=== PATIENT | male | born 1950 | race Caucasian/White ===

== ENCOUNTER → 2021-09-19 | Outpatient (REF) | payer SELFPAY ==
[2021-09-19 09:59] LABS: Absolute Lymphocyte Count 1.74 X10^3/uL (0.83-4.51); Absolute Neutrophil Count 4.2 X10^3/uL (2.0-7.7); Basophil# 0.04 X10^3/uL; Basophil% 0.6 % (0-1); Eosinophil# 0.23 X10^3/uL; Eosinophils% 3.5 % (0-5); Hematocrit 32.9 % (40-54); Hemoglobin 10.2 g/dL (13.0-16.5); Lymphocyte # 1.74 X10^3/ul (0.83-4.51); Lymphocyte % 26.2 % (19-41); Mean Corpuscular Hgb 29.4 pg (27.0-32.0); Mean Corpuscular Volume 94.8 fL (80-94); Mean Platelet Vol. 9.6 fl (6.2-12.0); Monocyte# 0.43 X10^3/uL; Monocyte% 6.5 % (0-10); NRBC Flagged by Analyzer 0 % (0-5); Neutrophil # 4.16 X10^3/uL (2.7-7.7); Neutrophil % 62.6 % (47-70); Platelet Count 342 K/mm3 (150-450); RBC Distribution Width CV 17.1 % (11.6-14.6); RBC Distribution Width SD 59.4 fl (35.1-43.9); Red Blood Count 3.47 M/mm3 (4.6-6.2); White Blood Count 6.6 K/mm3 (4.4-11.0)
[2021-09-19 11:12] LABS: ALB/GLOB Ratio 0.8 RATIO (0.9-2.4); AST(SGOT) 12 U/L (15-37); Alanine Aminotransfer ALT/SGPT 23 U/L (16-61); Albumin, Serum 2.8 g/dL (3.2-5.0); Alkaline Phosphatase 109 U/L (45-117); Anion Gap 8 (5-15); BUN 9 mg/dL (7-18); BUN/Creat Ratio 15.3 RATIO (10-20); Chloride 105 mmol/L (98-107); Creatinine, Serum 0.59 mg/dL (0.70-1.30); EST Glomerular Filtration Rate 145 mL/min (>60); Est Glom Filt Rate - Afr Amer 175 mL/min (>60); Globulin 3.5 g/dL (2.2-4.2); Glucose 91 mg/dL (74-106); Potassium 3.8 mmol/L (3.5-5.1); Protein, Total 6.3 g/dL (6.4-8.2); Sodium Level 139 mmol/L (136-145)
== END | disposition home or self-care (01) ==
LOC: OLS.SANC 07:45
PROVIDERS: Referring Provider Internal Medicine; Visit Provider Internal Medicine
DX: D64.9 Anemia, unspecified (principal)
CPT/HCPCS: 36415; 80053; 85025

== ENCOUNTER → 2021-10-20 | Outpatient (REF) | payer MEDICARE, MEDICAID, SELFPAY ==
[2021-10-20 08:27] LABS: Hematocrit 32.7 % (40-54); Hemoglobin 10.1 g/dL (13.0-16.5); Mean Corp Hgb Conc 30.9 g/dL (32-36); Mean Corpuscular Hgb 27.8 pg (27.0-32.0); Mean Corpuscular Volume 90.1 fL (80-94); Mean Platelet Vol. 9.8 fl (6.2-12.0); Platelet Count 404 K/mm3 (150-450); RBC Distribution Width CV 15.6 % (11.6-14.6); RBC Distribution Width SD 52.1 fl (35.1-43.9); Red Blood Count 3.63 M/mm3 (4.6-6.2); White Blood Count 8.7 K/mm3 (4.4-11.0)
[2021-10-20 08:59] LABS: Anion Gap 7 (5-15); BUN 13 mg/dL (7-18); BUN/Creat Ratio 17.4 RATIO (10-20); Calcium,Total 9.1 mg/dL (8.5-10.1); Chloride 108 mmol/L (98-107); Creatinine, Serum 0.75 mg/dL (0.70-1.30); EST Glomerular Filtration Rate 110 mL/min (>60); Est Glom Filt Rate - Afr Amer 133 mL/min (>60); Glucose 93 mg/dL (74-106); Potassium 3.9 mmol/L (3.5-5.1); Sodium Level 140 mmol/L (136-145)
== END | disposition home or self-care (01) ==
LOC: OLS.SANC 05:00
PROVIDERS: Referring Provider Internal Medicine; Visit Provider Internal Medicine
DX: G40.909 Epilepsy, unspecified, not intractable, without status epilepticus (principal); E87.6 Hypokalemia
CPT/HCPCS: 36415; 80048; 85027

== ENCOUNTER → 2021-10-31 | Outpatient (REF) | payer MEDICARE, MEDICAID, SELFPAY ==
[2021-10-31 08:46] LABS: Prothrombin Time Fingerstick 23.7 SEC (11.7-14.9)
== END | disposition home or self-care (01) ==
LOC: OLS.SANC 04:00
PROVIDERS: Referring Provider Internal Medicine; Visit Provider Internal Medicine
DX: Z79.899 Other long term (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 (principal)
CPT/HCPCS: 36416; 85610

== ENCOUNTER → 2021-11-04 | Outpatient (REF) | payer MEDICARE, MEDICAID, SELFPAY ==
[2021-11-04 08:04] LABS: International Normalized Ratio 1.8; Prothrombin Time (Protime)PT. 20.4 SECONDS (11.7-14.9)
[2021-11-04 08:12] LABS: Hematocrit 35.2 % (40-54); Hemoglobin 11.1 g/dL (13.0-16.5); Mean Corp Hgb Conc 31.5 g/dL (32-36); Mean Corpuscular Hgb 27.4 pg (27.0-32.0); Mean Corpuscular Volume 86.9 fL (80-94); Mean Platelet Vol. 10.8 fl (6.2-12.0); Platelet Count 364 K/mm3 (150-450); RBC Distribution Width SD 48.1 fl (35.1-43.9); Red Blood Count 4.05 M/mm3 (4.6-6.2); White Blood Count 8.8 K/mm3 (4.4-11.0)
[2021-11-04 08:16] LABS: D-Dimer Quantitative (DVT/PE) 0.56 FEU/ug/m (0.27-0.49)
[2021-11-04 08:37] LABS: Anion Gap 8 (5-15); BUN 12 mg/dL (7-18); BUN/Creat Ratio 18.3 RATIO (10-20); Calcium,Total 9.1 mg/dL (8.5-10.1); Chloride 106 mmol/L (98-107); Creatinine, Serum 0.66 mg/dL (0.70-1.30); EST Glomerular Filtration Rate 128 mL/min (>60); Est Glom Filt Rate - Afr Amer 155 mL/min (>60); Glucose 100 mg/dL (74-106); Potassium 3.7 mmol/L (3.5-5.1); Sodium Level 140 mmol/L (136-145); Troponin-I HS 11 pg/mL (3.0-78.0)
== END | disposition home or self-care (01) ==
LOC: OLS.SANC 05:00
PROVIDERS: Visit Provider Internal Medicine
DX: E87.6 Hypokalemia (principal); G40.909 Epilepsy, unspecified, not intractable, without status epilepticus; D64.9 Anemia, unspecified
CPT/HCPCS: 36415; 80048; 84484; 85027; 85379; 85610; 86140

== ENCOUNTER → 2021-11-08 | Outpatient (REF) | payer MEDICARE, MEDICAID, SELFPAY ==
[2021-11-08 07:05] LABS: INR Fingerstick 2.5
== END | disposition home or self-care (01) ==
LOC: OLS.SANC 05:00
PROVIDERS: Visit Provider Internal Medicine
DX: I50.9 Heart failure, unspecified (principal); D64.9 Anemia, unspecified
CPT/HCPCS: 36416; 85610

== ENCOUNTER → 2021-11-14 | Outpatient (REF) | payer MEDICARE, MEDICAID, SELFPAY ==
[2021-11-14 08:30] LABS: International Normalized Ratio 3.1; Prothrombin Time (Protime)PT. 31.4 SECONDS (11.7-14.9)
== END | disposition home or self-care (01) ==
LOC: OLS.SANC 05:00
PROVIDERS: Visit Provider Internal Medicine
DX: Z79.01 Long term (current) use of 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 (principal); Z79.899 Other long term (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
CPT/HCPCS: 36415; 85610

== ENCOUNTER 2021-11-21 04:00 | Outpatient (REF) | payer MEDICARE, MEDICAID, SELFPAY ==
[2021-11-21 07:56] LABS: INR Fingerstick 4.1; Prothrombin Time Fingerstick 45.5 SEC (11.7-14.9)
[2021-11-21 08:53] LABS: International Normalized Ratio 3.9; Prothrombin Time (Protime)PT. 37.7 SECONDS (11.7-14.9)
== END 2021-11-21 23:59 | disposition home or self-care (01) ==
LOC: OLS.SANC 04:00
PROVIDERS: Referring Provider Internal Medicine; Visit Provider Internal Medicine
DX: I10 Essential (primary) hypertension (principal); D64.9 Anemia, unspecified; Z79.01 Long term (current) use of 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
CPT/HCPCS: 36415; 36416; 85610

== ENCOUNTER → 2021-11-22 | Outpatient (REF) | payer MEDICARE, MEDICAID, SELFPAY ==
[2021-11-22 08:45] LABS: INR Fingerstick 3.8; Prothrombin Time Fingerstick 42.8 SEC (11.7-14.9)
== END | disposition home or self-care (01) ==
LOC: OLS.SANC 05:00
PROVIDERS: Visit Provider Internal Medicine
DX: Z79.01 Long term (current) use of 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 (principal)
CPT/HCPCS: 36416; 85610

== ENCOUNTER → 2021-11-23 | Outpatient (REF) | payer MEDICARE, MEDICAID, SELFPAY ==
[2021-11-23 11:40] LABS: International Normalized Ratio 2.7
== END | disposition home or self-care (01) ==
LOC: OLS.SANC 07:59
PROVIDERS: Visit Provider Internal Medicine
DX: Z79.01 Long term (current) use of 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 (principal)
CPT/HCPCS: 36415; 85610

== ENCOUNTER → 2021-11-28 | Outpatient (REF) | payer MEDICARE, MEDICAID, SELFPAY ==
[2021-11-28 08:05] LABS: INR Fingerstick 1.6; Prothrombin Time Fingerstick 18.8 SEC (11.7-14.9)
== END | disposition home or self-care (01) ==
LOC: OLS.SANC 05:00
PROVIDERS: Visit Provider Internal Medicine
DX: Z79.01 Long term (current) use of 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 (principal)
CPT/HCPCS: 36416; 85610

== ENCOUNTER → 2021-12-01 | Outpatient (REF) | payer SELFPAY ==
[2021-12-02 08:20] LABS: Bacteria 0 SEEN /hpf (None Seen); Mucous, Urine 0 SEEN /hpf (<or=2+); Red Blood Cells-Urine 0 SEEN /hpf (0-5); White Blood Cells 0 SEEN /hpf (0-5)
[2021-12-02 08:34] LABS: Color, Urine Yellow (Yellow); Glucose, Dipstick 50 mg/dl (Normal); Ketone-Dipstick Negative (Negative); Leukocyte Esterase-Dipstick Negative /ul (Negative); Nitrite-Dipstick Negative (Negative); Occult Blood-Urine Negative /ul (Negative); Protein-Dipstick 30 mg/dl (Negative); Urine Bilirubin Dipstick Negative (Negative); Urine Clarity Clear (Clear); Urine Urobilinogen Normal (Normal)
[2021-12-02 08:51] LABS: Squamous Epithelial Cells - UA 0-5 SEEN /hpf (0-5)
[2021-12-02 08:53] LABS: Yeast-Urine 2+ /hpf (None Seen)
== END | disposition home or self-care (01) ==
LOC: OLS.SANC 18:00
PROVIDERS: Visit Provider Internal Medicine
DX: Z79.01 Long term (current) use of 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 (principal); R39.9 Unspecified symptoms and signs involving the genitourinary system

== ENCOUNTER → 2021-12-01 | Outpatient (REF) | payer MEDICARE, MEDICAID, SELFPAY ==
[2021-12-01 08:33] LABS: Hematocrit 36.9 % (40-54); Hemoglobin 11.6 g/dL (13.0-16.5); Mean Corp Hgb Conc 31.4 g/dL (32-36); Mean Corpuscular Hgb 26.8 pg (27.0-32.0); Mean Corpuscular Volume 85.2 fL (80-94); Mean Platelet Vol. 11.2 fl (6.2-12.0); Platelet Count 336 K/mm3 (150-450); RBC Distribution Width CV 15.5 % (11.6-14.6); RBC Distribution Width SD 47.9 fl (35.1-43.9); Red Blood Count 4.33 M/mm3 (4.6-6.2); White Blood Count 10.7 K/mm3 (4.4-11.0)
[2021-12-01 08:41] LABS: INR Fingerstick 1.6; Prothrombin Time Fingerstick 19.8 SEC (11.7-14.9)
[2021-12-01 09:08] LABS: Anion Gap 7 (5-15); BUN 18 mg/dL (7-18); Calcium,Total 9.4 mg/dL (8.5-10.1); Chloride 104 mmol/L (98-107); Creatinine, Serum 0.75 mg/dL (0.70-1.30); EST Glomerular Filtration Rate 110 mL/min (>60); Est Glom Filt Rate - Afr Amer 133 mL/min (>60); Glucose 90 mg/dL (74-106); Potassium 3.7 mmol/L (3.5-5.1); Sodium Level 138 mmol/L (136-145)
== END | disposition home or self-care (01) ==
LOC: OLS.SANC 05:00
PROVIDERS: Visit Provider Internal Medicine
DX: G93.40 Encephalopathy, unspecified (principal); Z79.01 Long term (current) use of 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
CPT/HCPCS: 36415; 36416; 80048; 85027; 85610

== ENCOUNTER → 2021-12-05 | Outpatient (REF) | payer MEDICARE, MEDICAID, SELFPAY ==
[2021-12-05 10:27] LABS: Absolute Lymphocyte Count 2.97 X10^3/uL (0.83-4.51); Absolute Neutrophil Count 5.6 X10^3/uL (2.0-7.7); Basophil# 0.06 X10^3/uL; Basophil% 0.6 % (0-1); Eosinophil# 0.21 X10^3/uL; Eosinophils% 2.3 % (0-5); Hematocrit 38.1 % (40-54); Hemoglobin 12.1 g/dL (13.0-16.5); Lymphocyte # 2.97 X10^3/ul (0.83-4.51); Mean Corp Hgb Conc 31.8 g/dL (32-36); Mean Corpuscular Hgb 26.9 pg (27.0-32.0); Mean Corpuscular Volume 84.9 fL (80-94); Mean Platelet Vol. 10.8 fl (6.2-12.0); Monocyte# 0.44 X10^3/uL; Monocyte% 4.7 % (0-10); NRBC Flagged by Analyzer 0 % (0-5); Neutrophil # 5.57 X10^3/uL (2.7-7.7); Neutrophil % 60.2 % (47-70); Platelet Count 363 K/mm3 (150-450); RBC Distribution Width CV 15.7 % (11.6-14.6); RBC Distribution Width SD 48.5 fl (35.1-43.9); Red Blood Count 4.49 M/mm3 (4.6-6.2); White Blood Count 9.3 K/mm3 (4.4-11.0)
[2021-12-05 10:41] LABS: International Normalized Ratio 1.8; Prothrombin Time (Protime)PT. 20.5 SECONDS (11.7-14.9)
[2021-12-05 10:54] LABS: Anion Gap 4 (5-15); BUN 19 mg/dL (7-18); BUN/Creat Ratio 25.4 RATIO (10-20); Calcium,Total 9.4 mg/dL (8.5-10.1); Chloride 106 mmol/L (98-107); Creatinine, Serum 0.75 mg/dL (0.70-1.30); EST Glomerular Filtration Rate 110 mL/min (>60); Est Glom Filt Rate - Afr Amer 133 mL/min (>60); Glucose 107 mg/dL (74-106); Potassium 3.4 mmol/L (3.5-5.1); Sodium Level 139 mmol/L (136-145)
== END ==
LOC: OLS.SANC 04:00
PROVIDERS: Referring Provider Internal Medicine; Visit Provider Internal Medicine
DX: E87.6 Hypokalemia (principal); Z79.01 Long term (current) use of 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
CPT/HCPCS: 36415; 80048; 85025; 85610

== ENCOUNTER → 2021-12-08 | Outpatient (REF) | payer MEDICARE, MEDICAID, SELFPAY ==
[2021-12-08 16:21] LABS: INR Fingerstick 1.8
== END ==
LOC: OLS.SANC 05:00
PROVIDERS: Visit Provider Internal Medicine
DX: I10 Essential (primary) hypertension (principal); D64.9 Anemia, unspecified; Z79.01 Long term (current) use of 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
CPT/HCPCS: 36416; 85610

== ENCOUNTER → 2021-12-12 | Outpatient (REF) | payer MEDICARE, MEDICAID, SELFPAY ==
[2021-12-12 09:31] LABS: Prothrombin Time Fingerstick 23.9 SEC (11.7-14.9)
== END ==
LOC: OLS.SANC 05:00
PROVIDERS: Visit Provider Internal Medicine
DX: Z79.01 Long term (current) use of 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 (principal)
CPT/HCPCS: 36416; 85610

== ENCOUNTER → 2021-12-19 | Outpatient (REF) | payer MEDICARE, MEDICAID, SELFPAY ==
[2021-12-19 09:45] LABS: Hematocrit 38.5 % (40-54); Hemoglobin 12.2 g/dL (13.0-16.5); Mean Corp Hgb Conc 31.7 g/dL (32-36); Mean Corpuscular Hgb 27.1 pg (27.0-32.0); Mean Corpuscular Volume 85.6 fL (80-94); Mean Platelet Vol. 11.3 fl (6.2-12.0); Platelet Count 363 K/mm3 (150-450); RBC Distribution Width SD 50.5 fl (35.1-43.9); White Blood Count 11.2 K/mm3 (4.4-11.0)
[2021-12-19 10:00] LABS: Anion Gap 5 (5-15); BUN 18 mg/dL (7-18); BUN/Creat Ratio 27.1 RATIO (10-20); Calcium,Total 9.5 mg/dL (8.5-10.1); Chloride 103 mmol/L (98-107); Creatinine, Serum 0.66 mg/dL (0.70-1.30); EST Glomerular Filtration Rate 126 mL/min (>60); Est Glom Filt Rate - Afr Amer 153 mL/min (>60); Glucose 92 mg/dL (74-106); Potassium 3.5 mmol/L (3.5-5.1); Sodium Level 138 mmol/L (136-145)
== END ==
LOC: OLS.SANC 05:00
PROVIDERS: Visit Provider Internal Medicine
DX: D64.9 Anemia, unspecified (principal); I50.9 Heart failure, unspecified
CPT/HCPCS: 36415; 80048; 85027

== ENCOUNTER → 2021-12-22 | Outpatient (REF) | payer MEDICARE, MEDICAID, SELFPAY ==
[2021-12-22 10:04] LABS: Hematocrit 36.6 % (40-54); Hemoglobin 11.5 g/dL (13.0-16.5); Mean Corp Hgb Conc 31.4 g/dL (32-36); Mean Corpuscular Hgb 26.5 pg (27.0-32.0); Mean Corpuscular Volume 84.3 fL (80-94); Mean Platelet Vol. 10.8 fl (6.2-12.0); Platelet Count 317 K/mm3 (150-450); RBC Distribution Width CV 16.1 % (11.6-14.6); RBC Distribution Width SD 49.1 fl (35.1-43.9); Red Blood Count 4.34 M/mm3 (4.6-6.2); White Blood Count 9.6 K/mm3 (4.4-11.0)
[2021-12-22 10:08] LABS: Anion Gap 7 (5-15); BUN 15 mg/dL (7-18); BUN/Creat Ratio 22.5 RATIO (10-20); Calcium,Total 8.6 mg/dL (8.5-10.1); Chloride 106 mmol/L (98-107); Creatinine, Serum 0.67 mg/dL (0.70-1.30); EST Glomerular Filtration Rate 125 mL/min (>60); Est Glom Filt Rate - Afr Amer 152 mL/min (>60); Glucose 93 mg/dL (74-106); Potassium 3.5 mmol/L (3.5-5.1); Sodium Level 140 mmol/L (136-145)
[2021-12-22 11:19] LABS: Color, Urine Yellow (Yellow); Glucose, Dipstick Normal (Normal); Ketone-Dipstick Negative (Negative); Leukocyte Esterase-Dipstick 500 /ul (Negative); Mucous, Urine 0 SEEN /hpf (<or=2+); Nitrite-Dipstick Positive (Negative); Occult Blood-Urine 150 /ul (Negative); Protein-Dipstick 30 mg/dl (Negative); Urine Bilirubin Dipstick Negative (Negative); Urine Clarity Sl. Cloudy (Clear); Urine Urobilinogen Normal (Normal)
[2021-12-22 11:31] LABS: Bacteria 2+ /hpf (None Seen); Calcium Oxalate Crystals Ur 1+ /hpf (<or=2+); Red Blood Cells-Urine 10-25 SEEN /hpf (0-5); Squamous Epithelial Cells - UA 0-5 SEEN /hpf (0-5); White Blood Cells 25-50 SEEN /hpf (0-5)
== END ==
LOC: OLS.SANC 05:00
PROVIDERS: Visit Provider Internal Medicine
DX: D64.9 Anemia, unspecified (principal); I10 Essential (primary) hypertension; Z79.899 Other long term (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
CPT/HCPCS: 36415; 80048; 81001; 85027; 87077; 87086; 87088; 87186

== ENCOUNTER → 2021-12-26 | Outpatient (REF) | payer MEDICARE, MEDICAID, SELFPAY ==
[2021-12-26 08:11] LABS: INR Fingerstick 1.7; Prothrombin Time Fingerstick 20.8 SEC (11.7-14.9)
== END ==
LOC: OLS.SANC 05:00
PROVIDERS: Visit Provider Internal Medicine
DX: Z79.01 Long term (current) use of 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 (principal)
CPT/HCPCS: 36416; 85610

== ENCOUNTER → 2021-12-28 | Outpatient (REF) | payer MEDICARE, MEDICAID, SELFPAY ==
[2021-12-28 08:59] LABS: Hematocrit 34.9 % (40-54); Hemoglobin 11.2 g/dL (13.0-16.5); Mean Corp Hgb Conc 32.1 g/dL (32-36); Mean Corpuscular Hgb 26.5 pg (27.0-32.0); Mean Corpuscular Volume 82.7 fL (80-94); Mean Platelet Vol. 10.1 fl (6.2-12.0); Platelet Count 339 K/mm3 (150-450); RBC Distribution Width CV 16.5 % (11.6-14.6); RBC Distribution Width SD 49.1 fl (35.1-43.9); Red Blood Count 4.22 M/mm3 (4.6-6.2); White Blood Count 10.2 K/mm3 (4.4-11.0)
[2021-12-28 09:24] LABS: Anion Gap 5 (5-15); BUN 20 mg/dL (7-18); BUN/Creat Ratio 33.7 RATIO (10-20); Calcium,Total 8.6 mg/dL (8.5-10.1); Chloride 106 mmol/L (98-107); Creatinine, Serum 0.59 mg/dL (0.70-1.30); EST Glomerular Filtration Rate 143 mL/min (>60); Est Glom Filt Rate - Afr Amer 174 mL/min (>60); Glucose 91 mg/dL (74-106); Potassium 3.4 mmol/L (3.5-5.1); Sodium Level 141 mmol/L (136-145)
== END ==
LOC: OLS.SANC 05:00
PROVIDERS: Visit Provider Internal Medicine
DX: I12.9 Hypertensive chronic kidney disease with stage 1 through stage 4 chronic kidney disease, or unspecified chronic kidney disease (principal); I50.9 Heart failure, unspecified; D64.9 Anemia, unspecified
CPT/HCPCS: 36415; 80048; 85027

== ENCOUNTER → 2021-12-30 | Outpatient (REF) | payer MEDICARE, MEDICAID, SELFPAY ==
[2021-12-30 08:55] LABS: Prothrombin Time Fingerstick 23.7 SEC (11.7-14.9)
== END ==
LOC: OLS.SANC 05:00
PROVIDERS: Visit Provider Internal Medicine
DX: Z79.01 Long term (current) use of 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 (principal)
CPT/HCPCS: 36416; 85610

== ENCOUNTER → 2022-01-05 | Outpatient (REF) | payer MEDICARE, MEDICAID, SELFPAY ==
[2022-01-05 10:06] LABS: Hematocrit 36.2 % (40-54); Hemoglobin 11.2 g/dL (13.0-16.5); Mean Corp Hgb Conc 30.9 g/dL (32-36); Mean Corpuscular Hgb 26.2 pg (27.0-32.0); Mean Corpuscular Volume 84.8 fL (80-94); Mean Platelet Vol. 10.3 fl (6.2-12.0); Platelet Count 373 K/mm3 (150-450); RBC Distribution Width CV 16.8 % (11.6-14.6); RBC Distribution Width SD 51.8 fl (35.1-43.9); Red Blood Count 4.27 M/mm3 (4.6-6.2); White Blood Count 10.4 K/mm3 (4.4-11.0)
[2022-01-05 10:22] LABS: Anion Gap 8 (5-15); BUN 15 mg/dL (7-18); Calcium,Total 8.8 mg/dL (8.5-10.1); Chloride 107 mmol/L (98-107); Creatinine, Serum 0.75 mg/dL (0.70-1.30); EST Glomerular Filtration Rate 110 mL/min (>60); Est Glom Filt Rate - Afr Amer 133 mL/min (>60); Glucose 82 mg/dL (74-106); Potassium 3.4 mmol/L (3.5-5.1); Sodium Level 143 mmol/L (136-145)
== END ==
LOC: OLS.SANC 07:55
PROVIDERS: Visit Provider Internal Medicine
DX: D64.9 Anemia, unspecified (principal); I10 Essential (primary) hypertension
CPT/HCPCS: 36415; 80048; 85027

== ENCOUNTER → 2022-01-10 | Outpatient (REF) | payer MEDICARE, MEDICAID, SELFPAY ==
[2022-01-10 09:59] LABS: International Normalized Ratio 1.8; Prothrombin Time (Protime)PT. 20.9 SECONDS (11.7-14.9)
== END ==
LOC: OLS.SANC 08:03
PROVIDERS: Visit Provider Internal Medicine
DX: Z79.01 Long term (current) use of 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 (principal); Z79.899 Other long term (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
CPT/HCPCS: 36415; 85610

== ENCOUNTER → 2022-01-19 | Outpatient (REF) | payer MEDICARE, MEDICAID, SELFPAY ==
[2022-01-19 09:25] LABS: INR Fingerstick 2.2; Prothrombin Time Fingerstick 25.7 SEC (11.7-14.9)
== END ==
LOC: OLS.SANC 05:00
PROVIDERS: Visit Provider Internal Medicine
DX: D64.9 Anemia, unspecified (principal); I11.0 Hypertensive heart disease with heart failure; I50.9 Heart failure, unspecified
CPT/HCPCS: 36416; 85610

== ENCOUNTER → 2022-01-26 | Outpatient (REF) | payer MEDICARE, MEDICAID, SELFPAY ==
[2022-01-26 07:50] LABS: INR Fingerstick 1.8; Prothrombin Time Fingerstick 21.8 SEC (11.7-14.9)
== END ==
LOC: OLS.SANC 05:00
PROVIDERS: Visit Provider Internal Medicine
DX: D64.9 Anemia, unspecified (principal); I50.9 Heart failure, unspecified
CPT/HCPCS: 36416; 85610

== ENCOUNTER → 2022-01-30 | Outpatient (REF) | payer MEDICARE, MEDICAID, SELFPAY ==
[2022-01-30 08:01] LABS: INR Fingerstick 1.7; Prothrombin Time Fingerstick 20.1 SEC (11.7-14.9)
== END ==
LOC: OLS.SANC 05:00
PROVIDERS: Visit Provider Internal Medicine
DX: Z79.01 Long term (current) use of 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 (principal)
CPT/HCPCS: 36416; 85610

== ENCOUNTER → 2022-02-06 | Outpatient (REF) | payer MEDICARE, MEDICAID, SELFPAY ==
[2022-02-06 09:36] LABS: INR Fingerstick 2.3; Prothrombin Time Fingerstick 26.6 SEC (11.7-14.9)
== END ==
LOC: OLS.SANC 04:00
PROVIDERS: Referring Provider Internal Medicine; Visit Provider Internal Medicine
DX: Z79.01 Long term (current) use of 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 (principal)
CPT/HCPCS: 36416; 85610

== ENCOUNTER → 2022-02-13 | Outpatient (REF) | payer MEDICARE, MEDICAID, SELFPAY ==
[2022-02-13 08:15] LABS: INR Fingerstick 2.3; Prothrombin Time Fingerstick 26.7 SEC (11.7-14.9)
== END ==
LOC: OLS.SANC 04:00
PROVIDERS: Referring Provider Internal Medicine; Visit Provider Internal Medicine
DX: Z79.01 Long term (current) use of 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 (principal)
CPT/HCPCS: 36416; 85610

== ENCOUNTER → 2022-02-20 | Outpatient (REF) | payer MEDICARE, MEDICAID, SELFPAY ==
[2022-02-20 08:11] LABS: INR Fingerstick 2.6; Prothrombin Time Fingerstick 30.1 SEC (11.7-14.9)
== END ==
LOC: OLS.SANC 04:00
PROVIDERS: Visit Provider Internal Medicine
DX: Z79.01 Long term (current) use of 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 (principal)
CPT/HCPCS: 36416; 85610

== ENCOUNTER → 2022-03-06 | Outpatient (REF) | payer MEDICARE, MEDICAID, SELFPAY ==
[2022-03-06 08:16] LABS: INR Fingerstick 1.7
== END ==
LOC: OLS.SANC 05:00
PROVIDERS: Visit Provider Internal Medicine
DX: Z79.01 Long term (current) use of 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 (principal)
CPT/HCPCS: 36416; 85610

== ENCOUNTER → 2022-03-09 | Outpatient (REF) | payer MEDICARE, MEDICAID, SELFPAY ==
[2022-03-09 08:56] LABS: INR Fingerstick 1.8; Prothrombin Time Fingerstick 21.9 SEC (11.7-14.9)
== END ==
LOC: OLS.SANC 05:00
PROVIDERS: Visit Provider Internal Medicine
DX: I10 Essential (primary) hypertension (principal); D64.9 Anemia, unspecified; Z79.01 Long term (current) use of 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
CPT/HCPCS: 36416; 85610

== ENCOUNTER → 2022-03-16 | Outpatient (REF) | payer MEDICARE, MEDICAID, SELFPAY ==
[2022-03-16 08:21] LABS: INR Fingerstick 1.7; Prothrombin Time Fingerstick 19.9 SEC (11.7-14.9)
== END ==
LOC: OLS.SANC 05:00
PROVIDERS: Visit Provider Internal Medicine
DX: Z79.01 Long term (current) use of 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 (principal)
CPT/HCPCS: 36416; 85610

== ENCOUNTER → 2022-03-23 | Outpatient (REF) | payer MEDICARE, MEDICAID, SELFPAY ==
[2022-03-23 08:35] LABS: INR Fingerstick 1.7; Prothrombin Time Fingerstick 20.9 SEC (11.7-14.9)
== END ==
LOC: OLS.SANC 05:00
PROVIDERS: Visit Provider Internal Medicine
DX: Z79.01 Long term (current) use of 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 (principal)
CPT/HCPCS: 36416; 85610

== ENCOUNTER → 2022-03-28 | Outpatient (REF) | payer MEDICARE, MEDICAID, SELFPAY ==
[2022-03-28 08:51] LABS: INR Fingerstick 2.1; Prothrombin Time Fingerstick 24.8 SEC (11.7-14.9)
== END ==
LOC: OLS.SANC 05:00
PROVIDERS: Visit Provider Internal Medicine
DX: Z79.01 Long term (current) use of 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 (principal)
CPT/HCPCS: 36416; 85610

== ENCOUNTER → 2022-04-11 | Outpatient (REF) | payer MEDICARE, MEDICAID, SELFPAY ==
[2022-04-11 08:35] LABS: INR Fingerstick 2.9; Prothrombin Time Fingerstick 32.8 SEC (11.7-14.9)
== END ==
LOC: OLS.SANC 05:00
PROVIDERS: Visit Provider Internal Medicine
DX: Z79.899 Other long term (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 (principal)
CPT/HCPCS: 36416; 85610

== ENCOUNTER → 2022-04-26 | Outpatient (REF) | payer MEDICARE, MEDICAID, SELFPAY ==
[2022-04-26 08:26] LABS: INR Fingerstick 2.8; Prothrombin Time Fingerstick 32.6 SEC (11.7-14.9)
== END ==
LOC: OLS.SANC 05:00
PROVIDERS: Visit Provider Internal Medicine
DX: Z79.01 Long term (current) use of 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 (principal)
CPT/HCPCS: 36416; 85610

== ENCOUNTER → 2022-04-27 | Outpatient (REF) | payer MEDICARE, MEDICAID, SELFPAY ==
[2022-04-27 08:21] LABS: INR Fingerstick 2.7; Prothrombin Time Fingerstick 31.1 SEC (11.7-14.9)
== END ==
LOC: OLS.SANC 05:00
PROVIDERS: Visit Provider Internal Medicine
DX: D64.9 Anemia, unspecified (principal); Z79.01 Long term (current) use of 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
CPT/HCPCS: 36416; 85610

== ENCOUNTER → 2022-05-02 | Outpatient (REF) | payer MEDICARE, MEDICAID, SELFPAY ==
[2022-05-02 08:50] LABS: Prothrombin Time Fingerstick 23.2 SEC (11.7-14.9)
== END ==
LOC: OLS.SANC 05:00
PROVIDERS: Visit Provider Internal Medicine
DX: Z79.01 Long term (current) use of 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 (principal)
CPT/HCPCS: 36416; 85610

== ENCOUNTER → 2022-05-16 | Outpatient (REF) | payer MEDICARE, MEDICAID, SELFPAY ==
[2022-05-16 09:05] LABS: INR Fingerstick 2.6; Prothrombin Time Fingerstick 29.9 SEC (11.7-14.9)
== END ==
LOC: OLS.SANC 05:00
PROVIDERS: Visit Provider Internal Medicine
DX: Z79.01 Long term (current) use of 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 (principal); D64.9 Anemia, unspecified; I50.9 Heart failure, unspecified
CPT/HCPCS: 36416; 85610

== ENCOUNTER → 2022-05-30 | Outpatient (REF) | payer MEDICARE, MEDICAID, SELFPAY ==
[2022-05-30 10:21] LABS: Hematocrit 39.5 % (40-54); Hemoglobin 12.1 g/dL (13.0-16.5); Mean Corp Hgb Conc 30.6 g/dL (32-36); Mean Corpuscular Hgb 25.3 pg (27.0-32.0); Mean Corpuscular Volume 82.5 fL (80-94); Mean Platelet Vol. 10.4 fl (6.2-12.0); Platelet Count 308 K/mm3 (150-450); RBC Distribution Width CV 16.2 % (11.6-14.6); RBC Distribution Width SD 48.8 fl (35.1-43.9); Red Blood Count 4.79 M/mm3 (4.6-6.2); White Blood Count 7.6 K/mm3 (4.4-11.0)
[2022-05-30 10:42] LABS: International Normalized Ratio 1.9; Prothrombin Time (Protime)PT. 21.6 SECONDS (11.7-14.9)
[2022-05-30 10:46] LABS: Anion Gap 8 (5-15); BUN 16 mg/dL (7-18); BUN/Creat Ratio 21.4 RATIO (10-20); Calcium,Total 9.1 mg/dL (8.5-10.1); Chloride 105 mmol/L (98-107); Creatinine, Serum 0.75 mg/dL (0.70-1.30); EST Glomerular Filtration Rate 110 mL/min (>60); Est Glom Filt Rate - Afr Amer 133 mL/min (>60); Glucose 95 mg/dL (74-106); Potassium 3.9 mmol/L (3.5-5.1); Sodium Level 140 mmol/L (136-145)
== END ==
LOC: OLS.SANC 05:00
PROVIDERS: Visit Provider Internal Medicine
DX: D64.9 Anemia, unspecified (principal); I50.9 Heart failure, unspecified
CPT/HCPCS: 36415; 80048; 85027; 85610

== ENCOUNTER → 2022-06-06 | Outpatient (REF) | payer MEDICARE, MEDICAID, SELFPAY ==
[2022-06-06 08:51] LABS: INR Fingerstick 1.5; Prothrombin Time Fingerstick 18.4 SEC (11.7-14.9)
== END ==
LOC: OLS.SANC 05:00
PROVIDERS: Visit Provider Internal Medicine
DX: Z79.899 Other long term (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 (principal); Z79.01 Long term (current) use of 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
CPT/HCPCS: 36416; 85610

== ENCOUNTER → 2022-06-13 | Outpatient (REF) | payer MEDICARE, MEDICAID, SELFPAY ==
[2022-06-13 11:00] LABS: INR Fingerstick 2.1; Prothrombin Time Fingerstick 24.4 SEC (11.7-14.9)
== END ==
LOC: OLS.SANC 05:00
PROVIDERS: Visit Provider Internal Medicine
DX: D64.9 Anemia, unspecified (principal); I11.0 Hypertensive heart disease with heart failure; I50.9 Heart failure, unspecified
CPT/HCPCS: 36416; 85610

== ENCOUNTER → 2022-06-27 | Outpatient (REF) | payer MEDICARE, MEDICAID, SELFPAY ==
[2022-06-27 09:12] LABS: International Normalized Ratio 2.9; Prothrombin Time (Protime)PT. 29.9 SECONDS (11.7-14.9)
== END ==
LOC: OLS.SANC 05:00
PROVIDERS: Visit Provider Internal Medicine
DX: Z79.01 Long term (current) use of 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 (principal)
CPT/HCPCS: 36415; 85610

== ENCOUNTER → 2022-07-03 | Outpatient (REF) | payer MEDICARE, MEDICAID, SELFPAY ==
[2022-07-03 07:35] LABS: INR Fingerstick 1.9; Prothrombin Time Fingerstick 22.7 SEC (11.7-14.9)
== END ==
LOC: OLS.SANC 05:00
PROVIDERS: Visit Provider Internal Medicine
DX: Z79.01 Long term (current) use of 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 (principal)
CPT/HCPCS: 36416; 85610

== ENCOUNTER → 2022-07-10 | Outpatient (REF) | payer MEDICARE, MEDICAID, SELFPAY ==
[2022-07-10 09:11] LABS: INR Fingerstick 1.8
== END | disposition home or self-care (01) ==
LOC: OLS.SANC 05:00
PROVIDERS: Visit Provider Internal Medicine
DX: Z79.01 Long term (current) use of 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 (principal)
CPT/HCPCS: 36416; 85610

== ENCOUNTER → 2022-07-11 05:00 | Outpatient (REF) | payer MEDICARE, MEDICAID, SELFPAY ==
[2022-07-11 09:53] LABS: Mean Corp Hgb Conc 30.8 g/dL (32-36); Mean Corpuscular Hgb 25.8 pg (27.0-32.0); Mean Corpuscular Volume 83.7 fL (80-94); Mean Platelet Vol. 10.4 fl (6.2-12.0); Platelet Count 291 K/mm3 (150-450); RBC Distribution Width CV 16.8 % (11.6-14.6); Red Blood Count 4.66 M/mm3 (4.6-6.2); White Blood Count 9.4 K/mm3 (4.4-11.0)
[2022-07-11 10:00] LABS: Anion Gap 7 (5-15); BUN 18 mg/dL (7-18); Calcium,Total 9.2 mg/dL (8.5-10.1); Chloride 105 mmol/L (98-107); Creatinine, Serum 0.78 mg/dL (0.70-1.30); EST Glomerular Filtration Rate 104 mL/min (>60); Est Glom Filt Rate - Afr Amer 126 mL/min (>60); Glucose 97 mg/dL (74-106); Potassium 3.9 mmol/L (3.5-5.1); Sodium Level 140 mmol/L (136-145)
== END ==
LOC: OLS.SANC 05:00
PROVIDERS: Visit Provider Internal Medicine
DX: D64.9 Anemia, unspecified (principal); I50.9 Heart failure, unspecified
CPT/HCPCS: 36415; 80048; 85027

== ENCOUNTER → 2022-07-17 | Outpatient (REF) | payer MEDICARE, MEDICAID, SELFPAY ==
[2022-07-17 07:51] LABS: INR Fingerstick 1.3; Prothrombin Time Fingerstick 15.9 SEC (11.7-14.9)
== END ==
LOC: OLS.SANC 04:00
PROVIDERS: Referring Provider Internal Medicine; Visit Provider Internal Medicine
DX: D64.9 Anemia, unspecified (principal); I50.9 Heart failure, unspecified; Z79.01 Long term (current) use of 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
CPT/HCPCS: 36416; 85610

== ENCOUNTER → 2022-07-20 | Outpatient (REF) | payer MEDICARE, MEDICAID, SELFPAY ==
[2022-07-20 07:41] LABS: INR Fingerstick 1.9; Prothrombin Time Fingerstick 20.6 SEC (11.7-14.9)
== END ==
LOC: OLS.SANC 05:00
PROVIDERS: Visit Provider Internal Medicine
DX: I50.9 Heart failure, unspecified (principal); D64.9 Anemia, unspecified
CPT/HCPCS: 36416; 85610

== ENCOUNTER → 2022-07-24 | Outpatient (REF) | payer MEDICARE, MEDICAID, SELFPAY ==
[2022-07-24 08:57] LABS: International Normalized Ratio 2.3; Prothrombin Time (Protime)PT. 24.7 SECONDS (11.7-14.9)
== END ==
LOC: OLS.SANC 06:57
PROVIDERS: Referring Provider Internal Medicine; Visit Provider Internal Medicine
DX: Z79.01 Long term (current) use of 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 (principal)
CPT/HCPCS: 36415; 85610

== ENCOUNTER → 2022-07-31 | Outpatient (REF) | payer MEDICARE, MEDICAID, SELFPAY ==
[2022-07-31 07:50] LABS: INR Fingerstick 2.5; Prothrombin Time Fingerstick 26.8 SEC (11.7-14.9)
== END ==
LOC: OLS.SANC 05:00
PROVIDERS: Visit Provider Internal Medicine
DX: D64.9 Anemia, unspecified (principal); I50.9 Heart failure, unspecified; I11.0 Hypertensive heart disease with heart failure
CPT/HCPCS: 36416; 85610

== ENCOUNTER → 2022-08-14 | Outpatient (REF) | payer MEDICARE, MEDICAID, SELFPAY ==
[2022-08-14 07:40] LABS: INR Fingerstick 3.9; Prothrombin Time Fingerstick 40.6 SEC (11.7-14.9)
== END ==
LOC: OLS.SANC 05:00
PROVIDERS: Visit Provider Internal Medicine
DX: Z79.01 Long term (current) use of 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 (principal)
CPT/HCPCS: 36416; 85610

== ENCOUNTER → 2022-08-17 | Outpatient (REF) | payer MEDICARE, MEDICAID, SELFPAY ==
[2022-08-17 08:11] LABS: INR Fingerstick 2.8; Prothrombin Time Fingerstick 29.6 SEC (11.7-14.9)
== END ==
LOC: OLS.SANC 05:00
PROVIDERS: Visit Provider Internal Medicine
DX: D64.9 Anemia, unspecified (principal); I50.9 Heart failure, unspecified; Z79.01 Long term (current) use of 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
CPT/HCPCS: 36416; 85610

== ENCOUNTER → 2022-08-23 | Outpatient (REF) | payer MEDICARE, MEDICAID, SELFPAY ==
[2022-08-23 10:37] LABS: Hematocrit 40.2 % (40-54); Hemoglobin 12.5 g/dL (13.0-16.5); Mean Corp Hgb Conc 31.1 g/dL (32-36); Mean Corpuscular Hgb 26.2 pg (27.0-32.0); Mean Corpuscular Volume 84.3 fL (80-94); Platelet Count 268 K/mm3 (150-450); RBC Distribution Width SD 49.3 fl (35.1-43.9); Red Blood Count 4.77 M/mm3 (4.6-6.2)
[2022-08-23 10:49] LABS: Anion Gap 4 (5-15); BUN 17 mg/dL (7-18); BUN/Creat Ratio 22.8 RATIO (10-20); Calcium,Total 9.1 mg/dL (8.5-10.1); Chloride 108 mmol/L (98-107); Creatinine, Serum 0.74 mg/dL (0.70-1.30); EST Glomerular Filtration Rate 110 mL/min (>60); Est Glom Filt Rate - Afr Amer 134 mL/min (>60); Glucose 86 mg/dL (74-106); Potassium 4.3 mmol/L (3.5-5.1); Sodium Level 136 mmol/L (136-145)
== END ==
LOC: OLS.SANC 05:00
PROVIDERS: Visit Provider Internal Medicine
DX: D64.9 Anemia, unspecified (principal); E87.6 Hypokalemia
CPT/HCPCS: 36415; 80048; 85027

== ENCOUNTER → 2022-08-31 | Outpatient (REF) | payer MEDICARE, MEDICAID, SELFPAY ==
[2022-08-31 07:50] LABS: INR Fingerstick 2.3; Prothrombin Time Fingerstick 25.4 SEC (11.7-14.9)
== END ==
LOC: OLS.SANC 05:00
PROVIDERS: Visit Provider Internal Medicine
DX: D64.9 Anemia, unspecified (principal); I50.9 Heart failure, unspecified
CPT/HCPCS: 36416; 85610

== ENCOUNTER → 2022-09-14 | Outpatient (REF) | payer MEDICARE, MEDICAID, SELFPAY ==
[2022-09-14 08:15] LABS: INR Fingerstick 2.5; Prothrombin Time Fingerstick 27.4 SEC (11.7-14.9)
== END ==
LOC: OLS.SANC 05:00
PROVIDERS: Visit Provider Internal Medicine
DX: Z86.711 Personal history of pulmonary embolism (principal)
CPT/HCPCS: 36416; 85610

== ENCOUNTER → 2022-09-28 | Outpatient (REF) | payer MEDICARE, MEDICAID, SELFPAY ==
[2022-09-28 09:01] LABS: INR Fingerstick 2.7; Prothrombin Time Fingerstick 28.9 SEC (11.7-14.9)
== END ==
LOC: OLS.SANC 05:00
PROVIDERS: Visit Provider Internal Medicine
DX: D64.9 Anemia, unspecified (principal); I10 Essential (primary) hypertension; Z86.711 Personal history of pulmonary embolism
CPT/HCPCS: 36416; 85610

== ENCOUNTER → 2022-10-05 | Outpatient (REF) | payer MEDICARE, MEDICAID, SELFPAY ==
[2022-10-05 09:36] LABS: INR Fingerstick 2.6
== END ==
LOC: OLS.SANC 05:00
PROVIDERS: Visit Provider Internal Medicine
DX: Z86.711 Personal history of pulmonary embolism (principal); D64.9 Anemia, unspecified; I50.9 Heart failure, unspecified
CPT/HCPCS: 36416; 85610

== ENCOUNTER → 2022-10-12 | Outpatient (REF) | payer MEDICARE, MEDICAID, SELFPAY ==
[2022-10-12 07:54] LABS: INR Fingerstick 2.4; Prothrombin Time Fingerstick 26.4 SEC (11.7-14.9)
== END ==
LOC: OLS.SANC 05:00
PROVIDERS: Visit Provider Internal Medicine
DX: D64.9 Anemia, unspecified (principal); I26.99 Other pulmonary embolism without acute cor pulmonale; I50.9 Heart failure, unspecified; Z79.01 Long term (current) use of 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
CPT/HCPCS: 36416; 85610

== ENCOUNTER → 2022-10-26 | Outpatient (REF) | payer MEDICARE, MEDICAID, SELFPAY ==
[2022-10-26 08:23] LABS: INR Fingerstick 2.6; Prothrombin Time Fingerstick 28.5 SEC (11.7-14.9)
== END ==
LOC: OLS.SANC 05:00
PROVIDERS: Visit Provider Internal Medicine
DX: T85.0 Mechanical complication of ventricular intracranial (communicating) shunt (principal); X58.XXXS Exposure to other specified factors, sequela; Z86.711 Personal history of pulmonary embolism; Z79.01 Long term (current) use of 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
CPT/HCPCS: 36416; 85610

== ENCOUNTER → 2022-11-09 | Outpatient (REF) | payer MEDICARE, MEDICAID, SELFPAY ==
[2022-11-09 08:56] LABS: INR Fingerstick 2.1; Prothrombin Time Fingerstick 22.6 SEC (11.7-14.9)
== END ==
LOC: OLS.SANC 04:00
PROVIDERS: Referring Provider Internal Medicine; Visit Provider Internal Medicine
DX: I50.9 Heart failure, unspecified (principal); D64.9 Anemia, unspecified; Z79.01 Long term (current) use of 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
CPT/HCPCS: 36416; 85610

== ENCOUNTER → 2022-11-22 | Outpatient (REF) | payer MEDICARE, MEDICAID, SELFPAY ==
[2022-11-22 10:18] LABS: Hemoglobin 12.4 g/dL (13.0-16.5); Mean Corpuscular Hgb 26.7 pg (27.0-32.0); Mean Platelet Vol. 10.3 fl (6.2-12.0); Platelet Count 320 K/mm3 (150-450); RBC Distribution Width CV 15.9 % (11.6-14.6); Red Blood Count 4.65 M/mm3 (4.6-6.2)
[2022-11-22 10:36] LABS: Anion Gap 8 (5-15); BUN 20 mg/dL (7-18); BUN/Creat Ratio 23.6 RATIO (10-20); Calcium,Total 8.7 mg/dL (8.5-10.1); Chloride 105 mmol/L (98-107); Creatinine, Serum 0.85 mg/dL (0.70-1.30); EST Glomerular Filtration Rate 95 mL/min (>60); Est Glom Filt Rate - Afr Amer 115 mL/min (>60); Glucose 91 mg/dL (74-106); Potassium 4.1 mmol/L (3.5-5.1); Sodium Level 138 mmol/L (136-145)
== END ==
LOC: OLS.SANC 05:00
PROVIDERS: Visit Provider Internal Medicine
DX: I10 Essential (primary) hypertension (principal); D64.9 Anemia, unspecified
CPT/HCPCS: 36415; 80048; 85027

== ENCOUNTER → 2022-11-23 | Outpatient (REF) | payer MEDICARE, MEDICAID, SELFPAY ==
[2022-11-23 09:36] LABS: INR Fingerstick 2.2; Prothrombin Time Fingerstick 24.5 SEC (11.7-14.9)
== END ==
LOC: OLS.SANC 05:00
PROVIDERS: Visit Provider Internal Medicine
DX: I48.91 Unspecified atrial fibrillation (principal)
CPT/HCPCS: 36416; 85610

== ENCOUNTER → 2022-11-24 | Outpatient (REF) | payer MEDICARE, MEDICAID, SELFPAY ==
[2022-11-24 08:31] LABS: Bacteria 0 SEEN /hpf (None Seen); Mucous, Urine 0 SEEN /hpf (<or=2+); Red Blood Cells-Urine 0 SEEN /hpf (0-5); White Blood Cells 0 SEEN /hpf (0-5)
[2022-11-24 09:21] LABS: Color, Urine Yellow (Yellow); Glucose, Dipstick Normal (Normal); Ketone-Dipstick Negative (Negative); Leukocyte Esterase-Dipstick Negative /ul (Negative); Nitrite-Dipstick Negative (Negative); Occult Blood-Urine Negative /ul (Negative); Protein-Dipstick Negative (Negative); Urine Bilirubin Dipstick Negative (Negative); Urine Clarity Clear (Clear); Urine Urobilinogen Normal (Normal)
[2022-11-24 09:31] LABS: Hematocrit 37.6 % (40-54); Hemoglobin 11.8 g/dL (13.0-16.5); Mean Corp Hgb Conc 31.4 g/dL (32-36); Mean Corpuscular Hgb 26.6 pg (27.0-32.0); Mean Corpuscular Volume 84.7 fL (80-94); Mean Platelet Vol. 9.7 fl (6.2-12.0); Platelet Count 309 K/mm3 (150-450); RBC Distribution Width SD 49.4 fl (35.1-43.9); Red Blood Count 4.44 M/mm3 (4.6-6.2); White Blood Count 10.4 K/mm3 (4.4-11.0)
[2022-11-24 09:34] LABS: Amorphous Sediment 1+; Calcium Oxalate Crystals Ur RARE /hpf (<or=2+); Squamous Epithelial Cells - UA 0 SEEN /hpf (0-5)
[2022-11-24 09:46] LABS: ALB/GLOB Ratio 0.7 RATIO (0.9-2.4); AST(SGOT) 10 U/L (15-37); Alanine Aminotransfer ALT/SGPT 14 U/L (16-61); Albumin, Serum 2.9 g/dL (3.2-5.0); Alkaline Phosphatase 103 U/L (45-117); Anion Gap 5 (5-15); BUN 20 mg/dL (7-18); BUN/Creat Ratio 24.1 RATIO (10-20); Calcium,Total 8.7 mg/dL (8.5-10.1); Chloride 107 mmol/L (98-107); Creatinine, Serum 0.83 mg/dL (0.70-1.30); EST Glomerular Filtration Rate 97 mL/min (>60); Est Glom Filt Rate - Afr Amer 118 mL/min (>60); Glucose 95 mg/dL (74-106); Potassium 4.2 mmol/L (3.5-5.1); Protein, Total 6.9 g/dL (6.4-8.2); Sodium Level 138 mmol/L (136-145)
== END ==
LOC: OLS.SANC 05:00
PROVIDERS: Visit Provider Internal Medicine
DX: N39.0 Urinary tract infection, site not specified (principal)
CPT/HCPCS: 36415; 80053; 81001; 85027; 87086; 87088

== ENCOUNTER → 2022-12-07 | Outpatient (REF) | payer MEDICARE, MEDICAID, SELFPAY ==
[2022-12-13 09:11] LABS: INR Fingerstick 2.5; Prothrombin Time Fingerstick 26.9 SEC (11.7-14.9)
== END ==
LOC: OLS.SANC 05:00
PROVIDERS: Visit Provider Internal Medicine
DX: Z79.01 Long term (current) use of 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 (principal)
CPT/HCPCS: 36416; 85610

== ENCOUNTER → 2022-12-14 | Outpatient (REF) | payer MEDICARE, MEDICAID, SELFPAY ==
[2022-12-14 08:42] LABS: INR Fingerstick 2.3; Prothrombin Time Fingerstick 25.2 SEC (11.7-14.9)
== END ==
LOC: OLS.SANC 04:00
PROVIDERS: Referring Provider Internal Medicine; Visit Provider Internal Medicine
DX: Z79.01 Long term (current) use of 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 (principal)
CPT/HCPCS: 36416; 85610

== ENCOUNTER → 2022-12-21 | Outpatient (REF) | payer MEDICARE, MEDICAID, SELFPAY ==
[2022-12-21 09:10] LABS: International Normalized Ratio 2.4; Prothrombin Time (Protime)PT. 26.7 SECONDS (11.7-14.9)
== END ==
LOC: OLS.SANC 05:00
PROVIDERS: Visit Provider Internal Medicine
DX: Z79.899 Other long term (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 (principal); Z79.01 Long term (current) use of 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
CPT/HCPCS: 36415; 85610

== ENCOUNTER → 2022-12-27 | Outpatient (REF) | payer MEDICARE, MEDICAID, SELFPAY ==
[2022-12-27 09:20] LABS: International Normalized Ratio 2.1; Prothrombin Time (Protime)PT. 24.1 SECONDS (11.7-14.9)
== END ==
LOC: OLS.SANC 05:00
PROVIDERS: Visit Provider Internal Medicine
DX: Z79.01 Long term (current) use of 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 (principal)
CPT/HCPCS: 36415; 85610

== ENCOUNTER → 2023-01-10 | Outpatient (REF) | payer MEDICARE, MEDICAID, SELFPAY ==
[2023-01-10 09:14] LABS: Prothrombin Time (Protime)PT. 22.6 SECONDS (11.7-14.9)
== END ==
LOC: OLS.SANC 05:00
PROVIDERS: Visit Provider Internal Medicine
DX: Z79.899 Other long term (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 (principal); Z79.01 Long term (current) use of 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
CPT/HCPCS: 36415; 85610

== ENCOUNTER → 2023-01-22 | Outpatient (REF) | payer MEDICARE, MEDICAID, SELFPAY ==
[2023-01-22 08:18] LABS: Red Blood Cells-Urine 0 SEEN /hpf (0-5); Squamous Epithelial Cells - UA 0 SEEN /hpf (0-5); White Blood Cells 0 SEEN /hpf (0-5)
[2023-01-22 08:24] LABS: Color, Urine Yellow (Yellow); Glucose, Dipstick Normal (Normal); Ketone-Dipstick Negative (Negative); Leukocyte Esterase-Dipstick Negative /ul (Negative); Nitrite-Dipstick Negative (Negative); Occult Blood-Urine Negative /ul (Negative); Protein-Dipstick Negative (Negative); Specific Gravity, Urine 1.025 (1.002-1.030); Urine Bilirubin Dipstick Negative (Negative); Urine Clarity Sl. Cloudy (Clear); Urine Urobilinogen Normal (Normal)
[2023-01-22 08:32] LABS: Bacteria 2+ /hpf (None Seen); Calcium Oxalate Crystals Ur 1+ /hpf (<or=2+); Mucous, Urine 1+ /hpf (<or=2+)
== END ==
LOC: OLS.SANC 03:00
PROVIDERS: Visit Provider Internal Medicine
DX: N39.0 Urinary tract infection, site not specified (principal)
CPT/HCPCS: 81001; 87086; 87088

== ENCOUNTER → 2023-01-24 | Outpatient (REF) | payer MEDICARE, MEDICAID, SELFPAY ==
[2023-01-24 09:25] LABS: International Normalized Ratio 1.3; Prothrombin Time (Protime)PT. 16.2 SECONDS (11.7-14.9)
== END ==
LOC: OLS.SANC 06:30
PROVIDERS: Visit Provider Internal Medicine
DX: Z79.01 Long term (current) use of 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 (principal)
CPT/HCPCS: 36415; 85610

== ENCOUNTER → 2023-01-26 | Outpatient (REF) | payer MEDICARE, MEDICAID, SELFPAY ==
[2023-01-26 09:59] LABS: International Normalized Ratio 1.5; Prothrombin Time (Protime)PT. 18.3 SECONDS (11.7-14.9)
== END ==
LOC: OLS.SANC 08:30
PROVIDERS: Visit Provider Internal Medicine
DX: Z79.01 Long term (current) use of 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 (principal)
CPT/HCPCS: 36415; 85610

== ENCOUNTER → 2023-01-29 | Outpatient (REF) | payer MEDICARE, MEDICAID, SELFPAY ==
[2023-01-29 09:56] LABS: INR Fingerstick 1.8; Prothrombin Time Fingerstick 19.9 SEC (11.7-14.9)
== END ==
LOC: OLS.SANC 04:00
PROVIDERS: Referring Provider Internal Medicine; Visit Provider Internal Medicine
DX: Z86.711 Personal history of pulmonary embolism (principal)
CPT/HCPCS: 36416; 85610

== ENCOUNTER → 2023-01-31 | Outpatient (REF) | payer MEDICARE, MEDICAID, SELFPAY ==
[2023-01-31 08:54] LABS: Prothrombin Time (Protime)PT. 22.4 SECONDS (11.7-14.9)
== END ==
LOC: OLS.SANC 06:12
PROVIDERS: Visit Provider Internal Medicine
DX: Z79.01 Long term (current) use of 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 (principal)
CPT/HCPCS: 36415; 85610

== ENCOUNTER → 2023-02-08 | Outpatient (REF) | payer MEDICARE, MEDICAID, SELFPAY ==
[2023-02-08 08:56] LABS: International Normalized Ratio 2.1; Prothrombin Time (Protime)PT. 23.5 SECONDS (11.7-14.9)
== END ==
LOC: OLS.SANC 05:00
PROVIDERS: Visit Provider Internal Medicine
DX: Z79.01 Long term (current) use of 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 (principal)
CPT/HCPCS: 36415; 85610

== ENCOUNTER → 2023-02-15 | Outpatient (REF) | payer MEDICARE, MEDICAID, SELFPAY ==
[2023-02-15 09:10] LABS: Prothrombin Time (Protime)PT. 22.8 SECONDS (11.7-14.9)
== END ==
LOC: OLS.SANC 05:00
PROVIDERS: Visit Provider Family Medicine
DX: Z79.01 Long term (current) use of 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 (principal)
CPT/HCPCS: 36415; 85610

== ENCOUNTER → 2023-02-22 | Outpatient (REF) | payer MEDICARE, MEDICAID, SELFPAY ==
[2023-02-22 09:12] LABS: INR Fingerstick 2.2
== END ==
LOC: OLS.SANC 05:00
PROVIDERS: Visit Provider Internal Medicine
DX: Z79.01 Long term (current) use of 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 (principal)
CPT/HCPCS: 36416; 85610

== ENCOUNTER → 2023-03-08 | Outpatient (REF) | payer MEDICARE, MEDICAID, SELFPAY ==
[2023-03-08 10:03] LABS: Prothrombin Time (Protime)PT. 22.5 SECONDS (11.7-14.9)
== END ==
LOC: OLS.SANC 07:00
PROVIDERS: Visit Provider Internal Medicine
DX: Z79.01 Long term (current) use of 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 (principal)
CPT/HCPCS: 36415; 85610

== ENCOUNTER → 2023-03-22 | Outpatient (REF) | payer MEDICARE, MEDICAID, SELFPAY ==
[2023-03-22 09:11] LABS: International Normalized Ratio 1.3; Prothrombin Time (Protime)PT. 16.4 SECONDS (11.7-14.9)
== END ==
LOC: OLS.SANC 05:00
PROVIDERS: Visit Provider Internal Medicine
DX: Z79.01 Long term (current) use of 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 (principal)
CPT/HCPCS: 36415; 85610

== ENCOUNTER → 2023-03-26 | Outpatient (REF) | payer MEDICARE, MEDICAID, SELFPAY ==
[2023-03-26 08:14] LABS: International Normalized Ratio 1.7; Prothrombin Time (Protime)PT. 19.9 SECONDS (11.7-14.9)
== END ==
LOC: OLS.SANC 05:00
PROVIDERS: Visit Provider Internal Medicine
DX: Z79.01 Long term (current) use of 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 (principal)
CPT/HCPCS: 36415; 85610

== ENCOUNTER → 2023-04-02 | Outpatient (REF) | payer MEDICARE, MEDICAID, SELFPAY ==
[2023-04-02 09:12] LABS: International Normalized Ratio 2.2; Prothrombin Time (Protime)PT. 24.5 SECONDS (11.7-14.9)
== END ==
LOC: OLS.SANC 05:00
PROVIDERS: Visit Provider Internal Medicine
DX: Z79.01 Long term (current) use of 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 (principal)
CPT/HCPCS: 36415; 85610

== ENCOUNTER → 2023-04-09 | Outpatient (REF) | payer MEDICARE, MEDICAID, SELFPAY ==
[2023-04-09 09:25] LABS: International Normalized Ratio 2.1; Prothrombin Time (Protime)PT. 23.9 SECONDS (11.7-14.9)
== END ==
LOC: OLS.SANC 04:00
PROVIDERS: Referring Provider Internal Medicine; Visit Provider Internal Medicine
DX: Z86.711 Personal history of pulmonary embolism (principal)
CPT/HCPCS: 36415; 85610

== ENCOUNTER → 2023-04-23 | Outpatient (REF) | payer MEDICARE, MEDICAID, SELFPAY ==
[2023-04-23 09:04] LABS: International Normalized Ratio 2.4; Prothrombin Time (Protime)PT. 26.4 SECONDS (11.7-14.9)
== END ==
LOC: OLS.SANC 05:00
PROVIDERS: Visit Provider Internal Medicine
DX: D64.9 Anemia, unspecified (principal); Z86.711 Personal history of pulmonary embolism
CPT/HCPCS: 36415; 85610

== ENCOUNTER → 2023-05-09 | Outpatient (REF) | payer MEDICARE, MEDICAID, SELFPAY ==
[2023-05-09 10:04] LABS: International Normalized Ratio 2.1; Prothrombin Time (Protime)PT. 24.1 SECONDS (11.7-14.9)
== END ==
LOC: OLS.SANC 04:00
PROVIDERS: PCP General Practice; Referring Provider Internal Medicine; Visit Provider Internal Medicine
DX: Z79.01 Long term (current) use of 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 (principal)
CPT/HCPCS: 36415; 85610

== ENCOUNTER → 2023-05-23 | Outpatient (REF) | payer MEDICARE, MEDICAID, SELFPAY ==
[2023-05-23 10:48] LABS: International Normalized Ratio 2.6; Prothrombin Time (Protime)PT. 27.7 SECONDS (11.7-14.9)
== END ==
LOC: OLS.SANC 05:00
PROVIDERS: PCP General Practice; Visit Provider Internal Medicine
DX: Z79.01 Long term (current) use of 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 (principal)
CPT/HCPCS: 36415; 85610

== ENCOUNTER → 2023-06-06 | Outpatient (REF) | payer MEDICARE, MEDICAID, SELFPAY ==
[2023-06-06 08:21] LABS: International Normalized Ratio 2.9; Prothrombin Time (Protime)PT. 30.5 SECONDS (11.7-14.9)
== END ==
LOC: OLS.SANC 04:00
PROVIDERS: PCP General Practice; Referring Provider Internal Medicine; Visit Provider Internal Medicine
DX: D64.9 Anemia, unspecified (principal); I10 Essential (primary) hypertension; Z79.01 Long term (current) use of 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
CPT/HCPCS: 36415; 85610

== ENCOUNTER → 2023-06-13 | Outpatient (REF) | payer MEDICARE, MEDICAID, SELFPAY ==
[2023-06-13 11:13] LABS: Valproic Acid (Depakene) Level < 3 ug/mL (50-100)
== END ==
LOC: OLS.SANC 05:00
PROVIDERS: PCP General Practice; Visit Provider Internal Medicine
DX: Z79.899 Other long term (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 (principal)
CPT/HCPCS: 36415; 80164

== ENCOUNTER → 2023-06-21 | Outpatient (REF) | payer MEDICARE, MEDICAID, SELFPAY ==
[2023-06-21 09:00] LABS: International Normalized Ratio 3.2; Prothrombin Time (Protime)PT. 32.9 SECONDS (11.7-14.9)
== END ==
LOC: OLS.SANC 05:00
PROVIDERS: PCP General Practice; Visit Provider Internal Medicine
DX: Z79.01 Long term (current) use of 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 (principal)
CPT/HCPCS: 36415; 85610

== ENCOUNTER → 2023-06-25 | Outpatient (REF) | payer MEDICARE, MEDICAID, SELFPAY ==
[2023-06-25 10:24] LABS: International Normalized Ratio 3.8; Prothrombin Time (Protime)PT. 38.2 SECONDS (11.7-14.9)
== END ==
LOC: OLS.SANC 04:00
PROVIDERS: PCP General Practice; Referring Provider Internal Medicine; Visit Provider Internal Medicine
DX: Z79.01 Long term (current) use of 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 (principal)
CPT/HCPCS: 36415; 85610

== ENCOUNTER → 2023-06-28 | Outpatient (REF) | payer MEDICARE, MEDICAID, SELFPAY ==
[2023-06-28 10:01] LABS: International Normalized Ratio 1.7; Prothrombin Time (Protime)PT. 20.5 SECONDS (11.7-14.9)
== END ==
LOC: OLS.SANC 05:00
PROVIDERS: PCP General Practice; Visit Provider Internal Medicine
DX: Z79.01 Long term (current) use of 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 (principal); Z79.899 Other long term (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
CPT/HCPCS: 36415; 85610

== ENCOUNTER → 2023-07-02 05:00 | Outpatient (REF) | payer MEDICARE, MEDICAID, SELFPAY ==
[2023-07-02 09:24] LABS: International Normalized Ratio 1.5; Prothrombin Time (Protime)PT. 18.5 SECONDS (11.7-14.9)
== END ==
LOC: OLS.SANC 05:00
PROVIDERS: PCP General Practice; Visit Provider Internal Medicine
DX: D64.9 Anemia, unspecified (principal); Z79.899 Other long term (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; Z79.01 Long term (current) use of 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
CPT/HCPCS: 36415; 85610

== ENCOUNTER → 2023-07-05 | Outpatient (REF) | payer MEDICARE, MEDICAID, SELFPAY ==
[2023-07-05 10:10] LABS: International Normalized Ratio 2.4; Prothrombin Time (Protime)PT. 26.3 SECONDS (11.7-14.9)
== END ==
LOC: OLS.SANC 06:54
PROVIDERS: PCP General Practice; Visit Provider Internal Medicine
DX: Z79.01 Long term (current) use of 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 (principal)
CPT/HCPCS: 36415; 85610

== ENCOUNTER → 2023-07-12 | Outpatient (REF) | payer MEDICARE, MEDICAID, SELFPAY ==
[2023-07-12 09:14] LABS: Valproic Acid (Depakene) Level < 3 ug/mL (50-100)
== END ==
LOC: OLS.SANC 05:00
PROVIDERS: PCP General Practice; Visit Provider Internal Medicine
DX: F03.90 Unspecified dementia, unspecified severity, without behavioral disturbance, psychotic disturbance, mood disturbance, and anxiety (principal)
CPT/HCPCS: 36415; 80164

== ENCOUNTER → 2023-07-13 | Outpatient (REF) | payer MEDICARE, MEDICAID, SELFPAY ==
[2023-07-13 09:27] LABS: Absolute Lymphocyte Count 5.44 X10^3/uL (0.83-4.51); Absolute Neutrophil Count 5.3 X10^3/uL (2.0-7.7); Basophil# 0.05 X10^3/uL; Basophil% 0.4 % (0-1); Eosinophils% 1.7 % (0-5); Hematocrit 42.2 % (40-54); Hemoglobin 13.5 g/dL (13.0-16.5); Lymphocyte # 5.44 X10^3/ul (0.83-4.51); Lymphocyte % 47.3 % (19-41); Mean Corpuscular Hgb 27.6 pg (27.0-32.0); Mean Corpuscular Volume 86.1 fL (80-94); Mean Platelet Vol. 10.1 fl (6.2-12.0); Monocyte% 4.3 % (0-10); NRBC Flagged by Analyzer 0 % (0-5); Neutrophil # 5.28 X10^3/uL (2.7-7.7); POSITIVE DIFFERENTIAL YES; Platelet Count 279 K/mm3 (150-450); RBC Distribution Width CV 15.2 % (11.6-14.6); White Blood Count 11.5 K/mm3 (4.4-11.0)
[2023-07-13 09:30] LABS: Differential Indicated SCAN CRITERIA MET
[2023-07-13 09:42] LABS: Anion Gap 6 (5-15); BUN 18 mg/dL (7-18); BUN/Creat Ratio 21.8 RATIO (10-20); Calcium,Total 9.1 mg/dL (8.5-10.1); Chloride 107 mmol/L (98-107); Creatinine, Serum 0.82 mg/dL (0.70-1.30); EST Glomerular Filtration Rate 98 mL/min (>60); Est Glom Filt Rate - Afr Amer 118 mL/min (>60); Glucose 96 mg/dL (74-106); Sodium Level 139 mmol/L (136-145)
[2023-07-16 14:08] LABS: KEPPRA (LEVETIRACETAM) 25.5 ug/mL (10.0-40.0)
== END ==
LOC: OLS.SANC 05:00
PROVIDERS: PCP General Practice; Visit Provider Internal Medicine
DX: D64.9 Anemia, unspecified (principal); I10 Essential (primary) hypertension; Z79.899 Other long term (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
CPT/HCPCS: 36415; 80048; 80177; 85025

== ENCOUNTER → 2023-07-16 | Outpatient (REF) | payer MEDICARE, MEDICAID, SELFPAY ==
[2023-07-16 09:20] LABS: International Normalized Ratio 2.4; Prothrombin Time (Protime)PT. 25.7 SECONDS (11.7-14.9)
[2023-07-16 09:24] LABS: Absolute Lymphocyte Count 6.02 X10^3/uL (0.83-4.51); Absolute Neutrophil Count 5.2 X10^3/uL (2.0-7.7); Basophil# 0.07 X10^3/uL; Basophil% 0.6 % (0-1); Eosinophil# 0.25 X10^3/uL; Hematocrit 38.7 % (40-54); Hemoglobin 12.1 g/dL (13.0-16.5); Lymphocyte # 6.02 X10^3/ul (0.83-4.51); Lymphocyte % 49.1 % (19-41); Mean Corp Hgb Conc 31.3 g/dL (32-36); Mean Corpuscular Hgb 27.1 pg (27.0-32.0); Mean Corpuscular Volume 86.8 fL (80-94); Mean Platelet Vol. 10.5 fl (6.2-12.0); Monocyte# 0.65 X10^3/uL; Monocyte% 5.3 % (0-10); NRBC Flagged by Analyzer 0 % (0-5); Neutrophil # 5.24 X10^3/uL (2.7-7.7); Neutrophil % 42.8 % (47-70); POSITIVE DIFFERENTIAL YES; POSITIVE MORPHOLOGY YES; Platelet Count 289 K/mm3 (150-450); RBC Distribution Width CV 15.3 % (11.6-14.6); RBC Distribution Width SD 48.9 fl (35.1-43.9); Red Blood Count 4.46 M/mm3 (4.6-6.2); White Blood Count 12.3 K/mm3 (4.4-11.0)
[2023-07-16 09:40] LABS: Differential Indicated SCAN CRITERIA MET
[2023-07-16 10:22] LABS: Anion Gap 8 (5-15); BUN 19 mg/dL (7-18); Chloride 105 mmol/L (98-107); EST Glomerular Filtration Rate 88 mL/min (>60); Est Glom Filt Rate - Afr Amer 106 mL/min (>60); Glucose 93 mg/dL (74-106); Potassium 4.3 mmol/L (3.5-5.1); Sodium Level 138 mmol/L (136-145)
[2023-07-16 10:31] LABS: Differential Comment SCANNED; Reactive Lymphocyte 1+
[2023-07-17 09:22] LABS: Color, Urine Yellow (Yellow); Glucose, Dipstick Normal (Normal); Ketone-Dipstick Negative (Negative); Leukocyte Esterase-Dipstick 25 /ul (Negative); Nitrite-Dipstick Negative (Negative); Occult Blood-Urine Negative /ul (Negative); Protein-Dipstick Negative (Negative); Urine Bilirubin Dipstick Negative (Negative); Urine Clarity Clear (Clear); Urine Urobilinogen Normal (Normal)
[2023-07-17 09:33] LABS: Bacteria 0 SEEN /hpf (None Seen); Mucous, Urine 0 SEEN /hpf (<or=2+); Red Blood Cells-Urine 0 SEEN /hpf (0-5)
[2023-07-17 09:34] LABS: Calcium Oxalate Crystals Ur 1+ /hpf (<or=2+); Squamous Epithelial Cells - UA 0-5 SEEN /hpf (0-5); White Blood Cells 0-5 SEEN /hpf (0-5)
== END ==
LOC: OLS.SANC 05:00
PROVIDERS: PCP General Practice; Visit Provider Internal Medicine
DX: R33.9 Retention of urine, unspecified (principal); I11.0 Hypertensive heart disease with heart failure; I50.9 Heart failure, unspecified; D64.9 Anemia, unspecified; Z79.899 Other long term (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; Z79.01 Long term (current) use of 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
CPT/HCPCS: 36415; 80048; 80177; 81001; 85025; 85610; 87086; 87088

== ENCOUNTER → 2023-07-18 | Outpatient (REF) | payer MEDICARE, MEDICAID, SELFPAY ==
[2023-07-18 07:47] LABS: Hematocrit 39.3 % (40-54); Hemoglobin 12.3 g/dL (13.0-16.5); Mean Corp Hgb Conc 31.3 g/dL (32-36); Mean Corpuscular Hgb 26.7 pg (27.0-32.0); Mean Corpuscular Volume 85.4 fL (80-94); Mean Platelet Vol. 10.3 fl (6.2-12.0); Platelet Count 288 K/mm3 (150-450); RBC Distribution Width CV 15.1 % (11.6-14.6); RBC Distribution Width SD 47.3 fl (35.1-43.9); White Blood Count 14.7 K/mm3 (4.4-11.0)
[2023-07-18 08:01] LABS: Anion Gap 7 (5-15); BUN 21 mg/dL (7-18); BUN/Creat Ratio 24.4 RATIO (10-20); Calcium,Total 8.9 mg/dL (8.5-10.1); Chloride 102 mmol/L (98-107); Creatinine, Serum 0.86 mg/dL (0.70-1.30); EST Glomerular Filtration Rate 93 mL/min (>60); Est Glom Filt Rate - Afr Amer 113 mL/min (>60); Glucose 96 mg/dL (74-106); Potassium 4.2 mmol/L (3.5-5.1); Sodium Level 136 mmol/L (136-145)
== END ==
LOC: OLS.SANC 05:00
PROVIDERS: PCP General Practice; Visit Provider Internal Medicine
DX: D64.9 Anemia, unspecified (principal); I10 Essential (primary) hypertension
CPT/HCPCS: 36415; 80048; 85027

== ENCOUNTER → 2023-07-20 | Outpatient (REF) | payer MEDICARE, MEDICAID, SELFPAY ==
[2023-07-20 08:42] LABS: Hematocrit 39.9 % (40-54); Hemoglobin 12.5 g/dL (13.0-16.5); Mean Corp Hgb Conc 31.3 g/dL (32-36); Mean Corpuscular Volume 86.2 fL (80-94); Mean Platelet Vol. 10.7 fl (6.2-12.0); Platelet Count 260 K/mm3 (150-450); RBC Distribution Width CV 15.3 % (11.6-14.6); RBC Distribution Width SD 48.1 fl (35.1-43.9); Red Blood Count 4.63 M/mm3 (4.6-6.2)
[2023-07-20 08:52] LABS: Anion Gap 5 (5-15); BUN 21 mg/dL (7-18); BUN/Creat Ratio 24.6 RATIO (10-20); Calcium,Total 8.6 mg/dL (8.5-10.1); Chloride 106 mmol/L (98-107); Creatinine, Serum 0.85 mg/dL (0.70-1.30); EST Glomerular Filtration Rate 94 mL/min (>60); Est Glom Filt Rate - Afr Amer 114 mL/min (>60); Glucose 98 mg/dL (74-106); Potassium 4.3 mmol/L (3.5-5.1); Sodium Level 135 mmol/L (136-145)
== END ==
LOC: OLS.SANC 05:00
PROVIDERS: PCP General Practice; Visit Provider Internal Medicine
DX: D64.9 Anemia, unspecified (principal); I10 Essential (primary) hypertension
CPT/HCPCS: 36415; 80048; 85027

== ENCOUNTER → 2023-08-03 | Outpatient (REF) | payer MEDICARE, MEDICAID, SELFPAY ==
[2023-08-06 09:07] LABS: KEPPRA (LEVETIRACETAM) 32.4 ug/mL (10.0-40.0)
== END ==
LOC: OLS.SANC 05:00
PROVIDERS: PCP General Practice; Visit Provider Internal Medicine
DX: D64.9 Anemia, unspecified (principal); I11.0 Hypertensive heart disease with heart failure; I50.9 Heart failure, unspecified; R33.9 Retention of urine, unspecified; Z79.899 Other long term (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
CPT/HCPCS: 80177

== ENCOUNTER → 2023-08-21 05:00 | Outpatient (REF) | payer MEDICARE, MEDICAID, SELFPAY ==
[2023-08-21 08:53] LABS: International Normalized Ratio 2.7; Prothrombin Time (Protime)PT. 28.9 SECONDS (11.7-14.9)
== END ==
LOC: OLS.SANC 05:00
PROVIDERS: PCP General Practice; Visit Provider Internal Medicine
DX: D64.9 Anemia, unspecified (principal); I50.9 Heart failure, unspecified; Z79.899 Other long term (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
CPT/HCPCS: 36415; 85610

== ENCOUNTER → 2023-08-22 | Outpatient (REF) | payer MEDICARE, MEDICAID, SELFPAY ==
[2023-08-22 09:30] LABS: Anion Gap 3 (5-15); BUN 17 mg/dL (7-18); BUN/Creat Ratio 20.4 RATIO (10-20); Calcium,Total 8.5 mg/dL (8.5-10.1); Chloride 107 mmol/L (98-107); Creatinine, Serum 0.84 mg/dL (0.70-1.30); EST Glomerular Filtration Rate 96 mL/min (>60); Est Glom Filt Rate - Afr Amer 117 mL/min (>60); Glucose 96 mg/dL (74-106); PSA,Total - Annual Screen 0.84 ng/mL (0.00-4.00); Potassium 4.2 mmol/L (3.5-5.1); Sodium Level 138 mmol/L (136-145)
== END ==
LOC: OLS.SANC 05:00
PROVIDERS: PCP General Practice; Visit Provider Internal Medicine
DX: I10 Essential (primary) hypertension (principal); Z12.5 Encounter for screening for malignant neoplasm of prostate
CPT/HCPCS: 36415; 80048; 84153; G0103

== ENCOUNTER → 2023-09-04 05:00 | Outpatient (REF) | payer MEDICARE, MEDICAID, SELFPAY ==
[2023-09-04 08:17] LABS: INR Fingerstick 2.4
== END ==
LOC: OLS.SANC 05:00
PROVIDERS: PCP General Practice; Visit Provider Internal Medicine
DX: D64.9 Anemia, unspecified (principal); I50.9 Heart failure, unspecified
CPT/HCPCS: 36416; 85610

== ENCOUNTER → 2023-09-07 05:00 | Outpatient (REF) | payer MEDICARE, MEDICAID, SELFPAY ==
[2023-09-07 07:37] LABS: Bacteria 0 SEEN /hpf (None Seen); Mucous, Urine 0 SEEN /hpf (<or=2+); Red Blood Cells-Urine 0 SEEN /hpf (0-5); Squamous Epithelial Cells - UA 0 SEEN /hpf (0-5)
[2023-09-07 07:40] LABS: Color, Urine Yellow (Yellow); Glucose, Dipstick Normal (Normal); Ketone-Dipstick 5 mg/dl (Negative); Leukocyte Esterase-Dipstick 25 /ul (Negative); Nitrite-Dipstick Negative (Negative); Occult Blood-Urine Negative /ul (Negative); Protein-Dipstick 15 mg/dl (Negative); Specific Gravity, Urine 1.025 (1.002-1.030); Urine Bilirubin Dipstick Negative (Negative); Urine Clarity Clear (Clear); Urine Urobilinogen Normal (Normal)
[2023-09-07 07:46] LABS: White Blood Cells 0-5 SEEN /hpf (0-5)
== END ==
LOC: OLS.SANC 05:00
PROVIDERS: PCP General Practice; Visit Provider Internal Medicine
DX: N39.0 Urinary tract infection, site not specified (principal)
CPT/HCPCS: 81001

== ENCOUNTER → 2023-09-18 | Outpatient (REF) | payer MEDICARE, MEDICAID, SELFPAY ==
[2023-09-18 09:56] LABS: International Normalized Ratio 3.1
== END ==
LOC: OLS.SANC 07:50
PROVIDERS: PCP General Practice; Visit Provider Internal Medicine
DX: D64.9 Anemia, unspecified (principal); I50.9 Heart failure, unspecified; Z79.899 Other long term (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; Z79.01 Long term (current) use of 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
CPT/HCPCS: 36415; 85610

== ENCOUNTER → 2023-09-25 | Outpatient (REF) | payer MEDICARE, MEDICAID, SELFPAY ==
[2023-09-25 07:49] LABS: International Normalized Ratio 2.9; Prothrombin Time (Protime)PT. 30.1 SECONDS (11.7-14.9)
== END ==
LOC: OLS.SANC 05:00
PROVIDERS: PCP General Practice; Visit Provider Internal Medicine
DX: I10 Essential (primary) hypertension (principal); Z79.899 Other long term (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
CPT/HCPCS: 36415; 85610

== ENCOUNTER → 2023-10-09 05:00 | Outpatient (REF) | payer MEDICARE, MEDICAID, SELFPAY ==
[2023-10-09 09:28] LABS: International Normalized Ratio 3.3; Prothrombin Time (Protime)PT. 33.3 SECONDS (11.7-14.9)
== END ==
LOC: OLS.SANC 05:00
PROVIDERS: PCP General Practice; Visit Provider Internal Medicine
DX: Z79.01 Long term (current) use of 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 (principal)
CPT/HCPCS: 36415; 85610

== ENCOUNTER → 2023-10-12 05:00 | Outpatient (REF) | payer MEDICARE, MEDICAID, SELFPAY ==
[2023-10-12 08:53] LABS: International Normalized Ratio 3.2; Prothrombin Time (Protime)PT. 32.3 SECONDS (11.7-14.9)
== END ==
LOC: OLS.SANC 05:00
PROVIDERS: PCP General Practice; Visit Provider Internal Medicine
DX: Z79.01 Long term (current) use of 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 (principal)
CPT/HCPCS: 36415; 85610

== ENCOUNTER → 2023-10-18 08:15 | Outpatient (REF) | payer MEDICARE, MEDICAID, SELFPAY ==
[2023-10-18 10:26] LABS: International Normalized Ratio 3.8; Prothrombin Time (Protime)PT. 36.8 SECONDS (11.7-14.9)
== END ==
LOC: OLS.SANC 08:15
PROVIDERS: PCP General Practice; Visit Provider Internal Medicine
DX: Z79.01 Long term (current) use of 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 (principal)
CPT/HCPCS: 36415; 85610

== ENCOUNTER → 2023-10-25 05:00 | Outpatient (REF) | payer MEDICARE, MEDICAID, SELFPAY ==
[2023-10-25 08:36] LABS: International Normalized Ratio 2.5; Prothrombin Time (Protime)PT. 26.8 SECONDS (11.7-14.9)
== END ==
LOC: OLS.SANC 05:00
PROVIDERS: PCP General Practice; Visit Provider Internal Medicine
DX: Z79.01 Long term (current) use of 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 (principal)
CPT/HCPCS: 36415; 85610

== ENCOUNTER → 2023-11-09 05:00 | Outpatient (REF) | payer MEDICARE, MEDICAID, SELFPAY ==
[2023-11-09 08:54] LABS: International Normalized Ratio 1.7; Prothrombin Time (Protime)PT. 20.3 SECONDS (11.7-14.9)
== END ==
LOC: OLS.SANC 05:00
PROVIDERS: PCP General Practice; Referring Provider Internal Medicine; Visit Provider Internal Medicine
DX: Z79.899 Other long term (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 (principal); Z79.01 Long term (current) use of 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
CPT/HCPCS: 36415; 85610

== ENCOUNTER → 2023-11-12 05:00 | Outpatient (REF) | payer MEDICARE, MEDICAID, SELFPAY ==
[2023-11-12 09:26] LABS: International Normalized Ratio 1.6; Prothrombin Time (Protime)PT. 18.9 SECONDS (11.7-14.9)
== END ==
LOC: OLS.SANC 05:00
PROVIDERS: PCP General Practice; Referring Provider Internal Medicine; Visit Provider Internal Medicine
DX: J44.9 Chronic obstructive pulmonary disease, unspecified (principal); Z79.899 Other long term (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
CPT/HCPCS: 36415; 85610

== ENCOUNTER → 2023-11-19 | Outpatient (REF) | payer MEDICARE, MEDICAID, SELFPAY ==
[2023-11-19 10:28] LABS: International Normalized Ratio 1.9; Prothrombin Time (Protime)PT. 21.8 SECONDS (11.7-14.9)
== END ==
LOC: OLS.SANC 05:00
PROVIDERS: PCP General Practice; Visit Provider Internal Medicine
DX: I50.9 Heart failure, unspecified (principal); Z86.711 Personal history of pulmonary embolism
CPT/HCPCS: 36415; 85610

== ENCOUNTER → 2023-11-21 | Outpatient (REF) | payer MEDICAID, SELFPAY ==
[2023-11-21 08:30] LABS: Mean Corp Hgb Conc 31.6 g/dL (32-36); Mean Corpuscular Hgb 27.5 pg (27.0-32.0); Mean Platelet Vol. 10.3 fl (6.2-12.0); Platelet Count 282 K/mm3 (150-450); RBC Distribution Width CV 14.9 % (11.6-14.6); RBC Distribution Width SD 47.6 fl (35.1-43.9); Red Blood Count 4.37 M/mm3 (4.6-6.2); White Blood Count 13.3 K/mm3 (4.4-11.0)
[2023-11-21 08:43] LABS: Anion Gap 5 (5-15); BUN 21 mg/dL (7-18); BUN/Creat Ratio 23.6 RATIO (10-20); Calcium,Total 8.7 mg/dL (8.5-10.1); Chloride 106 mmol/L (98-107); Creatinine, Serum 0.89 mg/dL (0.70-1.30); EST Glomerular Filtration Rate 90 mL/min (>60); Est Glom Filt Rate - Afr Amer 108 mL/min (>60); Glucose 98 mg/dL (74-106); Potassium 4.2 mmol/L (3.5-5.1); Sodium Level 137 mmol/L (136-145)
== END | disposition home or self-care (01) ==
LOC: OLS.SANC 05:00
PROVIDERS: PCP General Practice; Visit Provider Internal Medicine
DX: G93.40 Encephalopathy, unspecified (principal); E87.6 Hypokalemia; D63.8 Anemia in other chronic diseases classified elsewhere
CPT/HCPCS: 36415; 80048; 85027

== ENCOUNTER → 2023-11-21 | Outpatient (REF) | payer MEDICAID, SELFPAY ==
[2023-11-22 08:09] LABS: Color, Urine Yellow (Yellow); Glucose, Dipstick Normal (Normal); Ketone-Dipstick Negative (Negative); Leukocyte Esterase-Dipstick Negative /ul (Negative); Nitrite-Dipstick Negative (Negative); Occult Blood-Urine Negative /ul (Negative); Protein-Dipstick Negative (Negative); Specific Gravity, Urine 1.015 (1.002-1.030); Urine Bilirubin Dipstick Negative (Negative); Urine Clarity Clear (Clear); Urine Urobilinogen Normal (Normal)
== END | disposition home or self-care (01) ==
LOC: OLS.SANC 18:00
PROVIDERS: PCP General Practice; Referring Provider Internal Medicine; Visit Provider Internal Medicine
DX: D64.9 Anemia, unspecified (principal); Z79.01 Long term (current) use of 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
CPT/HCPCS: 81002; 87086

== ENCOUNTER → 2023-11-23 | Outpatient (REF) | payer MEDICARE, MEDICAID, SELFPAY ==
[2023-11-23 07:37] LABS: Hematocrit 40.1 % (40-54); Hemoglobin 12.4 g/dL (13.0-16.5); Mean Corp Hgb Conc 30.9 g/dL (32-36); Mean Corpuscular Volume 87.4 fL (80-94); Mean Platelet Vol. 10.4 fl (6.2-12.0); Platelet Count 278 K/mm3 (150-450); RBC Distribution Width CV 14.8 % (11.6-14.6); RBC Distribution Width SD 47.6 fl (35.1-43.9); Red Blood Count 4.59 M/mm3 (4.6-6.2); White Blood Count 11.9 K/mm3 (4.4-11.0)
[2023-11-23 08:03] LABS: ALB/GLOB Ratio 0.8 RATIO (0.9-2.4); AST(SGOT) 10 U/L (15-37); Alanine Aminotransfer ALT/SGPT 13 U/L (16-61); Albumin, Serum 2.9 g/dL (3.2-5.0); Alkaline Phosphatase 100 U/L (45-117); Anion Gap 4 (5-15); BUN 17 mg/dL (7-18); BUN/Creat Ratio 22.8 RATIO (10-20); Calcium,Total 8.5 mg/dL (8.5-10.1); Chloride 106 mmol/L (98-107); Creatinine, Serum 0.74 mg/dL (0.70-1.30); EST Glomerular Filtration Rate 110 mL/min (>60); Est Glom Filt Rate - Afr Amer 133 mL/min (>60); Globulin 3.8 g/dL (2.2-4.2); Glucose 87 mg/dL (74-106); Potassium 4.2 mmol/L (3.5-5.1); Protein, Total 6.7 g/dL (6.4-8.2); Sodium Level 139 mmol/L (136-145)
== END ==
LOC: OLS.SANC 05:00
PROVIDERS: PCP General Practice; Visit Provider Internal Medicine
DX: F03.90 Unspecified dementia, unspecified severity, without behavioral disturbance, psychotic disturbance, mood disturbance, and anxiety (principal); Z79.01 Long term (current) use of 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
CPT/HCPCS: 36415; 80053; 85027

== ENCOUNTER → 2023-11-26 | Outpatient (REF) | payer MEDICAID, SELFPAY ==
[2023-11-26 09:22] LABS: International Normalized Ratio 1.7; Prothrombin Time (Protime)PT. 19.5 SECONDS (11.7-14.9)
== END | disposition home or self-care (01) ==
LOC: OLS.SANC 05:00
PROVIDERS: PCP General Practice; Visit Provider Internal Medicine
DX: Z79.899 Other long term (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 (principal); Z79.01 Long term (current) use of 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
CPT/HCPCS: 36415; 85610

== ENCOUNTER → 2023-11-27 | Outpatient (REF) | payer MEDICARE, MEDICAID, SELFPAY ==
[2023-11-27 09:53] LABS: Hematocrit 42.7 % (40-54); Mean Corp Hgb Conc 30.4 g/dL (32-36); Mean Corpuscular Hgb 26.9 pg (27.0-32.0); Mean Corpuscular Volume 88.4 fL (80-94); Mean Platelet Vol. 10.2 fl (6.2-12.0); Platelet Count 328 K/mm3 (150-450); RBC Distribution Width SD 48.8 fl (35.1-43.9); Red Blood Count 4.83 M/mm3 (4.6-6.2); White Blood Count 12.6 K/mm3 (4.4-11.0)
[2023-11-27 10:02] LABS: Anion Gap 5 (5-15); BUN 18 mg/dL (7-18); BUN/Creat Ratio 21.2 RATIO (10-20); Calcium,Total 8.9 mg/dL (8.5-10.1); Chloride 105 mmol/L (98-107); Creatinine, Serum 0.85 mg/dL (0.70-1.30); EST Glomerular Filtration Rate 94 mL/min (>60); Est Glom Filt Rate - Afr Amer 114 mL/min (>60); Glucose 91 mg/dL (74-106); Potassium 4.3 mmol/L (3.5-5.1); Sodium Level 140 mmol/L (136-145)
== END ==
LOC: OLS.SANC 05:00
PROVIDERS: PCP General Practice; Referring Provider Internal Medicine; Visit Provider Internal Medicine
DX: D64.9 Anemia, unspecified (principal); I50.9 Heart failure, unspecified; Z86.711 Personal history of pulmonary embolism
CPT/HCPCS: 36415; 80048; 85027

== ENCOUNTER → 2023-11-30 | Outpatient (REF) | payer MEDICARE, MEDICAID, SELFPAY ==
[2023-11-30 07:58] LABS: Hematocrit 39.5 % (40-54); Hemoglobin 12.3 g/dL (13.0-16.5); Mean Corp Hgb Conc 31.1 g/dL (32-36); Mean Corpuscular Volume 86.6 fL (80-94); Mean Platelet Vol. 10.3 fl (6.2-12.0); Platelet Count 301 K/mm3 (150-450); RBC Distribution Width CV 15.2 % (11.6-14.6); RBC Distribution Width SD 48.2 fl (35.1-43.9); Red Blood Count 4.56 M/mm3 (4.6-6.2); White Blood Count 13.8 K/mm3 (4.4-11.0)
[2023-11-30 08:15] LABS: Anion Gap 6 (5-15); BUN 16 mg/dL (7-18); BUN/Creat Ratio 18.4 RATIO (10-20); Calcium,Total 8.7 mg/dL (8.5-10.1); Chloride 106 mmol/L (98-107); Creatinine, Serum 0.87 mg/dL (0.70-1.30); EST Glomerular Filtration Rate 92 mL/min (>60); Est Glom Filt Rate - Afr Amer 111 mL/min (>60); Glucose 96 mg/dL (74-106); Potassium 4.2 mmol/L (3.5-5.1); Sodium Level 138 mmol/L (136-145)
== END ==
LOC: OLS.SANC 05:00
PROVIDERS: PCP General Practice; Referring Provider Internal Medicine; Visit Provider Internal Medicine
DX: D64.9 Anemia, unspecified (principal); I50.9 Heart failure, unspecified; Z86.711 Personal history of pulmonary embolism
CPT/HCPCS: 36415; 80048; 85027

== ENCOUNTER → 2023-12-03 | Outpatient (REF) | payer MEDICAID, SELFPAY ==
[2023-12-03 09:08] LABS: International Normalized Ratio 2.2; Prothrombin Time (Protime)PT. 24.2 SECONDS (11.7-14.9)
== END | disposition home or self-care (01) ==
LOC: OLS.SANC 04:00
PROVIDERS: PCP General Practice; Visit Provider Internal Medicine
DX: R05.9 Cough, unspecified (principal); D64.9 Anemia, unspecified; I50.9 Heart failure, unspecified
CPT/HCPCS: 36415; 85610; 87634; 87635

== ENCOUNTER → 2023-12-04 | Outpatient (REF) | payer MEDICARE, MEDICAID, SELFPAY ==
[2023-12-04 07:50] LABS: Hematocrit 39.3 % (40-54); Hemoglobin 12.6 g/dL (13.0-16.5); Mean Corp Hgb Conc 32.1 g/dL (32-36); Mean Corpuscular Hgb 27.3 pg (27.0-32.0); Mean Corpuscular Volume 85.1 fL (80-94); Mean Platelet Vol. 9.8 fl (6.2-12.0); Platelet Count 298 K/mm3 (150-450); RBC Distribution Width CV 14.9 % (11.6-14.6); RBC Distribution Width SD 46.5 fl (35.1-43.9); Red Blood Count 4.62 M/mm3 (4.6-6.2); White Blood Count 10.3 K/mm3 (4.4-11.0)
[2023-12-04 08:01] LABS: Anion Gap 7 (5-15); BUN 24 mg/dL (7-18); BUN/Creat Ratio 26.8 RATIO (10-20); Calcium,Total 8.8 mg/dL (8.5-10.1); Chloride 105 mmol/L (98-107); EST Glomerular Filtration Rate 89 mL/min (>60); Est Glom Filt Rate - Afr Amer 107 mL/min (>60); Glucose 92 mg/dL (74-106); Sodium Level 139 mmol/L (136-145)
== END ==
LOC: OLS.SANC 05:00
PROVIDERS: PCP General Practice; Visit Provider Internal Medicine
DX: Z79.899 Other long term (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 (principal); Z79.01 Long term (current) use of 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
CPT/HCPCS: 36415; 80048; 85027

== ENCOUNTER → 2023-12-17 | Outpatient (REF) | payer MEDICAID, SELFPAY ==
[2023-12-17 09:30] LABS: International Normalized Ratio 2.6; Prothrombin Time (Protime)PT. 27.4 SECONDS (11.7-14.9)
== END | disposition home or self-care (01) ==
LOC: OLS.SANC 05:00
PROVIDERS: PCP General Practice; Visit Provider Internal Medicine
DX: D64.9 Anemia, unspecified (principal); I50.9 Heart failure, unspecified; Z86.711 Personal history of pulmonary embolism
CPT/HCPCS: 36415; 85610

== ENCOUNTER → 2023-12-24 | Outpatient (REF) | payer MEDICARE, MEDICAID, SELFPAY ==
[2023-12-24 08:48] LABS: International Normalized Ratio 3.2; Prothrombin Time (Protime)PT. 32.6 SECONDS (11.7-14.9)
== END ==
LOC: OLS.SANC 05:00
PROVIDERS: PCP General Practice; Visit Provider Internal Medicine
DX: Z79.01 Long term (current) use of 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 (principal)
CPT/HCPCS: 36415; 85610

== ENCOUNTER → 2023-12-27 | Outpatient (REF) | payer MEDICARE, MEDICAID, SELFPAY ==
[2023-12-27 08:21] LABS: International Normalized Ratio 2.1; Prothrombin Time (Protime)PT. 23.5 SECONDS (11.7-14.9)
== END ==
LOC: OLS.SANC 05:00
PROVIDERS: PCP General Practice; Visit Provider Internal Medicine
DX: D64.9 Anemia, unspecified (principal); I50.9 Heart failure, unspecified; Z79.01 Long term (current) use of 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
CPT/HCPCS: 36415; 85610

== ENCOUNTER → 2024-01-01 05:00 | Outpatient (REF) | payer MEDICARE, MEDICAID, SELFPAY ==
[2024-01-01 08:44] LABS: Hematocrit 38.4 % (40-54); Hemoglobin 12.2 g/dL (13.0-16.5); Mean Corp Hgb Conc 31.8 g/dL (32-36); Mean Corpuscular Hgb 27.1 pg (27.0-32.0); Mean Corpuscular Volume 85.3 fL (80-94); Mean Platelet Vol. 10.1 fl (6.2-12.0); Platelet Count 287 K/mm3 (150-450); RBC Distribution Width CV 14.9 % (11.6-14.6); RBC Distribution Width SD 46.5 fl (35.1-43.9); White Blood Count 14.8 K/mm3 (4.4-11.0)
[2024-01-01 08:55] LABS: International Normalized Ratio 2.5; Prothrombin Time (Protime)PT. 26.6 SECONDS (11.7-14.9)
[2024-01-01 12:18] LABS: Anion Gap 9 (5-15); BUN 21 mg/dL (7-18); Calcium,Total 9.1 mg/dL (8.5-10.1); Chloride 104 mmol/L (98-107); Creatinine, Serum 0.84 mg/dL (0.70-1.30); EST Glomerular Filtration Rate 95 mL/min (>60); Est Glom Filt Rate - Afr Amer 116 mL/min (>60); Glucose 92 mg/dL (74-106); Potassium 4.2 mmol/L (3.5-5.1); Sodium Level 137 mmol/L (136-145)
== END ==
LOC: OLS.SANC 05:00
PROVIDERS: PCP General Practice
DX: D64.9 Anemia, unspecified (principal); I10 Essential (primary) hypertension; E78.5 Hyperlipidemia, unspecified; F03.90 Unspecified dementia, unspecified severity, without behavioral disturbance, psychotic disturbance, mood disturbance, and anxiety; Z79.01 Long term (current) use of 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; G93.40 Encephalopathy, unspecified; E44.0 Moderate protein-calorie malnutrition; J96.10 Chronic respiratory failure, unspecified whether with hypoxia or hypercapnia; E87.6 Hypokalemia
CPT/HCPCS: 36415; 80048; 85027; 85610

== ENCOUNTER → 2024-01-02 | Outpatient (REF) | payer MEDICARE, MEDICAID, SELFPAY ==
[2024-01-02 08:54] LABS: Bacteria 0 SEEN /hpf (None Seen); Mucous, Urine 0 SEEN /hpf (<or=2+); Squamous Epithelial Cells - UA 0 SEEN /hpf (0-5); White Blood Cells 0 SEEN /hpf (0-5)
[2024-01-02 08:58] LABS: Color, Urine Yellow (Yellow); Glucose, Dipstick Normal (Normal); Ketone-Dipstick Negative (Negative); Leukocyte Esterase-Dipstick Negative /ul (Negative); Nitrite-Dipstick Negative (Negative); Occult Blood-Urine Negative /ul (Negative); Protein-Dipstick Negative (Negative); Urine Bilirubin Dipstick Negative (Negative); Urine Clarity Clear (Clear); Urine Urobilinogen Normal (Normal)
[2024-01-02 09:33] LABS: Red Blood Cells-Urine 0-5 SEEN /hpf (0-5)
[2024-01-02 10:04] LABS: Prothrombin Time (Protime)PT. 30.7 SECONDS (11.7-14.9)
== END ==
LOC: OLS.SANC 06:16
PROVIDERS: PCP General Practice; Visit Provider Internal Medicine
DX: R39.9 Unspecified symptoms and signs involving the genitourinary system (principal); Z79.01 Long term (current) use of 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
CPT/HCPCS: 36415; 81001; 85610; 87086

== ENCOUNTER → 2024-01-08 | Outpatient (REF) | payer MEDICARE, MEDICAID, SELFPAY ==
[2024-01-08 08:54] LABS: Hemoglobin 12.1 g/dL (13.0-16.5); Mean Corpuscular Hgb 27.1 pg (27.0-32.0); Mean Corpuscular Volume 87.2 fL (80-94); Mean Platelet Vol. 10.8 fl (6.2-12.0); Platelet Count 300 K/mm3 (150-450); RBC Distribution Width CV 15.2 % (11.6-14.6); RBC Distribution Width SD 48.7 fl (35.1-43.9); Red Blood Count 4.47 M/mm3 (4.6-6.2)
[2024-01-08 09:01] LABS: International Normalized Ratio 3.9; Prothrombin Time (Protime)PT. 37.8 SECONDS (11.7-14.9)
== END ==
LOC: OLS.SANC 05:00
PROVIDERS: PCP General Practice; Visit Provider Internal Medicine
DX: D64.9 Anemia, unspecified (principal); G93.40 Encephalopathy, unspecified; Z86.711 Personal history of pulmonary embolism
CPT/HCPCS: 36415; 85027; 85610

== ENCOUNTER → 2024-01-10 | Outpatient (REF) | payer MEDICARE, MEDICAID, SELFPAY ==
[2024-01-10 08:26] LABS: INR Fingerstick 3.5; Prothrombin Time Fingerstick 34.2 SEC (11.7-14.9)
== END ==
LOC: OLS.SANC 05:00
PROVIDERS: PCP General Practice
DX: D64.9 Anemia, unspecified (principal); I50.9 Heart failure, unspecified; Z98.2 Presence of cerebrospinal fluid drainage device; Z86.711 Personal history of pulmonary embolism
CPT/HCPCS: 36416; 85610

== ENCOUNTER → 2024-01-11 05:00 | Outpatient (REF) | payer MEDICARE, MEDICAID, SELFPAY ==
[2024-01-11 08:16] LABS: International Normalized Ratio 2.7; Prothrombin Time (Protime)PT. 28.3 SECONDS (11.7-14.9)
== END ==
LOC: OLS.SANC 05:00
PROVIDERS: PCP General Practice; Visit Provider Internal Medicine
DX: Z79.01 Long term (current) use of 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 (principal)
CPT/HCPCS: 36415; 85610

== ENCOUNTER → 2024-01-14 | Outpatient (REF) | payer MEDICARE, MEDICAID, SELFPAY ==
[2024-01-14 10:34] LABS: International Normalized Ratio 2.3; Prothrombin Time (Protime)PT. 25.2 SECONDS (11.7-14.9)
== END ==
LOC: OLS.SANC 05:00
PROVIDERS: PCP General Practice; Visit Provider Internal Medicine
DX: D64.9 Anemia, unspecified (principal); I50.9 Heart failure, unspecified; Z79.01 Long term (current) use of 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
CPT/HCPCS: 36415; 85610

== ENCOUNTER → 2024-01-21 | Outpatient (REF) | payer MEDICARE, MEDICAID, SELFPAY ==
[2024-01-21 08:58] LABS: International Normalized Ratio 2.9; Prothrombin Time (Protime)PT. 30.1 SECONDS (11.7-14.9)
[2024-01-23 16:10] LABS: KEPPRA (LEVETIRACETAM) 35.2 ug/mL (10.0-40.0)
== END ==
LOC: OLS.SANC 05:00
PROVIDERS: PCP General Practice; Visit Provider Internal Medicine
DX: Z79.899 Other long term (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 (principal); Z79.01 Long term (current) use of 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
CPT/HCPCS: 36415; 80177; 85610

== ENCOUNTER → 2024-01-29 | Outpatient (REF) | payer MEDICARE, MEDICAID, SELFPAY ==
[2024-01-29 10:04] LABS: INR Fingerstick 3.2; Prothrombin Time Fingerstick 31.8 SEC (11.7-14.9)
== END ==
LOC: OLS.SANC 05:00
PROVIDERS: PCP General Practice
DX: Z79.01 Long term (current) use of 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 (principal)
CPT/HCPCS: 36416; 85610

== ENCOUNTER → 2024-01-30 | Outpatient (REF) | payer MEDICARE, MEDICAID, SELFPAY ==
[2024-01-30 09:04] LABS: International Normalized Ratio 2.8; Prothrombin Time (Protime)PT. 28.9 SECONDS (11.7-14.9)
== END ==
LOC: OLS.SANC 06:05
PROVIDERS: PCP General Practice; Visit Provider Internal Medicine
DX: Z79.01 Long term (current) use of 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 (principal)
CPT/HCPCS: 36415; 85610

== ENCOUNTER → 2024-02-01 05:00 | Outpatient (REF) | payer MEDICARE, MEDICAID, SELFPAY ==
[2024-02-01 08:56] LABS: International Normalized Ratio 2.1
== END ==
LOC: OLS.SANC 05:00
PROVIDERS: PCP General Practice; Visit Provider Internal Medicine
DX: Z79.01 Long term (current) use of 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 (principal)
CPT/HCPCS: 36415; 85610

== ENCOUNTER → 2024-02-04 | Outpatient (REF) | payer MEDICARE, MEDICAID, SELFPAY ==
[2024-02-04 09:04] LABS: International Normalized Ratio 2.2; Prothrombin Time (Protime)PT. 24.1 SECONDS (11.7-14.9)
== END ==
LOC: OLS.SANC 05:00
PROVIDERS: PCP General Practice; Visit Provider Internal Medicine
DX: Z79.01 Long term (current) use of 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 (principal)
CPT/HCPCS: 36415; 85610

== ENCOUNTER → 2024-02-07 | Outpatient (REF) | payer MEDICARE, MEDICAID, SELFPAY ==
[2024-02-07 09:37] LABS: International Normalized Ratio 2.9; Prothrombin Time (Protime)PT. 29.9 SECONDS (11.7-14.9)
== END ==
LOC: OLS.SANC 05:00
PROVIDERS: PCP General Practice; Visit Provider Internal Medicine
DX: Z79.01 Long term (current) use of 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 (principal)
CPT/HCPCS: 36415; 85610

== ENCOUNTER → 2024-02-08 | Outpatient (REF) | payer MEDICARE, MEDICAID, SELFPAY ==
[2024-02-08 08:56] LABS: International Normalized Ratio 2.8; Prothrombin Time (Protime)PT. 29.4 SECONDS (11.7-14.9)
== END ==
LOC: OLS.SANC 05:00
PROVIDERS: PCP General Practice; Visit Provider Internal Medicine
DX: Z79.01 Long term (current) use of 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 (principal)
CPT/HCPCS: 36415; 85610

== ENCOUNTER → 2024-02-11 | Outpatient (REF) | payer MEDICARE, MEDICAID, SELFPAY ==
[2024-02-11 08:31] LABS: International Normalized Ratio 3.6; Prothrombin Time (Protime)PT. 35.3 SECONDS (11.7-14.9)
== END ==
LOC: OLS.SANC 05:00
PROVIDERS: PCP General Practice
DX: Z79.899 Other long term (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 (principal); Z86.711 Personal history of pulmonary embolism
CPT/HCPCS: 36415; 85610

== ENCOUNTER → 2024-02-12 | Outpatient (REF) | payer MEDICARE, MEDICAID, SELFPAY ==
[2024-02-12 09:16] LABS: International Normalized Ratio 2.9; Prothrombin Time (Protime)PT. 30.2 SECONDS (11.7-14.9)
== END ==
LOC: OLS.SANC 05:00
PROVIDERS: PCP General Practice; Visit Provider Internal Medicine
DX: Z79.01 Long term (current) use of 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 (principal)
CPT/HCPCS: 36415; 85610

== ENCOUNTER → 2024-02-14 | Outpatient (REF) | payer MEDICARE, MEDICAID, SELFPAY ==
[2024-02-14 08:32] LABS: International Normalized Ratio 2.5; Prothrombin Time (Protime)PT. 26.5 SECONDS (11.7-14.9)
== END ==
LOC: OLS.SANC 05:00
PROVIDERS: PCP General Practice
DX: Z79.01 Long term (current) use of 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 (principal)
CPT/HCPCS: 36415; 85610

== ENCOUNTER → 2024-02-18 | Outpatient (REF) | payer MEDICARE, MEDICAID, SELFPAY ==
[2024-02-18 09:15] LABS: International Normalized Ratio 1.9; Prothrombin Time (Protime)PT. 21.3 SECONDS (11.7-14.9)
== END ==
LOC: OLS.SANC 04:00
PROVIDERS: PCP General Practice
DX: Z79.01 Long term (current) use of 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 (principal)
CPT/HCPCS: 36415; 85610

== ENCOUNTER → 2024-02-21 | Outpatient (REF) | payer MEDICARE, MEDICAID, SELFPAY ==
[2024-02-21 09:07] LABS: International Normalized Ratio 2.3; Prothrombin Time (Protime)PT. 25.5 SECONDS (11.7-14.9)
== END ==
LOC: OLS.SANC 05:00
PROVIDERS: PCP General Practice
DX: D64.9 Anemia, unspecified (principal); Z86.711 Personal history of pulmonary embolism; Z79.899 Other long term (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
CPT/HCPCS: 36415; 85610

== ENCOUNTER → 2024-02-25 | Outpatient (REF) | payer MEDICARE, MEDICAID, SELFPAY ==
[2024-02-25 09:59] LABS: International Normalized Ratio 2.6; Prothrombin Time (Protime)PT. 27.5 SECONDS (11.7-14.9)
== END ==
LOC: OLS.SANC 05:00
PROVIDERS: PCP General Practice; Visit Provider Internal Medicine
DX: D64.9 Anemia, unspecified (principal); Z79.899 Other long term (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; Z79.01 Long term (current) use of 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
CPT/HCPCS: 36415; 85610

== ENCOUNTER → 2024-02-28 | Outpatient (REF) | payer MEDICARE, MEDICAID, SELFPAY ==
[2024-02-28 09:08] LABS: Prothrombin Time (Protime)PT. 30.6 SECONDS (11.7-14.9)
== END ==
LOC: OLS.SANC 05:00
PROVIDERS: PCP General Practice
DX: Z86.711 Personal history of pulmonary embolism (principal); Z79.899 Other long term (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
CPT/HCPCS: 36415; 85610

== ENCOUNTER → 2024-03-03 | Outpatient (REF) | payer MEDICARE, MEDICAID, SELFPAY ==
[2024-03-03 09:02] LABS: International Normalized Ratio 3.1; Prothrombin Time (Protime)PT. 31.8 SECONDS (11.7-14.9)
== END ==
LOC: OLS.SANC 05:00
PROVIDERS: PCP General Practice
DX: Z79.01 Long term (current) use of 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 (principal)
CPT/HCPCS: 36415; 85610

== ENCOUNTER → 2024-03-06 | Outpatient (REF) | payer MEDICARE, MEDICAID, SELFPAY ==
[2024-03-06 08:40] LABS: International Normalized Ratio 3.1; Prothrombin Time (Protime)PT. 31.4 SECONDS (11.7-14.9)
== END ==
LOC: OLS.SANC 05:00
PROVIDERS: PCP General Practice
DX: D64.9 Anemia, unspecified (principal); I50.9 Heart failure, unspecified; Z86.711 Personal history of pulmonary embolism; Z79.899 Other long term (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
CPT/HCPCS: 36415; 85610

== ENCOUNTER → 2024-03-10 | Outpatient (REF) | payer MEDICARE, MEDICAID, SELFPAY ==
[2024-03-10 08:58] LABS: International Normalized Ratio 2.6; Prothrombin Time (Protime)PT. 27.7 SECONDS (11.7-14.9)
== END ==
LOC: OLS.SANC 05:00
PROVIDERS: PCP General Practice
DX: Z79.01 Long term (current) use of 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 (principal)
CPT/HCPCS: 36415; 85610

== ENCOUNTER → 2024-03-13 | Outpatient (REF) | payer MEDICARE, MEDICAID, SELFPAY ==
[2024-03-13 08:22] LABS: International Normalized Ratio 3.2; Prothrombin Time (Protime)PT. 32.2 SECONDS (11.7-14.9)
== END ==
LOC: OLS.SANC 05:00
PROVIDERS: PCP General Practice
DX: Z79.01 Long term (current) use of 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 (principal)
CPT/HCPCS: 36415; 85610

== ENCOUNTER → 2024-03-14 | Outpatient (REF) | payer MEDICARE, MEDICAID, SELFPAY ==
[2024-03-14 08:36] LABS: International Normalized Ratio 3.5
== END ==
LOC: OLS.SANC 05:00
PROVIDERS: PCP General Practice; Visit Provider Internal Medicine
DX: Z79.01 Long term (current) use of 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 (principal)
CPT/HCPCS: 36415; 85610

== ENCOUNTER → 2024-03-17 | Outpatient (REF) | payer MEDICARE, MEDICAID, SELFPAY ==
[2024-03-17 09:04] LABS: International Normalized Ratio 3.6; Prothrombin Time (Protime)PT. 35.7 SECONDS (11.7-14.9)
== END ==
LOC: OLS.SANC 05:00
PROVIDERS: PCP General Practice
DX: Z79.01 Long term (current) use of 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 (principal)
CPT/HCPCS: 36415; 85610

== ENCOUNTER → 2024-03-18 | Outpatient (REF) | payer MEDICARE, MEDICAID, SELFPAY ==
[2024-03-18 09:34] LABS: International Normalized Ratio 3.2; Prothrombin Time (Protime)PT. 32.3 SECONDS (11.7-14.9)
== END ==
LOC: OLS.SANC 05:00
PROVIDERS: PCP General Practice
DX: D64.9 Anemia, unspecified (principal); Z79.899 Other long term (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; Z79.01 Long term (current) use of 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
CPT/HCPCS: 36415; 85610

== ENCOUNTER → 2024-03-19 | Outpatient (REF) | payer MEDICARE, MEDICAID, SELFPAY ==
[2024-03-19 08:53] LABS: International Normalized Ratio 2.4; Prothrombin Time (Protime)PT. 26.4 SECONDS (11.7-14.9)
== END ==
LOC: OLS.SANC 04:00
PROVIDERS: PCP General Practice
DX: Z79.899 Other long term (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 (principal); Z79.01 Long term (current) use of 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
CPT/HCPCS: 36415; 85610

== ENCOUNTER → 2024-03-20 | Outpatient (REF) | payer MEDICARE, MEDICAID, SELFPAY ==
[2024-03-20 08:48] LABS: International Normalized Ratio 1.8; Prothrombin Time (Protime)PT. 20.9 SECONDS (11.7-14.9)
== END ==
LOC: OLS.SANC 05:00
PROVIDERS: PCP General Practice
DX: D64.9 Anemia, unspecified (principal); Z79.01 Long term (current) use of 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
CPT/HCPCS: 36415; 85610

== ENCOUNTER → 2024-03-24 | Outpatient (REF) | payer MEDICARE, MEDICAID, SELFPAY ==
[2024-03-24 08:45] LABS: International Normalized Ratio 1.8; Prothrombin Time (Protime)PT. 20.7 SECONDS (11.7-14.9)
== END ==
LOC: OLS.SANC 05:00
PROVIDERS: PCP General Practice
DX: Z79.01 Long term (current) use of 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 (principal)
CPT/HCPCS: 36415; 85610

== ENCOUNTER → 2024-03-27 | Outpatient (REF) | payer MEDICARE, MEDICAID, SELFPAY ==
[2024-03-27 09:11] LABS: International Normalized Ratio 2.2; Prothrombin Time (Protime)PT. 24.3 SECONDS (11.7-14.9)
== END ==
LOC: OLS.SANC 05:00
PROVIDERS: PCP General Practice
DX: D64.9 Anemia, unspecified (principal); I50.9 Heart failure, unspecified; Z79.01 Long term (current) use of 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
CPT/HCPCS: 36415; 85610

== ENCOUNTER → 2024-03-31 | Outpatient (REF) | payer MEDICARE, MEDICAID, SELFPAY ==
[2024-03-31 08:39] LABS: International Normalized Ratio 2.6; Prothrombin Time (Protime)PT. 27.3 SECONDS (11.7-14.9)
== END ==
LOC: OLS.SANC 05:00
PROVIDERS: PCP General Practice; Visit Provider Internal Medicine
DX: Z79.01 Long term (current) use of 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 (principal)
CPT/HCPCS: 36415; 85610

== ENCOUNTER → 2024-04-04 05:00 | Outpatient (REF) | payer MEDICARE, MEDICAID, SELFPAY ==
[2024-04-04 08:55] LABS: International Normalized Ratio 2.8; Prothrombin Time (Protime)PT. 28.9 SECONDS (11.7-14.9)
== END ==
LOC: OLS.SANC 05:00
PROVIDERS: PCP General Practice
DX: Z79.01 Long term (current) use of 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 (principal)
CPT/HCPCS: 36415; 85610

== ENCOUNTER → 2024-04-07 | Outpatient (REF) | payer MEDICARE, MEDICAID, SELFPAY ==
[2024-04-07 08:45] LABS: International Normalized Ratio 2.7; Prothrombin Time (Protime)PT. 28.1 SECONDS (11.7-14.9)
== END ==
LOC: OLS.SANC 05:00
PROVIDERS: PCP General Practice; Visit Provider Internal Medicine
DX: Z79.01 Long term (current) use of 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 (principal)
CPT/HCPCS: 36415; 85610

== ENCOUNTER → 2024-04-10 | Outpatient (REF) | payer MEDICARE, MEDICAID, SELFPAY ==
[2024-04-10 09:07] LABS: International Normalized Ratio 2.8; Prothrombin Time (Protime)PT. 29.2 SECONDS (11.7-14.9)
== END ==
LOC: OLS.SANC 05:00
PROVIDERS: PCP General Practice
DX: D64.9 Anemia, unspecified (principal); Z79.01 Long term (current) use of 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
CPT/HCPCS: 36415; 85610

== ENCOUNTER → 2024-04-14 05:00 | Outpatient (REF) | payer MEDICARE, MEDICAID, SELFPAY ==
[2024-04-14 08:43] LABS: International Normalized Ratio 3.3; Prothrombin Time (Protime)PT. 33.2 SECONDS (11.7-14.9)
== END ==
LOC: OLS.SANC 05:00
PROVIDERS: PCP General Practice
DX: Z79.01 Long term (current) use of 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 (principal)
CPT/HCPCS: 36415; 85610

== ENCOUNTER → 2024-04-17 05:00 | Outpatient (REF) | payer MEDICARE, MEDICAID, SELFPAY ==
[2024-04-17 08:51] LABS: International Normalized Ratio 3.1; Prothrombin Time (Protime)PT. 31.3 SECONDS (11.7-14.9)
== END ==
LOC: OLS.SANC 05:00
PROVIDERS: PCP General Practice
DX: D64.9 Anemia, unspecified (principal)
CPT/HCPCS: 36415; 85610

== ENCOUNTER → 2024-04-21 | Outpatient (REF) | payer MEDICARE, MEDICAID, SELFPAY ==
[2024-04-21 08:43] LABS: International Normalized Ratio 2.8; Prothrombin Time (Protime)PT. 29.4 SECONDS (11.7-14.9)
== END ==
LOC: OLS.SANC 05:00
PROVIDERS: PCP General Practice; Visit Provider Internal Medicine
DX: Z79.01 Long term (current) use of 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 (principal)
CPT/HCPCS: 36415; 85610

== ENCOUNTER → 2024-04-24 | Outpatient (REF) | payer MEDICARE, MEDICAID, SELFPAY ==
[2024-04-24 09:19] LABS: International Normalized Ratio 3.6; Prothrombin Time (Protime)PT. 35.6 SECONDS (11.7-14.9)
== END ==
LOC: OLS.SANC 04:00
PROVIDERS: PCP General Practice
DX: Z79.01 Long term (current) use of 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 (principal)
CPT/HCPCS: 36415; 85610

== ENCOUNTER → 2024-04-28 | Outpatient (REF) | payer MEDICARE, MEDICAID, SELFPAY ==
[2024-04-28 08:50] LABS: International Normalized Ratio 2.6; Prothrombin Time (Protime)PT. 27.3 SECONDS (11.7-14.9)
== END ==
LOC: OLS.SANC 05:00
PROVIDERS: PCP General Practice; Visit Provider Internal Medicine
DX: Z79.01 Long term (current) use of 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 (principal)
CPT/HCPCS: 36415; 85610

== ENCOUNTER → 2024-05-01 | Outpatient (REF) | payer MEDICARE, MEDICAID, SELFPAY ==
[2024-05-01 09:18] LABS: International Normalized Ratio 3.1; Prothrombin Time (Protime)PT. 31.9 SECONDS (11.7-14.9)
== END ==
LOC: OLS.SANC 04:00
PROVIDERS: PCP General Practice
DX: Z79.01 Long term (current) use of 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 (principal)
CPT/HCPCS: 36415; 85610

== ENCOUNTER → 2024-05-05 | Outpatient (REF) | payer MEDICARE, MEDICAID, SELFPAY ==
[2024-05-05 09:04] LABS: International Normalized Ratio 3.2; Prothrombin Time (Protime)PT. 32.5 SECONDS (11.7-14.9)
== END ==
LOC: OLS.SANC 05:00
PROVIDERS: PCP General Practice
DX: Z79.01 Long term (current) use of 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 (principal)
CPT/HCPCS: 36415; 85610

== ENCOUNTER → 2024-05-08 | Outpatient (REF) | payer MEDICARE, MEDICAID, SELFPAY ==
[2024-05-08 09:42] LABS: Prothrombin Time (Protime)PT. 40.8 SECONDS (11.7-14.9)
[2024-05-08 09:52] LABS: International Normalized Ratio 4.1
== END ==
LOC: OLS.SANC 05:00
PROVIDERS: PCP General Practice
DX: Z79.01 Long term (current) use of 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 (principal)
CPT/HCPCS: 36415; 85610

== ENCOUNTER → 2024-05-09 | Outpatient (REF) | payer MEDICARE, MEDICAID, SELFPAY ==
[2024-05-09 10:20] LABS: International Normalized Ratio 3.4; Prothrombin Time (Protime)PT. 35.4 SECONDS (11.7-14.9)
== END ==
LOC: OLS.SANC 04:00
PROVIDERS: PCP General Practice
DX: Z79.01 Long term (current) use of 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 (principal)
CPT/HCPCS: 36415; 85610

== ENCOUNTER → 2024-05-12 | Outpatient (REF) | payer MEDICARE, MEDICAID, SELFPAY ==
[2024-05-12 10:03] LABS: International Normalized Ratio 2.1; Prothrombin Time (Protime)PT. 24.1 SECONDS (11.7-14.9)
== END ==
LOC: OLS.SANC 05:00
PROVIDERS: PCP General Practice; Visit Provider Internal Medicine
DX: Z79.01 Long term (current) use of 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 (principal)
CPT/HCPCS: 36415; 85610

== ENCOUNTER → 2024-05-15 | Outpatient (REF) | payer MEDICARE, MEDICAID, SELFPAY ==
[2024-05-15 09:51] LABS: International Normalized Ratio 2.6; Prothrombin Time (Protime)PT. 28.7 SECONDS (11.7-14.9)
== END ==
LOC: OLS.SANC 05:00
PROVIDERS: PCP General Practice
DX: Z79.01 Long term (current) use of 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 (principal)
CPT/HCPCS: 36415; 85610

== ENCOUNTER → 2024-05-19 04:00 | Outpatient (REF) | payer MEDICARE, MEDICAID, SELFPAY ==
[2024-05-19 08:45] LABS: International Normalized Ratio 3.4; Prothrombin Time (Protime)PT. 35.4 SECONDS (11.7-14.9)
== END ==
LOC: OLS.SANC 04:00
PROVIDERS: PCP General Practice
DX: Z79.01 Long term (current) use of 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 (principal); Z79.899 Other long term (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
CPT/HCPCS: 36415; 85610

== ENCOUNTER → 2024-05-20 | Outpatient (REF) | payer MEDICARE, MEDICAID, SELFPAY ==
[2024-05-20 08:24] LABS: Prothrombin Time (Protime)PT. 39.9 SECONDS (11.7-14.9)
== END ==
LOC: OLS.SANC 05:00
PROVIDERS: PCP General Practice
DX: Z79.01 Long term (current) use of 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 (principal)
CPT/HCPCS: 36415; 85610

== ENCOUNTER → 2024-05-22 05:00 | Outpatient (REF) | payer MEDICARE, MEDICAID, SELFPAY ==
[2024-05-22 08:32] LABS: International Normalized Ratio 2.8; Prothrombin Time (Protime)PT. 30.3 SECONDS (11.7-14.9)
== END ==
LOC: OLS.SANC 05:00
PROVIDERS: PCP General Practice
DX: Z79.01 Long term (current) use of 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 (principal)
CPT/HCPCS: 36415; 85610

== ENCOUNTER → 2024-05-26 | Outpatient (REF) | payer MEDICARE, MEDICAID, SELFPAY ==
[2024-05-26 11:02] LABS: International Normalized Ratio 2.2; Prothrombin Time (Protime)PT. 24.5 SECONDS (11.7-14.9)
== END ==
LOC: OLS.SANC 05:00
PROVIDERS: PCP General Practice; Visit Provider Internal Medicine
DX: Z79.01 Long term (current) use of 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 (principal)
CPT/HCPCS: 36415; 85610

== ENCOUNTER → 2024-05-29 | Outpatient (REF) | payer MEDICARE, MEDICAID, SELFPAY ==
[2024-05-29 08:54] LABS: International Normalized Ratio 2.5; Prothrombin Time (Protime)PT. 27.7 SECONDS (11.7-14.9)
== END ==
LOC: OLS.SANC 05:00
PROVIDERS: PCP General Practice
DX: Z79.01 Long term (current) use of 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 (principal)
CPT/HCPCS: 36415; 85610

== ENCOUNTER → 2024-06-02 | Outpatient (REF) | payer MEDICARE, MEDICAID, SELFPAY ==
[2024-06-02 08:45] LABS: International Normalized Ratio 2.6; Prothrombin Time (Protime)PT. 28.6 SECONDS (11.7-14.9)
== END ==
LOC: OLS.SANC 05:00
PROVIDERS: PCP General Practice
DX: Z79.01 Long term (current) use of 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 (principal)
CPT/HCPCS: 36415; 85610

== ENCOUNTER → 2024-06-05 | Outpatient (REF) | payer MEDICARE, MEDICAID, SELFPAY ==
[2024-06-05 08:45] LABS: International Normalized Ratio 2.8; Prothrombin Time (Protime)PT. 30.3 SECONDS (11.7-14.9)
== END ==
LOC: OLS.SANC 05:00
PROVIDERS: PCP General Practice
DX: Z79.01 Long term (current) use of 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 (principal)
CPT/HCPCS: 36415; 85610

== ENCOUNTER → 2024-06-09 | Outpatient (REF) | payer MEDICARE, MEDICAID, SELFPAY ==
[2024-06-09 10:14] LABS: International Normalized Ratio 1.5
== END ==
LOC: OLS.SANC 05:00
PROVIDERS: PCP General Practice; Visit Provider Internal Medicine
DX: Z79.01 Long term (current) use of 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 (principal)
CPT/HCPCS: 36415; 85610

== ENCOUNTER → 2024-06-12 | Outpatient (REF) | payer MEDICARE, MEDICAID, SELFPAY ==
[2024-06-12 10:04] LABS: International Normalized Ratio 2.1
== END ==
LOC: OLS.SANC 05:00
PROVIDERS: PCP General Practice
DX: Z79.01 Long term (current) use of 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 (principal)
CPT/HCPCS: 36415; 85610

== ENCOUNTER → 2024-06-16 | Outpatient (REF) | payer MEDICARE, MEDICAID, SELFPAY ==
[2024-06-16 10:01] LABS: International Normalized Ratio 2.5; Prothrombin Time (Protime)PT. 27.3 SECONDS (11.7-14.9)
== END ==
LOC: OLS.SANC 05:00
PROVIDERS: PCP General Practice
DX: Z79.01 Long term (current) use of 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 (principal)
CPT/HCPCS: 36415; 85610

== ENCOUNTER → 2024-06-19 | Outpatient (REF) | payer MEDICARE, MEDICAID, SELFPAY ==
[2024-06-19 08:22] LABS: International Normalized Ratio 2.6; Prothrombin Time (Protime)PT. 28.6 SECONDS (11.7-14.9)
== END ==
LOC: OLS.SANC 05:00
PROVIDERS: PCP General Practice
DX: Z79.01 Long term (current) use of 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 (principal)
CPT/HCPCS: 36415; 85610

== ENCOUNTER → 2024-06-23 | Outpatient (REF) | payer MEDICARE, MEDICAID, SELFPAY ==
[2024-06-23 09:33] LABS: International Normalized Ratio 2.8; Prothrombin Time (Protime)PT. 29.7 SECONDS (11.7-14.9)
== END ==
LOC: OLS.SANC 05:00
PROVIDERS: PCP General Practice; Visit Provider Internal Medicine
DX: Z79.01 Long term (current) use of 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 (principal)
CPT/HCPCS: 36415; 85610

== ENCOUNTER → 2024-06-26 05:00 | Outpatient (REF) | payer MEDICARE, MEDICAID, SELFPAY ==
[2024-06-26 08:38] LABS: International Normalized Ratio 2.5; Prothrombin Time (Protime)PT. 27.5 SECONDS (11.7-14.9)
== END ==
LOC: OLS.SANC 05:00
PROVIDERS: PCP General Practice
DX: Z79.01 Long term (current) use of 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 (principal)
CPT/HCPCS: 36415; 85610

== ENCOUNTER → 2024-06-30 | Outpatient (REF) | payer MEDICARE, MEDICAID, SELFPAY ==
[2024-06-30 09:52] LABS: International Normalized Ratio 2.4; Prothrombin Time (Protime)PT. 26.8 SECONDS (11.7-14.9)
== END ==
LOC: OLS.SANC 05:00
PROVIDERS: PCP General Practice
DX: Z79.899 Other long term (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 (principal); Z79.01 Long term (current) use of 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
CPT/HCPCS: 36415; 85610

== ENCOUNTER → 2024-07-03 | Outpatient (REF) | payer MEDICARE, MEDICAID, SELFPAY ==
[2024-07-03 08:53] LABS: International Normalized Ratio 2.5; Prothrombin Time (Protime)PT. 27.2 SECONDS (11.7-14.9)
== END ==
LOC: OLS.SANC 05:00
PROVIDERS: PCP General Practice
DX: Z79.01 Long term (current) use of 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 (principal)
CPT/HCPCS: 36415; 85610

== ENCOUNTER → 2024-07-07 | Outpatient (REF) | payer MEDICARE, MEDICAID, SELFPAY ==
[2024-07-07 08:51] LABS: International Normalized Ratio 2.5; Prothrombin Time (Protime)PT. 27.2 SECONDS (11.7-14.9)
== END ==
LOC: OLS.SANC 04:00
PROVIDERS: PCP General Practice
DX: Z79.01 Long term (current) use of 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 (principal)
CPT/HCPCS: 36415; 85610

== ENCOUNTER → 2024-07-11 | Outpatient (REF) | payer MEDICARE, MEDICAID, SELFPAY ==
[2024-07-11 08:26] LABS: International Normalized Ratio 2.5; Prothrombin Time (Protime)PT. 27.7 SECONDS (11.7-14.9)
== END ==
LOC: OLS.SANC 05:00
PROVIDERS: PCP General Practice; Visit Provider Internal Medicine
DX: Z79.01 Long term (current) use of 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 (principal)
CPT/HCPCS: 36415; 85610

== ENCOUNTER → 2024-07-14 | Outpatient (REF) | payer MEDICARE, MEDICAID, SELFPAY ==
[2024-07-14 08:37] LABS: International Normalized Ratio 2.5; Prothrombin Time (Protime)PT. 27.5 SECONDS (11.7-14.9)
== END ==
LOC: OLS.SANC 05:00
PROVIDERS: PCP General Practice; Visit Provider Internal Medicine
DX: Z79.01 Long term (current) use of 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 (principal)
CPT/HCPCS: 36415; 85610

== ENCOUNTER → 2024-07-17 | Outpatient (REF) | payer MEDICARE, MEDICAID, SELFPAY ==
[2024-07-17 07:59] LABS: International Normalized Ratio 2.9; Prothrombin Time (Protime)PT. 31.1 SECONDS (11.7-14.9)
== END ==
LOC: OLS.SANC 04:00
PROVIDERS: PCP General Practice
DX: Z79.01 Long term (current) use of 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 (principal)
CPT/HCPCS: 36415; 85610

== ENCOUNTER → 2024-07-21 | Outpatient (REF) | payer MEDICARE, MEDICAID, SELFPAY ==
[2024-07-21 09:35] LABS: International Normalized Ratio 1.6; Prothrombin Time (Protime)PT. 19.6 SECONDS (11.7-14.9)
== END ==
LOC: OLS.SANC 05:00
PROVIDERS: PCP General Practice
DX: Z79.01 Long term (current) use of 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 (principal)
CPT/HCPCS: 36415; 85610

== ENCOUNTER → 2024-07-24 | Outpatient (REF) | payer MEDICARE, MEDICAID, SELFPAY ==
[2024-07-24 09:34] LABS: International Normalized Ratio 3.4; Prothrombin Time (Protime)PT. 35.4 SECONDS (11.7-14.9)
== END ==
LOC: OLS.SANC 04:00
PROVIDERS: PCP General Practice
DX: Z79.01 Long term (current) use of 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 (principal)
CPT/HCPCS: 36415; 85610

== ENCOUNTER → 2024-07-25 | Outpatient (REF) | payer MEDICARE, MEDICAID, SELFPAY ==
[2024-07-25 08:11] LABS: Prothrombin Time (Protime)PT. 32.1 SECONDS (11.7-14.9)
== END ==
LOC: OLS.SANC 05:00
PROVIDERS: PCP General Practice; Visit Provider Internal Medicine
DX: Z79.01 Long term (current) use of 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 (principal)
CPT/HCPCS: 36415; 85610

== ENCOUNTER → 2024-07-28 | Outpatient (REF) | payer MEDICARE, MEDICAID, SELFPAY ==
[2024-07-28 10:36] LABS: International Normalized Ratio 2.7; Prothrombin Time (Protime)PT. 29.6 SECONDS (11.7-14.9)
== END ==
LOC: OLS.SANC 05:00
PROVIDERS: PCP General Practice
DX: Z79.01 Long term (current) use of 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 (principal)
CPT/HCPCS: 36415; 85610

== ENCOUNTER → 2024-07-31 | Outpatient (REF) | payer MEDICARE, MEDICAID, SELFPAY ==
[2024-07-31 08:21] LABS: International Normalized Ratio 3.2; Prothrombin Time (Protime)PT. 33.5 SECONDS (11.7-14.9)
== END ==
LOC: OLS.SANC 04:00
PROVIDERS: PCP General Practice
DX: Z79.01 Long term (current) use of 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 (principal)
CPT/HCPCS: 36415; 85610

== ENCOUNTER → 2024-08-04 | Outpatient (REF) | payer MEDICARE, MEDICAID, SELFPAY ==
[2024-08-04 09:15] LABS: International Normalized Ratio 1.9; Prothrombin Time (Protime)PT. 22.1 SECONDS (11.7-14.9)
== END ==
LOC: OLS.SANC 05:00
PROVIDERS: PCP General Practice; Visit Provider Internal Medicine
DX: Z79.01 Long term (current) use of 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 (principal)
CPT/HCPCS: 36415; 85610

== ENCOUNTER → 2024-08-07 | Outpatient (REF) | payer MEDICARE, MEDICAID, SELFPAY ==
[2024-08-07 08:31] LABS: International Normalized Ratio 2.8; Prothrombin Time (Protime)PT. 30.3 SECONDS (11.7-14.9)
== END ==
LOC: OLS.SANC 05:00
PROVIDERS: PCP General Practice; Visit Provider Internal Medicine
DX: Z79.01 Long term (current) use of 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 (principal)
CPT/HCPCS: 36415; 85610

== ENCOUNTER → 2024-08-11 | Outpatient (REF) | payer MEDICARE, MEDICAID, SELFPAY ==
[2024-08-11 10:37] LABS: International Normalized Ratio 3.1; Prothrombin Time (Protime)PT. 32.4 SECONDS (11.7-14.9)
== END ==
LOC: OLS.SANC 05:00
PROVIDERS: PCP General Practice
DX: Z79.01 Long term (current) use of 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 (principal)
CPT/HCPCS: 36415; 85610

== ENCOUNTER → 2024-08-14 | Outpatient (REF) | payer MEDICARE, MEDICAID, SELFPAY ==
[2024-08-14 08:38] LABS: International Normalized Ratio 2.4; Prothrombin Time (Protime)PT. 26.6 SECONDS (11.7-14.9)
== END ==
LOC: OLS.SANC 05:00
PROVIDERS: PCP General Practice
DX: Z79.01 Long term (current) use of 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 (principal)
CPT/HCPCS: 36415; 85610

== ENCOUNTER → 2024-08-18 | Outpatient (REF) | payer MEDICARE, MEDICAID, SELFPAY ==
[2024-08-18 09:25] LABS: Prothrombin Time (Protime)PT. 31.4 SECONDS (11.7-14.9)
== END ==
LOC: OLS.SANC 05:00
PROVIDERS: PCP General Practice
DX: Z79.01 Long term (current) use of 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 (principal); Z79.899 Other long term (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
CPT/HCPCS: 36415; 85610

== ENCOUNTER → 2024-08-21 | Outpatient (REF) | payer MEDICARE, MEDICAID, SELFPAY ==
[2024-08-21 09:31] LABS: International Normalized Ratio 1.7; Prothrombin Time (Protime)PT. 20.1 SECONDS (11.7-14.9)
[2024-08-21 09:42] LABS: PSA,Total - Annual Screen 0.52 ng/mL (0.02-4.00)
== END ==
LOC: OLS.SANC 05:00
PROVIDERS: PCP General Practice
DX: D64.9 Anemia, unspecified (principal); I50.9 Heart failure, unspecified; Z79.01 Long term (current) use of 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; Z12.5 Encounter for screening for malignant neoplasm of prostate
CPT/HCPCS: 36415; 84153; 85610; G0103

== ENCOUNTER → 2024-08-25 | Outpatient (REF) | payer MEDICARE, MEDICAID, SELFPAY ==
[2024-08-25 09:47] LABS: International Normalized Ratio 1.8; Prothrombin Time (Protime)PT. 21.6 SECONDS (11.7-14.9)
== END ==
LOC: OLS.SANC 04:00
PROVIDERS: PCP General Practice
DX: Z79.01 Long term (current) use of 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 (principal)
CPT/HCPCS: 36415; 85610

== ENCOUNTER → 2024-08-28 | Outpatient (REF) | payer MEDICARE, MEDICAID, SELFPAY ==
[2024-08-28 09:00] LABS: International Normalized Ratio 2.4; Prothrombin Time (Protime)PT. 26.7 SECONDS (11.7-14.9)
== END ==
LOC: OLS.SANC 05:00
PROVIDERS: PCP General Practice; Visit Provider Internal Medicine
DX: Z79.01 Long term (current) use of 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 (principal)
CPT/HCPCS: 36415; 85610

== ENCOUNTER → 2024-09-01 | Outpatient (REF) | payer MEDICARE, MEDICAID, SELFPAY ==
[2024-09-01 09:23] LABS: International Normalized Ratio 2.9; Prothrombin Time (Protime)PT. 30.7 SECONDS (11.7-14.9)
== END ==
LOC: OLS.SANC 05:00
PROVIDERS: PCP General Practice; Visit Provider Internal Medicine
DX: Z79.01 Long term (current) use of 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 (principal)
CPT/HCPCS: 36415; 85610

== ENCOUNTER → 2024-09-04 | Outpatient (REF) | payer MEDICARE, MEDICAID, SELFPAY ==
[2024-09-04 08:55] LABS: International Normalized Ratio 1.7; Prothrombin Time (Protime)PT. 20.8 SECONDS (11.7-14.9)
== END ==
LOC: OLS.SANC 05:00
PROVIDERS: PCP General Practice; Visit Provider Internal Medicine
DX: Z79.01 Long term (current) use of 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 (principal)
CPT/HCPCS: 36415; 85610

== ENCOUNTER → 2024-09-08 | Outpatient (REF) | payer MEDICARE, MEDICAID, SELFPAY ==
[2024-09-08 10:13] LABS: Prothrombin Time (Protime)PT. 22.8 SECONDS (11.7-14.9)
== END ==
LOC: OLS.SANC 04:00
PROVIDERS: PCP General Practice
DX: Z79.01 Long term (current) use of 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 (principal)
CPT/HCPCS: 36415; 85610

== ENCOUNTER → 2024-09-11 05:00 | Outpatient (REF) | payer MEDICARE, MEDICAID, SELFPAY ==
[2024-09-11 08:21] LABS: Prothrombin Time (Protime)PT. 22.9 SECONDS (11.7-14.9)
== END ==
LOC: OLS.SANC 05:00
PROVIDERS: PCP General Practice
DX: Z79.01 Long term (current) use of 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 (principal)
CPT/HCPCS: 36415; 85610

== ENCOUNTER → 2024-09-15 | Outpatient (REF) | payer MEDICARE, MEDICAID, SELFPAY ==
[2024-09-15 10:00] LABS: International Normalized Ratio 2.4; Prothrombin Time (Protime)PT. 26.3 SECONDS (11.7-14.9)
== END ==
LOC: OLS.SANC 05:00
PROVIDERS: PCP General Practice; Visit Provider Internal Medicine
DX: Z79.01 Long term (current) use of 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 (principal)
CPT/HCPCS: 36415; 85610

== ENCOUNTER → 2024-09-18 | Outpatient (REF) | payer MEDICARE, MEDICAID, SELFPAY ==
[2024-09-18 09:03] LABS: International Normalized Ratio 2.2; Prothrombin Time (Protime)PT. 25.1 SECONDS (11.7-14.9)
== END ==
LOC: OLS.SANC 05:00
PROVIDERS: PCP General Practice
DX: Z79.01 Long term (current) use of 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 (principal)
CPT/HCPCS: 36415; 85610

== ENCOUNTER → 2024-09-22 | Outpatient (REF) | payer MEDICARE, MEDICAID, SELFPAY ==
[2024-09-22 09:46] LABS: International Normalized Ratio 2.5; Prothrombin Time (Protime)PT. 27.4 SECONDS (11.7-14.9)
== END ==
LOC: OLS.SANC 05:00
PROVIDERS: PCP General Practice
DX: Z79.01 Long term (current) use of 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 (principal)
CPT/HCPCS: 36415; 85610

== ENCOUNTER → 2024-09-25 05:00 | Outpatient (REF) | payer MEDICARE, MEDICAID, SELFPAY ==
[2024-09-25 07:54] LABS: International Normalized Ratio 2.4; Prothrombin Time (Protime)PT. 26.7 SECONDS (11.7-14.9)
== END ==
LOC: OLS.SANC 05:00
PROVIDERS: PCP General Practice
DX: Z79.01 Long term (current) use of 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 (principal)
CPT/HCPCS: 36415; 85610

== ENCOUNTER → 2024-09-30 | Outpatient (REF) | payer MEDICARE, MEDICAID, SELFPAY ==
[2024-09-30 09:47] LABS: International Normalized Ratio 3.1; Prothrombin Time (Protime)PT. 32.6 SECONDS (11.7-14.9)
== END ==
LOC: OLS.SANC 04:00
PROVIDERS: PCP General Practice
DX: Z79.01 Long term (current) use of 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 (principal)
CPT/HCPCS: 36415; 85610

== ENCOUNTER → 2024-10-02 05:00 | Outpatient (REF) | payer MEDICARE, MEDICAID, SELFPAY ==
[2024-10-02 08:41] LABS: International Normalized Ratio 2.3
== END ==
LOC: OLS.SANC 05:00
PROVIDERS: PCP General Practice
DX: Z79.01 Long term (current) use of 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 (principal)
CPT/HCPCS: 36415; 85610

== ENCOUNTER → 2024-10-06 05:00 | Outpatient (REF) | payer MEDICARE, MEDICAID, SELFPAY ==
[2024-10-06 08:43] LABS: International Normalized Ratio 2.7; Prothrombin Time (Protime)PT. 29.6 SECONDS (11.7-14.9)
== END ==
LOC: OLS.SANC 05:00
PROVIDERS: PCP General Practice; Visit Provider Internal Medicine
DX: Z79.01 Long term (current) use of 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 (principal)
CPT/HCPCS: 36415; 85610

== ENCOUNTER → 2024-10-09 05:00 | Outpatient (REF) | payer MEDICARE, MEDICAID, SELFPAY ==
[2024-10-09 10:00] LABS: Prothrombin Time (Protime)PT. 31.8 SECONDS (11.7-14.9)
== END ==
LOC: OLS.SANC 05:00
PROVIDERS: PCP General Practice
DX: Z79.01 Long term (current) use of 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 (principal)
CPT/HCPCS: 36415; 85610

== ENCOUNTER → 2024-10-13 05:00 | Outpatient (REF) | payer MEDICARE, MEDICAID, SELFPAY ==
[2024-10-13 07:58] LABS: International Normalized Ratio 1.9; Prothrombin Time (Protime)PT. 22.4 SECONDS (11.7-14.9)
== END ==
LOC: OLS.SANC 05:00
PROVIDERS: PCP General Practice; Visit Provider Internal Medicine
DX: Z79.01 Long term (current) use of 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 (principal)
CPT/HCPCS: 36415; 85610

== ENCOUNTER → 2024-10-16 05:00 | Outpatient (REF) | payer MEDICARE, MEDICAID, SELFPAY ==
--- OUTSIDE RECORDS SUMMARY | 2024-10-16 04:12 | XMS RPT_ITS | CCD ---
Author Organization [facility] Care Team Providers Care Supervisor Color Paste Mixing Name Role Phone Mateus Burris Primary Care Provider Monika Staley Unavailable Unavailable Leonor, Maddy L Unavailable Unavailable Update Needed Unavailable Unavailable Mateus Burris Primary Care Provider Wing Ritter Unavailable Unavailable Monika Staley Unavailable Unavailable Leonor, Maddy Belem Unavailable Unavailable Leonor, Maddy L Unavailable Unavailable Luís Shiela Unavailable Unavailable Unavailable Monika Staley MD Unavailable Unavailable Wing Ritter MD Unavailable Unavailable Luís Shiela Unavailable Unavailable Update Needed Unavailable Unavailable Leonor, Maddy Belem Unavailable Unavailable Mateus Burris Primary Care Provider Monika Staley MD Primary Care Provider Monika Staley MD Primary Care Provider Carlos Cavazos Primary Care Unavailable Carlos Cavazos Referring Unavailable Cliff Espinoza Attending Unavailable Carlos Cavazos Primary Care Unavailable Carlos Cavazos Referring Unavailable Carlos Cavazos Attending Unavailable Carlos Cavazos Attending Unavailable Carlos Cavazos Primary Care Unavailable Carlos Cavazos Referring Unavailable PROVIDER, UNKNOWN Referring Unavailable Mateus Burris Primary Care Unavailable Karon Corrales Attending Unavailable Carlos Cavazos MD Primary Care Provider PROVIDER, UNKNOWN Primary Care Unavailable PROVIDER, UNKNOWN Referring Unavailable LANETTE MUNGUIA Attending Unavailable SHARON HSIEH Attending Jeanine vailable PROVIDER, UNKNOWN Primary Care Unavailable PROVIDER, UNKNOWN Referring Unavailable PROVIDER, UNKNOWN Referring Unavailable MATEUS BURRIS Primary Care Unavailabl DANTE Barrera Attending Unavailable Kenny, Carlos Primary Care Provider Quinn VALLADARES, Rebecca L Unavailable Quinn VALLADARES, Rebecca L Unavailable REBECCA BUCK Attending Unavailable REBECCA BUCK Referring Unavailable CARLOS CAVAZOS Primary Care Unavailable REBECCA BUCK Attending Unavailable KENNY, CARLOS Primary Care Unavailable REBECCA BUCK Attending Unavailable KENNY, CARLOS Primary Care Unavailable Luís VALLADARES, Dr. Monika Horner Primary Care Provider [facility] Attending Provider [phone] Carlos Nelson Attending Provider Jonh Pascual MD, Dr. Calderon Attending Provider Jany Crisostomo MD, Dr. Calderon Referring Provider Jany Staley MD, Dr. Monika Horner Primary Care Provider Carlos Nelson Attending Provider Jonh Pascual MD, Dr. Calderon Attending Provider Dr. Kvng Myles MD Referring Provider Karon Bui MD Attending Provider Karon Bui MD Referring Provider Dr. Monika Dolan MD Primary Care Provider Dr. Kvng Crisostomo MD Attending Provider Jeanineva Carlos Barnes Attending Provider Jonh Cardoza MD, Dr. Monika Horner Primary Care Provider Dr. Kvng Crisostomo MD Attending Provider Jany Staley MD, Dr. Monika Horner Primary Care Provider Andressa VALLADARES, Dr. Calderon Attending Provider Carlos Calderon Attending Provider Jonh Cardoza MD, Dr. Monika Horner Primary Care Provider Dr. Kvng Crisostomo MD Attending Provider Jany Crisostomo MD, Dr. Calderon Referring Provider Unava ilable KatCarlos Flood Attending Provider Unavailab ish Staley MD, Dr. Monika Horner Primary Care Provider Andressa VALLADARES, Dr. Calderon Attending Provider Jany Staley MD, Dr. Monika Horner Primary Care Provider Andressa VALLADARES, Dr. Calderon Attending Provider Jany Staley MD, Dr. Monika Horner Primary Care Provider Andressa VALLADARES, Dr. Calderon Attending Provider Unava ilable Katros Carlos NOVAK Attending Provider Unavailab le Karon Shah Attending Unavail able Luís, Shiela Primary Care Unavailable Katsaros OLSCarlos Attending Unavailable Luís, Shiela Primary Care Unavailable [facility], [place] Attending Unavai lable Luís, Shiela Primary Care Unavailable Mukkamamarlenea Karon NOVAK Attending Unavail able Luís, Shiela Primary Care Unavailable Katsaros OLSCarlos Attending Unavailable Luís, Shiela Primary Care Unavailable [facility], [place] Attending Unavai lable Luís, Shiela Primary Care Unavailable Katsaros Carlos NOVAK Attending Unavailable Luís, Shiela Primary Care Unavailable Katsaros Carlos NOVAK Referring Unavailable Katsaros OLSCarlos Attending Unavailable Luís, Shiela Primary Care Unavailable [facility], [place] Attending Unavai lable Luís, Shiela Primary Care Unavailable [facility], [place] Attending Unavai lable Luís, Shiela Primary Care Unavailable Crisostomo Kvng NOVAK Referring Unavailable Crisostomo OLSKvng Attending Unavailable Luís, Shiela Primary Care Unavailable Katsaros OLSCarlos Attending Unavailable Luís, Shiela Primary Care Unavailable Crisostomo OLSKvng Attending Unavailable Luís, Shiela Primary Care Unavailable Crisostomo OLSKvng Attending Unavailable Luís, Shiela Primary Care Unavailable Katsaros OLS, Carlos Attending Unavailable Luís, Shiela Primary Care Unavailable [facility], [place] Attending Unavai lable Luís, Shiela Primary Care Unavailable Katsaros OLS, Peter Attending Unavailable Luís, Shiela Primary Care Unavailable Katsaros OLS, Peter Attending Unavailable Luís, Shiela Primary Care Unavailable [facility] Attending Unavai lable Luís, Shiela Primary Care Unavailable [place] OLS, Mahaveer Attending Unavail able Luís, Shiela Primary Care Unavailable Katsaros OLS, Peter Attending Unavailable Luís, Shiela Primary Care Unavailable [place] OLS, Mahaveer Referring Unavail able [place] OLS, Mahaveer Attending Unavail able Luís, Shiela Primary Care Unavailable [place] OLS, Mahaveer Referring Unavail able [place] OLS, Mahaveer Attending Unavail able Luís, Shiela Primary Care Unavailable Katsaros OLS, Peter Attending Unavailable Luís, Shiela Primary Care Unavailable Katsaros OLS, Peter Attending Unavailable Luís, Shiela Primary Care Unavailable [place] OLS, Mahaveer Attending Unavail able Luís, Shiela Primary Care Unavailable [place] OLS, Mahaveer Attending Unavail able Luís, Shiela Primary Care Unavailable [place] OLS, Mahaveer Attending Unavail able Luís, Shiela Primary Care Unavailable [place] OLS, Mahaveer Attending Unavail able Luís, Shiela Primary Care Unavailable [place] OLS, Mahaveer Referring Unavail able [place] OLS, Mahaveer Attending Unavail able Luís, Shiela Primary Care Unavailable Katsaros OLS, Peter Attending Unavailable Luís, Shiela Primary Care Unavailable Katsaros OLS, Peter Attending Unavailable Luís, Shiela Primary Care Unavailable Katsaros OLS, Peter Attending Unavailable Luís, Shiela Primary Care Unavailable [place] OLS, Mahaveer Referring Unavail able [place] OLS, Mahaveer Attending Unavail able Luís, Shiela Primary Care Unavailable [place] OLS, Mahaveer Attending Unavail able Luís, Shiela Primary Care Unavailable Katsaros OLS, Peter Attending Unavailable Luís, Shiela Primary Care Unavailable Katsaros OLS, Peter Attending Unavailable Luís, Shiela Primary Care Unavailable Katsaros OLS, Peter Attending Unavailable Luís, Shiela Primary Care Unavailable [facility], [place] Attending Unavai lable Luís, Shiela Primary Care Unavailable Katsaros OLS, Peter Attending Unavailable Luís, Shiela Primary Care Unavailable Crisostomo OLS, Vicentebaljeet Attending Unavailable Crisostomo OLS, Babbaljeet Referring Unavailable Luís, Shiela Primary Care Unavailable Luís, Shiela Primary Care Unavailable Katsaros OLS, Peter Attending Unavailable Crisostomo OLS, Vicentebaljeet Attending Unavailable Crisostomo OLS, Babbaljeet Referring Unavailable Luís, Shiela Primary Care Unavailable Katsaros OLS, Peter Referring Unavailable Katsaros OLS, Peter Attending Unavailable Luís, Shiela Primary Care Unavailable Katsaros OLS, Peter Attending Unavailable Luís, Shiela Primary Care Unavailable [facility], [place] Attending Unavai lable Luís, Shiela Primary Care Unavailable Katsaros OLS, Peter Attending Unavailable Luís, Shiela Primary Care Unavailable [facility], [place] Attending Unavai lable Luís, Shiela Primary Care Unavailable [facility], [place] Attending Unavai lable Luís, Shiela Primary Care Unavailable Katsaros OLS, Peter Attending Unavailable Luís, Shiela Primary Care Unavailable Katsaros OLS, Peter Attending Unavailable Luís, Shiela Primary Care Unavailable Katsaros OLS, Peter Attending Unavailable Luís, Shiela Primary Care Unavailable [facility], [place] Attending Unavai lable Luís, Shiela Primary Care Unavailable Katsaros OLS, Peter Referring Unavailable Katsaros OLS, Peter Attending Unavailable Luís, Shiela Primary Care Unavailable Katsaros OLS, Peter Attending Unavailable Luís, Shiela Primary Care Unavailable Luís, Shiela Primary Care Unavailable Katsaros OLS, Peter Attending Unavailable Katsaros OLS, Peter Attending Unavailable Luís, Shiela Primary Care Unavailable Katsaros OLS, Peter Attending Unavailable Luís, Shiela Primary Care Unavailable [facility], [place] Attending Unavai lable Luís, Shiela Primary Care Unavailable Katsaros OLS, Peter Attending Unavailable Luís, Shiela Primary Care Unavailable [facility], [place] Attending Unavai lable Luís, Shiela Primary Care Unavailable [facility], [place] Attending Unavai lable Luís, Shiela Primary Care Unavailable [facility], [place] Attending Unavai lable Luís, Shiela Primary Care Unavailable Crisostomo OLS, Babbaljeet Attending Unavailable Luís, Shiela Primary Care Unavailable [facility], [place] Attending Unavai lable Luís, Shiela Primary Care Unavailable Katsaros OLS Peter Attending Unavailable Luís, Shiela Primary Care Unavailable Crisostomo OLS, Babbaljeet Attending Unavailable Luís, Shiela Primary Care Unavailable Katsaros OLS, Peter Attending Unavailable Luís, Shiela Primary Care Unavailable Crisostomo OLS, Babbaljeet Attending Unavailable Luís, Shiela Primary Care Unavailable Crisostomo OLS, Babbaljeet Attending Unavailable Luís, Shiela Primary Care Unavailable Crisostomo OLS, Babbaljeet Attending Unavailable Luís, Shiela Primary Care Unavailable Katsaros OLS, Carlos Attending Unavailable Luís, Shiela Primary Care Unavailable Katsaros OLS Peter Referring Unavailable Katsaros OLS, Carlos Attending Unavailable Luís, Shiela Primary Care Unavailable Katsaros OLS Peter Attending Unavailable Katsaros OLS, Peter Referring Unavailable Luís, Shiela Primary Care Unavailable Crisostomo OLS, Babbaljeet Attending Unavailable Luís, Shiela Primary Care Unavailable Crisostomo OLS, Babbaljeet Attending Unavailable Luís, Shiela Primary Care Unavailable Crisostomo OLS, Babbaljeet Referring Unavailable Crisostomo OLS, Babbaljeet Attending Unavailable Luís, Shiela Primary Care Unavailable Katsaros OLS, Peter Attending Unavailable Luís, Shiela Primary Care Unavailable Crisostomo OLS, Babbaljeet Attending Unavailable Luís, Shiela Primary Care Unavailable Crisostomo OLS, Babbaljeet Referring Unavailable Crisostomo OLS, Babbaljeet Attending Unavailable Luís, Shiela Primary Care Unavailable Crisostomo OLS, Babbaljeet Attending Unavailable Luís, Shiela Primary Care Unavailable Katsaros OLS, Peter Attending Unavailable Luís, Shiela Primary Care Unavailable Crisostomo OLS, Babbaljeet Attending Unavailable Luís, Shiela Primary Care Unavailable Crisostomo OLS, Babbaljeet Attending Unavailable Luís, Shiela Primary Care Unavailable Crisostomo OLS, Babbaljeet Attending Unavailable Luís, Shiela Primary Care Unavailable Crisostomo OLS, Babbaljeet Attending Unavailable Luís, Shiela Primary Care Unavailable Katsaros OLS, Peter Attending Unavailable Luís, Shiela Primary Care Unavailable Katsaros OLS, Peter Attending Unavailable Luís, Shiela Primary Care Unavailable Katsaros OLS, Peter Attending Unavailable Luís, Shiela Primary Care Unavailable Katsaros OLS, Peter Attending Unavailable Luís, Shiela Primary Care Unavailable [place] OLS, Mahaveer Attending Unavail able Luís, Shiela Primary Care Unavailable [place] OLS, Mahaveer Attending Unavail able Luís, Shiela Primary Care Unavailable [place] OLS, Mahaveer Attending Unavail able Luís, Shiela Primary Care Unavailable Katsaros OLS, Peter Attending Unavailable Luís, Shiela Primary Care Unavailable [place] OLS, Carlaaveer Attending Unavail able Luís, Shiela Primary Care Unavailable [place] OLS, Carlaaveer Referring Unavail able Mukkamalla OLS, Carlaaveer Attending Unavail able Luís, Shiela Primary Care Unavailable Katsaros OLS, Peter Attending Unavailable Luís, Shiela Primary Care Unavailable Crisostomo OLS, Vicentebalgerson Attending Unavailable Luís, Shiela Primary Care Unavailable Crisostomo OLS, Babjulyet Attending Unavailable Luís, Shiela Primary Care Unavailable Crisostomo OLS, Babbaljeet Attending Unavailable Luís, Shiela Primary Care Unavailable Crisostomo OLS, Elizabethet Attending Unavailable Luís, Shiela Primary Care Unavailable [place] OLS, Carlaaveer Attending Unavail able Mukkamalla OLS, Melindaer Referring Unavail able Luís, Shiela Primary Care Unavailable Katsaros OLS, Peter Attending Unavailable Luís, Shiela Primary Care Unavailable Katsaros OLS, Peter Attending Unavailable Luís, Shiela Primary Care Unavailable Katsaros OLS, Peter Attending Unavailable Luís, Shiela Primary Care Unavailable Katsaros OLS, Peter Attending Unavailable Luís, Shiela Primary Care Unavailable [place] OLS, Carlaaveer Referring Unavail able Mukkamalla OLS, Mahaveer Attending Unavail able Luís, Shiela Primary Care Unavailable Allergies Allergy Classification Reported Allergen(s) Allergy Type Date of Onset Reaction(s) Facility (13 sources) Morphine Drug Allergy 5 [facility] Work Phone: (15 sources) Alcohol Propensity to adverse reactions to drug 3 Rash, Hives, Other: See Comments, Other [facility] Work Phone: (1 source) Latex Drug Allergy 0 Rash [facility] (8 sources) Cortisone Drug Allergy [address] [facility] (7 sources) Latex Allergy to substance 0 Rash [facility] Medications Current Medications Medication Drug Class(es) Dates Sig (Normalized) Sig (Original) Acetaminophen (10 sources) Start: 10-21-2021 acetaminophen (TYLENOL) tablet 650 mg Start: 09-14-2021 acetaminophen (TYLENOL) 325 MG tablet 650 mg every 6 hours as needed 0 09/14/2021 Active take 2 tablets by mo ut every eight hours acetaminophen (TYLENOL) 325 mg tablet Take 650 mg by mouth every 8 hours. 0 Active Comment on above: Take 650 mg by mouth every 8 hours. albuterol 0.833 mg/ml / ipratropium bromide 0.167 mg/ml inhalation solution (3 sources) Anticholinergic, beta2-Adrenergic Agonist Start: 10-22-2021 ipratropium-albuterol (DUONEB) nebulizer solution 1 ampule Start: 10-21-2021 End: 10-22-2021 1 ampule, Inhalation, EVERY 4 HOURS WHILE AWAKE, First dose on Sun10/21/21 at 0800, Until Discontinued Initiate RT Bronchodilator Protocol: Yes Start: 06-28-2021 take 3 mL by inhalat ion four times daily ipratropium-albuterol (DUONEB) 0.5 mg-3 mg(2.5 mg base)/3 mL nebu Inhale 3 mL as instructed four times daily. 0 06/28/2021 Active Comment on above: Inhale 3 mL as instr ucted four times daily. baclofen 10 mg oral tablet (8 sources) gamma-Aminobutyric Acid-ergic Agonist Start: 07-25-2019 take 1 tablet by mouth three times daily as needed for muscle spasms baclofen (LIORESAL) 10 MG tablet TAKE 1 TABLET BY MOUTH 3 TIMES DAILY NEEDED FOR MUSCLE SPASMS 270 tablet 1 07/25/2019 Active Start: 12-03-2018 take 1 tablet by joan th three times daily as needed for muscle spasms baclofen (LIORESAL) 10 MG tablet TAKE 1 TABLET BY MOUTH 3 TIMES DAILY NEEDED FOR MUSCLE SPASMS 270 tablet 1 12/03/2018 Active take 1 tablet by joan th once daily at bedtime baclofen 10 mg tablet Take 10 mg by mouth daily at bedtime. 0 Active Comment on above: Take 10 mg by mouth daily at bedtime. bisacodyl 10 mg rectal suppository (2 sources) Stimulant Laxative Start: 2 take 10 mg rectal route once daily as needed bisacodyl (DULCOLAX) [address] 10 mg rectally daily as needed 0 08/19/2021 Active Comment on above: 1 Suppository by REC MONIQUE route once daily as needed. bumetanide 2 mg oral tablet (20 sources) Loop Diuretic Start: 4 bumetanide (Bumex) 2 MG tablet Start: 10-21-2021 take 2 mg by mouth once daily 2 mg, Oral, DAILY, First dose on Sun10/21/21 at 0900, Until Discontinued Start: 06-03-2013 take 1 tablet by joan th once daily bumetanide (BUMEX) 2 MG tablet TAKE 1 TABLET BY MOUTH DAILY 90 tablet 1 10/06/2019 Active bumetanide (BUME X ORAL) Take by mouth. 0 Active Comment on above: Take by mouth. Elastic Bandages & Supports (MEDICAL COMPRESSION STOCKINGS) MISC (6 sources) Start: 9 Elastic Bandages & Supports (MEDICAL COMPRESSION STOCKINGS) MISC Indications: Venous stasis 1 each by Does not apply route daily as needed (swelling) 1 each 0 04/02/2019 Active Ginseng 100 MG CAPS (6 sources) Start: 6 take 1 capsule by mouth once daily Ginseng 100 MG CAPS Take 100 mg by mouth daily 30 capsule 3 01/31/2016 Active Handicap Placard MISC (6 sources) Start: 9 Handicap Placard MISC by Does not apply route Duration: 5 years, 2023 1 each 0 12/16/2018 Active levETIRAcetam 750 mg oral tablet (5 sources) Start: 4 levETIRAcetam (Keppra) 750 MG tablet Start: 10-29-2021 take 1 tablet by joan th twice daily levETIRAcetam (KEPPRA) 750 MG tablet Take 1 tablet by mouth 2 times daily 60 tablet 3 10/29/2021 Active levETIRAcetam (KEPPRA) 750 mg in sodium chloride 0.9 % 100 mL IVPB (1 source) Start: 10-26-2021 levETIRAcetam (KEPPRA) 750 mg in sodium chloride 0.9 % 100 mL IVPB magnesium hydroxide 80 mg/ml oral suspension (8 sources) take 30 mL by mouth once daily as needed magnesium hydroxide (Milk of Magnesia) 400 MG/5ML suspension Take 30 mL by mouth daily as needed. 0 Active Multiple Vitamins-Minerals (THERA M PLUS) TABS (1 source) Start: 09-15-2021 take 1 tablet by mouth once daily Multiple Vitamins-Minerals (THERA M PLUS) TABS Take 1 tablet by mouth daily 0 09/15/2021 Active ondansetron (ZOFRAN-ODT) disintegrating tablet 4 mg (1 source) Start: 10-21-2021 ondansetron (ZOFRAN-ODT) disintegrating tablet 4 mg Pediatric Multivit-Minerals (Complete Multi-Vitamin) chewable tablet (1 source) Pediatric Multivit-Minerals (Complete Multi-Vitamin) chewable tablet Chew. 0 Active microencapsulated potassium chloride 20 meq extended release oral tablet (20 sources) Start: 07-29-2023 potassium chlo ride CR (Klor-Con M20) 20 MEQ ER tablet Start: 10-21-2021 potassium chlo ride (KLOR-CON M) extended release tablet 40 mEq Start: 09-24-2020 take 1 tablet by joan th once daily Potassium Chloride Elodia ER 20 MEQ Oral Tablet Extended Release Take 1 tablet by mouth daily Quantity: 90 Refills: 3 Ordered: 25-Oct-2020 Wing Ritter MD Start : 24-Sep-2020 Active Start: 10-06-2019 take 1 tablet by joan th once daily potassium chloride (KLOR-CON M) 20 MEQ extended release tablet TAKE 1 TABLET BY MOUTH DAILY 90 tablet 1 10/06/2019 Active Start: 05-19-2019 take 1 tablet by joan th once daily potassium chloride (KLOR-CON M) 20 MEQ extended release tablet Take 1 tablet by mouth daily 90 tablet 1 05/19/2019 Active Klor-Con 20 MEQ Oral Packet Refills: 0 Active sodium chloride flush 0.9 % injection 3 mL (2 sources) Start: 12-22-2021 sodium chlorid e flush 0.9 % injection 3 mL Start: 10-31-2021 sodium chlorid e flush 0.9 % injection 3 mL spironolactone 50 mg oral tablet (1 source) Aldosterone Antagonist Start: 08-24-2023 spironolactone (Aldactone) 50 MG tablet tamsulosin hydrochloride 0.4 mg oral capsule (11 sources) alpha-Adrenergic Danielle Start: 06-30-2023 tamsulosin (Flomax) 0.4 MG 24 hr capsule Start: 02-15-2022 End: 02-16-2023 take 1 capsule by mouth once daily tamsulosin (FLOMAX) 0.4 MG capsule Take 1 capsule by mouth daily 90 capsule 3 02/15/2022 02/16/2023 Active Start: 11-01-2021 take 1 capsule by mo [facility] once daily tamsulosin (FLOMAX) 0.4 MG capsule Take 1 capsule by mouth daily 30 capsule 0 11/01/2021 Active warfarin sodium 2.5 mg oral tablet (19 sources) Vitamin K Antagonist Start: 08-03-2023 warfarin (Coumadin) 2.5 MG tablet Start: 10-29-2021 take 1 tablet by joan once daily warfarin (COUMADIN) 6 MG tablet Take 1 tablet by mouth daily 30 tablet 3 10/29/2021 Active Start: 10-23-2021 End: 10-30-2021 warfarin (COUMADIN) tablet 7 .5 mg Start: 10-21-2021 warfarin (COUM [place]) tablet 5 mg Completed/Discontinued Medications Medication Drug Class(es) Dates Sig (Normalized) Sig (Original) albuterol 0.83 mg/ml inhalation solution (1 source) beta2-Adrenergic Agonist Start: 08-19-2021 take 2.5 mg by inhalation every six hours as needed albuterol (PROVENTIL) 2.5 mg /3 mL (0.083 %) nebulizer solution Use 3 mL via nebulizer every 6 hours as needed for wheezing/shortnes s of breath. 0 08/19/2021 Active Comment on above: Use 3 mL via nebuliz er every 6 hours as needed for wheezing/shortness of breath. aluminum hydroxide 40 mg/ml / magnesium hydroxide 40 mg/ml / simethicone 4 mg/ml oral suspension (1 source) Start: 10-21-2021 take 30 mL by mouth every six hours as needed 30 mL, Oral, EVERY 6 HOURS PRN, Starting on Sun10/21/21 at 0400, Until Discontinued, Indigestion amLODIPine 5 mg oral tablet (11 sources) Dihydropyridine Calcium Channel Danielle Start: 04-13-2020 take 1 tablet by mouth once daily amLODIPine Besylate 5 MG Oral Tablet TAKE 1 TABLET BY MOUTH ONCE A DAY. Quantity: 90 Refills: 3 Ordered: 15-Nov-2021 Wing Ritter MD Start : 13-Apr-2020 Active Antacid TABS (8 sources) Antacid TABS Quantity: 0 Refills: 0 Ordered: 06-Nov-2019 DO Active apixaban 5 mg oral tablet (2 sources) Factor Xa Inhibitor Start: 08-19-2021 End: 10-29-2021 take 1 tablet by mouth twice daily apixaban (ELIQUIS) 5 mg tab(s) 1 tablet by ORAL/FEEDING TUBE route twice daily. 0 08/19/2021 Active Comment on above: 1 tablet by ORAL/FEE DING TUBE route twice daily. aspirin 81 mg chewable tablet (1 source) Platelet Aggregation Inhibitor, Nonsteroidal Anti-inflammatory Drug Start: 08-14-2012 take 1 tablet by mouth once daily aspirin 81 mg chewable tablet Take 1 tablet by mouth once daily. 0 08/14/2012 Active Comment on above: Take 1 tablet by joan th once daily. calcium carbonate 500 mg chewable tablet (1 source) take 500 mg by mouth once daily calcium carbonate (TUMS) 500 mg chew Take 500 mg by mouth once daily. 0 Active Comment on above: Take 500 mg by mouth once daily. Calcium Carbonate / Cholecalciferol (1 source) Vitamin D take 1 tablet by mouth once daily Calcium-Cholecalc iferol, D3, (CALCIUM 500 + D) 500 mg(1,250mg) -400 unit per tablet Indications: Vertigo of central origin , Localized rash , Labyrinthine vestibulitis Take 1 tablet by mouth once daily. 0 Active Comment on above: Take 1 tablet by joan th once daily. 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 21 capsule 0 11/13/2019 Active Comment on above: Take 1 capsule by mo [facility] three times daily. Complete Multi-Vitamin CHEW (4 sources) Complete Multi-Vitamin CHEW Quantity: 0 Refills: 0 Ordered: 06-Nov-2019 DO Active Complete Multi-Vitamin Oral Tablet Chewable (4 sources) Complete Multi-Vitamin Oral Tablet Chewable Refills: 0 Active Complete Multi-V itamin Oral Tablet Chewable Refills: 0 DO Active Complete Multi-Vitamin Oral Tablet Chewable (6 sources) Complete Multi-V itamin Oral Tablet Chewable Quantity: 0 Refills: 0 Ordered: 06-Nov-2019 DO Active Complete Multi-V itamin Oral Tablet Chewable Refills: 0 Active docusate sodium 50 mg / sennosides, mcc 8.6 mg oral tablet (1 source) Start: 08-19-2021 take 1 tablet by mouth twice daily senna-docusate (SENNA-S) 8.6-50 mg per tablet 1 tablet by ORAL/FEEDING TUBE route twice daily. 0 08/19/2021 Active Comment on above: 1 tablet by ORAL/FEE DING TUBE route twice daily. 0.8 ml enoxaparin sodium 150 mg/ml prefilled syringe (1 source) Low Molecular Weight Heparin Start: 10-21-2021 End: 10-28-2021 105 mg (rounded from 108.9 mg = 1 mg/kg 108.9 kg), SubCUTAneous, 2 TIMES DAILY, First dose on Sun10/21/21 at 0900, Until Discontinued Indication of Use: Prophylaxis-DVT/PE famotidine 20 mg oral tablet (1 source) Histamine-2 Receptor Antagonist Start: 08-19-2021 take 1 tablet by mouth twice daily famotidine (PEPCID) 20 mg tablet Take 1 tablet by mouth twice daily. 0 08/19/2021 Active Comment on above: [facility] furosemide 40 mg oral tablet (2 sources) Loop Diuretic Start: 08-20-2021 End: 10-29-2021 take 1 tablet by mouth once daily furosemide (LASIX) 40 mg tablet Take 1 tablet by mouth once daily. 0 08/20/2021 Active Comment on above: Take 1 tablet by joan th once daily. Ginkgo biloba extract (1 source) GINKGO BILOBA (GINKOBA ORAL) Indications: Vertigo of central origin , Localized rash , Labyrinthine vestibulitis Take by mouth. 0 Active Comment on above: Take by mouth. glucagon (rdna) 1 mg injection (1 source) Antihypoglycemic Agent Start: 08-19-2021 glucagon 1 mg/mL injection Inject 1 mg intramuscularly as needed. 0 08/19/2021 Active Comment on above: Inject 1 mg intramus cularly as needed. glucose 0.4 mg/mg oral gel (2 sources) Start: 08-19-2021 dextrose 40 % gel Take 15 g by mouth as needed. 0 08/19/2021 Active Start: 08-19-2021 dextrose 50% i n water solution Inject 25 mL intravenously as needed. 0 08/19/2021 Active Comment on above: Take 15 g by mouth a s needed. Inject 25 mL intrave nously as needed. ibuprofen 200 mg oral capsule (14 sources) Nonsteroidal Anti-inflammatory Drug Ibuprofen 200 MG Ora l Capsule Quantity: 0 Refills: 0 Ordered: 06-Nov-2019 DO Active Ibuprofen 200 MG Oral Capsule Refills: 0 Active 3 ml insulin lispro 100 unt/ml pen injector (1 source) Insulin Analog Start: 08-19-2021 inject 4 [IU] by subcutaneous injection at bedtime insulin lispro (HUMALOG KWIKPEN) 100 unit/mL Inject 4 Units subcutaneously with meals and at bedtime. 0 08/19/2021 Active Comment on above: Inject 4 Units subcutaneously with meals and at bedtime. Polish Panax Ginseng 100 MG CAPS (8 sources) Polish Panax Ginseng 100 MG CAPS Quantity: 0 Refills: 0 Ordered: 06-Nov-2019 DO Active Polish Panax Ginseng 100 MG Oral Capsule (4 sources) Polish Panax Ginseng 100 MG Oral Capsule Refills: 0 Active Polish Panax Gin mayuri 100 MG Oral Capsule Refills: 0 DO Active Polish Panax Ginseng 100 MG Oral Capsule (2 sources) Polish Panax Gin mayuri 100 MG Oral Capsule Refills: 0 Active levETIRAcetam (KEPPRA) 1,000 mg in sodium chloride 0.9 % 100 mL IVPB (1 source) Star t: 10-06 End: 10-06 levETIRAcetam (KEPPRA) 1,000 mg in sodium chloride 0.9 % 100 mL IVPB 300 ml linezolid 2 mg/ml injection (1 source) Oxazolidinone Antibacterial Star t: 08-05 inject 300 mL intravenously every twelve hours linezolid (ZYVOX) 600 mg/300 mL in dextrose 5% Inject 300 mL intravenously every 12 hours. 0 08/19/2021 Active Comment on above: Inject 300 mL intrav enously every 12 hours. meclizine hydrochloride 25 mg oral tablet (1 source) Antiemetic Star t: 09-23 take 1 tablet by mouth three times daily as needed meclizine 25 mg Tab Indications: Vertigo of central origin , Localized rash , Labyrinthine vestibulitis Take 1 tablet by mouth three times daily as needed. 60 tablet 6 10/09/2012 Active Comment on above: Take 1 tablet by joan three times daily as needed. methylPREDNISolone (1 source) Corticosteroid Star t: 09-23 methylPREDNISolone (MEDROL, JADYN,) 4 mg tablet Indications: Vertigo of central origin , Localized rash , Labyrinthine vestibulitis take as instructed on package insert 1 Package 0 10/09/2012 Active Comment on above: take as instructed o n package insert modafinil 200 mg oral tablet (1 source) Sympathomimetic-lik e Agent Star t: 06-08 take 1 tablet by mouth once daily modafinil (PROVIGIL) 200 mg tablet 1 tablet by ORAL/FEEDING TUBE route once daily for 30 days. Do not start before June 29, 2021. 0 06/29/2021 Active Comment on above: 1 tablet by ORAL/FEE DING TUBE route once daily for 30 days. Do not start before June 29, 2021. oxyCODONE hydrochloride 5 mg oral tablet (1 source) Opioid Agonist Star t: 08-05 take 5-10 mg by mouth every six hours as needed oxyCODONE IR (ROXICODONE) 5 mg immediate release tablet 1-2 tablets by ORAL/FEEDING TUBE route every 6 hours as needed. 0 08/19/2021 Active Comment on above: 1-2 tablets by ORAL/ FEEDING TUBE route every 6 hours as needed. Pain Relief PM 500-25 MG TABS (14 sources) Pain Relief PM 5 00-25 MG TABS Quantity: 0 Refills: 0 Ordered: 06-Nov-2019 DO Active Pain Relief PM 5 00-25 MG TABS Refills: 0 Active Pain Relief PM 5 00-25 MG TABS Refills: 0 DO Active pediatric multivitamin plus minerals with iron chewable (MULTI-VITAMINS WITH IRON) chewable tablet (1 source) take 1 tablet by mouth once daily pediatric multivitamin plus minerals with iron chewable (MULTI-VITAMINS WITH IRON) chewable tablet Take 1 tablet by mouth once daily. 0 Active Comment on above: Take 1 tablet by ojan once daily. Pentoxifylline (1 source) Blood Viscosity Counter Intelligence Technician PENTOXIFYLLINE ORAL Take by mouth. 0 Active Comment on above: Take by mouth. petrolatum 0.41 mg/mg topical ointment (1 source) Start : 08-20 white petrolatum (AQUAPHOR) 41 % topical ointment Apply to affected area once daily. 0 08/20/2021 Active Comment on above: Apply to affected ar ea once daily. polyethylene glycol [id number] [id number] mg powder for oral solution (1 source) Osmotic Laxative Start : 10-21 17 g, Oral, DAILY PRN, Starting on Sun10/21/21 at 0356, Until Discontinued, Constipation First line therapy for constipation Potassium (1 source) POTASSIUM ORAL T samuel by mouth. 0 Active Comment on above: Take by mouth. prochlorperazine 5 mg/ml injectable solution (1 source) Phenothiazine Start : 08-19 take 5 mg intravenously every six hours as needed prochlorperazine (COMPAZINE) 10 mg/2 mL (5 mg/mL) soln injection Inject 5 mg intravenously every 6 hours as needed. 0 08/19/2021 Active Comment on above: Inject 5 mg intraven ously every 6 hours as needed. 5 ml sodium chloride 9 mg/ml injection (4 sources) Start : 10-21 take 1 dose intravenously twice daily 5-40 mL, IntraVENous, EVERY 12 HOURS SCHEDULED (2 times per day), First dose on Sun10/21/21 at 0900, Until Discontinued For Line Patency: Peripheral IV = 5 mL; Midline or Central Line = 10 mL/lumen. &n bsp;If following IV push medication, administer flush at same rate as the IV push. Flush volume is determined by type of infusion therapy being given. For non-viscous solutions use: Peripheral IV = 5 mL Midline or Central Line = 10 mL/lumen F or viscous solutions (i.e. blood components, parenteral nutrition, contrast media, or after obtaining blood sample) use: Peripheral IV = 10 mL Midline or Central Line = 20 mL/lumen Start: 10-21-2021 IntraVENous, a t 5-250 mL/hr, PRN, if patient receiving piggyback infusions and maintenance fluids are not ordered OR KVO fluids to protect IV site / prevent frequent line interruptions/ long duration, Starting on Sun10/21/21 at 0356 For piggyback infusion, administer at same rate as piggyback for a total of 25 mL. Enter 25 mL into dose field and piggyback rate into rate field of order. If piggyback is infusing at a rate less than 100 mL/hr, enter 25 mL into dose field and 100 mL/hr into rate field of order. For KVO fluids, enter rate of 20 mL/hr or less into rate field of order. Start: 10-21-2021 take 5-40 mL intrave nously once as needed 5-40 mL, IntraVENous, PRN, Starting on Sun10/21/21 at 0356, Until Discontinued, Line Care, After every IV line use For Line Patency: Peripheral IV = 5 mL; Midline or Central Line = 10 mL/lumen. If following IV push medication, administer flush at same rate as the IV push. Flush volume is determined by type of infusion therapy being given. For non-viscous solutions use: Peripheral IV = 5 mL Midline or Central Line = 10 mL/lumen For viscous solutions (i.e. blood components, parenteral nutrition, contrast media, or after obtaining blood sample) use: Peripheral IV = 10 mL Midline or Central Line = 20 mL/lumen Start: 08-19-2021 0.9 % sodium c hloride (NACL 0.9%) infusion Inject 5-30 mL/hr intravenously continuous. 0 08/19/2021 Active Comment on above: Inject 5-30 mL/hr intravenously continuo us. vitamin b12 1 mg oral tablet (1 source) Vitamin B12 Start: 2 take 1 tablet by mouth once daily cyanocobalamin (VITAMIN B-12) 1,000 mcg tab 1 tablet by ORAL/FEEDING TUBE route once daily. 30 tablet 0 06/29/2021 Active Comment on above: 1 tablet by ORAL/FEEDING TUBE route once daily. Problems Active Problems Problem Classification Problem Date Documented Da te Episodic/Chronic Allergic reactions (4 sources) Allergy status to narcotic agent status; Translations: [Allergy status to other drugs, medicaments and biological substances status] Onset: 12-22-2021 Episodic Asthma (16 sources) Asthma; Translations: [Asthma, unspecified type, unspecified] Onset: 10-21-2021 Chronic Calculus of urinary tract (15 sources) Kidney stone; Translations: [Calculus of kidney] Onset: 09-06-2023 08-13-2023 Episodic Chronic obstructive pulmonary disease and bronchiectasis (1 source) Chronic obstructive pulmonary disease, unspecified; Translations: [Chronic obstructive pulmonary disease, unspecified] Onset: 11-28-2023 Chronic Chronic ulcer of skin (14 sources) Chronic ulcer of skin of lower leg; Translations: [Ulcer of heel] Onset: 10-21-2021 Chronic Coagulation and hemorrhagic disorders (2 sources) Other thrombophilia; 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] Onset: 10-21-2021 Chronic Coma; stupor; and brain damage (14 sources) Coma; Translations: [Coma] Episodic Conditions associated with dizziness or vertigo (1 source) Acute labyrinthitis; Translations: [Labyrinthine vestibulitis] Onset: 10-09-2012 10-09-2012 Congestive heart failure; nonhypertensive (15 sources) Congestive heart failure; Translations: [Congestive heart failure, unspecified] Onset: 09-19-2024 Chronic Comment on above: CHF (congestive hear t failure); Deficiency and other anemia (1 source) Anemia in other chronic diseases classified elsewhere; Translations: [Anemia in other chronic diseases classified elsewhere] Onset: 01-09-2024 Chronic Deficiency and other anemia (2 sources) Anemia, unspecified; Translations: [Anemia, unspecified] Onset: 04-22-2024 Episodic Delirium, dementia, and amnestic and other cognitive disorders (6 sources) Alzheimer's disease, unspecified; Translations: [Dementia in other diseases classified elsewhere without behavioral disturbance] Onset: 10-21-2021 Chronic Disorders of lipid metabolism (15 sources) Hyperlipidemia; Translations: [Hyperlipidemia, unspecified] Onset: 10-05-2017 10-05-2017 Chronic E Codes: Fall (2 sources) Fall; Translations: [Unspecified fall, initial encounter] Onset: 05-29-2021 05-30-2021 Episodic Encephalitis (except that caused by tuberculosis or sexually transmitted disease) (1 source) Infective ventriculitis; Translations: [Unspecified viral encephalitis] Onset: 07-25-2021 08-19-2021 Episodic Epilepsy; convulsions (4 sources) Nonconvulsive status epilepticus; 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, unspecified, not intractable, with status epilepticus] Onset: 05-31-2021 06-17-2021 Chronic Essential hypertension (2 sources) Essential hypertension; Translations: [Essential (primary) hypertension] Onset: 05-31-2021 08-19-2021 Chronic Genitourinary symptoms and ill-defined conditions (1 source) Retention of urine; Translations: [Retention of urine, unspecified] Onset: 02-15-2022 02-15-2022 Episodic Hyperplasia of prostate (5 sources) Benign prostatic hypertrophy with outflow obstruction; Translations: [Benign prostatic hyperplasia with lower urinary tract symptoms] Onset: 02-15-2022 02-15-2022 Chronic Infective arthritis and osteomyelitis (except that caused by tuberculosis or sexually transmitted disease) (2 sources) Osteomyelitis, unspecified; Translations: [Osteomyelitis, unspecified] Onset: 12-22-2021 Chronic Malaise and fatigue (12 sources) Fatigue; Translations: [Chronic fatigue, unspecified] Onset: 03-10-2015 03-10-2015 Chronic Nutritional deficiencies (16 sources) Malnutrition (calorie); Translations: [Moderate protein-calorie malnutrition] Onset: 10-21-2021 Chronic Other aftercare (4 sources) [facility] (current) use of 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; Translations: [tank terminal gauger (current) use of 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] Onset: 10-21-2021 Episodic Other aftercare (1 source) Drug therapy finding; Translations: [tank terminal gauger (current) use of 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] Episodic Other circulatory disease (2 sources) Presence of other vascular implants and grafts; Translations: [Presence of other vascular implants and grafts] Onset: 10-21-2021 Chronic Other circulatory disease (2 sources) Presence of cardiac and vascular implant and graft, unspecified; Translations: [Presence of cardiac and vascular implant and graft, unsp] Onset: 10-31-2021 Chronic Other circulatory disease (1 source) H/O: heart failure; Translations: [Personal history of congestive heart failure] Episodic Other connective tissue disease (14 sources) Pain in lower limb; Translations: [Pain in limb] Episodic Other connective tissue disease (1 source) Muscle pain; Translations: [History of Myalgia] Episodic Other connective tissue disease (1 source) Swelling of lower limb; Translations: [Other specified soft tissue disorders] Episodic Other diseases of kidney and ureters (2 sources) Other obstructive and reflux uropathy; Translations: [Other obstructive and reflux uropathy] Onset: 08-13-2023 Episodic Other gastrointestinal disorders (1 source) Altered bowel function; Translations: [Other specified symptoms and signs involving the digestive system and abdomen] Onset: 07-25-2021 07-25-2021 Episodic Other liver diseases (2 sources) Other specified diseases of liver; Translations: [Other specified diseases of liver] Onset: 10-21-2021 Chronic Other male genital disorders (2 sources) Impotence Onset: 01-26-2016 01-26-2016 Chronic Other male genital disorders (12 sources) Male erectile dysfunction, unspecified; Translations: [Impotence of organic origin] Onset: 01-26-2016 01-26-2016 Chronic Other male genital disorders (1 source) Disorder of prostate; Translations: [Disorder of prostate, unspecified] 08-13-2023 Episodic Other male genital disorders (2 sources) Disorder of prostate, unspecified; Translations: [Disorder of prostate, unspecified] Onset: 08-13-2023 Episodic Other nervous system disorders (20 sources) Hydrocephalus; Translations: [Obstructive hydrocephalus] Onset: 01-26-2016 01-26-2016 Chronic Comment on above: Hydrocephalus; Other nervous system disorders (14 sources) Neuropathy; Translations: [Polyneuropathy, unspecified] Onset: 01-26-2016 01-26-2016 Chronic Other nervous system disorders (1 source) H/O: major vascular surgery; Translations: [Presence of cerebrospinal fluid drainage device] Onset: 05-31-2021 08-19-2021 Chronic Other nervous system disorders (1 source) Disorder of brain; Translations: [Encephalopathy, unspecified] Onset: 06-11-2021 07-30-2021 Chronic Other nervous system disorders (1 source) Mass lesion of brain; Translations: [Other specified disorders of brain] Onset: 07-08-2021 07-09-2021 Chronic Other nervous system disorders (2 sources) Hydrocephalus, unspecified; Translations: [Hydrocephalus, unspecified] Onset: 10-21-2021 Chronic Other nervous system disorders (2 sources) Polyneuropathy, unspecified; Translations: [Polyneuropathy, unspecified] Onset: 10-21-2021 Chronic Other nervous system disorders (3 sources) Presence of cerebrospinal fluid drainage device; Translations: [Presence of cerebrospinal fluid drainage device] Onset: 10-21-2021 Chronic Other nervous system disorders (2 sources) Encephalopathy, unspecified; Translations: [Encephalopathy, unspecified] Onset: 01-17-2024 Chronic Other nervous system disorders (1 source) H/O: brain disorder; Translations: [Personal history of hydrocephalus] Episodic Other nervous system disorders (14 sources) H/O: vertigo; Translations: [Personal history of other disorders of nervous system and sense organs] Episodic Other nutritional; endocrine; and metabolic disorders (14 sources) Morbid obesity; Translations: [Morbid (severe) obesity due to excess calories] Onset: 05-19-2019 05-19-2019 Chronic Other nutritional; endocrine; and metabolic disorders (10 sources) Body mass index 40+ - severely obese; Translations: [Morbid obesity] Chronic Comment on above: Morbid obesity with BMI of 40.0-44.9, adult; Other nutritional; endocrine; and metabolic disorders (1 source) Hypophosphatemia; Translations: [Other disorders of phosphorus metabolism] Onset: 06-14-2021 06-14-2021 Chronic Other nutritional; endocrine; and metabolic disorders (1 source) Obese class II; Translations: [Obesity, unspecified] Onset: 06-16-2021 06-16-2021 Chronic Other nutritional; endocrine; and metabolic disorders (1 source) Severe obesity; Translations: [Morbid (severe) obesity due to excess calories] Onset: 07-09-2021 08-19-2021 Chronic Other nutritional; endocrine; and metabolic disorders (2 sources) Obesity, unspecified; Translations: [Obesity, unspecified] Onset: 10-21-2021 Chronic Other nutritional; endocrine; and metabolic disorders (2 sources) Body mass index (BMI) 37.0-37.9, adult; Translations: [Body mass index [BMI] 37.0-37.9, adult] Onset: 10-21-2021 Chronic Other screening for suspected conditions (not mental disorders or infectious disease) (9 sources) CT of chest abnormal; Translations: [Nonspecific (abnormal) findings on radiological and other examination of other intrathoracic organs] Chronic Comment on above: 02/28/2013; Other screening for suspected conditions (not mental disorders or infectious disease) (20 sources) CT of abdomen abnormal; Translations: [Patient encounter status] Episodic Comment on above: 02/28/2013; Phlebitis; thrombophlebitis and thromboembolism (3 sources) 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 The left ventricular systolic function is normal with a 60-65% estimated ejection fraction. Spectral Doppler shows an impaired relaxation pattern of left ventricular diastolic filling. RVSP within normal limits.; Respiratory failure; insufficiency; arrest (adult) (2 sources) Ventilator finding; Translations: [Dependence on respirator [ventilator] status] Onset: 01-26-2022 02-11-2022 Chronic Screening and history of mental health and substance abuse codes (4 sources) Personal history of nicotine dependence; Translations: [Personal history of nicotine dependence] Onset: 10-21-2021 Episodic Unclassified (2 sources) Acute embolism and thrombosis of right peroneal vein; Translations: [Acute embolism and thrombosis of right peroneal vein] Onset: 10-21-2021 Unclassified (2 sources) Acute embolism and thrombosis of calf muscular vein, bilateral; Translations: [Acute embolism and thombos of calf muscular vein, bilateral] Onset: 10-21-2021 Unclassified (2 sources) Contact with and (suspected) exposure to COVID-19; Translations: [Contact with and (suspected) exposure to COVID-19] Onset: 10-21-2021 Unclassified (1 source) Cough, unspecified; Translations: [Cough, unspecified] Onset: 01-09-2024 Past or Other Problems Problem Classification Problem Date Documented Da te Episodic/Chronic Abdominal pain (20 sources) Flank pain; Translations: [Unspecified abdominal pain] Onset: 03-10-2015 03-10-2015 Episodic Acquired foot deformities (2 sources) Foot drop, left foot; Translations: [Foot drop, left foot] Onset: 10-21-2021 Episodic Acquired foot deformities (2 sources) Foot drop, right foot; Translations: [Foot drop, right foot] Onset: 10-21-2021 Episodic Acute and unspecified renal failure (1 source) Acute injury of kidney; Translations: [Acute kidney failure, unspecified] Onset: 06-14-2021 06-14-2021 Episodic Administrative/social admission (2 sources) Bed confinement status; Translations: [Bed confinement status] Onset: 10-21-2021 Episodic Complication of device; implant or graft (11 sources) Complication of urinary catheter; Translations: [Unspecified complication of genitourinary prosthetic device, implant and graft, initial encounter] Onset: 11-01-2021 11-01-2021 Episodic Conditions associated with dizziness or vertigo (3 sources) Vertigo of central origin; Translations: [Vertigo of central origin] Onset: 10-09-2012 10-09-2012 Episodic Deficiency and other anemia (1 source) Normocytic normochromic anemia; Translations: [Anemia, unspecified] Onset: 06-14-2021 06-14-2021 Episodic Epilepsy; convulsions (2 sources) Unspecified convulsions; Translations: [Unspecified convulsions] Onset: 10-31-2021 Episodic Fluid and electrolyte disorders (5 sources) Hypernatremia; Translations: [Hyperosmolality and hypernatremia] Onset: 06-14-2021 06-17-2021 Episodic Malaise and fatigue (5 sources) Fatigue; Translations: [Other fatigue] Onset: 03-10-2015 03-10-2015 Episodic Mycoses (2 sources) Tinea unguium; Translations: [Tinea unguium] Onset: 10-21-2021 Episodic Open wounds of extremities (7 sources) Injury of left leg; Translations: [Unspecified open wound, left lower leg, initial encounter] Onset: 05-19-2019 02-16-2022 Episodic Other aftercare (2 sources) Other 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 (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; Translations: [Other 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 (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] Onset: 06-02-2024 Episodic Other circulatory disease (2 sources) Personal history of transient ischemic attack (TIA), and cerebral infarction without residual deficits; Translations: [Prsnl hx of TIA (TIA), and cereb infrc w/o resid deficits] Onset: 10-21-2021 Episodic Other connective tissue disease (14 sources) Nocturnal muscle spasm ; Translations: [Other muscle spasm] Onset: 03-10-2015 03-10-2015 Episodic Other connective tissue disease (7 sources) Disorder of lower extremity; Translations: [Unspecified open wound, left lower leg, initial encounter] Onset: 05-19-2019 05-19-2019 Episodic Other diseases of veins and lymphatics (1 source) Vascular insufficiency; Translations: [Venous insufficiency (chronic) (peripheral)] Onset: 05-29-2021 05-30-2021 Episodic Other diseases of veins and lymphatics (2 sources) Venous insufficiency (chronic) (peripheral); Translations: [Venous insufficiency (chronic) (peripheral)] Onset: 10-21-2021 Episodic Other diseases of veins and lymphatics (2 sources) Other specified disorders of veins; Translations: [Other specified disorders of veins] Onset: 10-21-2021 Episodic Other eye disorders (1 source) Downward gaze deviation; Translations: [Other specified disorders of binocular movement] Onset: 06-10-2021 08-19-2021 Episodic Other gastrointestinal disorders (1 source) Retroperitoneal hematoma; Translations: [Hemoperitoneum] Onset: 06-11-2021 06-17-2021 Episodic Other gastrointestinal disorders (1 source) Dysphagia; Translations: [Dysphagia, unspecified] Onset: 07-09-2021 07-09-2021 Episodic Other gastrointestinal disorders (2 sources) Flatulence; Translations: [Flatulence] Onset: 10-31-2021 Episodic Other skin disorders (2 sources) Eruption; Translations: [Rash and other nonspecific skin eruption] Onset: 10-09-2012 10-09-2012 Episodic Phlebitis; thrombophlebitis and thromboembolism (20 sources) Bilateral acute deep vein thrombosis of femoral veins; Translations: [Acute embolism and thrombosis of femoral vein, bilateral] Onset: 06-15-2021 06-17-2021 Episodic Pulmonary heart disease (17 sources) H/O: pulmonary embolus; Translations: [Personal history of pulmonary embolism] Onset: 10-21-2021 Episodic Residual codes; unclassified (15 sources) Swelling - edema - symptom; Translations: [Edema] Onset: 07-13-2017 07-13-2017 Episodic Residual codes; unclassified (1 source) Disorientated; Translations: [Disorientation, unspecified] Onset: 05-30-2021 05-30-2021 Episodic Residual codes; unclassified (1 source) Altered mental status; Translations: [Altered mental status, unspecified] Onset: 05-30-2021 05-31-2021 Episodic Residual codes; unclassified (13 sources) History of clinical finding in subject; Translations: [Personal history of other specified conditions] Onset: 10-26-2021 Episodic Residual codes; unclassified (13 sources) Edema; Translations: [Edema] Onset: 07-13-2017 07-13-2017 Episodic Residual codes; unclassified (2 sources) Altered mental status, unspecified; Translations: [Altered mental status, unspecified] Onset: 10-31-2021 Episodic Respiratory failure; insufficiency; arrest (adult) (1 source) Acute hypoxemic respiratory failure; Translations: [Acute respiratory failure with hypoxia] Onset: 06-01-2021 07-30-2021 Episodic Unclassified (4 sources) Patient encounter status; Translations: [Screening cholesterol level] Unclassified (3 sources) Abnormal findings on diagnostic imaging of other specified body structures; Translations: [History of Abnormal CT of the chest] Unclassified (2 sources) Contact with and (suspected) exposure to COVID-19; Translations: [Contact with and (suspected) exposure to COVID-19] Onset: 10-21-2021 NEGATED: Highlighted row has not occurred!Residual codes; unclassified (20 sources) Disease Episodic Results Test Name Value Interpretation Reference Range Facility Prothrombin Time w/INRon INR Coag (PPP) [Relative time] 1.9 {INR} Normal [facility] Comment on above: Order Comment: 411-2 Performed By: #### L 300.3900 ####[facility] [address] [place], [address] PT Coag (PPP) [Time] 22.4 s High 11.7-14.9 [facility] Comment on above: Order Comment: 411-2 Performed By: #### L 300.3900 ####[facility] [address] [place], [address] Prothrombin Time w/INRon INR Coag (PPP) [Relative time] 3.0 {INR} Normal [facility] Comment on above: Order Comment: 411.2 Performed By: #### L 300.3900 ####[facility] [address] [place], [address] PT Coag (PPP) [Time] 31.8 s High 11.7-14.9 [facility] Comment on above: Order Comment: 411.2 Performed By: #### L 300.3900 ####[facility] [address] [place], [address] Prothrombin Time w/INRon INR Coag (PPP) [Relative time] 2.7 {INR} Normal [facility] Comment on above: Order Comment: 411-2 Performed By: #### L 300.3900 ####[facility] [address] [place], [address] PT Coag (PPP) [Time] 29.6 s High 11.7-14.9 [facility] Comment on above: Order Comment: 411-2 Performed By: #### L 300.3900 ####[facility] [address] [place], [address] International normalized rat io (INR) calculationOrdered By: Karon Corrales on 10-02-2024 INR Coag (Bld) [Relative time] 2.3 {INR} [facility] Prothrombin Time w/INRon INR Coag (PPP) [Relative time] 2.3 {INR} Normal [facility] Comment on above: Order Comment: 411.2 Performed By: #### L 300.3900 ####[facility] [address] [place], [address] PT Coag (PPP) [Time] 26.0 s High 11.7-14.9 [facility] Comment on above: Order Comment: 411.2 Performed By: #### L 300.3900 ####[facility] [address] [place], [address] Prothrombin timeOrdered By: Karon Corrales on 10-02-2024 PT Coag (PPP) [Time] 26.0 s High 11.7-14.9 [facility] International normalized rat io (INR) calculationOrdered By: Karon Corrales on 09-30-2024 INR Coag (Bld) [Relative time] 3.1 {INR} [facility] Prothrombin Time w/INRon INR Coag (PPP) [Relative time] 3.1 {INR} Normal [facility] Comment on above: Order Comment: 411.2 Performed By: #### L 300.3900 ####[facility] [address] [place], [address] PT Coag (PPP) [Time] 32.6 s High 11.7-14.9 [facility] Comment on above: Order Comment: 411.2 Performed By: #### L 300.3900 ####[facility] [address] [place], [place], [phone] Prothrombin timeOrdered By: Karon Corrales on 09-30-2024 PT Coag (PPP) [Time] 32.6 s High 11.7-14.9 [facility] International normalized rat io (INR) calculationOrdered By: Karon Corrales on 09-25-2024 INR Coag (Bld) [Relative time] 2.4 {INR} [facility] Prothrombin Time w/INRon INR Coag (PPP) [Relative time] 2.4 {INR} Normal [facility] Comment on above: Order Comment: 411.2 Performed By: #### L 300.3900 ####[facility] [address] [place], [place], [phone] Prothrombin timeOrdered By: Karon Corrales on 09-25-2024 PT Coag (PPP) [Time] 26.7 s High 11.7-14.9 [facility] Comment on above: Order Comment: 411.2 Performed By: #### L 300.3900 ####[facility] [address] [place], [place], [id number] International normalized rat io (INR) calculationOrdered By: Karon Corrales on 09-22-2024 INR Coag (Bld) [Relative time] 2.5 {INR} [facility] Prothrombin Time w/INRon INR Coag (PPP) [Relative time] 2.5 {INR} Normal [facility] Comment on above: Order Comment: 411.2 Performed By: #### L 300.3900 ####[facility] [address] [place], [place], [phone] Prothrombin timeOrdered By: Karon Corrales on 05-19-2025 PT Coag (PPP) [Time] 27.4 s High 11.7-14.9 [facility] Comment on above: Order Comment: 411.2 Performed By: #### L 300.3900 ####[facility] [address] [place], [place], [phone] International normalized rat io (INR) calculationOrdered By: Karon Corrales on 09-18-2024 INR Coag (Bld) [Relative time] 2.2 {INR} [facility] Prothrombin Time w/INRon INR Coag (PPP) [Relative time] 2.2 {INR} Normal [facility] Comment on above: Order Comment: 411.2 Performed By: #### L 300.3900 ####[facility] [address] [place], [place], [phone] PT Coag (PPP) [Time] 25.1 s High 11.7-14.9 [facility] Comment on above: Order Comment: 411.2 Performed By: #### L 300.3900 ####[facility] [address] [place], [address] Prothrombin timeOrdered By: Karon Corrales on 09-18-2024 PT Coag (PPP) [Time] 25.1 s High 11.7-14.9 [facility] International normalized rat io (INR) calculationOrdered By: Carlos Cavazos on 09-15-2024 INR Coag (Bld) [Relative time] 2.4 {INR} [facility] Prothrombin Time w/INRon INR Coag (PPP) [Relative time] 2.4 {INR} Normal [facility] Comment on above: Order Comment: 411-2 Performed By: #### L 300.3900 ####[facility] [address] [place], [address] Prothrombin timeOrdered By: Carlos Cavazos on 09-15-2024 PT Coag (PPP) [Time] 26.3 s High 11.7-14.9 [facility] Comment on above: Order Comment: 411-2 Performed By: #### L 300.3900 ####[facility] [address] [place], [phone] International normalized rat io (INR) calculationOrdered By: Karon Corrales on 09-11-2024 INR Coag (Bld) [Relative time] 2.0 {INR} [facility] Prothrombin Time w/INRon INR Coag (PPP) [Relative time] 2.0 {INR} Normal [facility] Comment on above: Order Comment: 411.2 Performed By: #### L 300.3900 ####[facility] [address], [address] PT Coag (PPP) [Time] 22.9 s High 11.7-14.9 [facility] Comment on above: Order Comment: 411.2 Performed By: #### L 300.3900 ####[facility] [address] [place], [address] Prothrombin timeOrdered By: Karon Corrales on 09-11-2024 PT Coag (PPP) [Time] 22.9 s High 11.7-14.9 [facility] International normalized rat io (INR) calculationOrdered By: Karon Corrales on 09-08-2024 INR Coag (Bld) [Relative time] 2.0 {INR} [facility] Prothrombin Time w/INRon INR Coag (PPP) [Relative time] 2.0 {INR} Normal [facility] Comment on above: Order Comment: 411.2 Performed By: #### L 300.3900 ####[facility] [address] [place], [address] PT Coag (PPP) [Time] 22.8 s High 11.7-14.9 [facility] Comment on above: Order Comment: 411.2 Performed By: #### L 300.3900 ####[facility] [address] [place], [place], [phone] Prothrombin timeOrdered By: Karon Corrales on 09-08-2024 PT Coag (PPP) [Time] 22.8 s High 11.7-14.9 [facility] International normalized rat io (INR) calculationOrdered By: Carlos Cavazos on 09-04-2024 INR Coag (Bld) [Relative time] 1.7 {INR} [facility] Prothrombin Time w/INRon INR Coag (PPP) [Relative time] 1.7 {INR} Normal [facility] Comment on above: Order Comment: 411-2 Performed By: #### L 300.3900 ####[facility] [address] [place], [place], [phone] PT Coag (PPP) [Time] 20.8 s High 11.7-14.9 [facility] Comment on above: Order Comment: 411-2 Performed By: #### L 300.3900 ####[facility] [address] [place], [address] Prothrombin timeOrdered By: Carlos Cavazos on 09-04-2024 PT Coag (PPP) [Time] 20.8 s High 11.7-14.9 [facility] International normalized rat io (INR) calculationOrdered By: Carlos Cavazos on 09-01-2024 INR Coag (Bld) [Relative time] 2.9 {INR} [facility] Prothrombin Time w/INRon INR Coag (PPP) [Relative time] 2.9 {INR} Normal [facility] Comment on above: Order Comment: 411-2 Performed By: #### L 300.3900 ####[facility] [address] [place], [address]([phone] PT Coag (PPP) [Time] 30.7 s High 11.7-14.9 [facility] Comment on above: Order Comment: 411-2 Performed By: #### L 300.3900 ####[facility] [address] [place], [address] Prothrombin timeOrdered By: Carlos Cavazos on 09-01-2024 PT Coag (PPP) [Time] 30.7 s High 11.7-14.9 [facility] International normalized rat io (INR) calculationOrdered By: Carlos Cavazos on 08-28-2024 INR Coag (Bld) [Relative time] 2.4 {INR} [facility] Prothrombin Time w/INRon INR Coag (PPP) [Relative time] 2.4 {INR} Normal [facility] Comment on above: Order Comment: 411-2 Performed By: #### L 300.3900 ####[facility] [address] [place], [address] Prothrombin timeOrdered By: Carlos Cavazos on 08-28-2024 PT Coag (PPP) [Time] 26.7 s High 11.7-14.9 [facility] Comment on above: Order Comment: 411-2 Performed By: #### L 300.3900 ####[facility] [address], [address] International normalized rat io (INR) calculationOrdered By: Karon Corrales on 08-25-2024 INR Coag (Bld) [Relative time] 1.8 {INR} [facility] Prothrombin Time w/INRon INR Coag (PPP) [Relative time] 1.8 {INR} Normal [facility] Comment on above: Order Comment: 411.2 Performed By: #### L 300.3900 ####[facility] [address] [place], [address] PT Coag (PPP) [Time] 21.6 s High 11.7-14.9 [facility] Comment on above: Order Comment: 411.2 Performed By: #### L 300.3900 ####[facility] [address] [place], [address] Prothrombin timeOrdered By: Karon Corrales on 08-25-2024 PT Coag (PPP) [Time] 21.6 s High 11.7-14.9 [facility] International normalized rat io (INR) calculationOrdered By: Karon Corrales on 08-21-2024 INR Coag (Bld) [Relative time] 1.7 {INR} [facility] PSA, total screeningOrdered By: Karon Corrales on 08-21-2024 Prostate Specific Antigen Screen 0.52 ng/mL 0.02-4.00 [facility] Comment on above: This test was perfor med using the [employer] tPSA method. Measured values of a patient sample can vary depending on the testing procedure used. PSA values determined on patient samples by different testing procedures cannot be used interchangeably. If there is a change in PSA assays while monitoring therapy, sequential testing should be performed to confirm baseline values. PSA,Total - Annual Screenon 08-21-2024 PSA,TOT SCREEN 0.52 ng/mL Normal 0.02-4.00 [facility] Comment on above: Order Comment: 411.2 Result Comment: This test was performed using the [employer] tPSAmethod. Measured values of a patient??sample can varydepending on the testing procedure used. PSA valuesdetermined on patient samples by different testingprocedures cannot be used interchangeably. If there is achange in PSA assays while monitoring therapy, sequentialtesting should be performed to confirm baseline values. Performed By: #### L 501.9910, L300.3900 ####[facility] [address] [place], [address] Prothrombin Time w/INRon INR Coag (PPP) [Relative time] 1.7 {INR} Normal [facility] Comment on above: Order Comment: 411.2 Performed By: #### L 501.9910, L300.3900 ####[facility] [address] [place], [address] Prothrombin timeOrdered By: Karon Corrales on 08-21-2024 PT Coag (PPP) [Time] 20.1 s High 11.7-14.9 [facility] Comment on above: Order Comment: 411.2 Performed By: #### L 501.9910, L300.3900 ####[facility] [address] [place], [place], [phone] International normalized rat io (INR) calculationOrdered By: Karon Corrales on 08-18-2024 INR Coag (Bld) [Relative time] 3.0 {INR} [facility] Prothrombin Time w/INRon INR Coag (PPP) [Relative time] 3.0 {INR} Normal [facility] Comment on above: Order Comment: 411.2 Performed By: #### L 300.3900 ####[facility] [address] [place], [place], [address](035) PT Coag (PPP) [Time] 31.4 s High 11.7-14.9 [facility] Comment on above: Order Comment: 411.2 Performed By: #### L 300.3900 ####[facility] [address] [place], [address] Prothrombin timeOrdered By: Karon Corrales on 08-18-2024 PT Coag (PPP) [Time] 31.4 s High 11.7-14.9 [facility] International normalized rat io (INR) calculationOrdered By: Karon Corrales on 08-14-2024 INR Coag (Bld) [Relative time] 2.4 {INR} [facility] Prothrombin Time w/INRon INR Coag (PPP) [Relative time] 2.4 {INR} Normal [facility] Comment on above: Order Comment: 411.2 Performed By: #### L 300.3900 ####[facility] [address] [place], [place], [phone] PT Coag (PPP) [Time] 26.6 s High 11.7-14.9 [facility] Comment on above: Order Comment: 411.2 Performed By: #### L 300.3900 ####[facility] [address] [place], [place], [phone] Prothrombin timeOrdered By: Karon Corrales on 08-14-2024 PT Coag (PPP) [Time] 26.6 s High 11.7-14.9 [facility] International normalized rat io (INR) calculationOrdered By: Karon Corrales on 08-11-2024 INR Coag (Bld) [Relative time] 3.1 {INR} [facility] Prothrombin Time w/INRon INR Coag (PPP) [Relative time] 3.1 {INR} Normal [facility] Comment on above: Order Comment: 411.2 Performed By: #### L 300.3900 ####[facility] [address] [place], [place], [address] PT Coag (PPP) [Time] 32.4 s High 11.7-14.9 [facility] Comment on above: Order Comment: 411.2 Performed By: #### L 300.3900 ####[facility] [address] [place], [place], [address] Prothrombin timeOrdered By: Karon Corrales on 08-11-2024 PT Coag (PPP) [Time] 32.4 s High 11.7-14.9 [facility] International normalized rat io (INR) calculationOrdered By: Carlos Cavazos on 08-07-2024 INR Coag (Bld) [Relative time] 2.8 {INR} [facility] Prothrombin Time w/INRon INR Coag (PPP) [Relative time] 2.8 {INR} Normal [facility] Comment on above: Order Comment: 411-2 Performed By: #### L 300.3900 ####[facility] [address] [place], [place], [phone] PT Coag (PPP) [Time] 30.3 s High 11.7-14.9 [facility] Comment on above: Order Comment: 411-2 Performed By: #### L 300.3900 ####[facility] [address] [place], [place], [phone] Prothrombin timeOrdered By: Carlos Cavazos on 08-07-2024 PT Coag (PPP) [Time] 30.3 s High 11.7-14.9 [facility] International normalized rat io (INR) calculationOrdered By: Carlos Cavazos on 08-04-2024 INR Coag (Bld) [Relative time] 1.9 {INR} [facility] Prothrombin Time w/INRon INR Coag (PPP) [Relative time] 1.9 {INR} Normal [facility] Comment on above: Order Comment: 411-2 Performed By: #### L 300.3900 ####[facility] [address], [address] PT Coag (PPP) [Time] 22.1 s High 11.7-14.9 [facility] Comment on above: Order Comment: 411-2 Performed By: #### L 300.3900 ####[facility] [address] [place], [place], [phone] Prothrombin timeOrdered By: Carlos Cavazos on 08-04-2024 PT Coag (PPP) [Time] 22.1 s High 11.7-14.9 [facility] International normalized rat io (INR) calculationOrdered By: Karon Corrales on 07-31-2024 INR Coag (Bld) [Relative time] 3.2 {INR} [facility] Prothrombin Time w/INRon INR Coag (PPP) [Relative time] 3.2 {INR} Normal [facility] Comment on above: Order Comment: 411.2 Performed By: #### L 300.3900 ####[facility] [address] [place], [place], [phone]) PT Coag (PPP) [Time] 33.5 s High 11.7-14.9 [facility] Comment on above: Order Comment: 411.2 Performed By: #### L 300.3900 ####[facility] [address] [place], [place], [phone] Prothrombin timeOrdered By: Karon Corrales on 07-31-2024 PT Coag (PPP) [Time] 33.5 s High 11.7-14.9 [facility] International normalized rat io (INR) calculationOrdered By: Karon Corrales on 07-28-2024 INR Coag (Bld) [Relative time] 2.7 {INR} [facility] Prothrombin Time w/INRon INR Coag (PPP) [Relative time] 2.7 {INR} Normal [facility] Comment on above: Order Comment: 411.2 Performed By: #### L 300.3900 ####[facility] [address] [place], [place], [phone]([phone]) PT Coag (PPP) [Time] 29.6 s High 11.7-14.9 [facility] Comment on above: Order Comment: 411.2 Performed By: #### L 300.3900 ####[facility] [address] [place], [place], [phone] Prothrombin timeOrdered By: Karon Corrales on 07-28-2024 PT Coag (PPP) [Time] 29.6 s High 11.7-14.9 [facility] International normalized rat io (INR) calculationOrdered By: Carlos Cavazos on 07-25-2024 INR Coag (Bld) [Relative time] 3.0 {INR} [facility] Prothrombin Time w/INRon INR Coag (PPP) [Relative time] 3.0 {INR} Normal [facility] Comment on above: Order Comment: 411-2 Performed By: #### L 300.3900 ####[facility] [address] [place], [place], [phone] Prothrombin timeOrdered By: Carlos Cavazos on 07-25-2024 PT Coag (PPP) [Time] 32.1 s High 11.7-14.9 [facility] Comment on above: Order Comment: 411-2 Performed By: #### L 300.3900 ####[facility] [address] [place], [address] International normalized rat io (INR) calculationOrdered By: Karon Corrales on 07-24-2024 INR Coag (Bld) [Relative time] 3.4 {INR} [facility] Prothrombin Time w/INRon INR Coag (PPP) [Relative time] 3.4 {INR} Normal [facility] Comment on above: Order Comment: 411.2 Performed By: #### L 300.3900 ####[facility] [address] [place], [place], [phone] Prothrombin timeOrdered By: Karon Corrales on 07-24-2024 PT Coag (PPP) [Time] 35.4 s High 11.7-14.9 [facility] Comment on above: Order Comment: 411.2 Performed By: #### L 300.3900 ####[facility] [address] [place], [address] International normalized rat io (INR) calculationOrdered By: Karon Corrales on 07-21-2024 INR Coag (Bld) [Relative time] 1.6 {INR} [facility] Prothrombin Time w/INRon INR Coag (PPP) [Relative time] 1.6 {INR} Normal [facility] Comment on above: Order Comment: 411.2 Performed By: #### L 300.3900 ####[facility] [address] [place], [address] PT Coag (PPP) [Time] 19.6 s High 11.7-14.9 [facility] Comment on above: Order Comment: 411.2 Performed By: #### L 300.3900 ####[facility] [address] [place], [place], [phone] Prothrombin timeOrdered By: Karon Corrales on 07-21-2024 PT Coag (PPP) [Time] 19.6 s High 11.7-14.9 [facility] International normalized rat io (INR) calculationOrdered By: Karon Corrales on 07-17-2024 INR Coag (Bld) [Relative time] 2.9 {INR} [facility] Prothrombin Time w/INRon INR Coag (PPP) [Relative time] 2.9 {INR} Normal [facility] Comment on above: Order Comment: 411.2 Performed By: #### L 300.3900 ####[facility] [address], [address] PT Coag (PPP) [Time] 31.1 s High 11.7-14.9 [facility] Comment on above: Order Comment: 411.2 Performed By: #### L 300.3900 ####[facility] [address] [place], [place], [phone] Prothrombin timeOrdered By: Karon Corrales on 07-17-2024 PT Coag (PPP) [Time] 31.1 s High 11.7-14.9 [facility] International normalized rat io (INR) calculationOrdered By: Carlos Cavazos on 07-14-2024 INR Coag (Bld) [Relative time] 2.5 {INR} [facility] Prothrombin Time w/INRon INR Coag (PPP) [Relative time] 2.5 {INR} Normal [facility] Comment on above: Order Comment: 411-2 Performed By: #### L 300.3900 ####[facility] [address], [address] PT Coag (PPP) [Time] 27.5 s High 11.7-14.9 [facility] Comment on above: Order Comment: 411-2 Performed By: #### L 300.3900 ####[facility] [address] [place], [address] Prothrombin timeOrdered By: Carlos Cavazos on 07-14-2024 PT Coag (PPP) [Time] 27.5 s High 11.7-14.9 [facility] International normalized rat io (INR) calculationOrdered By: Carlos Cavazos on 07-11-2024 INR Coag (Bld) [Relative time] 2.5 {INR} [facility] Prothrombin Time w/INRon INR Coag (PPP) [Relative time] 2.5 {INR} Normal [facility] Comment on above: Performed By: #### L 300.3900 ####[facility] [address] [place], [address] PT Coag (PPP) [Time] 27.7 s High 11.7-14.9 [facility] Comment on above: Performed By: #### L 300.3900 ####[facility] [address] [place], [address] Prothrombin timeOrdered By: Carlos Cavazos on 07-11-2024 PT Coag (PPP) [Time] 27.7 s High 11.7-14.9 [facility] Prothrombin Time w/INRon INR Normal [facility] Comment on above: Order Comment: 411.2 Result Comment: QNS TUBE NOT FILLED Performed By: #### L 300.3900 ####[facility] [address] [place], [address] PROTIME Normal 11.7-14.9 [facility] Comment on above: Order Comment: 411.2 Result Comment: QNS TUBE NOT FILLED Performed By: #### L 300.3900 ####[facility] [address] [place], [address] International normalized rat io (INR) calculationOrdered By: Kvng Crisostomo on 07-07-2024 INR Coag (Bld) [Relative time] 2.5 {INR} [facility] Prothrombin Time w/INRon INR Coag (PPP) [Relative time] 2.5 {INR} Normal [facility] Comment on above: Order Comment: 411.2 Performed By: #### L 300.3900 ####[facility] [address] [place], [address] PT Coag (PPP) [Time] 27.2 s High 11.7-14.9 [facility] Comment on above: Order Comment: 411.2 Performed By: #### L 300.3900 ####[facility] [address] [place], [address] Prothrombin timeOrdered By: Kvng Crisostomo on 07-07-2024 PT Coag (PPP) [Time] 27.2 s High 11.7-14.9 [facility] International normalized rat io (INR) calculationOrdered By: Kvng Crisostomo on 07-03-2024 INR Coag (Bld) [Relative time] 2.5 {INR} [facility] Prothrombin Time w/INRon INR Coag (PPP) [Relative time] 2.5 {INR} Normal [facility] Comment on above: Order Comment: 411.2 Performed By: #### L 300.3900 ####[facility] [address] [place], [address] PT Coag (PPP) [Time] 27.2 s High 11.7-14.9 [facility] Comment on above: Order Comment: 411.2 Performed By: #### L 300.3900 ####[facility] [address] [place], [address] Prothrombin timeOrdered By: Kvng Crisostomo on 07-03-2024 PT Coag (PPP) [Time] 27.2 s High 11.7-14.9 [facility] International normalized rat io (INR) calculationOrdered By: Elizabethet Andressa on 06-30-2024 INR Coag (Bld) [Relative time] 2.4 {INR} [facility] Prothrombin Time w/INRon INR Coag (PPP) [Relative time] 2.4 {INR} Normal [facility] Comment on above: Order Comment: 411.2 Performed By: #### L 300.3900 ####[facility] [address] [facility] [phone] PT Coag (PPP) [Time] 26.8 s High 11.7-14.9 [facility] Comment on above: Order Comment: 411.2 Performed By: #### L 300.3900 ####[facility] [address] [place] [phone] Prothrombin timeOrdered By: Kvng Crisostomo on 06-30-2024 PT Coag (PPP) [Time] 26.8 s High 11.7-14.9 [facility] International normalized rat io (INR) calculationOrdered By: Kvng Crisostomo on 06-26-2024 INR Coag (Bld) [Relative time] 2.5 {INR} [facility] Prothrombin Time w/INRon INR Coag (PPP) [Relative time] 2.5 {INR} Normal [facility] Comment on above: Order Comment: 411.2 Performed By: #### L 300.3900 ####[facility] [address] [facility] [address] PT Coag (PPP) [Time] 27.5 s High 11.7-14.9 [facility] Comment on above: Order Comment: 411.2 Performed By: #### L 300.3900 ####[facility] [address] [place] [phone] Prothrombin timeOrdered By: Kvng Crisostomo on 06-26-2024 PT Coag (PPP) [Time] 27.5 s High 11.7-14.9 [facility] International normalized rat io (INR) calculationOrdered By: Carlos Cavazos on 06-23-2024 INR Coag (Bld) [Relative time] 2.8 {INR} [facility] Prothrombin Time w/INRon INR Coag (PPP) [Relative time] 2.8 {INR} Normal [facility] Comment on above: Order Comment: 411-2 Performed By: #### L 300.3900 ####[facility] [address] [place], [place], [phone] PT Coag (PPP) [Time] 29.7 s High 11.7-14.9 [facility] Comment on above: Order Comment: 411-2 Performed By: #### L 300.3900 ####[facility] [address] [place], [place], [phone] Prothrombin timeOrdered By: Carlos Cavazos on 06-23-2024 PT Coag (PPP) [Time] 29.7 s High 11.7-14.9 [facility] International normalized rat io (INR) calculationOrdered By: Kvng Crisostomo on 06-19-2024 INR Coag (Bld) [Relative time] 2.6 {INR} [facility] Prothrombin Time w/INRon INR Coag (PPP) [Relative time] 2.6 {INR} Normal [facility] Comment on above: Order Comment: 411.2 Performed By: #### L 300.3900 ####[facility] [address] [place], [place], [phone] PT Coag (PPP) [Time] 28.6 s High 11.7-14.9 [facility] Comment on above: Order Comment: 411.2 Performed By: #### L 300.3900 ####[facility] [address] [place], [place], [phone] Prothrombin timeOrdered By: Kvng Crisostomo on 06-19-2024 PT Coag (PPP) [Time] 28.6 s High 11.7-14.9 [facility] International normalized rat io (INR) calculationOrdered By: Kvng Crisostomo on 06-16-2024 INR Coag (Bld) [Relative time] 2.5 {INR} [facility] Prothrombin Time w/INRon INR Coag (PPP) [Relative time] 2.5 {INR} Normal [facility] Comment on above: Order Comment: 411.2 Performed By: #### L 300.3900 ####[facility] [address] [place], [place], [phone] PT Coag (PPP) [Time] 27.3 s High 11.7-14.9 [facility] Comment on above: Order Comment: 411.2 Performed By: #### L 300.3900 ####[facility] [address] [place], [place], [phone] Prothrombin timeOrdered By: Kvng Crisostomo on 06-16-2024 PT Coag (PPP) [Time] 27.3 s High 11.7-14.9 [facility] International normalized rat io (INR) calculationOrdered By: Kvng Crisostomo on 06-12-2024 INR Coag (Bld) [Relative time] 2.1 {INR} [facility] Prothrombin Time w/INRon INR Coag (PPP) [Relative time] 2.1 {INR} Normal [facility] Comment on above: Order Comment: 411.2 Performed By: #### L 300.3900 ####[facility] [address] [place], [place], [phone] PT Coag (PPP) [Time] 24.0 s High 11.7-14.9 [facility] Comment on above: Order Comment: 411.2 Performed By: #### L 300.3900 ####[facility] [address] [place], [place], [phone] Prothrombin timeOrdered By: Kvng Crisostomo on 06-12-2024 PT Coag (PPP) [Time] 24.0 s High 11.7-14.9 [facility] International normalized rat io (INR) calculationOrdered By: Carlos Cavazos on 06-09-2024 INR Coag (Bld) [Relative time] 1.5 {INR} [facility] Prothrombin Time w/INRon INR Coag (PPP) [Relative time] 1.5 {INR} Normal [facility] Comment on above: Order Comment: 411-2 Performed By: #### L 300.3900 ####[facility] [address] [place], [place], [phone] PT Coag (PPP) [Time] 18.0 s High 11.7-14.9 [facility] Comment on above: Order Comment: 411-2 Performed By: #### L 300.3900 ####[facility] [address] [place], [place], [phone] Prothrombin timeOrdered By: Carlos Cavazos on 06-09-2024 PT Coag (PPP) [Time] 18.0 s High 11.7-14.9 [facility] International normalized rat io (INR) calculationOrdered By: Kvng Crisostomo on 06-05-2024 INR Coag (Bld) [Relative time] 2.8 {INR} [facility] Prothrombin Time w/INRon INR Coag (PPP) [Relative time] 2.8 {INR} Normal [facility] Comment on above: Order Comment: 411.2 Performed By: #### L 300.3900 ####[facility] [address] [place], [address] PT Coag (PPP) [Time] 30.3 s High 11.7-14.9 [facility] Comment on above: Order Comment: 411.2 Performed By: #### L 300.3900 ####[facility] [address] [place], [address] Prothrombin timeOrdered By: Kvng Crisostomo on 06-05-2024 PT Coag (PPP) [Time] 30.3 s High 11.7-14.9 [facility] International normalized rat io (INR) calculationOrdered By: Kvng Crisostomo on 06-02-2024 INR Coag (Bld) [Relative time] 2.6 {INR} [facility] Prothrombin Time w/INRon INR Coag (PPP) [Relative time] 2.6 {INR} Normal [facility] Comment on above: Order Comment: 411.2 Performed By: #### L 300.3900 ####[facility] [address] [place], [address] PT Coag (PPP) [Time] 28.6 s High 11.7-14.9 [facility] Comment on above: Order Comment: 411.2 Performed By: #### L 300.3900 ####[facility] [address] [place], [address] Prothrombin timeOrdered By: Kvng Crisostomo on 06-02-2024 PT Coag (PPP) [Time] 28.6 s High 11.7-14.9 [facility] International normalized rat io (INR) calculationOrdered By: Kvng Crisostomo on 05-29-2024 INR Coag (Bld) [Relative time] 2.5 {INR} [facility] Prothrombin Time w/INRon INR Coag (PPP) [Relative time] 2.5 {INR} Normal [facility] Comment on above: Order Comment: 411.2 Performed By: #### L 300.3900 ####[facility] [address] [place], [address] PT Coag (PPP) [Time] 27.7 s High 11.7-14.9 [facility] Comment on above: Order Comment: 411.2 Performed By: #### L 300.3900 ####[facility] [address] [place], [place], [phone] Prothrombin timeOrdered By: Kvng Crisostomo on 05-29-2024 PT Coag (PPP) [Time] 27.7 s High 11.7-14.9 [facility] International normalized rat io (INR) calculationOrdered By: Carlos Cavazos on 05-26-2024 INR Coag (Bld) [Relative time] 2.2 {INR} [facility] Prothrombin Time w/INRon INR Coag (PPP) [Relative time] 2.2 {INR} Normal [facility] Comment on above: Order Comment: 411-2 Performed By: #### L 300.3900 ####[facility] [address] [place], [place], [phone] PT Coag (PPP) [Time] 24.5 s High 11.7-14.9 [facility] Comment on above: Order Comment: 411-2 Performed By: #### L 300.3900 ####[facility] [address] [place], [address] Prothrombin timeOrdered By: Carlos Cavazos on 05-26-2024 PT Coag (PPP) [Time] 24.5 s High 11.7-14.9 [facility] International normalized rat io (INR) calculationOrdered By: Kvng Crisostomo on 05-22-2024 INR Coag (Bld) [Relative time] 2.8 {INR} [facility] Prothrombin Time w/INRon INR Coag (PPP) [Relative time] 2.8 {INR} Normal [facility] Comment on above: Order Comment: 411.2 Performed By: #### L 300.3900 ####[facility] [address] [place], [address] PT Coag (PPP) [Time] 30.3 s High 11.7-14.9 [facility] Comment on above: Order Comment: 411.2 Performed By: #### L 300.3900 ####[facility] [address] [place], [place], [phone] Prothrombin timeOrdered By: Kvng Crisostomo on 05-22-2024 PT Coag (PPP) [Time] 30.3 s High 11.7-14.9 [facility] International normalized rat io (INR) calculationOrdered By: Kvng Crisostomo on 05-20-2024 INR Coag (Bld) [Relative time] 4.0 {INR} High [facility] Comment on above: CRITICAL VALUE CASEY D TO [id number]/14/25 [facility] Diana Mattson.RESULTS READ BACK BY SAME. Prothrombin Time w/INRon INR Coag (PPP) [Relative time] 4.0 {INR} Invalid Interpretation Code [facility] Comment on above: Order Comment: 411.2 Result Comment: CRIT ICAL VALUE CALLED TO [place] [address] [facility] Diana Mattson.RESULTS READ BACK BY SAME. Performed By: #### L 300.3900 ####[facility] [address] [place], [place], [phone] PT Coag (PPP) [Time] 39.9 s High 11.7-14.9 [facility] Comment on above: Order Comment: 411.2 Performed By: #### L 300.3900 ####[facility] [address] [place], [place], [phone] Prothrombin timeOrdered By: Kvng Crisostomo on 05-20-2024 PT Coag (PPP) [Time] 39.9 s High 11.7-14.9 [facility] International normalized rat io (INR) calculationOrdered By: Kvng Crisostomo on 05-19-2024 INR Coag (Bld) [Relative time] 3.4 {INR} [facility] Prothrombin Time w/INRon INR Coag (PPP) [Relative time] 3.4 {INR} Normal [facility] Comment on above: Order Comment: 411.2 Performed By: #### L 300.3900 ####[facility] [address] [place], [address] PT Coag (PPP) [Time] 35.4 s High 11.7-14.9 [facility] Comment on above: Order Comment: 411.2 Performed By: #### L 300.3900 ####[facility] [address] [place], [place], [phone] Prothrombin timeOrdered By: Kvng Crisostomo on 05-19-2024 PT Coag (PPP) [Time] 35.4 s High 11.7-14.9 [facility] International normalized rat io (INR) calculationOrdered By: Kvng Crisostomo on 05-15-2024 INR Coag (Bld) [Relative time] 2.6 {INR} [facility] Prothrombin Time w/INRon INR Coag (PPP) [Relative time] 2.6 {INR} Normal [facility] Comment on above: Order Comment: 411.2 Performed By: #### L 300.3900 ####[facility] [address], [address] PT Coag (PPP) [Time] 28.7 s High 11.7-14.9 [facility] Comment on above: Order Comment: 411.2 Performed By: #### L 300.3900 ####[facility] [address], [address] Prothrombin timeOrdered By: Kvng Crisostomo on 05-15-2024 PT Coag (PPP) [Time] 28.7 s High 11.7-14.9 [facility] International normalized rat io (INR) calculationOrdered By: Carlos Cavazos on 05-12-2024 INR Coag (Bld) [Relative time] 2.1 {INR} [facility] Prothrombin Time w/INRon INR Coag (PPP) [Relative time] 2.1 {INR} Normal [facility] Comment on above: Order Comment: 411-2 Performed By: #### L 300.3900 ####[facility] [address] [place], [address] PT Coag (PPP) [Time] 24.1 s High 11.7-14.9 [facility] Comment on above: Order Comment: 411-2 Performed By: #### L 300.3900 ####[facility] [address] [place], [address] Prothrombin timeOrdered By: Carlos Cavazos on 05-12-2024 PT Coag (PPP) [Time] 24.1 s High 11.7-14.9 [facility] International normalized rat io (INR) calculationOrdered By: Kvng Crisostomo on 05-09-2024 INR Coag (Bld) [Relative time] 3.4 {INR} [facility] Prothrombin Time w/INRon INR Coag (PPP) [Relative time] 3.4 {INR} Normal [facility] Comment on above: Order Comment: 411.2 Performed By: #### L 300.3900 ####[facility] [address] [place], [address] PT Coag (PPP) [Time] 35.4 s High 11.7-14.9 [facility] Comment on above: Order Comment: 411.2 Performed By: #### L 300.3900 ####[facility] [address] [place], [address] Prothrombin timeOrdered By: Kvng Crisostomo on 05-09-2024 PT Coag (PPP) [Time] 35.4 s High 11.7-14.9 [facility] International normalized rat io (INR) calculationOrdered By: Kvng Criosstomo on 05-08-2024 INR Coag (Bld) [Relative time] 4.1 {INR} High [facility] Comment on above: CRITICAL VALUE CASEYAndrés MCGINNIS05/08/24 0950 [place].RESULTS READ BACK BY SAME. Prothrombin Time w/INRon INR Coag (PPP) [Relative time] 4.1 {INR} Invalid Interpretation Code [facility] Comment on above: Order Comment: 411.2 Result Comment: CRIT ICAL VALUE CALLED TO [facility]05/08/24 0950 [place].RESULTS READ BACK BY SAME. Performed By: #### L 300.3900 ####[facility] [address] [place], [place], [phone] PT Coag (PPP) [Time] 40.8 s High 11.7-14.9 [facility] Comment on above: Order Comment: 411.2 Performed By: #### L 300.3900 ####[facility] [address] [place], [place], [phone] Prothrombin timeOrdered By: Kvng Crisostomo on 05-08-2024 PT Coag (PPP) [Time] 40.8 s High 11.7-14.9 [facility] International normalized rat io (INR) calculationOrdered By: Kvng Crisostomo on 05-05-2024 INR Coag (Bld) [Relative time] 3.2 {INR} [facility] Prothrombin Time w/INRon INR Coag (PPP) [Relative time] 3.2 {INR} Normal [facility] Comment on above: Order Comment: 411.2 Performed By: #### L 300.3900 ####[facility] [address] [place], [address] PT Coag (PPP) [Time] 32.5 s High 11.7-14.9 [facility] Comment on above: Order Comment: 411.2 Performed By: #### L 300.3900 ####[facility] [address] [place], [address] Prothrombin timeOrdered By: Kvng Crisostomo on 12-30-2024 PT Coag (PPP) [Time] 32.5 s High 11.7-14.9 [facility] International normalized rat io (INR) calculationOrdered By: Kvng Crisostomo on 05-01-2024 INR Coag (Bld) [Relative time] 3.1 {INR} [facility] Prothrombin Time w/INRon INR Coag (PPP) [Relative time] 3.1 {INR} Normal [facility] Comment on above: Order Comment: 411.2 Performed By: #### L 300.3900 ####[facility] [address] [place], [address] PT Coag (PPP) [Time] 31.9 s High 11.7-14.9 [facility] Comment on above: Order Comment: 411.2 Performed By: #### L 300.3900 ####[facility] [address] [place], [place], [phone]([phone] Prothrombin timeOrdered By: Kvng Crisostomo on 05-01-2024 PT Coag (PPP) [Time] 31.9 s High 11.7-14.9 [facility] International normalized rat io (INR) calculationOrdered By: Carlos Cavazos on 04-28-2024 INR Coag (Bld) [Relative time] 2.6 {INR} [facility] Prothrombin Time w/INRon INR Coag (PPP) [Relative time] 2.6 {INR} Normal [facility] Comment on above: Order Comment: 411-2 Performed By: #### L 300.3900 ####[facility] [address] [place], [address] PT Coag (PPP) [Time] 27.3 s High 11.7-14.9 [facility] Comment on above: Order Comment: 411-2 Performed By: #### L 300.3900 ####[facility] [address] [place], [place], [phone] Prothrombin timeOrdered By: Carlos Cavazos on 04-28-2024 PT Coag (PPP) [Time] 27.3 s High 11.7-14.9 [facility] International normalized rat io (INR) calculationOrdered By: Kvng Crisostomo on 04-24-2024 INR Coag (Bld) [Relative time] 3.6 {INR} [facility] Prothrombin Time w/INRon INR Coag (PPP) [Relative time] 3.6 {INR} Normal [facility] Comment on above: Order Comment: 411.2 Performed By: #### L 300.3900 ####[facility] [address] [place], [address] PT Coag (PPP) [Time] 35.6 s High 11.7-14.9 [facility] Comment on above: Order Comment: 411.2 Performed By: #### L 300.3900 ####[facility] [address] [place], [address] Prothrombin timeOrdered By: Kvng Crisostomo on 04-24-2024 PT Coag (PPP) [Time] 35.6 s High 11.7-14.9 [facility] International normalized rat io (INR) calculationOrdered By: Carlos Cavazos on 04-21-2024 INR Coag (Bld) [Relative time] 2.8 {INR} [facility] Prothrombin Time w/INRon INR Coag (PPP) [Relative time] 2.8 {INR} Normal [facility] Comment on above: Order Comment: 411-2 Performed By: #### L 300.3900 ####[facility] [address] [place], [address] PT Coag (PPP) [Time] 29.4 s High 11.7-14.9 [facility] Comment on above: Order Comment: 411-2 Performed By: #### L 300.3900 ####[facility] [address] [place], [address] Prothrombin timeOrdered By: Carlos Cavazos on 04-21-2024 PT Coag (PPP) [Time] 29.4 s High 11.7-14.9 [facility] International normalized rat io (INR) calculationOrdered By: Kvng Crisostomo on 04-17-2024 INR Coag (Bld) [Relative time] 3.1 {INR} [facility] Prothrombin Time w/INRon INR Coag (PPP) [Relative time] 3.1 {INR} Normal [facility] Comment on above: Order Comment: 411.2 Performed By: #### L 300.3900 ####[facility] [address] [place], [place], [phone] Prothrombin timeOrdered By: Kvng Crisostomo on 04-17-2024 PT Coag (PPP) [Time] 31.3 s High 11.7-14.9 [facility] Comment on above: Order Comment: 411.2 Performed By: #### L 300.3900 ####[facility] [address] [place], [place], [phone]([phone]) International normalized rat io (INR) calculationOrdered By: Kvng Crisostomo on 04-14-2024 INR Coag (Bld) [Relative time] 3.3 {INR} [facility] Prothrombin Time w/INRon INR Coag (PPP) [Relative time] 3.3 {INR} Normal [facility] Comment on above: Order Comment: 411.2 Performed By: #### L 300.3900 ####[facility] [address] [place], [place], [phone] PT Coag (PPP) [Time] 33.2 s High 11.7-14.9 [facility] Comment on above: Order Comment: 411.2 Performed By: #### L 300.3900 ####[facility] [address] [place], [place], [phone]([phone] Prothrombin timeOrdered By: Kvng Crisostomo on 04-14-2024 PT Coag (PPP) [Time] 33.2 s High 11.7-14.9 [facility] International normalized rat io (INR) calculationOrdered By: Kvng Crisostomo on 04-10-2024 INR Coag (Bld) [Relative time] 2.8 {INR} [facility] Prothrombin Time w/INRon INR Coag (PPP) [Relative time] 2.8 {INR} Normal [facility] Comment on above: Order Comment: 411.2 Performed By: #### L 300.3900 ####[facility] [address] [place], [place], [phone] PT Coag (PPP) [Time] 29.2 s High 11.7-14.9 [facility] Comment on above: Order Comment: 411.2 Performed By: #### L 300.3900 ####[facility] [address] [place], [place], [phone] Prothrombin timeOrdered By: Kvng Crisostomo on 04-10-2024 PT Coag (PPP) [Time] 29.2 s High 11.7-14.9 [facility] International normalized rat io (INR) calculationOrdered By: Carlos Cavazos on 04-07-2024 INR Coag (Bld) [Relative time] 2.7 {INR} [facility] Prothrombin Time w/INRon INR Coag (PPP) [Relative time] 2.7 {INR} Normal [facility] Comment on above: Order Comment: 411-2 Performed By: #### L 300.3900 ####[facility] [address] [place], [place], [phone] PT Coag (PPP) [Time] 28.1 s High 11.7-14.9 [facility] Comment on above: Order Comment: 411-2 Performed By: #### L 300.3900 ####[facility] [address] [place], [place], [phone] Prothrombin timeOrdered By: Carlos Cavazos on 04-07-2024 PT Coag (PPP) [Time] 28.1 s High 11.7-14.9 [facility] International normalized rat io (INR) calculationOrdered By: Kvng Crisostomo on 04-04-2024 INR Coag (Bld) [Relative time] 2.8 {INR} [facility] Prothrombin Time w/INRon INR Coag (PPP) [Relative time] 2.8 {INR} Normal [facility] Comment on above: Order Comment: 411.2 Performed By: #### L 300.3900 ####[facility] [address] [place], [address] PT Coag (PPP) [Time] 28.9 s High 11.7-14.9 [facility] Comment on above: Order Comment: 411.2 Performed By: #### L 300.3900 ####[facility] [address] [place], [address] Prothrombin timeOrdered By: Kvng Crisostomo on 04-04-2024 PT Coag (PPP) [Time] 28.9 s High 11.7-14.9 [facility] International normalized rat io (INR) calculationOrdered By: Carlos Cavazos on 03-31-2024 INR Coag (Bld) [Relative time] 2.6 {INR} [facility] Prothrombin Time w/INRon INR Coag (PPP) [Relative time] 2.6 {INR} Normal [facility] Comment on above: Order Comment: 411-2 Performed By: #### L 300.3900 ####[facility] [address] [place], [address] PT Coag (PPP) [Time] 27.3 s High 11.7-14.9 [facility] Comment on above: Order Comment: 411-2 Performed By: #### L 300.3900 ####[facility] [address] [place], [address] Prothrombin timeOrdered By: Carlos Cavazos on 03-31-2024 PT Coag (PPP) [Time] 27.3 s High 11.7-14.9 [facility] International normalized rat io (INR) calculationOrdered By: [employer] on 03-27-2024 INR Coag (Bld) [Relative time] 2.2 {INR} [facility] Prothrombin Time w/INRon INR Coag (PPP) [Relative time] 2.2 {INR} Normal [facility] Comment on above: Order Comment: 411.2 Performed By: #### L 300.3900 ####[facility] [address] [place], [address] PT Coag (PPP) [Time] 24.3 s High 11.7-14.9 [facility] Comment on above: Order Comment: 411.2 Performed By: #### L 300.3900 ####[facility] [address] [place], [address] Prothrombin timeOrdered By: [employer] on 03-27-2024 PT Coag (PPP) [Time] 24.3 s High 11.7-14.9 [facility] International normalized rat io (INR) calculationOrdered By: Kvng Crisostomo on 03-24-2024 INR Coag (Bld) [Relative time] 1.8 {INR} [facility] Prothrombin Time w/INRon INR Coag (PPP) [Relative time] 1.8 {INR} Normal [facility] Comment on above: Order Comment: 411.2 Performed By: #### L 300.3900 ####[facility] [address] [place], [address] PT Coag (PPP) [Time] 20.7 s High 11.7-14.9 [facility] Comment on above: Order Comment: 411.2 Performed By: #### L 300.3900 ####[facility] [address] [place], [address] Prothrombin timeOrdered By: Kvng Crisostomo on 03-24-2024 PT Coag (PPP) [Time] 20.7 s High 11.7-14.9 [facility] International normalized rat io (INR) calculationOrdered By: [employer] on 03-20-2024 INR Coag (Bld) [Relative time] 1.8 {INR} [facility] Prothrombin Time w/INRon INR Coag (PPP) [Relative time] 1.8 {INR} Normal [facility] Comment on above: Order Comment: 411.2 Performed By: #### L 300.3900 ####[facility] [address] [facility] [phone] PT Coag (PPP) [Time] 20.9 s High 11.7-14.9 [facility] Comment on above: Order Comment: 411.2 Performed By: #### L 300.3900 ####[facility] [address] [place], [place], [phone] Prothrombin timeOrdered By: [employer] on 03-20-2024 PT Coag (PPP) [Time] 20.9 s High 11.7-14.9 [facility] International normalized rat io (INR) calculationOrdered By: Kvng Crisostomo on 03-19-2024 INR Coag (Bld) [Relative time] 2.4 {INR} [facility] Prothrombin Time w/INRon INR Coag (PPP) [Relative time] 2.4 {INR} Normal [facility] Comment on above: Order Comment: 411.2 Performed By: #### L 300.3900 ####[facility] [address] [facility] [phone] PT Coag (PPP) [Time] 26.4 s High 11.7-14.9 [facility] Comment on above: Order Comment: 411.2 Performed By: #### L 300.3900 ####[facility] [address] [facility] [address] Prothrombin timeOrdered By: Kvng Crisostomo on 03-19-2024 PT Coag (PPP) [Time] 26.4 s High 11.7-14.9 [facility] International normalized rat io (INR) calculationOrdered By: [employer] on 03-18-2024 INR Coag (Bld) [Relative time] 3.2 {INR} [facility] Prothrombin Time w/INRon INR Coag (PPP) [Relative time] 3.2 {INR} Normal [facility] Comment on above: Order Comment: 411.2 Performed By: #### L 300.3900 ####[facility] [address] [place], [place], [phone] PT Coag (PPP) [Time] 32.3 s High 11.7-14.9 [facility] Comment on above: Order Comment: 411.2 Performed By: #### L 300.3900 ####[facility] [address] [place], [place], [phone] Prothrombin timeOrdered By: [employer] on 03-18-2024 PT Coag (PPP) [Time] 32.3 s High 11.7-14.9 [facility] International normalized rat io (INR) calculationOrdered By: [employer] on 03-17-2024 INR Coag (Bld) [Relative time] 3.6 {INR} [facility] Prothrombin Time w/INRon INR Coag (PPP) [Relative time] 3.6 {INR} Normal [facility] Comment on above: Order Comment: 411.2 Performed By: #### L 300.3900 ####[facility] [address] [place], [address] PT Coag (PPP) [Time] 35.7 s High 11.7-14.9 [facility] Comment on above: Order Comment: 411.2 Performed By: #### L 300.3900 ####[facility] [address] [place], [phone] Prothrombin timeOrdered By: [employer] on 03-17-2024 PT Coag (PPP) [Time] 35.7 s High 11.7-14.9 [facility] International normalized rat io (INR) calculationOrdered By: Carlos Cavazos on 03-14-2024 INR Coag (Bld) [Relative time] 3.5 {INR} [facility] Prothrombin Time w/INRon INR Coag (PPP) [Relative time] 3.5 {INR} Normal [facility] Comment on above: Order Comment: 411-2 Performed By: #### L 300.3900 ####[facility] [address] [place], [phone] PT Coag (PPP) [Time] 35.0 s High 11.7-14.9 [facility] Comment on above: Order Comment: 411-2 Performed By: #### L 300.3900 ####[facility] [address] [place], [address] Prothrombin timeOrdered By: Carlos Cavazos on 03-14-2024 PT Coag (PPP) [Time] 35.0 s High 11.7-14.9 [facility] International normalized rat io (INR) calculationOrdered By: [employer] on 03-13-2024 INR Coag (Bld) [Relative time] 3.2 {INR} [facility] Prothrombin Time w/INRon INR Coag (PPP) [Relative time] 3.2 {INR} Normal [facility] Comment on above: Performed By: #### L 300.3900 ####[facility] [address] [place], [address] PT Coag (PPP) [Time] 32.2 s High 11.7-14.9 [facility] Comment on above: Performed By: #### L 300.3900 ####[facility] [address] [place], [address] Prothrombin timeOrdered By: [employer] on 03-13-2024 PT Coag (PPP) [Time] 32.2 s High 11.7-14.9 [facility] Prothrombin Time w/INRon INR Coag (PPP) [Relative time] 2.6 {INR} Normal [facility] Comment on above: Order Comment: 411.2 Performed By: #### L 300.3900 ####[facility] [address] [place], [address] PT Coag (PPP) [Time] 27.7 s High 11.7-14.9 [facility] Comment on above: Order Comment: 411.2 Performed By: #### L 300.3900 ####[facility] [address] [place], [address] Prothrombin Time w/INRon INR Coag (PPP) [Relative time] 3.1 {INR} Normal [facility] Comment on above: Order Comment: 411.2 Performed By: #### L 300.3900 ####[facility] [address] [place], [address] PT Coag (PPP) [Time] 31.4 s High 11.7-14.9 [facility] Comment on above: Order Comment: 411.2 Performed By: #### L 300.3900 ####[facility] [address] [place], [address] Prothrombin Time w/INRon INR Coag (PPP) [Relative time] 3.1 {INR} Normal [facility] Comment on above: Order Comment: 411.2 Performed By: #### L 300.3900 ####[facility] [address] [place], [address] PT Coag (PPP) [Time] 31.8 s High 11.7-14.9 [facility] Comment on above: Order Comment: 411.2 Performed By: #### L 300.3900 ####[facility] [address] [place], [address] Prothrombin Time w/INRon 10- -2023 INR Coag (PPP) [Relative time] 3.0 {INR} Normal [facility] Comment on above: Order Comment: 411.2 Performed By: #### L 300.3900 ####[facility] [address] [place], [address] PT Coag (PPP) [Time] 30.6 s High 11.7-14.9 [facility] Comment on above: Order Comment: 411.2 Performed By: #### L 300.3900 ####[facility] [address] [place], [address] Prothrombin Time w/INRon - -2023 INR Coag (PPP) [Relative time] 2.6 {INR} Normal [facility] Comment on above: Order Comment: 411-2 Performed By: #### L 300.3900 ####[facility] [address] [place], [address] PT Coag (PPP) [Time] 27.5 s High 11.7-14.9 [facility] Comment on above: Order Comment: 411-2 Performed By: #### L 300.3900 ####[facility] [address] [place], [address] Prothrombin Time w/INRon - -2023 INR Coag (PPP) [Relative time] 2.3 {INR} Normal [facility] Comment on above: Order Comment: 411.2 Performed By: #### L 300.3900 ####[facility] [address] [place], [address] PT Coag (PPP) [Time] 25.5 s High 11.7-14.9 [facility] Comment on above: Order Comment: 411.2 Performed By: #### L 300.3900 ####[facility] [address] [place], [address] Prothrombin Time w/INRon INR Coag (PPP) [Relative time] 1.9 {INR} Normal [facility] Comment on above: Order Comment: 411.2 Performed By: #### L 300.3900 ####[facility] [address] [place], [address] PT Coag (PPP) [Time] 21.3 s High 11.7-14.9 [facility] Comment on above: Order Comment: 411.2 Performed By: #### L 300.3900 ####[facility] [address] [place], [address] Prothrombin Time w/INRon INR Coag (PPP) [Relative time] 2.5 {INR} Normal [facility] Comment on above: Order Comment: 411.2 Performed By: #### L 300.3900 ####[facility] [address] [place], [address] PT Coag (PPP) [Time] 26.5 s High 11.7-14.9 [facility] Comment on above: Order Comment: 411.2 Performed By: #### L 300.3900 ####[facility] [address] [place], [address] Prothrombin Time w/INRon INR Coag (PPP) [Relative time] 2.9 {INR} Normal [facility] Comment on above: Order Comment: 411.2 Performed By: #### L 300.3900 ####[facility] [address] [place], [address] PT Coag (PPP) [Time] 30.2 s High 11.7-14.9 [facility] Comment on above: Order Comment: 411.2 Performed By: #### L 300.3900 ####[facility] [address] [place], [address] Prothrombin Time w/INRon INR Coag (PPP) [Relative time] 3.6 {INR} Normal [facility] Comment on above: Order Comment: 411.2 Performed By: #### L 300.3900 ####[facility] [address] [place], [address] PT Coag (PPP) [Time] 35.3 s High 11.7-14.9 [facility] Comment on above: Order Comment: 411.2 Performed By: #### L 300.3900 ####[facility] [address] [place], [address] Prothrombin Time w/INRon INR Coag (PPP) [Relative time] 2.8 {INR} Normal [facility] Comment on above: Order Comment: 411-2 Performed By: #### L 300.3900 ####[facility] [address] [place], [address] PT Coag (PPP) [Time] 29.4 s High 11.7-14.9 [facility] Comment on above: Order Comment: 411-2 Performed By: #### L 300.3900 ####[facility] [address] [place], [address] Prothrombin Time w/INRon INR Coag (PPP) [Relative time] 2.9 {INR} Normal [facility] Comment on above: Order Comment: 411.2 Performed By: #### L 300.3900 ####[facility] [address] [place], [address] PT Coag (PPP) [Time] 29.9 s High 11.7-14.9 [facility] Comment on above: Order Comment: 411.2 Performed By: #### L 300.3900 ####[facility] [address] [place], [address] Prothrombin Time w/INRon INR Coag (PPP) [Relative time] 2.2 {INR} Normal [facility] Comment on above: Order Comment: 411.2 Performed By: #### L 300.3900 ####[facility] [address] [place], [address] PT Coag (PPP) [Time] 24.1 s High 11.7-14.9 [facility] Comment on above: Order Comment: 411.2 Performed By: #### L 300.3900 ####[facility] [address] [place], [address] Prothrombin Time w/INRon INR Coag (PPP) [Relative time] 2.1 {INR} Normal [facility] Comment on above: Order Comment: 411-2 Performed By: #### L 300.3900 ####[facility] [address] [place], [address] PT Coag (PPP) [Time] 23.0 s High 11.7-14.9 [facility] Comment on above: Order Comment: 411-2 Performed By: #### L 300.3900 ####[facility] [address] [place], [address] Prothrombin Time w/INRon INR Coag (PPP) [Relative time] 2.8 {INR} Normal [facility] Comment on above: Performed By: #### L 300.3900 ####[facility] [address] [place], [address] PT Coag (PPP) [Time] 28.9 s High 11.7-14.9 [facility] Comment on above: Performed By: #### L 300.3900 ####[facility] [address] [place], [address] Protime w/INR Fingerstickon 01-29-2024 INR Coag (PPP) [Relative time] 3.2 {INR} Normal [facility] Comment on above: Result Comment: Crit ical Value > 4.0 Performed By: #### L 9200.0000 ####[facility] [address] [place], [address] Protime Coagsen 31.8 SEC High 11.7-14.9 [facility] Comment on above: Performed By: #### L 9200.0000 ####[facility] [address] [place], [address] KEPPRA (LEVETIRACETAM)on KEPPRA 35.2 ug/mL Normal 10.0-40.0 [facility] Comment on above: Order Comment: 411-2 Result Comment: Perf ormed at: - [facility] [id number] Director: Alpesh Vázquez MD, Phone: [phone] Performed By: #### L 300.3900, L3310.0000 ####[facility] [address] [place], [address] Prothrombin Time w/INRon INR Coag (PPP) [Relative time] 2.9 {INR} Normal [facility] Comment on above: Order Comment: 411-2 Performed By: #### L 300.3900, L3310.0000 ####[facility] [address] [place], [address] PT Coag (PPP) [Time] 30.1 s High 11.7-14.9 [facility] Comment on above: Order Comment: 411-2 Performed By: #### L 300.3900, L3310.0000 ####[facility] [address] [place], [address] Prothrombin Time w/INRon INR Coag (PPP) [Relative time] 2.3 {INR} Normal [facility] Comment on above: Order Comment: 411-2 Performed By: #### L 300.3900 ####[facility] [address] [place], [address] PT Coag (PPP) [Time] 25.2 s High 11.7-14.9 [facility] Comment on above: Order Comment: 411-2 Performed By: #### L 300.3900 ####[facility] [address] [place], [address] Prothrombin Time w/INRon INR Coag (PPP) [Relative time] 2.7 {INR} Normal [facility] Comment on above: Order Comment: 411-2 Performed By: #### L 300.3900 ####[facility] [address] [place], [address] PT Coag (PPP) [Time] 28.3 s High 11.7-14.9 [facility] Comment on above: Order Comment: 411-2 Performed By: #### L 300.3900 ####[facility] [address] [place], [address] Protime w/INR Fingerstickon 01-10-2024 INR Coag (PPP) [Relative time] 3.5 {INR} Normal [facility] Comment on above: Result Comment: Crit ical Value > 4.0 Performed By: #### L 9200.0000 ####[facility] [address] [place], [address] Protime Coagsen 34.2 SEC High 11.7-14.9 [facility] Comment on above: Performed By: #### L 9200.0000 ####[facility] [address] [place], [address] CBC-Complete Blood Cnt No Di ffon 01-08-2024 Erythrocyte distribution width (RBC) [Ratio] 15.2 % High 11.6-14.6 [facility] Comment on above: Order Comment: 411-2 Performed By: #### L 100.0500, L300.3900 ####[facility] [address] [place], [address] Hematocrit (Bld) [Volume fraction] 39.0 % Low 40-54 [facility] Comment on above: Order Comment: 411-2 Performed By: #### L 100.0500, L300.3900 ####[facility] [address] [place], [address] Hemoglobin (Bld) [Mass/Vol] 12.1 g/dL Low 13.0-16.5 [facility] Comment on above: Order Comment: 411-2 Performed By: #### L 100.0500, L300.3900 ####[facility] [address] [place], [address] MCH (RBC) [Entitic mass] 27.1 pg Normal 27.0-32.0 [facility] Comment on above: Order Comment: 411-2 Performed By: #### L 100.0500, L300.3900 ####[facility] [address] [place], [address] MCHC (RBC) [Mass/Vol] 31.0 g/dL Low 32-36 [facility] Comment on above: Order Comment: 411-2 Performed By: #### L 100.0500, L300.3900 ####[facility] [address] [place], [address] MCV (RBC) [Entitic vol] 87.2 fL Normal 80-94 [facility] Comment on above: Order Comment: 411-2 Performed By: #### L 100.0500, L300.3900 ####[facility] [address] [place], [address] Platelet mean volume (Bld) [Entitic vol] 10.8 fL Normal 6.2-12.0 [facility] Comment on above: Order Comment: 411-2 Performed By: #### L 100.0500, L300.3900 ####[facility] [address] [place], [address] Platelets (Bld) [#/Vol] 300 10*3/uL Normal 150-450 [facility] Comment on above: Order Comment: 411-2 Performed By: #### L 100.0500, L300.3900 ####[facility] [address] [place], [address] RBC (Bld) [#/Vol] 4.47 10*6/uL Low 4.6-6.2 [facility] Comment on above: Order Comment: 411-2 Performed By: #### L 100.0500, L300.3900 ####[facility] [address] [place], [address] RDW SD 48.7 fl High 35.1-43.9 [facility] Comment on above: Order Comment: 411-2 Performed By: #### L 100.0500, L300.3900 ####[facility] [address] [place], [address] WBC (Bld) [#/Vol] 13.0 10*3/uL High 4.4-11.0 [facility] Comment on above: Order Comment: 411-2 Performed By: #### L 100.0500, L300.3900 ####[facility] [address] [place], [address] Prothrombin Time w/INRon INR Coag (PPP) [Relative time] 3.9 {INR} Normal [facility] Comment on above: Order Comment: 411-2 Performed By: #### L 100.0500, L300.3900 ####[facility] [address] [place], [address] PT Coag (PPP) [Time] 37.8 s High 11.7-14.9 [facility] Comment on above: Order Comment: 411-2 Performed By: #### L 100.0500, L300.3900 ####[facility] [address] [place], [address] Urine Cultureon 01-03-2024 URC Culture exhibits no growth. Normal [facility] Comment on above: Performed By: #### M 100.2200, L400.0001, L300.3900 ####[facility] [address] [place], [address] Prothrombin Time w/INRon INR Coag (PPP) [Relative time] 3.0 {INR} Normal [facility] Comment on above: Performed By: #### M 100.2200, L400.0001, L300.3900 ####[facility] [address] [place], [address] PT Coag (PPP) [Time] 30.7 s High 11.7-14.9 [facility] Comment on above: Performed By: #### M 100.2200, L400.0001, L300.3900 ####[facility] [address] [place], [address] Urinalysis, Completeon 01-01 RBC 0-5 SEEN Normal 0-5 [facility] Comment on above: Order Comment: CLEAN CATCH Performed By: #### M 100.2200, L400.0001, L300.3900 ####[facility] [address] [place], [address] BACTERIA 0 SEEN Normal None Seen [facility] Comment on above: Order Comment: CLEAN CATCH Performed By: #### M 100.2200, L400.0001, L300.3900 ####[facility] [address] [place], [address] EPI,SQUAMOUS 0 SEEN Normal 0-5 [facility] Comment on above: Order Comment: CLEAN CATCH Performed By: #### M 100.2200, L400.0001, L300.3900 ####[facility] [address] [place], [address] Mucus Ql (Urine sed) 0 SEEN Normal [facility] [facility] Comment on above: Order Comment: CLEAN CATCH Performed By: #### M 100.2200, L400.0001, L300.3900 ####[facility] [address] [place], [address] WBC 0 SEEN Normal 0-5 [facility] Comment on above: Order Comment: CLEAN CATCH Performed By: #### M 100.2200, L400.0001, L300.3900 ####[facility] [address] [place], [address] Basic Metabolic Profile (BMP )on 01-01-2024 BUN/CRE 25.0 RATIO High 10-20 [facility] Comment on above: Order Comment: 411.2 Performed By: #### L 300.3900, L100.0500, L500.2500 ####[facility] [address] [place], [address] CA,Total 9.1 mg/dL Normal 8.5-10.1 [facility] Comment on above: Order Comment: 411.2 Performed By: #### L 300.3900, L100.0500, L500.2500 ####[facility] [address] [place], [address] Chloride [Moles/Vol] 104 mmol/L Normal 98-107 [facility] Comment on above: Order Comment: 411.2 Performed By: #### L 300.3900, L100.0500, L500.2500 ####[facility] [address] [place], [address] CO2 [Moles/Vol] 24.0 mmol/L Normal 21.0-32.0 [facility] Comment on above: Order Comment: 411.2 Performed By: #### L 300.3900, L100.0500, L500.2500 ####[facility] [address] [place], [address] Creatinine [Mass/Vol] 0.84 mg/dL Normal 0.70-1.30 [facility] Comment on above: Order Comment: 411.2 Result Comment: The validity of the calculated GFR GFRAA in patients over70 years has not been determined. Clinical correlation isessential. Performed By: #### L 300.3900, L100.0500, L500.2500 ####[facility] [address] [place], [address] EST GFR - AA 116 mL/min Normal >60 [facility] Comment on above: Order Comment: 411.2 Result Comment: Afri can Tunisian GFR Calc Performed By: #### L 300.3900, L100.0500, L500.2500 ####[facility] [address] [place], [address] GAP 9 Normal 5-15 [facility] Comment on above: Order Comment: 411.2 Performed By: #### L 300.3900, L100.0500, L500.2500 ####[facility] [address] [place], [address] GFR/1.73 sq M.predicted among non-blacks MDRD (S/P/Bld) [Vol rate/Area] 95 mL/min/{1.73_m2} Normal >60 [facility] Comment on above: Order Comment: 411.2 Result Comment: Non- GFR Calc Performed By: #### L 300.3900, L100.0500, L500.2500 ####[facility] [address] [place], [address] Glucose [Mass/Vol] 92 mg/dL Normal 74-106 [facility] Comment on above: Order Comment: 411.2 Performed By: #### L 300.3900, L100.0500, L500.2500 ####[facility] [address] [place], [address] Potassium [Moles/Vol] 4.2 mmol/L Normal 3.5-5.1 [facility] Comment on above: Order Comment: 411.2 Performed By: #### L 300.3900, L100.0500, L500.2500 ####[facility] [address] [place], [address] Sodium [Moles/Vol] 137 mmol/L Normal 136-145 [facility] Comment on above: Order Comment: 411.2 Performed By: #### L 300.3900, L100.0500, L500.2500 ####[facility] [address] [place], [address] Urea nitrogen [Mass/Vol] 21 mg/dL High 7-18 [facility] Comment on above: Order Comment: 411.2 Performed By: #### L 300.3900, L100.0500, L500.2500 ####[facility] [address] [place], [address] CBC-Complete Blood Cnt No Di ffon 01-01-2024 Erythrocyte distribution width (RBC) [Ratio] 14.9 % High 11.6-14.6 [facility] Comment on above: Order Comment: 411.2 Performed By: #### L 300.3900, L100.0500, L500.2500 ####[facility] [address] [place], [address] Hematocrit (Bld) [Volume fraction] 38.4 % Low 40-54 [facility] Comment on above: Order Comment: 411.2 Performed By: #### L 300.3900, L100.0500, L500.2500 ####[facility] [address] [place], [address] Hemoglobin (Bld) [Mass/Vol] 12.2 g/dL Low 13.0-16.5 [facility] Comment on above: Order Comment: 411.2 Performed By: #### L 300.3900, L100.0500, L500.2500 ####[facility] [address] [place], [address] MCH (RBC) [Entitic mass] 27.1 pg Normal 27.0-32.0 [facility] Comment on above: Order Comment: 411.2 Performed By: #### L 300.3900, L100.0500, L500.2500 ####[facility] [address] [place], [address] MCHC (RBC) [Mass/Vol] 31.8 g/dL Low 32-36 [facility] Comment on above: Order Comment: 411.2 Performed By: #### L 300.3900, L100.0500, L500.2500 ####[facility] [address] [place], [address] MCV (RBC) [Entitic vol] 85.3 fL Normal 80-94 [facility] Comment on above: Order Comment: 411.2 Performed By: #### L 300.3900, L100.0500, L500.2500 ####[facility] [address] [place], [address] Platelet mean volume (Bld) [Entitic vol] 10.1 fL Normal 6.2-12.0 [facility] Comment on above: Order Comment: 411.2 Performed By: #### L 300.3900, L100.0500, L500.2500 ####[facility] [address] [place], [address] Platelets (Bld) [#/Vol] 287 10*3/uL Normal 150-450 [facility] Comment on above: Order Comment: 411.2 Performed By: #### L 300.3900, L100.0500, L500.2500 ####[facility] [address] [place], [address] RBC (Bld) [#/Vol] 4.50 10*6/uL Low 4.6-6.2 [facility] Comment on above: Order Comment: 411.2 Performed By: #### L 300.3900, L100.0500, L500.2500 ####[facility] [address] [place], [address] RDW SD 46.5 fl High 35.1-43.9 [facility] Comment on above: Order Comment: 411.2 Performed By: #### L 300.3900, L100.0500, L500.2500 ####[facility] [address] [place], [address] WBC (Bld) [#/Vol] 14.8 10*3/uL High 4.4-11.0 [facility] Comment on above: Order Comment: 411.2 Performed By: #### L 300.3900, L100.0500, L500.2500 ####[facility] [address] [place], [address] Prothrombin Time w/INRon INR Coag (PPP) [Relative time] 2.5 {INR} Normal [facility] Comment on above: Order Comment: 411.2 Performed By: #### L 300.3900, L100.0500, L500.2500 ####[facility] [address] [place], [address] PT Coag (PPP) [Time] 26.6 s High 11.7-14.9 [facility] Comment on above: Order Comment: 411.2 Performed By: #### L 300.3900, L100.0500, L500.2500 ####[facility] [address] [place], [address] Prothrombin Time w/INRon INR Coag (PPP) [Relative time] 2.1 {INR} Normal [facility] Comment on above: Order Comment: 411.2 Performed By: #### L 300.3900 ####[facility] [address] [place], [address] PT Coag (PPP) [Time] 23.5 s High 11.7-14.9 [facility] Comment on above: Order Comment: 411.2 Performed By: #### L 300.3900 ####[facility] [address] [place], [address] Prothrombin Time w/INRon INR Coag (PPP) [Relative time] 3.2 {INR} Normal [facility] Comment on above: Order Comment: 411-2 Performed By: #### L 300.3900 ####[facility] [address] [place], [address] PT Coag (PPP) [Time] 32.6 s High 11.7-14.9 [facility] Comment on above: Order Comment: 411-2 Performed By: #### L 300.3900 ####[facility] [address] [place], [address] Prothrombin Time w/INRon INR Coag (PPP) [Relative time] 2.6 {INR} Normal [facility] Comment on above: Order Comment: 411-2 Performed By: #### L 300.3900 ####[facility] [address] [place], [address] PT Coag (PPP) [Time] 27.4 s High 11.7-14.9 [facility] Comment on above: Order Comment: 411-2 Performed By: #### L 300.3900 ####[facility] [address] [place], [address] Basic Metabolic Profile (BMP )on 12-04-2023 BUN/CRE 26.8 RATIO High 10-20 [facility] Comment on above: Order Comment: 411.2 Performed By: #### L 100.0500, L500.2500 ####[facility] [address] [place], [address] CA,Total 8.8 mg/dL Normal 8.5-10.1 [facility] Comment on above: Order Comment: 411.2 Performed By: #### L 100.0500, L500.2500 ####[facility] [address] [place], [address] Chloride [Moles/Vol] 105 mmol/L Normal 98-107 [facility] Comment on above: Order Comment: 411.2 Performed By: #### L 100.0500, L500.2500 ####[facility] [address] [place], [address] CO2 [Moles/Vol] 27.0 mmol/L Normal 21.0-32.0 [facility] Comment on above: Order Comment: 411.2 Performed By: #### L 100.0500, L500.2500 ####[facility] [address] [place], [address] Creatinine [Mass/Vol] 0.90 mg/dL Normal 0.70-1.30 [facility] Comment on above: Order Comment: 411.2 Result Comment: The validity of the calculated GFR GFRAA in patients over70 years has not been determined. Clinical correlation isessential. Performed By: #### L 100.0500, L500.2500 ####[facility] [address] [place], [address] EST GFR - AA 107 mL/min Normal >60 [facility] Comment on above: Order Comment: 411.2 Result Comment: Afri can Tunisian GFR Calc Performed By: #### L 100.0500, L500.2500 ####[facility] [address] [place], [address] GAP 7 Normal 5-15 [facility] Comment on above: Order Comment: 411.2 Performed By: #### L 100.0500, L500.2500 ####[facility] [address] [place], [address] GFR/1.73 sq M.predicted among non-blacks MDRD (S/P/Bld) [Vol rate/Area] 89 mL/min/{1.73_m2} Normal >60 [facility] Comment on above: Order Comment: 411.2 Result Comment: Non- GFR Calc Performed By: #### L 100.0500, L500.2500 ####[facility] [address] [place], [address] Glucose [Mass/Vol] 92 mg/dL Normal 74-106 [facility] Comment on above: Order Comment: 411.2 Performed By: #### L 100.0500, L500.2500 ####[facility] [address] [place], [address] Potassium [Moles/Vol] 4.0 mmol/L Normal 3.5-5.1 [facility] Comment on above: Order Comment: 411.2 Performed By: #### L 100.0500, L500.2500 ####[facility] [address] [place], [address] Sodium [Moles/Vol] 139 mmol/L Normal 136-145 [facility] Comment on above: Order Comment: 411.2 Performed By: #### L 100.0500, L500.2500 ####[facility] [address] [place], [address] Urea nitrogen [Mass/Vol] 24 mg/dL High 7-18 [facility] Comment on above: Order Comment: 411.2 Performed By: #### L 100.0500, L500.2500 ####[facility] [address] [place], [address] CBC-Complete Blood Cnt No Di ffon 12-04-2023 Erythrocyte distribution width (RBC) [Ratio] 14.9 % High 11.6-14.6 [facility] Comment on above: Order Comment: 411.2 Performed By: #### L 100.0500, L500.2500 ####[facility] [address] [place], [address] Hematocrit (Bld) [Volume fraction] 39.3 % Low 40-54 [facility] Comment on above: Order Comment: 411.2 Performed By: #### L 100.0500, L500.2500 ####[facility] [address] [place], [address] Hemoglobin (Bld) [Mass/Vol] 12.6 g/dL Low 13.0-16.5 [facility] Comment on above: Order Comment: 411.2 Performed By: #### L 100.0500, L500.2500 ####[facility] [address] [place], [address] MCH (RBC) [Entitic mass] 27.3 pg Normal 27.0-32.0 [facility] Comment on above: Order Comment: 411.2 Performed By: #### L 100.0500, L500.2500 ####[facility] [address] [place], [address] MCHC (RBC) [Mass/Vol] 32.1 g/dL Normal 32-36 [facility] Comment on above: Order Comment: 411.2 Performed By: #### L 100.0500, L500.2500 ####[facility] [address] [place], [address] MCV (RBC) [Entitic vol] 85.1 fL Normal 80-94 [facility] Comment on above: Order Comment: 411.2 Performed By: #### L 100.0500, L500.2500 ####[facility] [address] [place], [address] Platelet mean volume (Bld) [Entitic vol] 9.8 fL Normal 6.2-12.0 [facility] Comment on above: Order Comment: 411.2 Performed By: #### L 100.0500, L500.2500 ####[facility] [address] [place], [address] Platelets (Bld) [#/Vol] 298 10*3/uL Normal 150-450 [facility] Comment on above: Order Comment: 411.2 Performed By: #### L 100.0500, L500.2500 ####[facility] [address] [place], [address] RBC (Bld) [#/Vol] 4.62 10*6/uL Normal 4.6-6.2 [facility] Comment on above: Order Comment: 411.2 Performed By: #### L 100.0500, L500.2500 ####[facility] [address] [place], [address] RDW SD 46.5 fl High 35.1-43.9 [facility] Comment on above: Order Comment: 411.2 Performed By: #### L 100.0500, L500.2500 ####[facility] [address] [place], [address] WBC (Bld) [#/Vol] 10.3 10*3/uL Normal 4.4-11.0 [facility] Comment on above: Order Comment: 411.2 Performed By: #### L 100.0500, L500.2500 ####[facility] [address] [place], [address] M100.019on 12-03-2023 M100.019 ORDERED ONLY RSV AND COVID, NO FLU SARS-CoV-2 (COVID 19) Negative Normal [facility] Comment on above: Performed By: #### M 100.642, M100.019, L300.3900 ####[facility] [address] [place], [address] M100.642on 12-03-2023 M100.642 Negative Normal [facility] Comment on above: Performed By: #### M 100.642, M100.019, L300.3900 ####[facility] [address] [place], [address] Prothrombin Time w/INRon INR Coag (PPP) [Relative time] 2.2 {INR} Normal [facility] Comment on above: Order Comment: 411.2 Performed By: #### M 100.642, M100.019, L300.3900 ####[facility] [address] [place], [address] PT Coag (PPP) [Time] 24.2 s High 11.7-14.9 [facility] Comment on above: Order Comment: 411.2 Performed By: #### M 100.642, M100.019, L300.3900 ####[facility] [address] [place], [address] Basic Metabolic Profile (BMP )on 11-30-2023 BUN/CRE 18.4 RATIO Normal 10-20 [facility] Comment on above: Order Comment: 411-2 Performed By: #### L 500.2500, L100.0500 ####[facility] [address] [place], [address] CA,Total 8.7 mg/dL Normal 8.5-10.1 [facility] Comment on above: Order Comment: 411-2 Performed By: #### L 500.2500, L100.0500 ####[facility] [address] [place], [address] Chloride [Moles/Vol] 106 mmol/L Normal 98-107 [facility] Comment on above: Order Comment: 411-2 Performed By: #### L 500.2500, L100.0500 ####[facility] [address] [place], [address] CO2 [Moles/Vol] 26.0 mmol/L Normal 21.0-32.0 [facility] Comment on above: Order Comment: 411-2 Performed By: #### L 500.2500, L100.0500 ####[facility] [address] [place], [address] Creatinine [Mass/Vol] 0.87 mg/dL Normal 0.70-1.30 [facility] Comment on above: Order Comment: 411-2 Result Comment: The validity of the calculated GFR GFRAA in patients over70 years has not been determined. Clinical correlation isessential. Performed By: #### L 500.2500, L100.0500 ####[facility] [address] [place], [address] EST GFR - AA 111 mL/min Normal >60 [facility] Comment on above: Order Comment: 411-2 Result Comment: Afri can Tunisian GFR Calc Performed By: #### L 500.2500, L100.0500 ####[facility] [address] [place], [address] GAP 6 Normal 5-15 [facility] Comment on above: Order Comment: 411-2 Performed By: #### L 500.2500, L100.0500 ####[facility] [address] [place], [address] GFR/1.73 sq M.predicted among non-blacks MDRD (S/P/Bld) [Vol rate/Area] 92 mL/min/{1.73_m2} Normal >60 [facility] Comment on above: Order Comment: 411-2 Result Comment: Non- GFR Calc Performed By: #### L 500.2500, L100.0500 ####[facility] [address] [place], [address] Glucose [Mass/Vol] 96 mg/dL Normal 74-106 [facility] Comment on above: Order Comment: 411-2 Performed By: #### L 500.2500, L100.0500 ####[facility] [address] [place], [address] Potassium [Moles/Vol] 4.2 mmol/L Normal 3.5-5.1 [facility] Comment on above: Order Comment: 411-2 Performed By: #### L 500.2500, L100.0500 ####[facility] [address] [place], [address] Sodium [Moles/Vol] 138 mmol/L Normal 136-145 [facility] Comment on above: Order Comment: 411-2 Performed By: #### L 500.2500, L100.0500 ####[facility] [address] [place], [address] Urea nitrogen [Mass/Vol] 16 mg/dL Normal 7-18 [facility] Comment on above: Order Comment: 411-2 Performed By: #### L 500.2500, L100.0500 ####[facility] [address] [place], [address] CBC-Complete Blood Cnt No Di ffon 11-30-2023 Erythrocyte distribution width (RBC) [Ratio] 15.2 % High 11.6-14.6 [facility] Comment on above: Performed By: #### L 500.2500, L100.0500 ####[facility] [address] [place], [address] Hematocrit (Bld) [Volume fraction] 39.5 % Low 40-54 [facility] Comment on above: Performed By: #### L 500.2500, L100.0500 ####[facility] [address] [place], [address] Hemoglobin (Bld) [Mass/Vol] 12.3 g/dL Low 13.0-16.5 [facility] Comment on above: Performed By: #### L 500.2500, L100.0500 ####[facility] [address] [place], [address] MCH (RBC) [Entitic mass] 27.0 pg Normal 27.0-32.0 [facility] Comment on above: Performed By: #### L 500.2500, L100.0500 ####[facility] [address] [place], [address] MCHC (RBC) [Mass/Vol] 31.1 g/dL Low 32-36 [facility] Comment on above: Performed By: #### L 500.2500, L100.0500 ####[facility] [address] [place], [address] MCV (RBC) [Entitic vol] 86.6 fL Normal 80-94 [facility] Comment on above: Performed By: #### L 500.2500, L100.0500 ####[facility] [address] [place], [address] Platelet mean volume (Bld) [Entitic vol] 10.3 fL Normal 6.2-12.0 [facility] Comment on above: Performed By: #### L 500.2500, L100.0500 ####[facility] [address] [place], [address] Platelets (Bld) [#/Vol] 301 10*3/uL Normal 150-450 [facility] Comment on above: Performed By: #### L 500.2500, L100.0500 ####[facility] [address] [place], [address] RBC (Bld) [#/Vol] 4.56 10*6/uL Low 4.6-6.2 [facility] Comment on above: Performed By: #### L 500.2500, L100.0500 ####[facility] [address] [place], [address] RDW SD 48.2 fl High 35.1-43.9 [facility] Comment on above: Performed By: #### L 500.2500, L100.0500 ####[facility] [address] [place], [address] WBC (Bld) [#/Vol] 13.8 10*3/uL High 4.4-11.0 [facility] Comment on above: Performed By: #### L 500.2500, L100.0500 ####[facility] [address] [place], [address] Basic Metabolic Profile (BMP )on 11-27-2023 BUN/CRE 21.2 RATIO High 10-20 [facility] Comment on above: Order Comment: 411.2 Performed By: #### L 500.2500, L100.0500 ####[facility] [address] [place], [address] CA,Total 8.9 mg/dL Normal 8.5-10.1 [facility] Comment on above: Order Comment: 411.2 Performed By: #### L 500.2500, L100.0500 ####[facility] [address] [place], [address] Chloride [Moles/Vol] 105 mmol/L Normal 98-107 [facility] Comment on above: Order Comment: 411.2 Performed By: #### L 500.2500, L100.0500 ####[facility] [address] [place], [address] CO2 [Moles/Vol] 30.0 mmol/L Normal 21.0-32.0 [facility] Comment on above: Order Comment: 411.2 Performed By: #### L 500.2500, L100.0500 ####[facility] [address] [place], [address] Creatinine [Mass/Vol] 0.85 mg/dL Normal 0.70-1.30 [facility] Comment on above: Order Comment: 411.2 Result Comment: The validity of the calculated GFR GFRAA in patients over70 years has not been determined. Clinical correlation isessential. Performed By: #### L 500.2500, L100.0500 ####[facility] [address] [place], [address] EST GFR - AA 114 mL/min Normal >60 [facility] Comment on above: Order Comment: 411.2 Result Comment: Afri can Tunisian GFR Calc Performed By: #### L 500.2500, L100.0500 ####[facility] [address] [place], [address] GAP 5 Normal 5-15 [facility] Comment on above: Order Comment: 411.2 Performed By: #### L 500.2500, L100.0500 ####[facility] [address] [place], [address] GFR/1.73 sq M.predicted among non-blacks MDRD (S/P/Bld) [Vol rate/Area] 94 mL/min/{1.73_m2} Normal >60 [facility] Comment on above: Order Comment: 411.2 Result Comment: Non- GFR Calc Performed By: #### L 500.2500, L100.0500 ####[facility] [address] [place], [address] Glucose [Mass/Vol] 91 mg/dL Normal 74-106 [facility] Comment on above: Order Comment: 411.2 Performed By: #### L 500.2500, L100.0500 ####[facility] [address] [place], [address] Potassium [Moles/Vol] 4.3 mmol/L Normal 3.5-5.1 [facility] Comment on above: Order Comment: 411.2 Performed By: #### L 500.2500, L100.0500 ####[facility] [address] [place], [address] Sodium [Moles/Vol] 140 mmol/L Normal 136-145 [facility] Comment on above: Order Comment: 411.2 Performed By: #### L 500.2500, L100.0500 ####[facility] [address] [place], [address] Urea nitrogen [Mass/Vol] 18 mg/dL Normal 7-18 [facility] Comment on above: Order Comment: 411.2 Performed By: #### L 500.2500, L100.0500 ####[facility] [address] [place], [address] CBC-Complete Blood Cnt No Di ffon 11-27-2023 Erythrocyte distribution width (RBC) [Ratio] 15.0 % High 11.6-14.6 [facility] Comment on above: Order Comment: 411.2 Performed By: #### L 500.2500, L100.0500 ####[facility] [address] [place], [address] Hematocrit (Bld) [Volume fraction] 42.7 % Normal 40-54 [facility] Comment on above: Order Comment: 411.2 Performed By: #### L 500.2500, L100.0500 ####[facility] [address] [place], [address] Hemoglobin (Bld) [Mass/Vol] 13.0 g/dL Normal 13.0-16.5 [facility] Comment on above: Order Comment: 411.2 Performed By: #### L 500.2500, L100.0500 ####[facility] [address] [place], [address] MCH (RBC) [Entitic mass] 26.9 pg Low 27.0-32.0 [facility] Comment on above: Order Comment: 411.2 Performed By: #### L 500.2500, L100.0500 ####[facility] [address] [place], [address] MCHC (RBC) [Mass/Vol] 30.4 g/dL Low 32-36 [facility] Comment on above: Order Comment: 411.2 Performed By: #### L 500.2500, L100.0500 ####[facility] [address] [place], [address] MCV (RBC) [Entitic vol] 88.4 fL Normal 80-94 [facility] Comment on above: Order Comment: 411.2 Performed By: #### L 500.2500, L100.0500 ####[facility] [address] [place], [address] Platelet mean volume (Bld) [Entitic vol] 10.2 fL Normal 6.2-12.0 [facility] Comment on above: Order Comment: 411.2 Performed By: #### L 500.2500, L100.0500 ####[facility] [address] [place], [address] Platelets (Bld) [#/Vol] 328 10*3/uL Normal 150-450 [facility] Comment on above: Order Comment: 411.2 Performed By: #### L 500.2500, L100.0500 ####[facility] [address] [place], [address] RBC (Bld) [#/Vol] 4.83 10*6/uL Normal 4.6-6.2 [facility] Comment on above: Order Comment: 411.2 Performed By: #### L 500.2500, L100.0500 ####[facility] [address] [place], [address] RDW SD 48.8 fl High 35.1-43.9 [facility] Comment on above: Order Comment: 411.2 Performed By: #### L 500.2500, L100.0500 ####[facility] [address] [place], [address] WBC (Bld) [#/Vol] 12.6 10*3/uL High 4.4-11.0 [facility] Comment on above: Order Comment: 411.2 Performed By: #### L 500.2500, L100.0500 ####[facility] [address] [place], [address] Prothrombin Time w/INRon INR Coag (PPP) [Relative time] 1.7 {INR} Normal [facility] Comment on above: Order Comment: 411-2 Performed By: #### L 300.3900 ####[facility] [address] [place], [address] PT Coag (PPP) [Time] 19.5 s High 11.7-14.9 [facility] Comment on above: Order Comment: 411-2 Performed By: #### L 300.3900 ####[facility] [address] [place], [address] CBC-Complete Blood Cnt No Di ffon 11-23-2023 Erythrocyte distribution width (RBC) [Ratio] 14.8 % High 11.6-14.6 [facility] Comment on above: Performed By: #### L 500.4050, L100.0500 ####[facility] [address] [place], [address] Hematocrit (Bld) [Volume fraction] 40.1 % Normal 40-54 [facility] Comment on above: Performed By: #### L 500.4050, L100.0500 ####[facility] [address] [place], [address] Hemoglobin (Bld) [Mass/Vol] 12.4 g/dL Low 13.0-16.5 [facility] Comment on above: Performed By: #### L 500.4050, L100.0500 ####[facility] [address] [place], [address] MCH (RBC) [Entitic mass] 27.0 pg Normal 27.0-32.0 [facility] Comment on above: Performed By: #### L 500.4050, L100.0500 ####[facility] [address] [place], [address] MCHC (RBC) [Mass/Vol] 30.9 g/dL Low 32-36 [facility] Comment on above: Performed By: #### L 500.4050, L100.0500 ####[facility] [address] [place], [address] MCV (RBC) [Entitic vol] 87.4 fL Normal 80-94 [facility] Comment on above: Performed By: #### L 500.4050, L100.0500 ####[facility] [address] [place], [address] Platelet mean volume (Bld) [Entitic vol] 10.4 fL Normal 6.2-12.0 [facility] Comment on above: Performed By: #### L 500.4050, L100.0500 ####[facility] [address] [place], [address] Platelets (Bld) [#/Vol] 278 10*3/uL Normal 150-450 [facility] Comment on above: Performed By: #### L 500.4050, L100.0500 ####[facility] [address] [place], [address] RBC (Bld) [#/Vol] 4.59 10*6/uL Low 4.6-6.2 [facility] Comment on above: Performed By: #### L 500.4050, L100.0500 ####[facility] [address] [place], [address] RDW SD 47.6 fl High 35.1-43.9 [facility] Comment on above: Performed By: #### L 500.4050, L100.0500 ####[facility] [address] [place], [address] WBC (Bld) [#/Vol] 11.9 10*3/uL High 4.4-11.0 [facility] Comment on above: Performed By: #### L 500.4050, L100.0500 ####[facility] [address] [place], [address] Comprehensive Metabolic Prof ilon 11-23-2023 Albumin [Mass/Vol] 2.9 g/dL Low 3.2-5.0 [facility] Comment on above: Performed By: #### L 500.4050, L100.0500 ####[facility] [address] [place], [address] Albumin/Globulin [Mass ratio] 0.8 {ratio} Low 0.9-2.4 [facility] Comment on above: Performed By: #### L 500.4050, L100.0500 ####[facility] [address] [place], [address] ALK P 100 U/L Normal 45-117 [facility] Comment on above: Performed By: #### L 500.4050, L100.0500 ####[facility] [address] [place], [address] ALT [Catalytic activity/Vol] 13 U/L Low 16-61 [facility] Comment on above: Performed By: #### L 500.4050, L100.0500 ####[facility] [address] [place], [address] AST [Catalytic activity/Vol] 10 U/L Low 15-37 [facility] Comment on above: Performed By: #### L 500.4050, L100.0500 ####[facility] [address] [place], [address] Bilirubin [Mass/Vol] 0.30 mg/dL Normal 0.20-1.00 [facility] Comment on above: Result Comment: For patients on eltrombopag therapy, use of Dimension [place] TBIL is not recommended. Performed By: #### L 500.4050, L100.0500 ####[facility] [address] [place], [address] BUN/CRE 22.8 RATIO High 10-20 [facility] Comment on above: Performed By: #### L 500.4050, L100.0500 ####[facility] [address] [place], [address] CA,Total 8.5 mg/dL Normal 8.5-10.1 [facility] Comment on above: Performed By: #### L 500.4050, L100.0500 ####[facility] [address] [place], [address] Chloride [Moles/Vol] 106 mmol/L Normal 98-107 [facility] Comment on above: Performed By: #### L 500.4050, L100.0500 ####[facility] [address] [place], [address] CO2 [Moles/Vol] 29.0 mmol/L Normal 21.0-32.0 [facility] Comment on above: Performed By: #### L 500.4050, L100.0500 ####[facility] [address] [place], [address] Creatinine [Mass/Vol] 0.74 mg/dL Normal 0.70-1.30 [facility] Comment on above: Result Comment: The validity of the calculated GFR GFRAA in patients over70 years has not been determined. Clinical correlation isessential. Performed By: #### L 500.4050, L100.0500 ####[facility] [address] [place], [address] EST GFR - AA 133 mL/min Normal >60 [facility] Comment on above: Result Comment: Afri can Tunisian GFR Calc Performed By: #### L 500.4050, L100.0500 ####[facility] [address] [place], [address] GAP 4 Low 5-15 [facility] Comment on above: Performed By: #### L 500.4050, L100.0500 ####[facility] [address] [place], [address] GFR/1.73 sq M.predicted among non-blacks MDRD (S/P/Bld) [Vol rate/Area] 110 mL/min/{1.73_m2} Normal >60 [facility] Comment on above: Result Comment: Non- GFR Calc Performed By: #### L 500.4050, L100.0500 ####[facility] [address] [place], [address] Globulin (S) [Mass/Vol] 3.8 g/dL Normal 2.2-4.2 [facility] Comment on above: Performed By: #### L 500.4050, L100.0500 ####[facility] [address] [place], [address] Glucose [Mass/Vol] 87 mg/dL Normal 74-106 [facility] Comment on above: Performed By: #### L 500.4050, L100.0500 ####[facility] [address] [place], [address] Potassium [Moles/Vol] 4.2 mmol/L Normal 3.5-5.1 [facility] Comment on above: Performed By: #### L 500.4050, L100.0500 ####[facility] [address] [place], [address] Sodium [Moles/Vol] 139 mmol/L Normal 136-145 [facility] Comment on above: Performed By: #### L 500.4050, L100.0500 ####[facility] [address] [place], [address] T PROT 6.7 g/dL Normal 6.4-8.2 [facility] Comment on above: Performed By: #### L 500.4050, L100.0500 ####[facility] [address] [place], [address] Urea nitrogen [Mass/Vol] 17 mg/dL Normal 7-18 [facility] Comment on above: Performed By: #### L 500.4050, L100.0500 ####[facility] [address] [place], [address] Urine Cultureon 11-23-2023 URC Culture exhibits no growth. Normal [facility] Comment on above: Performed By: #### M 100.2200, L4 ####[facility] [address] [place], [address] Urinalysis, Routine (Dipstic k)on 11-22-2023 BILIRUBIN URINE Negative Normal Negative [facility] Comment on above: Order Comment: CLEAN CATCH Performed By: #### M 100.2200, L4 ####[facility] [address] [place], [address] Clarity (U) Clear Normal Clear [facility] Comment on above: Order Comment: CLEAN CATCH Performed By: #### M 100.2200, L4 ####[facility] [address] [place], [address] Color (U) Yellow Normal Yellow [facility] Comment on above: Order Comment: CLEAN CATCH Performed By: #### M , .2010 ####[facility] [address] [place], [address] GLUCOSE, UR Normal Normal Normal [facility] Comment on above: Order Comment: CLEAN CATCH Performed By: #### M , L4.2010 ####[facility] [address] [place], [address] KETONE UR Negative Normal Negative [facility] Comment on above: Order Comment: CLEAN CATCH Performed By: #### M , L4 ####[facility] [address] [place], [address] LEUK ESTERASE Negative Normal Negative [facility] Comment on above: Order Comment: CLEAN CATCH Performed By: #### M , L4 ####[facility] [address] [place], [address] Nitrite Ql (U) Negative Normal Negative [facility] Comment on above: Order Comment: CLEAN CATCH Performed By: #### M , L4 ####[facility] [address] [place], [address] OCCULT BLOOD-UR Negative Normal Negative [facility] Comment on above: Order Comment: CLEAN CATCH Performed By: #### M , L4 ####[facility] [address] [place], [address] pH UR 6.0 Normal 5.0 - 8.0 [facility] Comment on above: Order Comment: CLEAN CATCH Performed By: #### M , L4 ####[facility] [address] [place], [address] PROT DIPSTX Negative Normal Negative [facility] Comment on above: Order Comment: CLEAN CATCH Performed By: #### M 100.2200, L400.2010 ####[facility] [address] [place], [address] SP.GR. DIPSTX 1.015 Normal 1.002-1.030 [facility] Comment on above: Order Comment: CLEAN CATCH Performed By: #### M 100.0, L4.2010 ####[facility] [address] [place], [address] UROBILI Normal Normal Normal [facility] Comment on above: Order Comment: CLEAN CATCH Performed By: #### M 100.0, ####[facility] [address] [place], [address] Basic Metabolic Profile (BMP )on 11-21-2023 BUN/CRE 23.6 RATIO High 10-20 [facility] Comment on above: Order Comment: 411-2 Performed By: #### L 500.2500, L100.0500 ####[facility] [address] [place], [address] CA,Total 8.7 mg/dL Normal 8.5-10.1 [facility] Comment on above: Order Comment: 411-2 Performed By: #### L 500.2500, L100.0500 ####[facility] [address] [place], [address] Chloride [Moles/Vol] 106 mmol/L Normal 98-107 [facility] Comment on above: Order Comment: 411-2 Performed By: #### L 500.2500, L100.0500 ####[facility] [address] [place], [address] CO2 [Moles/Vol] 26.0 mmol/L Normal 21.0-32.0 [facility] Comment on above: Order Comment: 411-2 Performed By: #### L 500.2500, L100.0500 ####[facility] [address] [place], [address] Creatinine [Mass/Vol] 0.89 mg/dL Normal 0.70-1.30 [facility] Comment on above: Order Comment: 411-2 Result Comment: The validity of the calculated GFR GFRAA in patients over70 years has not been determined. Clinical correlation isessential. Performed By: #### L 500.2500, L100.0500 ####[facility] [address] [place], [address] EST GFR - AA 108 mL/min Normal >60 [facility] Comment on above: Order Comment: 411-2 Result Comment: Afri can Tunisian GFR Calc Performed By: #### L 500.2500, L100.0500 ####[facility] [address] [place], [address] GAP 5 Normal 5-15 [facility] Comment on above: Order Comment: 411-2 Performed By: #### L 500.2500, L100.0500 ####[facility] [address] [place], [address] GFR/1.73 sq M.predicted among non-blacks MDRD (S/P/Bld) [Vol rate/Area] 90 mL/min/{1.73_m2} Normal >60 [facility] Comment on above: Order Comment: 411-2 Result Comment: Non- GFR Calc Performed By: #### L 500.2500, L100.0500 ####[facility] [address] [place], [address] Glucose [Mass/Vol] 98 mg/dL Normal 74-106 [facility] Comment on above: Order Comment: 411-2 Performed By: #### L 500.2500, L100.0500 ####[facility] [address] [place], [address] Potassium [Moles/Vol] 4.2 mmol/L Normal 3.5-5.1 [facility] Comment on above: Order Comment: 411-2 Performed By: #### L 500.2500, L100.0500 ####[facility] [address] [place], [address] Sodium [Moles/Vol] 137 mmol/L Normal 136-145 [facility] Comment on above: Order Comment: 411-2 Performed By: #### L 500.2500, L100.0500 ####[facility] [address] [place], [address] Urea nitrogen [Mass/Vol] 21 mg/dL High 7-18 [facility] Comment on above: Order Comment: 411-2 Performed By: #### L 500.2500, L100.0500 ####[facility] [address] [place], [address] CBC-Complete Blood [facility] Erythrocyte distribution width (RBC) [Ratio] 14.9 % High 11.6-14.6 [facility] Comment on above: Order Comment: 411-2 Performed By: #### L 500.2500, L100.0500 ####[facility] [address] [place], [address] Hematocrit (Bld) [Volume fraction] 38.0 % Low 40-54 [facility] Comment on above: Order Comment: 411-2 Performed By: #### L 500.2500, L100.0500 ####[facility] [address] [place], [address] Hemoglobin (Bld) [Mass/Vol] 12.0 g/dL Low 13.0-16.5 [facility] Comment on above: Order Comment: 411-2 Performed By: #### L 500.2500, L100.0500 ####[facility] [address] [place], [address] MCH (RBC) [Entitic mass] 27.5 pg Normal 27.0-32.0 [facility] Comment on above: Order Comment: 411-2 Performed By: #### L 500.2500, L100.0500 ####[facility] [address] [place], [address] MCHC (RBC) [Mass/Vol] 31.6 g/dL Low 32-36 [facility] Comment on above: Order Comment: 411-2 Performed By: #### L 500.2500, L100.0500 ####[facility] [address] [place], [address] MCV (RBC) [Entitic vol] 87.0 fL Normal 80-94 [facility] Comment on above: Order Comment: 411-2 Performed By: #### L 500.2500, L100.0500 ####[facility] [address] [place], [address] Platelet mean volume (Bld) [Entitic vol] 10.3 fL Normal 6.2-12.0 [facility] Comment on above: Order Comment: 411-2 Performed By: #### L 500.2500, L100.0500 ####[facility] [address] [place], [address] Platelets (Bld) [#/Vol] 282 10*3/uL Normal 150-450 [facility] Comment on above: Order Comment: 411-2 Performed By: #### L 500.2500, L100.0500 ####[facility] [address] [place], [address] RBC (Bld) [#/Vol] 4.37 10*6/uL Low 4.6-6.2 [facility] Comment on above: Order Comment: 411-2 Performed By: #### L 500.2500, L100.0500 ####[facility] [address] [place], [address] RDW SD 47.6 fl High 35.1-43.9 [facility] Comment on above: Order Comment: 411-2 Performed By: #### L 500.2500, L100.0500 ####[facility] [address] [place], [address] WBC (Bld) [#/Vol] 13.3 10*3/uL High 4.4-11.0 [facility] Comment on above: Order Comment: 411-2 Performed By: #### L 500.2500, L100.0500 ####[facility] [address] [place], [address] Prothrombin Time w/INRon INR Coag (PPP) [Relative time] 1.9 {INR} Normal [facility] Comment on above: Order Comment: 411-2 Performed By: #### L 300.3900 ####[facility] [address] [place], [address] PT Coag (PPP) [Time] 21.8 s High 11.7-14.9 [facility] Comment on above: Order Comment: 411-2 Performed By: #### L 300.3900 ####[facility] [address] [place], [address] Prothrombin Time w/INRon INR Coag (PPP) [Relative time] 1.6 {INR} Normal [facility] Comment on above: Order Comment: 411-2 Performed By: #### L 300.3900 ####[facility] [address] [place], [address] PT Coag (PPP) [Time] 18.9 s High 11.7-14.9 [facility] Comment on above: Order Comment: 411-2 Performed By: #### L 300.3900 ####[facility] [address] [place], [address] Prothrombin Time w/INRon INR Coag (PPP) [Relative time] 1.7 {INR} Normal [facility] Comment on above: Order Comment: 411-2 Performed By: #### L 300.3900 ####[facility] [address] [place], [address] PT Coag (PPP) [Time] 20.3 s High 11.7-14.9 [facility] Comment on above: Order Comment: 411-2 Performed By: #### L 300.3900 ####[facility] [address] [place], [address] Prothrombin Time w/INRon INR Coag (PPP) [Relative time] 2.5 {INR} Normal [facility] Comment on above: Order Comment: 411-2 Performed By: #### L 300.3900 ####[facility] [address] [place], [address] PT Coag (PPP) [Time] 26.8 s High 11.7-14.9 [facility] Comment on above: Order Comment: 411-2 Performed By: #### L 300.3900 ####[facility] [address] [place], [address] Prothrombin Time w/INRon INR Coag (PPP) [Relative time] 3.8 {INR} Normal [facility] Comment on above: Performed By: #### L 300.3900 ####[facility] [address] [place], [address] PT Coag (PPP) [Time] 36.8 s High 11.7-14.9 [facility] Comment on above: Performed By: #### L 300.3900 ####[facility] [address] [place], [address] Office Visiton 09-13-2023 Follow-up visit [id number] Tamie Sifuentes 1950 [facility] Provider Department Center 09/13/2023 [id number] [place] [place] [facility] None Family History Problem Relation Age of Onset Heart disease Father Cancer Mother Family Status - Relation Status Age at Father Mother Level of Service:82604 LA OFFICE/OUTPATIENT ESTABLISHED MOD MDM 30 MIN Reason for Visit and Comments: left flank pain [Other] - 8/10 pain when touched Normal [facility] Progress Noteon 09-13-2023 Progress Note Walt Moran 09/13/2023 at 12:05 PM Office follow up PATIENT NAME: Andrew Sifuentes DATE OF : 1950 TODAY'S DATE: 09/13/2023 CHIEF COMPLAINT: Chief Complaint Patient presents with left flank pain 8/10 pain when touched Impression/Plan Diagnosis Plan 1. Left flank pain 2. BPH with urinary obstruction 3. History of kidney stones Flank pain-nl ct no stone or hydro, does not appear to be urologic. Further work up per pcp Bph-doing well on flomax, continue flomax Hx of stones-no sign of recurrence on current ct, cont dietary modification push fluid, see me as needed Follow up for see me as needed. Subjective: HPI Mr. Sifuentes is a 73 y.o. male who presents to the office for follow up. 10/31/21 Consult [facility]-for large pvr/retention- resident placed a 16F Coude catheter without issue for approximately 250cc yellow urine. 12/22/21 ED visit-osteomyelitis 71 y.o. past medical history significant for DVTs, malnutrition, pressure ulcers, and hyperlipidemia 02/15/22-OV [facility]-vt, flomax 08/13/23-NEW PT (Quinn)-left flank pain. No fever chill, no heme. Void well. Still on flomax. Psa, bmp now, flank ct now, call results 09/13/23-ov- ct no mass hydro or stone. Having flank pain , void well on flomax. He did not do psa or bmp. Needs to follow up with pcp to work up pain, it does not appear to be urologic. See me as needed === 09/06/23 === CT ABDOMEN PELVIS WO IV CONTRAST - Impression - CT examination of the abdomen and pelvis is negative for urinary tract stone or obstructive uropathy. Low-attenuation lesions seen within the liver are generally too small to characterize by CT but likely represent multiple hepatic cysts. There are scattered rectosigmoid diverticuli without evidence of acute diverticulitis. A large fat-containing right inguinal hernia is present. Again noted is an inferior vena cava filter, unchanged. Report Dictated on Electronically Signed By: Javier Zamarripa DO Electronically Signed Date/Time: 09/07/2023 2:06 PM EDT Exam No flank mass or tenderness Bladder non tender, non distended Review of Systems Past Medical History: Past Medical History: Diagnosis Date ED (erectile dysfunction) Hemorrhoids Hydrocephalus, adult (CMS/HCC) (HCC) Kidney stone Neuropathy SUPERVISOR POST WAVE (ventriculoperitoneal) shunt status Past Surgical History: Procedure Laterality Date BRAIN SURGERY CHOLECYSTECTOMY COLONOSCOPY HERNIA REPAIR Social History: Social History Socioeconomic History Marital status: Spouse name: Not on file Number of children: Not on file Years of education: Not on file Highest education level: Not on file Occupational History Not on file Tobacco Use Smoking status: Former Packs/day: 1 Types: Cigarettes Smokeless tobacco: Never Substance and Sexual Activity Alcohol use: No Drug use: No Sexual activity: Not on file Other Topics Concern Not on file Social History Narrative Not on file Social Determinants of Health Financial Resource Strain: Not on file Food Insecurity: Not on file Transportation Needs: Not on file Physical Activity: Not on file Stress: Not on file Social Connections: Not on file Intimate Partner Violence: Not on file Housing Stability: Not on file Family History: Family History Problem Relation Name Age of Onset Heart disease Father Cancer Mother Medications Prior to Admission medications Medication Sig Start Date End Date Taking? Authorizing Provider acetaminophen (Tylenol) 325 MG tablet Take 650 mg by mouth in the morning and 650 mg at noon and 650 mg in the evening. Yes Historical Provider, bumetanide (Bumex) 2 MG tablet 09/04/23 Yes Historical Provider, levETIRAcetam (Keppra) 750 MG tablet 09/04/23 Yes Historical Provider, magnesium hydroxide (Milk of Magnesia) 400 MG/5ML suspension Take 30 mL by mouth daily as needed. Yes Historical Provider, Pediatric Multivit-Minerals (Complete Multi-Vitamin) chewable tablet Chew. Yes Historical Provider, potassium chloride CR (Klor-Con M20) 20 MEQ ER tablet 07/29/23 Yes Historical Provider, spironolactone (Aldactone) 50 MG tablet 08/24/23 Yes Historical Provider, tamsulosin (Flomax) 0.4 MG 24 hr capsule 06/30/23 Yes Historical Provider, warfarin (Coumadin) 2.5 MG tablet 08/03/23 Yes Historical Provider, Vitals: Ht 5' 9 (1.753 m) Wt 175 lb (79.4 kg) BMI 25.84 kg/m? Physical Exam: Physical Exam LABS: No results found for: PSAFREE, PSAFREEPCT No results for input(s): PSAFREE, PSAFREEPCT in the last 72 hours. No results found for: TESTOSTERONE Lab Results Component Value Date WBC 14.5 (H) 03/02/2022 HGB 12.1 (L) 03/02/2022 MCV 81.1 03/02/2022 Lab Results Component Value Date GLUCOSE 109 (H) 03/02/2022 CALCIUM 9.1 03/02/2022 NA 140 03/02/2022 K 3.7 03/02/2022 CO2 27 03/02/2022 CL 106 03/02/2022 BUN 22 (H) 03/02/2022 CR (more content not included)... Normal [facility] ABDOMEN PELVIS WO IV CONTRAST Patient Name[facility] 1950 [id number] Exam Date/Time: 09/06/2023 18:14 Procedure: CT ABDOMEN PELVIS WO IV CONTRAST Ordering Provider: BUCK LAWRENCE Reason For Exam: Flank pain, kidney stone suspected CT SCAN OF THE ABDOMEN AND PELVIS WITHOUT CONTRAST: INDICATION: Left flank pain COMPARISON: 10/22/2021. CT scans of the abdomen and pelvis were performed without oral and intravenous contrast administration, with images from the lung bases through the pubic symphysis. The images are reviewed in the axial, sagittal and coronal planes. Dose reduction was employed with automated exposure control. The lung bases are clear. The cardiac silhouette is satisfactory. The liver is normal in echogenicity. Multiple well-circumscribed low-attenuation lesion is present in relation to the liver, many of which are too small to characterize likely represent cysts. There is a stable unusual configuration of the left hepatic lobe which may be a sequela of prior trauma. Historical correlation recommended. The gallbladder is surgically absent. No intra or extrahepatic biliary ductal dilatation is appreciated. The pancreas is unremarkable. The spleen is unremarkable. Evaluation of the upper GI tract demonstrates the stomach to be unremarkable. The duodenum is satisfactory in appearance. The small bowel is unremarkable. There is no mucosal thickening. No zone of transition is appreciated. There is no free fluid nor free air. Evaluation of the colon demonstrate a moderate amount of feces within the colon without colonic distention. There is no mucosal thickening of the colon. The appendix is unremarkable. The adrenal glands and kidneys are unremarkable. There are no mass lesions nor evidence of obstruction. No calculi are seen. Scans through the pelvis scattered rectosigmoid diverticula without evidence of acute diverticulitis. The bladder is unremarkable. The remainder of the pelvic contents are unremarkable. There is no mass or adenopathy. There is no free fluid. There is a large fat-containing right inguinal hernia. 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 The retroperitoneum is satisfactory in appearance. The aorta, inferior vena cava and iliac vessels are satisfactory. IMPRESSION: CT examination of the abdomen and pelvis is negative for urinary tract stone or obstructive uropathy. Low-attenuation lesions seen within the liver are generally too small to characterize by CT but likely represent multiple hepatic cysts. There are scattered rectosigmoid diverticuli without evidence of acute diverticulitis. A large fat-containing right inguinal hernia is present. Again noted is an inferior vena cava filter, unchanged. Report Dictated on Electronically Signed By: Javier Zamarripa DO Electronically Signed Date/Time: 09/07/2023 2:06 PM EDT Pt has a history of kidney stones; currently having pain again like a kidney stone; pt has a hernia [facility] 08-29-2023 36 Lm on daughters vm t o advise them to call the number for the credit risk manager to get clarification, and to call back with further questions [facility] 08-27-2023 36 Yes, they will need to call the number given to them. [facility] 36 Please advise [facility] 08-21-2023 36 Name of caller: Zion h Contact phone number: [phone] Relationship to Patient: patient Provider: MD Quinn Practice: [facility] [place] [place] Urology Chief Complaint/Reason for Call: Shanthi called in to see if Pt would need to come by cot for his CT appt due to Pt being Boaz. TEA did reach out to office and was advised to reach out to Central Scheduling. TEA did reach out to and was advised to let Shanthi know that she would need to reach out to call Maury Cedeño [employer] at [facility] [phone] to get clarifications. CAC did reach back out to [facility] and advised and provider Maury's #. Please advise Best time of day caller can be reached: Any Patient advised that office/PCP has 24-48 business hours to return their call: N/A [facility] Laboratory - CoagulationOrde red By: Carlos Cavazos on 08-21-2023 INR Coag (Bld) [Relative time] 2.7 {INR} [facility] PT Coag (PPP) [Time] 28.9 s 11.7-14.9 [facility] Office Visiton 08-13-2023 Follow-up visit [id number] Tamie Sifuentes cheng Gonzalez 1950 M Date Provider Department Center 08/13/2023 [id number] BUCK [facility] [place] [place] [facility] URO None Family History Problem Relation Age of Onset Heart disease Father Cancer Mother Family Status - Relation Status Age at Father Mother Level of Service:01249 [place] OFFICE/OUTPATIENT NEW MODERATE MDM 45 MINUTES Reason for Visit and Comments: New Patient [542] - Bilateral flank pain, hx of kidney stones Nephrolithiasis [931299] [facility] Progress Noteon 08-13-2023 Progress Note Walt Moran 08/13/2023 at 10:45 AM UROLOGY INITIAL OFFICE VISIT PATIENT NAME: Andrew Sifuentes DATE OF : 1950 TODAY'S DATE: 08/13/2023 Chief Complaint: Chief Complaint Patient presents with New Patient Bilateral flank pain, hx of kidney stones Nephrolithiasis HPI Mr. Sifuentes is a 73 y.o. male who presents with flank pain 10/31/21 Consult [facility]-for large pvr/retention- resident placed a 16F Coude catheter without issue for approximately 250cc yellow urine. 12/22/21 ED visit-osteomyelitis 71 y.o. past medical history significant for DVTs, malnutrition, pressure ulcers, and hyperlipidemia 02/15/22-OV Spear-vt, flomax 08/13/23-NEW PT (Quinn)-left flank pain. No fever chill, no heme. Void well. Still on flomax. Psa, bmp now, flank ct now, call results Review of Systems Constitutional: Negative for unexpected weight change. HENT: Negative for ear pain and trouble swallowing. Eyes: Negative for pain and discharge. Respiratory: Negative for shortness of breath and wheezing. Cardiovascular: Negative for chest pain and palpitations. Gastrointestinal: Negative for anal bleeding and rectal pain. Endocrine: Negative for cold intolerance and heat intolerance. Genitourinary: See HPI Skin: Negative for rash. Neurological: Negative for tremors and weakness. Psychiatric/Behavioral: Negative for suicidal ideas. The patient is not hyperactive. Past Medical History: Past Medical History: Diagnosis Date ED (erectile dysfunction) Hemorrhoids Hydrocephalus, adult (CMS/HCC) (HCC) Kidney stone Neuropathy SUPERVISOR POST WAVE (ventriculoperitoneal) shunt status Past Surgical History: Past Surgical History: Procedure Laterality Date BRAIN SURGERY CHOLECYSTECTOMY COLONOSCOPY HERNIA REPAIR Current Medications: Prior to Admission medications Medication Sig Start Date End Date Taking? Authorizing Provider acetaminophen (Tylenol) 325 MG tablet Take 650 mg by mouth in the morning and 650 mg at noon and 650 mg in the evening. Yes Historical Provider, magnesium hydroxide (Milk of Magnesia) 400 MG/5ML suspension Take 30 mL by mouth daily as needed. Yes Historical Provider, potassium chloride CR (Klor-Con M20) 20 MEQ ER tablet 07/29/23 Yes Historical Provider, tamsulosin (Flomax) 0.4 MG 24 hr capsule 06/30/23 Yes Historical Provider, warfarin (Coumadin) 2.5 MG tablet 08/03/23 Yes Historical Provider, Allergies: Alcohol, Cortisone, Morphine, and Latex Social History: Social History Socioeconomic History Marital status: Spouse name: Not on file Number of children: Not on file Years of education: Not on file Highest education level: Not on file Occupational History Not on file Tobacco Use Smoking status: Former Packs/day: 1 Types: Cigarettes Smokeless tobacco: Never Substance and Sexual Activity Alcohol use: No Drug use: No Sexual activity: Not on file Other Topics Concern Not on file Social History Narrative Not on file Social Determinants of Health Financial Resource Strain: Not on file Food Insecurity: Not on file Transportation Needs: Not on file Physical Activity: Not on file Stress: Not on file Social Connections: Not on file Intimate Partner Violence: Not on file Housing Stability: Not on file Family History: Family History Problem Relation Name Age of Onset Heart disease Father Cancer Mother VITALS: Ht 5' 9 (1.753 m) Wt 175 lb (79.4 kg) BMI 25.84 kg/m? Physical Exam Constitutional: Patient is oriented to person, place, and time. Patient appears well-developed and well-nourished. No distress. HENT: Head: Normocephalic and atraumatic. Eyes: Pupils are equal, round, and reactive to light. EOM are normal. No scleral icterus. Neck: Normal range of motion. Neck supple. No JVD present. Cardiovascular: Normal rate and regular rhythm. Pulmonary/Chest: Effort normal. No respiratory distress. Abdominal: Soft. Exhibits no distension and no mass. There is no rebound. Genitourinary: No flank mass or tenderness Bladder non tender, non distended . Neurological: Is alert and oriented to person, place, and time. Skin: Skin is warm and dry. Psychiatric: Has a normal mood and affect. Judgment normal. DATA: LABS: No results found for: PSAFREE, PSAFREEPCT No results for input(s): PSAFREE, PSAFREEPCT in the last 72 hours. No results found for: TESTOSTERONE Lab Results Component Value Date WBC 14.5 (H) 03/02/2022 HGB 12.1 (L) 03/02/2022 MCV 81.1 03/02/2022 Lab Results Component Value Date GLUCOSE 109 (H) 03/02/2022 CALCIUM 9.1 03/02/2022 NA 140 03/02/2022 K 3.7 03/02/2022 CO2 27 03/02/2022 CL 106 03/02/2022 BUN 22 (H) 03/02/2022 CREATININE 0.63 03/02/2022 No components found for: LABURIN @[email or web address]@ Radiology Review: Impression: Diagnosis Plan 1. Left flank pain CT abdomen pelvis wo IV contrast 2. Calculus of ureter Basic metabolic panel CT ab (more content not included)... Normal [facility] No Panel InformationOrdered By: Carlos Cavazos on 08-03-2023 Levetiracetam (Keppra) Level 32.4 ug/mL 10.0-40.0 [facility] Comment on above: Performed at: - [address] [id number] Director: Alpesh Vázquez MD, Phone: [phone] Basophil percentageOrdered B y: Carlos Cavazos on 07-20-2023 Chloride [Moles/Vol] 106 mmol/L 98-107 [facility] Glucose [Mass/Vol] 98 mg/dL 74-106 [facility] Hemoglobin (Bld) [Mass/Vol] 12.5 g/dL 13.0-16.5 [facility] Potassium [Moles/Vol] 4.3 mmol/L 3.5-5.1 [facility] Sodium [Moles/Vol] 135 mmol/L 136-145 [facility] WBC (Bld) [#/Vol] 13.0 10*3/uL 4.4-11.0 [facility] Determination of erythrocyte mean corpuscular volume (MCV)Ordered By: Carlos Cavazos on 07-20-2023 MCV (RBC) [Entitic vol] 86.2 fL 80-94 [facility] Erythrocyte distribution wid th ratioOrdered By: Carlos Cavazos on 07-20-2023 Erythrocyte distribution width (RBC) [Ratio] 15.3 % 11.6-14.6 [facility] Erythrocyte distribution wid th standard deviationOrdered By: Carlos Cavazos on 07-20-2023 Erythrocyte distribution width (RBC) [Entitic vol] 48.1 fL 35.1-43.9 [facility] Hematocrit Auto (Bld) [Volum e fraction]Ordered By: Carlos Cavazos on 07-20-2023 Hematocrit (Bld) [Volume fraction] 39.9 % 40-54 [facility] Laboratory - Chemistry and C hemistry - challengeOrdered By: Carlos Cavazos on 07-20-2023 CO2 [Moles/Vol] 24.0 mmol/L 21.0-32.0 [facility] Urea nitrogen/Creatinine [Mass ratio] 24.6 mg/mg 10-20 [facility] Laboratory - Hematology and Cell countsOrdered By: Carlos Cavazos on 07-20-2023 MCH (RBC) [Entitic mass] 27.0 pg 27.0-32.0 [facility] MCHC (RBC) [Mass/Vol] 31.3 g/dL 32-36 [facility] Platelet mean volume (Bld) [Entitic vol] 10.7 fL 6.2-12.0 [facility] Platelets (Bld) [#/Vol] 260 10*3/uL 150-450 [facility] No Panel InformationOrdered By: Carlos Cavazos on 07-20-2023 Estimated GFR (MDRD) Amer 114 mL/min >60 [facility] Comment on above: GFR Calc Estimated GFR (MDRD) Non-Af Amer 94 mL/min >60 [facility] Comment on above: Non- GFR Calc RBC Auto (Bld) [#/Vol]Ordere d By: Carlos Cavazos on 07-20-2023 RBC (Bld) [#/Vol] 4.63 10*6/uL 4.6-6.2 [facility] Serum or plasma calcium oral urement (mass/volume)Ordered By: Carlos Cavazos on 07-20-2023 Calcium [Mass/Vol] 8.6 mg/dL 8.5-10.1 [facility] Serum or plasma creatinine m easurement (mass/volume)Ordered By: Carlos Cavazos on 07-20-2023 Creatinine [Mass/Vol] 0.85 mg/dL 0.70-1.30 [facility] Comment on above: The validity of the calculated GFR & GFRAA in patients over 70 years has not been determined. Clinical correlation is essential. Serum or plasma urea nitroge n measurement (mass/volume)Ordered By: Carlos Cavazos on 07-20-2023 Urea nitrogen [Mass/Vol] 21 mg/dL 7-18 [facility] Thin prep Papanicolaou smear with manual screeningOrdered By: Carlos Cavazos on 07-20-2023 Thin prep Papanicolaou smear with manual screening 5 5-15 [facility] Basophil percentageOrdered B y: Carlos Cavazos on 07-18-2023 Chloride [Moles/Vol] 102 mmol/L 98-107 [facility] Glucose [Mass/Vol] 96 mg/dL 74-106 [facility] Hemoglobin (Bld) [Mass/Vol] 12.3 g/dL 13.0-16.5 [facility] Potassium [Moles/Vol] 4.2 mmol/L 3.5-5.1 [facility] Sodium [Moles/Vol] 136 mmol/L 136-145 [facility] WBC (Bld) [#/Vol] 14.7 10*3/uL 4.4-11.0 [facility] Determination of erythrocyte mean corpuscular volume (MCV)Ordered By: Carlos Cavazos on 07-18-2023 MCV (RBC) [Entitic vol] 85.4 fL 80-94 [facility] Erythrocyte distribution wid th ratioOrdered By: Carlos Cavazos on 07-18-2023 Erythrocyte distribution width (RBC) [Ratio] 15.1 % 11.6-14.6 [facility] Erythrocyte distribution wid th standard deviationOrdered By: Carlos Cavazos on 07-18-2023 Erythrocyte distribution width (RBC) [Entitic vol] 47.3 fL 35.1-43.9 [facility] Hematocrit Auto (Bld) [Volum e fraction]Ordered By: Carlos Cavazos on 07-18-2023 Hematocrit (Bld) [Volume fraction] 39.3 % 40-54 [facility] Laboratory - Chemistry and C hemistry - challengeOrdered By: Carlos Cavazos on 07-18-2023 CO2 [Moles/Vol] 27.0 mmol/L 21.0-32.0 [facility] Urea nitrogen/Creatinine [Mass ratio] 24.4 mg/mg 10-20 [facility] Laboratory - Hematology and Cell countsOrdered By: Carlos Cavazos on 07-18-2023 MCH (RBC) [Entitic mass] 26.7 pg 27.0-32.0 [facility] MCHC (RBC) [Mass/Vol] 31.3 g/dL 32-36 [facility] Platelet mean volume (Bld) [Entitic vol] 10.3 fL 6.2-12.0 [facility] Platelets (Bld) [#/Vol] 288 10*3/uL 150-450 [facility] No Panel InformationOrdered By: Carlos Cavazos on 07-18-2023 Estimated GFR (MDRD) Amer 113 mL/min >60 [facility] Comment on above: GFR Calc Estimated GFR (MDRD) Non-Af Amer 93 mL/min >60 [facility] Comment on above: Non- GFR Calc RBC Auto (Bld) [#/Vol]Ordere d By: Carlos Cavazos on 07-18-2023 RBC (Bld) [#/Vol] 4.60 10*6/uL 4.6-6.2 [facility] Serum or plasma calcium oral urement (mass/volume)Ordered By: Carlos Cavazos on 07-18-2023 Calcium [Mass/Vol] 8.9 mg/dL 8.5-10.1 [facility] Serum or plasma creatinine m easurement (mass/volume)Ordered By: Carlos Cavazos on 07-18-2023 Creatinine [Mass/Vol] 0.86 mg/dL 0.70-1.30 [facility] Comment on above: The validity of the calculated GFR & GFRAA in patients over 70 years has not been determined. Clinical correlation is essential. Serum or plasma urea nitroge n measurement (mass/volume)Ordered By: Carlos Cavazos on 07-18-2023 Urea nitrogen [Mass/Vol] 21 mg/dL 7-18 [facility] Thin prep Papanicolaou smear with manual screeningOrdered By: Carlos Cavazos on 07-18-2023 Thin prep Papanicolaou smear with manual screening 7 5-15 [facility] Basophil percentageOrdered B y: Carlos Cavazos on 07-17-2023 Basophil percentage 0-5 SEEN /hpf 0-5 [facility] Bilirubin Test strip Ql (U)O rdered By: Carlos Cavazos on 07-17-2023 Bilirubin Ql (U) Negative Negative [facility] Calcium oxalate crystals det ection in urine sediment by light microscopyOrdered By: Carlos Cavazos on 07-17-2023 Calcium oxalate crystals LM Ql (Urine sed) 1+ /hpf [facility] Culture, urineOrdered By: Sharif Crouch on 07-17-2023 Bacteria identified Cx Nom (U) Positive [facility] Ketones Test strip Ql (U)Ord ered By: Carlos Cavazos on 07-17-2023 Ketones Ql (U) Negative Negative [facility] Mucus LM Ql (Urine sed)Order ed By: Carlos Cavazos on 07-17-2023 Mucus Ql (Urine sed) 0 SEEN /hpf [facility] Nitrite Test strip Ql (U)Ord ered By: Carlos Cavazos on 07-17-2023 Nitrite Ql (U) Negative Negative [facility] No Panel InformationOrdered By: Carlos Cavazos on 07-17-2023 Urine RBC 0 SEEN /hpf 0-5 [facility] Protein Test strip Ql (U)Ord ered By: Carlos Cavazos on 07-17-2023 Protein Ql (U) Negative Negative [facility] Squamous epithelial cells de tection in urine sediment by light microscopyOrdered By: Carlos Cavazos on 07-17-2023 Epithelial cells.squamous LM Ql (Urine sed) 0-5 SEEN /hpf 0-5 [facility] Urine blood detectionOrdered By: Carlos Cavazos on 07-17-2023 RBC Ql (U) Negative Negative [facility] Urine clarityOrdered By: Ted Cavazos on 07-17-2023 Clarity (U) Clear Clear [facility] Urine color determinationOrd ered By: Carlos Cavazos on 07-17-2023 Color (U) Yellow Yellow [facility] Urine glucose detectionOrder ed By: Carlos Cavazos on 07-17-2023 Glucose Ql (U) Normal mg/dl Normal [facility] Urine leukocyte esterase det ection by dipstickOrdered By: Carlos Cavazos on 07-17-2023 Leukocyte esterase Test strip Ql (U) 25 /ul Negative [facility] Urine pHOrdered By: Carlos flores on 07-17-2023 pH (U) 6.0 [pH] 5.0 - 8.0 [facility] Urine sediment bacteria coun t by microscopy (number/high power field)Ordered By: Carlos Cavazos on 07-17-2023 Bacteria LM.HPF (Urine sed) [#/Area] 0 /[HPF] None Seen [facility] Urine specific gravity measu rementOrdered By: Carlos Cavazos on 07-17-2023 Specific gravity (U) [Rel density] 1.020 1.002-1.030 [facility] Urine urobilinogen measureme ntOrdered By: Carlos Cavazos on 07-17-2023 Urobilinogen Ql (U) Normal mg/dl Normal [facility] Absolute lymphocyte countOrd ered By: Carlos Cavazos on 07-16-2023 Lymphocytes Auto (Unsp spec) [#/Vol] 6.02 10*3/uL 0.83-4.51 [facility] Automated lymphocyte count a s percentage of total leukocytesOrdered By: Carlos Cavazos on 07-16-2023 Lymphocytes/100 WBC Auto (Unsp spec) 49.1 % 19-41 [facility] Basophil percentageOrdered B y: Carlos Cavazos on 07-16-2023 Basophils/100 WBC (Bld) 0.6 % 0-1 [facility] Chloride [Moles/Vol] 105 mmol/L 98-107 [facility] Eosinophils/100 WBC (Bld) 2.0 % 0-5 [facility] Glucose [Mass/Vol] 93 mg/dL 74-106 [facility] Hemoglobin (Bld) [Mass/Vol] 12.1 g/dL 13.0-16.5 [facility] Monocytes/100 WBC (Bld) 5.3 % 0-10 [facility] Neutrophils (Bld) [#/Vol] 5.2 10*3/uL 2.0-7.7 [facility] Neutrophils/100 WBC (Bld) 42.8 % 47-70 [facility] Potassium [Moles/Vol] 4.3 mmol/L 3.5-5.1 [facility] Sodium [Moles/Vol] 138 mmol/L 136-145 [facility] WBC (Bld) [#/Vol] 12.3 10*3/uL 4.4-11.0 [facility] Blood manual differential co mment interpretation (narrative result)Ordered By: Carlos Cavazos on 07-16-2023 Manual differential comment Shemar (Bld) [Interp] SCANNED [facility] Determination of erythrocyte mean corpuscular volume (MCV)Ordered By: Carlos Cavazos on 07-16-2023 MCV (RBC) [Entitic vol] 86.8 fL 80-94 [facility] Erythrocyte distribution wid th ratioOrdered By: Carlos Cavazos on 07-16-2023 Erythrocyte distribution width (RBC) [Ratio] 15.3 % 11.6-14.6 [facility] Erythrocyte distribution wid th standard deviationOrdered By: Carlos Cavazos on 07-16-2023 Erythrocyte distribution width (RBC) [Entitic vol] 48.9 fL 35.1-43.9 [facility] Hematocrit Auto (Bld) [Volum e fraction]Ordered By: Carlos Cavazos on 07-16-2023 Hematocrit (Bld) [Volume fraction] 38.7 % 40-54 [facility] Immature granulocytes/100 WB C Auto (Bld)Ordered By: Carlos Cavazos on 07-16-2023 Immature granulocytes/100 WBC (Bld) 0.200 % 0.0-0.9 [facility] Comment on above: IG% - Immature Granu locytes (promyelocytes, myelocytes and metamyelocytes) > 1% indicates that a LEFT SHIFT is Present. Laboratory - Chemistry and C hemistry - challengeOrdered By: Carlos Cavazos on 07-16-2023 CO2 [Moles/Vol] 25.0 mmol/L 21.0-32.0 [facility] Urea nitrogen/Creatinine [Mass ratio] 21.0 mg/mg 10-20 [facility] Laboratory - CoagulationOrde red By: Carlos Cavazos on 07-16-2023 INR Coag (Bld) [Relative time] 2.4 {INR} [facility] PT Coag (PPP) [Time] 25.7 s 11.7-14.9 [facility] Laboratory - Hematology and Cell countsOrdered By: Carlos Cavazos on 07-16-2023 MCH (RBC) [Entitic mass] 27.1 pg 27.0-32.0 [facility] MCHC (RBC) [Mass/Vol] 31.3 g/dL 32-36 [facility] Nucleated RBC/100 WBC (Bld) [Ratio] 0 % 0-5 [facility] Platelet mean volume (Bld) [Entitic vol] 10.5 fL 6.2-12.0 [facility] Platelets (Bld) [#/Vol] 289 10*3/uL 150-450 [facility] No Panel InformationOrdered By: Carlos Cavazos on 07-16-2023 Estimated GFR (MDRD) Amer 106 mL/min >60 [facility] Comment on above: GFR Calc Estimated GFR (MDRD) Non-Af Amer 88 mL/min >60 [facility] Comment on above: Non- GFR Calc Reactive Lymphocytes 1+ [facility] RBC Auto (Bld) [#/Vol]Ordere d By: Carlos Cavazos on 07-16-2023 RBC (Bld) [#/Vol] 4.46 10*6/uL 4.6-6.2 [facility] Serum or plasma calcium oral urement (mass/volume)Ordered By: Carlos Cavazos on 07-16-2023 Calcium [Mass/Vol] 9.0 mg/dL 8.5-10.1 [facility] Serum or plasma creatinine m easurement (mass/volume)Ordered By: Carlos Cavazos on 07-16-2023 Creatinine [Mass/Vol] 0.90 mg/dL 0.70-1.30 [facility] Comment on above: The validity of the calculated GFR & GFRAA in patients over 70 years has not been determined. Clinical correlation is essential. Serum or plasma urea nitroge n measurement (mass/volume)Ordered By: Carlos Cavazos on 07-16-2023 Urea nitrogen [Mass/Vol] 19 mg/dL 7-18 [facility] Thin prep Papanicolaou smear with manual screeningOrdered By: Carlos Cavazos on 07-16-2023 Thin prep Papanicolaou smear with manual screening 8 5-15 [facility] Absolute lymphocyte countOrd ered By: Carlos Cavazos on 07-13-2023 Lymphocytes Auto (Unsp spec) [#/Vol] 5.44 10*3/uL 0.83-4.51 [facility] Automated lymphocyte count a s percentage of total leukocytesOrdered By: Carlos Cavazos on 07-13-2023 Lymphocytes/100 WBC Auto (Unsp spec) 47.3 % 19-41 [facility] Basophil percentageOrdered B y: Carlos Cavazos on 07-13-2023 Basophils/100 WBC (Bld) 0.4 % 0-1 [facility] Chloride [Moles/Vol] 107 mmol/L 98-107 [facility] Eosinophils/100 WBC (Bld) 1.7 % 0-5 [facility] Glucose [Mass/Vol] 96 mg/dL 74-106 [facility] Hemoglobin (Bld) [Mass/Vol] 13.5 g/dL 13.0-16.5 [facility] Monocytes/100 WBC (Bld) 4.3 % 0-10 [facility] Neutrophils (Bld) [#/Vol] 5.3 10*3/uL 2.0-7.7 [facility] Neutrophils/100 WBC (Bld) 46.0 % 47-70 [facility] Potassium [Moles/Vol] 4.0 mmol/L 3.5-5.1 [facility] Sodium [Moles/Vol] 139 mmol/L 136-145 [facility] WBC (Bld) [#/Vol] 11.5 10*3/uL 4.4-11.0 [facility] Determination of erythrocyte mean corpuscular volume (MCV)Ordered By: Carlos Cavazos on 07-13-2023 MCV (RBC) [Entitic vol] 86.1 fL 80-94 [facility] Erythrocyte distribution wid th ratioOrdered By: Carlos Cavazos on 07-13-2023 Erythrocyte distribution width (RBC) [Ratio] 15.2 % 11.6-14.6 [facility] Erythrocyte distribution wid th standard deviationOrdered By: Carlos Cavazos on 07-13-2023 Erythrocyte distribution width (RBC) [Entitic vol] 48.0 fL 35.1-43.9 [facility] Hematocrit Auto (Bld) [Volum e fraction]Ordered By: Carlos Cavazos on 07-13-2023 Hematocrit (Bld) [Volume fraction] 42.2 % 40-54 [facility] Immature granulocytes/100 WB C Auto (Bld)Ordered By: Carlos Cavazos on 07-13-2023 Immature granulocytes/100 WBC (Bld) 0.300 % 0.0-0.9 [facility] Comment on above: IG% - Immature Granu locytes (promyelocytes, myelocytes and metamyelocytes) > 1% indicates that a LEFT SHIFT is Present. Laboratory - Chemistry and C hemistry - challengeOrdered By: Carlos Cavazos on 07-13-2023 CO2 [Moles/Vol] 26.0 mmol/L 21.0-32.0 [facility] Urea nitrogen/Creatinine [Mass ratio] 21.8 mg/mg 10-20 [facility] Laboratory - Hematology and Cell countsOrdered By: Carlos Cavazos on 07-13-2023 MCH (RBC) [Entitic mass] 27.6 pg 27.0-32.0 [facility] MCHC (RBC) [Mass/Vol] 32.0 g/dL 32-36 [facility] Nucleated RBC/100 WBC (Bld) [Ratio] 0 % 0-5 [facility] Platelet mean volume (Bld) [Entitic vol] 10.1 fL 6.2-12.0 [facility] Platelets (Bld) [#/Vol] 279 10*3/uL 150-450 [facility] No Panel InformationOrdered By: Carlos Cavazos on 07-13-2023 Estimated GFR (MDRD) Amer 118 mL/min >60 [facility] Comment on above: GFR Calc Estimated GFR (MDRD) Non-Af Amer 98 mL/min >60 [facility] Comment on above: Non- GFR Calc Levetiracetam (Keppra) Level 25.5 ug/mL 10.0-40.0 [facility] Comment on above: Performed at: [address] [id number] Director: Alpesh Vázquez MD, Phone: [phone] RBC Auto (Bld) [#/Vol]Ordere d By: Carlos Cavazos on 07-13-2023 RBC (Bld) [#/Vol] 4.90 10*6/uL 4.6-6.2 [facility] Serum or plasma calcium oral urement (mass/volume)Ordered By: Carlos Cavazos on 07-13-2023 Calcium [Mass/Vol] 9.1 mg/dL 8.5-10.1 [facility] Serum or plasma creatinine m easurement (mass/volume)Ordered By: Carlos Cavazos on 07-13-2023 Creatinine [Mass/Vol] 0.82 mg/dL 0.70-1.30 [facility] Comment on above: The validity of the calculated GFR & GFRAA in patients over 70 years has not been determined. Clinical correlation is essential. Serum or plasma urea nitroge n measurement (mass/volume)Ordered By: Carlso Cavazos on 07-13-2023 Urea nitrogen [Mass/Vol] 18 mg/dL 7-18 [facility] Thin prep Papanicolaou smear with manual screeningOrdered By: Carlos Cavazos on 07-13-2023 Thin prep Papanicolaou smear with manual screening 6 5-15 [facility] No Panel InformationOrdered By: Carlos Cavazos on 07-12-2023 Valproic Acid (Depakene) Level < 3 ug/mL 50-100 [facility] Laboratory - CoagulationOrde red By: Carlos Cavazos on 07-05-2023 INR Coag (Bld) [Relative time] 2.4 {INR} [facility] PT Coag (PPP) [Time] 26.3 s 11.7-14.9 [facility] Laboratory - CoagulationOrde red By: Carlos Cavazos on 07-02-2023 INR Coag (Bld) [Relative time] 1.5 {INR} [facility] PT Coag (PPP) [Time] 18.5 s 11.7-14.9 [facility] Laboratory - CoagulationOrde red By: Carlos Cavazos on 06-28-2023 INR Coag (Bld) [Relative time] 1.7 {INR} [facility] PT Coag (PPP) [Time] 20.5 s 11.7-14.9 [facility] 36on 06-25-[address] [place] [address] called in stating appt scheduled 07/10/23 Guy has to be made further out, pt being transported by cot. Changed appt to 08/13/[address] [facility] only avail time for transport, first avail with DR Buck at 10:00 AM. [facility] Laboratory - CoagulationOrde red By: Carlos Cavazos on 06-25-2023 INR Coag (Bld) [Relative time] 3.8 {INR} [facility] PT Coag (PPP) [Time] 38.2 s 11.7-14.9 [facility] Laboratory - CoagulationOrde red By: Carlos Cavazos on 06-21-2023 INR Coag (Bld) [Relative time] 3.2 {INR} [facility] PT Coag (PPP) [Time] 32.9 s 11.7-14.9 [facility] No Panel InformationOrdered By: Carlos Cavazos on 06-13-2023 Valproic Acid (Depakene) Level < 3 ug/mL 50-100 [facility] Laboratory - CoagulationOrde red By: Carlos Cavazos on 06-06-2023 PT Coag (PPP) [Time] 30.5 s 11.7-14.9 [facility] Platelet poor plasma interna tional normalized ratio (INR)Ordered By: Carlos Cavazos on 06-06-2023 INR Coag (PPP) [Relative time] 2.9 {INR} [facility] International normalized rat io (INR) calculationOrdered By: Carlos Cavazos on 05-23-2023 INR Coag (PPP) [Relative time] 2.6 {INR} [facility] Laboratory - CoagulationOrde red By: Carlos Cavazos on 05-23-2023 PT Coag (PPP) [Time] 27.7 s 11.7-14.9 [facility] Laboratory - CoagulationOrde red By: Carlos Cavazos on 05-09-2023 PT Coag (PPP) [Time] 24.1 s 11.7-14.9 [facility] Whole blood international no rmalized ratio (INR)Ordered By: Carlos Cavazos on 05-09-2023 INR Coag (Bld) [Relative time] 2.1 {INR} [facility] Laboratory - CoagulationOrde red By: Carlos Cavazos on 04-23-2023 PT Coag (PPP) [Time] 26.4 s 11.7-14.9 [facility] Whole blood international no rmalized ratio (INR)Ordered By: Carlos Cavazos on 04-23-2023 INR Coag (Bld) [Relative time] 2.4 {INR} [facility] INR in Blood by Coagulation assayOrdered By: Carlos Cavazos on 04-09-2023 INR Coag (Bld) [Relative time] 2.1 {INR} [facility] Laboratory - CoagulationOrde red By: Carlos Cavazos on 04-09-2023 PT Coag (PPP) [Time] 23.9 s 11.7-14.9 [facility] INR in Blood by Coagulation assayOrdered By: Carlos Cavazos on 04-02-2023 INR Coag (Bld) [Relative time] 2.2 {INR} [facility] Laboratory - CoagulationOrde red By: Carlos Cavazos on 04-02-2023 PT Coag (PPP) [Time] 24.5 s 11.7-14.9 [facility] INR in Blood by Coagulation assayOrdered By: Carlos Cavazos on 03-26-2023 INR Coag (Bld) [Relative time] 1.7 {INR} [facility] Laboratory - CoagulationOrde red By: Carlos Cavazos on 03-26-2023 PT Coag (PPP) [Time] 19.9 s 11.7-14.9 [facility] INR in Blood by Coagulation assayOrdered By: Carlos Cavazos on 03-22-2023 INR Coag (Bld) [Relative time] 1.3 {INR} [facility] Laboratory - CoagulationOrde red By: Carlos Cavazos on 03-22-2023 PT Coag (PPP) [Time] 16.4 s 11.7-14.9 [facility] INR in Blood by Coagulation assayOrdered By: Carlos Cavazos on 03-08-2023 INR Coag (Bld) [Relative time] 2.0 {INR} [facility] Laboratory - CoagulationOrde red By: Carlos Cavazos on 03-08-2023 PT Coag (PPP) [Time] 22.5 s 11.7-14.9 [facility] Laboratory - CoagulationOrde red By: Carlos Cavazos on 02-22-2023 INR Coag (Bld) [Relative time] 2.2 {INR} [facility] Comment on above: Critical Value > 4.0 Whole blood prothrombin time Ordered By: Carlos Cavazos on 02-22-2023 PT Coag (Bld) [Time] 24.0 s 11.7-14.9 [facility] INR in Blood by Coagulation assayOrdered By: Cliff Bruner on 02-15-2023 INR Coag (Bld) [Relative time] 2.0 {INR} [facility] Laboratory - CoagulationOrde red By: Cliff Bruner on 02-15-2023 PT Coag (PPP) [Time] 22.8 s 11.7-14.9 [facility] INR in Blood by Coagulation assayOrdered By: Carlos Cavazos on 02-08-2023 INR Coag (Bld) [Relative time] 2.1 {INR} [facility] Laboratory - CoagulationOrde red By: Carlos Cavazos on 02-08-2023 PT Coag (PPP) [Time] 23.5 s 11.7-14.9 [facility] INR in Blood by Coagulation assayOrdered By: Carlos Cavazos on 01-31-2023 INR Coag (Bld) [Relative time] 2.0 {INR} [facility] Laboratory - CoagulationOrde red By: Carlos Cavazos on 01-31-2023 PT Coag (PPP) [Time] 22.4 s 11.7-14.9 [facility] Laboratory - CoagulationOrde red By: Carlos Cavazos on 01-29-2023 INR Coag (Bld) [Relative time] 1.8 {INR} [facility] Comment on above: Critical Value > 4.0 Whole blood prothrombin time Ordered By: Carlos Cavazos on 01-29-2023 PT Coag (Bld) [Time] 19.9 s 11.7-14.9 [facility] INR in Blood by Coagulation assayOrdered By: Carlos Cavazos on 01-26-2023 INR Coag (Bld) [Relative time] 1.5 {INR} [facility] Laboratory - CoagulationOrde red By: Carlos Cavazos on 01-26-2023 PT Coag (PPP) [Time] 18.3 s 11.7-14.9 [facility] INR in Blood by Coagulation assayOrdered By: Carlos Cavazos on 01-24-2023 INR Coag (Bld) [Relative time] 1.3 {INR} [facility] Laboratory - CoagulationOrde red By: Carlos Cavazos on 01-24-2023 PT Coag (PPP) [Time] 16.2 s 11.7-14.9 [facility] Basophil percentageOrdered B y: Carlos Cavazos on 01-22-2023 Basophil percentage 0 SEEN /hpf 0-5 [facility] Bilirubin Test strip Ql (U)O rdered By: Carlos Cavazos on 01-22-2023 Bilirubin Ql (U) Negative Negative [facility] Calcium oxalate crystals det ection in urine sediment by light microscopyOrdered By: Carlos Cavazos on 01-22-2023 Calcium oxalate crystals LM Ql (Urine sed) 1+ /hpf [facility] Culture, urineOrdered By: Sharif Crouch on 01-22-2023 Bacteria identified Cx Nom (U) Positive [facility] Ketones Test strip Ql (U)Ord ered By: Carlos Cavazos on 01-22-2023 Ketones Ql (U) Negative Negative [facility] Mucus LM Ql (Urine sed)Order ed By: Carlos Cavazos on 01-22-2023 Mucus Ql (Urine sed) 1+ /hpf [facility] Nitrite Test strip Ql (U)Ord ered By: Carlos Cavazos on 01-22-2023 Nitrite Ql (U) Negative Negative [facility] Protein Test strip Ql (U)Ord ered By: Carlos Cavazos on 01-22-2023 Protein Ql (U) Negative Negative [facility] Squamous epithelial cells de tection in urine sediment by light microscopyOrdered By: Carlos Cavazos on 01-22-2023 Epithelial cells.squamous LM Ql (Urine sed) 0 SEEN /hpf 0-5 [facility] Urine blood detectionOrdered By: Carlos Cavazos on 01-22-2023 RBC Ql (U) Negative Negative [facility] RBC Ql (U) 0 SEEN /hpf 0-5 [facility] Urine clarityOrdered By: Ted Cavazos on 01-22-2023 Clarity (U) Sl. Cloudy Clear [facility] Urine color determinationOrd ered By: Carlos Cavazos on 01-22-2023 Color (U) Yellow Yellow [facility] Urine glucose detectionOrder ed By: Carlos Cavazos on 01-22-2023 Glucose Ql (U) Normal mg/dl Normal [facility] Urine leukocyte esterase det ection by dipstickOrdered By: Carlos Cavazos on 01-22-2023 Leukocyte esterase Test strip Ql (U) Negative Negative [facility] Urine pHOrdered By: Carlos flores on 01-22-2023 pH (U) 5.0 [pH] 5.0 - 8.0 [facility] Urine sediment bacteria coun t by microscopy (number/high power field)Ordered By: Carlos Cavazos on 01-22-2023 Bacteria LM.HPF (Urine sed) [#/Area] 2 /[HPF] None Seen [facility] Urine specific gravity measu rementOrdered By: Carlos Cavazos on 01-22-2023 Specific gravity (U) [Rel density] 1.025 1.002-1.030 [facility] Urobilinogen Auto test strip Ql (U)Ordered By: Carlos Cavazos on 01-22-2023 Urobilinogen Ql (U) Normal mg/dl Normal [facility] INR in Blood by Coagulation assayOrdered By: Carlos Cavazos on 01-10-2023 INR Coag (Bld) [Relative time] 2.0 {INR} [facility] Laboratory - CoagulationOrde red By: Carlos Cavazos on 01-10-2023 PT Coag (PPP) [Time] 22.6 s 11.7-14.9 [facility] INR in Blood by Coagulation assayOrdered By: Carlos Cavazos on 12-27-2022 INR Coag (Bld) [Relative time] 2.1 {INR} [facility] Laboratory - CoagulationOrde red By: Carlos Cavazos on 12-27-2022 PT Coag (PPP) [Time] 24.1 s 11.7-14.9 [facility] INR in Blood by Coagulation assayOrdered By: Carlos Cavazos on 12-21-2022 INR Coag (Bld) [Relative time] 2.4 {INR} [facility] Laboratory - CoagulationOrde red By: Carlos Cavazos on 12-21-2022 PT Coag (PPP) [Time] 26.7 s 11.7-14.9 [facility] Laboratory - CoagulationOrde red By: Carlos Cavazos on 12-14-2022 INR Coag (Bld) [Relative time] 2.3 {INR} [facility] Comment on above: Critical Value > 4.0 Whole blood prothrombin time Ordered By: Carlos Cavazos on 12-14-2022 PT Coag (Bld) [Time] 25.2 s 11.7-14.9 [facility] Laboratory - CoagulationOrde red By: Carlos Cavazos on 12-07-2022 INR Coag (Bld) [Relative time] 2.5 {INR} [facility] Comment on above: Critical Value > 4.0 Whole blood prothrombin time Ordered By: Carlos Cavazos on 12-07-2022 PT Coag (Bld) [Time] 26.9 s 11.7-14.9 [facility] Amorphous sediment detection in urine sediment by light microscopyOrdered By: Carlos Cavazos on 11-24-2022 Amorphous sediment LM Ql (Urine sed) 1+ [facility] Basophil percentageOrdered B y: Carlos Cavazos on 11-24-2022 Basophil percentage 0 SEEN /hpf 0-5 [facility] Bilirubin [Mass/Vol] 0.30 mg/dL 0.20-1.00 [facility] Comment on above: For patients on eltr ombopag therapy, use of Dimension [place] TBIL is not recommended. Chloride [Moles/Vol] 107 mmol/L 98-107 [facility] Glucose [Mass/Vol] 95 mg/dL 74-106 [facility] Potassium [Moles/Vol] 4.2 mmol/L 3.5-5.1 [facility] Protein [Mass/Vol] 6.9 g/dL 6.4-8.2 [facility] Sodium [Moles/Vol] 138 mmol/L 136-145 [facility] WBC (Bld) [#/Vol] 10.4 10*3/uL 4.4-11.0 [facility] Bilirubin Test strip Ql (U)O rdered By: Carlos Cavazos on 11-24-2022 Bilirubin Ql (U) Negative Negative [facility] Blood erythrocytes count (nu mber/volume)Ordered By: Carlos Cavazos on 11-24-2022 RBC (Bld) [#/Vol] 4.44 10*6/uL 4.6-6.2 [facility] Blood hemoglobin measurement (mass/volume)Ordered By: Carlos Cavazos on 11-24-2022 Hemoglobin (Bld) [Mass/Vol] 11.8 g/dL 13.0-16.5 [facility] Blood platelet mean volumeOr dered By: Carlos Cavazos on 11-24-2022 Platelet mean volume (Bld) [Entitic vol] 9.7 fL 6.2-12.0 [facility] Calcium oxalate crystals det ection in urine sediment by light microscopyOrdered By: Carlos Cavazos on 11-24-2022 Calcium oxalate crystals LM Ql (Urine sed) RARE /hpf [facility] Culture, urineOrdered By: Sharif Crouch on 11-24-2022 Bacteria identified Cx Nom (U) Positive [facility] Determination of erythrocyte mean corpuscular volume (MCV)Ordered By: Carlos Cavazos on 11-24-2022 MCV (RBC) [Entitic vol] 84.7 fL 80-94 [facility] Hematocrit Auto (Bld) [Volum e fraction]Ordered By: Carlos Cavazos on 11-24-2022 Hematocrit (Bld) [Volume fraction] 37.6 % 40-54 [facility] Ketones Test strip Ql (U)Ord ered By: Carlos Cavazos on 11-24-2022 Ketones Ql (U) Negative Negative [facility] Laboratory - Chemistry and C hemistry - challengeOrdered By: Carlos Cavazos on 11-24-2022 ALP [Catalytic activity/Vol] 103 U/L 45-117 [facility] ALT [Catalytic activity/Vol] 14 U/L 16-61 [facility] CO2 [Moles/Vol] 26.0 mmol/L 21.0-32.0 [facility] Globulin (S) [Mass/Vol] 4.0 g/dL 2.2-4.2 [facility] Urea nitrogen/Creatinine [Mass ratio] 24.1 mg/mg 10-20 [facility] Laboratory - Hematology and Cell countsOrdered By: Carlos Cavazos on 11-24-2022 Erythrocyte distribution width (RBC) [Entitic vol] 49.4 fL 35.1-43.9 [facility] Erythrocyte distribution width (RBC) [Ratio] 16.0 % 11.6-14.6 [facility] MCH (RBC) [Entitic mass] 26.6 pg 27.0-32.0 [facility] MCHC Auto (RBC) [Mass/Vol]Or dered By: Carlos Cavazos on 11-24-2022 MCHC (RBC) [Mass/Vol] 31.4 g/dL 32-36 [facility] Mucus LM Ql (Urine sed)Order ed By: Carlos Cavazos on 11-24-2022 Mucus Ql (Urine sed) 0 SEEN /hpf [facility] Nitrite Test strip Ql (U)Ord ered By: Carlos Cavazos on 11-24-2022 Nitrite Ql (U) Negative Negative [facility] No Panel InformationOrdered By: Carlos Cavazos on 11-24-2022 Estimated GFR (MDRD) Amer 118 mL/min >60 [facility] Comment on above: GFR Calc Estimated GFR (MDRD) Non-Af Amer 97 mL/min >60 [facility] Comment on above: Non- GFR Calc Platelets bldOrdered By: Pet noe Cavazos on 11-24-2022 Platelets (Bld) [#/Vol] 309 10*3/uL 150-450 [facility] Protein Test strip Ql (U)Ord ered By: Carlos Cavazos on 11-24-2022 Protein Ql (U) Negative Negative [facility] Serum or plasma albumin oral urement (mass/volume)Ordered By: Carlos Cavazos on 11-24-2022 Albumin [Mass/Vol] 2.9 g/dL 3.2-5.0 [facility] Serum or plasma albumin/glob ulin mass ratioOrdered By: Carlos Cavazos on 11-24-2022 Albumin/Globulin [Mass ratio] 0.7 {ratio} 0.9-2.4 [facility] Serum or plasma calcium oral urement (mass/volume)Ordered By: Carlos Cavazos on 11-24-2022 Calcium [Mass/Vol] 8.7 mg/dL 8.5-10.1 [facility] Serum or plasma creatinine m easurement (mass/volume)Ordered By: Carlos Cavazos on 11-24-2022 Creatinine [Mass/Vol] 0.83 mg/dL 0.70-1.30 [facility] Comment on above: The validity of the calculated GFR & GFRAA in patients over 70 years has not been determined. Clinical correlation is essential. Serum or plasma urea nitroge n measurement (mass/volume)Ordered By: Carlos Cavazos on 11-24-2022 Urea nitrogen [Mass/Vol] 20 mg/dL 7-18 [facility] Squamous epithelial cells de tection in urine sediment by light microscopyOrdered By: Carlos Cavazos on 11-24-2022 Epithelial cells.squamous LM Ql (Urine sed) 0 SEEN /hpf 0-5 [facility] Thin prep Papanicolaou smear with manual screeningOrdered By: Carlos Cavazos on 11-24-2022 Thin prep Papanicolaou smear with manual screening 10 U/L 15-37 [facility] Thin prep Papanicolaou smear with manual screening 5 5-15 [facility] [facility] U[facility] blood detectionOrdered By: Carlos Cavazos on 11-24-2022 RBC Ql (U) Negative Negative [facility] RBC Ql (U) 0 SEEN /hpf 0-5 [facility] Urine clarityOrdered By: Ted Cavazos on 11-24-2022 Clarity (U) Clear Clear [facility] Urine color determinationOrd ered By: Carlos Cavazos on 11-24-2022 Color (U) Yellow Yellow [facility] Urine glucose detectionOrder ed By: Carlos Cavazos on 11-24-2022 Glucose Ql (U) Normal mg/dl Normal [facility] Urine leukocyte esterase det ection by dipstickOrdered By: Carlos Cavazos on 11-24-2022 Leukocyte esterase Test strip Ql (U) Negative Negative [facility] Urine pHOrdered By: Carlos flores on 11-24-2022 pH (U) 7.0 [pH] 5.0 - 8.0 [facility] Urine sediment bacteria coun t by microscopy (number/high power field)Ordered By: Carlos Cavazos on 11-24-2022 Bacteria LM.HPF (Urine sed) [#/Area] 0 /[HPF] None Seen [facility] Urine specific gravity measu rementOrdered By: Carlos Cavazos on 11-24-2022 Specific gravity (U) [Rel density] 1.010 1.002-1.030 [facility] Urobilinogen Auto test strip Ql (U)Ordered By: Carlos Cavazos on 11-24-2022 Urobilinogen Ql (U) Normal mg/dl Normal [facility] - CoagulationOrde red By: Carlos Cavazos on 11-23-2022 INR Coag (Bld) [Relative time] 2.2 {INR} [facility] Comment on above: Critical Value > 4.0 Whole blood prothrombin time Ordered By: Carlos Cavazos on 11-23-2022 PT Coag (Bld) [Time] 24.5 s 11.7-14.9 [facility] Basophil percentageOrdered B y: Carlos Cavazos on 11-22-2022 Chloride [Moles/Vol] 105 mmol/L 98-107 [facility] Glucose [Mass/Vol] 91 mg/dL 74-106 [facility] Potassium [Moles/Vol] 4.1 mmol/L 3.5-5.1 [facility] Sodium [Moles/Vol] 138 mmol/L 136-145 [facility] WBC (Bld) [#/Vol] 12.0 10*3/uL 4.4-11.0 [facility] Blood erythrocytes count (nu mber/volume)Ordered By: Carlos Cavazos on 11-22-2022 RBC (Bld) [#/Vol] 4.65 10*6/uL 4.6-6.2 [facility] Blood hemoglobin measurement (mass/volume)Ordered By: Carlos Cavazos on 11-22-2022 Hemoglobin (Bld) [Mass/Vol] 12.4 g/dL 13.0-16.5 [facility] Blood platelet mean volumeOr dered By: Carlos Cavazos on 11-22-2022 Platelet mean volume (Bld) [Entitic vol] 10.3 fL 6.2-12.0 [facility] Determination of erythrocyte mean corpuscular volume (MCV)Ordered By: Carlos Cavazos on 11-22-2022 MCV (RBC) [Entitic vol] 86.0 fL 80-94 [facility] Hematocrit Auto (Bld) [Volum e fraction]Ordered By: Carlos Cavazos on 11-22-2022 Hematocrit (Bld) [Volume fraction] 40.0 % 40-54 [facility] - Chemistry and C hemistry - challengeOrdered By: Carlos Cavazos on 11-22-2022 CO2 [Moles/Vol] 25.0 mmol/L 21.0-32.0 [facility] Urea nitrogen/Creatinine [Mass ratio] 23.6 mg/mg 10-20 [facility] - Hematology and Cell countsOrdered By: Carlos Cavazos on 11-22-2022 Erythrocyte distribution width (RBC) [Entitic vol] 50.0 fL 35.1-43.9 [facility] Erythrocyte distribution width (RBC) [Ratio] 15.9 % 11.6-14.6 [facility] MCH (RBC) [Entitic mass] 26.7 pg 27.0-32.0 [facility] MCHC Auto (RBC) [Mass/Vol]Or dered By: Carlos Cavazos on 11-22-2022 MCHC (RBC) [Mass/Vol] 31.0 g/dL 32-36 [facility] No Panel InformationOrdered By: Carlos Cavazos on 11-22-2022 Estimated GFR (MDRD) Amer 115 mL/min >60 [facility] Comment on above: GFR Calc Estimated GFR (MDRD) Non-Af Amer 95 mL/min >60 [facility] Comment on above: Non- GFR Calc Platelets bldOrdered By: Ted Cavazos on 11-22-2022 Platelets (Bld) [#/Vol] 320 10*3/uL 150-450 [facility] Serum or plasma calcium oral urement (mass/volume)Ordered By: Carlos Cavazos on 11-22-2022 Calcium [Mass/Vol] 8.7 mg/dL 8.5-10.1 [facility] Serum or plasma creatinine m easurement (mass/volume)Ordered By: Carlos Cavazos on 11-22-2022 Creatinine [Mass/Vol] 0.85 mg/dL 0.70-1.30 [facility] Comment on above: The validity of the calculated GFR & GFRAA in patients over 70 years has not been determined. Clinical correlation is essential. Serum or plasma urea nitroge n measurement (mass/volume)Ordered By: Carlos Cavazos on 11-22-2022 Urea nitrogen [Mass/Vol] 20 mg/dL 7-18 [facility] Thin prep Papanicolaou smear with manual screeningOrdered By: Carlos Cavazos on 11-22-2022 Thin prep Papanicolaou smear with manual screening 8 5-15 [facility] - CoagulationOrde red By: Carlos Cavazos on 11-09-2022 INR Coag (Bld) [Relative time] 2.1 {INR} [facility] Comment on above: Critical Value > 4.0 Whole blood prothrombin time Ordered By: Carlos Cavazos on 11-09-2022 PT Coag (Bld) [Time] 22.6 s 11.7-14.9 [facility] - CoagulationOrde red By: Carlos Cavazos on 10-26-2022 INR Coag (Bld) [Relative time] 2.6 {INR} [facility] Comment on above: Critical Value > 4.0 Whole blood prothrombin time Ordered By: Carlos Cavazos on 10-26-2022 PT Coag (Bld) [Time] 28.5 s 11.7-14.9 [facility] Laboratory - CoagulationOrde red By: Carlos Cavazos on 10-12-2022 INR Coag (Bld) [Relative time] 2.4 {INR} [facility] Comment on above: Critical Value > 4.0 Whole blood prothrombin time Ordered By: Carlos Cavazos on 10-12-2022 PT Coag (Bld) [Time] 26.4 s 11.7-14.9 [facility] - CoagulationOrde red By: Carlos Cavazos on 10-05-2022 INR Coag (Bld) [Relative time] 2.6 {INR} [facility] Comment on above: Critical Value > 4.0 Whole blood prothrombin time Ordered By: Carlos Cavazos on 10-05-2022 PT Coag (Bld) [Time] 28.0 s 11.7-14.9 [facility] - CoagulationOrde red By: Carlos Cavazos on 09-28-2022 INR Coag (Bld) [Relative time] 2.7 {INR} [facility] Comment on above: Critical Value > 4.0 Whole blood prothrombin time Ordered By: Carlos Cavazos on 09-28-2022 PT Coag (Bld) [Time] 28.9 s 11.7-14.9 [facility] - CoagulationOrde red By: Carlos Cavazos on 05-11-2023 INR Coag (Bld) [Relative time] 2.5 {INR} [facility] Comment on above: Critical Value > 4.0 Whole blood prothrombin time Ordered By: Carlos Cavazos on 09-14-2022 PT Coag (Bld) [Time] 27.4 s 11.7-14.9 [facility] - CoagulationOrde red By: Carlos Cavazos on 08-31-2022 INR Coag (Bld) [Relative time] 2.3 {INR} [facility] Comment on above: Critical Value > 4.0 Whole blood prothrombin time Ordered By: Carlos Cavazos on 08-31-2022 PT Coag (Bld) [Time] 25.4 s 11.7-14.9 [facility] Basophil percentageOrdered B y: Carlos Cavazos on 08-23-2022 Chloride [Moles/Vol] 108 mmol/L 98-107 [facility] Glucose [Mass/Vol] 86 mg/dL 74-106 [facility] Potassium [Moles/Vol] 4.3 mmol/L 3.5-5.1 [facility] Sodium [Moles/Vol] 136 mmol/L 136-145 [facility] WBC (Bld) [#/Vol] 10.0 10*3/uL 4.4-11.0 [facility] Blood erythrocytes count (nu mber/volume)Ordered By: Carlos Cavazos on 08-23-2022 RBC (Bld) [#/Vol] 4.77 10*6/uL 4.6-6.2 [facility] Blood hemoglobin measurement (mass/volume)Ordered By: Carlos Cavazos on 08-23-2022 Hemoglobin (Bld) [Mass/Vol] 12.5 g/dL 13.0-16.5 [facility] Blood platelet mean volumeOr dered By: Carlos Cavazos on 08-23-2022 Platelet mean volume (Bld) [Entitic vol] 11.0 fL 6.2-12.0 [facility] Determination of erythrocyte mean corpuscular volume (MCV)Ordered By: Carlos Cavazos on 08-23-2022 MCV (RBC) [Entitic vol] 84.3 fL 80-94 [facility] Hematocrit Auto (Bld) [Volum e fraction]Ordered By: Carlos Cavazos on 08-23-2022 Hematocrit (Bld) [Volume fraction] 40.2 % 40-54 [facility] - Chemistry and C hemistry - challengeOrdered By: Carlos Cavazos on 08-23-2022 CO2 [Moles/Vol] 24.0 mmol/L 21.0-32.0 [facility] Urea nitrogen/Creatinine [Mass ratio] 22.8 mg/mg 10-20 [facility] - Hematology and Cell countsOrdered By: Carlos Cavazos on 08-23-2022 Erythrocyte distribution width (RBC) [Entitic vol] 49.3 fL 35.1-43.9 [facility] Erythrocyte distribution width (RBC) [Ratio] 16.0 % 11.6-14.6 [facility] MCH (RBC) [Entitic mass] 26.2 pg 27.0-32.0 [facility] MCHC Auto (RBC) [Mass/Vol]Or dered By: Carlos Cavazos on 08-23-2022 MCHC (RBC) [Mass/Vol] 31.1 g/dL 32-36 [facility] No Panel InformationOrdered By: Carlos Cavazos on 08-23-2022 Estimated GFR (MDRD) Amer 134 mL/min >60 [facility] Comment on above: GFR Calc Estimated GFR (MDRD) Non-Af Amer 110 mL/min >60 [facility] Comment on above: Non- GFR Calc Platelets bldOrdered By: Ted Cavazos on 08-23-2022 Platelets (Bld) [#/Vol] 268 10*3/uL 150-450 [facility] Serum or plasma calcium oral urement (mass/volume)Ordered By: Carlos Cavazos on 08-23-2022 Calcium [Mass/Vol] 9.1 mg/dL 8.5-10.1 [facility] Serum or plasma creatinine m easurement (mass/volume)Ordered By: Carlos Cavazos on 08-23-2022 Creatinine [Mass/Vol] 0.74 mg/dL 0.70-1.30 [facility] Comment on above: The validity of the calculated GFR & GFRAA in patients over 70 years has not been determined. Clinical correlation is essential. Serum or plasma urea nitroge n measurement (mass/volume)Ordered By: Carlos Cavazos on 08-23-2022 Urea nitrogen [Mass/Vol] 17 mg/dL 7-18 [facility] Thin prep Papanicolaou smear with manual screeningOrdered By: Carlos Cavazos on 08-23-2022 Thin prep Papanicolaou smear with manual screening 4 5-15 [facility] - CoagulationOrde red By: Carlos Cavazos on 08-17-2022 INR Coag (Bld) [Relative time] 2.8 {INR} [facility] Comment on above: Critical Value > 4.0 Whole blood prothrombin time Ordered By: Carlos Cavazos on 08-17-2022 PT Coag (Bld) [Time] 29.6 s 11.7-14.9 [facility] - CoagulationOrde red By: Carlos Cavazos on 08-14-2022 INR Coag (Bld) [Relative time] 3.9 {INR} [facility] Comment on above: Critical Value > 4.0 Whole blood prothrombin time Ordered By: Carlos Cavazos on 08-14-2022 PT Coag (Bld) [Time] 40.6 s 11.7-14.9 [facility] - CoagulationOrde red By: Carlos Cavazos on 07-31-2022 INR Coag (Bld) [Relative time] 2.5 {INR} [facility] Comment on above: Critical Value > 4.0 Whole blood prothrombin time Ordered By: Carlos Cavazos on 07-31-2022 PT Coag (Bld) [Time] 26.8 s 11.7-14.9 [facility] INR in Blood by Coagulation assayOrdered By: Carlos Cavazos on 07-24-2022 INR Coag (Bld) [Relative time] 2.3 {INR} [facility] - CoagulationOrde red By: Carlos Cavazos on 07-24-2022 PT Coag (PPP) [Time] 24.7 s 11.7-14.9 [facility] - CoagulationOrde red By: Carlos Cavazos on 07-20-2022 INR Coag (Bld) [Relative time] 1.9 {INR} [facility] Comment on above: Critical Value > 4.0 Whole blood prothrombin time Ordered By: Carlos Cavazos on 07-20-2022 PT Coag (Bld) [Time] 20.6 s 11.7-14.9 [facility] - CoagulationOrde red By: Carlos Cavazos on 07-17-2022 INR Coag (Bld) [Relative time] 1.3 {INR} [facility] Comment on above: Critical Value > 4.0 Whole blood prothrombin time Ordered By: Carlos Cavazos on 07-17-2022 PT Coag (Bld) [Time] 15.9 s 11.7-14.9 [facility] Basophil percentageOrdered B y: Carlos Cavazos on 07-11-2022 Chloride [Moles/Vol] 105 mmol/L 98-107 [facility] Glucose [Mass/Vol] 97 mg/dL 74-106 [facility] Potassium [Moles/Vol] 3.9 mmol/L 3.5-5.1 [facility] Sodium [Moles/Vol] 140 mmol/L 136-145 [facility] WBC (Bld) [#/Vol] 9.4 10*3/uL 4.4-11.0 [facility] Blood erythrocytes count (nu mber/volume)Ordered By: Carlos Cavazos on 07-11-2022 RBC (Bld) [#/Vol] 4.66 10*6/uL 4.6-6.2 [facility] Blood hemoglobin measurement (mass/volume)Ordered By: Carlos Cavazos on 07-11-2022 Hemoglobin (Bld) [Mass/Vol] 12.0 g/dL 13.0-16.5 [facility] Blood platelet mean volumeOr dered By: Carlos Cavazos on 07-11-2022 Platelet mean volume (Bld) [Entitic vol] 10.4 fL 6.2-12.0 [facility] Determination of erythrocyte mean corpuscular volume (MCV)Ordered By: Carlos Cavazos on 07-11-2022 MCV (RBC) [Entitic vol] 83.7 fL 80-94 [facility] Hematocrit Auto (Bld) [Volum e fraction]Ordered By: Carlos Cavazos on 07-11-2022 Hematocrit (Bld) [Volume fraction] 39.0 % 40-54 [facility] - Chemistry and C hemistry - challengeOrdered By: Carlos Cavazos on 07-11-2022 CO2 [Moles/Vol] 28.0 mmol/L 21.0-32.0 [facility] Urea nitrogen/Creatinine [Mass ratio] 23.0 mg/mg 10-20 [facility] - Hematology and Cell countsOrdered By: Carlos Cavazos on 07-11-2022 Erythrocyte distribution width (RBC) [Entitic vol] 51.0 fL 35.1-43.9 [facility] Erythrocyte distribution width (RBC) [Ratio] 16.8 % 11.6-14.6 [facility] MCH (RBC) [Entitic mass] 25.8 pg 27.0-32.0 [facility] MCHC Auto (RBC) [Mass/Vol]Or dered By: Carlos Cavazos on 07-11-2022 MCHC (RBC) [Mass/Vol] 30.8 g/dL 32-36 [facility] No Panel InformationOrdered By: Carlos Cavazos on 07-11-2022 Estimated GFR (MDRD) Amer 126 mL/min >60 [facility] Comment on above: GFR Calc Estimated GFR (MDRD) Non-Af Amer 104 mL/min >60 [facility] Comment on above: Non- GFR Calc Platelets bldOrdered By: Ted Cavazos on 07-11-2022 Platelets (Bld) [#/Vol] 291 10*3/uL 150-450 [facility] Serum or plasma calcium oral urement (mass/volume)Ordered By: Carlos Cavazos on 07-11-2022 Calcium [Mass/Vol] 9.2 mg/dL 8.5-10.1 [facility] Serum or plasma creatinine m easurement (mass/volume)Ordered By: Carlos Cavazos on 07-11-2022 Creatinine [Mass/Vol] 0.78 mg/dL 0.70-1.30 [facility] Comment on above: The validity of the calculated GFR & GFRAA in patients over 70 years has not been determined. Clinical correlation is essential. Serum or plasma urea nitroge n measurement (mass/volume)Ordered By: Carlos Cavazos on 07-11-2022 Urea nitrogen [Mass/Vol] 18 mg/dL 7-18 [facility] Thin prep Papanicolaou smear with manual screeningOrdered By: Carlos Cavazos on 07-11-2022 Thin prep Papanicolaou smear with manual screening 7 5-15 [facility] - CoagulationOrde red By: Carlos Cavazos on 07-10-2022 INR Coag (Bld) [Relative time] 1.8 {INR} [facility] Comment on above: Critical Value > 4.0 Whole blood prothrombin time Ordered By: Carlos Cavazos on 07-10-2022 PT Coag (Bld) [Time] 21.0 s 11.7-14.9 [facility] - CoagulationOrde red By: Carlos Cavazos on 07-03-2022 INR Coag (Bld) [Relative time] 1.9 {INR} [facility] Comment on above: Critical Value > 4.0 Whole blood prothrombin time Ordered By: Carlos Cavazos on 07-03-2022 PT Coag (Bld) [Time] 22.7 s 11.7-14.9 [facility] INR in Blood by Coagulation assayOrdered By: Carlos Cavazos on 06-27-2022 INR Coag (Bld) [Relative time] 2.9 {INR} [facility] - CoagulationOrde red By: Carlos Cavazos on 06-27-2022 PT Coag (PPP) [Time] 29.9 s 11.7-14.9 [facility] - CoagulationOrde red By: Carlos Cavazos on 06-13-2022 INR Coag (Bld) [Relative time] 2.1 {INR} [facility] Comment on above: Critical Value > 4.0 Whole blood prothrombin time Ordered By: Carlos Cavazos on 06-13-2022 PT Coag (Bld) [Time] 24.4 s 11.7-14.9 [facility] - CoagulationOrde red By: Carlos Cavazos on 06-06-2022 INR Coag (Bld) [Relative time] 1.5 {INR} [facility] Comment on above: Critical Value > 4.0 Whole blood prothrombin time Ordered By: Carlos Cavazos on 06-06-2022 PT Coag (Bld) [Time] 18.4 s 11.7-14.9 [facility] Basophil percentageOrdered B y: Carlos Cavazos on 05-30-2022 Chloride [Moles/Vol] 105 mmol/L 98-107 [facility] Glucose [Mass/Vol] 95 mg/dL 74-106 [facility] Potassium [Moles/Vol] 3.9 mmol/L 3.5-5.1 [facility] Sodium [Moles/Vol] 140 mmol/L 136-145 [facility] WBC (Bld) [#/Vol] 7.6 10*3/uL 4.4-11.0 [facility] Blood erythrocytes count (nu mber/volume)Ordered By: Carlos Cavazos on 05-30-2022 RBC (Bld) [#/Vol] 4.79 10*6/uL 4.6-6.2 [facility] Blood hemoglobin measurement (mass/volume)Ordered By: Carlos Cavazos on 05-30-2022 Hemoglobin (Bld) [Mass/Vol] 12.1 g/dL 13.0-16.5 [facility] Blood platelet mean volumeOr dered By: Carlos Cavazos on 05-30-2022 Platelet mean volume (Bld) [Entitic vol] 10.4 fL 6.2-12.0 [facility] Determination of erythrocyte mean corpuscular volume (MCV)Ordered By: Carlos Cavazos on 05-30-2022 MCV (RBC) [Entitic vol] 82.5 fL 80-94 [facility] Hematocrit Auto (Bld) [Volum e fraction]Ordered By: Carlos Cavazos on 05-30-2022 Hematocrit (Bld) [Volume fraction] 39.5 % 40-54 [facility] INR in Blood by Coagulation assayOrdered By: Carlos Cavazos on 05-30-2022 INR Coag (Bld) [Relative time] 1.9 {INR} [facility] - Chemistry and C hemistry - challengeOrdered By: Carlos Cavazos on 05-30-2022 CO2 [Moles/Vol] 27.0 mmol/L 21.0-32.0 [facility] Urea nitrogen/Creatinine [Mass ratio] 21.4 mg/mg 10-20 [facility] - CoagulationOrde red By: Carlos Cavazos on 05-30-2022 PT Coag (PPP) [Time] 21.6 s 11.7-14.9 [facility] Laboratory - Hematology and Cell countsOrdered By: Carlos Cavazos on 05-30-2022 Erythrocyte distribution width (RBC) [Entitic vol] 48.8 fL 35.1-43.9 [facility] Erythrocyte distribution width (RBC) [Ratio] 16.2 % 11.6-14.6 [facility] MCH (RBC) [Entitic mass] 25.3 pg 27.0-32.0 [facility] MCHC Auto (RBC) [Mass/Vol]Or dered By: Carlos Cavazos on 05-30-2022 MCHC (RBC) [Mass/Vol] 30.6 g/dL 32-36 [facility] No Panel InformationOrdered By: Carlos Cavazos on 05-30-2022 Estimated GFR (MDRD) Amer 133 mL/min >60 [facility] Comment on above: GFR Calc Estimated GFR (MDRD) Non-Af Amer 110 mL/min >60 [facility] Comment on above: Non- GFR Calc Platelets bldOrdered By: Ted Cavazos on 05-30-2022 Platelets (Bld) [#/Vol] 308 10*3/uL 150-450 [facility] Serum or plasma calcium oral urement (mass/volume)Ordered By: Carlos Cavazos on 05-30-2022 Calcium [Mass/Vol] 9.1 mg/dL 8.5-10.1 [facility] Serum or plasma creatinine m easurement (mass/volume)Ordered By: Carlos Cavazos on 05-30-2022 Creatinine [Mass/Vol] 0.75 mg/dL 0.70-1.30 [facility] Comment on above: The validity of the calculated GFR & GFRAA in patients over 70 years has not been determined. Clinical correlation is essential. Serum or plasma urea nitroge n measurement (mass/volume)Ordered By: Carlos Cavazos on 05-30-2022 Urea nitrogen [Mass/Vol] 16 mg/dL 7-18 [facility] Thin prep Papanicolaou smear with manual screeningOrdered By: Carlos Cavazos on 05-30-2022 Thin prep Papanicolaou smear with manual screening 8 5-15 [facility] - CoagulationOrde red By: Carlos Cavazos on 05-16-2022 INR Coag (Bld) [Relative time] 2.6 {INR} [facility] Comment on above: Critical Value > 4.0 Whole blood prothrombin time Ordered By: Carlos Cavazos on 05-16-2022 PT Coag (Bld) [Time] 29.9 s 11.7-14.9 [facility] - CoagulationOrde red By: Carlos Cavazos on 05-02-2022 INR Coag (Bld) [Relative time] 2.0 {INR} [facility] Comment on above: Critical Value > 4.0 Whole blood prothrombin time Ordered By: Carlos Cavazos on 05-02-2022 PT Coag (Bld) [Time] 23.2 s 11.7-14.9 [facility] - CoagulationOrde red By: Carlos Cavazos on 04-27-2022 INR Coag (Bld) [Relative time] 2.7 {INR} [facility] Comment on above: Critical Value > 4.0 Whole blood prothrombin time Ordered By: Carlos Cavazos on 04-27-2022 PT Coag (Bld) [Time] 31.1 s 11.7-14.9 [facility] - CoagulationOrde red By: Carlos Cavazos on 04-26-2022 INR Coag (Bld) [Relative time] 2.8 {INR} [facility] Comment on above: Critical Value > 4.0 Whole blood prothrombin time Ordered By: Carlos Cavazos on 04-26-2022 PT Coag (Bld) [Time] 32.6 s 11.7-14.9 [facility] - CoagulationOrde red By: Carlos Cavazos on 04-11-2022 INR Coag (Bld) [Relative time] 2.9 {INR} [facility] Comment on above: Critical Value > 4.0 Whole blood prothrombin time Ordered By: Carlos Cavazos on 04-11-2022 PT Coag (Bld) [Time] 32.8 s 11.7-14.9 [facility] - CoagulationOrde red By: Carlos Cavazos on 03-28-2022 INR Coag (Bld) [Relative time] 2.1 {INR} [facility] Comment on above: Critical Value > 4.0 Whole blood prothrombin time Ordered By: Carlos Cavazos on 03-28-2022 PT Coag (Bld) [Time] 24.8 s 11.7-14.9 [facility] - CoagulationOrde red By: Carlos Cavazos on 03-23-2022 INR Coag (Bld) [Relative time] 1.7 {INR} [facility] Comment on above: Critical Value > 4.0 Whole blood prothrombin time Ordered By: Carlos Cavazos on 03-23-2022 PT Coag (Bld) [Time] 20.9 s 11.7-14.9 [facility] - CoagulationOrde red By: Carlos Cavazos on 03-16-2022 INR Coag (Bld) [Relative time] 1.7 {INR} [facility] Comment on above: Critical Value > 4.0 Whole blood prothrombin time Ordered By: Carlos Cavazos on 03-16-2022 PT Coag (Bld) [Time] 19.9 s 11.7-14.9 [facility] - CoagulationOrde red By: Carlos Cavazos on 03-09-2022 INR Coag (Bld) [Relative time] 1.8 {INR} [facility] Comment on above: Critical Value > 4.0 Whole blood prothrombin time Ordered By: Carlos Cavazos on 03-09-2022 PT Coag (Bld) [Time] 21.9 s 11.7-14.9 [facility] - CoagulationOrde red By: Carlos Cavazos on 03-06-2022 INR Coag (Bld) [Relative time] 1.7 {INR} [facility] Comment on above: Critical Value > 4.0 Whole blood prothrombin time Ordered By: Carlos Cavazos on 03-06-2022 PT Coag (Bld) [Time] 20.0 s 11.7-14.9 [facility] CBC with Auto Differentialon 03-02-2022 Absolute Baso # 0.2 10*3/uL 0.0 - 0.2 10*3/uL [facility] Absolute Neut # 10.7 10*3/uL High 1.8 - 7.0 10*3/uL [facility] Basophils/100 WBC (Bld) 1.1 % 0.0 - 2.0 % [facility] Eosinophils (Bld) [#/Vol] 0.1 10*3/uL 0.0 - 0.5 10*3/uL [facility] Eosinophils/100 WBC (Bld) 0.5 % Low 1.0 - 6.0 % [facility] Granulocytes/100 WBC (Bld) 73.9 % 40.0 - 80.0 % [facility] Hematocrit (Bld) [Volume fraction] 37.4 % Low 40.0 - 52.0 % [facility] Hemoglobin (Bld) [Mass/Vol] 12.1 g/dL Low 13.0 - 18.0 g/dL [facility] Interpretation and review of laboratory results Abnormal [facility] Lymphocytes (Bld) [#/Vol] 3.0 10*3/uL 1.0 - 4.3 10*3/uL [facility] Lymphocytes/100 WBC (Bld) 20.6 % 20.0 - 40.0 % [facility] MCH (RBC) [Entitic mass] 26.2 pg 26.0 - 34.0 pg [facility] MCHC (RBC) [Mass/Vol] 32.3 % 32.0 - 36.0 % [facility] MCV (RBC) [Entitic vol] 81.1 fL 80.0 - 98.0 fL [facility] Monocytes (Bld) [#/Vol] 0.6 10*3/uL 0.0 - 0.8 10*3/uL [facility] Monocytes/100 WBC (Bld) 3.9 % 2.0 - 10.0 % [facility] Platelet distribution width (Bld) [Ratio] 17.0 % High 11.5 - 14.5 % [facility] Platelet mean volume (Bld) [Entitic vol] 8.5 fL 7.4 - 12.4 fL [facility] Comment on above: MPV is a calculated measurement using platelet volume ratio. Platelets (Bld) [#/Vol] 411 10*3/uL 140 - 440 10*3/uL [facility] RBC (Bld) [#/Vol] 4.61 10*6/uL 4.40 - 5.9 0 10*6/uL [facility] WBC (Bld) [#/Vol] 14.5 10*3/uL High 3.6 - 10.7 10*3/uL [facility] Test Performed by [facility], [address] [place] [address] [address] [facility] CT HEAD WO CONTRASTon 2021 Patient Name: ANDREW SIFUENTES Computed Tomography ACCESSION EXAM DATE/TIME PROCEDURE ORDERING PROVIDER [id number] 03/02/2022 13:[address] Head or Brain w/o [id number] -LANETTE MUNGUIA Contrast CPT code 65585 Reason For Exam (CT Head or Brain w/o Contrast) fall, + coumadin, patient reports no head injury, + dementia Report Reasons for examination: Fall on anticoagulation Axial unenhanced scans of the brain were obtained. Comparison study 10/31/2021 The patient has baseline moderate parenchymal volume loss and remote appearing small vessel ischemic / neurodegenerative changes in the periventricular and subcortical white matter of the cerebral hemispheres. There are dilated perivascular spaces. There is no mass lesion or brain edema. There is no hemorrhage. There is no definite evidence of acute infarction. There is no shift or herniation. The brainstem and cerebellum are unremarkable. Bone window images demonstrate no significant acute abnormalities. The paranasal sinuses and mastoids are unremarkable. IMPRESSION: 1. 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 Bilateral ventriculostomy tubes (parent active on the left for [employer] shunting and disconnected on the right). 2. No definite evidence of acute infarction (MRI more sensitive), mass lesion, nor hemorrhage. Report Dictated on --- Final --- Dictated: 03/02/2022 1:35 pm Dictating Physician: MD GUTIERREZ WILLIAM Signed Date and Time: 03/02/2022 1:39 pm Signed by: MD GUTIERREZ WILLIAM Transcribed Date and Time: 03/02/2022 1:35 [facility] Anant Gutierrez MD - 03/02/2022 Patient Name: ANDREW SIFUENTES Computed Tomography ACCESSION EXAM DATE/TIME PROCEDURE ORDERING PROVIDER [id number] 03/02/2022 13:[address] Head or Brain w/o [id number] -LANETTE MUNGUIA Contrast CPT code 85350 Reason For Exam (CT Head or Brain w/o Contrast) fall, + coumadin, patient reports no head injury, + dementia Report Reasons for examination: Fall on anticoagulation Axial unenhanced scans of the brain were obtained. Comparison study 10/31/2021 The patient has baseline moderate parenchymal volume loss and remote appearing small vessel ischemic / neurodegenerative changes in the periventricular and subcortical white matter of the cerebral hemispheres. There are dilated perivascular spaces. There is no mass lesion or brain edema. There is no hemorrhage. There is no definite evidence of acute infarction. There is no shift or herniation. The brainstem and cerebellum are unremarkable. Bone window images demonstrate no significant acute abnormalities. The paranasal sinuses and mastoids are unremarkable. IMPRESSION: 1. 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 Bilateral ventriculostomy tubes (parent active on the left for [employer] shunting and disconnected on the right). 2. No definite evidence of acute infarction (MRI more sensitive), mass lesion, nor hemorrhage. Report Dictated on --- Final --- Dictated: 03/02/2022 1:35 pm Dictating Physician: MD GUTIERREZ WILLIAM Signed Date and Time: 03/02/2022 1:39 pm Signed by: MD GUTIERREZ WILLIAM Transcribed Date and Time: 03/02/2022 1:35 [facility] Work Phone: Radiology Study observation (narrative) [facility] Work Phone: CT HEAD WO CONTRASTOrdered B y: Anant Gutierrez on 03-02-2022 [facility] Work Phone: CT Head or Brain w/o Contras ton 03-02-2022 CT Head or Brain w/o Contrast Patient Name: ANDREW SIFUENTES Computed Tomography ACCESSION EXAM DATE/TIME PROCEDURE ORDERING PROVIDER [id number] 03/02/2022 13:[address] Head or Brain w/o [id number] -LANETTE MUNGUIA Contrast CPT code 72859 Reason For Exam (CT Head or Brain w/o Contrast) fall, + coumadin, patient reports no head injury, + dementia Report Reasons for examination: Fall on anticoagulation Axial unenhanced scans of the brain were obtained. Comparison study 10/31/2021 The patient has baseline moderate parenchymal volume loss and remote appearing small vessel ischemic / neurodegenerative changes in the periventricular and subcortical white matter of the cerebral hemispheres. There are dilated perivascular spaces. There is no mass lesion or brain edema. There is no hemorrhage. There is no definite evidence of acute infarction. There is no shift or herniation. The brainstem and cerebellum are unremarkable. Bone window images demonstrate no significant acute abnormalities. The paranasal sinuses and mastoids are unremarkable. IMPRESSION: 1. 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 Bilateral ventriculostomy tubes (parent active on the left for [employer] shunting and disconnected on the right). 2. No definite evidence of acute infarction (MRI more sensitive), mass lesion, nor hemorrhage. Report Dictated on Final Dictated: 03/02/2022 1:35 pm Dictating Physician: MD GUTIERREZ WILLIAM Signed Date and Time: 03/02/2022 1:39 pm Signed by: MD GUTIERREZ WILLIAM Transcribed Date and Time: 03/02/2022 1:35 Normal [facility] Comp Metabolic Panelon 03-02 Calcium [Mass/Vol] 9.1 mg/dL Normal 8.4-10.4 [facility] Comment on above: Performed By: #### H EMDF, PT, CMP3 ####[facility] [place] [address] ALP [Catalytic activity/Vol] 128 U/L High 38-126 [facility] Comment on above: Performed By: #### H EMDF, PT, CMP3 ####[facility] [place] [address] ALT [Catalytic activity/Vol] 12 U/L Normal 0-49 [facility] Comment on above: Result Comment: The ALT test is performed by an updated assay method. Please note that the reference intervals have been changed and are now sex specific. Performed By: #### H CHRISTEL MOTT CMP3 ####[address] [place] [address] Anion gap [Moles/Vol] 7 mmol/L Normal 3-13 [facility] Comment on above: Performed By: #### H CHRISTEL MOTT CMP3 ####[address] [address] [place] [address] AST [Catalytic activity/Vol] 24 U/L Normal 15-46 [facility] Comment on above: Performed By: #### H CHRISTEL MOTT CMP3 ####[address] [address] Bilirubin [Mass/Vol] 0.4 mg/dL Normal 0.2-1.3 [facility] Comment on above: Performed By: #### H CHRISTEL MOTT CMP3 ####[address] [address] [place] [address] CO2 [Moles/Vol] 27 mmol/L Normal 22-30 [facility] Comment on above: Performed By: #### H CHRISTEL MOTT CMP3 ####[address] [address] Glucose [Mass/Vol] 109 mg/dL High 70-100 [facility] Comment on above: Performed By: #### H CHRISTEL MOTT CMP3 ####[address] [place] [address] Protein [Mass/Vol] 8.1 g/dL Normal 6.3-8.2 [facility] Comment on above: Performed By: #### H CHRISTEL MOTT CMP3 ####[address] [address] Urea nitrogen [Mass/Vol] 22 mg/dL High 7-17 [facility] Comment on above: Performed By: #### H CHRISTEL MOTT CMP3 ####[address] [place] Creatinine [Mass/Vol] 0.63 mg/dL Normal 0.52-1.25 [facility] Comment on above: Performed By: #### H CHRISTEL MOTT CMP3 ####[address] [place], [place] eGFR OTHER > 90.0 Normal >60 [facility] Comment on above: Result Comment: KDIG O guidelines provide the following GFR categories: Stage GFR(ml/min/1.73 m2) Terms G1 >=90 Normal or high G2 60-89 Mildly decreased* G3a 45-59 Mildly to moderately decreased G3b 30-44 Moderately to severely decreased G4 15-29 Severely decreased G5 <15 Kidney failure *Relative to young adult level. In the absence of evidence of kidney damage, neither GFR category G1 nor G2 fulfill the criteria for CKD. The CKD-EPI equation is validated in individuals 18 years of age and older. Currently the best equation for estimating glomerular filtration rate (GFR) from serum creatinine in children is the Bedside Medina equation. It is less accurate in patients with extremes of muscle mass, restriction of dietary protein, ingestion of creatine, extra-renal metabolism of creatinine, or treatment with medications that affect renal tubular creatinine secretion. Performed By: #### H CHRISTEL MOTT CMP3 ####[address] GFR/1.73 sq M.predicted among blacks MDRD (S/P/Bld) [Vol rate/Area] mL/min/{1.73_m2} Normal >60 [facility] Comment on above: Performed By: #### H CHRISTEL MOTT CMP3 ####[address] Albumin [Mass/Vol] 4.1 g/dL Normal 3.5-5.0 [facility] Comment on above: Performed By: #### H CHRISTEL MOTT CMP3 ####[address] [place], [place] Chloride [Moles/Vol] 106 mmol/L Normal 98-107 [facility] Comment on above: Performed By: #### H CHRISTEL MOTT CMP3 ####[facility] [place] [address] Potassium [Moles/Vol] 3.7 mmol/L Normal 3.5-5.1 [facility] Comment on above: Performed By: #### H EMDF, PT, CMP3 ####[facility] [place] [address] Sodium [Moles/Vol] 140 mmol/L Normal 135-145 [facility] Comment on above: Performed By: #### H EMDF, PT, CMP3 ####[facility] [place] [address] Comprehensive Metabolic Pane kiel 03-02-2022 Albumin [Mass/Vol] 4.1 g/dL 3.5 - 5.0 g/dL [facility] ALP (Bld) [Catalytic activity/Vol] 128 U/L High 38 - 126 U/L [facility] ALT [Catalytic activity/Vol] 12 U/L 0 - 49 U/L [facility] Comment on above: The ALT test is perf ormed by an updated assay method. Please note that the reference intervals have been changed and are now sex specific. Anion gap [Moles/Vol] 7 mmol/L 3 - 13 mmol/L [facility] AST [Catalytic activity/Vol] 24 U/L 15 - 46 U/L [facility] Bilirubin [Mass/Vol] 0.4 mg/dL 0.2 - 1 .3 mg/dL [facility] Calcium [Mass/Vol] 9.1 mg/dL 8.4 - 10. 4 mg/dL [facility] Chloride [Moles/Vol] 106 mmol/L 98 - 10 7 mmol/L [facility] CO2 [Moles/Vol] 27 mmol/L 22 - 30 mmol/L [facility] Creatinine [Mass/Vol] 0.63 mg/dL 0.52 - 1.25 mg/dL [facility] eGFR mL/min 60 - P INF mL/min [facility] EGFR IF NonAfrican Tunisian mL/min 60 - PINF mL/min [facility] Comment on above: KDIGO guidelines pro vide the following GFR categories: Stage GFR(ml/min/1.73 m2) Terms G1 >=90 Normal or high G2 60-89 Mildly decreased* G3a 45-59 Mildly to moderately decreased G3b 30-44 Moderately to severely decreased G4 15-29 Severely decreased G5 <15 Kidney failure *Relative to young adult level. In the absence of evidence of kidney damage, neither GFR category G1 nor G2 fulfill the criteria for CKD. The CKD-EPI equation is validated in individuals 18 years of age and older. Currently the best equation for estimating glomerular filtration rate (GFR) from serum creatinine in children is the Bedside Medina equation. It is less accurate in patients with extremes of muscle mass, restriction of dietary protein, ingestion of creatine, extra-renal metabolism of creatinine, or treatment with medications that affect renal tubular creatinine secretion. Glucose [Mass/Vol] 109 mg/dL High 70 - 100 mg/dL [facility] Interpretation and review of laboratory results Abnormal [facility] Potassium [Moles/Vol] 3.7 mmol/L 3.5 - 5.1 mmol/L [facility] Protein [Mass/Vol] 8.1 g/dL 6.3 - 8.2 g/dL [facility] Sodium [Moles/Vol] 140 mmol/L 135 - 145 mmol/L [facility] Urea nitrogen (BldV) [Mass/Vol] 22 mg/dL High 7 - 17 mg/dL [facility] Test Performed by [id number] [place] [address] [facility] ED Provider Noteon ED Provider Note [facility] EMERGENCY DEPT EMERGENCY DEPARTMENT ENCOUNTER Pt Name: Andrew Sifuentes Birthdate 1950 Date of evaluation: 03/02/2022 Provider: Lanette Munguia DO CHIEF COMPLAINT Chief Complaint Patient presents with Fall Patient had unwitnessed fall at [facility] landed on butt. Is on thinners, denies LOC, denies head injury has no complaints at this time HISTORY OF PRESENT ILLNESS (Location/Symptom, Timing/Onset, Context/Setting, Quality, Duration, Modifying Factors, Severity) Note limiting factors. I wore a N-95 mask for the entirety of this encounter. Andrew Sifuentes is a 71 y.o. 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 Patient rolled out of bed. Unwitnessed. Found down on ground by nursing staff. Nonambulatory at baseline. Patient reports he did not hit his head. Has no acute complaints. Denies any pain or traumatic injury. Per nursing protocol at detention, sent to emergency department due to unwitnessed fall on Coumadin. 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 REVIEW OF SYSTEMS (2+ for level 4; 10+ for level 5) Review of Systems Constitutional: Negative for chills and fever. HENT: Negative for congestion. Eyes: Negative for pain. Respiratory: Negative for shortness of breath. Cardiovascular: Negative for chest pain. Gastrointestinal: Negative for abdominal pain. Genitourinary: Negative for dysuria. Musculoskeletal: Negative for back pain. Skin: Negative for rash. Allergic/Immunologic: Negative for immunocompromised state. Neurological: Negative for headaches. Psychiatric/Behavioral: Negative for confusion. PAST MEDICAL HISTORY Past Medical History: Diagnosis Date ED (erectile dysfunction) Hemorrhoids Hydrocephalus, adult (HCC) Kidney stone Neuropathy SUPERVISOR POST WAVE (ventriculoperitoneal) shunt status SURGICAL HISTORY Past Surgical History: Procedure Laterality Date BRAIN SURGERY CHOLECYSTECTOMY COLONOSCOPY HERNIA REPAIR CURRENT MEDICATIONS Previous Medications ACETAMINOPHEN (TYLENOL) 325 MG TABLET 650 mg every 6 hours as needed BACLOFEN (LIORESAL) 10 MG TABLET TAKE 1 TABLET BY MOUTH 3 TIMES DAILY NEEDED FOR MUSCLE SPASMS BISACODYL (DULCOLAX) [address] 10 mg rectally daily as needed BUMETANIDE (BUMEX) 2 MG TABLET TAKE 1 TABLET BY MOUTH DAILY ELASTIC BANDAGES & SUPPORTS (MEDICAL COMPRESSION STOCKINGS) MISC 1 each by Does not apply route daily as needed (swelling) GINSENG 100 MG CAPS Take 100 mg by mouth daily HANDICAP PLACARD MISC by Does not apply route Duration: 5 years2023 LEVETIRACETAM (KEPPRA) 750 MG TABLET Take 1 tablet by mouth 2 times daily MAGNESIUM HYDROXIDE (MILK OF MAGNESIA) 400 MG/5ML SUSPENSION Take 30 mLs by mouth daily as needed for Constipation MULTIPLE VITAMINS-MINERALS (THERA M PLUS) TABS Take 1 tablet by mouth daily POTASSIUM CHLORIDE (KLOR-CON M) 20 MEQ EXTENDED RELEASE TABLET TAKE 1 TABLET BY MOUTH DAILY TAMSULOSIN (FLOMAX) 0.4 MG CAPSULE Take 1 capsule by mouth daily WARFARIN (COUMADIN) 6 MG TABLET Take 1 tablet by mouth daily ALLERGIES Alcohol, Cortisone, and Morphine FAMILY HISTORY Family History Problem Relation Age of Onset Cancer Mother Heart Disease Father SOCIAL HISTORY Social History Socioeconomic History Marital status: Tobacco Use Smoking status: Former Packs/day: 1.00 Years: 10.00 Pack years: 10.00 Types: Cigars, Cigarettes Smokeless tobacco: Never Vaping Use Vaping Use: Never used Substance and Sexual Activity Alcohol use: No Drug use: No Sexual activity: Not Currently SCREENINGS PHYSICAL EXAM (up to 7 for level 4, 8 or more for level 5) ED Triage Vitals BP Temp Temp src Pulse Resp SpO2 Height Weight -- -- -- -- -- -- -- -- BP 99/60 Pulse 99 Temp 98 ?F (36.7 ?C) Resp 18 Ht 5' 9 (1.753 m) Wt 79.4 kg (175 lb) SpO2 97% BMI 25.84 kg/m? Constitutional alert, in NAD Head- normocephalic, atraumatic, no cephalohematoma or lacerations Eyes- PERRL, pupils 3 -->2 mm b/l, EOMI, no signs of trauma Ears- no fluid drainage Nose- no blood in nares bilaterally, no fluid drainage, no septal hematoma Face- midface stable and nontender Mouth- oropharynx clear, no fractured/loose teeth, no dental malocculsion C-spine nontender and no stepoffs Back- no stepoffs, nontender, no abrasions CV- RRR, no murmurs Chest- nontender, no crepitance, lungs CTA bilaterally Abdomen- soft, nontender, nondistended Pelvis- stable to compression and nontender Extremities- atraumatic, nontender at all joints, FROM to passive manipulation Skin Lacerations, none. Abrasions, none Procedures DIAGNOSTIC RESULTS RADIOLOGY (Per Emergency Physician): CT head without acute process identified Interpretation per the Radiologist below, if available at the time of this note: CT HEAD WO CONTRAST R (more content not included)... Normal [facility] Hemogram w/ Autodiffon 03-02 Abs Baso Cnt 0.2 10*3/uL Normal 0.0-0.2 [facility] Comment on above: Performed By: #### H EMDF, PT, CMP3 ####[facility] [place] [address] Abs Neutrophile Cnt 10.7 10*3/uL High 1.8-7.0 [facility] Comment on above: Performed By: #### H EMDF, PT, CMP3 ####[address] [address] Basophils/100 WBC (Bld) 1.1 % Normal 0.0-2.0 [facility] Comment on above: Performed By: #### H EMDF PT, CMP3 ####[address] [address] Eosinophils (Bld) [#/Vol] 0.1 10*3/uL Normal 0.0-0.5 [facility] Comment on above: Performed By: #### H EMDF, PT, CMP3 ####[address] [address] Eosinophils/100 WBC (Bld) 0.5 % Low 1.0-6.0 [facility] Comment on above: Performed By: #### H EMDF PT, CMP3 ####[address] [address] Granulocytes/100 WBC (Bld) 73.9 % Normal 40.0-80.0 [facility] Comment on above: Performed By: #### H EMDF PT, CMP3 ####[address] [address] Lymphocytes (Bld) [#/Vol] 3.0 10*3/uL Normal 1.0-4.3 [facility] Comment on above: Performed By: #### H EMDF, PT, CMP3 ####[address] [address] Lymphocytes/100 WBC (Bld) 20.6 % Normal 20.0-40.0 [facility] Comment on above: Performed By: #### H EMDF, PT, CMP3 ####[address] [address] Monocytes (Bld) [#/Vol] 0.6 10*3/uL Normal 0.0-0.8 [facility] Comment on above: Performed By: #### H EMDF, PT, CMP3 ####[address] Monocytes/100 WBC (Bld) 3.9 % Normal 2.0-10.0 [facility] Comment on above: Performed By: #### H EMDF PT, CMP3 ####[address] [place], [place] Platelet mean volume (Bld) [Entitic vol] 8.5 fL Normal 7.4-12.4 [facility] Comment on above: Result Comment: MPV is a calculated measurement using platelet volume ratio. Performed By: #### H EMDF PT, CMP3 ####[address] [place], [place] Platelets (Bld) [#/Vol] 411 10*3/uL Normal 140-440 [facility] Comment on above: Performed By: #### H EMDF PT, CMP3 ####[address] [place], [place] Erythrocyte distribution width (RBC) [Ratio] 17.0 % High 11.5-14.5 [facility] Comment on above: Performed By: #### H EMDHeydi PT, CMP3 ####[address] [place], [place] Hematocrit (Bld) [Volume fraction] 37.4 % Low 40.0-52.0 [facility] Comment on above: Performed By: #### H EMDF, PT, CMP3 ####[address] Hemoglobin (Bld) [Mass/Vol] 12.1 g/dL Low 13.0-18.0 [facility] Comment on above: Performed By: #### H EMDF, PT, CMP3 ####[address] [place], [place] MCH (RBC) [Entitic mass] 26.2 pg Normal 26.0-34.0 [facility] Comment on above: Performed By: #### H EMDF, PT, CMP3 ####[address] MCHC 32.3 % Normal 32.0-36.0 [facility] Comment on above: Performed By: #### H EMDF, PT, CMP3 ####[address] [place] MCV (RBC) [Entitic vol] 81.1 fL Normal 80.0-98.0 [facility] Comment on above: Performed By: #### H EMDF, PT, CMP3 ####[address] [place], [place] RBC (Bld) [#/Vol] 4.61 10*6/uL Normal 4.40-5.90 [facility] Comment on above: Performed By: #### H EMDF, PT, CMP3 ####[address] WBC (Bld) [#/Vol] 14.5 10*3/uL High 3.6-10.7 [facility] Comment on above: Performed By: #### H EMDF, PT, CMP3 ####[address] Prothrombin Timeon 2 INR 1.9 High 0.9-1.1 [facility] Comment on above: Result Comment: Harry mmended Anticoagulant Therapy: SEE BELOW ----- INR of 2.0 - 3.0 : - Prophylaxis of Venous Thrombosis (high-risk surgery) - Treatment of Venous Thrombosis - Treatment of Pulmonary Embolism (Includes tissue heart valves, Acute Myocardial Infarction to prevent systemic embolism, Valvular Heart Disease, and Atrial Fibrillation) ----- INR of 2.5 - 3.5 : - Mechanical Prosthetic Valves (high risk) - If oral anticoagulant therapy is used to prevent Myocardial Infarction Performed By: #### H EMDF, PT, CMP3 ####[address] [place], [place] PT Coag (PPP) [Time] 18.9 s High 9.0-12.0 [facility] Comment on above: Result Comment: . Performed By: #### H EMDF, PT, CMP3 ####[facility] [place] [address] Protime-INRon 03-02-2022 INR Coag (Bld) [Relative time] 1.9 {INR} High [facility] Comment on above: Recommended Anticoag ulant Therapy: SEE BELOW ----- INR of 2.0 - 3.0 : - Prophylaxis of Venous Thrombosis (high-risk surgery) - Treatment of Venous Thrombosis - Treatment of Pulmonary Embolism (Includes tissue heart valves, Acute Myocardial Infarction to prevent systemic embolism, Valvular Heart Disease, and Atrial Fibrillation) ----- INR of 2.5 - 3.5 : - Mechanical Prosthetic Valves (high risk) - If oral anticoagulant therapy is used to prevent Myocardial Infarction Interpretation and review of laboratory results Abnormal [facility] PT Coag (PPP) [Time] 18.9 s High 9.0 - 12.0 s [facility] Comment on above: . Test Performed by [facility], [address] [place] [id number] [facility] Laboratory - CoagulationOrde red By: Carlos Cavazos on 02-20-2022 INR Coag (Bld) [Relative time] 2.6 {INR} [facility] Comment on above: Critical Value > 4.0 Whole blood prothrombin time Ordered By: Carlos Cavazos on 02-20-2022 PT Coag (Bld) [Time] 30.1 s 11.7-14.9 [facility] Laboratory - CoagulationOrde red By: Carlos Cavazos on 02-13-2022 INR Coag (Bld) [Relative time] 2.3 {INR} [facility] Comment on above: Critical Value > 4.0 Whole blood prothrombin time Ordered By: Carlos Cavazos on 02-13-2022 PT Coag (Bld) [Time] 26.7 s 11.7-14.9 [facility] Laboratory - CoagulationOrde red By: Carlos Cavazos on 02-06-2022 INR Coag (Bld) [Relative time] 2.3 {INR} [facility] Comment on above: Critical Value > 4.0 Whole blood prothrombin time Ordered By: Carlos Cavazos on 02-06-2022 PT Coag (Bld) [Time] 26.6 s 11.7-14.9 [facility] Laboratory - Coagulationon 0 01-30-2022 INR Coag (Bld) [Relative time] 1.7 {INR} [facility] Work Phone: Comment on above: Critical Value > 4.0 Whole blood prothrombin time on 01-30-2022 PT Coag (Bld) [Time] 20.1 s 11.7-14.9 [facility] Work Phone: Laboratory - Coagulationon 0 01-26-2022 INR Coag (Bld) [Relative time] 1.8 {INR} [facility] [facility] Work Phone: Comment on above: Critical Value > 4.0 Whole blood prothrombin time on 01-26-2022 PT Coag (Bld) [Time] 21.8 s 11.7-14.9 [facility] Work Phone: Laboratory - Coagulationon 0 01-19-2022 INR Coag (Bld) [Relative time] 2.2 {INR} [facility] Work Phone: Comment on above: Critical Value > 4.0 Whole blood prothrombin time on 01-19-2022 PT Coag (Bld) [Time] 25.7 s 11.7-14.9 [facility] Work Phone: INR in Blood by Coagulation assayon 01-10-2022 INR Coag (Bld) [Relative time] 1.8 {INR} [facility] Work Phone: Laboratory - Coagulationon 0 01-10-2022 PT Coag (PPP) [Time] 20.9 s 11.7-14.9 [facility] Work Phone: Basophil percentageon 2021 Chloride [Moles/Vol] 107 mmol/L 98-107 [facility] Work Phone: Glucose [Mass/Vol] 82 mg/dL 74-106 [facility] Work Phone: Potassium [Moles/Vol] 3.4 mmol/L 3.5-5.1 [facility] Work Phone: Sodium [Moles/Vol] 143 mmol/L 136-145 [facility] Work Phone: WBC (Bld) [#/Vol] 10.4 10*3/uL 4.4-11.0 [facility] Work Phone: Blood erythrocytes count (nu mber/volume)on 01-05-2022 RBC (Bld) [#/Vol] 4.27 10*6/uL 4.6-6.2 [facility] Work Phone: Blood hemoglobin measurement (mass/volume)on 01-05-2022 Hemoglobin (Bld) [Mass/Vol] 11.2 g/dL 13.0-16.5 [facility] Work Phone: Blood platelet mean volumeon 01-05-2022 Platelet mean volume (Bld) [Entitic vol] 10.3 fL 6.2-12.0 [facility] Work Phone: Determination of erythrocyte mean corpuscular volume (MCV)on 01-05-2022 MCV (RBC) [Entitic vol] 84.8 fL 80-94 [facility] Work Phone: Hematocrit Auto (Bld) [Volum e fraction]on 01-05-2022 Hematocrit (Bld) [Volume fraction] 36.2 % 40-54 [facility] Work Phone: Laboratory - Chemistry and C hemistry - challengeon 01-05-2022 CO2 [Moles/Vol] 28.0 mmol/L 21.0-32.0 [facility] Work Phone: Urea nitrogen/Creatinine [Mass ratio] 20.0 mg/mg 10-20 [facility] Work Phone: Laboratory - Hematology and Cell countson 01-05-2022 Erythrocyte distribution width (RBC) [Entitic vol] 51.8 fL 35.1-43.9 [facility] Work Phone: Erythrocyte distribution width (RBC) [Ratio] 16.8 % 11.6-14.6 [facility] Work Phone: MCH (RBC) [Entitic mass] 26.2 pg 27.0-32.0 [facility] Work Phone: MCHC Auto (RBC) [Mass/Vol]on 01-05-2022 MCHC (RBC) [Mass/Vol] 30.9 g/dL 32-36 [facility] Work Phone: No Panel Informationon 01-05 Estimated GFR (MDRD) Amer 133 mL/min >60 [facility] Work Phone: Comment on above: GFR Calc Estimated GFR (MDRD) Non-Af Amer 110 mL/min >60 [facility] Work Phone: Comment on above: Non- GFR Calc Platelets bldon 01-05-2022 Platelets (Bld) [#/Vol] 373 10*3/uL 150-450 [facility] Work Phone: Serum or plasma calcium oral urement (mass/volume)on 01-05-2022 Calcium [Mass/Vol] 8.8 mg/dL 8.5-10.1 [facility] Work Phone: Serum or plasma creatinine m easurement (mass/volume)on 01-05-2022 Creatinine [Mass/Vol] 0.75 mg/dL 0.70-1.30 [facility] Work Phone: Comment on above: The validity of the calculated GFR & GFRAA in patients over 70 years has not been determined. Clinical correlation is essential. Serum or plasma urea nitroge n measurement (mass/volume)on 01-05-2022 Urea nitrogen [Mass/Vol] 15 mg/dL 7-18 [facility] Work Phone: Thin prep Papanicolaou smear with manual screeningon 01-05-2022 Thin prep Papanicolaou smear with manual screening 8 5-15 [facility] Work Phone: Laboratory - Coagulationon 0 12-30-2021 INR Coag (Bld) [Relative time] 2.0 {INR} [facility] Work Phone: Comment on above: Critical Value > 4.0 Whole blood prothrombin time on 12-30-2021 PT Coag (Bld) [Time] 23.7 s 11.7-14.9 [facility] Work Phone: Basophil percentageon 2021 Chloride [Moles/Vol] 106 mmol/L 98-107 [facility] Work Phone: Glucose [Mass/Vol] 91 mg/dL 74-106 [facility] Work Phone: Potassium [Moles/Vol] 3.4 mmol/L 3.5-5.1 [facility] Work Phone: Sodium [Moles/Vol] 141 mmol/L 136-145 [facility] Work Phone: WBC (Bld) [#/Vol] 10.2 10*3/uL 4.4-11.0 [facility] Work Phone: Blood erythrocytes count (nu mber/volume)on 12-28-2021 RBC (Bld) [#/Vol] 4.22 10*6/uL 4.6-6.2 [facility] Work Phone: Blood hemoglobin measurement (mass/volume)on 12-28-2021 Hemoglobin (Bld) [Mass/Vol] 11.2 g/dL 13.0-16.5 [facility] Work Phone: Blood platelet mean volumeon 12-28-2021 Platelet mean volume (Bld) [Entitic vol] 10.1 fL 6.2-12.0 [facility] Work Phone: Determination of erythrocyte mean corpuscular volume (MCV)on 12-28-2021 MCV (RBC) [Entitic vol] 82.7 fL 80-94 [facility] Work Phone: Hematocrit Auto (Bld) [Volum e fraction]on 12-28-2021 Hematocrit (Bld) [Volume fraction] 34.9 % 40-54 [facility] Work Phone: Laboratory - Chemistry and C hemistry - challengeon 12-28-2021 CO2 [Moles/Vol] 30.0 mmol/L 21.0-32.0 [facility] Work Phone: Urea nitrogen/Creatinine [Mass ratio] 33.7 mg/mg 10-20 [facility] Work Phone: Laboratory - Hematology and Cell countson 12-28-2021 Erythrocyte distribution width (RBC) [Entitic vol] 49.1 fL 35.1-43.9 [facility] Work Phone: Erythrocyte distribution width (RBC) [Ratio] 16.5 % 11.6-14.6 [facility] Work Phone: MCH (RBC) [Entitic mass] 26.5 pg 27.0-32.0 [facility] Work Phone: MCHC Auto (RBC) [Mass/Vol]on 12-28-2021 MCHC (RBC) [Mass/Vol] 32.1 g/dL 32-36 [facility] Work Phone: No Panel Informationon 12-28 Estimated GFR (MDRD) Amer 174 mL/min >60 [facility] Work Phone: Comment on above: GFR Calc Estimated GFR (MDRD) Non-Af Amer 143 mL/min >60 [facility] Work Phone: Comment on above: Non- GFR Calc Platelets bldon 12-28-2021 Platelets (Bld) [#/Vol] 339 10*3/uL 150-450 [facility] Work Phone: Serum or plasma calcium oral urement (mass/volume)on 12-28-2021 Calcium [Mass/Vol] 8.6 mg/dL 8.5-10.1 [facility] Work Phone: Serum or plasma creatinine m easurement (mass/volume)on 12-28-2021 Creatinine [Mass/Vol] 0.59 mg/dL 0.70-1.30 [facility] Work Phone: Comment on above: The validity of the calculated GFR & GFRAA in patients over 70 years has not been determined. Clinical correlation is essential. Serum or plasma urea nitroge n measurement (mass/volume)on 12-28-2021 Urea nitrogen [Mass/Vol] 20 mg/dL 7-18 [facility] Work Phone: Thin prep Papanicolaou smear with manual screeningon 12-28-2021 Thin prep Papanicolaou smear with manual screening 5 5-15 [facility] Work Phone: CULTURE BLOODon 12-27-2021 Microscopic examination of blood, culture CULTURE BLOOD --> Status: F No growth at 5 days. Normal [facility] Comment on above: Performed By: #### C /BLD #### [employer] [address] [place], [place] Laboratory - Coagulationon 0 12-26-2021 INR Coag (Bld) [Relative time] 1.7 {INR} [facility] Work Phone: Comment on above: Critical Value > 4.0 Whole blood prothrombin time on 12-26-2021 PT Coag (Bld) [Time] 20.8 s 11.7-14.9 [facility] Work Phone: Basic Metabolic Panelon 12-05 Calcium [Mass/Vol] 8.8 mg/dL Normal 8.4-10.4 [facility] Comment on above: Performed By: #### C RP2, ESR, HEMDF, BMP3 ####[employer] [place], [place] Anion gap [Moles/Vol] 6 mmol/L Normal 3-13 [facility] Comment on above: Performed By: #### C RP2, ESR, HEMDF, BMP3 ####[employer] [place], [place] CO2 [Moles/Vol] 27 mmol/L Normal 22-30 [facility] Comment on above: Performed By: #### C RP2, ESR, HEMDF, BMP3 ####[facility] [place], [place] Glucose [Mass/Vol] 100 mg/dL Normal 70-100 [facility] Comment on above: Performed By: #### C RP2, ESR, HEMDF, BMP3 ####[employer] [address] [place], [place] Urea nitrogen [Mass/Vol] 18 mg/dL High 7-17 [facility] Comment on above: Performed By: #### C RP2, ESR, HEMDF, BMP3 ####[facility] [id number] [place], [place] Creatinine [Mass/Vol] 0.73 mg/dL Normal 0.52-1.25 [facility] Comment on above: Performed By: #### C RP2, ESR, HEMDF, BMP3 ####[facility] [id number] [place], [place] eGFR OTHER > 90.0 Normal >60 [facility] Comment on above: Result Comment: KDIG O guidelines provide the following GFR categories: Stage GFR(ml/min/1.73 m2) Terms G1 >=90 Normal or high G2 60-89 Mildly decreased* G3a 45-59 Mildly to moderately decreased G3b 30-44 Moderately to severely decreased G4 15-29 Severely decreased G5 <15 Kidney failure *Relative to young adult level. In the absence of evidence of kidney damage, neither GFR category G1 nor G2 fulfill the criteria for CKD. The CKD-EPI equation is validated in individuals 18 years of age and older. Currently the best equation for estimating glomerular filtration rate (GFR) from serum creatinine in children is the Bedside Medina equation. It is less accurate in patients with extremes of muscle mass, restriction of dietary protein, ingestion of creatine, extra-renal metabolism of creatinine, or treatment with medications that affect renal tubular creatinine secretion. Performed By: #### C RP2, ESR, HEMDF, BMP3 ####[facility] [id number] [place], [place] GFR/1.73 sq M.predicted among blacks MDRD (S/P/Bld) [Vol rate/Area] mL/min/{1.73_m2} Normal >60 [facility] Comment on above: Performed By: #### C RP2, ESR, HEMDF, BMP3 ####[address] [place] [address] Potassium [Moles/Vol] 3.7 mmol/L Normal 3.5-5.1 [facility] Comment on above: Performed By: #### C RP2, ESR, HEMDF, BMP3 ####[facility] [place] [address] Chloride [Moles/Vol] 106 mmol/L Normal 98-107 [facility] Comment on above: Performed By: #### C RP2, ESR, HEMDF, BMP3 ####[facility] [place] [address] Sodium [Moles/Vol] 139 mmol/L Normal 135-145 [facility] Comment on above: Performed By: #### C RP2, ESR, HEMDF, BMP3 ####[address] [place] [address] Anion gap [Moles/Vol] 6 mmol/L 3 - 13 mmol/L [facility] Calcium [Mass/Vol] 8.8 mg/dL 8.4 - 10. 4 mg/dL [facility] Chloride [Moles/Vol] 106 mmol/L 98 - 10 7 mmol/L [facility] CO2 [Moles/Vol] 27 mmol/L 22 - 30 mmol/L [facility] Creatinine [Mass/Vol] 0.73 mg/dL 0.52 - 1.25 mg/dL [facility] eGFR mL/min 60 - P INF mL/min [facility] EGFR IF NonAfrican Tunisian mL/min 60 - PINF mL/min [facility] Comment on above: KDIGO guidelines pro vide the following GFR categories: Stage GFR(ml/min/1.73 m2) Terms G1 >=90 Normal or high G2 60-89 Mildly decreased* G3a 45-59 Mildly to moderately decreased G3b 30-44 Moderately to severely decreased G4 15-29 Severely decreased G5 <15 Kidney failure *Relative to young adult level. In the absence of evidence of kidney damage, neither GFR category G1 nor G2 fulfill the criteria for CKD. The CKD-EPI equation is validated in individuals 18 years of age and older. Currently the best equation for estimating glomerular filtration rate (GFR) from serum creatinine in children is the Bedside Medina equation. It is less accurate in patients with extremes of muscle mass, restriction of dietary protein, ingestion of creatine, extra-renal metabolism of creatinine, or treatment with medications that affect renal tubular creatinine secretion. Glucose [Mass/Vol] 100 mg/dL 70 - 100 mg/dL [facility] Potassium [Moles/Vol] 3.7 mmol/L 3.5 - 5.1 mmol/L [facility] Sodium [Moles/Vol] 139 mmol/L 135 - 145 mmol/L [facility] Urea nitrogen (BldV) [Mass/Vol] 18 mg/dL High 7 - 17 mg/dL [facility] Basophil percentageon 2021 Basophil percentage 25-50 SEEN /hpf 0-5 [facility] Work Phone: Chloride [Moles/Vol] 106 mmol/L 98-107 [facility] Work Phone: Glucose [Mass/Vol] 93 mg/dL 74-106 [facility] Work Phone: Potassium [Moles/Vol] 3.5 mmol/L 3.5-5.1 [facility] Work Phone: Sodium [Moles/Vol] 140 mmol/L 136-145 [facility] Work Phone: WBC (Bld) [#/Vol] 9.6 10*3/uL 4.4-11.0 [facility] Work Phone: Bilirubin Test strip Ql (U)o n 12-22-2021 Bilirubin Ql (U) Negative Negative [facility] Work Phone: Blood erythrocytes count (nu mber/volume)on 12-22-2021 RBC (Bld) [#/Vol] 4.34 10*6/uL 4.6-6.2 [facility] Work Phone: Blood hemoglobin measurement (mass/volume)on 12-22-2021 Hemoglobin (Bld) [Mass/Vol] 11.5 g/dL 13.0-16.5 [facility] Work Phone: Blood platelet mean volumeon 12-22-2021 Platelet mean volume (Bld) [Entitic vol] 10.8 fL 6.2-12.0 [facility] Work Phone: C-Reactive Proteinon 022 CRP [Mass/Vol] 27.2 mg/L High 0.0-9.9 [facility] Comment on above: Result Comment: . Performed By: #### C RP2, ESR, HEMDF, BMP3 ####[employer] [id number] [place] [address] CRP [Mass/Vol] 27.2 mg/L High 0 - 9.9 mg/L [facility] Comment on above: . CBC with Auto Differentialon 12-22-2021 Absolute Baso # 0.1 10*3/uL 0 - 0.2 10*3/uL [facility] Absolute Neut # 5.9 10*3/uL 1.8 - 7 10*3/uL [facility] Basophils/100 WBC (Bld) 0.7 % 0 - 2 % [facility] Eosinophils (Bld) [#/Vol] 0.2 10*3/uL 0 - 0.5 10*3/uL [facility] Eosinophils/100 WBC (Bld) 2.3 % 1 - 6 % [facility] Granulocytes/100 WBC (Bld) 57.8 % 40 - 80 % [facility] Hematocrit (Bld) [Volume fraction] 33.3 % Low 40 - 52 % [facility] Hemoglobin (Bld) [Mass/Vol] 11.0 g/dL Low 13 - 18 g/dL [facility] Interpretation and review of laboratory results Abnormal [facility] Lymphocytes (Bld) [#/Vol] 3.3 10*3/uL 1 - 4.3 10*3/uL [facility] Lymphocytes/100 WBC (Bld) 33.0 % 20 - 40 % [facility] MCH (RBC) [Entitic mass] 26.5 pg 26 - 34 pg [facility] MCHC (RBC) [Mass/Vol] 33.1 % 32 - 36 % [facility] MCV (RBC) [Entitic vol] 80.2 fL 80 - 98 fL [facility] Monocytes (Bld) [#/Vol] 0.6 10*3/uL 0 - 0.8 10*3/uL [facility] Monocytes/100 WBC (Bld) 6.2 % 2 - 10 % [facility] Platelet distribution width (Bld) [Ratio] 17.5 % High 11.5 - 14.5 % [facility] Platelet mean volume (Bld) [Entitic vol] 8.0 fL 7.4 - 12.4 fL [facility] Comment on above: MPV is a calculated measurement using platelet volume ratio. Platelets (Bld) [#/Vol] 368 10*3/uL 140 - 440 10*3/uL [facility] RBC (Bld) [#/Vol] 4.15 10*6/uL Low 4.4 - 5.9 10*6/uL [facility] WBC (Bld) [#/Vol] 10.1 10*3/uL 3.6 - 10.7 10*3/uL [facility] Test Performed by [facility], [address] [place] [address] [facility] COVID-19, Flu A/B, and RSV C omboon 12-22-2021 Influenza A by PCR Not detected [facility] A Influenza B by PCR Not detected [facility] A RSV PCR Not Detected. Expected Result: Not Detected _ Method: Real-time, RT-PCR This assay was developed by [employer] and distributed under an Emergency Use Authorization (EUA) granted by the FDA for the qualitative detection of nucleic acids from SARS-CoV-2, Influenza A, Influenza B, and Respiratory Syncytial Virus. Provider and patient fact sheets can be found at https://www.fda.gov/media /775199/download and https://www.fda.gov/media /487231/download. [facility] SARS-CoV-2 (COVID-19) RNA MEGAN+probe Ql (Unsp spec) Not detected [facility] Test Performed by [place] [id number] [facility] CR Foot Complete 3+ Views Le fton 12-22-2021 CR Foot Complete 3+ Views Left Patient Name: ANDREW SIFUENTES Diagnostic Radiology ACCESSION EXAM DATE/TIME PROCEDURE ORDERING PROVIDER [id number] 12/22/2021 00:09 EDT CR Foot Complete 3+ SANDY HIDALGO, HENRY Godoy Views Left CPT code 27009 Reason For Exam (CR Foot Complete 3+ Views Left) eval for osteo, larger wound on heel smaller wound on distal fibula. Report CLINICAL INFORMATION: Left foot pain. Heel wound. AP, oblique, and lateral views of the left foot are provided. The examination is compared to a previous study dated 10/21/2021. FINDINGS: An ulcer is noted about the heel. The adjacent calcaneus cortex remains intact without radiographic evidence of osteomyelitis. The joint spaces of the left foot are well-maintained. There is no fracture or dislocation. There is no radiopaque foreign body. IMPRESSION: 1. Left heel ulcer. 2. The adjacent cortex of the calcaneus is maintained. There is no radiographic evidence of acute osteomyelitis. 3. No fracture. Report Dictated on Final Dictated: 12/22/2021 0:21 am Dictating Physician: MD SOLANO JEFFREY Signed Date and Time: 12/22/2021 0:22 am Signed by: MD SOLANO JEFFREY Transcribed Date and Time: 12/22/2021 0:21 Normal [facility] Calcium oxalate crystals det ection in urine sediment by light microscopyon 12-22-2021 Calcium oxalate crystals LM Ql (Urine sed) 1+ /hpf [facility] Work Phone: Determination of erythrocyte mean corpuscular volume (MCV)on 12-22-2021 MCV (RBC) [Entitic vol] 84.3 fL 80-94 [facility] Work Phone: ED Provider Noteon ED Provider Note Emergency Department Encounter [facility] EMERGENCY DEPT Patient: Andrew Sifuentes : 1950 Date of Evaluation: 12/21/2021 ED Supervising Physician: Sharon Olivia MD I independently examined and evaluated Andrew Sifuentes. In brief, Andrew Sifuentes is a 71 y.o. male with a past medical history significant for DVTs, malnutrition, pressure ulcers, and hyperlipidemia who presents the emergency department for evaluation for concern for osteomyelitis. Patient has had wound in his leg for a while. According to EMS detention staff completed x-ray of the lower extremity and there was concern for osteomyelitis hence transferring patient to the hospital. Patient states this time the wounds on the left lower extremity for extended period of time. He denies fevers or chills. Patient states detention staff have been taking care of the wound for him. Focused exam: Blood pressure 108/67, pulse 77, temperature 97.9 ?F (36.6 ?C), temperature source Oral, resp. rate 16, height 5' 9 (1.753 m), weight 79.4 kg (175 lb), SpO2 96 %. [id number] in no acute distress. Alert and oriented X 2. Lungs clear to auscultation bilaterally with no wheezes or crackles appreciated. Heart rate and rhythm regular with no murmurs. Abdomen soft nontender nondistended with positive bowel sounds. No edema appreciated on the lower extremities bilaterally. I performed a substantial portion of the visit including the MDM. Brief ED course/MDM: Patient presenting for evaluation for osteomyelitis of the left lower extremity noted on x-ray at the nursing facility. Given presentation work-up in the department with no leukocytosis, stable anemia, slightly elevated CRP and sedimentation rate but improved from previous, negative COVID, RSV, and influenza tests, no electrolyte abnormalities, and no renal function impairment. Obtained x-rays of the left foot with a heel ulcer appreciated but no signs of osteomyelitis. Discussed lab and imaging results with the patient. Discussed the patient plan for discharge home with wound care Patient verbalized understanding of information given and agreed to plan. Was discharged in stable condition. Critical care time was 15 minutes. All diagnostic, treatment, and disposition decisions were made by myself in conjunction with the [facility]. For all further details of the patient's emergency department visit, please see their documentation. This will serve as my [facility] Supervisory note and shared attestation. (Please note that portions of this note may have been completed with a voice recognition program. Efforts were made to edit the dictations but occasionally words are mis-transcribed.) Sharon Olivia MD [employer] Sharon Olivia MD 12/22/21 0305 [facility] ED Provider Note [facility] EMERGENCY DEPT EMERGENCY DEPARTMENT ENCOUNTER Pt Name: Andrew Sifuentes Birthdate 1950 Date of evaluation: 12/21/2021 Provider: SANIA Lou CHIEF COMPLAINT Chief Complaint Patient presents with [facility] on left lower leg and and have concerns for possible osteomyelitis A&Ox2 to self and place, stated year 2022 sandra martini HISTORY OF PRESENT ILLNESS (Location/Symptom, Timing/Onset, Context/Setting, Quality,Duration, Modifying Factors, Severity) Note limiting factors. HPI I have seen this patient With supervising physician Does this patient come from an ECF, SNF, Rehab, Halfway or other Congregate setting: no (If yes to above patient needs a Covid-19 test) Andrew Sifuentes is a 71 y.o. male who presents to the emergency department. Patient comes from a nursing facility due to a wound within the patient's left foot. Allegedly had x-rays performed today showing possible osteomyelitis. No further information was able to be obtained by EMS whether the patient has been treated with antibiotics or not. Patient is alert and oriented X2. Patient has no other complaints at this time REVIEW OF SYSTEMS (2+ for level 4; 10+ for level 5) Review of Systems Constitutional: Negative for chills, fatigue and fever. HENT: Negative for congestion, sinus pain, sore throat and voice change. Eyes: Negative. Respiratory: Negative for cough, shortness of breath and wheezing. Cardiovascular: Negative for chest pain, palpitations and leg swelling. Gastrointestinal: Negative for abdominal distention, abdominal pain, blood in stool, constipation, diarrhea, nausea and vomiting. Endocrine: Negative. Genitourinary: Negative for dysuria, frequency and hematuria. Musculoskeletal: Negative for arthralgias and neck stiffness. Skin: Negative for color change, pallor, rash and wound. Neurological: Negative for dizziness, weakness, light-headedness, numbness and headaches. Psychiatric/Behavioral: Negative. PAST MEDICAL HISTORY Past Medical History: Diagnosis Date ED (erectile dysfunction) Hemorrhoids Hydrocephalus, adult (HCC) Kidney stone Neuropathy SUPERVISOR POST WAVE (ventriculoperitoneal) shunt status SURGICAL HISTORY Past Surgical History: Procedure Laterality Date BRAIN SURGERY CHOLECYSTECTOMY COLONOSCOPY HERNIA REPAIR CURRENT MEDICATIONS Previous Medications BACLOFEN (LIORESAL) 10 MG TABLET TAKE 1 TABLET BY MOUTH 3 TIMES DAILY NEEDED FOR MUSCLE SPASMS BUMETANIDE (BUMEX) 2 MG TABLET TAKE 1 TABLET BY MOUTH DAILY ELASTIC BANDAGES & SUPPORTS (MEDICAL COMPRESSION STOCKINGS) MISC 1 each by Does not apply route daily as needed (swelling) GINSENG 100 MG CAPS Take 100 mg by mouth daily HANDICAP PLACARD MISC by Does not apply route Duration: 5 years, 2023 LEVETIRACETAM (KEPPRA) 750 MG TABLET Take 1 tablet by mouth 2 times daily POTASSIUM CHLORIDE (KLOR-CON M) 20 MEQ EXTENDED RELEASE TABLET TAKE 1 TABLET BY MOUTH DAILY TAMSULOSIN (FLOMAX) 0.4 MG CAPSULE Take 1 capsule by mouth daily WARFARIN (COUMADIN) 6 MG TABLET Take 1 tablet by mouth daily ALLERGIES Alcohol and Morphine FAMILY HISTORY Family History Problem Relation Age of Onset Cancer Mother Heart Disease Father SOCIAL HISTORY Social History Socioeconomic History Marital status: Tobacco Use Smoking status: Former Packs/day: 1.00 Years: 10.00 Pack years: 10.00 Types: Cigars, Cigarettes Smokeless tobacco: Never Vaping Use Vaping Use: Never used Substance and Sexual Activity Alcohol use: No Drug use: No Sexual activity: Not Currently SCREENINGS [place]mie Coma Scale Eye Opening: Spontaneous Best Verbal Response: Confused Best Motor Response: Obeys commands [place] Coma Scale Score: 14 Patient symptoms are consistent with sepsis, severe sepsis or septic shock (if yes, use use sepsis core measure): no PHYSICAL EXAM (up to 7 forlevel 4, 8 or more for level 5) ED Triage Vitals [12/21/21 2352] BP Temp Temp Source Heart Rate Resp SpO2 Height Weight 120/70 97.9 ?F (36.6 ?C) Oral 83 16 96 % 5' 9 (1.753 m) 175 lb (79.4 kg) Physical Exam Constitutional: General: He is not in acute distress. Appearance: He is well-developed. He is not diaphoretic. HENT: Head: Normocephalic. Eyes: General: No scleral icterus. Right eye: No discharge. Left eye: No discharge. Conjunctiva/sclera: Conjunctivae normal. Cardiovascular: Rate and Rhythm: Normal rate and regular rhythm. Heart sounds: Normal heart sounds. No murmur heard. No friction rub. No gallop. Comments: Good capillary refill Pulmonary: Effort: Pulmonary effort is normal. No respiratory distress. Breath sounds: Normal breath sounds. No stridor. No wheezing or rales. Chest: Chest wall: No tenderness. Abdominal: General: Bowel sounds are normal. There is no distension. Palpations: Abdomen is soft. Tenderness: (more content not included)... Normal [facility] Hematocrit Auto (Bld) [Volum e fraction]on 12-22-2021 Hematocrit (Bld) [Volume fraction] 36.6 % 40-54 [facility] Work Phone: Hemogram w/ Autodiffon 12-22 Abs Baso Cnt 0.1 10*3/uL Normal 0.0-0.2 [facility] Comment on above: Performed By: #### C RP2, ESR, HEMDF, BMP3 ####[address] [place] [address] Abs Neutrophile Cnt 5.9 10*3/uL Normal 1.8-7.0 [facility] Comment on above: Performed By: #### C RP2, ESR, HEMDF, BMP3 ####[address] Basophils/100 WBC (Bld) 0.7 % Normal 0.0-2.0 [facility] Comment on above: Performed By: #### C RP2, ESR, HEMDF, BMP3 ####[address] Eosinophils (Bld) [#/Vol] 0.2 10*3/uL Normal 0.0-0.5 [facility] Comment on above: Performed By: #### C RP2, ESR, HEMDF, BMP3 ####[address] [place] [address] Eosinophils/100 WBC (Bld) 2.3 % Normal 1.0-6.0 [facility] Comment on above: Performed By: #### C RP2, ESR, HEMDF, BMP3 ####[address] Erythrocyte distribution width (RBC) [Ratio] 17.5 % High 11.5-14.5 [facility] Comment on above: Performed By: #### C RP2, ESR, HEMDF, BMP3 ####[facility] [address] [place] [address] Granulocytes/100 WBC (Bld) 57.8 % Normal 40.0-80.0 [facility] Comment on above: Performed By: #### C RP2, ESR, HEMDF, BMP3 ####[address] Hematocrit (Bld) [Volume fraction] 33.3 % Low 40.0-52.0 [facility] Comment on above: Performed By: #### C RP2, ESR, HEMDF, BMP3 ####[address] Hemoglobin (Bld) [Mass/Vol] 11.0 g/dL Low 13.0-18.0 [facility] Comment on above: Performed By: #### C RP2, ESR, HEMDF, BMP3 ####[address] Lymphocytes (Bld) [#/Vol] 3.3 10*3/uL Normal 1.0-4.3 [facility] Comment on above: Performed By: #### C RP2, ESR, HEMDF, BMP3 ####[address] Lymphocytes/100 WBC (Bld) 33.0 % Normal 20.0-40.0 [facility] Comment on above: Performed By: #### C RP2, ESR, HEMDF, BMP3 ####[address] MCH (RBC) [Entitic mass] 26.5 pg Normal 26.0-34.0 [facility] Comment on above: Performed By: #### C RP2, ESR, HEMDF, BMP3 ####[address] MCHC 33.1 % Normal 32.0-36.0 [facility] Comment on above: Performed By: #### C RP2, ESR, HEMDF, BMP3 ####[address] MCV (RBC) [Entitic vol] 80.2 fL Normal 80.0-98.0 [facility] Comment on above: Performed By: #### C RP2, ESR, HEMDF, BMP3 ####[address] [place], [place] Monocytes (Bld) [#/Vol] 0.6 10*3/uL Normal 0.0-0.8 [facility] Comment on above: Performed By: #### C RP2, ESR, HEMDF, BMP3 ####[address] [place], [place] Monocytes/100 WBC (Bld) 6.2 % Normal 2.0-10.0 [facility] Comment on above: Performed By: #### C RP2, ESR, HEMDF, BMP3 ####[address] [place], [place] Platelet mean volume (Bld) [Entitic vol] 8.0 fL Normal 7.4-12.4 [facility] Comment on above: Result Comment: MPV is a calculated measurement using platelet volume ratio. Performed By: #### C RP2, ESR, HEMDF, BMP3 ####[address] Platelets (Bld) [#/Vol] 368 10*3/uL Normal 140-440 [facility] Comment on above: Performed By: #### C RP2, ESR, HEMDF, BMP3 ####[address] [place], [place] RBC (Bld) [#/Vol] 4.15 10*6/uL Low 4.40-5.90 [facility] Comment on above: Performed By: #### C RP2, ESR, HEMDF, BMP3 ####[address] [place], [place] WBC (Bld) [#/Vol] 10.1 10*3/uL Normal 3.6-10.7 [facility] Comment on above: Performed By: #### C RP2, ESR, HEMDF, BMP3 ####[address] [place], [place] Ketones Test strip Ql (U)on 12-22-2021 Ketones Ql (U) Negative Negative [facility] Work Phone: Laboratory - Chemistry and C hemistry - challengeon 12-22-2021 CO2 [Moles/Vol] 27.0 mmol/L 21.0-32.0 [facility] Work Phone: Urea nitrogen/Creatinine [Mass ratio] 22.5 mg/mg 10-20 [facility] Work Phone: Laboratory - Hematology and Cell countson 12-22-2021 Erythrocyte distribution width (RBC) [Entitic vol] 49.1 fL 35.1-43.9 [facility] Work Phone: Erythrocyte distribution width (RBC) [Ratio] 16.1 % 11.6-14.6 [facility] Work Phone: MCH (RBC) [Entitic mass] 26.5 pg 27.0-32.0 [facility] Work Phone: MCHC Auto (RBC) [Mass/Vol]on 12-22-2021 MCHC (RBC) [Mass/Vol] 31.4 g/dL 32-36 [facility] Work Phone: Mucus LM Ql (Urine sed)on Mucus Ql (Urine sed) 0 SEEN /hpf [facility] Work Phone: Nitrite Test strip Ql (U)on 12-22-2021 Nitrite Ql (U) Positive Negative [facility] Work Phone: No Panel Informationon 12-22 Estimated GFR (MDRD) Amer 152 mL/min >60 [facility] Work Phone: Comment on above: GFR Calc Estimated GFR (MDRD) Non-Af Amer 125 mL/min >60 [facility] Work Phone: Comment on above: Non- GFR Calc Interpretation and review of laboratory results Abnormal [facility] Test Performed by [facility], [address] [place] [id number] [facility] Platelets bldon 12-22-2021 Platelets (Bld) [#/Vol] 317 10*3/uL 150-450 [facility] Work Phone: Protein Test strip Ql (U)on 12-22-2021 Protein Ql (U) 30 mg/dl Negative [facility] Work Phone: SARS-CoV-2, Flu A/B and RSVo n 12-22-2021 SARS-CoV-2 (COVID-19) RNA MEGAN+probe Ql (Unsp spec) SARS-CoV-2 --> Status: F Not Detected. Flu A PCR --> Status: F Not Detected. Flu B PCR --> Status: F Not Detected. RSV PCR --> Status: F Not Detected. Expected Result: Not Detected _ Method: Real-time, RT-PCR This assay was developed by [employer] and distributed under an Emergency Use Authorization (EUA) granted by the FDA for the qualitative detection of nucleic acids from SARS-CoV-2, Influenza A, Influenza B, and Respiratory Syncytial Virus. Provider and patient fact sheets can be found at https://www.fda.gov/media /776611/download and https://www.fda.gov/media /226985/download. Expected Result: Not Detected _ Method: Real-time, RT-PCR This assay was developed by [employer] and distributed under an Emergency Use Authorization (EUA) granted by the FDA for the qualitative detection of nucleic acids from SARS-CoV-2, Influenza A, Influenza B, and Respiratory Syncytial Virus. Provider and patient fact sheets can be found at https://www.fda.gov/media /570293/download and https://www.fda.gov/media /678561/download. Normal [facility] Comment on above: Performed By: #### C VFLR ####[facility] [address] [place] [address], [id number] Sed Rateon 12-22-2021 Sed Rate 48 mm/h High 0-10 [facility] Comment on above: Performed By: #### C RP2, ESR, HEMDF, BMP3 ####[facility] [id number] [place] [address] Sedimentation Rateon 022 Interpretation and review of laboratory results Abnormal [facility] Sed Rate 48 mm/h High 0 - 10 mm/h [facility] Test Performed by [facility], [address] [place] [id number] [place] [address] [facility] Serum or plasma calcium oral urement (mass/volume)on 12-22-2021 Calcium [Mass/Vol] 8.6 mg/dL 8.5-10.1 [facility] Work Phone: Serum or plasma creatinine m easurement (mass/volume)on 12-22-2021 Creatinine [Mass/Vol] 0.67 mg/dL 0.70-1.30 [facility] Work Phone: Comment on above: The validity of the calculated GFR & GFRAA in patients over 70 years has not been determined. Clinical correlation is essential. Serum or plasma urea nitroge n measurement (mass/volume)on 12-22-2021 Urea nitrogen [Mass/Vol] 15 mg/dL - [facility] Work Phone: Squamous epithelial cells de tection in urine sediment by light microscopyon 12-22-2021 Epithelial cells.squamous LM Ql (Urine sed) 0-5 SEEN /hpf 0-5 [facility] Work Phone: Thin prep Papanicolaou smear with manual screeningon 12-22-2021 Thin prep Papanicolaou smear with manual screening 7 5-15 [facility] Work Phone: Urine blood detectionon 12-05 RBC Ql (U) 150 /ul Negative [facility] Work Phone: RBC Ql (U) 10-25 SEEN /hpf 0-5 [facility] Work Phone: Urine clarityon 12-22-2021 Clarity (U) Sl. Cloudy Clear [facility] Work Phone: Urine color determinationon 12-22-2021 Color (U) Yellow Yellow [facility] Work Phone: Urine glucose detectionon Glucose Ql (U) Normal mg/dl Normal [facility] Work Phone: Urine leukocyte esterase det ection by dipstickon 12-22-2021 Leukocyte esterase Test strip Ql (U) 500 /ul Negative [facility] Work Phone: Urine pHon 12-22-2021 pH (U) 6.0 [pH] 5.0 - 8.0 [facility] Work Phone: Urine sediment bacteria coun t by microscopy (number/high power field)on 12-22-2021 Bacteria LM.HPF (Urine sed) [#/Area] 2 /[HPF] None Seen [facility] Work Phone: Urine specific gravity measu rementon 12-22-2021 Specific gravity (U) [Rel density] 1.020 1.002-1.030 [facility] Work Phone: Urobilinogen Auto test strip Ql (U)on 12-22-2021 Urobilinogen Ql (U) Normal mg/dl Normal [facility] Work Phone: XR FOOT LEFT (MIN 3 VIEWS)on 12-22-2021 Patient Name: ANDREW LARSEN Diagnostic Radiology ACCESSION EXAM DATE/TIME PROCEDURE ORDERING PROVIDER [id number] 12/22/2021 00:09 EDT CR Foot Complete 3+ SANDY HIDALGO, TRAVIS Views Left CPT code 70328 Reason For Exam (CR Foot Complete 3+ Views Left) eval for osteo, larger wound on heel smaller wound on distal fibula. Report CLINICAL INFORMATION: Left foot pain. Heel wound. AP, oblique, and lateral views of the left foot are provided. The examination is compared to a previous study dated 10/21/2021. FINDINGS: An ulcer is noted about the heel. The adjacent calcaneus cortex remains intact without radiographic evidence of osteomyelitis. The joint spaces of the left foot are well-maintained. There is no fracture or dislocation. There is no radiopaque foreign body. IMPRESSION: 1. Left heel ulcer. 2. The adjacent cortex of the calcaneus is maintained. There is no radiographic evidence of acute osteomyelitis. 3. No fracture. Report Dictated on --- Final --- Dictated: 12/22/2021 0:21 am Dictating Physician: MD SOLANO JEFFREY Signed Date and Time: 12/22/2021 0:22 am Signed by: MD SOLANO JEFFREY Transcribed Date and Time: 12/22/2021 0:21 [facility] Albert Solano MD - 12/22/2021 [id number] ACCESSION EXAM DATE/TIME PROCEDURE ORDERING PROVIDER [id number] 12/22/2021 00:09 EDT CR Foot Complete 3+ SANDY HIDALGO, TRAVIS Views Left CPT code 83555 Reason For Exam (CR Foot Complete 3+ Views Left) eval for osteo, larger wound on heel smaller wound on distal fibula. Report CLINICAL INFORMATION: Left foot pain. Heel wound. AP, oblique, and lateral views of the left foot are provided. The examination is compared to a previous study dated 10/21/2021. FINDINGS: An ulcer is noted about the heel. The adjacent calcaneus cortex remains intact without radiographic evidence of osteomyelitis. The joint spaces of the left foot are well-maintained. There is no fracture or dislocation. There is no radiopaque foreign body. IMPRESSION: 1. Left heel ulcer. 2. The adjacent cortex of the calcaneus is maintained. There is no radiographic evidence of acute osteomyelitis. 3. No fracture. Report Dictated on --- Final --- Dictated: 12/22/2021 0:21 am Dictating Physician: MD SOLANO JEFFREY Signed Date and Time: 12/22/2021 0:22 am Signed by: MD SOLANO JEFFREY Transcribed Date and Time: 12/22/2021 0:21 [facility] Work Phone: Radiology Study observation (narrative) [facility] Work Phone: XR FOOT LEFT (MIN 3 VIEWS)Or dered By: Albert Solano on 12-22-2021 [facility] Work Phone: Basophil percentageon 2021 Chloride [Moles/Vol] 103 mmol/L 98-107 [facility] Work Phone: Glucose [Mass/Vol] 92 mg/dL 74-106 [facility] Work Phone: Potassium [Moles/Vol] 3.5 mmol/L 3.5-5.1 [facility] Work Phone: Sodium [Moles/Vol] 138 mmol/L 136-145 [facility] Work Phone: WBC (Bld) [#/Vol] 11.2 10*3/uL 4.4-11.0 [facility] Work Phone: Blood erythrocytes count (nu mber/volume)on 12-19-2021 RBC (Bld) [#/Vol] 4.50 10*6/uL 4.6-6.2 [facility] Work Phone: Blood hemoglobin measurement (mass/volume)on 12-19-2021 Hemoglobin (Bld) [Mass/Vol] 12.2 g/dL 13.0-16.5 [facility] Work Phone: Blood platelet mean volumeon 12-19-2021 Platelet mean volume (Bld) [Entitic vol] 11.3 fL 6.2-12.0 [facility] Work Phone: Determination of erythrocyte mean corpuscular volume (MCV)on 12-19-2021 MCV (RBC) [Entitic vol] 85.6 fL 80-94 [facility] Work Phone: Hematocrit Auto (Bld) [Volum e fraction]on 12-19-2021 Hematocrit (Bld) [Volume fraction] 38.5 % 40-54 [facility] Work Phone: Laboratory - Chemistry and C hemistry - challengeon 12-19-2021 CO2 [Moles/Vol] 30.0 mmol/L 21.0-32.0 [facility] Work Phone: Urea nitrogen/Creatinine [Mass ratio] 27.1 mg/mg 10-20 [facility] Work Phone: Laboratory - Hematology and Cell countson 12-19-2021 Erythrocyte distribution width (RBC) [Entitic vol] 50.5 fL 35.1-43.9 [facility] Work Phone: Erythrocyte distribution width (RBC) [Ratio] 16.0 % 11.6-14.6 [facility] Work Phone: MCH (RBC) [Entitic mass] 27.1 pg 27.0-32.0 [facility] Work Phone: MCHC Auto (RBC) [Mass/Vol]on 12-19-2021 MCHC (RBC) [Mass/Vol] 31.7 g/dL 32-36 [facility] Work Phone: No Panel Informationon 12-19 Estimated GFR (MDRD) Amer 153 mL/min >60 [facility] Work Phone: Comment on above: GFR Calc Estimated GFR (MDRD) Non-Af Amer 126 mL/min >60 [facility] Work Phone: Comment on above: Non- GFR Calc Platelets bldon 12-19-2021 Platelets (Bld) [#/Vol] 363 10*3/uL 150-450 [facility] Work Phone: Serum or plasma calcium oral urement (mass/volume)on 12-19-2021 Calcium [Mass/Vol] 9.5 mg/dL 8.5-10.1 [facility] Work Phone: Serum or plasma creatinine m easurement (mass/volume)on 12-19-2021 Creatinine [Mass/Vol] 0.66 mg/dL 0.70-1.30 [facility] Work Phone: Comment on above: The validity of the calculated GFR & GFRAA in patients over 70 years has not been determined. Clinical correlation is essential. Serum or plasma urea nitroge n measurement (mass/volume)on 12-19-2021 Urea nitrogen [Mass/Vol] 18 mg/dL 7-18 [facility] Work Phone: Thin prep Papanicolaou smear with manual screeningon 12-19-2021 Thin prep Papanicolaou smear with manual screening 5 5-15 [facility] Work Phone: Laboratory - Coagulationon 0 12-12-2021 INR Coag (Bld) [Relative time] 2.0 {INR} [facility] Work Phone: Comment on above: Critical Value > 4.0 Whole blood prothrombin time on 12-12-2021 PT Coag (Bld) [Time] 23.9 s 11.7-14.9 [facility] Work Phone: ANES POSTPROC EVALon 022 ANES POSTPROC EVAL Normal [facility] Laboratory - Coagulationon 0 12-08-2021 INR Coag (Bld) [Relative time] 1.8 {INR} [facility] Work Phone: Comment on above: Critical Value > 4.0 Whole blood prothrombin time on 12-08-2021 PT Coag (Bld) [Time] 21.0 s 11.7-14.9 [facility] Work Phone: Absolute lymphocyte counton 12-05-2021 Lymphocytes Auto (Unsp spec) [#/Vol] 2.97 10*3/uL 0.83-4.51 [facility] Work Phone: Basophil percentageon 2021 Basophils/100 WBC (Bld) 0.6 % 0-1 [facility] Work Phone: Chloride [Moles/Vol] 106 mmol/L 98-107 [facility] Work Phone: Eosinophils/100 WBC (Bld) 2.3 % 0-5 [facility] Work Phone: Glucose [Mass/Vol] 107 mg/dL 74-106 [facility] Work Phone: Comment on above: Fasting Glucose resu lt from 100 to 125 mg/dL suggests IMPAIRED HOMEOSTASIS per A.D.A. criteria. Neutrophils (Bld) [#/Vol] 5.6 10*3/uL 2.0-7.7 [facility] Work Phone: Neutrophils/100 WBC (Bld) 60.2 % 47-70 [facility] Work Phone: [phone] Potassium [Moles/Vol] 3.4 mmol/L 3.5-5.1 [facility] Work Phone: Sodium [Moles/Vol] 139 mmol/L 136-145 [facility] Work Phone: WBC (Bld) [#/Vol] 9.3 10*3/uL 4.4-11.0 [facility] Work Phone: Blood erythrocytes count (nu mber/volume)on 12-05-2021 RBC (Bld) [#/Vol] 4.49 10*6/uL 4.6-6.2 [facility] Work Phone: Blood hemoglobin measurement (mass/volume)on 12-05-2021 Hemoglobin (Bld) [Mass/Vol] 12.1 g/dL 13.0-16.5 [facility] Work Phone: Blood lymphocytes/100 leukoc yteson 12-05-2021 Lymphocytes/100 WBC (Bld) 32.0 % 19-41 [facility] Work Phone: Blood monocytes/100 leukocyt eson 12-05-2021 Monocytes/100 WBC (Bld) 4.7 % 0-10 [facility] Work Phone: Blood platelet mean volumeon 12-05-2021 Platelet mean volume (Bld) [Entitic vol] 10.8 fL 6.2-12.0 [facility] Work Phone: Determination of erythrocyte mean corpuscular volume (MCV)on 12-05-2021 MCV (RBC) [Entitic vol] 84.9 fL 80-94 [facility] Work Phone: [phone] Hematocrit Auto (Bld) [Volum e fraction]on 12-05-2021 Hematocrit (Bld) [Volume fraction] 38.1 % 40-54 [facility] Work Phone: INR in Blood by Coagulation assayon 12-05-2021 INR Coag (Bld) [Relative time] 1.8 {INR} [facility] Work Phone: Laboratory - Chemistry and C hemistry - challengeon 12-05-2021 CO2 [Moles/Vol] 29.0 mmol/L 21.0-32.0 [facility] Work Phone: Urea nitrogen/Creatinine [Mass ratio] 25.4 mg/mg 10-20 [facility] Work Phone: Laboratory - Coagulationon 0 12-05-2021 PT Coag (PPP) [Time] 20.5 s 11.7-14.9 [facility] Work Phone: Laboratory - Hematology and Cell countson 12-05-2021 Erythrocyte distribution width (RBC) [Entitic vol] 48.5 fL 35.1-43.9 [facility] Work Phone: Erythrocyte distribution width (RBC) [Ratio] 15.7 % 11.6-14.6 [facility] Work Phone: Immature granulocytes/100 WBC (Bld) 0.200 % 0.0-0.9 [facility] Work Phone: Comment on above: IG% - Immature Granu locytes (promyelocytes, myelocytes and metamyelocytes) > 1% indicates that a LEFT SHIFT is Present. MCH (RBC) [Entitic mass] 26.9 pg 27.0-32.0 [facility] Work Phone: Nucleated RBC/100 WBC (Bld) [Ratio] 0 % 0-5 [facility] Work Phone: MCHC Auto (RBC) [Mass/Vol]on 12-05-2021 MCHC (RBC) [Mass/Vol] 31.8 g/dL 32-36 [facility] Work Phone: No Panel Informationon 12-05 Estimated GFR (MDRD) Amer 133 mL/min >60 [facility] Work Phone: Comment on above: GFR Calc Estimated GFR (MDRD) Non-Af Amer 110 mL/min >60 [facility] Work Phone: Comment on above: Non- GFR Calc Platelets bldon 12-05-2021 Platelets (Bld) [#/Vol] 363 10*3/uL 150-450 [facility] Work Phone: Serum or plasma calcium oral urement (mass/volume)on 12-05-2021 Calcium [Mass/Vol] 9.4 mg/dL 8.5-10.1 [facility] Work Phone: Serum or plasma creatinine m easurement (mass/volume)on 12-05-2021 Creatinine [Mass/Vol] 0.75 mg/dL 0.70-1.30 [facility] Work Phone: Comment on above: The validity of the calculated GFR & GFRAA in patients over 70 years has not been determined. Clinical correlation is essential. Serum or plasma urea nitroge n measurement (mass/volume)on 12-05-2021 Urea nitrogen [Mass/Vol] 19 mg/dL 7-18 [facility] Work Phone: Thin prep Papanicolaou smear with manual screeningon 12-05-2021 Thin prep Papanicolaou smear with manual screening 4 5-15 [facility] Work Phone: Basophil percentageon 2021 Basophil percentage 0 SEEN /hpf 0-5 [facility] Work Phone: Chloride [Moles/Vol] 104 mmol/L 98-107 [facility] Work Phone: Glucose [Mass/Vol] 90 mg/dL 74-106 [facility] Work Phone: Potassium [Moles/Vol] 3.7 mmol/L 3.5-5.1 [facility] Work Phone: Comment on above: Slight Hemolysis, Re sult may be falsely increased. Sodium [Moles/Vol] 138 mmol/L 136-145 [facility] Work Phone: WBC (Bld) [#/Vol] 10.7 10*3/uL 4.4-11.0 [facility] Work Phone: Bilirubin Test strip Ql (U)o n 12-01-2021 Bilirubin Ql (U) Negative Negative [facility] Work Phone: Blood erythrocytes count (nu mber/volume)on 12-01-2021 RBC (Bld) [#/Vol] 4.33 10*6/uL 4.6-6.2 [facility] Work Phone: Blood hemoglobin measurement (mass/volume)on 12-01-2021 Hemoglobin (Bld) [Mass/Vol] 11.6 g/dL 13.0-16.5 [facility] Work Phone: Blood platelet mean volumeon 12-01-2021 Platelet mean volume (Bld) [Entitic vol] 11.2 fL 6.2-12.0 [facility] Work Phone: Determination of erythrocyte mean corpuscular volume (MCV)on 12-01-2021 MCV (RBC) [Entitic vol] 85.2 fL 80-94 [facility] Work Phone: Hematocrit Auto (Bld) [Volum e fraction]on 12-01-2021 Hematocrit (Bld) [Volume fraction] 36.9 % 40-54 [facility] Work Phone: Ketones Test strip Ql (U)on 12-01-2021 Ketones Ql (U) Negative Negative [facility] Work Phone: Laboratory - Chemistry and C hemistry - challengeon 12-01-2021 CO2 [Moles/Vol] 27.0 mmol/L 21.0-32.0 [facility] Work Phone: Urea nitrogen/Creatinine [Mass ratio] 24.0 mg/mg 10-20 [facility] Work Phone: Laboratory - Coagulationon 0 12-01-2021 INR Coag (Bld) [Relative time] 1.6 {INR} [facility] Work Phone: Comment on above: Critical Value > 4.0 Laboratory - Hematology and Cell countson 12-01-2021 Erythrocyte distribution width (RBC) [Entitic vol] 47.9 fL 35.1-43.9 [facility] Work Phone: Erythrocyte distribution width (RBC) [Ratio] 15.5 % 11.6-14.6 [facility] Work Phone: MCH (RBC) [Entitic mass] 26.8 pg 27.0-32.0 [facility] Work Phone: MCHC Auto (RBC) [Mass/Vol]on 12-01-2021 MCHC (RBC) [Mass/Vol] 31.4 g/dL 32-36 [facility] Work Phone: Mucus LM Ql (Urine sed)on Mucus Ql (Urine sed) 0 SEEN /hpf [facility] Work Phone: Nitrite Test strip Ql (U)on 12-01-2021 Nitrite Ql (U) Negative Negative [facility] Work Phone: No Panel Informationon 12-01 Estimated GFR (MDRD) Amer 133 mL/min >60 [facility] Work Phone: Comment on above: GFR Calc Estimated GFR (MDRD) Non-Af Amer 110 mL/min >60 [facility] Work Phone: Comment on above: Non- GFR Calc Platelets bldon 12-01-2021 Platelets (Bld) [#/Vol] 336 10*3/uL 150-450 [facility] Work Phone: Protein Test strip Ql (U)on 12-01-2021 Protein Ql (U) 30 mg/dl Negative [facility] Work Phone: Serum or plasma calcium oral urement (mass/volume)on 12-01-2021 Calcium [Mass/Vol] 9.4 mg/dL 8.5-10.1 [facility] Work Phone: Serum or plasma creatinine m easurement (mass/volume)on 12-01-2021 Creatinine [Mass/Vol] 0.75 mg/dL 0.70-1.30 [facility] Work Phone: Comment on above: The validity of the calculated GFR & GFRAA in patients over 70 years has not been determined. Clinical correlation is essential. Serum or plasma urea nitroge n measurement (mass/volume)on 12-01-2021 Urea nitrogen [Mass/Vol] 18 mg/dL 7-18 [facility] Work Phone: Squamous epithelial cells de tection in urine sediment by light microscopyon 12-01-2021 Epithelial cells.squamous LM Ql (Urine sed) 0-5 SEEN /hpf 0-5 [facility] Work Phone: Thin prep Papanicolaou smear with manual screeningon 12-01-2021 Thin prep Papanicolaou smear with manual screening 7 5-15 [facility] Work Phone: Urine blood detectionon 11-05 RBC Ql (U) Negative Negative [facility] Work Phone: RBC Ql (U) 0 SEEN /hpf 0-5 [facility] Work Phone: Urine clarityon 12-01-2021 Clarity (U) Clear Clear [facility] Work Phone: Urine color determinationon 12-01-2021 Color (U) Yellow Yellow [facility] Work Phone: Urine glucose detectionon Glucose Ql (U) 50 mg/dl Normal [facility] Work Phone: Urine leukocyte esterase det ection by dipstickon 12-01-2021 Leukocyte esterase Test strip Ql (U) Negative Negative [facility] Work Phone: Urine pHon 12-01-2021 pH (U) 6.0 [pH] 5.0 - 8.0 [facility] Work Phone: Urine sediment bacteria coun t by microscopy (number/high power field)on 12-01-2021 Bacteria LM.HPF (Urine sed) [#/Area] 0 /[HPF] None Seen [facility] Work Phone: Urine sediment yeast count b y microscopy (number/high powered field)on 12-01-2021 Yeast LM.HPF (Urine sed) [#/Area] 2 /[HPF] None Seen [facility] Work Phone: Urine specific gravity measu rementon 12-01-2021 Specific gravity (U) [Rel density] 1.010 1.002-1.030 [facility] Work Phone: Urobilinogen Auto test strip Ql (U)on 12-01-2021 Urobilinogen Ql (U) Normal mg/dl Normal [facility] Work Phone: Whole blood prothrombin time on 12-01-2021 PT Coag (Bld) [Time] 19.8 s 11.7-14.9 [facility] Work Phone: Laboratory - Coagulationon 0 11-28-2021 INR Coag (Bld) [Relative time] 1.6 {INR} [facility] Work Phone: Comment on above: Critical Value > 4.0 Whole blood prothrombin time on 11-28-2021 PT Coag (Bld) [Time] 18.8 s 11.7-14.9 [facility] Work Phone: INR in Blood by Coagulation assayon 11-23-2021 INR Coag (Bld) [Relative time] 2.7 {INR} [facility] Work Phone: Laboratory - Coagulationon 0 11-23-2021 PT Coag (PPP) [Time] 28.0 s 11.7-14.9 [facility] Work Phone: Laboratory - Coagulationon 0 11-22-2021 INR Coag (Bld) [Relative time] 3.8 {INR} [facility] Work Phone: Comment on above: Critical Value > 4.0 Whole blood prothrombin time on 11-22-2021 PT Coag (Bld) [Time] 42.8 s 11.7-14.9 [facility] Work Phone: INR in Blood by Coagulation assayon 11-21-2021 INR Coag (Bld) [Relative time] 3.9 {INR} [facility] Work Phone: Laboratory - Coagulationon 0 11-21-2021 PT Coag (PPP) [Time] 37.7 s 11.7-14.9 [facility] Work Phone: Whole blood prothrombin time on 11-21-2021 PT Coag (Bld) [Time] 45.5 s 11.7-14.9 [facility] Work Phone: INR in Blood by Coagulation assayon 11-14-2021 INR Coag (Bld) [Relative time] 3.1 {INR} [facility] Work Phone: Laboratory - Coagulationon 0 11-14-2021 PT Coag (PPP) [Time] 31.4 s 11.7-14.9 [facility] Work Phone: Laboratory - Coagulationon 0 11-08-2021 INR Coag (Bld) [Relative time] 2.5 {INR} [facility] Work Phone: Comment on above: Critical Value > 4.0 Whole blood prothrombin time on 11-08-2021 PT Coag (Bld) [Time] 29.0 s 11.7-14.9 [facility] Work Phone: Basophil percentageon 2021 Chloride [Moles/Vol] 106 mmol/L 98-107 [facility] Work Phone: Glucose [Mass/Vol] 100 mg/dL 74-106 [facility] Work Phone: Comment on above: Fasting Glucose resu lt from 100 to 125 mg/dL suggests IMPAIRED HOMEOSTASIS per A.D.A. criteria. Potassium [Moles/Vol] 3.7 mmol/L 3.5-5.1 [facility] Work Phone: Sodium [Moles/Vol] 140 mmol/L 136-145 [facility] Work Phone: WBC (Bld) [#/Vol] 8.8 10*3/uL 4.4-11.0 [facility] Work Phone: Blood erythrocytes count (nu mber/volume)on 11-04-2021 RBC (Bld) [#/Vol] 4.05 10*6/uL 4.6-6.2 [facility] Work Phone: Blood hemoglobin measurement (mass/volume)on 11-04-2021 Hemoglobin (Bld) [Mass/Vol] 11.1 g/dL 13.0-16.5 [facility] Work Phone: Blood platelet mean volumeon 11-04-2021 Platelet mean volume (Bld) [Entitic vol] 10.8 fL 6.2-12.0 [facility] Work Phone: Determination of erythrocyte mean corpuscular volume (MCV)on 11-04-2021 MCV (RBC) [Entitic vol] 86.9 fL 80-94 [facility] Work Phone: Hematocrit Auto (Bld) [Volum e fraction]on 11-04-2021 Hematocrit (Bld) [Volume fraction] 35.2 % 40-54 [facility] Work Phone: INR in Blood by Coagulation assayon 11-04-2021 INR Coag (Bld) [Relative time] 1.8 {INR} [facility] Work Phone: Laboratory - Chemistry and C hemistry - challengeon 11-04-2021 CO2 [Moles/Vol] 26.0 mmol/L 21.0-32.0 [facility] Work Phone: Urea nitrogen/Creatinine [Mass ratio] 18.3 mg/mg 10-20 [facility] Work Phone: Laboratory - Coagulationon 0 11-04-2021 PT Coag (PPP) [Time] 20.4 s 11.7-14.9 [facility] Work Phone: Laboratory - Hematology and Cell countson 11-04-2021 Erythrocyte distribution width (RBC) [Entitic vol] 48.1 fL 35.1-43.9 [facility] Work Phone: Erythrocyte distribution width (RBC) [Ratio] 15.0 % 11.6-14.6 [facility] Work Phone: MCH (RBC) [Entitic mass] 27.4 pg 27.0-32.0 [facility] Work Phone: MCHC Auto (RBC) [Mass/Vol]on 11-04-2021 MCHC (RBC) [Mass/Vol] 31.5 g/dL 32-36 [facility] Work Phone: No Panel Informationon 11-04 D-Dimer Quantitative (PE/DVT) 0.56 FEU/ug/m 0.27-0.49 [facility] Work Phone: Comment on above: D-Dimer ELEVATED (>0 .49): Additional studies and clinicalassessments are indicated to conclude diagnosis of:Deep Vein Thrombosis (DVT) or Pulmonary Embolism (PE) Estimated GFR (MDRD) Amer 155 mL/min >60 [facility] Work Phone: Comment on above: GFR Calc Estimated GFR (MDRD) Non-Af Amer 128 mL/min >60 [facility] Work Phone: Comment on above: Non- GFR Calc Troponin I High Sensitivity 11 pg/mL 3.0-78.0 [facility] Work Phone: Comment on above: Please Note: New Fadumo t Units and Gender Specific Reference Ranges. For more information see Policy Stat Procedure [place] High Sensitivity Troponin (TNIH) and attachments. Platelets bldon 11-04-2021 Platelets (Bld) [#/Vol] 364 10*3/uL 150-450 [facility] Work Phone: Serum or plasma C reactive p rotein measurement (mass/volume)on 11-04-2021 CRP [Mass/Vol] 31.90 mg/L 0.0-3.0 [facility] Work Phone: Comment on above: C-Reactive Protein ( CRP) provides useful information for thediagnosis, therapy and monitoring of inflammatory processesand associated diseases. For the evaluation of Relative Riskfor Cardiovascular Disease, a High Sensitivity CRP (HSCRP)should be ordered. Serum or plasma calcium oral urement (mass/volume)on 11-04-2021 Calcium [Mass/Vol] 9.1 mg/dL 8.5-10.1 [facility] Work Phone: Serum or plasma creatinine m easurement (mass/volume)on 11-04-2021 Creatinine [Mass/Vol] 0.66 mg/dL 0.70-1.30 [facility] Work Phone: Comment on above: The validity of the calculated GFR & GFRAA in patients over 70 years has not been determined. Clinical correlation is essential. Serum or plasma urea nitroge n measurement (mass/volume)on 11-04-2021 Urea nitrogen [Mass/Vol] 12 mg/dL 7-18 [facility] Work Phone: Thin prep Papanicolaou smear with manual screeningon 11-04-2021 Thin prep Papanicolaou smear with manual screening 8 5-15 [facility] Work Phone: Complete Urinalysison 2021 Appearance (U) Clear Normal Clear [facility] Comment on above: Result Comment: . Performed By: #### C UA2 ####[id number] [place], [place] Bacteria Moderate Abnormal Negative [facility] Comment on above: Result Comment: . Performed By: #### C UA2 ####[employer] [id number] [place], [place] Bilirubin,Urine Negative Normal Negative [facility] [facility] Comment on above: Result Comment: . Performed By: #### C UA2 ####[employer] [id number] [place], [place] Cast, Hyaline Negative Normal Negative [facility] [employer] Comment on above: Result Comment: . Performed By: #### C UA2 ####[employer] [id number] [place], [place] Color (U) Yellow Normal Lt. Yellow [facility] Comment on above: Result Comment: . Performed By: #### C UA2 ####[employer] [id number] [place], [place] Glucose Ql (U) Normal Normal Normal (<70) [facility] Comment on above: Result Comment: . Performed By: #### C UA2 ####[address] [place], [place] Ketone,Urine Negative Normal Negative [facility] Comment on above: Result Comment: . Performed By: #### C UA2 ####[address] [place], [place] Leukocytes,Urine Negative Normal Negative [facility] Comment on above: Result Comment: . Performed By: #### C UA2 ####[address] Mucous Threads Few Normal Negative [facility] Comment on above: Result Comment: . Performed By: #### C UA2 ####[address] Nitrites,Urine Negative Normal Negative [facility] Comment on above: Result Comment: . Performed By: #### C UA2 ####[address] Occult Blood,Urine 0.1 mg/dL Abnormal Negative [facility] Comment on above: Result Comment: . Performed By: #### C UA2 ####[address] pH,Urine 5.5 Normal 5.0-8.0 [facility] Comment on above: Result Comment: . Performed By: #### C UA2 ####[address] Protein (U) [Mass/Vol] 10 mg/dL Abnormal Negative [facility] Comment on above: Result Comment: . Performed By: #### C UA2 ####[address] RBC, Urine 26 - 50 Abnormal 0-2 [facility] Comment on above: Result Comment: . Performed By: #### C UA2 ####[address] Specific [place],Urine 1.023 Normal 1.005 - 1.030 [facility] Comment on above: Result Comment: . Performed By: #### C UA2 ####[address] [place], [place] Squamous Epithelial Negative Normal 3-5 [facility] Comment on above: Result Comment: . Performed By: #### C UA2 ####[address] [place], [place] Urobilinogen,Urine Normal Normal Normal (0-1) [facility] Comment on above: Result Comment: . Performed By: #### C UA2 ####[address] [place], [place] WBC, Urine 0 - 2 Normal 0-5 [facility] Comment on above: Result Comment: . Performed By: #### C UA2 ####[address] Urinalysison 11-01-2021 Appearance (U) Clear Clear NA [facility] Comment on above: . Bacteria, UA Moderate Abnormal Negative /[HPF] [facility] Comment on above: . Bilirubin Urine Negative Negative mg/dL [facility] Comment on above: . Color (U) Yellow Lt. Yellow NA [facility] Comment on above: . Glucose, Ur Normal Normal (<70) mg/dL [facility] Comment on above: . Hyaline Casts, UA Negative Negative /[LPF] [facility] Comment on above: . Interpretation and review of laboratory results Abnormal [facility] Ketones Ql (U) Negative Negative mg/dL [facility] Comment on above: . LEUKOCYTES, UA Negative Negative Elaine/uL [facility] Comment on above: . Mucous Threads Few Negative /[LPF] [facility] Comment on above: . Nitrite, Urine Negative Negative NA [facility] Comment on above: . Occult Blood,Urine 0.1 mg/dL Abnormal Negative [facility] Comment on above: . pH (U) 5.5 [pH] [facility] Comment on above: . Protein (U) [Mass/Vol] 10 mg/dL Abnormal Negative [facility] Comment on above: . RBC, UA 26-50 Abnormal 0 - 2 /[HPF] [facility] Comment on above: . Specific [place], Urine 1.023 [facility] Comment on above: . Squam Epithel, UA Negative 3 - 5 /[HPF] [facility] Comment on above: . Urobilinogen, Urine Normal Normal ( 0-1) mg/dL [facility] Comment on above: . WBC, UA 0-2 0 - 5 /[HPF] [facility] Comment on above: . Test Performed by [facility], [address] [place] [id number] [facility] Basic Metabolic Panelon 06-2 Anion gap [Moles/Vol] 6 mmol/L Normal 3-13 [facility] Comment on above: Performed By: #### P T/AP, TROPN, BMP3, HEMDF #### [address] Calcium [Mass/Vol] 9.1 mg/dL Normal 8.4-10.4 [facility] Comment on above: Performed By: #### P T/AP, TROPN, BMP3, HEMDF #### [address] CO2 [Moles/Vol] 28 mmol/L Normal 22-30 [facility] Comment on above: Performed By: #### P T/AP, TROPN, BMP3, HEMDF #### [address] Glucose [Mass/Vol] 120 mg/dL High 70-100 [facility] Comment on above: Performed By: #### P T/AP, TROPN, BMP3, HEMDF #### [address] Urea nitrogen [Mass/Vol] 17 mg/dL Normal 7-17 [facility] Comment on above: Performed By: #### P T/AP, TROPN, BMP3, HEMDF #### [address] Creatinine [Mass/Vol] 0.65 mg/dL Normal 0.52-1.25 [facility] Comment on above: Performed By: #### P T/AP, TROPN, BMP3, HEMDF #### [address] eGFR OTHER > 90.0 Normal >60 [facility] Comment on above: Result Comment: KDIG O guidelines provide the following GFR categories: Stage GFR(ml/min/1.73 m2) Terms G1 >=90 Normal or high G2 60-89 Mildly decreased* G3a 45-59 Mildly to moderately decreased G3b 30-44 Moderately to severely decreased G4 15-29 Severely decreased G5 <15 Kidney failure *Relative to young adult level. In the absence of evidence of kidney damage, neither GFR category G1 nor G2 fulfill the criteria for CKD. The CKD-EPI equation is validated in individuals 18 years of age and older. Currently the best equation for estimating glomerular filtration rate (GFR) from serum creatinine in children is the Bedside Medina equation. It is less accurate in patients with extremes of muscle mass, restriction of dietary protein, ingestion of creatine, extra-renal metabolism of creatinine, or treatment with medications that affect renal tubular creatinine secretion. Performed By: #### P T/AP, TROPN, BMP3, HEMDF #### [address] GFR/1.73 sq M.predicted among blacks MDRD (S/P/Bld) [Vol rate/Area] mL/min/{1.73_m2} Normal >60 [facility] Comment on above: Performed By: #### P T/AP, TROPN, BMP3, HEMDF #### [address] Potassium [Moles/Vol] 3.8 mmol/L Normal 3.5-5.1 [facility] Comment on above: Performed By: #### P T/AP, TROPN, BMP3, HEMDF #### [address] Chloride [Moles/Vol] 101 mmol/L Normal 98-107 [facility] Comment on above: Performed By: #### P T/AP, TROPN, BMP3, HEMDF #### [address] Sodium [Moles/Vol] 134 mmol/L Low 135-145 [facility] Comment on above: Performed By: #### P T/AP, TROPN, BMP3, HEMDF #### [address] [id number] Anion gap [Moles/Vol] 6 mmol/L 3 - 13 mmol/L [facility] Calcium [Mass/Vol] 9.1 mg/dL 8.4 - 10. 4 mg/dL [facility] Chloride [Moles/Vol] 101 mmol/L 98 - 10 7 mmol/L [facility] CO2 [Moles/Vol] 28 mmol/L 22 - 30 mmol/L [facility] Creatinine [Mass/Vol] 0.65 mg/dL 0.52 - 1.25 mg/dL [facility] EGFR IF NonAfrican Tunisian >90.0 >60 mL/min [facility] Comment on above: KDIGO guidelines pro vide the following GFR categories: Stage GFR(ml/min/1.73 m2) Terms G1 >=90 Normal or high G2 60-89 Mildly decreased* G3a 45-59 Mildly to moderately decreased G3b 30-44 Moderately to severely decreased G4 15-29 Severely decreased G5 <15 Kidney failure *Relative to young adult level. In the absence of evidence of kidney damage, neither GFR category G1 nor G2 fulfill the criteria for CKD. The CKD-EPI equation is validated in individuals 18 years of age and older. Currently the best equation for estimating glomerular filtration rate (GFR) from serum creatinine in children is the Bedside Medina equation. It is less accurate in patients with extremes of muscle mass, restriction of dietary protein, ingestion of creatine, extra-renal metabolism of creatinine, or treatment with medications that affect renal tubular creatinine secretion. GFR/1.73 sq M.predicted among blacks MDRD (S/P/Bld) [Vol rate/Area] mL/min/{1.73_m2} >60 mL/min [facility] Glucose [Mass/Vol] 120 mg/dL High 70 - 100 mg/dL [facility] Interpretation and review of laboratory results Abnormal [facility] Potassium [Moles/Vol] 3.8 mmol/L 3.5 - 5.1 mmol/L [facility] Sodium [Moles/Vol] 134 mmol/L Low 135 - 145 mmol/L [facility] Urea nitrogen (BldV) [Mass/Vol] 17 mg/dL 7 - 17 mg/dL [facility] Test Performed by [facility], [address] [place] [id number] [facility] CBC with Auto Differentialon 10-31-2021 Absolute Baso # 0.1 10*3/uL 0.0 - 0.2 10*3/uL [facility] Absolute Neut # 6.0 10*3/uL 1.8 - 7.0 10*3/uL [facility] Basophils/100 WBC (Bld) 1.1 % 0.0 - 2.0 % [facility] Eosinophils (Bld) [#/Vol] 0.2 10*3/uL 0.0 - 0.5 10*3/uL [facility] Eosinophils/100 WBC (Bld) 2.3 % 1.0 - 6.0 % [facility] Granulocytes/100 WBC (Bld) 61.8 % 40.0 - 80.0 % [facility] Hematocrit (Bld) [Volume fraction] 35.0 % Low 40.0 - 52.0 % [facility] Hemoglobin (Bld) [Mass/Vol] 11.3 g/dL Low 13.0 - 18.0 g/dL [facility] Interpretation and review of laboratory results Abnormal [facility] Lymphocytes (Bld) [#/Vol] 2.8 10*3/uL 1.0 - 4.3 10*3/uL [facility] Lymphocytes/100 WBC (Bld) 29.2 % 20.0 - 40.0 % [facility] MCH (RBC) [Entitic mass] 27.5 pg 26.0 - 34.0 pg [facility] MCHC (RBC) [Mass/Vol] 32.3 % 32.0 - 36.0 % [facility] MCV (RBC) [Entitic vol] 85.0 fL 80.0 - 98.0 fL [facility] Monocytes (Bld) [#/Vol] 0.5 10*3/uL 0.0 - 0.8 10*3/uL [facility] Monocytes/100 WBC (Bld) 5.6 % 2.0 - 10.0 % [facility] Platelet distribution width (Bld) [Ratio] 17.2 % High 11.5 - 14.5 % [facility] Platelet mean volume (Bld) [Entitic vol] 8.6 fL 7.4 - 12.4 fL [facility] Comment on above: MPV is a calculated measurement using platelet volume ratio. 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 COMPARISON: October,. FINDINGS: Left IJ central venous catheter again noted. Cardiac and mediastinal silhouette within normal limits. Lungs are hypoinflated. No significant vascular congestion. No focal consolidation or apparent pneumothorax. Degenerative change again noted in the thoracic spine. IMPRESSION: 1. Hypoinflation. 2. No other acute findings. ABDOMEN SINGLE VIEW CLINICAL INDICATION: AMS. TECHNIQUE: KUB view(s) of the abdomen. COMPARISON: None. FINDINGS: No significant bowel dilatation. No apparent pneumoperitoneum, although evaluation for this entity is limited due to supine positioning. Surgical clips project over the right upper quadrant and IVC filter noted. No abnormal calcifications. Diagnostic Radiology Report Degenerative change in the thoracic and lumbar spine and bilateral hip joints. IMPRESSION: 1. Nonobstructive bowel gas pattern. Report Dictated on Workstation: [id number] Final Dictated: 10/31/2021 8:49 pm Dictating Physician: MD REYNOSO WENDELL Signed Date and Time: 10/31/2021 8:52 pm Signed by: MD REYNOSO WENDELL Transcribed Date and Time: 10/31/2021 8:49 Normal [facility] CR Chest Portableon 11-01-19 22 CR Chest Portable Patient Name: ANDREW SIFUENTES Diagnostic Radiology ACCESSION EXAM DATE/TIME PROCEDURE ORDERING PROVIDER [id number] 10/31/2021 20:36 EDT CR Chest Portable [id number] -DESEAN DURANY CPT code 03817 Reason For Exam (CR Chest Portable) AMS Report CHEST PORTABLE CLINICAL INDICATION: AMS TECHNIQUE: Portable chest x-ray(s). COMPARISON: October,. FINDINGS: Left IJ central venous catheter again noted. Cardiac and mediastinal silhouette within normal limits. Lungs are hypoinflated. No significant vascular congestion. No focal consolidation or apparent pneumothorax. Degenerative change again noted in the thoracic spine. IMPRESSION: 1. Hypoinflation. 2. No other acute findings. ABDOMEN SINGLE VIEW CLINICAL INDICATION: AMS. TECHNIQUE: KUB view(s) of the abdomen. COMPARISON: None. FINDINGS: No significant bowel dilatation. No apparent pneumoperitoneum, although evaluation for this entity is limited due to supine positioning. Surgical clips project over the right upper quadrant and IVC filter noted. No abnormal calcifications. Diagnostic Radiology Report Degenerative change in the thoracic and lumbar spine and bilateral hip joints. IMPRESSION: 1. Nonobstructive bowel gas pattern. 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 Coronal, sagittal, and axial images were reconstructed. Ventriculostomy shunts extending posteriorly, bilaterally along the lateral ventricles. This is discontinuous, incomplete on the right consistent with prior abandoned shunt. This appears continuous on the left and terminates just right of midline unchanged. There is no ventricular enlargement, hydrocephalus. There is moderate subcortical and periventricular white matter hypodensity which is nonspecific and may represent chronic small vessel ischemic disease in a patient of this age. There is more remote cortical ischemia in the right parietal and left anterior frontal regions unchanged from comparison. Buitrago white differentiation is well preserved. There is no evidence of gross mass, hemorrhage or edema. No areas of mass-effect or infarct are seen. Sinuses appear well pneumatized. Atherosclerotic calcifications carotid siphons an right vertebral artery. Impression: Mild diffuse cerebral volume loss and moderate nonspecific white matter changes likely representing chronic small vessel ischemic disease in a patient of this age. Ventriculostomy shunts, incompletely abandoned on the right and continuous on the left unchanged. No evidence of acute intracranial process or significant interval change from comparison. No hydrocephalus. Computed Tomography Report Report Dictated on --- Final --- Dictated: 10/31/2021 8:54 pm Dictating Physician: MD WONG ANTHONY J Signed Date and Time: 10/31/2021 8:58 pm Signed by: MD WONG ANTHONY J Transcribed Date and Time: 10/31/2021 8:54 [facility] Alan Wong MD - 10/31/2021 [id number] Computed Tomography ACCESSION EXAM DATE/TIME PROCEDURE ORDERING PROVIDER [id number] 10/31/2021 20:[address] Head or Brain w/o [id number] -MYRON DURAN Contrast CPT code 97875 Reason For Exam (CT Head or Brain w/o Contrast) AMS, previous SUPERVISOR POST WAVE shunt Report Examination: CT Head Clinical Information: AMS, 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 Coronal, sagittal, and axial images were reconstructed. Ventriculostomy shunts extending posteriorly, bilaterally along the lateral ventricles. This is discontinuous, incomplete on the right consistent with prior abandoned shunt. This appears continuous on the left and terminates just right of midline unchanged. There is no ventricular enlargement, hydrocephalus. There is moderate subcortical and periventricular white matter hypodensity which is nonspecific and may represent chronic small vessel ischemic disease in a patient of this age. There is more remote cortical ischemia in the right parietal and left anterior frontal regions unchanged from comparison. [place] white differentiation is well preserved. There is no evidence of gross mass, hemorrhage or edema. No areas of mass-effect or infarct are seen. Sinuses appear well pneumatized. Atherosclerotic calcifications carotid siphons an right vertebral artery. Impression: Mild diffuse cerebral volume loss and moderate nonspecific white matter changes likely representing chronic small vessel ischemic disease in a patient of this age. Ventriculostomy shunts, incompletely abandoned on the right and continuous on the left unchanged. No evidence of acute intracranial process or significant interval change from comparison. No hydrocephalus. Computed Tomography Report Report Dictated on --- Final --- Dictated: 10/31/2021 8:54 pm Dictating Physician: MD WONG ANTHONY J Signed Date and Time: 10/31/2021 8:58 pm Signed by: MD WONG ANTHONY J Transcribed Date and Time: 10/31/2021 8:54 [facility] Work Phone: CT HEAD WO CONTRASTOrdered B y: Alan Wong on 10-31-2021 [facility] Work Phone: CT Head or Brain w/o Contras ton 10-31-2021 CT Head or Brain w/o Contrast Patient [facility]: [facility] [id number] Computed Tomography ACCESSION EXAM DATE/TIME PROCEDURE ORDERING PROVIDER [id number] 10/31/2021 20:[address] Head or Brain w/o [id number] -MYRON DURAN Contrast CPT code 43142 Reason For Exam (CT Head or Brain w/o Contrast) AMS, previous SUPERVISOR POST WAVE shunt Report Examination: CT Head Clinical Information: AMS, 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 Coronal, sagittal, and axial images were reconstructed. Ventriculostomy shunts extending posteriorly, bilaterally along the lateral ventricles. This is discontinuous, incomplete on the right consistent with prior abandoned shunt. This appears continuous on the left and terminates just right of midline unchanged. There is no ventricular enlargement, hydrocephalus. There is moderate subcortical and periventricular white matter hypodensity which is nonspecific and may represent chronic small vessel ischemic disease in a patient of this age. There is more remote cortical ischemia in the right parietal and left anterior frontal regions unchanged from comparison. [place] white differentiation is well preserved. There is no evidence of gross mass, hemorrhage or edema. No areas of mass-effect or infarct are seen. Sinuses appear well pneumatized. Atherosclerotic calcifications carotid siphons an right vertebral artery. Impression: Mild diffuse cerebral volume loss and moderate nonspecific white matter changes likely representing chronic small vessel ischemic disease in a patient of this age. Ventriculostomy shunts, incompletely abandoned on the right and continuous on the left unchanged. No evidence of acute intracranial process or significant interval change from comparison. No hydrocephalus. Computed Tomography Report Report Dictated on Final Dictated: 10/31/2021 8:54 pm Dictating Physician: MD WONG ANTHONY J Signed Date and Time: 10/31/2021 8:58 pm Signed by: MD WONG ANTHONY J Transcribed Date and Time: 10/31/2021 8:54 [facility] ED Provider Noteon ED Provider Note Emergency Department Encounter [facility] EMERGENCY DEPT Patient: Andrew Sifuentes : 1950 Date of Evaluation: 10/31/2021 ED Supervising Physician: Dante Kim MD I independently examined and evaluated Andrew Sifuentes. In brief, Andrew Sifuentes is a 71 y.o. male that presents to the emergency department with reports of AMS from nursing facility. Pt himself has no complaints. He appears fatigued, lungs sound rhonchorous, but no respiratory distress and pt is cooperative and calm. According to the detention, he has been more lethargic than normal, but apparently to the family he is at his mental status baseline in terms of orientation. Labs are unremarkable and CT is negative. Will f/u straight cath urine and likely dc back to facility. All EKG interpretations are in epiphany. All diagnostic, treatment, and disposition decisions were made by myself in conjunction with the Resident. I also supervised hines portions of any procedures performed by the Resident. For all further details of the patient's emergency department visit, please see their documentation. (Please note that portions of this note may have been completed with a voice recognition program. Efforts were made to edit the dictations but occasionally words are mis-transcribed.) Dante Kim MD [employer] Dante Kim MD 10/31/21 2211 [facility] ED Provider Note [facility] EMERGENCY DEPT EMERGENCY DEPARTMENT ENCOUNTER Pt Name: Andrew Sifuentes Birthdate 1950 Date of evaluation: 10/31/2021 Provider: Myron Duran MD CHIEF COMPLAINT Chief Complaint Patient presents with ? Altered Mental Status Pt presents to ED via [facility] for complaint listed. Pt is from [place] [facility]. Pt's LKW was 1000 hours today. Per EMS, pt had a - [place]. Pt denies CP, SOB, and N/V. Pt seems slow to respond, slightly confused at this time. HISTORY OF PRESENT ILLNESS (Location/Symptom, Timing/Onset, Context/Setting, Quality, Duration, Modifying Factors, Severity) Note limiting factors. I wore a kn95 mask for the entirety of this encounter. HPI Andrew Sifuentes is a 71 y.o. male who presents to the emergency department with concern of changes in mental status ongoing at patient's nursing facility. Patient denies any concerns but at this point time is alert and oriented x2. Unsure what his baseline is at this point time but denying any chest pain, shortness of breath, nausea or vomiting. Does have some delay in answering questions but does answer appropriately otherwise. Is not sure where he is at right now or why he is here. Not having any fevers or chills. Called nursing facility and their concern was that since patient was released from the hospital recently that he has not been acting his normal self. Was recently admitted related to lower extremity DVTs that were occurring while on anticoagulation. Was also started on Keppra for seizures. Has been back to the nursing facility for approximately 2 days and her nursing facility noted since he was back family has noticed that he has been more lethargic in his answers and just not himself but unable to explain exactly why. Noticed that worsened today and was the reason he was sent to the emergency department for further evaluation. Does have a history of hydrocephalus with a SUPERVISOR POST WAVE shunt. 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 REVIEW OF SYSTEMS (2+ for level 4; 10+ for level 5) Review of Systems Constitutional: Negative for chills, diaphoresis, fatigue and fever. HENT: Negative for congestion, ear pain, postnasal drip, rhinorrhea, sneezing and sore throat. Eyes: Negative for pain and redness. Respiratory: Negative for cough, chest tightness and shortness of breath. Cardiovascular: Negative for chest pain and leg swelling. Gastrointestinal: Negative for abdominal pain, constipation, diarrhea, nausea and vomiting. Endocrine: Negative for polyuria. Genitourinary: Negative for dysuria, flank pain and hematuria. Musculoskeletal: Negative for arthralgias, back pain and neck pain. Skin: Negative for pallor and rash. Neurological: Negative for dizziness, weakness, numbness and headaches. Psychiatric/Behavioral: Positive for confusion. PAST MEDICAL HISTORY Past Medical History: Diagnosis Date ? ED (erectile dysfunction) ? Hemorrhoids ? Hydrocephalus, adult (HCC) ? Kidney stone ? Neuropathy ? SUPERVISOR POST WAVE (ventriculoperitoneal) shunt status SURGICAL HISTORY Past Surgical History: Procedure Laterality Date ? BRAIN SURGERY ? CHOLECYSTECTOMY ? COLONOSCOPY ? HERNIA REPAIR CURRENT MEDICATIONS Previous Medications BACLOFEN (LIORESAL) 10 MG TABLET TAKE 1 TABLET BY MOUTH 3 TIMES DAILY NEEDED FOR MUSCLE SPASMS BUMETANIDE (BUMEX) 2 MG TABLET TAKE 1 TABLET BY MOUTH DAILY ELASTIC BANDAGES & SUPPORTS (MEDICAL COMPRESSION STOCKINGS) MISC 1 each by Does not apply route daily as needed (swelling) GINSENG 100 MG CAPS Take 100 mg by mouth daily HANDICAP PLACARD MISC by Does not apply route Duration: 5 years, 2023 LEVETIRACETAM (KEPPRA) 750 MG TABLET Take 1 tablet by mouth 2 times daily POTASSIUM CHLORIDE (KLOR-CON M) 20 MEQ EXTENDED RELEASE TABLET TAKE 1 TABLET BY MOUTH DAILY WARFARIN (COUMADIN) 6 MG TABLET Take 1 tablet by mouth daily ALLERGIES Alcohol and Morphine FAMILY HISTORY Family History Problem Relation Age of Onset ? Cancer Mother ? Heart Disease Father SOCIAL HISTORY Social History Socioeconomic History ? Marital status: Spouse name: None ? Number of children: None ? Years of education: None ? Highest education level: None Occupational History ? None Tobacco Use ? Smoking status: Former Smoker Packs/day: 1.00 Years: 10.00 Pack years: 10.00 Types: Cigars ? Smokeless tobacco: Never Used Vaping Use ? Vaping Use: Never used Substance and Sexual Activity ? Alcohol use: No ? Drug use: No ? Sexual activity: Not Currently Other Topics Concern ? None Social History Narrative ? None Social Determinants of Health Financial Resource Strain: ? Difficulty of Paying Living Expenses: Not on file Food Insecurity: ? Worried About Running Out of Food in the Last Year: Not on file ? Ran Out of Food in the Last Year: Not on file Transportation Needs: ? Lack of Transportation (Medical): Not on file ? Lack of Transportati (more content not included)... 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: ANDRES : 1950 Requested By: MYRON DURAN Order Number: [id number] Reading MD: Dante Kim Measurements Intervals [place] Rate: 91 P: 41 LA: 154 QRS: 50 QRSD: 147 T: 8 QT: 385 QTc: 474 Interpretive Statements Sinus rhythm Right bundle branch block Electronically Signed On 10-31-2021 20:36:25 EDT by Dante Kim [facility] Dante Kim M D - 10/31/2021 [facility] Test Date: 2021-10-31 Pat Name: ANDREW SIFUENTES Department: [facility] Room: 40 Gender: M 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 Work Phone: EKG 12 Lead - Chest PainOrde red By: Dante Kim on 10-31-2021 [facility] Work Phone: Hemogram w/ [employer]od[employer] 10-31 Abs Baso Cnt 0.1 10*3/uL Normal 0.0-0.2 [facility] Comment on above: Performed By: #### P T/AP, TROPN, BMP3, HEMDF #### [address] [place] [address] Abs Neutrophile Cnt 6.0 10*3/uL Normal 1.8-7.0 [facility] Comment on above: Performed By: #### P T/AP, TROPN, BMP3, HEMDF #### [address] [address] [place] [address] Basophils/100 WBC (Bld) 1.1 % Normal 0.0-2.0 [facility] Comment on above: Performed By: #### P T/AP, TROPN, BMP3, HEMDF #### [address] [address] [place], [place] Eosinophils (Bld) [#/Vol] 0.2 10*3/uL Normal 0.0-0.5 [facility] Comment on above: Performed By: #### P T/AP, TROPN, BMP3, HEMDF #### [address] [place], [place] Eosinophils/100 WBC (Bld) 2.3 % Normal 1.0-6.0 [facility] Comment on above: Performed By: #### P T/AP, TROPN, BMP3, HEMDF #### [address] [place], [place] Erythrocyte distribution width (RBC) [Ratio] 17.2 % High 11.5-14.5 [facility] Comment on above: Performed By: #### P T/AP, TROPN, BMP3, HEMDF #### [address] [place], [place] Granulocytes/100 WBC (Bld) 61.8 % Normal 40.0-80.0 [facility] Comment on above: Performed By: #### P T/AP, TROPN, BMP3, HEMDF #### [address] [address] [place], [place] Hematocrit (Bld) [Volume fraction] 35.0 % Low 40.0-52.0 [facility] Comment on above: Performed By: #### P T/AP, TROPN, BMP3, HEMDF #### [address] [address] [place], [place] Hemoglobin (Bld) [Mass/Vol] 11.3 g/dL Low 13.0-18.0 [facility] Comment on above: Performed By: #### P T/AP, TROPN, BMP3, HEMDF #### [address] Lymphocytes (Bld) [#/Vol] 2.8 10*3/uL Normal 1.0-4.3 [facility] Comment on above: Performed By: #### P T/AP, TROPN, BMP3, HEMDF #### [address] Lymphocytes/100 WBC (Bld) 29.2 % Normal 20.0-40.0 [facility] Comment on above: Performed By: #### P T/AP, TROPN, BMP3, HEMDF #### [address] MCH (RBC) [Entitic mass] 27.5 pg Normal 26.0-34.0 [facility] Comment on above: Performed By: #### P T/AP, TROPN, BMP3, HEMDF #### [address] MCHC 32.3 % Normal 32.0-36.0 [facility] Comment on above: Performed By: #### P T/AP, TROPN, BMP3, HEMDF #### [address] MCV (RBC) [Entitic vol] 85.0 fL Normal 80.0-98.0 [facility] Comment on above: Performed By: #### P T/AP, TROPN, BMP3, HEMDF #### [facility] [address] [place], [place] Monocytes (Bld) [#/Vol] 0.5 10*3/uL Normal 0.0-0.8 [facility] Comment on above: Performed By: #### P T/AP, TROPN, BMP3, HEMDF #### [address] [place], [place] Monocytes/100 WBC (Bld) 5.6 % Normal 2.0-10.0 [facility] Comment on above: Performed By: #### P T/AP, TROPN, BMP3, HEMDF #### [address] [place], [place] Platelet mean volume (Bld) [Entitic vol] 8.6 fL Normal 7.4-12.4 [facility] Comment on above: Result Comment: MPV is a calculated measurement using platelet volume ratio. Performed By: #### P T/AP, TROPN, BMP3, HEMDF #### [address] [place], [place] Platelets (Bld) [#/Vol] 348 10*3/uL Normal 140-440 [facility] Comment on above: Performed By: #### P T/AP, TROPN, BMP3, HEMDF #### [address] [place], [place] RBC (Bld) [#/Vol] 4.12 10*6/uL Low 4.40-5.90 [facility] Comment on above: Performed By: #### P T/AP, TROPN, BMP3, HEMDF #### [address] [place], [place] WBC (Bld) [#/Vol] 9.7 10*3/uL Normal 3.6-10.7 [facility] Comment on above: Performed By: #### P T/AP, TROPN, BMP3, HEMDF #### [address] [place], [place] Laboratory - Coagulationon 0 - INR Coag (Bld) [Relative time] 2.0 {INR} [facility] Work Phone: Comment on above: Critical Value > 4.0 No Panel Informationon 10-31 Radiology Study observation (narrative) [facility] Work Phone: PROTIME/INR & PTTon 11-01-19 22 aPTT Coag (Bld) [Time] 39.2 s High 20.0 - 30.[address] [facility] Comment on above: NOTE: The therapeuti c time for Heparin anticoagulation, based on Xa activity inhibition, is an APTT of 46-80 seconds. INR Coag (Bld) [Relative time] 1.9 {INR} High [facility] Comment on above: Recommended Anticoag ulant Therapy: SEE BELOW ----- INR of 2.0 - 3.0 : - Prophylaxis of Venous Thrombosis (high-risk surgery) - Treatment of Venous Thrombosis - Treatment of Pulmonary Embolism (Includes tissue heart valves, Acute Myocardial Infarction to prevent systemic embolism, Valvular Heart Disease, and Atrial Fibrillation) ----- INR of 2.5 - 3.5 : - Mechanical Prosthetic Valves (high risk) - If oral anticoagulant therapy is used to prevent Myocardial Infarction Interpretation and review of laboratory results Abnormal [facility] PT Coag (PPP) [Time] 19.8 s High 9.0 - 12.0 s [facility] Comment on above: . Test Performed by [facility], [address] [place] [address] Protime AND APTTon aPTT Coag (Bld) [Time] 39.2 s High 20.0-30.5 [facility] Comment on above: Result Comment: NOTE : The therapeutic time for Heparin anticoagulation, based on Xa activity inhibition, is an APTT of 46-80 seconds. Performed By: #### P T/AP, TROPN, BMP3, HEMDF #### [address] [address] INR 1.9 High 0.9-1.1 [facility] Comment on above: Result Comment: Harry mmended Anticoagulant Therapy: SEE BELOW ----- INR of 2.0 - 3.0 : - Prophylaxis of Venous Thrombosis (high-risk surgery) - Treatment of Venous Thrombosis - Treatment of Pulmonary Embolism (Includes tissue heart valves, Acute Myocardial Infarction to prevent systemic embolism, Valvular Heart Disease, and Atrial Fibrillation) ----- INR of 2.5 - 3.5 : - Mechanical Prosthetic Valves (high risk) - If oral anticoagulant therapy is used to prevent Myocardial Infarction Performed By: #### P T/AP, TROPN, BMP3, HEMDF #### [address] [address] PT Coag (PPP) [Time] 19.8 s High 9.0-12.0 [facility] Comment on above: Result Comment: . Performed By: #### P T/AP, TROPN, BMP3, HEMDF #### [address] [address] Troponin Ion 10-31-2021 Troponin I.cardiac [Mass/Vol] ng/mL Normal 0.000-0.034 [facility] Comment on above: Result Comment: . Performed By: #### P T/AP, TROPN, BMP3, HEMDF #### [address] [address] Troponin x1on 10-31-2021 Troponin I.cardiac [Mass/Vol] ng/mL 0.000 - 0.034 ng/mL [facility] Comment on above: . Test Performed by [facility], [address] [place] [address] [facility] Whole blood prothrombin time on 10-31-2021 PT Coag (Bld) [Time] 23.7 s 11.7-14.9 [facility] Work Phone: XR ABDOMEN (KUB) (SINGLE AP VIEW)on 10-31-2021 Patient Name: ANDREW SIFUENTES Diagnostic Radiology ACCESSION EXAM DATE/TIME PROCEDURE ORDERING PROVIDER [id number] 10/31/2021 20:36 EDT CR Abdomen AP [id number] -MYRON DURAN CPT code 17555 Reason For Exam (CR Abdomen AP) vp software support shunt, 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 COMPARISON: October,. FINDINGS: Left IJ central venous catheter again noted. Cardiac and mediastinal silhouette within normal limits. Lungs are hypoinflated. No significant vascular congestion. No focal consolidation or apparent pneumothorax. Degenerative change again noted in the thoracic spine. IMPRESSION: 1. Hypoinflation. 2. No other acute findings. ABDOMEN SINGLE VIEW CLINICAL INDICATION: AMS. TECHNIQUE: KUB view(s) of the abdomen. COMPARISON: None. FINDINGS: No significant bowel dilatation. No apparent pneumoperitoneum, although evaluation for this entity is limited due to supine positioning. Surgical clips project over the right upper quadrant and IVC filter noted. No abnormal calcifications. Diagnostic Radiology Report Degenerative change in the thoracic and lumbar spine and bilateral hip joints. IMPRESSION: 1. Nonobstructive bowel gas pattern. Report Dictated on Workstation: [id number] --- Final --- Dictated: 10/31/2021 8:49 pm Dictating Physician: MD REYNOSO WENDELL Signed Date and Time: 10/31/2021 8:52 pm Signed by: MD REYNOSO WENDELL Transcribed Date and Time: 10/31/2021 8:49 [facility] Huang Reynoso MD - 10/31/2021 [id number]iology ACCESSION EXAM DATE/TIME PROCEDURE ORDERING PROVIDER [id number] 10/31/2021 20:36 EDT CR Abdomen AP [id number] -MYRON DURAN CPT code 75621 Reason For Exam (CR Abdomen AP) vp software support shunt, 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 COMPARISON: October,. FINDINGS: Left IJ central venous catheter again noted. Cardiac and mediastinal silhouette within normal limits. Lungs are hypoinflated. No significant vascular congestion. No focal consolidation or apparent pneumothorax. Degenerative change again noted in the thoracic spine. IMPRESSION: 1. Hypoinflation. 2. No other acute findings. ABDOMEN SINGLE VIEW CLINICAL INDICATION: AMS. TECHNIQUE: KUB view(s) of the abdomen. COMPARISON: None. FINDINGS: No significant bowel dilatation. No apparent pneumoperitoneum, although evaluation for this entity is limited due to supine positioning. Surgical clips project over the right upper quadrant and IVC filter noted. No abnormal calcifications. Diagnostic Radiology Report Degenerative change in the thoracic and lumbar spine and bilateral hip joints. IMPRESSION: 1. Nonobstructive bowel gas pattern. Report Dictated on Workstation: [id number] --- Final --- Dictated: 10/31/2021 8:49 pm Dictating Physician: MD REYNOSO WENDELL Signed Date and Time: 10/31/2021 8:52 pm Signed by: MD REYNOSO WENDELL Transcribed Date and Time: 10/31/2021 8:49 [facility] Work Phone: [facility] Work Phone: XR CHEST PORTABLEon 11-01-19 Patient Name: ANDREW LARSEN Diagnostic Radiology ACCESSION EXAM DATE/TIME PROCEDURE ORDERING PROVIDER [id number] 10/31/2021 20:36 EDT CR Chest Portable [id number] MYRON GALINDO CPT code 00388 Reason For Exam (CR Chest Portable) AMS Report CHEST PORTABLE CLINICAL INDICATION: AMS TECHNIQUE: Portable chest x-ray(s). COMPARISON: October,. FINDINGS: Left IJ central venous catheter again noted. Cardiac and mediastinal silhouette within normal limits. Lungs are hypoinflated. No significant vascular congestion. No focal consolidation or apparent pneumothorax. Degenerative change again noted in the thoracic spine. IMPRESSION: 1. Hypoinflation. 2. No other acute findings. ABDOMEN SINGLE VIEW CLINICAL INDICATION: AMS. TECHNIQUE: KUB view(s) of the abdomen. COMPARISON: None. FINDINGS: No significant bowel dilatation. No apparent pneumoperitoneum, although evaluation for this entity is limited due to supine positioning. Surgical clips project over the right upper quadrant and IVC filter noted. No abnormal calcifications. Diagnostic Radiology Report Degenerative change in the thoracic and lumbar spine and bilateral hip joints. IMPRESSION: 1. Nonobstructive bowel gas pattern. Report Dictated on Workstation: [id number] --- Final --- Dictated: 10/31/2021 8:49 pm Dictating Physician: MD REYNOSO WENDELL Signed Date and Time: 10/31/2021 8:52 pm Signed by: MD REYNOSO WENDELL Transcribed Date and Time: 10/31/2021 8:49 [facility] Huang Reynoso MD - 10/31/2021 Patient Name: ANDREW SIFUENTES Diagnostic Radiology ACCESSION EXAM DATE/TIME PROCEDURE ORDERING PROVIDER [id number] 10/31/2021 20:36 EDT CR Chest Portable [id number] -MYRON DURAN CPT code 33517 Reason For Exam (CR Chest Portable) AMS Report CHEST PORTABLE CLINICAL INDICATION: AMS TECHNIQUE: Portable chest x-ray(s). COMPARISON: October,. FINDINGS: Left IJ central venous catheter again noted. Cardiac and mediastinal silhouette within normal limits. Lungs are hypoinflated. No significant vascular congestion. No focal consolidation or apparent pneumothorax. Degenerative change again noted in the thoracic spine. IMPRESSION: 1. Hypoinflation. 2. No other acute findings. ABDOMEN SINGLE VIEW CLINICAL INDICATION: AMS. TECHNIQUE: KUB view(s) of the abdomen. COMPARISON: None. FINDINGS: No significant bowel dilatation. No apparent pneumoperitoneum, although evaluation for this entity is limited due to supine positioning. Surgical clips project over the right upper quadrant and IVC filter noted. No abnormal calcifications. Diagnostic Radiology Report Degenerative change in the thoracic and lumbar spine and bilateral hip joints. IMPRESSION: 1. Nonobstructive bowel gas pattern. Report Dictated on Workstation: [id number] --- Final --- Dictated: 10/31/2021 8:49 pm Dictating Physician: MD REYNOSO WENDELL Signed Date and Time: 10/31/2021 8:52 pm Signed by: MD REYNOSO WENDELL Transcribed Date and Time: 10/31/2021 8:49 [facility] Work Phone: XR CHEST PORTABLEOrdered By: Huang Reynoso on 10-31-2021 [facility] Work Phone: Lupus Anticoagulanton 2021 DRVVT Confirmation Test Not Applicable Negative ratio [facility] Work Phone: dRVVT Screen 38 [facility] Work Phone: Hex Phosph Neut Test Not Applicable Negative NA [facility] Work Phone: Interpretation and review of laboratory results Abnormal [facility] Work Phone: LUPUS INTERPRETATION See Note [facility] Work Phone: [phone] Comment on above: Lupus anticoagulant not detected. Elevated thrombin time with normal reptilase time indicates the presence of heparin (therapy with unfractionated or low molecular weight heparin or contamination from a line). The phospholipid-dependent screening tests (PTT after heparin neutralization and DRVVT) are not prolonged. Lupus anticoagulant antibodies are heterogeneous and antibody titers fluctuate over time. Laboratory tests used to identify lupus 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 demonstrate variable sensitivity. If there is strong clinical suspicion for antiphospholipid antibody syndrome (APS), consider testing for cardiolipin and beta-2 glycoprotein 1 antibodies (IgG and IgM) if this testing has not already been performed. Performed by [email or web address], [address] [place] [id number] [email or web address], Quiana Castro MD - Lab. Director Platelet Neutralization Not Applicable Negative NA [facility] Work Phone: [phone] PTT-D Heparin Neutralized 48 [facility] Work Phone: [phone] PTT-LA 55 High [facility] Work Phone: [phone] Reptilase Tm 17.6 <=21.9 sec [facility] Work Phone: [phone] Thrombin Time 25.3 High [facility] Work Phone: [phone] [facility] Work Phone: [phone] Lupus Anticoagulant Reflexiv e Panelon 10-29-2021 aPTT Coag (Bld) [Time] 55 s High 32-48 [facility] Comment on above: Performed By: #### C OVAG #### [facility] [address] [place] [address] aPTT Coag (Bld) [Time] 48 s Normal 32-48 [facility] Comment on above: Performed By: #### C OVAG #### [facility] [address] [place] [address] DRVVT 1:1 Mix Not Applicable Normal 33-44 [facility] Work Phone: [phone] Comment on above: Performed By: #### C OVAG #### [facility] [address] [place] [address] dRVVT Confirmation Not Applicable Normal Negative [facility] Comment on above: Performed By: #### C OVAG #### [facility] [address] [place] [address] dRVVT Screen 38 sec Normal 33-44 [facility] Comment on above: Performed By: #### C OVAG #### [facility] [address] [place] [address] Hexagonal Phospholipid Neutral Reflex Not Applicable Normal Negative [facility] Comment on above: Performed By: #### C OVAG #### [facility] [address] [place] [address] Lupus Anticoagulant Interpretation See Note Normal [facility] Comment on above: Result Comment: Lupu s anticoagulant not detected. Elevated thrombin time with normal reptilase time indicates the presence of heparin (therapy with unfractionated or low molecular weight heparin or contamination from a line). The phospholipid-dependent screening tests (PTT after heparin neutralization and DRVVT) are not prolonged. Lupus anticoagulant antibodies are heterogeneous and antibody titers fluctuate over time. Laboratory tests used to identify lupus 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 demonstrate variable sensitivity. If there is strong clinical suspicion for antiphospholipid antibody syndrome (APS), consider testing for cardiolipin and beta-2 glycoprotein 1 antibodies (IgG and IgM) if this testing has not already been performed. Performed by [email or web address], [address] [place] [address] [email or web address], Quiana Castro MD - Lab. Director Performed By: #### C OVAG #### [facility] [address] [place] [address] Platelet Neutralization (PTT-D, Confirm) Not Applicable Normal Negative [facility] Comment on above: Performed By: #### C OVAG #### [facility] [address] [place] [address] PT Coag (PPP) [Time] 14.7 s Normal 12.0-15.5 [facility] Work Phone: Comment on above: Performed By: #### C OVAG #### [facility] [address] [place] [address] PTT-D 1:1 Mix Not Applicable Normal 32-48 [facility] Work Phone: Comment on above: Performed By: #### C OVAG #### [facility] [address] [place] [address] Reptilase Time 17.6 sec Normal <=21.9 [facility] Comment on above: Performed By: #### C OVAG #### [facility] [address] [place] [address] Thrombin Time 25.3 sec High 14.7-19.5 [facility] Comment on above: Performed By: #### C OVAG #### [facility] [address] [place] [address] POCT COVID-19, Antigenon SARS-CoV-2 Nucleocapsid Antigen Negative Negative [facility] Comment on above: A negative result does not rule out the possibility of SARS-CoV-2 infection. NAAT-based methods should be considered for symptomatic patients presenting greater than seven days after onset of symptoms. Method: Lateral flow immunoassay. Fact sheets for healthcare providers and patients can be found at the following sites: https://www.fda.gov/media/500882/download https://www.fda.gov/media/884731/download Test Performed by [facility], [address] [place], [place] [id number] [place] [address] [facility] Prothrombin Timeon INR 2.7 High 0.9-1.1 [facility] Comment on above: Result Comment: Harry mmended Anticoagulant Therapy: SEE BELOW ----- INR of 2.0 - 3.0 : - Prophylaxis of Venous Thrombosis (high-risk surgery) - Treatment of Venous Thrombosis - Treatment of Pulmonary Embolism (Includes tissue heart valves, Acute Myocardial Infarction to prevent systemic embolism, Valvular Heart Disease, and Atrial Fibrillation) ----- INR of 2.5 - 3.5 : - Mechanical Prosthetic Valves (high risk) - If oral anticoagulant therapy is used to prevent Myocardial Infarction Performed By: #### P T #### [facility] [address] [place] [address] PT Coag (PPP) [Time] 27.4 s High 9.0-12.0 [facility] Comment on above: Result Comment: . Performed By: #### P T #### [facility] [address] [place] [id number] Protime-INRon 10-29-2021 INR Coag (Bld) [Relative time] 2.7 {INR} High [facility] Work Phone: Comment on above: Recommended Anticoag ulant Therapy: SEE BELOW ----- INR of 2.0 - 3.0 : - Prophylaxis of Venous Thrombosis (high-risk surgery) - Treatment of Venous Thrombosis - Treatment of Pulmonary Embolism (Includes tissue heart valves, Acute Myocardial Infarction to prevent systemic embolism, Valvular Heart Disease, and Atrial Fibrillation) ----- INR of 2.5 - 3.5 : - Mechanical Prosthetic Valves (high risk) - If oral anticoagulant therapy is used to prevent Myocardial Infarction Interpretation and review of laboratory results Abnormal [facility] Work Phone: PT Coag (PPP) [Time] 27.4 s High 9.0 - 12.0 s [employer] Work Phone: Comment on above: . Test Performed by [facility], [address] [place], [place] [address] [facility] Work Phone: SARS-CoV-2 Antigenon 022 SARS-CoV-2 Antigen Negative Normal Negative [facility] Comment on above: Result Comment: A negative result does not rule out the possibility of SARS-CoV-2 infection. NAAT-based methods should be considered for symptomatic patients presenting greater than seven days after onset of symptoms. Method: Lateral flow immunoassay. Fact sheets for healthcare providers and patients can be found at the following sites: https://www.fda.gov/media/615780/download https://www.fda.gov/media/680141/download Performed By: #### C OVAG #### [facility] [address] [place] [address] CBCon 10-28-2021 Hematocrit (Bld) [Volume fraction] 33.4 % Low 40.0 - 52.0 % [facility] Work Phone: Hemoglobin (Bld) [Mass/Vol] 11.0 g/dL Low 13.0 - 18.0 g/dL [facility] Work Phone: Interpretation and review of laboratory results Abnormal [facility] Work Phone: 1() MCH (RBC) [Entitic mass] 27.8 pg 26.0 - 34.0 pg [facility] Work Phone: MCHC (RBC) [Mass/Vol] 32.8 % 32.0 - 36.0 % [facility] Work Phone: 1( MCV (RBC) [Entitic vol] 84.8 fL 80.0 - 98.0 fL [facility] Work Phone: Platelet distribution width (Bld) [Ratio] 17.1 % High 11.5 - 14.5 % [facility] Work Phone: Platelet mean volume (Bld) [Entitic vol] 8.3 fL 7.4 - 12.4 fL [facility] Work Phone: 1 Comment on above: MPV is a calculated measurement using platelet volume ratio. Platelets (Bld) [#/Vol] 344 10*3/uL 140 - 440 10*3/uL [facility] Work Phone: 1() RBC (Bld) [#/Vol] 3.94 10*6/uL Low 4.40 - 5.9 0 10*6/uL [facility] Work Phone: ) WBC (Bld) [#/Vol] 10.0 10*3/uL 3.6 - 10.7 10*3/uL [facility] Work Phone: 1) Test Performed by [facility], [address] [place], [place] [id number] [place] [address] [facility] Work Phone: 1) Comp Metabolic Panelon 10-28 ALP [Catalytic activity/Vol] 103 U/L Normal 38-126 [facility] Comment on above: Performed By: #### C A19O, LUPUS #### The performing lab is in the report. #### NSEO #### [facility] #### HEMDF, LDH3, BMP3, MG3, PT, CEA2 #### [facility] [address] [place] [address] #### B2GPM, B2GPA, B2GPG #### [address] ALT [Catalytic activity/Vol] 26 U/L Normal 0-49 [facility] Comment on above: Result Comment: The ALT test is performed by an updated assay method. Please note that the reference intervals have been changed and are now sex specific. Performed By: #### C A19O, LUPUS #### The performing lab is in the report. #### NSEO #### [facility] #### HEMDF, LDH3, BMP3, MG3, PT, CEA2 #### [place] [address] [place] [address] #### B2GPM, B2GPA, B2GPG #### [address] AST [Catalytic activity/Vol] 24 U/L Normal 15-46 [facility] Comment on above: Performed By: #### C A19O, LUPUS #### The performing lab is in the report. #### NSEO #### [facility] #### HEMDF, LDH3, BMP3, MG3, PT, CEA2 #### [facility] [address] [place] [address] #### B2GPM, B2GPA, B2GPG #### [address] Calcium [Mass/Vol] 9.1 mg/dL Normal 8.4-10.4 [facility] Comment on above: Performed By: #### C A19O, LUPUS #### The performing lab is in the report. #### NSEO #### [facility] #### HEMDF, LDH3, BMP3, MG3, PT, CEA2 #### [facility] [address] [place] [address] #### B2GPM, B2GPA, B2GPG #### [address] Glucose [Mass/Vol] 117 mg/dL High 70-100 [facility] Comment on above: Performed By: #### C A19O, LUPUS #### The performing lab is in the report. #### NSEO #### [facility] #### HEMDF, LDH3, BMP3, MG3, PT, CEA2 #### [place] [address] [place] [address] #### B2GPM, B2GPA, B2GPG #### [address] Urea nitrogen [Mass/Vol] 16 mg/dL Normal 7-17 [facility] Comment on above: Performed By: #### C A19O, LUPUS #### The performing lab is in the report. #### NSEO #### [facility] #### HEMDF, LDH3, BMP3, MG3, PT, CEA2 #### [address] [place] #### B2GPM, B2GPA, B2GPG #### [address] Anion gap [Moles/Vol] 5 mmol/L Normal 3-13 [facility] Comment on above: Performed By: #### C A19O, LUPUS #### The performing lab is in the report. #### NSEO #### [facility] #### HEMDF, LDH3, BMP3, MG3, PT, CEA2 #### [place] [address] [place] [address] #### B2GPM, B2GPA, B2GPG #### [address] Bilirubin [Mass/Vol] 0.4 mg/dL Normal 0.2-1.3 [facility] Comment on above: Performed By: #### C A19O, LUPUS #### The performing lab is in the report. #### NSEO #### [facility] #### HEMDF, LDH3, BMP3, MG3, PT, CEA2 #### [place] [address] [place] [address] #### B2GPM, B2GPA, B2GPG #### [facility] [address] [place], [place] CO2 [Moles/Vol] 29 mmol/L Normal 22-30 [facility] Comment on above: Performed By: #### C A19O, LUPUS #### The performing lab is in the report. #### NSEO #### [facility] #### HEMDF, LDH3, BMP3, MG3, PT, CEA2 #### [facility] [address] [place] [address] #### B2GPM, B2GPA, B2GPG #### [address] Creatinine [Mass/Vol] 0.71 mg/dL Normal 0.52-1.25 [facility] Comment on above: Performed By: #### C A19O, LUPUS #### The performing lab is in the report. #### NSEO #### [facility] #### HEMDF, LDH3, BMP3, MG3, PT, CEA2 #### [facility] [address] [place] [address] #### B2GPM, B2GPA, B2GPG #### [address] eGFR OTHER > 90.0 Normal >60 [facility] Comment on above: Result Comment: KDIG O guidelines provide the following GFR categories: Stage GFR(ml/min/1.73 m2) Terms G1 >=90 Normal or high G2 60-89 Mildly decreased* G3a 45-59 Mildly to moderately decreased G3b 30-44 Moderately to severely decreased G4 15-29 Severely decreased G5 <15 Kidney failure *Relative to young adult level. In the absence of evidence of kidney damage, neither GFR category G1 nor G2 fulfill the criteria for CKD. The CKD-EPI equation is validated in individuals 18 years of age and older. Currently the best equation for estimating glomerular filtration rate (GFR) from serum creatinine in children is the Bedside Medina equation. It is less accurate in patients with extremes of muscle mass, restriction of dietary protein, ingestion of creatine, extra-renal metabolism of creatinine, or treatment with medications that affect renal tubular creatinine secretion. Performed By: #### C A19O, LUPUS #### The performing lab is in the report. #### NSEO #### [facility] #### HEMDF, LDH3, BMP3, MG3, PT, CEA2 #### [facility] [address] [place] [address] #### B2GPM, B2GPA, B2GPG #### [address] GFR/1.73 sq M.predicted among blacks MDRD (S/P/Bld) [Vol rate/Area] mL/min/{1.73_m2} Normal >60 [facility] Comment on above: Performed By: #### C A19O, LUPUS #### The performing lab is in the report. #### NSEO #### [facility] #### HEMDF, LDH3, BMP3, MG3, PT, CEA2 #### [address] [place] #### B2GPM, B2GPA, B2GPG #### [address] Protein [Mass/Vol] 7.1 g/dL Normal 6.3-8.2 [facility] Comment on above: Performed By: #### C A19O, LUPUS #### The performing lab is in the report. #### NSEO #### [facility] #### HEMDF, LDH3, BMP3, MG3, PT, CEA2 #### [address] [place] #### B2GPM, B2GPA, B2GPG #### [address] Potassium [Moles/Vol] 3.5 mmol/L Normal 3.5-5.1 [facility] Comment on above: Performed By: #### C A19O, LUPUS #### The performing lab is in the report. #### NSEO #### [facility] #### HEMDF, LDH3, BMP3, MG3, PT, CEA2 #### [facility] [address] [place] [address] #### B2GPM, B2GPA, B2GPG #### [address] Sodium [Moles/Vol] 138 mmol/L Normal 135-145 [facility] Comment on above: Performed By: #### C A19O, LUPUS #### The performing lab is in the report. #### NSEO #### [facility] #### HEMDF, LDH3, BMP3, MG3, PT, CEA2 #### [place] [address] [place] #### B2GPM, B2GPA, B2GPG #### [address] Albumin [Mass/Vol] 3.7 g/dL Normal 3.5-5.0 [facility] Comment on above: Performed By: #### C A19O, LUPUS #### The performing lab is in the report. #### NSEO #### [facility] #### HEMDF, LDH3, BMP3, MG3, PT, CEA2 #### [address] [place] [address] #### B2GPM, B2GPA, B2GPG #### [address] Chloride [Moles/Vol] 104 mmol/L Normal 98-107 [facility] Comment on above: Performed By: #### C A19O, LUPUS #### The performing lab is in the report. #### NSEO #### [facility] #### HEMDF, LDH3, BMP3, MG3, PT, CEA2 #### [address] [place] [address] #### B2GPM, B2GPA, B2GPG #### [address] Comprehensive Metabolic Pane kiel 10-28-2021 Albumin [Mass/Vol] 3.7 g/dL 3.5 - 5.0 g/dL [employer] Work Phone: ALP (Bld) [Catalytic activity/Vol] 103 U/L 38 - 126 U/L [facility] Work Phone: [phone] ALT [Catalytic activity/Vol] 26 U/L 0 - 49 U/L [facility] Work Phone: Comment on above: The ALT test is perf ormed by an updated assay method. Please note that the reference intervals have been changed and are now sex specific. Anion gap [Moles/Vol] 5 mmol/L 3 - 13 mmol/L [facility] Work Phone: [phone] AST [Catalytic activity/Vol] 24 U/L 15 - 46 U/L [employer] Work Phone: [phone] Bilirubin [Mass/Vol] 0.4 mg/dL 0.2 - 1 .3 mg/dL [employer] Work Phone: [phone] Calcium [Mass/Vol] 9.1 mg/dL 8.4 - 10. 4 mg/dL [facility] Work Phone: [phone] Chloride [Moles/Vol] 104 mmol/L 98 - 10 7 mmol/L [facility] Work Phone: [phone] CO2 [Moles/Vol] 29 mmol/L 22 - 30 mmol/L [facility] Work Phone: [phone] Creatinine [Mass/Vol] 0.71 mg/dL 0.52 - 1.25 mg/dL [facility] Work Phone: EGFR IF NonAfrican Tunisian >90.0 >60 mL/min [facility] Work Phone: [phone] Comment on above: KDIGO guidelines pro vide the following GFR categories: Stage GFR(ml/min/1.73 m2) Terms G1 >=90 Normal or high G2 60-89 Mildly decreased* G3a 45-59 Mildly to moderately decreased G3b 30-44 Moderately to severely decreased G4 15-29 Severely decreased G5 <15 Kidney failure *Relative to young adult level. In the absence of evidence of kidney damage, neither GFR category G1 nor G2 fulfill the criteria for CKD. The CKD-EPI equation is validated in individuals 18 years of age and older. Currently the best equation for estimating glomerular filtration rate (GFR) from serum creatinine in children is the Bedside Medina equation. It is less accurate in patients with extremes of muscle mass, restriction of dietary protein, ingestion of creatine, extra-renal metabolism of creatinine, or treatment with medications that affect renal tubular creatinine secretion. Free PSA/Total PSA [Mass fraction] 7.1 g/dL 6.3 - 8.2 g/dL [facility] Work Phone: GFR/1.73 sq M.predicted among blacks MDRD (S/P/Bld) [Vol rate/Area] mL/min/{1.73_m2} >60 mL/min [facility] Work Phone: Glucose [Mass/Vol] 117 mg/dL High 70 - 100 mg/dL [facility] Work Phone: Interpretation and review of laboratory results Abnormal [facility] Work Phone: Potassium [Moles/Vol] 3.5 mmol/L 3.5 - 5.1 mmol/L [facility] Work Phone: Sodium [Moles/Vol] 138 mmol/L 135 - 145 mmol/L [facility] Work Phone: Urea nitrogen (BldV) [Mass/Vol] 16 mg/dL 7 - 17 mg/dL [facility] Work Phone: Test Performed by [facility], [address] [place], [place] [address] [facility] Work Phone: Hemogramon 10-28-2021 Erythrocyte distribution width (RBC) [Ratio] 17.1 % High 11.5-14.5 [facility] Comment on above: Performed By: #### C A19O, LUPUS #### The performing lab is in the report. #### NSEO #### [facility] #### HEMDF, LDH3, BMP3, MG3, PT, CEA2 #### [facility] [address] [place] [address] #### B2GPM, B2GPA, B2GPG #### [facility] [address] [id number] Hematocrit (Bld) [Volume fraction] 33.4 % Low 40.0-52.0 [facility] Comment on above: Performed By: #### C A19O, LUPUS #### The performing lab is in the report. #### NSEO #### [facility] #### HEMDF, LDH3, BMP3, MG3, PT, CEA2 #### [facility] [address] [place] [address] #### B2GPM, B2GPA, B2GPG #### [address] Hemoglobin (Bld) [Mass/Vol] 11.0 g/dL Low 13.0-18.0 [facility] Comment on above: Performed By: #### C A19O, LUPUS #### The performing lab is in the report. #### NSEO #### [facility] #### HEMDF, LDH3, BMP3, MG3, PT, CEA2 #### [address] [place] [address] #### B2GPM, B2GPA, B2GPG #### [address] MCH (RBC) [Entitic mass] 27.8 pg Normal 26.0-34.0 [facility] Comment on above: Performed By: #### C A19O, LUPUS #### The performing lab is in the report. #### NSEO #### [facility] #### HEMDF, LDH3, BMP3, MG3, PT, CEA2 #### [address] [place], [place] #### B2GPM, B2GPA, B2GPG #### [address] MCHC 32.8 % Normal 32.0-36.0 [facility] Comment on above: Performed By: #### C A19O, LUPUS #### The performing lab is in the report. #### NSEO #### [facility] #### HEMDF, LDH3, BMP3, MG3, PT, CEA2 #### [facility] [address] [place] #### B2GPM, B2GPA, B2GPG #### [address] MCV (RBC) [Entitic vol] 84.8 fL Normal 80.0-98.0 [facility] Comment on above: Performed By: #### C A19O, LUPUS #### The performing lab is in the report. #### NSEO #### [facility] #### HEMDF, LDH3, BMP3, MG3, PT, CEA2 #### [place] [address] [place] #### B2GPM, B2GPA, B2GPG #### [address] Platelet mean volume (Bld) [Entitic vol] 8.3 fL Normal 7.4-12.4 [facility] Comment on above: Result Comment: MPV is a calculated measurement using platelet volume ratio. Performed By: #### C A19O, LUPUS #### The performing lab is in the report. #### NSEO #### [facility] #### HEMDF, LDH3, BMP3, MG3, PT, CEA2 #### [address] [place] #### B2GPM, B2GPA, B2GPG #### [address] Platelets (Bld) [#/Vol] 344 10*3/uL Normal 140-440 [facility] Comment on above: Performed By: #### C A19O, LUPUS #### The performing lab is in the report. #### NSEO #### [facility] #### HEMDF, LDH3, BMP3, MG3, PT, CEA2 #### [place] [address] [place] #### B2GPM, B2GPA, B2GPG #### [place] [address] [place], [place] RBC (Bld) [#/Vol] 3.94 10*6/uL Low 4.40-5.90 [facility] Comment on above: Performed By: #### C A19O, LUPUS #### The performing lab is in the report. #### NSEO #### [facility] #### HEMDF, LDH3, BMP3, MG3, PT, CEA2 #### [facility] [address] [place] [address] #### B2GPM, B2GPA, B2GPG #### [address] WBC (Bld) [#/Vol] 10.0 10*3/uL Normal 3.6-10.7 [facility] Comment on above: Performed By: #### C A19O, LUPUS #### The performing lab is in the report. #### NSEO #### [facility] #### HEMDF, LDH3, BMP3, MG3, PT, CEA2 #### [facility] [address] [place] [address] #### B2GPM, B2GPA, B2GPG #### [address] Neuron Specific Enolaseon Neuron Specific Enolase 20.8 Normal [facility] Comment on above: Result Comment: Neur on Specific Enolase, Serum 20.8 ng/mL H (Ref Interval: <=12.7) NSE and Hgb are elevated in the specimen. The elevated NSE may be a result of hemolysis as NSE is expressed in red blood cells. Interpret results with caution. INTERPRETIVE INFORMATION: Neuron Specific Enolase in Serum This assay is performed using the [employer] NSE Kryptor Immunoassay. Results obtained with different assay methods or kits cannot be used interchangeably. Results cannot be interpreted as absolute evidence of the presence or absence of malignant disease. This test was developed and its performance characteristics determined by [employer]. It has not been cleared or approved by the [place] Food and Drug Administration. This test was performed in a CLIA certified laboratory and is intended for clinical purposes. Performed By: #### C OVAG #### [facility] [address] [place] [address] Neuron specific enolase (NSE )on 10-28-2021 Neuron [address] [facility] Work Phone: Comment on above: Neuron Specific Enol ase, Serum 20.8 ng/mL H (Ref Interval: <=12.7) NSE and Hgb are elevated in the specimen. The elevated NSE may be a result of hemolysis as NSE is expressed in red blood cells. Interpret results with caution. INTERPRETIVE INFORMATION: Neuron Specific Enolase in Serum This assay is performed using the [employer] NSE Kryptor Immunoassay. Results obtained with different assay methods or kits cannot be used interchangeably. Results cannot be interpreted as absolute evidence of the presence or absence of malignant disease. This test was developed and its performance characteristics determined by [employer]. It has not been cleared or approved by the US Food and Drug Administration. This test was performed in a CLIA certified laboratory and is intended for clinical purposes. 1 [facility] Work Phone: Prothrombin Timeon 2 INR 3.1 High 0.9-1.1 [facility] Comment on above: Result Comment: Harry mmended Anticoagulant Therapy: SEE BELOW ----- INR of 2.0 - 3.0 : - Prophylaxis of Venous Thrombosis (high-risk surgery) - Treatment of Venous Thrombosis - Treatment of Pulmonary Embolism (Includes tissue heart valves, Acute Myocardial Infarction to prevent systemic embolism, Valvular Heart Disease, and Atrial Fibrillation) ----- INR of 2.5 - 3.5 : - Mechanical Prosthetic Valves (high risk) - If oral anticoagulant therapy is used to prevent Myocardial Infarction Performed By: #### C A19O, LUPUS #### The performing lab is in the report. #### NSEO #### [facility] #### HEMDF, LDH3, BMP3, MG3, PT, CEA2 #### [facility] [address] [place] [address] #### B2GPM, B2GPA, B2GPG #### [facility] [address] [place] [address] PT Coag (PPP) [Time] 30.8 s High 9.0-12.0 [facility] Comment on above: Result Comment: . Performed By: #### C A19O, LUPUS #### The performing lab is in the report. #### NSEO #### [facility] #### HEMDF, LDH3, BMP3, MG3, PT, CEA2 #### [facility] [address] [place] [address] #### B2GPM, B2GPA, B2GPG #### [facility] [address] [place] [address] Protime-INRon 10-28-2021 INR Coag (Bld) [Relative time] 3.1 {INR} High [facility] Work Phone: Comment on above: Recommended Anticoag ulant Therapy: SEE BELOW ----- INR of 2.0 - 3.0 : - Prophylaxis of Venous Thrombosis (high-risk surgery) - Treatment of Venous Thrombosis - Treatment of Pulmonary Embolism (Includes tissue heart valves, Acute Myocardial Infarction to prevent systemic embolism, Valvular Heart Disease, and Atrial Fibrillation) ----- INR of 2.5 - 3.5 : - Mechanical Prosthetic Valves (high risk) - If oral anticoagulant therapy is used to prevent Myocardial Infarction Interpretation and review of laboratory results Abnormal [facility] Work Phone: PT Coag (PPP) [Time] 30.8 s High 9.0 - 12.0 s [facility] Work Phone: Comment on above: . Test Performed by [facility], [address], [place], [place] [address] [facility] Work Phone: MRI BRAIN WO CONTRASTon 10-06 Patient Name: ANDREW SIFUENTES Magnetic Resonance Imaging ACCESSION EXAM DATE/TIME PROCEDURE ORDERING PROVIDER [id number] 10/27/2021 13:14 EDT MRI Brain w/o Contrast UNASSIGNED, UNASSIGNED CPT code 04260 Reason For Exam (MRI Brain w/o Contrast) stroke Patient has SUPERVISOR POST WAVE shunt in place, please follow Radiology protocol for the same and see if MRI brain can be done Report EXAMINATION: MRI BRAIN WITHOUT CONTRAST CLINICAL INDICATION: History of hydrocephalus and seizures, altered mental status TECHNIQUE: Multi-planar multi-sequential MR imaging of the brain was performed without intravenous contrast. COMPARISON: Head CT 10/26/2021. FINDINGS: Left parietal EVD with tip terminating in the right foramen of [place]. Right parietal EVD shunt terminating in the frontal horn of the right lateral ventricle also noted. There is also evidence of prior left frontal EVD shunt. No acute infarction, intracranial hemorrhage or mass. Chronic hemosiderin in the right parietal lobe and left frontal lobe, likely representing sequela of EVD insertion. There is confluent periventricular white matter disease, which may be due to combination of microangiopathic disease and sequela of EVD insertion. Mild diffuse parenchymal volume loss with diffuse prominence of the sulci and ventricles. Ventricles are decompressed.No extra-axial fluid collections. The skull base flow voids are present. The visualized intraorbital contents are normal. The imaged portions of the paranasal sinuses are clear. The mastoid air cells are clear. The visualized osseous structures, soft tissues and partially visualized parotid glands appear normal. IMPRESSION: No acute intracranial abnormality. Left parietal EVD noted. Indwelling tubing within the right parietal lobe from prior EVD. There is also evidence of previous left frontal EVD. Ventricles are decompressed. Confluent periventricular white matter disease, which may be due to combination of microangiopathic disease and sequela of EVD insertion. Magnetic Resonance Imaging Report Mild diffuse parenchymal volume loss. Report Dictated on --- Final --- Dictating Physician: MD LOYD WASSIM OSAMA Signed Date and Time: 10/27/2021 2:38 pm Signed by: MD LOYD WASSIM OSAMA Transcribed Date and Time: 10/27/2021 2:39 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 COMPARISON: Head CT 10/26/2021. FINDINGS: Left parietal EVD with tip terminating in the right foramen of Segovia. Right parietal EVD shunt terminating in the frontal horn of the right lateral ventricle also noted. There is also evidence of prior left frontal EVD shunt. No acute infarction, intracranial hemorrhage or mass. Chronic hemosiderin in the right parietal lobe and left frontal lobe, likely representing sequela of EVD insertion. There is confluent periventricular white matter disease, which may be due to combination of microangiopathic disease and sequela of EVD insertion. Mild diffuse parenchymal volume loss with diffuse prominence of the sulci and ventricles. Ventricles are decompressed.No extra-axial fluid collections. The skull base flow voids are present. The visualized intraorbital contents are normal. The imaged portions of the paranasal sinuses are clear. The mastoid air cells are clear. The visualized osseous structures, soft tissues and partially visualized parotid glands appear normal. IMPRESSION: No acute intracranial abnormality. Left parietal EVD noted. Indwelling tubing within the right parietal lobe from prior EVD. There is also evidence of previous left frontal EVD. Ventricles are decompressed. Confluent periventricular white matter disease, which may be due to combination of microangiopathic disease and sequela of EVD insertion. Magnetic Resonance Imaging Report Mild diffuse parenchymal volume loss. 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 COMPARISON: Head CT 10/26/2021. FINDINGS: Left parietal EVD with tip terminating in the right foramen of Segovia. Right parietal EVD shunt terminating in the frontal horn of the right lateral ventricle also noted. There is also evidence of prior left frontal EVD shunt. No acute infarction, intracranial hemorrhage or mass. Chronic hemosiderin in the right parietal lobe and left frontal lobe, likely representing sequela of EVD insertion. There is confluent periventricular white matter disease, which may be due to combination of microangiopathic disease and sequela of EVD insertion. Mild diffuse parenchymal volume loss with diffuse prominence of the sulci and ventricles. Ventricles are decompressed.No extra-axial fluid collections. The skull base flow voids are present. The visualized intraorbital contents are normal. The imaged portions of the paranasal sinuses are clear. The mastoid air cells are clear. The visualized osseous structures, soft tissues and partially visualized parotid glands appear normal. IMPRESSION: No acute intracranial abnormality. Left parietal EVD noted. Indwelling tubing within the right parietal lobe from prior EVD. There is also evidence of previous left frontal EVD. Ventricles are decompressed. Confluent periventricular white matter disease, which may be due to combination of microangiopathic disease and sequela of EVD insertion. Magnetic Resonance Imaging Report Mild diffuse parenchymal volume loss. Report Dictated on Final Dictating Physician: MD KHARI, VENUS RAMOS Signed Date and Time: 10/27/2021 2:38 pm Signed by: MD KHARI, VENUS RAMOS Transcribed Date and Time: 10/27/2021 2:39 Normal [facility] Prothrombin Timeon 2 INR 2.1 High 0.9-1.1 [facility] Comment on above: Result Comment: Harry mmended Anticoagulant Therapy: SEE BELOW ----- INR of 2.0 - 3.0 : - Prophylaxis of Venous Thrombosis (high-risk surgery) - Treatment of Venous Thrombosis - Treatment of Pulmonary Embolism (Includes tissue heart valves, Acute Myocardial Infarction to prevent systemic embolism, Valvular Heart Disease, and Atrial Fibrillation) ----- INR of 2.5 - 3.5 : - Mechanical Prosthetic Valves (high risk) - If oral anticoagulant therapy is used to prevent Myocardial Infarction Performed By: #### P T #### [facility] [address] [place] [address] PT Coag (PPP) [Time] 21.9 s High 9.0-12.0 [facility] Work Phone: Comment on above: . Result Comment: . Performed By: #### P T #### [facility] [address] [place] [address] Protime-INRon 10-27-2021 INR Coag (Bld) [Relative time] 2.1 {INR} High [facility] Work Phone: Comment on above: Recommended Anticoag ulant Therapy: SEE BELOW ----- INR of 2.0 - 3.0 : - Prophylaxis of Venous Thrombosis (high-risk surgery) - Treatment of Venous Thrombosis - Treatment of Pulmonary Embolism (Includes tissue heart valves, Acute Myocardial Infarction to prevent systemic embolism, Valvular Heart Disease, and Atrial Fibrillation) ----- INR of 2.5 - 3.5 : - Mechanical Prosthetic Valves (high risk) - If oral anticoagulant therapy is used to prevent Myocardial Infarction Interpretation and review of laboratory results Abnormal [facility] Work Phone: Test Performed by [facility], [address] [place], [place] [address] [facility] Work Phone: CT HEAD WO CONTRASTon 2021 Patient Name: ANDREW SIFUENTES Computed Tomography ACCESSION EXAM DATE/TIME PROCEDURE ORDERING PROVIDER [id number] 10/26/2021 11:[address] Head or Brain w/o LOIS, HOUSEKEEPING MANAGER, SARINA Contrast CPT code 75365 Reason For Exam (CT Head or Brain w/o Contrast) hydrocephalus. thank you Report CLINICAL INFORMATION: Hydrocephalus. Shunt. 3 mm axial cuts through the head are obtained without IV contrast. The examination is compared to a previous study dated 06/29/2014. FINDINGS: Old SUPERVISOR POST WAVE shunt tubing is noted bilaterally. The new or shunt on the left (via the left parietal lobe) terminates just across the midline in the region of the 3rd ventricle. The ventricles are within normal limits in respect to their size and configuration. There is no hydrocephalus. There is no evidence of mass or mass-effect. There are no abnormal intra- or extra-axial fluid collections. No hemorrhage is identified. There is mild cortical atrophy. Patchy low-attenuation is noted within the periventricular, deep, and subcortical white matter. There is no CT evidence of an acute infarct. Bone windows demonstrate no evidence of fracture and the visualized paranasal sinuses and mastoid air cells are clear. IMPRESSION: 1. Old and new SUPERVISOR POST WAVE shunt tubing. 2. No hydrocephalus. 3. Atrophy and evidence of small-vessel ischemic disease. 4. No CT evidence of an acute intracranial process. Report Dictated on --- Final --- Dictating Physician: MD SOLANO JEFFREY Signed Date and Time: 10/26/2021 11:42 am Signed by: MD SOLANO JEFFREY Transcribed Date and Time: 10/26/2021 11:43 [facility] Albert Solano MD - 10/26/2021 [id number] Tomography ACCESSION EXAM DATE/TIME PROCEDURE ORDERING PROVIDER [id number] 10/26/2021 11:[address] Head or Brain w/o JUNIE PINEDA, SARINA Contrast CPT code 34547 Reason For Exam (CT Head or Brain w/o Contrast) hydrocephalus. thank you Report CLINICAL INFORMATION: Hydrocephalus. Shunt. 3 mm axial cuts through the head are obtained without IV contrast. The examination is compared to a previous study dated 06/29/2014. FINDINGS: Old SUPERVISOR POST WAVE shunt tubing is noted bilaterally. The new or shunt on the left (via the left parietal lobe) terminates just across the midline in the region of the 3rd ventricle. The ventricles are within normal limits in respect to their size and configuration. There is no hydrocephalus. There is no evidence of mass or mass-effect. There are no abnormal intra- or extra-axial fluid collections. No hemorrhage is identified. There is mild cortical atrophy. Patchy low-attenuation is noted within the periventricular, deep, and subcortical white matter. There is no CT evidence of an acute infarct. Bone windows demonstrate no evidence of fracture and the visualized paranasal sinuses and mastoid air cells are clear. IMPRESSION: 1. Old and new SUPERVISOR POST WAVE shunt tubing. 2. No hydrocephalus. 3. Atrophy and evidence of small-vessel ischemic disease. 4. No CT evidence of an acute intracranial process. Report Dictated on --- Final --- Dictating Physician: MD SOLANO JEFFREY Signed Date and Time: 10/26/2021 11:42 am Signed by: MD SOLANO JEFFREY Transcribed Date and Time: 10/26/2021 11:43 [facility] Work Phone: CT HEAD WO CONTRASTOrdered B y: Albert Solano on 10-26-2021 [facility] Work Phone: CT Head or Brain w/o Contras ton 10-26-2021 CT Head or Brain w/o Contrast Patient Name: ANDREW SIFUENTES Computed Tomography ACCESSION EXAM DATE/TIME PROCEDURE ORDERING PROVIDER [id number] 10/26/2021 11:[address] Head or Brain w/o JUNIE PINEDA ALLISON Contrast CPT code 79250 Reason For Exam (CT Head or Brain w/o Contrast) hydrocephalus. thank you Report CLINICAL INFORMATION: Hydrocephalus. Shunt. 3 mm axial cuts through the head are obtained without IV contrast. The examination is compared to a previous study dated 06/29/2014. FINDINGS: Old SUPERVISOR POST WAVE shunt tubing is noted bilaterally. The new or shunt on the left (via the left parietal lobe) terminates just across the midline in the region of the 3rd ventricle. The ventricles are within normal limits in respect to their size and configuration. There is no hydrocephalus. There is no evidence of mass or mass-effect. There are no abnormal intra- or extra-axial fluid collections. No hemorrhage is identified. There is mild cortical atrophy. Patchy low-attenuation is noted within the periventricular, deep, and subcortical white matter. There is no CT evidence of an acute infarct. Bone windows demonstrate no evidence of fracture and the visualized paranasal sinuses and mastoid air cells are clear. IMPRESSION: 1. Old and new SUPERVISOR POST WAVE shunt tubing. 2. No hydrocephalus. 3. Atrophy and evidence of small-vessel ischemic disease. 4. No CT evidence of an acute intracranial process. Report Dictated on Final Dictating Physician: MD SOLANO JEFFREY Signed Date and Time: 10/26/2021 11:42 am Signed by: MD SOLANO JEFFREY Transcribed Date and Time: 10/26/2021 11:43 Normal [facility] EEG awake and asleepon 10-26 Bony Tompkins MD 10/26/2021 4:[address] [facility] [address] [place] [id number] ROUTINE EEG REPORT Patient Name: Andrew Sifuentes : 1950 Date of Study: 10/26/2021 Duration Recorded: 23 minutes EEG#: [id number] LAMP WIRER: CASTRO PROVIDER REQUESTING STUDY: Dr. Barreto REASON FOR EXAM: seizures HISTORY: Andrew Sifuentes is a 71 y.o. male with history of obstructive hydrocephalus s/p SUPERVISOR POST WAVE shunt in 1987, needing multiple revisions and infections, H/O stroke in May 2021 with residual right sided weakness, H/O of PE on Eliquis, H/O seizure admitted with Right LE DVT, Eliquis changed to Coumadin during this admission by Hematology. Neurology consulted today for history of hydrocephalus and seizures at daughter's request. Per primary medical team patient did not have any witnessed seizure this admission. CT head done during this admission today reported no hydrocephalus, ventricles within normal limits and both old and new SUPERVISOR POST WAVE shunt tubing noted. At present patient is awake, follows commands, was able to tell his name, and that he was in hospital but not oriented to time. Per documentation patient had NCSE in May 2021, was on Vimpat, but it was discontinued as there was no evidence of recurrent seizures in July 2021 by Neurology at [facility], per daughter patient was on Dilantin for 31 yrs. Per daughter patient had seizures in the past and also felt he had staring episodes this morning. Per daughter patient has been essentially bed bound in [place] since May 2021 but prior to that was independent. MEDICATIONS: Current Facility-Administered Medications Medication Dose Route Frequency Provider Last Rate Last Admin warfarin (COUMADIN) tablet 7.5 mg 7.5 mg Oral Once Andres Sheridan MD levETIRAcetam (KEPPRA) 750 mg in sodium chloride 0.9 % 100 mL IVPB 750 mg IntraVENous BID Santino Barreto MD ipratropium-albuterol (DUONEB) nebulizer solution 1 ampule 1 ampule Inhalation 4x Daily PRN May Cash MD baclofen (LIORESAL) tablet 10 mg 10 mg Oral TID May Cash MD 10 mg at 10/26/21 1445 bumetanide (BUMEX) tablet 2 mg 2 mg Oral Daily May Cash MD 2 mg at 10/26/21 0839 potassium chloride (KLOR-CON M) extended release tablet 20 mEq 20 mEq Oral Daily May Cash MD 20 mEq at 10/26/21 0840 sodium chloride flush 0.9 % injection 5-40 mL 5-40 mL IntraVENous 2 times per day May Cash MD 10 mL at 10/26/21 0843 sodium chloride flush 0.9 % injection 5-40 mL 5-40 mL IntraVENous PRN May Cash MD 0.9 % sodium chloride infusion IntraVENous PRN May Cash MD potassium chloride (KLOR-CON M) extended release tablet 40 mEq 40 mEq Oral PRN May Cash MD Or potassium bicarb-citric acid (EFFER-K) effervescent tablet 40 mEq 40 mEq Oral PRN May Cash MD Or potassium chloride 10 mEq/100 mL IVPB (Peripheral Line) 10 mEq IntraVENous PRN May Cash MD ondansetron (ZOFRAN-ODT) disintegrating tablet 4 mg 4 mg Oral Q8H PRN May Cash MD Or ondansetron (ZOFRAN) injection 4 mg 4 mg IntraVENous Q6H PRN May Cash MD polyethylene glycol (GLYCOLAX) packet 17 g 17 g Oral Daily PRN May Cash MD acetaminophen (TYLENOL) tablet 650 mg 650 mg Oral Q6H PRN May Cash MD Or acetaminophen (TYLENOL) suppository 650 mg 650 mg Rectal Q6H PRN May Cash MD aluminum & magnesium hydroxide-simethicone (MAALOX) 200-200-20 MG/5ML suspension 30 mL 30 mL Oral Q6H PRN May Cash MD enoxaparin (LOVENOX) injection 105 mg 1 mg/kg SubCUTAneous BID Mya Cash MD 105 mg at 10/26/21 0839 TECHNICAL ASPECTS: This routine scalp EEG study with video was carried out at [facility]. Scalp electrodes were positioned in person by an medical office technologist, following patient education, according to the 10-20 International system of electrode placement and maintained for integrity and quality of the recording. EEG data with video was recorded continuously and digitally stored. The medical office technologist reviewed all automated detections and manual events and prepared the data for archiving and provider review. Referential and bipolar montages were used for review. TECHNOLOGIST NOTES: No skull defects or scalp edema were present. BACKGROUND ACTIVITY & SLOWING: Posterior background activity: An organized and well-modulated 8-9 Hz, 20-40 uV rhythm was seen symmetrically over the posterior head regions bilaterally. Beta range: Fronto-centrally predominant beta range activity (15-25 Hz, 10-20 uV) was seen. Sleep: Drowsiness was seen as characterized by attenuation of the background rhythms and appearance of slow roving eye movement artifacts. Normal Variants: No normal vari (more content not included)... [employer] Work Phone: [facility] Work Phone: No Panel Informationon 10-26 Radiology Study observation (narrative) [facility] Work Phone: Prothrombin Timeon 2 INR 1.9 High 0.9-1.1 [facility] Comment on above: Result Comment: Harry mmended Anticoagulant Therapy: SEE BELOW ----- INR of 2.0 - 3.0 : - Prophylaxis of Venous Thrombosis (high-risk surgery) - Treatment of Venous Thrombosis - Treatment of Pulmonary Embolism (Includes tissue heart valves, Acute Myocardial Infarction to prevent systemic embolism, Valvular Heart Disease, and Atrial Fibrillation) ----- INR of 2.5 - 3.5 : - Mechanical Prosthetic Valves (high risk) - If oral anticoagulant therapy is used to prevent Myocardial Infarction Performed By: #### C OVAG #### [facility] [address] [place] [address] PT Coag (PPP) [Time] 19.7 s High 9.0-12.0 [facility] Comment on above: Result Comment: . Performed By: #### C OVAG #### [facility] [address] [place] [address] Protime-INRon 10-26-2021 INR Coag (Bld) [Relative time] 1.9 {INR} High [facility] Work Phone: Comment on above: Recommended Anticoag ulant Therapy: SEE BELOW ----- INR of 2.0 - 3.0 : - Prophylaxis of Venous Thrombosis (high-risk surgery) - Treatment of Venous Thrombosis - Treatment of Pulmonary Embolism (Includes tissue heart valves, Acute Myocardial Infarction to prevent systemic embolism, Valvular Heart Disease, and Atrial Fibrillation) ----- INR of 2.5 - 3.5 : - Mechanical Prosthetic Valves (high risk) - If oral anticoagulant therapy is used to prevent Myocardial Infarction Interpretation and review of laboratory results Abnormal [facility] Work Phone: PT Coag (PPP) [Time] 19.7 s High 9.0 - 12.0 s [facility] Work Phone: Comment on above: . Test Performed by [facility], [address] [place], [place] [address] [facility] Work Phone: CA 19-9on 10-25-2021 CA 19-9 17 U/mL Normal <=35 [facility] Work Phone: Comment on above: INTERPRETIVE INFORMA TION: Cancer Antigen-GI (CA 19-9) This test uses Kimberley CA 19-9 electrochemiluminescent immunoassay. Results obtained with different test methods or kits cannot be used interchangeably. CA 19-9 value is useful in monitoring pancreatic, hepatobiliary, gastric, hepatocellular, and colorectal cancer. CA 19-9 value, regardless of level, should not be interpreted as absolute evidence of the presence or absence of malignant disease. Performed By: [email or web address] [address] [place] [address] [employer] Machine Operator: Quiana Castro MD Result Comment: INTE RPRETIVE INFORMATION: Cancer Antigen-GI (CA 19-9) This test uses Kimberley CA 19-9 electrochemiluminescent immunoassay. Results obtained with different test methods or kits cannot be used interchangeably. CA 19-9 value is useful in monitoring pancreatic, hepatobiliary, gastric, hepatocellular, and colorectal cancer. CA 19-9 value, regardless of level, should not be interpreted as absolute evidence of the presence or absence of malignant disease. Performed By: [email or web address] [address] [place] [address] [employer] Machine Operator: Quiana Castro MD Performed By: #### C OVAG #### [facility] [address] [place] [address] Cancer Antigen 19-9on 2021 [facility] Work Phone: Prothrombin Timeon INR 1.5 High 0.9-1.1 [facility] Comment on above: Result Comment: Harry mmended Anticoagulant Therapy: SEE BELOW ----- INR of 2.0 - 3.0 : - Prophylaxis of Venous Thrombosis (high-risk surgery) - Treatment of Venous Thrombosis - Treatment of Pulmonary Embolism (Includes tissue heart valves, Acute Myocardial Infarction to prevent systemic embolism, Valvular Heart Disease, and Atrial Fibrillation) ----- INR of 2.5 - 3.5 : - Mechanical Prosthetic Valves (high risk) - If oral anticoagulant therapy is used to prevent Myocardial Infarction Performed By: #### P T #### [facility] [address] [place] [address] PT Coag (PPP) [Time] 15.6 s High 9.0-12.0 [facility] Comment on above: Result Comment: . Performed By: #### P T #### [facility] [address] [place] [address] Protime-INRon 10-25-2021 INR Coag (Bld) [Relative time] 1.5 {INR} High [facility] Work Phone: Comment on above: Recommended Anticoag ulant Therapy: SEE BELOW ----- INR of 2.0 - 3.0 : - Prophylaxis of Venous Thrombosis (high-risk surgery) - Treatment of Venous Thrombosis - Treatment of Pulmonary Embolism (Includes tissue heart valves, Acute Myocardial Infarction to prevent systemic embolism, Valvular Heart Disease, and Atrial Fibrillation) ----- INR of 2.5 - 3.5 : - Mechanical Prosthetic Valves (high risk) - If oral anticoagulant therapy is used to prevent Myocardial Infarction Interpretation and review of laboratory results Abnormal [facility] Work Phone: PT Coag (PPP) [Time] 15.6 s High 9.0 - 12.0 s [facility] Work Phone: Comment on above: . Test Performed by [facility], [address] [place], [place] [address] [facility] Work Phone: B-2 Glycoprotein (IGA)on Beta-2 Glyco 1 IgA <2.0 U/mL [facility] Work Phone: Comment on above: Interpretive Informa tion: Results equal to or greater than 20 U/mL = POSITIVE Results less than 20 U/mL = NEGATIVE B2 Glycoprotein I (IgM) Abon 10-24-2021 Beta-2 Glyco 1 IgM <1.5 U/mL [facility] Work Phone: Comment on above: Interpretive Informa tion: Results equal to or greater than 20 U/mL = POSITIVE Results less than 20 U/mL = NEGATIVE B2 Glycoprotein I Igg Abon 0 10-24-2021 Beta-2 Glyco 1 IgG <1.4 U/mL [facility] Work Phone: Comment on above: Interpretive Informa tion: Results equal to or greater than 20 U/mL = POSITIVE Results less than 20 U/mL = NEGATIVE Basic Metabolic Panelon 10-06 Anion gap [Moles/Vol] 8 mmol/L Normal 3-13 [facility] Comment on above: Performed By: #### C A19O, LUPUS #### The performing lab is in the report. #### NSEO #### [facility] #### HEMDF, LDH3, BMP3, MG3, PT, CEA2 #### [facility] [address] [place] [address] #### B2GPM, B2GPA, B2GPG #### [address] Calcium [Mass/Vol] 8.8 mg/dL Normal 8.4-10.4 [facility] Comment on above: Performed By: #### C A19O, LUPUS #### The performing lab is in the report. #### NSEO #### [facility] #### HEMDF, LDH3, BMP3, MG3, PT, CEA2 #### [address] [place] #### B2GPM, B2GPA, B2GPG #### [address] CO2 [Moles/Vol] 25 mmol/L Normal 22-30 [facility] Comment on above: Performed By: #### C A19O, LUPUS #### The performing lab is in the report. #### NSEO #### [facility] #### HEMDF, LDH3, BMP3, MG3, PT, CEA2 #### [address] [place] [address] #### B2GPM, B2GPA, B2GPG #### [address] Creatinine [Mass/Vol] 0.74 mg/dL Normal 0.52-1.25 [facility] Comment on above: Performed By: #### C A19O, LUPUS #### The performing lab is in the report. #### NSEO #### [facility] #### HEMDF, LDH3, BMP3, MG3, PT, CEA2 #### [address] [place] [address] #### B2GPM, B2GPA, B2GPG #### [address] eGFR OTHER > 90.0 Normal >60 [facility] Comment on above: Result Comment: KDIG O guidelines provide the following GFR categories: Stage GFR(ml/min/1.73 m2) Terms G1 >=90 Normal or high G2 60-89 Mildly decreased* G3a 45-59 Mildly to moderately decreased G3b 30-44 Moderately to severely decreased G4 15-29 Severely decreased G5 <15 Kidney failure *Relative to young adult level. In the absence of evidence of kidney damage, neither GFR category G1 nor G2 fulfill the criteria for CKD. The CKD-EPI equation is validated in individuals 18 years of age and older. Currently the best equation for estimating glomerular filtration rate (GFR) from serum creatinine in children is the Bedside Medina equation. It is less accurate in patients with extremes of muscle mass, restriction of dietary protein, ingestion of creatine, extra-renal metabolism of creatinine, or treatment with medications that affect renal tubular creatinine secretion. Performed By: #### C Lisseth LUPUS #### The performing lab is in the report. #### NSEO #### [facility] #### HEMDF, LDH3, BMP3, MG3, PT, CEA2 #### [facility] [address] [place] [address] #### B2GPM, B2GPA, B2GPG #### [facility] [address] [address] GFR/1.73 sq M.predicted among blacks MDRD (S/P/Bld) [Vol rate/Area] mL/min/{1.73_m2} Normal >60 [facility] Comment on above: Performed By: #### C A19O, LUPUS #### The performing lab is in the report. #### NSEO #### [facility] #### HEMDF, LDH3, BMP3, MG3, PT, CEA2 #### [facility] [address] [place] [address] #### B2GPM, B2GPA, B2GPG #### [address] [address] Glucose [Mass/Vol] 116 mg/dL High 70-100 [facility] Comment on above: Performed By: #### C A19O, LUPUS #### The performing lab is in the report. #### NSEO #### [facility] #### HEMDF, LDH3, BMP3, MG3, PT, CEA2 #### [facility] [address] [place] #### B2GPM, B2GPA, B2GPG #### [address] Urea nitrogen [Mass/Vol] 19 mg/dL High 7-17 [facility] Comment on above: Performed By: #### C A19O, LUPUS #### The performing lab is in the report. #### NSEO #### [facility] #### HEMDF, LDH3, BMP3, MG3, PT, CEA2 #### [place] [address] [place] #### B2GPM, B2GPA, B2GPG #### [address] Chloride [Moles/Vol] 107 mmol/L Normal 98-107 [facility] Comment on above: Performed By: #### C A19O, LUPUS #### The performing lab is in the report. #### NSEO #### [facility] #### HEMDF, LDH3, BMP3, MG3, PT, CEA2 #### [facility] [address] [place] #### B2GPM, B2GPA, B2GPG #### [address] Potassium [Moles/Vol] 3.9 mmol/L Normal 3.5-5.1 [facility] Comment on above: Performed By: #### C A19O, LUPUS #### The performing lab is in the report. #### NSEO #### [facility] #### HEMDF, LDH3, BMP3, MG3, PT, CEA2 #### [facility] [address] [place] #### B2GPM, B2GPA, B2GPG #### [address] Sodium [Moles/Vol] 140 mmol/L Normal 135-145 [facility] Comment on above: Performed By: #### C A19O, LUPUS #### The performing lab is in the report. #### NSEO #### [facility] #### HEMDF, LDH3, BMP3, MG3, PT, CEA2 #### [facility] [address] [place] [address] #### B2GPM, B2GPA, B2GPG #### [facility] [address] [place] [address] Anion gap [Moles/Vol] 8 mmol/L 3 - 13 mmol/L [facility] Calcium [Mass/Vol] 8.8 mg/dL 8.4 - 10. 4 mg/dL [facility] Chloride [Moles/Vol] 107 mmol/L 98 - 10 7 mmol/L [facility] CO2 [Moles/Vol] 25 mmol/L 22 - 30 mmol/L [facility] Creatinine [Mass/Vol] 0.74 mg/dL 0.52 - 1.25 mg/dL [facility] EGFR IF NonAfrican Tunisian >90.0 >60 mL/min [facility] Comment on above: KDIGO guidelines pro vide the following GFR categories: Stage GFR(ml/min/1.73 m2) Terms G1 >=90 Normal or high G2 60-89 Mildly decreased* G3a 45-59 Mildly to moderately decreased G3b 30-44 Moderately to severely decreased G4 15-29 Severely decreased G5 <15 Kidney failure *Relative to young adult level. In the absence of evidence of kidney damage, neither GFR category G1 nor G2 fulfill the criteria for CKD. The CKD-EPI equation is validated in individuals 18 years of age and older. Currently the best equation for estimating glomerular filtration rate (GFR) from serum creatinine in children is the Bedside Medina equation. It is less accurate in patients with extremes of muscle mass, restriction of dietary protein, ingestion of creatine, extra-renal metabolism of creatinine, or treatment with medications that affect renal tubular creatinine secretion. GFR/1.73 sq M.predicted among blacks MDRD (S/P/Bld) [Vol rate/Area] mL/min/{1.73_m2} >60 mL/min [facility] Glucose [Mass/Vol] 116 mg/dL High 70 - 100 mg/dL [facility] Interpretation and review of laboratory results Abnormal [facility] Potassium [Moles/Vol] 3.9 mmol/L 3.5 - 5.1 mmol/L [facility] Sodium [Moles/Vol] 140 mmol/L 135 - 145 mmol/L [facility] Urea nitrogen (BldV) [Mass/Vol] 19 mg/dL High 7 - 17 mg/dL [facility] Test Performed by [facility], [address] [place] [address] [facility] Beta-2 Glycoprotein I IgAon 10-24-2021 Beta-2 Glycoprotein I IgA < 2.0 Normal [facility] Comment on above: Result Comment: Inte rpretive Information: Results equal to or greater than 20 U/mL = POSITIVE Results less than 20 U/mL = NEGATIVE Performed By: #### C OVAG #### [facility] [address] [place] [place] [address] Beta-2 Glycoprotein I IgGon 10-24-2021 Beta-2 Glycoprotein I IgG < 1.4 Normal [facility] Comment on above: Result Comment: Inte rpretive Information: Results equal to or greater than 20 U/mL = POSITIVE Results less than 20 U/mL = NEGATIVE Performed By: #### C OVAG #### [facility] [address] [place] [address] Beta-2 Glycoprotein I IgMon 10-24-2021 Beta-2 Glycoprotein I IgM < 1.5 Normal [facility] Comment on above: Result Comment: Inte rpretive Information: Results equal to or greater than 20 U/mL = POSITIVE Results less than 20 U/mL = NEGATIVE Performed By: #### C OVAG #### [facility] [address] [place] [address] No Panel Informationon 10-24 [facility] Test Performed by [facility], [address] [place] [id number] [facility] Work Phone: PROTEIN C FUNCTIONALon 10-24 Interpretation and review of laboratory results Abnormal [facility] Protein C-Functional 185 % High 83 - 168 % [facility] Comment on above: INTERPRETIVE INFORMA TION: Protein C, Functional Patients on warfarin may have decreased protein C values. Patients should be off warfarin therapy for two weeks for accurate measurement of protein C levels. Artificially increased functional protein C values may be due to heparin therapy or the presence of direct thrombin inhibitors or factor Xa inhibitors. Access complete set of age- and/or gender-specific reference intervals for this test in the [facility] ([facility]). Performed by [email or web address], [address] [facility],[place] [id number] [email or web address], Quiana Castro MD - Lab. Director Protein C, Functionalon 10-06 Protein C, Functional 185 % High 83-168 [facility] Comment on above: Result Comment: INTE RPRETIVE INFORMATION: Protein C, Functional Patients on warfarin may have decreased protein C values. Patients should be off warfarin therapy for two weeks for accurate measurement of protein C levels. Artificially increased functional protein C values may be due to heparin therapy or the presence of direct thrombin inhibitors or factor Xa inhibitors. Access complete set of age- and/or gender-specific reference intervals for this test in the [facility] ([facility]). Performed by [email or web address], [address] [facility] [place] [address] [email or web address], Quiana Castro MD - Lab. Director Performed By: #### P T #### [facility] [address] [place] [address] Protein S, Functionalon 10-06 Protein S, Functional 138 % Normal 66-[address] [facility] Comment on above: INTERPRETIVE INFORMA TION: Protein S, Functional Patients on warfarin may have decreased functional protein S values. Patients should be off warfarin therapy for two weeks for accurate measurement of functional protein S. Artificially increased functional protein S values may be due to heparin therapy or the presence of direct thrombin inhibitors or factor Xa inhibitors. Access complete set of age- and/or gender-specific reference intervals for this test in the [facility] ([facility]). Performed by [email or web address], [address] [facility] [place] [address] [email or web address], Quiana Castro MD - Lab. Director Result Comment: INTE RPRETIVE INFORMATION: Protein S, Functional Patients on warfarin may have decreased functional protein S values. Patients should be off warfarin therapy for two weeks for accurate measurement of functional protein S. Artificially increased functional protein S values may be due to heparin therapy or the presence of direct thrombin inhibitors or factor Xa inhibitors. Access complete set of age- and/or gender-specific reference intervals for this test in the [facility] ([facility]). Performed by [email or web address], [address] [place] [id number] [email or web address], Quiana Castro MD - Lab. Director Performed By: #### P T #### [facility] [address] [place] [address] Prothrombin Timeon 2 INR 1.2 High 0.9-1.1 [facility] Comment on above: Result Comment: Harry mmended Anticoagulant Therapy: SEE BELOW ----- INR of 2.0 - 3.0 : - Prophylaxis of Venous Thrombosis (high-risk surgery) - Treatment of Venous Thrombosis - Treatment of Pulmonary Embolism (Includes tissue heart valves, Acute Myocardial Infarction to prevent systemic embolism, Valvular Heart Disease, and Atrial Fibrillation) ----- INR of 2.5 - 3.5 : - Mechanical Prosthetic Valves (high risk) - If oral anticoagulant therapy is used to prevent Myocardial Infarction Performed By: #### Eileen Montanez LUPUS #### The performing lab is in the report. #### NSEO #### [facility] #### HEMDF, LDH3, BMP3, MG3, PT, CEA2 #### [facility] [address] [place] [address] #### B2GPM, B2GPA, B2GPG #### [facility] [address] [address] PT Coag (PPP) [Time] 12.6 s High 9.0-12.0 [facility] Comment on above: Result Comment: . Performed By: #### C A19O LUPUS #### The performing lab is in the report. #### NSEO #### [facility] #### HEMDF, LDH3, BMP3, MG3, PT, CEA2 #### [facility] [address] [place] [address] #### B2GPM, B2GPA, B2GPG #### [address] [address] Protime-INRon 10-24-2021 INR Coag (Bld) [Relative time] 1.2 {INR} High [facility] Comment on above: Recommended Anticoag ulant Therapy: SEE BELOW ----- INR of 2.0 - 3.0 : - Prophylaxis of Venous Thrombosis (high-risk surgery) - Treatment of Venous Thrombosis - Treatment of Pulmonary Embolism (Includes tissue heart valves, Acute Myocardial Infarction to prevent systemic embolism, Valvular Heart Disease, and Atrial Fibrillation) ----- INR of 2.5 - 3.5 : - Mechanical Prosthetic Valves (high risk) - If oral anticoagulant therapy is used to prevent Myocardial Infarction Interpretation and review of laboratory results Abnormal [facility] PT Coag (PPP) [Time] 12.6 s High 9.0 - 12.0 s [facility] Comment on above: . Test Performed by [facility], [address] [facility] Basic Metabolic Panelon 10-05 Anion gap [Moles/Vol] 10 mmol/L Normal 3-13 [facility] Comment on above: Performed By: #### C A19O, LUPUS #### The performing lab is in the report. #### NSEO #### [facility] #### HEMDF, LDH3, BMP3, MG3, PT, CEA2 #### [facility] [address] [id number] #### B2GPM, B2GPA, B2GPG #### [address] [address] Calcium [Mass/Vol] 9.6 mg/dL Normal 8.4-10.4 [facility] Comment on above: Performed By: #### C A19O, LUPUS #### The performing lab is in the report. #### NSEO #### [facility] #### HEMDF, LDH3, BMP3, MG3, PT, CEA2 #### [facility] [address] [place] [id number] #### B2GPM, B2GPA, B2GPG #### [address] CO2 [Moles/Vol] 27 mmol/L Normal 22-30 [facility] Comment on above: Performed By: #### C A19O, LUPUS #### The performing lab is in the report. #### NSEO #### [facility] #### HEMDF, LDH3, BMP3, MG3, PT, CEA2 #### [facility] [address] [facility] [place] #### B2GPM, B2GPA, B2GPG #### [address] Glucose [Mass/Vol] 109 mg/dL High 70-100 [facility] Comment on above: Performed By: #### C A19O, LUPUS #### The performing lab is in the report. #### NSEO #### [facility] #### HEMDF, LDH3, BMP3, MG3, PT, CEA2 #### [place] [address] [address] [place] #### B2GPM, B2GPA, B2GPG #### [address] Urea nitrogen [Mass/Vol] 18 mg/dL High 7-17 [facility] Comment on above: Performed By: #### C A19O, LUPUS #### The performing lab is in the report. #### NSEO #### [facility] #### HEMDF, LDH3, BMP3, MG3, PT, CEA2 #### [address] [place] #### B2GPM, B2GPA, B2GPG #### [address] Creatinine [Mass/Vol] 0.82 mg/dL Normal 0.52-1.25 [facility] Comment on above: Performed By: #### C A19O, LUPUS #### The performing lab is in the report. #### NSEO #### [facility] #### HEMDF, LDH3, BMP3, MG3, PT, CEA2 #### [facility] [address] [place] [address] #### B2GPM, B2GPA, B2GPG #### [address] [phone] GFR/1.73 sq M.predicted among blacks MDRD (S/P/Bld) [Vol rate/Area] mL/min/{1.73_m2} Normal >60 [facility] Comment on above: Performed By: #### C A19O, LUPUS #### The performing lab is in the report. #### NSEO #### [facility] #### HEMDF, LDH3, BMP3, MG3, PT, CEA2 #### [facility] [address] [place] [address] #### B2GPM, B2GPA, B2GPG #### [address] [address] GFR/1.73 sq M.predicted among non-blacks MDRD (S/P/Bld) [Vol rate/Area] 89.9 mL/min/{1.73_m2} Normal >60 [facility] Comment on above: Result Comment: KDIG O guidelines provide the following GFR categories: Stage GFR(ml/min/1.73 m2) Terms G1 >=90 Normal or high G2 60-89 Mildly decreased* G3a 45-59 Mildly to moderately decreased G3b 30-44 Moderately to severely decreased G4 15-29 Severely decreased G5 <15 Kidney failure *Relative to young adult level. In the absence of evidence of kidney damage, neither GFR category G1 nor G2 fulfill the criteria for CKD. The CKD-EPI equation is validated in individuals 18 years of age and older. Currently the best equation for estimating glomerular filtration rate (GFR) from serum creatinine in children is the Bedside Medina equation. It is less accurate in patients with extremes of muscle mass, restriction of dietary protein, ingestion of creatine, extra-renal metabolism of creatinine, or treatment with medications that affect renal tubular creatinine secretion. Performed By: #### C A19O, LUPUS #### The performing lab is in the report. #### NSEO #### [facility] #### HEMDF, LDH3, BMP3, MG3, PT, CEA2 #### [facility] [address] [place] #### B2GPM, B2GPA, B2GPG #### [address] Chloride [Moles/Vol] 104 mmol/L Normal 98-107 [facility] Comment on above: Performed By: #### C A19O, LUPUS #### The performing lab is in the report. #### NSEO #### [facility] #### HEMDF, LDH3, BMP3, MG3, PT, CEA2 #### [place] [address] [place] [address] #### B2GPM, B2GPA, B2GPG #### [address] Potassium [Moles/Vol] 3.9 mmol/L Normal 3.5-5.1 [facility] Comment on above: Performed By: #### C A19O, LUPUS #### The performing lab is in the report. #### NSEO #### [facility] #### HEMDF, LDH3, BMP3, MG3, PT, CEA2 #### [place] [address] [place] [address] #### B2GPM, B2GPA, B2GPG #### [address] Sodium [Moles/Vol] 142 mmol/L Normal 135-145 [facility] Comment on above: Performed By: #### C A19O, LUPUS #### The performing lab is in the report. #### NSEO #### [facility] #### HEMDF, LDH3, BMP3, MG3, PT, CEA2 #### [place] [address] [place] [address] #### B2GPM, B2GPA, B2GPG #### [facility] [address] [address] Anion gap [Moles/Vol] 10 mmol/L 3 - 13 mmol/L [facility] Work Phone: Calcium [Mass/Vol] 9.6 mg/dL 8.4 - 10. 4 mg/dL [facility] Work Phone: [phone] Chloride [Moles/Vol] 104 mmol/L 98 - 10 7 mmol/L [facility] Work Phone: [phone] CO2 [Moles/Vol] 27 mmol/L 22 - 30 mmol/L [facility] Work Phone: [phone] Creatinine [Mass/Vol] 0.82 mg/dL 0.52 - 1.25 mg/dL [facility] Work Phone: EGFR IF NonAfrican Tunisian 89.9 mL/min >60 [facility] Work Phone: )[phone] Comment on above: KDIGO guidelines pro vide the following GFR categories: Stage GFR(ml/min/1.73 m2) Terms G1 >=90 Normal or high G2 60-89 Mildly decreased* G3a 45-59 Mildly to moderately decreased G3b 30-44 Moderately to severely decreased G4 15-29 Severely decreased G5 <15 Kidney failure *Relative to young adult level. In the absence of evidence of kidney damage, neither GFR category G1 nor G2 fulfill the criteria for CKD. The CKD-EPI equation is validated in individuals 18 years of age and older. Currently the best equation for estimating glomerular filtration rate (GFR) from serum creatinine in children is the Bedside Medina equation. It is less accurate in patients with extremes of muscle mass, restriction of dietary protein, ingestion of creatine, extra-renal metabolism of creatinine, or treatment with medications that affect renal tubular creatinine secretion. GFR/1.73 sq M.predicted among blacks MDRD (S/P/Bld) [Vol rate/Area] mL/min/{1.73_m2} >60 mL/min [facility] Work Phone: Glucose [Mass/Vol] 109 mg/dL High 70 - 100 mg/dL [facility] Work Phone: [phone] Interpretation and review of laboratory results Abnormal [facility] Work Phone: [phone] Potassium [Moles/Vol] 3.9 mmol/L 3.5 - 5.1 mmol/L [facility] Work Phone: [phone] Sodium [Moles/Vol] 142 mmol/L 135 - 145 mmol/L [facility] Work Phone: [phone] Urea nitrogen (BldV) [Mass/Vol] 18 mg/dL High 7 - 17 mg/dL [facility] Work Phone: [phone] CBC with Auto Differentialon 10-23-2021 Absolute Baso # 0.1 10*3/uL 0.0 - 0.2 10*3/uL [facility] Work Phone: [phone] Absolute Neut # 6.6 10*3/uL 1.8 - 7.0 10*3/uL [facility] Work Phone: [phone] Basophils/100 WBC (Bld) 1.1 % 0.0 - 2.0 % [facility] Work Phone: [phone] Eosinophils (Bld) [#/Vol] 0.4 10*3/uL 0.0 - 0.5 10*3/uL [facility] Work Phone: [phone] Eosinophils/100 WBC (Bld) 3.9 % 1.0 - 6.0 % [facility] Work Phone: [phone] Granulocytes/100 WBC (Bld) 64.0 % 40.0 - 80.0 % [facility] Work Phone: [phone] Hematocrit (Bld) [Volume fraction] 35.1 % Low 40.0 - 52.0 % [facility] Work Phone: [phone] Hemoglobin (Bld) [Mass/Vol] 11.6 g/dL Low 13.0 - 18.0 g/dL [facility] Work Phone: [phone] Interpretation and review of laboratory results Abnormal [facility] Work Phone: [phone] Lymphocytes (Bld) [#/Vol] 2.6 10*3/uL 1.0 - 4.3 10*3/uL [facility] Work Phone: [phone] Lymphocytes/100 WBC (Bld) 25.0 % 20.0 - 40.0 % [facility] Work Phone: [phone] MCH (RBC) [Entitic mass] 28.4 pg 26.0 - 34.0 pg [facility] Work Phone: 1() MCHC (RBC) [Mass/Vol] 33.1 % 32.0 - 36.0 % [facility] Work Phone: 1() MCV (RBC) [Entitic vol] 85.9 fL 80.0 - 98.0 fL [facility] Work Phone: () Monocytes (Bld) [#/Vol] 0.6 10*3/uL 0.0 - 0.8 10*3/uL [facility] Work Phone: [phone] Monocytes/100 WBC (Bld) 6.0 % 2.0 - 10.0 % [facility] Work Phone: 1() Platelet distribution width (Bld) [Ratio] 17.4 % High 11.5 - 14.5 % [facility] Work Phone: 1() Platelet mean volume (Bld) [Entitic vol] 8.1 fL 7.4 - 12.4 fL [facility] Work Phone: 1() Comment on above: MPV is a calculated measurement using platelet volume ratio. Platelets (Bld) [#/Vol] 450 10*3/uL High 140 - 440 10*3/uL [facility] Work Phone: 1() RBC (Bld) [#/Vol] 4.08 10*6/uL Low 4.40 - 5.9 0 10*6/uL [facility] Work Phone: () [phone] WBC (Bld) [#/Vol] 10.3 10*3/uL 3.6 - 10.7 10*3/uL [facility] Work Phone: 1() Test Performed by [facility], [address] [place], [place] [id number] [place] [address] LAB [facility] Work Phone: [phone] CEAon 10-23-2021 CEA 0.8 ng/mL 0.0 - 3.0 ng/mL [facility] Work Phone: [phone] Test Performed by [facility], [address] [place], [place] [id number] [place] [address] LAB [facility] Work Phone: [phone] Carcinoembryonic Agon 2021 Carcinoembryonic Ag. 0.8 ng/mL Normal 0.0-3.0 [facility] Comment on above: Performed By: #### C A19O, LUPUS #### The performing lab is in the report. #### NSEO #### [facility] #### HEMDF, LDH3, BMP3, MG3, PT, CEA2 #### [facility] [address] [place] [address] #### B2GPM, B2GPA, B2GPG #### [address] Hemogram w/ Autodiffon 10-23 Abs Baso Cnt 0.1 10*3/uL Normal 0.0-0.2 [facility] Comment on above: Performed By: #### C A19O, LUPUS #### The performing lab is in the report. #### NSEO #### [facility] #### HEMDF, LDH3, BMP3, MG3, PT, CEA2 #### [facility] [address] [place] [address] #### B2GPM, B2GPA, B2GPG #### [address] Abs Neutrophile Cnt 6.6 10*3/uL Normal 1.8-7.0 [facility] Comment on above: Performed By: #### C A19O, LUPUS #### The performing lab is in the report. #### NSEO #### [facility] #### HEMDF, LDH3, BMP3, MG3, PT, CEA2 #### [facility] [address] [place] [address] #### B2GPM, B2GPA, B2GPG #### [address] Basophils/100 WBC (Bld) 1.1 % Normal 0.0-2.0 [facility] Comment on above: Performed By: #### C A19O, LUPUS #### The performing lab is in the report. #### NSEO #### [facility] #### HEMDF, LDH3, BMP3, MG3, PT, CEA2 #### [facility] [address] [place] [address] #### B2GPM, B2GPA, B2GPG #### [address] Eosinophils (Bld) [#/Vol] 0.4 10*3/uL Normal 0.0-0.5 [facility] Comment on above: Performed By: #### C A19O, LUPUS #### The performing lab is in the report. #### NSEO #### [facility] #### HEMDF, LDH3, BMP3, MG3, PT, CEA2 #### [address] [place], [place] #### B2GPM, B2GPA, B2GPG #### [address] Eosinophils/100 WBC (Bld) 3.9 % Normal 1.0-6.0 [facility] Comment on above: Performed By: #### C A19O, LUPUS #### The performing lab is in the report. #### NSEO #### [facility] #### HEMDF, LDH3, BMP3, MG3, PT, CEA2 #### [address] [place], [place] #### B2GPM, B2GPA, B2GPG #### [address] Erythrocyte distribution width (RBC) [Ratio] 17.4 % High 11.5-14.5 [facility] Comment on above: Performed By: #### C A19O, LUPUS #### The performing lab is in the report. #### NSEO #### [facility] #### HEMDF, LDH3, BMP3, MG3, PT, CEA2 #### [address] [place] #### B2GPM, B2GPA, B2GPG #### [address] Granulocytes/100 WBC (Bld) 64.0 % Normal 40.0-80.0 [facility] Comment on above: Performed By: #### C A19O, LUPUS #### The performing lab is in the report. #### NSEO #### [facility] #### HEMDF, LDH3, BMP3, MG3, PT, CEA2 #### [facility] [address] [place] #### B2GPM, B2GPA, B2GPG #### [address] Hematocrit (Bld) [Volume fraction] 35.1 % Low 40.0-52.0 [facility] Comment on above: Performed By: #### C A19O, LUPUS #### The performing lab is in the report. #### NSEO #### [facility] #### HEMDF, LDH3, BMP3, MG3, PT, CEA2 #### [facility] [address] [place] #### B2GPM, B2GPA, B2GPG #### [address] Hemoglobin (Bld) [Mass/Vol] 11.6 g/dL Low 13.0-18.0 [facility] Comment on above: Performed By: #### C A19O, LUPUS #### The performing lab is in the report. #### NSEO #### [facility] #### HEMDF, LDH3, BMP3, MG3, PT, CEA2 #### [facility] [address] [place] #### B2GPM, B2GPA, B2GPG #### [address] Lymphocytes (Bld) [#/Vol] 2.6 10*3/uL Normal 1.0-4.3 [facility] Comment on above: Performed By: #### C A19O, LUPUS #### The performing lab is in the report. #### NSEO #### [facility] #### HEMDF, LDH3, BMP3, MG3, PT, CEA2 #### [facility] [address] [place] [address] #### B2GPM, B2GPA, B2GPG #### [address] Lymphocytes/100 WBC (Bld) 25.0 % Normal 20.0-40.0 [facility] Comment on above: Performed By: #### C A19O, LUPUS #### The performing lab is in the report. #### NSEO #### [facility] #### HEMDF, LDH3, BMP3, MG3, PT, CEA2 #### [address] [place] [address] #### B2GPM, B2GPA, B2GPG #### [address] MCH (RBC) [Entitic mass] 28.4 pg Normal 26.0-34.0 [facility] Comment on above: Performed By: #### C A19O, LUPUS #### The performing lab is in the report. #### NSEO #### [facility] #### HEMDF, LDH3, BMP3, MG3, PT, CEA2 #### [address] [place] [address] #### B2GPM, B2GPA, B2GPG #### [address] MCHC 33.1 % Normal 32.0-36.0 [facility] Comment on above: Performed By: #### C A19O, LUPUS #### The performing lab is in the report. #### NSEO #### [facility] #### HEMDF, LDH3, BMP3, MG3, PT, CEA2 #### [place] [address] [place] #### B2GPM, B2GPA, B2GPG #### [address] MCV (RBC) [Entitic vol] 85.9 fL Normal 80.0-98.0 [facility] Comment on above: Performed By: #### C A19O, LUPUS #### The performing lab is in the report. #### NSEO #### [facility] #### HEMDF, LDH3, BMP3, MG3, PT, CEA2 #### [place] [address] [place] #### B2GPM, B2GPA, B2GPG #### [address] Monocytes (Bld) [#/Vol] 0.6 10*3/uL Normal 0.0-0.8 [facility] Comment on above: Performed By: #### C A19O, LUPUS #### The performing lab is in the report. #### NSEO #### [facility] #### HEMDF, LDH3, BMP3, MG3, PT, CEA2 #### [address] [place] #### B2GPM, B2GPA, B2GPG #### [address] Monocytes/100 WBC (Bld) 6.0 % Normal 2.0-10.0 [facility] Comment on above: Performed By: #### C A19O, LUPUS #### The performing lab is in the report. #### NSEO #### [facility] #### HEMDF, LDH3, BMP3, MG3, PT, CEA2 #### [address] [place] #### B2GPM, B2GPA, B2GPG #### [address] Platelet mean volume (Bld) [Entitic vol] 8.1 fL Normal 7.4-12.4 [facility] Comment on above: Result Comment: MPV is a calculated measurement using platelet volume ratio. Performed By: #### C A19O, LUPUS #### The performing lab is in the report. #### NSEO #### [facility] #### HEMDF, LDH3, BMP3, MG3, PT, CEA2 #### [facility] [address] [place] [address] #### B2GPM, B2GPA, B2GPG #### [address] [phone] Platelets (Bld) [#/Vol] 450 10*3/uL High 140-440 [facility] Comment on above: Performed By: #### C A19O, LUPUS #### The performing lab is in the report. #### NSEO #### [facility] #### HEMDF, LDH3, BMP3, MG3, PT, CEA2 #### [facility] [address] [place] [address] #### B2GPM, B2GPA, B2GPG #### [address] RBC (Bld) [#/Vol] 4.08 10*6/uL Low 4.40-5.90 [facility] Comment on above: Performed By: #### C A19O, LUPUS #### The performing lab is in the report. #### NSEO #### [facility] #### HEMDF, LDH3, BMP3, MG3, PT, CEA2 #### [facility] [address] [place] [address] #### B2GPM, B2GPA, B2GPG #### [address] [phone] WBC (Bld) [#/Vol] 10.3 10*3/uL Normal 3.6-10.7 [facility] Comment on above: Performed By: #### C A19O, LUPUS #### The performing lab is in the report. #### NSEO #### [facility] #### HEMDF, LDH3, BMP3, MG3, PT, CEA2 #### [facility] [address] [place] [address] #### B2GPM, B2GPA, B2GPG #### [facility] [address] [place] [address] LDHon 10-23-2021 LDH 136 U/L Normal 120-246 [facility] Comment on above: Performed By: #### C A19O, LUPUS #### The performing lab is in the report. #### NSEO #### [facility] #### HEMDF, LDH3, BMP3, MG3, PT, CEA2 #### [facility] [address] [place] [address] #### B2GPM, B2GPA, B2GPG #### [facility] [address] [place] [address] Lactate Dehydrogenaseon - LD 136 U/L 120 - 246 U/L [facility] Work Phone: MRI ABDOMEN WO CONTRASTon Patient Name: ANDREW SIFUENTES [facility] ACCESSION EXAM DATE/TIME PROCEDURE ORDERING PROVIDER [id number] 10/23/2021 11:08 EDT MRI Abdomen w/o Contrast [facility]ING SR[facility]AST[facility] CPT code 39869 Reason For Exam (MRI Abdomen w/o Contrast) Status of Liver Lesions. Report MRI ABDOMEN WITHOUT CONTRAST: CLINICAL INDICATION: Liver lesions on CT. TECHNIQUE: Coronal and transaxial fast spin density along with transaxial in phase and opposed phase gradient echo, fast T2 fat suppression sequences and diffusion-weighted sequences were formed through the abdomen with attention to the liver. COMPARISON: CT abdomen pelvis 10/22/2021. FINDINGS: Limitations: Lack of intravenous contrast, motion artifact on multiple sequences Hepatobiliary: Hepatic steatosis is present. Localized atrophy involving the left hepatic lobe with numerous T2 hyperintensities remaining in the residual parenchyma. Some of these T2 hyperintensities appear clustered. There is some degree of intrahepatic biliary ductal dilatation centrally in the left hepatic lobe. Multiple T2 hyperintensities are present in the right hepatic lobe measuring up to at least 3.4 x 2.3 cm in the posterior right hepatic lobe. A 2.5 x 1.8 cm T2 hyperintense lesion is present in the region of the caudate. Numerous additional smaller lesions of varying T2 hyperintensity and T2 intermediate signal are present. Status post cholecystectomy. No right intrahepatic ductal dilatation or dilatation of the common bile duct. Spleen: Appears within normal limits. Pancreas: 3 to 4 mm T2 hyperintensity in the uncinate, axial sequence 1001 image 21. Pancreas otherwise is fairly homogeneous without adjacent stranding. Adrenal glands: No discrete mass or nodule. Kidneys: No obstructive uropathy. Several small T2 hyperintensities. Additional findings: Visualized small bowel is not abnormally dilated. Few colonic diverticula present in the visualized portions of the colon. No suspicious bulky adenopathy. No significant ascites. Multilevel degenerative spondylosis with scoliotic curvature in the visualized spine Abdominal aorta is normal in caliber. Susceptibility artifact from IVC filter. IMPRESSION: 1. Limited examination due to patient motion artifact and lack of intravenous contrast. [facility] Report 2. Localized atrophy involving the left hepatic lobe with numerous T2 hyperintensities some of which appear clustered. Additionally there is some degree of mild left central intrahepatic biliary ductal dilatation. Recommend follow-up with MRCP/MRI, preferably with and without intravenous contrast if patient can tolerate. 3. Additional T2 hyperintensities in the right hepatic lobe some of which likely reflect simple cysts. Several of these demonstrate lower intermediate signal and are indeterminant. These should be reassessed on multiphase MRI or CT with and without intravenous contrast. 4. Solitary 3 to 4 mm T2 hyperintensity in the pancreas. This can be reassessed on multiphase imaging as well. Report Dictated on --- Final --- Dictating Physician: MD RHODES VLADIMIR Signed Date and Time: 10/23/2021 4:35 pm Signed by: MD RHODES VLADIMIR Transcribed Date and Time: 10/23/2021 4:36 [facility] Result, Unknown Prov ider - 10/23/2021 Patient Name: ANDREW SIFUENTES [facility] ACCESSION EXAM DATE/TIME PROCEDURE ORDERING PROVIDER [id number] 10/23/2021 11:08 EDT MRI Abdomen w/o Contrast [facility] SRIVASTAVA CPT code 08846 Reason For Exam (MRI Abdomen w/o Contrast) Status of Liver Lesions. Report MRI ABDOMEN WITHOUT CONTRAST: CLINICAL INDICATION: Liver lesions on CT. TECHNIQUE: Coronal and transaxial fast spin density along with transaxial in phase and opposed phase gradient echo, fast T2 fat suppression sequences and diffusion-weighted sequences were formed through the abdomen with attention to the liver. COMPARISON: CT abdomen pelvis 10/22/2021. FINDINGS: Limitations: Lack of intravenous contrast, motion artifact on multiple sequences Hepatobiliary: Hepatic steatosis is present. Localized atrophy involving the left hepatic lobe with numerous T2 hyperintensities remaining in the residual parenchyma. Some of these T2 hyperintensities appear clustered. There is some degree of intrahepatic biliary ductal dilatation centrally in the left hepatic lobe. Multiple T2 hyperintensities are present in the right hepatic lobe measuring up to at least 3.4 x 2.3 cm in the posterior right hepatic lobe. A 2.5 x 1.8 cm T2 hyperintense lesion is present in the region of the caudate. Numerous additional smaller lesions of varying T2 hyperintensity and T2 intermediate signal are present. Status post cholecystectomy. No right intrahepatic ductal dilatation or dilatation of the common bile duct. Spleen: Appears within normal limits. Pancreas: 3 to 4 mm T2 hyperintensity in the uncinate, axial sequence 1001 image 21. Pancreas otherwise is fairly homogeneous without adjacent stranding. Adrenal glands: No discrete mass or nodule. Kidneys: No obstructive uropathy. Several small T2 hyperintensities. Additional findings: Visualized small bowel is not abnormally dilated. Few colonic diverticula present in the visualized portions of the colon. No suspicious bulky adenopathy. No significant ascites. Multilevel degenerative spondylosis with scoliotic curvature in the visualized spine Abdominal aorta is normal in caliber. Susceptibility artifact from IVC filter. IMPRESSION: 1. Limited examination due to patient motion artifact and lack of intravenous contrast. [facility] Report 2. Localized atrophy involving the left hepatic lobe with numerous T2 hyperintensities some of which appear clustered. Additionally there is some degree of mild left central intrahepatic biliary ductal dilatation. Recommend follow-up with MRCP/MRI, preferably with and without intravenous contrast if patient can tolerate. 3. Additional T2 hyperintensities in the right hepatic lobe some of which likely reflect simple cysts. Several of these demonstrate lower intermediate signal and are indeterminant. These should be reassessed on multiphase MRI or CT with and without intravenous contrast. 4. Solitary 3 to 4 mm T2 hyperintensity in the pancreas. This can be reassessed on multiphase imaging as well. Report Dictated on --- Final --- Dictating Physician: MD RHODES VLADIMIR Signed Date and Time: 10/23/2021 4:35 pm Signed by: MD RHODES VLADIMIR Transcribed Date and Time: 10/23/2021 4:36 [facility] Work Phone: MRI ABDOMEN WO CONTRASTOrder ed By: Unknown Result on 10-23-2021 [facility] MRI Abdomen w/o Contraston 0 10-23-2021 MRI Abdomen w/o Contrast Patient Name: ANDREW SIFUENTES [facility] ACCESSION EXAM DATE/TIME PROCEDURE ORDERING PROVIDER [id number] 10/23/2021 11:08 EDT MRI Abdomen w/o Contrast SR[facility]ASTAVAWING CPT code 23970 Reason For Exam (MRI Abdomen w/o Contrast) Status of Liver Lesions. Report MRI ABDOMEN WITHOUT CONTRAST: CLINICAL INDICATION: Liver lesions on CT. TECHNIQUE: Coronal and transaxial fast spin density along with transaxial in phase and opposed phase gradient echo, fast T2 fat suppression sequences and diffusion-weighted sequences were formed through the abdomen with attention to the liver. COMPARISON: CT abdomen pelvis 10/22/2021. FINDINGS: Limitations: Lack of intravenous contrast, motion artifact on multiple sequences Hepatobiliary: Hepatic steatosis is present. Localized atrophy involving the left hepatic lobe with numerous T2 hyperintensities remaining in the residual parenchyma. Some of these T2 hyperintensities appear clustered. There is some degree of intrahepatic biliary ductal dilatation centrally in the left hepatic lobe. Multiple T2 hyperintensities are present in the right hepatic lobe measuring up to at least 3.4 x 2.3 cm in the posterior right hepatic lobe. A 2.5 x 1.8 cm T2 hyperintense lesion is present in the region of the caudate. Numerous additional smaller lesions of varying T2 hyperintensity and T2 intermediate signal are present. Status post cholecystectomy. No right intrahepatic ductal dilatation or dilatation of the common bile duct. Spleen: Appears within normal limits. Pancreas: 3 to 4 mm T2 hyperintensity in the uncinate, axial sequence 1001 image 21. Pancreas otherwise is fairly homogeneous without adjacent stranding. Adrenal glands: No discrete mass or nodule. Kidneys: No obstructive uropathy. Several small T2 hyperintensities. Additional findings: Visualized small bowel is not abnormally dilated. Few colonic diverticula present in the visualized portions of the colon. No suspicious bulky adenopathy. No significant ascites. Multilevel degenerative spondylosis with scoliotic curvature in the visualized spine Abdominal aorta is normal in caliber. Susceptibility artifact from IVC filter. IMPRESSION: 1. Limited examination due to patient motion artifact and lack of intravenous contrast. [facility] Report 2. Localized atrophy involving the left hepatic lobe with numerous T2 hyperintensities some of which appear clustered. Additionally there is some degree of mild left central intrahepatic biliary ductal dilatation. Recommend follow-up with MRCP/MRI, preferably with and without intravenous contrast if patient can tolerate. 3. Additional T2 hyperintensities in the right hepatic lobe some of which likely reflect simple cysts. Several of these demonstrate lower intermediate signal and are indeterminant. These should be reassessed on multiphase MRI or CT with and without intravenous contrast. 4. Solitary 3 to 4 mm T2 hyperintensity in the pancreas. This can be reassessed on multiphase imaging as well. Report Dictated on Final Dictating Physician: MD RHODES VLADIMIR Signed Date and Time: 10/23/2021 4:35 pm Signed by: MD RHODES VLADIMIR Transcribed Date and Time: 10/23/2021 4:36 Normal [facility] Magnesiumon 10-23-2021 Magnesium [Mass/Vol] 2.1 mg/dL Normal 1.6-2.3 [facility] Comment on above: Performed By: #### C A19O, LUPUS #### The performing lab is in the report. #### NSEO #### [facility] #### HEMDF, LDH3, BMP3, MG3, PT, CEA2 #### [facility] [address] [place] [address] #### B2GPM, B2GPA, B2GPG #### [facility] [address] [place] [address] Magnesium [Mass/Vol] 2.1 mg/dL 1.6 - 2 .3 mg/dL [facility] Work Phone: No Panel Informationon 10-23 Test Performed by [facility], [address], [place], [place] [address] [facility] Work Phone: Prothrombin Timeon 2 INR 1.1 Normal 0.9-1.1 [facility] Comment on above: Result Comment: Harry mmended Anticoagulant Therapy: SEE BELOW ----- INR of 2.0 - 3.0 : - Prophylaxis of Venous Thrombosis (high-risk surgery) - Treatment of Venous Thrombosis - Treatment of Pulmonary Embolism (Includes tissue heart valves, Acute Myocardial Infarction to prevent systemic embolism, Valvular Heart Disease, and Atrial Fibrillation) ----- INR of 2.5 - 3.5 : - Mechanical Prosthetic Valves (high risk) - If oral anticoagulant therapy is used to prevent Myocardial Infarction Performed By: #### C A19O, LUPUS #### The performing lab is in the report. #### NSEO #### [facility] #### HEMDF, LDH3, BMP3, MG3, PT, CEA2 #### [facility] [address] [place] [address] #### B2GPM, B2GPA, B2GPG #### [facility] [address] [place] [address] PT Coag (PPP) [Time] 12.2 s High 9.0-12.0 [facility] Comment on above: Result Comment: . Performed By: #### C A19O, LUPUS #### The performing lab is in the report. #### NSEO #### [facility] #### HEMDF, LDH3, BMP3, MG3, PT, CEA2 #### [facility] [address] [place] [address] #### B2GPM, B2GPA, B2GPG #### [facility] [address] [place] [address] Protime-INRon 10-23-2021 INR Coag (Bld) [Relative time] 1.1 {INR} [facility] Work Phone: Comment on above: Recommended Anticoag ulant Therapy: SEE BELOW ----- INR of 2.0 - 3.0 : - Prophylaxis of Venous Thrombosis (high-risk surgery) - Treatment of Venous Thrombosis - Treatment of Pulmonary Embolism (Includes tissue heart valves, Acute Myocardial Infarction to prevent systemic embolism, Valvular Heart Disease, and Atrial Fibrillation) ----- INR of 2.5 - 3.5 : - Mechanical Prosthetic Valves (high risk) - If oral anticoagulant therapy is used to prevent Myocardial Infarction Interpretation and review of laboratory results Abnormal [facility] Work Phone: PT Coag (PPP) [Time] 12.2 s High 9.0 - 12.0 s [facility] Work Phone: Comment on above: . Test Performed by [facility], [address] [place] [address] [facility] Work Phone: Basic Metabolic Panelon -05 14-2021 Calcium [Mass/Vol] 8.9 mg/dL Normal 8.4-10.4 [facility] Comment on above: Performed By: #### P T #### [address] [place] [address] Glucose [Mass/Vol] 110 mg/dL High 70-100 [facility] Comment on above: Performed By: #### P T #### [address] [place] [address] Urea nitrogen [Mass/Vol] 14 mg/dL Normal 7-17 [facility] Comment on above: Performed By: #### P T #### [place] [address] [place] [address] Anion gap [Moles/Vol] 7 mmol/L Normal 3-13 [facility] Comment on above: Performed By: #### P T #### [place] [address] [place] [address] CO2 [Moles/Vol] 26 mmol/L Normal 22-30 [facility] Comment on above: Performed By: #### P T #### [place] [address] [place] [address] Creatinine [Mass/Vol] 0.71 mg/dL Normal 0.52-1.25 [facility] Comment on above: Performed By: #### P T #### [facility] [address] [place] [address] eGFR OTHER > 90.0 Normal >60 [facility] Comment on above: Result Comment: KDIG O guidelines provide the following GFR categories: Stage GFR(ml/min/1.73 m2) Terms G1 >=90 Normal or high G2 60-89 Mildly decreased* G3a 45-59 Mildly to moderately decreased G3b 30-44 Moderately to severely decreased G4 15-29 Severely decreased G5 <15 Kidney failure *Relative to young adult level. In the absence of evidence of kidney damage, neither GFR category G1 nor G2 fulfill the criteria for CKD. The CKD-EPI equation is validated in individuals 18 years of age and older. Currently the best equation for estimating glomerular filtration rate (GFR) from serum creatinine in children is the Bedside Medina equation. It is less accurate in patients with extremes of muscle mass, restriction of dietary protein, ingestion of creatine, extra-renal metabolism of creatinine, or treatment with medications that affect renal tubular creatinine secretion. Performed By: #### P T #### [facility] [address] [place] [address] GFR/1.73 sq M.predicted among blacks MDRD (S/P/Bld) [Vol rate/Area] mL/min/{1.73_m2} Normal >60 [facility] Comment on above: Performed By: #### P T #### [facility] [address] [place] [address] Potassium [Moles/Vol] 3.8 mmol/L Normal 3.5-5.1 [facility] Comment on above: Performed By: #### P T #### [facility] [address] [place] [address] Chloride [Moles/Vol] 106 mmol/L Normal 98-107 [facility] Comment on above: Performed By: #### P T #### [facility] [address] [place] [address] Sodium [Moles/Vol] 139 mmol/L Normal 135-145 [facility] Comment on above: Performed By: #### P T #### [facility] [address] [place] [address] Anion gap [Moles/Vol] 7 mmol/L 3 - 13 mmol/L [facility] Calcium [Mass/Vol] 8.9 mg/dL 8.4 - 10. 4 mg/dL [facility] Chloride [Moles/Vol] 106 mmol/L 98 - 10 7 mmol/L [facility] CO2 [Moles/Vol] 26 mmol/L 22 - 30 mmol/L [facility] Creatinine [Mass/Vol] 0.71 mg/dL 0.52 - 1.25 mg/dL [facility] EGFR IF NonAfrican Tunisian >90.0 >60 mL/min [facility] Comment on above: KDIGO guidelines pro vide the following GFR categories: Stage GFR(ml/min/1.73 m2) Terms G1 >=90 Normal or high G2 60-89 Mildly decreased* G3a 45-59 Mildly to moderately decreased G3b 30-44 Moderately to severely decreased G4 15-29 Severely decreased G5 <15 Kidney failure *Relative to young adult level. In the absence of evidence of kidney damage, neither GFR category G1 nor G2 fulfill the criteria for CKD. The CKD-EPI equation is validated in individuals 18 years of age and older. Currently the best equation for estimating glomerular filtration rate (GFR) from serum creatinine in children is the Bedside Medina equation. It is less accurate in patients with extremes of muscle mass, restriction of dietary protein, ingestion of creatine, extra-renal metabolism of creatinine, or treatment with medications that affect renal tubular creatinine secretion. GFR/1.73 sq M.predicted among blacks MDRD (S/P/Bld) [Vol rate/Area] mL/min/{1.73_m2} >60 mL/min [facility] Glucose [Mass/Vol] 110 mg/dL High 70 - 100 mg/dL [facility] Interpretation and review of laboratory results Abnormal [facility] Potassium [Moles/Vol] 3.8 mmol/L 3.5 - 5.1 mmol/L [facility] Sodium [Moles/Vol] 139 mmol/L 135 - 145 mmol/L [facility] Urea nitrogen (BldV) [Mass/Vol] 14 mg/dL 7 - 17 mg/dL [facility] CBC with Auto Differentialon 10-22-2021 Absolute Baso # 0.1 10*3/uL 0.0 - 0.2 10*3/uL [facility] Absolute Neut # 6.0 10*3/uL 1.8 - 7.0 10*3/uL [facility] Basophils/100 WBC (Bld) 1.0 % 0.0 - 2.0 % [facility] Eosinophils (Bld) [#/Vol] 0.3 10*3/uL 0.0 - 0.5 10*3/uL [facility] Eosinophils/100 WBC (Bld) 3.0 % 1.0 - 6.0 % [facility] Granulocytes/100 WBC (Bld) 64.1 % 40.0 - 80.0 % [facility] Hematocrit (Bld) [Volume fraction] 33.4 % Low 40.0 - 52.0 % [facility] Hemoglobin (Bld) [Mass/Vol] 10.9 g/dL Low 13.0 - 18.0 g/dL [facility] Interpretation and review of laboratory results Abnormal [facility] Lymphocytes (Bld) [#/Vol] 2.5 10*3/uL 1.0 - 4.3 10*3/uL [facility] Lymphocytes/100 WBC (Bld) 26.3 % 20.0 - 40.0 % [facility] MCH (RBC) [Entitic mass] 28.2 pg 26.0 - 34.0 pg [facility] MCHC (RBC) [Mass/Vol] 32.7 % 32.0 - 36.0 % [facility] MCV (RBC) [Entitic vol] 86.3 fL 80.0 - 98.0 fL [facility] Monocytes (Bld) [#/Vol] 0.5 10*3/uL 0.0 - 0.8 10*3/uL [facility] Monocytes/100 WBC (Bld) 5.6 % 2.0 - 10.0 % [facility] Platelet distribution width (Bld) [Ratio] 17.1 % High 11.5 - 14.5 % [facility] Platelet mean volume (Bld) [Entitic vol] 7.6 fL 7.4 - 12.4 fL [facility] Comment on above: MPV is a calculated measurement using platelet volume ratio. Platelets (Bld) [#/Vol] 369 10*3/uL 140 - 440 10*3/uL [facility] RBC (Bld) [#/Vol] 3.87 10*6/uL Low 4.40 - 5.9 0 10*6/uL [facility] WBC (Bld) [#/Vol] 9.4 10*3/uL 3.6 - 10.7 10*3/uL [facility] Test Performed by [facility], [address], [place], [place] [address] [facility] CT Abdomen Pelvis Wo Umair johnston 10-22-2021 Patient Name: ANDREW LARSEN Computed Tomography ACCESSION EXAM DATE/TIME PROCEDURE ORDERING PROVIDER [id number] 10/22/2021 13:[address] Abdomen/Pelvis (No SRIVASTAVA, WING PO, No IV) CPT code 94844 Reason For Exam (CT Abdomen/Pelvis (No PO, No IV)) Status of retroperitoneal bleed; Does this patient have an IVC filter in place? Report CLINICAL INFORMATION: History of retroperitoneal hemorrhage. Assess position of inferior vena cava filter. CT abdomen and pelvis without intravenous contrast: CT abdomen: Volume acquisition CT images are obtained the diaphragm to the iliac crests without oral or intravenous contrast administration with axial, coronal and sagittal 2-D reconstructions. There is no related prior examination at this institution for comparison/correlation. Images through the lower chest demonstrate mild streaky parenchymal densities in both lower lobes most likely mild scarring or atelectasis. There are no other significant abnormal pleural or parenchymal densities. There is a single punctate posterior right mid renal calcified calyceal calculus. No other calcified renal or proximal ureteral calculi are identified on either side. There is no hydronephrosis or proximal ureteral dilatation on either side. The unenhanced kidneys are otherwise unremarkable in size, configuration and density. No inflammatory changes are seen in the perinephric fat. There is no evidence of retroperitoneal hematoma. The unenhanced liver is unremarkable in size, configuration and density. There are multiple round hypodense lesions scattered throughout the liver of variable size with the largest in the prior superior aspect of the right lobe measuring 3.3 cm consistent with a cyst. Most of the lesions are too small to characterize but are most likely small cysts or hemangiomas. No other mass or intrahepatic biliary dilatation is seen. The gallbladder is surgically absent. The unenhanced spleen and pancreas are unremarkable in size, configuration and density. There is no adrenal gland mass or enlargement. There is no abnormality of the unopacified stomach, small or large bowel. There is no ascites or retroperitoneal lymphadenopathy. No other focal mass, fluid collection or inflammatory process is seen. There is minimal atherosclerotic calcification of an otherwise normal abdominal aorta. There is an inferior vena cava filter in the suprarenal inferior vena cava. The tips of the stems extend beyond the lateral margin of the IVC. Computed Tomography Report There are degenerative changes of the lumbar spine. CT pelvis: Volume acquisition CT images were obtained from the iliac crests to the symphysis pubis without oral or intravenous contrast administration with axial, coronal and sagittal 2-D reconstructions. There is no related prior examination at this institution for comparison/correlation. No calcified calculi or dilatation is seen of either distal ureter. There is an incompletely distended unopacified urinary bladder without calcified calculus, wall thickening or other visible abnormality. The prostate is not enlarged. No focal mass or fluid collection is seen. There is no iliac or inguinal lymphadenopathy. There are scattered sigmoid colon diverticula without evidence of diverticulitis. No ascites or inflammatory changes are identified. IMPRESSION: 1. Single punctate nonobstructing calcified right renal calyceal calculus. 2. No evidence for other calcified collecting system calculi or obstruction. 3. No evidence of retroperitoneal hematoma. 4. 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 5. Multiple well-defined hypodense hepatic lesions many of which are too small to characterize most likely multiple small cysts. 6. Minimal sigmoid diverticulosis without evidence of diverticulitis. 7. No evidence of other mass, lymphadenopathy or inflammatory process. Report Dictated on --- Final --- Dictating Physician: MD MELTON HARLAN Signed Date and Time: 10/22/2021 2:36 pm Signed by: MD MELTON HARLAN Transcribed Date and Time: 10/22/2021 2:37 [facility] Humphrey Melton MD - 10/22/2021 Patient Name: ANDREW SIFUENTES Computed Tomography ACCESSION EXAM DATE/TIME PROCEDURE ORDERING PROVIDER [id number] 10/22/2021 13:[address] Abdomen/Pelvis (No SRIVASTAVA, WING PO, No IV) CPT code 32077 Reason For Exam (CT Abdomen/Pelvis (No PO, No IV)) Status of retroperitoneal bleed; Does this patient have an IVC filter in place? Report CLINICAL INFORMATION: History of retroperitoneal hemorrhage. Assess position of inferior vena cava filter. CT abdomen and pelvis without intravenous contrast: CT abdomen: Volume acquisition CT images are obtained the diaphragm to the iliac crests without oral or intravenous contrast administration with axial, coronal and sagittal 2-D reconstructions. There is no related prior examination at this institution for comparison/correlation. Images through the lower chest demonstrate mild streaky parenchymal densities in both lower lobes most likely mild scarring or atelectasis. There are no other significant abnormal pleural or parenchymal densities. There is a single punctate posterior right mid renal calcified calyceal calculus. No other calcified renal or proximal ureteral calculi are identified on either side. There is no hydronephrosis or proximal ureteral dilatation on either side. The unenhanced kidneys are otherwise unremarkable in size, configuration and density. No inflammatory changes are seen in the perinephric fat. There is no evidence of retroperitoneal hematoma. The unenhanced liver is unremarkable in size, configuration and density. There are multiple round hypodense lesions scattered throughout the liver of variable size with the largest in the prior superior aspect of the right lobe measuring 3.3 cm consistent with a cyst. Most of the lesions are too small to characterize but are most likely small cysts or hemangiomas. No other mass or intrahepatic biliary dilatation is seen. The gallbladder is surgically absent. The unenhanced spleen and pancreas are unremarkable in size, configuration and density. There is no adrenal gland mass or enlargement. There is no abnormality of the unopacified stomach, small or large bowel. There is no ascites or retroperitoneal lymphadenopathy. No other focal mass, fluid collection or inflammatory process is seen. There is minimal atherosclerotic calcification of an otherwise normal abdominal aorta. There is an inferior vena cava filter in the suprarenal inferior vena cava. The tips of the stems extend beyond the lateral margin of the IVC. Computed Tomography Report There are degenerative changes of the lumbar spine. CT pelvis: Volume acquisition CT images were obtained from the iliac crests to the symphysis pubis without oral or intravenous contrast administration with axial, coronal and sagittal 2-D reconstructions. There is no related prior examination at this institution for comparison/correlation. No calcified calculi or dilatation is seen of either distal ureter. There is an incompletely distended unopacified urinary bladder without calcified calculus, wall thickening or other visible abnormality. The prostate is not enlarged. No focal mass or fluid collection is seen. There is no iliac or inguinal lymphadenopathy. There are scattered sigmoid colon diverticula without evidence of diverticulitis. No ascites or inflammatory changes are identified. IMPRESSION: 1. Single punctate nonobstructing calcified right renal calyceal calculus. 2. No evidence for other calcified collecting system calculi or obstruction. 3. No evidence of retroperitoneal hematoma. 4. 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 5. Multiple well-defined hypodense hepatic lesions many of which are too small to characterize most likely multiple small cysts. 6. Minimal sigmoid diverticulosis without evidence of diverticulitis. 7. No evidence of other mass, lymphadenopathy or inflammatory process. Report Dictated on --- Final --- Dictating Physician: MD MELTON HARLAN Signed Date and Time: 10/22/2021 2:36 pm Signed by: MD MELTON HARLAN Transcribed Date and Time: 10/22/2021 2:37 [facility] Work Phone: CT Abdomen Pelvis Wo Contras tOrdered By: Humphrey Melton on 10-22-2021 [facility] Work Phone: CT Abdomen/Pelvis w/o Contra ston 10-22-2021 CT Abdomen/Pelvis w/o Contrast Patient Name: ANDREW SIFUENTES Computed Tomography ACCESSION EXAM DATE/TIME PROCEDURE ORDERING PROVIDER [id number] 10/22/2021 13:[address] Abdomen/Pelvis (No SRIVASTAVA, WING PO, No IV) CPT code 99409 Reason For Exam (CT Abdomen/Pelvis (No PO, No IV)) Status of retroperitoneal bleed; Does this patient have an IVC filter in place? Report CLINICAL INFORMATION: History of retroperitoneal hemorrhage. Assess position of inferior vena cava filter. CT abdomen and pelvis without intravenous contrast: CT abdomen: Volume acquisition CT images are obtained the diaphragm to the iliac crests without oral or intravenous contrast administration with axial, coronal and sagittal 2-D reconstructions. There is no related prior examination at this institution for comparison/correlation. Images through the lower chest demonstrate mild streaky parenchymal densities in both lower lobes most likely mild scarring or atelectasis. There are no other significant abnormal pleural or parenchymal densities. There is a single punctate posterior right mid renal calcified calyceal calculus. No other calcified renal or proximal ureteral calculi are identified on either side. There is no hydronephrosis or proximal ureteral dilatation on either side. The unenhanced kidneys are otherwise unremarkable in size, configuration and density. No inflammatory changes are seen in the perinephric fat. There is no evidence of retroperitoneal hematoma. The unenhanced liver is unremarkable in size, configuration and density. There are multiple round hypodense lesions scattered throughout the liver of variable size with the largest in the prior superior aspect of the right lobe measuring 3.3 cm consistent with a cyst. Most of the lesions are too small to characterize but are most likely small cysts or hemangiomas. No other mass or intrahepatic biliary dilatation is seen. The gallbladder is surgically absent. The unenhanced spleen and pancreas are unremarkable in size, configuration and density. There is no adrenal gland mass or enlargement. There is no abnormality of the unopacified stomach, small or large bowel. There is no ascites or retroperitoneal lymphadenopathy. No other focal mass, fluid collection or inflammatory process is seen. There is minimal atherosclerotic calcification of an otherwise normal abdominal aorta. There is an inferior vena cava filter in the suprarenal inferior vena cava. The tips of the stems extend beyond the lateral margin of the IVC. Computed Tomography Report There are degenerative changes of the lumbar spine. CT pelvis: Volume acquisition CT images were obtained from the iliac crests to the symphysis pubis without oral or intravenous contrast administration with axial, coronal and sagittal 2-D reconstructions. There is no related prior examination at this institution for comparison/correlation. No calcified calculi or dilatation is seen of either distal ureter. There is an incompletely distended unopacified urinary bladder without calcified calculus, wall thickening or other visible abnormality. The prostate is not enlarged. No focal mass or fluid collection is seen. There is no iliac or inguinal lymphadenopathy. There are scattered sigmoid colon diverticula without evidence of diverticulitis. No ascites or inflammatory changes are identified. IMPRESSION: 1. Single punctate nonobstructing calcified right renal calyceal calculus. 2. No evidence for other calcified collecting system calculi or obstruction. 3. No evidence of retroperitoneal hematoma. 4. 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 5. Multiple well-defined hypodense hepatic lesions many of which are too small to characterize most likely multiple small cysts. 6. Minimal sigmoid diverticulosis without evidence of diverticulitis. 7. No evidence of other mass, lymphadenopathy or inflammatory process. Report Dictated on Final Dictating Physician: MD MELTON HARLAN Signed Date and Time: 10/22/2021 2:36 pm Signed by: MD MELTON HARLAN Transcribed Date and Time: 10/22/2021 2:37 Normal [facility] Hemogram w/ Autodiffon 10-22 Abs Baso Cnt 0.1 10*3/uL Normal 0.0-0.2 [facility] Comment on above: Performed By: #### P T #### [facility] [address] [place] [address] Abs Neutrophile Cnt 6.0 10*3/uL Normal 1.8-7.0 [facility] Comment on above: Performed By: #### P T #### [facility] [address] [place] [address] Basophils/100 WBC (Bld) 1.0 % Normal 0.0-2.0 [facility] Comment on above: Performed By: #### P T #### [facility] [address] [place] [address] Eosinophils (Bld) [#/Vol] 0.3 10*3/uL Normal 0.0-0.5 [facility] Comment on above: Performed By: #### P T #### [facility] [address] [place] [address] Eosinophils/100 WBC (Bld) 3.0 % Normal 1.0-6.0 [facility] Comment on above: Performed By: #### P T #### [facility] [address] [place] [address] Erythrocyte distribution width (RBC) [Ratio] 17.1 % High 11.5-14.5 [facility] Comment on above: Performed By: #### P T #### [facility] [address] [place] [address] Granulocytes/100 WBC (Bld) 64.1 % Normal 40.0-80.0 [facility] Comment on above: Performed By: #### P T #### [facility] [address] [place] [address] Hematocrit (Bld) [Volume fraction] 33.4 % Low 40.0-52.0 [facility] Comment on above: Performed By: #### P T #### [facility] [address] [place] [address] Hemoglobin (Bld) [Mass/Vol] 10.9 g/dL Low 13.0-18.0 [facility] Comment on above: Performed By: #### P T #### [facility] [address] [place] [address] Lymphocytes (Bld) [#/Vol] 2.5 10*3/uL Normal 1.0-4.3 [facility] Comment on above: Performed By: #### P T #### [facility] [address] [place] [address] Lymphocytes/100 WBC (Bld) 26.3 % Normal 20.0-40.0 [facility] Comment on above: Performed By: #### P T #### [facility] [address] [place] [address] MCH (RBC) [Entitic mass] 28.2 pg Normal 26.0-34.0 [facility] Comment on above: Performed By: #### P T #### [facility] [address] [place] [address] MCHC 32.7 % Normal 32.0-36.0 [facility] Comment on above: Performed By: #### P T #### [facility] [address] [place] [address] MCV (RBC) [Entitic vol] 86.3 fL Normal 80.0-98.0 [facility] Comment on above: Performed By: #### P T #### [facility] [address] [place] [address] Monocytes (Bld) [#/Vol] 0.5 10*3/uL Normal 0.0-0.8 [facility] Comment on above: Performed By: #### P T #### [facility] [address] [place] [address] Monocytes/100 WBC (Bld) 5.6 % Normal 2.0-10.0 [facility] Comment on above: Performed By: #### P T #### [facility] [address] [place] [address] Platelet mean volume (Bld) [Entitic vol] 7.6 fL Normal 7.4-12.4 [facility] Comment on above: Result Comment: MPV is a calculated measurement using platelet volume ratio. Performed By: #### P T #### [facility] [address] [place] [address] Platelets (Bld) [#/Vol] 369 10*3/uL Normal 140-440 [facility] Comment on above: Performed By: #### P T #### [facility] [address] [place] [address] RBC (Bld) [#/Vol] 3.87 10*6/uL Low 4.40-5.90 [facility] Comment on above: Performed By: #### P T #### [facility] [address] [place] [address] WBC (Bld) [#/Vol] 9.4 10*3/uL Normal 3.6-10.7 [facility] Comment on above: Performed By: #### P T #### [facility] [address] [place] [address] Magnesiumon 10-22-2021 Magnesium [Mass/Vol] 2.0 mg/dL Normal 1.6-2.3 [facility] Comment on above: Performed By: #### P T #### [facility] [address] [place] [address] Magnesium [Mass/Vol] 2.0 mg/dL 1.6 - 2 .3 mg/dL [facility] No Panel Informationon 10-22 Radiology Study observation (narrative) [facility] Work Phone: Test Performed by [facility], [address] [place] [address] [facility] Prothrombin Timeon 2 INR 1.1 Normal 0.9-1.1 [facility] Comment on above: Result Comment: Harry mmended Anticoagulant Therapy: SEE BELOW ----- INR of 2.0 - 3.0 : - Prophylaxis of Venous Thrombosis (high-risk surgery) - Treatment of Venous Thrombosis - Treatment of Pulmonary Embolism (Includes tissue heart valves, Acute Myocardial Infarction to prevent systemic embolism, Valvular Heart Disease, and Atrial Fibrillation) ----- INR of 2.5 - 3.5 : - Mechanical Prosthetic Valves (high risk) - If oral anticoagulant therapy is used to prevent Myocardial Infarction Performed By: #### C A19O, LUPUS #### The performing lab is in the report. #### NSEO #### [facility] #### HEMDF, LDH3, BMP3, MG3, PT, CEA2 #### [facility] [place] [address] [place] [address] #### B2GPM, B2GPA, B2GPG #### [facility] [address] [id number] PT Coag (PPP) [Time] 11.8 s Normal 9.0-12.0 [facility] Comment on above: Result Comment: . Performed By: #### C A19O, LUPUS #### The performing lab is in the report. #### NSEO #### [facility] #### HEMDF, LDH3, BMP3, MG3, PT, CEA2 #### [facility] [address] [place] [address] #### B2GPM, B2GPA, B2GPG #### [facility] [address] [address] Protime-INRon 10-22-2021 INR Coag (Bld) [Relative time] 1.1 {INR} [facility] Work Phone: Comment on above: Recommended Anticoag ulant Therapy: SEE BELOW ----- INR of 2.0 - 3.0 : - Prophylaxis of Venous Thrombosis (high-risk surgery) - Treatment of Venous Thrombosis - Treatment of Pulmonary Embolism (Includes tissue heart valves, Acute Myocardial Infarction to prevent systemic embolism, Valvular Heart Disease, and Atrial Fibrillation) ----- INR of 2.5 - 3.5 : - Mechanical Prosthetic Valves (high risk) - If oral anticoagulant therapy is used to prevent Myocardial Infarction PT Coag (PPP) [Time] 11.8 s 9.0 - 12.0 s [employer] Work Phone: Comment on above: . Test Performed by [facility] [place] [facility], [address], [place], [place] [address] [facility] Work Phone: VL Ankle Art Brachial Indice s Extremity Bilateralon 10-22-2021 [facility] Ankle Brachial Index Report Patient DO GurpreetB: 1950 Study 10/21/2021 Name: Andrew Gonzalez (71yrs) Date: Age: 71 Account: [id number] Gender: M Loc: 444W BP: Ordering Physician: Shruthi Malik Computational Theory Scientist: Rody Cross RDMS, RVT Interpreting Physician: Carina Call Location: [facility] Indications: Foot wounds. Originally ordered as a full PVR. Ordering HOUSEKEEPING MANAGER had to modify the order to ABIs due to patient's acute DVTs in his legs Conclusions 1. Right resting CARMELLA is 1.27. PVR waveforms appear normal at rest in the right ankle. 2. Right resting TBI is 0.96. This is within the normal range. PVR waveforms appear normal at rest in the right 1st toe, right 2nd toe, right 3rd toe, right 4th toe, and right 5th toe. 3. Left resting CARMELLA is 1.29. This is within the normal range. PVR waveforms appear normal at rest in the left ankle. 4. Left resting TBI is 0.48. These findings are abnormal. PVR waveforms appear mildly attenuated in the left 4th toe and left 5th toe. History: Risk factors: Immobility. Age over 65 years. Study data: Ankle Brachial Index. Pressure measurement and pulse volume recording. Location: Bedside. Procedure: A vascular evaluation was performed with the patient in the supine position. Images were obtained using a [employer] vascular ultrasound machine. Arterial pressure indices: + + ----+ + +Location +Pressure (REST)*+Index (REST)+ + + ----+ + +R brachial +109 + + + + ----+ + +R DP +152 +1.25 + + + ----+ + +R PT +155 +1.27 + + + ----+ + +R great toe+117 +0.96 + + + ----+ + +L brachial +122 + + + + ----+ + +L DP +157 +1.29 + + + ----+ + +L PT +154 +1.26 + + + ----+ + +L great toe+59 +0.48 + + + ----+ + Prepared and electronically signed by Carina Call 10/22/2021 13:21 [facility] Carina Call MD - 10/22/2021 [facility] Ankle Brachial Index Report Patient DO GurpreetB: 1950 Study 10/21/2021 Name: Andrew Gonzalez (71yrs) Date: Age: 71 Account: [id number] Gender: M Loc: 444W BP: Ordering Physician: Shruthi Malik Computational Theory Scientist: Rody Cross RDMS RVT Interpreting Physician: Carina Call Location: [facility] Indications: Foot wounds. Originally ordered as a full PVR. Ordering HOUSEKEEPING MANAGER had to modify the order to ABIs due to patient's acute DVTs in his legs Conclusions 1. Right resting CARMELLA is 1.27. PVR waveforms appear normal at rest in the right ankle. 2. Right resting TBI is 0.96. This is within the normal range. PVR waveforms appear normal at rest in the right 1st toe, right 2nd toe, right 3rd toe, right 4th toe, and right 5th toe. 3. Left resting CARMELLA is 1.29. This is within the normal range. PVR waveforms appear normal at rest in the left ankle. 4. Left resting TBI is 0.48. These findings are abnormal. PVR waveforms appear mildly attenuated in the left 4th toe and left 5th toe. History: Risk factors: Immobility. Age over 65 years. Study data: Ankle Brachial Index. Pressure measurement and pulse volume recording. Location: Bedside. Procedure: A vascular evaluation was performed with the patient in the supine position. Images were obtained using a [employer] vascular ultrasound machine. Arterial pressure indices: + + ----+ + +Location +Pressure (REST)*+Index (REST)+ + + ----+ + +R brachial +109 + + + + ----+ + +R DP +152 +1.25 + + + ----+ + +R PT +155 +1.27 + + + ----+ + +R great toe+117 +0.96 + + + ----+ + +L brachial +122 + + + + ----+ + +L DP +157 +1.29 + + + ----+ + +L PT +154 +1.26 + + + ----+ + +L great toe+59 +0.48 + + + ----+ + Prepared and electronically signed by Carina Call 10/22/2021 13:21 [facility] Work Phone: [employer] Phone: Basic Metabolic Panelon 10-05 Calcium [Mass/Vol] 9.1 mg/dL Normal 8.4-10.4 [facility] Comment on above: Performed By: #### C OVAG #### [facility] [address] [place] [address] Anion gap [Moles/Vol] 6 mmol/L Normal 3-13 [facility] Comment on above: Performed By: #### C OVAG #### [facility] [address] [place] [address] CO2 [Moles/Vol] 29 mmol/L Normal 22-30 [facility] Comment on above: Performed By: #### C OVAG #### [facility] [address] [place] [address] Creatinine [Mass/Vol] 0.90 mg/dL Normal 0.52-1.25 [facility] Comment on above: Performed By: #### C OVAG #### [facility] [address] [place] [address] GFR/1.73 sq M.predicted among blacks MDRD (S/P/Bld) [Vol rate/Area] mL/min/{1.73_m2} Normal >60 [facility] Comment on above: Performed By: #### C OVAG #### [facility] [address] [place] [address] GFR/1.73 sq M.predicted among non-blacks MDRD (S/P/Bld) [Vol rate/Area] 86.6 mL/min/{1.73_m2} Normal >60 [facility] Comment on above: Result Comment: KDIG O guidelines provide the following GFR categories: Stage GFR(ml/min/1.73 m2) Terms G1 >=90 Normal or high G2 60-89 Mildly decreased* G3a 45-59 Mildly to moderately decreased G3b 30-44 Moderately to severely decreased G4 15-29 Severely decreased G5 <15 Kidney failure *Relative to young adult level. In the absence of evidence of kidney damage, neither GFR category G1 nor G2 fulfill the criteria for CKD. The CKD-EPI equation is validated in individuals 18 years of age and older. Currently the best equation for estimating glomerular filtration rate (GFR) from serum creatinine in children is the Bedside Medina equation. It is less accurate in patients with extremes of muscle mass, restriction of dietary protein, ingestion of creatine, extra-renal metabolism of creatinine, or treatment with medications that affect renal tubular creatinine secretion. Performed By: #### C OVAG #### [facility] [address] [place] [address] Glucose [Mass/Vol] 106 mg/dL High 70-100 [facility] Comment on above: Performed By: #### C OVAG #### [facility] [address] [place] [address] Urea nitrogen [Mass/Vol] 18 mg/dL High 7-17 [facility] Comment on above: Performed By: #### C OVAG #### [facility] [address] [place] [address] Chloride [Moles/Vol] 105 mmol/L Normal 98-107 [facility] Comment on above: Performed By: #### C OVAG #### [facility] [address] [place] [address] Potassium [Moles/Vol] 4.3 mmol/L Normal 3.5-5.1 [facility] Comment on above: Performed By: #### C OVAG #### [facility] [address] [place] [address] Sodium [Moles/Vol] 139 mmol/L Normal 135-145 [facility] Comment on above: Performed By: #### C OVAG #### [facility] [address] [place] [address] Anion gap [Moles/Vol] 6 mmol/L 3 - 13 mmol/L [facility] Calcium [Mass/Vol] 9.1 mg/dL 8.4 - 10. 4 mg/dL [facility] Chloride [Moles/Vol] 105 mmol/L 98 - 10 7 mmol/L [facility] CO2 [Moles/Vol] 29 mmol/L 22 - 30 mmol/L [facility] Creatinine [Mass/Vol] 0.9 mg/dL 0.52 - 1.25 mg/dL [facility] EGFR IF NonAfrican Tunisian 86.6 mL/min >60 [facility] Comment on above: KDIGO guidelines pro vide the following GFR categories: Stage GFR(ml/min/1.73 m2) Terms G1 >=90 Normal or high G2 60-89 Mildly decreased* G3a 45-59 Mildly to moderately decreased G3b 30-44 Moderately to severely decreased G4 15-29 Severely decreased G5 <15 Kidney failure *Relative to young adult level. In the absence of evidence of kidney damage, neither GFR category G1 nor G2 fulfill the criteria for CKD. The CKD-EPI equation is validated in individuals 18 years of age and older. Currently the best equation for estimating glomerular filtration rate (GFR) from serum creatinine in children is the Bedside Medina equation. It is less accurate in patients with extremes of muscle mass, restriction of dietary protein, ingestion of creatine, extra-renal metabolism of creatinine, or treatment with medications that affect renal tubular creatinine secretion. GFR/1.73 sq M.predicted among blacks MDRD (S/P/Bld) [Vol rate/Area] mL/min/{1.73_m2} >60 mL/min [facility] Glucose [Mass/Vol] 106 mg/dL High 70 - 100 mg/dL [facility] Interpretation and review of laboratory results Abnormal [facility] Potassium [Moles/Vol] 4.3 mmol/L 3.5 - 5.1 mmol/L [facility] Sodium [Moles/Vol] 139 mmol/L 135 - 145 mmol/L [facility] Urea nitrogen (BldV) [Mass/Vol] 18 mg/dL High 7 - 17 mg/dL [facility] Test Performed by [facility], [address], [place], [place] [id number] [place] [address] LAB [facility] C-Reactive Proteinon 022 CRP [Mass/Vol] 33.5 mg/L High 0.0-9.9 [facility] Comment on above: Result Comment: . Performed By: #### P T #### [facility] [address] [place] [address] CRP [Mass/Vol] 33.5 mg/L High 0.0 - 9.9 mg/L [facility] Comment on above: . Interpretation and review of laboratory results Abnormal [facility] Test Performed by [facility], [address], [address] LAB [facility] CR Calcaneus 2+ Views Lefton 10-21-2021 CR Calcaneus 2+ Views Left Patient Name: ANDREW SIFUENTES Diagnostic Radiology ACCESSION EXAM DATE/TIME PROCEDURE ORDERING PROVIDER [id number] 10/21/2021 15:30 EDT CR Calcaneus 2+ Views [id number] -SHRUTHI MALIK Left CPT code 96988 Reason For Exam (CR Calcaneus 2+ Views Left) unstageable ulceration possible osteomyelitis , 3 views please. Report Examination: CR Calcaneus 2+ Views Left Clinical: unstageable ulceration possible osteomyelitis , 3 views please. Comparison: None Findings: AP and lateral views of the left calcaneus. Osteopenia. 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 Degenerative changes along the os trigonum posteriorly. Atherosclerotic calcification posterior to the ankle. There is some calcification seen at the plantar aponeurotic origin. There is superficial soft tissue erosion seen along the medial aspect of the calcaneus. No deep subcutaneous air or foreign body is seen. There is very subtle surface irregularity seen along the posterior medial calcaneus which could be related to enthesophyte. A subtle surface erosion is not entirely excluded. No evidence of osteomyelitis is seen on the lateral projection. Midfoot demonstrates minimal osteoarthropathy. Impression: 1. Soft tissue fairly superficial ulceration along the posterior lateral aspect of the left calcaneus. 2. Nonspecific subtle surface irregularity along the posterior lateral calcaneus which could be related to enthesophytes. No definite acute osteomyelitis. If concern for early, superficial osteomyelitis, MRI or bone scan could be considered for more sensitive evaluation. 3. 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 Degenerative changes also seen along the os trigonum. Diagnostic Radiology Report Report Dictated on Final Dictating Physician: MD WONG ANTHONY J Signed Date and Time: 10/21/2021 4:31 pm Signed by: MD WONG ANTHONY J Transcribed Date and Time: 10/21/2021 4:33 Normal [facility] CR Chest 1 View Frontalon CR Chest 1 View Frontal Patient [id number]iology ACCESSION EXAM DATE/TIME PROCEDURE ORDERING PROVIDER [id number] 10/21/2021 08:16 EDT CR Chest 1 View Frontal [id number] -MAY CASH CPT code 44872 Reason For Exam (CR Chest 1 View Frontal) follow to VQ scan Report EXAMINATION: PORTABLE CHEST RADIOGRAPH CLINICAL INDICATION: Shortness of breath TECHNIQUE: Portable AP COMPARISON: 08/17/2014. FINDINGS/IMPRESSION: Support lines and tubes: Left IJ central line terminates in the right atrium. Heart/Mediastinum: Normal Lungs/Pleura: No focal consolidation. No pleural effusions. No pneumothorax. Bones: No acute osseous abnormality. Report Dictated on Final Dictating Physician: MD KHARI, VENUS RAMOS Signed Date and Time: 10/21/2021 8:32 am Signed by: MD KHARI, VENUS RAMOS Transcribed Date and Time: 10/21/2021 8:33 Normal [facility] D-Dimer, Innovanceon 022 D-Dimer, Innovance 1.51 mg/L High <0.19-0.50 [facility] Comment on above: Result Comment: Inno saba D-Dimer values of <0.50 mg/L FEU can be used in combination with a pre-test probability model (e.g. Well's) to exclude pulmonary embolism (PE) disease, as well as an aid in the diagnosis of deep vein thrombosis (DVT). Performed By: #### P T #### [facility] [address] [place] [address] D-Dimer, Quantitativeon 10-05 D-Dimer, Quant 1.51 mg/L High <0.19 - 0.50 [facility] Comment on above: [facility] D-Dimer va lues of <0.50 mg/L FEU can be used in combination with a pre-test probability model (e.g. Well's) to exclude pulmonary embolism (PE) disease, as well as an aid in the diagnosis of deep vein thrombosis (DVT). Interpretation and review of laboratory results Abnormal [facility] Test Performed by [facility], [address], [place], [place] [address] [facility] ED Provider Noteon 2 ED Provider Note [facility] ED EMERGENCY DEPARTMENT ENCOUNTER Pt Name: Andrew Sifuentes Birthdate 1950 Date of evaluation: 10/21/2021 Provider: Lisa Michelle, DO CHIEF COMPLAINT Chief Complaint Patient presents with ? Leg Swelling Blood clots HISTORY OF PRESENT ILLNESS (Location/Symptom, Timing/Onset, Context/Setting, Quality, Duration, Modifying Factors, Severity) Note limiting factors. I wore a procedure mask for the entirety of this encounter. DEVEN Sifuentes is a 71 y.o. male who presents to the emergency department with lower extremity edema. Patient is alert and oriented to person place on presentation to the emergency department, otherwise a fairly poor historian. Reports that he had an ultrasound imaging done of his leg in the outpatient setting, which demonstrated blood clot. He reports he is uncertain why this was done. Patient denies any pain, dyspnea, lightheadedness, dizziness at this time. Patient is largely bedbound at baseline. Review of patient's chart does demonstrate he is on Eliquis twice daily, history of DVT/PE. 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 REVIEW OF SYSTEMS (2+ for level 4; 10+ for level 5) Review of Systems All other systems reviewed and are negative. PAST MEDICAL HISTORY Past Medical History: Diagnosis Date ? ED (erectile dysfunction) ? Hemorrhoids ? Hydrocephalus, adult (HCC) ? Kidney stone ? Neuropathy ? SUPERVISOR POST WAVE (ventriculoperitoneal) shunt status SURGICAL HISTORY Past Surgical History: Procedure Laterality Date ? BRAIN SURGERY ? CHOLECYSTECTOMY ? COLONOSCOPY ? HERNIA REPAIR CURRENT MEDICATIONS Previous Medications APIXABAN (ELIQUIS) 5 MG TABS TABLET Take 5 mg by mouth 2 times daily BACLOFEN (LIORESAL) 10 MG TABLET TAKE 1 TABLET BY MOUTH 3 TIMES DAILY NEEDED FOR MUSCLE SPASMS BUMETANIDE (BUMEX) 2 MG TABLET TAKE 1 TABLET BY MOUTH DAILY ELASTIC BANDAGES & SUPPORTS (MEDICAL COMPRESSION STOCKINGS) MISC 1 each by Does not apply route daily as needed (swelling) FUROSEMIDE (LASIX) 40 MG TABLET Take 40 mg by mouth daily GINSENG 100 MG CAPS Take 100 mg by mouth daily HANDICAP PLACARD MISC by Does not apply route Duration: 5 years, 2023 POTASSIUM CHLORIDE (KLOR-CON M) 20 MEQ EXTENDED RELEASE TABLET TAKE 1 TABLET BY MOUTH DAILY ALLERGIES Alcohol and Morphine FAMILY HISTORY Family History Problem Relation Age of Onset ? Cancer Mother ? Heart Disease Father SOCIAL HISTORY Social History Socioeconomic History ? Marital status: Spouse name: None ? Number of children: None ? Years of education: None ? Highest education level: None Occupational History ? None Tobacco Use ? Smoking status: Former Smoker Packs/day: 1.00 Years: 10.00 Pack years: 10.00 Types: Cigars ? Smokeless tobacco: Never Used Vaping Use ? Vaping Use: Never used Substance and Sexual Activity ? Alcohol use: No ? Drug use: No ? Sexual activity: Not Currently Other Topics Concern ? None Social History Narrative ? None Social Determinants of Health Financial Resource Strain: ? Difficulty of Paying Living Expenses: Not on file Food Insecurity: ? Worried About Running Out of Food in the Last Year: Not on file ? Ran Out of Food in the Last Year: Not on file Transportation Needs: ? Lack of Transportation (Medical): Not on file ? Lack of Transportation (Non-Medical): Not on file Physical Activity: ? Days of Exercise per Week: Not on file ? Minutes of Exercise per Session: Not on file Stress: ? Feeling of Stress : Not on file Social Connections: ? Frequency of Communication with Friends and Family: Not on file ? Frequency of Social Gatherings with Friends and Family: Not on file ? Attends Oriental Orthodox Services: Not on file ? Active Member of Clubs or Organizations: Not on file ? Attends Club or Organization Meetings: Not on file ? Marital Status: Not on file Intimate Partner Violence: ? Fear of Current or Ex-Partner: Not on file ? Emotionally Abused: Not on file ? Physically Abused: Not on file ? Sexually Abused: Not on file Housing Stability: ? Unable to Pay for Housing in the Last Year: Not on file ? Number of Places Lived in the Last Year: Not on file ? Unstable Housing in the Last Year: Not on file SCREENINGS PHYSICAL EXAM (up to 7 for level 4, 8 or more for level 5) ED Triage Vitals BP Temp Temp Source Heart Rate Resp SpO2 Height Weight 10/21/21 0049 10/21/21 0049 10/21/21 0049 10/21/21 0049 10/21/21 0049 10/21/21 0049 10/21/21 0057 10/21/21 0057 (!) 133/91 97.7 ?F (36.5 ?C) Tympanic 84 16 94 % 5' 7 (1.702 m) 240 lb (108.9 kg) GENERAL APPEARANCE: Awake and alert, to person and place. Cooperative. No acute distress. HEAD: Normocephalic. Atraumatic. EYES: EOM's grossly intact. Sclera anicteric. ENT: Mucous membranes are moist. Tolerates saliva. No trismus. NECK: Supple. No meningismus. Trachea midline. HEART: RRR. Radial pulses 2+. LUNGS: Respirations (more content not included)... Normal [facility] Hemogramon 10-21-2021 Erythrocyte distribution width (RBC) [Ratio] 17.3 % High 11.5-14.5 [facility] Comment on above: Performed By: #### C OVAG #### [facility] [address] [place] [address] Hematocrit (Bld) [Volume fraction] 33.6 % Low 40.0-52.0 [facility] Comment on above: Performed By: #### C OVAG #### [facility] [address] [place] [address] Hemoglobin (Bld) [Mass/Vol] 10.9 g/dL Low 13.0-18.0 [facility] Comment on above: Performed By: #### C OVAG #### [facility] [address] [place] [address] MCH (RBC) [Entitic mass] 27.8 pg Normal 26.0-34.0 [facility] Comment on above: Performed By: #### C OVAG #### [facility] [address] [place] [address] MCHC 32.5 % Normal 32.0-36.0 [facility] Comment on above: Performed By: #### C OVAG #### [facility] [address] [place] [address] MCV (RBC) [Entitic vol] 85.6 fL Normal 80.0-98.0 [facility] Comment on above: Performed By: #### C OVAG #### [facility] [address] [place] [address] Platelet mean volume (Bld) [Entitic vol] 7.7 fL Normal 7.4-12.4 [facility] Comment on above: Result Comment: MPV is a calculated measurement using platelet volume ratio. Performed By: #### C OVAG #### [facility] [address] [place] [address] Platelets (Bld) [#/Vol] 404 10*3/uL Normal 140-440 [facility] Comment on above: Performed By: #### C OVAG #### [facility] [address] [place] [address] RBC (Bld) [#/Vol] 3.93 10*6/uL Low 4.40-5.90 [facility] Comment on above: Performed By: #### C OVAG #### [facility] [address] [place] [address] WBC (Bld) [#/Vol] 11.6 10*3/uL High 3.6-10.7 [facility] Comment on above: Performed By: #### C OVAG #### [facility] [address] [place] [address] Hemogram (CBC)on 10-21-2021 Hematocrit (Bld) [Volume fraction] 33.6 % Low 40.0 - 52.0 % [facility] Hemoglobin (Bld) [Mass/Vol] 10.9 g/dL Low 13.0 - 18.0 g/dL [facility] Interpretation and review of laboratory results Abnormal [facility] MCH (RBC) [Entitic mass] 27.8 pg 26.0 - 34.0 pg [facility] MCHC (RBC) [Mass/Vol] 32.5 % 32.0 - 36.0 % [facility] MCV (RBC) [Entitic vol] 85.6 fL 80.0 - 98.0 fL [facility] Platelet distribution width (Bld) [Ratio] 17.3 % High 11.5 - 14.5 % [facility] Platelet mean volume (Bld) [Entitic vol] 7.7 fL 7.4 - 12.4 fL [facility] Comment on above: MPV is a calculated measurement using platelet volume ratio. Platelets (Bld) [#/Vol] 404 10*3/uL 140 - 440 10*3/uL [facility] RBC (Bld) [#/Vol] 3.93 10*6/uL Low 4.40 - 5.9 0 10*6/uL [facility] WBC (Bld) [#/Vol] 11.6 10*3/uL High 3.6 - 10.7 10*3/uL [facility] Test Performed by [facility], [address] [place], [place], [place] [id number] [place] [address] LAB [facility] NM LUNG VENT/PERFUSION (VQ)o n 10-21-2021 Patient Name: ANDREW SIFUENTES Nuclear Medicine ACCESSION EXAM DATE/TIME PROCEDURE ORDERING PROVIDER [id number] 10/21/2021 07:55 EDT NM Pulmonary Perfusion [id number] AMBROSE MAY w/ Vent Aerosol CPT code 84915 A9567 Reason For Exam (NM Pulmonary Perfusion w/ Vent Aerosol) sob Report Study: VQ scan. CLINICAL INDICATION: Short of breath. Dose: Less than 2 mCi tc-99m DTPA, 5.0 mCi tc-99m [facility]AA TECHNIQUE: Planar imaging of the chest performed in multiple projections after ventilation agent and subsequently after perfusion agent administered. Comparison: Chest x-ray 10/21/2021 Findings: Routine imaging was performed and viewed on a computer workstation. Chest x-ray shows clear lungs. Segmental unmatched perfusion deficits visible on the right. . Impression: High likelihood ratio for pulmonary embolism. Findings typical for PE. Critical test result. Discussed with Dr. Carter. Report Dictated on --- Final --- Dictating Physician: MD HARVEY JOHN Signed Date and Time: 10/21/2021 8:48 am Signed by: MD HARVEY JOHN Transcribed Date and Time: 10/21/2021 8:49 [facility] Henry Harvey MD - 10/21/2021 Patient Name: ANDREW SIFUENTES Nuclear Medicine ACCESSION EXAM DATE/TIME PROCEDURE ORDERING PROVIDER [id number] 10/21/2021 07:55 EDT NM Pulmonary Perfusion [id number] BOGGSMAY w/ Vent Aerosol CPT code 53214 A9567 Reason For Exam (NM Pulmonary Perfusion w/ Vent Aerosol) sob Report Study: VQ scan. CLINICAL INDICATION: Short of breath. Dose: Less than 2 mCi tc-99m DTPA, 5.0 mCi tc-99m MAA TECHNIQUE: Planar imaging of the chest performed in multiple projections after ventilation agent and subsequently after perfusion agent administered. Comparison: Chest x-ray 10/21/2021 Findings: Routine imaging was performed and viewed on a computer workstation. Chest x-ray shows clear lungs. Segmental unmatched perfusion deficits visible on the right. . Impression: High likelihood ratio for pulmonary embolism. Findings typical for PE. Critical test result. Discussed with Dr. Carter. Report Dictated on --- Final --- Dictating Physician: MD HARVEY JOHN Signed Date and Time: 10/21/2021 8:48 am Signed by: MD HARVEY JOHN Transcribed Date and Time: 10/21/2021 8:49 [facility] Work Phone: NM LUNG VENT/PERFUSION (VQ)O rdered By: Henry Harvey on 10-21-2021 [facility] Work Phone: NM Pulmonary Perfusion w/ Ve nt Aerosol or Gason 10-21-2021 NM Pulmonary Perfusion w/ Vent Aerosol or Gas Patient Name: ANDREW SIFUENTES Nuclear Medicine ACCESSION EXAM DATE/TIME PROCEDURE ORDERING PROVIDER [id number] 10/21/2021 07:55 EDT NM Pulmonary Perfusion [id number] MAY BOGGS w/ Vent Aerosol CPT code 26560 A9567 Reason For Exam (NM Pulmonary Perfusion w/ Vent Aerosol) sob Report Study: VQ scan. CLINICAL INDICATION: Short of breath. Dose: Less than 2 mCi tc-99m DTPA, 5.0 mCi tc-99m MAA TECHNIQUE: Planar imaging of the chest performed in multiple projections after ventilation agent and subsequently after perfusion agent administered. Comparison: Chest x-ray 10/21/2021 Findings: Routine imaging was performed and viewed on a computer workstation. Chest x-ray shows clear lungs. Segmental unmatched perfusion deficits visible on the right. . Impression: High likelihood ratio for pulmonary embolism. Findings typical for PE. Critical test result. Discussed with Dr. Carter. Report Dictated on Final Dictating Physician: MD HARVEY JOHN Signed Date and Time: 10/21/2021 8:48 am Signed by: MD HARVEY JOHN Transcribed Date and Time: 10/21/2021 8:49 Normal [facility] No Panel Informationon 10-21 Radiology Study observation (narrative) [facility] Work Phone: Prothrombin Timeon 2 INR 1.1 Normal 0.9-1.1 [facility] Comment on above: Result Comment: Harry mmended Anticoagulant Therapy: SEE BELOW ----- INR of 2.0 - 3.0 : - Prophylaxis of Venous Thrombosis (high-risk surgery) - Treatment of Venous Thrombosis - Treatment of Pulmonary Embolism (Includes tissue heart valves, Acute Myocardial Infarction to prevent systemic embolism, Valvular Heart Disease, and Atrial Fibrillation) ----- INR of 2.5 - 3.5 : - Mechanical Prosthetic Valves (high risk) - If oral anticoagulant therapy is used to prevent Myocardial Infarction Performed By: #### C OVAG #### [facility] [address] [place] [address] PT Coag (PPP) [Time] 11.5 s Normal 9.0-12.0 [facility] Comment on above: Result Comment: . Performed By: #### C OVAG #### [facility] [address] [place] [address] Protime-INRon 10-21-2021 INR Coag (Bld) [Relative time] 1.1 {INR} [facility] Comment on above: Recommended Anticoag ulant Therapy: SEE BELOW ----- INR of 2.0 - 3.0 : - Prophylaxis of Venous Thrombosis (high-risk surgery) - Treatment of Venous Thrombosis - Treatment of Pulmonary Embolism (Includes tissue heart valves, Acute Myocardial Infarction to prevent systemic embolism, Valvular Heart Disease, and Atrial Fibrillation) ----- INR of 2.5 - 3.5 : - Mechanical Prosthetic Valves (high risk) - If oral anticoagulant therapy is used to prevent Myocardial Infarction PT Coag (PPP) [Time] 11.5 s 9.0 - 12.0 s [facility] Comment on above: . Test Performed by [facility], [address], [place], [place] [address] [facility] LAB [facility] Retic Count(%)on 10-21-2021 Retic Count(%) 1.6 Normal [facility] Comment on above: Result Comment: Newb orn < 5% Adults 0.5 - 1.5% Performed By: #### P T #### [facility] [address] [place] [address] Reticulocyteson 10-21-[address] [facility] Comment on above: < 5% Adults 0.5 - 1.5% Test Performed by [facility], [address], [place], [place] [id number] [place] [address] LAB [facility] Sed Rateon 10-21-2021 Sed Rate 63 mm/h High 0-10 [facility] Comment on above: Performed By: #### P T #### [facility] [address] [place] [address] Sedimentation Rateon 022 Interpretation and review of laboratory results Abnormal [facility] Sed Rate 63 mm/h High 0 - 10 mm/h [facility] Test Performed by [facility], [address] LAB [facility] VL CARMELLA Upr/L Extremity Art 1 -2 Levelson 10-21-2021 VL CARMELLA Upr/L Extremity Art 1-2 Levels Patient Name: ANDREW SIFUENTES Ultrasound ACCESSION EXAM DATE/TIME PROCEDURE ORDERING PROVIDER [id number] 10/21/2021 16:12 EDT VL Upr/L Extremity Art [id number] -SHRUTHI MALIK 1-2 Levels CPT code 61502 Reason For Exam (VL Upr/L Extremity Art 1-2 Levels) both lower legs CARMELLA for both feet wounds. Report [facility] Ankle Brachial Index Report Patient Gurpreet RADHA: 1950 Study 10/21/2021 Name: Andrew Gonzalez (71yrs) Date: Age: 71 Account: [id number] Gender: M Loc: 444W BP: Ordering Physician: Shruthi Malik Computational Theory Scientist: Rody Cross RDMS, RVT Interpreting Physician: Carina Call Location: [facility] Indications: Foot wounds. Originally ordered as a full PVR. Ordering HOUSEKEEPING MANAGER had to modify the order to ABIs due to patient's acute DVTs in his legs Conclusions 1. Right resting CARMELLA is 1.27. PVR waveforms appear normal at rest in the right ankle. 2. Right resting TBI is 0.96. This is within the normal range. PVR waveforms appear normal at rest in the right 1st toe, right 2nd toe, right 3rd toe, right 4th toe, and right 5th toe. 3. Left resting CARMELLA is 1.29. This is within the normal range. PVR waveforms appear normal at rest in the left ankle. 4. Left resting TBI is 0.48. These findings are abnormal. PVR waveforms appear mildly attenuated in the left 4th toe and left 5th toe. History: Risk factors: Immobility. Age over 65 years. Ultrasound Report Study data: Ankle Brachial Index. Pressure measurement and pulse volume recording. Location: Bedside. Procedure: A vascular evaluation was performed with the patient in the supine position. Images were obtained using a [employer] vascular ultrasound machine. Arterial pressure indices: + + ----+ + +Location +Pressure (REST)*+Index (REST)+ + + ----+ + +R brachial +109 + + + + ----+ + +R DP +152 +1.25 + + + ----+ + +R PT +155 +1.27 + + + ----+ + +R great toe+117 +0.96 + + + ----+ + +L brachial +122 + + + + ----+ + +L DP +157 +1.29 + + + ----+ + +L PT +154 +1.26 + + + ----+ + +L great toe+59 +0.48 + + + ----+ + Prepared and electronically signed by Carina Call 10/22/2021 13:21 Final Dictated: 10/22/2021 1:21 pm Dictating Physician: CARINA HENNESSY Signed Date and Time: 10/22/2021 1:21 pm Signed by: CARINA HENNESSY Cardiovascular ACCESSION EXAM DATE/TIME PROCEDURE [id number] 10/21/2021 16:12 EDT VL Upr/L Extremity Art 1-2 Levels CPT code 53795 Reason For Exam (VL Upr/L Extremity Art 1-2 Levels) both lower legs CARMELLA for both feet wounds. Report [facility] Ankle Brachial Index Report Patient RADHA Sifuentes: 1950 Study 10/21/2021 Name: Andrew Gonzalez (71yrs) Date: Age: 71 Account: [id number] Cardiovascular Report Gender: M Loc: 444W BP: Ordering Physician: Shruthi Malik Computational Theory Scientist: Rody Cross RDMS, BLAIRE Interpreting Physician: Carina Call Location: [facility] Indications: Foot wounds. Originally ordered as a full PVR. Ordering HOUSEKEEPING MANAGER had to modify the order to ABIs due to patient's acute DVTs in his legs Conclusions 1. Right resting CARMELLA is 1.27. PVR waveforms appear normal at rest in the right ankle. 2. Right resting TBI is 0.96. This is within the normal range. PVR waveforms appear normal at rest in the right 1st toe, right 2nd toe, right 3rd toe, right 4th toe, and right 5th toe. 3. Left resting CARMELLA is 1.29. This is within the normal range. PVR waveforms appear normal at rest in the left ankle. 4. Left resting TBI is 0.48. These findings are abnormal. PVR waveforms appear mildly attenuated in th (more content not included)... Normal [facility] VL LOWER EXTREMITY BILATERAL VENOUS DUPLEXon 10-21-2021 [facility] Lower Extremity Venous Duplex Report Luís Sifuentes DOB: 1950 Study 10/21/2021 Name: Andrew Gonzalez (71yrs) Date: Age: 71 Account: [id number] Gender: M Loc: 444 BP: Ordering Physician: May Cash Computational Theory Scientist: Rody Cross RDMS, RVT Interpreting Physician: Carina Call Location: [facility] Indications: Bilateral lower leg edema. CRITICAL RESULTS: A critical finding, was reported to ATTILA Scherer by Rody Cross , on 10/21/2021 , at 09:20 AM. Correct read-back was verified. Conclusions 1. Study shows an acute vs subacute deep vein thrombosis noted in the right common femoral vein, right saphenofemoral junction, and right deep femoral vein. 2. Study shows an acute deep vein thrombosis noted in the right femoral vein, right popliteal vein, right peroneal veins, right posterior tibial veins, and right gastrocnemius veins. 3. Study shows an acute deep vein thrombosis noted in the left gastrocnemius veins. 4. Study shows a chronic deep vein thrombosis noted in the left popliteal vein. 5. There is no evidence of superficial vein thrombosis noted in the right lower extremity. 6. There is no evidence of superficial vein thrombosis noted in the left lower extremity. History: Risk factors: Obese. Hypercoagulable state. Immobility. Age over 65 years. Study data: Complete lower extremity venous duplex evaluation. Grayscale 2D imaging, color Doppler imaging, and spectral Doppler analysis. Location: Bedside. Objective: Diagnostic evaluation. Procedure: A vascular evaluation was performed with the patient in the supine position. Images were obtained using a [employer] vascular ultrasound machine. Venous flow and imaging: + +-------- --------+ + + +Location +Overall +Thrombus +Properties + + +-------- --------+ + + +R CFV +Partially +Acute on chronic+ --+ + +occluded + + + + +-------- --------+ + + +R +Partially +Acute on chronic+ --+ +saphenofemoral +occluded + + + +junction + + + + + +-------- --------+ + + +R profunda +Partially +Acute on chronic+ --+ +femoral +occluded + + + + +-------- --------+ + + +R FV - prox. +Partially +Acute on chronic+ --+ + +occluded + + + + +-------- --------+ + + +R FV - mid +Patent +Acute + + + +-------- --------+ + + +R FV - distal +Totally occluded+Acute + + + +-------- --------+ + + +R popliteal +Totally occluded+ +Normal phasicity; + + + + +spontaneous; normal+ + + + +augmentation; + + + + +compressible + + +-------- --------+ + + +R gastrocnemius+Totally occluded+Acute + + + +-------- --------+ + + +R PTV +Totally occluded+Acute + + + +-------- --------+ + + +R peroneal +Totally occluded+Acute + + + +-------- --------+ + + +R soleal +Patent + +Naun sible + + +-------- --------+ + (more content not included)... [facility] Carina Call MD - 10/21/2021 [facility] Lower Extremity Venous Duplex Report Patient DO GurpreetB: 1950 Study 10/21/2021 Name: Andrew Gonzalez (yr) Date: Age: 71 Account: [id number] Gender: M Loc: 444 BP: Ordering Physician: May Cash Computational Theory Scientist: Rody Cross RDMS, RVT Interpreting Physician: Carina Call Location: [facility] Indications: Bilateral lower leg edema. CRITICAL RESULTS: A critical finding, was reported to ATTILA Scherer by Rody Cross on 10/21/2021 , at 09:20 AM. Correct read-back was verified. Conclusions 1. Study shows an acute vs subacute deep vein thrombosis noted in the right common femoral vein, right saphenofemoral junction, and right deep femoral vein. 2. Study shows an acute deep vein thrombosis noted in the right femoral vein, right popliteal vein, right peroneal veins, right posterior tibial veins, and right gastrocnemius veins. 3. Study shows an acute deep vein thrombosis noted in the left gastrocnemius veins. 4. Study shows a chronic deep vein thrombosis noted in the left popliteal vein. 5. There is no evidence of superficial vein thrombosis noted in the right lower extremity. 6. There is no evidence of superficial vein thrombosis noted in the left lower extremity. History: Risk factors: Obese. Hypercoagulable state. Immobility. Age over 65 years. Study data: Complete lower extremity venous duplex evaluation. Grayscale 2D imaging, color Doppler imaging, and spectral Doppler analysis. Location: Bedside. Objective: Diagnostic evaluation. Procedure: A vascular evaluation was performed with the patient in the supine position. Images were obtained using a [employer] vascular ultrasound machine. Venous flow and imaging: + +-------- --------+ + + +Location +Overall +Thrombus +Properties + + +-------- --------+ + + +R CFV +Partially +Acute on chronic+ --+ + +occluded + + + + +-------- --------+ + + +R +Partially +Acute on chronic+ --+ +saphenofemoral +occluded + + + +junction + + + + + +-------- --------+ + + +R profunda +Partially +Acute on chronic+ --+ +femoral +occluded + + + + +-------- --------+ + + +R FV - prox. +Partially +Acute on chronic+ --+ + +occluded + + + + +-------- --------+ + + +R FV - mid +Patent +Acute + + + +-------- --------+ + + +R FV - distal +Totally occluded+Acute + + + +-------- --------+ + + +R popliteal +Totally occluded+ +Normal phasicity; + + + + +spontaneous; normal+ + + + +augmentation; + + + + +compressible + + +-------- --------+ + + +R gastrocnemius+Totally occluded+Acute + + + +-------- --------+ + + +R PTV +Totally occluded+Acute + + + +-------- --------+ + + +R peroneal +Totally occluded+Acute + + + +-------- --------+ + + +R soleal +Patent + +Naun sible + + +-------- --------+ + + +R GSV +Patent + +Naun sible + + +-------- --------+ + + +L CFV +Patent + +Normal phasicity; + + + + +spontaneous; normal+ + + + +augmentation; + + + + +compressible + + +-------- --------+ + + +L +Patent + +Naun sible + +saphenofemoral + + + + +junction + + + + + +-------- --------+ + + +L profunda +Patent + +------- + +femoral + + + + + +----- (more content not included)... [facility] Work Phone: VL LOWER EXTREMITY BILATERAL VENOUS DUPLEXOrdered By: Carina Call on 10-21-2021 [employer] Work Phone: VL Venous Duplex US Lower Ex t Bilateralon 10-21-2021 VL Venous Duplex US Lower Ext Bilateral Patient Name: ANDREW SIFUENTES Ultrasound ACCESSION EXAM DATE/TIME PROCEDURE ORDERING PROVIDER [id number] 10/21/2021 09:53 EDT VL Venous Duplex US [id number] -MAY CASH Lower Ext Bilateral CPT code 44643 Reason For Exam (VL Venous Duplex US Lower Ext Bilateral) bilateral sqwelling redness Report [facility] Lower Extremity Venous Duplex Report Patient DO GurpreetB: 1950 Study 10/21/2021 Name: Andrew Gonzalez (71yrs) Date: Age: 71 Account: [id number] Gender: M Loc: 444 BP: Ordering Physician: May Cash Computational Theory Scientist: Rody Cross RDMS, RVT Interpreting Physician: Carina Call Location: [facility] Indications: Bilateral lower leg edema. CRITICAL RESULTS: A critical finding, was reported to ATTILA Scherer by Rody Cross , on 10/21/2021 , at 09:20 AM. Correct read-back was verified. Conclusions 1. Study shows an acute vs subacute deep vein thrombosis noted in the right common femoral vein, right saphenofemoral junction, and right deep femoral vein. 2. Study shows an acute deep vein thrombosis noted in the right femoral vein, right popliteal vein, right peroneal veins, right posterior tibial veins, and right gastrocnemius veins. 3. Study shows an acute deep vein thrombosis noted in the left gastrocnemius veins. 4. Study shows a chronic deep vein thrombosis noted in the left popliteal vein. 5. There is no evidence of superficial vein thrombosis noted in the right lower extremity. 6. There is no evidence of superficial vein thrombosis noted in the Ultrasound Report left lower extremity. History: Risk factors: Obese. Hypercoagulable state. Immobility. Age over 65 years. Study data: Complete lower extremity venous duplex evaluation. Grayscale 2D imaging, color Doppler imaging, and spectral Doppler analysis. Location: Bedside. Objective: Diagnostic evaluation. Procedure: A vascular evaluation was performed with the patient in the supine position. Images were obtained using a [employer] vascular ultrasound machine. Venous flow and imaging: + +-------- --------+ + + +Location +Overall +Thrombus +Properties + + +-------- --------+ + + +R CFV +Partially +Acute on chronic+ --+ + +occluded + + + + +-------- --------+ + + +R +Partially +Acute on chronic+ --+ +saphenofemoral +occluded + + + +junction + + + + + +-------- --------+ + + +R profunda +Partially +Acute on chronic+ --+ +femoral +occluded + + + + +-------- --------+ + + +R FV - prox. +Partially +Acute on chronic+ --+ + +occluded + + + + +-------- --------+ + + +R FV - mid +Patent +Acute + + + +-------- --------+ + + +R FV - distal +Totally occluded+Acute + + + +-------- --------+ + + +R popliteal +Totally occluded+ +Normal phasicity; + + + + +spontaneous; normal+ + + + +augmentation; + + + + +compressible + + +-------- --------+ + + +R gastrocnemius+Totally occluded+Acute + + + +-------- --------+ + + +R PTV +Totally occluded+Acute + + + +-------- --------+ + + +R peroneal +Totally occluded+Acute + + + +-------- --------+ + + +R soleal +Patent + +Naun sible + + +-------- --------+ + + +R GSV +Patent + +Naun sible + + +-------- --------+ + + +L CFV +Patent + +Normal phasicity; + + + + +spontaneous; normal+ + + + +augmentation; + + + + +compressible + + +-------- --------+ + + (more content not included)... Normal [employer] [facility] XR CALCANEUS LEFT (MIN 2 VIE WS)on 10-21-2021 Patient Name: ANDREW SIFUENTES Diagnostic Radiology ACCESSION EXAM DATE/TIME PROCEDURE ORDERING PROVIDER [id number] 10/21/2021 15:30 EDT CR Calcaneus 2+ Views [id number] -SHRUTHI MALIK Left CPT code 93423 Reason For Exam (CR Calcaneus 2+ Views Left) unstageable ulceration possible osteomyelitis , 3 views please. Report Examination: CR Calcaneus 2+ Views Left Clinical: unstageable ulceration possible osteomyelitis , 3 views please. Comparison: None Findings: AP and lateral views of the left calcaneus. Osteopenia. 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 Degenerative changes along the os trigonum posteriorly. Atherosclerotic calcification posterior to the ankle. There is some calcification seen at the plantar aponeurotic origin. There is superficial soft tissue erosion seen along the medial aspect of the calcaneus. No deep subcutaneous air or foreign body is seen. There is very subtle surface irregularity seen along the posterior medial calcaneus which could be related to enthesophyte. A subtle surface erosion is not entirely excluded. No evidence of osteomyelitis is seen on the lateral projection. Midfoot demonstrates minimal osteoarthropathy. Impression: 1. Soft tissue fairly superficial ulceration along the posterior lateral aspect of the left calcaneus. 2. Nonspecific subtle surface irregularity along the posterior lateral calcaneus which could be related to enthesophytes. No definite acute osteomyelitis. If concern for early, superficial osteomyelitis, MRI or bone scan could be considered for more sensitive evaluation. 3. 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 Degenerative changes also seen along the os trigonum. Diagnostic Radiology Report Report Dictated on --- Final --- Dictating Physician: MD WONG ANTHONY J Signed Date and Time: 10/21/2021 4:31 pm Signed by: MD WONG ANTHONY J Transcribed Date and Time: 10/21/2021 4:33 [facility] Alan Wong MD - 10/21/2021 Patient Name: ANDREW SIFUENTES Diagnostic Radiology ACCESSION EXAM DATE/TIME PROCEDURE ORDERING PROVIDER [id number] 10/21/2021 15:30 EDT CR Calcaneus 2+ Views [id number] -SHRUTHI MALIK Left CPT code 74623 Reason For Exam (CR Calcaneus 2+ Views Left) unstageable ulceration possible osteomyelitis , 3 views please. Report Examination: CR Calcaneus 2+ Views Left Clinical: unstageable ulceration possible osteomyelitis , 3 views please. Comparison: None Findings: AP and lateral views of the left calcaneus. Osteopenia. 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 Degenerative changes along the os trigonum posteriorly. Atherosclerotic calcification posterior to the ankle. There is some calcification seen at the plantar aponeurotic origin. There is superficial soft tissue erosion seen along the medial aspect of the calcaneus. No deep subcutaneous air or foreign body is seen. There is very subtle surface irregularity seen along the posterior medial calcaneus which could be related to enthesophyte. A subtle surface erosion is not entirely excluded. No evidence of osteomyelitis is seen on the lateral projection. Midfoot demonstrates minimal osteoarthropathy. Impression: 1. Soft tissue fairly superficial ulceration along the posterior lateral aspect of the left calcaneus. 2. Nonspecific subtle surface irregularity along the posterior lateral calcaneus which could be related to enthesophytes. No definite acute osteomyelitis. If concern for early, superficial osteomyelitis, MRI or bone scan could be considered for more sensitive evaluation. 3. 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 Degenerative changes also seen along the os trigonum. Diagnostic Radiology Report Report Dictated on --- Final --- Dictating Physician: MD WONG ANTHONY J Signed Date and Time: 10/21/2021 4:31 pm Signed by: MD WONG ANTHONY J Transcribed Date and Time: 10/21/2021 4:33 [facility] Work Phone: XR CALCANEUS LEFT (MIN 2 VIE WS)Ordered By: Alan Wong on 10-21-2021 [facility] Work Phone: XR Chest 1 VWon 10-21-2021 [id number] Radiology ACCESSION EXAM DATE/TIME PROCEDURE ORDERING PROVIDER [id number] 10/21/2021 08:16 EDT CR Chest 1 View Frontal [id number] MAY BOGGS CPT code 66546 Reason For Exam (CR Chest 1 View Frontal) follow to VQ scan Report EXAMINATION: PORTABLE CHEST RADIOGRAPH CLINICAL INDICATION: Shortness of breath TECHNIQUE: Portable AP COMPARISON: 08/17/2014. FINDINGS/IMPRESSION: Support lines and tubes: Left IJ central line terminates in the right atrium. Heart/Mediastinum: Normal Lungs/Pleura: No focal consolidation. No pleural effusions. No pneumothorax. Bones: No acute osseous abnormality. Report Dictated on --- Final --- Dictating Physician: MD LOYD WASSIM OSAMA Signed Date and Time: 10/21/2021 8:32 am Signed by: MD LOYD WASSIM OSAMA Transcribed Date and Time: 10/21/2021 8:33 [facility] Venus Loyd MD - 10/21/2021 Patient Name: [id number] Diagnostic Radiology ACCESSION EXAM DATE/TIME PROCEDURE ORDERING PROVIDER [id number] 10/21/2021 08:16 EDT CR Chest 1 View Frontal [id number] -MAY CASH CPT code 84271 Reason For Exam (CR Chest 1 View Frontal) follow to VQ scan Report EXAMINATION: PORTABLE CHEST RADIOGRAPH CLINICAL INDICATION: Shortness of breath TECHNIQUE: Portable AP COMPARISON: 08/17/2014. FINDINGS/IMPRESSION: Support lines and tubes: Left IJ central line terminates in the right atrium. Heart/Mediastinum: Normal Lungs/Pleura: No focal consolidation. No pleural effusions. No pneumothorax. Bones: No acute osseous abnormality. Report Dictated on --- Final --- Dictating Physician: MD KHARI, VENUS RAMOS Signed Date and Time: 10/21/2021 8:32 am Signed by: MD LOYD WASSIM OSAMA Transcribed Date and Time: 10/21/2021 8:33 [facility] Work Phone: XR Chest 1 VWOrdered By: Natalie Loyd on 10-21-2021 [facility] Work Phone: Basophil percentageon 2021 Chloride [Moles/Vol] 108 mmol/L 98-107 [facility] Work Phone: Glucose [Mass/Vol] 93 mg/dL 74-106 [facility] Work Phone: Potassium [Moles/Vol] 3.9 mmol/L 3.5-5.1 [facility] Work Phone: Sodium [Moles/Vol] 140 mmol/L 136-145 [facility] Work Phone: WBC (Bld) [#/Vol] 8.7 10*3/uL 4.4-11.0 [facility] Work Phone: [phone] Blood erythrocytes count (nu mber/volume)on 10-20-2021 RBC (Bld) [#/Vol] 3.63 10*6/uL 4.6-6.2 [facility] Work Phone: Blood hemoglobin measurement (mass/volume)on 10-20-2021 Hemoglobin (Bld) [Mass/Vol] 10.1 g/dL 13.0-16.5 [facility] Work Phone: Blood platelet mean volumeon 10-20-2021 Platelet mean volume (Bld) [Entitic vol] 9.8 fL 6.2-12.0 [facility] Work Phone: Determination of erythrocyte mean corpuscular volume (MCV)on 10-20-2021 MCV (RBC) [Entitic vol] 90.1 fL 80-94 [facility] Work Phone: Hematocrit Auto (Bld) [Volum e fraction]on 10-20-2021 Hematocrit (Bld) [Volume fraction] 32.7 % 40-54 [facility] Work Phone: Laboratory - Chemistry and C hemistry - challengeon 10-20-2021 CO2 [Moles/Vol] 25.0 mmol/L 21.0-32.0 [facility] Work Phone: Urea nitrogen/Creatinine [Mass ratio] 17.4 mg/mg 10-20 [facility] Work Phone: Laboratory - Hematology and Cell countson 10-20-2021 Erythrocyte distribution width (RBC) [Entitic vol] 52.1 fL 35.1-43.9 [facility] Work Phone: Erythrocyte distribution width (RBC) [Ratio] 15.6 % 11.6-14.6 [facility] Work Phone: MCH (RBC) [Entitic mass] 27.8 pg 27.0-32.0 [facility] Work Phone: MCHC Auto (RBC) [Mass/Vol]on 10-20-2021 MCHC (RBC) [Mass/Vol] 30.9 g/dL 32-36 [facility] Work Phone: No Panel Informationon 10-20 Estimated GFR (MDRD) Amer 133 mL/min >60 [facility] Work Phone: Comment on above: GFR Calc Estimated GFR (MDRD) Non-Af Amer 110 mL/min >60 [facility] Work Phone: Comment on above: Non- GFR Calc Platelets bldon 10-20-2021 Platelets (Bld) [#/Vol] 404 10*3/uL 150-450 [facility] Work Phone: Serum or plasma calcium oral urement (mass/volume)on 10-20-2021 Calcium [Mass/Vol] 9.1 mg/dL 8.5-10.1 [facility] [place] Work Phone: Serum or plasma creatinine m easurement (mass/volume)on 10-20-2021 Creatinine [Mass/Vol] 0.75 mg/dL 0.70-1.30 [facility] [place] Work Phone: Comment on above: The validity of the calculated GFR & GFRAA in patients over 70 years has not been determined. Clinical correlation is essential. Serum or plasma urea nitroge n measurement (mass/volume)on 10-20-2021 Urea nitrogen [Mass/Vol] 13 mg/dL 7-18 [facility] Work Phone: Thin prep Papanicolaou smear with manual screeningon 10-20-2021 Thin prep Papanicolaou smear with manual screening 7 5-15 [facility] Work Phone: CNPNon 10-17-2021 CNPN Normal [facility] Absolute lymphocyte counton 09-19-2021 Lymphocytes Auto (Unsp spec) [#/Vol] 1.74 10*3/uL 0.83-4.51 [facility] Work Phone: Basophil percentageon 2021 Basophils/100 WBC (Bld) 0.6 % 0-1 [facility] Work Phone: Bilirubin [Mass/Vol] 0.30 mg/dL 0.20-1.00 [facility] Work Phone: Comment on above: For patients on eltr ombopag therapy, use of Dimension [place] TBIL is not recommended. Chloride [Moles/Vol] 105 mmol/L 98-107 [facility]: Eosinophils/100 WBC (Bld) 3.5 % 0-5 [facility] Work Phone: Glucose [Mass/Vol] 91 mg/dL 74-106 [facility]: Neutrophils (Bld) [#/Vol] 4.2 10*3/uL 2.0-7.7 [facility] Work Phone: Neutrophils/100 WBC (Bld) 62.6 % 47-70 [facility] Work Phone: Potassium [Moles/Vol] 3.8 mmol/L 3.5-5.1 [facility] Work [facility]: Protein [Mass/Vol] 6.3 g/dL 6.4-8.2 [facility] Work Phone: Sodium [Moles/Vol] 139 mmol/L 136-145 [facility] Work Phone: WBC (Bld) [#/Vol] 6.6 10*3/uL 4.4-11.0 [facility] Work Phone: [phone] Blood erythrocytes count (nu mber/volume)on 09-19-2021 RBC (Bld) [#/Vol] 3.47 10*6/uL 4.6-6.2 [facility] Work [facility]: Blood hemoglobin measurement (mass/volume)on 09-19-2021 Hemoglobin (Bld) [Mass/Vol] 10.2 g/dL 13.0-16.5 [facility] Work Phone: Blood lymphocytes/100 leukoc yteson 09-19-2021 Lymphocytes/100 WBC (Bld) 26.2 % 19-41 [facility] Work Phone: Blood monocytes/100 leukocyt eson 09-19-2021 Monocytes/100 WBC (Bld) 6.5 % 0-10 [facility] Work Phone: Blood platelet mean volumeon 09-19-2021 Platelet mean volume (Bld) [Entitic vol] 9.6 fL 6.2-12.0 [facility] Work Phone: Determination of erythrocyte mean corpuscular volume (MCV)on 09-19-2021 MCV (RBC) [Entitic vol] 94.8 fL 80-94 [facility] Work Phone: Hematocrit Auto (Bld) [Volum e fraction]on 09-19-2021 Hematocrit (Bld) [Volume fraction] 32.9 % 40-54 [facility] Work Phone: Laboratory - Chemistry and C hemistry - challengeon 09-19-2021 ALP [Catalytic activity/Vol] 109 U/L 45-117 [facility] Work Phone: ALT [Catalytic activity/Vol] 23 U/L 16-61 [facility] Work Phone: CO2 [Moles/Vol] 26.0 mmol/L 21.0-32.0 [facility] Work Phone: Globulin (S) [Mass/Vol] 3.5 g/dL 2.2-4.2 [facility] Work Phone: Urea nitrogen/Creatinine [Mass ratio] 15.3 mg/mg 10-20 [facility] Work Phone: Laboratory - Hematology and Cell countson 09-19-2021 Erythrocyte distribution width (RBC) [Entitic vol] 59.4 fL 35.1-43.9 [facility] Work Phone: Erythrocyte distribution width (RBC) [Ratio] 17.1 % 11.6-14.6 [facility] Work Phone: Immature granulocytes/100 WBC (Bld) 0.600 % 0.0-0.9 [facility] Work Phone: Comment on above: IG% - Immature Granu locytes (promyelocytes, myelocytes and metamyelocytes) > 1% indicates that a LEFT SHIFT is Present. MCH (RBC) [Entitic mass] 29.4 pg 27.0-32.0 [facility] Work Phone: Nucleated RBC/100 WBC (Bld) [Ratio] 0 % 0-5 [facility] Work Phone: MCHC Auto (RBC) [Mass/Vol]on 09-19-2021 MCHC (RBC) [Mass/Vol] 31.0 g/dL 32-36 [facility] Work Phone: No Panel Informationon 09-19 Estimated GFR (MDRD) Amer 175 mL/min >60 [facility] Work Phone: Comment on above: GFR Calc Estimated GFR (MDRD) Non-Af Amer 145 mL/min >60 [facility] Work Phone: Comment on above: Non- GFR Calc Platelets bldon 09-19-2021 Platelets (Bld) [#/Vol] 342 10*3/uL 150-450 [facility] Work Phone: Serum or plasma albumin oral urement (mass/volume)on 09-19-2021 Albumin [Mass/Vol] 2.8 g/dL 3.2-5.0 [facility] Work Phone: Serum or plasma albumin/glob ulin mass ratioon 09-19-2021 Albumin/Globulin [Mass ratio] 0.8 {ratio} 0.9-2.4 [facility] Work Phone: Serum or plasma calcium oral urement (mass/volume)on 09-19-2021 Calcium [Mass/Vol] 9.0 mg/dL 8.5-10.1 [facility] Work Phone: Serum or plasma creatinine m easurement (mass/volume)on 09-19-2021 Creatinine [Mass/Vol] 0.59 mg/dL 0.70-1.30 [facility] Work Phone: Comment on above: The validity of the calculated GFR & GFRAA in patients over 70 years has not been determined. Clinical correlation is essential. Serum or plasma urea nitroge n measurement (mass/volume)on 09-19-2021 Urea nitrogen [Mass/Vol] 9 mg/dL 7-18 [facility] Work Phone: Thin prep Papanicolaou smear with manual screeningon 09-19-2021 Thin prep Papanicolaou smear with manual screening 12 U/L 15-37 [facility] Work Phone: Thin prep Papanicolaou smear with manual screening 8 5-15 [facility] Work Phone: OPERATIVE NOon 08-22-2021 OPERATIVE NO Normal [facility] Basic metabolic 2000 panelon 08-19-2021 Anion gap [Moles/Vol] 10 mmol/L Normal 9-18 [facility] Comment on above: Order Comment: Speci men Type: BLOOD SPECIMENOrdering Facility: [facility] Address: [address] [place] [address] Performed By: #### 2 4321-2 ####[facility] LABORATORYCLIA [id number] [place] [address] [place] Calcium [Mass/Vol] 8.6 mg/dL Normal 8.5-10.2 [facility] Comment on above: Order Comment: Speci men Type: BLOOD SPECIMENOrdering Facility: [facility] Address: [address] [place] [address] Performed By: #### 2 4321-2 ####[facility] LABORATORYCLIA [id number] [place] [address] [place] Chloride [Moles/Vol] 99 mmol/L Normal 97-105 [facility] Comment on above: Order Comment: Speci men Type: BLOOD SPECIMENOrdering Facility: [facility] Address: [address] [place] [address] Performed By: #### 2 4321-2 ####[facility] LABORATORYCLIA [id number] [place] [address] [place] CO2 [Moles/Vol] 29 mmol/L Normal 22-30 [facility] Comment on above: Order Comment: Speci men Type: BLOOD SPECIMENOrdering Facility: [facility] Address: [address] [place] [address] Performed By: #### 2 4321-2 ####[facility] LABORATORYCLIA [id number] [address] [place] Creatinine [Mass/Vol] 0.58 mg/dL Low 0.73-1.22 [facility] Comment on above: Order Comment: Shira feldman Type: BLOOD SPECIMENOrdering Facility: [facility] Address: [address] [place] [address] Performed By: #### 2 4321-2 ####[facility] LABORATORYCLIA [id number] [address] ESTIMATED GLOMERULAR FILTRATION RATE 106 mL/min/1.73m??? Normal >=60 [facility] Comment on above: Order Comment: Shira feldman Type: BLOOD SPECIMENOrdering Facility: [facility] Address: [address] [place] [address] Result Comment: Luzmaria mated Glomerular Filtration Rate (eGFR) is calculated using the 2020 CKD-EPI creatinine equation. This equation utilizes serum creatinine, sex, and age as parameters. The creatinine assay has traceable calibration to isotope dilution-mass spectrometry. Refer to KDIGO guidelines for clinical interpretation. In patients with unstable renal function, e.g. those with acute kidney injury, the eGFR may not accurately reflect actual GFR. Performed By: #### 2 4321-2 ####[facility] LABORATORYCLIA [id number] [address] [place] Glucose [Mass/Vol] 101 mg/dL High 74-99 [facility] Comment on above: Order Comment: Shira francia Type: BLOOD SPECIMENOrdering Facility: [facility] Address: [address] [place] [address] Result Comment: The [place] [employer] (ADA) provides guidance for cutoff values for fasting glucose and random glucose. The ADA defines fasting as no caloric intake for at least 8 hours. Fasting plasma glucose results between 100 to 125 mg/dL indicate increased risk for diabetes (prediabetes).Fasting plasma glucose results greater than or equal to 126 mg/dL meet the criteria for diagnosis of diabetes. In the absence of unequivocal hyperglycemia, results should be confirmed by repeat testing. In a patient with classic symptoms of hyperglycemia or hyperglycemic crisis, random plasma glucose results greater than or equal to 200 mg/dL meet the criteria for diagnosis of diabetes.Reference: Standards of Medical Care in Diabetes 2016, [place] [employer]. Diabetes Care. 2016.39(Suppl 1). Performed By: #### 2 4321-2 ####[facility] LABORATORYCLIA [id number] [address] [place] Potassium [Moles/Vol] 3.5 mmol/L Low 3.7-5.1 [facility] Comment on above: Order Comment: Shira feldman Type: BLOOD SPECIMENOrdering Facility: [facility] Address: [address] [place] [address] Performed By: #### 2 4321-2 ####[facility] LABORATORYCLIA [id number] [address] STATES [facility] Sodium [Moles/Vol] 138 mmol/L Normal 136-144 [facility] Comment on above: Order Comment: Shira feldman Type: BLOOD SPECIMENOrdering Facility: [facility] Address: [address] [place] [address] Performed By: #### 2 4321-2 ####[facility] LABORATORYCLIA [id number] [address] Urea nitrogen [Mass/Vol] 11 mg/dL Normal 9-24 [facility] Comment on above: Order Comment: Shira feldman Type: BLOOD SPECIMENOrdering Facility: [facility] Address: [address] [place] [address] Performed By: #### 2 4321-2 ####[facility] LABORATORYCLIA [id number] [address] [place] CASE MANAGEMon 08-19-2021 CASE MANAGEM Normal [facility] CBC W Auto Differential pane l (Bld)on 08-19-2021 Basophils (Bld) [#/Vol] 0.03 10*3/uL Normal <0.11 [facility] Comment on above: Order Comment: Johni men Type: BLOOD SPECIMENOrdering Facility: [facility] Address: [address] [place] [address] Performed By: #### 5 7021-8 ####[facility]ORATORYCLIA [id number] [address] STATES [facility] Basophils/100 WBC (Bld) 0.4 % Normal [facility] Comment on above: Order Comment: Speci men Type: BLOOD SPECIMENOrdering Facility: [facility] Address: [address] [place] [address] Performed By: #### 5 7021-8 ####[facility] LABORATORYCLIA [id number] [address] Differential cell count method Nom (Bld) Auto Normal [facility] Comment on above: Order Comment: Speci men Type: BLOOD SPECIMENOrdering Facility: [facility] Address: [address] [place] [address] Performed By: #### 5 7021-8 ####[facility] LABORATORYCLIA [id number] [address] [place] Eosinophils (Bld) [#/Vol] 0.24 10*3/uL Normal <0.46 [facility] Comment on above: Order Comment: Speci men Type: BLOOD SPECIMENOrdering Facility: [facility] Address: [address] [place] [address] Performed By: #### 5 7021-8 ####[facility] LABORATORYCLIA [id number] [address] STATES [facility] Eosinophils/100 WBC (Bld) 3.1 % Normal [facility] Comment on above: Order Comment: Speci men Type: BLOOD SPECIMENOrdering Facility: [facility] Address: [address] [place] [address] Performed By: #### 5 7021-8 ####[facility]ORATORYCLIA [id number] [address] [place] Erythrocyte distribution width (RBC) [Ratio] 17.5 % High 11.5-15.0 [facility] Comment on above: Order Comment: Speci men Type: BLOOD SPECIMENOrdering Facility: [facility] Address: [address] [place] [address] Performed By: #### 5 7021-8 ####[facility] LABORATORYCLIA [id number] [address] Hematocrit (Bld) [Volume fraction] 30.2 % Low 39.0-51.0 [facility] Comment on above: Order Comment: Speci men Type: BLOOD SPECIMENOrdering Facility: [facility] Address: [address] [place] [address] Performed By: #### 5 7021-8 ####[facility] LABORATORYCLIA [id number] [address] Hemoglobin (Bld) [Mass/Vol] 9.6 g/dL Low 13.0-17.0 [facility] Comment on above: Order Comment: Speci men Type: BLOOD SPECIMENOrdering Facility: [facility] Address: [address] [place] [address] Performed By: #### 5 7021-8 ####[facility] LABORATORYCLIA [id number] [address] IMMATURE GRAN % 0.4 % Normal [facility] Comment on above: Order Comment: Speci men Type: BLOOD SPECIMENOrdering Facility: [facility] Address: [address] [place] [address] Performed By: #### 5 7021-8 ####[facility] LABORATORYCLIA [id number] [address] IMMATURE GRAN ABS 0.03 k/uL Normal <0.10 [facility] Comment on above: Order Comment: Speci men Type: BLOOD SPECIMENOrdering Facility: [facility] Address: [address] [place] [address] Performed By: #### 5 7021-8 ####[facility] LABORATORYCLIA [id number] [address] Lymphocytes (Bld) [#/Vol] 1.71 10*3/uL Normal 1.00-4.00 [facility] Comment on above: Order Comment: Speci men Type: BLOOD SPECIMENOrdering Facility: [facility] Address: [address] [place] [address] Performed By: #### 5 7021-8 ####[facility] LABORATORYCLIA [id number] [address] Lymphocytes/100 WBC (Bld) 22.2 % Normal [facility] Comment on above: Order Comment: Speci men Type: BLOOD SPECIMENOrdering Facility: [facility] Address: [address] [place] [address] Performed By: #### 5 7021-8 ####[facility] LABORATORYCLIA [id number] [address] [place] MCH (RBC) [Entitic mass] 29.4 pg Normal 26.0-34.0 [facility] Comment on above: Order Comment: Speci men Type: BLOOD SPECIMENOrdering Facility: [facility] Address: [address] [place] [address] Performed By: #### 5 7021-8 ####[facility] LABORATORYCLIA [id number] [address] MCHC (RBC) [Mass/Vol] 31.8 g/dL Normal 30.5-36.0 [facility] Comment on above: Order Comment: Speci men Type: BLOOD SPECIMENOrdering Facility: [facility] Address: [address] [place] [address] Performed By: #### 5 7021-8 ####[facility] LABORATORYCLIA [id number] [address] MCV (RBC) [Entitic vol] 92.6 fL Normal 80.0-100.0 [facility] Comment on above: Order Comment: Speci men Type: BLOOD SPECIMENOrdering Facility: [facility] Address: [address] [place] [address] Performed By: #### 5 7021-8 ####[facility] LABORATORYCLIA [id number] [place] [address] [place] Monocytes (Bld) [#/Vol] 0.50 10*3/uL Normal <0.87 [facility] Comment on above: Order Comment: Speci men Type: BLOOD SPECIMENOrdering Facility: [facility] Address: [address] [place] [address] Performed By: #### 5 7021-8 ####[facility]ORATORYCLIA [id number] [place] [address] [place] Monocytes/100 WBC (Bld) 6.5 % Normal [facility] Comment on above: Order Comment: Speci men Type: BLOOD SPECIMENOrdering Facility: [facility] Address: [address] [place] [address] Performed By: #### 5 7021-8 ####[facility] LABORATORYCLIA [id number] [place] [address] [place] Neutrophils (Bld) [#/Vol] 5.20 10*3/uL Normal 1.45-7.50 [facility] Comment on above: Order Comment: Speci men Type: BLOOD SPECIMENOrdering Facility: [facility] Address: [address] [place] [address] Performed By: #### 5 7021-8 ####[facility]ORATORYCLIA [id number] [address] [place] Neutrophils/100 WBC (Bld) 67.4 % Normal [facility] Comment on above: Order Comment: Speci men Type: BLOOD SPECIMENOrdering Facility: [facility] Address: [address] [place] [address] Performed By: #### 5 7021-8 ####[facility] LABORATORYCLIA [id number] [place] [address] [place] Nucleated RBC (Bld) [#/Vol] 10*3/uL Normal <0.01 [facility] Comment on above: Order Comment: Speci men Type: BLOOD SPECIMENOrdering Facility: [facility] Address: [address] [address] Performed By: #### 5 7021-8 ####[facility] LABORATORYCLIA [id number] [address] [place] Nucleated RBC/100 WBC (Bld) [Ratio] 0.0 /100 WBC Normal [facility] Comment on above: Order Comment: Speci men Type: BLOOD SPECIMENOrdering Facility: [facility] Address: [address] [place] [address] Performed By: #### 5 7021-8 ####[facility] LABORATORYCLIA [id number] [place] [address] [place] Platelet mean volume (Bld) [Entitic vol] 8.9 fL Low 9.0-12.7 [facility] Comment on above: Order Comment: Speci men Type: BLOOD SPECIMENOrdering Facility: [facility] Address: [address] [place] [address] Performed By: #### 5 7021-8 ####[facility]ORATORYCLIA [id number] [place] [address] [place] Platelets (Bld) [#/Vol] 408 10*3/uL High 150-400 [facility] Comment on above: Order Comment: Speci men Type: BLOOD SPECIMENOrdering Facility: [facility] Address: [address] [place] [address] Performed By: #### 5 7021-8 ####[facility] LABORATORYCLIA [id number] [place] [address] [place] RBC (Bld) [#/Vol] 3.26 10*6/uL Low 4.20-6.00 [facility] Comment on above: Order Comment: Speci men Type: BLOOD SPECIMENOrdering Facility: [facility] Address: [address] [place] [address] Performed By: #### 5 7021-8 ####[facility] LABORATORYCLIA [id number] [place] [address] [place] WBC (Bld) [#/Vol] 7.71 10*3/uL Normal 3.70-11.00 [facility] Comment on above: Order Comment: Speci men Type: BLOOD SPECIMENOrdering Facility: [facility] Address: [address] [place] [address] Performed By: #### 5 7021-8 ####[facility] LABORATORYCLIA [id number] [place] [address] [place] CNDSon 08-19-2021 CNDS Normal [facility] CONSULT PROGon 08-19-2021 CONSULT PROG Normal [facility] THERAPY NTon 08-19-2021 THERAPY NT Normal [facility] Basic metabolic 2000 panelon 08-18-2021 Anion gap [Moles/Vol] 11 mmol/L Normal 9-18 [facility] Comment on above: Order Comment: Speci men Type: BLOOD SPECIMENOrdering Facility: [facility] Address: [address] [place] [address] Performed By: #### 2 4321-2 ####[facility] LABORATORYCLIA [id number] [place] [address] [place] Calcium [Mass/Vol] 8.6 mg/dL Normal 8.5-10.2 [facility] Comment on above: Order Comment: Speci men Type: BLOOD SPECIMENOrdering Facility: [facility] Address: [address] [place] [address] Performed By: #### 2 4321-2 ####[facility] LABORATORYCLIA [id number] [place] [address] [place] Chloride [Moles/Vol] 98 mmol/L Normal 97-105 [facility] Comment on above: Order Comment: Speci men Type: BLOOD SPECIMENOrdering Facility: [facility] Address: [address] [place] [address] Performed By: #### 2 4321-2 ####[facility]ORATORYCLIA [id number] [place] [address] [place] CO2 [Moles/Vol] 28 mmol/L Normal 22-30 [facility] Comment on above: Order Comment: Speci men Type: BLOOD SPECIMENOrdering Facility: [facility] Address: [address] [place] [address] Performed By: #### 2 4321-2 ####[facility] LABORATORYCLIA [id number] [address] [place] Creatinine [Mass/Vol] 0.56 mg/dL Low 0.73-1.22 [facility] Comment on above: Order Comment: Speci men Type: BLOOD SPECIMENOrdering Facility: [facility] Address: [address] [place] [address] Performed By: #### 2 4321-2 ####[facility]PITALIA [id number] [address] ESTIMATED GLOMERULAR FILTRATION RATE 107 mL/min/1.73m??? Normal >=60 [facility] Comment on above: Order Comment: Speci men Type: BLOOD SPECIMENOrdering Facility: [facility] Address: [address] [place] [address] Result Comment: Luzmaria mated Glomerular Filtration Rate (eGFR) is calculated using the 2020 CKD-EPI creatinine equation. This equation utilizes serum creatinine, sex, and age as parameters. The creatinine assay has traceable calibration to isotope dilution-mass spectrometry. Refer to KDIGO guidelines for clinical interpretation. In patients with unstable renal function, e.g. those with acute kidney injury, the eGFR may not accurately reflect actual GFR. Performed By: #### 2 4321-2 ####[facility]ORATORYCLIA [id number] [address] [place] Glucose [Mass/Vol] 113 mg/dL High 74-99 [facility] Comment on above: Order Comment: Shira feldman Type: BLOOD SPECIMENOrdering Facility: [facility] Address: [address] [place] [address] Result Comment: The [place] Diabetes Association (ADA) provides guidance for cutoff values for fasting glucose and random glucose. The ADA defines fasting as no caloric intake for at least 8 hours. Fasting plasma glucose results between 100 to 125 mg/dL indicate increased risk for diabetes (prediabetes).Fasting plasma glucose results greater than or equal to 126 mg/dL meet the criteria for diagnosis of diabetes. In the absence of unequivocal hyperglycemia, results should be confirmed by repeat testing. In a patient with classic symptoms of hyperglycemia or hyperglycemic crisis, random plasma glucose results greater than or equal to 200 mg/dL meet the criteria for diagnosis of diabetes.Reference: Standards of Medical Care in Diabetes 2016, [place] [employer] Association. Diabetes Care. 2016.39(Suppl 1). Performed By: #### 2 4321-2 ####[facility] LABORATORYCLIA [id number] [place] [address] [place] Potassium [Moles/Vol] 3.5 mmol/L Low 3.7-5.1 [facility] Comment on above: Order Comment: Shira feldman Type: BLOOD SPECIMENOrdering Facility: [facility] Address: [address] [place] [address] Performed By: #### 2 1-2 ####[facility] LABORATORYCLIA [id number] [address] [place] Sodium [Moles/Vol] 137 mmol/L Normal 136-144 [facility] Comment on above: Order Comment: Shira feldman Type: BLOOD SPECIMENOrdering Facility: [facility] Address: [address] [place] [address] Performed By: #### 2 1-2 ####[facility] LABORATORYCLIA [id number] [address] [place] Urea nitrogen [Mass/Vol] 10 mg/dL Normal 9-24 [facility] Comment on above: Order Comment: Johni men Type: BLOOD SPECIMENOrdering Facility: [facility] Address: [address] [place] [address] Performed By: #### 2 4321-2 ####[facility] LABORATORYCLIA [id number] [place] [address] [place] CBC W Auto Differential pane l (Bld)on 08-18-2021 Basophils (Bld) [#/Vol] 10*3/uL Normal <0.11 [facility] Comment on above: Order Comment: Speci men Type: BLOOD SPECIMENOrdering Facility: [facility] Address: [address] [place] [address] Performed By: #### 5 7021-8 ####[facility] LABORATORYCLIA [id number] [address] STATES [facility] Basophils/100 WBC (Bld) 0.3 % Normal [facility] Comment on above: Order Comment: Speci men Type: BLOOD SPECIMENOrdering Facility: [facility] Address: [address] [place] [address] Performed By: #### 5 7021-8 ####[facility] LABORATORYCLIA [id number] [address] Differential cell count method Nom (Bld) Auto Normal [facility] Comment on above: Order Comment: Speci men Type: BLOOD SPECIMENOrdering Facility: [facility] Address: [address] [place] [address] Performed By: #### 5 7021-8 ####[facility] LABORATORYCLIA [id number] [address] [place] Eosinophils (Bld) [#/Vol] 0.37 10*3/uL Normal <0.46 [facility] Comment on above: Order Comment: Speci men Type: BLOOD SPECIMENOrdering Facility: [facility] Address: [address] [place] [address] Performed By: #### 5 7021-8 ####[facility] LABORATORYCLIA [id number] [address] STATES [facility] Eosinophils/100 WBC (Bld) 4.8 % Normal [facility] Comment on above: Order Comment: Speci men Type: BLOOD SPECIMENOrdering Facility: [facility] Address: [address] [place] [address] Performed By: #### 5 7021-8 ####[facility]ORATORYCLIA [id number] [address] [place] Erythrocyte distribution width (RBC) [Ratio] 17.5 % High 11.5-15.0 [facility] Comment on above: Order Comment: Speci men Type: BLOOD SPECIMENOrdering Facility: [facility] Address: [address] [place] [address] Performed By: #### 5 7021-8 ####[facility] LABORATORYCLIA [id number] [address] OF [facility] Hematocrit (Bld) [Volume fraction] 30.2 % Low 39.0-51.0 [facility] Comment on above: Order Comment: Speci men Type: BLOOD SPECIMENOrdering Facility: [facility] Address: [address] [place] [address] Performed By: #### 5 7021-8 ####[facility] LABORATORYCLIA [id number] [address] [place] Hemoglobin (Bld) [Mass/Vol] 9.5 g/dL Low 13.0-17.0 [facility] Comment on above: Order Comment: Speci men Type: BLOOD SPECIMENOrdering Facility: [facility] Address: [address] [place] [address] Performed By: #### 5 7021-8 ####[facility] LABORATORYCLIA [id number] [address] [place] IMMATURE GRAN % 0.4 % Normal [facility] Comment on above: Order Comment: Speci men Type: BLOOD SPECIMENOrdering Facility: [facility] Address: [address] [place] [address] Performed By: #### 5 7021-8 ####[facility] LABORATORYCLIA [id number] [address] IMMATURE GRAN ABS 0.03 k/uL Normal <0.10 [facility] Comment on above: Order Comment: Speci men Type: BLOOD SPECIMENOrdering Facility: [facility] Address: [address] [place] [address] Performed By: #### 5 7021-8 ####[facility] LABORATORYCLIA [id number] [address] [place] [facility] Lymphocytes (Bld) [#/Vol] 1.85 10*3/uL Normal 1.00-4.00 [facility] Comment on above: Order Comment: Speci men Type: BLOOD SPECIMENOrdering Facility: [facility] Address: [address] [place] [address] Performed By: #### 5 7021-8 ####[facility]ORATORYCLIA [id number] [address] Lymphocytes/100 WBC (Bld) 23.8 % Normal [facility] Comment on above: Order Comment: Speci men Type: BLOOD SPECIMENOrdering Facility: [facility] Address: [address] [place] [address] Performed By: #### 5 7021-8 ####[facility] LABORATORYCLIA [id number] [address] MCH (RBC) [Entitic mass] 29.5 pg Normal 26.0-34.0 [facility] Comment on above: Order Comment: Speci men Type: BLOOD SPECIMENOrdering Facility: [facility] Address: [address] [place] [address] Performed By: #### 5 7021-8 ####[facility]ORATORYCLIA [id number] [address] [place] MCHC (RBC) [Mass/Vol] 31.5 g/dL Normal 30.5-36.0 [facility] Comment on above: Order Comment: Speci men Type: BLOOD SPECIMENOrdering Facility: [facility] Address: [address] [place] [address] Performed By: #### 5 7021-8 ####[facility]ORATORYCLIA [id number] [address] MCV (RBC) [Entitic vol] 93.8 fL Normal 80.0-100.0 [facility] Comment on above: Order Comment: Speci men Type: BLOOD SPECIMENOrdering Facility: [facility] Address: [address] [address] Performed By: #### 5 7021-8 ####[facility]ORATORYCLIA [id number] [place] [address] [place] Monocytes (Bld) [#/Vol] 0.49 10*3/uL Normal <0.87 [facility] Comment on above: Order Comment: Speci men Type: BLOOD SPECIMENOrdering Facility: [facility] Address: [address] [place] [address] Performed By: #### 5 7021-8 ####[facility]ATORYCLIA [id number] [address] [place] Monocytes/100 WBC (Bld) 6.3 % Normal [facility] Comment on above: Order Comment: Speci men Type: BLOOD SPECIMENOrdering Facility: [facility] Address: [address] [place] [address] Performed By: #### 5 7021-8 ####[facility]ORATORYCLIA [id number] [address] [place] Neutrophils (Bld) [#/Vol] 5.00 10*3/uL Normal 1.45-7.50 [facility] Comment on above: Order Comment: Speci men Type: BLOOD SPECIMENOrdering Facility: [facility] Address: [address] [place] [address] Performed By: #### 5 7021-8 ####[facility]ORYCLIA [id number] [address] [place] Neutrophils/100 WBC (Bld) 64.4 % Normal [facility] Comment on above: Order Comment: Speci men Type: BLOOD SPECIMENOrdering Facility: [facility] Address: [address] [place] [address] Performed By: #### 5 7021-8 ####[facility]ORATORYCLIA [id number] [place] [address] [place] Nucleated RBC (Bld) [#/Vol] 10*3/uL Normal <0.01 [facility] Comment on above: Order Comment: Speci men Type: BLOOD SPECIMENOrdering Facility: [facility] Address: [address] [place] [address] Performed By: #### 5 7021-8 ####[facility]ORATORYCLIA [id number] [address] [place] [facility] Nucleated RBC/100 WBC (Bld) [Ratio] 0.0 /100 WBC Normal [facility] Comment on above: Order Comment: Speci men Type: BLOOD SPECIMENOrdering Facility: [facility] Address: [address] [place], [place] [address] Performed By: #### 5 7021-8 ####[facility]ORATORYCLIA [id number] [address] [place] Platelet mean volume (Bld) [Entitic vol] 9.1 fL Normal 9.0-12.7 [facility] Comment on above: Order Comment: Speci men Type: BLOOD SPECIMENOrdering Facility: [facility] Address: [address] [place], [place] [address] Performed By: #### 5 7021-8 ####[facility]ORATORYCLIA [id number] [address] [place] Platelets (Bld) [#/Vol] 391 10*3/uL Normal 150-400 [facility] Comment on above: Order Comment: Speci men Type: BLOOD SPECIMENOrdering Facility: [facility] Address: [address] [place], [place] [address] Performed By: #### 5 7021-8 ####[facility]ORATORYCLIA [id number] [address] [place] RBC (Bld) [#/Vol] 3.22 10*6/uL Low 4.20-6.00 [facility] Comment on above: Order Comment: Speci men Type: BLOOD SPECIMENOrdering Facility: [facility] Address: [address] [place], [place] [address] Performed By: #### 5 7021-8 ####[facility] LABORATORYCLIA [id number] [place] [address] [place] WBC (Bld) [#/Vol] 7.76 10*3/uL Normal 3.70-11.00 [facility] Comment on above: Order Comment: Speci men Type: BLOOD SPECIMENOrdering Facility: [facility] Address: [address] [place] [address] Performed By: #### 5 7021-8 ####[facility] LABORATORYCLIA [id number] [address] [place] CONSULT PROGon 08-18-2021 CONSULT PROG Normal [facility] CASE MANAGEMon 08-17-2021 CASE MANAGEM Normal [facility] CBC W Auto Differential pane l (Bld)on 08-17-2021 Basophils (Bld) [#/Vol] 0.04 10*3/uL Normal <0.11 [facility] Comment on above: Order Comment: Speci men Type: BLOOD SPECIMENOrdering Facility: [facility] Address: [address] [place] [address] Performed By: #### 5 7021-8 ####[facility]ORATORYCLIA [id number] [address] STATES [facility] Basophils/100 WBC (Bld) 0.5 % Normal [facility] Comment on above: Order Comment: Speci men Type: BLOOD SPECIMENOrdering Facility: [facility] Address: [address] [place] [address] Performed By: #### 5 7021-8 ####[facility]ORATORYCLIA [id number] [address] [place] Differential cell count method Nom (Bld) Auto Normal [facility] Comment on above: Order Comment: Speci men Type: BLOOD SPECIMENOrdering Facility: [facility] Address: [address] [place] [address] Performed By: #### 5 7021-8 ####[facility]ORATORYCLIA [id number] [place] [address] [place] Eosinophils (Bld) [#/Vol] 0.31 10*3/uL Normal <0.46 [facility] Comment on above: Order Comment: Speci men Type: BLOOD SPECIMENOrdering Facility: [facility] Address: [address] [place] [address] Performed By: #### 5 7021-8 ####[facility]ORATORYCLIA [id number] [address] Eosinophils/100 WBC (Bld) 3.7 % Normal [facility] Comment on above: Order Comment: Speci men Type: BLOOD SPECIMENOrdering Facility: [facility] Address: [address] [place] [address] Performed By: #### 5 7021-8 ####[facility]ORATORYCLIA [id number] [address] Erythrocyte distribution width (RBC) [Ratio] 17.4 % High 11.5-15.0 [facility] Comment on above: Order Comment: Speci men Type: BLOOD SPECIMENOrdering Facility: [facility] Address: [address] [place] [address] Performed By: #### 5 7021-8 ####[facility]ORATORYCLIA [id number] [address] [place] Hematocrit (Bld) [Volume fraction] 30.6 % Low 39.0-51.0 [facility] Comment on above: Order Comment: Speci men Type: BLOOD SPECIMENOrdering Facility: [facility] Address: [address] [place] [address] Performed By: #### 5 7021-8 ####[facility]ORATORYCLIA [id number] [address] [place] Hemoglobin (Bld) [Mass/Vol] 9.6 g/dL Low 13.0-17.0 [facility] Comment on above: Order Comment: Speci men Type: BLOOD SPECIMENOrdering Facility: [facility] Address: [address] [place] [address] Performed By: #### 5 7021-8 ####[facility]ATORYCLIA [id number] [address] IMMATURE GRAN % 0.2 % Normal [facility] Comment on above: Order Comment: Speci men Type: BLOOD SPECIMENOrdering Facility: [facility] Address: [address] [place] [address] Performed By: #### 5 7021-8 ####[facility]ORATORYCLIA [id number] [address] IMMATURE GRAN ABS <0.03 Normal <0.10 [facility] Comment on above: Order Comment: Speci men Type: BLOOD SPECIMENOrdering Facility: [facility] Address: [address] [place] [address] Performed By: #### 5 7021-8 ####[facility]ORATORYCLIA [id number] [address] Lymphocytes (Bld) [#/Vol] 1.66 10*3/uL Normal 1.00-4.00 [facility] Comment on above: Order Comment: Speci men Type: BLOOD SPECIMENOrdering Facility: [facility] Address: [address] [place] [address] Performed By: #### 5 7021-8 ####[facility]ATORYCLIA [id number] [address] Lymphocytes/100 WBC (Bld) 19.9 % Normal [facility] Comment on above: Order Comment: Speci men Type: BLOOD SPECIMENOrdering Facility: [facility] Address: [address] [place] [address] Performed By: #### 5 7021-8 ####[facility]ATORYCLIA [id number] [address] MCH (RBC) [Entitic mass] 28.9 pg Normal 26.0-34.0 [facility] Comment on above: Order Comment: Speci men Type: BLOOD SPECIMENOrdering Facility: [facility] Address: [address] Performed By: #### 5 7021-8 ####[facility]ORATORYCLIA [id number] [address] [place] MCHC (RBC) [Mass/Vol] 31.4 g/dL Normal 30.5-36.0 [facility] Comment on above: Order Comment: Speci men Type: BLOOD SPECIMENOrdering Facility: [facility] Address: [address] [place] [address] Performed By: #### 5 7021-8 ####[facility]ORATORYCLIA [id number] [address] [place] [facility] MCV (RBC) [Entitic vol] 92.2 fL Normal 80.0-100.0 [facility] Comment on above: Order Comment: Speci men Type: BLOOD SPECIMENOrdering Facility: [facility] Address: [address] [place] [address] Performed By: #### 5 7021-8 ####[facility]ORATORYCLIA [id number] [address] [place] Monocytes (Bld) [#/Vol] 0.52 10*3/uL Normal <0.87 [facility] Comment on above: Order Comment: Speci men Type: BLOOD SPECIMENOrdering Facility: [facility] Address: [address] [place] [address] Performed By: #### 5 7021-8 ####[facility]ORATORYCLIA [id number] [address] Monocytes/100 WBC (Bld) 6.2 % Normal [facility] Comment on above: Order Comment: Speci men Type: BLOOD SPECIMENOrdering Facility: [facility] Address: [address] [place] [address] Performed By: #### 5 7021-8 ####[facility]ORATORYCLIA [id number] [address] [place] Neutrophils (Bld) [#/Vol] 5.78 10*3/uL Normal 1.45-7.50 [facility] Comment on above: Order Comment: Speci men Type: BLOOD SPECIMENOrdering Facility: [facility] Address: [address] [place] [address] Performed By: #### 5 7021-8 ####[facility]ORATORYCLIA [id number] [address] Neutrophils/100 WBC (Bld) 69.5 % Normal [facility] Comment on above: Order Comment: Speci men Type: BLOOD SPECIMENOrdering Facility: [facility] Address: [address] [place] [address] Performed By: #### 5 7021-8 ####[facility]ORATORYCLIA [id number] [address] [place] Nucleated RBC (Bld) [#/Vol] 10*3/uL Normal <0.01 [facility] Comment on above: Order Comment: Speci men Type: BLOOD SPECIMENOrdering Facility: [facility] Address: [address] [place] [address] Performed By: #### 5 7021-8 ####[facility]ORATORYCLIA [id number] [address] [place] Nucleated RBC/100 WBC (Bld) [Ratio] 0.0 /100 WBC Normal [facility] Comment on above: Order Comment: Speci men Type: BLOOD SPECIMENOrdering Facility: [facility] Address: [address] [place] [address] Performed By: #### 5 7021-8 ####[facility] LABORATORYCLIA [id number] [place] [address] [place] Platelet mean volume (Bld) [Entitic vol] 9.2 fL Normal 9.0-12.7 [facility] Comment on above: Order Comment: Speci men Type: BLOOD SPECIMENOrdering Facility: [facility] Address: [address] [place] [address] Performed By: #### 5 7021-8 ####[facility]ORATORYCLIA [id number] [place] [address] [place] Platelets (Bld) [#/Vol] 379 10*3/uL Normal 150-400 [facility] Comment on above: Order Comment: Speci men Type: BLOOD SPECIMENOrdering Facility: [facility] Address: [address] [place] [address] Performed By: #### 5 7021-8 ####[facility]ORATORYCLIA [id number] [place] [address] [place] RBC (Bld) [#/Vol] 3.32 10*6/uL Low 4.20-6.00 [facility] Comment on above: Order Comment: Speci men Type: BLOOD SPECIMENOrdering Facility: [facility] Address: [address] [place] [address] Performed By: #### 5 7021-8 ####[facility]ORATORYCLIA [id number] [address] STATES [facility] WBC (Bld) [#/Vol] 8.33 10*3/uL Normal 3.70-11.00 [facility] Comment on above: Order Comment: Speci men Type: BLOOD SPECIMENOrdering Facility: [facility] Address: [address] [place] [address] Performed By: #### 5 7021-8 ####[facility] LABORATORYCLIA [id number] [address] [place] CONSULT PROGon 08-17-2021 CONSULT PROG Normal [facility] NUTRITIONon 08-17-2021 NUTRITION Normal [facility] Basic metabolic 2000 panelon 08-16-2021 Anion gap [Moles/Vol] 14 mmol/L Normal 9-18 [facility] Comment on above: Order Comment: Speci men Type: BLOOD SPECIMENOrdering Facility: [facility] Address: [address] [place] [address] Performed By: #### 2 4321-2, 03834-4 ####[facility] LABORATORYCLIA [id number] [address] [facility] Calcium [Mass/Vol] 8.8 mg/dL Normal 8.5-10.2 [facility] Comment on above: Order Comment: Speci men Type: BLOOD SPECIMENOrdering Facility: [facility] Address: [address] [place] [address] Performed By: #### 2 1-2, ####[facility] LABORATORYCLIA [id number] [address] [place] Chloride [Moles/Vol] 97 mmol/L Normal 97-105 [facility] Comment on above: Order Comment: Speci men Type: BLOOD SPECIMENOrdering Facility: [facility] Address: [address] [place] [address] Performed By: #### 2 2, ####[facility]ORATORYCLIA [id number] [address] [place] [facility] CO2 [Moles/Vol] 27 mmol/L Normal 22-30 [facility] Comment on above: Order Comment: Speci men Type: BLOOD SPECIMENOrdering Facility: [facility] Address: [address] [place] [address] Performed By: #### 2 2, ####[facility] LABORATORYCLIA [id number] [address] [place] Creatinine [Mass/Vol] 0.50 mg/dL Low 0.73-1.22 [facility] Comment on above: Order Comment: Speci men Type: BLOOD SPECIMENOrdering Facility: [facility] Address: [address] [place] [address] Performed By: #### 2 4320-2, ####[facility] LABORATORYCLIA [id number] [address] ESTIMATED GLOMERULAR FILTRATION RATE 110 mL/min/1.73m??? Normal >=60 [facility] Comment on above: Order Comment: Speci men Type: BLOOD SPECIMENOrdering Facility: [facility] Address: [address] [id number] Result Comment: Luzmaria mated Glomerular Filtration Rate (eGFR) is calculated using the 2020 CKD-EPI creatinine equation. This equation utilizes serum creatinine, sex, and age as parameters. The creatinine assay has traceable calibration to isotope dilution-mass spectrometry. Refer to KDIGO guidelines for clinical interpretation. In patients with unstable renal function, e.g. those with acute kidney injury, the eGFR may not accurately reflect actual GFR. Performed By: #### 2 43205-08, ####[facility] LABORATORYCLIA [id number] [place] [address] [place] Glucose [Mass/Vol] 101 mg/dL High 74-99 [facility] Comment on above: Order Comment: Shira feldman Type: BLOOD SPECIMENOrdering Facility: [facility] Address: [address] [place], [place] [id number] Result Comment: The [place] [employer] (ADA) provides guidance for cutoff values for fasting glucose and random glucose. The ADA defines fasting as no caloric intake for at least 8 hours. Fasting plasma glucose results between 100 to 125 mg/dL indicate increased risk for diabetes (prediabetes).Fasting plasma glucose results greater than or equal to 126 mg/dL meet the criteria for diagnosis of diabetes. In the absence of unequivocal hyperglycemia, results should be confirmed by repeat testing. In a patient with classic symptoms of hyperglycemia or hyperglycemic crisis, random plasma glucose results greater than or equal to 200 mg/dL meet the criteria for diagnosis of diabetes.Reference: Standards of Medical Care in Diabetes 2016, [place] [employer]. Diabetes Care. 2016.39(Suppl 1). Performed By: #### 2 432-, ####[facility] LABORATORYCLIA [id number] [place] [address] [place] Potassium [Moles/Vol] 3.6 mmol/L Low 3.7-5.1 [facility] Comment on above: Order Comment: Shira feldman Type: BLOOD SPECIMENOrdering Facility: [facility] Address: [address] [id number] Performed By: #### 2 432-, ####[facility] LABORATORYCLIA [id number] [place] [address] [place] Sodium [Moles/Vol] 138 mmol/L Normal 136-144 [facility] Comment on above: Order Comment: Speci men Type: BLOOD SPECIMENOrdering Facility: [facility] Address: [address] [place] [address] Performed By: #### 2 4321-2, 57359-5 ####[facility] LABORATORYCLIA [id number] [place] [address] [place] Urea nitrogen [Mass/Vol] 11 mg/dL Normal 9-24 [facility] Comment on above: Order Comment: Speci men Type: BLOOD SPECIMENOrdering Facility: [facility] Address: [address] [place] [address] Performed By: #### 2 4321-2, ####[facility] LABORATORYCLIA [id number] [address] [place] CASE MANAGEMon 08-16-2021 CASE MANAGEM Normal [facility] CBC W Auto Differential pane l (Bld)on 08-16-2021 Basophils (Bld) [#/Vol] 0.03 10*3/uL Normal <0.11 [facility] Comment on above: Order Comment: Speci men Type: BLOOD SPECIMENOrdering Facility: [facility] Address: [address] [place] [address] Performed By: #### 5 7021-8 ####[facility] LABORATORYCLIA [id number] [address] [place] Basophils/100 WBC (Bld) 0.4 % Normal [facility] Comment on above: Order Comment: Speci men Type: BLOOD SPECIMENOrdering Facility: [facility] Address: [address] [place] [address] Performed By: #### 5 7021-8 ####[facility]ORATORYCLIA [id number] [address] [place] Differential cell count method Nom (Bld) Auto Normal [facility] Comment on above: Order Comment: Speci men Type: BLOOD SPECIMENOrdering Facility: [facility] Address: [address] [address] Performed By: #### 5 7021-8 ####[facility] LABORATORYCLIA [id number] [address] Eosinophils (Bld) [#/Vol] 0.19 10*3/uL Normal <0.46 [facility] Comment on above: Order Comment: Speci men Type: BLOOD SPECIMENOrdering Facility: [facility] Address: [address] [place] [address] Performed By: #### 5 7021-8 ####[facility]ORATORYCLIA [id number] [address] Eosinophils/100 WBC (Bld) 2.5 % Normal [facility] Comment on above: Order Comment: Speci men Type: BLOOD SPECIMENOrdering Facility: [facility] Address: [address] [place] [address] Performed By: #### 5 7021-8 ####[facility] LABORATORYCLIA [id number] [address] Erythrocyte distribution width (RBC) [Ratio] 17.1 % High 11.5-15.0 [facility] Comment on above: Order Comment: Speci men Type: BLOOD SPECIMENOrdering Facility: [facility] Address: [address] [place] [address] Performed By: #### 5 7021-8 ####[facility]ORATORYCLIA [id number] [address] Hematocrit (Bld) [Volume fraction] 29.2 % Low 39.0-51.0 [facility] Comment on above: Order Comment: Speci men Type: BLOOD SPECIMENOrdering Facility: [facility] Address: [address] [place] [address] Performed By: #### 5 7021-8 ####[facility]ORATORYCLIA [id number] [address] Hemoglobin (Bld) [Mass/Vol] 9.0 g/dL Low 13.0-17.0 [facility] Comment on above: Order Comment: Speci men Type: BLOOD SPECIMENOrdering Facility: [facility] Address: [address] [place] [address] Performed By: #### 5 7021-8 ####[facility]ORATORYCLIA [id number] [address] IMMATURE GRAN % 0.3 % Normal [facility] Comment on above: Order Comment: Speci men Type: BLOOD SPECIMENOrdering Facility: [facility] Address: [address] [place] [address] Performed By: #### 5 7021-8 ####[facility]ORATORYCLIA [id number] [address] IMMATURE GRAN ABS <0.03 Normal <0.10 [facility] Comment on above: Order Comment: Speci men Type: BLOOD SPECIMENOrdering Facility: [facility] Address: [address] [place] [address] Performed By: #### 5 7021-8 ####[facility]ORATORYCLIA [id number] [address] Lymphocytes (Bld) [#/Vol] 1.41 10*3/uL Normal 1.00-4.00 [facility] Comment on above: Order Comment: Speci men Type: BLOOD SPECIMENOrdering Facility: [facility] Address: [address] [place] [address] Performed By: #### 5 7021-8 ####[facility]ATORYCLIA [id number] [address] Lymphocytes/100 WBC (Bld) 18.4 % Normal [facility] Comment on above: Order Comment: Speci men Type: BLOOD SPECIMENOrdering Facility: [facility] Address: [address] [place] [address] Performed By: #### 5 7021-8 ####[facility]ORATORYCLIA [id number] [address] MCH (RBC) [Entitic mass] 28.0 pg Normal 26.0-34.0 [facility] Comment on above: Order Comment: Speci men Type: BLOOD SPECIMENOrdering Facility: [facility] Address: [address] [place] [address] Performed By: #### 5 7021-8 ####[facility]ORATORYCLIA [id number] [address] MCHC (RBC) [Mass/Vol] 30.8 g/dL Normal 30.5-36.0 [facility] Comment on above: Order Comment: Speci men Type: BLOOD SPECIMENOrdering Facility: [facility] Address: [address] [place] [address] Performed By: #### 5 7021-8 ####[facility]ORATORYCLIA [id number] [address] MCV (RBC) [Entitic vol] 91.0 fL Normal 80.0-100.0 [facility] Comment on above: Order Comment: Speci men Type: BLOOD SPECIMENOrdering Facility: [facility] Address: [address] [place] [address] Performed By: #### 5 7021-8 ####[facility]ORATORYCLIA [id number] [address] Monocytes (Bld) [#/Vol] 0.47 10*3/uL Normal <0.87 [facility] Comment on above: Order Comment: Speci men Type: BLOOD SPECIMENOrdering Facility: [facility] Address: [address] [place] [address] Performed By: #### 5 7021-8 ####[facility]ORATORYCLIA [id number] [address] Monocytes/100 WBC (Bld) 6.1 % Normal [facility] Comment on above: Order Comment: Speci men Type: BLOOD SPECIMENOrdering Facility: [facility] Address: [address] [place] [address] Performed By: #### 5 7021-8 ####[facility]ATORYCLIA [id number] [address] [place] Neutrophils (Bld) [#/Vol] 5.55 10*3/uL Normal 1.45-7.50 [facility] Comment on above: Order Comment: Speci men Type: BLOOD SPECIMENOrdering Facility: [facility] Address: [address] [place] [address] Performed By: #### 5 7021-8 ####[facility]ORATORYCLIA [id number] [address] Neutrophils/100 WBC (Bld) 72.3 % Normal [facility] Comment on above: Order Comment: Speci men Type: BLOOD SPECIMENOrdering Facility: [facility] Address: [address] [place] [address] Performed By: #### 5 7021-8 ####[facility]ORATORYCLIA [id number] [address] [place] Nucleated RBC (Bld) [#/Vol] 10*3/uL Normal <0.01 [facility] Comment on above: Order Comment: Speci men Type: BLOOD SPECIMENOrdering Facility: [facility] Address: [address] [place] [address] Performed By: #### 5 7021-8 ####[facility]ORATORYCLIA [id number] [address] Nucleated RBC/100 WBC (Bld) [Ratio] 0.0 /100 WBC Normal [facility] Comment on above: Order Comment: Speci men Type: BLOOD SPECIMENOrdering Facility: [facility] Address: [address] [place] [address] Performed By: #### 5 7021-8 ####[facility]ORATORYCLIA [id number] [address] [place] Platelet mean volume (Bld) [Entitic vol] 9.3 fL Normal 9.0-12.7 [facility] Comment on above: Order Comment: Speci men Type: BLOOD SPECIMENOrdering Facility: [facility] Address: [address] [place] [address] Performed By: #### 5 7021-8 ####[facility]ORATORYCLIA [id number] [place] [address] [place] Platelets (Bld) [#/Vol] 319 10*3/uL Normal 150-400 [facility] Comment on above: Order Comment: Speci men Type: BLOOD SPECIMENOrdering Facility: [facility] Address: [address] [place] [address] Performed By: #### 5 7021-8 ####[facility] LABORATORYCLIA [id number] [place] [address] [place] RBC (Bld) [#/Vol] 3.21 10*6/uL Low 4.20-6.00 [facility] Comment on above: Order Comment: Speci men Type: BLOOD SPECIMENOrdering Facility: [facility] Address: [address] [place] [address] Performed By: #### 5 7021-8 ####[facility]ORATORYCLIA [id number] [address] [place] WBC (Bld) [#/Vol] 7.67 10*3/uL Normal 3.70-11.00 [facility] Comment on above: Order Comment: Speci men Type: BLOOD SPECIMENOrdering Facility: [facility] Address: [address] [place], [place] [address] Performed By: #### 5 7021-8 ####[facility]ORATORYCLIA [id number] [address] [place] Basophils (Bld) [#/Vol] 0.04 10*3/uL Normal <0.11 [facility] Comment on above: Order Comment: Speci men Type: BLOOD SPECIMENOrdering Facility: [facility] Address: [address] [place], [place] [address] Performed By: #### 5 7021-8 ####[facility]ATORYCLIA [id number] [address] STATES [facility] Basophils/100 WBC (Bld) 0.5 % Normal [facility] Comment on above: Order Comment: Speci men Type: BLOOD SPECIMENOrdering Facility: [facility] Address: [address] [place] [address] Performed By: #### 5 7021-8 ####[facility]ORATORYCLIA [id number] [address] Differential cell count method Nom (Bld) Auto Normal [facility] Comment on above: Order Comment: Speci men Type: BLOOD SPECIMENOrdering Facility: [facility] Address: [address] [place] [address] Performed By: #### 5 7021-8 ####[facility]ORATORYCLIA [id number] [address] [place] Eosinophils (Bld) [#/Vol] 0.19 10*3/uL Normal <0.46 [facility] Comment on above: Order Comment: Speci men Type: BLOOD SPECIMENOrdering Facility: [facility] Address: [address] [place] [address] Performed By: #### 5 7021-8 ####[facility]ORATORYCLIA [id number] [address] Eosinophils/100 WBC (Bld) 2.5 % Normal [facility] Comment on above: Order Comment: Speci men Type: BLOOD SPECIMENOrdering Facility: [facility] Address: [address] [place] [address] Performed By: #### 5 7021-8 ####[facility]ATORYCLIA [id number] [address] Erythrocyte distribution width (RBC) [Ratio] 17.2 % High 11.5-15.0 [facility] Comment on above: Order Comment: Speci men Type: BLOOD SPECIMENOrdering Facility: [facility] Address: [address] [place] [address] Performed By: #### 5 7021-8 ####[facility]ORATORYCLIA [id number] [address] Hematocrit (Bld) [Volume fraction] 29.5 % Low 39.0-51.0 [facility] Comment on above: Order Comment: Speci men Type: BLOOD SPECIMENOrdering Facility: [facility] Address: [address] [place] [address] Performed By: #### 5 7021-8 ####[facility]ORATORYCLIA [id number] [address] Hemoglobin (Bld) [Mass/Vol] 9.2 g/dL Low 13.0-17.0 [facility] Comment on above: Order Comment: Speci men Type: BLOOD SPECIMENOrdering Facility: [facility] Address: [address] [place] [address] Performed By: #### 5 7021-8 ####[facility]ORATORYCLIA [id number] [address] IMMATURE GRAN % 0.4 % Normal [facility] Comment on above: Order Comment: Speci men Type: BLOOD SPECIMENOrdering Facility: [facility] Address: [address] [place] [address] Performed By: #### 5 7021-8 ####[facility]ORATORYCLIA [id number] [address] IMMATURE GRAN ABS 0.03 k/uL Normal <0.10 [facility] Comment on above: Order Comment: Speci men Type: BLOOD SPECIMENOrdering Facility: [facility] Address: [address] [place] [address] Performed By: #### 5 7021-8 ####[facility]ORATORYCLIA [id number] [address] [place] Lymphocytes (Bld) [#/Vol] 1.50 10*3/uL Normal 1.00-4.00 [facility] Comment on above: Order Comment: Speci men Type: BLOOD SPECIMENOrdering Facility: [facility] Address: [address] [place] [address] Performed By: #### 5 7021-8 ####[facility]ORATORYCLIA [id number] [address] Lymphocytes/100 WBC (Bld) 19.7 % Normal [facility] Comment on above: Order Comment: Speci men Type: BLOOD SPECIMENOrdering Facility: [facility] Address: [address] [place] [address] Performed By: #### 5 7021-8 ####[facility]ORATORYCLIA [id number] [address] [place] MCH (RBC) [Entitic mass] 28.3 pg Normal 26.0-34.0 [facility] Comment on above: Order Comment: Speci men Type: BLOOD SPECIMENOrdering Facility: [facility] Address: [address] [place] [address] Performed By: #### 5 7021-8 ####[facility]ORATORYCLIA [id number] [address] MCHC (RBC) [Mass/Vol] 31.2 g/dL Normal 30.5-36.0 [facility] Comment on above: Order Comment: Speci men Type: BLOOD SPECIMENOrdering Facility: [facility] Address: [address] [place] [address] Performed By: #### 5 7021-8 ####[facility]ORATORYCLIA [id number] [address] STATES [facility] MCV (RBC) [Entitic vol] 90.8 fL Normal 80.0-100.0 [facility] Comment on above: Order Comment: Speci men Type: BLOOD SPECIMENOrdering Facility: [facility] Address: [address] [place] [address] Performed By: #### 5 7021-8 ####[facility]ORATORYCLIA [id number] [address] [place] Monocytes (Bld) [#/Vol] 0.49 10*3/uL Normal <0.87 [facility] Comment on above: Order Comment: Speci men Type: BLOOD SPECIMENOrdering Facility: [facility] Address: [address] [address] Performed By: #### 5 7021-8 ####[facility]ORATORYCLIA [id number] [place] [address] [place] Monocytes/100 WBC (Bld) 6.4 % Normal [facility] Comment on above: Order Comment: Speci men Type: BLOOD SPECIMENOrdering Facility: [facility] Address: [address] [place] [address] Performed By: #### 5 7021-8 ####[facility]ORATORYCLIA [id number] [address] [place] Neutrophils (Bld) [#/Vol] 5.38 10*3/uL Normal 1.45-7.50 [facility] Comment on above: Order Comment: Speci men Type: BLOOD SPECIMENOrdering Facility: [facility] Address: [address] [place] [address] Performed By: #### 5 7021-8 ####[facility]ORATORYCLIA [id number] [address] [place] Neutrophils/100 WBC (Bld) 70.5 % Normal [facility] Comment on above: Order Comment: Speci men Type: BLOOD SPECIMENOrdering Facility: [facility] Address: [address] [address] Performed By: #### 5 7021-8 ####[facility]ORATORYCLIA [id number] [place] [address] [place] Nucleated RBC (Bld) [#/Vol] 10*3/uL Normal <0.01 [facility] Comment on above: Order Comment: Speci men Type: BLOOD SPECIMENOrdering Facility: [facility] Address: [address] [place] [address] Performed By: #### 5 7021-8 ####[facility]ORATORYCLIA [id number] [address] Nucleated RBC/100 WBC (Bld) [Ratio] 0.0 /100 WBC Normal [facility] Comment on above: Order Comment: Speci men Type: BLOOD SPECIMENOrdering Facility: [facility] Address: [address] [place] [address] Performed By: #### 5 7021-8 ####[facility]ORATORYCLIA [id number] [address] [place] Platelet mean volume (Bld) [Entitic vol] 9.0 fL Normal 9.0-12.7 [facility] Comment on above: Order Comment: Speci men Type: BLOOD SPECIMENOrdering Facility: [facility] Address: [address] [place] [address] Performed By: #### 5 7021-8 ####[facility]ORATORYCLIA [id number] [address] [place] Platelets (Bld) [#/Vol] 316 10*3/uL Normal 150-400 [facility] Comment on above: Order Comment: Speci men Type: BLOOD SPECIMENOrdering Facility: [facility] Address: [address] [place] [address] Performed By: #### 5 7021-8 ####[facility]ORATORYCLIA [id number] [address] [place] RBC (Bld) [#/Vol] 3.25 10*6/uL Low 4.20-6.00 [facility] Comment on above: Order Comment: Speci men Type: BLOOD SPECIMENOrdering Facility: [facility] Address: [address] [place] [address] Performed By: #### 5 7021-8 ####[facility]ORATORYCLIA [id number] [address] [place] WBC (Bld) [#/Vol] 7.63 10*3/uL Normal 3.70-11.00 [facility] Comment on above: Order Comment: Speci men Type: BLOOD SPECIMENOrdering Facility: [facility] Address: [address] [place] [address] Performed By: #### 5 7021-8 ####[facility]ORATORYCLIA [id number] [place] [address] [place] Basophils (Bld) [#/Vol] Normal <0.11 [facility] Comment on above: Order Comment: Speci men Type: BLOOD SPECIMENOrdering Facility: [facility] Address: [address] [place] [address] Result Comment: Carolina Owens RN informed lab after results autoverified that she rd on the wrong patient. Lab to credit. Nurse to redraw on correct patient.Corrected result: Previously reported as 0.04 k/uL on 08/16/2021 at 4:44 AM EDT. Performed By: #### 5 7021-8 ####[facility]ORATORYCLIA [id number] [address] [place] Basophils/100 WBC (Bld) Normal [facility] Comment on above: Order Comment: Speci francia Type: BLOOD SPECIMENOrdering Facility: [facility] Address: [address] [place] [address] Result Comment: Tati ected result: Previously reported as 0.4 % on 08/16/2021 at 4:44 AM EDT. Performed By: #### 5 7021-8 ####[facility]ORATORYCLIA [id number] [address] [place] CBC W Differential panel, method unspecified (Bld) Normal [facility] Comment on above: Order Comment: Speci francia Type: BLOOD SPECIMENOrdering Facility: [facility] Address: [address] [place] [address] Result Comment: Carolina Owens RN informed lab after results autoverified that she rd on the wrong patient. Lab to credit. Nurse to redraw on correct patient. Performed By: #### 5 7021-8 ####[facility]ORATORYCLIA [id number] [address] Differential cell count method Nom (Bld) Normal [facility] Comment on above: Order Comment: Speci men Type: BLOOD SPECIMENOrdering Facility: [facility] Address: [address] [place] [address] Result Comment: Carolina Owens RN informed lab after results autoverified that she rd on the wrong patient. Lab to credit. Nurse to redraw on correct patient.Corrected result: Previously reported as Auto on 08/16/2021 at 4:44 AM EDT. Performed By: #### 5 7021-8 ####[facility]ORATORYCLIA [id number] [address] Eosinophils (Bld) [#/Vol] Normal <0.46 [facility] Comment on above: Order Comment: Speci men Type: BLOOD SPECIMENOrdering Facility: [facility] Address: [address] [place] [address] Result Comment: Carolina Owens RN informed lab after results autoverified that she rd on the wrong patient. Lab to credit. Nurse to redraw on correct patient.Corrected result: Previously reported as 0.07 k/uL on 08/16/2021 at 4:44 AM EDT. Performed By: #### 5 7021-8 ####[facility]ORATORYCLIA [id number] [address] STATES [facility] Eosinophils/100 WBC (Bld) Normal [facility] Comment on above: Order Comment: Speci men Type: BLOOD SPECIMENOrdering Facility: [facility] Address: [address] [place] [address] Result Comment: Carolina Owens RN informed lab after results autoverified that she rd on the wrong patient. Lab to credit. Nurse to redraw on correct patient.Corrected result: Previously reported as 0.7 % on 08/16/2021 at 4:44 AM EDT. Performed By: #### 5 7021-8 ####[facility]ORATORYCLIA [id number] [address] Erythrocyte distribution width (RBC) [Ratio] Normal 11.5-15.0 [facility] Comment on above: Order Comment: Speci men Type: BLOOD SPECIMENOrdering Facility: [facility] Address: [address] [place] [address] Result Comment: Carolina Owens RN informed lab after results autoverified that she rd on the wrong patient. Lab to credit. Nurse to redraw on correct patient.Corrected result: Previously reported as 14.2 % on 08/16/2021 at 4:44 AM EDT. Performed By: #### 5 7021-8 ####[facility]ORATORYCLIA [id number] [address] Hematocrit (Bld) [Volume fraction] Normal 39.0-51.0 [facility] Comment on above: Order Comment: Speci [facility] Type: BLOOD SPECIMENOrdering Facility: [facility] Address: [address] [place] [address] Result Comment: Carolina Owens RN informed lab after results autoverified that she rd on the wrong patient. Lab to credit. Nurse to redraw on correct patient.Corrected result: Previously reported as 34.3 % on 08/16/2021 at 4:44 AM EDT. Performed By: #### [id number] ####[facility] LABORATORYCLIA [id number] [address] [place] Hemoglobin (Bld) [Mass/Vol] Normal 13.0-17.0 [facility] Comment on above: Order Comment: Spec[facility] Type: BLOOD SPECIMENOrdering Facility: [facility] Address: [address] [place] [address] Result Comment: Carolina Owens RN informed lab after results autoverified that she rd on the wrong patient. Lab to credit. Nurse to redraw on correct patient.Corrected result: Previously reported as 11.2 g/dL on 08/16/2021 at 4:44 AM EDT. Performed By: #### 5 7021-8 ####[facility] LABORATORYCLIA [id number] [address] OF [facility] IMMATURE GRAN % Normal [facility] Comment on above: Order Comment: Speci men Type: BLOOD SPECIMENOrdering Facility: [facility] Address: [address] [place] [address] Result Comment: Carolina Owens RN informed lab after results autoverified that she rd on the wrong patient. Lab to credit. Nurse to redraw on correct patient.Corrected result: Previously reported as 0.8 % on 08/16/2021 at 4:44 AM EDT. Performed By: #### 5 7021-8 ####[facility] LABORATORYCLIA [id number] [address] IMMATURE GRAN ABS Normal <0.10 [facility] Comment on above: Order Comment: Speci men Type: BLOOD SPECIMENOrdering Facility: [facility] Address: [address] [place] [address] Result Comment: Tati ected result: Previously reported as 0.08 k/uL on 08/16/2021 at 4:44 AM EDT. Performed By: #### 5 7021-8 ####[facility] LABORATORYCLIA [id number] [place] [address] [place] Lymphocytes (Bld) [#/Vol] Normal 1.00-4.00 [facility] Comment on above: Order Comment: Speci men Type: BLOOD SPECIMENOrdering Facility: [facility] Address: [address] [place] [address] Result Comment: Carolina Owens RN informed lab after results autoverified that she rd on the wrong patient. Lab to credit. Nurse to redraw on correct patient.Corrected result: Previously reported as 1.17 k/uL on 08/16/2021 at 4:44 AM EDT. Performed By: #### 5 7021-8 ####[facility] LABORATORYCLIA [id number] [address] [place] Lymphocytes/100 WBC (Bld) Normal [facility] Comment on above: Order Comment: Speci men Type: BLOOD SPECIMENOrdering Facility: [facility] Address: [address] [place] [address] Result Comment: Carolina Owens RN informed lab after results autoverified that she rd on the wrong patient. Lab to credit. Nurse to redraw on correct patient.Corrected result: Previously reported as 12.0 % on 08/16/2021 at 4:44 AM EDT. Performed By: #### 5 7021-8 ####[facility] LABORATORYCLIA [id number] [address] STATES OF [facility] MCHC (RBC) [Mass/Vol] Normal 30.5-36.0 [facility] Comment on above: Order Comment: Speci men Type: BLOOD SPECIMENOrdering Facility: [facility] Address: [address] [place] [address] Result Comment: Carolina Owens RN informed lab after results autoverified that she rd on the wrong patient. Lab to credit. Nurse to redraw on correct patient.Corrected result: Previously reported as 32.7 g/dL on 08/16/2021 at 4:44 AM EDT. Performed By: #### 5 7021-8 ####[facility] LABORATORYCLIA [id number] [address] STATES [place] [facility] MCV (RBC) [Entitic vol] Normal 80.0-100.0 [facility] Comment on above: Order Comment: Speci men Type: BLOOD SPECIMENOrdering Facility: [facility] Address: [address] [place] [address] Result Comment: Carolina Owens RN informed lab after results autoverified that she rd on the wrong patient. Lab to credit. Nurse to redraw on correct patient.Corrected result: Previously reported as 94.2 fL on 08/16/2021 at 4:44 AM EDT. Performed By: #### 5 7021-8 ####[facility] LABORATORYCLIA [id number] [address] [place] Monocytes (Bld) [#/Vol] Normal <0.87 [facility] Comment on above: Order Comment: Speci men Type: BLOOD SPECIMENOrdering Facility: [facility] Address: [address] [place] [address] Result Comment: Carolina Owens RN informed lab after results autoverified that she rd on the wrong patient. Lab to credit. Nurse to redraw on correct patient.Corrected result: Previously reported as 0.99 k/uL on 08/16/2021 at 4:44 AM EDT. Performed By: #### 5 7021-8 ####[facility]ORATORYCLIA [id number] [address] [place] Monocytes/100 WBC (Bld) Normal [facility] Comment on above: Order Comment: Speci men Type: BLOOD SPECIMENOrdering Facility: [facility] Address: [address] [place] [address] Result Comment: Carolina Owens RN informed lab after results autoverified that she rd on the wrong patient. Lab to credit. Nurse to redraw on correct patient.Corrected result: Previously reported as 10.2 % on 08/16/2021 at 4:44 AM EDT. Performed By: #### 5 7021-8 ####[facility] LABORATORYCLIA [id number] [place] [address] [place] Neutrophils (Bld) [#/Vol] Normal 1.45-7.50 [facility] Comment on above: Order Comment: Speci men Type: BLOOD SPECIMENOrdering Facility: [facility] Address: [address] [place] [address] Result Comment: Carolina Owens RN informed lab after results autoverified that she rd on the wrong patient. Lab to credit. Nurse to redraw on correct patient.Corrected result: Previously reported as 7.40 k/uL on 08/16/2021 at 4:44 AM EDT. Performed By: #### 5 7021-8 ####[facility] LABORATORYCLIA [id number] [place] [address] [place] Neutrophils/100 WBC (Bld) Normal [facility] Comment on above: Order Comment: Speci men Type: BLOOD SPECIMENOrdering Facility: [facility] Address: [address] [address] Result Comment: Carolina Owens RN informed lab after results autoverified that she rd on the wrong patient. Lab to credit. Nurse to redraw on correct patient.Corrected result: Previously reported as 75.9 % on 08/16/2021 at 4:44 AM EDT. Performed By: #### 5 7021-8 ####[facility] LABORATORYCLIA [id number] [place] [address] [place] Platelet mean volume (Bld) [Entitic vol] Normal 9.0-12.7 [facility] Comment on above: Order Comment: Speci men Type: BLOOD SPECIMENOrdering Facility: [facility] Address: [address] [place] [address] Result Comment: Carolina Owens RN informed lab after results autoverified that she rd on the wrong patient. Lab to credit. Nurse to redraw on correct patient.Corrected result: Previously reported as 9.1 fL on 08/16/2021 at 4:44 AM EDT. Performed By: #### 5 7021-8 ####[facility] LABORATORYCLIA [id number] [place] [address] [place] Platelets (Bld) [#/Vol] Normal 150-400 [facility] Comment on above: Order Comment: Speci men Type: BLOOD SPECIMENOrdering Facility: [facility] Address: [address] [place] [address] Result Comment: Carolina Owens RN informed lab after results autoverified that she rd on the wrong patient. Lab to credit. Nurse to redraw on correct patient.Corrected result: Previously reported as 338 k/uL on 08/16/2021 at 4:44 AM EDT. Performed By: #### 5 7021-8 ####[facility] LABORATORYCLIA [id number] [address] [place] RBC (Bld) [#/Vol] Normal 4.20-6.00 [facility] Comment on above: Order Comment: Speci men Type: BLOOD SPECIMENOrdering Facility: [facility] Address: [address] [place] [address] Result Comment: Carolina Owens RN informed lab after results autoverified that she rd on the wrong patient. Lab to credit. Nurse to redraw on correct patient.Corrected result: Previously reported as 3.64 m/uL on 08/16/2021 at 4:44 AM EDT. Performed By: #### 5 7021-8 ####[facility] LABORATORYCLIA [id number] [address] WBC (Bld) [#/Vol] Normal 3.70-11.00 [facility] Comment on above: Order Comment: Speci men Type: BLOOD SPECIMENOrdering Facility: [facility] Address: [address] [place] [address] Result Comment: Carolina Owens RN informed lab after results autoverified that she rd on the wrong patient. Lab to credit. Nurse to redraw on correct patient.Corrected result: Previously reported as 9.75 k/uL on 08/16/2021 at 4:44 AM EDT. Performed By: #### 5 7021-8 ####[facility] LABORATORYCLIA [id number] [address] CONSULT PROGon 08-16-2021 CONSULT PROG Normal [facility] Magnesium SerPl-mCncon 08-16 Magnesium [Mass/Vol] 1.8 mg/dL Normal 1.7-2.3 [facility] Comment on above: Order Comment: Speci men Type: BLOOD SPECIMENOrdering Facility: [facility] Address: [address] [place] [address] Performed By: #### 2 4321-2, 59270-3 ####[facility] LABORATORYCLIA [id number] [address] [place] NURSING PROGon 08-16-2021 NURSING PROG Normal [facility] Basic metabolic 2000 panelon 08-15-2021 Anion gap [Moles/Vol] 13 mmol/L Normal 9-18 [facility] Comment on above: Order Comment: Speci men Type: BLOOD SPECIMENOrdering Facility: [facility] Address: [address] [place] [address] Performed By: #### 2 4321-2 ####[facility] LABORATORYCLIA [id number] [place] [address] [place] Calcium [Mass/Vol] 9.0 mg/dL Normal 8.5-10.2 [facility] Comment on above: Order Comment: Speci men Type: BLOOD SPECIMENOrdering Facility: [facility] Address: [address] [place] [address] Performed By: #### 2 4321-2 ####[facility] LABORATORYCLIA [id number] [address] [place] Chloride [Moles/Vol] 95 mmol/L Low 97-105 [facility] Comment on above: Order Comment: Speci men Type: BLOOD SPECIMENOrdering Facility: [facility] Address: [address] [place] [address] Performed By: #### 2 4321-2 ####[facility] LABORATORYCLIA [id number] [place] [address] [place] CO2 [Moles/Vol] 28 mmol/L Normal 22-30 [facility] Comment on above: Order Comment: Speci men Type: BLOOD SPECIMENOrdering Facility: [facility] Address: [address] [place] [address] Performed By: #### 2 4321-2 ####[facility] LABORATORYCLIA [id number] [address] [place] Creatinine [Mass/Vol] 0.50 mg/dL Low 0.73-1.22 [facility] Comment on above: Order Comment: Speci men Type: BLOOD SPECIMENOrdering Facility: [facility] Address: [address] [place] [address] Performed By: #### 2 4321-2 ####[facility] LABORATORYCLIA [id number] [address] [place] ESTIMATED GLOMERULAR FILTRATION RATE 110 mL/min/1.73m??? Normal >=60 [facility] Comment on above: Order Comment: Shira feldman Type: BLOOD SPECIMENOrdering Facility: [facility] Address: [address] [id number] Result Comment: Luzmaria mated Glomerular Filtration Rate (eGFR) is calculated using the 2020 CKD-EPI creatinine equation. This equation utilizes serum creatinine, sex, and age as parameters. The creatinine assay has traceable calibration to isotope dilution-mass spectrometry. Refer to KDIGO guidelines for clinical interpretation. In patients with unstable renal function, e.g. those with acute kidney injury, the eGFR may not accurately reflect actual GFR. Performed By: #### 2 4321-2 ####[facility] LABORATORYCLIA [id number] [place] [address] [place] Glucose [Mass/Vol] 106 mg/dL High 74-99 [facility] Comment on above: Order Comment: Shira feldman Type: BLOOD SPECIMENOrdering Facility: [facility] Address: [address] [place], [place] [id number] Result Comment: The [place] [employer] Association (ADA) provides guidance for cutoff values for fasting glucose and random glucose. The ADA defines fasting as no caloric intake for at least 8 hours. Fasting plasma glucose results between 100 to 125 mg/dL indicate increased risk for diabetes (prediabetes).Fasting plasma glucose results greater than or equal to 126 mg/dL meet the criteria for diagnosis of diabetes. In the absence of unequivocal hyperglycemia, results should be confirmed by repeat testing. In a patient with classic symptoms of hyperglycemia or hyperglycemic crisis, random plasma glucose results greater than or equal to 200 mg/dL meet the criteria for diagnosis of diabetes.Reference: Standards of Medical Care in Diabetes 2016, [place] [employer]. Diabetes Care. 2016.39(Suppl 1). Performed By: #### 2 4321-2 ####[facility] LABORATORYCLIA [id number] [place] [address] [place] Potassium [Moles/Vol] 3.3 mmol/L Low 3.7-5.1 [facility] Comment on above: Order Comment: Shira feldman Type: BLOOD SPECIMENOrdering Facility: [facility] Address: [address] [phone] Performed By: #### 2 4321-2 ####[facility] LABORATORYCLIA [id number] [address] [place] Sodium [Moles/Vol] 136 mmol/L Normal 136-144 [facility] Comment on above: Order Comment: Speci men Type: BLOOD SPECIMENOrdering Facility: [facility] Address: [address] [place] [address] Performed By: #### 2 4321-2 ####[facility] LABORATORYCLIA [id number] [address] [place] Urea nitrogen [Mass/Vol] 11 mg/dL Normal 9-24 [facility] Comment on above: Order Comment: Speci men Type: BLOOD SPECIMENOrdering Facility: [facility] Address: [address] [place] [address] Performed By: #### 2 4321-2 ####[facility] LABORATORYCLIA [id number] [address] STATES [place] [facility] CASE MANAGEMon 08-15-2021 CASE MANAGEM Normal [facility] CBC W Auto Differential pane l (Bld)on 08-15-2021 Basophils (Bld) [#/Vol] 0.03 10*3/uL Normal <0.11 [facility] Comment on above: Order Comment: Speci men Type: BLOOD SPECIMENOrdering Facility: [facility] Address: [address] [place] [address] Performed By: #### 5 7021-8 ####[facility] LABORATORYCLIA [id number] [address] [place] Basophils/100 WBC (Bld) 0.4 % Normal [facility] Comment on above: Order Comment: Speci men Type: BLOOD SPECIMENOrdering Facility: [facility] Address: [address] [place] [address] Performed By: #### 5 7021-8 ####[facility] LABORATORYCLIA [id number] [place] [address] [place] Differential cell count method Nom (Bld) Auto Normal [facility] Comment on above: Order Comment: Speci men Type: BLOOD SPECIMENOrdering Facility: [facility] Address: [address] [place] [address] Performed By: #### 5 7021-8 ####[facility] LABORATORYCLIA [id number] [place] [address] [place] Eosinophils (Bld) [#/Vol] 0.20 10*3/uL Normal <0.46 [facility] Comment on above: Order Comment: Speci men Type: BLOOD SPECIMENOrdering Facility: [facility] Address: [address] [place] [address] Performed By: #### 5 7021-8 ####[facility] LABORATORYCLIA [id number] [address] [place] Eosinophils/100 WBC (Bld) 2.5 % Normal [facility] Comment on above: Order Comment: Speci men Type: BLOOD SPECIMENOrdering Facility: [facility] Address: [address] [place] [address] Performed By: #### 5 7021-8 ####[facility] LABORATORYCLIA [id number] [address] [place] Erythrocyte distribution width (RBC) [Ratio] 16.7 % High 11.5-15.0 [facility] Comment on above: Order Comment: Speci men Type: BLOOD SPECIMENOrdering Facility: [facility] Address: [address] [place] [address] Performed By: #### 5 7021-8 ####[facility] LABORATORYCLIA [id number] [address] [place] Hematocrit (Bld) [Volume fraction] 30.3 % Low 39.0-51.0 [facility] Comment on above: Order Comment: Speci men Type: BLOOD SPECIMENOrdering Facility: [facility] Address: [address] [place] [address] Performed By: #### 5 7021-8 ####[facility] LABORATORYCLIA [id number] [address] OF [facility] Hemoglobin (Bld) [Mass/Vol] 9.4 g/dL Low 13.0-17.0 [facility] Comment on above: Order Comment: Speci men Type: BLOOD SPECIMENOrdering Facility: [facility] Address: [address] [place] [address] Performed By: #### 5 7021-8 ####[facility] LABORATORYCLIA [id number] [address] IMMATURE GRAN % 0.4 % Normal [facility] Comment on above: Order Comment: Speci men Type: BLOOD SPECIMENOrdering Facility: [facility] Address: [address] [place] [address] Performed By: #### 5 7021-8 ####[facility] LABORATORYCLIA [id number] [address] IMMATURE GRAN ABS 0.03 k/uL Normal <0.10 [facility] Comment on above: Order Comment: Speci men Type: BLOOD SPECIMENOrdering Facility: [facility] Address: [address] [place] [address] Performed By: #### 5 7021-8 ####[facility] LABORATORYCLIA [id number] [address] [place] Lymphocytes (Bld) [#/Vol] 1.50 10*3/uL Normal 1.00-4.00 [facility] Comment on above: Order Comment: Speci men Type: BLOOD SPECIMENOrdering Facility: [facility] Address: [address] [place] [address] Performed By: #### 5 7021-8 ####[facility] LABORATORYCLIA [id number] [address] Lymphocytes/100 WBC (Bld) 18.5 % Normal [facility] Comment on above: Order Comment: Speci men Type: BLOOD SPECIMENOrdering Facility: [facility] Address: [address] [place] [address] Performed By: #### 5 7021-8 ####[facility] LABORATORYCLIA [id number] [address] MCH (RBC) [Entitic mass] 29.0 pg Normal 26.0-34.0 [facility] Comment on above: Order Comment: Speci men Type: BLOOD SPECIMENOrdering Facility: [facility] Address: [address] [place] [address] Performed By: #### 5 7021-8 ####[facility] LABORATORYCLIA [id number] [address] MCHC (RBC) [Mass/Vol] 31.0 g/dL Normal 30.5-36.0 [facility] Comment on above: Order Comment: Speci men Type: BLOOD SPECIMENOrdering Facility: [facility] Address: [address] [place] [address] Performed By: #### 5 7021-8 ####[facility] LABORATORYCLIA [id number] [address] MCV (RBC) [Entitic vol] 93.5 fL Normal 80.0-100.0 [facility] Comment on above: Order Comment: Speci men Type: BLOOD SPECIMENOrdering Facility: [facility] Address: [address] [place] [address] Performed By: #### 5 7021-8 ####[facility] LABORATORYCLIA [id number] [address] Monocytes (Bld) [#/Vol] 0.47 10*3/uL Normal <0.87 [facility] Comment on above: Order Comment: Speci men Type: BLOOD SPECIMENOrdering Facility: [facility] Address: [address] [place] [address] Performed By: #### 5 7021-8 ####[facility] LABORATORYCLIA [id number] [address] Monocytes/100 WBC (Bld) 5.8 % Normal [facility] Comment on above: Order Comment: Speci men Type: BLOOD SPECIMENOrdering Facility: [facility] Address: [address] [address] Performed By: #### 5 7021-8 ####[facility] LABORATORYCLIA [id number] [address] [place] Neutrophils (Bld) [#/Vol] 5.87 10*3/uL Normal 1.45-7.50 [facility] Comment on above: Order Comment: Speci men Type: BLOOD SPECIMENOrdering Facility: [facility] Address: [address] [place] [address] Performed By: #### 5 7021-8 ####[facility]ORATORYCLIA [id number] [address] Neutrophils/100 WBC (Bld) 72.4 % Normal [facility] Comment on above: Order Comment: Speci men Type: BLOOD SPECIMENOrdering Facility: [facility] Address: [address] [place] [address] Performed By: #### 5 7021-8 ####[facility] LABORATORYCLIA [id number] [address] Nucleated RBC (Bld) [#/Vol] 10*3/uL Normal <0.01 [facility] Comment on above: Order Comment: Speci men Type: BLOOD SPECIMENOrdering Facility: [facility] Address: [address] [place] [address] Performed By: #### 5 7021-8 ####[facility]ORATORYCLIA [id number] [address] Nucleated RBC/100 WBC (Bld) [Ratio] 0.0 /100 WBC Normal [facility] Comment on above: Order Comment: Speci men Type: BLOOD SPECIMENOrdering Facility: [facility] Address: [address] [place] [address] Performed By: #### 5 7021-8 ####[facility] LABORATORYCLIA [id number] [address] Platelet mean volume (Bld) [Entitic vol] 9.4 fL Normal 9.0-12.7 [facility] Comment on above: Order Comment: Speci men Type: BLOOD SPECIMENOrdering Facility: [facility] Address: [address] [place] [address] Performed By: #### 5 7021-8 ####[facility] LABORATORYCLIA [id number] [place] [address] [place] Platelets (Bld) [#/Vol] 290 10*3/uL Normal 150-400 [facility] Comment on above: Order Comment: Speci men Type: BLOOD SPECIMENOrdering Facility: [facility] Address: [address] [place] [address] Performed By: #### 5 7021-8 ####[facility] LABORATORYCLIA [id number] [address] [place] RBC (Bld) [#/Vol] 3.24 10*6/uL Low 4.20-6.00 [facility] Comment on above: Order Comment: Speci men Type: BLOOD SPECIMENOrdering Facility: [facility] Address: [address] [place] [address] Performed By: #### 5 7021-8 ####[facility] LABORATORYCLIA [id number] [address] [place] WBC (Bld) [#/Vol] 8.10 10*3/uL Normal 3.70-11.00 [facility] Comment on above: Order Comment: Speci men Type: BLOOD SPECIMENOrdering Facility: [facility] Address: [address] [place] [address] Performed By: #### 5 7021-8 ####[facility] LABORATORYCLIA [id number] [address] THERAPY NTon 08-15-2021 THERAPY NT Normal [facility] THERAPY NT Normal [facility] THERAPY NT Normal [facility] Basic metabolic 2000 panelon 08-14-2021 Anion gap [Moles/Vol] 10 mmol/L Normal 9-18 [facility] Comment on above: Order Comment: Speci men Type: BLOOD SPECIMENOrdering Facility: [facility] Address: [address] [place] [address] Performed By: #### 2 4321-2 ####[facility]ORATORYCLIA [id number] [place] [address] [place] Calcium [Mass/Vol] 8.8 mg/dL Normal 8.5-10.2 [facility] Comment on above: Order Comment: Speci men Type: BLOOD SPECIMENOrdering Facility: [facility] Address: [address] [place] [address] Performed By: #### 2 4321-2 ####[facility] LABORATORYCLIA [id number] [place] [address] [place] Chloride [Moles/Vol] 92 mmol/L Low 97-105 [facility] Comment on above: Order Comment: Speci men Type: BLOOD SPECIMENOrdering Facility: [facility] Address: [address] [place] [address] Performed By: #### 2 4321-2 ####[facility] LABORATORYCLIA [id number] [place] [address] [place] CO2 [Moles/Vol] 29 mmol/L Normal 22-30 [facility] [facility] Comment on above: Order Comment: Speci men Type: BLOOD SPECIMENOrdering Facility: [facility] Address: [address] [place] [address] Performed By: #### 2 4321-2 ####[facility] LABORATORYCLIA [id number] [place] [address] [place] Creatinine [Mass/Vol] 0.49 mg/dL Low 0.73-1.22 [facility] Comment on above: Order Comment: Speci men Type: BLOOD SPECIMENOrdering Facility: [facility] Address: [address] [place] [address] Performed By: #### 2 4321-2 ####[facility]ORATORYCLIA [id number] [place] [address] [place] ESTIMATED GLOMERULAR FILTRATION RATE 111 mL/min/1.73m??? Normal >=60 [facility] Comment on above: Order Comment: Shira feldman Type: BLOOD SPECIMENOrdering Facility: [facility] Address: [address] [place] [address] Result Comment: Luzmaria mated Glomerular Filtration Rate (eGFR) is calculated using the 2020 CKD-EPI creatinine equation. This equation utilizes serum creatinine, sex, and age as parameters. The creatinine assay has traceable calibration to isotope dilution-mass spectrometry. Refer to KDIGO guidelines for clinical interpretation. In patients with unstable renal function, e.g. those with acute kidney injury, the eGFR may not accurately reflect actual GFR. Performed By: #### 2 4321-2 ####[facility] LABORATORYIA [id number] [place] [address] [place] Glucose [Mass/Vol] 104 mg/dL High 74-99 [facility] Comment on above: Order Comment: Shira feldman Type: BLOOD SPECIMENOrdering Facility: [facility] Address: [address] [place] [address] Result Comment: The [place] Diabetes Association (ADA) provides guidance for cutoff values for fasting glucose and random glucose. The ADA defines fasting as no caloric intake for at least 8 hours. Fasting plasma glucose results between 100 to 125 mg/dL indicate increased risk for diabetes (prediabetes).Fasting plasma glucose results greater than or equal to 126 mg/dL meet the criteria for diagnosis of diabetes. In the absence of unequivocal hyperglycemia, results should be confirmed by repeat testing. In a patient with classic symptoms of hyperglycemia or hyperglycemic crisis, random plasma glucose results greater than or equal to 200 mg/dL meet the criteria for diagnosis of diabetes.Reference: Standards of Medical Care in Diabetes 2016, [place] [employer]. Diabetes Care. 2016.39(Suppl 1). Performed By: #### 2 4321-2 ####[facility] LABORATORYCLIA [id number] [place] [id number] [place] Potassium [Moles/Vol] 3.1 mmol/L Low 3.7-5.1 [facility] Comment on above: Order Comment: Speci men Type: BLOOD SPECIMENOrdering Facility: [facility] Address: [address] [place] [address] Performed By: #### 2 4321-2 ####[facility] LABORATORYCLIA [id number] [address] [place] Sodium [Moles/Vol] 131 mmol/L Low 136-144 [facility] Comment on above: Order Comment: Speci men Type: BLOOD SPECIMENOrdering Facility: [facility] Address: [address] [place] [address] Performed By: #### 2 4321-2 ####[facility] LABORATORYCLIA [id number] [address] [place] Urea nitrogen [Mass/Vol] 13 mg/dL Normal 9-24 [facility] Comment on above: Order Comment: Speci men Type: BLOOD SPECIMENOrdering Facility: [facility] Address: [address] [place] [address] Performed By: #### 2 4321-2 ####[facility] LABORATORYCLIA [id number] [address] [place] CBC W Auto Differential pane l (Bld)on 08-14-2021 Basophils (Bld) [#/Vol] 10*3/uL Normal <0.11 [facility] Comment on above: Order Comment: Speci men Type: BLOOD SPECIMENOrdering Facility: [facility] Address: [address] [place] [address] Performed By: #### 5 7021-8 ####[facility] LABORATORYCLIA [id number] [address] [place] Basophils/100 WBC (Bld) 0.2 % Normal [facility] Comment on above: Order Comment: Speci men Type: BLOOD SPECIMENOrdering Facility: [facility] Address: [address] [place] [address] Performed By: #### 5 7021-8 ####[facility] LABORATORYCLIA [id number] [address] Differential cell count method Nom (Bld) Auto Normal [facility] Comment on above: Order Comment: Speci men Type: BLOOD SPECIMENOrdering Facility: [facility] Address: [address] [place] [address] Performed By: #### 5 7021-8 ####[facility] LABORATORYCLIA [id number] [address] OF [facility] Eosinophils (Bld) [#/Vol] 0.23 10*3/uL Normal <0.46 [facility] Comment on above: Order Comment: Speci men Type: BLOOD SPECIMENOrdering Facility: [facility] Address: [address] [place] [address] Performed By: #### 5 7021-8 ####[facility] LABORATORYCLIA [id number] [address] Eosinophils/100 WBC (Bld) 2.7 % Normal [facility] Comment on above: Order Comment: Speci men Type: BLOOD SPECIMENOrdering Facility: [facility] Address: [address] [place] [address] Performed By: #### 5 7021-8 ####[facility] LABORATORYCLIA [id number] [address] Erythrocyte distribution width (RBC) [Ratio] 16.6 % High 11.5-15.0 [facility] Comment on above: Order Comment: Speci men Type: BLOOD SPECIMENOrdering Facility: [facility] Address: [address] [place] [address] Performed By: #### 5 7021-8 ####[facility] LABORATORYCLIA [id number] [address] Hematocrit (Bld) [Volume fraction] 28.6 % Low 39.0-51.0 [facility] Comment on above: Order Comment: Speci men Type: BLOOD SPECIMENOrdering Facility: [facility] Address: [address] [place] [address] Performed By: #### 5 7021-8 ####[facility]ORATORYCLIA [id number] [address] [place] Hemoglobin (Bld) [Mass/Vol] 9.0 g/dL Low 13.0-17.0 [facility] Comment on above: Order Comment: Speci men Type: BLOOD SPECIMENOrdering Facility: [facility] Address: [address] [place] [address] Performed By: #### 5 7021-8 ####[facility] LABORATORYCLIA [id number] [address] IMMATURE GRAN % 0.2 % Normal [facility] Comment on above: Order Comment: Speci men Type: BLOOD SPECIMENOrdering Facility: [facility] Address: [address] [place] [address] Performed By: #### 5 7021-8 ####[facility] LABORATORYCLIA [id number] [address] IMMATURE GRAN ABS <0.03 Normal <0.10 [facility] Comment on above: Order Comment: Speci men Type: BLOOD SPECIMENOrdering Facility: [facility] Address: [address] [place] [address] Performed By: #### 5 7021-8 ####[facility] LABORATORYCLIA [id number] [address] [place] Lymphocytes (Bld) [#/Vol] 1.33 10*3/uL Normal 1.00-4.00 [facility] Comment on above: Order Comment: Speci men Type: BLOOD SPECIMENOrdering Facility: [facility] Address: [address] [place] [address] Performed By: #### 5 7021-8 ####[facility] LABORATORYCLIA [id number] [address] Lymphocytes/100 WBC (Bld) 15.6 % Normal [facility] Comment on above: Order Comment: Speci men Type: BLOOD SPECIMENOrdering Facility: [facility] Address: [address] [place] [address] Performed By: #### 5 7021-8 ####[facility] LABORATORYCLIA [id number] [address] MCH (RBC) [Entitic mass] 29.0 pg Normal 26.0-34.0 [facility] Comment on above: Order Comment: Speci men Type: BLOOD SPECIMENOrdering Facility: [facility] Address: [address] [place] [address] Performed By: #### 5 7021-8 ####[facility]ORATORYCLIA [id number] [address] OF [facility] MCHC (RBC) [Mass/Vol] 31.5 g/dL Normal 30.5-36.0 [facility] Comment on above: Order Comment: Speci men Type: BLOOD SPECIMENOrdering Facility: [facility] Address: [address] [place] [address] Performed By: #### 5 7021-8 ####[facility]ORATORYCLIA [id number] [address] MCV (RBC) [Entitic vol] 92.3 fL Normal 80.0-100.0 [facility] Comment on above: Order Comment: Speci men Type: BLOOD SPECIMENOrdering Facility: [facility] Address: [address] [place] [address] Performed By: #### 5 7021-8 ####[facility]ORATORYCLIA [id number] [address] Monocytes (Bld) [#/Vol] 0.44 10*3/uL Normal <0.87 [facility] Comment on above: Order Comment: Speci men Type: BLOOD SPECIMENOrdering Facility: [facility] Address: [address] [place] [address] Performed By: #### 5 7021-8 ####[facility] LABORATORYCLIA [id number] [address] Monocytes/100 WBC (Bld) 5.2 % Normal [facility] Comment on above: Order Comment: Speci men Type: BLOOD SPECIMENOrdering Facility: [facility] Address: [address] [place] [address] Performed By: #### 5 7021-8 ####[facility]ATORYCLIA [id number] [address] [place] Neutrophils (Bld) [#/Vol] 6.46 10*3/uL Normal 1.45-7.50 [facility] Comment on above: Order Comment: Speci men Type: BLOOD SPECIMENOrdering Facility: [facility] Address: [address] [place] [address] Performed By: #### 5 7021-8 ####[facility]ORATORYCLIA [id number] [address] [place] Neutrophils/100 WBC (Bld) 76.1 % Normal [facility] Comment on above: Order Comment: Speci men Type: BLOOD SPECIMENOrdering Facility: [facility] Address: [address] [place] [address] Performed By: #### 5 7021-8 ####[facility] LABORATORYCLIA [id number] [address] [place] Nucleated RBC (Bld) [#/Vol] 10*3/uL Normal <0.01 [facility] Comment on above: Order Comment: Speci men Type: BLOOD SPECIMENOrdering Facility: [facility] Address: [address] [place] [address] Performed By: #### 5 7021-8 ####[facility]ORATORYCLIA [id number] [address] [place] Nucleated RBC/100 WBC (Bld) [Ratio] 0.0 /100 WBC Normal [facility] Comment on above: Order Comment: Speci men Type: BLOOD SPECIMENOrdering Facility: [facility] Address: [address] [place] [address] Performed By: #### 5 7021-8 ####[facility]ATORYCLIA [id number] [address] [place] Platelet mean volume (Bld) [Entitic vol] 9.5 fL Normal 9.0-12.7 [facility] Comment on above: Order Comment: Speci men Type: BLOOD SPECIMENOrdering Facility: [facility] Address: [address] [place] [address] Performed By: #### 5 7021-8 ####[facility]ORATORYCLIA [id number] [place] [address] [place] Platelets (Bld) [#/Vol] 247 10*3/uL Normal 150-400 [facility] Comment on above: Order Comment: Speci men Type: BLOOD SPECIMENOrdering Facility: [facility] Address: [address] [place] [address] Performed By: #### 5 7021-8 ####[facility]ORATORYCLIA [id number] [place] [address] [place] RBC (Bld) [#/Vol] 3.10 10*6/uL Low 4.20-6.00 [facility] Comment on above: Order Comment: Speci men Type: BLOOD SPECIMENOrdering Facility: [facility] Address: [address] [place] [address] Performed By: #### 5 7021-8 ####[facility]ORATORYCLIA [id number] [address] [place] WBC (Bld) [#/Vol] 8.50 10*3/uL Normal 3.70-11.00 [facility] Comment on above: Order Comment: Speci men Type: BLOOD SPECIMENOrdering Facility: [facility] Address: [address] [place] [address] Performed By: #### 5 7021-8 ####[facility]ORATORYCLIA [id number] [address] [place] CONSULTon 08-14-2021 CONSULT Normal [facility] NURSING PROGon 08-14-2021 NURSING PROG Normal [facility] CBC W Auto Differential pane l (Bld)on 08-13-2021 Basophils (Bld) [#/Vol] 10*3/uL Normal <0.11 [facility] Comment on above: Order Comment: Speci men Type: BLOOD SPECIMENOrdering Facility: [facility] Address: [address] [place] [address] Performed By: #### 5 7021-8 ####[facility] LABORATORYCLIA [id number] [address] [place] Basophils/100 WBC (Bld) 0.2 % Normal [facility] Comment on above: Order Comment: Speci men Type: BLOOD SPECIMENOrdering Facility: [facility] Address: [address] [place] [address] Performed By: #### 5 7021-8 ####[facility]ORYCLIA [id number] [address] [place] Differential cell count method Nom (Bld) Auto Normal [facility] Comment on above: Order Comment: Speci men Type: BLOOD SPECIMENOrdering Facility: [facility] Address: [address] [place] [address] Performed By: #### 5 7021-8 ####[facility]ORYCLIA [id number] [address] [place] Eosinophils (Bld) [#/Vol] 0.31 10*3/uL Normal <0.46 [facility] Comment on above: Order Comment: Speci men Type: BLOOD SPECIMENOrdering Facility: [facility] Address: [address] [place] [address] Performed By: #### 5 7021-8 ####[facility] LABORATORYCLIA [id number] [address] [place] Eosinophils/100 WBC (Bld) 3.7 % Normal [facility] Comment on above: Order Comment: Speci men Type: BLOOD SPECIMENOrdering Facility: [facility] Address: [address] [place] [address] Performed By: #### 5 7021-8 ####[facility]ATORYCLIA [id number] [address] Erythrocyte distribution width (RBC) [Ratio] 16.6 % High 11.5-15.0 [facility] Comment on above: Order Comment: Speci men Type: BLOOD SPECIMENOrdering Facility: [facility] Address: [address] [place] [address] Performed By: #### 5 7021-8 ####[facility]ORATORYCLIA [id number] [address] Hematocrit (Bld) [Volume fraction] 27.5 % Low 39.0-51.0 [facility] Comment on above: Order Comment: Speci men Type: BLOOD SPECIMENOrdering Facility: [facility] Address: [address] [place] [address] Performed By: #### 5 7021-8 ####[facility] [id number] [address] Hemoglobin (Bld) [Mass/Vol] 8.4 g/dL Low 13.0-17.0 [facility] Comment on above: Order Comment: Speci men Type: BLOOD SPECIMENOrdering Facility: [facility] Address: [address] [place] [address] Performed By: #### 5 7021-8 ####[facility]ORATORYCLIA [id number] [address] IMMATURE GRAN % 0.5 % Normal [facility] Comment on above: Order Comment: Speci men Type: BLOOD SPECIMENOrdering Facility: [facility] Address: [address] [place] [address] Performed By: #### 5 7021-8 ####[facility]ORATORYCLIA [id number] [address] IMMATURE GRAN ABS 0.04 k/uL Normal <0.10 [facility] Comment on above: Order Comment: Speci men Type: BLOOD SPECIMENOrdering Facility: [facility] Address: [address] [place] [address] Performed By: #### 5 7021-8 ####[facility]ORATORYCLIA [id number] [address] STATES [place] [facility] Lymphocytes (Bld) [#/Vol] 1.55 10*3/uL Normal 1.00-4.00 [facility] Comment on above: Order Comment: Speci men Type: BLOOD SPECIMENOrdering Facility: [facility] Address: [address] [place] [address] Performed By: #### 5 7021-8 ####[facility]ORATORYCLIA [id number] [address] Lymphocytes/100 WBC (Bld) 18.7 % Normal [facility] Comment on above: Order Comment: Speci men Type: BLOOD SPECIMENOrdering Facility: [facility] Address: [address] [place] [address] Performed By: #### 5 7021-8 ####[facility]ORATORYCLIA [id number] [address] STATES [facility] MCH (RBC) [Entitic mass] 28.9 pg Normal 26.0-34.0 [facility] Comment on above: Order Comment: Speci men Type: BLOOD SPECIMENOrdering Facility: [facility] Address: [address] [place] [address] Performed By: #### 5 7021-8 ####[facility]ORATORYCLIA [id number] [address] [place] [facility] MCHC (RBC) [Mass/Vol] 30.5 g/dL Normal 30.5-36.0 [facility] Comment on above: Order Comment: Speci men Type: BLOOD SPECIMENOrdering Facility: [facility] Address: [address] [place] [address] Performed By: #### 5 7021-8 ####[facility]ORATORYCLIA [id number] [address] [place] MCV (RBC) [Entitic vol] 94.5 fL Normal 80.0-100.0 [facility] Comment on above: Order Comment: Speci men Type: BLOOD SPECIMENOrdering Facility: [facility] Address: [address] [place] [address] Performed By: #### 5 7021-8 ####[facility]ATORYCLIA [id number] [address] [place] Monocytes (Bld) [#/Vol] 0.47 10*3/uL Normal <0.87 [facility] Comment on above: Order Comment: Speci men Type: BLOOD SPECIMENOrdering Facility: [facility] Address: [address] [place] [address] Performed By: #### 5 7021-8 ####[facility]ORYCLIA [id number] [address] [place] Monocytes/100 WBC (Bld) 5.7 % Normal [facility] Comment on above: Order Comment: Speci men Type: BLOOD SPECIMENOrdering Facility: [facility] Address: [address] [place] [address] Performed By: #### 5 7021-8 ####[facility]ORATORYCLIA [id number] [address] [place] Neutrophils (Bld) [#/Vol] 5.92 10*3/uL Normal 1.45-7.50 [facility] Comment on above: Order Comment: Speci men Type: BLOOD SPECIMENOrdering Facility: [facility] Address: [address] [place] [address] Performed By: #### 5 7021-8 ####[facility]ORYCLIA [id number] [address] [place] Neutrophils/100 WBC (Bld) 71.2 % Normal [facility] Comment on above: Order Comment: Speci men Type: BLOOD SPECIMENOrdering Facility: [facility] Address: [address] [place] [address] Performed By: #### 5 7021-8 ####[facility]ORYCLIA [id number] [address] [place] [facility] Nucleated RBC (Bld) [#/Vol] 10*3/uL Normal <0.01 [facility] Comment on above: Order Comment: Speci men Type: BLOOD SPECIMENOrdering Facility: [facility] Address: [address] [place] [address] Performed By: #### 5 7021-8 ####[facility]ORATORYCLIA [id number] [address] [place] Nucleated RBC/100 WBC (Bld) [Ratio] 0.0 /100 WBC Normal [facility] Comment on above: Order Comment: Speci men Type: BLOOD SPECIMENOrdering Facility: [facility] Address: [address] [place] [address] Performed By: #### 5 7021-8 ####[facility]ORATORYCLIA [id number] [address] [place] Platelet mean volume (Bld) [Entitic vol] 9.9 fL Normal 9.0-12.7 [facility] Comment on above: Order Comment: Speci men Type: BLOOD SPECIMENOrdering Facility: [facility] Address: [address] [place] [address] Performed By: #### 5 7021-8 ####[facility]ORATORYCLIA [id number] [address] [place] Platelets (Bld) [#/Vol] 203 10*3/uL Normal 150-400 [facility] Comment on above: Order Comment: Speci men Type: BLOOD SPECIMENOrdering Facility: [facility] Address: [address] [place] [address] Performed By: #### 5 7021-8 ####[facility]ORATORYCLIA [id number] [address] [place] RBC (Bld) [#/Vol] 2.91 10*6/uL Low 4.20-6.00 [facility] Comment on above: Order Comment: Speci men Type: BLOOD SPECIMENOrdering Facility: [facility] Address: [address] [address] Performed By: #### 5 7021-8 ####[facility]ORATORYCLIA [id number] [address] [place] [facility] WBC (Bld) [#/Vol] 8.31 10*3/uL Normal 3.70-11.00 [facility] Comment on above: Order Comment: Speci men Type: BLOOD SPECIMENOrdering Facility: [facility] Address: [address] [place] [address] Performed By: #### 5 7021-8 ####[facility] LABORATORYCLIA [id number] [address] [place] [facility] aPTT PPPon 08-13-2021 aPTT Coag (PPP) [Time] 69.7 s High 23.0-32.4 [facility] Comment on above: Order Comment: Speci men Type: BLOOD SPECIMENOrdering Facility: [facility] Address: [address] [place] [address] Performed By: #### 1 4979-9 ####[facility] LABORATORYCLIA [id number] [address] aPTT Coag (PPP) [Time] 70.6 s High 23.0-32.4 [facility] Comment on above: Order Comment: Speci men Type: BLOOD SPECIMENOrdering Facility: [facility] Address: [address] [place] [address] Performed By: #### 1 4979-9 ####[facility] LABORATORYCLIA [id number] [address] [place] ALLIED HEALTHon 08-12-2021 ALLIED HEALTH Normal [facility] ALLIED HEALTH Normal [facility] Basic metabolic 2000 panelon 08-12-2021 Anion gap [Moles/Vol] 7 mmol/L Low 9-18 [facility] Comment on above: Order Comment: Speci men Type: BLOOD SPECIMENOrdering Facility: [facility] Address: [address] [place] [address] Performed By: #### 2 4321-2, , 2776-05 ####[facility] LABORATORYCLIA [id number] [place] [address] [place] Calcium [Mass/Vol] 8.8 mg/dL Normal 8.5-10.2 [facility] Comment on above: Order Comment: Speci men Type: BLOOD SPECIMENOrdering Facility: [facility] Address: [address] [place] [address] Performed By: #### 2 4321-2, , 2776-05 ####[facility]ORATORYCLIA [id number] [place] [address] [place] Chloride [Moles/Vol] 96 mmol/L Low 97-105 [facility] Comment on above: Order Comment: Speci men Type: BLOOD SPECIMENOrdering Facility: [facility] Address: [address] [place] [address] Performed By: #### 2 432-2, , 2776-05 ####[facility] LABORATORYCLIA [id number] [place] [address] [place] CO2 [Moles/Vol] 32 mmol/L High 22-30 [facility] Comment on above: Order Comment: Speci men Type: BLOOD SPECIMENOrdering Facility: [facility] Address: [address] [place] [address] Performed By: #### 2 4321-2, , 2776-05 ####[facility] LABORATORYCLIA [id number] [place] [address] [place] Creatinine [Mass/Vol] 0.52 mg/dL Low 0.73-1.22 [facility] Comment on above: Order Comment: Speci men Type: BLOOD SPECIMENOrdering Facility: [facility] Address: [address] [place] [address] Performed By: #### 2 4321-2, , 2776-05 ####[facility] LABORATORYCLIA [id number] [place] [address] [place] ESTIMATED GLOMERULAR FILTRATION RATE 109 mL/min/1.73m??? Normal >=60 [facility] Comment on above: Order Comment: Shira feldman Type: BLOOD SPECIMENOrdering Facility: [facility] Address: [address] [place], [place] [address] Result Comment: Luzmaria mated Glomerular Filtration Rate (eGFR) is calculated using the 2020 CKD-EPI creatinine equation. This equation utilizes serum creatinine, sex, and age as parameters. The creatinine assay has traceable calibration to isotope dilution-mass spectrometry. Refer to KDIGO guidelines for clinical interpretation. In patients with unstable renal function, e.g. those with acute kidney injury, the eGFR may not accurately reflect actual GFR. Performed By: #### 2 4321-2, 43762-6, 2776-05 ####[facility] [id number] [place] [address] [place] Glucose [Mass/Vol] 119 mg/dL High 74-99 [facility] Comment on above: Order Comment: Shira feldman Type: BLOOD SPECIMENOrdering Facility: [facility] Address: [address] [place], [place] [address] Result Comment: The [place] Diabetes Association (ADA) provides guidance for cutoff values for fasting glucose and random glucose. The ADA defines fasting as no caloric intake for at least 8 hours. Fasting plasma glucose results between 100 to 125 mg/dL indicate increased risk for diabetes (prediabetes).Fasting plasma glucose results greater than or equal to 126 mg/dL meet the criteria for diagnosis of diabetes. In the absence of unequivocal hyperglycemia, results should be confirmed by repeat testing. In a patient with classic symptoms of hyperglycemia or hyperglycemic crisis, random plasma glucose results greater than or equal to 200 mg/dL meet the criteria for diagnosis of diabetes.Reference: Standards of Medical Care in Diabetes 2016, [place] [employer]. Diabetes Care. 2016.39(Suppl 1). Performed By: #### 2 4321-2, 68408-5, 2776-05 ####[facility] LABORATORYCLIA [id number] [place] [address] [place] Potassium [Moles/Vol] 3.7 mmol/L Normal 3.7-5.1 [facility] Comment on above: Order Comment: Speci men Type: BLOOD SPECIMENOrdering Facility: [facility] Address: [address] [place] [address] Performed By: #### 2 4321-2, , 2776-05 ####[facility] LABORATORYCLIA [id number] [address] [place] Sodium [Moles/Vol] 135 mmol/L Low 136-144 [facility] Comment on above: Order Comment: Speci men Type: BLOOD SPECIMENOrdering Facility: [facility] Address: [address] [place] [address] Performed By: #### 2 4321-2, , 2776-05 ####[facility] LABORATORYCLIA [id number] [address] [place] Urea nitrogen [Mass/Vol] 20 mg/dL Normal 9-24 [facility] Comment on above: Order Comment: Speci men Type: BLOOD SPECIMENOrdering Facility: [facility] Address: [address] [place] [address] Performed By: #### 2 4321-2, , 2776-05 ####[facility]ORATORYCLIA [id number] [address] [place] CASE MANAGEMon 08-12-2021 CASE MANAGEM Normal [facility] CBC W Auto Differential pane l (Bld)on 08-12-2021 Basophils (Bld) [#/Vol] 0.04 10*3/uL Normal <0.11 [facility] Comment on above: Order Comment: Speci men Type: BLOOD SPECIMENOrdering Facility: [facility] Address: [address] [place] [address] Performed By: #### 5 7021-8 ####[facility] LABORATORYCLIA [id number] [address] [place] Basophils/100 WBC (Bld) 0.5 % Normal [facility] Comment on above: Order Comment: Speci men Type: BLOOD SPECIMENOrdering Facility: [facility] Address: [address] [place] [address] Performed By: #### 5 7021-8 ####[facility]ORATORYCLIA [id number] [address] Differential cell count method Nom (Bld) Auto Normal [facility] Comment on above: Order Comment: Speci men Type: BLOOD SPECIMENOrdering Facility: [facility] Address: [address] [place] [address] Performed By: #### 5 7021-8 ####[facility] LABORATORYCLIA [id number] [address] [place] Eosinophils (Bld) [#/Vol] 0.19 10*3/uL Normal <0.46 [facility] Comment on above: Order Comment: Speci men Type: BLOOD SPECIMENOrdering Facility: [facility] Address: [address] [place] [address] Performed By: #### 5 7021-8 ####[facility]ORATORYCLIA [id number] [address] Eosinophils/100 WBC (Bld) 2.3 % Normal [facility] Comment on above: Order Comment: Speci men Type: BLOOD SPECIMENOrdering Facility: [facility] Address: [address] [place] [address] Performed By: #### 5 7021-8 ####[facility] LABORATORYCLIA [id number] [address] Erythrocyte distribution width (RBC) [Ratio] 17.1 % High 11.5-15.0 [facility] Comment on above: Order Comment: Speci men Type: BLOOD SPECIMENOrdering Facility: [facility] Address: [address] [place] [address] Performed By: #### 5 7021-8 ####[facility] LABORATORYCLIA [id number] [address] [place] Hematocrit (Bld) [Volume fraction] 25.3 % Low 39.0-51.0 [facility] Comment on above: Order Comment: Speci men Type: BLOOD SPECIMENOrdering Facility: [facility] Address: [address] [place] [address] Performed By: #### 5 7021-8 ####[facility]ORATORYCLIA [id number] [address] STATES OF [facility] Hemoglobin (Bld) [Mass/Vol] 7.9 g/dL Low 13.0-17.0 [facility] Comment on above: Order Comment: Speci men Type: BLOOD SPECIMENOrdering Facility: [facility] Address: [address] [place] [address] Performed By: #### 5 7021-8 ####[facility]ORATORYCLIA [id number] [address] IMMATURE GRAN % 0.5 % Normal [facility] Comment on above: Order Comment: Speci men Type: BLOOD SPECIMENOrdering Facility: [facility] Address: [address] [place] [address] Performed By: #### 5 7021-8 ####[facility] LABORATORYCLIA [id number] [address] IMMATURE GRAN ABS 0.04 k/uL Normal <0.10 [facility] Comment on above: Order Comment: Speci men Type: BLOOD SPECIMENOrdering Facility: [facility] Address: [address] [place] [address] Performed By: #### 5 7021-8 ####[facility] LABORATORYCLIA [id number] [address] [place] Lymphocytes (Bld) [#/Vol] 1.69 10*3/uL Normal 1.00-4.00 [facility] Comment on above: Order Comment: Speci men Type: BLOOD SPECIMENOrdering Facility: [facility] Address: [address] [place] [address] Performed By: #### 5 7021-8 ####[facility]ORATORYCLIA [id number] [address] Lymphocytes/100 WBC (Bld) 20.1 % Normal [facility] Comment on above: Order Comment: Speci men Type: BLOOD SPECIMENOrdering Facility: [facility] Address: [address] [place] [address] Performed By: #### 5 7021-8 ####[facility] LABORATORYCLIA [id number] [address] STATES [facility] MCH (RBC) [Entitic mass] 28.5 pg Normal 26.0-34.0 [facility] Comment on above: Order Comment: Speci men Type: BLOOD SPECIMENOrdering Facility: [facility] Address: [address] [place] [address] Performed By: #### 5 7021-8 ####[facility]ORATORYCLIA [id number] [address] MCHC (RBC) [Mass/Vol] 31.2 g/dL Normal 30.5-36.0 [facility] Comment on above: Order Comment: Speci men Type: BLOOD SPECIMENOrdering Facility: [facility] Address: [address] [place] [address] Performed By: #### 5 7021-8 ####[facility]ORATORYCLIA [id number] [address] MCV (RBC) [Entitic vol] 91.3 fL Normal 80.0-100.0 [facility] Comment on above: Order Comment: Speci men Type: BLOOD SPECIMENOrdering Facility: [facility] Address: [address] [place] [address] Performed By: #### 5 7021-8 ####[facility] LABORATORYCLIA [id number] [address] Monocytes (Bld) [#/Vol] 0.53 10*3/uL Normal <0.87 [facility] Comment on above: Order Comment: Speci men Type: BLOOD SPECIMENOrdering Facility: [facility] Address: [address] [place] [address] Performed By: #### 5 7021-8 ####[facility]ORATORYCLIA [id number] [address] [place] Monocytes/100 WBC (Bld) 6.3 % Normal [facility] Comment on above: Order Comment: Speci men Type: BLOOD SPECIMENOrdering Facility: [facility] Address: [address] [place] [address] Performed By: #### 5 7021-8 ####[facility]ORATORYCLIA [id number] [address] [place] Neutrophils (Bld) [#/Vol] 5.90 10*3/uL Normal 1.45-7.50 [facility] Comment on above: Order Comment: Speci men Type: BLOOD SPECIMENOrdering Facility: [facility] Address: [address] [place] [address] Performed By: #### 5 7021-8 ####[facility]ORATORYCLIA [id number] [address] Neutrophils/100 WBC (Bld) 70.3 % Normal [facility] Comment on above: Order Comment: Speci men Type: BLOOD SPECIMENOrdering Facility: [facility] Address: [address] [place] [address] Performed By: #### 5 7021-8 ####[facility]ORATORYCLIA [id number] [address] [place] Nucleated RBC (Bld) [#/Vol] 10*3/uL Normal <0.01 [facility] Comment on above: Order Comment: Speci men Type: BLOOD SPECIMENOrdering Facility: [facility] Address: [address] [place] [address] Performed By: #### 5 7021-8 ####[facility]ORATORYCLIA [id number] [address] [place] Nucleated RBC/100 WBC (Bld) [Ratio] 0.0 /100 WBC Normal [facility] Comment on above: Order Comment: Speci men Type: BLOOD SPECIMENOrdering Facility: [facility] Address: [address] [place], [place] [address] Performed By: #### 5 7021-8 ####[facility]ORATORYCLIA [id number] [address] Platelet mean volume (Bld) [Entitic vol] 9.8 fL Normal 9.0-12.7 [facility] Comment on above: Order Comment: Speci men Type: BLOOD SPECIMENOrdering Facility: [facility] Address: [address] [place], [place] [address] Performed By: #### 5 7021-8 ####[facility]ORATORYCLIA [id number] [address] [place] Platelets (Bld) [#/Vol] 164 10*3/uL Normal 150-400 [facility] Comment on above: Order Comment: Speci men Type: BLOOD SPECIMENOrdering Facility: [facility] Address: [address] [place] [address] Performed By: #### 5 7021-8 ####[facility]ORATORYCLIA [id number] [place] [address] [place] RBC (Bld) [#/Vol] 2.77 10*6/uL Low 4.20-6.00 [facility] Comment on above: Order Comment: Speci men Type: BLOOD SPECIMENOrdering Facility: [facility] Address: [address] [place], [place] [address] Performed By: #### 5 7021-8 ####[facility]ORATORYCLIA [id number] [address] [place] WBC (Bld) [#/Vol] 8.39 10*3/uL Normal 3.70-11.00 [facility] Comment on above: Order Comment: Speci men Type: BLOOD SPECIMENOrdering Facility: [facility] Address: [address] [place] [address] Performed By: #### 5 7021-8 ####[facility]ORATORYCLIA [id number] [address] OF [facility] CT BRAIN WO IVCONon 08-13-19 CT BRAIN WO IVCON Normal [facility] CT BRAIN WO IVCON Normal [facility] Magnesium SerPl-mCncon 08-12 Magnesium [Mass/Vol] 2.0 mg/dL Normal 1.7-2.3 [facility] Comment on above: Order Comment: Speci men Type: BLOOD SPECIMENOrdering Facility: [facility] Address: [address] [place] [address] Performed By: #### 2 4321-2, 71540-7, 2777-1 ####[facility]ORATORYCLIA [id number] [address] Phosphate SerPl-mCncon 08-12 Phosphate [Mass/Vol] 2.9 mg/dL Normal 2.7-4.8 [facility] Comment on above: Order Comment: Speci men Type: BLOOD SPECIMENOrdering Facility: [facility] Address: [address] [place] [address] Performed By: #### 2 4321-2, 13192-6, 2777-1 ####[facility]ORATORYCLIA [id number] [address] [place] [facility] THERAPY NTon 08-12-2021 THERAPY NT Normal [facility] THERAPY NT Normal [facility] aPTT PPPon 08-12-2021 aPTT Coag (PPP) [Time] 94.2 s High 23.0-32.4 [facility] Comment on above: Order Comment: Speci men Type: BLOOD SPECIMENOrdering Facility: [facility] Address: [address] [place] [address] Performed By: #### 1 4979-9 ####[facility]ORATORYCLIA [id number] [address] [place] aPTT Coag (PPP) [Time] 84.4 s High 23.0-32.4 [facility] Comment on above: Order Comment: Speci men Type: BLOOD SPECIMENOrdering Facility: [facility] Address: [address] [address] Performed By: #### 1 4979-9 ####[facility]ORATORYCLIA [id number] [address] aPTT Coag (PPP) [Time] 71.3 s High 23.0-32.4 [facility] Comment on above: Order Comment: Speci men Type: BLOOD SPECIMENOrdering Facility: [facility] Address: [address] [place] [address] Performed By: #### 1 4979-9 ####[facility]ORATORYCLIA [id number] [address] ALLIED HEALTHon 08-11-2021 ALLIED HEALTH Normal [facility] CBC W Auto Differential pane l (Bld)on 08-11-2021 Basophils (Bld) [#/Vol] 10*3/uL Normal <0.11 [facility] Comment on above: Order Comment: Speci men Type: BLOOD SPECIMENOrdering Facility: [facility] Address: [address] [place] [address] Performed By: #### 5 7021-8 ####[facility]ORATORYCLIA [id number] [address] Basophils/100 WBC (Bld) 0.2 % Normal [facility] Comment on above: Order Comment: Speci men Type: BLOOD SPECIMENOrdering Facility: [facility] Address: [address] [place] [address] Performed By: #### 5 7021-8 ####[facility]ORATORYCLIA [id number] [address] Differential cell count method Nom (Bld) Auto Normal [facility] Comment on above: Order Comment: Speci men Type: BLOOD SPECIMENOrdering Facility: [facility] Address: [address] [place] [address] Performed By: #### 5 7021-8 ####[facility]ORATORYCLIA [id number] [address] [place] Eosinophils (Bld) [#/Vol] 0.16 10*3/uL Normal <0.46 [facility] Comment on above: Order Comment: Speci men Type: BLOOD SPECIMENOrdering Facility: [facility] Address: [address] [place] [address] Performed By: #### 5 7021-8 ####[facility]ORATORYCLIA [id number] [address] [place] Eosinophils/100 WBC (Bld) 1.8 % Normal [facility] Comment on above: Order Comment: Speci men Type: BLOOD SPECIMENOrdering Facility: [facility] Address: [address] [place] [address] Performed By: #### 5 7021-8 ####[facility]ORATORYCLIA [id number] [address] Erythrocyte distribution width (RBC) [Ratio] 17.3 % High 11.5-15.0 [facility] Comment on above: Order Comment: Speci men Type: BLOOD SPECIMENOrdering Facility: [facility] Address: [address] [place] [address] Performed By: #### 5 7021-8 ####[facility]ORATORYCLIA [id number] [address] [place] Hematocrit (Bld) [Volume fraction] 26.6 % Low 39.0-51.0 [facility] Comment on above: Order Comment: Speci men Type: BLOOD SPECIMENOrdering Facility: [facility] Address: [address] [place] [address] Performed By: #### 5 7021-8 ####[facility]ORATORYCLIA [id number] [address] [place] Hemoglobin (Bld) [Mass/Vol] 8.2 g/dL Low 13.0-17.0 [facility] Comment on above: Order Comment: Speci men Type: BLOOD SPECIMENOrdering Facility: [facility] Address: [address] [place] [address] Performed By: #### 5 7021-8 ####[facility]ORATORYCLIA [id number] [address] IMMATURE GRAN % 0.6 % Normal [facility] Comment on above: Order Comment: Speci men Type: BLOOD SPECIMENOrdering Facility: [facility] Address: [address] [place] [address] Performed By: #### 5 7021-8 ####[facility]ORATORYCLIA [id number] [address] IMMATURE GRAN ABS 0.05 k/uL Normal <0.10 [facility] Comment on above: Order Comment: Speci men Type: BLOOD SPECIMENOrdering Facility: [facility] Address: [address] [place] [address] Performed By: #### 5 7021-8 ####[facility] LABORATORYCLIA [id number] [address] STATES [facility] Lymphocytes (Bld) [#/Vol] 1.40 10*3/uL Normal 1.00-4.00 [facility] Comment on above: Order Comment: Speci men Type: BLOOD SPECIMENOrdering Facility: [facility] Address: [address] [place] [address] Performed By: #### 5 7021-8 ####[facility]ORATORYCLIA [id number] [address] Lymphocytes/100 WBC (Bld) 15.8 % Normal [facility] Comment on above: Order Comment: Speci men Type: BLOOD SPECIMENOrdering Facility: [facility] Address: [address] [place] [address] Performed By: #### 5 7021-8 ####[facility] LABORATORYCLIA [id number] [address] MCH (RBC) [Entitic mass] 28.4 pg Normal 26.0-34.0 [facility] Comment on above: Order Comment: Speci men Type: BLOOD SPECIMENOrdering Facility: [facility] Address: [address] [place] [address] Performed By: #### 5 7021-8 ####[facility]ORATORYCLIA [id number] [address] MCHC (RBC) [Mass/Vol] 30.8 g/dL Normal 30.5-36.0 [facility] Comment on above: Order Comment: Speci men Type: BLOOD SPECIMENOrdering Facility: [facility] Address: [address] [place] [address] Performed By: #### 5 7021-8 ####[facility]ORATORYCLIA [id number] [address] MCV (RBC) [Entitic vol] 92.0 fL Normal 80.0-100.0 [facility] Comment on above: Order Comment: Speci men Type: BLOOD SPECIMENOrdering Facility: [facility] Address: [address] [place] [address] Performed By: #### 5 7021-8 ####[facility] LABORATORYCLIA [id number] [address] OF [facility] Monocytes (Bld) [#/Vol] 0.61 10*3/uL Normal <0.87 [facility] Comment on above: Order Comment: Speci men Type: BLOOD SPECIMENOrdering Facility: [facility] Address: [address] [place] [address] Performed By: #### 5 7021-8 ####[facility]ORATORYCLIA [id number] [address] Monocytes/100 WBC (Bld) 6.9 % Normal [facility] Comment on above: Order Comment: Speci men Type: BLOOD SPECIMENOrdering Facility: [facility] Address: [address] [place] [address] Performed By: #### 5 7021-8 ####[facility] LABORATORYCLIA [id number] [address] [place] Neutrophils (Bld) [#/Vol] 6.62 10*3/uL Normal 1.45-7.50 [facility] Comment on above: Order Comment: Speci men Type: BLOOD SPECIMENOrdering Facility: [facility] Address: [address] [place] [address] Performed By: #### 5 7021-8 ####[facility]ORATORYCLIA [id number] [address] Neutrophils/100 WBC (Bld) 74.7 % Normal [facility] Comment on above: Order Comment: Speci men Type: BLOOD SPECIMENOrdering Facility: [facility] Address: [address] [place] [address] Performed By: #### 5 7021-8 ####[facility] LABORATORYCLIA [id number] [address] [place] Nucleated RBC (Bld) [#/Vol] 10*3/uL Normal <0.01 [facility] Comment on above: Order Comment: Speci men Type: BLOOD SPECIMENOrdering Facility: [facility] Address: [address] [place] [address] Performed By: #### 5 7021-8 ####[facility]ORATORYCLIA [id number] [address] Nucleated RBC/100 WBC (Bld) [Ratio] 0.0 /100 WBC Normal [facility] Comment on above: Order Comment: Speci men Type: BLOOD SPECIMENOrdering Facility: [facility] Address: [address] [place] [address] Performed By: #### 5 7021-8 ####[facility]ORATORYCLIA [id number] [address] Platelet mean volume (Bld) [Entitic vol] 9.8 fL Normal 9.0-12.7 [facility] Comment on above: Order Comment: Speci men Type: BLOOD SPECIMENOrdering Facility: [facility] Address: [address] [place] [address] Performed By: #### 5 7021-8 ####[facility]ORATORYCLIA [id number] [address] [place] Platelets (Bld) [#/Vol] 157 10*3/uL Normal 150-400 [facility] Comment on above: Order Comment: Speci men Type: BLOOD SPECIMENOrdering Facility: [facility] Address: [address] [place] [address] Performed By: #### 5 7021-8 ####[facility]ORATORYCLIA [id number] [address] RBC (Bld) [#/Vol] 2.89 10*6/uL Low 4.20-6.00 [facility] Comment on above: Order Comment: Speci men Type: BLOOD SPECIMENOrdering Facility: [facility] Address: [address] [place] [address] Performed By: #### 5 7021-8 ####[facility]ORATORYCLIA [id number] [address] WBC (Bld) [#/Vol] 8.86 10*3/uL Normal 3.70-11.00 [facility] Comment on above: Order Comment: Speci men Type: BLOOD SPECIMENOrdering Facility: [facility] Address: [address] [place] [address] Performed By: #### 5 7021-8 ####[facility] LABORATORYCLIA [id number] [address] CBC panel Auto (Bld)on 08-11 Erythrocyte distribution width (RBC) [Ratio] 17.2 % High 11.5-15.0 [facility] Comment on above: Order Comment: Speci men Type: BLOOD SPECIMENOrdering Facility: [facility] Address: [address] [place] [address] Performed By: #### 5 8410-2 ####[facility] LABORATORYCLIA [id number] [address] Hematocrit (Bld) [Volume fraction] 27.0 % Low 39.0-51.0 [facility] Comment on above: Order Comment: Speci men Type: BLOOD SPECIMENOrdering Facility: [facility] Address: [address] [place] [address] Performed By: #### 5 8410-2 ####[facility] LABORATORYCLIA [id number] [address] [place] Hemoglobin (Bld) [Mass/Vol] 8.3 g/dL Low 13.0-17.0 [facility] Comment on above: Order Comment: Speci men Type: BLOOD SPECIMENOrdering Facility: [facility] Address: [address] [place] [address] Performed By: #### 5 8410-2 ####[facility] LABORATORYCLIA [id number] [address] [place] MCH (RBC) [Entitic mass] 28.7 pg Normal 26.0-34.0 [facility] Comment on above: Order Comment: Speci men Type: BLOOD SPECIMENOrdering Facility: [facility] Address: [address] [place] [address] Performed By: #### 5 8410-2 ####[facility] LABORATORYCLIA [id number] [address] MCHC (RBC) [Mass/Vol] 30.7 g/dL Normal 30.5-36.0 [facility] Comment on above: Order Comment: Speci men Type: BLOOD SPECIMENOrdering Facility: [facility] Address: [address] [place] [address] Performed By: #### 5 8410-2 ####[facility] LABORATORYCLIA [id number] [address] MCV (RBC) [Entitic vol] 93.4 fL Normal 80.0-100.0 [facility] Comment on above: Order Comment: Speci men Type: BLOOD SPECIMENOrdering Facility: [facility] Address: [address] [place] [address] Performed By: #### 5 8410-2 ####[facility] LABORATORYCLIA [id number] [address] [place] Nucleated RBC (Bld) [#/Vol] 10*3/uL Normal <0.01 [facility] Comment on above: Order Comment: Speci men Type: BLOOD SPECIMENOrdering Facility: [facility] Address: [address] [place] [address] Performed By: #### 5 8410-2 ####[facility] LABORATORYCLIA [id number] [address] [place] Platelet mean volume (Bld) [Entitic vol] 9.8 fL Normal 9.0-12.7 [facility] Comment on above: Order Comment: Speci men Type: BLOOD SPECIMENOrdering Facility: [facility] Address: [address] [place] [address] Performed By: #### 5 8410-2 ####[facility]ORATORYCLIA [id number] [address] [place] Platelets (Bld) [#/Vol] 169 10*3/uL Normal 150-400 [facility] Comment on above: Order Comment: Speci men Type: BLOOD SPECIMENOrdering Facility: [facility] Address: [address] [place] [address] Performed By: #### 5 8410-2 ####[facility]ORATORYCLIA [id number] [address] [place] RBC (Bld) [#/Vol] 2.89 10*6/uL Low 4.20-6.00 [facility] Comment on above: Order Comment: Speci men Type: BLOOD SPECIMENOrdering Facility: [facility] Address: [address] [place] [address] Performed By: #### 5 8410-2 ####[facility]ORATORYCLIA [id number] [address] [place] WBC (Bld) [#/Vol] 9.03 10*3/uL Normal 3.70-11.00 [facility] Comment on above: Order Comment: Shira feldman Type: BLOOD SPECIMENOrdering Facility: [facility] Address: [address] [place] [address] Performed By: #### 5 8410-2 ####[facility] LABORATORYCLIA [id number] [address] [place] CT BRAIN WO IVCONon 08-12-19 CT BRAIN WO IVCON Normal [facility] PT panel Coag (PPP)on 2021 INR Coag (PPP) [Relative time] 1.0 {INR} Normal 0.9-1.3 [facility] Comment on above: Order Comment: Shira feldman Type: BLOOD SPECIMENOrdering Facility: [facility] Address: [address] [place] [address] Result Comment: Yris min K Antagonist (VKA) Therapeutic Range: INR 2 to 3 (Target INR of 2.5)Note: For patients treated with VKA drugs, such as warfarin, the [place] [employer] 2012 Guideline recommends a therapeutic INR range of 2 to 3 (target INR of 2.5). This recommendation includes high-risk patients with antiphospholipid syndrome with previous arterial or venous thromboembolism, current-generation mechanical or bioprosthetic aortic heart valve replacement.Note: Patients with mechanical aortic valve replacement and additional risk factors for thromboembolic events (atrial fibrillation, previous thromboembolism, LV dysfunction, hypercoagulable conditions) or an older generation mechanical AVR (i.e., ball in-Cage) or any mechanical MVR should have a INR therapeutic range of 2.5 to 3.5 (target INR of 3).Jeffy GUZMAN, et al. Chest 2012, 141:7S-47SNishmariangel RA, et al. [facility] 2017, 70: 252-289 Performed By: #### 1 4979-9, 98674-9 ####[facility]ORATORYCLIA [id number] [address] [place] PT Coag (PPP) [Time] 11.4 s Normal 9.7-13.0 [facility] Comment on above: Order Comment: Shira feldman Type: BLOOD SPECIMENOrdering Facility: [facility] Address: [address] [place] [address] Performed By: #### 1 4979-9, 86793-3 ####[facility] LABORATORYCLIA [id number] [address] [place] THERAPY NTon 08-11-2021 THERAPY NT Normal [facility] US DVT LOWER BILon 2 US DVT LOWER RAINER Normal [facility] US DVT UPPER BILon 2 US DVT UPPER RAINER Normal [facility] aPTT PPPon 08-11-2021 aPTT Coag (PPP) [Time] 26.9 s Normal 23.0-32.4 [facility] Comment on above: Order Comment: Speci men Type: BLOOD SPECIMENOrdering Facility: [facility] Address: [address] [place] [address] Performed By: #### 1 4979-9, 93594-8 ####[facility] LABORATORYCLIA [id number] [place] [address] [place] Basic metabolic 2000 panelon 08-10-2021 Anion gap [Moles/Vol] 11 mmol/L Normal 9-18 [facility] Comment on above: Order Comment: Speci men Type: BLOOD SPECIMENOrdering Facility: [facility] Address: [address] [place] [address] Performed By: #### 2 4321-2 ####[facility] LABORATORYCLIA [id number] [place] [address] [place] Calcium [Mass/Vol] 8.7 mg/dL Normal 8.5-10.2 [facility] Comment on above: Order Comment: Speci men Type: BLOOD SPECIMENOrdering Facility: [facility] Address: [address] [place] [address] Performed By: #### 2 4321-2 ####[facility]ORATORYCLIA [id number] [place] [address] [place] Chloride [Moles/Vol] 98 mmol/L Normal 97-105 [facility] Comment on above: Order Comment: Speci men Type: BLOOD SPECIMENOrdering Facility: [facility] Address: [address] [place] [address] Performed By: #### 2 4321-2 ####[facility] LABORATORYCLIA [id number] [place] [address] [place] CO2 [Moles/Vol] 28 mmol/L Normal 22-30 [facility] Comment on above: Order Comment: Speci men Type: BLOOD SPECIMENOrdering Facility: [facility] Address: [address] [place] [address] Performed By: #### 2 4321-2 ####[facility]ORATORYCLIA [id number] [address] [place] Creatinine [Mass/Vol] 0.59 mg/dL Low 0.73-1.22 [facility] Comment on above: Order Comment: Speci men Type: BLOOD SPECIMENOrdering Facility: [facility] Address: [address] [place] [address] Performed By: #### 2 4321-2 ####[facility]ORATORYCLIA [id number] [address] ESTIMATED GLOMERULAR FILTRATION RATE 105 mL/min/1.73m??? Normal >=60 [facility] Comment on above: Order Comment: Speci men Type: BLOOD SPECIMENOrdering Facility: [facility] Address: [address] [place] [address] Result Comment: Luzmaria mated Glomerular Filtration Rate (eGFR) is calculated using the 2020 CKD-EPI creatinine equation. This equation utilizes serum creatinine, sex, and age as parameters. The creatinine assay has traceable calibration to isotope dilution-mass spectrometry. Refer to KDIGO guidelines for clinical interpretation. In patients with unstable renal function, e.g. those with acute kidney injury, the eGFR may not accurately reflect actual GFR. Performed By: #### 2 4321-2 ####[facility] LABORATORYCLIA [id number] [address] [place] Glucose [Mass/Vol] 118 mg/dL High 74-99 [facility] Comment on above: Order Comment: Speci men Type: BLOOD SPECIMENOrdering Facility: [facility] Address: [address] [place] [address] Result Comment: The [place] [employer] (ADA) provides guidance for cutoff values for fasting glucose and random glucose. The ADA defines fasting as no caloric intake for at least 8 hours. Fasting plasma glucose results between 100 to 125 mg/dL indicate increased risk for diabetes (prediabetes).Fasting plasma glucose results greater than or equal to 126 mg/dL meet the criteria for diagnosis of diabetes. In the absence of unequivocal hyperglycemia, results should be confirmed by repeat testing. In a patient with classic symptoms of hyperglycemia or hyperglycemic crisis, random plasma glucose results greater than or equal to 200 mg/dL meet the criteria for diagnosis of diabetes.Reference: Standards of Medical Care in Diabetes 2016, [place] [employer]. Diabetes Care. 2016.39(Suppl 1). Performed By: #### 2 4321-2 ####[facility] LABORATORYCLIA [id number] [place] [address] [place] Potassium [Moles/Vol] 3.7 mmol/L Normal 3.7-5.1 [facility] Comment on above: Order Comment: Shira [facility] Type: BLOOD SPECIMENOrdering Facility: [facility] Address: [address] [address] Performed By: #### 2 4321-2 ####[facility] LABORATORYCLIA [id number] [place] [address] [place] Sodium [Moles/Vol] 137 mmol/L Normal 136-144 [facility] Comment on above: Order Comment: Johni men Type: BLOOD SPECIMENOrdering Facility: [facility] Address: [address] [address] Performed By: #### 2 4321-2 ####[facility] LABORATORYCLIA [id number] [place] [address] [place] Urea nitrogen [Mass/Vol] 23 mg/dL Normal 9-24 [facility] Comment on above: Order Comment: Johni [facility] Type: BLOOD SPECIMENOrdering Facility: [facility] Address: [address] [address] Performed By: #### 2 4321-2 ####[facility] LABORATORYCLIA [id number] [place] [address] [place] Anion gap [Moles/Vol] 17 mmol/L Normal 9-18 [facility] Comment on above: Order Comment: Speci men Type: BLOOD SPECIMENOrdering Facility: [facility] Address: [address] [place] [address] Performed By: #### 1 9123-9, 2777, 64996-0 ####[facility] LABORATORYCLIA [id number] [place] [address] [place] Calcium [Mass/Vol] 7.7 mg/dL Low 8.5-10.2 [facility] Comment on above: Order Comment: Speci men Type: BLOOD SPECIMENOrdering Facility: [facility] Address: [address] [place] [address] Performed By: #### 1 9123-9, 2777, 63794-3 ####[facility]CL[facility] [id number] [place] [address] [place] Chloride [Moles/Vol] 86 mmol/L Low 97-105 [facility] Comment on above: Order Comment: Speci men Type: BLOOD SPECIMENOrdering Facility: [facility] Address: [address] [place] [address] Performed By: #### 1 9123-9, 27711-04, 14084-0 ####[facility] LABORATORYCLIA [id number] [place] [address] [place] CO2 [Moles/Vol] 24 mmol/L Normal 22-30 [facility] Comment on above: Order Comment: Speci men Type: BLOOD SPECIMENOrdering Facility: [facility] Address: [address] [place] [address] Performed By: #### 1 9123-9, 2777, 64864-8 ####[facility] LABORATORYCLIA [id number] [place] [address] [place] Creatinine [Mass/Vol] 0.53 mg/dL Low 0.73-1.22 [facility] Comment on above: Order Comment: Shira feldman Type: BLOOD SPECIMENOrdering Facility: [facility] Address: [address] [id number] Performed By: #### 1 9123-9, 2777-1, 74509-0 ####[facility] LABORATORYCLIA [id number] [place] [address] [place] ESTIMATED GLOMERULAR FILTRATION RATE 108 mL/min/1.73m??? Normal >=60 [facility] Comment on above: Order Comment: Shira feldman Type: BLOOD SPECIMENOrdering Facility: [facility] Address: [address] [place] [address] Result Comment: Luzmaria mated Glomerular Filtration Rate (eGFR) is calculated using the 2020 CKD-EPI creatinine equation. This equation utilizes serum creatinine, sex, and age as parameters. The creatinine assay has traceable calibration to isotope dilution-mass spectrometry. Refer to KDIGO guidelines for clinical interpretation. In patients with unstable renal function, e.g. those with acute kidney injury, the eGFR may not accurately reflect actual GFR. Performed By: #### 1 9123-9, 2777-1, 28032-6 ####[facility]ORATORYCLIA [id number] [place] [address] [place] Glucose [Mass/Vol] 455 mg/dL High 74-99 [facility] Comment on above: Order Comment: Shira feldman Type: BLOOD SPECIMENOrdering Facility: [facility] Address: [address] [address] Result Comment: The [place] Diabetes Association (ADA) provides guidance for cutoff values for fasting glucose and random glucose. The ADA defines fasting as no caloric intake for at least 8 hours. Fasting plasma glucose results between 100 to 125 mg/dL indicate increased risk for diabetes (prediabetes).Fasting plasma glucose results greater than or equal to 126 mg/dL meet the criteria for diagnosis of diabetes. In the absence of unequivocal hyperglycemia, results should be confirmed by repeat testing. In a patient with classic symptoms of hyperglycemia or hyperglycemic crisis, random plasma glucose results greater than or equal to 200 mg/dL meet the criteria for diagnosis of diabetes.Reference: Standards of Medical Care in Diabetes 2016, [place] [employer]. Diabetes Care. 2016.39(Suppl 1). Performed By: #### 1 9123-9, 2777-1, 79013-8 ####[facility] LABORATORYCLIA [id number] [place] [address] [place] Potassium [Moles/Vol] 3.4 mmol/L Low 3.7-5.1 [facility] Comment on above: Order Comment: Speci men Type: BLOOD SPECIMENOrdering Facility: [facility] Address: [address] [place] [address] Performed By: #### 1 9123-9, 2777-, 10394-5 ####[facility]ORATORYCLIA [id number] [address] [place] Sodium [Moles/Vol] 127 mmol/L Low 136-144 [facility] Comment on above: Order Comment: Speci men Type: BLOOD SPECIMENOrdering Facility: [facility] Address: [address] [place] [address] Performed By: #### 1 9123-9, 2777-, 79549-2 ####[facility] LABORATORYCLIA [id number] [address] [place] [facility] Urea nitrogen [Mass/Vol] 21 mg/dL Normal 9-24 [facility] Comment on above: Order Comment: Speci men Type: BLOOD SPECIMENOrdering Facility: [facility] Address: [address] [place] [address] Performed By: #### 1 9123-9, 2777-, 51185-5 ####[facility] LABORATORYCLIA [id number] [address] [place] CASE MANAGEMon 08-10-2021 CASE MANAGEM Normal [facility] CBC W Auto Differential pane l (Bld)on 08-10-2021 Basophils (Bld) [#/Vol] 0.04 10*3/uL Normal <0.11 [facility] Comment on above: Order Comment: Speci men Type: BLOOD SPECIMENOrdering Facility: [facility] Address: [address] [address] Performed By: #### 5 7021-8 ####[facility]ORATORYCLIA [id number] [address] Basophils/100 WBC (Bld) 0.4 % Normal [facility] Comment on above: Order Comment: Speci men Type: BLOOD SPECIMENOrdering Facility: [facility] Address: [address] [place] [address] Performed By: #### 5 7021-8 ####[facility]ORATORYCLIA [id number] [address] Differential cell count method Nom (Bld) Auto Normal [facility] Comment on above: Order Comment: Speci men Type: BLOOD SPECIMENOrdering Facility: [facility] Address: [address] [place] [address] Performed By: #### 5 7021-8 ####[facility]ORATORYCLIA [id number] [address] [place] Eosinophils (Bld) [#/Vol] 0.11 10*3/uL Normal <0.46 [facility] Comment on above: Order Comment: Speci men Type: BLOOD SPECIMENOrdering Facility: [facility] Address: [address] [place] [address] Performed By: #### 5 7021-8 ####[facility]ORATORYCLIA [id number] [address] Eosinophils/100 WBC (Bld) 1.1 % Normal [facility] Comment on above: Order Comment: Speci men Type: BLOOD SPECIMENOrdering Facility: [facility] Address: [address] [place] [address] Performed By: #### 5 7021-8 ####[facility]ORATORYCLIA [id number] [address] [place] Erythrocyte distribution width (RBC) [Ratio] 17.2 % High 11.5-15.0 [facility] Comment on above: Order Comment: Speci men Type: BLOOD SPECIMENOrdering Facility: [facility] Address: [address] [place] [address] Performed By: #### 5 7021-8 ####[facility]ORATORYCLIA [id number] [address] Hematocrit (Bld) [Volume fraction] 25.5 % Low 39.0-51.0 [facility] Comment on above: Order Comment: Speci men Type: BLOOD SPECIMENOrdering Facility: [facility] Address: [address] [place] [address] Performed By: #### 5 7021-8 ####[facility]ORATORYCLIA [id number] [address] Hemoglobin (Bld) [Mass/Vol] 7.9 g/dL Low 13.0-17.0 [facility] Comment on above: Order Comment: Speci men Type: BLOOD SPECIMENOrdering Facility: [facility] Address: [address] [place] [address] Performed By: #### 5 7021-8 ####[facility]ORATORYCLIA [id number] [address] IMMATURE GRAN % 0.4 % Normal [facility] Comment on above: Order Comment: Speci men Type: BLOOD SPECIMENOrdering Facility: [facility] Address: [address] [place] [address] Performed By: #### 5 7021-8 ####[facility] LABORATORYCLIA [id number] [address] IMMATURE GRAN ABS 0.04 k/uL Normal <0.10 [facility] Comment on above: Order Comment: Speci men Type: BLOOD SPECIMENOrdering Facility: [facility] Address: [address] [place] [address] Performed By: #### 5 7021-8 ####[facility] LABORATORYCLIA [id number] [place] [address] [place] Lymphocytes (Bld) [#/Vol] 1.66 10*3/uL Normal 1.00-4.00 [facility] Comment on above: Order Comment: Speci men Type: BLOOD SPECIMENOrdering Facility: [facility] Address: [address] [place] [address] Performed By: #### 5 7021-8 ####[facility]ORATORYCLIA [id number] [address] [place] [facility] Lymphocytes/100 WBC (Bld) 16.2 % Normal [facility] Comment on above: Order Comment: Speci men Type: BLOOD SPECIMENOrdering Facility: [facility] Address: [address] [place] [address] Performed By: #### 5 7021-8 ####[facility]ORATORYCLIA [id number] [address] [place] MCH (RBC) [Entitic mass] 28.5 pg Normal 26.0-34.0 [facility] Comment on above: Order Comment: Speci men Type: BLOOD SPECIMENOrdering Facility: [facility] Address: [address] [place] [address] Performed By: #### 5 7021-8 ####[facility] LABORATORYCLIA [id number] [address] [place] MCHC (RBC) [Mass/Vol] 31.0 g/dL Normal 30.5-36.0 [facility] Comment on above: Order Comment: Speci men Type: BLOOD SPECIMENOrdering Facility: [facility] Address: [address] [place] [address] Performed By: #### 5 7021-8 ####[facility] LABORATORYCLIA [id number] [address] STATES [facility] MCV (RBC) [Entitic vol] 92.1 fL Normal 80.0-100.0 [facility] Comment on above: Order Comment: Speci men Type: BLOOD SPECIMENOrdering Facility: [facility] Address: [address] [place] [address] Performed By: #### 5 7021-8 ####[facility]ORATORYCLIA [id number] [address] [place] Monocytes (Bld) [#/Vol] 0.51 10*3/uL Normal <0.87 [facility] Comment on above: Order Comment: Speci men Type: BLOOD SPECIMENOrdering Facility: [facility] Address: [address] [place] [address] Performed By: #### 5 7021-8 ####[facility]ATORYCLIA [id number] [address] [place] Monocytes/100 WBC (Bld) 5.0 % Normal [facility] Comment on above: Order Comment: Speci men Type: BLOOD SPECIMENOrdering Facility: [facility] Address: [address] [place] [address] Performed By: #### 5 7021-8 ####[facility]ORATORYCLIA [id number] [address] [place] Neutrophils (Bld) [#/Vol] 7.91 10*3/uL High 1.45-7.50 [facility] Comment on above: Order Comment: Speci men Type: BLOOD SPECIMENOrdering Facility: [facility] Address: [address] [place] [address] Performed By: #### 5 7021-8 ####[facility]ATORYCLIA [id number] [address] [place] Neutrophils/100 WBC (Bld) 76.9 % Normal [facility] Comment on above: Order Comment: Speci men Type: BLOOD SPECIMENOrdering Facility: [facility] Address: [address] [place] [address] Performed By: #### 5 7021-8 ####[facility]ATORYCLIA [id number] [place] [address] [place] Nucleated RBC (Bld) [#/Vol] 10*3/uL Normal <0.01 [facility] Comment on above: Order Comment: Speci men Type: BLOOD SPECIMENOrdering Facility: [facility] Address: [address] [place] [address] Performed By: #### 5 7021-8 ####[facility]ORATORYCLIA [id number] [address] Nucleated RBC/100 WBC (Bld) [Ratio] 0.0 /100 WBC Normal [facility] Comment on above: Order Comment: Speci men Type: BLOOD SPECIMENOrdering Facility: [facility] Address: [address] [place] [address] Performed By: #### 5 7021-8 ####[facility]ORATORYCLIA [id number] [address] [place] Platelet mean volume (Bld) [Entitic vol] 10.3 fL Normal 9.0-12.7 [facility] Comment on above: Order Comment: Speci men Type: BLOOD SPECIMENOrdering Facility: [facility] Address: [address] [place] [address] Performed By: #### 5 7021-8 ####[facility]ORATORYCLIA [id number] [address] [place] Platelets (Bld) [#/Vol] 152 10*3/uL Normal 150-400 [facility] Comment on above: Order Comment: Speci men Type: BLOOD SPECIMENOrdering Facility: [facility] Address: [address] [place], [place] [address] Performed By: #### 5 7021-8 ####[facility]ORATORYCLIA [id number] [address] [place] RBC (Bld) [#/Vol] 2.77 10*6/uL Low 4.20-6.00 [facility] Comment on above: Order Comment: Speci men Type: BLOOD SPECIMENOrdering Facility: [facility] Address: [address] [place] [address] Performed By: #### 5 7021-8 ####[facility] LABORATORYCLIA [id number] [address] [place] WBC (Bld) [#/Vol] 10.27 10*3/uL Normal 3.70-11.00 [facility] Comment on above: Order Comment: Speci men Type: BLOOD SPECIMENOrdering Facility: [facility] Address: [address] [place] [address] Performed By: #### 5 7021-8 ####[facility] LABORATORYCLIA [id number] [address] [place] Magnesium SerPl-mCncon 08-10 Magnesium [Mass/Vol] 1.8 mg/dL Normal 1.7-2.3 [facility] Comment on above: Order Comment: Speci men Type: BLOOD SPECIMENOrdering Facility: [facility] Address: [address] [place] [address] Performed By: #### 1 9123-9, 2777-1, 43066-6 ####[facility] LABORATORYCLIA [id number] [address] [place] NURSING PROGon 08-10-2021 NURSING PROG Normal [facility] NURSING PROG Normal [facility] NUTRITIONon 08-10-2021 NUTRITION Normal [facility] Phosphate SerPl-mCncon 08-10 Phosphate [Mass/Vol] 3.7 mg/dL Normal 2.7-4.8 [facility] Comment on above: Order Comment: Speci men Type: BLOOD SPECIMENOrdering Facility: [facility] Address: [address] [place] [address] Performed By: #### 1 9123-9, 2777-1, 00304-0 ####[facility] LABORATORYCLIA [id number] [address] [place] ALLIED HEALTHon 08-09-2021 ALLIED HEALTH Normal [facility] ANES POSTPROC EVALon 022 ANES POSTPROC EVAL Normal [facility] ANES PRE-OPon 08-09-2021 ANES PRE-OP Normal [facility] BRIEF OP NOTon 08-09-2021 BRIEF OP NOT Normal [facility] Basic metabolic 2000 panelon 08-09-2021 Anion gap [Moles/Vol] 8 mmol/L Low 9-18 [facility] Comment on above: Order Comment: Speci men Type: BLOOD SPECIMENOrdering Facility: [facility] Address: [address] [place] [address] Performed By: #### 2 4321-2, , 2776-05 ####[facility] LABORATORYCLIA [id number] [place] [address] [place] Calcium [Mass/Vol] 9.2 mg/dL Normal 8.5-10.2 [facility] Comment on above: Order Comment: Speci men Type: BLOOD SPECIMENOrdering Facility: [facility] Address: [address] [place] [address] Performed By: #### 2 4321-2, , 2776-05 ####[facility] LABORATORYCLIA [id number] [place] [address] [place] Chloride [Moles/Vol] 97 mmol/L Normal 97-105 [facility] Comment on above: Order Comment: Speci men Type: BLOOD SPECIMENOrdering Facility: [facility] Address: [address] [place] [address] Performed By: #### 2 4321-2, , 2776-05 ####[facility] LABORATORYCLIA [id number] [place] [address] [place] CO2 [Moles/Vol] 30 mmol/L Normal 22-30 [facility] Comment on above: Order Comment: Speci men Type: BLOOD SPECIMENOrdering Facility: [facility] Address: [address] [place] [address] Performed By: #### 2 4321-2, , 2776-05 ####[facility] LABORATORYCLIA [id number] [place] [address] [place] Creatinine [Mass/Vol] 0.51 mg/dL Low 0.73-1.22 [facility] Comment on above: Order Comment: Johncara feldman Type: BLOOD SPECIMENOrdering Facility: [facility] Address: [address] [place] [id number] Performed By: #### 2 4321-2, 68725-9, 2776-05 ####[facility] LABORATORYCLIA [id number] [place] [id number] [place] ESTIMATED GLOMERULAR FILTRATION RATE 110 mL/min/1.73m??? Normal >=60 [facility] Comment on above: Order Comment: Shira feldman Type: BLOOD SPECIMENOrdering Facility: [facility] Address: [address] [id number] Result Comment: Luzmaria mated Glomerular Filtration Rate (eGFR) is calculated using the 2020 CKD-EPI creatinine equation. This equation utilizes serum creatinine, sex, and age as parameters. The creatinine assay has traceable calibration to isotope dilution-mass spectrometry. Refer to KDIGO guidelines for clinical interpretation. In patients with unstable renal function, e.g. those with acute kidney injury, the eGFR may not accurately reflect actual GFR. Performed By: #### 2 4321-2, , 2776-05 ####[facility] LABORATORYCLIA [id number] [place] [address] [place] Glucose [Mass/Vol] 106 mg/dL High 74-99 [facility] Comment on above: Order Comment: Shira feldman Type: BLOOD SPECIMENOrdering Facility: [facility] Address: [address] Result Comment: The [place] [employer] (ADA) provides guidance for cutoff values for fasting glucose and random glucose. The ADA defines fasting as no caloric intake for at least 8 hours. Fasting plasma glucose results between 100 to 125 mg/dL indicate increased risk for diabetes (prediabetes).Fasting plasma glucose results greater than or equal to 126 mg/dL meet the criteria for diagnosis of diabetes. In the absence of unequivocal hyperglycemia, results should be confirmed by repeat testing. In a patient with classic symptoms of hyperglycemia or hyperglycemic crisis, random plasma glucose results greater than or equal to 200 mg/dL meet the criteria for diagnosis of diabetes.Reference: Standards of Medical Care in Diabetes 2016, [place] [employer]. Diabetes Care. 2016.39(Suppl 1). Performed By: #### 2 4321-2, , 2776- ####[facility] LABORATORYCLIA [id number] [place] [address] [place] Potassium [Moles/Vol] 4.1 mmol/L Normal 3.7-5.1 [facility] Comment on above: Order Comment: Speci men Type: BLOOD SPECIMENOrdering Facility: [facility] Address: [address] [place] [address] Performed By: #### 2 4321-2, , 2776-05 ####[facility] LABORATORYCLIA [id number] [address] STATES OF [facility] Sodium [Moles/Vol] 135 mmol/L Low 136-144 [facility] Comment on above: Order Comment: Speci men Type: BLOOD SPECIMENOrdering Facility: [facility] Address: [address] [place] [address] Performed By: #### 2 4321-2, , 2776-05 ####[facility] LABORATORYCLIA [id number] [address] STATES [facility] Urea nitrogen [Mass/Vol] 26 mg/dL High 9-24 [facility] Comment on above: Order Comment: Speci men Type: BLOOD SPECIMENOrdering Facility: [facility] Address: [address] [place] [address] Performed By: #### 2 4321-2, , 27711-04 ####[facility] LABORATORYCLIA [id number] [place] [address] [place] CBC W Auto Differential pane l (Bld)on 08-09-2021 Basophils (Bld) [#/Vol] 0.06 10*3/uL Normal <0.11 [facility] Comment on above: Order Comment: Speci men Type: BLOOD SPECIMENOrdering Facility: [facility] Address: [address] [place] [address] Performed By: #### 5 7021-8 ####[facility]ORATORYCLIA [id number] [address] STATES [facility] Basophils/100 WBC (Bld) 0.5 % Normal [facility] Comment on above: Order Comment: Speci men Type: BLOOD SPECIMENOrdering Facility: [facility] Address: [address] [place] [address] Performed By: #### 5 7021-8 ####[facility]ORATORYCLIA [id number] [address] [place] Differential cell count method Nom (Bld) Auto Normal [facility] Comment on above: Order Comment: Speci men Type: BLOOD SPECIMENOrdering Facility: [facility] Address: [address] [place] [address] Performed By: #### 5 7021-8 ####[facility]ORATORYCLIA [id number] [address] [place] Eosinophils (Bld) [#/Vol] 0.42 10*3/uL Normal <0.46 [facility] Comment on above: Order Comment: Speci men Type: BLOOD SPECIMENOrdering Facility: [facility] Address: [address] [place] [address] Performed By: #### 5 7021-8 ####[facility]ATORYCLIA [id number] [address] Eosinophils/100 WBC (Bld) 3.8 % Normal [facility] Comment on above: Order Comment: Speci men Type: BLOOD SPECIMENOrdering Facility: [facility] Address: [address] [place] [address] Performed By: #### 5 7021-8 ####[facility]ORATORYCLIA [id number] [address] [place] Erythrocyte distribution width (RBC) [Ratio] 17.6 % High 11.5-15.0 [facility] Comment on above: Order Comment: Speci men Type: BLOOD SPECIMENOrdering Facility: [facility] Address: [address] [place] [address] Performed By: #### 5 7021-8 ####[facility] LABORATORYCLIA [id number] [address] Hematocrit (Bld) [Volume fraction] 29.3 % Low 39.0-51.0 [facility] Comment on above: Order Comment: Speci men Type: BLOOD SPECIMENOrdering Facility: [facility] Address: [address] [place] [address] Performed By: #### 5 7021-8 ####[facility] LABORATORYCLIA [id number] [address] Hemoglobin (Bld) [Mass/Vol] 9.0 g/dL Low 13.0-17.0 [facility] Comment on above: Order Comment: Speci men Type: BLOOD SPECIMENOrdering Facility: [facility] Address: [address] [place] [address] Performed By: #### 5 7021-8 ####[facility] LABORATORYCLIA [id number] [address] IMMATURE GRAN % 0.5 % Normal [facility] Comment on above: Order Comment: Speci men Type: BLOOD SPECIMENOrdering Facility: [facility] Address: [address] [place] [address] Performed By: #### 5 7021-8 ####[facility] LABORATORYCLIA [id number] [address] IMMATURE GRAN ABS 0.05 k/uL Normal <0.10 [facility] Comment on above: Order Comment: Speci men Type: BLOOD SPECIMENOrdering Facility: [facility] Address: [address] [place] [address] Performed By: #### 5 7021-8 ####[facility] LABORATORYCLIA [id number] [address] Lymphocytes (Bld) [#/Vol] 2.00 10*3/uL Normal 1.00-4.00 [facility] Comment on above: Order Comment: Speci men Type: BLOOD SPECIMENOrdering Facility: [facility] Address: [address] [place] [address] Performed By: #### 5 7021-8 ####[facility] LABORATORYCLIA [id number] [address] Lymphocytes/100 WBC (Bld) 18.1 % Normal [facility] Comment on above: Order Comment: Speci men Type: BLOOD SPECIMENOrdering Facility: [facility] Address: [address] [place] [address] Performed By: #### 5 7021-8 ####[facility] LABORATORYCLIA [id number] [address] MCH (RBC) [Entitic mass] 28.1 pg Normal 26.0-34.0 [facility] Comment on above: Order Comment: Speci men Type: BLOOD SPECIMENOrdering Facility: [facility] Address: [address] [place] [address] Performed By: #### 5 7021-8 ####[facility] LABORATORYCLIA [id number] [address] MCHC (RBC) [Mass/Vol] 30.7 g/dL Normal 30.5-36.0 [facility] Comment on above: Order Comment: Speci men Type: BLOOD SPECIMENOrdering Facility: [facility] Address: [address] [place] [address] Performed By: #### 5 7021-8 ####[facility] LABORATORYCLIA [id number] [address] MCV (RBC) [Entitic vol] 91.6 fL Normal 80.0-100.0 [facility] Comment on above: Order Comment: Speci men Type: BLOOD SPECIMENOrdering Facility: [facility] Address: [address] [place] [address] Performed By: #### 5 7021-8 ####[facility] LABORATORYCLIA [id number] [address] [place] Monocytes (Bld) [#/Vol] 0.68 10*3/uL Normal <0.87 [facility] Comment on above: Order Comment: Speci men Type: BLOOD SPECIMENOrdering Facility: [facility] Address: [address] [place] [address] Performed By: #### 5 7021-8 ####[facility] LABORATORYCLIA [id number] [address] [place] Monocytes/100 WBC (Bld) 6.2 % Normal [facility] Comment on above: Order Comment: Speci men Type: BLOOD SPECIMENOrdering Facility: [facility] Address: [address] [place] [address] Performed By: #### 5 7021-8 ####[facility] LABORATORYCLIA [id number] [address] [place] Neutrophils (Bld) [#/Vol] 7.82 10*3/uL High 1.45-7.50 [facility] Comment on above: Order Comment: Speci men Type: BLOOD SPECIMENOrdering Facility: [facility] Address: [address] [place] [address] Performed By: #### 5 7021-8 ####[facility] LABORATORYCLIA [id number] [address] [place] Neutrophils/100 WBC (Bld) 70.9 % Normal [facility] Comment on above: Order Comment: Speci men Type: BLOOD SPECIMENOrdering Facility: [facility] Address: [address] [place] [address] Performed By: #### 5 7021-8 ####[facility] LABORATORYCLIA [id number] [address] [place] Nucleated RBC (Bld) [#/Vol] 10*3/uL Normal <0.01 [facility] Comment on above: Order Comment: Speci men Type: BLOOD SPECIMENOrdering Facility: [facility] Address: [address] [place] [address] Performed By: #### 5 7021-8 ####[facility] LABORATORYCLIA [id number] [address] [place] Nucleated RBC/100 WBC (Bld) [Ratio] 0.0 /100 WBC Normal [facility] Comment on above: Order Comment: Speci men Type: BLOOD SPECIMENOrdering Facility: [facility] Address: [address] [place] [address] Performed By: #### 5 7021-8 ####[facility] LABORATORYCLIA [id number] [address] [place] Platelet mean volume (Bld) [Entitic vol] 10.1 fL Normal 9.0-12.7 [facility] Comment on above: Order Comment: Speci men Type: BLOOD SPECIMENOrdering Facility: [facility] Address: [address] [place] [address] Performed By: #### 5 7021-8 ####[facility] LABORATORYCLIA [id number] [address] [place] Platelets (Bld) [#/Vol] 160 10*3/uL Normal 150-400 [facility] Comment on above: Order Comment: Speci men Type: BLOOD SPECIMENOrdering Facility: [facility] Address: [address] [place] [address] Performed By: #### 5 7021-8 ####[facility] LABORATORYCLIA [id number] [address] [place] RBC (Bld) [#/Vol] 3.20 10*6/uL Low 4.20-6.00 [facility] Comment on above: Order Comment: Speci men Type: BLOOD SPECIMENOrdering Facility: [facility] Address: [address] [place] [address] Performed By: #### 5 7021-8 ####[facility] LABORATORYCLIA [id number] [address] [place] WBC (Bld) [#/Vol] 11.03 10*3/uL High 3.70-11.00 [facility] Comment on above: Order Comment: Shira feldman Type: BLOOD SPECIMENOrdering Facility: [facility] Address: [address] [place] [address] Performed By: #### 5 7021-8 ####[facility] LABORATORYCLIA [id number] [address] [place] CONSULT PROGon 08-09-2021 CONSULT PROG Normal [facility] CT BRAIN WO IVCONon 08-10-[address] BRAIN WO IVCON Normal [facility] CT BRAIN WO IVCON Normal [facility] Magnesium SerPl-mCncon 08-09 Magnesium [Mass/Vol] 2.0 mg/dL Normal 1.7-2.3 [facility] Comment on above: Order Comment: Shira feldman Type: BLOOD SPECIMENOrdering Facility: [facility] Address: [address] [place] [address] Performed By: #### 2 4321-2, 63099-5, 2777-1 ####[facility] LABORATORYCLIA [id number] [address] OF [facility] NURSING PROGon 08-09-2021 NURSING PROG Normal [facility] OPERATIVE NOon 08-09-2021 OPERATIVE NO Normal [facility] PT panel Coag (PPP)on 2021 INR Coag (PPP) [Relative time] 1.1 {INR} Normal 0.9-1.3 [facility] Comment on above: Order Comment: Shira feldman Type: BLOOD SPECIMENOrdering Facility: [facility] Address: [address] [place], [place] [address] Result Comment: Yris min K Antagonist (VKA) Therapeutic Range: INR 2 to 3 (Target INR of 2.5)Note: For patients treated with VKA drugs, such as warfarin, the [place] [employer] 2012 Guideline recommends a therapeutic INR range of 2 to 3 (target INR of 2.5). This recommendation includes high-risk patients with antiphospholipid syndrome with previous arterial or venous thromboembolism, current-generation mechanical or bioprosthetic aortic heart valve replacement.Note: Patients with mechanical aortic valve replacement and additional risk factors for thromboembolic events (atrial fibrillation, previous thromboembolism, LV dysfunction, hypercoagulable conditions) or an older generation mechanical AVR (i.e., ball in-Cage) or any mechanical MVR should have a INR therapeutic range of 2.5 to 3.5 (target INR of 3).Jeffy GUZMAN, et al. Chest 2012, 141:7S-47SAlba RA, et al. [facility] 2017, 70: 252-289 Performed By: #### 3 4528-0, 59909-8 ####[facility] LABORATORYCLIA [id number] [place] [address] [place] PT Coag (PPP) [Time] 11.7 s Normal 9.7-13.0 [facility] Comment on above: Order Comment: Speci men Type: BLOOD SPECIMENOrdering Facility: [facility] Address: [address] [place] [address] Performed By: #### 3 4528-0, 81513-7 ####[facility] LABORATORYCLIA [id number] [address] [place] Phosphate SerPl-mCncon 08-09 Phosphate [Mass/Vol] 4.0 mg/dL Normal 2.7-4.8 [facility] Comment on above: Order Comment: Speci men Type: BLOOD SPECIMENOrdering Facility: [facility] Address: [address] [place] [address] Performed By: #### 2 4321-2, 23785-7, 2777-1 ####[facility] LABORATORYCLIA [id number] [place] [address] [place] THERAPY NTon 08-09-2021 THERAPY NT Normal [facility] THERAPY NT Normal [facility] TYPE AND SCREENon 08-09-2021 ABO O Normal [facility] Comment on above: Order Comment: Speci men Type: BLOOD SPECIMENOrdering Facility: [facility] Address: [address] [place] [address] Performed By: #### T SCR ####[facility] BLOOD BANKCLIA [id number] [address] HISTORICAL AB SCR STATUS Negative Normal [facility] Comment on above: Order Comment: Speci men Type: BLOOD SPECIMENOrdering Facility: [facility] Address: [address] [place] [address] Performed By: #### T SCR ####[facility] BLOOD BANKCLIA [id number] [place] [id number] [facility] [place] Rh Nom (Bld) Positive Normal [facility] Comment on above: Order Comment: Speci men Type: BLOOD SPECIMENOrdering Facility: [facility] Address: [address] [place] [address] Performed By: #### T SCR ####[facility] BLOOD BANKCLIA [id number] [address] TYPE AND SCREEN EXPIRATION 08/12/2021 23:59 Normal [facility] Comment on above: Order Comment: Speci men Type: BLOOD SPECIMENOrdering Facility: [facility] Address: [address] [place] [address] Performed By: #### T SCR ####[facility] BLOOD BANKCLIA [id number] [address] [place] [facility] XR ABD 2V SUPINE W UPR/DECUB /CTLon 08-09-2021 XR ABD 2V SUPINE W UPR/DECUB/CTL Normal [facility] XR CHEST 1V FRONTALon 2021 XR CHEST 1V FRONTAL Normal [facility] XR NECK SOFT TISSUE 2V AP/LA Ton 08-09-2021 XR NECK SOFT TISSUE 2V AP/LAT Normal [facility] XR SKULL 2V AP/LATon 022 XR SKULL 2V AP/LAT Normal [facility] aPTT PPPon 08-09-2021 aPTT Coag (PPP) [Time] 26.8 s Normal 23.0-32.4 [facility] Comment on above: Order Comment: Speci men Type: BLOOD SPECIMENOrdering Facility: [facility] Address: [address] [place] [address] Performed By: #### 3 4528-0, 84414-4 ####[facility] LABORATORYCLIA [id number] [address] [place] [facility] CASE MANAGEMon 08-08-2021 CASE MANAGEM Normal [facility] CBC W Auto Differential pane l (Bld)on 08-08-2021 Basophils (Bld) [#/Vol] 0.05 10*3/uL Normal <0.11 [facility] Comment on above: Order Comment: Speci men Type: BLOOD SPECIMENOrdering Facility: [facility] Address: [address] [place] [address] Performed By: #### 5 7021-8 ####[facility] LABORATORYCLIA [id number] [address] Basophils/100 WBC (Bld) 0.5 % Normal [facility] Comment on above: Order Comment: Speci men Type: BLOOD SPECIMENOrdering Facility: [facility] Address: [address] [place] [address] Performed By: #### 5 7021-8 ####[facility] LABORATORYCLIA [id number] [address] Differential cell count method Nom (Bld) Auto Normal [facility] Comment on above: Order Comment: Speci men Type: BLOOD SPECIMENOrdering Facility: [facility] Address: [address] [address] Performed By: #### 5 7021-8 ####[facility] LABORATORYCLIA [id number] [address] [place] [facility] Eosinophils (Bld) [#/Vol] 0.17 10*3/uL Normal <0.46 [facility] Comment on above: Order Comment: Speci men Type: BLOOD SPECIMENOrdering Facility: [facility] Address: [address] [address] Performed By: #### 5 7021-8 ####[facility] LABORATORYCLIA [id number] [address] Eosinophils/100 WBC (Bld) 1.6 % Normal [facility] Comment on above: Order Comment: Speci men Type: BLOOD SPECIMENOrdering Facility: [facility] Address: [address] [place] [address] Performed By: #### 5 7021-8 ####[facility] LABORATORYCLIA [id number] [address] [place] Erythrocyte distribution width (RBC) [Ratio] 17.8 % High 11.5-15.0 [facility] Comment on above: Order Comment: Speci men Type: BLOOD SPECIMENOrdering Facility: [facility] Address: [address] [place] [address] Performed By: #### 5 7021-8 ####[facility] LABORATORYCLIA [id number] [address] Hematocrit (Bld) [Volume fraction] 29.6 % Low 39.0-51.0 [facility] Comment on above: Order Comment: Speci men Type: BLOOD SPECIMENOrdering Facility: [facility] Address: [address] [place] [address] Performed By: #### 5 7021-8 ####[facility] LABORATORYCLIA [id number] [address] Hemoglobin (Bld) [Mass/Vol] 9.0 g/dL Low 13.0-17.0 [facility] Comment on above: Order Comment: Speci men Type: BLOOD SPECIMENOrdering Facility: [facility] Address: [address] [place] [address] Performed By: #### 5 7021-8 ####[facility] LABORATORYCLIA [id number] [address] IMMATURE GRAN % 0.5 % Normal [facility] Comment on above: Order Comment: Speci men Type: BLOOD SPECIMENOrdering Facility: [facility] Address: [address] [place] [address] Performed By: #### 5 7021-8 ####[facility]ORATORYCLIA [id number] [address] IMMATURE GRAN ABS 0.05 k/uL Normal <0.10 [facility] Comment on above: Order Comment: Speci men Type: BLOOD SPECIMENOrdering Facility: [facility] Address: [address] [place] [address] Performed By: #### 5 7021-8 ####[facility] LABORATORYCLIA [id number] [address] Lymphocytes (Bld) [#/Vol] 1.93 10*3/uL Normal 1.00-4.00 [facility] Comment on above: Order Comment: Speci men Type: BLOOD SPECIMENOrdering Facility: [facility] Address: [address] [place] [address] Performed By: #### 5 7021-8 ####[facility] LABORATORYCLIA [id number] [address] Lymphocytes/100 WBC (Bld) 18.2 % Normal [facility] Comment on above: Order Comment: Speci men Type: BLOOD SPECIMENOrdering Facility: [facility] Address: [address] [place] [address] Performed By: #### 5 7021-8 ####[facility] LABORATORYCLIA [id number] [address] MCH (RBC) [Entitic mass] 28.1 pg Normal 26.0-34.0 [facility] Comment on above: Order Comment: Speci men Type: BLOOD SPECIMENOrdering Facility: [facility] Address: [address] [place] [address] Performed By: #### 5 7021-8 ####[facility] LABORATORYCLIA [id number] [address] MCHC (RBC) [Mass/Vol] 30.4 g/dL Low 30.5-36.0 [facility] Comment on above: Order Comment: Speci men Type: BLOOD SPECIMENOrdering Facility: [facility] Address: [address] [place] [address] Performed By: #### 5 7021-8 ####[facility] LABORATORYCLIA [id number] [address] OF [facility] MCV (RBC) [Entitic vol] 92.5 fL Normal 80.0-100.0 [facility] Comment on above: Order Comment: Speci men Type: BLOOD SPECIMENOrdering Facility: [facility] Address: [address] [place] [address] Performed By: #### 5 7021-8 ####[facility] LABORATORYCLIA [id number] [address] [place] Monocytes (Bld) [#/Vol] 0.75 10*3/uL Normal <0.87 [facility] Comment on above: Order Comment: Speci men Type: BLOOD SPECIMENOrdering Facility: [facility] Address: [address] [place] [address] Performed By: #### 5 7021-8 ####[facility] LABORATORYCLIA [id number] [address] Monocytes/100 WBC (Bld) 7.1 % Normal [facility] Comment on above: Order Comment: Speci men Type: BLOOD SPECIMENOrdering Facility: [facility] Address: [address] [place] [address] Performed By: #### 5 7021-8 ####[facility] LABORATORYCLIA [id number] [address] [place] Neutrophils (Bld) [#/Vol] 7.65 10*3/uL High 1.45-7.50 [facility] Comment on above: Order Comment: Speci men Type: BLOOD SPECIMENOrdering Facility: [facility] Address: [address] [place] [address] Performed By: #### 5 7021-8 ####[facility] LABORATORYCLIA [id number] [address] [place] Neutrophils/100 WBC (Bld) 72.1 % Normal [facility] Comment on above: Order Comment: Speci men Type: BLOOD SPECIMENOrdering Facility: [facility] Address: [address] [place], [place] [address] Performed By: #### 5 7021-8 ####[facility] LABORATORYCLIA [id number] [address] [place] Nucleated RBC (Bld) [#/Vol] 10*3/uL Normal <0.01 [facility] Comment on above: Order Comment: Speci men Type: BLOOD SPECIMENOrdering Facility: [facility] Address: [address] [place] [address] Performed By: #### 5 7021-8 ####[facility] LABORATORYCLIA [id number] [address] [place] Nucleated RBC/100 WBC (Bld) [Ratio] 0.0 /100 WBC Normal [facility] Comment on above: Order Comment: Speci men Type: BLOOD SPECIMENOrdering Facility: [facility] Address: [address] [place] [address] Performed By: #### 5 7021-8 ####[facility] LABORATORYCLIA [id number] [address] [place] Platelet mean volume (Bld) [Entitic vol] 9.8 fL Normal 9.0-12.7 [facility] Comment on above: Order Comment: Speci men Type: BLOOD SPECIMENOrdering Facility: [facility] Address: [address] [place], [place] [address] Performed By: #### 5 7021-8 ####[facility] LABORATORYCLIA [id number] [place] [address] [place] Platelets (Bld) [#/Vol] 175 10*3/uL Normal 150-400 [facility] Comment on above: Order Comment: Speci men Type: BLOOD SPECIMENOrdering Facility: [facility] Address: [address] [place], [place] [address] Performed By: #### 5 7021-8 ####[facility] LABORATORYCLIA [id number] [address] [place] RBC (Bld) [#/Vol] 3.20 10*6/uL Low 4.20-6.00 [facility] Comment on above: Order Comment: Speci men Type: BLOOD SPECIMENOrdering Facility: [facility] Address: [address] [place] [address] Performed By: #### 5 7021-8 ####[facility] LABORATORYCLIA [id number] [address] WBC (Bld) [#/Vol] 10.60 10*3/uL Normal 3.70-11.00 [facility] Comment on above: Order Comment: Speci men Type: BLOOD SPECIMENOrdering Facility: [facility] Address: [address] [place] [address] Performed By: #### 5 7021-8 ####[facility]ITALCLIA [id number] [address] [facility] CT BRAIN WO IVCONon 08-09-19 CT BRAIN WO IVCON Normal [facility] NURSING PROGon 08-08-2021 NURSING PROG Normal [facility] Prealbumin [Mass/Vol]on Prealbumin Nephelometry [Mass/Vol] 29 mg/dL Normal 17-36 [facility] Comment on above: Order Comment: Speci men Type: BLOOD SPECIMENOrdering Facility: [facility] Address: [address] [place] [address] Performed By: #### 1 4338-8 ####[facility] LABORATORYCLIA [id number] [address] [place] SARS-CoV-2 RNA Resp Ql MEGAN+p robeon 08-08-2021 SARS-CoV-2 (COVID-19) RNA MEGAN+probe Ql (Resp) COVID 19 RESULT: SARS-CoV-2 (Agent of COVID-19) Not Detected by RT-PCR or equivalent method. This test has been authorized by FDA under an Emergency Use Authorization (EUA). Normal [facility] Comment on above: Performed By: #### 9 4500-6 ####[facility] LABORATORYCLIA [id number] [place] [address] [place] ALLIED HEALTHon 08-07-2021 ALLIED HEALTH Normal [facility] Basic metabolic 2000 panelon 08-07-2021 Anion gap [Moles/Vol] 9 mmol/L Normal 9-18 [facility] Comment on above: Order Comment: Speci men Type: BLOOD SPECIMENOrdering Facility: [facility] Address: [address] [place] [address] Performed By: #### 2 4321-2, 2776-, , HFP ####[facility] LABORATORYCLIA [id number] [place] [address] [place] Calcium [Mass/Vol] 9.4 mg/dL Normal 8.5-10.2 [facility] Comment on above: Order Comment: Speci men Type: BLOOD SPECIMENOrdering Facility: [facility] Address: [address] [place] [address] Performed By: #### 2 4321-2, 2776-, , HFP ####[facility] LABORATORYCLIA [id number] [place] [address] [place] Chloride [Moles/Vol] 98 mmol/L Normal 97-105 [facility] Comment on above: Order Comment: Speci men Type: BLOOD SPECIMENOrdering Facility: [facility] Address: [address] [address] Performed By: #### 2 4321-2, 2776-, , HFP ####[facility] LABORATORYCLIA [id number] [place] [address] [place] CO2 [Moles/Vol] 29 mmol/L Normal 22-30 [facility] Comment on above: Order Comment: Speci men Type: BLOOD SPECIMENOrdering Facility: [facility] Address: [address] [address] Performed By: #### 2 4321-2, 2776-, , [facility] ####[facility] HOSPITALIA [id number] [place] [address] [place] [facility] Creatinine [Mass/Vol] 0.67 mg/dL Low 0.73-1.22 [facility] Comment on above: Order Comment: Shira feldman Type: BLOOD SPECIMENOrdering Facility: [facility] Address: [address] [place], [place] [address] Performed By: #### 2 4321-2, 2776-, , [facility] ####[facility] HOSPITALIA [id number] [place] [address] [facility] ESTIMATED GLOMERULAR FILTRATION RATE 101 mL/min/1.73m??? Normal >=60 [facility] Comment on above: Order Comment: Shira feldman Type: BLOOD SPECIMENOrdering Facility: [facility] Address: [address] [place] [address] Result Comment: Luzmaria mated Glomerular Filtration Rate (eGFR) is calculated using the 2020 CKD-EPI creatinine equation. This equation utilizes serum creatinine, sex, and age as parameters. The creatinine assay has traceable calibration to isotope dilution-mass spectrometry. Refer to KDIGO guidelines for clinical interpretation. In patients with unstable renal function, e.g. those with acute kidney injury, the eGFR may not accurately reflect actual GFR. Performed By: #### 2 4321-2, 2776-, , [facility] ####[facility] HOSPITALIA [id number] [place] [address] [place] Glucose [Mass/Vol] 117 mg/dL High 74-99 [facility] Comment on above: Order Comment: Speci men Type: BLOOD SPECIMENOrdering Facility: [facility] Address: [address] [id number] Result Comment: The [place] [employer] Association (ADA) provides guidance for cutoff values for fasting glucose and random glucose. The ADA defines fasting as no caloric intake for at least 8 hours. Fasting plasma glucose results between 100 to 125 mg/dL indicate increased risk for diabetes (prediabetes).Fasting plasma glucose results greater than or equal to 126 mg/dL meet the criteria for diagnosis of diabetes. In the absence of unequivocal hyperglycemia, results should be confirmed by repeat testing. In a patient with classic symptoms of hyperglycemia or hyperglycemic crisis, random plasma glucose results greater than or equal to 200 mg/dL meet the criteria for diagnosis of diabetes.Reference: Standards of Medical Care in Diabetes 2016, [place] [employer]. Diabetes Care. 2016.39(Suppl 1). Performed By: #### 2 4321-2, 2776-, , [facility] ####[facility] LABORATORYCLIA [id number] [place] [address] [place] Potassium [Moles/Vol] 4.1 mmol/L Normal 3.7-5.1 [facility] Comment on above: Order Comment: Shira feldman Type: BLOOD SPECIMENOrdering Facility: [facility] Address: [address] [place] [address] Performed By: #### 2 4321-2, 2776-, , [facility] ####[facility]PITALCLIA [id number] [address] [place] Sodium [Moles/Vol] 136 mmol/L Normal 136-144 [facility] Comment on above: Order Comment: Shira feldman Type: BLOOD SPECIMENOrdering Facility: [facility] Address: [address] [place] [address] Performed By: #### 2 4321-2, 2776-05, , [facility] ####[facility] LABORATORYCLIA [id number] [address] [place] Urea nitrogen [Mass/Vol] 31 mg/dL High 9-24 [facility] Comment on above: Order Comment: Sihra feldman Type: BLOOD SPECIMENOrdering Facility: [facility] Address: [address] [place] [address] Performed By: #### 2 4321-2, 2776-05, , HFP ####[facility] LABORATORYCLIA [id number] [place] [address] [place] CBC W Auto Differential pane l (Bld)on 04-03-2022 Basophils (Bld) [#/Vol] 0.03 10*3/uL Normal <0.11 [facility] Comment on above: Order Comment: Speci men Type: BLOOD SPECIMENOrdering Facility: [facility] Address: [address] [place] [address] Performed By: #### 5 7021-8 ####[facility]ATORYCLIA [id number] [address] [place] Basophils/100 WBC (Bld) 0.3 % Normal [facility] Comment on above: Order Comment: Speci men Type: BLOOD SPECIMENOrdering Facility: [facility] Address: [address] [place] [address] Performed By: #### 5 7021-8 ####[facility]ORATORYCLIA [id number] [address] [place] Differential cell count method Nom (Bld) Auto Normal [facility] Comment on above: Order Comment: Speci men Type: BLOOD SPECIMENOrdering Facility: [facility] Address: [address] [place] [address] Performed By: #### 5 7021-8 ####[facility]ATORYCLIA [id number] [address] [place] Eosinophils (Bld) [#/Vol] 0.16 10*3/uL Normal <0.46 [facility] Comment on above: Order Comment: Speci men Type: BLOOD SPECIMENOrdering Facility: [facility] Address: [address] [place] [address] Performed By: #### 5 7021-8 ####[facility]ORATORYCLIA [id number] [address] STATES [facility] Eosinophils/100 WBC (Bld) 1.6 % Normal [facility] Comment on above: Order Comment: Speci men Type: BLOOD SPECIMENOrdering Facility: [facility] Address: [address] [place] [address] Performed By: #### 5 7021-8 ####[facility]ORATORYCLIA [id number] [address] Erythrocyte distribution width (RBC) [Ratio] 18.1 % High 11.5-15.0 [facility] Comment on above: Order Comment: Speci men Type: BLOOD SPECIMENOrdering Facility: [facility] Address: [address] [place] [address] Performed By: #### 5 7021-8 ####[facility] LABORATORYCLIA [id number] [address] Hematocrit (Bld) [Volume fraction] 30.6 % Low 39.0-51.0 [facility] Comment on above: Order Comment: Speci men Type: BLOOD SPECIMENOrdering Facility: [facility] Address: [address] [place] [address] Performed By: #### 5 7021-8 ####[facility] LABORATORYCLIA [id number] [address] Hemoglobin (Bld) [Mass/Vol] 9.4 g/dL Low 13.0-17.0 [facility] Comment on above: Order Comment: Speci men Type: BLOOD SPECIMENOrdering Facility: [facility] Address: [address] [place] [address] Performed By: #### 5 7021-8 ####[facility] LABORATORYCLIA [id number] [address] IMMATURE GRAN % 0.4 % Normal [facility] Comment on above: Order Comment: Speci men Type: BLOOD SPECIMENOrdering Facility: [facility] Address: [address] [place] [address] Performed By: #### 5 7021-8 ####[facility] LABORATORYCLIA [id number] [address] IMMATURE GRAN ABS 0.04 k/uL Normal <0.10 [facility] Comment on above: Order Comment: Speci men Type: BLOOD SPECIMENOrdering Facility: [facility] Address: [address] [place] [address] Performed By: #### 5 7021-8 ####[facility] LABORATORYCLIA [id number] [address] Lymphocytes (Bld) [#/Vol] 2.05 10*3/uL Normal 1.00-4.00 [facility] Comment on above: Order Comment: Speci men Type: BLOOD SPECIMENOrdering Facility: [facility] Address: [address] [place] [address] Performed By: #### 5 7021-8 ####[facility] LABORATORYCLIA [id number] [address] Lymphocytes/100 WBC (Bld) 20.2 % Normal [facility] Comment on above: Order Comment: Speci men Type: BLOOD SPECIMENOrdering Facility: [facility] Address: [address] [place] [address] Performed By: #### 5 7021-8 ####[facility] LABORATORYCLIA [id number] [address] MCH (RBC) [Entitic mass] 28.8 pg Normal 26.0-34.0 [facility] Comment on above: Order Comment: Speci men Type: BLOOD SPECIMENOrdering Facility: [facility] Address: [address] [place] [address] Performed By: #### 5 7021-8 ####[facility] LABORATORYCLIA [id number] [address] MCHC (RBC) [Mass/Vol] 30.7 g/dL Normal 30.5-36.0 [facility] Comment on above: Order Comment: Speci men Type: BLOOD SPECIMENOrdering Facility: [facility] Address: [address] [place] [address] Performed By: #### 5 7021-8 ####[facility] LABORATORYCLIA [id number] [address] [facility] MCV (RBC) [Entitic vol] 93.9 fL Normal 80.0-100.0 [facility] Comment on above: Order Comment: Speci men Type: BLOOD SPECIMENOrdering Facility: [facility] Address: [address] [place] [address] Performed By: #### 5 7021-8 ####[facility] LABORATORYCLIA [id number] [address] [place] Monocytes (Bld) [#/Vol] 0.64 10*3/uL Normal <0.87 [facility] Comment on above: Order Comment: Speci men Type: BLOOD SPECIMENOrdering Facility: [facility] Address: [address] [place] [address] Performed By: #### 5 7021-8 ####[facility] LABORATORYCLIA [id number] [address] Monocytes/100 WBC (Bld) 6.3 % Normal [facility] Comment on above: Order Comment: Speci men Type: BLOOD SPECIMENOrdering Facility: [facility] Address: [address] [place] [address] Performed By: #### 5 7021-8 ####[facility] LABORATORYCLIA [id number] [address] [place] Neutrophils (Bld) [#/Vol] 7.22 10*3/uL Normal 1.45-7.50 [facility] Comment on above: Order Comment: Speci men Type: BLOOD SPECIMENOrdering Facility: [facility] Address: [address] [place] [address] Performed By: #### 5 7021-8 ####[facility] LABORATORYCLIA [id number] [address] [place] Neutrophils/100 WBC (Bld) 71.2 % Normal [facility] Comment on above: Order Comment: Speci men Type: BLOOD SPECIMENOrdering Facility: [facility] Address: [address] [place] [address] Performed By: #### 5 7021-8 ####[facility] LABORATORYCLIA [id number] [place] [address] [place] Nucleated RBC (Bld) [#/Vol] 10*3/uL Normal <0.01 [facility] Comment on above: Order Comment: Speci men Type: BLOOD SPECIMENOrdering Facility: [facility] Address: [address] [address] Performed By: #### 5 7021-8 ####[facility] LABORATORYCLIA [id number] [address] [place] Nucleated RBC/100 WBC (Bld) [Ratio] 0.0 /100 WBC Normal [facility] Comment on above: Order Comment: Speci men Type: BLOOD SPECIMENOrdering Facility: [facility] Address: [address] [place] [address] Performed By: #### 5 7021-8 ####[facility] LABORATORYCLIA [id number] [address] [place] Platelet mean volume (Bld) [Entitic vol] 9.9 fL Normal 9.0-12.7 [facility] Comment on above: Order Comment: Speci men Type: BLOOD SPECIMENOrdering Facility: [facility] Address: [address] [place] [address] Performed By: #### 5 7021-8 ####[facility] LABORATORYCLIA [id number] [address] [place] Platelets (Bld) [#/Vol] 227 10*3/uL Normal 150-400 [facility] Comment on above: Order Comment: Speci men Type: BLOOD SPECIMENOrdering Facility: [facility] Address: [address] Performed By: #### 5 7021-8 ####[facility] LABORATORYCLIA [id number] [address] [place] RBC (Bld) [#/Vol] 3.26 10*6/uL Low 4.20-6.00 [facility] Comment on above: Order Comment: Speci men Type: BLOOD SPECIMENOrdering Facility: [facility] Address: [address] [place] [address] Performed By: #### 5 7021-8 ####[facility] LABORATORYCLIA [id number] [address] WBC (Bld) [#/Vol] 10.14 10*3/uL Normal 3.70-11.00 [facility] Comment on above: Order Comment: Speci men Type: BLOOD SPECIMENOrdering Facility: [facility] Address: [address] [place] [address] Performed By: #### 5 7021-8 ####[facility] LABORATORYCLIA [id number] [address] [place] BRAIN WO IVCONon 08-08-19 CT BRAIN WO IVCON Normal [facility] HEPATIC FUNCTION PNLon 08-07 Albumin [Mass/Vol] 3.6 g/dL Low 3.9-4.9 [facility] Comment on above: Order Comment: Speci men Type: BLOOD SPECIMENOrdering Facility: [facility] Address: [address] [place] [address] Performed By: #### 2 4321-2, 2777-1, , HFP ####[facility] LABORATORYCLIA [id number] [address] STATES [facility] ALP [Catalytic activity/Vol] 124 U/L High 38-113 [facility] Comment on above: Order Comment: Speci men Type: BLOOD SPECIMENOrdering Facility: [facility] Address: [address] [place] [address] Performed By: #### 2 4321-2, 2777-1, , HFP ####[facility] LABORATORYCLIA [id number] [address] ALT With P-5'-P [Catalytic activity/Vol] 29 U/L Normal 10-54 [facility] Comment on above: Order Comment: Speci men Type: BLOOD SPECIMENOrdering Facility: [facility] Address: [address] [place] [address] Performed By: #### 2 4321-2, 2776-05, , HFP ####[facility] LABORATORYCLIA [id number] [address] [facility] AST With P-5'-P [Catalytic activity/Vol] 18 U/L Normal 14-40 [facility] Comment on above: Order Comment: Speci men Type: BLOOD SPECIMENOrdering Facility: [facility] Address: [address] [place] [address] Performed By: #### 2 4321-2, 2776-05, , HFP ####[facility] LABORATORYCLIA [id number] [address] [place] Bilirubin [Mass/Vol] 0.3 mg/dL Normal 0.2-1.3 [facility] Comment on above: Order Comment: Speci men Type: BLOOD SPECIMENOrdering Facility: [facility] Address: [address] [place] [address] Performed By: #### 2 4321-2, 2776-05, , HFP ####[facility] LABORATORYCLIA [id number] [address] [place] [facility] Bilirubin.conjugated [Mass/Vol] mg/dL Normal <0.2 [facility] Comment on above: Order Comment: Speci men Type: BLOOD SPECIMENOrdering Facility: [facility] Address: [address] [place] [address] Performed By: #### 2 4321-2, 2776-05, , HFP ####[facility] LABORATORYCLIA [id number] [address] [place] Protein [Mass/Vol] 6.4 g/dL Normal 6.3-8.0 [facility] Comment on above: Order Comment: Speci men Type: BLOOD SPECIMENOrdering Facility: [facility] Address: [address] [place] [address] Performed By: #### 2 4321-2, 2776-05, , HFP ####[facility]ORATORYCLIA [id number] [place], [place] [id number] [place] [address] [place] Magnesium SerPl-mCncon 08-07 Magnesium [Mass/Vol] 2.3 mg/dL Normal 1.7-2.3 [facility] Comment on above: Order Comment: Speci men Type: BLOOD SPECIMENOrdering Facility: [facility] Address: [address] [place] [address] Performed By: #### 2 4321-2, 277-, , [facility] ####[facility] LABORATORYCLIA [id number] [address] [place] NURSING PROGon 08-07-2021 NURSING PROG Normal [facility] Phosphate SerPl-ncon 08-07 Phosphate [Mass/Vol] 3.5 mg/dL Normal 2.7-4.8 [facility] Comment on above: Order Comment: Speci men Type: BLOOD SPECIMENOrdering Facility: [facility] Address: [address] [place] [address] Performed By: #### 2 4321-2, 2776-05, , HFP ####[facility] LABORATORYCLIA [id number] [address] [place] ANES POSTPROC EVALon 022 ANES POSTPROC EVAL Normal [facility] Basic metabolic 2000 panelon 08-06-2021 Anion gap [Moles/Vol] 11 mmol/L Normal 9-18 [facility] Comment on above: Order Comment: Speci men Type: BLOOD SPECIMENOrdering Facility: [facility] Address: [address] [place] [address] Performed By: #### 2 4321-2, 27711-04, ####[facility] LABORATORYCLIA [id number] [address] [place] Calcium [Mass/Vol] 8.2 mg/dL Low 8.5-10.2 [facility] Comment on above: Order Comment: Speci men Type: BLOOD SPECIMENOrdering Facility: [facility] Address: [address] [place], [place] [address] Performed By: #### 2 4321-2, 2776-05, ####[facility] LABORATORYCLIA [id number] [place] [address] [place] Chloride [Moles/Vol] 100 mmol/L Normal 97-105 [facility] Comment on above: Order Comment: Speci men Type: BLOOD SPECIMENOrdering Facility: [facility] Address: [address] [place] [address] Performed By: #### 2 4321-2, 2776-05, ####[facility] LABORATORYCLIA [id number] [address] [place] CO2 [Moles/Vol] 23 mmol/L Normal 22-30 [facility] Comment on above: Order Comment: Speci men Type: BLOOD SPECIMENOrdering Facility: [facility] Address: [address] [place] [address] Performed By: #### 2 4321-2, 2776-05, ####[facility] LABORATORYCLIA [id number] [address] [place] Creatinine [Mass/Vol] 0.55 mg/dL Low 0.73-1.22 [facility] Comment on above: Order Comment: Speci men Type: BLOOD SPECIMENOrdering Facility: [facility] Address: [address] [place] [address] Performed By: #### 2 4321-2, 2776-05, ####[facility] LABORATORYCLIA [id number] [address] OF [facility] ESTIMATED GLOMERULAR FILTRATION RATE 107 mL/min/1.73m??? Normal >=60 [facility] Comment on above: Order Comment: Speci men Type: BLOOD SPECIMENOrdering Facility: [facility] Address: [address] [place] [address] Result Comment: Luzmaria mated Glomerular Filtration Rate (eGFR) is calculated using the 2020 CKD-EPI creatinine equation. This equation utilizes serum creatinine, sex, and age as parameters. The creatinine assay has traceable calibration to isotope dilution-mass spectrometry. Refer to KDIGO guidelines for clinical interpretation. In patients with unstable renal function, e.g. those with acute kidney injury, the eGFR may not accurately reflect actual GFR. Performed By: #### 2 4321-2, 2777-, ####[facility] LABORATORYCLIA [id number] [place] [address] [place] Glucose [Mass/Vol] 275 mg/dL High 74-99 [facility] Comment on above: Order Comment: Shira feldman Type: BLOOD SPECIMENOrdering Facility: [facility] Address: [address] [place], [place] [address] Result Comment: The [place] Diabetes Association (ADA) provides guidance for cutoff values for fasting glucose and random glucose. The ADA defines fasting as no caloric intake for at least 8 hours. Fasting plasma glucose results between 100 to 125 mg/dL indicate increased risk for diabetes (prediabetes).Fasting plasma glucose results greater than or equal to 126 mg/dL meet the criteria for diagnosis of diabetes. In the absence of unequivocal hyperglycemia, results should be confirmed by repeat testing. In a patient with classic symptoms of hyperglycemia or hyperglycemic crisis, random plasma glucose results greater than or equal to 200 mg/dL meet the criteria for diagnosis of diabetes.Reference: Standards of Medical Care in Diabetes 2016, [place] [employer]. Diabetes Care. 2016.39(Suppl 1). Performed By: #### 2 4321-2, 2776-05, ####[facility] LABORATORYCLIA [id number] [place] [address] [place] Potassium [Moles/Vol] 3.6 mmol/L Low 3.7-5.1 [facility] Comment on above: Order Comment: Shira feldman Type: BLOOD SPECIMENOrdering Facility: [facility] Address: [address] [place] [address] Performed By: #### 2 4321-2, 2777, ####[facility] LABORATORYCLIA [id number] [place] [address] [place] Sodium [Moles/Vol] 134 mmol/L Low 136-144 [facility] Comment on above: Order Comment: Speci men Type: BLOOD SPECIMENOrdering Facility: [facility] Address: [address] [place] [address] Performed By: #### 2 4321-2, 2777-1, 20366-9 ####[facility] LABORATORYCLIA [id number] [place] [address] [place] Urea nitrogen [Mass/Vol] 29 mg/dL High 9-24 [facility] Comment on above: Order Comment: Speci men Type: BLOOD SPECIMENOrdering Facility: [facility] Address: [address] [place] [address] Performed By: #### 2 4321-2, 2777-, ####[facility] LABORATORYCLIA [id number] [address] STATES OF [facility] CBC W Auto Differential pane l (Bld)on 08-06-2021 Basophils (Bld) [#/Vol] 0.03 10*3/uL Normal <0.11 [facility] Comment on above: Order Comment: Speci men Type: BLOOD SPECIMENOrdering Facility: [facility] Address: [address] [place] [address] Performed By: #### 5 7021-8 ####[facility] LABORATORYCLIA [id number] [address] [place] Basophils/100 WBC (Bld) 0.3 % Normal [facility] Comment on above: Order Comment: Speci men Type: BLOOD SPECIMENOrdering Facility: [facility] Address: [address] [place] [address] Performed By: #### 5 7021-8 ####[facility] LABORATORYCLIA [id number] [address] STATES [facility] Differential cell count method Nom (Bld) Auto Normal [facility] Comment on above: Order Comment: Speci men Type: BLOOD SPECIMENOrdering Facility: [facility] Address: [address] [place] [address] Performed By: #### 5 7021-8 ####[facility] LABORATORYCLIA [id number] [address] [place] Eosinophils (Bld) [#/Vol] 0.18 10*3/uL Normal <0.46 [facility] Comment on above: Order Comment: Speci men Type: BLOOD SPECIMENOrdering Facility: [facility] Address: [address] [place] [place] [address] Performed By: #### 5 7021-8 ####[facility] LABORATORYCLIA [id number] [address] Eosinophils/100 WBC (Bld) 1.6 % Normal [facility] Comment on above: Order Comment: Speci men Type: BLOOD SPECIMENOrdering Facility: [facility] Address: [address] [place] [address] Performed By: #### 5 7021-8 ####[facility] LABORATORYCLIA [id number] [address] Erythrocyte distribution width (RBC) [Ratio] 17.9 % High 11.5-15.0 [facility] Comment on above: Order Comment: Speci men Type: BLOOD SPECIMENOrdering Facility: [facility] Address: [address] [place] [address] Performed By: #### 5 7021-8 ####[facility]ORATORYCLIA [id number] [address] [place] Hematocrit (Bld) [Volume fraction] 27.6 % Low 39.0-51.0 [facility] Comment on above: Order Comment: Speci men Type: BLOOD SPECIMENOrdering Facility: [facility] Address: [address] [place] [address] Performed By: #### 5 7021-8 ####[facility] LABORATORYCLIA [id number] [address] [place] Hemoglobin (Bld) [Mass/Vol] 8.5 g/dL Low 13.0-17.0 [facility] Comment on above: Order Comment: Speci men Type: BLOOD SPECIMENOrdering Facility: [facility] Address: [address] [place] [address] Performed By: #### 5 7021-8 ####[facility]ORATORYCLIA [id number] [address] IMMATURE GRAN % 0.6 % Normal [facility] Comment on above: Order Comment: Speci men Type: BLOOD SPECIMENOrdering Facility: [facility] Address: [address] [place] [address] Performed By: #### 5 7021-8 ####[facility] LABORATORYCLIA [id number] [address] IMMATURE GRAN ABS 0.07 k/uL Normal <0.10 [facility] Comment on above: Order Comment: Speci men Type: BLOOD SPECIMENOrdering Facility: [facility] Address: [address] [place] [address] Performed By: #### 5 7021-8 ####[facility] LABORATORYCLIA [id number] [address] Lymphocytes (Bld) [#/Vol] 1.81 10*3/uL Normal 1.00-4.00 [facility] Comment on above: Order Comment: Speci men Type: BLOOD SPECIMENOrdering Facility: [facility] Address: [address] [place] [address] Performed By: #### 5 7021-8 ####[facility]ORATORYCLIA [id number] [address] Lymphocytes/100 WBC (Bld) 15.7 % Normal [facility] Comment on above: Order Comment: Speci men Type: BLOOD SPECIMENOrdering Facility: [facility] Address: [address] [place] [address] Performed By: #### 5 7021-8 ####[facility] LABORATORYCLIA [id number] [address] [place] MCH (RBC) [Entitic mass] 28.6 pg Normal 26.0-34.0 [facility] Comment on above: Order Comment: Speci men Type: BLOOD SPECIMENOrdering Facility: [facility] Address: [address] [place] [address] Performed By: #### 5 7021-8 ####[facility] LABORATORYCLIA [id number] [address] OF [facility] MCHC (RBC) [Mass/Vol] 30.8 g/dL Normal 30.5-36.0 [facility] Comment on above: Order Comment: Speci men Type: BLOOD SPECIMENOrdering Facility: [facility] Address: [address] [place] [address] Performed By: #### 5 7021-8 ####[facility] LABORATORYCLIA [id number] [address] MCV (RBC) [Entitic vol] 92.9 fL Normal 80.0-100.0 [facility] Comment on above: Order Comment: Speci men Type: BLOOD SPECIMENOrdering Facility: [facility] Address: [address] [place] [address] Performed By: #### 5 7021-8 ####[facility] LABORATORYCLIA [id number] [address] Monocytes (Bld) [#/Vol] 0.63 10*3/uL Normal <0.87 [facility] Comment on above: Order Comment: Speci men Type: BLOOD SPECIMENOrdering Facility: [facility] Address: [address] [place] [address] Performed By: #### 5 7021-8 ####[facility]ORATORYCLIA [id number] [address] Monocytes/100 WBC (Bld) 5.5 % Normal [facility] Comment on above: Order Comment: Speci men Type: BLOOD SPECIMENOrdering Facility: [facility] Address: [address] [place] [address] Performed By: #### 5 7021-8 ####[facility]ORATORYCLIA [id number] [address] [place] Neutrophils (Bld) [#/Vol] 8.78 10*3/uL High 1.45-7.50 [facility] Comment on above: Order Comment: Speci men Type: BLOOD SPECIMENOrdering Facility: [facility] Address: [address] [place] [address] Performed By: #### 5 7021-8 ####[facility]ORATORYCLIA [id number] [address] STATES [facility] Neutrophils/100 WBC (Bld) 76.3 % Normal [facility] Comment on above: Order Comment: Speci men Type: BLOOD SPECIMENOrdering Facility: [facility] Address: [address] [place] [address] Performed By: #### 5 7021-8 ####[facility]ORATORYCLIA [id number] [address] Nucleated RBC (Bld) [#/Vol] 10*3/uL Normal <0.01 [facility] Comment on above: Order Comment: Speci men Type: BLOOD SPECIMENOrdering Facility: [facility] Address: [address] [place] [address] Performed By: #### 5 7021-8 ####[facility]ORATORYCLIA [id number] [address] Nucleated RBC/100 WBC (Bld) [Ratio] 0.0 /100 WBC Normal [facility] Comment on above: Order Comment: Speci men Type: BLOOD SPECIMENOrdering Facility: [facility] Address: [address] [place] [address] Performed By: #### 5 7021-8 ####[facility] LABORATORYCLIA [id number] [address] [place] Platelet mean volume (Bld) [Entitic vol] 9.9 fL Normal 9.0-12.7 [facility] Comment on above: Order Comment: Speci men Type: BLOOD SPECIMENOrdering Facility: [facility] Address: [address] [place] [address] Performed By: #### 5 7021-8 ####[facility]ORATORYCLIA [id number] [address] OF [facility] Platelets (Bld) [#/Vol] 230 10*3/uL Normal 150-400 [facility] Comment on above: Order Comment: Speci men Type: BLOOD SPECIMENOrdering Facility: [facility] Address: [address] [place] [address] Performed By: #### 5 7021-8 ####[facility] LABORATORYCLIA [id number] [place] [address] [place] RBC (Bld) [#/Vol] 2.97 10*6/uL Low 4.20-6.00 [facility] Comment on above: Order Comment: Speci men Type: BLOOD SPECIMENOrdering Facility: [facility] Address: [address] [place] [address] Performed By: #### 5 7021-8 ####[facility]ORATORYCLIA [id number] [address] [place] WBC (Bld) [#/Vol] 11.50 10*3/uL High 3.70-11.00 [facility] Comment on above: Order Comment: Speci men Type: BLOOD SPECIMENOrdering Facility: [facility] Address: [address] [place] [address] Performed By: #### 5 7021-8 ####[facility] LABORATORYCLIA [id number] [address] OF [facility] CONSULT PROGon 08-06-2021 CONSULT PROG Normal [facility] Magnesium SerPl-mCncon 08-06 Magnesium [Mass/Vol] 1.9 mg/dL Normal 1.7-2.3 [facility] Comment on above: Order Comment: Speci men Type: BLOOD SPECIMENOrdering Facility: [facility] Address: [address] [place], [place] [phone] Performed By: #### 2 4321-2, 2777-1, ####[facility] LABORATORYCLIA [id number] [place] [id number] [place] NURSING PROGon 08-06-2021 NURSING PROG Normal [facility] OPERATIVE NOon 08-06-2021 OPERATIVE NO Normal [facility] Phosphate SerPl-mCncon 08-06 Phosphate [Mass/Vol] 4.2 mg/dL Normal 2.7-4.8 [facility] Comment on above: Order Comment: Speci men Type: BLOOD SPECIMENOrdering Facility: [facility] Address: [address] [place] [address] Performed By: #### 2 4321-2, 2777-1, ####[facility] LABORATORYCLIA [id number] [address] ALLIED HEALTHon 08-05-2021 ALLIED HEALTH Normal [facility] ALLIED HEALTH Normal [facility] ANES PRE-OPon 08-05-2021 ANES PRE-OP Normal [facility] BRIEF OP NOTon 08-05-2021 BRIEF OP NOT Normal [facility] Bacteria Spec Resp Culton Bacteria identified Respiratory culture Nom (Unsp spec) CULTURE, RESPIRATORY: Few Normal respiratory chris present ORGANISM ID: 1 Few Proteus species Insignificant colony count. No further workup. GRAM STAIN: No organisms seen Few Polymorphonuclear leukocytes Few Epithelial cells Abnormal [facility] Comment on above: Performed By: #### 3 2355-0 ####[facility] LABORATORYCLIA [id number] [place] [id number] [place] Bacteria Ur Culton Bacteria identified Cx Nom (U) CULTURE, URINE: No growth (<1,000 CFU/ml) Normal [facility] Comment on above: Performed By: #### 6 30-4 ####[facility] LABORATORYCLIA [id number] [place] [id number] [place] Basic metabolic 2000 panelon 08-05-2021 Anion gap [Moles/Vol] 7 mmol/L Low 9-18 [facility] Comment on above: Order Comment: Speci men Type: BLOOD SPECIMENOrdering Facility: [facility] Address: [address] [place] [address] Performed By: #### 2 4321-2 ####[facility] LABORATORYCLIA [id number] [place] [address] [place] Calcium [Mass/Vol] 9.5 mg/dL Normal 8.5-10.2 [facility] Comment on above: Order Comment: Speci men Type: BLOOD SPECIMENOrdering Facility: [facility] Address: [address] [place] [address] Performed By: #### 2 4321-2 ####[facility] LABORATORYCLIA [id number] [place] [address] [place] Chloride [Moles/Vol] 97 mmol/L Normal 97-105 [facility] Comment on above: Order Comment: Speci men Type: BLOOD SPECIMENOrdering Facility: [facility] Address: [address] [place] [address] Performed By: #### 2 4321-2 ####[facility] LABORATORYCLIA [id number] [place] [address] [place] CO2 [Moles/Vol] 30 mmol/L Normal 22-30 [facility] Comment on above: Order Comment: Speci men Type: BLOOD SPECIMENOrdering Facility: [facility] Address: [address] [place] [address] Performed By: #### 2 4321-2 ####[facility] LABORATORYCLIA [id number] [place] [address] [place] Creatinine [Mass/Vol] 0.61 mg/dL Low 0.73-1.22 [facility] Comment on above: Order Comment: Speci men Type: BLOOD SPECIMENOrdering Facility: [facility] Address: [address] [place] [address] Performed By: #### 2 4321-2 ####[facility]PITALIA [id number] [place] [address] [place] ESTIMATED GLOMERULAR FILTRATION RATE 104 mL/min/1.73m??? Normal >=60 [facility] Comment on above: Order Comment: Shira feldman Type: BLOOD SPECIMENOrdering Facility: [facility] Address: [address] [place] [address] Result Comment: Luzmaria mated Glomerular Filtration Rate (eGFR) is calculated using the 2020 CKD-EPI creatinine equation. This equation utilizes serum creatinine, sex, and age as parameters. The creatinine assay has traceable calibration to isotope dilution-mass spectrometry. Refer to KDIGO guidelines for clinical interpretation. In patients with unstable renal function, e.g. those with acute kidney injury, the eGFR may not accurately reflect actual GFR. Performed By: #### 2 4321-2 ####[facility] HOSPITALIA [id number] [place] [address] [place] Glucose [Mass/Vol] 124 mg/dL High 74-99 [facility] Comment on above: Order Comment: Shira feldman Type: BLOOD SPECIMENOrdering Facility: [facility] Address: [address] [place] [address] Result Comment: The [place] Diabetes Association (ADA) provides guidance for cutoff values for fasting glucose and random glucose. The ADA defines fasting as no caloric intake for at least 8 hours. Fasting plasma glucose results between 100 to 125 mg/dL indicate increased risk for diabetes (prediabetes).Fasting plasma glucose results greater than or equal to 126 mg/dL meet the criteria for diagnosis of diabetes. In the absence of unequivocal hyperglycemia, results should be confirmed by repeat testing. In a patient with classic symptoms of hyperglycemia or hyperglycemic crisis, random plasma glucose results greater than or equal to 200 mg/dL meet the criteria for diagnosis of diabetes.Reference: Standards of Medical Care in Diabetes 2016, [place] [employer]. Diabetes Care. 2016.39(Suppl 1). Performed By: #### 2 4321-2 ####[facility] LABORATORYCLIA [id number] [place] [address] [place] Potassium [Moles/Vol] 4.9 mmol/L Normal 3.7-5.1 [facility] Comment on above: Order Comment: Speci men Type: BLOOD SPECIMENOrdering Facility: [facility] Address: [address] [place] [address] Performed By: #### 2 4321-2 ####[facility] LABORATORYCLIA [id number] [place] [address] [place] Sodium [Moles/Vol] 134 mmol/L Low 136-144 [facility] Comment on above: Order Comment: Speci men Type: BLOOD SPECIMENOrdering Facility: [facility] Address: [address] [place] [address] Performed By: #### 2 4321-2 ####[facility] LABORATORYCLIA [id number] [place] [address] [place] Urea nitrogen [Mass/Vol] 40 mg/dL High 9-24 [facility] Comment on above: Order Comment: Speci men Type: BLOOD SPECIMENOrdering Facility: [facility] Address: [address] [place] [address] Performed By: #### 2 4321-2 ####[facility] LABORATORYCLIA [id number] [address] [place] CBC W Auto Differential pane l (Bld)on 08-05-2021 Basophils (Bld) [#/Vol] 0.04 10*3/uL Normal <0.11 [facility] Comment on above: Order Comment: Speci men Type: BLOOD SPECIMENOrdering Facility: [facility] Address: [address] [place] [address] Performed By: #### 5 7021-8 ####[facility] LABORATORYCLIA [id number] [address] [place] Basophils/100 WBC (Bld) 0.3 % Normal [facility] Comment on above: Order Comment: Speci men Type: BLOOD SPECIMENOrdering Facility: [facility] Address: [address] [place] [address] Performed By: #### 5 7021-8 ####[facility]ORATORYCLIA [id number] [address] Differential cell count method Nom (Bld) Auto Normal [facility] Comment on above: Order Comment: Speci men Type: BLOOD SPECIMENOrdering Facility: [facility] Address: [address] [place] [address] Performed By: #### 5 7021-8 ####[facility] LABORATORYCLIA [id number] [address] [place] Eosinophils (Bld) [#/Vol] 0.42 10*3/uL Normal <0.46 [facility] Comment on above: Order Comment: Speci men Type: BLOOD SPECIMENOrdering Facility: [facility] Address: [address] [place] [address] Performed By: #### 5 7021-8 ####[facility] LABORATORYCLIA [id number] [address] Eosinophils/100 WBC (Bld) 3.6 % Normal [facility] Comment on above: Order Comment: Speci men Type: BLOOD SPECIMENOrdering Facility: [facility] Address: [address] [place] [address] Performed By: #### 5 7021-8 ####[facility] LABORATORYCLIA [id number] [address] Erythrocyte distribution width (RBC) [Ratio] 17.9 % High 11.5-15.0 [facility] Comment on above: Order Comment: Speci men Type: BLOOD SPECIMENOrdering Facility: [facility] Address: [address] [place] [address] Performed By: #### 5 7021-8 ####[facility]ORATORYCLIA [id number] [address] Hematocrit (Bld) [Volume fraction] 30.8 % Low 39.0-51.0 [facility] Comment on above: Order Comment: Speci men Type: BLOOD SPECIMENOrdering Facility: [facility] Address: [address] [place] [address] Performed By: #### 5 7021-8 ####[facility] LABORATORYCLIA [id number] [address] [place] Hemoglobin (Bld) [Mass/Vol] 9.6 g/dL Low 13.0-17.0 [facility] Comment on above: Order Comment: Speci men Type: BLOOD SPECIMENOrdering Facility: [facility] Address: [address] [place] [address] Performed By: #### 5 7021-8 ####[facility] LABORATORYCLIA [id number] [address] OF [facility] IMMATURE GRAN % 0.5 % Normal [facility] Comment on above: Order Comment: Speci men Type: BLOOD SPECIMENOrdering Facility: [facility] Address: [address] [place] [address] Performed By: #### 5 7021-8 ####[facility] LABORATORYCLIA [id number] [address] IMMATURE GRAN ABS 0.06 k/uL Normal <0.10 [facility] Comment on above: Order Comment: Speci men Type: BLOOD SPECIMENOrdering Facility: [facility] Address: [address] [place] [address] Performed By: #### 5 7021-8 ####[facility] LABORATORYCLIA [id number] [address] [place] Lymphocytes (Bld) [#/Vol] 2.17 10*3/uL Normal 1.00-4.00 [facility] Comment on above: Order Comment: Speci men Type: BLOOD SPECIMENOrdering Facility: [facility] Address: [address] [place] [address] Performed By: #### 5 7021-8 ####[facility] LABORATORYCLIA [id number] [address] Lymphocytes/100 WBC (Bld) 18.7 % Normal [facility] Comment on above: Order Comment: Speci men Type: BLOOD SPECIMENOrdering Facility: [facility] Address: [address] [place] [address] Performed By: #### 5 7021-8 ####[facility] LABORATORYCLIA [id number] [address] MCH (RBC) [Entitic mass] 28.9 pg Normal 26.0-34.0 [facility] Comment on above: Order Comment: Speci men Type: BLOOD SPECIMENOrdering Facility: [facility] Address: [address] [place] [address] Performed By: #### 5 7021-8 ####[facility] LABORATORYCLIA [id number] [address] MCHC (RBC) [Mass/Vol] 31.2 g/dL Normal 30.5-36.0 [facility] Comment on above: Order Comment: Speci men Type: BLOOD SPECIMENOrdering Facility: [facility] Address: [address] [place] [address] Performed By: #### 5 7021-8 ####[facility] LABORATORYCLIA [id number] [address] MCV (RBC) [Entitic vol] 92.8 fL Normal 80.0-100.0 [facility] Comment on above: Order Comment: Speci men Type: BLOOD SPECIMENOrdering Facility: [facility] Address: [address] [place] [address] Performed By: #### 5 7021-8 ####[facility]ORATORYCLIA [id number] [address] Monocytes (Bld) [#/Vol] 0.71 10*3/uL Normal <0.87 [facility] Comment on above: Order Comment: Speci men Type: BLOOD SPECIMENOrdering Facility: [facility] Address: [address] [place] [address] Performed By: #### 5 7021-8 ####[facility] LABORATORYCLIA [id number] [address] Monocytes/100 WBC (Bld) 6.1 % Normal [facility] Comment on above: Order Comment: Speci men Type: BLOOD SPECIMENOrdering Facility: [facility] Address: [address] [place] [address] Performed By: #### 5 7021-8 ####[facility]ORYCLIA [id number] [address] [place] Neutrophils (Bld) [#/Vol] 8.19 10*3/uL High 1.45-7.50 [facility] Comment on above: Order Comment: Speci men Type: BLOOD SPECIMENOrdering Facility: [facility] Address: [address] [place] [address] Performed By: #### 5 7021-8 ####[facility]ORATORYCLIA [id number] [address] [place] Neutrophils/100 WBC (Bld) 70.8 % Normal [facility] Comment on above: Order Comment: Speci men Type: BLOOD SPECIMENOrdering Facility: [facility] Address: [address] [place] [address] Performed By: #### 5 7021-8 ####[facility]ORATORYCLIA [id number] [address] [place] Nucleated RBC (Bld) [#/Vol] 10*3/uL Normal <0.01 [facility] Comment on above: Order Comment: Speci men Type: BLOOD SPECIMENOrdering Facility: [facility] Address: [address] [place] [address] Performed By: #### 5 7021-8 ####[facility]ORATORYCLIA [id number] [address] [place] Nucleated RBC/100 WBC (Bld) [Ratio] 0.0 /100 WBC Normal [facility] Comment on above: Order Comment: Speci men Type: BLOOD SPECIMENOrdering Facility: [facility] Address: [address] [place] [address] Performed By: #### 5 7021-8 ####[facility]ORYCLIA [id number] [address] OF [facility] Platelet mean volume (Bld) [Entitic vol] 9.6 fL Normal 9.0-12.7 [facility] Comment on above: Order Comment: Speci men Type: BLOOD SPECIMENOrdering Facility: [facility] Address: [address] [place] [address] Performed By: #### 5 7021-8 ####[facility]ORATORYCLIA [id number] [address] [place] Platelets (Bld) [#/Vol] 339 10*3/uL Normal 150-400 [facility] Comment on above: Order Comment: Speci men Type: BLOOD SPECIMENOrdering Facility: [facility] Address: [address] [place] [address] Performed By: #### 5 7021-8 ####[facility] LABORATORYCLIA [id number] [place] [address] [place] RBC (Bld) [#/Vol] 3.32 10*6/uL Low 4.20-6.00 [facility] Comment on above: Order Comment: Speci men Type: BLOOD SPECIMENOrdering Facility: [facility] Address: [address] [place] [address] Performed By: #### 5 7021-8 ####[facility]ORATORYCLIA [id number] [place] [address] [place] WBC (Bld) [#/Vol] 11.59 10*3/uL High 3.70-11.00 [facility] Comment on above: Order Comment: Speci men Type: BLOOD SPECIMENOrdering Facility: [facility] Address: [address] [place] [address] Performed By: #### 5 7021-8 ####[facility] LABORATORYCLIA [id number] [address] OF [place] CT BRAIN WO IVCONon 08-06-19 CT BRAIN WO IVCON Normal [facility] Magnesium SerPl-mCncon 08-05 Magnesium [Mass/Vol] 2.2 mg/dL Normal 1.7-2.3 [facility] Comment on above: Order Comment: Speci men Type: BLOOD SPECIMENOrdering Facility: [facility] Address: [address] [place] [address] Performed By: #### 1 9123-9, 2777-1 ####[facility] LABORATORYCLIA [id number] [address] OF [facility] NURSING PROGon 08-05-2021 NURSING PROG Normal [facility] NURSING PROG Normal [facility] NUTRITIONon 08-05-2021 NUTRITION Normal [facility] OPERATIVE NOon 08-05-2021 OPERATIVE NO Normal [facility] Phosphate SerPl-mCncon 08-05 Phosphate [Mass/Vol] 4.6 mg/dL Normal 2.7-4.8 [facility] Comment on above: Order Comment: Speci men Type: BLOOD SPECIMENOrdering Facility: [facility] Address: [address] [place] [address] Performed By: #### 1 9123-9, 27711-04 ####[facility]ORATORYCLIA [id number] [address] THERAPY NTon 08-05-2021 THERAPY NT Normal [facility] THERAPY NT Normal [facility] Urinalysis complete panel (U )on 08-05-2021 Bilirubin Ql (U) Negative Normal Negative [facility] Comment on above: Order Comment: Speci men Type: URINE SPECIMENOrdering Facility: [facility] Address: [address] [place] [address] Performed By: #### 2 4356-8 ####[facility]ORATORYCLIA [id number] [address] [place] Clarity (Unsp spec) Clear Normal Clear [facility] Comment on above: Order Comment: Speci men Type: URINE SPECIMENOrdering Facility: [facility] Address: [address] [place] [address] Performed By: #### 2 4356-8 ####[facility]ORATORYCLIA [id number] [address] Color (U) Light Yellow Normal yellow [facility] Comment on above: Order Comment: Speci men Type: URINE SPECIMENOrdering Facility: [facility] Address: [address] [place] [address] Performed By: #### 2 4356-8 ####[facility]ORATORYCLIA [id number] [address] Epithelial cells LM.HPF (Urine sed) [#/Area] Few Abnormal None Seen [facility] Comment on above: Order Comment: Speci men Type: URINE SPECIMENOrdering Facility: [facility] Address: [address] [place] [address] Performed By: #### 2 4356-8 ####[facility]ORATORYCLIA [id number] [address] Glucose Test strip (U) [Mass/Vol] Negative Normal Negative [facility] Comment on above: Order Comment: Speci men Type: URINE SPECIMENOrdering Facility: [facility] Address: [address] [place] [address] Performed By: #### 2 4356-8 ####[facility]ORATORYCLIA [id number] [address] Hemoglobin Ql (U) Negative Normal Negative [facility] Comment on above: Order Comment: Speci men Type: URINE SPECIMENOrdering Facility: [facility] Address: [address] [place] [address] Performed By: #### 2 4356-8 ####[facility]ORATORYCLIA [id number] [address] Hyaline casts (Urine sed) [#/Area] 1-3 /LPF Abnormal 0 /LPF [facility] Comment on above: Order Comment: Speci men Type: URINE SPECIMENOrdering Facility: [facility] Address: [address] [place] [address] Performed By: #### 2 4356-8 ####[facility]ATORYCLIA [id number] [address] Ketones Ql (U) Negative Normal Negative [facility] Comment on above: Order Comment: Speci men Type: URINE SPECIMENOrdering Facility: [facility] Address: [address] [place] [address] Performed By: #### 2 4356-8 ####[facility]ORYCLIA [id number] [address] Leukocyte esterase Test strip Ql (U) Negative Normal Negative [facility] Comment on above: Order Comment: Speci men Type: URINE SPECIMENOrdering Facility: [facility] Address: [address] [place] [address] Performed By: #### 2 4356-8 ####[facility]ORATORYCLIA [id number] [address] STATES [facility] Nitrite Ql (U) Negative Normal Negative [facility] Comment on above: Order Comment: Speci men Type: URINE SPECIMENOrdering Facility: [facility] Address: [address] [place] [address] Performed By: #### 2 4356-8 ####[facility]ORATORYCLIA [id number] [address] [place] pH (U) 6.0 [pH] Normal 5.0-8.0 [facility] Comment on above: Order Comment: Speci men Type: URINE SPECIMENOrdering Facility: [facility] Address: [address] [place] [address] Performed By: #### 2 4356-8 ####[facility]ATORYCLIA [id number] [address] Protein (U) [Mass/Vol] Negative Normal Negative [facility] Comment on above: Order Comment: Speci men Type: URINE SPECIMENOrdering Facility: [facility] Address: [address] [place] [address] Performed By: #### 2 4356-8 ####[facility]ORATORYCLIA [id number] [address] STATES [facility] RBC LM.HPF (Urine sed) [#/Area] 0-3 /HPF Normal 0-3 /HPF [facility] Comment on above: Order Comment: Speci men Type: URINE SPECIMENOrdering Facility: [facility] Address: [address] [place] [address] Performed By: #### 2 4356-8 ####[facility]ORATORYCLIA [id number] [address] [place] Specific gravity (U) [Rel density] 1.015 Normal 1.005-1.030 [facility] Comment on above: Order Comment: Speci men Type: URINE SPECIMENOrdering Facility: [facility] Address: [address] [place] [address] Performed By: #### 2 4356-8 ####[facility]ORATORYCLIA [id number] [address] Urobilinogen Ql (U) Normal Normal Negative [facility] Comment on above: Order Comment: Speci men Type: URINE SPECIMENOrdering Facility: [facility] Address: [address] [place] [address] Performed By: #### 2 4356-8 ####[facility]ORATORYCLIA [id number] [address] WBC LM.HPF (Urine sed) [#/Area] 0-5 /HPF Normal 0-5 /HPF [facility] Comment on above: Order Comment: Speci men Type: URINE SPECIMENOrdering Facility: [facility] Address: [address] [place] [address] Performed By: #### 2 4356-8 ####[facility]ORATORYCLIA [id number] [address] XR ABDOMEN 1V SUPINEon 08-05 XR ABDOMEN 1V SUPINE Normal [facility] XR CHEST 1V FRONTALon 2021 XR CHEST 1V FRONTAL Normal [facility] XR CHEST 1V FRONTAL Normal [facility] XR NECK SOFT TISSUE 2V AP/LA Ton 08-05-2021 XR NECK SOFT TISSUE 2V AP/LAT Normal [facility] XR SKULL 2V AP/LATon 022 XR SKULL 2V AP/LAT Normal [facility] ALLIED HEALTHon 08-04-2021 ALLIED HEALTH Normal [facility] Bacteria Bld Culton 08-05-19 22 Bacteria identified Cx Nom (Bld) CULTURE, BLOOD: No growth 5 days Normal [facility] Comment on above: Performed By: #### 6 00-7 ####[facility]ORATORYCLIA [id number] [address] Bacteria identified Cx Nom (Bld) CULTURE, BLOOD: No growth 5 days Normal [facility] Comment on above: Performed By: #### 6 00-7 ####[facility]ORATORYCLIA [id number] [address] [place] CBC W Auto Differential pane l (Bld)on 08-04-2021 Basophils (Bld) [#/Vol] 0.05 10*3/uL Normal <0.11 [facility] Comment on above: Order Comment: Speci men Type: BLOOD SPECIMENOrdering Facility: [facility] Address: [address] [place] [address] Performed By: #### 5 7021-8 ####[facility]ORATORYCLIA [id number] [address] [place] Basophils/100 WBC (Bld) 0.4 % Normal [facility] Comment on above: Order Comment: Speci men Type: BLOOD SPECIMENOrdering Facility: [facility] Address: [address] [place] [address] Performed By: #### 5 7021-8 ####[facility]ORATORYCLIA [id number] [address] [place] Differential cell count method Nom (Bld) Auto Normal [facility] Comment on above: Order Comment: Speci men Type: BLOOD SPECIMENOrdering Facility: [facility] Address: [address] [place] [address] Performed By: #### 5 7021-8 ####[facility]ORATORYCLIA [id number] [address] Eosinophils (Bld) [#/Vol] 0.21 10*3/uL Normal <0.46 [facility] Comment on above: Order Comment: Speci men Type: BLOOD SPECIMENOrdering Facility: [facility] Address: [address] [place] [address] Performed By: #### 5 7021-8 ####[facility]ORATORYCLIA [id number] [address] Eosinophils/100 WBC (Bld) 1.7 % Normal [facility] Comment on above: Order Comment: Speci men Type: BLOOD SPECIMENOrdering Facility: [facility] Address: [address] [place] [address] Performed By: #### 5 7021-8 ####[facility]ORATORYCLIA [id number] [address] Erythrocyte distribution width (RBC) [Ratio] 18.1 % High 11.5-15.0 [facility] Comment on above: Order Comment: Speci men Type: BLOOD SPECIMENOrdering Facility: [facility] Address: [address] [place] [address] Performed By: #### 5 7021-8 ####[facility]ORATORYCLIA [id number] [address] Hematocrit (Bld) [Volume fraction] 32.0 % Low 39.0-51.0 [facility] Comment on above: Order Comment: Speci men Type: BLOOD SPECIMENOrdering Facility: [facility] Address: [address] [place] [address] Performed By: #### 5 7021-8 ####[facility]ORATORYCLIA [id number] [address] Hemoglobin (Bld) [Mass/Vol] 10.0 g/dL Low 13.0-17.0 [facility] Comment on above: Order Comment: Speci men Type: BLOOD SPECIMENOrdering Facility: [facility] Address: [address] [place] [address] Performed By: #### 5 7021-8 ####[facility]ORYCLIA [id number] [address] IMMATURE GRAN % 0.6 % Normal [facility] Comment on above: Order Comment: Speci men Type: BLOOD SPECIMENOrdering Facility: [facility] Address: [address] [place] [address] Performed By: #### 5 7021-8 ####[facility]ORATORYCLIA [id number] [address] IMMATURE GRAN ABS 0.08 k/uL Normal <0.10 [facility] Comment on above: Order Comment: Speci men Type: BLOOD SPECIMENOrdering Facility: [facility] Address: [address] [place] [address] Performed By: #### 5 7021-8 ####[facility]ORATORYCLIA [id number] [address] Lymphocytes (Bld) [#/Vol] 2.55 10*3/uL Normal 1.00-4.00 [facility] Comment on above: Order Comment: Speci men Type: BLOOD SPECIMENOrdering Facility: [facility] Address: [address] [place] [address] Performed By: #### 5 7021-8 ####[facility]ORYCLIA [id number] [address] Lymphocytes/100 WBC (Bld) 20.5 % Normal [facility] Comment on above: Order Comment: Speci men Type: BLOOD SPECIMENOrdering Facility: [facility] Address: [address] [place] [address] Performed By: #### 5 7021-8 ####[facility]ORYCLIA [id number] [address] [place] MCH (RBC) [Entitic mass] 28.9 pg Normal 26.0-34.0 [facility] Comment on above: Order Comment: Speci men Type: BLOOD SPECIMENOrdering Facility: [facility] Address: [address] [place] [address] Performed By: #### 5 7021-8 ####[facility]ORATORYCLIA [id number] [address] [facility] MCHC (RBC) [Mass/Vol] 31.3 g/dL Normal 30.5-36.0 [facility] Comment on above: Order Comment: Speci men Type: BLOOD SPECIMENOrdering Facility: [facility] Address: [address] [place] [address] Performed By: #### 5 7021-8 ####[facility]ORATORYCLIA [id number] [address] MCV (RBC) [Entitic vol] 92.5 fL Normal 80.0-100.0 [facility] Comment on above: Order Comment: Speci men Type: BLOOD SPECIMENOrdering Facility: [facility] Address: [address] [place] [address] Performed By: #### 5 7021-8 ####[facility]ORATORYCLIA [id number] [address] Monocytes (Bld) [#/Vol] 0.85 10*3/uL Normal <0.87 [facility] Comment on above: Order Comment: Speci men Type: BLOOD SPECIMENOrdering Facility: [facility] Address: [address] [place] [address] Performed By: #### 5 7021-8 ####[facility]ATORYCLIA [id number] [address] Monocytes/100 WBC (Bld) 6.8 % Normal [facility] Comment on above: Order Comment: Speci men Type: BLOOD SPECIMENOrdering Facility: [facility] Address: [address] [place] [address] Performed By: #### 5 7021-8 ####[facility]ATORYCLIA [id number] [place] [address] [place] Neutrophils (Bld) [#/Vol] 8.68 10*3/uL High 1.45-7.50 [facility] Comment on above: Order Comment: Speci men Type: BLOOD SPECIMENOrdering Facility: [facility] Address: [address] [place] [address] Performed By: #### 5 7021-8 ####[facility]ORATORYCLIA [id number] [address] STATES [facility] Neutrophils/100 WBC (Bld) 70.0 % Normal [facility] Comment on above: Order Comment: Speci men Type: BLOOD SPECIMENOrdering Facility: [facility] Address: [address] [place] [address] Performed By: #### 5 7021-8 ####[facility]ORATORYCLIA [id number] [address] STATES [facility] Nucleated RBC (Bld) [#/Vol] 10*3/uL Normal <0.01 [facility] Comment on above: Order Comment: Speci men Type: BLOOD SPECIMENOrdering Facility: [facility] Address: [address] [place] [address] Performed By: #### 5 7021-8 ####[facility]ORATORYCLIA [id number] [address] [place] [facility] Nucleated RBC/100 WBC (Bld) [Ratio] 0.0 /100 WBC Normal [facility] Comment on above: Order Comment: Speci men Type: BLOOD SPECIMENOrdering Facility: [facility] Address: [address] [place] [address] Performed By: #### 5 7021-8 ####[facility]ORATORYCLIA [id number] [address] [place] Platelet mean volume (Bld) [Entitic vol] 10.0 fL Normal 9.0-12.7 [facility] Comment on above: Order Comment: Speci men Type: BLOOD SPECIMENOrdering Facility: [facility] Address: [address] [place] [address] Performed By: #### 5 7021-8 ####[facility]ORATORYCLIA [id number] [address] Platelets (Bld) [#/Vol] 393 10*3/uL Normal 150-400 [facility] Comment on above: Order Comment: Speci men Type: BLOOD SPECIMENOrdering Facility: [facility] Address: [address] [place] [address] Performed By: #### 5 7021-8 ####[facility]ORATORYCLIA [id number] [address] RBC (Bld) [#/Vol] 3.46 10*6/uL Low 4.20-6.00 [facility] Comment on above: Order Comment: Speci men Type: BLOOD SPECIMENOrdering Facility: [facility] Address: [address] [place] [address] Performed By: #### 5 7021-8 ####[facility]ORATORYCLIA [id number] [address] [facility] WBC (Bld) [#/Vol] 12.42 10*3/uL High 3.70-11.00 [facility] Comment on above: Order Comment: Speci men Type: BLOOD SPECIMENOrdering Facility: [facility] Address: [address] [place] [address] Performed By: #### 5 7021-8 ####[facility] LABORATORYCLIA [id number] [address] [place] BRAIN WO IVCONon 08-05-19 CT BRAIN WO IVCON Normal [facility] Lactate (Bld) [Moles/Vol]on 08-04-2021 Lactate [Moles/Vol] 1.4 mmol/L Normal 0.5-2.2 [facility] Comment on above: Order Comment: Speci men Type: BLOOD SPECIMENOrdering Facility: [facility] Address: [address] [place] [address] Performed By: #### 3 2693-4 ####[facility] LABORATORYCLIA [id number] [address] PROCALCITONIN (LAB)on 2021 Procalcitonin [Mass/Vol] 0.08 ng/mL Normal <0.09 [facility] Comment on above: Order Comment: Speci men Type: BLOOD SPECIMENOrdering Facility: [facility] Address: [address] [place] [address] Result Comment: For a guided interpretation of test results, please visit the Change in Procalcitonin Calculator, [email or web address]. Performed By: #### P ROCAL ####[facility] LABORATORYCLIA [id number] [address] Prealbumin [Mass/Vol]on 07-07 Prealbumin Nephelometry [Mass/Vol] 35 mg/dL Normal 17-36 [facility] Comment on above: Order Comment: Speci men Type: BLOOD SPECIMENOrdering Facility: [facility] Address: [address] [place] [address] Performed By: #### 1 4338-8 ####[facility] LABORATORYCLIA [id number] [address] OF [facility] SARS-CoV-2 RNA Resp Ql MEGAN+p robeon 08-04-2021 SARS-CoV-2 (COVID-19) RNA MEGAN+probe Ql (Resp) COVID 19 RESULT: SARS-CoV-2 (Agent of COVID-19) Not Detected by RT-PCR or equivalent method. This test has been authorized by FDA under an Emergency Use Authorization (EUA). Normal [facility] Comment on above: Performed By: #### 9 4500-6 ####[facility] LABORATORYCLIA [id number] [address] [place] TYPE AND SCREENon 08-04-2021 ABO O Normal [facility] Comment on above: Order Comment: Speci men Type: BLOOD SPECIMENOrdering Facility: [facility] Address: [address] [place] [address] Performed By: #### T SCR ####[facility] BLOOD BANKCLIA [id number] [address] HISTORICAL AB SCR STATUS Negative Normal [facility] Comment on above: Order Comment: Speci men Type: BLOOD SPECIMENOrdering Facility: [facility] Address: [address] [place] [address] Performed By: #### T SCR ####[facility] BLOOD BANKCLIA [id number] [address] Rh Nom (Bld) Positive Normal [facility] Comment on above: Order Comment: Speci men Type: BLOOD SPECIMENOrdering Facility: [facility] Address: [address] [place] [address] Performed By: #### T SCR ####[facility] BLOOD BANKCLIA [id number] [address] TYPE AND SCREEN EXPIRATION 08/07/2021 23:59 Normal [facility] Comment on above: Order Comment: Speci men Type: BLOOD SPECIMENOrdering Facility: [facility] Address: [address] [place] [address] Performed By: #### T SCR ####[facility] BLOOD BANKCLIA [id number] [address] aPTT PPPon 08-04-2021 aPTT Coag (PPP) [Time] 51.8 s High 23.0-32.4 [facility] Comment on above: Order Comment: Speci men Type: BLOOD SPECIMENOrdering Facility: [facility] Address: [address] [place] [address] Performed By: #### 1 4979-9 ####[facility] LABORATORYCLIA [id number] [address] Basic metabolic 2000 panelon 08-03-2021 Anion gap [Moles/Vol] 9 mmol/L Normal 9-18 [facility] Comment on above: Order Comment: Speci men Type: BLOOD SPECIMENOrdering Facility: [facility] Address: [address] [place] [address] Performed By: #### 2 4321-2, , 2776-05 ####[facility] LABORATORYCLIA [id number] [place] [address] [place] Calcium [Mass/Vol] 9.3 mg/dL Normal 8.5-10.2 [facility] Comment on above: Order Comment: Speci men Type: BLOOD SPECIMENOrdering Facility: [facility] Address: [address] [place] [address] Performed By: #### 2 4321-2, , 2776-05 ####[facility] LABORATORYCLIA [id number] [place] [address] [place] Chloride [Moles/Vol] 97 mmol/L Normal 97-105 [facility] Comment on above: Order Comment: Speci men Type: BLOOD SPECIMENOrdering Facility: [facility] Address: [address] [place] [address] Performed By: #### 2 4321-2, , 2776-05 ####[facility] LABORATORYCLIA [id number] [place] [address] [place] CO2 [Moles/Vol] 27 mmol/L Normal 22-30 [facility] Comment on above: Order Comment: Speci men Type: BLOOD SPECIMENOrdering Facility: [facility] Address: [address] [place] [address] Performed By: #### 2 4321-2, , 2776-05 ####[facility] LABORATORYCLIA [id number] [place] [address] [place] Creatinine [Mass/Vol] 0.63 mg/dL Low 0.73-1.22 [facility] Comment on above: Order Comment: Speci men Type: BLOOD SPECIMENOrdering Facility: [facility] Address: [address] [place] [address] Performed By: #### 2 4321-2, , 2776-05 ####[facility] LABORATORYCLIA [id number] [address] [place] ESTIMATED GLOMERULAR FILTRATION RATE 103 mL/min/1.73m??? Normal >=60 [facility] Comment on above: Order Comment: Shira feldman Type: BLOOD SPECIMENOrdering Facility: [facility] Address: [address] [place] [address] Result Comment: Luzmaria mated Glomerular Filtration Rate (eGFR) is calculated using the 2020 CKD-EPI creatinine equation. This equation utilizes serum creatinine, sex, and age as parameters. The creatinine assay has traceable calibration to isotope dilution-mass spectrometry. Refer to KDIGO guidelines for clinical interpretation. In patients with unstable renal function, e.g. those with acute kidney injury, the eGFR may not accurately reflect actual GFR. Performed By: #### 2 4321-2, , 2776-05 ####[facility] LABORATORYCLIA [id number] [place] [address] [place] Glucose [Mass/Vol] 136 mg/dL High 74-99 [facility] Comment on above: Order Comment: Shira feldman Type: BLOOD SPECIMENOrdering Facility: [facility] Address: [address] [place] [address] Result Comment: The [place] Diabetes Association (ADA) provides guidance for cutoff values for fasting glucose and random glucose. The ADA defines fasting as no caloric intake for at least 8 hours. Fasting plasma glucose results between 100 to 125 mg/dL indicate increased risk for diabetes (prediabetes).Fasting plasma glucose results greater than or equal to 126 mg/dL meet the criteria for diagnosis of diabetes. In the absence of unequivocal hyperglycemia, results should be confirmed by repeat testing. In a patient with classic symptoms of hyperglycemia or hyperglycemic crisis, random plasma glucose results greater than or equal to 200 mg/dL meet the criteria for diagnosis of diabetes.Reference: Standards of Medical Care in Diabetes 2016, [place] [employer]. Diabetes Care. 2016.39(Suppl 1). Performed By: #### 2 4321-2, , 2776-05 ####[facility] LABORATORYCLIA [id number] [place] [address] [place] Potassium [Moles/Vol] 4.1 mmol/L Normal 3.7-5.1 [facility] Comment on above: Order Comment: Speci men Type: BLOOD SPECIMENOrdering Facility: [facility] Address: [address] [place] [address] Performed By: #### 2 4321-2, , 2776-05 ####[facility] LABORATORYCLIA [id number] [address] [place] Sodium [Moles/Vol] 133 mmol/L Low 136-144 [facility] Comment on above: Order Comment: Speci men Type: BLOOD SPECIMENOrdering Facility: [facility] Address: [address] [place] [address] Performed By: #### 2 4321-2, , 2776-05 ####[facility] LABORATORYCLIA [id number] [address] STATES [place] [facility] Urea nitrogen [Mass/Vol] 40 mg/dL High 9-24 [facility] Comment on above: Order Comment: Speci men Type: BLOOD SPECIMENOrdering Facility: [facility] Address: [address] [place] [address] Performed By: #### 2 4321-2, , 2776-05 ####[facility] LABORATORYCLIA [id number] [address] [place] CASE MANAGEMon 08-03-2021 CASE MANAGEM Normal [facility] CBC W Auto Differential pane l (Bld)on 08-03-2021 Basophils (Bld) [#/Vol] 0.06 10*3/uL Normal <0.11 [facility] Comment on above: Order Comment: Speci men Type: BLOOD SPECIMENOrdering Facility: [facility] Address: [address] [place] [address] Performed By: #### 5 7021-8 ####[facility]ORATORYCLIA [id number] [address] [place] Basophils/100 WBC (Bld) 0.5 % Normal [facility] Comment on above: Order Comment: Speci men Type: BLOOD SPECIMENOrdering Facility: [facility] Address: [address] [place] [address] Performed By: #### 5 7021-8 ####[facility] LABORATORYCLIA [id number] [address] [place] Differential cell count method Nom (Bld) Auto Normal [facility] Comment on above: Order Comment: Speci men Type: BLOOD SPECIMENOrdering Facility: [facility] Address: [address] [place] [address] Performed By: #### 5 7021-8 ####[facility] LABORATORYCLIA [id number] [address] [place] Eosinophils (Bld) [#/Vol] 0.23 10*3/uL Normal <0.46 [facility] Comment on above: Order Comment: Speci men Type: BLOOD SPECIMENOrdering Facility: [facility] Address: [address] [place] [address] Performed By: #### 5 7021-8 ####[facility] LABORATORYCLIA [id number] [address] Eosinophils/100 WBC (Bld) 1.8 % Normal [facility] Comment on above: Order Comment: Speci men Type: BLOOD SPECIMENOrdering Facility: [facility] Address: [address] [place] [address] Performed By: #### 5 7021-8 ####[facility] LABORATORYCLIA [id number] [address] [place] Erythrocyte distribution width (RBC) [Ratio] 17.6 % High 11.5-15.0 [facility] Comment on above: Order Comment: Speci men Type: BLOOD SPECIMENOrdering Facility: [facility] Address: [address] [place] [address] Performed By: #### 5 7021-8 ####[facility] LABORATORYCLIA [id number] [address] Hematocrit (Bld) [Volume fraction] 30.7 % Low 39.0-51.0 [facility] Comment on above: Order Comment: Speci men Type: BLOOD SPECIMENOrdering Facility: [facility] Address: [address] [place] [address] Performed By: #### 5 7021-8 ####[facility] LABORATORYCLIA [id number] [address] Hemoglobin (Bld) [Mass/Vol] 9.3 g/dL Low 13.0-17.0 [facility] Comment on above: Order Comment: Speci men Type: BLOOD SPECIMENOrdering Facility: [facility] Address: [address] [place] [address] Performed By: #### 5 7021-8 ####[facility] LABORATORYCLIA [id number] [address] IMMATURE GRAN % 0.6 % Normal [facility] Comment on above: Order Comment: Speci men Type: BLOOD SPECIMENOrdering Facility: [facility] Address: [address] [place] [address] Performed By: #### 5 7021-8 ####[facility] LABORATORYCLIA [id number] [address] IMMATURE GRAN ABS 0.08 k/uL Normal <0.10 [facility] Comment on above: Order Comment: Speci men Type: BLOOD SPECIMENOrdering Facility: [facility] Address: [address] [place] [address] Performed By: #### 5 7021-8 ####[facility] LABORATORYCLIA [id number] [address] Lymphocytes (Bld) [#/Vol] 2.45 10*3/uL Normal 1.00-4.00 [facility] Comment on above: Order Comment: Speci men Type: BLOOD SPECIMENOrdering Facility: [facility] Address: [address] [place] [address] Performed By: #### 5 7021-8 ####[facility] LABORATORYCLIA [id number] [address] Lymphocytes/100 WBC (Bld) 19.7 % Normal [facility] Comment on above: Order Comment: Speci men Type: BLOOD SPECIMENOrdering Facility: [facility] Address: [address] [place] [address] Performed By: #### 5 7021-8 ####[facility] LABORATORYCLIA [id number] [address] MCH (RBC) [Entitic mass] 28.2 pg Normal 26.0-34.0 [facility] Comment on above: Order Comment: Speci men Type: BLOOD SPECIMENOrdering Facility: [facility] Address: [address] [place] [address] Performed By: #### 5 7021-8 ####[facility] LABORATORYCLIA [id number] [address] STATES [facility] MCHC (RBC) [Mass/Vol] 30.3 g/dL Low 30.5-36.0 [facility] Comment on above: Order Comment: Speci men Type: BLOOD SPECIMENOrdering Facility: [facility] Address: [address] [place] [address] Performed By: #### 5 7021-8 ####[facility] LABORATORYCLIA [id number] [address] MCV (RBC) [Entitic vol] 93.0 fL Normal 80.0-100.0 [facility] Comment on above: Order Comment: Speci men Type: BLOOD SPECIMENOrdering Facility: [facility] Address: [address] [place] [address] Performed By: #### 5 7021-8 ####[facility] LABORATORYCLIA [id number] [address] Monocytes (Bld) [#/Vol] 0.72 10*3/uL Normal <0.87 [facility] Comment on above: Order Comment: Speci men Type: BLOOD SPECIMENOrdering Facility: [facility] Address: [address] [place] [address] Performed By: #### 5 7021-8 ####[facility] LABORATORYCLIA [id number] [address] [place] Monocytes/100 WBC (Bld) 5.8 % Normal [facility] Comment on above: Order Comment: Speci men Type: BLOOD SPECIMENOrdering Facility: [facility] Address: [address] [place] [address] Performed By: #### 5 7021-8 ####[facility] LABORATORYCLIA [id number] [address] [place] Neutrophils (Bld) [#/Vol] 8.92 10*3/uL High 1.45-7.50 [facility] Comment on above: Order Comment: Speci men Type: BLOOD SPECIMENOrdering Facility: [facility] Address: [address] [place] [address] Performed By: #### 5 7021-8 ####[facility] LABORATORYCLIA [id number] [address] Neutrophils/100 WBC (Bld) 71.6 % Normal [facility] Comment on above: Order Comment: Speci men Type: BLOOD SPECIMENOrdering Facility: [facility] Address: [address] [place] [place] [address] Performed By: #### 5 7021-8 ####[facility] LABORATORYCLIA [id number] [address] [place] Nucleated RBC (Bld) [#/Vol] 10*3/uL Normal <0.01 [facility] Comment on above: Order Comment: Speci men Type: BLOOD SPECIMENOrdering Facility: [facility] Address: [address] [place] [address] Performed By: #### 5 7021-8 ####[facility]ORATORYCLIA [id number] [address] [place] Nucleated RBC/100 WBC (Bld) [Ratio] 0.0 /100 WBC Normal [facility] Comment on above: Order Comment: Speci men Type: BLOOD SPECIMENOrdering Facility: [facility] Address: [address] [place] [address] Performed By: #### 5 7021-8 ####[facility] LABORATORYCLIA [id number] [address] [place] Platelet mean volume (Bld) [Entitic vol] 10.2 fL Normal 9.0-12.7 [facility] Comment on above: Order Comment: Speci men Type: BLOOD SPECIMENOrdering Facility: [facility] Address: [address] [place] [address] Performed By: #### 5 7021-8 ####[facility] LABORATORYCLIA [id number] [address] [place] Platelets (Bld) [#/Vol] 352 10*3/uL Normal 150-400 [facility] Comment on above: Order Comment: Speci men Type: BLOOD SPECIMENOrdering Facility: [facility] Address: [address] [place] [address] Performed By: #### 5 7021-8 ####[facility] LABORATORYCLIA [id number] [address] [place] RBC (Bld) [#/Vol] 3.30 10*6/uL Low 4.20-6.00 [facility] Comment on above: Order Comment: Speci men Type: BLOOD SPECIMENOrdering Facility: [facility] Address: [address] [place] [address] Performed By: #### 5 7021-8 ####[facility] LABORATORYCLIA [id number] [address] [place] WBC (Bld) [#/Vol] 12.46 10*3/uL High 3.70-11.00 [facility] Comment on above: Order Comment: Speci men Type: BLOOD SPECIMENOrdering Facility: [facility] Address: [address] [place] [address] Performed By: #### 5 7021-8 ####[facility] LABORATORYCLIA [id number] [address] CONSULT PROGon 08-03-2021 CONSULT PROG Normal [facility] Magnesium SerPl-mCncon 08-03 Magnesium [Mass/Vol] 2.2 mg/dL Normal 1.7-2.3 [facility] Comment on above: Order Comment: Speci men Type: BLOOD SPECIMENOrdering Facility: [facility] Address: [address] [place] [address] Performed By: #### 2 4321-2, , 27711-04 ####[facility] LABORATORYCLIA [id number] [address] NURSING PROGon 08-03-2021 NURSING PROG Normal [facility] Phosphate SerPl-mCncon 08-03 Phosphate [Mass/Vol] 4.2 mg/dL Normal 2.7-4.8 [facility] Comment on above: Order Comment: Speci men Type: BLOOD SPECIMENOrdering Facility: [facility] Address: [address] [place] [address] Performed By: #### 2 4321-2, , 27711-04 ####[facility] LABORATORYCLIA [id number] [address] aPTT PPPon 08-03-2021 aPTT Coag (PPP) [Time] 50.0 s High 23.0-32.4 [facility] Comment on above: Order Comment: Speci men Type: BLOOD SPECIMENOrdering Facility: [facility] Address: [address] [place] [address] Performed By: #### 1 4979-9 ####[facility] LABORATORYCLIA [id number] [address] CBC W Auto Differential pane l (Bld)on 08-02-2021 Basophils (Bld) [#/Vol] 10*3/uL Normal <0.11 [facility] Comment on above: Order Comment: Speci men Type: BLOOD SPECIMENOrdering Facility: [facility] Address: [address] [place] [address] Performed By: #### 5 7021-8 ####[facility]ORATORYCLIA [id number] [place] [address] [place] Basophils/100 WBC (Bld) 0.2 % Normal [facility] Comment on above: Order Comment: Speci men Type: BLOOD SPECIMENOrdering Facility: [facility] Address: [address] [place] [address] Performed By: #### 5 7021-8 ####[facility] LABORATORYCLIA [id number] [place] [address] [place] Differential cell count method Nom (Bld) Auto Normal [facility] Comment on above: Order Comment: Speci men Type: BLOOD SPECIMENOrdering Facility: [facility] Address: [address] [place] [address] Performed By: #### 5 7021-8 ####[facility]ORATORYCLIA [id number] [place] [address] [place] Eosinophils (Bld) [#/Vol] 10*3/uL Normal <0.46 [facility] Comment on above: Order Comment: Speci men Type: BLOOD SPECIMENOrdering Facility: [facility] Address: [address] [place] [address] Performed By: #### 5 7021-8 ####[facility] LABORATORYCLIA [id number] [address] [place] Eosinophils/100 WBC (Bld) 0.0 % Normal [facility] Comment on above: Order Comment: Speci men Type: BLOOD SPECIMENOrdering Facility: [facility] Address: [address] [place] [address] Performed By: #### 5 7021-8 ####[facility]ORATORYCLIA [id number] [address] Erythrocyte distribution width (RBC) [Ratio] 17.3 % High 11.5-15.0 [facility] Comment on above: Order Comment: Speci men Type: BLOOD SPECIMENOrdering Facility: [facility] Address: [address] [place] [address] Performed By: #### 5 7021-8 ####[facility] LABORATORYCLIA [id number] [address] Hematocrit (Bld) [Volume fraction] 30.8 % Low 39.0-51.0 [facility] Comment on above: Order Comment: Speci men Type: BLOOD SPECIMENOrdering Facility: [facility] Address: [address] [place] [address] Performed By: #### 5 7021-8 ####[facility] LABORATORYCLIA [id number] [address] STATES [facility] Hemoglobin (Bld) [Mass/Vol] 9.7 g/dL Low 13.0-17.0 [facility] Comment on above: Order Comment: Speci men Type: BLOOD SPECIMENOrdering Facility: [facility] Address: [address] [place] [address] Performed By: #### 5 7021-8 ####[facility] LABORATORYCLIA [id number] [address] IMMATURE GRAN % 0.5 % Normal [facility] Comment on above: Order Comment: Speci men Type: BLOOD SPECIMENOrdering Facility: [facility] Address: [address] [place] [address] Performed By: #### 5 7021-8 ####[facility] LABORATORYCLIA [id number] [address] IMMATURE GRAN ABS 0.07 k/uL Normal <0.10 [facility] Comment on above: Order Comment: Speci men Type: BLOOD SPECIMENOrdering Facility: [facility] Address: [address] [place] [address] Performed By: #### 5 7021-8 ####[facility] LABORATORYCLIA [id number] [address] [place] Lymphocytes (Bld) [#/Vol] 1.60 10*3/uL Normal 1.00-4.00 [facility] Comment on above: Order Comment: Speci men Type: BLOOD SPECIMENOrdering Facility: [facility] Address: [address] [place] [address] Performed By: #### 5 7021-8 ####[facility] LABORATORYCLIA [id number] [address] Lymphocytes/100 WBC (Bld) 12.1 % Normal [facility] Comment on above: Order Comment: Speci men Type: BLOOD SPECIMENOrdering Facility: [facility] Address: [address] [place] [address] Performed By: #### 5 7021-8 ####[facility] LABORATORYCLIA [id number] [address] MCH (RBC) [Entitic mass] 28.6 pg Normal 26.0-34.0 [facility] Comment on above: Order Comment: Speci men Type: BLOOD SPECIMENOrdering Facility: [facility] Address: [address] [place] [address] Performed By: #### 5 7021-8 ####[facility] LABORATORYCLIA [id number] [address] [place] MCHC (RBC) [Mass/Vol] 31.5 g/dL Normal 30.5-36.0 [facility] Comment on above: Order Comment: Speci men Type: BLOOD SPECIMENOrdering Facility: [facility] Address: [address] [place] [address] Performed By: #### 5 7021-8 ####[facility] LABORATORYCLIA [id number] [address] [place] MCV (RBC) [Entitic vol] 90.9 fL Normal 80.0-100.0 [facility] Comment on above: Order Comment: Speci men Type: BLOOD SPECIMENOrdering Facility: [facility] Address: [address] [place] [address] Performed By: #### 5 7021-8 ####[facility]ORATORYCLIA [id number] [place] [address] [place] Monocytes (Bld) [#/Vol] 0.39 10*3/uL Normal <0.87 [facility] Comment on above: Order Comment: Speci men Type: BLOOD SPECIMENOrdering Facility: [facility] Address: [address] [place] [address] Performed By: #### 5 7021-8 ####[facility]ORATORYCLIA [id number] [address] [place] Monocytes/100 WBC (Bld) 3.0 % Normal [facility] Comment on above: Order Comment: Speci men Type: BLOOD SPECIMENOrdering Facility: [facility] Address: [address] [place] [address] Performed By: #### 5 7021-8 ####[facility] LABORATORYCLIA [id number] [place] [address] [place] Neutrophils (Bld) [#/Vol] 11.09 10*3/uL High 1.45-7.50 [facility] Comment on above: Order Comment: Speci men Type: BLOOD SPECIMENOrdering Facility: [facility] Address: [address] [place] [address] Performed By: #### 5 7021-8 ####[facility]ORATORYCLIA [id number] [place] [address] [place] Neutrophils/100 WBC (Bld) 84.2 % Normal [facility] Comment on above: Order Comment: Speci men Type: BLOOD SPECIMENOrdering Facility: [facility] Address: [address] [place] [address] Performed By: #### 5 7021-8 ####[facility]ORATORYCLIA [id number] [address] Nucleated RBC (Bld) [#/Vol] 10*3/uL Normal <0.01 [facility] Comment on above: Order Comment: Speci men Type: BLOOD SPECIMENOrdering Facility: [facility] Address: [address] [place] [address] Performed By: #### 5 7021-8 ####[facility] LABORATORYCLIA [id number] [address] [place] Nucleated RBC/100 WBC (Bld) [Ratio] 0.0 /100 WBC Normal [facility] Comment on above: Order Comment: Speci men Type: BLOOD SPECIMENOrdering Facility: [facility] Address: [address] [place] [address] Performed By: #### 5 7021-8 ####[facility] LABORATORYCLIA [id number] [address] [place] Platelet mean volume (Bld) [Entitic vol] 10.0 fL Normal 9.0-12.7 [facility] Comment on above: Order Comment: Speci men Type: BLOOD SPECIMENOrdering Facility: [facility] Address: [address] [place] [address] Performed By: #### 5 7021-8 ####[facility] LABORATORYCLIA [id number] [address] [place] Platelets (Bld) [#/Vol] 358 10*3/uL Normal 150-400 [facility] Comment on above: Order Comment: Speci men Type: BLOOD SPECIMENOrdering Facility: [facility] Address: [address] [place] [address] Performed By: #### 5 7021-8 ####[facility] LABORATORYCLIA [id number] [address] [place] RBC (Bld) [#/Vol] 3.39 10*6/uL Low 4.20-6.00 [facility] Comment on above: Order Comment: Speci men Type: BLOOD SPECIMENOrdering Facility: [facility] Address: [address] [place] [address] Performed By: #### 5 7021-8 ####[facility] LABORATORYCLIA [id number] [place] [address] [place] WBC (Bld) [#/Vol] 13.17 10*3/uL High 3.70-11.00 [facility] Comment on above: Order Comment: Speci men Type: BLOOD SPECIMENOrdering Facility: [facility] Address: [facility] [place] [address] Performed By: #### 5 7021-8 ####[facility] LABORATORYCLIA [id number] [address] OF [facility] NURSING PROGon 08-02-2021 NURSING PROG Normal [facility] THERAPY NTon 08-02-2021 THERAPY NT Normal [facility] aPTT PPPon 08-02-2021 aPTT Coag (PPP) [Time] 54.9 s High 23.0-32.4 [facility] Comment on above: Order Comment: Speci men Type: BLOOD SPECIMENOrdering Facility: [facility] Address: [address] [place] [address] Performed By: #### 1 4979-9 ####[facility] LABORATORYCLIA [id number] [address] [place] ALLIED HEALTHon 08-01-2021 ALLIED HEALTH Normal [facility] ALLIED HEALTH Normal [facility] Basic metabolic 2000 panelon 08-01-2021 Anion gap [Moles/Vol] 12 mmol/L Normal 9-18 [facility] Comment on above: Order Comment: Speci men Type: BLOOD SPECIMENOrdering Facility: [facility] Address: [address] [place] [address] Performed By: #### 2 4321-2, 97882-2, 42927-3, 2777-1 ####[facility] LABORATORYCLIA [id number] [place] [address] [place] Calcium [Mass/Vol] 9.1 mg/dL Normal 8.5-10.2 [facility] Comment on above: Order Comment: Speci men Type: BLOOD SPECIMENOrdering Facility: [facility] Address: [address] [place] [address] Performed By: #### 2 4321-2, 85717-6, 39967-3, 2777-1 ####[facility] LABORATORYCLIA [id number] [place] [address] [place] Chloride [Moles/Vol] 96 mmol/L Low 97-105 [facility] Comment on above: Order Comment: Speci men Type: BLOOD SPECIMENOrdering Facility: [facility] Address: [address] [place] [address] Performed By: #### 2 4321-2, 45313-5, 49087-8, 2777-1 ####[facility] LABORATORYCLIA [id number] [address] STATES [place] [facility] CO2 [Moles/Vol] 27 mmol/L Normal 22-30 [facility] Comment on above: Order Comment: Speci men Type: BLOOD SPECIMENOrdering Facility: [facility] Address: [address] [place] [address] Performed By: #### 2 4321-2, 37792-2, 14405-8, 2777- ####[facility] LABORATORYCLIA [id number] [address] [place] Creatinine [Mass/Vol] 0.64 mg/dL Low 0.73-1.22 [facility] Comment on above: Order Comment: Speci men Type: BLOOD SPECIMENOrdering Facility: [facility] Address: [address] [place] [address] Performed By: #### 2 4321-2, 89277-1, 82729-6, 2777-1 ####[facility] LABORATORYCLIA [id number] [address] [place] [facility] ESTIMATED GLOMERULAR FILTRATION RATE 102 mL/min/1.73m??? Normal >=60 [facility] Comment on above: Order Comment: Speci men Type: BLOOD SPECIMENOrdering Facility: [facility] Address: [address] [place] [address] Result Comment: Luzmaria mated Glomerular Filtration Rate (eGFR) is calculated using the 2020 CKD-EPI creatinine equation. This equation utilizes serum creatinine, sex, and age as parameters. The creatinine assay has traceable calibration to isotope dilution-mass spectrometry. Refer to KDIGO guidelines for clinical interpretation. In patients with unstable renal function, e.g. those with acute kidney injury, the eGFR may not accurately reflect actual GFR. Performed By: #### 2 4321-2, 78259-2, 13178-2, 2777-1 ####[facility]ITALCLIA [id number] [place] [address] [place] Glucose [Mass/Vol] 122 mg/dL High 74-99 [facility] Comment on above: Order Comment: Shira feldman Type: BLOOD SPECIMENOrdering Facility: [facility] Address: [address] [place] [address] Result Comment: The [place] Diabetes Association (ADA) provides guidance for cutoff values for fasting glucose and random glucose. The ADA defines fasting as no caloric intake for at least 8 hours. Fasting plasma glucose results between 100 to 125 mg/dL indicate increased risk for diabetes (prediabetes).Fasting plasma glucose results greater than or equal to 126 mg/dL meet the criteria for diagnosis of diabetes. In the absence of unequivocal hyperglycemia, results should be confirmed by repeat testing. In a patient with classic symptoms of hyperglycemia or hyperglycemic crisis, random plasma glucose results greater than or equal to 200 mg/dL meet the criteria for diagnosis of diabetes.Reference: Standards of Medical Care in Diabetes 2016, [place] [employer] Association. Diabetes Care. 2016.39(Suppl 1). Performed By: #### 2 4321-2, 71533-6, 81447-2, 2777-1 ####[facility] LABORATORYCLIA [id number] [place] [address] [place] Potassium [Moles/Vol] 4.2 mmol/L Normal 3.7-5.1 [facility] Comment on above: Order Comment: Shira feldman Type: BLOOD SPECIMENOrdering Facility: [facility] Address: [address] [place] [address] Performed By: #### 2 4321-2, 65046-6, 41537-0, 2777-1 ####[facility] LABORATORYCLIA [id number] [address] STATES [facility] Sodium [Moles/Vol] 135 mmol/L Low 136-144 [facility] Comment on above: Order Comment: Speci men Type: BLOOD SPECIMENOrdering Facility: [facility] Address: [address] [place] [address] Performed By: #### 2 4321-2, 27468-5, 11621-1, 2777-1 ####[facility] LABORATORYCLIA [id number] [address] [place] Urea nitrogen [Mass/Vol] 36 mg/dL High 9-24 [facility] Comment on above: Order Comment: Speci men Type: BLOOD SPECIMENOrdering Facility: [facility] Address: [address] [place] [address] Performed By: #### 2 4321-2, 83749-3, 35534-2, 2777-1 ####[facility] LABORATORYCLIA [id number] [address] [place] CASE MANAGEMon 08-01-2021 CASE MANAGEM Normal [facility] CBC W Auto Differential pane l (Bld)on 08-01-2021 Basophils (Bld) [#/Vol] 0.04 10*3/uL Normal <0.11 [facility] Comment on above: Order Comment: Speci men Type: BLOOD SPECIMENOrdering Facility: [facility] Address: [address] [place] [address] Performed By: #### 5 7021-8 ####[facility] LABORATORYCLIA [id number] [address] STATES [facility] Basophils/100 WBC (Bld) 0.3 % Normal [facility] Comment on above: Order Comment: Speci men Type: BLOOD SPECIMENOrdering Facility: [facility] Address: [address] [place] [address] Performed By: #### 5 7021-8 ####[facility] LABORATORYCLIA [id number] [address] Differential cell count method Nom (Bld) Auto Normal [facility] Comment on above: Order Comment: Speci men Type: BLOOD SPECIMENOrdering Facility: [facility] Address: [address] [place] [address] Performed By: #### 5 7021-8 ####[facility] LABORATORYCLIA [id number] [address] OF [facility] Eosinophils (Bld) [#/Vol] 0.37 10*3/uL Normal <0.46 [facility] Comment on above: Order Comment: Speci men Type: BLOOD SPECIMENOrdering Facility: [facility] Address: [address] [place] [address] Performed By: #### 5 7021-8 ####[facility] LABORATORYCLIA [id number] [address] Eosinophils/100 WBC (Bld) 3.1 % Normal [facility] Comment on above: Order Comment: Speci men Type: BLOOD SPECIMENOrdering Facility: [facility] Address: [address] [place] [address] Performed By: #### 5 7021-8 ####[facility] LABORATORYCLIA [id number] [address] Erythrocyte distribution width (RBC) [Ratio] 17.5 % High 11.5-15.0 [facility] Comment on above: Order Comment: Speci men Type: BLOOD SPECIMENOrdering Facility: [facility] Address: [address] [place] [address] Performed By: #### 5 7021-8 ####[facility] LABORATORYCLIA [id number] [address] Hematocrit (Bld) [Volume fraction] 30.1 % Low 39.0-51.0 [facility] Comment on above: Order Comment: Speci men Type: BLOOD SPECIMENOrdering Facility: [facility] Address: [address] [place] [address] Performed By: #### 5 7021-8 ####[facility] LABORATORYCLIA [id number] [address] Hemoglobin (Bld) [Mass/Vol] 9.1 g/dL Low 13.0-17.0 [facility] Comment on above: Order Comment: Speci men Type: BLOOD SPECIMENOrdering Facility: [facility] Address: [address] [place] [address] Performed By: #### 5 7021-8 ####[facility] LABORATORYCLIA [id number] [address] IMMATURE GRAN % 0.6 % Normal [facility] Comment on above: Order Comment: Speci men Type: BLOOD SPECIMENOrdering Facility: [facility] Address: [address] [place] [address] Performed By: #### 5 7021-8 ####[facility] LABORATORYCLIA [id number] [address] IMMATURE GRAN ABS 0.07 k/uL Normal <0.10 [facility] Comment on above: Order Comment: Speci men Type: BLOOD SPECIMENOrdering Facility: [facility] Address: [address] [place] [address] Performed By: #### 5 7021-8 ####[facility] LABORATORYCLIA [id number] [address] Lymphocytes (Bld) [#/Vol] 2.05 10*3/uL Normal 1.00-4.00 [facility] Comment on above: Order Comment: Speci men Type: BLOOD SPECIMENOrdering Facility: [facility] Address: [address] [place] [address] Performed By: #### 5 7021-8 ####[facility] LABORATORYCLIA [id number] [address] Lymphocytes/100 WBC (Bld) 17.1 % Normal [facility] Comment on above: Order Comment: Speci men Type: BLOOD SPECIMENOrdering Facility: [facility] Address: [address] [place] [address] Performed By: #### 5 7021-8 ####[facility] LABORATORYCLIA [id number] [address] MCH (RBC) [Entitic mass] 27.7 pg Normal 26.0-34.0 [facility] Comment on above: Order Comment: Speci men Type: BLOOD SPECIMENOrdering Facility: [facility] Address: [address] [place] [address] Performed By: #### 5 7021-8 ####[facility] LABORATORYCLIA [id number] [address] MCHC (RBC) [Mass/Vol] 30.2 g/dL Low 30.5-36.0 [facility] Comment on above: Order Comment: Speci men Type: BLOOD SPECIMENOrdering Facility: [facility] Address: [address] [place] [address] Performed By: #### 5 7021-8 ####[facility] LABORATORYCLIA [id number] [address] MCV (RBC) [Entitic vol] 91.5 fL Normal 80.0-100.0 [facility] Comment on above: Order Comment: Speci men Type: BLOOD SPECIMENOrdering Facility: [facility] Address: [address] [place] [address] Performed By: #### 5 7021-8 ####[facility] LABORATORYCLIA [id number] [address] Monocytes (Bld) [#/Vol] 0.53 10*3/uL Normal <0.87 [facility] Comment on above: Order Comment: Speci men Type: BLOOD SPECIMENOrdering Facility: [facility] Address: [address] [place] [address] Performed By: #### 5 7021-8 ####[facility]ATORYCLIA [id number] [address] [place] Monocytes/100 WBC (Bld) 4.4 % Normal [facility] Comment on above: Order Comment: Speci men Type: BLOOD SPECIMENOrdering Facility: [facility] Address: [address] [place] [address] Performed By: #### 5 7021-8 ####[facility] LABORATORYCLIA [id number] [place] [address] [place] Neutrophils (Bld) [#/Vol] 8.91 10*3/uL High 1.45-7.50 [facility] Comment on above: Order Comment: Speci men Type: BLOOD SPECIMENOrdering Facility: [facility] Address: [address] [place] [address] Performed By: #### 5 7021-8 ####[facility] LABORATORYCLIA [id number] [address] [place] Neutrophils/100 WBC (Bld) 74.5 % Normal [facility] Comment on above: Order Comment: Speci men Type: BLOOD SPECIMENOrdering Facility: [facility] Address: [address] [place] [address] Performed By: #### 5 7021-8 ####[facility] LABORATORYCLIA [id number] [address] [place] Nucleated RBC (Bld) [#/Vol] 10*3/uL Normal <0.01 [facility] Comment on above: Order Comment: Speci men Type: BLOOD SPECIMENOrdering Facility: [facility] Address: [address] [place] [address] Performed By: #### 5 7021-8 ####[facility] LABORATORYCLIA [id number] [address] [place] Nucleated RBC/100 WBC (Bld) [Ratio] 0.0 /100 WBC Normal [facility] Comment on above: Order Comment: Speci men Type: BLOOD SPECIMENOrdering Facility: [facility] Address: [address] Performed By: #### 5 7021-8 ####[facility] LABORATORYCLIA [id number] [address] Platelet mean volume (Bld) [Entitic vol] 10.4 fL Normal 9.0-12.7 [facility] Comment on above: Order Comment: Speci men Type: BLOOD SPECIMENOrdering Facility: [facility] Address: [address] [place] [address] Performed By: #### 5 7021-8 ####[facility] LABORATORYCLIA [id number] [address] [place] Platelets (Bld) [#/Vol] 319 10*3/uL Normal 150-400 [facility] Comment on above: Order Comment: Speci men Type: BLOOD SPECIMENOrdering Facility: [facility] Address: [address] [place] [address] Performed By: #### 5 7021-8 ####[facility] LABORATORYCLIA [id number] [address] [place] RBC (Bld) [#/Vol] 3.29 10*6/uL Low 4.20-6.00 [facility] Comment on above: Order Comment: Speci men Type: BLOOD SPECIMENOrdering Facility: [facility] Address: [address] [place] [address] Performed By: #### 5 7021-8 ####[facility] LABORATORYCLIA [id number] [address] [place] WBC (Bld) [#/Vol] 11.97 10*3/uL High 3.70-11.00 [facility] Comment on above: Order Comment: Speci men Type: BLOOD SPECIMENOrdering Facility: [facility] Address: [address] [place] [address] Performed By: #### 5 7021-8 ####[facility] LABORATORYCLIA [id number] [address] [place] [address] BRAIN WO IVCONon 03-28-[address] BRAIN WO IVCON Normal [facility] Magnesium SerPl-mCncon 08-01 Magnesium [Mass/Vol] 2.4 mg/dL High 1.7-2.3 [facility] Comment on above: Order Comment: Speci men Type: BLOOD SPECIMENOrdering Facility: [facility] Address: [address] [place] [address] Performed By: #### 2 4321-2, 79999-2, 89396-0, 2777-1 ####[facility] LABORATORYCLIA [id number] [address] [place] NURSING PROGon 08-01-2021 NURSING PROG Normal [facility] NUTRITIONon 08-01-2021 NUTRITION Normal [facility] Phosphate SerPl-mCncon 08-01 Phosphate [Mass/Vol] 3.3 mg/dL Normal 2.7-4.8 [facility] Comment on above: Order Comment: Speci men Type: BLOOD SPECIMENOrdering Facility: [facility] Address: [address] [place] [address] Performed By: #### 2 4321-2, 58463-1, 50313-5, 2777-1 ####[facility] LABORATORYCLIA [id number] [address] [place] Prealbumin [Mass/Vol]on 07-06 Prealbumin Nephelometry [Mass/Vol] 30 mg/dL Normal 17-36 [facility] Comment on above: Order Comment: Speci men Type: BLOOD SPECIMENOrdering Facility: [facility] Address: [address] [place] [address] Performed By: #### 2 4321-2, 70485-7, 04534-5, 2777-1 ####[facility] LABORATORYCLIA [id number] [address] [place] THERAPY NTon 08-01-2021 THERAPY NT Normal [facility] THERAPY NT Normal [facility] TYPE AND SCREENon 03-28-2022 ABO O Normal [facility] Comment on above: Order Comment: Speci men Type: BLOOD SPECIMENOrdering Facility: [facility] Address: [address] [place] [address] Performed By: #### T SCR ####[facility] BLOOD BANKCLIA [id number] [address] HISTORICAL AB SCR STATUS Negative Normal [facility] Comment on above: Order Comment: Speci men Type: BLOOD SPECIMENOrdering Facility: [facility] Address: [address] [place] [address] Performed By: #### T SCR ####[facility] BLOOD BANKCLIA [id number] [address] Rh Nom (Bld) Positive Normal [facility] Comment on above: Order Comment: Speci men Type: BLOOD SPECIMENOrdering Facility: [facility] Address: [address] [place] [address] Performed By: #### T SCR ####[facility] BLOOD BANKCLIA [id number] [address] TYPE AND SCREEN EXPIRATION 08/04/2021 23:59 Normal [facility] Comment on above: Order Comment: Speci men Type: BLOOD SPECIMENOrdering Facility: [facility] Address: [address] [place] [address] Performed By: #### T SCR ####[facility] BLOOD BANKCLIA [id number] [address] [place] XR CHEST 1V FRONTALon 2021 XR CHEST 1V FRONTAL Normal [facility] aPTT PPPon 08-01-2021 aPTT Coag (PPP) [Time] 50.9 s High 23.0-32.4 [facility] Comment on above: Order Comment: Speci men Type: BLOOD SPECIMENOrdering Facility: [facility] Address: [address] [place] [address] Performed By: #### 1 4979-9 ####[facility] LABORATORYCLIA [id number] [address] [place] [facility] CBC W Auto Differential pane l (Bld)on 07-31-2021 Basophils (Bld) [#/Vol] 0.05 10*3/uL Normal <0.11 [facility] Comment on above: Order Comment: Speci men Type: BLOOD SPECIMENOrdering Facility: [facility] Address: [address] [place] [address] Performed By: #### 5 7021-8 ####[facility] LABORATORYCLIA [id number] [address] Basophils/100 WBC (Bld) 0.4 % Normal [facility] Comment on above: Order Comment: Speci men Type: BLOOD SPECIMENOrdering Facility: [facility] Address: [address] [place] [address] Performed By: #### 5 7021-8 ####[facility] LABORATORYCLIA [id number] [address] Differential cell count method Nom (Bld) Auto Normal [facility] Comment on above: Order Comment: Speci men Type: BLOOD SPECIMENOrdering Facility: [facility] Address: [address] [place] [address] Performed By: #### 5 7021-8 ####[facility] LABORATORYCLIA [id number] [address] [place] Eosinophils (Bld) [#/Vol] 0.51 10*3/uL High <0.46 [facility] Comment on above: Order Comment: Speci men Type: BLOOD SPECIMENOrdering Facility: [facility] Address: [address] [place] [address] Performed By: #### 5 7021-8 ####[facility] LABORATORYCLIA [id number] [address] Eosinophils/100 WBC (Bld) 4.5 % Normal [facility] Comment on above: Order Comment: Speci men Type: BLOOD SPECIMENOrdering Facility: [facility] Address: [address] [place], [place] [address] Performed By: #### 5 7021-8 ####[facility] LABORATORYCLIA [id number] [address] Erythrocyte distribution width (RBC) [Ratio] 17.5 % High 11.5-15.0 [facility] Comment on above: Order Comment: Speci men Type: BLOOD SPECIMENOrdering Facility: [facility] Address: [address] [place] [address] Performed By: #### 5 7021-8 ####[facility] LABORATORYCLIA [id number] [address] Hematocrit (Bld) [Volume fraction] 30.4 % Low 39.0-51.0 [facility] Comment on above: Order Comment: Speci men Type: BLOOD SPECIMENOrdering Facility: [facility] Address: [address] [place] [address] Performed By: #### 5 7021-8 ####[facility] LABORATORYCLIA [id number] [address] Hemoglobin (Bld) [Mass/Vol] 9.2 g/dL Low 13.0-17.0 [facility] Comment on above: Order Comment: Speci men Type: BLOOD SPECIMENOrdering Facility: [facility] Address: [address] [place] [address] Performed By: #### 5 7021-8 ####[facility] LABORATORYCLIA [id number] [address] IMMATURE GRAN % 0.5 % Normal [facility] Comment on above: Order Comment: Speci men Type: BLOOD SPECIMENOrdering Facility: [facility] Address: [address] [place] [address] Performed By: #### 5 7021-8 ####[facility] LABORATORYCLIA [id number] [address] IMMATURE GRAN ABS 0.06 k/uL Normal <0.10 [facility] Comment on above: Order Comment: Speci men Type: BLOOD SPECIMENOrdering Facility: [facility] Address: [address] [place], [place] [address] Performed By: #### 5 7021-8 ####[facility] LABORATORYCLIA [id number] [address] Lymphocytes (Bld) [#/Vol] 1.99 10*3/uL Normal 1.00-4.00 [facility] Comment on above: Order Comment: Speci men Type: BLOOD SPECIMENOrdering Facility: [facility] Address: [address] [place] [address] Performed By: #### 5 7021-8 ####[facility] LABORATORYCLIA [id number] [address] Lymphocytes/100 WBC (Bld) 17.6 % Normal [facility] Comment on above: Order Comment: Speci men Type: BLOOD SPECIMENOrdering Facility: [facility] Address: [address] [place] [address] Performed By: #### 5 7021-8 ####[facility] LABORATORYCLIA [id number] [address] MCH (RBC) [Entitic mass] 28.4 pg Normal 26.0-34.0 [facility] Comment on above: Order Comment: Speci men Type: BLOOD SPECIMENOrdering Facility: [facility] Address: [address] [place] [address] Performed By: #### 5 7021-8 ####[facility] LABORATORYCLIA [id number] [address] [place] MCHC (RBC) [Mass/Vol] 30.3 g/dL Low 30.5-36.0 [facility] Comment on above: Order Comment: Speci men Type: BLOOD SPECIMENOrdering Facility: [facility] Address: [address] [place] [address] Performed By: #### 5 7021-8 ####[facility] LABORATORYCLIA [id number] [place] [address] [place] MCV (RBC) [Entitic vol] 93.8 fL Normal 80.0-100.0 [facility] Comment on above: Order Comment: Speci men Type: BLOOD SPECIMENOrdering Facility: [facility] Address: [address] [place] [address] Performed By: #### 5 7021-8 ####[facility] LABORATORYCLIA [id number] [address] [place] Monocytes (Bld) [#/Vol] 0.57 10*3/uL Normal <0.87 [facility] Comment on above: Order Comment: Speci men Type: BLOOD SPECIMENOrdering Facility: [facility] Address: [address] [place] [address] Performed By: #### 5 7021-8 ####[facility] LABORATORYCLIA [id number] [address] Monocytes/100 WBC (Bld) 5.0 % Normal [facility] Comment on above: Order Comment: Speci men Type: BLOOD SPECIMENOrdering Facility: [facility] Address: [address] [place] [address] Performed By: #### 5 7021-8 ####[facility] LABORATORYCLIA [id number] [address] [place] Neutrophils (Bld) [#/Vol] 8.12 10*3/uL High 1.45-7.50 [facility] Comment on above: Order Comment: Speci men Type: BLOOD SPECIMENOrdering Facility: [facility] Address: [address] [place] [address] Performed By: #### 5 7021-8 ####[facility] LABORATORYCLIA [id number] [address] [place] Neutrophils/100 WBC (Bld) 72.0 % Normal [facility] Comment on above: Order Comment: Speci men Type: BLOOD SPECIMENOrdering Facility: [facility] Address: [address] [place] [address] Performed By: #### 5 7021-8 ####[facility] LABORATORYCLIA [id number] [address] [place] Nucleated RBC (Bld) [#/Vol] 10*3/uL Normal <0.01 [facility] Comment on above: Order Comment: Speci men Type: BLOOD SPECIMENOrdering Facility: [facility] Address: [address] [place] [address] Performed By: #### 5 7021-8 ####[facility] LABORATORYCLIA [id number] [address] [place] Nucleated RBC/100 WBC (Bld) [Ratio] 0.0 /100 WBC Normal [facility] Comment on above: Order Comment: Speci men Type: BLOOD SPECIMENOrdering Facility: [facility] Address: [address] [place] [address] Performed By: #### 5 7021-8 ####[facility]ORATORYCLIA [id number] [address] Platelet mean volume (Bld) [Entitic vol] 10.9 fL Normal 9.0-12.7 [facility] Comment on above: Order Comment: Speci men Type: BLOOD SPECIMENOrdering Facility: [facility] Address: [address] [place] [address] Performed By: #### 5 7021-8 ####[facility] LABORATORYCLIA [id number] [address] [place] Platelets (Bld) [#/Vol] 303 10*3/uL Normal 150-400 [facility] Comment on above: Order Comment: Speci men Type: BLOOD SPECIMENOrdering Facility: [facility] Address: [address] [place] [address] Performed By: #### 5 7021-8 ####[facility] LABORATORYCLIA [id number] [address] [place] RBC (Bld) [#/Vol] 3.24 10*6/uL Low 4.20-6.00 [facility] Comment on above: Order Comment: Speci men Type: BLOOD SPECIMENOrdering Facility: [facility] Address: [address] [place] [address] Performed By: #### 5 7021-8 ####[facility] LABORATORYCLIA [id number] [place] [address] [place] WBC (Bld) [#/Vol] 11.30 10*3/uL High 3.70-11.00 [facility] Comment on above: Order Comment: Speci men Type: BLOOD SPECIMENOrdering Facility: [facility] Address: [address] [place] [address] Performed By: #### 5 7021-8 ####[facility] LABORATORYCLIA [id number] [address] [place] NURSING PROGon 07-31-2021 NURSING PROG Normal [facility] aPTT PPPon 07-31-2021 aPTT Coag (PPP) [Time] 64.9 s High 23.0-32.4 [facility] Comment on above: Order Comment: Speci men Type: BLOOD SPECIMENOrdering Facility: [facility] Address: [address] [place] [address] Performed By: #### 1 4979-9 ####[facility] LABORATORYCLIA [id number] [address] [place] ALLIED HEALTHon 07-30-2021 ALLIED HEALTH Normal [facility] Bacteria CSF Culton 07-31-19 22 Bacteria identified Cx Nom (CSF) CULTURE, CSF: No growth 14 days GRAM STAIN: No organisms seen Few Mononuclear cells Rare Polymorphonuclear leukocytes Gram stain performed on cytospun specimen. [facility] Comment on above: Performed By: #### 6 06-4 ####[facility] LABORATORYCLIA [id number] [place] [address] [place] Basic metabolic 2000 panelon 07-30-2021 Anion gap [Moles/Vol] 9 mmol/L Normal 9-18 [facility] Comment on above: Order Comment: Speci men Type: BLOOD SPECIMENOrdering Facility: [facility] Address: [address] [place] [address] Performed By: #### 2 777-1, , ####[facility] LABORATORYCLIA [id number] [place] [address] [place] Calcium [Mass/Vol] 8.9 mg/dL Normal 8.5-10.2 [facility] Comment on above: Order Comment: Speci men Type: BLOOD SPECIMENOrdering Facility: [facility] Address: [address] [place] [address] Performed By: #### 2 777-1, , ####[facility] LABORATORYCLIA [id number] [place] [address] [place] Chloride [Moles/Vol] 95 mmol/L Low 97-105 [facility] Comment on above: Order Comment: Speci men Type: BLOOD SPECIMENOrdering Facility: [facility] Address: [address] [place] [address] Performed By: #### 2 777-1, , ####[facility] LABORATORYCLIA [id number] [place] [address] [place] CO2 [Moles/Vol] 28 mmol/L Normal 22-30 [facility] Comment on above: Order Comment: Speci men Type: BLOOD SPECIMENOrdering Facility: [facility] Address: [address] [place] [address] Performed By: #### 2 777-1, , ####[facility] LABORATORYCLIA [id number] [place] [address] [place] Creatinine [Mass/Vol] 0.67 mg/dL Low 0.73-1.22 [facility] Comment on above: Order Comment: Speci men Type: BLOOD SPECIMENOrdering Facility: [facility] Address: [address] [place] [address] Performed By: #### 2 777-1, 12014-1 ####[facility]ITALCLIA [id number] [place] [address] [place] ESTIMATED GLOMERULAR FILTRATION RATE 101 mL/min/1.73m??? Normal >=60 [facility] Comment on above: Order Comment: Shira feldman Type: BLOOD SPECIMENOrdering Facility: [facility] Address: [address] [place] [address] Result Comment: Luzmaria mated Glomerular Filtration Rate (eGFR) is calculated using the 2020 CKD-EPI creatinine equation. This equation utilizes serum creatinine, sex, and age as parameters. The creatinine assay has traceable calibration to isotope dilution-mass spectrometry. Refer to KDIGO guidelines for clinical interpretation. In patients with unstable renal function, e.g. those with acute kidney injury, the eGFR may not accurately reflect actual GFR. Performed By: #### 2 777-1, , ####[facility]ITALCLIA [id number] [place] [id number] [place] Glucose [Mass/Vol] 125 mg/dL High 74-99 [facility] Comment on above: Order Comment: Shira francia Type: BLOOD SPECIMENOrdering Facility: [facility] Address: [address] [place] [address] Result Comment: The [place] [employer] (ADA) provides guidance for cutoff values for fasting glucose and random glucose. The ADA defines fasting as no caloric intake for at least 8 hours. Fasting plasma glucose results between 100 to 125 mg/dL indicate increased risk for diabetes (prediabetes).Fasting plasma glucose results greater than or equal to 126 mg/dL meet the criteria for diagnosis of diabetes. In the absence of unequivocal hyperglycemia, results should be confirmed by repeat testing. In a patient with classic symptoms of hyperglycemia or hyperglycemic crisis, random plasma glucose results greater than or equal to 200 mg/dL meet the criteria for diagnosis of diabetes.Reference: Standards of Medical Care in Diabetes 2016, [place] [employer]. Diabetes Care. 2016.39(Suppl 1). Performed By: #### 2 777-1, 14130-3, ####[facility] LABORATORYCLIA [id number] [place] [address] [place] Potassium [Moles/Vol] 3.9 mmol/L Normal 3.7-5.1 [facility] Comment on above: Order Comment: Speci men Type: BLOOD SPECIMENOrdering Facility: [facility] Address: [address] [place] [address] Performed By: #### 2 777-1, 72735-2, ####[facility] LABORATORYCLIA [id number] [address] [place] Sodium [Moles/Vol] 132 mmol/L Low 136-144 [facility] Comment on above: Order Comment: Speci men Type: BLOOD SPECIMENOrdering Facility: [facility] Address: [address] [place] [address] Performed By: #### 2 777-1, 76063-3, ####[facility] LABORATORYCLIA [id number] [address] [place] Urea nitrogen [Mass/Vol] 38 mg/dL High 9-24 [facility] Comment on above: Order Comment: Speci men Type: BLOOD SPECIMENOrdering Facility: [facility] Address: [address] [place] [address] Performed By: #### 2 777-1, 20443-8, ####[facility]ORATORYCLIA [id number] [address] [place] CBC W Auto Differential pane l (Bld)on 07-30-2021 Basophils (Bld) [#/Vol] 0.04 10*3/uL Normal <0.11 [facility] Comment on above: Order Comment: Speci men Type: BLOOD SPECIMENOrdering Facility: [facility] Address: [address] [place] [address] Performed By: #### 5 7021-8 ####[facility] LABORATORYCLIA [id number] [address] [place] Basophils/100 WBC (Bld) 0.4 % Normal [facility] Comment on above: Order Comment: Speci men Type: BLOOD SPECIMENOrdering Facility: [facility] Address: [address] [place] [address] Performed By: #### 5 7021-8 ####[facility] LABORATORYCLIA [id number] [address] Differential cell count method Nom (Bld) Auto Normal [facility] Comment on above: Order Comment: Speci men Type: BLOOD SPECIMENOrdering Facility: [facility] Address: [address] [place] [address] Performed By: #### 5 7021-8 ####[facility] LABORATORYCLIA [id number] [address] Eosinophils (Bld) [#/Vol] 0.30 10*3/uL Normal <0.46 [facility] Comment on above: Order Comment: Speci men Type: BLOOD SPECIMENOrdering Facility: [facility] Address: [address] [place] [address] Performed By: #### 5 7021-8 ####[facility] LABORATORYCLIA [id number] [address] Eosinophils/100 WBC (Bld) 2.7 % Normal [facility] Comment on above: Order Comment: Speci men Type: BLOOD SPECIMENOrdering Facility: [facility] Address: [address] [place] [address] Performed By: #### 5 7021-8 ####[facility] LABORATORYCLIA [id number] [address] Erythrocyte distribution width (RBC) [Ratio] 17.2 % High 11.5-15.0 [facility] Comment on above: Order Comment: Speci men Type: BLOOD SPECIMENOrdering Facility: [facility] Address: [address] [place] [address] Performed By: #### 5 7021-8 ####[facility] LABORATORYCLIA [id number] [address] [place] Hematocrit (Bld) [Volume fraction] 30.8 % Low 39.0-51.0 [facility] Comment on above: Order Comment: Speci men Type: BLOOD SPECIMENOrdering Facility: [facility] Address: [address] [place] [address] Performed By: #### 5 7021-8 ####[facility] LABORATORYCLIA [id number] [address] [place] Hemoglobin (Bld) [Mass/Vol] 9.4 g/dL Low 13.0-17.0 [facility] Comment on above: Order Comment: Speci men Type: BLOOD SPECIMENOrdering Facility: [facility] Address: [address] [place] [address] Performed By: #### 5 7021-8 ####[facility] LABORATORYCLIA [id number] [address] [place] IMMATURE GRAN % 0.5 % Normal [facility] Comment on above: Order Comment: Speci men Type: BLOOD SPECIMENOrdering Facility: [facility] Address: [address] [place] [address] Performed By: #### 5 7021-8 ####[facility] LABORATORYCLIA [id number] [address] IMMATURE GRAN ABS 0.06 k/uL Normal <0.10 [facility] Comment on above: Order Comment: Speci men Type: BLOOD SPECIMENOrdering Facility: [facility] Address: [address] [place] [address] Performed By: #### 5 7021-8 ####[facility] LABORATORYCLIA [id number] [address] [place] Lymphocytes (Bld) [#/Vol] 1.68 10*3/uL Normal 1.00-4.00 [facility] Comment on above: Order Comment: Speci men Type: BLOOD SPECIMENOrdering Facility: [facility] Address: [address] [place] [address] Performed By: #### 5 7021-8 ####[facility] LABORATORYCLIA [id number] [address] Lymphocytes/100 WBC (Bld) 15.3 % Normal [facility] Comment on above: Order Comment: Speci men Type: BLOOD SPECIMENOrdering Facility: [facility] Address: [address] [place] [address] Performed By: #### 5 7021-8 ####[facility] LABORATORYCLIA [id number] [address] MCH (RBC) [Entitic mass] 28.0 pg Normal 26.0-34.0 [facility] Comment on above: Order Comment: Speci men Type: BLOOD SPECIMENOrdering Facility: [facility] Address: [address] [place] [address] Performed By: #### 5 7021-8 ####[facility] LABORATORYCLIA [id number] [address] [place] MCHC (RBC) [Mass/Vol] 30.5 g/dL Normal 30.5-36.0 [facility] Comment on above: Order Comment: Speci men Type: BLOOD SPECIMENOrdering Facility: [facility] Address: [address] [place] [address] Performed By: #### 5 7021-8 ####[facility] LABORATORYCLIA [id number] [address] [place] MCV (RBC) [Entitic vol] 91.7 fL Normal 80.0-100.0 [facility] Comment on above: Order Comment: Speci men Type: BLOOD SPECIMENOrdering Facility: [facility] Address: [address] [place] [address] Performed By: #### 5 7021-8 ####[facility] LABORATORYCLIA [id number] [address] Monocytes (Bld) [#/Vol] 0.53 10*3/uL Normal <0.87 [facility] Comment on above: Order Comment: Speci men Type: BLOOD SPECIMENOrdering Facility: [facility] Address: [address] [place] [address] Performed By: #### 5 7021-8 ####[facility]ATORYCLIA [id number] [address] [place] Monocytes/100 WBC (Bld) 4.8 % Normal [facility] Comment on above: Order Comment: Speci men Type: BLOOD SPECIMENOrdering Facility: [facility] Address: [address] [place] [address] Performed By: #### 5 7021-8 ####[facility]ORATORYCLIA [id number] [place] [address] [place] Neutrophils (Bld) [#/Vol] 8.39 10*3/uL High 1.45-7.50 [facility] Comment on above: Order Comment: Speci men Type: BLOOD SPECIMENOrdering Facility: [facility] Address: [address] [place] [address] Performed By: #### 5 7021-8 ####[facility] LABORATORYCLIA [id number] [address] STATES [facility] Neutrophils/100 WBC (Bld) 76.3 % Normal [facility] Comment on above: Order Comment: Speci men Type: BLOOD SPECIMENOrdering Facility: [facility] Address: [address] [place] [address] Performed By: #### 5 7021-8 ####[facility]ORATORYCLIA [id number] [address] [place] Nucleated RBC (Bld) [#/Vol] 10*3/uL Normal <0.01 [facility] Comment on above: Order Comment: Speci men Type: BLOOD SPECIMENOrdering Facility: [facility] Address: [address] [place] [address] Performed By: #### 5 7021-8 ####[facility]ORATORYCLIA [id number] [address] [place] Nucleated RBC/100 WBC (Bld) [Ratio] 0.0 /100 WBC Normal [facility] Comment on above: Order Comment: Speci men Type: BLOOD SPECIMENOrdering Facility: [facility] Address: [address] [place] [address] Performed By: #### 5 7021-8 ####[facility] LABORATORYCLIA [id number] [address] [place] Platelet mean volume (Bld) [Entitic vol] 10.9 fL Normal 9.0-12.7 [facility] Comment on above: Order Comment: Speci men Type: BLOOD SPECIMENOrdering Facility: [facility] Address: [address] [place], [place] [address] Performed By: #### 5 7021-8 ####[facility] LABORATORYCLIA [id number] [address] [place] Platelets (Bld) [#/Vol] 287 10*3/uL Normal 150-400 [facility] Comment on above: Order Comment: Speci men Type: BLOOD SPECIMENOrdering Facility: [facility] Address: [address] [place] [address] Performed By: #### 5 7021-8 ####[facility] LABORATORYCLIA [id number] [place] [address] [place] RBC (Bld) [#/Vol] 3.36 10*6/uL Low 4.20-6.00 [facility] Comment on above: Order Comment: Speci men Type: BLOOD SPECIMENOrdering Facility: [facility] Address: [address] [place], [place] [address] Performed By: #### 5 7021-8 ####[facility] LABORATORYCLIA [id number] [place] [address] [place] WBC (Bld) [#/Vol] 11.00 10*3/uL Normal 3.70-11.00 [facility] Comment on above: Order Comment: Speci men Type: BLOOD SPECIMENOrdering Facility: [facility] Address: [address] [place] [address] Performed By: #### 5 7021-8 ####[facility]ORATORYCLIA [id number] [address] [place] CSF MANUAL DIFFon 07-30-2021 DIF TTL, CSF 100 cells counted Normal [facility] Comment on above: Order Comment: Speci men Type: CEREBROSPINAL FLUIDOrdering Facility: [facility] Address: [address] [place] [address] Performed By: #### L [id number], HIF3488, 66439-7 ####[facility]ATORYCLIA [id number] [address] [place] EOSIN%, CSF 0 % Normal [facility] Comment on above: Order Comment: Speci men Type: CEREBROSPINAL FLUIDOrdering Facility: [facility] Address: [address] [place] [address] Performed By: #### L [id number], CEL8106, 62311-4 ####[facility]ATORYCLIA [id number] [address] [place] LYMPH%, CSF 75 % Normal 50-90 [facility] Comment on above: Order Comment: Speci men Type: CEREBROSPINAL FLUIDOrdering Facility: [facility] Address: [address] [place] [address] Performed By: #### L [id number], RGC8516, 60050-7 ####[facility]ORATORYCLIA [id number] [place] [address] [place] MACRO%, CSF 9 % High <1 [facility] Comment on above: Order Comment: Speci men Type: CEREBROSPINAL FLUIDOrdering Facility: [facility] Address: [address] [place] [address] Performed By: #### L [id number], CKZ3618, 91474-0 ####[facility]ATORYCLIA [id number] [address] [place] MONO%, CSF 10 % Normal 10-50 [facility] Comment on above: Order Comment: Speci men Type: CEREBROSPINAL FLUIDOrdering Facility: [facility] Address: [address] [place] [address] Performed By: #### L [id number], OMU7846, 30151-8 ####[facility]ATORYCLIA [id number] [address] [place] [facility] OTHER CL%, CSF 4 % Normal [facility] Comment on above: Order Comment: Speci men Type: CEREBROSPINAL FLUIDOrdering Facility: [facility] Address: [address] [place] [address] Result Comment: Path review to follow. Performed By: #### L IY0501, YBI5646, 18886-7 ####[facility]ATORYCLIA [id number] [address] [place] REAC LYMPH %, CSF 2 % Normal [facility] Comment on above: Order Comment: Speci men Type: CEREBROSPINAL FLUIDOrdering Facility: [facility] Address: [address] [place] [address] Performed By: #### L [id number], KGW9562, 32749-7 ####[facility]ATORYCLIA [id number] [address] CSF PATHOLOGIST INTERP (LAB REFLEX ORDER-NO BILL)on 07-30-2021 CSF STAFF REVIEW Negative Normal [facility] Comment on above: Order Comment: Speci men Type: CEREBROSPINAL FLUIDOrdering Facility: [facility] Address: [address] [place] [address] Performed By: #### L QL8893, PSE6689, 40640-3 ####[facility]ATORYCLIA [id number] [address] Pathologist name Reviewed by Eloise rebolledo MD [facility] Comment on above: Order Comment: Speci men Type: CEREBROSPINAL FLUIDOrdering Facility: [facility] Address: [address] [place] [address] Performed By: #### L [id number], [id number], 51713-9 ####[facility] LABORATORYCLIA [id number] [address] [place] BRAIN WO IVCONon 07-31-19 CT BRAIN WO IVCON Normal [facility] Cell count panel (CSF)on Clarity (CSF) Clear Normal Clear [facility] Comment on above: Order Comment: Speci men Type: CEREBROSPINAL FLUIDOrdering Facility: [facility] Address: [address] [address] Performed By: #### L [id number], [id number], 87259-3 ####[facility]ORATORYCLIA [id number] [address] Clarity (Unsp spec) Clear Normal Clear [facility] Comment on above: Order Comment: Speci men Type: CEREBROSPINAL FLUIDOrdering Facility: [facility] Address: [address] [place] [address] Performed By: #### L [id number], [id number], 65240-1 ####[facility]ATORYCLIA [id number] [address] OF [facility] Color (CSF) Colorless Normal Colorless [facility] Comment on above: Order Comment: Speci men Type: CEREBROSPINAL FLUIDOrdering Facility: [facility] Address: [address] [place] [address] Performed By: #### L [id number], PZA4891, 35146-7 ####[facility]ORATORYCLIA [id number] [address] Color (Spun CSF) Colorless Normal Colorless [facility] Comment on above: Order Comment: Speci men Type: CEREBROSPINAL FLUIDOrdering Facility: [facility] Address: [address] [address] Performed By: #### L [id number], TKA0712, 78170-1 ####[facility]ORATORYCLIA [id number] [address] [place] CSF TUBE NUMBER [employer] Normal [facility] Comment on above: Order Comment: Speci men Type: CEREBROSPINAL FLUIDOrdering Facility: [facility] Address: [facility] [place] [address] Performed By: #### L [id number], [id number], 51940-8 ####[facility] LABORATORYCLIA [id number] [address] RBC Manual cnt (CSF) [#/Vol] 9 cells/uL High 0-5 [facility] Comment on above: Order Comment: Speci men Type: CEREBROSPINAL FLUIDOrdering Facility: [facility] Address: [address] [place] [address] Performed By: #### L [id number], YQR1586, 63119-1 ####[facility] LABORATORYCLIA [id number] [address] WBC Manual cnt (CSF) [#/Vol] 8 cells/uL High 0-5 [facility] Comment on above: Order Comment: Speci men Type: CEREBROSPINAL FLUIDOrdering Facility: [facility] Address: [address] [place] [address] Performed By: #### L [id number], VKN4177, 85015-1 ####[facility]ITALCLIA [id number] [address] Glucose [facility] Glucose (CSF) [Mass/Vol] 65 mg/dL Normal 40-70 [facility] Comment on above: Order Comment: Speci men Type: CEREBROSPINAL FLUIDOrdering Facility: [facility] Address: [address] [place] [address] Result Comment: Lumb ar CSF glucose values of healthy patients are approximately 60% of the plasma values and must always be compared with a concurrently measured plasma value for adequate clinical interpretation.References: 1. Glucose HK (GLUC3) [package insert V 12.0 [place]]. [employer], [place], [place]. September 2015. 2. Michelle Moore, Loki, H. (2015). Chapter 7: Glucose and Lactate. Marianela Rothman.(eds.), Cerebrospinal Fluid in Clinical Neurology. [place]: [place]. Performed By: #### 2 342-4, 2880-3 ####[facility] LABORATORYCLIA [id number] [place] [address] Magnesium SerPl-ncon 07-30 Magnesium [Mass/Vol] 2.5 mg/dL High 1.7-2.3 [facility] Comment on above: Order Comment: Speci men Type: BLOOD SPECIMENOrdering Facility: [facility] Address: [address] [place] [address] Performed By: #### 2 777-1, 33282-5, ####[facility] LABORATORYCLIA [id number] [address] [facility] NURSING PROGon 07-30-2021 NURSING PROG Normal [facility] Phosphate SerPl-mCncon 07-30 Phosphate [Mass/Vol] 2.4 mg/dL Low 2.7-4.8 [facility] Comment on above: Order Comment: Speci men Type: BLOOD SPECIMENOrdering Facility: [facility] Address: [address] [place] [address] Performed By: #### 2 777-1, 88459-2, ####[facility] LABORATORYCLIA [id number] [address] Prot CSF-mCncon 07-30-2021 Protein (CSF) [Mass/Vol] 50 mg/dL High 15-45 [facility] Comment on above: Order Comment: Speci men Type: CEREBROSPINAL FLUIDOrdering Facility: [facility] Address: [address] [place] [address] Performed By: #### 2 342-4, 2880-3 ####[facility] LABORATORYCLIA [id number] [address] [place] aPTT PPPon 07-30-2021 aPTT Coag (PPP) [Time] 64.1 s High 23.0-32.4 [facility] Comment on above: Order Comment: Speci men Type: BLOOD SPECIMENOrdering Facility: [facility] Address: [address] [place] [address] Performed By: #### 1 4979-9 ####[facility]ITALCLIA [id number] [address] [place] Bacteria CSF Culton 07-30-19 22 Bacteria identified Cx Nom (CSF) CULTURE, CSF: No growth 14 days GRAM STAIN: No cells or organisms seen Gram stain performed on cytospun specimen. Gram stain confirmed by microbiology Normal [facility] Comment on above: Performed By: #### 6 06-4 ####[facility] LABORATORYCLIA [id number] [address] [place] CASE MANAGEMon 07-29-2021 CASE MANAGEM Normal [facility] CBC W Auto Differential pane l (Bld)on 07-29-2021 Basophils (Bld) [#/Vol] 0.03 10*3/uL Normal <0.11 [facility] Comment on above: Order Comment: Speci men Type: BLOOD SPECIMENOrdering Facility: [facility] Address: [address] [place] [address] Performed By: #### 5 7021-8 ####[facility] LABORATORYCLIA [id number] [address] [place] Basophils/100 WBC (Bld) 0.3 % Normal [facility] Comment on above: Order Comment: Speci men Type: BLOOD SPECIMENOrdering Facility: [facility] Address: [address] [place] [address] Performed By: #### 5 7021-8 ####[facility] LABORATORYCLIA [id number] [address] [place] Differential cell count method Nom (Bld) Auto Normal [facility] Comment on above: Order Comment: Speci men Type: BLOOD SPECIMENOrdering Facility: [facility] Address: [address] [place] [address] Performed By: #### 5 7021-8 ####[facility] LABORATORYCLIA [id number] [place] [address] [place] Eosinophils (Bld) [#/Vol] 0.40 10*3/uL Normal <0.46 [facility] Comment on above: Order Comment: Speci men Type: BLOOD SPECIMENOrdering Facility: [facility] Address: [address] [place] [address] Performed By: #### 5 7021-8 ####[facility] LABORATORYCLIA [id number] [address] STATES OF [facility] Eosinophils/100 WBC (Bld) 3.9 % Normal [facility] Comment on above: Order Comment: Speci men Type: BLOOD SPECIMENOrdering Facility: [facility] Address: [address] [place] [address] Performed By: #### 5 7021-8 ####[facility] LABORATORYCLIA [id number] [address] Erythrocyte distribution width (RBC) [Ratio] 17.1 % High 11.5-15.0 [facility] Comment on above: Order Comment: Speci men Type: BLOOD SPECIMENOrdering Facility: [facility] Address: [address] [place] [address] Performed By: #### 5 7021-8 ####[facility] LABORATORYCLIA [id number] [address] Hematocrit (Bld) [Volume fraction] 32.0 % Low 39.0-51.0 [facility] Comment on above: Order Comment: Speci men Type: BLOOD SPECIMENOrdering Facility: [facility] Address: [address] [place] [address] Performed By: #### 5 7021-8 ####[facility] LABORATORYCLIA [id number] [address] [place] Hemoglobin (Bld) [Mass/Vol] 9.7 g/dL Low 13.0-17.0 [facility] Comment on above: Order Comment: Speci men Type: BLOOD SPECIMENOrdering Facility: [facility] Address: [address] [place] [address] Performed By: #### 5 7021-8 ####[facility] LABORATORYCLIA [id number] [address] [place] IMMATURE GRAN % 0.6 % Normal [facility] Comment on above: Order Comment: Speci men Type: BLOOD SPECIMENOrdering Facility: [facility] Address: [address] [place] [address] Performed By: #### 5 7021-8 ####[facility] LABORATORYCLIA [id number] [address] IMMATURE GRAN ABS 0.06 k/uL Normal <0.10 [facility] Comment on above: Order Comment: Speci men Type: BLOOD SPECIMENOrdering Facility: [facility] Address: [address] [place] [address] Performed By: #### 5 7021-8 ####[facility] LABORATORYCLIA [id number] [address] Lymphocytes (Bld) [#/Vol] 1.96 10*3/uL Normal 1.00-4.00 [facility] Comment on above: Order Comment: Speci men Type: BLOOD SPECIMENOrdering Facility: [facility] Address: [address] [place] [address] Performed By: #### 5 7021-8 ####[facility] LABORATORYCLIA [id number] [address] Lymphocytes/100 WBC (Bld) 19.0 % Normal [facility] Comment on above: Order Comment: Speci men Type: BLOOD SPECIMENOrdering Facility: [facility] Address: [address] [place] [address] Performed By: #### 5 7021-8 ####[facility] LABORATORYCLIA [id number] [address] STATES [facility] MCH (RBC) [Entitic mass] 28.0 pg Normal 26.0-34.0 [facility] Comment on above: Order Comment: Speci men Type: BLOOD SPECIMENOrdering Facility: [facility] Address: [address] [place] [address] Performed By: #### 5 7021-8 ####[facility] LABORATORYCLIA [id number] [address] STATES OF [facility] MCHC (RBC) [Mass/Vol] 30.3 g/dL Low 30.5-36.0 [facility] Comment on above: Order Comment: Speci men Type: BLOOD SPECIMENOrdering Facility: [facility] Address: [address] [place] [address] Performed By: #### 5 7021-8 ####[facility] LABORATORYCLIA [id number] [address] MCV (RBC) [Entitic vol] 92.5 fL Normal 80.0-100.0 [facility] Comment on above: Order Comment: Speci men Type: BLOOD SPECIMENOrdering Facility: [facility] Address: [address] [place] [address] Performed By: #### 5 7021-8 ####[facility] LABORATORYCLIA [id number] [address] [place] Monocytes (Bld) [#/Vol] 0.53 10*3/uL Normal <0.87 [facility] Comment on above: Order Comment: Speci men Type: BLOOD SPECIMENOrdering Facility: [facility] Address: [address] [place] [address] Performed By: #### 5 7021-8 ####[facility]ORATORYCLIA [id number] [address] Monocytes/100 WBC (Bld) 5.2 % Normal [facility] Comment on above: Order Comment: Speci men Type: BLOOD SPECIMENOrdering Facility: [facility] Address: [address] [place] [address] Performed By: #### 5 7021-8 ####[facility] LABORATORYCLIA [id number] [address] [place] Neutrophils (Bld) [#/Vol] 7.31 10*3/uL Normal 1.45-7.50 [facility] Comment on above: Order Comment: Speci men Type: BLOOD SPECIMENOrdering Facility: [facility] Address: [address] [place] [address] Performed By: #### 5 7021-8 ####[facility]ORATORYCLIA [id number] [address] Neutrophils/100 WBC (Bld) 71.0 % Normal [facility] Comment on above: Order Comment: Speci men Type: BLOOD SPECIMENOrdering Facility: [facility] Address: [address] [place] [address] Performed By: #### 5 7021-8 ####[facility] LABORATORYCLIA [id number] [address] Nucleated RBC (Bld) [#/Vol] 10*3/uL Normal <0.01 [facility] Comment on above: Order Comment: Speci men Type: BLOOD SPECIMENOrdering Facility: [facility] Address: [address] [place] [address] Performed By: #### 5 7021-8 ####[facility]ORATORYCLIA [id number] [address] Nucleated RBC/100 WBC (Bld) [Ratio] 0.0 /100 WBC Normal [facility] Comment on above: Order Comment: Speci men Type: BLOOD SPECIMENOrdering Facility: [facility] Address: [address] [place] [address] Performed By: #### 5 7021-8 ####[facility]ORATORYCLIA [id number] [address] Platelet mean volume (Bld) [Entitic vol] 11.2 fL Normal 9.0-12.7 [facility] Comment on above: Order Comment: Speci men Type: BLOOD SPECIMENOrdering Facility: [facility] Address: [address] [place] [address] Performed By: #### 5 7021-8 ####[facility] LABORATORYCLIA [id number] [address] [place] Platelets (Bld) [#/Vol] 276 10*3/uL Normal 150-400 [facility] Comment on above: Order Comment: Speci men Type: BLOOD SPECIMENOrdering Facility: [facility] Address: [address] [place] [address] Performed By: #### 5 7021-8 ####[facility]ORATORYCLIA [id number] [address] OF [facility] RBC (Bld) [#/Vol] 3.46 10*6/uL Low 4.20-6.00 [facility] Comment on above: Order Comment: Speci men Type: BLOOD SPECIMENOrdering Facility: [facility] Address: [address] [place] [address] Performed By: #### 5 7021-8 ####[facility]ORATORYCLIA [id number] [address] WBC (Bld) [#/Vol] 10.29 10*3/uL Normal 3.70-11.00 [facility] Comment on above: Order Comment: Speci men Type: BLOOD SPECIMENOrdering Facility: [facility] Address: [address] [place] [address] Performed By: #### 5 7021-8 ####[facility] LABORATORYCLIA [id number] [address] NURSING PROGon 07-29-2021 NURSING PROG Normal [facility] THERAPY NTon 07-29-2021 THERAPY NT Normal [facility] aPTT PPPon 07-29-2021 aPTT Coag (PPP) [Time] 59.2 s High 23.0-32.4 [facility] Comment on above: Order Comment: Speci men Type: BLOOD SPECIMENOrdering Facility: [facility] Address: [address] [place] [address] Performed By: #### 1 4979-9 ####[facility] LABORATORYCLIA [id number] [address] [place] ALLIED HEALTHon 07-28-2021 ALLIED HEALTH Normal [facility] Basic metabolic 2000 panelon 07-28-2021 Anion gap [Moles/Vol] 7 mmol/L Low 9-18 [facility] Comment on above: Order Comment: Speci men Type: BLOOD SPECIMENOrdering Facility: [facility] Address: [address] [place] [address] Performed By: #### 1 4338-8, 05752-7, 2777-1, 19668-0 ####[facility] LABORATORYCLIA [id number] [place] [address] [place] Calcium [Mass/Vol] 9.0 mg/dL Normal 8.5-10.2 [facility] Comment on above: Order Comment: Speci men Type: BLOOD SPECIMENOrdering Facility: [facility] Address: [address] [place] [address] Performed By: #### 1 4338-8, 53244-9, 2777-1, 40772-8 ####[facility] LABORATORYCLIA [id number] [place] [address] [place] Chloride [Moles/Vol] 94 mmol/L Low 97-105 [facility] Comment on above: Order Comment: Speci men Type: BLOOD SPECIMENOrdering Facility: [facility] Address: [address] [place] [address] Performed By: #### 1 4338-8, 05344-1, 2777-1, 96831-5 ####[facility] LABORATORYCLIA [id number] [place] [address] [place] CO2 [Moles/Vol] 31 mmol/L High 22-30 [facility] Comment on above: Order Comment: Speci men Type: BLOOD SPECIMENOrdering Facility: [facility] Address: [address] [place] [address] Performed By: #### 1 4338-8, 49576-8, 2777-1, 34873-0 ####[facility] LABORATORYCLIA [id number] [place] [address] [place] Creatinine [Mass/Vol] 0.75 mg/dL Normal 0.73-1.22 [facility] Comment on above: Order Comment: Shira feldman Type: BLOOD SPECIMENOrdering Facility: [facility] Address: [address] [address] Performed By: #### 1 4338-8, 22732-1, 2777-1, 68285-1 ####[facility] LABORATORYCLIA [id number] [address] [place] ESTIMATED GLOMERULAR FILTRATION RATE 98 mL/min/1.73m??? Normal >=60 [facility] Comment on above: Order Comment: Shira feldman Type: BLOOD SPECIMENOrdering Facility: [facility] Address: [address] [address] Result Comment: Luzmaria mated Glomerular Filtration Rate (eGFR) is calculated using the 2020 CKD-EPI creatinine equation. This equation utilizes serum creatinine, sex, and age as parameters. The creatinine assay has traceable calibration to isotope dilution-mass spectrometry. Refer to KDIGO guidelines for clinical interpretation. In patients with unstable renal function, e.g. those with acute kidney injury, the eGFR may not accurately reflect actual GFR. Performed By: #### 1 4338-8, 29428-3, 2777-1, 68886-4 ####[facility] LABORATORYCLIA [id number] [place] [address] [place] Glucose [Mass/Vol] 122 mg/dL High 74-99 [facility] Comment on above: Order Comment: Shira feldman Type: BLOOD SPECIMENOrdering Facility: [facility] Address: [address] [place] [address] Result Comment: The [place] Diabetes Association (ADA) provides guidance for cutoff values for fasting glucose and random glucose. The ADA defines fasting as no caloric intake for at least 8 hours. Fasting plasma glucose results between 100 to 125 mg/dL indicate increased risk for diabetes (prediabetes).Fasting plasma glucose results greater than or equal to 126 mg/dL meet the criteria for diagnosis of diabetes. In the absence of unequivocal hyperglycemia, results should be confirmed by repeat testing. In a patient with classic symptoms of hyperglycemia or hyperglycemic crisis, random plasma glucose results greater than or equal to 200 mg/dL meet the criteria for diagnosis of diabetes.Reference: Standards of Medical Care in Diabetes 2016, [place] [employer] Association. Diabetes Care. 2016.39(Suppl 1). Performed By: #### 1 4338-8, 37526-5, 2777-, 49109-8 ####[facility] LABORATORYCLIA [id number] [place] [address] [place] Potassium [Moles/Vol] 4.0 mmol/L Normal 3.7-5.1 [facility] Comment on above: Order Comment: Speci men Type: BLOOD SPECIMENOrdering Facility: [facility] Address: [address] [place] [address] Performed By: #### 1 4338-8, , 27711-04, 14903-5 ####[facility] LABORATORYCLIA [id number] [address] STATES [place] [facility] Sodium [Moles/Vol] 132 mmol/L Low 136-144 [facility] Comment on above: Order Comment: Speci men Type: BLOOD SPECIMENOrdering Facility: [facility] Address: [address] [place] [address] Performed By: #### 1 4338-8, 75437-9, 2776-05, 33481-2 ####[facility] LABORATORYCLIA [id number] [address] STATES [facility] Urea nitrogen [Mass/Vol] 34 mg/dL High - [facility] Comment on above: Order Comment: Speci men Type: BLOOD SPECIMENOrdering Facility: [facility] Address: [address] [place] [address] Performed By: #### 1 4338-8, 49731-0, 277-, 23735-6 ####[facility] LABORATORYCLIA [id number] [place] [address] [place] CBC W Auto Differential pane l (Bld)on 07-28-2021 Basophils (Bld) [#/Vol] 0.04 10*3/uL Normal <0.11 [facility] Comment on above: Order Comment: Speci men Type: BLOOD SPECIMENOrdering Facility: [facility] Address: [address] [address] Performed By: #### 5 7021-8 ####[facility]ORATORYCLIA [id number] [address] Basophils/100 WBC (Bld) 0.5 % Normal [facility] Comment on above: Order Comment: Speci men Type: BLOOD SPECIMENOrdering Facility: [facility] Address: [address] [place] [address] Performed By: #### 5 7021-8 ####[facility] LABORATORYCLIA [id number] [address] Differential cell count method Nom (Bld) Auto Normal [facility] Comment on above: Order Comment: Speci men Type: BLOOD SPECIMENOrdering Facility: [facility] Address: [address] [place] [address] Performed By: #### 5 7021-8 ####[facility] LABORATORYCLIA [id number] [address] [place] Eosinophils (Bld) [#/Vol] 0.30 10*3/uL Normal <0.46 [facility] Comment on above: Order Comment: Speci men Type: BLOOD SPECIMENOrdering Facility: [facility] Address: [address] [place] [address] Performed By: #### 5 7021-8 ####[facility] LABORATORYCLIA [id number] [address] Eosinophils/100 WBC (Bld) 3.4 % Normal [facility] Comment on above: Order Comment: Speci men Type: BLOOD SPECIMENOrdering Facility: [facility] Address: [address] [place] [address] Performed By: #### 5 7021-8 ####[facility]ORATORYCLIA [id number] [address] [place] Erythrocyte distribution width (RBC) [Ratio] 16.9 % High 11.5-15.0 [facility] Comment on above: Order Comment: Speci men Type: BLOOD SPECIMENOrdering Facility: [facility] Address: [address] [place] [address] Performed By: #### 5 7021-8 ####[facility] LABORATORYCLIA [id number] [address] Hematocrit (Bld) [Volume fraction] 30.3 % Low 39.0-51.0 [facility] Comment on above: Order Comment: Speci men Type: BLOOD SPECIMENOrdering Facility: [facility] Address: [address] [place] [address] Performed By: #### 5 7021-8 ####[facility]ORATORYCLIA [id number] [address] Hemoglobin (Bld) [Mass/Vol] 9.2 g/dL Low 13.0-17.0 [facility] Comment on above: Order Comment: Speci men Type: BLOOD SPECIMENOrdering Facility: [facility] Address: [address] [place] [address] Performed By: #### 5 7021-8 ####[facility] LABORATORYCLIA [id number] [address] IMMATURE GRAN % 0.6 % Normal [facility] Comment on above: Order Comment: Speci men Type: BLOOD SPECIMENOrdering Facility: [facility] Address: [address] [place] [address] Performed By: #### 5 7021-8 ####[facility] LABORATORYCLIA [id number] [address] IMMATURE GRAN ABS 0.05 k/uL Normal <0.10 [facility] Comment on above: Order Comment: Speci men Type: BLOOD SPECIMENOrdering Facility: [facility] Address: [address] [place] [address] Performed By: #### 5 7021-8 ####[facility] LABORATORYCLIA [id number] [place] [address] [place] Lymphocytes (Bld) [#/Vol] 1.68 10*3/uL Normal 1.00-4.00 [facility] Comment on above: Order Comment: Speci men Type: BLOOD SPECIMENOrdering Facility: [facility] Address: [address] [place] [address] Performed By: #### 5 7021-8 ####[facility] LABORATORYCLIA [id number] [address] OF [facility] Lymphocytes/100 WBC (Bld) 19.2 % Normal [facility] Comment on above: Order Comment: Speci men Type: BLOOD SPECIMENOrdering Facility: [facility] Address: [address] [place] [address] Performed By: #### 5 7021-8 ####[facility] LABORATORYCLIA [id number] [address] [place] MCH (RBC) [Entitic mass] 28.4 pg Normal 26.0-34.0 [facility] Comment on above: Order Comment: Speci men Type: BLOOD SPECIMENOrdering Facility: [facility] Address: [address] [place] [address] Performed By: #### 5 7021-8 ####[facility] LABORATORYCLIA [id number] [address] [place] MCHC (RBC) [Mass/Vol] 30.4 g/dL Low 30.5-36.0 [facility] Comment on above: Order Comment: Speci men Type: BLOOD SPECIMENOrdering Facility: [facility] Address: [address] [place] [address] Performed By: #### 5 7021-8 ####[facility] LABORATORYCLIA [id number] [address] MCV (RBC) [Entitic vol] 93.5 fL Normal 80.0-100.0 [facility] Comment on above: Order Comment: Speci men Type: BLOOD SPECIMENOrdering Facility: [facility] Address: [address] [place] [address] Performed By: #### 5 7021-8 ####[facility]ORATORYCLIA [id number] [address] [place] Monocytes (Bld) [#/Vol] 0.58 10*3/uL Normal <0.87 [facility] Comment on above: Order Comment: Speci men Type: BLOOD SPECIMENOrdering Facility: [facility] Address: [address] [place] [address] Performed By: #### 5 7021-8 ####[facility]ATORYCLIA [id number] [address] [place] Monocytes/100 WBC (Bld) 6.6 % Normal [facility] Comment on above: Order Comment: Speci men Type: BLOOD SPECIMENOrdering Facility: [facility] Address: [address] [place] [address] Performed By: #### 5 7021-8 ####[facility] LABORATORYCLIA [id number] [address] [place] Neutrophils (Bld) [#/Vol] 6.11 10*3/uL Normal 1.45-7.50 [facility] Comment on above: Order Comment: Speci men Type: BLOOD SPECIMENOrdering Facility: [facility] Address: [address] [place] [address] Performed By: #### 5 7021-8 ####[facility]ORYCLIA [id number] [address] [place] Neutrophils/100 WBC (Bld) 69.7 % Normal [facility] Comment on above: Order Comment: Speci men Type: BLOOD SPECIMENOrdering Facility: [facility] Address: [address] [place] [address] Performed By: #### 5 7021-8 ####[facility]ATORYCLIA [id number] [place] [address] [place] Nucleated RBC (Bld) [#/Vol] 10*3/uL Normal <0.01 [facility] Comment on above: Order Comment: Speci men Type: BLOOD SPECIMENOrdering Facility: [facility] Address: [address] [place] [address] Performed By: #### 5 7021-8 ####[facility] LABORATORYCLIA [id number] [address] Nucleated RBC/100 WBC (Bld) [Ratio] 0.0 /100 WBC Normal [facility] Comment on above: Order Comment: Speci men Type: BLOOD SPECIMENOrdering Facility: [facility] Address: [address] [place] [address] Performed By: #### 5 7021-8 ####[facility] LABORATORYCLIA [id number] [address] [place] Platelet mean volume (Bld) [Entitic vol] 11.3 fL Normal 9.0-12.7 [facility] Comment on above: Order Comment: Speci men Type: BLOOD SPECIMENOrdering Facility: [facility] Address: [address] [place] [address] Performed By: #### 5 7021-8 ####[facility]ORATORYCLIA [id number] [address] [place] Platelets (Bld) [#/Vol] 238 10*3/uL Normal 150-400 [facility] Comment on above: Order Comment: Speci men Type: BLOOD SPECIMENOrdering Facility: [facility] Address: [address] [place], [place] [address] Performed By: #### 5 7021-8 ####[facility] LABORATORYCLIA [id number] [address] [place] RBC (Bld) [#/Vol] 3.24 10*6/uL Low 4.20-6.00 [facility] Comment on above: Order Comment: Speci men Type: BLOOD SPECIMENOrdering Facility: [facility] Address: [address] [place] [address] Performed By: #### 5 7021-8 ####[facility]ORATORYCLIA [id number] [address] [place] WBC (Bld) [#/Vol] 8.76 10*3/uL Normal 3.70-11.00 [facility] Comment on above: Order Comment: Speci men Type: BLOOD SPECIMENOrdering Facility: [facility] Address: [address] [place] [address] Performed By: #### 5 7021-8 ####[facility] LABORATORYCLIA [id number] [address] [place] MRI BRAIN WO/W IVCONon 07-28 MRI BRAIN WO/W IVCON Normal [facility] Magnesium SerPl-mCncon 07-28 Magnesium [Mass/Vol] 2.5 mg/dL High 1.7-2.3 [facility] Comment on above: Order Comment: Speci men Type: BLOOD SPECIMENOrdering Facility: [facility] Address: [address] [place] [address] Performed By: #### 1 4338-8, 23921-2, 2777-1, 36474-0 ####[facility] LABORATORYCLIA [id number] [address] [place] [facility] NURSING PROGon 07-28-2021 NURSING PROG Normal [facility] NURSING PROG Normal [facility] Phosphate SerPl-mCncon 07-28 Phosphate [Mass/Vol] 2.8 mg/dL Normal 2.7-4.8 [facility] Comment on above: Order Comment: Speci men Type: BLOOD SPECIMENOrdering Facility: [facility] Address: [address] [place] [address] Performed By: #### 1 4338-8, 64719-2, 2777-1, 74507-2 ####[facility]ORATORYCLIA [id number] [address] [place] Prealbumin [Mass/Vol]on 07-06 Prealbumin Nephelometry [Mass/Vol] 25 mg/dL Normal 17-36 [facility] Comment on above: Order Comment: Speci men Type: BLOOD SPECIMENOrdering Facility: [facility] Address: [address] [place] [address] Performed By: #### 1 4338-8, 32454-0, 2777-1, 13876-4 ####[facility]ORATORYCLIA [id number] [address] [place] [facility] aPTT PPPon 07-28-2021 aPTT Coag (PPP) [Time] 53.0 s High 23.0-32.4 [facility] Comment on above: Order Comment: Speci men Type: BLOOD SPECIMENOrdering Facility: [facility] Address: [address] [place] [address] Performed By: #### 1 4979-9 ####[facility] [id number] [address] aPTT Coag (PPP) [Time] 57.2 s High 23.0-32.4 [facility] Comment on above: Order Comment: Speci men Type: BLOOD SPECIMENOrdering Facility: [facility] Address: [address] [place] [address] Performed By: #### 1 4979-9 ####[facility]ITALCLIA [id number] [address] Bacteria CSF Culton 07-28-19 Bacteria identified Cx Nom (CSF) CULTURE, CSF: No growth 14 days GRAM STAIN: No organisms seen Rare Polymorphonuclear leukocytes Rare Red Blood Cells Gram stain performed on cytospun specimen. Normal [facility] Comment on above: Performed By: #### 6 06-4 ####[facility] LABORATORYCLIA [id number] [address] [place] [facility] Bacteria Spec Resp Culton Bacteria identified Respiratory culture Nom (Unsp spec) CULTURE, RESPIRATORY: Rare Normal respiratory chris present GRAM STAIN: No organisms seen Rare Polymorphonuclear leukocytes Rare Epithelial cells Normal [facility] Comment on above: Performed By: #### 3 2355-0 ####[facility] LABORATORYCLIA [id number] [address] [facility] CASE MANAGEMon 07-27-2021 CASE MANAGEM Normal [facility] CBC W Auto Differential pane l (Bld)on 07-27-2021 Basophils (Bld) [#/Vol] 0.04 10*3/uL Normal <0.11 [facility] Comment on above: Order Comment: Speci men Type: BLOOD SPECIMENOrdering Facility: [facility] Address: [address] [place] [address] Performed By: #### 5 7021-8 ####[facility]ORATORYCLIA [id number] [address] Basophils/100 WBC (Bld) 0.4 % Normal [facility] Comment on above: Order Comment: Speci men Type: BLOOD SPECIMENOrdering Facility: [facility] Address: [address] [place] [address] Performed By: #### 5 7021-8 ####[facility]ORATORYCLIA [id number] [address] Differential cell count method Nom (Bld) Auto Normal [facility] Comment on above: Order Comment: Speci men Type: BLOOD SPECIMENOrdering Facility: [facility] Address: [address] [place] [address] Performed By: #### 5 7021-8 ####[facility]ORATORYCLIA [id number] [address] [place] Eosinophils (Bld) [#/Vol] 0.50 10*3/uL High <0.46 [facility] Comment on above: Order Comment: Speci men Type: BLOOD SPECIMENOrdering Facility: [facility] Address: [address] [place] [address] Performed By: #### 5 7021-8 ####[facility]ORATORYCLIA [id number] [address] Eosinophils/100 WBC (Bld) 5.2 % Normal [facility] Comment on above: Order Comment: Speci men Type: BLOOD SPECIMENOrdering Facility: [facility] Address: [address] [place] [address] Performed By: #### 5 7021-8 ####[facility]ORATORYCLIA [id number] [address] Erythrocyte distribution width (RBC) [Ratio] 16.8 % High 11.5-15.0 [facility] Comment on above: Order Comment: Speci men Type: BLOOD SPECIMENOrdering Facility: [facility] Address: [address] [place] [address] Performed By: #### 5 7021-8 ####[facility]ORATORYCLIA [id number] [address] Hematocrit (Bld) [Volume fraction] 29.8 % Low 39.0-51.0 [facility] Comment on above: Order Comment: Speci men Type: BLOOD SPECIMENOrdering Facility: [facility] Address: [address] [place] [address] Performed By: #### 5 7021-8 ####[facility]ORATORYCLIA [id number] [address] Hemoglobin (Bld) [Mass/Vol] 9.0 g/dL Low 13.0-17.0 [facility] Comment on above: Order Comment: Speci men Type: BLOOD SPECIMENOrdering Facility: [facility] Address: [address] [place] [address] Performed By: #### 5 7021-8 ####[facility]ORATORYCLIA [id number] [address] IMMATURE GRAN % 0.6 % Normal [facility] Comment on above: Order Comment: Speci men Type: BLOOD SPECIMENOrdering Facility: [facility] Address: [address] [place] [address] Performed By: #### 5 7021-8 ####[facility]ORATORYCLIA [id number] [address] IMMATURE GRAN ABS 0.06 k/uL Normal <0.10 [facility] Comment on above: Order Comment: Speci men Type: BLOOD SPECIMENOrdering Facility: [facility] Address: [address] [place] [address] Performed By: #### 5 7021-8 ####[facility]ORATORYCLIA [id number] [address] [place] Lymphocytes (Bld) [#/Vol] 1.73 10*3/uL Normal 1.00-4.00 [facility] Comment on above: Order Comment: Speci men Type: BLOOD SPECIMENOrdering Facility: [facility] Address: [address] [place] [address] Performed By: #### 5 7021-8 ####[facility]ORATORYCLIA [id number] [address] Lymphocytes/100 WBC (Bld) 17.9 % Normal [facility] Comment on above: Order Comment: Speci men Type: BLOOD SPECIMENOrdering Facility: [facility] Address: [address] [place] [address] Performed By: #### 5 7021-8 ####[facility]ORATORYCLIA [id number] [address] [place] MCH (RBC) [Entitic mass] 28.1 pg Normal 26.0-34.0 [facility] Comment on above: Order Comment: Speci men Type: BLOOD SPECIMENOrdering Facility: [facility] Address: [address] [place] [address] Performed By: #### 5 7021-8 ####[facility]ORATORYCLIA [id number] [address] [place] MCHC (RBC) [Mass/Vol] 30.2 g/dL Low 30.5-36.0 [facility] Comment on above: Order Comment: Speci men Type: BLOOD SPECIMENOrdering Facility: [facility] Address: [address] [place] [address] Performed By: #### 5 7021-8 ####[facility] LABORATORYCLIA [id number] [place] [address] [place] MCV (RBC) [Entitic vol] 93.1 fL Normal 80.0-100.0 [facility] Comment on above: Order Comment: Speci men Type: BLOOD SPECIMENOrdering Facility: [facility] Address: [address] [place] [address] Performed By: #### 5 7021-8 ####[facility]ORATORYCLIA [id number] [place] [address] [place] Monocytes (Bld) [#/Vol] 0.59 10*3/uL Normal <0.87 [facility] Comment on above: Order Comment: Speci men Type: BLOOD SPECIMENOrdering Facility: [facility] Address: [address] [place] [address] Performed By: #### 5 7021-8 ####[facility]ORATORYCLIA [id number] [address] [place] Monocytes/100 WBC (Bld) 6.1 % Normal [facility] Comment on above: Order Comment: Speci men Type: BLOOD SPECIMENOrdering Facility: [facility] Address: [address] [place] [address] Performed By: #### 5 7021-8 ####[facility]ORATORYCLIA [id number] [address] [place] Neutrophils (Bld) [#/Vol] 6.75 10*3/uL Normal 1.45-7.50 [facility] Comment on above: Order Comment: Speci men Type: BLOOD SPECIMENOrdering Facility: [facility] Address: [address] [place] [address] Performed By: #### 5 7021-8 ####[facility]ORATORYCLIA [id number] [address] [place] Neutrophils/100 WBC (Bld) 69.8 % Normal [facility] Comment on above: Order Comment: Speci men Type: BLOOD SPECIMENOrdering Facility: [facility] Address: [address] [place] [address] Performed By: #### 5 7021-8 ####[facility]ORATORYCLIA [id number] [address] Nucleated RBC (Bld) [#/Vol] 10*3/uL Normal <0.01 [facility] Comment on above: Order Comment: Speci men Type: BLOOD SPECIMENOrdering Facility: [facility] Address: [address] [place] [address] Performed By: #### 5 7021-8 ####[facility]ORATORYCLIA [id number] [address] OF [facility] Nucleated RBC/100 WBC (Bld) [Ratio] 0.0 /100 WBC Normal [facility] Comment on above: Order Comment: Speci men Type: BLOOD SPECIMENOrdering Facility: [facility] Address: [address] [place] [address] Performed By: #### 5 7021-8 ####[facility]ORATORYCLIA [id number] [address] Platelet mean volume (Bld) [Entitic vol] 11.3 fL Normal 9.0-12.7 [facility] Comment on above: Order Comment: Speci men Type: BLOOD SPECIMENOrdering Facility: [facility] Address: [address] [place] [address] Performed By: #### 5 7021-8 ####[facility]ORATORYCLIA [id number] [address] [place] Platelets (Bld) [#/Vol] 227 10*3/uL Normal 150-400 [facility] Comment on above: Order Comment: Speci men Type: BLOOD SPECIMENOrdering Facility: [facility] Address: [address] [place] [address] Performed By: #### 5 7021-8 ####[facility]ORATORYCLIA [id number] [address] [place] RBC (Bld) [#/Vol] 3.20 10*6/uL Low 4.20-6.00 [facility] Comment on above: Order Comment: Speci men Type: BLOOD SPECIMENOrdering Facility: [facility] Address: [address] [place] [address] Performed By: #### 5 7021-8 ####[facility]ORATORYCLIA [id number] [place] [address] [place] WBC (Bld) [#/Vol] 9.67 10*3/uL Normal 3.70-11.00 [facility] Comment on above: Order Comment: Speci men Type: BLOOD SPECIMENOrdering Facility: [facility] Address: [address] [place] [address] Performed By: #### 5 7021-8 ####[facility]ORATORYCLIA [id number] [address] [place] [facility] CONSULT PROGon 07-27-2021 CONSULT PROG Normal [facility] CSF MANUAL DIFFon 07-27-2021 DIF TTL, CSF 100 cells counted Normal [facility] Comment on above: Order Comment: Speci men Type: CEREBROSPINAL FLUIDOrdering Facility: [facility] Address: [address] [place] [address] Performed By: #### L [id number], 27425-4, [id number] ####[facility] LABORATORYCLIA [id number] [place] [address] [place] LYMPH%, CSF 75 % Normal 50-90 [facility] Comment on above: Order Comment: Speci men Type: CEREBROSPINAL FLUIDOrdering Facility: [facility] Address: [address] [place] [address] Performed By: #### L [id number], 42116-0, [id number] ####[facility]ORATORYCLIA [id number] [place] [address] [place] MONO%, CSF 22 % Normal 10-50 [facility] Comment on above: Order Comment: Speci men Type: CEREBROSPINAL FLUIDOrdering Facility: [facility] Address: [address] [place] [address] Performed By: #### L [id number], 83534-5, [id number] ####[facility]ORATORYCLIA [id number] [place] [address] [place] NEUT%, CSF 2 % Normal 0-3 [facility] Comment on above: Order Comment: Speci men Type: CEREBROSPINAL FLUIDOrdering Facility: [facility] Address: [address] [place] [address] Performed By: #### L [id number], 54636-5, [id number] ####[facility]ORATORYCLIA [id number] [address] [place] OTHER CL%, CSF 1 % Normal [facility] Comment on above: Order Comment: Speci men Type: CEREBROSPINAL FLUIDOrdering Facility: [facility] Address: [address] [place] [address] Result Comment: Path ologist review of microscopy results to follow Performed By: #### L [id number], 71168-0, [id number] ####[facility] LABORATORYCLIA [id number] [address] CSF PATHOLOGIST INTERP (LAB REFLEX ORDER-NO BILL)on 07-27-2021 CSF STAFF REVIEW Negative [facility] Comment on above: Order Comment: Speci men Type: CEREBROSPINAL FLUIDOrdering Facility: [facility] Address: [address] [place] [address] Performed By: #### L [id number], 73502-8, [id number] ####[facility]ORATORYCLIA [id number] [address] Pathologist name Reviewed by Amador Stevens MD [facility] Comment on above: Order Comment: Speci men Type: CEREBROSPINAL FLUIDOrdering Facility: [facility] Address: [address] [place] [address] Performed By: #### L [id number], 12108-1, [id number] ####[facility]ORATORYCLIA [id number] [address] Cell count panel (CSF)on Clarity (CSF) Clear Normal Clear [facility] Comment on above: Order Comment: Speci men Type: CEREBROSPINAL FLUIDOrdering Facility: [facility] Address: [address] [place] [address] Performed By: #### L [id number], 49766-4, [id number] ####[facility]ORYCLIA [id number] [address] Clarity (Unsp spec) Not Indicated Normal Clear [facility] Comment on above: Order Comment: Speci men Type: CEREBROSPINAL FLUIDOrdering Facility: [facility] Address: [address] [place] [address] Performed By: #### L [id number], 59435-7, [id number] ####[facility]ORYCLIA [id number] [address] Color (CSF) Colorless Normal Colorless [facility] Comment on above: Order Comment: Speci men Type: CEREBROSPINAL FLUIDOrdering Facility: [facility] Address: [address] [place] [address] Performed By: #### L [id number], 21450-4, [id number] ####[facility]ORYCLIA [id number] [address] Color (Spun CSF) Not Indicated Normal Colorless [facility] Comment on above: Order Comment: Speci men Type: CEREBROSPINAL FLUIDOrdering Facility: [facility] Address: [address] [place] [place] [address] Performed By: #### L [id number], 65603-1, [id number] ####[facility]ORYCLIA [id number] [address] CSF TUBE NUMBER [employer] Normal [facility] Comment on above: Order Comment: Speci men Type: CEREBROSPINAL FLUIDOrdering Facility: [facility] Address: [address] [place] [address] Performed By: #### L [id number], 79045-1, [id number] ####[facility]ORYCLIA [id number] [address] RBC Manual cnt (CSF) [#/Vol] 39 cells/uL High 0-5 [facility] Comment on above: Order Comment: Speci men Type: CEREBROSPINAL FLUIDOrdering Facility: [facility] Address: [address] [place] [address] Performed By: #### L CL5390, 80062-3, [id number] ####[facility]ATORYCLIA [id number] [address] WBC Manual cnt (CSF) [#/Vol] 14 cells/uL High 0-5 [facility] Comment on above: Order Comment: Speci men Type: CEREBROSPINAL FLUIDOrdering Facility: [facility] Address: [address] [place] [address] Performed By: #### L [id number], 38328-5, [id number] ####[facility]ORATORYCLIA [id number] [address] Glucose CSF-[facility] Glucose (CSF) [Mass/Vol] 64 mg/dL Normal 40-70 [facility] Comment on above: Order Comment: Speci men Type: CEREBROSPINAL FLUIDOrdering Facility: [facility] Address: [address] [place] [address] Result Comment: Lumb ar CSF glucose values of healthy patients are approximately 60% of the plasma values and must always be compared with a concurrently measured plasma value for adequate clinical interpretation.References: 1. Glucose HK (GLUC3) [package insert V 12.0 [place]]. [employer], [place], [place]. September 2015. 2. Teresa HGarfield, He, H. (2015). Chapter 7: Glucose and Lactate. FGarfield Alcocer al.(eds.), Cerebrospinal Fluid in Clinical Neurology. [employer]: [employer]. Performed By: #### 2 342-4, 2880-3 ####[facility]ORATORYCLIA [id number] [address] [place] NUTRITIONon 07-27-2021 NUTRITION Normal [facility] Prot CSF-mCncon 07-27-2021 Protein (CSF) [Mass/Vol] 58 mg/dL High 15-45 [facility] Comment on above: Order Comment: Speci men Type: CEREBROSPINAL FLUIDOrdering Facility: [facility] Address: [address] [place] [address] Performed By: #### 2 342-4, 2880-3 ####[facility]ORATORYCLIA [id number] [address] aPTT PPPon 07-27-2021 aPTT Coag (PPP) [Time] 68.4 s High 23.0-32.4 [facility] Comment on above: Order Comment: Speci men Type: BLOOD SPECIMENOrdering Facility: [facility] Address: [address] [place] [address] Performed By: #### 1 4979-9 ####[facility] LABORATORYCLIA [id number] [address] aPTT Coag (PPP) [Time] 51.3 s High 23.0-32.4 [facility] Comment on above: Order Comment: Speci men Type: BLOOD SPECIMENOrdering Facility: [facility] Address: [address] [place] [address] Performed By: #### 1 4979-9 ####[facility] LABORATORYCLIA [id number] ALLIED HEALTHon 07-26-2021 ALLIED HEALTH HNO ID: [id number] Author: Stephanie Maldonado, start up specialist Service: Radiology Author Type: Stripper Soft Plastic Type: Allied Health Filed: 07/26/2021 4:10 PM Note Text: Spoke with nurse. Pt getting new EVD today. Try tomorrow. Normal [facility] Bacteria CSF Culton 07-27-19 Bacteria identified Cx Nom (CSF) Abnormal [facility] Comment on above: Performed By: #### 6 06-4 ####[facility] [facility]ORATORYCLIA [id number] [address] Basic metabolic 2000 panelon 07-26-2021 Anion gap [Moles/Vol] 6 mmol/L Low 9-18 [facility] Comment on above: Order Comment: Speci men Type: BLOOD SPECIMENOrdering Facility: [facility] Address: [address] [place] [address] Performed By: #### 2 4321-2 ####[facility] LABORATORYCLIA [id number] [place] [address] [place] Calcium [Mass/Vol] 9.2 mg/dL Normal 8.5-10.2 [facility] Comment on above: Order Comment: Speci men Type: BLOOD SPECIMENOrdering Facility: [facility] Address: [address] [place] [address] Performed By: #### 2 4321-2 ####[facility] LABORATORYCLIA [id number] [place] [address] [place] Chloride [Moles/Vol] 99 mmol/L Normal 97-105 [facility] Comment on above: Order Comment: Speci men Type: BLOOD SPECIMENOrdering Facility: [facility] Address: [address] [place] [address] Performed By: #### 2 4321-2 ####[facility] LABORATORYCLIA [id number] [place] [address] [place] CO2 [Moles/Vol] 32 mmol/L High 22-30 [facility] Comment on above: Order Comment: Speci men Type: BLOOD SPECIMENOrdering Facility: [facility] Address: [address] [place] [address] Performed By: #### 2 4321-2 ####[facility] LABORATORYCLIA [id number] [place] [address] [place] Creatinine [Mass/Vol] 0.74 mg/dL Normal 0.73-1.22 [facility] Comment on above: Order Comment: Speci men Type: BLOOD SPECIMENOrdering Facility: [facility] Address: [address] [place] [address] Performed By: #### 2 4321-2 ####[facility] LABORATORYCLIA [id number] [place] [address] [place] ESTIMATED GLOMERULAR FILTRATION RATE 98 mL/min/1.73m??? Normal >=60 [facility] Comment on above: Order Comment: Johncara feldman Type: BLOOD SPECIMENOrdering Facility: [facility] Address: [address] [place] [address] Result Comment: Luzmaria mated Glomerular Filtration Rate (eGFR) is calculated using the 2020 CKD-EPI creatinine equation. This equation utilizes serum creatinine, sex, and age as parameters. The creatinine assay has traceable calibration to isotope dilution-mass spectrometry. Refer to KDIGO guidelines for clinical interpretation. In patients with unstable renal function, e.g. those with acute kidney injury, the eGFR may not accurately reflect actual GFR. Performed By: #### 2 4321-2 ####[facility] HOSPITALIA [id number] [place] [address] [place] Glucose [Mass/Vol] 126 mg/dL High 74-99 [facility] Comment on above: Order Comment: Speccara feldman Type: BLOOD SPECIMENOrdering Facility: [facility] Address: [address] [place] [address] Result Comment: The [place] Diabetes Association (ADA) provides guidance for cutoff values for fasting glucose and random glucose. The ADA defines fasting as no caloric intake for at least 8 hours. Fasting plasma glucose results between 100 to 125 mg/dL indicate increased risk for diabetes (prediabetes).Fasting plasma glucose results greater than or equal to 126 mg/dL meet the criteria for diagnosis of diabetes. In the absence of unequivocal hyperglycemia, results should be confirmed by repeat testing. In a patient with classic symptoms of hyperglycemia or hyperglycemic crisis, random plasma glucose results greater than or equal to 200 mg/dL meet the criteria for diagnosis of diabetes.Reference: Standards of Medical Care in Diabetes 2016, [place] Diabetes Association. Diabetes Care. 2016.39(Suppl 1). Performed By: #### 2 4321-2 ####[facility] LABORATORYCLIA [id number] [place] [id number] [place] Potassium [Moles/Vol] 4.2 mmol/L Normal 3.7-5.1 [facility] Comment on above: Order Comment: Speci men Type: BLOOD SPECIMENOrdering Facility: [facility] Address: [address] [place] [address] Performed By: #### 2 4321-2 ####[facility] LABORATORYCLIA [id number] [address] STATES OF [facility] Sodium [Moles/Vol] 137 mmol/L Normal 136-144 [facility] Comment on above: Order Comment: Speci men Type: BLOOD SPECIMENOrdering Facility: [facility] Address: [address] [place] [address] Performed By: #### 2 4321-2 ####[facility] LABORATORYCLIA [id number] [address] STATES [facility] Urea nitrogen [Mass/Vol] 36 mg/dL High 9-24 [facility] Comment on above: Order Comment: Speci men Type: BLOOD SPECIMENOrdering Facility: [facility] Address: [address] [place] [address] Performed By: #### 2 4321-2 ####[facility] LABORATORYCLIA [id number] [address] CBC W Auto Differential pane l (Bld)on 07-26-2021 Basophils (Bld) [#/Vol] 0.04 10*3/uL Normal <0.11 [facility] Comment on above: Order Comment: Speci men Type: BLOOD SPECIMENOrdering Facility: [facility] Address: [address] [place] [address] Performed By: #### 5 7021-8 ####[facility] LABORATORYCLIA [id number] [address] STATES [facility] Basophils/100 WBC (Bld) 0.4 % Normal [facility] Comment on above: Order Comment: Speci men Type: BLOOD SPECIMENOrdering Facility: [facility] Address: [address] [place] [address] Performed By: #### 5 7021-8 ####[facility]ORATORYCLIA [id number] [address] [place] Differential cell count method Nom (Bld) Auto Normal [facility] Comment on above: Order Comment: Speci men Type: BLOOD SPECIMENOrdering Facility: [facility] Address: [address] [place] [address] Performed By: #### 5 7021-8 ####[facility] LABORATORYCLIA [id number] [place] [address] [place] Eosinophils (Bld) [#/Vol] 0.63 10*3/uL High <0.46 [facility] Comment on above: Order Comment: Speci men Type: BLOOD SPECIMENOrdering Facility: [facility] Address: [address] [place] [address] Performed By: #### 5 7021-8 ####[facility] LABORATORYCLIA [id number] [address] Eosinophils/100 WBC (Bld) 5.8 % Normal [facility] Comment on above: Order Comment: Speci men Type: BLOOD SPECIMENOrdering Facility: [facility] Address: [address] [place] [address] Performed By: #### 5 7021-8 ####[facility] LABORATORYCLIA [id number] [address] [place] Erythrocyte distribution width (RBC) [Ratio] 16.8 % High 11.5-15.0 [facility] Comment on above: Order Comment: Speci men Type: BLOOD SPECIMENOrdering Facility: [facility] Address: [address] [place] [address] Performed By: #### 5 7021-8 ####[facility] LABORATORYCLIA [id number] [address] [place] Hematocrit (Bld) [Volume fraction] 31.2 % Low 39.0-51.0 [facility] Comment on above: Order Comment: Speci men Type: BLOOD SPECIMENOrdering Facility: [facility] Address: [address] [place] [address] Performed By: #### 5 7021-8 ####[facility] LABORATORYCLIA [id number] [address] Hemoglobin (Bld) [Mass/Vol] 9.1 g/dL Low 13.0-17.0 [facility] Comment on above: Order Comment: Speci men Type: BLOOD SPECIMENOrdering Facility: [facility] Address: [address] [place] [address] Performed By: #### 5 7021-8 ####[facility] LABORATORYCLIA [id number] [address] IMMATURE GRAN % 0.6 % Normal [facility] Comment on above: Order Comment: Speci men Type: BLOOD SPECIMENOrdering Facility: [facility] Address: [address] [place] [address] Performed By: #### 5 7021-8 ####[facility] LABORATORYCLIA [id number] [address] IMMATURE GRAN ABS 0.07 k/uL Normal <0.10 [facility] Comment on above: Order Comment: Speci men Type: BLOOD SPECIMENOrdering Facility: [facility] Address: [address] [place] [address] Performed By: #### 5 7021-8 ####[facility] LABORATORYCLIA [id number] [address] [place] Lymphocytes (Bld) [#/Vol] 2.16 10*3/uL Normal 1.00-4.00 [facility] Comment on above: Order Comment: Speci men Type: BLOOD SPECIMENOrdering Facility: [facility] Address: [address] [place] [address] Performed By: #### 5 7021-8 ####[facility] LABORATORYCLIA [id number] [address] Lymphocytes/100 WBC (Bld) 20.0 % Normal [facility] Comment on above: Order Comment: Speci men Type: BLOOD SPECIMENOrdering Facility: [facility] Address: [address] [place] [address] Performed By: #### 5 7021-8 ####[facility] LABORATORYCLIA [id number] [address] MCH (RBC) [Entitic mass] 27.7 pg Normal 26.0-34.0 [facility] Comment on above: Order Comment: Speci men Type: BLOOD SPECIMENOrdering Facility: [facility] Address: [address] [place] [address] Performed By: #### 5 7021-8 ####[facility] LABORATORYCLIA [id number] [address] MCHC (RBC) [Mass/Vol] 29.2 g/dL Low 30.5-36.0 [facility] Comment on above: Order Comment: Speci men Type: BLOOD SPECIMENOrdering Facility: [facility] Address: [address] [place] [address] Performed By: #### 5 7021-8 ####[facility] LABORATORYCLIA [id number] [address] STATES [facility] MCV (RBC) [Entitic vol] 95.1 fL Normal 80.0-100.0 [facility] Comment on above: Order Comment: Speci men Type: BLOOD SPECIMENOrdering Facility: [facility] Address: [address] [place] [address] Performed By: #### 5 7021-8 ####[facility] LABORATORYCLIA [id number] [address] Monocytes (Bld) [#/Vol] 0.63 10*3/uL Normal <0.87 [facility] Comment on above: Order Comment: Speci men Type: BLOOD SPECIMENOrdering Facility: [facility] Address: [address] [place] [address] Performed By: #### 5 7021-8 ####[facility] LABORATORYCLIA [id number] [place] [address] [place] Monocytes/100 WBC (Bld) 5.8 % Normal [facility] Comment on above: Order Comment: Speci men Type: BLOOD SPECIMENOrdering Facility: [facility] Address: [address] [place] [address] Performed By: #### 5 7021-8 ####[facility] LABORATORYCLIA [id number] [place] [address] [place] Neutrophils (Bld) [#/Vol] 7.25 10*3/uL Normal 1.45-7.50 [facility] Comment on above: Order Comment: Speci men Type: BLOOD SPECIMENOrdering Facility: [facility] Address: [address] [place] [address] Performed By: #### 5 7021-8 ####[facility] LABORATORYCLIA [id number] [address] [place] Neutrophils/100 WBC (Bld) 67.4 % Normal [facility] Comment on above: Order Comment: Speci men Type: BLOOD SPECIMENOrdering Facility: [facility] Address: [address] [place] [address] Performed By: #### 5 7021-8 ####[facility]ORATORYCLIA [id number] [address] [place] Nucleated RBC (Bld) [#/Vol] 10*3/uL Normal <0.01 [facility] Comment on above: Order Comment: Speci men Type: BLOOD SPECIMENOrdering Facility: [facility] Address: [address] [place] [address] Performed By: #### 5 7021-8 ####[facility] LABORATORYCLIA [id number] [address] [place] Nucleated RBC/100 WBC (Bld) [Ratio] 0.0 /100 WBC Normal [facility] Comment on above: Order Comment: Speci men Type: BLOOD SPECIMENOrdering Facility: [facility] Address: [address] [place] [address] Performed By: #### 5 7021-8 ####[facility] LABORATORYCLIA [id number] [address] [place] Platelet mean volume (Bld) [Entitic vol] 11.2 fL Normal 9.0-12.7 [facility] Comment on above: Order Comment: Speci men Type: BLOOD SPECIMENOrdering Facility: [facility] Address: [address] [place] [address] Performed By: #### 5 7021-8 ####[facility] LABORATORYCLIA [id number] [place] [address] [place] Platelets (Bld) [#/Vol] 245 10*3/uL Normal 150-400 [facility] Comment on above: Order Comment: Speci men Type: BLOOD SPECIMENOrdering Facility: [facility] Address: [address] [place] [address] Performed By: #### 5 7021-8 ####[facility] LABORATORYCLIA [id number] [place] [address] [place] RBC (Bld) [#/Vol] 3.28 10*6/uL Low 4.20-6.00 [facility] Comment on above: Order Comment: Speci men Type: BLOOD SPECIMENOrdering Facility: [facility] Address: [address] [place] [address] Performed By: #### 5 7021-8 ####[facility] LABORATORYCLIA [id number] [address] [place] WBC (Bld) [#/Vol] 10.78 10*3/uL Normal 3.70-11.00 [facility] Comment on above: Order Comment: Speci men Type: BLOOD SPECIMENOrdering Facility: [facility] Address: [address] [place] [address] Performed By: #### 5 7021-8 ####[facility] LABORATORYCLIA [id number] [address] [place] CSF MANUAL DIFFon 07-26-2021 DIF TTL, CSF 100 cells counted Normal [facility] Comment on above: Order Comment: Speci men Type: CEREBROSPINAL FLUIDOrdering Facility: [facility] Address: [address] [place] [address] Performed By: #### 3 4563-7, [id number], [id number] ####[facility] LABORATORYCLIA [id number] [place] [address] [place] LYMPH%, CSF 26 % Low 50-90 [facility] Comment on above: Order Comment: Speci men Type: CEREBROSPINAL FLUIDOrdering Facility: [facility] Address: [address] [place] [address] Performed By: #### 3 4563-7, [id number], [id number] ####[facility]ORATORYCLIA [id number] [place] [address] [place] MACRO%, CSF 10 % High <1 [facility] Comment on above: Order Comment: Speci men Type: CEREBROSPINAL FLUIDOrdering Facility: [facility] Address: [address] [place] [address] Performed By: #### 3 4563-7, [id number], [id number] ####[facility]ORATORYCLIA [id number] [address] [place] MONO%, CSF 20 % Normal 10-50 [facility] Comment on above: Order Comment: Speci men Type: CEREBROSPINAL FLUIDOrdering Facility: [facility] Address: [address] [place] [address] Performed By: #### 3 4563-7, [id number], [id number] ####[facility]ORATORYCLIA [id number] [address] [place] NEUT%, CSF 40 % High 0-3 [facility] Comment on above: Order Comment: Speci men Type: CEREBROSPINAL FLUIDOrdering Facility: [facility] Address: [facility] [place] [address] Performed By: #### 3 4563-7, [id number], [id number] ####[facility] LABORATORYCLIA [id number] [address] [place] OTHER CL%, CSF 2 % Normal [facility] Comment on above: Order Comment: Speci men Type: CEREBROSPINAL FLUIDOrdering Facility: [facility] Address: [address] [place] [address] Result Comment: Path review to follow. Performed By: #### 3 4563-7, [id number], [id number] ####[facility] LABORATORYCLIA [id number] [address] [place] REAC LYMPH %, CSF 2 % Normal [facility] Comment on above: Order Comment: Speci men Type: CEREBROSPINAL FLUIDOrdering Facility: [facility] Address: [address] [place] [address] Performed By: #### 3 4563-7, [id number], [id number] ####[facility] LABORATORYCLIA [id number] [address] CSF PATHOLOGIST INTERP (LAB REFLEX ORDER-NO BILL)on 07-26-2021 CSF STAFF REVIEW Negative for maligna nt cells. Rare bacteria present, cocci in pairs and chains. Correlation with CSF cultures is recommended. Normal [facility] Comment on above: Order Comment: Speci men Type: CEREBROSPINAL FLUIDOrdering Facility: [facility] Address: [address] [place] [address] Performed By: #### 3 4563-7, [id number], [id number] ####[facility]ORATORYCLIA [id number] [address] Pathologist name Reviewed by Amador Stevens MD [facility] Comment on above: Order Comment: Speci men Type: CEREBROSPINAL FLUIDOrdering Facility: [facility] Address: [address] [place] [address] Performed By: #### 3 4563-7, [id number], [id number] ####[facility]ORATORYCLIA [id number] [address] Cell count panel (CSF)on Clarity (CSF) Slightly Cloudy Abnormal Clear [facility] Comment on above: Order Comment: Speci men Type: CEREBROSPINAL FLUIDOrdering Facility: [facility] Address: [address] [place] [address] Performed By: #### 3 4563-7, [id number], [id number] ####[facility] LABORATORYCLIA [id number] [address] Clarity (Unsp spec) Clear Normal Clear [facility] Comment on above: Order Comment: Speci men Type: CEREBROSPINAL FLUIDOrdering Facility: [facility] Address: [address] [place] [address] Performed By: #### 3 4563-7, [id number], [id number] ####[facility] LABORATORYCLIA [id number] [address] Color (CSF) Colorless Normal Colorless [facility] Comment on above: Order Comment: Speci men Type: CEREBROSPINAL FLUIDOrdering Facility: [facility] Address: [address] [place] [address] Performed By: #### 3 4563-7, [id number], [id number] ####[facility] LABORATORYCLIA [id number] [address] Color (Spun CSF) Not Indicated Normal Colorless [facility] Comment on above: Order Comment: Speci men Type: CEREBROSPINAL FLUIDOrdering Facility: [facility] Address: [address] [place] [address] Performed By: #### 3 4563-7, [id number], [id number] ####[facility]ORATORYCLIA [id number] [address] CSF TUBE NUMBER [employer] Normal [facility] Comment on above: Order Comment: Speci men Type: CEREBROSPINAL FLUIDOrdering Facility: [facility] Address: [address] [place] [address] Performed By: #### 3 4563-7, [id number], [id number] ####[facility]ORATORYCLIA [id number] [place] [address] [place] RBC Manual cnt (CSF) [#/Vol] 1 cells/uL Normal 0-5 [facility] Comment on above: Order Comment: Speci men Type: CEREBROSPINAL FLUIDOrdering Facility: [facility] Address: [address] [place] [address] Performed By: #### 3 4563-7, [id number], [id number] ####[facility] LABORATORYCLIA [id number] [address] STATES [place] [facility] WBC Manual cnt (CSF) [#/Vol] 50 cells/uL High 0-5 [facility] Comment on above: Order Comment: Speci men Type: CEREBROSPINAL FLUIDOrdering Facility: [facility] Address: [address] [place] [address] Performed By: #### 3 4563-7, [id number], [id number] ####[facility] LABORATORYCLIA [id number] [address] [place] [facility] Glucose CSF-ncon Glucose (CSF) [Mass/Vol] 64 mg/dL Normal 40-70 [facility] Comment on above: Order Comment: Speci men Type: CEREBROSPINAL FLUIDOrdering Facility: [facility] Address: [address] [place] [address] Result Comment: Lumb ar CSF glucose values of healthy patients are approximately 60% of the plasma values and must always be compared with a concurrently measured plasma value for adequate clinical interpretation.References: 1. Glucose HK (GLUC3) [package insert V 12.0 [place]]. [employer], [place], [place]. September 2015. 2. Teresa HGarfield, Loki, H. (2015). Chapter 7: Glucose and Lactate. F. Irina rose al.(eds.), Cerebrospinal Fluid in Clinical Neurology. [place]: [employer]. Performed By: #### 2 880-3, 2342-4 ####[facility] LABORATORYCLIA [id number] [address] [place] Magnesium SerPl-mCncon 07-26 Magnesium [Mass/Vol] 2.3 mg/dL Normal 1.7-2.3 [facility] Comment on above: Order Comment: Speci men Type: BLOOD SPECIMENOrdering Facility: [facility] Address: [address] [place] [address] Performed By: #### 1 9123-9, 2777-1, 3015-3 ####[facility] LABORATORYCLIA [id number] [address] NURSING PROGon 07-26-2021 NURSING PROG Normal [facility] Phosphate SerPl-mCncon 07-26 Phosphate [Mass/Vol] 2.6 mg/dL Low 2.7-4.8 [facility] Comment on above: Order Comment: Speci men Type: BLOOD SPECIMENOrdering Facility: [facility] Address: [address] [place] [address] Performed By: #### 1 9123-9, 2777, 3 ####[facility] LABORATORYCLIA [id number] [address] [place] [facility] Prot CSF-mCncon 07-26-2021 Protein (CSF) [Mass/Vol] 64 mg/dL High 15-45 [facility] Comment on above: Order Comment: Speci men Type: CEREBROSPINAL FLUIDOrdering Facility: [facility] Address: [address] [place] [address] Performed By: #### 2 880-3, 2342-4 ####[facility] LABORATORYCLIA [id number] [address] THERAPY NTon 07-26-2021 THERAPY NT Normal [facility] TSH SerPl-aCncon 07-26-2021 TSH Qn 1.470 m[IU]/L Normal 0.270-4.200 [facility] Comment on above: Order Comment: Speci men Type: BLOOD SPECIMENOrdering Facility: [facility] Address: [address] [place] [address] Performed By: #### 1 9123-9, 2777-1, 3015-3 ####[facility] LABORATORYCLIA [id number] [address] VITAMIN B12 BLOODon 07-27-19 Cobalamin (Vitamin B12) [Mass/Vol] 934 pg/mL Normal 232-1,245 [facility] Comment on above: Order Comment: Speci men Type: BLOOD SPECIMENOrdering Facility: [facility] Address: [address] [place] [address] Performed By: #### B 12 ####[facility] LABORATORYCLIA [id number] [address] aPTT PPPon 07-26-2021 aPTT Coag (PPP) [Time] 53.6 s High 23.0-32.4 [facility] Comment on above: Order Comment: Speci men Type: BLOOD SPECIMENOrdering Facility: [facility] Address: [address] [place] [address] Performed By: #### 1 4979-9 ####[facility] [id number] [address] aPTT Coag (PPP) [Time] 44.9 s High 23.0-32.4 [facility] Comment on above: Order Comment: Speci men Type: BLOOD SPECIMENOrdering Facility: [facility] Address: [address] [place] [address] Performed By: #### 1 4979-9 ####[facility] LABORATORYCLIA [id number] [address] ALLIED HEALTHon 07-25-2021 ALLIED HEALTH HNO ID: [id number] Author: RT Rajwinder(R) Service: Radiology Author Type: Technologist Type: Allied Health Filed: 07/25/2021 1:37 PM Note Text: Called floor for MRI screening form [id number] Normal [facility] Bacteria Bld Culton 07-26-19 Bacteria identified Cx Nom (Bld) CULTURE, BLOOD: No growth 5 days Normal [facility] Comment on above: Performed By: #### 6 00-7 ####[facility] LABORATORYCLIA [id number] [address] Bacteria identified Cx Nom (Bld) CULTURE, BLOOD: No growth 5 days Normal [facility] Comment on above: Performed By: #### 6 00-7 ####[facility] LABORATORYCLIA [id number] [address] [place] CASE MANAGEMon 07-25-2021 CASE MANAGEM Normal [facility] CBC W Auto Differential pane l (Bld)on 07-25-2021 Basophils (Bld) [#/Vol] 0.06 10*3/uL Normal <0.11 [facility] Comment on above: Order Comment: Speci men Type: BLOOD SPECIMENOrdering Facility: [facility] Address: [address] [place] [address] Performed By: #### 5 7021-8 ####[facility] LABORATORYCLIA [id number] [address] Basophils/100 WBC (Bld) 0.6 % Normal [facility] Comment on above: Order Comment: Speci men Type: BLOOD SPECIMENOrdering Facility: [facility] Address: [address] [place] [address] Performed By: #### 5 7021-8 ####[facility] LABORATORYCLIA [id number] [address] Differential cell count method Nom (Bld) Auto Normal [facility] Comment on above: Order Comment: Speci men Type: BLOOD SPECIMENOrdering Facility: [facility] Address: [address] [place] [address] Performed By: #### 5 7021-8 ####[facility] LABORATORYCLIA [id number] [address] [place] Eosinophils (Bld) [#/Vol] 0.26 10*3/uL Normal <0.46 [facility] Comment on above: Order Comment: Speci men Type: BLOOD SPECIMENOrdering Facility: [facility] Address: [facility] [address] Performed By: #### 5 7021-8 ####[facility]ORATORYCLIA [id number] [address] [place] Eosinophils/100 WBC (Bld) 2.5 % Normal [facility] Comment on above: Order Comment: Speci men Type: BLOOD SPECIMENOrdering Facility: [facility] Address: [address] [place] [address] Performed By: #### 5 7021-8 ####[facility] LABORATORYCLIA [id number] [address] Erythrocyte distribution width (RBC) [Ratio] 16.9 % High 11.5-15.0 [facility] Comment on above: Order Comment: Speci men Type: BLOOD SPECIMENOrdering Facility: [facility] Address: [address] [place] [address] Performed By: #### 5 7021-8 ####[facility] LABORATORYCLIA [id number] [address] Hematocrit (Bld) [Volume fraction] 29.6 % Low 39.0-51.0 [facility] Comment on above: Order Comment: Speci men Type: BLOOD SPECIMENOrdering Facility: [facility] Address: [address] [place] [address] Performed By: #### 5 7021-8 ####[facility] LABORATORYCLIA [id number] [address] [place] Hemoglobin (Bld) [Mass/Vol] 8.8 g/dL Low 13.0-17.0 [facility] Comment on above: Order Comment: Speci men Type: BLOOD SPECIMENOrdering Facility: [facility] Address: [address] [place] [address] Performed By: #### 5 7021-8 ####[facility] LABORATORYCLIA [id number] [address] [place] IMMATURE GRAN % 0.6 % Normal [facility] Comment on above: Order Comment: Speci men Type: BLOOD SPECIMENOrdering Facility: [facility] Address: [address] [place] [address] Performed By: #### 5 7021-8 ####[facility] LABORATORYCLIA [id number] [address] IMMATURE GRAN ABS 0.06 k/uL Normal <0.10 [facility] Comment on above: Order Comment: Speci men Type: BLOOD SPECIMENOrdering Facility: [facility] Address: [address] [place] [address] Performed By: #### 5 7021-8 ####[facility] LABORATORYCLIA [id number] [address] Lymphocytes (Bld) [#/Vol] 2.15 10*3/uL Normal 1.00-4.00 [facility] Comment on above: Order Comment: Speci men Type: BLOOD SPECIMENOrdering Facility: [facility] Address: [address] [place] [address] Performed By: #### 5 7021-8 ####[facility] LABORATORYCLIA [id number] [address] Lymphocytes/100 WBC (Bld) 20.7 % Normal [facility] Comment on above: Order Comment: Speci men Type: BLOOD SPECIMENOrdering Facility: [facility] Address: [address] [place] [address] Performed By: #### 5 7021-8 ####[facility] LABORATORYCLIA [id number] [address] MCH (RBC) [Entitic mass] 28.2 pg Normal 26.0-34.0 [facility] Comment on above: Order Comment: Speci men Type: BLOOD SPECIMENOrdering Facility: [facility] Address: [address] [place] [address] Performed By: #### 5 7021-8 ####[facility] LABORATORYCLIA [id number] [address] MCHC (RBC) [Mass/Vol] 29.7 g/dL Low 30.5-36.0 [facility] Comment on above: Order Comment: Speci men Type: BLOOD SPECIMENOrdering Facility: [facility] Address: [address] [place] [address] Performed By: #### 5 7021-8 ####[facility] LABORATORYCLIA [id number] [address] [place] MCV (RBC) [Entitic vol] 94.9 fL Normal 80.0-100.0 [facility] Comment on above: Order Comment: Speci men Type: BLOOD SPECIMENOrdering Facility: [facility] Address: [address] [place] [address] Performed By: #### 5 7021-8 ####[facility] LABORATORYCLIA [id number] [address] [place] Monocytes (Bld) [#/Vol] 0.62 10*3/uL Normal <0.87 [facility] Comment on above: Order Comment: Speci men Type: BLOOD SPECIMENOrdering Facility: [facility] Address: [address] [place] [address] Performed By: #### 5 7021-8 ####[facility] LABORATORYCLIA [id number] [address] [place] [facility] Monocytes/100 WBC (Bld) 6.0 % Normal [facility] Comment on above: Order Comment: Speci men Type: BLOOD SPECIMENOrdering Facility: [facility] Address: [address] [place] [address] Performed By: #### 5 7021-8 ####[facility] LABORATORYCLIA [id number] [address] [place] Neutrophils (Bld) [#/Vol] 7.25 10*3/uL Normal 1.45-7.50 [facility] Comment on above: Order Comment: Speci men Type: BLOOD SPECIMENOrdering Facility: [facility] Address: [address] [place] [address] Performed By: #### 5 7021-8 ####[facility] LABORATORYCLIA [id number] [address] [place] Neutrophils/100 WBC (Bld) 69.6 % Normal [facility] Comment on above: Order Comment: Speci men Type: BLOOD SPECIMENOrdering Facility: [facility] Address: [address] [place] [address] Performed By: #### 5 7021-8 ####[facility] LABORATORYCLIA [id number] [address] [place] Nucleated RBC (Bld) [#/Vol] 10*3/uL Normal <0.01 [facility] Comment on above: Order Comment: Speci men Type: BLOOD SPECIMENOrdering Facility: [facility] Address: [address] [place] [address] Performed By: #### 5 7021-8 ####[facility] LABORATORYCLIA [id number] [address] Nucleated RBC/100 WBC (Bld) [Ratio] 0.0 /100 WBC Normal [facility] Comment on above: Order Comment: Speci men Type: BLOOD SPECIMENOrdering Facility: [facility] Address: [address] [place] [address] Performed By: #### 5 7021-8 ####[facility] LABORATORYCLIA [id number] [address] [place] Platelet mean volume (Bld) [Entitic vol] 11.3 fL Normal 9.0-12.7 [facility] Comment on above: Order Comment: Speci men Type: BLOOD SPECIMENOrdering Facility: [facility] Address: [address] [address] Performed By: #### 5 7021-8 ####[facility] LABORATORYCLIA [id number] [address] [place] Platelets (Bld) [#/Vol] 243 10*3/uL Normal 150-400 [facility] Comment on above: Order Comment: Speci men Type: BLOOD SPECIMENOrdering Facility: [facility] Address: [address] [place] [address] Performed By: #### 5 7021-8 ####[facility] LABORATORYCLIA [id number] [address] [place] RBC (Bld) [#/Vol] 3.12 10*6/uL Low 4.20-6.00 [facility] Comment on above: Order Comment: Speci men Type: BLOOD SPECIMENOrdering Facility: [facility] Address: [address] [place] [address] Performed By: #### 5 7021-8 ####[facility] LABORATORYCLIA [id number] [address] WBC (Bld) [#/Vol] 10.40 10*3/uL Normal 3.70-11.00 [facility] Comment on above: Order Comment: Speci men Type: BLOOD SPECIMENOrdering Facility: [facility] Address: [address] [place] [address] Performed By: #### 5 7021-8 ####[facility] LABORATORYCLIA [id number] [address] CONSULT PROGon 07-25-2021 CONSULT PROG Normal [facility] MYCOPLASMA PNEUM IGMon 07-25 M. PNEUMO IGM, QUAL Negative Normal Negative [facility] Comment on above: Order Comment: Speci men Type: BLOOD SPECIMENOrdering Facility: [facility] Address: [address] [place] [address] Result Comment: Myco plasma pneumoniae IgM antibody test is used as an aid in diagnosis of recent infection with M. pneumoniae. It may occasionally remain elevated for extended periods after an acute infection. Cannot exclude recent infection if the specimen collected 7-10 days after onset of signs and symptoms. Clinical correlation is required. Performed By: #### M YCOPM ####[facility] LABCLIA [id number] [facility] [address] [place] NURSING PROGon 07-25-2021 NURSING PROG Normal [facility] THERAPY NTon 07-25-2021 THERAPY NT Normal [facility] THERAPY NT Normal [facility] aPTT PPPon 07-25-2021 aPTT Coag (PPP) [Time] 62.6 s High 23.0-32.4 [facility] Comment on above: Order Comment: Speci men Type: BLOOD SPECIMENOrdering Facility: [facility] Address: [address] [place] [address] Performed By: #### 1 4979-9 ####[facility] LABORATORYCLIA [id number] [place] [address] [place] Bacteria Ur Culton 2 Bacteria identified Cx Nom (U) CULTURE, URINE: No growth (<100 CFU/ml) Normal [facility] Comment on above: Performed By: #### 6 30-4 ####[facility] LABORATORYCLIA [id number] [place] [address] [place] Basic metabolic 2000 panelon 07-24-2021 Anion gap [Moles/Vol] 13 mmol/L Normal 9-18 [facility] Comment on above: Order Comment: Speci men Type: BLOOD SPECIMENOrdering Facility: [facility] Address: [address] [place] [address] Performed By: #### 1 9123-9, KATIE, 2777-1, 83117-9 ####[facility] LABORATORYCLIA [id number] [place] [address] [place] Calcium [Mass/Vol] 9.5 mg/dL Normal 8.5-10.2 [facility] Comment on above: Order Comment: Speci men Type: BLOOD SPECIMENOrdering Facility: [facility] Address: [address] [place] [address] Performed By: #### 1 9123-9, KATIE, 2776-1, 50107-2 ####[facility] LABORATORYCLIA [id number] [place] [address] [place] Chloride [Moles/Vol] 102 mmol/L Normal 97-105 [facility] Comment on above: Order Comment: Speci men Type: BLOOD SPECIMENOrdering Facility: [facility] Address: [address] [place] [address] Performed By: #### 1 9123-9, PROCCARLITOS, 2776-05, 21794-2 ####[facility] LABORATORYCLIA [id number] [address] [place] [facility] CO2 [Moles/Vol] 28 mmol/L Normal 22-30 [facility] Comment on above: Order Comment: Speci men Type: BLOOD SPECIMENOrdering Facility: [facility] Address: [address] [place] [address] Performed By: #### 1 9123-9, KATIE, 2776-05, 42608-8 ####[facility] [id number] [address] Creatinine [Mass/Vol] 0.86 mg/dL Normal 0.73-1.22 [facility] Comment on above: Order Comment: Speci men Type: BLOOD SPECIMENOrdering Facility: [facility] Address: [address] [place] [address] Performed By: #### 1 9123-9, KATIE, 2776-05, ####[facility] LABORATORYIA [id number] [address] ESTIMATED GLOMERULAR FILTRATION RATE 94 mL/min/1.73m??? Normal >=60 [facility] Comment on above: Order Comment: Speci men Type: BLOOD SPECIMENOrdering Facility: [facility] Address: [address] [place] [address] Result Comment: Luzmaria mated Glomerular Filtration Rate (eGFR) is calculated using the 2020 CKD-EPI creatinine equation. This equation utilizes serum creatinine, sex, and age as parameters. The creatinine assay has traceable calibration to isotope dilution-mass spectrometry. Refer to KDIGO guidelines for clinical interpretation. In patients with unstable renal function, e.g. those with acute kidney injury, the eGFR may not accurately reflect actual GFR. Performed By: #### 1 9123-9, PROCAL, 27711-04, 39842-3 ####[facility] LABORATORYCLIA [id number] [place] [address] [place] Glucose [Mass/Vol] 148 mg/dL High 74-99 [facility] Comment on above: Order Comment: Speci men Type: BLOOD SPECIMENOrdering Facility: [facility] Address: [address] [place] [address] Result Comment: The [place] [employer] Association (ADA) provides guidance for cutoff values for fasting glucose and random glucose. The ADA defines fasting as no caloric intake for at least 8 hours. Fasting plasma glucose results between 100 to 125 mg/dL indicate increased risk for diabetes (prediabetes).Fasting plasma glucose results greater than or equal to 126 mg/dL meet the criteria for diagnosis of diabetes. In the absence of unequivocal hyperglycemia, results should be confirmed by repeat testing. In a patient with classic symptoms of hyperglycemia or hyperglycemic crisis, random plasma glucose results greater than or equal to 200 mg/dL meet the criteria for diagnosis of diabetes.Reference: Standards of Medical Care in Diabetes 2016, [place] [employer]. Diabetes Care. 2016.39(Suppl 1). Performed By: #### 1 9123-9, PROCAL, 7-, 71669-4 ####[facility] LABORATORYCLIA [id number] [place] [address] [place] Potassium [Moles/Vol] 4.0 mmol/L Normal 3.7-5.1 [facility] Comment on above: Order Comment: Speci men Type: BLOOD SPECIMENOrdering Facility: [facility] Address: [address] [place] [address] Performed By: #### 1 9123-9, PROCAL, 2777-1, 63084-3 ####[facility] LABORATORYCLIA [id number] [place] [address] [place] Sodium [Moles/Vol] 143 mmol/L Normal 136-144 [facility] Comment on above: Order Comment: Speci men Type: BLOOD SPECIMENOrdering Facility: [facility] Address: [address] [place] [address] Performed By: #### 1 9123-9, PROCAL, 7-, 13260-4 ####[facility] LABORATORYCLIA [id number] [place] [address] [place] Urea nitrogen [Mass/Vol] 38 mg/dL High 9- [facility] Comment on above: Order Comment: Speci men Type: BLOOD SPECIMENOrdering Facility: [facility] Address: [address] [place] [address] Performed By: #### 1 9123-9, PROCAL, 2777-1, 28424-4 ####[facility] LABORATORYCLIA [id number] [place] [address] [place] CBC W Auto Differential pane l (Bld)on 07-24-2021 Basophils (Bld) [#/Vol] 0.06 10*3/uL Normal <0.11 [facility] Comment on above: Order Comment: Speci men Type: BLOOD SPECIMENOrdering Facility: [facility] Address: [address] [place] [address] Performed By: #### 5 7021-8 ####[facility] LABORATORYCLIA [id number] [place] [address] [place] Basophils/100 WBC (Bld) 0.6 % Normal [facility] Comment on above: Order Comment: Speci men Type: BLOOD SPECIMENOrdering Facility: [facility] Address: [address] [place] [address] Performed By: #### 5 7021-8 ####[facility] LABORATORYCLIA [id number] [address] [place] [facility] Differential cell count method Nom (Bld) Auto Normal [facility] Comment on above: Order Comment: Speci men Type: BLOOD SPECIMENOrdering Facility: [facility] Address: [address] [place] [address] Performed By: #### 5 7021-8 ####[facility] LABORATORYCLIA [id number] [place] [address] [place] Eosinophils (Bld) [#/Vol] 0.03 10*3/uL Normal <0.46 [facility] Comment on above: Order Comment: Speci men Type: BLOOD SPECIMENOrdering Facility: [facility] Address: [address] [place] [address] Performed By: #### 5 7021-8 ####[facility] LABORATORYCLIA [id number] [address] [place] [facility] Eosinophils/100 WBC (Bld) 0.3 % Normal [facility] Comment on above: Order Comment: Speci men Type: BLOOD SPECIMENOrdering Facility: [facility] Address: [address] [place] [address] Performed By: #### 5 7021-8 ####[facility] LABORATORYCLIA [id number] [address] Erythrocyte distribution width (RBC) [Ratio] 17.0 % High 11.5-15.0 [facility] Comment on above: Order Comment: Speci men Type: BLOOD SPECIMENOrdering Facility: [facility] Address: [address] [place] [address] Performed By: #### 5 7021-8 ####[facility] LABORATORYCLIA [id number] [address] Hematocrit (Bld) [Volume fraction] 30.5 % Low 39.0-51.0 [facility] Comment on above: Order Comment: Speci men Type: BLOOD SPECIMENOrdering Facility: [facility] Address: [address] [place] [address] Performed By: #### 5 7021-8 ####[facility] LABORATORYCLIA [id number] [address] [place] Hemoglobin (Bld) [Mass/Vol] 9.0 g/dL Low 13.0-17.0 [facility] Comment on above: Order Comment: Speci men Type: BLOOD SPECIMENOrdering Facility: [facility] Address: [address] [place] [address] Performed By: #### 5 7021-8 ####[facility] LABORATORYCLIA [id number] [address] [place] IMMATURE GRAN % 0.5 % Normal [facility] Comment on above: Order Comment: Speci men Type: BLOOD SPECIMENOrdering Facility: [facility] Address: [address] [place] [address] Performed By: #### 5 7021-8 ####[facility] LABORATORYCLIA [id number] [address] IMMATURE GRAN ABS 0.05 k/uL Normal <0.10 [facility] Comment on above: Order Comment: Speci men Type: BLOOD SPECIMENOrdering Facility: [facility] Address: [address] [place] [address] Performed By: #### 5 7021-8 ####[facility] LABORATORYCLIA [id number] [address] Lymphocytes (Bld) [#/Vol] 1.68 10*3/uL Normal 1.00-4.00 [facility] Comment on above: Order Comment: Speci men Type: BLOOD SPECIMENOrdering Facility: [facility] Address: [address] [place] [address] Performed By: #### 5 7021-8 ####[facility] LABORATORYCLIA [id number] [address] Lymphocytes/100 WBC (Bld) 16.2 % Normal [facility] Comment on above: Order Comment: Speci men Type: BLOOD SPECIMENOrdering Facility: [facility] Address: [address] [place] [address] Performed By: #### 5 7021-8 ####[facility] LABORATORYCLIA [id number] [address] [place] [facility] MCH (RBC) [Entitic mass] 27.4 pg Normal 26.0-34.0 [facility] Comment on above: Order Comment: Speci men Type: BLOOD SPECIMENOrdering Facility: [facility] Address: [address] [place] [address] Performed By: #### 5 7021-8 ####[facility] LABORATORYCLIA [id number] [address] [place] [facility] MCHC (RBC) [Mass/Vol] 29.5 g/dL Low 30.5-36.0 [facility] Comment on above: Order Comment: Speci men Type: BLOOD SPECIMENOrdering Facility: [facility] Address: [address] [place] [address] Performed By: #### 5 7021-8 ####[facility] LABORATORYCLIA [id number] [address] MCV (RBC) [Entitic vol] 93.0 fL Normal 80.0-100.0 [facility] Comment on above: Order Comment: Speci men Type: BLOOD SPECIMENOrdering Facility: [facility] Address: [address] [place] [address] Performed By: #### 5 7021-8 ####[facility] LABORATORYCLIA [id number] [address] [place] Monocytes (Bld) [#/Vol] 0.63 10*3/uL Normal <0.87 [facility] Comment on above: Order Comment: Speci men Type: BLOOD SPECIMENOrdering Facility: [facility] Address: [address] [place] [address] Performed By: #### 5 7021-8 ####[facility] LABORATORYCLIA [id number] [address] Monocytes/100 WBC (Bld) 6.1 % Normal [facility] Comment on above: Order Comment: Speci men Type: BLOOD SPECIMENOrdering Facility: [facility] Address: [address] [place] [address] Performed By: #### 5 7021-8 ####[facility] LABORATORYCLIA [id number] [address] [place] Neutrophils (Bld) [#/Vol] 7.91 10*3/uL High 1.45-7.50 [facility] Comment on above: Order Comment: Speci men Type: BLOOD SPECIMENOrdering Facility: [facility] Address: [address] [place] [address] Performed By: #### 5 7021-8 ####[facility] LABORATORYCLIA [id number] [address] Neutrophils/100 WBC (Bld) 76.3 % Normal [facility] Comment on above: Order Comment: Speci men Type: BLOOD SPECIMENOrdering Facility: [facility] Address: [address] [place] [address] Performed By: #### 5 7021-8 ####[facility] LABORATORYCLIA [id number] [address] Nucleated RBC (Bld) [#/Vol] 10*3/uL Normal <0.01 [facility] Comment on above: Order Comment: Speci men Type: BLOOD SPECIMENOrdering Facility: [facility] Address: [address] [place] [address] Performed By: #### 5 7021-8 ####[facility] LABORATORYCLIA [id number] [address] Nucleated RBC/100 WBC (Bld) [Ratio] 0.0 /100 WBC Normal [facility] Comment on above: Order Comment: Speci men Type: BLOOD SPECIMENOrdering Facility: [facility] Address: [address] [place] [address] Performed By: #### 5 7021-8 ####[facility] LABORATORYCLIA [id number] [address] Platelet mean volume (Bld) [Entitic vol] 11.1 fL Normal 9.0-12.7 [facility] Comment on above: Order Comment: Speci men Type: BLOOD SPECIMENOrdering Facility: [facility] Address: [address] [place] [address] Performed By: #### 5 7021-8 ####[facility] LABORATORYCLIA [id number] [address] [place] Platelets (Bld) [#/Vol] 285 10*3/uL Normal 150-400 [facility] Comment on above: Order Comment: Speci men Type: BLOOD SPECIMENOrdering Facility: [facility] Address: [address] [place] [address] Performed By: #### 5 7021-8 ####[facility] LABORATORYCLIA [id number] [place] [address] [place] RBC (Bld) [#/Vol] 3.28 10*6/uL Low 4.20-6.00 [facility] Comment on above: Order Comment: Speci men Type: BLOOD SPECIMENOrdering Facility: [facility] Address: [address] [place] [address] Performed By: #### 5 7021-8 ####[facility] LABORATORYCLIA [id number] [place] [address] [place] WBC (Bld) [#/Vol] 10.36 10*3/uL Normal 3.70-11.00 [facility] Comment on above: Order Comment: Speci men Type: BLOOD SPECIMENOrdering Facility: [facility] Address: [address] [place] [address] Performed By: #### 5 7021-8 ####[facility] LABORATORYCLIA [id number] [place] [address] [place] Legionella Ag Ur Qlon 2021 Legionella sp Ag Ql (U) Negative Normal Negative [facility] Comment on above: Order Comment: Speci men Type: URINE SPECIMENOrdering Facility: [facility] Address: [address] [place] [address] Performed By: #### 3 2781-7 ####[facility] LABORATORYCLIA [id number] [address] [place] Magnesium SerPl-mCncon 07-24 Magnesium [Mass/Vol] 2.3 mg/dL Normal 1.7-2.3 [facility] Comment on above: Order Comment: Speci men Type: BLOOD SPECIMENOrdering Facility: [facility] Address: [address] [place] [address] Performed By: #### 1 9123-9, ELVAMD, 2777-, 77483-9 ####[facility] LABORATORYCLIA [id number] [address] [place] NURSING PROGon 07-24-2021 NURSING PROG Normal [facility] PROCALCITONIN (LAB)on 2021 Procalcitonin [Mass/Vol] 0.15 ng/mL High <0.09 [facility] Comment on above: Order Comment: Speci men Type: BLOOD SPECIMENOrdering Facility: [facility] Address: [address] [place] [address] Result Comment: For a guided interpretation of test results, please visit the [facility] in Procalcitonin Calculator, [email or web address]. Performed By: #### 1 9123-9, KATIE, 2777, 38244-3 ####[facility] LABORATORYCLIA [id number] [address] [place] Phosphate SerPl-mCncon 07-24 Phosphate [Mass/Vol] 3.9 mg/dL Normal 2.7-4.8 [facility] Comment on above: Order Comment: Speci men Type: BLOOD SPECIMENOrdering Facility: [facility] Address: [address] [place] [address] Performed By: #### 1 9123-9, KATIE, 2777-, 32225-7 ####[facility] LABORATORYCLIA [id number] [address] [place] STREPTOCOCCUS PNEUMONIAE AGo n 07-24-2021 STREPTOCOCCUS PNEUMONIAE AG Normal [facility] Comment on above: Performed By: #### S PNAG ####[facility] LABORATORYCLIA [id number] [address] [place] aPTT PPPon 07-24-2021 aPTT Coag (PPP) [Time] 60.8 s High 23.0-32.4 [facility] Comment on above: Order Comment: Speci men Type: BLOOD SPECIMENOrdering Facility: [facility] Address: [address] [place] [address] Performed By: #### 1 4979-9 ####[facility] LABORATORYCLIA [id number] [address] aPTT Coag (PPP) [Time] 38.2 s High 23.0-32.4 [facility] Comment on above: Order Comment: Speci men Type: BLOOD SPECIMENOrdering Facility: [facility] Address: [address] [place] [address] Performed By: #### 1 4979-9 ####[facility] LABORATORYCLIA [id number] [address] aPTT Coag (PPP) [Time] 35.9 s High 23.0-32.4 [facility] Comment on above: Order Comment: Speci men Type: BLOOD SPECIMENOrdering Facility: [facility] Address: [address] [place] [address] Performed By: #### 1 4979-9 ####[facility]ORATORYCLIA [id number] [address] aPTT Coag (PPP) [Time] 28.8 s Normal 23.0-32.4 [facility] Comment on above: Order Comment: Speci men Type: BLOOD SPECIMENOrdering Facility: [facility] Address: [address] [place] [address] Performed By: #### 1 4979-9 ####[facility] LABORATORYCLIA [id number] [address] [place] ALLIED HEALTHon 07-23-2021 ALLIED HEALTH Normal [facility] ALLIED HEALTH Normal [facility] ALLIED HEALTH Normal [facility] ARTERIAL BLOOD GASESon 07-23 Base excess Calc (Bld) [Moles/Vol] 4 mmol/L High 0-2 [facility] Comment on above: Order Comment: Speci men Type: ARTERIAL BLOOD SPECIMENOrdering Facility: [facility] Address: [address] [place] [address] Performed By: #### A LLBG ####[facility]ORATORYCLIA [id number] [address] Body temperature 100.58 [degF] Normal [facility] Comment on above: Order Comment: Speci men Type: ARTERIAL BLOOD SPECIMENOrdering Facility: [facility] Address: [address] [place] [address] Performed By: #### A LLBG ####[facility] LABORATORYCLIA [id number] [address] CALCIUM IONIZED, PH CORRECTED 1.26 mmol/L Normal 1.08-1.30 [facility] Comment on above: Order Comment: Speci men Type: ARTERIAL BLOOD SPECIMENOrdering Facility: [facility] Address: [address] [place] [address] Performed By: #### A LLBG ####[facility]ORATORYCLIA [id number] [address] Calcium.ionized (BldV) [Mass/Vol] 1.25 mmol/L Normal 1.08-1.30 [facility] Comment on above: Order Comment: Speci men Type: ARTERIAL BLOOD SPECIMENOrdering Facility: [facility] Address: [address] [place] [address] Performed By: #### A LLBG ####[facility]ORATORYCLIA [id number] [address] Carboxyhemoglobin (BldA) [Mass fraction] 1.2 % Normal 0.0-2.0 [facility] Comment on above: Order Comment: Speci men Type: ARTERIAL BLOOD SPECIMENOrdering Facility: [facility] Address: [address] [place] [address] Result Comment: Carb oxyhemoglobin Reference Range for Smokers: 2.0-8.0% Performed By: #### A LLBG ####[facility]ORATORYCLIA [id number] [address] CO2 (Bld) [Partial pressure] 46 mm Hg Normal 36-46 [facility] Comment on above: Order Comment: Speci men Type: ARTERIAL BLOOD SPECIMENOrdering Facility: [facility] Address: [address] [place] [address] Performed By: #### A LLBG ####[facility]ATORYCLIA [id number] [address] [place] CO2 [Moles/Vol] 27 mmol/L Normal 22-28 [facility] Comment on above: Order Comment: Speci men Type: ARTERIAL BLOOD SPECIMENOrdering Facility: [facility] Address: [address] [place] [address] Performed By: #### A LLBG ####[facility]ORATORYCLIA [id number] [address] [place] CO2 adjusted to patient's actual temperature (Bld) [Partial pressure] 48 mmHg High 36-46 [facility] Comment on above: Order Comment: Speci men Type: ARTERIAL BLOOD SPECIMENOrdering Facility: [facility] Address: [address] [place] [address] Performed By: #### A LLBG ####[facility] LABORATORYCLIA [id number] [place] [address] [place] Glucose [Mass/Vol] 134 mg/dL High 60-105 [facility] Comment on above: Order Comment: Speci men Type: ARTERIAL BLOOD SPECIMENOrdering Facility: [facility] Address: [address] [place] [address] Performed By: #### A LLBG ####[facility]ORYCLIA [id number] [place] [address] [place] HCO3 (Bld) [Moles/Vol] 29 mmol/L High 22-26 [facility] Comment on above: Order Comment: Speci men Type: ARTERIAL BLOOD SPECIMENOrdering Facility: [facility] Address: [address] [place] [address] Performed By: #### A LLBG ####[facility]ATORYCLIA [id number] [address] [place] [facility] Hematocrit (Bld) [Volume fraction] 31.4 % Low 39.0-51.0 [facility] Comment on above: Order Comment: Speci men Type: ARTERIAL BLOOD SPECIMENOrdering Facility: [facility] Address: [address] [place] [place] [address] Performed By: #### A LLBG ####[facility]ORATORYCLIA [id number] [address] [place] Hemoglobin (Bld) [Mass/Vol] 10.2 g/dL Low 13.0-17.0 [facility] Comment on above: Order Comment: Speci men Type: ARTERIAL BLOOD SPECIMENOrdering Facility: [facility] Address: [address] [place] [address] Performed By: #### A LLBG ####[facility]ORATORYCLIA [id number] [address] [place] Methemoglobin (Bld) [Mass fraction] % Normal 0.0-1.5 [facility] Comment on above: Order Comment: Speci men Type: ARTERIAL BLOOD SPECIMENOrdering Facility: [facility] Address: [address] [place] [address] Performed By: #### A LLBG ####[facility] LABORATORYCLIA [id number] [address] [place] O2 THERAPY Ventilator Normal [facility] Comment on above: Order Comment: Speci men Type: ARTERIAL BLOOD SPECIMENOrdering Facility: [facility] Address: [address] [place] [address] Performed By: #### A LLBG ####[facility]ORATORYCLIA [id number] [address] [place] Oxygen (Bld) [Partial pressure] 113 mm Hg High 85-95 [facility] Comment on above: Order Comment: Speci men Type: ARTERIAL BLOOD SPECIMENOrdering Facility: [facility] Address: [address] [place] [place] [address] Performed By: #### A LLBG ####[facility]ORATORYCLIA [id number] [address] [place] Oxygen adjusted to patient's actual temperature (Bld) [Partial pressure] 119 mmHg High 85-95 [facility] Comment on above: Order Comment: Speci men Type: ARTERIAL BLOOD SPECIMENOrdering Facility: [facility] Address: [address] [place] [address] Performed By: #### A LLBG ####[facility]ORATORYCLIA [id number] [address] [place] OXYGEN SATURATION, ARTERIAL 98 % Normal 95-98 [facility] Comment on above: Order Comment: Speci men Type: ARTERIAL BLOOD SPECIMENOrdering Facility: [facility] Address: [address] [place] [address] Performed By: #### A LLBG ####[facility]ORATORYCLIA [id number] [address] Oxyhemoglobin (BldA) [Mass fraction] 96 % Normal 95-98 [facility] Comment on above: Order Comment: Speci men Type: ARTERIAL BLOOD SPECIMENOrdering Facility: [facility] Address: [address] [place] [address] Performed By: #### A LLBG ####[facility]ORATORYCLIA [id number] [address] [place] pH (Bld) 7.41 [pH] Normal 7.35-7.45 [facility] Comment on above: Order Comment: Speci men Type: ARTERIAL BLOOD SPECIMENOrdering Facility: [facility] Address: [address] [place] [address] Performed By: #### A LLBG ####[facility]ORATORYCLIA [id number] [address] pH adjusted to patient's actual temperature (Bld) 7.40 Normal 7.35-7.45 [facility] Comment on above: Order Comment: Speci men Type: ARTERIAL BLOOD SPECIMENOrdering Facility: [facility] Address: [address] [place] [address] Performed By: #### A LLBG ####[facility]ORATORYCLIA [id number] [address] [place] [facility] Potassium [Moles/Vol] 4.3 mmol/L Normal 3.5-5.0 [facility] Comment on above: Order Comment: Speci men Type: ARTERIAL BLOOD SPECIMENOrdering Facility: [facility] Address: [address] [place] [address] Performed By: #### A LLBG ####[facility]ORATORYCLIA [id number] [address] [place] Sodium [Moles/Vol] 144 mmol/L Normal 136-144 [facility] Comment on above: Order Comment: Speci men Type: ARTERIAL BLOOD SPECIMENOrdering Facility: [facility] Address: [address] [place] [address] Performed By: #### A LLBG ####[facility]ORATORYCLIA [id number] [address] [place] Bacteria CSF Culton 07-24-19 22 Bacteria identified Cx Nom (CSF) Abnormal [facility] Comment on above: Performed By: #### 6 06-4 ####[facility]ORATORYCLIA [id number] [address] [place] Basic metabolic 2000 panelon 07-23-2021 Anion gap [Moles/Vol] 12 mmol/L Normal 9-18 [facility] Comment on above: Order Comment: Speci men Type: BLOOD SPECIMENOrdering Facility: [facility] Address: [address] [place] [address] Performed By: #### 2 4321-2 ####[facility]ORATORYCLIA [id number] [address] [place] Calcium [Mass/Vol] 9.7 mg/dL Normal 8.5-10.2 [facility] Comment on above: Order Comment: Speci men Type: BLOOD SPECIMENOrdering Facility: [facility] Address: [address] [place] [address] Performed By: #### 2 4321-2 ####[facility]ORATORYCLIA [id number] [address] Chloride [Moles/Vol] 105 mmol/L Normal 97-105 [facility] Comment on above: Order Comment: Speci men Type: BLOOD SPECIMENOrdering Facility: [facility] Address: [address] [place] [address] Performed By: #### 2 4321-2 ####[facility]ORATORYCLIA [id number] [address] [place] [facility] CO2 [Moles/Vol] 28 mmol/L Normal 22-30 [facility] Comment on above: Order Comment: Speci men Type: BLOOD SPECIMENOrdering Facility: [facility] Address: [address] [place] [address] Performed By: #### 2 4321-2 ####[facility]ORATORYCLIA [id number] [address] Creatinine [Mass/Vol] 0.78 mg/dL Normal 0.73-1.22 [facility] Comment on above: Order Comment: Speci men Type: BLOOD SPECIMENOrdering Facility: [facility] Address: [address] [place] [address] Performed By: #### 2 4321-2 ####[facility] LABORATORYCLIA [id number] [address] ESTIMATED GLOMERULAR FILTRATION RATE 97 mL/min/1.73m??? Normal >=60 [facility] Comment on above: Order Comment: Speci men Type: BLOOD SPECIMENOrdering Facility: [facility] Address: [address] [place] [address] Result Comment: Luzmaria mated Glomerular Filtration Rate (eGFR) is calculated using the 2020 CKD-EPI creatinine equation. This equation utilizes serum creatinine, sex, and age as parameters. The creatinine assay has traceable calibration to isotope dilution-mass spectrometry. Refer to KDIGO guidelines for clinical interpretation. In patients with unstable renal function, e.g. those with acute kidney injury, the eGFR may not accurately reflect actual GFR. Performed By: #### 2 4321-2 ####[facility] LABORATORYCLIA [id number] [place] [address] [place] Glucose [Mass/Vol] 127 mg/dL High 74-99 [facility] Comment on above: Order Comment: Shira francia Type: BLOOD SPECIMENOrdering Facility: [facility] Address: [address] [place] [address] Result Comment: The [place] Diabetes Association (ADA) provides guidance for cutoff values for fasting glucose and random glucose. The ADA defines fasting as no caloric intake for at least 8 hours. Fasting plasma glucose results between 100 to 125 mg/dL indicate increased risk for diabetes (prediabetes).Fasting plasma glucose results greater than or equal to 126 mg/dL meet the criteria for diagnosis of diabetes. In the absence of unequivocal hyperglycemia, results should be confirmed by repeat testing. In a patient with classic symptoms of hyperglycemia or hyperglycemic crisis, random plasma glucose results greater than or equal to 200 mg/dL meet the criteria for diagnosis of diabetes.Reference: Standards of Medical Care in Diabetes 2016, [place] [employer]. Diabetes Care. 2016.39(Suppl 1). Performed By: #### 2 4321-2 ####[facility] LABORATORYCLIA [id number] [place] [address] [place] Potassium [Moles/Vol] 4.3 mmol/L Normal 3.7-5.1 [facility] Comment on above: Order Comment: Shira francia Type: BLOOD SPECIMENOrdering Facility: [facility] Address: [address] [place] [address] Performed By: #### 2 4321-2 ####[facility] LABORATORYCLIA [id number] [place] [id number] [place] Sodium [Moles/Vol] 145 mmol/L High 136-144 [facility] Comment on above: Order Comment: Shira francia Type: BLOOD SPECIMENOrdering Facility: [facility] Address: [address] [place] [address] Performed By: #### 2 4321-2 ####[facility]ORATORYCLIA [id number] [address] STATES [facility] Urea nitrogen [Mass/Vol] 37 mg/dL High 9-24 [facility] Comment on above: Order Comment: Speci men Type: BLOOD SPECIMENOrdering Facility: [facility] Address: [address] [place] [address] Performed By: #### 2 4321-2 ####[facility]ORATORYCLIA [id number] [address] [place] C diff Tox gens Stl Ql MEGAN+p robeon 07-23-2021 C. difficile toxin genes MEGAN+probe Ql (Stl) Negative Normal Negative for C. difficile toxin by PCR [facility] Comment on above: Order Comment: Speci men Type: STOOL SPECIMENOrdering Facility: [facility] Address: [address] [place] [address] Performed By: #### 5 4067-4 ####[facility] LABORATORYCLIA [id number] [address] [place] [facility] CBC W Auto Differential pane l (Bld)on 07-23-2021 Basophils (Bld) [#/Vol] 0.07 10*3/uL Normal <0.11 [facility] Comment on above: Order Comment: Speci men Type: BLOOD SPECIMENOrdering Facility: [facility] Address: [address] [place] [address] Performed By: #### 5 7021-8 ####[facility]ORATORYCLIA [id number] [address] [place] Basophils/100 WBC (Bld) 0.5 % Normal [facility] Comment on above: Order Comment: Speci men Type: BLOOD SPECIMENOrdering Facility: [facility] Address: [address] [place] [address] Performed By: #### 5 7021-8 ####[facility] LABORATORYCLIA [id number] [address] STATES [facility] Differential cell count method Nom (Bld) Auto Normal [facility] Comment on above: Order Comment: Speci men Type: BLOOD SPECIMENOrdering Facility: [facility] Address: [address] [place] [address] Performed By: #### 5 7021-8 ####[facility]ORATORYCLIA [id number] [address] Eosinophils (Bld) [#/Vol] 10*3/uL Normal <0.46 [facility] Comment on above: Order Comment: Speci men Type: BLOOD SPECIMENOrdering Facility: [facility] Address: [address] [place] [address] Performed By: #### 5 7021-8 ####[facility]ORATORYCLIA [id number] [address] Eosinophils/100 WBC (Bld) 0.2 % Normal [facility] Comment on above: Order Comment: Speci men Type: BLOOD SPECIMENOrdering Facility: [facility] Address: [address] [place] [address] Performed By: #### 5 7021-8 ####[facility]ORATORYCLIA [id number] [address] Erythrocyte distribution width (RBC) [Ratio] 16.7 % High 11.5-15.0 [facility] Comment on above: Order Comment: Speci men Type: BLOOD SPECIMENOrdering Facility: [facility] Address: [address] [place] [address] Performed By: #### 5 7021-8 ####[facility]ORATORYCLIA [id number] [address] Hematocrit (Bld) [Volume fraction] 32.8 % Low 39.0-51.0 [facility] Comment on above: Order Comment: Speci men Type: BLOOD SPECIMENOrdering Facility: [facility] Address: [address] [place] [address] Performed By: #### 5 7021-8 ####[facility]ORATORYCLIA [id number] [address] [place] Hemoglobin (Bld) [Mass/Vol] 9.7 g/dL Low 13.0-17.0 [facility] Comment on above: Order Comment: Speci men Type: BLOOD SPECIMENOrdering Facility: [facility] Address: [address] [place] [address] Performed By: #### 5 7021-8 ####[facility]ATORYCLIA [id number] [place] [address] [place] IMMATURE GRAN % 0.7 % Normal [facility] Comment on above: Order Comment: Speci men Type: BLOOD SPECIMENOrdering Facility: [facility] Address: [address] [place] [address] Performed By: #### 5 7021-8 ####[facility]ORYCLIA [id number] [address] [place] [facility] IMMATURE GRAN ABS 0.09 k/uL Normal <0.10 [facility] Comment on above: Order Comment: Speci men Type: BLOOD SPECIMENOrdering Facility: [facility] Address: [address] [place] [address] Performed By: #### 5 7021-8 ####[facility]ORATORYCLIA [id number] [place] [address] [place] Lymphocytes (Bld) [#/Vol] 1.94 10*3/uL Normal 1.00-4.00 [facility] Comment on above: Order Comment: Speci men Type: BLOOD SPECIMENOrdering Facility: [facility] Address: [address] [place] [address] Performed By: #### 5 7021-8 ####[facility]ORYCLIA [id number] [place] [address] [place] Lymphocytes/100 WBC (Bld) 14.6 % Normal [facility] Comment on above: Order Comment: Speci men Type: BLOOD SPECIMENOrdering Facility: [facility] Address: [address] [place] [address] Performed By: #### 5 7021-8 ####[facility]ATORYCLIA [id number] [address] MCH (RBC) [Entitic mass] 27.2 pg Normal 26.0-34.0 [facility] Comment on above: Order Comment: Speci men Type: BLOOD SPECIMENOrdering Facility: [facility] Address: [address] [place] [address] Performed By: #### 5 7021-8 ####[facility]ORATORYCLIA [id number] [address] [place] MCHC (RBC) [Mass/Vol] 29.6 g/dL Low 30.5-36.0 [facility] Comment on above: Order Comment: Speci men Type: BLOOD SPECIMENOrdering Facility: [facility] Address: [address] [place] [address] Performed By: #### 5 7021-8 ####[facility] LABORATORYCLIA [id number] [address] [place] [facility] MCV (RBC) [Entitic vol] 92.1 fL Normal 80.0-100.0 [facility] Comment on above: Order Comment: Speci men Type: BLOOD SPECIMENOrdering Facility: [facility] Address: [address] [place] [address] Performed By: #### 5 7021-8 ####[facility]ORATORYCLIA [id number] [address] [place] [facility] Monocytes (Bld) [#/Vol] 0.74 10*3/uL Normal <0.87 [facility] Comment on above: Order Comment: Speci men Type: BLOOD SPECIMENOrdering Facility: [facility] Address: [address] [place] [address] Performed By: #### 5 7021-8 ####[facility]ORATORYCLIA [id number] [address] Monocytes/100 WBC (Bld) 5.6 % Normal [facility] Comment on above: Order Comment: Speci men Type: BLOOD SPECIMENOrdering Facility: [facility] Address: [address] [address] Performed By: #### 5 7021-8 ####[facility]ATORYCLIA [id number] [address] [place] Neutrophils (Bld) [#/Vol] 10.43 10*3/uL High 1.45-7.50 [facility] Comment on above: Order Comment: Speci men Type: BLOOD SPECIMENOrdering Facility: [facility] Address: [address] [place] [address] Performed By: #### 5 7021-8 ####[facility]ORATORYCLIA [id number] [address] Neutrophils/100 WBC (Bld) 78.4 % Normal [facility] Comment on above: Order Comment: Speci men Type: BLOOD SPECIMENOrdering Facility: [facility] Address: [address] [place] [address] Performed By: #### 5 7021-8 ####[facility] LABORATORYCLIA [id number] [address] STATES [facility] Nucleated RBC (Bld) [#/Vol] 10*3/uL Normal <0.01 [facility] Comment on above: Order Comment: Speci men Type: BLOOD SPECIMENOrdering Facility: [facility] Address: [address] [place] [address] Performed By: #### 5 7021-8 ####[facility] LABORATORYCLIA [id number] [address] [place] Nucleated RBC/100 WBC (Bld) [Ratio] 0.0 /100 WBC Normal [facility] Comment on above: Order Comment: Speci men Type: BLOOD SPECIMENOrdering Facility: [facility] Address: [address] [place] [address] Performed By: #### 5 7021-8 ####[facility] LABORATORYCLIA [id number] [address] [place] Platelet mean volume (Bld) [Entitic vol] 11.0 fL Normal 9.0-12.7 [facility] Comment on above: Order Comment: Speci men Type: BLOOD SPECIMENOrdering Facility: [facility] Address: [address] [place] [address] Performed By: #### 5 7021-8 ####[facility] LABORATORYCLIA [id number] [address] [place] Platelets (Bld) [#/Vol] 381 10*3/uL Normal 150-400 [facility] Comment on above: Order Comment: Speci men Type: BLOOD SPECIMENOrdering Facility: [facility] Address: [address] [place] [address] Performed By: #### 5 7021-8 ####[facility] LABORATORYCLIA [id number] [place] [address] [place] RBC (Bld) [#/Vol] 3.56 10*6/uL Low 4.20-6.00 [facility] Comment on above: Order Comment: Speci men Type: BLOOD SPECIMENOrdering Facility: [facility] Address: [address] [place] [address] Performed By: #### 5 7021-8 ####[facility]ORATORYCLIA [id number] [address] OF [facility] WBC (Bld) [#/Vol] 13.29 10*3/uL High 3.70-11.00 [facility] Comment on above: Order Comment: Speci men Type: BLOOD SPECIMENOrdering Facility: [facility] Address: [address] [place] [address] Performed By: #### 5 7021-8 ####[facility] LABORATORYCLIA [id number] [address] [place] [facility] CONSULT PROGon 07-23-2021 CONSULT PROG Normal [facility] CONSULT PROG Normal [facility] CSF MANUAL DIFFon 07-23-2021 DIF TTL, CSF 100 cells counted Normal [facility] Comment on above: Order Comment: Speci men Type: CEREBROSPINAL FLUIDOrdering Facility: [facility] Address: [address] [place] [address] Performed By: #### L [id number], NLC2037, 73353-2 ####[facility] LABORATORYCLIA [id number] [place] [address] [place] LYMPH%, CSF 2 % Low 50-90 [facility] Comment on above: Order Comment: Speci men Type: CEREBROSPINAL FLUIDOrdering Facility: [facility] Address: [address] [place] [address] Performed By: #### L [id number], BPP4764, 38867-5 ####[facility] LABORATORYCLIA [id number] [place] [address] [place] MONO%, CSF 9 % Low 10-50 [facility] Comment on above: Order Comment: Speci men Type: CEREBROSPINAL FLUIDOrdering Facility: [facility] Address: [address] [place] [address] Performed By: #### L UL1783, UPP5668, 49781-6 ####[facility] LABORATORYCLIA [id number] [place] [address] [place] NEUT%, CSF 89 % High 0-3 [facility] Comment on above: Order Comment: Speci men Type: CEREBROSPINAL FLUIDOrdering Facility: [facility] Address: [address] [place] [address] Performed By: #### L [id number], [id number], 92646-9 ####[facility]ORATORYCLIA [id number] [address] CSF PATHOLOGIST INTERP (LAB REFLEX ORDER-NO BILL)on 07-23-2021 CSF STAFF REVIEW Negative for maligna nt cells. Numerous bacterial organisms present, cocci in pairs and chains. Recommend correlation with CSF culture results. Normal [facility] Comment on above: Order Comment: Speci men Type: CEREBROSPINAL FLUIDOrdering Facility: [facility] Address: [address] [place] [address] Performed By: #### L AP6814, EYR1091, 76850-8 ####[facility] LABORATORYCLIA [id number] [address] Pathologist name Reviewed by Amador Stevens MD Normal [facility] Comment on above: Order Comment: Speci men Type: CEREBROSPINAL FLUIDOrdering Facility: [facility] Address: [address] [place] [address] Performed By: #### L AX5849, BLA4979, 76455-6 ####[facility]ORYCLIA [id number] [address] [place] CT BRAIN WO IVCONon 07-24-19 CT BRAIN WO IVCON Normal [facility] Cell count panel (CSF)on Clarity (CSF) Clear Normal Clear [facility] Comment on above: Order Comment: Speci men Type: CEREBROSPINAL FLUIDOrdering Facility: [facility] Address: [address] [place] [address] Performed By: #### L AL1935, YNF0086, 68782-8 ####[facility] LABORATORYCLIA [id number] [address] Clarity (Unsp spec) Not Indicated Normal Clear [facility] Comment on above: Order Comment: Speci men Type: CEREBROSPINAL FLUIDOrdering Facility: [facility] Address: [address] [place] [address] Performed By: #### L LC8712, JCT9132, 93316-3 ####[facility]ORATORYCLIA [id number] [address] [place] Color (CSF) Colorless Normal Colorless [facility] Comment on above: Order Comment: Speci men Type: CEREBROSPINAL FLUIDOrdering Facility: [facility] Address: [address] [place] [address] Performed By: #### L [id number], JXF3968, 46309-3 ####[facility] LABORATORYCLIA [id number] [address] [place] Color (Spun CSF) Not Indicated Normal Colorless [facility] Comment on above: Order Comment: Speci men Type: CEREBROSPINAL FLUIDOrdering Facility: [facility] Address: [address] [place] [address] Performed By: #### L OW9957, PAN7391, 08789-2 ####[facility]ORATORYCLIA [id number] [address] STATES [place] [facility] CSF TUBE [employer]BER [employer] Normal [facility] Comment on above: Order Comment: Speci men Type: CEREBROSPINAL FLUIDOrdering Facility: [facility] Address: [address] [place] [address] Performed By: #### L VQ6202, FCW9261, 57377-6 ####[facility]ORATORYCLIA [id number] [place] [address] [place] RBC Manual cnt (CSF) [#/Vol] 7 cells/uL High 0-5 [facility] Comment on above: Order Comment: Speci men Type: CEREBROSPINAL FLUIDOrdering Facility: [facility] Address: [address] [place] [address] Performed By: #### L EG2371, AYV4352, 27102-0 ####[facility]ORATORYCLIA [id number] [address] [place] [facility] WBC Manual cnt (CSF) [#/Vol] 193 cells/uL High 0-5 [facility] Comment on above: Order Comment: Speci men Type: CEREBROSPINAL FLUIDOrdering Facility: [facility] Address: [address] [place] [address] Performed By: #### L RF2638, QIE9580, 70778-7 ####[facility] LABORATORYCLIA [id number] [place] [address] [place] Glucose CSF-mCncon 2 Glucose (CSF) [Mass/Vol] 81 mg/dL High 40-70 [facility] Comment on above: Order Comment: Speci men Type: CEREBROSPINAL FLUIDOrdering Facility: [facility] Address: [address] [place] [address] Result Comment: Lumb ar CSF glucose values of healthy patients are approximately 60% of the plasma values and must always be compared with a concurrently measured plasma value for adequate clinical interpretation.References: 1. Glucose HK (GLUC3) [package insert V 12.0 [place]]. [employer], [place], [place]. September 2015. 2. Michelle Moore, Michelle Manjarrez (2015). Chapter 7: Glucose and Lactate. Marianela Alcocer al.(eds.), Cerebrospinal Fluid in Clinical Neurology. [place]: [place]. Performed By: #### 2 342-4, 2880-3 ####[facility] LABORATORYCLIA [id number] [address] NURSING PROGon 07-23-2021 NURSING PROG Normal [facility] NURSING PROG Normal [facility] Prot CSF-mCncon 07-23-2021 Protein (CSF) [Mass/Vol] 68 mg/dL High 15-45 [facility] Comment on above: Order Comment: Speci men Type: CEREBROSPINAL FLUIDOrdering Facility: [facility] Address: [address] [place] [address] Performed By: #### 2 342-4, 2880-3 ####[facility] LABORATORYCLIA [id number] [address] Urinalysis complete panel (U )on 07-23-2021 Bilirubin Ql (U) Negative Normal Negative [facility] Comment on above: Order Comment: Speci men Type: URINE SPECIMENOrdering Facility: [facility] Address: [address] [place] [address] Performed By: #### 2 4356-8 ####[facility]ORATORYCLIA [id number] [address] Clarity (Unsp spec) Clear Normal Clear [facility] Comment on above: Order Comment: Speci men Type: URINE SPECIMENOrdering Facility: [facility] Address: [address] [place] [address] Performed By: #### 2 4356-8 ####[facility]ORATORYCLIA [id number] [address] Color (U) Light Yellow Normal yellow [facility] Comment on above: Order Comment: Speci men Type: URINE SPECIMENOrdering Facility: [facility] Address: [address] [place] [address] Performed By: #### 2 4356-8 ####[facility]ORATORYCLIA [id number] [address] [place] Glucose Test strip (U) [Mass/Vol] Negative Normal Negative [facility] Comment on above: Order Comment: Speci men Type: URINE SPECIMENOrdering Facility: [facility] Address: [address] [place] [address] Performed By: #### 2 4356-8 ####[facility]ORATORYCLIA [id number] [address] [place] Hemoglobin Ql (U) Negative Normal Negative [facility] Comment on above: Order Comment: Speci men Type: URINE SPECIMENOrdering Facility: [facility] Address: [address] [place] [address] Performed By: #### 2 4356-8 ####[facility] LABORATORYCLIA [id number] [address] [place] Ketones Ql (U) Negative Normal Negative [facility] Comment on above: Order Comment: Speci men Type: URINE SPECIMENOrdering Facility: [facility] Address: [address] [place] [address] Performed By: #### 2 4356-8 ####[facility]ORYCLIA [id number] [address] [place] Leukocyte esterase Test strip Ql (U) Negative Normal Negative [facility] Comment on above: Order Comment: Speci men Type: URINE SPECIMENOrdering Facility: [facility] Address: [address] [place] [address] Performed By: #### 2 4356-8 ####[facility] LABORATORYCLIA [id number] [place] [address] [place] Nitrite Ql (U) Negative Normal Negative [facility] Comment on above: Order Comment: Speci men Type: URINE SPECIMENOrdering Facility: [facility] Address: [address] [place] [address] Performed By: #### 2 4356-8 ####[facility] LABORATORYCLIA [id number] [address] pH (U) 6.0 [pH] Normal 5.0-8.0 [facility] Comment on above: Order Comment: Speci men Type: URINE SPECIMENOrdering Facility: [facility] Address: [address] [place] [address] Performed By: #### 2 4356-8 ####[facility] LABORATORYCLIA [id number] [address] STATES [facility] Protein (U) [Mass/Vol] 1+ Abnormal Negative [facility] Comment on above: Order Comment: Speci men Type: URINE SPECIMENOrdering Facility: [facility] Address: [address] [place] [address] Performed By: #### 2 4356-8 ####[facility] LABORATORYCLIA [id number] [address] STATES [facility] RBC LM.HPF (Urine sed) [#/Area] 0-3 /HPF Normal 0-3 /HPF [facility] Comment on above: Order Comment: Speci men Type: URINE SPECIMENOrdering Facility: [facility] Address: [address] [place] [address] Performed By: #### 2 4356-8 ####[facility] LABORATORYCLIA [id number] [address] Specific gravity (U) [Rel density] 1.018 Normal 1.005-1.030 [facility] Comment on above: Order Comment: Speci men Type: URINE SPECIMENOrdering Facility: [facility] Address: [address] [place] [address] Performed By: #### 2 4356-8 ####[facility] LABORATORYCLIA [id number] [address] Urobilinogen Ql (U) Normal Normal Negative [facility] Comment on above: Order Comment: Speci men Type: URINE SPECIMENOrdering Facility: [facility] Address: [address] [place] [address] Performed By: #### 2 4356-8 ####[facility] LABORATORYCLIA [id number] [address] WBC LM.HPF (Urine sed) [#/Area] 0-5 /HPF Normal 0-5 /HPF [facility] Comment on above: Order Comment: Speci men Type: URINE SPECIMENOrdering Facility: [facility] Address: [address] [place] [address] Performed By: #### 2 4356-8 ####[facility] LABORATORYCLIA [id number] [address] Vancomycin random [Mass/Vol] on 07-23-2021 Vancomycin [Mass/Vol] 12.9 ug/mL Normal 10.0-20.0 [facility] Comment on above: Order Comment: Speci men Type: BLOOD SPECIMENOrdering Facility: [facility] Address: [address] [place] [address] Result Comment: Refe rence ranges and high/low indicator flags are provided as general guidelines only. The treating physician must determine appropriate target levels/dosing based on the specific clinical situation. Performed By: #### 4 091-5 ####[facility] LABORATORYCLIA [id number] [address] OF [facility] XR CHEST 1V FRONTALon 2021 XR CHEST 1V FRONTAL Normal [facility] XR CHEST 1V FRONTAL Normal [facility] aPTT PPPon 07-23-2021 aPTT Coag (PPP) [Time] 32.3 s Normal 23.0-32.4 [facility] Comment on above: Order Comment: Speci men Type: BLOOD SPECIMENOrdering Facility: [facility] Address: [address] [place] [address] Performed By: #### 1 4979-9 ####[facility] [id number] [address] [place] aPTT Coag (PPP) [Time] 57.9 s High 23.0-32.4 [facility] Comment on above: Order Comment: Speci men Type: BLOOD SPECIMENOrdering Facility: [facility] Address: [address] [place] [address] Performed By: #### 1 4979-9 ####[facility]ORATORYCLIA [id number] [address] aPTT Coag (PPP) [Time] 46.3 s High 23.0-32.4 [facility] Comment on above: Order Comment: Speci men Type: BLOOD SPECIMENOrdering Facility: [facility] Address: [address] [place] [address] Performed By: #### 1 4979-9 ####[facility] LABORATORYCLIA [id number] [place] [address] [place] Basic metabolic 2000 panelon 07-22-2021 Anion gap [Moles/Vol] 8 mmol/L Low -18 [facility] Comment on above: Order Comment: Speci men Type: BLOOD SPECIMENOrdering Facility: [facility] Address: [address] [place] [address] Performed By: #### 2 4321-2 ####[facility] LABORATORYCLIA [id number] [place] [address] [place] Calcium [Mass/Vol] 9.5 mg/dL Normal 8.5-10.2 [facility] Comment on above: Order Comment: Speci men Type: BLOOD SPECIMENOrdering Facility: [facility] Address: [address] [place] [address] Performed By: #### 2 4321-2 ####[facility] LABORATORYCLIA [id number] [address] [place] Chloride [Moles/Vol] 105 mmol/L Normal 97-105 [facility] Comment on above: Order Comment: Speci men Type: BLOOD SPECIMENOrdering Facility: [facility] Address: [address] [place] [address] Performed By: #### 2 4321-2 ####[facility] LABORATORYCLIA [id number] [place] [address] [place] CO2 [Moles/Vol] 32 mmol/L High 22-30 [facility] Comment on above: Order Comment: Speci men Type: BLOOD SPECIMENOrdering Facility: [facility] Address: [address] [place] [address] Performed By: #### 2 4321-2 ####[facility] LABORATORYCLIA [id number] [address] [place] [facility] Creatinine [Mass/Vol] 0.75 mg/dL Normal 0.73-1.22 [facility] Comment on above: Order Comment: Speci men Type: BLOOD SPECIMENOrdering Facility: [facility] Address: [address] [place] [address] Performed By: #### 2 4321-2 ####[facility] LABORATORYCLIA [id number] [address] ESTIMATED GLOMERULAR FILTRATION RATE 98 mL/min/1.73m??? Normal >=60 [facility] Comment on above: Order Comment: Speci men Type: BLOOD SPECIMENOrdering Facility: [facility] Address: [address] [place] [address] Result Comment: Luzmaria mated Glomerular Filtration Rate (eGFR) is calculated using the 2020 CKD-EPI creatinine equation. This equation utilizes serum creatinine, sex, and age as parameters. The creatinine assay has traceable calibration to isotope dilution-mass spectrometry. Refer to KDIGO guidelines for clinical interpretation. In patients with unstable renal function, e.g. those with acute kidney injury, the eGFR may not accurately reflect actual GFR. Performed By: #### 2 4321-2 ####[facility] LABORATORYCLIA [id number] [address] [place] Glucose [Mass/Vol] 128 mg/dL High 74-99 [facility] Comment on above: Order Comment: Speci men Type: BLOOD SPECIMENOrdering Facility: [facility] Address: [address] [place] [address] Result Comment: The [place] Diabetes Association (ADA) provides guidance for cutoff values for fasting glucose and random glucose. The ADA defines fasting as no caloric intake for at least 8 hours. Fasting plasma glucose results between 100 to 125 mg/dL indicate increased risk for diabetes (prediabetes).Fasting plasma glucose results greater than or equal to 126 mg/dL meet the criteria for diagnosis of diabetes. In the absence of unequivocal hyperglycemia, results should be confirmed by repeat testing. In a patient with classic symptoms of hyperglycemia or hyperglycemic crisis, random plasma glucose results greater than or equal to 200 mg/dL meet the criteria for diagnosis of diabetes.Reference: Standards of Medical Care in Diabetes 2016, [place] [employer] Association. Diabetes Care. 2016.39(Suppl 1). Performed By: #### 2 4321-2 ####[facility] LABORATORYCLIA [id number] [place] [address] [place] Potassium [Moles/Vol] 3.7 mmol/L Normal 3.7-5.1 [facility] Comment on above: Order Comment: [facility] Type: BLOOD SPECIMENOrdering Facility: [facility] Address: [address] [place] [address] Performed By: #### 2 4321-2 ####[facility] LABORATORYCLIA [id number] [place] [address] [place] Sodium [Moles/Vol] 145 mmol/L High 136-144 [facility] Comment on above: Order Comment: Johni men Type: BLOOD SPECIMENOrdering Facility: [facility] Address: [address] [address] Performed By: #### 2 4321-2 ####[facility] LABORATORYCLIA [id number] [place] [address] [place] Urea nitrogen [Mass/Vol] 39 mg/dL High 9-24 [facility] Comment on above: Order Comment: [facility] Type: BLOOD SPECIMENOrdering Facility: [facility] Address: [address] [address] Performed By: #### 2 4321-2 ####[facility] LABORATORYCLIA [id number] [place] [id number] [facility] CASE MANAGEMon 07-22-2021 CASE MANAGEM Normal [facility] CBC W Auto Differential pane l (Bld)on 07-22-2021 Basophils (Bld) [#/Vol] 0.06 10*3/uL Normal <0.11 [facility] Comment on above: Order Comment: Speci men Type: BLOOD SPECIMENOrdering Facility: [facility] Address: [address] [place] [address] Performed By: #### 5 7021-8 ####[facility] LABORATORYCLIA [id number] [address] STATES [facility] Basophils/100 WBC (Bld) 0.5 % Normal [facility] Comment on above: Order Comment: Speci men Type: BLOOD SPECIMENOrdering Facility: [facility] Address: [address] [place] [address] Performed By: #### 5 7021-8 ####[facility] LABORATORYCLIA [id number] [address] Differential cell count method Nom (Bld) Auto Normal [facility] Comment on above: Order Comment: Speci men Type: BLOOD SPECIMENOrdering Facility: [facility] Address: [address] [place] [address] Performed By: #### 5 7021-8 ####[facility] LABORATORYCLIA [id number] [address] [place] Eosinophils (Bld) [#/Vol] 0.44 10*3/uL Normal <0.46 [facility] Comment on above: Order Comment: Speci men Type: BLOOD SPECIMENOrdering Facility: [facility] Address: [address] [place] [address] Performed By: #### 5 7021-8 ####[facility] LABORATORYCLIA [id number] [address] Eosinophils/100 WBC (Bld) 3.9 % Normal [facility] Comment on above: Order Comment: Speci men Type: BLOOD SPECIMENOrdering Facility: [facility] Address: [address] [place] [address] Performed By: #### 5 7021-8 ####[facility] LABORATORYCLIA [id number] [address] Erythrocyte distribution width (RBC) [Ratio] 17.0 % High 11.5-15.0 [facility] Comment on above: Order Comment: Speci men Type: BLOOD SPECIMENOrdering Facility: [facility] Address: [address] [place] [address] Performed By: #### 5 7021-8 ####[facility] LABORATORYCLIA [id number] [address] Hematocrit (Bld) [Volume fraction] 32.0 % Low 39.0-51.0 [facility] Comment on above: Order Comment: Speci men Type: BLOOD SPECIMENOrdering Facility: [facility] Address: [address] [place] [address] Performed By: #### 5 7021-8 ####[facility] LABORATORYCLIA [id number] [address] Hemoglobin (Bld) [Mass/Vol] 9.3 g/dL Low 13.0-17.0 [facility] Comment on above: Order Comment: Speci men Type: BLOOD SPECIMENOrdering Facility: [facility] Address: [address] [place] [address] Performed By: #### 5 7021-8 ####[facility] LABORATORYCLIA [id number] [address] IMMATURE GRAN % 0.5 % Normal [facility] Comment on above: Order Comment: Speci men Type: BLOOD SPECIMENOrdering Facility: [facility] Address: [address] [place] [address] Performed By: #### 5 7021-8 ####[facility] LABORATORYCLIA [id number] [address] IMMATURE GRAN ABS 0.06 k/uL Normal <0.10 [facility] Comment on above: Order Comment: Speci men Type: BLOOD SPECIMENOrdering Facility: [facility] Address: [address] [place] [address] Performed By: #### 5 7021-8 ####[facility] LABORATORYCLIA [id number] [address] [place] Lymphocytes (Bld) [#/Vol] 1.83 10*3/uL Normal 1.00-4.00 [facility] Comment on above: Order Comment: Speci men Type: BLOOD SPECIMENOrdering Facility: [facility] Address: [address] [place] [address] Performed By: #### 5 7021-8 ####[facility] LABORATORYCLIA [id number] [address] Lymphocytes/100 WBC (Bld) 16.1 % Normal [facility] Comment on above: Order Comment: Speci men Type: BLOOD SPECIMENOrdering Facility: [facility] Address: [address] [place] [address] Performed By: #### 5 7021-8 ####[facility] LABORATORYCLIA [id number] [address] MCH (RBC) [Entitic mass] 27.0 pg Normal 26.0-34.0 [facility] Comment on above: Order Comment: Speci men Type: BLOOD SPECIMENOrdering Facility: [facility] Address: [address] [place] [address] Performed By: #### 5 7021-8 ####[facility] LABORATORYCLIA [id number] [address] MCHC (RBC) [Mass/Vol] 29.1 g/dL Low 30.5-36.0 [facility] Comment on above: Order Comment: Speci men Type: BLOOD SPECIMENOrdering Facility: [facility] Address: [address] [place], [place] [address] Performed By: #### 5 7021-8 ####[facility]ORATORYCLIA [id number] [address] [place] MCV (RBC) [Entitic vol] 92.8 fL Normal 80.0-100.0 [facility] Comment on above: Order Comment: Speci men Type: BLOOD SPECIMENOrdering Facility: [facility] Address: [address] [place] [address] Performed By: #### 5 7021-8 ####[facility]ORATORYCLIA [id number] [address] [place] Monocytes (Bld) [#/Vol] 0.87 10*3/uL High <0.87 [facility] Comment on above: Order Comment: Speci men Type: BLOOD SPECIMENOrdering Facility: [facility] Address: [address] [place] [address] Performed By: #### 5 7021-8 ####[facility]ORATORYCLIA [id number] [address] [place] Monocytes/100 WBC (Bld) 7.6 % Normal [facility] Comment on above: Order Comment: Speci men Type: BLOOD SPECIMENOrdering Facility: [facility] Address: [address] [place] [address] Performed By: #### 5 7021-8 ####[facility] LABORATORYCLIA [id number] [place] [address] [place] Neutrophils (Bld) [#/Vol] 8.12 10*3/uL High 1.45-7.50 [facility] Comment on above: Order Comment: Speci men Type: BLOOD SPECIMENOrdering Facility: [facility] Address: [address] [place] [address] Performed By: #### 5 7021-8 ####[facility] LABORATORYCLIA [id number] [address] [place] Neutrophils/100 WBC (Bld) 71.4 % Normal [facility] Comment on above: Order Comment: Speci men Type: BLOOD SPECIMENOrdering Facility: [facility] Address: [address] Performed By: #### 5 7021-8 ####[facility] LABORATORYCLIA [id number] [address] [place] Nucleated RBC (Bld) [#/Vol] 10*3/uL Normal <0.01 [facility] Comment on above: Order Comment: Speci men Type: BLOOD SPECIMENOrdering Facility: [facility] Address: [address] [place] [address] Performed By: #### 5 7021-8 ####[facility]ORATORYCLIA [id number] [address] [place] Nucleated RBC/100 WBC (Bld) [Ratio] 0.0 /100 WBC Normal [facility] Comment on above: Order Comment: Speci men Type: BLOOD SPECIMENOrdering Facility: [facility] Address: [address] [place] [address] Performed By: #### 5 7021-8 ####[facility]ORATORYCLIA [id number] [address] [place] Platelet mean volume (Bld) [Entitic vol] 10.8 fL Normal 9.0-12.7 [facility] Comment on above: Order Comment: Speci men Type: BLOOD SPECIMENOrdering Facility: [facility] Address: [address] Performed By: #### 5 7021-8 ####[facility] LABORATORYCLIA [id number] [address] [place] Platelets (Bld) [#/Vol] 362 10*3/uL Normal 150-400 [facility] Comment on above: Order Comment: Speci men Type: BLOOD SPECIMENOrdering Facility: [facility] Address: [address] [place] [address] Performed By: #### 5 7021-8 ####[facility] LABORATORYCLIA [id number] [place] [address] [place] RBC (Bld) [#/Vol] 3.45 10*6/uL Low 4.20-6.00 [facility] Comment on above: Order Comment: Speci men Type: BLOOD SPECIMENOrdering Facility: [facility] Address: [address] [place] [address] Performed By: #### 5 7021-8 ####[facility]ORATORYCLIA [id number] [address] [place] WBC (Bld) [#/Vol] 11.38 10*3/uL High 3.70-11.00 [facility] Comment on above: Order Comment: Speci men Type: BLOOD SPECIMENOrdering Facility: [facility] Address: [address] [place] [address] Performed By: #### 5 7021-8 ####[facility]CL[facility] [id number] [address] [facility] [facility] 07-22 Magnesium [Mass/Vol] 2.3 mg/dL Normal 1.7-2.3 [facility] Comment on above: Order Comment: Speci men Type: BLOOD SPECIMENOrdering Facility: [facility] Address: [address] [place] [address] Performed By: #### 1 9123-9, 2777-1, 63821-9 ####[facility] LABORATORYCLIA [id number] [place] [address] [place] NT-proBNP SerPl-mCncon 07-22 Natriuretic peptide.B prohormone N-Terminal [Mass/Vol] 328 pg/mL High <125 [facility] Comment on above: Order Comment: Speci men Type: BLOOD SPECIMENOrdering Facility: [facility] Address: [address] [place] [address] Performed By: #### 1 9123-9, 2777-1, 37401-5 ####[facility] LABORATORYCLIA [id number] [address] [place] NURSING PROGon 07-22-2021 NURSING PROG Normal [facility] NUTRITIONon 07-22-2021 NUTRITION Normal [facility] Phosphate SerPl-mCncon 07-22 Phosphate [Mass/Vol] 3.5 mg/dL Normal 2.7-4.8 [facility] Comment on above: Order Comment: Speci men Type: BLOOD SPECIMENOrdering Facility: [facility] Address: [address] [place] [address] Performed By: #### 1 9123-9, 2777-1, 65064-4 ####[facility] LABORATORYCLIA [id number] [address] THERAPY NTon 07-22-2021 THERAPY NT Normal [facility] THERAPY NT Normal [facility] aPTT PPPon 07-22-2021 aPTT Coag (PPP) [Time] 50.1 s High 23.0-32.4 [facility] Comment on above: Order Comment: Speci men Type: BLOOD SPECIMENOrdering Facility: [facility] Address: [address] [place] [address] Performed By: #### 1 4979-9 ####[facility] LABORATORYCLIA [id number] [address] [place] ALLIED HEALTHon 07-21-2021 ALLIED HEALTH Normal [facility] Bacteria Spec Resp Culton Bacteria identified Respiratory culture Nom (Unsp spec) Abnormal [facility] Comment on above: Performed By: #### 3 2355-0 ####[facility] LABORATORYCLIA [id number] [place] [address] [place] Basic metabolic 2000 panelon 07-21-2021 Anion gap [Moles/Vol] 9 mmol/L Normal 01-22 [facility] Comment on above: Order Comment: Speci men Type: BLOOD SPECIMENOrdering Facility: [facility] Address: [address] [place] [address] Performed By: #### 1 9123-9, 2777-1, 49554-6 ####[facility] LABORATORYCLIA [id number] [place] [address] [place] Calcium [Mass/Vol] 9.9 mg/dL Normal 8.5-10.2 [facility] Comment on above: Order Comment: Speci men Type: BLOOD SPECIMENOrdering Facility: [facility] Address: [address] [place] [address] Performed By: #### 1 9123-9, 27711-04, 63904-9 ####[facility]ORATORYCLIA [id number] [place] [address] [place] Chloride [Moles/Vol] 103 mmol/L Normal 97-105 [facility] Comment on above: Order Comment: Speci men Type: BLOOD SPECIMENOrdering Facility: [facility] Address: [address] [place] [address] Performed By: #### 1 9123-9, 2776-05, 38440-5 ####[facility] LABORATORYCLIA [id number] [place] [address] [place] CO2 [Moles/Vol] 33 mmol/L High 22-30 [facility] Comment on above: Order Comment: Speci men Type: BLOOD SPECIMENOrdering Facility: [facility] Address: [address] [place] [address] Performed By: #### 1 9123-9, 2776-05, ####[facility]ORATORYCLIA [id number] [place] [address] [place] Creatinine [Mass/Vol] 0.80 mg/dL Normal 0.73-1.22 [facility] Comment on above: Order Comment: Speci men Type: BLOOD SPECIMENOrdering Facility: [facility] Address: [address] [place] [address] Performed By: #### 1 9123-9, 27711-04, 09046-3 ####[facility] LABORATORYCLIA [id number] [address] [place] ESTIMATED GLOMERULAR FILTRATION RATE 96 mL/min/1.73m??? Normal >=60 [facility] Comment on above: Order Comment: Shira feldman Type: BLOOD SPECIMENOrdering Facility: [facility] Address: [address] [place] [address] Result Comment: Luzmaria mated Glomerular Filtration Rate (eGFR) is calculated using the 2020 CKD-EPI creatinine equation. This equation utilizes serum creatinine, sex, and age as parameters. The creatinine assay has traceable calibration to isotope dilution-mass spectrometry. Refer to KDIGO guidelines for clinical interpretation. In patients with unstable renal function, e.g. those with acute kidney injury, the eGFR may not accurately reflect actual GFR. Performed By: #### 1 9123-9, 2777-1, 73509-7 ####[facility]ITALCLIA [id number] [place] [address] [place] Glucose [Mass/Vol] 148 mg/dL High 74-99 [facility] Comment on above: Order Comment: Shira feldman Type: BLOOD SPECIMENOrdering Facility: [facility] Address: [address] [place] [address] Result Comment: The [place] [employer] (ADA) provides guidance for cutoff values for fasting glucose and random glucose. The ADA defines fasting as no caloric intake for at least 8 hours. Fasting plasma glucose results between 100 to 125 mg/dL indicate increased risk for diabetes (prediabetes).Fasting plasma glucose results greater than or equal to 126 mg/dL meet the criteria for diagnosis of diabetes. In the absence of unequivocal hyperglycemia, results should be confirmed by repeat testing. In a patient with classic symptoms of hyperglycemia or hyperglycemic crisis, random plasma glucose results greater than or equal to 200 mg/dL meet the criteria for diagnosis of diabetes.Reference: Standards of Medical Care in Diabetes 2016, [place] [employer]. Diabetes Care. 2016.39(Suppl 1). Performed By: #### 1 9123-9, 2777-1, 99438-8 ####[facility] LABORATORYCLIA [id number] [place] [address] [place] Potassium [Moles/Vol] 4.1 mmol/L Normal 3.7-5.1 [facility] Comment on above: Order Comment: Shira [facility] Type: BLOOD SPECIMENOrdering Facility: [facility] Address: [address] [place] [address] Performed By: #### 1 9123-9, 2777-, 72845-2 ####[facility] LABORATORYCLIA [id number] [address] [place] Sodium [Moles/Vol] 145 mmol/L High 136-144 [facility] Comment on above: Order Comment: Speci men Type: BLOOD SPECIMENOrdering Facility: [facility] Address: [address] [place] [address] Performed By: #### 1 9123-9, 2777, 69044-9 ####[facility]ORATORYCLIA [id number] [address] [place] [facility] Urea nitrogen [Mass/Vol] 40 mg/dL High 9-24 [facility] Comment on above: Order Comment: Speci men Type: BLOOD SPECIMENOrdering Facility: [facility] Address: [address] [place] [address] Performed By: #### 1 9123-9, 2777, 90229-7 ####[facility]ORATORYCLIA [id number] [address] [place] CBC W Auto Differential pane l (Bld)on 07-21-2021 Basophils (Bld) [#/Vol] 0.06 10*3/uL Normal <0.11 [facility] Comment on above: Order Comment: Speci men Type: BLOOD SPECIMENOrdering Facility: [facility] Address: [address] [place] [address] Performed By: #### 5 7021-8 ####[facility] LABORATORYCLIA [id number] [address] Basophils/100 WBC (Bld) 0.4 % Normal [facility] Comment on above: Order Comment: Speci men Type: BLOOD SPECIMENOrdering Facility: [facility] Address: [address] [place] [address] Performed By: #### 5 7021-8 ####[facility] LABORATORYCLIA [id number] [address] [place] Differential cell count method Nom (Bld) Auto Normal [facility] Comment on above: Order Comment: Speci men Type: BLOOD SPECIMENOrdering Facility: [facility] Address: [address] [place] [address] Performed By: #### 5 7021-8 ####[facility] LABORATORYCLIA [id number] [address] [place] Eosinophils (Bld) [#/Vol] 0.04 10*3/uL Normal <0.46 [facility] Comment on above: Order Comment: Speci men Type: BLOOD SPECIMENOrdering Facility: [facility] Address: [address] [place] [address] Performed By: #### 5 7021-8 ####[facility]ORATORYCLIA [id number] [address] Eosinophils/100 WBC (Bld) 0.3 % Normal [facility] Comment on above: Order Comment: Speci men Type: BLOOD SPECIMENOrdering Facility: [facility] Address: [address] [place] [address] Performed By: #### 5 7021-8 ####[facility] LABORATORYCLIA [id number] [address] [place] Erythrocyte distribution width (RBC) [Ratio] 17.0 % High 11.5-15.0 [facility] Comment on above: Order Comment: Speci men Type: BLOOD SPECIMENOrdering Facility: [facility] Address: [address] [place] [address] Performed By: #### 5 7021-8 ####[facility] LABORATORYCLIA [id number] [address] Hematocrit (Bld) [Volume fraction] 33.1 % Low 39.0-51.0 [facility] Comment on above: Order Comment: Speci men Type: BLOOD SPECIMENOrdering Facility: [facility] Address: [address] [place] [place] [address] Performed By: #### 5 7021-8 ####[facility]ORATORYCLIA [id number] [address] [place] Hemoglobin (Bld) [Mass/Vol] 9.7 g/dL Low 13.0-17.0 [facility] Comment on above: Order Comment: Speci men Type: BLOOD SPECIMENOrdering Facility: [facility] Address: [address] [place] [address] Performed By: #### 5 7021-8 ####[facility]ORATORYCLIA [id number] [address] IMMATURE GRAN % 0.5 % Normal [facility] Comment on above: Order Comment: Speci men Type: BLOOD SPECIMENOrdering Facility: [facility] Address: [address] [place] [address] Performed By: #### 5 7021-8 ####[facility]ORATORYCLIA [id number] [address] IMMATURE GRAN ABS 0.07 k/uL Normal <0.10 [facility] Comment on above: Order Comment: Speci men Type: BLOOD SPECIMENOrdering Facility: [facility] Address: [address] [place] [address] Performed By: #### 5 7021-8 ####[facility] LABORATORYCLIA [id number] [address] [place] Lymphocytes (Bld) [#/Vol] 1.99 10*3/uL Normal 1.00-4.00 [facility] Comment on above: Order Comment: Speci men Type: BLOOD SPECIMENOrdering Facility: [facility] Address: [address] [place] [address] Performed By: #### 5 7021-8 ####[facility]ORATORYCLIA [id number] [address] [place] Lymphocytes/100 WBC (Bld) 13.4 % Normal [facility] Comment on above: Order Comment: Speci men Type: BLOOD SPECIMENOrdering Facility: [facility] Address: [address] [place] [address] Performed By: #### 5 7021-8 ####[facility]ORATORYCLIA [id number] [address] MCH (RBC) [Entitic mass] 27.2 pg Normal 26.0-34.0 [facility] Comment on above: Order Comment: Speci men Type: BLOOD SPECIMENOrdering Facility: [facility] Address: [address] [place] [address] Performed By: #### 5 7021-8 ####[facility]ORATORYCLIA [id number] [address] MCHC (RBC) [Mass/Vol] 29.3 g/dL Low 30.5-36.0 [facility] Comment on above: Order Comment: Speci men Type: BLOOD SPECIMENOrdering Facility: [facility] Address: [address] [place] [address] Performed By: #### 5 7021-8 ####[facility]ORATORYCLIA [id number] [address] MCV (RBC) [Entitic vol] 92.7 fL Normal 80.0-100.0 [facility] Comment on above: Order Comment: Speci men Type: BLOOD SPECIMENOrdering Facility: [facility] Address: [address] [place] [address] Performed By: #### 5 7021-8 ####[facility]ORATORYCLIA [id number] [address] Monocytes (Bld) [#/Vol] 1.10 10*3/uL High <0.87 [facility] Comment on above: Order Comment: Speci men Type: BLOOD SPECIMENOrdering Facility: [facility] Address: [address] [place] [address] Performed By: #### 5 7021-8 ####[facility] LABORATORYCLIA [id number] [address] [place] Monocytes/100 WBC (Bld) 7.4 % Normal [facility] Comment on above: Order Comment: Speci men Type: BLOOD SPECIMENOrdering Facility: [facility] Address: [address] [place] [address] Performed By: #### 5 7021-8 ####[facility] LABORATORYCLIA [id number] [place] [address] [place] Neutrophils (Bld) [#/Vol] 11.61 10*3/uL High 1.45-7.50 [facility] Comment on above: Order Comment: Speci men Type: BLOOD SPECIMENOrdering Facility: [facility] Address: [address] [place] [address] Performed By: #### 5 7021-8 ####[facility]ORATORYCLIA [id number] [address] [place] Neutrophils/100 WBC (Bld) 78.0 % Normal [facility] Comment on above: Order Comment: Speci men Type: BLOOD SPECIMENOrdering Facility: [facility] Address: [address] [place] [address] Performed By: #### 5 7021-8 ####[facility]ORATORYCLIA [id number] [place] [address] [place] Nucleated RBC (Bld) [#/Vol] 10*3/uL Normal <0.01 [facility] Comment on above: Order Comment: Speci men Type: BLOOD SPECIMENOrdering Facility: [facility] Address: [address] [place] [address] Performed By: #### 5 7021-8 ####[facility] LABORATORYCLIA [id number] [address] [place] Nucleated RBC/100 WBC (Bld) [Ratio] 0.0 /100 WBC Normal [facility] Comment on above: Order Comment: Speci men Type: BLOOD SPECIMENOrdering Facility: [facility] Address: [address] [place] [address] Performed By: #### 5 7021-8 ####[facility] LABORATORYCLIA [id number] [address] [place] [facility] Platelet mean volume (Bld) [Entitic vol] 10.4 fL Normal 9.0-12.7 [facility] Comment on above: Order Comment: Speci men Type: BLOOD SPECIMENOrdering Facility: [facility] Address: [address] [place] [address] Performed By: #### 5 7021-8 ####[facility]ORATORYCLIA [id number] [address] [place] [facility] Platelets (Bld) [#/Vol] 396 10*3/uL Normal 150-400 [facility] Comment on above: Order Comment: Speci men Type: BLOOD SPECIMENOrdering Facility: [facility] Address: [address] [place] [address] Performed By: #### 5 7021-8 ####[facility]ORATORYCLIA [id number] [address] RBC (Bld) [#/Vol] 3.57 10*6/uL Low 4.20-6.00 [facility] Comment on above: Order Comment: Speci men Type: BLOOD SPECIMENOrdering Facility: [facility] Address: [address] [place] [address] Performed By: #### 5 7021-8 ####[facility]ORATORYCLIA [id number] [address] [place] WBC (Bld) [#/Vol] 14.87 10*3/uL High 3.70-11.00 [facility] Comment on above: Order Comment: Speci men Type: BLOOD SPECIMENOrdering Facility: [facility] Address: [address] [place] [address] Performed By: #### 5 7021-8 ####[facility]ORATORYCLIA [id number] [address] Gas and Carbon monoxide pane l (BldV)on 07-21-2021 Base excess Calc (BldV) [Moles/Vol] 7 mmol/L High 0-2 [facility] Comment on above: Order Comment: Speci men Type: VENOUS BLOOD SPECIMENOrdering Facility: [facility] Address: [address] [place] [address] Performed By: #### 2 4344-4 ####[facility] LABORATORYCLIA [id number] [address] [place] [facility] Body temperature 98.6 [degF] Normal [facility] Comment on above: Order Comment: Speci men Type: VENOUS BLOOD SPECIMENOrdering Facility: [facility] Address: [address] [place] [address] Performed By: #### 2 4344-4 ####[facility] LABORATORYCLIA [id number] [address] [place] CALCIUM IONIZED, PH CORRECTED 1.21 mmol/L Normal 1.08-1.30 [facility] Comment on above: Order Comment: Speci men Type: VENOUS BLOOD SPECIMENOrdering Facility: [facility] Address: [address] [place] [address] Performed By: #### 2 4344-4 ####[facility] LABORATORYCLIA [id number] [address] [place] Calcium.ionized (BldV) [Mass/Vol] 1.23 mmol/L Normal 1.08-1.30 [facility] Comment on above: Order Comment: Speci men Type: VENOUS BLOOD SPECIMENOrdering Facility: [facility] Address: [address] [place] [address] Performed By: #### 2 4344-4 ####[facility] [facility]ORATORYCLIA [id number] [address] [place] Carboxyhemoglobin (BldV) [Mass fraction] 2.3 % High 0.0-2.0 [facility] Comment on above: Order Comment: Speci men Type: VENOUS BLOOD SPECIMENOrdering Facility: [facility] Address: [address] [place] [address] Result Comment: Carb oxyhemoglobin Reference Range for Smokers: 2.0-8.0% Performed By: #### 2 4344-4 ####[facility]ORATORYCLIA [id number] [address] [place] CO2 (BldV) [Partial pressure] 58 mm[Hg] High 42-55 [facility] Comment on above: Order Comment: Speci men Type: VENOUS BLOOD SPECIMENOrdering Facility: [facility] Address: [address] [place] [address] Performed By: #### 2 4344-4 ####[facility]ORATORYCLIA [id number] [address] STATES [facility] CO2 [Moles/Vol] 31 mmol/L High 25-29 [facility] Comment on above: Order Comment: Speci men Type: VENOUS BLOOD SPECIMENOrdering Facility: [facility] Address: [address] [place] [address] Performed By: #### 2 4344-4 ####[facility]ORATORYCLIA [id number] [address] [place] Glucose [Mass/Vol] 146 mg/dL High 60-105 [facility] Comment on above: Order Comment: Speci men Type: VENOUS BLOOD SPECIMENOrdering Facility: [facility] Address: [address] [place] [address] Performed By: #### 2 4344-4 ####[facility]ORATORYCLIA [id number] [place] [address] [place] HCO3 (Bld) [Moles/Vol] 33 mmol/L High 24-28 [facility] Comment on above: Order Comment: Speci men Type: VENOUS BLOOD SPECIMENOrdering Facility: [facility] Address: [address] [place] [address] Performed By: #### 2 4344-4 ####[facility]ORATORYCLIA [id number] [address] [place] Hematocrit (Bld) [Volume fraction] 30.1 % Low 39.0-51.0 [facility] Comment on above: Order Comment: Speci men Type: VENOUS BLOOD SPECIMENOrdering Facility: [facility] Address: [address] [address] Performed By: #### 2 4344-4 ####[facility]ORATORYCLIA [id number] [address] OF [facility] Hemoglobin (Bld) [Mass/Vol] 9.7 g/dL Low 13.0-17.0 [facility] Comment on above: Order Comment: Speci men Type: VENOUS BLOOD SPECIMENOrdering Facility: [facility] Address: [address] [place] [address] Performed By: #### 2 4344-4 ####[facility]ORATORYCLIA [id number] [address] Methemoglobin (Bld) [Mass fraction] % Normal 0.0-1.5 [facility] Comment on above: Order Comment: Speci men Type: VENOUS BLOOD SPECIMENOrdering Facility: [facility] Address: [address] [place] [address] Performed By: #### 2 4344-4 ####[facility]ORATORYCLIA [id number] [address] O2 THERAPY NC = Nasal Cannula Normal [facility] Comment on above: Order Comment: Speci men Type: VENOUS BLOOD SPECIMENOrdering Facility: [facility] Address: [address] [place] [address] Performed By: #### 2 4344-4 ####[facility]ORATORYCLIA [id number] [address] Oxygen (BldV) [Partial pressure] 64 mm[Hg] High 35-45 [facility] Comment on above: Order Comment: Speci men Type: VENOUS BLOOD SPECIMENOrdering Facility: [facility] Address: [address] [place] [address] Performed By: #### 2 4344-4 ####[facility]ORATORYCLIA [id number] [address] [place] Oxygen saturation in Blood 90 % High 60-85 [facility] Comment on above: Order Comment: Speci men Type: VENOUS BLOOD SPECIMENOrdering Facility: [facility] Address: [address] [place] [address] Performed By: #### 2 4344-4 ####[facility]ORATORYCLIA [id number] [place] [address] [place] Oxyhemoglobin (BldV) [Mass fraction] 87 % High 60-85 [facility] Comment on above: Order Comment: Speci men Type: VENOUS BLOOD SPECIMENOrdering Facility: [facility] Address: [address] [place] [address] Performed By: #### 2 4344-4 ####[facility]ORATORYCLIA [id number] [address] [place] pH (BldV) 7.38 [pH] Normal 7.32-7.42 [facility] Comment on above: Order Comment: Speci men Type: VENOUS BLOOD SPECIMENOrdering Facility: [facility] Address: [address] [place] [address] Performed By: #### 2 4344-4 ####[facility]ORATORYCLIA [id number] [address] [place] Potassium [Moles/Vol] 3.8 mmol/L Normal 3.5-5.0 [facility] Comment on above: Order Comment: Speci men Type: VENOUS BLOOD SPECIMENOrdering Facility: [facility] Address: [address] [place] [address] Performed By: #### 2 4344-4 ####[facility]ORATORYCLIA [id number] [place] [address] [place] Sodium [Moles/Vol] 145 mmol/L High 136-144 [facility] Comment on above: Order Comment: Speci men Type: VENOUS BLOOD SPECIMENOrdering Facility: [facility] Address: [address] [place] [address] Performed By: #### 2 4344-4 ####[facility]ORATORYCLIA [id number] [place] [address] [place] Base excess Calc (BldV) [Moles/Vol] 8 mmol/L High 0-2 [facility] Comment on above: Order Comment: Speci men Type: VENOUS BLOOD SPECIMENOrdering Facility: [facility] Address: [address] [place] [address] Performed By: #### 2 4344-4 ####[facility]ORATORYCLIA [id number] [address] [place] Body temperature 100.22 [degF] Normal [facility] Comment on above: Order Comment: Speci men Type: VENOUS BLOOD SPECIMENOrdering Facility: [facility] Address: [address] [place] [address] Performed By: #### 2 4344-4 ####[facility]ORATORYCLIA [id number] [address] [place] CALCIUM IONIZED, PH CORRECTED 1.25 mmol/L Normal 1.08-1.30 [facility] Comment on above: Order Comment: Speci men Type: VENOUS BLOOD SPECIMENOrdering Facility: [facility] Address: [address] [place] [address] Performed By: #### 2 4344-4 ####[facility]ORATORYCLIA [id number] [address] [place] Calcium.ionized (BldV) [Mass/Vol] 1.24 mmol/L Normal 1.08-1.30 [facility] Comment on above: Order Comment: Speci men Type: VENOUS BLOOD SPECIMENOrdering Facility: [facility] Address: [address] [place] [address] Performed By: #### 2 4344-4 ####[facility]ORATORYCLIA [id number] [address] [place] Carboxyhemoglobin (BldV) [Mass fraction] 2.5 % High 0.0-2.0 [facility] Comment on above: Order Comment: Speci men Type: VENOUS BLOOD SPECIMENOrdering Facility: [facility] Address: [address] [address] Result Comment: Carb oxyhemoglobin Reference Range for Smokers: 2.0-8.0% Performed By: #### 2 4344-4 ####[facility]ORYCLIA [id number] [address] [place] CO2 (BldV) [Partial pressure] 53 mm[Hg] Normal 42-55 [facility] Comment on above: Order Comment: Speci men Type: VENOUS BLOOD SPECIMENOrdering Facility: [facility] Address: [address] [place] [address] Performed By: #### 2 4344-4 ####[facility]ORATORYCLIA [id number] [address] [place] CO2 [Moles/Vol] 31 mmol/L High 25-29 [facility] Comment on above: Order Comment: Speci men Type: VENOUS BLOOD SPECIMENOrdering Facility: [facility] Address: [address] [place] [address] Performed By: #### 2 4344-4 ####[facility]ORATORYCLIA [id number] [address] [place] CO2 adjusted to patient's actual temperature (BldV) [Partial pressure] 56 mmHg High 42-55 [facility] Comment on above: Order Comment: Speci men Type: VENOUS BLOOD SPECIMENOrdering Facility: [facility] Address: [address] [place] [address] Performed By: #### 2 4344-4 ####[facility]ORYCLIA [id number] [address] [place] Glucose [Mass/Vol] 131 mg/dL High 60-105 [facility] Comment on above: Order Comment: Speci men Type: VENOUS BLOOD SPECIMENOrdering Facility: [facility] Address: [address] [place] [address] Performed By: #### 2 4344-4 ####[facility] LABORATORYCLIA [id number] [address] [place] HCO3 (Bld) [Moles/Vol] 33 mmol/L High 24-28 [facility] Comment on above: Order Comment: Speci men Type: VENOUS BLOOD SPECIMENOrdering Facility: [facility] Address: [address] [place] [address] Performed By: #### 2 4344-4 ####[facility]ORATORYCLIA [id number] [address] [place] Hematocrit (Bld) [Volume fraction] 30.8 % Low 39.0-51.0 [facility] Comment on above: Order Comment: Speci men Type: VENOUS BLOOD SPECIMENOrdering Facility: [facility] Address: [address] [place] [address] Performed By: #### 2 4344-4 ####[facility]ORATORYCLIA [id number] [address] [place] Hemoglobin (Bld) [Mass/Vol] 10.0 g/dL Low 13.0-17.0 [facility] Comment on above: Order Comment: Speci men Type: VENOUS BLOOD SPECIMENOrdering Facility: [facility] Address: [address] [place] [address] Performed By: #### 2 4344-4 ####[facility]ORATORYCLIA [id number] [address] [place] Methemoglobin (Bld) [Mass fraction] % Normal 0.0-1.5 [facility] Comment on above: Order Comment: Speci men Type: VENOUS BLOOD SPECIMENOrdering Facility: [facility] Address: [address] [place] [address] Performed By: #### 2 4344-4 ####[facility]ORATORYCLIA [id number] [address] O2 THERAPY NC = Nasal Cannula Normal [facility] Comment on above: Order Comment: Speci men Type: VENOUS BLOOD SPECIMENOrdering Facility: [facility] Address: [address] [place] [address] Performed By: #### 2 4344-4 ####[facility]ORYCLIA [id number] [address] [place] Oxygen (BldV) [Partial pressure] 58 mm[Hg] High 35-45 [facility] Comment on above: Order Comment: Speci men Type: VENOUS BLOOD SPECIMENOrdering Facility: [facility] Address: [address] [place] [address] Performed By: #### 2 4344-4 ####[facility]ORYCLIA [id number] [address] [place] Oxygen adjusted to patient's actual temperature (BldV) [Partial pressure] 61 mmHg High 35-45 [facility] Comment on above: Order Comment: Speci men Type: VENOUS BLOOD SPECIMENOrdering Facility: [facility] Address: [address] [place] [address] Performed By: #### 2 4344-4 ####[facility]ORATORYCLIA [id number] [address] [place] Oxygen saturation in Blood 88 % High 60-85 [facility] Comment on above: Order Comment: Speci men Type: VENOUS BLOOD SPECIMENOrdering Facility: [facility] Address: [address] [place] [address] Performed By: #### 2 4344-4 ####[facility]ORATORYCLIA [id number] [address] [place] Oxyhemoglobin (BldV) [Mass fraction] 85 % Normal 60-85 [facility] Comment on above: Order Comment: Speci men Type: VENOUS BLOOD SPECIMENOrdering Facility: [facility] Address: [address] [place] [address] Performed By: #### 2 4344-4 ####[facility]ATORYCLIA [id number] [address] [place] pH (BldV) 7.41 [pH] Normal 7.32-7.42 [facility] Comment on above: Order Comment: Speci men Type: VENOUS BLOOD SPECIMENOrdering Facility: [facility] Address: [address] [place] [address] Performed By: #### 2 4344-4 ####[facility]ATORYCLIA [id number] [address] pH adjusted to patient's actual temperature (BldV) 7.40 Normal 7.32-7.42 [facility] Comment on above: Order Comment: Speci men Type: VENOUS BLOOD SPECIMENOrdering Facility: [facility] Address: [address] [place] [address] Performed By: #### 2 4344-4 ####[facility]ORATORYCLIA [id number] [place] [address] [place] Potassium [Moles/Vol] 4.0 mmol/L Normal 3.5-5.0 [facility] Comment on above: Order Comment: Speci men Type: VENOUS BLOOD SPECIMENOrdering Facility: [facility] Address: [address] [place] [address] Performed By: #### 2 4344-4 ####[facility]ORATORYCLIA [id number] [place] [address] [place] Sodium [Moles/Vol] 146 mmol/L High 136-144 [facility] Comment on above: Order Comment: Speci men Type: VENOUS BLOOD SPECIMENOrdering Facility: [facility] Address: [address] [place] [address] Performed By: #### 2 4344-4 ####[facility]ORATORYCLIA [id number] [place] [address] [place] Magnesium SerPl-mCncon 07-21 Magnesium [Mass/Vol] 2.5 mg/dL High 1.7-2.3 [facility] Comment on above: Order Comment: Speci men Type: BLOOD SPECIMENOrdering Facility: [facility] Address: [address] [place] [address] Performed By: #### 1 9123-9, 2777-1, 76140-4 ####[facility]ORATORYCLIA [id number] [address] [place] NURSING PROGon 07-21-2021 NURSING PROG Normal [facility] Phosphate SerPl-mCncon 07-21 Phosphate [Mass/Vol] 3.7 mg/dL Normal 2.7-4.8 [facility] Comment on above: Order Comment: Speci men Type: BLOOD SPECIMENOrdering Facility: [facility] Address: [facility] [address] [place] [address] Performed By: #### 1 9123-9, 2777-1, 89968-4 ####[facility]ORATORYCLIA [id number] [address] OF [facility] THERAPY NTon 07-21-2021 THERAPY NT Normal [facility] XR CHEST 1V FRONTALon 2021 XR CHEST 1V FRONTAL Normal [facility] aPTT PPPon 07-21-2021 aPTT Coag (PPP) [Time] 53.0 s High 23.0-32.4 [facility] Comment on above: Order Comment: Speci men Type: BLOOD SPECIMENOrdering Facility: [facility] Address: [facility] [place] [place] [address] Performed By: #### 1 4979-9 ####[facility]ORATORYCLIA [id number] [address] [place] ALLIED HEALTHon 07-20-2021 ALLIED HEALTH Normal [facility] Basic metabolic 2000 panelon 07-20-2021 Anion gap [Moles/Vol] 8 mmol/L Low 9-18 [facility] Comment on above: Order Comment: Speci men Type: BLOOD SPECIMENOrdering Facility: [facility] Address: [facility] [address] [address] Performed By: #### 2 4321-2, 75081-9, 2777-1 ####[facility]ATORYCLIA [id number] [address] [place] Calcium [Mass/Vol] 9.7 mg/dL Normal 8.5-10.2 [facility] Comment on above: Order Comment: Speci men Type: BLOOD SPECIMENOrdering Facility: [facility] Address: [address] [place] [address] Performed By: #### 2 4321-2, , 2776-05 ####[facility]ORATORYCLIA [id number] [place] [address] [place] Chloride [Moles/Vol] 104 mmol/L Normal 97-105 [facility] Comment on above: Order Comment: Speci men Type: BLOOD SPECIMENOrdering Facility: [facility] Address: [address] [place] [address] Performed By: #### 2 4321-2, , 2776-05 ####[facility]ORATORYCLIA [id number] [address] [place] CO2 [Moles/Vol] 34 mmol/L High 22-30 [facility] Comment on above: Order Comment: Speci men Type: BLOOD SPECIMENOrdering Facility: [facility] Address: [address] [place] [address] Performed By: #### 2 4321-2, , 2776-05 ####[facility]ORATORYCLIA [id number] [address] [place] Creatinine [Mass/Vol] 0.76 mg/dL Normal 0.73-1.22 [facility] Comment on above: Order Comment: Speci men Type: BLOOD SPECIMENOrdering Facility: [facility] Address: [address] [place] [address] Performed By: #### 2 4321-2, , 2776-05 ####[facility]ORATORYCLIA [id number] [address] [place] ESTIMATED GLOMERULAR FILTRATION RATE 97 mL/min/1.73m??? Normal >=60 [facility] Comment on above: Order Comment: Speci men Type: BLOOD SPECIMENOrdering Facility: [facility] Address: [address] [place] [address] Result Comment: Luzmaria mated Glomerular Filtration Rate (eGFR) is calculated using the 2020 CKD-EPI creatinine equation. This equation utilizes serum creatinine, sex, and age as parameters. The creatinine assay has traceable calibration to isotope dilution-mass spectrometry. Refer to KDIGO guidelines for clinical interpretation. In patients with unstable renal function, e.g. those with acute kidney injury, the eGFR may not accurately reflect actual GFR. Performed By: #### 2 4321-2, , 2776-05 ####[facility]ORATORYCLIA [id number] [place] [address] [place] Glucose [Mass/Vol] 123 mg/dL High 74-99 [facility] Comment on above: Order Comment: Shira feldman Type: BLOOD SPECIMENOrdering Facility: [facility] Address: [address] [place], [place] [address] Result Comment: The [place] [employer] (ADA) provides guidance for cutoff values for fasting glucose and random glucose. The ADA defines fasting as no caloric intake for at least 8 hours. Fasting plasma glucose results between 100 to 125 mg/dL indicate increased risk for diabetes (prediabetes).Fasting plasma glucose results greater than or equal to 126 mg/dL meet the criteria for diagnosis of diabetes. In the absence of unequivocal hyperglycemia, results should be confirmed by repeat testing. In a patient with classic symptoms of hyperglycemia or hyperglycemic crisis, random plasma glucose results greater than or equal to 200 mg/dL meet the criteria for diagnosis of diabetes.Reference: Standards of Medical Care in Diabetes 2016, [place] [employer]. Diabetes Care. 2016.39(Suppl 1). Performed By: #### 2 4321-2, , 2776-05 ####[facility] LABORATORYIA [id number] [place] [address] [place] Potassium [Moles/Vol] 4.4 mmol/L Normal 3.7-5.1 [facility] Comment on above: Order Comment: Shira feldman Type: BLOOD SPECIMENOrdering Facility: [facility] Address: [address] [place], [place] [address] Performed By: #### 2 4321-2, , 2776-05 ####[facility]ORATORYCLIA [id number] [place] [address] [place] Sodium [Moles/Vol] 146 mmol/L High 136-144 [facility] Comment on above: Order Comment: Speci men Type: BLOOD SPECIMENOrdering Facility: [facility] Address: [address] [place] [address] Performed By: #### 2 4321-2, 54757-1, 2777-1 ####[facility]ORATORYCLIA [id number] [address] [place] Urea nitrogen [Mass/Vol] 38 mg/dL High 9-24 [facility] Comment on above: Order Comment: Speci men Type: BLOOD SPECIMENOrdering Facility: [facility] Address: [address] [place] [address] Performed By: #### 2 4321-2, 85169-1, 2777-1 ####[facility]ORATORYCLIA [id number] [address] [place] OF [facility] CASE MANAGEMon 07-20-2021 CASE MANAGEM Normal [facility] CBC W Auto Differential pane l (Bld)on 07-20-2021 Basophils (Bld) [#/Vol] 0.05 10*3/uL Normal <0.11 [facility] Comment on above: Order Comment: Speci men Type: BLOOD SPECIMENOrdering Facility: [facility] Address: [address] [place] [address] Performed By: #### 5 7021-8 ####[facility]ORATORYCLIA [id number] [address] [place] Basophils/100 WBC (Bld) 0.5 % Normal [facility] Comment on above: Order Comment: Speci men Type: BLOOD SPECIMENOrdering Facility: [facility] Address: [address] [place] [address] Performed By: #### 5 7021-8 ####[facility]ORATORYCLIA [id number] [address] Differential cell count method Nom (Bld) Auto Normal [facility] Comment on above: Order Comment: Speci men Type: BLOOD SPECIMENOrdering Facility: [facility] Address: [address] [place] [address] Performed By: #### 5 7021-8 ####[facility]ORATORYCLIA [id number] [address] [place] Eosinophils (Bld) [#/Vol] 0.43 10*3/uL Normal <0.46 [facility] Comment on above: Order Comment: Speci men Type: BLOOD SPECIMENOrdering Facility: [facility] Address: [address] [place] [address] Performed By: #### 5 7021-8 ####[facility]ORATORYCLIA [id number] [address] [place] Eosinophils/100 WBC (Bld) 4.1 % Normal [facility] Comment on above: Order Comment: Speci men Type: BLOOD SPECIMENOrdering Facility: [facility] Address: [address] [place] [address] Performed By: #### 5 7021-8 ####[facility]ORATORYCLIA [id number] [address] [place] Erythrocyte distribution width (RBC) [Ratio] 16.7 % High 11.5-15.0 [facility] Comment on above: Order Comment: Speci men Type: BLOOD SPECIMENOrdering Facility: [facility] Address: [address] [place] [address] Performed By: #### 5 7021-8 ####[facility]ORATORYCLIA [id number] [address] [place] Hematocrit (Bld) [Volume fraction] 33.0 % Low 39.0-51.0 [facility] Comment on above: Order Comment: Speci men Type: BLOOD SPECIMENOrdering Facility: [facility] Address: [address] [place] [address] Performed By: #### 5 7021-8 ####[facility]ORATORYCLIA [id number] [address] OF [facility] Hemoglobin (Bld) [Mass/Vol] 9.7 g/dL Low 13.0-17.0 [facility] Comment on above: Order Comment: Speci men Type: BLOOD SPECIMENOrdering Facility: [facility] Address: [address] [place] [address] Performed By: #### 5 7021-8 ####[facility]ORATORYCLIA [id number] [address] [place] IMMATURE GRAN % 0.4 % Normal [facility] Comment on above: Order Comment: Speci men Type: BLOOD SPECIMENOrdering Facility: [facility] Address: [address] [place] [address] Performed By: #### 5 7021-8 ####[facility] LABORATORYCLIA [id number] [address] IMMATURE GRAN ABS 0.04 k/uL Normal <0.10 [facility] Comment on above: Order Comment: Speci men Type: BLOOD SPECIMENOrdering Facility: [facility] Address: [address] [place] [address] Performed By: #### 5 7021-8 ####[facility] [facility] LABORATORYCLIA [id number] [address] [place] Lymphocytes (Bld) [#/Vol] 1.99 10*3/uL Normal 1.00-4.00 [facility] Comment on above: Order Comment: Speci men Type: BLOOD SPECIMENOrdering Facility: [facility] Address: [address] [place] [address] Performed By: #### 5 7021-8 ####[facility] LABORATORYCLIA [id number] [address] Lymphocytes/100 WBC (Bld) 18.8 % Normal [facility] Comment on above: Order Comment: Speci men Type: BLOOD SPECIMENOrdering Facility: [facility] Address: [address] [place] [address] Performed By: #### 5 7021-8 ####[facility] LABORATORYCLIA [id number] [address] STATES [facility] MCH (RBC) [Entitic mass] 27.8 pg Normal 26.0-34.0 [facility] Comment on above: Order Comment: Speci men Type: BLOOD SPECIMENOrdering Facility: [facility] Address: [address] [place] [address] Performed By: #### 5 7021-8 ####[facility] LABORATORYCLIA [id number] [address] STATES OF [facility] MCHC (RBC) [Mass/Vol] 29.4 g/dL Low 30.5-36.0 [facility] Comment on above: Order Comment: Speci men Type: BLOOD SPECIMENOrdering Facility: [facility] Address: [address] [place] [address] Performed By: #### 5 7021-8 ####[facility] LABORATORYCLIA [id number] [address] MCV (RBC) [Entitic vol] 94.6 fL Normal 80.0-100.0 [facility] Comment on above: Order Comment: Speci men Type: BLOOD SPECIMENOrdering Facility: [facility] Address: [address] [place] [address] Performed By: #### 5 7021-8 ####[facility] LABORATORYCLIA [id number] [address] [place] Monocytes (Bld) [#/Vol] 0.82 10*3/uL Normal <0.87 [facility] Comment on above: Order Comment: Speci men Type: BLOOD SPECIMENOrdering Facility: [facility] Address: [address] [place] [address] Performed By: #### 5 7021-8 ####[facility] LABORATORYCLIA [id number] [address] Monocytes/100 WBC (Bld) 7.8 % Normal [facility] Comment on above: Order Comment: Speci men Type: BLOOD SPECIMENOrdering Facility: [facility] Address: [address] [address] Performed By: #### 5 7021-8 ####[facility] GR[facility] LABORATORYCLIA [id number] [address] [place] Neutrophils (Bld) [#/Vol] 7.23 10*3/uL Normal 1.45-7.50 [facility] Comment on above: Order Comment: Speci men Type: BLOOD SPECIMENOrdering Facility: [facility] Address: [address] [place] [address] Performed By: #### 5 7021-8 ####[facility] LABORATORYCLIA [id number] [address] [place] Neutrophils/100 WBC (Bld) 68.4 % Normal [facility] Comment on above: Order Comment: Speci men Type: BLOOD SPECIMENOrdering Facility: [facility] Address: [address] [place] [address] Performed By: #### 5 7021-8 ####[facility] LABORATORYCLIA [id number] [address] [place] Nucleated RBC (Bld) [#/Vol] 10*3/uL Normal <0.01 [facility] Comment on above: Order Comment: Speci men Type: BLOOD SPECIMENOrdering Facility: [facility] Address: [address] [place] [address] Performed By: #### 5 7021-8 ####[facility] LABORATORYCLIA [id number] [address] [place] Nucleated RBC/100 WBC (Bld) [Ratio] 0.0 /100 WBC Normal [facility] Comment on above: Order Comment: Speci men Type: BLOOD SPECIMENOrdering Facility: [facility] Address: [address] [place] [address] Performed By: #### 5 7021-8 ####[facility]OVE LABORATORYCLIA [id number] [place] [address] [place] Platelet mean volume (Bld) [Entitic vol] 10.5 fL Normal 9.0-12.7 [facility] Comment on above: Order Comment: Speci men Type: BLOOD SPECIMENOrdering Facility: [facility] Address: [address] [place] [address] Performed By: #### 5 7021-8 ####[facility] LABORATORYCLIA [id number] [address] [place] Platelets (Bld) [#/Vol] 400 10*3/uL Normal 150-400 [facility] Comment on above: Order Comment: Speci men Type: BLOOD SPECIMENOrdering Facility: [facility] Address: [address] [place] [address] Performed By: #### 5 7021-8 ####[facility] LABORATORYCLIA [id number] [address] [place] RBC (Bld) [#/Vol] 3.49 10*6/uL Low 4.20-6.00 [facility] Comment on above: Order Comment: Speci men Type: BLOOD SPECIMENOrdering Facility: [facility] Address: [address] [place] [address] Performed By: #### 5 7021-8 ####[facility] LABORATORYCLIA [id number] [address] [place] WBC (Bld) [#/Vol] 10.56 10*3/uL Normal 3.70-11.00 [facility] Comment on above: Order Comment: Speci men Type: BLOOD SPECIMENOrdering Facility: [facility] Address: [address] [place] [address] Performed By: #### 5 7021-8 ####[facility] LABORATORYCLIA [id number] [address] [place] CONSULT PROGon 07-20-2021 CONSULT PROG Normal [facility] CT BRAIN WO IVCONon 07-21-19 CT BRAIN WO IVCON Normal [facility] Magnesium SerPl-mCncon 07-20 Magnesium [Mass/Vol] 2.4 mg/dL High 1.7-2.3 [facility] Comment on above: Order Comment: Speci men Type: BLOOD SPECIMENOrdering Facility: [facility] Address: [address] [place] [address] Performed By: #### 2 4321-2, 67414-2, 2777-1 ####[facility] LABORATORYCLIA [id number] [place] [address] [place] NUTRITIONon 07-20-2021 NUTRITION Normal [facility] Phosphate SerPl-mCncon 07-20 Phosphate [Mass/Vol] 4.1 mg/dL Normal 2.7-4.8 [facility] Comment on above: Order Comment: Speci men Type: BLOOD SPECIMENOrdering Facility: [facility] Address: [address] [place] [address] Performed By: #### 2 4321-2, 98836-3, 2777-1 ####[facility] LABORATORYCLIA [id number] [place] [address] [place] aPTT PPPon 07-20-2021 aPTT Coag (PPP) [Time] 53.6 s High 23.0-32.4 [facility] Comment on above: Order Comment: Speci men Type: BLOOD SPECIMENOrdering Facility: [facility] Address: [address] [place] [address] Performed By: #### 1 4979-9 ####[facility] LABORATORYCLIA [id number] [address] [place] Bacteria CSF Culton 07-20-19 22 Bacteria identified Cx Nom (CSF) CULTURE, CSF: No growth 14 days GRAM STAIN: No organisms seen No Polymorphonuclear Leukocytes Rare Mononuclear cells Gram stain performed on cytospun specimen. Normal [facility] Comment on above: Performed By: #### 6 06-4 ####[facility] LABORATORYCLIA [id number] [address] [place] CONSULT PROGon 07-19-2021 CONSULT PROG Normal [facility] CSF MANUAL DIFFon 07-19-2021 DIF TTL, CSF 100 cells counted Normal [facility] Comment on above: Order Comment: Speci men Type: CEREBROSPINAL FLUIDOrdering Facility: [facility] Address: [address] [place] [address] Performed By: #### L [id number], 58582-2, [id number] ####[facility] LABORATORYCLIA [id number] [address] [place] EOSIN%, CSF 1 % Normal [facility] Comment on above: Order Comment: Speci men Type: CEREBROSPINAL FLUIDOrdering Facility: [facility] Address: [address] [place] [address] Performed By: #### L [id number], 79556-8, [id number] ####[place] [facility] LABORATORYCLIA [id number] [place] [address] [place] LYMPH%, CSF 67 % Normal 50-90 [facility] Comment on above: Order Comment: Speci men Type: CEREBROSPINAL FLUIDOrdering Facility: [facility] Address: [address] [place] [address] Performed By: #### L [id number], 32520-1, [id number] ####[facility] [place] [facility] LABORATORYCLIA [id number] [place] [address] [place] MACRO%, CSF 1 % High <1 [facility] Comment on above: Order Comment: Speci men Type: CEREBROSPINAL FLUIDOrdering Facility: [facility] Address: [address] [place] [address] Performed By: #### L [id number], 29227-0, [id number] ####[place] [facility] LABORATORYCLIA [id number] [place] [address] [place] MONO%, CSF 18 % Normal 10-50 [facility] Comment on above: Order Comment: Speci men Type: CEREBROSPINAL FLUIDOrdering Facility: [facility] Address: [address] [place] [address] Performed By: #### L [id number], 11001-4, [id number] ####[place] [facility] LABORATORYCLIA [id number] [place] [address] [place] NEUT%, CSF 11 % High 0-3 [facility] Comment on above: Order Comment: Speci men Type: CEREBROSPINAL FLUIDOrdering Facility: [facility] Address: [address] [place] [address] Performed By: #### L [id number], 45636-4, [id number] ####[facility] LABORATORYCLIA [id number] [address] [place] OTHER CL%, CSF 2 % Normal [facility] Comment on above: Order Comment: Speci men Type: CEREBROSPINAL FLUIDOrdering Facility: [facility] Address: [address] [place] [address] Result Comment: Path review to follow. Performed By: #### L [id number], 60256-5, [id number] ####[facility] LABORATORYCLIA [id number] [address] CSF PATHOLOGIST INTERP (LAB REFLEX ORDER-NO BILL)on 07-19-2021 CSF STAFF REVIEW Normal [facility] Comment on above: Order Comment: Speci men Type: CEREBROSPINAL FLUIDOrdering Facility: [facility] Address: [address] [place] [address] Performed By: #### L [id number], 81050-8, [id number] ####[facility] LABORATORYCLIA [id number] [address] Pathologist name Reviewed by Wing Cummings MD Normal [facility] Comment on above: Order Comment: Speci men Type: CEREBROSPINAL FLUIDOrdering Facility: [facility] Address: [address] [place] [address] Performed By: #### L [id number], 48632-8, [id number] ####[facility] LABORATORYCLIA [id number] [address] [place] Cell count panel (CSF)on Clarity (CSF) Clear Normal Clear [facility] Comment on above: Order Comment: Speci men Type: CEREBROSPINAL FLUIDOrdering Facility: [facility] Address: [address] [place] [address] Performed By: #### L [id number], 41532-8, [id number] ####[place] [facility] LABORATORYCLIA [id number] [address] Clarity (Unsp spec) Not Indicated Normal Clear [facility] Comment on above: Order Comment: Speci men Type: CEREBROSPINAL FLUIDOrdering Facility: [facility] Address: [address] [place] [address] Performed By: #### L [id number], 25957-7, [id number] ####[place] [facility] LABORATORYCLIA [id number] [address] Color (CSF) Colorless Normal Colorless [facility] Comment on above: Order Comment: Speci men Type: CEREBROSPINAL FLUIDOrdering Facility: [facility] Address: [address] [place] [address] Performed By: #### L [id number], 12938-1, [id number] ####[facility] [place] [facility] LABORATORYCLIA [id number] [address] Color (Spun CSF) Not Indicated Normal Colorless [facility] Comment on above: Order Comment: Speci men Type: CEREBROSPINAL FLUIDOrdering Facility: [facility] Address: [address] [place] [address] Performed By: #### L [id number], 21935-5, TXU2056 ####[place] [facility] LABORATORYCLIA [id number] [address] CSF TUBE [employer] Normal [facility] Comment on above: Order Comment: Speci men Type: CEREBROSPINAL FLUIDOrdering Facility: [facility] Address: [address] [place] [address] Performed By: #### L [id number], 13629-0, [id number] ####[facility] [place] [facility] LABORATORYCLIA [id number] [address] RBC Manual cnt (CSF) [#/Vol] 0 cells/uL Normal 0-5 [facility] Comment on above: Order Comment: Speci men Type: CEREBROSPINAL FLUIDOrdering Facility: [facility] Address: [address] [place] [address] Performed By: #### L RB0890, 29644-2, [id number] ####[facility] LABORATORYCLIA [id number] [address] WBC Manual cnt (CSF) [#/Vol] 2 cells/uL Normal 0-5 [facility] Comment on above: Order Comment: Speci men Type: CEREBROSPINAL FLUIDOrdering Facility: [facility] Address: [address] [place] [address] Performed By: #### L [id number], 50295-5, [id number] ####[facility] LABORATORYCLIA [id number] [address] Glucose CSF-[facility] 2 Glucose (CSF) [Mass/Vol] 69 mg/dL Normal 40-70 [facility] Comment on above: Order Comment: Speci men Type: CEREBROSPINAL FLUIDOrdering Facility: [facility] Address: [address] [place] [address] Result Comment: Lumb ar CSF glucose values of healthy patients are approximately 60% of the plasma values and must always be compared with a concurrently measured plasma value for adequate clinical interpretation.References: 1. Glucose HK (GLUC3) [package insert V 12.0 [place]]. [employer], [place], [place]. September 2015. 2. Michelle Moore, Loki, H. (2015). Chapter 7: Glucose and Lactate. F. Irina rose al.(eds.), Cerebrospinal Fluid in Clinical Neurology. [place]: [employer]. Performed By: #### 2 342-4, 2880-3 ####[facility] LABORATORYCLIA [id number] [address] [place] NURSING PROGon 07-19-2021 NURSING PROG Normal [facility] NURSING PROG Normal [facility] Prot CSF-mCncon 07-19-2021 Protein (CSF) [Mass/Vol] 51 mg/dL High 15-45 [facility] Comment on above: Order Comment: Speci men Type: CEREBROSPINAL FLUIDOrdering Facility: [facility] Address: [address] [place] [address] Performed By: #### 2 342-4, 2880-3 ####[facility] LABORATORYCLIA [id number] [address] OF [facility] THERAPY NTon 07-19-2021 THERAPY NT Normal [facility] Urinalysis complete panel (U )on 07-19-2021 Bilirubin Ql (U) Negative Normal Negative [facility] Comment on above: Order Comment: Speci men Type: URINE SPECIMENOrdering Facility: [facility] Address: [address] [place] [address] Performed By: #### 2 4356-8 ####[facility] LABORATORYCLIA [id number] [address] Clarity (Unsp spec) Clear Normal Clear [facility] Comment on above: Order Comment: Speci men Type: URINE SPECIMENOrdering Facility: [facility] Address: [address] [place] [address] Performed By: #### 2 4356-8 ####[facility] LABORATORYCLIA [id number] [address] Color (U) Colorless Normal yellow [facility] Comment on above: Order Comment: Speci men Type: URINE SPECIMENOrdering Facility: [facility] Address: [address] [place] [address] Performed By: #### 2 4356-8 ####[facility] LABORATORYCLIA [id number] [address] Glucose Test strip (U) [Mass/Vol] Negative Normal Negative [facility] Comment on above: Order Comment: Speci men Type: URINE SPECIMENOrdering Facility: [facility] Address: [address] [place] [address] Performed By: #### 2 4356-8 ####[facility] [facility] LABORATORYCLIA [id number] [address] Hemoglobin Ql (U) Trace Abnormal Negative [facility] Comment on above: Order Comment: Speci men Type: URINE SPECIMENOrdering Facility: [facility] Address: [address] [place] [address] Performed By: #### 2 4356-8 ####[facility] LABORATORYCLIA [id number] [address] [place] Hyaline casts (Urine sed) [#/Area] 1-3 /LPF Abnormal 0 /LPF [facility] Comment on above: Order Comment: Speci men Type: URINE SPECIMENOrdering Facility: [facility] Address: [address] [place] [address] Performed By: #### 2 4356-8 ####[facility] LABORATORYCLIA [id number] [address] STATES [facility] Ketones Ql (U) Negative Normal Negative [facility] Comment on above: Order Comment: Speci men Type: URINE SPECIMENOrdering Facility: [facility] Address: [address] [place] [address] Performed By: #### 2 4356-8 ####[facility] LABORATORYCLIA [id number] [address] Leukocyte esterase Test strip Ql (U) Negative Normal Negative [facility] Comment on above: Order Comment: Speci men Type: URINE SPECIMENOrdering Facility: [facility] Address: [address] [place] [address] Performed By: #### 2 4356-8 ####[facility] LABORATORYCLIA [id number] [address] [place] Nitrite Ql (U) Negative Normal Negative [facility] Comment on above: Order Comment: Speci men Type: URINE SPECIMENOrdering Facility: [facility] Address: [address] [place] [address] Performed By: #### 2 4356-8 ####[facility] [facility] LABORATORYCLIA [id number] [address] pH (U) 7.0 [pH] Normal 5.0-8.0 [facility] Comment on above: Order Comment: Speci men Type: URINE SPECIMENOrdering Facility: [facility] Address: [address] [place] [address] Performed By: #### 2 4356-8 ####[facility] LABORATORYCLIA [id number] [address] Protein (U) [Mass/Vol] Negative Normal Negative [facility] Comment on above: Order Comment: Speci men Type: URINE SPECIMENOrdering Facility: [facility] Address: [address] [place] [address] Performed By: #### 2 4356-8 ####[facility] LABORATORYCLIA [id number] [address] STATES [facility] RBC LM.HPF (Urine sed) [#/Area] 6-10 /HPF Abnormal 0-3 /HPF [facility] Comment on above: Order Comment: Speci men Type: URINE SPECIMENOrdering Facility: [facility] Address: [address] [place] [address] Performed By: #### 2 4356-8 ####[facility] LABORATORYCLIA [id number] [address] Specific gravity (U) [Rel density] 1.008 Normal 1.005-1.030 [facility] Comment on above: Order Comment: Speci men Type: URINE SPECIMENOrdering Facility: [facility] Address: [address] [place] [address] Performed By: #### 2 4356-8 ####[facility] LABORATORYCLIA [id number] [address] Urobilinogen Ql (U) Normal Normal Negative [facility] Comment on above: Order Comment: Speci men Type: URINE SPECIMENOrdering Facility: [facility] Address: [address] [place] [address] Performed By: #### 2 4356-8 ####[facility] LABORATORYCLIA [id number] [address] STATES [facility] WBC LM.HPF (Urine sed) [#/Area] 0-5 /HPF Normal 0-5 /HPF [facility] Comment on above: Order Comment: Speci men Type: URINE SPECIMENOrdering Facility: [facility] Address: [address] [place] [address] Performed By: #### 2 4356-8 ####[facility] LABORATORYCLIA [id number] [address] Vancomycin random [Mass/Vol] on 07-19-2021 Vancomycin [Mass/Vol] 13.9 ug/mL Normal 10.0-20.0 [facility] Comment on above: Order Comment: Speci men Type: BLOOD SPECIMENOrdering Facility: [facility] Address: [address] [place] [address] Result Comment: Refe rence ranges and high/low indicator flags are provided as general guidelines only. The treating physician must determine appropriate target levels/dosing based on the specific clinical situation. Performed By: #### 4 091-5 ####[facility] [id number] [address] aPTT PPPon 07-19-2021 aPTT Coag (PPP) [Time] 53.9 s High 23.0-32.4 [facility] Comment on above: Order Comment: Speci men Type: BLOOD SPECIMENOrdering Facility: [facility] Address: [address] Performed By: #### 1 4979-9 ####[facility] LABORATORYCLIA [id number] [address] [place] Basic metabolic 2000 panelon 07-18-2021 Anion gap [Moles/Vol] 6 mmol/L Low 9-18 [facility] Comment on above: Order Comment: Speci men Type: BLOOD SPECIMENOrdering Facility: [facility] Address: [address] [place] [address] Performed By: #### 2 4321-2, , 2776-05 ####[facility] LABORATORYCLIA [id number] [place] [address] [place] Calcium [Mass/Vol] 9.4 mg/dL Normal 8.5-10.2 [facility] Comment on above: Order Comment: Speci men Type: BLOOD SPECIMENOrdering Facility: [facility] Address: [address] [place] [address] Performed By: #### 2 4321-2, , 2776-05 ####[facility] LABORATORYCLIA [id number] [place] [address] [place] Chloride [Moles/Vol] 103 mmol/L Normal 97-105 [facility] Comment on above: Order Comment: Speci men Type: BLOOD SPECIMENOrdering Facility: [facility] Address: [address] [place] [address] Performed By: #### 2 4321-2, , 2776-05 ####[facility] LABORATORYCLIA [id number] [place] [address] [place] CO2 [Moles/Vol] 34 mmol/L High 22-30 [facility] Comment on above: Order Comment: Speci men Type: BLOOD SPECIMENOrdering Facility: [facility] Address: [address] [place] [address] Performed By: #### 2 4321-2, , 2776-05 ####[facility] LABORATORYCLIA [id number] [place] [address] [place] Creatinine [Mass/Vol] 0.75 mg/dL Normal 0.73-1.22 [facility] Comment on above: Order Comment: Speci men Type: BLOOD SPECIMENOrdering Facility: [facility] Address: [address] [place] [address] Performed By: #### 2 4321-2, , 2776-05 ####[facility] [facility] LABORATORYCLIA [id number] [place] [address] [place] ESTIMATED GLOMERULAR FILTRATION RATE 98 mL/min/1.73m??? Normal >=60 [facility] Comment on above: Order Comment: Shira francia Type: BLOOD SPECIMENOrdering Facility: [facility] Address: [address] [place] [address] Result Comment: Luzmaria mated Glomerular Filtration Rate (eGFR) is calculated using the 2020 CKD-EPI creatinine equation. This equation utilizes serum creatinine, sex, and age as parameters. The creatinine assay has traceable calibration to isotope dilution-mass spectrometry. Refer to KDIGO guidelines for clinical interpretation. In patients with unstable renal function, e.g. those with acute kidney injury, the eGFR may not accurately reflect actual GFR. Performed By: #### 2 4321-2, 62226-3, 2776- ####[facility] LABORATORYCLIA [id number] [place] [address] [place] Glucose [Mass/Vol] 125 mg/dL High 74-99 [facility] Comment on above: Order Comment: Shira feldman Type: BLOOD SPECIMENOrdering Facility: [facility] Address: [address] [place] [address] Result Comment: The [place] [employer] (ADA) provides guidance for cutoff values for fasting glucose and random glucose. The ADA defines fasting as no caloric intake for at least 8 hours. Fasting plasma glucose results between 100 to 125 mg/dL indicate increased risk for diabetes (prediabetes).Fasting plasma glucose results greater than or equal to 126 mg/dL meet the criteria for diagnosis of diabetes. In the absence of unequivocal hyperglycemia, results should be confirmed by repeat testing. In a patient with classic symptoms of hyperglycemia or hyperglycemic crisis, random plasma glucose results greater than or equal to 200 mg/dL meet the criteria for diagnosis of diabetes.Reference: Standards of Medical Care in Diabetes 2016, [place] [employer]. Diabetes Care. 2016.39(Suppl 1). Performed By: #### 2 4321-2, 40720-9, 2776- ####[facility] LABORATORYCLIA [id number] [place] [id number] [place] Potassium [Moles/Vol] 4.4 mmol/L Normal 3.7-5.1 [facility] Comment on above: Order Comment: Speci men Type: BLOOD SPECIMENOrdering Facility: [facility] Address: [address] [place] [address] Performed By: #### 2 4321-2, , 2776-05 ####[facility] LABORATORYCLIA [id number] [place] [address] [place] Sodium [Moles/Vol] 143 mmol/L Normal 136-144 [facility] Comment on above: Order Comment: Speci men Type: BLOOD SPECIMENOrdering Facility: [facility] Address: [address] [place] [address] Performed By: #### 2 4321-2, , 2776-05 ####[facility]ORATORYCLIA [id number] [address] [place] Urea nitrogen [Mass/Vol] 33 mg/dL High 9-24 [facility] Comment on above: Order Comment: Speci men Type: BLOOD SPECIMENOrdering Facility: [facility] Address: [address] [place] [address] Performed By: #### 2 4321-2, , 2776-05 ####[facility]ORATORYCLIA [id number] [address] [place] CASE MANAGEMon 07-18-2021 CASE MANAGEM Normal [facility] CBC W Auto Differential pane l (Bld)on 07-18-2021 Basophils (Bld) [#/Vol] 0.05 10*3/uL Normal <0.11 [facility] Comment on above: Order Comment: Speci men Type: BLOOD SPECIMENOrdering Facility: [facility] Address: [address] [place] [address] Performed By: #### 5 7021-8 ####[facility]ORATORYCLIA [id number] [address] [place] Basophils/100 WBC (Bld) 0.5 % Normal [facility] Comment on above: Order Comment: Speci men Type: BLOOD SPECIMENOrdering Facility: [facility] Address: [address] [place] [address] Performed By: #### 5 7021-8 ####[facility] LABORATORYCLIA [id number] [address] Differential cell count method Nom (Bld) Auto Normal [facility] Comment on above: Order Comment: Speci men Type: BLOOD SPECIMENOrdering Facility: [facility] Address: [address] [place] [address] Performed By: #### 5 7021-8 ####[facility]ORATORYCLIA [id number] [address] Eosinophils (Bld) [#/Vol] 0.44 10*3/uL Normal <0.46 [facility] Comment on above: Order Comment: Speci men Type: BLOOD SPECIMENOrdering Facility: [facility] Address: [address] [place] [address] Performed By: #### 5 7021-8 ####[facility]ORATORYCLIA [id number] [address] Eosinophils/100 WBC (Bld) 4.3 % Normal [facility] Comment on above: Order Comment: Speci men Type: BLOOD SPECIMENOrdering Facility: [facility] Address: [address] [place] [address] Performed By: #### 5 7021-8 ####[facility]ORATORYCLIA [id number] [address] Erythrocyte distribution width (RBC) [Ratio] 16.6 % High 11.5-15.0 [facility] Comment on above: Order Comment: Speci men Type: BLOOD SPECIMENOrdering Facility: [facility] Address: [address] [place] [address] Performed By: #### 5 7021-8 ####[facility]ORATORYCLIA [id number] [address] Hematocrit (Bld) [Volume fraction] 32.2 % Low 39.0-51.0 [facility] Comment on above: Order Comment: Speci men Type: BLOOD SPECIMENOrdering Facility: [facility] Address: [address] [place] [address] Performed By: #### 5 7021-8 ####[facility] LABORATORYCLIA [id number] [address] [place] Hemoglobin (Bld) [Mass/Vol] 9.5 g/dL Low 13.0-17.0 [facility] Comment on above: Order Comment: Speci men Type: BLOOD SPECIMENOrdering Facility: [facility] Address: [address] [place] [address] Performed By: #### 5 7021-8 ####[facility]ORATORYCLIA [id number] [address] [place] IMMATURE GRAN % 0.4 % Normal [facility] Comment on above: Order Comment: Speci men Type: BLOOD SPECIMENOrdering Facility: [facility] Address: [address] [place] [address] Performed By: #### 5 7021-8 ####[facility]ORATORYCLIA [id number] [address] IMMATURE GRAN ABS 0.04 k/uL Normal <0.10 [facility] Comment on above: Order Comment: Speci men Type: BLOOD SPECIMENOrdering Facility: [facility] Address: [address] [place] [address] Performed By: #### 5 7021-8 ####[facility]ORATORYCLIA [id number] [address] [place] Lymphocytes (Bld) [#/Vol] 1.71 10*3/uL Normal 1.00-4.00 [facility] Comment on above: Order Comment: Speci men Type: BLOOD SPECIMENOrdering Facility: [facility] Address: [address] [place] [address] Performed By: #### 5 7021-8 ####[facility]ORATORYCLIA [id number] [address] Lymphocytes/100 WBC (Bld) 16.9 % Normal [facility] Comment on above: Order Comment: Speci men Type: BLOOD SPECIMENOrdering Facility: [facility] Address: [address] [place] [address] Performed By: #### 5 7021-8 ####[facility] LABORATORYCLIA [id number] [address] MCH (RBC) [Entitic mass] 27.9 pg Normal 26.0-34.0 [facility] Comment on above: Order Comment: Speci men Type: BLOOD SPECIMENOrdering Facility: [facility] Address: [address] [place] [address] Performed By: #### 5 7021-8 ####[facility]ORATORYCLIA [id number] [address] [place] [facility] MCHC (RBC) [Mass/Vol] 29.5 g/dL Low 30.5-36.0 [facility] Comment on above: Order Comment: Speci men Type: BLOOD SPECIMENOrdering Facility: [facility] Address: [address] [place] [address] Performed By: #### 5 7021-8 ####[facility]ORATORYCLIA [id number] [address] MCV (RBC) [Entitic vol] 94.7 fL Normal 80.0-100.0 [facility] Comment on above: Order Comment: Speci men Type: BLOOD SPECIMENOrdering Facility: [facility] Address: [address] [place] [address] Performed By: #### 5 7021-8 ####[facility]ORATORYCLIA [id number] [address] Monocytes (Bld) [#/Vol] 0.69 10*3/uL Normal <0.87 [facility] Comment on above: Order Comment: Speci men Type: BLOOD SPECIMENOrdering Facility: [facility] Address: [address] [place] [place] [address] Performed By: #### 5 7021-8 ####[facility]ORATORYCLIA [id number] [address] [place] Monocytes/100 WBC (Bld) 6.8 % Normal [facility] Comment on above: Order Comment: Speci men Type: BLOOD SPECIMENOrdering Facility: [facility] Address: [address] [place] [address] Performed By: #### 5 7021-8 ####[facility]ORATORYCLIA [id number] [place] [address] [place] Neutrophils (Bld) [#/Vol] 7.19 10*3/uL Normal 1.45-7.50 [facility] Comment on above: Order Comment: Speci men Type: BLOOD SPECIMENOrdering Facility: [facility] Address: [address] [place] [address] Performed By: #### 5 7021-8 ####[facility]ORATORYCLIA [id number] [address] [place] [facility] Neutrophils/100 WBC (Bld) 71.1 % Normal [facility] Comment on above: Order Comment: Speci men Type: BLOOD SPECIMENOrdering Facility: [facility] Address: [address] [place] [address] Performed By: #### 5 7021-8 ####[facility]ATORYCLIA [id number] [address] [place] Nucleated RBC (Bld) [#/Vol] 10*3/uL Normal <0.01 [facility] Comment on above: Order Comment: Speci men Type: BLOOD SPECIMENOrdering Facility: [facility] Address: [address] [place] [address] Performed By: #### 5 7021-8 ####[facility]ATORYCLIA [id number] [address] [place] Nucleated RBC/100 WBC (Bld) [Ratio] 0.0 /100 WBC Normal [facility] Comment on above: Order Comment: Speci men Type: BLOOD SPECIMENOrdering Facility: [facility] Address: [address] [place] [address] Performed By: #### 5 7021-8 ####[facility]ORATORYCLIA [id number] [address] [place] Platelet mean volume (Bld) [Entitic vol] 10.3 fL Normal 9.0-12.7 [facility] Comment on above: Order Comment: Speci men Type: BLOOD SPECIMENOrdering Facility: [facility] Address: [address] [place], [place] [address] Performed By: #### 5 7021-8 ####[facility]ORATORYCLIA [id number] [address] [place] Platelets (Bld) [#/Vol] 403 10*3/uL High 150-400 [facility] Comment on above: Order Comment: Speci men Type: BLOOD SPECIMENOrdering Facility: [facility] Address: [address] [place] [address] Performed By: #### 5 7021-8 ####[facility]ORATORYCLIA [id number] [place] [address] [place] RBC (Bld) [#/Vol] 3.40 10*6/uL Low 4.20-6.00 [facility] Comment on above: Order Comment: Speci men Type: BLOOD SPECIMENOrdering Facility: [facility] Address: [address] [place], [place] [address] Performed By: #### 5 7021-8 ####[facility]ORATORYCLIA [id number] [place] [address] [place] WBC (Bld) [#/Vol] 10.12 10*3/uL Normal 3.70-11.00 [facility] Comment on above: Order Comment: Speci men Type: BLOOD SPECIMENOrdering Facility: [facility] Address: [address] [place] [address] Performed By: #### 5 7021-8 ####[facility]ORATORYCLIA [id number] [address] Magnesium SerPl-mCncon 07-18 Magnesium [Mass/Vol] 2.4 mg/dL High 1.7-2.3 [facility] Comment on above: Order Comment: Speci men Type: BLOOD SPECIMENOrdering Facility: [facility] Address: [address] [place] [address] Performed By: #### 2 4321-2, 22527-4, 2777-1 ####[facility]ORATORYCLIA [id number] [address] NURSING PROGon 07-18-2021 NURSING PROG Normal [facility] NURSING PROG Normal [facility] Phosphate SerPl-mCncon 07-18 Phosphate [Mass/Vol] 3.9 mg/dL Normal 2.7-4.8 [facility] Comment on above: Order Comment: Speci men Type: BLOOD SPECIMENOrdering Facility: [facility] Address: [address] [place] [address] Performed By: #### 2 4321-2, 45788-8, 2777-1 ####[facility]ORATORYCLIA [id number] [address] THERAPY NTon 07-18-2021 THERAPY NT Normal [facility] aPTT PPPon 07-18-2021 aPTT Coag (PPP) [Time] 52.3 s High 23.0-32.4 [facility] Comment on above: Order Comment: Speci men Type: BLOOD SPECIMENOrdering Facility: [facility] Address: [address] [place] [address] Performed By: #### 1 4979-9 ####[facility]ORATORYCLIA [id number] [address] CBC W Auto Differential pane l (Bld)on 07-17-2021 Basophils (Bld) [#/Vol] 0.05 10*3/uL Normal <0.11 [facility] Comment on above: Order Comment: Speci men Type: BLOOD SPECIMENOrdering Facility: [facility] Address: [address] [place] [address] Performed By: #### 5 7021-8 ####[facility]ORATORYCLIA [id number] [address] [place] Basophils/100 WBC (Bld) 0.5 % Normal [facility] Comment on above: Order Comment: Speci men Type: BLOOD SPECIMENOrdering Facility: [facility] Address: [address] [place] [address] Performed By: #### 5 7021-8 ####[facility]ATORYCLIA [id number] [address] Differential cell count method Nom (Bld) Auto Normal [facility] Comment on above: Order Comment: Speci men Type: BLOOD SPECIMENOrdering Facility: [facility] Address: [address] [place] [address] Performed By: #### 5 7021-8 ####[facility]ORATORYCLIA [id number] [address] [place] Eosinophils (Bld) [#/Vol] 0.32 10*3/uL Normal <0.46 [facility] Comment on above: Order Comment: Speci men Type: BLOOD SPECIMENOrdering Facility: [facility] Address: [address] [place] [address] Performed By: #### 5 7021-8 ####[facility]ATORYCLIA [id number] [address] [place] Eosinophils/100 WBC (Bld) 3.4 % Normal [facility] Comment on above: Order Comment: Speci men Type: BLOOD SPECIMENOrdering Facility: [facility] Address: [address] [place] [address] Performed By: #### 5 7021-8 ####[facility]ATORYCLIA [id number] [address] [place] Erythrocyte distribution width (RBC) [Ratio] 16.6 % High 11.5-15.0 [facility] Comment on above: Order Comment: Speci men Type: BLOOD SPECIMENOrdering Facility: [facility] Address: [address] [place] [address] Performed By: #### 5 7021-8 ####[facility]ORATORYCLIA [id number] [address] [place] [facility] Hematocrit (Bld) [Volume fraction] 30.7 % Low 39.0-51.0 [facility] Comment on above: Order Comment: Speci men Type: BLOOD SPECIMENOrdering Facility: [facility] Address: [address] [place] [address] Performed By: #### 5 7021-8 ####[facility]ORATORYCLIA [id number] [address] [place] [facility] Hemoglobin (Bld) [Mass/Vol] 9.0 g/dL Low 13.0-17.0 [facility] Comment on above: Order Comment: Speci men Type: BLOOD SPECIMENOrdering Facility: [facility] Address: [address] [place] [address] Performed By: #### 5 7021-8 ####[facility]ORATORYCLIA [id number] [address] IMMATURE GRAN % 0.6 % Normal [facility] Comment on above: Order Comment: Speci men Type: BLOOD SPECIMENOrdering Facility: [facility] Address: [address] [place] [address] Performed By: #### 5 7021-8 ####[facility]ORATORYCLIA [id number] [address] IMMATURE GRAN ABS 0.06 k/uL Normal <0.10 [facility] Comment on above: Order Comment: Speci men Type: BLOOD SPECIMENOrdering Facility: [facility] Address: [address] [place] [address] Performed By: #### 5 7021-8 ####[facility]ORATORYCLIA [id number] [address] [place] Lymphocytes (Bld) [#/Vol] 1.61 10*3/uL Normal 1.00-4.00 [facility] Comment on above: Order Comment: Speci men Type: BLOOD SPECIMENOrdering Facility: [facility] Address: [address] [place] [address] Performed By: #### 5 7021-8 ####[facility]ORATORYCLIA [id number] [address] [place] [facility] Lymphocytes/100 WBC (Bld) 17.3 % Normal [facility] Comment on above: Order Comment: Speci men Type: BLOOD SPECIMENOrdering Facility: [facility] Address: [address] [place] [address] Performed By: #### 5 7021-8 ####[facility]ORATORYCLIA [id number] [address] [place] MCH (RBC) [Entitic mass] 26.9 pg Normal 26.0-34.0 [facility] Comment on above: Order Comment: Speci men Type: BLOOD SPECIMENOrdering Facility: [facility] Address: [address] [place] [address] Performed By: #### 5 7021-8 ####[facility]ORATORYCLIA [id number] [address] [place] MCHC (RBC) [Mass/Vol] 29.3 g/dL Low 30.5-36.0 [facility] Comment on above: Order Comment: Speci men Type: BLOOD SPECIMENOrdering Facility: [facility] Address: [address] [place] [address] Performed By: #### 5 7021-8 ####[facility]ORATORYCLIA [id number] [address] MCV (RBC) [Entitic vol] 91.9 fL Normal 80.0-100.0 [facility] Comment on above: Order Comment: Speci men Type: BLOOD SPECIMENOrdering Facility: [facility] Address: [address] [place], [place] [id number] Performed By: #### 5 7021-8 ####[facility]ORATORYCLIA [id number] [place] [address] [place] Monocytes (Bld) [#/Vol] 0.61 10*3/uL Normal <0.87 [facility] Comment on above: Order Comment: Speci men Type: BLOOD SPECIMENOrdering Facility: [facility] Address: [address] [place] [address] Performed By: #### 5 7021-8 ####[facility]ORYCLIA [id number] [address] [place] Monocytes/100 WBC (Bld) 6.6 % Normal [facility] Comment on above: Order Comment: Speci men Type: BLOOD SPECIMENOrdering Facility: [facility] Address: [address] [place] [address] Performed By: #### 5 7021-8 ####[facility]ORATORYCLIA [id number] [address] [place] Neutrophils (Bld) [#/Vol] 6.64 10*3/uL Normal 1.45-7.50 [facility] Comment on above: Order Comment: Speci men Type: BLOOD SPECIMENOrdering Facility: [facility] Address: [address] [place] [address] Performed By: #### 5 7021-8 ####[facility]ORYCLIA [id number] [address] [place] Neutrophils/100 WBC (Bld) 71.6 % Normal [facility] Comment on above: Order Comment: Speci men Type: BLOOD SPECIMENOrdering Facility: [facility] Address: [address] [place] [address] Performed By: #### 5 7021-8 ####[facility]ATORYCLIA [id number] [place] [address] [place] Nucleated RBC (Bld) [#/Vol] 10*3/uL Normal <0.01 [facility] Comment on above: Order Comment: Speci men Type: BLOOD SPECIMENOrdering Facility: [facility] Address: [address] [place] [address] Performed By: #### 5 7021-8 ####[facility]ORATORYCLIA [id number] [address] [place] Nucleated RBC/100 WBC (Bld) [Ratio] 0.0 /100 WBC Normal [facility] Comment on above: Order Comment: Speci men Type: BLOOD SPECIMENOrdering Facility: [facility] Address: [address] [place] [address] Performed By: #### 5 7021-8 ####[facility]ATORYCLIA [id number] [place] [address] [place] Platelet mean volume (Bld) [Entitic vol] 10.1 fL Normal 9.0-12.7 [facility] Comment on above: Order Comment: Speci men Type: BLOOD SPECIMENOrdering Facility: [facility] Address: [address] [place] [address] Performed By: #### 5 7021-8 ####[facility]ORATORYCLIA [id number] [place] [address] [place] Platelets (Bld) [#/Vol] 387 10*3/uL Normal 150-400 [facility] Comment on above: Order Comment: Speci men Type: BLOOD SPECIMENOrdering Facility: [facility] Address: [address] [place], [place] [address] Performed By: #### 5 7021-8 ####[facility]ORATORYCLIA [id number] [place] [address] [place] RBC (Bld) [#/Vol] 3.34 10*6/uL Low 4.20-6.00 [facility] Comment on above: Order Comment: Speci men Type: BLOOD SPECIMENOrdering Facility: [facility] Address: [address] [place] [address] Performed By: #### 5 7021-8 ####[facility]ORATORYCLIA [id number] [address] [place] WBC (Bld) [#/Vol] 9.29 10*3/uL Normal 3.70-11.00 [facility] Comment on above: Order Comment: Speci men Type: BLOOD SPECIMENOrdering Facility: [facility] Address: [address] [place] [address] Performed By: #### 5 7021-8 ####[facility]ORATORYCLIA [id number] [address] CONSULT PROGon 07-17-2021 CONSULT PROG Normal [facility] Magnesium SerPl-mCncon 07-17 Magnesium [Mass/Vol] 2.3 mg/dL Normal 1.7-2.3 [facility] Comment on above: Order Comment: Speci men Type: BLOOD SPECIMENOrdering Facility: [facility] Address: [address] [place] [address] Performed By: #### 2 777-1, 15923-9 ####[facility]ORATORYCLIA [id number] [address] NURSING PROGon 07-17-2021 NURSING PROG Normal [facility] NURSING PROG Normal [facility] NURSING PROG Normal [facility] Phosphate SerPl-mCncon 07-17 Phosphate [Mass/Vol] 3.6 mg/dL Normal 2.7-4.8 [facility] Comment on above: Order Comment: Speci men Type: BLOOD SPECIMENOrdering Facility: [facility] Address: [address] [place] [address] Performed By: #### 2 777-1, 33327-3 ####[facility]ORATORYCLIA [id number] [address] aPTT PPPon 07-17-2021 aPTT Coag (PPP) [Time] 57.2 s High 23.0-32.4 [facility] Comment on above: Order Comment: Speci men Type: BLOOD SPECIMENOrdering Facility: [facility] Address: [address] [place] [address] Performed By: #### 1 4979-9 ####[facility]ORATORYCLIA [id number] [place] [address] [place] Basic metabolic 2000 panelon 07-16-2021 Anion gap [Moles/Vol] 5 mmol/L Low 9-18 [facility] Comment on above: Order Comment: Speci men Type: BLOOD SPECIMENOrdering Facility: [facility] Address: [address] [place] [address] Performed By: #### 2 777-1, 52536-3, ####[facility]ORATORYCLIA [id number] [place] [address] [place] Calcium [Mass/Vol] 9.1 mg/dL Normal 8.5-10.2 [facility] Comment on above: Order Comment: Speci men Type: BLOOD SPECIMENOrdering Facility: [facility] Address: [address] [place] [address] Performed By: #### 2 777-1, 94304-6, ####[facility] LABORATORYCLIA [id number] [place] [address] [place] Chloride [Moles/Vol] 101 mmol/L Normal 97-105 [facility] Comment on above: Order Comment: Speci men Type: BLOOD SPECIMENOrdering Facility: [facility] Address: [address] [place] [address] Performed By: #### 2 777-1, 59328-3, ####[facility] LABORATORYCLIA [id number] [place] [address] [place] CO2 [Moles/Vol] 35 mmol/L High 22-30 [facility] Comment on above: Order Comment: Speci men Type: BLOOD SPECIMENOrdering Facility: [facility] Address: [address] [place] [address] Performed By: #### 2 777-1, 82892-6, ####[facility]ORATORYCLIA [id number] [place] [address] [place] Creatinine [Mass/Vol] 0.73 mg/dL Normal 0.73-1.22 [facility] Comment on above: Order Comment: Shira feldman Type: BLOOD SPECIMENOrdering Facility: [facility] Address: [address] [place] [address] Performed By: #### 2 777-1, 44362-8, ####[facility] LABORATORYCLIA [id number] [place] [address] [facility] ESTIMATED GLOMERULAR FILTRATION RATE 98 mL/min/1.73m??? Normal >=60 [facility] Comment on above: Order Comment: Shira feldman Type: BLOOD SPECIMENOrdering Facility: [facility] Address: [address] [place] [address] Result Comment: Luzmaria mated Glomerular Filtration Rate (eGFR) is calculated using the 2020 CKD-EPI creatinine equation. This equation utilizes serum creatinine, sex, and age as parameters. The creatinine assay has traceable calibration to isotope dilution-mass spectrometry. Refer to KDIGO guidelines for clinical interpretation. In patients with unstable renal function, e.g. those with acute kidney injury, the eGFR may not accurately reflect actual GFR. Performed By: #### 2 777-1, 80067-2, ####[facility]PITALIA [id number] [place] [address] [place] [facility] Glucose [Mass/Vol] 133 mg/dL High 74-99 [facility] Comment on above: Order Comment: Shira feldman Type: BLOOD SPECIMENOrdering Facility: [facility] Address: [address] [place] [address] Result Comment: The [place] Diabetes Association (ADA) provides guidance for cutoff values for fasting glucose and random glucose. The ADA defines fasting as no caloric intake for at least 8 hours. Fasting plasma glucose results between 100 to 125 mg/dL indicate increased risk for diabetes (prediabetes).Fasting plasma glucose results greater than or equal to 126 mg/dL meet the criteria for diagnosis of diabetes. In the absence of unequivocal hyperglycemia, results should be confirmed by repeat testing. In a patient with classic symptoms of hyperglycemia or hyperglycemic crisis, random plasma glucose results greater than or equal to 200 mg/dL meet the criteria for diagnosis of diabetes.Reference: Standards of Medical Care in Diabetes 2016, [place] [employer] Association. Diabetes Care. 2016.39(Suppl 1). Performed By: #### 2 777-1, 14636-9, ####[facility] LABORATORYCLIA [id number] [address] [place] Potassium [Moles/Vol] 4.2 mmol/L Normal 3.7-5.1 [facility] Comment on above: Order Comment: Speci francia Type: BLOOD SPECIMENOrdering Facility: [facility] Address: [address] [place] [address] Performed By: #### 2 777-1, , ####[facility] LABORATORYCLIA [id number] [address] [place] [facility] Sodium [Moles/Vol] 141 mmol/L Normal 136-144 [facility] Comment on above: Order Comment: Shira feldman Type: BLOOD SPECIMENOrdering Facility: [facility] Address: [address] [place] [address] Performed By: #### 2 777-1, , ####[facility] LABORATORYCLIA [id number] [address] [place] [facility] Urea nitrogen [Mass/Vol] 21 mg/dL Normal 9-24 [facility] Comment on above: Order Comment: Johni francia Type: BLOOD SPECIMENOrdering Facility: [facility] Address: [address] [place] [address] Performed By: #### 2 777-1, , ####[facility] LABORATORYCLIA [id number] [address] [place] CBC W Auto Differential pane l (Bld)on 07-16-2021 Basophils (Bld) [#/Vol] 0.06 10*3/uL Normal <0.11 [facility] Comment on above: Order Comment: Speci men Type: BLOOD SPECIMENOrdering Facility: [facility] Address: [address] [place] [address] Performed By: #### 5 7021-8 ####[facility]ORATORYCLIA [id number] [address] [place] Basophils/100 WBC (Bld) 0.7 % Normal [facility] Comment on above: Order Comment: Speci men Type: BLOOD SPECIMENOrdering Facility: [facility] Address: [address] [place] [address] Performed By: #### 5 7021-8 ####[facility] LABORATORYCLIA [id number] [address] Differential cell count method Nom (Bld) Auto Normal [facility] Comment on above: Order Comment: Speci men Type: BLOOD SPECIMENOrdering Facility: [facility] Address: [address] [place] [address] Performed By: #### 5 7021-8 ####[facility] LABORATORYCLIA [id number] [address] [place] Eosinophils (Bld) [#/Vol] 0.35 10*3/uL Normal <0.46 [facility] Comment on above: Order Comment: Speci men Type: BLOOD SPECIMENOrdering Facility: [facility] Address: [address] [place] [address] Performed By: #### 5 7021-8 ####[facility] LABORATORYCLIA [id number] [address] STATES [facility] Eosinophils/100 WBC (Bld) 3.9 % Normal [facility] Comment on above: Order Comment: Speci men Type: BLOOD SPECIMENOrdering Facility: [facility] Address: [address] [place] [address] Performed By: #### 5 7021-8 ####[facility]ORATORYCLIA [id number] [address] [place] Erythrocyte distribution width (RBC) [Ratio] 16.5 % High 11.5-15.0 [facility] Comment on above: Order Comment: Speci men Type: BLOOD SPECIMENOrdering Facility: [facility] Address: [address] [place] [address] Performed By: #### 5 7021-8 ####[facility]ORATORYCLIA [id number] [address] Hematocrit (Bld) [Volume fraction] 30.9 % Low 39.0-51.0 [facility] Comment on above: Order Comment: Speci men Type: BLOOD SPECIMENOrdering Facility: [facility] Address: [address] [place] [address] Performed By: #### 5 7021-8 ####[facility]ORATORYCLIA [id number] [address] Hemoglobin (Bld) [Mass/Vol] 9.1 g/dL Low 13.0-17.0 [facility] Comment on above: Order Comment: Speci men Type: BLOOD SPECIMENOrdering Facility: [facility] Address: [address] [place] [address] Performed By: #### 5 7021-8 ####[facility] LABORATORYCLIA [id number] [address] IMMATURE GRAN % 0.4 % Normal [facility] Comment on above: Order Comment: Speci men Type: BLOOD SPECIMENOrdering Facility: [facility] Address: [address] [place] [address] Performed By: #### 5 7021-8 ####[facility] LABORATORYCLIA [id number] [address] IMMATURE GRAN ABS 0.04 k/uL Normal <0.10 [facility] Comment on above: Order Comment: Speci men Type: BLOOD SPECIMENOrdering Facility: [facility] Address: [address] [place] [address] Performed By: #### 5 7021-8 ####[facility]ORATORYCLIA [id number] [address] [place] [facility] Lymphocytes (Bld) [#/Vol] 1.35 10*3/uL Normal 1.00-4.00 [facility] Comment on above: Order Comment: Speci men Type: BLOOD SPECIMENOrdering Facility: [facility] Address: [address] [place] [address] Performed By: #### 5 7021-8 ####[facility] LABORATORYCLIA [id number] [address] Lymphocytes/100 WBC (Bld) 15.0 % Normal [facility] Comment on above: Order Comment: Speci men Type: BLOOD SPECIMENOrdering Facility: [facility] Address: [address] [place] [address] Performed By: #### 5 7021-8 ####[facility]ORATORYCLIA [id number] [address] [place] MCH (RBC) [Entitic mass] 27.1 pg Normal 26.0-34.0 [facility] Comment on above: Order Comment: Speci men Type: BLOOD SPECIMENOrdering Facility: [facility] Address: [address] [place] [address] Performed By: #### 5 7021-8 ####[facility]ORATORYCLIA [id number] [address] [place] MCHC (RBC) [Mass/Vol] 29.4 g/dL Low 30.5-36.0 [facility] Comment on above: Order Comment: Speci men Type: BLOOD SPECIMENOrdering Facility: [facility] Address: [address] [place] [address] Performed By: #### 5 7021-8 ####[facility] LABORATORYCLIA [id number] [address] MCV (RBC) [Entitic vol] 92.0 fL Normal 80.0-100.0 [facility] Comment on above: Order Comment: Speci men Type: BLOOD SPECIMENOrdering Facility: [facility] Address: [address] [place] [address] Performed By: #### 5 7021-8 ####[facility]ORATORYCLIA [id number] [place] [address] [place] Monocytes (Bld) [#/Vol] 0.53 10*3/uL Normal <0.87 [facility] Comment on above: Order Comment: Speci men Type: BLOOD SPECIMENOrdering Facility: [facility] Address: [address] [place] [address] Performed By: #### 5 7021-8 ####[facility]ATORYCLIA [id number] [address] [place] Monocytes/100 WBC (Bld) 5.9 % Normal [facility] Comment on above: Order Comment: Speci men Type: BLOOD SPECIMENOrdering Facility: [facility] Address: [address] [place] [address] Performed By: #### 5 7021-8 ####[facility]ORATORYCLIA [id number] [place] [address] [place] Neutrophils (Bld) [#/Vol] 6.67 10*3/uL Normal 1.45-7.50 [facility] Comment on above: Order Comment: Speci men Type: BLOOD SPECIMENOrdering Facility: [facility] Address: [address] [place] [address] Performed By: #### 5 7021-8 ####[facility]ORYCLIA [id number] [address] [place] Neutrophils/100 WBC (Bld) 74.1 % Normal [facility] Comment on above: Order Comment: Speci men Type: BLOOD SPECIMENOrdering Facility: [facility] Address: [address] [place] [address] Performed By: #### 5 7021-8 ####[facility]ORATORYCLIA [id number] [place] [address] [place] Nucleated RBC (Bld) [#/Vol] 10*3/uL Normal <0.01 [facility] Comment on above: Order Comment: Speci men Type: BLOOD SPECIMENOrdering Facility: [facility] Address: [address] [place] [place] [address] Performed By: #### 5 7021-8 ####[facility]ORATORYCLIA [id number] [address] [place] Nucleated RBC/100 WBC (Bld) [Ratio] 0.0 /100 WBC Normal [facility] Comment on above: Order Comment: Speci men Type: BLOOD SPECIMENOrdering Facility: [facility] Address: [address] [place] [address] Performed By: #### 5 7021-8 ####[facility]ORATORYCLIA [id number] [place] [address] [place] Platelet mean volume (Bld) [Entitic vol] 9.9 fL Normal 9.0-12.7 [facility] Comment on above: Order Comment: Speci men Type: BLOOD SPECIMENOrdering Facility: [facility] Address: [address] [place] [address] Performed By: #### 5 7021-8 ####[facility]ORATORYCLIA [id number] [address] [place] Platelets (Bld) [#/Vol] 391 10*3/uL Normal 150-400 [facility] Comment on above: Order Comment: Speci men Type: BLOOD SPECIMENOrdering Facility: [facility] Address: [address] Performed By: #### 5 7021-8 ####[facility]ORATORYCLIA [id number] [address] [place] RBC (Bld) [#/Vol] 3.36 10*6/uL Low 4.20-6.00 [facility] Comment on above: Order Comment: Speci men Type: BLOOD SPECIMENOrdering Facility: [facility] Address: [address] [place] [address] Performed By: #### 5 7021-8 ####[facility]ORATORYCLIA [id number] [address] [place] WBC (Bld) [#/Vol] 9.00 10*3/uL Normal 3.70-11.00 [facility] Comment on above: Order Comment: Speci men Type: BLOOD SPECIMENOrdering Facility: [facility] Address: [address] [place] [address] Performed By: #### 5 7021-8 ####[facility]ORATORYCLIA [id number] [address] [place] CONSULT PROGon 07-16-2021 CONSULT PROG Normal [facility] CONSULT PROG Normal [facility] Magnesium SerPl-mCncon 07-16 Magnesium [Mass/Vol] 2.3 mg/dL Normal 1.7-2.3 [facility] Comment on above: Order Comment: Speci men Type: BLOOD SPECIMENOrdering Facility: [facility] Address: [address] [place] [address] Performed By: #### 2 777-1, 63448-3, ####[facility]ORATORYCLIA [id number] [address] [place] [facility] NURSING PROGon 07-16-2021 NURSING PROG Normal [facility] Phosphate SerPl-mCncon 07-16 Phosphate [Mass/Vol] 3.6 mg/dL Normal 2.7-4.8 [facility] Comment on above: Order Comment: Speci men Type: BLOOD SPECIMENOrdering Facility: [facility] Address: [address] [place] [address] Performed By: #### 2 777-1, 10338-4, 75335-9 ####[facility]ORATORYCLIA [id number] [address] [place] Vancomycin random [Mass/Vol] on 07-16-2021 Vancomycin [Mass/Vol] 16.9 ug/mL Normal 10.0-20.0 [facility] Comment on above: Order Comment: Speci men Type: BLOOD SPECIMENOrdering Facility: [facility] Address: [facility] [place] [address] Result Comment: Refe rence ranges and high/low indicator flags are provided as general guidelines only. The treating physician must determine appropriate target levels/dosing based on the specific clinical situation. Performed By: #### 4 091-5 ####[facility]ORATORYCLIA [id number] [address] [place] aPTT PPPon 07-16-2021 aPTT Coag (PPP) [Time] 57.2 s High 23.0-32.4 [facility] Comment on above: Order Comment: Speci men Type: BLOOD SPECIMENOrdering Facility: [facility] Address: [facility] [place] [address] Performed By: #### 1 4979-9 ####[facility]ORATORYCLIA [id number] [address] [place] ALLIED HEALTHon 07-15-2021 ALLIED HEALTH Normal [facility] Basic metabolic 2000 panelon 07-15-2021 Anion gap [Moles/Vol] 11 mmol/L Normal 9-18 [facility] Comment on above: Order Comment: Speci men Type: BLOOD SPECIMENOrdering Facility: [facility] Address: [facility] [place] [address] Performed By: #### 2 4321-2, 63888-7, 2777- ####[facility]ORATORYCLIA [id number] [address] [place] Calcium [Mass/Vol] 8.8 mg/dL Normal 8.5-10.2 [facility] Comment on above: Order Comment: Speci men Type: BLOOD SPECIMENOrdering Facility: [facility] Address: [facility] [place] [address] Performed By: #### 2 4321-2, 76235-9, 2777-1 ####[facility]ORATORYCLIA [id number] [address] [place] Chloride [Moles/Vol] 101 mmol/L Normal 97-105 [facility] Comment on above: Order Comment: Speci men Type: BLOOD SPECIMENOrdering Facility: [facility] Address: [address] [place] [address] Performed By: #### 2 4321-2, , 2776-05 ####[facility] LABORATORYCLIA [id number] [place] [id number] [place] [facility] CO2 [Moles/Vol] 31 mmol/L High 22-30 [facility] Comment on above: Order Comment: Speci men Type: BLOOD SPECIMENOrdering Facility: [facility] Address: [address] [place] [address] Performed By: #### 2 4321-2, , 2776-05 ####[facility] [id number] [address] Creatinine [Mass/Vol] 0.76 mg/dL Normal 0.73-1.22 [facility] Comment on above: Order Comment: Speci men Type: BLOOD SPECIMENOrdering Facility: [facility] Address: [address] [place] [address] Performed By: #### 2 432-2, , 2776-05 ####[facility]CL[facility] [id number] [address] ESTIMATED GLOMERULAR FILTRATION RATE 97 mL/min/1.73m??? Normal >=60 [facility] Comment on above: Order Comment: Speci men Type: BLOOD SPECIMENOrdering Facility: [facility] Address: [address] [place] [address] Result Comment: Luzmaria mated Glomerular Filtration Rate (eGFR) is calculated using the 2020 CKD-EPI creatinine equation. This equation utilizes serum creatinine, sex, and age as parameters. The creatinine assay has traceable calibration to isotope dilution-mass spectrometry. Refer to KDIGO guidelines for clinical interpretation. In patients with unstable renal function, e.g. those with acute kidney injury, the eGFR may not accurately reflect actual GFR. Performed By: #### 2 4321-2, , 2776-05 ####[facility]ORATORYCLIA [id number] [place] [address] [place] Glucose [Mass/Vol] 115 mg/dL High 74-99 [facility] Comment on above: Order Comment: Speci men Type: BLOOD SPECIMENOrdering Facility: [facility] Address: [address] [place], [place] [id number] Result Comment: The [place] Diabetes Association (ADA) provides guidance for cutoff values for fasting glucose and random glucose. The ADA defines fasting as no caloric intake for at least 8 hours. Fasting plasma glucose results between 100 to 125 mg/dL indicate increased risk for diabetes (prediabetes).Fasting plasma glucose results greater than or equal to 126 mg/dL meet the criteria for diagnosis of diabetes. In the absence of unequivocal hyperglycemia, results should be confirmed by repeat testing. In a patient with classic symptoms of hyperglycemia or hyperglycemic crisis, random plasma glucose results greater than or equal to 200 mg/dL meet the criteria for diagnosis of diabetes.Reference: Standards of Medical Care in Diabetes 2016, [place] [employer]. Diabetes Care. 2016.39(Suppl 1). Performed By: #### 2 4321-2, , 2776-05 ####[facility] LABORATORYCLIA [id number] [place] [address] [place] Potassium [Moles/Vol] 4.0 mmol/L Normal 3.7-5.1 [facility] Comment on above: Order Comment: Speci men Type: BLOOD SPECIMENOrdering Facility: [facility] Address: [address] [place], [place] [id number] Performed By: #### 2 4321-2, , 2776-05 ####[facility]ORATORYCLIA [id number] [place] [address] [place] Sodium [Moles/Vol] 143 mmol/L Normal 136-144 [facility] Comment on above: Order Comment: Speci men Type: BLOOD SPECIMENOrdering Facility: [facility] Address: [address] [place], [place] [id number] Performed By: #### 2 4321-2, , 2776-05 ####[facility]ORATORYCLIA [id number] [address] [place] Urea nitrogen [Mass/Vol] 17 mg/dL Normal 9-24 [facility] Comment on above: Order Comment: Speci men Type: BLOOD SPECIMENOrdering Facility: [facility] Address: [address] [place] [address] Performed By: #### 2 4321-2, 76863-9, 2777-1 ####[facility]ORATORYCLIA [id number] [address] [place] CASE MANAGEMon 07-15-2021 CASE MANAGEM Normal [facility] CBC panel Auto (Bld)on 07-15 Erythrocyte distribution width (RBC) [Ratio] 16.4 % High 11.5-15.0 [facility] Comment on above: Order Comment: Speci men Type: BLOOD SPECIMENOrdering Facility: [facility] Address: [address] [place] [address] Performed By: #### 5 8410-2 ####[facility]ORATORYCLIA [id number] [address] [place] Hematocrit (Bld) [Volume fraction] 30.3 % Low 39.0-51.0 [facility] Comment on above: Order Comment: Speci men Type: BLOOD SPECIMENOrdering Facility: [facility] Address: [address] [place] [address] Performed By: #### 5 8410-2 ####[facility]ORATORYCLIA [id number] [address] [place] Hemoglobin (Bld) [Mass/Vol] 9.2 g/dL Low 13.0-17.0 [facility] Comment on above: Order Comment: Speci men Type: BLOOD SPECIMENOrdering Facility: [facility] Address: [address] [place] [address] Performed By: #### 5 8410-2 ####[facility]ORATORYCLIA [id number] [address] [place] MCH (RBC) [Entitic mass] 28.3 pg Normal 26.0-34.0 [facility] Comment on above: Order Comment: Speci men Type: BLOOD SPECIMENOrdering Facility: [facility] Address: [address] [place] [address] Performed By: #### 5 8410-2 ####[facility]ORATORYCLIA [id number] [address] STATES [facility] MCHC (RBC) [Mass/Vol] 30.4 g/dL Low 30.5-36.0 [facility] Comment on above: Order Comment: Speci men Type: BLOOD SPECIMENOrdering Facility: [facility] Address: [address] [place] [address] Performed By: #### 5 8410-2 ####[facility]ORATORYCLIA [id number] [address] [place] MCV (RBC) [Entitic vol] 93.2 fL Normal 80.0-100.0 [facility] Comment on above: Order Comment: Speci men Type: BLOOD SPECIMENOrdering Facility: [facility] Address: [address] [place] [address] Performed By: #### 5 8410-2 ####[facility]ATORYCLIA [id number] [address] [place] Nucleated RBC (Bld) [#/Vol] 10*3/uL Normal <0.01 [facility] Comment on above: Order Comment: Speci men Type: BLOOD SPECIMENOrdering Facility: [facility] Address: [address] [place] [address] Performed By: #### 5 8410-2 ####[facility]ATORYCLIA [id number] [address] Platelet mean volume (Bld) [Entitic vol] 9.9 fL Normal 9.0-12.7 [facility] Comment on above: Order Comment: Speci men Type: BLOOD SPECIMENOrdering Facility: [facility] Address: [address] [place] [address] Performed By: #### 5 8410-2 ####[facility]ORATORYCLIA [id number] [address] Platelets (Bld) [#/Vol] 381 10*3/uL Normal 150-400 [facility] Comment on above: Order Comment: Speci men Type: BLOOD SPECIMENOrdering Facility: [facility] Address: [address] [place] [address] Performed By: #### 5 8410-2 ####[facility]ORATORYCLIA [id number] [address] [place] [facility] RBC (Bld) [#/Vol] 3.25 10*6/uL Low 4.20-6.00 [facility] Comment on above: Order Comment: Speci men Type: BLOOD SPECIMENOrdering Facility: [facility] Address: [address] [place] [address] Performed By: #### 5 8410-2 ####[facility] LABORATORYCLIA [id number] [address] [place] [facility] WBC (Bld) [#/Vol] 8.80 10*3/uL Normal 3.70-11.00 [facility] Comment on above: Order Comment: Speci men Type: BLOOD SPECIMENOrdering Facility: [facility] Address: [address] [place] [address] Performed By: #### 5 8410-2 ####[facility]ORATORYCLIA [id number] [address] [place] [facility] Magnesium SerPl-mCncon 07-15 Magnesium [Mass/Vol] 2.2 mg/dL Normal 1.7-2.3 [facility] Comment on above: Order Comment: Speci men Type: BLOOD SPECIMENOrdering Facility: [facility] Address: [address] [place] [address] Performed By: #### 2 4321-2, 45362-0, 2777-1 ####[facility] LABORATORYCLIA [id number] [address] NURSING PROGon 07-15-2021 NURSING PROG Normal [facility] NURSING PROG Normal [facility] NURSING PROG Normal [facility] NUTRITIONon 07-15-2021 NUTRITION Normal [facility] Phosphate SerPl-mCncon 07-15 Phosphate [Mass/Vol] 3.4 mg/dL Normal 2.7-4.8 [facility] Comment on above: Order Comment: Speci men Type: BLOOD SPECIMENOrdering Facility: [facility] Address: [address] [place] [address] Performed By: #### 2 4321-2, 27763-3, 2777-1 ####[facility] LABORATORYCLIA [id number] [address] THERAPY NTon 07-15-2021 THERAPY NT Normal [facility] US DVT UPPER LTon 07-15-2021 US DVT UPPER LT Normal [facility] XR CHEST 1V FRONTALon 2021 XR CHEST 1V FRONTAL Normal [facility] aPTT PPPon 07-15-2021 aPTT Coag (PPP) [Time] 59.9 s High 23.0-32.4 [facility] Comment on above: Order Comment: Speci men Type: BLOOD SPECIMENOrdering Facility: [facility] Address: [address] [place] [address] Performed By: #### 1 4979-9 ####[facility] LABORATORYCLIA [id number] [address] [place] Basic metabolic 2000 panelon 07-14-2021 Anion gap [Moles/Vol] 9 mmol/L Normal 9-18 [facility] Comment on above: Order Comment: Speci men Type: BLOOD SPECIMENOrdering Facility: [facility] Address: [address] [place] [address] Performed By: #### 1 9123-9, 2777-1, 16674-4 ####[facility] LABORATORYCLIA [id number] [address] [place] Calcium [Mass/Vol] 8.5 mg/dL Normal 8.5-10.2 [facility] Comment on above: Order Comment: Speci men Type: BLOOD SPECIMENOrdering Facility: [facility] Address: [address] [place] [address] Performed By: #### 1 9123-9, 2776-05, 02533-3 ####[facility]ORATORYCLIA [id number] [place] [address] [place] Chloride [Moles/Vol] 99 mmol/L Normal 97-105 [facility] Comment on above: Order Comment: Speci men Type: BLOOD SPECIMENOrdering Facility: [facility] Address: [address] [place] [address] Performed By: #### 1 9123-9, 2776-05, ####[facility]ORATORYCLIA [id number] [address] [place] CO2 [Moles/Vol] 31 mmol/L High 22-30 [facility] Comment on above: Order Comment: Speci men Type: BLOOD SPECIMENOrdering Facility: [facility] Address: [address] [place] [address] Performed By: #### 1 9123-9, 2776-05, ####[facility]ORATORYCLIA [id number] [address] [place] Creatinine [Mass/Vol] 0.74 mg/dL Normal 0.73-1.22 [facility] Comment on above: Order Comment: Speci men Type: BLOOD SPECIMENOrdering Facility: [facility] Address: [address] [place] [address] Performed By: #### 1 9123-9, 2776-05, 52238-9 ####[facility] LABORATORYCLIA [id number] [address] ESTIMATED GLOMERULAR FILTRATION RATE 98 mL/min/1.73m??? Normal >=60 [facility] Comment on above: Order Comment: Speci men Type: BLOOD SPECIMENOrdering Facility: [facility] Address: [address] [id number] Result Comment: Luzmaria mated Glomerular Filtration Rate (eGFR) is calculated using the 2020 CKD-EPI creatinine equation. This equation utilizes serum creatinine, sex, and age as parameters. The creatinine assay has traceable calibration to isotope dilution-mass spectrometry. Refer to KDIGO guidelines for clinical interpretation. In patients with unstable renal function, e.g. those with acute kidney injury, the eGFR may not accurately reflect actual GFR. Performed By: #### 1 9123-9, 2777-, 50279-0 ####[facility] HOSPITALIA [id number] [place] [address] [place] Glucose [Mass/Vol] 117 mg/dL High 74-99 [facility] Comment on above: Order Comment: Shira feldman Type: BLOOD SPECIMENOrdering Facility: [facility] Address: [address] [address] Result Comment: The [place] [employer] (ADA) provides guidance for cutoff values for fasting glucose and random glucose. The ADA defines fasting as no caloric intake for at least 8 hours. Fasting plasma glucose results between 100 to 125 mg/dL indicate increased risk for diabetes (prediabetes).Fasting plasma glucose results greater than or equal to 126 mg/dL meet the criteria for diagnosis of diabetes. In the absence of unequivocal hyperglycemia, results should be confirmed by repeat testing. In a patient with classic symptoms of hyperglycemia or hyperglycemic crisis, random plasma glucose results greater than or equal to 200 mg/dL meet the criteria for diagnosis of diabetes.Reference: Standards of Medical Care in Diabetes 2016, [place] [employer]. Diabetes Care. 2016.39(Suppl 1). Performed By: #### 1 9123-9, 2777-, 47740-1 ####[facility] LABORATORYCLIA [id number] [place] [address] [place] Potassium [Moles/Vol] 3.7 mmol/L Normal 3.7-5.1 [facility] Comment on above: Order Comment: Shira feldman Type: BLOOD SPECIMENOrdering Facility: [facility] Address: [address] [id number] Performed By: #### 1 9123-9, 2777-, 63205-1 ####[facility]ORATORYCLIA [id number] [address] [place] Sodium [Moles/Vol] 139 mmol/L Normal 136-144 [facility] Comment on above: Order Comment: Speci men Type: BLOOD SPECIMENOrdering Facility: [facility] Address: [address] [place] [address] Performed By: #### 1 9123-9, 2777, 45080-8 ####[facility]ORATORYCLIA [id number] [address] [place] Urea nitrogen [Mass/Vol] 16 mg/dL Normal 9-24 [facility] Comment on above: Order Comment: Speci men Type: BLOOD SPECIMENOrdering Facility: [facility] Address: [address] [place] [address] Performed By: #### 1 9123-9, 2777, 09628-6 ####[facility]ORATORYCLIA [id number] [address] [place] CBC panel Auto (Bld)on 07-14 Erythrocyte distribution width (RBC) [Ratio] 16.2 % High 11.5-15.0 [facility] Comment on above: Order Comment: Speci men Type: BLOOD SPECIMENOrdering Facility: [facility] Address: [address] [place] [address] Performed By: #### 5 8410-2 ####[facility] LABORATORYCLIA [id number] [address] [place] Hematocrit (Bld) [Volume fraction] 29.7 % Low 39.0-51.0 [facility] Comment on above: Order Comment: Speci men Type: BLOOD SPECIMENOrdering Facility: [facility] Address: [address] [place] [address] Performed By: #### 5 8410-2 ####[facility]ORATORYCLIA [id number] [address] [place] Hemoglobin (Bld) [Mass/Vol] 8.8 g/dL Low 13.0-17.0 [facility] Comment on above: Order Comment: Speci men Type: BLOOD SPECIMENOrdering Facility: [facility] Address: [address] [place] [address] Performed By: #### 5 8410-2 ####[facility]ORATORYCLIA [id number] [address] MCH (RBC) [Entitic mass] 27.5 pg Normal 26.0-34.0 [facility] Comment on above: Order Comment: Speci men Type: BLOOD SPECIMENOrdering Facility: [facility] Address: [address] [place] [address] Performed By: #### 5 8410-2 ####[facility]ORATORYCLIA [id number] [address] [place] MCHC (RBC) [Mass/Vol] 29.6 g/dL Low 30.5-36.0 [facility] Comment on above: Order Comment: Speci men Type: BLOOD SPECIMENOrdering Facility: [facility] Address: [address] [place] [address] Performed By: #### 5 8410-2 ####[facility]ORATORYCLIA [id number] [address] STATES [facility] MCV (RBC) [Entitic vol] 92.8 fL Normal 80.0-100.0 [facility] Comment on above: Order Comment: Speci men Type: BLOOD SPECIMENOrdering Facility: [facility] Address: [address] [place] [address] Performed By: #### 5 8410-2 ####[facility] LABORATORYCLIA [id number] [address] Nucleated RBC (Bld) [#/Vol] 10*3/uL Normal <0.01 [facility] Comment on above: Order Comment: Speci men Type: BLOOD SPECIMENOrdering Facility: [facility] Address: [address] [place] [address] Performed By: #### 5 8410-2 ####[facility] LABORATORYCLIA [id number] [address] [place] Platelet mean volume (Bld) [Entitic vol] 9.6 fL Normal 9.0-12.7 [facility] Comment on above: Order Comment: Speci men Type: BLOOD SPECIMENOrdering Facility: [facility] Address: [address] [place] [address] Performed By: #### 5 8410-2 ####[facility] LABORATORYCLIA [id number] [place] [address] [place] Platelets (Bld) [#/Vol] 354 10*3/uL Normal 150-400 [facility] Comment on above: Order Comment: Speci men Type: BLOOD SPECIMENOrdering Facility: [facility] Address: [address] [place] [address] Performed By: #### 5 8410-2 ####[facility] LABORATORYCLIA [id number] [place] [address] [place] RBC (Bld) [#/Vol] 3.20 10*6/uL Low 4.20-6.00 [facility] Comment on above: Order Comment: Speci men Type: BLOOD SPECIMENOrdering Facility: [facility] Address: [address] [place] [address] Performed By: #### 5 8410-2 ####[facility] LABORATORYCLIA [id number] [place] [address] [place] WBC (Bld) [#/Vol] 9.41 10*3/uL Normal 3.70-11.00 [facility] Comment on above: Order Comment: Speci men Type: BLOOD SPECIMENOrdering Facility: [facility] Address: [address] [place] [address] Performed By: #### 5 8410-2 ####[facility] LABORATORYCLIA [id number] [address] [place] CONSULT PROGon 07-14-2021 CONSULT PROG Normal [facility] Magnesium SerPl-mCncon 07-14 Magnesium [Mass/Vol] 2.2 mg/dL Normal 1.7-2.3 [facility] Comment on above: Order Comment: Speci men Type: BLOOD SPECIMENOrdering Facility: [facility] Address: [address] [place] [address] Performed By: #### 1 9123-9, 2777-1, 48389-2 ####[facility]ORATORYCLIA [id number] [address] [place] [facility] NURSING PROGon 07-14-2021 NURSING PROG Normal [facility] Phosphate SerPl-mCncon 07-14 Phosphate [Mass/Vol] 3.6 mg/dL Normal 2.7-4.8 [facility] Comment on above: Order Comment: Speci men Type: BLOOD SPECIMENOrdering Facility: [facility] Address: [address] [place] [address] Performed By: #### 1 9123-9, 2777-, 14935-8 ####[facility]ORATORYCLIA [id number] [address] [place] aPTT PPPon 07-14-2021 aPTT Coag (PPP) [Time] 62.9 s High 23.0-32.4 [facility] Comment on above: Order Comment: Speci men Type: BLOOD SPECIMENOrdering Facility: [facility] Address: [address] [place] [address] Performed By: #### 1 4979-9 ####[facility] LABORATORYCLIA [id number] [address] [place] aPTT Coag (PPP) [Time] 55.2 s High 23.0-32.4 [facility] Comment on above: Order Comment: Speci men Type: BLOOD SPECIMENOrdering Facility: [facility] Address: [address] [place] [address] Performed By: #### 1 4979-9 ####[facility]ORATORYCLIA [id number] [place] [address] [place] Basic metabolic 2000 panelon 07-13-2021 Anion gap [Moles/Vol] 10 mmol/L Normal 9-18 [facility] Comment on above: Order Comment: Speci men Type: BLOOD SPECIMENOrdering Facility: [facility] Address: [address] [place] [address] Performed By: #### 1 9123-9, 2777-1, 37070-2 ####[facility]ORATORYCLIA [id number] [place] [address] [place] Calcium [Mass/Vol] 8.5 mg/dL Normal 8.5-10.2 [facility] Comment on above: Order Comment: Speci men Type: BLOOD SPECIMENOrdering Facility: [facility] Address: [address] [place] [address] Performed By: #### 1 9123-9, 2777-1, 98928-9 ####[facility] LABORATORYCLIA [id number] [place] [address] [place] Chloride [Moles/Vol] 98 mmol/L Normal 97-105 [facility] Comment on above: Order Comment: Speci men Type: BLOOD SPECIMENOrdering Facility: [facility] Address: [address] [place] [address] Performed By: #### 1 9123-9, 2777-1, 32678-7 ####[facility] LABORATORYCLIA [id number] [place] [address] [place] CO2 [Moles/Vol] 32 mmol/L High 22-30 [facility] Comment on above: Order Comment: Speci men Type: BLOOD SPECIMENOrdering Facility: [facility] Address: [address] [place] [address] Performed By: #### 1 9123-9, 2777-1, 05356-7 ####[facility]ORATORYCLIA [id number] [place] [address] [place] Creatinine [Mass/Vol] 0.75 mg/dL Normal 0.73-1.22 [facility] Comment on above: Order Comment: Shira feldman Type: BLOOD SPECIMENOrdering Facility: [facility] Address: [address] [phone] Performed By: #### 1 9123-9, 2777-1, 43240-8 ####[facility] LABORATORYCLIA [id number] [address] [place] [id number] [place] ESTIMATED GLOMERULAR FILTRATION RATE 98 mL/min/1.73m??? Normal >=60 [facility] Comment on above: Order Comment: Shira francia Type: BLOOD SPECIMENOrdering Facility: [facility] Address: [address] Result Comment: Luzmaria mated Glomerular Filtration Rate (eGFR) is calculated using the 2020 CKD-EPI creatinine equation. This equation utilizes serum creatinine, sex, and age as parameters. The creatinine assay has traceable calibration to isotope dilution-mass spectrometry. Refer to KDIGO guidelines for clinical interpretation. In patients with unstable renal function, e.g. those with acute kidney injury, the eGFR may not accurately reflect actual GFR. Performed By: #### 1 9123-9, 2777-1, 35279-2 ####[facility]ORATORYCLIA [id number] [place] [address] [place] Glucose [Mass/Vol] 118 mg/dL High 74-99 [facility] Comment on above: Order Comment: Shira feldman Type: BLOOD SPECIMENOrdering Facility: [facility] Address: [address] [address] Result Comment: The [place] [employer] (ADA) provides guidance for cutoff values for fasting glucose and random glucose. The ADA defines fasting as no caloric intake for at least 8 hours. Fasting plasma glucose results between 100 to 125 mg/dL indicate increased risk for diabetes (prediabetes).Fasting plasma glucose results greater than or equal to 126 mg/dL meet the criteria for diagnosis of diabetes. In the absence of unequivocal hyperglycemia, results should be confirmed by repeat testing. In a patient with classic symptoms of hyperglycemia or hyperglycemic crisis, random plasma glucose results greater than or equal to 200 mg/dL meet the criteria for diagnosis of diabetes.Reference: Standards of Medical Care in Diabetes 2016, [place] [employer]. Diabetes Care. 2016.39(Suppl 1). Performed By: #### 1 9123-9, 2777-1, 09857-6 ####[facility] LABORATORYCLIA [id number] [place] [address] [place] Potassium [Moles/Vol] 3.6 mmol/L Low 3.7-5.1 [facility] Comment on above: Order Comment: Speci men Type: BLOOD SPECIMENOrdering Facility: [facility] Address: [address] [place] [address] Performed By: #### 1 9123-9, 2777-1, 47915-4 ####[facility]ORATORYCLIA [id number] [address] [place] Sodium [Moles/Vol] 140 mmol/L Normal 136-144 [facility] Comment on above: Order Comment: Speci men Type: BLOOD SPECIMENOrdering Facility: [facility] Address: [address] [place] [address] Performed By: #### 1 9123-9, 2777-1, 54592-3 ####[facility] LABORATORYCLIA [id number] [place] [address] [place] Urea nitrogen [Mass/Vol] 15 mg/dL Normal 9-24 [facility] Comment on above: Order Comment: Speci men Type: BLOOD SPECIMENOrdering Facility: [facility] Address: [address] [place] [address] Performed By: #### 1 9123-9, 2777-1, 39854-8 ####[facility] LABORATORYCLIA [id number] [address] [id number] [place] CASE MANAGEMon 07-13-2021 CASE MANAGEM Normal [facility] CBC panel Auto (Bld)on 07-13 Erythrocyte distribution width (RBC) [Ratio] 16.2 % High 11.5-15.0 [facility] Comment on above: Order Comment: Speci men Type: BLOOD SPECIMENOrdering Facility: [facility] Address: [address] [place] [address] Performed By: #### 5 8410-2 ####[facility] LABORATORYCLIA [id number] [address] Hematocrit (Bld) [Volume fraction] 29.5 % Low 39.0-51.0 [facility] Comment on above: Order Comment: Speci men Type: BLOOD SPECIMENOrdering Facility: [facility] Address: [address] [place] [address] Performed By: #### 5 8410-2 ####[facility]ORATORYCLIA [id number] [address] Hemoglobin (Bld) [Mass/Vol] 8.9 g/dL Low 13.0-17.0 [facility] Comment on above: Order Comment: Speci men Type: BLOOD SPECIMENOrdering Facility: [facility] Address: [address] [place] [address] Performed By: #### 5 8410-2 ####[facility] LABORATORYCLIA [id number] [address] MCH (RBC) [Entitic mass] 27.8 pg Normal 26.0-34.0 [facility] Comment on above: Order Comment: Speci men Type: BLOOD SPECIMENOrdering Facility: [facility] Address: [address] [place] [address] Performed By: #### 5 8410-2 ####[facility] LABORATORYCLIA [id number] [address] [place] MCHC (RBC) [Mass/Vol] 30.2 g/dL Low 30.5-36.0 [facility] Comment on above: Order Comment: Speci men Type: BLOOD SPECIMENOrdering Facility: [facility] Address: [address] [place] [address] Performed By: #### 5 8410-2 ####[facility] LABORATORYCLIA [id number] [address] MCV (RBC) [Entitic vol] 92.2 fL Normal 80.0-100.0 [facility] Comment on above: Order Comment: Speci men Type: BLOOD SPECIMENOrdering Facility: [facility] Address: [facility] [address] Performed By: #### 5 8410-2 ####[facility] LABORATORYCLIA [id number] [address] [place] Nucleated RBC (Bld) [#/Vol] 10*3/uL Normal <0.01 [facility] Comment on above: Order Comment: Speci men Type: BLOOD SPECIMENOrdering Facility: [facility] Address: [address] [place] [address] Performed By: #### 5 8410-2 ####[facility] LABORATORYCLIA [id number] [address] [place] Platelet mean volume (Bld) [Entitic vol] 9.8 fL Normal 9.0-12.7 [facility] Comment on above: Order Comment: Speci men Type: BLOOD SPECIMENOrdering Facility: [facility] Address: [address] [place] [address] Performed By: #### 5 8410-2 ####[facility] LABORATORYCLIA [id number] [address] [place] Platelets (Bld) [#/Vol] 356 10*3/uL Normal 150-400 [facility] Comment on above: Order Comment: Speci men Type: BLOOD SPECIMENOrdering Facility: [facility] Address: [address] Performed By: #### 5 8410-2 ####[facility] LABORATORYCLIA [id number] [place] [address] [place] RBC (Bld) [#/Vol] 3.20 10*6/uL Low 4.20-6.00 [facility] Comment on above: Order Comment: Speci men Type: BLOOD SPECIMENOrdering Facility: [facility] Address: [address] [place], [place] [address] Performed By: #### 5 8410-2 ####[facility] LABORATORYCLIA [id number] [address] [place] WBC (Bld) [#/Vol] 9.20 10*3/uL Normal 3.70-11.00 [facility] Comment on above: Order Comment: Speci men Type: BLOOD SPECIMENOrdering Facility: [facility] Address: [address] [place] [address] Performed By: #### 5 8410-2 ####[facility] LABORATORYCLIA [id number] [address] CONSULT PROGon 07-13-2021 CONSULT PROG Normal [facility] CONSULT PROG Normal [facility] CONSULT PROG Normal [facility] Magnesium SerPl-mCncon 07-13 Magnesium [Mass/Vol] 2.1 mg/dL Normal 1.7-2.3 [facility] Comment on above: Order Comment: Speci men Type: BLOOD SPECIMENOrdering Facility: [facility] Address: [address] [place] [address] Performed By: #### 1 9123-9, 2777-1, 37915-7 ####[facility] LABORATORYCLIA [id number] [address] Phosphate SerPl-mCncon 07-13 Phosphate [Mass/Vol] 3.7 mg/dL Normal 2.7-4.8 [facility] Comment on above: Order Comment: Speci men Type: BLOOD SPECIMENOrdering Facility: [facility] Address: [address] [place] [address] Performed By: #### 1 9123-9, 2777-1, 22400-7 ####[facility]ORATORYCLIA [id number] [address] THERAPY NTon 07-13-2021 THERAPY NT Normal [facility] THERAPY NT Normal [facility] Vancomycin random [Mass/Vol] on 07-13-2021 Vancomycin [Mass/Vol] 31.7 ug/mL High 10.0-20.0 [facility] Comment on above: Order Comment: Speci men Type: BLOOD SPECIMENOrdering Facility: [facility] Address: [address] [place] [address] Result Comment: Refe rence ranges and high/low indicator flags are provided as general guidelines only. The treating physician must determine appropriate target levels/dosing based on the specific clinical situation. Performed By: #### 4 091-5 ####[facility] LABORATORYCLIA [id number] [address] aPTT PPPon 07-13-2021 aPTT Coag (PPP) [Time] 47.3 s High 23.0-32.4 [facility] Comment on above: Order Comment: Speci men Type: BLOOD SPECIMENOrdering Facility: [facility] Address: [address] [place] [address] Performed By: #### 1 4979-9 ####[facility] [id number] [address] aPTT Coag (PPP) [Time] 51.2 s High 23.0-32.4 [facility] Comment on above: Order Comment: Speci men Type: BLOOD SPECIMENOrdering Facility: [facility] Address: [address] [place] [address] Performed By: #### 1 4979-9 ####[facility] LABORATORYCLIA [id number] [address] aPTT Coag (PPP) [Time] 47.5 s High 23.0-32.4 [facility] Comment on above: Order Comment: Speci men Type: BLOOD SPECIMENOrdering Facility: [facility] Address: [address] [place] [address] Performed By: #### 1 4979-9 ####[facility] LABORATORYCLIA [id number] [address] OF [facility] Basic metabolic 2000 panelon 07-12-2021 Anion gap [Moles/Vol] 7 mmol/L Low 9-18 [facility] Comment on above: Order Comment: Speci men Type: BLOOD SPECIMENOrdering Facility: [facility] Address: [address] [place] [address] Performed By: #### 1 9123-9, 27711-04, 03469-6 ####[facility] LABORATORYCLIA [id number] [place] [address] [place] Calcium [Mass/Vol] 8.3 mg/dL Low 8.5-10.2 [facility] Comment on above: Order Comment: Speci men Type: BLOOD SPECIMENOrdering Facility: [facility] Address: [address] [place] [address] Performed By: #### 1 9123-9, 27711-04, 56102-2 ####[facility] LABORATORYCLIA [id number] [place] [address] [place] Chloride [Moles/Vol] 101 mmol/L Normal 97-105 [facility] Comment on above: Order Comment: Speci men Type: BLOOD SPECIMENOrdering Facility: [facility] Address: [address] [place] [address] Performed By: #### 1 9123-9, 2776-05, ####[facility] LABORATORYCLIA [id number] [place] [address] [place] CO2 [Moles/Vol] 32 mmol/L High 22-30 [facility] Comment on above: Order Comment: Speci men Type: BLOOD SPECIMENOrdering Facility: [facility] Address: [address] [address] Performed By: #### 1 9123-9, 2776-05, 43095-2 ####[facility] LABORATORYCLIA [id number] [place] [address] [place] Creatinine [Mass/Vol] 0.70 mg/dL Low 0.73-1.22 [facility] Comment on above: Order Comment: Speci men Type: BLOOD SPECIMENOrdering Facility: [facility] Address: [address] [place] [address] Performed By: #### 1 9123-9, 2777-1, 99166-9 ####[facility] [id number] [address] [place] ESTIMATED GLOMERULAR FILTRATION RATE 100 mL/min/1.73m??? Normal >=60 [facility] Comment on above: Order Comment: Shira feldman Type: BLOOD SPECIMENOrdering Facility: [facility] Address: [address] [place] [address] Result Comment: Luzmaria mated Glomerular Filtration Rate (eGFR) is calculated using the 2020 CKD-EPI creatinine equation. This equation utilizes serum creatinine, sex, and age as parameters. The creatinine assay has traceable calibration to isotope dilution-mass spectrometry. Refer to KDIGO guidelines for clinical interpretation. In patients with unstable renal function, e.g. those with acute kidney injury, the eGFR may not accurately reflect actual GFR. Performed By: #### 1 9123-9, 2777-, 55171-6 ####[facility]ITALCLIA [id number] [place] [address] [place] Glucose [Mass/Vol] 104 mg/dL High 74-99 [facility] Comment on above: Order Comment: Shira feldman Type: BLOOD SPECIMENOrdering Facility: [facility] Address: [address] [place] [address] Result Comment: The [place] Diabetes Association (ADA) provides guidance for cutoff values for fasting glucose and random glucose. The ADA defines fasting as no caloric intake for at least 8 hours. Fasting plasma glucose results between 100 to 125 mg/dL indicate increased risk for diabetes (prediabetes).Fasting plasma glucose results greater than or equal to 126 mg/dL meet the criteria for diagnosis of diabetes. In the absence of unequivocal hyperglycemia, results should be confirmed by repeat testing. In a patient with classic symptoms of hyperglycemia or hyperglycemic crisis, random plasma glucose results greater than or equal to 200 mg/dL meet the criteria for diagnosis of diabetes.Reference: Standards of Medical Care in Diabetes 2016, [place] [employer]. Diabetes Care. 2016.39(Suppl 1). Performed By: #### 1 9123-9, 2777-1, 38566-0 ####[facility] LABORATORYCLIA [id number] [address] [place] Potassium [Moles/Vol] 3.7 mmol/L Normal 3.7-5.1 [facility] Comment on above: Order Comment: Speci men Type: BLOOD SPECIMENOrdering Facility: [facility] Address: [address] [place] [address] Performed By: #### 1 9123-9, 2777-1, 35317-6 ####[facility]ORATORYCLIA [id number] [address] STATES [facility] Sodium [Moles/Vol] 140 mmol/L Normal 136-144 [facility] Comment on above: Order Comment: Speci men Type: BLOOD SPECIMENOrdering Facility: [facility] Address: [address] [place] [address] Performed By: #### 1 9123-9, 2777-1, 91212-4 ####[facility]ITALCLIA [id number] [address] Urea nitrogen [Mass/Vol] 12 mg/dL Normal 9-24 [facility] Comment on above: Order Comment: Speci men Type: BLOOD SPECIMENOrdering Facility: [facility] Address: [address] [place] [address] Performed By: #### 1 9123-9, 2777-1, 27539-3 ####[facility] LABORATORYCLIA [id number] [address] CBC panel Auto (Bld)on 07-12 Erythrocyte distribution width (RBC) [Ratio] 16.1 % High 11.5-15.0 [facility] Comment on above: Order Comment: Speci men Type: BLOOD SPECIMENOrdering Facility: [facility] Address: [address] [place] [address] Performed By: #### 5 8410-2 ####[facility] LABORATORYCLIA [id number] [address] Hematocrit (Bld) [Volume fraction] 28.2 % Low 39.0-51.0 [facility] Comment on above: Order Comment: Speci men Type: BLOOD SPECIMENOrdering Facility: [facility] Address: [address] [place] [address] Performed By: #### 5 8410-2 ####[facility]ORATORYCLIA [id number] [address] OF [facility] Hemoglobin (Bld) [Mass/Vol] 8.5 g/dL Low 13.0-17.0 [facility] Comment on above: Order Comment: Speci men Type: BLOOD SPECIMENOrdering Facility: [facility] Address: [address] [place] [address] Performed By: #### 5 8410-2 ####[facility]ORATORYCLIA [id number] [address] STATES OF [facility] MCH (RBC) [Entitic mass] 26.8 pg Normal 26.0-34.0 [facility] Comment on above: Order Comment: Speci men Type: BLOOD SPECIMENOrdering Facility: [facility] Address: [address] [place] [address] Performed By: #### 5 8410-2 ####[facility]ORATORYCLIA [id number] [address] MCHC (RBC) [Mass/Vol] 30.1 g/dL Low 30.5-36.0 [facility] Comment on above: Order Comment: Speci men Type: BLOOD SPECIMENOrdering Facility: [facility] Address: [address] [place] [address] Performed By: #### 5 8410-2 ####[facility]ORATORYCLIA [id number] [address] MCV (RBC) [Entitic vol] 89.0 fL Normal 80.0-100.0 [facility] Comment on above: Order Comment: Speci men Type: BLOOD SPECIMENOrdering Facility: [facility] Address: [address] [place] [address] Performed By: #### 5 8410-2 ####[facility]ORATORYCLIA [id number] [address] [place] Nucleated RBC (Bld) [#/Vol] 10*3/uL Normal <0.01 [facility] Comment on above: Order Comment: Speci men Type: BLOOD SPECIMENOrdering Facility: [facility] Address: [address] [place] [address] Performed By: #### 5 8410-2 ####[facility] LABORATORYCLIA [id number] [address] [place] Platelet mean volume (Bld) [Entitic vol] 9.6 fL Normal 9.0-12.7 [facility] Comment on above: Order Comment: Speci men Type: BLOOD SPECIMENOrdering Facility: [facility] Address: [address] [place] [address] Performed By: #### 5 8410-2 ####[facility]ORATORYCLIA [id number] [address] [place] Platelets (Bld) [#/Vol] 340 10*3/uL Normal 150-400 [facility] Comment on above: Order Comment: Speci men Type: BLOOD SPECIMENOrdering Facility: [facility] Address: [address] [place] [address] Performed By: #### 5 8410-2 ####[facility]ORATORYCLIA [id number] [address] [place] RBC (Bld) [#/Vol] 3.17 10*6/uL Low 4.20-6.00 [facility] Comment on above: Order Comment: Speci men Type: BLOOD SPECIMENOrdering Facility: [facility] Address: [address] [place] [address] Performed By: #### 5 8410-2 ####[facility]ORATORYCLIA [id number] [address] [place] WBC (Bld) [#/Vol] 8.66 10*3/uL Normal 3.70-11.00 [facility] Comment on above: Order Comment: Speci men Type: BLOOD SPECIMENOrdering Facility: [facility] Address: [address] [place] [address] Performed By: #### 5 8410-2 ####[facility] LABORATORYCLIA [id number] [address] [place] CONSULTon 07-12-2021 CONSULT Normal [facility] CONSULT PROGon 07-12-2021 CONSULT PROG Normal [facility] Magnesium SerPl-mCncon 07-12 Magnesium [Mass/Vol] 2.1 mg/dL Normal 1.7-2.3 [facility] Comment on above: Order Comment: Speci men Type: BLOOD SPECIMENOrdering Facility: [facility] Address: [address] [place] [address] Performed By: #### 1 9123-9, 2777-1, 05574-1 ####[facility]ORATORYCLIA [id number] [address] OF [facility] NURSING PROGon 07-12-2021 NURSING PROG Normal [facility] Phosphate SerPl-mCncon 07-12 Phosphate [Mass/Vol] 3.1 mg/dL Normal 2.7-4.8 [facility] Comment on above: Order Comment: Speci men Type: BLOOD SPECIMENOrdering Facility: [facility] Address: [address] [place] [address] Performed By: #### 1 9123-9, 2777-1, 25854-0 ####[facility] LABORATORYCLIA [id number] [address] THERAPY NTon 07-12-2021 THERAPY NT Normal [facility] aPTT PPPon 07-12-2021 aPTT Coag (PPP) [Time] 49.5 s High 23.0-32.4 [facility] Comment on above: Order Comment: Speci men Type: BLOOD SPECIMENOrdering Facility: [facility] Address: [address] [place] [address] Performed By: #### 1 4979-9 ####[facility]ORATORYCLIA [id number] [address] [place] aPTT Coag (PPP) [Time] 68.0 s High 23.0-32.4 [facility] Comment on above: Order Comment: Speci men Type: BLOOD SPECIMENOrdering Facility: [facility] Address: [address] [place] [address] Performed By: #### 1 4979-9 ####[facility]ORATORYCLIA [id number] [address] [place] aPTT Coag (PPP) [Time] 80.0 s High 23.0-32.4 [facility] Comment on above: Order Comment: Speci men Type: BLOOD SPECIMENOrdering Facility: [facility] Address: [address] [place] [address] Performed By: #### 1 4979-9 ####[facility]ORATORYCLIA [id number] [address] [place] CASE MGT INIT ASSESon 2021 CASE MGT INIT ASSES Normal [facility] CBC panel Auto (Bld)on 07-11 Erythrocyte distribution width (RBC) [Ratio] 16.3 % High 11.5-15.0 [facility] Comment on above: Order Comment: Speci men Type: BLOOD SPECIMENOrdering Facility: [facility] Address: [address] [place] [address] Performed By: #### 5 8410-2 ####[facility]ORATORYCLIA [id number] [address] OF [facility] Hematocrit (Bld) [Volume fraction] 28.3 % Low 39.0-51.0 [facility] Comment on above: Order Comment: Speci men Type: BLOOD SPECIMENOrdering Facility: [facility] Address: [address] [place] [address] Performed By: #### 5 8410-2 ####[facility]ORATORYCLIA [id number] [address] Hemoglobin (Bld) [Mass/Vol] 8.8 g/dL Low 13.0-17.0 [facility] Comment on above: Order Comment: Speci men Type: BLOOD SPECIMENOrdering Facility: [facility] Address: [address] [place] [address] Performed By: #### 5 8410-2 ####[facility]ORATORYCLIA [id number] [address] MCH (RBC) [Entitic mass] 27.4 pg Normal 26.0-34.0 [facility] Comment on above: Order Comment: Speci men Type: BLOOD SPECIMENOrdering Facility: [facility] Address: [address] [place] [address] Performed By: #### 5 8410-2 ####[facility]ORATORYCLIA [id number] [address] MCHC (RBC) [Mass/Vol] 31.1 g/dL Normal 30.5-36.0 [facility] Comment on above: Order Comment: Speci men Type: BLOOD SPECIMENOrdering Facility: [facility] Address: [address] [place] [address] Performed By: #### 5 8410-2 ####[facility]ORATORYCLIA [id number] [address] MCV (RBC) [Entitic vol] 88.2 fL Normal 80.0-100.0 [facility] Comment on above: Order Comment: Speci men Type: BLOOD SPECIMENOrdering Facility: [facility] Address: [address] [place] [address] Performed By: #### 5 8410-2 ####[facility]ORATORYCLIA [id number] [address] Nucleated RBC (Bld) [#/Vol] 10*3/uL Normal <0.01 [facility] Comment on above: Order Comment: Speci men Type: BLOOD SPECIMENOrdering Facility: [facility] Address: [address] Performed By: #### 5 8410-2 ####[facility]ORATORYCLIA [id number] [address] Platelet mean volume (Bld) [Entitic vol] 9.7 fL Normal 9.0-12.7 [facility] Comment on above: Order Comment: Speci men Type: BLOOD SPECIMENOrdering Facility: [facility] Address: [address] [place] [address] Performed By: #### 5 8410-2 ####[facility]ORATORYCLIA [id number] [address] [place] Platelets (Bld) [#/Vol] 315 10*3/uL Normal 150-400 [facility] Comment on above: Order Comment: Speci men Type: BLOOD SPECIMENOrdering Facility: [facility] Address: [address] [place] [address] Performed By: #### 5 8410-2 ####[facility]ORATORYCLIA [id number] [address] [place] RBC (Bld) [#/Vol] 3.21 10*6/uL Low 4.20-6.00 [facility] Comment on above: Order Comment: Speci men Type: BLOOD SPECIMENOrdering Facility: [facility] Address: [address] [place] [address] Performed By: #### 5 8410-2 ####[facility]ORATORYCLIA [id number] [address] [place] WBC (Bld) [#/Vol] 9.18 10*3/uL Normal 3.70-11.00 [facility] Comment on above: Order Comment: Speci men Type: BLOOD SPECIMENOrdering Facility: [facility] Address: [address] [place] [address] Performed By: #### 5 8410-2 ####[facility]ORATORYCLIA [id number] [address] CONSULT PROGon 07-11-2021 CONSULT PROG Normal [facility] CT BRAIN WO IVCONon 07-12-[address] BRAIN WO IVCON Normal [facility] Magnesium SerPl-mCncon 07-11 Magnesium [Mass/Vol] 2.1 mg/dL Normal 1.7-2.3 [facility] Comment on above: Order Comment: Speci men Type: BLOOD SPECIMENOrdering Facility: [facility] Address: [address] [place] [address] Performed By: #### 1 9123-9, 2777-1 ####[facility]ORATORYCLIA [id number] [address] NURSING PROGon 07-11-2021 NURSING PROG Normal [facility] NURSING PROG Normal [facility] Phosphate SerPl-ncon 07-11 Phosphate [Mass/Vol] 3.4 mg/dL Normal 2.7-4.8 [facility] Comment on above: Order Comment: Speci men Type: BLOOD SPECIMENOrdering Facility: [facility] Address: [address] [place] [address] Performed By: #### 1 9123-9, 2777-1 ####[facility]ORATORYCLIA [id number] [address] THERAPY NTon 07-11-2021 THERAPY NT Normal [facility] Vancomycin random [Mass/Vol] on 07-11-2021 Vancomycin [Mass/Vol] 28.6 ug/mL High 10.0-20.0 [facility] Comment on above: Order Comment: Speci men Type: BLOOD SPECIMENOrdering Facility: [facility] Address: [address] [place] [address] Result Comment: Refe rence ranges and high/low indicator flags are provided as general guidelines only. The treating physician must determine appropriate target levels/dosing based on the specific clinical situation. Performed By: #### 4 091-5 ####[facility]ATORYCLIA [id number] [address] aPTT PPPon 07-11-2021 aPTT Coag (PPP) [Time] 62.0 s High 23.0-32.4 [facility] Comment on above: Order Comment: Speci men Type: BLOOD SPECIMENOrdering Facility: [facility] Address: [address] [place] [address] Performed By: #### 1 4979-9 ####[facility]ATORYCLIA [id number] [address] aPTT Coag (PPP) [Time] 52.7 s High 23.0-32.4 [facility] Comment on above: Order Comment: Speci men Type: BLOOD SPECIMENOrdering Facility: [facility] Address: [address] [place] [address] Performed By: #### 1 4979-9 ####[facility]ATORYCLIA [id number] [address] aPTT Coag (PPP) [Time] 29.9 s Normal 23.0-32.4 [facility] Comment on above: Order Comment: Speci men Type: BLOOD SPECIMENOrdering Facility: [facility] Address: [address] [place] [address] Performed By: #### 1 4979-9 ####[facility]ORATORYCLIA [id number] [address] [place] Basic metabolic 2000 panelon 07-10-2021 Anion gap [Moles/Vol] 14 mmol/L Normal 9-18 [facility] Comment on above: Order Comment: Speci men Type: BLOOD SPECIMENOrdering Facility: [facility] Address: [address] [place] [address] Performed By: #### 1 9123-9, 2777-1, 16830-5 ####[facility]ORATORYCLIA [id number] [address] STATES [facility] Calcium [Mass/Vol] 8.5 mg/dL Normal 8.5-10.2 [facility] Comment on above: Order Comment: Speci men Type: BLOOD SPECIMENOrdering Facility: [facility] Address: [address] [address] Performed By: #### 1 9123-9, 27711-04, 65819-4 ####[facility] LABORATORYCLIA [id number] [place] [address] [place] Chloride [Moles/Vol] 100 mmol/L Normal 97-105 [facility] Comment on above: Order Comment: Speci men Type: BLOOD SPECIMENOrdering Facility: [facility] Address: [address] [place] [address] Performed By: #### 1 9123-9, 27711-04, 03686-8 ####[facility]ORATORYCLIA [id number] [address] [place] CO2 [Moles/Vol] 27 mmol/L Normal 22-30 [facility] Comment on above: Order Comment: Speci men Type: BLOOD SPECIMENOrdering Facility: [facility] Address: [address] [place] [address] Performed By: #### 1 9123-9, 27711-04, 69088-7 ####[facility]ORATORYCLIA [id number] [address] [place] Creatinine [Mass/Vol] 0.66 mg/dL Low 0.73-1.22 [facility] Comment on above: Order Comment: Speci men Type: BLOOD SPECIMENOrdering Facility: [facility] Address: [address] [place] [address] Performed By: #### 1 9123-9, 27711-04, 77741-6 ####[facility] LABORATORYCLIA [id number] [address] ESTIMATED GLOMERULAR FILTRATION RATE 102 mL/min/1.73m??? Normal >=60 [facility] Comment on above: Order Comment: Speci men Type: BLOOD SPECIMENOrdering Facility: [facility] Address: [address] [place] [address] Result Comment: Luzmaria mated Glomerular Filtration Rate (eGFR) is calculated using the 2020 CKD-EPI creatinine equation. This equation utilizes serum creatinine, sex, and age as parameters. The creatinine assay has traceable calibration to isotope dilution-mass spectrometry. Refer to KDIGO guidelines for clinical interpretation. In patients with unstable renal function, e.g. those with acute kidney injury, the eGFR may not accurately reflect actual GFR. Performed By: #### 1 9123-9, 2777-1, 15008-7 ####[facility] LABORATORYCLIA [id number] [place] [address] [place] Glucose [Mass/Vol] 93 mg/dL Normal 74-99 [facility] Comment on above: Order Comment: Speci men Type: BLOOD SPECIMENOrdering Facility: [facility] Address: [address] [place], [place] [id number] Result Comment: The [place] Diabetes Association (ADA) provides guidance for cutoff values for fasting glucose and random glucose. The ADA defines fasting as no caloric intake for at least 8 hours. Fasting plasma glucose results between 100 to 125 mg/dL indicate increased risk for diabetes (prediabetes).Fasting plasma glucose results greater than or equal to 126 mg/dL meet the criteria for diagnosis of diabetes. In the absence of unequivocal hyperglycemia, results should be confirmed by repeat testing. In a patient with classic symptoms of hyperglycemia or hyperglycemic crisis, random plasma glucose results greater than or equal to 200 mg/dL meet the criteria for diagnosis of diabetes.Reference: Standards of Medical Care in Diabetes 2016, [place] [employer]. Diabetes Care. 2016.39(Suppl 1). Performed By: #### 1 9123-9, 2777-, 13174-0 ####[facility]OSPITALIA [id number] [place] [address] [place] Potassium [Moles/Vol] 3.5 mmol/L Low 3.7-5.1 [facility] Comment on above: Order Comment: Johni men Type: BLOOD SPECIMENOrdering Facility: [facility] Address: [address] [id number] Performed By: #### 1 9123-9, 2777-, 92173-0 ####[facility]ORATORYCLIA [id number] [address] Sodium [Moles/Vol] 141 mmol/L Normal 136-144 [facility] Comment on above: Order Comment: Speci men Type: BLOOD SPECIMENOrdering Facility: [facility] Address: [address] [place] [address] Performed By: #### 1 9123-9, 2777-1, 62283-2 ####[facility]ORATORYCLIA [id number] [address] STATES OF [facility] Urea nitrogen [Mass/Vol] 11 mg/dL Normal 9-24 [facility] Comment on above: Order Comment: Speci men Type: BLOOD SPECIMENOrdering Facility: [facility] Address: [address] [place] [address] Performed By: #### 1 9123-9, 2777-1, 12266-2 ####[facility]ORATORYCLIA [id number] [address] CBC panel Auto (Bld)on 07-10 Erythrocyte distribution width (RBC) [Ratio] 16.2 % High 11.5-15.0 [facility] Comment on above: Order Comment: Speci men Type: BLOOD SPECIMENOrdering Facility: [facility] Address: [address] [place] [address] Performed By: #### 5 8410-2 ####[facility]ORATORYCLIA [id number] [address] [place] [facility] Hematocrit (Bld) [Volume fraction] 30.6 % Low 39.0-51.0 [facility] Comment on above: Order Comment: Speci men Type: BLOOD SPECIMENOrdering Facility: [facility] Address: [address] [place] [address] Performed By: #### 5 8410-2 ####[facility] LABORATORYCLIA [id number] [address] [place] Hemoglobin (Bld) [Mass/Vol] 9.6 g/dL Low 13.0-17.0 [facility] Comment on above: Order Comment: Speci men Type: BLOOD SPECIMENOrdering Facility: [facility] Address: [address] [place] [address] Performed By: #### 5 8410-2 ####[facility] LABORATORYCLIA [id number] [address] MCH (RBC) [Entitic mass] 28.3 pg Normal 26.0-34.0 [facility] Comment on above: Order Comment: Speci men Type: BLOOD SPECIMENOrdering Facility: [facility] Address: [address] [place] [address] Performed By: #### 5 8410-2 ####[facility] LABORATORYCLIA [id number] [address] MCHC (RBC) [Mass/Vol] 31.4 g/dL Normal 30.5-36.0 [facility] Comment on above: Order Comment: Speci men Type: BLOOD SPECIMENOrdering Facility: [facility] Address: [address] [place] [address] Performed By: #### 5 8410-2 ####[facility] LABORATORYCLIA [id number] [address] MCV (RBC) [Entitic vol] 90.3 fL Normal 80.0-100.0 [facility] Comment on above: Order Comment: Speci men Type: BLOOD SPECIMENOrdering Facility: [facility] Address: [address] [place] [address] Performed By: #### 5 8410-2 ####[facility] LABORATORYCLIA [id number] [address] Nucleated RBC (Bld) [#/Vol] 10*3/uL Normal <0.01 [facility] Comment on above: Order Comment: Speci men Type: BLOOD SPECIMENOrdering Facility: [facility] Address: [address] [place] [address] Performed By: #### 5 8410-2 ####[facility] LABORATORYCLIA [id number] [address] [place] Platelet mean volume (Bld) [Entitic vol] 9.7 fL Normal 9.0-12.7 [facility] Comment on above: Order Comment: Speci men Type: BLOOD SPECIMENOrdering Facility: [facility] Address: [address] [place] [address] Performed By: #### 5 8410-2 ####[facility] LABORATORYCLIA [id number] [place] [address] [place] Platelets (Bld) [#/Vol] 306 10*3/uL Normal 150-400 [facility] Comment on above: Order Comment: Speci men Type: BLOOD SPECIMENOrdering Facility: [facility] Address: [address] [place] [address] Performed By: #### 5 8410-2 ####[facility]ORATORYCLIA [id number] [place] [address] [place] RBC (Bld) [#/Vol] 3.39 10*6/uL Low 4.20-6.00 [facility] Comment on above: Order Comment: Speci men Type: BLOOD SPECIMENOrdering Facility: [facility] Address: [address] [place] [address] Performed By: #### 5 8410-2 ####[facility] LABORATORYCLIA [id number] [address] [place] WBC (Bld) [#/Vol] 9.81 10*3/uL Normal 3.70-11.00 [facility] Comment on above: Order Comment: Speci men Type: BLOOD SPECIMENOrdering Facility: [facility] Address: [address] [place] [address] Performed By: #### 5 8410-2 ####[facility] LABORATORYCLIA [id number] [address] [place] CONSULTon 07-10-2021 CONSULT Normal [facility] CONSULT Normal [facility] Magnesium SerPl-mCncon 07-10 Magnesium [Mass/Vol] 1.9 mg/dL Normal 1.7-2.3 [facility] Comment on above: Order Comment: Speci men Type: BLOOD SPECIMENOrdering Facility: [facility] Address: [address] [place] [address] Performed By: #### 1 9123-9, 2777-1, 71965-8 ####[facility] LABORATORYCLIA [id number] [address] OF [facility] NURSING PROGon 07-10-2021 NURSING PROG Normal [facility] NURSING PROG Normal [facility] NUTRITIONon 07-10-2021 NUTRITION Normal [facility] Phosphate SerPl-mCncon 07-10 Phosphate [Mass/Vol] 3.6 mg/dL Normal 2.7-4.8 [facility] Comment on above: Order Comment: Speci men Type: BLOOD SPECIMENOrdering Facility: [facility] Address: [address] [place] [address] Performed By: #### 1 9123-9, 2777-1, 00130-8 ####[facility] LABORATORYCLIA [id number] [place] [address] [place] US DVT LOWER BILon US DVT LOWER RAINER Normal [facility] aPTT PPPon 07-10-2021 aPTT Coag (PPP) [Time] 28.8 s Normal 23.0-32.4 [facility] Comment on above: Order Comment: Speci men Type: BLOOD SPECIMENOrdering Facility: [facility] Address: [address] [place] [address] Performed By: #### 1 4979-9 ####[facility]ORATORYCLIA [id number] [address] [place] aPTT Coag (PPP) [Time] 28.4 s Normal 23.0-32.4 [facility] Comment on above: Order Comment: Speci men Type: BLOOD SPECIMENOrdering Facility: [facility] Address: [address] [place] [address] Performed By: #### 1 4979-9 ####[facility] LABORATORYCLIA [id number] [place] [address] [place] ALLIED HEALTHon 07-09-2021 ALLIED HEALTH Normal [facility] Basic metabolic 2000 panelon 07-09-2021 Anion gap [Moles/Vol] 9 mmol/L Normal 9-18 [facility] Comment on above: Order Comment: Speci men Type: BLOOD SPECIMENOrdering Facility: [facility] Address: [address] [place] [address] Performed By: #### 1 9123-9, 2777, 26681-4 ####[facility]ORATORYCLIA [id number] [place] [address] [place] Calcium [Mass/Vol] 8.3 mg/dL Low 8.5-10.2 [facility] Comment on above: Order Comment: Speci men Type: BLOOD SPECIMENOrdering Facility: [facility] Address: [address] [place] [address] Performed By: #### 1 9123-9, 2777, 93063-5 ####[facility]ORATORYCLIA [id number] [place] [address] [place] Chloride [Moles/Vol] 100 mmol/L Normal 97-105 [facility] Comment on above: Order Comment: Speci men Type: BLOOD SPECIMENOrdering Facility: [facility] Address: [address] [place] [address] Performed By: #### 1 9123-9, 27711-04, 18338-4 ####[facility] LABORATORYCLIA [id number] [place] [address] [place] CO2 [Moles/Vol] 29 mmol/L Normal 22-30 [facility] Comment on above: Order Comment: Speci men Type: BLOOD SPECIMENOrdering Facility: [facility] Address: [address] [place] [address] Performed By: #### 1 9123-9, 2777-, 20934-3 ####[facility] LABORATORYCLIA [id number] [address] [place] Creatinine [Mass/Vol] 0.61 mg/dL Low 0.73-1.22 [facility] Comment on above: Order Comment: Shira feldman Type: BLOOD SPECIMENOrdering Facility: [facility] Address: [address] [place] [address] Performed By: #### 1 9123-9, 2777-1, 61318-2 ####[facility]OSPITALIA [id number] [address] ESTIMATED GLOMERULAR FILTRATION RATE 104 mL/min/1.73m??? Normal >=60 [facility] Comment on above: Order Comment: Shira feldman Type: BLOOD SPECIMENOrdering Facility: [facility] Address: [address] [place] [address] Result Comment: Luzmaria mated Glomerular Filtration Rate (eGFR) is calculated using the 2020 CKD-EPI creatinine equation. This equation utilizes serum creatinine, sex, and age as parameters. The creatinine assay has traceable calibration to isotope dilution-mass spectrometry. Refer to KDIGO guidelines for clinical interpretation. In patients with unstable renal function, e.g. those with acute kidney injury, the eGFR may not accurately reflect actual GFR. Performed By: #### 1 9123-9, 2777-, 78173-4 ####[facility] HOSPITALIA [id number] [address] [place] Glucose [Mass/Vol] 106 mg/dL High 74-99 [facility] Comment on above: Order Comment: Shira feldman Type: BLOOD SPECIMENOrdering Facility: [facility] Address: [address] [address] Result Comment: The [place] [employer] (ADA) provides guidance for cutoff values for fasting glucose and random glucose. The ADA defines fasting as no caloric intake for at least 8 hours. Fasting plasma glucose results between 100 to 125 mg/dL indicate increased risk for diabetes (prediabetes).Fasting plasma glucose results greater than or equal to 126 mg/dL meet the criteria for diagnosis of diabetes. In the absence of unequivocal hyperglycemia, results should be confirmed by repeat testing. In a patient with classic symptoms of hyperglycemia or hyperglycemic crisis, random plasma glucose results greater than or equal to 200 mg/dL meet the criteria for diagnosis of diabetes.Reference: Standards of Medical Care in Diabetes 2016, [place] [employer]. Diabetes Care. 2016.39(Suppl 1). Performed By: #### 1 9123-9, 2777-, 91403-1 ####[facility] LABORATORYCLIA [id number] [place] [address] [place] Potassium [Moles/Vol] 3.6 mmol/L Low 3.7-5.1 [facility] Comment on above: Order Comment: Speci men Type: BLOOD SPECIMENOrdering Facility: [facility] Address: [address] [place] [address] Performed By: #### 1 9123-9, 27711-04, 24885-1 ####[facility]ITALCLIA [id number] [address] STATES [place] [facility] Sodium [Moles/Vol] 138 mmol/L Normal 136-144 [facility] Comment on above: Order Comment: Speci men Type: BLOOD SPECIMENOrdering Facility: [facility] Address: [address] [place] [address] Performed By: #### 1 9123-9, 27711-04, 23237-2 ####[facility] LABORATORYCLIA [id number] [address] STATES [facility] Urea nitrogen [Mass/Vol] 12 mg/dL Normal 9-24 [facility] Comment on above: Order Comment: Speci men Type: BLOOD SPECIMENOrdering Facility: [facility] Address: [address] [place] [address] Performed By: #### 1 9123-9, 27711-04, 34673-1 ####[facility]ORATORYCLIA [id number] [address] [place] CBC panel Auto (Bld)on 07-09 Erythrocyte distribution width (RBC) [Ratio] 16.2 % High 11.5-15.0 [facility] Comment on above: Order Comment: Speci men Type: BLOOD SPECIMENOrdering Facility: [facility] Address: [address] [place] [address] Performed By: #### 5 8410-2 ####[facility] LABORATORYCLIA [id number] [address] Hematocrit (Bld) [Volume fraction] 29.0 % Low 39.0-51.0 [facility] Comment on above: Order Comment: Speci men Type: BLOOD SPECIMENOrdering Facility: [facility] Address: [address] [place] [address] Performed By: #### 5 8410-2 ####[facility] LABORATORYCLIA [id number] [address] Hemoglobin (Bld) [Mass/Vol] 8.8 g/dL Low 13.0-17.0 [facility] Comment on above: Order Comment: Speci men Type: BLOOD SPECIMENOrdering Facility: [facility] Address: [address] [place] [address] Performed By: #### 5 8410-2 ####[facility]ORATORYCLIA [id number] [address] MCH (RBC) [Entitic mass] 27.0 pg Normal 26.0-34.0 [facility] Comment on above: Order Comment: Speci men Type: BLOOD SPECIMENOrdering Facility: [facility] Address: [address] [place] [address] Performed By: #### 5 8410-2 ####[facility]ORATORYCLIA [id number] [address] [place] MCHC (RBC) [Mass/Vol] 30.3 g/dL Low 30.5-36.0 [facility] Comment on above: Order Comment: Speci men Type: BLOOD SPECIMENOrdering Facility: [facility] Address: [address] [place] [address] Performed By: #### 5 8410-2 ####[facility]ORATORYCLIA [id number] [address] MCV (RBC) [Entitic vol] 89.0 fL Normal 80.0-100.0 [facility] Comment on above: Order Comment: Speci men Type: BLOOD SPECIMENOrdering Facility: [facility] Address: [address] [address] Performed By: #### 5 8410-2 ####[facility]ORATORYCLIA [id number] [address] [place] Nucleated RBC (Bld) [#/Vol] 10*3/uL Normal <0.01 [facility] Comment on above: Order Comment: Speci men Type: BLOOD SPECIMENOrdering Facility: [facility] Address: [address] [place] [address] Performed By: #### 5 8410-2 ####[facility]ORATORYCLIA [id number] [address] OF [facility] Platelet mean volume (Bld) [Entitic vol] 9.8 fL Normal 9.0-12.7 [facility] Comment on above: Order Comment: Speci men Type: BLOOD SPECIMENOrdering Facility: [facility] Address: [address] [place] [address] Performed By: #### 5 8410-2 ####[facility]ORATORYCLIA [id number] [address] Platelets (Bld) [#/Vol] 281 10*3/uL Normal 150-400 [facility] Comment on above: Order Comment: Speci men Type: BLOOD SPECIMENOrdering Facility: [facility] Address: [address] [address] Performed By: #### 5 8410-2 ####[facility]ORATORYCLIA [id number] [address] [place] RBC (Bld) [#/Vol] 3.26 10*6/uL Low 4.20-6.00 [facility] Comment on above: Order Comment: Speci men Type: BLOOD SPECIMENOrdering Facility: [facility] Address: [address] [place], [place] [id number] Performed By: #### 5 8410-2 ####[facility] LABORATORYCLIA [id number] [place] [address] [place] WBC (Bld) [#/Vol] 9.12 10*3/uL Normal 3.70-11.00 [facility] Comment on above: Order Comment: Speci men Type: BLOOD SPECIMENOrdering Facility: [facility] Address: [address] [place] [place] [address] Performed By: #### 5 8410-2 ####[facility] LABORATORYCLIA [id number] [address] OF [facility] CONSULT PROGon 07-09-2021 CONSULT PROG Normal [facility] CONSULT PROG Normal [facility] HISTORY PHYSICALon HISTORY PHYSICAL Normal [facility] Magnesium SerPl-mCncon 07-09 Magnesium [Mass/Vol] 1.9 mg/dL Normal 1.7-2.3 [facility] Comment on above: Order Comment: Speci men Type: BLOOD SPECIMENOrdering Facility: [facility] Address: [address] [place] [address] Performed By: #### 1 9123-9, 2777-1, 36631-9 ####[facility]ORATORYCLIA [id number] [address] [place] Phosphate SerPl-mCncon 07-09 Phosphate [Mass/Vol] 3.6 mg/dL Normal 2.7-4.8 [facility] Comment on above: Order Comment: Speci men Type: BLOOD SPECIMENOrdering Facility: [facility] Address: [address] [place] [address] Performed By: #### 1 9123-9, 2777-1, 05297-3 ####[facility] LABORATORYCLIA [id number] [address] [place] THERAPY NTon 07-09-2021 THERAPY NT Normal [facility] XR ABDOMEN 1V SUPINEon 07-09 XR ABDOMEN 1V SUPINE Normal [facility] ALLIED HEALTHon 07-08-2021 ALLIED HEALTH Normal [facility] ALLIED HEALTH Normal [facility] ALLIED HEALTH Normal [facility] ANES PRE-OPon 07-08-2021 ANES PRE-OP Normal [facility] BRIEF OP NOTon 07-08-2021 BRIEF OP NOT Normal [facility] Bacteria Bld Culton 07-09-19 22 Bacteria identified Cx Nom (Bld) CULTURE, BLOOD: No growth 5 days Normal [facility] Comment on above: Performed By: #### 6 00-7 ####[facility] LABORATORYCLIA [id number] [address] [place] [facility] Bacteria identified Cx Nom (Bld) CULTURE, BLOOD: No growth 5 days Normal [facility] Comment on above: Performed By: #### 6 00-7 ####[facility]ORATORYCLIA [id number] [address] [place] [facility] Bacteria CSF Culton 07-09-19 22 Bacteria identified Cx Nom (CSF) CULTURE, CSF: No growth 14 days GRAM STAIN: No organisms seen No Polymorphonuclear Leukocytes Few Red Blood Cells Gram stain performed on cytospun specimen. Normal [facility] Comment on above: Performed By: #### 6 06-4 ####[facility]ORATORYCLIA [id number] [address] [place] Bacteria Ur Culton 2 Bacteria identified Cx Nom (U) ORGANISM ID: 1 10,000 -<50,000 CFU/ml Proteus species Insignificant colony count. No further workup. ORGANISM ID: 2 <10,000 CFU/ml Normal urogenital chris Normal [facility] Comment on above: Performed By: #### 6 30-4 ####[facility]ORATORYCLIA [id number] [address] [place] Bacteria Wnd Culton 07-09-19 22 Bacteria identified Cx Nom (Wound) ORGANISM ID: 1 Coagulase negative staphylococcus Growth in Enrichment Broth Only No susceptibility testing done. Call lab within 72 hours to initiate work-up if clinically indicated. GRAM STAIN: Account credited. Not performed on this specimen type. Normal [facility] Comment on above: Performed By: #### 6 462-6 ####[facility]ORATORYCLIA [id number] [address] Bacteria identified Cx Nom (Wound) ORGANISM ID: 1 Rare Coagulase negative staphylococcus No susceptibility testing done. Call lab within 72 hours to initiate work-up if clinically indicated. GRAM STAIN: Account credited. Not performed on this specimen type. [facility] Comment on above: Performed By: #### 6 462-6 ####[facility]ORATORYCLIA [id number] [address] Bacteria identified Cx Nom (Wound) CULTURE, INTRAOPERATIVE HARDWARE: No growth 14 days GRAM STAIN: Account credited. Not performed on this specimen type. [facility] Comment on above: Performed By: #### 6 462-6 ####[facility]ORATORYCLIA [id number] [address] [place] [facility] Basic metabolic 2000 panelon 07-08-2021 Anion gap [Moles/Vol] 9 mmol/L Normal 9-18 [facility] Comment on above: Order Comment: Speci men Type: BLOOD SPECIMENOrdering Facility: [facility] Address: [address] [place] [address] Performed By: #### 2 4321-2 ####[facility] LABORATORYCLIA [id number] [address] STATES [facility] Calcium [Mass/Vol] 8.5 mg/dL Normal 8.5-10.2 [facility] Comment on above: Order Comment: Speci men Type: BLOOD SPECIMENOrdering Facility: [facility] Address: [address] [address] Performed By: #### 2 4321-2 ####[facility]ORATORYCLIA [id number] [address] Chloride [Moles/Vol] 98 mmol/L Normal 97-105 [facility] Comment on above: Order Comment: Speci men Type: BLOOD SPECIMENOrdering Facility: [facility] Address: [address] [place] [address] Performed By: #### 2 4321-2 ####[facility] LABORATORYCLIA [id number] [place] [address] [place] CO2 [Moles/Vol] 31 mmol/L High 22-30 [facility] Comment on above: Order Comment: Speci men Type: BLOOD SPECIMENOrdering Facility: [facility] Address: [address] [place] [address] Performed By: #### 2 4321-2 ####[facility] LABORATORYCLIA [id number] [address] [place] [facility] Creatinine [Mass/Vol] 0.64 mg/dL Low 0.73-1.22 [facility] Comment on above: Order Comment: Speci men Type: BLOOD SPECIMENOrdering Facility: [facility] Address: [address] [place] [address] Performed By: #### 2 4321-2 ####[facility]ITALCL[facility] [id number] [address] ESTIMATED GLOMERULAR FILTRATION RATE 102 mL/min/1.73m??? Normal >=60 [facility] Comment on above: Order Comment: Speci men Type: BLOOD SPECIMENOrdering Facility: [facility] Address: [address] [place] [address] Result Comment: Luzmaria mated Glomerular Filtration Rate (eGFR) is calculated using the 2020 CKD-EPI creatinine equation. This equation utilizes serum creatinine, sex, and age as parameters. The creatinine assay has traceable calibration to isotope dilution-mass spectrometry. Refer to KDIGO guidelines for clinical interpretation. In patients with unstable renal function, e.g. those with acute kidney injury, the eGFR may not accurately reflect actual GFR. Performed By: #### 2 4321-2 ####[facility] LABORATORYCLIA [id number] [address] [place] Glucose [Mass/Vol] 114 mg/dL High 74-99 [facility] Comment on above: Order Comment: Speci men Type: BLOOD SPECIMENOrdering Facility: [facility] Address: [address] [address] Result Comment: The [place] Diabetes [employer] (ADA) provides guidance for cutoff values for fasting glucose and random glucose. The ADA defines fasting as no caloric intake for at least 8 hours. Fasting plasma glucose results between 100 to 125 mg/dL indicate increased risk for diabetes (prediabetes).Fasting plasma glucose results greater than or equal to 126 mg/dL meet the criteria for diagnosis of diabetes. In the absence of unequivocal hyperglycemia, results should be confirmed by repeat testing. In a patient with classic symptoms of hyperglycemia or hyperglycemic crisis, random plasma glucose results greater than or equal to 200 mg/dL meet the criteria for diagnosis of diabetes.Reference: Standards of Medical Care in Diabetes 2016, [place] [employer]. Diabetes Care. 2016.39(Suppl 1). Performed By: #### 2 4321-2 ####[facility] LABORATORYCLIA [id number] [place] [address] [place] Potassium [Moles/Vol] 3.4 mmol/L Low 3.7-5.1 [facility] Comment on above: Order Comment: Speci men Type: BLOOD SPECIMENOrdering Facility: [facility] Address: [address] [address] Performed By: #### 2 4321-2 ####[facility] LABORATORYCLIA [id number] [place] [address] [place] Sodium [Moles/Vol] 138 mmol/L Normal 136-144 [facility] Comment on above: Order Comment: Speci men Type: BLOOD SPECIMENOrdering Facility: [facility] Address: [address] [address] Performed By: #### 2 4321-2 ####[facility] LABORATORYCLIA [id number] [place] [address] [place] Urea nitrogen [Mass/Vol] 14 mg/dL Normal 9-24 [facility] Comment on above: Order Comment: Speci men Type: BLOOD SPECIMENOrdering Facility: [facility] Address: [address] [address] Performed By: #### 2 4321-2 ####[facility]ORATORYCLIA [id number] [place] [address] [place] CBC W Auto Differential pane l (Bld)on 07-08-2021 Basophils (Bld) [#/Vol] 0.05 10*3/uL Normal <0.11 [facility] Comment on above: Order Comment: Speci men Type: BLOOD SPECIMENOrdering Facility: [facility] Address: [address] [place] [address] Performed By: #### 5 7021-8 ####[facility] LABORATORYCLIA [id number] [address] STATES [facility] Basophils/100 WBC (Bld) 0.4 % Normal [facility] Comment on above: Order Comment: Speci men Type: BLOOD SPECIMENOrdering Facility: [facility] Address: [address] [place] [address] Performed By: #### 5 7021-8 ####[facility]ORATORYCLIA [id number] [address] [place] [facility] Differential cell count method Nom (Bld) Auto Normal [facility] Comment on above: Order Comment: Speci men Type: BLOOD SPECIMENOrdering Facility: [facility] Address: [address] [place] [address] Performed By: #### 5 7021-8 ####[facility] LABORATORYCLIA [id number] [place] [address] [place] Eosinophils (Bld) [#/Vol] 0.68 10*3/uL High <0.46 [facility] Comment on above: Order Comment: Speci men Type: BLOOD SPECIMENOrdering Facility: [facility] Address: [address] [place] [address] Performed By: #### 5 7021-8 ####[facility]ORATORYCLIA [id number] [address] [place] Eosinophils/100 WBC (Bld) 5.4 % Normal [facility] Comment on above: Order Comment: Speci men Type: BLOOD SPECIMENOrdering Facility: [facility] Address: [address] [place] [address] Performed By: #### 5 7021-8 ####[facility] LABORATORYCLIA [id number] [address] Erythrocyte distribution width (RBC) [Ratio] 16.3 % High 11.5-15.0 [facility] Comment on above: Order Comment: Speci men Type: BLOOD SPECIMENOrdering Facility: [facility] Address: [address] [place] [address] Performed By: #### 5 7021-8 ####[facility] LABORATORYCLIA [id number] [address] Hematocrit (Bld) [Volume fraction] 35.7 % Low 39.0-51.0 [facility] Comment on above: Order Comment: Speci men Type: BLOOD SPECIMENOrdering Facility: [facility] Address: [address] [place] [address] Performed By: #### 5 7021-8 ####[facility] LABORATORYCLIA [id number] [address] Hemoglobin (Bld) [Mass/Vol] 10.8 g/dL Low 13.0-17.0 [facility] Comment on above: Order Comment: Speci men Type: BLOOD SPECIMENOrdering Facility: [facility] Address: [address] [place] [address] Performed By: #### 5 7021-8 ####[facility] LABORATORYCLIA [id number] [address] IMMATURE GRAN % 0.4 % Normal [facility] Comment on above: Order Comment: Speci men Type: BLOOD SPECIMENOrdering Facility: [facility] Address: [address] [place] [address] Performed By: #### 5 7021-8 ####[facility] LABORATORYCLIA [id number] [address] IMMATURE GRAN ABS 0.05 k/uL Normal <0.10 [facility] Comment on above: Order Comment: Speci men Type: BLOOD SPECIMENOrdering Facility: [facility] Address: [address] [place] [address] Performed By: #### 5 7021-8 ####[facility] LABORATORYCLIA [id number] [address] OF [facility] Lymphocytes (Bld) [#/Vol] 1.85 10*3/uL Normal 1.00-4.00 [facility] Comment on above: Order Comment: Speci men Type: BLOOD SPECIMENOrdering Facility: [facility] Address: [address] [place] [address] Performed By: #### 5 7021-8 ####[facility] LABORATORYCLIA [id number] [address] Lymphocytes/100 WBC (Bld) 14.7 % Normal [facility] Comment on above: Order Comment: Speci men Type: BLOOD SPECIMENOrdering Facility: [facility] Address: [address] [place] [address] Performed By: #### 5 7021-8 ####[facility] LABORATORYCLIA [id number] [address] STATES [facility] MCH (RBC) [Entitic mass] 27.1 pg Normal 26.0-34.0 [facility] Comment on above: Order Comment: Speci men Type: BLOOD SPECIMENOrdering Facility: [facility] Address: [address] [place] [address] Performed By: #### 5 7021-8 ####[facility] LABORATORYCLIA [id number] [address] STATES [place] [facility] MCHC (RBC) [Mass/Vol] 30.3 g/dL Low 30.5-36.0 [facility] Comment on above: Order Comment: Speci men Type: BLOOD SPECIMENOrdering Facility: [facility] Address: [address] [place] [address] Performed By: #### 5 7021-8 ####[facility] LABORATORYCLIA [id number] [place] [address] [place] MCV (RBC) [Entitic vol] 89.7 fL Normal 80.0-100.0 [facility] Comment on above: Order Comment: Speci men Type: BLOOD SPECIMENOrdering Facility: [facility] Address: [address] [place] [address] Performed By: #### 5 7021-8 ####[facility] LABORATORYCLIA [id number] [place] [address] [place] Monocytes (Bld) [#/Vol] 0.87 10*3/uL High <0.87 [facility] Comment on above: Order Comment: Speci men Type: BLOOD SPECIMENOrdering Facility: [facility] Address: [address] [place] [address] Performed By: #### 5 7021-8 ####[facility] LABORATORYCLIA [id number] [address] [place] Monocytes/100 WBC (Bld) 6.9 % Normal [facility] Comment on above: Order Comment: Speci men Type: BLOOD SPECIMENOrdering Facility: [facility] Address: [address] [place] [address] Performed By: #### 5 7021-8 ####[facility] LABORATORYCLIA [id number] [place] [address] [place] Neutrophils (Bld) [#/Vol] 9.05 10*3/uL High 1.45-7.50 [facility] Comment on above: Order Comment: Speci men Type: BLOOD SPECIMENOrdering Facility: [facility] Address: [address] [place] [address] Performed By: #### 5 7021-8 ####[facility] LABORATORYCLIA [id number] [address] [place] Neutrophils/100 WBC (Bld) 72.2 % Normal [facility] Comment on above: Order Comment: Speci men Type: BLOOD SPECIMENOrdering Facility: [facility] Address: [address] [place] [address] Performed By: #### 5 7021-8 ####[facility] LABORATORYCLIA [id number] [address] Nucleated RBC (Bld) [#/Vol] 10*3/uL Normal <0.01 [facility] Comment on above: Order Comment: Speci men Type: BLOOD SPECIMENOrdering Facility: [facility] Address: [address] [place] [address] Performed By: #### 5 7021-8 ####[facility] LABORATORYCLIA [id number] [address] Nucleated RBC/100 WBC (Bld) [Ratio] 0.0 /100 WBC Normal [facility] Comment on above: Order Comment: Speci men Type: BLOOD SPECIMENOrdering Facility: [facility] Address: [address] [place] [address] Performed By: #### 5 7021-8 ####[facility] LABORATORYCLIA [id number] [address] Platelet mean volume (Bld) [Entitic vol] 9.9 fL Normal 9.0-12.7 [facility] Comment on above: Order Comment: Speci men Type: BLOOD SPECIMENOrdering Facility: [facility] Address: [address] [place] [address] Performed By: #### 5 7021-8 ####[facility] LABORATORYCLIA [id number] [address] Platelets (Bld) [#/Vol] 335 10*3/uL Normal 150-400 [facility] Comment on above: Order Comment: Speci men Type: BLOOD SPECIMENOrdering Facility: [facility] Address: [address] [place] [address] Performed By: #### 5 7021-8 ####[facility] LABORATORYCLIA [id number] [address] [place] RBC (Bld) [#/Vol] 3.98 10*6/uL Low 4.20-6.00 [facility] Comment on above: Order Comment: Speci men Type: BLOOD SPECIMENOrdering Facility: [facility] Address: [address] [place] [address] Performed By: #### 5 7021-8 ####[facility] LABORATORYCLIA [id number] [place] [address] [place] WBC (Bld) [#/Vol] 12.55 10*3/uL High 3.70-11.00 [facility] Comment on above: Order Comment: Speci men Type: BLOOD SPECIMENOrdering Facility: [facility] Address: [address] [place] [address] Performed By: #### 5 7021-8 ####[facility] LABORATORYCLIA [id number] [address] [place] CK CREATINE KINASEon 022 CK [Catalytic activity/Vol] 72 U/L Normal 51-298 [facility] Comment on above: Order Comment: Speci men Type: BLOOD SPECIMENOrdering Facility: [facility] Address: [address] [place] [address] Performed By: #### C K, 46492-9 ####[facility] LABORATORYCLIA [id number] [address] [place] CONSULT PROGon 07-08-2021 CONSULT PROG Normal [facility] CONSULT PROG Normal [facility] CSF MANUAL DIFFon 07-08-2021 DIF TTL, CSF 3 cells counted Normal [facility] Comment on above: Order Comment: Speci men Type: CEREBROSPINAL FLUIDOrdering Facility: [facility] Address: [address] [place] [address] Performed By: #### 3 4563-7, [id number] ####[facility] LABORATORYCLIA [id number] [place] [address] [place] LYMPH%, CSF 33 % Low 50-90 [facility] Comment on above: Order Comment: Speci men Type: CEREBROSPINAL FLUIDOrdering Facility: [facility] Address: [address] [address] Performed By: #### 3 4563-7, [id number] ####[facility] LABORATORYCLIA [id number] [place] [address] [place] MONO%, CSF 67 % High 10-50 [facility] Comment on above: Order Comment: Speci men Type: CEREBROSPINAL FLUIDOrdering Facility: [facility] Address: [address] [place] [address] Performed By: #### 3 4563-7, [id number] ####[facility]ATORYCLIA [id number] [address] [place] CT ABD/PEL W IVCONon 022 CT ABD/PEL W IVCON Normal [facility] CT BRAIN WO IVCONon 07-09-[address] BRAIN WO IVCON Normal [facility] CT BRAIN WO IVCON Normal [facility] CT CHEST W IVCON PEon 2021 CT CHEST W IVCON PE Normal [facility] Cell count panel (CSF)on Clarity (CSF) Clear Normal Clear [facility] Comment on above: Order Comment: Speci men Type: CEREBROSPINAL FLUIDOrdering Facility: [facility] Address: [address] [place] [address] Performed By: #### 3 4563-7, [id number] ####[facility]ATORYCLIA [id number] [address] [place] Clarity (Unsp spec) Clear Normal Clear [facility] Comment on above: Order Comment: Speci men Type: CEREBROSPINAL FLUIDOrdering Facility: [facility] Address: [address] [place] [address] Performed By: #### 3 4563-7, [id number] ####[facility]ATORYCLIA [id number] [address] [place] Color (CSF) Colorless Normal Colorless [facility] Comment on above: Order Comment: Speci men Type: CEREBROSPINAL FLUIDOrdering Facility: [facility] Address: [address] [place] [address] Performed By: #### 3 4563-7, [id number] ####[facility]ATORYCLIA [id number] [address] Color (Spun CSF) Colorless Normal Colorless [facility] Comment on above: Order Comment: Speci men Type: CEREBROSPINAL FLUIDOrdering Facility: [facility] Address: [address] [place] [address] Performed By: #### 3 4563-7, [id number] ####[facility]ATORYCLIA [id number] [address] CSF [employer] Normal [facility] Comment on above: Order Comment: Speci men Type: CEREBROSPINAL FLUIDOrdering Facility: [facility] Address: [address] [place] [address] Performed By: #### 3 4563-7, [id number] ####[facility] LABORATORYCLIA [id number] [address] RBC Manual cnt (CSF) [#/Vol] 94 cells/uL High 0-5 [facility] Comment on above: Order Comment: Speci men Type: CEREBROSPINAL FLUIDOrdering Facility: [facility] Address: [address] [place] [address] Performed By: #### 3 4563-7, [id number] ####[facility]ATORYCLIA [id number] [address] WBC Manual cnt (CSF) [#/Vol] 1 cells/uL Normal 0-5 [facility] Comment on above: Order Comment: Speci men Type: CEREBROSPINAL FLUIDOrdering Facility: [facility] Address: [address] [place] [address] Performed By: #### 3 4563-7, [id number] ####[facility]ATORYCLIA [id number] [address] [place] Comprehensive metabolic 2000 panelon 07-08-2021 Albumin [Mass/Vol] 3.6 g/dL Low 3.9-4.9 [facility] Comment on above: Order Comment: Speci men Type: BLOOD SPECIMENOrdering Facility: [facility] Address: [address] [place] [address] Performed By: #### Eileen Valdivia, 94639-5 ####[facility] LABORATORYCLIA [id number] [address] ALP [Catalytic activity/Vol] 125 U/L High 38-113 [facility] Comment on above: Order Comment: Speci men Type: BLOOD SPECIMENOrdering Facility: [facility] Address: [address] [place] [address] Performed By: #### Eileen Valdivia, 10854-5 ####[facility] LABORATORYCLIA [id number] [address] [facility] ALT With P-5'-P [Catalytic activity/Vol] 24 U/L Normal 10-54 [facility] Comment on above: Order Comment: Speci men Type: BLOOD SPECIMENOrdering Facility: [facility] Address: [address] [place] [address] Performed By: #### Eileen Valdivia, 08781-8 ####[facility] LABORATORYCLIA [id number] [address] Anion gap [Moles/Vol] 16 mmol/L Normal 9-18 [facility] Comment on above: Order Comment: Speci men Type: BLOOD SPECIMENOrdering Facility: [facility] Address: [address] [address] Performed By: #### Eileen Valdivia, 92545-7 ####[facility] LABORATORYCLIA [id number] [address] AST With P-5'-P [Catalytic activity/Vol] 21 U/L Normal 14-40 [facility] Comment on above: Order Comment: Speci men Type: BLOOD SPECIMENOrdering Facility: [facility] Address: [address] [place] [address] Performed By: #### Eileen Valdivia, 86456-2 ####[facility]ORATORYCLIA [id number] [place] [address] [place] Bilirubin [Mass/Vol] 0.3 mg/dL Normal 0.2-1.3 [facility] Comment on above: Order Comment: Speci men Type: BLOOD SPECIMENOrdering Facility: [facility] Address: [address] [place] [address] Performed By: #### Eileen Valdivia, 36963-7 ####[facility]ATORYCLIA [id number] [place] [address] [place] Calcium [Mass/Vol] 8.9 mg/dL Normal 8.5-10.2 [facility] Comment on above: Order Comment: Speci men Type: BLOOD SPECIMENOrdering Facility: [facility] Address: [address] [place] [address] Performed By: #### Eileen Valdivia, 14918-3 ####[facility] LABORATORYCLIA [id number] [place] [address] [place] Chloride [Moles/Vol] 96 mmol/L Low 97-105 [facility] Comment on above: Order Comment: Speci men Type: BLOOD SPECIMENOrdering Facility: [facility] Address: [address] [place] [address] Performed By: #### Eileen Valdivia, 27582-3 ####[facility]ATORYCLIA [id number] [place] [address] [place] CO2 [Moles/Vol] 27 mmol/L Normal 22-30 [facility] Comment on above: Order Comment: Speci men Type: BLOOD SPECIMENOrdering Facility: [facility] Address: [address] [place] [address] Performed By: #### Eileen Valdivia, 94532-2 ####[facility]ATORYCLIA [id number] [place] [address] [place] Creatinine [Mass/Vol] 0.68 mg/dL Low 0.73-1.22 [facility] Comment on above: Order Comment: Speci men Type: BLOOD SPECIMENOrdering Facility: [facility] Address: [address] [place] [address] Performed By: #### Eileen Valdivia, 62738-9 ####[facility]PITALIA [id number] [address] ESTIMATED GLOMERULAR FILTRATION RATE 101 mL/min/1.73m??? Normal >=60 [facility] Comment on above: Order Comment: Johncara francia Type: BLOOD SPECIMENOrdering Facility: [facility] Address: [address] [place] [address] Result Comment: Luzmaria mated Glomerular Filtration Rate (eGFR) is calculated using the 2020 CKD-EPI creatinine equation. This equation utilizes serum creatinine, sex, and age as parameters. The creatinine assay has traceable calibration to isotope dilution-mass spectrometry. Refer to KDIGO guidelines for clinical interpretation. In patients with unstable renal function, e.g. those with acute kidney injury, the eGFR may not accurately reflect actual GFR. Performed By: #### Eileen Valdivia, 12303-1 ####[facility] HOSPITALIA [id number] [address] [place] Glucose [Mass/Vol] 130 mg/dL High 74-99 [facility] Comment on above: Order Comment: Johncara francia Type: BLOOD SPECIMENOrdering Facility: [facility] Address: [address] [place] [address] Result Comment: The [place] Diabetes Association (ADA) provides guidance for cutoff values for fasting glucose and random glucose. The ADA defines fasting as no caloric intake for at least 8 hours. Fasting plasma glucose results between 100 to 125 mg/dL indicate increased risk for diabetes (prediabetes).Fasting plasma glucose results greater than or equal to 126 mg/dL meet the criteria for diagnosis of diabetes. In the absence of unequivocal hyperglycemia, results should be confirmed by repeat testing. In a patient with classic symptoms of hyperglycemia or hyperglycemic crisis, random plasma glucose results greater than or equal to 200 mg/dL meet the criteria for diagnosis of diabetes.Reference: Standards of Medical Care in Diabetes 2016, [place] [employer] Association. Diabetes Care. 2016.39(Suppl 1). Performed By: #### Eileen Valdivia, 88881-5 ####[facility]ATORYCLIA [id number] [address] [place] [facility] Potassium [Moles/Vol] 3.9 mmol/L Normal 3.7-5.1 [facility] Comment on above: Order Comment: Speci men Type: BLOOD SPECIMENOrdering Facility: [facility] Address: [address] [place] [address] Performed By: #### C Skip, 34821-8 ####[facility] LABORATORYCLIA [id number] [address] [facility] Protein [Mass/Vol] 7.0 g/dL Normal 6.3-8.0 [facility] Comment on above: Order Comment: Speci men Type: BLOOD SPECIMENOrdering Facility: [facility] Address: [address] [place] [address] Performed By: #### Eileen Valdivia, 55929-0 ####[facility] LABORATORYCLIA [id number] [address] Sodium [Moles/Vol] 139 mmol/L Normal 136-144 [facility] Comment on above: Order Comment: Speci men Type: BLOOD SPECIMENOrdering Facility: [facility] Address: [address] [place] [address] Performed By: #### C Skip, 63643-1 ####[facility]ATORYCLIA [id number] [address] STATES [facility] Urea nitrogen [Mass/Vol] 16 mg/dL Normal 9-24 [facility] Comment on above: Order Comment: Speci men Type: BLOOD SPECIMENOrdering Facility: [facility] Address: [address] [place] [address] Performed By: #### C Skip, 38148-4 ####[facility] LABORATORYCLIA [id number] [address] ED NOTEon 07-08-2021 ED NOTE HNO ID: [id number] Author: Lenora James RN Service: Emergency Medicine Author Type: Registered Nurse Type: ED Notes Filed: 07/08/2021 5:03 PM Note Text: Pt to OR with surgical team [facility] ED NOTE HNO ID: [id number] Author: Lenora James RN Service: Emergency Medicine Author Type: Registered Nurse Type: ED Notes Filed: 07/08/2021 4:50 PM Note Text: OR team to get pt [facility] ED NOTE HNO ID: [id number] Author: Lenora James RN Service: Emergency Medicine Author Type: Registered Nurse Type: ED Notes Filed: 07/08/2021 4:50 PM Note Text: Normal [facility] ED NOTE HNO ID: [id number] Author: Lenora James RN Service: Emergency Medicine Author Type: Registered Nurse Type: ED Notes Filed: 07/08/2021 4:50 PM Note Text: Spoke with presurg; pt to go to OR now [facility] ED NOTE HNO ID: [id number] Author: Lenora James RN Service: Emergency Medicine Author Type: Registered Nurse Type: ED Notes Filed: 07/08/2021 4:12 PM Note Text: Neurosurgery at beside [facility] ED NOTE HNO ID: [id number] Author: Lenora James RN Service: Emergency Medicine Author Type: Registered Nurse Type: ED Notes Filed: 07/08/2021 2:35 PM Note Text: respiratory aware of pt breathing treatments [facility] ED NOTE HNO ID: [id number] Author: Lisa Woo RN Service: ? Author Type: Registered Nurse Type: ED Notes Filed: 07/08/2021 2:20 PM Note Text: Xray notified pt is ready. [facility] ED NOTE HNO ID: [id number] Author: Lenora James RN Service: Emergency Medicine Author Type: Registered Nurse Type: ED Notes Filed: 07/08/2021 12:14 PM Note Text: CT notified regarding imaging orders placed [facility] ED NOTE Normal [facility] ED PROV NOTEon 07-08-2021 ED PROV NOTE Normal [facility] Glucose CSF-mCncon Glucose (CSF) [Mass/Vol] 88 mg/dL High 40-70 [facility] Comment on above: Order Comment: Shira feldman Type: CEREBROSPINAL FLUIDOrdering Facility: [facility] Address: [address] [place] [address] Result Comment: Lumb ar CSF glucose values of healthy patients are approximately 60% of the plasma values and must always be compared with a concurrently measured plasma value for adequate clinical interpretation.References: 1. Glucose HK (GLUC3) [package insert V 12.0 [place]]. [employer], [place], [place]. September 2015. 2. Michelle Moore, Loki HGarfield (2015). Chapter 7: Glucose and Lactate. F. Irina rose al.(eds.), Cerebrospinal Fluid in Clinical Neurology. [place]: [place]. Performed By: #### 2 880-3, 2342-4 ####[facility] LABORATORYCLIA [id number] [address] [place] [facility] HIGH SENSITIVITY TROPONIN To n 07-08-2021 HIGH SENSITIVITY TAMIKO 27 ng/L High <12 [facility] Comment on above: Order Comment: Shira feldman Type: BLOOD SPECIMENOrdering Facility: [facility] Address: [address] [place] [address] Result Comment: When assessing risk for acute coronary syndromes: In patients undergoing blood draw greater than or equal to 2 hours from symptom onset, with history of very low to moderate risk and non-ischemic ECG, an initial hs-Troponin T less than 12 ng/L AND a 1 hour delta hs-Troponin T less than 3 ng/L should be considered very low risk for 30 day MACE. Performed By: #### H STNT ####[facility] LABORATORYCLIA [id number] [address] HIGH SENSITIVITY TAMIKO 36 ng/L High <12 [facility] Comment on above: Order Comment: Shira rfancia Type: BLOOD SPECIMENOrdering Facility: [facility] Address: [address] [address] Result Comment: When assessing risk for acute coronary syndromes: In patients undergoing blood draw greater than or equal to 2 hours from symptom onset, with history of very low to moderate risk and non-ischemic ECG, an initial hs-Troponin T less than 12 ng/L AND a 1 hour delta hs-Troponin T less than 3 ng/L should be considered very low risk for 30 day MACE. Performed By: #### H STNT ####[facility] LABORATORYCLIA [id number] [address] [place] HISTORY PHYSICALon 2 HISTORY PHYSICAL Normal [facility] NURSING PROGon 07-08-2021 NURSING PROG Normal [facility] OPERATIVE NOon 07-08-2021 OPERATIVE NO Normal [facility] Prot CSF-mCncon 07-08-2021 Protein (CSF) [Mass/Vol] 33 mg/dL Normal 15-45 [facility] Comment on above: Order Comment: Speci men Type: CEREBROSPINAL FLUIDOrdering Facility: [facility] Address: [address] [place] [address] Performed By: #### 2 880-3, 2342-4 ####[facility] LABORATORYCLIA [id number] [address] [place] SARS-CoV-2 RNA Resp Ql MEGAN+p robeon 07-08-2021 SARS-CoV-2 (COVID-19) RNA MEGAN+probe Ql (Resp) COVID 19 RESULT: SARS-CoV-2 (Agent of COVID-19) Not Detected by RT-PCR or equivalent method. This test has been authorized by FDA under an Emergency Use Authorization (EUA). Normal [facility] Comment on above: Performed By: #### 9 4500-6 ####[facility] LABORATORYCLIA [id number] [address] [place] STAPH AUREUS PCRon 2 S. aureus and MRSA panel MEGAN+probe (Nose) Normal Negative [facility] Comment on above: Order Comment: Speci men Type: SWAB OF INTERNAL NOSEOrdering Facility: [facility] Address: [address] [place] [address] Result Comment: Nega tive for Staphylococcus aureus by PCR.Negative for MRSA by PCR Performed By: #### S APCR ####[facility] LABORATORYCLIA [id number] [address] Urinalysis complete panel (U )on 07-08-2021 Bacteria LM.HPF (Urine sed) [#/Area] Few Abnormal None Seen [facility] Comment on above: Order Comment: Speci men Type: URINE SPECIMENOrdering Facility: [facility] Address: [address] [place] [address] Performed By: #### 2 4356-8 ####[facility] LABORATORYCLIA [id number] [address] Bilirubin Ql (U) Negative Normal Negative [facility] Comment on above: Order Comment: Speci men Type: URINE SPECIMENOrdering Facility: [facility] Address: [address] [place] [address] Performed By: #### 2 4356-8 ####[facility] LABORATORYCLIA [id number] [address] Clarity (Unsp spec) Turbid Abnormal Clear [facility] Comment on above: Order Comment: Speci men Type: URINE SPECIMENOrdering Facility: [facility] Address: [address] [place] [address] Performed By: #### 2 4356-8 ####[facility] LABORATORYCLIA [id number] [address] Color (U) Light Yellow Normal yellow [facility] Comment on above: Order Comment: Speci men Type: URINE SPECIMENOrdering Facility: [facility] Address: [address] [place] [address] Performed By: #### 2 4356-8 ####[facility] LABORATORYCLIA [id number] [address] Glucose Test strip (U) [Mass/Vol] Negative Normal Negative [facility] Comment on above: Order Comment: Speci men Type: URINE SPECIMENOrdering Facility: [facility] Address: [address] [place] [address] Performed By: #### 2 4356-8 ####[facility] LABORATORYCLIA [id number] [address] Hemoglobin Ql (U) Negative Normal Negative [facility] Comment on above: Order Comment: Speci men Type: URINE SPECIMENOrdering Facility: [facility] Address: [address] [place] [address] Performed By: #### 2 4356-8 ####[facility] LABORATORYCLIA [id number] [address] [place] Hyaline casts (Urine sed) [#/Area] 1-3 /LPF Abnormal 0 /LPF [facility] Comment on above: Order Comment: Speci men Type: URINE SPECIMENOrdering Facility: [facility] Address: [address] [place] [address] Performed By: #### 2 4356-8 ####[facility] LABORATORYCLIA [id number] [address] STATES [facility] Ketones Ql (U) Negative Normal Negative [facility] Comment on above: Order Comment: Speci men Type: URINE SPECIMENOrdering Facility: [facility] Address: [address] [place] [address] Performed By: #### 2 4356-8 ####[facility] LABORATORYCLIA [id number] [address] Leukocyte esterase Test strip Ql (U) Negative Normal Negative [facility] Comment on above: Order Comment: Speci men Type: URINE SPECIMENOrdering Facility: [facility] Address: [address] [place] [address] Performed By: #### 2 4356-8 ####[facility] LABORATORYCLIA [id number] [address] [place] Nitrite Ql (U) Negative Normal Negative [facility] Comment on above: Order Comment: Speci men Type: URINE SPECIMENOrdering Facility: [facility] Address: [address] [place] [address] Performed By: #### 2 4356-8 ####[facility] LABORATORYCLIA [id number] [address] pH (U) 5.0 [pH] Normal 5.0-8.0 [facility] Comment on above: Order Comment: Speci men Type: URINE SPECIMENOrdering Facility: [facility] Address: [address] [place] [address] Performed By: #### 2 4356-8 ####[facility] LABORATORYCLIA [id number] [address] Protein (U) [Mass/Vol] Negative Normal Negative [facility] Comment on above: Order Comment: Speci men Type: URINE SPECIMENOrdering Facility: [facility] Address: [address] [place] [address] Performed By: #### 2 4356-8 ####[facility] [id number] [address] [place] RBC LM.HPF (Urine sed) [#/Area] 11-25 /HPF Abnormal 0-3 /HPF [facility] Comment on above: Order Comment: Speci men Type: URINE SPECIMENOrdering Facility: [facility] Address: [address] [place] [address] Performed By: #### 2 4356-8 ####[facility] LABORATORYCLIA [id number] [address] Specific gravity (U) [Rel density] 1.018 Normal 1.005-1.030 [facility] Comment on above: Order Comment: Speci men Type: URINE SPECIMENOrdering Facility: [facility] Address: [address] [place] [address] Performed By: #### 2 4356-8 ####[facility] LABORATORYCLIA [id number] [address] Urobilinogen Ql (U) Normal Normal Negative [facility] Comment on above: Order Comment: Speci men Type: URINE SPECIMENOrdering Facility: [facility] Address: [address] [place] [address] Performed By: #### 2 4356-8 ####[facility] LABORATORYCLIA [id number] [address] STATES [facility] WBC LM.HPF (Urine sed) [#/Area] /[HPF] Abnormal 0-5 /HPF [facility] Comment on above: Order Comment: Speci men Type: URINE SPECIMENOrdering Facility: [facility] Address: [address] [place] [address] Performed By: #### 2 4356-8 ####[facility] LABORATORYCLIA [id number] [place] [id number] [facility] [place] Vancomycin random [Mass/Vol] on 07-08-2021 Vancomycin [Mass/Vol] 31.0 ug/mL High 10.0-20.0 [facility] Comment on above: Order Comment: Speci men Type: BLOOD SPECIMENOrdering Facility: [facility] Address: [address] [place] [address] Result Comment: Refe rence ranges and high/low indicator flags are provided as general guidelines only. The treating physician must determine appropriate target levels/dosing based on the specific clinical situation. Performed By: #### 4 091-5 ####[facility] LABORATORYCLIA [id number] [address] XR ABD 2V SUPINE W UPR/DECUB /CTLon 07-08-2021 XR ABD 2V SUPINE W UPR/DECUB/CTL Normal [facility] XR CHEST 1V FRONTALon 2021 XR CHEST 1V FRONTAL Normal [facility] XR CHEST 1V FRONTAL Normal [facility] XR NECK SOFT TISSUE 2V AP/LA Ton 07-08-2021 XR NECK SOFT TISSUE 2V AP/LAT Normal [facility] XR SKULL 2V AP/LATon 022 XR SKULL 2V AP/LAT Normal [facility] HISTORY PHYSICALon HISTORY PHYSICAL HNO ID: [id number] Author: Amy Beltran MD Service: ? Author Type: Physician Type: HANDP Filed: 06/30/2021 6:42 PM Note Text: Connected Care Unit History and Physical Facility: [facility] Level of Care: Skilled Admission Date: June 28, 2021 ASSESSMENT/PLAN: 1. 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 Acute respiratory failure with hypoxia (HCC) - ICD9: 518.81, ICD10: J96.01 Stable. Continue on Oxygen NC wean as tolerated. Continue on Douneb 3. Acute saddle pulmonary embolism with acute cor pulmonale (HCC) - ICD9: 415.13, 415.0, ICD10: I26.02 On Eliques. Weekly cbc. 4. Sepsis with acute organ dysfunction, due to unspecified organism, unspecified type, unspecified whether septic shock present (HCC) - ICD9: 038.9, 995.92, ICD10: A41.9, R65.20 Secondary to retroperitoneal hematoma infection. Continue on vanc for a total of 6 wks. Pt on NG tube and tolerating full liquid diet. ST following- just upgraded pt to soft (mechanical soft) Weekly cbc. 5. Normochromic normocytic anemia - ICD9: 285.9, ICD10: D64.9 Continue on vitamin b12. Weekly cbc. 6. Debility - ICD9: 799.3, ICD10: R53.81 PT and OT following. Staff to feed. Lizz controlled on oxycodone, was on percocet. Continue on Modafinil for ROSALINO Monitor mental status. Amy Beltran Prognosis: Rehab potential: Fair I have reviewed the patient's recent hospital course and/or ED visit, including findings from pertinent diagnostic tests, discharge medications, and my assessment and plan with the patient at today?s visit, and where applicable, with other persons listed here (None). Patient discussed with nursing staff at facility: Yes Time Based Billing Statement: The majority (>50%) of this visit was spent counseling and/or coordinating care for the patient regarding the above plan. Total time spent [id number] and/or counseling and coordinating care on the skilled care unit for patient was approximately 45 minutes SUBJECTIVE (HISTORY) Chief Complaint: Confusion, infection, blood clot. Andrew Sifuentes is being seen today for fpc facility (SNF) admission AND management of weakness, tube feed, infected retroperitoneal infection and seizure. HPI: This is a 71 year old male who presents from [facility] with primary admitting diagnosis of Seizure, enteral feeding via NG tube, infected retroperitoneal hematoma and saddle PE. Past medical history is notable for Obstructive hydrocephalus, venous insufficiency, asthma, and HTN. History obtained from medical record review as well as PATIENT. Per documentation, pt presented with a fall and altered mental status. 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 Tip of SUPERVISOR POST WAVE shunt was found to be in the right axillary region. Patient was intubated and underwent EVD (external ventricular drain) .06/07 noted to have Frontal cephalematoma around EVD site, downward gazing, hypertensive, and had shunt revision, VPS placement. CT abd showing infected hematoma left retroperitoneum> GS aware and antibiotics x 2 weeks recommended; TMAX 100.4 with slight increase WBC; gen surgery was consulted and had IR guided drainage.patient was started on broad spectrum antibiotics and then kept on vancomycin for 6 weeks per INFECTIOUS DISEASE for shunt infection, growing staph saccrolyticus. He was transferred to the floor 06/14/2021 on 2L NC. 06/16/2021 developed acute hypoxic respiratory failure found secondary to saddle PE. He was intubated again in Intensive Care Unit. DVT USS showed b/l DVTs. Started on heparin drip which was changed to Apixaban. Patient transferred to floor now remains on 2 lt NC and tube feeds and full liquid diet. On evaluation today, patient seen in his room. A mildly and pleasantly confused. Unable to feed himself. ST about to evaluate pt. Highest Readmission Risk Score 43. Past Medical History: PAST MEDICAL HISTORY Diagnosis Date - Acute saddle pulmonary embolism with acute cor pulmonale (HCC) 06/15/2021 - Asthma - Contact dermatitis 06/06/2021 - Intracranial shunt - PE (pulmonary embolism) - Primary hypertension 05/31/2021 - Status epilepticus (HCC) 05/31/2021 Past Surgical History: PAST SURGICAL HISTORY Procedure Laterality Date - BRAIN SURGERY HX - IR VASCULAR ACCESS TEAM PICC INSERTION RADIO 06/09/2021 Family History: No family history on file. Marital Status: . Social History: Social History Tobacco Use - Smoking status: Never Smoker - Smokeless tobacco: Never Used Vaping Use - Vaping Use: Never used Substance Use Topics - Alcohol use: No - Drug use: Never Pre-Hospital Living Situation: alone. Functional Status: Modified independent +. Social History Social History Narrative Not on file Code Status: Fu (more content not included)... Normal [facility] Basic metabolic 2000 panelon 06-28-2021 Anion gap [Moles/Vol] 7 mmol/L Low 9-18 [facility] Comment on above: Order Comment: Speci men Type: BLOOD SPECIMENOrdering Facility: [facility] Address: [address] [place] [address] Performed By: #### 2 4320-2, ####[facility] LABORATORYCLIA [id number] [place] [address] [place] Calcium [Mass/Vol] 8.8 mg/dL Normal 8.5-10.2 [facility] Comment on above: Order Comment: Speci men Type: BLOOD SPECIMENOrdering Facility: [facility] Address: [address] [place] [address] Performed By: #### 2 4320-06, ####[facility] LABORATORYCLIA [id number] [place] [address] [place] Chloride [Moles/Vol] 103 mmol/L Normal 97-105 [facility] Comment on above: Order Comment: Speci men Type: BLOOD SPECIMENOrdering Facility: [facility] Address: [address] [place] [address] Performed By: #### 2 4320-06, ####[facility] LABORATORYCLIA [id number] [place] [address] [place] CO2 [Moles/Vol] 28 mmol/L Normal 22-30 [facility] Comment on above: Order Comment: Speci men Type: BLOOD SPECIMENOrdering Facility: [facility] Address: [address] [place] [address] Performed By: #### 2 2, ####[facility] LABORATORYCLIA [id number] [place] [address] [place] Creatinine [Mass/Vol] 0.57 mg/dL Low 0.73-1.22 [facility] Comment on above: Order Comment: Johnacra feldman Type: BLOOD SPECIMENOrdering Facility: [facility] Address: [address] [place], [place] [address] Performed By: #### 2 4321-2, ####[facility] LABORATORYCLIA [id number] [place] [address] [place] GFR/1.73 sq M.predicted MDRD (S/P/Bld) [Vol rate/Area] mL/min/{1.73_m2} Normal [facility] Comment on above: Order Comment: [facility] Type: BLOOD SPECIMENOrdering Facility: [facility] Address: [address] [place] [address] Result Comment: >60e GFR (Estimated GFR) Units of measure: mL/min/1.73 meters squaredeGFR is derived from the reexpressed MDRD Study equation using the following parameters: serum creatinine, age, gender and race. The creatinine assay has been calibrated to be traceable to IDMS. An eGFR <60 mL/min/1.73m2 for >3 months is consistent with chronic kidney disease. Refer to KDOQI guidelines for clinical interpretation. In patients with unstable renal function, e.g. those with acute kidney injury, the eGFR may not accurately reflect actual GFR. Performed By: #### 2 4321-2, ####[facility] LABORATORYCLIA [id number] [address] [place] Glucose [Mass/Vol] 120 mg/dL High 74-99 [facility] Comment on above: Order Comment: Shira francia Type: BLOOD SPECIMENOrdering Facility: [facility] Address: [address] [place], [place] [address] Result Comment: The [place] Diabetes Association (ADA) provides guidance for cutoff values for fasting glucose and random glucose. The ADA defines fasting as no caloric intake for at least 8 hours. Fasting plasma glucose results between 100 to 125 mg/dL indicate increased risk for diabetes (prediabetes).Fasting plasma glucose results greater than or equal to 126 mg/dL meet the criteria for diagnosis of diabetes. In the absence of unequivocal hyperglycemia, results should be confirmed by repeat testing. In a patient with classic symptoms of hyperglycemia or hyperglycemic crisis, random plasma glucose results greater than or equal to 200 mg/dL meet the criteria for diagnosis of diabetes.Reference: Standards of Medical Care in Diabetes 2016, [place] [employer] Association. Diabetes Care. 2016.39(Suppl 1). Performed By: #### 2 43205-08, ####[facility] LABORATORYCLIA [id number] [address] [place] [facility] Potassium [Moles/Vol] 3.8 mmol/L Normal 3.7-5.1 [facility] Comment on above: Order Comment: Shira feldman Type: BLOOD SPECIMENOrdering Facility: [facility] Address: [address] [place] [address] Performed By: #### 2 4320-06, ####[facility]ITALCLIA [id number] [address] Sodium [Moles/Vol] 138 mmol/L Normal 136-144 [facility] Comment on above: Order Comment: Shira feldman Type: BLOOD SPECIMENOrdering Facility: [facility] Address: [address] [place] [address] Performed By: #### 2 4320-06, ####[facility] LABORATORYCLIA [id number] [address] Urea nitrogen [Mass/Vol] 24 mg/dL Normal 9-24 [facility] Comment on above: Order Comment: Shira feldman Type: BLOOD SPECIMENOrdering Facility: [facility] Address: [address] [place] [address] Performed By: #### 2 4320-06, ####[facility] LABORATORYCLIA [id number] [address] [place] CASE MANAGEMon 06-28-2021 CASE MANAGEM Normal [facility] CBC panel Auto (Bld)on 06-28 Erythrocyte distribution width (RBC) [Ratio] 15.6 % High 11.5-15.0 [facility] Comment on above: Order Comment: Speci men Type: BLOOD SPECIMENOrdering Facility: [facility] Address: [address] [place] [address] Performed By: #### 5 8410-2 ####[facility] LABORATORYCLIA [id number] [address] Hematocrit (Bld) [Volume fraction] 30.5 % Low 39.0-51.0 [facility] Comment on above: Order Comment: Speci men Type: BLOOD SPECIMENOrdering Facility: [facility] Address: [address] [place] [address] Performed By: #### 5 8410-2 ####[facility] LABORATORYCLIA [id number] [address] [place] Hemoglobin (Bld) [Mass/Vol] 9.4 g/dL Low 13.0-17.0 [facility] Comment on above: Order Comment: Speci men Type: BLOOD SPECIMENOrdering Facility: [facility] Address: [address] [place] [address] Performed By: #### 5 8410-2 ####[facility] LABORATORYCLIA [id number] [address] [place] MCH (RBC) [Entitic mass] 27.8 pg Normal 26.0-34.0 [facility] Comment on above: Order Comment: Speci men Type: BLOOD SPECIMENOrdering Facility: [facility] Address: [address] [place] [address] Performed By: #### 5 8410-2 ####[facility] LABORATORYCLIA [id number] [address] MCHC (RBC) [Mass/Vol] 30.8 g/dL Normal 30.5-36.0 [facility] Comment on above: Order Comment: Speci men Type: BLOOD SPECIMENOrdering Facility: [facility] Address: [address] [place] [address] Performed By: #### 5 8410-2 ####[facility] LABORATORYCLIA [id number] [address] MCV (RBC) [Entitic vol] 90.2 fL Normal 80.0-100.0 [facility] Comment on above: Order Comment: Speci men Type: BLOOD SPECIMENOrdering Facility: [facility] Address: [address] [place] [address] Performed By: #### 5 8410-2 ####[facility] LABORATORYCLIA [id number] [address] Nucleated RBC (Bld) [#/Vol] 10*3/uL Normal <0.01 [facility] Comment on above: Order Comment: Speci men Type: BLOOD SPECIMENOrdering Facility: [facility] Address: [address] [place] [address] Performed By: #### 5 8410-2 ####[facility] LABORATORYCLIA [id number] [address] Platelet mean volume (Bld) [Entitic vol] 9.9 fL Normal 9.0-12.7 [facility] Comment on above: Order Comment: Speci men Type: BLOOD SPECIMENOrdering Facility: [facility] Address: [address] [place] [address] Performed By: #### 5 8410-2 ####[facility] LABORATORYCLIA [id number] [address] Platelets (Bld) [#/Vol] 333 10*3/uL Normal 150-400 [facility] Comment on above: Order Comment: Speci men Type: BLOOD SPECIMENOrdering Facility: [facility] Address: [address] [place] [address] Performed By: #### 5 8410-2 ####[facility] LABORATORYCLIA [id number] [address] [place] RBC (Bld) [#/Vol] 3.38 10*6/uL Low 4.20-6.00 [facility] Comment on above: Order Comment: Speci men Type: BLOOD SPECIMENOrdering Facility: [facility] Address: [address] [place] [address] Performed By: #### 5 8410-2 ####[facility] LABORATORYCLIA [id number] [place] [address] [place] WBC (Bld) [#/Vol] 9.71 10*3/uL Normal 3.70-11.00 [facility] Comment on above: Order Comment: Speci men Type: BLOOD SPECIMENOrdering Facility: [facility] Address: [address] [place] [address] Performed By: #### 5 8410-2 ####[facility] LABORATORYCLIA [id number] [address] [place] CNDSon 06-28-2021 CNDS Normal [facility] CONSULT PROGon 06-28-2021 CONSULT PROG Normal [facility] Magnesium SerPl-mCncon 06-28 Magnesium [Mass/Vol] 2.2 mg/dL Normal 1.7-2.3 [facility] Comment on above: Order Comment: Speci men Type: BLOOD SPECIMENOrdering Facility: [facility] Address: [address] [place] [address] Performed By: #### 2 4321-2, 47428-0 ####[facility] LABORATORYCLIA [id number] [address] [place] Vancomycin random [Mass/Vol] on 06-28-2021 Vancomycin [Mass/Vol] 23.0 ug/mL High 10.0-20.0 [facility] Comment on above: Order Comment: Speci men Type: BLOOD SPECIMENOrdering Facility: [facility] Address: [address] [place] [address] Result Comment: Refe rence ranges and high/low indicator flags are provided as general guidelines only. The treating physician must determine appropriate target levels/dosing based on the specific clinical situation. Performed By: #### 4 091-5 ####[facility] LABORATORYCLIA [id number] [place] [address] [place] ALLIED HEALTHon 06-27-2021 ALLIED HEALTH Normal [facility] Basic metabolic 2000 panelon 06-27-2021 Anion gap [Moles/Vol] 10 mmol/L Normal 9-18 [facility] Comment on above: Order Comment: Speci men Type: BLOOD SPECIMENOrdering Facility: [facility] Address: [address] [place] [address] Performed By: #### 2 4322, ####[facility] LABORATORYCLIA [id number] [place] [address] [place] Calcium [Mass/Vol] 8.8 mg/dL Normal 8.5-10.2 [facility] Comment on above: Order Comment: Speci men Type: BLOOD SPECIMENOrdering Facility: [facility] Address: [address] [place] [address] Performed By: #### 2 4320-06, ####[facility] LABORATORYCLIA [id number] [place] [address] [place] Chloride [Moles/Vol] 104 mmol/L Normal 97-105 [facility] Comment on above: Order Comment: Speci men Type: BLOOD SPECIMENOrdering Facility: [facility] Address: [address] [place] [address] Performed By: #### 2 2, ####[facility] LABORATORYCLIA [id number] [place] [id number] [place] CO2 [Moles/Vol] 26 mmol/L Normal 22-30 [facility] Comment on above: Order Comment: Speci men Type: BLOOD SPECIMENOrdering Facility: [facility] Address: [address] [place] [address] Performed By: #### 2 4322, ####[facility] LABORATORYCLIA [id number] [place] [address] [place] Creatinine [Mass/Vol] 0.57 mg/dL Low 0.73-1.22 [facility] Comment on above: Order Comment: Shira feldman Type: BLOOD SPECIMENOrdering Facility: [facility] Address: [address] [id number] Performed By: #### 2 4321-2, ####[facility] LABORATORYCLIA [id number] [place] [address] [place] GFR/1.73 sq M.predicted MDRD (S/P/Bld) [Vol rate/Area] mL/min/{1.73_m2} Normal [facility] Comment on above: Order Comment: [facility] Type: BLOOD SPECIMENOrdering Facility: [facility] Address: [address] [place], [place] [address] Result Comment: >60e GFR (Estimated GFR) Units of measure: mL/min/1.73 meters squaredeGFR is derived from the reexpressed MDRD Study equation using the following parameters: serum creatinine, age, gender and race. The creatinine assay has been calibrated to be traceable to IDMS. An eGFR <60 mL/min/1.73m2 for >3 months is consistent with chronic kidney disease. Refer to KDOQI guidelines for clinical interpretation. In patients with unstable renal function, e.g. those with acute kidney injury, the eGFR may not accurately reflect actual GFR. Performed By: #### 2 4321-2, ####[facility] LABORATORYCLIA [id number] [place] [address] [place] Glucose [Mass/Vol] 133 mg/dL High 74-99 [facility] Comment on above: Order Comment: Shira francia Type: BLOOD SPECIMENOrdering Facility: [facility] Address: [address] [place] [address] Result Comment: The [place] Diabetes Association (ADA) provides guidance for cutoff values for fasting glucose and random glucose. The ADA defines fasting as no caloric intake for at least 8 hours. Fasting plasma glucose results between 100 to 125 mg/dL indicate increased risk for diabetes (prediabetes).Fasting plasma glucose results greater than or equal to 126 mg/dL meet the criteria for diagnosis of diabetes. In the absence of unequivocal hyperglycemia, results should be confirmed by repeat testing. In a patient with classic symptoms of hyperglycemia or hyperglycemic crisis, random plasma glucose results greater than or equal to 200 mg/dL meet the criteria for diagnosis of diabetes.Reference: Standards of Medical Care in Diabetes 2016, [place] [employer]. Diabetes Care. 2016.39(Suppl 1). Performed By: #### 2 4321-2, ####[facility] LABORATORYCLIA [id number] [address] STATES [place] [facility] Potassium [Moles/Vol] 4.2 mmol/L Normal 3.7-5.1 [facility] Comment on above: Order Comment: Shira feldman Type: BLOOD SPECIMENOrdering Facility: [facility] Address: [address] [place] [address] Performed By: #### 2 4320-06, ####[facility] LABORATORYCLIA [id number] [address] STATES [facility] Sodium [Moles/Vol] 140 mmol/L Normal 136-144 [facility] Comment on above: Order Comment: Shira feldman Type: BLOOD SPECIMENOrdering Facility: [facility] Address: [address] [place] [address] Performed By: #### 2 4320-06, ####[facility] LABORATORYCLIA [id number] [address] STATES [facility] Urea nitrogen [Mass/Vol] 24 mg/dL Normal 9-24 [facility] Comment on above: Order Comment: Shira feldman Type: BLOOD SPECIMENOrdering Facility: [facility] Address: [address] [place] [address] Performed By: #### 2 4320-06, ####[facility] LABORATORYCLIA [id number] [address] [place] CASE MANAGEMon 06-27-2021 CASE MANAGEM Normal [facility] CBC panel Auto (Bld)on 06-27 Erythrocyte distribution width (RBC) [Ratio] 15.8 % High 11.5-15.0 [facility] Comment on above: Order Comment: Speci men Type: BLOOD SPECIMENOrdering Facility: [facility] Address: [address] [place] [address] Performed By: #### 5 8410-2 ####[facility] LABORATORYCLIA [id number] [address] OF [facility] Hematocrit (Bld) [Volume fraction] 31.4 % Low 39.0-51.0 [facility] Comment on above: Order Comment: Speci men Type: BLOOD SPECIMENOrdering Facility: [facility] Address: [address] [place] [address] Performed By: #### 5 8410-2 ####[facility] LABORATORYCLIA [id number] [address] [place] [facility] Hemoglobin (Bld) [Mass/Vol] 9.3 g/dL Low 13.0-17.0 [facility] Comment on above: Order Comment: Speci men Type: BLOOD SPECIMENOrdering Facility: [facility] Address: [address] [place] [address] Performed By: #### 5 8410-2 ####[facility] LABORATORYCLIA [id number] [address] OF [facility] MCH (RBC) [Entitic mass] 27.0 pg Normal 26.0-34.0 [facility] Comment on above: Order Comment: Speci men Type: BLOOD SPECIMENOrdering Facility: [facility] Address: [address] [place] [address] Performed By: #### 5 8410-2 ####[facility] LABORATORYCLIA [id number] [address] [place] MCHC (RBC) [Mass/Vol] 29.6 g/dL Low 30.5-36.0 [facility] Comment on above: Order Comment: Speci men Type: BLOOD SPECIMENOrdering Facility: [facility] Address: [address] [place] [address] Performed By: #### 5 8410-2 ####[facility] LABORATORYCLIA [id number] [address] [place] [facility] MCV (RBC) [Entitic vol] 91.3 fL Normal 80.0-100.0 [facility] Comment on above: Order Comment: Speci men Type: BLOOD SPECIMENOrdering Facility: [facility] Address: [address] [place] [address] Performed By: #### 5 8410-2 ####[facility] LABORATORYCLIA [id number] [address] Nucleated RBC (Bld) [#/Vol] 10*3/uL Normal <0.01 [facility] Comment on above: Order Comment: Speci men Type: BLOOD SPECIMENOrdering Facility: [facility] Address: [address] [place] [address] Performed By: #### 5 8410-2 ####[facility] LABORATORYCLIA [id number] [address] Platelet mean volume (Bld) [Entitic vol] 10.3 fL Normal 9.0-12.7 [facility] Comment on above: Order Comment: Speci men Type: BLOOD SPECIMENOrdering Facility: [facility] Address: [address] [place] [address] Performed By: #### 5 8410-2 ####[facility] LABORATORYCLIA [id number] [address] Platelets (Bld) [#/Vol] 359 10*3/uL Normal 150-400 [facility] Comment on above: Order Comment: Speci men Type: BLOOD SPECIMENOrdering Facility: [facility] Address: [address] [place] [address] Performed By: #### 5 8410-2 ####[facility] LABORATORYCLIA [id number] [address] [place] RBC (Bld) [#/Vol] 3.44 10*6/uL Low 4.20-6.00 [facility] Comment on above: Order Comment: Speci men Type: BLOOD SPECIMENOrdering Facility: [facility] Address: [address] [place] [address] Performed By: #### 5 8410-2 ####[facility] LABORATORYCLIA [id number] [address] [place] WBC (Bld) [#/Vol] 10.73 10*3/uL Normal 3.70-11.00 [facility] Comment on above: Order Comment: Speci men Type: BLOOD SPECIMENOrdering Facility: [facility] Address: [address] [place] [address] Performed By: #### 5 8410-2 ####[facility] LABORATORYCLIA [id number] [address] [place] Magnesium SerPl-mCncon 06-27 Magnesium [Mass/Vol] 2.2 mg/dL Normal 1.7-2.3 [facility] Comment on above: Order Comment: Speci men Type: BLOOD SPECIMENOrdering Facility: [facility] Address: [address] [place] [address] Performed By: #### 2 4321-2, 31760-9 ####[facility]ORATORYCLIA [id number] [address] [place] NT-proBNP SerPl-ncon 06-27 Natriuretic peptide.B prohormone N-Terminal [Mass/Vol] 184 pg/mL High <125 [facility] Comment on above: Order Comment: Speci men Type: BLOOD SPECIMENOrdering Facility: [facility] Address: [address] [place] [address] Performed By: #### 3 3762-6 ####[facility] LABORATORYCLIA [id number] [place] [address] [place] NUTRITIONon 06-27-2021 NUTRITION Normal [facility] THERAPY NTon 06-27-2021 THERAPY NT Normal [facility] THERAPY NT Normal [facility] XR CHEST 1V FRONTALon 2021 XR CHEST 1V FRONTAL Normal [facility] Basic metabolic 2000 panelon 06-26-2021 Anion gap [Moles/Vol] 9 mmol/L Normal 9-18 [facility] Comment on above: Order Comment: Speci men Type: BLOOD SPECIMENOrdering Facility: [facility] Address: [address] [address] Performed By: #### 1 9123-9, 93668-4 ####[facility]ORATORYCLIA [id number] [place] [address] [place] Calcium [Mass/Vol] 8.7 mg/dL Normal 8.5-10.2 [facility] Comment on above: Order Comment: Speci men Type: BLOOD SPECIMENOrdering Facility: [facility] Address: [address] [place] [address] Performed By: #### 1 9123-9, 24883-8 ####[facility] LABORATORYCLIA [id number] [place] [address] [place] Chloride [Moles/Vol] 105 mmol/L Normal 97-105 [facility] Comment on above: Order Comment: Speci men Type: BLOOD SPECIMENOrdering Facility: [facility] Address: [address] [place] [address] Performed By: #### 1 9123-9, 65855-4 ####[facility]ORATORYCLIA [id number] [place] [address] [place] CO2 [Moles/Vol] 26 mmol/L Normal 22-30 [facility] Comment on above: Order Comment: Speci men Type: BLOOD SPECIMENOrdering Facility: [facility] Address: [address] [address] Performed By: #### 1 9123-9, 94493-3 ####[facility] LABORATORYCLIA [id number] [place] [address] [place] Creatinine [Mass/Vol] 0.56 mg/dL Low 0.73-1.22 [facility] Comment on above: Order Comment: Speci men Type: BLOOD SPECIMENOrdering Facility: [facility] Address: [address] [place], [place] [address] Performed By: #### 1 9123-9, 03532-8 ####[facility] LABORATORYCLIA [id number] [address] [place] [id number] [place] GFR/1.73 sq M.predicted MDRD (S/P/Bld) [Vol rate/Area] mL/min/{1.73_m2} Normal [facility] Comment on above: Order Comment: Shira feldman Type: BLOOD SPECIMENOrdering Facility: [facility] Address: [address] [address] Result Comment: >60e GFR (Estimated GFR) Units of measure: mL/min/1.73 meters squaredeGFR is derived from the reexpressed MDRD Study equation using the following parameters: serum creatinine, age, gender and race. The creatinine assay has been calibrated to be traceable to IDMS. An eGFR <60 mL/min/1.73m2 for >3 months is consistent with chronic kidney disease. Refer to KDOQI guidelines for clinical interpretation. In patients with unstable renal function, e.g. those with acute kidney injury, the eGFR may not accurately reflect actual GFR. Performed By: #### 1 9123-9, 72997-8 ####[facility] LABORATORYCLIA [id number] [address] [id number] [place] Glucose [Mass/Vol] 134 mg/dL High 74-99 [facility] Comment on above: Order Comment: Shira feldman Type: BLOOD SPECIMENOrdering Facility: [facility] Address: [address] [address] Result Comment: The [place] Diabetes Association (ADA) provides guidance for cutoff values for fasting glucose and random glucose. The ADA defines fasting as no caloric intake for at least 8 hours. Fasting plasma glucose results between 100 to 125 mg/dL indicate increased risk for diabetes (prediabetes).Fasting plasma glucose results greater than or equal to 126 mg/dL meet the criteria for diagnosis of diabetes. In the absence of unequivocal hyperglycemia, results should be confirmed by repeat testing. In a patient with classic symptoms of hyperglycemia or hyperglycemic crisis, random plasma glucose results greater than or equal to 200 mg/dL meet the criteria for diagnosis of diabetes.Reference: Standards of Medical Care in Diabetes 2016, [place] [employer]. Diabetes Care. 2016.39(Suppl 1). Performed By: #### 1 9123-9, 07003-1 ####[facility] LABORATORYCLIA [id number] [place] [address] [place] Potassium [Moles/Vol] 3.8 mmol/L Normal 3.7-5.1 [facility] Comment on above: Order Comment: Speci men Type: BLOOD SPECIMENOrdering Facility: [facility] Address: [address] [place] [address] Performed By: #### 1 9123-9, 61174-5 ####[facility] LABORATORYCLIA [id number] [address] [place] [facility] Sodium [Moles/Vol] 140 mmol/L Normal 136-144 [facility] Comment on above: Order Comment: Speci men Type: BLOOD SPECIMENOrdering Facility: [facility] Address: [address] [place] [address] Performed By: #### 1 9123-9, 14175-1 ####[facility]ORATORYCLIA [id number] [place] [address] [place] Urea nitrogen [Mass/Vol] 24 mg/dL Normal 9-24 [facility] Comment on above: Order Comment: Speci men Type: BLOOD SPECIMENOrdering Facility: [facility] Address: [address] [place] [address] Performed By: #### 1 9123-9, 71333-3 ####[facility]ORATORYCLIA [id number] [address] [place] CBC panel Auto (Bld)on 06-26 Erythrocyte distribution width (RBC) [Ratio] 15.9 % High 11.5-15.0 [facility] Comment on above: Order Comment: Speci men Type: BLOOD SPECIMENOrdering Facility: [facility] Address: [address] [place] [address] Performed By: #### 5 8410-2 ####[facility] LABORATORYCLIA [id number] [address] Hematocrit (Bld) [Volume fraction] 29.8 % Low 39.0-51.0 [facility] Comment on above: Order Comment: Speci men Type: BLOOD SPECIMENOrdering Facility: [facility] Address: [address] [place] [address] Performed By: #### 5 8410-2 ####[facility] LABORATORYCLIA [id number] [address] [place] [facility] Hemoglobin (Bld) [Mass/Vol] 9.1 g/dL Low 13.0-17.0 [facility] Comment on above: Order Comment: Speci men Type: BLOOD SPECIMENOrdering Facility: [facility] Address: [address] [place] [address] Performed By: #### 5 8410-2 ####[facility] LABORATORYCLIA [id number] [address] MCH (RBC) [Entitic mass] 27.8 pg Normal 26.0-34.0 [facility] Comment on above: Order Comment: Speci men Type: BLOOD SPECIMENOrdering Facility: [facility] Address: [address] [place] [address] Performed By: #### 5 8410-2 ####[facility] LABORATORYCLIA [id number] [address] [place] MCHC (RBC) [Mass/Vol] 30.5 g/dL Normal 30.5-36.0 [facility] Comment on above: Order Comment: Speci men Type: BLOOD SPECIMENOrdering Facility: [facility] Address: [address] [place] [address] Performed By: #### 5 8410-2 ####[facility] LABORATORYCLIA [id number] [address] MCV (RBC) [Entitic vol] 91.1 fL Normal 80.0-100.0 [facility] Comment on above: Order Comment: Speci men Type: BLOOD SPECIMENOrdering Facility: [facility] Address: [address] [address] Performed By: #### 5 8410-2 ####[facility] LABORATORYCLIA [id number] [address] [place] Nucleated RBC (Bld) [#/Vol] 10*3/uL Normal <0.01 [facility] Comment on above: Order Comment: Speci men Type: BLOOD SPECIMENOrdering Facility: [facility] Address: [address] [place] [address] Performed By: #### 5 8410-2 ####[facility]ORATORYCLIA [id number] [address] [place] Platelet mean volume (Bld) [Entitic vol] 10.3 fL Normal 9.0-12.7 [facility] Comment on above: Order Comment: Speci men Type: BLOOD SPECIMENOrdering Facility: [facility] Address: [address] [place] [address] Performed By: #### 5 8410-2 ####[facility] LABORATORYCLIA [id number] [address] [place] Platelets (Bld) [#/Vol] 336 10*3/uL Normal 150-400 [facility] Comment on above: Order Comment: Speci men Type: BLOOD SPECIMENOrdering Facility: [facility] Address: [address] [place] [address] Performed By: #### 5 8410-2 ####[facility]ORATORYCLIA [id number] [address] [place] RBC (Bld) [#/Vol] 3.27 10*6/uL Low 4.20-6.00 [facility] Comment on above: Order Comment: Speci men Type: BLOOD SPECIMENOrdering Facility: [facility] Address: [address] [place] [address] Performed By: #### 5 8410-2 ####[facility] LABORATORYCLIA [id number] [place] [address] [place] WBC (Bld) [#/Vol] 9.14 10*3/uL Normal 3.70-11.00 [facility] Comment on above: Order Comment: Speci men Type: BLOOD SPECIMENOrdering Facility: [facility] Address: [address] [place] [address] Performed By: #### 5 8410-2 ####[facility] LABORATORYCLIA [id number] [address] [place] CONSULT PROGon 06-26-2021 CONSULT PROG Normal [facility] Magnesium SerPl-mCncon 06-26 Magnesium [Mass/Vol] 2.2 mg/dL Normal 1.7-2.3 [facility] Comment on above: Order Comment: Speci men Type: BLOOD SPECIMENOrdering Facility: [facility] Address: [address] [place] [address] Performed By: #### 1 9123-9, 55310-0 ####[facility]ORATORYCLIA [id number] [address] NURSING PROGon 06-26-2021 NURSING PROG Normal [facility] NURSING PROG Normal [facility] Basic metabolic 2000 panelon 06-25-2021 Anion gap [Moles/Vol] 8 mmol/L Low 9-18 [facility] Comment on above: Order Comment: Speci men Type: BLOOD SPECIMENOrdering Facility: [facility] Address: [address] [place] [address] Performed By: #### 2 4321-2, ####[facility] LABORATORYCLIA [id number] [address] [place] Calcium [Mass/Vol] 8.8 mg/dL Normal 8.5-10.2 [facility] Comment on above: Order Comment: Speci men Type: BLOOD SPECIMENOrdering Facility: [facility] Address: [address] [place] [address] Performed By: #### 2 4321-2, ####[facility] LABORATORYCLIA [id number] [place] [address] [place] Chloride [Moles/Vol] 105 mmol/L Normal 97-105 [facility] Comment on above: Order Comment: Speci men Type: BLOOD SPECIMENOrdering Facility: [facility] Address: [address] [place] [address] Performed By: #### 2 4321-2, ####[facility] LABORATORYCLIA [id number] [place] [address] [place] CO2 [Moles/Vol] 27 mmol/L Normal 22-30 [facility] Comment on above: Order Comment: Speci men Type: BLOOD SPECIMENOrdering Facility: [facility] Address: [address] [place] [address] Performed By: #### 2 4321-2, ####[facility]ORATORYCLIA [id number] [address] [place] Creatinine [Mass/Vol] 0.59 mg/dL Low 0.73-1.22 [facility] Comment on above: Order Comment: Speci men Type: BLOOD SPECIMENOrdering Facility: [facility] Address: [address] [place] [address] Performed By: #### 2 4321-2, ####[facility] LABORATORYCLIA [id number] [address] [place] GFR/1.73 sq M.predicted MDRD (S/P/Bld) [Vol rate/Area] mL/min/{1.73_m2} Normal [facility] Comment on above: Order Comment: Speci men Type: BLOOD SPECIMENOrdering Facility: [facility] Address: [address] [place] [address] Result Comment: >60e GFR (Estimated GFR) Units of measure: mL/min/1.73 meters squaredeGFR is derived from the reexpressed MDRD Study equation using the following parameters: serum creatinine, age, gender and race. The creatinine assay has been calibrated to be traceable to IDMS. An eGFR <60 mL/min/1.73m2 for >3 months is consistent with chronic kidney disease. Refer to KDOQI guidelines for clinical interpretation. In patients with unstable renal function, e.g. those with acute kidney injury, the eGFR may not accurately reflect actual GFR. Performed By: #### 2 4320-06, ####[facility] LABORATORYCLIA [id number] [place] [address] [place] Glucose [Mass/Vol] 132 mg/dL High 74-99 [facility] Comment on above: Order Comment: Speci men Type: BLOOD SPECIMENOrdering Facility: [facility] Address: [address] [place], [place] [address] Result Comment: The [place] [employer] (ADA) provides guidance for cutoff values for fasting glucose and random glucose. The ADA defines fasting as no caloric intake for at least 8 hours. Fasting plasma glucose results between 100 to 125 mg/dL indicate increased risk for diabetes (prediabetes).Fasting plasma glucose results greater than or equal to 126 mg/dL meet the criteria for diagnosis of diabetes. In the absence of unequivocal hyperglycemia, results should be confirmed by repeat testing. In a patient with classic symptoms of hyperglycemia or hyperglycemic crisis, random plasma glucose results greater than or equal to 200 mg/dL meet the criteria for diagnosis of diabetes.Reference: Standards of Medical Care in Diabetes 2016, [place] [employer]. Diabetes Care. 2016.39(Suppl 1). Performed By: #### 2 4320-06, ####[facility] LABORATORYCLIA [id number] [place] [address] [place] Potassium [Moles/Vol] 3.9 mmol/L Normal 3.7-5.1 [facility] Comment on above: Order Comment: Speci [facility] Type: BLOOD SPECIMENOrdering Facility: [facility] Address: [address] [place] [address] Performed By: #### 2 4320-06, ####[facility] LABORATORYCLIA [id number] [place] [address] [place] Sodium [Moles/Vol] 140 mmol/L Normal 136-144 [facility] Comment on above: Order Comment: Speci men Type: BLOOD SPECIMENOrdering Facility: [facility] Address: [address] [place] [address] Performed By: #### 2 4321-2, 91756-1 ####[facility]ORATORYCLIA [id number] [address] [place] Urea nitrogen [Mass/Vol] 24 mg/dL Normal 9-24 [facility] Comment on above: Order Comment: Speci men Type: BLOOD SPECIMENOrdering Facility: [facility] Address: [address] [place] [address] Performed By: #### 2 4321-2, ####[facility] LABORATORYCLIA [id number] [address] [facility] CASE MANAGEMon 06-25-2021 CASE MANAGEM Normal [facility] CBC panel Auto (Bld)on 06-25 Erythrocyte distribution width (RBC) [Ratio] 15.9 % High 11.5-15.0 [facility] Comment on above: Order Comment: Speci men Type: BLOOD SPECIMENOrdering Facility: [facility] Address: [address] [place] [address] Performed By: #### 5 8410-2 ####[facility] LABORATORYCLIA [id number] [address] [place] Hematocrit (Bld) [Volume fraction] 31.0 % Low 39.0-51.0 [facility] Comment on above: Order Comment: Speci men Type: BLOOD SPECIMENOrdering Facility: [facility] Address: [address] [place] [address] Performed By: #### 5 8410-2 ####[facility] LABORATORYCLIA [id number] [address] [place] Hemoglobin (Bld) [Mass/Vol] 9.4 g/dL Low 13.0-17.0 [facility] Comment on above: Order Comment: Speci men Type: BLOOD SPECIMENOrdering Facility: [facility] Address: [address] [place] [address] Performed By: #### 5 8410-2 ####[facility] LABORATORYCLIA [id number] [address] MCH (RBC) [Entitic mass] 28.1 pg Normal 26.0-34.0 [facility] Comment on above: Order Comment: Speci men Type: BLOOD SPECIMENOrdering Facility: [facility] Address: [address] [place] [address] Performed By: #### 5 8410-2 ####[facility]ORATORYCLIA [id number] [address] MCHC (RBC) [Mass/Vol] 30.3 g/dL Low 30.5-36.0 [facility] Comment on above: Order Comment: Speci men Type: BLOOD SPECIMENOrdering Facility: [facility] Address: [address] [place] [address] Performed By: #### 5 8410-2 ####[facility] LABORATORYCLIA [id number] [address] MCV (RBC) [Entitic vol] 92.5 fL Normal 80.0-100.0 [facility] Comment on above: Order Comment: Speci men Type: BLOOD SPECIMENOrdering Facility: [facility] Address: [address] [place] [address] Performed By: #### 5 8410-2 ####[facility] LABORATORYCLIA [id number] [address] Nucleated RBC (Bld) [#/Vol] 10*3/uL Normal <0.01 [facility] Comment on above: Order Comment: Speci men Type: BLOOD SPECIMENOrdering Facility: [facility] Address: [address] [place] [address] Performed By: #### 5 8410-2 ####[facility] LABORATORYCLIA [id number] [address] Platelet mean volume (Bld) [Entitic vol] 10.5 fL Normal 9.0-12.7 [facility] Comment on above: Order Comment: Speci men Type: BLOOD SPECIMENOrdering Facility: [facility] Address: [address] [place] [address] Performed By: #### 5 8410-2 ####[facility] LABORATORYCLIA [id number] [address] [place] Platelets (Bld) [#/Vol] 311 10*3/uL Normal 150-400 [facility] Comment on above: Order Comment: Speci men Type: BLOOD SPECIMENOrdering Facility: [facility] Address: [address] [place] [address] Performed By: #### 5 8410-2 ####[facility] LABORATORYCLIA [id number] [place] [address] [place] RBC (Bld) [#/Vol] 3.35 10*6/uL Low 4.20-6.00 [facility] Comment on above: Order Comment: Speci men Type: BLOOD SPECIMENOrdering Facility: [facility] Address: [address] [place] [address] Performed By: #### 5 8410-2 ####[facility] LABORATORYCLIA [id number] [address] [place] [facility] WBC (Bld) [#/Vol] 9.57 10*3/uL Normal 3.70-11.00 [facility] Comment on above: Order Comment: Speci men Type: BLOOD SPECIMENOrdering Facility: [facility] Address: [address] [place] [address] Performed By: #### 5 8410-2 ####[facility] LABORATORYCLIA [id number] [address] [place] Magnesium SerPl-mCncon 06-25 Magnesium [Mass/Vol] 2.4 mg/dL High 1.7-2.3 [facility] Comment on above: Order Comment: Speci men Type: BLOOD SPECIMENOrdering Facility: [facility] Address: [address] [place] [address] Performed By: #### 2 4321-2, 52853-8 ####[facility]ORATORYCLIA [id number] [place] [address] [place] Basic metabolic 2000 panelon 06-24-2021 Anion gap [Moles/Vol] 9 mmol/L Normal 9-18 [facility] Comment on above: Order Comment: Speci men Type: BLOOD SPECIMENOrdering Facility: [facility] Address: [address] [place] [address] Performed By: #### 1 9123-9, 49468-6 ####[facility] LABORATORYCLIA [id number] [place] [address] [place] Calcium [Mass/Vol] 8.6 mg/dL Normal 8.5-10.2 [facility] Comment on above: Order Comment: Speci men Type: BLOOD SPECIMENOrdering Facility: [facility] Address: [address] [place] [address] Performed By: #### 1 9123-9, 58026-5 ####[facility] LABORATORYCLIA [id number] [place] [address] [place] Chloride [Moles/Vol] 103 mmol/L Normal 97-105 [facility] Comment on above: Order Comment: Speci men Type: BLOOD SPECIMENOrdering Facility: [facility] Address: [address] [place] [address] Performed By: #### 1 9123-9, 03581-0 ####[facility]ORATORYCLIA [id number] [place] [address] [place] CO2 [Moles/Vol] 26 mmol/L Normal 22-30 [facility] Comment on above: Order Comment: Speci men Type: BLOOD SPECIMENOrdering Facility: [facility] Address: [address] [place] [address] Performed By: #### 1 9123-9, 78245-3 ####[facility]ORATORYCLIA [id number] [place] [address] [place] Creatinine [Mass/Vol] 0.60 mg/dL Low 0.73-1.22 [facility] Comment on above: Order Comment: Shira feldman Type: BLOOD SPECIMENOrdering Facility: [facility] Address: [address] [place] [id number] Performed By: #### 1 9123-9, 89427-7 ####[facility] LABORATORYCLIA [id number] [place] [address] [place] GFR/1.73 sq M.predicted MDRD (S/P/Bld) [Vol rate/Area] mL/min/{1.73_m2} Normal [facility] Comment on above: Order Comment: Johncara feldman Type: BLOOD SPECIMENOrdering Facility: [facility] Address: [address] [place] [address] Result Comment: >60e GFR (Estimated GFR) Units of measure: mL/min/1.73 meters squaredeGFR is derived from the reexpressed MDRD Study equation using the following parameters: serum creatinine, age, gender and race. The creatinine assay has been calibrated to be traceable to IDMS. An eGFR <60 mL/min/1.73m2 for >3 months is consistent with chronic kidney disease. Refer to KDOQI guidelines for clinical interpretation. In patients with unstable renal function, e.g. those with acute kidney injury, the eGFR may not accurately reflect actual GFR. Performed By: #### 1 9123-9, 72799-4 ####[facility] LABORATORYCLIA [id number] [place] [address] [place] Glucose [Mass/Vol] 126 mg/dL High 74-99 [facility] Comment on above: Order Comment: Shira feldman Type: BLOOD SPECIMENOrdering Facility: [facility] Address: [address] [phone] Result Comment: The [place] [employer] (ADA) provides guidance for cutoff values for fasting glucose and random glucose. The ADA defines fasting as no caloric intake for at least 8 hours. Fasting plasma glucose results between 100 to 125 mg/dL indicate increased risk for diabetes (prediabetes).Fasting plasma glucose results greater than or equal to 126 mg/dL meet the criteria for diagnosis of diabetes. In the absence of unequivocal hyperglycemia, results should be confirmed by repeat testing. In a patient with classic symptoms of hyperglycemia or hyperglycemic crisis, random plasma glucose results greater than or equal to 200 mg/dL meet the criteria for diagnosis of diabetes.Reference: Standards of Medical Care in Diabetes 2016, [place] [employer]. Diabetes Care. 2016.39(Suppl 1). Performed By: #### 1 9123-9, 89487-8 ####[facility] LABORATORYCLIA [id number] [address] [place] Potassium [Moles/Vol] 3.9 mmol/L Normal 3.7-5.1 [facility] Comment on above: Order Comment: Shira feldman Type: BLOOD SPECIMENOrdering Facility: [facility] Address: [address] [place] [address] Performed By: #### 1 9123-9, 54914-0 ####[facility] LABORATORYCLIA [id number] [address] Sodium [Moles/Vol] 138 mmol/L Normal 136-144 [facility] Comment on above: Order Comment: Shira feldman Type: BLOOD SPECIMENOrdering Facility: [facility] Address: [address] [place] [address] Performed By: #### 1 91239, 98048-9 ####[facility]ORATORYCLIA [id number] [address] STATES [facility] Urea nitrogen [Mass/Vol] 24 mg/dL Normal 9-24 [facility] Comment on above: Order Comment: Shira feldman Type: BLOOD SPECIMENOrdering Facility: [facility] Address: [address] [place] [address] Performed By: #### 1 91239, 32931-1 ####[facility] LABORATORYCLIA [id number] [address] [place] CASE MANAGEMon 06-24-2021 CASE MANAGEM Normal [facility] CASE MANAGEM Normal [facility] CASE MANAGEM Normal [facility] CBC panel Auto (Bld)on 06-24 Erythrocyte distribution width (RBC) [Ratio] 16.1 % High 11.5-15.0 [facility] Comment on above: Order Comment: Speci men Type: BLOOD SPECIMENOrdering Facility: [facility] Address: [address] [place] [address] Performed By: #### 5 8410-2 ####[facility] LABORATORYCLIA [id number] [address] Hematocrit (Bld) [Volume fraction] 31.7 % Low 39.0-51.0 [facility] Comment on above: Order Comment: Speci men Type: BLOOD SPECIMENOrdering Facility: [facility] Address: [address] [place] [address] Performed By: #### 5 8410-2 ####[facility]ORATORYCLIA [id number] [address] [place] [facility] Hemoglobin (Bld) [Mass/Vol] 9.7 g/dL Low 13.0-17.0 [facility] Comment on above: Order Comment: Speci men Type: BLOOD SPECIMENOrdering Facility: [facility] Address: [address] [place] [address] Performed By: #### 5 8410-2 ####[facility] LABORATORYCLIA [id number] [address] [place] MCH (RBC) [Entitic mass] 28.0 pg Normal 26.0-34.0 [facility] Comment on above: Order Comment: Speci men Type: BLOOD SPECIMENOrdering Facility: [facility] Address: [address] [place] [address] Performed By: #### 5 8410-2 ####[facility]ORATORYCLIA [id number] [address] MCHC (RBC) [Mass/Vol] 30.6 g/dL Normal 30.5-36.0 [facility] Comment on above: Order Comment: Speci men Type: BLOOD SPECIMENOrdering Facility: [facility] Address: [address] [place] [address] Performed By: #### 5 8410-2 ####[facility]ORATORYCLIA [id number] [address] MCV (RBC) [Entitic vol] 91.4 fL Normal 80.0-100.0 [facility] Comment on above: Order Comment: Speci men Type: BLOOD SPECIMENOrdering Facility: [facility] Address: [address] [place] [address] Performed By: #### 5 8410-2 ####[facility]ORATORYCLIA [id number] [address] Nucleated RBC (Bld) [#/Vol] 10*3/uL Normal <0.01 [facility] Comment on above: Order Comment: Speci men Type: BLOOD SPECIMENOrdering Facility: [facility] Address: [address] [place] [address] Performed By: #### 5 8410-2 ####[facility] LABORATORYCLIA [id number] [address] Platelet mean volume (Bld) [Entitic vol] 11.0 fL Normal 9.0-12.7 [facility] Comment on above: Order Comment: Speci men Type: BLOOD SPECIMENOrdering Facility: [facility] Address: [address] [place] [address] Performed By: #### 5 8410-2 ####[facility]ORATORYCLIA [id number] [address] Platelets (Bld) [#/Vol] 358 10*3/uL Normal 150-400 [facility] Comment on above: Order Comment: Speci men Type: BLOOD SPECIMENOrdering Facility: [facility] Address: [address] [place] [address] Performed By: #### 5 8410-2 ####[facility]ORATORYCLIA [id number] [address] RBC (Bld) [#/Vol] 3.47 10*6/uL Low 4.20-6.00 [facility] Comment on above: Order Comment: Speci men Type: BLOOD SPECIMENOrdering Facility: [facility] Address: [address] [place] [address] Performed By: #### 5 8410-2 ####[facility] LABORATORYCLIA [id number] [place] [address] [place] WBC (Bld) [#/Vol] 10.07 10*3/uL Normal 3.70-11.00 [facility] Comment on above: Order Comment: Speci men Type: BLOOD SPECIMENOrdering Facility: [facility] Address: [address] [place] [address] Performed By: #### 5 8410-2 ####[facility] LABORATORYCLIA [id number] [place] [address] [place] Magnesium SerPl-ncon 06-24 Magnesium [Mass/Vol] 2.3 mg/dL Normal 1.7-2.3 [facility] Comment on above: Order Comment: Speci men Type: BLOOD SPECIMENOrdering Facility: [facility] Address: [address] [place] [address] Performed By: #### 1 9123-9, 28331-2 ####[facility] LABORATORYCLIA [id number] [place] [address] [place] ALLIED HEALTHon 06-23-2021 ALLIED HEALTH Normal [facility] Basic metabolic 2000 panelon 06-23-2021 Anion gap [Moles/Vol] 9 mmol/L Normal 9-18 [facility] Comment on above: Order Comment: Speci men Type: BLOOD SPECIMENOrdering Facility: [facility] Address: [address] [place] [address] Performed By: #### 1 9123-9, 91686-5 ####[facility]ORATORYCLIA [id number] [place] [address] [place] Calcium [Mass/Vol] 8.4 mg/dL Low 8.5-10.2 [facility] Comment on above: Order Comment: Speci men Type: BLOOD SPECIMENOrdering Facility: [facility] Address: [address] [place] [address] Performed By: #### 1 9123-9, 77610-9 ####[facility] LABORATORYCLIA [id number] [place] [address] [place] Chloride [Moles/Vol] 104 mmol/L Normal 97-105 [facility] Comment on above: Order Comment: Speci men Type: BLOOD SPECIMENOrdering Facility: [facility] Address: [address] [place] [address] Performed By: #### 1 9123-9, 85645-5 ####[facility] LABORATORYCLIA [id number] [place] [address] [place] CO2 [Moles/Vol] 26 mmol/L Normal 22-30 [facility] Comment on above: Order Comment: Speci men Type: BLOOD SPECIMENOrdering Facility: [facility] Address: [address] [place] [address] Performed By: #### 1 9123-9, 12947-0 ####[facility]ORATORYCLIA [id number] [place] [address] [place] Creatinine [Mass/Vol] 0.62 mg/dL Low 0.73-1.22 [facility] Comment on above: Order Comment: Speci men Type: BLOOD SPECIMENOrdering Facility: [facility] Address: [address] [place] [address] Performed By: #### 1 9123-9, 11130-7 ####[facility] LABORATORYCLIA [id number] [place] [address] [place] GFR/1.73 sq M.predicted MDRD (S/P/Bld) [Vol rate/Area] mL/min/{1.73_m2} Normal [facility] Comment on above: Order Comment: Speci men Type: BLOOD SPECIMENOrdering Facility: [facility] Address: [address] [place] [address] Result Comment: >60e GFR (Estimated GFR) Units of measure: mL/min/1.73 meters squaredeGFR is derived from the reexpressed MDRD Study equation using the following parameters: serum creatinine, age, gender and race. The creatinine assay has been calibrated to be traceable to IDMS. An eGFR <60 mL/min/1.73m2 for >3 months is consistent with chronic kidney disease. Refer to KDOQI guidelines for clinical interpretation. In patients with unstable renal function, e.g. those with acute kidney injury, the eGFR may not accurately reflect actual GFR. Performed By: #### 1 9123-9, 43084-1 ####[facility]ITALCL[facility] [id number] [place] [address] [place] Glucose [Mass/Vol] 111 mg/dL High 74-99 [facility] Comment on above: Order Comment: Shira feldman Type: BLOOD SPECIMENOrdering Facility: [facility] Address: [address] [place], [place] [phone] Result Comment: The [place] [employer] (ADA) provides guidance for cutoff values for fasting glucose and random glucose. The ADA defines fasting as no caloric intake for at least 8 hours. Fasting plasma glucose results between 100 to 125 mg/dL indicate increased risk for diabetes (prediabetes).Fasting plasma glucose results greater than or equal to 126 mg/dL meet the criteria for diagnosis of diabetes. In the absence of unequivocal hyperglycemia, results should be confirmed by repeat testing. In a patient with classic symptoms of hyperglycemia or hyperglycemic crisis, random plasma glucose results greater than or equal to 200 mg/dL meet the criteria for diagnosis of diabetes.Reference: Standards of Medical Care in Diabetes 2016, [place] [employer]. Diabetes Care. 2016.39(Suppl 1). Performed By: #### 1 9123-9, 56822-6 ####[facility] LABORATORYCLIA [id number] [place] [address] [place] Potassium [Moles/Vol] 4.1 mmol/L Normal 3.7-5.1 [facility] Comment on above: Order Comment: Shira feldman Type: BLOOD SPECIMENOrdering Facility: [facility] Address: [address] [place] [id number] Performed By: #### 1 9123-9, 03591-2 ####[facility] LABORATORYCLIA [id number] [address] STATES [facility] Sodium [Moles/Vol] 139 mmol/L Normal 136-144 [facility] Comment on above: Order Comment: Speci men Type: BLOOD SPECIMENOrdering Facility: [facility] Address: [address] [place] [address] Performed By: #### 1 9123-9, 49432-8 ####[facility] LABORATORYCLIA [id number] [address] [place] Urea nitrogen [Mass/Vol] 26 mg/dL High 9-24 [facility] Comment on above: Order Comment: Speci men Type: BLOOD SPECIMENOrdering Facility: [facility] Address: [address] [place] [address] Performed By: #### 1 [address]12[address], ####[facility] LABORATORYCLIA [id number] [address] CASE MANAGEMon 06-23-2021 CASE MANAGEM Normal [facility] CBC panel Auto (Bld)on 06-23 Erythrocyte distribution width (RBC) [Ratio] 16.0 % High 11.5-15.0 [facility] Comment on above: Order Comment: Speci men Type: BLOOD SPECIMENOrdering Facility: [facility] Address: [address] [place] [address] Performed By: #### 5 8410-2 ####[facility] LABORATORYCLIA [id number] [address] STATES [facility] Hematocrit (Bld) [Volume fraction] 31.1 % Low 39.0-51.0 [facility] Comment on above: Order Comment: Speci men Type: BLOOD SPECIMENOrdering Facility: [facility] Address: [address] [place] [address] Performed By: #### 5 8410-2 ####[facility] LABORATORYCLIA [id number] [address] Hemoglobin (Bld) [Mass/Vol] 9.5 g/dL Low 13.0-17.0 [facility] Comment on above: Order Comment: Speci men Type: BLOOD SPECIMENOrdering Facility: [facility] Address: [address] [place] [address] Performed By: #### 5 8410-2 ####[facility] LABORATORYCLIA [id number] [address] MCH (RBC) [Entitic mass] 28.1 pg Normal 26.0-34.0 [facility] Comment on above: Order Comment: Speci men Type: BLOOD SPECIMENOrdering Facility: [facility] Address: [address] [place] [address] Performed By: #### 5 8410-2 ####[facility] LABORATORYCLIA [id number] [address] [place] [facility] MCHC (RBC) [Mass/Vol] 30.5 g/dL Normal 30.5-36.0 [facility] Comment on above: Order Comment: Speci men Type: BLOOD SPECIMENOrdering Facility: [facility] Address: [address] [place] [address] Performed By: #### 5 8410-2 ####[facility] LABORATORYCLIA [id number] [address] MCV (RBC) [Entitic vol] 92.0 fL Normal 80.0-100.0 [facility] Comment on above: Order Comment: Speci men Type: BLOOD SPECIMENOrdering Facility: [facility] Address: [address] [place] [address] Performed By: #### 5 8410-2 ####[facility] LABORATORYCLIA [id number] [address] Nucleated RBC (Bld) [#/Vol] 10*3/uL Normal <0.01 [facility] Comment on above: Order Comment: Speci men Type: BLOOD SPECIMENOrdering Facility: [facility] Address: [address] [place] [address] Performed By: #### 5 8410-2 ####[facility] LABORATORYCLIA [id number] [address] Platelet mean volume (Bld) [Entitic vol] 11.0 fL Normal 9.0-12.7 [facility] Comment on above: Order Comment: Speci men Type: BLOOD SPECIMENOrdering Facility: [facility] Address: [address] [place] [address] Performed By: #### 5 8410-2 ####[facility] LABORATORYCLIA [id number] [address] [place] Platelets (Bld) [#/Vol] 361 10*3/uL Normal 150-400 [facility] Comment on above: Order Comment: Speci men Type: BLOOD SPECIMENOrdering Facility: [facility] Address: [address] [place] [address] Performed By: #### 5 8410-2 ####[facility] LABORATORYCLIA [id number] [address] [place] RBC (Bld) [#/Vol] 3.38 10*6/uL Low 4.20-6.00 [facility] Comment on above: Order Comment: Speci men Type: BLOOD SPECIMENOrdering Facility: [facility] Address: [address] [place] [address] Performed By: #### 5 8410-2 ####[facility]ORATORYCLIA [id number] [address] [place] WBC (Bld) [#/Vol] 9.02 10*3/uL Normal 3.70-11.00 [facility] Comment on above: Order Comment: Speci men Type: BLOOD SPECIMENOrdering Facility: [facility] Address: [address] [place] [address] Performed By: #### 5 8410-2 ####[facility] LABORATORYCLIA [id number] [address] [facility] CONSULT PROGon 06-23-2021 CONSULT PROG Normal [facility] CONSULT PROG Normal [facility] Magnesium SerPl-mCncon 06-23 Magnesium [Mass/Vol] 2.4 mg/dL High 1.7-2.3 [facility] Comment on above: Order Comment: Speci men Type: BLOOD SPECIMENOrdering Facility: [facility] Address: [address] [place] [address] Performed By: #### 1 9123-9, 09252-5 ####[facility] LABORATORYCLIA [id number] [place] [address] [place] THERAPY NTon 06-23-2021 THERAPY NT Normal [facility] Vancomycin random [Mass/Vol] on 06-23-2021 Vancomycin [Mass/Vol] 22.8 ug/mL High 10.0-20.0 [facility] Comment on above: Order Comment: Speci men Type: BLOOD SPECIMENOrdering Facility: [facility] Address: [address] [place] [address] Result Comment: Refe rence ranges and high/low indicator flags are provided as general guidelines only. The treating physician must determine appropriate target levels/dosing based on the specific clinical situation. Performed By: #### 4 091-5 ####[facility] LABORATORYCLIA [id number] [place] [address] [place] XR MOD BARIUM SWALLOW W SPEE Lore 06-23-2021 XR MOD BARIUM SWALLOW W SPEECH Normal [facility] Basic metabolic 2000 panelon 06-22-2021 Anion gap [Moles/Vol] 6 mmol/L Low 9-18 [facility] Comment on above: Order Comment: Speci men Type: BLOOD SPECIMENOrdering Facility: [facility] Address: [address] [place] [address] Performed By: #### 2 4321-2, 97034-0 ####[facility] LABORATORYCLIA [id number] [place] [address] [place] Calcium [Mass/Vol] 8.5 mg/dL Normal 8.5-10.2 [facility] Comment on above: Order Comment: Speci men Type: BLOOD SPECIMENOrdering Facility: [facility] Address: [address] [address] Performed By: #### 2 4321-2, ####[facility] LABORATORYCLIA [id number] [place] [address] [place] Chloride [Moles/Vol] 105 mmol/L Normal 97-105 [facility] Comment on above: Order Comment: Speci men Type: BLOOD SPECIMENOrdering Facility: [facility] Address: [address] [place] [address] Performed By: #### 2 4321-2, ####[facility] LABORATORYCLIA [id number] [place] [address] [place] CO2 [Moles/Vol] 26 mmol/L Normal 22-30 [facility] Comment on above: Order Comment: Speci men Type: BLOOD SPECIMENOrdering Facility: [facility] Address: [address] [place] [address] Performed By: #### 2 4320-2, ####[facility] LABORATORYCLIA [id number] [place] [address] [place] Creatinine [Mass/Vol] 0.56 mg/dL Low 0.73-1.22 [facility] Comment on above: Order Comment: Speci men Type: BLOOD SPECIMENOrdering Facility: [facility] Address: [address] [place] [address] Performed By: #### 2 4320-2, ####[facility] LABORATORYCLIA [id number] [place] [address] [place] GFR/1.73 sq M.predicted MDRD (S/P/Bld) [Vol rate/Area] mL/min/{1.73_m2} Normal [facility] Comment on above: Order Comment: Speci men Type: BLOOD SPECIMENOrdering Facility: [facility] Address: [address] [place] [address] Result Comment: >60e GFR (Estimated GFR) Units of measure: mL/min/1.73 meters squaredeGFR is derived from the reexpressed MDRD Study equation using the following parameters: serum creatinine, age, gender and race. The creatinine assay has been calibrated to be traceable to IDMS. An eGFR <60 mL/min/1.73m2 for >3 months is consistent with chronic kidney disease. Refer to KDOQI guidelines for clinical interpretation. In patients with unstable renal function, e.g. those with acute kidney injury, the eGFR may not accurately reflect actual GFR. Performed By: #### 2 4320-06, ####[facility] [id number] [place] [address] [place] Glucose [Mass/Vol] 120 mg/dL High 74-99 [facility] Comment on above: Order Comment: Shira feldman Type: BLOOD SPECIMENOrdering Facility: [facility] Address: [address] [place], [place] [address] Result Comment: The [place] [employer] (ADA) provides guidance for cutoff values for fasting glucose and random glucose. The ADA defines fasting as no caloric intake for at least 8 hours. Fasting plasma glucose results between 100 to 125 mg/dL indicate increased risk for diabetes (prediabetes).Fasting plasma glucose results greater than or equal to 126 mg/dL meet the criteria for diagnosis of diabetes. In the absence of unequivocal hyperglycemia, results should be confirmed by repeat testing. In a patient with classic symptoms of hyperglycemia or hyperglycemic crisis, random plasma glucose results greater than or equal to 200 mg/dL meet the criteria for diagnosis of diabetes.Reference: Standards of Medical Care in Diabetes 2016, [place] [employer]. Diabetes Care. 2016.39(Suppl 1). Performed By: #### 2 4320-06, ####[facility] LABORATORYCLIA [id number] [place] [id number] [place] Potassium [Moles/Vol] 4.0 mmol/L Normal 3.7-5.1 [facility] Comment on above: Order Comment: Shira feldman Type: BLOOD SPECIMENOrdering Facility: [facility] Address: [address] [place] [address] Performed By: #### 2 4320-06, ####[facility] LABORATORYCLIA [id number] [place] [address] [place] Sodium [Moles/Vol] 137 mmol/L Normal 136-144 [facility] Comment on above: Order Comment: Speci men Type: BLOOD SPECIMENOrdering Facility: [facility] Address: [address] [place] [address] Performed By: #### 2 432-2, ####[facility]ORATORYCLIA [id number] [address] [place] Urea nitrogen [Mass/Vol] 25 mg/dL High 9-24 [facility] Comment on above: Order Comment: Speci men Type: BLOOD SPECIMENOrdering Facility: [facility] Address: [address] [place] [address] Performed By: #### 2 4320-06, ####[facility] LABORATORYCLIA [id number] [address] [place] CASE MANAGEMon 06-22-2021 CASE MANAGEM Normal [facility] CBC panel Auto (Bld)on 06-22 Erythrocyte distribution width (RBC) [Ratio] 16.0 % High 11.5-15.0 [facility] Comment on above: Order Comment: Speci men Type: BLOOD SPECIMENOrdering Facility: [facility] Address: [address] [place] [address] Performed By: #### 5 8410-2 ####[facility] LABORATORYCLIA [id number] [address] STATES OF [facility] Hematocrit (Bld) [Volume fraction] 30.5 % Low 39.0-51.0 [facility] Comment on above: Order Comment: Speci men Type: BLOOD SPECIMENOrdering Facility: [facility] Address: [address] [place] [address] Performed By: #### 5 8410-2 ####[facility]ORATORYCLIA [id number] [address] [place] Hemoglobin (Bld) [Mass/Vol] 9.3 g/dL Low 13.0-17.0 [facility] Comment on above: Order Comment: Speci men Type: BLOOD SPECIMENOrdering Facility: [facility] Address: [address] [place] [address] Performed By: #### 5 8410-2 ####[facility] LABORATORYCLIA [id number] [address] MCH (RBC) [Entitic mass] 28.4 pg Normal 26.0-34.0 [facility] Comment on above: Order Comment: Speci men Type: BLOOD SPECIMENOrdering Facility: [facility] Address: [address] [place] [address] Performed By: #### 5 8410-2 ####[facility]ORATORYCLIA [id number] [address] [place] [facility] MCHC (RBC) [Mass/Vol] 30.5 g/dL Normal 30.5-36.0 [facility] Comment on above: Order Comment: Speci men Type: BLOOD SPECIMENOrdering Facility: [facility] Address: [address] [place] [address] Performed By: #### 5 8410-2 ####[facility] LABORATORYCLIA [id number] [address] MCV (RBC) [Entitic vol] 93.3 fL Normal 80.0-100.0 [facility] Comment on above: Order Comment: Speci men Type: BLOOD SPECIMENOrdering Facility: [facility] Address: [address] [place] [address] Performed By: #### 5 8410-2 ####[facility]ORATORYCLIA [id number] [address] Nucleated RBC (Bld) [#/Vol] 10*3/uL Normal <0.01 [facility] Comment on above: Order Comment: Speci men Type: BLOOD SPECIMENOrdering Facility: [facility] Address: [address] [place] [address] Performed By: #### 5 8410-2 ####[facility]ORATORYCLIA [id number] [address] STATES [facility] Platelet mean volume (Bld) [Entitic vol] 11.5 fL Normal 9.0-12.7 [facility] Comment on above: Order Comment: Speci men Type: BLOOD SPECIMENOrdering Facility: [facility] Address: [address] [place] [address] Performed By: #### 5 8410-2 ####[facility]ORATORYCLIA [id number] [address] [place] Platelets (Bld) [#/Vol] 346 10*3/uL Normal 150-400 [facility] Comment on above: Order Comment: Speci men Type: BLOOD SPECIMENOrdering Facility: [facility] Address: [address] [place] [address] Performed By: #### 5 8410-2 ####[facility]ORATORYCLIA [id number] [address] [place] RBC (Bld) [#/Vol] 3.27 10*6/uL Low 4.20-6.00 [facility] Comment on above: Order Comment: Speci men Type: BLOOD SPECIMENOrdering Facility: [facility] Address: [address] [place] [address] Performed By: #### 5 8410-2 ####[facility] LABORATORYCLIA [id number] [place] [address] [place] WBC (Bld) [#/Vol] 9.44 10*3/uL Normal 3.70-11.00 [facility] Comment on above: Order Comment: Speci men Type: BLOOD SPECIMENOrdering Facility: [facility] Address: [address] [place] [address] Performed By: #### 5 8410-2 ####[facility] LABORATORYCLIA [id number] [address] [place] HEMOGLOBIN (HGB)on 2 Hemoglobin (Bld) [Mass/Vol] 9.7 g/dL Low 13.0-17.0 [facility] Comment on above: Order Comment: Speci men Type: BLOOD SPECIMENOrdering Facility: [facility] Address: [address] [place] [address] Performed By: #### H GB ####[facility] LABORATORYCLIA [id number] [address] Magnesium SerPl-mCncon 06-22 Magnesium [Mass/Vol] 2.4 mg/dL High 1.7-2.3 [facility] Comment on above: Order Comment: Speci men Type: BLOOD SPECIMENOrdering Facility: [facility] Address: [address] [place] [address] Performed By: #### 2 4321-2, ####[facility] LABORATORYCLIA [id number] [address] THERAPY NTon 06-22-2021 THERAPY NT Normal [facility] THERAPY NT Normal [facility] aPTT PPPon 06-22-2021 aPTT Coag (PPP) [Time] 62.3 s High 23.0-32.4 [facility] Comment on above: Order Comment: Speci men Type: BLOOD SPECIMENOrdering Facility: [facility] Address: [address] [place] [address] Performed By: #### 1 4979-9 ####[facility]ORATORYCLIA [id number] [address] [place] ALLIED HEALTHon 06-21-2021 ALLIED HEALTH Normal [facility] Basic metabolic 2000 panelon 06-21-2021 Anion gap [Moles/Vol] 8 mmol/L Low 9-18 [facility] Comment on above: Order Comment: Speci men Type: BLOOD SPECIMENOrdering Facility: [facility] Address: [address] [place] [address] Performed By: #### 2 4321-2, ####[facility]ORATORYCLIA [id number] [place] [address] [place] Calcium [Mass/Vol] 8.2 mg/dL Low 8.5-10.2 [facility] Comment on above: Order Comment: Speci men Type: BLOOD SPECIMENOrdering Facility: [facility] Address: [address] [place] [address] Performed By: #### 2 4321-2, ####[facility]ORATORYCLIA [id number] [place] [address] [place] Chloride [Moles/Vol] 108 mmol/L High 97-105 [facility] Comment on above: Order Comment: Speci men Type: BLOOD SPECIMENOrdering Facility: [facility] Address: [address] [place] [address] Performed By: #### 2 432-2, ####[facility]ORATORYCLIA [id number] [place] [address] [place] CO2 [Moles/Vol] 24 mmol/L Normal 22-30 [facility] Comment on above: Order Comment: Speci men Type: BLOOD SPECIMENOrdering Facility: [facility] Address: [address] [place] [address] Performed By: #### 2 4320-2, ####[facility]ORATORYCLIA [id number] [place] [address] [place] Creatinine [Mass/Vol] 0.61 mg/dL Low 0.73-1.22 [facility] Comment on above: Order Comment: Speci men Type: BLOOD SPECIMENOrdering Facility: [facility] Address: [address] [place] [address] Performed By: #### 2 4320-2, ####[facility]ORATORYCLIA [id number] [address] [place] GFR/1.73 sq M.predicted MDRD (S/P/Bld) [Vol rate/Area] mL/min/{1.73_m2} Normal [facility] Comment on above: Order Comment: Speci men Type: BLOOD SPECIMENOrdering Facility: [facility] Address: [address] [place], [place] [phone] Result Comment: >60e GFR (Estimated GFR) Units of measure: mL/min/1.73 meters squaredeGFR is derived from the reexpressed MDRD Study equation using the following parameters: serum creatinine, age, gender and race. The creatinine assay has been calibrated to be traceable to IDMS. An eGFR <60 mL/min/1.73m2 for >3 months is consistent with chronic kidney disease. Refer to KDOQI guidelines for clinical interpretation. In patients with unstable renal function, e.g. those with acute kidney injury, the eGFR may not accurately reflect actual GFR. Performed By: #### 2 4321-2, 73016-2 ####[facility] LABORATORYCLIA [id number] [place] [address] [place] Glucose [Mass/Vol] 211 mg/dL High 74-99 [facility] Comment on above: Order Comment: Shira feldman Type: BLOOD SPECIMENOrdering Facility: [facility] Address: [address] [place], [place] [address] Result Comment: The [place] [employer] (ADA) provides guidance for cutoff values for fasting glucose and random glucose. The ADA defines fasting as no caloric intake for at least 8 hours. Fasting plasma glucose results between 100 to 125 mg/dL indicate increased risk for diabetes (prediabetes).Fasting plasma glucose results greater than or equal to 126 mg/dL meet the criteria for diagnosis of diabetes. In the absence of unequivocal hyperglycemia, results should be confirmed by repeat testing. In a patient with classic symptoms of hyperglycemia or hyperglycemic crisis, random plasma glucose results greater than or equal to 200 mg/dL meet the criteria for diagnosis of diabetes.Reference: Standards of Medical Care in Diabetes 2016, [place] [employer]. Diabetes Care. 2016.39(Suppl 1). Performed By: #### 2 4321-2, 62348-6 ####[facility] LABORATORYCLIA [id number] [place] [address] [place] Potassium [Moles/Vol] 4.3 mmol/L Normal 3.7-5.1 [facility] Comment on above: Order Comment: Speci men Type: BLOOD SPECIMENOrdering Facility: [facility] Address: [address] [place] [address] Performed By: #### 2 4321-2, ####[facility]ORATORYCLIA [id number] [address] Sodium [Moles/Vol] 140 mmol/L Normal 136-144 [facility] Comment on above: Order Comment: Speci men Type: BLOOD SPECIMENOrdering Facility: [facility] Address: [address] [place] [address] Performed By: #### 2 4321-2, ####[facility]ORATORYCLIA [id number] [address] [place] Urea nitrogen [Mass/Vol] 26 mg/dL High 9-24 [facility] Comment on above: Order Comment: Speci men Type: BLOOD SPECIMENOrdering Facility: [facility] Address: [address] [place] [address] Performed By: #### 2 432-2, ####[facility]ORATORYCLIA [id number] [address] [place] [facility] CBC panel Auto (Bld)on 06-21 Erythrocyte distribution width (RBC) [Ratio] 16.1 % High 11.5-15.0 [facility] Comment on above: Order Comment: Speci men Type: BLOOD SPECIMENOrdering Facility: [facility] Address: [address] [place] [address] Performed By: #### 5 8410-2 ####[facility]ORATORYCLIA [id number] [address] Hematocrit (Bld) [Volume fraction] 29.7 % Low 39.0-51.0 [facility] Comment on above: Order Comment: Speci men Type: BLOOD SPECIMENOrdering Facility: [facility] Address: [address] [place] [address] Performed By: #### 5 8410-2 ####[facility]ORATORYCLIA [id number] [address] [place] [facility] Hemoglobin (Bld) [Mass/Vol] 9.2 g/dL Low 13.0-17.0 [facility] Comment on above: Order Comment: Speci men Type: BLOOD SPECIMENOrdering Facility: [facility] Address: [address] [place] [address] Performed By: #### 5 8410-2 ####[facility]ORATORYCLIA [id number] [address] MCH (RBC) [Entitic mass] 28.8 pg Normal 26.0-34.0 [facility] Comment on above: Order Comment: Speci men Type: BLOOD SPECIMENOrdering Facility: [facility] Address: [address] [place] [address] Performed By: #### 5 8410-2 ####[facility]ORATORYCLIA [id number] [address] MCHC (RBC) [Mass/Vol] 31.0 g/dL Normal 30.5-36.0 [facility] Comment on above: Order Comment: Speci men Type: BLOOD SPECIMENOrdering Facility: [facility] Address: [address] [place] [address] Performed By: #### 5 8410-2 ####[facility]ORATORYCLIA [id number] [address] STATES [facility] MCV (RBC) [Entitic vol] 93.1 fL Normal 80.0-100.0 [facility] Comment on above: Order Comment: Speci men Type: BLOOD SPECIMENOrdering Facility: [facility] Address: [address] [place] [address] Performed By: #### 5 8410-2 ####[facility]ORATORYCLIA [id number] [address] Nucleated RBC (Bld) [#/Vol] 10*3/uL Normal <0.01 [facility] Comment on above: Order Comment: Speci men Type: BLOOD SPECIMENOrdering Facility: [facility] Address: [address] [place] [address] Performed By: #### 5 8410-2 ####[facility] LABORATORYCLIA [id number] [address] Platelet mean volume (Bld) [Entitic vol] 11.6 fL Normal 9.0-12.7 [facility] Comment on above: Order Comment: Speci men Type: BLOOD SPECIMENOrdering Facility: [facility] Address: [address] [place] [address] Performed By: #### 5 8410-2 ####[facility]ORATORYCLIA [id number] [address] [place] Platelets (Bld) [#/Vol] 347 10*3/uL Normal 150-400 [facility] Comment on above: Order Comment: Speci men Type: BLOOD SPECIMENOrdering Facility: [facility] Address: [address] [place] [address] Performed By: #### 5 8410-2 ####[facility] LABORATORYCLIA [id number] [address] [place] RBC (Bld) [#/Vol] 3.19 10*6/uL Low 4.20-6.00 [facility] Comment on above: Order Comment: Speci men Type: BLOOD SPECIMENOrdering Facility: [facility] Address: [address] [place] [address] Performed By: #### 5 8410-2 ####[facility] LABORATORYCLIA [id number] [address] [place] WBC (Bld) [#/Vol] 10.29 10*3/uL Normal 3.70-11.00 [facility] Comment on above: Order Comment: Speci men Type: BLOOD SPECIMENOrdering Facility: [facility] Address: [address] [place] [address] Performed By: #### 5 8410-2 ####[facility] LABORATORYCLIA [id number] [address] [place] CONSULT PROGon 06-21-2021 CONSULT PROG Normal [facility] CONSULT PROG Normal [facility] Magnesium SerPl-mCncon 06-21 Magnesium [Mass/Vol] 2.5 mg/dL High 1.7-2.3 [facility] Comment on above: Order Comment: Speci men Type: BLOOD SPECIMENOrdering Facility: [facility] Address: [address] [place] [address] Performed By: #### 2 4321-2, 77409-9 ####[facility] LABORATORYCLIA [id number] [address] OF [facility] NUTRITIONon 06-21-2021 NUTRITION Normal [facility] XR CHEST 1V FRONTALon 2021 XR CHEST 1V FRONTAL Normal [facility] aPTT PPPon 06-21-2021 aPTT Coag (PPP) [Time] 68.5 s High 23.0-32.4 [facility] Comment on above: Order Comment: Speci men Type: BLOOD SPECIMENOrdering Facility: [facility] Address: [address] [place] [address] Performed By: #### 1 4979-9 ####[facility] LABORATORYCLIA [id number] [address] aPTT Coag (PPP) [Time] 57.8 s High 23.0-32.4 [facility] Comment on above: Order Comment: Speci men Type: BLOOD SPECIMENOrdering Facility: [facility] Address: [address] [place] [address] Performed By: #### 1 4979-9 ####[facility] LABORATORYCLIA [id number] [address] [place] Basic metabolic 2000 panelon 06-20-2021 Anion gap [Moles/Vol] 9 mmol/L Normal 9-18 [facility] Comment on above: Order Comment: Speci men Type: BLOOD SPECIMENOrdering Facility: [facility] Address: [address] [place], [place] [address] Performed By: #### 2 4320-2, ####[facility] LABORATORYCLIA [id number] [place] [address] [place] Calcium [Mass/Vol] 8.3 mg/dL Low 8.5-10.2 [facility] Comment on above: Order Comment: Speci men Type: BLOOD SPECIMENOrdering Facility: [facility] Address: [address] [place] [address] Performed By: #### 2 4320-2, ####[facility] LABORATORYCLIA [id number] [place] [address] [place] Chloride [Moles/Vol] 111 mmol/L High 97-105 [facility] Comment on above: Order Comment: Speci men Type: BLOOD SPECIMENOrdering Facility: [facility] Address: [address] [place] [address] Performed By: #### 2 4320-06, ####[facility] LABORATORYCLIA [id number] [place] [address] [place] CO2 [Moles/Vol] 24 mmol/L Normal 22-30 [facility] Comment on above: Order Comment: Speci men Type: BLOOD SPECIMENOrdering Facility: [facility] Address: [address] [place] [address] Performed By: #### 2 2, ####[facility] LABORATORYCLIA [id number] [place] [address] [place] Creatinine [Mass/Vol] 0.64 mg/dL Low 0.73-1.22 [facility] Comment on above: Order Comment: Speci men Type: BLOOD SPECIMENOrdering Facility: [facility] Address: [address] [place] [address] Performed By: #### 2 2, ####[facility]ORATORYCLIA [id number] [place] [address] [place] GFR/1.73 sq M.predicted MDRD (S/P/Bld) [Vol rate/Area] mL/min/{1.73_m2} Normal [facility] Comment on above: Order Comment: Shira feldman Type: BLOOD SPECIMENOrdering Facility: [facility] Address: [address] [place] [address] Result Comment: >60e GFR (Estimated GFR) Units of measure: mL/min/1.73 meters squaredeGFR is derived from the reexpressed MDRD Study equation using the following parameters: serum creatinine, age, gender and race. The creatinine assay has been calibrated to be traceable to IDMS. An eGFR <60 mL/min/1.73m2 for >3 months is consistent with chronic kidney disease. Refer to KDOQI guidelines for clinical interpretation. In patients with unstable renal function, e.g. those with acute kidney injury, the eGFR may not accurately reflect actual GFR. Performed By: #### 2 4321-2, 79426-5 ####[facility] LABORATORYCLIA [id number] [place] [address] [place] Glucose [Mass/Vol] 114 mg/dL High 74-99 [facility] Comment on above: Order Comment: Shira feldman Type: BLOOD SPECIMENOrdering Facility: [facility] Address: [address] [place], [place] [phone] Result Comment: The [place] [employer] (ADA) provides guidance for cutoff values for fasting glucose and random glucose. The ADA defines fasting as no caloric intake for at least 8 hours. Fasting plasma glucose results between 100 to 125 mg/dL indicate increased risk for diabetes (prediabetes).Fasting plasma glucose results greater than or equal to 126 mg/dL meet the criteria for diagnosis of diabetes. In the absence of unequivocal hyperglycemia, results should be confirmed by repeat testing. In a patient with classic symptoms of hyperglycemia or hyperglycemic crisis, random plasma glucose results greater than or equal to 200 mg/dL meet the criteria for diagnosis of diabetes.Reference: Standards of Medical Care in Diabetes 2016, [place] [employer]. Diabetes Care. 2016.39(Suppl 1). Performed By: #### 2 4321-2, 31080-5 ####[facility] LABORATORYCLIA [id number] [place] [address] [place] Potassium [Moles/Vol] 4.1 mmol/L Normal 3.7-5.1 [facility] Comment on above: Order Comment: Speci men Type: BLOOD SPECIMENOrdering Facility: [facility] Address: [address] [place] [address] Performed By: #### 2 4321-2, ####[facility] LABORATORYCLIA [id number] [address] [place] Sodium [Moles/Vol] 144 mmol/L Normal 136-144 [facility] Comment on above: Order Comment: Speci men Type: BLOOD SPECIMENOrdering Facility: [facility] Address: [address] [place] [address] Performed By: #### 2 4321-2, ####[facility]ORATORYCLIA [id number] [address] STATES [facility] Urea nitrogen [Mass/Vol] 27 mg/dL High 9-24 [facility] Comment on above: Order Comment: Speci men Type: BLOOD SPECIMENOrdering Facility: [facility] Address: [address] [place] [address] Performed By: #### 2 4321-2, ####[facility]ORATORYCLIA [id number] [address] [place] CASE MANAGEMon 06-20-2021 CASE MANAGEM Normal [facility] CBC panel Auto (Bld)on 06-20 Erythrocyte distribution width (RBC) [Ratio] 15.9 % High 11.5-15.0 [facility] Comment on above: Order Comment: Speci men Type: BLOOD SPECIMENOrdering Facility: [facility] Address: [address] [place] [address] Performed By: #### 5 8410-2 ####[facility] LABORATORYCLIA [id number] [address] [place] Hematocrit (Bld) [Volume fraction] 31.0 % Low 39.0-51.0 [facility] Comment on above: Order Comment: Speci men Type: BLOOD SPECIMENOrdering Facility: [facility] Address: [address] [place] [address] Performed By: #### 5 8410-2 ####[facility]ORATORYCLIA [id number] [address] OF [facility] Hemoglobin (Bld) [Mass/Vol] 9.2 g/dL Low 13.0-17.0 [facility] Comment on above: Order Comment: Speci men Type: BLOOD SPECIMENOrdering Facility: [facility] Address: [address] [place] [address] Performed By: #### 5 8410-2 ####[facility]ORATORYCLIA [id number] [address] [place] [facility] MCH (RBC) [Entitic mass] 27.4 pg Normal 26.0-34.0 [facility] Comment on above: Order Comment: Speci men Type: BLOOD SPECIMENOrdering Facility: [facility] Address: [address] [place] [address] Performed By: #### 5 8410-2 ####[facility]ORATORYCLIA [id number] [address] MCHC (RBC) [Mass/Vol] 29.7 g/dL Low 30.5-36.0 [facility] Comment on above: Order Comment: Speci men Type: BLOOD SPECIMENOrdering Facility: [facility] Address: [address] [place] [address] Performed By: #### 5 8410-2 ####[facility]ORATORYCLIA [id number] [address] [place] MCV (RBC) [Entitic vol] 92.3 fL Normal 80.0-100.0 [facility] Comment on above: Order Comment: Speci men Type: BLOOD SPECIMENOrdering Facility: [facility] Address: [address] [place] [address] Performed By: #### 5 8410-2 ####[facility] LABORATORYCLIA [id number] [place] [address] [place] Nucleated RBC (Bld) [#/Vol] 10*3/uL Normal <0.01 [facility] Comment on above: Order Comment: Speci men Type: BLOOD SPECIMENOrdering Facility: [facility] Address: [address] [place] [address] Performed By: #### 5 8410-2 ####[facility]ORATORYCLIA [id number] [address] [place] Platelet mean volume (Bld) [Entitic vol] 11.5 fL Normal 9.0-12.7 [facility] Comment on above: Order Comment: Speci men Type: BLOOD SPECIMENOrdering Facility: [facility] Address: [address] [place] [address] Performed By: #### 5 8410-2 ####[facility]ORATORYCLIA [id number] [address] [place] Platelets (Bld) [#/Vol] 343 10*3/uL Normal 150-400 [facility] Comment on above: Order Comment: Speci men Type: BLOOD SPECIMENOrdering Facility: [facility] Address: [address] [place] [address] Performed By: #### 5 8410-2 ####[facility]ORATORYCLIA [id number] [place] [address] [place] RBC (Bld) [#/Vol] 3.36 10*6/uL Low 4.20-6.00 [facility] Comment on above: Order Comment: Speci men Type: BLOOD SPECIMENOrdering Facility: [facility] Address: [address] [place] [address] Performed By: #### 5 8410-2 ####[facility]ORATORYCLIA [id number] [address] [place] WBC (Bld) [#/Vol] 10.71 10*3/uL Normal 3.70-11.00 [facility] Comment on above: Order Comment: Speci men Type: BLOOD SPECIMENOrdering Facility: [facility] Address: [address] [place] [address] Performed By: #### 5 8410-2 ####[facility]ORATORYCLIA [id number] [address] CONSULT PROGon 06-20-2021 CONSULT PROG Normal [facility] HEMOGLOBIN (HGB)on Hemoglobin (Bld) [Mass/Vol] 9.7 g/dL Low 13.0-17.0 [facility] Comment on above: Order Comment: Speci men Type: BLOOD SPECIMENOrdering Facility: [facility] Address: [address] [place] [address] Performed By: #### H GB ####[facility]ORATORYCLIA [id number] [address] Magnesium SerPl-mCncon 06-20 Magnesium [Mass/Vol] 2.5 mg/dL High 1.7-2.3 [facility] Comment on above: Order Comment: Speci men Type: BLOOD SPECIMENOrdering Facility: [facility] Address: [address] [place] [address] Performed By: #### 2 4321-2, 78191-3 ####[facility]ORATORYCLIA [id number] [address] [place] NURSING PROGon 06-20-2021 NURSING PROG Normal [facility] THERAPY NTon 06-20-2021 THERAPY NT Normal [facility] aPTT PPPon 06-20-2021 aPTT Coag (PPP) [Time] 93.5 s High 23.0-32.4 [facility] Comment on above: Order Comment: Speci men Type: BLOOD SPECIMENOrdering Facility: [facility] Address: [address] [place] [address] Performed By: #### 1 4979-9 ####[facility]ORATORYCLIA [id number] [address] aPTT Coag (PPP) [Time] 47.1 s High 23.0-32.4 [facility] Comment on above: Order Comment: Speci men Type: BLOOD SPECIMENOrdering Facility: [facility] Address: [address] [place] [address] Performed By: #### 1 4979-9 ####[facility]ORATORYCLIA [id number] [place] [address] [place] Basic metabolic 2000 panelon 06-19-2021 Anion gap [Moles/Vol] 7 mmol/L Low 9-18 [facility] Comment on above: Order Comment: Speci men Type: BLOOD SPECIMENOrdering Facility: [facility] Address: [address] [place] [address] Performed By: #### 2 4321-2 ####[facility]ORATORYCLIA [id number] [place] [address] [place] Calcium [Mass/Vol] 8.1 mg/dL Low 8.5-10.2 [facility] Comment on above: Order Comment: Speci men Type: BLOOD SPECIMENOrdering Facility: [facility] Address: [address] [place] [address] Performed By: #### 2 4321-2 ####[facility]ORATORYCLIA [id number] [address] [place] Chloride [Moles/Vol] 111 mmol/L High 97-105 [facility] Comment on above: Order Comment: Speci men Type: BLOOD SPECIMENOrdering Facility: [facility] Address: [address] [place] [address] Performed By: #### 2 4321-2 ####[facility]ORATORYCLIA [id number] [place] [address] [place] CO2 [Moles/Vol] 24 mmol/L Normal 22-30 [facility] Comment on above: Order Comment: Speci men Type: BLOOD SPECIMENOrdering Facility: [facility] Address: [address] [place] [address] Performed By: #### 2 4321-2 ####[facility] LABORATORYCLIA [id number] [place] [id number] [place] Creatinine [Mass/Vol] 0.71 mg/dL Low 0.73-1.22 [facility] Comment on above: Order Comment: Johncara feldman Type: BLOOD SPECIMENOrdering Facility: [facility] Address: [address] [place], [place] [phone] Performed By: #### 2 4321-2 ####[facility]ORATORYCLIA [id number] [place] [id number] [place] GFR/1.73 sq M.predicted MDRD (S/P/Bld) [Vol rate/Area] mL/min/{1.73_m2} Normal [facility] Comment on above: Order Comment: Johncara feldman Type: BLOOD SPECIMENOrdering Facility: [facility] Address: [address] [place] [address] Result Comment: >60e GFR (Estimated GFR) Units of measure: mL/min/1.73 meters squaredeGFR is derived from the reexpressed MDRD Study equation using the following parameters: serum creatinine, age, gender and race. The creatinine assay has been calibrated to be traceable to IDMS. An eGFR <60 mL/min/1.73m2 for >3 months is consistent with chronic kidney disease. Refer to KDOQI guidelines for clinical interpretation. In patients with unstable renal function, e.g. those with acute kidney injury, the eGFR may not accurately reflect actual GFR. Performed By: #### 2 4321-2 ####[facility]ORATORYCLIA [id number] [address] [place] Glucose [Mass/Vol] 110 mg/dL High 74-99 [facility] Comment on above: Order Comment: Johncara feldman Type: BLOOD SPECIMENOrdering Facility: [facility] Address: [address] [place] [phone] Result Comment: The [place] [employer] (ADA) provides guidance for cutoff values for fasting glucose and random glucose. The ADA defines fasting as no caloric intake for at least 8 hours. Fasting plasma glucose results between 100 to 125 mg/dL indicate increased risk for diabetes (prediabetes).Fasting plasma glucose results greater than or equal to 126 mg/dL meet the criteria for diagnosis of diabetes. In the absence of unequivocal hyperglycemia, results should be confirmed by repeat testing. In a patient with classic symptoms of hyperglycemia or hyperglycemic crisis, random plasma glucose results greater than or equal to 200 mg/dL meet the criteria for diagnosis of diabetes.Reference: Standards of Medical Care in Diabetes 2016, [place] [employer]. Diabetes Care. 2016.39(Suppl 1). Performed By: #### 2 4321-2 ####[facility]ORATORYCLIA [id number] [address] [place] [facility] Potassium [Moles/Vol] 3.7 mmol/L Normal 3.7-5.1 [facility] Comment on above: Order Comment: Speci men Type: BLOOD SPECIMENOrdering Facility: [facility] Address: [address] [place] [address] Performed By: #### 2 4321-2 ####[facility]ORATORYCLIA [id number] [address] Sodium [Moles/Vol] 142 mmol/L Normal 136-144 [facility] Comment on above: Order Comment: Speci men Type: BLOOD SPECIMENOrdering Facility: [facility] Address: [address] [place] [address] Performed By: #### 2 4321-2 ####[facility]ORATORYCLIA [id number] [address] STATES [facility] Urea nitrogen [Mass/Vol] 26 mg/dL High 9-24 [facility] Comment on above: Order Comment: Speci men Type: BLOOD SPECIMENOrdering Facility: [facility] Address: [address] [place] [address] Performed By: #### 2 4321-2 ####[facility]ORATORYCLIA [id number] [address] CBC panel Auto (Bld)on 06-19 Erythrocyte distribution width (RBC) [Ratio] 15.7 % High 11.5-15.0 [facility] Comment on above: Order Comment: Speci men Type: BLOOD SPECIMENOrdering Facility: [facility] Address: [address] [place] [address] Performed By: #### 5 8410-2 ####[facility]ORATORYCLIA [id number] [address] Hematocrit (Bld) [Volume fraction] 30.9 % Low 39.0-51.0 [facility] Comment on above: Order Comment: Speci men Type: BLOOD SPECIMENOrdering Facility: [facility] Address: [address] [place] [address] Performed By: #### 5 8410-2 ####[facility]ORATORYCLIA [id number] [address] [place] [facility] Hemoglobin (Bld) [Mass/Vol] 9.5 g/dL Low 13.0-17.0 [facility] Comment on above: Order Comment: Speci men Type: BLOOD SPECIMENOrdering Facility: [facility] Address: [address] [place] [address] Performed By: #### 5 8410-2 ####[facility]ORATORYCLIA [id number] [address] MCH (RBC) [Entitic mass] 28.4 pg Normal 26.0-34.0 [facility] Comment on above: Order Comment: Speci men Type: BLOOD SPECIMENOrdering Facility: [facility] Address: [address] [place] [address] Performed By: #### 5 8410-2 ####[facility]ORATORYCLIA [id number] [address] [place] MCHC (RBC) [Mass/Vol] 30.7 g/dL Normal 30.5-36.0 [facility] Comment on above: Order Comment: Speci men Type: BLOOD SPECIMENOrdering Facility: [facility] Address: [address] [place] [address] Performed By: #### 5 8410-2 ####[facility]ORATORYCLIA [id number] [address] MCV (RBC) [Entitic vol] 92.2 fL Normal 80.0-100.0 [facility] Comment on above: Order Comment: Speci men Type: BLOOD SPECIMENOrdering Facility: [facility] Address: [address] [place] [address] Performed By: #### 5 8410-2 ####[facility]ORATORYCLIA [id number] [address] Nucleated RBC (Bld) [#/Vol] 10*3/uL Normal <0.01 [facility] Comment on above: Order Comment: Speci men Type: BLOOD SPECIMENOrdering Facility: [facility] Address: [address] [place] [address] Performed By: #### 5 8410-2 ####[facility]ORATORYCLIA [id number] [address] Platelet mean volume (Bld) [Entitic vol] 11.7 fL Normal 9.0-12.7 [facility] Comment on above: Order Comment: Speci men Type: BLOOD SPECIMENOrdering Facility: [facility] Address: [address] [place] [address] Performed By: #### 5 8410-2 ####[facility]ORATORYCLIA [id number] [address] Platelets (Bld) [#/Vol] 323 10*3/uL Normal 150-400 [facility] Comment on above: Order Comment: Speci men Type: BLOOD SPECIMENOrdering Facility: [facility] Address: [address] [place] [address] Performed By: #### 5 8410-2 ####[facility]ORATORYCLIA [id number] [address] RBC (Bld) [#/Vol] 3.35 10*6/uL Low 4.20-6.00 [facility] Comment on above: Order Comment: Speci men Type: BLOOD SPECIMENOrdering Facility: [facility] Address: [address] [place] [address] Performed By: #### 5 8410-2 ####[facility]ORATORYCLIA [id number] [address] [place] WBC (Bld) [#/Vol] 9.53 10*3/uL Normal 3.70-11.00 [facility] Comment on above: Order Comment: Speci men Type: BLOOD SPECIMENOrdering Facility: [facility] Address: [address] [place] [address] Performed By: #### 5 8410-2 ####[facility]ORATORYCLIA [id number] [address] HEMOGLOBIN (HGB)on Hemoglobin (Bld) [Mass/Vol] 9.7 g/dL Low 13.0-17.0 [facility] Comment on above: Order Comment: Speci men Type: BLOOD SPECIMENOrdering Facility: [facility] Address: [address] [place] [address] Performed By: #### H GB ####[facility]ORATORYCLIA [id number] [address] Magnesium SerPl-mCncon 06-19 Magnesium [Mass/Vol] 2.5 mg/dL High 1.7-2.3 [facility] Comment on above: Order Comment: Speci men Type: BLOOD SPECIMENOrdering Facility: [facility] Address: [address] [place] [address] Performed By: #### 1 9123-9, 2777-1 ####[facility] LABORATORYCLIA [id number] [place] [address] [place] NURSING PROGon 06-19-2021 NURSING PROG Normal [facility] Phosphate SerPl-mCncon 06-19 Phosphate [Mass/Vol] 2.6 mg/dL Low 2.7-4.8 [facility] Comment on above: Order Comment: Speci men Type: BLOOD SPECIMENOrdering Facility: [facility] Address: [address] [place] [address] Performed By: #### 1 9123-9, 2777-1 ####[facility]ORATORYCLIA [id number] [address] aPTT PPPon 06-19-2021 aPTT Coag (PPP) [Time] 61.9 s High 23.0-32.4 [facility] Comment on above: Order Comment: Speci men Type: BLOOD SPECIMENOrdering Facility: [facility] Address: [address] [place] [address] Performed By: #### 1 4979-9 ####[facility]ORATORYCLIA [id number] [address] aPTT Coag (PPP) [Time] 68.6 s High 23.0-32.4 [facility] Comment on above: Order Comment: Speci men Type: BLOOD SPECIMENOrdering Facility: [facility] Address: [address] [place] [address] Performed By: #### 1 4979-9 ####[facility]ORATORYCLIA [id number] [address] aPTT Coag (PPP) [Time] 83.2 s High 23.0-32.4 [facility] Comment on above: Order Comment: Speci men Type: BLOOD SPECIMENOrdering Facility: [facility] Address: [address] [place] [address] Performed By: #### 1 4979-9 ####[facility]ORATORYCLIA [id number] [address] Basic metabolic 2000 panelon 06-18-2021 Anion gap [Moles/Vol] 7 mmol/L Low 9-18 [facility] Comment on above: Order Comment: Speci men Type: BLOOD SPECIMENOrdering Facility: [facility] Address: [address] [place] [address] Performed By: #### 2 4321-2, 23689-7, 2777-1 ####[facility] LABORATORYCLIA [id number] [place] [address] [place] Calcium [Mass/Vol] 8.2 mg/dL Low 8.5-10.2 [facility] Comment on above: Order Comment: Speci men Type: BLOOD SPECIMENOrdering Facility: [facility] Address: [address] [place] [address] Performed By: #### 2 4321-2, , 2776-05 ####[facility] LABORATORYCLIA [id number] [place] [address] [place] Chloride [Moles/Vol] 115 mmol/L High 97-105 [facility] Comment on above: Order Comment: Speci men Type: BLOOD SPECIMENOrdering Facility: [facility] Address: [address] [place] [address] Performed By: #### 2 4321-2, , 2776-05 ####[facility] LABORATORYCLIA [id number] [place] [address] [place] CO2 [Moles/Vol] 23 mmol/L Normal 22-30 [facility] Comment on above: Order Comment: Speci men Type: BLOOD SPECIMENOrdering Facility: [facility] Address: [address] [place] [address] Performed By: #### 2 4321-2, , 2776-05 ####[facility] LABORATORYCLIA [id number] [place] [address] [place] Creatinine [Mass/Vol] 0.70 mg/dL Low 0.73-1.22 [facility] Comment on above: Order Comment: Speci men Type: BLOOD SPECIMENOrdering Facility: [facility] Address: [address] [place] [address] Performed By: #### 2 4321-2, , 2776-05 ####[facility] LABORATORYCLIA [id number] [place] [address] [place] GFR/1.73 sq M.predicted MDRD (S/P/Bld) [Vol rate/Area] mL/min/{1.73_m2} Normal [facility] Comment on above: Order Comment: Shira feldman Type: BLOOD SPECIMENOrdering Facility: [facility] Address: [address] [place] [phone] Result Comment: >60e GFR (Estimated GFR) Units of measure: mL/min/1.73 meters squaredeGFR is derived from the reexpressed MDRD Study equation using the following parameters: serum creatinine, age, gender and race. The creatinine assay has been calibrated to be traceable to IDMS. An eGFR <60 mL/min/1.73m2 for >3 months is consistent with chronic kidney disease. Refer to KDOQI guidelines for clinical interpretation. In patients with unstable renal function, e.g. those with acute kidney injury, the eGFR may not accurately reflect actual GFR. Performed By: #### 2 4321-2, 53669-8, 2777-1 ####[facility] [id number] [address] [place] Glucose [Mass/Vol] 105 mg/dL High 74-99 [facility] Comment on above: Order Comment: Shira feldman Type: BLOOD SPECIMENOrdering Facility: [facility] Address: [address] [place] [phone] Result Comment: The [place] [employer] (ADA) provides guidance for cutoff values for fasting glucose and random glucose. The ADA defines fasting as no caloric intake for at least 8 hours. Fasting plasma glucose results between 100 to 125 mg/dL indicate increased risk for diabetes (prediabetes).Fasting plasma glucose results greater than or equal to 126 mg/dL meet the criteria for diagnosis of diabetes. In the absence of unequivocal hyperglycemia, results should be confirmed by repeat testing. In a patient with classic symptoms of hyperglycemia or hyperglycemic crisis, random plasma glucose results greater than or equal to 200 mg/dL meet the criteria for diagnosis of diabetes.Reference: Standards of Medical Care in Diabetes 2016, [place] [employer]. Diabetes Care. 2016.39(Suppl 1). Performed By: #### 2 4321-2, 20500-2, 2777-1 ####[facility]ORATORYCLIA [id number] [address] [place] Potassium [Moles/Vol] 4.1 mmol/L Normal 3.7-5.1 [facility] Comment on above: Order Comment: Speci men Type: BLOOD SPECIMENOrdering Facility: [facility] Address: [address] [place] [address] Performed By: #### 2 4321-2, 32035-0, 2776- ####[facility] LABORATORYCLIA [id number] [place] [address] [place] Sodium [Moles/Vol] 145 mmol/L High 136-144 [facility] Comment on above: Order Comment: Speci men Type: BLOOD SPECIMENOrdering Facility: [facility] Address: [address] [place] [address] Performed By: #### 2 4321-2, , 2776-05 ####[facility] LABORATORYCLIA [id number] [address] [place] Urea nitrogen [Mass/Vol] 27 mg/dL High 9-24 [facility] Comment on above: Order Comment: Speci men Type: BLOOD SPECIMENOrdering Facility: [facility] Address: [address] [place] [address] Performed By: #### 2 4321-2, , 2776-05 ####[facility] LABORATORYCLIA [id number] [address] [place] CALCIUM IONIZED Bon 06-18-19 22 Calcium.ionized (BldV) [Mass/Vol] 1.22 mmol/L Normal 1.08-1.30 [facility] Comment on above: Order Comment: Speci men Type: BLOOD SPECIMENOrdering Facility: [facility] Address: [address] [place] [address] Performed By: #### I CA ####[facility] LABORATORYCLIA [id number] [address] [place] Calcium.ionized adjusted to pH 7.4 (Bld) [Moles/Vol] 1.23 mmol/L Normal 1.08-1.30 [facility] Comment on above: Order Comment: Speci men Type: BLOOD SPECIMENOrdering Facility: [facility] Address: [address] [place] [address] Performed By: #### I CA ####[facility] LABORATORYCLIA [id number] [address] STATES [facility] CBC panel Auto (Bld)on 06-18 Erythrocyte distribution width (RBC) [Ratio] 15.8 % High 11.5-15.0 [facility] Comment on above: Order Comment: Speci men Type: BLOOD SPECIMENOrdering Facility: [facility] Address: [address] [place] [address] Performed By: #### 5 8410-2 ####[facility] LABORATORYCLIA [id number] [address] Hematocrit (Bld) [Volume fraction] 29.5 % Low 39.0-51.0 [facility] Comment on above: Order Comment: Speci men Type: BLOOD SPECIMENOrdering Facility: [facility] Address: [address] [place] [address] Performed By: #### 5 8410-2 ####[facility] LABORATORYCLIA [id number] [address] Hemoglobin (Bld) [Mass/Vol] 8.8 g/dL Low 13.0-17.0 [facility] Comment on above: Order Comment: Speci men Type: BLOOD SPECIMENOrdering Facility: [facility] Address: [address] [place] [address] Performed By: #### 5 8410-2 ####[facility] LABORATORYCLIA [id number] [address] MCH (RBC) [Entitic mass] 27.4 pg Normal 26.0-34.0 [facility] Comment on above: Order Comment: Speci men Type: BLOOD SPECIMENOrdering Facility: [facility] Address: [address] [place] [address] Performed By: #### 5 8410-2 ####[facility] LABORATORYCLIA [id number] [address] STATES [facility] MCHC (RBC) [Mass/Vol] 29.8 g/dL Low 30.5-36.0 [facility] Comment on above: Order Comment: Speci men Type: BLOOD SPECIMENOrdering Facility: [facility] Address: [address] [place] [address] Performed By: #### 5 8410-2 ####[facility] LABORATORYCLIA [id number] [address] STATES [facility] MCV (RBC) [Entitic vol] 91.9 fL Normal 80.0-100.0 [facility] Comment on above: Order Comment: Speci men Type: BLOOD SPECIMENOrdering Facility: [facility] Address: [address] [place] [address] Performed By: #### 5 8410-2 ####[facility] LABORATORYCLIA [id number] [address] Nucleated RBC (Bld) [#/Vol] 10*3/uL Normal <0.01 [facility] Comment on above: Order Comment: Speci men Type: BLOOD SPECIMENOrdering Facility: [facility] Address: [address] [place] [address] Performed By: #### 5 8410-2 ####[facility] LABORATORYCLIA [id number] [address] STATES [facility] Platelet mean volume (Bld) [Entitic vol] 11.9 fL Normal 9.0-12.7 [facility] Comment on above: Order Comment: Speci men Type: BLOOD SPECIMENOrdering Facility: [facility] Address: [address] [place] [address] Performed By: #### 5 8410-2 ####[facility] LABORATORYCLIA [id number] [address] [place] Platelets (Bld) [#/Vol] 291 10*3/uL Normal 150-400 [facility] Comment on above: Order Comment: Speci men Type: BLOOD SPECIMENOrdering Facility: [facility] Address: [address] [place] [address] Performed By: #### 5 8410-2 ####[facility] LABORATORYCLIA [id number] [address] [place] [facility] RBC (Bld) [#/Vol] 3.21 10*6/uL Low 4.20-6.00 [facility] Comment on above: Order Comment: Speci men Type: BLOOD SPECIMENOrdering Facility: [facility] Address: [address] [place] [address] Performed By: #### 5 8410-2 ####[facility] LABORATORYCLIA [id number] [address] OF [facility] WBC (Bld) [#/Vol] 10.19 10*3/uL Normal 3.70-11.00 [facility] Comment on above: Order Comment: Speci men Type: BLOOD SPECIMENOrdering Facility: [facility] Address: [address] [place] [address] Performed By: #### 5 8410-2 ####[facility] LABORATORYCLIA [id number] [address] [place] FERRITIN BLDon 06-18-2021 Ferritin [Mass/Vol] 600.9 ng/mL High 30.3-565.7 [facility] Comment on above: Order Comment: Speci men Type: BLOOD SPECIMENOrdering Facility: [facility] Address: [address] [place] [address] Performed By: #### S ERFOL, IRON, FERR ####[facility] LABORATORYCLIA [id number] [address] FOLATE SERUMon 06-18-2021 Folate [Mass/Vol] 14.3 ng/mL Normal >4.7 [facility] Comment on above: Order Comment: Speci men Type: BLOOD SPECIMENOrdering Facility: [facility] Address: [address] [place] [address] Performed By: #### S ERFOL, IRON, FERR ####[facility] LABORATORYCLIA [id number] [address] [place] [facility] Gas and Carbon monoxide pane l (BldV)on 06-18-2021 Base excess Calc (BldV) [Moles/Vol] 0.5 mmol/L Normal 0-2 [facility] Comment on above: Order Comment: Speci men Type: VENOUS BLOOD SPECIMENOrdering Facility: [facility] Address: [address] [place] [address] Performed By: #### 2 4344-4 ####[facility] LABORATORYCLIA [id number] [address] Body temperature 97.34 [degF] Normal [facility] Comment on above: Order Comment: Speci men Type: VENOUS BLOOD SPECIMENOrdering Facility: [facility] Address: [address] [place] [address] Performed By: #### 2 4344-4 ####[facility] LABORATORYCLIA [id number] [address] [place] CALCIUM IONIZED, PH CORRECTED 1.26 mmol/L Normal 1.08-1.30 [facility] Comment on above: Order Comment: Speci men Type: VENOUS BLOOD SPECIMENOrdering Facility: [facility] Address: [address] [place] [address] Performed By: #### 2 4344-4 ####[facility] LABORATORYCLIA [id number] [address] [place] Calcium.ionized (BldV) [Mass/Vol] 1.25 mmol/L Normal 1.08-1.30 [facility] Comment on above: Order Comment: Speci men Type: VENOUS BLOOD SPECIMENOrdering Facility: [facility] Address: [address] [place] [address] Performed By: #### 2 4344-4 ####[facility] LABORATORYCLIA [id number] [address] [place] Carboxyhemoglobin (BldV) [Mass fraction] 1.5 % Normal 0.0-2.0 [facility] Comment on above: Order Comment: Speci men Type: VENOUS BLOOD SPECIMENOrdering Facility: [facility] Address: [address] [place] [address] Result Comment: Carb oxyhemoglobin Reference Range for Smokers: 2.0-8.0% Performed By: #### 2 4344-4 ####[facility] LABORATORYCLIA [id number] [address] [place] CO2 (BldV) [Partial pressure] 38 mm[Hg] Low 42-55 [facility] Comment on above: Order Comment: Speci men Type: VENOUS BLOOD SPECIMENOrdering Facility: [facility] Address: [address] [place] [address] Performed By: #### 2 4344-4 ####[facility] LABORATORYCLIA [id number] [address] [place] CO2 [Moles/Vol] 22.9 mmol/L Low 25-29 [facility] Comment on above: Order Comment: Speci men Type: VENOUS BLOOD SPECIMENOrdering Facility: [facility] Address: [address] [place] [address] Performed By: #### 2 4344-4 ####[facility] LABORATORYCLIA [id number] [address] [place] CO2 adjusted to patient's actual temperature (BldV) [Partial pressure] 37 mmHg Low 42-55 [facility] Comment on above: Order Comment: Speci men Type: VENOUS BLOOD SPECIMENOrdering Facility: [facility] Address: [address] [place] [address] Performed By: #### 2 4344-4 ####[facility] LABORATORYCLIA [id number] [address] [place] Glucose [Mass/Vol] 103 mg/dL Normal 60-105 [facility] Comment on above: Order Comment: Speci men Type: VENOUS BLOOD SPECIMENOrdering Facility: [facility] Address: [address] [place] [address] Performed By: #### 2 4344-4 ####[facility] LABORATORYCLIA [id number] [address] [place] HCO3 (Bld) [Moles/Vol] 24.4 mmol/L Normal 24-28 [facility] Comment on above: Order Comment: Speci men Type: VENOUS BLOOD SPECIMENOrdering Facility: [facility] Address: [address] [place] [address] Performed By: #### 2 4344-4 ####[facility] LABORATORYCLIA [id number] [address] [place] [facility] Hematocrit (Bld) [Volume fraction] 28.7 % Low 39.0-51.0 [facility] Comment on above: Order Comment: Speci men Type: VENOUS BLOOD SPECIMENOrdering Facility: [facility] Address: [address] [place] [address] Performed By: #### 2 4344-4 ####[facility] LABORATORYCLIA [id number] [address] Hemoglobin (Bld) [Mass/Vol] 9.3 g/dL Low 13.0-17.0 [facility] Comment on above: Order Comment: Speci men Type: VENOUS BLOOD SPECIMENOrdering Facility: [facility] Address: [address] [place] [address] Performed By: #### 2 4344-4 ####[facility] LABORATORYCLIA [id number] [address] [place] Methemoglobin (Bld) [Mass fraction] % Normal 0.0-1.5 [facility] Comment on above: Order Comment: Speci men Type: VENOUS BLOOD SPECIMENOrdering Facility: [facility] Address: [address] [place] [address] Performed By: #### 2 4344-4 ####[facility] LABORATORYCLIA [id number] [address] [place] O2 THERAPY Ventilator Normal [facility] Comment on above: Order Comment: Speci men Type: VENOUS BLOOD SPECIMENOrdering Facility: [facility] Address: [address] [place] [address] Performed By: #### 2 4344-4 ####[facility] LABORATORYCLIA [id number] [address] [place] Oxygen (BldV) [Partial pressure] 37 mm[Hg] Normal 35-45 [facility] Comment on above: Order Comment: Speci men Type: VENOUS BLOOD SPECIMENOrdering Facility: [facility] Address: [address] [place] [address] Performed By: #### 2 4344-4 ####[facility] LABORATORYCLIA [id number] [address] Oxygen adjusted to patient's actual temperature (BldV) [Partial pressure] 35.1 mmHg Normal 35-45 [facility] Comment on above: Order Comment: Speci men Type: VENOUS BLOOD SPECIMENOrdering Facility: [facility] Address: [address] [place] [address] Performed By: #### 2 4344-4 ####[facility] LABORATORYCLIA [id number] [address] Oxygen saturation in Blood 67.1 % Normal 60-85 [facility] Comment on above: Order Comment: Speci men Type: VENOUS BLOOD SPECIMENOrdering Facility: [facility] Address: [address] [place] [address] Performed By: #### 2 4344-4 ####[facility] LABORATORYCLIA [id number] [address] [place] Oxyhemoglobin (BldV) [Mass fraction] 66 % Normal 60-85 [facility] Comment on above: Order Comment: Speci men Type: VENOUS BLOOD SPECIMENOrdering Facility: [facility] Address: [address] [place] [address] Performed By: #### 2 4344-4 ####[facility] LABORATORYCLIA [id number] [place] [address] [place] pH (BldV) 7.42 [pH] Normal 7.32-7.42 [facility] Comment on above: Order Comment: Speci men Type: VENOUS BLOOD SPECIMENOrdering Facility: [facility] Address: [address] [place] [address] Performed By: #### 2 4344-4 ####[facility] LABORATORYCLIA [id number] [address] [place] pH adjusted to patient's actual temperature (BldV) 7.43 High 7.32-7.42 [facility] Comment on above: Order Comment: Speci men Type: VENOUS BLOOD SPECIMENOrdering Facility: [facility] Address: [address] [place] [address] Performed By: #### 2 4344-4 ####[facility] LABORATORYCLIA [id number] [address] [place] Potassium [Moles/Vol] 4.0 mmol/L Normal 3.5-5.0 [facility] Comment on above: Order Comment: Speci men Type: VENOUS BLOOD SPECIMENOrdering Facility: [facility] Address: [address] [place] [address] Performed By: #### 2 4344-4 ####[facility] LABORATORYCLIA [id number] [address] [place] Sodium [Moles/Vol] 146 mmol/L High 136-144 [facility] Comment on above: Order Comment: Speci men Type: VENOUS BLOOD SPECIMENOrdering Facility: [facility] Address: [address] [place] [address] Performed By: #### 2 4344-4 ####[facility] LABORATORYCLIA [id number] [place] [address] [place] HEMOGLOBIN (HGB)on 2 Hemoglobin (Bld) [Mass/Vol] 9.2 g/dL Low 13.0-17.0 [facility] Comment on above: Order Comment: Speci men Type: BLOOD SPECIMENOrdering Facility: [facility] Address: [address] [place] [address] Performed By: #### H GB ####[facility] LABORATORYCLIA [id number] [address] IRON + TIBCon 06-18-2021 Iron [Mass/Vol] 27 ug/dL Low 41-186 [facility] Comment on above: Order Comment: Speci men Type: BLOOD SPECIMENOrdering Facility: [facility] Address: [address] [place] [address] Performed By: #### S ERFOL, IRON, FERR ####[facility] LABORATORYCLIA [id number] [address] Iron binding capacity [Mass/Vol] 141 ug/dL Low 232-386 [facility] Comment on above: Order Comment: Speci men Type: BLOOD SPECIMENOrdering Facility: [facility] Address: [address] [place] [address] Performed By: #### S ERFOL, IRON, FERR ####[facility] LABORATORYCLIA [id number] [address] Iron saturation [Mass fraction] 19 % Normal 15-57 [facility] Comment on above: Order Comment: Speci men Type: BLOOD SPECIMENOrdering Facility: [facility] Address: [address] [place] [address] Performed By: #### S ERFOL, IRON, FERR ####[facility] LABORATORYCLIA [id number] [address] [place] Magnesium SerPl-mCncon 06-18 Magnesium [Mass/Vol] 2.5 mg/dL High 1.7-2.3 [facility] Comment on above: Order Comment: Speci men Type: BLOOD SPECIMENOrdering Facility: [facility] Address: [address] [place] [address] Performed By: #### 2 4321-2, 09365-3, 2777-1 ####[facility] LABORATORYCLIA [id number] [address] OF [facility] NURSING PROGon 06-18-2021 NURSING PROG Normal [facility] Phosphate SerPl-mCncon 06-18 Phosphate [Mass/Vol] 3.0 mg/dL Normal 2.7-4.8 [facility] Comment on above: Order Comment: Speci men Type: BLOOD SPECIMENOrdering Facility: [facility] Address: [address] [place] [address] Performed By: #### 2 4321-2, 30808-8, 2777-1 ####[facility] LABORATORYCLIA [id number] [address] THERAPY NTon 06-18-2021 THERAPY NT Normal [facility] aPTT PPPon 06-18-2021 aPTT Coag (PPP) [Time] 43.0 s High 23.0-32.4 [facility] Comment on above: Order Comment: Speci men Type: BLOOD SPECIMENOrdering Facility: [facility] Address: [address] [place] [address] Performed By: #### 1 4979-9 ####[facility] LABORATORYCLIA [id number] [address] aPTT Coag (PPP) [Time] 60.6 s High 23.0-32.4 [facility] Comment on above: Order Comment: Speci men Type: BLOOD SPECIMENOrdering Facility: [facility] Address: [address] [place] [address] Performed By: #### 1 4979-9 ####[facility] LABORATORYCLIA [id number] [address] aPTT Coag (PPP) [Time] 46.4 s High 23.0-32.4 [facility] Comment on above: Order Comment: Speci men Type: BLOOD SPECIMENOrdering Facility: [facility] Address: [address] [place] [address] Performed By: #### 1 4979-9 ####[facility] LABORATORYCLIA [id number] [place] [address] [place] Basic metabolic 2000 panelon 06-17-2021 Anion gap [Moles/Vol] 7 mmol/L Low 9-18 [facility] Comment on above: Order Comment: Speci men Type: BLOOD SPECIMENOrdering Facility: [facility] Address: [address] [place] [address] Performed By: #### 2 951-2, 19922-9, 2776-05, 19497-7 ####[facility] LABORATORYCLIA [id number] [place] [address] [place] Calcium [Mass/Vol] 8.1 mg/dL Low 8.5-10.2 [facility] Comment on above: Order Comment: Speci men Type: BLOOD SPECIMENOrdering Facility: [facility] Address: [address] [place] [address] Performed By: #### 2 951-2, , 2776-05, 11700-3 ####[facility] LABORATORYCLIA [id number] [place] [address] [place] Chloride [Moles/Vol] 113 mmol/L High 97-105 [facility] Comment on above: Order Comment: Speci men Type: BLOOD SPECIMENOrdering Facility: [facility] Address: [address] [place] [address] Performed By: #### 2 951-2, , 2776-05, 02032-9 ####[facility] LABORATORYCLIA [id number] [place] [address] [place] CO2 [Moles/Vol] 25 mmol/L Normal 22-30 [facility] Comment on above: Order Comment: Speci men Type: BLOOD SPECIMENOrdering Facility: [facility] Address: [address] [place] [address] Performed By: #### 2 951-2, , 2776-05, 41975-0 ####[facility] LABORATORYCLIA [id number] [place] [address] [place] Creatinine [Mass/Vol] 0.70 mg/dL Low 0.73-1.22 [facility] Comment on above: Order Comment: Johncara feldman Type: BLOOD SPECIMENOrdering Facility: [facility] Address: [address] [place], [place] [address] Performed By: #### 2 951-2, 96435-1, 2776-, 40394-0 ####[facility] LABORATORYCLIA [id number] [place] [address] [place] GFR/1.73 sq M.predicted MDRD (S/P/Bld) [Vol rate/Area] mL/min/{1.73_m2} Normal [facility] Comment on above: Order Comment: Johncaar feldman Type: BLOOD SPECIMENOrdering Facility: [facility] Address: [address] [place] [address] Result Comment: >60e GFR (Estimated GFR) Units of measure: mL/min/1.73 meters squaredeGFR is derived from the reexpressed MDRD Study equation using the following parameters: serum creatinine, age, gender and race. The creatinine assay has been calibrated to be traceable to IDMS. An eGFR <60 mL/min/1.73m2 for >3 months is consistent with chronic kidney disease. Refer to KDOQI guidelines for clinical interpretation. In patients with unstable renal function, e.g. those with acute kidney injury, the eGFR may not accurately reflect actual GFR. Performed By: #### 2 951-2, 19480-8, 277-, 36632-1 ####[facility] LABORATORYCLIA [id number] [place] [address] [place] Glucose [Mass/Vol] 122 mg/dL High 74-99 [facility] Comment on above: Order Comment: Johncara feldman Type: BLOOD SPECIMENOrdering Facility: [facility] Address: [address] [place], [place] [address] Result Comment: The [place] [employer] (ADA) provides guidance for cutoff values for fasting glucose and random glucose. The ADA defines fasting as no caloric intake for at least 8 hours. Fasting plasma glucose results between 100 to 125 mg/dL indicate increased risk for diabetes (prediabetes).Fasting plasma glucose results greater than or equal to 126 mg/dL meet the criteria for diagnosis of diabetes. In the absence of unequivocal hyperglycemia, results should be confirmed by repeat testing. In a patient with classic symptoms of hyperglycemia or hyperglycemic crisis, random plasma glucose results greater than or equal to 200 mg/dL meet the criteria for diagnosis of diabetes.Reference: Standards of Medical Care in Diabetes 2016, [place] [employer]. Diabetes Care. 2016.39(Suppl 1). Performed By: #### 2 951-2, 45401-7, 27711-04, 26528-5 ####[facility] LABORATORYCLIA [id number] [place] [address] [place] Potassium [Moles/Vol] 3.5 mmol/L Low 3.7-5.1 [facility] Comment on above: Order Comment: Shira feldman Type: BLOOD SPECIMENOrdering Facility: [facility] Address: [address] [place] [address] Performed By: #### 2 951-2, , 27711-04, 37627-3 ####[facility]PITALIA [id number] [address] [place] Urea nitrogen [Mass/Vol] 27 mg/dL High 9-24 [facility] Comment on above: Order Comment: Shira feldman Type: BLOOD SPECIMENOrdering Facility: [facility] Address: [address] [place] [address] Performed By: #### 2 951-2, , 2776-05, 18957-7 ####[facility] LABORATORYCLIA [id number] [address] [place] CASE MANAGEMon 06-17-2021 CASE MANAGEM Normal [facility] CBC panel Auto (Bld)on 06-17 Erythrocyte distribution width (RBC) [Ratio] 15.9 % High 11.5-15.0 [facility] Comment on above: Order Comment: Shira feldman Type: BLOOD SPECIMENOrdering Facility: [facility] Address: [address] [place] [address] Performed By: #### 5 8410-2 ####[facility] LABORATORYCLIA [id number] [address] Hematocrit (Bld) [Volume fraction] 28.9 % Low 39.0-51.0 [facility] Comment on above: Order Comment: Speci men Type: BLOOD SPECIMENOrdering Facility: [facility] Address: [address] [place] [address] Performed By: #### 5 8410-2 ####[facility] LABORATORYCLIA [id number] [address] Hemoglobin (Bld) [Mass/Vol] 8.8 g/dL Low 13.0-17.0 [facility] Comment on above: Order Comment: Speci men Type: BLOOD SPECIMENOrdering Facility: [facility] Address: [address] [place] [address] Performed By: #### 5 8410-2 ####[facility] LABORATORYCLIA [id number] [address] MCH (RBC) [Entitic mass] 28.4 pg Normal 26.0-34.0 [facility] Comment on above: Order Comment: Speci men Type: BLOOD SPECIMENOrdering Facility: [facility] Address: [address] [place] [address] Performed By: #### 5 8410-2 ####[facility] LABORATORYCLIA [id number] [address] [place] MCHC (RBC) [Mass/Vol] 30.4 g/dL Low 30.5-36.0 [facility] Comment on above: Order Comment: Speci men Type: BLOOD SPECIMENOrdering Facility: [facility] Address: [address] [place] [address] Performed By: #### 5 8410-2 ####[facility] LABORATORYCLIA [id number] [address] OF [facility] MCV (RBC) [Entitic vol] 93.2 fL Normal 80.0-100.0 [facility] Comment on above: Order Comment: Speci men Type: BLOOD SPECIMENOrdering Facility: [facility] Address: [address] Performed By: #### 5 8410-2 ####[facility] LABORATORYCLIA [id number] [address] [place] Nucleated RBC (Bld) [#/Vol] 10*3/uL Normal <0.01 [facility] Comment on above: Order Comment: Speci men Type: BLOOD SPECIMENOrdering Facility: [facility] Address: [address] [place], [place] [address] Performed By: #### 5 8410-2 ####[facility] LABORATORYCLIA [id number] [place] [address] [place] Platelet mean volume (Bld) [Entitic vol] 11.9 fL Normal 9.0-12.7 [facility] Comment on above: Order Comment: Speci men Type: BLOOD SPECIMENOrdering Facility: [facility] Address: [address] [place] [address] Performed By: #### 5 8410-2 ####[facility] LABORATORYCLIA [id number] [address] [place] Platelets (Bld) [#/Vol] 257 10*3/uL Normal 150-400 [facility] Comment on above: Order Comment: Speci men Type: BLOOD SPECIMENOrdering Facility: [facility] Address: [address] Performed By: #### 5 8410-2 ####[facility] LABORATORYCLIA [id number] [address] [place] RBC (Bld) [#/Vol] 3.10 10*6/uL Low 4.20-6.00 [facility] Comment on above: Order Comment: Speci men Type: BLOOD SPECIMENOrdering Facility: [facility] Address: [address] [place] [address] Performed By: #### 5 8410-2 ####[facility] LABORATORYCLIA [id number] [address] [place] WBC (Bld) [#/Vol] 10.54 10*3/uL Normal 3.70-11.00 [facility] Comment on above: Order Comment: Speci men Type: BLOOD SPECIMENOrdering Facility: [facility] Address: [address] [place] [address] Performed By: #### 5 8410-2 ####[facility] LABORATORYCLIA [id number] [address] HEMOGLOBIN (HGB)on Hemoglobin (Bld) [Mass/Vol] 8.8 g/dL Low 13.0-17.0 [facility] Comment on above: Order Comment: Speci men Type: BLOOD SPECIMENOrdering Facility: [facility] Address: [address] [place] [address] Performed By: #### H GB ####[facility] LABORATORYCLIA [id number] [address] Magnesium SerPl-mCncon 06-17 Magnesium [Mass/Vol] 2.5 mg/dL High 1.7-2.3 [facility] Comment on above: Order Comment: Speci men Type: BLOOD SPECIMENOrdering Facility: [facility] Address: [address] [place] [address] Performed By: #### 2 951-2, 67378-7, 2777-1, 87221-7 ####[facility] LABORATORYCLIA [id number] [address] [place] NURSING PROGon 06-17-2021 NURSING PROG Normal [facility] NURSING PROG Normal [facility] NURSING PROG Normal [facility] Phosphate SerPl-mCncon 06-17 Phosphate [Mass/Vol] 1.9 mg/dL Low 2.7-4.8 [facility] Comment on above: Order Comment: Speci men Type: BLOOD SPECIMENOrdering Facility: [facility] Address: [address] [place] [address] Performed By: #### 2 951-2, 47376-7, 2777-1, 23170-5 ####[facility] LABORATORYCLIA [id number] [address] [facility] Sodium SerPl-sCncon 06-17-19 Sodium [Moles/Vol] 144 mmol/L Normal 136-144 [facility] Comment on above: Order Comment: Speci men Type: BLOOD SPECIMENOrdering Facility: [facility] Address: [address] [place] [address] Performed By: #### 2 951-2 ####[facility] LABORATORYCLIA [id number] [address] Sodium [Moles/Vol] 145 mmol/L High 136-144 [facility] Comment on above: Order Comment: Speci men Type: BLOOD SPECIMENOrdering Facility: [facility] Address: [address] [place] [address] Performed By: #### 2 951-2, 32649-4, 2777-1, 23821-4 ####[facility] LABORATORYCLIA [id number] [address] aPTT PPPon 06-17-2021 aPTT Coag (PPP) [Time] 55.8 s High 23.0-32.4 [facility] Comment on above: Order Comment: Speci men Type: BLOOD SPECIMENOrdering Facility: [facility] Address: [address] [place] [address] Performed By: #### 1 4979-9 ####[facility] LABORATORYCLIA [id number] [address] ARTERIAL BLOOD GASESon 06-16 Base excess Calc (Bld) [Moles/Vol] 3 mmol/L High 0-2 [facility] Comment on above: Order Comment: Speci men Type: ARTERIAL BLOOD SPECIMENOrdering Facility: [facility] Address: [address] [place] [address] Performed By: #### A LLBG ####[facility]ORATORYCLIA [id number] [address] Body temperature 99.14 [degF] Normal [facility] Comment on above: Order Comment: Speci men Type: ARTERIAL BLOOD SPECIMENOrdering Facility: [facility] Address: [address] [place] [address] Performed By: #### A LLBG ####[facility] LABORATORYCLIA [id number] [address] [facility] CALCIUM IONIZED, PH CORRECTED 1.21 mmol/L Normal 1.08-1.30 [facility] Comment on above: Order Comment: Speci men Type: ARTERIAL BLOOD SPECIMENOrdering Facility: [facility] Address: [address] [place] [address] Performed By: #### A LLBG ####[facility] LABORATORYCLIA [id number] [address] Calcium.ionized (BldV) [Mass/Vol] 1.17 mmol/L Normal 1.08-1.30 [facility] Comment on above: Order Comment: Speci men Type: ARTERIAL BLOOD SPECIMENOrdering Facility: [facility] Address: [address] [place] [address] Performed By: #### A LLBG ####[facility]ORATORYCLIA [id number] [address] Carboxyhemoglobin (BldA) [Mass fraction] 1.4 % Normal 0.0-2.0 [facility] Comment on above: Order Comment: Speci men Type: ARTERIAL BLOOD SPECIMENOrdering Facility: [facility] Address: [address] [place] [address] Result Comment: Carb oxyhemoglobin Reference Range for Smokers: 2.0-8.0% Performed By: #### A LLBG ####[facility] LABORATORYCLIA [id number] [address] [place] CO2 (Bld) [Partial pressure] 38 mm Hg Normal 36-46 [facility] Comment on above: Order Comment: Speci men Type: ARTERIAL BLOOD SPECIMENOrdering Facility: [facility] Address: [address] [place] [address] Performed By: #### A LLBG ####[facility]ORATORYCLIA [id number] [address] CO2 [Moles/Vol] 24.5 mmol/L Normal 22-28 [facility] Comment on above: Order Comment: Speci men Type: ARTERIAL BLOOD SPECIMENOrdering Facility: [facility] Address: [address] [place] [address] Performed By: #### A LLBG ####[facility] LABORATORYCLIA [id number] [address] CO2 adjusted to patient's actual temperature (Bld) [Partial pressure] 38 mmHg Normal 36-46 [facility] Comment on above: Order Comment: Speci men Type: ARTERIAL BLOOD SPECIMENOrdering Facility: [facility] Address: [address] [place] [address] Performed By: #### A LLBG ####[facility]ORATORYCLIA [id number] [address] [place] Glucose [Mass/Vol] 147 mg/dL High 60-105 [facility] Comment on above: Order Comment: Speci men Type: ARTERIAL BLOOD SPECIMENOrdering Facility: [facility] Address: [address] [place] [address] Performed By: #### A LLBG ####[facility]ORATORYCLIA [id number] [address] HCO3 (Bld) [Moles/Vol] 27 mmol/L High 22-26 [facility] Comment on above: Order Comment: Speci men Type: ARTERIAL BLOOD SPECIMENOrdering Facility: [facility] Address: [address] [place] [address] Performed By: #### A LLBG ####[facility]ORATORYCLIA [id number] [address] [place] Hematocrit (Bld) [Volume fraction] 31.8 % Low 39.0-51.0 [facility] Comment on above: Order Comment: Speci men Type: ARTERIAL BLOOD SPECIMENOrdering Facility: [facility] Address: [address] [place] [address] Performed By: #### A LLBG ####[facility]ORATORYCLIA [id number] [address] [facility] Hemoglobin (Bld) [Mass/Vol] 10.3 g/dL Low 13.0-17.0 [facility] Comment on above: Order Comment: Speci men Type: ARTERIAL BLOOD SPECIMENOrdering Facility: [facility] Address: [address] [place] [address] Performed By: #### A LLBG ####[facility]ORATORYCLIA [id number] [address] Methemoglobin (Bld) [Mass fraction] 1.0 % Normal 0.0-1.5 [facility] Comment on above: Order Comment: Speci men Type: ARTERIAL BLOOD SPECIMENOrdering Facility: [facility] Address: [address] [place] [address] Performed By: #### A LLBG ####[facility]ORATORYCLIA [id number] [address] O2 THERAPY Ventilator Normal [facility] Comment on above: Order Comment: Speci men Type: ARTERIAL BLOOD SPECIMENOrdering Facility: [facility] Address: [address] [place] [address] Performed By: #### A LLBG ####[facility] LABORATORYCLIA [id number] [address] Oxygen (Bld) [Partial pressure] 78 mm Hg Low 85-95 [facility] Comment on above: Order Comment: Speci men Type: ARTERIAL BLOOD SPECIMENOrdering Facility: [facility] Address: [address] [place] [address] Performed By: #### A LLBG ####[facility]ORATORYCLIA [id number] [address] Oxygen adjusted to patient's actual temperature (Bld) [Partial pressure] 79.7 mmHg Low 85-95 [facility] Comment on above: Order Comment: Speci men Type: ARTERIAL BLOOD SPECIMENOrdering Facility: [facility] Address: [address] [place] [address] Performed By: #### A LLBG ####[facility]ORATORYCLIA [id number] [address] [place] OXYGEN SATURATION, ARTERIAL 96 % Normal 95-98 [facility] Comment on above: Order Comment: Speci men Type: ARTERIAL BLOOD SPECIMENOrdering Facility: [facility] Address: [address] [place] [address] Performed By: #### A LLBG ####[facility]ATORYCLIA [id number] [address] Oxyhemoglobin (BldA) [Mass fraction] 94 % Low 95-98 [facility] Comment on above: Order Comment: Speci men Type: ARTERIAL BLOOD SPECIMENOrdering Facility: [facility] Address: [address] [place] [address] Performed By: #### A LLBG ####[facility]ATORYCLIA [id number] [address] pH (Bld) 7.47 [pH] High 7.35-7.45 [facility] Comment on above: Order Comment: Speci men Type: ARTERIAL BLOOD SPECIMENOrdering Facility: [facility] Address: [address] [place] [address] Performed By: #### A LLBG ####[facility]ATORYCLIA [id number] [address] STATES [facility] pH adjusted to patient's actual temperature (Bld) 7.46 High 7.35-7.45 [facility] Comment on above: Order Comment: Speci men Type: ARTERIAL BLOOD SPECIMENOrdering Facility: [facility] Address: [address] [place] [address] Performed By: #### A LLBG ####[facility]ORATORYCLIA [id number] [place] [address] [place] Potassium [Moles/Vol] 3.7 mmol/L Normal 3.5-5.0 [facility] Comment on above: Order Comment: Speci men Type: ARTERIAL BLOOD SPECIMENOrdering Facility: [facility] Address: [address] [place] [address] Performed By: #### A LLBG ####[facility]ORATORYCLIA [id number] [place] [address] [place] Sodium [Moles/Vol] 155 mmol/L High 136-144 [facility] Comment on above: Order Comment: Speci men Type: ARTERIAL BLOOD SPECIMENOrdering Facility: [facility] Address: [address] [place] [address] Performed By: #### A LLBG ####[facility] LABORATORYCLIA [id number] [place] [address] [place] Bacteria Spec Resp Culton Bacteria identified Respiratory culture Nom (Unsp spec) CULTURE, RESPIRATORY: Rare Normal respiratory chris present ORGANISM ID: 1 Few Yeast, not cryptococcus neoformans GRAM STAIN: No organisms seen Few Polymorphonuclear leukocytes Few Epithelial cells Abnormal [facility] Comment on above: Performed By: #### 3 2355-0 ####[facility] LABORATORYCLIA [id number] [place] [address] [place] Basic metabolic 2000 panelon 06-16-2021 Anion gap [Moles/Vol] 9 mmol/L Normal 9-18 [facility] Comment on above: Order Comment: Speci men Type: BLOOD SPECIMENOrdering Facility: [facility] Address: [address] [place] [address] Performed By: #### 2 4321-2 ####[facility] LABORATORYCLIA [id number] [place] [address] [place] Calcium [Mass/Vol] 8.4 mg/dL Low 8.5-10.2 [facility] Comment on above: Order Comment: Speci men Type: BLOOD SPECIMENOrdering Facility: [facility] Address: [facility] [place] [address] Performed By: #### 2 4321-2 ####[facility] LABORATORYCLIA [id number] [place] [address] [place] Chloride [Moles/Vol] 120 mmol/L High 97-105 [facility] Comment on above: Order Comment: Speci men Type: BLOOD SPECIMENOrdering Facility: [facility] Address: [address] [place] [address] Performed By: #### 2 4321-2 ####[facility] LABORATORYCLIA [id number] [place] [address] [place] CO2 [Moles/Vol] 27 mmol/L Normal 22-30 [facility] Comment on above: Order Comment: Speci men Type: BLOOD SPECIMENOrdering Facility: [facility] Address: [address] [place] [address] Performed By: #### 2 4321-2 ####[facility] LABORATORYCLIA [id number] [place] [address] [place] Creatinine [Mass/Vol] 0.75 mg/dL Normal 0.73-1.22 [facility] Comment on above: Order Comment: Speci men Type: BLOOD SPECIMENOrdering Facility: [facility] Address: [address] [place] [address] Performed By: #### 2 4321-2 ####[facility] LABORATORYCLIA [id number] [place] [address] [place] GFR/1.73 sq M.predicted MDRD (S/P/Bld) [Vol rate/Area] mL/min/{1.73_m2} Normal [facility] Comment on above: Order Comment: Speci men Type: BLOOD SPECIMENOrdering Facility: [facility] Address: [address] [place] [address] Result Comment: >60e GFR (Estimated GFR) Units of measure: mL/min/1.73 meters squaredeGFR is derived from the reexpressed MDRD Study equation using the following parameters: serum creatinine, age, gender and race. The creatinine assay has been calibrated to be traceable to IDMS. An eGFR <60 mL/min/1.73m2 for >3 months is consistent with chronic kidney disease. Refer to KDOQI guidelines for clinical interpretation. In patients with unstable renal function, e.g. those with acute kidney injury, the eGFR may not accurately reflect actual GFR. Performed By: #### 2 4321-2 ####[facility] LABORATORYCLIA [id number] [place] [address] [place] Glucose [Mass/Vol] 160 mg/dL High 74-99 [facility] Comment on above: Order Comment: Shira feldman Type: BLOOD SPECIMENOrdering Facility: [facility] Address: [address] [place], [place] [id number] Result Comment: The [place] [employer] (ADA) provides guidance for cutoff values for fasting glucose and random glucose. The ADA defines fasting as no caloric intake for at least 8 hours. Fasting plasma glucose results between 100 to 125 mg/dL indicate increased risk for diabetes (prediabetes).Fasting plasma glucose results greater than or equal to 126 mg/dL meet the criteria for diagnosis of diabetes. In the absence of unequivocal hyperglycemia, results should be confirmed by repeat testing. In a patient with classic symptoms of hyperglycemia or hyperglycemic crisis, random plasma glucose results greater than or equal to 200 mg/dL meet the criteria for diagnosis of diabetes.Reference: Standards of Medical Care in Diabetes 2016, [place] [employer]. Diabetes Care. 2016.39(Suppl 1). Performed By: #### 2 4321-2 ####[facility] LABORATORYCLIA [id number] [place] [address] [place] Potassium [Moles/Vol] 3.1 mmol/L Low 3.7-5.1 [facility] Comment on above: Order Comment: Shira feldman Type: BLOOD SPECIMENOrdering Facility: [facility] Address: [address] [id number] Performed By: #### 2 4321-2 ####[facility] LABORATORYCLIA [id number] [place] [address] [place] Sodium [Moles/Vol] 156 mmol/L High 136-144 [facility] Comment on above: Order Comment: Speci men Type: BLOOD SPECIMENOrdering Facility: [facility] Address: [address] [place] [address] Performed By: #### 2 4321-2 ####[facility] LABORATORYCLIA [id number] [place] [address] [place] Urea nitrogen [Mass/Vol] 33 mg/dL High 9-24 [facility] Comment on above: Order Comment: Speci men Type: BLOOD SPECIMENOrdering Facility: [facility] Address: [address] [place] [address] Performed By: #### 2 4321-2 ####[facility] LABORATORYCLIA [id number] [address] [facility] CASE MANAGEMon 06-16-2021 CASE MANAGEM Normal [facility] CBC panel Auto (Bld)on 06-16 Erythrocyte distribution width (RBC) [Ratio] 15.9 % High 11.5-15.0 [facility] Comment on above: Order Comment: Speci men Type: BLOOD SPECIMENOrdering Facility: [facility] Address: [address] [place] [address] Performed By: #### 5 8410-2 ####[facility] LABORATORYCLIA [id number] [address] [place] Hematocrit (Bld) [Volume fraction] 34.6 % Low 39.0-51.0 [facility] Comment on above: Order Comment: Speci men Type: BLOOD SPECIMENOrdering Facility: [facility] Address: [address] [place] [address] Performed By: #### 5 8410-2 ####[facility] LABORATORYCLIA [id number] [address] [place] Hemoglobin (Bld) [Mass/Vol] 10.2 g/dL Low 13.0-17.0 [facility] Comment on above: Order Comment: Speci men Type: BLOOD SPECIMENOrdering Facility: [facility] Address: [address] [place], [place] [address] Performed By: #### 5 8410-2 ####[facility] LABORATORYCLIA [id number] [address] MCH (RBC) [Entitic mass] 28.5 pg Normal 26.0-34.0 [facility] Comment on above: Order Comment: Speci men Type: BLOOD SPECIMENOrdering Facility: [facility] Address: [address] [place] [address] Performed By: #### 5 8410-2 ####[facility]ORATORYCLIA [id number] [address] MCHC (RBC) [Mass/Vol] 29.5 g/dL Low 30.5-36.0 [facility] Comment on above: Order Comment: Speci men Type: BLOOD SPECIMENOrdering Facility: [facility] Address: [address] [place] [address] Performed By: #### 5 8410-2 ####[facility] LABORATORYCLIA [id number] [address] MCV (RBC) [Entitic vol] 96.6 fL Normal 80.0-100.0 [facility] Comment on above: Order Comment: Speci men Type: BLOOD SPECIMENOrdering Facility: [facility] Address: [address] [place] [address] Performed By: #### 5 8410-2 ####[facility]ORATORYCLIA [id number] [address] Nucleated RBC (Bld) [#/Vol] 10*3/uL Normal <0.01 [facility] Comment on above: Order Comment: Speci men Type: BLOOD SPECIMENOrdering Facility: [facility] Address: [address] [place] [address] Performed By: #### 5 8410-2 ####[facility]ORATORYCLIA [id number] [address] Platelet mean volume (Bld) [Entitic vol] 11.9 fL Normal 9.0-12.7 [facility] Comment on above: Order Comment: Speci men Type: BLOOD SPECIMENOrdering Facility: [facility] Address: [address] [place] [address] Performed By: #### 5 8410-2 ####[facility]ORATORYCLIA [id number] [address] [place] Platelets (Bld) [#/Vol] 269 10*3/uL Normal 150-400 [facility] Comment on above: Order Comment: Speci men Type: BLOOD SPECIMENOrdering Facility: [facility] Address: [address] [place] [address] Performed By: #### 5 8410-2 ####[facility]ORATORYCLIA [id number] [place] [address] [place] RBC (Bld) [#/Vol] 3.58 10*6/uL Low 4.20-6.00 [facility] Comment on above: Order Comment: Speci men Type: BLOOD SPECIMENOrdering Facility: [facility] Address: [address] [place] [address] Performed By: #### 5 8410-2 ####[facility]ORATORYCLIA [id number] [address] [facility] WBC (Bld) [#/Vol] 13.11 10*3/uL High 3.70-11.00 [facility] Comment on above: Order Comment: Speci men Type: BLOOD SPECIMENOrdering Facility: [facility] Address: [address] [place] [address] Performed By: #### 5 8410-2 ####[facility]ORATORYCLIA [id number] [address] [place] CONSULTon 06-16-2021 CONSULT Normal [facility] CONSULT PROGon 06-16-2021 CONSULT PROG Normal [facility] CT BRAIN WO IVCONon 06-16-[address] BRAIN WO IVCON Normal [facility] HEMOGLOBIN (HGB)on 2 Hemoglobin (Bld) [Mass/Vol] 8.9 g/dL Low 13.0-17.0 [facility] Comment on above: Order Comment: Speci men Type: BLOOD SPECIMENOrdering Facility: [facility] Address: [address] [place] [address] Performed By: #### H GB ####[facility]ORATORYCLIA [id number] [address] [place] [facility] Hemoglobin (Bld) [Mass/Vol] 9.6 g/dL Low 13.0-17.0 [facility] Comment on above: Order Comment: Speci men Type: BLOOD SPECIMENOrdering Facility: [facility] Address: [address] [place] [address] Performed By: #### H GB ####[facility]ORATORYCLIA [id number] [address] [place] Magnesium SerPl-ncon 06-16 Magnesium [Mass/Vol] 2.7 mg/dL High 1.7-2.3 [facility] Comment on above: Order Comment: Speci men Type: BLOOD SPECIMENOrdering Facility: [facility] Address: [address] [place] [address] Performed By: #### 1 9123-9 ####[facility] LABORATORYCLIA [id number] [address] [place] NURSING PROGon 06-16-2021 NURSING PROG Normal [facility] [facility] NUTRITIONon 06-16-2021 NUTRITION Normal [facility] Phosphate SerPl-mCncon 06-16 Phosphate [Mass/Vol] 1.4 mg/dL Low 2.7-4.8 [facility] Comment on above: Order Comment: Speci men Type: BLOOD SPECIMENOrdering Facility: [facility] Address: [address] [place] [address] Performed By: #### 2 777-1 ####[facility] LABORATORYCLIA [id number] [address] [place] STAPH AUREUS PCRon 2 S. aureus and MRSA panel MEGAN+probe (Nose) Normal Negative [facility] Comment on above: Order Comment: Speci men Type: SWAB OF INTERNAL NOSEOrdering Facility: [facility] Address: [address] [place] [address] Result Comment: Nega tive for Staphylococcus aureus by PCR.Negative for MRSA by PCR Performed By: #### S APCR ####[facility] LABORATORYCLIA [id number] [place] [address] [place] Sodium SerPl-sCncon 06-16-19 Sodium [Moles/Vol] 150 mmol/L High 136-144 [facility] Comment on above: Order Comment: Speci men Type: BLOOD SPECIMENOrdering Facility: [facility] Address: [address] [place] [address] Performed By: #### 2 951-2 ####[facility] LABORATORYCLIA [id number] [place] [address] [place] Sodium [Moles/Vol] 153 mmol/L High 136-144 [facility] Comment on above: Order Comment: Speci men Type: BLOOD SPECIMENOrdering Facility: [facility] Address: [address] [place] [address] Performed By: #### 2 951-2 ####[facility] LABORATORYCLIA [id number] [place] [address] [place] Sodium [Moles/Vol] 158 mmol/L High 136-144 [facility] Comment on above: Order Comment: Speci men Type: BLOOD SPECIMENOrdering Facility: [facility] Address: [address] [place] [address] Performed By: #### 2 951-2 ####[facility] LABORATORYCLIA [id number] [place] [address] [place] aPTT PPPon 06-16-2021 aPTT Coag (PPP) [Time] 61.8 s High 23.0-32.4 [facility] Comment on above: Order Comment: Speci men Type: BLOOD SPECIMENOrdering Facility: [facility] Address: [address] [place] [address] Performed By: #### 1 4979-9 ####[facility] LABORATORYCLIA [id number] [place] [address] [place] aPTT Coag (PPP) [Time] 57.6 s High 23.0-32.4 [facility] Comment on above: Order Comment: Speci men Type: BLOOD SPECIMENOrdering Facility: [facility] Address: [address] [place] [address] Performed By: #### 1 4979-9 ####[facility] LABORATORYCLIA [id number] [address] [place] ALLIED HEALTHon 06-15-2021 ALLIED HEALTH Normal [facility] ALLIED HEALTH Normal [facility] ALLIED HEALTH Normal [facility] ALLIED HEALTH Normal [facility] ARTERIAL BLOOD GASESon 06-15 Base excess Calc (Bld) [Moles/Vol] 3 mmol/L High 0-2 [facility] Comment on above: Order Comment: Speci men Type: ARTERIAL BLOOD SPECIMENOrdering Facility: [facility] Address: [address] [place] [address] Performed By: #### A LLBG ####[facility] LABORATORYCLIA [id number] [address] [place] Body temperature 99.5 [degF] Normal [facility] Comment on above: Order Comment: Speci men Type: ARTERIAL BLOOD SPECIMENOrdering Facility: [facility] Address: [address] [place] [address] Performed By: #### A LLBG ####[facility] LABORATORYCLIA [id number] [place] [address] [place] CALCIUM IONIZED, PH CORRECTED 1.34 mmol/L High 1.08-1.30 [facility] Comment on above: Order Comment: Speci men Type: ARTERIAL BLOOD SPECIMENOrdering Facility: [facility] Address: [address] [place] [address] Performed By: #### A LLBG ####[facility]ORATORYCLIA [id number] [address] [place] Calcium.ionized (BldV) [Mass/Vol] 1.29 mmol/L Normal 1.08-1.30 [facility] Comment on above: Order Comment: Speci men Type: ARTERIAL BLOOD SPECIMENOrdering Facility: [facility] Address: [address] [place] [address] Performed By: #### A LLBG ####[facility] LABORATORYCLIA [id number] [address] [place] Carboxyhemoglobin (BldA) [Mass fraction] 1.3 % Normal 0.0-2.0 [facility] Comment on above: Order Comment: Speci men Type: ARTERIAL BLOOD SPECIMENOrdering Facility: [facility] Address: [address] [place] [address] Result Comment: Carb oxyhemoglobin Reference Range for Smokers: 2.0-8.0% Performed By: #### A LLBG ####[facility] LABORATORYCLIA [id number] [address] [place] CO2 (Bld) [Partial pressure] 37 mm Hg Normal 36-46 [facility] Comment on above: Order Comment: Speci men Type: ARTERIAL BLOOD SPECIMENOrdering Facility: [facility] Address: [address] [place] [address] Performed By: #### A LLBG ####[facility] LABORATORYCLIA [id number] [address] [place] CO2 [Moles/Vol] 24.6 mmol/L Normal 22-28 [facility] Comment on above: Order Comment: Speci men Type: ARTERIAL BLOOD SPECIMENOrdering Facility: [facility] Address: [address] [place] [address] Performed By: #### A LLBG ####[facility]ORATORYCLIA [id number] [address] [place] CO2 adjusted to patient's actual temperature (Bld) [Partial pressure] 38 mmHg Normal 36-46 [facility] Comment on above: Order Comment: Speci men Type: ARTERIAL BLOOD SPECIMENOrdering Facility: [facility] Address: [address] [place] [address] Performed By: #### A LLBG ####[facility] LABORATORYCLIA [id number] [address] [place] FIO2 100 % Normal [facility] Comment on above: Order Comment: Speci men Type: ARTERIAL BLOOD SPECIMENOrdering Facility: [facility] Address: [address] [place] [address] Performed By: #### A LLBG ####[facility] LABORATORYCLIA [id number] [address] Glucose [Mass/Vol] 159 mg/dL High 60-105 [facility] Comment on above: Order Comment: Speci men Type: ARTERIAL BLOOD SPECIMENOrdering Facility: [facility] Address: [address] [place] [address] Performed By: #### A LLBG ####[facility]ORATORYCLIA [id number] [address] [place] HCO3 (Bld) [Moles/Vol] 27 mmol/L High 22-26 [facility] Comment on above: Order Comment: Speci men Type: ARTERIAL BLOOD SPECIMENOrdering Facility: [facility] Address: [address] [place] [address] Performed By: #### A LLBG ####[facility]ORATORYCLIA [id number] [address] Hematocrit (Bld) [Volume fraction] 31.0 % Low 39.0-51.0 [facility] Comment on above: Order Comment: Speci men Type: ARTERIAL BLOOD SPECIMENOrdering Facility: [facility] Address: [address] [place] [address] Performed By: #### A LLBG ####[facility] LABORATORYCLIA [id number] [address] [place] Hemoglobin (Bld) [Mass/Vol] 10.0 g/dL Low 13.0-17.0 [facility] Comment on above: Order Comment: Speci men Type: ARTERIAL BLOOD SPECIMENOrdering Facility: [facility] Address: [address] [address] Performed By: #### A LLBG ####[facility]ATORYCLIA [id number] [address] Methemoglobin (Bld) [Mass fraction] % Normal 0.0-1.5 [facility] Comment on above: Order Comment: Speci men Type: ARTERIAL BLOOD SPECIMENOrdering Facility: [facility] Address: [facility] [place] [address] Performed By: #### A LLBG ####[facility]ORATORYCLIA [id number] [address] O2 THERAPY Ventilator Normal [facility] Comment on above: Order Comment: Speci men Type: ARTERIAL BLOOD SPECIMENOrdering Facility: [facility] Address: [address] [place] [address] Performed By: #### A LLBG ####[facility]ORATORYCLIA [id number] [address] Oxygen (Bld) [Partial pressure] 279 mm Hg High 85-95 [facility] Comment on above: Order Comment: Speci men Type: ARTERIAL BLOOD SPECIMENOrdering Facility: [facility] Address: [address] [place] [address] Performed By: #### A LLBG ####[facility]ORYCLIA [id number] [address] Oxygen adjusted to patient's actual temperature (Bld) [Partial pressure] 281 mmHg High 85-95 [facility] Comment on above: Order Comment: Speci men Type: ARTERIAL BLOOD SPECIMENOrdering Facility: [facility] Address: [address] [place] [address] Performed By: #### A LLBG ####[facility]ORATORYCLIA [id number] [place] [address] [place] OXYGEN SATURATION, ARTERIAL 100 % High 95-98 [facility] Comment on above: Order Comment: Speci men Type: ARTERIAL BLOOD SPECIMENOrdering Facility: [facility] Address: [address] [place] [address] Performed By: #### A LLBG ####[facility]ORATORYCLIA [id number] [address] [place] Oxyhemoglobin (BldA) [Mass fraction] 98 % Normal 95-98 [facility] Comment on above: Order Comment: Speci men Type: ARTERIAL BLOOD SPECIMENOrdering Facility: [facility] Address: [address] [place] [address] Performed By: #### A LLBG ####[facility] LABORATORYCLIA [id number] [place] [address] [place] pH (Bld) 7.47 [pH] High 7.35-7.45 [facility] Comment on above: Order Comment: Speci men Type: ARTERIAL BLOOD SPECIMENOrdering Facility: [facility] Address: [address] [place] [address] Performed By: #### A LLBG ####[facility]ORATORYCLIA [id number] [address] [place] pH adjusted to patient's actual temperature (Bld) 7.46 High 7.35-7.45 [facility] Comment on above: Order Comment: Speci men Type: ARTERIAL BLOOD SPECIMENOrdering Facility: [facility] Address: [address] [place] [address] Performed By: #### A LLBG ####[facility]ORATORYCLIA [id number] [place] [address] [place] Potassium [Moles/Vol] 3.6 mmol/L Normal 3.5-5.0 [facility] Comment on above: Order Comment: Speci men Type: ARTERIAL BLOOD SPECIMENOrdering Facility: [facility] Address: [address] [place] [address] Performed By: #### A LLBG ####[facility] LABORATORYCLIA [id number] [place] [address] [place] Sodium [Moles/Vol] 162 mmol/L High 136-144 [facility] Comment on above: Order Comment: Speci men Type: ARTERIAL BLOOD SPECIMENOrdering Facility: [facility] Address: [address] [place] [address] Performed By: #### A LLBG ####[facility]ORATORYCLIA [id number] [place] [address] [place] Base excess Calc (Bld) [Moles/Vol] 4 mmol/L High 0-2 [facility] Comment on above: Order Comment: Speci men Type: ARTERIAL BLOOD SPECIMENOrdering Facility: [facility] Address: [address] [place] [address] Performed By: #### A LLBG ####[facility]ORATORYCLIA [id number] [address] STATES [facility] Body temperature 100.58 [degF] Normal [facility] Comment on above: Order Comment: Speci men Type: ARTERIAL BLOOD SPECIMENOrdering Facility: [facility] Address: [address] [place] [address] Performed By: #### A LLBG ####[facility]ORATORYCLIA [id number] [address] [place] CALCIUM IONIZED, PH CORRECTED 1.34 mmol/L High 1.08-1.30 [facility] Comment on above: Order Comment: Speci men Type: ARTERIAL BLOOD SPECIMENOrdering Facility: [facility] Address: [address] [place] [address] Performed By: #### A LLBG ####[facility]ORATORYCLIA [id number] [address] [place] Calcium.ionized (BldV) [Mass/Vol] 1.33 mmol/L High 1.08-1.30 [facility] Comment on above: Order Comment: Speci men Type: ARTERIAL BLOOD SPECIMENOrdering Facility: [facility] Address: [address] [place] [address] Performed By: #### A LLBG ####[facility]ORATORYCLIA [id number] [address] Carboxyhemoglobin (BldA) [Mass fraction] 1.5 % Normal 0.0-2.0 [facility] Comment on above: Order Comment: Speci men Type: ARTERIAL BLOOD SPECIMENOrdering Facility: [facility] Address: [address] [place] [address] Result Comment: Carb oxyhemoglobin Reference Range for Smokers: 2.0-8.0% Performed By: #### A LLBG ####[facility]ATORYCLIA [id number] [address] CO2 (Bld) [Partial pressure] 46 mm Hg Normal 36-46 [facility] Comment on above: Order Comment: Speci men Type: ARTERIAL BLOOD SPECIMENOrdering Facility: [facility] Address: [address] [place] [address] Performed By: #### A LLBG ####[facility]ORATORYCLIA [id number] [address] [place] CO2 [Moles/Vol] 26.4 mmol/L Normal 22-28 [facility] Comment on above: Order Comment: Speci men Type: ARTERIAL BLOOD SPECIMENOrdering Facility: [facility] Address: [address] [place] [address] Performed By: #### A LLBG ####[facility]ORATORYCLIA [id number] [address] [place] CO2 adjusted to patient's actual temperature (Bld) [Partial pressure] 48 mmHg High 36-46 [facility] Comment on above: Order Comment: Speci men Type: ARTERIAL BLOOD SPECIMENOrdering Facility: [facility] Address: [address] [place] [address] Performed By: #### A LLBG ####[facility]ORATORYCLIA [id number] [address] [place] FIO2 100 % Normal [facility] Comment on above: Order Comment: Speci men Type: ARTERIAL BLOOD SPECIMENOrdering Facility: [facility] Address: [address] [place] [address] Performed By: #### A LLBG ####[facility]ORATORYCLIA [id number] [address] [place] Glucose [Mass/Vol] 132 mg/dL High 60-105 [facility] Comment on above: Order Comment: Speci men Type: ARTERIAL BLOOD SPECIMENOrdering Facility: [facility] Address: [address] [place] [address] Performed By: #### A LLBG ####[facility]ORATORYCLIA [id number] [place] [address] [place] HCO3 (Bld) [Moles/Vol] 29 mmol/L High 22-26 [facility] Comment on above: Order Comment: Speci men Type: ARTERIAL BLOOD SPECIMENOrdering Facility: [facility] Address: [address] [place] [address] Performed By: #### A LLBG ####[facility] LABORATORYCLIA [id number] [address] [place] Hematocrit (Bld) [Volume fraction] 32.3 % Low 39.0-51.0 [facility] Comment on above: Order Comment: Speci men Type: ARTERIAL BLOOD SPECIMENOrdering Facility: [facility] Address: [address] [place] [address] Performed By: #### A LLBG ####[facility]ORATORYCLIA [id number] [address] [place] Hemoglobin (Bld) [Mass/Vol] 10.4 g/dL Low 13.0-17.0 [facility] Comment on above: Order Comment: Speci men Type: ARTERIAL BLOOD SPECIMENOrdering Facility: [facility] Address: [address] [place] [address] Performed By: #### A LLBG ####[facility]ORATORYCLIA [id number] [address] [place] Methemoglobin (Bld) [Mass fraction] % Normal 0.0-1.5 [facility] Comment on above: Order Comment: Speci men Type: ARTERIAL BLOOD SPECIMENOrdering Facility: [facility] Address: [address] [address] Performed By: #### A LLBG ####[facility]ATORYCLIA [id number] [address] O2 THERAPY NR=Non-Rebreather Mask Normal [facility] Comment on above: Order Comment: Speci men Type: ARTERIAL BLOOD SPECIMENOrdering Facility: [facility] Address: [address] [place] [address] Performed By: #### A LLBG ####[facility]ORATORYCLIA [id number] [address] [place] Oxygen (Bld) [Partial pressure] 130 mm Hg High 85-95 [facility] Comment on above: Order Comment: Speci men Type: ARTERIAL BLOOD SPECIMENOrdering Facility: [facility] Address: [address] [place] [address] Performed By: #### A LLBG ####[facility]ORATORYCLIA [id number] [address] Oxygen adjusted to patient's actual temperature (Bld) [Partial pressure] 136 mmHg High 85-95 [facility] Comment on above: Order Comment: Speci men Type: ARTERIAL BLOOD SPECIMENOrdering Facility: [facility] Address: [address] [address] Performed By: #### A LLBG ####[facility]ATORYCLIA [id number] [address] [place] OXYGEN SATURATION, ARTERIAL 99 % High 95-98 [facility] Comment on above: Order Comment: Speci men Type: ARTERIAL BLOOD SPECIMENOrdering Facility: [facility] Address: [address] [place] [address] Performed By: #### A LLBG ####[facility]ATORYCLIA [id number] [address] [place] Oxyhemoglobin (BldA) [Mass fraction] 97 % Normal 95-98 [facility] Comment on above: Order Comment: Speci men Type: ARTERIAL BLOOD SPECIMENOrdering Facility: [facility] Address: [address] [place] [address] Performed By: #### A LLBG ####[facility]ORATORYCLIA [id number] [address] [place] pH (Bld) 7.41 [pH] Normal 7.35-7.45 [facility] Comment on above: Order Comment: Speci men Type: ARTERIAL BLOOD SPECIMENOrdering Facility: [facility] Address: [address] [place] [address] Performed By: #### A LLBG ####[facility]ORATORYCLIA [id number] [address] pH adjusted to patient's actual temperature (Bld) 7.40 Normal 7.35-7.45 [facility] Comment on above: Order Comment: Speci men Type: ARTERIAL BLOOD SPECIMENOrdering Facility: [facility] Address: [address] [place] [address] Performed By: #### A LLBG ####[facility]ORATORYCLIA [id number] [address] [place] Potassium [Moles/Vol] 3.8 mmol/L Normal 3.5-5.0 [facility] Comment on above: Order Comment: Speci men Type: ARTERIAL BLOOD SPECIMENOrdering Facility: [facility] Address: [address] [place] [address] Performed By: #### A LLBG ####[facility]ORATORYCLIA [id number] [address] [place] Sodium [Moles/Vol] 166 mmol/L High 136-144 [facility] Comment on above: Order Comment: Speci men Type: ARTERIAL BLOOD SPECIMENOrdering Facility: [facility] Address: [address] [place] [address] Performed By: #### A LLBG ####[facility]ORATORYCLIA [id number] [place], [place] [address] [place] [address] [place] Bacteria Bld Culton 06-15-19 Bacteria identified Cx Nom (Bld) CULTURE, BLOOD: No growth 5 days Normal [facility] Comment on above: Performed By: #### 6 00-7 ####[facility]ORATORYCLIA [id number] [address] [place] Basic metabolic 2000 panelon 06-15-2021 Anion gap [Moles/Vol] 9 mmol/L Normal 9-18 [facility] Comment on above: Order Comment: Speci men Type: BLOOD SPECIMEN Performed By: #### 2 4321-2, 2776-05, ####[facility]ORATORYCLIA [id number] [address] [place] Calcium [Mass/Vol] 9.0 mg/dL Normal 8.5-10.2 [facility] Comment on above: Order Comment: Speci men Type: BLOOD SPECIMEN Performed By: #### 2 4321-2, 2776-05, ####[facility]ORATORYCLIA [id number] [address] [place] Chloride [Moles/Vol] 125 mmol/L High 97-105 [facility] Comment on above: Order Comment: Speci men Type: BLOOD SPECIMEN Performed By: #### 2 4321-2, 2776-05, ####[facility]ORYCLIA [id number] [address] [place] CO2 [Moles/Vol] 29 mmol/L Normal 22-30 [facility] Comment on above: Order Comment: Speci men Type: BLOOD SPECIMEN Performed By: #### 2 4321-2, 2776-05, ####[facility]ATORYCLIA [id number] [place] [address] [place] Creatinine [Mass/Vol] 0.81 mg/dL Normal 0.73-1.22 [facility] Comment on above: Order Comment: Speci men Type: BLOOD SPECIMEN Performed By: #### 2 4321-2, 2777-1, ####[facility]PITALIA [id number] [place] [id number] [place] GFR/1.73 sq M.predicted MDRD (S/P/Bld) [Vol rate/Area] mL/min/{1.73_m2} Normal [facility] Comment on above: Order Comment: Speci men Type: BLOOD SPECIMEN Result Comment: >60e GFR (Estimated GFR) Units of measure: mL/min/1.73 meters squaredeGFR is derived from the reexpressed MDRD Study equation using the following parameters: serum creatinine, age, gender and race. The creatinine assay has been calibrated to be traceable to IDMS. An eGFR <60 mL/min/1.73m2 for >3 months is consistent with chronic kidney disease. Refer to KDOQI guidelines for clinical interpretation. In patients with unstable renal function, e.g. those with acute kidney injury, the eGFR may not accurately reflect actual GFR. Performed By: #### 2 4321-2, 2777-, ####[facility] HOSPITALIA [id number] [place] [id number] [place] Glucose [Mass/Vol] 124 mg/dL High 74-99 [facility] Comment on above: Order Comment: Speci men Type: BLOOD SPECIMEN Result Comment: The [place] [employer] (ADA) provides guidance for cutoff values for fasting glucose and random glucose. The ADA defines fasting as no caloric intake for at least 8 hours. Fasting plasma glucose results between 100 to 125 mg/dL indicate increased risk for diabetes (prediabetes).Fasting plasma glucose results greater than or equal to 126 mg/dL meet the criteria for diagnosis of diabetes. In the absence of unequivocal hyperglycemia, results should be confirmed by repeat testing. In a patient with classic symptoms of hyperglycemia or hyperglycemic crisis, random plasma glucose results greater than or equal to 200 mg/dL meet the criteria for diagnosis of diabetes.Reference: Standards of Medical Care in Diabetes 2016, [place] [employer]. Diabetes Care. 2016.39(Suppl 1). Performed By: #### 2 4321-2, 2777-, ####[facility]ATORYCLIA [id number] [place], [place] [id number] [place] [address] [place] [facility] Potassium [Moles/Vol] 3.8 mmol/L Normal 3.7-5.1 [facility] Comment on above: Order Comment: Speci men Type: BLOOD SPECIMEN Performed By: #### 2 4321-2, 2776-1, ####[facility]ATORYCLIA [id number] [place], [place] [id number] [place] [address] [place] [facility] Sodium [Moles/Vol] 163 mmol/L High 136-144 [facility] Comment on above: Order Comment: Speci men Type: BLOOD SPECIMEN Performed By: #### 2 4321-2, 2776-05, ####[facility] LABORATORYCLIA [id number] [address] STATES [facility] Urea nitrogen [Mass/Vol] 35 mg/dL High 9-24 [facility] Comment on above: Order Comment: Speci men Type: BLOOD SPECIMEN Performed By: #### 2 4321-2, 2776-05, ####[facility]ORATORYCLIA [id number] [address] STATES [facility] CBC panel Auto (Bld)on 06-15 Erythrocyte distribution width (RBC) [Ratio] 16.3 % High 11.5-15.0 [facility] Comment on above: Order Comment: Speci men Type: BLOOD SPECIMENOrdering Facility: [facility] Address: [address] [place] [address] Performed By: #### 5 8410-2 ####[facility] LABORATORYCLIA [id number] [address] Hematocrit (Bld) [Volume fraction] 30.0 % Low 39.0-51.0 [facility] Comment on above: Order Comment: Speci men Type: BLOOD SPECIMENOrdering Facility: [facility] Address: [address] [place] [address] Performed By: #### 5 8410-2 ####[facility]ORATORYCLIA [id number] [address] OF [facility] Hemoglobin (Bld) [Mass/Vol] 8.9 g/dL Low 13.0-17.0 [facility] Comment on above: Order Comment: Speci men Type: BLOOD SPECIMENOrdering Facility: [facility] Address: [address] [place] [address] Performed By: #### 5 8410-2 ####[facility] LABORATORYCLIA [id number] [address] MCH (RBC) [Entitic mass] 28.7 pg Normal 26.0-34.0 [facility] Comment on above: Order Comment: Speci men Type: BLOOD SPECIMENOrdering Facility: [facility] Address: [address] [place] [address] Performed By: #### 5 8410-2 ####[facility]ORATORYCLIA [id number] [address] MCHC (RBC) [Mass/Vol] 29.7 g/dL Low 30.5-36.0 [facility] Comment on above: Order Comment: Speci men Type: BLOOD SPECIMENOrdering Facility: [facility] Address: [address] [place] [address] Performed By: #### 5 8410-2 ####[facility]ORATORYCLIA [id number] [address] [facility] MCV (RBC) [Entitic vol] 96.8 fL Normal 80.0-100.0 [facility] Comment on above: Order Comment: Speci men Type: BLOOD SPECIMENOrdering Facility: [facility] Address: [address] [place] [address] Performed By: #### 5 8410-2 ####[facility]ORATORYCLIA [id number] [address] [facility] Nucleated RBC (Bld) [#/Vol] 10*3/uL Normal <0.01 [facility] Comment on above: Order Comment: Speci men Type: BLOOD SPECIMENOrdering Facility: [facility] Address: [address] [place] [address] Performed By: #### 5 8410-2 ####[facility]ORATORYCLIA [id number] [address] Platelet mean volume (Bld) [Entitic vol] 12.3 fL Normal 9.0-12.7 [facility] Comment on above: Order Comment: Speci men Type: BLOOD SPECIMENOrdering Facility: [facility] Address: [address] [place] [address] Performed By: #### 5 8410-2 ####[facility]ORATORYCLIA [id number] [address] [place] Platelets (Bld) [#/Vol] 226 10*3/uL Normal 150-400 [facility] Comment on above: Order Comment: Speci men Type: BLOOD SPECIMENOrdering Facility: [facility] Address: [address] [place] [address] Performed By: #### 5 8410-2 ####[facility]ORATORYCLIA [id number] [address] [place] RBC (Bld) [#/Vol] 3.10 10*6/uL Low 4.20-6.00 [facility] Comment on above: Order Comment: Speci men Type: BLOOD SPECIMENOrdering Facility: [facility] Address: [address] [place] [address] Performed By: #### 5 8410-2 ####[facility]ORATORYCLIA [id number] [address] [place] WBC (Bld) [#/Vol] 10.77 10*3/uL Normal 3.70-11.00 [facility] Comment on above: Order Comment: Speci men Type: BLOOD SPECIMENOrdering Facility: [facility] Address: [address] [place] [address] Performed By: #### 5 8410-2 ####[facility]ORATORYCLIA [id number] [address] Erythrocyte distribution width (RBC) [Ratio] 16.2 % High 11.5-15.0 [facility] Comment on above: Order Comment: Speci men Type: BLOOD SPECIMENOrdering Facility: [facility] Address: [address] [place] [address] Performed By: #### 5 8410-2 ####[facility]ORATORYCLIA [id number] [address] Hematocrit (Bld) [Volume fraction] 34.8 % Low 39.0-51.0 [facility] Comment on above: Order Comment: Speci men Type: BLOOD SPECIMENOrdering Facility: [facility] Address: [address] [place] [address] Performed By: #### 5 8410-2 ####[facility]ORATORYCLIA [id number] [address] [facility] Hemoglobin (Bld) [Mass/Vol] 10.0 g/dL Low 13.0-17.0 [facility] Comment on above: Order Comment: Speci men Type: BLOOD SPECIMENOrdering Facility: [facility] Address: [address] [place] [address] Performed By: #### 5 8410-2 ####[facility]ORATORYCLIA [id number] [address] STATES [facility] MCH (RBC) [Entitic mass] 27.5 pg Normal 26.0-34.0 [facility] Comment on above: Order Comment: Speci men Type: BLOOD SPECIMENOrdering Facility: [facility] Address: [address] [place] [address] Performed By: #### 5 8410-2 ####[facility]ORATORYCLIA [id number] [address] MCHC (RBC) [Mass/Vol] 28.7 g/dL Low 30.5-36.0 [facility] Comment on above: Order Comment: Speci men Type: BLOOD SPECIMENOrdering Facility: [facility] Address: [address] [address] Performed By: #### 5 8410-2 ####[facility]ORATORYCLIA [id number] [address] MCV (RBC) [Entitic vol] 95.6 fL Normal 80.0-100.0 [facility] Comment on above: Order Comment: Speci men Type: BLOOD SPECIMENOrdering Facility: [facility] Address: [address] [place] [address] Performed By: #### 5 8410-2 ####[facility]ORATORYCLIA [id number] [address] Nucleated RBC (Bld) [#/Vol] 10*3/uL Normal <0.01 [facility] Comment on above: Order Comment: Speci men Type: BLOOD SPECIMENOrdering Facility: [facility] Address: [address] [place] [address] Performed By: #### 5 8410-2 ####[facility]ORATORYCLIA [id number] [address] STATES [facility] Platelet mean volume (Bld) [Entitic vol] 11.9 fL Normal 9.0-12.7 [facility] Comment on above: Order Comment: Speci men Type: BLOOD SPECIMENOrdering Facility: [facility] Address: [address] [place] [address] Performed By: #### 5 8410-2 ####[facility]ORATORYCLIA [id number] [address] Platelets (Bld) [#/Vol] 246 10*3/uL Normal 150-400 [facility] Comment on above: Order Comment: Speci men Type: BLOOD SPECIMENOrdering Facility: [facility] Address: [address] [place] [address] Performed By: #### 5 8410-2 ####[facility]ORATORYCLIA [id number] [place] [address] [place] RBC (Bld) [#/Vol] 3.64 10*6/uL Low 4.20-6.00 [facility] Comment on above: Order Comment: Speci men Type: BLOOD SPECIMENOrdering Facility: [facility] Address: [address] [place] [address] Performed By: #### 5 8410-2 ####[facility]ORATORYCLIA [id number] [address] WBC (Bld) [#/Vol] 11.45 10*3/uL High 3.70-11.00 [facility] Comment on above: Order Comment: Speci men Type: BLOOD SPECIMENOrdering Facility: [facility] Address: [address] [place] [address] Performed By: #### 5 8410-2 ####[facility]ORATORYCLIA [id number] [address] Erythrocyte distribution width (RBC) [Ratio] 15.9 % High 11.5-15.0 [facility] Comment on above: Order Comment: Speci men Type: BLOOD SPECIMEN Performed By: #### 5 8410-2 ####[facility]ORATORYCLIA [id number] [address] Hematocrit (Bld) [Volume fraction] 35.8 % Low 39.0-51.0 [facility] Comment on above: Order Comment: Speci men Type: BLOOD SPECIMEN Performed By: #### 5 8410-2 ####[facility]ORATORYCLIA [id number] [address] Hemoglobin (Bld) [Mass/Vol] 10.4 g/dL Low 13.0-17.0 [facility] Comment on above: Order Comment: Speci men Type: BLOOD SPECIMEN Performed By: #### 5 8410-2 ####[facility]ATORYCLIA [id number] [address] MCH (RBC) [Entitic mass] 28.0 pg Normal 26.0-34.0 [facility] Comment on above: Order Comment: Speci men Type: BLOOD SPECIMEN Performed By: #### 5 8410-2 ####[facility]ORATORYCLIA [id number] [address] MCHC (RBC) [Mass/Vol] 29.1 g/dL Low 30.5-36.0 [facility] Comment on above: Order Comment: Speci men Type: BLOOD SPECIMEN Performed By: #### 5 8410-2 ####[facility]ORATORYCLIA [id number] [address] MCV (RBC) [Entitic vol] 96.2 fL Normal 80.0-100.0 [facility] Comment on above: Order Comment: Speci men Type: BLOOD SPECIMEN Performed By: #### 5 8410-2 ####[facility]ATORYCLIA [id number] [address] Nucleated RBC (Bld) [#/Vol] 10*3/uL Normal <0.01 [facility] Comment on above: Order Comment: Speci men Type: BLOOD SPECIMEN Performed By: #### 5 8410-2 ####[facility]ORATORYCLIA [id number] [address] Platelet mean volume (Bld) [Entitic vol] 11.6 fL Normal 9.0-12.7 [facility] Comment on above: Order Comment: Speci men Type: BLOOD SPECIMEN Performed By: #### 5 8410-2 ####[facility]ORATORYCLIA [id number] [address] Platelets (Bld) [#/Vol] 265 10*3/uL Normal 150-400 [facility] Comment on above: Order Comment: Speci men Type: BLOOD SPECIMEN Performed By: #### 5 8410-2 ####[facility]ATORYCLIA [id number] [address] RBC (Bld) [#/Vol] 3.72 10*6/uL Low 4.20-6.00 [facility] Comment on above: Order Comment: Speci men Type: BLOOD SPECIMEN Performed By: #### 5 8410-2 ####[facility]ORATORYCLIA [id number] [address] [facility] WBC (Bld) [#/Vol] 12.24 10*3/uL High 3.70-11.00 [facility] Comment on above: Order Comment: Speci men Type: BLOOD SPECIMEN Performed By: #### 5 8410-2 ####[facility]ORATORYCLIA [id number] [address] CONSULTon 06-15-2021 CONSULT Normal [facility] CONSULT Normal [facility] CONSULT Normal [facility] CT BRAIN WO IVCONon 06-15-19 CT BRAIN WO IVCON Normal [facility] CT CHEST W IVCON PEon 2021 CT CHEST W IVCON PE Invalid Interpretation Code [facility] Chloride Unsp time (U) [Mole s/Vol]on 06-15-2021 Chloride (U) [Moles/Vol] 28 mmol/L Normal 16-250 [facility] Comment on above: Order Comment: Speci men Type: URINE SPECIMENOrdering Facility: [facility] Address: [address] [place] [address] Performed By: #### U TPR, 01892-6, 96313-0, 43716-6 ####[facility]ORATORYCLIA [id number] [address] Comprehensive metabolic 2000 panelon 06-15-2021 Albumin [Mass/Vol] 2.8 g/dL Low 3.9-4.9 [facility] Comment on above: Order Comment: Speci men Type: BLOOD SPECIMENOrdering Facility: [facility] Address: [address] [place] [address] Performed By: #### 2 4323-8 ####[facility]ORATORYCLIA [id number] [address] ALP [Catalytic activity/Vol] 74 U/L Normal 38-113 [facility] Comment on above: Order Comment: Speci men Type: BLOOD SPECIMENOrdering Facility: [facility] Address: [address] [place] [address] Performed By: #### 2 4323-8 ####[facility]ORATORYCLIA [id number] [address] [place] ALT With P-5'-P [Catalytic activity/Vol] 50 U/L Normal 10-54 [facility] Comment on above: Order Comment: Speci men Type: BLOOD SPECIMENOrdering Facility: [facility] Address: [address] [place] [address] Performed By: #### 2 4323-8 ####[facility]ORATORYCLIA [id number] [address] [place] Anion gap [Moles/Vol] 12 mmol/L Normal 9-18 [facility] Comment on above: Order Comment: Speci men Type: BLOOD SPECIMENOrdering Facility: [facility] Address: [address] [place] [address] Performed By: #### 2 4323-8 ####[facility]ORATORYCLIA [id number] [address] [facility] AST With P-5'-P [Catalytic activity/Vol] 36 U/L Normal 14-40 [facility] Comment on above: Order Comment: Speci men Type: BLOOD SPECIMENOrdering Facility: [facility] Address: [address] [place] [address] Performed By: #### 2 4323-8 ####[facility]ORATORYCLIA [id number] [address] [place] Bilirubin [Mass/Vol] 0.5 mg/dL Normal 0.2-1.3 [facility] Comment on above: Order Comment: Speci men Type: BLOOD SPECIMENOrdering Facility: [facility] Address: [address] [place] [address] Performed By: #### 2 4323-8 ####[facility]ORATORYCLIA [id number] [place] [address] [place] Calcium [Mass/Vol] 8.8 mg/dL Normal 8.5-10.2 [facility] Comment on above: Order Comment: Speci men Type: BLOOD SPECIMENOrdering Facility: [facility] Address: [address] [place] [address] Performed By: #### 2 4323-8 ####[facility]ORATORYCLIA [id number] [place] [address] [place] Chloride [Moles/Vol] 126 mmol/L High 97-105 [facility] Comment on above: Order Comment: Speci men Type: BLOOD SPECIMENOrdering Facility: [facility] Address: [address] [place] [address] Performed By: #### 2 4323-8 ####[facility]ORATORYCLIA [id number] [place] [address] [place] CO2 [Moles/Vol] 24 mmol/L Normal 22-30 [facility] Comment on above: Order Comment: Speci men Type: BLOOD SPECIMENOrdering Facility: [facility] Address: [address] [place] [address] Performed By: #### 2 4323-8 ####[facility]ORATORYCLIA [id number] [place] [address] [place] Creatinine [Mass/Vol] 0.84 mg/dL Normal 0.73-1.22 [facility] Comment on above: Order Comment: Speci men Type: BLOOD SPECIMENOrdering Facility: [facility] Address: [address] [place] [address] Performed By: #### 2 4323-8 ####[facility]ORATORYCLIA [id number] [place] [address] [place] GFR/1.73 sq M.predicted MDRD (S/P/Bld) [Vol rate/Area] mL/min/{1.73_m2} Normal [facility] Comment on above: Order Comment: Speci men Type: BLOOD SPECIMENOrdering Facility: [facility] Address: [address] [id number] Result Comment: >60e GFR (Estimated GFR) Units of measure: mL/min/1.73 meters squaredeGFR is derived from the reexpressed MDRD Study equation using the following parameters: serum creatinine, age, gender and race. The creatinine assay has been calibrated to be traceable to IDMS. An eGFR <60 mL/min/1.73m2 for >3 months is consistent with chronic kidney disease. Refer to KDOQI guidelines for clinical interpretation. In patients with unstable renal function, e.g. those with acute kidney injury, the eGFR may not accurately reflect actual GFR. Performed By: #### 2 4323-8 ####[facility] LABORATORYCLIA [id number] [place] [address] [place] Glucose [Mass/Vol] 142 mg/dL High 74-99 [facility] Comment on above: Order Comment: Speccara feldman Type: BLOOD SPECIMENOrdering Facility: [facility] Address: [address] [address] Result Comment: The [place] [employer] (ADA) provides guidance for cutoff values for fasting glucose and random glucose. The ADA defines fasting as no caloric intake for at least 8 hours. Fasting plasma glucose results between 100 to 125 mg/dL indicate increased risk for diabetes (prediabetes).Fasting plasma glucose results greater than or equal to 126 mg/dL meet the criteria for diagnosis of diabetes. In the absence of unequivocal hyperglycemia, results should be confirmed by repeat testing. In a patient with classic symptoms of hyperglycemia or hyperglycemic crisis, random plasma glucose results greater than or equal to 200 mg/dL meet the criteria for diagnosis of diabetes.Reference: Standards of Medical Care in Diabetes 2016, [place] [employer]. Diabetes Care. 2016.39(Suppl 1). Performed By: #### 2 4323-8 ####[facility] LABORATORYCLIA [id number] [place] [address] [place] Potassium [Moles/Vol] 3.8 mmol/L Normal 3.7-5.1 [facility] Comment on above: Order Comment: Speccara men Type: BLOOD SPECIMENOrdering Facility: [facility] Address: [address] Performed By: #### 2 4323-8 ####[facility]ORATORYCLIA [id number] [place] [address] [place] Protein [Mass/Vol] 6.1 g/dL Low 6.3-8.0 [facility] Comment on above: Order Comment: Speci men Type: BLOOD SPECIMENOrdering Facility: [facility] Address: [address] [place] [address] Performed By: #### 2 4323-8 ####[facility] LABORATORYCLIA [id number] [place] [address] [place] Sodium [Moles/Vol] 162 mmol/L High 136-144 [facility] Comment on above: Order Comment: Speci men Type: BLOOD SPECIMENOrdering Facility: [facility] Address: [address] [place] [address] Performed By: #### 2 4323-8 ####[facility]ORATORYCLIA [id number] [address] [place] Urea nitrogen [Mass/Vol] 33 mg/dL High 9-24 [facility] Comment on above: Order Comment: Speci men Type: BLOOD SPECIMENOrdering Facility: [facility] Address: [address] [place] [address] Performed By: #### 2 4323-8 ####[facility] LABORATORYCLIA [id number] [address] [place] Creatinine Unsp time (U) [Ma ss/Vol]on 06-15-2021 Creatinine (U) [Mass/Vol] 87.0 mg/dL Normal 46.8-314.5 [facility] Comment on above: Order Comment: Speci men Type: URINE SPECIMENOrdering Facility: [facility] Address: [address] [place] [address] Performed By: #### U TPR, 01859-1, 11285-2, 80627-0 ####[facility] LABORATORYCLIA [id number] [address] [place] HIGH SENSITIVITY TROPONIN To n 06-15-2021 HIGH SENSITIVITY TAMIKO 23 ng/L High <12 [facility] Comment on above: Order Comment: Shira feldman Type: BLOOD SPECIMENOrdering Facility: [facility] Address: [address] [place] [address] Result Comment: When assessing risk for acute coronary syndromes: In patients undergoing blood draw greater than or equal to 2 hours from symptom onset, with history of very low to moderate risk and non-ischemic ECG, an initial hs-Troponin T less than 12 ng/L AND a 1 hour delta hs-Troponin T less than 3 ng/L should be considered very low risk for 30 day MACE. Performed By: #### P ROCAL, 47097-0, HSTNT ####[facility]ITALCLIA [id number] [place] [address] [place] Lactate (Bld) [Moles/Vol]on 06-15-2021 Lactate [Moles/Vol] 0.8 mmol/L Normal 0.5-2.2 [facility] Comment on above: Order Comment: Sh[facility] Type: BLOOD SPECIMENOrdering Facility: [facility] Address: [address] [place] [address] Performed By: #### 3 2693-4 ####[facility] [id number] [place] [address] [place] [facility]15 Magnesium [Mass/Vol] 3.0 mg/dL High 1.7-2.3 [facility] Comment on above: Order Comment: Shira feldman Type: BLOOD SPECIMEN Performed By: #### 2 4321-2, 2777-1, 95054-5 ####[facility] LABORATORYCLIA [id number] [place] [address] [place] NT-proBNP SerPl-mCncon 06-15 Natriuretic peptide.B prohormone N-Terminal [Mass/Vol] 265 pg/mL High <125 [facility] Comment on above: Order Comment: [facility] Type: BLOOD SPECIMENOrdering Facility: [facility] Address: [address] [place] [address] Performed By: #### P JULIANNE, 54491-5, HSTNT ####[facility] LABORATORYCLIA [id number] [address] [id number] [place] [facility] Osmolality Uron 06-15-2021 Osmolality (U) [Osmolality] 606 mosm/kg Normal 50-1,200 [facility] Comment on above: Order Comment: Speci men Type: URINE SPECIMENOrdering Facility: [facility] Address: [address] [place] [address] Performed By: #### 2 695-5 ####[facility]PITALIA [id number] [address] PROCALCITONIN (LAB)on 2021 Procalcitonin [Mass/Vol] 0.21 ng/mL High <0.09 [facility] Comment on above: Order Comment: Speci men Type: BLOOD SPECIMENOrdering Facility: [facility] Address: [address] [place] [address] Result Comment: For a guided interpretation of test results, please visit the Change in Procalcitonin Calculator, [email or web address]. Performed By: #### P JULIANNE, 2951-2 ####[facility] LABORATORYCLIA [id number] [address] [place] [facility] Procalcitonin [Mass/Vol] 0.17 ng/mL High <0.09 [facility] Comment on above: Order Comment: Speci men Type: BLOOD SPECIMENOrdering Facility: [facility] Address: [address] [place] [address] Result Comment: For a guided interpretation of test results, please visit the Change in Procalcitonin Calculator, [email or web address]. Performed By: #### P JULIANNE, 64968-5, HSTNT ####[facility] LABORATORYCLIA [id number] [address] [id number] [place] PROTEIN RANDOM URon 06-15-19 22 Protein (U) [Mass/Vol] 175 mg/dL High 0-20 [facility] Comment on above: Order Comment: Speci men Type: URINE SPECIMENOrdering Facility: [facility] Address: [address] [place] [address] Performed By: #### U TPR, 56777-9, 77974-8, 45701-5 ####[facility] LABORATORYCLIA [id number] [place] [address] [place] PT panel Coag (PPP)on 2021 INR Coag (PPP) [Relative time] 1.1 {INR} Normal <1.4 [facility] Comment on above: Order Comment: Speci men Type: BLOOD SPECIMENOrdering Facility: [facility] Address: [address] [place] [address] Result Comment: Yris min K Antagonist (VKA) Therapeutic Range: INR 2 to 3 (Target INR of 2.5)Note: For patients treated with VKA drugs, such as warfarin, the [employer] 2012 Guideline recommends a therapeutic INR range of 2 to 3 (target INR of 2.5). This recommendation includes high-risk patients with antiphospholipid syndrome with previous arterial or venous thromboembolism, current-generation mechanical or bioprosthetic aortic heart valve replacement.Note: Patients with mechanical aortic valve replacement and additional risk factors for thromboembolic events (atrial fibrillation, previous thromboembolism, LV dysfunction, hypercoagulable conditions) or an older generation mechanical AVR (i.e., ball in-Cage) or any mechanical MVR should have a INR therapeutic range of 2.5 to 3.5 (target INR of 3).Jeffy GH, et al. Chest 2012, 141:7S-47SNishimura RA, et al. [facility] 2017, 70: 252-289 Performed By: #### 3 4528-0, 94425-6 ####[facility] LABORATORYCLIA [id number] [place] [address] [place] PT Coag (PPP) [Time] 11.4 s Normal <13.1 [facility] Comment on above: Order Comment: Speci men Type: BLOOD SPECIMENOrdering Facility: [facility] Address: [address] [place] [address] Performed By: #### 3 4528-0, 45077-9 ####[facility] LABORATORYCLIA [id number] [place] [address] [place] Phosphate SerPl-mCncon 06-15 Phosphate [Mass/Vol] 2.6 mg/dL Low 2.7-4.8 [facility] Comment on above: Order Comment: Speci men Type: BLOOD SPECIMEN Performed By: #### 2 4321-2, 2777-1, 37027-3 ####[facility] LABORATORYCLIA [id number] [place] [address] [place] Sodium ?Tm Ur-sCncon 022 Sodium Unsp time (U) [Moles/Vol] 34 mmol/L Normal 14-216 [facility] Comment on above: Order Comment: Speci men Type: URINE SPECIMENOrdering Facility: [facility] Address: [address] [place] [address] Performed By: #### U TPR, 22683-9, 11862-5, 56293-7 ####[facility] LABORATORYCLIA [id number] [place] [address] [place] Sodium SerPl-sCncon 06-15-19 22 Sodium [Moles/Vol] 159 mmol/L High 136-144 [facility] Comment on above: Order Comment: Speci men Type: BLOOD SPECIMENOrdering Facility: [facility] Address: [address] [place] [address] Performed By: #### P JULIANNE, 2951-2 ####[facility] LABORATORYCLIA [id number] [place] [address] [place] THERAPY NTon 06-15-2021 THERAPY NT Normal [facility] Urinalysis complete panel (U )on 06-15-2021 Bacteria LM.HPF (Urine sed) [#/Area] None Seen Normal None Seen [facility] Comment on above: Order Comment: Speci men Type: URINE SPECIMENOrdering Facility: [facility] Address: [address] [place] [address] Performed By: #### 2 4356-8 ####[facility] LABORATORYCLIA [id number] [address] Bilirubin Ql (U) Negative Normal Negative [facility] Comment on above: Order Comment: Speci men Type: URINE SPECIMENOrdering Facility: [facility] Address: [address] [place] [address] Performed By: #### 2 4356-8 ####[facility] LABORATORYCLIA [id number] [address] Clarity (Unsp spec) Cloudy Abnormal Clear [facility] Comment on above: Order Comment: Speci men Type: URINE SPECIMENOrdering Facility: [facility] Address: [address] [place] [address] Performed By: #### 2 4356-8 ####[facility] LABORATORYCLIA [id number] [address] Color (U) Yellow Normal Yellow [facility] Comment on above: Order Comment: Speci men Type: URINE SPECIMENOrdering Facility: [facility] Address: [address] [place] [address] Performed By: #### 2 4356-8 ####[facility] LABORATORYCLIA [id number] [address] Epithelial cells LM.HPF (Urine sed) [#/Area] 7.1 /[HPF] Normal [facility] Comment on above: Order Comment: Speci men Type: URINE SPECIMENOrdering Facility: [facility] Address: [address] [place] [address] Performed By: #### 2 4356-8 ####[facility] LABORATORYCLIA [id number] [address] Glucose Test strip (U) [Mass/Vol] Negative Normal Negative [facility] Comment on above: Order Comment: Speci men Type: URINE SPECIMENOrdering Facility: [facility] Address: [address] [place] [address] Performed By: #### 2 4356-8 ####[facility] LABORATORYCLIA [id number] [address] Granular casts (Urine sed) [#/Area] /[LPF] Abnormal 0 /LPF [facility] Comment on above: Order Comment: Speci men Type: URINE SPECIMENOrdering Facility: [facility] Address: [address] [place] [address] Performed By: #### 2 4356-8 ####[facility] LABORATORYCLIA [id number] [address] Hemoglobin Ql (U) Moderate Abnormal Negative [facility] Comment on above: Order Comment: Speci men Type: URINE SPECIMENOrdering Facility: [facility] Address: [address] [place] [address] Performed By: #### 2 4356-8 ####[facility] LABORATORYCLIA [id number] [address] Hyaline casts (Urine sed) [#/Area] /[LPF] Abnormal 0 /LPF [facility] Comment on above: Order Comment: Speci men Type: URINE SPECIMENOrdering Facility: [facility] Address: [address] [place] [address] Performed By: #### 2 4356-8 ####[facility] LABORATORYCLIA [id number] [address] Ketones Ql (U) Negative Normal Negative [facility] Comment on above: Order Comment: Speci men Type: URINE SPECIMENOrdering Facility: [facility] Address: [address] [place] [address] Performed By: #### 2 4356-8 ####[facility] LABORATORYCLIA [id number] [address] Leukocyte esterase Test strip Ql (U) Negative Normal Negative [facility] Comment on above: Order Comment: Speci men Type: URINE SPECIMENOrdering Facility: [facility] Address: [address] [place] [address] Performed By: #### 2 4356-8 ####[facility] LABORATORYCLIA [id number] [address] Nitrite Ql (U) Negative Normal Negative [facility] Comment on above: Order Comment: Speci men Type: URINE SPECIMENOrdering Facility: [facility] Address: [address] [place] [address] Performed By: #### 2 4356-8 ####[facility] LABORATORYCLIA [id number] [address] [place] pH (U) 6.0 [pH] Normal 5.0-8.0 [facility] Comment on above: Order Comment: Speci men Type: URINE SPECIMENOrdering Facility: [facility] Address: [address] [place] [address] Performed By: #### 2 4356-8 ####[facility] [id number] [address] Protein (U) [Mass/Vol] 100 mg/dL Abnormal Negative [facility] Comment on above: Order Comment: Speci men Type: URINE SPECIMENOrdering Facility: [facility] Address: [address] [place] [address] Performed By: #### 2 4356-8 ####[facility]CL[facility] [id number] [address] RBC LM.HPF (Urine sed) [#/Area] 0-3 /HPF Normal 0-3 /HPF [facility] Comment on above: Order Comment: Speci men Type: URINE SPECIMENOrdering Facility: [facility] Address: [address] [place] [address] Performed By: #### 2 4356-8 ####[facility]PITALIA [id number] [address] Specific gravity (U) [Rel density] 1.024 Normal 1.005-1.030 [facility] Comment on above: Order Comment: Speci men Type: URINE SPECIMENOrdering Facility: [facility] Address: [address] [place] [address] Performed By: #### 2 4356-8 ####[facility] LABORATORYCLIA [id number] [address] Urobilinogen Ql (U) 0.2 EU/dL Normal 0.2-1.0 EU/dL [facility] Comment on above: Order Comment: Speci men Type: URINE SPECIMENOrdering Facility: [facility] Address: [address] [place] [address] Performed By: #### 2 4356-8 ####[facility] LABORATORYCLIA [id number] [address] WBC LM.HPF (Urine sed) [#/Area] 0-5 /HPF Normal 0-5 /HPF [facility] Comment on above: Order Comment: Speci men Type: URINE SPECIMENOrdering Facility: [facility] Address: [address] [place] [address] Performed By: #### 2 4356-8 ####[facility] LABORATORYCLIA [id number] [address] XR CHEST 1V FRONTALon 2021 XR CHEST 1V FRONTAL Normal [facility] XR CHEST 1V FRONTAL PORTon 0 06-15-2021 XR CHEST 1V FRONTAL PORT Normal [facility] XR CHEST 1V FRONTAL PORT Normal [facility] aPTT PPPon 06-15-2021 aPTT Coag (PPP) [Time] 30.9 s Normal 23.0-32.4 [facility] Comment on above: Order Comment: Speci men Type: BLOOD SPECIMENOrdering Facility: [facility] Address: [address] [place] [address] Performed By: #### 3 4528-0, 85724-4 ####[facility] LABORATORYCLIA [id number] [address] [place] Basic metabolic 2000 panelon 06-14-2021 Anion gap [Moles/Vol] 8 mmol/L Low 9-18 [facility] Comment on above: Order Comment: Speci men Type: BLOOD SPECIMEN Performed By: #### 2 4321-2, 2776-05, ####[facility] LABORATORYCLIA [id number] [place], [place] [address] [place] [address] [place] [facility] Calcium [Mass/Vol] 8.9 mg/dL Normal 8.5-10.2 [facility] Comment on above: Order Comment: Speci men Type: BLOOD SPECIMEN Performed By: #### 2 4321-2, 2776-05, ####[facility] LABORATORYCLIA [id number] [address] [place] Chloride [Moles/Vol] 121 mmol/L High 97-105 [facility] Comment on above: Order Comment: Speci men Type: BLOOD SPECIMEN Performed By: #### 2 4321-2, 2776-05, ####[facility] LABORATORYCLIA [id number] [address] [place] CO2 [Moles/Vol] 30 mmol/L Normal 22-30 [facility] Comment on above: Order Comment: Speci men Type: BLOOD SPECIMEN Performed By: #### 2 4321-2, 2776-05, ####[facility]ORATORYCLIA [id number] [address] [place] Creatinine [Mass/Vol] 0.78 mg/dL Normal 0.73-1.22 [facility] Comment on above: Order Comment: Speci men Type: BLOOD SPECIMEN Performed By: #### 2 4321-2, 2776-05, ####[facility] LABORATORYCLIA [id number] [place] [address] [place] GFR/1.73 sq M.predicted MDRD (S/P/Bld) [Vol rate/Area] mL/min/{1.73_m2} Normal [facility] Comment on above: Order Comment: Speci men Type: BLOOD SPECIMEN Result Comment: >60e GFR (Estimated GFR) Units of measure: mL/min/1.73 meters squaredeGFR is derived from the reexpressed MDRD Study equation using the following parameters: serum creatinine, age, gender and race. The creatinine assay has been calibrated to be traceable to IDPA. An eGFR <60 mL/min/1.73m2 for >3 months is consistent with chronic kidney disease. Refer to KDOQI guidelines for clinical interpretation. In patients with unstable renal function, e.g. those with acute kidney injury, the eGFR may not accurately reflect actual GFR. Performed By: #### 2 4321-2, 2776-05, ####[facility] LABORATORYCLIA [id number] [place] [address] [place] Glucose [Mass/Vol] 132 mg/dL High 74-99 [facility] Comment on above: Order Comment: Speci men Type: BLOOD SPECIMEN Result Comment: The [place] Diabetes Association (ADA) provides guidance for cutoff values for fasting glucose and random glucose. The ADA defines fasting as no caloric intake for at least 8 hours. Fasting plasma glucose results between 100 to 125 mg/dL indicate increased risk for diabetes (prediabetes).Fasting plasma glucose results greater than or equal to 126 mg/dL meet the criteria for diagnosis of diabetes. In the absence of unequivocal hyperglycemia, results should be confirmed by repeat testing. In a patient with classic symptoms of hyperglycemia or hyperglycemic crisis, random plasma glucose results greater than or equal to 200 mg/dL meet the criteria for diagnosis of diabetes.Reference: Standards of Medical Care in Diabetes 2016, [place] [employer]. Diabetes Care. 2016.39(Suppl 1). Performed By: #### 2 4321-2, 2776-05, ####[facility] LABORATORYCLIA [id number] [place] [address] [place] Potassium [Moles/Vol] 3.7 mmol/L Normal 3.7-5.1 [facility] Comment on above: Order Comment: Speci men Type: BLOOD SPECIMEN Performed By: #### 2 4321-2, 2776-05, ####[facility] LABORATORYCLIA [id number] [place] [address] [place] Sodium [Moles/Vol] 159 mmol/L High 136-144 [facility] Comment on above: Order Comment: Speci men Type: BLOOD SPECIMEN Performed By: #### 2 4321-2, 2776-, ####[facility] LABORATORYCLIA [id number] [address] Urea nitrogen [Mass/Vol] 35 mg/dL High 9-24 [facility] Comment on above: Order Comment: Speci men Type: BLOOD SPECIMEN Performed By: #### 2 4321-2, 2776-, ####[facility] LABORATORYCLIA [id number] [address] CASE MANAGEMon 06-14-2021 CASE MANAGEM Normal [facility] CBC panel Auto (Bld)on 06-14 Erythrocyte distribution width (RBC) [Ratio] 16.2 % High 11.5-15.0 [facility] Comment on above: Order Comment: Speci men Type: BLOOD SPECIMEN Performed By: #### 5 8410-2 ####[facility] LABORATORYCLIA [id number] [address] Hematocrit (Bld) [Volume fraction] 35.2 % Low 39.0-51.0 [facility] Comment on above: Order Comment: Speci men Type: BLOOD SPECIMEN Performed By: #### 5 8410-2 ####[facility]ORATORYCLIA [id number] [address] Hemoglobin (Bld) [Mass/Vol] 10.1 g/dL Low 13.0-17.0 [facility] Comment on above: Order Comment: Speci men Type: BLOOD SPECIMEN Performed By: #### 5 8410-2 ####[facility] LABORATORYCLIA [id number] [address] MCH (RBC) [Entitic mass] 27.2 pg Normal 26.0-34.0 [facility] Comment on above: Order Comment: Speci men Type: BLOOD SPECIMEN Performed By: #### 5 8410-2 ####[facility] LABORATORYCLIA [id number] [address] MCHC (RBC) [Mass/Vol] 28.7 g/dL Low 30.5-36.0 [facility] Comment on above: Order Comment: Speci men Type: BLOOD SPECIMEN Performed By: #### 5 8410-2 ####[facility]ORATORYCLIA [id number] [address] MCV (RBC) [Entitic vol] 94.6 fL Normal 80.0-100.0 [facility] Comment on above: Order Comment: Speci men Type: BLOOD SPECIMEN Performed By: #### 5 8410-2 ####[facility] LABORATORYCLIA [id number] [address] Nucleated RBC (Bld) [#/Vol] 10*3/uL Normal <0.01 [facility] Comment on above: Order Comment: Speci men Type: BLOOD SPECIMEN Performed By: #### 5 8410-2 ####[facility] LABORATORYCLIA [id number] [address] Platelet mean volume (Bld) [Entitic vol] 11.0 fL Normal 9.0-12.7 [facility] Comment on above: Order Comment: Speci men Type: BLOOD SPECIMEN Performed By: #### 5 8410-2 ####[facility]ORATORYCLIA [id number] [address] Platelets (Bld) [#/Vol] 287 10*3/uL Normal 150-400 [facility] Comment on above: Order Comment: Speci men Type: BLOOD SPECIMEN Performed By: #### 5 8410-2 ####[facility] LABORATORYCLIA [id number] [address] RBC (Bld) [#/Vol] 3.72 10*6/uL Low 4.20-6.00 [facility] Comment on above: Order Comment: Speci men Type: BLOOD SPECIMEN Performed By: #### 5 8410-2 ####[facility] LABORATORYCLIA [id number] [place], [place] [address] [place] [address] WBC (Bld) [#/Vol] 12.23 10*3/uL High 3.70-11.00 [facility] Comment on above: Order Comment: Speci men Type: BLOOD SPECIMEN Performed By: #### 5 8410-2 ####[facility] LABORATORYCLIA [id number] [address] Comprehensive metabolic 2000 panelon 06-14-2021 Albumin [Mass/Vol] 3.1 g/dL Low 3.9-4.9 [facility] Comment on above: Order Comment: Speci men Type: BLOOD SPECIMEN Performed By: #### 2 4323-8, HSTNT, 2776-05, ####[facility] LABORATORYCLIA [id number] [address] ALP [Catalytic activity/Vol] 72 U/L Normal 38-113 [facility] Comment on above: Order Comment: Speci men Type: BLOOD SPECIMEN Performed By: #### 2 4323-8, HSTNT, 2776-05, ####[facility]ORATORYCLIA [id number] [address] ALT With P-5'-P [Catalytic activity/Vol] 57 U/L High 10-54 [facility] Comment on above: Order Comment: Speci men Type: BLOOD SPECIMEN Performed By: #### 2 4323-8, HSTNT, 2776-05, ####[facility]ORATORYCLIA [id number] [place], [place] [address] [place] [address] Anion gap [Moles/Vol] 9 mmol/L Normal 9-18 [facility] Comment on above: Order Comment: Speci men Type: BLOOD SPECIMEN Performed By: #### 2 4323-8, HSTNT, 2776-05, ####[facility]ORATORYCLIA [id number] [place], [place] [address] [place] [address] AST With P-5'-P [Catalytic activity/Vol] 33 U/L Normal 14-40 [facility] Comment on above: Order Comment: Speci men Type: BLOOD SPECIMEN Performed By: #### 2 4323-8, HSTNT, 2776-05, ####[facility] LABORATORYCLIA [id number] [address] STATES [place] Bilirubin [Mass/Vol] 0.5 mg/dL Normal 0.2-1.3 [facility] Comment on above: Order Comment: Speci men Type: BLOOD SPECIMEN Performed By: #### 2 4323-8, HSTNT, 2776-05, ####[facility]ORATORYCLIA [id number] [address] Calcium [Mass/Vol] 8.8 mg/dL Normal 8.5-10.2 [facility] Comment on above: Order Comment: Speci men Type: BLOOD SPECIMEN Performed By: #### 2 4323-8, HSTNT, 2776-05, ####[facility]ATORYCLIA [id number] [address] [place] Chloride [Moles/Vol] 124 mmol/L High 97-105 [facility] Comment on above: Order Comment: Speci men Type: BLOOD SPECIMEN Performed By: #### 2 4323-8, HSTNT, 2776-05, ####[facility]ATORYCLIA [id number] [address] [place] CO2 [Moles/Vol] 29 mmol/L Normal 22-30 [facility] Comment on above: Order Comment: Speci men Type: BLOOD SPECIMEN Performed By: #### 2 4323-8, HSTNT, 2776-05, ####[facility]ATORYCLIA [id number] [address] [place] Creatinine [Mass/Vol] 0.73 mg/dL Normal 0.73-1.22 [facility] Comment on above: Order Comment: Speci men Type: BLOOD SPECIMEN Performed By: #### 2 4323-8, HSTNT, 2776-, ####[facility]ORATORYCLIA [id number] [address] [place] GFR/1.73 sq M.predicted MDRD (S/P/Bld) [Vol rate/Area] mL/min/{1.73_m2} Normal [facility] Comment on above: Order Comment: Speci men Type: BLOOD SPECIMEN Result Comment: >60e GFR (Estimated GFR) Units of measure: mL/min/1.73 meters squaredeGFR is derived from the reexpressed MDRD Study equation using the following parameters: serum creatinine, age, gender and race. The creatinine assay has been calibrated to be traceable to IDMS. An eGFR <60 mL/min/1.73m2 for >3 months is consistent with chronic kidney disease. Refer to KDOQI guidelines for clinical interpretation. In patients with unstable renal function, e.g. those with acute kidney injury, the eGFR may not accurately reflect actual GFR. Performed By: #### 2 4323-8, HSTNT, 2777-, ####[facility]ORATORYCLIA [id number] [address] [place] Glucose [Mass/Vol] 137 mg/dL High 74-99 [facility] Comment on above: Order Comment: [facility] Type: BLOOD SPECIMEN Result Comment: The [place] Diabetes Association (ADA) provides guidance for cutoff values for fasting glucose and random glucose. The ADA defines fasting as no caloric intake for at least 8 hours. Fasting plasma glucose results between 100 to 125 mg/dL indicate increased risk for diabetes (prediabetes).Fasting plasma glucose results greater than or equal to 126 mg/dL meet the criteria for diagnosis of diabetes. In the absence of unequivocal hyperglycemia, results should be confirmed by repeat testing. In a patient with classic symptoms of hyperglycemia or hyperglycemic crisis, random plasma glucose results greater than or equal to 200 mg/dL meet the criteria for diagnosis of diabetes.Reference: Standards of Medical Care in Diabetes 2016, [place] [employer]. Diabetes Care. 2016.39(Suppl 1). Performed By: #### 2 4323-8, HSTNT, 2776-05, ####[facility]ORATORYCLIA [id number] [place], [place] [address] [place] [address] [place] [facility] Potassium [Moles/Vol] 3.6 mmol/L Low 3.7-5.1 [facility] Comment on above: Order Comment: Speci men Type: BLOOD SPECIMEN Performed By: #### 2 4323-8, HSTNT, 2776-05, ####[facility]ORATORYCLIA [id number] [place], [place] [address] [place] [address] [place] [facility] Protein [Mass/Vol] 5.9 g/dL Low 6.3-8.0 [facility] Comment on above: Order Comment: Speci men Type: BLOOD SPECIMEN Performed By: #### 2 4323-8, HSTNT, 2776-05, ####[facility]ORATORYCLIA [id number] [address] Sodium [Moles/Vol] 162 mmol/L High 136-144 [facility] Comment on above: Order Comment: Speci men Type: BLOOD SPECIMEN Performed By: #### 2 4323-8, HSTNT, 2776-05, ####[facility]ORATORYCLIA [id number] [place], [place] [address] [place] [address] [place] [facility] Urea nitrogen [Mass/Vol] 33 mg/dL High 9-24 [facility] Comment on above: Order Comment: Speci men Type: BLOOD SPECIMEN Performed By: #### 2 4323-8, HSTNT, 2776-05, ####[facility] LABORATORYCLIA [id number] [address] [place] HIGH SENSITIVITY TROPONIN To n 06-14-2021 HIGH SENSITIVITY TAMIKO 22 ng/L High <12 [facility] Comment on above: Order Comment: Speci men Type: BLOOD SPECIMEN Result Comment: When assessing risk for acute coronary syndromes: In patients undergoing blood draw greater than or equal to 2 hours from symptom onset, with history of very low to moderate risk and non-ischemic ECG, an initial hs-Troponin T less than 12 ng/L AND a 1 hour delta hs-Troponin T less than 3 ng/L should be considered very low risk for 30 day MACE. Performed By: #### H STNT ####[facility] LABORATORYCLIA [id number] [address] HIGH SENSITIVITY TAMIKO 22 ng/L High <12 [facility] Comment on above: Order Comment: Speci men Type: BLOOD SPECIMEN Result Comment: When assessing risk for acute coronary syndromes: In patients undergoing blood draw greater than or equal to 2 hours from symptom onset, with history of very low to moderate risk and non-ischemic ECG, an initial hs-Troponin T less than 12 ng/L AND a 1 hour delta hs-Troponin T less than 3 ng/L should be considered very low risk for 30 day MACE. Performed By: #### 2 4323-8, HSTNT, 2776-05, ####[facility] [facility]ATORYCLIA [id number] [address] Magnesium SerPl-mCncon 06-14 Magnesium [Mass/Vol] 2.9 mg/dL High 1.7-2.3 [facility] Comment on above: Order Comment: Speci men Type: BLOOD SPECIMEN Performed By: #### 2 4323-8, HSTNT, 2776-05, ####[facility]ATORYCLIA [id number] [address] Magnesium [Mass/Vol] 3.0 mg/dL High 1.7-2.3 [facility] Comment on above: Order Comment: Speci men Type: BLOOD SPECIMEN Performed By: #### 2 4321-2, 2776-05, ####[facility]ORATORYCLIA [id number] [address] NURSING PROGon 06-14-2021 NURSING PROG Normal [facility] NUTRITIONon 06-14-2021 NUTRITION Normal [facility] Phosphate SerPl-mCncon 06-14 Phosphate [Mass/Vol] 2.4 mg/dL Low 2.7-4.8 [facility] Comment on above: Order Comment: Speci men Type: BLOOD SPECIMEN Performed By: #### 2 4323-8, HSTNT, 2776-05, ####[facility]ATORYCLIA [id number] [address] [place] Phosphate [Mass/Vol] 3.2 mg/dL Normal 2.7-4.8 [facility] Comment on above: Order Comment: Speci men Type: BLOOD SPECIMEN Performed By: #### 2 4321-2, 2776-05, ####[facility]ORATORYCLIA [id number] [address] [place] THERAPY NTon 06-14-2021 THERAPY NT Normal [facility] THERAPY NT Normal [facility] THERAPY NT Normal [facility] US DVT LOWER BILon US DVT LOWER RAINER Normal [facility] ALLIED HEALTHon 06-13-2021 ALLIED HEALTH Normal [facility] Basic metabolic 2000 panelon 06-13-2021 Anion gap [Moles/Vol] 7 mmol/L Low 9-18 [facility] Comment on above: Order Comment: Speci men Type: BLOOD SPECIMEN Performed By: #### 2 4321-2, , 2776-05 ####[facility]ORYCLIA [id number] [address] [place] Calcium [Mass/Vol] 8.8 mg/dL Normal 8.5-10.2 [facility] Comment on above: Order Comment: Speci men Type: BLOOD SPECIMEN Performed By: #### 2 4321-2, , 2776-05 ####[facility]ATORYCLIA [id number] [address] [place] Chloride [Moles/Vol] 120 mmol/L High 97-105 [facility] Comment on above: Order Comment: Speci men Type: BLOOD SPECIMEN Performed By: #### 2 4321-2, , 2776-05 ####[facility]ATORYCLIA [id number] [place] [address] [place] CO2 [Moles/Vol] 28 mmol/L Normal 22-30 [facility] Comment on above: Order Comment: Speci men Type: BLOOD SPECIMEN Performed By: #### 2 4321-2, , 2776-05 ####[facility] LABORATORYCLIA [id number] [place] [address] [place] Creatinine [Mass/Vol] 0.78 mg/dL Normal 0.73-1.22 [facility] Comment on above: Order Comment: Speci men Type: BLOOD SPECIMEN Performed By: #### 2 4321-2, , 2776-05 ####[facility] LABORATORYCLIA [id number] [address] [place] GFR/1.73 sq M.predicted MDRD (S/P/Bld) [Vol rate/Area] mL/min/{1.73_m2} Normal [facility] Comment on above: Order Comment: Speci men Type: BLOOD SPECIMEN Result Comment: >60e GFR (Estimated GFR) Units of measure: mL/min/1.73 meters squaredeGFR is derived from the reexpressed MDRD Study equation using the following parameters: serum creatinine, age, gender and race. The creatinine assay has been calibrated to be traceable to IDMS. An eGFR <60 mL/min/1.73m2 for >3 months is consistent with chronic kidney disease. Refer to KDOQI guidelines for clinical interpretation. In patients with unstable renal function, e.g. those with acute kidney injury, the eGFR may not accurately reflect actual GFR. Performed By: #### 2 4321-2, , 2776-05 ####[facility] LABORATORYCLIA [id number] [place] [id number] [place] Glucose [Mass/Vol] 126 mg/dL High 74-99 [facility] Comment on above: Order Comment: Speci men Type: BLOOD SPECIMEN Result Comment: The [place] Diabetes Association (ADA) provides guidance for cutoff values for fasting glucose and random glucose. The ADA defines fasting as no caloric intake for at least 8 hours. Fasting plasma glucose results between 100 to 125 mg/dL indicate increased risk for diabetes (prediabetes).Fasting plasma glucose results greater than or equal to 126 mg/dL meet the criteria for diagnosis of diabetes. In the absence of unequivocal hyperglycemia, results should be confirmed by repeat testing. In a patient with classic symptoms of hyperglycemia or hyperglycemic crisis, random plasma glucose results greater than or equal to 200 mg/dL meet the criteria for diagnosis of diabetes.Reference: Standards of Medical Care in Diabetes 2016, [place] [employer] Association. Diabetes Care. 2016.39(Suppl 1). Performed By: #### 2 1-2, , 2776-05 ####[facility] LABORATORYCLIA [id number] [place] [address] [place] Potassium [Moles/Vol] 3.6 mmol/L Low 3.7-5.1 [facility] Comment on above: Order Comment: Speci men Type: BLOOD SPECIMEN Performed By: #### 2 4320-2, , 2776-05 ####[facility] LABORATORYCLIA [id number] [address] [place] Sodium [Moles/Vol] 155 mmol/L High 136-144 [facility] Comment on above: Order Comment: Speci men Type: BLOOD SPECIMEN Performed By: #### 2 4320-2, , 2776-05 ####[facility] LABORATORYCLIA [id number] [place] [address] [place] Urea nitrogen [Mass/Vol] 36 mg/dL High 9-24 [facility] Comment on above: Order Comment: Speci men Type: BLOOD SPECIMEN Performed By: #### 2 1-2, , 2776-05 ####[facility] LABORATORYCLIA [id number] [address] [place] Anion gap [Moles/Vol] 6 mmol/L Low 9-18 [facility] Comment on above: Order Comment: Speci men Type: BLOOD SPECIMEN Performed By: #### 2 1-2, 2776-05, ####[facility]ATORYCLIA [id number] [place] [address] [place] Calcium [Mass/Vol] 6.5 mg/dL Low 8.5-10.2 [facility] Comment on above: Order Comment: Speci men Type: BLOOD SPECIMEN Performed By: #### 2 4321-2, 7-, ####[facility] LABORATORYCLIA [id number] [address] [place] Chloride [Moles/Vol] 124 mmol/L High 97-105 [facility] Comment on above: Order Comment: Speci men Type: BLOOD SPECIMEN Performed By: #### 2 4321-2, 2776-05, ####[facility] LABORATORYCLIA [id number] [address] [place] CO2 [Moles/Vol] 24 mmol/L Normal 22-30 [facility] Comment on above: Order Comment: Speci men Type: BLOOD SPECIMEN Performed By: #### 2 4321-2, 2776-05, ####[facility] LABORATORYCLIA [id number] [address] [place] Creatinine [Mass/Vol] 0.61 mg/dL Low 0.73-1.22 [facility] Comment on above: Order Comment: Speci men Type: BLOOD SPECIMEN Performed By: #### 2 4321-2, 2776-05, ####[facility] LABORATORYCLIA [id number] [address] [place] GFR/1.73 sq M.predicted MDRD (S/P/Bld) [Vol rate/Area] mL/min/{1.73_m2} Normal [facility] Comment on above: Order Comment: Speci men Type: BLOOD SPECIMEN Result Comment: >60e GFR (Estimated GFR) Units of measure: mL/min/1.73 meters squaredeGFR is derived from the reexpressed MDRD Study equation using the following parameters: serum creatinine, age, gender and race. The creatinine assay has been calibrated to be traceable to IDMS. An eGFR <60 mL/min/1.73m2 for >3 months is consistent with chronic kidney disease. Refer to KDOQI guidelines for clinical interpretation. In patients with unstable renal function, e.g. those with acute kidney injury, the eGFR may not accurately reflect actual GFR. Performed By: #### 2 4321-2, 2776-05, ####[facility] LABORATORYCLIA [id number] [place] [address] [place] Glucose [Mass/Vol] 100 mg/dL High 74-99 [facility] Comment on above: Order Comment: Speci men Type: BLOOD SPECIMEN Result Comment: The [place] Diabetes Association (ADA) provides guidance for cutoff values for fasting glucose and random glucose. The ADA defines fasting as no caloric intake for at least 8 hours. Fasting plasma glucose results between 100 to 125 mg/dL indicate increased risk for diabetes (prediabetes).Fasting plasma glucose results greater than or equal to 126 mg/dL meet the criteria for diagnosis of diabetes. In the absence of unequivocal hyperglycemia, results should be confirmed by repeat testing. In a patient with classic symptoms of hyperglycemia or hyperglycemic crisis, random plasma glucose results greater than or equal to 200 mg/dL meet the criteria for diagnosis of diabetes.Reference: Standards of Medical Care in Diabetes 2016, [place] [employer]. Diabetes Care. 2016.39(Suppl 1). Performed By: #### 2 1-2, 2776-05, ####[facility] [id number] [place] [address] [place] Potassium [Moles/Vol] 2.7 mmol/L Low 3.7-5.1 [facility] Comment on above: Order Comment: Speci men Type: BLOOD SPECIMEN Performed By: #### 2 1-2, 2776-05, ####[facility] LABORATORYCLIA [id number] [place] [address] [place] Sodium [Moles/Vol] 154 mmol/L High 136-144 [facility] Comment on above: Order Comment: Speci men Type: BLOOD SPECIMEN Performed By: #### 2 1-2, 2776-05, ####[facility] LABORATORYCLIA [id number] [address] STATES [facility] Urea nitrogen [Mass/Vol] 29 mg/dL High 9-24 [facility] Comment on above: Order Comment: Speci men Type: BLOOD SPECIMEN Performed By: #### 2 4321-2, 2777-1, ####[facility] LABORATORYCLIA [id number] [address] CASE MANAGEMon 06-13-2021 CASE MANAGEM Normal [facility] CBC panel Auto (Bld)on 06-13 Erythrocyte distribution width (RBC) [Ratio] 15.9 % High 11.5-15.0 [facility] Comment on above: Order Comment: Speci men Type: BLOOD SPECIMEN Performed By: #### 5 8410-2 ####[facility] LABORATORYCLIA [id number] [address] Hematocrit (Bld) [Volume fraction] 34.3 % Low 39.0-51.0 [facility] Comment on above: Order Comment: Speci men Type: BLOOD SPECIMEN Performed By: #### 5 8410-2 ####[facility] LABORATORYCLIA [id number] [address] Hemoglobin (Bld) [Mass/Vol] 9.9 g/dL Low 13.0-17.0 [facility] Comment on above: Order Comment: Speci men Type: BLOOD SPECIMEN Performed By: #### 5 8410-2 ####[facility] LABORATORYCLIA [id number] [address] MCH (RBC) [Entitic mass] 27.3 pg Normal 26.0-34.0 [facility] Comment on above: Order Comment: Speci men Type: BLOOD SPECIMEN Performed By: #### 5 8410-2 ####[facility] LABORATORYCLIA [id number] [address] [place] MCHC (RBC) [Mass/Vol] 28.9 g/dL Low 30.5-36.0 [facility] Comment on above: Order Comment: Speci men Type: BLOOD SPECIMEN Performed By: #### 5 8410-2 ####[facility] LABORATORYCLIA [id number] [address] MCV (RBC) [Entitic vol] 94.5 fL Normal 80.0-100.0 [facility] Comment on above: Order Comment: Speci men Type: BLOOD SPECIMEN Performed By: #### 5 8410-2 ####[facility] LABORATORYCLIA [id number] [address] Nucleated RBC (Bld) [#/Vol] 10*3/uL Normal <0.01 [facility] Comment on above: Order Comment: Speci men Type: BLOOD SPECIMEN Performed By: #### 5 8410-2 ####[facility] LABORATORYCLIA [id number] [address] Platelet mean volume (Bld) [Entitic vol] 11.3 fL Normal 9.0-12.7 [facility] Comment on above: Order Comment: Speci men Type: BLOOD SPECIMEN Performed By: #### 5 8410-2 ####[facility]ORATORYCLIA [id number] [address] Platelets (Bld) [#/Vol] 269 10*3/uL Normal 150-400 [facility] Comment on above: Order Comment: Speci men Type: BLOOD SPECIMEN Performed By: #### 5 8410-2 ####[facility] LABORATORYCLIA [id number] [address] RBC (Bld) [#/Vol] 3.63 10*6/uL Low 4.20-6.00 [facility] Comment on above: Order Comment: Speci men Type: BLOOD SPECIMEN Performed By: #### 5 8410-2 ####[facility]ORATORYCLIA [id number] [address] WBC (Bld) [#/Vol] 12.77 10*3/uL High 3.70-11.00 [facility] Comment on above: Order Comment: Speci men Type: BLOOD SPECIMEN Performed By: #### 5 8410-2 ####[facility] LABORATORYCLIA [id number] [address] Gas and Carbon monoxide pane l (BldV)on 06-13-2021 Base excess Calc (BldV) [Moles/Vol] 5.7 mmol/L High 0-2 [facility] Comment on above: Order Comment: Speci men Type: VENOUS BLOOD SPECIMEN Performed By: #### 2 4344-4 ####[facility] LABORATORYCLIA [id number] [address] Body temperature 99.5 [degF] Normal [facility] Comment on above: Order Comment: Speci men Type: VENOUS BLOOD SPECIMEN Performed By: #### 2 4344-4 ####[facility] LABORATORYCLIA [id number] [address] CALCIUM IONIZED, PH CORRECTED 1.24 mmol/L Normal 1.08-1.30 [facility] Comment on above: Order Comment: Speci men Type: VENOUS BLOOD SPECIMEN Performed By: #### 2 4344-4 ####[facility]ORATORYCLIA [id number] [address] Calcium.ionized (BldV) [Mass/Vol] 1.23 mmol/L Normal 1.08-1.30 [facility] Comment on above: Order Comment: Speci men Type: VENOUS BLOOD SPECIMEN Performed By: #### 2 4344-4 ####[facility]ORATORYCLIA [id number] [address] Carboxyhemoglobin (BldV) [Mass fraction] 1.2 % Normal 0.0-2.0 [facility] Comment on above: Order Comment: Speci men Type: VENOUS BLOOD SPECIMEN Result Comment: Carb oxyhemoglobin Reference Range for Smokers: 2.0-8.0% Performed By: #### 2 4344-4 ####[facility] LABORATORYCLIA [id number] [place], [place] [address] [place] [address] CO2 (BldV) [Partial pressure] 48 mm[Hg] Normal 42-55 [facility] Comment on above: Order Comment: Speci men Type: VENOUS BLOOD SPECIMEN Performed By: #### 2 4344-4 ####[facility]ORYCLIA [id number] [place], [place] [address] [place] [address] CO2 [Moles/Vol] 28.2 mmol/L Normal 25-29 [facility] Comment on above: Order Comment: Speci men Type: VENOUS BLOOD SPECIMEN Performed By: #### 2 4344-4 ####[facility]ATORYCLIA [id number] [address] CO2 adjusted to patient's actual temperature (BldV) [Partial pressure] 49 mmHg Normal 42-55 [facility] Comment on above: Order Comment: Speci men Type: VENOUS BLOOD SPECIMEN Performed By: #### 2 4344-4 ####[facility]ORYCLIA [id number] [address] Glucose [Mass/Vol] 131 mg/dL High 60-105 [facility] Comment on above: Order Comment: Speci men Type: VENOUS BLOOD SPECIMEN Performed By: #### 2 4344-4 ####[facility]ORYCLIA [id number] [address] [place] HCO3 (Bld) [Moles/Vol] 30.6 mmol/L High 24-28 [facility] Comment on above: Order Comment: Speci men Type: VENOUS BLOOD SPECIMEN Performed By: #### 2 4344-4 ####[facility]ORYCLIA [id number] [address] Hematocrit (Bld) [Volume fraction] 32.8 % Low 39.0-51.0 [facility] Comment on above: Order Comment: Speci men Type: VENOUS BLOOD SPECIMEN Performed By: #### 2 4344-4 ####[facility]ATORYCLIA [id number] [place] [address] [place] Hemoglobin (Bld) [Mass/Vol] 10.6 g/dL Low 13.0-17.0 [facility] Comment on above: Order Comment: Speci men Type: VENOUS BLOOD SPECIMEN Performed By: #### 2 4344-4 ####[facility]ORYCLIA [id number] [address] [place] LITERS 6 Liters/min Normal [facility] Comment on above: Order Comment: Speci men Type: VENOUS BLOOD SPECIMEN Performed By: #### 2 4344-4 ####[facility]ORYCLIA [id number] [address] Methemoglobin (Bld) [Mass fraction] 1.0 % Normal 0.0-1.5 [facility] Comment on above: Order Comment: Speci men Type: VENOUS BLOOD SPECIMEN Performed By: #### 2 4344-4 ####[facility]ORYCLIA [id number] [address] O2 THERAPY NC = Nasal Cannula Normal [facility] Comment on above: Order Comment: Speci men Type: VENOUS BLOOD SPECIMEN Performed By: #### 2 4344-4 ####[facility]ORYCLIA [id number] [address] [place] Oxygen (BldV) [Partial pressure] 42 mm[Hg] Normal 35-45 [facility] Comment on above: Order Comment: Speci men Type: VENOUS BLOOD SPECIMEN Performed By: #### 2 4344-4 ####[facility]ORYCLIA [id number] [address] [place] Oxygen adjusted to patient's actual temperature (BldV) [Partial pressure] 43.8 mmHg Normal 35-45 [facility] Comment on above: Order Comment: Speci men Type: VENOUS BLOOD SPECIMEN Performed By: #### 2 4344-4 ####[facility]ORYCLIA [id number] [address] [place] Oxygen saturation in Blood 76.7 % Normal 60-85 [facility] Comment on above: Order Comment: Speci men Type: VENOUS BLOOD SPECIMEN Performed By: #### 2 4344-4 ####[facility]ORYCLIA [id number] [address] Oxyhemoglobin (BldV) [Mass fraction] 75 % Normal 60-85 [facility] Comment on above: Order Comment: Speci men Type: VENOUS BLOOD SPECIMEN Performed By: #### 2 4344-4 ####[facility]ORYCLIA [id number] [address] pH (BldV) 7.42 [pH] Normal 7.32-7.42 [facility] Comment on above: Order Comment: Speci men Type: VENOUS BLOOD SPECIMEN Performed By: #### 2 4344-4 ####[facility]ATORYCLIA [id number] [address] pH adjusted to patient's actual temperature (BldV) 7.41 Normal 7.32-7.42 [facility] Comment on above: Order Comment: Speci men Type: VENOUS BLOOD SPECIMEN Performed By: #### 2 4344-4 ####[facility]ORATORYCLIA [id number] [address] [place] [facility] Potassium [Moles/Vol] 3.5 mmol/L Normal 3.5-5.0 [facility] Comment on above: Order Comment: Speci men Type: VENOUS BLOOD SPECIMEN Performed By: #### 2 4344-4 ####[facility]ORYCLIA [id number] [address] Sodium [Moles/Vol] 157 mmol/L High 136-144 [facility] Comment on above: Order Comment: Speci men Type: VENOUS BLOOD SPECIMEN Performed By: #### 2 4344-4 ####[facility]ORYCLIA [id number] [address] [place] Magnesium SerPl-mCncon 06-13 Magnesium [Mass/Vol] 3.0 mg/dL High 1.7-2.3 [facility] Comment on above: Order Comment: Speci men Type: BLOOD SPECIMEN Performed By: #### 2 4321-2, 32582-9, 2776-05 ####[facility]ORYCLIA [id number] [place], [place] [address] [place] [address] STATES [facility] Magnesium [Mass/Vol] 2.2 mg/dL Normal 1.7-2.3 [facility] Comment on above: Order Comment: Speci men Type: BLOOD SPECIMEN Performed By: #### 2 4321-2, 2776-05, ####[facility]ATORYCLIA [id number] [place], [place] [address] [place] [address] [place] Phosphate SerPl-mCncon 06-13 Phosphate [Mass/Vol] 2.2 mg/dL Low 2.7-4.8 [facility] Comment on above: Order Comment: Speci men Type: BLOOD SPECIMEN Performed By: #### 2 4321-2, , 2776-05 ####[facility]ATORYCLIA [id number] [place], [place] [address] [place] [address] [place] [facility] Phosphate [Mass/Vol] 1.8 mg/dL Low 2.7-4.8 [facility] Comment on above: Order Comment: Speci men Type: BLOOD SPECIMEN Performed By: #### 2 4321-2, 2776-05, ####[facility]ORYCLIA [id number] [place], [place] [address] [place] [address] [place] XR CHEST 1V FRONTALon 2021 XR CHEST 1V FRONTAL Normal [facility] ALLIED HEALTHon 06-12-2021 ALLIED HEALTH Normal [facility] BRIEF OP NOTon 06-12-2021 BRIEF OP NOT Normal [facility] Bacteria Fld Culton 06-12-19 22 Bacteria identified Cx Nom (Body fld) CULTURE, BODY FLD: No growth 5 days GRAM STAIN: No organisms seen Moderate Polymorphonuclear leukocytes Normal [facility] Comment on above: Performed By: #### 6 11-4 ####[facility]ORYCLIA [id number] [address] [place] Basic metabolic 2000 panelon 06-12-2021 Anion gap [Moles/Vol] 6 mmol/L Low 9-18 [facility] Comment on above: Order Comment: Speci men Type: BLOOD SPECIMEN Performed By: #### 2 777-1, 23510-7, ####[facility]ORYCLIA [id number] [place], [place] [address] [place] [address] [place] [facility] Calcium [Mass/Vol] 8.7 mg/dL Normal 8.5-10.2 [facility] Comment on above: Order Comment: Speci men Type: BLOOD SPECIMEN Performed By: #### 2 777-1, 35366-3, ####[facility]ORYCLIA [id number] [address] Chloride [Moles/Vol] 118 mmol/L High 97-105 [facility] Comment on above: Order Comment: Speci men Type: BLOOD SPECIMEN Performed By: #### 2 777-1, , ####[facility]ORYCLIA [id number] [place], [place] [address] [place] [address] [place] CO2 [Moles/Vol] 28 mmol/L Normal 22-30 [facility] Comment on above: Order Comment: Speci men Type: BLOOD SPECIMEN Performed By: #### 2 777-1, 73573-4, ####[facility]ORYCLIA [id number] [address] [place] Creatinine [Mass/Vol] 0.77 mg/dL Normal 0.73-1.22 [facility] Comment on above: Order Comment: Speci men Type: BLOOD SPECIMEN Performed By: #### 2 777-1, , ####[facility]ORYCLIA [id number] [address] [place] GFR/1.73 sq M.predicted MDRD (S/P/Bld) [Vol rate/Area] mL/min/{1.73_m2} Normal [facility] Comment on above: Order Comment: Speci men Type: BLOOD SPECIMEN Result Comment: >60e GFR (Estimated GFR) Units of measure: mL/min/1.73 meters squaredeGFR is derived from the reexpressed MDRD Study equation using the following parameters: serum creatinine, age, gender and race. The creatinine assay has been calibrated to be traceable to IDMS. An eGFR <60 mL/min/1.73m2 for >3 months is consistent with chronic kidney disease. Refer to [place]DOQI guidelines for clinical interpretation. In patients with unstable renal function, e.g. those with acute kidney injury, the eGFR may not accurately reflect actual GFR. Performed By: #### 2 777-1, 74411-6, ####[facility] [id number] [place] [address] [place] Glucose [Mass/Vol] 116 mg/dL High 74-99 [facility] Comment on above: Order Comment: [facility] Type: BLOOD SPECIMEN Result Comment: The [place] [employer] (ADA) provides guidance for cutoff values for fasting glucose and random glucose. The ADA defines fasting as no caloric intake for at least 8 hours. Fasting plasma glucose results between 100 to 125 mg/dL indicate increased risk for diabetes (prediabetes).Fasting plasma glucose results greater than or equal to 126 mg/dL meet the criteria for diagnosis of diabetes. In the absence of unequivocal hyperglycemia, results should be confirmed by repeat testing. In a patient with classic symptoms of hyperglycemia or hyperglycemic crisis, random plasma glucose results greater than or equal to 200 mg/dL meet the criteria for diagnosis of diabetes.Reference: Standards of Medical Care in Diabetes 2016, [place] [employer]. Diabetes Care. 2016.39(Suppl 1). Performed By: #### 2 777-1, 42704-6, ####[facility]ORATORYCLIA [id number] [place] [address] [place] Potassium [Moles/Vol] 4.0 mmol/L Normal 3.7-5.1 [facility] Comment on above: Order Comment: [facility] Type: BLOOD SPECIMEN Performed By: #### 2 777-1, 06336-2, ####[facility]ATORYCLIA [id number] [address] Sodium [Moles/Vol] 152 mmol/L High 136-144 [facility] Comment on above: Order Comment: Speci men Type: BLOOD SPECIMEN Performed By: #### 2 777-1, 41132-6, ####[facility]ATORYCLIA [id number] [address] Urea nitrogen [Mass/Vol] 34 mg/dL High 9-24 [facility] Comment on above: Order Comment: Speci men Type: BLOOD SPECIMEN Performed By: #### 2 777-1, 98992-9, ####[facility]ATORYCLIA [id number] [address] CBC panel Auto (Bld)on 06-12 Erythrocyte distribution width (RBC) [Ratio] 16.1 % High 11.5-15.0 [facility] Comment on above: Order Comment: Speci men Type: BLOOD SPECIMEN Performed By: #### 5 8410-2 ####[facility]ATORYCLIA [id number] [address] Hematocrit (Bld) [Volume fraction] 32.8 % Low 39.0-51.0 [facility] Comment on above: Order Comment: Speci men Type: BLOOD SPECIMEN Performed By: #### 5 8410-2 ####[facility]ATORYCLIA [id number] [address] Hemoglobin (Bld) [Mass/Vol] 9.9 g/dL Low 13.0-17.0 [facility] Comment on above: Order Comment: Speci men Type: BLOOD SPECIMEN Performed By: #### 5 8410-2 ####[facility]ATORYCLIA [id number] [address] MCH (RBC) [Entitic mass] 28.4 pg Normal 26.0-34.0 [facility] Comment on above: Order Comment: Speci men Type: BLOOD SPECIMEN Performed By: #### 5 8410-2 ####[facility]ATORYCLIA [id number] [address] MCHC (RBC) [Mass/Vol] 30.2 g/dL Low 30.5-36.0 [facility] Comment on above: Order Comment: Speci men Type: BLOOD SPECIMEN Performed By: #### 5 8410-2 ####[facility]ATORYCLIA [id number] [address] MCV (RBC) [Entitic vol] 94.3 fL Normal 80.0-100.0 [facility] Comment on above: Order Comment: Speci men Type: BLOOD SPECIMEN Performed By: #### 5 8410-2 ####[facility]ATORYCLIA [id number] [address] Nucleated RBC (Bld) [#/Vol] 10*3/uL Normal <0.01 [facility] Comment on above: Order Comment: Speci men Type: BLOOD SPECIMEN Performed By: #### 5 8410-2 ####[facility]ATORYCLIA [id number] [address] Platelet mean volume (Bld) [Entitic vol] 11.2 fL Normal 9.0-12.7 [facility] Comment on above: Order Comment: Speci men Type: BLOOD SPECIMEN Performed By: #### 5 8410-2 ####[facility]ATORYCLIA [id number] [address] Platelets (Bld) [#/Vol] 218 10*3/uL Normal 150-400 [facility] Comment on above: Order Comment: Speci men Type: BLOOD SPECIMEN Performed By: #### 5 8410-2 ####[facility]ATORYCLIA [id number] [address] RBC (Bld) [#/Vol] 3.48 10*6/uL Low 4.20-6.00 [facility] Comment on above: Order Comment: Speci men Type: BLOOD SPECIMEN Performed By: #### 5 8410-2 ####[facility]ORATORYCLIA [id number] [address] STATES [facility] WBC (Bld) [#/Vol] 13.33 10*3/uL High 3.70-11.00 [facility] Comment on above: Order Comment: Speci men Type: BLOOD SPECIMEN Performed By: #### 5 8410-2 ####[facility]ORATORYCLIA [id number] [address] CONSULT PROGon 06-12-2021 CONSULT PROG Normal [facility] CT DRN PLACE PERIT/RETROP FL BIon 06-12-[address] PERIT/RETROP FL BI Normal [facility] HISTORY PHYSICALon HISTORY PHYSICAL Normal [facility] Magnesium SerPl-mCncon 06-12 Magnesium [Mass/Vol] 2.7 mg/dL High 1.7-2.3 [facility] Comment on above: Order Comment: Speci men Type: BLOOD SPECIMEN Performed By: #### 2 777-1, 90779-0, 19531-1 ####[facility]ATORYCLIA [id number] [address] PT panel Coag (PPP)on 2021 INR Coag (PPP) [Relative time] 1.1 {INR} Normal 0.9-1.3 [facility] Comment on above: Order Comment: Speci men Type: BLOOD SPECIMEN Result Comment: Yris min K Antagonist (VKA) Therapeutic Range: INR 2 to 3 (Target INR of 2.5)Note: For patients treated with VKA drugs, such as warfarin, the [place] [employer] 2012 Guideline recommends a therapeutic INR range of 2 to 3 (target INR of 2.5). This recommendation includes high-risk patients with antiphospholipid syndrome with previous arterial or venous thromboembolism, current-generation mechanical or bioprosthetic aortic heart valve replacement.Note: Patients with mechanical aortic valve replacement and additional risk factors for thromboembolic events (atrial fibrillation, previous thromboembolism, LV dysfunction, hypercoagulable conditions) or an older generation mechanical AVR (i.e., ball in-Cage) or any mechanical MVR should have a INR therapeutic range of 2.5 to 3.5 (target INR of 3).Jeffy GH, et al. Chest 2012, 141:7S-47SNishimura RA, et al. [facility] 2017, 70: 252-289 Performed By: #### 3 4528-0 ####[facility]ORATORYCLIA [id number] [address] [place] PT Coag (PPP) [Time] 11.9 s Normal 9.7-13.0 [facility] Comment on above: Order Comment: Speci men Type: BLOOD SPECIMEN Performed By: #### 3 4528-0 ####[facility]ATORYCLIA [id number] [address] [place] Phosphate SerPl-mCncon 06-12 Phosphate [Mass/Vol] 2.2 mg/dL Low 2.7-4.8 [facility] Comment on above: Order Comment: Speci men Type: BLOOD SPECIMEN Performed By: #### 2 777-1, 58256-3, 04475-0 ####[facility]ATORYCLIA [id number] [address] [place] [facility] XR ABDOMEN 1V SUPINEon 06-12 XR ABDOMEN 1V SUPINE Normal [facility] ALLIED HEALTHon 06-11-2021 ALLIED HEALTH Normal [facility] Bacteria Bld Culton 06-11-19 22 Bacteria identified Cx Nom (Bld) CULTURE, BLOOD: No growth 5 days Normal [facility] Comment on above: Performed By: #### 6 00-7 ####[facility]ORATORYCLIA [id number] [address] [place] Bacteria identified Cx Nom (Bld) CULTURE, BLOOD: No growth 5 days Normal [facility] Comment on above: Performed By: #### 6 00-7 ####[facility]ATORYCLIA [id number] [address] [place] Bacteria Ur Culton 2 Bacteria identified Cx Nom (U) CULTURE, URINE: No growth (<1,000 CFU/ml) Normal [facility] Comment on above: Performed By: #### 6 30-4 ####[facility]ORYCLIA [id number] [address] [place] [facility] Basic metabolic 2000 panelon 06-11-2021 Anion gap [Moles/Vol] 9 mmol/L Normal 9-18 [facility] Comment on above: Order Comment: Speci men Type: BLOOD SPECIMEN Performed By: #### 1 9123-9, 2776-1, 84257-1 ####[facility]ORYCLIA [id number] [address] [place] Calcium [Mass/Vol] 8.5 mg/dL Normal 8.5-10.2 [facility] Comment on above: Order Comment: Speci men Type: BLOOD SPECIMEN Performed By: #### 1 9123-9, 2776-, 47439-1 ####[facility]ORYCLIA [id number] [address] [place] Chloride [Moles/Vol] 118 mmol/L High 97-105 [facility] Comment on above: Order Comment: Speci men Type: BLOOD SPECIMEN Performed By: #### 1 9123-9, 2776-, 39126-1 ####[facility]ORYCLIA [id number] [address] [place] CO2 [Moles/Vol] 27 mmol/L Normal 22-30 [facility] Comment on above: Order Comment: Speci men Type: BLOOD SPECIMEN Performed By: #### 1 9123-9, 2776-1, 77335-6 ####[facility]ORYCLIA [id number] [address] [place] Creatinine [Mass/Vol] 0.75 mg/dL Normal 0.73-1.22 [facility] Comment on above: Order Comment: Speci men Type: BLOOD SPECIMEN Performed By: #### 1 9123-9, 2776-, 42034-2 ####[facility]PITALIA [id number] [place] [address] [place] GFR/1.73 sq M.predicted MDRD (S/P/Bld) [Vol rate/Area] mL/min/{1.73_m2} Normal [facility] Comment on above: Order Comment: Speci men Type: BLOOD SPECIMEN Result Comment: >60e GFR (Estimated GFR) Units of measure: mL/min/1.73 meters squaredeGFR is derived from the reexpressed MDRD Study equation using the following parameters: serum creatinine, age, gender and race. The creatinine assay has been calibrated to be traceable to IDMS. An eGFR <60 mL/min/1.73m2 for >3 months is consistent with chronic kidney disease. Refer to KDOQI guidelines for clinical interpretation. In patients with unstable renal function, e.g. those with acute kidney injury, the eGFR may not accurately reflect actual GFR. Performed By: #### 1 9123-9, 2777-1, 76557-8 ####[facility]PITALIA [id number] [place] [id number] [place] Glucose [Mass/Vol] 142 mg/dL High 74-99 [facility] Comment on above: Order Comment: Speci men Type: BLOOD SPECIMEN Result Comment: The [place] [employer] (ADA) provides guidance for cutoff values for fasting glucose and random glucose. The ADA defines fasting as no caloric intake for at least 8 hours. Fasting plasma glucose results between 100 to 125 mg/dL indicate increased risk for diabetes (prediabetes).Fasting plasma glucose results greater than or equal to 126 mg/dL meet the criteria for diagnosis of diabetes. In the absence of unequivocal hyperglycemia, results should be confirmed by repeat testing. In a patient with classic symptoms of hyperglycemia or hyperglycemic crisis, random plasma glucose results greater than or equal to 200 mg/dL meet the criteria for diagnosis of diabetes.Reference: Standards of Medical Care in Diabetes 2016, [place] [employer]. Diabetes Care. 2016.39(Suppl 1). Performed By: #### 1 9123-9, 2777-1, 12719-8 ####[facility] LABORATORYIA [id number] [place] [address] [place] Potassium [Moles/Vol] 3.6 mmol/L Low 3.7-5.1 [facility] Comment on above: Order Comment: Speci men Type: BLOOD SPECIMEN Performed By: #### 1 9123-9, 277-, 05101-8 ####[facility]ORATORYCLIA [id number] [address] STATES [facility] Sodium [Moles/Vol] 154 mmol/L High 136-144 [facility] Comment on above: Order Comment: Speci men Type: BLOOD SPECIMEN Performed By: #### 1 9123-9, 2776-05, 11698-6 ####[facility]ATORYCLIA [id number] [address] Urea nitrogen [Mass/Vol] 31 mg/dL High 9-24 [facility] Comment on above: Order Comment: Speci men Type: BLOOD SPECIMEN Performed By: #### 1 9123-9, 2776-05, 60905-1 ####[facility]ATORYCLIA [id number] [address] [place] [facility] C diff Tox gens Stl Ql MEGAN+p robeon 06-11-2021 C. difficile toxin genes MEGAN+probe Ql (Stl) Negative Normal Negative for C. difficile toxin by PCR [facility] Comment on above: Order Comment: Speci men Type: STOOL SPECIMEN Performed By: #### 5 4067-4 ####[facility]ATORYCLIA [id number] [address] [place] [facility] CBC W Auto Differential pane l (Bld)on 06-11-2021 Basophils (Bld) [#/Vol] 0.03 10*3/uL Normal <0.11 [facility] Comment on above: Order Comment: Speci men Type: BLOOD SPECIMEN Performed By: #### 5 7021-8 ####[facility]ORATORYCLIA [id number] [address] Basophils/100 WBC (Bld) 0.2 % Normal [facility] Comment on above: Order Comment: Speci men Type: BLOOD SPECIMEN Performed By: #### 5 7021-8 ####[facility]ORYCLIA [id number] [address] Differential cell count method Nom (Bld) Auto Normal [facility] Comment on above: Order Comment: Speci men Type: BLOOD SPECIMEN Performed By: #### 5 7021-8 ####[facility]ATORYCLIA [id number] [address] Eosinophils (Bld) [#/Vol] 0.19 10*3/uL Normal <0.46 [facility] Comment on above: Order Comment: Speci men Type: BLOOD SPECIMEN Performed By: #### 5 7021-8 ####[facility]ATORYCLIA [id number] [address] Eosinophils/100 WBC (Bld) 1.5 % Normal [facility] Comment on above: Order Comment: Speci men Type: BLOOD SPECIMEN Performed By: #### 5 7021-8 ####[facility]ATORYCLIA [id number] [address] Erythrocyte distribution width (RBC) [Ratio] 16.3 % High 11.5-15.0 [facility] Comment on above: Order Comment: Speci men Type: BLOOD SPECIMEN Performed By: #### 5 7021-8 ####[facility]ATORYCLIA [id number] [address] Hematocrit (Bld) [Volume fraction] 32.1 % Low 39.0-51.0 [facility] Comment on above: Order Comment: Speci men Type: BLOOD SPECIMEN Performed By: #### 5 7021-8 ####[facility]ORYCLIA [id number] [address] Hemoglobin (Bld) [Mass/Vol] 9.3 g/dL Low 13.0-17.0 [facility] Comment on above: Order Comment: Speci men Type: BLOOD SPECIMEN Performed By: #### 5 7021-8 ####[facility]ORYCLIA [id number] [address] IMMATURE GRAN % 0.6 % Normal [facility] Comment on above: Order Comment: Speci men Type: BLOOD SPECIMEN Performed By: #### 5 7021-8 ####[facility]ATORYCLIA [id number] [address] IMMATURE GRAN ABS 0.08 k/uL Normal <0.10 [facility] Comment on above: Order Comment: Speci men Type: BLOOD SPECIMEN Performed By: #### 5 7021-8 ####[facility]ATORYCLIA [id number] [address] Lymphocytes (Bld) [#/Vol] 1.65 10*3/uL Normal 1.00-4.00 [facility] Comment on above: Order Comment: Speci men Type: BLOOD SPECIMEN Performed By: #### 5 7021-8 ####[facility]ATORYCLIA [id number] [address] Lymphocytes/100 WBC (Bld) 12.8 % Normal [facility] Comment on above: Order Comment: Speci men Type: BLOOD SPECIMEN Performed By: #### 5 7021-8 ####[facility]ATORYCLIA [id number] [address] MCH (RBC) [Entitic mass] 27.2 pg Normal 26.0-34.0 [facility] Comment on above: Order Comment: Speci men Type: BLOOD SPECIMEN Performed By: #### 5 7021-8 ####[facility]ATORYCLIA [id number] [address] MCHC (RBC) [Mass/Vol] 29.0 g/dL Low 30.5-36.0 [facility] Comment on above: Order Comment: Speci men Type: BLOOD SPECIMEN Performed By: #### 5 7021-8 ####[facility]ATORYCLIA [id number] [address] MCV (RBC) [Entitic vol] 93.9 fL Normal 80.0-100.0 [facility] Comment on above: Order Comment: Speci men Type: BLOOD SPECIMEN Performed By: #### 5 7021-8 ####[facility]ORYCLIA [id number] [address] Monocytes (Bld) [#/Vol] 0.68 10*3/uL Normal <0.87 [facility] Comment on above: Order Comment: Speci men Type: BLOOD SPECIMEN Performed By: #### 5 7021-8 ####[facility]ORYCLIA [id number] [address] Monocytes/100 WBC (Bld) 5.3 % Normal [facility] Comment on above: Order Comment: Speci men Type: BLOOD SPECIMEN Performed By: #### 5 7021-8 ####[facility]ORYCLIA [id number] [address] Neutrophils (Bld) [#/Vol] 10.22 10*3/uL High 1.45-7.50 [facility] Comment on above: Order Comment: Speci men Type: BLOOD SPECIMEN Performed By: #### 5 7021-8 ####[facility]ORYCLIA [id number] [address] Neutrophils/100 WBC (Bld) 79.6 % Normal [facility] Comment on above: Order Comment: Speci men Type: BLOOD SPECIMEN Performed By: #### 5 7021-8 ####[facility]ORYCLIA [id number] [address] Nucleated RBC (Bld) [#/Vol] 10*3/uL Normal <0.01 [facility] Comment on above: Order Comment: Speci men Type: BLOOD SPECIMEN Performed By: #### 5 7021-8 ####[facility]ORYCLIA [id number] [address] [place] Nucleated RBC/100 WBC (Bld) [Ratio] 0.0 /100 WBC Normal 0.0 [facility] Comment on above: Order Comment: Speci men Type: BLOOD SPECIMEN Performed By: #### 5 7021-8 ####[facility]ORYCLIA [id number] [address] Platelet mean volume (Bld) [Entitic vol] 11.1 fL Normal 9.0-12.7 [facility] Comment on above: Order Comment: Speci men Type: BLOOD SPECIMEN Performed By: #### 5 7021-8 ####[facility]ORYCLIA [id number] [address] Platelets (Bld) [#/Vol] 188 10*3/uL Normal 150-400 [facility] Comment on above: Order Comment: Speci men Type: BLOOD SPECIMEN Performed By: #### 5 7021-8 ####[facility]ORYCLIA [id number] [address] RBC (Bld) [#/Vol] 3.42 10*6/uL Low 4.20-6.00 [facility] Comment on above: Order Comment: Speci men Type: BLOOD SPECIMEN Performed By: #### 5 7021-8 ####[facility]ORYCLIA [id number] [address] WBC (Bld) [#/Vol] 12.85 10*3/uL High 3.70-11.00 [facility] Comment on above: Order Comment: Speci men Type: BLOOD SPECIMEN Performed By: #### 5 7021-8 ####[facility]ORYCLIA [id number] [address] CBC panel Auto (Bld)on 06-11 Erythrocyte distribution width (RBC) [Ratio] 16.2 % High 11.5-15.0 [facility] Comment on above: Order Comment: Speci men Type: BLOOD SPECIMEN Performed By: #### 5 8410-2 ####[facility]ATORYCLIA [id number] [address] Hematocrit (Bld) [Volume fraction] 34.5 % Low 39.0-51.0 [facility] Comment on above: Order Comment: Speci men Type: BLOOD SPECIMEN Performed By: #### 5 8410-2 ####[facility]ORYCLIA [id number] [address] Hemoglobin (Bld) [Mass/Vol] 10.3 g/dL Low 13.0-17.0 [facility] Comment on above: Order Comment: Speci men Type: BLOOD SPECIMEN Performed By: #### 5 8410-2 ####[facility]ORYCLIA [id number] [address] MCH (RBC) [Entitic mass] 28.1 pg Normal 26.0-34.0 [facility] Comment on above: Order Comment: Speci men Type: BLOOD SPECIMEN Performed By: #### 5 8410-2 ####[facility]ORYCLIA [id number] [address] MCHC (RBC) [Mass/Vol] 29.9 g/dL Low 30.5-36.0 [facility] Comment on above: Order Comment: Speci men Type: BLOOD SPECIMEN Performed By: #### 5 8410-2 ####[facility]ORYCLIA [id number] [address] MCV (RBC) [Entitic vol] 94.3 fL Normal 80.0-100.0 [facility] Comment on above: Order Comment: Speci men Type: BLOOD SPECIMEN Performed By: #### 5 8410-2 ####[facility]ORYCLIA [id number] [address] Nucleated RBC (Bld) [#/Vol] 10*3/uL Normal <0.01 [facility] Comment on above: Order Comment: Speci men Type: BLOOD SPECIMEN Performed By: #### 5 8410-2 ####[facility]ORYCLIA [id number] [address] Platelet mean volume (Bld) [Entitic vol] 10.9 fL Normal 9.0-12.7 [facility] Comment on above: Order Comment: Speci men Type: BLOOD SPECIMEN Performed By: #### 5 8410-2 ####[facility]ORYCLIA [id number] [address] [place] [facility] Platelets (Bld) [#/Vol] 210 10*3/uL Normal 150-400 [facility] Comment on above: Order Comment: Speci men Type: BLOOD SPECIMEN Performed By: #### 5 8410-2 ####[facility]ORYCLIA [id number] [address] RBC (Bld) [#/Vol] 3.66 10*6/uL Low 4.20-6.00 [facility] Comment on above: Order Comment: Speci men Type: BLOOD SPECIMEN Performed By: #### 5 8410-2 ####[facility]ORYCLIA [id number] [address] WBC (Bld) [#/Vol] 13.03 10*3/uL High 3.70-11.00 [facility] Comment on above: Order Comment: Speci men Type: BLOOD SPECIMEN Performed By: #### 5 8410-2 ####[facility]ORYCLIA [id number] [address] CONSULT PROGon 06-11-2021 CONSULT PROG Normal [facility] CONSULT PROG Normal [facility] CONSULT PROG Normal [facility] CT ABD/PEL W IVCONon 022 CT ABD/PEL W IVCON Invalid Interpretation Code [facility] Magnesium SerPl-mCncon 06-11 Magnesium [Mass/Vol] 2.7 mg/dL High 1.7-2.3 [facility] Comment on above: Order Comment: Speci men Type: BLOOD SPECIMEN Performed By: #### 1 9123-9, 2777-1, 36153-8 ####[facility]ORYCLIA [id number] [address] Phosphate SerPl-mCncon 06-11 Phosphate [Mass/Vol] 2.5 mg/dL Low 2.7-4.8 [facility] Comment on above: Order Comment: Speci men Type: BLOOD SPECIMEN Performed By: #### 1 9123-9, 2777-1, 49692-6 ####[facility]ORYCLIA [id number] [place] [address] [place] Basic metabolic 2000 panelon 06-10-2021 Anion gap [Moles/Vol] 7 mmol/L Low 9-18 [facility] Comment on above: Order Comment: Speci men Type: BLOOD SPECIMEN Performed By: #### 2 777-1, 41201-6, , HFP ####[facility]ORYCLIA [id number] [address] [place] [facility] Calcium [Mass/Vol] 8.5 mg/dL Normal 8.5-10.2 [facility] Comment on above: Order Comment: Speci men Type: BLOOD SPECIMEN Performed By: #### 2 777-1, 00205-6, , HFP ####[facility]ORYCLIA [id number] [address] [place] Chloride [Moles/Vol] 118 mmol/L High 97-105 [facility] Comment on above: Order Comment: Speci men Type: BLOOD SPECIMEN Performed By: #### 2 777-1, 53059-5, , HFP ####[facility]ORYCLIA [id number] [address] [place] CO2 [Moles/Vol] 26 mmol/L Normal 22-30 [facility] Comment on above: Order Comment: Speci men Type: BLOOD SPECIMEN Performed By: #### 2 777-1, 28669-1, , HFP ####[place] GENERAL LABORATORYCLIA [id number] [place] [address] [place] Creatinine [Mass/Vol] 0.70 mg/dL Low 0.73-1.22 [facility] Comment on above: Order Comment: Speci men Type: BLOOD SPECIMEN Performed By: #### 2 777-1, 30643-8, 37051-6, [facility] ####[facility]ITAL[facility] [id number] [place] [id number] [place] GFR/1.73 sq M.predicted MDRD (S/P/Bld) [Vol rate/Area] mL/min/{1.73_m2} Normal [facility] Comment on above: Order Comment: Speci men Type: BLOOD SPECIMEN Result Comment: >60e GFR (Estimated GFR) Units of measure: mL/min/1.73 meters squaredeGFR is derived from the reexpressed MDRD Study equation using the following parameters: serum creatinine, age, gender and race. The creatinine assay has been calibrated to be traceable to IDMS. An eGFR <60 mL/min/1.73m2 for >3 months is consistent with chronic kidney disease. Refer to KDOQI guidelines for clinical interpretation. In patients with unstable renal function, e.g. those with acute kidney injury, the eGFR may not accurately reflect actual GFR. Performed By: #### 2 777-1, 57243-0, 25643-0, [facility] ####[facility]ITAL[facility] [id number] [place] [id number] [place] Glucose [Mass/Vol] 135 mg/dL High 74-99 [facility] Comment on above: Order Comment: Speci [facility] Type: BLOOD SPECIMEN Result Comment: The [place] Diabetes Association (ADA) provides guidance for cutoff values for fasting glucose and random glucose. The ADA defines fasting as no caloric intake for at least 8 hours. Fasting plasma glucose results between 100 to 125 mg/dL indicate increased risk for diabetes (prediabetes).Fasting plasma glucose results greater than or equal to 126 mg/dL meet the criteria for diagnosis of diabetes. In the absence of unequivocal hyperglycemia, results should be confirmed by repeat testing. In a patient with classic symptoms of hyperglycemia or hyperglycemic crisis, random plasma glucose results greater than or equal to 200 mg/dL meet the criteria for diagnosis of diabetes.Reference: Standards of Medical Care in Diabetes 2016, [place] [employer] Association. Diabetes Care. 2016.39(Suppl 1). Performed By: #### 2 777-1, 00548-2, , HFP ####[facility] LABORATORYCLIA [id number] [place], [place] [address] [place] [address] OF [facility] Potassium [Moles/Vol] 3.9 mmol/L Normal 3.7-5.1 [facility] Comment on above: Order Comment: Speci men Type: BLOOD SPECIMEN Performed By: #### 2 777-1, 36693-3, , HFP ####[facility] LABORATORYCLIA [id number] [address] STATES [facility] Sodium [Moles/Vol] 151 mmol/L High 136-144 [facility] Comment on above: Order Comment: Speci men Type: BLOOD SPECIMEN Performed By: #### 2 777-1, 93009-9, , HFP ####[facility] [facility] LABORATORYCLIA [id number] [address] Urea nitrogen [Mass/Vol] 27 mg/dL High 9-24 [facility] Comment on above: Order Comment: Speci men Type: BLOOD SPECIMEN Performed By: #### 2 777-1, 65752-9, , HFP ####[facility] LABORATORYCLIA [id number] [address] CASE MANAGEMon 06-10-2021 CASE MANAGEM Normal [facility] CBC panel Auto (Bld)on 06-10 Erythrocyte distribution width (RBC) [Ratio] 16.2 % High 11.5-15.0 [facility] Comment on above: Order Comment: Speci men Type: BLOOD SPECIMEN Performed By: #### 5 8410-2 ####[facility] LABORATORYCLIA [id number] [address] Hematocrit (Bld) [Volume fraction] 34.8 % Low 39.0-51.0 [facility] Comment on above: Order Comment: Speci men Type: BLOOD SPECIMEN Performed By: #### 5 8410-2 ####[facility] LABORATORYCLIA [id number] [address] Hemoglobin (Bld) [Mass/Vol] 10.2 g/dL Low 13.0-17.0 [facility] Comment on above: Order Comment: Speci men Type: BLOOD SPECIMEN Performed By: #### 5 8410-2 ####[facility] LABORATORYCLIA [id number] [address] MCH (RBC) [Entitic mass] 27.1 pg Normal 26.0-34.0 [facility] Comment on above: Order Comment: Speci men Type: BLOOD SPECIMEN Performed By: #### 5 8410-2 ####[facility] LABORATORYCLIA [id number] [address] MCHC (RBC) [Mass/Vol] 29.3 g/dL Low 30.5-36.0 [facility] Comment on above: Order Comment: Speci men Type: BLOOD SPECIMEN Performed By: #### 5 8410-2 ####[facility] LABORATORYCLIA [id number] [address] MCV (RBC) [Entitic vol] 92.6 fL Normal 80.0-100.0 [facility] Comment on above: Order Comment: Speci men Type: BLOOD SPECIMEN Performed By: #### 5 8410-2 ####[facility] LABORATORYCLIA [id number] [address] Nucleated RBC (Bld) [#/Vol] 10*3/uL Normal <0.01 [facility] Comment on above: Order Comment: Speci men Type: BLOOD SPECIMEN Performed By: #### 5 8410-2 ####[facility] LABORATORYCLIA [id number] [address] Platelet mean volume (Bld) [Entitic vol] 10.4 fL Normal 9.0-12.7 [facility] Comment on above: Order Comment: Speci men Type: BLOOD SPECIMEN Performed By: #### 5 8410-2 ####[facility] LABORATORYCLIA [id number] [address] Platelets (Bld) [#/Vol] 206 10*3/uL Normal 150-400 [facility] Comment on above: Order Comment: Speci men Type: BLOOD SPECIMEN Performed By: #### 5 8410-2 ####[facility] LABORATORYCLIA [id number] [address] RBC (Bld) [#/Vol] 3.76 10*6/uL Low 4.20-6.00 [facility] Comment on above: Order Comment: Speci men Type: BLOOD SPECIMEN Performed By: #### 5 8410-2 ####[facility] LABORATORYCLIA [id number] [address] WBC (Bld) [#/Vol] 11.36 10*3/uL High 3.70-11.00 [facility] Comment on above: Order Comment: Speci men Type: BLOOD SPECIMEN Performed By: #### 5 8410-2 ####[facility] LABORATORYCLIA [id number] [address] HEPATIC FUNCTION PNLon 06-10 Albumin [Mass/Vol] 3.1 g/dL Low 3.9-4.9 [facility] Comment on above: Order Comment: Speci men Type: BLOOD SPECIMEN Performed By: #### 2 777-1, 36178-9, , HFP ####[facility] LABORATORYCLIA [id number] [address] ALP [Catalytic activity/Vol] 73 U/L Normal 38-113 [facility] Comment on above: Order Comment: Speci men Type: BLOOD SPECIMEN Performed By: #### 2 777-1, 61289-9, , HFP ####[facility] LABORATORYCLIA [id number] [address] [place] ALT With P-5'-P [Catalytic activity/Vol] 64 U/L High 10-54 [facility] Comment on above: Order Comment: Speci men Type: BLOOD SPECIMEN Performed By: #### 2 777-1, 33356-3, , HFP ####[facility] LABORATORYCLIA [id number] [address] AST With P-5'-P [Catalytic activity/Vol] 44 U/L High 14-40 [facility] Comment on above: Order Comment: Speci men Type: BLOOD SPECIMEN Performed By: #### 2 777-1, 30803-1, , HFP ####[facility] GENERAL LABORATORYCLIA [id number] [address] Bilirubin [Mass/Vol] 0.5 mg/dL Normal 0.2-1.3 [facility] Comment on above: Order Comment: Speci men Type: BLOOD SPECIMEN Performed By: #### 2 777-1, 47037-1, , HFP ####[facility] GENERAL LABORATORYCLIA [id number] [address] Bilirubin.conjugated [Mass/Vol] mg/dL Normal <0.2 [facility] Comment on above: Order Comment: Speci men Type: BLOOD SPECIMEN Performed By: #### 2 777-1, 91684-5, , HFP ####[facility] GENERAL LABORATORYCLIA [id number] [address] Protein [Mass/Vol] 5.7 g/dL Low 6.3-8.0 [facility] Comment on above: Order Comment: Speci men Type: BLOOD SPECIMEN Performed By: #### 2 777-1, 26890-6, , HFP ####[facility] GENERAL LABORATORYCLIA [id number] [address] LEVETIRACETAMon 06-10-2021 levETIRAcetam [Mass/Vol] 57.7 ug/mL High 12.0-46.0 [facility] Comment on above: Order Comment: Speci men Type: BLOOD SPECIMEN Result Comment: This test is not suitable for patients receiving treatment with the drug brivaracetam (Briviact). The drug causes an interference that may lead to falsely elevated levetiracetam results.Reference ranges and high/low indicator flags are provided as general guidelines only. The treating physician must determine appropriate target levels/dosing based on the specific clinical situation.This test was developed and its performance characteristics determined by [facility]'s Isrrael Perez [facility] [place] ([facility]). It has not been cleared or approved by the FDA. [facility] is regulated under CLIA as qualified to perform high complexity testing. This test is used for clinical purposes. It should not be regarded as investigational or for research. Performed By: #### L DARY ####[facility] LAB REFERENCE LABCLIA [id number] [id number] [address] [place] Magnesium SerPl-ncon 06-10 Magnesium [Mass/Vol] 2.7 mg/dL High 1.7-2.3 [facility] Comment on above: Order Comment: Speci men Type: BLOOD SPECIMEN Performed By: #### 2 777-1, 84709-4, , [facility] ####[facility] LABORATORYCLIA [id number] [place] [address] [place] Phosphate SerPl-ncon 06-10 Phosphate [Mass/Vol] 1.8 mg/dL Low 2.7-4.8 [facility] Comment on above: Order Comment: Speci men Type: BLOOD SPECIMEN Performed By: #### 2 777-1, 24807-0, , [facility] ####[facility] LABORATORYCLIA [id number] [place] [address] [place] ALLIED HEALTHon 06-09-2021 ALLIED HEALTH Normal [facility] ALLIED HEALTH Normal [facility] ALLIED HEALTH Normal [facility] ALLIED HEALTH Normal [facility] Basic metabolic 2000 panelon 06-09-2021 Anion gap [Moles/Vol] 8 mmol/L Low 9-18 [facility] Comment on above: Order Comment: Speci men Type: BLOOD SPECIMEN Performed By: #### 2 4321-2, 2776-05, ####[facility] LABORATORYCLIA [id number] [place], [place] [address] [place] [address] STATES [facility] Calcium [Mass/Vol] 8.3 mg/dL Low 8.5-10.2 [facility] Comment on above: Order Comment: Speci men Type: BLOOD SPECIMEN Performed By: #### 2 4321-2, 2776-05, ####[facility] LABORATORYCLIA [id number] [place], [place] [address] [place] [address] [place] [facility] Chloride [Moles/Vol] 116 mmol/L High 97-105 [facility] Comment on above: Order Comment: Speci men Type: BLOOD SPECIMEN Performed By: #### 2 4321-2, 2776-05, ####[facility] LABORATORYCLIA [id number] [address] STATES [facility] CO2 [Moles/Vol] 27 mmol/L Normal 22-30 [facility] Comment on above: Order Comment: Speci men Type: BLOOD SPECIMEN Performed By: #### 2 4321-2, 2776-05, ####[facility] LABORATORYCLIA [id number] [address] STATES [facility] Creatinine [Mass/Vol] 0.70 mg/dL Low 0.73-1.22 [facility] Comment on above: Order Comment: Speci men Type: BLOOD SPECIMEN Performed By: #### 2 4321-2, 2776-05, ####[facility] LABORATORYCLIA [id number] [place] [address] [place] GFR/1.73 sq M.predicted MDRD (S/P/Bld) [Vol rate/Area] mL/min/{1.73_m2} Normal [facility] Comment on above: Order Comment: Speci men Type: BLOOD SPECIMEN Result Comment: >60e GFR (Estimated GFR) Units of measure: mL/min/1.73 meters squaredeGFR is derived from the reexpressed MDRD Study equation using the following parameters: serum creatinine, age, gender and race. The creatinine assay has been calibrated to be traceable to IDMS. An eGFR <60 mL/min/1.73m2 for >3 months is consistent with chronic kidney disease. Refer to KDOQI guidelines for clinical interpretation. In patients with unstable renal function, e.g. those with acute kidney injury, the eGFR may not accurately reflect actual GFR. Performed By: #### 2 4321-2, 2776-05, ####[facility] LABORATORYCLIA [id number] [place] [address] [place] Glucose [Mass/Vol] 123 mg/dL High 74-99 [facility] Comment on above: Order Comment: Speci men Type: BLOOD SPECIMEN Result Comment: The [place] Diabetes Association (ADA) provides guidance for cutoff values for fasting glucose and random glucose. The ADA defines fasting as no caloric intake for at least 8 hours. Fasting plasma glucose results between 100 to 125 mg/dL indicate increased risk for diabetes (prediabetes).Fasting plasma glucose results greater than or equal to 126 mg/dL meet the criteria for diagnosis of diabetes. In the absence of unequivocal hyperglycemia, results should be confirmed by repeat testing. In a patient with classic symptoms of hyperglycemia or hyperglycemic crisis, random plasma glucose results greater than or equal to 200 mg/dL meet the criteria for diagnosis of diabetes.Reference: Standards of Medical Care in Diabetes 2016, [place] [employer]. Diabetes Care. 2016.39(Suppl 1). Performed By: #### 2 4321-2, 2776-05, ####[facility] LABORATORYCLIA [id number] [place] [address] [place] Potassium [Moles/Vol] 3.5 mmol/L Low 3.7-5.1 [facility] Comment on above: Order Comment: Speci men Type: BLOOD SPECIMEN Performed By: #### 2 4321-2, 27711-04, ####[facility] LABORATORYCLIA [id number] [place] [address] [place] Sodium [Moles/Vol] 151 mmol/L High 136-144 [facility] Comment on above: Order Comment: Speci men Type: BLOOD SPECIMEN Performed By: #### 2 4321-2, 2776-1, ####[facility] LABORATORYCLIA [id number] [address] Urea nitrogen [Mass/Vol] 39 mg/dL High 9-24 [facility] Comment on above: Order Comment: Speci men Type: BLOOD SPECIMEN Performed By: #### 2 4321-2, 2776-, ####[facility] LABORATORYCLIA [id number] [address] CBC panel Auto (Bld)on 06-09 Erythrocyte distribution width (RBC) [Ratio] 16.2 % High 11.5-15.0 [facility] Comment on above: Order Comment: Speci men Type: BLOOD SPECIMEN Performed By: #### 5 8410-2 ####[facility] LABORATORYCLIA [id number] [address] Hematocrit (Bld) [Volume fraction] 33.7 % Low 39.0-51.0 [facility] Comment on above: Order Comment: Speci men Type: BLOOD SPECIMEN Performed By: #### 5 8410-2 ####[facility] LABORATORYCLIA [id number] [address] Hemoglobin (Bld) [Mass/Vol] 10.2 g/dL Low 13.0-17.0 [facility] Comment on above: Order Comment: Speci men Type: BLOOD SPECIMEN Performed By: #### 5 8410-2 ####[facility] LABORATORYCLIA [id number] [address] MCH (RBC) [Entitic mass] 27.4 pg Normal 26.0-34.0 [facility] Comment on above: Order Comment: Speci men Type: BLOOD SPECIMEN Performed By: #### 5 8410-2 ####[facility] LABORATORYCLIA [id number] [address] MCHC (RBC) [Mass/Vol] 30.3 g/dL Low 30.5-36.0 [facility] Comment on above: Order Comment: Speci men Type: BLOOD SPECIMEN Performed By: #### 5 8410-2 ####[facility] LABORATORYCLIA [id number] [address] MCV (RBC) [Entitic vol] 90.6 fL Normal 80.0-100.0 [facility] Comment on above: Order Comment: Speci men Type: BLOOD SPECIMEN Performed By: #### 5 8410-2 ####[facility] LABORATORYCLIA [id number] [address] Nucleated RBC (Bld) [#/Vol] 10*3/uL Normal <0.01 [facility] Comment on above: Order Comment: Speci men Type: BLOOD SPECIMEN Performed By: #### 5 8410-2 ####[facility] LABORATORYCLIA [id number] [address] Platelet mean volume (Bld) [Entitic vol] 10.3 fL Normal 9.0-12.7 [facility] Comment on above: Order Comment: Speci men Type: BLOOD SPECIMEN Performed By: #### 5 8410-2 ####[facility] LABORATORYCLIA [id number] [address] Platelets (Bld) [#/Vol] 219 10*3/uL Normal 150-400 [facility] Comment on above: Order Comment: Speci men Type: BLOOD SPECIMEN Performed By: #### 5 8410-2 ####[facility] LABORATORYCLIA [id number] [address] RBC (Bld) [#/Vol] 3.72 10*6/uL Low 4.20-6.00 [facility] Comment on above: Order Comment: Speci men Type: BLOOD SPECIMEN Performed By: #### 5 8410-2 ####[facility] LABORATORYCLIA [id number] [address] WBC (Bld) [#/Vol] 13.02 10*3/uL High 3.70-11.00 [facility] Comment on above: Order Comment: Speci men Type: BLOOD SPECIMEN Performed By: #### 5 8410-2 ####[facility] LABORATORYCLIA [id number] [address] CONSULT PROGon 06-09-2021 CONSULT PROG Normal [facility] CONSULT PROG Normal [facility] CT BRAIN WO IVCONon 06-09-[address] BRAIN WO IVCON Normal [facility] Magnesium SerPl-mCncon 06-09 Magnesium [Mass/Vol] 2.8 mg/dL High 1.7-2.3 [facility] Comment on above: Order Comment: Speci men Type: BLOOD SPECIMEN Performed By: #### 2 4321-2, 2777-1, 41839-7 ####[facility] LABORATORYCLIA [id number] [address] NURSING PROGon 06-09-2021 NURSING PROG Normal [facility] NUTRITIONon 06-09-2021 NUTRITION Normal [facility] PT EDon 06-09-2021 PT ED Normal [facility] Phosphate SerPl-mCncon 06-09 Phosphate [Mass/Vol] 2.2 mg/dL Low 2.7-4.8 [facility] Comment on above: Order Comment: Speci men Type: BLOOD SPECIMEN Performed By: #### 2 4321-2, 2777-1, 38865-0 ####[facility] LABORATORYCLIA [id number] [address] Vancomycin random [Mass/Vol] on 06-09-2021 Vancomycin [Mass/Vol] 18.9 ug/mL Normal 10.0-20.0 [facility] Comment on above: Order Comment: Speci men Type: BLOOD SPECIMEN Result Comment: Refe rence ranges and high/low indicator flags are provided as general guidelines only. The treating physician must determine appropriate target levels/dosing based on the specific clinical situation. Performed By: #### 4 091-5 ####[facility] LABORATORYCLIA [id number] [place] [address] [place] XR ABD 2V SUPINE W UPR/DECUB /CTLon 06-09-2021 XR ABD 2V SUPINE W UPR/DECUB/CTL Normal [facility] XR CHEST 1V FRONTALon 2021 XR CHEST 1V FRONTAL Normal [facility] XR NECK SOFT TISSUE 2V AP/LA Ton 06-09-2021 XR NECK SOFT TISSUE 2V AP/LAT Normal [facility] XR SKULL 2V AP/LATon 022 XR SKULL 2V AP/LAT Normal [facility] ALLIED HEALTHon 06-08-2021 ALLIED HEALTH Normal [facility] ANES POSTPROC EVALon 022 ANES POSTPROC EVAL Normal [facility] ANES PRE-OPon 06-08-2021 ANES PRE-OP Normal [facility] BRIEF OP NOTon 06-08-2021 BRIEF OP NOT Normal [facility] Bacteria Spec Anaerobe Culto n 06-08-2021 Bacteria identified Anaer cx Nom (Unsp spec) ORGANISM ID: 1 Rare Staphylococcus saccharolyticus Identification performed by [facility] CC-Main See scanned document for susceptibility report Normal [facility] Comment on above: Performed By: #### 6 462-6 635-3 ####[facility] LABORATORYCLIA [id number] [place] [address] [place] Bacteria Wnd Culton 06-08-19 22 Bacteria identified Cx Nom (Wound) CULTURE, INTRAOPERATIVE HARDWARE: No growth 5 days GRAM STAIN: Not performed on specimen type Normal [facility] Comment on above: Performed By: #### 6 462-6 635-3 ####[facility] LABORATORYCLIA [id number] [place] [address] [place] Basic metabolic 2000 panelon 06-08-2021 Anion gap [Moles/Vol] 9 mmol/L Normal 9-18 [facility] Comment on above: Order Comment: Speci men Type: BLOOD SPECIMEN Performed By: #### 2 4321-2, 2777-1, 35174-8 ####[facility] LABORATORYCLIA [id number] [place], [place] [address] [place] [address] [place] [facility] Calcium [Mass/Vol] 8.7 mg/dL Normal 8.5-10.2 [facility] Comment on above: Order Comment: Speci men Type: BLOOD SPECIMEN Performed By: #### 2 4321-2, 7-, ####[facility] LABORATORYCLIA [id number] [address] [place] Chloride [Moles/Vol] 113 mmol/L High 97-105 [facility] Comment on above: Order Comment: Speci men Type: BLOOD SPECIMEN Performed By: #### 2 4321-2, 2776-05, ####[facility] LABORATORYCLIA [id number] [address] [place] [facility] CO2 [Moles/Vol] 26 mmol/L Normal 22-30 [facility] Comment on above: Order Comment: Speci men Type: BLOOD SPECIMEN Performed By: #### 2 4321-2, 2776-05, ####[facility] LABORATORYCLIA [id number] [address] [place] Creatinine [Mass/Vol] 0.68 mg/dL Low 0.73-1.22 [facility] Comment on above: Order Comment: Speci men Type: BLOOD SPECIMEN Performed By: #### 2 4321-2, 2776-05, ####[facility] LABORATORYCLIA [id number] [address] [place] GFR/1.73 sq M.predicted MDRD (S/P/Bld) [Vol rate/Area] mL/min/{1.73_m2} Normal [facility] Comment on above: Order Comment: Speci men Type: BLOOD SPECIMEN Result Comment: >60e GFR (Estimated GFR) Units of measure: mL/min/1.73 meters squaredeGFR is derived from the reexpressed MDRD Study equation using the following parameters: serum creatinine, age, gender and race. The creatinine assay has been calibrated to be traceable to IDMS. An eGFR <60 mL/min/1.73m2 for >3 months is consistent with chronic kidney disease. Refer to KDOQI guidelines for clinical interpretation. In patients with unstable renal function, e.g. those with acute kidney injury, the eGFR may not accurately reflect actual GFR. Performed By: #### 2 4321-2, 2776-05, ####[facility] LABORATORYCLIA [id number] [place] [address] [place] Glucose [Mass/Vol] 146 mg/dL High 74-99 [facility] Comment on above: Order Comment: Speci men Type: BLOOD SPECIMEN Result Comment: The [place] [employer] (ADA) provides guidance for cutoff values for fasting glucose and random glucose. The ADA defines fasting as no caloric intake for at least 8 hours. Fasting plasma glucose results between 100 to 125 mg/dL indicate increased risk for diabetes (prediabetes).Fasting plasma glucose results greater than or equal to 126 mg/dL meet the criteria for diagnosis of diabetes. In the absence of unequivocal hyperglycemia, results should be confirmed by repeat testing. In a patient with classic symptoms of hyperglycemia or hyperglycemic crisis, random plasma glucose results greater than or equal to 200 mg/dL meet the criteria for diagnosis of diabetes.Reference: Standards of Medical Care in Diabetes 2016, [place] [employer]. Diabetes Care. 2016.39(Suppl 1). Performed By: #### 2 1-2, 2776-05, ####[facility]ATORYCLIA [id number] [address] [place] Potassium [Moles/Vol] 3.6 mmol/L Low 3.7-5.1 [facility] Comment on above: Order Comment: Speci men Type: BLOOD SPECIMEN Performed By: #### 2 4321-2, 2776-05, ####[facility]ORATORYCLIA [id number] [place] [address] [place] Sodium [Moles/Vol] 148 mmol/L High 136-144 [facility] Comment on above: Order Comment: Speci men Type: BLOOD SPECIMEN Performed By: #### 2 1-2, 2776-05, ####[facility]ATORYCLIA [id number] [address] STATES [facility] Urea nitrogen [Mass/Vol] 36 mg/dL High 9-24 [facility] Comment on above: Order Comment: Speci men Type: BLOOD SPECIMEN Performed By: #### 2 4321-2, 2777-1, 90075-2 ####[facility]ATORYCLIA [id number] [address] CASE MANAGEMon 06-08-2021 CASE MANAGEM Normal [facility] CBC panel Auto (Bld)on 06-08 Erythrocyte distribution width (RBC) [Ratio] 16.0 % High 11.5-15.0 [facility] Comment on above: Order Comment: Speci men Type: BLOOD SPECIMEN Performed By: #### 5 8410-2 ####[facility]ATORYCLIA [id number] [address] Hematocrit (Bld) [Volume fraction] 38.4 % Low 39.0-51.0 [facility] Comment on above: Order Comment: Speci men Type: BLOOD SPECIMEN Performed By: #### 5 8410-2 ####[facility]ATORYCLIA [id number] [address] Hemoglobin (Bld) [Mass/Vol] 12.1 g/dL Low 13.0-17.0 [facility] Comment on above: Order Comment: Speci men Type: BLOOD SPECIMEN Performed By: #### 5 8410-2 ####[facility]ORYCLIA [id number] [address] MCH (RBC) [Entitic mass] 28.3 pg Normal 26.0-34.0 [facility] Comment on above: Order Comment: Speci men Type: BLOOD SPECIMEN Performed By: #### 5 8410-2 ####[facility]ATORYCLIA [id number] [address] OF [facility] MCHC (RBC) [Mass/Vol] 31.5 g/dL Normal 30.5-36.0 [facility] Comment on above: Order Comment: Speci men Type: BLOOD SPECIMEN Performed By: #### 5 8410-2 ####[facility]ATORYCLIA [id number] [address] MCV (RBC) [Entitic vol] 89.9 fL Normal 80.0-100.0 [facility] Comment on above: Order Comment: Speci men Type: BLOOD SPECIMEN Performed By: #### 5 8410-2 ####[facility]ATORYCLIA [id number] [address] Nucleated RBC (Bld) [#/Vol] 10*3/uL Normal <0.01 [facility] Comment on above: Order Comment: Speci men Type: BLOOD SPECIMEN Performed By: #### 5 8410-2 ####[facility]ATORYCLIA [id number] [address] Platelet mean volume (Bld) [Entitic vol] 10.3 fL Normal 9.0-12.7 [facility] Comment on above: Order Comment: Speci men Type: BLOOD SPECIMEN Performed By: #### 5 8410-2 ####[facility]ORYCLIA [id number] [address] Platelets (Bld) [#/Vol] 236 10*3/uL Normal 150-400 [facility] Comment on above: Order Comment: Speci men Type: BLOOD SPECIMEN Performed By: #### 5 8410-2 ####[facility]ORYCLIA [id number] [address] RBC (Bld) [#/Vol] 4.27 10*6/uL Normal 4.20-6.00 [facility] Comment on above: Order Comment: Speci men Type: BLOOD SPECIMEN Performed By: #### 5 8410-2 ####[facility]ORYCLIA [id number] [address] [place] WBC (Bld) [#/Vol] 11.06 10*3/uL High 3.70-11.00 [facility] Comment on above: Order Comment: Speci men Type: BLOOD SPECIMEN Performed By: #### 5 8410-2 ####[facility]ORYCLIA [id number] [address] CONSULT PROGon 06-08-2021 CONSULT PROG Normal [facility] CT BRAIN WO IVCONon 06-08-19 CT BRAIN WO IVCON Normal [facility] Magnesium SerPl-mCncon 06-08 Magnesium [Mass/Vol] 2.8 mg/dL High 1.7-2.3 [facility] Comment on above: Order Comment: Speci men Type: BLOOD SPECIMEN Performed By: #### 2 4321-2, 2777-1, 32684-5 ####[facility]ATORYCLIA [id number] [address] Microorganism Spec Culton Microorganism identified Cx Nom (Unsp spec) CULTURE, FUNGAL: No Fungus isolated after 28 days FUNGAL SMEAR: No fungus seen [facility] Comment on above: Performed By: #### 1 1475-1 ####[facility]ATORYCLIA [id number] [address] NURSING PROGon 06-08-2021 NURSING PROG Normal [facility] OPERATIVE NOon 06-08-2021 OPERATIVE NO Normal [facility] OPERATIVE NO Normal [facility] PT panel Coag (PPP)on 2021 INR Coag (PPP) [Relative time] 1.1 {INR} Normal 0.9-1.3 [facility] Comment on above: Order Comment: Speci men Type: BLOOD SPECIMEN Result Comment: Yris min K Antagonist (VKA) Therapeutic Range: INR 2 to 3 (Target INR of 2.5)Note: For patients treated with VKA drugs, such as warfarin, the [place] [employer] 2012 Guideline recommends a therapeutic INR range of 2 to 3 (target INR of 2.5). This recommendation includes high-risk patients with antiphospholipid syndrome with previous arterial or venous thromboembolism, current-generation mechanical or bioprosthetic aortic heart valve replacement.Note: Patients with mechanical aortic valve replacement and additional risk factors for thromboembolic events (atrial fibrillation, previous thromboembolism, LV dysfunction, hypercoagulable conditions) or an older generation mechanical AVR (i.e., ball in-Cage) or any mechanical MVR should have a INR therapeutic range of 2.5 to 3.5 (target INR of 3).Jeffy GH, et al. Chest 2012, 141:7S-47SNishmariangel RA, et al. [facility] 2017, 70: 252-289 Performed By: #### 3 4528-0, 76079-2 ####[facility]ATORYCLIA [id number] [address] PT Coag (PPP) [Time] 11.9 s Normal 9.7-13.0 [facility] Comment on above: Order Comment: Speci men Type: BLOOD SPECIMEN Performed By: #### 3 4528-0, 27406-0 ####[facility]ATORYCLIA [id number] [address] STATES [place] [facility] Phosphate SerPl-mCncon 06-08 Phosphate [Mass/Vol] 2.3 mg/dL Low 2.7-4.8 [facility] Comment on above: Order Comment: Speci men Type: BLOOD SPECIMEN Performed By: #### 2 4321-2, 2777-1, 87868-2 ####[facility]ATORYCLIA [id number] [address] aPTT PPPon 06-08-2021 aPTT Coag (PPP) [Time] 24.2 s Normal 23.0-32.4 [facility] Comment on above: Order Comment: Speci men Type: BLOOD SPECIMEN Performed By: #### 3 4528-0, 08303-4 ####[facility]ATORYCLIA [id number] [address] [place] [facility] ALLIED HEALTHon 06-07-2021 ALLIED HEALTH Normal [facility] ALLIED HEALTH Normal [facility] ALLIED HEALTH Normal [facility] Bacteria CSF Culton 06-07-19 22 Bacteria identified Cx Nom (CSF) CULTURE, CSF: No growth 14 days GRAM STAIN: No organisms seen Rare Mononuclear cells Rare Polymorphonuclear leukocytes Gram stain performed on cytospun specimen. Normal [facility] Comment on above: Performed By: #### 6 06-4 ####[facility]ATORYCLIA [id number] [address] [place] Basic metabolic 2000 panelon 06-07-2021 Anion gap [Moles/Vol] 9 mmol/L Normal 9-18 [facility] Comment on above: Order Comment: Speci men Type: BLOOD SPECIMEN Performed By: #### 1 9123-9, 2777-1, 82757-1 ####[facility]ATORYCLIA [id number] [address] [place] Calcium [Mass/Vol] 8.8 mg/dL Normal 8.5-10.2 [facility] Comment on above: Order Comment: Speci men Type: BLOOD SPECIMEN Performed By: #### 1 9123-9, 2776-1, 74565-1 ####[facility]ATORYCLIA [id number] [address] [place] Chloride [Moles/Vol] 111 mmol/L High 97-105 [facility] Comment on above: Order Comment: Speci men Type: BLOOD SPECIMEN Performed By: #### 1 9123-9, 7-1, 83457-1 ####[facility]ATORYCLIA [id number] [address] [place] CO2 [Moles/Vol] 27 mmol/L Normal 22-30 [facility] Comment on above: Order Comment: Speci men Type: BLOOD SPECIMEN Performed By: #### 1 9123-9, 2777-1, 88165-7 ####[facility]ATORYCLIA [id number] [address] [place] Creatinine [Mass/Vol] 0.66 mg/dL Low 0.73-1.22 [facility] Comment on above: Order Comment: Speci men Type: BLOOD SPECIMEN Performed By: #### 1 9123-9, 2777-1, 43638-1 ####[facility]PITALIA [id number] [place] [address] [place] GFR/1.73 sq M.predicted MDRD (S/P/Bld) [Vol rate/Area] mL/min/{1.73_m2} Normal [facility] Comment on above: Order Comment: Speci men Type: BLOOD SPECIMEN Result Comment: >60e GFR (Estimated GFR) Units of measure: mL/min/1.73 meters squaredeGFR is derived from the reexpressed MDRD Study equation using the following parameters: serum creatinine, age, gender and race. The creatinine assay has been calibrated to be traceable to IDMS. An eGFR <60 mL/min/1.73m2 for >3 months is consistent with chronic kidney disease. Refer to KDOQI guidelines for clinical interpretation. In patients with unstable renal function, e.g. those with acute kidney injury, the eGFR may not accurately reflect actual GFR. Performed By: #### 1 9123-9, 2777-, 30252-0 ####[facility] HOSPITALIA [id number] [place] [address] [place] Glucose [Mass/Vol] 123 mg/dL High 74-99 [facility] Comment on above: Order Comment: Speci men Type: BLOOD SPECIMEN Result Comment: The [place] [employer] (ADA) provides guidance for cutoff values for fasting glucose and random glucose. The ADA defines fasting as no caloric intake for at least 8 hours. Fasting plasma glucose results between 100 to 125 mg/dL indicate increased risk for diabetes (prediabetes).Fasting plasma glucose results greater than or equal to 126 mg/dL meet the criteria for diagnosis of diabetes. In the absence of unequivocal hyperglycemia, results should be confirmed by repeat testing. In a patient with classic symptoms of hyperglycemia or hyperglycemic crisis, random plasma glucose results greater than or equal to 200 mg/dL meet the criteria for diagnosis of diabetes.Reference: Standards of Medical Care in Diabetes 2016, [place] [employer]. Diabetes Care. 2016.39(Suppl 1). Performed By: #### 1 9123-9, 2777-1, 67492-4 ####[facility] LABORATORYIA [id number] [place] [address] [place] Potassium [Moles/Vol] 3.6 mmol/L Low 3.7-5.1 [facility] Comment on above: Order Comment: Speci men Type: BLOOD SPECIMEN Performed By: #### 1 9123-9, 2777, 87671-7 ####[facility]ATORYCLIA [id number] [address] Sodium [Moles/Vol] 147 mmol/L High 136-144 [facility] Comment on above: Order Comment: Speci men Type: BLOOD SPECIMEN Performed By: #### 1 9123-9, 2776-05, 41965-6 ####[facility]ATORYCLIA [id number] [address] Urea nitrogen [Mass/Vol] 30 mg/dL High 9-24 [facility] Comment on above: Order Comment: Speci men Type: BLOOD SPECIMEN Performed By: #### 1 9123-9, 2776-05, 03034-4 ####[facility]ATORYCLIA [id number] [address] CBC W Auto Differential pane l (Bld)on 06-07-2021 Basophils (Bld) [#/Vol] 10*3/uL Normal <0.11 [facility] Comment on above: Order Comment: Speci men Type: BLOOD SPECIMEN Performed By: #### 5 7021-8 ####[facility]ATORYCLIA [id number] [address] Basophils/100 WBC (Bld) 0.2 % Normal [facility] Comment on above: Order Comment: Speci men Type: BLOOD SPECIMEN Performed By: #### 5 7021-8 ####[facility]ATORYCLIA [id number] [address] Differential cell count method Nom (Bld) Auto Normal [facility] Comment on above: Order Comment: Speci men Type: BLOOD SPECIMEN Performed By: #### 5 7021-8 ####[facility]ATORYCLIA [id number] [address] Eosinophils (Bld) [#/Vol] 0.06 10*3/uL Normal <0.46 [facility] Comment on above: Order Comment: Speci men Type: BLOOD SPECIMEN Performed By: #### 5 7021-8 ####[facility]ATORYCLIA [id number] [address] Eosinophils/100 WBC (Bld) 0.6 % Normal [facility] Comment on above: Order Comment: Speci men Type: BLOOD SPECIMEN Performed By: #### 5 7021-8 ####[facility]ORYCLIA [id number] [address] Erythrocyte distribution width (RBC) [Ratio] 15.8 % High 11.5-15.0 [facility] Comment on above: Order Comment: Speci men Type: BLOOD SPECIMEN Performed By: #### 5 7021-8 ####[facility]ATORYCLIA [id number] [address] Hematocrit (Bld) [Volume fraction] 40.4 % Normal 39.0-51.0 [facility] Comment on above: Order Comment: Speci men Type: BLOOD SPECIMEN Performed By: #### 5 7021-8 ####[facility]ATORYCLIA [id number] [address] Hemoglobin (Bld) [Mass/Vol] 12.4 g/dL Low 13.0-17.0 [facility] Comment on above: Order Comment: Speci men Type: BLOOD SPECIMEN Performed By: #### 5 7021-8 ####[facility]ATORYCLIA [id number] [address] IMMATURE GRAN % 0.7 % Normal [facility] Comment on above: Order Comment: Speci men Type: BLOOD SPECIMEN Performed By: #### 5 7021-8 ####[facility]ATORYCLIA [id number] [address] IMMATURE GRAN ABS 0.07 k/uL Normal <0.10 [facility] Comment on above: Order Comment: Speci men Type: BLOOD SPECIMEN Performed By: #### 5 7021-8 ####[facility]ATORYCLIA [id number] [address] Lymphocytes (Bld) [#/Vol] 1.43 10*3/uL Normal 1.00-4.00 [facility] Comment on above: Order Comment: Speci men Type: BLOOD SPECIMEN Performed By: #### 5 7021-8 ####[facility]ATORYCLIA [id number] [address] Lymphocytes/100 WBC (Bld) 14.1 % Normal [facility] Comment on above: Order Comment: Speci men Type: BLOOD SPECIMEN Performed By: #### 5 7021-8 ####[facility]ATORYCLIA [id number] [address] MCH (RBC) [Entitic mass] 27.6 pg Normal 26.0-34.0 [facility] Comment on above: Order Comment: Speci men Type: BLOOD SPECIMEN Performed By: #### 5 7021-8 ####[facility]ORYCLIA [id number] [address] MCHC (RBC) [Mass/Vol] 30.7 g/dL Normal 30.5-36.0 [facility] Comment on above: Order Comment: Speci men Type: BLOOD SPECIMEN Performed By: #### 5 7021-8 ####[facility]ATORYCLIA [id number] [address] MCV (RBC) [Entitic vol] 89.8 fL Normal 80.0-100.0 [facility] Comment on above: Order Comment: Speci men Type: BLOOD SPECIMEN Performed By: #### 5 7021-8 ####[facility]ATORYCLIA [id number] [address] Monocytes (Bld) [#/Vol] 0.82 10*3/uL Normal <0.87 [facility] Comment on above: Order Comment: Speci men Type: BLOOD SPECIMEN Performed By: #### 5 7021-8 ####[facility]ORYCLIA [id number] [address] Monocytes/100 WBC (Bld) 8.1 % Normal [facility] Comment on above: Order Comment: Speci men Type: BLOOD SPECIMEN Performed By: #### 5 7021-8 ####[facility]ATORYCLIA [id number] [address] Neutrophils (Bld) [#/Vol] 7.74 10*3/uL High 1.45-7.50 [facility] Comment on above: Order Comment: Speci men Type: BLOOD SPECIMEN Performed By: #### 5 7021-8 ####[facility]ATORYCLIA [id number] [address] Neutrophils/100 WBC (Bld) 76.3 % Normal [facility] Comment on above: Order Comment: Speci men Type: BLOOD SPECIMEN Performed By: #### 5 7021-8 ####[facility]ORYCLIA [id number] [address] Nucleated RBC (Bld) [#/Vol] 10*3/uL Normal <0.01 [facility] Comment on above: Order Comment: Speci men Type: BLOOD SPECIMEN Performed By: #### 5 7021-8 ####[facility]ATORYCLIA [id number] [address] Nucleated RBC/100 WBC (Bld) [Ratio] 0.0 /100 WBC Normal 0.0 [facility] Comment on above: Order Comment: Speci men Type: BLOOD SPECIMEN Performed By: #### 5 7021-8 ####[facility]ORYCLIA [id number] [address] Platelet mean volume (Bld) [Entitic vol] 10.4 fL Normal 9.0-12.7 [facility] Comment on above: Order Comment: Speci men Type: BLOOD SPECIMEN Performed By: #### 5 7021-8 ####[facility]ORYCLIA [id number] [address] Platelets (Bld) [#/Vol] 236 10*3/uL Normal 150-400 [facility] Comment on above: Order Comment: Speci men Type: BLOOD SPECIMEN Performed By: #### 5 7021-8 ####[facility]ORYCLIA [id number] [address] RBC (Bld) [#/Vol] 4.50 10*6/uL Normal 4.20-6.00 [facility] Comment on above: Order Comment: Speci men Type: BLOOD SPECIMEN Performed By: #### 5 7021-8 ####[facility]ATORYCLIA [id number] [address] WBC (Bld) [#/Vol] 10.14 10*3/uL Normal 3.70-11.00 [facility] Comment on above: Order Comment: Speci men Type: BLOOD SPECIMEN Performed By: #### 5 7021-8 ####[facility]ATORYCLIA [id number] [address] CBC panel Auto (Bld)on 06-07 Erythrocyte distribution width (RBC) [Ratio] 15.8 % High 11.5-15.0 [facility] Comment on above: Order Comment: Speci men Type: BLOOD SPECIMEN Performed By: #### 5 8410-2 ####[facility]ATORYCLIA [id number] [address] Hematocrit (Bld) [Volume fraction] 40.0 % Normal 39.0-51.0 [facility] Comment on above: Order Comment: Speci men Type: BLOOD SPECIMEN Performed By: #### 5 8410-2 ####[facility]ATORYCLIA [id number] [address] Hemoglobin (Bld) [Mass/Vol] 12.3 g/dL Low 13.0-17.0 [facility] Comment on above: Order Comment: Speci men Type: BLOOD SPECIMEN Performed By: #### 5 8410-2 ####[facility]ATORYCLIA [id number] [address] MCH (RBC) [Entitic mass] 27.3 pg Normal 26.0-34.0 [facility] Comment on above: Order Comment: Speci men Type: BLOOD SPECIMEN Performed By: #### 5 8410-2 ####[facility]ORYCLIA [id number] [address] MCHC (RBC) [Mass/Vol] 30.8 g/dL Normal 30.5-36.0 [facility] Comment on above: Order Comment: Speci men Type: BLOOD SPECIMEN Performed By: #### 5 8410-2 ####[facility]ATORYCLIA [id number] [address] MCV (RBC) [Entitic vol] 88.7 fL Normal 80.0-100.0 [facility] Comment on above: Order Comment: Speci men Type: BLOOD SPECIMEN Performed By: #### 5 8410-2 ####[facility]ORYCLIA [id number] [address] Nucleated RBC (Bld) [#/Vol] 10*3/uL Normal <0.01 [facility] Comment on above: Order Comment: Speci men Type: BLOOD SPECIMEN Performed By: #### 5 8410-2 ####[facility]ORYCLIA [id number] [address] Platelet mean volume (Bld) [Entitic vol] 10.0 fL Normal 9.0-12.7 [facility] Comment on above: Order Comment: Speci men Type: BLOOD SPECIMEN Performed By: #### 5 8410-2 ####[facility]ORYCLIA [id number] [address] Platelets (Bld) [#/Vol] 234 10*3/uL Normal 150-400 [facility] Comment on above: Order Comment: Speci men Type: BLOOD SPECIMEN Performed By: #### 5 8410-2 ####[facility]ATORYCLIA [id number] [address] OF [facility] RBC (Bld) [#/Vol] 4.51 10*6/uL Normal 4.20-6.00 [facility] Comment on above: Order Comment: Speci men Type: BLOOD SPECIMEN Performed By: #### 5 8410-2 ####[facility]ORYCLIA [id number] [address] [place] [facility] WBC (Bld) [#/Vol] 11.47 10*3/uL High 3.70-11.00 [facility] Comment on above: Order Comment: Speci men Type: BLOOD SPECIMEN Performed By: #### 5 8410-2 ####[facility]ORYCLIA [id number] [address] CONSULT PROGon 06-07-2021 CONSULT PROG Normal [facility] CONSULT PROG Normal [facility] CSF MANUAL DIFFon 06-07-2021 DIF TTL, CSF 92 cells counted Normal [facility] Comment on above: Order Comment: Speci men Type: CEREBROSPINAL FLUID Performed By: #### 3 4563-7, [id number], [id number] ####[facility]ATORYCLIA [id number] [address] EOSIN%, CSF 1 % Normal [facility] Comment on above: Order Comment: Speci men Type: CEREBROSPINAL FLUID Performed By: #### 3 4563-7, [id number], [id number] ####[facility]ATORYCLIA [id number] [address] [place] [facility] LYMPH%, CSF 21 % Low 50-90 [facility] Comment on above: Order Comment: Speci men Type: CEREBROSPINAL FLUID Performed By: #### 3 4563-7, [id number], [id number] ####[facility]ATORYCLIA [id number] [address] [place] MACRO%, CSF 27 % High <1 [facility] Comment on above: Order Comment: Speci men Type: CEREBROSPINAL FLUID Result Comment: Tati ected result: Previously reported as 22 % on 06/07/2021 at 1:49 PM EST. Performed By: #### 3 4563-7, [id number], [id number] ####[facility]ORYCLIA [id number] [address] [place] MONO%, CSF 36 % Normal 10-50 [facility] Comment on above: Order Comment: Speci men Type: CEREBROSPINAL FLUID Performed By: #### 3 4563-7, [id number], [id number] ####[facility]ORYCLIA [id number] [address] NEUT%, CSF 11 % High 0-3 [facility] Comment on above: Order Comment: Speci men Type: CEREBROSPINAL FLUID Performed By: #### 3 4563-7, [id number], [id number] ####[facility]ORYCLIA [id number] [address] OTHER CL%, CSF 4 % Normal [facility] Comment on above: Order Comment: Speci men Type: CEREBROSPINAL FLUID Result Comment: Path review to follow.Corrected result: Previously reported as 10 % on 06/07/2021 at 1:49 PM EST. Performed By: #### 3 4563-7, [id number], [id number] ####[facility] LABORATORYCLIA [id number] [address] CSF PATHOLOGIST INTERP (LAB REFLEX ORDER-NO BILL)on 06-07-2021 CSF STAFF REVIEW Negative for maligna nt cells. Rare immature myeloid or ventricular lining cells. Normal [facility] Comment on above: Order Comment: Speci men Type: CEREBROSPINAL FLUID Performed By: #### 3 4563-7, [id number], [id number] ####[facility] LABORATORYCLIA [id number] [address] Pathologist name Reviewed by Eloise rebolledo MD [facility] Comment on above: Order Comment: Speci men Type: CEREBROSPINAL FLUID Performed By: #### 3 4563-7, [id number], [id number] ####[facility] LABORATORYCLIA [id number] [address] BRAIN WO IVCONon 06-07-19 CT BRAIN WO IVCON Normal [facility] CT BRAIN WO IVCON Normal [facility] Cell count panel (CSF)on Clarity (CSF) Clear Normal Clear [facility] Comment on above: Order Comment: Speci men Type: CEREBROSPINAL FLUID Performed By: #### 3 4563-7, [id number], [id number] ####[facility] LABORATORYCLIA [id number] [address] Clarity (Unsp spec) Not Indicated Normal Clear [facility] Comment on above: Order Comment: Speci men Type: CEREBROSPINAL FLUID Performed By: #### 3 4563-7, [id number], [id number] ####[facility] LABORATORYCLIA [id number] [address] Color (CSF) Colorless Normal Colorless [facility] Comment on above: Order Comment: Speci men Type: CEREBROSPINAL FLUID Performed By: #### 3 4563-7, [id number], [id number] ####[facility] LABORATORYCLIA [id number] [address] Color (Spun CSF) Not Indicated Normal Colorless [facility] Comment on above: Order Comment: Speci men Type: CEREBROSPINAL FLUID Performed By: #### 3 4563-7, [id number], [id number] ####[facility] LABORATORYCLIA [id number] [address] CSF TUBE NUMBER Sterile Container Normal [facility] Comment on above: Order Comment: Speci men Type: CEREBROSPINAL FLUID Performed By: #### 3 4563-7, [id number], [id number] ####[facility] LABORATORYCLIA [id number] [address] RBC Manual cnt (CSF) [#/Vol] 42 cells/uL High 0-5 [facility] Comment on above: Order Comment: Speci men Type: CEREBROSPINAL FLUID Performed By: #### 3 4563-7, [id number], [id number] ####[facility] LABORATORYCLIA [id number] [address] [place] WBC Manual cnt (CSF) [#/Vol] 1 cells/uL Normal 0-5 [facility] Comment on above: Order Comment: Speci men Type: CEREBROSPINAL FLUID Performed By: #### 3 4563-7, [id number], [id number] ####[facility] LABORATORYCLIA [id number] [address] Glucose CSF-mCncon 2 Glucose (CSF) [Mass/Vol] 92 mg/dL High 40-70 [facility] Comment on above: Order Comment: Speci men Type: CEREBROSPINAL FLUID Result Comment: Lumb ar CSF glucose values of healthy patients are approximately 60% of the plasma values and must always be compared with a concurrently measured plasma value for adequate clinical interpretation.References: 1. Glucose HK (GLUC3) [package insert V 12.0 [place]]. [employer], [place], [place]. September 2015. 2. Michelle Moore, Loki, H. (2015). Chapter 7: Glucose and Lactate. Marianela Rothman.(eds.), Cerebrospinal Fluid in Clinical Neurology. [place]: [employer]. Performed By: #### 2 880-3, 2342-4 ####[facility] LABORATORYCLIA [id number] [address] [place] Lactate (Bld) [Moles/Vol]on 06-07-2021 Lactate [Moles/Vol] 0.9 mmol/L Normal 0.5-2.2 [facility] Comment on above: Order Comment: Speci men Type: BLOOD SPECIMEN Performed By: #### 3 2693-4 ####[facility] LABORATORYCLIA [id number] [address] [place] Lipase SerPl-cCncon 06-07-19 22 Lipase [Catalytic activity/Vol] 35 U/L Normal 16-61 [facility] Comment on above: Order Comment: Speci men Type: BLOOD SPECIMEN Performed By: #### 3 040-3, PROCAL ####[facility] LABORATORYCLIA [id number] [address] [place] Magnesium SerPl-mCncon 06-07 Magnesium [Mass/Vol] 2.7 mg/dL High 1.7-2.3 [facility] Comment on above: Order Comment: Speci men Type: BLOOD SPECIMEN Performed By: #### 1 9123-9, 2777-1, 37304-2 ####[facility] LABORATORYCLIA [id number] [address] PROCALCITONIN (LAB)on 2021 Procalcitonin [Mass/Vol] 0.13 ng/mL High <0.09 [facility] Comment on above: Order Comment: Speci men Type: BLOOD SPECIMEN Result Comment: For a guided interpretation of test results, please visit the Change in Procalcitonin Calculator, [email or web address]. Performed By: #### 3 040-3, PROCAL ####[facility] LABORATORYCLIA [id number] [address] [place] Phosphate SerPl-mCncon 06-07 Phosphate [Mass/Vol] 1.9 mg/dL Low 2.7-4.8 [facility] Comment on above: Order Comment: Speci men Type: BLOOD SPECIMEN Performed By: #### 1 9123-9, 2777-1, 44601-5 ####[facility] LABORATORYCLIA [id number] [address] [place] Prot CSF-mCncon 06-07-2021 Protein (CSF) [Mass/Vol] 33 mg/dL Normal 15-45 [facility] Comment on above: Order Comment: Speci men Type: CEREBROSPINAL FLUID Performed By: #### 2 880-3, 2342-4 ####[facility] LABORATORYCLIA [id number] [address] SARS-CoV-2 RNA Resp Ql MEGAN+p robeon 06-07-2021 SARS-CoV-2 (COVID-19) RNA MEGAN+probe Ql (Resp) COVID 19 RESULT: SARS-CoV-2 (Agent of COVID-19) Not Detected by PCR. This test has been authorized by FDA under an Emergency Use Authorization (EUA). [facility] Comment on above: Performed By: #### 9 4500-6 ####[facility] LABORATORYCLIA [id number] [address] TYPE AND SCREENon 06-07-2021 ABO O [facility] Comment on above: Order Comment: Speci men Type: BLOOD SPECIMEN Performed By: #### T SCR ####[facility] BLOOD BANKCLIA [id number] [address] HISTORICAL AB SCR STATUS Negative [facility] Comment on above: Order Comment: Speci men Type: BLOOD SPECIMEN Performed By: #### T SCR ####[facility] BLOOD BANKCLIA [id number] [address] Rh Nom (Bld) Positive [facility] Comment on above: Order Comment: Speci men Type: BLOOD SPECIMEN Performed By: #### T SCR ####[facility] BLOOD BANKCLIA [id number] [address] TYPE AND SCREEN EXPIRATION 06/10/2021 23:59 [facility] Comment on above: Order Comment: Speci men Type: BLOOD SPECIMEN Performed By: #### T SCR ####[facility] BLOOD BANKCLIA [id number] [address] Vancomycin random [Mass/Vol] on 06-07-2021 Vancomycin [Mass/Vol] 16.5 ug/mL Normal 10.0-20.0 [facility] Comment on above: Order Comment: Speci men Type: BLOOD SPECIMEN Result Comment: Refe rence ranges and high/low indicator flags are provided as general guidelines only. The treating physician must determine appropriate target levels/dosing based on the specific clinical situation. Performed By: #### 4 091-5 ####[facility] LABORATORYCLIA [id number] [address] [place] XR CHEST 1V FRONTAL PORTon 0 06-07-2021 XR CHEST 1V FRONTAL PORT Normal [facility] Basic metabolic 2000 panelon 06-06-2021 Anion gap [Moles/Vol] 11 mmol/L Normal 9-18 [facility] Comment on above: Order Comment: Speci men Type: BLOOD SPECIMEN Performed By: #### 2 4321-2, , 2776-05 ####[facility] LABORATORYCLIA [id number] [address] [place] Calcium [Mass/Vol] 8.6 mg/dL Normal 8.5-10.2 [facility] Comment on above: Order Comment: Speci men Type: BLOOD SPECIMEN Performed By: #### 2 4321-2, , 2776-05 ####[facility] LABORATORYCLIA [id number] [address] [place] Chloride [Moles/Vol] 108 mmol/L High 97-105 [facility] Comment on above: Order Comment: Speci men Type: BLOOD SPECIMEN Performed By: #### 2 4321-2, , 2776-05 ####[facility] LABORATORYCLIA [id number] [address] [place] CO2 [Moles/Vol] 25 mmol/L Normal 22-30 [facility] Comment on above: Order Comment: Speci men Type: BLOOD SPECIMEN Performed By: #### 2 4321-2, , 2776-05 ####[facility] LABORATORYCLIA [id number] [address] [place] Creatinine [Mass/Vol] 0.76 mg/dL Normal 0.73-1.22 [facility] Comment on above: Order Comment: Speci men Type: BLOOD SPECIMEN Performed By: #### 2 4321-2, , 2776-05 ####[facility] HOSPITALIA [id number] [place] [address] [place] GFR/1.73 sq M.predicted MDRD (S/P/Bld) [Vol rate/Area] mL/min/{1.73_m2} Normal [facility] Comment on above: Order Comment: Speci men Type: BLOOD SPECIMEN Result Comment: >60e GFR (Estimated GFR) Units of measure: mL/min/1.73 meters squaredeGFR is derived from the reexpressed MDRD Study equation using the following parameters: serum creatinine, age, gender and race. The creatinine assay has been calibrated to be traceable to IDMS. An eGFR <60 mL/min/1.73m2 for >3 months is consistent with chronic kidney disease. Refer to KDOQI guidelines for clinical interpretation. In patients with unstable renal function, e.g. those with acute kidney injury, the eGFR may not accurately reflect actual GFR. Performed By: #### 2 4321-2, , 2776-05 ####[facility] HOSPITALIA [id number] [place] [address] [place] Glucose [Mass/Vol] 116 mg/dL High 74-99 [facility] Comment on above: Order Comment: Speci men Type: BLOOD SPECIMEN Result Comment: The [place] Diabetes Association (ADA) provides guidance for cutoff values for fasting glucose and random glucose. The ADA defines fasting as no caloric intake for at least 8 hours. Fasting plasma glucose results between 100 to 125 mg/dL indicate increased risk for diabetes (prediabetes).Fasting plasma glucose results greater than or equal to 126 mg/dL meet the criteria for diagnosis of diabetes. In the absence of unequivocal hyperglycemia, results should be confirmed by repeat testing. In a patient with classic symptoms of hyperglycemia or hyperglycemic crisis, random plasma glucose results greater than or equal to 200 mg/dL meet the criteria for diagnosis of diabetes.Reference: Standards of Medical Care in Diabetes 2016, [place] [employer] Association. Diabetes Care. 2016.39(Suppl 1). Performed By: #### 2 4321-2, 43840-1, 2776- ####[facility] LABORATORYIA [id number] [place], [place] [address] [place] [address] [place] [facility] Potassium [Moles/Vol] 3.5 mmol/L Low 3.7-5.1 [facility] Comment on above: Order Comment: Speci men Type: BLOOD SPECIMEN Performed By: #### 2 4321-2, , 2776-05 ####[facility] LABORATORYCLIA [id number] [place] [address] [place] [facility] Sodium [Moles/Vol] 144 mmol/L Normal 136-144 [facility] Comment on above: Order Comment: Speci men Type: BLOOD SPECIMEN Performed By: #### 2 4321-2, , 2776-05 ####[facility] LABORATORYCLIA [id number] [address] Urea nitrogen [Mass/Vol] 31 mg/dL High 9-24 [facility] Comment on above: Order Comment: Speci men Type: BLOOD SPECIMEN Performed By: #### 2 4321-2, , 2776-05 ####[facility] LABORATORYCLIA [id number] [address] [place] CASE MANAGEMon 06-06-2021 CASE MANAGEM Normal [facility] CBC panel Auto (Bld)on 06-06 Erythrocyte distribution width (RBC) [Ratio] 15.8 % High 11.5-15.0 [facility] Comment on above: Order Comment: Speci men Type: BLOOD SPECIMEN Performed By: #### 5 8410-2 ####[facility] LABORATORYCLIA [id number] [address] Hematocrit (Bld) [Volume fraction] 39.5 % Normal 39.0-51.0 [facility] Comment on above: Order Comment: Speci men Type: BLOOD SPECIMEN Performed By: #### 5 8410-2 ####[facility] LABORATORYCLIA [id number] [address] [place] Hemoglobin (Bld) [Mass/Vol] 12.2 g/dL Low 13.0-17.0 [facility] Comment on above: Order Comment: Speci men Type: BLOOD SPECIMEN Performed By: #### 5 8410-2 ####[facility] LABORATORYCLIA [id number] [address] MCH (RBC) [Entitic mass] 27.8 pg Normal 26.0-34.0 [facility] Comment on above: Order Comment: Speci men Type: BLOOD SPECIMEN Performed By: #### 5 8410-2 ####[facility] LABORATORYCLIA [id number] [address] MCHC (RBC) [Mass/Vol] 30.9 g/dL Normal 30.5-36.0 [facility] Comment on above: Order Comment: Speci men Type: BLOOD SPECIMEN Performed By: #### 5 8410-2 ####[facility] LABORATORYCLIA [id number] [address] MCV (RBC) [Entitic vol] 90.0 fL Normal 80.0-100.0 [facility] Comment on above: Order Comment: Speci men Type: BLOOD SPECIMEN Performed By: #### 5 8410-2 ####[facility] LABORATORYCLIA [id number] [address] Nucleated RBC (Bld) [#/Vol] 10*3/uL Normal <0.01 [facility] Comment on above: Order Comment: Speci men Type: BLOOD SPECIMEN Performed By: #### 5 8410-2 ####[facility] LABORATORYCLIA [id number] [address] Platelet mean volume (Bld) [Entitic vol] 10.4 fL Normal 9.0-12.7 [facility] Comment on above: Order Comment: Speci men Type: BLOOD SPECIMEN Performed By: #### 5 8410-2 ####[facility] LABORATORYCLIA [id number] [address] Platelets (Bld) [#/Vol] 236 10*3/uL Normal 150-400 [facility] Comment on above: Order Comment: Speci men Type: BLOOD SPECIMEN Performed By: #### 5 8410-2 ####[facility] LABORATORYCLIA [id number] [address] [place] RBC (Bld) [#/Vol] 4.39 10*6/uL Normal 4.20-6.00 [facility] Comment on above: Order Comment: Speci men Type: BLOOD SPECIMEN Performed By: #### 5 8410-2 ####[facility] LABORATORYCLIA [id number] [address] [place] WBC (Bld) [#/Vol] 9.74 10*3/uL Normal 3.70-11.00 [facility] Comment on above: Order Comment: Speci men Type: BLOOD SPECIMEN Performed By: #### 5 8410-2 ####[facility] LABORATORYCLIA [id number] [address] CONSULT PROGon 06-06-2021 CONSULT PROG Normal [facility] CONSULT PROG Normal [facility] Magnesium SerPl-mCncon 06-06 Magnesium [Mass/Vol] 2.5 mg/dL High 1.7-2.3 [facility] Comment on above: Order Comment: Speci men Type: BLOOD SPECIMEN Performed By: #### 2 4321-2, 69772-1, 2777-1 ####[facility] LABORATORYCLIA [id number] [address] PT panel Coag (PPP)on 2021 INR Coag (PPP) [Relative time] 1.0 {INR} Normal 0.9-1.3 [facility] Comment on above: Order Comment: Speci men Type: BLOOD SPECIMEN Result Comment: Yris min K Antagonist (VKA) Therapeutic Range: INR 2 to 3 (Target INR of 2.5)Note: For patients treated with VKA drugs, such as warfarin, the [place] [employer] 2012 Guideline recommends a therapeutic INR range of 2 to 3 (target INR of 2.5). This recommendation includes high-risk patients with antiphospholipid syndrome with previous arterial or venous thromboembolism, current-generation mechanical or bioprosthetic aortic heart valve replacement.Note: Patients with mechanical aortic valve replacement and additional risk factors for thromboembolic events (atrial fibrillation, previous thromboembolism, LV dysfunction, hypercoagulable conditions) or an older generation mechanical AVR (i.e., ball in-Cage) or any mechanical MVR should have a INR therapeutic range of 2.5 to 3.5 (target INR of 3).Jeffy GH, et al. Chest 2012, 141:7S-47SNishimura RA, et al. [facility] 2017, 70: 252-289 Performed By: #### 3 4528-0, 41569-7 ####[facility] LABORATORYCLIA [id number] [address] PT Coag (PPP) [Time] 11.4 s Normal 9.7-13.0 [facility] Comment on above: Order Comment: Speci men Type: BLOOD SPECIMEN Performed By: #### 3 4528-0, 17079-4 ####[facility] LABORATORYCLIA [id number] [address] [place] Phosphate SerPl-mCncon 06-06 Phosphate [Mass/Vol] 2.3 mg/dL Low 2.7-4.8 [facility] Comment on above: Order Comment: Speci men Type: BLOOD SPECIMEN Performed By: #### 2 4321-2, 57258-6, 2777-1 ####[facility] LABORATORYCLIA [id number] [address] THROMBOGRAPH HEPARINASE PANE Kiel 06-06-2021 Clot angle after addition of heparinase TEG (Bld) [Angle] 70.2 degrees Normal 47.0-74.0 [facility] Comment on above: Order Comment: Speci men Type: BLOOD SPECIMEN Performed By: #### T EGHPP ####[facility] LABORATORYCLIA [id number] [address] Clot Lysis 30 Min post maximum clot amplitude TEG (Bld) [Length fraction] 0.0 % Normal 0.0-8.0 [facility] Comment on above: Order Comment: Speci men Type: BLOOD SPECIMEN Performed By: #### T EGHPP ####[facility] LABORATORYCLIA [id number] [address] Clotting time after addition of heparinase TEG (Bld) 5.7 minutes Normal 4.0-10.0 [facility] Comment on above: Order Comment: Speci men Type: BLOOD SPECIMEN Performed By: #### T EGHPP ####[facility] LABORATORYCLIA [id number] [address] Coagulation index TEG Qn (Bld) 1.2 Normal -4.6-3.2 [facility] Comment on above: Order Comment: Speci men Type: BLOOD SPECIMEN Result Comment: The Coagulation Index, a secondary parameter, is labeled by the burnishing machine operator as for research use only and is used per the burnishing machine operator's instructions. Its performance characteristics were determined by [facility] [place] in a manner consistent with CLIA requirements. This test has not been cleared by the U.S. Food and Drug Administration. Performed By: #### T EGHPP ####[facility] LABORATORYCLIA [id number] [address] Maximum clot firmness after addition of heparinase TEG (Bld) [Length] 64.0 mm Normal 51.0-75.0 [facility] Comment on above: Order Comment: Speci men Type: BLOOD SPECIMEN Performed By: #### T EGHPP ####[facility] LABORATORYCLIA [id number] [address] [place] Vancomycin random [Mass/Vol] on 06-06-2021 Vancomycin [Mass/Vol] 17.4 ug/mL Normal 10.0-20.0 [facility] Comment on above: Order Comment: Speci men Type: BLOOD SPECIMEN Result Comment: Refe rence ranges and high/low indicator flags are provided as general guidelines only. The treating physician must determine appropriate target levels/dosing based on the specific clinical situation. Performed By: #### 4 091-5 ####[facility] LABORATORYCLIA [id number] [address] Vancomycin [Mass/Vol] 13.5 ug/mL Normal 10.0-20.0 [facility] Comment on above: Order Comment: Speci men Type: BLOOD SPECIMEN Result Comment: Refe rence ranges and high/low indicator flags are provided as general guidelines only. The treating physician must determine appropriate target levels/dosing based on the specific clinical situation. Performed By: #### 4 091-5 ####[facility] LABORATORYCLIA [id number] [address] aPTT PPPon 06-06-2021 aPTT Coag (PPP) [Time] 27.8 s Normal 23.0-32.4 [facility] Comment on above: Order Comment: Speci men Type: BLOOD SPECIMEN Performed By: #### 3 4528-0, 25200-7 ####[facility] LABORATORYCLIA [id number] [address] Basic metabolic 2000 panelon 06-05-2021 Anion gap [Moles/Vol] 11 mmol/L Normal 9-18 [facility] Comment on above: Order Comment: Speci men Type: BLOOD SPECIMEN Performed By: #### 1 9123-9, 63821-4, 2776-05 ####[facility] LABORATORYCLIA [id number] [address] [place] Calcium [Mass/Vol] 8.6 mg/dL Normal 8.5-10.2 [facility] Comment on above: Order Comment: Speci men Type: BLOOD SPECIMEN Performed By: #### 1 9123-9, 11629-0, 2776- ####[facility]ORATORYCLIA [id number] [address] [place] Chloride [Moles/Vol] 108 mmol/L High 97-105 [facility] Comment on above: Order Comment: Speci men Type: BLOOD SPECIMEN Performed By: #### 1 9123-9, 88803-8, 2776- ####[facility] LABORATORYCLIA [id number] [place], [place] [address] [place] [address] [place] CO2 [Moles/Vol] 25 mmol/L Normal 22-30 [facility] Comment on above: Order Comment: Speci men Type: BLOOD SPECIMEN Performed By: #### 1 9123-9, 38701-5, 2776-05 ####[facility] LABORATORYCLIA [id number] [address] [place] Creatinine [Mass/Vol] 0.77 mg/dL Normal 0.73-1.22 [facility] Comment on above: Order Comment: Speci men Type: BLOOD SPECIMEN Performed By: #### 1 9123-9, 23200-4, 2776-05 ####[facility] LABORATORYCLIA [id number] [address] [place] GFR/1.73 sq M.predicted MDRD (S/P/Bld) [Vol rate/Area] mL/min/{1.73_m2} Normal [facility] Comment on above: Order Comment: Speci men Type: BLOOD SPECIMEN Result Comment: >60e GFR (Estimated GFR) Units of measure: mL/min/1.73 meters squaredeGFR is derived from the reexpressed MDRD Study equation using the following parameters: serum creatinine, age, gender and race. The creatinine assay has been calibrated to be traceable to IDMS. An eGFR <60 mL/min/1.73m2 for >3 months is consistent with chronic kidney disease. Refer to KDOQI guidelines for clinical interpretation. In patients with unstable renal function, e.g. those with acute kidney injury, the eGFR may not accurately reflect actual GFR. Performed By: #### 1 9123-9, 49171-0, 2776-05 ####[facility] LABORATORYCLIA [id number] [address] [place] Glucose [Mass/Vol] 96 mg/dL Normal 74-99 [facility] Comment on above: Order Comment: Speci men Type: BLOOD SPECIMEN Result Comment: The [place] Diabetes [employer] (ADA) provides guidance for cutoff values for fasting glucose and random glucose. The ADA defines fasting as no caloric intake for at least 8 hours. Fasting plasma glucose results between 100 to 125 mg/dL indicate increased risk for diabetes (prediabetes).Fasting plasma glucose results greater than or equal to 126 mg/dL meet the criteria for diagnosis of diabetes. In the absence of unequivocal hyperglycemia, results should be confirmed by repeat testing. In a patient with classic symptoms of hyperglycemia or hyperglycemic crisis, random plasma glucose results greater than or equal to 200 mg/dL meet the criteria for diagnosis of diabetes.Reference: Standards of Medical Care in Diabetes 2016, [place] [employer]. Diabetes Care. 2016.39(Suppl 1). Performed By: #### 1 9123-9, 86525-9, 2776- ####[facility] [facility]ATORYCLIA [id number] [address] [place] [facility] Potassium [Moles/Vol] 3.9 mmol/L Normal 3.7-5.1 [facility] Comment on above: Order Comment: Speci men Type: BLOOD SPECIMEN Performed By: #### 1 919, 67797-2, 2776- ####[facility]ATORYCLIA [id number] [address] STATES [facility] Sodium [Moles/Vol] 144 mmol/L Normal 136-144 [facility] Comment on above: Order Comment: Speci men Type: BLOOD SPECIMEN Performed By: #### 1 239, 37119-6, 2776-05 ####[facility]ORATORYCLIA [id number] [address] Urea nitrogen [Mass/Vol] 26 mg/dL High 9-24 [facility] Comment on above: Order Comment: Speci men Type: BLOOD SPECIMEN Performed By: #### 1 9123-9, 74594-5, 2776- ####[facility]ORYCLIA [id number] [address] CBC panel Auto (Bld)on 06-05 Erythrocyte distribution width (RBC) [Ratio] 15.9 % High 11.5-15.0 [facility] Comment on above: Order Comment: Speci men Type: BLOOD SPECIMEN Performed By: #### 5 8410-2 ####[facility]ATORYCLIA [id number] [address] Hematocrit (Bld) [Volume fraction] 39.6 % Normal 39.0-51.0 [facility] Comment on above: Order Comment: Speci men Type: BLOOD SPECIMEN Performed By: #### 5 8410-2 ####[facility]ATORYCLIA [id number] [address] Hemoglobin (Bld) [Mass/Vol] 12.3 g/dL Low 13.0-17.0 [facility] Comment on above: Order Comment: Speci men Type: BLOOD SPECIMEN Performed By: #### 5 8410-2 ####[facility]ORATORYCLIA [id number] [address] MCH (RBC) [Entitic mass] 28.1 pg Normal 26.0-34.0 [facility] Comment on above: Order Comment: Speci men Type: BLOOD SPECIMEN Performed By: #### 5 8410-2 ####[facility]ATORYCLIA [id number] [address] MCHC (RBC) [Mass/Vol] 31.1 g/dL Normal 30.5-36.0 [facility] Comment on above: Order Comment: Speci men Type: BLOOD SPECIMEN Performed By: #### 5 8410-2 ####[facility]ATORYCLIA [id number] [address] MCV (RBC) [Entitic vol] 90.4 fL Normal 80.0-100.0 [facility] Comment on above: Order Comment: Speci men Type: BLOOD SPECIMEN Performed By: #### 5 8410-2 ####[facility]ATORYCLIA [id number] [address] Nucleated RBC (Bld) [#/Vol] 10*3/uL Normal <0.01 [facility] Comment on above: Order Comment: Speci men Type: BLOOD SPECIMEN Performed By: #### 5 8410-2 ####[facility]ATORYCLIA [id number] [address] Platelet mean volume (Bld) [Entitic vol] 10.5 fL Normal 9.0-12.7 [facility] Comment on above: Order Comment: Speci men Type: BLOOD SPECIMEN Performed By: #### 5 8410-2 ####[facility]ATORYCLIA [id number] [address] OF [facility] Platelets (Bld) [#/Vol] 224 10*3/uL Normal 150-400 [facility] Comment on above: Order Comment: Speci men Type: BLOOD SPECIMEN Performed By: #### 5 8410-2 ####[facility]ATORYCLIA [id number] [address] RBC (Bld) [#/Vol] 4.38 10*6/uL Normal 4.20-6.00 [facility] Comment on above: Order Comment: Speci men Type: BLOOD SPECIMEN Performed By: #### 5 8410-2 ####[facility]ATORYCLIA [id number] [address] OF [facility] WBC (Bld) [#/Vol] 9.66 10*3/uL Normal 3.70-11.00 [facility] Comment on above: Order Comment: Speci men Type: BLOOD SPECIMEN Performed By: #### 5 8410-2 ####[facility]ORATORYCLIA [id number] [address] CONSULT PROGon 06-05-2021 CONSULT PROG Normal [facility] Gas and Carbon monoxide pane l (BldV)on 06-05-2021 Base excess Calc (BldV) [Moles/Vol] 1.8 mmol/L Normal 0-2 [facility] Comment on above: Order Comment: Speci men Type: VENOUS BLOOD SPECIMEN Performed By: #### 2 4344-4 ####[facility]ATORYCLIA [id number] [address] Body temperature 100.4 [degF] Normal [facility] Comment on above: Order Comment: Speci men Type: VENOUS BLOOD SPECIMEN Performed By: #### 2 4344-4 ####[facility]ORYCLIA [id number] [address] CALCIUM IONIZED, PH CORRECTED 1.21 mmol/L Normal 1.08-1.30 [facility] Comment on above: Order Comment: Speci men Type: VENOUS BLOOD SPECIMEN Performed By: #### 2 4344-4 ####[facility]ORYCLIA [id number] [address] Calcium.ionized (BldV) [Mass/Vol] 1.19 mmol/L Normal 1.08-1.30 [facility] Comment on above: Order Comment: Speci men Type: VENOUS BLOOD SPECIMEN Performed By: #### 2 4344-4 ####[facility]ATORYCLIA [id number] [address] Carboxyhemoglobin (BldV) [Mass fraction] 1.0 % Normal 0.0-2.0 [facility] Comment on above: Order Comment: Speci men Type: VENOUS BLOOD SPECIMEN Result Comment: Carb oxyhemoglobin Reference Range for Smokers: 2.0-8.0% Performed By: #### 2 4344-4 ####[facility]ORYCLIA [id number] [address] CO2 (BldV) [Partial pressure] 41 mm[Hg] Low 42-55 [facility] Comment on above: Order Comment: Speci men Type: VENOUS BLOOD SPECIMEN Performed By: #### 2 4344-4 ####[facility]ORYCLIA [id number] [address] CO2 [Moles/Vol] 23.4 mmol/L Low 25-29 [facility] Comment on above: Order Comment: Speci men Type: VENOUS BLOOD SPECIMEN Performed By: #### 2 4344-4 ####[facility]ORYCLIA [id number] [address] CO2 adjusted to patient's actual temperature (BldV) [Partial pressure] 43 mmHg Normal 42-55 [facility] Comment on above: Order Comment: Speci men Type: VENOUS BLOOD SPECIMEN Performed By: #### 2 4344-4 ####[facility]ORYCLIA [id number] [address] Glucose [Mass/Vol] 101 mg/dL Normal 60-105 [facility] Comment on above: Order Comment: Speci men Type: VENOUS BLOOD SPECIMEN Performed By: #### 2 4344-4 ####[facility]ORYCLIA [id number] [address] HCO3 (Bld) [Moles/Vol] 26.0 mmol/L Normal 24-28 [facility] Comment on above: Order Comment: Speci men Type: VENOUS BLOOD SPECIMEN Performed By: #### 2 4344-4 ####[facility]ORYCLIA [id number] [address] OF [facility] Hematocrit (Bld) [Volume fraction] 38.4 % Low 39.0-51.0 [facility] Comment on above: Order Comment: Speci men Type: VENOUS BLOOD SPECIMEN Performed By: #### 2 4344-4 ####[facility]ORYCLIA [id number] [address] Hemoglobin (Bld) [Mass/Vol] 12.5 g/dL Low 13.0-17.0 [facility] Comment on above: Order Comment: Speci men Type: VENOUS BLOOD SPECIMEN Performed By: #### 2 4344-4 ####[facility]ORYCLIA [id number] [address] Methemoglobin (Bld) [Mass fraction] % Normal 0.0-1.5 [facility] Comment on above: Order Comment: Speci men Type: VENOUS BLOOD SPECIMEN Performed By: #### 2 4344-4 ####[facility]ORYCLIA [id number] [address] [place] O2 THERAPY Ventilator Normal [facility] Comment on above: Order Comment: Speci men Type: VENOUS BLOOD SPECIMEN Performed By: #### 2 4344-4 ####[facility]ATORYCLIA [id number] [place], [place] [address] [place] [address] OF [facility] Oxygen (BldV) [Partial pressure] 44 mm[Hg] Normal 35-45 [facility] Comment on above: Order Comment: Speci men Type: VENOUS BLOOD SPECIMEN Performed By: #### 2 4344-4 ####[facility]ORYCLIA [id number] [place], [place] [address] [place] [address] Oxygen adjusted to patient's actual temperature (BldV) [Partial pressure] 46.8 mmHg High 35-45 [facility] Comment on above: Order Comment: Speci men Type: VENOUS BLOOD SPECIMEN Performed By: #### 2 4344-4 ####[facility]ORYCLIA [id number] [place], [place] [address] [place] [address] Oxygen saturation in Blood 76.5 % Normal 60-85 [facility] Comment on above: Order Comment: Speci men Type: VENOUS BLOOD SPECIMEN Performed By: #### 2 4344-4 ####[facility]ORYCLIA [id number] [place], [place] [address] [place] [address] [place] Oxyhemoglobin (BldV) [Mass fraction] 75 % Normal 60-85 [facility] Comment on above: Order Comment: Speci men Type: VENOUS BLOOD SPECIMEN Performed By: #### 2 4344-4 ####[facility]ORYCLIA [id number] [place], [place] [address] [place] [address] [place] pH (BldV) 7.42 [pH] Normal 7.32-7.42 [facility] Comment on above: Order Comment: Speci men Type: VENOUS BLOOD SPECIMEN Performed By: #### 2 4344-4 ####[facility]ORYCLIA [id number] [place], [place] [address] [place] [address] pH adjusted to patient's actual temperature (BldV) 7.40 Normal 7.32-7.42 [facility] Comment on above: Order Comment: Speci men Type: VENOUS BLOOD SPECIMEN Performed By: #### 2 4344-4 ####[facility]ATORYCLIA [id number] [address] OF [facility] Potassium [Moles/Vol] 3.7 mmol/L Normal 3.5-5.0 [facility] Comment on above: Order Comment: Speci men Type: VENOUS BLOOD SPECIMEN Performed By: #### 2 4344-4 ####[facility]ORYCLIA [id number] [address] [place] [facility] Sodium [Moles/Vol] 141 mmol/L Normal 136-144 [facility] Comment on above: Order Comment: Speci men Type: VENOUS BLOOD SPECIMEN Performed By: #### 2 4344-4 ####[facility]ATORYCLIA [id number] [address] [place] Magnesium SerPl-mCncon 06-05 Magnesium [Mass/Vol] 2.3 mg/dL Normal 1.7-2.3 [facility] Comment on above: Order Comment: Speci men Type: BLOOD SPECIMEN Performed By: #### 1 9123-9, 92307-4, 2777-1 ####[facility]ATORYCLIA [id number] [address] [place] Phosphate SerPl-mCncon 06-05 Phosphate [Mass/Vol] 2.9 mg/dL Normal 2.7-4.8 [facility] Comment on above: Order Comment: Speci men Type: BLOOD SPECIMEN Performed By: #### 1 9123-9, 61948-2, 2777-1 ####[facility]ORATORYCLIA [id number] [place] [address] [place] Vancomycin random [Mass/Vol] on 06-05-2021 Vancomycin [Mass/Vol] 23.2 ug/mL High 10.0-20.0 [facility] Comment on above: Order Comment: Speci men Type: BLOOD SPECIMEN Result Comment: Refe rence ranges and high/low indicator flags are provided as general guidelines only. The treating physician must determine appropriate target levels/dosing based on the specific clinical situation. Performed By: #### 4 091-5 ####[facility]ORATORYCLIA [id number] [place] [address] [place] (1,3)-F-W-NNCYLSqv 2 (1,3) B-D GLUCAN <31 Normal <60 [facility] Comment on above: Order Comment: Speci men Type: BLOOD SPECIMEN Performed By: #### B DGLUC ####[facility] LABCLIA [id number] [place] [address] [place] (1,3) B-D GLUCAN, QUAL Negative Normal NEGAT [facility] Comment on above: Order Comment: Speci men Type: BLOOD SPECIMEN Result Comment: Cert ain fungi, such as the genus Cryptococcus which produces very low levels of (1,3)-uicp-S-vxyfno, may not result in serum (1,3)-xoba-F-uytgho sufficiently elevated so as to be detected by the assay. Infections with fungi of the order Mucorales such as Absidia, Mucor and Rhizopus which are not known to produce (1,3)-gszf-K-vfhbop, are also observed to yield low serum (1,3)-uzsz-O-wvhrkw titers.In addition, the yeast phase of Blastomyces dermatitidis produces little (1,3)-ahcm-Z-truaji and may not be detected by the assay. Performed By: #### B DGLUC ####[facility] LABCLIA [id number] [place] [id number] [place] ALLIED HEALTHon 06-04-2021 ALLIED HEALTH Normal [facility] ALLIED HEALTH Normal [facility] ARTERIAL BLOOD GASESon 06-04 Base excess Calc (Bld) [Moles/Vol] 3 mmol/L High 0-2 [facility] Comment on above: Order Comment: Speci men Type: ARTERIAL BLOOD SPECIMEN Performed By: #### A LLBG ####[facility]ORATORYCLIA [id number] [place] [address] [place] Body temperature 98.06 [degF] Normal [facility] Comment on above: Order Comment: Speci men Type: ARTERIAL BLOOD SPECIMEN Performed By: #### A LLBG ####[facility]ATORYCLIA [id number] [address] CALCIUM IONIZED, PH CORRECTED 1.19 mmol/L Normal 1.08-1.30 [facility] Comment on above: Order Comment: Speci men Type: ARTERIAL BLOOD SPECIMEN Performed By: #### A LLBG ####[facility]ORYCLIA [id number] [address] Calcium.ionized (BldV) [Mass/Vol] 1.14 mmol/L Normal 1.08-1.30 [facility] Comment on above: Order Comment: Speci men Type: ARTERIAL BLOOD SPECIMEN Performed By: #### A LLBG ####[facility]ATORYCLIA [id number] [address] Carboxyhemoglobin (BldA) [Mass fraction] 1.2 % Normal 0.0-2.0 [facility] Comment on above: Order Comment: Speci men Type: ARTERIAL BLOOD SPECIMEN Result Comment: Carb oxyhemoglobin Reference Range for Smokers: 2.0-8.0% Performed By: #### A LLBG ####[facility]ATORYCLIA [id number] [address] CO2 (Bld) [Partial pressure] 35 mm Hg Low 36-46 [facility] Comment on above: Order Comment: Speci men Type: ARTERIAL BLOOD SPECIMEN Performed By: #### A LLBG ####[facility]ORYCLIA [id number] [address] CO2 [Moles/Vol] 23.2 mmol/L Normal 22-28 [facility] Comment on above: Order Comment: Speci men Type: ARTERIAL BLOOD SPECIMEN Performed By: #### A LLBG ####[facility]ORYCLIA [id number] [address] CO2 adjusted to patient's actual temperature (Bld) [Partial pressure] 34 mmHg Low 36-46 [facility] Comment on above: Order Comment: Speci men Type: ARTERIAL BLOOD SPECIMEN Performed By: #### A LLBG ####[facility]ORYCLIA [id number] [address] Glucose [Mass/Vol] 115 mg/dL High 60-105 [facility] Comment on above: Order Comment: Speci men Type: ARTERIAL BLOOD SPECIMEN Performed By: #### A LLBG ####[facility]ORYCLIA [id number] [address] HCO3 (Bld) [Moles/Vol] 26 mmol/L Normal 22-26 [facility] Comment on above: Order Comment: Speci men Type: ARTERIAL BLOOD SPECIMEN Performed By: #### A LLBG ####[facility]ORYCLIA [id number] [address] Hematocrit (Bld) [Volume fraction] 35.3 % Low 39.0-51.0 [facility] Comment on above: Order Comment: Speci men Type: ARTERIAL BLOOD SPECIMEN Performed By: #### A LLBG ####[facility]ORYCLIA [id number] [address] OF [facility] Hemoglobin (Bld) [Mass/Vol] 11.5 g/dL Low 13.0-17.0 [facility] Comment on above: Order Comment: Speci men Type: ARTERIAL BLOOD SPECIMEN Performed By: #### A LLBG ####[facility]ORYCLIA [id number] [address] Methemoglobin (Bld) [Mass fraction] % Normal 0.0-1.5 [facility] Comment on above: Order Comment: Speci men Type: ARTERIAL BLOOD SPECIMEN Performed By: #### A LLBG ####[facility]ORYCLIA [id number] [address] O2 THERAPY Ventilator Normal [facility] Comment on above: Order Comment: Speci men Type: ARTERIAL BLOOD SPECIMEN Performed By: #### A LLBG ####[facility]ORYCLIA [id number] [place], [place] [address] [place] [address] Oxygen (Bld) [Partial pressure] 66 mm Hg Low 85-95 [facility] Comment on above: Order Comment: Speci men Type: ARTERIAL BLOOD SPECIMEN Performed By: #### A LLBG ####[facility]ORYCLIA [id number] [address] Oxygen adjusted to patient's actual temperature (Bld) [Partial pressure] 64.3 mmHg Low 85-95 [facility] Comment on above: Order Comment: Speci men Type: ARTERIAL BLOOD SPECIMEN Performed By: #### A LLBG ####[facility]ORYCLIA [id number] [address] OXYGEN SATURATION, ARTERIAL 95 % Normal 95-98 [facility] Comment on above: Order Comment: Speci men Type: ARTERIAL BLOOD SPECIMEN Performed By: #### A LLBG ####[facility]ORYCLIA [id number] [address] Oxyhemoglobin (BldA) [Mass fraction] 93 % Low 95-98 [facility] Comment on above: Order Comment: Speci men Type: ARTERIAL BLOOD SPECIMEN Performed By: #### A LLBG ####[facility]ORYCLIA [id number] [address] [place] pH (Bld) 7.49 [pH] High 7.35-7.45 [facility] Comment on above: Order Comment: Speci men Type: ARTERIAL BLOOD SPECIMEN Performed By: #### A LLBG ####[facility]ORYCLIA [id number] [address] pH adjusted to patient's actual temperature (Bld) 7.49 High 7.35-7.45 [facility] Comment on above: Order Comment: Speci men Type: ARTERIAL BLOOD SPECIMEN Performed By: #### A LLBG ####[facility]ORYCLIA [id number] [address] [place] Potassium [Moles/Vol] 2.8 mmol/L Low 3.5-5.0 [facility] Comment on above: Order Comment: Speci men Type: ARTERIAL BLOOD SPECIMEN Performed By: #### A LLBG ####[facility]ORYCLIA [id number] [address] Bas Metab 2000 Pnl SerPlon 0 06-04-2021 Sodium [Moles/Vol] 143 mmol/L Normal 136-144 [facility] Comment on above: Order Comment: Speci men Type: BLOOD SPECIMEN Performed By: #### 2 777-1, , ####[facility]ORYCLIA [id number] [address] Order Comment: Speci men Type: ARTERIAL BLOOD SPECIMEN Performed By: #### A LLBG ####[facility]ATORYCLIA [id number] [address] Basic metabolic 2000 panelon 06-04-2021 Anion gap [Moles/Vol] 11 mmol/L Normal 9-18 [facility] Comment on above: Order Comment: Speci men Type: BLOOD SPECIMEN Performed By: #### 2 777-1, , ####[facility]ORYCLIA [id number] [address] [place] [facility] Calcium [Mass/Vol] 8.5 mg/dL Normal 8.5-10.2 [facility] Comment on above: Order Comment: Speci men Type: BLOOD SPECIMEN Performed By: #### 2 777-1, , 41120-7 ####[facility]ORYCLIA [id number] [address] Chloride [Moles/Vol] 107 mmol/L High 97-105 [facility] Comment on above: Order Comment: Speci men Type: BLOOD SPECIMEN Performed By: #### 2 777-1, , 35571-6 ####[facility]ATORYCLIA [id number] [place] [address] [place] [address] [place] [facility] CO2 [Moles/Vol] 25 mmol/L Normal 22-30 [facility] Comment on above: Order Comment: Speci men Type: BLOOD SPECIMEN Performed By: #### 2 777-1, , ####[facility]ATORYCLIA [id number] [address] [place] Creatinine [Mass/Vol] 0.77 mg/dL Normal 0.73-1.22 [facility] Comment on above: Order Comment: Speci men Type: BLOOD SPECIMEN Performed By: #### 2 777-1, , ####[facility]ATORYCLIA [id number] [address] STATES [facility] GFR/1.73 sq M.predicted MDRD (S/P/Bld) [Vol rate/Area] mL/min/{1.73_m2} Normal [facility] Comment on above: Order Comment: Speci men Type: BLOOD SPECIMEN Result Comment: >60e GFR (Estimated GFR) Units of measure: mL/min/1.73 meters squaredeGFR is derived from the reexpressed MDRD Study equation using the following parameters: serum creatinine, age, gender and race. The creatinine assay has been calibrated to be traceable to IDMS. An eGFR <60 mL/min/1.73m2 for >3 months is consistent with chronic kidney disease. Refer to KDOQI guidelines for clinical interpretation. In patients with unstable renal function, e.g. those with acute kidney injury, the eGFR may not accurately reflect actual GFR. Performed By: #### 2 777-1, , ####[facility]ATORYCLIA [id number] [address] [place] Glucose [Mass/Vol] 107 mg/dL High 74-99 [facility] Comment on above: Order Comment: Speci men Type: BLOOD SPECIMEN Result Comment: The [place] [employer] (ADA) provides guidance for cutoff values for fasting glucose and random glucose. The ADA defines fasting as no caloric intake for at least 8 hours. Fasting plasma glucose results between 100 to 125 mg/dL indicate increased risk for diabetes (prediabetes).Fasting plasma glucose results greater than or equal to 126 mg/dL meet the criteria for diagnosis of diabetes. In the absence of unequivocal hyperglycemia, results should be confirmed by repeat testing. In a patient with classic symptoms of hyperglycemia or hyperglycemic crisis, random plasma glucose results greater than or equal to 200 mg/dL meet the criteria for diagnosis of diabetes.Reference: Standards of Medical Care in Diabetes 2016, [place] [employer]. Diabetes Care. 2016.39(Suppl 1). Performed By: #### 2 777-1, , ####[facility]ORYCLIA [id number] [address] [place] [facility] Potassium [Moles/Vol] 3.1 mmol/L Low 3.7-5.1 [facility] Comment on above: Order Comment: Speci men Type: BLOOD SPECIMEN Performed By: #### 2 777-1, , ####[facility]ORYCLIA [id number] [address] Urea nitrogen [Mass/Vol] 19 mg/dL Normal 9-24 [facility] Comment on above: Order Comment: Speci men Type: BLOOD SPECIMEN Performed By: #### 2 777-1, , ####[facility]ORYCLIA [id number] [address] CBC panel Auto (Bld)on 06-04 Erythrocyte distribution width (RBC) [Ratio] 15.8 % High 11.5-15.0 [facility] Comment on above: Order Comment: Speci men Type: BLOOD SPECIMEN Performed By: #### 5 8410-2 ####[facility]ORYCLIA [id number] [address] Hematocrit (Bld) [Volume fraction] 36.9 % Low 39.0-51.0 [facility] Comment on above: Order Comment: Speci men Type: BLOOD SPECIMEN Performed By: #### 5 8410-2 ####[facility]ORYCLIA [id number] [address] Hemoglobin (Bld) [Mass/Vol] 11.2 g/dL Low 13.0-17.0 [facility] Comment on above: Order Comment: Speci men Type: BLOOD SPECIMEN Performed By: #### 5 8410-2 ####[facility]ORYCLIA [id number] [address] MCH (RBC) [Entitic mass] 27.3 pg Normal 26.0-34.0 [facility] Comment on above: Order Comment: Speci men Type: BLOOD SPECIMEN Performed By: #### 5 8410-2 ####[facility]ORYCLIA [id number] [address] MCHC (RBC) [Mass/Vol] 30.4 g/dL Low 30.5-36.0 [facility] Comment on above: Order Comment: Speci men Type: BLOOD SPECIMEN Performed By: #### 5 8410-2 ####[facility]ORYCLIA [id number] [address] MCV (RBC) [Entitic vol] 89.8 fL Normal 80.0-100.0 [facility] Comment on above: Order Comment: Speci men Type: BLOOD SPECIMEN Performed By: #### 5 8410-2 ####[facility] LABORATORYCLIA [id number] [address] Nucleated RBC (Bld) [#/Vol] 10*3/uL Normal <0.01 [facility] Comment on above: Order Comment: Speci men Type: BLOOD SPECIMEN Performed By: #### 5 8410-2 ####[facility]ORATORYCLIA [id number] [address] Platelet mean volume (Bld) [Entitic vol] 10.7 fL Normal 9.0-12.7 [facility] Comment on above: Order Comment: Speci men Type: BLOOD SPECIMEN Performed By: #### 5 8410-2 ####[facility]ATORYCLIA [id number] [address] Platelets (Bld) [#/Vol] 174 10*3/uL Normal 150-400 [facility] Comment on above: Order Comment: Speci men Type: BLOOD SPECIMEN Performed By: #### 5 8410-2 ####[facility]ORATORYCLIA [id number] [address] RBC (Bld) [#/Vol] 4.11 10*6/uL Low 4.20-6.00 [facility] Comment on above: Order Comment: Speci men Type: BLOOD SPECIMEN Performed By: #### 5 8410-2 ####[facility]ORATORYCLIA [id number] [address] WBC (Bld) [#/Vol] 8.29 10*3/uL Normal 3.70-11.00 [facility] Comment on above: Order Comment: Speci men Type: BLOOD SPECIMEN Performed By: #### 5 8410-2 ####[facility] LABORATORYCLIA [id number] [address] CONSULT PROGon 06-04-2021 CONSULT PROG Normal [facility] CT BRAIN WO IVCONon 06-04-[address] BRAIN WO IVCON Normal [facility] CT CHEST W IVCON PEon 2021 CT CHEST W IVCON PE Normal [facility] Magnesium SerPl-mCncon 06-04 Magnesium [Mass/Vol] 2.2 mg/dL Normal 1.7-2.3 [facility] Comment on above: Order Comment: Speci men Type: BLOOD SPECIMEN Performed By: #### 2 777-1, 10777-5, 64778-5 ####[facility]ORATORYCLIA [id number] [address] NT-proBNP SerPl-mCncon 06-04 Natriuretic peptide.B prohormone N-Terminal [Mass/Vol] 229 pg/mL High <125 [facility] Comment on above: Order Comment: Speci men Type: BLOOD SPECIMEN Performed By: #### 3 3762-6, 4091-5 ####[facility] LABORATORYCLIA [id number] [place] [address] [place] Phosphate SerPl-mCncon 06-04 Phosphate [Mass/Vol] 2.0 mg/dL Low 2.7-4.8 [facility] Comment on above: Order Comment: Speci men Type: BLOOD SPECIMEN Performed By: #### 2 777-1, 55246-8, 43894-8 ####[facility]ORATORYCLIA [id number] [address] [place] Vancomycin random [Mass/Vol] on 06-04-2021 Vancomycin [Mass/Vol] 35.2 ug/mL High 10.0-20.0 [facility] Comment on above: Order Comment: Speci men Type: BLOOD SPECIMEN Result Comment: Refe rence ranges and high/low indicator flags are provided as general guidelines only. The treating physician must determine appropriate target levels/dosing based on the specific clinical situation. Performed By: #### 3 3762-6, 4091-5 ####[facility]ORATORYCLIA [id number] [address] [place] XR ABDOMEN 1V SUPINEon 06-04 XR ABDOMEN 1V SUPINE Normal [facility] ALLIED HEALTHon 06-03-2021 ALLIED HEALTH Normal [facility] ARTERIAL BLOOD GASESon 06-03 Base excess Calc (Bld) [Moles/Vol] 5 mmol/L High 0-2 [facility] Comment on above: Order Comment: Speci men Type: ARTERIAL BLOOD SPECIMEN Performed By: #### A LLBG ####[facility] LABORATORYCLIA [id number] [address] STATES [place] [facility] Body temperature 99.5 [degF] Normal [facility] Comment on above: Order Comment: Speci men Type: ARTERIAL BLOOD SPECIMEN Performed By: #### A LLBG ####[facility]ORATORYCLIA [id number] [address] [place] CALCIUM IONIZED, PH CORRECTED 1.18 mmol/L Normal 1.08-1.30 [facility] Comment on above: Order Comment: Speci men Type: ARTERIAL BLOOD SPECIMEN Performed By: #### A LLBG ####[facility]ATORYCLIA [id number] [address] Calcium.ionized (BldV) [Mass/Vol] 1.16 mmol/L Normal 1.08-1.30 [facility] Comment on above: Order Comment: Speci men Type: ARTERIAL BLOOD SPECIMEN Performed By: #### A LLBG ####[facility]ATORYCLIA [id number] [address] Carboxyhemoglobin (BldA) [Mass fraction] 1.2 % Normal 0.0-2.0 [facility] Comment on above: Order Comment: Speci men Type: ARTERIAL BLOOD SPECIMEN Result Comment: Carb oxyhemoglobin Reference Range for Smokers: 2.0-8.0% Performed By: #### A LLBG ####[facility]ORATORYCLIA [id number] [address] CO2 (Bld) [Partial pressure] 45 mm Hg Normal 36-46 [facility] Comment on above: Order Comment: Speci men Type: ARTERIAL BLOOD SPECIMEN Performed By: #### A LLBG ####[facility]ORATORYCLIA [id number] [address] CO2 [Moles/Vol] 26.9 mmol/L Normal 22-28 [facility] Comment on above: Order Comment: Speci men Type: ARTERIAL BLOOD SPECIMEN Performed By: #### A LLBG ####[facility]ORATORYCLIA [id number] [address] [place] CO2 adjusted to patient's actual temperature (Bld) [Partial pressure] 47 mmHg High 36-46 [facility] Comment on above: Order Comment: Speci men Type: ARTERIAL BLOOD SPECIMEN Performed By: #### A LLBG ####[facility]ORYCLIA [id number] [address] [place] Glucose [Mass/Vol] 141 mg/dL High 60-105 [facility] Comment on above: Order Comment: Speci men Type: ARTERIAL BLOOD SPECIMEN Performed By: #### A LLBG ####[facility]ORATORYCLIA [id number] [address] [place] HCO3 (Bld) [Moles/Vol] 30 mmol/L High 22-26 [facility] Comment on above: Order Comment: Speci men Type: ARTERIAL BLOOD SPECIMEN Performed By: #### A LLBG ####[facility]ATORYCLIA [id number] [address] [place] Hematocrit (Bld) [Volume fraction] 35.8 % Low 39.0-51.0 [facility] Comment on above: Order Comment: Speci men Type: ARTERIAL BLOOD SPECIMEN Performed By: #### A LLBG ####[facility]ORATORYCLIA [id number] [address] [place] [facility] Hemoglobin (Bld) [Mass/Vol] 11.6 g/dL Low 13.0-17.0 [facility] Comment on above: Order Comment: Speci men Type: ARTERIAL BLOOD SPECIMEN Performed By: #### A LLBG ####[facility]ORATORYCLIA [id number] [address] Methemoglobin (Bld) [Mass fraction] % Normal 0.0-1.5 [facility] Comment on above: Order Comment: Speci men Type: ARTERIAL BLOOD SPECIMEN Performed By: #### A LLBG ####[facility]ATORYCLIA [id number] [address] [place] O2 THERAPY Ventilator Normal [facility] Comment on above: Order Comment: Speci men Type: ARTERIAL BLOOD SPECIMEN Performed By: #### A LLBG ####[facility]ORYCLIA [id number] [address] Oxygen (Bld) [Partial pressure] 69 mm Hg Low 85-95 [facility] Comment on above: Order Comment: Speci men Type: ARTERIAL BLOOD SPECIMEN Performed By: #### A LLBG ####[facility]ORYCLIA [id number] [address] Oxygen adjusted to patient's actual temperature (Bld) [Partial pressure] 70.8 mmHg Low 85-95 [facility] Comment on above: Order Comment: Speci men Type: ARTERIAL BLOOD SPECIMEN Performed By: #### A LLBG ####[facility]ORYCLIA [id number] [address] OXYGEN SATURATION, ARTERIAL 94 % Low 95-98 [facility] Comment on above: Order Comment: Speci men Type: ARTERIAL BLOOD SPECIMEN Performed By: #### A LLBG ####[facility]ATORYCLIA [id number] [address] Oxyhemoglobin (BldA) [Mass fraction] 93 % Low 95-98 [facility] Comment on above: Order Comment: Speci men Type: ARTERIAL BLOOD SPECIMEN Performed By: #### A LLBG ####[facility]ORYCLIA [id number] [address] [place] [facility] pH (Bld) 7.43 [pH] Normal 7.35-7.45 [facility] Comment on above: Order Comment: Speci men Type: ARTERIAL BLOOD SPECIMEN Performed By: #### A LLBG ####[facility]ATORYCLIA [id number] [address] pH adjusted to patient's actual temperature (Bld) 7.43 Normal 7.35-7.45 [facility] Comment on above: Order Comment: Speci men Type: ARTERIAL BLOOD SPECIMEN Performed By: #### A LLBG ####[facility]ATORYCLIA [id number] [address] Potassium [Moles/Vol] 3.1 mmol/L Low 3.5-5.0 [facility] Comment on above: Order Comment: Speci men Type: ARTERIAL BLOOD SPECIMEN Performed By: #### A LLBG ####[facility]ATORYCLIA [id number] [place] [address] [place] Sodium [Moles/Vol] 145 mmol/L High 136-144 [facility] Comment on above: Order Comment: Speci men Type: ARTERIAL BLOOD SPECIMEN Performed By: #### A LLBG ####[facility]ORATORYCLIA [id number] [place] [address] [place] ASPERGILLUS GALACTOMANNAN SE RUMon 06-03-2021 Galactomannan Ag IA Ql Negative Normal NEGAT [facility] Comment on above: Order Comment: Speci men Type: BLOOD SPECIMEN Result Comment: Aspe rgillus galactomannan antigen not detected in this sample. A negative result may indicate that the patient's result is below the detectable level of the assay. Negative results do not rule out the diagnosis of Invasive Aspergillosis. Repeat testing is recommended if the result is negative,but the disease is suspected. Performed By: #### A SGALS ####[facility] LABCLIA [id number] [place] [place] [address] [place] Galactomannan Ag IA Qn <0.50 Normal [facility] Comment on above: Order Comment: Speci men Type: BLOOD SPECIMEN Result Comment: Inde x Values are Interpreted as Follows:Negative specimens <0.50Positive specimens >=0.50 Performed By: #### A SGALS ####[facility] LABCLIA [id number] [place] [facility] [address] [address] [place] Basic metabolic 2000 panelon 06-03-2021 Anion gap [Moles/Vol] 8 mmol/L Low 9-18 [facility] Comment on above: Order Comment: Speci men Type: BLOOD SPECIMEN Performed By: #### 1 9123-9, 2777-1, 40580-7 ####[facility]ORATORYCLIA [id number] [address] [place] Calcium [Mass/Vol] 8.0 mg/dL Low 8.5-10.2 [facility] Comment on above: Order Comment: Speci men Type: BLOOD SPECIMEN Performed By: #### 1 9123-9, 2777, 42340-6 ####[facility]ORATORYCLIA [id number] [address] Chloride [Moles/Vol] 110 mmol/L High 97-105 [facility] Comment on above: Order Comment: Speci men Type: BLOOD SPECIMEN Performed By: #### 1 9123-9, 27711-04, 14777-2 ####[facility]ORATORYCLIA [id number] [address] CO2 [Moles/Vol] 28 mmol/L Normal 22-30 [facility] Comment on above: Order Comment: Speci men Type: BLOOD SPECIMEN Performed By: #### 1 9123-9, 27711-04, ####[facility]ORATORYCLIA [id number] [address] Creatinine [Mass/Vol] 0.75 mg/dL Normal 0.73-1.22 [facility] Comment on above: Order Comment: Speci men Type: BLOOD SPECIMEN Performed By: #### 1 9123-9, 2776-05, ####[facility]ORATORYCLIA [id number] [address] STATES [facility] GFR/1.73 sq M.predicted MDRD (S/P/Bld) [Vol rate/Area] mL/min/{1.73_m2} Normal [facility] Comment on above: Order Comment: Speci men Type: BLOOD SPECIMEN Result Comment: >60e GFR (Estimated GFR) Units of measure: mL/min/1.73 meters squaredeGFR is derived from the reexpressed MDRD Study equation using the following parameters: serum creatinine, age, gender and race. The creatinine assay has been calibrated to be traceable to IDMS. An eGFR <60 mL/min/1.73m2 for >3 months is consistent with chronic kidney disease. Refer to KDOQI guidelines for clinical interpretation. In patients with unstable renal function, e.g. those with acute kidney injury, the eGFR may not accurately reflect actual GFR. Performed By: #### 1 9123-9, 2776-05, 49876-7 ####[facility]ORATORYCLIA [id number] [place] [address] [place] Glucose [Mass/Vol] 141 mg/dL High 74-99 [facility] Comment on above: Order Comment: Speci men Type: BLOOD SPECIMEN Result Comment: The [place] [employer] Association (ADA) provides guidance for cutoff values for fasting glucose and random glucose. The ADA defines fasting as no caloric intake for at least 8 hours. Fasting plasma glucose results between 100 to 125 mg/dL indicate increased risk for diabetes (prediabetes).Fasting plasma glucose results greater than or equal to 126 mg/dL meet the criteria for diagnosis of diabetes. In the absence of unequivocal hyperglycemia, results should be confirmed by repeat testing. In a patient with classic symptoms of hyperglycemia or hyperglycemic crisis, random plasma glucose results greater than or equal to 200 mg/dL meet the criteria for diagnosis of diabetes.Reference: Standards of Medical Care in Diabetes 2016, [place] [employer]. Diabetes Care. 2016.39(Suppl 1). Performed By: #### 1 9123-9, 27711-04, 81812-4 ####[facility]ORATORYCLIA [id number] [address] [place] Potassium [Moles/Vol] 3.3 mmol/L Low 3.7-5.1 [facility] Comment on above: Order Comment: Speci men Type: BLOOD SPECIMEN Performed By: #### 1 9123-9, 27711-04, 65972-2 ####[facility]ORATORYCLIA [id number] [address] [place] Sodium [Moles/Vol] 146 mmol/L High 136-144 [facility] Comment on above: Order Comment: Speci men Type: BLOOD SPECIMEN Performed By: #### 1 9123-9, 27711-04, 20718-8 ####[facility]ORATORYCLIA [id number] [address] [place] Urea nitrogen [Mass/Vol] 10 mg/dL Normal 9-24 [facility] Comment on above: Order Comment: Speci men Type: BLOOD SPECIMEN Performed By: #### 1 9123-9, 27711-04, 49683-4 ####[facility]ORATORYCLIA [id number] [address] CASE MANAGEMon 06-03-2021 CASE MANAGEM Normal [facility] CBC panel Auto (Bld)on 06-03 Erythrocyte distribution width (RBC) [Ratio] 15.6 % High 11.5-15.0 [facility] Comment on above: Order Comment: Speci men Type: BLOOD SPECIMEN Performed By: #### 5 8410-2 ####[facility]ORATORYCLIA [id number] [address] Hematocrit (Bld) [Volume fraction] 36.9 % Low 39.0-51.0 [facility] Comment on above: Order Comment: Speci men Type: BLOOD SPECIMEN Performed By: #### 5 8410-2 ####[facility]ORATORYCLIA [id number] [address] Hemoglobin (Bld) [Mass/Vol] 11.1 g/dL Low 13.0-17.0 [facility] Comment on above: Order Comment: Speci men Type: BLOOD SPECIMEN Performed By: #### 5 8410-2 ####[facility]ORATORYCLIA [id number] [address] MCH (RBC) [Entitic mass] 27.0 pg Normal 26.0-34.0 [facility] Comment on above: Order Comment: Speci men Type: BLOOD SPECIMEN Performed By: #### 5 8410-2 ####[facility]ORATORYCLIA [id number] [address] MCHC (RBC) [Mass/Vol] 30.1 g/dL Low 30.5-36.0 [facility] Comment on above: Order Comment: Speci men Type: BLOOD SPECIMEN Performed By: #### 5 8410-2 ####[facility]ORATORYCLIA [id number] [address] MCV (RBC) [Entitic vol] 89.8 fL Normal 80.0-100.0 [facility] Comment on above: Order Comment: Speci men Type: BLOOD SPECIMEN Performed By: #### 5 8410-2 ####[facility]ORATORYCLIA [id number] [address] Nucleated RBC (Bld) [#/Vol] 10*3/uL Normal <0.01 [facility] Comment on above: Order Comment: Speci men Type: BLOOD SPECIMEN Performed By: #### 5 8410-2 ####[facility]ORATORYCLIA [id number] [address] Platelet mean volume (Bld) [Entitic vol] 10.5 fL Normal 9.0-12.7 [facility] Comment on above: Order Comment: Speci men Type: BLOOD SPECIMEN Performed By: #### 5 8410-2 ####[facility]ATORYCLIA [id number] [address] Platelets (Bld) [#/Vol] 196 10*3/uL Normal 150-400 [facility] Comment on above: Order Comment: Speci men Type: BLOOD SPECIMEN Performed By: #### 5 8410-2 ####[facility]ATORYCLIA [id number] [address] RBC (Bld) [#/Vol] 4.11 10*6/uL Low 4.20-6.00 [facility] Comment on above: Order Comment: Speci men Type: BLOOD SPECIMEN Performed By: #### 5 8410-2 ####[facility]ATORYCLIA [id number] [address] WBC (Bld) [#/Vol] 8.18 10*3/uL Normal 3.70-11.00 [facility] Comment on above: Order Comment: Speci men Type: BLOOD SPECIMEN Performed By: #### 5 8410-2 ####[facility]ATORYCLIA [id number] [address] [place] [facility] CONSULTon 06-03-2021 CONSULT Normal [facility] CONSULT PROGon 06-03-2021 CONSULT PROG Normal [facility] Gas and Carbon monoxide pane l (BldV)on 06-03-2021 Base excess Calc (BldV) [Moles/Vol] 1.4 mmol/L Normal 0-2 [facility] Comment on above: Order Comment: Speci men Type: VENOUS BLOOD SPECIMEN Performed By: #### 2 4344-4 ####[facility]ORATORYCLIA [id number] [address] Body temperature 98.42 [degF] Normal [facility] Comment on above: Order Comment: Speci men Type: VENOUS BLOOD SPECIMEN Performed By: #### 2 4344-4 ####[facility]ORATORYCLIA [id number] [address] CALCIUM IONIZED, PH CORRECTED 1.09 mmol/L Normal 1.08-1.30 [facility] Comment on above: Order Comment: Speci men Type: VENOUS BLOOD SPECIMEN Performed By: #### 2 4344-4 ####[facility]ORATORYCLIA [id number] [address] STATES [facility] Calcium.ionized (BldV) [Mass/Vol] 1.12 mmol/L Normal 1.08-1.30 [facility] Comment on above: Order Comment: Speci men Type: VENOUS BLOOD SPECIMEN Performed By: #### 2 4344-4 ####[facility]ORATORYCLIA [id number] [address] [place] [facility] Carboxyhemoglobin (BldV) [Mass fraction] 1.7 % Normal 0.0-2.0 [facility] Comment on above: Order Comment: Speci men Type: VENOUS BLOOD SPECIMEN Result Comment: Carb oxyhemoglobin Reference Range for Smokers: 2.0-8.0% Performed By: #### 2 4344-4 ####[facility]ORATORYCLIA [id number] [address] [place] CO2 (BldV) [Partial pressure] 50 mm[Hg] Normal 42-55 [facility] Comment on above: Order Comment: Speci men Type: VENOUS BLOOD SPECIMEN Performed By: #### 2 4344-4 ####[facility]ATORYCLIA [id number] [address] CO2 [Moles/Vol] 24.9 mmol/L Low 25-29 [facility] Comment on above: Order Comment: Speci men Type: VENOUS BLOOD SPECIMEN Performed By: #### 2 4344-4 ####[facility]ORYCLIA [id number] [address] CO2 adjusted to patient's actual temperature (BldV) [Partial pressure] 50 mmHg Normal 42-55 [facility] Comment on above: Order Comment: Speci men Type: VENOUS BLOOD SPECIMEN Performed By: #### 2 4344-4 ####[facility]ATORYCLIA [id number] [address] FIO2 30 % Normal [facility] Comment on above: Order Comment: Speci men Type: VENOUS BLOOD SPECIMEN Performed By: #### 2 4344-4 ####[facility]ORYCLIA [id number] [address] [place] [facility] Glucose [Mass/Vol] 191 mg/dL High 60-105 [facility] Comment on above: Order Comment: Speci men Type: VENOUS BLOOD SPECIMEN Performed By: #### 2 4344-4 ####[facility]ATORYCLIA [id number] [address] [place] HCO3 (Bld) [Moles/Vol] 27.1 mmol/L Normal 24-28 [facility] Comment on above: Order Comment: Speci men Type: VENOUS BLOOD SPECIMEN Performed By: #### 2 4344-4 ####[facility] LABORATORYCLIA [id number] [address] Hematocrit (Bld) [Volume fraction] 36.2 % Low 39.0-51.0 [facility] Comment on above: Order Comment: Speci men Type: VENOUS BLOOD SPECIMEN Performed By: #### 2 4344-4 ####[facility]ATORYCLIA [id number] [address] [place] Hemoglobin (Bld) [Mass/Vol] 11.8 g/dL Low 13.0-17.0 [facility] Comment on above: Order Comment: Speci men Type: VENOUS BLOOD SPECIMEN Performed By: #### 2 4344-4 ####[facility]ATORYCLIA [id number] [address] INHALED TIDAL VOLUME (ML) 530 Normal [facility] Comment on above: Order Comment: Speci men Type: VENOUS BLOOD SPECIMEN Performed By: #### 2 4344-4 ####[facility]ORYCLIA [id number] [address] Methemoglobin (Bld) [Mass fraction] % Normal 0.0-1.5 [facility] Comment on above: Order Comment: Speci men Type: VENOUS BLOOD SPECIMEN Performed By: #### 2 4344-4 ####[facility]ATORYCLIA [id number] [address] O2 THERAPY Ventilator Normal [facility] Comment on above: Order Comment: Speci men Type: VENOUS BLOOD SPECIMEN Performed By: #### 2 4344-4 ####[facility]ORYCLIA [id number] [address] Oxygen (BldV) [Partial pressure] 69 mm[Hg] High 35-45 [facility] Comment on above: Order Comment: Speci men Type: VENOUS BLOOD SPECIMEN Performed By: #### 2 4344-4 ####[facility]ORYCLIA [id number] [address] [place] Oxygen adjusted to patient's actual temperature (BldV) [Partial pressure] 68.8 mmHg High 35-45 [facility] Comment on above: Order Comment: Speci men Type: VENOUS BLOOD SPECIMEN Performed By: #### 2 4344-4 ####[facility]ATORYCLIA [id number] [address] Oxygen saturation in Blood 92.4 % High 60-85 [facility] Comment on above: Order Comment: Speci men Type: VENOUS BLOOD SPECIMEN Performed By: #### 2 4344-4 ####[facility]ATORYCLIA [id number] [place], [place] [address] [place] [address] [place] Oxyhemoglobin (BldV) [Mass fraction] 90 % High 60-85 [facility] Comment on above: Order Comment: Speci men Type: VENOUS BLOOD SPECIMEN Performed By: #### 2 4344-4 ####[facility]ATORYCLIA [id number] [place], [place] [id number] [place] [address] PEEP/CPAP 8 cmH2O Normal [facility] Comment on above: Order Comment: Speci men Type: VENOUS BLOOD SPECIMEN Performed By: #### 2 4344-4 ####[facility]ATORYCLIA [id number] [place], [place] [address] [place] [address] OF [facility] pH (BldV) 7.35 [pH] Normal 7.32-7.42 [facility] Comment on above: Order Comment: Speci men Type: VENOUS BLOOD SPECIMEN Performed By: #### 2 4344-4 ####[facility]ATORYCLIA [id number] [address] pH adjusted to patient's actual temperature (BldV) 7.35 Normal 7.32-7.42 [facility] Comment on above: Order Comment: Speci men Type: VENOUS BLOOD SPECIMEN Performed By: #### 2 4344-4 ####[facility]ORYCLIA [id number] [address] [place] Potassium [Moles/Vol] 3.6 mmol/L Normal 3.5-5.0 [facility] Comment on above: Order Comment: Speci men Type: VENOUS BLOOD SPECIMEN Performed By: #### 2 4344-4 ####[facility]ORYCLIA [id number] [address] SET VENTILATOR RESPIRATORY RATE (BPM) 18 BPM Normal [facility] Comment on above: Order Comment: Speci men Type: VENOUS BLOOD SPECIMEN Performed By: #### 2 4344-4 ####[facility]ORATORYCLIA [id number] [address] Sodium [Moles/Vol] 141 mmol/L Normal 136-144 [facility] Comment on above: Order Comment: Speci men Type: VENOUS BLOOD SPECIMEN Performed By: #### 2 4344-4 ####[facility]ORATORYCLIA [id number] [address] HIV 1+2 Ab IA Qlon 2 HIV 1 and 2 Ab IA.rapid Nom Normal [facility] Comment on above: Order Comment: Speci men Type: BLOOD SPECIMEN Result Comment: Test not indicated. Performed By: #### 3 1201-7, TOXMG ####[facility]ATORYCLIA [id number] [address] HIV 1+2 Ab+HIV1 p24 Ag IA Ql Non-Reactive Normal Nonreactive [facility] Comment on above: Order Comment: Speci men Type: BLOOD SPECIMEN Result Comment: [place] Rev. Code 3701.243(E): This information has been disclosed to you from confidential records protected from disclosure by state law. ???You shall make no further disclosure of this information without the specific, written, and informed release of the individual to whom it pertains or as otherwise permitted by state law. A general authorization for the release of medical or other information is not sufficient for the purpose of the release of HIV test results or diagnoses. Performed By: #### 3 1201-7, TOXMG ####[facility]ORATORYCLIA [id number] [address] HIVINT Normal [facility] Comment on above: Order Comment: Speci men Type: BLOOD SPECIMEN Result Comment: No e vidence of HIV-1 or HIV-2 infection. Should recent infection be suspected, repeat testing may be considered 2-3 weeks after this draw. Performed By: #### 3 1201-7, TOXMG ####[facility]ATORYCLIA [id number] [address] Magnesium SerPl-mCncon 06-03 Magnesium [Mass/Vol] 1.9 mg/dL Normal 1.7-2.3 [facility] Comment on above: Order Comment: Speci men Type: BLOOD SPECIMEN Performed By: #### 1 9123-9, 2777-1, 14927-2 ####[facility]ORATORYCLIA [id number] [place] [address] [place] NUTRITIONon 06-03-2021 NUTRITION Normal [facility] Phosphate SerPl-mCncon 06-03 Phosphate [Mass/Vol] 1.9 mg/dL Low 2.7-4.8 [facility] Comment on above: Order Comment: Speci men Type: BLOOD SPECIMEN Performed By: #### 1 9123-9, 2777-1, 90926-7 ####[facility]ORATORYCLIA [id number] [address] TOXOPLASMOSIS IGM AND IGG AB on 06-03-2021 TOXO IGG QUAL Negative Normal Negative [facility] Comment on above: Order Comment: Speci men Type: BLOOD SPECIMEN Result Comment: No s erological evidence of past exposure to Toxoplasma gondii. Cannot exclude recent infection if the specimen collected within 3-4 weeks after infection.Negative <6.4 IU/mLEquivocal 6.4-9.9 IU/mLPositive >=10.0 IU/mL Performed By: #### 3 1201-7, TOXMG ####[facility]ORATORYCLIA [id number] [address] TOXO IGM QUAL Negative Normal Negative [facility] Comment on above: Order Comment: Speci men Type: BLOOD SPECIMEN Result Comment: No s erological evidence of recent exposure to Toxoplasma gondii.Negative <0.9 IndexEquivocal 0.9-0.99 IndexPositive >=1.0 Index Performed By: #### 3 1201-7, TOXMG ####[facility]ORATORYCLIA [id number] [place] [address] [place] US DVT LOWER BILon 2 US DVT LOWER RAINER Normal [facility] XR CHEST 1V FRONTALon 2021 XR CHEST 1V FRONTAL Normal [facility] ARTERIAL BLOOD GASESon 06-02 Base excess Calc (Bld) [Moles/Vol] 2 mmol/L Normal 0-2 [facility] Comment on above: Order Comment: Speci men Type: ARTERIAL BLOOD SPECIMEN Performed By: #### A LLBG ####[facility]ORATORYCLIA [id number] [address] Body temperature 99.32 [degF] Normal [facility] Comment on above: Order Comment: Speci men Type: ARTERIAL BLOOD SPECIMEN Performed By: #### A LLBG ####[facility]ORATORYCLIA [id number] [address] CALCIUM IONIZED, PH CORRECTED 1.15 mmol/L Normal 1.08-1.30 [facility] Comment on above: Order Comment: Speci men Type: ARTERIAL BLOOD SPECIMEN Performed By: #### A LLBG ####[facility]ORATORYCLIA [id number] [address] [place] Calcium.ionized (BldV) [Mass/Vol] 1.13 mmol/L Normal 1.08-1.30 [facility] Comment on above: Order Comment: Speci men Type: ARTERIAL BLOOD SPECIMEN Performed By: #### A LLBG ####[facility]ORATORYCLIA [id number] [address] [place] Carboxyhemoglobin (BldA) [Mass fraction] 1.4 % Normal 0.0-2.0 [facility] Comment on above: Order Comment: Speci men Type: ARTERIAL BLOOD SPECIMEN Result Comment: Carb oxyhemoglobin Reference Range for Smokers: 2.0-8.0% Performed By: #### A LLBG ####[facility]ORATORYCLIA [id number] [address] CO2 (Bld) [Partial pressure] 39 mm Hg Normal 36-46 [facility] Comment on above: Order Comment: Speci men Type: ARTERIAL BLOOD SPECIMEN Performed By: #### A LLBG ####[facility]ORYCLIA [id number] [address] CO2 [Moles/Vol] 23.4 mmol/L Normal 22-28 [facility] Comment on above: Order Comment: Speci men Type: ARTERIAL BLOOD SPECIMEN Performed By: #### A LLBG ####[facility]ORYCLIA [id number] [address] CO2 adjusted to patient's actual temperature (Bld) [Partial pressure] 40 mmHg Normal 36-46 [facility] Comment on above: Order Comment: Speci men Type: ARTERIAL BLOOD SPECIMEN Performed By: #### A LLBG ####[facility]ORATORYCLIA [id number] [address] Glucose [Mass/Vol] 156 mg/dL High 60-105 [facility] Comment on above: Order Comment: Speci men Type: ARTERIAL BLOOD SPECIMEN Performed By: #### A LLBG ####[facility]ORYCLIA [id number] [address] HCO3 (Bld) [Moles/Vol] 26 mmol/L Normal 22-26 [facility] Comment on above: Order Comment: Speci men Type: ARTERIAL BLOOD SPECIMEN Performed By: #### A LLBG ####[facility]ATORYCLIA [id number] [address] Hematocrit (Bld) [Volume fraction] 33.9 % Low 39.0-51.0 [facility] Comment on above: Order Comment: Speci men Type: ARTERIAL BLOOD SPECIMEN Performed By: #### A LLBG ####[facility]ORYCLIA [id number] [address] Hemoglobin (Bld) [Mass/Vol] 11.0 g/dL Low 13.0-17.0 [facility] Comment on above: Order Comment: Speci men Type: ARTERIAL BLOOD SPECIMEN Performed By: #### A LLBG ####[facility]ORYCLIA [id number] [address] Methemoglobin (Bld) [Mass fraction] % Normal 0.0-1.5 [facility] Comment on above: Order Comment: Speci men Type: ARTERIAL BLOOD SPECIMEN Performed By: #### A LLBG ####[facility]ORYCLIA [id number] [address] O2 THERAPY Ventilator Normal [facility] Comment on above: Order Comment: Speci men Type: ARTERIAL BLOOD SPECIMEN Performed By: #### A LLBG ####[facility]ORYCLIA [id number] [address] Oxygen (Bld) [Partial pressure] 70 mm Hg Low 85-95 [facility] Comment on above: Order Comment: Speci men Type: ARTERIAL BLOOD SPECIMEN Performed By: #### A LLBG ####[facility]ATORYCLIA [id number] [address] Oxygen adjusted to patient's actual temperature (Bld) [Partial pressure] 72.2 mmHg Low 85-95 [facility] Comment on above: Order Comment: Speci men Type: ARTERIAL BLOOD SPECIMEN Performed By: #### A LLBG ####[facility]ORATORYCLIA [id number] [address] OXYGEN SATURATION, ARTERIAL 96 % Normal 95-98 [facility] Comment on above: Order Comment: Speci men Type: ARTERIAL BLOOD SPECIMEN Performed By: #### A LLBG ####[facility]ORYCLIA [id number] [address] Oxyhemoglobin (BldA) [Mass fraction] 94 % Low 95-98 [facility] Comment on above: Order Comment: Speci men Type: ARTERIAL BLOOD SPECIMEN Performed By: #### A LLBG ####[facility]ORYCLIA [id number] [address] pH (Bld) 7.43 [pH] Normal 7.35-7.45 [facility] Comment on above: Order Comment: Speci men Type: ARTERIAL BLOOD SPECIMEN Performed By: #### A LLBG ####[facility]ORYCLIA [id number] [address] pH adjusted to patient's actual temperature (Bld) 7.42 Normal 7.35-7.45 [facility] Comment on above: Order Comment: Speci men Type: ARTERIAL BLOOD SPECIMEN Performed By: #### A LLBG ####[facility]ATORYCLIA [id number] [address] Potassium [Moles/Vol] 2.6 mmol/L Low 3.5-5.0 [facility] Comment on above: Order Comment: Speci men Type: ARTERIAL BLOOD SPECIMEN Performed By: #### A LLBG ####[facility]ATORYCLIA [id number] [address] Sodium [Moles/Vol] 142 mmol/L Normal 136-144 [facility] Comment on above: Order Comment: Speci men Type: ARTERIAL BLOOD SPECIMEN Performed By: #### A LLBG ####[facility]ORATORYCLIA [id number] [address] [place] Ammonia Plas-sCncon 06-02-19 22 Ammonia (P) [Moles/Vol] 20 umol/L Normal 16-60 [facility] Comment on above: Order Comment: Speci men Type: BLOOD SPECIMEN Performed By: #### 1 6362-6 ####[facility]ORATORYCLIA [id number] [address] [place] Bacteria CSF Culton 06-02-19 22 Bacteria identified Cx Nom (CSF) CULTURE, CSF: No growth 14 days GRAM STAIN: No organisms seen Rare Polymorphonuclear leukocytes Gram stain performed on cytospun specimen. Normal [facility] Comment on above: Performed By: #### 6 06-4 ####[facility]ORYCLIA [id number] [address] [place] Basic metabolic 2000 panelon 06-02-2021 Anion gap [Moles/Vol] 10 mmol/L Normal 9-18 [facility] Comment on above: Order Comment: Speci men Type: BLOOD SPECIMEN Performed By: #### 2 4321-2, , 2776-05 ####[facility]ORATORYCLIA [id number] [address] STATES [facility] Calcium [Mass/Vol] 8.1 mg/dL Low 8.5-10.2 [facility] Comment on above: Order Comment: Speci men Type: BLOOD SPECIMEN Performed By: #### 2 4321-2, , 2776-05 ####[facility]ORATORYCLIA [id number] [address] [place] Chloride [Moles/Vol] 108 mmol/L High 97-105 [facility] Comment on above: Order Comment: Speci men Type: BLOOD SPECIMEN Performed By: #### 2 4321-2, , 2776-05 ####[facility]ATORYCLIA [id number] [address] [place] CO2 [Moles/Vol] 24 mmol/L Normal 22-30 [facility] Comment on above: Order Comment: Speci men Type: BLOOD SPECIMEN Performed By: #### 2 4321-2, , 2776-05 ####[facility]ATORYCLIA [id number] [address] [place] Creatinine [Mass/Vol] 0.78 mg/dL Normal 0.73-1.22 [facility] Comment on above: Order Comment: Speci men Type: BLOOD SPECIMEN Performed By: #### 2 4321-2, , 2776-05 ####[facility]ORATORYCLIA [id number] [place] [address] [place] GFR/1.73 sq M.predicted MDRD (S/P/Bld) [Vol rate/Area] mL/min/{1.73_m2} Normal [facility] Comment on above: Order Comment: Speci men Type: BLOOD SPECIMEN Result Comment: >60e GFR (Estimated GFR) Units of measure: mL/min/1.73 meters squaredeGFR is derived from the reexpressed MDRD Study equation using the following parameters: serum creatinine, age, gender and race. The creatinine assay has been calibrated to be traceable to IDPA. An eGFR <60 mL/min/1.73m2 for >3 months is consistent with chronic kidney disease. Refer to KDOQI guidelines for clinical interpretation. In patients with unstable renal function, e.g. those with acute kidney injury, the eGFR may not accurately reflect actual GFR. Performed By: #### 2 4321-2, , 2776-05 ####[facility]ORATORYCLIA [id number] [place] [address] [place] Glucose [Mass/Vol] 162 mg/dL High 74-99 [facility] Comment on above: Order Comment: Speci men Type: BLOOD SPECIMEN Result Comment: The [place] Diabetes Association (ADA) provides guidance for cutoff values for fasting glucose and random glucose. The ADA defines fasting as no caloric intake for at least 8 hours. Fasting plasma glucose results between 100 to 125 mg/dL indicate increased risk for diabetes (prediabetes).Fasting plasma glucose results greater than or equal to 126 mg/dL meet the criteria for diagnosis of diabetes. In the absence of unequivocal hyperglycemia, results should be confirmed by repeat testing. In a patient with classic symptoms of hyperglycemia or hyperglycemic crisis, random plasma glucose results greater than or equal to 200 mg/dL meet the criteria for diagnosis of diabetes.Reference: Standards of Medical Care in Diabetes 2016, [place] [employer]. Diabetes Care. 2016.39(Suppl 1). Performed By: #### 2 4321-2, , 2776-05 ####[facility]ORATORYCLIA [id number] [place] [address] [place] Potassium [Moles/Vol] 2.7 mmol/L Low 3.7-5.1 [facility] Comment on above: Order Comment: Speci men Type: BLOOD SPECIMEN Performed By: #### 2 4321-2, , 2776-05 ####[facility]ATORYCLIA [id number] [place] [address] [place] Sodium [Moles/Vol] 142 mmol/L Normal 136-144 [facility] Comment on above: Order Comment: Speci men Type: BLOOD SPECIMEN Performed By: #### 2 4321-2, , 2776-05 ####[facility]ATORYCLIA [id number] [address] Urea nitrogen [Mass/Vol] 12 mg/dL Normal 9-24 [facility] Comment on above: Order Comment: Speci men Type: BLOOD SPECIMEN Performed By: #### 2 4321-2, , 2776-05 ####[facility]ATORYCLIA [id number] [address] CBC panel Auto (Bld)on 06-02 Erythrocyte distribution width (RBC) [Ratio] 15.0 % Normal 11.5-15.0 [facility] Comment on above: Order Comment: Speci men Type: BLOOD SPECIMEN Performed By: #### 5 8410-2 ####[facility]ATORYCLIA [id number] [address] Hematocrit (Bld) [Volume fraction] 34.3 % Low 39.0-51.0 [facility] Comment on above: Order Comment: Speci men Type: BLOOD SPECIMEN Performed By: #### 5 8410-2 ####[facility]ATORYCLIA [id number] [address] Hemoglobin (Bld) [Mass/Vol] 10.3 g/dL Low 13.0-17.0 [facility] Comment on above: Order Comment: Speci men Type: BLOOD SPECIMEN Performed By: #### 5 8410-2 ####[facility]ATORYCLIA [id number] [address] MCH (RBC) [Entitic mass] 27.0 pg Normal 26.0-34.0 [facility] Comment on above: Order Comment: Speci men Type: BLOOD SPECIMEN Performed By: #### 5 8410-2 ####[facility]ATORYCLIA [id number] [address] MCHC (RBC) [Mass/Vol] 30.0 g/dL Low 30.5-36.0 [facility] Comment on above: Order Comment: Speci men Type: BLOOD SPECIMEN Performed By: #### 5 8410-2 ####[facility]ATORYCLIA [id number] [address] MCV (RBC) [Entitic vol] 90.0 fL Normal 80.0-100.0 [facility] Comment on above: Order Comment: Speci men Type: BLOOD SPECIMEN Performed By: #### 5 8410-2 ####[facility]ATORYCLIA [id number] [address] Nucleated RBC (Bld) [#/Vol] 10*3/uL Normal <0.01 [facility] Comment on above: Order Comment: Speci men Type: BLOOD SPECIMEN Performed By: #### 5 8410-2 ####[facility]ATORYCLIA [id number] [address] Platelet mean volume (Bld) [Entitic vol] 10.2 fL Normal 9.0-12.7 [facility] Comment on above: Order Comment: Speci men Type: BLOOD SPECIMEN Performed By: #### 5 8410-2 ####[facility]ATORYCLIA [id number] [address] Platelets (Bld) [#/Vol] 194 10*3/uL Normal 150-400 [facility] Comment on above: Order Comment: Speci men Type: BLOOD SPECIMEN Performed By: #### 5 8410-2 ####[facility]ATORYCLIA [id number] [address] RBC (Bld) [#/Vol] 3.81 10*6/uL Low 4.20-6.00 [facility] Comment on above: Order Comment: Speci men Type: BLOOD SPECIMEN Performed By: #### 5 8410-2 ####[facility]ATORYCLIA [id number] [address] WBC (Bld) [#/Vol] 9.22 10*3/uL Normal 3.70-11.00 [facility] Comment on above: Order Comment: Speci men Type: BLOOD SPECIMEN Performed By: #### 5 8410-2 ####[facility]ORYCLIA [id number] [address] [place] CONSULT PROGon 06-02-2021 CONSULT PROG Normal [facility] CSF MANUAL DIFFon 06-02-2021 DIF TTL, CSF 25 cells counted Normal [facility] Comment on above: Order Comment: Speci men Type: CEREBROSPINAL FLUID Performed By: #### 3 4563-7, [id number], [id number] ####[facility]ORYCLIA [id number] [address] [place] LYMPH%, CSF 4 % Low 50-90 [facility] Comment on above: Order Comment: Speci men Type: CEREBROSPINAL FLUID Performed By: #### 3 4563-7, [id number], [id number] ####[facility]ORYCLIA [id number] [place] [address] [place] MACRO%, CSF 4 % High <1 [facility] Comment on above: Order Comment: Speci men Type: CEREBROSPINAL FLUID Performed By: #### 3 4563-7, [id number], [id number] ####[facility]ORYCLIA [id number] [place] [address] [place] MONO%, CSF 20 % Normal 10-50 [facility] Comment on above: Order Comment: Speci men Type: CEREBROSPINAL FLUID Performed By: #### 3 4563-7, [id number], [id number] ####[facility]ORYCLIA [id number] [address] [place] NEUT%, CSF 72 % High 0-3 [facility] Comment on above: Order Comment: Speci men Type: CEREBROSPINAL FLUID Performed By: #### 3 4563-7, [id number], [id number] ####[facility]ORYCLIA [id number] [address] [place] CSF PATHOLOGIST INTERP (LAB REFLEX ORDER-NO BILL)on 06-02-2021 CSF STAFF REVIEW Negative Normal [facility] Comment on above: Order Comment: Speci men Type: CEREBROSPINAL FLUID Performed By: #### 3 4563-7, [id number], [id number] ####[facility]ORYCLIA [id number] [address] Pathologist name Reviewed by Amador Stevens MD [facility] Comment on above: Order Comment: Speci men Type: CEREBROSPINAL FLUID Performed By: #### 3 4563-7, [id number], [id number] ####[facility]ORYCLIA [id number] [address] Cell count panel (CSF)on Clarity (CSF) Clear Normal Clear [facility] Comment on above: Order Comment: Speci men Type: CEREBROSPINAL FLUID Performed By: #### 3 4563-7, [id number], [id number] ####[facility]ORYCLIA [id number] [address] Clarity (Unsp spec) Not Indicated Normal Clear [facility] Comment on above: Order Comment: Speci men Type: CEREBROSPINAL FLUID Performed By: #### 3 4563-7, [id number], [id number] ####[facility]ORYCLIA [id number] [address] Color (CSF) Colorless Normal Colorless [facility] Comment on above: Order Comment: Speci men Type: CEREBROSPINAL FLUID Performed By: #### 3 4563-7, [id number], [id number] ####[facility]ORYCLIA [id number] [address] Color (Spun CSF) Not Indicated Normal Colorless [facility] Comment on above: Order Comment: Speci men Type: CEREBROSPINAL FLUID Performed By: #### 3 4563-7, [id number], [id number] ####[facility]ORYCLIA [id number] [address] CSF TUBE NUMBER Sterile Container Normal [facility] Comment on above: Order Comment: Speci men Type: CEREBROSPINAL FLUID Performed By: #### 3 4563-7, [id number], [id number] ####[facility]ATORYCLIA [id number] [address] RBC Manual cnt (CSF) [#/Vol] 117 cells/uL High 0-5 [facility] Comment on above: Order Comment: Speci men Type: CEREBROSPINAL FLUID Performed By: #### 3 4563-7, [id number], [id number] ####[facility]ATORYCLIA [id number] [address] WBC Manual cnt (CSF) [#/Vol] 1 cells/uL Normal 0-5 [facility] Comment on above: Order Comment: Speci men Type: CEREBROSPINAL FLUID Performed By: #### 3 4563-7, [id number], [id number] ####[facility]ATORYCLIA [id number] [address] Glucose CSF-mCncon 2 Glucose (CSF) [Mass/Vol] 82 mg/dL High 40-70 [facility] Comment on above: Order Comment: Speci men Type: CEREBROSPINAL FLUID Result Comment: Lumb ar CSF glucose values of healthy patients are approximately 60% of the plasma values and must always be compared with a concurrently measured plasma value for adequate clinical interpretation.References: 1. Glucose HK (GLUC3) [package insert V 12.0 [place]]. [employer], [place], [place]. September 2015. 2. Michelle Moore, Loki, H. (2015). Chapter 7: Glucose and Lactate. F. Irina rose al.(eds.), Cerebrospinal Fluid in Clinical Neurology. [place]: [employer]. Performed By: #### 2 342-4 ####[facility]ATORYCLIA [id number] [address] HEPATIC FUNCTION PNLon 06-02 Albumin [Mass/Vol] 3.2 g/dL Low 3.9-4.9 [facility] Comment on above: Order Comment: Speci men Type: BLOOD SPECIMEN Performed By: #### [place], [address]-0 ####[facility]ORYCLIA [id number] [address] ALP [Catalytic activity/Vol] 67 U/L Normal 38-113 [facility] Comment on above: Order Comment: Speci men Type: BLOOD SPECIMEN Performed By: #### [place], [address]-7 ####[facility]ORYCLIA [id number] [address] ALT With P-5'-P [Catalytic activity/Vol] 16 U/L Normal 10-54 [facility] Comment on above: Order Comment: Speci men Type: BLOOD SPECIMEN Performed By: #### H FP, ####[facility]ORYCLIA [id number] [address] AST With P-5'-P [Catalytic activity/Vol] 25 U/L Normal 14-40 [facility] Comment on above: Order Comment: Speci men Type: BLOOD SPECIMEN Performed By: #### H FP, ####[facility]ORYCLIA [id number] [address] [address] Bilirubin [Mass/Vol] 0.2 mg/dL Normal 0.2-1.3 [facility] Comment on above: Order Comment: Speci men Type: BLOOD SPECIMEN Performed By: #### [place], [address]-0 ####[facility]ORYCLIA [id number] [address] Bilirubin.conjugated [Mass/Vol] mg/dL Normal <0.2 [facility] Comment on above: Order Comment: Speci men Type: BLOOD SPECIMEN Performed By: #### H FP, ####[facility]ORYCLIA [id number] [address] Protein [Mass/Vol] 5.8 g/dL Low 6.3-8.0 [facility] Comment on above: Order Comment: Speci men Type: BLOOD SPECIMEN Performed By: #### [place] KATHIE, [address]22-4 ####[facility]ATORYCLIA [id number] [address] MRI BRAIN WO/W IVCONon 06-02 MRI BRAIN WO/W IVCON Normal [facility] Magnesium SerPl-mCncon 06-02 Magnesium [Mass/Vol] 2.0 mg/dL Normal 1.7-2.3 [facility] Comment on above: Order Comment: Speci men Type: BLOOD SPECIMEN Performed By: #### 2 4321-2, , 2776-05 ####[facility]ATORYCLIA [id number] [address] NT-proBNP SerPl-ncon 06-02 Natriuretic peptide.B prohormone N-Terminal [Mass/Vol] 296 pg/mL High <125 [facility] Comment on above: Order Comment: Speci men Type: BLOOD SPECIMEN Performed By: #### [place] KATHIE, 87747-9 ####[facility]ORATORYCLIA [id number] [address] POTASSIUM BLDon 06-02-2021 Potassium [Moles/Vol] 3.2 mmol/L Low 3.7-5.1 [facility] Comment on above: Order Comment: Speci men Type: BLOOD SPECIMEN Performed By: #### K 1 ####[facility]ATORYCLIA [id number] [address] Phosphate SerPl-mCncon 06-02 Phosphate [Mass/Vol] 2.1 mg/dL Low 2.7-4.8 [facility] Comment on above: Order Comment: Speci men Type: BLOOD SPECIMEN Performed By: #### 2 4321-2, , 2776-05 ####[facility]ORYCLIA [id number] [address] Vancomycin random [Mass/Vol] on 06-02-2021 Vancomycin [Mass/Vol] 18.8 ug/mL Normal 10.0-20.0 [facility] Comment on above: Order Comment: Speci men Type: BLOOD SPECIMEN Result Comment: Refe rence ranges and high/low indicator flags are provided as general guidelines only. The treating physician must determine appropriate target levels/dosing based on the specific clinical situation. Performed By: #### 4 091-5 ####[facility]ORATORYCLIA [id number] [address] OF [facility] ALLIED HEALTHon 06-01-2021 ALLIED HEALTH Normal [facility] ALLIED HEALTH Normal [facility] HEALTH Normal [facility] ARTERIAL BLOOD GASESon 06-01 Base excess Calc (Bld) [Moles/Vol] 1 mmol/L Normal 0-2 [facility] Comment on above: Order Comment: Speci men Type: ARTERIAL BLOOD SPECIMEN Performed By: #### A LLBG ####[facility]ORATORYCLIA [id number] [address] Body temperature 97.52 [degF] Normal [facility] Comment on above: Order Comment: Speci men Type: ARTERIAL BLOOD SPECIMEN Performed By: #### A LLBG ####[facility]ORATORYCLIA [id number] [address] CALCIUM IONIZED, PH CORRECTED 1.13 mmol/L Normal 1.08-1.30 [facility] Comment on above: Order Comment: Speci men Type: ARTERIAL BLOOD SPECIMEN Performed By: #### A LLBG ####[facility]ATORYCLIA [id number] [address] Calcium.ionized (BldV) [Mass/Vol] 1.12 mmol/L Normal 1.08-1.30 [facility] Comment on above: Order Comment: Speci men Type: ARTERIAL BLOOD SPECIMEN Performed By: #### A LLBG ####[facility]ORATORYCLIA [id number] [address] [place] Carboxyhemoglobin (BldA) [Mass fraction] 1.6 % Normal 0.0-2.0 [facility] Comment on above: Order Comment: Speci men Type: ARTERIAL BLOOD SPECIMEN Result Comment: Carb oxyhemoglobin Reference Range for Smokers: 2.0-8.0% Performed By: #### A LLBG ####[facility]ORYCLIA [id number] [address] CO2 (Bld) [Partial pressure] 41 mm Hg Normal 36-46 [facility] Comment on above: Order Comment: Speci men Type: ARTERIAL BLOOD SPECIMEN Performed By: #### A LLBG ####[facility]ORYCLIA [id number] [address] CO2 [Moles/Vol] 23.0 mmol/L Normal 22-28 [facility] Comment on above: Order Comment: Speci men Type: ARTERIAL BLOOD SPECIMEN Performed By: #### A LLBG ####[facility]ORYCLIA [id number] [address] CO2 adjusted to patient's actual temperature (Bld) [Partial pressure] 40 mmHg Normal 36-46 [facility] Comment on above: Order Comment: Speci men Type: ARTERIAL BLOOD SPECIMEN Performed By: #### A LLBG ####[facility]ORYCLIA [id number] [address] FIO2 40 % Normal [facility] Comment on above: Order Comment: Speci men Type: ARTERIAL BLOOD SPECIMEN Performed By: #### A LLBG ####[facility]ORYCLIA [id number] [address] OF [place] Glucose [Mass/Vol] 127 mg/dL High 60-105 [facility] Comment on above: Order Comment: Speci men Type: ARTERIAL BLOOD SPECIMEN Performed By: #### A LLBG ####[facility]ORYCLIA [id number] [address] HCO3 (Bld) [Moles/Vol] 25 mmol/L Normal 22-26 [facility] Comment on above: Order Comment: Speci men Type: ARTERIAL BLOOD SPECIMEN Performed By: #### A LLBG ####[facility]ORYCLIA [id number] [address] [place] Hematocrit (Bld) [Volume fraction] 33.7 % Low 39.0-51.0 [facility] Comment on above: Order Comment: Speci men Type: ARTERIAL BLOOD SPECIMEN Performed By: #### A LLBG ####[facility]ORYCLIA [id number] [address] [place] Hemoglobin (Bld) [Mass/Vol] 10.9 g/dL Low 13.0-17.0 [facility] Comment on above: Order Comment: Speci men Type: ARTERIAL BLOOD SPECIMEN Performed By: #### A LLBG ####[facility]ORYCLIA [id number] [address] INHALED TIDAL VOLUME (ML) 500 Normal [facility] Comment on above: Order Comment: Speci men Type: ARTERIAL BLOOD SPECIMEN Performed By: #### A LLBG ####[facility]ORYCLIA [id number] [address] OF [place] INVASIVE VENTILATOR MODE PRVC=Pressure Regulated Volume Control Normal [facility] Comment on above: Order Comment: Speci men Type: ARTERIAL BLOOD SPECIMEN Performed By: #### A LLBG ####[facility]ORYCLIA [id number] [address] OF [place] Methemoglobin (Bld) [Mass fraction] % Normal 0.0-1.5 [facility] Comment on above: Order Comment: Speci men Type: ARTERIAL BLOOD SPECIMEN Performed By: #### A LLBG ####[facility]ORYCLIA [id number] [address] OF [place] O2 THERAPY Ventilator Normal [facility] Comment on above: Order Comment: Speci men Type: ARTERIAL BLOOD SPECIMEN Performed By: #### A LLBG ####[facility]ORYCLIA [id number] [address] OF [place] Oxygen (Bld) [Partial pressure] 64 mm Hg Low 85-95 [facility] Comment on above: Order Comment: Speci men Type: ARTERIAL BLOOD SPECIMEN Performed By: #### A LLBG ####[facility]ORYCLIA [id number] [address] Oxygen adjusted to patient's actual temperature (Bld) [Partial pressure] 61.8 mmHg Low 85-95 [facility] Comment on above: Order Comment: Speci men Type: ARTERIAL BLOOD SPECIMEN Performed By: #### A LLBG ####[facility]ORYCLIA [id number] [address] OXYGEN SATURATION, ARTERIAL 94 % Low 95-98 [facility] Comment on above: Order Comment: Speci men Type: ARTERIAL BLOOD SPECIMEN Performed By: #### A LLBG ####[facility]ORYCLIA [id number] [address] Oxyhemoglobin (BldA) [Mass fraction] 92 % Low 95-98 [facility] Comment on above: Order Comment: Speci men Type: ARTERIAL BLOOD SPECIMEN Performed By: #### A LLBG ####[facility]ORYCLIA [id number] [address] PEEP/CPAP 5 cmH2O Normal [facility] Comment on above: Order Comment: Speci men Type: ARTERIAL BLOOD SPECIMEN Performed By: #### A LLBG ####[facility]ORYCLIA [id number] [address] pH (Bld) 7.40 [pH] Normal 7.35-7.45 [facility] Comment on above: Order Comment: Speci men Type: ARTERIAL BLOOD SPECIMEN Performed By: #### A LLBG ####[facility]ORYCLIA [id number] [address] pH adjusted to patient's actual temperature (Bld) 7.41 Normal 7.35-7.45 [facility] Comment on above: Order Comment: Speci men Type: ARTERIAL BLOOD SPECIMEN Performed By: #### A LLBG ####[facility]ORYCLIA [id number] [address] [place] Potassium [Moles/Vol] 3.1 mmol/L Low 3.5-5.0 [facility] Comment on above: Order Comment: Speci men Type: ARTERIAL BLOOD SPECIMEN Performed By: #### A LLBG ####[facility]ORYCLIA [id number] [address] SET VENTILATOR RESPIRATORY RATE (BPM) 18 BPM Normal [facility] Comment on above: Order Comment: Speci men Type: ARTERIAL BLOOD SPECIMEN Performed By: #### A LLBG ####[facility]CLIA [id number] [address] Sodium [Moles/Vol] 141 mmol/L Normal 136-144 [facility] Comment on above: Order Comment: Speci men Type: ARTERIAL BLOOD SPECIMEN Performed By: #### A LLBG ####[facility]ORYCLIA [id number] [address] BASE DEFICIT, ARTERIAL -1.0 mmol/L Normal -2-0 [facility] Comment on above: Order Comment: Speci men Type: ARTERIAL BLOOD SPECIMEN Performed By: #### A LLBG ####[facility]ORYCLIA [id number] [address] Body temperature 98.24 [degF] Normal [facility] Comment on above: Order Comment: Speci men Type: ARTERIAL BLOOD SPECIMEN Performed By: #### A LLBG ####[facility]ORYCLIA [id number] [address] CALCIUM IONIZED, PH CORRECTED 1.08 mmol/L Normal 1.08-1.30 [facility] Comment on above: Order Comment: Speci men Type: ARTERIAL BLOOD SPECIMEN Performed By: #### A LLBG ####[facility]ORYCLIA [id number] [address] Calcium.ionized (BldV) [Mass/Vol] 1.15 mmol/L Normal 1.08-1.30 [facility] Comment on above: Order Comment: Speci men Type: ARTERIAL BLOOD SPECIMEN Performed By: #### A LLBG ####[facility]CLIA [id number] [address] Carboxyhemoglobin (BldA) [Mass fraction] 1.4 % Normal 0.0-2.0 [facility] Comment on above: Order Comment: Speci men Type: ARTERIAL BLOOD SPECIMEN Result Comment: Carb oxyhemoglobin Reference Range for Smokers: 2.0-8.0% Performed By: #### A LLBG ####[facility]ORYCLIA [id number] [address] CO2 (Bld) [Partial pressure] 59 mm Hg High 36-46 [facility] Comment on above: Order Comment: Speci men Type: ARTERIAL BLOOD SPECIMEN Performed By: #### A LLBG ####[facility]CLIA [id number] [address] CO2 [Moles/Vol] 24.5 mmol/L Normal 22-28 [facility] Comment on above: Order Comment: Speci men Type: ARTERIAL BLOOD SPECIMEN Performed By: #### A LLBG ####[facility]CLIA [id number] [address] CO2 adjusted to patient's actual temperature (Bld) [Partial pressure] 58 mmHg High 36-46 [facility] Comment on above: Order Comment: Speci men Type: ARTERIAL BLOOD SPECIMEN Performed By: #### A LLBG ####[facility]ORYCLIA [id number] [address] FIO2 40 % Normal [facility] Comment on above: Order Comment: Speci men Type: ARTERIAL BLOOD SPECIMEN Performed By: #### A LLBG ####[facility]CLIA [id number] [address] Glucose [Mass/Vol] 128 mg/dL High 60-105 [facility] Comment on above: Order Comment: Speci men Type: ARTERIAL BLOOD SPECIMEN Performed By: #### A LLBG ####[facility]ORYCLIA [id number] [address] OF [place] HCO3 (Bld) [Moles/Vol] 26 mmol/L Normal 22-26 [facility] Comment on above: Order Comment: Speci men Type: ARTERIAL BLOOD SPECIMEN Performed By: #### A LLBG ####[facility]CLIA [id number] [address] [place] Hematocrit (Bld) [Volume fraction] 35.6 % Low 39.0-51.0 [facility] Comment on above: Order Comment: Speci men Type: ARTERIAL BLOOD SPECIMEN Performed By: #### A LLBG ####[facility]CLIA [id number] [address] OF [facility] Hemoglobin (Bld) [Mass/Vol] 11.5 g/dL Low 13.0-17.0 [facility] Comment on above: Order Comment: Speci men Type: ARTERIAL BLOOD SPECIMEN Performed By: #### A LLBG ####[facility]ORYCLIA [id number] [address] INHALED TIDAL VOLUME (ML) 500 Normal [facility] Comment on above: Order Comment: Speci men Type: ARTERIAL BLOOD SPECIMEN Performed By: #### A LLBG ####[facility]CLIA [id number] [address] INVASIVE VENTILATOR MODE PRVC=Pressure Regulated Volume Control Normal [facility] Comment on above: Order Comment: Speci men Type: ARTERIAL BLOOD SPECIMEN Performed By: #### A LLBG ####[facility]CLIA [id number] [address] OF [place] Methemoglobin (Bld) [Mass fraction] % Normal 0.0-1.5 [facility] Comment on above: Order Comment: Speci men Type: ARTERIAL BLOOD SPECIMEN Performed By: #### A LLBG ####[facility]CLIA [id number] [address] OF [place] O2 THERAPY Ventilator Normal [facility] Comment on above: Order Comment: Speci men Type: ARTERIAL BLOOD SPECIMEN Performed By: #### A LLBG ####[facility]ORYCLIA [id number] [address] Oxygen (Bld) [Partial pressure] 88 mm Hg Normal 85-95 [facility] Comment on above: Order Comment: Speci men Type: ARTERIAL BLOOD SPECIMEN Performed By: #### A LLBG ####[facility]ORYCLIA [id number] [address] Oxygen adjusted to patient's actual temperature (Bld) [Partial pressure] 86.5 mmHg Normal 85-95 [facility] Comment on above: Order Comment: Speci men Type: ARTERIAL BLOOD SPECIMEN Performed By: #### A LLBG ####[facility]ORYCLIA [id number] [address] OXYGEN SATURATION, ARTERIAL 95 % Normal 95-98 [facility] Comment on above: Order Comment: Speci men Type: ARTERIAL BLOOD SPECIMEN Performed By: #### A LLBG ####[facility]CLIA [id number] [address] Oxyhemoglobin (BldA) [Mass fraction] 93 % Low 95-98 [facility] Comment on above: Order Comment: Speci men Type: ARTERIAL BLOOD SPECIMEN Performed By: #### A LLBG ####[facility]ORYCLIA [id number] [address] PEEP/CPAP 5 cmH2O Normal [facility] Comment on above: Order Comment: Speci men Type: ARTERIAL BLOOD SPECIMEN Performed By: #### A LLBG ####[facility]ORYCLIA [id number] [address] pH (Bld) 7.27 [pH] Low 7.35-7.45 [facility] Comment on above: Order Comment: Speci men Type: ARTERIAL BLOOD SPECIMEN Performed By: #### A LLBG ####[facility]ORYCLIA [id number] [address] pH adjusted to patient's actual temperature (Bld) 7.28 Low 7.35-7.45 [facility] Comment on above: Order Comment: Speci men Type: ARTERIAL BLOOD SPECIMEN Performed By: #### A LLBG ####[facility]CLIA [id number] [address] Potassium [Moles/Vol] 3.3 mmol/L Low 3.5-5.0 [facility] Comment on above: Order Comment: Speci men Type: ARTERIAL BLOOD SPECIMEN Performed By: #### A LLBG ####[facility]ATORYCLIA [id number] [address] SET VENTILATOR RESPIRATORY RATE (BPM) 14 BPM Normal [facility] Comment on above: Order Comment: Speci men Type: ARTERIAL BLOOD SPECIMEN Performed By: #### A LLBG ####[facility]ATORYCLIA [id number] [address] Sodium [Moles/Vol] 141 mmol/L Normal 136-144 [facility] Comment on above: Order Comment: Speci men Type: ARTERIAL BLOOD SPECIMEN Performed By: #### A LLBG ####[facility]ATORYCLIA [id number] [address] Bacteria CSF Culton 06-01-19 Bacteria identified Cx Nom (CSF) CULTURE, CSF: No growth 14 days GRAM STAIN: No organisms seen Rare Polymorphonuclear leukocytes Moderate Red Blood Cells Gram stain performed on cytospun specimen. Normal [facility] Comment on above: Performed By: #### 6 06-4 ####[facility]ATORYCLIA [id number] [address] Bacteria Spec Resp Culton Bacteria identified Respiratory culture Nom (Unsp spec) CULTURE, RESPIRATORY: No growth 2 days GRAM STAIN: No organisms seen No Polymorphonuclear Leukocytes Normal [facility] Comment on above: Performed By: #### 3 2355-0 ####[facility]CL[facility] [id number] [address] Basic metabolic 2000 panelon 06-01-2021 Anion gap [Moles/Vol] 8 mmol/L Low 9-18 [facility] Comment on above: Order Comment: Speci men Type: BLOOD SPECIMEN Performed By: #### 2 4321-2, , 2776-05 ####[facility]ORYCLIA [id number] [place], [place] [id number] [place] [address] [place] Calcium [Mass/Vol] 7.8 mg/dL Low 8.5-10.2 [facility] Comment on above: Order Comment: Speci men Type: BLOOD SPECIMEN Performed By: #### 2 4321-2, , 2776-05 ####[facility]ATORYCLIA [id number] [address] [place] [facility] Chloride [Moles/Vol] 109 mmol/L High 97-105 [facility] Comment on above: Order Comment: Speci men Type: BLOOD SPECIMEN Performed By: #### 2 4321-2, , 2776-05 ####[facility]CLIA [id number] [address] [place] CO2 [Moles/Vol] 26 mmol/L Normal 22-30 [facility] Comment on above: Order Comment: Speci men Type: BLOOD SPECIMEN Performed By: #### 2 4321-2, , 2776-05 ####[facility]ORYCLIA [id number] [place] [address] [place] Creatinine [Mass/Vol] 0.82 mg/dL Normal 0.73-1.22 [facility] Comment on above: Order Comment: Speci men Type: BLOOD SPECIMEN Performed By: #### 2 4321-2, , 2776-05 ####[facility]ORYCLIA [id number] [place] [address] [place] GFR/1.73 sq M.predicted MDRD (S/P/Bld) [Vol rate/Area] mL/min/{1.73_m2} Normal [facility] Comment on above: Order Comment: Speci men Type: BLOOD SPECIMEN Result Comment: >60e GFR (Estimated GFR) Units of measure: mL/min/1.73 meters squaredeGFR is derived from the reexpressed MDRD Study equation using the following parameters: serum creatinine, age, gender and race. The creatinine assay has been calibrated to be traceable to IDMS. An eGFR <60 mL/min/1.73m2 for >3 months is consistent with chronic kidney disease. Refer to KDOQI guidelines for clinical interpretation. In patients with unstable renal function, e.g. those with acute kidney injury, the eGFR may not accurately reflect actual GFR. Performed By: #### 2 4321-2, , 2776-05 ####[facility]ORATORYCLIA [id number] [place] [address] [place] Glucose [Mass/Vol] 105 mg/dL High 74-99 [facility] Comment on above: Order Comment: [facility] Type: BLOOD SPECIMEN Result Comment: The [place] [employer] (ADA) provides guidance for cutoff values for fasting glucose and random glucose. The ADA defines fasting as no caloric intake for at least 8 hours. Fasting plasma glucose results between 100 to 125 mg/dL indicate increased risk for diabetes (prediabetes).Fasting plasma glucose results greater than or equal to 126 mg/dL meet the criteria for diagnosis of diabetes. In the absence of unequivocal hyperglycemia, results should be confirmed by repeat testing. In a patient with classic symptoms of hyperglycemia or hyperglycemic crisis, random plasma glucose results greater than or equal to 200 mg/dL meet the criteria for diagnosis of diabetes.Reference: Standards of Medical Care in Diabetes 2016, [place] [employer]. Diabetes Care. 2016.39(Suppl 1). Performed By: #### 2 4321-2, , 2776-05 ####[facility]ORATORYCLIA [id number] [place] [address] [place] Potassium [Moles/Vol] 3.8 mmol/L Normal 3.7-5.1 [facility] Comment on above: Order Comment: [facility] Type: BLOOD SPECIMEN Performed By: #### 2 4321-2, , 2776-05 ####[facility]ATORYCLIA [id number] [address] Sodium [Moles/Vol] 143 mmol/L Normal 136-144 [facility] Comment on above: Order Comment: Speci men Type: BLOOD SPECIMEN Performed By: #### 2 4321-2, 32359-3, 2776- ####[facility]ATORYCLIA [id number] [address] Urea nitrogen [Mass/Vol] 15 mg/dL Normal 9-24 [facility] Comment on above: Order Comment: Speci men Type: BLOOD SPECIMEN Performed By: #### 2 4321-2, , 2776-05 ####[facility]ATORYCLIA [id number] [address] CBC panel Auto (Bld)on 06-01 Erythrocyte distribution width (RBC) [Ratio] 15.4 % High 11.5-15.0 [facility] Comment on above: Order Comment: Speci men Type: BLOOD SPECIMEN Performed By: #### 5 8410-2 ####[facility]ATORYCLIA [id number] [address] Hematocrit (Bld) [Volume fraction] 38.4 % Low 39.0-51.0 [facility] Comment on above: Order Comment: Speci men Type: BLOOD SPECIMEN Performed By: #### 5 8410-2 ####[facility]ATORYCLIA [id number] [address] Hemoglobin (Bld) [Mass/Vol] 11.1 g/dL Low 13.0-17.0 [facility] Comment on above: Order Comment: Speci men Type: BLOOD SPECIMEN Performed By: #### 5 8410-2 ####[facility]ATORYCLIA [id number] [address] MCH (RBC) [Entitic mass] 26.9 pg Normal 26.0-34.0 [facility] Comment on above: Order Comment: Speci men Type: BLOOD SPECIMEN Performed By: #### 5 8410-2 ####[facility]ATORYCLIA [id number] [address] MCHC (RBC) [Mass/Vol] 28.9 g/dL Low 30.5-36.0 [facility] Comment on above: Order Comment: Speci men Type: BLOOD SPECIMEN Performed By: #### 5 8410-2 ####[facility]ATORYCLIA [id number] [address] MCV (RBC) [Entitic vol] 93.2 fL Normal 80.0-100.0 [facility] Comment on above: Order Comment: Speci men Type: BLOOD SPECIMEN Performed By: #### 5 8410-2 ####[facility]ATORYCLIA [id number] [address] Nucleated RBC (Bld) [#/Vol] 10*3/uL Normal <0.01 [facility] Comment on above: Order Comment: Speci men Type: BLOOD SPECIMEN Performed By: #### 5 8410-2 ####[facility]ORYCLIA [id number] [address] Platelet mean volume (Bld) [Entitic vol] 10.2 fL Normal 9.0-12.7 [facility] Comment on above: Order Comment: Speci men Type: BLOOD SPECIMEN Performed By: #### 5 8410-2 ####[facility]ORYCLIA [id number] [address] Platelets (Bld) [#/Vol] 231 10*3/uL Normal 150-400 [facility] Comment on above: Order Comment: Speci men Type: BLOOD SPECIMEN Performed By: #### 5 8410-2 ####[facility]ATORYCLIA [id number] [address] RBC (Bld) [#/Vol] 4.12 10*6/uL Low 4.20-6.00 [facility] [facility] Comment on above: Order Comment: Speci men Type: BLOOD SPECIMEN Performed By: #### 5 8410-2 ####[facility]ATORYCLIA [id number] [address] WBC (Bld) [#/Vol] 10.99 10*3/uL Normal 3.70-11.00 [facility] Comment on above: Order Comment: Speci men Type: BLOOD SPECIMEN Performed By: #### 5 8410-2 ####[facility] LABORATORYCLIA [id number] [address] CONSULT PROGon 06-01-2021 CONSULT PROG Normal [facility] CSF MANUAL DIFFon 06-01-2021 DIF TTL, CSF 100 cells counted Normal [facility] Comment on above: Order Comment: Speci men Type: CEREBROSPINAL FLUID Performed By: #### 3 4563-7, [id number] ####[facility] LABORATORYCLIA [id number] [address] LYMPH%, CSF 11 % Low 50-90 [facility] Comment on above: Order Comment: Speci men Type: CEREBROSPINAL FLUID Performed By: #### 3 4563-7, [id number] ####[facility]ORYCLIA [id number] [address] MONO%, CSF 10 % Normal 10-50 [facility] Comment on above: Order Comment: Speci men Type: CEREBROSPINAL FLUID Performed By: #### 3 4563-7, [id number] ####[facility]ORYCLIA [id number] [address] NEUT%, CSF 79 % High 0-3 [facility] Comment on above: Order Comment: Speci men Type: CEREBROSPINAL FLUID Performed By: #### 3 4563-7, [id number] ####[facility]ORYCLIA [id number] [address] BRAIN WO IVCONon 06-01-19 CT BRAIN WO IVCON Normal [facility] Cell count panel (CSF)on Clarity (CSF) Clear Normal Clear [facility] Comment on above: Order Comment: Speci men Type: CEREBROSPINAL FLUID Performed By: #### 3 4563-7, [id number] ####[facility]ORYCLIA [id number] [address] Clarity (Unsp spec) Not Indicated Normal Clear [facility] Comment on above: Order Comment: Speci men Type: CEREBROSPINAL FLUID Performed By: #### 3 4563-7, [id number] ####[facility]ORYCLIA [id number] [address] Color (CSF) Colorless Normal Colorless [facility] Comment on above: Order Comment: Speci men Type: CEREBROSPINAL FLUID Performed By: #### 3 4563-7, [id number] ####[facility]ORYCLIA [id number] [address] Color (Spun CSF) Not Indicated Normal Colorless [facility] Comment on above: Order Comment: Speci men Type: CEREBROSPINAL FLUID Performed By: #### 3 4563-7, [id number] ####[facility]ORYCLIA [id number] [address] CSF TUBE NUMBER Sterile Container Normal [facility] Comment on above: Order Comment: Speci men Type: CEREBROSPINAL FLUID Performed By: #### 3 4563-7, [id number] ####[facility]ORYCLIA [id number] [address] RBC Manual cnt (CSF) [#/Vol] 171 cells/uL High 0-5 [facility] Comment on above: Order Comment: Speci men Type: CEREBROSPINAL FLUID Performed By: #### 3 4563-7, [id number] ####[facility]ORYCLIA [id number] [address] WBC Manual cnt (CSF) [#/Vol] 5 cells/uL Normal 0-5 [facility] Comment on above: Order Comment: Speci men Type: CEREBROSPINAL FLUID Performed By: #### 3 4563-7, [id number] ####[facility]ORYCLIA [id number] [address] [place] FUNGAL CULTUREon 06-01-2021 FUNGAL CULTURE CULTURE, FUNGAL: No Fungus isolated after 28 days Normal [facility] Comment on above: Performed By: #### F CUL ####[facility] LABORATORYCLIA [id number] [place] [address] [place] Glucose CSF-mCncon 2 Glucose (CSF) [Mass/Vol] 78 mg/dL High 40-70 [facility] Comment on above: Order Comment: Speci men Type: CEREBROSPINAL FLUID Result Comment: Lumb ar CSF glucose values of healthy patients are approximately 60% of the plasma values and must always be compared with a concurrently measured plasma value for adequate clinical interpretation.References: 1. Glucose HK (GLUC3) [package insert V 12.0 [place]]. [employer], [place], [place]. September 2015. 2. Michelle Moore, Loki HGarfield (2015). Chapter 7: Glucose and Lactate. FGarfield Alcocer al.(eds.), Cerebrospinal Fluid in Clinical Neurology. [place]: [place]. Performed By: #### 2 342-4, 2880-3 ####[facility] LABORATORYCLIA [id number] [address] HERPES SIMPLEX CSFon 022 HERPES SIMPLEX CSF HSV PCR SPEC SOURCE: Cerebrospinal Fluid HSV-1: Negative for Herpes Simplex Virus Type 1 by PCR HSV-2: Negative for Herpes Simplex Virus Type 2 by PCR Normal [facility] Comment on above: Performed By: #### [facility] ####[facility] REFERENCE LABCLIA [id number] [id number] [address] [place] Lactate (Bld) [Moles/Vol]on 06-01-2021 Lactate [Moles/Vol] 0.5 mmol/L Normal 0.5-2.2 [facility] Comment on above: Order Comment: Speci men Type: BLOOD SPECIMEN Performed By: #### 3 2693-4 ####[facility] LABORATORYCLIA [id number] [address] [facility] MENINGITIS ENCEPHALITIS BIOF IREon 06-01-2021 MENINGITIS ENCEPHALITIS BIOFIRE Negative Normal [facility] Comment on above: Order Comment: Speci men Type: CEREBROSPINAL FLUID Performed By: #### M GEBF ####[facility] CENTERCLIA [id number] [place] [address] Magnesium SerPl-mCncon 06-01 Magnesium [Mass/Vol] 2.2 mg/dL Normal 1.7-2.3 [facility] Comment on above: Order Comment: Speci men Type: BLOOD SPECIMEN Performed By: #### 2 4321-2, 51109-3, 2777-1 ####[facility] LABORATORYCLIA [id number] [address] OF [facility] Microorganism Spec Culton Microorganism identified Cx Nom (Unsp spec) CULTURE, AFB: No Acid Fast Bacilli isolated after 42 days AFB STAIN: No acid fast bacilli seen by flurochrome stain Normal [facility] Comment on above: Performed By: #### 1 1475-1 ####[facility] LABORATORYCLIA [id number] [address] PROCALCITONIN (LAB)on 2021 Procalcitonin [Mass/Vol] 0.08 ng/mL Normal <0.09 [facility] Comment on above: Order Comment: Speci men Type: BLOOD SPECIMEN Result Comment: For a guided interpretation of test results, please visit the Change in Procalcitonin Calculator, [email or web address]. Performed By: #### P ROCAL ####[facility] LABORATORYCLIA [id number] [address] [place] Phosphate SerPl-mCncon 06-01 Phosphate [Mass/Vol] 3.5 mg/dL Normal 2.7-4.8 [facility] Comment on above: Order Comment: Speci men Type: BLOOD SPECIMEN Performed By: #### 2 4321-2, 95165-7, 2777-1 ####[facility]ORATORYCLIA [id number] [address] [place] Prot CSF-mCncon 06-01-2021 Protein (CSF) [Mass/Vol] 52 mg/dL High 15-45 [facility] Comment on above: Order Comment: Speci men Type: CEREBROSPINAL FLUID Performed By: #### 2 342-4, 2880-3 ####[facility]ORATORYCLIA [id number] [address] Vancomycin random [Mass/Vol] on 06-01-2021 Vancomycin [Mass/Vol] 14.6 ug/mL Normal 10.0-20.0 [facility] Comment on above: Order Comment: Speci men Type: BLOOD SPECIMEN Result Comment: Refe rence ranges and high/low indicator flags are provided as general guidelines only. The treating physician must determine appropriate target levels/dosing based on the specific clinical situation. Performed By: #### 4 091-5 ####[facility] LABORATORYCLIA [id number] [address] XR CHEST 1V FRONTALon 2021 XR CHEST 1V FRONTAL Normal [facility] XR CHEST 1V FRONTAL Normal [facility] XR NECK SOFT TISSUE 2V AP/LA Ton 06-01-2021 XR NECK SOFT TISSUE 2V AP/LAT Normal [facility] XR SKULL 2V AP/LATon 022 XR SKULL 2V AP/LAT Normal [facility] ALLIED HEALTHon 05-31-2021 ALLIED HEALTH HNO ID: [id number] Author: Christina Lynne RT(R) Service: Radiology Author Type: Technologist Type: Allied Health Filed: 05/31/2021 5:48 PM Note Text: MRI tomorrow per RN. Normal [facility] ALLIED HEALTH Normal [facility] ALLIED HEALTH Normal [facility] ALLIED HEALTH Normal [facility] ANES POSTPROC EVALon 022 ANES POSTPROC EVAL Normal [facility] ANES PRE-OPon 05-31-2021 ANES PRE-OP Normal [facility] BRIEF OP NOTon 05-31-2021 BRIEF OP NOT Normal [facility] Bacteria Bld Culton 05-31-19 22 Bacteria identified Cx Nom (Bld) CULTURE, BLOOD: No growth 5 days Normal [facility] Comment on above: Performed By: #### 6 00-7 ####[facility] LABORATORYCLIA [id number] [place] [address] [place] Bacteria CSF Culton 05-31-19 22 Bacteria identified Cx Nom (CSF) CULTURE, CSF: No growth 14 days GRAM STAIN: No organisms seen Rare Polymorphonuclear leukocytes Rare Red Blood Cells Gram stain performed on cytospun specimen. Normal [facility] Comment on above: Performed By: #### 6 06-4 ####[facility] LABORATORYCLIA [id number] [address] [place] Basic metabolic 2000 panelon 05-31-2021 Anion gap [Moles/Vol] 9 mmol/L Normal 9-18 [facility] Comment on above: Order Comment: Speci men Type: BLOOD SPECIMEN Performed By: #### 2 777-1, 73590-3, ####[facility]ORYCLIA [id number] [place] [address] [place] Calcium [Mass/Vol] 8.2 mg/dL Low 8.5-10.2 [facility] Comment on above: Order Comment: Speci men Type: BLOOD SPECIMEN Performed By: #### 2 777-1, 66584-7, ####[facility]ORYCLIA [id number] [place] [address] [place] Chloride [Moles/Vol] 110 mmol/L High 97-105 [facility] Comment on above: Order Comment: Speci men Type: BLOOD SPECIMEN Performed By: #### 2 777-1, 94354-2, ####[facility]ORYCLIA [id number] [place] [address] [place] CO2 [Moles/Vol] 27 mmol/L Normal 22-30 [facility] Comment on above: Order Comment: Speci men Type: BLOOD SPECIMEN Performed By: #### 2 777-1, 06878-1, ####[facility] LABORATORYCLIA [id number] [place] [address] [place] Creatinine [Mass/Vol] 0.85 mg/dL Normal 0.73-1.22 [facility] Comment on above: Order Comment: Speci men Type: BLOOD SPECIMEN Performed By: #### 2 777-1, 07791-7, ####[facility] [id number] [place] [id number] [facility] [place] GFR/1.73 sq M.predicted MDRD (S/P/Bld) [Vol rate/Area] mL/min/{1.73_m2} Normal [facility] Comment on above: Order Comment: Speci men Type: BLOOD SPECIMEN Result Comment: >60e GFR (Estimated GFR) Units of measure: mL/min/1.73 meters squaredeGFR is derived from the reexpressed MDRD Study equation using the following parameters: serum creatinine, age, gender and race. The creatinine assay has been calibrated to be traceable to IDMS. An eGFR <60 mL/min/1.73m2 for >3 months is consistent with chronic kidney disease. Refer to KDOQI guidelines for clinical interpretation. In patients with unstable renal function, e.g. those with acute kidney injury, the eGFR may not accurately reflect actual GFR. Performed By: #### 2 777-1, 21451-5, ####[facility]PITALIA [id number] [address] [place] Glucose [Mass/Vol] 111 mg/dL High 74-99 [facility] Comment on above: Order Comment: [facility] Type: BLOOD SPECIMEN Result Comment: The [place] Diabetes Association (ADA) provides guidance for cutoff values for fasting glucose and random glucose. The ADA defines fasting as no caloric intake for at least 8 hours. Fasting plasma glucose results between 100 to 125 mg/dL indicate increased risk for diabetes (prediabetes).Fasting plasma glucose results greater than or equal to 126 mg/dL meet the criteria for diagnosis of diabetes. In the absence of unequivocal hyperglycemia, results should be confirmed by repeat testing. In a patient with classic symptoms of hyperglycemia or hyperglycemic crisis, random plasma glucose results greater than or equal to 200 mg/dL meet the criteria for diagnosis of diabetes.Reference: Standards of Medical Care in Diabetes 2016, [place] [employer] Association. Diabetes Care. 2016.39(Suppl 1). Performed By: #### 2 777-1, 56268-1, ####[facility] LABORATORYCLIA [id number] [place], [place] [address] [place] [address] [place] [facility] Potassium [Moles/Vol] 3.7 mmol/L Normal 3.7-5.1 [facility] Comment on above: Order Comment: Speci men Type: BLOOD SPECIMEN Performed By: #### 2 777-1, , ####[facility] LABORATORYCLIA [id number] [address] STATES [facility] Sodium [Moles/Vol] 146 mmol/L High 136-144 [facility] Comment on above: Order Comment: Speci men Type: BLOOD SPECIMEN Performed By: #### 2 777-1, , ####[facility]ORATORYCLIA [id number] [address] STATES [facility] Urea nitrogen [Mass/Vol] 16 mg/dL Normal 9-24 [facility] Comment on above: Order Comment: Speci men Type: BLOOD SPECIMEN Performed By: #### 2 777-1, , ####[facility]ORATORYCLIA [id number] [address] [place] CASE MGT INIT ASSESon 2021 CASE MGT INIT ASSES Normal [facility] CBC W Auto Differential pane l (Bld)on 05-31-2021 Basophils (Bld) [#/Vol] 0.04 10*3/uL Normal <0.11 [facility] Comment on above: Order Comment: Speci men Type: BLOOD SPECIMEN Performed By: #### 5 7021-8 ####[facility]ORATORYCLIA [id number] [address] [place] Basophils/100 WBC (Bld) 0.5 % Normal [facility] Comment on above: Order Comment: Speci men Type: BLOOD SPECIMEN Performed By: #### 5 7021-8 ####[facility]ORYCLIA [id number] [address] Differential cell count method Nom (Bld) Auto Normal [facility] Comment on above: Order Comment: Speci men Type: BLOOD SPECIMEN Performed By: #### 5 7021-8 ####[facility]ORYCLIA [id number] [address] Eosinophils (Bld) [#/Vol] 0.27 10*3/uL Normal <0.46 [facility] Comment on above: Order Comment: Speci men Type: BLOOD SPECIMEN Performed By: #### 5 7021-8 ####[facility]ORYCLIA [id number] [address] Eosinophils/100 WBC (Bld) 3.3 % Normal [facility] Comment on above: Order Comment: Speci men Type: BLOOD SPECIMEN Performed By: #### 5 7021-8 ####[facility]ORYCLIA [id number] [address] Erythrocyte distribution width (RBC) [Ratio] 15.4 % High 11.5-15.0 [facility] Comment on above: Order Comment: Speci men Type: BLOOD SPECIMEN Performed By: #### 5 7021-8 ####[facility]ORYCLIA [id number] [address] Hematocrit (Bld) [Volume fraction] 37.9 % Low 39.0-51.0 [facility] Comment on above: Order Comment: Speci men Type: BLOOD SPECIMEN Performed By: #### 5 7021-8 ####[facility]ORYCLIA [id number] [address] [place] Hemoglobin (Bld) [Mass/Vol] 11.5 g/dL Low 13.0-17.0 [facility] Comment on above: Order Comment: Speci men Type: BLOOD SPECIMEN Performed By: #### 5 7021-8 ####[facility]ORYCLIA [id number] [address] IMMATURE GRAN % 0.4 % Normal [facility] Comment on above: Order Comment: Speci men Type: BLOOD SPECIMEN Performed By: #### 5 7021-8 ####[facility]ORYCLIA [id number] [address] IMMATURE GRAN ABS 0.03 k/uL Normal <0.10 [facility] Comment on above: Order Comment: Speci men Type: BLOOD SPECIMEN Performed By: #### 5 7021-8 ####[facility]ATORYCLIA [id number] [address] Lymphocytes (Bld) [#/Vol] 1.90 10*3/uL Normal 1.00-4.00 [facility] Comment on above: Order Comment: Speci men Type: BLOOD SPECIMEN Performed By: #### 5 7021-8 ####[facility]ORATORYCLIA [id number] [address] Lymphocytes/100 WBC (Bld) 23.0 % Normal [facility] Comment on above: Order Comment: Speci men Type: BLOOD SPECIMEN Performed By: #### 5 7021-8 ####[facility]ORYCLIA [id number] [address] MCH (RBC) [Entitic mass] 28.0 pg Normal 26.0-34.0 [facility] Comment on above: Order Comment: Speci men Type: BLOOD SPECIMEN Performed By: #### 5 7021-8 ####[facility]ORYCLIA [id number] [address] MCHC (RBC) [Mass/Vol] 30.3 g/dL Low 30.5-36.0 [facility] Comment on above: Order Comment: Speci men Type: BLOOD SPECIMEN Performed By: #### 5 7021-8 ####[facility]ORYCLIA [id number] [address] MCV (RBC) [Entitic vol] 92.4 fL Normal 80.0-100.0 [facility] Comment on above: Order Comment: Speci men Type: BLOOD SPECIMEN Performed By: #### 5 7021-8 ####[facility]ORYCLIA [id number] [address] Monocytes (Bld) [#/Vol] 0.60 10*3/uL Normal <0.87 [facility] Comment on above: Order Comment: Speci men Type: BLOOD SPECIMEN Performed By: #### 5 7021-8 ####[facility]ORATORYCLIA [id number] [address] Monocytes/100 WBC (Bld) 7.3 % Normal [facility] Comment on above: Order Comment: Speci men Type: BLOOD SPECIMEN Performed By: #### 5 7021-8 ####[facility]ATORYCLIA [id number] [address] Neutrophils (Bld) [#/Vol] 5.41 10*3/uL Normal 1.45-7.50 [facility] Comment on above: Order Comment: Speci men Type: BLOOD SPECIMEN Performed By: #### 5 7021-8 ####[facility]ATORYCLIA [id number] [address] Neutrophils/100 WBC (Bld) 65.5 % Normal [facility] Comment on above: Order Comment: Speci men Type: BLOOD SPECIMEN Performed By: #### 5 7021-8 ####[facility]ORYCLIA [id number] [address] Nucleated RBC (Bld) [#/Vol] 10*3/uL Normal <0.01 [facility] Comment on above: Order Comment: Speci men Type: BLOOD SPECIMEN Performed By: #### 5 7021-8 ####[facility]ORYCLIA [id number] [address] [place] Nucleated RBC/100 WBC (Bld) [Ratio] 0.0 /100 WBC Normal 0.0 [facility] Comment on above: Order Comment: Speci men Type: BLOOD SPECIMEN Performed By: #### 5 7021-8 ####[facility]ORATORYCLIA [id number] [address] Platelet mean volume (Bld) [Entitic vol] 9.8 fL Normal 9.0-12.7 [facility] Comment on above: Order Comment: Speci men Type: BLOOD SPECIMEN Performed By: #### 5 7021-8 ####[facility]ORATORYCLIA [id number] [address] Platelets (Bld) [#/Vol] 251 10*3/uL Normal 150-400 [facility] Comment on above: Order Comment: Speci men Type: BLOOD SPECIMEN Performed By: #### 5 7021-8 ####[facility]ATORYCLIA [id number] [address] RBC (Bld) [#/Vol] 4.10 10*6/uL Low 4.20-6.00 [facility] Comment on above: Order Comment: Speci men Type: BLOOD SPECIMEN Performed By: #### 5 7021-8 ####[facility]ORATORYCLIA [id number] [address] WBC (Bld) [#/Vol] 8.25 10*3/uL Normal 3.70-11.00 [facility] Comment on above: Order Comment: Speci men Type: BLOOD SPECIMEN Performed By: #### 5 7021-8 ####[facility]ORATORYCLIA [id number] [address] CONSULTon 05-31-2021 CONSULT Normal [facility] CONSULT Normal [facility] CONSULT Normal [facility] CT BRAIN WO IVCONon 05-31-19 CT BRAIN WO IVCON Normal [facility] CT BRAIN WO IVCON Normal [facility] CT CHEST WO IVCONon 01-25-[address] CHEST WO IVCON Normal [facility] Cortis SerPl-mCncon 05-31-19 22 Cortisol [Mass/Vol] 31.0 ug/dL High AM: 5.3-22.5, PM: 3.4-16.8 [facility] Comment on above: Order Comment: Speci men Type: BLOOD SPECIMEN Result Comment: Prov ided reference range is from 6-10 AM sample collection time.Cortisol Reference Range: 6-10 AM = 4.8-19.5 ug/dL, 4-8 PM = 2.5-11.9 ug/dL Performed By: #### 2 143-6, 3016-3 ####[facility]ORATORYCLIA [id number] [address] Cryptoc Ag Spec Ql LAon 05-08 Cryptococcus sp Ag LA Ql (Unsp spec) Negative Normal [facility] Comment on above: Performed By: #### 4 3228-6 ####[facility]ORATORYCLIA [id number] [address] HISTORY PHYSICALon HISTORY PHYSICAL Normal [facility] Magnesium [facility] 05-31 Magnesium [Mass/Vol] 2.2 mg/dL Normal 1.7-2.3 [facility] Comment on above: Order Comment: Speci men Type: BLOOD SPECIMEN Performed By: #### 2 777-1, 33853-7, ####[facility]ORATORYCLIA [id number] [address] NURSING PROGon 05-31-2021 NURSING PROG Normal [facility] NUTRITIONon 05-31-2021 NUTRITION Normal [facility] OPERATIVE NOon 05-31-2021 OPERATIVE NO Normal [facility] Phosphate SerPl-mCncon 05-31 Phosphate [Mass/Vol] 3.3 mg/dL Normal 2.7-4.8 [facility] Comment on above: Order Comment: Speci men Type: BLOOD SPECIMEN Performed By: #### 2 777-1, 83394-4, ####[facility]ORATORYCLIA [id number] [address] STAPH AUREUS PCRon 2 S. aureus and MRSA panel MEGAN+probe (Nose) Normal Negative [facility] Comment on above: Order Comment: Speci men Type: SWAB OF INTERNAL NOSE Result Comment: Nega tive for Staphylococcus aureus by PCR.Negative for MRSA by PCR Performed By: #### S APCR ####[facility]ORATORYCLIA [id number] [address] [place] TSH SerPl-aCncon 05-31-2021 TSH Qn 0.829 m[IU]/L Normal 0.270-4.200 [facility] Comment on above: Order Comment: Speci men Type: BLOOD SPECIMEN Performed By: #### 2 143-6, 3016-3 ####[facility]ORATORYCLIA [id number] [address] [place] XR CHEST 1V FRONTALon 2021 XR CHEST 1V FRONTAL Normal [facility] XR CHEST 1V FRONTAL Normal [facility] Blood Cultureon 05-30-2021 Bacteria identified Cx Nom (Bld) Culture Result - No growth 5 days Normal [facility] Comment on above: Performed By: #### C AD #### [facility] [place] [id number] [place] [address] Bacteria identified Cx Nom (Bld) Sp. Request/Comment: - 8.2MLS Culture Result - No growth 5 days Normal [facility] Comment on above: Performed By: #### C AD #### [facility] [address] [place] [id number] [place] [address] C-Reactive Proteinon 022 C-Reactive Protein 1.7 mg/dL High <0.9 [facility] Comment on above: Performed By: #### C RP ####[place] [id number] CNDSon 05-30-2021 [facility] HNO ID: [id number] Author: Columba Carroll PA-C Service: Hospital Medicine Author Type: Physician Ruching Machine Operator Type: Discharge Summary Filed: 05/30/2021 12:49 PM Note Text: ----- Attestation signed by Ayaka Menjivar MD at 06/01/2021 12:53 PM Attending Note I have personally reviewed the SANIA/JOSE note. Agree with above assessment and plan. Other additions or changes: None SIGNATURE: Ayaka Menjivar MD DATE: June 01, 2021 TIME: 12:53 PM ----- DISCHARGE SUMMARY PATIENT NAME: Andrew Sifuentes ADMISSION DATE: 05/29/2021 DISCHARGE DATE: 05/30/2021 ATTENDING PHYSICIAN: Ayaka Menjivar MD Code Status: Not on file Highest Readmission Risk Score: 13 The 30 day readmissions risk score is derived from an internally validated risk model which evaluates patient level characteristics, utilization history, medication orders and lab results up until the day of discharge. Patients with a score of 40 or above are considered highest risk for readmission. Specific patient level drivers will be listed at the bottom of the summary. CONSULTING TEAMS DURING HOSPITALIZATION: Neurology Dr. Mendoza Treatment Team: Attending Provider: Ayaak Menjivar MD Physician Ruching Machine Operator: Columba Carroll PA-C Consulting: Lilo Mendoza MD REASON FOR HOSPITALIZATION: Confusion and weakness after falling DIAGNOSIS: Principal Problem: Fall POA: Unknown Active Problems: Venous insufficiency POA: Yes Obstructive hydrocephalus (HCC) POA: Yes Disorientation POA: Unknown Resolved Problems: * No resolved hospital problems. * Sepsis Ruled Out OPERATIONS DURING HOSPITALIZATION: None PROCEDURES DURING HOSPITALIZATION: No procedures performed HOSPITAL COURSE: Patient was admitted to the ED 05/29/21 due to a fall. He lives at home by himself. He does not remember how he fell or who called EMS, but he was unable to get up on his own. He has a history of an intracranial shunt with multiple revisions and complications. Patients normal baseline is AAO x3. Upon arrival patient was tachycardic, slightly febrile to 99F, and had swelling of bilateral feet. Patient was AAO x3 but confused about why he was at the ED. A CXR, CT brain, and CT spine showed no abnormalities. Labs and urinalysis were WNL. Patient was admitted for weakness and unable to get out of bed after a fall. Once admitted, patient became AAO x 1-2. Overnight he became unresponsive to questions, and only answered after tactile stimuli. Patient was otherwise hemodynamically stable. Patient was then lethargic and confused, only aroused to painful stimuli. He was able to state his name but did so with eyes closed. Patient was found shivering, diaphoretic, and his arms floating in the air. Blood cultures were ordered along with CRP 1.7, troponin <0.01, and Cr pending. Patient was placed on tele and neurology was consulted. Neurology suggested empiric abx coverage for CORNER FORMER infection Rocephin and Vancomycin was started. Tele-neuro also suggested an MRI brain be obtained prior to LP to check SUPERVISOR POST WAVE shunt and decrease risk of herniation in neurosurgery capable facility. Transfer to [facility] requested. Sepsis lactate was 1.3. ABG showed pO2 67.8, placed patient on 2L NC.Follow B1, B12, and RPR pending. Transitions of Care Critical Issues: - patient transferred for [facility] for management of possible CORNER FORMER infection and herniation. LABS AND PROCEDURES PENDING AT DISCHARGE: Lab Results (B1, B12, RPR, blood cultures) PATIENT CONDITION AT DISCHARGE: Stable DISCHARGE DISPOSITION: Transfer to higher care level. Facility w/ neurosurgery capable Discharge Physical Exam: VITAL SIGNS: BP 155/97 Pulse 104 Temp 36.7 ?C (98.1 ?F) (Axillary) Resp 24 Wt 123.7 kg (272 lb 11.3 oz) SpO2 94% BMI 40.27 kg/m? Physical Exam Performed: GENERAL: Drowsy, reacting to stimuli HEART: regular rate and rhythm, no murmur, gallop or rub, normal, S1, S2 LUNGS: clear to auscultation and no rales or wheezing. ABDOMEN: Soft, nontender, bowel sounds normal, no palpable organomegaly EXTREMITY: B/L LE mild erythematous and swelling. ? PAD NEURO: Sensation grossly intact, Cranial nerves II-XII intact PULSES: 2+ radial WOUND/SURGICAL SITE CARE: None DIET: Regular ACTIVITY: Resume pre-hospital activity ALLERGIES Allergen Reactions - Alcohol Rash, Hives, Other: See Comments Chest pain,red face,hot. - Latex Rash DISCHARGE MEDICATION: Current Discharge Medication List START taking these medications acetaminophen (TYLENOL) 650 mg Take 650 mg by mouth every 6 hours as needed for pain. cefTRIAXone (ROCEPHIN) 1 g Inject 1 g intravenously every 24 hours. enoxaparin (LOVENOX) 40 mg Inject 40 mg subcutaneously q 24 HR. vancomycin 1.8555 g in D5W 500 mL (VANCOCIN) 1.8555 g Inject 1.8555 g intravenously q 1 (more content not included)... [facility] CONSULTon 05-30-2021 CONSULT HNO ID: [id number] Author: Juan Carlos Mckenzie MD Service: Infectious Disease Author Type: Physician Type: Consults Filed: 05/30/2021 2:58 PM Note Text: INFECTIOUS DISEASE INITIAL CONSULT SERVICE DATE: 05/30/2021 SERVICE TIME: 2:47 PM REASON FOR CONSULT: Encephalopathy Subjective Patient is seen at the request of Dr menjivar. My final recommendations will be communicated back to the requesting physician by way of copy of this note or shared electronic medical record. HPI: Andrew Sifuentes who is a 71 year old male admitted from the ED 05/29/21 due to a fall. He lives at home by himself. He does not remember how he fell or who called EMS, but he was unable to get up on his own. He has a history of an intracranial shunt with multiple revisions and complications. Patients normal baseline is AAO x3. Upon arrival patient was tachycardic, slightly febrile to 99F, and had swelling of bilateral feet. Patient was AAO x3 but confused about why he was at the ED. A CXR, CT brain, and CT spine showed no abnormalities. Labs and urinalysis were WNL. Patient was admitted for weakness and unable to get out of bed after a fall. ? Once admitted, patient became AAO x 1-2. Overnight he became unresponsive to questions, and only answered after tactile stimuli. Patient was otherwise hemodynamically stable. Patient was then lethargic and confused, only aroused to painful stimuli. He was able to state his name but did so with eyes closed. Patient was found shivering, diaphoretic, and his arms floating in the air. Blood cultures were ordered along with CRP 1.7, troponin <0.01, and Cr pending. Patient was placed on tele and neurology was consulted. PAST MEDICAL HISTORY Diagnosis Date - Asthma - Intracranial shunt - PE (pulmonary embolism) PAST SURGICAL HISTORY Procedure Laterality Date - BRAIN SURGERY HX Social History Tobacco Use - Smoking status: Never Smoker - Smokeless tobacco: Never Used Vaping Use - Vaping Use: Never used Substance Use Topics - Alcohol use: No - Drug use: Never No family history on file. Immunization History Administered Date(s) Administered COVID-19 vaccine, full dose (MODERNA) 08/22/2020 09/16/2020 04/06/2021 Current Facility-Administered Medications Medication Dose Route Frequency - acetaminophen 650 mg tab(s) (TYLENOL) 650 mg ORAL q 6 H PRN - enoxaparin 40 mg injection (LOVENOX) 40 mg SUBCUTANEOUS q 24 HR - NaCl 0.9% iv flush bag 20 mL INTRAVENOUS PRN - sodium chloride 0.9 % (flush) 3-5 mL (BD POSIFLUSH) 3-5 mL INTRAVENOUS q 12 H - vancomycin 1.75 g in D5W 500 mL (VANCOCIN) 0.015 g/kg/dose INTRAVENOUS q 12 HR - cefTRIAXone 1 g in D5W 100 mL MB+ (ROCEPHIN) 1 g INTRAVENOUS q 24 H - vancomycin dosing and monitoring per pharmacy OTHER As Directed ALLERGIES Allergen Reactions - Alcohol Rash, Hives, Other: See Comments Chest pain,red face,hot. - Latex Rash REVIEW OF SYSTEMS: ROS checked in details x 10 systems and is negative except as noted in the HPI. All qs answered. Objective PHYSICAL EXAM: Temp (24hrs), Av.1 ?C (98.7 ?F), Min:36.6 ?C (97.9 ?F), Max:37.9 ?C (100.2 ?F) BP 155/97 Pulse 104 Temp 36.7 ?C (98.1 ?F) (Axillary) Resp 24 Wt 123.7 kg (272 lb 11.3 oz) SpO2 94% BMI 40.27 kg/m? Constitutional: General: He is not in acute distress. Appearance: Normal appearance. Comments: AxOx1 -2 HENT: Head: Normocephalic and atraumatic. Right Ear: External ear normal. Left Ear: External ear normal. Nose: Nose normal. No congestion. Eyes: Extraocular Movements: Extraocular movements intact. Pupils: Pupils are equal, round, and reactive to light. Cardiovascular: Rate and Rhythm: Normal rate and regular rhythm. Heart sounds: No murmur heard. Pulmonary: Effort: Pulmonary effort is normal. Breath sounds: No wheezing. Abdominal: General: Abdomen is flat. Bowel sounds are normal. There is no distension. Palpations: Abdomen is soft. There is no mass. Tenderness: There is no abdominal tenderness. There is no guarding or rebound. Musculoskeletal: Cervical back: Normal range of motion and neck supple. Skin: General: Skin is warm and dry. Coloration: Skin is not jaundiced. Neurological: Mental Status: lethargic, confused, no meaningful interaction, eyes closed, didn't open his eyes to verbal or noxious stimuli. No spontaneous speech. He did smile per command but didn't follow other commands. Oriented x 0. DATA: Diagnostic tests reviewed for today's visit: CT BRAIN WO IVCON IMPRESSION: Head CT: No acute abnormality. Cervical CT: No acute abnormality. Anatomic Variant: None. Assume 7 cervical vertebrae with counting from the craniocervical junction. [employer] Worker: [employer] Transcribe Date/Time: May 29 2021 8:59P Dictated by : CARLOS YOUNGER MD This examination was interpreted and the report reviewed and electronically signed by: CARLOS YOUNGER MD on May 29 2021 9:14PM EST ? CT CERVICAL SPINE WO (more content not included)... Normal [facility] CONSULT HNO ID: [id number] Author: Lilo Mendoza MD Service: Neurology General Author Type: Physician Type: Consults Filed: 05/30/2021 10:56 AM Note Text: [facility] TeleNeurology Consult Note Patient seen using [facility]. Recommendations are placed in the chart. Please review. For questions after hours, when teleneurologist is not available, for [place]: Please Page [phone] for the [facility] from 12pm to 8Am Admitting Provider/Consulted by:Hermes Roca MD Time of Note:05/30/2021 Patient Name:Andrew Sifuentes Admit Date:05/29/2021 Hospital Day:0 CC: altered mental status History of Present Illness: Andrew Sifuentes is a 71 year old unknown handed male with limited information about past medical history including venous insufficiency s/p EVLT, hydrocepalus s/p SUPERVISOR POST WAVE shunt in 1987 with multiple revisions and complications who presents with altered mental status and presumed falls. Patient is lethargic, shivering, not answering questions nor following commands. Primary team is looking for source of infection. He is unable to provide any history about falls. ? Prior to Admission medications : Medication Zinc 50 mg tab, Sig Take by mouth., Start Date , End Date , Taking? , Authorizing Provider [facility] Provider Medication Ginseng 100 mg cap, Sig Take 2 capsules by mouth once daily., Start Date , End Date , Taking? , Authorizing Provider [facility] Provider Medication bumetanide (BUMEX ORAL), Sig Take 2 mg by mouth once daily. , Start Date , End Date , Taking? , Authorizing Provider [facility] Provider Medication POTASSIUM ORAL, Sig Take 20 mEq by mouth once daily. , Start Date , End Date , Taking? , Authorizing Provider [facility] Provider Medication cephALEXin (KEFLEX) 500 mg capsule, Sig Take 1 capsule by mouth three times daily., Start Date 11/13/19, End Date , Taking? , Authorizing Provider Soheila Lewis Medication Calcium-Cholecalciferol, D3, (CALCIUM 500 + D) 500 mg(1,250mg) -400 unit per tablet, Sig Take 1 tablet by mouth once daily., Start Date , End Date , Taking? , Authorizing Provider [facility] Provider Medication GINKGO BILOBA (GINKOBA ORAL), Sig Take by mouth., Start Date , End Date , Taking? , Authorizing Provider [facility] Provider Medication meclizine 25 mg Tab, Sig Take 1 tablet by mouth three times daily as needed., Start Date 10/09/12, End Date , Taking? , Authorizing Provider Tosha Cox Medication methylPREDNISolone (MEDROL, JADYN,) 4 mg tablet, Sig take as instructed on package insert, Start Date 10/09/12, End Date , Taking? , Authorizing Provider Tosha Cox Medication aspirin 81 mg chewable tablet, Sig Take 1 tablet by mouth once daily., Start Date 08/14/12, End Date , Taking? , Authorizing Provider Bri Jay Medication PENTOXIFYLLINE ORAL, Sig Take by mouth., Start Date , End Date , Taking? , Authorizing Provider [facility] Provider Medication baclofen 10 mg tablet, Sig Take 10 mg by mouth daily at bedtime., Start Date , End Date , Taking? , Authorizing Provider [facility] Provider Current Inpatient Medications: Scheduled meds: Current Facility-Administered Medications Medication Dose Route Frequency Provider Last Rate Last Admin - bumetanide 1 mg tab(s) (BUMEX) 1 mg ORAL DAILY Hermes Roca MD - acetaminophen 650 mg tab(s) (TYLENOL) 650 mg ORAL q 6 H PRN Hermes Roca MD - enoxaparin 40 mg injection (LOVENOX) 40 mg SUBCUTANEOUS q 24 HR Hermes Roca MD 40 mg at 05/30/21 0130 - NaCl 0.9% iv flush bag 20 mL INTRAVENOUS PRN Hermes Roca MD - sodium chloride 0.9 % (flush) 3-5 mL (BD POSIFLUSH) 3-5 mL INTRAVENOUS q 12 H Hermes Roca MD 5 mL at 05/30/21 0916 PAST MEDICAL HISTORY Diagnosis Date - Asthma - Intracranial shunt - PE (pulmonary embolism) PAST SURGICAL HISTORY Procedure Laterality Date - BRAIN SURGERY HX Social History Tobacco Use - Smoking status: Never Smoker - Smokeless tobacco: Never Used Vaping Use - Vaping Use: Never used Substance Use Topics - Alcohol use: No - Drug use: Never No family history on file. ALLERGIES Allergen Reactions - Alcohol Rash, Hives, Other: See Comments Chest pain,red face,hot. - Latex Rash REVIEW OF SYSTEMS: Unable to obtain. PHYSICAL EXAM: Performed over the teleneurology video Assisted by the teleneurology nurse at patient bedside BP 128/67 Pulse 84 Temp 36.8 ?C (98.2 ?F) (Axillary) Resp 18 Wt 123.7 kg (272 lb 11.3 oz) SpO2 98% BMI 40.27 kg/m? General Appearance: lethargic, eyes closed. shivering Neurological: limited by AMS ? Mental Status: lethargic, confused, no meaningful interaction, eyes closed, didn't open his eyes to verbal or noxious stimuli. No spontaneous speech. He did smile per command but didn't follow other commands. Oriented x 0. - Cranial Nerves: - Pupils OD 2-3mm, OS 2-3mm, equal, round and reactive to light, - Facial muscles symmetric ? Motor Exam: Antigravity in UEs, some movement in LEs. ? Reflexes Right Lef (more content not included)... [facility] CONSULT PROGon 05-30-2021 CONSULT PROG [facility] CONSULT PROG HNO ID: [id number] Author: Shannon Gutierres [facility] Service: Pharmacy Author Type: Pharmacist Type: Consult Progress Note Filed: 05/30/2021 2:35 PM Note Text: PHARMACY VANCOMYCIN DOSING NOTE Patient Name: Andrew Sifuentes Admission Date: 05/29/2021 Date of Consult: 05/30/2021 Time of Consult: 2:32 PM Indication: possible CORNER FORMER infection Goal Range: 15-20 mcg/mL RECOMMENDATIONS/PLAN: Pharmacy consulted for vancomycin dosing for Andrew Sifuentes, a 71 year old, male who is being treated with vancomycin. 1. Patient is currently ordered Vancomycin 1.75 g q 24h. Today is day 1 of therapy. 2. No vancomycin level has been drawn for this dosing regimen. 3. Will adjust vancomycin to 1.75 g with a dosing interval of q12h based on patient's weight of 123.7 kg and CrCl of 105.4 ml/min. 4. The next vancomycin level will be ordered for 06/01 unless clinically indicated sooner. (Pharmacy will order) We will follow patient renal function, vancomycin levels and doses with you during the course of therapy. Additional recommendations will appear in follow up notes. If you have any questions, please contact inpatient pharmacy at [phone]. Age: [age] year old Allergies: ALLERGIES Allergen Reactions - Alcohol Rash, Hives, Other: See Comments Chest pain,red face,hot. - Latex Rash Last 3 Encounter Wt Readings: Date: Wt: 05/29/2021 123.7 kg (272 lb 11.3 oz) 03/19/2020 120.8 kg (266 lb 6.4 oz) 01/30/2020 121.7 kg (268 lb 3.2 oz) Last 1 Encounter Ht Readings: Date: Ht: 12/17/2019 175.3 cm (5' 9) CrCl: 105.4 mL/min (adjusted BW) Temp (24hrs), Av.1 ?C (98.7 ?F), Min:36.6 ?C (97.9 ?F), Max:37.9 ?C (100.2 ?F) - Current Temp: 36.7 ?C (98.1 ?F) Labs BUN (mg/dL) Date Value 05/29/2021 11 05/29/2021 11 11/17/2019 14 Creatinine (mg/dL) Date Value 05/30/2021 0.86 05/29/2021 0.89 05/29/2021 0.75 WBC Date Value 05/29/2021 10.77 k/uL 11/17/2019 6.52 k/uL 04/14/2013 5.8 thou/cmm Vancomycin Levels: No results found for: IMANI Gutierres [facility] Normal [facility] Creatinineon 05-30-2021 Creatinine [Mass/Vol] 0.86 mg/dL Normal 0.73-1.22 [facility] Comment on above: Performed By: #### C RET1 ####[facility] [id number] [place] [phone] eGFR- Amer. >60 Normal [facility] Comment on above: Performed By: #### C RET1 ####[facility] [phone] eGFR-All Other Races >60 Normal [facility] Comment on above: Result Comment: eGFR (Estimated GFR) Units of measure: mL/min/1.73 meters squared eGFR is derived from the reexpressed MDRD Study equation using the following parameters: serum creatinine, age, gender and race. The creatinine assay has been calibrated to be traceable to IDMS. An eGFR <60 mL/min/1.73m2 for >3 months is consistent with chronic kidney disease. Refer to KDOQI guidelines for clinical interpretation. In patients with unstable renal function, e.g. those with acute kidney injury, the eGFR may not accurately reflect actual GFR. Note: On 07/02/2021, the eGFR calculation will be updated to the NKF-ASN Task Force recommended 2020 CKD-EPI creatinine equation which does not include a race variable. For more information or to access a 2020 CKD-EPI calculator, visit the National Kidney Foundation website at kidney.org/professionals/kdoqi/gfr_calculator. Performed By: #### C RET1 ####[facility] [id number] [place] [phone] Crypto Antigen Deton 022 Crypto Antigen Det Sp. Request/Comment: - SST Test Result - Duplicate request Account Credited [facility] Comment on above: Performed By: #### C AD #### [facility] [address] [place] [address] [place] [address] Crypto Antigen Det Sp. Request/Comment: - SST Test Result - Cryptococcal antigen detection result: Negative By latex agglutination [facility] Comment on above: Performed By: #### C AD #### [facility] [address] [place] [address] [place] [address] ED NOTEon 05-30-2021 ED NOTE HNO ID: [id number] Author: Aletha Lopez RN Service: ? Author Type: Registered Nurse Type: ED Notes Filed: 05/29/2021 11:16 PM Note Text: Patient changed for incontinent urine, labs redrawn and sent. Patient aware of plan to be admitted and agrees with plan [facility] HISTORY PHYSICALon HISTORY PHYSICAL Normal [facility] HISTORY PHYSICAL HNO ID: [id number] Author: Hermes Roca MD Service: Hospital Medicine Author Type: Physician Type: HANDP Filed: 05/30/2021 1:03 AM Note Text: DEPARTMENT OF HOSPITAL MEDICINE HISTORY AND PHYSICAL EXAM SERVICE DATE: 05/29/2021 SERVICE TIME: 11:18 PM Primary Care Physician: Mateus Burris MD NIGHT AND WEEKEND COVERAGE: Please page [phone] until 7:30am this morning. After 7:30am please check the treatment team banner and page the appropriate service. 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 with multiple revisions and complications who presents with fall History is limited by patient mental status (drowsy and noncooperative) History acquired from EMR, unable to reach family Patient brought from home by EMS for a fall, alone, does not recall falling down Answers his name and says he is sleepy but otherwise history is limited ED COURSE BP 125/82 Pulse 100 Temp (Src) 99 (Oral) Resp 21 Wt 280 lb (127.0kg) SpO2 93% O2 Therapy: Room Air Labs Reviewed COMP METABOLIC PANEL - Abnormal; Notable for the following components: Result Value Glucose 112 (*) All other components within normal limits CBC + DIFF - Abnormal; Notable for the following components: Hemoglobin 12.7 (*) RDW-CV 15.5 (*) Abs Neut (ANC) 7.86 (*) All other components within normal limits URINALYSIS - Abnormal; Notable for the following components: Appearance (U) Slightly Cloudy (*) pH, Urine 8.5 (*) All other components within normal limits NT PRO BNP - Abnormal; Notable for the following components: NT Pro BNP 303 (*) All other components within normal limits COMP METABOLIC PANEL - Abnormal; Notable for the following components: Glucose 120 (*) All other components within normal limits TROPONIN T MAGNESIUM BLD TROPONIN T CEPHEID BILL ONLY (EXCFR) EXPEDITED COVID, FLU A/B + RSV CXR No radiographic evidence of acute cardiopulmonary disease. CT brain No acute abnormality. CT cervical spine No acute abnormality. PAST MEDICAL HISTORY Diagnosis Date - Asthma - Intracranial shunt - PE (pulmonary embolism) PAST SURGICAL HISTORY Procedure Laterality Date - BRAIN SURGERY HX No family history on file. Social History Tobacco Use - Smoking status: Never Smoker - Smokeless tobacco: Never Used Vaping Use - Vaping Use: Never used Substance Use Topics - Alcohol use: No - Drug use: Never PRIOR TO ADMISSION MEDICATIONS: Current Outpatient Medications Medication Instructions - aspirin 81 mg, ORAL, DAILY - baclofen (LIORESAL) 10 mg, AT BEDTIME - bumetanide (BUMEX ORAL) 2 mg, ORAL, DAILY - Calcium-Cholecalciferol, D3, (CALCIUM 500 + D) 500 mg(1,250mg) -400 unit per tablet 1 tablet, DAILY - cephALEXin (KEFLEX) 500 mg, ORAL, 3 TIMES DAILY - GINKGO BILOBA (GINKOBA ORAL) Take by mouth. - Ginseng 100 mg cap 2 capsules, ORAL, DAILY - meclizine (ANTIVERT) 25 mg, ORAL, 3 TIMES DAILY NEEDED - methylPREDNISolone (MEDROL, JADYN,) 4 mg tablet take as instructed on package insert - PENTOXIFYLLINE ORAL Take by mouth. - POTASSIUM ORAL 20 mEq, ORAL, DAILY - Zinc 50 mg tab ORAL ALLERGIES Allergen Reactions - Alcohol Rash, Hives, Other: See Comments Chest pain,red face,hot. - Latex Rash REVIEW OF SYSTEM: Review of Systems Unable to perform ROS: Mental status change Objective PHYSICAL EXAM: BP 125/82 Pulse 100 Temp (Src) 99 (Oral) Resp 21 Wt 280 lb (127.0kg) SpO2 93% O2 Therapy: Room Air Physical Exam Constitutional: General: He is not in acute distress. Appearance: Normal appearance. Comments: AxOx1 -2 HENT: Head: Normocephalic and atraumatic. Right Ear: External ear normal. Left Ear: External ear normal. Nose: Nose normal. No congestion. Eyes: Extraocular Movements: Extraocular movements intact. Pupils: Pupils are equal, round, and reactive to light. Cardiovascular: Rate and Rhythm: Normal rate and regular rhythm. Heart sounds: No murmur heard. Pulmonary: Effort: Pulmonary effort is normal. Breath sounds: No wheezing. Abdominal: General: Abdomen is flat. Bowel sounds are normal. There is no distension. Palpations: Abdomen is soft. There is no mass. Tenderness: There is no abdominal tenderness. There is no guarding or rebound. Musculoskeletal: Cervical back: Normal range of motion and neck supple. Skin: General: Skin is warm and dry. Coloration: Skin is not jaundiced. Neurological: General: No focal deficit present. Mental Status: He is alert. Sensory: No sensory deficit. Motor: No weakness. Lines, Drains, and Airways Line Peripheral 05/29/21 1900 Admission to Hospital Short Left Hand 20 Gauge <1 day Drain Indwelling Urinary Catheter 05/29/212199 Assessment 16 Fr <1 day DATA: Diagnostic tests reviewed for today's visit: Most recent labs Most recent imaging (more content not included)... Normal [facility] Magnesium SerPl-mCncon 05-30 Magnesium [Mass/Vol] 2.5 mg/dL High 1.7-2.3 [facility] Comment on above: Order Comment: Speci men Type: BLOOD SPECIMEN Performed By: #### 1 9123-9, 2777-1 ####[facility]ORATORYCLIA [id number] [place] [id number] [facility] NURSING PROGon 05-30-2021 NURSING PROG HNO ID: [id number] Author: Precious Cervantes RN Service: ? Author Type: Registered Nurse Type: Nursing Progress Note Filed: 05/30/2021 11:26 AM Note Text: Nursing Progress Note Patient Name: Andrew Sifuentes Patient Location: [place] [address] [address] Daily Note: 0700- Report received from manager shift RN, patient resting in bed at this time, call light within reach, bed low and locked. Asked the patient to state his name because manager shift RN was unable to complete his admission r/t mentation. Sister Triny stated that the patient is normally AANDOx3 at baseline. I had to sternal rubbed the patient in order to get him to respond. Stated his name was Eric and went back to sleep. 09- Attempted to assess the patient and administer medications, patient arouses to painful stimuli only. VS stable at this time. Page out to hospitalist regarding the patients mentation. As I completed my assessment the pt had slight tremor of arms and legs, moaning in his sleep and his arms are floating aimlessly in the air. Spoke to Columba LUI, orders received for labs, placed patient on tele, and consulted neuro. Will continue to monitor. 112- Patient removed IV. Replaced and started Rocephin. ABG resulted PO2 of 67.8. Placed on 2L NC O2 sat @ 96%. Patient diaphoretic, VS remain stable. Patient unable to respond to questioning other than telling me his first name. Will continue to monitor. This note was completed by: Precious Cervantes [facility] NURSING PROG HNO ID: [id number] Author: Lyubov Day RN Service: ? Author Type: Registered Nurse Type: Nursing Progress Note Filed: 05/30/2021 1:27 AM Note Text: Nursing Progress Note Patient Name: Andrew Sifuentes Patient Location: [place] [id number]: Patient is unresponsive to questions. Patient will only answer a few questions after tactile stimulation. Patient is uncooperative. Unable to complete admission assessment at this time due to noncompliance with questioning. Pt states he is tired. Dr. Reardon at bedside. Neuro exam unremarkable. VSS stable. No new orders at this time. Patient is stable, resting comfortably in bed. This note was completed by: Lyubov Day [facility] Phosphate SerPl-mCncon 05-30 Phosphate [Mass/Vol] 3.5 mg/dL Normal 2.7-4.8 [facility] Comment on above: Order Comment: Speci men Type: BLOOD SPECIMEN Performed By: #### 1 9123-9, 2777-1 ####[facility] LABORATORYCLIA [id number] [place] [address] [place] Sepsis Lactateon 05-30-2021 Sepsis Lactate 1.5 mmol/L Normal 0.5-2.0 [facility] Comment on above: Performed By: #### S LACT ####[facility] [address] [place], [place] [phone] Syphilis Ttl w/Reflxon 05-30 Syphilis Interp Cannot exclude recen t Treponemal infection if specimen collected within 7 to 10 days after appearance of suspect lesions or 2 to 3 weeks after an exposure. Clinical correlation is required. Normal [facility] Comment on above: Performed By: #### S ALEMXSAMUEL ####[facility] [address] [place], [place] [phone] Syphilis Screen Rslt Non-Reactive Normal Non Reactive [facility] Comment on above: Performed By: #### S YPHTX B1WB ####[facility] [address] [place], [place] [phone] THERAPY NTon 05-30-2021 THERAPY NT HNO ID: [id number] Author: RADHA Andres/Felecia Service: Occupational Therapy Author Type: Occupational Therapist Type: Therapy (PT/OT/Speech/Resp) Filed: 05/30/2021 10:29 AM Note Text: OCCUPATIONAL THERAPY MISSED VISIT SERVICE DATE: 05/30/2021 SERVICE TIME: 1017 to 1019 ROOM: [place] [address] Attempted Evaluation. Patient not seen due to Not following commands. Per nursing patient was seen by neuro and they are talking about having him transferred to [facility] secondary to shunt concerns. Will re attempt in the event patient continues to be admitted at [facility] and is able to participate. SIGNATURE: RADHA Andres/L PATIENT NAME: Andrew Sifuentes DATE: May 30, 2021 TIME: 10:21 AM [facility] THERAPY NT HNO ID: [id number] Author: Bette Velasquez PT Service: Physical Therapy Author Type: Physical Therapist Type: Therapy (PT/OT/Speech/Resp) Filed: 05/30/2021 8:42 AM Note Text: PHYSICAL THERAPY MISSED VISIT SERVICE DATE: 05/30/2021 SERVICE TIME: 0840 to 0840 ROOM: [place] [address] Attempted Evaluation. Patient not seen due to (pt difficult to awake per RN, very lethargic). Will re-attempt when schedule permits. SIGNATURE: Bette Velasquez PT PATIENT NAME: Andrew Sifuentes DATE: May 30, 2021 TIME: 8:41 AM [facility] Toxicology Screen,Uron 05-30 Amphetamines, Urine Negative Normal Negative [facility] Comment on above: Result Comment: Cuto ff threshold at 1000 ng/mL. Performed By: #### C AD #### [facility] [address] [place] [phone] [facility] [address] [place] [address] Barbiturates, Urine Negative Normal Negative [facility] Comment on above: Result Comment: Cuto ff threshold at 200 ng/mL. Performed By: #### C AD #### [facility] [address] [place] [phone] [facility] [address] [place] [phone] Benzodiazepines, Ur Negative Normal Negative [facility] Comment on above: Result Comment: Cuto ff threshold at 200 ng/mL. Performed By: #### C AD #### [facility] [address] [place] [phone] [facility] [address] [place] [address] Cannabinoids, Urine Negative Normal Negative [facility] Comment on above: Result Comment: Cuto ff threshold at 50 ng/mL. Performed By: #### C AD #### [facility] [address] [place] [phone] [facility] [address] [place] [phone] Cocaine, Urine Negative Normal Negative [facility] Comment on above: Result Comment: Cuto ff threshold at 300 ng/mL. Performed By: #### C AD #### [facility] [address] [place] [phone] [facility] [address] [place] [address] Opiates, Urine Negative Normal Negative [facility] Comment on above: Result Comment: Cuto ff threshold at 300 ng/mL. Performed By: #### C AD #### [facility] [address] [place] [phone] [facility] [address] [place] [address] Oxycodone, Urine Negative Normal Negative [facility] Comment on above: Result Comment: Cuto ff threshold at 100 ng/mL. Comment: Immunoassay screen only. Cross reactivity with other substances can occur with immunoassay screening. Detection of any drug(s) in this urine toxicology panel is presumptive only. These tests are for medical purposes only and should not be used for compliance monitoring, legal, or forensic use. Samples should be within normal physiological conditions (e.g. pH). This assay does not include adulteration/specimen validity testing. In clinical settings, confirmatory testing is at the practitioner's discretion [1]. If clinically indicated, confirmation by high specificity, quantitative methodology, which includes adulteration/specimen validity testing, may be requested on the same specimen through Client Services ([phone]) if contacted within 48 hours of initial testing. [1]Substance Abuse and Mental Health Services Administration (2012). Clinical Drug Testing in Primary Care Technical Assistance Publication Series 32. Department of Health and Human Services, [place], p.10. Performed By: #### C AD #### [facility] [address] [place] [phone] Phencyclidine, Urine Negative Normal Negative [facility] Comment on above: Result Comment: Cuto ff threshold at 25 ng/mL. Performed By: #### C AD #### [facility] [address] [place] [address] [place] [phone] Troponin Ton 05-30-2021 Troponin T <0.010 Normal 0.000-0.029 [facility] Comment on above: Performed By: #### T NT ####[facility] [address] [place], [place] [phone] Urinalysison 05-30-2021 Bilirubin, Urine Negative Normal Negative [facility] Comment on above: Performed By: #### C AD #### [facility] [address] [place] [phone] Clarity (U) Slightly Cloudy Critically abnormal Clear [facility] Comment on above: Performed By: #### C AD #### [facility] [address] [place] [address] [facility] [address] [place], [place] [address] Color (U) Yellow Normal Yellow [facility] Comment on above: Performed By: #### C AD #### [facility] [address] [place] [address] [facility] [address] [place], [place] [address] Glucose Ql (U) Negative Normal Negative [facility] Comment on above: Performed By: #### C AD #### [facility] [address] [place] [address] [facility] [address] [place], [place] [address] Hemoglobin/Blood,Ur Negative Normal Negative [facility] Comment on above: Performed By: #### C AD #### [facility] [address] [place] [address] [facility] [address] [place], [place] [address] Ketones Ql (U) Negative Normal Negative [facility] Comment on above: Performed By: #### C AD #### [facility] [address] [place] [address] [facility] [address] [place], [place] [address] Leukest Negative Normal Negative [facility] Comment on above: Performed By: #### C AD #### [facility] [address] [place] [address] [facility] [address] [place], [place] [address] Nitrite Ql (U) Negative Normal Negative [facility] Comment on above: Performed By: #### C AD #### [facility] [address] [place] [address] [facility] [address] [place], [place] [address] pH (U) 8.5 [pH] High 5.0-8.0 [facility] Comment on above: Performed By: #### C AD #### [facility] [place] [address] [place] [address] Protein, Urine Negative Normal Negative [facility] Comment on above: Performed By: #### C AD #### [facility] [address] [place], [place] [phone] [place] [address] Specific [place], [place] 1.015 Normal 1.005-1.030 [facility] Comment on above: Performed By: #### C AD #### [facility] [address] [place], [place] [phone] [address] [address] Urobilinogen Qn (U) 0.2 {Marianne'U}/dL Normal 0.2-1.0 [facility] Comment on above: Performed By: #### C AD #### [facility] [address] [place], [place] [address] [place] [address] Vitamin B1, Whole Blon 05-30 Vitamin B1 (TDP), WB 207.1 nmol/L Normal 84.0-213.0 [facility] Comment on above: Result Comment: This assay measures the concentration of thiamine diphosphate (TDP), the primary active form of vitamin B1. Approximately 90 percent of vitamin B1 present in whole blood is TDP. Thiamine and thiamine monophosphate, which comprise the remaining 10 percent, are not measured. This test was developed and its performance characteristics determined by [facility]'s Isrrael Perez [facility] [place] ( [facility]). It has not been cleared or approved by the FDA. [facility] is regulated under CLIA as qualified to perform high complexity testing. This test is used for clinical purposes. It should not be regarded as investigational or for research. Performed By: #### S YPHTX, B1WB ####[facility] [address] [place], [place] [phone] Vitamin B12on 05-30-2021 Cobalamin (Vitamin B12) [Mass/Vol] 494 pg/mL Normal 232-1245 [facility] Comment on above: Performed By: #### C AD #### [facility] [address] [place] [address] [facility] [address] [place], [place] [address] ALLIED HEALTHon 05-29-2021 ALLIED HEALTH HNO ID: [id number] Author: RT Kitty(R) Service: Radiology Author Type: Technologist Type: Allied Health Filed: 05/29/2021 8:51 PM Note Text: Radiology Service Progress Note PATIENT NAME: Andrew Sifuentes DATE OF SERVICE: May 29, 2021 TIME: 8:51 PM PATIENT IDENTITY VERIFICATION COMPLETED USING TWO (2) IDENTIFIERS: Name and Date of confirmed by patient verbally. FALL SCREENING: Has the patient had 2 falls in the last year or 1 fall with injury or currently using an Ambulatory Assistive Device (Walker, Cane, Wheelchair, Crutches, etc.)? No PATIENT GENDER DATA: Male PATIENT RELEVANT IMPLANT DATA REVIEWED: Not Applicable RADIOLOGY DEPARTMENT: General X-ray: Exam(s) Completed: Chest X-Ray PERIPHERAL IV DATA: Not applicable SIGNED BY: RT Kitty(R) May 29, 2021 8:51 PM Normal [facility] HNO ID: [id number] Author: Markie Fish Service: ? Author Type: Stripper Soft Plastic Type: Allied Health Filed: 05/29/2021 8:39 PM Note Text: Radiology Service Progress Note PATIENT NAME: Andrew Sifuentes DATE OF SERVICE: May 29, 2021 TIME: 8:38 PM PATIENT IDENTITY VERIFICATION COMPLETED USING TWO (2) IDENTIFIERS: Name and Date of confirmed by patient verbally and Name and Date of confirmed by identification band. FALL SCREENING: Has the patient had 2 falls in the last year or 1 fall with injury or currently using an Ambulatory Assistive Device (Walker, Cane, Wheelchair, Crutches, etc.)? Emergency Room Patient: Screened in ED PATIENT GENDER DATA: Male PATIENT RELEVANT IMPLANT DATA REVIEWED: Not Applicable RADIOLOGY DEPARTMENT: CT; Exam(s) Completed: Brain and Neck PERIPHERAL IV DATA: Inpatient: see LDA documentation SIGNED BY: Markie Fish May 29, 2021 8:38 PM Normal [facility] CBC and Differentialon 05-29 Abs Baso 0.05 k/uL Normal <0.11 [facility] Comment on above: Performed By: #### C MP, MG1, CBCDIF ####[facility] [address] [place] [address] Abs Alexander 0.72 k/uL Normal <0.87 [facility] Comment on above: Performed By: #### C MP, MG1, CBCDIF ####[place] [address] Abs Neut 7.86 k/uL High 1.45-7.50 [facility] Comment on above: Performed By: #### C MP, MG1, CBCDIF ####[place] [address] Absolute nRBC <0.01 Normal <0.01 [facility] Comment on above: Performed By: #### C MP, MG1, CBCDIF ####[place] [address] Basophils/100 WBC (Bld) 0.5 % [facility] Comment on above: Performed By: #### C MP, MG1, CBCDIF ####[place] [address] DTYPE Auto Diff [facility] Comment on above: Performed By: #### C MP, MG1, CBCDIF ####[place] [address] Eosinophils (Bld) [#/Vol] 0.10 10*3/uL Normal <0.46 [facility] Comment on above: Performed By: #### C MP, MG1, CBCDIF ####[facility] [address] [place] [address] Eosinophils/100 WBC (Bld) 0.9 % [facility] Comment on above: Performed By: #### C MP, MG1, CBCDIF ####[facility] [address] [place] [address] Erythrocyte distribution width (RBC) [Ratio] 15.5 % High 11.5-15.0 [facility] Comment on above: Performed By: #### C MP, MG1, CBCDIF ####[facility] [address] [place] [address] Hematocrit (Bld) [Volume fraction] 41.6 % Normal 39.0-51.0 [facility] Comment on above: Performed By: #### C MP, MG1, CBCDIF ####[facility] [address] [place] [address] Hemoglobin (Bld) [Mass/Vol] 12.7 g/dL Low 13.0-17.0 [facility] Comment on above: Performed By: #### C MP, MG1, CBCDIF ####[facility] [address] [place] [address] Lymphocytes (Bld) [#/Vol] 2.04 10*3/uL Normal 1.00-4.00 [facility] Comment on above: Performed By: #### C MP, MG1, CBCDIF ####[facility] [address] [place] [address] Lymphocytes/100 WBC (Bld) 18.9 % Normal [facility] Comment on above: Performed By: #### C MP, MG1, CBCDIF ####[facility] [address] [place] [address] MCH 27.3 pG Normal 26.0-34.0 [facility] Comment on above: Performed By: #### C MP, MG1, CBCDIF ####[facility] [address] [place] [address] MCHC (RBC) [Mass/Vol] 30.5 g/dL Normal 30.5-36.0 [facility] Comment on above: Performed By: #### C MP, MG1, CBCDIF ####[facility] [address] [place] [address] MCV (RBC) [Entitic vol] 89.5 fL Normal 80.0-100.0 [facility] Comment on above: Performed By: #### C MARÍA ELENA MG1, CBCDIF ####[facility] [phone] Monocytes/100 WBC (Bld) 6.7 % Normal [facility] Comment on above: Performed By: #### C MP, MG1, CBCDIF ####[facility] [address] Neutrophils/100 WBC (Bld) 73.0 % Normal [facility] Comment on above: Performed By: #### C MARÍA ELENA MG1, CBCDIF ####[facility] [address] NRBCs 0.0 /100 WBC Normal 0 [facility] Comment on above: Performed By: #### C MARÍA ELENA MG1, CBCDIF ####[facility] [address] [place], [place] [phone] Platelet mean volume (Bld) [Entitic vol] 10.1 fL Normal 9.0-12.7 [facility] Comment on above: Performed By: #### C MARÍA ELENA MG1, CBCDIF ####[facility] [address] [place], [place] [phone] Platelets (Bld) [#/Vol] 291 10*3/uL Normal 150-400 [facility] Comment on above: Performed By: #### C MARÍA ELENA, MG1, CBCDIF ####[facility] [address] RBC (Bld) [#/Vol] 4.65 10*6/uL Normal 4.20-6.00 [facility] Comment on above: Performed By: #### C MP, MG1, CBCDIF ####[facility] [address] WBC (Bld) [#/Vol] 10.77 10*3/uL Normal 3.70-11.00 [facility] Comment on above: Performed By: #### C MP, MG1, CBCDIF ####[facility] [address] [place] [address] CT BRAIN WO IVCONon 05-29-19 CT BRAIN WO IVCON * * *Final Report* * * DATE OF EXAM: May 29 2021 8:42PM [facility] 0504 - CT BRAIN WO IVCON / PROCEDURE REASON: Head trauma, headache * * * * Physician Interpretation * * * * EXAMINATION: CT CERVICAL SPINE WO IVCON, CT BRAIN WO IVCON CLINICAL HISTORY: C-spine trauma, NEXUS/CCR positive (accession [id number]), Head trauma, headache (accession [id number]) TECHNIQUE: Serial axial unenhanced images were obtained from the vertex to the foramen magnum. Spiral, high resolution axial unenhanced images were obtained from the skull base to the cervicothoracic junction with sagittal and coronal planar reconstructions. Dose-Length Product (DLP): 2132 mGy*cm. CT Dose Reduction Employed: Automated exposure control (AEC) COMPARISON: 08/13/[address] RESULT: BRAIN: Post-operative change: Right parietal approach SUPERVISOR POST WAVE shunt is intact. 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 Acute change: No evidence of an acute infarct or other acute parenchymal process. Hemorrhage: No evidence of acute intracranial hemorrhage. Mass Lesion / Mass Effect: There is no evidence of an intracranial mass or extraaxial fluid collection. No significant mass effect. 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 Parenchyma: There is mild generalized volume loss. Ventricles: Ventriculomegaly when compared to the relatively remote examination from 01/24/2013.. Other: Right maxillary sinus mucus retention cyst. CERVICAL: Counting reference: Craniocervical junction. Anatomic Variants: None. Alignment: Alignment is straightened. Craniocervical junction: Craniocervical junction is normal. Osseous structures/fracture: No evidence of a lytic or blastic process in the visualized spine. No evidence of acute or chronic fracture. Cervical soft tissues: The paraspinal soft tissues planes are maintained. Degenerative changes: Mild multilevel degenerative disc changes. Facet and uncovertebral arthropathy contribute to multilevel mild to moderate foraminal stenosis. IMPRESSION: Head CT: No acute abnormality. Cervical CT: No acute abnormality. Anatomic Variant: None. Assume 7 cervical vertebrae with counting from the craniocervical junction. [employer] Worker: OG Transcribe Date/Time: May 29 2021 8:59P Dictated by : CARLOS YOUNGER MD This examination was interpreted and the report reviewed and electronically signed by: CARLOS YOUNGER MD on May 29 2021 9:14PM EST [id number] [facility] CT CERVICAL SPINE WO IVCONon 05-29-2021 CT CERVICAL SPINE WO IVCON * * *Final Report* * * DATE OF EXAM: May 29 2021 8:42PM [facility] 0505 - CT CERVICAL SPINE WO IVCON / PROCEDURE REASON: C-spine trauma, NEXUS/CCR positive * * * * Physician Interpretation * * * * EXAMINATION: CT CERVICAL SPINE WO IVCON, CT BRAIN WO IVCON CLINICAL HISTORY: C-spine trauma, NEXUS/CCR positive (accession [id number]), Head trauma, headache (accession [id number]) TECHNIQUE: Serial axial unenhanced images were obtained from the vertex to the foramen magnum. Spiral, high resolution axial unenhanced images were obtained from the skull base to the cervicothoracic junction with sagittal and coronal planar reconstructions. Dose-Length Product (DLP): 2132 mGy*cm. CT Dose Reduction Employed: Automated exposure control (AEC) COMPARISON: 08/13/[address] RESULT: BRAIN: Post-operative change: Right parietal approach SUPERVISOR POST WAVE shunt is intact. 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 Acute change: No evidence of an acute infarct or other acute parenchymal process. Hemorrhage: No evidence of acute intracranial hemorrhage. Mass Lesion / Mass Effect: There is no evidence of an intracranial mass or extraaxial fluid collection. No significant mass effect. 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 Parenchyma: There is mild generalized volume loss. Ventricles: Ventriculomegaly when compared to the relatively remote examination from 01/24/2013.. Other: Right maxillary sinus mucus retention cyst. CERVICAL: Counting reference: Craniocervical junction. Anatomic Variants: None. Alignment: Alignment is straightened. Craniocervical junction: Craniocervical junction is normal. Osseous structures/fracture: No evidence of a lytic or blastic process in the visualized spine. No evidence of acute or chronic fracture. Cervical soft tissues: The paraspinal soft tissues planes are maintained. Degenerative changes: Mild multilevel degenerative disc changes. Facet and uncovertebral arthropathy contribute to multilevel mild to moderate foraminal stenosis. IMPRESSION: Head CT: No acute abnormality. Cervical CT: No acute abnormality. Anatomic Variant: None. Assume 7 cervical vertebrae with counting from the craniocervical junction. [employer] Worker: [facility] Transcribe Date/Time: May 29 2021 8:59P Dictated by : CARLOS YOUNGER MD This examination was interpreted and the report reviewed and electronically signed by: CARLOS YOUNGER MD on May 29 2021 9:14PM EST [id number] Normal [facility] Cepheid Bill only (EXCFR)on 05-29-2021 Cepheid Bill only (EXCFR) Billed for services performed Normal [facility] Comment on above: Performed By: #### C AD #### [facility] [address] [facility] [address] [place] [id number] Comp Metabolic Panelon 05-29 Albumin [Mass/Vol] 4.1 g/dL Normal 3.9-4.9 [facility] Comment on above: Performed By: #### C MP ####[facility] [address] [place] [address] ALP [Catalytic activity/Vol] 86 U/L Normal 38-113 [facility] Comment on above: Performed By: #### C MP ####[facility] [address] [place] [address] ALT [Catalytic activity/Vol] 15 U/L Normal 10-54 [facility] Comment on above: Performed By: #### C MP ####[facility] [address] [place] [address] Anion gap [Moles/Vol] 9 mmol/L Normal 9-18 [facility] Comment on above: Performed By: #### C MP ####[facility] [address] [place] [address] AST [Catalytic activity/Vol] 22 U/L Normal 14-40 [facility] Comment on above: Performed By: #### C MP ####[facility] [address] [place] [address] Bilirubin [Mass/Vol] 0.2 mg/dL Normal 0.2-1.3 [facility] Comment on above: Performed By: #### C MP ####[facility] [address] [place] [address] Calcium [Mass/Vol] 9.1 mg/dL Normal 8.5-10.2 [facility] Comment on above: Performed By: #### C MP ####[facility] [address] [place] [address] Chloride [Moles/Vol] 103 mmol/L Normal 97-105 [facility] Comment on above: Performed By: #### C MP ####[facility] [address] [place] [address] CO2 [Moles/Vol] 29 mmol/L Normal 22-30 [facility] Comment on above: Performed By: #### C MP ####[facility] [address] [place] [address] Creatinine [Mass/Vol] 0.89 mg/dL Normal 0.73-1.22 [facility] Comment on above: Performed By: #### C MP ####[facility] [address] [place] [address] eGFR- Amer. >60 Normal [facility] Comment on above: Performed By: #### C MP ####[facility] [address] [place] [address] eGFR-All Other Races >60 Normal [facility] Comment on above: Result Comment: eGFR (Estimated GFR) Units of measure: mL/min/1.73 meters squared eGFR is derived from the reexpressed MDRD Study equation using the following parameters: serum creatinine, age, gender and race. The creatinine assay has been calibrated to be traceable to IDMS. An eGFR <60 mL/min/1.73m2 for >3 months is consistent with chronic kidney disease. Refer to KDOQI guidelines for clinical interpretation. In patients with unstable renal function, e.g. those with acute kidney injury, the eGFR may not accurately reflect actual GFR. Note: On 07/02/2021, the eGFR calculation will be updated to the NKF-ASN Task Force recommended 2020 CKD-EPI creatinine equation which does not include a race variable. For more information or to access a 2020 CKD-EPI calculator, visit the National Kidney Foundation website at kidney.org/professionals/kdoqi/gfr_calculator. Performed By: #### C MP ####[facility] [address] [place] [address] Glucose [Mass/Vol] 120 mg/dL High 74-99 [facility] Comment on above: Result Comment: The [place] Diabetes Association (ADA) provides guidance for cutoff values for fasting glucose and random glucose. The ADA defines fasting as no caloric intake for at least 8 hours. Fasting plasma glucose results between 100 to 125 mg/dL indicate increased risk for diabetes (prediabetes). Fasting plasma glucose results greater than or equal to 126 mg/dL meet the criteria for diagnosis of diabetes. In the absence of unequivocal hyperglycemia, results should be confirmed by repeat testing. In a patient with classic symptoms of hyperglycemia or hyperglycemic crisis, random plasma glucose results greater than or equal to 200 mg/dL meet the criteria for diagnosis of diabetes. Reference: Standards of Medical Care in Diabetes 2016, [place] Diabetes Association. Diabetes Care. 2016.39(Suppl 1). Performed By: #### C MP ####[facility] [address] [place] [address] Potassium [Moles/Vol] 4.2 mmol/L Normal 3.7-5.1 [facility] Comment on above: Performed By: #### C MP ####[place] [address] Protein [Mass/Vol] 7.1 g/dL Normal 6.3-8.0 [facility] Comment on above: Performed By: #### C MP ####[place] [address] Sodium [Moles/Vol] 141 mmol/L Normal 136-144 [facility] Comment on above: Performed By: #### C MP ####[place] [address] Urea nitrogen [Mass/Vol] 11 mg/dL Normal 9-24 [facility] Comment on above: Performed By: #### C MP ####[place] [address] Albumin [Mass/Vol] 4.1 g/dL Normal 3.9-4.9 [facility] Comment on above: Performed By: #### C MP, MG1, CBCDIF ####[facility] [address] [place] [address] ALP [Catalytic activity/Vol] 86 U/L Normal 38-113 [facility] Comment on above: Performed By: #### C MP, MG1, CBCDIF ####[facility] [address] [place] [address] ALT Unable to assay due to interference from hemolysis. Suggest reorder as clinically indicated. Normal 10-54 [facility] Comment on above: Result Comment: [facility] by Sabino Performed By: #### C MP, MG1, CBCDIF ####[facility] [address] [place] [address] Anion gap [Moles/Vol] 12 mmol/L Normal 9-18 [facility] Comment on above: Performed By: #### C MP, MG1, CBCDIF ####[facility] [address] [place] [address] AST Unable to assay due to interference from hemolysis. Suggest reorder as clinically indicated. Normal 14-40 [facility] Comment on above: Result Comment: Call ed to ED StephanLubna at 2128 on 05.29.21 by Sabino Performed By: #### C MP, MG1, CBCDIF ####[facility] [address] [place] [address] Bilirubin [Mass/Vol] 0.2 mg/dL Normal 0.2-1.3 [facility] Comment on above: Performed By: #### C MP, MG1, CBCDIF ####[facility] [address] [place] [address] Calcium [Mass/Vol] 9.0 mg/dL Normal 8.5-10.2 [facility] Comment on above: Performed By: #### C MP, MG1, CBCDIF ####[facility] [address] [place] [address] Chloride [Moles/Vol] 102 mmol/L Normal 97-105 [facility] Comment on above: Performed By: #### C MP, MG1, CBCDIF ####[facility] [address] [place] [address] CO2 [Moles/Vol] 27 mmol/L Normal 22-30 [facility] Comment on above: Performed By: #### C MP, MG1, CBCDIF ####[facility] [address] [place] [address] Creatinine [Mass/Vol] 0.75 mg/dL Normal 0.73-1.22 [facility] Comment on above: Performed By: #### C MP, MG1, CBCDIF ####[facility] [address] [place] [address] eGFR- Amer. >60 Normal [facility] Comment on above: Performed By: #### C MP, MG1, CBCDIF ####[facility] [address] [place] [address] eGFR-All Other Races >60 Normal [facility] Comment on above: Result Comment: eGFR (Estimated GFR) Units of measure: mL/min/1.73 meters squared eGFR is derived from the reexpressed MDRD Study equation using the following parameters: serum creatinine, age, gender and race. The creatinine assay has been calibrated to be traceable to IDMS. An eGFR <60 mL/min/1.73m2 for >3 months is consistent with chronic kidney disease. Refer to KDOQI guidelines for clinical interpretation. In patients with unstable renal function, e.g. those with acute kidney injury, the eGFR may not accurately reflect actual GFR. Note: On 07/02/2021, the eGFR calculation will be updated to the NKF-ASN Task Force recommended 2020 CKD-EPI creatinine equation which does not include a race variable. For more information or to access a 2020 CKD-EPI calculator, visit the National Kidney Foundation website at kidney.org/professionals/kdoqi/gfr_calculator. Performed By: #### C MP, MG1, CBCDIF ####[facility] [address] Glucose [Mass/Vol] 112 mg/dL High 74-99 [facility] Comment on above: Result Comment: The [place] Diabetes Association (ADA) provides guidance for cutoff values for fasting glucose and random glucose. The ADA defines fasting as no caloric intake for at least 8 hours. Fasting plasma glucose results between 100 to 125 mg/dL indicate increased risk for diabetes (prediabetes). Fasting plasma glucose results greater than or equal to 126 mg/dL meet the criteria for diagnosis of diabetes. In the absence of unequivocal hyperglycemia, results should be confirmed by repeat testing. In a patient with classic symptoms of hyperglycemia or hyperglycemic crisis, random plasma glucose results greater than or equal to 200 mg/dL meet the criteria for diagnosis of diabetes. Reference: Standards of Medical Care in Diabetes 2016, [place] Diabetes Association. Diabetes Care. 2016.39(Suppl 1). Performed By: #### C MP, MG1, CBCDIF ####[facility] [address] [place] [address] Potassium Unable to assay due to interference from hemolysis. Suggest reorder as clinically indicated. Normal 3.7-5.1 [facility] Comment on above: Result Comment: Call ed to ED Álvaro at 2129 on 05.29.21 by Sabino Performed By: #### C MP, MG1, CBCDIF ####[facility] [address] [place] [address] Protein [Mass/Vol] 7.3 g/dL Normal 6.3-8.0 [facility] Comment on above: Performed By: #### C MP, MG1, CBCDIF ####[facility] [address] [place] [address] Sodium [Moles/Vol] 141 mmol/L Normal 136-144 [facility] Comment on above: Performed By: #### C MP, MG1, CBCDIF ####[facility] [address] [place] [address] Urea nitrogen [Mass/Vol] 11 mg/dL Normal 9-24 [facility] Comment on above: Performed By: #### C MP, MG1, CBCDIF ####[facility] [address] ED PROV NOTEon 05-29-2021 ED PROV NOTE HNO ID: [id number] Author: Shanell Slaughter MD Service: ? Author Type: Physician Type: ED Provider Notes Filed: 05/29/2021 11:02 PM Note Text: ED Provider Note Patient Name: Andrew Sifuentes SERVICE DATE: 05/29/21 History Patient presents with: Fall: fell today at 12 pm and could not get up Is a 71-year-old male coming in after a fall. Patient is from home he states he lives by himself patient here does not remember falling however squad was called out to a fall but he was unable to get up on his own. Patient himself is a very poor historian. He has a history of an intracranial shunt. He states he lives by himself he does not really have any family. He states he normally drives to get groceries. PAST MEDICAL HISTORY Diagnosis Date - Asthma - Intracranial shunt - PE (pulmonary embolism) PAST SURGICAL HISTORY Procedure Laterality Date - BRAIN SURGERY HX No family history on file. Social History Tobacco Use - Smoking status: Never Smoker - Smokeless tobacco: Never Used Vaping Use - Vaping Use: Never used Substance and Sexual Activity - Alcohol use: No - Drug use: Never - Sexual activity: Yes ALLERGIES Allergen Reactions - Alcohol Rash, Hives, Other: See Comments Chest pain,red face,hot. - Latex Rash Review of Systems Constitutional: Negative for fever. Respiratory: Negative for shortness of breath. Cardiovascular: Negative for chest pain. Gastrointestinal: Negative for abdominal pain and vomiting. All other systems reviewed and are negative. Physical Exam Vitals [05/29/211948] BP Pulse Temp Temp src Resp SpO2 Weight Height 148/76 (!) 100 37.2 ?C (99 ?F) Oral 18 97 % 127 kg (280 lb) -- Physical Exam Vitals and nursing note reviewed. Constitutional: General: He is not in acute distress. Appearance: He is not ill-appearing. HENT: Head: Comments: Shunts on the right occiput but no obvious signs of trauma Mouth/Throat: Mouth: Mucous membranes are moist. Cardiovascular: Rate and Rhythm: Normal rate and regular rhythm. Pulmonary: Effort: Pulmonary effort is normal. Breath sounds: Normal breath sounds. Abdominal: General: There is no distension. Palpations: Abdomen is soft. Tenderness: There is no abdominal tenderness. Musculoskeletal: General: Swelling (Bilateral feet swelling. Chronic skin changes on the bilateral lower extremities) present. Cervical back: Neck supple. Skin: General: Skin is warm. Neurological: General: No focal deficit present. Mental Status: He is alert and oriented to person, place, and time. Sensory: No sensory deficit. Motor: No weakness. Comments: Patient is alert and oriented x3 however is confused about why he is here he does not remember falling or however the squad got called Psychiatric: Mood and Affect: Mood normal. Diagnostic Testing ED Labs Ordered and Reviewed COMP METABOLIC PANEL - Abnormal; Notable for the following components: Result Value Ref Range Glucose 112 (*) 74 - 99 mg/dL All other components within normal limits CBC + DIFF - Abnormal; Notable for the following components: Hemoglobin 12.7 (*) 13.0 - 17.0 g/dL RDW-CV 15.5 (*) 11.5 - 15.0 % Abs Neut (ANC) 7.86 (*) 1.45 - 7.50 k/uL All other components within normal limits URINALYSIS - Abnormal; Notable for the following components: Appearance (U) Slightly Cloudy (*) Clear pH, Urine 8.5 (*) 5.0 - 8.0 All other components within normal limits NT PRO BNP - Abnormal; Notable for the following components: NT Pro BNP 303 (*) <125 pg/mL All other components within normal limits COMP METABOLIC PANEL - Abnormal; Notable for the following components: Glucose 120 (*) 74 - 99 mg/dL All other components within normal limits TROPONIN T MAGNESIUM BLD TROPONIN T CEPHEID BILL ONLY (EXCFR) EXPEDITED COVID, FLU A/B + RSV XR CHEST 1V FRONTAL PORT Final Result IMPRESSION:: No radiographic evidence of acute cardiopulmonary disease. [employer] Worker: [facility] Transcribe Date/Time: May 29 2021 8:53P Dictated by : ROLY BANGURA MD This examination was interpreted and the report reviewed and electronically signed by: ROLY BANGURA MD on May 29 2021 8:54PM EST CT BRAIN WO IVCON Final Result IMPRESSION: Head CT: No acute abnormality. Cervical CT: No acute abnormality. Anatomic Variant: None. Assume 7 cervical vertebrae with counting from the craniocervical junction. [employer] Worker: [facility] Transcribe Date/Time: May 29 2021 8:59P Dictated by : CARLOS YOUNGER MD This examination was interpreted and the report reviewed and electronically signed by: CARLOS YOUNGER MD on May 29 2021 9:14PM EST CT CERVICAL SPINE WO IVCON Final Result IMPRESSION: Head CT: No acute abnormality. Cervical CT: No acute abnormality. Anatomic Variant: None. Assume 7 cervical vertebrae with counting from the craniocervical junction. [employer] Worker: [facility] Transcribe Date/Time: May 29 (more content not included)... Normal [facility] ED PROV NOTE HNO ID: [id number] Author: Flavio Pandya DO Service: Emergency Medicine Author Type: Physician Type: ED Provider Notes Filed: 05/29/2021 7:10 PM Note Text: ED Provider Note Patient Name: Andrew Sifuentes SERVICE DATE: 05/29/21 History Patient presents with: Fall 71 yo male non-smoker, hx of HTN, 2 [employer] shunts, PE (not on anticoagulation now), asthma, chronic cough for a year, lives alone, had a fall today around noon. He has chronic LE weakness, difficulty getting up, but when up is able to ambulate without physical aids. He is not sure why he fell today, but has hx of frequent falls. He denies any syncope, LOC, WOODARD, vomiting. No SOB more than usual, no CP, abdominal pain. After his fall he was unable to get himself up and was on the floor roughly 6 hours until he crawled to his cell phone and called EMS. EMS had to bust open the door to get inside. They found him on the floor, awake and alert, and assisted him onto his couch. Patient does not want to go the hospital. He denies any recent illness, fevers, urinary symptoms, but is a little weaker than normal. His current PCP has stopped his Baclofen. Patient has verbally consented to a virtual evaluation. PAST MEDICAL HISTORY Diagnosis Date - Asthma - Intracranial shunt - PE (pulmonary embolism) PAST SURGICAL HISTORY Procedure Laterality Date - BRAIN SURGERY HX No family history on file. Social History Tobacco Use - Smoking status: Never Smoker - Smokeless tobacco: Never Used Vaping Use - Vaping Use: Never used Substance and Sexual Activity - Alcohol use: No - Drug use: Never - Sexual activity: Yes ALLERGIES Allergen Reactions - Alcohol Rash, Hives, Other: See Comments Chest pain,red face,hot. - Latex Rash Review of Systems Constitutional: Positive for activity change. Negative for chills and fever. HENT: Negative for trouble swallowing. Eyes: Negative for visual disturbance. Respiratory: Positive for cough and wheezing. Negative for shortness of breath. Cardiovascular: Positive for leg swelling. Negative for chest pain. Gastrointestinal: Negative for abdominal pain, nausea and vomiting. Genitourinary: Negative for difficulty urinating, flank pain and frequency. Musculoskeletal: Positive for gait problem. Negative for arthralgias and back pain. Skin: Positive for rash. Allergic/Immunologic: Negative for immunocompromised state. Neurological: Positive for weakness. Negative for dizziness, syncope, facial asymmetry, speech difficulty, numbness and headaches. Psychiatric/Behavioral: Negative for behavioral problems and confusion. Physical Exam Vitals [05/29/21 1830] BP Pulse Temp Temp src Resp SpO2 Weight Height 186/120 110 37.7 ?C (99.8 ?F) -- 20 95 % -- -- Provider examination performed via virtual platform with assistance from bedside clinician. Provider Location: [facility] Patient Location: Outpatient Hospital Physical Exam Vital signs and Nursing notes were reviewed Gen Appearance: Elevated initial BP. Repeat BP was 170/90. NAD. Neck: Trach/Thyroid normal EENT: PERRLA, EOMI, Conjunctivae normal. No eye deviation. Visual gonzalez grossly intact. Skin: Warm and dry with no rash. BLE swelling, with chronic hyperpigmentation of the lower legs c/w chronic venous stasis. Cardiovascular: Regular per medic Respiratory: Lungs have wheezing per medic. No hypoxia. Gastrointestinal: abdomen soft and non-tender Genitourinary: Patient was able to void on his own. Musculoskeletal: No extremity tenderness.2 Neurological: alert and oriented x 3. No focal deficits. No facial asymmetry, normal speech, no arm drift. Both LE are weak, able to lift them briefly but not sustain. No ataxia. He is unable to get up from sitting to standing on his own, to weak. However, once up he is able to ambulate on his own, normal gait. Diagnostic Testing ED Labs Ordered and Reviewed - No data to display Procedures ED Course / Clinical Impression Clinical Impressions as of 05/29/21 190 General weakness Fall, initial encounter MDM / Disposition / Plan Patient with hx of neurological problem and LE weakness, multiple falls, lives alone, had a fall today and maybe 6 hours on the floor. He seems close to baseline, but maybe more weak than usual, and with multiple attempts was unable to get up off the couch on his own, and required assistance. He reports that some home health is supposed to start in June, but he has nothing now. I have advised that he go to the hospital ED for further evaluation, primarily because he seems weaker than usual, and an occult infection needs to be ruled out. He also is going to need some home health care. I think it would be unsafe for him to stay at home alone without someone there to assist. He has agreed. MDM SIGNATURE: Flavio Pandya, DO Flavio Pandya, 05/29/211909 Normal [facility] EXCOVD, Flu A/B, RSV (On int erfaces 1102,1120)on 05-29-2021 Influenza A PCR Negative Normal [facility] Comment on above: Performed By: #### C AD #### [facility] [address] [place] [address] Influenza B PCR Negative Normal [facility] Comment on above: Performed By: #### C AD #### [facility] [address] [place] [address] RSV PCR Negative Normal [facility] Comment on above: Result Comment: This test has been authorized by [facility] under an Emergency Use Authorization (EUA). Performed By: #### C AD #### [facility] [address] [place] [address] SARS-CoV-2 (COVID-19) RNA MEGAN+probe Ql (Unsp spec) UPPER RESPIRATORY TRACT SWAB Normal [facility] Comment on above: Performed By: #### C AD #### [facility] [address] [place], [place] [id number] [place] [address] SARS-CoV-2 (COVID-19) RNA MEGAN+probe Ql (Unsp spec) Negative for COVID19 (SARS CoV2) by RT-PCR or equivalent method. Normal Negative for COVID19 (SARS CoV2) by RT-PCR or equivalent method. [facility] Comment on above: Result Comment: This test has been authorized by [facility] under an Emergency Use Authorization (EUA). Performed By: #### C AD #### [facility] [address] [place] [address] [facility] [address] [place], [place] [address] Magnesiumon 05-29-2021 Magnesium [Mass/Vol] 2.2 mg/dL Normal 1.7-2.3 [facility] Comment on above: Performed By: #### C MP, MG1, CBCDIF ####[facility] [address] [place] [id number] NT Pro BNPon 05-29-2021 PRO B Natr Peptide 303 pg/mL High <125 [facility] Comment on above: Performed By: #### N TBNP ####[facility] [address] Troponin Ton 05-29-2021 Troponin T <0.010 Normal 0.000-0.029 [facility] Comment on above: Performed By: #### T NT ####[facility] [address]65 [address] Troponin T Unable to assay due to interference from hemolysis. Suggest reorder as clinically indicated. Normal 0.000-0.029 [facility] Comment on above: Result Comment: Call ed to ED Álvaro at 2129 on 05.29.21 by Sabino Performed By: #### T NT ####[facility] [address] [place] [id number] XR CHEST 1V FRONTAL PORTon 0 05-29-2021 XR CHEST 1V FRONTAL PORT * * *Final Report* * * DATE OF EXAM: May 29 2021 8:50PM MDX [id number] - XR CHEST 1V FRONTAL PORT / PROCEDURE REASON: Shortness of breath * * * * Physician Interpretation * * * * Exam: Single view of the chest. Reason for exam:Shortness of breath. FINDINGS: The cardiac silhouette is of normal size. The lungs are clear. There is no pneumothorax or pleural effusion. No acute osseous abnormality is seen. IMPRESSION:: No radiographic evidence of acute cardiopulmonary disease. [employer] Worker: [facility] Transcribe Date/Time: May 29 2021 8:53P Dictated by : ROLY BANGURA MD This examination was interpreted and the report reviewed and electronically signed by: ROLY BANGURA MD on May 29 2021 8:54PM EST [id number] Normal [facility] PANELon 2020 Albumin [Mass/Vol] 3.9 g/dL Normal 3.4 - 5.0 [facility] Comment on above: Order Comment: PATIE NT FASTING Performed By: #### C MP #### [facility] [address] [place] [address] ALP [Catalytic activity/Vol] 71 U/L Normal 33 - 136 [facility] Comment on above: Order Comment: PATIE NT FASTING Performed By: #### C MP #### [facility] [address] [place] [address] ALT [Catalytic activity/Vol] 19 U/L Normal 10 - 52 [facility] Comment on above: Order Comment: PATIE NT FASTING Result Comment: Nasima ents treated with Sulfasalazine may generate falsely decreased results for ALT. Performed By: #### C MP #### [facility] [address] [place] [address] Anion gap [Moles/Vol] 13 mmol/L Normal 10 - 20 [facility] Comment on above: Order Comment: PATIE NT FASTING Performed By: #### C MP #### [facility] [address] [place] [address] AST [Catalytic activity/Vol] 20 U/L Normal 9 - 39 [facility] Comment on above: Order Comment: PATIE NT FASTING Performed By: #### C MP #### [facility] [address] [place] [address] Bilirubin [Mass/Vol] 0.6 mg/dL Normal 0.0 - 1.2 [facility] Comment on above: Order Comment: PATIE NT FASTING Performed By: #### C MP #### [facility] [address] [place] [address] Calcium [Mass/Vol] 9.0 mg/dL Normal 8.6 - 10.6 [facility] Comment on above: Order Comment: PATIE NT FASTING Performed By: #### C MP #### [facility] [address] [place] [address] Chloride [Moles/Vol] 103 mmol/L Normal 98 - 107 [facility] Comment on above: Order Comment: PATIE NT FASTING Performed By: #### C MP #### [facility] [address] [place] [address] Creatinine [Mass/Vol] 0.94 mg/dL Normal 0.50 - 1.30 [facility] Comment on above: Order Comment: PATIE NT FASTING Performed By: #### C MP #### [facility] [address] [place] [address] GFR- AM. >60 Normal >60 [facility] Comment on above: Order Comment: PATIE NT FASTING Result Comment: CALC ULATIONS OF ESTIMATED GFR ARE PERFORMED USING THE MDRD STUDY EQUATION FOR THE IDMS-TRACEABLE CREATININE METHODS. CLIN CHEM 2007;53:766-72 Performed By: #### C MP #### [facility] [address] [place] [address] GFR-NON AM. >60 Normal >60 [facility] Comment on above: Order Comment: PATIE NT FASTING Performed By: #### C MP #### [facility] [address] [place] [address] Glucose [Mass/Vol] 85 mg/dL Normal 74 - 99 [facility] Comment on above: Order Comment: PATIE NT FASTING Performed By: #### C MP #### [facility] [address] [place] [address] HCO3 (Bld) [Moles/Vol] 30 mmol/L Normal 21 - 32 [facility] Comment on above: Order Comment: PATIE NT FASTING Performed By: #### C MP #### [facility] [address] [place] [address] Potassium [Moles/Vol] 4.1 mmol/L Normal 3.5 - 5.3 [facility] Comment on above: Order Comment: PATIE NT FASTING Performed By: #### C MP #### [facility] [address] [place] [address] Protein [Mass/Vol] 6.6 g/dL Normal 6.4 - 8.2 [facility] Comment on above: Order Comment: PATIE NT FASTING Performed By: #### C MP #### [facility] [address] [place] [address] Sodium [Moles/Vol] 142 mmol/L Normal 136 - 145 [facility] Comment on above: Order Comment: PATIE NT FASTING Performed By: #### C MP #### [facility] [address] [place] [address] Urea nitrogen [Mass/Vol] 14 mg/dL Normal 6 - 23 [facility] Comment on above: Order Comment: PATIE NT FASTING Performed By: #### C MP #### [facility] [address] [place] [address] LIPID PANEL (CORONARY RISK 2 )on 09-03-2020 Cholesterol [Mass/Vol] 210 mg/dL High 0 - 199 [facility] Comment on above: Order Comment: PATIE NT FASTING Result Comment: . AGE DESIRABLE BORDERLINE HIGH HIGH 0-19 Y 0 - 169 170 - 199 >/= 200 20-24 Y 0 - 189 190 - 224 >/= 225 >24 Y 0 - 199 200 - 239 >/= 240 All ranges are based on fasting samples. Specific therapeutic targets will vary based on patient-specific cardiac risk. . Pediatric guidelines reference:Pediatrics 2011, 128(S5). Adult guidelines reference: NCEP ATPIII Guidelines, SHREYA 2001, 258:2486-97 . Venipuncture immediately after or during the administration of Metamizole may lead to falsely low results. Testing should be performed immediately prior to Metamizole dosing. Performed By: #### L IPID #### [facility] [address] [place] [address] Cholesterol in HDL [Mass/Vol] 50.1 mg/dL Normal [facility] Comment on above: Order Comment: PATIE NT FASTING Result Comment: . AGE VERY LOW LOW NORMAL HIGH 0-19 Y < 35 < 40 40-45 ---- 20-24 Y ---- < 40 >45 ---- >24 Y ---- < 40 40-60 >60 . Performed By: #### L IPID #### [facility] [address] [place] [address] Cholesterol in LDL [Mass/Vol] 130 mg/dL High 0 - 99 [facility] Comment on above: Order Comment: PATIE NT FASTING Result Comment: . NEAR BORD AGE DESIRABLE OPTIMAL HIGH HIGH VERY HIGH 0-19 Y 0 - 109 --- 110-129 >/= 130 ---- 20-24 Y 0 - 119 --- 120-159 >/= 160 ---- >24 Y 0 - 99 100-129 130-159 160-189 >/=190 . Performed By: #### L IPID #### [facility] [address] [place] [address] Cholesterol in VLDL [Mass/Vol] 30 mg/dL Normal 0 - 40 [facility] Comment on above: Order Comment: PATIE NT FASTING Performed By: #### L IPID #### [facility] [address] [place] [address] Cholesterol.total/Chol esterol in HDL [Mass ratio] 4.2 {ratio} Normal [facility] Comment on above: Order Comment: PATIE NT FASTING Result Comment: REF VALUES DESIRABLE < 3.4 HIGH RISK > 5.0 Performed By: #### L IPID #### [facility] [address] [place] [address] Triglyceride [Mass/Vol] 152 mg/dL High 0 - 149 [facility] Comment on above: Order Comment: PATIE NT FASTING Result Comment: . AGE DESIRABLE BORDERLINE HIGH HIGH VERY HIGH 0 D-90 D 19 - 174 ---- ---- ---- 91 D- 9 Y 0 - 74 75 - 99 >/= 100 ---- 10-19 Y 0 - 89 90 - 129 >/= 130 ---- 20-24 Y 0 - 114 115 - 149 >/= 150 ---- >24 Y 0 - 149 150 - 199 200- 499 >/= 500 . Venipuncture immediately after or during the administration of Metamizole may lead to falsely low results. Testing should be performed immediately prior to Metamizole dosing. Performed By: #### L IPID #### [facility] [address] [place] [address] PROSTATE SPEC.AG,SCREENon PROSTATE SPEC.AG,SCREEN 0.37 ng/mL Normal 0.00 - 4.00 [facility] Comment on above: Order Comment: PATIE NT FASTING Result Comment: The FDA requires that the method used for PSA assay be reported to the physician. Values obtained with different assay methods must not be used interchangeably. This test was performed at [facility] using the [employer] PSA method, which is a sandwich immunoassay using chemiluminescence for quantitation. The assay is approved for measurement of prostate-specific antigen (PSA) in serum and may be used in conjunction with a digital rectal examination in men 50 years and older as an aid in detection of prostate cancer. 4-Lrfuf-jfikipoqb inhibitors (e.g. Proscar, Finasteride, Avodart, Dutasteride and Elizabeth) for the treatment of BPH have been shown to lower PSA levels by an average of 50% after 6 months of treatment. Performed By: #### P SASC #### [facility] [address] [place] [id number] TSH WITH REFLEX TO FREE T4 I F ABNORMALon 09-03-2020 TSH Qn 0.97 m[IU]/L Normal 0.44 - 3.98 [facility] Comment on above: Order Comment: PATIE NT FASTING Result Comment: TSH testing is performed using different testing methodology at [facility] than at other [facility]. Direct result comparisons should only be made within the same method. Performed By: #### T HYDS #### [facility] [address] [place] [address] CBC AND DIFFERENTIALon 09-02 % AUTOMATED IMMATURE GRAN 0.3 % Normal 0.0 - 0.9 [facility] Comment on above: Order Comment: PATIE NT FASTING Result Comment: [place] Granulocyte Count (IG) includes promyelocytes, myelocytes and metamyelocytes but does not include bands. Percent differential counts (%) should be interpreted in the context of the absolute cell counts (cells/L). Performed By: #### C BCDF #### [facility] [address] [place] [address] Basophils (Bld) [#/Vol] 0.07 10*3/uL Normal 0.00 - 0.10 [facility] Comment on above: Order Comment: PATIE NT FASTING Result Comment: Auto mated WBC differential has been confirmed by manual smear. Performed By: #### C BCDF #### [facility] [address] [place] [address] Basophils/100 WBC (Bld) 0.9 % Normal 0.0 - 2.0 [facility] Comment on above: Order Comment: PATIE NT FASTING Performed By: #### C BCDF #### [facility] [address] [place] [address] Eosinophils (Bld) [#/Vol] 0.21 10*3/uL Normal 0.00 - 0.70 [facility] Comment on above: Order Comment: PATIE NT FASTING Performed By: #### C BCDF #### [facility] [address] [place] [address] Eosinophils/100 WBC (Bld) 2.8 % Normal 0.0 - 6.0 [facility] Comment on above: Order Comment: PATIE NT FASTING Performed By: #### C BCDF #### [facility] [address] [place] [address] Lymphocytes (Bld) [#/Vol] 2.28 10*3/uL Normal 1.20 - 4.80 [facility] Comment on above: Order Comment: PATIE NT FASTING Performed By: #### C BCDF #### [facility] [address] [place] [address] Lymphocytes/100 WBC (Bld) 30.9 % Normal 13.0 - 44.0 [facility] Comment on above: Order Comment: PATIE NT FASTING Performed By: #### C BCDF #### [facility] [address] [place] [address] Monocytes (Bld) [#/Vol] 0.50 10*3/uL Normal 0.10 - 1.00 [facility] Comment on above: Order Comment: PATIE NT FASTING Performed By: #### C BCDF #### [place] [address] [place] [address] Monocytes/100 WBC (Bld) 6.8 % Normal 2.0 - 10.0 [facility] Comment on above: Order Comment: PATIE NT FASTING Performed By: #### C BCDF #### [facility] [address] [place] [address] Neutrophils (Bld) [#/Vol] 4.29 10*3/uL Normal 1.20 - 7.70 [facility] Comment on above: Order Comment: PATIE NT FASTING Performed By: #### C BCDF #### [facility] [address] [place] [address] Neutrophils/100 WBC (Bld) 58.3 % Normal 40.0 - 80.0 [facility] Comment on above: Order Comment: PATIE NT FASTING Performed By: #### C BCDF #### [facility] [address] [place] [address] Erythrocyte distribution width (RBC) [Ratio] 14.6 % High 11.5 - 14.5 [facility] Comment on above: Order Comment: PATIE NT FASTING Performed By: #### C BCDF #### [facility] [address] [place] [address] Hematocrit (Bld) [Volume fraction] 43.1 % Normal 41.0 - 52.0 [facility] Comment on above: Order Comment: PATIE NT FASTING Performed By: #### C BCDF #### [facility] [address] [place] [address] Hemoglobin (Bld) [Mass/Vol] 13.3 g/dL Low 13.5 - 17.5 [facility] Comment on above: Order Comment: PATIE NT FASTING Performed By: #### C BCDF #### [facility] [address] [place] [address] MCHC (RBC) [Mass/Vol] 30.9 g/dL Low 32.0 - 36.0 [facility] Comment on above: Order Comment: PATIE NT FASTING Performed By: #### C BCDF #### [facility] [address] [place] [address] MCV (RBC) [Entitic vol] 92 fL Normal 80 - 100 [facility] Comment on above: Order Comment: PATIE NT FASTING Performed By: #### C BCDF #### [facility] [address] [place] [address] NUCLEATED RBC 0.0 /100 WBC Normal 0.0-0.0 [facility] Comment on above: Order Comment: PATIE NT FASTING Performed By: #### C BCDF #### [facility] [address] [place] [address] Platelets (Bld) [#/Vol] 267 10*3/uL Normal 150 - 450 [facility] Comment on above: Order Comment: PATIE NT FASTING Performed By: #### C BCDF #### [facility] [address] [place] [address] RBC 4.69 x10E12/L Normal 4.50 - 5.90 [facility] Comment on above: Order Comment: PATIE NT FASTING Performed By: #### C BCDF #### [facility] [address] [place] [address] WBC (Bld) [#/Vol] 7.4 10*3/uL Normal 4.4 - 11.3 [facility] Comment on above: Order Comment: PATIE NT FASTING Performed By: #### C BCDF #### [facility] [address] [place] [address] RED CELL MORPHOLOGYon 2020 CHANELL CELLS Few Normal [facility] Comment on above: Order Comment: PATIE NT FASTING Performed By: #### M ORP2 #### [facility] [address] [place] [address] OVALOCYTES Few Normal [facility] Comment on above: Order Comment: PATIE NT FASTING Performed By: #### M ORP2 #### [facility] [address] [place] [address] POLYCHROMASIA Mild Normal [facility] Comment on above: Order Comment: PATIE NT FASTING Performed By: #### M ORP2 #### [facility] [address] [place] [address] RBC FRAGMENTS Few Normal [facility] Comment on above: Order Comment: PATIE NT FASTING Performed By: #### M ORP2 #### [facility] [address] [place] [address] RBC morphology finding Nom (Bld) See Below Normal [facility] Comment on above: Order Comment: JEREMIAS NT FASTING Performed By: #### M ORP2 #### [facility] [address] [place] [address] No Panel Informationon 01-19 76 1 [facility] [place] Work Phone: [phone] [facility] [place] Work Phone: [phone] [facility] [place] Work Phone: [phone] [facility] [place] Work Phone: [phone] [facility] [place] Work Phone: 68 1 [facility] [place] Work Phone: 47 1 [facility] [place] Work Phone: 13 1 [facility] [place] Work Phone: [phone] [facility] [place] Work Phone: 157 1 [facility] [place] Work Phone: [phone] [facility] [place] Work Phone: [phone] [facility] [place] Work Phone: [phone] [facility] [place] Work Phone: Normal sinus rhythm [facility] [place] Work Phone: [email or web address] ?RetrieveTestByDateTime?P [email or web address]&Date=1 09-13-2019&Time=15%3a11%3a 03%3a00&TestType=ECG&Site =1&OutputType=PDF&Ext=PDF [facility] [place] Work Phone: Otheron 11-13-2019 [facility] Complete Blood Count + Diffe rentialon 11-06-2019 Basophils (Bld) [#/Vol] 0.06 {x10E9/L} See Below [facility] Work Phone: Comment on above: Reference Range: 0.0 0 - 0.10 Basophils/100 WBC (Bld) 0.8 % 0.0 - 2.0 [facility] Work Phone: Eosinophils (Bld) [#/Vol] 0.18 {x10E9/L} See Below [facility] Work Phone: Comment on above: Reference Range: 0.0 0 - 0.70 Eosinophils/100 WBC (Bld) 2.5 % 0.0 - 6.0 [facility] Work Phone: Erythrocyte distribution width (RBC) [Ratio] 13.7 % See Below [facility] Work Phone: Comment on above: Reference Range: 11. 5 - 14.5 Hematocrit (Bld) [Volume fraction] 45.5 % See Below [facility] Work Phone: Comment on above: Reference Range: 41. 0 - 52.0 Hemoglobin (Bld) [Mass/Vol] 14.0 g/dL See Below [facility] Work Phone: Comment on above: Reference Range: 13. 5 - 17.5 Lymphocytes (Bld) [#/Vol] 2.15 {x10E9/L} See Below [facility] Work Phone: Comment on above: Reference Range: 1.2 0 - 4.80 Lymphocytes/100 WBC (Bld) 29.9 % See Below [facility] Work Phone: Comment on above: Reference Range: 13. 0 - 44.0 MCHC (RBC) [Mass/Vol] 30.8 g/dL below low threshold See Below [facility] Work Phone: Comment on above: Reference Range: 32. 0 - 36.0 MCV (RBC) [Entitic vol] 94 fL 80 - 100 [facility] Work Phone: Monocytes (Bld) [#/Vol] 0.49 {x10E9/L} See Below [facility] Work Phone: Comment on above: Reference Range: 0.1 0 - 1.00 Monocytes/100 WBC (Bld) 6.8 % 2.0 - 10.0 [facility] Work Phone: Neutrophils (Bld) [#/Vol] 4.30 {x10E9/L} See Below [facility] Work Phone: Comment on above: Reference Range: 1.2 0 - 7.70 Neutrophils/100 WBC (Bld) 59.9 % See Below [facility] Work Phone: Comment on above: Reference Range: 40. 0 - 80.0 Platelets (Bld) [#/Vol] 270 {x10E9/L} 150 - 450 [facility] Work Phone: RBC (Bld) [#/Vol] 4.85 {x10E12/L} See Below [facility] Work Phone: Comment on above: Reference Range: 4.5 0 - 5.90 WBC (Bld) [#/Vol] 0.0 {/100_WBC} 0.0-0.0 [facility] Work Phone: WBC (Bld) [#/Vol] 7.2 {x10E9/L} 4.4 - 11.3 [facility] Work Phone: Complete Blood Count + Differential 0.1 % 0.0 - 0.9 [facility] Work Phone: Comment on above: Immature Granulocyte Count (IG) includes promyelocytes, myelocytes and metamyelocytes but does not include bands. Percent differential counts (%) should be interpreted in the context of the absolute cell counts (cells/L). Lipid Panelon 11-06-2019 Cholesterol [Mass/Vol] 181 mg/dL 0 - 199 [facility] Work Phone: Comment on above: . AGE DESIRABLE BORD PAT HIGH HIGH 0-19 Y 0 - 169 170 - 199 >/= 200 20-24 Y 0 - 189 190 - 224 >/= 225 >24 Y 0 - 199 200 - 239 >/= 240 All ranges are based on fasting samples. Specific therapeutic targets will vary based on patient-specific cardiac risk.. Pediatric guidelines reference:Pediatrics 2011, 128(S5). Adult guidelines reference: NCEP ATPIII Guidelines, SHREYA 2001, 258:2486-97. Venipuncture immediately after or during the administration of Metamizole may lead to falsely low results. Testing should be performed immediately prior to Metamizole dosing. Cholesterol in HDL [Mass/Vol] 52.1 mg/dL [facility] Work Phone: Comment on above: . AGE VERY LOW LOW N ORMAL HIGH 0-19 Y < 35 < 40 40-45 ---- 20-24 Y ---- < 40 >45 ---- >24 Y ---- < 40 40-60 >60. Cholesterol in LDL [Mass/Vol] 97 mg/dL 0 - 99 [facility] Work Phone: Comment on above: . NEAR BORD AGE IZABELLA RABLE OPTIMAL HIGH HIGH VERY HIGH 0-19 Y 0 - 109 --- 110-129 >/= 130 ---- 20-24 Y 0 - 119 --- 120-159 >/= 160 ---- >24 Y 0 - 99 100-129 130-159 160-189 >/=190. Cholesterol.total/Chol esterol in HDL [Mass ratio] 3.5 {ratio} [facility] Work Phone: Comment on above: REF VALUESDESIRABLE < 3.4HIGH RISK > 5.0 Triglyceride [Mass/Vol] 158 mg/dL above high threshold 0 - 149 [facility] Work Phone: Comment on above: . AGE DESIRABLE BORD PAT HIGH HIGH VERY HIGH 0 D-90 D 19 - 174 ---- ---- ----91 D- 9 Y 0 - 74 75 - 99 >/= 100 ---- 10-19 Y 0 - 89 90 - 129 >/= 130 ---- 20-24 Y 0 - 114 115 - 149 >/= 150 ---- >24 Y 0 - 149 150 - 199 200- 499 >/= 500. Venipuncture immediately after or during the administration of Metamizole may lead to falsely low results. Testing should be performed immediately prior to Metamizole dosing. Lipid Panel 32 mg/dL 0 - 40 [facility] Work Phone: Metabolic Panelon 11-06-2019 ALP [Catalytic activity/Vol] 70 U/L 33 - 136 [facility] Work Phone: Anion gap [Moles/Vol] 13 mmol/L 10 - 20 [facility] Work Phone: Bilirubin [Mass/Vol] 0.6 mg/dL 0.0 - 1.2 [facility] Work Phone: Calcium [Mass/Vol] 9.4 mg/dL 8.6 - 10.6 [facility] Work Phone: Chloride [Moles/Vol] 99 mmol/L 98 - 107 [facility] Work Phone: CO2 [Moles/Vol] 30 mmol/L 21 - 32 [facility] Work Phone: Creatinine [Mass/Vol] 0.87 mg/dL See Below [facility] Work Phone: Comment on above: Reference Range: 0.5 0 - 1.30 Glucose [Mass/Vol] 89 mg/dL 74 - 99 [facility] Work Phone: Potassium [Moles/Vol] 4.3 mmol/L 3.5 - 5.3 [facility] Work Phone: Protein [Mass/Vol] 7.3 g/dL 6.4 - 8.2 [facility] Work Phone: Sodium [Moles/Vol] 138 mmol/L 136 - 145 [facility] Work Phone: Urea nitrogen [Mass/Vol] 14 mg/dL 6 - 23 [facility] Work Phone: Otheron 11-06-2019 Albumin BCP dye [Mass/Vol] 4.4 g/dL 3.4 - 5.0 [facility] Work Phone: ALT With P-5'-P [Catalytic activity/Vol] 11 U/L 10 - 52 [facility] Work Phone: Comment on above: Patients treated wit h Sulfasalazine may generate falsely decreased results for ALT. AST With P-5'-P [Catalytic activity/Vol] 17 U/L 9 - 39 [facility] Work Phone: >60 >60 [facility] Work Phone: Comment on above: CALCULATIONS OF LUZMARIA MATED GFR ARE PERFORMED USING THE MDRD STUDY EQUATION FOR THE IDMS-TRACEABLE CREATININE METHODS. CLIN CHEM 2007;53:766-72 Culture, urine Bacteria identified Cx Nom (U) Mixed Gram Pos & Gram Neg Org [facility] Work Phone: Bacteria identified Cx Nom (U) Klebsiella pneumoniae sp pneum [facility] Work Phone: Vital Signs Date Time Vital Sign Value Performing Clinician Facility 09-13-2023 11:48-0400 Body height 175.3 cm Rebecca Buck MD Work Phone: [facility] 09-13-2023 11:48-0400 Body mass index (BMI) [Ratio] 25.84 kg/m2 Rebecca Buck MD Work Phone: [facility] 09-13-2023 11:48-0400 Body weight 79.38 kg Rebecca Buck MD Work Phone: [facility] 08-13-2023 09:56-0400 Body height 175.3 cm Rebecca Buck MD Work Phone: [facility] 08-13-2023 09:56-0400 Body mass index (BMI) [Ratio] 25.84 kg/m2 Rebecca Buck MD Work Phone: [facility] 08-13-2023 09:56-0400 Body weight 79.38 kg Rebecca Buck MD Work Phone: [facility] 03-02-2022 18:49-0400 Body temperature 98.01 [degF] Lanette Munguia DO Work Phone: [employer] 03-02-2022 18:49-0400 Diastolic blood pressure 72 mm[Hg] Lanette Munguia DO Work Phone: [facility] 03-02-2022 18:49-0400 Heart rate 94 /min Lanette Munguia DO Work Phone: [facility] 03-02-2022 18:49-0400 Respiratory rate 18 /min Lanette Munguia DO Work Phone: [facility] 03-02-2022 18:49-0400 SaO2% (BldA) [Mass fraction] 98 % Lanette Munguia DO Work Phone: [facility] 03-02-2022 18:49-0400 Systolic blood pressure 104 mm[Hg] Lanette Munguia DO Work Phone: [facility] 03-02-2022 11:55-0400 Body height 175.3 cm Lanette Munguia DO Work Phone: [facility] 03-02-2022 11:55-0400 Body mass index (BMI) [Ratio] 25.84 kg/m2 Lanette Munguia DO Work Phone: [facility] 03-02-2022 11:55-0400 Body weight 79.38 kg Lanette Munguia DO Work Phone: [facility] 12-22-2021 02:08-0400 Diastolic blood pressure 67 mm[Hg] Sharon Olivia MD Work Phone: [facility] 12-22-2021 02:08-0400 Heart rate 77 /min Sharon Olivia MD Work Phone: [facility] 12-22-2021 02:08-0400 Respiratory rate 16 /min Sharon Olivia MD Work Phone: [facility] 12-22-2021 02:08-0400 SaO2% (BldA) [Mass fraction] 96 % Sharon Olivia MD Work Phone: [facility] 12-22-2021 02:08-0400 Systolic blood pressure 108 mm[Hg] Sharon Olivia MD Work Phone: [facility] 12-21-2021 23:52-0400 Body height 175.3 cm Sharon Olivia MD Work Phone: [facility] 12-21-2021 23:52-0400 Body mass index (BMI) [Ratio] 25.84 kg/m2 Shraon Olivia MD Work Phone: [facility] 12-21-2021 23:52-0400 Body temperature 97.9 [degF] Sharon Olivia MD Work Phone: [facility] 12-21-2021 23:52-0400 Body weight 79.38 kg Sharon Olivia MD Work Phone: [facility] 11-01-2021 08:41-0400 Diastolic blood pressure 77 mm[Hg] Dante Kim MD Work Phone: [facility] 11-01-2021 08:41-0400 Heart rate 75 /min Dante Kim MD Work Phone: [facility] 11-01-2021 08:41-0400 Respiratory rate 16 /min Dante Kim MD Work Phone: [facility] 11-01-2021 08:41-0400 SaO2% (BldA) [Mass fraction] 97 % Dante Kim MD Work Phone: [facility] 11-01-2021 08:41-0400 Systolic blood pressure 112 mm[Hg] Dante Kim MD Work Phone: [facility] 10-31-2021 19:13-0400 Body height 177.8 cm Dante Kim MD Work Phone: [facility] 10-31-2021 19:13-0400 Body mass index (BMI) [Ratio] 27.26 kg/m2 Dante Kim MD Work Phone: [facility] 10-31-2021 19:13-0400 Body temperature 98.49 [degF] Dante Kim MD Work Phone: [facility] 10-31-2021 19:13-0400 Body weight 86.18 kg Dante Kim MD Work Phone: [facility] 10-29-2021 07:38-0400 Body temperature 97.81 [degF] Lisa Miguel Angel DO Work Phone: [facility] 10-29-2021 07:38-0400 Diastolic blood pressure 79 mm[Hg] Lisa Miguel Angel DO Work Phone: [facility] 10-29-2021 07:38-0400 Heart rate 80 /min Lisa Miguel Angel DO Work Phone: [facility] 10-29-2021 07:38-0400 Respiratory rate 18 /min Lisa Miguel Angel DO Work Phone: [facility] 10-29-2021 07:38-0400 SaO2% (BldA) [Mass fraction] 96 % Lisa Miguel Angel DO Work Phone: [facility] 10-29-2021 07:38-0400 Systolic blood pressure 123 mm[Hg] Lisa Miguel Angel DO Work Phone: [facility] 10-25-2021 13:55-0400 Body height 170.2 cm Lisa Miguel Angel DO Work Phone: [facility] 10-21-2021 00:57-0400 Body mass index (BMI) [Ratio] 37.58 kg/m2 Lisa Miguel Angel DO Work Phone: [facility] 10-21-2021 00:57-0400 Body weight 108.86 kg Lisa Miguel Angel DO Work Phone: [facility] 07-13-2020 13:21-0500 BMI (Body Mass Index) 40.47 kg/m2 Monika Eliasrt [facility] Work Phone: 07-13-2020 13:21-0500 Body Temperature 98 [degF] Shiela Luís [facility] Work Phone: 07-13-2020 13:21-0500 Body weight 124.31 kg Monika Eliasrt [facility] Work Phone: 07-13-2020 13:21-0500 BP Diastolic 78 mm[Hg] Monika Eliasrt [facility] Work Phone: 07-13-2020 13:21-0500 BP Systolic 138 mm[Hg] Monika Eliasrt [facility] Work Phone: 07-13-2020 13:21-0500 BSA (Body Surface Area) 2.36 m2 Monika Eliasrt [facility] Work Phone: 04-13-2020 15:33-0500 BMI (Body Mass Index) 40.32 kg/m2 Wing Harrison [facility] Work Phone: 04-13-2020 15:33-0500 Body weight 123.83 kg Wing Harrison [facility] Work Phone: 04-13-2020 15:33-0500 BP Diastolic 82 mm[Hg] Wing Harrison [facility] Work Phone: Comment on above: Location: [facility]; Position: Sitting 04-13-2020 15:33-0500 BP Systolic 145 mm[Hg] Wing Harrison [facility] Work Phone: Comment on above: Location: [facility]; Position: Sitting 04-13-2020 15:33-0500 BSA (Body Surface Area) 2.36 m2 Wing Ritter [facility] Physician [facility] Work Phone: 04-13-2020 15:33-0500 Height 175.26 cm Wing Ritter [facility] Work Phone: 04-13-2020 15:33-0500 Pulse (Heart Rate) 98 /min Wing Ritter [facility] Work Phone: 04-13-2020 15:33-0500 Pulse Oximetry 98 % Wing Ritter [facility] Work Phone: Comment on above: Source: 04-13-2020 15:33-0500 0 1 Wing Ritter [facility] Work Phone: Comment on above: Pain Scale 01-20-2020 16:39-0400 Body height 175.26 cm Monika Staley MD [facility] [address] [place] Work Phone: 01-20-2020 16:39-0400 Body mass index (BMI) [Ratio] 39.28 kg/m2 Monika Staley MD HB-Qumjixcync-Izt [facility] [address] [place] Work Phone: 01-20-2020 16:39-0400 Body surface area Derived from formula 2.33 m2 Monika Staley MD MU-Eawjtiplas-Use [facility] [address] [place] Work Phone: 01-20-2020 16:39-0400 Body weight 120.66 kg Monika Staley MD [facility] [address] [place] Work Phone: 01-20-2020 16:39-0400 Diastolic blood pressure 84 mm[Hg] Monika Staley MD BI-Vuapuxmuip-Dmq [facility] [address] [place] Work Phone: Comment on above: Location: [facility]; Position: Sitting 01-20-2020 16:39-0400 Heart rate 80 /min Monika Staley MD [facility] [address] [place] Work Phone: 01-20-2020 16:39-0400 SaO2% (BldA) [Mass fraction] 100 % Monika Staley MD LW-Kcbkndfvsl-Unl [facility] [address] [place] Work Phone: Comment on above: Source: 01-20-2020 16:39-0400 Systolic blood pressure 144 mm[Hg] Monika Staley MD, [facility] [address] [place] Work Phone: Comment on above: Location: [facility]; Position: Sitting 11-06-2019 15:29-0400 BMI (Body Mass Index) 38.31 kg/m2 Monika Staley [facility] Work Phone: 11-06-2019 15:29-0400 Body Temperature 97.6 [degF] Monika Staley [facility] Work Phone: 11-06-2019 15:29-0400 Body weight 117.66 kg Monika Staley [facility] Work Phone: 11-06-2019 15:29-0400 BP Diastolic 62 mm[Hg] Monika Staley [facility] Work Phone: 11-06-2019 15:29-0400 BP Systolic 140 mm[Hg] Monika Staley [facility] Work Phone: 11-06-2019 15:29-0400 BSA (Body Surface Area) 2.31 m2 Monika Staley [facility] Work Phone: 11-06-2019 15:29-0400 Height 175.26 cm Monika Staley [facility] Work Phone: Encounters Encounter Date Encounter Type Care Provider Facility Start: 10-13-2024 ambulatory Carlos NOVAK Faci lity:[facility] Start: 10-09-2024 [facility] Start: 10-06-2024 ambulatory Carlos Cavazos OLS Faci lity:[facility] Start: 10-02-2024 [facility] Start: 10-02-2024 Registered Referred Karon casillas MD -[facility] Start: 09-30-2024 ambulatory [facility] OLS Facility:[facility] Start: 09-30-2024 Registered [facility] Start: 09-25-2024 ambulatory [facility] OLS Facility:[facility] Start: 09-25-2024 Registered Referred Karon casillas MD -[facility] Start: 09-22-2024 ambulatory [facility] OLS Facility:[facility] Start: 09-22-2024 Registered Referred [facility] Start: 09-18-2024 ambulatory [facility] OLS Facility:[facility] Start: 09-18-2024 Registered Referred [facility] Start: 09-15-2024 End: 09-15-[address] Monika Staley MD Work Phone: [facility] Work Phone: Start: 09-15-2024 End: 09-15-2024 Departed Referred [facility] Start: 09-15-2024 Registered Referred Carlos Reeder [facility] Start: 09-15-2024 End: 09-15-2024 ambulatory Carlos Cavazos OLS Facility:[facility] Start: 09-11-2024 ambulatory [facility] OLS Facility:[facility] Start: 09-11-2024 Registered Ref[facility] Start: 09-08-2024 Registered Referred [facility] Start: 09-08-2024 End: 09-08-[address] [facility] [facility] Start: 09-04-2024 End: 09-04-2024 Departed Referred Peter Katsaros -[facility] Start: 09-04-2024 Registered Referred Carlos Lópezsaros - [employer] [facility] Start: 09-04-2024 End: 09-04-2024 ambulatory Carlos NOVAK Facility:[facility] Start: 09-01-2024 End: 09-01-[address] Monika Staley MD Work Phone: [facility] Work Phone: Start: 09-01-2024 End: 09-01-2024 Departed Referred Carlos Quickros -[facility] Start: 09-01-2024 Registered Referred Carlos Quickros - [employer] [facility] Start: 09-01-2024 End: 09-01-2024 ambulatory Carlos NOVAK Facility:[facility] Start: 08-28-2024 End: 08-28-[address] Monika Staley MD Work Phone: [facility] Work Phone: Start: 08-28-2024 End: 08-28-2024 Departed Referred Carlos Quickros -[facility] [facility] Start: 08-28-2024 Registered Referred Carlos Quickros - [employer] [facility] Start: 08-28-2024 End: 08-28-2024 ambulatory Carlos NOVAK Facility:[facility] Start: 08-25-2024 End: 08-25-[address] Monika Staley MD Work Phone: [facility] Work Phone: Start: 08-25-2024 End: 08-25-2024 Departed Referred Karon Corrales MD -[facility] [email or web address] Start: 08-25-2024 Registered Referred Karon casillas MD -[facility] [employer] Start: 08-25-2024 End: 08-25-2024 ambulatory Karon NOVAK Facility:[facility] Start: 08-21-2024 End: 08-21-[address] Monika Staley MD Work Phone: [facility] Work Phone: Start: 08-21-2024 End: 08-21-2024 Departed Referred Karon [facility] [email or web address] Start: 08-21-2024 Registered Referred [facility] Start: 08-21-2024 End: 08-21-2024 ambulatory Mahaveer Dariana OLS Facility:[facility] Start: 08-18-2024 End: 08-18-[address] Monika Staley MD Work Phone: [facility] Work Phone: Start: 08-18-2024 End: 08-18-2024 Departed Referred Karon [facility] [employer] Start: 08-18-2024 Registered Referred Karon [facility] [employer] Start: 08-18-2024 End: 08-18-2024 ambulatory Carlaamber Farmera OLS Facility:[facility] Start: 08-14-2024 End: 08-14-[address] Monika Staley MD Work Phone: [facility] Work Phone: Start: 08-14-2024 End: 08-14-2024 Departed Referred Karon [facility] [employer] Start: 08-14-2024 Registered Referred Karon [facility] [employer] Start: 08-14-2024 End: 08-14-2024 ambulatory Carlaamber Corrales OLS Facility:[facility] Start: 08-11-2024 End: 08-11-2024 Departed Referred Karon [facility] [employer] Start: 08-11-2024 Registered Referred Karon [facility] [employer] Start: 08-11-2024 End: 08-11-2024 ambulatory Karon NOVAK Facility:[facility] Start: 08-07-2024 End: 08-07-2024 Departed Referred [facility] Start: 08-07-2024 Registered Referred Carlos Cavazos - [employer] Start: 08-07-2024 End: 08-07-2024 ambulatory Carlos Maribelkameron OLS Facility:[facility] Start: 08-04-2024 End: 08-04-[address] Monika Staley MD Work Phone: [facility] Work Phone: Start: 08-04-2024 End: 08-04-2024 Departed Referred [facility] Start: 08-04-2024 Registered Referred Carlos Cavazos - [employer] Start: 08-04-2024 End: 08-04-2024 ambulatory Carlos NOVAK Facility:[facility] Start: 07-31-2024 End: 07-31-[address] Monika Staley MD Work Phone: [facility] Work Phone: Start: 07-31-2024 End: 07-31-2024 Departed Referred [facility] Start: 07-31-2024 Registered Referred [facility] Start: 07-31-2024 End: 07-31-2024 ambulatory Karon NOVAK Facility:[facility] Start: 07-28-2024 End: 07-28-[address] Monika Staley MD Work Phone: [facility] Work Phone: Start: 07-28-2024 End: 07-28-2024 Departed Referred [facility] Start: 07-28-2024 Registered Referred Karon Pradoctuary Kathy [email or web address] Start: 07-28-2024 End: 07-28-2024 ambulatory Karon Corrales OLS Facility:[facility] Start: 07-25-2024 End: 07-25-[address] Monika Staley MD Work Phone: [facility] Work Phone: Start: 07-25-2024 End: 07-25-2024 Departed Referred Carlos Cavazos -[employer] [employer] Start: 07-25-2024 Registered Referred Carlos Cavazos - [facility] [email or web address] Start: 07-24-2024 End: 07-25-[address] Monika Staley MD Work Phone: [facility] Work Phone: Start: 07-24-2024 End: 07-24-2024 Departed Referred Karon Corrales MD -[employer] Start: 07-24-2024 Registered Referred Karon casillas MD -[employer] Start: 07-24-2024 End: 07-24-2024 ambulatory Karon Corrales OLS Facility:[facility] Start: 07-21-2024 End: 07-21-[address] Monika Staley MD Work Phone: [facility] Work Phone: Start: 07-21-2024 End: 07-21-2024 Departed Referred Karon Corrales MD -[employer] Start: 07-21-2024 Registered Referred Karon casillas MD -[employer] Start: 07-21-2024 End: 07-21-2024 ambulatory Karon Corrales OLS Facility:[facility] Start: 07-17-2024 End: 07-17-[address] Monika Staley MD Work Phone: [facility] Work Phone: Start: 07-17-2024 End: 07-17-2024 Departed Referred Karon Corrales MD -[employer] Start: 07-17-2024 Registered Referred Karon casillas MD -[employer] Start: 07-17-2024 End: 07-17-2024 ambulatory Karon NOVAK Facility:[facility] Start: 07-14-2024 End: 07-14-[address] Monika Staley MD Work Phone: [facility] Work Phone: Start: 07-14-2024 End: 07-14-2024 Departed Referred Carlos Cavazos -[employer] Start: 07-14-2024 Registered Referred Carlos Cavazos - [employer] Start: 07-14-2024 End: 07-14-2024 ambulatory Carlos NOVAK Facility:[facility] Start: 07-11-2024 End: 07-11-[address] Monika Staley MD Work Phone: [facility] Work Phone: Start: 07-11-2024 End: 07-11-2024 Departed Referred Carlos Cavazos -[employer] Start: 07-11-2024 Registered Referred Carlos Cavazos - [employer] Start: 07-11-2024 End: 07-11-2024 ambulatory Carlos NOVAK Facility:[facility] Start: 07-07-2024 End: 07-07-[address] Monika Staley MD Work Phone: [facility] Work Phone: Start: 07-07-2024 End: 07-07-2024 Departed Referred Karon Crorales MD -[employer] Start: 07-07-2024 Registered Referred [facility] Start: 07-07-2024 End: 07-07-2024 ambulatory Karon NOVAK Facility:[facility] Start: 07-03-2024 End: 07-03-[address] Monika Staley MD Work Phone: [facility] Work Phone: Start: 07-03-2024 End: 07-03-2024 Departed Referred Kvng Crisostomo MD -[employer] [facility] Start: 07-03-2024 Registered Referred Kvng Crisostomo MD -[employer] [facility] Start: 07-03-2024 End: 07-03-2024 ambulatory Kvng NOVAK Facility:[facility] Start: 06-30-2024 End: 06-30-[address] Monika Staley MD Work Phone: [facility] Work Phone: Start: 06-30-2024 End: 06-30-2024 Departed Referred Kvng Crisostomo MD -[employer] [facility] Start: 06-30-2024 Registered Referred Kvng Crisostomo MD -[employer] [facility] Start: 06-30-2024 End: 06-30-2024 ambulatory Kvng NOVAK Facility:[facility] Start: 06-26-2024 ambulatory Kvng NOVAK Fac ility:[facility] Start: 06-26-2024 Registered Referred Kvng Crisostomo MD -[employer] [facility] Start: 06-23-2024 End: 06-23-[address] Monika Staley MD Work Phone: [facility] Work Phone: Start: 06-23-2024 End: 06-23-2024 Departed Referred Carlos Cavazos -[employer] Start: 06-23-2024 Registered Referred Carlos Cavazos - [employer] Start: 06-23-2024 End: 06-23-2024 ambulatory Carlos NOVAK Facility:[facility] Start: 06-19-2024 End: 06-19-[address] Monika Staley MD Work Phone: [facility] Work Phone: Start: 06-19-2024 End: 06-19-2024 Departed Referred Kvng Crisostomo MD -[employer] [facility] Start: 06-19-2024 Registered Referred Kvng Crisostomo MD -[employer] [facility] Start: 06-19-2024 End: 06-19-2024 ambulatory Kvng NOVAK Facility:[facility] Start: 06-16-2024 End: 06-16-[address] Monika Staley MD Work Phone: [facility] Work Phone: Start: 06-16-2024 End: 06-16-2024 Departed Referred Kvng Crisostomo MD -[facility] [facility] Start: 06-16-2024 Registered Referred Kvng Crisosotmo MD -[facility] [facility] Start: 06-16-2024 End: 06-16-2024 ambulatory Kvng Jonesur SCARLET Facility:[facility] Start: 06-12-2024 End: 06-12-[address] Monika Staley MD Work Phone: [facility] Work Phone: Start: 06-12-2024 End: 06-12-2024 Departed Referred Kvng Crisostomo MD -[facility] [email or web address] Start: 06-12-2024 Registered Referred Kvng Crisostomo MD -[facility] [email or web address] Start: 06-12-2024 End: 06-12-2024 ambulatory Vicentesigifredogerson Jonesur SCARLET Facility:[facility] Start: 06-09-2024 End: 06-09-[address] Monika Staley MD Work Phone: [facility] Work Phone: Start: 06-09-2024 End: 06-09-2024 Departed Referred Carlos Chavez [email or web address] Start: 06-09-2024 Registered Referred Carlos [facility] Start: 06-09-2024 End: 06-09-2024 ambulatory Carlos NOVAK Facility:[facility] Start: 06-05-2024 End: 06-05-[address] Monika Staley MD Work Phone: [facility] Work Phone: Start: 06-05-2024 End: 06-05-2024 Departed Referred Kvng Crisostomo MD -[employer] [employer] Start: 06-05-2024 End: 06-05-2024 ambulatory Kvng NOVAK Facility:[facility] Start: 06-02-2024 End: 06-02-[address] Monika Staley MD Work Phone: [facility] Work Phone: Start: 06-02-2024 End: 06-02-2024 Departed Referred Kvng Crisostomo MD -[employer] Start: 06-02-2024 Registered Referred Kvng Crisostomo MD -[employer] Start: 06-02-2024 End: 06-02-2024 ambulatory Kvng NOVAK Facility:[facility] Start: 05-29-2024 End: 05-29-[address] Monika Staley MD Work Phone: [facility] Work Phone: Start: 05-29-2024 End: 05-29-2024 Departed Referred Kvng Crisostomo MD -[employer] Start: 05-29-2024 Registered Referred Kvng Crisostomo MD -[employer] Start: 05-29-2024 End: 05-29-2024 ambulatory Kvng NOVAK Facility:[facility] Start: 05-26-2024 End: 05-26-[address] Monika Staley MD Work Phone: [facility] Work Phone: Start: 05-26-2024 End: 05-26-2024 Departed Referred Carlos Cavazos -[employer] Start: 05-26-2024 Registered Referred Carlos Reeder [facility] Start: 05-26-2024 End: 05-26-2024 ambulatory Carlos NOVAK Facility:[facility] Start: 05-22-2024 ambulatory Kvng NOVAK Fac ility:[facility] Start: 05-22-2024 Registered Ref[facility] Start: 05-20-2024 End: 05-20-2024 Departed Referred [facility] Start: 05-19-2024 End: 05-20-2024 ambulatory Kvng NOVAK Facility:[facility] Start: 05-19-2024 Registered Referred [facility] Start: 05-15-2024 End: 05-15-2024 Departed Referred [facility] Start: 05-15-2024 End: 05-15-2024 ambulatory Kvng NOVAK Facility:[facility] Start: 05-12-2024 End: 05-12-2024 Departed Referred Carlos Cavazos -[facility] [facility] Start: 05-12-2024 End: 05-12-2024 ambulatory Carlos NOVAK Facility:[facility] Start: 05-09-2024 End: 05-09-2024 Departed Referred [facility] Start: 05-09-2024 End: 05-09-2024 ambulatory Kvng NOVAK Facility:[facility] Start: 05-08-2024 End: 05-08-2024 Departed Referred [facility] Start: 05-08-2024 End: 05-08-2024 ambulatory Kvng NOVAK Facility:[facility] Start: 05-05-2024 End: 05-05-2024 Departed Referred [facility] Start: 05-05-2024 End: 05-05-2024 ambulatory Kvng NOVAK Facility:[facility] Start: 05-01-2024 End: 05-01-2024 Departed Referred Kvng Crisostomo MD -[facility] Start: 05-01-2024 End: 05-01-2024 ambulatory Kvng NOVAK Facility:[facility] Start: 04-28-2024 End: 04-28-2024 Departed Referred Carlos Cavazos -[facility] Start: 04-28-2024 End: 04-28-2024 ambulatory Monika Staley Facility:[facility] Start: 04-24-2024 End: 04-24-2024 Departed Referred Kvng Crisostomo MD -[facility] Start: 04-24-2024 End: 04-24-2024 ambulatory Kvng NOVAK Facility:[facility] Start: 04-21-2024 End: 04-21-2024 Departed Referred Carlos Cavazos -[facility] [facility] Start: 04-21-2024 End: 04-21-2024 ambulatory Carlos NOVAK Facility:[facility] Start: 04-17-2024 ambulatory AviskarolVijay NOVAK Fac ility:[facility] Start: 04-17-2024 Registered Referred Kvng Crisostomo MD -[facility] Start: 04-14-2024 ambulatory Kvng NOVAK Fac ility:[facility] Start: 04-14-2024 Registered Referred Kvng Crisostomo MD -[facility] Start: 04-10-2024 End: 04-10-2024 Departed Referred Kvng Crisostomo MD -[facility] Start: 04-10-2024 End: 04-10-2024 ambulatory Kvng NOVAK Facility:[facility] Start: 04-07-2024 End: 04-07-2024 Departed Referred Carlos [facility] Start: 04-07-2024 End: 04-07-2024 ambulatory Carlos NOVAK Facility:[facility] Start: 04-04-2024 ambulatory Kvng NOVAK Fac ility:[facility] Start: 04-04-2024 Registered Referred Kvng Crisostomo MD -[facility] Start: 03-31-2024 End: 03-31-2024 Departed Referred Carlos Cavazos -[facility] Start: 03-31-2024 End: 03-31-2024 ambulatory Carlos NOVAK Facility:[facility] Start: 03-27-2024 End: 03-27-2024 Departed Referred [facility] Start: 03-27-2024 End: 03-27-2024 ambulatory [facility] Facility:[facility] Start: 03-24-2024 End: 03-24-2024 Departed Referred Kvng Crisostomo MD -[facility] Start: 03-24-2024 End: 03-24-2024 ambulatory Kvng NOVAK Facility:[facility] Start: 03-20-2024 End: 03-20-2024 Departed Referred [facility] Start: 03-20-2024 End: 03-20-2024 ambulatory [facility] Facility:[facility] Start: 03-19-2024 End: 03-19-2024 Departed Referred Kvng Crisostomo MD -[facility] Start: 03-19-2024 End: 03-19-2024 ambulatory Kvng NOVAK Facility:[facility] Start: 03-18-2024 End: 03-18-2024 Departed Referred [facility] Start: 03-18-2024 End: 03-18-2024 ambulatory [facility] Facility:[facility] Start: 03-17-2024 End: 03-17-2024 Departed Referred [facility] Start: 03-17-2024 End: 03-17-2024 ambulatory [facility] Facility:[facility] Start: 03-14-2024 End: 03-14-2024 Departed Referred Carlos Cavazos -[facility] Start: 03-14-2024 End: 03-14-2024 ambulatory Carlos NOVAK Facility:[facility] Start: 03-13-2024 End: 03-13-2024 Departed Referred [facility] Start: 03-13-2024 End: 03-13-2024 ambulatory [facility] Facility:[facility] Start: 03-10-2024 End: 03-10-2024 ambulatory [facility] Facility:[facility] Start: 03-06-2024 End: 03-06-2024 ambulatory [facility] Facility:[facility] Start: 03-03-2024 End: 03-03-2024 ambulatory [facility] Facility:[facility] Start: 02-28-2024 End: 02-28-2024 ambulatory [facility] Facility:[facility] Start: 02-25-2024 End: 02-25-2024 ambulatory Carlos NOVAK Facility:[facility] Start: 02-21-2024 End: 02-21-2024 ambulatory [facility] Facility:[facility] Start: 02-18-2024 End: 02-18-2024 ambulatory [facility] Facility:[facility] Start: 02-14-2024 End: 02-14-2024 ambulatory [facility] Facility:[facility] Start: 02-12-2024 End: 02-12-2024 ambulatory Carlos NOVAK Facility:[facility] Start: 02-11-2024 End: 02-11-2024 ambulatory [facility] Facility:[facility] Start: 02-08-2024 End: 02-08-2024 ambulatory Carlos NOVAK Facility:[facility] Start: 02-07-2024 End: 02-07-2024 ambulatory Carlos NOVAK Facility:[facility] Start: 02-04-2024 End: 02-04-2024 ambulatory Monika Staley Facility:[facility] Start: 02-01-2024 ambulatory Carlos NOVAK Faci lity:[facility] Start: 01-30-2024 End: 01-30-2024 ambulatory Carlos NOVAK Facility:[facility] Start: 01-29-2024 End: 01-29-2024 ambulatory [facility] Facility:[facility] Start: 01-21-2024 End: 01-21-2024 ambulatory Carlos Katsaros OLS Facility:[facility] Start: 01-14-2024 End: 01-14-2024 ambulatory Carlos Katsaros OLS Facility:[facility] Start: 01-11-2024 ambulatory Carlos Katsaros OLS Faci lity:[facility] Start: 01-10-2024 End: 01-10-2024 ambulatory [facility] Facility:[facility] Start: 01-08-2024 End: 01-08-2024 ambulatory Carlos Katsaros OLS Facility:[facility] Start: 01-01-2024 End: 01-02-2024 ambulatory Carlos Katsaros OLS Facility:[facility] Start: 12-27-2023 End: 12-27-2023 ambulatory Carlos Katsaros OLS Facility:[facility] Start: 12-24-2023 End: 12-24-2023 ambulatory Carlos Katsaros OLS Facility:[facility] Start: 12-17-2023 End: 12-17-2023 ambulatory Carlos Katsaros OLS Facility:[facility] Start: 12-04-2023 End: 12-04-2023 ambulatory Carlos Katsaros OLS Facility:[facility] Start: 12-03-2023 End: 12-03-2023 ambulatory Carlos Katsaros OLS Facility:[facility] Start: 11-30-2023 End: 11-30-2023 ambulatory Carlos Katsaros OLS Facility:[facility] Start: 11-27-2023 End: 11-27-2023 ambulatory Carlos Katsaros OLS Facility:[facility] Start: 11-26-2023 End: 11-26-2023 ambulatory Peter Katsaros OLS Facility:[facility] Start: 11-23-2023 End: 11-23-2023 ambulatory Peter Katsaros OLS Facility:[facility] Start: 11-21-2023 End: 11-21-2023 ambulatory Peter Katsaros OLS Facility:[facility] Start: 11-19-2023 End: 11-19-2023 ambulatory Carlos Katsaros OLS Facility:[facility] Start: 11-12-2023 ambulatory Carlos Katsaros OLS Faci lity:[facility] Start: 11-09-2023 ambulatory Carlos NOVAK Faci lity:[facility] Start: 10-25-2023 ambulatory Carlos NOVAK Faci lity:[facility] Start: 10-18-2023 ambulatory Carlos NOVAK Faci lity:[facility] Start: 09-13-2023 End: 09-13-2023 ambulatory [facility] Start: 09-13-2023 End: 09-13-2023 Office outpatient visit 25 minutes Rebecca Buck MD Work Phone: [facility] Comment on above: Left flank pain (Christina magui Dx); BPH with urinary obstruction; History of kidney stones Start: 09-06-2023 End: 09-07-2023 ambulatory [facility] Start: 09-06-2023 End: 09-06-2023 Subsequent hospital visit by physician Rebecca Buck MD Work Phone: [facility] CT Imaging Comment on above: Left flank pain; Calculus of ureter Start: 08-31-2023 ambulatory [facility] Start: 08-31-2023 Patient encounter procedure Eloise Armendariz Clinical Communication Start: 08-21-2023 Telephone encounter Rebecca Buck MD Work Phone: [facility] Clinical Communication Comment on above: CT appt Boaz advice Start: 08-21-2023 Registered Referred [facility] Start: 08-13-2023 End: 08-13-2023 ambulatory [facility] Start: 08-13-2023 End: 08-13-2023 Office outpatient new 45 minutes Rebecca Buck MD Work Phone: [facility] Comment on above: Left flank pain (Christina magui Dx); Calculus of ureter; Disease of prostate; BPH with urinary obstruction Start: 08-03-2023 End: 08-03-2023 ambulatory [facility] Work Phone: Start: 08-03-2023 End: 08-03-2023 Departed Referred [facility] Start: 07-20-2023 End: 07-20-2023 ambulatory [facility] Work Phone: Start: 07-20-2023 End: 07-20-2023 [facility] Start[facility] 07-20-[facility]23 [facility] Start: 07-18-2023 End: 07-18-2023 ambulatory [facility] Work Phone: Start: 07-18-2023 End: 07-18-2023 [facility] Start: 07-18-2023 [facility] Start: 07-16-2023 End: 07-16-2023 ambulatory [facility] Work Phone: Start: 07-16-2023 End: 07-16-2023 [facility] Start: 07-16-2023 [facility] Start: 07-13-2023 End: 07-13-2023 ambulatory [facility] Work Phone: Start: 07-13-2023 End: 07-13-2023 [facility] Start: 07-13-2023 [facility] Start: 07-12-2023 End: 07-12-2023 ambulatory [facility] Work Phone: Start: 07-12-2023 End: 07-12-2023 [facility] Start: 07-12-2023 [facility] Start: 07-05-2023 End: 07-05-2023 ambulatory [facility] Work Phone: Start: 07-05-2023 End: 07-05-2023 [facility] Start: 07-05-2023 [facility] Start: 07-02-2023 [facility] Start: 06-28-2023 End: 06-28-2023 ambulatory [facility] Work Phone: Start: 06-28-2023 End: 06-28-2023 [facility] Start: 06-28-2023 [facility] Start: 06-25-2023 Telephone encounter Rebecca Buck MD Work Phone: [facility] Start: 06-25-2023 End: 06-25-2023 ambulatory [facility] Work Phone: Start: 06-25-2023 End: 06-25-2023 [facility] Start: 06-25-2023 [facility] Start: 06-21-2023 End: 06-21-2023 ambulatory [facility] Work Phone: Start: 06-21-2023 End: 06-21-2023 [facility] Start: 06-21-2023 [facility] Start: 06-13-2023 End: 06-13-2023 ambulatory [facility] Work Phone: Start: 06-13-2023 End: 06-13-2023 [facility] Start: 06-06-2023 End: 06-06-2023 ambulatory [facility] Work Phone: Start: 06-06-2023 End: 06-06-2023 [facility] Start: 06-06-2023 [facility] Start: 05-23-2023 End: 05-23-2023 ambulatory [facility] Work Phone: Start: 05-23-2023 End: 05-23-2023 Departed Referred [facility] Start: 05-09-2023 End: 05-09-2023 Departed Referred [facility] Start: 05-09-2023 Registered [facility] Start: 04-23-2023 End: 04-23-2023 [facility] Start: 04-09-2023 End: 04-09-2023 ambulatory [facility] Work Phone: Start: 04-09-2023 End: 04-09-2023 [facility] Start: 04-09-2023 [facility] Start: 04-02-2023 End: 04-02-2023 ambulatory [facility] Work Phone: Start: 04-02-2023 End: 04-02-2023 [facility] Start: 04-02-2023 [facility] Start: 03-26-2023 End: 03-26-2023 ambulatory [facility] Work Phone: Start: 03-26-2023 End: 03-26-2023 [facility] Start: 03-26-2023 [facility] Start: 03-22-2023 End: 03-22-2023 ambulatory [facility] Work Phone: Start: 03-22-2023 End: 03-22-2023 [facility] Start: 03-22-2023 [facility] Start: 03-08-2023 End: 03-08-2023 ambulatory [facility] Work Phone: Start: 03-08-2023 End: 03-08-2023 Departed Referred [facility] Start: 02-22-2023 End: 02-22-2023 ambulatory [facility] Work Phone: Start: 02-22-2023 End: 02-22-2023 Departed Referred [facility] Start: 02-22-2023 Registered Referred [facility] Start: 02-15-2023 End: 02-15-2023 ambulatory [facility] Work Phone: Start: 02-15-2023 End: 02-15-2023 Departed Referred [facility] Start: 02-15-2023 Registered [facility] Start: 02-08-2023 End: 02-08-2023 ambulatory [facility] Work Phone: Start: 02-08-2023 End: 02-08-2023 Departed Referred [facility] Start: 01-31-2023 End: 01-31-2023 ambulatory [facility] Work Phone: Start: 01-31-2023 End: 01-31-2023 Departed Referred [facility] Start: 01-31-2023 Registered [facility] Start: 01-29-2023 End: 01-29-2023 Departed Referred [facility] Start: 01-29-2023 [facility] Start: 01-26-2023 End: 01-26-2023 Departed Referred [facility] Start: 01-26-2023 [facility] Start: 01-24-2023 End: 01-24-2023 Departed Referred [facility] Start: 01-24-2023 Registered [facility] Start: 01-22-2023 End: 01-22-2023 ambulatory [facility] Work Phone: Start: 01-22-2023 End: 01-22-2023 [facility] Start: 01-22-2023 [facility] Start: 01-10-2023 End: 01-10-2023 ambulatory [facility] Work Phone: Start: 01-10-2023 End: 01-10-2023 [facility] Start: 01-10-2023 [facility] Start: 12-27-2022 End: 12-27-2022 ambulatory [facility] Work Phone: Start: 12-27-2022 End: 12-27-2022 [facility] Start: 12-27-2022 [facility] Start: 12-21-2022 End: 12-21-2022 ambulatory [facility] Work Phone: Start: 12-21-2022 End: 12-21-2022 [facility] Start: 12-21-2022 [facility] Start: 12-14-2022 End: 12-14-2022 ambulatory [facility] Work Phone: Start: 12-14-2022 End: 12-14-2022 [facility] Start: 12-14-2022 [facility] Start: 12-07-2022 End: 12-07-2022 ambulatory [facility] Work Phone: Start: 12-07-2022 End: 12-07-2022 Departed [facility]erred [facility] Start: 12-07-2022 Registered [facility] Start: 11-24-2022 End: 11-24-2022 ambulatory [facility] Work Phone: Start: 11-24-2022 End: 11-24-2022 [facility] Start: 11-24-2022 [facility] Start: 11-23-2022 End: 11-23-2022 ambulatory [facility] Work Phone: Start: 11-23-2022 End: 11-23-2022 [facility] Start: 11-23-2022 [facility] Start: 11-22-2022 End: 11-22-2022 ambulatory [facility] Work Phone: Start: 11-22-2022 End: 11-22-2022 [facility] Start: 11-22-2022 Registered [facility] Start: 11-09-2022 End: 11-09-2022 ambulatory [facility] Work Phone: Start: 11-09-2022 End: 11-09-2022 [facility] Start: 11-09-2022 Registered [facility] Start: 10-26-2022 End: 10-26-2022 [facility] Start: 10-26-2022 Registered Ref[facility] Start: 10-12-2022 End: 10-12-2022 ambulatory [facility] Work Phone: Start: 10-12-2022 End: 10-12-2022 Dep[facility]ed [facility] Start: 10-12-2022 Registered [facility] Start: 10-05-2022 End: 10-05-2022 [facility] Start: 10-05-2022 Registered [facility] Start: 09-28-2022 End: 09-28-2022 ambulatory [facility] Work Phone: Start: 09-28-2022 End: 09-28-2022 [facility] Start: 09-14-2022 End: 09-14-2022 [facility] Start: 08-31-2022 End: 08-31-2022 [facility] Start: 08-31-2022 [facility] Start: 08-23-2022 End: 08-23-2022 ambulatory [facility] Work Phone: Start: 08-23-2022 End: 08-23-2022 [facility] Start: 08-23-2022 [facility] Start: 08-17-2022 End: 08-17-2022 ambulatory [facility] Work Phone: Start: 08-17-2022 End: 08-17-2022 [facility] Start: 08-17-2022 [facility] Start: 08-14-2022 End: 08-14-2022 ambulatory [facility] Work Phone: Start: 08-14-2022 End: 08-14-2022 [facility] Start: 08-14-2022 [facility] Start: 07-31-2022 End: 07-31-2022 ambulatory [facility] Work Phone: Start: 07-31-2022 End: 07-31-2022 [facility] Start: 07-31-2022 [facility] Start: 07-24-2022 End: 07-24-2022 ambulatory [facility] Work Phone: Start: 07-24-2022 End: 07-24-2022 [facility] Start: 07-24-2022 [facility] Start: 07-20-2022 End: 07-20-2022 [facility] Start: 07-20-2022 [facility] Start: 07-17-2022 End: 07-17-2022 [facility] Start: 07-17-2022 [facility] Start: 07-11-2022 [facility] Start: 07-10-2022 End: 07-10-2022 ambulatory [facility] Work Phone: Start: 07-10-2022 End: 07-10-2022 [facility] Start: 07-10-2022 [facility] Start: 07-03-2022 End: 07-03-2022 ambulatory [facility] Work Phone: Start: 07-03-2022 End: 07-03-2022 [facility] Start: 07-03-2022 [facility] Start: 06-27-2022 End: 06-27-2022 ambulatory [facility] Work Phone: Start: 06-27-2022 End: 06-27-2022 [facility] Start: 06-27-2022 [facility] Start: 06-13-2022 End: 06-13-2022 ambulatory [facility] Work Phone: Start: 06-13-2022 End: 06-13-2022 [facility] Start: 06-13-2022 [facility] Start: 06-06-2022 End: 06-06-2022 ambulatory [facility] Work Phone: Start: 06-06-2022 End: 06-06-2022 [facility] Start: 06-06-2022 [facility] Start: 05-30-2022 End: 05-30-2022 ambulatory [facility] Work Phone: Start: 05-30-2022 End: 05-30-2022 [facility] Start: 05-30-2022 [facility] Start: 05-16-2022 End: 05-16-2022 ambulatory [facility] Work Phone: Start: 05-16-2022 End: 05-16-2022 [facility] Start: 05-16-2022 [facility] Start: 05-02-2022 End: 05-02-2022 ambulatory [facility] Work Phone: Start: 05-02-2022 End: 05-02-2022 [facility] Start: 05-02-2022 [facility] Start: 04-27-2022 End: 04-27-2022 ambulatory [facility] Work Phone: Start: 04-27-2022 End: 04-27-2022 [facility] Start: 04-27-2022 Registered [facility] Start: 04-26-2022 End: 04-26-2022 ambulatory [facility] Work Phone: Start: 04-26-2022 End: 04-26-2022 [facility] Start: 04-11-2022 End: 04-11-2022 ambulatory [facility] Work Phone: Start: 04-11-2022 End: 04-11-2022 [facility] Start: 03-28-2022 End: 03-28-2022 [facility] Start: 03-28-2022 Registered [facility] Start: 03-23-2022 End: 03-23-2022 [facility] Start: 03-23-2022 Registered [facility] Start: 03-16-2022 End: 03-16-2022 ambulatory [facility] Work Phone: Start: 03-16-2022 End: 03-16-2022 [facility] Start: 03-16-2022 [facility] Start: 03-09-2022 End: 03-09-2022 ambulatory [facility] Work Phone: Start: 03-09-2022 End: 03-09-2022 [facility] Start: 03-09-2022 Registered [facility] Start: 03-06-2022 End: 03-06-2022 ambulatory [facility] Work Phone: Start: 03-06-2022 End: 03-06-2022 [facility] Start: 03-06-2022 [facility] Start: 03-02-2022 End: 03-03-2022 Emergency department patient visit UNKNOWN PROVIDER [facility] Start: 03-02-2022 End: 03-02-2022 Emergency department patient visit Lanette Mugnuia Work Phone: [facility] Emergency Dept Comment on above: Fall, initial encoun ter (Primary Dx); Anticoagulated Start: 02-20-2022 End: 02-20-2022 Departed Referred [facility] Start: 02-20-2022 Registered Referred [facility] Start: 02-13-2022 End: 02-13-2022 ambulatory [facility] Work Phone: Start: 02-13-2022 End: 02-13-2022 Departed Referred [facility] Start: 02-13-2022 [facility] Start: 02-06-2022 End: 02-06-2022 ambulatory [facility] Work Phone: Start: 02-06-2022 End: 02-06-2022 [facility] Start: 02-06-2022 [facility] Start: 01-30-2022 End: 01-30-2022 [facility] Start: 01-30-2022 [facility] Start: 01-26-2022 End: 01-26-2022 ambulatory [facility] Work Phone: Start: 01-26-2022 End: 01-26-2022 [facility] Start: 01-26-2022 [facility] Start: 01-19-2022 End: 01-19-2022 ambulatory [facility] Work Phone: Start: 01-19-2022 End: 01-19-2022 [facility] Start[facility] 01-19-2022 [facility] Start: 01-17-2022 ambulatory [facility] Start: 01-10-2022 [facility] Start: 01-10-2022 End: 01-10-2022 ambulatory [facility] Work Phone: Start: 01-10-2022 End: 01-10-2022 [facility] Start: 01-10-2022 [facility] Start: 01-06-2022 AUDIT Monika Elias rt Work Phone: [facility] Work Phone: Start: 01-05-2022 End: 01-05-2022 [facility] Start: 01-05-2022 [facility] Start: 12-30-2021 End: 12-30-2021 [facility] Start: 12-30-2021 [facility] Start: 12-28-2021 End: 12-28-2021 ambulatory [facility] Work Phone: Start: 12-28-2021 End: 12-28-2021 [facility] Start: 12-28-2021 [facility] Start: 12-26-2021 End: 12-26-2021 ambulatory [facility] Work Phone: Start: 12-26-2021 End: 12-26-2021 [facility] Start: 12-26-2021 Registered [facility] Start: 12-22-2021 End: 12-22-2021 ambulatory [facility] Work Phone: Start: 12-22-2021 End: 12-22-2021 Departed Referred [facility] Start: 12-22-2021 Registered Referred [facility] [employer] [facility] Start: 12-22-2021 End: 12-22-2021 [facility] Start: 12-21-2021 End: 12-22-2021 Emergency department patient visit Sharon Olivia MD Work Phone: [facility] Emergency Dept Comment on above: Heel ulceration, lef t, with unspecified severity (HCC) (Primary Dx) Start: 12-19-2021 End: 12-19-2021 ambulatory [facility] Work Phone: Start: 12-19-2021 End: 12-19-2021 Departed Referred [facility] [employer] [facility] Start: 12-19-2021 Registered Referred [facility] Start: 12-12-2021 End: 12-12-2021 ambulatory [facility] Work Phone: Start: 12-12-2021 End: 12-12-2021 Departed Referred [facility] [employer] [facility] Start: 12-12-2021 Registered Referred [facility] [employer] [facility] Start: 12-08-2021 End: 12-08-2021 ambulatory [facility] Work Phone: Start: 12-08-2021 End: 12-08-2021 Departed Referred [facility] [employer] [facility] Start: 12-08-2021 Registered Referred [facility] [employer] [facility] Start: 12-05-2021 End: 12-05-2021 ambulatory [facility] Work Phone: Start: 12-05-2021 End: 12-05-2021 [facility] Start: 12-05-2021 [facility] Start: 12-01-2021 End: 12-01-2021 [facility] Start: 12-01-2021 [facility] Start: 11-28-2021 End: 11-28-2021 [facility] Start: 11-28-2021 [facility] Start: 11-25-2021 Rx Renewal Monika Elias rt Work Phone: [facility]-[id number]-Rjqdn Work Phone: Start: 11-23-2021 End: 11-23-2021 [facility] Start: 11-23-2021 [facility] Start: 11-22-2021 End: 11-22-2021 [facility] Start: 11-22-2021 [facility] Start: 11-21-2021 End: 11-21-2021 [facility] Start: 11-15-2021 AUDIT Monika Elias rt Work Phone: [facility]-Bskpqiusas-[id number] Work Phone: Start: 11-14-2021 End: 11-14-2021 [facility] Start: 11-14-2021 [facility] Start: 11-08-2021 End: 11-08-2021 [facility] Start: 11-08-2021 [facility] Start: 11-04-2021 End: 11-04-2021 Departed Referred [facility] [employer] Start: 11-04-2021 Registered Referred [facility] Start: 10-31-2021 End: 11-01-2021 Emergency department patient visit UNKNOWN PROVIDER [facility] Start: 10-31-2021 End: 11-01-2021 Emergency department patient visit Dante Kim MD Work Phone: [facility] Emergency Dept Comment on above: Other fatigue (Prima ry Dx) Start: 10-31-2021 End: 10-31-2021 Departed Referred [facility] [employer] Start: 10-21-2021 End: 10-29-2021 Evaluation and management of inpatient UNKNOWN PROVIDER [facility] Start: 10-21-2021 End: 10-29-2021 Evaluation and management of inpatient Lisa Michelle Work Phone: [facility] Comment on above: Leg swelling (Primar y Dx); Acute deep vein thrombosis (DVT) of proximal vein of lower extremity, unspecified laterality (HCC) Start: 10-20-2021 End: 10-20-2021 Departed Referred [facility] [employer] Start: 10-17-2021 Telephone encounter Nicole davis MD Work Phone: [facility] Comment on above: Missed Appointment Start: 09-19-2021 End: 09-19-2021 Departed Referred [facility] [employer] [facility] Start: 11-02-2020 AUDIT Monika Elias rt Work Phone: [facility] Work Phone: Start: 10-27-2020 AUDIT Monika Elias rt Work Phone: [facility] Work Phone: Start: 07-13-2020 Patient encounter procedure Monika Staley [facility] Work Phone: Start: 04-13-2020 Patient encounter procedure Wing Ritter [facility] Work Phone: Start: 04-07-2020 Patient encounter procedure Wing Ritter [facility] Work Phone: Start: 03-18-2020 Patient encounter procedure Wing Ritter [facility] Work Phone: Start: 01-20-2020 Patient encounter procedure Monika Staley MD SJ-[id number]-[id number] Work Phone: Start: 11-13-2019 End: 11-13-2019 Subsequent hospital visit by physician [facility] Comment on above: Non-pressure chronic ulcer left lower leg, 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 Monika Staley MD Work Phone: Comment on above: This test was perfor med using the [employer] tPSA method. Measured values of a patient sample can vary depending on the testing procedure used. PSA values determined on patient samples by different testing procedures cannot be used interchangeably. If there is a change in PSA assays while monitoring therapy, sequential testing should be performed to confirm baseline values. Start: 07-17-2023 Urine culture Start: 01-22-2023 Urine culture Start: 11-24-2022 Urine culture Start: 03-02-2022 Comprehensive metabolic panel Lanette Munguia DO Work Phone: Start: 03-02-2022 Ct head/brain w/o co ntrast material Lanette Munguia DO Work Phone: Start: 12-23-2021 Follow-up visit Start: 12-22-2021 Basic metabolic pane l calcium total Travis Jameel LUI Work Phone: Start: 12-22-2021 C-reactive protein Henry Godoy Jameel PA Work Phone: Start: 12-22-2021 COVID-19, FLU A/B, A ND RSV COMBO Travis Jameel PA Work Phone: Start: 12-22-2021 Radex foot complete minimum 3 views Travis Jameel PA Work Phone: Start: 11-01-2021 Urnls dip stick/tabl et rgnt auto w/o microscopy Myron Duran MD Work Phone: Start: 10-31-2021 Ct head/brain w/o co ntrast material Myron Duran MD Work Phone: Start: 10-31-2021 Radiologic exam abdomen 1 view Myron Duran MD Work Phone: Start: 10-31-2021 Radiologic exam ches t single view Myron Duran MD Work Phone: Start: 10-31-2021 Ecg routine ecg w/le ast 12 lds w/i&r Myron Duran MD Work Phone: Start: 10-31-2021 Basic metabolic pane l calcium total Myron Duran MD Work Phone: Start: 10-31-2021 PROTIME/INR & PTT Myron Duran MD Work Phone: Start: 10-29-2021 POCT COVID-19, ANTIGEN Karon Corrales MD Work Phone: Start: 10-29-2021 Prothrombin time Andres Sheridan MD Work Phone: Start: 10-28-2021 Comprehensive metabolic panel Karon Corrales MD Work Phone: Start: 10-27-2021 Mri brain brain stem w/o contrast material Santino Barreto MD Work Phone: Start: 10-27-2021 Prothrombin time Andres Sheridan MD Work Phone: Start: 10-26-2021 Electroencephalogram w/rec awake&asleep Sarina Pineda PRINCIPAL SYSTEMS ARCHITECT - [employer] Work Phone: Start: 10-26-2021 Ct head/brain w/o co ntrast material Sarina Lomasver PRINCIPAL SYSTEMS ARCHITECT - [employer] Work Phone: Start: 10-26-2021 Prothrombin time Andres Sheridan MD Work Phone: Start: 10-25-2021 Speech and language therapy regime Sarina Pineda PRINCIPAL SYSTEMS ARCHITECT - [facility] Work Phone: Start: 10-25-2021 Prothrombin time Andres Sheridan MD Work Phone: Start: 10-24-2021 Basic metabolic pane l calcium total May Cash MD Start: 10-23-2021 NEURON SPECIFIC ENOLASE (NSE) Wing Srivastava MD Work Phone: Start: 10-23-2021 Mri abdomen w/o cont rast material Wing Srivastava MD Work Phone: Start: 10-23-2021 B-2 GLYCOPROTEIN (IGA) Wing Srivastava MD Work Phone: Start: 10-23-2021 B2 GLYCOPROTEIN I (IGM)AB Wing Srivastava MD Work Phone: Start: 10-23-2021 B2 GLYCOPROTEIN I IGG AB Wing Srivastava MD Work Phone: Start: 10-23-2021 Basic metabolic pane l calcium total May Cash MD Start: 10-23-2021 Immunoassay tumor an tigen quantitative ca 19-9 Wing Srivastava MD Work Phone: Start: 10-22-2021 Ct abdomen & pelvis w/o contrast material Wing Srivastava MD Work Phone: Start: 10-22-2021 Prothrombin time Andres Sheridan MD Work Phone: Start: 10-22-2021 Basic metabolic pane l calcium total May Cash MD Start: 10-21-2021 Blood count reticulo cyte automated Ellen Scherer PRINCIPAL SYSTEMS ARCHITECT - [employer] Work Phone: Start: 10-21-2021 C-reactive protein Doloresua juan c Massey Niesha PRINCIPAL SYSTEMS ARCHITECT - [employer] Work Phone: Start: 10-21-2021 Non-invas physiologi c std extremity art 2 level Shruthirodrigue Malik PRINCIPAL SYSTEMS ARCHITECT - [employer] Work Phone: Start: 10-21-2021 Radex calcaneus mini mum 2 views Shruthi Najma PRINCIPAL SYSTEMS ARCHITECT - [employer] Work Phone: Start: 10-21-2021 Dup-scan xtr veins c omplete bilateral study May Cash MD Start: 10-21-2021 Chest x-ray 1 view frontal May Cash MD Start: 10-21-2021 Pulmonary ventilatio n & perfusion imaging May Cash MD Start: 10-21-2021 Fibrin dgradj produc ts d-dimer quantitative May Cash MD Start: 10-21-2021 End: 10-21-2021 Basic metabolic panel calcium total Lisa Michelle DO Work Phone: Start: 08-09-2021 Antibody screen Comment on above: Order Comment: Speci men Type: BLOOD SPECIMENOrdering Facility: [facility] Address: [address] [place] [address] Performed By: #### T SCR ####[facility] BLOOD BANKCLIA [id number] [address] Start: 08-04-2021 Antibody screen Comment on above: Order Comment: Speci men Type: BLOOD SPECIMENOrdering Facility: [facility] Address: [address] [place] [address] Performed By: #### T SCR ####[facility] BLOOD BANKCLIA [id number] [address] Start: 08-01-2021 Antibody screen Comment on above: Order Comment: Speci men Type: BLOOD SPECIMENOrdering Facility: [facility] Address: [address] [place] [address] Performed By: #### T SCR ####[facility] BLOOD BANKCLIA [id number] [place] [address] [facility] Start: 06-07-2021 Antibody screen Comment on above: Order Comment: Speci men Type: BLOOD SPECIMEN Performed By: #### T SCR ####[facility] BLOOD BANKCLIA [id number] [place] [address] [facility] Start: 09-02-2020 Lipid 1996 panel - S bradly or Plasma Rebecca Buck MD Work Phone: Start: 04-07-2020 Echocardiography Wing Ritter Start: 11-13-2019 Radiologic examinati on tibia & fibula 2 views 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 (David Lewis Work Phone: Hernia repair Monika melvin History of Cholecystotomy An yvette Staley History of Creation Of Subdural-Peritoneal CSF Shunt Monika Staley 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 Start: 09-22-2026 DTaP/Tdap/Td vaccine (2 - Td) DTaP/Tdap/Td vaccine (2 - Td) [facility] Work Phone: Start: 09-22-2026 DTaP/Tdap/Td Vaccine s (2 - Td or Tdap) DTaP/Tdap/Td Vaccines (2 - Td or Tdap) [facility] Start: 09-02-2025 Lipid panel Lipid Panel [facility] Start: 08-22-2024 DIABETES SCREEN DIABETES SCREEN [facility] Start: 12-04-2023 Lipid panel Lipids [facility] Start: 12-04-2023 Lipid screen Lipid screen [facility] Work Phone: Start: 09-13-2023 End: 09-13-2023 Patient encounter procedure 09/13/2023 11:30 AM EDT Office Visit [facility] [address] [place] [address] Rebecca Buck MD [address] [address] [facility] Start: 08-31-2023 End: 08-31-2023 Patient encounter procedure 08/31/2023 9:30 AM EDT Appointment [facility] [address] [place] [id number] Rebecca Buck MD [address] [address] [facility] Imaging Start: 08-13-2023 End: 08-12-2024 Basic metabolic 1998 panel - Serum or Plasma Basic metabolic panel Lab Routine Calculus of ureter Expected: 08/13/2023 (Approximate), Expires: 08/12/2024 [facility] Comment on above: Expected: 08/13/2023 (Approximate), Expires: 08/12/2024 Start: 08-13-2023 End: 08-12-2024 CT Abdomen WO contrast CT abdomen pelvis wo IV contrast Imaging Routine Left flank pain Calculus of ureter Expected: 08/13/2023, Expires: 08/12/2024 [facility] Comment on above: Expected: 08/13/2023 , Expires: 08/12/2024 Start: 08-13-2023 End: 02-12-2024 PSA, Monitoring ([facility]) PSA, Monitoring ([facility]) Lab Routine Disease of prostate Expected: 08/13/2023 (Approximate), Expires: 02/12/2024 [facility] Work Phone: Comment on above: Expected: 08/13/2023 (Approximate), Expires: 02/12/2024 Start: 08-13-2023 End: 08-13-2023 Patient encounter procedure 08/13/2023 10:00 AM EDT Office Visit [facility] [address] [place] [phone] Rebecca Buck MD [address] [place] [address] [facility] Start: 07-17-2023 Bacteria identified in Urine by Culture [facility] Start: 07-17-2023 [facility] Start: 07-16-2023 Measurement of substance [facility] Start: 05-07-2023 Medicare Advantage A nnual Wellness Visit Medicare Advantage Annual Wellness Visit [facility] Start: 03-02-2023 Creatinine measurement Creatinine Le carmela [facility] Start: 03-02-2023 Potassium measurement Potassium Leve l [facility] Start: 08-22-2022 Diabetes mellitus screening Diabetes Screening [facility] Start: 01-05-2022 Influenza vaccination [facility] Start: 12-23-2021 EPV, Provider: Wing Ritter, Status: Pen, Time: 9:30 AM EPV, Provider: Wing Ritter, Status: Pen, Time: 9:30 AM IZ-Bricgmckwe-Zak ut Work Phone: Start: 12-05-2021 Influenza vaccination Flu vaccine (# 1) [facility] Start: 12-05-2021 Blood chemistry [facility] Work Phone: Start: 12-05-2021 Complete blood count [facility] Work Phone: Start: 12-05-2021 [facility] Work Phone: Start: 12-01-2021 [facility] Work Phone: Start: 08-05-2021 COVID-19 VACCINE (4 - Booster for Moderna series) COVID-19 VACCINE (4 - Booster for Moderna series) [facility] Start: 08-05-2021 COVID-19 Vaccine (4 - Booster for Pfizer series) COVID-19 Vaccine (4 - Booster for Pfizer series) [facility] Start: 06-01-2021 COVID-19 Vaccine (4 - Booster for Pfizer series) COVID-19 Vaccine (4 - Booster for Pfizer series) [facility] Start: 05-07-2021 ADVANCE DIRECTIVE DISCUSSION ADVANCE DIRECTIVE DISCUSSION [facility] Start: 08-11-2020 Screening for malign ant neoplasm of colon [facility] Start: 07-30-2020 Screening for malign ant neoplasm of colon [facility] Start: 01-20-2020 Echocardiography Echocardiogram MP-C ardiology-Med russ [address] [place] Work Phone: Start: 01-06-2020 Influenza vaccination INFLUENZA (#1) [facility] Start: 12-04-2019 Annual Wellness Visi t (AWV) Annual Wellness Visit (AWV) [facility] Start: 12-04-2019 Creatinine monitoring Creatinine mon itoring [facility] Work Phone: Start: 12-04-2019 Hepatitis C screen Hepatitis C scree n [facility] Work Phone: Comment on above: Postponed from 05/06 (Patient Refused) Start: 12-04-2019 Potassium monitoring Potassium monit oring [facility] Work Phone: Start: 12-04-2019 Prostate specific an tigen measurement Prostate Specific Antigen (PSA) Screening or Monitoring [facility] Start: 12-04-2019 Shingles Vaccine (1 of 2) Day gles Vaccine (1 of 2) [facility] Work Phone: Comment on above: Postponed from 05/06 (Patient Refused) Start: 06-07-2019 Colon Cancer Screen FIT/FOBT [facility] Work Phone: Start: 08-14-2017 LIPID SCREEN LIPID SCREEN [facility] Start: 2017 ADVANCE DIRECTIVE DISCUSSION ADVANCE DIRECTIVE DISCUSSION [facility] Start: 2017 PNEUMOCOCCAL: 65+ (1 - PCV) PNEUMOCOCCAL: 65+ (1 - PCV) [facility] Start: 2017 PNEUMOVAX AGE 65 AND OVER WITH 5YR LOOKBACK (#1) PNEUMOVAX AGE 65 AND OVER WITH 5YR LOOKBACK (#1) [facility] Start: 04-14-2016 DIABETES SCREEN DIABETES SCREEN [facility] Start: 2012 RSV Immunization age d 60 or older (1 - 1-dose 60+ series) RSV Immunization aged 60 or older (1 - 1-dose 60+ series) [facility] Start: 2007 PROSTATE CANCER SCRE ENING DISCUSSION PROSTATE CANCER SCREENING DISCUSSION [facility] Start: 2002 Shingles vaccine (1 of 2) Day gles vaccine (1 of 2) [facility] Start: 2002 SHINGRIX VACCINE (1 of 2) DAY GRIX VACCINE (1 of 2) [facility] Start: 2002 Tuberculosis screening COLOREC MONIQUE CANCER SCREENING,SEE MODIFIER [facility] Start: 2002 Zoster Vaccines (1 of 2) Zoste r Vaccines (1 of 2) [facility] Start: 1997 COLOGUARD (FIT-DNA) COLOGUARD (FIT-D NA) [facility] Start: 1997 Colonoscopy COLONOSCOPY [facility] Start: 1997 COLORECTAL CANCER SCREENING COLORECTAL CANCER SCREENING [facility] Start: [address] COLONOGRAPHY [facility] Start: 1997 FECAL OCCULT BLOOD FECAL OCCULT BLOO D [facility] Start: 1997 Screening for malign ant neoplasm of colon [facility] Start: 1997 SIGMOIDOSCOPY SIGMOIDOSCOPY [facility] Start: 1987 Diabetes screen Diabetes screen [facility] Start: 1971 Urine microalbumin profile DTAP,TDAP,TD (1 - Tdap) [facility] Start: 1970 ANNUAL PCP TEAM TEMPLE MARKER KEESHA DISEASE VISIT ANNUAL PCP TEAM CHRONIC DISEASE VISIT [facility] Start: 1970 BP CONTROLLED (<130/80) BP CONTROLLE D (<130/80) [facility] Start: 1970 Diabetes mellitus screening Diabetes Screening [facility] Start: 1970 HEPATITIS C SCREENING HEPATITIS C SC PHIL [facility] Start: 1970 Hepatitis C screening [facility] Start: 1964 Adult depression screening assessment DEPRESSION SCREENING [facility] Start: 1964 Depression Screen Depression Screen [facility] Start: 1962 Diabetic foot examination Diabetes: Foot Exam [facility] Start: 1962 Glaucoma screening Diabetes: R etinopathy Screening [facility] Start: 1962 Preventive dental service Diabetes: Dental Exam [facility] Start: 1952 Echocardiography Echocardiogram [facility] Start: 1952 Hemoglobin A1c measurement Diabetes: Hemoglobin A1C [facility] Start: 1952 Lipid panel [facility] Panel [facility] Start: 1952 Screening for malign ant neoplasm of colon [facility] Bacteria identified in Urine by Culture Urine Culture [facility] Work Phone: End: 03-02-2022 CBC W Auto Differential panel - Blood CBC with Auto Differential Lab Routine One Time for 1 Occurrences starting 03/02/2022 until 03/02/2022 [employer] Work Phone: Comment on above: One Time for 1 Occur rences starting 03/02/2022 until 03/02/2022 End: 03-02-2022 Comprehensive metabolic 2000 panel - Serum or Plasma Comprehensive Metabolic Panel Lab STAT One Time for 1 Occurrences starting 03/02/2022 until 03/02/2022 [employer] Work Phone: Comment on above: One Time for 1 Occur rences starting 03/02/2022 until 03/02/2022 End: 09-06-2023 CT Abdomen WO [facility] Work Phone: Comment on above: Once for 1 Occurrenc es starting 09/06/2023 until 09/06/2023 End: 12-22-2021 Culture, Blood 2 Culture, Blood 2 Microbiology STAT One Time for 1 Occurrences starting 12/22/2021 until 12/22/2021 [employer] Work Phone: Comment on above: One Time for 1 Occur rences starting 12/22/2021 until 12/22/2021 End: 12-22-2021 Microscopic examination of blood, culture Culture, Blood Microbiology STAT One Time for 1 Occurrences starting 12/22/2021 until 12/22/2021 [facility] Work Phone: Comment on above: One Time for 1 Occur rences starting 12/22/2021 until 12/22/2021 Microscopic examinat ion of blood, culture Culture, Blood Microbiology STAT 12/22/2021 12:22 AM EDT [facility] Work Phone: Oxygen therapy [Mini [facility] Data Set] Initiate Oxygen Therapy Protocol Respiratory Care Routine As Needed until discontinued starting 10/21/2021 [facility] Comment on above: As Needed until disc ontinued starting 10/21/2021 Protime-INR Protime-INR Lab Routine Daily until discontinued starting 10/23/2021, 7 completed [facility] Work Phone: Comment on above: Daily until disconti nued starting 10/23/2021, 7 completed End: 03-02-2022 Protime-INR Protime-INR Lab Routine One Time for 1 Occurrences starting 03/02/2022 until 03/02/2022 [facility] Work Phone: Comment on above: One Time for 1 Occur rences starting 03/02/2022 until 03/02/2022 Spirometry panel Incentive stef metry Respiratory Care Routine Daily until discontinued starting 10/21/2021 [facility] Work Phone: Comment on above: Daily until disconti nued starting 10/21/2021 End: 10-21-2021 Wound ostomy eval Wound ostomy eval Wound Ostomy Routine One Time for 1 Occurrences starting 10/21/2021 until 10/21/2021 [facility] Work Phone: Comment on above: One Time for 1 Occur rences starting 10/21/2021 until 10/21/2021 [facility] NEGATED: Highlighted row has been ruled out! Planned Goals not documented MP-Xiombgavhj-Xxa ma Work Phone: Immunizations Immunization Date Immunization Notes Care Provider Christopher chu 03-04-2019 influenza, high dose seasonal, preservative-free Sarika Salas [facility] 12-03-2018 pneumococcal polysac charide vaccine, 23 valent Sarika Salas [facility] Work Phone: 01-25-2018 influenza, high dose seasonal, preservative-free Sarika Salas [facility] 02-14-2017 influenza, injectabl e, quadrivalent, contains preservative Sarika Salas [facility] 09-22-2016 pneumococcal conjuga te vaccine, 13 valent Sarika Salas [facility] Work Phone: 09-22-2016 tetanus toxoid, redu patrice diphtheria toxoid, and acellular pertussis vaccine, adsorbed Sarika Salas [facility] Work Phone: 02-24-2016 influenza, injectabl e, quadrivalent, contains preservative Sarika Salas [facility] 02-08-2015 influenza virus vacc ine, unspecified formulation Sarika Salas [facility] Work Phone: 02-04-2013 pneumococcal Conjuga te, unspecified formulation Sarika ARMENDARIZ Work Phone: Payers Date Payer Category Payer Unknown [id number] 10-18-2023 Self-pay 01-05-2022 Medicaid 01-05-2022 Medicare 01-05-2022 Medicare [id number] 10-05-2021 Medicaid [id number] 06-07-2021 Medicare UHC MEDICARE UHC DUAL COMPLETE HMO SNP [id number] 06/07/2021-Present [phone] [address] [place] [address] Medicare [id number] [id number] 06-07-2021 Medicare UHC MEDICARE UNITEDHE[employer]CARE DUAL COMPLETE [id number] 06/07/2021-Present [phone] [address] [place] [address] [id number]. [id number] 11-05-2019 Medicare UHC AARP MEDICAR E [facility] AARP MEDICARE HMO [id number] 11/05/2019-Present HMO [id number] [id number]. [id number] 07-06-2015 Medicare UHC MEDICARE UHC MEDICARE COMPLETE xxxxxxxxx 2015-Present xxxxxxxxx [id number]. 2.7.3.182234.315 1950 Unknown [id number] 2.16.840.1.502087.3.579. 2.668 1950 Unknown [id number] 2.16.840.1.097748.3.579. 2.668 1950 Unknown [id number] 2.16.840.1.731797.3.579. 2.668 1950 Unknown [id number] 2.16.840.1.107961.3.579. 2.668 1950 Unknown [id number] 2.16.840.1.252413.3.579. 2.668 1950 Unknown [id number] 2.840.1.582470.3.579. 2.668 1950 Unknown [id number] 2.840.1.447581.3.579. 2.8 Private Health Insurance Unknown Unknown [id number] 2.840.1.986305.3.579. 2.462 Unknown [id number] 2.840.1.790534.3.579. 2.462 Unknown [id number] 2.840.1.503861.3.579. 2.462 Unknown [id number] 2.840.1.694573.3.579. 2.462 Unknown [id number] 2.840.1.399260.3.579. 2.462 Unknown [id number] 2.840.1.422102.3.579. 2.462 Unknown [id number] 2.840.1.866050.3.579. 2.462 Unknown [id number] 2.840.1.858319.3.579. 2.462 Unknown [id number] 2.840.1.509265.3.579. 2.462 Unknown [id number] 2.840.1.028041.3.579. 2.462 Unknown [id number] 2.840.1.301757.3.579. 2.462 Unknown [id number] 2.16840.1.185606.3.579. 2.462 Unknown [id number] 2.16.840.1.119486.3.579. 2.462 Unknown [id number] 2.16.840.1.695806.3.579. 2.462 Unknown [id number] 2.16.840.1.828604.3.579. 2.462 Unknown [id number] 2.16.840.1.452710.3.579. 2.462 Unknown [id number] 2.16.840.1.692302.3.579. 2.462 Unknown [id number] 2.16.840.1.821181.3.579. 2.462 Unknown [id number] 2.16.840.1.389989.3.579. 2.462 Unknown [id number] 2.16.840.1.860527.3.579. 2.462 Unknown [id number] 2.16.840.1.104976.3.579. 2.462 Unknown [id number] 2.16.840.1.021758.3.579. 2.462 Unknown [id number] 2.16.840.1.678227.3.579. 2.462 Unknown [id number] 2.16.840.1.286648.3.579. 2.462 Unknown [id number] 2.16.840.1.045726.3.579. 2.462 Unknown [id number] 2.16.840.1.345044.3.579. 2.462 Unknown [id number] 2.16.840.1.840025.3.579. 2.462 Unknown [id number] 2.16.840.1.609924.3.579. 2.462 Unknown [id number] 2.16.840.1.429726.3.579. 2.462 Unknown [id number] 2.16.840.1.233606.3.579. 2.462 Unknown [id number] 2.16.840.1.161164.3.579. 2.462 Unknown [id number] 2.16.840.1.167981.3.579. 2.462 Unknown [id number] 2.16.840.1.846433.3.579. 2.462 Unknown [id number] 2.16.840.1.744266.3.579. 2.462 Unknown [id number] 2.16.840.1.205235.3.579. 2.462 Unknown [id number] 2.16.840.1.581769.3.579. 2.462 Unknown [id number] 2.16.840.1.577812.3.579. 2.462 Unknown [id number] 2..840.1.843380.3.579. 2.462 Unknown [id number] 2..840.1.326141.3.579. 2.462 Unknown [id number] 2.840.1.793484.3.579. 2.462 Unknown [id number] 2..840.1.376357.3.579. 2.462 Unknown [id number] 2..840.1.641960.3.579. 2.462 Unknown [id number] 2.16.840.1.659381.3.579. 2.462 Unknown [id number] 2.16.840.1.785299.3.579. 2.462 Unknown [id number] 2.16.840.1.105994.3.579. 2.462 Unknown [id number] 2.16.840.1.434866.3.579. 2.462 Unknown [id number] 2.16.840.1.700624.3.579. 2.462 Unknown [id number] 2.16.840.1.995675.3.579. 2.462 Unknown [id number] 2.16.840.1.150454.3.579. 2.462 Unknown [id number] 2.16.840.1.595043.3.579. 2.462 Unknown [id number] 2.16.840.1.173649.3.579. 2.462 Unknown [id number] 2.16.840.1.665495.3.579. 2.462 Unknown [id number] 2.16.840.1.609559.3.579. 2.462 Unknown [id number] 2.840.1.254807.3.579. 2.462 Unknown [id number] 2.16.840.1.412400.3.579. 2.462 Unknown [id number] 2.840.1.808660.3.579. 2.462 Unknown [id number] 2.840.1.289594.3.579. 2.462 Unknown [id number] 2.840.1.717513.3.579. 2.462 Unknown [id number] 2.840.1.837511.3.579. 2.462 Unknown [id number] 2.840.1.305100.3.579. 2.462 Unknown [id number] 2.840.1.847356.3.579. 2.462 Unknown [id number] 2.840.1.929018.3.579. 2.462 Unknown [id number] 2.840.1.843807.3.579. 2.462 Unknown [id number] 2.840.1.198764.3.579. 2.462 Unknown [id number] 2.840.1.674846.3.579. 2.462 Unknown [id number] 2.840.1.623298.3.579. 2.462 Unknown [id number] 2.840.1.100348.3.579. 2.462 Unknown [id number] 2.840.1.188528.3.579. 2.462 Unknown [id number] 2.16.840.1.666281.3.579. 2.462 Unknown [id number] 2.16.840.1.779481.3.579. 2.462 Unknown [id number] 2.16.840.1.420246.3.579. 2.462 Unknown 33219610 2.16.840.1.359096.3.579. 2.462 Unknown [id number] 2.16.840.1.575845.3.579. 2.462 Unknown [id number] 2.16.840.1.045825.3.579. 2.462 Unknown 00496594 2.840.1.222182.3.579. 2.462 Unknown [id number] 2.840.1.863316.3.579. 2.462 Unknown [id number] 2.840.1.232557.3.579. 2.462 Unknown [id number] 2.840.1.447452.3.579. 2.462 Unknown 40206659 2..840.1.655226.3.579. 2.462 Unknown [id number] 2.840.1.463397.3.579. 2.462 Unknown 64891981 2.840.1.502625.3.579. 2.462 Unknown [id number] 2.840.1.082628.3.579. 2.462 Unknown [id number] 2.840.1.539142.3.579. 2.462 Unknown [id number] 2.16.840.1.201232.3.579. 2.462 Unknown 34892821 2.16.840.1.292248.3.579. 2.462 Unknown [id number] 2.16.840.1.107105.3.579. 2.462 Unknown [id number] 2.840.1.549664.3.579. 2.462 Unknown 45441914 2.16.840.1.970820.3.579. 2.462 Unknown [id number] 2.16.840.1.403019.3.579. 2.462 Unknown [id number] 2.16.840.1.318589.3.579. 2.462 Unknown [id number] 2.16.840.1.359431.3.579. 2.462 Unknown 29406854 2.16.840.1.348680.3.579. 2.462 Unknown 22889363 2.16.840.1.086095.3.579. 2.462 Unknown [id number] 2.16.840.1.362294.3.579. 2.462 Unknown [id number] 2.16840.1.363974.3.579. 2.462 Unknown 20300825 2.840.1.306213.3.579. 2.462 Unknown [id number] 2.16.840.1.463733.3.579. 2.462 Unknown 40261906 2.16.840.1.490046.3.579. 2.462 Unknown [id number] 2.16.840.1.967736.3.579. 2.462 Unknown [id number] 2.16.840.1.242654.3.579. 2.462 Unknown [id number] 2.16840.1.200199.3.579. 2.462 Unknown [id number] 2.16.840.1.409547.3.579. 2.462 Unknown [id number] 2.16.840.1.798872.3.579. 2.462 Unknown [id number] 2.16.840.1.807564.3.579. 2.462 Unknown [id number] 2.16.840.1.960401.3.579. 2.462 Unknown [id number] 2.16.840.1.812340.3.579. 2.462 Unknown [id number] 2.16.840.1.646381.3.579. 2.462 Social History Date Type Detail Facility Start: 05-23-2018 End: 05-19-2019 Tobacco smoking status NHIS Former smoker [employer] Work Phone: History of tobacco use Cigar Smoker [employer] Work Phone: Start: 05-19-2019 End: 08-13-2023 Cigarettes smoked current (pack per day) - Reported [employer] Work Phone: Start: 05-19-2019 End: 08-13-2023 Alcohol intake Current non-drinker of alcohol (finding) [facility] Work Phone: Start: 12-03-2018 History SDOH Physica l Activity DPW 7 [employer] Phone: Start: 12-03-2018 History SDOH Physica l Activity MPS 9 [employer] Work Phone: Start: 12-03-2018 End: 10-31-2021 History SDOH Stress 1 [employer] Phone: Start: 12-03-2018 History SDOH Financial 5 [employer] Work Phone: Start: 12-03-2018 History SDOH Transpo rt Med 2 [employer] Phone: Start: 1950 Sex Assigned At Not on file [facility] Work Phone: Start: 08-13-2012 End: 11-13-2019 Tobacco smoking status NHIS Never smoker [facility] Start: 05-23-2018 End: 11-13-2019 Tobacco use and exposure Never used [facility] Start: 11-13-2019 History SDOH Alcohol Std Drinks 98 [facility] Start: 10-11-2021 End: 02-15-2022 Exposure to SARS-CoV-2 (event) Not sure [facility] Start: 1950 Sex Assigned At Male [facility] History of tobacco use Current smoker [facility] Work Phone: History of tobacco use Cigarette Smoker [facility] Work Phone: Start: 10-31-2021 End: 08-13-2023 Tobacco use panel [facility] Tobacco smoking stat us PAIS Unknown if ever smoked [facility] Work Phone: Start: 07-11-2024 End: 08-21-2024 Sex Male (finding) [facility] NEGATED: Highlighted row - - [facility] Work Phone: Medical Equipment Procedure Code Equipment Code Equipment Origin al Text Equipment Identifier Dates Kit Bactiseal Woodard maria guadalupe Silicone Barium Catheter Shunt Sterile - [id number] Start: 06-08-2021 Catheter Bactise al 14cm External Drainage Csf Sterile Latex Free - [id number] Start: 08-05-2021 Valve Certas Shannon nt Inline - [id number] Start: 06-08-2021 Valve Certas Shannon nt Inline - [id number] Start: 08-05-2021 Valve Certas Shannon nt Inline - [id number] Start: 08-09-2021 Goals Date Patient Goal Desired Activity /State Comment on above: Self- Management Vanessa n: Obesity/Weight Loss Patient Stated Goal: To lose weight Barriers to success: lack of motivation Plan for overcoming my barriers: Take it one day at a time, decrease sweets. Encouraged and recommended by provider. Confidence: 02/13 Self-Management Plan: Will strive to achieve goal by didn't state Date goal set: 09/22/16 Patient given educational materials below via AVS. Provider Goal: Healthy diet and exercise. Patient received counseling about current lifestyle goal. Advised approximately 150 minutes of cardio, i.e treadmill, exercise in a week. Advised strive for 5 a total 5 servings of fruits and vegetables in a day. Advised a diet lower in carbohydrates and simple sugars. They need to watch consumption of bread, rice, pasta, potatoes, corn, soda, sweetened tea, lemonade, and all other sugar drinks. Patient given after visit summary which includes educational information on Exercise. Discussed use, benefit, and side effects of prescribed medications and barriers to medication compliance addressed, if applicable. All patient questions answered and patient voiced understanding. Patient was given a copy of this, and was advised to call if any questions. Formatting of this n ote might be different from the original. Self- Management Plan: Obesity/Weight Loss Patient Stated Goal: To lose weight Barriers to success: lack of motivation Plan for overcoming my barriers: Take it one day at a time, decrease sweets. Encouraged and recommended by provider. Confidence: 10/10 Self-Management Plan: Will strive to achieve goal by didn't state Date goal set: 09/22/16 Patient given educational materials below via AVS. Provider Goal: Healthy diet and exercise. Patient received counseling about current lifestyle goal. Advised approximately 150 minutes of cardio, i.e treadmill, exercise in a week. Advised strive for 5 a total 5 servings of fruits and vegetables in a day. Advised a diet lower in carbohydrates and simple sugars. They need to watch consumption of bread, rice, pasta, potatoes, corn, soda, sweetened tea, lemonade, and all other sugar drinks. Patient given after visit summary which includes educational information on Exercise. Discussed use, benefit, and side effects of prescribed medications and barriers to medication compliance addressed, if applicable. All patient questions answered and patient voiced understanding. Patient was given a copy of this, and was advised to call if any questions. Comment on above: Patient stated he wo uld like to exercise more, he exercises currently 7 days a week for 90 minutes. The barriers he has is muscle atrophy, he would like to meet his goal soon and is 5/10 confident he can reach it. Added to AVS exercise information Formatting of this n ote might be different from the original. Patient stated he would like to exercise more, he exercises currently 7 days a week for 90 minutes. The barriers he has is muscle atrophy, he would like to meet his goal soon and is 5/10 confident he can reach it. Added to AVS exercise information Functional Status Date Assessment Result Facility NEGATED: Highlighted row Functional performance Functional status health issues are not documented Disease [facility] Work Phone: Mental Status Date Assessment Result Facility NEGATED: Highlighted row Cognitive function [Interpretation] Cognitive status health issues are not documented Disease [facility] Work Phone: Clinical Notes 05-31-2021 to 09-13-2023 Rebecca Buck MD - 09/13/2023 11:30 AM EDTTelephone Encounter - Eloise Stern RN - 08/31/2023 1:55 PM EDTTelephone Encounter - Eloise Stern RN - 08/31/2023 1:55 PM EDTDischarge Instructions Note Date & Type Note Facility 09-13-2023 History of Present illness Narrative Images from the original note were not included. Rebecca Buck MD 09/13/2023 at 12:05 PM Office follow up PATIENT NAME: Andrew Sifuentes DATE OF : 1950 TODAY'S DATE: 09/13/2023 CHIEF COMPLAINT: Chief Complaint Patient presents with left flank pain 8/10 pain when touched Impression/Plan Diagnosis Plan 1. Left flank pain 2. BPH with urinary obstruction 3. History of kidney stones Flank pain-nl ct no stone or hydro, does not appear to be urologic. Further work up per pcp Bph-doing well on flomax, continue flomax Hx of stones-no sign of recurrence on current ct, cont dietary modification push fluid, see me as needed Follow up for see me as needed. Subjective: HPI Mr. Sifuentes is a 73 y.o. male who presents to the office for follow up. 10/31/21 Consult [facility]-for large pvr/retention- resident placed a 16F Coude catheter without issue for approximately 250cc yellow urine. 12/22/21 ED visit-osteomyelitis 71 y.o. past medical history significant for DVTs, malnutrition, pressure ulcers, and hyperlipidemia 02/15/22-OV [facility]-vt, flomax 08/13/23-NEW PT ([facility])-left flank pain. No fever chill, no heme. Void well. Still on flomax. Psa, bmp now, flank ct now, call results 09/13/23-ov- ct no mass hydro or stone. Having flank pain , void well on flomax. He did not do psa or bmp. Needs to follow up with pcp to work up pain, it does not appear to be urologic. See me as needed === 09/06/23 === CT ABDOMEN PELVIS WO IV CONTRAST - Impression - CT examination of the abdomen and pelvis is negative for urinary tract stone or obstructive uropathy. Low-attenuation lesions seen within the liver are generally too small to characterize by CT but likely represent multiple hepatic cysts. There are scattered rectosigmoid diverticuli without evidence of acute diverticulitis. A large fat-containing right inguinal hernia is present. Again noted is an inferior vena cava filter, unchanged. Report Dictated on Electronically Signed By: Javier Zamarripa DO Electronically Signed Date/Time: 09/07/2023 2:06 PM EDT Exam No flank mass or tenderness Bladder non tender, non distended Review of Systems Past Medical History: Past Medical History: Diagnosis Date ED (erectile dysfunction) Hemorrhoids Hydrocephalus, adult (CMS/HCC) (HCC) Kidney stone Neuropathy SUPERVISOR POST WAVE (ventriculoperitoneal) shunt status Past Surgical History: Procedure Laterality Date BRAIN SURGERY CHOLECYSTECTOMY COLONOSCOPY HERNIA REPAIR Social History: Social History Socioeconomic History Marital status: Spouse name: Not on file Number of children: Not on file Years of education: Not on file Highest education level: Not on file Occupational History Not on file Tobacco Use Smoking status: Former Packs/day: 1 Types: Cigarettes Smokeless tobacco: Never Substance and Sexual Activity Alcohol use: No Drug use: No Sexual activity: Not on file Other Topics Concern Not on file Social History Narrative Not on file Social Determinants of Health Financial Resource Strain: Not on file Food Insecurity: Not on file Transportation Needs: Not on file Physical Activity: Not on file Stress: Not on file Social Connections: Not on file Intimate Partner Violence: Not on file Housing Stability: Not on file Family History: Family History Problem Relation Name Age of Onset Heart disease Father Cancer Mother Medications Prior to Admission medications Medication Sig Start Date End Date Taking? Authorizing Provider acetaminophen (Tylenol) 325 MG tablet Take 650 mg by mouth in the morning and 650 mg at noon and 650 mg in the evening. Yes Historical Provider, bumetanide (Bumex) 2 MG tablet 09/04/23 Yes Historical Provider, levETIRAcetam (Keppra) 750 MG tablet 09/04/23 Yes Historical Provider, magnesium hydroxide (Milk of Magnesia) 400 MG/5ML suspension Take 30 mL by mouth daily as needed. Yes Historical Provider, Pediatric Multivit-Minerals (Complete Multi-Vitamin) chewable tablet Chew. Yes Historical Provider, potassium chloride CR (Klor-Con M20) 20 MEQ ER tablet 07/29/23 Yes Historical Provider, spironolactone (Aldactone) 50 MG tablet 08/24/23 Yes Historical Provider, tamsulosin (Flomax) 0.4 MG 24 hr capsule 06/30/23 Yes Historical Provider, warfarin (Coumadin) 2.5 MG tablet 08/03/23 Yes Historical Provider, Vitals: Ht 5' 9 (1.753 m) Wt 175 lb (79.4 kg) BMI 25.84 kg/m Physical Exam: Physical Exam LABS: No results found for: PSAFREE, PSAFREEPCT No results for input(s): PSAFREE, PSAFREEPCT in the last 72 hours. No results found for: TESTOSTERONE Lab Results Component Value Date WBC 14.5 (H) 03/02/2022 HGB 12.1 (L) 03/02/2022 MCV 81.1 03/02/2022 Lab Results Component Value Date GLUCOSE 109 (H) 03/02/2022 CALCIUM 9.1 03/02/2022 NA 140 03/02/2022 K 3.7 03/02/2022 CO2 27 03/02/2022 CL 106 03/02/2022 BUN 22 (H) 03/02/2022 CREATININE 0.63 03/02/2022 No components found for: LABURIN Lab Results Component Value Date COLORU Yellow 11/01/2021 BILIRUBINUR Negative 11/01/2021 PROTUR 10 (A) 11/01/2021 UROBILINOGEN Normal 11/01/2021 LEUKOCYTESUR Negative 11/01/2021 Radiology Review: Rebecca Buck MD 09/13/23 12:05 PM documented in this encounter [facility] 08-31-2023 Note S: Shanthi from [facility] spoke with [facility] nurse regarding voiding trial procedure. B: Onset of symptoms/concern today. A: Shanthi is calling to make sure that the patient doesn't need to stand for the procedure as the patient can't. Patient using a boaz lift and would need to come by cot if so. Shanthi advised that the patient would need to come back cot if unable to stand to move from chair to exam table for procedure. R: Shanthi will attempt to arrange for transportation for September 03 but might need to reschedule appointment if unable to obtain transportation. Reason for Disposition [1] Caller requesting NON-URGENT health information AND [2] PCP's office is the best resource Protocols used: Information Only Call - No [id number]-2023 Telephone encounter Note S: Shanthi from [facility] spoke with [facility] nurse regarding voiding trial procedure. B: Onset of symptoms/concern today. A: [facility] is calling to make sure that the patient doesn't need to stand for the procedure as the patient can't. Patient using a boaz lift and would need to come by cot if so. Shanthi advised that the patient would need to come back cot if unable to stand to move from chair to exam table for procedure. R: [facility] will attempt to arrange for transportation for September 03 but might need to reschedule appointment if unable to obtain transportation. Reason for Disposition [1] Caller requesting NON-URGENT health information AND [2] PCP's office is the best resource Protocols used: Information Only Call - No [id number]-YRZLB-IF [facility] 08-31-2023 Miscellaneous Notes S: Shanthi from [facility] spoke with [facility] nurse regarding voiding trial procedure. B: Onset of symptoms/concern today. A: [facility] is calling to make sure that the patient doesn't need to stand for the procedure as the patient can't. Patient using a boaz lift and would need to come by cot if so. Shanthi advised that the patient would need to come back cot if unable to stand to move from chair to exam table for procedure. R: Shanthi will attempt to arrange for transportation for September 03 but might need to reschedule appointment if unable to obtain transportation. Reason for Disposition [1] Caller requesting NON-URGENT health information AND [2] PCP's office is the best resource Protocols used: Information Only Call - No [id number]-KU documented in this encounter [facility] 08-29-2023 Telephone encounter Note Lm on daughters vm to advise them to call the number for the credit risk manager to get clarification, and to call back with further questions [facility] 08-29-2023 Miscellaneous Notes Lm on daughters vm to advise them to call the number for the credit risk manager to get clarification, and to call back with further questions Yes, they will need to call the number given to them. Please advise Name of caller: Shanthi Contact phone number: [phone] Relationship to Patient: patient Provider: MD Quinn Practice: [facility] [place] [place] [facility] Chief Complaint/Reason for Call: Shanthi called in to see if Pt would need to come by cot for his CT appt due to Pt being Boaz. TEA did reach out to office and was advised to reach out to Central Scheduling. TEA did reach out to and was advised to let Shanthi know that she would need to reach out to call Maury Cedeño [employer] at [facility] [phone] to get clarifications. TEA did reach back out to [facility] and advised and provider Maury's #. Please advise Best time of day caller can be reached: Any Patient advised that office/PCP has 24-48 business hours to return their call: N/A documented in this encounter [facility] 08-27-2023 Telephone encounter Note Yes, they will need to call the number given to them. [facility] 08-27-2023 Telephone encounter Note Please advise [facility] 08-21-2023 Telephone encounter Note Name of caller: Shanthi Contact phone number: [phone] Relationship to Patient: patient Provider: MD Quinn Practice: [facility] [place] [place] [facility] Chief Complaint/Reason for Call: Shanthi called in to see if Pt would need to come by cot for his CT appt due to Pt being Boaz. CAC did reach out to office and was advised to reach out to Central Scheduling. CAC did reach out to and was advised to let Shanthi know that she would need to reach out to call Maury Cedeño [employer] at [facility] [phone] to get clarifications. CAC did reach back out to [facility] and advised and provider Maury's #. Please advise Best time of day caller can be reached: Any Patient advised that office/PCP has 24-48 business hours to return their call: N/A [facility] 08-13-2023 History of Present illness Narrative Images from the original note were not included. Rebecca Buck MD 08/13/2023 at 10:45 AM UROLOGY INITIAL OFFICE VISIT PATIENT NAME: Andrew Sifuentes DATE OF : 1950 TODAY'S DATE: 08/13/2023 Chief Complaint: Chief Complaint Patient presents with New Patient Bilateral flank pain, hx of kidney stones Nephrolithiasis HPI Mr. Sifuentes is a 73 y.o. male who presents with flank pain 10/31/21 Consult [facility]-for large pvr/retention- resident placed a 16F Coude catheter without issue for approximately 250cc yellow urine. 12/22/21 ED visit-osteomyelitis 71 y.o. past medical history significant for DVTs, malnutrition, pressure ulcers, and hyperlipidemia 02/15/22-OV [facility]-vt, flomax 08/13/23-NEW PT ([facility])-left flank pain. No fever chill, no heme. Void well. Still on flomax. Psa, bmp now, flank ct now, call results Review of Systems Constitutional: Negative for unexpected weight change. HENT: Negative for ear pain and trouble swallowing. Eyes: Negative for pain and discharge. Respiratory: Negative for shortness of breath and wheezing. Cardiovascular: Negative for chest pain and palpitations. Gastrointestinal: Negative for anal bleeding and rectal pain. Endocrine: Negative for cold intolerance and heat intolerance. Genitourinary: See HPI Skin: Negative for rash. Neurological: Negative for tremors and weakness. Psychiatric/Behavioral: Negative for suicidal ideas. The patient is not hyperactive. Past Medical History: Past Medical History: Diagnosis Date ED (erectile dysfunction) Hemorrhoids Hydrocephalus, adult (CMS/HCC) (HCC) Kidney stone Neuropathy SUPERVISOR POST WAVE (ventriculoperitoneal) shunt status Past Surgical History: Past Surgical History: Procedure Laterality Date BRAIN SURGERY CHOLECYSTECTOMY COLONOSCOPY HERNIA REPAIR Current Medications: Prior to Admission medications Medication Sig Start Date End Date Taking? Authorizing Provider acetaminophen (Tylenol) 325 MG tablet Take 650 mg by mouth in the morning and 650 mg at noon and 650 mg in the evening. Yes Historical Provider, magnesium hydroxide (Milk of Magnesia) 400 MG/5ML suspension Take 30 mL by mouth daily as needed. Yes Historical Provider, potassium chloride CR (Klor-Con M20) 20 MEQ ER tablet 07/29/23 Yes Historical Provider, tamsulosin (Flomax) 0.4 MG 24 hr capsule 06/30/23 Yes Historical Provider, warfarin (Coumadin) 2.5 MG tablet 08/03/23 Yes Historical Provider, Allergies: Alcohol, Cortisone, Morphine, and Latex Social History: Social History Socioeconomic History Marital status: Spouse name: Not on file Number of children: Not on file Years of education: Not on file Highest education level: Not on file Occupational History Not on file Tobacco Use Smoking status: Former Packs/day: 1 Types: Cigarettes Smokeless tobacco: Never Substance and Sexual Activity Alcohol use: No Drug use: No Sexual activity: Not on file Other Topics Concern Not on file Social History Narrative Not on file Social Determinants of Health Financial Resource Strain: Not on file Food Insecurity: Not on file Transportation Needs: Not on file Physical Activity: Not on file Stress: Not on file Social Connections: Not on file Intimate Partner Violence: Not on file Housing Stability: Not on file Family History: Family History Problem Relation Name Age of Onset Heart disease Father Cancer Mother VITALS: Ht 5' 9 (1.753 m) Wt 175 lb (79.4 kg) BMI 25.84 kg/m Physical Exam Constitutional: Patient is oriented to person, place, and time. Patient appears well-developed and well-nourished. No distress. HENT: Head: Normocephalic and atraumatic. Eyes: Pupils are equal, round, and reactive to light. EOM are normal. No scleral icterus. Neck: Normal range of motion. Neck supple. No JVD present. Cardiovascular: Normal rate and regular rhythm. Pulmonary/Chest: Effort normal. No respiratory distress. Abdominal: Soft. Exhibits no distension and no mass. There is no rebound. Genitourinary: No flank mass or tenderness Bladder non tender, non distended . Neurological: Is alert and oriented to person, place, and time. Skin: Skin is warm and dry. Psychiatric: Has a normal mood and affect. Judgment normal. DATA: LABS: No results found for: PSAFREE, PSAFREEPCT No results for input(s): PSAFREE, PSAFREEPCT in the last 72 hours. No results found for: TESTOSTERONE Lab Results Component Value Date WBC 14.5 (H) 03/02/2022 HGB 12.1 (L) 03/02/2022 MCV 81.1 03/02/2022 Lab Results Component Value Date GLUCOSE 109 (H) 03/02/2022 CALCIUM 9.1 03/02/2022 NA 140 03/02/2022 K 3.7 03/02/2022 CO2 27 03/02/2022 CL 106 03/02/2022 BUN 22 (H) 03/02/2022 CREATININE 0.63 03/02/2022 No components found for: [facility]URIN [facility] Radiology Review: Impression: Diagnosis Plan 1. Left flank pain CT abdomen pelvis wo IV contrast 2. Calculus of ureter Basic metabolic panel CT abdomen pelvis wo IV contrast Basic metabolic panel 3. Disease of prostate PSA, Monitoring ([facility]) PSA, Monitoring ([facility]) 4. BPH with urinary obstruction Andrew Sifuentes is a 73 y.o. male with Left flank pain hx of stones Bph on flomax Plan: Flank ct now Push po fluids Call results of ct Psa now Continue flomax Follow up for psa, bmp now, flank ct now. Rebecca Buck MD 08/13/23 10:45 AM documented in this encounter [facility] 06-25-2023 [facility] 07/10/23 [place] has to be made further out, pt being transported by cot. Changed appt to 08/13/[address] [facility] only avail time for transport, first avail with DR Buck at 10:00 AM. [facility] 06-25-2023 Miscellaneous Notes [facility] stating appt scheduled 07/10/23 [place] has to be made further out, pt being transported by cot. Changed appt to 08/13/[address] [facility] only avail time for transport, first avail with DR Buck at 10:00 AM. documented in this encounter [facility] 12-22-2021 Hospital Discharge instructions SANIA Lou - 12/22/2021 2:32 AM EDT Please take medication as prescribed Please follow up with your Physicians as instructed in this discharge paperwork Thank you for choosing [facility] I appreciate your patience Please return to the emergency department if your symptoms worsen, or new symptoms develop as discussed documented in this encounter [facility] Work Phone: 10-29-2021 Note Hospitalist Discharg e Summary Andrew Sifuentes : 1950 Admit date: 10/21/2021 Discharge date: 10/29/2021 Admitting Physician: May Cash MD Primary Care Physician: MONIKA STALEY MD Visit Status: Admission Code Status: Prior Discharge Diagnoses: ? #?Acute DVT of the bilateral lower extremities failed Eliquis treatment ? #?History of ventriculoperitoneal shunt placement,?with infection,?history of seizures,?neurology following, MRI brain showed no acute intracranial abnormality and previous indwelling tubing history of SUPERVISOR POST WAVE shunt ? #?Bilateral lower extremity wounds-wound care following and podiatry following, dressing changes,?offload pressure ? #?Alzheimer's dementia ? # Hepatic lesions on MRI abdomen possibly cysts, GI evaluated and signed off ? # Moderate malnutrition # Class I obesity due to excess calories # Stage 2 pressure ulcer of the sacrum POA ? Procedures: None Hospital Course: Patient is a 71-year-old gentleman who has a known history of ventriculoperitoneal shunt placement in the past admitted for acute DVT of bilateral lower extremities, he was on Eliquis. Evaluated by vascular surgeon and determined no further intervention necessary for now, patient was started on Lovenox Coumadin bridge and Eliquis was stopped, daily INR was monitored which came up to between 2 and 3 so Lovenox was stopped. Patient will be on Coumadin 6 to 7 mg alternating. He had hepatic lesions on the MRI of the abdomen and evaluated by GI, no further intervention for now. Due to previous history of seizures patient was started on Keppra by the neurologist. Patient will be transferred to the senior care and his Coumadin was continued, dosing instructions were given. Wound care was given for his lower extremity wounds. Consults: neurology, vascular surgery, gastroenterology Discharge Instructions: Diet: No diet orders on file Activity: as tolerated Disposition: Patient discharged in stable condition to senior care . Greater than 30 minutes spent discharging the patient and coming up with patient discharge plan. Vitals: BP 123/79 Pulse 80 Temp 97.8 ?F (36.6 ?C) (Temporal) Resp 18 Ht 5' 7.01 (1.702 m) Wt 240 lb (108.9 kg) SpO2 96% BMI 37.58 kg/m? Pulse Ox: No data recorded Supplemental O2: General appearance: Craniotomy scar , slow to respond but answers questions. No apparent distress, appears stated age and cooperative with exam Respiratory: Normal respiratory effort. Clear to auscultation, bilaterally without Rales/Wheezes/Rhonchi. Cardiovascular: Regular rate and rhythm with normal S1/S2 without murmurs, rubs or gallops. Abdomen: Soft, non-tender, non-distended with normal bowel sounds. No rebound or guarding. Musculoskeletal: No clubbing, cyanosis or edema bilaterally. Full range of motion without deformity. Skin: Bilateral lower extremity wounds bandaged and wrapped Discharge Medications: Medication List START taking these medications levETIRAcetam 750 MG tablet Commonly known as: Keppra Take 1 tablet by mouth 2 times daily warfarin 6 MG tablet Commonly known as: Coumadin Take 1 tablet by mouth daily CONTINUE taking these medications baclofen 10 MG tablet Commonly known as: LIORESAL TAKE 1 TABLET BY MOUTH 3 TIMES DAILY NEEDED FOR MUSCLE SPASMS bumetanide 2 MG tablet Commonly known as: BUMEX TAKE 1 TABLET BY MOUTH DAILY Ginseng 100 MG Caps Take 100 mg by mouth daily Handicap Placard Misc by Does not apply route Duration: 5 years, 2023 Medical Compression Stockings Misc 1 each by Does not apply route daily as needed (swelling) potassium chloride 20 MEQ extended release tablet Commonly known as: KLOR-CON M TAKE 1 TABLET BY MOUTH DAILY STOP taking these medications apixaban 5 MG Tabs tablet Commonly known as: ELIQUIS furosemide 40 MG tablet Commonly known as: LASIX Where to Get Your Medications These medications were sent to [address] - [phone] - F [phone] [place] [id number] ? levETIRAcetam 750 MG tablet ? warfarin 6 MG tablet Recommended Follow-up: No follow-up provider specified. Complexity of Follow up: [] Moderate Complexity: follow up within 7-14 calendar days (51519) [x] Severe Complexity: follow up within 7 calendar days (49299) Follow up Testing, Pending results or Referrals at Transitional Care Visit: [x] yes [] No GENERAL ZONES GREEN ZONE: All Clear- Your Symptoms Are Under Control No recurrence of symptoms that led to hospitalization Able to do usual activities No fever No chest pain No shortness of breath This Means You Should: Continue taking your medications as prescribed Continue activity as tolerated Keep all doctor appointments YELLOW ZONE: Caution Recurrence of symptoms that led to hospitalization Fever of 100 degrees or higher Increased fatigue or (more content not included)... [facility] 10-29-2021 Hospital Discharge instructions Fabi Subramanian RN - 10/29/2021 12:03 PM EDT Continuity of Care Form Patient Name: Andrew Sifuentes : 1950 Admit date: 10/21/2021 Discharge date: 10/29/2021 Code Status Order: Full Code Advance Directives: Admitting Physician: May Cash MD PCP: MONIKA STALEY MD Discharging Nurse: Fabi Discharging Hospital Unit/Room#: 146/1461 Discharging Unit Emergency Contact: Extended Emergency Contact Information Primary Emergency Contact: Triny Damon Address: [address] [place] [address] [address] [place], [place] [id number] [place] [address] Relation: Brother/Sister Secondary Emergency Contact: Melissa Sifuentes Mobile Relation: Child Preferred language: Kittitian Past Surgical History: Past Surgical History: Procedure Laterality Date BRAIN SURGERY CHOLECYSTECTOMY COLONOSCOPY HERNIA REPAIR Immunization History: Immunization History Administered Date(s) Administered Influenza Virus Vaccine 02/08/2015 Influenza, High Dose (Fluzone 65 yrs and older) 01/25/2018, 03/04/2019 Influenza, Quadv, IM, (6 mo and older Fluzone, Flulaval, Fluarix and 3 yrs and older Afluria) 02/24/2016, 02/14/2017 Pneumococcal Conjugate 13-valent ([id number]) 09/22/2016 Pneumococcal Conjugate Vaccine 02/04/2013 Pneumococcal Polysaccharide ([id number]) 12/03/2018 Tdap (Boostrix, Adacel) 09/22/2016 Active Problems: Patient Active Problem List Diagnosis Code Flank pain, acute R10.9 Night muscle spasms M62.838 Chronic fatigue R53.82 Hydrocephalus (HCC) G91.9 Neuropathy G62.9 Erectile dysfunction N52.9 Fluid retention in tissues R60.9 Hyperlipidemia E78.5 Morbidly obese (HCC) E66.01 Leg wound, left S81.802A DVT, lower extremity, recurrent, unspecified laterality (HCC) I82.409 Moderate malnutrition ([facility]) E44.0 History of seizures Z87.898 Isolation/Infection: Isolation No Isolation Patient Infection Status None to display Nurse Assessment: Last Vital Signs: BP 123/79 Pulse 80 Temp 97.8 F (36.6 C) (Temporal) Resp 18 Ht 5' 7.01 (1.702 m) Wt 240 lb (108.9 kg) SpO2 96% BMI 37.58 kg/m Last documented pain score (0-10 scale): Pain Level: 0 Last Weight: Wt Readings from Last 1 Encounters: 10/21/21 240 lb (108.9 kg) Mental Status: Alert. Answers simple questions IV Access: - None Nursing Mobility/ADLs: Walking Dependent Transfer Dependent Bathing Dependent Dressing Dependent Toileting Dependent Feeding Dependent Assistant Facility Manager Dependent Med Delivery whole in [facility] Wound Care Documentation and Therapy: Wound 10/21/21 Heel Left (Active) Wound Etiology Pressure Unstageable 10/28/21 0800 Dressing Status Clean;Dry;Intact 10/28/211947 Dressing/Treatment ABD;Roll gauze 10/28/211947 Offloading for Diabetic Foot Ulcers Offloading boot 10/28/211947 Dressing Change Due 10/29/21 10/28/211947 Wound Assessment Eschar moist 10/28/21 0800 Drainage Amount None 10/28/21 194 Drainage Description Serous 10/28/21 0800 Odor None 10/28/211947 Leena-wound Assessment Other (Comment) 10/28/211947 Margins Other (Comment) 10/28/211947 Number of days: 7 Wound 10/21/21 Foot Right (Active) Dressing Status Clean;Dry;Intact 10/28/211947 Dressing/Treatment ABD;Roll gauze 10/28/211947 Dressing Change Due 10/29/21 10/28/211947 Wound Assessment Eschar dry 10/28/21 0800 Drainage Amount None 10/28/211947 Drainage Description Serous 10/28/21 0800 Odor None 10/28/211947 Leena-wound Assessment Other (Comment) 10/28/211947 Margins Other (Comment) 10/28/211947 Number of days: 7 Elimination: Continence: Bowel: No Bladder: No Urinary Catheter: None Colostomy/Ileostomy/Ileal Conduit: No Date of Last BM: 10/29/2021 Intake/Output Summary (Last 24 hours) at 10/29/2021 1202 Last data filed at 10/29/2021 1126 Gross per 24 hour Intake 150 ml Output -- Net 150 ml I/O last 3 completed shifts: In: 200 [P.O.:200] Out: - Safety Concerns: History of Seizures Impairments/Disabilities: Right side weakness Nutrition Therapy: Current Nutrition Therapy: - Oral Diet: Easy to chew Diet Routes of Feeding: Oral Liquids: No Restrictions Daily Fluid Restriction: no Last Modified Barium Swallow with Video (Video Swallowing Test): not done Treatments at the Time of Hospital Discharge: Respiratory Treatments: Duoneb Q4H prn SOB Oxygen Therapy: {Therapy; copd oxygen:04957} Ventilator: { CC Vent List:[id number]} Rehab Therapies: {THERAPEUTIC INTERVENTION:[id number]} Weight Bearing Status/Restrictions: Weight Bearing - Patient was bedbound in hospital Other Medical Equipment (for information only, NOT a DME order): wheelchair, hospital bed, and Boaz Other Treatments: Patient's personal belongings (please select all that are sent with patient): {[facility] DME Belongings:[id number]} RN SIGNATURE: CASE MANAGEMENT/SOCIAL WORK SECTION Inpatient Status Date: Readmission Risk Assessment Score: Readmission Risk Risk of Unplanned Readmission: 11 Discharging to Facility/ Agency Name: Address: Phone: Fax: Dialysis Facility (if applicable) Name: Address: Dialysis Schedule: Phone: Fax: Continuous Miner Operator/City Distribution Clerk signature: {Esignature:[id number]} PHYSICIAN SECTION Prognosis: Fair Condition at Discharge: Stable Rehab Potential (if transferring to Rehab): Fair Recommended Labs or Other Treatments After Discharge: Coumadin based on INR target range 2-3, Coumadin 6 mg on 10/30 and 10/31, recheck INR 11/01 and notify physician, ideally should be on 6 mg alt with 7 mg daily, PT/OT, follow-up with neurologist in 1 month, continue Sara Physician Certification: I certify the above information and transfer of Andrew Sifuentes is necessary for the continuing treatment of the diagnosis listed and that he requires [facility] Facility for greater than 30 days. Update Admission H&P: No change in H&P PHYSICIAN SIGNATURE: documented in this encounter [facility] Work Phone: 10-29-2021 History of Present illness Narrative [facility] Anticoagulation Management Service ([facility]) Inpatient Warfarin Consult HPI: Andrew Sifuentes is a 71 y.o. 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 Pt was referred by Ellen Scherer APRN-VICTORIANO. Pt is on warfarin for DVT and has a goal INR 2.0 - 3.0 . Duration of therapy= indefinite. Reason for warfarin instead of DOAC: DOAC failure PCP: MONIKA STALEY MD S/sx of bleeding= none noted Interacting medications= none Labs: Recent Labs 10/28/21 0418 HGB 11.0* HCT 33.4* PLT 344 Recent Labs 10/29/21 0515 INR 2.7* Date INR Dose 10/29 2.7 7.5mg 10/28 3.1 HOLD 10/27 2.1 7.5mg 10/26 1.9 7.5mg 10/25 1.5 7.5mg 10/24 1.2 7.5mg 10/23 1.1 7.5 mg 10/22 1.1 5 mg 10/21 1.1 5 mg Assessment/Plan: 1. INR is therapeutic on 47.5mg of warfarin over last 8 days. Will give 7.5mg warfarin today. 2. Will monitor for s/s of bleeding and drug interactions and adjust dose accordingly. 3. [facility] will manage while inpatient and sign off at discharge. Patient resides in a SNF. If discharged, recommend continuing close to 6-7mg warfarin daily. 4. Will provide warfarin education including [facility] warfarin booklet, if appropriate. Vimal Oropeza RPH, PharmD [facility] Consult Service is available daily [phone]. Please search for covering pharmacist name via [employer] or Groups --> Pharmacy --> Anti-Coagulation Consult Pharmacist (on 3rd page). If no response via [employer], please page [phone]. Patient seen and chart reviewed. Afebrile. Adequate oxygenation on room air. Baseline mentation. Exam stable X 5 systems. Hgb 11.0 WBC 10.0 K Platelets 344 K Creatinine 0.71 GFR > 90 cc/min. NSE 20.8 with hemolysis. PT 30.8 INR 3.1 Conversion to Warfarin has been completed. APS w/u pending. Discussed with patient's staff development coordinator. Will continue to monitor. Total visit time > 35 minutes. Neurology Attending Progress Note SUBJECTIVE: No issues overnight. Care discussed with nursing staff/patient's medical team MRI brain reported nothing acute. 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 Neurology consulted on 10/26/2021 for history of hydrocephalus and seizures at daughter's request. Per primary medical team patient did not have any witnessed seizure this admission. CT head done during this admission reported no hydrocephalus, ventricles within normal limits and both old and new SUPERVISOR POST WAVE shunt tubing noted. At present patient is awake, follows commands, was able to tell his name, and that he was in hospital but not oriented to time. Per documentation patient had NCSE in May 2021, was on Vimpat, but it was discontinued as there was no evidence of recurrent seizures in july 2021 by Neurology at [facility], per daughter patient was on Dilantin for 31 yrs. Per daughter patient had seizures in the past and also felt he had staring episodes 10/26/2021 morning. Per daughter patient has been essentially bed bound in [place] since May 2021 but prior to that was independent Impressions: H/O hydrocephalus H/O seizure, H/O stroke Acute DVT H/O PE Plan: -MRI brain w/o contrast nothing acute -CT head done during this admission reported no hydrocephalus, ventricles within normal limits and both old and new SUPERVISOR POST WAVE shunt tubing noted -EEG mild to moderate slow, no seizures reported -Labs reviewed -Hydrocephalus management per Neurosurgery. At present patient does not have hydrocephalus on CT head done this admission. No Neurosurgery services available as inpatient in [facility]. Patient can follow up with Neurosurgery as outpatient and if ends up needing inpatient neurosurgery requirement then may need to be transferred to [facility]. -No clear clinical signs of ventriculitis. Defer evaluation to primary medical team/ID as deemed necessary. -Discussed with daughter in detail on . She was concerned that patient has had h/o seizures, and he has been taken off seizure medication, per note documentation patient had NCSE in May 2021 when he was admitted to [facility]. Per daughter she would want patient to be on seizure medication given his h/o recurrent seizures. -Started on Keppra 750 mg BID. S/E discussed in detail. Patient tolerating medication well -On Coumadin. Goal INR 2-3 -Consider Lipitor 20 mg PO qhs given h/o stroke -GI/DVT prophylaxis -PT/OT/ST -Fall precautions -Further medical management per medical team -Follow up with Neurology in 4 weeks as outpatient -Please call with questions if any. -Thank you for allowing us to participate in patients care and management. -All questions were answered -Will sign off at present. Please call with questions if any in the interim. -I will be off service from tomorrow and there is no in house Neurology coverage at [facility] over the weekend, primary hospitalist team to contact weatherization and housing inspector Neurology at [facility] for any weekend neurological issues related to the patient and if need to discuss any neurological test results/findings. Other deal in house Neurology coverage will be available from Sunday at [facility] and please call weatherization and housing inspector Neurology back on Sunday if need further assistance. This note has been generated using [employer] dictation software. It may contain incorrect words, punctuation's and spellings that were not noted in the review of the note prior to signing. This note has been generated using [employer] dictation software. It may contain incorrect words, punctuation's and spellings that were not noted in the review of the note prior to signing. PMH/PSH/ROS/Medications/FH/SH-as documented in the initial consult note. Physical Examination: Patient Vitals for the past 8 hrs: BP Temp Temp src Pulse Resp SpO2 10/28/21 0737 138/80 97.3 F (36.3 C) Temporal 87 16 94 % I/O last 3 completed shifts: In: 260 [P.O.:260] Out: - PHYSICAL EXAM: General Examination: conscious, alert, oriented, AoA x2 HEENT: normocephalic, pupils BERL Heart: normal S1 S2 Lungs: Bilateral air entry present Abdomen: bowel sounds present Psychiatry: Denies Anxiety, depression or suicidal ideations at present Neuro: Conscious, alert, oriented AoA x2, CN II-XII no Nystagmus, EOMI, pupils BERL, No facial sensory loss, no facial asymmetry, tongue protrudes in midline, Power 5/5 left UE/LE, possible mild chronic right UE/LE weakness, distal small muscle right hand weakness, tone mildly increased right UE, No tremors, No pronator drift, Reflexes + B/S/T/K/A, Plantars B/L flexor, No cerebellar signs, Romberg s deferred, No sensory loss to light touch/temperature, gait deferred, No frontal release signs. No involuntary movements, No NR, No Kernig s sign, No Brudzinski s sign Results Labs: Last 24hrs Recent Results (from the past 24 hour(s)) Protime-INR Collection Time: 10/28/21 4:18 AM Result Value Ref Range Protime 30.8 (H) 9.0 - 12.0 s INR 3.1 (H) 0.9 - 1.1 NA CBC Collection Time: 10/28/21 4:18 AM Result Value Ref Range WBC 10.0 3.6 - 10.7 10*3/uL RBC 3.94 (L) 4.40 - 5.90 10*6/uL Hemoglobin 11.0 (L) 13.0 - 18.0 g/dL Hematocrit 33.4 (L) 40.0 - 52.0 % MCV 84.8 80.0 - 98.0 fL MCH 27.8 26.0 - 34.0 pg MCHC 32.8 32.0 - 36.0 % RDW 17.1 (H) 11.5 - 14.5 % Platelets 344 140 - 440 10*3/uL MPV 8.3 7.4 - 12.4 fL Comprehensive Metabolic Panel Collection Time: 10/28/21 4:18 AM Result Value Ref Range Sodium 138 135 - 145 mmol/L Potassium 3.5 3.5 - 5.1 mmol/L Chloride 104 98 - 107 mmol/L CO2 29 22 - 30 mmol/L Anion Gap 5 3 - 13 mmol/L Glucose 117 (H) 70 - 100 mg/dL BUN 16 7 - 17 mg/dL CREATININE 0.71 0.52 - 1.25 mg/dL eGFR >90.0 >60 mL/min EGFR IF NonAfrican Tunisian >90.0 >60 mL/min Calcium 9.1 8.4 - 10.4 mg/dL Albumin,Serum 3.7 3.5 - 5.0 g/dL Total Protein 7.1 6.3 - 8.2 g/dL Total Bilirubin 0.4 0.2 - 1.3 mg/dL Alkaline Phosphatase 103 38 - 126 U/L ALT 26 0 - 49 U/L AST 24 15 - 46 U/L Since admission: No results for input(s): CKTOTAL, TROPONINI in the last 72 hours. Recent Labs 10/28/21417 ALKPHOS 103 ALT 26 AST 24 BILITOT 0.4 LABALBU 3.7 @[facility]) ABGs: )No results for input(s): PH, PO2, PCO2, HCO3, BE, O2SAT in the last 72 hours. Cultures: Blood culture #1: No results for input(s): BC in the last 72 hours. Blood culture #2: No results for input(s): BLOODCULT2 in the last 72 hours. Antiepileptic levels: No results for input(s): PHENYTOIN, CARBTOT, PHENOBARB, VALPROATE in the last 72 hours. Invalid input(s): LAMOTRIG, KEPPRA Coagulation: Recent Labs 10/26/21 0319 10/27/21 0537 10/28/21417 INR 1.9* 2.1* 3.1* CSF: No results for input(s): CHARCSF, CULTURE in the last 72 hours. Invalid input(s): CELL COUNT, GRAM STAIN, PROTEIN Stroke Specific: Lipids: No results for input(s): CHOL, LDLCHOLESTEROL, TRIG, HDL, AMYLASE, LIPASE in the last 72 hours. HgA1c: No results for input(s): LABA1C in the last 72 hours. Radiology: XR CALCANEUS LEFT (MIN 2 VIEWS) Result Date: 10/21/2021 Patient Name: ANDREW SIFUENTES Diagnostic Radiology ACCESSION EXAM DATE/TIME PROCEDURE ORDERING PROVIDER [id number] 10/21/2021 15:30 EDT CR Calcaneus 2+ Views [id number] -SHRUTHI MALIK Left CPT code 07674 Reason For Exam (CR Calcaneus 2+ Views Left) unstageable ulceration possible osteomyelitis , 3 views please. Report Examination: CR Calcaneus 2+ Views Left Clinical: unstageable ulceration possible osteomyelitis , 3 views please. Comparison: None Findings: AP and lateral views of the left calcaneus. Osteopenia. 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 Degenerative changes along the os trigonum posteriorly. Atherosclerotic calcification posterior to the ankle. There is some calcification seen at the plantar aponeurotic origin. There is superficial soft tissue erosion seen along the medial aspect of the calcaneus. No deep subcutaneous air or foreign body is seen. There is very subtle surface irregularity seen along the posterior medial calcaneus which could be related to enthesophyte. A subtle surface erosion is not entirely excluded. No evidence of osteomyelitis is seen on the lateral projection. Midfoot demonstrates minimal osteoarthropathy. Impression: 1. Soft tissue fairly superficial ulceration along the posterior lateral aspect of the left calcaneus. 2. Nonspecific subtle surface irregularity along the posterior lateral calcaneus which could be related to enthesophytes. No definite acute osteomyelitis. If concern for early, superficial osteomyelitis, MRI or bone scan could be considered for more sensitive evaluation. 3. 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 Degenerative changes also seen along the os trigonum. Diagnostic Radiology Report Report Dictated on --- Final --- Dictating Physician: MD WONG ANTHONY J Signed Date and Time: 10/21/2021 4:31 pm Signed by: MD WONG ANTHONY J Transcribed Date and Time: 10/21/2021 4:33 CT HEAD WO CONTRAST Result Date: 10/26/2021 Patient Name: ANDREW SIFUENTES Computed Tomography ACCESSION EXAM DATE/TIME PROCEDURE ORDERING PROVIDER [id number] 10/26/2021 11:[address] Head or Brain w/o LOIS, HOUSEKEEPING MANAGER, SARINA Contrast CPT code 79180 Reason For Exam (CT Head or Brain w/o Contrast) hydrocephalus. thank you Report CLINICAL INFORMATION: Hydrocephalus. Shunt. 3 mm axial cuts through the head are obtained without IV contrast. The examination is compared to a previous study dated 06/29/2014. FINDINGS: Old SUPERVISOR POST WAVE shunt tubing is noted bilaterally. The new or shunt on the left (via the left parietal lobe) terminates just across the midline in the region of the 3rd ventricle. The ventricles are within normal limits in respect to their size and configuration. There is no hydrocephalus. There is no evidence of mass or mass-effect. There are no abnormal intra- or extra-axial fluid collections. No hemorrhage is identified. There is mild cortical atrophy. Patchy low-attenuation is noted within the periventricular, deep, and subcortical white matter. There is no CT evidence of an acute infarct. Bone windows demonstrate no evidence of fracture and the visualized paranasal sinuses and mastoid air cells are clear. IMPRESSION: 1. Old and new SUPERVISOR POST WAVE shunt tubing. 2. No hydrocephalus. 3. Atrophy and evidence of small-vessel ischemic disease. 4. No CT evidence of an acute intracranial process. Report Dictated on --- Final --- Dictating Physician: MD SOLANO JEFFREY Signed Date and Time: 10/26/2021 11:42 am Signed by: MD SOLANO JEFFREY Transcribed Date and Time: 10/26/2021 11:43 MRI ABDOMEN WO CONTRAST Result Date: 10/23/2021 Patient Name: ANDREW SIFUENTES Magnetic Resonance Imaging ACCESSION EXAM DATE/TIME PROCEDURE ORDERING PROVIDER [id number] 10/23/2021 11:08 EDT MRI Abdomen w/o Contrast DONOVAN SRIVASTAVAW CPT code 61461 Reason For Exam (MRI Abdomen w/o Contrast) Status of Liver Lesions. Report MRI ABDOMEN WITHOUT CONTRAST: CLINICAL INDICATION: Liver lesions on CT. TECHNIQUE: Coronal and transaxial fast spin density along with transaxial in phase and opposed phase gradient echo, fast T2 fat suppression sequences and diffusion-weighted sequences were formed through the abdomen with attention to the liver. COMPARISON: CT abdomen pelvis 10/22/2021. FINDINGS: Limitations: Lack of intravenous contrast, motion artifact on multiple sequences Hepatobiliary: Hepatic steatosis is present. Localized atrophy involving the left hepatic lobe with numerous T2 hyperintensities remaining in the residual parenchyma. Some of these T2 hyperintensities appear clustered. There is some degree of intrahepatic biliary ductal dilatation centrally in the left hepatic lobe. Multiple T2 hyperintensities are present in the right hepatic lobe measuring up to at least 3.4 x 2.3 cm in the posterior right hepatic lobe. A 2.5 x 1.8 cm T2 hyperintense lesion is present in the region of the caudate. Numerous additional smaller lesions of varying T2 hyperintensity and T2 intermediate signal are present. Status post cholecystectomy. No right intrahepatic ductal dilatation or dilatation of the common bile duct. Spleen: Appears within normal limits. Pancreas: 3 to 4 mm T2 hyperintensity in the uncinate, axial sequence 1001 image 21. Pancreas otherwise is fairly homogeneous without adjacent stranding. Adrenal glands: No discrete mass or nodule. Kidneys: No obstructive uropathy. Several small T2 hyperintensities. Additional findings: Visualized small bowel is not abnormally dilated. Few colonic diverticula present in the visualized portions of the colon. No suspicious bulky adenopathy. No significant ascites. Multilevel degenerative spondylosis with scoliotic curvature in the visualized spine Abdominal aorta is normal in caliber. Susceptibility artifact from IVC filter. IMPRESSION: 1. Limited examination due to patient motion artifact and lack of intravenous contrast. Magnetic Resonance Imaging Report 2. Localized atrophy involving the left hepatic lobe with numerous T2 hyperintensities some of which appear clustered. Additionally there is some degree of mild left central intrahepatic biliary ductal dilatation. Recommend follow-up with MRCP/MRI, preferably with and without intravenous contrast if patient can tolerate. 3. Additional T2 hyperintensities in the right hepatic lobe some of which likely reflect simple cysts. Several of these demonstrate lower intermediate signal and are indeterminant. These should be reassessed on multiphase MRI or CT with and without intravenous contrast. 4. Solitary 3 to 4 mm T2 hyperintensity in the pancreas. This can be reassessed on multiphase imaging as well. Report Dictated on --- Final --- Dictating Physician: MD RHODES VLADIMIR Signed Date and Time: 10/23/2021 4:35 pm Signed by: MD RHODES VLADIMIR Transcribed Date and Time: 10/23/2021 4:36 NM LUNG VENT/PERFUSION (VQ) Result Date: 10/21/2021 Patient Name: ANDREW SIFUENTES Nuclear Medicine ACCESSION EXAM DATE/TIME PROCEDURE ORDERING PROVIDER [id number] 10/21/2021 07:55 EDT NM Pulmonary Perfusion [id number] -MAY CASH w/ Vent Aerosol CPT code 14681 A9567 Reason For Exam (NM Pulmonary Perfusion w/ Vent Aerosol) sob Report Study: VQ scan. CLINICAL INDICATION: Short of breath. Dose: Less than 2 mCi tc-99m DTPA, 5.0 mCi tc-99m MAA TECHNIQUE: Planar imaging of the chest performed in multiple projections after ventilation agent and subsequently after perfusion agent administered. Comparison: Chest x-ray 10/21/2021 Findings: Routine imaging was performed and viewed on a computer workstation. Chest x-ray shows clear lungs. Segmental unmatched perfusion deficits visible on the right. . Impression: High likelihood ratio for pulmonary embolism. Findings typical for PE. Critical test result. Discussed with Dr. Carter. Report Dictated on --- Final --- Dictating Physician: MD HARVEY JOHN Signed Date and Time: 10/21/2021 8:48 am Signed by: MD HARVEY JOHN Transcribed Date and Time: 10/21/2021 8:49 VL Ankle Art Brachial Indices Extremity Bilateral Result Date: 10/22/2021 [facility] --- Ankle Brachial Index Report Patient Gurpreet : 1950 Study 10/21/2021 Name: Andrew Gonzalez (71yrs) Date: Age: 71 Account: [id number] Gender: M Loc: 444W BP: Ordering Physician: Shruthi Malik Computational Theory Scientist: Rody Cross RDMS, RVT Interpreting Physician: Carina Call --- Location: [facility] --- Indications: Foot wounds. Originally ordered as a full PVR. Ordering HOUSEKEEPING MANAGER had to modify the order to ABIs due to patient's acute DVTs in his legs --- Conclusions 1. Right resting CARMELLA is 1.27. PVR waveforms appear normal at rest in the right ankle. 2. Right resting TBI is 0.96. This is within the normal range. PVR waveforms appear normal at rest in the right 1st toe, right 2nd toe, right 3rd toe, right 4th toe, and right 5th toe. 3. Left resting CARMELLA is 1.29. This is within the normal range. PVR waveforms appear normal at rest in the left ankle. 4. Left resting TBI is 0.48. These findings are abnormal. PVR waveforms appear mildly attenuated in the left 4th toe and left 5th toe. --- History: Risk factors: Immobility. Age over 65 years. --- Study data: Ankle Brachial Index. Pressure measurement and pulse volume recording. Location: Bedside. Procedure: A vascular evaluation was performed with the patient in the supine position. Images were obtained using a [employer] vascular ultrasound machine. --- Arterial pressure indices: + + +---- --------+ +Location +Pressure (REST)*+Index (REST)+ + + +---- --------+ +R brachial +109 + + + + +---- --------+ +R DP +152 +1.25 + + + +---- --------+ +R PT +155 +1.27 + + + +---- --------+ +R great toe+117 +0.96 + + + +---- --------+ +L brachial +122 + + + + +---- --------+ +L DP +157 +1.29 + + + +---- --------+ +L PT +154 +1.26 + + + +---- --------+ +L great toe+59 +0.48 + + + +---- --------+ Prepared and electronically signed by Carina Call 10/22/2021 13:21 VL LOWER EXTREMITY BILATERAL VENOUS DUPLEX Result Date: 10/21/2021 [facility] --- Lower Extremity Venous Duplex Report Patient DO GurpreetB: 1950 Study 10/21/2021 Name: Andrew Gonzalez (71yrs) Date: Age: 71 Account: [id number] Gender: M Loc: 444 BP: Ordering Physician: May Cash Computational Theory Scientist: Rody Cross RDMS, RVT Interpreting Physician: Carina Call --- Location: [facility] --- Indications: Bilateral lower leg edema. --- CRITICAL RESULTS: A critical finding, was reported to ATTILA Scherer by Rody Cross on 10/21/2021 , at 09:20 AM. Correct read-back was verified. --- Conclusions 1. Study shows an acute vs subacute deep vein thrombosis noted in the right common femoral vein, right saphenofemoral junction, and right deep femoral vein. 2. Study shows an acute deep vein thrombosis noted in the right femoral vein, right popliteal vein, right peroneal veins, right posterior tibial veins, and right gastrocnemius veins. 3. Study shows an acute deep vein thrombosis noted in the left gastrocnemius veins. 4. Study shows a chronic deep vein thrombosis noted in the left popliteal vein. 5. There is no evidence of superficial vein thrombosis noted in the right lower extremity. 6. There is no evidence of superficial vein thrombosis noted in the left lower extremity. --- History: Risk factors: Obese. Hypercoagulable state. Immobility. Age over 65 years. --- Study data: Complete lower extremity venous duplex evaluation. Grayscale 2D imaging, color Doppler imaging, and spectral Doppler analysis. Location: Bedside. Objective: Diagnostic evaluation. Procedure: A vascular evaluation was performed with the patient in the supine position. Images were obtained using a [employer] vascular ultrasound machine. --- Venous flow and imaging: + + + + --+ +Location +Overall +Thrombus +Properties + + + + + --+ +R CFV +Partially +Acute on chronic+ + + +occluded + + + + + + + --+ +R +Partially +Acute on chronic+ + +saphenofemoral +occluded + + + +junction + + + + + + + + --+ +R profunda +Partially +Acute on chronic+ + +femoral +occluded + + + + + + + --+ +R FV - prox. +Partially +Acute on chronic+ + + +occluded + + + + + + + --+ +R FV - mid +Patent +Acute + + + + + + --+ +R FV - distal +Totally occluded+Acute + + + + + + --+ +R popliteal +Totally occluded+ +Normal phasicity; + + + + +spontaneous; normal+ + + + +augmentation; + + + + +compressible + + + + + --+ +R gastrocnemius+Totally occluded+Acute + + + + + + --+ +R PTV +Totally occluded+Acute + + + + + + --+ +R peroneal +Totally occluded+Acute + + + + + + --+ +R soleal +Patent + +Compressible + + + + + --+ +R GSV +Patent + +Compressible + + + + + --+ +L CFV +Patent + +Normal phasicity; + + + + +spontaneous; normal+ + + + +augmentation; + + + + +compressible + + + + + --+ +L +Patent + +Compressible + +saphenofemoral + + + + +junction + + + + + + + + --+ +L profunda +Patent + + ---+ +femoral + + + + + + + + --+ +L FV - prox. +Patent + +Compressible + + + + + --+ +L FV - mid +Patent + +Normal phasicity; + + + + +spontaneous; normal+ + + + +augmentation; + + + + +compressible + + + + + --+ +L FV - distal +Patent + +Compressible + + + + + --+ +L popliteal +Partially +Chronic + + + +occluded + + + + + + + --+ +L gastrocnemius+Totally occluded+Acute + + + + + + --+ +L PTV +Patent + +Compressible + + + + + --+ +L peroneal +Patent + +Compressible + + + + + --+ +L soleal +Patent + +Compressible + + + + + --+ +L GSV +Patent + +Compressible + + + + + --+ Prepared and electronically signed by Carina Call 10/21/2021 11:58 XR Chest 1 VW Result Date: 10/21/2021 Patient Name: ANDREW SIFUENTES Diagnostic Radiology ACCESSION EXAM DATE/TIME PROCEDURE ORDERING PROVIDER [id number] 10/21/2021 08:16 EDT CR Chest 1 View Frontal [id number] MAY BOGGS CPT code 01368 Reason For Exam (CR Chest 1 View Frontal) follow to VQ scan Report EXAMINATION: PORTABLE CHEST RADIOGRAPH CLINICAL INDICATION: Shortness of breath TECHNIQUE: Portable AP COMPARISON: 08/17/2014. FINDINGS/IMPRESSION: Support lines and tubes: Left IJ central line terminates in the right atrium. Heart/Mediastinum: Normal Lungs/Pleura: No focal consolidation. No pleural effusions. No pneumothorax. Bones: No acute osseous abnormality. Report Dictated on --- Final --- Dictating Physician: MD KHARI, VENUS RAMOS Signed Date and Time: 10/21/2021 8:32 am Signed by: MD KHARI, VENUS RAMOS Transcribed Date and Time: 10/21/2021 8:33 CT Abdomen Pelvis Wo Contrast Result Date: 10/22/2021 Patient Name: ANDREW SIFUENTES Computed Tomography ACCESSION EXAM DATE/TIME PROCEDURE ORDERING PROVIDER [id number] 10/22/2021 13:[address] Abdomen/Pelvis (No SRIVASTAVA, WING PO, No IV) CPT code 81527 Reason For Exam (CT Abdomen/Pelvis (No PO, No IV)) Status of retroperitoneal bleed; Does this patient have an IVC filter in place? Report CLINICAL INFORMATION: History of retroperitoneal hemorrhage. Assess position of inferior vena cava filter. CT abdomen and pelvis without intravenous contrast: CT abdomen: Volume acquisition CT images are obtained the diaphragm to the iliac crests without oral or intravenous contrast administration with axial, coronal and sagittal 2-D reconstructions. There is no related prior examination at this institution for comparison/correlation. Images through the lower chest demonstrate mild streaky parenchymal densities in both lower lobes most likely mild scarring or atelectasis. There are no other significant abnormal pleural or parenchymal densities. There is a single punctate posterior right mid renal calcified calyceal calculus. No other calcified renal or proximal ureteral calculi are identified on either side. There is no hydronephrosis or proximal ureteral dilatation on either side. The unenhanced kidneys are otherwise unremarkable in size, configuration and density. No inflammatory changes are seen in the perinephric fat. There is no evidence of retroperitoneal hematoma. The unenhanced liver is unremarkable in size, configuration and density. There are multiple round hypodense lesions scattered throughout the liver of variable size with the largest in the prior superior aspect of the right lobe measuring 3.3 cm consistent with a cyst. Most of the lesions are too small to characterize but are most likely small cysts or hemangiomas. No other mass or intrahepatic biliary dilatation is seen. The gallbladder is surgically absent. The unenhanced spleen and pancreas are unremarkable in size, configuration and density. There is no adrenal gland mass or enlargement. There is no abnormality of the unopacified stomach, small or large bowel. There is no ascites or retroperitoneal lymphadenopathy. No other focal mass, fluid collection or inflammatory process is seen. There is minimal atherosclerotic calcification of an otherwise normal abdominal aorta. There is an inferior vena cava filter in the suprarenal inferior vena cava. The tips of the stems extend beyond the lateral margin of the IVC. Computed Tomography Report There are degenerative changes of the lumbar spine. CT pelvis: Volume acquisition CT images were obtained from the iliac crests to the symphysis pubis without oral or intravenous contrast administration with axial, coronal and sagittal 2-D reconstructions. There is no related prior examination at this institution for comparison/correlation. No calcified calculi or dilatation is seen of either distal ureter. There is an incompletely distended unopacified urinary bladder without calcified calculus, wall thickening or other visible abnormality. The prostate is not enlarged. No focal mass or fluid collection is seen. There is no iliac or inguinal lymphadenopathy. There are scattered sigmoid colon diverticula without evidence of diverticulitis. No ascites or inflammatory changes are identified. IMPRESSION: 1. Single punctate nonobstructing calcified right renal calyceal calculus. 2. No evidence for other calcified collecting system calculi or obstruction. 3. No evidence of retroperitoneal hematoma. 4. 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 5. Multiple well-defined hypodense hepatic lesions many of which are too small to characterize most likely multiple small cysts. 6. Minimal sigmoid diverticulosis without evidence of diverticulitis. 7. No evidence of other mass, lymphadenopathy or inflammatory process. Report Dictated on --- Final --- Dictating Physician: MD MELTON HARLAN Signed Date and Time: 10/22/2021 2:36 pm Signed by: MD MELTON HARLAN Transcribed Date and Time: 10/22/2021 2:37 MRI BRAIN WO CONTRAST Result Date: 10/27/2021 Patient Name: ANDREW SIFUENTES Magnetic Resonance Imaging ACCESSION EXAM DATE/TIME PROCEDURE ORDERING PROVIDER [id number] 10/27/2021 13:14 EDT MRI Brain w/o Contrast UNASSIGNED, UNASSIGNED CPT code 08496 Reason For Exam (MRI Brain w/o Contrast) stroke Patient has SUPERVISOR POST WAVE shunt in place, please follow Radiology protocol for the same and see if MRI brain can be done Report EXAMINATION: MRI BRAIN WITHOUT CONTRAST CLINICAL INDICATION: History of hydrocephalus and seizures, altered mental status TECHNIQUE: Multi-planar multi-sequential MR imaging of the brain was performed without intravenous contrast. COMPARISON: Head CT 10/26/2021. FINDINGS: Left parietal EVD with tip terminating in the right foramen of [place]. Right parietal EVD shunt terminating in the frontal horn of the right lateral ventricle also noted. There is also evidence of prior left frontal EVD shunt. No acute infarction, intracranial hemorrhage or mass. Chronic hemosiderin in the right parietal lobe and left frontal lobe, likely representing sequela of EVD insertion. There is confluent periventricular white matter disease, which may be due to combination of microangiopathic disease and sequela of EVD insertion. Mild diffuse parenchymal volume loss with diffuse prominence of the sulci and ventricles. Ventricles are decompressed.No extra-axial fluid collections. The skull base flow voids are present. The visualized intraorbital contents are normal. The imaged portions of the paranasal sinuses are clear. The mastoid air cells are clear. The visualized osseous structures, soft tissues and partially visualized parotid glands appear normal. IMPRESSION: No acute intracranial abnormality. Left parietal EVD noted. Indwelling tubing within the right parietal lobe from prior EVD. There is also evidence of previous left frontal EVD. Ventricles are decompressed. Confluent periventricular white matter disease, which may be due to combination of microangiopathic disease and sequela of EVD insertion. Magnetic Resonance Imaging Report Mild diffuse parenchymal volume loss. Report Dictated on --- Final --- Dictating Physician: MD KHARI, VENUS RAMOS Signed Date and Time: 10/27/2021 2:38 pm Signed by: MD LOYD WASSIM OSAMA Transcribed Date and Time: 10/27/2021 2:39 All questions and concerns were addressed. Katherine Barreto MD Neurology, Vascular Neurology 10/28/2021 12:44 PM Consults Images from the original note were not included. Hospitalist Progress Note 10/28/2021 11:37 AM [phone]: Please page me @ [phone] for patient care issues. [phone]: Please page expressive music therapist for any issues@ night Subjective: Admit Date: 10/21/2021 PCP: MONIKA STALEY MD No overnight issues. Denies chest pain, abdominal pain, nausea, vomiting, diarrhea, constipation, fevers, or chills. ADULT DIET; Easy to Chew ADULT ORAL NUTRITION SUPPLEMENT; Dinner, Breakfast; Standard 4 oz Oral Supplement No data found. Medications: sodium chloride levETIRAcetam 750 mg IntraVENous BID baclofen 10 mg Oral TID bumetanide 2 mg Oral Daily potassium chloride 20 mEq Oral Daily sodium chloride flush 5-40 mL IntraVENous 2 times per day LABS: CBC: Recent Labs 10/28/21417 WBC 10.0 RBC 3.94* HGB 11.0* HCT 33.4* MCV 84.8 RDW 17.1* PLT 344 BMP: Recent Labs 10/28/21417 NA 138 K 3.5 CL 104 CO2 29 BUN 16 CREATININE 0.71 GLUCOSE 117* CALCIUM 9.1 ANIONGAP 5 LIVER PROFILE: Recent Labs 10/28/21417 AST 24 ALT 26 BILITOT 0.4 ALKPHOS 103 LABALBU 3.7 PROT 7.1 PT/INR: Recent Labs 10/26/21 0319 10/27/21 0537 10/28/218 PROTIME 19.7* 21.9* 30.8* INR 1.9* 2.1* 3.1* CARDIAC ENZYMES: No results for input(s): TROPONINI in the last 72 hours. Procalcitonin: No results found for: PROCAL Objective: Vitals: BP 138/80 Pulse 87 Temp 97.3 F (36.3 C) (Temporal) Resp 16 Ht 5' 7.01 (1.702 m) Wt 240 lb (108.9 kg) SpO2 94% BMI 37.58 kg/m Pulse Ox: SpO2 Av % Min: 94 % Max: 96 % Supplemental O2: General appearance: Weak and lethargic, No apparent distress, appears stated age and cooperative with exam HEENT: Craniotomy scar Neck: Supple, with full range of motion. No jugular venous distention. Trachea midline. No lymphadenopathy. Respiratory: Normal respiratory effort. Clear to auscultation, bilaterally without Rales/Wheezes/Rhonchi. Cardiovascular: Regular rate and rhythm with normal S1/S2 without murmurs, rubs or gallops. Abdomen: Soft, non-tender, non-distended with normal bowel sounds. No rebound or guarding. Musculoskeletal: No edema bilaterally. Full range of motion without deformity. Skin: Skin color, texture, turgor normal. No rashes or lesions. Neurologic: Neurovascularly intact without any focal sensory/motor deficits. Cranial nerves: II-XII intact, grossly non-focal. Assessment # Acute DVT of the bilateral lower extremities failed Eliquis treatment-currently on Lovenox/Coumadin bridge, INR more than 2 today, no indication for IVC filter for now per vascular surgery # History of ventriculoperitoneal shunt placement, with infection, history of seizures, neurology following, MRI brain showed no acute intracranial abnormality and previous indwelling tubing history of SUPERVISOR POST WAVE shunt # Bilateral lower extremity wounds-wound care following and podiatry following, dressing changes, offload pressure # Alzheimer's dementia # Hepatic lesions on MRI abdomen possibly cysts, GI evaluated and signed off # Moderate malnutrition Plan : Continue Coumadin/Lovenox pharmacy managing, INR 2-3 for two days, today 3.1, appreciate wound care input. Neurology following All test and lab results reviewed Consult notes reviewed Am labs, replace lytes prn PT/OT ? Transfer when bed available -C diff risk - -DVT prophylaxis: [] Lovenox [] Heparin [] SCDs [x] Encourage ambulation [] Already on Anticoagulation Advance Directive: Full Code Discharge planning: TBD KARON CORRALES MD, , MD Division of Hospitalist Medicine Inpatient Medical Services This report was created using the [employer] voice-activated system. Despite prompt dictation and careful editorial review, there may be subtle contextual errors in this report, due to misrecognition of the spoken word. Speech Language Pathology Facility/Department: [facility] Dysphagia Treatment Note NAME: Andrew Sifuentes : 1950 Patient Diagnosis(es): Patient Active Problem List Diagnosis Flank pain, acute Night muscle spasms Chronic fatigue Hydrocephalus (HCC) Neuropathy Erectile dysfunction Fluid retention in tissues Hyperlipidemia Morbidly obese (HCC) Leg wound, left DVT, lower extremity, recurrent, unspecified laterality (HCC) Moderate malnutrition (HCC) History of seizures Allergies: Allergies Allergen Reactions Alcohol Morphine Onset Date: 10/21/2021 Oxygen Level: Room air Current Diet Level: Easy to chew, thin liquids Compensatory Techniques []Chin tuck [x]Small bolus []Alternate bites/ sips []No straws []Liquids by teaspoon only []Swallow x 2 with each bolus []Alternate lemon ice between each bolus []Position patient upright [x]Other assist/supervision Pain: RN managing pain S: Patient alert and upright in bed. Note slowed auditory processing with limited verbal response. Agreeable to PO intake for session O: Ongoing assessment of swallow efficiency and safe tolerance of recommended diet A: Intake of thin liquids via cup and straw. Patient demonstrated inconsistent ability to draw liquid through small bore straw, often requiring re-positioning of straw and multiple attempts. Thin liquid intake did not result in any overt signs/symptoms of airway penetration/aspiration. Intake of puree item per patient choice. Therapist fed patient providing external control of pacing and bolus size; with same, no overt signs/symptoms airway penetration/aspiration noted. [] Goal met [x] Progressing as expected [] Progressing slower than expected [] Medical status inhibits participation [] Goals not addressed this session [] Goals revised this session [] Unable to show any progress towards functional goals [] Progress towards functional goal is gradual / fair Routine Education: Results and recommendations from this session were discussed with the patient including: diet recommendations (easy to chew, thin liquids), swallowing strategies/compensatory techniques (see above), oropharyngeal strengthening exercises and potential next steps including additional diagnostic testing and treatment goals in the dysphagia plan of care. Patient shows limited comprehension due to decreased verbalizations and fatigue at end of session. Family were not available for session / education. P: Continue easy to chew with thin liquids, assist/supervise with PO intake, strategies as established. Time Out: 929 Session time: 25 minutes A KN95 mask and gloves were worn throughout this session. [facility] Anticoagulation Management Service ([facility]) Inpatient Warfarin Consult HPI: Andrew Sifuentes is a 71 y.o. 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 Pt was referred by BRIAN Webber. Pt is on warfarin for DVT and has a goal INR 2.0 - 3.0 . Duration of therapy= indefinite. Reason for warfarin instead of DOAC: DOAC failure PCP: MONIKA STALEY MD S/sx of bleeding= none noted Interacting medications= none Labs: Recent Labs 10/28/21417 HGB 11.0* HCT 33.4* PLT 344 Recent Labs 10/28/21417 INR 3.1* Date INR Dose 10/28 3.1 HOLD 10/27 2.1 7.5mg 10/26 1.9 7.5mg 10/25 1.5 7.5mg 10/24 1.2 7.5mg 10/23 1.1 7.5 mg 10/22 1.1 5 mg 10/21 1.1 5 mg Assessment/Plan: 1. INR is supratherapeutic d/t unknown cause. Will hold dose today. - Lovenox DC'd as therapeutic x2 2. Will monitor for s/s of bleeding and drug interactions and adjust dose accordingly. 3. IRVIN will manage while inpatient and sign off at discharge. Patient resides in a SNF. 4. Will provide warfarin education including [facility] warfarin booklet, if appropriate. Brionna Le, PharmD candidate Josie Gupta RP, PharmD IRVIN Consult Service is available daily [phone]. Please search for covering pharmacist name via ESILL[employer] or Groups --> Pharmacy --> Anti-Coagulation Consult Pharmacist (on 3rd page). If no response via ESILLAGE, please page [phone]. Follow up b/l foot wounds. No new complaints Ulcer left 5th metatarsal head with dry eschar. Wounds dorsal 4th and 5th toes with dry eschar. No sign of infection. Right lateral 5th metatarsal head and lateral right heel with dry eschar. No sign of infection. ulcer b/l heel and forefoot Foot drop b/l PE chart reviewed. Continue offloading and current wound care. Neurology Attending Progress Note SUBJECTIVE: No issues overnight. Care discussed with nursing staff/patient's medical team Assessment and Plan: 71 yr M with PMH obstructive hydrocephalus s/p SUPERVISOR POST WAVE shunt in 1987, needing multiple revisions and infections, H/O stroke in May 2021 with residual right sided weakness, H/O of PE on Eliquis, H/O seizure admitted with Right LE DVT, Eliquis changed to Coumadin during this admission by Hematology. Neurology consulted on 10/26/2021 for history of hydrocephalus and seizures at daughter's request. Per primary medical team patient did not have any witnessed seizure this admission. CT head done during this admission reported no hydrocephalus, ventricles within normal limits and both old and new SUPERVISOR POST WAVE shunt tubing noted. At present patient is awake, follows commands, was able to tell his name, and that he was in hospital but not oriented to time. Per documentation patient had NCSE in May 2021, was on Vimpat, but it was discontinued as there was no evidence of recurrent seizures in july 2021 by Neurology at [facility], per daughter patient was on Dilantin for 31 yrs. Per daughter patient had seizures in the past and also felt he had staring episodes 10/26/2021 morning. Per daughter patient has been essentially bed bound in [place] since May 2021 but prior to that was independent Impressions: H/O hydrocephalus H/O seizure, H/O stroke Acute DVT H/O PE Plan: -MRI brain w/o contrast. Per daughter she would like MRI brain done to evaluate for strokes -CT head done during this admission today reported no hydrocephalus, ventricles within normal limits and both old and new SUPERVISOR POST WAVE shunt tubing noted -EEG mild to moderate slow, no seizures reported -Labs reviewed -Hydrocephalus management per Neurosurgery. At present patient does not have hydrocephalus on CT head done this admission. No Neurosurgery services available as inpatient in [facility]. Patient can follow up with Neurosurgery as outpatient and if ends up needing inpatient neurosurgery requirement then may need to be transferred to [facility]. -No clear clinical signs of ventriculitis. Defer evaluation to primary medical team/ID as deemed necessary. -Discussed with daughter in detail on . She was concerned that patient has had h/o seizures, and he has been taken off seizure medication, per note documentation patient had NCSE in May 2021 when he was admitted to [facility]. Per daughter she would want patient to be on seizure medication given his h/o recurrent seizures. -Started on Keppra 750 mg BID. S/E discussed in detail. Patient tolerating medication well -On Coumadin. Goal INR 2-3 -Consider Lipitor 20 mg PO qhs given h/o stroke -GI/DVT prophylaxis -PT/OT/ST -Fall precautions -Further medical management per medical team -Follow up with Neurology in 4 weeks as outpatient -Please call with questions if any. -Thank you for allowing us to participate in patients care and management. -All questions were answered -Will follow up MRI Brain and pending neurological test results peripherally when done and follow up patient as needed, will sign off at present. Please call with questions if any in the interim. This note has been generated using [employer] dictation software. It may contain incorrect words, punctuation's and spellings that were not noted in the review of the note prior to signing. This note has been generated using [employer] dictation software. It may contain incorrect words, punctuation's and spellings that were not noted in the review of the note prior to signing. PMH/PSH/ROS/Medications/FH/SH-as documented in the initial consult note. Physical Examination: Patient Vitals for the past 8 hrs: BP Temp Temp src Pulse Resp SpO2 10/27/21 0804 103/73 97.3 F (36.3 C) Temporal 77 16 94 % No intake/output data recorded. PHYSICAL EXAM: General Examination: conscious, alert, oriented, AoA x2 HEENT: normocephalic, pupils BERL Heart: normal S1 S2 Lungs: Bilateral air entry present Abdomen: bowel sounds present Psychiatry: Denies Anxiety, depression or suicidal ideations at present Neuro: Conscious, alert, oriented AoA x2, CN II-XII no Nystagmus, EOMI, pupils BERL, No facial sensory loss, no facial asymmetry, tongue protrudes in midline, Power 5/5 left UE/LE, possible mild chronic right UE/LE weakness, distal small muscle right hand weakness, tone mildly increased right UE, No tremors, No pronator drift, Reflexes + B/S/T/K/A, Plantars B/L flexor, No cerebellar signs, Romberg s deferred, No sensory loss to light touch/temperature, gait deferred, No frontal release signs. No involuntary movements, No NR, No Kernig s sign, No Brudzinski s sign Results Labs: Last 24hrs Recent Results (from the past 24 hour(s)) Protime-INR Collection Time: 10/27/21 5:37 AM Result Value Ref Range Protime 21.9 (H) 9.0 - 12.0 s INR 2.1 (H) 0.9 - 1.1 NA Since admission: No results for input(s): CKTOTAL, TROPONINI in the last 72 hours. No results for input(s): ALKPHOS, ALT, AST, BILITOT, BILIDIR, LABALBU, AMYLASE, LIPASE in the last 72 hours.@BRIEFLAB([facility]) ABGs: )No results for input(s): PH, PO2, PCO2, HCO3, BE, O2SAT in the last 72 hours. Cultures: Blood culture #1: No results for input(s): BC in the last 72 hours. Blood culture #2: No results for input(s): BLOODCULT2 in the last 72 hours. Antiepileptic levels: No results for input(s): PHENYTOIN, CARBTOT, PHENOBARB, VALPROATE in the last 72 hours. Invalid input(s): LAMOTRIG, KEPPRA Coagulation: Recent Labs 10/25/21 0610 10/26/21 0319 10/27/21 0537 INR 1.5* 1.9* 2.1* CSF: No results for input(s): CHARCSF, CULTURE in the last 72 hours. Invalid input(s): CELL COUNT, GRAM STAIN, PROTEIN Stroke Specific: Lipids: No results for input(s): CHOL, LDLCHOLESTEROL, TRIG, HDL, AMYLASE, LIPASE in the last 72 hours. HgA1c: No results for input(s): LABA1C in the last 72 hours. Radiology: XR CALCANEUS LEFT (MIN 2 VIEWS) Result Date: 10/21/2021 Patient Name: ANDREW SIFUENTES Diagnostic Radiology ACCESSION EXAM DATE/TIME PROCEDURE ORDERING PROVIDER [id number] 10/21/2021 15:30 EDT CR Calcaneus 2+ Views [id number] -SHRUTHI MALIK Left CPT code 65527 Reason For Exam (CR Calcaneus 2+ Views Left) unstageable ulceration possible osteomyelitis , 3 views please. Report Examination: CR Calcaneus 2+ Views Left Clinical: unstageable ulceration possible osteomyelitis , 3 views please. Comparison: None Findings: AP and lateral views of the left calcaneus. Osteopenia. 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 Degenerative changes along the os trigonum posteriorly. Atherosclerotic calcification posterior to the ankle. There is some calcification seen at the plantar aponeurotic origin. There is superficial soft tissue erosion seen along the medial aspect of the calcaneus. No deep subcutaneous air or foreign body is seen. There is very subtle surface irregularity seen along the posterior medial calcaneus which could be related to enthesophyte. A subtle surface erosion is not entirely excluded. No evidence of osteomyelitis is seen on the lateral projection. Midfoot demonstrates minimal osteoarthropathy. Impression: 1. Soft tissue fairly superficial ulceration along the posterior lateral aspect of the left calcaneus. 2. Nonspecific subtle surface irregularity along the posterior lateral calcaneus which could be related to enthesophytes. No definite acute osteomyelitis. If concern for early, superficial osteomyelitis, MRI or bone scan could be considered for more sensitive evaluation. 3. 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 Degenerative changes also seen along the os trigonum. Diagnostic Radiology Report Report Dictated on --- Final --- Dictating Physician: MD WONG ANTHONY J Signed Date and Time: 10/21/2021 4:31 pm Signed by: MD WONG ANTHONY J Transcribed Date and Time: 10/21/2021 4:33 CT HEAD WO CONTRAST Result Date: 10/26/2021 Patient Name: ANDREW SIFUENTES Computed Tomography ACCESSION EXAM DATE/TIME PROCEDURE ORDERING PROVIDER [id number] 10/26/2021 11:[address] Head or Brain w/o JUNIE PINEDA, SARINA Contrast CPT code 41166 Reason For Exam (CT Head or Brain w/o Contrast) hydrocephalus. thank you Report CLINICAL INFORMATION: Hydrocephalus. Shunt. 3 mm axial cuts through the head are obtained without IV contrast. The examination is compared to a previous study dated 06/29/2014. FINDINGS: Old SUPERVISOR POST WAVE shunt tubing is noted bilaterally. The new or shunt on the left (via the left parietal lobe) terminates just across the midline in the region of the 3rd ventricle. The ventricles are within normal limits in respect to their size and configuration. There is no hydrocephalus. There is no evidence of mass or mass-effect. There are no abnormal intra- or extra-axial fluid collections. No hemorrhage is identified. There is mild cortical atrophy. Patchy low-attenuation is noted within the periventricular, deep, and subcortical white matter. There is no CT evidence of an acute infarct. Bone windows demonstrate no evidence of fracture and the visualized paranasal sinuses and mastoid air cells are clear. IMPRESSION: 1. Old and new SUPERVISOR POST WAVE shunt tubing. 2. No hydrocephalus. 3. Atrophy and evidence of small-vessel ischemic disease. 4. No CT evidence of an acute intracranial process. Report Dictated on --- Final --- Dictating Physician: MD SOLANO JEFFREY Signed Date and Time: 10/26/2021 11:42 am Signed by: MD SOLANO JEFFREY Transcribed Date and Time: 10/26/2021 11:43 MRI ABDOMEN WO CONTRAST Result Date: 10/23/2021 Patient Name: ANDREW SIFUENTES Magnetic Resonance Imaging ACCESSION EXAM DATE/TIME PROCEDURE ORDERING PROVIDER [id number] 10/23/2021 11:08 EDT MRI Abdomen w/o Contrast WING SRIVASTAVA CPT code 01196 Reason For Exam (MRI Abdomen w/o Contrast) Status of Liver Lesions. Report MRI ABDOMEN WITHOUT CONTRAST: CLINICAL INDICATION: Liver lesions on CT. TECHNIQUE: Coronal and transaxial fast spin density along with transaxial in phase and opposed phase gradient echo, fast T2 fat suppression sequences and diffusion-weighted sequences were formed through the abdomen with attention to the liver. COMPARISON: CT abdomen pelvis 10/22/2021. FINDINGS: Limitations: Lack of intravenous contrast, motion artifact on multiple sequences Hepatobiliary: Hepatic steatosis is present. Localized atrophy involving the left hepatic lobe with numerous T2 hyperintensities remaining in the residual parenchyma. Some of these T2 hyperintensities appear clustered. There is some degree of intrahepatic biliary ductal dilatation centrally in the left hepatic lobe. Multiple T2 hyperintensities are present in the right hepatic lobe measuring up to at least 3.4 x 2.3 cm in the posterior right hepatic lobe. A 2.5 x 1.8 cm T2 hyperintense lesion is present in the region of the caudate. Numerous additional smaller lesions of varying T2 hyperintensity and T2 intermediate signal are present. Status post cholecystectomy. No right intrahepatic ductal dilatation or dilatation of the common bile duct. Spleen: Appears within normal limits. Pancreas: 3 to 4 mm T2 hyperintensity in the uncinate, axial sequence 1001 image 21. Pancreas otherwise is fairly homogeneous without adjacent stranding. Adrenal glands: No discrete mass or nodule. Kidneys: No obstructive uropathy. Several small T2 hyperintensities. Additional findings: Visualized small bowel is not abnormally dilated. Few colonic diverticula present in the visualized portions of the colon. No suspicious bulky adenopathy. No significant ascites. Multilevel degenerative spondylosis with scoliotic curvature in the visualized spine Abdominal aorta is normal in caliber. Susceptibility artifact from IVC filter. IMPRESSION: 1. Limited examination due to patient motion artifact and lack of intravenous contrast. Magnetic Resonance Imaging Report 2. Localized atrophy involving the left hepatic lobe with numerous T2 hyperintensities some of which appear clustered. Additionally there is some degree of mild left central intrahepatic biliary ductal dilatation. Recommend follow-up with MRCP/MRI, preferably with and without intravenous contrast if patient can tolerate. 3. Additional T2 hyperintensities in the right hepatic lobe some of which likely reflect simple cysts. Several of these demonstrate lower intermediate signal and are indeterminant. These should be reassessed on multiphase MRI or CT with and without intravenous contrast. 4. Solitary 3 to 4 mm T2 hyperintensity in the pancreas. This can be reassessed on multiphase imaging as well. Report Dictated on --- Final --- Dictating Physician: MD RHODES VLADIMIR Signed Date and Time: 10/23/2021 4:35 pm Signed by: MD RHODES VLADIMIR Transcribed Date and Time: 10/23/2021 4:36 NM LUNG VENT/PERFUSION (VQ) Result Date: 10/21/2021 Patient Name: ANDREW SIFUENTES Nuclear Medicine ACCESSION EXAM DATE/TIME PROCEDURE ORDERING PROVIDER [id number] 10/21/2021 07:55 EDT NM Pulmonary Perfusion [id number] MAY BOGGS w/ Vent Aerosol CPT code 96314 A9567 Reason For Exam (NM Pulmonary Perfusion w/ Vent Aerosol) sob Report Study: VQ scan. CLINICAL INDICATION: Short of breath. Dose: Less than 2 mCi tc-99m DTPA, 5.0 mCi tc-99m MAA TECHNIQUE: Planar imaging of the chest performed in multiple projections after ventilation agent and subsequently after perfusion agent administered. Comparison: Chest x-ray 10/21/2021 Findings: Routine imaging was performed and viewed on a computer workstation. Chest x-ray shows clear lungs. Segmental unmatched perfusion deficits visible on the right. . Impression: High likelihood ratio for pulmonary embolism. Findings typical for PE. Critical test result. Discussed with Dr. Carter. Report Dictated on --- Final --- Dictating Physician: MD HARVEY JOHN Signed Date and Time: 10/21/2021 8:48 am Signed by: MD HARVEY JOHN Transcribed Date and Time: 10/21/2021 8:49 VL Ankle Art Brachial Indices Extremity Bilateral Result Date: 10/22/2021 [facility] --- Ankle Brachial Index Report Patient DO GurpreetB: 1950 Study 10/21/2021 Name: Andrew Gonzalez (71yrs) Date: Age: 71 Account: [id number] Gender: M Loc: 444W BP: Ordering Physician: Shruthi Malik Computational Theory Scientist: Rody Cross RDMS, RVT Interpreting Physician: Carina Call --- Location: [facility] --- Indications: Foot wounds. Originally ordered as a full PVR. Ordering HOUSEKEEPING MANAGER had to modify the order to ABIs due to patient's acute DVTs in his legs --- Conclusions 1. Right resting CARMELLA is 1.27. PVR waveforms appear normal at rest in the right ankle. 2. Right resting TBI is 0.96. This is within the normal range. PVR waveforms appear normal at rest in the right 1st toe, right 2nd toe, right 3rd toe, right 4th toe, and right 5th toe. 3. Left resting CARMELLA is 1.29. This is within the normal range. PVR waveforms appear normal at rest in the left ankle. 4. Left resting TBI is 0.48. These findings are abnormal. PVR waveforms appear mildly attenuated in the left 4th toe and left 5th toe. --- History: Risk factors: Immobility. Age over 65 years. --- Study data: Ankle Brachial Index. Pressure measurement and pulse volume recording. Location: Bedside. Procedure: A vascular evaluation was performed with the patient in the supine position. Images were obtained using a [employer] vascular ultrasound machine. --- Arterial pressure indices: + + +---- --------+ +Location +Pressure (REST)*+Index (REST)+ + + +---- --------+ +R brachial +109 + + + + +---- --------+ +R DP +152 +1.25 + + + +---- --------+ +R PT +155 +1.27 + + + +---- --------+ +R great toe+117 +0.96 + + + +---- --------+ +L brachial +122 + + + + +---- --------+ +L DP +157 +1.29 + + + +---- --------+ +L PT +154 +1.26 + + + +---- --------+ +L great toe+59 +0.48 + + + +---- --------+ Prepared and electronically signed by Carina Call 10/22/2021 13:21 VL LOWER EXTREMITY BILATERAL VENOUS DUPLEX Result Date: 10/21/2021 [facility] --- Lower Extremity Venous Duplex Report Patient DO GurpreetB: 1950 Study 10/21/2021 Name: Andrew Gonzalez (71yrs) Date: Age: 71 Account: [id number] Gender: M Loc: 444 BP: Ordering Physician: May Cash Computational Theory Scientist: Rody Cross RDMS, RVT Interpreting Physician: Carina Call --- Location: [facility] --- Indications: Bilateral lower leg edema. --- CRITICAL RESULTS: A critical finding, was reported to ATTILA Scherer by Rody Cross , on 10/21/2021 , at 09:20 AM. Correct read-back was verified. --- Conclusions 1. Study shows an acute vs subacute deep vein thrombosis noted in the right common femoral vein, right saphenofemoral junction, and right deep femoral vein. 2. Study shows an acute deep vein thrombosis noted in the right femoral vein, right popliteal vein, right peroneal veins, right posterior tibial veins, and right gastrocnemius veins. 3. Study shows an acute deep vein thrombosis noted in the left gastrocnemius veins. 4. Study shows a chronic deep vein thrombosis noted in the left popliteal vein. 5. There is no evidence of superficial vein thrombosis noted in the right lower extremity. 6. There is no evidence of superficial vein thrombosis noted in the left lower extremity. --- History: Risk factors: Obese. Hypercoagulable state. Immobility. Age over 65 years. --- Study data: Complete lower extremity venous duplex evaluation. Grayscale 2D imaging, color Doppler imaging, and spectral Doppler analysis. Location: Bedside. Objective: Diagnostic evaluation. Procedure: A vascular evaluation was performed with the patient in the supine position. Images were obtained using a [employer] vascular ultrasound machine. --- Venous flow and imaging: + + + + --+ +Location +Overall +Thrombus +Properties + + + + + --+ +R CFV +Partially +Acute on chronic+ + + +occluded + + + + + + + --+ +R +Partially +Acute on chronic+ + +saphenofemoral +occluded + + + +junction + + + + + + + + --+ +R profunda +Partially +Acute on chronic+ + +femoral +occluded + + + + + + + --+ +R FV - prox. +Partially +Acute on chronic+ + + +occluded + + + + + + + --+ +R FV - mid +Patent +Acute + + + + + + --+ +R FV - distal +Totally occluded+Acute + + + + + + --+ +R popliteal +Totally occluded+ +Normal phasicity; + + + + +spontaneous; normal+ + + + +augmentation; + + + + +compressible + + + + + --+ +R gastrocnemius+Totally occluded+Acute + + + + + + --+ +R PTV +Totally occluded+Acute + + + + + + --+ +R peroneal +Totally occluded+Acute + + + + + + --+ +R soleal +Patent + +Compressible + + + + + --+ +R GSV +Patent + +Compressible + + + + + --+ +L CFV +Patent + +Normal phasicity; + + + + +spontaneous; normal+ + + + +augmentation; + + + + +compressible + + + + + --+ +L +Patent + +Compressible + +saphenofemoral + + + + +junction + + + + + + + + --+ +L profunda +Patent + + ---+ +femoral + + + + + + + + --+ +L FV - prox. +Patent + +Compressible + + + + + --+ +L FV - mid +Patent + +Normal phasicity; + + + + +spontaneous; normal+ + + + +augmentation; + + + + +compressible + + + + + --+ +L FV - distal +Patent + +Compressible + + + + + --+ +L popliteal +Partially +Chronic + + + +occluded + + + + + + + --+ +L gastrocnemius+Totally occluded+Acute + + + + + + --+ +L PTV +Patent + +Compressible + + + + + --+ +L peroneal +Patent + +Compressible + + + + + --+ +L soleal +Patent + +Compressible + + + + + --+ +L GSV +Patent + +Compressible + + + + + --+ Prepared and electronically signed by Carina Call 10/21/2021 11:58 XR Chest 1 VW Result Date: 10/21/2021 Patient Name: ANDREW SIFUENTES Diagnostic Radiology ACCESSION EXAM DATE/TIME PROCEDURE ORDERING PROVIDER [id number] 10/21/2021 08:16 EDT CR Chest 1 View Frontal [id number] [facility] CPT code 03083 Reason For Exam (CR Chest 1 View Frontal) follow to VQ scan Report EXAMINATION: PORTABLE CHEST RADIOGRAPH CLINICAL INDICATION: Shortness of breath TECHNIQUE: Portable AP COMPARISON: 08/17/2014. FINDINGS/IMPRESSION: Support lines and tubes: Left IJ central line terminates in the right atrium. Heart/Mediastinum: Normal Lungs/Pleura: No focal consolidation. No pleural effusions. No pneumothorax. Bones: No acute osseous abnormality. Report Dictated on --- Final --- Dictating Physician: MD KHARI, VENUS RAMOS Signed Date and Time: 10/21/2021 8:32 am Signed by: MD KHARI, VENUS RAMOS Transcribed Date and Time: 10/21/2021 8:33 CT Abdomen Pelvis Wo Contrast Result Date: 10/22/2021 Patient Name: ANDREW SIFUENTES Computed Tomography ACCESSION EXAM DATE/TIME PROCEDURE ORDERING PROVIDER [id number] 10/22/2021 13:[address] Abdomen/Pelvis (No SRIVASTAVAWING KESSLER PO, No IV) CPT code 33770 Reason For Exam (CT Abdomen/Pelvis (No PO, No IV)) Status of retroperitoneal bleed; Does this patient have an IVC filter in place? Report CLINICAL INFORMATION: History of retroperitoneal hemorrhage. Assess position of inferior vena cava filter. CT abdomen and pelvis without intravenous contrast: CT abdomen: Volume acquisition CT images are obtained the diaphragm to the iliac crests without oral or intravenous contrast administration with axial, coronal and sagittal 2-D reconstructions. There is no related prior examination at this institution for comparison/correlation. Images through the lower chest demonstrate mild streaky parenchymal densities in both lower lobes most likely mild scarring or atelectasis. There are no other significant abnormal pleural or parenchymal densities. There is a single punctate posterior right mid renal calcified calyceal calculus. No other calcified renal or proximal ureteral calculi are identified on either side. There is no hydronephrosis or proximal ureteral dilatation on either side. The unenhanced kidneys are otherwise unremarkable in size, configuration and density. No inflammatory changes are seen in the perinephric fat. There is no evidence of retroperitoneal hematoma. The unenhanced liver is unremarkable in size, configuration and density. There are multiple round hypodense lesions scattered throughout the liver of variable size with the largest in the prior superior aspect of the right lobe measuring 3.3 cm consistent with a cyst. Most of the lesions are too small to characterize but are most likely small cysts or hemangiomas. No other mass or intrahepatic biliary dilatation is seen. The gallbladder is surgically absent. The unenhanced spleen and pancreas are unremarkable in size, configuration and density. There is no adrenal gland mass or enlargement. There is no abnormality of the unopacified stomach, small or large bowel. There is no ascites or retroperitoneal lymphadenopathy. No other focal mass, fluid collection or inflammatory process is seen. There is minimal atherosclerotic calcification of an otherwise normal abdominal aorta. There is an inferior vena cava filter in the suprarenal inferior vena cava. The tips of the stems extend beyond the lateral margin of the IVC. Computed Tomography Report There are degenerative changes of the lumbar spine. CT pelvis: Volume acquisition CT images were obtained from the iliac crests to the symphysis pubis without oral or intravenous contrast administration with axial, coronal and sagittal 2-D reconstructions. There is no related prior examination at this institution for comparison/correlation. No calcified calculi or dilatation is seen of either distal ureter. There is an incompletely distended unopacified urinary bladder without calcified calculus, wall thickening or other visible abnormality. The prostate is not enlarged. No focal mass or fluid collection is seen. There is no iliac or inguinal lymphadenopathy. There are scattered sigmoid colon diverticula without evidence of diverticulitis. No ascites or inflammatory changes are identified. IMPRESSION: 1. Single punctate nonobstructing calcified right renal calyceal calculus. 2. No evidence for other calcified collecting system calculi or obstruction. 3. No evidence of retroperitoneal hematoma. 4. 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 5. Multiple well-defined hypodense hepatic lesions many of which are too small to characterize most likely multiple small cysts. 6. Minimal sigmoid diverticulosis without evidence of diverticulitis. 7. No evidence of other mass, lymphadenopathy or inflammatory process. Report Dictated on --- Final --- Dictating Physician: MD MELTON HARLAN Signed Date and Time: 10/22/2021 2:36 pm Signed by: MD MELTON HARLAN Transcribed Date and Time: 10/22/2021 2:37 All questions and concerns were addressed. Katherine Barreto MD Neurology, Vascular Neurology 10/27/2021 12:48 PM Consults Speech Language Pathology Facility/Department: [facility] MED SURG Dysphagia Treatment Note NAME: Andrew Sifuentes : 1950 Allergies: Allergies Allergen Reactions Alcohol Morphine O2 Device: None (Room air) Current Diet Level: Easy to chew with thin liquids with small diameter straw (regular) Compensatory Techniques [x]Single bolus [x]Alternate bites/ sips [x]regular/small straws [x]External pacing [x]Position patient upright [x]Assist Pain:no current complaints. S: Pt asked for banana for snack. Lunch tray is currently being put together per dietary. O: Assess tolerance of recommended diet. A: Pt was unable to state swallowing strategies independently. He takes large or multiple bites at a time. After cues improved function to single bite and was setting 'banana' down between bites. Cues necessary to ensure clearing. Neuro was consulted for f/u with seizure concern. H/o of same. EEG impressions 10/26/21: IMPRESSION AND ACTIONS TAKEN: This routine awake and drowsy EEG study is abnormal. There is continuous generalized slowing with reactivity and state change, indicative of a mezy-ox-tdaxdrhr diffuse encephalopathy of nonspecific etiology. There are no epileptiform discharges, seizures, or lateralizing signs. Pt continue with brief periods of delayed response/pauses noted with po trial. Cues provided to continue chewing and clear. Recommend continue assist with po intake for safety and oral clearing due to decrease memory and recall. [] Goal met [x] Progressing as expected [] Progressing slower than expected [] Medical status inhibits participation [] Goals not addressed this session [] Goals revised this session [] Unable to show any progress towards functional goals [] Progress towards functional goal is gradual / fair Routine Education: Remind pt of swallowing strategies. Decreased memory requires assist with meal to ensure smaller single bite size and oral clearing between bites. P: Continue dysphagia POC. Pt is most appropriate on Easy to chew diet/cut up. NEVILLE Jones M.A.[facility]/SIGNAL MAINTAINER HELPER Time session ended: 1156 Total session minutes: 23 Images from the original note were not included. Hospitalist Progress Note 10/27/2021 10:40 AM [phone]: Please page id @ [phone] for patient care issues. [phone]: Please page expressive music therapist for any issues@ night Subjective: Admit Date: 10/21/2021 PCP: MONIKA STALEY MD Patient was admitted few days ago with a DVT in bilateral lower extremities, was on Eliquis for history of PE. Currently on Coumadin/Lovenox bridge, pharmacy managing the dose Poor historian and has a history of dementia. Responds slowly when asked if he is doing well he states I am okay ADULT DIET; Easy to Chew ADULT ORAL NUTRITION SUPPLEMENT; Dinner, Breakfast; Standard 4 oz Oral Supplement No data found. Medications: sodium chloride warfarin 7.5 mg Oral Once levETIRAcetam 750 mg IntraVENous BID baclofen 10 mg Oral TID bumetanide 2 mg Oral Daily potassium chloride 20 mEq Oral Daily sodium chloride flush 5-40 mL IntraVENous 2 times per day enoxaparin 1 mg/kg SubCUTAneous BID LABS: CBC: No results for input(s): WBC, RBC, HGB, HCT, MCV, RDW, PLT in the last 72 hours. BMP:No results for input(s): NA, K, CL, CO2, BUN, CREATININE, GLUCOSE, CALCIUM, ANIONGAP in the last 72 hours. LIVER PROFILE:No results for input(s): AST, ALT, BILITOT, ALKPHOS, LABALBU, PROT in the last 72 hours. PT/INR: Recent Labs 10/25/21 0610 10/26/21 0319 10/27/21 0537 PROTIME 15.6* 19.7* 21.9* INR 1.5* 1.9* 2.1* CARDIAC ENZYMES: No results for input(s): TROPONINI in the last 72 hours. Procalcitonin: No results found for: PROCAL Objective: Vitals: BP 103/73 Pulse 77 Temp 97.3 F (36.3 C) (Temporal) Resp 16 Ht 5' 7.01 (1.702 m) Wt 240 lb (108.9 kg) SpO2 94% BMI 37.58 kg/m Pulse Ox: SpO2 Av.5 % Min: 94 % Max: 97 % Supplemental O2: General appearance: weak and lethargic, No apparent distress, appears stated age and cooperative with exam HEENT: Normal cephalic, atraumatic without obvious deformity. Pupils equal, round, and reactive to light. Extra ocular muscles intact. Conjunctivae/corneas clear. Neck: Supple, with full range of motion. No jugular venous distention. Trachea midline. No lymphadenopathy. Respiratory: Normal respiratory effort. Clear to auscultation, bilaterally without Rales/Wheezes/Rhonchi. Cardiovascular: Regular rate and rhythm with normal S1/S2 without murmurs, rubs or gallops. Abdomen: Soft, non-tender, non-distended with normal bowel sounds. No rebound or guarding. Musculoskeletal: Bilateral lower ext wounds, wrapped Skin: Chronic skin changes of the legs, with bilateral LE wounds - wrapped Neurologic: Neurovascularly intact without any focal sensory/motor deficits. Cranial nerves: II-XII intact, grossly non-focal. Assessment # Acute DVT of the bilateral lower extremities failed Eliquis treatment-currently on Lovenox/Coumadin bridge, INR more than 2 today, no indication for IVC filter for now per vascular surgery # History of ventriculoperitoneal shunt placement, with infection, history of seizures, neurology following, pending MRI brain # Bilateral lower extremity wounds-wound care following and podiatry following, dressing changes, offload pressure # Alzheimer's dementia #Hepatic lesions on MRI abdomen possibly cysts, GI evaluated and signed off Plan : Continue Coumadin/Lovenox pharmacy managing Pending MRI brain Appreciate wound care input All test and lab results reviewed Consult notes reviewed Am labs, replace lytes prn PT/OT, await evaluations -DVT prophylaxis: [] Lovenox [] Heparin [] SCDs [x] Encourage ambulation [] Already on Anticoagulation Advance Directive: Full Code Discharge planning: MATEO CORRALES MD, , MD Division of Hospitalist Medicine Inpatient Medical Services This report was created using the [employer] Speaking voice-activated system. Despite prompt dictation and careful editorial review, there may be subtle contextual errors in this report, due to misrecognition of the spoken word. [facility] Anticoagulation Management Service ([facility]) Inpatient Warfarin Consult HPI: Andrew Sifuentes is a 71 y.o. 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 Pt was referred by Ellen Scherer APRN-VICTORIANO. Pt is on warfarin for DVT and has a goal INR 2.0 - 3.0 . Duration of therapy= indefinite. Reason for warfarin instead of DOAC: DOAC failure PCP: MONIKA STALEY MD S/sx of bleeding= none noted Interacting medications= therapeutic enoxaparin Labs: No results for input(s): HGB, HCT, PLT in the last 72 hours. Recent Labs 10/27/21 0537 INR 2.1* Date INR Dose 10/27 2.1 7.5mg 10/26 1.9 7.5mg 10/25 1.5 7.5mg 10/24 1.2 7.5mg 10/23 1.1 7.5 mg 10/22 1.1 5 mg 10/21 1.1 5 mg Assessment/Plan: 1. INR is therapeutic. Will continue dose of 7.5 mg today. 2. Will monitor for s/s of bleeding and drug interactions and adjust dose accordingly. 3. [facility] will manage while inpatient and sign off at discharge. Patient resides in a SNF. 4. Will provide warfarin education including [facility] warfarin booklet, if appropriate. Thank you for this consult Brionna Le, PharmD candidate Josie Gupta RPh, PharmD [facility] Consult Service is available daily [phone]. Please search for covering pharmacist name via [employer] or Groups --> Pharmacy --> Anti-Coagulation Consult Pharmacist (on 3rd page). If no response via [employer], please page [phone]. I cleaned under patient's finger nails with soft wipe to remove debrib Also placed dr wash cloth/hand roll in right hand to prevent finger nails cutting into palm. I am unable to cut finger nails related to on Coumadin. I asked Dr. Sprague regarding toenaill and he said because he is on Coumadin he can have nails cut when he returns to facility. Daughter aware. Patient seen and chart reviewed. Events of today noted. Resting comfortably. No bleed or further thrombosis. Afebrile. Adequate oxygenation on room air. Exam otherwise stable X 5 systems. PT 19.7 INR 1.9 Patient approaching therapeutic status with Warfarin. Discussed with patient's staff development coordinator. Will continue to monitor. Total visit time > 35 minutes. Progress Note 10/26/2021 1:40 PM Name: Andrew Sifuentes Day: 5 Admit Date: 10/21/2021 12:43 AM PCP: MONIKA STALEY MD Code Status: Full Code Subjective: No acute complaints. Pt is sitting up in bed, feeding himself lunch. He is oriented to name, birthdate. Able to state daughter's name is Moon. Not oriented to place. Follows commands. Denies f/c, cp, sob, n/v/changes in BM Physical Examination: PHYSICAL EXAM: Vitals: BP 132/85 Pulse 85 Temp (!) 96.5 F (35.8 C) (Temporal) Resp 16 Ht 5' 7.01 (1.702 m) Wt 240 lb (108.9 kg) SpO2 90% BMI 37.58 kg/m BMI Classification: Obese (BMI 30.0-39.9) General appearance: No apparent distress, appears stated age and cooperative. HEENT: Normal cephalic, atraumatic without obvious deformity. Conjunctivae/corneas clear. Evidence of left sided shunt. Neck: No jugular venous distention. Trachea midline. Respiratory: Clear to auscultation bilaterally, even, unlabored Cardiovascular: RRR, S1S2 Abdomen: Soft, non-tender, non-distended with normal bs x 4 Musculoskeletal: No clubbing, cyanosis or edema bilaterally. BLE weakness, muscle wasting, non ambulatory Skin: Skin color, texture, turgor normal. No rashes or lesions. Neurologic: AO x 3 Cranial nerves: II-XII intact, grossly non-focal. Power BUE 3/5, BLE 0/5 Data: Labs: No results for input(s): WBC, HGB, PLT in the last 72 hours. Recent Labs 10/24/21 0330 NA 140 K 3.9 CL 107 CO2 25 BUN 19* CREATININE 0.74 GLUCOSE 116* No results for input(s): AST, ALT, ALB, BILITOT, ALKPHOS in the last 72 hours. Assessment and Plan: Progressive thrombophilia on anticoagulation - Recurrent/chronic DVTs/ Pes/H/O IVC filter - Failed DOAC, converted to warfarin - Continue therapeutic Lovenox BID - Appreciate Vascular Input: no intervention at present - Consult Hematology for input regarding hypercoagulable state - care everywhere reveals retroperitoneal bleed 2/5/22, progressive liver lesions. 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 - Hydrocephalus management per Neurosurgery. At present patient does not have hydrocephalus on CT head done this morning. No Neurosurgery services available as inpatient in [facility]. Patient can follow up with Neurosurgery as outpatient and if ends up needing inpatient neurosurgery requirement then may need to be transferred to [facility]. Seizure history, unspecified - daughter requested that pt be restarted on seizure medication as she feels he is having seizures this morning. Neuro has done this 10/26/21. EEG was ordered. At some point, his seizure medications were stopped by OSH. - can switch to PO dose of Keppra at discharge. He was loaded with 1g 10/26/21 Stroke DC planning - 10/25/21: INR subtherapeutic, needs to be 2 10/26/21: daughter worried that pt is having seizures, possibly had a stroke. Neuro has been consulted. CT head, EEG, and MRI have been ordered. Pt was loaded with Keppra. DC pending results of scans. Please see my separate note from today for further details from previous hospital stay. Patient declined lunch or assistance with lunch. Follow up b/l foot wounds . Patient doesn't want dressings removed. Patient is awake and alert. Dressings intact. Offloading boots are on. Ulcer b/l PE, chart reviewed. Will get report from nursing. Continue wound care. [facility] Anticoagulation Management Service ([facility]) Inpatient Warfarin Consult HPI: Andrew Sifuentes is a 71 y.o. 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 Pt was referred by BRIAN Webber. Pt is on warfarin for DVT and has a goal INR 2.0 - 3.0 . Duration of therapy= indefinite. Reason for warfarin instead of DOAC: DOAC failure PCP: MONIKA STALEY MD S/sx of bleeding= none noted Interacting medications= therapeutic enoxaparin Labs: No results for input(s): HGB, HCT, PLT in the last 72 hours. Recent Labs 10/26/21 0319 INR 1.9* Date INR Dose 10/26 1.9 7.5mg 10/25 1.5 7.5mg 10/24 1.2 7.5mg 10/23 1.1 7.5 mg 10/22 1.1 5 mg 10/21 1.1 5 mg Assessment/Plan: 1. INR is subtherapeutic due to new start. Will continue increased dose of 7.5 mg today. 2. Will monitor for s/s of bleeding and drug interactions and adjust dose accordingly. 3. [facility] will manage while inpatient and sign off at discharge. Patient resides in a SNF. 4. Will provide warfarin education including [facility] warfarin booklet, if appropriate. Thank you for this consult Brionna Le, PharmD candidate Josie Gupta [facility], PharmD [facility] Consult Service is available daily [phone]. Please search for covering pharmacist name via [employer] or Groups --> Pharmacy --> Anti-Coagulation Consult Pharmacist (on 3rd page). If no response via [employer], please page [phone]. Moon daughter stated that any of patient's family can call and obtain an update on patient's status. Speech Language Pathology Facility/Department: [facility] MED SURG CLINICAL BEDSIDE SWALLOW EVALUATION NAME: Andrew Sifuentes : 1950 ADMISSION DATE: 10/21/2021 ADMITTING DIAGNOSIS: has Flank pain, acute; Night muscle spasms; Chronic fatigue; Hydrocephalus (HCC); Neuropathy; Erectile dysfunction; Fluid retention in tissues; Hyperlipidemia; Morbidly obese (HCC); Leg wound, left; DVT, lower extremity, recurrent, unspecified laterality (HCC); and Moderate malnutrition (HCC) on their problem list. ONSET DATE: 10/22/21 HPI: 71 year old man with PMHx: asthma, dementia, and hydrocephalus with multiple shunt revisions and PE intracranial shunt. Presented with from with concern for DVT. Significant labs on admit: Hb(10.9), Hct(33.6), WBC(11.6), BUN(18), D-dimer(1.51), CRP(33.5). Podiatry consulted and following for b/l foot wounds, recommending Prafo boots for off loading. Awaiting MRI to be ordered and results for noted retroperitoneal bleed 06/11/21, progressive liver lesions. At time of visit, patient sitting up in bed +flat affect and A+Ox1. Denies: GI distress, mechanical difficulty eating, and nausea. I Like to eat! , cannot recall what he ate for lunch. Consent obtained and NFPE completed. Post visit- discussed with RN, who reports that patient is eager to eat, easily distracted when eating and needs more attention and assistance with eating. Tolerated larger pills this morning with cream of wheat, and does better with a small bore straw. Additionally discussed with SIGNAL MAINTAINER HELPER, agreeable to assess tomorrow. Recent Chest Xray/CT of Chest: ( Date 10/21/21 ) FINDINGS/IMPRESSION: Support lines and tubes: Left IJ central line terminates in the right atrium. Heart/Mediastinum: Normal Lungs/Pleura: No focal consolidation. No pleural effusions. No pneumothorax. Date of Eval: 10/26/2021 Evaluating Therapist: NEVILLE Jones Current Diet level: Current Diet : Easy to chew Primary Complaint Patient Complaint: Pt without complaint. Decreased awareness of deficits. Oriented to self and daughter only. Pain: No current pain. Reason for Referral Andrew Sifuentes was referred for a bedside swallow evaluation to assess the efficiency of his swallow function, identify signs and symptoms of aspiration and make recommendations regarding safe dietary consistencies, effective compensatory strategies, and safe eating environment. Impression Dysphagia Impression : Recommend Easy to chew diet with thin liquids. No overt deficits this am with large bore straw, however pt may fatigue and run into deficits with progression of the day. Serial straw drinks WFL this am. Moderate oral residuals after swallow and reswallows. Liquids chasers need chew approx 50% of the time. Placement of liquids is helpful. Pt does well with medications whole in pudding. Recommend continue administration of same. Pt will benefit from assist with set up and intermittent cues for reswallow and liquids between bites. Treatment Plan Requires SIGNAL MAINTAINER HELPER Intervention: Yes Duration of Treatment: 2 weeks Recommended Diet and Intervention Recommended diet: Easy to Chew with thin liquids Recommended Form of Meds: Whole with puree Recommendations: Dysphagia treatment;Assistance with meals;Supervision with meals Compensatory Swallowing Strategies Assist with cup up/set up Cues for alternating liquids after solid to clear oral cavity Medications in whole in pudding Treatment/Goals Short-term Goals Goal 1: Pt will consume easy to chew diet with thin liquids without increased respiratory distress or overt dysphagia. Goal 2: Pt will use swallowing strategies to maximize safety of intake and oral clearing. General Chart Reviewed: Yes Behavior/Cognition: Alert;Confused;Requires cueing O2 Device: None (Room air) Communication Observation: Functional (Limited) Dentition: Adequate Patient Positioning: Upright in bed Baseline Vocal Quality: Normal Prior Dysphagia History: Yes, significant after stroke, hydrocephalus, intubation. Consistencies Administered: Easy to chew;Thin - cup;Thin - straw;Pureed Vision/Hearing Vision Vision: Impaired Vision Exceptions: Wears glasses at all times Hearing Hearing: Within functional limits Oral Motor Deficits Decreased oral sensation, slight deviation to the right of lingual (curve/slight) Oral Phase Dysfunction Oral Phase Oral Phase - Comment: Pt required assist with cutting up his foods. He attempted. If not cut up he will take and does take very large bites. Assist with meal recommended due to over feeding with moderate oral residuals. Liquid chaser is effect to clear residuals. Indicators of Pharyngeal Phase Dysfunction Pharyngeal Phase Pharyngeal Phase: +laryngeal elevation without overt deficits with function. Prognosis Individuals consulted Consulted and agree with results and recommendations: Patient;RN;Family member Family member consulted: mariam Mustafa Education Patient Education: Swallowing strategies. Patient Education Response: Verbalizes understanding;Needs reinforcement Therapy Time SIGNAL MAINTAINER HELPER Individual Minutes Time In: 826 Time Out: 852 Minutes: 26 NEVILLE Jones 10/26/2021 9:20 AM Comprehensive Nutrition Assessment Type and Reason for Visit: Initial (DT referral for wounds) Nutrition Recommendations/Plan: 1. Recommend to continue: Easy to Chew diet with Thin Liquids as currently ordered and safe for patient to participate in. Discussed with: RN, HOUSEKEEPING MANAGER, and SIGNAL MAINTAINER HELPER. SIGNAL MAINTAINER HELPER to assess tomorrow, best diet and liquid consistency for patient safety 2. Per MNT Protocol, added: Ensure Compact BID with meals to provide additional nutrition sources to allow patient opportunity to meet increased needs. Ensure Compact BID to provide: 440 kcal, 18 g protein, 480 mL fluid daily 3. Please record % meals and oral nutrition supplements consumed in flow-sheet for most accurate nutrient intake assessment. 4. RDN to continue to monitor weekly: fluid accumulation, weight, skin integrity, trends in lab values, tolerance of diet and ability to safely meet nutrition needs via PO and ONS, clinical status, discharge planning Malnutrition Assessment: Malnutrition Status: Moderate malnutrition (10/25/21 1559) Context: Chronic Illness Findings of the 6 clinical characteristics of malnutrition: Energy Intake: Unable to assess Weight Loss: Greater than 10% over 6 months (-24.7% weight loss x 6 months; -11.7% weight loss x2 months per EMR Review) Body Fat Loss: Mild body fat loss Buccal region,Orbital Muscle Mass Loss: Mild muscle mass loss Temples (temporalis),Clavicles (pectoralis & deltoids),Scapula (trapezius) Fluid Accumulation: Mild Extremities Telephone Exchange Operator Strength: Not Performed Nutrition Assessment: 71 year old man with PMHx: asthma, dementia, and hydrocephalus with multiple shunt revisions and PE intracranial shunt. Presented with from with concern for DVT. Significant labs on admit: Hb(10.9), Hct(33.6), WBC(11.6), BUN(18), D-dimer(1.51), CRP(33.5). Podiatry consulted and following for b/l foot wounds, recommending Prafo boots for off loading. Awaiting MRI to be ordered and results for noted retroperitoneal bleed 06/11/21, progressive liver lesions. At time of visit, patient sitting up in bed +flat affect and A+Ox1. Denies: GI distress, mechanical difficulty eating, and nausea. I Like to eat! , cannot recall what he ate for lunch. Consent obtained and NFPE completed. Post visit- discussed with RN, who reports that patient is eager to eat, easily distracted when eating and needs more attention and assistance with eating. Tolerated larger pills this morning with cream of wheat, and does better with a small bore straw. Additionally discussed with SIGNAL MAINTAINER HELPER, agreeable to assess tomorrow. Nutrition Related Findings: Jason score=11. +2 Non-pitting BLE edema noted. +bm 10/24/21 with bowel sounds. +Warfarin, bumex, lovenox. Labs reviewed INR(1.5) --> needs to be 2.0 Wound Type: Multiple,Pressure Injury,Unstageable,Deep Tissue Injury,Open Wounds (+ Left heel unstageable Pressure ulcer; + multiple skin level ulcers on bilateral feet. +Right 4th and 5th toes with arterial wounds.) Current Nutrition Intake & Therapies: Average Meal Intake: 26-50%,51-75% Average Supplements Intake: None Ordered ADULT DIET; Easy to Chew ADULT ORAL NUTRITION SUPPLEMENT; Dinner, Breakfast; Standard 4 oz Oral Supplement Anthropometric Measures: Height: 5' 7.01 (170.2 cm) [place] Body Weight (IBW): 148 lbs (67 kg) Admission Body Weight: 240 lb (108.9 kg) (stated 10/21/21) Current Body Weight: 205 lb 4 oz (93.1 kg) (10/25/21), 138.7 % IBW. Weight Source: Bed Scale Current BMI (kg/m2): 32.1 Usual Body Weight: 272 lb 11.3 oz (123.7 kg) (05/30/21 and 232.5# noted 08/14/21 at [facility] per EMR Review) % Weight Change (Calculated): -24.7 BMI Categories: Obese Class 1 (BMI 30.0-34.9) Estimated Daily Nutrient Needs: Energy Requirements Based On: Kcal/kg Weight Used for Energy Requirements: [place] (67.15 kg) Energy (kcal/day): 8041-7591 (27-32 kcal/kg IBW) --> increased need d/t wounds Weight Used for Protein Requirements: [place] (67.15 kg) Protein (g/day): 67-101 (1.0-1.5 g protein/kg IBW) Method Used for Fluid Requirements: Other (Comment) Fluid (ml/day): 4270-9642 mL daily or per MD Nutrition Diagnosis: Increased nutrient needs related to increase demand for energy/nutrients,impaired nutrient utilization as evidenced by wounds Moderate malnutrition,In context of chronic illness related to impaired nutrient utilization,increase demand for energy/nutrients as evidenced by weight loss greater than or equal to 10% in 6 months,mild muscle loss,mild loss of subcutaneous fat Nutrition Interventions: Food and/or Nutrient Delivery: Continue Current Diet,Start Oral Nutrition Supplement,Vitamin Supplement,Mineral Supplement Nutrition Education/Counseling: Education not indicated Coordination of Nutrition Care: Continue to monitor while inpatient Plan of Care discussed with: Patient, RN, HOUSEKEEPING MANAGER [place] Goals: Goals: other (specify) Specify Other Goals: Patient to meet at least 50% estimated needs via PO and ONS Nutrition Monitoring and Evaluation: Behavioral-Environmental Outcomes: None Identified Food/Nutrient Intake Outcomes: Food and Nutrient Intake,Supplement Intake,Diet Advancement/Tolerance Physical Signs/Symptoms Outcomes: Biochemical Data,Chewing or Swallowing,Meal Time Behavior,Hemodynamic Status,Fluid Status or Edema,Nutrition Focused Physical Findings,Skin,Weight,Nausea or Vomiting,GI Status Discharge Planning: Too soon to determine Puja Almanza RD, LD Contact: *[phone] Or Via [employer] Hematology/Oncology Attending Progress Note SUBJECTIVE: Patient seen and chart reviewed. No bleed or further thrombosis. More animated and conversational today. OBJECTIVE BP 120/70 Pulse 73 Temp 97.9 F (36.6 C) (Temporal) Resp 16 Ht 5' 7.01 (1.702 m) Wt 240 lb (108.9 kg) SpO2 96% BMI 37.58 kg/m Physical CONSTITUTIONAL: fatigued NECK: no stridor HEMATOLOGIC/LYMPHATICS: no cervical lymphadenopathy and no supraclavicular lymphadenopathy LUNGS: no increased work of breathing CARDIOVASCULAR: regular rate and rhythm with ectopic beatsregular rate and rhythm with ectopic beats ABDOMEN: softsoft, distended and tenderness noted diffusely NEUROLOGIC: Baseline OBS SKIN: no rashes EXT: Severe chronic stasis changes. Data Lab Results Component Value Date WBC 10.3 10/23/2021 HGB 11.6 (L) 10/23/2021 HCT 35.1 (L) 10/23/2021 MCV 85.9 10/23/2021 PLT 450 (H) 10/23/2021 No results found for: FERRITIN No results found for: IRON, TIBC, FERRITIN No results found for: [id number] No results found for: FOLATE PT 15.6 INR 1.5 CA 19 - 9 is 17 Protein S 138% Protein C 186% ASSESSMENT AND PLAN GI input appreciated. Patient continues with subtherapeutic INR. GI input appreciated. Discussed with patient's staff development coordinator. Will continue monitor. Total visit time > 35 minutes. [facility] Anticoagulation Management Service ([facility]) Inpatient Warfarin Consult HPI: Andrew Sifuenets is a 71 y.o. 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 Pt was referred by BRIAN Webber. Pt is on warfarin for DVT and has a goal INR 2.0 - 3.0 . Duration of therapy= indefinite. Reason for warfarin instead of DOAC: DOAC failure PCP: MONIKA STALEY MD S/sx of bleeding= none noted Interacting medications= therapeutic enoxaparin Labs: Recent Labs 10/23/21 0458 HGB 11.6* HCT 35.1* PLT 450* Recent Labs 10/25/21 0610 INR 1.5* Date INR Dose 10/25 1.5 7.5mg 6/20 1.2 7.5mg 10/23 1.1 7.5 mg 10/22 1.1 5 mg 10/21 1.1 5 mg Assessment/Plan: 1. INR is subtherapeutic due to new start. No significant INR increase yet, will continue increased dose of 7.5 mg today. 2. Will monitor for s/s of bleeding and drug interactions and adjust dose accordingly. 3. IRVIN will manage while inpatient and sign off at discharge. Patient resides in a SNF. 4. Will provide warfarin education including [facility] warfarin booklet, if appropriate. Thank you for this consult Brionna Le, PharmD candidate Josie Gupta RP, PharmD [facility] Consult Service is available daily [phone]. Please search for covering pharmacist name via [employer] or Groups --> Pharmacy --> Anti-Coagulation Consult Pharmacist (on 3rd page). If no response via [employer], please page [phone]. Progress Note 10/25/2021 9:36 AM Name: Andrew Sifuentes IP Day: 4 Admit Date: 10/21/2021 12:43 AM PCP: MONIKA STALEY MD Code Status: Full Code Subjective: No acute complaints Denies f/c, cp, sob, n/v/changes in BM Physical Examination: PHYSICAL EXAM: Vitals: BP 120/70 Pulse 73 Temp 97.9 F (36.6 C) (Temporal) Resp 16 Ht 5' 7 (1.702 m) Wt 240 lb (108.9 kg) SpO2 96% BMI 37.59 kg/m BMI Classification: Obese (BMI 30.0-39.9) General appearance: No apparent distress, appears stated age and cooperative. HEENT: Normal cephalic, atraumatic without obvious deformity. Conjunctivae/corneas clear. Neck: No jugular venous distention. Trachea midline. Respiratory: Clear to auscultation bilaterally, even, unlabored Cardiovascular: RRR, S1S2 Abdomen: Soft, non-tender, non-distended with normal bs x 4 Musculoskeletal: No clubbing, cyanosis or edema bilaterally. BLE weakness, muscle wasting, non ambulatory Skin: Skin color, texture, turgor normal. No rashes or lesions. Neurologic: AO x 3 Cranial nerves: II-XII intact, grossly non-focal. Data: Labs: Recent Labs 10/23/21 0458 WBC 10.3 HGB 11.6* PLT 450* Recent Labs 10/23/21 0458 10/24/21 0330 NA 142 140 K 3.9 3.9 CL 104 107 CO2 27 25 BUN 18* 19* CREATININE 0.82 0.74 GLUCOSE 109* 116* No results for input(s): AST, ALT, ALB, BILITOT, ALKPHOS in the last 72 hours. Assessment and Plan: Progressive thrombophilia on anticoagulation - Recurrent/chronic DVTs/ Pes/H/O IVC filter - Failed DOAC, converted to warfarin - Continue therapeutic Lovenox BID - Appreciate Vascular Input: no intervention at present - Consult Hematology for input regarding hypercoagulable state - care everywhere reveals retroperitoneal bleed 06/11/21, progressive liver lesions. Hem / onc ordered MRI, awaiting input of those results - Obtain Protein C&S, blood smear, ESR - Additional labs, diagnostics per Hem/Onc - CEA: 0.8 - Lupus anticoagulant, B2 glycoprotein I Igg AB, IgMAB, IGA: Pending - MRI abd pending - Continue Warfarin: pharmacy dosing - Daily INRs Chronic Wounds BLE Abnormal CARMELLA's see report - Appreciate wound care input - Consult to Podiatry recommends Prafo boots for off loading - Xray left foot:No OM noted, consider MRI if concern Hydrocephalus Chronic WOODARD's - Revised SUPERVISOR POST WAVE shunt DC planning - 10/25/21: INR subtherapeutic, needs to be 2 Progress Note 10/24/2021 3:24 PM Name: Andrew Sifuentes Day: 3 Admit Date: 10/21/2021 12:43 AM PCP: MONIKA STALEY MD Code Status: Full Code Subjective: No acute complaints Denies f/c, cp, sob, n/v/changes in BM Physical Examination: PHYSICAL EXAM: Vitals: BP 130/74 Pulse 81 Temp 97.3 F (36.3 C) (Temporal) Resp 14 Ht 5' 7 (1.702 m) Wt 240 lb (108.9 kg) SpO2 92% BMI 37.59 kg/m BMI Classification: Obese (BMI 30.0-39.9) General appearance: No apparent distress, appears stated age and cooperative. HEENT: Normal cephalic, atraumatic without obvious deformity. Conjunctivae/corneas clear. Neck: No jugular venous distention. Trachea midline. Respiratory: Clear to auscultation bilaterally, even, unlabored Cardiovascular: RRR, S1S2 Abdomen: Soft, non-tender, non-distended with normal bs x 4 Musculoskeletal: No clubbing, cyanosis or edema bilaterally. BLE weakness, muscle wasting, non ambulatory Skin: Skin color, texture, turgor normal. No rashes or lesions. Neurologic: AO x 3 Cranial nerves: II-XII intact, grossly non-focal. Data: Labs: Recent Labs 10/22/21 0404 10/23/21 0458 WBC 9.4 10.3 HGB 10.9* 11.6* PLT 369 450* Recent Labs 10/23/21 0458 10/24/21 0330 NA 142 140 K 3.9 3.9 CL 104 107 CO2 27 25 BUN 18* 19* CREATININE 0.82 0.74 GLUCOSE 109* 116* No results for input(s): AST, ALT, ALB, BILITOT, ALKPHOS in the last 72 hours. Assessment and Plan: Progressive thrombophilia on anticoagulation - Recurrent/chronic DVTs/ Pes/H/O IVC filter - Failed DOAC, converted to warfarin - Continue therapeutic Lovenox BID - Appreciate Vascular Input: no intervention at present - Consult Hematology for input regarding hypercoagulable state - care everywhere reveals retroperitoneal bleed 06/11/21, progressive liver lesions. Hem / onc ordered MRI, awaiting input of those results - Obtain Protein C&S, blood smear, ESR - Additional labs, diagnostics per Hem/Onc - CEA: 0.8 - Lupus anticoagulant, B2 glycoprotein I Igg AB, IgMAB, IGA: Pending - MRI abd pending - Continue Warfarin: pharmacy dosing - Daily INRs Chronic Wounds BLE Abnormal CARMELLA's see report - Appreciate wound care input - Consult to Podiatry recommends Prafo boots for off loading - Xray left foot:No OM noted, consider MRI if concern Hydrocephalus Chronic WOODARD's - Revised SUPERVISOR POST WAVE shunt DC planning - Can be DC'd back to ECF once MRI done if no acute findings, MRI is done, defer to hem / onc on plan for that, awaiting chest PA with fluoro Patient seen and chart reviewed. Consult dictated. Will ask GI to assess concerning the etiology of liver lesions. Will continue to monitor. [facility] Anticoagulation Management Service ([facility]) Inpatient Warfarin Consult HPI: Andrew Sifuentes is a 71 y.o. 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 Pt was referred by BRIAN Webber. Pt is on warfarin for DVT and has a goal INR 2.0 - 3.0 . Duration of therapy= indefinite. Reason for warfarin instead of DOAC: DOAC failure PCP: MONIKA STALEY MD S/sx of bleeding= none noted Interacting medications= therapeutic enoxaparin Labs: Recent Labs 10/22/21 0404 10/23/21 0458 HGB 10.9* 11.6* HCT 33.4* 35.1* PLT 369 450* Recent Labs 10/24/21 0330 INR 1.2* Date INR Dose 10/24 1.2 7.5mg 10/23 1.1 7.5 mg 10/22 1.1 5 mg 10/21 1.1 5 mg Assessment/Plan: 1. INR is subtherapeutic due to new start. No significant INR increase yet, will continue increased dose of 7.5 mg today. 2. Will monitor for s/s of bleeding and drug interactions and adjust dose accordingly. 3. IRVIN will manage while inpatient and sign off at discharge. Patient resides in a SNF. 4. Will provide warfarin education including [facility] warfarin booklet, if appropriate. Thank you for this consult Brionna Le, PharmD candidate Josie Gupta [facility], PharmD [facility] Consult Service is available daily [phone]. Please search for covering pharmacist name via E[employer]LLAGE or Groups --> Pharmacy --> Anti-Coagulation Consult Pharmacist (on 3rd page). If no response via X[employer]erve, please page [phone]. Follow up foot wounds Patient is more alert this morning. Waffle boots are on Ulcer left heel ulcer right foot Foot drop PE, chart reviewed. Patient relates that he does not walk at home. c ontinue wound care. Images from the original note were not included. Hospitalist Progress Note 10/23/2021 1:47 PM [phone]: Please page me ([phone]) or perfect serve me for patient care issues. [phone]: Please page IMS night Hospitalist for any issues. Subjective: Admit Date: 10/21/2021 PCP: MONIKA STALEY MD Room#: 146/1461 Admitting Synopsis: 71 y/o male presents from SNF for evaluation and treatment for DVT. Pt has a long history of multiple brain surgeries 2/2 hydrocephalus requiring multiple revisions starting in May 2021. Pt has known BLE DVTs and has been on DOAC but now presents with worsening DVT of the right leg. Pt also has PVD and has ulcers noted bilateral feet. Per the daughter, prior to May he was independent, live alone. Since May he has had PE's and required SNF and [facility] placement 2/2 hospital complications. Previous ICU admissions requiring intubations Assessment and Plan: Recurrent/chronic DVTs/H/O IVC filter - Failed DOAC - Continue therapeutic Lovenox BID - Appreciate Vascular Input: no intervention at present - Consult Hematology for input regarding hypercoagulable state - Obtain Protein C&S, blood smear, ESR - Additional labs, diagnostics per Hem/Onc - CEA: 0.8 - Lupus anticoagulant, B2 glycoprotein I Igg AB, IgMAB, IGA: Pending - MRI abd pending - Continue Warfarin: pharmacy dosing - Daily INRs H/O PE's - chronic OAC w Warfarin 2/2 failed DOAC Chronic Wounds BLE Abnormal CARMELLA's see report - Appreciate wound care input - Consult to Podiatry recommends Prafo boots for off loading - Xray left foot:No OM noted, consider MRI if concern Hydrocephalus Chronic WOODARD's - Revised SUPERVISOR POST WAVE shunt DC planning - Can be DC'd back to ECF once MRI done if no acute findings Interval History: No overnight issues. Denies chest pain, sob, abdominal pain, nausea, vomiting, diarrhea, constipation, fevers, or chills. Has chronic headaches since brain surgery. Doing well, daughter at bedside and updated. Objective: Vitals: BP 127/77 Pulse 74 Temp 97 F (36.1 C) (Temporal) Resp 16 Ht 5' 7 (1.702 m) Wt 240 lb (108.9 kg) SpO2 97% BMI 37.59 kg/m Pulse Ox: SpO2 Av % Min: 93 % Max: 97 % Supplemental O2: General appearance: in no apparent distress HEENT: Head: Normocephalic, no lesions, without obvious abnormality. Heart: regular rate and rhythm, S1, S2 normal, no murmur, click, rub or gallop Lungs: clear to auscultation bilaterally Abdomen: soft, non-tender; bowel sounds normal; no masses, no organomegaly Extremities: FLETCHER, weakness noted BLE Musculoskeletal: Muscle wasting of BLE, non-ambulatory Neurologic: no cranial nerve deficit and speech normal Psychiatric: appropriate, oriented to person, place, situation and year Skin: Skin color, texture, turgor normal. No rashes or lesions. ADULT DIET; Easy to Chew Patient Vitals for the past 96 hrs (Last 3 readings): Weight 10/21/21 0057 240 lb (108.9 kg) 24HR INTAKE/OUTPUT: No intake or output data in the 24 hours ending 10/23/21 1347 Past Medical History: Diagnosis Date ED (erectile dysfunction) Hemorrhoids Hydrocephalus, adult (HCC) Kidney stone Neuropathy SUPERVISOR POST WAVE (ventriculoperitoneal) shunt status Medications: sodium chloride warfarin 7.5 mg Oral Once baclofen 10 mg Oral TID bumetanide 2 mg Oral Daily potassium chloride 20 mEq Oral Daily sodium chloride flush 5-40 mL IntraVENous 2 times per day enoxaparin 1 mg/kg SubCUTAneous BID LABS: CBC: Recent Labs 10/21/210 10/22/21 0404 10/23/21 0458 WBC 11.6* 9.4 10.3 RBC 3.93* 3.87* 4.08* HGB 10.9* 10.9* 11.6* HCT 33.6* 33.4* 35.1* MCV 85.6 86.3 85.9 RDW 17.3* 17.1* 17.4* PLT 404 369 450* BMP: Recent Labs 10/21/2120910/22/21 0404 10/23/21 0458 NA 139 139 142 K 4.3 3.8 3.9 CL 105 106 104 CO2 29 26 27 BUN 18* 14 18* CREATININE 0.90 0.71 0.82 GLUCOSE 106* 110* 109* CALCIUM 9.1 8.9 9.6 ANIONGAP 6 7 10 LIVER PROFILE:No results for input(s): AST, ALT, BILITOT, ALKPHOS, LABALBU, PROT in the last 72 hours. PT/INR: Recent Labs 10/21/2120910/22/21 0744 10/23/21 0458 PROTIME 11.5 11.8 12.2* INR 1.1 1.1 1.1 CARDIAC ENZYMES: No results for input(s): TROPONINI in the last 72 hours. Procalcitonin: No results found for: PROCAL CT abd/pelvis wo: 10/22/21 IMPRESSION: 1. Single punctate nonobstructing calcified right renal calyceal calculus. 2. No evidence for other calcified collecting system calculi or obstruction. 3. No evidence of retroperitoneal hematoma. 4. 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 5. Multiple well-defined hypodense hepatic lesions many of which are too small to characterize most likely multiple small cysts. 6. Minimal sigmoid diverticulosis without evidence of diverticulitis. 7. No evidence of other mass, lymphadenopathy or inflammatory process. Report Dictated on MRI abd/pelvis pending -am labs, replace lytes prn -increase activity -DVT prophylaxis: [x] Lovenox: therapeutic [] Heparin [] SCDs [] Encourage ambulation [x] On Anticoagulation [] OAC/NOAC held [] ASA 325 per primary service GI Prophylaxis [] PPI/H2 [] tolerating diet Advance Directive: Full Code Discharge planning: TBD CAMILLA WEBBER CNP Division of Hospitalist Medicine Inpatient Medical Services PAGER: [phone] Nutrition rescreen completed. Pt referred to RD for foot ulcers. Occupational Therapy Facility/Department: [facility] Occupational Therapy Initial Assessment Name: Andrew Sifuentes : 1950 Date of Service: 10/23/2021 OT eval and treat orders received. Chart reviewed. Per notes pt from ECF, is Boaz lift at baseline, non-ambulatory, and requires assist for all ADLs. Will d/c OT orders. Elizabeth Gutierrez OT Physical Therapy Facility/Department: [facility] Physical Therapy Initial Assessment Name: Andrew Sifuentes : 1950 Date of Service: 10/23/2021 PT eval and treat orders received. Chart reviewed. Per notes pt from ECF, is Boaz lift at baseline, non-ambulatory. Will d/c PT orders. Lloyd Silva PT [facility] Anticoagulation Management Service ([facility]) Inpatient Warfarin Consult HPI: Andrew Sifuentes is a 71 y.o. 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 Pt was referred by BRIAN Webber. Pt is on warfarin for DVT and has a goal INR 2.0 - 3.0 . Duration of therapy= indefinite. Reason for warfarin instead of DOAC: DOAC failure PCP: MONIKA STALEY MD S/sx of bleeding= none noted Interacting medications= therapeutic enoxaparin Labs: Recent Labs 10/21/21 0210 10/22/21 0404 10/23/21 0458 HGB 10.9* 10.9* 11.6* HCT 33.6* 33.4* 35.1* PLT 404 369 450* Recent Labs 10/23/21 0458 INR 1.1 Date INR Dose 10/23 1.1 7.5 mg 10/22 1.1 5 mg 10/21 1.1 5 mg Assessment/Plan: 1. INR is subtherapeutic due to new start. No significant INR increase yet, will increase dose to warfarin 7.5 mg x 1 today. 2. Will monitor for s/s of bleeding and drug interactions and adjust dose accordingly. 3. [facility] will manage while inpatient and sign off at discharge. Patient resides in a SNF. 4. Will provide warfarin education including [facility] warfarin booklet, if appropriate. Thank you for this consult Lisa Forrest RPH, PharmD [facility] Consult Service is available daily [phone]. Please search for covering pharmacist name via ESILL[employer] or Groups --> Pharmacy --> Anti-Coagulation Consult Pharmacist (on 3rd page). If no response via ESILLAGE, please page [phone]. Department of Podiatry Attending Consult Note Reason for Consult: Wound care Requesting Physician: MD Oksana CHIEF COMPLAINT: Foot wounds HISTORY OF PRESENT ILLNESS: The patient is a 71 y.o. male with b/l foot wounds. Patient is awake , but not answering questions. Past Medical History: Diagnosis Date ED (erectile dysfunction) Hemorrhoids Hydrocephalus, adult (HCC) Kidney stone Neuropathy SUPERVISOR POST WAVE (ventriculoperitoneal) shunt status Past Surgical History: Procedure Laterality Date BRAIN SURGERY CHOLECYSTECTOMY COLONOSCOPY HERNIA REPAIR Current Medications: Current Facility-Administered Medications: warfarin (COUMADIN) tablet 5 mg, 5 mg, Oral, Once ipratropium-albuterol (DUONEB) nebulizer solution 1 ampule, 1 ampule, Inhalation, 4x Daily PRN baclofen (LIORESAL) tablet 10 mg, 10 mg, Oral, TID bumetanide (BUMEX) tablet 2 mg, 2 mg, Oral, Daily potassium chloride (KLOR-CON M) extended release tablet 20 mEq, 20 mEq, Oral, Daily sodium chloride flush 0.9 % injection 5-40 mL, 5-40 mL, IntraVENous, 2 times per day sodium chloride flush 0.9 % injection 5-40 mL, 5-40 mL, IntraVENous, PRN 0.9 % sodium chloride infusion, , IntraVENous, PRN potassium chloride (KLOR-CON M) extended release tablet 40 mEq, 40 mEq, Oral, PRN OR potassium bicarb-citric acid (EFFER-K) effervescent tablet 40 mEq, 40 mEq, Oral, PRN OR potassium chloride 10 mEq/100 mL IVPB (Peripheral Line), 10 mEq, IntraVENous, PRN ondansetron (ZOFRAN-ODT) disintegrating tablet 4 mg, 4 mg, Oral, Q8H PRN OR ondansetron (ZOFRAN) injection 4 mg, 4 mg, IntraVENous, Q6H PRN polyethylene glycol (GLYCOLAX) packet 17 g, 17 g, Oral, Daily PRN acetaminophen (TYLENOL) tablet 650 mg, 650 mg, Oral, Q6H PRN OR acetaminophen (TYLENOL) suppository 650 mg, 650 mg, Rectal, Q6H PRN aluminum & magnesium hydroxide-simethicone (MAALOX) 200-200-20 MG/5ML suspension 30 mL, 30 mL, Oral, Q6H PRN enoxaparin (LOVENOX) injection 105 mg, 1 mg/kg, SubCUTAneous, BID Allergies: Alcohol and Morphine Social History: TOBACCO: reports that he has quit smoking. His smoking use included cigars. He has a 10.00 pack-year smoking history. He has never used smokeless tobacco. ETOH: reports no history of alcohol use. DRUGS: reports no history of drug use. MARITAL STATUS: Patient currently lives Family History: Problem Relation Age of Onset Cancer Mother Heart Disease Father REVIEW OF SYSTEMS: 10 point ros neg other than HPI PHYSICAL EXAM: Vitals: BP 136/84 Pulse 76 Temp 97.2 F (36.2 C) (Temporal) Resp 16 Ht 5' 7 (1.702 m) Wt 240 lb (108.9 kg) SpO2 95% BMI 37.59 kg/m SKIN: Multiple foot wounds including dry eschar over left heel . No erythema. Dry eschar lateral right foot , dorsal left 4th and 5th toes and 5th metatarsal head. No erythema associated with any of the wounds. No drainage. Mild to moderate malodor left heel. NAILS: mycotic NEUROLOGIC: Unable to evaluate. VASCULAR: DP palpable right greater than left. MUSCULOSKELETAL: Unable to dorsiflex feet. IMPRESSION/RECOMMENDATIONS: Ulcer left heel and right midfoot and left toes. Foot drop b/l DVT PE, chart reviewed. Wounds are painted with betadine and covered with dry dressing. Recommend Prafo boots for offloading and foot drop. OT consulted. Will follow . Thank you. [facility] Respiratory Care Department Progress Note As part of the Respiratory Assessment Program (RAP), the following Respiratory Therapist evaluation has been completed, including a chart review and clinical/physical assessment. Respiratory Therapist RAP Evaluation Guideline Points 0 1 2 3 4 Points Strongly Consider History Factor No Pulmonary conditions Stable Pulmonary condition(s) Surgery or Intervention that may impact Pulmonary system (at risk) Surgery or Intervention that is impacting Pulmonary system Active Exacerbation of Pulmonary Condition 1 Respiratory Pattern Regular, RR= 12-18 CISNEROS or Increased RR= 19-24 Irregular, or RR= 25-30 SOB, talk in short sentences, or RR= 31-35 Severe SOB, accessory muscle use, one word answers, or RR>35 0 Aerosol Med(s), High Flow O2 Breath Sounds Clear Diminished in 1 lobe Diminished in ? 2 lobes Adventitious breath sounds Coarse crackles, Wheezes, or Diminished in >2 lobes 0 Aerosol Med(s), Bronchial Hygiene, Hyperinflation Cough & Sputum Strong cough, no secretion retention or production Weak cough, no secretion retention or production Weak cough, w/ production (less often than Q2hr), or secretion retention No cough, w/ secretion retention or production (less often than Q2hr) Significant secretion production (more often than Q2hr) or mucus plug 0 Aerosol Med(s), Bronchial Hygiene, Hyperinflation Level of Activity Ambulatory Ambulatory with Assist Up in chair or edge of bed (dangle) Non-ambulatory, bedridden with active ROM Completely paralyzed or without active ROM 0 Triage 5 0-2 Triage 4 3-5 Triage 3 6-10 Triage 2 11-14 Triage 1 ?15 Total 1 Triage Score = 5 TRIAGE SCORING SUGGESTED FREQUENCIES Aerosol Therapy Bronchial Hygiene Hyperinflation Triage Score Q4h & PRN 1 Q4hWA (QID) & PRN 2 TID & PRN 3 BID & PRN 4 PRN 5 Therapy(s) Indicated Yes/No Aerosol Medication Hyperinflation Bronchial Hygiene High Flow Oxygen Patient instructed and returned demonstration on use of MDI (with spacer, as appropriate) NO RT to enter/modify frequency of treatment order in EMR/EHR to match this RAP evaluation. Based on this RAP evaluation the following therapy is being initiated: Duoneb At the following frequency: QID PRN Comments: Thank you for involving Respiratory in the care of this patient, Chart reviewed. Progressive Thrombophilia on OAC. Agree with conversion to Warfarin. Review of Care Elsewhere reveals retroperitoneal bleed on 06/11/2021. Patient also noted to have progressive liver lesions for which MRI was recommended. Question of previous IVC filter placement. Will obtain CT of Abdomen and Pelvis in addition to MRI Liver. Will see patient Sunday AM 10/24/2021. Images from the original note were not included. Hospitalist Progress Note 10/22/2021 6:33 AM [phone]: Please page me ([phone]) or perfect serve me for patient care issues. [phone]: Please page [facility] Hospitalist for any issues. Subjective: Admit Date: 10/21/2021 PCP: MONIKA STALEY MD Room#: 146/1461 Admitting Synopsis: 71 y/o male presents from SNF for evaluation and treatment for DVT. Pt has a long history of multiple brain surgeries 2/2 hydrocephalus requiring multiple revisions starting in May 2021. Pt has known BLE DVTs and has been on DOAC but now presents with worsening DVT of the right leg. Pt also has PVD and has ulcers noted bilateral feet. Per the daughter, prior to May he was independent, live alone. Since May he has had PE's and required SNF and [facility] placement 2/2 hospital complications. Previous ICU admissions requiring intubations Assessment and Plan: Recurrent/chronic DVTs - Failed DOAC - Continue therapeutic Lovenox BID - Appreciate Vascular Input - Consult Hematology for input regarding hypercoagulable state - Obtain Protein C&S, blood smear, ESR - Additional labs, diagnostics per Hem/Onc - Start Warfarin H/O PE's - Will need chronic OAC - Initiated on Warfarin Chronic Wounds BLE Abnormal CARMELLA's see report - Appreciate wound care input - Consult to Podiatry for possible debridement - Xray left foot:No OM noted, consider MRI if concern Hydrocephalus - Revised SUPERVISOR POST WAVE shunt Interval History: No overnight issues. Denies chest pain, sob, abdominal pain, nausea, vomiting, diarrhea, constipation, fevers, or chills. Doing well without complaints Spoke to Daughter Melissa, questions answered. DW her about Podiatry and possible debridement of left heel Xrays reviewed with her Objective: Vitals: BP 115/78 Pulse 92 Temp 97.6 F (36.4 C) (Temporal) Resp 16 Ht 5' 7 (1.702 m) Wt 240 lb (108.9 kg) SpO2 92% BMI 37.59 kg/m Pulse Ox: SpO2 Av.9 % Min: 92 % Max: 97 % Supplemental O2: General appearance: in no apparent distress HEENT: Head: Normocephalic, no lesions, without obvious abnormality. Heart: regular rate and rhythm, S1, S2 normal, no murmur, click, rub or gallop Lungs: clear to auscultation bilaterally Abdomen: soft, non-tender; bowel sounds normal; no masses, no organomegaly Extremities: extremities normal, atraumatic, no cyanosis or edema and unable to kiln remover BLE, this is old Musculoskeletal: Muscle loss BLE Neurologic: no cranial nerve deficit and speech normal Psychiatric: appropriate, oriented to AAOX4 Skin: BLE with chronic venous stasis changes ADULT DIET; Easy to Chew Patient Vitals for the past 96 hrs (Last 3 readings): Weight 10/21/21 0057 240 lb (108.9 kg) 24HR INTAKE/OUTPUT: Intake/Output Summary (Last 24 hours) at 10/22/2021 0633 Last data filed at 10/21/2021 0928 Gross per 24 hour Intake 360 ml Output Net 360 ml Past Medical History: Diagnosis Date ED (erectile dysfunction) Hemorrhoids Hydrocephalus, adult (HCC) Kidney stone Neuropathy SUPERVISOR POST WAVE (ventriculoperitoneal) shunt status Medications: sodium chloride baclofen 10 mg Oral TID bumetanide 2 mg Oral Daily potassium chloride 20 mEq Oral Daily sodium chloride flush 5-40 mL IntraVENous 2 times per day enoxaparin 1 mg/kg SubCUTAneous BID ipratropium-albuterol 1 ampule Inhalation Q4H WA LABS: CBC: Recent Labs 10/21/21 0210 10/22/21 0404 WBC 11.6* 9.4 RBC 3.93* 3.87* HGB 10.9* 10.9* HCT 33.6* 33.4* MCV 85.6 86.3 RDW 17.3* 17.1* PLT 404 369 BMP: Recent Labs 10/21/21 0210 10/22/21 0404 NA 139 139 K 4.3 3.8 CL 105 106 CO2 29 26 BUN 18* 14 CREATININE 0.90 0.71 GLUCOSE 106* 110* CALCIUM 9.1 8.9 ANIONGAP 6 7 LIVER PROFILE:No results for input(s): AST, ALT, BILITOT, ALKPHOS, LABALBU, PROT in the last 72 hours. PT/INR: Recent Labs 10/21/21209 PROTIME 11.5 INR 1.1 CARDIAC ENZYMES: No results for input(s): TROPONINI in the last 72 hours. Procalcitonin: No results found for: PROCAL CT abd/pelvis:10/22/21 IMPRESSION: 1. Single punctate nonobstructing calcified right renal calyceal calculus. 2. No evidence for other calcified collecting system calculi or obstruction. 3. No evidence of retroperitoneal hematoma. 4. 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 5. Multiple well-defined hypodense hepatic lesions many of which are too small to characterize most likely multiple small cysts. 6. Minimal sigmoid diverticulosis without evidence of diverticulitis. 7. No evidence of other mass, lymphadenopathy or inflammatory process. Report Dictated on Ankle brachial index: 10/22/21 Conclusions 1. Right resting CARMELLA is 1.27. PVR waveforms appear normal at rest in the right ankle. 2. Right resting TBI is 0.96. This is within the normal range. PVR waveforms appear normal at rest in the right 1st toe, right 2nd toe, right 3rd toe, right 4th toe, and right 5th toe. 3. Left resting CARMELLA is 1.29. This is within the normal range. PVR waveforms appear normal at rest in the left ankle. 4. Left resting TBI is 0.48. These findings are abnormal. PVR waveforms appear mildly attenuated in the left 4th toe and left 5th toe. XR Calcaneus Left: 10/21/21 Impression: 1. Soft tissue fairly superficial ulceration along the posterior lateral aspect of the left calcaneus. 2. Nonspecific subtle surface irregularity along the posterior lateral calcaneus which could be related to enthesophytes. No definite acute osteomyelitis. If concern for early, superficial osteomyelitis, MRI or bone scan could be considered for more sensitive evaluation. 3. 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 Degenerative changes also seen along the os trigonum. Lower extremity US: 10/21/21 Conclusions 1. Study shows an acute vs subacute deep vein thrombosis noted in the right common femoral vein, right saphenofemoral junction, and right deep femoral vein. 2. Study shows an acute deep vein thrombosis noted in the right femoral vein, right popliteal vein, right peroneal veins, right posterior tibial veins, and right gastrocnemius veins. 3. Study shows an acute deep vein thrombosis noted in the left gastrocnemius veins. 4. Study shows a chronic deep vein thrombosis noted in the left popliteal vein. 5. There is no evidence of superficial vein thrombosis noted in the right lower extremity. 6. There is no evidence of superficial vein thrombosis noted in the left lower extremity. -am labs, replace lytes prn -increase activity -DVT prophylaxis: [x] Lovenox: therapeutic [] Heparin [] SCDs [] Encourage ambulation [x] On Anticoagulation/warfarin [] OAC/NOAC held [] ASA 325 per primary service GI Prophylaxis [] PPI/H2 [] tolerating diet Advance Directive: Full Code Discharge planning: TBD CAMILLA WEBBER CNP Division of Hospitalist Medicine Inpatient Medical Services PAGER: [phone] Images from the original note were not included. Hospitalist Progress Note 10/21/2021 5:31 PM [phone]: Please page me ([phone]) or perfect serve me for patient care issues. [phone]: Please page [facility] Hospitalist for any issues. Subjective: Admit Date: 10/21/2021 PCP: MONIKA STALEY MD Room#: [id number] Admitting Synopsis: 71 y/o male presents from SNF for evaluation and treatment for DVT. Pt has a long history of multiple brain surgeries 2/2 hydrocephalus requiring multiple revisions starting in May 2021. Pt has known BLE DVTs and has been on DOAC but now presents with worsening DVT of the right leg. Pt also has PVD and has ulcers noted bilateral feet. Per the daughter, prior to May he was independent, live alone. Since May he has had PE's and required SNF and [facility] placement 2/2 hospital complications. Previous ICU admissions requiring intubations Assessment and Plan: Recurrent DVTs - Now with recurrent and progressed DVTs - Failed DOAC - Continue therapeutic Lovenox BID - Appreciate Vascular Input - Will consult Hematology for input regarding hypercoagulable state - Will obtain Protein C&S, blood smear, ESR - Will start Warfarin Known PE's - Will need chronic OAC Hydrocephalus - Revised SUPERVISOR POST WAVE shunt Interval History: No overnight issues. Denies chest pain, sob, abdominal pain, nausea, vomiting, diarrhea, constipation, fevers, or chills. Spoke to the daughter Moon at length about her father's situation. POC reviewed with her. Objective: Vitals: BP 136/86 Pulse 94 Temp 97.1 F (36.2 C) (Temporal) Resp 18 Ht 5' 7 (1.702 m) Wt 240 lb (108.9 kg) SpO2 97% BMI 37.59 kg/m Pulse Ox: SpO2 Av.8 % Min: 92 % Max: 97 % Supplemental O2: General appearance: in no apparent distress HEENT: Head: Normocephalic, no lesions, without obvious abnormality. Missing teeth, poor dentition Heart: regular rate and rhythm, S1, S2 normal, no murmur, click, rub or gallop Lungs: clear to auscultation bilaterally Abdomen: soft, non-tender; bowel sounds normal; no masses, no organomegaly Extremities: Bilaterla feet with dressing Musculoskeletal: FLETCHER, BLE with muscle loss Neurologic: speech normal Psychiatric: appropriate, oriented to X3 Skin: Skin color, texture, turgor normal. No rashes or lesions. ADULT DIET; Easy to Chew Patient Vitals for the past 96 hrs (Last 3 readings): Weight 10/21/21 0057 240 lb (108.9 kg) 24HR INTAKE/OUTPUT: Intake/Output Summary (Last 24 hours) at 10/21/2021 1731 Last data filed at 10/21/2021 0928 Gross per 24 hour Intake 360 ml Output Net 360 ml Past Medical History: Diagnosis Date ED (erectile dysfunction) Hemorrhoids Hydrocephalus, adult (HCC) Kidney stone Neuropathy SUPERVISOR POST WAVE (ventriculoperitoneal) shunt status Medications: sodium chloride baclofen 10 mg Oral TID bumetanide 2 mg Oral Daily potassium chloride 20 mEq Oral Daily sodium chloride flush 5-40 mL IntraVENous 2 times per day enoxaparin 1 mg/kg SubCUTAneous BID ipratropium-albuterol 1 ampule Inhalation Q4H WA LABS: CBC: Recent Labs 10/21/21209 WBC 11.6* RBC 3.93* HGB 10.9* HCT 33.6* MCV 85.6 RDW 17.3* PLT 404 BMP: Recent Labs 10/21/21209 NA 139 K 4.3 CL 105 CO2 29 BUN 18* CREATININE 0.90 GLUCOSE 106* CALCIUM 9.1 ANIONGAP 6 LIVER PROFILE:No results for input(s): AST, ALT, BILITOT, ALKPHOS, LABALBU, PROT in the last 72 hours. PT/INR: Recent Labs 10/21/21209 PROTIME 11.5 INR 1.1 CARDIAC ENZYMES: No results for input(s): TROPONINI in the last 72 hours. Procalcitonin: No results found for: PROCAL -am labs, replace lytes prn -increase activity -DVT prophylaxis: [x] Lovenox Therapeutic dosing [] Heparin [] SCDs [] Encourage ambulation [] On Anticoagulation [] OAC/NOAC held [] ASA 325 per primary service GI Prophylaxis [] PPI/H2 [] tolerating diet Advance Directive: Full Code Discharge planning: TBD CAMILLA WEBBER CNP Division of Hospitalist Medicine Inpatient Medical Services PAGER: [phone] Family member Triny, sister to patient, called back to the hospital stating that she was returning a call from a provider. Her phone number is [phone] to speak with whomever was attempting to reach out to her. documented in this encounter [employer] Work Phone: 10-17-2021 Miscellaneous Notes Mr. Sifuentes missed his hospital stay follow-up appointment w. Dr. Lim today. Called to Reschedule. Could not get through. Subscriber you have dialed not in service - was the automated voice mail. Unable to leave . No other phone# available. Ramya Negro Endodontist [facility] documented in this encounter [facility] 08-19-2021 Note [facility] 08-19-2021 Note [facility] 08-18-2021 Note [facility] 08-18-2021 Note [facility] 08-17-2021 Note [facility] 08-17-2021 Note [facility] 08-16-2021 Note [facility] 08-16-2021 Note HNO ID: [id number] Author: Katt Kelsey DO Service: Hospital Medicine Author Type: Physician Type: Plan of Care Filed: 08/16/2021 12:26 PM Note Text: Spoke with RN that line is a PICC. Katt Kelsey DO 08/16/2021 12:26 PM [facility] 08-16-2021 Note [facility] 08-16-2021 Note [facility] 08-15-2021 Note [facility] 08-15-2021 Note [facility] 08-15-2021 Note [facility] 08-14-2021 Note [facility] 08-14-2021 Note [facility] 08-13-2021 Note [facility] 08-13-2021 Note [facility] 08-13-2021 Note [facility] 08-13-2021 Note HNO ID: [id number] Author: Interface Note Service: ? Author Type: ? Type: Progress Notes Filed: 08/13/2021 3:10 AM Note Text: Epic Scheduled Downtime: 08/13/2021 1:08:47 AM to 08/13/2021 2:53:47 AM [facility] 08-12-2021 Note [facility] 08-12-2021 Note [facility] 08-12-2021 Note [facility] 08-11-2021 Note [facility] 08[facility]11-2021 Note [facility] 08[facility]11-2021 Note [facility] 08-11-2021 Note [facility] 08-11-2021 Note [facility] 08-11-2021 Note [facility] 08-10-2021 Note [facility] 08-10-2021 Note [facility] 08-10-2021 Note [facility] 08-10-2021 Note [facility] 08-09-2021 Note HNO ID: [id number] Author: Shannon Brooks RN Service: ? Author Type: Registered Nurse Type: Nursing Progress Note Filed: 08/09/2021 7:33 PM Note Text: Report called to unit [facility] 08-09-2021 Note [facility] 08-09-2021 Note [facility] 08-09-2021 Note [facility] 08-08-2021 Note [facility] 08[facility]08-2021 Note [facility] 08-08-2021 Note [facility] 08-07-2021 Note [facility] 08[facility]07-2021 Note [facility] 08[facility]07-2021 Note [facility] 08-07-2021 Note [facility] 08-07-2021 Note [facility] 08-06-2021 Note [facility] 08-06-2021 Note [facility] 08[facility]06-2021 Note [facility] 08-05-2021 Note [facility] 08[facility]05-2021 Note [facility] 08-05-2021 Note [facility] 08-04-2021 Note [facility] 08-04-2021 Note [facility] 08-04-2021 Note [facility] 08-03-2021 Note [facility] 08-03-2021 Note [facility] 08[facility]03-2021 Note [facility] 08-02-2021 Note [facility] 08-02-2021 Note [facility] 08[facility]02-2021 Note [facility] 08-01-2021 Note [facility] 08-01-2021 Note [facility] 08-01-2021 Note [facility] 08-01-2021 Note [facility] 07-31-2021 Note [facility] 07-31-2021 Note [facility] 07-30-2021 Note [facility] 07-30-2021 Note [facility] 07-30-2021 Note [facility] 07-29-2021 Note [facility] 07-29-2021 Note [facility] 07-29-2021 Note [facility] 07-28-2021 Note [facility] 07[facility]28-2021 Note [facility] 07[facility]28-2021 Note [facility] 07-27-2021 Note [facility] 07[facility]27-2021 Note [facility] 07[facility]27-2021 Note [facility] 07-26-2021 Note [facility] 07-26-2021 Note [facility] 07-26-2021 Note [facility] 07[facility]26-2021 Note [facility] 07-26-2021 Note [facility] 07-25-2021 Note [facility] 07-25-2021 Note [facility] 07-25-2021 Note [facility] 07[facility]25-2021 Note [facility] 07-24-2021 Note [facility] 07-24-2021 Note [facility] 07-24-2021 Note [facility] 07-23-2021 Note [facility] 07-23-2021 Note [facility] 07-23-2021 Note [facility] 07-23-2021 Note [facility] 07-23-2021 Note [facility] 07-22-2021 Note [facility] 07-22-2021 Note [facility] 07-22-2021 Note [facility] 07-21-2021 Note [facility] 07-21-2021 Note [facility] 07-21-2021 Note [facility] 07-21-2021 History of Past i llness Narrative Problem Noted Date Resolved Date Fever 07/21/2021 07/28/2021 Last Assessment & Plan: See Ventriculitis. Shock circulatory 06/15/2021 06/17/2021 Hypotension 06/15/2021 06/17/2021 Last Assessment & Plan: 06/08 medication induced 500 cc bolus Low dose levophed for MAP >65 off 06/16 Resolved Sepsis 06/14/2021 10/16/2021 Last Assessment & Plan: Assessment: Patient with history of fever, elevated WBC, RP hematoma SUPERVISOR POST WAVE shunt tip grew anaerobic gram positive cocci 06/08/2021 PLAN: SUPERVISOR POST WAVE shunt tip sent to [facility] main, awaiting cx Continue Meropenem per I.D Sputum cx growing yeast, add antifungal? Non-sustained ventricular tachycardia 06/14/2021 06/17/2021 Last Assessment & Plan: Assessment: Hypokalemia and hypophosphatemia noted TAMIKO only 22 EKG unchanged since the last 06/11/2021 PLAN: Replace potassium and phosphorus Rpt TAMIKO Continue to monitor Contact dermatitis 06/06/2021 06/14/2021 Last Assessment & Plan: Assessment: Maculopapular nonblanching erythematous rash to back PLAN: -Benadryl, Kenalog, coral, desenex -Turn and reposition q 2hrs -wound c/s for B/L heel ulcers -rash improving Cerebral edema 06/01/2021 06/14/2021 Shunt malfunction 06/01/2021 06/14/2021 DVT prophylaxis 05/31/2021 06/14/2021 Last Assessment & Plan: PLAN: -Heparin SQ Obstructive hydrocephalus 05/29/20212021 Last Assessment & Plan: Assessment: Obstructive Hydrocephalus -previous VA shunt in the R axilla,vascular c/s for removal - MRI brain 06/02 showed small focus of acute infarction in the left subinsular white matter, mild interval increase in lateral and third ventricles compared to 06/01; 1 cm possible meningioma, and transependymal edema - Repeat CTH showed improving Hydrocephalus - repeat CTH 06/09 stable - 06/08 VA shunt removal and VPS shunt placed- EVD removed 06/10 PLAN: - following CSF studies; 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 for CORNER FORMER infection at this time - ID following- Continue antibiotics: Meropenem -CSF leak from EVD site, appreciate NSGY recs> stat repeat CTH on 06/07 d/t concern for CSF leak, cephalematoma, CTH unremarkable -Tolerating TF - SBT WTE - PICC line placed documented as of this encounter (statuses as of 10/17/2021) [facility]03-17-2022 [facility]03-16-2022 [facility]03-16-2022 [facility]03-16-2022 Note [facility]03-16-2022 [facility] 07-19-2021 [facility]03-15-2022 [facility]03[facility]15-2022 [facility]03-14-2022 [facility]03-14-2022 [facility]03-13-2022 [facility]03[facility]13-2022 [facility]03-12-2022 Note [facility]03-12-2022 [facility] 07-15-2021 [facility]03-11-2022 [facility]03-10-2022 [facility]03-10-2022 [facility]03-10-2022 [facility]03-09-2022 [facility]03[facility]09-2022 [facility]03-09-2022 Note [facility]03-09-2022 [facility] 07-12-2021 [facility]03-08-2022 [facility]03-07-2022 [facility]03-07-2022 [facility]03-07-2022 [facility]03-07-2022 [facility]03[facility]06-2022 [facility]03-06-2022 Note [facility]03-05-2022 [facility] 07-09-2021 [facility]03-05-2022 [facility]03-05-2022 [facility]03-05-2022 NoteHNO ID: [id number] Author: Lizette Valderrama RN Service: Nursing Author Type: Registered Nurse Type: Nursing Progress Note Filed: 07/09/2021 1:41 AM Note Text: Report called to [facility]03-04-2022 NoteHNO ID: [id number] Author: Lizette Valderrama RN Service: Nursing Author Type: Registered Nurse Type: Nursing Progress Note Filed: 07/08/2021 8:57 PM Note Text: [address] 2049 back to PACU [facility]03-04-2022 NoteHNO ID: [id number] Author: Sukhi Chery APRN.CNP Service: ? Author Type: Nurse Practitioner Type: Progress Notes Filed: 07/09/2021 6:46 PM Note Text: Connected Care Unit Progress Note Patient Name: Andrew Sifuentes Patient Facility: [facility] Admit Date 06/28/2021 Level of Care: Skilled SNF Attending: Amy Beltran M.D. Service Date: 07/08/2021 Code Status: Full Code Chief Complaint: Evaluation regarding neurological changes and unplanned corpak removal. ASSESSMENT AND PLAN (J96.01) Acute respiratory failure with hypoxia (HCC) (primary encounter diagnosis) - Per nursing; patient was found with corpak feeding tube nearly removed with continuous tubefeed still running; unclear for how long tubefeed was running overnight with corpak in this position; nursing had removed corpak entirely when found as they said it was mostly already removed - Lungsounds are rhonchus and wheezy today; concerning for potential aspiration - Continue on Duonebs - Edema still present and relatively unchanged from previous encounter (G91.1) Obstructive hydrocephalus (HCC) (Z98.2) History of brain shunt - AANDOx1 and obtunded - Dr. Lim with Neurosurgery Following - Concerning changes noted in neurological exam; pupils are larger and with minimal reaction to light, very sluggish (I26.02) Acute saddle pulmonary embolism with acute core pulmonale (HCC) - Continue on Eliquis - Breath sounds adventitious today; remains on room air (A41.9, R65.20) Sepsis with acute organ dysfunction, due to unspecified organism, unspecified type, unspecified whether septic shock present ([facility]) - Dr. Mckenzie with ID Following - Continue on Vancomycin - PICC Line Intact - No fevers or chills per patient or staff (R53.81) Debility - Certify therapies - Maintain high falls risk precautions - pt/staff verbalize understanding validated via teach back - Monitor safety awareness Appointments for Next 60 Days Date Time Provider Location Dept Phone 07/21/2021 11:00 AM NICOLE LIM [phone] HPI: (Per Dr. Beltran) Andrew Sifuentes is being seen today for fpc facility (SNF) admission AND management of weakness, tube feed, infected retroperitoneal infection and seizure. ? This is a 71 year old male who presents from [facility] with primary admitting diagnosis of Seizure, enteral feeding via NG tube, infected retroperitoneal hematoma and saddle PE. Past medical history is notable for Obstructive hydrocephalus, venous insufficiency, asthma, and HTN. History obtained from medical record review as well as PATIENT. ? Per documentation, pt presented with a fall and altered mental status. 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 Tip of SUPERVISOR POST WAVE shunt was found to be in the right axillary region. Patient was intubated and underwent EVD (external ventricular drain) .06/07 noted to have Frontal cephalematoma around EVD site, downward gazing, hypertensive, and had shunt revision, VPS placement. CT abd showing infected hematoma left retroperitoneum>?GS aware and antibiotics x 2 weeks recommended; TMAX 100.4 with slight increase WBC; gen surgery was consulted and had IR guided drainage.patient was started on broad spectrum antibiotics and then kept on vancomycin for 6 weeks per INFECTIOUS DISEASE for shunt infection, growing staph saccrolyticus. He was transferred to the floor 06/14/2021 on 2L NC. 06/16/2021 developed acute hypoxic respiratory failure found secondary to saddle PE. He was intubated again in Intensive Care Unit. DVT USS showed b/l DVTs. Started on heparin drip which was changed to Apixaban. Patient transferred to floor now remains on 2 lt NC and tube feeds and full liquid diet. ? Highest Readmission Risk Score 43. 07/08/2021 Update Patient visualized sitting up in bed. Patient had corpak partially removed over night with tubefeed still being administered for an undetermined amount of time. His lung sounds are rhonchus and wheezy. Additionally, there has been some concerning changes to his neurological status as his pupils are larger and very sluggish with minimal reaction to light. He is also much more obtunded and slow to respond. Ordered to transfer to [facility] ED for evaluation of neurological and pulmonary changes. PAST MEDICAL HISTORY Diagnosis Date - Acute saddle pulmonary embolism with acute cor pulmonale (HCC) 06/15/2021 - Asthma - Contact dermatitis 06/06/2021 - Intracranial shunt - PE (pulmonary embolism) - Primary hypertension 05/31/2021 - Status epilepticus (HCC) 05/31/2021 SUBJECTIVE: Review of Systems Unable to perform ROS: Mental status change Musculoskeletal: Positive for gait problem. Neurological: Positive for weakness. Psychiatric/Behavioral: Positive for confusion. No reports of falls/injuries, changes in co (more content not included)... [facility]03-04-2022 [facility]03-04-2022 [facility]03-02-2022 NoteHNO ID: [id number] Author: Sukhi Chery APRN.VICTORIANO Service: ? Author Type: Nurse Practitioner Type: Progress Notes Filed: 07/09/2021 6:20 PM Note Text: Connected Care Unit Progress Note Patient Name: Andrew Sifuentes Patient Facility: [facility] Admit Date 06/28/2021 Level of Care: Skilled SNF Attending: Amy Beltran M.D. Service Date: 07/06/2021 Code Status: Full Code Chief Complaint: Evaluation regarding ongoing respiratory failure. ASSESSMENT AND PLAN (J96.01) Acute respiratory failure with hypoxia (HCC) (primary encounter diagnosis) - Remains on room air - cxr shows perihilar atelectasis - Deep breathing exercises - Continue on Duonebs - Edema still present and relatively unchanged from previous encounter (G91.1) Obstructive hydrocephalus (HCC) (Z98.2) History of brain shunt - AANDOx2 and lethargic - Dr. Lim with Neurosurgery Following - Focused neuro exams with encounters (A41.9, R65.20) Sepsis with acute organ dysfunction, due to unspecified organism, unspecified type, unspecified whether septic shock present (HCC) - Dr. Mckenzie with ID Following - Continue on Vancomycin - PICC Line Intact - No fevers or chills per patient or staff (R53.81) Debility - Certify therapies - Maintain high falls risk precautions - pt/staff verbalize understanding validated via teach back - Monitor safety awareness Appointments for Next 60 Days Date Time Provider Location Dept Phone 07/21/2021 11:00 AM CHANDLERNICOLE [phone] HPI: (Per Dr. Beltran) Andrew Sifuentes is being seen today for fpc facility (SNF) admission AND management of weakness, tube feed, infected retroperitoneal infection and seizure. ? This is a 71 year old male who presents from [facility] with primary admitting diagnosis of Seizure, enteral feeding via NG tube, infected retroperitoneal hematoma and saddle PE. Past medical history is notable for Obstructive hydrocephalus, venous insufficiency, asthma, and HTN. History obtained from medical record review as well as PATIENT. ? Per documentation, pt presented with a fall and altered mental status. 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 Tip of SUPERVISOR POST WAVE shunt was found to be in the right axillary region. Patient was intubated and underwent EVD (external ventricular drain) .06/07 noted to have Frontal cephalematoma around EVD site, downward gazing, hypertensive, and had shunt revision, VPS placement. CT abd showing infected hematoma left retroperitoneum>?GS aware and antibiotics x 2 weeks recommended; TMAX 100.4 with slight increase WBC; gen surgery was consulted and had IR guided drainage.patient was started on broad spectrum antibiotics and then kept on vancomycin for 6 weeks per INFECTIOUS DISEASE for shunt infection, growing staph saccrolyticus. He was transferred to the floor 06/14/2021 on 2L NC. 06/16/2021 developed acute hypoxic respiratory failure found secondary to saddle PE. He was intubated again in Intensive Care Unit. DVT USS showed b/l DVTs. Started on heparin drip which was changed to Apixaban. Patient transferred to floor now remains on 2 lt NC and tube feeds and full liquid diet. ? Highest Readmission Risk Score 43. 07/06/2021 Update Patient visualized sitting up in bed. Recent cxr revealed left perihilar atelectasis. Encourage deep breathing exercises and continue duonebs. Patient otherwise unchanged from previous encounter. PAST MEDICAL HISTORY Diagnosis Date - Acute saddle pulmonary embolism with acute cor pulmonale (HCC) 06/15/2021 - Asthma - Contact dermatitis 06/06/2021 - Intracranial shunt - PE (pulmonary embolism) - Primary hypertension 05/31/2021 - Status epilepticus (HCC) 05/31/2021 SUBJECTIVE: Review of Systems Unable to perform ROS: Mental status change Musculoskeletal: Positive for gait problem. Neurological: Positive for weakness. Psychiatric/Behavioral: Positive for confusion. No reports of falls/injuries, changes in cognition/behaviors, or any uncontrolled pain exacerbations. Medications: Medications listed in Epic during SNF admission may not be current. Refer to facility record. Patient records, current medications, most recent labs, family/social history (unchanged) Reviewed. Refer to facility records. OBJECTIVE: Vital Signs: BP 144/88 Pulse 98 Temp 36.5 ?C (97.7 ?F) Resp 16 Ht 182.9 cm (6') Wt 113.3 kg (249 lb 12.8 oz) SpO2 95% BMI 33.88 kg/m? Physical Exam: Physical Exam Vitals reviewed. Constitutional: General: He is not in acute distress. Appearance: He is obese. He is not ill-appearing or toxic-appearing. HENT: Head: Normocephalic. Right Ear: External ear normal. Left Ear: External ear normal. Nose: Nose normal. Mouth/Throat: Mouth: Mucous membranes are dry. Pharynx: Oropharynx is clear. (more content not included)...[facility]02-28-2022 NoteHNO ID: [id number] Author: Sukhi Chery APRN.VICTORIANO Service: ? Author Type: Nurse Practitioner Type: Progress Notes Filed: 07/09/2021 6:07 PM Note Text: Connected Care Unit Progress Note Patient Name: Andrew Sifuentes Patient Facility: [facility] Admit Date 06/28/2021 Level of Care: Skilled SNF Attending: Amy Beltran M.D. Service Date: 07/04/2021 Code Status: Full Code Chief Complaint: Evaluation regarding ongoing respiratory failure. ASSESSMENT AND PLAN (J96.01) Acute respiratory failure with hypoxia (HCC) (primary encounter diagnosis) - Remains on room air, however, oxygen saturation somewhat lower than previous encounter; now 93 - 94% - Continue on Duonebs - cxr ordered - Edema increased from previous encounter; patient on furosemide; add metolazone for three days; JOEY wraps ordered (G91.1) Obstructive hydrocephalus (HCC) (Z98.2) History of brain shunt - Dr. Lim with Neurosurgery Following - Focused neuro exams with encounters (A41.9, R65.20) Sepsis with acute organ dysfunction, due to unspecified organism, unspecified type, unspecified whether septic shock present (HCC) - Dr. Mckenzie with ID Following - Continue on Vancomycin; recent trough was 30 but nursing notes it was drawn by mass spec as vancomycin was being infused; reordered trough - PICC Line Intact - No fevers or chills per patient or staff (R53.81) Debility - Certify therapies - Maintain high falls risk precautions - pt/staff verbalize understanding validated via teach back - Monitor safety awareness Appointments for Next 60 Days Date Time Provider Location Dept Phone 07/21/2021 11:00 AM NICOLE LIM [phone] HPI: (Per Dr. Beltran) Andrew Sifuentes is being seen today for fpc facility (SNF) admission AND management of weakness, tube feed, infected retroperitoneal infection and seizure. ? This is a 71 year old male who presents from [facility] with primary admitting diagnosis of Seizure, enteral feeding via NG tube, infected retroperitoneal hematoma and saddle PE. Past medical history is notable for Obstructive hydrocephalus, venous insufficiency, asthma, and HTN. History obtained from medical record review as well as PATIENT. ? Per documentation, pt presented with a fall and altered mental status. 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 Tip of SUPERVISOR POST WAVE shunt was found to be in the right axillary region. Patient was intubated and underwent EVD (external ventricular drain) .06/07 noted to have Frontal cephalematoma around EVD site, downward gazing, hypertensive, and had shunt revision, VPS placement. CT abd showing infected hematoma left retroperitoneum>?GS aware and antibiotics x 2 weeks recommended; TMAX 100.4 with slight increase WBC; gen surgery was consulted and had IR guided drainage.patient was started on broad spectrum antibiotics and then kept on vancomycin for 6 weeks per INFECTIOUS DISEASE for shunt infection, growing staph saccrolyticus. He was transferred to the floor 06/14/2021 on 2L NC. 06/16/2021 developed acute hypoxic respiratory failure found secondary to saddle PE. He was intubated again in Intensive Care Unit. DVT USS showed b/l DVTs. Started on heparin drip which was changed to Apixaban. Patient transferred to floor now remains on 2 lt NC and tube feeds and full liquid diet. ? Highest Readmission Risk Score 43. 07/04/2021 Update Patient visualized sitting up in bed. Upon exam today, he appears neurologically the same but appears somewhat more labored in his breathing. His oxygen saturation is lower but he remains on room air. He denies any shortness of breath, chest pain, or chest tightness. PAST MEDICAL HISTORY Diagnosis Date - Acute saddle pulmonary embolism with acute cor pulmonale (HCC) 06/15/2021 - Asthma - Contact dermatitis 06/06/2021 - Intracranial shunt - PE (pulmonary embolism) - Primary hypertension 05/31/2021 - Status epilepticus (HCC) 05/31/2021 SUBJECTIVE: Review of Systems Unable to perform ROS: Mental status change Musculoskeletal: Positive for gait problem. Neurological: Positive for weakness. Psychiatric/Behavioral: Positive for confusion. No reports of falls/injuries, changes in cognition/behaviors, or any uncontrolled pain exacerbations. Medications: Medications listed in [facility] during SNF admission may not be current. Refer to facility record. Patient records, current medications, most recent labs, family/social history (unchanged) Reviewed. Refer to facility records. OBJECTIVE: Labs/diagnostics: 07/04/2021 Glucose=91 Vv=171 K=3.8 Vn=522 CO2=24 BUN=14 Creatinine=0.5 ZQA=519 Ca=9.0 Protein,Total=6.7 Albumin=3.6 RjgXutb=242 AST=15 ALT=21 Bilirubin,Totall=0.5 WBC=10.7 RBC=4.04 Hgb=10.9 Hct=35.3 Rfggwpyu=217 VancomycinTr (more content not included)...[facility]02-24-2022 NoteHNO ID: [id number] Author: Sukhi Chery APRN.VICTORIANO Service: ? Author Type: Nurse Practitioner Type: Progress Notes Filed: 07/09/2021 5:43 PM Note Text: Connected Care Unit Progress Note Patient Name: Andrew Sifuentes Patient Facility: [facility] Admit Date 06/28/2021 Level of Care: Skilled SNF Attending: Amy Beltran M.D. Service Date: 06/30/2021 Code Status: Full Code Chief Complaint: Evaluation regarding recent inpatient stay for seizures and encephalopathy. ASSESSMENT AND PLAN (G91.1) Obstructive hydrocephalus (HCC) (primary encounter diagnosis) (Z98.2) History of brain shunt - Dr. Lim with Neurosurgery Following - Focused neuro exams with encounters (G40.901) Non-convulsive status epilepticus (HCC) - Continue on Vimpat - Dr. 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 Mckenzie with ID Following - Continue on Vancomycin; recent trough was 15 - PICC Line Intact (R53.81) Debility - Certify therapies - Maintain high falls risk precautions - pt/staff verbalize understanding validated via teach back - Monitor safety awareness Appointments for Next 60 Days Date Time Provider Location Dept Phone 07/21/2021 11:00 AM NICOLE LIM [phone] HPI: (Per Dr. Beltran) Andrew Sifuentes is being seen today for fpc facility (SNF) admission AND management of weakness, tube feed, infected retroperitoneal infection and seizure. ? This is a 71 year old male who presents from [facility] with primary admitting diagnosis of Seizure, enteral feeding via NG tube, infected retroperitoneal hematoma and saddle PE. Past medical history is notable for Obstructive hydrocephalus, venous insufficiency, asthma, and HTN. History obtained from medical record review as well as PATIENT. ? Per documentation, pt presented with a fall and altered mental status. 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 Tip of SUPERVISOR POST WAVE shunt was found to be in the right axillary region. Patient was intubated and underwent EVD (external ventricular drain) .06/07 noted to have Frontal cephalematoma around EVD site, downward gazing, hypertensive, and had shunt revision, VPS placement. CT abd showing infected hematoma left retroperitoneum>?GS aware and antibiotics x 2 weeks recommended; TMAX 100.4 with slight increase WBC; gen surgery was consulted and had IR guided drainage.patient was started on broad spectrum antibiotics and then kept on vancomycin for 6 weeks per INFECTIOUS DISEASE for shunt infection, growing staph saccrolyticus. He was transferred to the floor 06/14/2021 on 2L NC. 06/16/2021 developed acute hypoxic respiratory failure found secondary to saddle PE. He was intubated again in Intensive Care Unit. DVT USS showed b/l DVTs. Started on heparin drip which was changed to Apixaban. Patient transferred to floor now remains on 2 lt NC and tube feeds and full liquid diet. ? Highest Readmission Risk Score 43. 06/30/2021 Update Very friendly and polite man who is lethargic and somewhat of a poor historian when talking with him. He is AANDOx2. He follows commands. Neurologically his pupils are equal and reactive and his strength is equal bilaterally. He states he feels well and has no complaints. No concerns per staff at this time. PAST MEDICAL HISTORY Diagnosis Date - Acute saddle pulmonary embolism with acute cor pulmonale (HCC) 06/15/2021 - Asthma - Contact dermatitis 06/06/2021 - Intracranial shunt - PE (pulmonary embolism) - Primary hypertension 05/31/2021 - Status epilepticus (HCC) 05/31/2021 SUBJECTIVE: Review of Systems Unable to perform ROS: Mental status change Musculoskeletal: Positive for gait problem. Neurological: Positive for weakness. Psychiatric/Behavioral: Positive for confusion. No reports of falls/injuries, changes in cognition/behaviors, or any uncontrolled pain exacerbations. Medications: Medications listed in Epic during SNF admission may not be current. Refer to facility record. Patient records, current medications, most recent labs, family/social history (unchanged) Reviewed. Refer to facility records. OBJECTIVE: Labs/diagnostics: 07/01/2021 Glucose=83 Oz=120 K=4.1 Ds=340 CO2=27 BUN=22 Creatinine=0.6 NNU=644 Ca=8.7 WBC=10.8 RBC=3.40 Hgb=9.3 Hct=29.9 Dlwqgcct=521 Vital Signs: BP 128/80 Pulse 77 Temp 36.7 ?C (98 ?F) Resp 20 Ht 182.9 cm (6') Wt 113 kg (249 lb 3.2 oz) SpO2 96% BMI 33.80 kg/m? Physical Exam: Physical Exam Vitals reviewed. Constitutional: General: He is not in acute distress. (more content not included)...[facility]02-22-2022 [facility] [facility]02-21-2022 [facility]02-21-2022 Note [facility]02-20-2022 [facility] 06-26-2021 [facility]02-19-2022 [facility]02-19-2022 [facility]02-18-2022 [facility]02-18-2022 [facility]02[facility]18-2022 [facility]02-17-2022 [facility]02-17-2022 Note [facility]02-17-2022 [facility] 06-22-2021 NoteO ID: [id number] Author: Xiomy England RN Service: Nursing Author Type: Registered Nurse Type: Nursing Progress Note Filed: 06/22/2021 7:22 PM Note Text: RT contacted as pt has wheezing auscultated and same auditory. For prn Treatment.[facility]02-16-2022 [facility]02-16-2022 [facility]02[facility]16-2022 [facility]02-16-2022 [facility]02-16-2022 [facility]02-15-2022 [facility]02-15-2022 Note [facility]02-15-2022 [facility] 06-21-2021 [facility]02-14-2022 [facility]02-14-2022 [facility]02-14-2022 [facility]02-14-2022 [facility]02[facility]14-2022 [facility]02-13-2022 [facility]02[facility]13-2022 Note [facility]02-13-2022 [facility] 06-19-2021 [facility]02[facility]13-2022 [facility]02-12-2022 [facility]02-12-2022 [facility]02-12-2022 [facility]02[facility]12-2022 [facility]02-12-2022 [facility]02-12-2022 Note [facility]02-12-2022 NoteHNO ID: [id number] Author: Ambar Note Service: ? Author Type: ? Type: Progress Notes Filed: 06/18/2021 3:10 AM Note Text: Epic Scheduled Downtime: 06/18/2021 1:00:00 AM to 06/18/2021 2:27:00 [facility]02-11-2022 [facility]02-11-2022 Note [facility]02-11-2022 [facility] 06-17-2021 [facility]02-11-2022 [facility]02-11-2022 [facility]02-10-2022 [facility]02-10-2022 [facility]02-10-2022 [facility]02-10-2022 [facility]02-10-2022 Note [facility]02-10-2022 [facility] 06-15-2021 [facility]02-09-2022 NoteHNO ID: [id number] Author: Lamonte Kline DO Service: Neurology ICU Author Type: Resident Type: Plan of Care Filed: 06/15/2021 6:21 PM Note Text: Patient's daughter Melissa updated on plan of care and critical condition, all questions answered.[facility]02-09-2022 [facility]02-09-2022 [facility]02-09-2022 [facility]02[facility]09-2022 [facility]02-09-2022 Note [facility]02-09-2022 [facility] 06[facility]15-2021 [facility]02-08-2022 [facility]02[facility]08-2022 [facility]02-08-2022 [facility]02-08-2022 [facility]02-07-2022 [facility]02-07-2022 [facility]02-07-2022 Note [facility]02-07-2022 [facility] 06-12-2021 [facility]02-06-2022 [facility]02[facility]06-2022 [facility]02-05-2022 [facility]02[facility]05-2022 [facility]02-04-2022 [facility]02-04-2022 [facility]02-04-2022 Note [facility]02-04-2022 [facility] 06[facility]09-2021 [facility]02-03-2022 [facility]02-03-2022 [facility]02-03-2022 [facility]02-02-2022 [facility]02-02-2022 NoteHNO ID: [id number] Author: Luis Diaz RN Service: ? Author Type: Registered Nurse Type: Nursing Progress Note Filed: 06/08/2021 9:23 AM Note Text: Patient off the floor to OR at this time.[facility]02-02-2022 [facility]02-02-2022 [facility] 06-08-2021 NoteHNO ID: [id number] Author: Eloise Samuel RN Service: ? Author Type: Registered Nurse Type: Nursing Progress Note Filed: 06/08/2021 12:46 AM Note Text: Dr. Brito notified of changes throughout shift. No new orders at [facility] time[facility] 06-07-2021 NoteHNO ID: [id number] Author: Eloise Samuel RN Service: ? Author Type: Registered Nurse Type: Nursing Progress Note Filed: 06/07/2021 8:01 PM Note Text: Neuro surg BRANDS EDITOR notified of downward deviation of pupils. No new orders at this time.[facility]02-01-2022 [facility]02-01-2022 [facility]02-01-2022 [facility]02[facility]01-2022 [facility]01-31-2022 [facility]01-31-2022 [facility]01-31-2022 Note [facility]01-31-2022 [facility] 06-05-2021 [facility]01-30-2022 [facility]01-30-2022 [facility]01-29-2022 [facility]01-29-2022 NoteHNO ID: [id number] Author: Jermaine Miller PA-C Service: Neurosurgery Author Type: Physician Ruching Machine Operator Type: Plan of Care Filed: 06/04/2021 1:59 PM Note Text: Discussed with Dr. Charles CT brain results. At this time, continue with EVD at 5 mmHg[facility] 06-04-2021 [facility]01-28-2022 [facility]01-28-2022 NoteHNO ID: [id number] Author: Mauricio Frank DO Service: Neurology ICU Author Type: Physician Type: Plan of Care Filed: 06/03/2021 2:38 PM Note Text: I spoke with Melissa and updated her over the phone. Mauricio Frank, [facility]01-28-2022 [facility]01-28-2022 [facility]01-27-2022 [facility]01-27-2022 [facility]01-27-2022 Note [facility]01-26-2022 [facility] 06-01-2021 [facility]26-[facility]-25[facility] Note [facility]01-25-2022 [facility] Diagnosis Leg swelling- Primary Swelling of limb Acute deep vein thrombosis (DVT) of proximal vein of lower extremity, unspecified laterality (HCC) DVT, lower extremity, recurrent, unspecified laterality (HCC) Moderate malnutrition (HCC) Malnutrition of moderate degree History of seizures Personal history of other disorders of nervous system and sense organs documented in this encounter [facility] Work Phone: Evaluation noteNo assessment information available [facility] Work Phone: Evaluation note* Diagnosis Other fatigue- Primary documented in this encounter [facility] Work Phone: Evaluation note* Diagnosis Heel ulceration, left, with unspecified severity (HCC)- Primary documented in this encounter [facility] Work Phone: Evaluation note* Diagnosis Fall, initial encounter- Primary Anticoagulated Encounter for long-term (current) use of 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 documented in this encounter [facility] Work Phone: Evaluation note* Diagnosis Left flank pain- Primary Abdominal pain, unspecified site Calculus of ureter Disease of prostate Unspecified disorder of prostate BPH with urinary obstruction Hypertrophy of prostate with urinary obstruction and other lower urinary tract symptoms (LUTS) [facility] Diagnosis Left flank pain Abdominal pain, unspecified site Calculus of ureter [facility]* Diagnosis Left flank pain- Primary Abdominal pain, unspecified site BPH with urinary obstruction Hypertrophy of prostate with urinary obstruction and other lower urinary tract symptoms (LUTS) History of kidney stones [facility] Name Dates Details Instructions not documented [id number] Work Phone: Instructions* Name Dates Details Instructions not documented [id number] [address] [place] Work Phone: Reason for referral (narrative)No reason for referral information availableWMercy Health Work Phone: Advance Directives No Advanced Directives Records FoundDocuments on File Type Date Recorded Patient Curriculum Developer Expl anation Advance Directives and Living Will Power of Merchandise Marker Documents on File Type Date Recorded Patient Curriculum Developer Expl anation Advance Directive(s) 06/02/2021 2:45 PM Advance Directive(s) 05/29/2021 8:25 PM Latest Code Status on File Code Status Date Activated Date Inactivated Comments Full Code 08/12/2021 2:20 PM 08/19/2021 9:17 PM Full Code Order Discussed With: Patient Full Code 06/17/2021 10:23 AM 06/28/2021 8:04 PM Full Code Order Discussed With: Surrogate Decisi on Maker Surrogate Decision Maker Name: Moon Surrogate Decision Maker Relationship: 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 Adult Children (customer development representative) Documents on File Type Date Recorded Patient Curriculum Developer Expl anation ACP-Advance Directive ACP-Power of Merchandise Marker Latest Code Status on File Code Status Date Activated Date Inactivated Comments Full Code 10/21/2021 4:09 AM Healthcare Agents on File Name Relationship Healthcare Agent Relationshi p Communication Melissakb Sifuentes Child Primary Decision Maker deann Sifuentes Child Secondary Decision Maker Documents on File Type Date Recorded Patient Curriculum Developer Expl anation ACP-Advance Directive ACP-Power of Merchandise Marker ACP-Do Not Resuscitate 11/01/2021 7:03 AM Latest Code Status on File Code Status Date Activated Date Inactivated Comments Full Code 10/21/2021 4:09 AM 10/29/2021 7:25 PM Healthcare Agents on File Name Relationship Healthcare Agent Relationshi p Communication Melissakb Dengyer Child Primary Decision Maker deann Gurpreet Child Secondary Decision Maker Documents on File Type Date Recorded Patient Curriculum Developer Expl anation ACP-Do Not Resuscitate 11/03/2021 10:15 AM ACP-Do Not Resuscitate 11/01/2021 7:03 AM Healthcare Agents on File Name Relationship Healthcare Agent Relationshi p Communication Melissakb Sifuentes Child Primary Decision Maker deann Sifuentes Child Secondary Decision Maker Documents on File Type Date Recorded Patient Curriculum Developer Expl anation ACP-Do Not Resuscitate 11/03/2021 10:15 AM ACP-Do Not Resuscitate 11/01/2021 7:03 AM Latest Code Status on File Code Status Date Activated Date Inactivated Comments Full Code 10/21/2021 4:09 AM 10/29/2021 7:25 PM Healthcare Agents on File Name Relationship Healthcare Agent Relationshi p Communication Melissakb Sifuentes Child Primary Decision Maker deann Sifuentes Child Secondary Decision Maker Documents on File Type Date Recorded Patient Curriculum Developer Expl anation DNR (Do Not Resuscitate) 10/31/2021 DNR (Do Not Resuscitate) 10/21/2021 Documents on File Type Date Recorded Patient Curriculum Developer Expl anation DNR (Do Not Resuscitate) 10/31/2021 DNR (Do Not Resuscitate) 10/21/2021 Family History No Family History Records Found Father Name Dates Details Family history of myocardial infarction(V17.3, Z82.49) Status:Active Father Name Dates Details Family history of myocardial infarction(V17.3, Z82.49) Status:Active Father Name Dates Details Family history of myocardial infarction(V17.3, Z82.49) Status:Active Father Name Dates Details Family history of myocardial infarction(V17.3, Z82.49) Status:Active Unknown Family Member Name Dates Details Family history of myocardial infarction: Father(V17.3, Z82.49) Status:Active Unknown Family Member Name Dates Details Family history of myocardial infarction: Father(V17.3, Z82.49) Status:Active Unknown Family Member Name Dates Details Family history of myocardial infarction: Father(V17.3, Z82.49) Status:Active Father Name Dates Details Family history of myocardial infarction(V17.3, Z82.49) Status:Active Father Name Dates Details Family history of myocardial infarction(V17.3, Z82.49) Status:Active Unknown Family Member Name Dates Details Family history of myocardial infarction: Father(V17.3, Z82.49) Status:Active Unknown Family Member Name Dates Details Family history of myocardial infarction: Father(V17.3, Z82.49) Status:Active Assessments Diagnosis Non-pressure chronic ulcer left lower leg, 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) Ulcer of lower limb, unspecified Summary Purpose Chief Complaint and Reason for Visit Chief Complaint LAB WORK Chief Complaint LAB WORK LABWORK Chief Complaint LAB WORK LABWORK PENITENTIARY LAB WORK PENITENTIARY LABWORK Chief Complaint LAB WORK LABWORK PENITENTIARY LAB WORK PENITENTIARY LABWORK LABWORK LABWORK PENITENTIARY LAB WORK PENITENTIARY LABWORK PENITENTIARY LAB WORK LABWORK PENITENTIARY LAB WORK LABWORK PENITENTIARY LABWORK Chief Complaint LAB WORK LABWORK PENITENTIARY LAB WORK PENITENTIARY LABWORK LABWORK LABWORK PENITENTIARY LAB WORK PENITENTIARY LABWORK PENITENTIARY LAB WORK LABWORK PENITENTIARY LAB WORK LABWORK PENITENTIARY LABWORK PENITENTIARY LABWORK LABWORK Chief Complaint LAB WORK LABWORK PENITENTIARY LAB WORK PENITENTIARY LABWORK LABWORK LABWORK PENITENTIARY LAB WORK PENITENTIARY LABWORK PENITENTIARY LAB WORK LABWORK PENITENTIARY LAB WORK LABWORK PENITENTIARY LABWORK PENITENTIARY LABWORK LABWORK PENITENTIARY LAB WORK Chief Complaint LABWORK PENITENTIARY LAB WORK PENITENTIARY LABWORK LABWORK LABWORK PENITENTIARY LAB WORK PENITENTIARY LABWORK PENITENTIARY LAB WORK LABWORK PENITENTIARY LAB WORK LABWORK PENITENTIARY LABWORK PENITENTIARY LABWORK LABWORK LABWORK PENITENTIARY LAB WORK Chief Complaint LABWORK PENITENTIARY LAB WORK PENITENTIARY LABWORK LABWORK LABWORK PENITENTIARY LAB WORK PENITENTIARY LABWORK PENITENTIARY LAB WORK LABWORK PENITENTIARY LAB WORK LABWORK PENITENTIARY LABWORK PENITENTIARY LABWORK LABWORK LABWORK PENITENTIARY LAB WORK LABWORK PENITENTIARY LABWORK PENITENTIARY LAB WORK PENITENTIARY LABWORK Chief Complaint PENITENTIARY LAB WOR K PENITENTIARY LABWORK LABWORK LABWORK PENITENTIARY LAB WORK PENITENTIARY LABWORK PENITENTIARY LAB WORK LABWORK PENITENTIARY LAB WORK LABWORK PENITENTIARY LABWORK PENITENTIARY LABWORK LABWORK LABWORK PENITENTIARY LAB WORK LABWORK PENITENTIARY LABWORK PENITENTIARY LAB WORK PENITENTIARY LABWORK PENITENTIARY LAB WORK Chief Complaint PENITENTIARY LABWORK LABWORK LABWORK PENITENTIARY LAB WORK PENITENTIARY LABWORK PENITENTIARY LAB WORK LABWORK PENITENTIARY LAB WORK LABWORK PENITENTIARY LABWORK PENITENTIARY LABWORK LABWORK LABWORK PENITENTIARY LAB WORK LABWORK PENITENTIARY LABWORK PENITENTIARY LAB WORK PENITENTIARY LABWORK LABWORK PENITENTIARY LAB WORK Chief Complaint PENITENTIARY LAB WOR K PENITENTIARY LABWORK PENITENTIARY LAB WORK LABWORK PENITENTIARY LAB WORK LABWORK PENITENTIARY LABWORK PENITENTIARY LABWORK LABWORK LABWORK PENITENTIARY LAB WORK LABWORK PENITENTIARY LABWORK PENITENTIARY LAB WORK PENITENTIARY LABWORK LABWORK LABWORK PENITENTIARY LAB WORK PENITENTIARY PATIENT PENITENTIARY LABWORK PENITENTIARY LABWORK Chief Complaint LABWORK PENITENTIARY LAB WORK LABWORK PENITENTIARY LABWORK PENITENTIARY LABWORK LABWORK LABWORK PENITENTIARY LAB WORK LABWORK PENITENTIARY LABWORK PENITENTIARY LAB WORK PENITENTIARY LABWORK LABWORK LABWORK PENITENTIARY LAB WORK PENITENTIARY PATIENT PENITENTIARY LABWORK PENITENTIARY LABWORK PENITENTIARY LAB WORK Chief Complaint LABWORK PENITENTIARY LABWORK PENITENTIARY LABWORK LABWORK LABWORK PENITENTIARY LAB WORK LABWORK PENITENTIARY LABWORK PENITENTIARY LAB WORK PENITENTIARY LABWORK LABWORK LABWORK PENITENTIARY LAB WORK PENITENTIARY PATIENT PENITENTIARY LABWORK PENITENTIARY LABWORK PENITENTIARY LAB WORK PENITENTIARY LAB WORK PENITENTIARY LAB WORK Chief Complaint LABWORK LABWORK PENITENTIARY LAB WORK PENITENTIARY PATIENT PENITENTIARY LABWORK PENITENTIARY LABWORK PENITENTIARY LAB WORK PENITENTIARY LAB WORK PENITENTIARY LAB WORK PENITENTIARY LABWORK PENITENTIARY LABWORK LABWORK PENITENTIARY LAB WORK LABWORK Chief Complaint PENITENTIARY LAB WOR K PENITENTIARY PATIENT PENITENTIARY LABWORK PENITENTIARY LABWORK PENITENTIARY LAB WORK PENITENTIARY LAB WORK PENITENTIARY LAB WORK PENITENTIARY LABWORK PENITENTIARY LABWORK LABWORK PENITENTIARY LAB WORK LABWORK PENITENTIARY LABWORK Chief Complaint PENITENTIARY PATIENT PENITENTIARY LABWORK PENITENTIARY LABWORK PENITENTIARY LAB WORK PENITENTIARY LAB WORK PENITENTIARY LAB WORK PENITENTIARY LABWORK PENITENTIARY LABWORK LABWORK PENITENTIARY LAB WORK LABWORK PENITENTIARY LABWORK PENITENTIARY LABWORK Chief Complaint PENITENTIARY LABWORK PENITENTIARY LAB WORK PENITENTIARY LAB WORK PENITENTIARY LAB WORK PENITENTIARY LABWORK PENITENTIARY LABWORK LABWORK PENITENTIARY LAB WORK LABWORK PENITENTIARY LABWORK PENITENTIARY LABWORK PENITENTIARY LABWORK Chief Complaint PENITENTIARY LABWORK PENITENTIARY LAB WORK PENITENTIARY LAB WORK PENITENTIARY LAB WORK PENITENTIARY LABWORK PENITENTIARY LABWORK LABWORK PENITENTIARY LAB WORK LABWORK PENITENTIARY LABWORK PENITENTIARY LABWORK PENITENTIARY LABWORK PENITENTIARY LABWORK Chief Complaint PENITENTIARY LABWORK LABWORK PENITENTIARY LAB WORK LABWORK PENITENTIARY LABWORK PENITENTIARY LABWORK PENITENTIARY LABWORK PENITENTIARY LABWORK PENITENTIARY LABWORK LABWORK PENITENTIARY LABWORK Chief Complaint LABWORK PENITENTIARY LAB WORK LABWORK PENITENTIARY LABWORK PENITENTIARY LABWORK PENITENTIARY LABWORK PENITENTIARY LABWORK PENITENTIARY LABWORK LABWORK LABWORK PENITENTIARY LABWORK PENITENTIARY LAB WORK PENITENTIARY LABWORK PENITENTIARY LAB WORK Chief Complaint LABWORK PENITENTIARY LAB WORK LABWORK PENITENTIARY LABWORK PENITENTIARY LABWORK PENITENTIARY LABWORK PENITENTIARY LABWORK PENITENTIARY LABWORK LABWORK LABWORK PENITENTIARY LABWORK PENITENTIARY LAB WORK PENITENTIARY LABWORK PENITENTIARY LAB WORK PENITENTIARY LABWORK Chief Complaint LABWORK PENITENTIARY LAB WORK LABWORK PENITENTIARY LABWORK PENITENTIARY LABWORK PENITENTIARY LABWORK PENITENTIARY LABWORK PENITENTIARY LABWORK LABWORK LABWORK PENITENTIARY LABWORK PENITENTIARY LAB WORK PENITENTIARY LABWORK PENITENTIARY LAB WORK PENITENTIARY LABWORK LABWORK Chief Complaint PENITENTIARY LABWORK PENITENTIARY LABWORK PENITENTIARY LABWORK PENITENTIARY LABWORK PENITENTIARY LABWORK LABWORK LABWORK PENITENTIARY LABWORK PENITENTIARY LAB WORK PENITENTIARY LABWORK PENITENTIARY LAB WORK PENITENTIARY LABWORK LABWORK PENITENTIARY LABWORK Chief Complaint PENITENTIARY LABWORK PENITENTIARY LABWORK PENITENTIARY LABWORK PENITENTIARY LABWORK PENITENTIARY LABWORK LABWORK LABWORK PENITENTIARY LABWORK PENITENTIARY LAB WORK PENITENTIARY LABWORK PENITENTIARY LAB WORK PENITENTIARY LABWORK LABWORK PENITENTIARY LABWORK LABWORK Chief Complaint PENITENTIARY LABWORK LABWORK LABWORK PENITENTIARY LABWORK PENITENTIARY LAB WORK PENITENTIARY LABWORK PENITENTIARY LAB WORK PENITENTIARY LABWORK LABWORK PENITENTIARY LABWORK LABWORK PENITENTIARY LAB WORK PENITENTIARY LAB WORK PENITENTIARY LABWORK Chief Complaint LABWORK PENITENTIARY LABWORK LABWORK PENITENTIARY LAB WORK PENITENTIARY LAB WORK PENITENTIARY LABWORK PENITENTIARY LABWORK PENITENTIARY LAB WORK PENITENTIARY LAB WORK PENITENTIARY LAB WORK LABWORK PENITENTIARY LABWORK Chief Complaint PENITENTIARY LAB WOR K PENITENTIARY LAB WORK PENITENTIARY LABWORK PENITENTIARY LABWORK PENITENTIARY LAB WORK PENITENTIARY LAB WORK PENITENTIARY LAB WORK LABWORK PENITENTIARY LABWORK LABWORK PENITENTIARY LAB WORK PENITENTIARY LAB WORK Chief Complaint PENITENTIARY LAB WOR K PENITENTIARY LABWORK PENITENTIARY LABWORK PENITENTIARY LAB WORK PENITENTIARY LAB WORK PENITENTIARY LAB WORK LABWORK PENITENTIARY LABWORK LABWORK PENITENTIARY LAB WORK PENITENTIARY LAB WORK Chief Complaint PENITENTIARY LABWORK PENITENTIARY LABWORK PENITENTIARY LAB WORK PENITENTIARY LAB WORK PENITENTIARY LAB WORK LABWORK PENITENTIARY LABWORK LABWORK PENITENTIARY LAB WORK PENITENTIARY LAB WORK PENITENTIARY LABWORK LABWORK LABWORK Chief Complaint PENITENTIARY LAB WOR K PENITENTIARY LAB WORK PENITENTIARY LAB WORK LABWORK PENITENTIARY LABWORK LABWORK PENITENTIARY LAB WORK PENITENTIARY LAB WORK PENITENTIARY LABWORK LABWORK LABWORK LABWORK LABWORK LABWORK Chief Complaint PENITENTIARY LAB WOR K LABWORK PENITENTIARY LABWORK LABWORK PENITENTIARY LAB WORK PENITENTIARY LAB WORK PENITENTIARY LABWORK LABWORK LABWORK LABWORK LABWORK PENITENTIARY LABWORK PENITENTIARY LAB WORK LABWORK PENITENTIARY LAB WORK PENITENTIARY LAB WORK Chief Complaint PENITENTIARY LAB WOR K LABWORK PENITENTIARY LABWORK LABWORK PENITENTIARY LAB WORK PENITENTIARY LAB WORK PENITENTIARY LABWORK LABWORK LABWORK LABWORK LABWORK PENITENTIARY LABWORK PENITENTIARY LAB WORK LABWORK PENITENTIARY LAB WORK PENITENTIARY LAB WORK PENITENTIARY LABWORK Chief Complaint PENITENTIARY LAB WOR K PENITENTIARY LAB WORK PENITENTIARY LABWORK LABWORK LABWORK LABWORK LABWORK PENITENTIARY LABWORK PENITENTIARY LAB WORK LABWORK PENITENTIARY LAB WORK PENITENTIARY LAB WORK PENITENTIARY LABWORK NUSING HOME LAB WORK Chief Complaint PENITENTIARY LAB WOR K PENITENTIARY LABWORK LABWORK LABWORK LABWORK LABWORK PENITENTIARY LABWORK PENITENTIARY LAB WORK LABWORK PENITENTIARY LAB WORK PENITENTIARY LAB WORK PENITENTIARY LABWORK NUSING HOME LAB WORK LABWORK Chief Complaint PENITENTIARY LAB WOR K PENITENTIARY LABWORK LABWORK LABWORK LABWORK LABWORK PENITENTIARY LABWORK PENITENTIARY LAB WORK LABWORK PENITENTIARY LAB WORK PENITENTIARY LAB WORK PENITENTIARY LABWORK NUSING HOME LAB WORK PENITENTIARY LABWORK LABWORK Chief Complaint LABWORK PENITENTIARY LAB WORK PENITENTIARY LAB WORK PENITENTIARY LABWORK NUSING HOME LAB WORK PENITENTIARY LABWORK LABWORK PENITENTIARY LABWORK PENITENTIARY LAB WORK LABWORK LABWORK Chief Complaint NUSING HOME LAB WORK PENITENTIARY LABWORK LABWORK PENITENTIARY LABWORK PENITENTIARY LAB WORK LABWORK PENITENTIARY LAB WORK LABWORK LABWORK Chief Complaint NUSING HOME LAB WORK PENITENTIARY LABWORK LABWORK PENITENTIARY LABWORK PENITENTIARY LAB WORK LABWORK PENITENTIARY LAB WORK LABWORK PENITENTIARY LAB WORK LABWORK Chief Complaint PENITENTIARY LABWORK LABWORK PENITENTIARY LABWORK PENITENTIARY LAB WORK LABWORK PENITENTIARY LAB WORK LABWORK PENITENTIARY LAB WORK LABWORK LABWORK Chief Complaint PENITENTIARY LABWORK LABWORK PENITENTIARY LABWORK PENITENTIARY LAB WORK LABWORK PENITENTIARY LAB WORK LABWORK PENITENTIARY LAB WORK LABWORK LABWORK LABWORK Chief Complaint PENITENTIARY LABWORK LABWORK PENITENTIARY LABWORK PENITENTIARY LAB WORK LABWORK PENITENTIARY LAB WORK LABWORK PENITENTIARY LAB WORK LABWORK LABWORK LABWORK LABWORK Chief Complaint PENITENTIARY LABWORK LABWORK PENITENTIARY LABWORK PENITENTIARY LAB WORK LABWORK PENITENTIARY LAB WORK LABWORK PENITENTIARY LAB WORK LABWORK LABWORK PENITENTIARY LAB WORK LABWORK LABWORK LABWORK Chief Complaint LABWORK PENITENTIARY LABWORK PENITENTIARY LAB WORK LABWORK PENITENTIARY LAB WORK LABWORK PENITENTIARY LAB WORK LABWORK LABWORK PENITENTIARY LAB WORK LABWORK LABWORK LABWORK LABWORK LABWORK LABWORK LABWORK Chief Complaint PENITENTIARY LABWORK PENITENTIARY LAB WORK LABWORK PENITENTIARY LAB WORK LABWORK PENITENTIARY LAB WORK LABWORK LABWORK PENITENTIARY LAB WORK LABWORK LABWORK LABWORK LABWORK LABWORK LABWORK LABWORK LABWORK Chief Complaint LABWORK PENITENTIARY LAB WORK LABWORK PENITENTIARY LAB WORK LABWORK LABWORK PENITENTIARY LAB WORK LABWORK LABWORK LABWORK LABWORK LABWORK LABWORK LABWORK LABWORK LABWORK Chief Complaint PENITENTIARY LABWORK LABWORK LABWORK LABWORK LABWORK PENITENTIARY LABWORK PENITENTIARY LAB WORK LABWORK PENITENTIARY LAB WORK PENITENTIARY LAB WORK PENITENTIARY LABWORK NUSING HOME LAB WORK PENITENTIARY LABWORK LABWORK PENITENTIARY LABWORK PENITENTIARY LAB WORK Chief Complaint Admit Date PENITENTIARY LAB WORK March 13, 2024 5:00am LABWORK March 14, 2024 5 :00am PENITENTIARY LAB WORK March 17 4 5:00am PENITENTIARY LAB WORK March 18 5:00am PENITENTIARY LAB WORK March 19 4 4:00am PENITENTIARY LAB WORK March 20 4 5:00am PENITENTIARY LAB WORK March 24 4 5:00am PENITENTIARY LAB WORK March 27 5:00am LABWORK March 31, 2024 5:00am PENITENTIARY LAB WORK April 04 5:00am LABWORK April 07, 2024 5 :00am PENITENTIARY LAB WORK April 10, 2024 5:00am PENITENTIARY LAB WORK April 14, 2024 5:00am PENITENTIARY LAB WORK April 17 5:00am LABWORK April 21, 2024 5:00am PENITENTIARY LAB WORK April 24 4:00am LABWORK April 28, 2024 5:00am PENITENTIARY LAB WORK May 01 4:00am PENITENTIARY LAB WORK May 05 5:00am PENITENTIARY LAB WORK May 08, 2024 5:00am PENITENTIARY LAB WORK May 09, 2024 4:00am LABWORK May 12, 2024 5: 00am PENITENTIARY LAB WORK May 15, 2024 5:00am PENITENTIARY LAB WORK May 19, 2024 4:00am PENITENTIARY LAB WORK May 20, 2024 5:00am PENITENTIARY LAB WORK May 22, 2024 5:00am LABWORK May 26, 2024 5 :00am PENITENTIARY LAB WORK May 29, 2024 5:00am PENITENTIARY LAB WORK June 02, 2024 5:00am PENITENTIARY LAB WORK June 05, 2024 5:00am LABWORK June 09, 2024 5 :00am PENITENTIARY LAB WORK June 12, 2024 5:00am PENITENTIARY LAB WORK June 16 5:00am PENITENTIARY LAB WORK June 19 5:00am LABWORK June 23, 2024 5:00am PENITENTIARY LAB WORK June 26 5:00am PENITENTIARY LAB WORK June 30 5:00am Chief Complaint Admit Date LABWORK April 07, 2024 5 :00am PENITENTIARY LAB WORK April 10, 2024 5:00am PENITENTIARY LAB WORK April 14, 2024 5:00am PENITENTIARY LAB WORK April 17 5:00am LABWORK April 21, 2024 5:00am PENITENTIARY LAB WORK April 24 4:00am LABWORK April 28, 2024 5:00am PENITENTIARY LAB WORK May 01 4:00am PENITENTIARY LAB WORK May 05 5:00am PENITENTIARY LAB WORK May 08, 2024 5:00am PENITENTIARY LAB WORK May 09, 2024 4:00am LABWORK May 12, 2024 5: 00am PENITENTIARY LAB WORK May 15, 2024 5:00am PENITENTIARY LAB WORK May 19, 2024 4:00am PENITENTIARY LAB WORK May 20, 2024 5:00am PENITENTIARY LAB WORK May 22, 2024 5:00am LABWORK May 26, 2024 5 :00am PENITENTIARY LAB WORK May 29, 2024 5:00am PENITENTIARY LAB WORK June 02, 2024 5:00am PENITENTIARY LAB WORK June 05, 2024 5:00am LABWORK June 09, 2024 5 :00am PENITENTIARY LAB WORK June 12, 2024 5:00am PENITENTIARY LAB WORK June 16 5:00am PENITENTIARY LAB WORK June 19 5:00am LABWORK June 23, 2024 5:00am PENITENTIARY LAB WORK June 26 5:00am PENITENTIARY LAB WORK June 30 5:00am PENITENTIARY LAB WORK July 03 5:00am PENITENTIARY LAB WORK July 07, 2024 4: 00am LABWORK July 11, 2024 5:00 am LABWORK July 14, 2024 5:0 0am PENITENTIARY LAB WORK July 17, 2024 4 :00am PENITENTIARY LAB WORK July 24, 2024 4 :00am Chief Complaint Admit Date PENITENTIARY LAB WORK April 14, 2024 5:00am PENITENTIARY LAB WORK April 17 5:00am LABWORK April 21, 2024 5:00am PENITENTIARY LAB WORK April 24 4:00am LABWORK April 28, 2024 5:00am PENITENTIARY LAB WORK May 01 4:00am PENITENTIARY LAB WORK May 05 5:00am PENITENTIARY LAB WORK May 08, 2024 5:00am PENITENTIARY LAB WORK May 09, 2024 4:00am LABWORK May 12, 2024 5: 00am PENITENTIARY LAB WORK May 15, 2024 5:00am PENITENTIARY LAB WORK May 19, 2024 4:00am PENITENTIARY LAB WORK May 20, 2024 5:00am PENITENTIARY LAB WORK May 22, 2024 5:00am LABWORK May 26, 2024 5 :00am PENITENTIARY LAB WORK May 29, 2024 5:00am PENITENTIARY LAB WORK June 02, 2024 5:00am PENITENTIARY LAB WORK June 05, 2024 5:00am LABWORK June 09, 2024 5 :00am PENITENTIARY LAB WORK June 12, 2024 5:00am PENITENTIARY LAB WORK June 16 5:00am PENITENTIARY LAB WORK June 19 5:00am LABWORK June 23, 2024 5:00am PENITENTIARY LAB WORK June 26 5:00am PENITENTIARY LAB WORK June 30 5:00am PENITENTIARY LAB WORK July 03 5:00am PENITENTIARY LAB WORK July 07, 2024 4: 00am LABWORK July 11, 2024 5:00 am LABWORK July 14, 2024 5:0 0am PENITENTIARY LAB WORK July 17, 2024 4 :00am PENITENTIARY LAB WORK July 24, 2024 4 :00am LABWORK July 25, 2024 5:0 0am Chief Complaint Admit Date PENITENTIARY LAB WORK April 14, 2024 5:00am PENITENTIARY LAB WORK April 17 5:00am LABWORK April 21, 2024 5:00am PENITENTIARY LAB WORK April 24 4:00am LABWORK April 28, 2024 5:00am PENITENTIARY LAB WORK May 01 4:00am PENITENTIARY LAB WORK May 05 5:00am PENITENTIARY LAB WORK May 08, 2024 5:00am PENITENTIARY LAB WORK May 09, 2024 4:00am LABWORK May 12, 2024 5: 00am PENITENTIARY LAB WORK May 15, 2024 5:00am PENITENTIARY LAB WORK May 19, 2024 4:00am PENITENTIARY LAB WORK May 20, 2024 5:00am PENITENTIARY LAB WORK May 22, 2024 5:00am LABWORK May 26, 2024 5 :00am PENITENTIARY LAB WORK May 29, 2024 5:00am PENITENTIARY LAB WORK June 02, 2024 5:00am PENITENTIARY LAB WORK June 05, 2024 5:00am LABWORK June 09, 2024 5 :00am PENITENTIARY LAB WORK June 12, 2024 5:00am PENITENTIARY LAB WORK June 16 5:00am PENITENTIARY LAB WORK June 19 5:00am LABWORK June 23, 2024 5:00am PENITENTIARY LAB WORK June 26 5:00am PENITENTIARY LAB WORK June 30 5:00am PENITENTIARY LAB WORK July 03 5:00am PENITENTIARY LAB WORK July 07, 2024 4: 00am LABWORK July 11, 2024 5:00 am LABWORK July 14, 2024 5:0 0am PENITENTIARY LAB WORK July 17, 2024 4 :00am PENITENTIARY LAB WORK July 21, 2024 5 :00am PENITENTIARY LAB WORK July 24, 2024 4 :00am LABWORK July 25, 2024 5:0 0am PENITENTIARY LAB WORK July 31, 2024 4 :00am Chief Complaint Admit Date PENITENTIARY LAB WORK April 17 5:00am LABWORK April 21, 2024 5:00am PENITENTIARY LAB WORK April 24 4:00am LABWORK April 28, 2024 5:00am PENITENTIARY LAB WORK May 01 4:00am PENITENTIARY LAB WORK May 05 5:00am PENITENTIARY LAB WORK May 08, 2024 5:00am PENITENTIARY LAB WORK May 09, 2024 4:00am LABWORK May 12, 2024 5: 00am PENITENTIARY LAB WORK May 15, 2024 5:00am PENITENTIARY LAB WORK May 19, 2024 4:00am PENITENTIARY LAB WORK May 20, 2024 5:00am PENITENTIARY LAB WORK May 22, 2024 5:00am LABWORK May 26, 2024 5 :00am PENITENTIARY LAB WORK May 29, 2024 5:00am PENITENTIARY LAB WORK June 02, 2024 5:00am PENITENTIARY LAB WORK June 05, 2024 5:00am LABWORK June 09, 2024 5 :00am PENITENTIARY LAB WORK June 12, 2024 5:00am PENITENTIARY LAB WORK June 16 5:00am PENITENTIARY LAB WORK June 19 5:00am LABWORK June 23, 2024 5:00am PENITENTIARY LAB WORK June 26 5:00am PENITENTIARY LAB WORK June 30 5:00am PENITENTIARY LAB WORK July 03 5:00am PENITENTIARY LAB WORK July 07, 2024 4: 00am LABWORK July 11, 2024 5:00 am LABWORK July 14, 2024 5:0 0am PENITENTIARY LAB WORK July 17, 2024 4 :00am PENITENTIARY LAB WORK July 21, 2024 5 :00am PENITENTIARY LAB WORK July 24, 2024 4 :00am LABWORK July 25, 2024 5:0 0am PENITENTIARY LAB WORK July 28, 2024 5 :00am PENITENTIARY LAB WORK July 31, 2024 4 :00am Chief Complaint Admit Date PENITENTIARY LAB WORK April 24 4:00am LABWORK April 28, 2024 5:00am PENITENTIARY LAB WORK May 01 4:00am PENITENTIARY LAB WORK May 05 5:00am PENITENTIARY LAB WORK May 08, 2024 5:00am PENITENTIARY LAB WORK May 09, 2024 4:00am LABWORK May 12, 2024 5: 00am PENITENTIARY LAB WORK May 15, 2024 5:00am PENITENTIARY LAB WORK May 19, 2024 4:00am PENITENTIARY LAB WORK May 20, 2024 5:00am PENITENTIARY LAB WORK May 22, 2024 5:00am LABWORK May 26, 2024 5 :00am PENITENTIARY LAB WORK May 29, 2024 5:00am PENITENTIARY LAB WORK June 02, 2024 5:00am PENITENTIARY LAB WORK June 05, 2024 5:00am LABWORK June 09, 2024 5 :00am PENITENTIARY LAB WORK June 12, 2024 5:00am PENITENTIARY LAB WORK June 16 5:00am PENITENTIARY LAB WORK June 19 5:00am LABWORK June 23, 2024 5:00am PENITENTIARY LAB WORK June 26 5:00am PENITENTIARY LAB WORK June 30 5:00am PENITENTIARY LAB WORK July 03 5:00am PENITENTIARY LAB WORK July 07, 2024 4: 00am LABWORK July 11, 2024 5:00 am LABWORK July 14, 2024 5:0 0am PENITENTIARY LAB WORK July 17, 2024 4 :00am PENITENTIARY LAB WORK July 21, 2024 5 :00am PENITENTIARY LAB WORK July 24, 2024 4 :00am LABWORK July 25, 2024 5:0 0am PENITENTIARY LAB WORK July 28, 2024 5 :00am PENITENTIARY LAB WORK July 31, 2024 4 :00am LABWORK August 04, 2024 5:0 0am Chief Complaint Admit Date PENITENTIARY LAB WORK May 15, 2024 5:00am PENITENTIARY LAB WORK May 19, 2024 4:00am PENITENTIARY LAB WORK May 20, 2024 5:00am PENITENTIARY LAB WORK May 22, 2024 5:00am LABWORK May 26, 2024 5 :00am PENITENTIARY LAB WORK May 29, 2024 5:00am PENITENTIARY LAB WORK June 02, 2024 5:00am PENITENTIARY LAB WORK June 05, 2024 5:00am LABWORK June 09, 2024 5 :00am PENITENTIARY LAB WORK June 12, 2024 5:00am PENITENTIARY LAB WORK June 16 5:00am PENITENTIARY LAB WORK June 19 5:00am LABWORK June 23, 2024 5:00am PENITENTIARY LAB WORK June 26 5:00am PENITENTIARY LAB WORK June 30 5:00am PENITENTIARY LAB WORK July 03 5:00am PENITENTIARY LAB WORK July 07, 2024 4: 00am LABWORK July 11, 2024 5:00 am LABWORK July 14, 2024 5:0 0am PENITENTIARY LAB WORK July 17, 2024 4 :00am PENITENTIARY LAB WORK July 21, 2024 5 :00am PENITENTIARY LAB WORK July 24, 2024 4 :00am LABWORK July 25, 2024 5:0 0am PENITENTIARY LAB WORK July 28, 2024 5 :00am PENITENTIARY LAB WORK July 31, 2024 4 :00am LABWORK August 04, 2024 5:0 0am LABWORK August 07, 2024 5:00 am PENITENTIARY LAB WORK August 11, 2024 5: 00am PENITENTIARY LAB WORK August 14, 2024 5 :00am PENITENTIARY LAB WORK August 18, 2024 5 :00am Chief Complaint Admit Date PENITENTIARY LAB WORK May 20, 2024 5:00am PENITENTIARY LAB WORK May 22, 2024 5:00am LABWORK May 26, 2024 5 :00am PENITENTIARY LAB WORK May 29, 2024 5:00am PENITENTIARY LAB WORK June 02, 2024 5:00am PENITENTIARY LAB WORK June 05, 2024 5:00am LABWORK June 09, 2024 5 :00am PENITENTIARY LAB WORK June 12, 2024 5:00am PENITENTIARY LAB WORK June 16 5:00am PENITENTIARY LAB WORK June 19 5:00am LABWORK June 23, 2024 5:00am PENITENTIARY LAB WORK June 26 5:00am PENITENTIARY LAB WORK June 30 5:00am PENITENTIARY LAB WORK July 03 5:00am PENITENTIARY LAB WORK July 07, 2024 4: 00am LABWORK July 11, 2024 5:00 am LABWORK July 14, 2024 5:0 0am PENITENTIARY LAB WORK July 17, 2024 4 :00am PENITENTIARY LAB WORK July 21, 2024 5 :00am PENITENTIARY LAB WORK July 24, 2024 4 :00am LABWORK July 25, 2024 5:0 0am PENITENTIARY LAB WORK July 28, 2024 5 :00am PENITENTIARY LAB WORK July 31, 2024 4 :00am LABWORK August 04, 2024 5:0 0am LABWORK August 07, 2024 5:00 am PENITENTIARY LAB WORK August 11, 2024 5: 00am PENITENTIARY LAB WORK August 14, 2024 5 :00am PENITENTIARY LAB WORK August 18, 2024 5 :00am LABWORK August 28, 2024 5:0 0am Chief Complaint Admit Date PENITENTIARY LAB WORK May 22, 2024 5:00am LABWORK May 26, 2024 5 :00am PENITENTIARY LAB WORK May 29, 2024 5:00am PENITENTIARY LAB WORK June 02, 2024 5:00am PENITENTIARY LAB WORK June 05, 2024 5:00am LABWORK June 09, 2024 5 :00am PENITENTIARY LAB WORK June 12, 2024 5:00am PENITENTIARY LAB WORK June 16 5:00am PENITENTIARY LAB WORK June 19 5:00am LABWORK June 23, 2024 5:00am PENITENTIARY LAB WORK June 26 5:00am PENITENTIARY LAB WORK June 30 5:00am PENITENTIARY LAB WORK July 03 5:00am PENITENTIARY LAB WORK July 07, 2024 4: 00am LABWORK July 11, 2024 5:00 am LABWORK July 14, 2024 5:0 0am PENITENTIARY LAB WORK July 17, 2024 4 :00am PENITENTIARY LAB WORK July 21, 2024 5 :00am PENITENTIARY LAB WORK July 24, 2024 4 :00am LABWORK July 25, 2024 5:0 0am PENITENTIARY LAB WORK July 28, 2024 5 :00am PENITENTIARY LAB WORK July 31, 2024 4 :00am LABWORK August 04, 2024 5:0 0am LABWORK August 07, 2024 5:00 am PENITENTIARY LAB WORK August 11, 2024 5: 00am PENITENTIARY LAB WORK August 14, 2024 5 :00am PENITENTIARY LAB WORK August 18, 2024 5 :00am PENITENTIARY LAB WORK August 21, 2024 5 :00am LABWORK August 28, 2024 5:0 0am LABWORK September 01, 2024 5:0 0am Chief Complaint Admit Date PENITENTIARY LAB WORK June 05, 2024 5:00am LABWORK June 09, 2024 5 :00am PENITENTIARY LAB WORK June 12, 2024 5:00am PENITENTIARY LAB WORK June 16 5:00am PENITENTIARY LAB WORK June 19 5:00am LABWORK June 23, 2024 5:00am PENITENTIARY LAB WORK June 26 5:00am PENITENTIARY LAB WORK June 30 5:00am PENITENTIARY LAB WORK July 03 5:00am PENITENTIARY LAB WORK July 07, 2024 4: 00am LABWORK July 11, 2024 5:00 am LABWORK July 14, 2024 5:0 0am PENITENTIARY LAB WORK July 17, 2024 4 :00am PENITENTIARY LAB WORK July 21, 2024 5 :00am PENITENTIARY LAB WORK July 24, 2024 4 :00am LABWORK July 25, 2024 5:0 0am PENITENTIARY LAB WORK July 28, 2024 5 :00am PENITENTIARY LAB WORK July 31, 2024 4 :00am LABWORK August 04, 2024 5:0 0am LABWORK August 07, 2024 5:00 am PENITENTIARY LAB WORK August 11, 2024 5: 00am PENITENTIARY LAB WORK August 14, 2024 5 :00am PENITENTIARY LAB WORK August 18, 2024 5 :00am PENITENTIARY LAB WORK August 21, 2024 5 :00am PENITENTIARY LAB WORK August 25, 2024 4 :00am LABWORK August 28, 2024 5:0 0am LABWORK September 01, 2024 5:0 0am LABWORK September 04, 2024 5:00am Chief Complaint Admit Date PENITENTIARY LAB WORK June 05, 2024 5:00am LABWORK June 09, 2024 5 :00am PENITENTIARY LAB WORK June 12, 2024 5:00am PENITENTIARY LAB WORK June 16 5:00am PENITENTIARY LAB WORK June 19 5:00am LABWORK June 23, 2024 5:00am PENITENTIARY LAB WORK June 26 5:00am PENITENTIARY LAB WORK June 30 5:00am PENITENTIARY LAB WORK July 03 5:00am PENITENTIARY LAB WORK July 07, 2024 4: 00am LABWORK July 11, 2024 5:00 am LABWORK July 14, 2024 5:0 0am PENITENTIARY LAB WORK July 17, 2024 4 :00am PENITENTIARY LAB WORK July 21, 2024 5 :00am PENITENTIARY LAB WORK July 24, 2024 4 :00am LABWORK July 25, 2024 5:0 0am PENITENTIARY LAB WORK July 28, 2024 5 :00am PENITENTIARY LAB WORK July 31, 2024 4 :00am LABWORK August 04, 2024 5:0 0am LABWORK August 07, 2024 5:00 am PENITENTIARY LAB WORK August 11, 2024 5: 00am PENITENTIARY LAB WORK August 14, 2024 5 :00am PENITENTIARY LAB WORK August 18, 2024 5 :00am PENITENTIARY LAB WORK August 21, 2024 5 :00am PENITENTIARY LAB WORK August 25, 2024 4 :00am LABWORK August 28, 2024 5:0 0am LABWORK September 01, 2024 5:0 0am LABWORK September 04, 2024 5:00am LABWORK September 15, 2024 5:00a m Reason for Referral Specialty Diagnoses / Procedures Referred By Aki kumari Referred To Contact Urology Diagnoses Other fatigue Lanette Munguia DO [address] [place] [address] [facility] [place] [address] [place] [address] Referral ID Status Reason Start Date Expiration Date V isits Requested Visits Authorized [id number] Open Specialty Services Required 11/01/2021 11/01/2022 1 1 Scheduling Instructions [facility] [place] [place] Urology - [facility] [address] , [address] [place], [place] [address] Specialty Diagnoses / Procedures Referred By Contac t Referred To Contact IP Unit Diagnoses Heel ulceration, left, with unspecified severity (HCC) Henry Hidalgo PA [address] [place] [address] [facility] [address] [place] [address] Referral ID Status Reason Start Date Expiration Date V isits Requested Visits Authorized [id number] Open Specialty Services Required 12/22/2021 12/22/2022 1 1 Scheduling Instructions [facility] [address] [place] [id number] Comments Please use the parking lot located on [employer] or [employer]. There are handicap parking spots located in a small lot beside the wound care entrance off of [facility]. Please be advised there is a small incline from those handicap spots to our main door. Bring photo ID and insurance card to photocopy. Wear loose fitting clothing (to easily access wound). Bring list of medications (or can be sent by office). Check in at Registration for your first visit. Please call us directly with any questions [phone]. We look forward to helping you heal. Specialty Diagnoses / Procedures Referred By Contac t Referred To Contact Radiology Diagnoses Left flank pain Calculus of ureter Procedures CT abdomen pelvis wo IV contrast Rebecca Buck MD [address] [place] [address] Referral ID Status Reason Start Date Expiration Date V isits Requested Visits Authorized [id number] Pending Review 08/13/2023 08/12/2024 1 1 Referral ID Status Reason Start Date Expiration Date Visits Re quested Visits Authorized [id number] Closed 08/17/2023 09/16/2023 1 1 Additional Source Comments Source Comments (unrecognize d section and content) In the event this informatio n is protected by the Federal Confidentiality of Alcohol and Drug Abuse Patient Records regulations: The Federal rules restrict any use of the information to criminally investigate or prosecute any alcohol or drug abuse patient.[facility] the event this information is protected by the Federal Confidentiality of Alcohol and Drug Abuse Patient Records regulations: The Federal rules restrict any use of the information to criminally investigate or prosecute any alcohol or drug abuse patient.[facility] (unrecognized sect ion and content) No Status Records FoundNo Status Records FoundNo Status Records FoundNo Status Records FoundNo Status Records FoundNo Status Records FoundNo Status Records FoundNo Status Records FoundNo Status Records FoundNo Status Records Found INFORMATION SOURCE (unrecogn ized section and content) DATE CREATED AUTHOR 05/20/2021 [facility] DATE CREATED AUTHOR AUTHOR'S ORGANIZ ATION 06/07/2021 [facility] DATE CREATED AUTHOR AUTHOR'S ORGANIZ ATION 08/02/2021 [facility] DATE CREATED AUTHOR AUTHOR'S ORGANIZ ATION 12/09/2021 [facility] DATE CREATED AUTHOR AUTHOR'S ORGANIZ ATION 12/29/2021 [employer] DATE CREATED AUTHOR AUTHOR'S ORGANIZ ATION 02/04/2022 [facility] DATE CREATED AUTHOR AUTHOR'S ORGANIZ ATION 03/03/2022 [facility] DATE CREATED AUTHOR AUTHOR'S ORGANIZ ATION 09/15/2023 [facility] DATE CREATED AUTHOR AUTHOR'S ORGANIZ ATION 10/15/2024 [facility] Reason for Visit (unrecogniz ed section and content) Reason Comments Missed Appointment Reason Comments Leg Swelling Blood clots Reason Comments Altered Mental Status Pt presents to ED via [facility] for complaint listed. Pt is from [facility]. Pt's LKW was 1000 hours today. Per EMS, pt had a - [place]. Pt denies CP, SOB, and N/V. Pt seems slow to respond, slightly confused at this time. Reason Comments Osteomyelitis Patient from [facility], facility did xrays on left lower leg and and have concerns for possible osteomyelitis A&Ox2 to self and place, stated year 2022 preside [facility] Reason Comments Fall Patient had unwitnes sed fall at [facility] landed on butt. Is on thinners, denies LOC, denies head injury has no complaints at this time Reason Comments New Patient Bilateral flank pain , hx of kidney stones Nephrolithiasis Reason Onset Date Comments Error (VOID this visit) 08/21/2023 Specialty Diagnoses / Procedures Referred By Aki kumari Referred To Contact Radiology Diagnoses Left flank pain Calculus of ureter Procedures CT abdomen pelvis wo IV contrast Rebecca Buck MD [address] [place] [address] Referral ID Status Reason Start Date Expiration Date Visits Re quested Visits Authorized [id number] Closed 08/17/2023 09/16/2023 1 1 Reason Comments left flank pain 8/10 pain when touch ed Reason Onset Date Comments CT appt Boaz advice 08/21/2023 Reason Onset Date Comments OTHER 08/31/2023 Care Teams (unrecognized sec tion and content) Team Status: Active Member Role Status Dates Dr. Monika Staley MD Primary Care Provider Active Team Status: Inactive Member Role Status Dates Dr. Monika Staley MD Primary Care Provider Active Start: June 05, 2024 End: June 05, 2024 Dr. Kvng NOVAK MD Attending Provider Active Start: June 05, 2024 End: June 05, 2024 Team Status: Inactive Member Role Status Dates Dr. Monika Staley MD Primary Care Provider Active Start: June 09, 2024 End: June 09, 2024 Carlos NOVAK Attending Provider Active Sta rt: June 09, 2024 End: June 09, 2024 Team Status: Inactive Member Role Status Dates Dr. Monika Staley MD Primary Care Provider Active Start: June 12, 2024 End: June 12, 2024 Dr. Kvng NOVAK MD Attending Provider Active Start: June 12, 2024 End: June 12, 2024 Team Status: Inactive Member Role Status Dates Dr. Monika Staley MD Primary Care Provider Active Start: June 16, 2024 End: June 16, 2024 Dr. Kvng NOVAK MD Attending Provider Active Start: June 16, 2024 End: June 16, 2024 Team Status: Inactive Member Role Status Dates Dr. Monika Staley MD Primary Care Provider Active Start: June 19, 2024 End: June 19, 2024 Dr. Kvng NOVAK MD Attending Provider Active Start: June 19, 2024 End: June 19, 2024 Team Status: Inactive Member Role Status Dates Dr. Monika Staley MD Primary Care Provider Active Start: June 23, 2024 End: June 23, 2024 Carlos NOVAK Attending Provider Active Sta rt: June 23, 2024 End: June 23, 2024 Team Status: Active Member Role Status Dates Dr. Monika Staley MD Primary Care Provider Active Start: June 26, 2024 Dr. Kvng NOVAK MD Attending Provider Active Start: June 26, 2024 Team Status: Inactive Member Role Status Dates Dr. Monika Staley MD Primary Care Provider Active Start: June 30, 2024 End: June 30, 2024 Dr. Kvng NOVAK MD Attending Provider Active Start: June 30, 2024 End: June 30, 2024 Team Status: Inactive Member Role Status Dates Dr. Monika Staley MD Primary Care Provider Active Start: July 03, 2024 End: July 03, 2024 Dr. Kvng NOVAK MD Attending Provider Active Start: July 03, 2024 End: July 03, 2024 Team Status: Inactive Member Role Status Dates Dr. Monika Staley MD Primary Care Provider Active Start: July 07, 2024 End: July 07, 2024 Karon NOVAK MD Attending Provider Active Start: July 07, 2024 End: July 07, 2024 Karon NOVAK MD Referring Provider Active Start: July 07, 2024 End: July 07, 2024 Team Status: Inactive Member Role Status Dates Dr. Monika Staley MD Primary Care Provider Active Start: July 11, 2024 End: July 11, 2024 Carlos NOVAK Attending Provider Active Sta rt: July 11, 2024 End: July 11, 2024 Team Status: Inactive Member Role Status Dates Dr. Monika Staley MD Primary Care Provider Active Start: July 14, 2024 End: July 14, 2024 Carlos NOVAK Attending Provider Active Sta rt: July 14, 2024 End: July 14, 2024 Team Status: Inactive Member Role Status Dates Dr. Monika Staley MD Primary Care Provider Active Start: July 17, 2024 End: July 17, 2024 Karon NOVAK MD Attending Provider Active Start: July 17, 2024 End: July 17, 2024 Karon NOVAK MD Referring Provider Active Start: July 17, 2024 End: July 17, 2024 Team Status: Inactive Member Role Status Dates Dr. Monika Staley MD Primary Care Provider Active Start: July 21, 2024 End: July 21, 2024 aKron NOVAK MD Attending Provider Active Start: July 21, 2024 End: July 21, 2024 Team Status: Inactive Member Role Status Dates Dr. Monika Staley MD Primary Care Provider Active Start: July 24, 2024 End: July 24, 2024 Karon NOVAK MD Attending Provider Active Start: July 24, 2024 End: July 24, 2024 Karon NOVAK MD Referring Provider Active Start: July 24, 2024 End: July 24, 2024 Team Status: Inactive Member Role Status Dates Dr. Monika Staley MD Primary Care Provider Active Start: July 25, 2024 End: July 25, 2024 Carlos NOVAK Attending Provider Active Sta rt: July 25, 2024 End: July 25, 2024 Team Status: Inactive Member Role Status Dates Dr. Monika Staley MD Primary Care Provider Active Start: July 28, 2024 End: July 28, 2024 Karon NOVAK MD Attending Provider Active Start: July 28, 2024 End: July 28, 2024 Team Status: Inactive Member Role Status Dates Dr. Monika Staley MD Primary Care Provider Active Start: July 31, 2024 End: July 31, 2024 Karon NOVAK MD Attending Provider Active Start: July 31, 2024 End: July 31, 2024 Karon NOVAK MD Referring Provider Active Start: July 31, 2024 End: July 31, 2024 Team Status: Inactive Member Role Status Dates Dr. Monika Staley MD Primary Care Provider Active Start: August 04, 2024 End: August 04, 2024 Carlos NOVAK Attending Provider Active Sta rt: August 04, 2024 End: August 04, 2024 Team Status: Inactive Member Role Status Dates Dr. Monika Staley MD Primary Care Provider Active Start: August 07, 2024 End: August 07, 2024 Carlos NOVAK Attending Provider Active Sta rt: August 07, 2024 End: August 07, 2024 Team Status: Inactive Member Role Status Dates Dr. Monika Staley MD Primary Care Provider Active Start: August 11, 2024 End: August 11, 2024 Karon NOVAK MD Attending Provider Active Start: August 11, 2024 End: August 11, 2024 Team Status: Inactive Member Role Status Dates Dr. Monika Staley MD Primary Care Provider Active Start: August 14, 2024 End: August 14, 2024 Karon NOVAK MD Attending Provider Active Start: August 14, 2024 End: August 14, 2024 Team Status: Inactive Member Role Status Dates Dr. Monika Staley MD Primary Care Provider Active Start: August 18, 2024 End: August 18, 2024 Karon NOVAK MD Attending Provider Active Start: August 18, 2024 End: August 18, 2024 Team Status: Inactive Member Role Status Dates Dr. Monika Staley MD Primary Care Provider Active Start: August 21, 2024 End: August 21, 2024 Karon NOVAK MD Attending Provider Active Start: August 21, 2024 End: August 21, 2024 Team Status: Inactive Member Role Status Dates Dr. Monika Staley MD Primary Care Provider Active Start: August 25, 2024 End: August 25, 2024 Karon NOVAK MD Attending Provider Active Start: August 25, 2024 End: August 25, 2024 Karon NOVAK MD Referring Provider Active Start: August 25, 2024 End: August 25, 2024 Team Status: Inactive Member Role Status Dates Dr. Monika Staley MD Primary Care Provider Active Start: August 28, 2024 End: August 28, 2024 Carlos NOVAK Attending Provider Active Sta rt: August 28, 2024 End: August 28, 2024 Team Status: Inactive Member Role Status Dates Dr. Monika Staley MD Primary Care Provider Active Start: September 01, 2024 End: September 01, 2024 Carlos NOVAK Attending Provider Active Sta rt: September 01, 2024 End: September 01, 2024 Team Status: Inactive Member Role Status Dates Dr. Monika Staley MD Primary Care Provider Active Start: September 04, 2024 End: September 04, 2024 Carlos NOVAK Attending Provider Active Sta rt: September 04, 2024 End: September 04, 2024 Team Status: Active Member Role Status Dates Dr. Monika Staley MD Primary Care Provider Active Start: September 08, 2024 Karon NOVAK MD Attending Provider Active Start: September 08, 2024 Team Status: Active Member Role Status Dates Dr. Monika Staley MD Primary Care Provider Active Start: September 11, 2024 Karon NOVAK MD Attending Provider Active Start: September 11, 2024 Team Status: Active Member Role Status Dates Dr. Monika Staley MD Primary Care Provider Active Start: September 15, 2024 Carlos NOVAK Attending Provider Active Sta rt: September 15, 2024 Team Status: Active Member Role Status Dates Dr. Monika Staley MD Primary Care Provider Active Start: September 18, 2024 Karon NOVAK MD Attending Provider Active Start: September 18, 2024 Team Status: Active Member Role Status Dates Dr. Monika Staley MD Primary Care Provider Active Start: September 22, 2024 Karon NOVAK MD Attending Provider Active Start: September 22, 2024 Team Status: Active Member Role Status Dates Dr. Monika Staley MD Primary Care Provider Active Start: September 25, 2024 Karon NOVAK MD Attending Provider Active Start: September 25, 2024 Team Status: Active Member Role Status Dates Dr. Monika Staley MD Primary Care Provider Active Start: September 30, 2024 Karon NOVAK MD Attending Provider Active Start: September 30, 2024 Team Status: Active Member Role Status Dates Dr. Monika Staley MD Primary Care Provider Active Start: October 02, 2024 Karon NOVAK MD Attending Provider Active Start: October 02, 2024 Team Status: Active Member Role Status Dates Dr. Monika Staley MD Primary Care Provider Active Start: May 22, 2024 Dr. Kvng NOVAK MD Attending Provider Active Start: May 22, 2024 Team Status: Inactive Member Role Status Dates Dr. Monika Staley MD Primary Care Provider Active Start: May 26, 2024 End: May 26, 2024 Carlos NOVAK Attending Provider Active Sta rt: May 26, 2024 End: May 26, 2024 Team Status: Inactive Member Role Status Dates Dr. Monika Staley MD Primary Care Provider Active Start: May 29, 2024 End: May 29, 2024 Dr. Kvng NOVAK MD Attending Provider Active Start: May 29, 2024 End: May 29, 2024 Team Status: Inactive Member Role Status Dates Dr. Monika Staley MD Primary Care Provider Active Start: June 02, 2024 End: June 02, 2024 Dr. Kvng NOVAK MD Attending Provider Active Start: June 02, 2024 End: June 02, 2024 Team Status: Active Member Role Status Dates Dr. Monika Staley MD Primary Care Provider Active Start: August 25, 2024 Karon NOVAK MD Attending Provider Active Start: August 25, 2024 Team Status: Active Member Role Status Dates Dr. Monika Staley MD Primary Care Provider Active Start: September 01, 2024 Carlos NOVAK Attending Provider Active Sta rt: September 01, 2024 Team Status: Active Member Role Status Dates Dr. Monika Staley MD Primary Care Provider Active Start: September 04, 2024 Carlos NOVAK Attending Provider Active Sta rt: September 04, 2024 Team Status: Inactive Member Role Status Dates Dr. Monika Staley MD Primary Care Provider Active Start: April 24, 2024 End: April 24, 2024 Dr. Kvng NOVAK MD Attending Provider Active Start: April 24, 2024 End: April 24, 2024 Dr. Kvng NOVAK MD Referring Provider Active Start: April 24, 2024 End: April 24, 2024 Team Status: Inactive Member Role Status Dates Dr. Monika Staley MD Primary Care Provider Active Start: April 28, 2024 End: April 28, 2024 Carlos NOVAK Attending Provider Active Sta rt: April 28, 2024 End: April 28, 2024 Team Status: Inactive Member Role Status Dates Dr. Monika Staley MD Primary Care Provider Active Start: May 01, 2024 End: May 01, 2024 Dr. Kvng NOVAK MD Attending Provider Active Start: May 01, 2024 End: May 01, 2024 Dr. Kvng NOVAK MD Referring Provider Active Start: May 01, 2024 End: May 01, 2024 Team Status: Inactive Member Role Status Dates Dr. Monika Staley MD Primary Care Provider Active Start: May 05, 2024 End: May 05, 2024 Dr. Kvng NOVAK MD Attending Provider Active Start: May 05, 2024 End: May 05, 2024 Team Status: Inactive Member Role Status Dates Dr. Monika Staley MD Primary Care Provider Active Start: May 08, 2024 End: May 08, 2024 Dr. Kvng NOVAK MD Attending Provider Active Start: May 08, 2024 End: May 08, 2024 Team Status: Inactive Member Role Status Dates Dr. Monika Staley MD Primary Care Provider Active Start: May 09, 2024 End: May 09, 2024 Dr. Kvng NOVAK MD Attending Provider Active Start: May 09, 2024 End: May 09, 2024 Dr. Kvng NOVAK MD Referring Provider Active Start: May 09, 2024 End: May 09, 2024 Team Status: Inactive Member Role Status Dates Dr. Monika Staley MD Primary Care Provider Active Start: May 12, 2024 End: May 12, 2024 Carlos NOVAK Attending Provider Active Sta rt: May 12, 2024 End: May 12, 2024 Team Status: Inactive Member Role Status Dates Dr. Monika Staley MD Primary Care Provider Active Start: May 15, 2024 End: May 15, 2024 Dr. Kvng NOVAK MD Attending Provider Active Start: May 15, 2024 End: May 15, 2024 Team Status: Active Member Role Status Dates Dr. Monika Staley MD Primary Care Provider Active Start: May 19, 2024 Dr. Kvng NOVAK MD Attending Provider Active Start: May 19, 2024 Dr. Kvng NOVAK MD Referring Provider Active Start: May 19, 2024 Team Status: Inactive Member Role Status Dates Dr. Monika Staley MD Primary Care Provider Active Start: May 20, 2024 End: May 20, 2024 Dr. Kvng NOVAK MD Attending Provider Active Start: May 20, 2024 End: May 20, 2024 Team Status: Active Member Role Status Dates Dr. Monika Staley MD Primary Care Provider Active Start: August 07, 2024 Carlos NOVAK Attending Provider Active Sta rt: August 07, 2024 Team Status: Active Member Role Status Dates Dr. Monika Staley MD Primary Care Provider Active Start: August 11, 2024 Karon NOVAK MD Attending Provider Active Start: August 11, 2024 Team Status: Active Member Role Status Dates Dr. Monika Staley MD Primary Care Provider Active Start: August 14, 2024 Karon NOVAK MD Attending Provider Active Start: August 14, 2024 Team Status: Active Member Role Status Dates Dr. Monika Staley MD Primary Care Provider Active Start: August 18, 2024 Karon NOVAK MD Attending Provider Active Start: August 18, 2024 Team Status: Active Member Role Status Dates Dr. Monika Staley MD Primary Care Provider Active Start: August 21, 2024 Karon NOVAK MD Attending Provider Active Start: August 21, 2024 Team Status: Active Member Role Status Dates Dr. Monika Staley MD Primary Care Provider Active Start: April 14, 2024 Dr. Kvng NOVAK MD Attending Provider Active Start: April 14, 2024 Team Status: Active Member Role Status Dates Dr. Monika Staley MD Primary Care Provider Active Start: April 17, 2024 Dr. Kvng NOVAK MD Attending Provider Active Start: April 17, 2024 Team Status: Inactive Member Role Status Dates Dr. Monika Staley MD Primary Care Provider Active Start: April 21, 2024 End: April 21, 2024 Carlos NOVAK Attending Provider Active Sta rt: April 21, 2024 End: April 21, 2024 Team Status: Active Member Role Status Dates Dr. Monika Staley MD Primary Care Provider Active Start: July 21, 2024 Karon NOVAK MD Attending Provider Active Start: July 21, 2024 Team Status: Active Member Role Status Dates Dr. Monika Staley MD Primary Care Provider Active Start: July 28, 2024 Karon NOVAK MD Attending Provider Active Start: July 28, 2024 Team Status: Active Member Role Status Dates Dr. Monika Staley MD Primary Care Provider Active Start: July 31, 2024 Karon NOVAK MD Attending Provider Active Start: July 31, 2024 Team Status: Active Member Role Status Dates Dr. 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 [employer] Mix[employer] Relationship Specialty Start Date End Date Mateus Burris [address] [place] [address] PCP - General Family Practice 11/12/19 Supervisor [employer] Relationship Specialty [place] [address] [place] [address] PCP - General Family Medicine 09/09/20 Supervisor [employer] Relationship Specialty [place] [address] [place] [address] PCP - General Family Medicine 09/09/20 Supervisor [employer] Relationship Specialty [place] [address] [place] [address] PCP - General Family Medicine 09/09/20 Supervisor [employer] Relationship Specialty Start Date End Date Carlos Cavazos MD [address] [place] [address] PCP - General Internal Medicine 02/20/22 Team Status: Inactive Member Role Status Dates Carlos Cavazos Attending Provider, Referring Provider Active Team Status: Inactive Member Role Status Dates Carlos Cavazos Attending Provider Active Team Status: Active Member Role Status Dates Carlos Cavazos Attending Provider Active Team Status: Active Member Role Status Dates Carlos NOVAK Attending Provider, Referring Provi lupillo Active Team Status: Active Member Role Status Dates Cliff NOVAK Attending Provider Active Team Status: Inactive Member Role Status Dates Cliff NOVAK Attending Provider Active Team Status: Inactive Member Role Status Dates Carlos NOVAK Attending Provider Active Dr. Monika Staley MD Primary Care Provider Active Supervisor [employer] Relationship Specialty Start Date End Date Carlos Cavazos [address] [place] [id number] PCP - General 12/21/21 Rebecca Buck MD [address] [address] Surgeon Urology 06/25/23 Team Status: Inactive Member Role Status Dates Carlos NOVAK Attending Provider, Referring Provi lupillo Active Dr. Monika Staley MD Primary Care Provider Active Team Status: Inactive Member Role Status Dates Dr. Monika Staley MD Primary Care Provider Active Carlos NOVAK Attending Provider Active Team Status: Active Member Role Status Dates Dr. Monika Staley MD Primary Care Provider Active Carlos NOVAK Attending Provider Active Team Status: Inactive Member Role Status Dates Dr. Monika Staley MD Primary Care Provider Active Carlos NOVAK Attending Provider, Referring Provi lupillo Active Supervisor [employer] Relationship Specialty Start Date End Date Carlos Cavazos [address] [place] [phone] PCP - General 12/21/21 Rebecca Buck MD [address] [address] Surgeon Urology 06/25/23 Supervisor [employer] Relationship Specialty Start Date End Date Carlos Cavazos [address] [place] [phone] PCP - General 12/21/21 Rebecca Buck MD [address] [address] Surgeon Urology 06/25/23 Supervisor [employer] Relationship Specialty Start Date End Date Carlos Cavazos [address] [place] [phone] PCP - General 12/21/21 Rebecca Buck MD [address] [address] Surgeon Urology 06/25/23 Supervisor [employer] Mix[employer] Relationship Specialty Start Date End Date Carlos Cavazos [address] [place] [phone] PCP - General 12/21/21 Rebecca Buck MD [address] [address] Surgeon Urology 06/25/23 Supervisor [employer] Mix[employer] Relationship Specialty Start Date End Date Carlos Cavazos [address] [place] [phone] PCP - General 12/21/21 Rebecca Buck MD [address] [address] Surgeon Urology 06/25/23 Supervisor Color [employer] Mix[employer] Relationship Specialty Start Date End Date Carlos Cavazos [address] [place] [phone] PCP - General 12/21/21 Rebecca Buck MD [address] [address] Surgeon Urology 06/25/23 Team Status: Inactive Member Role Status Dates Dr. Monika Staley MD Primary Care Provider Active Start: March 13, 2024 End: March 13, 2024 [facility] Attending Provider Active Start: March 13, 2024 End: March 13, 2024 Team Status: Inactive Member Role Status Dates Dr. Monika Staley MD Primary Care Provider Active Start: March 14, 2024 End: March 14, 2024 Carlos NOVAK Attending Provider Active Sta rt: March 14, 2024 End: March 14, 2024 Team Status: Inactive Member Role Status Dates Dr. Monika Staley MD Primary Care Provider Active Start: March 17, 2024 End: March 17, 2024 [facility] Attending Provider Active Start: March 17, 2024 End: March 17, 2024 Team Status: Inactive Member Role Status Dates Dr. Monika Staley MD Primary Care Provider Active Start: March 18, 2024 End: March 18, 2024 [facility] Attending Provider Active Start: March 18, 2024 End: March 18, 2024 Team Status: Inactive Member Role Status Dates Dr. Monika Staley MD Primary Care Provider Active Start: March 19, 2024 End: March 19, 2024 Dr. Kvng NOVAK MD Attending Provider Active Start: March 19, 2024 End: March 19, 2024 Dr. Kvng NOVAK MD Referring Provider Active Start: March 19, 2024 End: March 19, 2024 Team Status: Inactive Member Role Status Dates Dr. Monika Staley MD Primary Care Provider Active Start: March 20, 2024 End: March 20, 2024 [facility] Attending Provider Active Start: March 20, 2024 End: March 20, 2024 Team Status: Inactive Member Role Status Dates Dr. Monika Staley MD Primary Care Provider Active Start: March 24, 2024 End: March 24, 2024 Dr. Kvng NOVAK MD Attending Provider Active Start: March 24, 2024 End: March 24, 2024 Team Status: Inactive Member Role Status Dates Dr. Monika Staley MD Primary Care Provider Active Start: March 27, 2024 End: March 27, 2024 [facility] Attending Provider Active Start: March 27, 2024 End: March 27, 2024 Team Status: Inactive Member Role Status Dates Dr. Monika Staley MD Primary Care Provider Active Start: March 31, 2024 End: March 31, 2024 Carlos NOVAK Attending Provider Active Sta rt: March 31, 2024 End: March 31, 2024 Team Status: Active Member Role Status Dates Dr. Monika Staley MD Primary Care Provider Active Start: April 04, 2024 Dr. Kvng NOAVK MD Attending Provider Active Start: April 04, 2024 Team Status: Inactive Member Role Status Dates Dr. Monika Staley MD Primary Care Provider Active Start: April 07, 2024 End: April 07, 2024 Carlos NOVAK Attending Provider Active Sta rt: April 07, 2024 End: April 07, 2024 Team Status: Inactive Member Role Status Dates Dr. Monika Staley MD Primary Care Provider Active Start: April 10, 2024 End: April 10, 2024 Dr. Kvng NOVAK MD Attending Provider Active Start: April 10, 2024 End: April 10, 2024 Team Status: Active Member Role Status Dates Dr. Monika Staley MD Primary Care Provider Active Start: May 26, 2024 Carlos NOVAK Attending Provider Active Sta rt: May 26, 2024 Team Status: Active Member Role Status Dates Dr. Monika Staley MD Primary Care Provider Active Start: May 29, 2024 Dr. Kvng NOVAK MD Attending Provider Active Start: May 29, 2024 Team Status: Active Member Role Status Dates Dr. Monika Staley MD Primary Care Provider Active Start: June 02, 2024 Dr. Kvng NOVAK MD Attending Provider Active Start: June 02, 2024 Team Status: Active Member Role Status Dates Dr. Monika Staley MD Primary Care Provider Active Start: June 09, 2024 Carlos NOVAK Attending Provider Active Sta rt: June 09, 2024 Team Status: Active Member Role Status Dates Dr. Monika Staley MD Primary Care Provider Active Start: June 12, 2024 Dr. Kvng NOVAK MD Attending Provider Active Start: June 12, 2024 Team Status: Active Member Role Status Dates Dr. Monika Staley MD Primary Care Provider Active Start: June 16, 2024 Dr. Kvng NOVAK MD Attending Provider Active Start: June 16, 2024 Team Status: Active Member Role Status Dates Dr. Monika Staley MD Primary Care Provider Active Start: June 19, 2024 Dr. Kvng NOVAK MD Attending Provider Active Start: June 19, 2024 Team Status: Active Member Role Status Dates Dr. Monika Staley MD Primary Care Provider Active Start: June 23, 2024 Carlos NOVAK Attending Provider Active Sta rt: June 23, 2024 Team Status: Active Member Role Status Dates Dr. Monika Staley MD Primary Care Provider Active Start: June 30, 2024 Dr. Kvng NOVAK MD Attending Provider Active Start: June 30, 2024 Team Status: Active Member Role Status Dates Dr. Monika Staley MD Primary Care Provider Active Start: July 03, 2024 Dr. Kvng NOVAK MD Attending Provider Active Start: July 03, 2024 Team Status: Active Member Role Status Dates Dr. Monika Staley MD Primary Care Provider Active Start: July 07, 2024 [facility] Attending Provider Active Start: July 07, 2024 Team Status: Active Member Role Status Dates Dr. Monika Staley MD Primary Care Provider Active Start: July 11, 2024 Carlos NOVAK Attending Provider Active Sta rt: July 11, 2024 Team Status: Active Member Role Status Dates Dr. Monika Staley MD Primary Care Provider Active Start: July 07, 2024 Karon NOVAK MD Attending Provider Active Start: July 07, 2024 Karon NOVAK MD Referring Provider Active Start: July 07, 2024 Team Status: Active Member Role Status Dates Dr. Monika Staley MD Primary Care Provider Active Start: July 14, 2024 Carlos NOVAK Attending Provider Active Sta rt: July 14, 2024 Team Status: Active Member Role Status Dates Dr. Monika Staley MD Primary Care Provider Active Start: July 17, 2024 Karon NOVAK MD Attending Provider Active Start: July 17, 2024 Karon NOVAK MD Referring Provider Active Start: July 17, 2024 Team Status: Active Member Role Status Dates Dr. Monika Staley MD Primary Care Provider Active Start: July 24, 2024 Karon NOVAK MD Attending Provider Active Start: July 24, 2024 Karon NOVAK MD Referring Provider Active Start: July 24, 2024 Team Status: Active Member Role Status Dates Dr. Monika Staley MD Primary Care Provider Active Start: July 25, 2024 Carlos NOVAK Attending Provider Active Sta rt: July 25, 2024 Team Status: Active Member Role Status Dates Dr. Monika Staley MD Primary Care Provider Active Start: July 31, 2024 Karon NOVAK MD Attending Provider Active Start: July 31, 2024 Karon NOVAK MD Referring Provider Active Start: July 31, 2024 Team Status: Active Member Role Status Dates Dr. Monika Staley MD Primary Care Provider Active Start: August 28, 2024 Carlos NOVAK Attending Provider Active Sta rt: August 28, 2024 Team Status: Inactive Member Role Status Dates Dr. Monika Staley MD Primary Care Provider Active Start: September 15, 2024 End: September 15, 2024 Carlos NOVAK Attending Provider Active Sta rt: September 15, 2024 End: September 15, 2024 Ordered Prescriptions (unrec ognized section and content) Prescription Sig Dispensed Refills Start Date End Da te warfarin (COUMADIN) 6 MG tablet Take 1 tablet by mouth daily 30 tablet 3 10/29/2021 levETIRAcetam (KEPPRA) 750 MG tablet Take 1 tablet by mouth 2 times daily 60 tablet 3 10/29/2021 Prescription Sig Dispensed Refills Start Date End Da te tamsulosin (FLOMAX) 0.4 MG capsule Take 1 capsule by mouth daily 30 capsule 0 11/01/2021 Scheduled Active and Recently Administ ered Medications (unrecognized section and content) Medication Order 10/27/2021 10/28/2021 10/29/2021 baclofen (LIORESAL) tablet 10 mg 10 mg, Oral, 3 TIMES DAILY, First dose on Sun10/21/21 at 0900, Until Discontinued 911 (Given - Provider: Rosanne Hoff RN)1437 (Given - Provider: Rosanne Hoff RN)2035 (Given - Provider: Katlin Julio RN) 0816 (Given - Provider: Rosanne Hoff RN)1355 (Given - Provider: Rosanne Hoff RN)1926 (Given - Provider: Lisa Ashby RN) 1024 (Given - Provider: Fabi Subramanian RN)1547 (Given - Provider: Cliff Isidro RN)2100 (Due) bumetanide (BUMEX) tablet 2 mg 2 mg, Oral, DAILY, First dose on Sun10/21/21 at 0900, Until Discontinued 910 (Given - Provider: Rosanne Hoff RN) 08 (Given - Provider: Rosanne Hoff RN) 102 (Given - Provider: Fabi Subramanian RN) enoxaparin (LOVENOX) injection 105 mg (CANCELED) 105 mg (rounded from 108.9 mg = 1 mg/kg 108.9 kg), SubCUTAneous, 2 TIMES DAILY, First dose on Sun10/21/21 at 0900, Until Discontinued, Indication of Use: Prophylaxis-DVT/PE 910 (Given - Provider: Rosanne Hoff RN)2035 (Given - Provider: Katlin Julio RN) 08 (Given - Provider: Rosanne Hoff RN) levETIRAcetam (KEPPRA) 750 mg in sodium chloride 0.9 % 100 mL IVPB 750 mg, IntraVENous, 2 times daily, First dose on Sun10/26/21 at 2000, Until Discontinued 911 (New Bag - Provider: Rosanne Hoff RN)102 (Stopped - Provider: Rsoanne Hoff RN)2034 (New Bag - Provider: Katlin Julio RN)2103 (Stopped - Provider: Katlin Julio RN) 0816 (New Bag - Provider: Rosanne Hoff RN)0953 (Stopped - Provider: Rosanne Hoff RN)2055 (New Bag - Provider: Lisa Ashby RN)214 (Stopped - Provider: Lisa Ashby RN) 1026 (New Bag - Provider: Fabi Subramanian, AYUSH)1150 (Stopped - Provider: Fabi Subramanian RN)2100 (Due) potassium chloride (KLOR-CON M) extended release tablet 20 mEq 20 mEq, Oral, DAILY, First dose on Sun10/21/21 at 0900, Until Discontinued, Do not crush, chew, or suck on tablet. Tablet may also be broken in half and each half swallowed separately. 910 (Given - Provider: Rosanne Hoff RN) 816 (Given - Provider: Rosanne Hoff RN) 102 (Given - Provider: Fabi Subramanian RN) sodium chloride flush 0.9 % injection 5-40 mL 5-40 mL, IntraVENous, EVERY 12 HOURS SCHEDULED (2 times per day), First dose on Sun10/21/21 at 0900, Until Discontinued, For Line Patency: Peripheral IV = 5 mL; Midline or Central Line = 10 mL/lumen. If following IV push medication, administer flush at same rate as the IV push. Flush volume is determined by type of infusion therapy being given. For non-viscous solutions use: Peripheral IV = 5 mL Midline or Central Line = 10 mL/lumen For viscous solutions (i.e. blood components, parenteral nutrition, contrast media, or after obtaining blood sample) use: Peripheral IV = 10 mL Midline or Central Line = 20 mL/lumen 0912 (Given - Provider: Rosanne Hoff RN)2035 (Given - Provider: Katlin Julio RN) 0816 (Given - Provider: Rosanne Hoff RN)1927 (Given - Provider: Lisa Ashby RN) 1027 (Given - Provider: Fabi Subramanian RN)2100 (Due) warfarin (COUMADIN) tablet 7.5 mg (COMPLETED) 7.5 mg, Oral, ONCE Warfarin, 1 dose, On Windy 10/27/21 at 1800, Indication of Use: Treatment-DVT/PE, History of DVT/PE (indefinite), What is the patient's goal INR? 2.0 - 3.0, Review INR prior to administration. Hazardous med- See facility policy for handling/disposal 1811 (Given - Provider: Rosanne Hoff RN) warfarin (COUMADIN) tablet 7.5 mg 7.5 mg, Oral, ONCE Warfarin, 1 dose, On [facility] 10/29/21 at 1800, Indication of Use: Treatment-DVT/PE, What is the patient's goal INR? 2.0 - 3.0, Review INR prior to administration. Hazardous med- See facility policy for handling/disposal 1800 (Due) PRN Medication Order 10/27/2021 10/28/2021 10/29/2021 0.9 % sodium chloride infusion IntraVENous, at 5-250 mL/hr, PRN, if patient receiving piggyback infusions and maintenance fluids are not ordered OR KVO fluids to protect IV site / prevent frequent line interruptions/ long duration, Starting on Sun10/21/21 at 0356, For piggyback infusion, administer at same rate as piggyback for a total of 25 mL. Enter 25 mL into dose field and piggyback rate into rate field of order. If piggyback is infusing at a rate less than 100 mL/hr, enter 25 mL into dose field and 100 mL/hr into rate field of order. For KVO fluids, enter rate of 20 mL/hr or less into rate field of order. acetaminophen (TYLENOL) suppository 650 mg(Linked Group 1) 650 mg, Rectal, EVERY 6 HOURS PRN, Starting on Sun10/21/21 at 0356, Until Discontinued, Pain Mild (1-3), Fever, For temp greater than 100.4 F (38 C), Administer if oral route cannot be used. acetaminophen (TYLENOL) tablet 650 mg(Linked Group 1) 650 mg, Oral, EVERY 6 HOURS PRN, Starting on Sun10/21/21 at 0356, Until Discontinued, Pain Mild (1-3), Fever, For temp greater than 100.4 F (38 C), Maximum dose of acetaminophen is 4000 mg from all sources in 24 hours. aluminum & magnesium hydroxide-simethicone (MAALOX) 200-200-20 MG/5ML suspension 30 mL 30 mL, Oral, EVERY 6 HOURS PRN, Starting on Sun10/21/21 at 0400, Until Discontinued, Indigestion ipratropium-albuterol (DUONEB) nebulizer solution 1 ampule 1 ampule, Inhalation, 4 TIMES DAILY PRN, Starting on Sun10/22/21 at 1330, Until Discontinued, Shortness of Breath, Initiate RT Bronchodilator Protocol: No ondansetron (ZOFRAN) injection 4 mg(Linked Group 2) 4 mg, IntraVENous, EVERY 6 HOURS PRN, Starting on Sun10/21/21 at 0356, Until Discontinued, Nausea, Vomiting, Administer if oral route cannot be used. ondansetron (ZOFRAN-ODT) disintegrating tablet 4 mg(Linked Group 2) 4 mg, Oral, EVERY 8 HOURS PRN, Starting on Sun10/21/21 at 0356, Until Discontinued, Nausea, Vomiting polyethylene glycol (GLYCOLAX) packet 17 g 17 g, Oral, DAILY PRN, Starting on Sun10/21/21 at 0356, Until Discontinued, Constipation, First line therapy for constipation potassium bicarb-citric acid (EFFER-K) effervescent tablet 40 mEq(Linked Group 3) 40 mEq, Oral, PRN, Starting on Sun10/21/21 at 0356, Until Discontinued, Per Potassium Replacement Protocol, Administer as alternative if patient unable to tolerate oral tablet. K Lab Replacement Action 3.1 to 3.5 40 mEq ORAL x 1 Under 3.1 Refer to IV replacement protocol Recheck K level in AM. Protocol not for use in patients with CrCl less than 30 mL/min. Do not chew or crush. Dissolve flavored tablets completely in 3 to 4 ounces of cold water; unflavored tablets may be dissolved in 3 to 4 ounces of cold juice. Patient to sip slowly over a 5 to 10 minute period. May further dilute if GI adverse effects occur. potassium chloride (KLOR-CON M) extended release tablet 40 mEq(Linked Group 3) 40 mEq, Oral, PRN, Starting on Sun10/21/21 at 0356, Until Discontinued, Potassium Replacement, May give alternative linked oral order (ordered as effervescent, packet, or liquid solution) if patient unable to tolerate tablet. K Lab Replacement Action 3.1 to 3.5 40 mEq ORAL x 1 Under 3.1 Refer to IV replacement protocol Recheck K level in AM. Protocol not for use in patients with CrCl less than 30 mL/min. potassium chloride 10 mEq/100 mL IVPB (Peripheral Line)(Linked Group 3) 10 mEq, IntraVENous, PRN, Starting on Sun10/21/21 at 0356, Until Discontinued, at 100 mL/hr, Potassium Replacement, K Lab Replacement Action 2.7 to 3.0 10 mEq IVPB x 6 doses (60 mEq Total) Under 2.7 CALL PROVIDER and administer 10 mEq IVPB x 6 doses (60 mEq Total) Infuse at 10 mEq/hr. Repeat Potassium lab 1 hour after final administration. Protocol not for use in patients with CrCl less than 30 mL/min. sodium chloride flush 0.9 % injection 5-40 mL 5-40 mL, IntraVENous, PRN, Starting on Sun10/21/21 at 0356, Until Discontinued, Line Care, After every IV line use, For Line Patency: Peripheral IV = 5 mL; Midline or Central Line = 10 mL/lumen. If following IV push medication, administer flush at same rate as the IV push. Flush volume is determined by type of infusion therapy being given. For non-viscous solutions use: Peripheral IV = 5 mL Midline or Central Line = 10 mL/lumen For viscous solutions (i.e. blood components, parenteral nutrition, contrast media, or after obtaining blood sample) use: Peripheral IV = 10 mL Midline or Central Line = 20 mL/lumen Linked Groups Order Group 1: acetaminophen (TYLENOL) tablet 650 mgJump to med 650 mg, Oral, EVERY 6 HOURS PRN, Starting on Sun10/21/21 at 0356, Until Discontinued, Pain Mild (1-3), Fever, For temp greater than 100.4 F (38 C)
Maximum dose of acetaminophen is 4000 mg from all sources in 24 hours.
Or acetaminophen (TYLENOL) suppository 650 mgJump to med 650 mg, Rectal, EVERY 6 HOURS PRN, Starting on Sun10/21/21 at 0356, Until Discontinued, Pain Mild (1-3), Fever, For temp greater than 100.4 F (38 C)
Administer if oral route cannot be used.
Group 2: ondansetron (ZOFRAN-ODT) disintegrating tablet 4 mgJump to med 4 mg, Oral, EVERY 8 HOURS PRN, Starting on Sun10/21/21 at 0356, Until Discontinued, Nausea, Vomiting Or ondansetron (ZOFRAN) injection 4 mgJump to med 4 mg, IntraVENous, EVERY 6 HOURS PRN, Starting on Sun10/21/21 at 0356, Until Discontinued, Nausea, Vomiting
Administer if oral route cannot be used.
Group 3: potassium chloride (KLOR-CON M) extended release tablet 40 mEqJump to med 40 mEq, Oral, PRN, Starting on Sun10/21/21 at 0356, Until Discontinued, Potassium Replacement
May give alternative linked oral order (ordered as effervescent, packet, or liquid solution) if patient unable to tolerate tablet. K Lab Repla cemen t Action 3.1 to 3.5 40 mEq ORAL x 1 Under 3.1 Refer to IV replacement protocol Recheck K level in AM. Protocol not for use in patients with CrCl less than 30 mL/min.
Or potassium bicarb-citric acid (EFFER-K) effervescent tablet 40 mEqJump to med 40 mEq, Oral, PRN, Starting on Sun10/21/21 at 0356, Until Discontinued, Per Potassium Replacement Protocol
Administer as alternative if patient unable to tolerate oral tablet. K Lab Repla cemen t Action 3.1 to 3.5 40 mEq ORAL x 1 Under 3.1 Refer to IV replacement protocol Recheck K level in AM. Protocol not for use in patients with CrCl less than 30 mL/min. Do not chew or crush. Dissolve flavored tablets completely in 3 to 4 ounces of cold water; unflavored tablets may be dissolved in 3 to 4 ounces of cold juice. Patient to sip slowly over a 5 to 10 minute period. May further dilute if GI adverse effects occur.
Or potassium chloride 10 mEq/100 mL IVPB (Peripheral Line)Jump to med 10 mEq, IntraVENous, PRN, Starting on Sun10/21/21 at 0356, Until Discontinued, at 100 mL/hr, Potassium Replacement
K Lab Replacement Action 2.7 to 3.0 10 mEq IVPB x 6 doses (60 mEq Total) Under 2.7 CALL PROVIDER and administer 10 mEq IVPB x 6 doses (60 mEq Total) Infuse at 10 mEq/hr. Repeat Potassium lab 1 hour after final administration. Protocol not for use in patients with CrCl less than 30 mL/min.
Scheduled Medication Order 10/30/2021 10/31/2021 11/01/2021 sodium chloride flush 0.9 % injection 3 mL(Linked Group 1) 3 mL, IntraVENous, EVERY 8 HOURS, First dose on Sun10/31/21 at 2014, Until Discontinued, Flush line with 3-5 mL 0058 (Given - Provid er: Isaura Cabrales RN - Comment: MIKE)0415 (Due)1215 (Due)2014 (Due) tamsulosin (FLOMAX) capsule 0.4 mg 0.4 mg, Oral, DAILY, First dose on Sun11/01/21 at 0900, Until Discontinued, Do not crush or break. 0900 (Due) Linked Groups Order Group 1: Saline lock IV (COMPLETED) Routine, CONTINUOUS, Starting on Sun10/31/21 at 2014, Until Specified And sodium chloride flush 0.9 % injection 3 mLJump to med 3 mL, IntraVENous, EVERY 8 HOURS, First dose on Sun10/31/21 at 2014, Until Discontinued
Flush line with 3-5 mL
Scheduled Medication Order 12/20/2021 12/21/2021 12/22/2021 sodium chloride flush 0.9 % injection 3 mL(Linked Group 1) 3 mL, IntraVENous, EVERY 8 HOURS, First dose on [place]y 12/22/21 at 0000, Until Discontinued, Flush line with 3-5 mL 0000 (Due)0800 (Due) 1600 (Due) Linked Groups Order Group 1: Saline lock IV Routine, CONTINUOUS, Starting on [place]y 12/22/21 at 0000, Until Specified And sodium chloride flush 0.9 % injection 3 mLJump to med 3 mL, IntraVENous, EVERY 8 HOURS, First dose on [place]y 12/22/21 at 0000, Until Discontinued
Flush line with 3-5 mL
Goals (unrecognized section and content) Goals may be documented in a n alternate sectionGoals may be documented in an alternate sectionGoals may be documented in an alternate sectionGoals may be documented in an alternate sectionGoals may be documented in an alternate sectionGoals may be documented in an alternate sectionGoals may be documented in an alternate sectionGoals may be documented in an alternate sectionGoals may be documented in an alternate sectionGoals may be documented in an alternate sectionGoals may be documented in an alternate sectionGoals may be documented in an alternate sectionGoals may be documented in an alternate sectionGoals may be documented in an alternate sectionGoals may be documented in an alternate sectionGoals may be documented in an alternate sectionGoals may be documented in an alternate sectionGoals may be documented in an alternate sectionGoals may be documented in an alternate sectionGoals may be documented in an alternate sectionGoals may be documented in an alternate sectionGoals may be documented in an alternate sectionGoals may be documented in an alternate sectionGoals may be documented in an alternate sectionGoals may be documented in an alternate sectionGoals may be documented in an alternate sectionGoals may be documented in an alternate sectionGoals may be documented in an alternate sectionGoals may be documented in an alternate sectionGoals may be documented in an alternate sectionGoals may be documented in an alternate sectionGoals may be documented in an alternate sectionGoals may be documented in an alternate sectionGoals may be documented in an alternate sectionGoals may be documented in an alternate sectionGoals may be documented in an alternate sectionGoals may be documented in an alternate sectionGoals may be documented in an alternate sectionGoals may be documented in an alternate sectionGoals may be documented in an alternate sectionGoals may be documented in an alternate sectionGoals may be documented in an alternate sectionGoals may be documented in an alternate sectionGoals may be documented in an alternate sectionGoals may be documented in an alternate sectionGoals may be documented in an alternate sectionGoals may be documented in an alternate sectionGoals may be documented in an alternate sectionGoals may be documented in an alternate sectionGoals may be documented in an alternate sectionGoals may be documented in an alternate sectionGoals may be documented in an alternate sectionGoals may be documented in an alternate sectionGoals may be documented in an alternate sectionGoals may be documented in an alternate sectionGoals may be documented in an alternate sectionGoals may be documented in an alternate sectionGoals may be documented in an alternate sectionGoals may be documented in an alternate sectionGoals may be documented in an alternate sectionGoals may be documented in an alternate sectionGoals may be documented in an alternate sectionGoals may be documented in an alternate sectionGoals may be documented in an alternate sectionGoals may be documented in an alternate sectionGoals may be documented in an alternate sectionGoals may be documented in an alternate sectionGoals may be documented in an alternate sectionGoals may be documented in an alternate sectionGoals may be documented in an alternate sectionGoals may be documented in an alternate sectionGoals may be documented in an alternate sectionGoals may be documented in an alternate sectionGoals may be documented in an alternate sectionGoals may be documented in an alternate sectionGoals may be documented in an alternate sectionGoals may be documented in an alternate sectionGoals may be documented in an alternate sectionGoals may be documented in an alternate sectionGoals may be documented in an alternate sectionGoals may be documented in an alternate sectionGoals may be documented in an alternate sectionGoals may be documented in an alternate sectionGoals may be documented in an alternate sectionGoals may be documented in an alternate sectionGoals may be documented in an alternate sectionGoals may be documented in an alternate sectionGoals may be documented in an alternate sectionGoals may be documented in an alternate sectionGoals may be documented in an alternate sectionGoals may be documented in an alternate sectionGoals may be documented in an alternate sectionGoals may be documented in an alternate sectionGoals may be documented in an alternate sectionGoals may be documented in an alternate sectionGoals may be documented in an alternate sectionGoals may be documented in an alternate sectionGoals may be documented in an alternate sectionGoals may be documented in an alternate sectionGoals may be documented in an alternate sectionGoals may be documented in an alternate sectionGoals may be documented in an alternate sectionGoals may be documented in an alternate section FOR RECORDS PERTAINING TO PATIENTS WHO ARE OR HAVE BEEN ENROLLED IN A CHEMICAL DEPENDENCY/SUBSTANCEABUSE PROGRAM, SOME INFORMATION MAY BE OMITTED. This clinical summary was aggregated from multiple sources. Caution should be exercised in using it in the provision of clinical care. This summary normalizes information from multiple sources, and as a consequence, information in this document may materially change the coding, format and clinical context of patient data. In addition, data may be omitted in some cases. CLINICAL DECISIONS SHOULD BE BASED ON THE PRIMARY CLINICAL RECORDS. [facility] [employer] [facility]. provides no warranty or guarantee of the accuracy or completeness of information in this document.
[2024-10-16 09:29] LABS: International Normalized Ratio 2.8; Prothrombin Time (Protime)PT. 30.4 SECONDS (11.7-14.9)
== END ==
LOC: OLS.SANC 05:00
PROVIDERS: PCP General Practice
DX: Z79.01 Long term (current) use of 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 (principal)
CPT/HCPCS: 36415; 85610

== ENCOUNTER → 2024-10-20 | Outpatient (REF) | payer MEDICARE, MEDICAID, SELFPAY ==
[2024-10-20 10:35] LABS: International Normalized Ratio 3.1; Prothrombin Time (Protime)PT. 32.8 SECONDS (11.7-14.9)
== END ==
LOC: OLS.SANC 04:00
PROVIDERS: PCP General Practice
DX: Z79.01 Long term (current) use of 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 (principal)
CPT/HCPCS: 36415; 85610

== ENCOUNTER → 2024-10-23 | Outpatient (REF) | payer MEDICARE, MEDICAID, SELFPAY ==
[2024-10-23 08:20] LABS: International Normalized Ratio 2.5; Prothrombin Time (Protime)PT. 27.9 SECONDS (11.7-14.9)
== END ==
LOC: OLS.SANC 05:00
PROVIDERS: PCP General Practice
DX: Z79.01 Long term (current) use of 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 (principal)
CPT/HCPCS: 36415; 85610

== ENCOUNTER → 2024-10-27 | Outpatient (REF) | payer MEDICARE, MEDICAID, SELFPAY ==
[2024-10-27 08:55] LABS: International Normalized Ratio 2.2; Prothrombin Time (Protime)PT. 24.5 SECONDS (11.7-14.9)
== END ==
LOC: OLS.SANC 04:00
PROVIDERS: PCP General Practice
DX: Z79.01 Long term (current) use of 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 (principal)
CPT/HCPCS: 36415; 85610

== ENCOUNTER → 2024-10-30 | Outpatient (REF) | payer MEDICARE, MEDICAID, SELFPAY ==
[2024-10-30 09:21] LABS: International Normalized Ratio 2.4; Prothrombin Time (Protime)PT. 26.3 SECONDS (11.7-14.9)
== END ==
LOC: OLS.SANC 06:35
PROVIDERS: PCP General Practice
DX: Z79.01 Long term (current) use of 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 (principal)
CPT/HCPCS: 36415; 85610

== ENCOUNTER → 2024-11-03 | Outpatient (REF) | payer MEDICARE, MEDICAID, SELFPAY ==
[2024-11-03 09:08] LABS: Prothrombin Time (Protime)PT. 31.4 SECONDS (11.7-14.9)
== END ==
LOC: OLS.SANC 05:00
PROVIDERS: PCP General Practice; Visit Provider Internal Medicine
DX: Z79.01 Long term (current) use of 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 (principal)
CPT/HCPCS: 36415; 85610

== ENCOUNTER → 2024-11-06 | Outpatient (REF) | payer MEDICARE, MEDICAID, SELFPAY ==
[2024-11-06 09:00] LABS: Prothrombin Time (Protime)PT. 33.0 SECONDS (11.7-14.9)
== END ==
LOC: OLS.SANC 04:00
PROVIDERS: PCP General Practice
DX: Z79.01 Long term (current) use of 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 (principal)
CPT/HCPCS: 36415; 85610

== ENCOUNTER → 2024-11-10 04:00 | Outpatient (REF) | payer MEDICARE, MEDICAID, SELFPAY ==
[2024-11-10 09:22] LABS: Prothrombin Time (Protime)PT. 28.7 SECONDS (11.7-14.9)
== END ==
LOC: OLS.SANC 04:00
PROVIDERS: PCP General Practice
DX: Z79.01 Long term (current) use of 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 (principal)
CPT/HCPCS: 36415; 85610

== ENCOUNTER → 2024-11-13 05:00 | Outpatient (REF) | payer MEDICARE, MEDICAID, SELFPAY ==
[2024-11-13 10:10] LABS: Prothrombin Time (Protime)PT. 24.7 SECONDS (11.7-14.9)
== END ==
LOC: OLS.SANC 05:00
PROVIDERS: PCP General Practice
DX: Z79.01 Long term (current) use of 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 (principal)
CPT/HCPCS: 36415; 85610

== ENCOUNTER → 2024-11-17 05:00 | Outpatient (REF) | payer MEDICARE, MEDICAID, SELFPAY ==
--- OUTSIDE RECORDS SUMMARY | 2024-11-17 04:28 | XMS RPT_ITS | CCD ---
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 Monika Horner Primary Care Provider [facility] Attending Provider [phone] Carlos Nelson Attending Provider Jonh Pascual MD, [...] Crisostomo MD, Dr. Calderon Referring Provider Unava ilCarlos Anglin Attending Provider Jonh Cardoza MD, Dr. Monika Horner Primary Care Provider Andressa VALLADARES, Dr. Calderon Attending Provider Jany Staley MD, Dr. Monika Horner Primary Care Provider Andressa VALLADARES, Dr. Calderon Attending Provider Jany Staley MD, Dr. Monika Horner Primary Care Provider Andressa VALLADARES, Dr. Calderon Attending Provider Jeanineva Carlos Barnes Attending Provider Jonh Cardoza MD, Dr. Monika Horner Primary Care Provider Andressa VALLADARES, Dr. Calderon Attending Provider Carlos Calderon Attending Provider Jonh Cardoza MD, Dr. Monika Horner Primary Care Provider Andressa VALLADARES, Dr. Calderon Attending Provider Jany Staley MD, Dr. Monika Horner Primary Care Provider Carlos Nelson Attending Provider Unavailab Carlos Virgen Attending Unavailable Luís, Shiela Primary Care Unavailable [facility] [place] Attending Tricia Staley, Shiela Primary Care Unavailable Carlos Nelson Attending Unavailable Luís, Shiela Primary Care Unavailable Kvng Sen Referring Unavailable Kvng Sen Attending Unavailable Luís, Shiela Primary Care Unavailable KatCarlos Flood Attending Unavailable Luís, Shiela Primary Care Unavailable Karon Shah Attending Unavail able Luís, Shiela Primary Care Unavailable KatsaCarlos Villavicencio Attending Unavailable Luís, Shiela Primary Care Unavailable [facility] [place] Attending Unaalexandra Eliasrt, Shiela Primary Care Unavailable [facility] [place] Attending Tricia Eliasrt, [facility] Primary Care Unavailable Kvng Sen Attending Unavailable Luís, Shiela Primary Care Unavailable [facility] [place] Attending Unavai lable Luís, Shiela Primary Care Unavailable Katsaros OLS, Peter Referring Unavailable Katsaros OLS, Peter Attending Unavailable Luís, Shiela Primary Care Unavailable Crisostomo OLS, Kvng Attending Unavailable Luís, Shiela Primary Care Unavailable Crisostomo OLS, Elizabethet Attending Unavailable Luís, Shiela Primary Care Unavailable Mukkamalla OLS, Carlaaveer Referring Unavail able Mukkamalla OLS, Carlaaveer Attending Unavail able Luís, Shiela Primary Care Unavailable Katsaros OLS, Peter Attending Unavailable Luís, Shiela Primary Care Unavailable [facility] [place] Attending Unavai lable Luís, Shiela Primary Care Unavailable Katsaros OLS, Peter Attending Unavailable Luís, Shiela Primary Care Unavailable Katsaros OLS, Peter Attending Unavailable Luís, Shiela Primary Care Unavailable Katsaros OLS, Peter Attending Unavailable Luís, Shiela Primary Care Unavailable [facility] [place] Attending Unavai lable Luís, Shiela Primary Care Unavailable Katsaros OLS, Peter Attending Unavailable Luís, Shiela Primary Care Unavailable Mukkamalla OLS, Karon Attending Unavail able Luís, Shiela Primary Care Unavailable Mukkamalla OLS, Karon Attending Unavail able Luís, Shiela Primary Care Unavailable Mukkamalla OLS, Karon Attending Unavail able Luís, Shiela Primary Care Unavailable Mukkamalla OLS, Karon Attending Unavail able Luís, Shiela Primary Care Unavailable Mukkamalla OLS, Karon Referring Unavail able Mukkamalla OLS, Karon Attending Unavail able Luís, Shiela Primary Care Unavailable Katsaros OLS, Peter Attending Unavailable Luís, Shiela Primary Care Unavailable Katsaros OLS, Peter Attending Unavailable Luís, Shiela Primary Care Unavailable Katsaros OLS, Peter Attending Unavailable Luís, Shiela Primary Care Unavailable Mukkamalla OLS, Melindaer Attending Unavail able Mukkamalla OLS, Melindaer Referring Unavail able Luís, Shiela Primary Care Unavailable [place]kamalla OLS, Melindaer Attending Unavail able Luís, Shiela Primary Care Unavailable Katsaros OLS, Peter Attending Unavailable Luís, Shiela Primary Care Unavailable Mukkamalla OLS, Melindaer Attending Unavail able Luís, Shiela Primary Care Unavailable Mukkamalla OLS, Melindaer Attending Unavail able Luís, Shiela Primary Care Unavailable Mukkamalla OLS, Carlaaveer Attending Unavail able Luís, Shiela Primary Care Unavailable [place]amalla OLS, Carlaaveer Attending Unavail able Mukkamalla OLS, Carlaaveer Referring Unavail able Luís, Shiela Primary Care [...] Attending Unavailable Luís, Shiela Primary Care Unavailable [facility] [place] Attending Unavai lable Luís, Shiela Primary Care Unavailable [facility] [place] Attending Unavai lable Luís, Shiela Primary Care Unavailable [facility] [place] Attending Unavai lable Luís, Shiela Primary Care Unavailable Katsaros OLS, Peter Attending Unavailable Luís, Shiela Primary Care Unavailable [facility] [place] Attending Unavai lable Luís, Shiela Primary Care Unavailable Luís, Shiela Primary Care Unavailable Katsaros OLS, Peter Attending Unavailable Katsaros OLS, Peter Attending Unavailable Luís, Shiela Primary Care Unavailable [facility] [place] Attending Unavai lable Luís, Shiela Primary Care Unavailable Katsaros OLS, Peter Attending Unavailable Luís, Shiela Primary Care Unavailable Katsaros OLS, Peter Attending Unavailable Luís, Shiela Primary Care Unavailable [facility] [place] Attending Unavai lable Luís, Shiela Primary Care Unavailable Luís, Shiela Primary Care Unavailable Katsaros OLS, Peter Attending Unavailable [facility] [place] Attending Unavai lable Luís, Shiela Primary Care Unavailable [facility] [place] Attending Unavai lable Luís, Shieal Primary Care Unavailable [facility] [place] Attending Unavai lable Luís, Shiela Primary Care Unavailable Luís, Shiela Primary Care Unavailable Katsaros OLS, Peter Attending Unavailable Katsaros OLS, Peter Attending Unavailable Luís, Shiela Primary Care Unavailable Mukkamalla OLS, Mahaveer Attending Unavail able Luís, Shiela Primary Care Unavailable [place]amalla OLS, Mahaveer Referring Unavail able Luís, Shiela Primary Care Unavailable [place] OLS, Mahaveer Attending Unavail able Mukkamalla OLS, Mahaveer Referring Unavail able Mukkamalla OLS, Mahaveer Attending Unavail able Luís, Shiela Primary Care Unavailable Katsaros OLS, Peter Attending Unavailable Luís, Shiela Primary Care Unavailable Crisostomo OLS, Vicentebalkarolet Attending Unavailable Luís, Shiela Primary Care Unavailable [...] Luís, Shiela Primary Care Unavailable Crisostomo OLS, Vicentebalkarolet Attending Unavailable Luís, Shiela Primary Care Unavailable Crisostomo OLS, Babbaljeet Attending Unavailable Luís, Shiela Primary Care Unavailable Crisostoom OLS, Elizabethet Attending Unavailable Luís, Shiela Primary [...] Attending Unavailable Luís, Shiela Primary Care Unavailable [facility] [place] Attending Tricia bustamantele Luís, Shiela Primary Care Unavailable Katsaros OLS, Carlos Attending Unavailable Luís, Shiela Primary Care Unavailable Crisostomo OLS, Kvng Attending Unavailable Luís, Shiela Primary Care Unavailable Katsaros OLS, Carlos Attending Unavailable Luís, Shiela Primary Care Unavailable [place]kamalla OLS, Karon Attending Unavail able Luís, Shiela Primary Care Unavailable [place]amalla OLS, Melindaer Attending Unavail able Luís, Shiela Primary Care Unavailable [place]amalla OLS, Karon Attending Unavail able Luís, Shiela Primary Care Unavailable Luís, Shiela Primary Care Unavailable [place] OLS, Mahaveer Attending Unavail able Mukkamalla OLS, Carlaaveer Attending Unavail able Luís, Shiela Primary Care Unavailable [place] OLS, Melindaer Attending Unavail able Luís, Shiela Primary Care Unavailable Katsaros OLS, Peter Attending Unavailable Luís, Shiela Primary Care Unavailable Crisostomo OLS, Kvng Attending Unavailable Luís, Shiela Primary Care Unavailable Katsaros OLS, Carlos Attending Unavailable Luís, Shiela Primary Care Unavailable Katsaros OLS, Peter Attending Unavailable Luís, Shiela Primary Care Unavailable Katsaros OLS, Carlos Attending Unavailable Luís, [facility] Primary Care Unavailable Mukkamalla OLS, Carlaaveer Referring Unavail able Mukkamalla OLS, Carlaaveer Attending Unavail able Luís, Shiela Primary Care Unavailable [place]amalla OLS, Mahaveer Referring Unavail able Mukkamalla OLS, Mahaveer Attending Unavail able Luís, [facility] Primary Care Unavailable Katsaros OLS, Carlos Attending Unavailable Luís, Shiela Primary Care Unavailable [place]amalla OLS, Melindaer Attending Unavail able Luís, Shiela Primary Care Unavailable [place]kamalla OLS, Carlaaveer Referring Unavail able Mukkamalla OLS, Melindaer Attending Unavail able Luís, [facility] Primary Care Unavailable Katsaros OLS, Carlos Attending Unavailable Luís, [facility] Primary Care Unavailable Katsaros OLS, Carlos Referring Unavailable Katsaros OLS, Carlos Attending Unavailable Luís, [facility] Primary Care Unavailable Katsaros OLS, Peter Attending Unavailable Luís, [facility] Primary Care Unavailable Allergies Allergy Classification Reported Allergen(s) Allergy Type Date of Onset Reaction(s) Facility (13 sources) Morphine Drug Allergy 5 [facility] Work Phone: (15 sources) Alcohol Propensity to adverse reactions to drug 3 Rash, Hives, Other: See Comments, Other [facility] Work Phone: (1 source) Latex Drug Allergy 0 Rash [facility] (8 sources) Cortisone Drug Allergy 2 [facility] (7 sources) Latex Allergy to substance 0 Rash [facility] Medications Current Medications Medication Drug Class(es) Dates Sig (Normalized) Sig (Original) Acetaminophen (10 sources) Start: 10-21-2021 acetaminophen (TYLENOL) tablet 650 mg Start: 09-14-2021 acetaminophen (TYLENOL) 325 MG tablet 650 mg every 6 hours as needed 0 09/14/2021 Active take 2 tablets by [facility] every eight hours acetaminophen (TYLENOL) 325 mg [...] 750 mg oral tablet (5 sources) Start: levETIRAcetam (Keppra) 750 MG tablet Start: 10-29-2021 [...] Start: 11-01-2021 take 1 capsule by mo [facility] once daily tamsulosin (FLOMAX) 0.4 MG capsule Take 1 capsule by mouth daily 30 capsule 0 11/01/2021 Active warfarin sodium 2.5 mg oral tablet (19 sources) Vitamin K Antagonist Start: 08-03-2023 warfarin (Coumadin) 2.5 MG tablet Start: 10-29-2021 take 1 tablet by joan th once daily warfarin (COUMADIN) 6 MG tablet [...] on above: Take 1 tablet by joan once daily. calcium carbonate 500 mg chewable [...] on above: Take 1 capsule by mo [facility] three times daily. Complete Multi-Vitamin CHEW (4 [...] Active docusate sodium 50 mg / sennosides, jail 8.6 mg oral tablet (1 source) Start: [...] above: Take 1 tablet by joan th twice daily. furosemide 40 mg oral tablet [...] Units subcutaneously with meals and at bedtime. Arabic Panax Ginseng 100 MG CAPS (8 sources) Arabic Panax Ginseng 100 MG CAPS Quantity: 0 Refills: 0 Ordered: 06-Nov-2019 DO Active Arabic Panax Ginseng 100 MG Oral Capsule (4 sources) Arabic Panax Ginseng 100 MG Oral Capsule Refills: 0 Active Arabic Panax Gin mayuri 100 MG Oral Capsule Refills: 0 DO Active Arabic Panax Ginseng 100 MG Oral Capsule (2 sources) Arabic Panax Gin mayuri 100 MG Oral Capsule [...] above: Take 1 tablet by joan th three times daily as needed. methylPREDNISolone (1 source) Corticosteroid Star t: 09-23 13 methylPREDNISolone (MEDROL, JADYN,) 4 mg tablet Indications: [...] 1 tablet by joan th once daily. Pentoxifylline (1 source) Blood Viscosity [employer] PENTOXIFYLLINE ORAL Take by mouth. 0 Active Comment on above: Take by mouth. petrolatum 0.41 mg/mg topical ointment (1 source) Start : 08-20 white petrolatum (AQUAPHOR) 41 % topical ointment Apply to affected area once daily. 0 08/20/2021 Active Comment on above: Apply to affected ar ea once daily. 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) use of 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] Episodic Other circulatory [...] Translations: [Dependence on respirator [ventilator] status] Onset: 06-01-2021 06-17-2021 Chronic Screening and history of mental health [...] 02-16-2022 Episodic Other aftercare (2 sources) Other usp (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; Translations: [Other usp (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] Onset: 06-02-2024 Episodic Other [...] source) Disorientated; Translations: [Disorientation, unspecified] Onset: 05-30-2021 2 Episodic Residual codes; unclassified (1 source) Altered [...] Coag (PPP) [Relative time] 2.6 {INR} Normal [facility] Comment on above: Order Comment: 411.2 Performed By: #### L [id number] ####[facility] [address] [facility] [place], [place], [phone] PT Coag (PPP) [Time] 28.7 s High 11.7-14.9 [facility] Comment on above: Order Comment: 411.2 Performed By: #### L [id number] ####[facility] [address] [place], [place], [phone]) Prothrombin Time w/INRon INR Coag (PPP) [Relative time] 3.1 {INR} Normal [facility] Comment on above: Order Comment: 411.2 Performed By: #### L 300.3900 ####[facility] [address] [place], [address] PT Coag (PPP) [Time] 33.0 s High 11.7-14.9 [facility] Comment on above: Order Comment: 411.2 Performed By: #### L 300.3900 ####[facility] [address] [place], [address] Prothrombin Time w/INRon INR Coag (PPP) [Relative time] 3.0 {INR} Normal [facility] Comment on above: Order Comment: 411-2 Performed By: #### L 300.3900 ####[facility] [address] [place], [address] PT Coag (PPP) [Time] 31.4 s High 11.7-14.9 [facility] Comment on above: Order Comment: 411-2 Performed By: #### L 300.3900 ####[facility] [address] [place], [address] International normalized rat io (INR) calculationOrdered By: Karon Corrales on 10-30-2024 INR Coag (Bld) [Relative time] 2.4 {INR} [facility] Prothrombin Time w/INRon INR Coag (PPP) [Relative time] 2.4 {INR} Normal [facility] Comment on above: Performed By: #### L 300.3900 ####[facility] [address] [place], [address] PT Coag (PPP) [Time] 26.3 s High 11.7-14.9 [facility] Comment on above: Performed By: #### L 300.3900 ####[facility] [address] [place], [place], [phone] Prothrombin timeOrdered By: Karon Corrales on 10-30-2024 PT Coag (PPP) [Time] 26.3 s High 11.7-14.9 [facility] International normalized rat io (INR) calculationOrdered By: Karon Corrales on 10-27-2024 INR Coag (Bld) [Relative time] 2.2 {INR} [facility] Prothrombin Time w/INRon INR Coag (PPP) [Relative time] 2.2 {INR} Normal [facility] Comment on above: Order Comment: 411.2 Performed By: #### L 300.3900 ####[facility] [address] [place], [place], [phone] Prothrombin timeOrdered By: Karon Corrales on 10-27-2024 PT Coag (PPP) [Time] 24.5 s High 11.7-14.9 [facility] Comment on above: Order Comment: 411.2 Performed By: #### L 300.3900 ####[facility] [address] [place], [place], [phone] International normalized rat io (INR) calculationOrdered By: Karon Corrales on 10-23-2024 INR Coag (Bld) [Relative time] 2.5 {INR} [facility] Prothrombin Time w/INRon INR Coag (PPP) [Relative time] 2.5 {INR} Normal [facility] Comment on above: Order Comment: 411.2 Performed By: #### L 300.3900 ####[facility] [address] [place], [place], [phone] PT Coag (PPP) [Time] 27.9 s High 11.7-14.9 [facility] Comment on above: Order Comment: 411.2 Performed By: #### L 300.3900 ####[facility] [address] [place], [address] Prothrombin timeOrdered By: Karon Corrales on 10-23-2024 PT Coag (PPP) [Time] 27.9 s High 11.7-14.9 [facility] International normalized rat io (INR) calculationOrdered By: Karon Corrales on 10-20-2024 INR Coag (Bld) [Relative time] 3.1 {INR} [facility] Prothrombin Time w/INRon INR Coag (PPP) [Relative time] 3.1 {INR} Normal [facility] Comment on above: Order Comment: 411.2 Performed By: #### L 300.3900 ####[facility] [address] [place], [address] PT Coag (PPP) [Time] 32.8 s High 11.7-14.9 [facility] Comment on above: Order Comment: 411.2 Performed By: #### L 300.3900 ####[facility] [address] [place], [place], [phone] Prothrombin timeOrdered By: Karon Corrales on 10-20-2024 PT Coag (PPP) [Time] 32.8 s High 11.7-14.9 [facility] International normalized rat io (INR) calculationOrdered By: Karon Corrales on 10-16-2024 INR Coag (Bld) [Relative time] 2.8 {INR} [facility] Prothrombin Time w/INRon INR Coag (PPP) [Relative time] 2.8 {INR} Normal [facility] Comment on above: Order Comment: 411.2 Performed By: #### L 300.3900 ####[facility] [address] [place], [address](687) PT Coag (PPP) [Time] 30.4 s High 11.7-14.9 [facility] Comment on above: Order Comment: 411.2 Performed By: #### L 300.3900 ####[facility] [address] [place], [place], [phone] Prothrombin timeOrdered By: Karon Corrales on 10-16-2024 PT Coag (PPP) [Time] 30.4 s High 11.7-14.9 [facility] International normalized rat io (INR) calculationOrdered By: Carlos Cavazos on 10-13-2024 INR Coag (Bld) [Relative time] 1.9 {INR} [facility] Prothrombin Time w/INRon INR Coag (PPP) [Relative time] 1.9 {INR} Normal [facility] Comment on above: Order Comment: 411-2 Performed By: #### L 300.3900 ####[facility] [address] [place], [place], [address] PT Coag (PPP) [Time] 22.4 s High 11.7-14.9 [facility] Comment on above: Order Comment: 411-2 Performed By: #### L 300.3900 ####[facility] [address] [place], [place], [phone] Prothrombin timeOrdered By: Carlos Cavazos on 10-13-2024 PT Coag (PPP) [Time] 22.4 s High 11.7-14.9 [facility] International normalized rat io (INR) calculationOrdered By: Karon Corrales on 10-09-2024 INR Coag (Bld) [Relative time] 3.0 {INR} [facility] Prothrombin Time w/INRon INR Coag (PPP) [Relative time] 3.0 {INR} Normal [facility] Comment on above: Order Comment: 411.2 Performed By: #### L 300.3900 ####[facility] [address] [place], [place], [phone] Prothrombin timeOrdered By: Karon Corrales on 10-09-2024 PT Coag (PPP) [Time] 31.8 s High 11.7-14.9 [facility] Comment on above: Order Comment: 411.2 Performed By: #### L 300.3900 ####[facility] [address] [place], [phone] International normalized rat io (INR) calculationOrdered By: Carlos Cavazos on 10-06-2024 INR Coag (Bld) [Relative time] 2.7 {INR} [facility] Prothrombin Time w/INRon INR Coag (PPP) [Relative time] 2.7 {INR} Normal [facility] Comment on above: Order Comment: 411-2 Performed By: #### L 300.3900 ####[facility] [address] [place], [place], [phone] PT Coag (PPP) [Time] 29.6 s High 11.7-14.9 [facility] Comment on above: Order Comment: 411-2 Performed By: #### L 300.3900 ####[facility] [address] [place], [phone] Prothrombin timeOrdered By: Carlos Cavazos on 10-06-2024 PT Coag (PPP) [Time] 29.6 s High 11.7-14.9 [facility] International normalized rat io (INR) calculationOrdered By: Karon Corrales on 10-02-2024 INR Coag (Bld) [Relative time] 2.3 {INR} [facility] Prothrombin Time w/INRon INR Coag (PPP) [Relative time] 2.3 {INR} Normal [facility] Comment on above: Order Comment: 411.2 Performed By: #### L 300.3900 ####[facility] [address] [place], [address] PT Coag (PPP) [Time] 26.0 s High 11.7-14.9 [facility] Comment on above: Order Comment: 411.2 Performed By: #### L 300.3900 ####[facility] [address] [place], [place], [phone] Prothrombin timeOrdered By: Karon Corrales on 10-02-2024 PT Coag (PPP) [Time] 26.0 s High 11.7-14.9 [facility] International normalized rat io (INR) calculationOrdered By: Karon Corrales on 09-30-2024 INR Coag (Bld) [Relative time] 3.1 {INR} [facility] Prothrombin Time w/INRon INR Coag (PPP) [Relative time] 3.1 {INR} Normal [facility] Comment on above: Order Comment: 411.2 Performed By: #### L 300.3900 ####[facility] [address] [facility] [place], [place], [phone] PT Coag (PPP) [Time] 32.6 s High 11.7-14.9 [facility] Comment on above: Order Comment: 411.2 Performed By: #### L 300.3900 ####[facility] [address] [facility] [place], [place], [phone] Prothrombin timeOrdered By: Karon Corrales on 09-30-2024 PT Coag (PPP) [Time] 32.6 s High 11.7-14.9 [facility] International normalized rat io (INR) calculationOrdered By: Karon Corrales on 09-25-2024 INR Coag (Bld) [Relative time] 2.4 {INR} [facility] Prothrombin Time w/INRon INR Coag (PPP) [Relative time] 2.4 {INR} Normal [facility] Comment on above: Order Comment: 411.2 Performed By: #### L 300.3900 ####[facility] [address] [facility] [place], [address] Prothrombin timeOrdered By: Karon Corrales on 09-25-2024 PT Coag (PPP) [Time] 26.7 s High 11.7-14.9 [facility] Comment on above: Order Comment: 411.2 Performed By: #### L 300.3900 ####[facility] [address] [place], [place], [phone] International normalized rat io (INR) calculationOrdered By: Karon Corrales on 09-22-2024 INR Coag (Bld) [Relative time] 2.5 {INR} [facility] Prothrombin Time w/INRon INR Coag (PPP) [Relative time] 2.5 {INR} Normal [facility] Comment on above: Order Comment: 411.2 Performed By: #### L 300.3900 ####[facility] [address] [place], [place], [phone] Prothrombin timeOrdered By: Karon Corrales on 09-22-2024 PT Coag (PPP) [Time] 27.4 s High 11.7-14.9 [facility] Comment on above: Order Comment: 411.2 Performed By: #### L 300.3900 ####[facility] [address] [place], [place], [phone] International normalized rat io (INR) calculationOrdered By: Karon Corrales on 09-18-2024 INR Coag (Bld) [Relative time] 2.2 {INR} [facility] Prothrombin Time w/INRon INR Coag (PPP) [Relative time] 2.2 {INR} Normal [facility] Comment on above: Order Comment: 411.2 Performed By: #### L 300.3900 ####[facility] [address] [address] [place], [place], [phone] PT Coag (PPP) [Time] 25.1 s High 11.7-14.9 [facility] Comment on above: Order Comment: 411.2 Performed By: #### L 300.3900 ####[facility] [address] [place], [place], [phone] Prothrombin timeOrdered By: Karon Corrales on 09-18-2024 PT Coag (PPP) [Time] 25.1 s High 11.7-14.9 [facility] normalized rat io (INR) calculationOrdered By: Carlos Cavazos on 09-15-2024 INR Coag (Bld) [Relative time] 2.4 {INR} [facility] Prothrombin Time w/INRon INR Coag (PPP) [Relative time] 2.4 {INR} Normal [facility] Comment on above: Order Comment: 411-2 Performed By: #### L 300.3900 ####[facility] [address] [place], [address] Prothrombin timeOrdered By: Carlos Cavazos on 09-15-2024 PT Coag (PPP) [Time] 26.3 s High 11.7-14.9 [facility] Comment on above: Order Comment: 411-2 Performed By: #### L 300.3900 ####[facility] [address] [place], [place], [phone] International normalized rat io (INR) calculationOrdered By: Karon Corrales on 09-11-2024 INR Coag (Bld) [Relative time] 2.0 {INR} [facility] Prothrombin Time w/INRon INR Coag (PPP) [Relative time] 2.0 {INR} Normal [facility] Comment on above: Order Comment: 411.2 Performed By: #### L 300.3900 ####[facility] [address] [place], [place], [phone] PT Coag (PPP) [Time] 22.9 s High 11.7-14.9 [facility] Comment on above: Order Comment: 411.2 Performed By: #### L 300.3900 ####[facility] [address] [place], [address] Prothrombin timeOrdered By: Karon Corrales on 09-11-2024 PT Coag (PPP) [Time] 22.9 s High 11.7-14.9 [facility] normalized rat io (INR) calculationOrdered By: Karon Corrales on 09-08-2024 INR Coag (Bld) [Relative time] 2.0 {INR} [facility] Prothrombin Time w/INRon INR Coag (PPP) [Relative time] 2.0 {INR} Normal [facility] Comment on above: Order Comment: 411.2 Performed By: #### L 300.3900 ####[facility] [address] [place], [place], [phone] PT Coag (PPP) [Time] 22.8 s High 11.7-14.9 [facility] Comment on above: Order Comment: 411.2 Performed By: #### L 300.3900 ####[facility] [address] [place], [place], [phone] Prothrombin timeOrdered By: Karon Corrales on 09-08-2024 PT Coag (PPP) [Time] 22.8 s High 11.7-14.9 [facility] normalized rat io (INR) calculationOrdered By: Carlos Cavazos on 09-04-2024 INR Coag (Bld) [Relative time] 1.7 {INR} [facility] Prothrombin Time w/INRon INR Coag (PPP) [Relative time] 1.7 {INR} Normal [facility] Comment on above: Order Comment: 411-2 Performed By: #### L 300.3900 ####[facility] [address] [place], [place], [phone] PT Coag (PPP) [Time] 20.8 s High 11.7-14.9 [facility] Comment on above: Order Comment: 411-2 Performed By: #### L 300.3900 ####[facility] [address] [place], [address] Prothrombin timeOrdered By: Carlos Cavazos on 09-04-2024 PT Coag (PPP) [Time] 20.8 s High 11.7-14.9 [facility] normalized rat io (INR) calculationOrdered By: Carlos Cavazos on 09-01-2024 INR Coag (Bld) [Relative time] 2.9 {INR} [facility] Prothrombin Time w/INRon INR Coag (PPP) [Relative time] 2.9 {INR} Normal [facility] Comment on above: Order Comment: 411-2 Performed By: #### L 300.3900 ####[facility] [address] [place], [address] PT Coag (PPP) [Time] 30.7 s High 11.7-14.9 [facility] Comment on above: Order Comment: 411-2 Performed By: #### L 300.3900 ####[facility] [address] [place], [address] Prothrombin timeOrdered By: Carlos Cavazos on 09-01-2024 PT Coag (PPP) [Time] 30.7 s High 11.7-14.9 [facility] normalized rat io (INR) calculationOrdered By: Carlos Cavazos on 08-28-2024 INR Coag (Bld) [Relative time] 2.4 {INR} [facility] Prothrombin Time w/INRon INR Coag (PPP) [Relative time] 2.4 {INR} Normal [facility] Comment on above: Order Comment: 411-2 Performed By: #### L 300.3900 ####[facility] [address] [place], [address] Prothrombin timeOrdered By: Carlos Cavazos on 08-28-2024 PT Coag (PPP) [Time] 26.7 s High 11.7-14.9 [facility] Comment on above: Order Comment: 411-2 Performed By: #### L 300.3900 ####[facility] [address] [place], [place], [phone] International normalized rat io (INR) calculationOrdered By: Karon Corrales on 08-25-2024 INR Coag (Bld) [Relative time] 1.8 {INR} [facility] Prothrombin Time w/INRon INR Coag (PPP) [Relative time] 1.8 {INR} Normal [facility] Comment on above: Order Comment: 411.2 Performed By: #### L 300.3900 ####[facility] [address] [place], [place], [phone] PT Coag (PPP) [Time] 21.6 s High 11.7-14.9 [facility] Comment on above: Order Comment: 411.2 Performed By: #### L 300.3900 ####[facility] [address] [place], [address] Prothrombin timeOrdered By: Karon Corrales on 08-25-2024 PT Coag (PPP) [Time] 21.6 s High 11.7-14.9 [facility] normalized rat io (INR) calculationOrdered By: Karon Corrales on 08-21-2024 INR Coag (Bld) [Relative time] 1.7 {INR} [facility] PSA, total screeningOrdered By: Karon Corrales on 08-21-2024 Prostate Specific Antigen Screen 0.52 ng/mL 0.02-4.00 [facility] Comment on above: This test [...] 08-21-2024 PSA,TOT SCREEN 0.52 ng/mL Normal 0.02-4.00 [facility] Comment on above: Order Comment: [...] values. Performed By: #### L 501.9910, L300.3900 ####[facility] [address] [place], [address] Prothrombin Time w/INRon INR Coag (PPP) [Relative time] 1.7 {INR} Normal [facility] Comment on above: Order Comment: 411.2 Performed By: #### L 501.9910, L300.3900 ####[facility] [address], [address] Prothrombin timeOrdered By: Karon Corrales on 08-21-2024 PT Coag (PPP) [Time] 20.1 s High 11.7-14.9 [facility] Comment on above: Order Comment: 411.2 Performed By: #### L 501.9910, L300.3900 ####[facility] [address] [place], [address] International normalized rat io (INR) calculationOrdered By: Karon Corrales on 08-18-2024 INR Coag (Bld) [Relative time] 3.0 {INR} [facility] Prothrombin Time w/INRon INR Coag (PPP) [Relative time] 3.0 {INR} Normal [facility] Comment on above: Order Comment: 411.2 Performed By: #### L 300.3900 ####[facility] [address] [place], [address] PT Coag (PPP) [Time] 31.4 s High 11.7-14.9 [facility] Comment on above: Order Comment: 411.2 Performed By: #### L 300.3900 ####[facility] [address] [place], [place], [phone] Prothrombin timeOrdered By: Karon Corrales on 08-18-2024 PT Coag (PPP) [Time] 31.4 s High 11.7-14.9 [facility] normalized rat io (INR) calculationOrdered By: Karon Corrales on 08-14-2024 INR Coag (Bld) [Relative time] 2.4 {INR} [facility] Prothrombin Time w/INRon INR Coag (PPP) [Relative time] 2.4 {INR} Normal [facility] Comment on above: Order Comment: 411.2 Performed By: #### L 300.3900 ####[facility] [address] [place], [place], [phone] PT Coag (PPP) [Time] 26.6 s High 11.7-14.9 [facility] Comment on above: Order Comment: 411.2 Performed By: #### L 300.3900 ####[facility] [address] [place], [place], [phone] Prothrombin timeOrdered By: Karon Corrales on 08-14-2024 PT Coag (PPP) [Time] 26.6 s High 11.7-14.9 [facility] normalized rat io (INR) calculationOrdered By: Karon Corrales on 08-11-2024 INR Coag (Bld) [Relative time] 3.1 {INR} [facility] Prothrombin Time w/INRon INR Coag (PPP) [Relative time] 3.1 {INR} Normal [facility] Comment on above: Order Comment: 411.2 Performed By: #### L 300.3900 ####[facility] [address] [place], [place], [phone] PT Coag (PPP) [Time] 32.4 s High 11.7-14.9 [facility] Comment on above: Order Comment: 411.2 Performed By: #### L 300.3900 ####[facility] [address] [place], [address] Prothrombin timeOrdered By: Karon Corrales on 08-11-2024 PT Coag (PPP) [Time] 32.4 s High 11.7-14.9 [facility] normalized rat io (INR) calculationOrdered By: Carlos Cavazos on 08-07-2024 INR Coag (Bld) [Relative time] 2.8 {INR} [facility] Prothrombin Time w/INRon INR Coag (PPP) [Relative time] 2.8 {INR} Normal [facility] Comment on above: Order Comment: 411-2 Performed By: #### L 300.3900 ####[facility] [address] [place], [address] PT Coag (PPP) [Time] 30.3 s High 11.7-14.9 [facility] Comment on above: Order Comment: 411-2 Performed By: #### L 300.3900 ####[facility] [address] [place], [address] Prothrombin timeOrdered By: Carlos Cavazos on 08-07-2024 PT Coag (PPP) [Time] 30.3 s High 11.7-14.9 [facility] normalized rat io (INR) calculationOrdered By: Carlos Cavazos on 08-04-2024 INR Coag (Bld) [Relative time] 1.9 {INR} [facility] Prothrombin Time w/INRon INR Coag (PPP) [Relative time] 1.9 {INR} Normal [facility] Comment on above: Order Comment: 411-2 Performed By: #### L 300.3900 ####[facility] [address] [place], [address] PT Coag (PPP) [Time] 22.1 s High 11.7-14.9 [facility] Comment on above: Order Comment: 411-2 Performed By: #### L 300.3900 ####[facility] [address] [place], [address] Prothrombin timeOrdered By: Carlos Cavazos on 08-04-2024 PT Coag (PPP) [Time] 22.1 s High 11.7-14.9 [facility] normalized rat io (INR) calculationOrdered By: Karon Corrales on 07-31-2024 INR Coag (Bld) [Relative time] 3.2 {INR} [facility] Prothrombin Time w/INRon INR Coag (PPP) [Relative time] 3.2 {INR} Normal [facility] Comment on above: Order Comment: 411.2 Performed By: #### L 300.3900 ####[facility] [address] [place], [address] PT Coag (PPP) [Time] 33.5 s High 11.7-14.9 [facility] Comment on above: Order Comment: 411.2 Performed By: #### L 300.3900 ####[facility] [address] [place], [address] Prothrombin timeOrdered By: Karon Corrales on 07-31-2024 PT Coag (PPP) [Time] 33.5 s High 11.7-14.9 [facility] normalized rat io (INR) calculationOrdered By: Karon Corrales on 07-28-2024 INR Coag (Bld) [Relative time] 2.7 {INR} [facility] Prothrombin Time w/INRon INR Coag (PPP) [Relative time] 2.7 {INR} Normal [facility] Comment on above: Order Comment: 411.2 Performed By: #### L 300.3900 ####[facility] [address] [place], [address] PT Coag (PPP) [Time] 29.6 s High 11.7-14.9 [facility] Comment on above: Order Comment: 411.2 Performed By: #### L 300.3900 ####[facility] [address] [place], [place], [phone] Prothrombin timeOrdered By: Karon Corrales on 07-28-2024 PT Coag (PPP) [Time] 29.6 s High 11.7-14.9 [facility] normalized rat io (INR) calculationOrdered By: Carlos Cavazos on 07-25-2024 INR Coag (Bld) [Relative time] 3.0 {INR} [facility] Prothrombin Time w/INRon INR Coag (PPP) [Relative time] 3.0 {INR} Normal [facility] Comment on above: Order Comment: 411-2 Performed By: #### L 300.3900 ####[facility] [address] [place], [place], [phone] Prothrombin timeOrdered By: Carlos Cavazos on 07-25-2024 PT Coag (PPP) [Time] 32.1 s High 11.7-14.9 [facility] Comment on above: Order Comment: 411-2 Performed By: #### L 300.3900 ####[facility] [address] [place], [place], [phone] International normalized rat io (INR) calculationOrdered By: Karon Corrales on 07-24-2024 INR Coag (Bld) [Relative time] 3.4 {INR} [facility] Prothrombin Time w/INRon INR Coag (PPP) [Relative time] 3.4 {INR} Normal [facility] Comment on above: Order Comment: 411.2 Performed By: #### L 300.3900 ####[facility] [address] [place], [place], [phone] Prothrombin timeOrdered By: Karon Corrales on 07-24-2024 PT Coag (PPP) [Time] 35.4 s High 11.7-14.9 [facility] Comment on above: Order Comment: 411.2 Performed By: #### L 300.3900 ####[facility] [address] [place], [place], [phone] International normalized rat io (INR) calculationOrdered By: Karon Corrales on 07-21-2024 INR Coag (Bld) [Relative time] 1.6 {INR} [facility] Prothrombin Time w/INRon INR Coag (PPP) [Relative time] 1.6 {INR} Normal [facility] Comment on above: Order Comment: 411.2 Performed By: #### L 300.3900 ####[facility] [address] [place], [place], [phone](932) PT Coag (PPP) [Time] 19.6 s High 11.7-14.9 [facility] Comment on above: Order Comment: 411.2 Performed By: #### L 300.3900 ####[facility] [address] [place], [place], [phone] Prothrombin timeOrdered By: Karon Corrales on 07-21-2024 PT Coag (PPP) [Time] 19.6 s High 11.7-14.9 [facility] normalized rat io (INR) calculationOrdered By: Karon Corrales on 07-17-2024 INR Coag (Bld) [Relative time] 2.9 {INR} [facility] Prothrombin Time w/INRon INR Coag (PPP) [Relative time] 2.9 {INR} Normal [facility] Comment on above: Order Comment: 411.2 Performed By: #### L 300.3900 ####[facility] [address] [place], [place], [phone](204) PT Coag (PPP) [Time] 31.1 s High 11.7-14.9 [facility] Comment on above: Order Comment: 411.2 Performed By: #### L 300.3900 ####[facility] [address] [place], [place], [phone](386) Prothrombin timeOrdered By: Karon Corrales on 07-17-2024 PT Coag (PPP) [Time] 31.1 s High 11.7-14.9 [facility] normalized rat io (INR) calculationOrdered By: Carlos Cavazos on 07-14-2024 INR Coag (Bld) [Relative time] 2.5 {INR} [facility] Prothrombin Time w/INRon INR Coag (PPP) [Relative time] 2.5 {INR} Normal [facility] Comment on above: Order Comment: 411-2 Performed By: #### L 300.3900 ####[facility] [address] [place], [place], [phone] PT Coag (PPP) [Time] 27.5 s High 11.7-14.9 [facility] Comment on above: Order Comment: 411-2 Performed By: #### L 300.3900 ####[facility] [address] [place], [place], [phone] Prothrombin timeOrdered By: Carlos Cavazos on 07-14-2024 PT Coag (PPP) [Time] 27.5 s High 11.7-14.9 [facility] normalized rat io (INR) calculationOrdered By: Carlos Cavazos on 07-11-2024 INR Coag (Bld) [Relative time] 2.5 {INR} [facility] Prothrombin Time w/INRon INR Coag (PPP) [Relative time] 2.5 {INR} Normal [facility] Comment on above: Performed By: #### L 300.3900 ####[facility] [address] [place], [address] PT Coag (PPP) [Time] 27.7 s High 11.7-14.9 [facility] Comment on above: Performed By: #### L 300.3900 ####[facility] [address] [place], [address] Prothrombin timeOrdered By: Carlos Cavazos on 07-11-2024 PT Coag (PPP) [Time] 27.7 s High 11.7-14.9 [facility] Prothrombin Time w/INRon INR Normal [facility] Comment on above: Order Comment: 411.2 Result Comment: QNS TUBE NOT FILLED Performed By: #### L 300.3900 ####[facility] [address] [place], [address] PROTIME Normal 11.7-14.9 [facility] Comment on above: Order Comment: 411.2 Result Comment: QNS TUBE NOT FILLED Performed By: #### L 300.3900 ####[facility] [address] [place], [address] International normalized rat io (INR) calculationOrdered By: Kvng Crisostomo on 07-07-2024 INR Coag (Bld) [Relative time] 2.5 {INR} [facility] Prothrombin Time w/INRon INR Coag (PPP) [Relative time] 2.5 {INR} Normal [facility] Comment on above: Order Comment: 411.2 Performed By: #### L 300.3900 ####[facility] [address] [place], [address] PT Coag (PPP) [Time] 27.2 s High 11.7-14.9 [facility] Comment on above: Order Comment: 411.2 Performed By: #### L 300.3900 ####[facility] [address] [place], [address] Prothrombin timeOrdered By: Kvng Crisostomo on 07-07-2024 PT Coag (PPP) [Time] 27.2 s High 11.7-14.9 [facility] normalized rat io (INR) calculationOrdered By: Kvng Crisostomo on 07-03-2024 INR Coag (Bld) [Relative time] 2.5 {INR} [facility] Prothrombin Time w/INRon INR Coag (PPP) [Relative time] 2.5 {INR} Normal [facility] Comment on above: Order Comment: 411.2 Performed By: #### L 300.3900 ####[facility] [address] [place], [address] PT Coag (PPP) [Time] 27.2 s High 11.7-14.9 [facility] Comment on above: Order Comment: 411.2 Performed By: #### L 300.3900 ####[facility] [address] [place], [address] Prothrombin timeOrdered By: Kvng Crisostomo on 07-03-2024 PT Coag (PPP) [Time] 27.2 s High 11.7-14.9 [facility] normalized rat io (INR) calculationOrdered By: Kvng Crisostomo on 06-30-2024 INR Coag (Bld) [Relative time] 2.4 {INR} [facility] Prothrombin Time w/INRon INR Coag (PPP) [Relative time] 2.4 {INR} Normal [facility] Comment on above: Order Comment: 411.2 Performed By: #### L 300.3900 ####[facility] [address] [place], [address] PT Coag (PPP) [Time] 26.8 s High 11.7-14.9 [facility] Comment on above: Order Comment: 411.2 Performed By: #### L 300.3900 ####[facility] [address] [place], [address] Prothrombin timeOrdered By: Kvng Crisostomo on 06-30-2024 PT Coag (PPP) [Time] 26.8 s High 11.7-14.9 [facility] normalized rat io (INR) calculationOrdered By: Kvng Crisostomo on 06-26-2024 INR Coag (Bld) [Relative time] 2.5 {INR} [facility] Prothrombin Time w/INRon INR Coag (PPP) [Relative time] 2.5 {INR} Normal [facility] Comment on above: Order Comment: 411.2 Performed By: #### L 300.3900 ####[facility] [address] [place], [address] PT Coag (PPP) [Time] 27.5 s High 11.7-14.9 [facility] Comment on above: Order Comment: 411.2 Performed By: #### L 300.3900 ####[facility] [address] [place], [place], [phone]([phone] Prothrombin timeOrdered By: Kvng Crisostomo on 06-26-2024 PT Coag (PPP) [Time] 27.5 s High 11.7-14.9 [facility] normalized rat io (INR) calculationOrdered By: Carlos Cavazos on 06-23-2024 INR Coag (Bld) [Relative time] 2.8 {INR} [facility] Prothrombin Time w/INRon INR Coag (PPP) [Relative time] 2.8 {INR} Normal [facility] Comment on above: Order Comment: 411-2 Performed By: #### L 300.3900 ####[facility] [address] [place], [address] PT Coag (PPP) [Time] 29.7 s High 11.7-14.9 [facility] Comment on above: Order Comment: 411-2 Performed By: #### L 300.3900 ####[facility] [address] [place], [place], [phone] Prothrombin timeOrdered By: Carlos Cavazos on 06-23-2024 PT Coag (PPP) [Time] 29.7 s High 11.7-14.9 [facility] normalized rat io (INR) calculationOrdered By: Kvng Crisostomo on 06-19-2024 INR Coag (Bld) [Relative time] 2.6 {INR} [facility] Prothrombin Time w/INRon INR Coag (PPP) [Relative time] 2.6 {INR} Normal [facility] Comment on above: Order Comment: 411.2 Performed By: #### L 300.3900 ####[facility] [address] [place], [address] PT Coag (PPP) [Time] 28.6 s High 11.7-14.9 [facility] Comment on above: Order Comment: 411.2 Performed By: #### L 300.3900 ####[facility] [address] [place], [address] Prothrombin timeOrdered By: Kvng Crisostomo on 06-19-2024 PT Coag (PPP) [Time] 28.6 s High 11.7-14.9 [facility] normalized rat io (INR) calculationOrdered By: Kvng Crisostomo on 06-16-2024 INR Coag (Bld) [Relative time] 2.5 {INR} [facility] Prothrombin Time w/INRon INR Coag (PPP) [Relative time] 2.5 {INR} Normal [facility] Comment on above: Order Comment: 411.2 Performed By: #### L 300.3900 ####[facility] [address] [place], [address] PT Coag (PPP) [Time] 27.3 s High 11.7-14.9 [facility] Comment on above: Order Comment: 411.2 Performed By: #### L 300.3900 ####[facility] [address] [place], [address] Prothrombin timeOrdered By: Kvng Crisostomo on 06-16-2024 PT Coag (PPP) [Time] 27.3 s High 11.7-14.9 [facility] normalized rat io (INR) calculationOrdered By: Kvng Crisostomo on 06-12-2024 INR Coag (Bld) [Relative time] 2.1 {INR} [facility] Prothrombin Time w/INRon INR Coag (PPP) [Relative time] 2.1 {INR} Normal [facility] Comment on above: Order Comment: 411.2 Performed By: #### L 300.3900 ####[facility] [address] [place], [address] PT Coag (PPP) [Time] 24.0 s High 11.7-14.9 [facility] Comment on above: Order Comment: 411.2 Performed By: #### L 300.3900 ####[facility] [address] [place], [address] Prothrombin timeOrdered By: Kvng Crisostomo on 06-12-2024 PT Coag (PPP) [Time] 24.0 s High 11.7-14.9 [facility] normalized rat io (INR) calculationOrdered By: Carlos Cavazos on 06-09-2024 INR Coag (Bld) [Relative time] 1.5 {INR} [facility] Prothrombin Time w/INRon INR Coag (PPP) [Relative time] 1.5 {INR} Normal [facility] Comment on above: Order Comment: 411-2 Performed By: #### L 300.3900 ####[facility] [address] [place], [address] PT Coag (PPP) [Time] 18.0 s High 11.7-14.9 [facility] Comment on above: Order Comment: 411-2 Performed By: #### L 300.3900 ####[facility] [address] [place], [address] Prothrombin timeOrdered By: Carlos Cavazos on 06-09-2024 PT Coag (PPP) [Time] 18.0 s High 11.7-14.9 [facility] normalized rat io (INR) calculationOrdered By: Kvng Crisostomo on 06-05-2024 INR Coag (Bld) [Relative time] 2.8 {INR} [facility] Prothrombin Time w/INRon INR Coag (PPP) [Relative time] 2.8 {INR} Normal [facility] Comment on above: Order Comment: 411.2 Performed By: #### L 300.3900 ####[facility] [address] [facility] [address] PT Coag (PPP) [Time] 30.3 s High 11.7-14.9 [facility] Comment on above: Order Comment: 411.2 Performed By: #### L 300.3900 ####[facility] [address] [facility] [address] Prothrombin timeOrdered By: Kvng Crisostomo on 06-05-2024 PT Coag (PPP) [Time] 30.3 s High 11.7-14.9 [facility] normalized rat io (INR) calculationOrdered By: Kvng Crisostomo on 06-02-2024 INR Coag (Bld) [Relative time] 2.6 {INR} [facility] Prothrombin Time w/INRon INR Coag (PPP) [Relative time] 2.6 {INR} Normal [facility] Comment on above: Order Comment: 411.2 Performed By: #### L 300.3900 ####[facility] [address] [facility] [address] PT Coag (PPP) [Time] 28.6 s High 11.7-14.9 [facility] Comment on above: Order Comment: 411.2 Performed By: #### L 300.3900 ####[facility] [address] [place] [phone] Prothrombin timeOrdered By: Kvng Crisostomo on 06-02-2024 PT Coag (PPP) [Time] 28.6 s High 11.7-14.9 [facility] normalized rat io (INR) calculationOrdered By: Kvng Crisostomo on 05-29-2024 INR Coag (Bld) [Relative time] 2.5 {INR} [facility] Prothrombin Time w/INRon INR Coag (PPP) [Relative time] 2.5 {INR} Normal [facility] Comment on above: Order Comment: 411.2 Performed By: #### L 300.3900 ####[facility] [address] [place], [place], [phone] PT Coag (PPP) [Time] 27.7 s High 11.7-14.9 [facility] Comment on above: Order Comment: 411.2 Performed By: #### L 300.3900 ####[facility] [address] [place], [address] Prothrombin timeOrdered By: Kvng Crisostomo on 05-29-2024 PT Coag (PPP) [Time] 27.7 s High 11.7-14.9 [facility] normalized rat io (INR) calculationOrdered By: Carlos Cavazos on 05-26-2024 INR Coag (Bld) [Relative time] 2.2 {INR} [facility] Prothrombin Time w/INRon INR Coag (PPP) [Relative time] 2.2 {INR} Normal [facility] Comment on above: Order Comment: 411-2 Performed By: #### L 300.3900 ####[facility] [address] [place], [address] PT Coag (PPP) [Time] 24.5 s High 11.7-14.9 [facility] Comment on above: Order Comment: 411-2 Performed By: #### L 300.3900 ####[facility] [address] [place], [place], [phone] Prothrombin timeOrdered By: Carlos Cavazos on 05-26-2024 PT Coag (PPP) [Time] 24.5 s High 11.7-14.9 [facility] normalized rat io (INR) calculationOrdered By: Kvng Crisostomo on 05-22-2024 INR Coag (Bld) [Relative time] 2.8 {INR} [facility] Prothrombin Time w/INRon INR Coag (PPP) [Relative time] 2.8 {INR} Normal [facility] Comment on above: Order Comment: 411.2 Performed By: #### L 300.3900 ####[facility] [address] [place], [place], [phone] PT Coag (PPP) [Time] 30.3 s High 11.7-14.9 [facility] Comment on above: Order Comment: 411.2 Performed By: #### L 300.3900 ####[facility] [address] [place], [place], [phone] Prothrombin timeOrdered By: Kvng Crisostomo on 05-22-2024 PT Coag (PPP) [Time] 30.3 s High 11.7-14.9 [facility] normalized rat io (INR) calculationOrdered By: Kvng Crisostomo on 05-20-2024 INR Coag (Bld) [Relative time] 4.0 {INR} High [facility] Comment on above: CRITICAL VALUE CASEY D TO [id number]/14/25 0828 Diana Mattson.RESULTS READ BACK BY SAME. Prothrombin Time w/INRon INR Coag (PPP) [Relative time] 4.0 {INR} Invalid Interpretation Code [facility] Comment on above: Order Comment: 411.2 Result Comment: CRIT ICAL VALUE CALLED TO FOHNYZNOS37/14/25 0828 Diana Mattson.RESULTS READ BACK BY SAME. Performed By: #### L 300.3900 ####[facility] [address] [place], [place], [phone] PT Coag (PPP) [Time] 39.9 s High 11.7-14.9 [facility] Comment on above: Order Comment: 411.2 Performed By: #### L 300.3900 ####[facility] [address] [place], [place], [phone] Prothrombin timeOrdered By: Kvng Crisostomo on 05-20-2024 PT Coag (PPP) [Time] 39.9 s High 11.7-14.9 [facility] normalized rat io (INR) calculationOrdered By: Kvng Crisostomo on 05-19-2024 INR Coag (Bld) [Relative time] 3.4 {INR} [facility] Prothrombin Time w/INRon INR Coag (PPP) [Relative time] 3.4 {INR} Normal [facility] Comment on above: Order Comment: 411.2 Performed By: #### L 300.3900 ####[facility] [address] [place], [place], [phone] PT Coag (PPP) [Time] 35.4 s High 11.7-14.9 [facility] Comment on above: Order Comment: 411.2 Performed By: #### L 300.3900 ####[facility] [address] [place], [place], [phone] Prothrombin timeOrdered By: Kvng Crisostomo on 05-19-2024 PT Coag (PPP) [Time] 35.4 s High 11.7-14.9 [facility] normalized rat io (INR) calculationOrdered By: Kvng Crisostomo on 05-15-2024 INR Coag (Bld) [Relative time] 2.6 {INR} [facility] Prothrombin Time w/INRon INR Coag (PPP) [Relative time] 2.6 {INR} Normal [facility] Comment on above: Order Comment: 411.2 Performed By: #### L 300.3900 ####[facility] [address] [place], [address] PT Coag (PPP) [Time] 28.7 s High 11.7-14.9 [facility] Comment on above: Order Comment: 411.2 Performed By: #### L 300.3900 ####[facility] [address] [place], [address] Prothrombin timeOrdered By: Kvng Crisostomo on 05-15-2024 PT Coag (PPP) [Time] 28.7 s High 11.7-14.9 [facility] normalized rat io (INR) calculationOrdered By: Carlos Cavazos on 05-12-2024 INR Coag (Bld) [Relative time] 2.1 {INR} [facility] Prothrombin Time w/INRon INR Coag (PPP) [Relative time] 2.1 {INR} Normal [facility] Comment on above: Order Comment: 411-2 Performed By: #### L 300.3900 ####[facility] [address] [place], [address] PT Coag (PPP) [Time] 24.1 s High 11.7-14.9 [facility] Comment on above: Order Comment: 411-2 Performed By: #### L 300.3900 ####[facility] [address] [place], [address] Prothrombin timeOrdered By: Carlos Cavazos on 05-12-2024 PT Coag (PPP) [Time] 24.1 s High 11.7-14.9 [facility] normalized rat io (INR) calculationOrdered By: Kvng Crisostomo on 05-09-2024 INR Coag (Bld) [Relative time] 3.4 {INR} [facility] Prothrombin Time w/INRon INR Coag (PPP) [Relative time] 3.4 {INR} Normal [facility] Comment on above: Order Comment: 411.2 Performed By: #### L 300.3900 ####[facility] [address] [place], [address] PT Coag (PPP) [Time] 35.4 s High 11.7-14.9 [facility] Comment on above: Order Comment: 411.2 Performed By: #### L 300.3900 ####[facility] [address] [place], [address] Prothrombin timeOrdered By: Kvng Crisostomo on 05-09-2024 PT Coag (PPP) [Time] 35.4 s High 11.7-14.9 [facility] normalized rat io (INR) calculationOrdered By: Kvng Crisostomo on 05-08-2024 INR Coag (Bld) [Relative time] 4.1 {INR} High [facility] Comment on above: CRITICAL VALUE CASEY D TO [facility]05/08/24 0950 [facility]RESULTS READ BACK BY SAME. Prothrombin Time w/INRon INR Coag (PPP) [Relative time] 4.1 {INR} Invalid Interpretation Code [facility] Comment on above: Order Comment: 411.2 Result Comment: CRIT ICAL VALUE CALLED TO [facility]05/08/24 0950 [facility]RESULTS READ BACK BY SAME. Performed By: #### L 300.3900 ####[facility] [address] [place], [address] PT Coag (PPP) [Time] 40.8 s High 11.7-14.9 [facility] Comment on above: Order Comment: 411.2 Performed By: #### L 300.3900 ####[facility] [address] [place], [address] Prothrombin timeOrdered By: Kvng Crisostomo on 05-08-2024 PT Coag (PPP) [Time] 40.8 s High 11.7-14.9 [facility] normalized rat io (INR) calculationOrdered By: Kvng Crisostomo on 05-05-2024 INR Coag (Bld) [Relative time] 3.2 {INR} [facility] Prothrombin Time w/INRon INR Coag (PPP) [Relative time] 3.2 {INR} Normal [facility] Comment on above: Order Comment: 411.2 Performed By: #### L 300.3900 ####[facility] [address] [place] [phone] PT Coag (PPP) [Time] 32.5 s High 11.7-14.9 [facility] Comment on above: Order Comment: 411.2 Performed By: #### L 300.3900 ####[facility] [address] [place] [phone] Prothrombin timeOrdered By: Kvng Crisostomo on 05-05-2024 PT Coag (PPP) [Time] 32.5 s High 11.7-14.9 [facility] normalized rat io (INR) calculationOrdered By: Kvng Crisostomo on 05-01-2024 INR Coag (Bld) [Relative time] 3.1 {INR} [facility] Prothrombin Time w/INRon INR Coag (PPP) [Relative time] 3.1 {INR} Normal [facility] Comment on above: Order Comment: 411.2 Performed By: #### L 300.3900 ####[facility] [address] [place], [address] PT Coag (PPP) [Time] 31.9 s High 11.7-14.9 [facility] Comment on above: Order Comment: 411.2 Performed By: #### L 300.3900 ####[facility] [address], [address] Prothrombin timeOrdered By: Kvng Crisostomo on 05-01-2024 PT Coag (PPP) [Time] 31.9 s High 11.7-14.9 [facility] normalized rat io (INR) calculationOrdered By: Carlos Cavazos on 04-28-2024 INR Coag (Bld) [Relative time] 2.6 {INR} [facility] Prothrombin Time w/INRon INR Coag (PPP) [Relative time] 2.6 {INR} Normal [facility] Comment on above: Order Comment: 411-2 Performed By: #### L 300.3900 ####[facility] [address] [facility] [address] PT Coag (PPP) [Time] 27.3 s High 11.7-14.9 [facility] Comment on above: Order Comment: 411-2 Performed By: #### L 300.3900 ####[facility] [address] [facility] [address] Prothrombin timeOrdered By: Carlos Cavazos on 04-28-2024 PT Coag (PPP) [Time] 27.3 s High 11.7-14.9 [facility] normalized rat io (INR) calculationOrdered By: Kvng Crisostomo on 04-24-2024 INR Coag (Bld) [Relative time] 3.6 {INR} [facility] Prothrombin Time w/INRon INR Coag (PPP) [Relative time] 3.6 {INR} Normal [facility] Comment on above: Order Comment: 411.2 Performed By: #### L 300.3900 ####[facility] [address] [place], [address] PT Coag (PPP) [Time] 35.6 s High 11.7-14.9 [facility] Comment on above: Order Comment: 411.2 Performed By: #### L 300.3900 ####[facility] [address] [place], [address] Prothrombin timeOrdered By: Kvng Crisostomo on 04-24-2024 PT Coag (PPP) [Time] 35.6 s High 11.7-14.9 [facility] normalized rat io (INR) calculationOrdered By: Carlos Cavazos on 04-21-2024 INR Coag (Bld) [Relative time] 2.8 {INR} [facility] Prothrombin Time w/INRon INR Coag (PPP) [Relative time] 2.8 {INR} Normal [facility] Comment on above: Order Comment: 411-2 Performed By: #### L 300.3900 ####[facility] [address] [place], [place], [phone]) PT Coag (PPP) [Time] 29.4 s High 11.7-14.9 [facility] Comment on above: Order Comment: 411-2 Performed By: #### L 300.3900 ####[facility] [address] [place], [address] Prothrombin timeOrdered By: Carlos Cavazos on 04-21-2024 PT Coag (PPP) [Time] 29.4 s High 11.7-14.9 [facility] normalized rat io (INR) calculationOrdered By: Kvng Crisostomo on 04-17-2024 INR Coag (Bld) [Relative time] 3.1 {INR} [facility] Prothrombin Time w/INRon INR Coag (PPP) [Relative time] 3.1 {INR} Normal [facility] Comment on above: Order Comment: 411.2 Performed By: #### L 300.3900 ####[facility] [address] [place], [place], [phone] Prothrombin timeOrdered By: Kvng Crisostomo on 04-17-2024 PT Coag (PPP) [Time] 31.3 s High 11.7-14.9 [facility] Comment on above: Order Comment: 411.2 Performed By: #### L 300.3900 ####[facility] [address] [place], [place], [phone]) International normalized rat io (INR) calculationOrdered By: Kvng Crisostomo on 04-14-2024 INR Coag (Bld) [Relative time] 3.3 {INR} [facility] Prothrombin Time w/INRon INR Coag (PPP) [Relative time] 3.3 {INR} Normal [facility] Comment on above: Order Comment: 411.2 Performed By: #### L 300.3900 ####[facility] [address] [place] [phone] PT Coag (PPP) [Time] 33.2 s High 11.7-14.9 [facility] Comment on above: Order Comment: 411.2 Performed By: #### L 300.3900 ####[facility] [address] [place] [phone] Prothrombin timeOrdered By: Kvng Crisostomo on 04-14-2024 PT Coag (PPP) [Time] 33.2 s High 11.7-14.9 [facility] normalized rat io (INR) calculationOrdered By: Kvng Crisostomo on 04-10-2024 INR Coag (Bld) [Relative time] 2.8 {INR} [facility] Prothrombin Time w/INRon INR Coag (PPP) [Relative time] 2.8 {INR} Normal [facility] Comment on above: Order Comment: 411.2 Performed By: #### L 300.3900 ####[facility] [address] [facility] [address] PT Coag (PPP) [Time] 29.2 s High 11.7-14.9 [facility] Comment on above: Order Comment: 411.2 Performed By: #### L 300.3900 ####[facility] [address] [facility] [address] Prothrombin timeOrdered By: Kvng Crisostomo on 04-10-2024 PT Coag (PPP) [Time] 29.2 s High 11.7-14.9 [facility] normalized rat io (INR) calculationOrdered By: Carlos Cavazos on 04-07-2024 INR Coag (Bld) [Relative time] 2.7 {INR} [facility] Prothrombin Time w/INRon INR Coag (PPP) [Relative time] 2.7 {INR} Normal [facility] Comment on above: Order Comment: 411-2 Performed By: #### L 300.3900 ####[facility] [address] [place], [address] PT Coag (PPP) [Time] 28.1 s High 11.7-14.9 [facility] Comment on above: Order Comment: 411-2 Performed By: #### L 300.3900 ####[facility] [address] [place], [address] Prothrombin timeOrdered By: Carlos Cavazos on 04-07-2024 PT Coag (PPP) [Time] 28.1 s High 11.7-14.9 [facility] normalized rat io (INR) calculationOrdered By: Kvng Crisostomo on 04-04-2024 INR Coag (Bld) [Relative time] 2.8 {INR} [facility] Prothrombin Time w/INRon INR Coag (PPP) [Relative time] 2.8 {INR} Normal [facility] Comment on above: Order Comment: 411.2 Performed By: #### L 300.3900 ####[facility] [address] [place], [address] PT Coag (PPP) [Time] 28.9 s High 11.7-14.9 [facility] Comment on above: Order Comment: 411.2 Performed By: #### L 300.3900 ####[facility] [address] [place], [address] Prothrombin timeOrdered By: Kvng Crisostomo on 04-04-2024 PT Coag (PPP) [Time] 28.9 s High 11.7-14.9 [facility] normalized rat io (INR) calculationOrdered By: Carlos Cavazos on 03-31-2024 INR Coag (Bld) [Relative time] 2.6 {INR} [facility] Prothrombin Time w/INRon INR Coag (PPP) [Relative time] 2.6 {INR} Normal [facility] Comment on above: Order Comment: 411-2 Performed By: #### L 300.3900 ####[facility] [address] [place], [address] PT Coag (PPP) [Time] 27.3 s High 11.7-14.9 [facility] Comment on above: Order Comment: 411-2 Performed By: #### L 300.3900 ####[facility] [address] [place], [address] Prothrombin timeOrdered By: Carlos Cavazos on 03-31-2024 PT Coag (PPP) [Time] 27.3 s High 11.7-14.9 [facility] normalized rat io (INR) calculationOrdered By: [employer] on 03-27-2024 INR Coag (Bld) [Relative time] 2.2 {INR} [facility] Prothrombin Time w/INRon INR Coag (PPP) [Relative time] 2.2 {INR} Normal [facility] Comment on above: Order Comment: 411.2 Performed By: #### L 300.3900 ####[facility] [address] [place], [address] PT Coag (PPP) [Time] 24.3 s High 11.7-14.9 [facility] Comment on above: Order Comment: 411.2 Performed By: #### L 300.3900 ####[facility] [address] [place], [address] Prothrombin timeOrdered By: [employer] on 03-27-2024 PT Coag (PPP) [Time] 24.3 s High 11.7-14.9 [facility] normalized rat io (INR) calculationOrdered By: Kvng Crisostomo on 03-24-2024 INR Coag (Bld) [Relative time] 1.8 {INR} [facility] Prothrombin Time w/INRon INR Coag (PPP) [Relative time] 1.8 {INR} Normal [facility] Comment on above: Order Comment: 411.2 Performed By: #### L 300.3900 ####[facility] [address] [place], [place], [phone] PT Coag (PPP) [Time] 20.7 s High 11.7-14.9 [facility] Comment on above: Order Comment: 411.2 Performed By: #### L 300.3900 ####[facility] [address] [place], [address](260) Prothrombin timeOrdered By: Kvng Crisostomo on 03-24-2024 PT Coag (PPP) [Time] 20.7 s High 11.7-14.9 [facility] normalized rat io (INR) calculationOrdered By: [employer] on 03-20-2024 INR Coag (Bld) [Relative time] 1.8 {INR} [facility] Prothrombin Time w/INRon INR Coag (PPP) [Relative time] 1.8 {INR} Normal [facility] Comment on above: Order Comment: 411.2 Performed By: #### L 300.3900 ####[facility] [address] [place], [place], [phone] PT Coag (PPP) [Time] 20.9 s High 11.7-14.9 [facility] Comment on above: Order Comment: 411.2 Performed By: #### L 300.3900 ####[facility] [address] [place], [place], [phone] Prothrombin timeOrdered By: [employer] on 03-20-2024 PT Coag (PPP) [Time] 20.9 s High 11.7-14.9 [facility] normalized rat io (INR) calculationOrdered By: Kvng Crisostomo on 03-19-2024 INR Coag (Bld) [Relative time] 2.4 {INR} [facility] Prothrombin Time w/INRon INR Coag (PPP) [Relative time] 2.4 {INR} Normal [facility] Comment on above: Order Comment: 411.2 Performed By: #### L 300.3900 ####[facility] [address] [place], [address] PT Coag (PPP) [Time] 26.4 s High 11.7-14.9 [facility] Comment on above: Order Comment: 411.2 Performed By: #### L 300.3900 ####[facility] [address] [place], [place], [phone] Prothrombin timeOrdered By: Kvng Crisostomo on 03-19-2024 PT Coag (PPP) [Time] 26.4 s High 11.7-14.9 [facility] normalized rat io (INR) calculationOrdered By: [employer] on 03-18-2024 INR Coag (Bld) [Relative time] 3.2 {INR} [facility] Prothrombin Time w/INRon INR Coag (PPP) [Relative time] 3.2 {INR} Normal [facility] Comment on above: Order Comment: 411.2 Performed By: #### L 300.3900 ####[facility] [address] [place], [address] PT Coag (PPP) [Time] 32.3 s High 11.7-14.9 [facility] Comment on above: Order Comment: 411.2 Performed By: #### L 300.3900 ####[facility] [address] [place], [place], [phone] Prothrombin timeOrdered By: [employer] on 03-18-2024 PT Coag (PPP) [Time] 32.3 s High 11.7-14.9 [facility] normalized rat io (INR) calculationOrdered By: [employer] on 03-17-2024 INR Coag (Bld) [Relative time] 3.6 {INR} [facility] Prothrombin Time w/INRon INR Coag (PPP) [Relative time] 3.6 {INR} Normal [facility] Comment on above: Order Comment: 411.2 Performed By: #### L 300.3900 ####[facility] [address] [place], [place], [phone]([phone] PT Coag (PPP) [Time] 35.7 s High 11.7-14.9 [facility] Comment on above: Order Comment: 411.2 Performed By: #### L 300.3900 ####[facility] [address] [place], [place], [phone] Prothrombin timeOrdered By: [employer] on 03-17-2024 PT Coag (PPP) [Time] 35.7 s High 11.7-14.9 [facility] normalized rat io (INR) calculationOrdered By: Carlos Cavazos on 03-14-2024 INR Coag (Bld) [Relative time] 3.5 {INR} [facility] Prothrombin Time w/INRon INR Coag (PPP) [Relative time] 3.5 {INR} Normal [facility] Comment on above: Order Comment: 411-2 Performed By: #### L 300.3900 ####[facility] [address] [place], [address] PT Coag (PPP) [Time] 35.0 s High 11.7-14.9 [facility] Comment on above: Order Comment: 411-2 Performed By: #### L 300.3900 ####[facility] [address] [place], [place], [phone]([phone] Prothrombin timeOrdered By: Carlos Cavazos on 03-14-2024 PT Coag (PPP) [Time] 35.0 s High 11.7-14.9 [facility] normalized rat io (INR) calculationOrdered By: [employer] on 03-13-2024 INR Coag (Bld) [Relative time] 3.2 {INR} [facility] Prothrombin Time w/INRon INR Coag (PPP) [Relative time] 3.2 {INR} Normal [facility] Comment on above: Performed By: #### L 300.3900 ####[facility] [address] [place], [address] PT Coag (PPP) [Time] 32.2 s High 11.7-14.9 [facility] Comment on above: Performed By: #### L 300.3900 ####[facility] [address] [place], [address] Prothrombin timeOrdered By: [employer] on 03-13-2024 PT Coag (PPP) [Time] 32.2 s High 11.7-14.9 [facility] Prothrombin Time w/INRon INR Coag (PPP) [Relative time] 2.6 {INR} Normal [facility] Comment on above: Order Comment: 411.2 Performed By: #### L 300.3900 ####[facility] [address] [place], [address] PT Coag (PPP) [Time] 27.7 s High 11.7-14.9 [facility] Comment on above: Order Comment: 411.2 Performed By: #### L 300.3900 ####[facility] [address] [place], [address] Prothrombin Time w/INRon INR Coag (PPP) [Relative time] 3.1 {INR} Normal [facility] Comment on above: Order Comment: 411.2 Performed By: #### L 300.3900 ####[facility] [address] [place], [address] PT Coag (PPP) [Time] 31.4 s High 11.7-14.9 [facility] Comment on above: Order Comment: 411.2 Performed By: #### L 300.3900 ####[facility] [address] [place], [address] Prothrombin Time w/INRon INR Coag (PPP) [Relative time] 3.1 {INR} Normal [facility] Comment on above: Order Comment: 411.2 Performed By: #### L 300.3900 ####[facility] [address] [place], [address] PT Coag (PPP) [Time] 31.8 s High 11.7-14.9 [facility] Comment on above: Order Comment: 411.2 Performed By: #### L 300.3900 ####[facility] [address] [place], [address] Prothrombin Time w/INRon INR Coag (PPP) [Relative time] 3.0 {INR} Normal [facility] Comment on above: Order Comment: 411.2 Performed By: #### L 300.3900 ####[facility] [address] [place], [address] PT Coag (PPP) [Time] 30.6 s High 11.7-14.9 [facility] Comment on above: Order Comment: 411.2 Performed By: #### L 300.3900 ####[facility] [address] [place], [address] Prothrombin Time w/INRon INR Coag (PPP) [Relative time] 2.6 {INR} Normal [facility] Comment on above: Order Comment: 411-2 Performed By: #### L 300.3900 ####[facility] [address] [place], [address] PT Coag (PPP) [Time] 27.5 s High 11.7-14.9 [facility] Comment on above: Order Comment: 411-2 Performed By: #### L 300.3900 ####[facility] [address] [place], [address] Prothrombin Time w/INRon INR Coag (PPP) [Relative time] 2.3 {INR} Normal [facility] Comment on above: Order Comment: 411.2 Performed By: #### L 300.3900 ####[facility] [address] [place], [address] PT Coag (PPP) [Time] 25.5 s High 11.7-14.9 [facility] Comment on above: Order Comment: 411.2 Performed By: #### L 300.3900 ####[facility] [address] [place], [address] Prothrombin Time w/INRon INR Coag (PPP) [Relative time] 1.9 {INR} Normal [facility] Comment on above: Order Comment: 411.2 Performed By: #### L 300.3900 ####[facility] [address] [place], [address] PT Coag (PPP) [Time] 21.3 s High 11.7-14.9 [facility] Comment on above: Order Comment: 411.2 Performed By: #### L 300.3900 ####[facility] [address] [place], [address] Prothrombin Time w/INRon INR Coag (PPP) [Relative time] 2.5 {INR} Normal [facility] Comment on above: Order Comment: 411.2 Performed By: #### L 300.3900 ####[facility] [address] [place], [address] PT Coag (PPP) [Time] 26.5 s High 11.7-14.9 [facility] Comment on above: Order Comment: 411.2 Performed By: #### L 300.3900 ####[facility] [address] [place], [address] Prothrombin Time w/INRon INR Coag (PPP) [Relative time] 2.9 {INR} Normal [facility] Comment on above: Order Comment: 411.2 Performed By: #### L 300.3900 ####[facility] [address] [place], [address] PT Coag (PPP) [Time] 30.2 s High 11.7-14.9 [facility] Comment on above: Order Comment: 411.2 Performed By: #### L 300.3900 ####[facility] [address] [place], [address] Prothrombin Time w/INRon INR Coag (PPP) [Relative time] 3.6 {INR} Normal [facility] Comment on above: Order Comment: 411.2 Performed By: #### L 300.3900 ####[facility] [address] [place], [address] PT Coag (PPP) [Time] 35.3 s High 11.7-14.9 [facility] Comment on above: Order Comment: 411.2 Performed By: #### L 300.3900 ####[facility] [address] [place], [address] Prothrombin Time w/INRon INR Coag (PPP) [Relative time] 2.8 {INR} Normal [facility] Comment on above: Order Comment: 411-2 Performed By: #### L 300.3900 ####[facility] [address] [place], [address] PT Coag (PPP) [Time] 29.4 s High 11.7-14.9 [facility] Comment on above: Order Comment: 411-2 Performed By: #### L 300.3900 ####[facility] [address] [place], [address] Prothrombin Time w/INRon INR Coag (PPP) [Relative time] 2.9 {INR} Normal [facility] Comment on above: Order Comment: 411.2 Performed By: #### L 300.3900 ####[facility] [address] [place], [address] PT Coag (PPP) [Time] 29.9 s High 11.7-14.9 [facility] Comment on above: Order Comment: 411.2 Performed By: #### L 300.3900 ####[facility] [address] [place], [address] Prothrombin Time w/INRon INR Coag (PPP) [Relative time] 2.2 {INR} Normal [facility] Comment on above: Order Comment: 411.2 Performed By: #### L 300.3900 ####[facility] [address] [place], [address] PT Coag (PPP) [Time] 24.1 s High 11.7-14.9 [facility] Comment on above: Order Comment: 411.2 Performed By: #### L 300.3900 ####[facility] [address] [place], [address] Prothrombin Time w/INRon INR Coag (PPP) [Relative time] 2.1 {INR} Normal [facility] Comment on above: Order Comment: 411-2 Performed By: #### L 300.3900 ####[facility] [address] [place], [address] PT Coag (PPP) [Time] 23.0 s High 11.7-14.9 [facility] Comment on above: Order Comment: 411-2 Performed By: #### L 300.3900 ####[facility] [address] [place], [address] Prothrombin Time w/INRon INR Coag (PPP) [Relative time] 2.8 {INR} Normal [facility] Comment on above: Performed By: #### L 300.3900 ####[facility] [address] [place], [address] PT Coag (PPP) [Time] 28.9 s High 11.7-14.9 [facility] Comment on above: Performed By: #### L 300.3900 ####[facility] [address] [place], [address] Protime w/INR Fingerstickon 01-29-2024 INR Coag (PPP) [Relative time] 3.2 {INR} Normal [facility] Comment on above: Result Comment: Crit ical Value > 4.0 Performed By: #### L 9200.0000 ####[facility] [address] [place], [address] Protime Coagsen 31.8 SEC High 11.7-14.9 [facility] Comment on above: Performed By: #### L 9200.0000 ####[facility] [address] [place], [address] KEPPRA (LEVETIRACETAM)on KEPPRA 35.2 ug/mL Normal 10.0-40.0 [facility] Comment on above: Order Comment: 411-2 Result Comment: Perf ormed at: - [facility] [id number] Director: Alpesh Vázquez MD, Phone: [phone] Performed By: #### L 300.3900, L3310.0000 ####[facility] [address] [place], [address] Prothrombin Time w/INRon INR Coag (PPP) [Relative time] 2.9 {INR} Normal [facility] Comment on above: Order Comment: 411-2 Performed By: #### L 300.3900, L3310.0000 ####[facility] [address] [place], [address] PT Coag (PPP) [Time] 30.1 s High 11.7-14.9 [facility] Comment on above: Order Comment: 411-2 Performed By: #### L 300.3900, L3310.0000 ####[facility] [address] [place], [address] Prothrombin Time w/INRon INR Coag (PPP) [Relative time] 2.3 {INR} Normal [facility] Comment on above: Order Comment: 411-2 Performed By: #### L 300.3900 ####[facility] [address] [place], [address] PT Coag (PPP) [Time] 25.2 s High 11.7-14.9 [facility] Comment on above: Order Comment: 411-2 Performed By: #### L 300.3900 ####[facility] [address] [place], [address] Prothrombin Time w/INRon INR Coag (PPP) [Relative time] 2.7 {INR} Normal [facility] Comment on above: Order Comment: 411-2 Performed By: #### L 300.3900 ####[facility] [address] [place], [address] PT Coag (PPP) [Time] 28.3 s High 11.7-14.9 [facility] Comment on above: Order Comment: 411-2 Performed By: #### L 300.3900 ####[facility] [address] [place], [address] Protime w/INR Fingerstickon 01-10-2024 INR Coag (PPP) [Relative time] 3.5 {INR} Normal [facility] Comment on above: Result Comment: Crit ical Value > 4.0 Performed By: #### L 9200.0000 ####[facility] [address] [place], [address] Protime Coagsen 34.2 SEC High 11.7-14.9 [facility] Comment on above: Performed By: #### L 9200.0000 ####[facility] [address] [place], [address] CBC-Complete Blood Cnt No Di ffon 01-08-2024 Erythrocyte distribution width (RBC) [Ratio] 15.2 % High 11.6-14.6 [facility] Comment on above: Order Comment: 411-2 Performed By: #### L 100.0500, L300.3900 ####[facility] [address] [place], [address] Hematocrit (Bld) [Volume fraction] 39.0 % Low 40-54 [facility] Comment on above: Order Comment: 411-2 Performed By: #### L 100.0500, L300.3900 ####[facility] [address] [place], [address] Hemoglobin (Bld) [Mass/Vol] 12.1 g/dL Low 13.0-16.5 [facility] Comment on above: Order Comment: 411-2 Performed By: #### L 100.0500, L300.3900 ####[facility] [address] [place], [address] MCH (RBC) [Entitic mass] 27.1 pg Normal 27.0-32.0 [facility] Comment on above: Order Comment: 411-2 Performed By: #### L 100.0500, L300.3900 ####[facility] [address] [place], [address] MCHC (RBC) [Mass/Vol] 31.0 g/dL Low 32-36 [facility] Comment on above: Order Comment: 411-2 Performed By: #### L 100.0500, L300.3900 ####[facility] [address] [place], [address] MCV (RBC) [Entitic vol] 87.2 fL Normal 80-94 [facility] Comment on above: Order Comment: 411-2 Performed By: #### L 100.0500, L300.3900 ####[facility] [address] [place], [address] Platelet mean volume (Bld) [Entitic vol] 10.8 fL Normal 6.2-12.0 [facility] Comment on above: Order Comment: 411-2 Performed By: #### L 100.0500, L300.3900 ####[facility] [address] [place], [address] Platelets (Bld) [#/Vol] 300 10*3/uL Normal 150-450 [facility] Comment on above: Order Comment: 411-2 Performed By: #### L 100.0500, L300.3900 ####[facility] [address] [place], [address] RBC (Bld) [#/Vol] 4.47 10*6/uL Low 4.6-6.2 [facility] Comment on above: Order Comment: 411-2 Performed By: #### L 100.0500, L300.3900 ####[facility] [address] [place], [address] RDW SD 48.7 fl High 35.1-43.9 [facility] Comment on above: Order Comment: 411-2 Performed By: #### L 100.0500, L300.3900 ####[facility] [address] [place], [address] WBC (Bld) [#/Vol] 13.0 10*3/uL High 4.4-11.0 [facility] Comment on above: Order Comment: 411-2 Performed By: #### L 100.0500, L300.3900 ####[facility] [address] [place], [address] Prothrombin Time w/INRon INR Coag (PPP) [Relative time] 3.9 {INR} Normal [facility] Comment on above: Order Comment: 411-2 Performed By: #### L 100.0500, L300.3900 ####[facility] [address] [place], [address] PT Coag (PPP) [Time] 37.8 s High 11.7-14.9 [facility] Comment on above: Order Comment: 411-2 Performed By: #### L 100.0500, L300.3900 ####[facility] [address] [place], [address] Urine Cultureon 01-03-2024 URC Culture exhibits no growth. Normal [facility] Comment on above: Performed By: #### M 100.2200, L400.0001, L300.3900 ####[facility] [address] [place], [address] Prothrombin Time w/INRon INR Coag (PPP) [Relative time] 3.0 {INR} Normal [facility] Comment on above: Performed By: #### M 100.2200, L400.0001, L300.3900 ####[facility] [address] [place], [address] PT Coag (PPP) [Time] 30.7 s High 11.7-14.9 [facility] Comment on above: Performed By: #### M 100.2200, L400.0001, L300.3900 ####[facility] [address] [place], [address] Urinalysis, Completeon 01-01 RBC 0-5 SEEN Normal 0-5 [facility] Comment on above: Order Comment: CLEAN CATCH Performed By: #### M 100.2200, L400.0001, L300.3900 ####[facility] [address] [place], [address] BACTERIA 0 SEEN Normal None Seen [facility] Comment on above: Order Comment: CLEAN CATCH Performed By: #### M 100.2200, L400.0001, L300.3900 ####[facility] [address] [place], [address] EPI,SQUAMOUS 0 SEEN Normal 0-5 [facility] Comment on above: Order Comment: CLEAN CATCH Performed By: #### M 100.2200, L400.0001, L300.3900 ####[facility] [address] [place], [address] Mucus Ql (Urine sed) 0 SEEN Normal [facility] Comment on above: Order Comment: CLEAN CATCH Performed By: #### M 100.2200, L400.0001, L300.3900 ####[facility] [address] [place], [address] WBC 0 SEEN Normal 0-5 [facility] Comment on above: Order Comment: CLEAN CATCH Performed By: #### M 100.2200, L400.0001, L300.3900 ####[facility] [address] [place], [address] Basic Metabolic Profile (BMP )on 01-01-2024 BUN/CRE 25.0 RATIO High 10-20 [facility] Comment on above: Order Comment: 411.2 Performed By: #### L 300.3900, L100.0500, L500.2500 ####[facility] [address] [place], [address] CA,Total 9.1 mg/dL Normal 8.5-10.1 [facility] Comment on above: Order Comment: 411.2 Performed By: #### L 300.3900, L100.0500, L500.2500 ####[facility] [address] [place], [address] Chloride [Moles/Vol] 104 mmol/L Normal 98-107 [facility] Comment on above: Order Comment: 411.2 Performed By: #### L 300.3900, L100.0500, L500.2500 ####[facility] [address] [place], [address] CO2 [Moles/Vol] 24.0 mmol/L Normal 21.0-32.0 [facility] Comment on above: Order Comment: 411.2 Performed By: #### L 300.3900, L100.0500, L500.2500 ####[facility] [address] [place], [address] Creatinine [Mass/Vol] 0.84 mg/dL Normal 0.70-1.30 [facility] Comment on above: Order Comment: 411.2 Result Comment: The validity of the calculated GFR GFRAA in patients over70 years has not been determined. Clinical correlation isessential. Performed By: #### L 300.3900, L100.0500, L500.2500 ####[facility] [address] [place], [address] EST GFR - AA 116 mL/min Normal >60 [facility] Comment on above: Order Comment: 411.2 Result Comment: Afri can [place] GFR Calc Performed By: #### L 300.3900, L100.0500, L500.2500 ####[facility] [address] [place], [address] GAP 9 Normal 5-15 [facility] Comment on above: Order Comment: 411.2 Performed By: #### L 300.3900, L100.0500, L500.2500 ####[facility] [address] [place], [address] GFR/1.73 sq M.predicted among non-blacks MDRD (S/P/Bld) [Vol rate/Area] 95 mL/min/{1.73_m2} Normal >60 [facility] Comment on above: Order Comment: 411.2 Result Comment: Non- GFR Calc Performed By: #### L 300.3900, L100.0500, L500.2500 ####[facility] [address] [place], [address] Glucose [Mass/Vol] 92 mg/dL Normal 74-106 [facility] Comment on above: Order Comment: 411.2 Performed By: #### L 300.3900, L100.0500, L500.2500 ####[facility] [address] [place], [address] Potassium [Moles/Vol] 4.2 mmol/L Normal 3.5-5.1 [facility] Comment on above: Order Comment: 411.2 Performed By: #### L 300.3900, L100.0500, L500.2500 ####[facility] [address] [place], [address] Sodium [Moles/Vol] 137 mmol/L Normal 136-145 [facility] Comment on above: Order Comment: 411.2 Performed By: #### L 300.3900, L100.0500, L500.2500 ####[facility] [address] [place], [address] Urea nitrogen [Mass/Vol] 21 mg/dL High 7-18 [facility] Comment on above: Order Comment: 411.2 Performed By: #### L 300.3900, L100.0500, L500.2500 ####[facility] [address] [place], [address] CBC-Complete Blood Cnt No Di ffon 01-01-2024 Erythrocyte distribution width (RBC) [Ratio] 14.9 % High 11.6-14.6 [facility] Comment on above: Order Comment: 411.2 Performed By: #### L 300.3900, L100.0500, L500.2500 ####[facility] [address] [place], [address] Hematocrit (Bld) [Volume fraction] 38.4 % Low 40-54 [facility] Comment on above: Order Comment: 411.2 Performed By: #### L 300.3900, L100.0500, L500.2500 ####[facility] [address] [place], [address] Hemoglobin (Bld) [Mass/Vol] 12.2 g/dL Low 13.0-16.5 [facility] Comment on above: Order Comment: 411.2 Performed By: #### L 300.3900, L100.0500, L500.2500 ####[facility] [address] [place], [address] MCH (RBC) [Entitic mass] 27.1 pg Normal 27.0-32.0 [facility] Comment on above: Order Comment: 411.2 Performed By: #### L 300.3900, L100.0500, L500.2500 ####[facility] [address] [place], [address] MCHC (RBC) [Mass/Vol] 31.8 g/dL Low 32-36 [facility] Comment on above: Order Comment: 411.2 Performed By: #### L 300.3900, L100.0500, L500.2500 ####[facility] [address] [place], [address] MCV (RBC) [Entitic vol] 85.3 fL Normal 80-94 [facility] Comment on above: Order Comment: 411.2 Performed By: #### L 300.3900, L100.0500, L500.2500 ####[facility] [address] [place], [address] Platelet mean volume (Bld) [Entitic vol] 10.1 fL Normal 6.2-12.0 [facility] Comment on above: Order Comment: 411.2 Performed By: #### L 300.3900, L100.0500, L500.2500 ####[facility] [address] [place], [address] Platelets (Bld) [#/Vol] 287 10*3/uL Normal 150-450 [facility] Comment on above: Order Comment: 411.2 Performed By: #### L 300.3900, L100.0500, L500.2500 ####[facility] [address] [place], [address] RBC (Bld) [#/Vol] 4.50 10*6/uL Low 4.6-6.2 [facility] Comment on above: Order Comment: 411.2 Performed By: #### L 300.3900, L100.0500, L500.2500 ####[facility] [address] [place], [address] RDW SD 46.5 fl High 35.1-43.9 [facility] Comment on above: Order Comment: 411.2 Performed By: #### L 300.3900, L100.0500, L500.2500 ####[facility] [address] [place], [address] WBC (Bld) [#/Vol] 14.8 10*3/uL High 4.4-11.0 [facility] Comment on above: Order Comment: 411.2 Performed By: #### L 300.3900, L100.0500, L500.2500 ####[facility] [address] [place], [address] Prothrombin Time w/INRon INR Coag (PPP) [Relative time] 2.5 {INR} Normal [facility] Comment on above: Order Comment: 411.2 Performed By: #### L 300.3900, L100.0500, L500.2500 ####[facility] [address] [place], [address] PT Coag (PPP) [Time] 26.6 s High 11.7-14.9 [facility] Comment on above: Order Comment: 411.2 Performed By: #### L 300.3900, L100.0500, L500.2500 ####[facility] [address] [place], [address] Prothrombin Time w/INRon INR Coag (PPP) [Relative time] 2.1 {INR} Normal [facility] Comment on above: Order Comment: 411.2 Performed By: #### L 300.3900 ####[facility] [address] [place], [address] PT Coag (PPP) [Time] 23.5 s High 11.7-14.9 [facility] Comment on above: Order Comment: 411.2 Performed By: #### L 300.3900 ####[facility] [address] [place], [address] Prothrombin Time w/INRon INR Coag (PPP) [Relative time] 3.2 {INR} Normal [facility] Comment on above: Order Comment: 411-2 Performed By: #### L 300.3900 ####[facility] [address] [place], [address] PT Coag (PPP) [Time] 32.6 s High 11.7-14.9 [facility] Comment on above: Order Comment: 411-2 Performed By: #### L 300.3900 ####[facility] [address] [place], [address] Prothrombin Time w/INRon INR Coag (PPP) [Relative time] 2.6 {INR} Normal [facility] Comment on above: Order Comment: 411-2 Performed By: #### L 300.3900 ####[facility] [address] [place], [address] PT Coag (PPP) [Time] 27.4 s High 11.7-14.9 [facility] Comment on above: Order Comment: 411-2 Performed By: #### L 300.3900 ####[facility] [address] [place], [address] Basic Metabolic Profile (BMP )on 12-04-2023 BUN/CRE 26.8 RATIO High 10-20 [facility] Comment on above: Order Comment: 411.2 Performed By: #### L 100.0500, L500.2500 ####[facility] [address] [place], [address] CA,Total 8.8 mg/dL Normal 8.5-10.1 [facility] Comment on above: Order Comment: 411.2 Performed By: #### L 100.0500, L500.2500 ####[facility] [address] [place], [address] Chloride [Moles/Vol] 105 mmol/L Normal 98-107 [facility] Comment on above: Order Comment: 411.2 Performed By: #### L 100.0500, L500.2500 ####[facility] [address] [place], [address] CO2 [Moles/Vol] 27.0 mmol/L Normal 21.0-32.0 [facility] Comment on above: Order Comment: 411.2 Performed By: #### L 100.0500, L500.2500 ####[facility] [address] [place], [address] Creatinine [Mass/Vol] 0.90 mg/dL Normal 0.70-1.30 [facility] Comment on above: Order Comment: 411.2 Result Comment: The validity of the calculated GFR GFRAA in patients over70 years has not been determined. Clinical correlation isessential. Performed By: #### L 100.0500, L500.2500 ####[facility] [address] [place], [address] EST GFR - AA 107 mL/min Normal >60 [facility] Comment on above: Order Comment: 411.2 Result Comment: Afri can [place] GFR Calc Performed By: #### L 100.0500, L500.2500 ####[facility] [address] [place], [address] GAP 7 Normal 5-15 [facility] Comment on above: Order Comment: 411.2 Performed By: #### L 100.0500, L500.2500 ####[facility] [address] [place], [address] GFR/1.73 sq M.predicted among non-blacks MDRD (S/P/Bld) [Vol rate/Area] 89 mL/min/{1.73_m2} Normal >60 [facility] Comment on above: Order Comment: 411.2 Result Comment: Non- GFR Calc Performed By: #### L 100.0500, L500.2500 ####[facility] [address] [place], [address] Glucose [Mass/Vol] 92 mg/dL Normal 74-106 [facility] Comment on above: Order Comment: 411.2 Performed By: #### L 100.0500, L500.2500 ####[facility] [address] [place], [address] Potassium [Moles/Vol] 4.0 mmol/L Normal 3.5-5.1 [facility] Comment on above: Order Comment: 411.2 Performed By: #### L 100.0500, L500.2500 ####[facility] [address] [place], [address] Sodium [Moles/Vol] 139 mmol/L Normal 136-145 [facility] Comment on above: Order Comment: 411.2 Performed By: #### L 100.0500, L500.2500 ####[facility] [address] [place], [address] Urea nitrogen [Mass/Vol] 24 mg/dL High 7-18 [facility] Comment on above: Order Comment: 411.2 Performed By: #### L 100.0500, L500.2500 ####[facility] [address] [place], [address] CBC-Complete Blood Cnt No Di ffon 12-04-2023 Erythrocyte distribution width (RBC) [Ratio] 14.9 % High 11.6-14.6 [facility] Comment on above: Order Comment: 411.2 Performed By: #### L 100.0500, L500.2500 ####[facility] [address] [place], [address] Hematocrit (Bld) [Volume fraction] 39.3 % Low 40-54 [facility] Comment on above: Order Comment: 411.2 Performed By: #### L 100.0500, L500.2500 ####[facility] [address] [place], [address] Hemoglobin (Bld) [Mass/Vol] 12.6 g/dL Low 13.0-16.5 [facility] Comment on above: Order Comment: 411.2 Performed By: #### L 100.0500, L500.2500 ####[facility] [address] [place], [address] MCH (RBC) [Entitic mass] 27.3 pg Normal 27.0-32.0 [facility] Comment on above: Order Comment: 411.2 Performed By: #### L 100.0500, L500.2500 ####[facility] [address] [place], [address] MCHC (RBC) [Mass/Vol] 32.1 g/dL Normal 32-36 [facility] Comment on above: Order Comment: 411.2 Performed By: #### L 100.0500, L500.2500 ####[facility] [address] [place], [address] MCV (RBC) [Entitic vol] 85.1 fL Normal 80-94 [facility] Comment on above: Order Comment: 411.2 Performed By: #### L 100.0500, L500.2500 ####[facility] [address] [place], [address] Platelet mean volume (Bld) [Entitic vol] 9.8 fL Normal 6.2-12.0 [facility] Comment on above: Order Comment: 411.2 Performed By: #### L 100.0500, L500.2500 ####[facility] [address] [place], [address] Platelets (Bld) [#/Vol] 298 10*3/uL Normal 150-450 [facility] Comment on above: Order Comment: 411.2 Performed By: #### L 100.0500, L500.2500 ####[facility] [address] [place], [address] RBC (Bld) [#/Vol] 4.62 10*6/uL Normal 4.6-6.2 [facility] Comment on above: Order Comment: 411.2 Performed By: #### L 100.0500, L500.2500 ####[facility] [address] [place], [address] RDW SD 46.5 fl High 35.1-43.9 [facility] Comment on above: Order Comment: 411.2 Performed By: #### L 100.0500, L500.2500 ####[facility] [address] [place], [address] WBC (Bld) [#/Vol] 10.3 10*3/uL Normal 4.4-11.0 [facility] Comment on above: Order Comment: 411.2 Performed By: #### L 100.0500, L500.2500 ####[facility] [address] [place], [address] M100.019on 12-03-2023 M100.019 ORDERED ONLY RSV AND COVID, NO FLU SARS-CoV-2 (COVID 19) Negative Normal [facility] Comment on above: Performed By: #### M 100.642, M100.019, L300.3900 ####[facility] [address] [place], [address] M100.642on 12-03-2023 M100.642 Negative Normal [facility] Comment on above: Performed By: #### M 100.642, M100.019, L300.3900 ####[facility] [address] [place], [address] Prothrombin Time w/INRon INR Coag (PPP) [Relative time] 2.2 {INR} Normal [facility] Comment on above: Order Comment: 411.2 Performed By: #### M 100.642, M100.019, L300.3900 ####[facility] [address] [place], [address] PT Coag (PPP) [Time] 24.2 s High 11.7-14.9 [facility] Comment on above: Order Comment: 411.2 Performed By: #### M 100.642, M100.019, L300.3900 ####[facility] [address] [place], [address] Basic Metabolic Profile (BMP )on 11-30-2023 BUN/CRE 18.4 RATIO Normal 10-20 [facility] Comment on above: Order Comment: 411-2 Performed By: #### L 500.2500, L100.0500 ####[facility] [address] [place], [address] CA,Total 8.7 mg/dL Normal 8.5-10.1 [facility] Comment on above: Order Comment: 411-2 Performed By: #### L 500.2500, L100.0500 ####[facility] [address] [place], [address] Chloride [Moles/Vol] 106 mmol/L Normal 98-107 [facility] Comment on above: Order Comment: 411-2 Performed By: #### L 500.2500, L100.0500 ####[facility] [address] [place], [address] CO2 [Moles/Vol] 26.0 mmol/L Normal 21.0-32.0 [facility] Comment on above: Order Comment: 411-2 Performed By: #### L 500.2500, L100.0500 ####[facility] [address] [place], [address] Creatinine [Mass/Vol] 0.87 mg/dL Normal 0.70-1.30 [facility] Comment on above: Order Comment: 411-2 Result Comment: The validity of the calculated GFR GFRAA in patients over70 years has not been determined. Clinical correlation isessential. Performed By: #### L 500.2500, L100.0500 ####[facility] [address] [place], [address] EST GFR - AA 111 mL/min Normal >60 [facility] Comment on above: Order Comment: 411-2 Result Comment: Afri can [place] GFR Calc Performed By: #### L 500.2500, L100.0500 ####[facility] [address] [place], [address] GAP 6 Normal 5-15 [facility] Comment on above: Order Comment: 411-2 Performed By: #### L 500.2500, L100.0500 ####[facility] [address] [place], [address] GFR/1.73 sq M.predicted among non-blacks MDRD (S/P/Bld) [Vol rate/Area] 92 mL/min/{1.73_m2} Normal >60 [facility] Comment on above: Order Comment: 411-2 Result Comment: Non- GFR Calc Performed By: #### L 500.2500, L100.0500 ####[facility] [address] [place], [address] Glucose [Mass/Vol] 96 mg/dL Normal 74-106 [facility] Comment on above: Order Comment: 411-2 Performed By: #### L 500.2500, L100.0500 ####[facility] [address] [place], [address] Potassium [Moles/Vol] 4.2 mmol/L Normal 3.5-5.1 [facility] Comment on above: Order Comment: 411-2 Performed By: #### L 500.2500, L100.0500 ####[facility] [address] [place], [address] Sodium [Moles/Vol] 138 mmol/L Normal 136-145 [facility] Comment on above: Order Comment: 411-2 Performed By: #### L 500.2500, L100.0500 ####[facility] [address] [place], [address] Urea nitrogen [Mass/Vol] 16 mg/dL Normal 7-18 [facility] Comment on above: Order Comment: 411-2 Performed By: #### L 500.2500, L100.0500 ####[facility] [address] [place], [address] CBC-Complete Blood Cnt No Di ffon 11-30-2023 Erythrocyte distribution width (RBC) [Ratio] 15.2 % High 11.6-14.6 [facility] Comment on above: Performed By: #### L 500.2500, L100.0500 ####[facility] [address] [place], [address] Hematocrit (Bld) [Volume fraction] 39.5 % Low 40-54 [facility] Comment on above: Performed By: #### L 500.2500, L100.0500 ####[facility] [address] [place], [address] Hemoglobin (Bld) [Mass/Vol] 12.3 g/dL Low 13.0-16.5 [facility] Comment on above: Performed By: #### L 500.2500, L100.0500 ####[facility] [address] [place], [address] MCH (RBC) [Entitic mass] 27.0 pg Normal 27.0-32.0 [facility] Comment on above: Performed By: #### L 500.2500, L100.0500 ####[facility] [address] [place], [address] MCHC (RBC) [Mass/Vol] 31.1 g/dL Low 32-36 [facility] Comment on above: Performed By: #### L 500.2500, L100.0500 ####[facility] [address] [place], [address] MCV (RBC) [Entitic vol] 86.6 fL Normal 80-94 [facility] Comment on above: Performed By: #### L 500.2500, L100.0500 ####[facility] [address] [place], [address] Platelet mean volume (Bld) [Entitic vol] 10.3 fL Normal 6.2-12.0 [facility] Comment on above: Performed By: #### L 500.2500, L100.0500 ####[facility] [address] [place], [address] Platelets (Bld) [#/Vol] 301 10*3/uL Normal 150-450 [facility] Comment on above: Performed By: #### L 500.2500, L100.0500 ####[facility] [address] [place], [address] RBC (Bld) [#/Vol] 4.56 10*6/uL Low 4.6-6.2 [facility] Comment on above: Performed By: #### L 500.2500, L100.0500 ####[facility] [address] [place], [address] RDW SD 48.2 fl High 35.1-43.9 [facility] Comment on above: Performed By: #### L 500.2500, L100.0500 ####[facility] [address] [place], [address] WBC (Bld) [#/Vol] 13.8 10*3/uL High 4.4-11.0 [facility] Comment on above: Performed By: #### L 500.2500, L100.0500 ####[facility] [address] [place], [address] Basic Metabolic Profile (BMP )on 11-27-2023 BUN/CRE 21.2 RATIO High 10-20 [facility] Comment on above: Order Comment: 411.2 Performed By: #### L 500.2500, L100.0500 ####[facility] [address] [place], [address] CA,Total 8.9 mg/dL Normal 8.5-10.1 [facility] Comment on above: Order Comment: 411.2 Performed By: #### L 500.2500, L100.0500 ####[facility] [address] [place], [address] Chloride [Moles/Vol] 105 mmol/L Normal 98-107 [facility] Comment on above: Order Comment: 411.2 Performed By: #### L 500.2500, L100.0500 ####[facility] [address] [place], [address] CO2 [Moles/Vol] 30.0 mmol/L Normal 21.0-32.0 [facility] Comment on above: Order Comment: 411.2 Performed By: #### L 500.2500, L100.0500 ####[facility] [address] [place], [address] Creatinine [Mass/Vol] 0.85 mg/dL Normal 0.70-1.30 [facility] Comment on above: Order Comment: 411.2 Result Comment: The validity of the calculated GFR GFRAA in patients over70 years has not been determined. Clinical correlation isessential. Performed By: #### L 500.2500, L100.0500 ####[facility] [address] [place], [address] EST GFR - AA 114 mL/min Normal >60 [facility] Comment on above: Order Comment: 411.2 Result Comment: Afri can [place] GFR Calc Performed By: #### L 500.2500, L100.0500 ####[facility] [address] [place], [address] GAP 5 Normal 5-15 [facility] Comment on above: Order Comment: 411.2 Performed By: #### L 500.2500, L100.0500 ####[facility] [address] [place], [address] GFR/1.73 sq M.predicted among non-blacks MDRD (S/P/Bld) [Vol rate/Area] 94 mL/min/{1.73_m2} Normal >60 [facility] Comment on above: Order Comment: 411.2 Result Comment: Non- GFR Calc Performed By: #### L 500.2500, L100.0500 ####[facility] [address] [place], [address] Glucose [Mass/Vol] 91 mg/dL Normal 74-106 [facility] Comment on above: Order Comment: 411.2 Performed By: #### L 500.2500, L100.0500 ####[facility] [address] [place], [address] Potassium [Moles/Vol] 4.3 mmol/L Normal 3.5-5.1 [facility] Comment on above: Order Comment: 411.2 Performed By: #### L 500.2500, L100.0500 ####[facility] [address] [place], [address] Sodium [Moles/Vol] 140 mmol/L Normal 136-145 [facility] Comment on above: Order Comment: 411.2 Performed By: #### L 500.2500, L100.0500 ####[facility] [address] [place], [address] Urea nitrogen [Mass/Vol] 18 mg/dL Normal 7-18 [facility] Comment on above: Order Comment: 411.2 Performed By: #### L 500.2500, L100.0500 ####[facility] [address] [place], [address] CBC-Complete Blood Cnt No Di ffon 11-27-2023 Erythrocyte distribution width (RBC) [Ratio] 15.0 % High 11.6-14.6 [facility] Comment on above: Order Comment: 411.2 Performed By: #### L 500.2500, L100.0500 ####[facility] [address] [place], [address] Hematocrit (Bld) [Volume fraction] 42.7 % Normal 40-54 [facility] Comment on above: Order Comment: 411.2 Performed By: #### L 500.2500, L100.0500 ####[facility] [address] [place], [address] Hemoglobin (Bld) [Mass/Vol] 13.0 g/dL Normal 13.0-16.5 [facility] Comment on above: Order Comment: 411.2 Performed By: #### L 500.2500, L100.0500 ####[facility] [address] [place], [address] MCH (RBC) [Entitic mass] 26.9 pg Low 27.0-32.0 [facility] Comment on above: Order Comment: 411.2 Performed By: #### L 500.2500, L100.0500 ####[facility] [address] [place], [address] MCHC (RBC) [Mass/Vol] 30.4 g/dL Low 32-36 [facility] Comment on above: Order Comment: 411.2 Performed By: #### L 500.2500, L100.0500 ####[facility] [address] [place], [address] MCV (RBC) [Entitic vol] 88.4 fL Normal 80-94 [facility] Comment on above: Order Comment: 411.2 Performed By: #### L 500.2500, L100.0500 ####[facility] [address] [place], [address] Platelet mean volume (Bld) [Entitic vol] 10.2 fL Normal 6.2-12.0 [facility] Comment on above: Order Comment: 411.2 Performed By: #### L 500.2500, L100.0500 ####[facility] [address] [place], [address] Platelets (Bld) [#/Vol] 328 10*3/uL Normal 150-450 [facility] Comment on above: Order Comment: 411.2 Performed By: #### L 500.2500, L100.0500 ####[facility] [address] [place], [address] RBC (Bld) [#/Vol] 4.83 10*6/uL Normal 4.6-6.2 [facility] Comment on above: Order Comment: 411.2 Performed By: #### L 500.2500, L100.0500 ####[facility] [address] [place], [address] RDW SD 48.8 fl High 35.1-43.9 [facility] Comment on above: Order Comment: 411.2 Performed By: #### L 500.2500, L100.0500 ####[facility] [address] [place], [address] WBC (Bld) [#/Vol] 12.6 10*3/uL High 4.4-11.0 [facility] Comment on above: Order Comment: 411.2 Performed By: #### L 500.2500, L100.0500 ####[facility] [address] [place], [address] Prothrombin Time w/INRon INR Coag (PPP) [Relative time] 1.7 {INR} Normal [facility] Comment on above: Order Comment: 411-2 Performed By: #### L 300.3900 ####[facility] [address] [place], [address] PT Coag (PPP) [Time] 19.5 s High 11.7-14.9 [facility] Comment on above: Order Comment: 411-2 Performed By: #### L 300.3900 ####[facility] [address] [place], [address] CBC-Complete Blood Cnt No Di ffon 11-23-2023 Erythrocyte distribution width (RBC) [Ratio] 14.8 % High 11.6-14.6 [facility] Comment on above: Performed By: #### L 500.4050, L100.0500 ####[facility] [address] [place], [address] Hematocrit (Bld) [Volume fraction] 40.1 % Normal 40-54 [facility] Comment on above: Performed By: #### L 500.4050, L100.0500 ####[facility] [address] [place], [address] Hemoglobin (Bld) [Mass/Vol] 12.4 g/dL Low 13.0-16.5 [facility] Comment on above: Performed By: #### L 500.4050, L100.0500 ####[facility] [address] [place], [address] MCH (RBC) [Entitic mass] 27.0 pg Normal 27.0-32.0 [facility] Comment on above: Performed By: #### L 500.4050, L100.0500 ####[facility] [address] [place], [address] MCHC (RBC) [Mass/Vol] 30.9 g/dL Low 32-36 [facility] Comment on above: Performed By: #### L 500.4050, L100.0500 ####[facility] [address] [place], [address] MCV (RBC) [Entitic vol] 87.4 fL Normal 80-94 [facility] Comment on above: Performed By: #### L 500.4050, L100.0500 ####[facility] [address] [place], [address] Platelet mean volume (Bld) [Entitic vol] 10.4 fL Normal 6.2-12.0 [facility] Comment on above: Performed By: #### L 500.4050, L100.0500 ####[facility] [address] [place], [address] Platelets (Bld) [#/Vol] 278 10*3/uL Normal 150-450 [facility] Comment on above: Performed By: #### L 500.4050, L100.0500 ####[facility] [address] [place], [address] RBC (Bld) [#/Vol] 4.59 10*6/uL Low 4.6-6.2 [facility] Comment on above: Performed By: #### L 500.4050, L100.0500 ####[facility] [address] [place], [address] RDW SD 47.6 fl High 35.1-43.9 [facility] Comment on above: Performed By: #### L 500.4050, L100.0500 ####[facility] [address] [place], [address] WBC (Bld) [#/Vol] 11.9 10*3/uL High 4.4-11.0 [facility] Comment on above: Performed By: #### L 500.4050, L100.0500 ####[facility] [address] [place], [address] Comprehensive Metabolic Prof [facility] 11-23-2023 Albumin [Mass/Vol] 2.9 g/dL Low 3.2-5.0 [facility] Comment on above: Performed By: #### L 500.4050, L100.0500 ####[facility] [address] [place], [address] Albumin/Globulin [Mass ratio] 0.8 {ratio} Low 0.9-2.4 [facility] Comment on above: Performed By: #### L 500.4050, L100.0500 ####[facility] [address] [place], [address] ALK P 100 U/L Normal 45-117 [facility] Comment on above: Performed By: #### L 500.4050, L100.0500 ####[facility] [address] [place], [address] ALT [Catalytic activity/Vol] 13 U/L Low 16-61 [facility] Comment on above: Performed By: #### L 500.4050, L100.0500 ####[facility] [address] [place], [address] AST [Catalytic activity/Vol] 10 U/L Low 15-37 [facility] Comment on above: Performed By: #### L 500.4050, L100.0500 ####[facility] [address] [place], [address] Bilirubin [Mass/Vol] 0.30 mg/dL Normal 0.20-1.00 [facility] Comment on above: Result Comment: For patients on eltrombopag therapy, use of Dimension [place] TBIL is not recommended. Performed By: #### L 500.4050, L100.0500 ####[facility] [address] [place], [address] BUN/CRE 22.8 RATIO High 10-20 [facility] Comment on above: Performed By: #### L 500.4050, L100.0500 ####[facility] [address] [place], [address] CA,Total 8.5 mg/dL Normal 8.5-10.1 [facility] Comment on above: Performed By: #### L 500.4050, L100.0500 ####[facility] [address] [place], [address] Chloride [Moles/Vol] 106 mmol/L Normal 98-107 [facility] Comment on above: Performed By: #### L 500.4050, L100.0500 ####[facility] [address] [place], [address] CO2 [Moles/Vol] 29.0 mmol/L Normal 21.0-32.0 [facility] Comment on above: Performed By: #### L 500.4050, L100.0500 ####[facility] [address] [place], [address] Creatinine [Mass/Vol] 0.74 mg/dL Normal 0.70-1.30 [facility] Comment on above: Result Comment: The validity of the calculated GFR GFRAA in patients over70 years has not been determined. Clinical correlation isessential. Performed By: #### L 500.4050, L100.0500 ####[facility] [address] [place], [address] EST GFR - AA 133 mL/min Normal >60 [facility] Comment on above: Result Comment: Afri can [place] GFR Calc Performed By: #### L 500.4050, L100.0500 ####[facility] [address] [place], [address] GAP 4 Low 5-15 [facility] Comment on above: Performed By: #### L 500.4050, L100.0500 ####[facility] [address] [place], [address] GFR/1.73 sq M.predicted among non-blacks MDRD (S/P/Bld) [Vol rate/Area] 110 mL/min/{1.73_m2} Normal >60 [facility] Comment on above: Result Comment: Non- GFR Calc Performed By: #### L 500.4050, L100.0500 ####[facility] [address] [place], [address] Globulin (S) [Mass/Vol] 3.8 g/dL Normal 2.2-4.2 [facility] Comment on above: Performed By: #### L 500.4050, L100.0500 ####[facility] [address] [place], [address] Glucose [Mass/Vol] 87 mg/dL Normal 74-106 [facility] Comment on above: Performed By: #### L 500.4050, L100.0500 ####[facility] [address] [place], [address] Potassium [Moles/Vol] 4.2 mmol/L Normal 3.5-5.1 [facility] Comment on above: Performed By: #### L 500.4050, L100.0500 ####[facility] [address] [place], [address] Sodium [Moles/Vol] 139 mmol/L Normal 136-145 [facility] Comment on above: Performed By: #### L 500.4050, L100.0500 ####[facility] [address] [place], [address] T PROT 6.7 g/dL Normal 6.4-8.2 [facility] Comment on above: Performed By: #### L 500.4050, L100.0500 ####[facility] [address] [place], [address] Urea nitrogen [Mass/Vol] 17 mg/dL Normal 7-18 [facility] Comment on above: Performed By: #### L 500.4050, L100.0500 ####[facility] [address] [place], [address] Urine Cultureon 07-19-2024 URC Culture exhibits no growth. Normal [facility] Comment on above: Performed By: #### M 100.2199, L4.2010 ####[facility] [address] [place], [address] Urinalysis, Routine (Dipstic k)on 11-22-2023 BILIRUBIN URINE Negative Normal Negative [facility] Comment on above: Order Comment: CLEAN CATCH Performed By: #### M 100.2199, L4.2010 ####[facility] [address] [place], [address] Clarity (U) Clear Normal Clear [facility] Comment on above: Order Comment: CLEAN CATCH Performed By: #### M .2199, L4 ####[facility] [address] [place], [address] Color (U) Yellow Normal Yellow [facility] Comment on above: Order Comment: CLEAN CATCH Performed By: #### M .2199, L4 ####[facility] [address] [place], [address] GLUCOSE, UR Normal Normal Normal [facility] Comment on above: Order Comment: CLEAN CATCH Performed By: #### M 100.2199, L4 ####[facility] [address] [place], [address] KETONE UR Negative Normal Negative [facility] Comment on above: Order Comment: CLEAN CATCH Performed By: #### M 100.2199, L4 ####[facility] [address] [place], [address] LEUK ESTERASE Negative Normal Negative [facility] Comment on above: Order Comment: CLEAN CATCH Performed By: #### M 100.2199, L4 ####[facility] [address] [place], [address] Nitrite Ql (U) Negative Normal Negative [facility] Comment on above: Order Comment: CLEAN CATCH Performed By: #### M 100.2199, L400 ####[facility] [address] [place], [address] OCCULT BLOOD-UR Negative Normal Negative [facility] Comment on above: Order Comment: CLEAN CATCH Performed By: #### M 100.2199, L4 ####[facility] [address] [place], [address] pH UR 6.0 Normal 5.0 - 8.0 [facility] Comment on above: Order Comment: CLEAN CATCH Performed By: #### M .2199, L4 ####[facility] [address] [place], [address] PROT DIPSTX Negative Normal Negative [facility] Comment on above: Order Comment: CLEAN CATCH Performed By: #### M .2199, L4 ####[facility] [address] [place], [address] SP.GR. DIPSTX 1.015 Normal 1.002-1.030 [facility] Comment on above: Order Comment: CLEAN CATCH Performed By: #### M 100.2199, L4 ####[facility] [address] [place], [address] UROBILI Normal Normal Normal [facility] Comment on above: Order Comment: CLEAN CATCH Performed By: #### M .2199, L4 ####[facility] [address] [place], [address] Basic Metabolic Profile (BMP )on 11-21-2023 BUN/CRE 23.6 RATIO High 10-20 [facility] Comment on above: Order Comment: 411-2 Performed By: #### L 500.2500, L100.0500 ####[facility] [address] [place], [address] CA,Total 8.7 mg/dL Normal 8.5-10.1 [facility] Comment on above: Order Comment: 411-2 Performed By: #### L 500.2500, L100.0500 ####[facility] [address] [place], [address] Chloride [Moles/Vol] 106 mmol/L Normal 98-107 [facility] Comment on above: Order Comment: 411-2 Performed By: #### L 500.2500, L100.0500 ####[facility] [address] [place], [address] CO2 [Moles/Vol] 26.0 mmol/L Normal 21.0-32.0 [facility] Comment on above: Order Comment: 411-2 Performed By: #### L 500.2500, L100.0500 ####[facility] [address] [place], [address] Creatinine [Mass/Vol] 0.89 mg/dL Normal 0.70-1.30 [facility] Comment on above: Order Comment: 411-2 Result Comment: The validity of the calculated GFR GFRAA in patients over70 years has not been determined. Clinical correlation isessential. Performed By: #### L 500.2500, L100.0500 ####[facility] [address] [place], [address] EST GFR - AA 108 mL/min Normal >60 [facility] Comment on above: Order Comment: 411-2 Result Comment: Afri can Belizean GFR Calc Performed By: #### L 500.2500, L100.0500 ####[facility] [address] [place], [address] GAP 5 Normal 5-15 [facility] Comment on above: Order Comment: 411-2 Performed By: #### L 500.2500, L100.0500 ####[facility] [address] [place], [address] GFR/1.73 sq M.predicted among non-blacks MDRD (S/P/Bld) [Vol rate/Area] 90 mL/min/{1.73_m2} Normal >60 [facility] Comment on above: Order Comment: 411-2 Result Comment: Non- GFR Calc Performed By: #### L 500.2500, L100.0500 ####[facility] [address] [place], [address] Glucose [Mass/Vol] 98 mg/dL Normal 74-106 [facility] Comment on above: Order Comment: 411-2 Performed By: #### L 500.2500, L100.0500 ####[facility] [address] [place], [address] Potassium [Moles/Vol] 4.2 mmol/L Normal 3.5-5.1 [facility] Comment on above: Order Comment: 411-2 Performed By: #### L 500.2500, L100.0500 ####[facility] [address] [place], [address] Sodium [Moles/Vol] 137 mmol/L Normal 136-145 [facility] Comment on above: Order Comment: 411-2 Performed By: #### L 500.2500, L100.0500 ####[facility] [address] [place], [address] Urea nitrogen [Mass/Vol] 21 mg/dL High 7-18 [facility] Comment on above: Order Comment: 411-2 Performed By: #### L 500.2500, L100.0500 ####[facility] [address] [place], [address] CBC-Complete Blood Cnt No Di ffon 11-21-2023 Erythrocyte distribution width (RBC) [Ratio] 14.9 % High 11.6-14.6 [facility] Comment on above: Order Comment: 411-2 Performed By: #### L 500.2500, L100.0500 ####[facility] [address] [place], [address] Hematocrit (Bld) [Volume fraction] 38.0 % Low 40-54 [facility] Comment on above: Order Comment: 411-2 Performed By: #### L 500.2500, L100.0500 ####[facility] [address] [place], [address] Hemoglobin (Bld) [Mass/Vol] 12.0 g/dL Low 13.0-16.5 [facility] Comment on above: Order Comment: 411-2 Performed By: #### L 500.2500, L100.0500 ####[facility] [address] [place], [address] MCH (RBC) [Entitic mass] 27.5 pg Normal 27.0-32.0 [facility] Comment on above: Order Comment: 411-2 Performed By: #### L 500.2500, L100.0500 ####[facility] [address] [place], [address] MCHC (RBC) [Mass/Vol] 31.6 g/dL Low 32-36 [facility] Comment on above: Order Comment: 411-2 Performed By: #### L 500.2500, L100.0500 ####[facility] [address] [place], [address] MCV (RBC) [Entitic vol] 87.0 fL Normal 80-94 [facility] Comment on above: Order Comment: 411-2 Performed By: #### L 500.2500, L100.0500 ####[facility] [address] [place], [address] Platelet mean volume (Bld) [Entitic vol] 10.3 fL Normal 6.2-12.0 [facility] Comment on above: Order Comment: 411-2 Performed By: #### L 500.2500, L100.0500 ####[facility] [address] [place], [address] Platelets (Bld) [#/Vol] 282 10*3/uL Normal 150-450 [facility] Comment on above: Order Comment: 411-2 Performed By: #### L 500.2500, L100.0500 ####[facility] [address] [place], [address] RBC (Bld) [#/Vol] 4.37 10*6/uL Low 4.6-6.2 [facility] Comment on above: Order Comment: 411-2 Performed By: #### L 500.2500, L100.0500 ####[facility] [address] [place], [address] RDW SD 47.6 fl High 35.1-43.9 [facility] Comment on above: Order Comment: 411-2 Performed By: #### L 500.2500, L100.0500 ####[facility] [address] [place], [address] WBC (Bld) [#/Vol] 13.3 10*3/uL High 4.4-11.0 [facility] Comment on above: Order Comment: 411-2 Performed By: #### L 500.2500, L100.0500 ####[facility] [address] [place], [address] Prothrombin Time w/INRon INR Coag (PPP) [Relative time] 1.9 {INR} Normal [facility] Comment on above: Order Comment: 411-2 Performed By: #### L 300.3900 ####[facility] [address] [place], [address] PT Coag (PPP) [Time] 21.8 s High 11.7-14.9 [facility] Comment on above: Order Comment: 411-2 Performed By: #### L 300.3900 ####[facility] [address] [place], [address] Office Visiton 09-13-2023 Follow-up visit [id number] Tamie Sifuentes cheng R 1950 M Date Provider Department Center 09/13/2023 [id number]-YHSJCJREBECCA BUCK [facility] None Family History Problem Relation Age of Onset Heart disease Father Cancer Mother Family Status - Relation Status Age at Father Mother Level of Service:88539 [place] OFFICE/OUTPATIENT ESTABLISHED MOD MDM 30 MIN Reason for Visit and Comments: left flank pain [Other] - 8/10 pain when touched Normal [facility] Progress Noteon 09-13-2023 Progress Note Walt Moran [...] Hydrocephalus, adult (CMS/HCC) (HCC) Kidney stone Neuropathy 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 Physical Exam: Physical Exam LABS: No results found for: "PSAFREE", "PSAFREEPCT" No results for input(s): "PSAFREE", "PSAFREEPCT" in the last 72 hours. No results found for: TESTOSTERONE Lab Results Component Value Date WBC 14.5 (H) 03/02/2022 HGB 12.1 (L) 03/02/2022 MCV 81.1 03/02/2022 Lab Results Component Value Date GLUCOSE 109 (H) 03/02/2022 CALCIUM 9.1 03/02/2022 NA 140 03/02/2022 K 3.7 03/02/2022 CO2 27 03/02/2022 CL 106 03/02/2022 BUN 22 (H) 03/02/2022 CR (more content not included)... Normal [facility] CT ABDOMEN PELVIS WO IV CONT [facility] 09-07-2023 CT ABDOMEN PELVIS WO IV CONTRAST Patient Name: [facility]REW [facility]UENT[facility] : 1950 [id number] Exam Date/Time: 09/06/2023 18:14 Procedure: CT ABDOMEN [...] a kidney stone; pt has a hernia Normal [facility] 36on 08-29-2023 36 Lm on [facility] vm t o advise them to call the number for the equipment manager to get clarification, and to call back with further questions [facility] 36on 08-27-2023 36 Yes, they will need to call the number given to them. [facility] 36 Please advise [facility] 36on 08-21-2023 36 Name of caller: Zion holt Contact phone number: [phone] Relationship to Patient: patient Provider: MD Quinn Practice: [facility] Chief Complaint/Reason for Call: Shanthi called [...] to reach out to call Maury Cedeño Costing Analyst at [facility] [phone] to get clarifications. CAC did reach back out to [facility] and advised and provider Maury's #. Please advise Best time of day caller can be reached: Any Patient advised that office/PCP has 24-48 business hours to return their call: N/A [facility] Laboratory - CoagulationOrde red By: Carlos Cavazos on 08-21-2023 INR Coag (Bld) [Relative time] 2.7 {INR} [facility] PT Coag (PPP) [Time] 28.9 s 11.7-14.9 [facility] Office Visiton 08-13-2023 Follow-up visit [id number] Tamie Sifuentes 1950 M Date Provider Department Center 08/13/2023 [id number]-PTCQLOREBECCA BUCK [facility] None Family History Problem Relation Age of Onset Heart disease Father Cancer Mother Family Status - Relation Status Age at Father Mother Level of Service:38263 [place] OFFICE/OUTPATIENT NEW MODERATE MDM 45 MINUTES Reason for Visit and Comments: New Patient [542] - Bilateral flank pain, hx of kidney stones Nephrolithiasis [079567] [facility] Progress Noteon 08-13-2023 Progress Note Walt Moran 08/13/2023 at 10:45 AM UROLOGY INITIAL OFFICE VISIT PATIENT NAME: Andrew Dengyer DATE OF : 1950 TODAY'S DATE: 08/13/2023 [...] Hydrocephalus, adult (CMS/HCC) (HCC) Kidney stone Neuropathy 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 DATA: LABS: No results found for: "PSAFREE", "PSAFREEPCT" No results for input(s): "PSAFREE", "PSAFREEPCT" in the last 72 hours. No results [...] CT ab (more content not included)... Normal [facility] No Panel InformationOrdered By: Carlos Cavazos on 08-03-2023 Levetiracetam (Keppra) Level 32.4 ug/mL 10.0-40.0 [facility] Comment on above: Performed at: [address] [id number] Director: Alpesh Vázquez MD, Phone: [phone] Basophil percentageOrdered B y: Carlos Cavazos on 07-20-2023 Chloride [Moles/Vol] 106 mmol/L 98-107 [facility] Glucose [Mass/Vol] 98 mg/dL 74-106 [facility] Hemoglobin (Bld) [Mass/Vol] 12.5 g/dL 13.0-16.5 [facility] Potassium [Moles/Vol] 4.3 mmol/L 3.5-5.1 [facility] Sodium [Moles/Vol] 135 mmol/L 136-145 [facility] WBC (Bld) [#/Vol] 13.0 10*3/uL 4.4-11.0 [facility] Determination of erythrocyte mean corpuscular volume (MCV)Ordered By: Carlos Cavazso on 07-20-2023 MCV (RBC) [Entitic vol] 86.2 fL 80-94 [facility] Erythrocyte distribution wid th ratioOrdered By: Carlos Cavazos on 07-20-2023 Erythrocyte distribution width (RBC) [Ratio] 15.3 % 11.6-14.6 [facility] Erythrocyte distribution wid th standard deviationOrdered By: Carlos Cavazos on 07-20-2023 Erythrocyte distribution width (RBC) [Entitic vol] 48.1 fL 35.1-43.9 [facility] Hematocrit Auto (Bld) [Volum e fraction]Ordered By: Carlos Cavazos on 07-20-2023 Hematocrit (Bld) [Volume fraction] 39.9 % 40-54 [facility] Laboratory - Chemistry and C hemistry - challengeOrdered By: Carlos Cavazos on 07-20-2023 CO2 [Moles/Vol] 24.0 mmol/L 21.0-32.0 [facility] Urea nitrogen/Creatinine [Mass ratio] 24.6 mg/mg 10-20 [facility] Laboratory - Hematology and Cell countsOrdered By: Carlos Cavazos on 07-20-2023 MCH (RBC) [Entitic mass] 27.0 pg 27.0-32.0 [facility] MCHC (RBC) [Mass/Vol] 31.3 g/dL 32-36 [facility] Platelet mean volume (Bld) [Entitic vol] 10.7 fL 6.2-12.0 [facility] Platelets (Bld) [#/Vol] 260 10*3/uL 150-450 [facility] No Panel InformationOrdered By: Carlos Cavazos on 07-20-2023 Estimated GFR (MDRD) Amer 114 mL/min >60 [facility] Comment on above: GFR Calc Estimated GFR (MDRD) Non-Af Amer 94 mL/min >60 [facility] Comment on above: Non- GFR Calc RBC Auto (Bld) [#/Vol]Ordere d By: Carlos Cavazos on 07-20-2023 RBC (Bld) [#/Vol] 4.63 10*6/uL 4.6-6.2 [facility] Serum or plasma calcium oral urement (mass/volume)Ordered By: Carlos Cavazos on 07-20-2023 Calcium [Mass/Vol] 8.6 mg/dL 8.5-10.1 [facility] Serum or plasma creatinine m easurement (mass/volume)Ordered By: Carlos Cavazos on 07-20-2023 Creatinine [Mass/Vol] 0.85 mg/dL 0.70-1.30 [facility] Comment on above: The validity of the calculated GFR & GFRAA in patients over 70 years has not been determined. Clinical correlation is essential. Serum or plasma urea nitroge n measurement (mass/volume)Ordered By: Carlos Cavazos on 07-20-2023 Urea nitrogen [Mass/Vol] 21 mg/dL 7-18 [facility] Thin prep Papanicolaou smear with manual screeningOrdered By: Carlos Cavazos on 07-20-2023 Thin prep Papanicolaou smear with manual screening 5 5-15 [facility] Basophil percentageOrdered B y: Carlos Cavazos on 07-18-2023 Chloride [Moles/Vol] 102 mmol/L 98-107 [facility] Glucose [Mass/Vol] 96 mg/dL 74-106 [facility] Hemoglobin (Bld) [Mass/Vol] 12.3 g/dL 13.0-16.5 [facility] Potassium [Moles/Vol] 4.2 mmol/L 3.5-5.1 [facility] Sodium [Moles/Vol] 136 mmol/L 136-145 [facility] WBC (Bld) [#/Vol] 14.7 10*3/uL 4.4-11.0 [facility] Determination of erythrocyte mean corpuscular volume (MCV)Ordered By: Carlos Cavazos on 07-18-2023 MCV (RBC) [Entitic vol] 85.4 fL 80-94 [facility] Erythrocyte distribution wid th ratioOrdered By: Carlos Cavazos on 07-18-2023 Erythrocyte distribution width (RBC) [Ratio] 15.1 % 11.6-14.6 [facility] Erythrocyte distribution wid th standard deviationOrdered By: Carlos Cavazos on 07-18-2023 Erythrocyte distribution width (RBC) [Entitic vol] 47.3 fL 35.1-43.9 [facility] Hematocrit Auto (Bld) [Volum e fraction]Ordered By: Carlos Cavazos on 07-18-2023 Hematocrit (Bld) [Volume fraction] 39.3 % 40-54 [facility] Laboratory - Chemistry and C hemistry - challengeOrdered By: Carlos Cavazos on 07-18-2023 CO2 [Moles/Vol] 27.0 mmol/L 21.0-32.0 [facility] Urea nitrogen/Creatinine [Mass ratio] 24.4 mg/mg 10-20 [facility] Laboratory - Hematology and Cell countsOrdered By: Carlos Cavazos on 07-18-2023 MCH (RBC) [Entitic mass] 26.7 pg 27.0-32.0 [facility] MCHC (RBC) [Mass/Vol] 31.3 g/dL 32-36 [facility] Platelet mean volume (Bld) [Entitic vol] 10.3 fL 6.2-12.0 [facility] Platelets (Bld) [#/Vol] 288 10*3/uL 150-450 [facility] No Panel InformationOrdered By: Carlos Cavazos on 07-18-2023 Estimated GFR (MDRD) Amer 113 mL/min >60 [facility] Comment on above: GFR Calc Estimated GFR (MDRD) Non-Af Amer 93 mL/min >60 [facility] Comment on above: Non- GFR Calc RBC Auto (Bld) [#/Vol]Ordere d By: Carlos Cavazos on 07-18-2023 RBC (Bld) [#/Vol] 4.60 10*6/uL 4.6-6.2 [facility] Serum or plasma calcium oral urement (mass/volume)Ordered By: Carlos Cavazos on 07-18-2023 Calcium [Mass/Vol] 8.9 mg/dL 8.5-10.1 [facility] Serum or plasma creatinine m easurement (mass/volume)Ordered By: Carlos Cavazos on 07-18-2023 Creatinine [Mass/Vol] 0.86 mg/dL 0.70-1.30 [facility] Comment on above: The validity of the calculated GFR & GFRAA in patients over 70 years has not been determined. Clinical correlation is essential. Serum or plasma urea nitroge n measurement (mass/volume)Ordered By: Carlos Cavazos on 07-18-2023 Urea nitrogen [Mass/Vol] 21 mg/dL 7-18 [facility] Thin prep Papanicolaou smear with manual screeningOrdered By: Carlos Cavazos on 07-18-2023 Thin prep Papanicolaou smear with manual screening 7 5-15 [facility] Basophil percentageOrdered B y: Carlos Cavazos on 07-17-2023 Basophil percentage 0-5 SEEN /hpf 0-5 [facility] Bilirubin Test strip Ql (U)O rdered By: Carlos Cavazos on 07-17-2023 Bilirubin Ql (U) Negative Negative [facility] Calcium oxalate crystals det ection in urine sediment by light microscopyOrdered By: Carlos Cavazos on 07-17-2023 Calcium oxalate crystals LM Ql (Urine sed) 1+ /hpf [facility] Culture, urineOrdered By: Sharif Crouch on 07-17-2023 Bacteria identified Cx Nom (U) Positive [facility] Ketones Test strip Ql (U)Ord ered By: Carlos Cavazos on 07-17-2023 Ketones Ql (U) Negative Negative [facility] Mucus LM Ql (Urine sed)Order ed By: Carlos Cavazos on 07-17-2023 Mucus Ql (Urine sed) 0 SEEN /hpf [facility] Nitrite Test strip Ql (U)Ord ered By: Carlos Cavazos on 07-17-2023 Nitrite Ql (U) Negative Negative [facility] No Panel InformationOrdered By: Carlos Cavazos on 07-17-2023 Urine RBC 0 SEEN /hpf 0-5 [facility] Protein Test strip Ql (U)Ord ered By: Calros Cavazos on 07-17-2023 Protein Ql (U) Negative Negative [facility] Squamous epithelial cells de tection in urine sediment by light microscopyOrdered By: Carlos Cavazos on 07-17-2023 Epithelial cells.squamous LM Ql (Urine sed) 0-5 SEEN /hpf 0-5 [facility] Urine blood detectionOrdered By: Carlos Cavazos on 07-17-2023 RBC Ql (U) Negative Negative [facility] Urine clarityOrdered By: Ted Cavazos on 07-17-2023 Clarity (U) Clear Clear [facility] Urine color determinationOrd ered By: Carlos Cavazos on 07-17-2023 Color (U) Yellow Yellow [facility] Urine glucose detectionOrder ed By: Carlos Cavazos on 07-17-2023 Glucose Ql (U) Normal mg/dl Normal [facility] Urine leukocyte esterase det ection by dipstickOrdered By: Carlos Cavazos on 07-17-2023 Leukocyte esterase Test strip Ql (U) 25 /ul Negative [facility] Urine pHOrdered By: Carlos flores on 07-17-2023 pH (U) 6.0 [pH] 5.0 - 8.0 [facility] Urine sediment bacteria coun t by microscopy (number/high power field)Ordered By: Carlos Cavazos on 07-17-2023 Bacteria LM.HPF (Urine sed) [#/Area] 0 /[HPF] None Seen [facility] Urine specific gravity measu rementOrdered By: Carlos Cavazos on 07-17-2023 Specific gravity (U) [Rel density] 1.020 1.002-1.030 [facility] Urine urobilinogen measureme ntOrdered By: Cralos Cavazos on 07-17-2023 Urobilinogen Ql (U) Normal mg/dl Normal [facility] Absolute lymphocyte countOrd ered By: Carlos Cavazos on 07-16-2023 Lymphocytes Auto (Unsp spec) [#/Vol] 6.02 10*3/uL 0.83-4.51 [facility] Automated lymphocyte count a s percentage of total leukocytesOrdered By: Carlos Cavazos on 07-16-2023 Lymphocytes/100 WBC Auto (Unsp spec) 49.1 % 19-41 [facility] Basophil percentageOrdered B y: Carlos Cavazos on 07-16-2023 Basophils/100 WBC (Bld) 0.6 % 0-1 [facility] Chloride [Moles/Vol] 105 mmol/L 98-107 [facility] Eosinophils/100 WBC (Bld) 2.0 % 0-5 [facility] Glucose [Mass/Vol] 93 mg/dL 74-106 [facility] Hemoglobin (Bld) [Mass/Vol] 12.1 g/dL 13.0-16.5 [facility] Monocytes/100 WBC (Bld) 5.3 % 0-10 [facility] Neutrophils (Bld) [#/Vol] 5.2 10*3/uL 2.0-7.7 [facility] Neutrophils/100 WBC (Bld) 42.8 % 47-70 [facility] Potassium [Moles/Vol] 4.3 mmol/L 3.5-5.1 [facility] Sodium [Moles/Vol] 138 mmol/L 136-145 [facility] WBC (Bld) [#/Vol] 12.3 10*3/uL 4.4-11.0 [facility] Blood manual differential co mment interpretation (narrative result)Ordered By: Carlos Cvaazos on 07-16-2023 Manual differential comment Shemar (Bld) [Interp] SCANNED [facility] Determination of erythrocyte mean corpuscular volume (MCV)Ordered By: Carlos Cavazos on 07-16-2023 MCV (RBC) [Entitic vol] 86.8 fL 80-94 [facility] Erythrocyte distribution wid th ratioOrdered By: Carlos Cavazos on 07-16-2023 Erythrocyte distribution width (RBC) [Ratio] 15.3 % 11.6-14.6 [facility] Erythrocyte distribution wid th standard deviationOrdered By: Carlos Cavazos on 07-16-2023 Erythrocyte distribution width (RBC) [Entitic vol] 48.9 fL 35.1-43.9 [facility] Hematocrit Auto (Bld) [Volum e fraction]Ordered By: Carlos Cavazos on 07-16-2023 Hematocrit (Bld) [Volume fraction] 38.7 % 40-54 [facility] Immature granulocytes/100 WB C Auto (Bld)Ordered By: Carlos Cavazos on 07-16-2023 Immature granulocytes/100 WBC (Bld) 0.200 % 0.0-0.9 [facility] Comment on above: IG% - Immature Granu locytes (promyelocytes, myelocytes and metamyelocytes) > 1% indicates that a LEFT SHIFT is Present. Laboratory - Chemistry and C hemistry - challengeOrdered By: Carlos Cavazos on 07-16-2023 CO2 [Moles/Vol] 25.0 mmol/L 21.0-32.0 [facility] Urea nitrogen/Creatinine [Mass ratio] 21.0 mg/mg 10-20 [facility] Laboratory - CoagulationOrde red By: Carlos Cavazos on 07-16-2023 INR Coag (Bld) [Relative time] 2.4 {INR} [facility] PT Coag (PPP) [Time] 25.7 s 11.7-14.9 [facility] Laboratory - Hematology and Cell countsOrdered By: Carlos Cavazos on 07-16-2023 MCH (RBC) [Entitic mass] 27.1 pg 27.0-32.0 [facility] MCHC (RBC) [Mass/Vol] 31.3 g/dL 32-36 [facility] Nucleated RBC/100 WBC (Bld) [Ratio] 0 % 0-5 [facility] Platelet mean volume (Bld) [Entitic vol] 10.5 fL 6.2-12.0 [facility] Platelets (Bld) [#/Vol] 289 10*3/uL 150-450 [facility] No Panel InformationOrdered By: Carlos Cavazos on 07-16-2023 Estimated GFR (MDRD) Amer 106 mL/min >60 [facility] Comment on above: GFR Calc Estimated GFR (MDRD) Non-Af Amer 88 mL/min >60 [facility] Comment on above: Non- GFR Calc Reactive Lymphocytes 1+ [facility] RBC Auto (Bld) [#/Vol]Ordere d By: Carlos Cavazos on 07-16-2023 RBC (Bld) [#/Vol] 4.46 10*6/uL 4.6-6.2 [facility] Serum or plasma calcium oral urement (mass/volume)Ordered By: Carlos Cavazos on 07-16-2023 Calcium [Mass/Vol] 9.0 mg/dL 8.5-10.1 [facility] Serum or plasma creatinine m easurement (mass/volume)Ordered By: Carlos Cavazos on 07-16-2023 Creatinine [Mass/Vol] 0.90 mg/dL 0.70-1.30 [facility] Comment on above: The validity of the calculated GFR & GFRAA in patients over 70 years has not been determined. Clinical correlation is essential. Serum or plasma urea nitroge n measurement (mass/volume)Ordered By: Carlos Cavazos on 07-16-2023 Urea nitrogen [Mass/Vol] 19 mg/dL 7-18 [facility] Thin prep Papanicolaou smear with manual screeningOrdered By: Carlos Cavazos on 07-16-2023 Thin prep Papanicolaou smear with manual screening 8 5-15 [facility] Absolute lymphocyte countOrd ered By: Carlos Cavazos on 07-13-2023 Lymphocytes Auto (Unsp spec) [#/Vol] 5.44 10*3/uL 0.83-4.51 [facility] Automated lymphocyte count a s percentage of total leukocytesOrdered By: Carlos Cavazos on 07-13-2023 Lymphocytes/100 WBC Auto (Unsp spec) 47.3 % 19-41 [facility] Basophil percentageOrdered B y: Carlos Cavazos on 07-13-2023 Basophils/100 WBC (Bld) 0.4 % 0-1 [facility] Chloride [Moles/Vol] 107 mmol/L 98-107 [facility] Eosinophils/100 WBC (Bld) 1.7 % 0-5 [facility] Glucose [Mass/Vol] 96 mg/dL 74-106 [facility] Hemoglobin (Bld) [Mass/Vol] 13.5 g/dL 13.0-16.5 [facility] Monocytes/100 WBC (Bld) 4.3 % 0-10 [facility] Neutrophils (Bld) [#/Vol] 5.3 10*3/uL 2.0-7.7 [facility] Neutrophils/100 WBC (Bld) 46.0 % 47-70 [facility] Potassium [Moles/Vol] 4.0 mmol/L 3.5-5.1 [facility] Sodium [Moles/Vol] 139 mmol/L 136-145 [facility] WBC (Bld) [#/Vol] 11.5 10*3/uL 4.4-11.0 [facility] Determination of erythrocyte mean corpuscular volume (MCV)Ordered By: Carlos Cavazos on 07-13-2023 MCV (RBC) [Entitic vol] 86.1 fL 80-94 [facility] Erythrocyte distribution wid th ratioOrdered By: Carlos Cavazos on 07-13-2023 Erythrocyte distribution width (RBC) [Ratio] 15.2 % 11.6-14.6 [facility] Erythrocyte distribution wid th standard deviationOrdered By: Carlos Cavazos on 07-13-2023 Erythrocyte distribution width (RBC) [Entitic vol] 48.0 fL 35.1-43.9 [facility] Hematocrit Auto (Bld) [Volum e fraction]Ordered By: Carlos Cavazos on 07-13-2023 Hematocrit (Bld) [Volume fraction] 42.2 % 40-54 [facility] Immature granulocytes/100 WB C Auto (Bld)Ordered By: Carlos Cavazos on 07-13-2023 Immature granulocytes/100 WBC (Bld) 0.300 % 0.0-0.9 [facility] Comment on above: IG% - Immature Granu locytes (promyelocytes, myelocytes and metamyelocytes) > 1% indicates that a LEFT SHIFT is Present. Laboratory - Chemistry and C hemistry - challengeOrdered By: Carlos Cavazos on 07-13-2023 CO2 [Moles/Vol] 26.0 mmol/L 21.0-32.0 [facility] Urea nitrogen/Creatinine [Mass ratio] 21.8 mg/mg 10-20 [facility] Laboratory - Hematology and Cell countsOrdered By: Carlos Cavazos on 07-13-2023 MCH (RBC) [Entitic mass] 27.6 pg 27.0-32.0 [facility] MCHC (RBC) [Mass/Vol] 32.0 g/dL 3236 [facility] Nucleated RBC/100 WBC (Bld) [Ratio] 0 % 0-5 [facility] Platelet mean volume (Bld) [Entitic vol] 10.1 fL 6.2-12.0 [facility] Platelets (Bld) [#/Vol] 279 10*3/uL 150-450 [facility] No Panel InformationOrdered By: Carlos Cavazos on 07-13-2023 Estimated GFR (MDRD) Amer 118 mL/min >60 [facility] Comment on above: GFR Calc Estimated GFR (MDRD) Non-Af Amer 98 mL/min >60 [facility] Comment on above: Non- GFR Calc Levetiracetam (Keppra) Level 25.5 ug/mL 10.0-40.0 [facility] Comment on above: Performed at: - [facility] [address] [id number] Director: Alpesh Vázquez MD, Phone: [phone] RBC Auto (Bld) [#/Vol]Ordere d By: Carlos Cavazos on 07-13-2023 RBC (Bld) [#/Vol] 4.90 10*6/uL 4.6-6.2 [facility] Serum or plasma calcium oral urement (mass/volume)Ordered By: Carlos Cavazos on 07-13-2023 Calcium [Mass/Vol] 9.1 mg/dL 8.5-10.1 [facility] Serum or plasma creatinine m easurement (mass/volume)Ordered By: Carlos Cavazos on 07-13-2023 Creatinine [Mass/Vol] 0.82 mg/dL 0.70-1.30 [facility] Comment on above: The validity of the calculated GFR & GFRAA in patients over 70 years has not been determined. Clinical correlation is essential. Serum or plasma urea nitroge n measurement (mass/volume)Ordered By: Carlos Cavazos on 07-13-2023 Urea nitrogen [Mass/Vol] 18 mg/dL 7-18 [facility] Thin prep Papanicolaou smear with manual screeningOrdered By: Carlos Cavazos on 07-13-2023 Thin prep Papanicolaou smear with manual screening 6 5-15 [facility] No Panel InformationOrdered By: Carlos Cavazos on 07-12-2023 Valproic Acid (Depakene) Level < 3 ug/mL 50-100 [facility] Laboratory - CoagulationOrde red By: Carlos Cavazos on 07-05-2023 INR Coag (Bld) [Relative time] 2.4 {INR} [facility] PT Coag (PPP) [Time] 26.3 s 11.7-14.9 [facility] Laboratory - CoagulationOrde red By: Carlos Cavazos on 07-02-2023 INR Coag (Bld) [Relative time] 1.5 {INR} [facility] PT Coag (PPP) [Time] 18.5 s 11.7-14.9 [facility] Laboratory - CoagulationOrde red By: Carlos Cavazos on 06-28-2023 INR Coag (Bld) [Relative time] 1.7 {INR} [facility] PT Coag (PPP) [Time] 20.5 s 11.7-14.9 [facility] 36on 06-25-2023 36 [facility] christiano called in stating appt scheduled 07/10/23 [place] has to be made further out, pt being transported by cot. Changed appt to 08/13/23 per [facility] only avail time for transport, first avail with DR Buck at 10:00 AM. [facility] Laboratory - CoagulationOrde red By: Carlos Cavazos on 06-25-2023 INR Coag (Bld) [Relative time] 3.8 {INR} [facility] PT Coag (PPP) [Time] 38.2 s 11.7-14.9 [facility] Laboratory - CoagulationOrde red By: Carlos Cavazos on 06-21-2023 INR Coag (Bld) [Relative time] 3.2 {INR} [facility] PT Coag (PPP) [Time] 32.9 s 11.7-14.9 [facility] No Panel InformationOrdered By: Carlos Cavazos on 06-13-2023 Valproic Acid (Depakene) Level < 3 ug/mL 50-100 [facility] Laboratory - CoagulationOrde red By: Carlos Cavazos on 06-06-2023 PT Coag (PPP) [Time] 30.5 s 11.7-14.9 [facility] Platelet poor plasma interna tional normalized ratio (INR)Ordered By: Carlos Cavazos on 06-06-2023 INR Coag (PPP) [Relative time] 2.9 {INR} [facility] International normalized rat io (INR) calculationOrdered By: Carlos Cavazos on 05-23-2023 INR Coag (PPP) [Relative time] 2.6 {INR} [facility] Laboratory - CoagulationOrde red By: Carlos Cavazos on 05-23-2023 PT Coag (PPP) [Time] 27.7 s 11.7-14.9 [facility] Laboratory - CoagulationOrde red By: Carlos Cavazos on 05-09-2023 PT Coag (PPP) [Time] 24.1 s 11.7-14.9 [facility] Whole blood international no rmalized ratio (INR)Ordered By: Carlos Cavazos on 05-09-2023 INR Coag (Bld) [Relative time] 2.1 {INR} [facility] Laboratory - CoagulationOrde red By: Carlos Cavazos on 04-23-2023 PT Coag (PPP) [Time] 26.4 s 11.7-14.9 [facility] Whole blood international no rmalized ratio (INR)Ordered By: Carlos Cavazos on 04-23-2023 INR Coag (Bld) [Relative time] 2.4 {INR} [facility] INR in Blood by Coagulation assayOrdered By: Carlos Cavazos on 04-09-2023 INR Coag (Bld) [Relative time] 2.1 {INR} [facility] Laboratory - CoagulationOrde red By: Carlos Cavazos on 04-09-2023 PT Coag (PPP) [Time] 23.9 s 11.7-14.9 [facility] INR in Blood by Coagulation assayOrdered By: Carlos Cavazos on 04-02-2023 INR Coag (Bld) [Relative time] 2.2 {INR} [facility] Laboratory - CoagulationOrde red By: Carlos Cavazos on 04-02-2023 PT Coag (PPP) [Time] 24.5 s 11.7-14.9 [facility] INR in Blood by Coagulation assayOrdered By: Carlos Cavazos on 03-26-2023 INR Coag (Bld) [Relative time] 1.7 {INR} [facility] Laboratory - CoagulationOrde red By: Carlos Cavazos on 03-26-2023 PT Coag (PPP) [Time] 19.9 s 11.7-14.9 [facility] INR in Blood by Coagulation assayOrdered By: Carlos Cavazos on 03-22-2023 INR Coag (Bld) [Relative time] 1.3 {INR} [facility] Laboratory - CoagulationOrde red By: Carlos Cavazos on 03-22-2023 PT Coag (PPP) [Time] 16.4 s 11.7-14.9 [facility] INR in Blood by Coagulation assayOrdered By: Carlos Cavazos on 03-08-2023 INR Coag (Bld) [Relative time] 2.0 {INR} [facility] Laboratory - CoagulationOrde red By: Carlos Cavazos on 03-08-2023 PT Coag (PPP) [Time] 22.5 s 11.7-14.9 [facility] Laboratory - CoagulationOrde red By: Carlos Cavazos on 02-22-2023 INR Coag (Bld) [Relative time] 2.2 {INR} [facility] Comment on above: Critical Value > 4.0 Whole blood prothrombin time Ordered By: Carlos Cavazos on 02-22-2023 PT Coag (Bld) [Time] 24.0 s 11.7-14.9 [facility] INR in Blood by Coagulation assayOrdered By: Cliff Bruner on 02-15-2023 INR Coag (Bld) [Relative time] 2.0 {INR} [facility] Laboratory - CoagulationOrde red By: Cliff Bruner on 02-15-2023 PT Coag (PPP) [Time] 22.8 s 11.7-14.9 [facility] INR in Blood by Coagulation assayOrdered By: Carlos Cavazos on 02-08-2023 INR Coag (Bld) [Relative time] 2.1 {INR} [facility] Laboratory - CoagulationOrde red By: Carlos Cavazos on 02-08-2023 PT Coag (PPP) [Time] 23.5 s 11.7-14.9 [facility] INR in Blood by Coagulation assayOrdered By: Carlos Cavazos on 01-31-2023 INR Coag (Bld) [Relative time] 2.0 {INR} [facility] Laboratory - CoagulationOrde red By: Carlos Cavazos on 01-31-2023 PT Coag (PPP) [Time] 22.4 s 11.7-14.9 [facility] Laboratory - CoagulationOrde red By: Carlos Cavazos on 01-29-2023 INR Coag (Bld) [Relative time] 1.8 {INR} [facility] Comment on above: Critical Value > 4.0 Whole blood prothrombin time Ordered By: Carlos Cavazos on 01-29-2023 PT Coag (Bld) [Time] 19.9 s 11.7-14.9 [facility] INR in Blood by Coagulation assayOrdered By: Carlos Cavazos on 01-26-2023 INR Coag (Bld) [Relative time] 1.5 {INR} [facility] Laboratory - CoagulationOrde red By: Carlos Cavazos on 01-26-2023 PT Coag (PPP) [Time] 18.3 s 11.7-14.9 [facility] INR in Blood by Coagulation assayOrdered By: Carlos Cavazos on 01-24-2023 INR Coag (Bld) [Relative time] 1.3 {INR} [facility] - CoagulationOrde red By: Carlos Cavazos on 01-24-2023 PT Coag (PPP) [Time] 16.2 s 11.7-14.9 [facility] Basophil percentageOrdered B y: Carlos Cavazos on 01-22-2023 Basophil percentage 0 SEEN /hpf 0-5 [facility] Bilirubin Test strip Ql (U)O rdered By: Carlos Cavazos on 01-22-2023 Bilirubin Ql (U) Negative Negative [facility] Calcium oxalate crystals det ection in urine sediment by light microscopyOrdered By: Carlos Cavazos on 01-22-2023 Calcium oxalate crystals LM Ql (Urine sed) 1+ /hpf [facility] Culture, urineOrdered By: Sharif Crouch on 01-22-2023 Bacteria identified Cx Nom (U) Positive [facility] Ketones Test strip Ql (U)Ord ered By: Carlos Cavazos on 01-22-2023 Ketones Ql (U) Negative Negative [facility] Mucus LM Ql (Urine sed)Order ed By: Carlos Cavazos on 01-22-2023 Mucus Ql (Urine sed) 1+ /hpf [facility] Nitrite Test strip Ql (U)Ord ered By: Carlos Cavazos on 01-22-2023 Nitrite Ql (U) Negative Negative [facility] Protein Test strip Ql (U)Ord ered By: Carlos Cavazos on 01-22-2023 Protein Ql (U) Negative Negative [facility] Squamous epithelial cells de tection in urine sediment by light microscopyOrdered By: Carlos Cavazos on 01-22-2023 Epithelial cells.squamous LM Ql (Urine sed) 0 SEEN /hpf 0-5 [facility] Urine blood detectionOrdered By: Carlos Cavazos on 01-22-2023 RBC Ql (U) Negative Negative [facility] RBC Ql (U) 0 SEEN /hpf 0-5 [facility] Urine clarityOrdered By: Ted Cavazos on 01-22-2023 Clarity (U) Sl. Cloudy Clear [facility] Urine color determinationOrd ered By: Carlos Cavazos on 01-22-2023 Color (U) Yellow Yellow [facility] Urine glucose detectionOrder ed By: Carlos Cavazos on 01-22-2023 Glucose Ql (U) Normal mg/dl Normal [facility] Urine leukocyte esterase det ection by dipstickOrdered By: Carlos Cavazos on 01-22-2023 Leukocyte esterase Test strip Ql (U) Negative Negative [facility] Urine pHOrdered By: Carlos flores on 01-22-2023 pH (U) 5.0 [pH] 5.0 - 8.0 [facility] Urine sediment bacteria coun t by microscopy (number/high power field)Ordered By: Carlos Cavazos on 01-22-2023 Bacteria LM.HPF (Urine sed) [#/Area] 2 /[HPF] None Seen [facility] Urine specific gravity measu rementOrdered By: Carlos Cavazos on 01-22-2023 Specific gravity (U) [Rel density] 1.025 1.002-1.030 [facility] Urobilinogen Auto test strip Ql (U)Ordered By: Carlos Cavazos on 01-22-2023 Urobilinogen Ql (U) Normal mg/dl Normal [facility] INR in Blood by Coagulation assayOrdered By: Carlos Cavazos on 01-10-2023 INR Coag (Bld) [Relative time] 2.0 {INR} [facility] Laboratory - CoagulationOrde red By: Carlos Cavazos on 01-10-2023 PT Coag (PPP) [Time] 22.6 s 11.7-14.9 [facility] INR in Blood by Coagulation assayOrdered By: Carlos Cavazos on 12-27-2022 INR Coag (Bld) [Relative time] 2.1 {INR} [facility] Laboratory - CoagulationOrde red By: Carlos Cavazos on 12-27-2022 PT Coag (PPP) [Time] 24.1 s 11.7-14.9 [facility] INR in Blood by Coagulation assayOrdered By: Carlos Cavazos on 12-21-2022 INR Coag (Bld) [Relative time] 2.4 {INR} [facility] Laboratory - CoagulationOrde red By: Carlos Cavazos on 12-21-2022 PT Coag (PPP) [Time] 26.7 s 11.7-14.9 [facility] Laboratory - CoagulationOrde red By: Carlos Cavazos on 12-14-2022 INR Coag (Bld) [Relative time] 2.3 {INR} [facility] Comment on above: Critical Value > 4.0 Whole blood prothrombin time Ordered By: Carlos Cavazos on 12-14-2022 PT Coag (Bld) [Time] 25.2 s 11.7-14.9 [facility] Laboratory - CoagulationOrde red By: Carlos Cavazos on 12-07-2022 INR Coag (Bld) [Relative time] 2.5 {INR} [facility] Comment on above: Critical Value > 4.0 Whole blood prothrombin time Ordered By: Carlos Cavazos on 12-07-2022 PT Coag (Bld) [Time] 26.9 s 11.7-14.9 [facility] Amorphous sediment detection in urine sediment by light microscopyOrdered By: Carlos Cavazos on 11-24-2022 Amorphous sediment LM Ql (Urine sed) 1+ [facility] Basophil percentageOrdered B y: Carlos Cavazos on 11-24-2022 Basophil percentage 0 SEEN /hpf 0-5 [facility] Bilirubin [Mass/Vol] 0.30 mg/dL 0.20-1.00 [facility] Comment on above: For patients on eltr ombopag therapy, use of Dimension [place] TBIL is not recommended. Chloride [Moles/Vol] 107 mmol/L 98-107 [facility] Glucose [Mass/Vol] 95 mg/dL 74-106 [facility] Potassium [Moles/Vol] 4.2 mmol/L 3.5-5.1 [facility] Protein [Mass/Vol] 6.9 g/dL 6.4-8.2 [facility] Sodium [Moles/Vol] 138 mmol/L 136-145 [facility] WBC (Bld) [#/Vol] 10.4 10*3/uL 4.4-11.0 [facility] Bilirubin Test strip Ql (U)O rdered By: Carlos Cavazos on 11-24-2022 Bilirubin Ql (U) Negative Negative [facility] Blood erythrocytes count (nu mber/volume)Ordered By: Carlos Cavazos on 11-24-2022 RBC (Bld) [#/Vol] 4.44 10*6/uL 4.6-6.2 [facility] Blood hemoglobin measurement (mass/volume)Ordered By: Carlos Cavazos on 11-24-2022 Hemoglobin (Bld) [Mass/Vol] 11.8 g/dL 13.0-16.5 [facility] Blood platelet mean volumeOr dered By: Carlos Cavazos on 11-24-2022 Platelet mean volume (Bld) [Entitic vol] 9.7 fL 6.2-12.0 [facility] Calcium oxalate crystals det ection in urine sediment by light microscopyOrdered By: Carols Cavazos on 11-24-2022 Calcium oxalate crystals LM Ql (Urine sed) RARE /hpf [facility] Culture, urineOrdered By: Sharif Crouch on 11-24-2022 Bacteria identified Cx Nom (U) Positive [facility] Determination of erythrocyte mean corpuscular volume (MCV)Ordered By: Carlos Cavazos on 11-24-2022 MCV (RBC) [Entitic vol] 84.7 fL 80-94 [facility] Hematocrit Auto (Bld) [Volum e fraction]Ordered By: Carlos Cavazos on 11-24-2022 Hematocrit (Bld) [Volume fraction] 37.6 % 40-54 [facility] Ketones Test strip Ql (U)Ord ered By: Carlos Cavazos on 11-24-2022 Ketones Ql (U) Negative Negative [facility] Laboratory - Chemistry and C hemistry - challengeOrdered By: Carlos Cavazos on 11-24-2022 ALP [Catalytic activity/Vol] 103 U/L 45-117 [facility] ALT [Catalytic activity/Vol] 14 U/L 16-61 [facility] CO2 [Moles/Vol] 26.0 mmol/L 21.0-32.0 [facility] Globulin (S) [Mass/Vol] 4.0 g/dL 2.2-4.2 [facility] Urea nitrogen/Creatinine [Mass ratio] 24.1 mg/mg 10-20 [facility] Laboratory - Hematology and Cell countsOrdered By: Carlos Cavazos on 11-24-2022 Erythrocyte distribution width (RBC) [Entitic vol] 49.4 fL 35.1-43.9 [facility] Erythrocyte distribution width (RBC) [Ratio] 16.0 % 11.6-14.6 [facility] MCH (RBC) [Entitic mass] 26.6 pg 27.0-32.0 [facility] MCHC Auto (RBC) [Mass/Vol]Or dered By: Carlos Cavazos on 11-24-2022 MCHC (RBC) [Mass/Vol] 31.4 g/dL 32-36 [facility] Mucus LM Ql (Urine sed)Order ed By: Carlos Cavazos on 11-24-2022 Mucus Ql (Urine sed) 0 SEEN /hpf [facility] Nitrite Test strip Ql (U)Ord ered By: Carlos Cavazos on 11-24-2022 Nitrite Ql (U) Negative Negative [facility] No Panel InformationOrdered By: Carlos Cavazos on 11-24-2022 Estimated GFR (MDRD) Amer 118 mL/min >60 [facility] Comment on above: GFR Calc Estimated GFR (MDRD) Non-Af Amer 97 mL/min >60 [facility] Comment on above: Non- GFR Calc Platelets bldOrdered By: Ted Cavazos on 11-24-2022 Platelets (Bld) [#/Vol] 309 10*3/uL 150-450 [facility] Protein Test strip Ql (U)Ord ered By: Carlos Cavzaos on 11-24-2022 Protein Ql (U) Negative Negative [facility] Serum or plasma albumin oral urement (mass/volume)Ordered By: Carlos Cavazos on 11-24-2022 Albumin [Mass/Vol] 2.9 g/dL 3.2-5.0 [facility] Serum or plasma albumin/glob ulin mass ratioOrdered By: Carlos Cavazos on 11-24-2022 Albumin/Globulin [Mass ratio] 0.7 {ratio} 0.9-2.4 [facility] Serum or plasma calcium oral urement (mass/volume)Ordered By: Carlos Cavazos on 11-24-2022 Calcium [Mass/Vol] 8.7 mg/dL 8.5-10.1 [facility] Serum or plasma creatinine m easurement (mass/volume)Ordered By: Carlos Cavazos on 11-24-2022 Creatinine [Mass/Vol] 0.83 mg/dL 0.70-1.30 [facility] Comment on above: The validity of the calculated GFR & GFRAA in patients over 70 years has not been determined. Clinical correlation is essential. Serum or plasma urea nitroge n measurement (mass/volume)Ordered By: Carlos Cavazos on 11-24-2022 Urea nitrogen [Mass/Vol] 20 mg/dL 7-18 [facility] Squamous epithelial cells de tection in urine sediment by light microscopyOrdered By: Carlos Cavazos on 11-24-2022 Epithelial cells.squamous LM Ql (Urine sed) 0 SEEN /hpf 0-5 [facility] Thin prep Papanicolaou smear with manual screeningOrdered By: Carlos Cavazos on 11-24-2022 Thin prep Papanicolaou smear with manual screening 10 U/L 15-37 [facility] Thin prep Papanicolaou smear with manual screening 5 5-15 [facility] Urine blood detectionOrdered By: Carlos Cavazos on 11-24-2022 RBC Ql (U) Negative Negative [facility] RBC Ql (U) 0 SEEN /hpf 0-5 [facility] Urine clarityOrdered By: Ted Cavazos on 11-24-2022 Clarity (U) Clear Clear [facility] Urine color determinationOrd ered By: Carlos Cavazos on 11-24-2022 Color (U) Yellow Yellow [facility] Urine glucose detectionOrder ed By: Carlos Cavazos on 11-24-2022 Glucose Ql (U) Normal mg/dl Normal [facility] Urine leukocyte esterase det ection by dipstickOrdered By: Carlos Cavazos on 11-24-2022 Leukocyte esterase Test strip Ql (U) Negative Negative [facility] Urine pHOrdered By: Carlos flores on 11-24-2022 pH (U) 7.0 [pH] 5.0 - 8.0 [facility] Urine sediment bacteria coun t by microscopy (number/high power field)Ordered By: Carlos Cavazos on 11-24-2022 Bacteria LM.HPF (Urine sed) [#/Area] 0 /[HPF] None Seen [facility] Urine specific gravity measu rementOrdered By: Carlos Cavazos on 11-24-2022 Specific gravity (U) [Rel density] 1.010 1.002-1.030 [facility] Urobilinogen Auto test strip Ql (U)Ordered By: Carlos Cavazos on 11-24-2022 Urobilinogen Ql (U) Normal mg/dl Normal [facility] Laboratory - CoagulationOrde red By: Carlos Cavazos on 11-23-2022 INR Coag (Bld) [Relative time] 2.2 {INR} [facility] Comment on above: Critical Value > 4.0 Whole blood prothrombin time Ordered By: Carlos Cavazos on 11-23-2022 PT Coag (Bld) [Time] 24.5 s 11.7-14.9 [facility] Basophil percentageOrdered B y: Carlos Cavazos on 11-22-2022 Chloride [Moles/Vol] 105 mmol/L 98-107 [facility] Glucose [Mass/Vol] 91 mg/dL 74-106 [facility] Potassium [Moles/Vol] 4.1 mmol/L 3.5-5.1 [facility] Sodium [Moles/Vol] 138 mmol/L 136-145 [facility] WBC (Bld) [#/Vol] 12.0 10*3/uL 4.4-11.0 [facility] Blood erythrocytes count (nu mber/volume)Ordered By: Carlos Cavazos on 11-22-2022 RBC (Bld) [#/Vol] 4.65 10*6/uL 4.6-6.2 [facility] Blood hemoglobin measurement (mass/volume)Ordered By: Carlos Cavazos on 11-22-2022 Hemoglobin (Bld) [Mass/Vol] 12.4 g/dL 13.0-16.5 [facility] Blood platelet mean volumeOr dered By: Carlos Cavazos on 11-22-2022 Platelet mean volume (Bld) [Entitic vol] 10.3 fL 6.2-12.0 [facility] Determination of erythrocyte mean corpuscular volume (MCV)Ordered By: Carlos Cavazos on 11-22-2022 MCV (RBC) [Entitic vol] 86.0 fL 80-94 [facility] Hematocrit Auto (Bld) [Volum e fraction]Ordered By: Carlos Cavazos on 11-22-2022 Hematocrit (Bld) [Volume fraction] 40.0 % 40-54 [facility] Laboratory - Chemistry and C hemistry - challengeOrdered By: Carlos Cavazos on 11-22-2022 CO2 [Moles/Vol] 25.0 mmol/L 21.0-32.0 [facility] Urea nitrogen/Creatinine [Mass ratio] 23.6 mg/mg 10-20 [facility] Laboratory - Hematology and Cell countsOrdered By: Carlos Cavazos on 11-22-2022 Erythrocyte distribution width (RBC) [Entitic vol] 50.0 fL 35.1-43.9 [facility] Erythrocyte distribution width (RBC) [Ratio] 15.9 % 11.6-14.6 [facility] MCH (RBC) [Entitic mass] 26.7 pg 27.0-32.0 [facility] MCHC Auto (RBC) [Mass/Vol]Or dered By: Carlos Cavazos on 11-22-2022 MCHC (RBC) [Mass/Vol] 31.0 g/dL 32-36 [facility] No Panel InformationOrdered By: Carlos Cavazos on 11-22-2022 Estimated GFR (MDRD) Amer 115 mL/min >60 [facility] Comment on above: GFR Calc Estimated GFR (MDRD) Non-Af Amer 95 mL/min >60 [facility] Comment on above: Non- GFR Calc Platelets bldOrdered By: Ted Cavazos on 11-22-2022 Platelets (Bld) [#/Vol] 320 10*3/uL 150-450 [facility] Serum or plasma calcium oral urement (mass/volume)Ordered By: Carlos Cavazos on 11-22-2022 Calcium [Mass/Vol] 8.7 mg/dL 8.5-10.1 [facility] Serum or plasma creatinine m easurement (mass/volume)Ordered By: Carlos Cavazos on 11-22-2022 Creatinine [Mass/Vol] 0.85 mg/dL 0.70-1.30 [facility] Comment on above: The validity of the calculated GFR & GFRAA in patients over 70 years has not been determined. Clinical correlation is essential. Serum or plasma urea nitroge n measurement (mass/volume)Ordered By: Carlos Cavazos on 11-22-2022 Urea nitrogen [Mass/Vol] 20 mg/dL 7-18 [facility] Thin prep Papanicolaou smear with manual screeningOrdered By: Carlos Cavazos on 11-22-2022 Thin prep Papanicolaou smear with manual screening 8 5-15 [facility] - CoagulationOrde red By: Carlos Cavazos on 11-09-2022 INR Coag (Bld) [Relative time] 2.1 {INR} [facility] Comment on above: Critical Value > 4.0 Whole blood prothrombin time Ordered By: Carlos Cavazos on 11-09-2022 PT Coag (Bld) [Time] 22.6 s 11.7-14.9 [facility] - CoagulationOrde red By: Carlos Cavazos on 10-26-2022 INR Coag (Bld) [Relative time] 2.6 {INR} [facility] Comment on above: Critical Value > 4.0 Whole blood prothrombin time Ordered By: Carlos Cavazos on 10-26-2022 PT Coag (Bld) [Time] 28.5 s 11.7-14.9 [facility] - CoagulationOrde red By: Carlos Cavazos on 10-12-2022 INR Coag (Bld) [Relative time] 2.4 {INR} [facility] Comment on above: Critical Value > 4.0 Whole blood prothrombin time Ordered By: Carlos Cavazos on 10-12-2022 PT Coag (Bld) [Time] 26.4 s 11.7-14.9 [facility] - CoagulationOrde red By: Carlos Cavazos on 10-05-2022 INR Coag (Bld) [Relative time] 2.6 {INR} [facility] Comment on above: Critical Value > 4.0 Whole blood prothrombin time Ordered By: Carlos Cavazos on 10-05-2022 PT Coag (Bld) [Time] 28.0 s 11.7-14.9 [facility] - CoagulationOrde red By: Carlos Cavazos on 09-28-2022 INR Coag (Bld) [Relative time] 2.7 {INR} [facility] Comment on above: Critical Value > 4.0 Whole blood prothrombin time Ordered By: Carlos Cavazos on 09-28-2022 PT Coag (Bld) [Time] 28.9 s 11.7-14.9 [facility] - CoagulationOrde red By: Carlos Cavazos on 09-14-2022 INR Coag (Bld) [Relative time] 2.5 {INR} [facility] Comment on above: Critical Value > 4.0 Whole blood prothrombin time Ordered By: Carlos Cavazos on 09-14-2022 PT Coag (Bld) [Time] 27.4 s 11.7-14.9 [facility] - CoagulationOrde red By: Carlos Cavazos on 08-31-2022 INR Coag (Bld) [Relative time] 2.3 {INR} [facility] Comment on above: Critical Value > 4.0 Whole blood prothrombin time Ordered By: Carlos Cavazos on 08-31-2022 PT Coag (Bld) [Time] 25.4 s 11.7-14.9 [facility] Basophil percentageOrdered B y: Carlos Cavazos on 08-23-2022 Chloride [Moles/Vol] 108 mmol/L 98-107 [facility] Glucose [Mass/Vol] 86 mg/dL 74-106 [facility] Potassium [Moles/Vol] 4.3 mmol/L 3.5-5.1 [facility] Sodium [Moles/Vol] 136 mmol/L 136-145 [facility] WBC (Bld) [#/Vol] 10.0 10*3/uL 4.4-11.0 [facility] Blood erythrocytes count (nu mber/volume)Ordered By: Carlos Cavazos on 08-23-2022 RBC (Bld) [#/Vol] 4.77 10*6/uL 4.6-6.2 [facility] Blood hemoglobin measurement (mass/volume)Ordered By: Carlos Cavazos on 08-23-2022 Hemoglobin (Bld) [Mass/Vol] 12.5 g/dL 13.0-16.5 [facility] Blood platelet mean volumeOr dered By: Carlos Cavazos on 08-23-2022 Platelet mean volume (Bld) [Entitic vol] 11.0 fL 6.2-12.0 [facility] Determination of erythrocyte mean corpuscular volume (MCV)Ordered By: Carlos Cavazos on 08-23-2022 MCV (RBC) [Entitic vol] 84.3 fL 80-94 [facility] Hematocrit Auto (Bld) [Volum e fraction]Ordered By: Carlos Cavazos on 08-23-2022 Hematocrit (Bld) [Volume fraction] 40.2 % 40-54 [facility] - Chemistry and C hemistry - challengeOrdered By: aCrlos Cavazos on 08-23-2022 CO2 [Moles/Vol] 24.0 mmol/L 21.0-32.0 [facility] Urea nitrogen/Creatinine [Mass ratio] 22.8 mg/mg 10-20 [facility] - Hematology and Cell countsOrdered By: Carlos Cavazos on 08-23-2022 Erythrocyte distribution width (RBC) [Entitic vol] 49.3 fL 35.1-43.9 [facility] Erythrocyte distribution width (RBC) [Ratio] 16.0 % 11.6-14.6 [facility] MCH (RBC) [Entitic mass] 26.2 pg 27.0-32.0 [facility] MCHC Auto (RBC) [Mass/Vol]Or dered By: Carlos Cavazos on 08-23-2022 MCHC (RBC) [Mass/Vol] 31.1 g/dL 32-36 [facility] No Panel InformationOrdered By: Carlos Cavazos on 08-23-2022 Estimated GFR (MDRD) Amer 134 mL/min >60 [facility] Comment on above: GFR Calc Estimated GFR (MDRD) Non-Af Amer 110 mL/min >60 [facility] Comment on above: Non- GFR Calc Platelets bldOrdered By: Ted Cavazos on 08-23-2022 Platelets (Bld) [#/Vol] 268 10*3/uL 150-450 [facility] Serum or plasma calcium oral urement (mass/volume)Ordered By: Carlos Cavazos on 08-23-2022 Calcium [Mass/Vol] 9.1 mg/dL 8.5-10.1 [facility] Serum or plasma creatinine m easurement (mass/volume)Ordered By: Carlos Cavazos on 08-23-2022 Creatinine [Mass/Vol] 0.74 mg/dL 0.70-1.30 [facility] Comment on above: The validity of the calculated GFR & GFRAA in patients over 70 years has not been determined. Clinical correlation is essential. Serum or plasma urea nitroge n measurement (mass/volume)Ordered By: Carlos Cavazos on 08-23-2022 Urea nitrogen [Mass/Vol] 17 mg/dL 11-21 [facility] Thin prep Papanicolaou smear with manual screeningOrdered By: Carlos Cavazos on 08-23-2022 Thin prep Papanicolaou smear with manual screening 4 09-18 [facility] - CoagulationOrde red By: Carlos Cavazos on 08-17-2022 INR Coag (Bld) [Relative time] 2.8 {INR} [facility] Comment on above: Critical Value > 4.0 Whole blood prothrombin time Ordered By: Carlos Cavazos on 08-17-2022 PT Coag (Bld) [Time] 29.6 s 11.7-14.9 [facility] - CoagulationOrde red By: Carlos Cavazos on 08-14-2022 INR Coag (Bld) [Relative time] 3.9 {INR} [facility] Comment on above: Critical Value > 4.0 Whole blood prothrombin time Ordered By: Carlos Cavaozs on 08-14-2022 PT Coag (Bld) [Time] 40.6 s 11.7-14.9 [facility] - CoagulationOrde red By: Carlos Cavazos on 07-31-2022 INR Coag (Bld) [Relative time] 2.5 {INR} [facility] Comment on above: Critical Value > 4.0 Whole blood prothrombin time Ordered By: Carlos Cavazos on 07-31-2022 PT Coag (Bld) [Time] 26.8 s 11.7-14.9 [facility] INR in Blood by Coagulation assayOrdered By: Carlos Cavazos on 07-24-2022 INR Coag (Bld) [Relative time] 2.3 {INR} [facility] - CoagulationOrde red By: Carlos Cavazos on 07-24-2022 PT Coag (PPP) [Time] 24.7 s 11.7-14.9 [facility] - CoagulationOrde red By: Carlos Cavazos on 07-20-2022 INR Coag (Bld) [Relative time] 1.9 {INR} [facility] Comment on above: Critical Value > 4.0 Whole blood prothrombin time Ordered By: Carlos Cavazos on 07-20-2022 PT Coag (Bld) [Time] 20.6 s 11.7-14.9 [facility] - CoagulationOrde red By: Carlos Cavazos on 07-17-2022 INR Coag (Bld) [Relative time] 1.3 {INR} [facility] Comment on above: Critical Value > 4.0 Whole blood prothrombin time Ordered By: Carlos Cavazos on 07-17-2022 PT Coag (Bld) [Time] 15.9 s 11.7-14.9 [facility] Basophil percentageOrdered B y: Carlos Cavazos on 07-11-2022 Chloride [Moles/Vol] 105 mmol/L 98-107 [facility] Glucose [Mass/Vol] 97 mg/dL 74-106 [facility] Potassium [Moles/Vol] 3.9 mmol/L 3.5-5.1 [facility] Sodium [Moles/Vol] 140 mmol/L 136-145 [facility] WBC (Bld) [#/Vol] 9.4 10*3/uL 4.4-11.0 [facility] Blood erythrocytes count (nu mber/volume)Ordered By: Carlos Cavazos on 07-11-2022 RBC (Bld) [#/Vol] 4.66 10*6/uL 4.6-6.2 [facility] Blood hemoglobin measurement (mass/volume)Ordered By: aCrlos Cavazos on 07-11-2022 Hemoglobin (Bld) [Mass/Vol] 12.0 g/dL 13.0-16.5 [facility] Blood platelet mean volumeOr dered By: Carlos Cavazos on 07-11-2022 Platelet mean volume (Bld) [Entitic vol] 10.4 fL 6.2-12.0 [facility] Determination of erythrocyte mean corpuscular volume (MCV)Ordered By: Carlos Cavazos on 07-11-2022 MCV (RBC) [Entitic vol] 83.7 fL 80-94 [facility] Hematocrit Auto (Bld) [Volum e fraction]Ordered By: Carlos Cavazos on 07-11-2022 Hematocrit (Bld) [Volume fraction] 39.0 % 40-54 [facility] - Chemistry and C hemistry - challengeOrdered By: Carlos Cavazos on 07-11-2022 CO2 [Moles/Vol] 28.0 mmol/L 21.0-32.0 [facility] Urea nitrogen/Creatinine [Mass ratio] 23.0 mg/mg 10-20 [facility] - Hematology and Cell countsOrdered By: Carlos Cavazos on 07-11-2022 Erythrocyte distribution width (RBC) [Entitic vol] 51.0 fL 35.1-43.9 [facility] Erythrocyte distribution width (RBC) [Ratio] 16.8 % 11.6-14.6 [facility] MCH (RBC) [Entitic mass] 25.8 pg 27.0-32.0 [facility] MCHC Auto (RBC) [Mass/Vol]Or dered By: Carlos Cavazos on 07-11-2022 MCHC (RBC) [Mass/Vol] 30.8 g/dL 32-36 [facility] No Panel InformationOrdered By: Carlos Cavazos on 07-11-2022 Estimated GFR (MDRD) Amer 126 mL/min >60 [facility] Comment on above: GFR Calc Estimated GFR (MDRD) Non-Af Amer 104 mL/min >60 [facility] Comment on above: Non- GFR Calc Platelets bldOrdered By: Ted Cavazos on 07-11-2022 Platelets (Bld) [#/Vol] 291 10*3/uL 150-450 [facility] Serum or plasma calcium oral urement (mass/volume)Ordered By: Carlos Cavazos on 07-11-2022 Calcium [Mass/Vol] 9.2 mg/dL 8.5-10.1 [facility] Serum or plasma creatinine m easurement (mass/volume)Ordered By: Carlos Cavazos on 07-11-2022 Creatinine [Mass/Vol] 0.78 mg/dL 0.70-1.30 [facility] Comment on above: The validity of the calculated GFR & GFRAA in patients over 70 years has not been determined. Clinical correlation is essential. Serum or plasma urea nitroge n measurement (mass/volume)Ordered By: Carlos Cavazos on 07-11-2022 Urea nitrogen [Mass/Vol] 18 mg/dL 7-18 [facility] Thin prep Papanicolaou smear with manual screeningOrdered By: Carlos Cavazos on 07-11-2022 Thin prep Papanicolaou smear with manual screening 7 5-15 [facility] - CoagulationOrde red By: Carlos Cavazos on 07-10-2022 INR Coag (Bld) [Relative time] 1.8 {INR} [facility] Comment on above: Critical Value > 4.0 Whole blood prothrombin time Ordered By: Carlos Cavazos on 07-10-2022 PT Coag (Bld) [Time] 21.0 s 11.7-14.9 [facility] - CoagulationOrde red By: Carlos Cavazos on 07-03-2022 INR Coag (Bld) [Relative time] 1.9 {INR} [facility] Comment on above: Critical Value > 4.0 Whole blood prothrombin time Ordered By: Carlos Cavazos on 07-03-2022 PT Coag (Bld) [Time] 22.7 s 11.7-14.9 [facility] INR in Blood by Coagulation assayOrdered By: Carlos Cavazos on 06-27-2022 INR Coag (Bld) [Relative time] 2.9 {INR} [facility] - CoagulationOrde red By: Carlos Cavazos on 06-27-2022 PT Coag (PPP) [Time] 29.9 s 11.7-14.9 [facility] - CoagulationOrde red By: Carlos Cavazos on 06-13-2022 INR Coag (Bld) [Relative time] 2.1 {INR} [facility] Comment on above: Critical Value > 4.0 Whole blood prothrombin time Ordered By: Carlos Cavazos on 06-13-2022 PT Coag (Bld) [Time] 24.4 s 11.7-14.9 [facility] - CoagulationOrde red By: Carlos Cavazos on 06-06-2022 INR Coag (Bld) [Relative time] 1.5 {INR} [facility] Comment on above: Critical Value > 4.0 Whole blood prothrombin time Ordered By: Carlos Cavazos on 06-06-2022 PT Coag (Bld) [Time] 18.4 s 11.7-14.9 [facility] Basophil percentageOrdered B y: Carlos Cavazos on 05-30-2022 Chloride [Moles/Vol] 105 mmol/L 98-107 [facility] Glucose [Mass/Vol] 95 mg/dL 74-106 [facility] Potassium [Moles/Vol] 3.9 mmol/L 3.5-5.1 [facility] Sodium [Moles/Vol] 140 mmol/L 136-145 [facility] WBC (Bld) [#/Vol] 7.6 10*3/uL 4.4-11.0 [facility] Blood erythrocytes count (nu mber/volume)Ordered By: Carlos Cavazos on 05-30-2022 RBC (Bld) [#/Vol] 4.79 10*6/uL 4.6-6.2 [facility] Blood hemoglobin measurement (mass/volume)Ordered By: Carlos Cavazos on 05-30-2022 Hemoglobin (Bld) [Mass/Vol] 12.1 g/dL 13.0-16.5 [facility] Blood platelet mean volumeOr dered By: Carlos Cavazos on 05-30-2022 Platelet mean volume (Bld) [Entitic vol] 10.4 fL 6.2-12.0 [facility] Determination of erythrocyte mean corpuscular volume (MCV)Ordered By: Carlos Cavazos on 05-30-2022 MCV (RBC) [Entitic vol] 82.5 fL 80-94 [facility] Hematocrit Auto (Bld) [Volum e fraction]Ordered By: Carlos Cavazos on 05-30-2022 Hematocrit (Bld) [Volume fraction] 39.5 % 40-54 [facility] INR in Blood by Coagulation assayOrdered By: Carlos Cavazos on 05-30-2022 INR Coag (Bld) [Relative time] 1.9 {INR} [facility] - Chemistry and C hemistry - challengeOrdered By: Carlos Cavazos on 05-30-2022 CO2 [Moles/Vol] 27.0 mmol/L 21.0-32.0 [facility] Urea nitrogen/Creatinine [Mass ratio] 21.4 mg/mg 10-20 [facility] - CoagulationOrde red By: Carlos Cavazos on 05-30-2022 PT Coag (PPP) [Time] 21.6 s 11.7-14.9 [facility] - Hematology and Cell countsOrdered By: Carlos Cavazos on 05-30-2022 Erythrocyte distribution width (RBC) [Entitic vol] 48.8 fL 35.1-43.9 [facility] Erythrocyte distribution width (RBC) [Ratio] 16.2 % 11.6-14.6 [facility] MCH (RBC) [Entitic mass] 25.3 pg 27.0-32.0 [facility] MCHC Auto (RBC) [Mass/Vol]Or dered By: Carlos Cavazos on 05-30-2022 MCHC (RBC) [Mass/Vol] 30.6 g/dL 32-36 [facility] No Panel InformationOrdered By: Carlos Cavazos on 05-30-2022 Estimated GFR (MDRD) Amer 133 mL/min >60 [facility] Comment on above: GFR Calc Estimated GFR (MDRD) Non-Af Amer 110 mL/min >60 [facility] Comment on above: Non- GFR Calc Platelets bldOrdered By: Ted Cavazos on 05-30-2022 Platelets (Bld) [#/Vol] 308 10*3/uL 150-450 [facility] Serum or plasma calcium oral urement (mass/volume)Ordered By: Carlos Cavazos on 05-30-2022 Calcium [Mass/Vol] 9.1 mg/dL 8.5-10.1 [facility] Serum or plasma creatinine m easurement (mass/volume)Ordered By: Carlos Cavazos on 05-30-2022 Creatinine [Mass/Vol] 0.75 mg/dL 0.70-1.30 [facility] Comment on above: The validity of the calculated GFR & GFRAA in patients over 70 years has not been determined. Clinical correlation is essential. Serum or plasma urea nitroge n measurement (mass/volume)Ordered By: Carlos Cavazos on 05-30-2022 Urea nitrogen [Mass/Vol] 16 mg/dL 7-18 [facility] Thin prep Papanicolaou smear with manual screeningOrdered By: Carlos Cavazos on 05-30-2022 Thin prep Papanicolaou smear with manual screening 8 5-15 [facility] - CoagulationOrde red By: Carlos Cavazos on 05-16-2022 INR Coag (Bld) [Relative time] 2.6 {INR} [facility] Comment on above: Critical Value > 4.0 Whole blood prothrombin time Ordered By: Carlos Cavazos on 05-16-2022 PT Coag (Bld) [Time] 29.9 s 11.7-14.9 [facility] - CoagulationOrde red By: Carlos Cavazos on 05-02-2022 INR Coag (Bld) [Relative time] 2.0 {INR} [facility] Comment on above: Critical Value > 4.0 Whole blood prothrombin time Ordered By: Carlos Cavazos on 05-02-2022 PT Coag (Bld) [Time] 23.2 s 11.7-14.9 [facility] - CoagulationOrde red By: Carlos Cavazos on 04-27-2022 INR Coag (Bld) [Relative time] 2.7 {INR} [facility] Comment on above: Critical Value > 4.0 Whole blood prothrombin time Ordered By: Carlos Cavazos on 04-27-2022 PT Coag (Bld) [Time] 31.1 s 11.7-14.9 [facility] - CoagulationOrde red By: Carlos Cavazos on 04-26-2022 INR Coag (Bld) [Relative time] 2.8 {INR} [facility] Comment on above: Critical Value > 4.0 Whole blood prothrombin time Ordered By: Carlos Cavazos on 04-26-2022 PT Coag (Bld) [Time] 32.6 s 11.7-14.9 [facility] - CoagulationOrde red By: Carlos Cavazos on 04-11-2022 INR Coag (Bld) [Relative time] 2.9 {INR} [facility] Comment on above: Critical Value > 4.0 Whole blood prothrombin time Ordered By: Carlos Cavazos on 04-11-2022 PT Coag (Bld) [Time] 32.8 s 11.7-14.9 [facility] - CoagulationOrde red By: Carlos Cavazos on 03-28-2022 INR Coag (Bld) [Relative time] 2.1 {INR} [facility] Comment on above: Critical Value > 4.0 Whole blood prothrombin time Ordered By: Carlos Cavazos on 03-28-2022 PT Coag (Bld) [Time] 24.8 s 11.7-14.9 [facility] - CoagulationOrde red By: Carlos Cavazos on 03-23-2022 INR Coag (Bld) [Relative time] 1.7 {INR} [facility] Comment on above: Critical Value > 4.0 Whole blood prothrombin time Ordered By: Carlos Cavazos on 03-23-2022 PT Coag (Bld) [Time] 20.9 s 11.7-14.9 [facility] - CoagulationOrde red By: Carlos Cavazos on 03-16-2022 INR Coag (Bld) [Relative time] 1.7 {INR} [facility] Comment on above: Critical Value > 4.0 Whole blood prothrombin time Ordered By: Carlos Cavazos on 03-16-2022 PT Coag (Bld) [Time] 19.9 s 11.7-14.9 [facility] - CoagulationOrde red By: Carlos Cavazos on 03-09-2022 INR Coag (Bld) [Relative time] 1.8 {INR} [facility] Comment on above: Critical Value > 4.0 Whole blood prothrombin time Ordered By: Carlos Cavazos on 03-09-2022 PT Coag (Bld) [Time] 21.9 s 11.7-14.9 [facility] - CoagulationOrde red By: Carlos Cavazos on 03-06-2022 INR Coag (Bld) [Relative time] 1.7 {INR} [facility] Comment on above: Critical Value > 4.0 Whole blood prothrombin time Ordered By: Carlos Cavazos on 03-06-2022 PT Coag (Bld) [Time] 20.0 s 11.7-14.9 [facility] CBC with Auto Differentialon 03-02-2022 Absolute Baso [...] vol] 8.5 fL 7.4 - 12.4 fL [facility]: MPV is a calculated measurement using platelet volume ratio. Platelets (Bld) [#/Vol] 411 10*3/uL 140 - 440 10*3/uL [facility] RBC (Bld) [#/Vol] 4.61 10*6/uL 4.40 - 5.9 0 10*6/uL [facility] WBC (Bld) [#/Vol] 14.5 10*3/uL High 3.6 - 10.7 10*3/uL [facility] Test Performed by [facility], [address] [place] [id number] [facility] CT HEAD WO CONTRASTon 2021 Patient Name: ANDREW SIFUENTES Computed Tomography ACCESSION EXAM DATE/TIME PROCEDURE ORDERING PROVIDER [id number] 03/02/2022 13:[address] Head or Brain w/o [id number] -LANETTE MUNGUIA Contrast CPT code 41240 Reason For Exam (CT Head or Brain [...] tubes (parent active on the left for WORK ADJUSTMENT INSTRUCTOR shunting and disconnected on the right). 2. No definite evidence of acute infarction (MRI more sensitive), mass lesion, nor hemorrhage. Report Dictated on --- Final --- Dictated: 03/02/2022 1:35 pm Dictating Physician: MD GUTIERREZ WILLIAM Signed Date and Time: 03/02/2022 1:39 pm Signed by: MD GUTIERREZ WILLIAM Transcribed Date and Time: 03/02/2022 1:35 [facility] Anant Gutierrez MD - 03/02/2022 Patient Name: ANDREW SIFUENTES Computed Tomography ACCESSION EXAM DATE/TIME PROCEDURE ORDERING PROVIDER [id number] 03/02/2022 13:[address] Head or Brain w/o [id number] -EZRA LANETTE Contrast CPT code 16922 Reason For Exam (CT Head or Brain [...] tubes (parent active on the left for WORK ADJUSTMENT INSTRUCTOR shunting and disconnected on the right). 2. [...] CONTRASTOrdered B y: Anant Gutierrez on [facility]-02-20[facility] CT Head or Brain w/o Contras ton 03-02-2022 CT Head or Brain w/o Contrast [facility]: [id number] Tom[facility] ACCESSION EXAM DATE/TIME PROCEDURE ORDERING PROVIDER [id number] 03/02/2022 13:[address] Head or Brain w/o [id number] -LANETTE MUNGUIA Contrast CPT code 19495 Reason For Exam (CT Head or Brain [...] tubes (parent active on the left for WORK ADJUSTMENT INSTRUCTOR shunting and disconnected on the right). 2. No definite evidence of acute infarction (MRI more sensitive), mass lesion, nor hemorrhage. Report Dictated on Final Dictated: 03/02/2022 1:35 pm Dictating Physician: MD GUTIERREZ WILLIAM Signed Date and Time: 03/02/2022 1:39 pm Signed by: MD GUTIERREZ WILLIAM Transcribed Date and Time: 03/02/2022 1:35 Normal [facility] Comp Metabolic Panelon 03-02 Calcium [Mass/Vol] 9.1 mg/dL Normal 8.4-10.4 [facility] Comment on above: Performed By: #### H EMDF, PT, CMP3 ####[place] [id number] [place], [place] ALP [Catalytic activity/Vol] 128 U/L High 38-126 [facility] Comment on above: Performed By: #### H EMDF PT, CMP3 ####[place] [id number] [place], [place] ALT [Catalytic activity/Vol] 12 U/L Normal 0-49 [facility] Comment on above: Result Comment: The ALT test is performed by an updated assay method. Please note that the reference intervals have been changed and are now sex specific. Performed By: #### H EMDF, PT, CMP3 ####[place] [address] [address] [place], [place] Anion gap [Moles/Vol] 7 mmol/L Normal 3-13 [facility] Comment on above: Performed By: #### H EMDF, PT, CMP3 ####[place] [address] [place], [place] AST [Catalytic activity/Vol] 24 U/L Normal 15-46 [facility] Comment on above: Performed By: #### H EMDF, PT, CMP3 ####[place] [address] [address] [place], [place] Bilirubin [Mass/Vol] 0.4 mg/dL Normal 0.2-1.3 [facility] Comment on above: Performed By: #### H EMDF, PT, CMP3 ####[place] [address] [address] [place], [place] CO2 [Moles/Vol] 27 mmol/L Normal 22-30 [facility] Comment on above: Performed By: #### H EMDF, PT, CMP3 ####[place] [id number] [place], [place] Glucose [Mass/Vol] 109 mg/dL High 70-100 [facility] Comment on above: Performed By: #### H EMDF, PT, CMP3 ####[place] [address] [address] [place], [place] Protein [Mass/Vol] 8.1 g/dL Normal 6.3-8.2 [facility] Comment on above: Performed By: #### H CHRISTEL MOTT, CMP3 ####[facility] [place], [place] Urea nitrogen [Mass/Vol] 22 mg/dL High 7-17 [facility] Comment on above: Performed By: #### H CHRISTEL MOTT, CMP3 ####[facility] [place], [place] Creatinine [Mass/Vol] 0.63 mg/dL Normal 0.52-1.25 [facility] Comment on above: Performed By: #### H CHRISTEL MOTT, CMP3 ####[place] [id number] [place], [place] eGFR OTHER > 90.0 Normal >60 [facility] Comment on above: Result Comment: KDIG O [...] creatinine secretion. Performed By: #### H CHRISTEL MOTT, CMP3 ####[facility] [address] [place], [place] GFR/1.73 sq M.predicted among blacks MDRD (S/P/Bld) [Vol rate/Area] mL/min/{1.73_m2} Normal >60 [facility] Comment on above: Performed By: #### H TIERA PT, CMP3 ####[facility] [place], [place] Albumin [Mass/Vol] 4.1 g/dL Normal 3.5-5.0 [facility] Comment on above: Performed By: #### H EMDF, PT, CMP3 ####[facility] [place], [place] Chloride [Moles/Vol] 106 mmol/L Normal 98-107 [facility] Comment on above: Performed By: #### H EMDF, PT, CMP3 ####[facility] [place], [place] Potassium [Moles/Vol] 3.7 mmol/L Normal 3.5-5.1 [facility] Comment on above: Performed By: #### H EMDF, PT, CMP3 ####[address] [place], [place] Sodium [Moles/Vol] 140 mmol/L Normal 135-145 [facility] Comment on above: Performed By: #### H EMDF, PT, CMP3 ####[address] [place], [place] Comprehensive Metabolic Pane kiel 03-02-2022 Albumin [Mass/Vol] 4.1 g/dL 3.5 - 5.0 g/dL [facility] ALP (Bld) [Catalytic activity/Vol] 128 U/L High 38 - 126 U/L [facility] ALT [Catalytic activity/Vol] 12 U/L 0 - 49 U/L [facility] Comment on above: The ALT test is [...] P INF mL/min [facility] EGFR IF NonAfrican Belizean mL/min 60 - PINF mL/min [facility] Comment on above: KDIGO guidelines pro vide [...] 109 mg/dL High 70 - 100 mg/dL [facility] Interpretation and review of laboratory results Abnormal [facility] Potassium [Moles/Vol] 3.7 mmol/L 3.5 - 5.1 mmol/L [facility] Protein [Mass/Vol] 8.1 g/dL 6.3 - 8.2 g/dL [facility] Sodium [Moles/Vol] 140 mmol/L 135 - 145 mmol/L [facility] Urea nitrogen (BldV) [Mass/Vol] 22 mg/dL High 7 - 17 mg/dL [facility] Test Performed by [id number] [place] [address] LAB [facility] ED Provider Noteon 2 ED Provider Note [facility] DE[facility] EMERGENCY DEPARTMENT ENCOUNTER Pt Name: Andrew Sifuentes Birthdate 1950 Date of evaluation: 03/02/2022 Provider: Lanette Munguia DO CHIEF COMPLAINT Chief Complaint Patient presents with Fall Patient had unwitnessed fall at [facility] landed on butt. Is on thinners, denies LOC, denies head injury has no complaints at this time HISTORY OF PRESENT ILLNESS (Location/Symptom, Timing/Onset, Context/Setting, Quality, Duration, Modifying Factors, Severity) Note limiting factors. I wore a N-95 mask for the entirety of this encounter. Andrew Sifuentes is a 71 y.o. male medical history of hydrocephalus status post WORK ADJUSTMENT INSTRUCTOR shunt, history of DVT on Coumadin who presents to the emergency department from [facility] for evaluation following mechanical fall. Patient rolled out of bed. Unwitnessed. Found down on ground by nursing staff. Nonambulatory at baseline. Patient reports he did not hit his head. Has no acute complaints. Denies any pain or traumatic injury. Per nursing protocol at [facility], sent to emergency department due to unwitnessed [...] Hemorrhoids Hydrocephalus, adult (HCC) Kidney stone Neuropathy WORK ADJUSTMENT INSTRUCTOR (ventriculoperitoneal) shunt status SURGICAL HISTORY Past Surgical [...] ?F (36.7 ?C) Resp 18 Ht 5' 9" (1.753 m) Wt 79.4 kg (175 lb) [...] CONTRAST R (more content not included)... [facility] Autodiffon 03-02 Abs Baso Cnt 0.2 10*3/uL Normal 0.0-0.2 [facility] Comment on above: Performed By: #### H TIERA PT, CMP3 ####[address] [address] Abs Neutrophile Cnt 10.7 10*3/uL High 1.8-7.0 [facility] Comment on above: Performed By: #### H TIERA PT, CMP3 ####[address] [address] Basophils/100 WBC (Bld) 1.1 % Normal 0.0-2.0 [facility] Comment on above: Performed By: #### H TIERA PT, CMP3 ####[address] [address] Eosinophils (Bld) [#/Vol] 0.1 10*3/uL Normal 0.0-0.5 [facility] Comment on above: Performed By: #### H TIERA PT, CMP3 ####[address] [address] Eosinophils/100 WBC (Bld) 0.5 % Low 1.0-6.0 [facility] Comment on above: Performed By: #### H TIERA PT, CMP3 ####[address] [address] Granulocytes/100 WBC (Bld) 73.9 % Normal 40.0-80.0 [facility] Comment on above: Performed By: #### H EMDHeydi PT, CMP3 ####[address] [address] Lymphocytes (Bld) [#/Vol] 3.0 10*3/uL Normal 1.0-4.3 [facility] Comment on above: Performed By: #### H EMDF PT, CMP3 ####[address] [address] Lymphocytes/100 WBC (Bld) 20.6 % Normal 20.0-40.0 [facility] Comment on above: Performed By: #### H TIERA PT, CMP3 ####[address] [place], [place] Monocytes (Bld) [#/Vol] 0.6 10*3/uL Normal 0.0-0.8 [facility] Comment on above: Performed By: #### H TIERA PT, CMP3 ####[address] [place], [place] Monocytes/100 WBC (Bld) 3.9 % Normal 2.0-10.0 [facility] Comment on above: Performed By: #### H TIERA PT, CMP3 ####[address] Platelet mean volume (Bld) [Entitic vol] 8.5 fL Normal 7.4-12.4 [facility] Comment on above: Result Comment: MPV is a calculated measurement using platelet volume ratio. Performed By: #### H TIERA PT, CMP3 ####[address] Platelets (Bld) [#/Vol] 411 10*3/uL Normal 140-440 [facility] Comment on above: Performed By: #### H TIERA PT, CMP3 ####[address] Erythrocyte distribution width (RBC) [Ratio] 17.0 % High 11.5-14.5 [facility] Comment on above: Performed By: #### H TIERA PT, CMP3 ####[address] Hematocrit (Bld) [Volume fraction] 37.4 % Low 40.0-52.0 [facility] Comment on above: Performed By: #### H TIERA PT, CMP3 ####[address] Hemoglobin (Bld) [Mass/Vol] 12.1 g/dL Low 13.0-18.0 [facility] Comment on above: Performed By: #### H TIERA PT, CMP3 ####[address] [place], [place] MCH (RBC) [Entitic mass] 26.2 pg Normal 26.0-34.0 [facility] Comment on above: Performed By: #### H EMDF, PT, CMP3 ####[address] [place], [place] MCHC 32.3 % Normal 32.0-36.0 [facility] Comment on above: Performed By: #### H EMDF, PT, CMP3 ####[address] MCV (RBC) [Entitic vol] 81.1 fL Normal 80.0-98.0 [facility] Comment on above: Performed By: #### H EMDF, PT, CMP3 ####[address] RBC (Bld) [#/Vol] 4.61 10*6/uL Normal 4.40-5.90 [facility] Comment on above: Performed By: #### H EMDF, PT, CMP3 ####[address] [place], [place] WBC (Bld) [#/Vol] 14.5 10*3/uL High 3.6-10.7 [facility] Comment on above: Performed By: #### H EMDF, PT, CMP3 ####[address] Prothrombin Timeon 2 INR 1.9 High 0.9-1.1 [facility] Comment on above: Result Comment: Harry [...] Performed By: #### H EMDF, PT, CMP3 ####[address] [place] [address] PT Coag (PPP) [Time] 18.9 s High 9.0-12.0 [facility] Comment on above: Result Comment: . Performed By: #### H EMDF, PT, CMP3 ####[address] [place] [address] Protime-INRon 03-02-2022 INR Coag (Bld) [Relative time] 1.9 {INR} High [facility] Comment on above: Recommended Anticoag ulant Therapy: [...] Interpretation and review of laboratory results Abnormal [facility] PT Coag (PPP) [Time] 18.9 s High 9.0 - 12.0 s [facility] Comment on above: . Test Performed by [facility], [address] [place] [id number] [facility] LAB [facility] Laboratory - CoagulationOrde red By: Carlos Cavazos on 02-20-2022 INR Coag (Bld) [Relative time] 2.6 {INR} [facility] Comment on above: Critical Value > 4.0 Whole blood prothrombin time Ordered By: Carlos Cavazos on 02-20-2022 PT Coag (Bld) [Time] 30.1 s 11.7-14.9 [facility] Laboratory - CoagulationOrde red By: Carlos Cavazos on 02-13-2022 INR Coag (Bld) [Relative time] 2.3 {INR} [facility] Comment on above: Critical Value > 4.0 Whole blood prothrombin time Ordered By: Carlos Cavazos on 02-13-2022 PT Coag (Bld) [Time] 26.7 s 11.7-14.9 [facility] Laboratory - CoagulationOrde red By: Carlos Cavazos on 02-06-2022 INR Coag (Bld) [Relative time] 2.3 {INR} [facility] Comment on above: Critical Value > 4.0 Whole blood prothrombin time Ordered By: Carlos Cavazos on 02-06-2022 PT Coag (Bld) [Time] 26.6 s 11.7-14.9 [facility] Laboratory - Coagulationon 0 01-30-2022 INR Coag (Bld) [Relative time] 1.7 {INR} [facility] Work Phone: Comment on above: Critical Value > 4.0 Whole blood prothrombin time on 01-30-2022 PT Coag (Bld) [Time] 20.1 s 11.7-14.9 [facility] Work Phone: Laboratory - Coagulationon 0 01-26-2022 INR Coag (Bld) [Relative time] 1.8 {INR} [facility] Work Phone: Comment on above: Critical Value > 4.0 Whole blood prothrombin time on 01-26-2022 PT Coag (Bld) [Time] 21.8 s 11.7-14.9 [facility] Work Phone: Laboratory - Coagulationon 0 01-19-2022 INR Coag (Bld) [Relative time] 2.2 {INR} [facility] Work Phone: Comment on above: Critical Value > 4.0 Whole blood prothrombin time on 01-19-2022 PT Coag (Bld) [Time] 25.7 s 11.7-14.9 [facility] Work Phone: INR in Blood by Coagulation assayon 01-10-2022 INR Coag (Bld) [Relative time] 1.8 {INR} [facility] Work Phone: Laboratory - Coagulationon 0 01-10-2022 PT Coag (PPP) [Time] 20.9 s 11.7-14.9 [facility] Work Phone: Basophil percentageon 2021 Chloride [Moles/Vol] 107 mmol/L 98-[address] [facility] Work Phone: Glucose [Mass/Vol] 82 mg/dL 74-106 [facility] Work Phone: Potassium [Moles/Vol] 3.4 mmol/L 3.5-5.1 [address] [facility] Work Phone: Sodium [Moles/Vol] 143 mmol/L 136-145 [facility] Work Phone: WBC (Bld) [#/Vol] 10.4 10*3/uL 4.4-11.0 [facility] Work Phone: Blood erythrocytes count (nu mber/volume)on 01-05-2022 RBC (Bld) [#/Vol] 4.27 10*6/uL 4.6-6.2 [facility] Work Phone: Blood hemoglobin measurement (mass/volume)on 01-05-2022 Hemoglobin (Bld) [Mass/Vol] 11.2 g/dL 13.0-16.5 [facility] Work Phone: Blood platelet mean volumeon 01-05-2022 Platelet mean volume (Bld) [Entitic vol] 10.3 fL 6.2-12.0 [facility] Work Phone: Determination of erythrocyte mean corpuscular volume (MCV)on 01-05-2022 MCV (RBC) [Entitic vol] 84.8 fL 80-94 [facility] Work Phone: Hematocrit Auto (Bld) [Volum e fraction]on 01-05-2022 Hematocrit (Bld) [Volume fraction] 36.2 % 40-54 [facility] Work Phone: Laboratory - Chemistry and C hemistry - challengeon 01-05-2022 CO2 [Moles/Vol] 28.0 mmol/L 21.0-32.0 [facility] Work Phone: Urea nitrogen/Creatinine [Mass ratio] 20.0 mg/mg 10-20 [facility] Work Phone: [phone] Laboratory - Hematology and Cell countson 01-05-2022 Erythrocyte distribution width (RBC) [Entitic vol] 51.8 fL 35.1-43.9 [facility] Work Phone: Erythrocyte distribution width (RBC) [Ratio] 16.8 % 11.6-14.6 [facility] Work Phone: MCH (RBC) [Entitic mass] 26.2 pg 27.0-32.0 [facility] Work Phone: MCHC Auto (RBC) [Mass/Vol]on 01-05-2022 MCHC (RBC) [Mass/Vol] 30.9 g/dL 32-36 [facility] Work Phone: No Panel Informationon 01-05 Estimated GFR (MDRD) Amer 133 mL/min >60 [facility] Work Phone: Comment on above: GFR Calc Estimated GFR (MDRD) Non-Af Amer 110 mL/min >60 [facility] Work Phone: Comment on above: Non- GFR Calc Platelets bldon 01-05-2022 Platelets (Bld) [#/Vol] 373 10*3/uL 150-450 [facility] Work Phone: Serum or plasma calcium oral urement (mass/volume)on 01-05-2022 Calcium [Mass/Vol] 8.8 mg/dL 8.5-10.1 [facility] Work Phone: Serum or plasma creatinine m easurement (mass/volume)on 01-05-2022 Creatinine [Mass/Vol] 0.75 mg/dL 0.70-1.30 [facility] Work Phone: Comment on above: The validity of the calculated GFR & GFRAA in patients over 70 years has not been determined. Clinical correlation is essential. Serum or plasma urea nitroge n measurement (mass/volume)on 01-05-2022 Urea nitrogen [Mass/Vol] 15 mg/dL 7-18 [facility] Work Phone: Thin prep Papanicolaou smear with manual screeningon 01-05-2022 Thin prep Papanicolaou smear with manual screening 8 5-15 [facility] Work Phone: Laboratory - Coagulationon 0 12-30-2021 INR Coag (Bld) [Relative time] 2.0 {INR} [facility] Work Phone: Comment on above: Critical Value > 4.0 Whole blood prothrombin time on 12-30-2021 PT Coag (Bld) [Time] 23.7 s 11.7-14.9 [facility] Work Phone: Basophil percentageon 2021 Chloride [Moles/Vol] 106 mmol/L 98-107 [facility] Work Phone: Glucose [Mass/Vol] 91 mg/dL 74-106 [facility] Work Phone: Potassium [Moles/Vol] 3.4 mmol/L 3.5-5.1 [facility] Work Phone: Sodium [Moles/Vol] 141 mmol/L 136-145 [facility] Work Phone: WBC (Bld) [#/Vol] 10.2 10*3/uL 4.4-11.0 [facility] Work Phone: Blood erythrocytes count (nu mber/volume)on 12-28-2021 RBC (Bld) [#/Vol] 4.22 10*6/uL 4.6-6.2 [facility] Work Phone: Blood hemoglobin measurement (mass/volume)on 12-28-2021 Hemoglobin (Bld) [Mass/Vol] 11.2 g/dL 13.0-16.5 [facility] Work Phone: Blood platelet mean volumeon 12-28-2021 Platelet mean volume (Bld) [Entitic vol] 10.1 fL 6.2-12.0 [facility] Work Phone: Determination of erythrocyte mean corpuscular volume (MCV)on 12-28-2021 MCV (RBC) [Entitic vol] 82.7 fL 80-94 [facility] Work Phone: Hematocrit Auto (Bld) [Volum e fraction]on 12-28-2021 Hematocrit (Bld) [Volume fraction] 34.9 % 40-54 [facility] Work Phone: Laboratory - Chemistry and C hemistry - challengeon 12-28-2021 CO2 [Moles/Vol] 30.0 mmol/L 21.0-32.0 [facility] Work Phone: Urea nitrogen/Creatinine [Mass ratio] 33.7 mg/mg 10-20 [facility] Work Phone: Laboratory - Hematology and Cell countson 12-28-2021 Erythrocyte distribution width (RBC) [Entitic vol] 49.1 fL 35.1-43.9 [facility] Work Phone: Erythrocyte distribution width (RBC) [Ratio] 16.5 % 11.6-14.6 [facility] Work Phone: MCH (RBC) [Entitic mass] 26.5 pg 27.0-32.0 [facility] Work Phone: MCHC Auto (RBC) [Mass/Vol]on 12-28-2021 MCHC (RBC) [Mass/Vol] 32.1 g/dL 32-36 [facility] Work Phone: No Panel Informationon 12-28 Estimated GFR (MDRD) Amer 174 mL/min >60 [facility] Work Phone: Comment on above: GFR Calc Estimated GFR (MDRD) Non-Af Amer 143 mL/min >60 [facility] Work Phone: Comment on above: Non- GFR Calc Platelets bldon 12-28-2021 Platelets (Bld) [#/Vol] 339 10*3/uL 150-450 [facility] Work Phone: Serum or plasma calcium oral urement (mass/volume)on 12-28-2021 Calcium [Mass/Vol] 8.6 mg/dL 8.5-10.1 [facility] Work Phone: Serum or plasma creatinine m easurement (mass/volume)on 12-28-2021 Creatinine [Mass/Vol] 0.59 mg/dL 0.70-1.30 [facility] Work Phone: Comment on above: The validity of the calculated GFR & GFRAA in patients over 70 years has not been determined. Clinical correlation is essential. Serum or plasma urea nitroge n measurement (mass/volume)on 12-28-2021 Urea nitrogen [Mass/Vol] 20 mg/dL 7-18 [facility] Work Phone: Thin prep Papanicolaou smear with manual screeningon 12-28-2021 Thin prep Papanicolaou smear with manual screening 5 5-15 [facility] Work Phone: CULTURE BLOODon 12-27-2021 Microscopic examination of blood, culture CULTURE BLOOD --> Status: F No growth at 5 days. Normal [facility] Comment on above: Performed By: #### C /BLD #### [employer] [address] [place] [address] Laboratory - Coagulationon 0 12-26-2021 INR Coag (Bld) [Relative time] 1.7 {INR} [facility] Work Phone: Comment on above: Critical Value > 4.0 Whole blood prothrombin time on 12-26-2021 PT Coag (Bld) [Time] 20.8 s 11.7-14.9 [facility] Work Phone: Basic Metabolic Panelon 12-05 Calcium [Mass/Vol] 8.8 mg/dL Normal 8.4-10.4 [facility] Comment on above: Performed By: #### C RP2, ESR, HEMDF, BMP3 ####[address] [place] [address] Anion gap [Moles/Vol] 6 mmol/L Normal 3-13 [facility] Comment on above: Performed By: #### C RP2, ESR, HEMDF, BMP3 ####[address] [place] [address] CO2 [Moles/Vol] 27 mmol/L Normal 22-30 [facility] Comment on above: Performed By: #### C RP2, ESR, HEMDF, BMP3 ####[address] [place] [address] Glucose [Mass/Vol] 100 mg/dL Normal 70-100 [facility] Comment on above: Performed By: #### C RP2, ESR, HEMDF, BMP3 ####[address] [place] [address] Urea nitrogen [Mass/Vol] 18 mg/dL High 7-17 [facility] Comment on above: Performed By: #### C RP2, ESR, HEMDF, BMP3 ####[address] [address] Creatinine [Mass/Vol] 0.73 mg/dL Normal 0.52-1.25 [facility] Comment on above: Performed By: #### C RP2, ESR, HEMDF, BMP3 ####[address] [place] [address] eGFR OTHER > 90.0 Normal >60 [facility] Comment on above: Result Comment: KDIG O [...] By: #### C RP2, ESR, HEMDF, BMP3 ####[address], [place] GFR/1.73 sq M.predicted among blacks MDRD (S/P/Bld) [Vol rate/Area] mL/min/{1.73_m2} Normal >60 [facility] Comment on above: Performed By: #### C RP2, ESR, HEMDF, BMP3 ####[address] [place], [place] Potassium [Moles/Vol] 3.7 mmol/L Normal 3.5-5.1 [facility] Comment on above: Performed By: #### C RP2, ESR, HEMDF, BMP3 ####[address] [place], [place] Chloride [Moles/Vol] 106 mmol/L Normal 98-107 [facility] Comment on above: Performed By: #### C RP2, ESR, HEMDF, BMP3 ####[address] [place], [place] Sodium [Moles/Vol] 139 mmol/L Normal 135-145 [facility] Comment on above: Performed By: #### C RP2, ESR, HEMDF, BMP3 ####[address] [place], [place] Anion gap [Moles/Vol] 6 mmol/L 3 - 13 mmol/L [facility] Calcium [Mass/Vol] 8.8 mg/dL 8.4 - 10. 4 mg/dL [facility] Chloride [Moles/Vol] 106 mmol/L 98 - 10 7 mmol/L [facility] CO2 [Moles/Vol] 27 mmol/L 22 - 30 mmol/L [facility] Creatinine [Mass/Vol] 0.73 mg/dL 0.52 - 1.25 mg/dL [facility] eGFR mL/min 60 - P INF mL/min [facility] EGFR IF NonAfrican Bel[place]an mL/min 60 - PINF mL/min [facility] Comment on above: KDIGO guidelines pro vide [...] 2021 Basophil percentage 25-50 SEEN /hpf 0-5 [facility] Work Phone: Chloride [Moles/Vol] 106 mmol/L 98-107 [facility] Work Phone: [phone] Glucose [Mass/Vol] 93 mg/dL 74-106 [facility] Work Phone: Potassium [Moles/Vol] 3.5 mmol/L 3.5-5.1 [facility] Work Phone: Sodium [Moles/Vol] 140 mmol/L 136-145 [facility] Work Phone: WBC (Bld) [#/Vol] 9.6 10*3/uL 4.4-11.0 [facility] Work Phone: Bilirubin Test strip Ql (U)o n 12-22-2021 Bilirubin Ql (U) Negative Negative [facility] Work Phone: Blood erythrocytes count (nu mber/volume)on 12-22-2021 RBC (Bld) [#/Vol] 4.34 10*6/uL 4.6-6.2 [facility] Work Phone: Blood hemoglobin measurement (mass/volume)on 12-22-2021 Hemoglobin (Bld) [Mass/Vol] 11.5 g/dL 13.0-16.5 [facility] Work Phone: Blood platelet mean volumeon 12-22-2021 Platelet mean volume (Bld) [Entitic vol] 10.8 fL 6.2-12.0 [facility] Work Phone: C-Reactive Proteinon 022 CRP [Mass/Vol] 27.2 mg/L High 0.0-9.9 [facility] Comment on above: Result Comment: . Performed By: #### C RP2, ESR, HEMDF, BMP3 ####[employer] [id number] [place] [address] CRP [Mass/Vol] 27.2 mg/L High 0 - 9.9 mg/L [facility] Comment on above: . CBC with Auto [...] - 10.7 10*3/uL [facility] Test Performed by [address] [facility] COVID-19, Flu A/B, and RSV C [facility] 12-22-2021 Influenza A by PCR Not detected [facility] A Influenza B by PCR Not detected [facility] A RSV PCR Not Detected. Expected Result: Not Detected _ Method: Real-time, RT-PCR This assay was developed by [employer] and distributed under an Emergency Use Authorization (EUA) granted by the FDA for the qualitative detection of nucleic acids from SARS-CoV-2, Influenza A, Influenza B, and Respiratory Syncytial Virus. Provider and patient fact sheets can be found at https://www.fda.gov/media /516176/download and https://www.fda.gov/media /885838/download. [facility] SARS-CoV-2 (COVID-19) RNA MEGAN+probe Ql (Unsp spec) Not detected [facility] Test Performed by [address] LAB [facility] CR Foot Complete 3+ Views [place] 12-22-2021 CR Foot Complete 3+ Views Left Patient Name: ANDREW SIFUENTES Diagnostic Radiology ACCESSION EXAM DATE/TIME PROCEDURE ORDERING PROVIDER [id number] 12/22/2021 00:09 EDT CR Foot Complete 3+ SANDY HIDALGO, HENRY Godoy Views Left CPT code 82248 Reason For Exam (CR Foot Complete 3+ [...] Transcribed Date and Time: 12/22/2021 0:21 Normal [facility] Calcium oxalate crystals det ection in urine sediment by light microscopyon 12-22-2021 Calcium oxalate crystals LM Ql (Urine sed) 1+ /hpf [facility] Work Phone: Determination of erythrocyte mean corpuscular volume (MCV)on 12-22-2021 MCV (RBC) [Entitic vol] 84.3 fL 80-94 [facility] Work Phone: ED Provider Noteon 2 ED Provider Note Emergency Department Encounter [facility] EMERGENCY DEPT Patient: Andrew Sifuentes : 1950 [...] leg for a while. According to EMS [facility] staff completed x-ray of the lower extremity and there was concern for osteomyelitis hence transferring patient to the hospital. Patient states this time the wounds on the left lower extremity for extended period of time. He denies fevers or chills. Patient states [facility] staff have been taking care of the wound for him. Focused exam: Blood pressure 108/67, pulse 77, temperature 97.9 ?F (36.6 ?C), temperature source Oral, resp. rate 16, height 5' 9" (1.753 m), weight 79.4 kg (175 lb), SpO2 96 %. [id number] in no acute distress. Alert and oriented [...] [employer] Sharon Olivia MD 12/22/21 0305 Normal [facility] ED Provider Note [facility] EM[facility]Y DE[facility] EMERGENCY DEPARTMENT ENCOUNTER Pt Name: Andrew Sifuentes Birthdate 1950 Date of evaluation: 12/21/2021 Provider: SANIA Lou CHIEF COMPLAINT Chief Complaint Patient presents with Osteomyelitis Patient from [facility], facility did xrays on left lower leg and and have concerns for possible osteomyelitis A&Ox2 to self and place, stated year 2022 [facility] HISTORY OF PRESENT ILLNESS (Location/Symptom, Timing/Onset, Context/Setting, Quality,Duration, Modifying Factors, Severity) Note limiting factors. 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 Tenderness: (more content not included)... Normal [facility] Hematocrit Auto (Bld) [Volum e fraction]on 12-22-2021 Hematocrit (Bld) [Volume fraction] 36.6 % 40-54 [facility] Work Phone: Hemogram w/ Autodiffon 12-22 Abs Baso Cnt 0.1 10*3/uL Normal 0.0-0.2 [facility] Comment on above: Performed By: #### C RP2, ESR, HEMDF, BMP3 ####[facility] [id number] [place] [address] Abs Neutrophile Cnt 5.9 10*3/uL Normal 1.8-7.0 [facility] Comment on above: Performed By: #### C RP2, ESR, HEMDF, BMP3 ####[facility] [id number] [place] [address] Basophils/100 WBC (Bld) 0.7 % Normal 0.0-2.0 [facility] Comment on above: Performed By: #### C RP2, ESR, HEMDF, BMP3 ####[address] [place] [address] Eosinophils (Bld) [#/Vol] 0.2 10*3/uL Normal 0.0-0.5 [facility] Comment on above: Performed By: #### C RP2, ESR, HEMDF, BMP3 ####[facility] [id number] [place] [address] Eosinophils/100 WBC (Bld) 2.3 % Normal 1.0-6.0 [facility] Comment on above: Performed By: #### C RP2, ESR, HEMDF, BMP3 ####[facility] [id number] [place] [address] Erythrocyte distribution width (RBC) [Ratio] 17.5 % High 11.5-14.5 [facility] Comment on above: Performed By: #### C RP2, ESR, HEMDF, BMP3 ####[address] Granulocytes/100 WBC (Bld) 57.8 % Normal 40.0-80.0 [facility] Comment on above: Performed By: #### C RP2, ESR, HEMDF, BMP3 ####[address] Hematocrit (Bld) [Volume fraction] 33.3 % Low 40.0-52.0 [facility] Comment on above: Performed By: #### C RP2, ESR, HEMDF, BMP3 ####[address] Hemoglobin (Bld) [Mass/Vol] 11.0 g/dL Low 13.0-18.0 [facility] Comment on above: Performed By: #### C RP2, ESR, HEMDF, BMP3 ####[address] Lymphocytes (Bld) [#/Vol] 3.3 10*3/uL Normal 1.0-4.3 [facility] Comment on above: Performed By: #### C RP2, ESR, HEMDF, BMP3 ####[address] Lymphocytes/100 WBC (Bld) 33.0 % Normal 20.0-40.0 [facility] Comment on above: Performed By: #### C RP2, ESR, HEMDF, BMP3 ####[address] MCH (RBC) [Entitic mass] 26.5 pg Normal 26.0-34.0 [facility] Comment on above: Performed By: #### C RP2, ESR, HEMDF, BMP3 ####[address] MCHC 33.1 % Normal 32.0-36.0 [facility] Comment on above: Performed By: #### C RP2, ESR, HEMDF, BMP3 ####[address] [place], [place] MCV (RBC) [Entitic vol] 80.2 fL Normal 80.0-98.0 [facility] Comment on above: Performed By: #### C RP2, ESR, HEMDF, BMP3 ####[address] [place], [place] Monocytes (Bld) [#/Vol] 0.6 10*3/uL Normal 0.0-0.8 [facility] Comment on above: Performed By: #### C RP2, ESR, HEMDF, BMP3 ####[address] [place], [place] Monocytes/100 WBC (Bld) 6.2 % Normal 2.0-10.0 [facility] Comment on above: Performed By: #### C RP2, ESR, HEMDF, BMP3 ####[address] Platelet mean volume (Bld) [Entitic vol] 8.0 fL Normal 7.4-12.4 [facility] Comment on above: Result Comment: MPV is a calculated measurement using platelet volume ratio. Performed By: #### C RP2, ESR, HEMDF, BMP3 ####[address] [place], [place] Platelets (Bld) [#/Vol] 368 10*3/uL Normal 140-440 [facility] Comment on above: Performed By: #### C RP2, ESR, HEMDF, BMP3 ####[address] [place], [place] RBC (Bld) [#/Vol] 4.15 10*6/uL Low 4.40-5.90 [facility] Comment on above: Performed By: #### C RP2, ESR, HEMDF, BMP3 ####[address] [place], [place] WBC (Bld) [#/Vol] 10.1 10*3/uL Normal 3.6-10.7 [facility] Comment on above: Performed By: #### C RP2, ESR, HEMDF, BMP3 ####[facility] [id number] [place] [address] Ketones Test strip Ql (U)on 12-22-2021 Ketones Ql (U) Negative Negative [facility] Work Phone: Laboratory - Chemistry and C hemistry - challengeon 12-22-2021 CO2 [Moles/Vol] 27.0 mmol/L 21.0-32.0 [facility] Work Phone: Urea nitrogen/Creatinine [Mass ratio] 22.5 mg/mg 10-20 [facility] Work Phone: Laboratory - Hematology and Cell countson 12-22-2021 Erythrocyte distribution width (RBC) [Entitic vol] 49.1 fL 35.1-43.9 [facility] Work Phone: Erythrocyte distribution width (RBC) [Ratio] 16.1 % 11.6-14.6 [facility] Work Phone: MCH (RBC) [Entitic mass] 26.5 pg 27.0-32.0 [facility] Work Phone: MCHC Auto (RBC) [Mass/Vol]on 12-22-2021 MCHC (RBC) [Mass/Vol] 31.4 g/dL 32-36 [facility] Work Phone: Mucus LM Ql (Urine sed)on Mucus Ql (Urine sed) 0 SEEN /hpf [facility] Work Phone: Nitrite Test strip Ql (U)on 12-22-2021 Nitrite Ql (U) Positive Negative [facility] Work Phone: No Panel Informationon 12-22 Estimated GFR (MDRD) Amer 152 mL/min >60 [facility] Work Phone: Comment on above: GFR Calc Estimated GFR (MDRD) Non-Af Amer 125 mL/min >60 [facility] Work Phone: Comment on above: Non- GFR Calc Interpretation and review of laboratory results Abnormal [facility], [address] [place] [address] [facility] Platelets bldon 12-22-2021 Platelets (Bld) [#/Vol] 317 10*3/uL 150-450 [facility] Work Phone: Protein Test strip Ql (U)on 12-22-2021 Protein Ql (U) 30 mg/dl Negative [facility] Work Phone: SARS-CoV-2, Flu A/B and RSVo n 12-22-2021 SARS-CoV-2 (COVID-19) RNA MEGAN+probe Ql (Unsp spec) SARS-CoV-2 --> Status: F Not Detected. Flu A PCR --> Status: F Not Detected. Flu B PCR --> Status: F Not Detected. RSV PCR --> Status: F Not Detected. Expected Result: Not Detected _ Method: Real-time, RT-PCR This assay was developed by [employer] and distributed under an Emergency Use Authorization (EUA) granted by the FDA for the qualitative detection of nucleic acids from SARS-CoV-2, Influenza A, Influenza B, and Respiratory Syncytial Virus. Provider and patient fact sheets can be found at https://www.fda.gov/media /735313/download and https://www.fda.gov/media /063020/download. Expected Result: Not Detected _ Method: Real-time, RT-PCR This assay was developed by [employer] and distributed under an Emergency Use Authorization (EUA) granted by the FDA for the qualitative detection of nucleic acids from SARS-CoV-2, Influenza A, Influenza B, and Respiratory Syncytial Virus. Provider and patient fact sheets can be found at https://www.fda.gov/media /902029/download and https://www.fda.gov/media /548549/download. Normal [facility] Comment on above: Performed By: #### C VFLR ####[facility] [place] , [address] Sed Rateon 12-22-2021 Sed Rate 48 mm/h High 0-10 [facility] Comment on above: Performed By: #### C RP2, ESR, HEMDF, BMP3 ####[facility] [place] [address] Sedimentation Rateon 022 Interpretation and review of laboratory results Abnormal [facility] Sed Rate 48 mm/h High 0 - 10 mm/h [facility] Test Performed by [facility], [address] [place] [address] [facility] Serum or plasma calcium oral urement (mass/volume)on 12-22-2021 Calcium [Mass/Vol] 8.6 mg/dL 8.5-10.1 [facility] Work Phone: Serum or plasma creatinine m easurement (mass/volume)on 12-22-2021 Creatinine [Mass/Vol] 0.67 mg/dL 0.70-1.30 [facility] Work Phone: Comment on above: The validity of the calculated GFR & GFRAA in patients over 70 years has not been determined. Clinical correlation is essential. Serum or plasma urea nitroge n measurement (mass/volume)on 12-22-2021 Urea nitrogen [Mass/Vol] 15 mg/dL 11-21 [facility] Work Phone: Squamous epithelial cells de tection in urine sediment by light microscopyon 12-22-2021 Epithelial cells.squamous LM Ql (Urine sed) 0-5 SEEN /hpf 0-5 [facility] Work Phone: Thin prep Papanicolaou smear with manual screeningon 12-22-2021 Thin prep Papanicolaou smear with manual screening 7 5-15 [facility] Work Phone: Urine blood detectionon 12-05 RBC Ql (U) 150 /ul Negative [facility] Work Phone: RBC Ql (U) 10-25 SEEN /hpf 0-5 [facility] Work Phone: Urine clarityon 12-22-2021 Clarity (U) Sl. Cloudy Clear [facility] Work Phone: Urine color determinationon 12-22-2021 Color (U) Yellow Yellow [facility] Work Phone: Urine glucose detectionon Glucose Ql (U) Normal mg/dl Normal [facility] Work Phone: Urine leukocyte esterase det ection by dipstickon 12-22-2021 Leukocyte esterase Test strip Ql (U) 500 /ul Negative [facility] Work Phone: Urine pHon 12-22-2021 pH (U) 6.0 [pH] 5.0 - 8.0 [facility] Work Phone: Urine sediment bacteria coun t by microscopy (number/high power field)on 12-22-2021 Bacteria LM.HPF (Urine sed) [#/Area] 2 /[HPF] None Seen [facility] Work Phone: Urine specific gravity measu rementon 12-22-2021 Specific gravity (U) [Rel density] 1.020 1.002-1.030 [facility] Work Phone: Urobilinogen Auto test strip Ql (U)on 12-22-2021 Urobilinogen Ql (U) Normal mg/dl Normal [facility] Work Phone: XR FOOT LEFT (MIN 3 VIEWS)on 12-22-2021 [facility]: [id number]iology ACCESSION EXAM DATE/TIME PROCEDURE ORDERING PROVIDER [id number] 12/22/2021 00:09 EDT CR Foot Complete 3+ SANDY HIDALGO, JOAN Views Left CPT code 79796 Reason For Exam (CR Foot Complete 3+ [...] JEFFREY Transcribed Date and Time: 12/22/2021 0:21 [facility] Albert Solano MD - 12/22/2021 Patient Name: ANDREW SIFUENTES Diagnostic Radiology ACCESSION EXAM DATE/TIME PROCEDURE ORDERING PROVIDER [id number] 12/22/2021 00:09 EDT CR Foot Complete 3+ SANDY HIDALGO, JOAN Views Left CPT code 18169 Reason For Exam (CR Foot Complete 3+ [...] JEFFREY Transcribed Date and Time: 12/22/2021 0:21 [facility]: Radiology Study observation (narrative) [facility] Work Phone: XR FOOT LEFT (MIN 3 VIEWS)Or dered By: Albert Solano on 12-22-2021 [facility] Work Phone: Basophil percentageon 2021 Chloride [Moles/Vol] 103 mmol/L 98-107 [facility] Work Phone: Glucose [Mass/Vol] 92 mg/dL 74-106 [facility] Work Phone: Potassium [Moles/Vol] 3.5 mmol/L 3.5-5.1 [facility] Work Phone: Sodium [Moles/Vol] 138 mmol/L 136-145 [facility] Work Phone: WBC (Bld) [#/Vol] 11.2 10*3/uL 4.4-11.0 [facility] Work Phone: Blood erythrocytes count (nu mber/volume)on 12-19-2021 RBC (Bld) [#/Vol] 4.50 10*6/uL 4.6-6.2 [facility] Work Phone: Blood hemoglobin measurement (mass/volume)on 12-19-2021 Hemoglobin (Bld) [Mass/Vol] 12.2 g/dL 13.0-16.5 [facility] Work Phone: Blood platelet mean volumeon 12-19-2021 Platelet mean volume (Bld) [Entitic vol] 11.3 fL 6.2-12.0 [facility] Work Phone: Determination of erythrocyte mean corpuscular volume (MCV)on 12-19-2021 MCV (RBC) [Entitic vol] 85.6 fL 80-94 [facility] Work Phone: Hematocrit Auto (Bld) [Volum e fraction]on 12-19-2021 Hematocrit (Bld) [Volume fraction] 38.5 % 40-54 [facility] Work Phone: Laboratory - Chemistry and C hemistry - challengeon 12-19-2021 CO2 [Moles/Vol] 30.0 mmol/L 21.0-32.0 [facility] Work Phone: Urea nitrogen/Creatinine [Mass ratio] 27.1 mg/mg 10-20 [facility] Work Phone: Laboratory - Hematology and Cell countson 12-19-2021 Erythrocyte distribution width (RBC) [Entitic vol] 50.5 fL 35.1-43.9 [facility] Work Phone: Erythrocyte distribution width (RBC) [Ratio] 16.0 % 11.6-14.6 [facility] Work Phone: MCH (RBC) [Entitic mass] 27.1 pg 27.0-32.0 [facility] Work Phone: MCHC Auto (RBC) [Mass/Vol]on 12-19-2021 MCHC (RBC) [Mass/Vol] 31.7 g/dL 32-36 [facility] Work Phone: No Panel Informationon 12-19 Estimated GFR (MDRD) Amer 153 mL/min >60 [facility] Work Phone: Comment on above: GFR Calc Estimated GFR (MDRD) Non-Af Amer 126 mL/min >60 [facility] Work Phone: Comment on above: Non- GFR Calc Platelets bldon 12-19-2021 Platelets (Bld) [#/Vol] 363 10*3/uL 150-450 [facility] Work Phone: Serum or plasma calcium oral urement (mass/volume)on 12-19-2021 Calcium [Mass/Vol] 9.5 mg/dL 8.5-10.1 [facility] Work Phone: Serum or plasma creatinine m easurement (mass/volume)on 12-19-2021 Creatinine [Mass/Vol] 0.66 mg/dL 0.70-1.30 [facility] Work Phone: Comment on above: The validity of the calculated GFR & GFRAA in patients over 70 years has not been determined. Clinical correlation is essential. Serum or plasma urea nitroge n measurement (mass/volume)on 12-19-2021 Urea nitrogen [Mass/Vol] 18 mg/dL 7-18 [facility] Work Phone: Thin prep Papanicolaou smear with manual screeningon 12-19-2021 Thin prep Papanicolaou smear with manual screening 5 5-15 [facility] Work Phone: Laboratory - Coagulationon 0 12-12-2021 INR Coag (Bld) [Relative time] 2.0 {INR} [facility] Work Phone: Comment on above: Critical Value > 4.0 Whole blood prothrombin time on 12-12-2021 PT Coag (Bld) [Time] 23.9 s 11.7-14.9 [facility] Work Phone: ANES POSTPROC EVALon 022 ANES POSTPROC EVAL Normal [facility] - Coagulationon 0 12-08-2021 INR Coag (Bld) [Relative time] 1.8 {INR} [facility] Work Phone: Comment on above: Critical Value > 4.0 Whole blood prothrombin time on 12-08-2021 PT Coag (Bld) [Time] 21.0 s 11.7-14.9 [facility] Work Phone: Absolute lymphocyte counton 12-05-2021 Lymphocytes Auto (Unsp spec) [#/Vol] 2.97 10*3/uL 0.83-4.51 [facility] Work Phone: Basophil percentageon 2021 Basophils/100 WBC (Bld) 0.6 % 0-1 [facility] Work Phone: Chloride [Moles/Vol] 106 mmol/L 98-107 [facility] Work Phone: Eosinophils/100 WBC (Bld) 2.3 % 0-5 [facility] Work Phone: Glucose [Mass/Vol] 107 mg/dL 74-106 [facility] Work Phone: Comment on above: Fasting Glucose resu lt from 100 to 125 mg/dL suggests IMPAIRED HOMEOSTASIS per A.D.A. criteria. Neutrophils (Bld) [#/Vol] 5.6 10*3/uL 2.0-7.7 [facility] Work Phone: Neutrophils/100 WBC (Bld) 60.2 % 47-70 [facility] Work Phone: Potassium [Moles/Vol] 3.4 mmol/L 3.5-5.1 [facility] Work Phone: Sodium [Moles/Vol] 139 mmol/L 136-145 [facility] Work Phone: WBC (Bld) [#/Vol] 9.3 10*3/uL 4.4-11.0 [facility] Work Phone: Blood erythrocytes count (nu mber/volume)on 12-05-2021 RBC (Bld) [#/Vol] 4.49 10*6/uL 4.6-6.2 [facility]: Blood hemoglobin measurement (mass/volume)on 12-05-2021 Hemoglobin (Bld) [Mass/Vol] 12.1 g/dL 13.0-16.5 [facility] Work Phone: Blood lymphocytes/100 leukoc yteson 12-05-2021 Lymphocytes/100 WBC (Bld) 32.0 % 19-41 [facility] Work Phone: Blood monocytes/100 leukocyt eson 12-05-2021 Monocytes/100 WBC (Bld) 4.7 % 0-10 [facility] Work Phone: Blood platelet mean volumeon 12-05-2021 Platelet mean volume (Bld) [Entitic vol] 10.8 fL 6.2-12.0 [facility] Work Phone: Determination of erythrocyte mean corpuscular volume (MCV)on 08-01-2022 MCV (RBC) [Entitic vol] 84.9 fL 80-94 [facility] Work Phone: Hematocrit Auto (Bld) [Volum e fraction]on 12-05-2021 Hematocrit (Bld) [Volume fraction] 38.1 % 40-54 [facility] Work Phone: INR in Blood by Coagulation assayon 12-05-2021 INR Coag (Bld) [Relative time] 1.8 {INR} [facility] Work Phone: Laboratory - Chemistry and C hemistry - challengeon 12-05-2021 CO2 [Moles/Vol] 29.0 mmol/L 21.0-32.0 [facility] Work Phone: Urea nitrogen/Creatinine [Mass ratio] 25.4 mg/mg 10-20 [facility] Work Phone: Laboratory - Coagulationon 0 12-05-2021 PT Coag (PPP) [Time] 20.5 s 11.7-14.9 [facility] Work Phone: Laboratory - Hematology and Cell countson 12-05-2021 Erythrocyte distribution width (RBC) [Entitic vol] 48.5 fL 35.1-43.9 [facility] Work Phone: Erythrocyte distribution width (RBC) [Ratio] 15.7 % 11.6-14.6 [facility] Work Phone: Immature granulocytes/100 WBC (Bld) 0.200 % 0.0-0.9 [facility] Work Phone: Comment on above: IG% - Immature Granu locytes (promyelocytes, myelocytes and metamyelocytes) > 1% indicates that a LEFT SHIFT is Present. MCH (RBC) [Entitic mass] 26.9 pg 27.0-32.0 [facility] Work Phone: Nucleated RBC/100 WBC (Bld) [Ratio] 0 % 0-5 [facility] Work Phone: MCHC Auto (RBC) [Mass/Vol]on 12-05-2021 MCHC (RBC) [Mass/Vol] 31.8 g/dL 32-36 [facility] Work Phone: No Panel Informationon 12-05 Estimated GFR (MDRD) Amer 133 mL/min >60 [facility] Work Phone: Comment on above: GFR Calc Estimated GFR (MDRD) Non-Af Amer 110 mL/min >60 [facility] Work Phone: Comment on above: Non- GFR Calc Platelets bldon 12-05-2021 Platelets (Bld) [#/Vol] 363 10*3/uL 150-450 [facility] Work Phone: Serum or plasma calcium oral urement (mass/volume)on 12-05-2021 Calcium [Mass/Vol] 9.4 mg/dL 8.5-10.1 [facility] Work Phone: Serum or plasma creatinine m easurement (mass/volume)on 12-05-2021 Creatinine [Mass/Vol] 0.75 mg/dL 0.70-1.30 [facility] Work Phone: Comment on above: The validity of the calculated GFR & GFRAA in patients over 70 years has not been determined. Clinical correlation is essential. Serum or plasma urea nitroge n measurement (mass/volume)on 12-05-2021 Urea nitrogen [Mass/Vol] 19 mg/dL 7-18 [facility] Work Phone: Thin prep Papanicolaou smear with manual screeningon 12-05-2021 Thin prep Papanicolaou smear with manual screening 4 5-15 [facility] Work Phone: Basophil percentageon 2021 Basophil percentage 0 SEEN /hpf 0-5 [facility] Work Phone: Chloride [Moles/Vol] 104 mmol/L 98-107 [facility] Work Phone: Glucose [Mass/Vol] 90 mg/dL 74-106 [facility] Work Phone: Potassium [Moles/Vol] 3.7 mmol/L 3.5-5.1 [facility] Work Phone: Comment on above: Slight Hemolysis, Re sult may be falsely increased. Sodium [Moles/Vol] 138 mmol/L 136-145 [facility] Work Phone: WBC (Bld) [#/Vol] 10.7 10*3/uL 4.4-11.0 [facility] Work Phone: Bilirubin Test strip Ql (U)o n 12-01-2021 Bilirubin Ql (U) Negative Negative [facility] Work Phone: Blood erythrocytes count (nu mber/volume)on 12-01-2021 RBC (Bld) [#/Vol] 4.33 10*6/uL 4.6-6.2 [facility] Work Phone: Blood hemoglobin measurement (mass/volume)on 12-01-2021 Hemoglobin (Bld) [Mass/Vol] 11.6 g/dL 13.0-16.5 [facility] Work Phone: Blood platelet mean volumeon 12-01-2021 Platelet mean volume (Bld) [Entitic vol] 11.2 fL 6.2-12.0 [facility] Work Phone: Determination of erythrocyte mean corpuscular volume (MCV)on 12-01-2021 MCV (RBC) [Entitic vol] 85.2 fL 80-94 [facility] Work Phone: Hematocrit Auto (Bld) [Volum e fraction]on 12-01-2021 Hematocrit (Bld) [Volume fraction] 36.9 % 40-54 [facility] Work Phone: Ketones Test strip Ql (U)on 12-01-2021 Ketones Ql (U) Negative Negative [facility] Work Phone: Laboratory - Chemistry and C hemistry - challengeon 12-01-2021 CO2 [Moles/Vol] 27.0 mmol/L 21.0-32.0 [facility] Work Phone: Urea nitrogen/Creatinine [Mass ratio] 24.0 mg/mg 10-20 [facility] Work Phone: Laboratory - Coagulationon 0 12-01-2021 INR Coag (Bld) [Relative time] 1.6 {INR} [facility] Work Phone: Comment on above: Critical Value > 4.0 Laboratory - Hematology and Cell countson 12-01-2021 Erythrocyte distribution width (RBC) [Entitic vol] 47.9 fL 35.1-43.9 [facility] Work Phone: Erythrocyte distribution width (RBC) [Ratio] 15.5 % 11.6-14.6 [facility] Work Phone: MCH (RBC) [Entitic mass] 26.8 pg 27.0-32.0 [facility] Work Phone: MCHC Auto (RBC) [Mass/Vol]on 12-01-2021 MCHC (RBC) [Mass/Vol] 31.4 g/dL 32-36 [facility] Work Phone: Mucus LM Ql (Urine sed)on Mucus Ql (Urine sed) 0 SEEN /hpf [facility] Work Phone: Nitrite Test strip Ql (U)on 12-01-2021 Nitrite Ql (U) Negative Negative [facility] Work Phone: No Panel Informationon 12-01 Estimated GFR (MDRD) Amer 133 mL/min >60 [facility] Work Phone: Comment on above: GFR Calc Estimated GFR (MDRD) Non-Af Amer 110 mL/min >60 [facility] Work Phone: Comment on above: Non- GFR Calc Platelets bldon 12-01-2021 Platelets (Bld) [#/Vol] 336 10*3/uL 150-450 [facility] Work Phone: Protein Test strip Ql (U)on 12-01-2021 Protein Ql (U) 30 mg/dl Negative [facility] Work Phone: Serum or plasma calcium oral urement (mass/volume)on 12-01-2021 Calcium [Mass/Vol] 9.4 mg/dL 8.5-10.1 [facility] Work Phone: Serum or plasma creatinine m easurement (mass/volume)on 12-01-2021 Creatinine [Mass/Vol] 0.75 mg/dL 0.70-1.30 [facility] Work Phone: Comment on above: The validity of the calculated GFR & GFRAA in patients over 70 years has not been determined. Clinical correlation is essential. Serum or plasma urea nitroge n measurement (mass/volume)on 12-01-2021 Urea nitrogen [Mass/Vol] 18 mg/dL 7-18 [facility] Work Phone: Squamous epithelial cells de tection in urine sediment by light microscopyon 12-01-2021 Epithelial cells.squamous LM Ql (Urine sed) 0-5 SEEN /hpf 0-5 [facility] Work Phone: Thin prep Papanicolaou smear with manual screeningon 12-01-2021 Thin prep Papanicolaou smear with manual screening 7 5-15 [facility] Work Phone: Urine blood detectionon 11-05 RBC Ql (U) Negative Negative [facility] Work Phone: RBC Ql (U) 0 SEEN /hpf 0-5 [facility] Work Phone: Urine clarityon 12-01-2021 Clarity (U) Clear Clear [facility] Work Phone: Urine color determinationon 12-01-2021 Color (U) Yellow Yellow [facility] Work Phone: Urine glucose detectionon Glucose Ql (U) 50 mg/dl Normal [facility] Work Phone: Urine leukocyte esterase det ection by dipstickon 12-01-2021 Leukocyte esterase Test strip Ql (U) Negative Negative [facility] Work Phone: Urine pHon 12-01-2021 pH (U) 6.0 [pH] 5.0 - 8.0 [facility] Work Phone: Urine sediment bacteria coun t by microscopy (number/high power field)on 12-01-2021 Bacteria LM.HPF (Urine sed) [#/Area] 0 /[HPF] None Seen [facility] Work Phone: Urine sediment yeast count b y microscopy (number/high powered field)on 12-01-2021 Yeast LM.HPF (Urine sed) [#/Area] 2 /[HPF] None Seen [facility] Work Phone: Urine specific gravity measu rementon 12-01-2021 Specific gravity (U) [Rel density] 1.010 1.002-1.030 [facility] Work Phone: Urobilinogen Auto test strip Ql (U)on 12-01-2021 Urobilinogen Ql (U) Normal mg/dl Normal [facility] Work Phone: Whole blood prothrombin time on 12-01-2021 PT Coag (Bld) [Time] 19.8 s 11.7-14.9 [facility] Work Phone: Laboratory - Coagulationon 0 11-28-2021 INR Coag (Bld) [Relative time] 1.6 {INR} [facility] Work Phone: Comment on above: Critical Value > 4.0 Whole blood prothrombin time on 11-28-2021 PT Coag (Bld) [Time] 18.8 s 11.7-14.9 [facility] Work Phone: INR in Blood by Coagulation assayon 11-23-2021 INR Coag (Bld) [Relative time] 2.7 {INR} [facility] Work Phone: Laboratory - Coagulationon 0 11-23-2021 PT Coag (PPP) [Time] 28.0 s 11.7-14.9 [facility] Work Phone: Laboratory - Coagulationon 0 - INR Coag (Bld) [Relative time] 3.8 {INR} [facility] Work Phone: Comment on above: Critical Value > 4.0 Whole blood prothrombin time on 11-22-2021 PT Coag (Bld) [Time] 42.8 s 11.7-14.9 [facility] Work Phone: INR in Blood by Coagulation assayon 11-21-2021 INR Coag (Bld) [Relative time] 3.9 {INR} [facility] Work Phone: Laboratory - Coagulationon 0 11-21-2021 PT Coag (PPP) [Time] 37.7 s 11.7-14.9 [facility] Work Phone: Whole blood prothrombin time on 11-21-2021 PT Coag (Bld) [Time] 45.5 s 11.7-14.9 [facility] Work Phone: INR in Blood by Coagulation assayon 11-14-2021 INR Coag (Bld) [Relative time] 3.1 {INR} [facility] Work Phone: Laboratory - Coagulationon 0 11-14-2021 PT Coag (PPP) [Time] 31.4 s 11.7-14.9 [facility] Work Phone: Laboratory - Coagulationon 0 11-08-2021 INR Coag (Bld) [Relative time] 2.5 {INR} [facility] Work Phone: Comment on above: Critical Value > 4.0 Whole blood prothrombin time on 11-08-2021 PT Coag (Bld) [Time] 29.0 s 11.7-14.9 [facility] Work Phone: Basophil percentageon 2021 Chloride [Moles/Vol] 106 mmol/L 98-107 [facility] Work Phone: Glucose [Mass/Vol] 100 mg/dL 74-106 [facility] Work Phone: Comment on above: Fasting Glucose resu lt from 100 to 125 mg/dL suggests IMPAIRED HOMEOSTASIS per A.D.A. criteria. Potassium [Moles/Vol] 3.7 mmol/L 3.5-5.1 [facility] Work Phone: Sodium [Moles/Vol] 140 mmol/L 136-145 [facility] Work Phone: WBC (Bld) [#/Vol] 8.8 10*3/uL 4.4-11.0 [facility] Work Phone: Blood erythrocytes count (nu mber/volume)on 11-04-2021 RBC (Bld) [#/Vol] 4.05 10*6/uL 4.6-6.2 [facility]: Blood hemoglobin measurement (mass/volume)on 11-04-2021 Hemoglobin (Bld) [Mass/Vol] 11.1 g/dL 13.0-16.5 [facility] Work Phone: Blood platelet mean volumeon 11-04-2021 Platelet mean volume (Bld) [Entitic vol] 10.8 fL 6.2-12.0 [facility] Work Phone: Determination of erythrocyte mean corpuscular volume (MCV)on 11-04-2021 MCV (RBC) [Entitic vol] 86.9 fL 80-94 [facility] Work Phone: Hematocrit Auto (Bld) [Volum e fraction]on 11-04-2021 Hematocrit (Bld) [Volume fraction] 35.2 % 40-54 [facility] Work Phone: INR in Blood by Coagulation assayon 11-04-2021 INR Coag (Bld) [Relative time] 1.8 {INR} [facility] Work Phone: Laboratory - Chemistry and C hemistry - challengeon 11-04-2021 CO2 [Moles/Vol] 26.0 mmol/L 21.0-32.0 [facility] Work Phone: Urea nitrogen/Creatinine [Mass ratio] 18.3 mg/mg 10-20 [facility] Work Phone: Laboratory - Coagulationon 0 11-04-2021 PT Coag (PPP) [Time] 20.4 s 11.7-14.9 [facility] Work Phone: Laboratory - Hematology and Cell countson 11-04-2021 Erythrocyte distribution width (RBC) [Entitic vol] 48.1 fL 35.1-43.9 [facility] Work Phone: Erythrocyte distribution width (RBC) [Ratio] 15.0 % 11.6-14.6 [facility] Work Phone: MCH (RBC) [Entitic mass] 27.4 pg 27.0-32.0 [facility] Work Phone: MCHC Auto (RBC) [Mass/Vol]on 11-04-2021 MCHC (RBC) [Mass/Vol] 31.5 g/dL 32-36 [facility] Work Phone: No Panel Informationon 11-04 D-Dimer Quantitative (PE/DVT) 0.56 FEU/ug/m 0.27-0.49 [facility] Work Phone: Comment on above: D-Dimer ELEVATED (>0 .49): Additional studies and clinicalassessments are indicated to conclude diagnosis of:Deep Vein Thrombosis (DVT) or Pulmonary Embolism (PE) Estimated GFR (MDRD) Amer 155 mL/min >60 [facility] Work Phone: Comment on above: GFR Calc Estimated GFR (MDRD) Non-Af Amer 128 mL/min >60 [facility] Work Phone: Comment on above: Non- GFR Calc Troponin I High Sensitivity 11 pg/mL 3.0-78.0 [facility] Work Phone: Comment on above: Please Note: New Fadumo t Units and Gender Specific Reference Ranges. For more information see Policy Stat Procedure [place] High Sensitivity Troponin (TNIH) and attachments. Platelets bldon 11-04-2021 Platelets (Bld) [#/Vol] 364 10*3/uL 150-450 [facility] Work Phone: Serum or plasma C reactive p rotein measurement (mass/volume)on 11-04-2021 CRP [Mass/Vol] 31.90 mg/L 0.0-3.0 [facility] Work Phone: Comment on above: C-Reactive Protein ( CRP) provides useful information for thediagnosis, therapy and monitoring of inflammatory processesand associated diseases. For the evaluation of Relative Riskfor Cardiovascular Disease, a High Sensitivity CRP (HSCRP)should be ordered. Serum or plasma calcium oral urement (mass/volume)on 11-04-2021 Calcium [Mass/Vol] 9.1 mg/dL 8.5-10.1 [facility] Work Phone: Serum or plasma creatinine m easurement (mass/volume)on 11-04-2021 Creatinine [Mass/Vol] 0.66 mg/dL 0.70-1.30 [facility] Work Phone: Comment on above: The validity of the calculated GFR & GFRAA in patients over 70 years has not been determined. Clinical correlation is essential. Serum or plasma urea nitroge n measurement (mass/volume)on 11-04-2021 Urea nitrogen [Mass/Vol] 12 mg/dL 7-18 [facility] Work Phone: Thin prep Papanicolaou smear with manual screeningon 11-04-2021 Thin prep Papanicolaou smear with manual screening 8 5-15 [facility] Work Phone: Complete Urinalysison 2021 Appearance (U) Clear Normal Clear [facility] Comment on above: Result Comment: . Performed By: #### C UA2 ####[employer] [id number] [employer] [place], [place] Bacteria Moderate Abnormal Negative [facility] Comment on above: Result Comment: . Performed By: #### C UA2 ####[employer] [id number] [place], [place] Bilirubin,Urine Negative Normal Negative [facility] Comment on above: Result Comment: . Performed By: #### C UA2 ####[employer] [id number] [place], [place] Cast, Hyaline Negative Normal Negative [facility] Comment on above: Result Comment: . Performed By: #### C UA2 ####[id number] [place], [place] Color (U) Yellow Normal Lt. Yellow [facility] Comment on above: Result Comment: . Performed By: #### C UA2 ####[address] [place], [place] Glucose Ql (U) Normal Normal Normal (<70) [facility] Comment on above: Result Comment: . Performed By: #### C UA2 ####[address] [place], [place] Ketone,Urine Negative Normal Negative [facility] Comment on above: Result Comment: . Performed By: #### C UA2 ####[address] [place], [place] Leukocytes,Urine Negative Normal Negative [facility] Comment on above: Result Comment: . Performed By: #### C UA2 ####[address] [place], [place] Mucous Threads Few Normal Negative [facility] Comment on above: Result Comment: . Performed By: #### C UA2 ####[address] [place], [place] Nitrites,Urine Negative Normal Negative [facility] Comment on above: Result Comment: . Performed By: #### C UA2 ####[address] [place], [place] Occult Blood,Urine 0.1 mg/dL Abnormal Negative [facility] Comment on above: Result Comment: . Performed By: #### C UA2 ####[address] [place], [place] pH,Urine 5.5 Normal 5.0-8.0 [facility] Comment on above: Result Comment: . Performed By: #### C UA2 ####[id number] . [place], [place] Protein (U) [Mass/Vol] 10 mg/dL Abnormal Negative [facility] Comment on above: Result Comment: . Performed By: #### C UA2 ####[address] [place], [place] RBC, Urine 26 - 50 Abnormal 0-2 [facility] Comment on above: Result Comment: . Performed By: #### C UA2 ####[address] [place], [place] Specific [place],Urine 1.023 Normal 1.005 - 1.030 [facility] Comment on above: Result Comment: . Performed By: #### C UA2 ####[address] [place], [place] Squamous Epithelial Negative Normal 3-5 [facility] Comment on above: Result Comment: . Performed By: #### C UA2 ####[address] [place], [place] Urobilinogen,Urine Normal Normal Normal (0-1) [facility] Comment on above: Result Comment: . Performed By: #### C UA2 ####[id number] . [place], [place] WBC, Urine 0 - 2 Normal 0-5 [facility] Comment on above: Result Comment: . Performed By: #### C UA2 ####[address] [place], [place] Urinalysison 11-01-2021 Appearance (U) Clear Clear NA [...] . Occult Blood,Urine 0.1 mg/dL Abnormal Negative [facility] Comment on above: . pH (U) 5.5 [pH] [facility] Comment on above: . Protein (U) [Mass/Vol] 10 mg/dL Abnormal Negative [facility] Comment on above: . RBC, UA 26-50 Abnormal 0 - 2 /[HPF] [facility] Comment on above: . Specific [place], Urine 1.023 [facility] Comment on above: . Squam Epithel, UA Negative 3 - 5 /[HPF] [facility] Comment on above: . Urobilinogen, Urine Normal Normal ( 0-1) mg/dL [facility] Comment on above: . WBC, UA 0-2 0 - 5 /[HPF] [facility] Comment on above: . Test Performed by [facility], [address] [place] [phone] [place] [address] - [facility] LAB [facility] Basic Metabolic Panelon 06-2 Anion gap [Moles/Vol] 6 mmol/L Normal 3-13 [facility] Comment on above: Performed By: #### P T/AP, TROPN, BMP3, HEMDF #### [address] [address] Calcium [Mass/Vol] 9.1 mg/dL Normal 8.4-10.4 [facility] Comment on above: Performed By: #### P T/AP, TROPN, BMP3, HEMDF #### [address] [address] CO2 [Moles/Vol] 28 mmol/L Normal 22-30 [facility] Comment on above: Performed By: #### P T/AP, TROPN, BMP3, HEMDF #### [address] [address] Glucose [Mass/Vol] 120 mg/dL High 70-100 [facility] Comment on above: Performed By: #### P T/AP, TROPN, BMP3, HEMDF #### [address] [address] Urea nitrogen [Mass/Vol] 17 mg/dL Normal 7-17 [facility] Comment on above: Performed By: #### P T/AP, TROPN, BMP3, HEMDF #### [facility] [address] [place], [place] Creatinine [Mass/Vol] 0.65 mg/dL Normal 0.52-1.25 [facility] Comment on above: Performed By: #### P T/AP, TROPN, BMP3, HEMDF #### [facility] [address] [place], [place] eGFR OTHER > 90.0 Normal >60 [facility] Comment on above: Result Comment: KDIG O [...] #### P T/AP, TROPN, BMP3, HEMDF #### [address] [place], [place] GFR/1.73 sq M.predicted among blacks MDRD (S/P/Bld) [Vol rate/Area] mL/min/{1.73_m2} Normal >60 [facility] Comment on above: Performed By: #### P T/AP, TROPN, BMP3, HEMDF #### [address] [address] [place], [place] Potassium [Moles/Vol] 3.8 mmol/L Normal 3.5-5.1 [facility] Comment on above: Performed By: #### P T/AP, TROPN, BMP3, HEMDF #### [address] [place], [place] Chloride [Moles/Vol] 101 mmol/L Normal 98-107 [facility] Comment on above: Performed By: #### P T/AP, TROPN, BMP3, HEMDF #### [facility] [address] [place] [address] Sodium [Moles/Vol] 134 mmol/L Low 135-145 [facility] Comment on above: Performed By: #### P T/AP, TROPN, BMP3, HEMDF #### [facility] [address] [place], [place] Anion gap [Moles/Vol] 6 mmol/L 3 - 13 mmol/L [facility] Calcium [Mass/Vol] 9.1 mg/dL 8.4 - 10. 4 mg/dL [facility] Chloride [Moles/Vol] 101 mmol/L 98 - 10 7 mmol/L [facility] CO2 [Moles/Vol] 28 mmol/L 22 - 30 mmol/L [facility] Creatinine [Mass/Vol] 0.65 mg/dL 0.52 - 1.25 mg/dL [facility] EGFR IF NonAfrican Bel[place]an >90.0 >60 mL/min [facility] Comment on above: KDIGO guidelines pro vide [...] - 17 mg/dL [facility] Test Performed by [facility], [address] [place] [phone] [place] [address] LAB [facility] CBC with Auto Differentialon 10-31-2021 [...] - 10.7 10*3/uL [facility] Test Performed by [address] LAB [facility] CR Abdomen APon 10-31-2021 CR Abdomen AP Patient Name: ANDREW SIFUENTES Diagnostic Radiology ACCESSION EXAM DATE/TIME PROCEDURE ORDERING PROVIDER [id number] 10/31/2021 20:36 EDT CR Abdomen AP [id number] -MYRON DURAN CPT code 33178 Reason For 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 (CR 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 AP) 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, 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 CHEST PORTABLE [...] Transcribed Date and Time: 10/31/2021 8:49 Normal [facility] CR Chest Portableon 11-01-19 CR Chest Portable Patient Name: ANDREW SIFUENTES Diagnostic Radiology ACCESSION EXAM DATE/TIME PROCEDURE ORDERING PROVIDER [id number] 10/31/2021 20:36 EDT CR Chest Portable [id number] -DURAN, MYRON CPT code 34007 Reason For Exam (CR Chest Portable) AMS [...] Transcribed Date and Time: 10/31/2021 8:49 Normal [facility] CT HEAD WO CONTRASTon 2021 Patient Name: ANDREW LARSEN Computed Tomography ACCESSION EXAM DATE/TIME PROCEDURE ORDERING PROVIDER [id number] 10/31/2021 20:[address] Head or Brain w/o [id number] -DURAN, MYRON Contrast CPT code 68795 Reason For Exam (CT Head or Brain w/o Contrast) 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, 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 Report Examination: CT Head Clinical Information: 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, 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 Comparison: 10/26/2021, MRI 10/27/2021 Findings: Serial [...] J Transcribed Date and Time: 10/31/2021 8:54 [facility] Alan Wong MD - 10/31/2021 Patient Name: ANDREW SIFUENTES Computed Tomography ACCESSION EXAM DATE/TIME PROCEDURE ORDERING PROVIDER [id number] 10/31/2021 20:[address] Head or Brain w/o [id number] -MYRON DURAN Contrast CPT code 04027 Reason For Exam (CT Head or Brain w/o Contrast) 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, 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 Report Examination: CT Head Clinical Information: 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, 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 Comparison: 10/26/2021, MRI 10/27/2021 Findings: Serial [...] Tomography ACCESSION EXAM DATE/TIME PROCEDURE ORDERING PROVIDER [id number] 10/31/2021 20:[address] Head or Brain w/o [id number] -MYRON DURAN Contrast CPT code 46815 Reason For Exam (CT Head or Brain w/o Contrast) 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 According to the [facility], he has been more lethargic than normal, [...] are mis-transcribed.) Dante Kim MD Acute Care [facility] Dante Kim MD 10/31/21 2211 [facility] ED Provider Note [facility] EMERGENCY DEPT EMERGENCY DEPARTMENT ENCOUNTER Pt Name: Andrew Sifuentes Birthdate 1950 Date of evaluation: 10/31/2021 Provider: Myron Duran MD CHIEF COMPLAINT Chief Complaint Patient presents with ? Altered Mental Status Pt presents to ED via [facility] for complaint listed. Pt is from [place] [facility]. Pt's LKW was 1000 hours today. Per [...] have a history of hydrocephalus with a WORK ADJUSTMENT INSTRUCTOR shunt. 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 REVIEW OF [...] (HCC) ? Kidney stone ? Neuropathy ? WORK ADJUSTMENT INSTRUCTOR (ventriculoperitoneal) shunt status SURGICAL HISTORY Past Surgical [...] of Transportati (more content not included)... 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 : 1950 Requested By: MYRON DURAN Order Number: [id number] Reading MD: Dante Kim Measurements Intervals [place] Rate: 91 P: 41 IA: 154 QRS: 50 QRSD: 147 T: 8 QT: 385 QTc: 474 Interpretive Statements Sinus rhythm Right bundle branch block Electronically Signed On 10-31-2021 20:36:25 EDT by Dante Kim [facility] CARDIOLOGY Dante Kim M D - 10/31/2021 [facility] Test Date: 2021-10-31 Pat Name: ANDREW SIFUENTES Department: [facility] Room: 40 Gender: M 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 Therapy 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: ANDRES : 1950 Requested By: MYRON DURAN Order Number: [id number] Reading MD: Dante Kim Measurements Intervals [place] Rate: 91 P: 41 IA: 154 QRS: 50 QRSD: 147 T: 8 QT: 385 QTc: 474 Interpretive Statements Sinus rhythm Right bundle branch block Electronically Signed On 10-31-2021 20:36:25 EDT by Dante Kim [facility] Work Phone: EKG 12 Lead - Chest PainOrde red By: Dante Kim on 10-31-2021 [employer] Work Phone: Hemogram w/ Autodiffon 10-31 Abs Baso Cnt 0.1 10*3/uL Normal 0.0-0.2 [facility] Comment on above: Performed By: #### P T/AP, TROPN, BMP3, HEMDF #### [address] [place] [address] Abs Neutrophile Cnt 6.0 10*3/uL Normal 1.8-7.0 [facility] Comment on above: Performed By: #### P T/AP, TROPN, BMP3, HEMDF #### [address] [place] [address] Basophils/100 WBC (Bld) 1.1 % Normal 0.0-2.0 [facility] Comment on above: Performed By: #### P T/AP, TROPN, BMP3, HEMDF #### [address] [address] Eosinophils (Bld) [#/Vol] 0.2 10*3/uL Normal 0.0-0.5 [facility] Comment on above: Performed By: #### P T/AP, TROPN, BMP3, HEMDF #### [address] [address] Eosinophils/100 WBC (Bld) 2.3 % Normal 1.0-6.0 [facility] Comment on above: Performed By: #### P T/AP, TROPN, BMP3, HEMDF #### [address] [address] Erythrocyte distribution width (RBC) [Ratio] 17.2 % High 11.5-14.5 [facility] Comment on above: Performed By: #### P T/AP, TROPN, BMP3, HEMDF #### [address] [place], [place] Granulocytes/100 WBC (Bld) 61.8 % Normal 40.0-80.0 [facility] Comment on above: Performed By: #### P T/AP, TROPN, BMP3, HEMDF #### [address] [place], [place] Hematocrit (Bld) [Volume fraction] 35.0 % Low 40.0-52.0 [facility] Comment on above: Performed By: #### P T/AP, TROPN, BMP3, HEMDF #### [address] [place], [place] Hemoglobin (Bld) [Mass/Vol] 11.3 g/dL Low 13.0-18.0 [facility] Comment on above: Performed By: #### P T/AP, TROPN, BMP3, HEMDF #### [address] [place], [place] Lymphocytes (Bld) [#/Vol] 2.8 10*3/uL Normal 1.0-4.3 [facility] Comment on above: Performed By: #### P T/AP, TROPN, BMP3, HEMDF #### [address] [place], [place] Lymphocytes/100 WBC (Bld) 29.2 % Normal 20.0-40.0 [facility] Comment on above: Performed By: #### P T/AP, TROPN, BMP3, HEMDF #### [address] [place], [place] MCH (RBC) [Entitic mass] 27.5 pg Normal 26.0-34.0 [facility] Comment on above: Performed By: #### P T/AP, TROPN, BMP3, HEMDF #### [address] MCHC 32.3 % Normal 32.0-36.0 [facility] Comment on above: Performed By: #### P T/AP, TROPN, BMP3, HEMDF #### [address] [place] MCV (RBC) [Entitic vol] 85.0 fL Normal 80.0-98.0 [facility] Comment on above: Performed By: #### P T/AP, TROPN, BMP3, HEMDF #### [address] [place], [place] Monocytes (Bld) [#/Vol] 0.5 10*3/uL Normal 0.0-0.8 [facility] Comment on above: Performed By: #### P T/AP, TROPN, BMP3, HEMDF #### [address] [place] Monocytes/100 WBC (Bld) 5.6 % Normal 2.0-10.0 [facility] Comment on above: Performed By: #### P T/AP, TROPN, BMP3, HEMDF #### [address] [place], [place] Platelet mean volume (Bld) [Entitic vol] 8.6 fL Normal 7.4-12.4 [facility] Comment on above: Result Comment: MPV is a calculated measurement using platelet volume ratio. Performed By: #### P T/AP, TROPN, BMP3, HEMDF #### [address] [place], [place] Platelets (Bld) [#/Vol] 348 10*3/uL Normal 140-440 [facility] Comment on above: Performed By: #### P T/AP, TROPN, BMP3, HEMDF #### [address] [place] RBC (Bld) [#/Vol] 4.12 10*6/uL Low 4.40-5.90 [facility] Comment on above: Performed By: #### P T/AP, TROPN, BMP3, HEMDF #### [address] [place], [place] WBC (Bld) [#/Vol] 9.7 10*3/uL Normal 3.6-10.7 [facility] Comment on above: Performed By: #### P T/AP, TROPN, BMP3, HEMDF #### [address] [address] Laboratory - Coagulationon 0 10-31-2021 INR Coag (Bld) [Relative time] 2.0 {INR} [facility] Work Phone: Comment on above: Critical Value > 4.0 No Panel Informationon 10-31 Radiology Study observation (narrative) [facility] Work Phone: PROTIME/INR & PTTon 11-01-19 aPTT Coag (Bld) [Time] 39.2 s High 20.0 - 30.5 s [facility] Comment on above: NOTE: The therapeuti c time for Heparin anticoagulation, based on Xa activity inhibition, is an APTT of 46-80 seconds. INR Coag (Bld) [Relative time] 1.9 {INR} High [facility] Comment on above: Recommended Anticoag ulant Therapy: [...] Interpretation and review of laboratory results Abnormal [facility] PT Coag (PPP) [Time] 19.8 s High 9.0 - 12.0 s [facility] Comment on above: . Test Performed by [facility], [address] [place] [id number] [facility] Protime AND APTTon aPTT Coag (Bld) [Time] 39.2 s High 20.0-30.5 [facility] Comment on above: Result Comment: NOTE : The therapeutic time for Heparin anticoagulation, based on Xa activity inhibition, is an APTT of 46-80 seconds. Performed By: #### P T/AP, TROPN, BMP3, HEMDF #### [address] [address] INR 1.9 High 0.9-1.1 [facility] Comment on above: Result Comment: Harry [...] #### P T/AP, TROPN, BMP3, HEMDF #### [address] PT Coag (PPP) [Time] 19.8 s High 9.0-12.0 [facility] Comment on above: Result Comment: . Performed By: #### P T/AP, TROPN, BMP3, HEMDF #### [address] [address] Troponin Ion 10-31-2021 Troponin I.cardiac [Mass/Vol] ng/mL Normal 0.000-0.034 [facility] Comment on above: Result Comment: . Performed By: #### P T/AP, TROPN, BMP3, HEMDF #### [address] [address] Troponin x1on 10-31-2021 Troponin I.cardiac [Mass/Vol] ng/mL 0.000 - 0.034 ng/mL [facility] Comment on above: . 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, 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 CHEST PORTABLE [...] WENDELL Transcribed Date and Time: 10/31/2021 8:49 [facility] Huang Reynoso MD - 10/31/2021 Patient Name: ANDREW SIFUENTES Diagnostic Radiology ACCESSION EXAM DATE/TIME PROCEDURE ORDERING PROVIDER [id number] 10/31/2021 20:36 EDT CR Abdomen AP [id number] MYRON GALINDO CPT code 13577 Reason For Exam (CR Abdomen AP) 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, 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 CHEST PORTABLE [...] XR CHEST PORTABLEon 11-01-19 Patient Name: [id number] Radiology ACCESSION EXAM DATE/TIME PROCEDURE ORDERING PROVIDER [id number] 10/31/2021 20:36 EDT CR Chest Portable [id number] ISAACDURAN MYRON CPT code 21875 Reason For Exam (CR Chest Portable) AMS [...] WENDELL Transcribed Date and Time: 10/31/2021 8:49 [facility] Huang Reynoso MD - 10/31/2021 Patient Name: ANDREW SIFUENTES Diagnostic Radiology ACCESSION EXAM DATE/TIME PROCEDURE ORDERING PROVIDER [id number] 10/31/2021 20:36 EDT CR Chest Portable [id number] -DURANMYRON CPT code 63044 Reason For Exam (CR Chest Portable) AMS [...] WENDELL Transcribed Date and Time: 10/31/2021 8:49 [facility] Work Phone: XR CHEST PORTABLEOrdered By: Huang Reynoso on 10-31-2021 [facility] Work Phone: Lupus Anticoagulanton 2021 DRVVT Confirmation Test Not Applicable Negative ratio [facility] Work Phone: [phone] dRVVT Screen 38 [facility] Work Phone: 1 Hex Phosph Neut Test Not Applicable Negative NA [facility] Work Phone: [phone] Interpretation and review of laboratory results Abnormal [facility] Work Phone: 1 LUPUS INTERPRETATION See Note [facility] Work Phone: 1 Comment on above: Lupus anticoagulant not detected. [...] has not already been performed. Performed by [facility], [address] [place] [id number] [email or web address] Quiana Castro MD - Lab. Director Platelet Neutralization Not Applicable Negative NA [facility] Work Phone: [phone] PTT-D Heparin Neutralized 48 [facility] Work Phone: [phone] PTT-LA 55 High [facility] Work Phone: 1) Reptilase Tm 17.6 <=21.9 sec [facility] Work Phone: ) [phone] Thrombin Time 25.3 High [facility] Work Phone: [phone] [facility] Work Phone: [phone] Lupus Anticoagulant Reflexiv e Panelon 10-29-2021 aPTT Coag (Bld) [Time] 55 s High 32-48 [facility] Comment on above: Performed By: #### C OVAG #### [facility] [address] [place] [address] aPTT Coag (Bld) [Time] 48 s Normal 32-48 [facility] Comment on above: Performed By: #### C OVAG #### [facility] [address] [place] [address] DRVVT 1:1 Mix Not Applicable Normal 33-44 [facility] Work Phone: Comment on above: Performed By: #### C OVAG #### [facility] [address] [place] [address] dRVVT Confirmation Not Applicable Normal Negative [facility] Comment on above: Performed By: #### C OVAG #### [facility] [address] [place] [address] dRVVT Screen 38 sec Normal 33-44 [facility] Comment on above: Performed By: #### C OVAG #### [facility] [address] [place] [address] Hexagonal Phospholipid Neutral Reflex Not Applicable Normal Negative [facility] Comment on above: Performed By: #### C OVAG #### [facility] [address] [place] [address] Lupus Anticoagulant Interpretation See Note Normal [facility] Comment on above: Result Comment: Lupu s [...] has not already been performed. Performed by [facility], [address] [place] [id number] [email or web address] Quiana Castro MD - Lab. Director Performed By: #### C OVAG #### [facility] [address] [place] [address] Platelet Neutralization (PTT-D, Confirm) Not Applicable Normal Negative [facility] Comment on above: Performed By: #### C OVAG #### [facility] [address] [place] [address] PT Coag (PPP) [Time] 14.7 s Normal 12.0-15.5 [place] Work Phone: Comment on above: Performed By: #### C OVAG #### [facility] [address] [place] [address] PTT-D 1:1 Mix Not Applicable Normal 32-48 [facility] Work Phone: Comment on above: Performed By: #### C OVAG #### [facility] [address] [place] [address] Reptilase Time 17.6 sec Normal <=21.9 [facility] Comment on above: Performed By: #### C OVAG #### [facility] [address] [place] [address] Thrombin Time 25.3 sec High 14.7-19.5 [facility] Comment on above: Performed By: #### C OVAG #### [facility] [address] [place] [address] POCT COVID-19, Antigenon SARS-CoV-2 Nucleocapsid Antigen Negative Negative [facility] Comment on above: A negative result does not rule out the possibility of SARS-CoV-2 infection. NAAT-based methods should be considered for symptomatic patients presenting greater than seven days after onset of symptoms. Method: Lateral flow immunoassay. Fact sheets for healthcare providers and patients can be found at the following sites: https://www.fda.gov/media/222527/download https://www.fda.gov/media/251913/download Test Performed by [facility], [address] LAB [facility] Prothrombin Timeon 2 INR 2.7 High 0.9-1.1 [facility] Comment on above: Result Comment: Harry [...] Infarction Performed By: #### P T #### [facility] [address] [place] [address] PT Coag (PPP) [Time] 27.4 s High 9.0-12.0 [facility] Comment on above: Result Comment: . Performed By: #### P T #### [facility] [address] [place] [address] Protime-INRon 10-29-2021 INR Coag (Bld) [Relative time] 2.7 {INR} High [facility] Work Phone: Comment on above: Recommended Anticoag [...] Interpretation and review of laboratory results Abnormal [facility] Work Phone: PT Coag (PPP) [Time] 27.4 s High 9.0 - 12.0 s [facility] Work Phone: Comment on above: . Test Performed by [facility], [address] [place], [place], [place] [id number] [place] [address] LAB [facility] Work Phone: SARS-CoV-2 Antigenon 022 SARS-CoV-2 Antigen Negative Normal Negative [facility] Comment on above: Result Comment: A negative result does not rule out the possibility of SARS-CoV-2 infection. NAAT-based methods should be considered for symptomatic patients presenting greater than seven days after onset of symptoms. Method: Lateral flow immunoassay. Fact sheets for healthcare providers and patients can be found at the following sites: https://www.fda.gov/media/420575/download https://www.fda.gov/media/899515/download Performed By: #### C OVAG #### [facility] [address] [place] [address] CBCon 10-28-2021 Hematocrit (Bld) [Volume fraction] 33.4 % Low 40.0 - 52.0 % [facility] Work Phone: ) Hemoglobin (Bld) [Mass/Vol] 11.0 g/dL Low 13.0 - 18.0 g/dL [facility] Work Phone: Interpretation and review of laboratory results Abnormal [facility] Work Phone: ) MCH (RBC) [Entitic mass] 27.8 pg 26.0 - 34.0 pg [facility] Work Phone: ) MCHC (RBC) [Mass/Vol] 32.8 % 32.0 - 36.0 % [facility] Work Phone: MCV (RBC) [Entitic vol] 84.8 fL 80.0 - 98.0 fL [facility] Work Phone: ) Platelet distribution width (Bld) [Ratio] 17.1 % High 11.5 - 14.5 % [facility] Work Phone: ) Platelet mean volume (Bld) [Entitic vol] 8.3 fL 7.4 - 12.4 fL [facility] Work Phone: ) Comment on above: MPV is a calculated measurement using platelet volume ratio. Platelets (Bld) [#/Vol] 344 10*3/uL 140 - 440 10*3/uL [facility] Work Phone: ) RBC (Bld) [#/Vol] 3.94 10*6/uL Low 4.40 - 5.9 0 10*6/uL [facility] Work Phone: ) WBC (Bld) [#/Vol] 10.0 10*3/uL 3.6 - 10.7 10*3/uL [facility] Work Phone: ) Test Performed by [facility], [address] [place], [place], [place] [address] [facility] LAB [facility] Work Phone: [phone] Comp Metabolic Panelon 10-28 ALP [Catalytic activity/Vol] 103 U/L Normal 38-126 [facility] Comment on above: Performed By: #### C A19O, LUPUS #### The performing lab is in the report. #### NSEO #### [facility] #### HEMDF, LDH3, BMP3, MG3, PT, CEA2 #### [address] [place] [address] #### B2GPM, B2GPA, B2GPG #### [address] ALT [Catalytic activity/Vol] 26 U/L Normal 0-49 [facility] Comment on above: Result Comment: The ALT test is performed by an updated assay method. Please note that the reference intervals have been changed and are now sex specific. Performed By: #### C A19O, LUPUS #### The performing lab is in the report. #### NSEO #### [facility] #### HEMDF, LDH3, BMP3, MG3, PT, CEA2 #### [address] [place] [address] #### B2GPM, B2GPA, B2GPG #### [address] AST [Catalytic activity/Vol] 24 U/L Normal 15-46 [facility] Comment on above: Performed By: #### C A19O, LUPUS #### The performing lab is in the report. #### NSEO #### [facility] #### HEMDF, LDH3, BMP3, MG3, PT, CEA2 #### [address] [place] [address] #### B2GPM, B2GPA, B2GPG #### [address] Calcium [Mass/Vol] 9.1 mg/dL Normal 8.4-10.4 [facility] Comment on above: Performed By: #### C A19O, LUPUS #### The performing lab is in the report. #### NSEO #### [facility] #### HEMDF, LDH3, BMP3, MG3, PT, CEA2 #### [place] [address] [place] [address] #### B2GPM, B2GPA, B2GPG #### [address] Glucose [Mass/Vol] 117 mg/dL High 70-100 [facility] Comment on above: Performed By: #### C A19O, LUPUS #### The performing lab is in the report. #### NSEO #### [facility] #### HEMDF, LDH3, BMP3, MG3, PT, CEA2 #### [address] [place] [address] #### B2GPM, B2GPA, B2GPG #### [address] Urea nitrogen [Mass/Vol] 16 mg/dL Normal 7-17 [facility] Comment on above: Performed By: #### C A19O, LUPUS #### The performing lab is in the report. #### NSEO #### [facility] #### HEMDF, LDH3, BMP3, MG3, PT, CEA2 #### [address] [place] [address] #### B2GPM, B2GPA, B2GPG #### [address] Anion gap [Moles/Vol] 5 mmol/L Normal 3-13 [facility] Comment on above: Performed By: #### C A19O, LUPUS #### The performing lab is in the report. #### NSEO #### [facility] #### HEMDF, LDH3, BMP3, MG3, PT, CEA2 #### [address] [place] [address] #### B2GPM, B2GPA, B2GPG #### [address] Bilirubin [Mass/Vol] 0.4 mg/dL Normal 0.2-1.3 [facility] Comment on above: Performed By: #### C A19O, LUPUS #### The performing lab is in the report. #### NSEO #### [facility] #### HEMDF, LDH3, BMP3, MG3, PT, CEA2 #### [facility] [address] [place] [address] #### B2GPM, B2GPA, B2GPG #### [address] CO2 [Moles/Vol] 29 mmol/L Normal 22-30 [facility] Comment on above: Performed By: #### C A19O, LUPUS #### The performing lab is in the report. #### NSEO #### [facility] #### HEMDF, LDH3, BMP3, MG3, PT, CEA2 #### [place] [address] [place] [address] #### B2GPM, B2GPA, B2GPG #### [address] Creatinine [Mass/Vol] 0.71 mg/dL Normal 0.52-1.25 [facility] Comment on above: Performed By: #### C A19O, LUPUS #### The performing lab is in the report. #### NSEO #### [facility] #### HEMDF, LDH3, BMP3, MG3, PT, CEA2 #### [address] [place] [address] #### B2GPM, B2GPA, B2GPG #### [address] eGFR OTHER > 90.0 Normal >60 [facility] Comment on above: Result Comment: KDIG O [...] HEMDF, LDH3, BMP3, MG3, PT, CEA2 #### [facility] [address] [place] [address] #### B2GPM, B2GPA, B2GPG #### [address] [phone] GFR/1.73 sq M.predicted among blacks MDRD (S/P/Bld) [Vol rate/Area] mL/min/{1.73_m2} Normal >60 [facility] Comment on above: Performed By: #### C A19O, LUPUS #### The performing lab is in the report. #### NSEO #### [facility] #### HEMDF, LDH3, BMP3, MG3, PT, CEA2 #### [facility] [address] [place] [address] #### B2GPM, B2GPA, B2GPG #### [address] [phone] Protein [Mass/Vol] 7.1 g/dL Normal 6.3-8.2 [facility] Comment on above: Performed By: #### C A19O, LUPUS #### The performing lab is in the report. #### NSEO #### [facility] #### HEMDF, LDH3, BMP3, MG3, PT, CEA2 #### [facility] [address] [place] [address] #### B2GPM, B2GPA, B2GPG #### [address] Potassium [Moles/Vol] 3.5 mmol/L Normal 3.5-5.1 [facility] Comment on above: Performed By: #### C A19O, LUPUS #### The performing lab is in the report. #### NSEO #### [facility] #### HEMDF, LDH3, BMP3, MG3, PT, CEA2 #### [place] [address] [place] [address] #### B2GPM, B2GPA, B2GPG #### [address] Sodium [Moles/Vol] 138 mmol/L Normal 135-145 [facility] Comment on above: Performed By: #### C A19O, LUPUS #### The performing lab is in the report. #### NSEO #### [facility] #### HEMDF, LDH3, BMP3, MG3, PT, CEA2 #### [address] [place] #### B2GPM, B2GPA, B2GPG #### [address] Albumin [Mass/Vol] 3.7 g/dL Normal 3.5-5.0 [facility] Comment on above: Performed By: #### C A19O, LUPUS #### The performing lab is in the report. #### NSEO #### [facility] #### HEMDF, LDH3, BMP3, MG3, PT, CEA2 #### [address] [place] [address] #### B2GPM, B2GPA, B2GPG #### [address] Chloride [Moles/Vol] 104 mmol/L Normal 98-107 [facility] Comment on above: Performed By: #### C A19O, LUPUS #### The performing lab is in the report. #### NSEO #### [facility] #### HEMDF, LDH3, BMP3, MG3, PT, CEA2 #### [facility] [address] [place] [address] #### B2GPM, B2GPA, B2GPG #### [facility] [address] [facility] [place] [place] [address] Comprehensive Metabolic Pane kiel 10-28-2021 Albumin [Mass/Vol] 3.7 g/dL 3.5 - 5.0 g/dL [facility] Work Phone: [phone] ALP (Bld) [Catalytic activity/Vol] 103 U/L 38 - 126 U/L [facility] Work Phone: [phone] ALT [Catalytic activity/Vol] 26 U/L 0 - 49 U/L [facility] Work Phone: ) Comment on above: The ALT test is perf ormed by an updated assay method. Please note that the reference intervals have been changed and are now sex specific. Anion gap [Moles/Vol] 5 mmol/L 3 - 13 mmol/L [facility] Work Phone: [phone] AST [Catalytic activity/Vol] 24 U/L 15 - 46 U/L [facility] Work Phone: [phone] Bilirubin [Mass/Vol] 0.4 mg/dL 0.2 - 1 .3 mg/dL [facility] Work Phone: [phone] Calcium [Mass/Vol] 9.1 mg/dL 8.4 - 10. 4 mg/dL [facility] Work Phone: [phone] Chloride [Moles/Vol] 104 mmol/L 98 - 10 7 mmol/L [facility] Work Phone: [phone] CO2 [Moles/Vol] 29 mmol/L 22 - 30 mmol/L [facility] Work Phone: [phone] Creatinine [Mass/Vol] 0.71 mg/dL 0.52 - 1.25 mg/dL [facility] Work Phone: [phone] EGFR IF NonAfrican [place]an >90.0 >60 mL/min [facility] Work Phone: [phone] Comment on above: KDIGO guidelines pro vide [...] fraction] 7.1 g/dL 6.3 - 8.2 g/dL [facility] Work Phone: GFR/1.73 sq M.predicted among blacks MDRD (S/P/Bld) [Vol rate/Area] mL/min/{1.73_m2} >60 mL/min [facility] Work Phone: Glucose [Mass/Vol] 117 mg/dL High 70 - 100 mg/dL [facility] Work Phone: Interpretation and review of laboratory results Abnormal [facility] Work Phone: Potassium [Moles/Vol] 3.5 mmol/L 3.5 - 5.1 mmol/L [facility] Work Phone: Sodium [Moles/Vol] 138 mmol/L 135 - 145 mmol/L [facility] Work Phone: Urea nitrogen (BldV) [Mass/Vol] 16 mg/dL 7 - 17 mg/dL [facility] Work Phone: Test Performed by [facility], [address] [place], [place], [place] [id number] [place] [address] LAB [facility] Work Phone: Hemogramon 10-28-2021 Erythrocyte distribution width (RBC) [Ratio] 17.1 % High 11.5-14.5 [facility] Comment on above: Performed By: #### C A19O, LUPUS #### The performing lab is in the report. #### NSEO #### [facility] #### HEMDF, LDH3, BMP3, MG3, PT, CEA2 #### [facility] [address] [place] #### B2GPM, B2GPA, B2GPG #### [address] Hematocrit (Bld) [Volume fraction] 33.4 % Low 40.0-52.0 [facility] Comment on above: Performed By: #### C A19O, LUPUS #### The performing lab is in the report. #### NSEO #### [facility] #### HEMDF, LDH3, BMP3, MG3, PT, CEA2 #### [address] [place] #### B2GPM, B2GPA, B2GPG #### [address] Hemoglobin (Bld) [Mass/Vol] 11.0 g/dL Low 13.0-18.0 [facility] Comment on above: Performed By: #### C A19O, LUPUS #### The performing lab is in the report. #### NSEO #### [facility] #### HEMDF, LDH3, BMP3, MG3, PT, CEA2 #### [address] [place] #### B2GPM, B2GPA, B2GPG #### [address] MCH (RBC) [Entitic mass] 27.8 pg Normal 26.0-34.0 [facility] Comment on above: Performed By: #### C A19O, LUPUS #### The performing lab is in the report. #### NSEO #### [facility] #### HEMDF, LDH3, BMP3, MG3, PT, CEA2 #### [address] [place] #### B2GPM, B2GPA, B2GPG #### [address] MCHC 32.8 % Normal 32.0-36.0 [facility] Comment on above: Performed By: #### C A19O, LUPUS #### The performing lab is in the report. #### NSEO #### [facility] #### HEMDF, LDH3, BMP3, MG3, PT, CEA2 #### [address] [place] #### B2GPM, B2GPA, B2GPG #### [address] MCV (RBC) [Entitic vol] 84.8 fL Normal 80.0-98.0 [facility] Comment on above: Performed By: #### C A19O, LUPUS #### The performing lab is in the report. #### NSEO #### [facility] #### HEMDF, LDH3, BMP3, MG3, PT, CEA2 #### [address] [place] #### B2GPM, B2GPA, B2GPG #### [address] Platelet mean volume (Bld) [Entitic vol] 8.3 fL Normal 7.4-12.4 [facility] Comment on above: Result Comment: MPV is a calculated measurement using platelet volume ratio. Performed By: #### C A19O, LUPUS #### The performing lab is in the report. #### NSEO #### [facility] #### HEMDF, LDH3, BMP3, MG3, PT, CEA2 #### [address] [place] #### B2GPM, B2GPA, B2GPG #### [address] Platelets (Bld) [#/Vol] 344 10*3/uL Normal 140-440 [facility] Comment on above: Performed By: #### C A19O, LUPUS #### The performing lab is in the report. #### NSEO #### [facility] #### HEMDF, LDH3, BMP3, MG3, PT, CEA2 #### [facility] [address] [place] [address] #### B2GPM, B2GPA, B2GPG #### [address] RBC (Bld) [#/Vol] 3.94 10*6/uL Low 4.40-5.90 [facility] Comment on above: Performed By: #### C A19O, LUPUS #### The performing lab is in the report. #### NSEO #### [facility] #### HEMDF, LDH3, BMP3, MG3, PT, CEA2 #### [place] [address] [place] #### B2GPM, B2GPA, B2GPG #### [address] WBC (Bld) [#/Vol] 10.0 10*3/uL Normal 3.6-10.7 [facility] Comment on above: Performed By: #### C A19O, LUPUS #### The performing lab is in the report. #### NSEO #### [facility] #### HEMDF, LDH3, BMP3, MG3, PT, CEA2 #### [place] [address] [place] [address] #### B2GPM, B2GPA, B2GPG #### [address] Neuron Specific Enolaseon Neuron Specific Enolase 20.8 Normal [facility] Comment on above: Result Comment: Neur on Specific Enolase, Serum 20.8 ng/mL H (Ref Interval: <=12.7) NSE and Hgb are elevated in the specimen. The elevated NSE may be a result of hemolysis as NSE is expressed in red blood cells. Interpret results with caution. INTERPRETIVE INFORMATION: Neuron Specific Enolase in Serum This assay is performed using the [employer] NSE Kryptor Immunoassay. Results obtained with different assay methods or kits cannot be used interchangeably. Results cannot be interpreted as absolute evidence of the presence or absence of malignant disease. This test was developed and its performance characteristics determined by [facility]. It has not been cleared or approved by the [place] Food and Drug Administration. This test was performed in a CLIA certified laboratory and is intended for clinical purposes. Performed By: #### C OVAG #### [facility] [address] [place] [address] Neuron specific enolase (NSE )on 10-28-2021 Neuron Specific Enolase 20.8 [facility] Work Phone: Comment on above: Neuron Specific Enol ase, Serum 20.8 ng/mL H (Ref Interval: <=12.7) NSE and Hgb are elevated in the specimen. The elevated NSE may be a result of hemolysis as NSE is expressed in red blood cells. Interpret results with caution. INTERPRETIVE INFORMATION: Neuron Specific Enolase in Serum This assay is performed using the [employer] NSE Kryptor Immunoassay. Results obtained with different assay methods or kits cannot be used interchangeably. Results cannot be interpreted as absolute evidence of the presence or absence of malignant disease. This test was developed and its performance characteristics determined by [facility]. It has not been cleared or approved by the [place] Food and Drug Administration. This test was performed in a CLIA certified laboratory and is intended for clinical purposes. 1 [facility] LAB [facility] Work Phone: Prothrombin Timeon 2 INR 3.1 High 0.9-1.1 [facility] Comment on above: Result Comment: Harry [...] HEMDF, LDH3, BMP3, MG3, PT, CEA2 #### [facility] [address] [place] [address] #### B2GPM, B2GPA, B2GPG #### [facility] [address] [place] [address] PT Coag (PPP) [Time] 30.8 s High 9.0-12.0 [facility] Comment on above: Result Comment: . Performed By: #### C A19O, LUPUS #### The performing lab is in the report. #### NSEO #### [facility] #### HEMDF, LDH3, BMP3, MG3, PT, CEA2 #### [facility] [address] [place] [address] #### B2GPM, B2GPA, B2GPG #### [address] [address] Protime-INRon 10-28-2021 INR Coag (Bld) [Relative time] 3.1 {INR} High [facility] Work Phone: Comment on above: Recommended Anticoag [...] Interpretation and review of laboratory results Abnormal [facility] Work Phone: PT Coag (PPP) [Time] 30.8 s High 9.0 - 12.0 s [facility] Work Phone: Comment on above: . Test Performed by [facility], [address], [place], [place] [address] [facility] Work Phone: MRI BRAIN WO CONTRASTon 10-06 Patient [facility]: [id number] Magnetic Resonance Imaging ACCESSION EXAM DATE/TIME PROCEDURE ORDERING PROVIDER [id number] 10/27/2021 13:14 EDT MRI Brain w/o Contrast UNASSIGNED, UNASSIGNED CPT code 11828 Reason For Exam (MRI Brain w/o Contrast) stroke Patient has WORK ADJUSTMENT INSTRUCTOR shunt in place, please follow Radiology protocol [...] OSAMA Transcribed Date and Time: 10/27/2021 2:39 [facility] Venus Loyd MD - 10/27/2021 Patient Name: ANDREW SIFUENTES Magnetic Resonance Imaging ACCESSION EXAM DATE/TIME PROCEDURE ORDERING PROVIDER [id number] 10/27/2021 13:14 EDT MRI Brain w/o Contrast UNASSIGNED, UNASSIGNED CPT code 73490 Reason For Exam (MRI Brain w/o Contrast) stroke Patient has WORK ADJUSTMENT INSTRUCTOR shunt in place, please follow Radiology protocol [...] Imaging ACCESSION EXAM DATE/TIME PROCEDURE ORDERING PROVIDER [id number] 10/27/2021 13:14 EDT MRI Brain w/o Contrast UNASSIGNED, UNASSIGNED CPT code 23451 Reason For Exam (MRI Brain w/o Contrast) stroke Patient has WORK ADJUSTMENT INSTRUCTOR shunt in place, please follow Radiology protocol [...] Transcribed Date and Time: 10/27/2021 2:39 Normal [facility] Prothrombin Timeon INR 2.1 High 0.9-1.1 [facility] Comment on above: Result Comment: Harry [...] Infarction Performed By: #### P T #### [facility] [address] [place] [address] PT Coag (PPP) [Time] 21.9 s High 9.0-12.0 [place] Work Phone: Comment on above: . Result Comment: . Performed By: #### P T #### [facility] [address] [place] [address] Protime-INRon 10-27-2021 INR Coag (Bld) [Relative time] 2.1 {INR} High [facility] Work Phone: Comment on above: Recommended Anticoag [...] Interpretation and review of laboratory results Abnormal [facility] Work Phone: Test Performed by [facility], [address] [place], [place] [address] [facility] Work [facility]: CT HEAD WO CONTRASTon 2021 Patient Name: ANDREW SIFUENTES Computed Tomography ACCESSION EXAM DATE/TIME PROCEDURE ORDERING PROVIDER [id number] 10/26/2021 11:[address] Head or Brain w/o LOIS, FAST FOOD SALES ASSISTANT, SARINA Contrast CPT code 08421 Reason For Exam (CT Head or Brain w/o Contrast) hydrocephalus. thank you Report CLINICAL INFORMATION: Hydrocephalus. Shunt. 3 mm axial cuts through the head are obtained without IV contrast. The examination is compared to a previous study dated 06/29/2014. FINDINGS: Old WORK ADJUSTMENT INSTRUCTOR shunt tubing is noted bilaterally. The new [...] are clear. IMPRESSION: 1. Old and new WORK ADJUSTMENT INSTRUCTOR shunt tubing. 2. No hydrocephalus. 3. Atrophy and evidence of small-vessel ischemic disease. 4. No CT evidence of an acute intracranial process. Report Dictated on --- Final --- Dictating Physician: MD SOLANO JEFFREY Signed Date and Time: 10/26/2021 11:42 am Signed by: MD SOLANO JEFFREY Transcribed Date and Time: 10/26/2021 11:43 [facility] Albert Solano MD - 10/26/2021 Patient Name: ANDREW SIFUENTES Computed Tomography ACCESSION EXAM DATE/TIME PROCEDURE ORDERING PROVIDER [id number] 10/26/2021 11:[address] Head or Brain w/o LOIS, FAST FOOD SALES ASSISTANT, SARINA Contrast CPT code 23241 Reason For Exam (CT Head or Brain w/o Contrast) hydrocephalus. thank you Report CLINICAL INFORMATION: Hydrocephalus. Shunt. 3 mm axial cuts through the head are obtained without IV contrast. The examination is compared to a previous study dated 06/29/2014. FINDINGS: Old WORK ADJUSTMENT INSTRUCTOR shunt tubing is noted bilaterally. The new [...] are clear. IMPRESSION: 1. Old and new WORK ADJUSTMENT INSTRUCTOR shunt tubing. 2. No hydrocephalus. 3. Atrophy and evidence of small-vessel ischemic disease. 4. No CT evidence of an acute intracranial process. Report Dictated on --- Final --- Dictating Physician: MD SOLANO JEFFREY Signed Date and Time: 10/26/2021 11:42 am Signed by: MD SOLANO JEFFREY Transcribed Date and Time: 10/26/2021 11:43 [facility]: CT HEAD WO CONTRASTOrdered B y: Albert Solano on 10-26-2021 [facility] Work Phone: CT Head or Brain w/o Contras ton 10-26-2021 CT Head or Brain w/o Contrast Patient Name: ANDREW SIFUENTES Computed Tomography ACCESSION EXAM DATE/TIME PROCEDURE ORDERING PROVIDER [id number] 10/26/2021 11:[address] Head or Brain w/o LOIS, FAST FOOD SALES ASSISTANT, SARINA Contrast CPT code 11954 Reason For Exam (CT Head or Brain w/o Contrast) hydrocephalus. thank you Report CLINICAL INFORMATION: Hydrocephalus. Shunt. 3 mm axial cuts through the head are obtained without IV contrast. The examination is compared to a previous study dated 06/29/2014. FINDINGS: Old WORK ADJUSTMENT INSTRUCTOR shunt tubing is noted bilaterally. The new [...] are clear. IMPRESSION: 1. Old and new WORK ADJUSTMENT INSTRUCTOR shunt tubing. 2. No hydrocephalus. 3. Atrophy and evidence of small-vessel ischemic disease. 4. No CT evidence of an acute intracranial process. Report Dictated on Final Dictating Physician: MD SOLANO JEFFREY Signed Date and Time: 10/26/2021 11:42 am Signed by: MD SOLANO JEFFREY Transcribed Date and Time: 10/26/2021 11:43 Normal [facility] EEG awake and asleepon 10-26 Bony Tompkins MD 10/26/2021 4:06 PM [facility] [address] [place] [id number] ROUTINE EEG REPORT Patient Name: Andrew Sifuetnes : 1950 Date of Study: 10/26/2021 Duration Recorded: 23 minutes EEG#: [id number] CORPORATE GENERAL MANAGER: CASTRO PROVIDER REQUESTING STUDY: Dr. Barreto REASON FOR EXAM: seizures HISTORY: Andrew Sifuentes is a 71 y.o. 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 At present patient is awake, follows commands, was able to tell his name, and that he was in hospital but not oriented to time. Per documentation patient had NCSE in May 2021, was on Vimpat, but it was discontinued as there was no evidence of recurrent seizures in July 2021 by Neurology at [facility], per daughter patient was on Dilantin for 31 yrs. Per daughter patient had seizures in the past and also felt he had staring episodes this morning. Per daughter patient has been essentially bed bound in [place] since May 2021 but prior to that [...] injection 105 mg 1 mg/kg SubCUTAneous BID May Cash MD 105 mg at 10/26/21 0839 TECHNICAL ASPECTS: This routine scalp EEG study with video was carried out at [facility]. Scalp electrodes were positioned in person by an photonics engineering technologist, following patient education, according to the 10-20 International system of electrode placement and maintained for integrity and quality of the recording. EEG data with video was recorded continuously and digitally stored. The photonics engineering technologist reviewed all automated detections and manual [...] No normal vari (more content not included)... [employer] Work Phone: [facility] Work Phone: No Panel Informationon 10-26 Radiology Study observation (narrative) [facility] Work Phone: Prothrombin Timeon 2 INR 1.9 High 0.9-1.1 [facility] Comment on above: Result Comment: Harry [...] Infarction Performed By: #### C OVAG #### [facility] [address] [place] [address] PT Coag (PPP) [Time] 19.7 s High 9.0-12.0 [facility] Comment on above: Result Comment: . Performed By: #### C OVAG #### [facility] [address] [place] [address] Protime-INRon 10-26-2021 INR Coag (Bld) [Relative time] 1.9 {INR} High [facility] Work Phone: Comment on above: Recommended Anticoag [...] Interpretation and review of laboratory results Abnormal [facility] Work Phone: PT Coag (PPP) [Time] 19.7 s High 9.0 - 12.0 s [facility] Work Phone: Comment on above: . Test Performed by [facility], [address], [place], [place] [address] [facility] Work Phone: CA 19-9on 10-25-2021 CA 19-9 17 U/mL Normal <=35 [facility] Work Phone: Comment on above: INTERPRETIVE INFORMA [...] or absence of malignant disease. Performed By: [facility] [address] [place] [address] Bowling Teacher: Quiana Castro MD Result Comment: INTE RPRETIVE [...] or absence of malignant disease. Performed By: [facility] [address] [place] [address] Bowling Teacher: Quiana Castro MD Performed By: #### C OVAG #### [facility] [address] [place] [address] Cancer Antigen 19-9on 2021 [facility] Work Phone: Prothrombin Timeon 2 INR 1.5 High 0.9-1.1 [facility] [employer] Comment on above: Result Comment: Harry mmended [...] Infarction Performed By: #### P T #### [facility] [address] [place] [address] PT Coag (PPP) [Time] 15.6 s High 9.0-12.0 [facility] Comment on above: Result Comment: . Performed By: #### P T #### [facility] [address] [place] [address] Protime-INRon 10-25-2021 INR Coag (Bld) [Relative time] 1.5 {INR} High [facility] Work Phone: Comment on above: Recommended Anticoag [...] Interpretation and review of laboratory results Abnormal [facility] Work Phone: PT Coag (PPP) [Time] 15.6 s High 9.0 - 12.0 s [employer] Work Phone: Comment on above: . Test Performed by [facility], [address], [place], [place] [address] [facility] Work Phone: B-2 Glycoprotein (IGA)on Beta-2 Glyco 1 IgA <2.0 U/mL [facility] Work Phone: Comment on above: Interpretive Informa tion: Results equal to or greater than 20 U/mL = POSITIVE Results less than 20 U/mL = NEGATIVE B2 Glycoprotein I (IgM) Abon 10-24-2021 Beta-2 Glyco 1 IgM <1.5 U/mL [facility] Work Phone: Comment on above: Interpretive Informa tion: Results equal to or greater than 20 U/mL = POSITIVE Results less than 20 U/mL = NEGATIVE B2 Glycoprotein I Igg Abon 0 10-24-2021 Beta-2 Glyco 1 IgG <1.4 U/mL [facility] Work Phone: Comment on above: Interpretive Informa tion: Results equal to or greater than 20 U/mL = POSITIVE Results less than 20 U/mL = NEGATIVE Basic Metabolic Panelon 10-06 Anion gap [Moles/Vol] 8 mmol/L Normal 3-13 [facility] Comment on above: Performed By: #### C A19O, LUPUS #### The performing lab is in the report. #### NSEO #### [facility] #### HEMDF, LDH3, BMP3, MG3, PT, CEA2 #### [address] [place] [address] #### B2GPM, B2GPA, B2GPG #### [address] Calcium [Mass/Vol] 8.8 mg/dL Normal 8.4-10.4 [facility] Comment on above: Performed By: #### C A19O, LUPUS #### The performing lab is in the report. #### NSEO #### [facility] #### HEMDF, LDH3, BMP3, MG3, PT, CEA2 #### [address] [place] [address] #### B2GPM, B2GPA, B2GPG #### [address] CO2 [Moles/Vol] 25 mmol/L Normal 22-30 [facility] Comment on above: Performed By: #### C A19O, LUPUS #### The performing lab is in the report. #### NSEO #### [facility] #### HEMDF, LDH3, BMP3, MG3, PT, CEA2 #### [address] [place] [address] #### B2GPM, B2GPA, B2GPG #### [address] Creatinine [Mass/Vol] 0.74 mg/dL Normal 0.52-1.25 [facility] Comment on above: Performed By: #### C A19O, LUPUS #### The performing lab is in the report. #### NSEO #### [facility] #### HEMDF, LDH3, BMP3, MG3, PT, CEA2 #### [place] [address] [place] [address] #### B2GPM, B2GPA, B2GPG #### [address] [phone] eGFR OTHER > 90.0 Normal >60 [facility] Comment on above: Result Comment: KDIG O [...] HEMDF, LDH3, BMP3, MG3, PT, CEA2 #### [address] [place], [place] #### B2GPM, B2GPA, B2GPG #### [address] [phone] GFR/1.73 sq M.predicted among blacks MDRD (S/P/Bld) [Vol rate/Area] mL/min/{1.73_m2} Normal >60 [facility] Comment on above: Performed By: #### C A19O, LUPUS #### The performing lab is in the report. #### NSEO #### [facility] #### HEMDF, LDH3, BMP3, MG3, PT, CEA2 #### [address] [place] [address] #### B2GPM, B2GPA, B2GPG #### [address] Glucose [Mass/Vol] 116 mg/dL High 70-100 [facility] Comment on above: Performed By: #### C A19O, LUPUS #### The performing lab is in the report. #### NSEO #### [facility] #### HEMDF, LDH3, BMP3, MG3, PT, CEA2 #### [facility] [address] [place] [address] #### B2GPM, B2GPA, B2GPG #### [address] Urea nitrogen [Mass/Vol] 19 mg/dL High 7-17 [facility] Comment on above: Performed By: #### C A19O, LUPUS #### The performing lab is in the report. #### NSEO #### [facility] #### HEMDF, LDH3, BMP3, MG3, PT, CEA2 #### [facility] [address] [place] [address] #### B2GPM, B2GPA, B2GPG #### [address] Chloride [Moles/Vol] 107 mmol/L Normal 98-107 [facility] Comment on above: Performed By: #### C A19O, LUPUS #### The performing lab is in the report. #### NSEO #### [facility] #### HEMDF, LDH3, BMP3, MG3, PT, CEA2 #### [facility] [address] [place] [address] #### B2GPM, B2GPA, B2GPG #### [address] Potassium [Moles/Vol] 3.9 mmol/L Normal 3.5-5.1 [facility] Comment on above: Performed By: #### C A19O, LUPUS #### The performing lab is in the report. #### NSEO #### [facility] #### HEMDF, LDH3, BMP3, MG3, PT, CEA2 #### [facility] [address] [place] [address] #### B2GPM, B2GPA, B2GPG #### [facility] [address] [place], [place] Sodium [Moles/Vol] 140 mmol/L Normal 135-145 [facility] Comment on above: Performed By: #### C A19O, LUPUS #### The performing lab is in the report. #### NSEO #### [facility] #### HEMDF, LDH3, BMP3, MG3, PT, CEA2 #### [facility] [address] [place] [address] #### B2GPM, B2GPA, B2GPG #### [facility] [address] [place], [place] Anion gap [Moles/Vol] 8 mmol/L 3 - 13 mmol/L [facility] Calcium [Mass/Vol] 8.8 mg/dL 8.4 - 10. 4 mg/dL [facility] Chloride [Moles/Vol] 107 mmol/L 98 - 10 7 mmol/L [facility] CO2 [Moles/Vol] 25 mmol/L 22 - 30 mmol/L [facility] Creatinine [Mass/Vol] 0.74 mg/dL 0.52 - 1.25 mg/dL [facility] EGFR IF NonAfrican Belizean >90.0 >60 mL/min [facility] Comment on above: KDIGO guidelines pro vide [...] 116 mg/dL High 70 - 100 mg/dL [facility] Interpretation and review of laboratory results Abnormal [facility] Potassium [Moles/Vol] 3.9 mmol/L 3.5 - 5.1 mmol/L [facility] Sodium [Moles/Vol] 140 mmol/L 135 - 145 mmol/L [facility] Urea nitrogen (BldV) [Mass/Vol] 19 mg/dL High 7 - 17 mg/dL [facility] Test Performed by [facility], [address] LAB [facility] Beta-2 Glycoprotein I IgAon 10-24-2021 Beta-2 Glycoprotein I IgA < 2.0 Normal [facility] Comment on above: Result Comment: Inte rpretive Information: Results equal to or greater than 20 U/mL = POSITIVE Results less than 20 U/mL = NEGATIVE Performed By: #### C OVAG #### [facility] [address] [place] [address] Beta-2 Glycoprotein I IgGon 10-24-2021 Beta-2 Glycoprotein I IgG < 1.4 Normal [facility] Comment on above: Result Comment: Inte rpretive Information: Results equal to or greater than 20 U/mL = POSITIVE Results less than 20 U/mL = NEGATIVE Performed By: #### C OVAG #### [facility] [address] [place] [address] Beta-2 Glycoprotein I IgMon 10-24-2021 Beta-2 Glycoprotein I IgM < 1.5 Normal [facility] Comment on above: Result Comment: Inte rpretive Information: Results equal to or greater than 20 U/mL = POSITIVE Results less than 20 U/mL = NEGATIVE Performed By: #### C OVAG #### [facility] [address] [place] [address] No Panel Informationon 10-24 [facility] Test Performed by [facility], [address] [place] [address] [facility] Work Phone: PROTEIN C FUNCTIONALon 10-24 Interpretation and review of laboratory results Abnormal [facility] Protein C-Functional 185 % High 83 - 168 % [place] Comment on above: INTERPRETIVE INFORMA TION: Protein [...] reference intervals for this test in the [facility] Test Directory ([employer] Performed by [facility], [address] [facility],[place] [id number] [email or web address] Quiana Castro MD - Lab. Director Protein C, Functionalon 10-06 Protein C, Functional 185 % High 83-168 [facility] Comment on above: Result Comment: INTE RPRETIVE [...] reference intervals for this test in the [employer] [facility] Test Directory ([employer] Performed by [facility], [address] [facility],[place] [id number] [employer] Quiana Castro MD - Lab. Director Performed By: #### P T #### [facility] [address] [place] [address] Protein S, Functionalon 10-06 Protein S, Functional 138 % Normal 66-143 [facility] Comment on above: INTERPRETIVE INFORMA TION: [...] reference intervals for this test in the [employer] Test Directory ([employer] Performed by [facility], [address] [facility],[place] [id number] www.[employer] Quiana Castro MD - Lab. Director Result [...] reference intervals for this test in the [employer] [facility] Test Directory ([employer] Performed by [facility], [address] [facility],[place] [id number] [employer] Quiana Castro MD - Lab. Director Performed By: #### P T #### [facility] [employer] [address] [place] [address] Prothrombin Timeon 2 INR 1.2 High 0.9-1.1 [facility] [employer] Comment on above: Result Comment: Harry mmended [...] HEMDF, LDH3, BMP3, MG3, PT, CEA2 #### [facility] [address] [place] [address] #### B2GPM, B2GPA, B2GPG #### [facility] [address] [place] [id number] PT Coag (PPP) [Time] 12.6 s High 9.0-12.0 [facility] Comment on above: Result Comment: . Performed By: #### C A19O, LUPUS #### The performing lab is in the report. #### NSEO #### [facility] #### HEMDF, LDH3, BMP3, MG3, PT, CEA2 #### [facility] [address] [place] [address] #### B2GPM, B2GPA, B2GPG #### [facility] [address] [place] [address] Protime-INRon 10-24-2021 INR Coag (Bld) [Relative time] 1.2 {INR} High [facility] Comment on above: Recommended Anticoag ulant Therapy: [...] Interpretation and review of laboratory results Abnormal [facility] PT Coag (PPP) [Time] 12.6 s High 9.0 - 12.0 s [facility] Comment on above: . Test Performed by [facility], [address], [place], [place] [address] [place] [address] LAB [facility] Basic Metabolic Panelon 10-05 Anion gap [Moles/Vol] 10 mmol/L Normal 3-13 [facility] Comment on above: Performed By: #### C A19O, LUPUS #### The performing lab is in the report. #### NSEO #### [facility] #### HEMDF, LDH3, BMP3, MG3, PT, CEA2 #### [facility] [address] [place] [address] #### B2GPM, B2GPA, B2GPG #### [address] [phone] Calcium [Mass/Vol] 9.6 mg/dL Normal 8.4-10.4 [facility] Comment on above: Performed By: #### C A19O, LUPUS #### The performing lab is in the report. #### NSEO #### [facility] #### HEMDF, LDH3, BMP3, MG3, PT, CEA2 #### [facility] [address] [place] [address] #### B2GPM, B2GPA, B2GPG #### [address] CO2 [Moles/Vol] 27 mmol/L Normal 22-30 [facility] Comment on above: Performed By: #### C A19O, LUPUS #### The performing lab is in the report. #### NSEO #### [facility] #### HEMDF, LDH3, BMP3, MG3, PT, CEA2 #### [facility] [address] [place] [address] #### B2GPM, B2GPA, B2GPG #### [address] Glucose [Mass/Vol] 109 mg/dL High 70-100 [facility] Comment on above: Performed By: #### C A19O, LUPUS #### The performing lab is in the report. #### NSEO #### [facility] #### HEMDF, LDH3, BMP3, MG3, PT, CEA2 #### [facility] [address] [place] [address] #### B2GPM, B2GPA, B2GPG #### [address] Urea nitrogen [Mass/Vol] 18 mg/dL High 7-17 [facility] Comment on above: Performed By: #### C A19O, LUPUS #### The performing lab is in the report. #### NSEO #### [facility] #### HEMDF, LDH3, BMP3, MG3, PT, CEA2 #### [facility] [address] [place] [address] #### B2GPM, B2GPA, B2GPG #### [address] Creatinine [Mass/Vol] 0.82 mg/dL Normal 0.52-1.25 [facility] Comment on above: Performed By: #### C A19O, LUPUS #### The performing lab is in the report. #### NSEO #### [facility] #### HEMDF, LDH3, BMP3, MG3, PT, CEA2 #### [place] [address] [place] #### B2GPM, B2GPA, B2GPG #### [address] GFR/1.73 sq M.predicted among blacks MDRD (S/P/Bld) [Vol rate/Area] mL/min/{1.73_m2} Normal >60 [facility] Comment on above: Performed By: #### C A19O, LUPUS #### The performing lab is in the report. #### NSEO #### [facility] #### HEMDF, LDH3, BMP3, MG3, PT, CEA2 #### [place] [address] [place] [address] #### B2GPM, B2GPA, B2GPG #### [address] GFR/1.73 sq M.predicted among non-blacks MDRD (S/P/Bld) [Vol rate/Area] 89.9 mL/min/{1.73_m2} Normal >60 [facility] Comment on above: Result Comment: KDIG O [...] HEMDF, LDH3, BMP3, MG3, PT, CEA2 #### [facility] [address] [place] [address] #### B2GPM, B2GPA, B2GPG #### [address] Chloride [Moles/Vol] 104 mmol/L Normal 98-107 [facility] Comment on above: Performed By: #### C Sena9O, LUPUS #### The performing lab is in the report. #### NSEO #### [facility] #### HEMDF, LDH3, BMP3, MG3, PT, CEA2 #### [facility] [address] [place] [address] #### B2GPM, B2GPA, B2GPG #### [address] Potassium [Moles/Vol] 3.9 mmol/L Normal 3.5-5.1 [facility] Comment on above: Performed By: #### C A19O, LUPUS #### The performing lab is in the report. #### NSEO #### [facility] #### HEMDF, LDH3, BMP3, MG3, PT, CEA2 #### [facility] [address] [place] [address] #### B2GPM, B2GPA, B2GPG #### [address] [phone] Sodium [Moles/Vol] 142 mmol/L Normal 135-145 [facility] Comment on above: Performed By: #### C A19O, LUPUS #### The performing lab is in the report. #### NSEO #### [facility] #### HEMDF, LDH3, BMP3, MG3, PT, CEA2 #### [facility] [address] [place] [address] #### B2GPM, B2GPA, B2GPG #### [facility] [address] [place] [address] Anion gap [Moles/Vol] 10 mmol/L 3 - 13 mmol/L [facility] Work Phone: Calcium [Mass/Vol] 9.6 mg/dL 8.4 - 10. 4 mg/dL [employer] Work Phone: Chloride [Moles/Vol] 104 mmol/L 98 - 10 7 mmol/L [facility] Work Phone: CO2 [Moles/Vol] 27 mmol/L 22 - 30 mmol/L [facility] Work Phone: Creatinine [Mass/Vol] 0.82 mg/dL 0.52 - 1.25 mg/dL [employer] Work Phone: EGFR IF NonAfrican Bel[place]an 89.9 mL/min >60 [facility] Work Phone: Comment on above: KDIGO guidelines pro vide [...] MDRD (S/P/Bld) [Vol rate/Area] mL/min/{1.73_m2} >60 mL/min [employer] Work Phone: 1 222 Glucose [Mass/Vol] 109 mg/dL High 70 - 100 mg/dL [employer] Work Phone: 1 222 Interpretation and review of laboratory results Abnormal [employer] Work Phone: ) 222 Potassium [Moles/Vol] 3.9 mmol/L 3.5 - 5.1 mmol/L [facility] Work Phone: ) 222 Sodium [Moles/Vol] 142 mmol/L 135 - 145 mmol/L [facility] Work Phone: 1) 222 Urea nitrogen (BldV) [Mass/Vol] 18 mg/dL High 7 - 17 mg/dL [employer] Work Phone: 222 CBC with Auto Differentialon 10-23-2021 Absolute Baso # 0.1 10*3/uL 0.0 - 0.2 10*3/uL [employer] Work Phone: ) 222 Absolute Neut # 6.6 10*3/uL 1.8 - 7.0 10*3/uL [employer] Work Phone: ) 222 Basophils/100 WBC (Bld) 1.1 % 0.0 - 2.0 % [facility] Work [facility]: 1 222 Eosinophils (Bld) [#/Vol] 0.4 10*3/uL 0.0 - 0.5 10*3/uL [employer] Work Phone: ) 222 Eosinophils/100 WBC (Bld) 3.9 % 1.0 - 6.0 % [employer] Work Phone: ) 222 Granulocytes/100 WBC (Bld) 64.0 % 40.0 - 80.0 % [employer] Work Phone: 1 222 Hematocrit (Bld) [Volume fraction] 35.1 % Low 40.0 - 52.0 % [facility] Work [facility]: 222 Hemoglobin (Bld) [Mass/Vol] 11.6 g/dL Low 13.0 - 18.0 g/dL [employer] Work Phone: [phone] Interpretation and review of laboratory results Abnormal [facility] Work Phone: 1() 222 Lymphocytes (Bld) [#/Vol] 2.6 10*3/uL 1.0 - 4.3 10*3/uL [facility] Work Phone: 1) 222 Lymphocytes/100 WBC (Bld) 25.0 % 20.0 - 40.0 % [facility] Work Phone: () 222 MCH (RBC) [Entitic mass] 28.4 pg 26.0 - 34.0 pg [facility] Work Phone: 1) 222 MCHC (RBC) [Mass/Vol] 33.1 % 32.0 - 36.0 % [facility] Work Phone: 1() 222 MCV (RBC) [Entitic vol] 85.9 fL 80.0 - 98.0 fL [facility] Work Phone: ) 222 Monocytes (Bld) [#/Vol] 0.6 10*3/uL 0.0 - 0.8 10*3/uL [facility] Work Phone: ) 222 Monocytes/100 WBC (Bld) 6.0 % 2.0 - 10.0 % [facility] Work Phone: 1() 222 Platelet distribution width (Bld) [Ratio] 17.4 % High 11.5 - 14.5 % [employer] Phone: Platelet mean volume (Bld) [Entitic vol] 8.1 fL 7.4 - 12.4 fL [employer] Phone: ) 222 Comment on above: MPV is a calculated measurement using platelet volume ratio. Platelets (Bld) [#/Vol] 450 10*3/uL High 140 - 440 10*3/uL [facility] Work Phone: 1() 222 RBC (Bld) [#/Vol] 4.08 10*6/uL Low 4.40 - 5.9 0 10*6/uL [facility] Work Phone: () 222 WBC (Bld) [#/Vol] 10.3 10*3/uL 3.6 - 10.7 10*3/uL [facility] Work Phone: 1() 222 Test Performed by [facility], [address] [place], [place] [id number] [place] [address] LAB [facility] Work Phone: CEAon 10-23-2021 CEA 0.8 ng/mL 0.0 - 3.0 ng/mL [facility] Work Phone: Test Performed by [facility], [address] [place] LAB [facility] Work Phone: Carcinoembryonic Agon 2021 Carcinoembryonic Ag. 0.8 ng/mL Normal 0.0-3.0 [facility] Comment on above: Performed By: #### C A19O, LUPUS #### The performing lab is in the report. #### NSEO #### [facility] #### HEMDF, LDH3, BMP3, MG3, PT, CEA2 #### [facility] [address] [place] [address] #### B2GPM, B2GPA, B2GPG #### [address] Hemogram w/ Autodiffon 10-23 Abs Baso Cnt 0.1 10*3/uL Normal 0.0-0.2 [facility] Comment on above: Performed By: #### C A19O, LUPUS #### The performing lab is in the report. #### NSEO #### [facility] #### HEMDF, LDH3, BMP3, MG3, PT, CEA2 #### [facility] [address] [place] [address] #### B2GPM, B2GPA, B2GPG #### [address] Abs Neutrophile Cnt 6.6 10*3/uL Normal 1.8-7.0 [facility] Comment on above: Performed By: #### C A19O, LUPUS #### The performing lab is in the report. #### NSEO #### [facility] #### HEMDF, LDH3, BMP3, MG3, PT, CEA2 #### [facility] [address] [place] #### B2GPM, B2GPA, B2GPG #### [address] Basophils/100 WBC (Bld) 1.1 % Normal 0.0-2.0 [facility] Comment on above: Performed By: #### C A19O, LUPUS #### The performing lab is in the report. #### NSEO #### [facility] #### HEMDF, LDH3, BMP3, MG3, PT, CEA2 #### [address] [place] #### B2GPM, B2GPA, B2GPG #### [address] Eosinophils (Bld) [#/Vol] 0.4 10*3/uL Normal 0.0-0.5 [facility] Comment on above: Performed By: #### C A19O, LUPUS #### The performing lab is in the report. #### NSEO #### [facility] #### HEMDF, LDH3, BMP3, MG3, PT, CEA2 #### [address] [place] #### B2GPM, B2GPA, B2GPG #### [address] Eosinophils/100 WBC (Bld) 3.9 % Normal 1.0-6.0 [facility] Comment on above: Performed By: #### C A19O, LUPUS #### The performing lab is in the report. #### NSEO #### [facility] #### HEMDF, LDH3, BMP3, MG3, PT, CEA2 #### [address] [place] #### B2GPM, B2GPA, B2GPG #### [address] Erythrocyte distribution width (RBC) [Ratio] 17.4 % High 11.5-14.5 [facility] Comment on above: Performed By: #### C A19O, LUPUS #### The performing lab is in the report. #### NSEO #### [facility] #### HEMDF, LDH3, BMP3, MG3, PT, CEA2 #### [facility] [address] [place] [address] #### B2GPM, B2GPA, B2GPG #### [address] Granulocytes/100 WBC (Bld) 64.0 % Normal 40.0-80.0 [facility] Comment on above: Performed By: #### C A19O, LUPUS #### The performing lab is in the report. #### NSEO #### [facility] #### HEMDF, LDH3, BMP3, MG3, PT, CEA2 #### [facility] [address] [place] #### B2GPM, B2GPA, B2GPG #### [address] Hematocrit (Bld) [Volume fraction] 35.1 % Low 40.0-52.0 [facility] Comment on above: Performed By: #### C A19O, LUPUS #### The performing lab is in the report. #### NSEO #### [facility] #### HEMDF, LDH3, BMP3, MG3, PT, CEA2 #### [facility] [address] [place], [place] #### B2GPM, B2GPA, B2GPG #### [address] Hemoglobin (Bld) [Mass/Vol] 11.6 g/dL Low 13.0-18.0 [facility] Comment on above: Performed By: #### C A19O, LUPUS #### The performing lab is in the report. #### NSEO #### [facility] #### HEMDF, LDH3, BMP3, MG3, PT, CEA2 #### [facility] [address] [place] #### B2GPM, B2GPA, B2GPG #### [address] Lymphocytes (Bld) [#/Vol] 2.6 10*3/uL Normal 1.0-4.3 [facility] Comment on above: Performed By: #### C A19O, LUPUS #### The performing lab is in the report. #### NSEO #### [facility] #### HEMDF, LDH3, BMP3, MG3, PT, CEA2 #### [facility] [address] [place] #### B2GPM, B2GPA, B2GPG #### [address] Lymphocytes/100 WBC (Bld) 25.0 % Normal 20.0-40.0 [facility] Comment on above: Performed By: #### C A19O, LUPUS #### The performing lab is in the report. #### NSEO #### [facility] #### HEMDF, LDH3, BMP3, MG3, PT, CEA2 #### [facility] [address] [facility] [place] #### B2GPM, B2GPA, B2GPG #### [address] MCH (RBC) [Entitic mass] 28.4 pg Normal 26.0-34.0 [facility] Comment on above: Performed By: #### C A19O, LUPUS #### The performing lab is in the report. #### NSEO #### [facility] #### HEMDF, LDH3, BMP3, MG3, PT, CEA2 #### [facility] [address] [place], [place] #### B2GPM, B2GPA, B2GPG #### [address] MCHC 33.1 % Normal 32.0-36.0 [facility] Comment on above: Performed By: #### C A19O, LUPUS #### The performing lab is in the report. #### NSEO #### [facility] #### HEMDF, LDH3, BMP3, MG3, PT, CEA2 #### [facility] [address] [place], [place] #### B2GPM, B2GPA, B2GPG #### [address] MCV (RBC) [Entitic vol] 85.9 fL Normal 80.0-98.0 [facility] Comment on above: Performed By: #### C A19O, LUPUS #### The performing lab is in the report. #### NSEO #### [facility] #### HEMDF, LDH3, BMP3, MG3, PT, CEA2 #### [facility] [address] [place], [place] #### B2GPM, B2GPA, B2GPG #### [address] Monocytes (Bld) [#/Vol] 0.6 10*3/uL Normal 0.0-0.8 [facility] Comment on above: Performed By: #### C A19O, LUPUS #### The performing lab is in the report. #### NSEO #### [facility] #### HEMDF, LDH3, BMP3, MG3, PT, CEA2 #### [facility] [address] [place], [place] #### B2GPM, B2GPA, B2GPG #### [address] Monocytes/100 WBC (Bld) 6.0 % Normal 2.0-10.0 [facility] Comment on above: Performed By: #### C A19O, LUPUS #### The performing lab is in the report. #### NSEO #### [facility] #### HEMDF, LDH3, BMP3, MG3, PT, CEA2 #### [facility] [address] [place] #### B2GPM, B2GPA, B2GPG #### [address] Platelet mean volume (Bld) [Entitic vol] 8.1 fL Normal 7.4-12.4 [facility] Comment on above: Result Comment: MPV is a calculated measurement using platelet volume ratio. Performed By: #### C A19O, LUPUS #### The performing lab is in the report. #### NSEO #### [facility] #### HEMDF, LDH3, BMP3, MG3, PT, CEA2 #### [address] [place] #### B2GPM, B2GPA, B2GPG #### [address] Platelets (Bld) [#/Vol] 450 10*3/uL High 140-440 [facility] Comment on above: Performed By: #### C A19O, LUPUS #### The performing lab is in the report. #### NSEO #### [facility] #### HEMDF, LDH3, BMP3, MG3, PT, CEA2 #### [address] [place] #### B2GPM, B2GPA, B2GPG #### [address] RBC (Bld) [#/Vol] 4.08 10*6/uL Low 4.40-5.90 [facility] Comment on above: Performed By: #### C A19O, LUPUS #### The performing lab is in the report. #### NSEO #### [facility] #### HEMDF, LDH3, BMP3, MG3, PT, CEA2 #### [address] [place] #### B2GPM, B2GPA, B2GPG #### [facility] [address] [place] [address] WBC (Bld) [#/Vol] 10.3 10*3/uL Normal 3.6-10.7 [facility] Comment on above: Performed By: #### C A19O, LUPUS #### The performing lab is in the report. #### NSEO #### [facility] #### HEMDF, LDH3, BMP3, MG3, PT, CEA2 #### [facility] [address] [place] [address] #### B2GPM, B2GPA, B2GPG #### [address] [address] LDHon 10-23-2021 LDH 136 U/L Normal 120-246 [facility] Comment on above: Performed By: #### C A19O, LUPUS #### The performing lab is in the report. #### NSEO #### [facility] #### HEMDF, LDH3, BMP3, MG3, PT, CEA2 #### [facility] [address] [place] [address] #### B2GPM, B2GPA, B2GPG #### [address] [address] Lactate Dehydrogenaseon 06- LD 136 U/L 120 - 246 U/L [facility] Work Phone: MRI ABDOMEN WO CONTRASTon Patient Name: ANDREW SIFUENTES Magnetic Resonance Imaging ACCESSION EXAM DATE/TIME PROCEDURE ORDERING PROVIDER [id number] 10/23/2021 11:08 EDT MRI Abdomen w/o Contrast WING SRIVASTAVA CPT code 53473 Reason For Exam (MRI Abdomen w/o Contrast) [...] Imaging ACCESSION EXAM DATE/TIME PROCEDURE ORDERING PROVIDER [id number] 10/23/2021 11:08 EDT MRI Abdomen w/o Contrast WING SRIVASTAVA CPT code 01640 Reason For Exam (MRI Abdomen w/o Contrast) [...] VLADIMIR Transcribed Date and Time: 10/23/2021 4:36 [facility] Work [facility]: MRI ABDOMEN WO CONTRASTOrder ed By: Unknown Result on 10-23-2021 [facility] MRI Abdomen w/o Contraston 0 10-23-2021 MRI Abdomen w/o Contrast Patient Name: ANDREW SIFUENTES Magnetic Resonance Imaging ACCESSION EXAM DATE/TIME PROCEDURE ORDERING PROVIDER [id number] 10/23/2021 11:08 EDT MRI Abdomen w/o Contrast DONOVAN SRIVASTAVAW CPT code 32652 Reason For Exam (MRI Abdomen w/o Contrast) [...] Transcribed Date and Time: 10/23/2021 4:36 Normal [facility] Magnesiumon 10-23-2021 Magnesium [Mass/Vol] 2.1 mg/dL Normal 1.6-2.3 [facility] Comment on above: Performed By: #### C A19O, LUPUS #### The performing lab is in the report. #### NSEO #### [facility] #### HEMDF, LDH3, BMP3, MG3, PT, CEA2 #### [facility] [address] [place] [address] #### B2GPM, B2GPA, B2GPG #### [address] Magnesium [Mass/Vol] 2.1 mg/dL 1.6 - 2 .3 mg/dL [facility] Work Phone: No Panel Informationon 10-23 Test Performed by [facility], [address] [place], [place] [id number] [place] [address] LAB [facility] Work Phone: Prothrombin Timeon INR 1.1 Normal 0.9-1.1 [facility] Comment on above: Result Comment: Harry [...] prevent Myocardial Infarction Performed By: #### C A1Derrek LUPUS #### The performing lab is in the report. #### NSEO #### [facility] #### HEMDF, LDH3, BMP3, MG3, PT, CEA2 #### [address] [place] [address] #### B2GPM, B2GPA, B2GPG #### [address] [address] PT Coag (PPP) [Time] 12.2 s High 9.0-12.0 [facility] Comment on above: Result Comment: . Performed By: #### C A19O, LUPUS #### The performing lab is in the report. #### NSEO #### [facility] #### HEMDF, LDH3, BMP3, MG3, PT, CEA2 #### [place] [address] [place] [address] #### B2GPM, B2GPA, B2GPG #### [facility] [address] [place] [address] Protime-INRon 10-23-2021 INR Coag (Bld) [Relative time] 1.1 {INR} [facility] Work Phone: Comment on above: Recommended Anticoag [...] Interpretation and review of laboratory results Abnormal [facility] Work Phone: PT Coag (PPP) [Time] 12.2 s High 9.0 - 12.0 s [facility] Work Phone: Comment on above: . Test Performed by [facility], [address] [place], [place] [address] [facility] LAB [facility] Work Phone: Basic Metabolic Panelon 10-05 Calcium [Mass/Vol] 8.9 mg/dL Normal 8.4-10.4 [facility] Comment on above: Performed By: #### P T #### [facility] [address] [place] [address] Glucose [Mass/Vol] 110 mg/dL High 70-100 [facility] Comment on above: Performed By: #### P T #### [facility] [address] [place] [address] Urea nitrogen [Mass/Vol] 14 mg/dL Normal 7-17 [facility] Comment on above: Performed By: #### P T #### [facility] [address] [place] [address] Anion gap [Moles/Vol] 7 mmol/L Normal 3-13 [facility] Comment on above: Performed By: #### P T #### [facility] [address] [place] [address] CO2 [Moles/Vol] 26 mmol/L Normal 22-30 [facility] Comment on above: Performed By: #### P T #### [facility] [address] [place] [address] Creatinine [Mass/Vol] 0.71 mg/dL Normal 0.52-1.25 [facility] Comment on above: Performed By: #### P T #### [facility] [address] [place] [address] eGFR OTHER > 90.0 Normal >60 [facility] Comment on above: Result Comment: KDIG O [...] secretion. Performed By: #### P T #### [facility] [address] [place] [address] GFR/1.73 sq M.predicted among blacks MDRD (S/P/Bld) [Vol rate/Area] mL/min/{1.73_m2} Normal >60 [facility] Comment on above: Performed By: #### P T #### [facility] [address] [place] [address] Potassium [Moles/Vol] 3.8 mmol/L Normal 3.5-5.1 [facility] Comment on above: Performed By: #### P T #### [facility] [address] [place] [address] Chloride [Moles/Vol] 106 mmol/L Normal 98-107 [facility] Comment on above: Performed By: #### P T #### [facility] [address] [place] [address] Sodium [Moles/Vol] 139 mmol/L Normal 135-145 [facility] Comment on above: Performed By: #### P T #### [facility] [address] [place] [address] Anion gap [Moles/Vol] 7 mmol/L 3 - 13 mmol/L [facility] Calcium [Mass/Vol] 8.9 mg/dL 8.4 - 10. 4 mg/dL [facility] Chloride [Moles/Vol] 106 mmol/L 98 - 10 7 mmol/L [facility] CO2 [Moles/Vol] 26 mmol/L 22 - 30 mmol/L [facility] Creatinine [Mass/Vol] 0.71 mg/dL 0.52 - 1.25 mg/dL [facility] EGFR IF NonAfrican Bel[place]an >90.0 >60 mL/min [facility] Comment on above: [...] - 10.7 10*3/uL [facility] Test Performed by [facility], [address] [place], [place] [id number] [place] [address] [facility] [address] [facility] Pelvis Wo Contras ton 10-22-2021 Patient Name: ANDREW SIFUENTES Computed Tomography ACCESSION EXAM DATE/TIME PROCEDURE ORDERING PROVIDER [id number] 10/22/2021 13:[address] Abdomen/Pelvis (No SRIVASTAVA, WING PO, No IV) CPT code 38591 Reason For Exam (CT Abdomen/Pelvis (No PO, [...] HARLAN Transcribed Date and Time: 10/22/2021 2:37 [facility] Humphrey Melton MD - 10/22/2021 Patient Name: ANDREW SIFUENTES Computed Tomography ACCESSION EXAM DATE/TIME PROCEDURE ORDERING PROVIDER [id number] 10/22/2021 13:[address] Abdomen/Pelvis (No SRIVASTAVA, WING PO, No IV) CPT code 06479 Reason For Exam (CT Abdomen/Pelvis (No PO, [...] Tomography ACCESSION EXAM DATE/TIME PROCEDURE ORDERING PROVIDER [id number] 10/22/2021 13:[address] Abdomen/Pelvis (No SRIVASTAVA, WING PO, No IV) CPT code 66879 Reason For Exam (CT Abdomen/Pelvis (No PO, [...] Transcribed Date and Time: 10/22/2021 2:37 Normal [facility] Hemogram w/ Autodiffon 10-22 Abs Baso Cnt 0.1 10*3/uL Normal 0.0-0.2 [facility] Comment on above: Performed By: #### P T #### [facility] [address] [place] [address] Abs Neutrophile Cnt 6.0 10*3/uL Normal 1.8-7.0 [facility] Comment on above: Performed By: #### P T #### [facility] [address] [place] [address] Basophils/100 WBC (Bld) 1.0 % Normal 0.0-2.0 [facility] Comment on above: Performed By: #### P T #### [facility] [address] [place] [address] Eosinophils (Bld) [#/Vol] 0.3 10*3/uL Normal 0.0-0.5 [facility] Comment on above: Performed By: #### P T #### [facility] [address] [place] [address] Eosinophils/100 WBC (Bld) 3.0 % Normal 1.0-6.0 [facility] Comment on above: Performed By: #### P T #### [facility] [address] [place] [address] Erythrocyte distribution width (RBC) [Ratio] 17.1 % High 11.5-14.5 [facility] Comment on above: Performed By: #### P T #### [facility] [address] [place] [address] Granulocytes/100 WBC (Bld) 64.1 % Normal 40.0-80.0 [facility] Comment on above: Performed By: #### P T #### [facility] [address] [place] [address] Hematocrit (Bld) [Volume fraction] 33.4 % Low 40.0-52.0 [facility] Comment on above: Performed By: #### P T #### [facility] [address] [place] [address] Hemoglobin (Bld) [Mass/Vol] 10.9 g/dL Low 13.0-18.0 [facility] Comment on above: Performed By: #### P T #### [place] [address] [place] [address] Lymphocytes (Bld) [#/Vol] 2.5 10*3/uL Normal 1.0-4.3 [facility] Comment on above: Performed By: #### P T #### [facility] [address] [place] [address] Lymphocytes/100 WBC (Bld) 26.3 % Normal 20.0-40.0 [facility] Comment on above: Performed By: #### P T #### [facility] [address] [place] [address] MCH (RBC) [Entitic mass] 28.2 pg Normal 26.0-34.0 [facility] Comment on above: Performed By: #### P T #### [facility] [address] [place] [address] MCHC 32.7 % Normal 32.0-36.0 [facility] Comment on above: Performed By: #### P T #### [facility] [address] [place] [address] MCV (RBC) [Entitic vol] 86.3 fL Normal 80.0-98.0 [facility] Comment on above: Performed By: #### P T #### [facility] [address] [place] [address] Monocytes (Bld) [#/Vol] 0.5 10*3/uL Normal 0.0-0.8 [facility] Comment on above: Performed By: #### P T #### [facility] [address] [place] [address] Monocytes/100 WBC (Bld) 5.6 % Normal 2.0-10.0 [facility] Comment on above: Performed By: #### P T #### [facility] [address] [place] [address] Platelet mean volume (Bld) [Entitic vol] 7.6 fL Normal 7.4-12.4 [facility] Comment on above: Result Comment: MPV is a calculated measurement using platelet volume ratio. Performed By: #### P T #### [facility] [address] [place] [address] Platelets (Bld) [#/Vol] 369 10*3/uL Normal 140-440 [facility] Comment on above: Performed By: #### P T #### [facility] [address] [place] [address] RBC (Bld) [#/Vol] 3.87 10*6/uL Low 4.40-5.90 [facility] Comment on above: Performed By: #### P T #### [facility] [address] [place] [address] WBC (Bld) [#/Vol] 9.4 10*3/uL Normal 3.6-10.7 [facility] Comment on above: Performed By: #### P T #### [facility] [address] [place] [address] Magnesiumon 10-22-2021 Magnesium [Mass/Vol] 2.0 mg/dL Normal 1.6-2.3 [facility] Comment on above: Performed By: #### P T #### [facility] [address] [place] [address] Magnesium [Mass/Vol] 2.0 mg/dL 1.6 - 2 .3 mg/dL [facility] No Panel Informationon 10-22 Radiology Study observation (narrative) [facility] Work Phone: Test Performed by [facility], [address] [place], [place], [place] [id number] [place] [address] LAB [facility] Prothrombin Timeon 2 INR 1.1 Normal 0.9-1.1 [facility] Comment on above: Result Comment: Harry [...] HEMDF, LDH3, BMP3, MG3, PT, CEA2 #### [facility] [address] [place] [address] #### B2GPM, B2GPA, B2GPG #### [address] [id number] PT Coag (PPP) [Time] 11.8 s Normal 9.0-12.0 [facility] Comment on above: Result Comment: . Performed By: #### C A19O, LUPUS #### The performing lab is in the report. #### NSEO #### [facility] #### HEMDF, LDH3, BMP3, MG3, PT, CEA2 #### [facility] [address] [place] [address] #### B2GPM, B2GPA, B2GPG #### [address] [address] Protime-INRon 10-22-2021 INR Coag (Bld) [Relative time] 1.1 {INR} [facility] Work Phone: Comment on above: Recommended Anticoag [...] [Time] 11.8 s 9.0 - 12.0 s [employer] Work Phone: Comment on above: . Test Performed by [facility], [address] [place], [place] [id number] [place] [address] LAB [facility] Work Phone: VL Ankle Art Brachial Indice s Extremity Bilateralon 10-22-2021 [facility] Ankle Brachial Index Report Patient RADHA Sifuentes: 1950 Study 10/21/2021 Name: Andrew Gonzalez (71yrs) Date: Age: 71 Account: [id number] Gender: M Loc: 444W BP: Ordering Physician: Shruthi Malik Bank Worker: Rody Cross RDMS, RVT Interpreting Physician: Carina Call Location: [facility] Indications: Foot wounds. Originally ordered as a full PVR. Ordering FAST FOOD SALES ASSISTANT had to modify the order to ABIs [...] supine position. Images were obtained using a [employer] vascular ultrasound machine. Arterial pressure indices: + [...] electronically signed by Carina Call 10/22/2021 13:21 [facility] C[facility] Carina Call MD - 10/22/2021 [facility] Ankle Brachial Index Report Patient DO GurpreetB: 1950 Study 10/21/2021 Name: Andrew Gonzalez (71yrs) Date: Age: 71 Account: [id number] Gender: M Loc: 444W BP: Ordering Physician: Shruthi Malik Bank Worker: Rody Cross RDMS, RVT Interpreting Physician: Carina Call Location: [facility] Indications: Foot wounds. Originally ordered as a full PVR. Ordering FAST FOOD SALES ASSISTANT had to modify the order to ABIs [...] supine position. Images were obtained using a [employer] vascular ultrasound machine. Arterial pressure indices: + [...] electronically signed by Carina Call 10/22/2021 13:21 [facility] Work Phone: [facility] Work Phone: Basic Metabolic Panelon 10-05 Calcium [Mass/Vol] 9.1 mg/dL Normal 8.4-10.4 [facility] Comment on above: Performed By: #### C OVAG #### [employer] [facility] [address] [place] [address] Anion gap [Moles/Vol] 6 mmol/L Normal 3-13 [facility] Comment on above: Performed By: #### C OVAG #### [employer] [address] [place] [address] CO2 [Moles/Vol] 29 mmol/L Normal 22-30 [facility] Comment on above: Performed By: #### C OVAG #### Honey [address] [place] [address] Creatinine [Mass/Vol] 0.90 mg/dL Normal 0.52-1.25 [facility] Comment on above: Performed By: #### C OVAG #### Honey [address] [place] [address] GFR/1.73 sq M.predicted among blacks MDRD (S/P/Bld) [Vol rate/Area] mL/min/{1.73_m2} Normal >60 [facility] Comment on above: Performed By: #### C OVAG #### [employer] [facility] [address] [place] [address] GFR/1.73 sq M.predicted among non-blacks MDRD (S/P/Bld) [Vol rate/Area] 86.6 mL/min/{1.73_m2} Normal >60 [facility] Comment on above: Result Comment: KDIG O [...] serum creatinine in children is the Bedside Meidna equation. It is less accurate in patients with extremes of muscle mass, restriction of dietary protein, ingestion of creatine, extra-renal metabolism of creatinine, or treatment with medications that affect renal tubular creatinine secretion. Performed By: #### C OVAG #### [facility] [address] [place] [address] Glucose [Mass/Vol] 106 mg/dL High 70-100 [facility] Comment on above: Performed By: #### C OVAG #### [facility] [address] [place] [address] Urea nitrogen [Mass/Vol] 18 mg/dL High 7-17 [facility] Comment on above: Performed By: #### C OVAG #### [facility] [address] [place] [address] Chloride [Moles/Vol] 105 mmol/L Normal 98-107 [facility] Comment on above: Performed By: #### C OVAG #### [facility] [address] [place] [address] Potassium [Moles/Vol] 4.3 mmol/L Normal 3.5-5.1 [facility] Comment on above: Performed By: #### C OVAG #### [facility] [address] [place] [address] Sodium [Moles/Vol] 139 mmol/L Normal 135-145 [facility] Comment on above: Performed By: #### C OVAG #### [facility] [address] [place] [address] Anion gap [Moles/Vol] 6 mmol/L 3 - 13 mmol/L [facility] Calcium [Mass/Vol] 9.1 mg/dL 8.4 - 10. 4 mg/dL [facility] Chloride [Moles/Vol] 105 mmol/L 98 - 10 7 mmol/L [facility] CO2 [Moles/Vol] 29 mmol/L 22 - 30 mmol/L [facility] Creatinine [Mass/Vol] 0.9 mg/dL 0.52 - 1.25 mg/dL [facility] EGFR IF NonAfrican Belizean 86.6 mL/min >60 [facility] Comment on above: KDIGO guidelines pro [...] - 17 mg/dL [facility] Test Performed by [facility], [address] LAB [facility] C-Reactive Proteinon 022 CRP [Mass/Vol] 33.5 mg/L High 0.0-9.9 [facility] Comment on above: Result Comment: . Performed By: #### P T #### [facility] [address] [place] [address] CRP [Mass/Vol] 33.5 mg/L High 0.0 - 9.9 mg/L [facility] Comment on above: . Interpretation and review of laboratory results Abnormal [facility] Test Performed by [facility], [address] LAB [facility] CR Calcaneus 2+ Views Lefton 10-21-2021 CR Calcaneus 2+ Views Left Patient Name: ANDREW SIFUENTES Diagnostic Radiology ACCESSION EXAM DATE/TIME PROCEDURE ORDERING PROVIDER [id number] 10/21/2021 15:30 EDT CR Calcaneus 2+ Views [id number] -SHRUTHI MALIK Left CPT code 97710 Reason For Exam (CR Calcaneus 2+ Views [...] Transcribed Date and Time: 10/21/2021 4:33 Normal [facility] CR Chest 1 View Frontalon CR Chest 1 View Frontal Patient Name: ANDREW SIFUENTES Diagnostic Radiology ACCESSION EXAM DATE/TIME PROCEDURE ORDERING PROVIDER [id number] 10/21/2021 08:16 EDT CR Chest 1 View Frontal [id number] [facility] CPT code 54278 Reason For Exam (CR Chest 1 View [...] OSAMA Transcribed Date and Time: 10/21/2021 8:33 Normal [facility] D-Dimer, Innovanceon 022 D-Dimer, Innovance 1.51 mg/L High <0.19-0.50 [facility] Comment on above: Result Comment: Inno saba D-Dimer values of <0.50 mg/L FEU can be used in combination with a pre-test probability model (e.g. Well's) to exclude pulmonary embolism (PE) disease, as well as an aid in the diagnosis of deep vein thrombosis (DVT). Performed By: #### P T #### [facility] [address] [place] [address] D-Dimer, Quantitativeon 10-05 D-Dimer, Quant 1.51 mg/L High <0.19 - 0.50 [facility] Comment on above: Innovance D-Dimer va lues of <0.50 mg/L FEU can be used in combination with a pre-test probability model (e.g. Well's) to exclude pulmonary embolism (PE) disease, as well as an aid in the diagnosis of deep vein thrombosis (DVT). Interpretation and review of laboratory results Abnormal [facility] Test Performed by [facility], [address], [place], [place] [id number] [place] [address] LAB [facility] ED Provider Noteon 2 ED Provider Note [facility] ED EMERGENCY DEPARTMENT ENCOUNTER Pt Name: Andrew Sifuentes Birthdate 1950 Date of evaluation: 10/21/2021 Provider: Lisa Michelle, CHIEF COMPLAINT Chief Complaint Patient presents with [...] (HCC) ? Kidney stone ? Neuropathy ? 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 Attends [employer]: Not on file ? Active Member [...] ?C) Tympanic 84 16 94 % 5' 7" (1.702 m) 240 lb (108.9 kg) GENERAL APPEARANCE: Awake and alert, to person and place. Cooperative. No acute distress. HEAD: Normocephalic. Atraumatic. EYES: EOM's grossly intact. Sclera anicteric. ENT: Mucous membranes are moist. Tolerates saliva. No trismus. NECK: Supple. No meningismus. Trachea midline. HEART: RRR. Radial pulses 2+. LUNGS: Respirations (more content not included)... Normal [facility] Hemogramon 10-21-2021 Erythrocyte distribution width (RBC) [Ratio] 17.3 % High 11.5-14.5 [facility] Comment on above: Performed By: #### C OVAG #### [facility] [address] [place] [address] Hematocrit (Bld) [Volume fraction] 33.6 % Low 40.0-52.0 [facility] Comment on above: Performed By: #### C OVAG #### [facility] [address] [place] [address] Hemoglobin (Bld) [Mass/Vol] 10.9 g/dL Low 13.0-18.0 [facility] Comment on above: Performed By: #### C OVAG #### [facility] [address] [place] [address] MCH (RBC) [Entitic mass] 27.8 pg Normal 26.0-34.0 [facility] Comment on above: Performed By: #### C OVAG #### [facility] [address] [place] [address] MCHC 32.5 % Normal 32.0-36.0 [facility] Comment on above: Performed By: #### C OVAG #### [facility] [address] [place] [address] MCV (RBC) [Entitic vol] 85.6 fL Normal 80.0-98.0 [facility] Comment on above: Performed By: #### C OVAG #### [facility] [address] [place] [address] Platelet mean volume (Bld) [Entitic vol] 7.7 fL Normal 7.4-12.4 [facility] Comment on above: Result Comment: MPV is a calculated measurement using platelet volume ratio. Performed By: #### C OVAG #### [facility] [address] [place] [address] Platelets (Bld) [#/Vol] 404 10*3/uL Normal 140-440 [facility] Comment on above: Performed By: #### C OVAG #### [facility] [address] [place] [address] RBC (Bld) [#/Vol] 3.93 10*6/uL Low 4.40-5.90 [facility] Comment on above: Performed By: #### C OVAG #### [facility] [address] [place] [address] WBC (Bld) [#/Vol] 11.6 10*3/uL High 3.6-10.7 [facility] Comment on above: Performed By: #### C OVAG #### [facility] [address] [place] [address] Hemogram (CBC)on 10-21-2021 Hematocrit (Bld) [Volume fraction] 33.6 % Low 40.0 - 52.0 % [facility] Hemoglobin (Bld) [Mass/Vol] 10.9 g/dL Low 13.0 - 18.0 g/dL [facility] Interpretation and review of laboratory results Abnormal [...] vol] 7.7 fL 7.4 - 12.4 fL [facility] Comment on above: MPV is a calculated measurement using platelet volume ratio. Platelets (Bld) [#/Vol] 404 10*3/uL 140 - 440 10*3/uL [facility] RBC (Bld) [#/Vol] 3.93 10*6/uL Low 4.40 - 5.9 0 10*6/uL [facility] WBC (Bld) [#/Vol] 11.6 10*3/uL High 3.6 - 10.7 10*3/uL [facility] Test Performed by [facility], [address], [place], [place] [id number] [place] [address] LAB [facility] NM LUNG VENT/PERFUSION (VQ)o n 10-21-2021 Patient Name: ANDREW SIFUENTES Nuclear Medicine ACCESSION EXAM DATE/TIME PROCEDURE ORDERING PROVIDER [id number] 10/21/2021 07:55 EDT NM Pulmonary Perfusion [id number] [facility] w/ Vent Aerosol CPT code 88998 A9567 Reason For Exam (NM Pulmonary Perfusion [...] JOHN Transcribed Date and Time: 10/21/2021 8:49 [facility] RAD Henry Harvey MD - 10/21/2021 Patient Name: ANDREW SIFUENTES Nuclear Medicine ACCESSION EXAM DATE/TIME PROCEDURE ORDERING PROVIDER [id number] 10/21/2021 07:55 EDT NM Pulmonary Perfusion [id number] [place] [facility] w/ Vent Aerosol CPT code 84926 A9567 Reason For Exam (NM Pulmonary Perfusion [...] JOHN Transcribed Date and Time: 10/21/2021 8:49 [facility] Work Phone: NM LUNG VENT/PERFUSION (VQ)O rdered By: Henry Harvey on 10-21-2021 [employer] [facility] Work Phone: NM Pulmonary Perfusion w/ Ve nt Aerosol or Gason 10-21-2021 NM Pulmonary Perfusion w/ Vent Aerosol or Gas Patient [facility]: [id number] Nuclear Medicine ACCESSION EXAM DATE/TIME PROCEDURE ORDERING PROVIDER [id number] 10/21/2021 07:55 EDT NM Pulmonary Perfusion [id number] [facility] w/ Vent Aerosol CPT code 91997 A9567 Reason For Exam (NM Pulmonary Perfusion [...] Transcribed Date and Time: 10/21/2021 8:49 Normal [facility] No Panel Informationon 10-21 Radiology Study observation (narrative) [facility] Work Phone: Prothrombin Timeon INR 1.1 Normal 0.9-1.1 [facility] Comment on above: Result Comment: Harry [...] Infarction Performed By: #### C OVAG #### [facility] [address] [place] [address] PT Coag (PPP) [Time] 11.5 s Normal 9.0-12.0 [facility] Comment on above: Result Comment: . Performed By: #### C OVAG #### [facility] [address] [place] [address] Protime-INRon 10-21-2021 INR Coag (Bld) [Relative time] 1.1 {INR} [facility] Comment on above: Recommended Anticoag ulant Therapy: [...] [Time] 11.5 s 9.0 - 12.0 s [facility] Comment on above: . Test Performed by [facility], [address] [place], [place] [id number] [place] [address] LAB [facility] Retic Count(%)on 10-21-2021 Retic Count(%) 1.6 Normal [facility] Comment on above: Result Comment: Newb orn < 5% Adults 0.5 - 1.5% Performed By: #### P T #### [facility] [address] [place] [address] Reticulocyteson 10-21-[address] Pct 1.6 [facility] Comment on above: < 5% Adults 0.5 - 1.5% Test Performed by [facility], [address] LAB [facility] Sed Rateon 10-21-2021 Sed Rate 63 mm/h High 0-10 [facility] Comment on above: Performed By: #### P T #### [facility] [address] [place] [address] Sedimentation Rateon 022 Interpretation and review of laboratory results Abnormal [facility] Sed Rate 63 mm/h High 0 - 10 mm/h [facility] Test Performed by [facility], [address] LAB [facility] VL CARMELLA Upr/L Extremity Art 1 -2 Levelson 10-21-2021 VL CARMELLA Upr/L Extremity Art 1-2 Levels Patient Name: ANDREW SIFUENTES Ultrasound ACCESSION EXAM DATE/TIME PROCEDURE ORDERING PROVIDER [id number] 10/21/2021 16:12 EDT VL Upr/L Extremity Art [id number] -SHRUTHI MALIK 1-2 Levels CPT code 22933 Reason For Exam (VL Upr/L Extremity Art 1-2 Levels) both lower legs CARMELLA for both feet wounds. Report [facility] Ankle Brachial Index Report Patient DO GurpreetB: 1950 Study 10/21/2021 Name: Andrew Gonzalez (71yrs) Date: Age: 71 Account: [id number] Gender: M Loc: 444W BP: Ordering Physician: Shruthi Malik Bank Worker: Rody Cross RDMS, RVT Interpreting Physician: Carina Call Location: [facility] Indications: Foot wounds. Originally ordered as a full PVR. Ordering FAST FOOD SALES ASSISTANT had to modify the order to ABIs [...] supine position. Images were obtained using a [employer] vascular ultrasound machine. Arterial pressure indices: + [...] CARINA HENNESSY Cardiovascular ACCESSION EXAM DATE/TIME PROCEDURE [id number] 10/21/2021 16:12 EDT VL Upr/L Extremity Art 1-2 Levels CPT code 09725 Reason For Exam (VL Upr/L Extremity Art 1-2 Levels) both lower legs CARMELLA for both feet wounds. Report [facility] Ankle Brachial Index Report Patient DO GurpreetB: 1950 Study 10/21/2021 Name: Andrew Gonzalez (71yrs) Date: Age: 71 Account: [id number] Cardiovascular Report Gender: M Loc: 444W BP: Ordering Physician: Shruthi Malik Bank Worker: Rody Cross RDMS, RVT Interpreting Physician: Carina Call Location: [facility] Indications: Foot wounds. Originally ordered as a full PVR. Ordering FAST FOOD SALES ASSISTANT had to modify the order to ABIs [...] in th (more content not included)... Normal [facility] VL LOWER EXTREMITY BILATERAL VENOUS DUPLEXon 10-21-2021 [facility] Lower Extremity Venous Duplex Report Patient DO GurpreetB: 1950 Study 10/21/2021 Name: Andrew Gonzalez (71yrs) Date: Age: 71 Account: [id number] Gender: M Loc: 444 BP: Ordering Physician: May Cash Bank Worker: Rody Cross RDMS, RVT Interpreting Physician: Carina Call Location: [facility] Indications: Bilateral lower leg edema. CRITICAL RESULTS: [...] supine position. Images were obtained using a [employer] vascular ultrasound machine. Venous flow and imaging: [...] +-------- --------+ + (more content not included)... [facility] CARDIOLOGY Cairna Call MD - 10/21/2021 [facility] Lower Extremity Venous Duplex Report Patient GurpreetRADHA: 1950 Study 10/21/2021 Name: Andrew Lisa Hedrick) Date: Age: 71 Account: [id number] Gender: M Loc: 444 BP: Ordering Physician: May Cash Bank Worker: Rody Cross RDMS, RVT Interpreting Physician: Carina Call Location: [facility] Indications: Bilateral lower leg edema. CRITICAL RESULTS: [...] supine position. Images were obtained using a [employer] vascular ultrasound machine. Venous flow and imaging: [...] + + +----- (more content not included)... [facility] Work Phone: VL LOWER EXTREMITY BILATERAL VENOUS DUPLEXOrdered By: Carina Call on 10-21-2021 [facility] Work Phone: VL Venous Duplex US Lower Ex t Bilateralon 10-21-2021 VL Venous Duplex US Lower Ext Bilateral Patient Name: ANDREW SIFUENTES Ultrasound ACCESSION EXAM DATE/TIME PROCEDURE ORDERING PROVIDER [id number] 10/21/2021 09:53 EDT VL Venous Duplex US [id number] -MAY CASH Lower Ext Bilateral CPT code 95653 Reason For Exam (VL Venous Duplex US Lower Ext Bilateral) bilateral sqwelling redness Report [facility] Lower Extremity Venous Duplex Report Patient DO GurpreetB: 1950 Study 10/21/2021 Name: Andrew Gonzalez (71yrs) Date: Age: 71 Account: [id number] Gender: M Loc: 444 BP: Ordering Physician: May Cash Bank Worker: Rody Cross RDMS, RVT Interpreting Physician: Carina Call Location: [facility] Indications: Bilateral lower leg edema. CRITICAL RESULTS: [...] supine position. Images were obtained using a [employer] vascular ultrasound machine. Venous flow and imaging: [...] + + (more content not included)... Normal [facility] XR CALCANEUS LEFT (MIN 2 VIE WS)on 10-21-2021 Patient Name: ANDREW SIFUENTES Diagnostic Radiology ACCESSION EXAM DATE/TIME PROCEDURE ORDERING PROVIDER [id number] 10/21/2021 15:30 EDT CR Calcaneus 2+ Views [id number] -SHRUTHI MALIK Left CPT code 60166 Reason For Exam (CR Calcaneus 2+ Views [...] Date and Time: 10/21/2021 4:33 [facility] Alan Wong MD - 10/21/2021 Patient [facility]: [id number] Diagnostic Radiology ACCESSION EXAM DATE/TIME PROCEDURE ORDERING PROVIDER [id number] 10/21/2021 15:30 EDT CR Calcaneus 2+ Views [id number] -SHRUTHI MALIK Left CPT code 51466 Reason For Exam (CR Calcaneus 2+ Views [...] VIE WS)Ordered By: Alan Wong on 10-21-2021 [facility] Work Phone: XR Chest 1 VWon 10-21-2021 Patient Name: AND[facility]W [facility]ENTES [id number] Diagnostic Radiology ACCESSION EXAM DATE/TIME PROCEDURE ORDERING PROVIDER [id number] 10/21/2021 08:16 EDT CR Chest 1 View Frontal [id number] [facility] CPT code 52061 Reason For Exam (CR Chest 1 View [...] OSAMA Transcribed Date and Time: 10/21/2021 8:33 Venus Tucker MD - 10/21/2021 Patient Name: [facility]ENTES [facility] [id number] Diagnostic Radiology ACCESSION EXAM DATE/TIME PROCEDURE ORDERING PROVIDER [id number] 10/21/2021 08:16 EDT CR Chest 1 View Frontal [id number] [facility] CPT code 84325 Reason For Exam (CR Chest 1 View [...] OSAMA Transcribed Date and Time: 10/21/2021 8:33 [facility] Work Phone: XR Chest 1 VWOrdered By: Natalie Loyd on 10-21-2021 [facility] Work Phone: Basophil percentageon 2021 Chloride [Moles/Vol] 108 mmol/L 98-107 [facility] Work Phone: Glucose [Mass/Vol] 93 mg/dL 74-106 [facility] Work Phone: Potassium [Moles/Vol] 3.9 mmol/L 3.5-5.1 Betancur ster [facility] Work Phone: Sodium [Moles/Vol] 140 mmol/L 136-145 [facility] Work Phone: WBC (Bld) [#/Vol] 8.7 10*3/uL 4.4-11.0 [facility] Work Phone: Blood erythrocytes count (nu mber/volume)on 10-20-2021 RBC (Bld) [#/Vol] 3.63 10*6/uL 4.6-6.2 [facility] Work Phone: Blood hemoglobin measurement (mass/volume)on 10-20-2021 Hemoglobin (Bld) [Mass/Vol] 10.1 g/dL 13.0-16.5 [facility] Work Phone: Blood platelet mean volumeon 10-20-2021 Platelet mean volume (Bld) [Entitic vol] 9.8 fL 6.2-12.0 [facility] Work Phone: Determination of erythrocyte mean corpuscular volume (MCV)on 10-20-2021 MCV (RBC) [Entitic vol] 90.1 fL 80-94 [facility] Work Phone: Hematocrit Auto (Bld) [Volum e fraction]on 10-20-2021 Hematocrit (Bld) [Volume fraction] 32.7 % 40-54 [facility] Work Phone: Laboratory - Chemistry and C hemistry - challengeon 10-20-2021 CO2 [Moles/Vol] 25.0 mmol/L 21.0-32.0 [facility] Work Phone: Urea nitrogen/Creatinine [Mass ratio] 17.4 mg/mg 10-20 [facility] Work Phone: Laboratory - Hematology and Cell countson 10-20-2021 Erythrocyte distribution width (RBC) [Entitic vol] 52.1 fL 35.1-43.9 [facility] Work Phone: Erythrocyte distribution width (RBC) [Ratio] 15.6 % 11.6-14.6 [facility] Work Phone: MCH (RBC) [Entitic mass] 27.8 pg 27.0-32.0 [facility] Work Phone: MCHC Auto (RBC) [Mass/Vol]on 10-20-2021 MCHC (RBC) [Mass/Vol] 30.9 g/dL 32-36 [facility] Work Phone: No Panel Informationon 10-20 Estimated GFR (MDRD) Amer 133 mL/min >60 [facility] Work Phone: Comment on above: GFR Calc Estimated GFR (MDRD) Non-Af Amer 110 mL/min >60 [facility] Work Phone: Comment on above: Non- GFR Calc Platelets bldon 10-20-2021 Platelets (Bld) [#/Vol] 404 10*3/uL 150-450 [facility] Work Phone: Serum or plasma calcium oral urement (mass/volume)on 10-20-2021 Calcium [Mass/Vol] 9.1 mg/dL 8.5-10.1 [facility] Work Phone: Serum or plasma creatinine m easurement (mass/volume)on 10-20-2021 Creatinine [Mass/Vol] 0.75 mg/dL 0.70-1.30 [facility] Work Phone: Comment on above: The validity of the calculated GFR & GFRAA in patients over 70 years has not been determined. Clinical correlation is essential. Serum or plasma urea nitroge n measurement (mass/volume)on 10-20-2021 Urea nitrogen [Mass/Vol] 13 mg/dL 7-18 [facility] Work Phone: Thin prep Papanicolaou smear with manual screeningon 10-20-2021 Thin prep Papanicolaou smear with manual screening 7 5-15 [facility] Work Phone: CNPNon 10-17-2021 CNPN Normal [facility] Absolute lymphocyte counton 09-19-2021 Lymphocytes Auto (Unsp spec) [#/Vol] 1.74 10*3/uL 0.83-4.51 [facility] Work Phone: Basophil percentageon 2021 Basophils/100 WBC (Bld) 0.6 % 0-1 [facility] Work Phone: Bilirubin [Mass/Vol] 0.30 mg/dL 0.20-1.00 [facility] Work Phone: Comment on above: For patients on eltr ombopag therapy, use of Dimension [place] TBIL is not recommended. Chloride [Moles/Vol] 105 mmol/L 98-107 [facility] Work Phone: Eosinophils/100 WBC (Bld) 3.5 % 0-5 [facility] Work Phone: Glucose [Mass/Vol] 91 mg/dL 74-106 [facility] Work Phone: [phone] Neutrophils (Bld) [#/Vol] 4.2 10*3/uL 2.0-7.7 [facility] Work Phone: [phone] Neutrophils/100 WBC (Bld) 62.6 % 47-70 [facility] Work Phone: [phone] Potassium [Moles/Vol] 3.8 mmol/L 3.5-5.1 [facility] Work Phone: [phone] Protein [Mass/Vol] 6.3 g/dL 6.4-8.2 [facility] Work Phone: Sodium [Moles/Vol] 139 mmol/L 136-145 [facility] Work Phone: [phone] WBC (Bld) [#/Vol] 6.6 10*3/uL 4.4-11.0 [facility] Work Phone: [phone] Blood erythrocytes count (nu mber/volume)on 09-19-2021 RBC (Bld) [#/Vol] 3.47 10*6/uL 4.6-6.2 [facility] Work Phone: Blood hemoglobin measurement (mass/volume)on 09-19-2021 Hemoglobin (Bld) [Mass/Vol] 10.2 g/dL 13.0-16.5 [facility] Work Phone: Blood lymphocytes/100 leukoc yteson 09-19-2021 Lymphocytes/100 WBC (Bld) 26.2 % 19-41 [facility] Work Phone: Blood monocytes/100 leukocyt eson 09-19-2021 Monocytes/100 WBC (Bld) 6.5 % 0-10 [facility] Work Phone: Blood platelet mean volumeon 09-19-2021 Platelet mean volume (Bld) [Entitic vol] 9.6 fL 6.2-12.0 [facility] Work Phone: Determination of erythrocyte mean corpuscular volume (MCV)on 09-19-2021 MCV (RBC) [Entitic vol] 94.8 fL 80-94 [facility] Work Phone: Hematocrit Auto (Bld) [Volum e fraction]on 09-19-2021 Hematocrit (Bld) [Volume fraction] 32.9 % 40-54 [facility] Work Phone: Laboratory - Chemistry and C hemistry - challengeon 09-19-2021 ALP [Catalytic activity/Vol] 109 U/L 45-117 [facility] Work Phone: ALT [Catalytic activity/Vol] 23 U/L 16-61 [facility] Work Phone: CO2 [Moles/Vol] 26.0 mmol/L 21.0-32.0 [facility] Work Phone: Globulin (S) [Mass/Vol] 3.5 g/dL 2.2-4.2 [facility] Work Phone: Urea nitrogen/Creatinine [Mass ratio] 15.3 mg/mg 10-20 [facility] Work Phone: Laboratory - Hematology and Cell countson 09-19-2021 Erythrocyte distribution width (RBC) [Entitic vol] 59.4 fL 35.1-43.9 [facility] Work Phone: Erythrocyte distribution width (RBC) [Ratio] 17.1 % 11.6-14.6 [facility] Work Phone: Immature granulocytes/100 WBC (Bld) 0.600 % 0.0-0.9 [facility] Work Phone: Comment on above: IG% - Immature Granu locytes (promyelocytes, myelocytes and metamyelocytes) > 1% indicates that a LEFT SHIFT is Present. MCH (RBC) [Entitic mass] 29.4 pg 27.0-32.0 [facility] Work Phone: Nucleated RBC/100 WBC (Bld) [Ratio] 0 % 0-5 [facility] Work Phone: MCHC Auto (RBC) [Mass/Vol]on 09-19-2021 MCHC (RBC) [Mass/Vol] 31.0 g/dL 32-36 [facility] Work Phone: No Panel Informationon 09-19 Estimated GFR (MDRD) Amer 175 mL/min >60 [facility] Work Phone: Comment on above: GFR Calc Estimated GFR (MDRD) Non-Af Amer 145 mL/min >60 [facility] Work Phone: Comment on above: Non- GFR Calc Platelets bldon 09-19-2021 Platelets (Bld) [#/Vol] 342 10*3/uL 150-450 [facility] Work Phone: Serum or plasma albumin oral urement (mass/volume)on 09-19-2021 Albumin [Mass/Vol] 2.8 g/dL 3.2-5.0 [facility] Work Phone: Serum or plasma albumin/glob ulin mass ratioon 09-19-2021 Albumin/Globulin [Mass ratio] 0.8 {ratio} 0.9-2.4 [facility] Work Phone: Serum or plasma calcium oral urement (mass/volume)on 09-19-2021 Calcium [Mass/Vol] 9.0 mg/dL 8.5-10.1 [facility] Work Phone: Serum or plasma creatinine m easurement (mass/volume)on 09-19-2021 Creatinine [Mass/Vol] 0.59 mg/dL 0.70-1.30 [facility] Work Phone: Comment on above: The validity of the calculated GFR & GFRAA in patients over 70 years has not been determined. Clinical correlation is essential. Serum or plasma urea nitroge n measurement (mass/volume)on 09-19-2021 Urea nitrogen [Mass/Vol] 9 mg/dL 7-18 [facility] Work Phone: Thin prep Papanicolaou smear with manual screeningon 09-19-2021 Thin prep Papanicolaou smear with manual screening 12 U/L 15-37 [facility] Work Phone: Thin prep Papanicolaou smear with manual screening 8 5-15 [facility] Work Phone: OPERATIVE NOon 08-22-2021 OPERATIVE NO Normal [facility] Basic metabolic 2000 panelon 08-19-2021 Anion gap [Moles/Vol] 10 mmol/L Normal 9-18 [facility] Comment on above: Order Comment: Speci men Type: BLOOD SPECIMENOrdering Facility: [facility] Address: [address] [address] Performed By: #### 2 4321-2 ####[facility] LABORATORYCLIA [id number] [place] [address] [place] Calcium [Mass/Vol] 8.6 mg/dL Normal 8.5-10.2 [facility] Comment on above: Order Comment: Speci men Type: BLOOD SPECIMENOrdering Facility: [facility] Address: [address] [address] Performed By: #### 2 4321-2 ####[facility] LABORATORYCLIA [id number] [place] [address] [place] Chloride [Moles/Vol] 99 mmol/L Normal 97-105 [facility] Comment on above: Order Comment: Speci men Type: BLOOD SPECIMENOrdering Facility: [facility] Address: [address] [address] Performed By: #### 2 4321-2 ####[facility] LABORATORYCLIA [id number] [address] [place] [facility] CO2 [Moles/Vol] 29 mmol/L Normal 22-30 [facility] Comment on above: Order Comment: Speci men Type: BLOOD SPECIMENOrdering Facility: [facility] Address: [address] [place] [address] Performed By: #### 2 4321-2 ####[facility]PITALCLIA [id number] [address] [facility] Creatinine [Mass/Vol] 0.58 mg/dL Low 0.73-1.22 [facility] Comment on above: Order Comment: Speci men Type: BLOOD SPECIMENOrdering Facility: [facility] Address: [address] [place] [address] Performed By: #### 2 4321-2 ####[facility] [id number] [address] ESTIMATED GLOMERULAR FILTRATION RATE 106 mL/min/1.73m??? Normal >=60 [facility] Comment on above: Order Comment: Speci men Type: BLOOD SPECIMENOrdering Facility: [facility] Address: [address] [place] [address] Result Comment: Luzmaria mated Glomerular Filtration Rate [...] actual GFR. Performed By: #### 2 4321-2 ####[facility] LABORATORYCLIA [id number] [address] [facility] Glucose [Mass/Vol] 101 mg/dL High 74-99 [facility] Comment on above: Order Comment: Speci men Type: BLOOD SPECIMENOrdering Facility: [facility] Address: [address] [place] [address] Result Comment: The [place] [employer] (ADA) provides guidance for cutoff [...] Standards of Medical Care in Diabetes 2016, [place] [employer]. Diabetes Care. 2016.39(Suppl 1). Performed By: #### 2 4321-2 ####[facility] LABORATORYCLIA [id number] [address] [place] Potassium [Moles/Vol] 3.5 mmol/L Low 3.7-5.1 [facility] Comment on above: Order Comment: Speci men Type: BLOOD SPECIMENOrdering Facility: [facility] Address: [address] [place] [address] Performed By: #### 2 4321-2 ####[facility] LABORATORYCLIA [id number] [address] [place] Sodium [Moles/Vol] 138 mmol/L Normal 136-144 [facility] Comment on above: Order Comment: Speci men Type: BLOOD SPECIMENOrdering Facility: [facility] Address: [address] [address] Performed By: #### 2 4321-2 ####[facility] LABORATORYCLIA [id number] [place] [address] [place] Urea nitrogen [Mass/Vol] 11 mg/dL Normal 9-24 [facility] Comment on above: Order Comment: Speci men Type: BLOOD SPECIMENOrdering Facility: [facility] Address: [address] [address] Performed By: #### 2 4321-2 ####[facility] LABORATORYCLIA [id number] [address] [facility] CASE MANAGEMon 08-19-2021 CASE MANAGEM Normal [facility] CBC W Auto Differential pane l (Bld)on 08-19-2021 Basophils (Bld) [#/Vol] 0.03 10*3/uL Normal <0.11 [facility] Comment on above: Order Comment: Speci men Type: BLOOD SPECIMENOrdering Facility: [facility] Address: [address] [place] [address] Performed By: #### 5 7021-8 ####[facility] LABORATORYCLIA [id number] [address] Basophils/100 WBC (Bld) 0.4 % Normal [facility] Comment on above: Order Comment: Speci men Type: BLOOD SPECIMENOrdering Facility: [facility] Address: [address] [place] [address] Performed By: #### 5 7021-8 ####[facility] LABORATORYCLIA [id number] [address] Differential cell count method Nom (Bld) Auto Normal [facility] Comment on above: Order Comment: Speci men Type: BLOOD SPECIMENOrdering Facility: [facility] Address: [address] [place] [address] Performed By: #### 5 7021-8 ####[facility] LABORATORYCLIA [id number] [address] [place] Eosinophils (Bld) [#/Vol] 0.24 10*3/uL Normal <0.46 [facility] Comment on above: Order Comment: Speci men Type: BLOOD SPECIMENOrdering Facility: [facility] Address: [address] [place] [address] Performed By: #### 5 7021-8 ####[facility] LABORATORYCLIA [id number] [address] Eosinophils/100 WBC (Bld) 3.1 % Normal [facility] Comment on above: Order Comment: Speci men Type: BLOOD SPECIMENOrdering Facility: [facility] Address: [address] [place] [address] Performed By: #### 5 7021-8 ####[facility] LABORATORYCLIA [id number] [address] Erythrocyte distribution width (RBC) [Ratio] 17.5 % High 11.5-15.0 [facility] Comment on above: Order Comment: Speci men Type: BLOOD SPECIMENOrdering Facility: [facility] Address: [address] [place] [address] Performed By: #### 5 7021-8 ####[facility] LABORATORYCLIA [id number] [address] Hematocrit (Bld) [Volume fraction] 30.2 % Low 39.0-51.0 [facility] Comment on above: Order Comment: Speci men Type: BLOOD SPECIMENOrdering Facility: [facility] Address: [address] [place] [address] Performed By: #### 5 7021-8 ####[facility] LABORATORYCLIA [id number] [address] [facility] Hemoglobin (Bld) [Mass/Vol] 9.6 g/dL Low 13.0-17.0 [facility] Comment on above: Order Comment: Speci men Type: BLOOD SPECIMENOrdering Facility: [facility] Address: [address] [place] [address] Performed By: #### 5 7021-8 ####[facility] LABORATORYCLIA [id number] [address] IMMATURE GRAN % 0.4 % Normal [facility] Comment on above: Order Comment: Speci men Type: BLOOD SPECIMENOrdering Facility: [facility] Address: [address] [place] [address] Performed By: #### 5 7021-8 ####[facility] LABORATORYCLIA [id number] [address] IMMATURE GRAN ABS 0.03 k/uL Normal <0.10 [facility] Comment on above: Order Comment: Speci men Type: BLOOD SPECIMENOrdering Facility: [facility] Address: [address] [place] [address] Performed By: #### 5 7021-8 ####[facility] LABORATORYCLIA [id number] [address] [place] Lymphocytes (Bld) [#/Vol] 1.71 10*3/uL Normal 1.00-4.00 [facility] Comment on above: Order Comment: Speci men Type: BLOOD SPECIMENOrdering Facility: [facility] Address: [address] [place] [address] Performed By: #### 5 7021-8 ####[facility] LABORATORYCLIA [id number] [address] [facility] Lymphocytes/100 WBC (Bld) 22.2 % Normal [facility] Comment on above: Order Comment: Speci men Type: BLOOD SPECIMENOrdering Facility: [facility] Address: [address] [place] [address] Performed By: #### 5 7021-8 ####[facility] LABORATORYCLIA [id number] [address] [place] MCH (RBC) [Entitic mass] 29.4 pg Normal 26.0-34.0 [facility] Comment on above: Order Comment: Speci men Type: BLOOD SPECIMENOrdering Facility: [facility] Address: [address] [place] [address] Performed By: #### 5 7021-8 ####[facility] LABORATORYCLIA [id number] [address] [place] MCHC (RBC) [Mass/Vol] 31.8 g/dL Normal 30.5-36.0 [facility] Comment on above: Order Comment: Speci men Type: BLOOD SPECIMENOrdering Facility: [facility] Address: [address] [place] [address] Performed By: #### 5 7021-8 ####[facility] LABORATORYCLIA [id number] [place] [address] [place] MCV (RBC) [Entitic vol] 92.6 fL Normal 80.0-100.0 [facility] Comment on above: Order Comment: Speci men Type: BLOOD SPECIMENOrdering Facility: [facility] Address: [address] [place] [address] Performed By: #### 5 7021-8 ####[facility] LABORATORYCLIA [id number] [place] [address] [place] Monocytes (Bld) [#/Vol] 0.50 10*3/uL Normal <0.87 [facility] Comment on above: Order Comment: Speci men Type: BLOOD SPECIMENOrdering Facility: [facility] Address: [address] [place] [address] Performed By: #### 5 7021-8 ####[facility] LABORATORYCLIA [id number] [address] [place] Monocytes/100 WBC (Bld) 6.5 % Normal [facility] Comment on above: Order Comment: Speci men Type: BLOOD SPECIMENOrdering Facility: [facility] Address: [address] [place] [address] Performed By: #### 5 7021-8 ####[facility] LABORATORYCLIA [id number] [address] [place] Neutrophils (Bld) [#/Vol] 5.20 10*3/uL Normal 1.45-7.50 [facility] Comment on above: Order Comment: Speci men Type: BLOOD SPECIMENOrdering Facility: [facility] Address: [address] [place] [address] Performed By: #### 5 7021-8 ####[facility] LABORATORYCLIA [id number] [address] [place] Neutrophils/100 WBC (Bld) 67.4 % Normal [facility] Comment on above: Order Comment: Speci men Type: BLOOD SPECIMENOrdering Facility: [facility] Address: [address] [place], [place] [address] Performed By: #### 5 7021-8 ####[facility] LABORATORYCLIA [id number] [address] [facility] Nucleated RBC (Bld) [#/Vol] 10*3/uL Normal <0.01 [facility] Comment on above: Order Comment: Speci men Type: BLOOD SPECIMENOrdering Facility: [facility] Address: [address] [place] [address] Performed By: #### 5 7021-8 ####[facility] LABORATORYCLIA [id number] [address] [place] Nucleated RBC/100 WBC (Bld) [Ratio] 0.0 /100 WBC Normal [facility] Comment on above: Order Comment: Speci men Type: BLOOD SPECIMENOrdering Facility: [facility] Address: [address] [place] [address] Performed By: #### 5 7021-8 ####[facility] LABORATORYCLIA [id number] [address] [place] Platelet mean volume (Bld) [Entitic vol] 8.9 fL Low 9.0-12.7 [facility] Comment on above: Order Comment: Speci men Type: BLOOD SPECIMENOrdering Facility: [facility] Address: [address] [place] [address] Performed By: #### 5 7021-8 ####[facility] LABORATORYCLIA [id number] [address] [place] Platelets (Bld) [#/Vol] 408 10*3/uL High 150-400 [facility] Comment on above: Order Comment: Speci men Type: BLOOD SPECIMENOrdering Facility: [facility] Address: [address] [place], [place] [address] Performed By: #### 5 7021-8 ####[facility] LABORATORYCLIA [id number] [address] [place] RBC (Bld) [#/Vol] 3.26 10*6/uL Low 4.20-6.00 [facility] Comment on above: Order Comment: Speci men Type: BLOOD SPECIMENOrdering Facility: [facility] Address: [address] [place] [address] Performed By: #### 5 7021-8 ####[facility] LABORATORYCLIA [id number] [place] [address] [place] WBC (Bld) [#/Vol] 7.71 10*3/uL Normal 3.70-11.00 [facility] Comment on above: Order Comment: Speci men Type: BLOOD SPECIMENOrdering Facility: [facility] Address: [address] [place] [address] Performed By: #### 5 7021-8 ####[facility] LABORATORYCLIA [id number] [address] [place] CNDSon 08-19-2021 CNDS Normal [facility] CONSULT PROGon 08-19-2021 CONSULT PROG Normal [facility] THERAPY NTon 08-19-2021 THERAPY NT Normal [facility] Basic metabolic 2000 panelon 08-18-2021 Anion gap [Moles/Vol] 11 mmol/L Normal 9-18 [facility] Comment on above: Order Comment: Speci men Type: BLOOD SPECIMENOrdering Facility: [facility] Address: [address] [place] [address] Performed By: #### 2 4321-2 ####[facility] LABORATORYCLIA [id number] [place] [address] [place] Calcium [Mass/Vol] 8.6 mg/dL Normal 8.5-10.2 [facility] Comment on above: Order Comment: Speci men Type: BLOOD SPECIMENOrdering Facility: [facility] Address: [address] [place] [address] Performed By: #### 2 4321-2 ####[facility] LABORATORYCLIA [id number] [place] [address] [place] Chloride [Moles/Vol] 98 mmol/L Normal 97-105 [facility] Comment on above: Order Comment: Speci men Type: BLOOD SPECIMENOrdering Facility: [facility] Address: [address] [place] [address] Performed By: #### 2 4321-2 ####[facility] LABORATORYCLIA [id number] [place] [address] [place] CO2 [Moles/Vol] 28 mmol/L Normal 22-30 [facility] Comment on above: Order Comment: Speci men Type: BLOOD SPECIMENOrdering Facility: [facility] Address: [address] [place] [address] Performed By: #### 2 4321-2 ####[facility] LABORATORYCLIA [id number] [address] [place] Creatinine [Mass/Vol] 0.56 mg/dL Low 0.73-1.22 [facility] Comment on above: Order Comment: Speci men Type: BLOOD SPECIMENOrdering Facility: [facility] Address: [address] [place] [address] Performed By: #### 2 4321-2 ####[facility] LABORATORYCLIA [id number] [address] ESTIMATED GLOMERULAR FILTRATION RATE 107 mL/min/1.73m??? Normal >=60 [facility] Comment on above: Order Comment: Speci men Type: BLOOD SPECIMENOrdering Facility: [facility] Address: [address] [place] [address] Result Comment: Luzmaria mated Glomerular Filtration Rate [...] actual GFR. Performed By: #### 2 4321-2 ####[facility] LABORATORYCLIA [id number] [address] [place] Glucose [Mass/Vol] 113 mg/dL High 74-99 [facility] Comment on above: Order Comment: Speci men Type: BLOOD SPECIMENOrdering Facility: [facility] Address: [address] [place] [address] Result Comment: The [place] [employer] (ADA) provides guidance for cutoff [...] Standards of Medical Care in Diabetes 2016, [place] [employer]. Diabetes Care. 2016.39(Suppl 1). Performed By: #### 2 4321-2 ####[facility] LABORATORYCLIA [id number] [place] [address] [place] Potassium [Moles/Vol] 3.5 mmol/L Low 3.7-5.1 [facility] Comment on above: Order Comment: Shira francia Type: BLOOD SPECIMENOrdering Facility: [facility] Address: [address] [place] [address] Performed By: #### 2 4321-2 ####[facility] LABORATORYCLIA [id number] [place] [address] [place] Sodium [Moles/Vol] 137 mmol/L Normal 136-144 [facility] Comment on above: Order Comment: Speci men Type: BLOOD SPECIMENOrdering Facility: [facility] Address: [address] Performed By: #### 2 4321-2 ####[facility] LABORATORYCLIA [id number] [place] [address] [place] Urea nitrogen [Mass/Vol] 10 mg/dL Normal 9-24 [facility] Comment on above: Order Comment: Speci men Type: BLOOD SPECIMENOrdering Facility: [facility] Address: [address] [address] Performed By: #### 2 4321-2 ####[facility]ORATORYCLIA [id number] [address] [place] [facility] CBC W Auto Differential pane l (Bld)on 08-18-2021 Basophils (Bld) [#/Vol] 10*3/uL Normal <0.11 [facility] Comment on above: Order Comment: Speci men Type: BLOOD SPECIMENOrdering Facility: [facility] Address: [address] [place] [address] Performed By: #### 5 7021-8 ####[facility] LABORATORYCLIA [id number] [address] Basophils/100 WBC (Bld) 0.3 % Normal [facility] Comment on above: Order Comment: Speci men Type: BLOOD SPECIMENOrdering Facility: [facility] Address: [address] [place] [address] Performed By: #### 5 7021-8 ####[facility] LABORATORYCLIA [id number] [address] Differential cell count method Nom (Bld) Auto Normal [facility] Comment on above: Order Comment: Speci men Type: BLOOD SPECIMENOrdering Facility: [facility] Address: [address] [place] [address] Performed By: #### 5 7021-8 ####[facility]ATORYCLIA [id number] [address] [place] Eosinophils (Bld) [#/Vol] 0.37 10*3/uL Normal <0.46 [facility] Comment on above: Order Comment: Speci men Type: BLOOD SPECIMENOrdering Facility: [facility] Address: [address] [place] [address] Performed By: #### 5 7021-8 ####[facility] LABORATORYCLIA [id number] [address] [place] Eosinophils/100 WBC (Bld) 4.8 % Normal [facility] Comment on above: Order Comment: Speci men Type: BLOOD SPECIMENOrdering Facility: [facility] Address: [address] [place] [address] Performed By: #### 5 7021-8 ####[facility] LABORATORYCLIA [id number] [address] Erythrocyte distribution width (RBC) [Ratio] 17.5 % High 11.5-15.0 [facility] Comment on above: Order Comment: Speci men Type: BLOOD SPECIMENOrdering Facility: [facility] Address: [address] [place] [address] Performed By: #### 5 7021-8 ####[facility] LABORATORYCLIA [id number] [address] Hematocrit (Bld) [Volume fraction] 30.2 % Low 39.0-51.0 [facility] Comment on above: Order Comment: Speci men Type: BLOOD SPECIMENOrdering Facility: [facility] Address: [address] [place] [address] Performed By: #### 5 7021-8 ####[facility] LABORATORYCLIA [id number] [address] [place] Hemoglobin (Bld) [Mass/Vol] 9.5 g/dL Low 13.0-17.0 [facility] Comment on above: Order Comment: Speci men Type: BLOOD SPECIMENOrdering Facility: [facility] Address: [address] [place] [address] Performed By: #### 5 7021-8 ####[facility] LABORATORYCLIA [id number] [address] [place] IMMATURE GRAN % 0.4 % Normal [facility] Comment on above: Order Comment: Speci men Type: BLOOD SPECIMENOrdering Facility: [facility] Address: [address] [place] [address] Performed By: #### 5 7021-8 ####[facility] LABORATORYCLIA [id number] [address] IMMATURE GRAN ABS 0.03 k/uL Normal <0.10 [facility] Comment on above: Order Comment: Speci men Type: BLOOD SPECIMENOrdering Facility: [facility] Address: [address] [place] [address] Performed By: #### 5 7021-8 ####[facility] LABORATORYCLIA [id number] [address] [place] Lymphocytes (Bld) [#/Vol] 1.85 10*3/uL Normal 1.00-4.00 [facility] Comment on above: Order Comment: Speci men Type: BLOOD SPECIMENOrdering Facility: [facility] Address: [address] [place] [address] Performed By: #### 5 7021-8 ####[facility] LABORATORYCLIA [id number] [address] Lymphocytes/100 WBC (Bld) 23.8 % Normal [facility] Comment on above: Order Comment: Speci men Type: BLOOD SPECIMENOrdering Facility: [facility] Address: [address] [place] [address] Performed By: #### 5 7021-8 ####[facility] LABORATORYCLIA [id number] [address] MCH (RBC) [Entitic mass] 29.5 pg Normal 26.0-34.0 [facility] Comment on above: Order Comment: Speci men Type: BLOOD SPECIMENOrdering Facility: [facility] Address: [address] [place] [address] Performed By: #### 5 7021-8 ####[facility] LABORATORYCLIA [id number] [address] MCHC (RBC) [Mass/Vol] 31.5 g/dL Normal 30.5-36.0 [facility] Comment on above: Order Comment: Speci men Type: BLOOD SPECIMENOrdering Facility: [facility] Address: [address] [place] [address] Performed By: #### 5 7021-8 ####[facility]ORATORYCLIA [id number] [place] [address] [place] MCV (RBC) [Entitic vol] 93.8 fL Normal 80.0-100.0 [facility] Comment on above: Order Comment: Speci men Type: BLOOD SPECIMENOrdering Facility: [facility] Address: [address] [place] [address] Performed By: #### 5 7021-8 ####[facility] LABORATORYCLIA [id number] [address] [place] Monocytes (Bld) [#/Vol] 0.49 10*3/uL Normal <0.87 [facility] Comment on above: Order Comment: Speci men Type: BLOOD SPECIMENOrdering Facility: [facility] Address: [address] [place] [address] Performed By: #### 5 7021-8 ####[facility] LABORATORYCLIA [id number] [address] [place] Monocytes/100 WBC (Bld) 6.3 % Normal [facility] Comment on above: Order Comment: Speci men Type: BLOOD SPECIMENOrdering Facility: [facility] Address: [address] [place] [address] Performed By: #### 5 7021-8 ####[facility] LABORATORYCLIA [id number] [address] [place] Neutrophils (Bld) [#/Vol] 5.00 10*3/uL Normal 1.45-7.50 [facility] Comment on above: Order Comment: Speci men Type: BLOOD SPECIMENOrdering Facility: [facility] Address: [address] [place] [address] Performed By: #### 5 7021-8 ####[facility] LABORATORYCLIA [id number] [address] [place] Neutrophils/100 WBC (Bld) 64.4 % Normal [facility] Comment on above: Order Comment: Speci men Type: BLOOD SPECIMENOrdering Facility: [facility] Address: [address] Performed By: #### 5 7021-8 ####[facility] LABORATORYCLIA [id number] [address] Nucleated RBC (Bld) [#/Vol] 10*3/uL Normal <0.01 [facility] Comment on above: Order Comment: Speci men Type: BLOOD SPECIMENOrdering Facility: [facility] Address: [address] Performed By: #### 5 7021-8 ####[facility] LABORATORYCLIA [id number] [address] Nucleated RBC/100 WBC (Bld) [Ratio] 0.0 /100 WBC Normal [facility] Comment on above: Order Comment: Speci men Type: BLOOD SPECIMENOrdering Facility: [facility] Address: [address] [place] [address] [place], [place] [address] Performed By: #### 5 7021-8 ####[facility] LABORATORYCLIA [id number] [address] Platelet mean volume (Bld) [Entitic vol] 9.1 fL Normal 9.0-12.7 [facility] Comment on above: Order Comment: Speci men Type: BLOOD SPECIMENOrdering Facility: [facility] Address: [address] Performed By: #### 5 7021-8 ####[facility] LABORATORYCLIA [id number] [address] Platelets (Bld) [#/Vol] 391 10*3/uL Normal 150-400 [facility] Comment on above: Order Comment: Speci men Type: BLOOD SPECIMENOrdering Facility: [facility] Address: [address] [place] [address] [place], [place] [address] Performed By: #### 5 7021-8 ####[facility] LABORATORYCLIA [id number] [place] [address] [place] RBC (Bld) [#/Vol] 3.22 10*6/uL Low 4.20-6.00 [facility] Comment on above: Order Comment: Speci men Type: BLOOD SPECIMENOrdering Facility: [facility] Address: [address] [place] [address] Performed By: #### 5 7021-8 ####[facility] LABORATORYCLIA [id number] [place] [address] [place] WBC (Bld) [#/Vol] 7.76 10*3/uL Normal 3.70-11.00 [facility] Comment on above: Order Comment: Speci men Type: BLOOD SPECIMENOrdering Facility: [facility] Address: [address] [place] [address] Performed By: #### 5 7021-8 ####[facility] LABORATORYCLIA [id number] [address] OF [facility] CONSULT PROGon 08-18-2021 CONSULT PROG Normal [facility] CASE MANAGEMon 08-17-2021 CASE MANAGEM Normal [facility] CBC W Auto Differential pane l (Bld)on 08-17-2021 Basophils (Bld) [#/Vol] 0.04 10*3/uL Normal <0.11 [facility] Comment on above: Order Comment: Speci men Type: BLOOD SPECIMENOrdering Facility: [facility] Address: [address] [place] [address] Performed By: #### 5 7021-8 ####[facility] LABORATORYCLIA [id number] [address] [place] Basophils/100 WBC (Bld) 0.5 % Normal [facility] Comment on above: Order Comment: Speci men Type: BLOOD SPECIMENOrdering Facility: [facility] Address: [address] [place] [address] Performed By: #### 5 7021-8 ####[facility] LABORATORYCLIA [id number] [address] [place] Differential cell count method Nom (Bld) Auto Normal [facility] Comment on above: Order Comment: Speci men Type: BLOOD SPECIMENOrdering Facility: [facility] Address: [address] [place] [address] Performed By: #### 5 7021-8 ####[facility] LABORATORYCLIA [id number] [address] [place] Eosinophils (Bld) [#/Vol] 0.31 10*3/uL Normal <0.46 [facility] Comment on above: Order Comment: Speci men Type: BLOOD SPECIMENOrdering Facility: [facility] Address: [address] [place] [address] Performed By: #### 5 7021-8 ####[facility] LABORATORYCLIA [id number] [address] Eosinophils/100 WBC (Bld) 3.7 % Normal [facility] Comment on above: Order Comment: Speci men Type: BLOOD SPECIMENOrdering Facility: [facility] Address: [address] [place] [address] Performed By: #### 5 7021-8 ####[facility] LABORATORYCLIA [id number] [address] [place] Erythrocyte distribution width (RBC) [Ratio] 17.4 % High 11.5-15.0 [facility] Comment on above: Order Comment: Speci men Type: BLOOD SPECIMENOrdering Facility: [facility] Address: [address] [place] [address] Performed By: #### 5 7021-8 ####[facility] LABORATORYCLIA [id number] [address] [place] Hematocrit (Bld) [Volume fraction] 30.6 % Low 39.0-51.0 [facility] Comment on above: Order Comment: Speci men Type: BLOOD SPECIMENOrdering Facility: [facility] Address: [address] [place] [address] Performed By: #### 5 7021-8 ####[facility] LABORATORYCLIA [id number] [address] [facility] Hemoglobin (Bld) [Mass/Vol] 9.6 g/dL Low 13.0-17.0 [facility] Comment on above: Order Comment: Speci men Type: BLOOD SPECIMENOrdering Facility: [facility] Address: [address] [place] [address] Performed By: #### 5 7021-8 ####[facility] LABORATORYCLIA [id number] [address] IMMATURE GRAN % 0.2 % Normal [facility] Comment on above: Order Comment: Speci men Type: BLOOD SPECIMENOrdering Facility: [facility] Address: [address] [place] [address] Performed By: #### 5 7021-8 ####[facility] LABORATORYCLIA [id number] [address] IMMATURE GRAN ABS <0.03 Normal <0.10 [facility] Comment on above: Order Comment: Speci men Type: BLOOD SPECIMENOrdering Facility: [facility] Address: [address] [place] [address] Performed By: #### 5 7021-8 ####[facility] LABORATORYCLIA [id number] [address] [place] Lymphocytes (Bld) [#/Vol] 1.66 10*3/uL Normal 1.00-4.00 [facility] Comment on above: Order Comment: Speci men Type: BLOOD SPECIMENOrdering Facility: [facility] Address: [address] [place] [address] Performed By: #### 5 7021-8 ####[facility] LABORATORYCLIA [id number] [address] Lymphocytes/100 WBC (Bld) 19.9 % Normal [facility] Comment on above: Order Comment: Speci men Type: BLOOD SPECIMENOrdering Facility: [facility] Address: [address] [place] [address] Performed By: #### 5 7021-8 ####[facility] LABORATORYCLIA [id number] [address] MCH (RBC) [Entitic mass] 28.9 pg Normal 26.0-34.0 [facility] Comment on above: Order Comment: Speci men Type: BLOOD SPECIMENOrdering Facility: [facility] Address: [address] [place] [address] Performed By: #### 5 7021-8 ####[facility] LABORATORYCLIA [id number] [address] MCHC (RBC) [Mass/Vol] 31.4 g/dL Normal 30.5-36.0 [facility] Comment on above: Order Comment: Speci men Type: BLOOD SPECIMENOrdering Facility: [facility] Address: [address] [place] [address] Performed By: #### 5 7021-8 ####[facility] LABORATORYCLIA [id number] [address] MCV (RBC) [Entitic vol] 92.2 fL Normal 80.0-100.0 [facility] Comment on above: Order Comment: Speci men Type: BLOOD SPECIMENOrdering Facility: [facility] Address: [address] [place] [address] Performed By: #### 5 7021-8 ####[facility] LABORATORYCLIA [id number] [address] Monocytes (Bld) [#/Vol] 0.52 10*3/uL Normal <0.87 [facility] Comment on above: Order Comment: Speci men Type: BLOOD SPECIMENOrdering Facility: [facility] Address: [address] [place] [address] Performed By: #### 5 7021-8 ####[facility] LABORATORYCLIA [id number] [address] Monocytes/100 WBC (Bld) 6.2 % Normal [facility] Comment on above: Order Comment: Speci men Type: BLOOD SPECIMENOrdering Facility: [facility] Address: [address] [place] [address] Performed By: #### 5 7021-8 ####[facility] LABORATORYCLIA [id number] [address] [place] Neutrophils (Bld) [#/Vol] 5.78 10*3/uL Normal 1.45-7.50 [facility] Comment on above: Order Comment: Speci men Type: BLOOD SPECIMENOrdering Facility: [facility] Address: [address] [place] [address] Performed By: #### 5 7021-8 ####[facility]ORATORYCLIA [id number] [address] Neutrophils/100 WBC (Bld) 69.5 % Normal [facility] Comment on above: Order Comment: Speci men Type: BLOOD SPECIMENOrdering Facility: [facility] Address: [address] [place] [address] Performed By: #### 5 7021-8 ####[facility] LABORATORYCLIA [id number] [address] Nucleated RBC (Bld) [#/Vol] 10*3/uL Normal <0.01 [facility] Comment on above: Order Comment: Speci men Type: BLOOD SPECIMENOrdering Facility: [facility] Address: [address] [place] [address] Performed By: #### 5 7021-8 ####[facility]ORATORYCLIA [id number] [address] Nucleated RBC/100 WBC (Bld) [Ratio] 0.0 /100 WBC Normal [facility] Comment on above: Order Comment: Speci men Type: BLOOD SPECIMENOrdering Facility: [facility] Address: [address] [place] [address] Performed By: #### 5 7021-8 ####[facility] LABORATORYCLIA [id number] [address] Platelet mean volume (Bld) [Entitic vol] 9.2 fL Normal 9.0-12.7 [facility] Comment on above: Order Comment: Speci men Type: BLOOD SPECIMENOrdering Facility: [facility] Address: [address] [place] [address] Performed By: #### 5 7021-8 ####[facility] LABORATORYCLIA [id number] [place] [address] [place] Platelets (Bld) [#/Vol] 379 10*3/uL Normal 150-400 [facility] Comment on above: Order Comment: Speci men Type: BLOOD SPECIMENOrdering Facility: [facility] Address: [address] [place] [address] Performed By: #### 5 7021-8 ####[facility] LABORATORYCLIA [id number] [address] STATES [facility] RBC (Bld) [#/Vol] 3.32 10*6/uL Low 4.20-6.00 [facility] Comment on above: Order Comment: Speci men Type: BLOOD SPECIMENOrdering Facility: [facility] Address: [address] [place] [address] Performed By: #### 5 7021-8 ####[facility] LABORATORYCLIA [id number] [address] [place] WBC (Bld) [#/Vol] 8.33 10*3/uL Normal 3.70-11.00 [facility] Comment on above: Order Comment: Speci men Type: BLOOD SPECIMENOrdering Facility: [facility] Address: [address] [place] [address] Performed By: #### 5 7021-8 ####[facility] LABORATORYCLIA [id number] [address] CONSULT PROGon 08-17-2021 CONSULT PROG Normal [facility] NUTRITIONon 08-17-2021 NUTRITION Normal [facility] Basic metabolic 2000 panelon 08-16-2021 Anion gap [Moles/Vol] 14 mmol/L Normal 9-18 [facility] Comment on above: Order Comment: Speci men Type: BLOOD SPECIMENOrdering Facility: [facility] Address: [address] [place] [address] Performed By: #### 2 4321-2, ####[facility]ORATORYCLIA [id number] [place] [address] [place] Calcium [Mass/Vol] 8.8 mg/dL Normal 8.5-10.2 [facility] Comment on above: Order Comment: Speci men Type: BLOOD SPECIMENOrdering Facility: [facility] Address: [address] [place] [address] Performed By: #### 2 432-2, ####[facility] LABORATORYCLIA [id number] [place] [address] [place] Chloride [Moles/Vol] 97 mmol/L Normal 97-105 [facility] Comment on above: Order Comment: Speci men Type: BLOOD SPECIMENOrdering Facility: [facility] Address: [address] [place] [address] Performed By: #### 2 4320-2, ####[facility]ORATORYCLIA [id number] [place] [address] [place] CO2 [Moles/Vol] 27 mmol/L Normal 22-30 [facility] Comment on above: Order Comment: Speci men Type: BLOOD SPECIMENOrdering Facility: [facility] Address: [address] [place] [address] Performed By: #### 2 1-2, ####[facility] LABORATORYCLIA [id number] [place] [address] [place] Creatinine [Mass/Vol] 0.50 mg/dL Low 0.73-1.22 [facility] Comment on above: Order Comment: Speci men Type: BLOOD SPECIMENOrdering Facility: [facility] Address: [address] [place] [address] Performed By: #### 2 4321-2, ####[facility]PITALCLIA [id number] [place] [address] [place] [facility] ESTIMATED GLOMERULAR FILTRATION RATE 110 mL/min/1.73m??? Normal >=60 [facility] Comment on above: Order Comment: Shira feldman Type: BLOOD SPECIMENOrdering Facility: [facility] Address: [address] [place] [address] Result Comment: Luzmaria mated Glomerular Filtration Rate [...] actual GFR. Performed By: #### 2 4321-2, ####[facility] [id number] [address] [place] Glucose [Mass/Vol] 101 mg/dL High 74-99 [facility] Comment on above: Order Comment: Shira francia Type: BLOOD SPECIMENOrdering Facility: [facility] Address: [address] [place] [address] Result Comment: The [place] [employer] (ADA) provides guidance for cutoff [...] Standards of Medical Care in Diabetes 2016, [place] [employer]. Diabetes Care. 2016.39(Suppl 1). Performed By: #### 2 4321-2, ####[facility] LABORATORYCLIA [id number] [place] [id number] [place] Potassium [Moles/Vol] 3.6 mmol/L Low 3.7-5.1 [facility] Comment on above: Order Comment: Speci men Type: BLOOD SPECIMENOrdering Facility: [facility] Address: [address] [place] [address] Performed By: #### 2 4321-2, ####[facility]ORATORYCLIA [id number] [place] [address] [place] Sodium [Moles/Vol] 138 mmol/L Normal 136-144 [facility] Comment on above: Order Comment: Speci men Type: BLOOD SPECIMENOrdering Facility: [facility] Address: [address] [place] [address] Performed By: #### 2 432-2, ####[facility] LABORATORYCLIA [id number] [place] [address] [place] [facility] Urea nitrogen [Mass/Vol] 11 mg/dL Normal 9-24 [facility] Comment on above: Order Comment: Speci men Type: BLOOD SPECIMENOrdering Facility: [facility] Address: [address] [place] [address] Performed By: #### 2 432-2, ####[facility] LABORATORYCLIA [id number] [address] [place] CASE MANAGEMon 08-16-2021 CASE MANAGEM Normal [facility] CBC W Auto Differential pane l (Bld)on 08-16-2021 Basophils (Bld) [#/Vol] 0.03 10*3/uL Normal <0.11 [facility] Comment on above: Order Comment: Speci men Type: BLOOD SPECIMENOrdering Facility: [facility] Address: [address] [place] [address] Performed By: #### 5 7021-8 ####[facility] LABORATORYCLIA [id number] [address] [place] Basophils/100 WBC (Bld) 0.4 % Normal [facility] Comment on above: Order Comment: Speci men Type: BLOOD SPECIMENOrdering Facility: [facility] Address: [address] [place] [address] Performed By: #### 5 7021-8 ####[facility] LABORATORYCLIA [id number] [address] Differential cell count method Nom (Bld) Auto Normal [facility] Comment on above: Order Comment: Speci men Type: BLOOD SPECIMENOrdering Facility: [facility] Address: [address] [place] [address] Performed By: #### 5 7021-8 ####[facility] LABORATORYCLIA [id number] [address] Eosinophils (Bld) [#/Vol] 0.19 10*3/uL Normal <0.46 [facility] Comment on above: Order Comment: Speci men Type: BLOOD SPECIMENOrdering Facility: [facility] Address: [address] [place] [address] Performed By: #### 5 7021-8 ####[facility] LABORATORYCLIA [id number] [address] Eosinophils/100 WBC (Bld) 2.5 % Normal [facility] Comment on above: Order Comment: Speci men Type: BLOOD SPECIMENOrdering Facility: [facility] Address: [address] [place] [address] Performed By: #### 5 7021-8 ####[facility] LABORATORYCLIA [id number] [address] Erythrocyte distribution width (RBC) [Ratio] 17.1 % High 11.5-15.0 [facility] Comment on above: Order Comment: Speci men Type: BLOOD SPECIMENOrdering Facility: [facility] Address: [address] [place] [address] Performed By: #### 5 7021-8 ####[facility] LABORATORYCLIA [id number] [address] [place] Hematocrit (Bld) [Volume fraction] 29.2 % Low 39.0-51.0 [facility] Comment on above: Order Comment: Speci men Type: BLOOD SPECIMENOrdering Facility: [facility] Address: [address] [place] [address] Performed By: #### 5 7021-8 ####[facility] LABORATORYCLIA [id number] [address] [place] [facility] Hemoglobin (Bld) [Mass/Vol] 9.0 g/dL Low 13.0-17.0 [facility] Comment on above: Order Comment: Speci men Type: BLOOD SPECIMENOrdering Facility: [facility] Address: [address] [place] [address] Performed By: #### 5 7021-8 ####[facility] LABORATORYCLIA [id number] [address] [facility] IMMATURE GRAN % 0.3 % Normal [facility] Comment on above: Order Comment: Speci men Type: BLOOD SPECIMENOrdering Facility: [facility] Address: [address] [place] [address] Performed By: #### 5 7021-8 ####[facility] LABORATORYCLIA [id number] [address] IMMATURE GRAN ABS <0.03 Normal <0.10 [facility] Comment on above: Order Comment: Speci men Type: BLOOD SPECIMENOrdering Facility: [facility] Address: [address] [place] [address] Performed By: #### 5 7021-8 ####[facility] LABORATORYCLIA [id number] [address] [place] Lymphocytes (Bld) [#/Vol] 1.41 10*3/uL Normal 1.00-4.00 [facility] Comment on above: Order Comment: Speci men Type: BLOOD SPECIMENOrdering Facility: [facility] Address: [address] [place] [address] Performed By: #### 5 7021-8 ####[facility] LABORATORYCLIA [id number] [address] Lymphocytes/100 WBC (Bld) 18.4 % Normal [facility] Comment on above: Order Comment: Speci men Type: BLOOD SPECIMENOrdering Facility: [facility] Address: [address] [place] [address] Performed By: #### 5 7021-8 ####[facility] LABORATORYCLIA [id number] [address] [facility] (RBC) [Entitic mass] 28.0 pg Normal 26.0-34.0 [facility] Comment on above: Order Comment: Speci men Type: BLOOD SPECIMENOrdering Facility: [facility] Address: [address] [place] [address] Performed By: #### 5 7021-8 ####[facility] LABORATORYCLIA [id number] [address] [place] MCHC (RBC) [Mass/Vol] 30.8 g/dL Normal 30.5-36.0 [facility] Comment on above: Order Comment: Speci men Type: BLOOD SPECIMENOrdering Facility: [facility] Address: [address] [place] [address] Performed By: #### 5 7021-8 ####[facility] LABORATORYCLIA [id number] [address] [place] MCV (RBC) [Entitic vol] 91.0 fL Normal 80.0-100.0 [facility] Comment on above: Order Comment: Speci men Type: BLOOD SPECIMENOrdering Facility: [facility] Address: [address] [place] [address] Performed By: #### 5 7021-8 ####[facility] LABORATORYCLIA [id number] [address] Monocytes (Bld) [#/Vol] 0.47 10*3/uL Normal <0.87 [facility] Comment on above: Order Comment: Speci men Type: BLOOD SPECIMENOrdering Facility: [facility] Address: [address] [address] Performed By: #### 5 7021-8 ####[facility]ORATORYCLIA [id number] [address] [place] Monocytes/100 WBC (Bld) 6.1 % Normal [facility] Comment on above: Order Comment: Speci men Type: BLOOD SPECIMENOrdering Facility: [facility] Address: [address] [place] [address] Performed By: #### 5 7021-8 ####[facility]ORATORYCLIA [id number] [place] [address] [place] Neutrophils (Bld) [#/Vol] 5.55 10*3/uL Normal 1.45-7.50 [facility] Comment on above: Order Comment: Speci men Type: BLOOD SPECIMENOrdering Facility: [facility] Address: [address] [place] [address] Performed By: #### 5 7021-8 ####[facility] LABORATORYCLIA [id number] [address] STATES [facility] Neutrophils/100 WBC (Bld) 72.3 % Normal [facility] Comment on above: Order Comment: Speci men Type: BLOOD SPECIMENOrdering Facility: [facility] Address: [address] [place] [address] Performed By: #### 5 7021-8 ####[facility]ORATORYCLIA [id number] [place] [address] [place] Nucleated RBC (Bld) [#/Vol] 10*3/uL Normal <0.01 [facility] Comment on above: Order Comment: Speci men Type: BLOOD SPECIMENOrdering Facility: [facility] Address: [address] [place] [address] Performed By: #### 5 7021-8 ####[facility]ORATORYCLIA [id number] [address] [place] Nucleated RBC/100 WBC (Bld) [Ratio] 0.0 /100 WBC Normal [facility] Comment on above: Order Comment: Speci men Type: BLOOD SPECIMENOrdering Facility: [facility] Address: [address] [place] [address] Performed By: #### 5 7021-8 ####[facility] LABORATORYCLIA [id number] [address] [place] Platelet mean volume (Bld) [Entitic vol] 9.3 fL Normal 9.0-12.7 [facility] Comment on above: Order Comment: Speci men Type: BLOOD SPECIMENOrdering Facility: [facility] Address: [address] [place] [address] Performed By: #### 5 7021-8 ####[facility] LABORATORYCLIA [id number] [address] [place] Platelets (Bld) [#/Vol] 319 10*3/uL Normal 150-400 [facility] Comment on above: Order Comment: Speci men Type: BLOOD SPECIMENOrdering Facility: [facility] Address: [address] [place] [address] Performed By: #### 5 7021-8 ####[facility] LABORATORYCLIA [id number] [place] [address] [place] RBC (Bld) [#/Vol] 3.21 10*6/uL Low 4.20-6.00 [facility] Comment on above: Order Comment: Speci men Type: BLOOD SPECIMENOrdering Facility: [facility] Address: [address] [place], [place] [address] Performed By: #### 5 7021-8 ####[facility] LABORATORYCLIA [id number] [place] [address] [place] WBC (Bld) [#/Vol] 7.67 10*3/uL Normal 3.70-11.00 [facility] Comment on above: Order Comment: Speci men Type: BLOOD SPECIMENOrdering Facility: [facility] Address: [address] [place] [address] Performed By: #### 5 7021-8 ####[facility]ORATORYCLIA [id number] [address] [place] Basophils (Bld) [#/Vol] 0.04 10*3/uL Normal <0.11 [facility] Comment on above: Order Comment: Speci men Type: BLOOD SPECIMENOrdering Facility: [facility] Address: [address] [place] [address] Performed By: #### 5 7021-8 ####[facility]ORATORYCLIA [id number] [address] Basophils/100 WBC (Bld) 0.5 % Normal [facility] Comment on above: Order Comment: Speci men Type: BLOOD SPECIMENOrdering Facility: [facility] Address: [address] [place] [address] Performed By: #### 5 7021-8 ####[facility] LABORATORYCLIA [id number] [address] Differential cell count method Nom (Bld) Auto Normal [facility] Comment on above: Order Comment: Speci men Type: BLOOD SPECIMENOrdering Facility: [facility] Address: [address] [place] [address] Performed By: #### 5 7021-8 ####[facility]ORATORYCLIA [id number] [address] [place] Eosinophils (Bld) [#/Vol] 0.19 10*3/uL Normal <0.46 [facility] Comment on above: Order Comment: Speci men Type: BLOOD SPECIMENOrdering Facility: [facility] Address: [address] [address] Performed By: #### 5 7021-8 ####[facility]ORATORYCLIA [id number] [address] Eosinophils/100 WBC (Bld) 2.5 % Normal [facility] Comment on above: Order Comment: Speci men Type: BLOOD SPECIMENOrdering Facility: [facility] Address: [address] [place] [address] Performed By: #### 5 7021-8 ####[facility] LABORATORYCLIA [id number] [address] Erythrocyte distribution width (RBC) [Ratio] 17.2 % High 11.5-15.0 [facility] Comment on above: Order Comment: Speci men Type: BLOOD SPECIMENOrdering Facility: [facility] Address: [address] [place] [address] Performed By: #### 5 7021-8 ####[facility] LABORATORYCLIA [id number] [address] [facility] Hematocrit (Bld) [Volume fraction] 29.5 % Low 39.0-51.0 [facility] Comment on above: Order Comment: Speci men Type: BLOOD SPECIMENOrdering Facility: [facility] Address: [address] [place] [address] Performed By: #### 5 7021-8 ####[facility] LABORATORYCLIA [id number] [address] Hemoglobin (Bld) [Mass/Vol] 9.2 g/dL Low 13.0-17.0 [facility] Comment on above: Order Comment: Speci men Type: BLOOD SPECIMENOrdering Facility: [facility] Address: [address] [place] [address] Performed By: #### 5 7021-8 ####[facility] LABORATORYCLIA [id number] [address] [place] IMMATURE GRAN % 0.4 % Normal [facility] Comment on above: Order Comment: Speci men Type: BLOOD SPECIMENOrdering Facility: [facility] Address: [address] [place] [address] Performed By: #### 5 7021-8 ####[facility] LABORATORYCLIA [id number] [address] IMMATURE GRAN ABS 0.03 k/uL Normal <0.10 [facility] Comment on above: Order Comment: Speci men Type: BLOOD SPECIMENOrdering Facility: [facility] Address: [address] [place] [address] Performed By: #### 5 7021-8 ####[facility] LABORATORYCLIA [id number] [address] [place] Lymphocytes (Bld) [#/Vol] 1.50 10*3/uL Normal 1.00-4.00 [facility] Comment on above: Order Comment: Speci men Type: BLOOD SPECIMENOrdering Facility: [facility] Address: [address] [place] [address] Performed By: #### 5 7021-8 ####[facility] LABORATORYCLIA [id number] [address] Lymphocytes/100 WBC (Bld) 19.7 % Normal [facility] Comment on above: Order Comment: Speci men Type: BLOOD SPECIMENOrdering Facility: [facility] Address: [address] [place] [address] Performed By: #### 5 7021-8 ####[facility] LABORATORYCLIA [id number] [address] [place] MCH (RBC) [Entitic mass] 28.3 pg Normal 26.0-34.0 [facility] Comment on above: Order Comment: Speci men Type: BLOOD SPECIMENOrdering Facility: [facility] Address: [address] [place] [address] Performed By: #### 5 7021-8 ####[facility] LABORATORYCLIA [id number] [address] [place] MCHC (RBC) [Mass/Vol] 31.2 g/dL Normal 30.5-36.0 [facility] Comment on above: Order Comment: Speci men Type: BLOOD SPECIMENOrdering Facility: [facility] Address: [address] [place] [address] Performed By: #### 5 7021-8 ####[facility] LABORATORYCLIA [id number] [place] [address] [place] MCV (RBC) [Entitic vol] 90.8 fL Normal 80.0-100.0 [facility] Comment on above: Order Comment: Speci men Type: BLOOD SPECIMENOrdering Facility: [facility] Address: [address] [place] [address] Performed By: #### 5 7021-8 ####[facility] LABORATORYCLIA [id number] [place] [address] [place] Monocytes (Bld) [#/Vol] 0.49 10*3/uL Normal <0.87 [facility] Comment on above: Order Comment: Speci men Type: BLOOD SPECIMENOrdering Facility: [facility] Address: [address] [place] [address] Performed By: #### 5 7021-8 ####[facility] LABORATORYCLIA [id number] [address] [place] Monocytes/100 WBC (Bld) 6.4 % Normal [facility] Comment on above: Order Comment: Speci men Type: BLOOD SPECIMENOrdering Facility: [facility] Address: [address] [place] [address] Performed By: #### 5 7021-8 ####[facility] LABORATORYCLIA [id number] [address] [place] Neutrophils (Bld) [#/Vol] 5.38 10*3/uL Normal 1.45-7.50 [facility] Comment on above: Order Comment: Speci men Type: BLOOD SPECIMENOrdering Facility: [facility] Address: [address] [place] [address] Performed By: #### 5 7021-8 ####[facility]ORATORYCLIA [id number] [address] [place] Neutrophils/100 WBC (Bld) 70.5 % Normal [facility] Comment on above: Order Comment: Speci men Type: BLOOD SPECIMENOrdering Facility: [facility] Address: [address] [place] [address] Performed By: #### 5 7021-8 ####[facility] LABORATORYCLIA [id number] [address] [place] Nucleated RBC (Bld) [#/Vol] 10*3/uL Normal <0.01 [facility] Comment on above: Order Comment: Speci men Type: BLOOD SPECIMENOrdering Facility: [facility] Address: [address] [place] [address] Performed By: #### 5 7021-8 ####[facility] LABORATORYCLIA [id number] [address] [place] Nucleated RBC/100 WBC (Bld) [Ratio] 0.0 /100 WBC Normal [facility] Comment on above: Order Comment: Speci men Type: BLOOD SPECIMENOrdering Facility: [facility] Address: [address] [place] [address] Performed By: #### 5 7021-8 ####[facility] LABORATORYCLIA [id number] [address] [place] Platelet mean volume (Bld) [Entitic vol] 9.0 fL Normal 9.0-12.7 [facility] Comment on above: Order Comment: Speci men Type: BLOOD SPECIMENOrdering Facility: [facility] Address: [address] [place] [address] Performed By: #### 5 7021-8 ####[facility] LABORATORYCLIA [id number] [address] [place] Platelets (Bld) [#/Vol] 316 10*3/uL Normal 150-400 [facility] Comment on above: Order Comment: Speci men Type: BLOOD SPECIMENOrdering Facility: [facility] Address: [address] [place] [address] Performed By: #### 5 7021-8 ####[facility] LABORATORYCLIA [id number] [address] [place] RBC (Bld) [#/Vol] 3.25 10*6/uL Low 4.20-6.00 [facility] Comment on above: Order Comment: Speci men Type: BLOOD SPECIMENOrdering Facility: [facility] Address: [address] [place] [address] Performed By: #### 5 7021-8 ####[facility] LABORATORYCLIA [id number] [address] [place] WBC (Bld) [#/Vol] 7.63 10*3/uL Normal 3.70-11.00 [facility] Comment on above: Order Comment: Speci men Type: BLOOD SPECIMENOrdering Facility: [facility] Address: [address] [place] [address] Performed By: #### 5 7021-8 ####[facility] LABORATORYCLIA [id number] [address] Basophils (Bld) [#/Vol] Normal <0.11 [facility] Comment on above: Order Comment: Speci men Type: BLOOD SPECIMENOrdering Facility: [facility] Address: [address] [place] [address] Result Comment: Carolina Owens RN informed lab after results autoverified that she rd on the wrong patient. Lab to credit. Nurse to redraw on correct patient.Corrected result: Previously reported as 0.04 k/uL on 08/16/2021 at 4:44 AM EDT. Performed By: #### 5 7021-8 ####[facility] LABORATORYCLIA [id number] [address] Basophils/100 WBC (Bld) Normal [facility] Comment on above: Order Comment: Speci [facility] Type: BLOOD SPECIMENOrdering Facility: [facility] Address: [address] [place] [address] Result Comment: Tati ected result: Previously reported as 0.4 % on 08/16/2021 at 4:44 AM EDT. Performed By: #### 5 7021-8 ####[facility] LABORATORYCLIA [id number] [address] [place] CBC W Differential panel, method unspecified (Bld) Normal [facility] Comment on above: Order Comment: Speci men Type: BLOOD SPECIMENOrdering Facility: [facility] Address: [address] [place] [address] Result Comment: Carolina Owens RN informed lab after results autoverified that she rd on the wrong patient. Lab to credit. Nurse to redraw on correct patient. Performed By: #### 5 7021-8 ####[facility] LABORATORYCLIA [id number] [place] [address] [place] Differential cell count method Nom (Bld) Normal [facility] Comment on above: Order Comment: Speci men Type: BLOOD SPECIMENOrdering Facility: [facility] Address: [address] [place] [address] Result Comment: Carolina Owens RN informed lab after results autoverified that she rd on the wrong patient. Lab to credit. Nurse to redraw on correct patient.Corrected result: Previously reported as Auto on 08/16/2021 at 4:44 AM EDT. Performed By: #### 5 7021-8 ####[facility] LABORATORYCLIA [id number] [place] [address] [place] Eosinophils (Bld) [#/Vol] Normal <0.46 [facility] Comment on above: Order Comment: Speci men Type: BLOOD SPECIMENOrdering Facility: [facility] Address: [address] [place] [address] Result Comment: Carolina Owens RN informed lab after results autoverified that she rd on the wrong patient. Lab to credit. Nurse to redraw on correct patient.Corrected result: Previously reported as 0.07 k/uL on 08/16/2021 at 4:44 AM EDT. Performed By: #### 5 7021-8 ####[facility] LABORATORYCLIA [id number] [place] [address] [place] Eosinophils/100 WBC (Bld) Normal [facility] Comment on above: Order Comment: Speci men Type: BLOOD SPECIMENOrdering Facility: [facility] Address: [address] [place] [address] Result Comment: Carolina Owens RN informed lab after results autoverified that she rd on the wrong patient. Lab to credit. Nurse to redraw on correct patient.Corrected result: Previously reported as 0.7 % on 08/16/2021 at 4:44 AM EDT. Performed By: #### 5 7021-8 ####[facility] LABORATORYCLIA [id number] [address] [place] [facility] Erythrocyte distribution width (RBC) [Ratio] Normal 11.5-15.0 [facility] Comment on above: Order Comment: Speci men Type: BLOOD SPECIMENOrdering Facility: [facility] Address: [address] [place] [address] Result Comment: Carolina Owens RN informed lab after results autoverified that she rd on the wrong patient. Lab to credit. Nurse to redraw on correct patient.Corrected result: Previously reported as 14.2 % on 08/16/2021 at 4:44 AM EDT. Performed By: #### 5 7021-8 ####[facility] LABORATORYCLIA [id number] [address] [facility] Hematocrit (Bld) [Volume fraction] Normal 39.0-51.0 [facility] Comment on above: Order Comment: Speci men Type: BLOOD SPECIMENOrdering Facility: [facility] Address: [address] [place] [address] Result Comment: Carolina Owens RN informed lab after results autoverified that she rd on the wrong patient. Lab to credit. Nurse to redraw on correct patient.Corrected result: Previously reported as 34.3 % on 08/16/2021 at 4:44 AM EDT. Performed By: #### 5 7021-8 ####[facility] LABORATORYCLIA [id number] [address] [place] Hemoglobin (Bld) [Mass/Vol] Normal 13.0-17.0 [facility] Comment on above: Order Comment: Speci men Type: BLOOD SPECIMENOrdering Facility: [facility] Address: [address] [place] [address] Result Comment: Carolina Owens RN informed lab after results autoverified that she rd on the wrong patient. Lab to credit. Nurse to redraw on correct patient.Corrected result: Previously reported as 11.2 g/dL on 08/16/2021 at 4:44 AM EDT. Performed By: #### 5 7021-8 ####[facility] LABORATORYCLIA [id number] [address] [place] [facility] IMMATURE GRAN % Normal [facility] Comment on above: Order Comment: Speci men Type: BLOOD SPECIMENOrdering Facility: [facility] Address: [address] [place] [address] Result Comment: Carolina Owens RN informed lab after results autoverified that she rd on the wrong patient. Lab to credit. Nurse to redraw on correct patient.Corrected result: Previously reported as 0.8 % on 08/16/2021 at 4:44 AM EDT. Performed By: #### 5 7021-8 ####[facility] LABORATORYCLIA [id number] [address] IMMATURE GRAN ABS Normal <0.10 [facility] Comment on above: Order Comment: Speci men Type: BLOOD SPECIMENOrdering Facility: [facility] Address: [address] [place] [address] Result Comment: Tati ected result: Previously reported as 0.08 k/uL on 08/16/2021 at 4:44 AM EDT. Performed By: #### 5 7021-8 ####[facility] LABORATORYCLIA [id number] [place] [address] [place] Lymphocytes (Bld) [#/Vol] Normal 1.00-4.00 [facility] Comment on above: Order Comment: Speci men Type: BLOOD SPECIMENOrdering Facility: [facility] Address: [address] [place] [address] Result Comment: Carolina Owens RN informed lab after results autoverified that she rd on the wrong patient. Lab to credit. Nurse to redraw on correct patient.Corrected result: Previously reported as 1.17 k/uL on 08/16/2021 at 4:44 AM EDT. Performed By: #### 5 7021-8 ####[facility] LABORATORYCLIA [id number] [address] Lymphocytes/100 WBC (Bld) Normal [facility] Comment on above: Order Comment: Speci men Type: BLOOD SPECIMENOrdering Facility: [facility] Address: [address] [place] [address] Result Comment: Carolina Owens RN informed lab after results autoverified that she rd on the wrong patient. Lab to credit. Nurse to redraw on correct patient.Corrected result: Previously reported as 12.0 % on 08/16/2021 at 4:44 AM EDT. Performed By: #### 5 7021-8 ####[facility] LABORATORYCLIA [id number] [address] [place] [facility] MCHC (RBC) [Mass/Vol] Normal 30.5-36.0 [facility] Comment on above: Order Comment: Speci francia Type: BLOOD SPECIMENOrdering Facility: [facility] Address: [address] [place] [address] Result Comment: Carolina Owens RN informed lab after results autoverified that she rd on the wrong patient. Lab to credit. Nurse to redraw on correct patient.Corrected result: Previously reported as 32.7 g/dL on 08/16/2021 at 4:44 AM EDT. Performed By: #### 5 7021-8 ####[facility] LABORATORYCLIA [id number] [address] [facility] MCV (RBC) [Entitic vol] Normal 80.0-100.0 [facility] Comment on above: Order Comment: Speci men Type: BLOOD SPECIMENOrdering Facility: [facility] Address: [address] [place] [address] Result Comment: Carolina Owens RN informed lab after results autoverified that she rd on the wrong patient. Lab to credit. Nurse to redraw on correct patient.Corrected result: Previously reported as 94.2 fL on 08/16/2021 at 4:44 AM EDT. Performed By: #### 5 7021-8 ####[facility] LABORATORYCLIA [id number] [address] [place] Monocytes (Bld) [#/Vol] Normal <0.87 [facility] Comment on above: Order Comment: Speci [facility] Type: BLOOD SPECIMENOrdering Facility: [facility] Address: [address] [place] [address] Result Comment: Carolina Owens RN informed lab after results autoverified that she rd on the wrong patient. Lab to credit. Nurse to redraw on correct patient.Corrected result: Previously reported as 0.99 k/uL on 08/16/2021 at 4:44 AM EDT. Performed By: #### 5 7021-8 ####[facility] LABORATORYCLIA [id number] [address] [place] Monocytes/100 WBC (Bld) Normal [facility] Comment on above: Order Comment: Speci [facility] Type: BLOOD SPECIMENOrdering Facility: [facility] Address: [address] [place] [address] Result Comment: Carolina Owens RN informed lab after results autoverified that she rd on the wrong patient. Lab to credit. Nurse to redraw on correct patient.Corrected result: Previously reported as 10.2 % on 08/16/2021 at 4:44 AM EDT. Performed By: #### 5 7021-8 ####[facility] LABORATORYCLIA [id number] [address] [place] Neutrophils (Bld) [#/Vol] Normal 1.45-7.50 [facility] Comment on above: Order Comment: Speci [facility] Type: BLOOD SPECIMENOrdering Facility: [facility] Address: [address] [place] [address] Result Comment: Carolina Owens RN informed lab after results autoverified that she rd on the wrong patient. Lab to credit. Nurse to redraw on correct patient.Corrected result: Previously reported as 7.40 k/uL on 08/16/2021 at 4:44 AM EDT. Performed By: #### [id number] ####[facility] LABORATORYCLIA [id number] [address] Neutrophils/100 WBC (Bld) Normal [facility] Comment on above: Order Comment: Speci francia Type: BLOOD SPECIMENOrdering Facility: [facility] [facility] Address: [address] [place] [address] Result Comment: Carolina Owens RN informed lab after results autoverified that she rd on the wrong patient. Lab to credit. Nurse to redraw on correct patient.Corrected result: Previously reported as 75.9 % on 08/16/2021 at 4:44 AM EDT. Performed By: #### 5 7021-8 ####[facility] LABORATORYCLIA [id number] [address] [place] Platelet mean volume (Bld) [Entitic vol] Normal 9.0-12.7 [facility] Comment on above: Order Comment: Speci [facility] Type: BLOOD SPECIMENOrdering Facility: [facility] Address: [address] [place] [address] Result Comment: Carolina Owens RN informed lab after results autoverified that she rd on the wrong patient. Lab to credit. Nurse to redraw on correct patient.Corrected result: Previously reported as 9.1 fL on 08/16/2021 at 4:44 AM EDT. Performed By: #### 5 7021-8 ####[facility] LABORATORYCLIA [id number] [address] [place] Platelets (Bld) [#/Vol] Normal 150-400 [facility] Comment on above: Order Comment: Speci [facility] Type: BLOOD SPECIMENOrdering Facility: [facility] Address: [address] [place] [address] Result Comment: Carolina Owens RN informed lab after results autoverified that she rd on the wrong patient. Lab to credit. Nurse to redraw on correct patient.Corrected result: Previously reported as 338 k/uL on 08/16/2021 at 4:44 AM EDT. Performed By: #### 5 7021-8 ####[facility] LABORATORYCLIA [id number] [address] RBC (Bld) [#/Vol] Normal 4.20-6.00 [facility] Comment on above: Order Comment: Speci men Type: BLOOD SPECIMENOrdering Facility: [facility] Address: [address] [place] [address] Result Comment: Carolina Owens RN informed lab after results autoverified that she rd on the wrong patient. Lab to credit. Nurse to redraw on correct patient.Corrected result: Previously reported as 3.64 m/uL on 08/16/2021 at 4:44 AM EDT. Performed By: #### 5 7021-8 ####[facility] LABORATORYCLIA [id number] [address] WBC (Bld) [#/Vol] Normal 3.70-11.00 [facility] Comment on above: Order Comment: Speci men Type: BLOOD SPECIMENOrdering Facility: [facility] Address: [address] [place] [address] Result Comment: Carolina Owens RN informed lab after results autoverified that she rd on the wrong patient. Lab to credit. Nurse to redraw on correct patient.Corrected result: Previously reported as 9.75 k/uL on 08/16/2021 at 4:44 AM EDT. Performed By: #### 5 7021-8 ####[facility] LABORATORYCLIA [id number] [address] CONSULT PROGon 08-16-2021 CONSULT PROG Normal [facility] Magnesium SerPl-mCncon 08-16 Magnesium [Mass/Vol] 1.8 mg/dL Normal 1.7-2.3 [facility] Comment on above: Order Comment: Speci men Type: BLOOD SPECIMENOrdering Facility: [facility] Address: [address] [place] [address] Performed By: #### 2 4321-2, 01828-5 ####[facility] LABORATORYCLIA [id number] [place] [address] [place] NURSING PROGon 08-16-2021 NURSING PROG Normal [facility] Basic metabolic 2000 panelon 08-15-2021 Anion gap [Moles/Vol] 13 mmol/L Normal 9-18 [facility] Comment on above: Order Comment: Speci men Type: BLOOD SPECIMENOrdering Facility: [facility] Address: [address] [place] [address] Performed By: #### 2 4321-2 ####[facility] LABORATORYCLIA [id number] [place] [address] [place] Calcium [Mass/Vol] 9.0 mg/dL Normal 8.5-10.2 [facility] Comment on above: Order Comment: Speci men Type: BLOOD SPECIMENOrdering Facility: [facility] Address: [address] [place] [address] Performed By: #### 2 4321-2 ####[facility] LABORATORYCLIA [id number] [place] [address] [place] Chloride [Moles/Vol] 95 mmol/L Low 97-105 [facility] Comment on above: Order Comment: Speci men Type: BLOOD SPECIMENOrdering Facility: [facility] Address: [address] [place] [address] Performed By: #### 2 4321-2 ####[facility] LABORATORYCLIA [id number] [place] [address] [place] CO2 [Moles/Vol] 28 mmol/L Normal 22-30 [facility] Comment on above: Order Comment: Speci men Type: BLOOD SPECIMENOrdering Facility: [facility] Address: [address] [place] [address] Performed By: #### 2 4321-2 ####[facility] LABORATORYCLIA [id number] [place] [address] [place] Creatinine [Mass/Vol] 0.50 mg/dL Low 0.73-1.22 [facility] Comment on above: Order Comment: Shira feldman Type: BLOOD SPECIMENOrdering Facility: [facility] Address: [address] [place] [address] Performed By: #### 2 4321-2 ####[facility] [id number] [address] [place] ESTIMATED GLOMERULAR FILTRATION RATE 110 mL/min/1.73m??? Normal >=60 [facility] Comment on above: Order Comment: Johncara feldman Type: BLOOD SPECIMENOrdering Facility: [facility] Address: [address] [place] [address] Result Comment: Luzmaria mated Glomerular Filtration Rate [...] actual GFR. Performed By: #### 2 4321-2 ####[facility] [id number] [place] [address] [place] Glucose [Mass/Vol] 106 mg/dL High 74-99 [facility] Comment on above: Order Comment: Shira feldman Type: BLOOD SPECIMENOrdering Facility: [facility] Address: [address] [place] [address] Result Comment: The [place] [employer] (ADA) provides guidance for cutoff [...] Standards of Medical Care in Diabetes 2016, [place] [employer]. Diabetes Care. 2016.39(Suppl 1). Performed By: #### 2 4321-2 ####[facility] LABORATORYCLIA [id number] [place] [address] [place] Potassium [Moles/Vol] 3.3 mmol/L Low 3.7-5.1 [facility] Comment on above: Order Comment: Speci men Type: BLOOD SPECIMENOrdering Facility: [facility] Address: [address] [place] [address] Performed By: #### 2 4321-2 ####[facility] LABORATORYCLIA [id number] [place] [address] [place] Sodium [Moles/Vol] 136 mmol/L Normal 136-144 [facility] Comment on above: Order Comment: Speci men Type: BLOOD SPECIMENOrdering Facility: [facility] Address: [address] [place] [address] Performed By: #### 2 4321-2 ####[facility] LABORATORYCLIA [id number] [address] [place] Urea nitrogen [Mass/Vol] 11 mg/dL Normal 9-24 [facility] Comment on above: Order Comment: Speci men Type: BLOOD SPECIMENOrdering Facility: [facility] Address: [address] [place] [address] Performed By: #### 2 4321-2 ####[facility] LABORATORYCLIA [id number] [place] [address] [place] CASE MANAGEMon 08-15-2021 CASE MANAGEM Normal [facility] CBC W Auto Differential pane l (Bld)on 08-15-2021 Basophils (Bld) [#/Vol] 0.03 10*3/uL Normal <0.11 [facility] Comment on above: Order Comment: Speci men Type: BLOOD SPECIMENOrdering Facility: [facility] Address: [address] [place] [address] Performed By: #### 5 7021-8 ####[facility] LABORATORYCLIA [id number] [address] [place] Basophils/100 WBC (Bld) 0.4 % Normal [facility] Comment on above: Order Comment: Speci men Type: BLOOD SPECIMENOrdering Facility: [facility] Address: [address] [place] [address] Performed By: #### 5 7021-8 ####[facility] LABORATORYCLIA [id number] [address] Differential cell count method Nom (Bld) Auto Normal [facility] Comment on above: Order Comment: Speci men Type: BLOOD SPECIMENOrdering Facility: [facility] Address: [address] [place] [address] Performed By: #### 5 7021-8 ####[facility] LABORATORYCLIA [id number] [address] Eosinophils (Bld) [#/Vol] 0.20 10*3/uL Normal <0.46 [facility] Comment on above: Order Comment: Speci men Type: BLOOD SPECIMENOrdering Facility: [facility] Address: [address] [place] [address] Performed By: #### 5 7021-8 ####[facility] LABORATORYCLIA [id number] [address] Eosinophils/100 WBC (Bld) 2.5 % Normal [facility] Comment on above: Order Comment: Speci men Type: BLOOD SPECIMENOrdering Facility: [facility] Address: [address] [place] [address] Performed By: #### 5 7021-8 ####[facility] LABORATORYCLIA [id number] [address] Erythrocyte distribution width (RBC) [Ratio] 16.7 % High 11.5-15.0 [facility] Comment on above: Order Comment: Speci men Type: BLOOD SPECIMENOrdering Facility: [facility] Address: [address] [place] [address] Performed By: #### 5 7021-8 ####[facility] LABORATORYCLIA [id number] [address] Hematocrit (Bld) [Volume fraction] 30.3 % Low 39.0-51.0 [facility] Comment on above: Order Comment: Speci men Type: BLOOD SPECIMENOrdering Facility: [facility] Address: [address] [place] [address] Performed By: #### 5 7021-8 ####[facility] LABORATORYCLIA [id number] [address] [facility] Hemoglobin (Bld) [Mass/Vol] 9.4 g/dL Low 13.0-17.0 [facility] Comment on above: Order Comment: Speci men Type: BLOOD SPECIMENOrdering Facility: [facility] Address: [address] [place] [address] Performed By: #### 5 7021-8 ####[facility] LABORATORYCLIA [id number] [address] IMMATURE GRAN % 0.4 % Normal [facility] Comment on above: Order Comment: Speci men Type: BLOOD SPECIMENOrdering Facility: [facility] Address: [address] [place] [address] Performed By: #### 5 7021-8 ####[facility] LABORATORYCLIA [id number] [address] IMMATURE GRAN ABS 0.03 k/uL Normal <0.10 [facility] Comment on above: Order Comment: Speci men Type: BLOOD SPECIMENOrdering Facility: [facility] Address: [address] [place] [address] Performed By: #### 5 7021-8 ####[facility] LABORATORYCLIA [id number] [address] Lymphocytes (Bld) [#/Vol] 1.50 10*3/uL Normal 1.00-4.00 [facility] Comment on above: Order Comment: Speci men Type: BLOOD SPECIMENOrdering Facility: [facility] Address: [address] [place] [address] Performed By: #### 5 7021-8 ####[facility] LABORATORYCLIA [id number] [address] Lymphocytes/100 WBC (Bld) 18.5 % Normal [facility] Comment on above: Order Comment: Speci men Type: BLOOD SPECIMENOrdering Facility: [facility] Address: [address] [place] [address] Performed By: #### 5 7021-8 ####[facility] LABORATORYCLIA [id number] [address] MCH (RBC) [Entitic mass] 29.0 pg Normal 26.0-34.0 [facility] Comment on above: Order Comment: Speci men Type: BLOOD SPECIMENOrdering Facility: [facility] Address: [address] [place] [address] Performed By: #### 5 7021-8 ####[facility] LABORATORYCLIA [id number] [address] MCHC (RBC) [Mass/Vol] 31.0 g/dL Normal 30.5-36.0 [facility] Comment on above: Order Comment: Speci men Type: BLOOD SPECIMENOrdering Facility: [facility] Address: [address] [place] [address] Performed By: #### 5 7021-8 ####[facility] LABORATORYCLIA [id number] [address] MCV (RBC) [Entitic vol] 93.5 fL Normal 80.0-100.0 [facility] Comment on above: Order Comment: Speci men Type: BLOOD SPECIMENOrdering Facility: [facility] Address: [address] [place] [address] Performed By: #### 5 7021-8 ####[facility] LABORATORYCLIA [id number] [address] Monocytes (Bld) [#/Vol] 0.47 10*3/uL Normal <0.87 [facility] Comment on above: Order Comment: Speci men Type: BLOOD SPECIMENOrdering Facility: [facility] Address: [address] [place] [address] Performed By: #### 5 7021-8 ####[facility] LABORATORYCLIA [id number] [address] Monocytes/100 WBC (Bld) 5.8 % Normal [facility] Comment on above: Order Comment: Speci men Type: BLOOD SPECIMENOrdering Facility: [facility] Address: [address] [place] [address] Performed By: #### 5 7021-8 ####[facility] LABORATORYCLIA [id number] [address] [place] Neutrophils (Bld) [#/Vol] 5.87 10*3/uL Normal 1.45-7.50 [facility] Comment on above: Order Comment: Speci men Type: BLOOD SPECIMENOrdering Facility: [facility] Address: [address] [place] [address] Performed By: #### 5 7021-8 ####[facility]ORATORYCLIA [id number] [address] STATES [facility] Neutrophils/100 WBC (Bld) 72.4 % Normal [facility] Comment on above: Order Comment: Speci men Type: BLOOD SPECIMENOrdering Facility: [facility] Address: [address] [place] [address] Performed By: #### 5 7021-8 ####[facility] LABORATORYCLIA [id number] [address] [place] Nucleated RBC (Bld) [#/Vol] 10*3/uL Normal <0.01 [facility] Comment on above: Order Comment: Speci men Type: BLOOD SPECIMENOrdering Facility: [facility] Address: [address] [place] [address] Performed By: #### 5 7021-8 ####[facility]ORATORYCLIA [id number] [address] [place] Nucleated RBC/100 WBC (Bld) [Ratio] 0.0 /100 WBC Normal [facility] Comment on above: Order Comment: Speci men Type: BLOOD SPECIMENOrdering Facility: [facility] Address: [address] [place] [address] Performed By: #### 5 7021-8 ####[facility] LABORATORYCLIA [id number] [address] [place] Platelet mean volume (Bld) [Entitic vol] 9.4 fL Normal 9.0-12.7 [facility] Comment on above: Order Comment: Speci men Type: BLOOD SPECIMENOrdering Facility: [facility] Address: [address] [place] [address] Performed By: #### 5 7021-8 ####[facility] LABORATORYCLIA [id number] [address] [place] Platelets (Bld) [#/Vol] 290 10*3/uL Normal 150-400 [facility] Comment on above: Order Comment: Speci men Type: BLOOD SPECIMENOrdering Facility: [facility] Address: [address] [place] [address] Performed By: #### 5 7021-8 ####[facility] LABORATORYCLIA [id number] [place] [address] [place] RBC (Bld) [#/Vol] 3.24 10*6/uL Low 4.20-6.00 [facility] Comment on above: Order Comment: Speci men Type: BLOOD SPECIMENOrdering Facility: [facility] Address: [address] [place], [place] [address] Performed By: #### 5 7021-8 ####[facility] LABORATORYCLIA [id number] [address] [place] WBC (Bld) [#/Vol] 8.10 10*3/uL Normal 3.70-11.00 [facility] Comment on above: Order Comment: Speci men Type: BLOOD SPECIMENOrdering Facility: [facility] Address: [address] [place] [address] Performed By: #### 5 7021-8 ####[facility] LABORATORYCLIA [id number] [place] [address] [place] THERAPY NTon 08-15-2021 THERAPY NT Normal [facility] THERAPY NT Normal [facility] THERAPY NT Normal [facility] Basic metabolic 2000 panelon 08-14-2021 Anion gap [Moles/Vol] 10 mmol/L Normal 9-18 [facility] Comment on above: Order Comment: Speci men Type: BLOOD SPECIMENOrdering Facility: [facility] Address: [address] [place] [address] Performed By: #### 2 4321-2 ####[facility] LABORATORYCLIA [id number] [place] [address] [place] Calcium [Mass/Vol] 8.8 mg/dL Normal 8.5-10.2 [facility] Comment on above: Order Comment: Speci men Type: BLOOD SPECIMENOrdering Facility: [facility] Address: [address] [place] [address] Performed By: #### 2 4321-2 ####[facility] LABORATORYCLIA [id number] [place] [address] [place] Chloride [Moles/Vol] 92 mmol/L Low 97-105 [facility] Comment on above: Order Comment: Speci men Type: BLOOD SPECIMENOrdering Facility: [facility] Address: [address] [place] [address] Performed By: #### 2 4321-2 ####[facility] LABORATORYCLIA [id number] [place] [address] [place] CO2 [Moles/Vol] 29 mmol/L Normal 22-30 [facility] Comment on above: Order Comment: Speci men Type: BLOOD SPECIMENOrdering Facility: [facility] Address: [address] [place] [address] Performed By: #### 2 4321-2 ####[facility] LABORATORYCLIA [id number] [place] [address] [place] Creatinine [Mass/Vol] 0.49 mg/dL Low 0.73-1.22 [facility] Comment on above: Order Comment: Shira feldman Type: BLOOD SPECIMENOrdering Facility: [facility] Address: [address] [address] Performed By: #### 2 4321-2 ####[facility] LABORATORYCLIA [id number] [address] ESTIMATED GLOMERULAR FILTRATION RATE 111 mL/min/1.73m??? Normal >=60 [facility] Comment on above: Order Comment: Shira feldman Type: BLOOD SPECIMENOrdering Facility: [facility] Address: [address] [address] Result Comment: Luzmaria mated Glomerular Filtration Rate [...] actual GFR. Performed By: #### 2 4321-2 ####[facility] LABORATORYCLIA [id number] [address] STATES [facility] Glucose [Mass/Vol] 104 mg/dL High 74-99 [facility] Comment on above: Order Comment: Shira feldman Type: BLOOD SPECIMENOrdering Facility: [facility] Address: [address] [address] Result Comment: The [place] [employer] (ADA) provides guidance for cutoff [...] Standards of Medical Care in Diabetes 2016, [place] [employer]. Diabetes Care. 2016.39(Suppl 1). Performed By: #### 2 4321-2 ####[facility] LABORATORYCLIA [id number] [place] [address] [place] Potassium [Moles/Vol] 3.1 mmol/L Low 3.7-5.1 [facility] Comment on above: Order Comment: Speci men Type: BLOOD SPECIMENOrdering Facility: [facility] Address: [address] [place] [address] Performed By: #### 2 4321-2 ####[facility] LABORATORYCLIA [id number] [address] [place] [facility] Sodium [Moles/Vol] 131 mmol/L Low 136-144 [facility] Comment on above: Order Comment: Speci men Type: BLOOD SPECIMENOrdering Facility: [facility] Address: [address] [place] [address] Performed By: #### 2 4321-2 ####[facility] LABORATORYCLIA [id number] [address] [place] [facility] Urea nitrogen [Mass/Vol] 13 mg/dL Normal 9-24 [facility] Comment on above: Order Comment: Speci men Type: BLOOD SPECIMENOrdering Facility: [facility] Address: [address] [place] [address] Performed By: #### 2 4321-2 ####[facility] LABORATORYCLIA [id number] [address] [place] CBC W Auto Differential pane l (Bld)on 08-14-2021 Basophils (Bld) [#/Vol] 10*3/uL Normal <0.11 [facility] Comment on above: Order Comment: Speci men Type: BLOOD SPECIMENOrdering Facility: [facility] Address: [address] [place] [address] Performed By: #### 5 7021-8 ####[facility] LABORATORYCLIA [id number] [address] Basophils/100 WBC (Bld) 0.2 % Normal [facility] Comment on above: Order Comment: Speci men Type: BLOOD SPECIMENOrdering Facility: [facility] Address: [address] [place] [address] Performed By: #### 5 7021-8 ####[facility] LABORATORYCLIA [id number] [address] Differential cell count method Nom (Bld) Auto Normal [facility] Comment on above: Order Comment: Speci men Type: BLOOD SPECIMENOrdering Facility: [facility] Address: [address] [place] [address] Performed By: #### 5 7021-8 ####[facility] LABORATORYCLIA [id number] [address] [place] Eosinophils (Bld) [#/Vol] 0.23 10*3/uL Normal <0.46 [facility] Comment on above: Order Comment: Speci men Type: BLOOD SPECIMENOrdering Facility: [facility] Address: [address] [place] [address] Performed By: #### 5 7021-8 ####[facility] LABORATORYCLIA [id number] [address] Eosinophils/100 WBC (Bld) 2.7 % Normal [facility] Comment on above: Order Comment: Speci men Type: BLOOD SPECIMENOrdering Facility: [facility] Address: [address] [place] [address] Performed By: #### 5 7021-8 ####[facility] LABORATORYCLIA [id number] [address] [place] Erythrocyte distribution width (RBC) [Ratio] 16.6 % High 11.5-15.0 [facility] Comment on above: Order Comment: Speci men Type: BLOOD SPECIMENOrdering Facility: [facility] Address: [address] [place] [address] Performed By: #### 5 7021-8 ####[facility]ORATORYCLIA [id number] [address] Hematocrit (Bld) [Volume fraction] 28.6 % Low 39.0-51.0 [facility] Comment on above: Order Comment: Speci men Type: BLOOD SPECIMENOrdering Facility: [facility] Address: [address] [place] [address] Performed By: #### 5 7021-8 ####[facility] LABORATORYCLIA [id number] [address] [place] Hemoglobin (Bld) [Mass/Vol] 9.0 g/dL Low 13.0-17.0 [facility] Comment on above: Order Comment: Speci men Type: BLOOD SPECIMENOrdering Facility: [facility] Address: [address] [place] [address] Performed By: #### 5 7021-8 ####[facility] LABORATORYCLIA [id number] [address] IMMATURE GRAN % 0.2 % Normal [facility] Comment on above: Order Comment: Speci men Type: BLOOD SPECIMENOrdering Facility: [facility] Address: [address] [place] [address] Performed By: #### 5 7021-8 ####[facility] LABORATORYCLIA [id number] [address] IMMATURE GRAN ABS <0.03 Normal <0.10 [facility] Comment on above: Order Comment: Speci men Type: BLOOD SPECIMENOrdering Facility: [facility] Address: [address] [place] [address] Performed By: #### 5 7021-8 ####[facility] LABORATORYCLIA [id number] [address] [place] Lymphocytes (Bld) [#/Vol] 1.33 10*3/uL Normal 1.00-4.00 [facility] Comment on above: Order Comment: Speci men Type: BLOOD SPECIMENOrdering Facility: [facility] Address: [address] [place] [address] Performed By: #### 5 7021-8 ####[facility] LABORATORYCLIA [id number] [address] Lymphocytes/100 WBC (Bld) 15.6 % Normal [facility] Comment on above: Order Comment: Speci men Type: BLOOD SPECIMENOrdering Facility: [facility] Address: [address] [place] [address] Performed By: #### 5 7021-8 ####[facility] LABORATORYCLIA [id number] [address] MCH (RBC) [Entitic mass] 29.0 pg Normal 26.0-34.0 [facility] Comment on above: Order Comment: Speci men Type: BLOOD SPECIMENOrdering Facility: [facility] Address: [address] [place] [address] Performed By: #### 5 7021-8 ####[facility] LABORATORYCLIA [id number] [address] MCHC (RBC) [Mass/Vol] 31.5 g/dL Normal 30.5-36.0 [facility] Comment on above: Order Comment: Speci men Type: BLOOD SPECIMENOrdering Facility: [facility] Address: [address] [place] [address] Performed By: #### 5 7021-8 ####[facility] LABORATORYCLIA [id number] [address] MCV (RBC) [Entitic vol] 92.3 fL Normal 80.0-100.0 [facility] Comment on above: Order Comment: Speci men Type: BLOOD SPECIMENOrdering Facility: [facility] Address: [address] [place] [address] Performed By: #### 5 7021-8 ####[facility] LABORATORYCLIA [id number] [address] Monocytes (Bld) [#/Vol] 0.44 10*3/uL Normal <0.87 [facility] Comment on above: Order Comment: Speci men Type: BLOOD SPECIMENOrdering Facility: [facility] Address: [address] [place] [address] Performed By: #### 5 7021-8 ####[facility] LABORATORYCLIA [id number] [address] [place] Monocytes/100 WBC (Bld) 5.2 % Normal [facility] Comment on above: Order Comment: Speci men Type: BLOOD SPECIMENOrdering Facility: [facility] Address: [address] [place] [address] Performed By: #### 5 7021-8 ####[facility]ORATORYCLIA [id number] [place] [address] [place] Neutrophils (Bld) [#/Vol] 6.46 10*3/uL Normal 1.45-7.50 [facility] Comment on above: Order Comment: Speci men Type: BLOOD SPECIMENOrdering Facility: [facility] Address: [address] [place] [address] Performed By: #### 5 7021-8 ####[facility] LABORATORYCLIA [id number] [address] [place] Neutrophils/100 WBC (Bld) 76.1 % Normal [facility] Comment on above: Order Comment: Speci men Type: BLOOD SPECIMENOrdering Facility: [facility] Address: [address] [place] [address] Performed By: #### 5 7021-8 ####[facility] LABORATORYCLIA [id number] [place] [address] [place] Nucleated RBC (Bld) [#/Vol] 10*3/uL Normal <0.01 [facility] Comment on above: Order Comment: Speci men Type: BLOOD SPECIMENOrdering Facility: [facility] Address: [address] [place] [address] Performed By: #### 5 7021-8 ####[facility] LABORATORYCLIA [id number] [address] [place] Nucleated RBC/100 WBC (Bld) [Ratio] 0.0 /100 WBC Normal [facility] Comment on above: Order Comment: Speci men Type: BLOOD SPECIMENOrdering Facility: [facility] Address: [address] [place] [address] Performed By: #### 5 7021-8 ####[facility] LABORATORYCLIA [id number] [place] [address] [place] Platelet mean volume (Bld) [Entitic vol] 9.5 fL Normal 9.0-12.7 [facility] Comment on above: Order Comment: Speci men Type: BLOOD SPECIMENOrdering Facility: [facility] Address: [address] [place] [address] Performed By: #### 5 7021-8 ####[facility] LABORATORYCLIA [id number] [place] [address] [place] Platelets (Bld) [#/Vol] 247 10*3/uL Normal 150-400 [facility] Comment on above: Order Comment: Speci men Type: BLOOD SPECIMENOrdering Facility: [facility] Address: [address] [place] [address] Performed By: #### 5 7021-8 ####[facility] LABORATORYCLIA [id number] [place] [address] [place] RBC (Bld) [#/Vol] 3.10 10*6/uL Low 4.20-6.00 [facility] Comment on above: Order Comment: Speci men Type: BLOOD SPECIMENOrdering Facility: [facility] Address: [address] [place], [place] [address] Performed By: #### 5 7021-8 ####[facility] LABORATORYCLIA [id number] [place] [address] [place] WBC (Bld) [#/Vol] 8.50 10*3/uL Normal 3.70-11.00 [facility] Comment on above: Order Comment: Speci men Type: BLOOD SPECIMENOrdering Facility: [facility] Address: [address] [place] [address] Performed By: #### 5 7021-8 ####[facility] LABORATORYCLIA [id number] [address] [place] CONSULTon 08-14-2021 CONSULT Normal [facility] NURSING PROGon 08-14-2021 NURSING PROG Normal [facility] CBC W Auto Differential pane l (Bld)on 08-13-2021 Basophils (Bld) [#/Vol] 10*3/uL Normal <0.11 [facility] Comment on above: Order Comment: Speci men Type: BLOOD SPECIMENOrdering Facility: [facility] Address: [address] [place] [address] Performed By: #### 5 7021-8 ####[facility] LABORATORYCLIA [id number] [address] [place] Basophils/100 WBC (Bld) 0.2 % Normal [facility] Comment on above: Order Comment: Speci men Type: BLOOD SPECIMENOrdering Facility: [facility] Address: [address] [address] Performed By: #### 5 7021-8 ####[facility] LABORATORYCLIA [id number] [address] [place] Differential cell count method Nom (Bld) Auto Normal [facility] Comment on above: Order Comment: Speci men Type: BLOOD SPECIMENOrdering Facility: [facility] Address: [address] [address] Performed By: #### 5 7021-8 ####[facility] LABORATORYCLIA [id number] [address] [place] Eosinophils (Bld) [#/Vol] 0.31 10*3/uL Normal <0.46 [facility] Comment on above: Order Comment: Speci men Type: BLOOD SPECIMENOrdering Facility: [facility] Address: [address] [address] Performed By: #### 5 7021-8 ####[facility]ORATORYCLIA [id number] [address] Eosinophils/100 WBC (Bld) 3.7 % Normal [facility] Comment on above: Order Comment: Speci men Type: BLOOD SPECIMENOrdering Facility: [facility] Address: [address] [place] [address] Performed By: #### 5 7021-8 ####[facility] LABORATORYCLIA [id number] [address] Erythrocyte distribution width (RBC) [Ratio] 16.6 % High 11.5-15.0 [facility] Comment on above: Order Comment: Speci men Type: BLOOD SPECIMENOrdering Facility: [facility] Address: [address] [place] [address] Performed By: #### 5 7021-8 ####[facility] LABORATORYCLIA [id number] [address] Hematocrit (Bld) [Volume fraction] 27.5 % Low 39.0-51.0 [facility] Comment on above: Order Comment: Speci men Type: BLOOD SPECIMENOrdering Facility: [facility] Address: [address] [place] [address] Performed By: #### 5 7021-8 ####[facility] LABORATORYCLIA [id number] [address] Hemoglobin (Bld) [Mass/Vol] 8.4 g/dL Low 13.0-17.0 [facility] Comment on above: Order Comment: Speci men Type: BLOOD SPECIMENOrdering Facility: [facility] Address: [address] [place] [address] Performed By: #### 5 7021-8 ####[facility] LABORATORYCLIA [id number] [address] IMMATURE GRAN % 0.5 % Normal [facility] Comment on above: Order Comment: Speci men Type: BLOOD SPECIMENOrdering Facility: [facility] Address: [address] [place] [address] Performed By: #### 5 7021-8 ####[facility] LABORATORYCLIA [id number] [address] IMMATURE GRAN ABS 0.04 k/uL Normal <0.10 [facility] Comment on above: Order Comment: Speci men Type: BLOOD SPECIMENOrdering Facility: [facility] Address: [address] [place] [address] Performed By: #### 5 7021-8 ####[facility] LABORATORYCLIA [id number] [address] Lymphocytes (Bld) [#/Vol] 1.55 10*3/uL Normal 1.00-4.00 [facility] Comment on above: Order Comment: Speci men Type: BLOOD SPECIMENOrdering Facility: [facility] Address: [address] [place] [address] Performed By: #### 5 7021-8 ####[facility] LABORATORYCLIA [id number] [address] Lymphocytes/100 WBC (Bld) 18.7 % Normal [facility] Comment on above: Order Comment: Speci men Type: BLOOD SPECIMENOrdering Facility: [facility] Address: [address] [place] [address] Performed By: #### 5 7021-8 ####[facility] LABORATORYCLIA [id number] [address] MCH (RBC) [Entitic mass] 28.9 pg Normal 26.0-34.0 [facility] Comment on above: Order Comment: Speci men Type: BLOOD SPECIMENOrdering Facility: [facility] Address: [address] [place] [address] Performed By: #### 5 7021-8 ####[facility] LABORATORYCLIA [id number] [address] MCHC (RBC) [Mass/Vol] 30.5 g/dL Normal 30.5-36.0 [facility] Comment on above: Order Comment: Speci men Type: BLOOD SPECIMENOrdering Facility: [facility] Address: [address] [address] Performed By: #### 5 7021-8 ####[facility] LABORATORYCLIA [id number] [address] MCV (RBC) [Entitic vol] 94.5 fL Normal 80.0-100.0 [facility] Comment on above: Order Comment: Speci men Type: BLOOD SPECIMENOrdering Facility: [facility] Address: [address] [place] [address] Performed By: #### 5 7021-8 ####[facility] LABORATORYCLIA [id number] [address] [place] Monocytes (Bld) [#/Vol] 0.47 10*3/uL Normal <0.87 [facility] Comment on above: Order Comment: Speci men Type: BLOOD SPECIMENOrdering Facility: [facility] Address: [address] [place] [address] Performed By: #### 5 7021-8 ####[facility] LABORATORYCLIA [id number] [address] STATES [facility] Monocytes/100 WBC (Bld) 5.7 % Normal [facility] Comment on above: Order Comment: Speci men Type: BLOOD SPECIMENOrdering Facility: [facility] Address: [address] [place] [address] Performed By: #### 5 7021-8 ####[facility] LABORATORYCLIA [id number] [address] [place] Neutrophils (Bld) [#/Vol] 5.92 10*3/uL Normal 1.45-7.50 [facility] Comment on above: Order Comment: Speci men Type: BLOOD SPECIMENOrdering Facility: [facility] Address: [address] [place] [address] Performed By: #### 5 7021-8 ####[facility] LABORATORYCLIA [id number] [place] [address] [place] Neutrophils/100 WBC (Bld) 71.2 % Normal [facility] Comment on above: Order Comment: Speci men Type: BLOOD SPECIMENOrdering Facility: [facility] Address: [address] [address] Performed By: #### 5 7021-8 ####[facility] LABORATORYCLIA [id number] [address] [place] Nucleated RBC (Bld) [#/Vol] 10*3/uL Normal <0.01 [facility] Comment on above: Order Comment: Speci men Type: BLOOD SPECIMENOrdering Facility: [facility] Address: [address] [place] [address] Performed By: #### 5 7021-8 ####[facility] LABORATORYCLIA [id number] [address] Nucleated RBC/100 WBC (Bld) [Ratio] 0.0 /100 WBC Normal [facility] Comment on above: Order Comment: Speci men Type: BLOOD SPECIMENOrdering Facility: [facility] Address: [address] [place] [address] Performed By: #### 5 7021-8 ####[facility] LABORATORYCLIA [id number] [address] Platelet mean volume (Bld) [Entitic vol] 9.9 fL Normal 9.0-12.7 [facility] Comment on above: Order Comment: Speci men Type: BLOOD SPECIMENOrdering Facility: [facility] Address: [address] [address] Performed By: #### 5 7021-8 ####[facility] LABORATORYCLIA [id number] [address] [place] Platelets (Bld) [#/Vol] 203 10*3/uL Normal 150-400 [facility] Comment on above: Order Comment: Speci men Type: BLOOD SPECIMENOrdering Facility: [facility] Address: [address] [place], [place] [address] Performed By: #### 5 7021-8 ####[facility] LABORATORYCLIA [id number] [place] [address] [place] RBC (Bld) [#/Vol] 2.91 10*6/uL Low 4.20-6.00 [facility] Comment on above: Order Comment: Speci men Type: BLOOD SPECIMENOrdering Facility: [facility] Address: [address] [place] [address] Performed By: #### 5 7021-8 ####[facility] LABORATORYCLIA [id number] [address] STATES OF [facility] WBC (Bld) [#/Vol] 8.31 10*3/uL Normal 3.70-11.00 [facility] Comment on above: Order Comment: Speci men Type: BLOOD SPECIMENOrdering Facility: [facility] Address: [address] [place] [address] Performed By: #### 5 7021-8 ####[facility] LABORATORYCLIA [id number] [address] aPTT PPPon 08-13-2021 aPTT Coag (PPP) [Time] 69.7 s High 23.0-32.4 [facility] Comment on above: Order Comment: Speci men Type: BLOOD SPECIMENOrdering Facility: [facility] Address: [address] [place] [address] Performed By: #### 1 4979-9 ####[facility] LABORATORYCLIA [id number] [address] aPTT Coag (PPP) [Time] 70.6 s High 23.0-32.4 [facility] Comment on above: Order Comment: Speci men Type: BLOOD SPECIMENOrdering Facility: [facility] Address: [address] [place] [address] Performed By: #### 1 4979-9 ####[facility] LABORATORYCLIA [id number] [address] OF [facility] ALLIED HEALTHon 08-12-2021 ALLIED HEALTH Normal [facility] ALLIED HEALTH Normal [facility] Basic metabolic 2000 panelon 08-12-2021 Anion gap [Moles/Vol] 7 mmol/L Low 9-18 [facility] Comment on above: Order Comment: Speci men Type: BLOOD SPECIMENOrdering Facility: [facility] Address: [address] [place] [address] Performed By: #### 2 4321-2, , 2776-05 ####[facility] LABORATORYCLIA [id number] [place] [id number] [place] Calcium [Mass/Vol] 8.8 mg/dL Normal 8.5-10.2 [facility] Comment on above: Order Comment: Speci men Type: BLOOD SPECIMENOrdering Facility: [facility] Address: [address] [place] [address] Performed By: #### 2 4321-2, , 2776-05 ####[facility] LABORATORYCLIA [id number] [place] [address] [place] Chloride [Moles/Vol] 96 mmol/L Low 97-105 [facility] Comment on above: Order Comment: Speci men Type: BLOOD SPECIMENOrdering Facility: [facility] Address: [address] [place] [address] Performed By: #### 2 4321-2, , 2776-05 ####[facility] LABORATORYCLIA [id number] [place] [id number] [place] CO2 [Moles/Vol] 32 mmol/L High 22-30 [facility] Comment on above: Order Comment: Speci men Type: BLOOD SPECIMENOrdering Facility: [facility] Address: [address] [place] [address] Performed By: #### 2 4321-2, , 2776-05 ####[facility] LABORATORYCLIA [id number] [place] [address] [place] Creatinine [Mass/Vol] 0.52 mg/dL Low 0.73-1.22 [facility] Comment on above: Order Comment: Johncara felmdan Type: BLOOD SPECIMENOrdering Facility: [facility] Address: [address] [id number] Performed By: #### 2 4321-2, , 2776-05 ####[facility] LABORATORYCLIA [id number] [place] [address] [place] ESTIMATED GLOMERULAR FILTRATION RATE 109 mL/min/1.73m??? Normal >=60 [facility] Comment on above: Order Comment: Shira francia Type: BLOOD SPECIMENOrdering Facility: [facility] Address: [address] [phone] Result Comment: Luzmaria mated Glomerular Filtration Rate [...] Performed By: #### 2 4321-2, , 2776-05 ####[facility] LABORATORYCLIA [id number] [place] [address] [place] Glucose [Mass/Vol] 119 mg/dL High 74-99 [facility] Comment on above: Order Comment: Shira feldman Type: BLOOD SPECIMENOrdering Facility: [facility] Address: [address] [place] [phone] Result Comment: The [place] [employer] (ADA) provides guidance for cutoff [...] Standards of Medical Care in Diabetes 2016, [place] [employer]. Diabetes Care. 2016.39(Suppl 1). Performed By: #### 2 4321-2, 43204-7, 2777- ####[facility] LABORATORYCLIA [id number] [place] [address] [place] Potassium [Moles/Vol] 3.7 mmol/L Normal 3.7-5.1 [facility] Comment on above: Order Comment: Speci men Type: BLOOD SPECIMENOrdering Facility: [facility] Address: [address] [place] [address] Performed By: #### 2 4321-2, , 2776- ####[facility] LABORATORYCLIA [id number] [address] STATES OF [facility] Sodium [Moles/Vol] 135 mmol/L Low 136-144 [facility] Comment on above: Order Comment: Speci men Type: BLOOD SPECIMENOrdering Facility: [facility] Address: [address] [place] [address] Performed By: #### 2 4321-2, , 27711-04 ####[facility] LABORATORYCLIA [id number] [address] [place] Urea nitrogen [Mass/Vol] 20 mg/dL Normal 9-24 [facility] Comment on above: Order Comment: Speci men Type: BLOOD SPECIMENOrdering Facility: [facility] Address: [address] [place] [address] Performed By: #### 2 4321-2, , 2777 ####[facility] LABORATORYCLIA [id number] [place] [id number] [place] CASE MANAGEMon 08-12-2021 CASE MANAGEM Normal [facility] CBC W Auto Differential pane l (Bld)on 08-12-2021 Basophils (Bld) [#/Vol] 0.04 10*3/uL Normal <0.11 [facility] Comment on above: Order Comment: Speci men Type: BLOOD SPECIMENOrdering Facility: [facility] Address: [address] [address] Performed By: #### 5 7021-8 ####[facility]ORATORYCLIA [id number] [address] [place] Basophils/100 WBC (Bld) 0.5 % Normal [facility] Comment on above: Order Comment: Speci men Type: BLOOD SPECIMENOrdering Facility: [facility] Address: [address] [place] [address] Performed By: #### 5 7021-8 ####[facility] LABORATORYCLIA [id number] [address] [place] Differential cell count method Nom (Bld) Auto Normal [facility] Comment on above: Order Comment: Speci men Type: BLOOD SPECIMENOrdering Facility: [facility] Address: [address] [place] [address] Performed By: #### 5 7021-8 ####[facility] LABORATORYCLIA [id number] [address] [place] Eosinophils (Bld) [#/Vol] 0.19 10*3/uL Normal <0.46 [facility] Comment on above: Order Comment: Speci men Type: BLOOD SPECIMENOrdering Facility: [facility] Address: [address] [place] [address] Performed By: #### 5 7021-8 ####[facility] LABORATORYCLIA [id number] [address] [place] Eosinophils/100 WBC (Bld) 2.3 % Normal [facility] Comment on above: Order Comment: Speci men Type: BLOOD SPECIMENOrdering Facility: [facility] Address: [address] [place] [address] Performed By: #### 5 7021-8 ####[facility]ORATORYCLIA [id number] [address] [place] Erythrocyte distribution width (RBC) [Ratio] 17.1 % High 11.5-15.0 [facility] Comment on above: Order Comment: Speci men Type: BLOOD SPECIMENOrdering Facility: [facility] Address: [address] [place] [address] Performed By: #### 5 7021-8 ####[facility] LABORATORYCLIA [id number] [address] Hematocrit (Bld) [Volume fraction] 25.3 % Low 39.0-51.0 [facility] Comment on above: Order Comment: Speci men Type: BLOOD SPECIMENOrdering Facility: [facility] Address: [address] [place] [address] Performed By: #### 5 7021-8 ####[facility] LABORATORYCLIA [id number] [address] Hemoglobin (Bld) [Mass/Vol] 7.9 g/dL Low 13.0-17.0 [facility] Comment on above: Order Comment: Speci men Type: BLOOD SPECIMENOrdering Facility: [facility] Address: [address] [place] [address] Performed By: #### 5 7021-8 ####[facility] LABORATORYCLIA [id number] [address] IMMATURE GRAN % 0.5 % Normal [facility] Comment on above: Order Comment: Speci men Type: BLOOD SPECIMENOrdering Facility: [facility] Address: [address] [place] [address] Performed By: #### 5 7021-8 ####[facility] LABORATORYCLIA [id number] [address] IMMATURE GRAN ABS 0.04 k/uL Normal <0.10 [facility] Comment on above: Order Comment: Speci men Type: BLOOD SPECIMENOrdering Facility: [facility] Address: [address] [place] [address] Performed By: #### 5 7021-8 ####[facility] LABORATORYCLIA [id number] [address] [facility] Lymphocytes (Bld) [#/Vol] 1.69 10*3/uL Normal 1.00-4.00 [facility] Comment on above: Order Comment: Speci men Type: BLOOD SPECIMENOrdering Facility: [facility] Address: [address] [place] [address] Performed By: #### 5 7021-8 ####[facility] LABORATORYCLIA [id number] [address] Lymphocytes/100 WBC (Bld) 20.1 % Normal [facility] Comment on above: Order Comment: Speci men Type: BLOOD SPECIMENOrdering Facility: [facility] Address: [address] [place] [address] Performed By: #### 5 7021-8 ####[facility] LABORATORYCLIA [id number] [address] [place] MCH (RBC) [Entitic mass] 28.5 pg Normal 26.0-34.0 [facility] Comment on above: Order Comment: Speci men Type: BLOOD SPECIMENOrdering Facility: [facility] Address: [address] [place] [address] Performed By: #### 5 7021-8 ####[facility] LABORATORYCLIA [id number] [address] [place] [facility] MCHC (RBC) [Mass/Vol] 31.2 g/dL Normal 30.5-36.0 [facility] Comment on above: Order Comment: Speci men Type: BLOOD SPECIMENOrdering Facility: [facility] Address: [address] [place] [address] Performed By: #### 5 7021-8 ####[facility] LABORATORYCLIA [id number] [address] [place] MCV (RBC) [Entitic vol] 91.3 fL Normal 80.0-100.0 [facility] Comment on above: Order Comment: Speci men Type: BLOOD SPECIMENOrdering Facility: [facility] Address: [address] [place] [address] Performed By: #### 5 7021-8 ####[facility]ORATORYCLIA [id number] [place] [address] [place] Monocytes (Bld) [#/Vol] 0.53 10*3/uL Normal <0.87 [facility] Comment on above: Order Comment: Speci men Type: BLOOD SPECIMENOrdering Facility: [facility] Address: [address] [place] [address] Performed By: #### 5 7021-8 ####[facility]ORATORYCLIA [id number] [address] [place] Monocytes/100 WBC (Bld) 6.3 % Normal [facility] Comment on above: Order Comment: Speci men Type: BLOOD SPECIMENOrdering Facility: [facility] Address: [address] [place] [address] Performed By: #### 5 7021-8 ####[facility] LABORATORYCLIA [id number] [address] [place] Neutrophils (Bld) [#/Vol] 5.90 10*3/uL Normal 1.45-7.50 [facility] Comment on above: Order Comment: Speci men Type: BLOOD SPECIMENOrdering Facility: [facility] Address: [address] [place] [address] Performed By: #### 5 7021-8 ####[facility]ORATORYCLIA [id number] [address] [place] Neutrophils/100 WBC (Bld) 70.3 % Normal [facility] Comment on above: Order Comment: Speci men Type: BLOOD SPECIMENOrdering Facility: [facility] Address: [address] [place] [address] Performed By: #### 5 7021-8 ####[facility]ORATORYCLIA [id number] [place] [address] [place] Nucleated RBC (Bld) [#/Vol] 10*3/uL Normal <0.01 [facility] Comment on above: Order Comment: Speci men Type: BLOOD SPECIMENOrdering Facility: [facility] Address: [address] [place] [address] Performed By: #### 5 7021-8 ####[facility] LABORATORYCLIA [id number] [address] [place] Nucleated RBC/100 WBC (Bld) [Ratio] 0.0 /100 WBC Normal [facility] Comment on above: Order Comment: Speci men Type: BLOOD SPECIMENOrdering Facility: [facility] Address: [address] [place] [address] Performed By: #### 5 7021-8 ####[facility] LABORATORYCLIA [id number] [address] [place] Platelet mean volume (Bld) [Entitic vol] 9.8 fL Normal 9.0-12.7 [facility] Comment on above: Order Comment: Speci men Type: BLOOD SPECIMENOrdering Facility: [facility] Address: [address] [place] [address] Performed By: #### 5 7021-8 ####[facility] LABORATORYCLIA [id number] [address] [place] Platelets (Bld) [#/Vol] 164 10*3/uL Normal 150-400 [facility] Comment on above: Order Comment: Speci men Type: BLOOD SPECIMENOrdering Facility: [facility] Address: [address] [place] [address] Performed By: #### 5 7021-8 ####[facility] LABORATORYCLIA [id number] [address] [place] RBC (Bld) [#/Vol] 2.77 10*6/uL Low 4.20-6.00 [facility] Comment on above: Order Comment: Speci men Type: BLOOD SPECIMENOrdering Facility: [facility] Address: [address] [place] [address] Performed By: #### 5 7021-8 ####[facility] LABORATORYCLIA [id number] [address] [place] WBC (Bld) [#/Vol] 8.39 10*3/uL Normal 3.70-11.00 [facility] Comment on above: Order Comment: Speci men Type: BLOOD SPECIMENOrdering Facility: [facility] Address: [address] [place] [address] Performed By: #### 5 7021-8 ####[facility] LABORATORYCLIA [id number] [address] [place] CT BRAIN WO IVCONon 08-13-[address] BRAIN WO IVCON Normal [facility] CT BRAIN WO IVCON Normal [facility] Magnesium SerPl-mCncon 08-12 Magnesium [Mass/Vol] 2.0 mg/dL Normal 1.7-2.3 [facility] Comment on above: Order Comment: Speci men Type: BLOOD SPECIMENOrdering Facility: [facility] Address: [address] [place] [address] Performed By: #### 2 4321-2, 73607-2, 27771 ####[facility] LABORATORYCLIA [id number] [address] [place] Phosphate SerPl-mCncon 08-12 Phosphate [Mass/Vol] 2.9 mg/dL Normal 2.7-4.8 [facility] Comment on above: Order Comment: Speci men Type: BLOOD SPECIMENOrdering Facility: [facility] Address: [address] [place] [address] Performed By: #### 2 4321-2, 57034-4, 27771 ####[facility] LABORATORYCLIA [id number] [address] [place] THERAPY NTon 08-12-2021 THERAPY NT Normal [facility] THERAPY NT Normal [facility] aPTT PPPon 08-12-2021 aPTT Coag (PPP) [Time] 94.2 s High 23.0-32.4 [facility] Comment on above: Order Comment: Speci men Type: BLOOD SPECIMENOrdering Facility: [facility] Address: [address] [place] [address] Performed By: #### 1 4979-9 ####[facility] LABORATORYCLIA [id number] [address] aPTT Coag (PPP) [Time] 84.4 s High 23.0-32.4 [facility] Comment on above: Order Comment: Speci men Type: BLOOD SPECIMENOrdering Facility: [facility] Address: [address] [place] [address] Performed By: #### 1 4979-9 ####[facility] LABORATORYCLIA [id number] [address] aPTT Coag (PPP) [Time] 71.3 s High 23.0-32.4 [facility] Comment on above: Order Comment: Speci men Type: BLOOD SPECIMENOrdering Facility: [facility] Address: [address] [place] [address] Performed By: #### 1 4979-9 ####[facility] LABORATORYCLIA [id number] [address] [facility] ALLIED HEALTHon 08-11-2021 ALLIED HEALTH Normal [facility] CBC W Auto Differential pane l (Bld)on 08-11-2021 Basophils (Bld) [#/Vol] 10*3/uL Normal <0.11 [facility] Comment on above: Order Comment: Speci men Type: BLOOD SPECIMENOrdering Facility: [facility] Address: [address] [place] [address] Performed By: #### 5 7021-8 ####[facility] LABORATORYCLIA [id number] [address] Basophils/100 WBC (Bld) 0.2 % Normal [facility] Comment on above: Order Comment: Speci men Type: BLOOD SPECIMENOrdering Facility: [facility] Address: [address] [place] [address] Performed By: #### 5 7021-8 ####[facility] LABORATORYCLIA [id number] [address] Differential cell count method Nom (Bld) Auto Normal [facility] Comment on above: Order Comment: Speci men Type: BLOOD SPECIMENOrdering Facility: [facility] Address: [address] [place] [address] Performed By: #### 5 7021-8 ####[facility] LABORATORYCLIA [id number] [address] Eosinophils (Bld) [#/Vol] 0.16 10*3/uL Normal <0.46 [facility] Comment on above: Order Comment: Speci men Type: BLOOD SPECIMENOrdering Facility: [facility] Address: [address] [place] [address] Performed By: #### 5 7021-8 ####[facility] LABORATORYCLIA [id number] [address] Eosinophils/100 WBC (Bld) 1.8 % Normal [facility] Comment on above: Order Comment: Speci men Type: BLOOD SPECIMENOrdering Facility: [facility] Address: [address] [place] [address] Performed By: #### 5 7021-8 ####[facility] LABORATORYCLIA [id number] [address] Erythrocyte distribution width (RBC) [Ratio] 17.3 % High 11.5-15.0 [facility] Comment on above: Order Comment: Speci men Type: BLOOD SPECIMENOrdering Facility: [facility] Address: [address] [place] [address] Performed By: #### 5 7021-8 ####[facility] LABORATORYCLIA [id number] [address] Hematocrit (Bld) [Volume fraction] 26.6 % Low 39.0-51.0 [facility] Comment on above: Order Comment: Speci men Type: BLOOD SPECIMENOrdering Facility: [facility] Address: [address] [place] [address] Performed By: #### 5 7021-8 ####[facility] LABORATORYCLIA [id number] [address] [place] Hemoglobin (Bld) [Mass/Vol] 8.2 g/dL Low 13.0-17.0 [facility] Comment on above: Order Comment: Speci men Type: BLOOD SPECIMENOrdering Facility: [facility] Address: [address] [place] [address] Performed By: #### 5 7021-8 ####[facility] LABORATORYCLIA [id number] [address] [facility] IMMATURE GRAN % 0.6 % Normal [facility] Comment on above: Order Comment: Speci men Type: BLOOD SPECIMENOrdering Facility: [facility] Address: [address] [place] [address] Performed By: #### 5 7021-8 ####[facility] LABORATORYCLIA [id number] [address] IMMATURE GRAN ABS 0.05 k/uL Normal <0.10 [facility] Comment on above: Order Comment: Speci men Type: BLOOD SPECIMENOrdering Facility: [facility] Address: [address] [place] [address] Performed By: #### 5 7021-8 ####[facility] LABORATORYCLIA [id number] [address] [place] Lymphocytes (Bld) [#/Vol] 1.40 10*3/uL Normal 1.00-4.00 [facility] Comment on above: Order Comment: Speci men Type: BLOOD SPECIMENOrdering Facility: [facility] Address: [address] [place] [address] Performed By: #### 5 7021-8 ####[facility] LABORATORYCLIA [id number] [address] Lymphocytes/100 WBC (Bld) 15.8 % Normal [facility] Comment on above: Order Comment: Speci men Type: BLOOD SPECIMENOrdering Facility: [facility] Address: [address] [place] [address] Performed By: #### 5 7021-8 ####[facility] LABORATORYCLIA [id number] [address] MCH (RBC) [Entitic mass] 28.4 pg Normal 26.0-34.0 [facility] Comment on above: Order Comment: Speci men Type: BLOOD SPECIMENOrdering Facility: [facility] Address: [address] [place] [address] Performed By: #### 5 7021-8 ####[facility] LABORATORYCLIA [id number] [address] MCHC (RBC) [Mass/Vol] 30.8 g/dL Normal 30.5-36.0 [facility] Comment on above: Order Comment: Speci men Type: BLOOD SPECIMENOrdering Facility: [facility] Address: [address] [place] [address] Performed By: #### 5 7021-8 ####[facility] LABORATORYCLIA [id number] [address] MCV (RBC) [Entitic vol] 92.0 fL Normal 80.0-100.0 [facility] Comment on above: Order Comment: Speci men Type: BLOOD SPECIMENOrdering Facility: [facility] Address: [address] [place] [address] Performed By: #### 5 7021-8 ####[facility] LABORATORYCLIA [id number] [address] Monocytes (Bld) [#/Vol] 0.61 10*3/uL Normal <0.87 [facility] Comment on above: Order Comment: Speci men Type: BLOOD SPECIMENOrdering Facility: [facility] Address: [address] [place] [address] Performed By: #### 5 7021-8 ####[facility] LABORATORYCLIA [id number] [address] Monocytes/100 WBC (Bld) 6.9 % Normal [facility] Comment on above: Order Comment: Speci men Type: BLOOD SPECIMENOrdering Facility: [facility] Address: [address] [place] [address] Performed By: #### 5 7021-8 ####[facility] LABORATORYCLIA [id number] [address] [place] Neutrophils (Bld) [#/Vol] 6.62 10*3/uL Normal 1.45-7.50 [facility] Comment on above: Order Comment: Speci men Type: BLOOD SPECIMENOrdering Facility: [facility] Address: [address] [place] [address] Performed By: #### 5 7021-8 ####[facility]ATORYCLIA [id number] [address] [place] Neutrophils/100 WBC (Bld) 74.7 % Normal [facility] Comment on above: Order Comment: Speci men Type: BLOOD SPECIMENOrdering Facility: [facility] Address: [address] [place] [address] Performed By: #### 5 7021-8 ####[facility] LABORATORYCLIA [id number] [address] [place] Nucleated RBC (Bld) [#/Vol] 10*3/uL Normal <0.01 [facility] Comment on above: Order Comment: Speci men Type: BLOOD SPECIMENOrdering Facility: [facility] Address: [address] [place] [address] Performed By: #### 5 7021-8 ####[facility]ORATORYCLIA [id number] [address] [place] Nucleated RBC/100 WBC (Bld) [Ratio] 0.0 /100 WBC Normal [facility] Comment on above: Order Comment: Speci men Type: BLOOD SPECIMENOrdering Facility: [facility] Address: [address] [place] [address] Performed By: #### 5 7021-8 ####[facility]ORATORYCLIA [id number] [address] STATES [facility] Platelet mean volume (Bld) [Entitic vol] 9.8 fL Normal 9.0-12.7 [facility] Comment on above: Order Comment: Speci men Type: BLOOD SPECIMENOrdering Facility: [facility] Address: [address] [place] [address] Performed By: #### 5 7021-8 ####[facility] LABORATORYCLIA [id number] [address] [place] Platelets (Bld) [#/Vol] 157 10*3/uL Normal 150-400 [facility] Comment on above: Order Comment: Speci men Type: BLOOD SPECIMENOrdering Facility: [facility] Address: [address] [place] [address] Performed By: #### 5 7021-8 ####[facility] LABORATORYCLIA [id number] [address] RBC (Bld) [#/Vol] 2.89 10*6/uL Low 4.20-6.00 [facility] Comment on above: Order Comment: Speci men Type: BLOOD SPECIMENOrdering Facility: [facility] Address: [address] [place] [address] Performed By: #### 5 7021-8 ####[facility] LABORATORYCLIA [id number] [address] STATES [facility] WBC (Bld) [#/Vol] 8.86 10*3/uL Normal 3.70-11.00 [facility] Comment on above: Order Comment: Speci men Type: BLOOD SPECIMENOrdering Facility: [facility] Address: [address] [place] [address] Performed By: #### 5 7021-8 ####[facility] LABORATORYCLIA [id number] [address] CBC panel Auto (Bld)on 08-11 Erythrocyte distribution width (RBC) [Ratio] 17.2 % High 11.5-15.0 [facility] Comment on above: Order Comment: Speci men Type: BLOOD SPECIMENOrdering Facility: [facility] Address: [address] [place] [address] Performed By: #### 5 8410-2 ####[facility] LABORATORYCLIA [id number] [address] [facility] Hematocrit (Bld) [Volume fraction] 27.0 % Low 39.0-51.0 [facility] Comment on above: Order Comment: Speci men Type: BLOOD SPECIMENOrdering Facility: [facility] Address: [address] [place] [address] Performed By: #### 5 8410-2 ####[facility] LABORATORYCLIA [id number] [address] [facility] Hemoglobin (Bld) [Mass/Vol] 8.3 g/dL Low 13.0-17.0 [facility] Comment on above: Order Comment: Speci men Type: BLOOD SPECIMENOrdering Facility: [facility] Address: [address] [place] [address] Performed By: #### 5 8410-2 ####[facility] LABORATORYCLIA [id number] [address] [facility] MCH (RBC) [Entitic mass] 28.7 pg Normal 26.0-34.0 [facility] Comment on above: Order Comment: Speci men Type: BLOOD SPECIMENOrdering Facility: [facility] Address: [address] [place] [address] Performed By: #### 5 8410-2 ####[facility] LABORATORYCLIA [id number] [address] [place] MCHC (RBC) [Mass/Vol] 30.7 g/dL Normal 30.5-36.0 [facility] Comment on above: Order Comment: Speci men Type: BLOOD SPECIMENOrdering Facility: [facility] Address: [address] [place] [address] Performed By: #### 5 8410-2 ####[facility] LABORATORYCLIA [id number] [address] STATES [facility] MCV (RBC) [Entitic vol] 93.4 fL Normal 80.0-100.0 [facility] Comment on above: Order Comment: Speci men Type: BLOOD SPECIMENOrdering Facility: [facility] Address: [address] [place] [address] Performed By: #### 5 8410-2 ####[facility] LABORATORYCLIA [id number] [address] Nucleated RBC (Bld) [#/Vol] 10*3/uL Normal <0.01 [facility] Comment on above: Order Comment: Speci men Type: BLOOD SPECIMENOrdering Facility: [facility] Address: [address] [place] [address] Performed By: #### 5 8410-2 ####[facility] LABORATORYCLIA [id number] [address] Platelet mean volume (Bld) [Entitic vol] 9.8 fL Normal 9.0-12.7 [facility] Comment on above: Order Comment: Speci men Type: BLOOD SPECIMENOrdering Facility: [facility] Address: [address] [place] [address] Performed By: #### 5 8410-2 ####[facility] LABORATORYCLIA [id number] [address] Platelets (Bld) [#/Vol] 169 10*3/uL Normal 150-400 [facility] Comment on above: Order Comment: Speci men Type: BLOOD SPECIMENOrdering Facility: [facility] Address: [address] [place] [address] Performed By: #### 5 8410-2 ####[facility] LABORATORYCLIA [id number] [address] [place] RBC (Bld) [#/Vol] 2.89 10*6/uL Low 4.20-6.00 [facility] Comment on above: Order Comment: Speci men Type: BLOOD SPECIMENOrdering Facility: [facility] Address: [address] [place] [address] Performed By: #### 5 8410-2 ####[facility] LABORATORYCLIA [id number] [address] WBC (Bld) [#/Vol] 9.03 10*3/uL Normal 3.70-11.00 [facility] Comment on above: Order Comment: Shira feldman Type: BLOOD SPECIMENOrdering Facility: [facility] Address: [address] [place] [address] Performed By: #### 5 8410-2 ####[facility] LABORATORYCLIA [id number] [address] BRAIN WO IVCONon 08-12-19 CT BRAIN WO IVCON Normal [facility] PT panel Coag (PPP)on 2021 INR Coag (PPP) [Relative time] 1.0 {INR} Normal 0.9-1.3 [facility] Comment on above: Order Comment: Shira feldman Type: BLOOD SPECIMENOrdering Facility: [facility] Address: [address] [place] [address] Result Comment: Yris min K Antagonist (VKA) Therapeutic Range: INR 2 to 3 (Target INR of 2.5)Note: For patients treated with VKA drugs, such as warfarin, the [employer] 2012 Guideline recommends [...] al. Chest 2012, 141:7S-47SNishmariangel RA, et al. [facility] 2017, 70: 252-289 Performed By: #### 1 4979-9, 32168-8 ####[facility] LABORATORYCLIA [id number] [place], [place] [id number] [place] [address] [facility] PT Coag (PPP) [Time] 11.4 s Normal 9.7-13.0 [facility] Comment on above: Order Comment: Speci men Type: BLOOD SPECIMENOrdering Facility: [facility] Address: [address] [address] Performed By: #### 1 4979-9, 47162-4 ####[facility] LABORATORYCLIA [id number] [address] [place] THERAPY NTon 08-11-2021 THERAPY NT Normal [facility] US DVT LOWER BILon 2 US DVT LOWER RAINER Normal [facility] US DVT UPPER BILon 2 US DVT UPPER RAINER Normal [facility] aPTT PPPon 08-11-2021 aPTT Coag (PPP) [Time] 26.9 s Normal 23.0-32.4 [facility] Comment on above: Order Comment: Speci men Type: BLOOD SPECIMENOrdering Facility: [facility] Address: [address] [place] [address] Performed By: #### 1 4979-9, 10055-3 ####[facility] LABORATORYCLIA [id number] [address] [place] Basic metabolic 2000 panelon 08-10-2021 Anion gap [Moles/Vol] 11 mmol/L Normal 9-18 [facility] Comment on above: Order Comment: Speci men Type: BLOOD SPECIMENOrdering Facility: [facility] Address: [address] [address] Performed By: #### 2 4321-2 ####[facility] LABORATORYCLIA [id number] [address] STATES [facility] Calcium [Mass/Vol] 8.7 mg/dL Normal 8.5-10.2 [facility] Comment on above: Order Comment: Speci men Type: BLOOD SPECIMENOrdering Facility: [facility] Address: [address] [address] Performed By: #### 2 4321-2 ####[facility] LABORATORYCLIA [id number] [address] [place] Chloride [Moles/Vol] 98 mmol/L Normal 97-105 [facility] Comment on above: Order Comment: Speci men Type: BLOOD SPECIMENOrdering Facility: [facility] Address: [address] [place] [address] Performed By: #### 2 4321-2 ####[facility] LABORATORYCLIA [id number] [address] [place] CO2 [Moles/Vol] 28 mmol/L Normal 22-30 [facility] Comment on above: Order Comment: Speci men Type: BLOOD SPECIMENOrdering Facility: [facility] Address: [address] [place] [address] Performed By: #### 2 4321-2 ####[facility] LABORATORYCLIA [id number] [address] STATES [facility] Creatinine [Mass/Vol] 0.59 mg/dL Low 0.73-1.22 [facility] Comment on above: Order Comment: Speci men Type: BLOOD SPECIMENOrdering Facility: [facility] Address: [address] [place] [address] Performed By: #### 2 4321-2 ####[facility] LABORATORYCLIA [id number] [address] ESTIMATED GLOMERULAR FILTRATION RATE 105 mL/min/1.73m??? Normal >=60 [facility] Comment on above: Order Comment: Speci men Type: BLOOD SPECIMENOrdering Facility: [facility] Address: [address] [place] [address] Result Comment: Luzmaria mated Glomerular Filtration Rate [...] actual GFR. Performed By: #### 2 4321-2 ####[facility] LABORATORYCLIA [id number] [place] [address] [place] Glucose [Mass/Vol] 118 mg/dL High 74-99 [facility] Comment on above: Order Comment: Shira feldman Type: BLOOD SPECIMENOrdering Facility: [facility] Address: [address] [place] [address] Result Comment: The [place] [employer] (ADA) provides guidance for cutoff [...] Standards of Medical Care in Diabetes 2016, [place] [employer]. Diabetes Care. 2016.39(Suppl 1). Performed By: #### 2 4321-2 ####[facility] LABORATORYCLIA [id number] [place] [address] [place] Potassium [Moles/Vol] 3.7 mmol/L Normal 3.7-5.1 [facility] Comment on above: Order Comment: Shira feldman Type: BLOOD SPECIMENOrdering Facility: [facility] Address: [address] [address] Performed By: #### 2 4321-2 ####[facility] LABORATORYCLIA [id number] [place] [address] [place] Sodium [Moles/Vol] 137 mmol/L Normal 136-144 [facility] Comment on above: Order Comment: Shira feldman Type: BLOOD SPECIMENOrdering Facility: [facility] Address: [address] [address] Performed By: #### 2 4321-2 ####[facility] LABORATORYCLIA [id number] [place] [address] [place] Urea nitrogen [Mass/Vol] 23 mg/dL Normal 9-24 [facility] Comment on above: Order Comment: Speci men Type: BLOOD SPECIMENOrdering Facility: [facility] Address: [address] [place] [address] Performed By: #### 2 4321-2 ####[facility] LABORATORYCLIA [id number] [place] [address] [place] Anion gap [Moles/Vol] 17 mmol/L Normal 9-18 [facility] Comment on above: Order Comment: Speci men Type: BLOOD SPECIMENOrdering Facility: [facility] Address: [address] [place] [address] Performed By: #### 1 9123-9, 2777-1, 64550-9 ####[facility] LABORATORYCLIA [id number] [place] [address] [place] Calcium [Mass/Vol] 7.7 mg/dL Low 8.5-10.2 [facility] Comment on above: Order Comment: Speci men Type: BLOOD SPECIMENOrdering Facility: [facility] Address: [address] [place] [address] Performed By: #### 1 9123-9, 2777-1, 22425-3 ####[facility] LABORATORYCLIA [id number] [place] [address] [place] Chloride [Moles/Vol] 86 mmol/L Low 97-105 [facility] Comment on above: Order Comment: Speci men Type: BLOOD SPECIMENOrdering Facility: [facility] Address: [address] [place] [address] Performed By: #### 1 9123-9, 2777-1, 54000-9 ####[facility] LABORATORYCLIA [id number] [place] [address] [place] CO2 [Moles/Vol] 24 mmol/L Normal 22-30 [facility] Comment on above: Order Comment: Speci men Type: BLOOD SPECIMENOrdering Facility: [facility] Address: [address] [place] [address] Performed By: #### 1 9123-9, 2777-, 45358-6 ####[facility]ITAL[facility]IA [id number] [place] [address] [place] Creatinine [Mass/Vol] 0.53 mg/dL Low 0.73-1.22 [facility] Comment on above: Order Comment: Speci men Type: BLOOD SPECIMENOrdering Facility: [facility] Address: [address] [place] [address] Performed By: #### 1 9123-9, 27711-04, 22191-6 ####[facility] [id number] [address] [place] ESTIMATED GLOMERULAR FILTRATION RATE 108 mL/min/1.73m??? Normal >=60 [facility] Comment on above: Order Comment: Speci men Type: BLOOD SPECIMENOrdering Facility: [facility] Address: [address] [place] [address] Result Comment: Luzmaria mated Glomerular Filtration Rate [...] GFR. Performed By: #### 1 9123-9, 2777-, 28387-3 ####[facility] LABORATORYIA [id number] [place] [address] [place] Glucose [Mass/Vol] 455 mg/dL High 74-99 [facility] Comment on above: Order Comment: Shira feldman Type: BLOOD SPECIMENOrdering Facility: [facility] Address: [address] [place] [address] Result Comment: The [place] [employer] (ADA) provides guidance for cutoff [...] Standards of Medical Care in Diabetes 2016, [place] [employer]. Diabetes Care. 2016.39(Suppl 1). Performed By: #### 1 9123-9, 2777-, 09133-8 ####[facility] LABORATORYCLIA [id number] [place] [address] [place] Potassium [Moles/Vol] 3.4 mmol/L Low 3.7-5.1 [facility] Comment on above: Order Comment: Speci men Type: BLOOD SPECIMENOrdering Facility: [facility] Address: [address] [place] [address] Performed By: #### 1 9123-9, 27711-04, 40895-7 ####[facility] LABORATORYCLIA [id number] [place] [address] [place] Sodium [Moles/Vol] 127 mmol/L Low 136-144 [facility] Comment on above: Order Comment: Speci men Type: BLOOD SPECIMENOrdering Facility: [facility] Address: [address] [address] Performed By: #### 1 9123-9, 27711-04, 24122-4 ####[facility] LABORATORYCLIA [id number] [place] [address] [place] Urea nitrogen [Mass/Vol] 21 mg/dL Normal 9-24 [facility] Comment on above: Order Comment: Speci men Type: BLOOD SPECIMENOrdering Facility: [facility] Address: [address] [address] Performed By: #### 1 9123-9, 2777, 74105-4 ####[facility] LABORATORYCLIA [id number] [address] [place] CASE MANAGEMon 08-10-2021 CASE MANAGEM Normal [facility] CBC W Auto Differential pane l (Bld)on 08-10-2021 Basophils (Bld) [#/Vol] 0.04 10*3/uL Normal <0.11 [facility] Comment on above: Order Comment: Speci men Type: BLOOD SPECIMENOrdering Facility: [facility] Address: [address] [place] [address] Performed By: #### 5 7021-8 ####[facility] LABORATORYCLIA [id number] [address] STATES [facility] Basophils/100 WBC (Bld) 0.4 % Normal [facility] Comment on above: Order Comment: Speci men Type: BLOOD SPECIMENOrdering Facility: [facility] Address: [address] [place] [address] Performed By: #### 5 7021-8 ####[facility] LABORATORYCLIA [id number] [address] STATES OF [facility] Differential cell count method Nom (Bld) Auto Normal [facility] Comment on above: Order Comment: Speci men Type: BLOOD SPECIMENOrdering Facility: [facility] Address: [address] [place] [address] Performed By: #### 5 7021-8 ####[facility] LABORATORYCLIA [id number] [place] [address] [place] Eosinophils (Bld) [#/Vol] 0.11 10*3/uL Normal <0.46 [facility] Comment on above: Order Comment: Speci men Type: BLOOD SPECIMENOrdering Facility: [facility] Address: [address] [place] [address] Performed By: #### 5 7021-8 ####[facility]ORATORYCLIA [id number] [address] [place] Eosinophils/100 WBC (Bld) 1.1 % Normal [facility] Comment on above: Order Comment: Speci men Type: BLOOD SPECIMENOrdering Facility: [facility] Address: [address] [place] [address] Performed By: #### 5 7021-8 ####[facility] LABORATORYCLIA [id number] [address] Erythrocyte distribution width (RBC) [Ratio] 17.2 % High 11.5-15.0 [facility] Comment on above: Order Comment: Speci men Type: BLOOD SPECIMENOrdering Facility: [facility] Address: [address] [place] [address] Performed By: #### 5 7021-8 ####[facility] LABORATORYCLIA [id number] [address] Hematocrit (Bld) [Volume fraction] 25.5 % Low 39.0-51.0 [facility] Comment on above: Order Comment: Speci men Type: BLOOD SPECIMENOrdering Facility: [facility] Address: [address] [place] [address] Performed By: #### 5 7021-8 ####[facility] LABORATORYCLIA [id number] [address] Hemoglobin (Bld) [Mass/Vol] 7.9 g/dL Low 13.0-17.0 [facility] Comment on above: Order Comment: Speci men Type: BLOOD SPECIMENOrdering Facility: [facility] Address: [address] [place] [address] Performed By: #### 5 7021-8 ####[facility] LABORATORYCLIA [id number] [address] IMMATURE GRAN % 0.4 % Normal [facility] Comment on above: Order Comment: Speci men Type: BLOOD SPECIMENOrdering Facility: [facility] Address: [address] [place] [address] Performed By: #### 5 7021-8 ####[facility] LABORATORYCLIA [id number] [address] IMMATURE GRAN ABS 0.04 k/uL Normal <0.10 [facility] Comment on above: Order Comment: Speci men Type: BLOOD SPECIMENOrdering Facility: [facility] Address: [address] [place] [address] Performed By: #### 5 7021-8 ####[facility] LABORATORYCLIA [id number] [address] OF [facility] Lymphocytes (Bld) [#/Vol] 1.66 10*3/uL Normal 1.00-4.00 [facility] Comment on above: Order Comment: Speci men Type: BLOOD SPECIMENOrdering Facility: [facility] Address: [address] [place] [address] Performed By: #### 5 7021-8 ####[facility] LABORATORYCLIA [id number] [address] Lymphocytes/100 WBC (Bld) 16.2 % Normal [facility] Comment on above: Order Comment: Speci men Type: BLOOD SPECIMENOrdering Facility: [facility] Address: [address] [place] [address] Performed By: #### 5 7021-8 ####[facility] LABORATORYCLIA [id number] [address] STATES [place] [facility] MCH (RBC) [Entitic mass] 28.5 pg Normal 26.0-34.0 [facility] Comment on above: Order Comment: Speci men Type: BLOOD SPECIMENOrdering Facility: [facility] Address: [address] [place] [address] Performed By: #### 5 7021-8 ####[facility] LABORATORYCLIA [id number] [address] STATES [facility] MCHC (RBC) [Mass/Vol] 31.0 g/dL Normal 30.5-36.0 [facility] Comment on above: Order Comment: Speci men Type: BLOOD SPECIMENOrdering Facility: [facility] Address: [address] [place] [address] Performed By: #### 5 7021-8 ####[facility] LABORATORYCLIA [id number] [place] [address] [place] MCV (RBC) [Entitic vol] 92.1 fL Normal 80.0-100.0 [facility] Comment on above: Order Comment: Speci men Type: BLOOD SPECIMENOrdering Facility: [facility] Address: [address] [place] [address] Performed By: #### 5 7021-8 ####[facility] LABORATORYCLIA [id number] [address] [place] Monocytes (Bld) [#/Vol] 0.51 10*3/uL Normal <0.87 [facility] Comment on above: Order Comment: Speci men Type: BLOOD SPECIMENOrdering Facility: [facility] Address: [address] [place] [address] Performed By: #### 5 7021-8 ####[facility] LABORATORYCLIA [id number] [address] STATES [facility] Monocytes/100 WBC (Bld) 5.0 % Normal [facility] Comment on above: Order Comment: Speci men Type: BLOOD SPECIMENOrdering Facility: [facility] Address: [address] [place] [address] Performed By: #### 5 7021-8 ####[facility] LABORATORYCLIA [id number] [place] [address] [place] Neutrophils (Bld) [#/Vol] 7.91 10*3/uL High 1.45-7.50 [facility] Comment on above: Order Comment: Speci men Type: BLOOD SPECIMENOrdering Facility: [facility] Address: [address] [place] [address] Performed By: #### 5 7021-8 ####[facility] LABORATORYCLIA [id number] [address] [place] Neutrophils/100 WBC (Bld) 76.9 % Normal [facility] Comment on above: Order Comment: Speci men Type: BLOOD SPECIMENOrdering Facility: [facility] Address: [address] Performed By: #### 5 7021-8 ####[facility] LABORATORYCLIA [id number] [address] Nucleated RBC (Bld) [#/Vol] 10*3/uL Normal <0.01 [facility] Comment on above: Order Comment: Speci men Type: BLOOD SPECIMENOrdering Facility: [facility] Address: [address] [place] [address] Performed By: #### 5 7021-8 ####[facility] LABORATORYCLIA [id number] [address] Nucleated RBC/100 WBC (Bld) [Ratio] 0.0 /100 WBC Normal [facility] Comment on above: Order Comment: Speci men Type: BLOOD SPECIMENOrdering Facility: [facility] Address: [address] [place] [address] Performed By: #### 5 7021-8 ####[facility] LABORATORYCLIA [id number] [address] [place] Platelet mean volume (Bld) [Entitic vol] 10.3 fL Normal 9.0-12.7 [facility] Comment on above: Order Comment: Speci men Type: BLOOD SPECIMENOrdering Facility: [facility] Address: [address] [place] [address] Performed By: #### 5 7021-8 ####[facility] LABORATORYCLIA [id number] [address] Platelets (Bld) [#/Vol] 152 10*3/uL Normal 150-400 [facility] Comment on above: Order Comment: Speci men Type: BLOOD SPECIMENOrdering Facility: [facility] Address: [address] [place] [address] Performed By: #### 5 7021-8 ####[facility] LABORATORYCLIA [id number] [address] [place] RBC (Bld) [#/Vol] 2.77 10*6/uL Low 4.20-6.00 [facility] Comment on above: Order Comment: Speci men Type: BLOOD SPECIMENOrdering Facility: [facility] Address: [address] [place] [address] Performed By: #### 5 7021-8 ####[facility] LABORATORYCLIA [id number] [place] [address] [place] WBC (Bld) [#/Vol] 10.27 10*3/uL Normal 3.70-11.00 [facility] Comment on above: Order Comment: Speci men Type: BLOOD SPECIMENOrdering Facility: [facility] Address: [address] [place] [address] Performed By: #### 5 7021-8 ####[facility] LABORATORYCLIA [id number] [address] [place] Magnesium SerPl-ncon 08-10 Magnesium [Mass/Vol] 1.8 mg/dL Normal 1.7-2.3 [facility] Comment on above: Order Comment: Speci men Type: BLOOD SPECIMENOrdering Facility: [facility] Address: [address] [place] [address] Performed By: #### 1 9123-9, 2777-1, 87248-6 ####[facility] LABORATORYCLIA [id number] [address] [place] NURSING PROGon 08-10-2021 NURSING PROG Normal [facility] NURSING PROG Normal [facility] NUTRITIONon 08-10-2021 NUTRITION Normal [facility] Phosphate SerPl-mCncon 08-10 Phosphate [Mass/Vol] 3.7 mg/dL Normal 2.7-4.8 [facility] Comment on above: Order Comment: Speci men Type: BLOOD SPECIMENOrdering Facility: [facility] Address: [address] [place] [address] Performed By: #### 1 9123-9, 2777-1, 25565-5 ####[facility] LABORATORYCLIA [id number] [place] [address] [place] ALLIED HEALTHon 08-09-2021 ALLIED HEALTH Normal [facility] ANES POSTPROC EVALon 022 ANES POSTPROC EVAL Normal [facility] ANES PRE-OPon 08-09-2021 ANES PRE-OP Normal [facility] BRIEF OP NOTon 08-09-2021 BRIEF OP NOT Normal [facility] Basic metabolic 2000 panelon 08-09-2021 Anion gap [Moles/Vol] 8 mmol/L Low 9-18 [facility] Comment on above: Order Comment: Speci men Type: BLOOD SPECIMENOrdering Facility: [facility] Address: [address] [place] [address] Performed By: #### 2 4321-2, , 2776-05 ####[facility] LABORATORYCLIA [id number] [place] [address] [place] Calcium [Mass/Vol] 9.2 mg/dL Normal 8.5-10.2 [facility] Comment on above: Order Comment: Speci men Type: BLOOD SPECIMENOrdering Facility: [facility] Address: [address] [place] [address] Performed By: #### 2 4321-2, , 2776-05 ####[facility] LABORATORYCLIA [id number] [place] [address] [place] Chloride [Moles/Vol] 97 mmol/L Normal 97-105 [facility] Comment on above: Order Comment: Speci men Type: BLOOD SPECIMENOrdering Facility: [facility] Address: [address] [place] [address] Performed By: #### 2 4321-2, , 2776-05 ####[facility] LABORATORYCLIA [id number] [place] [address] [place] CO2 [Moles/Vol] 30 mmol/L Normal 22-30 [facility] Comment on above: Order Comment: Speci men Type: BLOOD SPECIMENOrdering Facility: [facility] Address: [address] [address] Performed By: #### 2 4321-2, , 2776-05 ####[facility]ITALCLIA [id number] [place] [id number] [place] Creatinine [Mass/Vol] 0.51 mg/dL Low 0.73-1.22 [facility] Comment on above: Order Comment: Speci men Type: BLOOD SPECIMENOrdering Facility: [facility] Address: [address] [place] [address] Performed By: #### 2 4321-2, , 2776-05 ####[facility] [id number] [place] [address] [place] ESTIMATED GLOMERULAR FILTRATION RATE 110 mL/min/1.73m??? Normal >=60 [facility] Comment on above: Order Comment: Speci men Type: BLOOD SPECIMENOrdering Facility: [facility] Address: [address] [place] [address] Result Comment: Luzmaria mated Glomerular Filtration Rate [...] Performed By: #### 2 4321-2, , 2776-05 ####[facility] LABORATORYIA [id number] [place] [address] [place] Glucose [Mass/Vol] 106 mg/dL High 74-99 [facility] Comment on above: Order Comment: Speci men Type: BLOOD SPECIMENOrdering Facility: [facility] Address: [address] [address] Result Comment: The [place] [employer] (ADA) provides guidance for cutoff [...] Standards of Medical Care in Diabetes 2016, [place] [employer]. Diabetes Care. 2016.39(Suppl 1). Performed By: #### 2 4321-2, , 2776-05 ####[facility] LABORATORYCLIA [id number] [place] [address] [place] Potassium [Moles/Vol] 4.1 mmol/L Normal 3.7-5.1 [facility] Comment on above: Order Comment: Shira feldman Type: BLOOD SPECIMENOrdering Facility: [facility] Address: [address] [place] [address] Performed By: #### 2 432-2, , 2776-05 ####[facility] LABORATORYCLIA [id number] [place] [address] [place] Sodium [Moles/Vol] 135 mmol/L Low 136-144 [facility] Comment on above: Order Comment: Shira feldman Type: BLOOD SPECIMENOrdering Facility: [facility] Address: [address] [place] [address] Performed By: #### 2 4321-2, , 2776-05 ####[facility] LABORATORYCLIA [id number] [place] [address] [place] Urea nitrogen [Mass/Vol] 26 mg/dL High 9-24 [facility] Comment on above: Order Comment: Shira feldman Type: BLOOD SPECIMENOrdering Facility: [facility] Address: [address] [place] [address] Performed By: #### 2 4321-2, , 2776-05 ####[facility] LABORATORYCLIA [id number] [place] [address] [place] CBC W Auto Differential pane l (Bld)on 08-09-2021 Basophils (Bld) [#/Vol] 0.06 10*3/uL Normal <0.11 [facility] Comment on above: Order Comment: Speci men Type: BLOOD SPECIMENOrdering Facility: [facility] Address: [address] [place] [address] Performed By: #### 5 7021-8 ####[facility]ORATORYCLIA [id number] [address] Basophils/100 WBC (Bld) 0.5 % Normal [facility] Comment on above: Order Comment: Speci men Type: BLOOD SPECIMENOrdering Facility: [facility] Address: [address] [place] [address] Performed By: #### 5 7021-8 ####[facility] LABORATORYCLIA [id number] [address] Differential cell count method Nom (Bld) Auto Normal [facility] Comment on above: Order Comment: Speci men Type: BLOOD SPECIMENOrdering Facility: [facility] Address: [address] [place] [address] Performed By: #### 5 7021-8 ####[facility] LABORATORYCLIA [id number] [address] STATES [place] [facility] Eosinophils (Bld) [#/Vol] 0.42 10*3/uL Normal <0.46 [facility] Comment on above: Order Comment: Speci men Type: BLOOD SPECIMENOrdering Facility: [facility] Address: [address] [address] Performed By: #### 5 7021-8 ####[facility] LABORATORYCLIA [id number] [address] Eosinophils/100 WBC (Bld) 3.8 % Normal [facility] Comment on above: Order Comment: Speci men Type: BLOOD SPECIMENOrdering Facility: [facility] Address: [facility] [address] Performed By: #### 5 7021-8 ####[facility] LABORATORYCLIA [id number] [address] Erythrocyte distribution width (RBC) [Ratio] 17.6 % High 11.5-15.0 [facility] Comment on above: Order Comment: Speci men Type: BLOOD SPECIMENOrdering Facility: [facility] Address: [address] [place] [address] Performed By: #### 5 7021-8 ####[facility] LABORATORYCLIA [id number] [address] Hematocrit (Bld) [Volume fraction] 29.3 % Low 39.0-51.0 [facility] Comment on above: Order Comment: Speci men Type: BLOOD SPECIMENOrdering Facility: [facility] Address: [address] [place] [address] Performed By: #### 5 7021-8 ####[facility]ITALCLIA [id number] [address] Hemoglobin (Bld) [Mass/Vol] 9.0 g/dL Low 13.0-17.0 [facility] Comment on above: Order Comment: Speci men Type: BLOOD SPECIMENOrdering Facility: [facility] Address: [address] [place] [address] Performed By: #### 5 7021-8 ####[facility] LABORATORYCLIA [id number] [address] IMMATURE GRAN % 0.5 % Normal [facility] Comment on above: Order Comment: Speci men Type: BLOOD SPECIMENOrdering Facility: [facility] Address: [address] [place] [address] Performed By: #### 5 7021-8 ####[facility] LABORATORYCLIA [id number] [address] IMMATURE GRAN ABS 0.05 k/uL Normal <0.10 [facility] Comment on above: Order Comment: Speci men Type: BLOOD SPECIMENOrdering Facility: [facility] Address: [address] [place] [address] Performed By: #### 5 7021-8 ####[facility] LABORATORYCLIA [id number] [address] [place] [facility] Lymphocytes (Bld) [#/Vol] 2.00 10*3/uL Normal 1.00-4.00 [facility] Comment on above: Order Comment: Speci men Type: BLOOD SPECIMENOrdering Facility: [facility] Address: [address] [place] [address] Performed By: #### 5 7021-8 ####[facility] LABORATORYCLIA [id number] [address] Lymphocytes/100 WBC (Bld) 18.1 % Normal [facility] Comment on above: Order Comment: Speci men Type: BLOOD SPECIMENOrdering Facility: [facility] Address: [address] [place] [address] Performed By: #### 5 7021-8 ####[facility] LABORATORYCLIA [id number] [address] [place] MCH (RBC) [Entitic mass] 28.1 pg Normal 26.0-34.0 [facility] Comment on above: Order Comment: Speci men Type: BLOOD SPECIMENOrdering Facility: [facility] Address: [address] [place] [address] Performed By: #### 5 7021-8 ####[facility] LABORATORYCLIA [id number] [address] [place] MCHC (RBC) [Mass/Vol] 30.7 g/dL Normal 30.5-36.0 [facility] Comment on above: Order Comment: Speci men Type: BLOOD SPECIMENOrdering Facility: [facility] Address: [address] [place] [address] Performed By: #### 5 7021-8 ####[facility] LABORATORYCLIA [id number] [address] MCV (RBC) [Entitic vol] 91.6 fL Normal 80.0-100.0 [facility] Comment on above: Order Comment: Speci men Type: BLOOD SPECIMENOrdering Facility: [facility] Address: [address] [place] [address] Performed By: #### 5 7021-8 ####[facility] LABORATORYCLIA [id number] [address] [place] [place] Monocytes (Bld) [#/Vol] 0.68 10*3/uL Normal <0.87 [facility] Comment on above: Order Comment: Speci men Type: BLOOD SPECIMENOrdering Facility: [facility] Address: [address] [place] [address] Performed By: #### 5 7021-8 ####[facility]ORATORYCLIA [id number] [address] [place] Monocytes/100 WBC (Bld) 6.2 % Normal [facility] Comment on above: Order Comment: Speci men Type: BLOOD SPECIMENOrdering Facility: [facility] Address: [address] [place] [address] Performed By: #### 5 7021-8 ####[facility]ORATORYCLIA [id number] [address] [place] Neutrophils (Bld) [#/Vol] 7.82 10*3/uL High 1.45-7.50 [facility] Comment on above: Order Comment: Speci men Type: BLOOD SPECIMENOrdering Facility: [facility] Address: [address] [place] [address] Performed By: #### 5 7021-8 ####[facility]ORATORYCLIA [id number] [address] [place] Neutrophils/100 WBC (Bld) 70.9 % Normal [facility] Comment on above: Order Comment: Speci men Type: BLOOD SPECIMENOrdering Facility: [facility] Address: [address] [place] [address] Performed By: #### 5 7021-8 ####[facility]ORATORYCLIA [id number] [address] [place] Nucleated RBC (Bld) [#/Vol] 10*3/uL Normal <0.01 [facility] Comment on above: Order Comment: Speci men Type: BLOOD SPECIMENOrdering Facility: [facility] Address: [address] [place] [address] Performed By: #### 5 7021-8 ####[facility] LABORATORYCLIA [id number] [address] [place] Nucleated RBC/100 WBC (Bld) [Ratio] 0.0 /100 WBC Normal [facility] Comment on above: Order Comment: Speci men Type: BLOOD SPECIMENOrdering Facility: [facility] Address: [address] [place] [address] Performed By: #### 5 7021-8 ####[facility] LABORATORYCLIA [id number] [address] [place] Platelet mean volume (Bld) [Entitic vol] 10.1 fL Normal 9.0-12.7 [facility] Comment on above: Order Comment: Speci men Type: BLOOD SPECIMENOrdering Facility: [facility] Address: [address] [place] [address] Performed By: #### 5 7021-8 ####[facility] LABORATORYCLIA [id number] [address] [place] Platelets (Bld) [#/Vol] 160 10*3/uL Normal 150-400 [facility] Comment on above: Order Comment: Speci men Type: BLOOD SPECIMENOrdering Facility: [facility] Address: [address] [place] [address] Performed By: #### 5 7021-8 ####[facility] LABORATORYCLIA [id number] [address] [place] RBC (Bld) [#/Vol] 3.20 10*6/uL Low 4.20-6.00 [facility] Comment on above: Order Comment: Speci men Type: BLOOD SPECIMENOrdering Facility: [facility] Address: [address] [place] [address] Performed By: #### 5 7021-8 ####[facility] LABORATORYCLIA [id number] [address] STATES OF [facility] WBC (Bld) [#/Vol] 11.03 10*3/uL High 3.70-11.00 [facility] Comment on above: Order Comment: Speci men Type: BLOOD SPECIMENOrdering Facility: [facility] Address: [address] [place] [address] Performed By: #### 5 7021-8 ####[facility] LABORATORYCLIA [id number] [address] OF [facility] CONSULT PROGon 08-09-2021 CONSULT PROG Normal [facility] CT BRAIN WO IVCONon 08-10-19 CT BRAIN WO IVCON Normal [facility] CT BRAIN WO IVCON Normal [facility] Magnesium SerPl-mCncon 08-09 Magnesium [Mass/Vol] 2.0 mg/dL Normal 1.7-2.3 [facility] Comment on above: Order Comment: Speci men Type: BLOOD SPECIMENOrdering Facility: [facility] Address: [address] [place] [address] Performed By: #### 2 4321-2, 50657-0, 2777-1 ####[facility] LABORATORYCLIA [id number] [address] [place] NURSING PROGon 08-09-2021 NURSING PROG Normal [facility] OPERATIVE NOon 08-09-2021 OPERATIVE NO Normal [facility] PT panel Coag (PPP)on 2021 INR Coag (PPP) [Relative time] 1.1 {INR} Normal 0.9-1.3 [facility] Comment on above: Order Comment: Speci men Type: BLOOD SPECIMENOrdering Facility: [facility] Address: [address] [place] [address] Result Comment: Yris min K Antagonist (VKA) Therapeutic Range: INR 2 to 3 (Target INR of 2.5)Note: For patients treated with VKA drugs, such as warfarin, the [place] [employer] 2012 Guideline recommends [...] al. Chest 2012, 141:7S-47SNishimura RA, et al. [facility] 2017, 70: 252-289 Performed By: #### 3 4528-0, 35877-1 ####[facility] LABORATORYCLIA [id number] [address] STATES OF [facility] PT Coag (PPP) [Time] 11.7 s Normal 9.7-13.0 [facility] Comment on above: Order Comment: Speci men Type: BLOOD SPECIMENOrdering Facility: [facility] Address: [address] [place] [address] Performed By: #### 3 4528-0, 22733-8 ####[facility] LABORATORYCLIA [id number] [address] [place] Phosphate SerPl-mCncon 08-09 Phosphate [Mass/Vol] 4.0 mg/dL Normal 2.7-4.8 [facility] Comment on above: Order Comment: Speci men Type: BLOOD SPECIMENOrdering Facility: [facility] Address: [address] [place] [address] Performed By: #### 2 4321-2, 87319-0, 2777-1 ####[facility] LABORATORYCLIA [id number] [address] [place] THERAPY NTon 04-05-2022 THERAPY NT Normal [facility] THERAPY NT Normal [facility] TYPE AND SCREENon 08-09-2021 ABO O Normal [facility] Comment on above: Order Comment: Speci men Type: BLOOD SPECIMENOrdering Facility: [facility] Address: [address] [place] [address] Performed By: #### T SCR ####[facility] BLOOD BANKCLIA [id number] [address] HISTORICAL AB SCR STATUS Negative Normal [facility] Comment on above: Order Comment: Speci men Type: BLOOD SPECIMENOrdering Facility: [facility] Address: [address] [place] [address] Performed By: #### T SCR ####[facility] BLOOD BANKCLIA [id number] [address] [place] Rh Nom (Bld) Positive Normal [facility] Comment on above: Order Comment: Speci men Type: BLOOD SPECIMENOrdering Facility: [facility] Address: [address] [place] [address] Performed By: #### T SCR ####[facility] BLOOD BANKCLIA [id number] [address] [place] TYPE AND SCREEN EXPIRATION 08/12/2021 23:59 Normal [facility] Comment on above: Order Comment: Speci men Type: BLOOD SPECIMENOrdering Facility: [facility] Address: [address] [place] [address] Performed By: #### T SCR ####[facility] BLOOD BANKCLIA [id number] [address] [place] XR ABD 2V SUPINE W UPR/DECUB /CTLon 08-09-2021 XR ABD 2V SUPINE W UPR/DECUB/CTL Normal [facility] XR CHEST 1V FRONTALon 2021 XR CHEST 1V FRONTAL Normal [facility] XR NECK SOFT TISSUE 2V AP/LA Ton 08-09-2021 XR NECK SOFT TISSUE 2V AP/LAT Normal [facility] XR SKULL 2V AP/LATon 022 XR SKULL 2V AP/LAT Normal [facility] aPTT PPPon 08-09-2021 aPTT Coag (PPP) [Time] 26.8 s Normal 23.0-32.4 [facility] Comment on above: Order Comment: Speci men Type: BLOOD SPECIMENOrdering Facility: [facility] Address: [address] [place] [address] Performed By: #### 3 4528-0, 45412-0 ####[facility] LABORATORYCLIA [id number] [address] [place] CASE MANAGEMon 08-08-2021 CASE MANAGEM Normal [facility] CBC W Auto Differential pane l (Bld)on 08-08-2021 Basophils (Bld) [#/Vol] 0.05 10*3/uL Normal <0.11 [facility] Comment on above: Order Comment: Speci men Type: BLOOD SPECIMENOrdering Facility: [facility] Address: [address] [place] [address] Performed By: #### 5 7021-8 ####[facility] LABORATORYCLIA [id number] [address] [place] Basophils/100 WBC (Bld) 0.5 % Normal [facility] Comment on above: Order Comment: Speci men Type: BLOOD SPECIMENOrdering Facility: [facility] Address: [address] [place] [address] Performed By: #### 5 7021-8 ####[facility] LABORATORYCLIA [id number] [address] [place] Differential cell count method Nom (Bld) Auto Normal [facility] Comment on above: Order Comment: Speci men Type: BLOOD SPECIMENOrdering Facility: [facility] Address: [address] [place] [address] Performed By: #### 5 7021-8 ####[facility] LABORATORYCLIA [id number] [place] [address] [place] Eosinophils (Bld) [#/Vol] 0.17 10*3/uL Normal <0.46 [facility] Comment on above: Order Comment: Speci men Type: BLOOD SPECIMENOrdering Facility: [facility] Address: [address] [place] [address] Performed By: #### 5 7021-8 ####[facility] LABORATORYCLIA [id number] [address] Eosinophils/100 WBC (Bld) 1.6 % Normal [facility] Comment on above: Order Comment: Speci men Type: BLOOD SPECIMENOrdering Facility: [facility] Address: [address] [place] [address] Performed By: #### 5 7021-8 ####[facility] LABORATORYCLIA [id number] [address] [place] Erythrocyte distribution width (RBC) [Ratio] 17.8 % High 11.5-15.0 [facility] Comment on above: Order Comment: Speci men Type: BLOOD SPECIMENOrdering Facility: [facility] Address: [address] [place] [address] Performed By: #### 5 7021-8 ####[facility] LABORATORYCLIA [id number] [address] [place] Hematocrit (Bld) [Volume fraction] 29.6 % Low 39.0-51.0 [facility] Comment on above: Order Comment: Speci men Type: BLOOD SPECIMENOrdering Facility: [facility] Address: [address] [place] [address] Performed By: #### 5 7021-8 ####[facility] LABORATORYCLIA [id number] [address] [place] Hemoglobin (Bld) [Mass/Vol] 9.0 g/dL Low 13.0-17.0 [facility] Comment on above: Order Comment: Speci men Type: BLOOD SPECIMENOrdering Facility: [facility] Address: [address] [place] [address] Performed By: #### 5 7021-8 ####[facility] LABORATORYCLIA [id number] [address] IMMATURE GRAN % 0.5 % Normal [facility] Comment on above: Order Comment: Speci men Type: BLOOD SPECIMENOrdering Facility: [facility] Address: [address] [place] [address] Performed By: #### 5 7021-8 ####[facility] LABORATORYCLIA [id number] [address] IMMATURE GRAN ABS 0.05 k/uL Normal <0.10 [facility] Comment on above: Order Comment: Speci men Type: BLOOD SPECIMENOrdering Facility: [facility] Address: [address] [place] [address] Performed By: #### 5 7021-8 ####[facility] LABORATORYCLIA [id number] [address] [place] Lymphocytes (Bld) [#/Vol] 1.93 10*3/uL Normal 1.00-4.00 [facility] Comment on above: Order Comment: Speci men Type: BLOOD SPECIMENOrdering Facility: [facility] Address: [address] [place] [address] Performed By: #### 5 7021-8 ####[facility] LABORATORYCLIA [id number] [address] Lymphocytes/100 WBC (Bld) 18.2 % Normal [facility] Comment on above: Order Comment: Speci men Type: BLOOD SPECIMENOrdering Facility: [facility] Address: [address] [place] [address] Performed By: #### 5 7021-8 ####[facility] LABORATORYCLIA [id number] [address] [place] MCH (RBC) [Entitic mass] 28.1 pg Normal 26.0-34.0 [facility] Comment on above: Order Comment: Speci men Type: BLOOD SPECIMENOrdering Facility: [facility] Address: [address] [place] [address] Performed By: #### 5 7021-8 ####[facility] LABORATORYCLIA [id number] [address] STATES [facility] MCHC (RBC) [Mass/Vol] 30.4 g/dL Low 30.5-36.0 [facility] Comment on above: Order Comment: Speci men Type: BLOOD SPECIMENOrdering Facility: [facility] Address: [address] [place] [address] Performed By: #### 5 7021-8 ####[facility] LABORATORYCLIA [id number] [address] MCV (RBC) [Entitic vol] 92.5 fL Normal 80.0-100.0 [facility] Comment on above: Order Comment: Speci men Type: BLOOD SPECIMENOrdering Facility: [facility] Address: [address] [place] [address] Performed By: #### 5 7021-8 ####[facility] LABORATORYCLIA [id number] [address] STATES OF [facility] Monocytes (Bld) [#/Vol] 0.75 10*3/uL Normal <0.87 [facility] Comment on above: Order Comment: Speci men Type: BLOOD SPECIMENOrdering Facility: [facility] Address: [address] [place] [address] Performed By: #### 5 7021-8 ####[facility] LABORATORYCLIA [id number] [address] Monocytes/100 WBC (Bld) 7.1 % Normal [facility] Comment on above: Order Comment: Speci men Type: BLOOD SPECIMENOrdering Facility: [facility] Address: [address] [place] [address] Performed By: #### 5 7021-8 ####[facility] LABORATORYCLIA [id number] [address] [place] Neutrophils (Bld) [#/Vol] 7.65 10*3/uL High 1.45-7.50 [facility] Comment on above: Order Comment: Speci men Type: BLOOD SPECIMENOrdering Facility: [facility] Address: [address] [place] [address] Performed By: #### 5 7021-8 ####[facility] LABORATORYCLIA [id number] [address] Neutrophils/100 WBC (Bld) 72.1 % Normal [facility] Comment on above: Order Comment: Speci men Type: BLOOD SPECIMENOrdering Facility: [facility] Address: [address] [place] [address] Performed By: #### 5 7021-8 ####[facility] LABORATORYCLIA [id number] [address] Nucleated RBC (Bld) [#/Vol] 10*3/uL Normal <0.01 [facility] Comment on above: Order Comment: Speci men Type: BLOOD SPECIMENOrdering Facility: [facility] Address: [address] [place] [address] Performed By: #### 5 7021-8 ####[facility] LABORATORYCLIA [id number] [address] Nucleated RBC/100 WBC (Bld) [Ratio] 0.0 /100 WBC Normal [facility] Comment on above: Order Comment: Speci men Type: BLOOD SPECIMENOrdering Facility: [facility] Address: [address] [place] [address] Performed By: #### 5 7021-8 ####[facility] LABORATORYCLIA [id number] [address] Platelet mean volume (Bld) [Entitic vol] 9.8 fL Normal 9.0-12.7 [facility] Comment on above: Order Comment: Speci men Type: BLOOD SPECIMENOrdering Facility: [facility] Address: [address] [place] [address] Performed By: #### 5 7021-8 ####[facility] LABORATORYCLIA [id number] [address] [place] Platelets (Bld) [#/Vol] 175 10*3/uL Normal 150-400 [facility] Comment on above: Order Comment: Speci men Type: BLOOD SPECIMENOrdering Facility: [facility] Address: [address] [place] [address] Performed By: #### 5 7021-8 ####[facility] LABORATORYCLIA [id number] [address] [place] RBC (Bld) [#/Vol] 3.20 10*6/uL Low 4.20-6.00 [facility] Comment on above: Order Comment: Speci men Type: BLOOD SPECIMENOrdering Facility: [facility] Address: [address] [place] [address] Performed By: #### 5 7021-8 ####[facility] LABORATORYCLIA [id number] [address] WBC (Bld) [#/Vol] 10.60 10*3/uL Normal 3.70-11.00 [facility] Comment on above: Order Comment: Speci men Type: BLOOD SPECIMENOrdering Facility: [facility] Address: [address] [place] [address] Performed By: #### 5 7021-8 ####[facility] LABORATORYCLIA [id number] [address] [place] CT BRAIN WO IVCONon 08-09-19 CT BRAIN WO IVCON Normal [facility] NURSING PROGon 08-08-2021 NURSING PROG Normal [facility] Prealbumin [Mass/Vol]on Prealbumin Nephelometry [Mass/Vol] 29 mg/dL Normal [facility] Comment on above: Order Comment: Speci men Type: BLOOD SPECIMENOrdering Facility: [facility] Address: [address] [place] [address] Performed By: #### 1 4338-8 ####[facility] LABORATORYCLIA [id number] [address] SARS-CoV-2 RNA Resp Ql MEGAN+p robeon 08-08-2021 SARS-CoV-2 (COVID-19) RNA MEGAN+probe Ql (Resp) COVID 19 RESULT: SARS-CoV-2 (Agent of COVID-19) Not Detected by RT-PCR or equivalent method. This test has been authorized by FDA under an Emergency Use Authorization (EUA). Normal [facility] Comment on above: Performed By: #### 9 4500-6 ####[facility] LABORATORYCLIA [id number] [place] [address] [place] ALLIED HEALTHon 08-07-2021 ALLIED HEALTH Normal [facility] Basic metabolic 2000 panelon 08-07-2021 Anion gap [Moles/Vol] 9 mmol/L Normal 9-18 [facility] Comment on above: Order Comment: Speci men Type: BLOOD SPECIMENOrdering Facility: [facility] Address: [address] [place] [address] Performed By: #### 2 4321-2, 277-, , HFP ####[facility]PITALCLIA [id number] [place] [address] [place] Calcium [Mass/Vol] 9.4 mg/dL Normal 8.5-10.2 [facility] Comment on above: Order Comment: Speci men Type: BLOOD SPECIMENOrdering Facility: [facility] Address: [address] [place] [address] Performed By: #### 2 4321-2, 277-, , HFP ####[facility] LABORATORYCLIA [id number] [place] [address] [place] Chloride [Moles/Vol] 98 mmol/L Normal 97-105 [facility] Comment on above: Order Comment: Speci men Type: BLOOD SPECIMENOrdering Facility: [facility] Address: [address] [place] [address] Performed By: #### 2 4321-2, 277-, , HFP ####[facility] LABORATORYCLIA [id number] [place] [address] [place] CO2 [Moles/Vol] 29 mmol/L Normal 22-30 [facility] Comment on above: Order Comment: Shira feldman Type: BLOOD SPECIMENOrdering Facility: [facility] Address: [address] [place] [address] Performed By: #### 2 4321-2, 2777-, , [facility] ####[facility] [id number] [address] [place] Creatinine [Mass/Vol] 0.67 mg/dL Low 0.73-1.22 [facility] Comment on above: Order Comment: Shira feldman Type: BLOOD SPECIMENOrdering Facility: [facility] Address: [address] [place] [address] Performed By: #### 2 4321-2, 27711-04, , [facility] ####[facility] [id number] [address] ESTIMATED GLOMERULAR FILTRATION RATE 101 mL/min/1.73m??? Normal >=60 [facility] Comment on above: Order Comment: Shira feldman Type: BLOOD SPECIMENOrdering Facility: [facility] Address: [address] [place] [address] Result Comment: Luzmaria mated Glomerular Filtration Rate [...] actual GFR. Performed By: #### 2 4321-2, 277-, , [facility] ####[facility] LABORATORYIA [id number] [place] [address] [place] Glucose [Mass/Vol] 117 mg/dL High 74-99 [facility] Comment on above: Order Comment: Shira feldman Type: BLOOD SPECIMENOrdering Facility: [facility] Address: [address] [id number] Result Comment: The [place] [employer] (ADA) provides guidance for cutoff [...] Standards of Medical Care in Diabetes 2016, [place] [employer]. Diabetes Care. 2016.39(Suppl 1). Performed By: #### 2 4321-2, 2776-05, , [facility] ####[facility] LABORATORYCLIA [id number] [place] [address] [place] Potassium [Moles/Vol] 4.1 mmol/L Normal 3.7-5.1 [facility] Comment on above: Order Comment: Speci men Type: BLOOD SPECIMENOrdering Facility: [facility] Address: [address] [id number] Performed By: #### 2 4321-2, 2776-05, , [facility] ####[facility] LABORATORYCLIA [id number] [place] [address] [place] Sodium [Moles/Vol] 136 mmol/L Normal 136-144 [facility] Comment on above: Order Comment: Speci men Type: BLOOD SPECIMENOrdering Facility: [facility] Address: [address] [id number] Performed By: #### 2 4321-2, 2776-05, , [facility] ####[facility] LABORATORYCLIA [id number] [place] [address] [place] Urea nitrogen [Mass/Vol] 31 mg/dL High 9-24 [facility] Comment on above: Order Comment: Speci men Type: BLOOD SPECIMENOrdering Facility: [facility] Address: [address] [place] [address] Performed By: #### 2 4321-2, 2777-1, 99490-9, HFP ####[facility] LABORATORYCLIA [id number] [address] STATES [facility] CBC W Auto Differential pane l (Bld)on 08-07-2021 Basophils (Bld) [#/Vol] 0.03 10*3/uL Normal <0.11 [facility] Comment on above: Order Comment: Speci men Type: BLOOD SPECIMENOrdering Facility: [facility] Address: [address] [place] [address] Performed By: #### 5 7021-8 ####[facility] LABORATORYCLIA [id number] [address] [place] [facility] Basophils/100 WBC (Bld) 0.3 % Normal [facility] Comment on above: Order Comment: Speci men Type: BLOOD SPECIMENOrdering Facility: [facility] Address: [address] [place] [address] Performed By: #### 5 7021-8 ####[facility] LABORATORYCLIA [id number] [address] Differential cell count method Nom (Bld) Auto Normal [facility] Comment on above: Order Comment: Speci men Type: BLOOD SPECIMENOrdering Facility: [facility] Address: [address] [place] [address] Performed By: #### 5 7021-8 ####[facility] LABORATORYCLIA [id number] [address] [place] Eosinophils (Bld) [#/Vol] 0.16 10*3/uL Normal <0.46 [facility] Comment on above: Order Comment: Speci men Type: BLOOD SPECIMENOrdering Facility: [facility] Address: [address] [place] [address] Performed By: #### 5 7021-8 ####[facility] LABORATORYCLIA [id number] [place] [address] Eosinophils/100 WBC (Bld) 1.6 % Normal [facility] Comment on above: Order Comment: Speci men Type: BLOOD SPECIMENOrdering Facility: [facility] Address: [address] [place] [address] Performed By: #### 5 7021-8 ####[facility] LABORATORYCLIA [id number] [address] [employer] distribution width (RBC) [Ratio] 18.1 % High 11.5-15.0 [facility] Comment on above: Order Comment: Speci men Type: BLOOD SPECIMENOrdering Facility: [facility] Address: [address] [place] [address] Performed By: #### 5 7021-8 ####[facility] LABORATORYCLIA [id number] [address] Hematocrit (Bld) [Volume fraction] 30.6 % Low 39.0-51.0 [facility] Comment on above: Order Comment: Speci men Type: BLOOD SPECIMENOrdering Facility: [facility] Address: [address] [place] [address] Performed By: #### 5 7021-8 ####[facility] LABORATORYCLIA [id number] [address] Hemoglobin (Bld) [Mass/Vol] 9.4 g/dL Low 13.0-17.0 [facility] Comment on above: Order Comment: Speci men Type: BLOOD SPECIMENOrdering Facility: [facility] Address: [address] [place] [address] Performed By: #### 5 7021-8 ####[facility] LABORATORYCLIA [id number] [address] IMMATURE GRAN % 0.4 % Normal [facility] Comment on above: Order Comment: Speci men Type: BLOOD SPECIMENOrdering Facility: [facility] Address: [address] [place] [address] Performed By: #### 5 7021-8 ####[facility] LABORATORYCLIA [id number] [address] IMMATURE GRAN ABS 0.04 k/uL Normal <0.10 [facility] Comment on above: Order Comment: Speci men Type: BLOOD SPECIMENOrdering Facility: [facility] Address: [address] [place] [address] Performed By: #### 5 7021-8 ####[facility] LABORATORYCLIA [id number] [address] Lymphocytes (Bld) [#/Vol] 2.05 10*3/uL Normal 1.00-4.00 [facility] Comment on above: Order Comment: Speci men Type: BLOOD SPECIMENOrdering Facility: [facility] Address: [address] [place] [address] Performed By: #### 5 7021-8 ####[facility] LABORATORYCLIA [id number] [address] Lymphocytes/100 WBC (Bld) 20.2 % Normal [facility] Comment on above: Order Comment: Speci men Type: BLOOD SPECIMENOrdering Facility: [facility] Address: [address] [place] [address] Performed By: #### 5 7021-8 ####[facility] LABORATORYCLIA [id number] [address] MCH (RBC) [Entitic mass] 28.8 pg Normal 26.0-34.0 [facility] Comment on above: Order Comment: Speci men Type: BLOOD SPECIMENOrdering Facility: [facility] Address: [address] [place] [address] Performed By: #### 5 7021-8 ####[facility] LABORATORYCLIA [id number] [address] MCHC (RBC) [Mass/Vol] 30.7 g/dL Normal 30.5-36.0 [facility] Comment on above: Order Comment: Speci men Type: BLOOD SPECIMENOrdering Facility: [facility] Address: [address] [place] [address] Performed By: #### 5 7021-8 ####[facility]ORATORYCLIA [id number] [address] [place] MCV (RBC) [Entitic vol] 93.9 fL Normal 80.0-100.0 [facility] Comment on above: Order Comment: Speci men Type: BLOOD SPECIMENOrdering Facility: [facility] Address: [address] [place] [address] Performed By: #### 5 7021-8 ####[facility] LABORATORYCLIA [id number] [address] [place] Monocytes (Bld) [#/Vol] 0.64 10*3/uL Normal <0.87 [facility] Comment on above: Order Comment: Speci men Type: BLOOD SPECIMENOrdering Facility: [facility] Address: [address] [place] [address] Performed By: #### 5 7021-8 ####[facility] LABORATORYCLIA [id number] [address] [place] Monocytes/100 WBC (Bld) 6.3 % Normal [facility] Comment on above: Order Comment: Speci men Type: BLOOD SPECIMENOrdering Facility: [facility] Address: [address] [place] [address] Performed By: #### 5 7021-8 ####[facility] LABORATORYCLIA [id number] [address] [place] Neutrophils (Bld) [#/Vol] 7.22 10*3/uL Normal 1.45-7.50 [facility] Comment on above: Order Comment: Speci men Type: BLOOD SPECIMENOrdering Facility: [facility] Address: [address] [place] [address] Performed By: #### 5 7021-8 ####[facility] LABORATORYCLIA [id number] [address] [place] Neutrophils/100 WBC (Bld) 71.2 % Normal [facility] Comment on above: Order Comment: Speci men Type: BLOOD SPECIMENOrdering Facility: [facility] Address: [facility] [address] Performed By: #### 5 7021-8 ####[facility] LABORATORYCLIA [id number] [address] [place] Nucleated RBC (Bld) [#/Vol] 10*3/uL Normal <0.01 [facility] Comment on above: Order Comment: Speci men Type: BLOOD SPECIMENOrdering Facility: [facility] Address: [address] [place] [address] Performed By: #### 5 7021-8 ####[facility] LABORATORYCLIA [id number] [address] [place] Nucleated RBC/100 WBC (Bld) [Ratio] 0.0 /100 WBC Normal [facility] Comment on above: Order Comment: Speci men Type: BLOOD SPECIMENOrdering Facility: [facility] Address: [address] [place] [address] Performed By: #### 5 7021-8 ####[facility] LABORATORYCLIA [id number] [address] [place] Platelet mean volume (Bld) [Entitic vol] 9.9 fL Normal 9.0-12.7 [facility] Comment on above: Order Comment: Speci men Type: BLOOD SPECIMENOrdering Facility: [facility] Address: [address] Performed By: #### 5 7021-8 ####[facility] LABORATORYCLIA [id number] [place] [address] [place] Platelets (Bld) [#/Vol] 227 10*3/uL Normal 150-400 [facility] Comment on above: Order Comment: Speci men Type: BLOOD SPECIMENOrdering Facility: [facility] Address: [address] Performed By: #### 5 7021-8 ####[facility] LABORATORYCLIA [id number] [place] [address] [place] RBC (Bld) [#/Vol] 3.26 10*6/uL Low 4.20-6.00 [facility] Comment on above: Order Comment: Speci men Type: BLOOD SPECIMENOrdering Facility: [facility] Address: [address] [place] [address] Performed By: #### 5 7021-8 ####[facility] LABORATORYCLIA [id number] [address] [place] [facility] WBC (Bld) [#/Vol] 10.14 10*3/uL Normal 3.70-11.00 [facility] Comment on above: Order Comment: Speci men Type: BLOOD SPECIMENOrdering Facility: [facility] Address: [address] [place] [address] Performed By: #### 5 7021-8 ####[facility] LABORATORYCLIA [id number] [address] [place] CT BRAIN WO IVCONon 08-08-19 CT BRAIN WO IVCON Normal [facility] HEPATIC FUNCTION PNLon 08-07 Albumin [Mass/Vol] 3.6 g/dL Low 3.9-4.9 [facility] Comment on above: Order Comment: Speci men Type: BLOOD SPECIMENOrdering Facility: [facility] Address: [address] [place] [address] Performed By: #### 2 4321-2, 27711-04, , [facility] ####[facility] LABORATORYCLIA [id number] [address] [place] ALP [Catalytic activity/Vol] 124 U/L High 38-113 [facility] Comment on above: Order Comment: Speci men Type: BLOOD SPECIMENOrdering Facility: [facility] Address: [address] [place] [address] Performed By: #### 2 4321-2, 2777-, , HFP ####[facility] LABORATORYCLIA [id number] [place] [address] [place] ALT With P-5'-P [Catalytic activity/Vol] 29 U/L Normal 10-54 [facility] Comment on above: Order Comment: Speci men Type: BLOOD SPECIMENOrdering Facility: [facility] Address: [address] [place] [address] Performed By: #### 2 4321-2, 2776-, , HFP ####[facility] LABORATORYCLIA [id number] [place] [id number] [place] [facility] AST With P-5'-P [Catalytic activity/Vol] 18 U/L Normal 14-40 [facility] Comment on above: Order Comment: Speci men Type: BLOOD SPECIMENOrdering Facility: [facility] Address: [address] [place] [address] Performed By: #### 2 4321-2, 2776-05, , HFP ####[facility]PITALCLIA [id number] [address] [place] Bilirubin [Mass/Vol] 0.3 mg/dL Normal 0.2-1.3 [facility] Comment on above: Order Comment: Speci men Type: BLOOD SPECIMENOrdering Facility: [facility] Address: [address] [place] [address] Performed By: #### 2 4321-2, 2776-05, , HFP ####[facility] LABORATORYCLIA [id number] [address] Bilirubin.conjugated [Mass/Vol] mg/dL Normal <0.2 [facility] Comment on above: Order Comment: Speci men Type: BLOOD SPECIMENOrdering Facility: [facility] Address: [address] [place] [address] Performed By: #### 2 4321-2, 2776-05, , HFP ####[facility] LABORATORYCLIA [id number] [address] [place] Protein [Mass/Vol] 6.4 g/dL Normal 6.3-8.0 [facility] Comment on above: Order Comment: Speci men Type: BLOOD SPECIMENOrdering Facility: [facility] Address: [address] [place] [address] Performed By: #### 2 4321-2, 2777-1, , HFP ####[facility] LABORATORYCLIA [id number] [place] [address] [place] Magnesium SerPl-mCncon 08-07 Magnesium [Mass/Vol] 2.3 mg/dL Normal 1.7-2.3 [facility] Comment on above: Order Comment: Speci men Type: BLOOD SPECIMENOrdering Facility: [facility] Address: [address] [place] [address] Performed By: #### 2 4321-2, 2776-, , HFP ####[facility] LABORATORYCLIA [id number] [place] [address] [place] NURSING PROGon 08-07-2021 NURSING PROG Normal [facility] Phosphate SerPl-mCncon 08-07 Phosphate [Mass/Vol] 3.5 mg/dL Normal 2.7-4.8 [facility] Comment on above: Order Comment: Speci men Type: BLOOD SPECIMENOrdering Facility: [facility] Address: [address] [place] [address] Performed By: #### 2 4321-2, 2776-05, , HFP ####[facility] LABORATORYCLIA [id number] [place] [address] [place] ANES POSTPROC EVALon 022 ANES POSTPROC EVAL Normal [facility] Basic metabolic 2000 panelon 08-06-2021 Anion gap [Moles/Vol] 11 mmol/L Normal 9-18 [facility] Comment on above: Order Comment: Speci men Type: BLOOD SPECIMENOrdering Facility: [facility] Address: [address] [place] [address] Performed By: #### 2 4321-2, 2776-, ####[facility] LABORATORYCLIA [id number] [place] [address] [place] Calcium [Mass/Vol] 8.2 mg/dL Low 8.5-10.2 [facility] Comment on above: Order Comment: Speci men Type: BLOOD SPECIMENOrdering Facility: [facility] Address: [address] [place] [address] Performed By: #### 2 4321-2, 2776-05, ####[facility] LABORATORYCLIA [id number] [place] [address] [place] Chloride [Moles/Vol] 100 mmol/L Normal 97-105 [facility] Comment on above: Order Comment: Speci men Type: BLOOD SPECIMENOrdering Facility: [facility] Address: [address] [place] [address] Performed By: #### 2 4321-2, 2776-05, ####[facility] LABORATORYCLIA [id number] [place] [address] [place] CO2 [Moles/Vol] 23 mmol/L Normal 22-30 [facility] Comment on above: Order Comment: Speci men Type: BLOOD SPECIMENOrdering Facility: [facility] Address: [address] [place] [address] Performed By: #### 2 4321-2, 2776-05, ####[facility] LABORATORYCLIA [id number] [place] [address] [place] Creatinine [Mass/Vol] 0.55 mg/dL Low 0.73-1.22 [facility] Comment on above: Order Comment: Speci men Type: BLOOD SPECIMENOrdering Facility: [facility] Address: [address] [place], [place] [address] Performed By: #### 2 4321-2, 27711-04, ####[facility] LABORATORYCLIA [id number] [place] [address] [place] ESTIMATED GLOMERULAR FILTRATION RATE 107 mL/min/1.73m??? Normal >=60 [facility] Comment on above: Order Comment: Johncara feldman Type: BLOOD SPECIMENOrdering Facility: [facility] Address: [address] [place] [address] Result Comment: Luzmaria mated Glomerular Filtration Rate [...] GFR. Performed By: #### 2 4321-2, 2777-, ####[facility] LABORATORYCLIA [id number] [place] [address] [place] Glucose [Mass/Vol] 275 mg/dL High 74-99 [facility] Comment on above: Order Comment: Shira feldman Type: BLOOD SPECIMENOrdering Facility: [facility] Address: [address] [place] [address] Result Comment: The [place] [employer] (ADA) provides guidance for cutoff [...] Standards of Medical Care in Diabetes 2016, [place] [employer]. Diabetes Care. 2016.39(Suppl 1). Performed By: #### 2 4321-2, 2777-, ####[facility] LABORATORYCLIA [id number] [place] [address] [place] Potassium [Moles/Vol] 3.6 mmol/L Low 3.7-5.1 [facility] Comment on above: Order Comment: Speci men Type: BLOOD SPECIMENOrdering Facility: [facility] Address: [address] [place], [place] [address] Performed By: #### 2 4321-2, 2776-05, ####[facility] LABORATORYCLIA [id number] [place] [address] [place] Sodium [Moles/Vol] 134 mmol/L Low 136-144 [facility] Comment on above: Order Comment: Speci men Type: BLOOD SPECIMENOrdering Facility: [facility] Address: [address] [place] [address] Performed By: #### 2 4321-2, 2776-05, ####[facility] LABORATORYCLIA [id number] [address] [place] Urea nitrogen [Mass/Vol] 29 mg/dL High 9-24 [facility] Comment on above: Order Comment: Speci men Type: BLOOD SPECIMENOrdering Facility: [facility] Address: [address] [place] [address] Performed By: #### 2 4321-2, 2776-05, ####[facility] LABORATORYCLIA [id number] [address] [place] CBC W Auto Differential pane l (Bld)on 08-06-2021 Basophils (Bld) [#/Vol] 0.03 10*3/uL Normal <0.11 [facility] Comment on above: Order Comment: Speci men Type: BLOOD SPECIMENOrdering Facility: [facility] Address: [address] [place] [address] Performed By: #### 5 7021-8 ####[facility] LABORATORYCLIA [id number] [address] Basophils/100 WBC (Bld) 0.3 % Normal [facility] Comment on above: Order Comment: Speci men Type: BLOOD SPECIMENOrdering Facility: [facility] Address: [address] [place] [address] Performed By: #### 5 7021-8 ####[facility] LABORATORYCLIA [id number] [address] Differential cell count method Nom (Bld) Auto Normal [facility] Comment on above: Order Comment: Speci men Type: BLOOD SPECIMENOrdering Facility: [facility] Address: [address] [place] [address] Performed By: #### 5 7021-8 ####[facility] LABORATORYCLIA [id number] [address] [place] Eosinophils (Bld) [#/Vol] 0.18 10*3/uL Normal <0.46 [facility] Comment on above: Order Comment: Speci men Type: BLOOD SPECIMENOrdering Facility: [facility] Address: [address] [place] [address] Performed By: #### 5 7021-8 ####[facility] LABORATORYCLIA [id number] [address] Eosinophils/100 WBC (Bld) 1.6 % Normal [facility] Comment on above: Order Comment: Speci men Type: BLOOD SPECIMENOrdering Facility: [facility] Address: [address] [place] [address] Performed By: #### 5 7021-8 ####[facility] LABORATORYCLIA [id number] [address] [place] Erythrocyte distribution width (RBC) [Ratio] 17.9 % High 11.5-15.0 [facility] Comment on above: Order Comment: Speci men Type: BLOOD SPECIMENOrdering Facility: [facility] Address: [address] [place] [address] Performed By: #### 5 7021-8 ####[facility] LABORATORYCLIA [id number] [address] [place] Hematocrit (Bld) [Volume fraction] 27.6 % Low 39.0-51.0 [facility] Comment on above: Order Comment: Speci men Type: BLOOD SPECIMENOrdering Facility: [facility] Address: [address] [place] [address] Performed By: #### 5 7021-8 ####[facility] LABORATORYCLIA [id number] [address] Hemoglobin (Bld) [Mass/Vol] 8.5 g/dL Low 13.0-17.0 [facility] Comment on above: Order Comment: Speci men Type: BLOOD SPECIMENOrdering Facility: [facility] Address: [address] [place] [address] Performed By: #### 5 7021-8 ####[facility] LABORATORYCLIA [id number] [address] IMMATURE GRAN % 0.6 % Normal [facility] Comment on above: Order Comment: Speci men Type: BLOOD SPECIMENOrdering Facility: [facility] Address: [address] [place] [address] Performed By: #### 5 7021-8 ####[facility] LABORATORYCLIA [id number] [address] IMMATURE GRAN ABS 0.07 k/uL Normal <0.10 [facility] Comment on above: Order Comment: Speci men Type: BLOOD SPECIMENOrdering Facility: [facility] Address: [address] [place] [address] Performed By: #### 5 7021-8 ####[facility] LABORATORYCLIA [id number] [address] Lymphocytes (Bld) [#/Vol] 1.81 10*3/uL Normal 1.00-4.00 [facility] Comment on above: Order Comment: Speci men Type: BLOOD SPECIMENOrdering Facility: [facility] Address: [address] [place] [address] Performed By: #### 5 7021-8 ####[facility] LABORATORYCLIA [id number] [address] Lymphocytes/100 WBC (Bld) 15.7 % Normal [facility] Comment on above: Order Comment: Speci men Type: BLOOD SPECIMENOrdering Facility: [facility] Address: [address] [place] [address] Performed By: #### 5 7021-8 ####[facility] LABORATORYCLIA [id number] [address] MCH (RBC) [Entitic mass] 28.6 pg Normal 26.0-34.0 [facility] Comment on above: Order Comment: Speci men Type: BLOOD SPECIMENOrdering Facility: [facility] Address: [address] [place] [address] Performed By: #### 5 7021-8 ####[facility] LABORATORYCLIA [id number] [address] MCHC (RBC) [Mass/Vol] 30.8 g/dL Normal 30.5-36.0 [facility] Comment on above: Order Comment: Speci men Type: BLOOD SPECIMENOrdering Facility: [facility] Address: [address] [place] [address] Performed By: #### 5 7021-8 ####[facility] LABORATORYCLIA [id number] [address] MCV (RBC) [Entitic vol] 92.9 fL Normal 80.0-100.0 [facility] Comment on above: Order Comment: Speci men Type: BLOOD SPECIMENOrdering Facility: [facility] Address: [address] [place] [address] Performed By: #### 5 7021-8 ####[facility] LABORATORYCLIA [id number] [address] Monocytes (Bld) [#/Vol] 0.63 10*3/uL Normal <0.87 [facility] Comment on above: Order Comment: Speci men Type: BLOOD SPECIMENOrdering Facility: [facility] Address: [address] [place] [address] Performed By: #### 5 7021-8 ####[facility]ORATORYCLIA [id number] [address] [place] Monocytes/100 WBC (Bld) 5.5 % Normal [facility] Comment on above: Order Comment: Speci men Type: BLOOD SPECIMENOrdering Facility: [facility] Address: [address] [place] [address] Performed By: #### 5 7021-8 ####[facility]ATORYCLIA [id number] [address] [place] Neutrophils (Bld) [#/Vol] 8.78 10*3/uL High 1.45-7.50 [facility] Comment on above: Order Comment: Speci men Type: BLOOD SPECIMENOrdering Facility: [facility] Address: [address] [place] [address] Performed By: #### 5 7021-8 ####[facility]ATORYCLIA [id number] [address] Neutrophils/100 WBC (Bld) 76.3 % Normal [facility] Comment on above: Order Comment: Speci men Type: BLOOD SPECIMENOrdering Facility: [facility] Address: [address] [place] [address] Performed By: #### 5 7021-8 ####[facility]ORATORYCLIA [id number] [address] [place] Nucleated RBC (Bld) [#/Vol] 10*3/uL Normal <0.01 [facility] Comment on above: Order Comment: Speci men Type: BLOOD SPECIMENOrdering Facility: [facility] Address: [address] [place] [address] Performed By: #### 5 7021-8 ####[facility]ATORYCLIA [id number] [address] [place] Nucleated RBC/100 WBC (Bld) [Ratio] 0.0 /100 WBC Normal [facility] Comment on above: Order Comment: Speci men Type: BLOOD SPECIMENOrdering Facility: [facility] Address: [address] Performed By: #### 5 7021-8 ####[facility] LABORATORYCLIA [id number] [address] Platelet mean volume (Bld) [Entitic vol] 9.9 fL Normal 9.0-12.7 [facility] Comment on above: Order Comment: Speci men Type: BLOOD SPECIMENOrdering Facility: [facility] Address: [address] [place], [place] [address] Performed By: #### 5 7021-8 ####[facility] LABORATORYCLIA [id number] [address] Platelets (Bld) [#/Vol] 230 10*3/uL Normal 150-400 [facility] Comment on above: Order Comment: Speci men Type: BLOOD SPECIMENOrdering Facility: [facility] Address: [address] [place], [place] [address] Performed By: #### 5 7021-8 ####[facility] LABORATORYCLIA [id number] [address] [place] RBC (Bld) [#/Vol] 2.97 10*6/uL Low 4.20-6.00 [facility] Comment on above: Order Comment: Speci men Type: BLOOD SPECIMENOrdering Facility: [facility] Address: [address] [place], [place] [address] Performed By: #### 5 7021-8 ####[facility] LABORATORYCLIA [id number] [address] [place] WBC (Bld) [#/Vol] 11.50 10*3/uL High 3.70-11.00 [facility] Comment on above: Order Comment: Speci men Type: BLOOD SPECIMENOrdering Facility: [facility] Address: [address] [place], [place] [address] Performed By: #### 5 7021-8 ####[facility] LABORATORYCLIA [id number] [address] CONSULT PROGon 08-06-2021 CONSULT PROG Normal [facility] Magnesium SerPl-mCncon 08-06 Magnesium [Mass/Vol] 1.9 mg/dL Normal 1.7-2.3 [facility] Comment on above: Order Comment: Speci men Type: BLOOD SPECIMENOrdering Facility: [facility] Address: [address] [place] [address] Performed By: #### 2 4321-2, 2777-1, 08689-9 ####[facility] LABORATORYCLIA [id number] [address] [address] NURSING PROGon 08-06-2021 NURSING PROG Normal [facility] OPERATIVE NOon 08-06-2021 OPERATIVE NO Normal [facility] Phosphate SerPl-mCncon 08-06 Phosphate [Mass/Vol] 4.2 mg/dL Normal 2.7-4.8 [facility] Comment on above: Order Comment: Speci men Type: BLOOD SPECIMENOrdering Facility: [facility] Address: [address] [place] [address] Performed By: #### 2 4321-2, 2777-1, ####[facility] LABORATORYCLIA [id number] [address] ALLIED HEALTHon 08-05-2021 ALLIED HEALTH Normal [facility] ALLIED HEALTH Normal [facility] ANES PRE-OPon 08-05-2021 ANES PRE-OP Normal [facility] BRIEF OP NOTon 08-05-2021 BRIEF OP NOT Normal [facility] Bacteria Spec Resp Culton Bacteria identified Respiratory culture Nom (Unsp spec) CULTURE, RESPIRATORY: Few Normal respiratory chris present ORGANISM ID: 1 Few Proteus species Insignificant colony count. No further workup. GRAM STAIN: No organisms seen Few Polymorphonuclear leukocytes Few Epithelial cells Abnormal [facility] Comment on above: Performed By: #### 3 2355-0 ####[facility] LABORATORYCLIA [id number] [address] [place] Bacteria Ur Culton 2 Bacteria identified Cx Nom (U) CULTURE, URINE: No growth (<1,000 CFU/ml) Normal [facility] Comment on above: Performed By: #### 6 30-4 ####[facility] LABORATORYCLIA [id number] [place] [address] [place] Basic metabolic 2000 panelon 08-05-2021 Anion gap [Moles/Vol] 7 mmol/L Low 9-18 [facility] Comment on above: Order Comment: Speci men Type: BLOOD SPECIMENOrdering Facility: [facility] Address: [address] [place] [address] Performed By: #### 2 4321-2 ####[facility] LABORATORYCLIA [id number] [place] [address] [place] Calcium [Mass/Vol] 9.5 mg/dL Normal 8.5-10.2 [facility] Comment on above: Order Comment: Speci men Type: BLOOD SPECIMENOrdering Facility: [facility] Address: [address] [place] [address] Performed By: #### 2 4321-2 ####[facility] LABORATORYCLIA [id number] [place] [address] [place] Chloride [Moles/Vol] 97 mmol/L Normal 97-105 [facility] Comment on above: Order Comment: Speci men Type: BLOOD SPECIMENOrdering Facility: [facility] Address: [address] [place] [address] Performed By: #### 2 4321-2 ####[facility] LABORATORYCLIA [id number] [place] [address] [place] CO2 [Moles/Vol] 30 mmol/L Normal 22-30 [facility] Comment on above: Order Comment: Speci men Type: BLOOD SPECIMENOrdering Facility: [facility] Address: [address] [place] [address] Performed By: #### 2 4321-2 ####[facility] LABORATORYCLIA [id number] [address] [facility] Creatinine [Mass/Vol] 0.61 mg/dL Low 0.73-1.22 [facility] Comment on above: Order Comment: Johncara feldman Type: BLOOD SPECIMENOrdering Facility: [facility] Address: [address] [address] Performed By: #### 2 4321-2 ####[facility] LABORATORYCLIA [id number] [address] ESTIMATED GLOMERULAR FILTRATION RATE 104 mL/min/1.73m??? Normal >=60 [facility] Comment on above: Order Comment: Shira francia Type: BLOOD SPECIMENOrdering Facility: [facility] Address: [address] [address] Result Comment: Luzmaria mated Glomerular Filtration Rate [...] actual GFR. Performed By: #### 2 4321-2 ####[facility] LABORATORYCLIA [id number] [address] [place] Glucose [Mass/Vol] 124 mg/dL High 74-99 [facility] Comment on above: Order Comment: Johncara feldman Type: BLOOD SPECIMENOrdering Facility: [facility] Address: [address] [address] Result Comment: The [place] [employer] (ADA) provides guidance for cutoff [...] Standards of Medical Care in Diabetes 2016, [place] [employer]. Diabetes Care. 2016.39(Suppl 1). Performed By: #### 2 4321-2 ####[facility] LABORATORYCLIA [id number] [address] STATES [facility] Potassium [Moles/Vol] 4.9 mmol/L Normal 3.7-5.1 [facility] Comment on above: Order Comment: Speci men Type: BLOOD SPECIMENOrdering Facility: [facility] Address: [address] [place] [address] Performed By: #### 2 4321-2 ####[facility] LABORATORYCLIA [id number] [address] Sodium [Moles/Vol] 134 mmol/L Low 136-144 [facility] Comment on above: Order Comment: Speci men Type: BLOOD SPECIMENOrdering Facility: [facility] Address: [address] [place] [address] Performed By: #### 2 4321-2 ####[facility] LABORATORYCLIA [id number] [address] STATES [facility] Urea nitrogen [Mass/Vol] 40 mg/dL High 9-24 [facility] Comment on above: Order Comment: Speci men Type: BLOOD SPECIMENOrdering Facility: [facility] Address: [address] [place] [address] Performed By: #### 2 4321-2 ####[facility] LABORATORYCLIA [id number] [address] [place] CBC W Auto Differential pane l (Bld)on 08-05-2021 Basophils (Bld) [#/Vol] 0.04 10*3/uL Normal <0.11 [facility] Comment on above: Order Comment: Speci men Type: BLOOD SPECIMENOrdering Facility: [facility] Address: [address] [place] [address] Performed By: #### 5 7021-8 ####[facility] LABORATORYCLIA [id number] [address] STATES [facility] Basophils/100 WBC (Bld) 0.3 % Normal [facility] Comment on above: Order Comment: Speci men Type: BLOOD SPECIMENOrdering Facility: [facility] Address: [address] [place] [address] Performed By: #### 5 7021-8 ####[facility] LABORATORYCLIA [id number] [address] Differential cell count method Nom (Bld) Auto Normal [facility] Comment on above: Order Comment: Speci men Type: BLOOD SPECIMENOrdering Facility: [facility] Address: [address] [place] [address] Performed By: #### 5 7021-8 ####[facility] LABORATORYCLIA [id number] [address] [place] Eosinophils (Bld) [#/Vol] 0.42 10*3/uL Normal <0.46 [facility] Comment on above: Order Comment: Speci men Type: BLOOD SPECIMENOrdering Facility: [facility] Address: [address] [place] [address] Performed By: #### 5 7021-8 ####[facility] LABORATORYCLIA [id number] [address] Eosinophils/100 WBC (Bld) 3.6 % Normal [facility] Comment on above: Order Comment: Speci men Type: BLOOD SPECIMENOrdering Facility: [facility] Address: [address] [place] [address] Performed By: #### 5 7021-8 ####[facility] LABORATORYCLIA [id number] [address] [place] Erythrocyte distribution width (RBC) [Ratio] 17.9 % High 11.5-15.0 [facility] Comment on above: Order Comment: Speci men Type: BLOOD SPECIMENOrdering Facility: [facility] Address: [address] [place] [address] Performed By: #### 5 7021-8 ####[facility]ORATORYCLIA [id number] [address] OF [facility] Hematocrit (Bld) [Volume fraction] 30.8 % Low 39.0-51.0 [facility] Comment on above: Order Comment: Speci men Type: BLOOD SPECIMENOrdering Facility: [facility] Address: [address] [place] [address] Performed By: #### 5 7021-8 ####[facility] LABORATORYCLIA [id number] [address] Hemoglobin (Bld) [Mass/Vol] 9.6 g/dL Low 13.0-17.0 [facility] Comment on above: Order Comment: Speci men Type: BLOOD SPECIMENOrdering Facility: [facility] Address: [address] [place] [address] Performed By: #### 5 7021-8 ####[facility] LABORATORYCLIA [id number] [address] IMMATURE GRAN % 0.5 % Normal [facility] Comment on above: Order Comment: Speci men Type: BLOOD SPECIMENOrdering Facility: [facility] Address: [address] [place] [address] Performed By: #### 5 7021-8 ####[facility] LABORATORYCLIA [id number] [address] IMMATURE GRAN ABS 0.06 k/uL Normal <0.10 [facility] Comment on above: Order Comment: Speci men Type: BLOOD SPECIMENOrdering Facility: [facility] Address: [address] [place] [address] Performed By: #### 5 7021-8 ####[facility] LABORATORYCLIA [id number] [address] Lymphocytes (Bld) [#/Vol] 2.17 10*3/uL Normal 1.00-4.00 [facility] Comment on above: Order Comment: Speci men Type: BLOOD SPECIMENOrdering Facility: [facility] Address: [address] [place] [address] Performed By: #### 5 7021-8 ####[facility] LABORATORYCLIA [id number] [address] Lymphocytes/100 WBC (Bld) 18.7 % Normal [facility] Comment on above: Order Comment: Speci men Type: BLOOD SPECIMENOrdering Facility: [facility] Address: [address] [place] [address] Performed By: #### 5 7021-8 ####[facility] LABORATORYCLIA [id number] [address] MCH (RBC) [Entitic mass] 28.9 pg Normal 26.0-34.0 [facility] Comment on above: Order Comment: Speci men Type: BLOOD SPECIMENOrdering Facility: [facility] Address: [address] [place] [address] Performed By: #### 5 7021-8 ####[facility] LABORATORYCLIA [id number] [address] MCHC (RBC) [Mass/Vol] 31.2 g/dL Normal 30.5-36.0 [facility] Comment on above: Order Comment: Speci men Type: BLOOD SPECIMENOrdering Facility: [facility] Address: [address] [place] [address] Performed By: #### 5 7021-8 ####[facility] LABORATORYCLIA [id number] [address] MCV (RBC) [Entitic vol] 92.8 fL Normal 80.0-100.0 [facility] Comment on above: Order Comment: Speci men Type: BLOOD SPECIMENOrdering Facility: [facility] Address: [address] [place] [address] Performed By: #### 5 7021-8 ####[facility] LABORATORYCLIA [id number] [address] Monocytes (Bld) [#/Vol] 0.71 10*3/uL Normal <0.87 [facility] Comment on above: Order Comment: Speci men Type: BLOOD SPECIMENOrdering Facility: [facility] Address: [address] [place] [address] Performed By: #### 5 7021-8 ####[facility] LABORATORYCLIA [id number] [address] STATES [facility] Monocytes/100 WBC (Bld) 6.1 % Normal [facility] Comment on above: Order Comment: Speci men Type: BLOOD SPECIMENOrdering Facility: [facility] Address: [address] [place] [address] Performed By: #### 5 7021-8 ####[facility] LABORATORYCLIA [id number] [address] [place] Neutrophils (Bld) [#/Vol] 8.19 10*3/uL High 1.45-7.50 [facility] Comment on above: Order Comment: Speci men Type: BLOOD SPECIMENOrdering Facility: [facility] Address: [address] [place] [address] Performed By: #### 5 7021-8 ####[facility] LABORATORYCLIA [id number] [address] Neutrophils/100 WBC (Bld) 70.8 % Normal [facility] Comment on above: Order Comment: Speci men Type: BLOOD SPECIMENOrdering Facility: [facility] Address: [address] [place] [address] Performed By: #### 5 7021-8 ####[facility] LABORATORYCLIA [id number] [address] [place] Nucleated RBC (Bld) [#/Vol] 10*3/uL Normal <0.01 [facility] Comment on above: Order Comment: Speci men Type: BLOOD SPECIMENOrdering Facility: [facility] Address: [address] [place] [address] Performed By: #### 5 7021-8 ####[facility] LABORATORYCLIA [id number] [address] [place] Nucleated RBC/100 WBC (Bld) [Ratio] 0.0 /100 WBC Normal [facility] Comment on above: Order Comment: Speci men Type: BLOOD SPECIMENOrdering Facility: [facility] Address: [address] [place] [address] Performed By: #### 5 7021-8 ####[facility] LABORATORYCLIA [id number] [address] [place] Platelet mean volume (Bld) [Entitic vol] 9.6 fL Normal 9.0-12.7 [facility] Comment on above: Order Comment: Speci men Type: BLOOD SPECIMENOrdering Facility: [facility] Address: [address] [place] [address] Performed By: #### 5 7021-8 ####[facility] LABORATORYCLIA [id number] [address] Platelets (Bld) [#/Vol] 339 10*3/uL Normal 150-400 [facility] Comment on above: Order Comment: Speci men Type: BLOOD SPECIMENOrdering Facility: [facility] Address: [address] [place] [address] Performed By: #### 5 7021-8 ####[facility] LABORATORYCLIA [id number] [address] [place] RBC (Bld) [#/Vol] 3.32 10*6/uL Low 4.20-6.00 [facility] Comment on above: Order Comment: Speci men Type: BLOOD SPECIMENOrdering Facility: [facility] Address: [address] [place] [address] Performed By: #### 5 7021-8 ####[facility] LABORATORYCLIA [id number] [address] [place] WBC (Bld) [#/Vol] 11.59 10*3/uL High 3.70-11.00 [facility] Comment on above: Order Comment: Speci men Type: BLOOD SPECIMENOrdering Facility: [facility] Address: [address] [place] [address] Performed By: #### 5 7021-8 ####[facility] LABORATORYCLIA [id number] [address] [place] CT BRAIN WO IVCONon 08-06-[address] BRAIN WO IVCON Normal [facility] Magnesium SerPl-mCncon 08-05 Magnesium [Mass/Vol] 2.2 mg/dL Normal 1.7-2.3 [facility] Comment on above: Order Comment: Speci men Type: BLOOD SPECIMENOrdering Facility: [facility] Address: [address] [place] [address] Performed By: #### 1 9123-9, 2777-1 ####[facility] LABORATORYCLIA [id number] [address] NURSING PROGon 08-05-2021 NURSING PROG Normal [facility] NURSING PROG Normal [facility] NUTRITIONon 08-05-2021 NUTRITION Normal [facility] OPERATIVE NOon 08-05-2021 OPERATIVE NO [facility] Phosphate SerPl-mCncon 08-05 Phosphate [Mass/Vol] 4.6 mg/dL Normal 2.7-4.8 [facility] Comment on above: Order Comment: Speci men Type: BLOOD SPECIMENOrdering Facility: [facility] Address: [address] [place] [address] Performed By: #### 1 9123-9, 2777-1 ####[facility] LABORATORYCLIA [id number] [address] [place] THERAPY NTon 08-05-2021 THERAPY NT Normal [facility] THERAPY NT Normal [facility] Urinalysis complete panel (U )on 08-05-2021 Bilirubin Ql (U) Negative Normal Negative [facility] Comment on above: Order Comment: Speci men Type: URINE SPECIMENOrdering Facility: [facility] Address: [address] [place] [address] Performed By: #### 2 4356-8 ####[facility] LABORATORYCLIA [id number] [address] Clarity (Unsp spec) Clear Normal Clear [facility] Comment on above: Order Comment: Speci men Type: URINE SPECIMENOrdering Facility: [facility] Address: [address] [place] [address] Performed By: #### 2 4356-8 ####[facility] LABORATORYCLIA [id number] [address] Color (U) Light Yellow Normal yellow [facility] Comment on above: Order Comment: Speci men Type: URINE SPECIMENOrdering Facility: [facility] Address: [address] [place] [address] Performed By: #### 2 4356-8 ####[facility] LABORATORYCLIA [id number] [address] Epithelial cells LM.HPF (Urine sed) [#/Area] Few Abnormal None Seen [facility] Comment on above: Order Comment: Speci men Type: URINE SPECIMENOrdering Facility: [facility] Address: [address] [place] [address] Performed By: #### 2 4356-8 ####[facility] LABORATORYCLIA [id number] [address] Glucose Test strip (U) [Mass/Vol] Negative Normal Negative [facility] Comment on above: Order Comment: Speci men Type: URINE SPECIMENOrdering Facility: [facility] Address: [address] [place] [address] Performed By: #### 2 4356-8 ####[facility] LABORATORYCLIA [id number] [address] Hemoglobin Ql (U) Negative Normal Negative [facility] Comment on above: Order Comment: Speci men Type: URINE SPECIMENOrdering Facility: [facility] Address: [address] [place] [address] Performed By: #### 2 4356-8 ####[facility]ORATORYCLIA [id number] [address] [place] [facility] Hyaline casts (Urine sed) [#/Area] 1-3 /LPF Abnormal 0 /LPF [facility] Comment on above: Order Comment: Speci men Type: URINE SPECIMENOrdering Facility: [facility] Address: [address] [place] [address] Performed By: #### 2 4356-8 ####[facility] LABORATORYCLIA [id number] [address] Ketones Ql (U) Negative Normal Negative [facility] Comment on above: Order Comment: Speci men Type: URINE SPECIMENOrdering Facility: [facility] Address: [address] [place] [address] Performed By: #### 2 4356-8 ####[facility] LABORATORYCLIA [id number] [address] Leukocyte esterase Test strip Ql (U) Negative Normal Negative [facility] Comment on above: Order Comment: Speci men Type: URINE SPECIMENOrdering Facility: [facility] Address: [address] [place] [address] Performed By: #### 2 4356-8 ####[facility] LABORATORYCLIA [id number] [address] STATES [facility] Nitrite Ql (U) Negative Normal Negative [facility] Comment on above: Order Comment: Speci men Type: URINE SPECIMENOrdering Facility: [facility] Address: [address] [place] [address] Performed By: #### 2 4356-8 ####[facility] LABORATORYCLIA [id number] [address] STATES [facility] pH (U) 6.0 [pH] Normal 5.0-8.0 [facility] Comment on above: Order Comment: Speci men Type: URINE SPECIMENOrdering Facility: [facility] Address: [address] [address] Performed By: #### 2 4356-8 ####[facility]ORATORYCLIA [id number] [address] Protein (U) [Mass/Vol] Negative Normal Negative [facility] Comment on above: Order Comment: Speci men Type: URINE SPECIMENOrdering Facility: [facility] Address: [address] [place] [address] Performed By: #### 2 4356-8 ####[facility] LABORATORYCLIA [id number] [place] [address] [place] RBC LM.HPF (Urine sed) [#/Area] 0-3 /HPF Normal 0-3 /HPF [facility] Comment on above: Order Comment: Speci men Type: URINE SPECIMENOrdering Facility: [facility] Address: [address] [place] [address] Performed By: #### 2 4356-8 ####[facility] LABORATORYCLIA [id number] [address] Specific gravity (U) [Rel density] 1.015 Normal 1.005-1.030 [facility] Comment on above: Order Comment: Speci men Type: URINE SPECIMENOrdering Facility: [facility] Address: [address] [place] [address] Performed By: #### 2 4356-8 ####[facility] LABORATORYCLIA [id number] [address] Urobilinogen Ql (U) Normal Normal Negative [facility] Comment on above: Order Comment: Speci men Type: URINE SPECIMENOrdering Facility: [facility] Address: [address] [place] [address] Performed By: #### 2 4356-8 ####[facility] LABORATORYCLIA [id number] [address] WBC LM.HPF (Urine sed) [#/Area] 0-5 /HPF Normal 0-5 /HPF [facility] Comment on above: Order Comment: Speci men Type: URINE SPECIMENOrdering Facility: [facility] Address: [address] [place] [address] Performed By: #### 2 4356-8 ####[facility] LABORATORYCLIA [id number] [place] [address] [place] XR ABDOMEN 1V SUPINEon 08-05 XR ABDOMEN 1V SUPINE Normal [facility] XR CHEST 1V FRONTALon 2021 XR CHEST 1V FRONTAL Normal [facility] XR CHEST 1V FRONTAL Normal [facility] XR NECK SOFT TISSUE 2V AP/LA Ton 08-05-2021 XR NECK SOFT TISSUE 2V AP/LAT Normal [facility] XR SKULL 2V AP/LATon 022 XR SKULL 2V AP/LAT Normal [facility] ALLIED HEALTHon 08-04-2021 ALLIED HEALTH Normal [facility] Bacteria Bld Culton 08-05-19 22 Bacteria identified Cx Nom (Bld) CULTURE, BLOOD: No growth 5 days Normal [facility] Comment on above: Performed By: #### 6 00-7 ####[facility] LABORATORYCLIA [id number] [place] [address] [place] Bacteria identified Cx Nom (Bld) CULTURE, BLOOD: No growth 5 days Normal [facility] Comment on above: Performed By: #### 6 00-7 ####[facility] LABORATORYCLIA [id number] [place] [address] [place] CBC W Auto Differential pane l (Bld)on 08-04-2021 Basophils (Bld) [#/Vol] 0.05 10*3/uL Normal <0.11 [facility] Comment on above: Order Comment: Speci men Type: BLOOD SPECIMENOrdering Facility: [facility] Address: [address] [place] [address] Performed By: #### 5 7021-8 ####[facility] LABORATORYCLIA [id number] [address] [place] Basophils/100 WBC (Bld) 0.4 % Normal [facility] Comment on above: Order Comment: Speci men Type: BLOOD SPECIMENOrdering Facility: [facility] Address: [address] [place] [address] Performed By: #### 5 7021-8 ####[facility]ORATORYCLIA [id number] [address] Differential cell count method Nom (Bld) Auto Normal [facility] Comment on above: Order Comment: Speci men Type: BLOOD SPECIMENOrdering Facility: [facility] Address: [address] [place] [address] Performed By: #### 5 7021-8 ####[facility] LABORATORYCLIA [id number] [address] [place] Eosinophils (Bld) [#/Vol] 0.21 10*3/uL Normal <0.46 [facility] Comment on above: Order Comment: Speci men Type: BLOOD SPECIMENOrdering Facility: [facility] Address: [address] [place] [address] Performed By: #### 5 7021-8 ####[facility] LABORATORYCLIA [id number] [address] Eosinophils/100 WBC (Bld) 1.7 % Normal [facility] Comment on above: Order Comment: Speci men Type: BLOOD SPECIMENOrdering Facility: [facility] Address: [address] [place] [address] Performed By: #### 5 7021-8 ####[facility] LABORATORYCLIA [id number] [address] [place] Erythrocyte distribution width (RBC) [Ratio] 18.1 % High 11.5-15.0 [facility] Comment on above: Order Comment: Speci men Type: BLOOD SPECIMENOrdering Facility: [facility] Address: [address] [place] [address] Performed By: #### 5 7021-8 ####[facility] LABORATORYCLIA [id number] [address] [place] Hematocrit (Bld) [Volume fraction] 32.0 % Low 39.0-51.0 [facility] Comment on above: Order Comment: Speci men Type: BLOOD SPECIMENOrdering Facility: [facility] Address: [address] [place] [address] Performed By: #### 5 7021-8 ####[facility] LABORATORYCLIA [id number] [address] [place] Hemoglobin (Bld) [Mass/Vol] 10.0 g/dL Low 13.0-17.0 [facility] Comment on above: Order Comment: Speci men Type: BLOOD SPECIMENOrdering Facility: [facility] Address: [address] [place] [address] Performed By: #### 5 7021-8 ####[facility] LABORATORYCLIA [id number] [address] IMMATURE GRAN % 0.6 % Normal [facility] Comment on above: Order Comment: Speci men Type: BLOOD SPECIMENOrdering Facility: [facility] Address: [address] [place] [address] Performed By: #### 5 7021-8 ####[facility] LABORATORYCLIA [id number] [address] IMMATURE GRAN ABS 0.08 k/uL Normal <0.10 [facility] Comment on above: Order Comment: Speci men Type: BLOOD SPECIMENOrdering Facility: [facility] Address: [address] [place] [address] Performed By: #### 5 7021-8 ####[facility] LABORATORYCLIA [id number] [address] [place] Lymphocytes (Bld) [#/Vol] 2.55 10*3/uL Normal 1.00-4.00 [facility] Comment on above: Order Comment: Speci men Type: BLOOD SPECIMENOrdering Facility: [facility] Address: [address] [place] [address] Performed By: #### 5 7021-8 ####[facility] LABORATORYCLIA [id number] [place] [address] [place] Lymphocytes/100 WBC (Bld) 20.5 % Normal [facility] Comment on above: Order Comment: Speci men Type: BLOOD SPECIMENOrdering Facility: [facility] Address: [address] [place] [address] Performed By: #### 5 7021-8 ####[facility] LABORATORYCLIA [id number] [address] STATES OF [facility] MCH (RBC) [Entitic mass] 28.9 pg Normal 26.0-34.0 [facility] Comment on above: Order Comment: Speci men Type: BLOOD SPECIMENOrdering Facility: [facility] Address: [address] [place] [address] Performed By: #### 5 7021-8 ####[facility] LABORATORYCLIA [id number] [address] MCHC (RBC) [Mass/Vol] 31.3 g/dL Normal 30.5-36.0 [facility] Comment on above: Order Comment: Speci men Type: BLOOD SPECIMENOrdering Facility: [facility] Address: [address] [place] [address] Performed By: #### 5 7021-8 ####[facility] LABORATORYCLIA [id number] [address] MCV (RBC) [Entitic vol] 92.5 fL Normal 80.0-100.0 [facility] Comment on above: Order Comment: Speci men Type: BLOOD SPECIMENOrdering Facility: [facility] Address: [address] [place] [address] Performed By: #### 5 7021-8 ####[facility] LABORATORYCLIA [id number] [address] Monocytes (Bld) [#/Vol] 0.85 10*3/uL Normal <0.87 [facility] Comment on above: Order Comment: Speci men Type: BLOOD SPECIMENOrdering Facility: [facility] Address: [address] [place] [address] Performed By: #### 5 7021-8 ####[facility]ORATORYCLIA [id number] [address] [place] Monocytes/100 WBC (Bld) 6.8 % Normal [facility] Comment on above: Order Comment: Speci men Type: BLOOD SPECIMENOrdering Facility: [facility] Address: [address] [place] [address] Performed By: #### 5 7021-8 ####[facility] LABORATORYCLIA [id number] [address] [place] Neutrophils (Bld) [#/Vol] 8.68 10*3/uL High 1.45-7.50 [facility] Comment on above: Order Comment: Speci men Type: BLOOD SPECIMENOrdering Facility: [facility] Address: [address] [place] [address] Performed By: #### 5 7021-8 ####[facility] LABORATORYCLIA [id number] [address] Neutrophils/100 WBC (Bld) 70.0 % Normal [facility] Comment on above: Order Comment: Speci men Type: BLOOD SPECIMENOrdering Facility: [facility] Address: [address] [place] [address] Performed By: #### 5 7021-8 ####[facility] LABORATORYCLIA [id number] [address] [place] Nucleated RBC (Bld) [#/Vol] 10*3/uL Normal <0.01 [facility] Comment on above: Order Comment: Speci men Type: BLOOD SPECIMENOrdering Facility: [facility] Address: [address] [place] [address] Performed By: #### 5 7021-8 ####[facility] LABORATORYCLIA [id number] [address] Nucleated RBC/100 WBC (Bld) [Ratio] 0.0 /100 WBC Normal [facility] Comment on above: Order Comment: Speci men Type: BLOOD SPECIMENOrdering Facility: [facility] Address: [address] [place], [place] [address] Performed By: #### 5 7021-8 ####[facility] LABORATORYCLIA [id number] [address] [place] Platelet mean volume (Bld) [Entitic vol] 10.0 fL Normal 9.0-12.7 [facility] Comment on above: Order Comment: Speci men Type: BLOOD SPECIMENOrdering Facility: [facility] Address: [address] [place] [address] Performed By: #### 5 7021-8 ####[facility] LABORATORYCLIA [id number] [address] [place] Platelets (Bld) [#/Vol] 393 10*3/uL Normal 150-400 [facility] Comment on above: Order Comment: Speci men Type: BLOOD SPECIMENOrdering Facility: [facility] Address: [address] [place] [address] Performed By: #### 5 7021-8 ####[facility] LABORATORYCLIA [id number] [place] [address] [place] RBC (Bld) [#/Vol] 3.46 10*6/uL Low 4.20-6.00 [facility] Comment on above: Order Comment: Speci men Type: BLOOD SPECIMENOrdering Facility: [facility] Address: [address] [place], [place] [address] Performed By: #### 5 7021-8 ####[facility] LABORATORYCLIA [id number] [address] [place] WBC (Bld) [#/Vol] 12.42 10*3/uL High 3.70-11.00 [facility] Comment on above: Order Comment: Speci men Type: BLOOD SPECIMENOrdering Facility: [facility] Address: [address] [place] [address] Performed By: #### 5 7021-8 ####[facility] LABORATORYCLIA [id number] [address] BRAIN WO IVCONon 08-05-19 CT BRAIN WO IVCON Normal [facility] Lactate (Bld) [Moles/Vol]on 08-04-2021 Lactate [Moles/Vol] 1.4 mmol/L Normal 0.5-2.2 [facility] Comment on above: Order Comment: Speci men Type: BLOOD SPECIMENOrdering Facility: [facility] Address: [address] [place] [address] Performed By: #### 3 2693-4 ####[facility] LABORATORYCLIA [id number] [address] PROCALCITONIN (LAB)on 2021 Procalcitonin [Mass/Vol] 0.08 ng/mL Normal <0.09 [facility] Comment on above: Order Comment: Speci men Type: BLOOD SPECIMENOrdering Facility: [facility] Address: [address] [place] [address] Result Comment: For a guided interpretation of test results, please visit the Change in Procalcitonin Calculator, [email or web address]. Performed By: #### P ROCAL ####[facility] LABORATORYCLIA [id number] [address] Prealbumin [Mass/Vol]on 07-07 Prealbumin Nephelometry [Mass/Vol] 35 mg/dL Normal 17-36 [facility] Comment on above: Order Comment: Speci [facility] Type: BLOOD SPECIMENOrdering Facility: [facility] Address: [address] [place] [address] Performed By: #### 1 4338-8 ####[facility] LABORATORYCLIA [id number] [address] OF [facility] SARS-CoV-2 RNA Resp Ql MEGAN+p robeon 08-04-2021 SARS-CoV-2 (COVID-19) RNA MEGAN+probe Ql (Resp) COVID 19 RESULT: SARS-CoV-2 (Agent of COVID-19) Not Detected by RT-PCR or equivalent method. This test has been authorized by FDA under an Emergency Use Authorization (EUA). Normal [facility] Comment on above: Performed By: #### 9 4500-6 ####[facility] LABORATORYCLIA [id number] [address] TYPE AND SCREENon 08-04-2021 ABO O Normal [facility] Comment on above: Order Comment: Speci men Type: BLOOD SPECIMENOrdering Facility: [facility] Address: [address] [place] [address] Performed By: #### T SCR ####[facility] BLOOD BANKCLIA [id number] [address] HISTORICAL AB SCR STATUS Negative [facility] Comment on above: Order Comment: Speci men Type: BLOOD SPECIMENOrdering Facility: [facility] Address: [address] [place] [address] Performed By: #### T SCR ####[facility] BLOOD BANKCLIA [id number] [address] Rh Nom (Bld) Positive Normal [facility] Comment on above: Order Comment: Speci men Type: BLOOD SPECIMENOrdering Facility: [facility] Address: [address] [place] [address] Performed By: #### T SCR ####[facility] BLOOD BANKCLIA [id number] [address] TYPE AND SCREEN EXPIRATION 08/07/2021 23:59 Normal [facility] Comment on above: Order Comment: Speci men Type: BLOOD SPECIMENOrdering Facility: [facility] Address: [address] [place] [address] Performed By: #### T SCR ####[facility] BLOOD BANKCLIA [id number] [address] aPTT PPPon 08-04-2021 aPTT Coag (PPP) [Time] 51.8 s High 23.0-32.4 [facility] Comment on above: Order Comment: Speci men Type: BLOOD SPECIMENOrdering Facility: [facility] Address: [address] [place] [address] Performed By: #### 1 4979-9 ####[facility] LABORATORYCLIA [id number] [place] [address] [place] Basic metabolic 2000 panelon 08-03-2021 Anion gap [Moles/Vol] 9 mmol/L Normal 9-18 [facility] Comment on above: Order Comment: Speci men Type: BLOOD SPECIMENOrdering Facility: [facility] Address: [address] [place] [address] Performed By: #### 2 4321-2, , 2776-05 ####[facility] LABORATORYCLIA [id number] [place] [address] [place] Calcium [Mass/Vol] 9.3 mg/dL Normal 8.5-10.2 [facility] Comment on above: Order Comment: Speci men Type: BLOOD SPECIMENOrdering Facility: [facility] Address: [address] [place] [address] Performed By: #### 2 4321-2, , 2776-05 ####[facility] LABORATORYCLIA [id number] [place] [address] [place] Chloride [Moles/Vol] 97 mmol/L Normal 97-105 [facility] Comment on above: Order Comment: Speci men Type: BLOOD SPECIMENOrdering Facility: [facility] Address: [address] [place] [address] Performed By: #### 2 4321-2, , 2776-05 ####[facility] LABORATORYCLIA [id number] [place] [address] [place] CO2 [Moles/Vol] 27 mmol/L Normal 22-30 [facility] Comment on above: Order Comment: Speci men Type: BLOOD SPECIMENOrdering Facility: [facility] Address: [address] [place] [address] Performed By: #### 2 4321-2, 52600-7, 2776-05 ####[facility]OSPITALCLIA [id number] [place] [address] [place] Creatinine [Mass/Vol] 0.63 mg/dL Low 0.73-1.22 [facility] Comment on above: Order Comment: Speccara feldman Type: BLOOD SPECIMENOrdering Facility: [facility] Address: [address] [place], [place] [id number] Performed By: #### 2 4321-2, , 2776-05 ####[facility]OSPITALCLIA [id number] [place] [address] [facility] [place] ESTIMATED GLOMERULAR FILTRATION RATE 103 mL/min/1.73m??? Normal >=60 [facility] Comment on above: Order Comment: Shira feldman Type: BLOOD SPECIMENOrdering Facility: [facility] Address: [address] [place], [place] [address] Result Comment: Luzmaria mated Glomerular Filtration Rate [...] Performed By: #### 2 4321-2, , 2776-05 ####[facility] [id number] [place] [address] [place] Glucose [Mass/Vol] 136 mg/dL High 74-99 [facility] Comment on above: Order Comment: Speccara francia Type: BLOOD SPECIMENOrdering Facility: [facility] Address: [address] [id number] Result Comment: The [place] [employer] (ADA) provides guidance for cutoff [...] Standards of Medical Care in Diabetes 2016, [place] [employer]. Diabetes Care. 2016.39(Suppl 1). Performed By: #### 2 4321-2, , 2776-05 ####[facility] LABORATORYCLIA [id number] [place] [address] [place] Potassium [Moles/Vol] 4.1 mmol/L Normal 3.7-5.1 [facility] Comment on above: Order Comment: Shira feldman Type: BLOOD SPECIMENOrdering Facility: [facility] Address: [address] [place] [address] Performed By: #### 2 4321-2, , 2776-05 ####[facility]PITALCLIA [id number] [address] STATES [facility] Sodium [Moles/Vol] 133 mmol/L Low 136-144 [facility] Comment on above: Order Comment: Shira feldman Type: BLOOD SPECIMENOrdering Facility: [facility] Address: [address] [place] [address] Performed By: #### 2 4321-2, , 2776-05 ####[facility] LABORATORYCLIA [id number] [place] [address] [place] Urea nitrogen [Mass/Vol] 40 mg/dL High 9-24 [facility] Comment on above: Order Comment: Shira feldman Type: BLOOD SPECIMENOrdering Facility: [facility] Address: [address] [place] [address] Performed By: #### 2 4321-2, , 2776-05 ####[facility] LABORATORYCLIA [id number] [address] [place] CASE MANAGEMon 08-03-2021 CASE MANAGEM Normal [facility] CBC W Auto Differential pane l (Bld)on 08-03-2021 Basophils (Bld) [#/Vol] 0.06 10*3/uL Normal <0.11 [facility] Comment on above: Order Comment: Speci men Type: BLOOD SPECIMENOrdering Facility: [facility] Address: [address] [place] [address] Performed By: #### 5 7021-8 ####[facility] LABORATORYCLIA [id number] [address] [place] Basophils/100 WBC (Bld) 0.5 % Normal [facility] Comment on above: Order Comment: Speci men Type: BLOOD SPECIMENOrdering Facility: [facility] Address: [address] [place] [address] Performed By: #### 5 7021-8 ####[facility] LABORATORYCLIA [id number] [address] [place] Differential cell count method Nom (Bld) Auto Normal [facility] Comment on above: Order Comment: Speci men Type: BLOOD SPECIMENOrdering Facility: [facility] Address: [address] [place] [address] Performed By: #### 5 7021-8 ####[facility]ORATORYCLIA [id number] [address] [place] Eosinophils (Bld) [#/Vol] 0.23 10*3/uL Normal <0.46 [facility] Comment on above: Order Comment: Speci men Type: BLOOD SPECIMENOrdering Facility: [facility] Address: [address] [place] [address] Performed By: #### 5 7021-8 ####[facility]ORATORYCLIA [id number] [address] [place] Eosinophils/100 WBC (Bld) 1.8 % Normal [facility] Comment on above: Order Comment: Speci men Type: BLOOD SPECIMENOrdering Facility: [facility] Address: [address] [place] [address] Performed By: #### 5 7021-8 ####[facility]ORATORYCLIA [id number] [address] Erythrocyte distribution width (RBC) [Ratio] 17.6 % High 11.5-15.0 [facility] Comment on above: Order Comment: Speci men Type: BLOOD SPECIMENOrdering Facility: [facility] Address: [address] [place] [address] Performed By: #### 5 7021-8 ####[facility] LABORATORYCLIA [id number] [address] Hematocrit (Bld) [Volume fraction] 30.7 % Low 39.0-51.0 [facility] Comment on above: Order Comment: Speci men Type: BLOOD SPECIMENOrdering Facility: [facility] Address: [address] [place] [address] Performed By: #### 5 7021-8 ####[facility] LABORATORYCLIA [id number] [address] STATES [facility] Hemoglobin (Bld) [Mass/Vol] 9.3 g/dL Low 13.0-17.0 [facility] Comment on above: Order Comment: Speci men Type: BLOOD SPECIMENOrdering Facility: [facility] Address: [address] [place] [address] Performed By: #### 5 7021-8 ####[facility] LABORATORYCLIA [id number] [address] IMMATURE GRAN % 0.6 % Normal [facility] Comment on above: Order Comment: Speci men Type: BLOOD SPECIMENOrdering Facility: [facility] Address: [address] [place] [address] Performed By: #### 5 7021-8 ####[facility] LABORATORYCLIA [id number] [address] IMMATURE GRAN ABS 0.08 k/uL Normal <0.10 [facility] Comment on above: Order Comment: Speci men Type: BLOOD SPECIMENOrdering Facility: [facility] Address: [address] [place] [address] Performed By: #### 5 7021-8 ####[facility] LABORATORYCLIA [id number] [address] OF [facility] Lymphocytes (Bld) [#/Vol] 2.45 10*3/uL Normal 1.00-4.00 [facility] Comment on above: Order Comment: Speci men Type: BLOOD SPECIMENOrdering Facility: [facility] Address: [address] [place] [address] Performed By: #### 5 7021-8 ####[facility] LABORATORYCLIA [id number] [address] Lymphocytes/100 WBC (Bld) 19.7 % Normal [facility] Comment on above: Order Comment: Speci men Type: BLOOD SPECIMENOrdering Facility: [facility] Address: [address] [place] [address] Performed By: #### 5 7021-8 ####[facility] LABORATORYCLIA [id number] [address] STATES [place] [facility] MCH (RBC) [Entitic mass] 28.2 pg Normal 26.0-34.0 [facility] Comment on above: Order Comment: Speci men Type: BLOOD SPECIMENOrdering Facility: [facility] Address: [address] [place] [address] Performed By: #### 5 7021-8 ####[facility] LABORATORYCLIA [id number] [address] [place] MCHC (RBC) [Mass/Vol] 30.3 g/dL Low 30.5-36.0 [facility] Comment on above: Order Comment: Speci men Type: BLOOD SPECIMENOrdering Facility: [facility] Address: [address] [place] [address] Performed By: #### 5 7021-8 ####[facility] LABORATORYCLIA [id number] [address] [place] MCV (RBC) [Entitic vol] 93.0 fL Normal 80.0-100.0 [facility] Comment on above: Order Comment: Speci men Type: BLOOD SPECIMENOrdering Facility: [facility] Address: [address] [place] [address] Performed By: #### 5 7021-8 ####[facility] LABORATORYCLIA [id number] [place] [address] [place] Monocytes (Bld) [#/Vol] 0.72 10*3/uL Normal <0.87 [facility] Comment on above: Order Comment: Speci men Type: BLOOD SPECIMENOrdering Facility: [facility] Address: [address] [place] [address] Performed By: #### 5 7021-8 ####[facility] LABORATORYCLIA [id number] [address] [place] Monocytes/100 WBC (Bld) 5.8 % Normal [facility] Comment on above: Order Comment: Speci men Type: BLOOD SPECIMENOrdering Facility: [facility] Address: [address] [place] [address] Performed By: #### 5 7021-8 ####[facility] LABORATORYCLIA [id number] [place] [address] [place] Neutrophils (Bld) [#/Vol] 8.92 10*3/uL High 1.45-7.50 [facility] Comment on above: Order Comment: Speci men Type: BLOOD SPECIMENOrdering Facility: [facility] Address: [address] [place] [address] Performed By: #### 5 7021-8 ####[facility] LABORATORYCLIA [id number] [place] [address] [place] Neutrophils/100 WBC (Bld) 71.6 % Normal [facility] Comment on above: Order Comment: Speci men Type: BLOOD SPECIMENOrdering Facility: [facility] Address: [address] [place] [address] Performed By: #### 5 7021-8 ####[facility] LABORATORYCLIA [id number] [address] [place] Nucleated RBC (Bld) [#/Vol] 10*3/uL Normal <0.01 [facility] Comment on above: Order Comment: Speci men Type: BLOOD SPECIMENOrdering Facility: [facility] Address: [address] [place] [address] Performed By: #### 5 7021-8 ####[facility] LABORATORYCLIA [id number] [address] [place] Nucleated RBC/100 WBC (Bld) [Ratio] 0.0 /100 WBC Normal [facility] Comment on above: Order Comment: Speci men Type: BLOOD SPECIMENOrdering Facility: [facility] Address: [address] [place] [address] Performed By: #### 5 7021-8 ####[facility] LABORATORYCLIA [id number] [address] [place] Platelet mean volume (Bld) [Entitic vol] 10.2 fL Normal 9.0-12.7 [facility] Comment on above: Order Comment: Speci men Type: BLOOD SPECIMENOrdering Facility: [facility] Address: [address] [place] [address] Performed By: #### 5 7021-8 ####[facility] LABORATORYCLIA [id number] [address] [place] Platelets (Bld) [#/Vol] 352 10*3/uL Normal 150-400 [facility] Comment on above: Order Comment: Speci men Type: BLOOD SPECIMENOrdering Facility: [facility] Address: [address] [place] [address] Performed By: #### 5 7021-8 ####[facility] LABORATORYCLIA [id number] [address] [place] RBC (Bld) [#/Vol] 3.30 10*6/uL Low 4.20-6.00 [facility] Comment on above: Order Comment: Speci men Type: BLOOD SPECIMENOrdering Facility: [facility] Address: [address] [place] [address] Performed By: #### 5 7021-8 ####[facility] LABORATORYCLIA [id number] [place] [address] [place] WBC (Bld) [#/Vol] 12.46 10*3/uL High 3.70-11.00 [facility] Comment on above: Order Comment: Speci men Type: BLOOD SPECIMENOrdering Facility: [facility] Address: [address] [place] [address] Performed By: #### 5 7021-8 ####[facility] LABORATORYCLIA [id number] [address] CONSULT PROGon 08-03-2021 CONSULT PROG Normal [facility] Magnesium SerPl-mCncon 08-03 Magnesium [Mass/Vol] 2.2 mg/dL Normal 1.7-2.3 [facility] Comment on above: Order Comment: Speci men Type: BLOOD SPECIMENOrdering Facility: [facility] Address: [address] [place] [address] Performed By: #### 2 4321-2, , 2776-05 ####[facility] LABORATORYCLIA [id number] [address] [place] NURSING PROGon 08-03-2021 NURSING PROG Normal [facility] Phosphate SerPl-mCncon 08-03 Phosphate [Mass/Vol] 4.2 mg/dL Normal 2.7-4.8 [facility] Comment on above: Order Comment: Speci men Type: BLOOD SPECIMENOrdering Facility: [facility] Address: [address] [place] [address] Performed By: #### 2 4321-2, 90663-8, 2777- ####[facility] LABORATORYCLIA [id number] [address] [place] aPTT PPPon 08-03-2021 aPTT Coag (PPP) [Time] 50.0 s High 23.0-32.4 [facility] Comment on above: Order Comment: Speci men Type: BLOOD SPECIMENOrdering Facility: [facility] Address: [address] [place] [address] Performed By: #### 1 4979-9 ####[facility] LABORATORYCLIA [id number] [place] [address] [place] CBC W Auto Differential pane l (Bld)on 08-02-2021 Basophils (Bld) [#/Vol] 10*3/uL Normal <0.11 [facility] Comment on above: Order Comment: Speci men Type: BLOOD SPECIMENOrdering Facility: [facility] Address: [address] [place] [address] Performed By: #### 5 7021-8 ####[facility] LABORATORYCLIA [id number] [address] [place] Basophils/100 WBC (Bld) 0.2 % Normal [facility] Comment on above: Order Comment: Speci men Type: BLOOD SPECIMENOrdering Facility: [facility] Address: [address] [place] [address] Performed By: #### 5 7021-8 ####[facility] LABORATORYCLIA [id number] [address] Differential cell count method Nom (Bld) Auto Normal [facility] Comment on above: Order Comment: Speci men Type: BLOOD SPECIMENOrdering Facility: [facility] Address: [address] [place] [address] Performed By: #### 5 7021-8 ####[facility] LABORATORYCLIA [id number] [place] [address] [place] Eosinophils (Bld) [#/Vol] 10*3/uL Normal <0.46 [facility] Comment on above: Order Comment: Speci men Type: BLOOD SPECIMENOrdering Facility: [facility] Address: [address] [place] [address] Performed By: #### 5 7021-8 ####[facility]ORATORYCLIA [id number] [address] STATES [facility] Eosinophils/100 WBC (Bld) 0.0 % Normal [facility] Comment on above: Order Comment: Speci men Type: BLOOD SPECIMENOrdering Facility: [facility] Address: [address] [place] [address] Performed By: #### 5 7021-8 ####[facility] LABORATORYCLIA [id number] [address] [place] Erythrocyte distribution width (RBC) [Ratio] 17.3 % High 11.5-15.0 [facility] Comment on above: Order Comment: Speci men Type: BLOOD SPECIMENOrdering Facility: [facility] Address: [address] [place] [address] Performed By: #### 5 7021-8 ####[facility] LABORATORYCLIA [id number] [address] Hematocrit (Bld) [Volume fraction] 30.8 % Low 39.0-51.0 [facility] Comment on above: Order Comment: Speci men Type: BLOOD SPECIMENOrdering Facility: [facility] Address: [address] [place] [address] Performed By: #### 5 7021-8 ####[facility] LABORATORYCLIA [id number] [address] [place] Hemoglobin (Bld) [Mass/Vol] 9.7 g/dL Low 13.0-17.0 [facility] Comment on above: Order Comment: Speci men Type: BLOOD SPECIMENOrdering Facility: [facility] Address: [address] [place] [address] Performed By: #### 5 7021-8 ####[facility] LABORATORYCLIA [id number] [address] IMMATURE GRAN % 0.5 % Normal [facility] Comment on above: Order Comment: Speci men Type: BLOOD SPECIMENOrdering Facility: [facility] Address: [address] [place] [address] Performed By: #### 5 7021-8 ####[facility] LABORATORYCLIA [id number] [address] IMMATURE GRAN ABS 0.07 k/uL Normal <0.10 [facility] Comment on above: Order Comment: Speci men Type: BLOOD SPECIMENOrdering Facility: [facility] Address: [address] [place] [address] Performed By: #### 5 7021-8 ####[facility] LABORATORYCLIA [id number] [address] Lymphocytes (Bld) [#/Vol] 1.60 10*3/uL Normal 1.00-4.00 [facility] Comment on above: Order Comment: Speci men Type: BLOOD SPECIMENOrdering Facility: [facility] Address: [address] [place] [address] Performed By: #### 5 7021-8 ####[facility] LABORATORYCLIA [id number] [address] Lymphocytes/100 WBC (Bld) 12.1 % Normal [facility] Comment on above: Order Comment: Speci men Type: BLOOD SPECIMENOrdering Facility: [facility] Address: [address] [place] [address] Performed By: #### 5 7021-8 ####[facility] LABORATORYCLIA [id number] [address] MCH (RBC) [Entitic mass] 28.6 pg Normal 26.0-34.0 [facility] Comment on above: Order Comment: Speci men Type: BLOOD SPECIMENOrdering Facility: [facility] Address: [address] [place] [address] Performed By: #### 5 7021-8 ####[facility] LABORATORYCLIA [id number] [address] MCHC (RBC) [Mass/Vol] 31.5 g/dL Normal 30.5-36.0 [facility] Comment on above: Order Comment: Speci men Type: BLOOD SPECIMENOrdering Facility: [facility] Address: [address] [place] [address] Performed By: #### 5 7021-8 ####[facility] LABORATORYCLIA [id number] [address] MCV (RBC) [Entitic vol] 90.9 fL Normal 80.0-100.0 [facility] Comment on above: Order Comment: Speci men Type: BLOOD SPECIMENOrdering Facility: [facility] Address: [address] [place] [address] Performed By: #### 5 7021-8 ####[facility] LABORATORYCLIA [id number] [address] STATES [facility] Monocytes (Bld) [#/Vol] 0.39 10*3/uL Normal <0.87 [facility] Comment on above: Order Comment: Speci men Type: BLOOD SPECIMENOrdering Facility: [facility] Address: [address] [place] [address] Performed By: #### 5 7021-8 ####[facility] LABORATORYCLIA [id number] [address] Monocytes/100 WBC (Bld) 3.0 % Normal [facility] Comment on above: Order Comment: Speci men Type: BLOOD SPECIMENOrdering Facility: [facility] Address: [address] [place] [address] Performed By: #### 5 7021-8 ####[facility] LABORATORYCLIA [id number] [address] Neutrophils (Bld) [#/Vol] 11.09 10*3/uL High 1.45-7.50 [facility] Comment on above: Order Comment: Speci men Type: BLOOD SPECIMENOrdering Facility: [facility] Address: [address] [place] [address] Performed By: #### 5 7021-8 ####[facility] LABORATORYCLIA [id number] [address] [place] Neutrophils/100 WBC (Bld) 84.2 % Normal [facility] Comment on above: Order Comment: Speci men Type: BLOOD SPECIMENOrdering Facility: [facility] Address: [address] [place] [address] Performed By: #### 5 7021-8 ####[facility] LABORATORYCLIA [id number] [address] [place] Nucleated RBC (Bld) [#/Vol] 10*3/uL Normal <0.01 [facility] Comment on above: Order Comment: Speci men Type: BLOOD SPECIMENOrdering Facility: [facility] Address: [address] [place] [address] Performed By: #### 5 7021-8 ####[facility] LABORATORYCLIA [id number] [address] Nucleated RBC/100 WBC (Bld) [Ratio] 0.0 /100 WBC Normal [facility] Comment on above: Order Comment: Speci men Type: BLOOD SPECIMENOrdering Facility: [facility] Address: [address] [place] [address] Performed By: #### 5 7021-8 ####[facility] LABORATORYCLIA [id number] [address] [place] Platelet mean volume (Bld) [Entitic vol] 10.0 fL Normal 9.0-12.7 [facility] Comment on above: Order Comment: Speci men Type: BLOOD SPECIMENOrdering Facility: [facility] Address: [address] Performed By: #### 5 7021-8 ####[facility] LABORATORYCLIA [id number] [address] [place] Platelets (Bld) [#/Vol] 358 10*3/uL Normal 150-400 [facility] Comment on above: Order Comment: Speci men Type: BLOOD SPECIMENOrdering Facility: [facility] Address: [address] [place], [place] [address] Performed By: #### 5 7021-8 ####[facility] LABORATORYCLIA [id number] [address] RBC (Bld) [#/Vol] 3.39 10*6/uL Low 4.20-6.00 [facility] Comment on above: Order Comment: Speci men Type: BLOOD SPECIMENOrdering Facility: [facility] Address: [address] [place] [address] Performed By: #### 5 7021-8 ####[facility] LABORATORYCLIA [id number] [address] WBC (Bld) [#/Vol] 13.17 10*3/uL High 3.70-11.00 [facility] Comment on above: Order Comment: Speci men Type: BLOOD SPECIMENOrdering Facility: [facility] Address: [address] [place] [address] Performed By: #### 5 7021-8 ####[facility] LABORATORYCLIA [id number] [address] NURSING PROGon 08-02-2021 NURSING PROG Normal [facility] THERAPY NTon 08-02-2021 THERAPY NT Normal [facility] aPTT PPPon 08-02-2021 aPTT Coag (PPP) [Time] 54.9 s High 23.0-32.4 [facility] Comment on above: Order Comment: Speci men Type: BLOOD SPECIMENOrdering Facility: [facility] Address: [address] [place] [address] Performed By: #### 1 4979-9 ####[facility] LABORATORYCLIA [id number] [address] [facility] ALLIED HEALTHon 08-01-2021 ALLIED HEALTH Normal [facility] ALLIED HEALTH Normal [facility] Basic metabolic 2000 panelon 08-01-2021 Anion gap [Moles/Vol] 12 mmol/L Normal 9-18 [facility] Comment on above: Order Comment: Speci men Type: BLOOD SPECIMENOrdering Facility: [facility] Address: [address] [place] [address] Performed By: #### 2 4321-2, 59008-2, 57545-0, 2777-1 ####[facility] LABORATORYCLIA [id number] [place] [address] [place] Calcium [Mass/Vol] 9.1 mg/dL Normal 8.5-10.2 [facility] Comment on above: Order Comment: Speci men Type: BLOOD SPECIMENOrdering Facility: [facility] Address: [address] [place] [address] Performed By: #### 2 4321-2, 01623-0, 28489-9, 2777-1 ####[facility] LABORATORYCLIA [id number] [place] [address] [place] Chloride [Moles/Vol] 96 mmol/L Low 97-105 [facility] Comment on above: Order Comment: Speci men Type: BLOOD SPECIMENOrdering Facility: [facility] Address: [address] [place] [address] Performed By: #### 2 4321-2, 10454-8, 99569-1, 2777-1 ####[facility] LABORATORYCLIA [id number] [place] [address] [place] CO2 [Moles/Vol] 27 mmol/L Normal 22-30 [facility] Comment on above: Order Comment: Speci men Type: BLOOD SPECIMENOrdering Facility: [facility] Address: [address] [place] [address] Performed By: #### 2 4321-2, 31812-9, 47304-3, 2777-1 ####[facility] LABORATORYCLIA [id number] [place] [address] [place] Creatinine [Mass/Vol] 0.64 mg/dL Low 0.73-1.22 [facility] Comment on above: Order Comment: Speci men Type: BLOOD SPECIMENOrdering Facility: [facility] Address: [address] [place] [address] Performed By: #### 2 4321-2, 18219-3, 35321-1, 2777-1 ####[facility] LABORATORYCLIA [id number] [place] [id number] [facility] ESTIMATED GLOMERULAR FILTRATION RATE 102 mL/min/1.73m??? Normal >=60 [facility] Comment on above: Order Comment: Shira francia Type: BLOOD SPECIMENOrdering Facility: [facility] Address: [address] [place] [address] Result Comment: Luzmaria mated Glomerular Filtration Rate [...] actual GFR. Performed By: #### 2 4321-2, 84510-8, 42477-0, 2777-1 ####[facility] [id number] [address] [place] Glucose [Mass/Vol] 122 mg/dL High 74-99 [facility] Comment on above: Order Comment: Shira feldman Type: BLOOD SPECIMENOrdering Facility: [facility] Address: [address] [place] [address] Result Comment: The [place] [employer] (ADA) provides guidance for cutoff [...] Standards of Medical Care in Diabetes 2016, [place] [employer]. Diabetes Care. 2016.39(Suppl 1). Performed By: #### 2 4321-2, 54510-8, 12623-7, 2777- ####[facility] LABORATORYCLIA [id number] [place] [address] [place] Potassium [Moles/Vol] 4.2 mmol/L Normal 3.7-5.1 [facility] Comment on above: Order Comment: Speci men Type: BLOOD SPECIMENOrdering Facility: [facility] Address: [address] [place] [address] Performed By: #### 2 4321-2, 73041-3, 96001-3, 2777-1 ####[facility] LABORATORYCLIA [id number] [place] [address] [place] Sodium [Moles/Vol] 135 mmol/L Low 136-144 [facility] Comment on above: Order Comment: Speci men Type: BLOOD SPECIMENOrdering Facility: [facility] Address: [address] [place] [address] Performed By: #### 2 4321-2, 27584-5, 82077-6, 2777- ####[facility] LABORATORYCLIA [id number] [place] [address] [place] Urea nitrogen [Mass/Vol] 36 mg/dL High 9-24 [facility] Comment on above: Order Comment: Speci men Type: BLOOD SPECIMENOrdering Facility: [facility] Address: [address] [place] [address] Performed By: #### 2 4321-2, 03360-8, 63065-6, 2777-1 ####[facility] LABORATORYCLIA [id number] [place] [address] [place] CASE MANAGEMon 08-01-2021 CASE MANAGEM Normal [facility] CBC W Auto Differential pane l (Bld)on 08-01-2021 Basophils (Bld) [#/Vol] 0.04 10*3/uL Normal <0.11 [facility] Comment on above: Order Comment: Speci men Type: BLOOD SPECIMENOrdering Facility: [facility] Address: [address] [place] [address] Performed By: #### 5 7021-8 ####[facility]ORATORYCLIA [id number] [address] STATES [facility] Basophils/100 WBC (Bld) 0.3 % Normal [facility] Comment on above: Order Comment: Speci men Type: BLOOD SPECIMENOrdering Facility: [facility] Address: [address] [place] [address] Performed By: #### 5 7021-8 ####[facility]ORATORYCLIA [id number] [address] [place] Differential cell count method Nom (Bld) Auto Normal [facility] Comment on above: Order Comment: Speci men Type: BLOOD SPECIMENOrdering Facility: [facility] Address: [address] [place] [address] Performed By: #### 5 7021-8 ####[facility]ORATORYCLIA [id number] [address] [place] Eosinophils (Bld) [#/Vol] 0.37 10*3/uL Normal <0.46 [facility] Comment on above: Order Comment: Speci men Type: BLOOD SPECIMENOrdering Facility: [facility] Address: [address] [place] [address] Performed By: #### 5 7021-8 ####[facility]ORATORYCLIA [id number] [address] Eosinophils/100 WBC (Bld) 3.1 % Normal [facility] Comment on above: Order Comment: Speci men Type: BLOOD SPECIMENOrdering Facility: [facility] Address: [address] [place] [address] Performed By: #### 5 7021-8 ####[facility]ATORYCLIA [id number] [address] [place] Erythrocyte distribution width (RBC) [Ratio] 17.5 % High 11.5-15.0 [facility] Comment on above: Order Comment: Speci men Type: BLOOD SPECIMENOrdering Facility: [facility] Address: [address] [place] [address] Performed By: #### 5 7021-8 ####[facility] LABORATORYCLIA [id number] [address] Hematocrit (Bld) [Volume fraction] 30.1 % Low 39.0-51.0 [facility] Comment on above: Order Comment: Speci men Type: BLOOD SPECIMENOrdering Facility: [facility] Address: [address] [place] [address] Performed By: #### 5 7021-8 ####[facility] LABORATORYCLIA [id number] [address] Hemoglobin (Bld) [Mass/Vol] 9.1 g/dL Low 13.0-17.0 [facility] Comment on above: Order Comment: Speci men Type: BLOOD SPECIMENOrdering Facility: [facility] Address: [address] [place] [address] Performed By: #### 5 7021-8 ####[facility] LABORATORYCLIA [id number] [address] IMMATURE GRAN % 0.6 % Normal [facility] Comment on above: Order Comment: Speci men Type: BLOOD SPECIMENOrdering Facility: [facility] Address: [address] [place] [address] Performed By: #### 5 7021-8 ####[facility] LABORATORYCLIA [id number] [address] IMMATURE GRAN ABS 0.07 k/uL Normal <0.10 [facility] Comment on above: Order Comment: Speci men Type: BLOOD SPECIMENOrdering Facility: [facility] Address: [address] [place] [address] Performed By: #### 5 7021-8 ####[facility] LABORATORYCLIA [id number] [address] [facility] Lymphocytes (Bld) [#/Vol] 2.05 10*3/uL Normal 1.00-4.00 [facility] Comment on above: Order Comment: Speci men Type: BLOOD SPECIMENOrdering Facility: [facility] Address: [address] [place] [address] Performed By: #### 5 7021-8 ####[facility] LABORATORYCLIA [id number] [address] Lymphocytes/100 WBC (Bld) 17.1 % Normal [facility] Comment on above: Order Comment: Speci men Type: BLOOD SPECIMENOrdering Facility: [facility] Address: [address] [place] [address] Performed By: #### 5 7021-8 ####[facility] LABORATORYCLIA [id number] [address] MCH (RBC) [Entitic mass] 27.7 pg Normal 26.0-34.0 [facility] Comment on above: Order Comment: Speci men Type: BLOOD SPECIMENOrdering Facility: [facility] Address: [address] [place] [address] Performed By: #### 5 7021-8 ####[facility] LABORATORYCLIA [id number] [address] MCHC (RBC) [Mass/Vol] 30.2 g/dL Low 30.5-36.0 [facility] Comment on above: Order Comment: Speci men Type: BLOOD SPECIMENOrdering Facility: [facility] Address: [address] [place] [address] Performed By: #### 5 7021-8 ####[facility] LABORATORYCLIA [id number] [address] MCV (RBC) [Entitic vol] 91.5 fL Normal 80.0-100.0 [facility] Comment on above: Order Comment: Speci men Type: BLOOD SPECIMENOrdering Facility: [facility] Address: [address] [place] [address] Performed By: #### 5 7021-8 ####[facility] LABORATORYCLIA [id number] [address] [place] Monocytes (Bld) [#/Vol] 0.53 10*3/uL Normal <0.87 [facility] Comment on above: Order Comment: Speci men Type: BLOOD SPECIMENOrdering Facility: [facility] Address: [address] [place] [address] Performed By: #### 5 7021-8 ####[facility] LABORATORYCLIA [id number] [address] [place] Monocytes/100 WBC (Bld) 4.4 % Normal [facility] Comment on above: Order Comment: Speci men Type: BLOOD SPECIMENOrdering Facility: [facility] Address: [address] [place] [address] Performed By: #### 5 7021-8 ####[facility] LABORATORYCLIA [id number] [address] [place] Neutrophils (Bld) [#/Vol] 8.91 10*3/uL High 1.45-7.50 [facility] Comment on above: Order Comment: Speci men Type: BLOOD SPECIMENOrdering Facility: [facility] Address: [address] [place] [address] Performed By: #### 5 7021-8 ####[facility] LABORATORYCLIA [id number] [address] [place] Neutrophils/100 WBC (Bld) 74.5 % Normal [facility] Comment on above: Order Comment: Speci men Type: BLOOD SPECIMENOrdering Facility: [facility] Address: [address] [place] [address] Performed By: #### 5 7021-8 ####[facility] LABORATORYCLIA [id number] [address] [place] Nucleated RBC (Bld) [#/Vol] 10*3/uL Normal <0.01 [facility] Comment on above: Order Comment: Speci men Type: BLOOD SPECIMENOrdering Facility: [facility] Address: [address] [place] [address] Performed By: #### 5 7021-8 ####[facility] LABORATORYCLIA [id number] [address] [place] Nucleated RBC/100 WBC (Bld) [Ratio] 0.0 /100 WBC Normal [facility] Comment on above: Order Comment: Speci men Type: BLOOD SPECIMENOrdering Facility: [facility] Address: [address] [place] [address] Performed By: #### 5 7021-8 ####[facility] LABORATORYCLIA [id number] [address] [place] Platelet mean volume (Bld) [Entitic vol] 10.4 fL Normal 9.0-12.7 [facility] Comment on above: Order Comment: Speci men Type: BLOOD SPECIMENOrdering Facility: [facility] Address: [address] [place] [address] Performed By: #### 5 7021-8 ####[facility] LABORATORYCLIA [id number] [address] [place] Platelets (Bld) [#/Vol] 319 10*3/uL Normal 150-400 [facility] Comment on above: Order Comment: Speci men Type: BLOOD SPECIMENOrdering Facility: [facility] Address: [address] [place] [address] Performed By: #### 5 7021-8 ####[facility] LABORATORYCLIA [id number] [address] [place] RBC (Bld) [#/Vol] 3.29 10*6/uL Low 4.20-6.00 [facility] Comment on above: Order Comment: Speci men Type: BLOOD SPECIMENOrdering Facility: [facility] Address: [address] [place] [address] Performed By: #### 5 7021-8 ####[facility] LABORATORYCLIA [id number] [address] [place] WBC (Bld) [#/Vol] 11.97 10*3/uL High 3.70-11.00 [facility] Comment on above: Order Comment: Speci men Type: BLOOD SPECIMENOrdering Facility: [facility] Address: [address] [place] [address] Performed By: #### 5 7021-8 ####[facility] LABORATORYCLIA [id number] [address] [place] CT BRAIN WO IVCONon 08-02-19 CT BRAIN WO IVCON Normal [facility] Magnesium SerPl-mCncon 08-01 Magnesium [Mass/Vol] 2.4 mg/dL High 1.7-2.3 [facility] Comment on above: Order Comment: Speci men Type: BLOOD SPECIMENOrdering Facility: [facility] Address: [address] [place] [address] Performed By: #### 2 4321-2, 91999-4, 82693-5, 2777-1 ####[facility] LABORATORYCLIA [id number] [address] [facility] NURSING PROGon 08-01-2021 NURSING PROG Normal [facility] NUTRITIONon 08-01-2021 NUTRITION Normal [facility] Phosphate SerPl-mCncon 08-01 Phosphate [Mass/Vol] 3.3 mg/dL Normal 2.7-4.8 Down [facility] Comment on above: Order Comment: Speci men Type: BLOOD SPECIMENOrdering Facility: [facility] Address: [address] [place] [address] Performed By: #### 2 4321-2, 19253-0, 11705-8, 2777-1 ####[facility] LABORATORYCLIA [id number] [address] [place] Prealbumin [Mass/Vol]on 07-06 Prealbumin Nephelometry [Mass/Vol] 30 mg/dL Normal 17-36 [facility] Comment on above: Order Comment: Speci men Type: BLOOD SPECIMENOrdering Facility: [facility] Address: [address] [place] [address] Performed By: #### 2 4321-2, 27257-6, 39062-0, 2777-1 ####[facility] LABORATORYCLIA [id number] [place] [address] [place] THERAPY NTon 08-01-2021 THERAPY NT Normal [facility] THERAPY NT Normal [facility] TYPE AND SCREENon 08-01-2021 ABO O Normal [facility] Comment on above: Order Comment: Speci men Type: BLOOD SPECIMENOrdering Facility: [facility] Address: [address] [place] [address] Performed By: #### T SCR ####[facility] BLOOD BANKCLIA [id number] [address] HISTORICAL AB SCR STATUS Negative [facility] Comment on above: Order Comment: Speci men Type: BLOOD SPECIMENOrdering Facility: [facility] Address: [address] [place] [address] Performed By: #### T SCR ####[facility] BLOOD BANKCLIA [id number] [address] [place] Rh Nom (Bld) Positive Normal [facility] Comment on above: Order Comment: Speci men Type: BLOOD SPECIMENOrdering Facility: [facility] Address: [address] [place] [address] Performed By: #### T SCR ####[facility] BLOOD BANKCLIA [id number] [address] [place] TYPE AND SCREEN EXPIRATION 08/04/2021 23:59 Normal [facility] Comment on above: Order Comment: Speci men Type: BLOOD SPECIMENOrdering Facility: [facility] Address: [address] [place] [address] Performed By: #### T SCR ####[facility] BLOOD BANKCLIA [id number] [address] [place] XR CHEST 1V FRONTALon 2021 XR CHEST 1V FRONTAL Normal [facility] aPTT PPPon 08-01-2021 aPTT Coag (PPP) [Time] 50.9 s High 23.0-32.4 [facility] Comment on above: Order Comment: Speci men Type: BLOOD SPECIMENOrdering Facility: [facility] Address: [address] [place] [address] Performed By: #### 1 4979-9 ####[facility] LABORATORYCLIA [id number] [address] [place] [facility] CBC W Auto Differential pane l (Bld)on 07-31-2021 Basophils (Bld) [#/Vol] 0.05 10*3/uL Normal <0.11 [facility] Comment on above: Order Comment: Speci men Type: BLOOD SPECIMENOrdering Facility: [facility] Address: [address] [place] [address] Performed By: #### 5 7021-8 ####[facility] LABORATORYCLIA [id number] [address] [place] Basophils/100 WBC (Bld) 0.4 % Normal [facility] Comment on above: Order Comment: Speci men Type: BLOOD SPECIMENOrdering Facility: [facility] Address: [address] [place] [address] Performed By: #### 5 7021-8 ####[facility] LABORATORYCLIA [id number] [address] STATES [facility] Differential cell count method Nom (Bld) Auto Normal [facility] Comment on above: Order Comment: Speci men Type: BLOOD SPECIMENOrdering Facility: [facility] Address: [address] [place] [address] Performed By: #### 5 7021-8 ####[facility] LABORATORYCLIA [id number] [address] [place] Eosinophils (Bld) [#/Vol] 0.51 10*3/uL High <0.46 [facility] Comment on above: Order Comment: Speci men Type: BLOOD SPECIMENOrdering Facility: [facility] Address: [address] [place] [address] Performed By: #### 5 7021-8 ####[facility]ORATORYCLIA [id number] [address] STATES [facility] Eosinophils/100 WBC (Bld) 4.5 % Normal [facility] Comment on above: Order Comment: Speci men Type: BLOOD SPECIMENOrdering Facility: [facility] Address: [address] [place] [address] Performed By: #### 5 7021-8 ####[facility] LABORATORYCLIA [id number] [address] [place] Erythrocyte distribution width (RBC) [Ratio] 17.5 % High 11.5-15.0 [facility] Comment on above: Order Comment: Speci men Type: BLOOD SPECIMENOrdering Facility: [facility] Address: [address] [place] [address] Performed By: #### 5 7021-8 ####[facility] LABORATORYCLIA [id number] [address] Hematocrit (Bld) [Volume fraction] 30.4 % Low 39.0-51.0 [facility] Comment on above: Order Comment: Speci men Type: BLOOD SPECIMENOrdering Facility: [facility] Address: [address] [place] [address] Performed By: #### 5 7021-8 ####[facility] LABORATORYCLIA [id number] [address] [place] Hemoglobin (Bld) [Mass/Vol] 9.2 g/dL Low 13.0-17.0 [facility] Comment on above: Order Comment: Speci men Type: BLOOD SPECIMENOrdering Facility: [facility] Address: [address] [place] [address] Performed By: #### 5 7021-8 ####[facility] LABORATORYCLIA [id number] [address] [place] IMMATURE GRAN % 0.5 % Normal [facility] Comment on above: Order Comment: Speci men Type: BLOOD SPECIMENOrdering Facility: [facility] Address: [address] [place] [address] Performed By: #### 5 7021-8 ####[facility] LABORATORYCLIA [id number] [address] IMMATURE GRAN ABS 0.06 k/uL Normal <0.10 [facility] Comment on above: Order Comment: Speci men Type: BLOOD SPECIMENOrdering Facility: [facility] Address: [address] [place] [address] Performed By: #### 5 7021-8 ####[facility] LABORATORYCLIA [id number] [address] Lymphocytes (Bld) [#/Vol] 1.99 10*3/uL Normal 1.00-4.00 [facility] Comment on above: Order Comment: Speci men Type: BLOOD SPECIMENOrdering Facility: [facility] Address: [address] [place] [address] Performed By: #### 5 7021-8 ####[facility] LABORATORYCLIA [id number] [address] Lymphocytes/100 WBC (Bld) 17.6 % Normal [facility] Comment on above: Order Comment: Speci men Type: BLOOD SPECIMENOrdering Facility: [facility] Address: [address] [place] [address] Performed By: #### 5 7021-8 ####[facility] LABORATORYCLIA [id number] [address] MCH (RBC) [Entitic mass] 28.4 pg Normal 26.0-34.0 [facility] Comment on above: Order Comment: Speci men Type: BLOOD SPECIMENOrdering Facility: [facility] Address: [address] [place] [address] Performed By: #### 5 7021-8 ####[facility] LABORATORYCLIA [id number] [address] MCHC (RBC) [Mass/Vol] 30.3 g/dL Low 30.5-36.0 [facility] Comment on above: Order Comment: Speci men Type: BLOOD SPECIMENOrdering Facility: [facility] Address: [address] [place] [address] Performed By: #### 5 7021-8 ####[facility] LABORATORYCLIA [id number] [address] [place] [facility] MCV (RBC) [Entitic vol] 93.8 fL Normal 80.0-100.0 [facility] Comment on above: Order Comment: Speci men Type: BLOOD SPECIMENOrdering Facility: [facility] Address: [address] [place] [address] Performed By: #### 5 7021-8 ####[facility] LABORATORYCLIA [id number] [address] [place] Monocytes (Bld) [#/Vol] 0.57 10*3/uL Normal <0.87 [facility] Comment on above: Order Comment: Speci men Type: BLOOD SPECIMENOrdering Facility: [facility] Address: [address] [place] [address] Performed By: #### 5 7021-8 ####[facility] LABORATORYCLIA [id number] [address] Monocytes/100 WBC (Bld) 5.0 % Normal [facility] Comment on above: Order Comment: Speci men Type: BLOOD SPECIMENOrdering Facility: [facility] Address: [address] [place] [address] Performed By: #### 5 7021-8 ####[facility] LABORATORYCLIA [id number] [address] [place] Neutrophils (Bld) [#/Vol] 8.12 10*3/uL High 1.45-7.50 [facility] Comment on above: Order Comment: Speci men Type: BLOOD SPECIMENOrdering Facility: [facility] Address: [address] [place] [address] Performed By: #### 5 7021-8 ####[facility] LABORATORYCLIA [id number] [address] [place] Neutrophils/100 WBC (Bld) 72.0 % Normal [facility] Comment on above: Order Comment: Speci men Type: BLOOD SPECIMENOrdering Facility: [facility] Address: [address] [place] [address] Performed By: #### 5 7021-8 ####[facility]ORATORYCLIA [id number] [address] STATES [facility] Nucleated RBC (Bld) [#/Vol] 10*3/uL Normal <0.01 [facility] Comment on above: Order Comment: Speci men Type: BLOOD SPECIMENOrdering Facility: [facility] Address: [address] [place] [address] Performed By: #### 5 7021-8 ####[facility] LABORATORYCLIA [id number] [address] Nucleated RBC/100 WBC (Bld) [Ratio] 0.0 /100 WBC Normal [facility] Comment on above: Order Comment: Speci men Type: BLOOD SPECIMENOrdering Facility: [facility] Address: [address] [place] [address] Performed By: #### 5 7021-8 ####[facility] LABORATORYCLIA [id number] [address] [place] Platelet mean volume (Bld) [Entitic vol] 10.9 fL Normal 9.0-12.7 [facility] Comment on above: Order Comment: Speci men Type: BLOOD SPECIMENOrdering Facility: [facility] Address: [address] [place] [address] Performed By: #### 5 7021-8 ####[facility] LABORATORYCLIA [id number] [address] [place] Platelets (Bld) [#/Vol] 303 10*3/uL Normal 150-400 [facility] Comment on above: Order Comment: Speci men Type: BLOOD SPECIMENOrdering Facility: [facility] Address: [address] [place] [address] Performed By: #### 5 7021-8 ####[facility] LABORATORYCLIA [id number] [address] [place] [facility] RBC (Bld) [#/Vol] 3.24 10*6/uL Low 4.20-6.00 [facility] Comment on above: Order Comment: Speci men Type: BLOOD SPECIMENOrdering Facility: [facility] Address: [address] [place] [address] Performed By: #### 5 7021-8 ####[facility] LABORATORYCLIA [id number] [address] WBC (Bld) [#/Vol] 11.30 10*3/uL High 3.70-11.00 [facility] Comment on above: Order Comment: Speci men Type: BLOOD SPECIMENOrdering Facility: [facility] Address: [address] [place] [address] Performed By: #### 5 7021-8 ####[facility] LABORATORYCLIA [id number] [address] NURSING PROGon 07-31-2021 NURSING PROG [facility] aPTT PPPon 07-31-2021 aPTT Coag (PPP) [Time] 64.9 s High 23.0-32.4 [facility] Comment on above: Order Comment: Speci men Type: BLOOD SPECIMENOrdering Facility: [facility] Address: [address] [place] [address] Performed By: #### 1 4979-9 ####[facility] LABORATORYCLIA [id number] [address] [facility] ALLIED HEALTHon 07-30-2021 ALLIED HEALTH Normal [facility] Bacteria CSF Culton 07-31-19 22 Bacteria identified Cx Nom (CSF) CULTURE, CSF: No growth 14 days GRAM STAIN: No organisms seen Few Mononuclear cells Rare Polymorphonuclear leukocytes Gram stain performed on cytospun specimen. Normal [facility] Comment on above: Performed By: #### 6 06-4 ####[facility] LABORATORYCLIA [id number] [place] [address] [place] Basic metabolic 2000 panelon 07-30-2021 Anion gap [Moles/Vol] 9 mmol/L Normal 9-18 [facility] Comment on above: Order Comment: Speci men Type: BLOOD SPECIMENOrdering Facility: [facility] Address: [address] [place] [address] Performed By: #### 2 777-1, 51342-7, ####[facility] LABORATORYCLIA [id number] [place] [address] [place] Calcium [Mass/Vol] 8.9 mg/dL Normal 8.5-10.2 [facility] Comment on above: Order Comment: Speci men Type: BLOOD SPECIMENOrdering Facility: [facility] Address: [address] [place] [address] Performed By: #### 2 777-1, , ####[facility] LABORATORYCLIA [id number] [place] [address] [place] Chloride [Moles/Vol] 95 mmol/L Low 97-105 [facility] Comment on above: Order Comment: Speci men Type: BLOOD SPECIMENOrdering Facility: [facility] Address: [address] [place] [address] Performed By: #### 2 777-1, , ####[facility] LABORATORYCLIA [id number] [place] [address] [place] CO2 [Moles/Vol] 28 mmol/L Normal 22-30 [facility] Comment on above: Order Comment: Speci men Type: BLOOD SPECIMENOrdering Facility: [facility] Address: [address] [place] [address] Performed By: #### 2 777-1, 62404-9, ####[facility] LABORATORYCLIA [id number] [address] [place] [facility] Creatinine [Mass/Vol] 0.67 mg/dL Low 0.73-1.22 [facility] Comment on above: Order Comment: Shira feldman Type: BLOOD SPECIMENOrdering Facility: [facility] Address: [address] [place] [address] Performed By: #### 2 777-1, 21635-1, ####[facility] LABORATORYCLIA [id number] [address] [facility] ESTIMATED GLOMERULAR FILTRATION RATE 101 mL/min/1.73m??? Normal >=60 [facility] Comment on above: Order Comment: Shira feldman Type: BLOOD SPECIMENOrdering Facility: [facility] Address: [address] [place] [address] Result Comment: Luzmaria mated Glomerular Filtration Rate [...] actual GFR. Performed By: #### 2 777-1, 09374-8, ####[facility] [id number] [address] [place] [facility] Glucose [Mass/Vol] 125 mg/dL High 74-99 [facility] Comment on above: Order Comment: Shira feldman Type: BLOOD SPECIMENOrdering Facility: [facility] Address: [address] Result Comment: The [place] [employer] (ADA) provides guidance for cutoff [...] Standards of Medical Care in Diabetes 2016, [place] [employer]. Diabetes Care. 2016.39(Suppl 1). Performed By: #### 2 777-1, 98356-9, ####[facility] LABORATORYCLIA [id number] [place] [address] [place] Potassium [Moles/Vol] 3.9 mmol/L Normal 3.7-5.1 [facility] Comment on above: Order Comment: Speci men Type: BLOOD SPECIMENOrdering Facility: [facility] Address: [address] [place] [address] Performed By: #### 2 777-1, , ####[facility] LABORATORYCLIA [id number] [address] [place] [facility] Sodium [Moles/Vol] 132 mmol/L Low 136-144 [facility] Comment on above: Order Comment: Speci men Type: BLOOD SPECIMENOrdering Facility: [facility] Address: [address] [place] [address] Performed By: #### 2 777-1, , ####[facility] LABORATORYCLIA [id number] [address] STATES [facility] Urea nitrogen [Mass/Vol] 38 mg/dL High 9-24 [facility] Comment on above: Order Comment: Speci men Type: BLOOD SPECIMENOrdering Facility: [facility] Address: [address] [place] [address] Performed By: #### 2 777-1, , ####[facility] LABORATORYCLIA [id number] [place] [address] [place] CBC W Auto Differential pane l (Bld)on 07-30-2021 Basophils (Bld) [#/Vol] 0.04 10*3/uL Normal <0.11 [facility] Comment on above: Order Comment: Speci men Type: BLOOD SPECIMENOrdering Facility: [facility] Address: [address] [place] [address] Performed By: #### 5 7021-8 ####[facility]ORATORYCLIA [id number] [address] Basophils/100 WBC (Bld) 0.4 % Normal [facility] Comment on above: Order Comment: Speci men Type: BLOOD SPECIMENOrdering Facility: [facility] Address: [address] [place] [address] Performed By: #### 5 7021-8 ####[facility] LABORATORYCLIA [id number] [address] Differential cell count method Nom (Bld) Auto Normal [facility] Comment on above: Order Comment: Speci men Type: BLOOD SPECIMENOrdering Facility: [facility] Address: [address] [place] [address] Performed By: #### 5 7021-8 ####[facility] LABORATORYCLIA [id number] [address] [place] [facility] Eosinophils (Bld) [#/Vol] 0.30 10*3/uL Normal <0.46 [facility] Comment on above: Order Comment: Speci men Type: BLOOD SPECIMENOrdering Facility: [facility] Address: [address] [place] [address] Performed By: #### 5 7021-8 ####[facility] LABORATORYCLIA [id number] [address] Eosinophils/100 WBC (Bld) 2.7 % Normal [facility] Comment on above: Order Comment: Speci men Type: BLOOD SPECIMENOrdering Facility: [facility] Address: [address] [place] [address] Performed By: #### 5 7021-8 ####[facility]ORATORYCLIA [id number] [address] [place] Erythrocyte distribution width (RBC) [Ratio] 17.2 % High 11.5-15.0 [facility] Comment on above: Order Comment: Speci men Type: BLOOD SPECIMENOrdering Facility: [facility] Address: [address] [place] [address] Performed By: #### 5 7021-8 ####[facility] LABORATORYCLIA [id number] [address] Hematocrit (Bld) [Volume fraction] 30.8 % Low 39.0-51.0 [facility] Comment on above: Order Comment: Speci men Type: BLOOD SPECIMENOrdering Facility: [facility] Address: [address] [place] [address] Performed By: #### 5 7021-8 ####[facility] LABORATORYCLIA [id number] [address] Hemoglobin (Bld) [Mass/Vol] 9.4 g/dL Low 13.0-17.0 [facility] Comment on above: Order Comment: Speci men Type: BLOOD SPECIMENOrdering Facility: [facility] Address: [address] [place] [address] Performed By: #### 5 7021-8 ####[facility] LABORATORYCLIA [id number] [address] IMMATURE GRAN % 0.5 % Normal [facility] Comment on above: Order Comment: Speci men Type: BLOOD SPECIMENOrdering Facility: [facility] Address: [address] [place] [address] Performed By: #### 5 7021-8 ####[facility] LABORATORYCLIA [id number] [address] IMMATURE GRAN ABS 0.06 k/uL Normal <0.10 [facility] Comment on above: Order Comment: Speci men Type: BLOOD SPECIMENOrdering Facility: [facility] Address: [address] [place] [address] Performed By: #### 5 7021-8 ####[facility] LABORATORYCLIA [id number] [address] Lymphocytes (Bld) [#/Vol] 1.68 10*3/uL Normal 1.00-4.00 [facility] Comment on above: Order Comment: Speci men Type: BLOOD SPECIMENOrdering Facility: [facility] Address: [address] [place] [address] Performed By: #### 5 7021-8 ####[facility] LABORATORYCLIA [id number] [address] Lymphocytes/100 WBC (Bld) 15.3 % Normal [facility] Comment on above: Order Comment: Speci men Type: BLOOD SPECIMENOrdering Facility: [facility] Address: [address] [place] [address] Performed By: #### 5 7021-8 ####[facility] LABORATORYCLIA [id number] [address] [place] [facility] MCH (RBC) [Entitic mass] 28.0 pg Normal 26.0-34.0 [facility] Comment on above: Order Comment: Speci men Type: BLOOD SPECIMENOrdering Facility: [facility] Address: [address] [place] [address] Performed By: #### 5 7021-8 ####[facility] LABORATORYCLIA [id number] [address] MCHC (RBC) [Mass/Vol] 30.5 g/dL Normal 30.5-36.0 [facility] Comment on above: Order Comment: Speci men Type: BLOOD SPECIMENOrdering Facility: [facility] Address: [address] [place] [address] Performed By: #### 5 7021-8 ####[facility] LABORATORYCLIA [id number] [address] MCV (RBC) [Entitic vol] 91.7 fL Normal 80.0-100.0 [facility] Comment on above: Order Comment: Speci men Type: BLOOD SPECIMENOrdering Facility: [facility] Address: [address] [place] [address] Performed By: #### 5 7021-8 ####[facility]ORATORYCLIA [id number] [place] [address] [place] Monocytes (Bld) [#/Vol] 0.53 10*3/uL Normal <0.87 [facility] Comment on above: Order Comment: Speci men Type: BLOOD SPECIMENOrdering Facility: [facility] Address: [address] [place] [address] Performed By: #### 5 7021-8 ####[facility]ORATORYCLIA [id number] [address] [place] Monocytes/100 WBC (Bld) 4.8 % Normal [facility] Comment on above: Order Comment: Speci men Type: BLOOD SPECIMENOrdering Facility: [facility] Address: [address] [place] [address] Performed By: #### 5 7021-8 ####[facility] LABORATORYCLIA [id number] [place] [address] [place] Neutrophils (Bld) [#/Vol] 8.39 10*3/uL High 1.45-7.50 [facility] Comment on above: Order Comment: Speci men Type: BLOOD SPECIMENOrdering Facility: [facility] Address: [address] [place] [address] Performed By: #### 5 7021-8 ####[facility] LABORATORYCLIA [id number] [address] [place] Neutrophils/100 WBC (Bld) 76.3 % Normal [facility] Comment on above: Order Comment: Speci men Type: BLOOD SPECIMENOrdering Facility: [facility] Address: [address] [place] [address] Performed By: #### 5 7021-8 ####[facility] LABORATORYCLIA [id number] [place] [address] [place] Nucleated RBC (Bld) [#/Vol] 10*3/uL Normal <0.01 [facility] Comment on above: Order Comment: Speci men Type: BLOOD SPECIMENOrdering Facility: [facility] Address: [address] [address] Performed By: #### 5 7021-8 ####[facility] LABORATORYCLIA [id number] [address] Nucleated RBC/100 WBC (Bld) [Ratio] 0.0 /100 WBC Normal [facility] Comment on above: Order Comment: Speci men Type: BLOOD SPECIMENOrdering Facility: [facility] Address: [address] [place] [address] Performed By: #### 5 7021-8 ####[facility] LABORATORYCLIA [id number] [address] [place] Platelet mean volume (Bld) [Entitic vol] 10.9 fL Normal 9.0-12.7 [facility] Comment on above: Order Comment: Speci men Type: BLOOD SPECIMENOrdering Facility: [facility] Address: [address] [place] [address] Performed By: #### 5 7021-8 ####[facility] LABORATORYCLIA [id number] [address] [place] Platelets (Bld) [#/Vol] 287 10*3/uL Normal 150-400 [facility] Comment on above: Order Comment: Speci men Type: BLOOD SPECIMENOrdering Facility: [facility] Address: [address] [place] [address] Performed By: #### 5 7021-8 ####[facility] LABORATORYCLIA [id number] [address] [place] RBC (Bld) [#/Vol] 3.36 10*6/uL Low 4.20-6.00 [facility] Comment on above: Order Comment: Speci men Type: BLOOD SPECIMENOrdering Facility: [facility] Address: [address] [place] [address] Performed By: #### 5 7021-8 ####[facility] LABORATORYCLIA [id number] [address] [place] WBC (Bld) [#/Vol] 11.00 10*3/uL Normal 3.70-11.00 [facility] Comment on above: Order Comment: Speci men Type: BLOOD SPECIMENOrdering Facility: [facility] Address: [address] [place] [address] Performed By: #### 5 7021-8 ####[facility]ORATORYCLIA [id number] [address] CSF MANUAL DIFFon 07-30-2021 DIF TTL, CSF 100 cells counted Normal [facility] Comment on above: Order Comment: Speci men Type: CEREBROSPINAL FLUIDOrdering Facility: [facility] Address: [address] [place] [address] Performed By: #### L [id number], [id number], 51727-7 ####[facility] LABORATORYCLIA [id number] [address] [place] EOSIN%, CSF 0 % Normal [facility] Comment on above: Order Comment: Speci men Type: CEREBROSPINAL FLUIDOrdering Facility: [facility] Address: [address] [place] [address] Performed By: #### L [id number], NMF0965, 36089-0 ####[facility]ORATORYCLIA [id number] [address] [place] LYMPH%, CSF 75 % Normal 50-90 [facility] Comment on above: Order Comment: Speci men Type: CEREBROSPINAL FLUIDOrdering Facility: [facility] Address: [address] [place] [address] Performed By: #### L [id number], PPL0155, 18520-1 ####[facility]ORATORYCLIA [id number] [address] [place] MACRO%, CSF 9 % High <1 [facility] Comment on above: Order Comment: Speci men Type: CEREBROSPINAL FLUIDOrdering Facility: [facility] Address: [address] [place] [address] Performed By: #### L [id number], BII3490, 34337-1 ####[facility]ORATORYCLIA [id number] [place] [address] [place] MONO%, CSF 10 % Normal 10-50 [facility] Comment on above: Order Comment: Speci men Type: CEREBROSPINAL FLUIDOrdering Facility: [facility] Address: [address] [place] [address] Performed By: #### L [id number], [id number], 96271-0 ####[facility]ORATORYCLIA [id number] [address] [place] OTHER CL%, CSF 4 % Normal [facility] Comment on above: Order Comment: Speci men Type: CEREBROSPINAL FLUIDOrdering Facility: [facility] Address: [address] [place] [address] Result Comment: Path review to follow. Performed By: #### L [id number], NYM1403, 16961-1 ####[facility]ORATORYCLIA [id number] [address] REAC LYMPH %, CSF 2 % Normal [facility] Comment on above: Order Comment: Speci men Type: CEREBROSPINAL FLUIDOrdering Facility: [facility] Address: [address] [place] [address] Performed By: #### L [id number], [id number], 65694-2 ####[facility]ORATORYCLIA [id number] [address] CSF PATHOLOGIST INTERP (LAB REFLEX ORDER-NO BILL)on 07-30-2021 CSF STAFF REVIEW Negative Normal [facility] Comment on above: Order Comment: Speci men Type: CEREBROSPINAL FLUIDOrdering Facility: [facility] Address: [address] [place] [address] Performed By: #### L [id number], SSH3472, 95399-2 ####[facility]ORATORYCLIA [id number] [address] Pathologist name Reviewed by Eloise rebolledo MD [facility] Comment on above: Order Comment: Speci men Type: CEREBROSPINAL FLUIDOrdering Facility: [facility] Address: [address] [place] [address] Performed By: #### L [id number], GMC1274, 40604-7 ####[facility] LABORATORYCLIA [id number] [address] [place] CT BRAIN WO IVCONon 07-31-19 CT BRAIN WO IVCON Normal [facility] Cell count panel (CSF)on Clarity (CSF) Clear Normal Clear [facility] Comment on above: Order Comment: Speci men Type: CEREBROSPINAL FLUIDOrdering Facility: [facility] Address: [address] [place] [address] Performed By: #### L [id number], WCO6658, 38827-6 ####[facility] LABORATORYCLIA [id number] [address] OF [facility] Clarity (Unsp spec) Clear Normal Clear [facility] Comment on above: Order Comment: Speci men Type: CEREBROSPINAL FLUIDOrdering Facility: [facility] Address: [address] [place] [address] Performed By: #### L [id number], GOD5105, 21439-1 ####[facility]ORATORYCLIA [id number] [address] [place] Color (CSF) Colorless Normal Colorless [facility] Comment on above: Order Comment: Speci men Type: CEREBROSPINAL FLUIDOrdering Facility: [facility] Address: [address] [place] [address] Performed By: #### L [id number], LFZ9222, 45206-4 ####[facility]ORATORYCLIA [id number] [address] [place] Color (Spun CSF) Colorless Normal Colorless [facility] Comment on above: Order Comment: Speci men Type: CEREBROSPINAL FLUIDOrdering Facility: [facility] Address: [address] [place] [address] Performed By: #### L [id number], CJP7509, 17905-5 ####[facility]PITALCLIA [id number] [address] CSF TUBE [employer]BER [employer] Normal [facility] Comment on above: Order Comment: Shira feldman Type: CEREBROSPINAL FLUIDOrdering Facility: [facility] Address: [address] [place] [address] Performed By: #### L [id number], EBZ2888, 84768-5 ####[facility] LABORATORYCLIA [id number] [address] RBC Manual cnt (CSF) [#/Vol] 9 cells/uL High 0-5 [facility] Comment on above: Order Comment: Shira feldman Type: CEREBROSPINAL FLUIDOrdering Facility: [facility] Address: [address] [place] [address] Performed By: #### L [id number], OMX9654, 10350-4 ####[facility]PITALCLIA [id number] [address] WBC Manual cnt (CSF) [#/Vol] 8 cells/uL High 0-5 [facility] Comment on above: Order Comment: Shira feldman Type: CEREBROSPINAL FLUIDOrdering Facility: [facility] Address: [address] [place] [address] Performed By: #### L [id number], BOM1764, 58636-9 ####[facility]PITALCLIA [id number] [address] Glucose CSF-mCncon 2 Glucose (CSF) [Mass/Vol] 65 mg/dL Normal 40-70 [facility] Comment on above: Order Comment: Johni men Type: CEREBROSPINAL FLUIDOrdering Facility: [facility] Address: [address] [place] [address] Result Comment: Lumb ar CSF glucose values of healthy patients are approximately 60% of the plasma values and must always be compared with a concurrently measured plasma value for adequate clinical interpretation.References: 1. Glucose HK (GLUC3) [package insert V 12.0 [place]]. [employer], [place], [place]. September 2015. 2. Michelle Moore, Michelle Manjarrez (2015). Chapter 7: Glucose and Lactate. F. Irina rose al.(eds.), Cerebrospinal Fluid in Clinical Neurology. [place]: [employer]. Performed By: #### 2 342-4, 2880-3 ####[facility] LABORATORYCLIA [id number] [address] Magnesium SerPl-mCncon 07-30 Magnesium [Mass/Vol] 2.5 mg/dL High 1.7-2.3 [facility] Comment on above: Order Comment: Speci men Type: BLOOD SPECIMENOrdering Facility: [facility] Address: [address] [place] [address] Performed By: #### 2 777-1, 98559-2, ####[facility] LABORATORYCLIA [id number] [address] NURSING PROGon 07-30-2021 NURSING PROG Normal [facility] Phosphate SerPl-mCncon 07-30 Phosphate [Mass/Vol] 2.4 mg/dL Low 2.7-4.8 [facility] Comment on above: Order Comment: Speci men Type: BLOOD SPECIMENOrdering Facility: [facility] Address: [address] [place] [address] Performed By: #### 2 777-1, 37371-2, ####[facility] LABORATORYCLIA [id number] [address] Prot CSF-mCncon 07-30-2021 Protein (CSF) [Mass/Vol] 50 mg/dL High 15-45 [facility] Comment on above: Order Comment: Speci men Type: CEREBROSPINAL FLUIDOrdering Facility: [facility] Address: [address] [place] [address] Performed By: #### 2 342-4, 2880-3 ####[facility] LABORATORYCLIA [id number] [address] aPTT PPPon 07-30-2021 aPTT Coag (PPP) [Time] 64.1 s High 23.0-32.4 [facility] Comment on above: Order Comment: Speci men Type: BLOOD SPECIMENOrdering Facility: [facility] Address: [address] [place] [address] Performed By: #### 1 4979-9 ####[facility] LABORATORYCLIA [id number] [address] [place] Bacteria CSF Culton 07-30-19 22 Bacteria identified Cx Nom (CSF) CULTURE, CSF: No growth 14 days GRAM STAIN: No cells or organisms seen Gram stain performed on cytospun specimen. Gram stain confirmed by microbiology Normal [facility] Comment on above: Performed By: #### 6 06-4 ####[facility] LABORATORYCLIA [id number] [address] [place] CASE MANAGEMon 07-29-2021 CASE MANAGEM Normal [facility] CBC W Auto Differential pane l (Bld)on 07-29-2021 Basophils (Bld) [#/Vol] 0.03 10*3/uL Normal <0.11 [facility] Comment on above: Order Comment: Speci men Type: BLOOD SPECIMENOrdering Facility: [facility] Address: [address] [place] [address] Performed By: #### 5 7021-8 ####[facility] LABORATORYCLIA [id number] [address] [place] Basophils/100 WBC (Bld) 0.3 % Normal [facility] Comment on above: Order Comment: Speci men Type: BLOOD SPECIMENOrdering Facility: [facility] Address: [address] [place] [address] Performed By: #### 5 7021-8 ####[facility] LABORATORYCLIA [id number] [address] [place] Differential cell count method Nom (Bld) Auto Normal [facility] Comment on above: Order Comment: Speci men Type: BLOOD SPECIMENOrdering Facility: [facility] Address: [address] [place] [address] Performed By: #### 5 7021-8 ####[facility] LABORATORYCLIA [id number] [address] STATES OF [facility] Eosinophils (Bld) [#/Vol] 0.40 10*3/uL Normal <0.46 [facility] Comment on above: Order Comment: Speci men Type: BLOOD SPECIMENOrdering Facility: [facility] Address: [address] [place] [address] Performed By: #### 5 7021-8 ####[facility] LABORATORYCLIA [id number] [address] Eosinophils/100 WBC (Bld) 3.9 % Normal [facility] Comment on above: Order Comment: Speci men Type: BLOOD SPECIMENOrdering Facility: [facility] Address: [address] [place] [address] Performed By: #### 5 7021-8 ####[facility] LABORATORYCLIA [id number] [address] Erythrocyte distribution width (RBC) [Ratio] 17.1 % High 11.5-15.0 [facility] Comment on above: Order Comment: Speci men Type: BLOOD SPECIMENOrdering Facility: [facility] Address: [address] [place] [address] Performed By: #### 5 7021-8 ####[facility] LABORATORYCLIA [id number] [address] Hematocrit (Bld) [Volume fraction] 32.0 % Low 39.0-51.0 [facility] Comment on above: Order Comment: Speci men Type: BLOOD SPECIMENOrdering Facility: [facility] Address: [address] [place] [address] Performed By: #### 5 7021-8 ####[facility] LABORATORYCLIA [id number] [address] Hemoglobin (Bld) [Mass/Vol] 9.7 g/dL Low 13.0-17.0 [facility] Comment on above: Order Comment: Speci men Type: BLOOD SPECIMENOrdering Facility: [facility] Address: [address] [place] [address] Performed By: #### 5 7021-8 ####[facility]ORATORYCLIA [id number] [address] IMMATURE GRAN % 0.6 % Normal [facility] Comment on above: Order Comment: Speci men Type: BLOOD SPECIMENOrdering Facility: [facility] Address: [address] [place] [address] Performed By: #### 5 7021-8 ####[facility]ATORYCLIA [id number] [address] IMMATURE GRAN ABS 0.06 k/uL Normal <0.10 [facility] Comment on above: Order Comment: Speci men Type: BLOOD SPECIMENOrdering Facility: [facility] Address: [address] [place] [address] Performed By: #### 5 7021-8 ####[facility]ATORYCLIA [id number] [address] [place] Lymphocytes (Bld) [#/Vol] 1.96 10*3/uL Normal 1.00-4.00 [facility] Comment on above: Order Comment: Speci men Type: BLOOD SPECIMENOrdering Facility: [facility] Address: [address] [place] [address] Performed By: #### 5 7021-8 ####[facility]ATORYCLIA [id number] [address] Lymphocytes/100 WBC (Bld) 19.0 % Normal [facility] Comment on above: Order Comment: Speci men Type: BLOOD SPECIMENOrdering Facility: [facility] Address: [address] [place] [address] Performed By: #### 5 7021-8 ####[facility]ATORYCLIA [id number] [address] MCH (RBC) [Entitic mass] 28.0 pg Normal 26.0-34.0 [facility] Comment on above: Order Comment: Speci men Type: BLOOD SPECIMENOrdering Facility: [facility] Address: [address] [place] [address] Performed By: #### 5 7021-8 ####[facility] LABORATORYCLIA [id number] [address] [place] [facility] MCHC (RBC) [Mass/Vol] 30.3 g/dL Low 30.5-36.0 [facility] Comment on above: Order Comment: Speci men Type: BLOOD SPECIMENOrdering Facility: [facility] Address: [address] [place] [address] Performed By: #### 5 7021-8 ####[facility] LABORATORYCLIA [id number] [address] MCV (RBC) [Entitic vol] 92.5 fL Normal 80.0-100.0 [facility] Comment on above: Order Comment: Speci men Type: BLOOD SPECIMENOrdering Facility: [facility] Address: [address] [place] [address] Performed By: #### 5 7021-8 ####[facility] LABORATORYCLIA [id number] [address] Monocytes (Bld) [#/Vol] 0.53 10*3/uL Normal <0.87 [facility] Comment on above: Order Comment: Speci men Type: BLOOD SPECIMENOrdering Facility: [facility] Address: [address] [place] [address] Performed By: #### 5 7021-8 ####[facility] LABORATORYCLIA [id number] [address] Monocytes/100 WBC (Bld) 5.2 % Normal [facility] Comment on above: Order Comment: Speci men Type: BLOOD SPECIMENOrdering Facility: [facility] Address: [address] [place] [address] Performed By: #### 5 7021-8 ####[facility]ORYCLIA [id number] [address] [place] Neutrophils (Bld) [#/Vol] 7.31 10*3/uL Normal 1.45-7.50 [facility] Comment on above: Order Comment: Speci men Type: BLOOD SPECIMENOrdering Facility: [facility] Address: [address] [place] [address] Performed By: #### 5 7021-8 ####[facility] LABORATORYCLIA [id number] [address] [place] [facility] Neutrophils/100 WBC (Bld) 71.0 % Normal [facility] Comment on above: Order Comment: Speci men Type: BLOOD SPECIMENOrdering Facility: [facility] Address: [address] [place] [address] Performed By: #### 5 7021-8 ####[facility] LABORATORYCLIA [id number] [address] [place] [facility] Nucleated RBC (Bld) [#/Vol] 10*3/uL Normal <0.01 [facility] Comment on above: Order Comment: Speci men Type: BLOOD SPECIMENOrdering Facility: [facility] Address: [address] [place] [address] Performed By: #### 5 7021-8 ####[facility] LABORATORYCLIA [id number] [address] [place] [facility] Nucleated RBC/100 WBC (Bld) [Ratio] 0.0 /100 WBC Normal [facility] Comment on above: Order Comment: Speci men Type: BLOOD SPECIMENOrdering Facility: [facility] Address: [address] [place] [address] Performed By: #### 5 7021-8 ####[facility]ORYCLIA [id number] [address] [place] Platelet mean volume (Bld) [Entitic vol] 11.2 fL Normal 9.0-12.7 [facility] Comment on above: Order Comment: Speci men Type: BLOOD SPECIMENOrdering Facility: [facility] Address: [address] [place] [address] Performed By: #### 5 7021-8 ####[facility] LABORATORYCLIA [id number] [address] Platelets (Bld) [#/Vol] 276 10*3/uL Normal 150-400 [facility] Comment on above: Order Comment: Speci men Type: BLOOD SPECIMENOrdering Facility: [facility] Address: [address] [place] [address] Performed By: #### 5 7021-8 ####[facility] LABORATORYCLIA [id number] [address] RBC (Bld) [#/Vol] 3.46 10*6/uL Low 4.20-6.00 [facility] Comment on above: Order Comment: Speci men Type: BLOOD SPECIMENOrdering Facility: [facility] Address: [address] [place] [address] Performed By: #### 5 7021-8 ####[facility] LABORATORYCLIA [id number] [address] OF [facility] WBC (Bld) [#/Vol] 10.29 10*3/uL Normal 3.70-11.00 [facility] Comment on above: Order Comment: Speci men Type: BLOOD SPECIMENOrdering Facility: [facility] Address: [address] [place] [address] Performed By: #### 5 7021-8 ####[facility] LABORATORYCLIA [id number] [address] NURSING PROGon 07-29-2021 NURSING PROG Normal [facility] THERAPY NTon 07-29-2021 THERAPY NT Normal [facility] aPTT PPPon 07-29-2021 aPTT Coag (PPP) [Time] 59.2 s High 23.0-32.4 [facility] Comment on above: Order Comment: Speci men Type: BLOOD SPECIMENOrdering Facility: [facility] Address: [address] [place] [address] Performed By: #### 1 4979-9 ####[facility] LABORATORYCLIA [id number] [place] [address] [place] ALLIED HEALTHon 07-28-2021 ALLIED HEALTH Normal [facility] Basic metabolic 2000 panelon 07-28-2021 Anion gap [Moles/Vol] 7 mmol/L Low 9-18 [facility] Comment on above: Order Comment: Speci men Type: BLOOD SPECIMENOrdering Facility: [facility] Address: [address] [place] [address] Performed By: #### 1 4338-8, 43905-3, 2777-1, 36887-2 ####[facility] LABORATORYCLIA [id number] [place] [address] [place] Calcium [Mass/Vol] 9.0 mg/dL Normal 8.5-10.2 [facility] Comment on above: Order Comment: Speci men Type: BLOOD SPECIMENOrdering Facility: [facility] Address: [address] [place] [address] Performed By: #### 1 4338-8, 39525-0, 2777-1, 50312-7 ####[facility] LABORATORYCLIA [id number] [place] [address] [place] Chloride [Moles/Vol] 94 mmol/L Low 97-105 [facility] Comment on above: Order Comment: Speci men Type: BLOOD SPECIMENOrdering Facility: [facility] Address: [address] [place] [address] Performed By: #### 1 4338-8, 93490-9, 2777-1, 49103-1 ####[facility] LABORATORYCLIA [id number] [place] [address] [place] CO2 [Moles/Vol] 31 mmol/L High 22-30 [facility] Comment on above: Order Comment: Speci men Type: BLOOD SPECIMENOrdering Facility: [facility] Address: [address] Performed By: #### 1 4338-8, 18145-3, 2777-, 84857-4 ####[facility]ITALCLIA [id number] [place] [address] [place] Creatinine [Mass/Vol] 0.75 mg/dL Normal 0.73-1.22 [facility] Comment on above: Order Comment: Speci men Type: BLOOD SPECIMENOrdering Facility: [facility] Address: [address] [place] [address] Performed By: #### 1 4338-8, 87914-3, 2776-05, 91078-0 ####[facility] [id number] [address] [place] ESTIMATED GLOMERULAR FILTRATION RATE 98 mL/min/1.73m??? Normal >=60 [facility] Comment on above: Order Comment: Speci men Type: BLOOD SPECIMENOrdering Facility: [facility] Address: [address] [place] [address] Result Comment: Luzmaria mated Glomerular Filtration Rate [...] actual GFR. Performed By: #### 1 4338-8, 54328-0, 277-, 54748-4 ####[facility] LABORATORYIA [id number] [place] [address] [place] Glucose [Mass/Vol] 122 mg/dL High 74-99 [facility] Comment on above: Order Comment: Speci men Type: BLOOD SPECIMENOrdering Facility: [facility] Address: [address] [place] [address] Result Comment: The [place] Diabetes Association (ADA) provides guidance for cutoff [...] Standards of Medical Care in Diabetes 2016, [place] [employer]. Diabetes Care. 2016.39(Suppl 1). Performed By: #### 1 4338-8, 33438-9, 2776-, 69812-4 ####[facility] LABORATORYCLIA [id number] [place] [address] [place] Potassium [Moles/Vol] 4.0 mmol/L Normal 3.7-5.1 [facility] Comment on above: Order Comment: Speci men Type: BLOOD SPECIMENOrdering Facility: [facility] Address: [address] [place] [address] Performed By: #### 1 4338-8, 81085-5, 2776-, 86661-6 ####[facility] LABORATORYCLIA [id number] [place] [address] [place] Sodium [Moles/Vol] 132 mmol/L Low 136-144 [facility] Comment on above: Order Comment: Speci men Type: BLOOD SPECIMENOrdering Facility: [facility] Address: [address] [place] [address] Performed By: #### 1 4338-8, 13247-1, 2776-05, 65357-2 ####[facility] LABORATORYCLIA [id number] [place] [address] [place] Urea nitrogen [Mass/Vol] 34 mg/dL High 9-24 [facility] Comment on above: Order Comment: Johni men Type: BLOOD SPECIMENOrdering Facility: [facility] Address: [address] [address] Performed By: #### 1 4338-8, 70649-5, 2776-1, 88645-6 ####[facility] LABORATORYCLIA [id number] [place] [address] [place] CBC W Auto Differential pane l (Bld)on 07-28-2021 Basophils (Bld) [#/Vol] 0.04 10*3/uL Normal <0.11 [facility] Comment on above: Order Comment: Speci men Type: BLOOD SPECIMENOrdering Facility: [facility] Address: [address] [place] [address] Performed By: #### 5 7021-8 ####[facility] LABORATORYCLIA [id number] [address] [place] Basophils/100 WBC (Bld) 0.5 % [facility] Comment on above: Order Comment: Speci men Type: BLOOD SPECIMENOrdering Facility: [facility] Address: [address] [place] [address] Performed By: #### 5 7021-8 ####[facility] LABORATORYCLIA [id number] [address] STATES [facility] Differential cell count method Nom (Bld) Auto Normal [facility] Comment on above: Order Comment: Speci men Type: BLOOD SPECIMENOrdering Facility: [facility] Address: [address] [place] [address] Performed By: #### 5 7021-8 ####[facility]ORATORYCLIA [id number] [place] [address] [place] Eosinophils (Bld) [#/Vol] 0.30 10*3/uL Normal <0.46 [facility] Comment on above: Order Comment: Speci men Type: BLOOD SPECIMENOrdering Facility: [facility] Address: [address] [place] [address] Performed By: #### 5 7021-8 ####[facility]ORATORYCLIA [id number] [address] [place] Eosinophils/100 WBC (Bld) 3.4 % Normal [facility] Comment on above: Order Comment: Speci men Type: BLOOD SPECIMENOrdering Facility: [facility] Address: [address] [place] [address] Performed By: #### 5 7021-8 ####[facility] LABORATORYCLIA [id number] [address] Erythrocyte distribution width (RBC) [Ratio] 16.9 % High 11.5-15.0 [facility] Comment on above: Order Comment: Speci men Type: BLOOD SPECIMENOrdering Facility: [facility] Address: [address] [place] [address] Performed By: #### 5 7021-8 ####[facility] LABORATORYCLIA [id number] [address] Hematocrit (Bld) [Volume fraction] 30.3 % Low 39.0-51.0 [facility] Comment on above: Order Comment: Speci men Type: BLOOD SPECIMENOrdering Facility: [facility] Address: [address] [place] [address] Performed By: #### 5 7021-8 ####[facility] LABORATORYCLIA [id number] [address] Hemoglobin (Bld) [Mass/Vol] 9.2 g/dL Low 13.0-17.0 [facility] Comment on above: Order Comment: Speci men Type: BLOOD SPECIMENOrdering Facility: [facility] Address: [address] [place] [address] Performed By: #### 5 7021-8 ####[facility] LABORATORYCLIA [id number] [address] IMMATURE GRAN % 0.6 % Normal [facility] Comment on above: Order Comment: Speci men Type: BLOOD SPECIMENOrdering Facility: [facility] Address: [address] [place] [address] Performed By: #### 5 7021-8 ####[facility] LABORATORYCLIA [id number] [address] IMMATURE GRAN ABS 0.05 k/uL Normal <0.10 [facility] Comment on above: Order Comment: Speci men Type: BLOOD SPECIMENOrdering Facility: [facility] Address: [address] [place] [address] Performed By: #### 5 7021-8 ####[facility] LABORATORYCLIA [id number] [address] OF [facility] Lymphocytes (Bld) [#/Vol] 1.68 10*3/uL Normal 1.00-4.00 [facility] Comment on above: Order Comment: Speci men Type: BLOOD SPECIMENOrdering Facility: [facility] Address: [address] [place] [address] Performed By: #### 5 7021-8 ####[facility] LABORATORYCLIA [id number] [address] Lymphocytes/100 WBC (Bld) 19.2 % Normal [facility] Comment on above: Order Comment: Speci men Type: BLOOD SPECIMENOrdering Facility: [facility] Address: [address] [place] [address] Performed By: #### 5 7021-8 ####[facility] LABORATORYCLIA [id number] [address] [place] [facility] MCH (RBC) [Entitic mass] 28.4 pg Normal 26.0-34.0 [facility] Comment on above: Order Comment: Speci men Type: BLOOD SPECIMENOrdering Facility: [facility] Address: [address] [place] [address] Performed By: #### 5 7021-8 ####[facility] LABORATORYCLIA [id number] [address] STATES [facility] MCHC (RBC) [Mass/Vol] 30.4 g/dL Low 30.5-36.0 [facility] Comment on above: Order Comment: Speci men Type: BLOOD SPECIMENOrdering Facility: [facility] Address: [address] [place] [address] Performed By: #### 5 7021-8 ####[facility] LABORATORYCLIA [id number] [place] [address] [place] MCV (RBC) [Entitic vol] 93.5 fL Normal 80.0-100.0 [facility] Comment on above: Order Comment: Speci men Type: BLOOD SPECIMENOrdering Facility: [facility] Address: [address] [place] [address] Performed By: #### 5 7021-8 ####[facility] LABORATORYCLIA [id number] [place] [address] [place] Monocytes (Bld) [#/Vol] 0.58 10*3/uL Normal <0.87 [facility] Comment on above: Order Comment: Speci men Type: BLOOD SPECIMENOrdering Facility: [facility] Address: [address] [place] [address] Performed By: #### 5 7021-8 ####[facility] LABORATORYCLIA [id number] [address] [place] Monocytes/100 WBC (Bld) 6.6 % Normal [facility] Comment on above: Order Comment: Speci men Type: BLOOD SPECIMENOrdering Facility: [facility] Address: [address] [place] [address] Performed By: #### 5 7021-8 ####[facility] LABORATORYCLIA [id number] [place] [address] [place] Neutrophils (Bld) [#/Vol] 6.11 10*3/uL Normal 1.45-7.50 [facility] Comment on above: Order Comment: Speci men Type: BLOOD SPECIMENOrdering Facility: [facility] Address: [address] [place] [address] Performed By: #### 5 7021-8 ####[facility] LABORATORYCLIA [id number] [address] [place] Neutrophils/100 WBC (Bld) 69.7 % Normal [facility] Comment on above: Order Comment: Speci men Type: BLOOD SPECIMENOrdering Facility: [facility] Address: [address] [address] Performed By: #### 5 7021-8 ####[facility] LABORATORYCLIA [id number] [address] Nucleated RBC (Bld) [#/Vol] 10*3/uL Normal <0.01 [facility] Comment on above: Order Comment: Speci men Type: BLOOD SPECIMENOrdering Facility: [facility] Address: [address] [place] [address] Performed By: #### 5 7021-8 ####[facility] LABORATORYCLIA [id number] [address] Nucleated RBC/100 WBC (Bld) [Ratio] 0.0 /100 WBC Normal [facility] Comment on above: Order Comment: Speci men Type: BLOOD SPECIMENOrdering Facility: [facility] Address: [address] [place] [address] Performed By: #### 5 7021-8 ####[facility] LABORATORYCLIA [id number] [address] [place] Platelet mean volume (Bld) [Entitic vol] 11.3 fL Normal 9.0-12.7 [facility] Comment on above: Order Comment: Speci men Type: BLOOD SPECIMENOrdering Facility: [facility] Address: [address] [place] [address] Performed By: #### 5 7021-8 ####[facility] LABORATORYCLIA [id number] [address] Platelets (Bld) [#/Vol] 238 10*3/uL Normal 150-400 [facility] Comment on above: Order Comment: Speci men Type: BLOOD SPECIMENOrdering Facility: [facility] Address: [address] [place] [address] Performed By: #### 5 7021-8 ####[facility] LABORATORYCLIA [id number] [address] [place] RBC (Bld) [#/Vol] 3.24 10*6/uL Low 4.20-6.00 [facility] Comment on above: Order Comment: Speci men Type: BLOOD SPECIMENOrdering Facility: [facility] Address: [address] [place] [address] Performed By: #### 5 7021-8 ####[facility] LABORATORYCLIA [id number] [place] [address] [place] WBC (Bld) [#/Vol] 8.76 10*3/uL Normal 3.70-11.00 [facility] Comment on above: Order Comment: Speci men Type: BLOOD SPECIMENOrdering Facility: [facility] Address: [address] [place] [address] Performed By: #### 5 7021-8 ####[facility] LABORATORYCLIA [id number] [address] [place] MRI BRAIN WO/W IVCONon 07-28 MRI BRAIN WO/W IVCON Normal [facility] Magnesium SerPl-mCncon 07-28 Magnesium [Mass/Vol] 2.5 mg/dL High 1.7-2.3 [facility] Comment on above: Order Comment: Speci men Type: BLOOD SPECIMENOrdering Facility: [facility] Address: [address] [place] [address] Performed By: #### 1 4338-8, 63629-4, 2777-1, 30565-5 ####[facility] LABORATORYCLIA [id number] [address] [place] NURSING PROGon 07-28-2021 NURSING PROG Normal [facility] NURSING PROG [facility] Phosphate SerPl-mCncon 07-28 Phosphate [Mass/Vol] 2.8 mg/dL Normal 2.7-4.8 [facility] Comment on above: Order Comment: Speci men Type: BLOOD SPECIMENOrdering Facility: [facility] Address: [address] [place] [address] Performed By: #### 1 4338-8, 14802-2, 7-1, 70770-0 ####[facility] LABORATORYCLIA [id number] [address] STATES [facility] Prealbumin [Mass/Vol]on 07-06 Prealbumin Nephelometry [Mass/Vol] 25 mg/dL Normal 17-36 [facility] Comment on above: Order Comment: Speci men Type: BLOOD SPECIMENOrdering Facility: [facility] Address: [address] [place] [address] Performed By: #### 1 4338-8, 66481-1, 2777-1, 49144-0 ####[facility] LABORATORYCLIA [id number] [address] [place] aPTT PPPon 07-28-2021 aPTT Coag (PPP) [Time] 53.0 s High 23.0-32.4 [facility] Comment on above: Order Comment: Speci men Type: BLOOD SPECIMENOrdering Facility: [facility] Address: [address] [place] [address] Performed By: #### 1 4979-9 ####[facility] LABORATORYCLIA [id number] [address] STATES [facility] aPTT Coag (PPP) [Time] 57.2 s High 23.0-32.4 [facility] Comment on above: Order Comment: Speci men Type: BLOOD SPECIMENOrdering Facility: [facility] Address: [address] [place] [address] Performed By: #### 1 4979-9 ####[facility] LABORATORYCLIA [id number] [address] [place] Bacteria CSF Culton 07-28-19 22 Bacteria identified Cx Nom (CSF) CULTURE, CSF: No growth 14 days GRAM STAIN: No organisms seen Rare Polymorphonuclear leukocytes Rare Red Blood Cells Gram stain performed on cytospun specimen. [facility] Comment on above: Performed By: #### 6 06-4 ####[facility] LABORATORYCLIA [id number] [address] Bacteria Spec Resp Culton Bacteria identified Respiratory culture Nom (Unsp spec) CULTURE, RESPIRATORY: Rare Normal respiratory chris present GRAM STAIN: No organisms seen Rare Polymorphonuclear leukocytes Rare Epithelial cells Normal [facility] Comment on above: Performed By: #### 3 2355-0 ####[facility] LABORATORYCLIA [id number] [address] OF [facility] CASE MANAGEMon 07-27-2021 CASE MANAGEM [facility] CBC W Auto Differential pane l (Bld)on 07-27-2021 Basophils (Bld) [#/Vol] 0.04 10*3/uL Normal <0.11 [facility] Comment on above: Order Comment: Speci men Type: BLOOD SPECIMENOrdering Facility: [facility] Address: [address] [place] [address] Performed By: #### 5 7021-8 ####[facility] LABORATORYCLIA [id number] [address] [place] Basophils/100 WBC (Bld) 0.4 % Normal [facility] Comment on above: Order Comment: Speci men Type: BLOOD SPECIMENOrdering Facility: [facility] Address: [address] [place] [address] Performed By: #### 5 7021-8 ####[facility] LABORATORYCLIA [id number] [address] Differential cell count method Nom (Bld) Auto Normal [facility] Comment on above: Order Comment: Speci men Type: BLOOD SPECIMENOrdering Facility: [facility] Address: [address] [place] [address] Performed By: #### 5 7021-8 ####[facility] LABORATORYCLIA [id number] [address] [place] Eosinophils (Bld) [#/Vol] 0.50 10*3/uL High <0.46 [facility] Comment on above: Order Comment: Speci men Type: BLOOD SPECIMENOrdering Facility: [facility] Address: [address] [address] Performed By: #### 5 7021-8 ####[facility] LABORATORYCLIA [id number] [address] STATES [facility] Eosinophils/100 WBC (Bld) 5.2 % Normal [facility] Comment on above: Order Comment: Speci men Type: BLOOD SPECIMENOrdering Facility: [facility] Address: [address] [place] [address] Performed By: #### 5 7021-8 ####[facility] LABORATORYCLIA [id number] [address] [place] Erythrocyte distribution width (RBC) [Ratio] 16.8 % High 11.5-15.0 [facility] Comment on above: Order Comment: Speci men Type: BLOOD SPECIMENOrdering Facility: [facility] Address: [address] [place] [address] Performed By: #### 5 7021-8 ####[facility] LABORATORYCLIA [id number] [address] Hematocrit (Bld) [Volume fraction] 29.8 % Low 39.0-51.0 [facility] Comment on above: Order Comment: Speci men Type: BLOOD SPECIMENOrdering Facility: [facility] Address: [address] [place] [address] Performed By: #### 5 7021-8 ####[facility] LABORATORYCLIA [id number] [address] [place] Hemoglobin (Bld) [Mass/Vol] 9.0 g/dL Low 13.0-17.0 [facility] Comment on above: Order Comment: Speci men Type: BLOOD SPECIMENOrdering Facility: [facility] Address: [address] [place] [address] Performed By: #### 5 7021-8 ####[facility] LABORATORYCLIA [id number] [address] [place] IMMATURE GRAN % 0.6 % Normal [facility] Comment on above: Order Comment: Speci men Type: BLOOD SPECIMENOrdering Facility: [facility] Address: [address] [place] [address] Performed By: #### 5 7021-8 ####[facility] LABORATORYCLIA [id number] [address] [facility] IMMATURE GRAN ABS 0.06 k/uL Normal <0.10 [facility] Comment on above: Order Comment: Speci men Type: BLOOD SPECIMENOrdering Facility: [facility] Address: [address] [place] [address] Performed By: #### 5 7021-8 ####[facility] LABORATORYCLIA [id number] [address] Lymphocytes (Bld) [#/Vol] 1.73 10*3/uL Normal 1.00-4.00 [facility] Comment on above: Order Comment: Speci men Type: BLOOD SPECIMENOrdering Facility: [facility] Address: [address] [place] [address] Performed By: #### 5 7021-8 ####[facility] LABORATORYCLIA [id number] [address] Lymphocytes/100 WBC (Bld) 17.9 % Normal [facility] Comment on above: Order Comment: Speci men Type: BLOOD SPECIMENOrdering Facility: [facility] Address: [address] [place] [address] Performed By: #### 5 7021-8 ####[facility] LABORATORYCLIA [id number] [address] MCH (RBC) [Entitic mass] 28.1 pg Normal 26.0-34.0 [facility] Comment on above: Order Comment: Speci men Type: BLOOD SPECIMENOrdering Facility: [facility] Address: [address] [place] [address] Performed By: #### 5 7021-8 ####[facility] LABORATORYCLIA [id number] [address] MCHC (RBC) [Mass/Vol] 30.2 g/dL Low 30.5-36.0 [facility] Comment on above: Order Comment: Speci men Type: BLOOD SPECIMENOrdering Facility: [facility] Address: [address] [place] [address] Performed By: #### 5 7021-8 ####[facility] LABORATORYCLIA [id number] [address] [place] MCV (RBC) [Entitic vol] 93.1 fL Normal 80.0-100.0 [facility] Comment on above: Order Comment: Speci men Type: BLOOD SPECIMENOrdering Facility: [facility] Address: [address] [place] [address] Performed By: #### 5 7021-8 ####[facility] LABORATORYCLIA [id number] [address] [place] Monocytes (Bld) [#/Vol] 0.59 10*3/uL Normal <0.87 [facility] Comment on above: Order Comment: Speci men Type: BLOOD SPECIMENOrdering Facility: [facility] Address: [address] [place] [address] Performed By: #### 5 7021-8 ####[facility] LABORATORYCLIA [id number] [address] [place] Monocytes/100 WBC (Bld) 6.1 % Normal [facility] Comment on above: Order Comment: Speci men Type: BLOOD SPECIMENOrdering Facility: [facility] Address: [address] [place] [address] Performed By: #### 5 7021-8 ####[facility] LABORATORYCLIA [id number] [place] [address] [place] Neutrophils (Bld) [#/Vol] 6.75 10*3/uL Normal 1.45-7.50 [facility] Comment on above: Order Comment: Speci men Type: BLOOD SPECIMENOrdering Facility: [facility] Address: [address] [place] [address] Performed By: #### 5 7021-8 ####[facility] LABORATORYCLIA [id number] [address] Neutrophils/100 WBC (Bld) 69.8 % Normal [facility] Comment on above: Order Comment: Speci men Type: BLOOD SPECIMENOrdering Facility: [facility] Address: [address] [place] [address] Performed By: #### 5 7021-8 ####[facility] LABORATORYCLIA [id number] [address] Nucleated RBC (Bld) [#/Vol] 10*3/uL Normal <0.01 [facility] Comment on above: Order Comment: Speci men Type: BLOOD SPECIMENOrdering Facility: [facility] Address: [address] [place] [address] Performed By: #### 5 7021-8 ####[facility] LABORATORYCLIA [id number] [address] Nucleated RBC/100 WBC (Bld) [Ratio] 0.0 /100 WBC Normal [facility] Comment on above: Order Comment: Speci men Type: BLOOD SPECIMENOrdering Facility: [facility] Address: [address] [place] [address] Performed By: #### 5 7021-8 ####[facility] LABORATORYCLIA [id number] [address] [place] Platelet mean volume (Bld) [Entitic vol] 11.3 fL Normal 9.0-12.7 [facility] Comment on above: Order Comment: Speci men Type: BLOOD SPECIMENOrdering Facility: [facility] Address: [address] [place] [address] Performed By: #### 5 7021-8 ####[facility] LABORATORYCLIA [id number] [address] [place] Platelets (Bld) [#/Vol] 227 10*3/uL Normal 150-400 [facility] Comment on above: Order Comment: Speci men Type: BLOOD SPECIMENOrdering Facility: [facility] Address: [address] [place] [address] Performed By: #### 5 7021-8 ####[facility] LABORATORYCLIA [id number] [address] [facility] RBC (Bld) [#/Vol] 3.20 10*6/uL Low 4.20-6.00 [facility] Comment on above: Order Comment: Speci men Type: BLOOD SPECIMENOrdering Facility: [facility] Address: [address] [place] [address] Performed By: #### 5 7021-8 ####[facility] LABORATORYCLIA [id number] [address] STATES [facility] WBC (Bld) [#/Vol] 9.67 10*3/uL Normal 3.70-11.00 [facility] Comment on above: Order Comment: Speci men Type: BLOOD SPECIMENOrdering Facility: [facility] Address: [address] [place] [address] Performed By: #### 5 7021-8 ####[facility] LABORATORYCLIA [id number] [address] [facility] CONSULT PROGon 07-27-2021 CONSULT PROG Normal [facility] CSF MANUAL DIFFon 07-27-2021 DIF TTL, CSF 100 cells counted Normal [facility] Comment on above: Order Comment: Speci men Type: CEREBROSPINAL FLUIDOrdering Facility: [facility] Address: [address] [place] [address] Performed By: #### L [id number], 94673-5, [id number] ####[facility] LABORATORYCLIA [id number] [address] LYMPH%, CSF 75 % Normal 50-90 [facility] Comment on above: Order Comment: Speci men Type: CEREBROSPINAL FLUIDOrdering Facility: [facility] Address: [address] [place] [address] Performed By: #### L [id number], 10215-6, [id number] ####[facility]ORATORYCLIA [id number] [place] [address] [place] MONO%, CSF 22 % Normal 10-50 [facility] Comment on above: Order Comment: Speci men Type: CEREBROSPINAL FLUIDOrdering Facility: [facility] Address: [address] [place] [address] Performed By: #### L [id number], 40318-8, [id number] ####[facility]ORATORYCLIA [id number] [place] [address] [place] NEUT%, CSF 2 % Normal 0-3 [facility] Comment on above: Order Comment: Speci men Type: CEREBROSPINAL FLUIDOrdering Facility: [facility] Address: [address] [place] [address] Performed By: #### L [id number], 86222-7, [id number] ####[facility]ATORYCLIA [id number] [address] [facility] OTHER CL%, CSF 1 % Normal [facility] Comment on above: Order Comment: Speci men Type: CEREBROSPINAL FLUIDOrdering Facility: [facility] Address: [address] [place] [address] Result Comment: Path ologist review of microscopy results to follow Performed By: #### L [id number], 26881-0, [id number] ####[facility]ORATORYCLIA [id number] [address] OF [place] CSF PATHOLOGIST INTERP (LAB REFLEX ORDER-NO BILL)on 07-27-2021 CSF STAFF REVIEW Negative Normal [facility] Comment on above: Order Comment: Speci men Type: CEREBROSPINAL FLUIDOrdering Facility: [facility] Address: [address] [place] [address] Performed By: #### L [id number], 88000-5, [id number] ####[facility]ORATORYCLIA [id number] [address] Pathologist name Reviewed by Amador Stevens MD [facility] Comment on above: Order Comment: Speci men Type: CEREBROSPINAL FLUIDOrdering Facility: [facility] Address: [address] [address] Performed By: #### L [id number], 00368-5, [id number] ####[facility]ORATORYCLIA [id number] [address] [facility] Cell count panel (CSF)on Clarity (CSF) Clear Normal Clear [facility] Comment on above: Order Comment: Speci men Type: CEREBROSPINAL FLUIDOrdering Facility: [facility] Address: [address] [place] [address] Performed By: #### L [id number], 23814-6, [id number] ####[facility]ORATORYCLIA [id number] [address] Clarity (Unsp spec) Not Indicated Normal Clear [facility] Comment on above: Order Comment: Speci men Type: CEREBROSPINAL FLUIDOrdering Facility: [facility] Address: [address] [place] [address] Performed By: #### L [id number], 86554-6, [id number] ####[facility]ORATORYCLIA [id number] [address] Color (CSF) Colorless Normal Colorless [facility] Comment on above: Order Comment: Speci men Type: CEREBROSPINAL FLUIDOrdering Facility: [facility] Address: [address] [place] [address] Performed By: #### L [id number], 11033-2, [id number] ####[facility]ORATORYCLIA [id number] [address] Color (Spun CSF) Not Indicated Normal Colorless [facility] Comment on above: Order Comment: Speci men Type: CEREBROSPINAL FLUIDOrdering Facility: [facility] Address: [address] [place] [address] Performed By: #### L [id number], 08237-2, [id number] ####[facility]ORATORYCLIA [id number] [address] CSF TUBE NUMBER Sterile Container Normal [facility] Comment on above: Order Comment: Johni men Type: CEREBROSPINAL FLUIDOrdering Facility: [facility] Address: [address] [place] [address] Performed By: #### L [id number], 49369-7, [id number] ####[facility] LABORATORYCLIA [id number] [address] OF [facility] RBC Manual cnt (CSF) [#/Vol] 39 cells/uL High 0-5 [facility] Comment on above: Order Comment: Speci men Type: CEREBROSPINAL FLUIDOrdering Facility: [facility] Address: [address] [place] [address] Performed By: #### L [id number], 13200-3, [id number] ####[facility] LABORATORYCLIA [id number] [address] WBC Manual cnt (CSF) [#/Vol] 14 cells/uL High 0-5 [facility] Comment on above: Order Comment: Johni men Type: CEREBROSPINAL FLUIDOrdering Facility: [facility] Address: [address] [place] [address] Performed By: #### L [id number], 97719-4, [id number] ####[facility] LABORATORYCLIA [id number] [address] [place] Glucose CSF-mCncon 2 Glucose (CSF) [Mass/Vol] 64 mg/dL Normal 40-70 [facility] Comment on above: Order Comment: Johni men Type: CEREBROSPINAL FLUIDOrdering Facility: [facility] Address: [address] [place] [address] Result Comment: Lumb ar CSF glucose values of healthy patients are approximately 60% of the plasma values and must always be compared with a concurrently measured plasma value for adequate clinical interpretation.References: 1. Glucose HK (GLUC3) [package insert V 12.0 [place]]. [employer], [place], [place]. September 2015. 2. Michelle Moore, Loki HGarfield (2015). Chapter 7: Glucose and Lactate. Marianela Rothman.(eds.), Cerebrospinal Fluid in Clinical Neurology. [place]: [employer]. Performed By: #### 2 342-4, 2880-3 ####[facility] LABORATORYCLIA [id number] [place] [address] [place] NUTRITIONon 07-27-2021 NUTRITION Normal [facility] Prot CSF-mCncon 07-27-2021 Protein (CSF) [Mass/Vol] 58 mg/dL High 15-45 [facility] Comment on above: Order Comment: Speci men Type: CEREBROSPINAL FLUIDOrdering Facility: [facility] Address: [address] [place] [address] Performed By: #### 2 342-4, 2880-3 ####[facility] LABORATORYCLIA [id number] [address] aPTT PPPon 07-27-2021 aPTT Coag (PPP) [Time] 68.4 s High 23.0-32.4 [facility] Comment on above: Order Comment: Speci men Type: BLOOD SPECIMENOrdering Facility: [facility] Address: [address] [place] [address] Performed By: #### 1 4979-9 ####[facility] LABORATORYCLIA [id number] [address] aPTT Coag (PPP) [Time] 51.3 s High 23.0-32.4 [facility] Comment on above: Order Comment: Speci men Type: BLOOD SPECIMENOrdering Facility: [facility] Address: [address] [place] [address] Performed By: #### 1 4979-9 ####[facility] LABORATORYCLIA [id number] [address] ALLIED HEALTHon 07-26-2021 ALLIED HEALTH HNO ID: [id number] Author: Stephanie Maldonado, balcony worker Service: Radiology Author Type: Respiratory Therapy Technician Type: Allied Health Filed: 07/26/2021 4:10 PM Note Text: Spoke with nurse. Pt getting new EVD today. Try tomorrow. Normal [facility] Bacteria CSF Culton 07-27-19 22 Bacteria identified Cx Nom (CSF) Abnormal [facility] Comment on above: Performed By: #### 6 06-4 ####[facility] LABORATORYCLIA [id number] [place] [address] [place] Basic metabolic 2000 panelon 07-26-2021 Anion gap [Moles/Vol] 6 mmol/L Low 9-18 [facility] Comment on above: Order Comment: Speci men Type: BLOOD SPECIMENOrdering Facility: [facility] Address: [address] [place] [address] Performed By: #### 2 4321-2 ####[facility] LABORATORYCLIA [id number] [place] [address] [place] Calcium [Mass/Vol] 9.2 mg/dL Normal 8.5-10.2 [facility] Comment on above: Order Comment: Speci men Type: BLOOD SPECIMENOrdering Facility: [facility] Address: [address] [place] [address] Performed By: #### 2 4321-2 ####[facility] LABORATORYCLIA [id number] [place] [address] [place] Chloride [Moles/Vol] 99 mmol/L Normal 97-105 [facility] Comment on above: Order Comment: Speci men Type: BLOOD SPECIMENOrdering Facility: [facility] Address: [address] [place] [address] Performed By: #### 2 4321-2 ####[facility] LABORATORYCLIA [id number] [place] [address] [place] CO2 [Moles/Vol] 32 mmol/L High 22-30 [facility] Comment on above: Order Comment: Speci men Type: BLOOD SPECIMENOrdering Facility: [facility] Address: [address] [place] [address] Performed By: #### 2 4321-2 ####[facility] LABORATORYCLIA [id number] [address] [place] Creatinine [Mass/Vol] 0.74 mg/dL Normal 0.73-1.22 [facility] Comment on above: Order Comment: Shira feldman Type: BLOOD SPECIMENOrdering Facility: [facility] Address: [address] [address] Performed By: #### 2 4321-2 ####[facility] LABORATORYIA [id number] [address] ESTIMATED GLOMERULAR FILTRATION RATE 98 mL/min/1.73m??? Normal >=60 [facility] Comment on above: Order Comment: Shira feldman Type: BLOOD SPECIMENOrdering Facility: [facility] Address: [address] [place] [address] Result Comment: Luzmaria mated Glomerular Filtration Rate [...] actual GFR. Performed By: #### 2 4321-2 ####[facility] [id number] [address] [place] Glucose [Mass/Vol] 126 mg/dL High 74-99 [facility] Comment on above: Order Comment: Shira feldman Type: BLOOD SPECIMENOrdering Facility: [facility] Address: [address] [place] [address] Result Comment: The [place] Diabetes Association (ADA) provides guidance for cutoff [...] Standards of Medical Care in Diabetes 2016, [place] [employer] Association. Diabetes Care. 2016.39(Suppl 1). Performed By: #### 2 4321-2 ####[facility] LABORATORYCLIA [id number] [address] STATES OF [facility] Potassium [Moles/Vol] 4.2 mmol/L Normal 3.7-5.1 [facility] Comment on above: Order Comment: Speci men Type: BLOOD SPECIMENOrdering Facility: [facility] Address: [address] [place] [address] Performed By: #### 2 4321-2 ####[facility] LABORATORYCLIA [id number] [address] STATES [facility] Sodium [Moles/Vol] 137 mmol/L Normal 136-144 [facility] Comment on above: Order Comment: Speci men Type: BLOOD SPECIMENOrdering Facility: [facility] Address: [address] [place] [address] Performed By: #### 2 4321-2 ####[facility] LABORATORYCLIA [id number] [address] STATES [facility] Urea nitrogen [Mass/Vol] 36 mg/dL High 9-24 [facility] Comment on above: Order Comment: Speci men Type: BLOOD SPECIMENOrdering Facility: [facility] Address: [address] [place] [address] Performed By: #### 2 4321-2 ####[facility] LABORATORYCLIA [id number] [address] [place] CBC W Auto Differential pane l (Bld)on 07-26-2021 Basophils (Bld) [#/Vol] 0.04 10*3/uL Normal <0.11 [facility] Comment on above: Order Comment: Speci men Type: BLOOD SPECIMENOrdering Facility: [facility] Address: [address] [place] [address] Performed By: #### 5 7021-8 ####[facility] LABORATORYCLIA [id number] [address] Basophils/100 WBC (Bld) 0.4 % Normal [facility] Comment on above: Order Comment: Speci men Type: BLOOD SPECIMENOrdering Facility: [facility] Address: [address] [place] [address] Performed By: #### 5 7021-8 ####[facility] LABORATORYCLIA [id number] [address] [place] Differential cell count method Nom (Bld) Auto Normal [facility] Comment on above: Order Comment: Speci men Type: BLOOD SPECIMENOrdering Facility: [facility] Address: [address] [place] [address] Performed By: #### 5 7021-8 ####[facility] LABORATORYCLIA [id number] [address] [place] Eosinophils (Bld) [#/Vol] 0.63 10*3/uL High <0.46 [facility] Comment on above: Order Comment: Speci men Type: BLOOD SPECIMENOrdering Facility: [facility] Address: [address] [place] [address] Performed By: #### 5 7021-8 ####[facility] LABORATORYCLIA [id number] [address] [place] Eosinophils/100 WBC (Bld) 5.8 % Normal [facility] Comment on above: Order Comment: Speci men Type: BLOOD SPECIMENOrdering Facility: [facility] Address: [address] [place] [address] Performed By: #### 5 7021-8 ####[facility] LABORATORYCLIA [id number] [address] [place] Erythrocyte distribution width (RBC) [Ratio] 16.8 % High 11.5-15.0 [facility] Comment on above: Order Comment: Speci men Type: BLOOD SPECIMENOrdering Facility: [facility] Address: [address] [place] [address] Performed By: #### 5 7021-8 ####[facility] LABORATORYCLIA [id number] [address] Hematocrit (Bld) [Volume fraction] 31.2 % Low 39.0-51.0 [facility] Comment on above: Order Comment: Speci men Type: BLOOD SPECIMENOrdering Facility: [facility] Address: [address] [place] [address] Performed By: #### 5 7021-8 ####[facility] LABORATORYCLIA [id number] [address] Hemoglobin (Bld) [Mass/Vol] 9.1 g/dL Low 13.0-17.0 [facility] Comment on above: Order Comment: Speci men Type: BLOOD SPECIMENOrdering Facility: [facility] Address: [address] [place] [address] Performed By: #### 5 7021-8 ####[facility] LABORATORYCLIA [id number] [address] IMMATURE GRAN % 0.6 % Normal [facility] Comment on above: Order Comment: Speci men Type: BLOOD SPECIMENOrdering Facility: [facility] Address: [address] [place] [address] Performed By: #### 5 7021-8 ####[facility] LABORATORYCLIA [id number] [address] IMMATURE GRAN ABS 0.07 k/uL Normal <0.10 [facility] Comment on above: Order Comment: Speci men Type: BLOOD SPECIMENOrdering Facility: [facility] Address: [address] [place] [address] Performed By: #### 5 7021-8 ####[facility] LABORATORYCLIA [id number] [address] Lymphocytes (Bld) [#/Vol] 2.16 10*3/uL Normal 1.00-4.00 [facility] Comment on above: Order Comment: Speci men Type: BLOOD SPECIMENOrdering Facility: [facility] Address: [address] [place] [address] Performed By: #### 5 7021-8 ####[facility] LABORATORYCLIA [id number] [address] Lymphocytes/100 WBC (Bld) 20.0 % Normal [facility] Comment on above: Order Comment: Speci men Type: BLOOD SPECIMENOrdering Facility: [facility] Address: [address] [place] [address] Performed By: #### 5 7021-8 ####[facility] LABORATORYCLIA [id number] [address] STATES [facility] MCH (RBC) [Entitic mass] 27.7 pg Normal 26.0-34.0 [facility] Comment on above: Order Comment: Speci men Type: BLOOD SPECIMENOrdering Facility: [facility] Address: [address] [place] [address] Performed By: #### 5 7021-8 ####[facility] LABORATORYCLIA [id number] [address] STATES [facility] MCHC (RBC) [Mass/Vol] 29.2 g/dL Low 30.5-36.0 [facility] Comment on above: Order Comment: Speci men Type: BLOOD SPECIMENOrdering Facility: [facility] Address: [address] [place] [address] Performed By: #### 5 7021-8 ####[facility] LABORATORYCLIA [id number] [address] MCV (RBC) [Entitic vol] 95.1 fL Normal 80.0-100.0 [facility] Comment on above: Order Comment: Speci men Type: BLOOD SPECIMENOrdering Facility: [facility] Address: [address] [place] [address] Performed By: #### 5 7021-8 ####[facility] LABORATORYCLIA [id number] [address] Monocytes (Bld) [#/Vol] 0.63 10*3/uL Normal <0.87 [facility] Comment on above: Order Comment: Speci men Type: BLOOD SPECIMENOrdering Facility: [facility] Address: [address] [place] [address] Performed By: #### 5 7021-8 ####[facility] LABORATORYCLIA [id number] [address] [place] Monocytes/100 WBC (Bld) 5.8 % Normal [facility] Comment on above: Order Comment: Speci men Type: BLOOD SPECIMENOrdering Facility: [facility] Address: [address] [place] [address] Performed By: #### 5 7021-8 ####[facility]ORATORYCLIA [id number] [address] [place] Neutrophils (Bld) [#/Vol] 7.25 10*3/uL Normal 1.45-7.50 [facility] Comment on above: Order Comment: Speci men Type: BLOOD SPECIMENOrdering Facility: [facility] Address: [address] [place] [address] Performed By: #### 5 7021-8 ####[facility] LABORATORYCLIA [id number] [address] [place] Neutrophils/100 WBC (Bld) 67.4 % Normal [facility] Comment on above: Order Comment: Speci men Type: BLOOD SPECIMENOrdering Facility: [facility] Address: [address] [place] [address] Performed By: #### 5 7021-8 ####[facility]ATORYCLIA [id number] [address] [place] Nucleated RBC (Bld) [#/Vol] 10*3/uL Normal <0.01 [facility] Comment on above: Order Comment: Speci men Type: BLOOD SPECIMENOrdering Facility: [facility] Address: [address] [place] [address] Performed By: #### 5 7021-8 ####[facility]ATORYCLIA [id number] [address] [place] Nucleated RBC/100 WBC (Bld) [Ratio] 0.0 /100 WBC Normal [facility] Comment on above: Order Comment: Speci men Type: BLOOD SPECIMENOrdering Facility: [facility] Address: [address] [place] [address] Performed By: #### 5 7021-8 ####[facility] LABORATORYCLIA [id number] [place] [address] [place] Platelet mean volume (Bld) [Entitic vol] 11.2 fL Normal 9.0-12.7 [facility] Comment on above: Order Comment: Speci men Type: BLOOD SPECIMENOrdering Facility: [facility] Address: [address] [place] [address] Performed By: #### 5 7021-8 ####[facility] LABORATORYCLIA [id number] [address] [place] Platelets (Bld) [#/Vol] 245 10*3/uL Normal 150-400 [facility] Comment on above: Order Comment: Speci men Type: BLOOD SPECIMENOrdering Facility: [facility] Address: [address] [place] [address] Performed By: #### 5 7021-8 ####[facility] LABORATORYCLIA [id number] [address] [place] RBC (Bld) [#/Vol] 3.28 10*6/uL Low 4.20-6.00 [facility] Comment on above: Order Comment: Speci men Type: BLOOD SPECIMENOrdering Facility: [facility] Address: [address] [place] [address] Performed By: #### 5 7021-8 ####[facility] LABORATORYCLIA [id number] [address] [place] WBC (Bld) [#/Vol] 10.78 10*3/uL Normal 3.70-11.00 [facility] Comment on above: Order Comment: Speci men Type: BLOOD SPECIMENOrdering Facility: [facility] Address: [address] [place] [address] Performed By: #### 5 7021-8 ####[facility]ATORYCLIA [id number] [address] CSF MANUAL DIFFon 07-26-2021 DIF TTL, CSF 100 cells counted Normal [facility] Comment on above: Order Comment: Speci men Type: CEREBROSPINAL FLUIDOrdering Facility: [facility] Address: [address] [place] [address] Performed By: #### 3 4563-7, [id number], [id number] ####[facility]ATORYCLIA [id number] [address] [place] LYMPH%, CSF 26 % Low 50-90 [facility] Comment on above: Order Comment: Speci men Type: CEREBROSPINAL FLUIDOrdering Facility: [facility] Address: [address] [place] [address] Performed By: #### 3 4563-7, [id number], [id number] ####[facility] LABORATORYCLIA [id number] [address] [place] MACRO%, CSF 10 % High <1 [facility] Comment on above: Order Comment: Speci men Type: CEREBROSPINAL FLUIDOrdering Facility: [facility] Address: [address] [place] [address] Performed By: #### 3 4563-7, [id number], [id number] ####[facility]ORYCLIA [id number] [address] [place] MONO%, CSF 20 % Normal 10-50 [facility] Comment on above: Order Comment: Speci men Type: CEREBROSPINAL FLUIDOrdering Facility: [facility] Address: [address] [place] [address] Performed By: #### 3 4563-7, [id number], [id number] ####[facility]ATORYCLIA [id number] [address] [place] NEUT%, CSF 40 % High 0-3 [facility] Comment on above: Order Comment: Speci men Type: CEREBROSPINAL FLUIDOrdering Facility: [facility] Address: [address] [place] [address] Performed By: #### 3 4563-7, [id number], [id number] ####[facility] LABORATORYCLIA [id number] [address] OF [facility] OTHER CL%, CSF 2 % Normal [facility] Comment on above: Order Comment: Speci men Type: CEREBROSPINAL FLUIDOrdering Facility: [facility] Address: [address] [place] [address] Result Comment: Path review to follow. Performed By: #### 3 4563-7, [id number], [id number] ####[facility] LABORATORYCLIA [id number] [address] [place] REAC LYMPH %, CSF 2 % Normal [facility] Comment on above: Order Comment: Speci men Type: CEREBROSPINAL FLUIDOrdering Facility: [facility] Address: [address] [place] [address] Performed By: #### 3 4563-7, [id number], [id number] ####[facility] LABORATORYCLIA [id number] [address] CSF PATHOLOGIST INTERP (LAB REFLEX ORDER-NO BILL)on 07-26-2021 CSF STAFF REVIEW Negative for maligna nt cells. Rare bacteria present, cocci in pairs and chains. Correlation with CSF cultures is recommended. Normal [facility] Comment on above: Order Comment: Speci men Type: CEREBROSPINAL FLUIDOrdering Facility: [facility] Address: [address] [place] [address] Performed By: #### 3 4563-7, [id number], [id number] ####[facility] LABORATORYCLIA [id number] [address] Pathologist name Reviewed by Amador Stevens MD [facility] Comment on above: Order Comment: Speci men Type: CEREBROSPINAL FLUIDOrdering Facility: [facility] Address: [address] [place] [address] Performed By: #### 3 4563-7, [id number], [id number] ####[facility]ATORYCLIA [id number] [address] Cell count panel (CSF)on Clarity (CSF) Slightly Cloudy Abnormal Clear [facility] Comment on above: Order Comment: Speci men Type: CEREBROSPINAL FLUIDOrdering Facility: [facility] Address: [address] [place] [address] Performed By: #### 3 4563-7, [id number], [id number] ####[facility]ATORYCLIA [id number] [address] [facility] Clarity (Unsp spec) Clear Normal [facility] Comment on above: Order Comment: Speci men Type: CEREBROSPINAL FLUIDOrdering Facility: [facility] Address: [address] [place] [address] Performed By: #### 3 4563-7, [id number], [id number] ####[facility]ATORYCLIA [id number] [address] [facility] Color (CSF) Colorless Normal Colorless [facility] Comment on above: Order Comment: Speci men Type: CEREBROSPINAL FLUIDOrdering Facility: [facility] Address: [address] [place] [address] Performed By: #### 3 4563-7, [id number], [id number] ####[facility]ATORYCLIA [id number] [address] Color (Spun CSF) Not Indicated Normal Colorless [facility] Comment on above: Order Comment: Speci men Type: CEREBROSPINAL FLUIDOrdering Facility: [facility] Address: [address] [place] [address] Performed By: #### 3 4563-7, [id number], [id number] ####[facility]ATORYCLIA [id number] [address] [place] CSF TUBE NUMBER Sterile Container Normal [facility] Comment on above: Order Comment: Speci men Type: CEREBROSPINAL FLUIDOrdering Facility: [facility] Address: [address] [place] [address] Performed By: #### 3 4563-7, [id number], [id number] ####[facility] LABORATORYCLIA [id number] [address] [place] RBC Manual cnt (CSF) [#/Vol] 1 cells/uL Normal 0-5 [facility] Comment on above: Order Comment: Speci men Type: CEREBROSPINAL FLUIDOrdering Facility: [facility] Address: [address] [place] [address] Performed By: #### 3 4563-7, [id number], [id number] ####[facility] LABORATORYCLIA [id number] [address] [place] [facility] WBC Manual cnt (CSF) [#/Vol] 50 cells/uL High 0-5 [facility] Comment on above: Order Comment: Speci men Type: CEREBROSPINAL FLUIDOrdering Facility: [facility] Address: [address] [place] [address] Performed By: #### 3 4563-7, [id number], [id number] ####[facility] LABORATORYCLIA [id number] [address] [place] Glucose CSF-mCncon 2 Glucose (CSF) [Mass/Vol] 64 mg/dL Normal 40-70 [facility] Comment on above: Order Comment: Speci men Type: CEREBROSPINAL FLUIDOrdering Facility: [facility] Address: [address] [place] [address] Result Comment: Lumb ar CSF glucose values of healthy patients are approximately 60% of the plasma values and must always be compared with a concurrently measured plasma value for adequate clinical interpretation.References: 1. Glucose HK (GLUC3) [package insert V 12.0 [place]]. [employer], [place], [place]. September 2015. 2. Teresa HGarfield, Loki, H. (2015). Chapter 7: Glucose and Lactate. FGarfield Alcocer al.(eds.), Cerebrospinal Fluid in Clinical Neurology. [place]: [employer]. Performed By: #### 2 880-3, 234-4 ####[facility] LABORATORYCLIA [id number] [address] Magnesium SerPl-mCncon 07-26 Magnesium [Mass/Vol] 2.3 mg/dL Normal 1.7-2.3 [facility] Comment on above: Order Comment: Speci men Type: BLOOD SPECIMENOrdering Facility: [facility] Address: [address] [place] [address] Performed By: #### 1 9123-9, 2777-1, 3016-3 ####[facility] LABORATORYCLIA [id number] [address] NURSING PROGon 07-26-2021 NURSING PROG Normal [facility] Phosphate SerPl-mCncon 07-26 Phosphate [Mass/Vol] 2.6 mg/dL Low 2.7-4.8 [facility] Comment on above: Order Comment: Speci men Type: BLOOD SPECIMENOrdering Facility: [facility] Address: [address] [place] [address] Performed By: #### 1 9123-9, 2777-1, 6-3 ####[facility] LABORATORYCLIA [id number] [address] Prot CSF-mCncon 07-26-2021 Protein (CSF) [Mass/Vol] 64 mg/dL High 15-45 [facility] Comment on above: Order Comment: Speci men Type: CEREBROSPINAL FLUIDOrdering Facility: [facility] Address: [address] [place] [address] Performed By: #### 2 880-3, 2341-4 ####[facility] LABORATORYCLIA [id number] [address] THERAPY NTon 07-26-2021 THERAPY NT Normal [facility] TSH SerPl-aCncon 07-26-2021 TSH Qn 1.470 m[IU]/L Normal 0.270-4.200 [facility] Comment on above: Order Comment: Speci men Type: BLOOD SPECIMENOrdering Facility: [facility] Address: [address] [place] [address] Performed By: #### 1 9123-9, 2777-1, 3016-3 ####[facility] LABORATORYCLIA [id number] [address] VITAMIN B12 BLOODon 07-27-19 Cobalamin (Vitamin B12) [Mass/Vol] 934 pg/mL Normal 232-1,245 [facility] Comment on above: Order Comment: Speci men Type: BLOOD SPECIMENOrdering Facility: [facility] Address: [address] [place] [address] Performed By: #### B 12 ####[facility]ITALCLIA [id number] [address] aPTT PPPon 07-26-2021 aPTT Coag (PPP) [Time] 53.6 s High 23.0-32.4 [facility] Comment on above: Order Comment: Speci men Type: BLOOD SPECIMENOrdering Facility: [facility] Address: [address] [place] [address] Performed By: #### 1 4979-9 ####[facility] LABORATORYCLIA [id number] [address] aPTT Coag (PPP) [Time] 44.9 s High 23.0-32.4 [facility] Comment on above: Order Comment: Speci men Type: BLOOD SPECIMENOrdering Facility: [facility] Address: [address] [place] [address] Performed By: #### 1 4979-9 ####[facility] LABORATORYCLIA [id number] [address] ALLIED HEALTHon 07-25-2021 ALLIED HEALTH HNO ID: [id number] Author: RT Rajwinder(R) Service: Radiology Author Type: Technologist Type: Allied Health Filed: 07/25/2021 1:37 PM Note Text: Called floor for MRI screening form [id number] Normal [facility] Bacteria Bld Culton 07-26-19 Bacteria identified Cx Nom (Bld) CULTURE, BLOOD: No growth 5 days Normal [facility] Comment on above: Performed By: #### 6 00-7 ####[facility] LABORATORYCLIA [id number] [address] Bacteria identified Cx Nom (Bld) CULTURE, BLOOD: No growth 5 days Normal [facility] Comment on above: Performed By: #### 6 00-7 ####[facility] LABORATORYCLIA [id number] [address] CASE MANAGEMon 07-25-2021 CASE MANAGEM Normal [facility] CBC W Auto Differential pane l (Bld)on 07-25-2021 Basophils (Bld) [#/Vol] 0.06 10*3/uL Normal <0.11 [facility] Comment on above: Order Comment: Speci men Type: BLOOD SPECIMENOrdering Facility: [facility] Address: [address] [place] [address] Performed By: #### 5 7021-8 ####[facility] LABORATORYCLIA [id number] [address] Basophils/100 WBC (Bld) 0.6 % Normal [facility] Comment on above: Order Comment: Speci men Type: BLOOD SPECIMENOrdering Facility: [facility] Address: [address] [place] [address] Performed By: #### 5 7021-8 ####[facility] LABORATORYCLIA [id number] [address] [place] [facility] Differential cell count method Nom (Bld) Auto Normal [facility] Comment on above: Order Comment: Speci men Type: BLOOD SPECIMENOrdering Facility: [facility] Address: [address] [address] Performed By: #### 5 7021-8 ####[facility] LABORATORYCLIA [id number] [address] [place] Eosinophils (Bld) [#/Vol] 0.26 10*3/uL Normal <0.46 [facility] Comment on above: Order Comment: Speci men Type: BLOOD SPECIMENOrdering Facility: [facility] Address: [address] [place] [address] Performed By: #### 5 7021-8 ####[facility] LABORATORYCLIA [id number] [address] [place] Eosinophils/100 WBC (Bld) 2.5 % Normal [facility] Comment on above: Order Comment: Speci men Type: BLOOD SPECIMENOrdering Facility: [facility] Address: [address] [place] [address] Performed By: #### 5 7021-8 ####[facility] LABORATORYCLIA [id number] [address] Erythrocyte distribution width (RBC) [Ratio] 16.9 % High 11.5-15.0 [facility] Comment on above: Order Comment: Speci men Type: BLOOD SPECIMENOrdering Facility: [facility] Address: [address] [place] [address] Performed By: #### 5 7021-8 ####[facility] LABORATORYCLIA [id number] [address] [place] Hematocrit (Bld) [Volume fraction] 29.6 % Low 39.0-51.0 [facility] Comment on above: Order Comment: Speci men Type: BLOOD SPECIMENOrdering Facility: [facility] Address: [address] [place] [address] Performed By: #### 5 7021-8 ####[facility] LABORATORYCLIA [id number] [address] [place] Hemoglobin (Bld) [Mass/Vol] 8.8 g/dL Low 13.0-17.0 [facility] Comment on above: Order Comment: Speci men Type: BLOOD SPECIMENOrdering Facility: [facility] Address: [address] [address] Performed By: #### 5 7021-8 ####[facility] LABORATORYCLIA [id number] [address] IMMATURE GRAN % 0.6 % Normal [facility] Comment on above: Order Comment: Speci men Type: BLOOD SPECIMENOrdering Facility: [facility] Address: [address] [place] [address] Performed By: #### 5 7021-8 ####[facility] LABORATORYCLIA [id number] [address] IMMATURE GRAN ABS 0.06 k/uL Normal <0.10 [facility] Comment on above: Order Comment: Speci men Type: BLOOD SPECIMENOrdering Facility: [facility] Address: [address] [place] [address] Performed By: #### 5 7021-8 ####[facility] LABORATORYCLIA [id number] [address] Lymphocytes (Bld) [#/Vol] 2.15 10*3/uL Normal 1.00-4.00 [facility] Comment on above: Order Comment: Speci men Type: BLOOD SPECIMENOrdering Facility: [facility] Address: [address] [place] [address] Performed By: #### 5 7021-8 ####[facility] LABORATORYCLIA [id number] [address] Lymphocytes/100 WBC (Bld) 20.7 % Normal [facility] Comment on above: Order Comment: Speci men Type: BLOOD SPECIMENOrdering Facility: [facility] Address: [address] [place] [address] Performed By: #### 5 7021-8 ####[facility] LABORATORYCLIA [id number] [address] [place] MCH (RBC) [Entitic mass] 28.2 pg Normal 26.0-34.0 [facility] Comment on above: Order Comment: Speci men Type: BLOOD SPECIMENOrdering Facility: [facility] Address: [address] [place] [address] Performed By: #### 5 7021-8 ####[facility] LABORATORYCLIA [id number] [address] MCHC (RBC) [Mass/Vol] 29.7 g/dL Low 30.5-36.0 [facility] Comment on above: Order Comment: Speci men Type: BLOOD SPECIMENOrdering Facility: [facility] Address: [address] [place] [address] Performed By: #### 5 7021-8 ####[facility] LABORATORYCLIA [id number] [address] MCV (RBC) [Entitic vol] 94.9 fL Normal 80.0-100.0 [facility] Comment on above: Order Comment: Speci men Type: BLOOD SPECIMENOrdering Facility: [facility] Address: [address] [place] [address] Performed By: #### 5 7021-8 ####[facility] LABORATORYCLIA [id number] [address] Monocytes (Bld) [#/Vol] 0.62 10*3/uL Normal <0.87 [facility] Comment on above: Order Comment: Speci men Type: BLOOD SPECIMENOrdering Facility: [facility] Address: [address] [place] [address] Performed By: #### 5 7021-8 ####[facility] LABORATORYCLIA [id number] [address] Monocytes/100 WBC (Bld) 6.0 % Normal [facility] Comment on above: Order Comment: Speci men Type: BLOOD SPECIMENOrdering Facility: [facility] Address: [address] [place] [address] Performed By: #### 5 7021-8 ####[facility] LABORATORYCLIA [id number] [place] [address] [place] Neutrophils (Bld) [#/Vol] 7.25 10*3/uL Normal 1.45-7.50 [facility] Comment on above: Order Comment: Speci men Type: BLOOD SPECIMENOrdering Facility: [facility] Address: [address] [place] [address] Performed By: #### 5 7021-8 ####[facility] LABORATORYCLIA [id number] [address] [place] Neutrophils/100 WBC (Bld) 69.6 % Normal [facility] Comment on above: Order Comment: Speci men Type: BLOOD SPECIMENOrdering Facility: [facility] Address: [address] [place] [address] Performed By: #### 5 7021-8 ####[facility] LABORATORYCLIA [id number] [address] [place] Nucleated RBC (Bld) [#/Vol] 10*3/uL Normal <0.01 [facility] Comment on above: Order Comment: Speci men Type: BLOOD SPECIMENOrdering Facility: [facility] Address: [address] [place] [address] Performed By: #### 5 7021-8 ####[facility] LABORATORYCLIA [id number] [address] [place] Nucleated RBC/100 WBC (Bld) [Ratio] 0.0 /100 WBC Normal [facility] Comment on above: Order Comment: Speci men Type: BLOOD SPECIMENOrdering Facility: [facility] Address: [address] [place] [address] Performed By: #### 5 7021-8 ####[facility] LABORATORYCLIA [id number] [place] [address] [place] Platelet mean volume (Bld) [Entitic vol] 11.3 fL Normal 9.0-12.7 [facility] Comment on above: Order Comment: Speci men Type: BLOOD SPECIMENOrdering Facility: [facility] Address: [address] [place] [address] Performed By: #### 5 7021-8 ####[facility] LABORATORYCLIA [id number] [address] [place] [facility] Platelets (Bld) [#/Vol] 243 10*3/uL Normal 150-400 [facility] Comment on above: Order Comment: Johni francia Type: BLOOD SPECIMENOrdering Facility: [facility] Address: [address] [place] [address] Performed By: #### 5 7021-8 ####[facility] LABORATORYCLIA [id number] [place] [address] [place] RBC (Bld) [#/Vol] 3.12 10*6/uL Low 4.20-6.00 [facility] Comment on above: Order Comment: Johni francia Type: BLOOD SPECIMENOrdering Facility: [facility] Address: [address] [place] [address] Performed By: #### 5 7021-8 ####[facility] LABORATORYCLIA [id number] [address] [facility] WBC (Bld) [#/Vol] 10.40 10*3/uL Normal 3.70-11.00 [facility] Comment on above: Order Comment: Shira feldman Type: BLOOD SPECIMENOrdering Facility: [facility] Address: [address] [place] [address] Performed By: #### 5 7021-8 ####[facility] LABORATORYCLIA [id number] [address] [place] CONSULT PROGon 07-25-2021 CONSULT PROG Normal [facility] MYCOPLASMA PNEUM IGMon 07-25 M. PNEUMO IGM, QUAL Negative Normal Negative [facility] Comment on above: Order Comment: Johni francia Type: BLOOD SPECIMENOrdering Facility: [facility] Address: [address] [place] [address] Result Comment: Myco plasma pneumoniae IgM antibody test is used as an aid in diagnosis of recent infection with M. pneumoniae. It may occasionally remain elevated for extended periods after an acute infection. Cannot exclude recent infection if the specimen collected 7-10 days after onset of signs and symptoms. Clinical correlation is required. Performed By: #### M YCOPM ####[facility] LABCLIA [id number] [facility]ENTERK [id number] [place] NURSING PROGon 07-25-2021 NURSING PROG Normal [facility] THERAPY NTon 07-25-2021 THERAPY NT Normal [facility] THERAPY NT Normal [facility] aPTT PPPon 07-25-2021 aPTT Coag (PPP) [Time] 62.6 s High 23.0-32.4 [facility] Comment on above: Order Comment: Speci men Type: BLOOD SPECIMENOrdering Facility: [facility] Address: [address] [place] [address] Performed By: #### 1 4979-9 ####[facility] LABORATORYCLIA [id number] [address] [place] Bacteria Ur Culton Bacteria identified Cx Nom (U) CULTURE, URINE: No growth (<100 CFU/ml) Normal [facility] Comment on above: Performed By: #### 6 30-4 ####[facility] LABORATORYCLIA [id number] [place] [address] [place] Basic metabolic 2000 panelon 07-24-2021 Anion gap [Moles/Vol] 13 mmol/L Normal 9-18 [facility] Comment on above: Order Comment: Speci men Type: BLOOD SPECIMENOrdering Facility: [facility] Address: [address] [address] Performed By: #### 1 9123-9, PROCAL, 2777-1, 23413-9 ####[facility] LABORATORYCLIA [id number] [place] [address] [place] Calcium [Mass/Vol] 9.5 mg/dL Normal 8.5-10.2 [facility] Comment on above: Order Comment: Speci men Type: BLOOD SPECIMENOrdering Facility: [facility] Address: [address] [address] Performed By: #### 1 9123-9, PROCAL, 7-1, 48949-1 ####[facility] LABORATORYCLIA [id number] [address] [place] [facility] Chloride [Moles/Vol] 102 mmol/L Normal 97-105 [facility] Comment on above: Order Comment: Speci men Type: BLOOD SPECIMENOrdering Facility: [facility] Address: [address] [place] [address] Performed By: #### 1 9123-9, PROCAL, 7-1, 25527-8 ####[facility] LABORATORYCLIA [id number] [address] [place] [facility] CO2 [Moles/Vol] 28 mmol/L Normal 22-30 [facility] Comment on above: Order Comment: Speci men Type: BLOOD SPECIMENOrdering Facility: [facility] Address: [address] [place] [address] Performed By: #### 1 9123-9, [facility], 7-1, 11439-0 ####[facility]ITALCLIA [id number] [address] OF [facility] Creatinine [Mass/Vol] 0.86 mg/dL Normal 0.73-1.22 [facility] Comment on above: Order Comment: Speci men Type: BLOOD SPECIMENOrdering Facility: [facility] Address: [address] [place] [address] Performed By: #### 1 9123-9, [facility], 7-1, 24387-0 ####[facility] LABORATORYCLIA [id number] [address] ESTIMATED GLOMERULAR FILTRATION RATE 94 mL/min/1.73m??? Normal >=60 [facility] Comment on above: Order Comment: Speci men Type: BLOOD SPECIMENOrdering Facility: [facility] Address: [address] [place] [address] Result Comment: Luzmaria mated Glomerular Filtration Rate [...] GFR. Performed By: #### 1 9123-9, PROCAL, 2777-1, 32197-0 ####[facility] LABORATORYCLIA [id number] [place] [address] [place] Glucose [Mass/Vol] 148 mg/dL High 74-99 [facility] Comment on above: Order Comment: Shira feldman Type: BLOOD SPECIMENOrdering Facility: [facility] Address: [address] [address] Result Comment: The [place] [employer] (ADA) provides guidance for cutoff [...] Standards of Medical Care in Diabetes 2016, [place] [employer]. Diabetes Care. 2016.39(Suppl 1). Performed By: #### 1 9123-9, PROCAL, 2777-, 68813-3 ####[facility] LABORATORYCLIA [id number] [place] [address] [place] Potassium [Moles/Vol] 4.0 mmol/L Normal 3.7-5.1 [facility] Comment on above: Order Comment: Shira feldman Type: BLOOD SPECIMENOrdering Facility: [facility] Address: [address] [id number] Performed By: #### 1 9123-9, PROCAL, 2777-1, 33064-1 ####[facility] LABORATORYCLIA [id number] [address] [place] Sodium [Moles/Vol] 143 mmol/L Normal 136-144 [facility] Comment on above: Order Comment: Speci men Type: BLOOD SPECIMENOrdering Facility: [facility] Address: [address] [place] [address] Performed By: #### 1 9123-9, PROCAL, 2777-1, 89624-5 ####[facility] LABORATORYCLIA [id number] [place] [address] [place] Urea nitrogen [Mass/Vol] 38 mg/dL High 9-24 [facility] Comment on above: Order Comment: Speci men Type: BLOOD SPECIMENOrdering Facility: [facility] Address: [address] [place] [address] Performed By: #### 1 9123-9, PROCAL, 2777-1, 54847-1 ####[facility] LABORATORYCLIA [id number] [address] CBC W Auto Differential pane l (Bld)on 07-24-2021 Basophils (Bld) [#/Vol] 0.06 10*3/uL Normal <0.11 [facility] Comment on above: Order Comment: Speci men Type: BLOOD SPECIMENOrdering Facility: [facility] Address: [address] [place] [address] Performed By: #### 5 7021-8 ####[facility] LABORATORYCLIA [id number] [address] [place] Basophils/100 WBC (Bld) 0.6 % Normal [facility] Comment on above: Order Comment: Speci men Type: BLOOD SPECIMENOrdering Facility: [facility] Address: [address] [place] [address] Performed By: #### 5 7021-8 ####[facility] LABORATORYCLIA [id number] [address] STATES [facility] Differential cell count method Nom (Bld) Auto Normal [facility] Comment on above: Order Comment: Speci men Type: BLOOD SPECIMENOrdering Facility: [facility] Address: [address] [address] Performed By: #### 5 7021-8 ####[facility] LABORATORYCLIA [id number] [address] Eosinophils (Bld) [#/Vol] 0.03 10*3/uL Normal <0.46 [facility] Comment on above: Order Comment: Speci men Type: BLOOD SPECIMENOrdering Facility: [facility] Address: [address] [place] [address] Performed By: #### 5 7021-8 ####[facility] LABORATORYCLIA [id number] [address] Eosinophils/100 WBC (Bld) 0.3 % Normal [facility] Comment on above: Order Comment: Speci men Type: BLOOD SPECIMENOrdering Facility: [facility] Address: [address] [place] [address] Performed By: #### 5 7021-8 ####[facility] LABORATORYCLIA [id number] [address] Erythrocyte distribution width (RBC) [Ratio] 17.0 % High 11.5-15.0 [facility] Comment on above: Order Comment: Speci men Type: BLOOD SPECIMENOrdering Facility: [facility] Address: [address] [place] [address] Performed By: #### 5 7021-8 ####[facility] LABORATORYCLIA [id number] [address] Hematocrit (Bld) [Volume fraction] 30.5 % Low 39.0-51.0 [facility] Comment on above: Order Comment: Speci men Type: BLOOD SPECIMENOrdering Facility: [facility] Address: [address] [place] [address] Performed By: #### 5 7021-8 ####[facility] LABORATORYCLIA [id number] [address] Hemoglobin (Bld) [Mass/Vol] 9.0 g/dL Low 13.0-17.0 [facility] Comment on above: Order Comment: Speci men Type: BLOOD SPECIMENOrdering Facility: [facility] Address: [address] [place] [address] Performed By: #### 5 7021-8 ####[facility]ORATORYCLIA [id number] [address] IMMATURE GRAN % 0.5 % Normal [facility] Comment on above: Order Comment: Speci men Type: BLOOD SPECIMENOrdering Facility: [facility] Address: [address] [place] [address] Performed By: #### 5 7021-8 ####[facility]ORATORYCLIA [id number] [address] IMMATURE GRAN ABS 0.05 k/uL Normal <0.10 [facility] Comment on above: Order Comment: Speci men Type: BLOOD SPECIMENOrdering Facility: [facility] Address: [address] [place] [address] Performed By: #### 5 7021-8 ####[facility]ORATORYCLIA [id number] [address] [place] Lymphocytes (Bld) [#/Vol] 1.68 10*3/uL Normal 1.00-4.00 [facility] Comment on above: Order Comment: Speci men Type: BLOOD SPECIMENOrdering Facility: [facility] Address: [address] [place] [address] Performed By: #### 5 7021-8 ####[facility] [facility]ORATORYCLIA [id number] [address] Lymphocytes/100 WBC (Bld) 16.2 % Normal [facility] Comment on above: Order Comment: Speci men Type: BLOOD SPECIMENOrdering Facility: [facility] Address: [address] [place] [address] Performed By: #### 5 7021-8 ####[facility] [facility]ORATORYCLIA [id number] MCH (RBC) [Entitic mass] 27.4 pg Normal 26.0-34.0 [facility] Comment on above: Order Comment: Speci men Type: BLOOD SPECIMENOrdering Facility: [facility] Address: [address] [place] [address] Performed By: #### 5 7021-8 ####[facility] LABORATORYCLIA [id number] [address] [place] [facility] MCHC (RBC) [Mass/Vol] 29.5 g/dL Low 30.5-36.0 [facility] Comment on above: Order Comment: Speci men Type: BLOOD SPECIMENOrdering Facility: [facility] Address: [address] [place] [address] Performed By: #### 5 7021-8 ####[facility] LABORATORYCLIA [id number] [address] MCV (RBC) [Entitic vol] 93.0 fL Normal 80.0-100.0 [facility] Comment on above: Order Comment: Speci men Type: BLOOD SPECIMENOrdering Facility: [facility] Address: [address] [place] [address] Performed By: #### 5 7021-8 ####[facility] LABORATORYCLIA [id number] [address] Monocytes (Bld) [#/Vol] 0.63 10*3/uL Normal <0.87 [facility] Comment on above: Order Comment: Speci men Type: BLOOD SPECIMENOrdering Facility: [facility] Address: [address] [place] [address] Performed By: #### 5 7021-8 ####[facility] LABORATORYCLIA [id number] [address] Monocytes/100 WBC (Bld) 6.1 % Normal [facility] Comment on above: Order Comment: Speci men Type: BLOOD SPECIMENOrdering Facility: [facility] Address: [address] [place] [address] Performed By: #### 5 7021-8 ####[facility]ORATORYCLIA [id number] [address] [place] Neutrophils (Bld) [#/Vol] 7.91 10*3/uL High 1.45-7.50 [facility] Comment on above: Order Comment: Speci men Type: BLOOD SPECIMENOrdering Facility: [facility] Address: [address] [place] [address] Performed By: #### 5 7021-8 ####[facility] LABORATORYCLIA [id number] [address] STATES [facility] Neutrophils/100 WBC (Bld) 76.3 % Normal [facility] Comment on above: Order Comment: Speci men Type: BLOOD SPECIMENOrdering Facility: [facility] Address: [address] [place] [address] Performed By: #### 5 7021-8 ####[facility] LABORATORYCLIA [id number] [address] STATES [facility] Nucleated RBC (Bld) [#/Vol] 10*3/uL Normal <0.01 [facility] Comment on above: Order Comment: Speci men Type: BLOOD SPECIMENOrdering Facility: [facility] Address: [address] [place] [address] Performed By: #### 5 7021-8 ####[facility] LABORATORYCLIA [id number] [address] STATES OF [facility] Nucleated RBC/100 WBC (Bld) [Ratio] 0.0 /100 WBC Normal [facility] Comment on above: Order Comment: Speci men Type: BLOOD SPECIMENOrdering Facility: [facility] Address: [address] [place] [address] Performed By: #### 5 7021-8 ####[facility]ORATORYCLIA [id number] [address] [place] Platelet mean volume (Bld) [Entitic vol] 11.1 fL Normal 9.0-12.7 [facility] Comment on above: Order Comment: Speci men Type: BLOOD SPECIMENOrdering Facility: [facility] Address: [address] [place] [address] Performed By: #### 5 7021-8 ####[facility] LABORATORYCLIA [id number] [address] OF [facility] Platelets (Bld) [#/Vol] 285 10*3/uL Normal 150-400 [facility] Comment on above: Order Comment: Speci men Type: BLOOD SPECIMENOrdering Facility: [facility] Address: [address] [place] [address] Performed By: #### 5 7021-8 ####[facility] LABORATORYCLIA [id number] [address] OF [facility] RBC (Bld) [#/Vol] 3.28 10*6/uL Low 4.20-6.00 [facility] Comment on above: Order Comment: Speci men Type: BLOOD SPECIMENOrdering Facility: [facility] Address: [address] [place] [address] Performed By: #### 5 7021-8 ####[facility] LABORATORYCLIA [id number] [address] [facility] WBC (Bld) [#/Vol] 10.36 10*3/uL Normal 3.70-11.00 [facility] Comment on above: Order Comment: Speci men Type: BLOOD SPECIMENOrdering Facility: [facility] Address: [address] [place] [address] Performed By: #### 5 7021-8 ####[facility] LABORATORYCLIA [id number] [address] [place] Legionella Ag Ur Qlon 2021 Legionella sp Ag Ql (U) Negative Normal Negative [facility] Comment on above: Order Comment: Speci men Type: URINE SPECIMENOrdering Facility: [facility] Address: [address] [place] [address] Performed By: #### 3 2781-7 ####[facility] LABORATORYCLIA [id number] [address] [place] Magnesium SerPl-mCncon 07-24 Magnesium [Mass/Vol] 2.3 mg/dL Normal 1.7-2.3 [facility] Comment on above: Order Comment: Speci men Type: BLOOD SPECIMENOrdering Facility: [facility] Address: [address] [place] [address] Performed By: #### 1 9123-9, [facility], 2776-05, 84468-7 ####[facility] LABORATORYCLIA [id number] [address] [place] NURSING PROGon 07-24-2021 NURSING PROG Normal [facility] PROCALCITONIN (LAB)on 2021 Procalcitonin [Mass/Vol] 0.15 ng/mL High <0.09 [facility] Comment on above: Order Comment: Speci men Type: BLOOD SPECIMENOrdering Facility: [facility] Address: [address] [place] [address] Result Comment: For a guided interpretation of test results, please visit the Change in Procalcitonin Calculator, [email or web address]. Performed By: #### 1 9123-9, [place], 2776-05, 71205-3 ####[facility] LABORATORYCLIA [id number] [place] [address] [place] Phosphate SerPl-mCncon 07-24 Phosphate [Mass/Vol] 3.9 mg/dL Normal 2.7-4.8 [facility] Comment on above: Order Comment: Speci men Type: BLOOD SPECIMENOrdering Facility: [facility] Address: [address] [place] [address] Performed By: #### 1 9123-9, [place], 2776-05, 90103-1 ####[facility] LABORATORYCLIA [id number] [address] STATES [place] STREPTOCOCCUS PNEUMONIAE AGo n 07-24-2021 STREPTOCOCCUS PNEUMONIAE AG Normal [facility] Comment on above: Performed By: #### S PNAG ####[facility] LABORATORYCLIA [id number] [address] aPTT PPPon 07-24-2021 aPTT Coag (PPP) [Time] 60.8 s High 23.0-32.4 [facility] Comment on above: Order Comment: Speci men Type: BLOOD SPECIMENOrdering Facility: [facility] Address: [address] [place] [address] Performed By: #### 1 4979-9 ####[facility] LABORATORYCLIA [id number] [address] aPTT Coag (PPP) [Time] 38.2 s High 23.0-32.4 [facility] Comment on above: Order Comment: Speci men Type: BLOOD SPECIMENOrdering Facility: [facility] Address: [address] [place] [address] Performed By: #### 1 4979-9 ####[facility] LABORATORYCLIA [id number] [address] aPTT Coag (PPP) [Time] 35.9 s High 23.0-32.4 [facility] Comment on above: Order Comment: Speci men Type: BLOOD SPECIMENOrdering Facility: [facility] Address: [address] [place] [address] Performed By: #### 1 4979-9 ####[facility] LABORATORYCLIA [id number] [address] aPTT Coag (PPP) [Time] 28.8 s Normal 23.0-32.4 [facility] Comment on above: Order Comment: Speci men Type: BLOOD SPECIMENOrdering Facility: [facility] Address: [address] [place] [address] Performed By: #### 1 4979-9 ####[facility] LABORATORYCLIA [id number] [address] ALLIED HEALTHon 07-23-2021 ALLIED HEALTH Normal [facility] ALLIED HEALTH Normal [facility] ALLIED HEALTH Normal [facility] ARTERIAL BLOOD GASESon 07-23 Base excess Calc (Bld) [Moles/Vol] 4 mmol/L High 0-2 [facility] Comment on above: Order Comment: Speci men Type: ARTERIAL BLOOD SPECIMENOrdering Facility: [facility] Address: [address] [place] [address] Performed By: #### A LLBG ####[facility] LABORATORYCLIA [id number] [place] [address] [place] Body temperature 100.58 [degF] Normal [facility] Comment on above: Order Comment: Speci men Type: ARTERIAL BLOOD SPECIMENOrdering Facility: [facility] Address: [address] [place] [address] Performed By: #### A LLBG ####[facility] LABORATORYCLIA [id number] [place] [address] [place] CALCIUM IONIZED, PH CORRECTED 1.26 mmol/L Normal 1.08-1.30 [facility] Comment on above: Order Comment: Speci men Type: ARTERIAL BLOOD SPECIMENOrdering Facility: [facility] Address: [address] [place] [address] Performed By: #### A LLBG ####[facility] LABORATORYCLIA [id number] [place] [address] [place] Calcium.ionized (BldV) [Mass/Vol] 1.25 mmol/L Normal 1.08-1.30 [facility] Comment on above: Order Comment: Speci men Type: ARTERIAL BLOOD SPECIMENOrdering Facility: [facility] Address: [address] [place] [address] Performed By: #### A LLBG ####[facility] LABORATORYCLIA [id number] [address] [place] Carboxyhemoglobin (BldA) [Mass fraction] 1.2 % Normal 0.0-2.0 [facility] Comment on above: Order Comment: Speci men Type: ARTERIAL BLOOD SPECIMENOrdering Facility: [facility] Address: [address] [place] [address] Result Comment: Carb oxyhemoglobin Reference Range for Smokers: 2.0-8.0% Performed By: #### A LLBG ####[facility]ORATORYCLIA [id number] [address] CO2 (Bld) [Partial pressure] 46 mm Hg Normal 36-46 [facility] Comment on above: Order Comment: Speci men Type: ARTERIAL BLOOD SPECIMENOrdering Facility: [facility] Address: [address] [place] [address] Performed By: #### A LLBG ####[facility] LABORATORYCLIA [id number] [address] [place] CO2 [Moles/Vol] 27 mmol/L Normal 22-28 [facility] Comment on above: Order Comment: Speci men Type: ARTERIAL BLOOD SPECIMENOrdering Facility: [facility] Address: [address] [place] [address] Performed By: #### A LLBG ####[facility] LABORATORYCLIA [id number] [address] CO2 adjusted to patient's actual temperature (Bld) [Partial pressure] 48 mmHg High 36-46 [facility] Comment on above: Order Comment: Speci men Type: ARTERIAL BLOOD SPECIMENOrdering Facility: [facility] Address: [address] [place] [address] Performed By: #### A LLBG ####[facility] LABORATORYCLIA [id number] [place] [address] [place] Glucose [Mass/Vol] 134 mg/dL High 60-105 [facility] Comment on above: Order Comment: Speci men Type: ARTERIAL BLOOD SPECIMENOrdering Facility: [facility] Address: [address] [place] [address] Performed By: #### A LLBG ####[facility] LABORATORYCLIA [id number] [address] [place] HCO3 (Bld) [Moles/Vol] 29 mmol/L High 22-26 [facility] Comment on above: Order Comment: Speci men Type: ARTERIAL BLOOD SPECIMENOrdering Facility: [facility] Address: [address] [place] [address] Performed By: #### A LLBG ####[facility] LABORATORYCLIA [id number] [address] [place] Hematocrit (Bld) [Volume fraction] 31.4 % Low 39.0-51.0 [facility] Comment on above: Order Comment: Speci men Type: ARTERIAL BLOOD SPECIMENOrdering Facility: [facility] Address: [address] [place] [address] Performed By: #### A LLBG ####[facility] LABORATORYCLIA [id number] [address] [place] Hemoglobin (Bld) [Mass/Vol] 10.2 g/dL Low 13.0-17.0 [facility] Comment on above: Order Comment: Speci men Type: ARTERIAL BLOOD SPECIMENOrdering Facility: [facility] Address: [address] [place] [address] Performed By: #### A LLBG ####[facility] LABORATORYCLIA [id number] [address] [place] Methemoglobin (Bld) [Mass fraction] % Normal 0.0-1.5 [facility] Comment on above: Order Comment: Speci men Type: ARTERIAL BLOOD SPECIMENOrdering Facility: [facility] Address: [address] [place] [address] Performed By: #### A LLBG ####[facility] LABORATORYCLIA [id number] [address] [place] O2 THERAPY Ventilator Normal [facility] Comment on above: Order Comment: Speci men Type: ARTERIAL BLOOD SPECIMENOrdering Facility: [facility] Address: [address] [place] [address] Performed By: #### A LLBG ####[facility]ORATORYCLIA [id number] [address] [place] Oxygen (Bld) [Partial pressure] 113 mm Hg High 85-95 [facility] Comment on above: Order Comment: Speci men Type: ARTERIAL BLOOD SPECIMENOrdering Facility: [facility] Address: [address] [address] Performed By: #### A LLBG ####[facility] LABORATORYCLIA [id number] [address] [place] Oxygen adjusted to patient's actual temperature (Bld) [Partial pressure] 119 mmHg High 85-95 [facility] Comment on above: Order Comment: Speci men Type: ARTERIAL BLOOD SPECIMENOrdering Facility: [facility] Address: [address] [place] [address] Performed By: #### A LLBG ####[facility] LABORATORYCLIA [id number] [address] [place] OXYGEN SATURATION, ARTERIAL 98 % Normal 95-98 [facility] Comment on above: Order Comment: Speci men Type: ARTERIAL BLOOD SPECIMENOrdering Facility: [facility] Address: [address] [place] [address] Performed By: #### A LLBG ####[facility] LABORATORYCLIA [id number] [address] [place] Oxyhemoglobin (BldA) [Mass fraction] 96 % Normal 95-98 [facility] Comment on above: Order Comment: Speci men Type: ARTERIAL BLOOD SPECIMENOrdering Facility: [facility] Address: [address] [address] Performed By: #### A LLBG ####[facility] LABORATORYCLIA [id number] [address] [place] pH (Bld) 7.41 [pH] Normal 7.35-7.45 [facility] Comment on above: Order Comment: Speci men Type: ARTERIAL BLOOD SPECIMENOrdering Facility: [facility] Address: [address] [address] Performed By: #### A LLBG ####[facility]ORATORYCLIA [id number] [address] pH adjusted to patient's actual temperature (Bld) 7.40 Normal 7.35-7.45 [facility] Comment on above: Order Comment: Speci men Type: ARTERIAL BLOOD SPECIMENOrdering Facility: [facility] Address: [address] [place] [address] Performed By: #### A LLBG ####[facility] LABORATORYCLIA [id number] [address] [place] Potassium [Moles/Vol] 4.3 mmol/L Normal 3.5-5.0 [facility] Comment on above: Order Comment: Speci men Type: ARTERIAL BLOOD SPECIMENOrdering Facility: [facility] Address: [address] [place] [address] Performed By: #### A LLBG ####[facility] LABORATORYCLIA [id number] [address] Sodium [Moles/Vol] 144 mmol/L Normal 136-144 [facility] Comment on above: Order Comment: Speci men Type: ARTERIAL BLOOD SPECIMENOrdering Facility: [facility] Address: [address] [place] [address] Performed By: #### A LLBG ####[facility] LABORATORYCLIA [id number] [address] [place] Bacteria CSF Culton 07-24-19 22 Bacteria identified Cx Nom (CSF) Abnormal [facility] Comment on above: Performed By: #### 6 06-4 ####[facility] LABORATORYCLIA [id number] [place] [address] [place] Basic metabolic 2000 panelon 07-23-2021 Anion gap [Moles/Vol] 12 mmol/L Normal 9-18 [facility] Comment on above: Order Comment: Speci men Type: BLOOD SPECIMENOrdering Facility: [facility] Address: [address] [place] [address] Performed By: #### 2 4321-2 ####[facility]ATORYCLIA [id number] [place] [address] [place] Calcium [Mass/Vol] 9.7 mg/dL Normal 8.5-10.2 [facility] Comment on above: Order Comment: Speci men Type: BLOOD SPECIMENOrdering Facility: [facility] Address: [address] [place] [address] Performed By: #### 2 4321-2 ####[facility] LABORATORYCLIA [id number] [place] [address] [place] Chloride [Moles/Vol] 105 mmol/L Normal 97-105 [facility] Comment on above: Order Comment: Speci men Type: BLOOD SPECIMENOrdering Facility: [facility] Address: [address] [place] [address] Performed By: #### 2 4321-2 ####[facility] LABORATORYCLIA [id number] [address] [place] CO2 [Moles/Vol] 28 mmol/L Normal 22-30 [facility] Comment on above: Order Comment: Speci men Type: BLOOD SPECIMENOrdering Facility: [facility] Address: [address] [place] [address] Performed By: #### 2 4321-2 ####[facility] LABORATORYCLIA [id number] [place] [address] [place] Creatinine [Mass/Vol] 0.78 mg/dL Normal 0.73-1.22 [facility] Comment on above: Order Comment: Speci men Type: BLOOD SPECIMENOrdering Facility: [facility] Address: [address] [place] [address] Performed By: #### 2 4321-2 ####[facility] LABORATORYCLIA [id number] [address] ESTIMATED GLOMERULAR FILTRATION RATE 97 mL/min/1.73m??? Normal >=60 [facility] Comment on above: Order Comment: Speci men Type: BLOOD SPECIMENOrdering Facility: [facility] Address: [address] [id number] Result Comment: Luzmaria mated Glomerular Filtration Rate [...] actual GFR. Performed By: #### 2 4321-2 ####[facility]ITALCLIA [id number] [place] [address] [place] Glucose [Mass/Vol] 127 mg/dL High 74-99 [facility] Comment on above: Order Comment: Shira feldman Type: BLOOD SPECIMENOrdering Facility: [facility] Address: [address] [id number] Result Comment: The [place] [employer] (ADA) provides guidance for cutoff [...] Standards of Medical Care in Diabetes 2016, [place] [employer]. Diabetes Care. 2016.39(Suppl 1). Performed By: #### 2 4321-2 ####[facility] LABORATORYCLIA [id number] [place] [address] [place] Potassium [Moles/Vol] 4.3 mmol/L Normal 3.7-5.1 [facility] Comment on above: Order Comment: Shira feldman Type: BLOOD SPECIMENOrdering Facility: [facility] Address: [address] [id number] Performed By: #### 2 4321-2 ####[facility] LABORATORYCLIA [id number] [place] [id number] [place] Sodium [Moles/Vol] 145 mmol/L High 136-144 [facility] Comment on above: Order Comment: Speci men Type: BLOOD SPECIMENOrdering Facility: [facility] Address: [address] [place] [address] Performed By: #### 2 4321-2 ####[facility] LABORATORYCLIA [id number] [place] [address] [place] Urea nitrogen [Mass/Vol] 37 mg/dL High 9-24 [facility] Comment on above: Order Comment: Speci men Type: BLOOD SPECIMENOrdering Facility: [facility] Address: [address] [place] [address] Performed By: #### 2 4321-2 ####[facility] LABORATORYCLIA [id number] [address] [place] C diff Tox gens Stl Ql MEGAN+p robeon 07-23-2021 C. difficile toxin genes MEGAN+probe Ql (Stl) Negative Normal Negative for C. difficile toxin by PCR [facility] Comment on above: Order Comment: Speci men Type: STOOL SPECIMENOrdering Facility: [facility] Address: [address] [place] [address] Performed By: #### 5 4067-4 ####[facility] LABORATORYCLIA [id number] [address] [place] CBC W Auto Differential pane l (Bld)on 07-23-2021 Basophils (Bld) [#/Vol] 0.07 10*3/uL Normal <0.11 [facility] Comment on above: Order Comment: Speci men Type: BLOOD SPECIMENOrdering Facility: [facility] Address: [address] [place] [address] Performed By: #### 5 7021-8 ####[facility] LABORATORYCLIA [id number] [address] [place] Basophils/100 WBC (Bld) 0.5 % Normal [facility] Comment on above: Order Comment: Speci men Type: BLOOD SPECIMENOrdering Facility: [facility] Address: [address] [address] Performed By: #### 5 7021-8 ####[facility]ORATORYCLIA [id number] [address] Differential cell count method Nom (Bld) Auto Normal [facility] Comment on above: Order Comment: Speci men Type: BLOOD SPECIMENOrdering Facility: [facility] Address: [address] [place] [address] Performed By: #### 5 7021-8 ####[facility] LABORATORYCLIA [id number] [address] Eosinophils (Bld) [#/Vol] 10*3/uL Normal <0.46 [facility] Comment on above: Order Comment: Speci men Type: BLOOD SPECIMENOrdering Facility: [facility] Address: [address] [place] [address] Performed By: #### 5 7021-8 ####[facility] LABORATORYCLIA [id number] [address] Eosinophils/100 WBC (Bld) 0.2 % Normal [facility] Comment on above: Order Comment: Speci men Type: BLOOD SPECIMENOrdering Facility: [facility] Address: [address] [place] [address] Performed By: #### 5 7021-8 ####[facility] LABORATORYCLIA [id number] [address] Erythrocyte distribution width (RBC) [Ratio] 16.7 % High 11.5-15.0 [facility] Comment on above: Order Comment: Speci men Type: BLOOD SPECIMENOrdering Facility: [facility] Address: [address] [place] [address] Performed By: #### 5 7021-8 ####[facility] LABORATORYCLIA [id number] [address] Hematocrit (Bld) [Volume fraction] 32.8 % Low 39.0-51.0 [facility] Comment on above: Order Comment: Speci men Type: BLOOD SPECIMENOrdering Facility: [facility] Address: [address] [place] [address] Performed By: #### 5 7021-8 ####[facility] LABORATORYCLIA [id number] [address] [place] Hemoglobin (Bld) [Mass/Vol] 9.7 g/dL Low 13.0-17.0 [facility] Comment on above: Order Comment: Speci men Type: BLOOD SPECIMENOrdering Facility: [facility] Address: [address] [place] [address] Performed By: #### 5 7021-8 ####[facility] LABORATORYCLIA [id number] [address] [facility] IMMATURE GRAN % 0.7 % Normal [facility] Comment on above: Order Comment: Speci men Type: BLOOD SPECIMENOrdering Facility: [facility] Address: [address] [place] [address] Performed By: #### 5 7021-8 ####[facility] LABORATORYCLIA [id number] [address] IMMATURE GRAN ABS 0.09 k/uL Normal <0.10 [facility] Comment on above: Order Comment: Speci men Type: BLOOD SPECIMENOrdering Facility: [facility] Address: [address] [place] [address] Performed By: #### 5 7021-8 ####[facility] LABORATORYCLIA [id number] [address] [place] Lymphocytes (Bld) [#/Vol] 1.94 10*3/uL Normal 1.00-4.00 [facility] Comment on above: Order Comment: Speci men Type: BLOOD SPECIMENOrdering Facility: [facility] Address: [address] [place] [address] Performed By: #### 5 7021-8 ####[facility] LABORATORYCLIA [id number] [address] Lymphocytes/100 WBC (Bld) 14.6 % Normal [facility] Comment on above: Order Comment: Speci men Type: BLOOD SPECIMENOrdering Facility: [facility] Address: [address] [place] [address] Performed By: #### 5 7021-8 ####[facility] LABORATORYCLIA [id number] [address] MCH (RBC) [Entitic mass] 27.2 pg Normal 26.0-34.0 [facility] Comment on above: Order Comment: Speci men Type: BLOOD SPECIMENOrdering Facility: [facility] Address: [address] [place] [address] Performed By: #### 5 7021-8 ####[facility] LABORATORYCLIA [id number] [address] [place] [facility] MCHC (RBC) [Mass/Vol] 29.6 g/dL Low 30.5-36.0 [facility] Comment on above: Order Comment: Speci men Type: BLOOD SPECIMENOrdering Facility: [facility] Address: [address] [place] [address] Performed By: #### 5 7021-8 ####[facility] LABORATORYCLIA [id number] [address] MCV (RBC) [Entitic vol] 92.1 fL Normal 80.0-100.0 [facility] Comment on above: Order Comment: Speci men Type: BLOOD SPECIMENOrdering Facility: [facility] Address: [address] [place] [address] Performed By: #### 5 7021-8 ####[facility] LABORATORYCLIA [id number] [address] Monocytes (Bld) [#/Vol] 0.74 10*3/uL Normal <0.87 [facility] Comment on above: Order Comment: Speci men Type: BLOOD SPECIMENOrdering Facility: [facility] Address: [address] [place] [address] Performed By: #### 5 7021-8 ####[facility]ORATORYCLIA [id number] [address] [place] Monocytes/100 WBC (Bld) 5.6 % Normal [facility] Comment on above: Order Comment: Speci men Type: BLOOD SPECIMENOrdering Facility: [facility] Address: [address] [place] [address] Performed By: #### 5 7021-8 ####[facility]ORATORYCLIA [id number] [address] [place] Neutrophils (Bld) [#/Vol] 10.43 10*3/uL High 1.45-7.50 [facility] Comment on above: Order Comment: Speci men Type: BLOOD SPECIMENOrdering Facility: [facility] Address: [address] [place] [address] Performed By: #### 5 7021-8 ####[facility] LABORATORYCLIA [id number] [address] STATES OF [facility] Neutrophils/100 WBC (Bld) 78.4 % Normal [facility] Comment on above: Order Comment: Speci men Type: BLOOD SPECIMENOrdering Facility: [facility] Address: [address] [place] [address] Performed By: #### 5 7021-8 ####[facility]ORATORYCLIA [id number] [address] [place] Nucleated RBC (Bld) [#/Vol] 10*3/uL Normal <0.01 [facility] Comment on above: Order Comment: Speci men Type: BLOOD SPECIMENOrdering Facility: [facility] Address: [address] [place] [address] Performed By: #### 5 7021-8 ####[facility]ORATORYCLIA [id number] [address] [place] Nucleated RBC/100 WBC (Bld) [Ratio] 0.0 /100 WBC Normal [facility] Comment on above: Order Comment: Speci men Type: BLOOD SPECIMENOrdering Facility: [facility] Address: [address] [place] [address] Performed By: #### 5 7021-8 ####[facility] LABORATORYCLIA [id number] [address] Platelet mean volume (Bld) [Entitic vol] 11.0 fL Normal 9.0-12.7 [facility] Comment on above: Order Comment: Speci men Type: BLOOD SPECIMENOrdering Facility: [facility] Address: [address] [place] [address] Performed By: #### 5 7021-8 ####[facility] LABORATORYCLIA [id number] [address] [place] Platelets (Bld) [#/Vol] 381 10*3/uL Normal 150-400 [facility] Comment on above: Order Comment: Speci men Type: BLOOD SPECIMENOrdering Facility: [facility] Address: [address] [place] [address] Performed By: #### 5 7021-8 ####[facility] LABORATORYCLIA [id number] [address] [place] RBC (Bld) [#/Vol] 3.56 10*6/uL Low 4.20-6.00 [facility] Comment on above: Order Comment: Speci men Type: BLOOD SPECIMENOrdering Facility: [facility] Address: [address] [place] [address] Performed By: #### 5 7021-8 ####[facility] LABORATORYCLIA [id number] [address] [place] WBC (Bld) [#/Vol] 13.29 10*3/uL High 3.70-11.00 [facility] Comment on above: Order Comment: Speci men Type: BLOOD SPECIMENOrdering Facility: [facility] Address: [address] [place] [address] Performed By: #### 5 7021-8 ####[facility]ORATORYCLIA [id number] [address] [place] CONSULT PROGon 07-23-2021 CONSULT PROG Normal [facility] CONSULT PROG Normal [facility] CSF MANUAL DIFFon 07-23-2021 DIF TTL, CSF 100 cells counted Normal [facility] Comment on above: Order Comment: Speci men Type: CEREBROSPINAL FLUIDOrdering Facility: [facility] Address: [address] [place] [address] Performed By: #### L [id number], [id number], 44743-0 ####[facility] LABORATORYCLIA [id number] [place] [address] [place] LYMPH%, CSF 2 % Low 50-90 [facility] Comment on above: Order Comment: Speci men Type: CEREBROSPINAL FLUIDOrdering Facility: [facility] Address: [address] [place] [address] Performed By: #### L [id number], [id number], 68822-1 ####[facility] LABORATORYCLIA [id number] [place] [address] [place] MONO%, CSF 9 % Low 10-50 [facility] Comment on above: Order Comment: Speci men Type: CEREBROSPINAL FLUIDOrdering Facility: [facility] Address: [address] [place] [address] Performed By: #### L [id number], [id number], 36407-8 ####[facility] LABORATORYCLIA [id number] [place] [address] [place] NEUT%, CSF 89 % High 0-3 [facility] Comment on above: Order Comment: Speci men Type: CEREBROSPINAL FLUIDOrdering Facility: [facility] Address: [address] [place] [address] Performed By: #### L [id number], [id number], 49766-1 ####[facility] LABORATORYCLIA [id number] [address] [place] CSF PATHOLOGIST INTERP (LAB REFLEX ORDER-NO BILL)on 07-23-2021 CSF STAFF REVIEW Negative for maligna nt cells. Numerous bacterial organisms present, cocci in pairs and chains. Recommend correlation with CSF culture results. Normal [facility] Comment on above: Order Comment: Speci men Type: CEREBROSPINAL FLUIDOrdering Facility: [facility] Address: [address] [place] [address] Performed By: #### L [id number], [id number], 15640-1 ####[facility] LABORATORYCLIA [id number] [address] Pathologist name Reviewed by Amador Stevens MD [facility] Comment on above: Order Comment: Speci men Type: CEREBROSPINAL FLUIDOrdering Facility: [facility] Address: [address] [place] [address] Performed By: #### L [id number], [id number], 28158-4 ####[facility] LABORATORYCLIA [id number] [address] BRAIN WO IVCONon 07-24-19 CT BRAIN WO IVCON Normal [facility] Cell count panel (CSF)on Clarity (CSF) Clear Normal Clear [facility] Comment on above: Order Comment: Speci men Type: CEREBROSPINAL FLUIDOrdering Facility: [facility] Address: [address] [place] [address] Performed By: #### L [id number], PSP8470, 25380-1 ####[facility] LABORATORYCLIA [id number] [address] Clarity (Unsp spec) Not Indicated Normal Clear [facility] Comment on above: Order Comment: Speci men Type: CEREBROSPINAL FLUIDOrdering Facility: [facility] Address: [address] [place] [address] Performed By: #### L [id number], ZAA5470, 36022-2 ####[facility] LABORATORYCLIA [id number] [address] Color (CSF) Colorless Normal Colorless [facility] Comment on above: Order Comment: Speci men Type: CEREBROSPINAL FLUIDOrdering Facility: [facility] Address: [address] [place] [address] [place], [place] [address] Performed By: #### L [id number], BYG2854, 82471-0 ####[facility] LABORATORYCLIA [id number] [address] Color (Spun CSF) Not Indicated Normal Colorless [facility] Comment on above: Order Comment: Speci men Type: CEREBROSPINAL FLUIDOrdering Facility: [facility] Address: [address] [place] [address] Performed By: #### L [id number], MCH1111, 07446-3 ####[facility] LABORATORYCLIA [id number] [address] CSF [employer] Normal [facility] Comment on above: Order Comment: Speci men Type: CEREBROSPINAL FLUIDOrdering Facility: [facility] Address: [address] [place] [address] Performed By: #### L IH8764, QWL4417, 81218-2 ####[facility] LABORATORYCLIA [id number] [address] RBC Manual cnt (CSF) [#/Vol] 7 cells/uL High 0-5 [facility] Comment on above: Order Comment: Speci men Type: CEREBROSPINAL FLUIDOrdering Facility: [facility] Address: [address] [place] [address] Performed By: #### L [id number], JZK3553, 15092-8 ####[facility] LABORATORYCLIA [id number] [address] WBC Manual cnt (CSF) [#/Vol] 193 cells/uL High 0-5 [facility] Comment on above: Order Comment: Speci men Type: CEREBROSPINAL FLUIDOrdering Facility: [facility] Address: [address] [place], [place] [address] Performed By: #### L [id number], KAV1731, 60122-4 ####[facility] LABORATORYCLIA [id number] [address] Glucose CSF-ncon Glucose (CSF) [Mass/Vol] 81 mg/dL High 40-70 [facility] Comment on above: Order Comment: Speci men Type: CEREBROSPINAL FLUIDOrdering Facility: [facility] Address: [address] [place] [address] Result Comment: Lumb ar CSF glucose values of healthy patients are approximately 60% of the plasma values and must always be compared with a concurrently measured plasma value for adequate clinical interpretation.References: 1. Glucose HK (GLUC3) [package insert V 12.0 [place]]. [employer], [place], [place]. September 2015. 2. Michelle Moore, Loki HGarfield (2015). Chapter 7: Glucose and Lactate. Marianela Rothman.(eds.), Cerebrospinal Fluid in Clinical Neurology. [place]: [employer]. Performed By: #### 2 342-4, 2880-3 ####[facility] LABORATORYCLIA [id number] [address] OF [facility] NURSING PROGon 07-23-2021 NURSING PROG Normal [facility] NURSING PROG Normal [facility] Prot [facility] Protein (CSF) [Mass/Vol] 68 mg/dL High 15-45 [facility] Comment on above: Order Comment: Speci men Type: CEREBROSPINAL FLUIDOrdering Facility: [facility] Address: [address] [place] [address] Performed By: #### 2 342-4, 2880-3 ####[facility] LABORATORYCLIA [id number] [address] [place] Urinalysis complete panel (U )on 07-23-2021 Bilirubin Ql (U) Negative Normal Negative [facility] Comment on above: Order Comment: Speci men Type: URINE SPECIMENOrdering Facility: [facility] Address: [address] [place] [address] Performed By: #### 2 4356-8 ####[facility] LABORATORYCLIA [id number] [place] [address] [place] Clarity (Unsp spec) Clear Normal Clear [facility] Comment on above: Order Comment: Speci men Type: URINE SPECIMENOrdering Facility: [facility] Address: [address] [place] [address] Performed By: #### 2 4356-8 ####[facility]ORATORYCLIA [id number] [address] [place] Color (U) Light Yellow Normal yellow [facility] Comment on above: Order Comment: Speci men Type: URINE SPECIMENOrdering Facility: [facility] Address: [address] [place] [address] Performed By: #### 2 4356-8 ####[facility]ORATORYCLIA [id number] [address] Glucose Test strip (U) [Mass/Vol] Negative Normal Negative [facility] Comment on above: Order Comment: Speci men Type: URINE SPECIMENOrdering Facility: [facility] Address: [address] [place] [address] Performed By: #### 2 4356-8 ####[facility] LABORATORYCLIA [id number] [address] Hemoglobin Ql (U) Negative Normal Negative [facility] Comment on above: Order Comment: Speci men Type: URINE SPECIMENOrdering Facility: [facility] Address: [address] [place] [address] Performed By: #### 2 4356-8 ####[facility] LABORATORYCLIA [id number] [address] [place] Ketones Ql (U) Negative Normal Negative [facility] Comment on above: Order Comment: Speci men Type: URINE SPECIMENOrdering Facility: [facility] Address: [address] [place] [address] Performed By: #### 2 4356-8 ####[facility]ORATORYCLIA [id number] [address] Leukocyte esterase Test strip Ql (U) Negative Normal Negative [facility] Comment on above: Order Comment: Speci men Type: URINE SPECIMENOrdering Facility: [facility] Address: [address] [place] [address] Performed By: #### 2 4356-8 ####[facility] LABORATORYCLIA [id number] [address] [place] Nitrite Ql (U) Negative Normal Negative [facility] Comment on above: Order Comment: Speci men Type: URINE SPECIMENOrdering Facility: [facility] Address: [address] [place] [address] Performed By: #### 2 4356-8 ####[facility] LABORATORYCLIA [id number] [address] pH (U) 6.0 [pH] Normal 5.0-8.0 [facility] Comment on above: Order Comment: Speci men Type: URINE SPECIMENOrdering Facility: [facility] Address: [address] [place] [address] Performed By: #### 2 4356-8 ####[facility] LABORATORYCLIA [id number] [address] [place] Protein (U) [Mass/Vol] 1+ Abnormal Negative [facility] Comment on above: Order Comment: Speci men Type: URINE SPECIMENOrdering Facility: [facility] Address: [address] [place] [address] Performed By: #### 2 4356-8 ####[facility] LABORATORYCLIA [id number] [address] [place] RBC LM.HPF (Urine sed) [#/Area] 0-3 /HPF Normal 0-3 /HPF [facility] Comment on above: Order Comment: Speci men Type: URINE SPECIMENOrdering Facility: [facility] Address: [address] [place] [address] Performed By: #### 2 4356-8 ####[facility] LABORATORYCLIA [id number] [address] [place] Specific gravity (U) [Rel density] 1.018 Normal 1.005-1.030 [facility] Comment on above: Order Comment: Speci men Type: URINE SPECIMENOrdering Facility: [facility] Address: [address] [place] [address] Performed By: #### 2 4356-8 ####[facility] LABORATORYCLIA [id number] [address] Urobilinogen Ql (U) Normal Normal Negative [facility] Comment on above: Order Comment: Speci men Type: URINE SPECIMENOrdering Facility: [facility] Address: [address] [place] [address] Performed By: #### 2 4356-8 ####[facility]ITALCLIA [id number] [address] WBC LM.HPF (Urine sed) [#/Area] 0-5 /HPF Normal 0-5 /HPF [facility] Comment on above: Order Comment: Speci men Type: URINE SPECIMENOrdering Facility: [facility] Address: [address] [place] [address] Performed By: #### 2 4356-8 ####[facility] LABORATORYCLIA [id number] [address] Vancomycin random [Mass/Vol] on 07-23-2021 Vancomycin [Mass/Vol] 12.9 ug/mL Normal 10.0-20.0 [facility] Comment on above: Order Comment: Speci men Type: BLOOD SPECIMENOrdering Facility: [facility] Address: [address] [place] [address] Result Comment: Refe rence ranges and high/low indicator flags are provided as general guidelines only. The treating physician must determine appropriate target levels/dosing based on the specific clinical situation. Performed By: #### 4 091-5 ####[facility] LABORATORYCLIA [id number] [address] [place] XR CHEST 1V FRONTALon 2021 XR CHEST 1V FRONTAL Normal [facility] XR CHEST 1V FRONTAL Normal [facility] aPTT PPPon 07-23-2021 aPTT Coag (PPP) [Time] 32.3 s Normal 23.0-32.4 [facility] Comment on above: Order Comment: Speci men Type: BLOOD SPECIMENOrdering Facility: [facility] Address: [address] [place] [address] Performed By: #### 1 4979-9 ####[facility] LABORATORYCLIA [id number] [address] [place] [facility] aPTT Coag (PPP) [Time] 57.9 s High 23.0-32.4 [facility] Comment on above: Order Comment: Speci men Type: BLOOD SPECIMENOrdering Facility: [facility] Address: [address] [place] [address] Performed By: #### 1 4979-9 ####[facility] LABORATORYCLIA [id number] [address] [place] [facility] aPTT Coag (PPP) [Time] 46.3 s High 23.0-32.4 [facility] Comment on above: Order Comment: Speci men Type: BLOOD SPECIMENOrdering Facility: [facility] Address: [address] [place] [address] Performed By: #### 1 4979-9 ####[facility] LABORATORYCLIA [id number] [place] [address] [place] Basic metabolic 2000 panelon 07-22-2021 Anion gap [Moles/Vol] 8 mmol/L Low 9-18 [facility] Comment on above: Order Comment: Speci men Type: BLOOD SPECIMENOrdering Facility: [facility] Address: [address] [place] [address] Performed By: #### 2 4321-2 ####[facility] LABORATORYCLIA [id number] [address] [facility] Calcium [Mass/Vol] 9.5 mg/dL Normal 8.5-10.2 [facility] Comment on above: Order Comment: Speci men Type: BLOOD SPECIMENOrdering Facility: [facility] Address: [address] [place] [place] [address] Performed By: #### 2 4321-2 ####[facility] LABORATORYCLIA [id number] [address] [place] Chloride [Moles/Vol] 105 mmol/L Normal 97-105 [facility] Comment on above: Order Comment: Speci men Type: BLOOD SPECIMENOrdering Facility: [facility] Address: [address] [place] [address] Performed By: #### 2 4321-2 ####[facility] LABORATORYCLIA [id number] [address] [place] CO2 [Moles/Vol] 32 mmol/L High 22-30 [facility] Comment on above: Order Comment: Speci men Type: BLOOD SPECIMENOrdering Facility: [facility] Address: [address] [place] [address] Performed By: #### 2 4321-2 ####[facility] LABORATORYCLIA [id number] [address] [place] [facility] Creatinine [Mass/Vol] 0.75 mg/dL Normal 0.73-1.22 [facility] Comment on above: Order Comment: Speci men Type: BLOOD SPECIMENOrdering Facility: [facility] Address: [address] [place] [address] Performed By: #### 2 4321-2 ####[facility] LABORATORYCLIA [id number] [address] ESTIMATED GLOMERULAR FILTRATION RATE 98 mL/min/1.73m??? Normal >=60 [facility] Comment on above: Order Comment: Speci men Type: BLOOD SPECIMENOrdering Facility: [facility] Address: [address] [place] [address] Result Comment: Luzmaria mated Glomerular Filtration Rate [...] actual GFR. Performed By: #### 2 4321-2 ####[facility] LABORATORYCLIA [id number] [place] [address] [place] Glucose [Mass/Vol] 128 mg/dL High 74-99 [facility] Comment on above: Order Comment: Shira feldman Type: BLOOD SPECIMENOrdering Facility: [facility] Address: [address] [place] [address] Result Comment: The [place] Diabetes Association (ADA) provides guidance for cutoff [...] Standards of Medical Care in Diabetes 2016, [place] [employer] Association. Diabetes Care. 2016.39(Suppl 1). Performed By: #### 2 4321-2 ####[facility] LABORATORYCLIA [id number] [place] [address] [place] Potassium [Moles/Vol] 3.7 mmol/L Normal 3.7-5.1 [facility] Comment on above: Order Comment: Shira feldman Type: BLOOD SPECIMENOrdering Facility: [facility] Address: [address] [address] Performed By: #### 2 4321-2 ####[facility] LABORATORYCLIA [id number] [place] [address] [place] Sodium [Moles/Vol] 145 mmol/L High 136-144 [facility] Comment on above: Order Comment: Shira feldman Type: BLOOD SPECIMENOrdering Facility: [facility] Address: [address] [address] Performed By: #### 2 4321-2 ####[facility] LABORATORYCLIA [id number] [place] [address] [place] Urea nitrogen [Mass/Vol] 39 mg/dL High 9-24 [facility] Comment on above: Order Comment: Speci men Type: BLOOD SPECIMENOrdering Facility: [facility] Address: [address] [place] [address] Performed By: #### 2 4321-2 ####[facility] LABORATORYCLIA [id number] [place] [id number] [place] CASE MANAGEMon 07-22-2021 CASE MANAGEM Normal [facility] CBC W Auto Differential pane l (Bld)on 07-22-2021 Basophils (Bld) [#/Vol] 0.06 10*3/uL Normal <0.11 [facility] Comment on above: Order Comment: Speci men Type: BLOOD SPECIMENOrdering Facility: [facility] Address: [address] [place] [address] Performed By: #### 5 7021-8 ####[facility] LABORATORYCLIA [id number] [address] [place] Basophils/100 WBC (Bld) 0.5 % Normal [facility] Comment on above: Order Comment: Speci men Type: BLOOD SPECIMENOrdering Facility: [facility] Address: [address] [place] [address] Performed By: #### 5 7021-8 ####[facility] LABORATORYCLIA [id number] [address] [place] Differential cell count method Nom (Bld) Auto Normal [facility] Comment on above: Order Comment: Speci men Type: BLOOD SPECIMENOrdering Facility: [facility] Address: [address] [place] [address] Performed By: #### 5 7021-8 ####[facility] LABORATORYCLIA [id number] [place] [address] [place] Eosinophils (Bld) [#/Vol] 0.44 10*3/uL Normal <0.46 [facility] Comment on above: Order Comment: Speci men Type: BLOOD SPECIMENOrdering Facility: [facility] Address: [address] [place] [address] Performed By: #### 5 7021-8 ####[facility] LABORATORYCLIA [id number] [address] [place] Eosinophils/100 WBC (Bld) 3.9 % Normal [facility] Comment on above: Order Comment: Speci men Type: BLOOD SPECIMENOrdering Facility: [facility] Address: [address] [place] [address] Performed By: #### 5 7021-8 ####[facility] LABORATORYCLIA [id number] [address] [place] Erythrocyte distribution width (RBC) [Ratio] 17.0 % High 11.5-15.0 [facility] Comment on above: Order Comment: Speci men Type: BLOOD SPECIMENOrdering Facility: [facility] Address: [address] [place] [address] Performed By: #### 5 7021-8 ####[facility] LABORATORYCLIA [id number] [address] [place] Hematocrit (Bld) [Volume fraction] 32.0 % Low 39.0-51.0 [facility] Comment on above: Order Comment: Speci men Type: BLOOD SPECIMENOrdering Facility: [facility] Address: [address] [place] [address] Performed By: #### 5 7021-8 ####[facility] ASSOCIATION LABORATORYCLIA [id number] [address] [place] Hemoglobin (Bld) [Mass/Vol] 9.3 g/dL Low 13.0-17.0 [facility] Comment on above: Order Comment: Speci men Type: BLOOD SPECIMENOrdering Facility: [facility] Address: [address] [place] [address] Performed By: #### 5 7021-8 ####[facility] GENERAL LABORATORYCLIA [id number] [address] IMMATURE GRAN % 0.5 % Normal [facility] Comment on above: Order Comment: Speci men Type: BLOOD SPECIMENOrdering Facility: [facility] Address: [address] [place] [address] Performed By: #### 5 7021-8 ####[facility] ASSOCIATION LABORATORYCLIA [id number] [address] IMMATURE GRAN ABS 0.06 k/uL Normal <0.10 [facility] Comment on above: Order Comment: Speci men Type: BLOOD SPECIMENOrdering Facility: [facility] Address: [address] [place] [address] Performed By: #### 5 7021-8 ####[facility] ASSOCIATION LABORATORYCLIA [id number] [address] Lymphocytes (Bld) [#/Vol] 1.83 10*3/uL Normal 1.00-4.00 [facility] Comment on above: Order Comment: Speci men Type: BLOOD SPECIMENOrdering Facility: [facility] Address: [address] [place] [address] Performed By: #### 5 7021-8 ####[facility] ASSOCIATION LABORATORYCLIA [id number] [address] Lymphocytes/100 WBC (Bld) 16.1 % Normal [facility] Comment on above: Order Comment: Speci men Type: BLOOD SPECIMENOrdering Facility: [facility] Address: [address] [place] [address] Performed By: #### 5 7021-8 ####[facility] ASSOCIATION LABORATORYCLIA [id number] [address] MCH (RBC) [Entitic mass] 27.0 pg Normal 26.0-34.0 [facility] Comment on above: Order Comment: Speci men Type: BLOOD SPECIMENOrdering Facility: [facility] Address: [address] [place] [address] Performed By: #### 5 7021-8 ####[facility] ASSOCIATION LABORATORYCLIA [id number] [address] [place] MCHC (RBC) [Mass/Vol] 29.1 g/dL Low 30.5-36.0 [facility] Comment on above: Order Comment: Speci men Type: BLOOD SPECIMENOrdering Facility: [facility] Address: [address] [place] [address] Performed By: #### 5 7021-8 ####[facility] ASSOCIATION LABORATORYCLIA [id number] [address] [place] MCV (RBC) [Entitic vol] 92.8 fL Normal 80.0-100.0 [facility] Comment on above: Order Comment: Speci men Type: BLOOD SPECIMENOrdering Facility: [facility] Address: [address] [place] [address] Performed By: #### 5 7021-8 ####[facility] ASSOCIATION LABORATORYCLIA [id number] [address] [place] [facility] Monocytes (Bld) [#/Vol] 0.87 10*3/uL High <0.87 [facility] Comment on above: Order Comment: Speci men Type: BLOOD SPECIMENOrdering Facility: [facility] Address: [address] [place] [address] Performed By: #### 5 7021-8 ####[facility] ASSOCIATION LABORATORYCLIA [id number] [address] Monocytes/100 WBC (Bld) 7.6 % Normal [facility] Comment on above: Order Comment: Speci men Type: BLOOD SPECIMENOrdering Facility: [facility] Address: [address] [place] [address] Performed By: #### 5 7021-8 ####[facility] ASSOCIATION LABORATORYCLIA [id number] [address] [place] Neutrophils (Bld) [#/Vol] 8.12 10*3/uL High 1.45-7.50 [facility] Comment on above: Order Comment: Speci men Type: BLOOD SPECIMENOrdering Facility: [facility] Address: [address] [place] [address] Performed By: #### 5 7021-8 ####[facility] LABORATORYCLIA [id number] [address] Neutrophils/100 WBC (Bld) 71.4 % Normal [facility] Comment on above: Order Comment: Speci men Type: BLOOD SPECIMENOrdering Facility: [facility] Address: [address] [place] [address] Performed By: #### 5 7021-8 ####[facility] ASSOCIATION LABORATORYCLIA [id number] [address] [place] Nucleated RBC (Bld) [#/Vol] 10*3/uL Normal <0.01 [facility] Comment on above: Order Comment: Speci men Type: BLOOD SPECIMENOrdering Facility: [facility] Address: [address] [place] [address] Performed By: #### 5 7021-8 ####[facility] ASSOCIATION LABORATORYCLIA [id number] [address] STATES [facility] Nucleated RBC/100 WBC (Bld) [Ratio] 0.0 /100 WBC Normal [facility] Comment on above: Order Comment: Speci men Type: BLOOD SPECIMENOrdering Facility: [facility] Address: [address] [place] [address] Performed By: #### 5 7021-8 ####[facility] ASSOCIATION LABORATORYCLIA [id number] [address] [place] Platelet mean volume (Bld) [Entitic vol] 10.8 fL Normal 9.0-12.7 [facility] Comment on above: Order Comment: Speci men Type: BLOOD SPECIMENOrdering Facility: [facility] Address: [address] [place] [address] Performed By: #### 5 7021-8 ####[facility] ASSOCIATION LABORATORYCLIA [id number] [place] [address] [place] Platelets (Bld) [#/Vol] 362 10*3/uL Normal 150-400 [facility] Comment on above: Order Comment: Speci men Type: BLOOD SPECIMENOrdering Facility: [facility] Address: [address] [place] [address] Performed By: #### 5 7021-8 ####[facility] ASSOCIATION LABORATORYCLIA [id number] [place] [address] [place] RBC (Bld) [#/Vol] 3.45 10*6/uL Low 4.20-6.00 [facility] Comment on above: Order Comment: Speci men Type: BLOOD SPECIMENOrdering Facility: [facility] Address: [address] [place] [address] Performed By: #### 5 7021-8 ####[facility]PITALCLIA [id number] [address] WBC (Bld) [#/Vol] 11.38 10*3/uL High 3.70-11.00 [facility] Comment on above: Order Comment: Speci men Type: BLOOD SPECIMENOrdering Facility: [facility] Address: [address] [place] [address] Performed By: #### 5 7021-8 ####[facility] ASSOCIATION LABORATORYCLIA [id number] [address] Magnesium SerPl-mCncon 07-22 Magnesium [Mass/Vol] 2.3 mg/dL Normal 1.7-2.3 [facility] Comment on above: Order Comment: Speci men Type: BLOOD SPECIMENOrdering Facility: [facility] Address: [address] [place] [address] Performed By: #### 1 9123-9, 2777-1, 25683-8 ####[facility] ASSOCIATION LABORATORYCLIA [id number] [address] [place] NT-proBNP SerPl-mCncon 07-22 Natriuretic peptide.B prohormone N-Terminal [Mass/Vol] 328 pg/mL High <125 [facility] Comment on above: Order Comment: Speci men Type: BLOOD SPECIMENOrdering Facility: [facility] Address: [address] [place] [address] Performed By: #### 1 9123-9, 2777-1, 01418-5 ####[facility] ASSOCIATION LABORATORYCLIA [id number] [address] [place] [facility] NURSING PROGon 07-22-2021 NURSING PROG Normal [facility] NUTRITIONon 07-22-2021 NUTRITION Normal [facility] Phosphate SerPl-mCncon 07-22 Phosphate [Mass/Vol] 3.5 mg/dL Normal 2.7-4.8 [facility] Comment on above: Order Comment: Speci men Type: BLOOD SPECIMENOrdering Facility: [facility] Address: [address] [place] [address] Performed By: #### 1 9123-9, 2777-1, 91659-6 ####[facility] ASSOCIATION LABORATORYCLIA [id number] [address] THERAPY NTon 07-22-2021 THERAPY NT Normal [facility] THERAPY NT Normal [facility] aPTT PPPon 07-22-2021 aPTT Coag (PPP) [Time] 50.1 s High 23.0-32.4 [facility] Comment on above: Order Comment: Speci men Type: BLOOD SPECIMENOrdering Facility: [facility] Address: [address] [place] [address] Performed By: #### 1 4979-9 ####[facility] ASSOCIATION LABORATORYCLIA [id number] [address] [place] ALLIED HEALTHon 07-21-2021 ALLIED HEALTH Normal [facility] Bacteria Spec Resp Culton Bacteria identified Respiratory culture Nom (Unsp spec) Abnormal [facility] Comment on above: Performed By: #### 3 2355-0 ####[facility] ASSOCIATION LABORATORYCLIA [id number] [address] [place] Basic metabolic 2000 panelon 07-21-2021 Anion gap [Moles/Vol] 9 mmol/L Normal 9-18 [facility] Comment on above: Order Comment: Speci men Type: BLOOD SPECIMENOrdering Facility: [facility] Address: [address] [place] [address] Performed By: #### 1 9123-9, 2777-1, 73619-3 ####[facility] LABORATORYCLIA [id number] [place] [address] [place] Calcium [Mass/Vol] 9.9 mg/dL Normal 8.5-10.2 [facility] Comment on above: Order Comment: Speci men Type: BLOOD SPECIMENOrdering Facility: [facility] Address: [address] [place] [address] Performed By: #### 1 9123-9, 2777-1, 17343-3 ####[facility] ASSOCIATION LABORATORYCLIA [id number] [address] [place] [facility] Chloride [Moles/Vol] 103 mmol/L Normal 97-105 [facility] Comment on above: Order Comment: Speci men Type: BLOOD SPECIMENOrdering Facility: [facility] Address: [address] [place] [address] Performed By: #### 1 9123-9, 2777-1, 64180-9 ####[facility] ASSOCIATION LABORATORYCLIA [id number] [place] [address] [place] CO2 [Moles/Vol] 33 mmol/L High 22-30 [facility] Comment on above: Order Comment: Speci men Type: BLOOD SPECIMENOrdering Facility: [facility] Address: [address] [place] [address] Performed By: #### 1 9123-9, 2777-1, 30472-8 ####[facility] GENERAL LABORATORYCLIA [id number] [place] [address] [place] Creatinine [Mass/Vol] 0.80 mg/dL Normal 0.73-1.22 [facility] Comment on above: Order Comment: Speci men Type: BLOOD SPECIMENOrdering Facility: [facility] Address: [address] [place] [address] Performed By: #### 1 9123-9, 2777-1, 39349-6 ####[facility] [id number] [place] [id number] [place] ESTIMATED GLOMERULAR FILTRATION RATE 96 mL/min/1.73m??? Normal >=60 [facility] Comment on above: Order Comment: Shira feldman Type: BLOOD SPECIMENOrdering Facility: [facility] Address: [address] [place] [address] Result Comment: Luzmaria mated Glomerular Filtration Rate [...] GFR. Performed By: #### 1 9123-9, 2777-1, 42953-8 ####[facility] [id number] [place] [address] [place] Glucose [Mass/Vol] 148 mg/dL High 74-99 [facility] Comment on above: Order Comment: Shira feldman Type: BLOOD SPECIMENOrdering Facility: [facility] Address: [address] [place] [address] Result Comment: The [place] [employer] (ADA) provides guidance for cutoff [...] Standards of Medical Care in Diabetes 2016, [place] [employer]. Diabetes Care. 2016.39(Suppl 1). Performed By: #### 1 9123-9, 2777-, 96328-0 ####[facility] ASSOCIATION LABORATORYCLIA [id number] [address] [place] Potassium [Moles/Vol] 4.1 mmol/L Normal 3.7-5.1 [facility] Comment on above: Order Comment: Speci men Type: BLOOD SPECIMENOrdering Facility: [facility] Address: [address] [place] [address] Performed By: #### 1 9123-9, 2777-, 66680-7 ####[facility] ASSOCIATION LABORATORYCLIA [id number] [address] STATES [facility] Sodium [Moles/Vol] 145 mmol/L High 136-144 [facility] Comment on above: Order Comment: Speci men Type: BLOOD SPECIMENOrdering Facility: [facility] Address: [address] [place] [address] Performed By: #### 1 9123-9, 2777-, 55130-7 ####[facility] ASSOCIATION LABORATORYCLIA [id number] [address] STATES [facility] Urea nitrogen [Mass/Vol] 40 mg/dL High 9-24 [facility] Comment on above: Order Comment: Speci men Type: BLOOD SPECIMENOrdering Facility: [facility] Address: [address] [place] [address] Performed By: #### 1 9123-9, 2777-, 62906-9 ####[facility] ASSOCIATION LABORATORYCLIA [id number] [address] [place] [facility] CBC W Auto Differential pane l (Bld)on 07-21-2021 Basophils (Bld) [#/Vol] 0.06 10*3/uL Normal <0.11 [facility] Comment on above: Order Comment: Speci men Type: BLOOD SPECIMENOrdering Facility: [facility] Address: [address] [place] [address] Performed By: #### 5 7021-8 ####[facility] ASSOCIATION LABORATORYCLIA [id number] [address] [place] Basophils/100 WBC (Bld) 0.4 % Normal [facility] Comment on above: Order Comment: Speci men Type: BLOOD SPECIMENOrdering Facility: [facility] Address: [facility] [place] [address] Performed By: #### 5 7021-8 ####[facility] ASSOCIATION LABORATORYCLIA [id number] [address] [place] Differential cell count method Nom (Bld) Auto Normal [facility] Comment on above: Order Comment: Speci men Type: BLOOD SPECIMENOrdering Facility: [facility] Address: [address] [place] [address] Performed By: #### 5 7021-8 ####[facility] ASSOCIATION LABORATORYCLIA [id number] [address] [place] Eosinophils (Bld) [#/Vol] 0.04 10*3/uL Normal <0.46 [facility] Comment on above: Order Comment: Speci men Type: BLOOD SPECIMENOrdering Facility: [facility] Address: [address] [place] [address] Performed By: #### 5 7021-8 ####[facility] ASSOCIATION LABORATORYCLIA [id number] [address] [place] Eosinophils/100 WBC (Bld) 0.3 % Normal [facility] Comment on above: Order Comment: Speci men Type: BLOOD SPECIMENOrdering Facility: [facility] Address: [address] [place] [address] Performed By: #### 5 7021-8 ####[facility] ASSOCIATION LABORATORYCLIA [id number] [address] [place] Erythrocyte distribution width (RBC) [Ratio] 17.0 % High 11.5-15.0 [facility] Comment on above: Order Comment: Speci men Type: BLOOD SPECIMENOrdering Facility: [facility] Address: [address] [place] [address] Performed By: #### 5 7021-8 ####[facility] ASSOCIATION LABORATORYCLIA [id number] [address] Hematocrit (Bld) [Volume fraction] 33.1 % Low 39.0-51.0 [facility] Comment on above: Order Comment: Speci men Type: BLOOD SPECIMENOrdering Facility: [facility] Address: [address] [place] [address] Performed By: #### 5 7021-8 ####[facility] ASSOCIATION LABORATORYCLIA [id number] [address] Hemoglobin (Bld) [Mass/Vol] 9.7 g/dL Low 13.0-17.0 [facility] Comment on above: Order Comment: Speci men Type: BLOOD SPECIMENOrdering Facility: [facility] Address: [address] [place] [address] Performed By: #### 5 7021-8 ####[facility] ASS[facility] LABORATORYCLIA [id number] [address] IMMATURE GRAN % 0.5 % Normal [facility] Comment on above: Order Comment: Speci men Type: BLOOD SPECIMENOrdering Facility: [facility] Address: [address] [place] [address] Performed By: #### 5 7021-8 ####[facility] ASS[facility]IATION LABORATORYCLIA [id number] [address] IMMATURE GRAN ABS 0.07 k/uL Normal <0.10 [facility] Comment on above: Order Comment: Speci men Type: BLOOD SPECIMENOrdering Facility: [facility] Address: [address] [place] [address] Performed By: #### 5 7021-8 ####[facility] ASSOCIATION LABORATORYCLIA [id number] [address] Lymphocytes (Bld) [#/Vol] 1.99 10*3/uL Normal 1.00-4.00 [facility] Comment on above: Order Comment: Speci men Type: BLOOD SPECIMENOrdering Facility: [facility] Address: [address] [place] [address] Performed By: #### 5 7021-8 ####[facility] ASS[facility]IATION LABORATORYCLIA [id number] [address] Lymphocytes/100 WBC (Bld) 13.4 % Normal [facility] Comment on above: Order Comment: Speci men Type: BLOOD SPECIMENOrdering Facility: [facility] Address: [address] [place] [address] Performed By: #### 5 7021-8 ####[facility] ASS[facility]IATION LABORATORYCLIA [id number] [address] MCH (RBC) [Entitic mass] 27.2 pg Normal 26.0-34.0 [facility] Comment on above: Order Comment: Speci men Type: BLOOD SPECIMENOrdering Facility: [facility] Address: [address] [place] [address] Performed By: #### 5 7021-8 ####[facility] ASS[facility] LABORATORYCLIA [id number] [address] [place] [facility] MCHC (RBC) [Mass/Vol] 29.3 g/dL Low 30.5-36.0 [facility] Comment on above: Order Comment: Speci men Type: BLOOD SPECIMENOrdering Facility: [facility] Address: [address] [place] [address] Performed By: #### 5 7021-8 ####[facility] ASS[facility] LABORATORYCLIA [id number] [address] MCV (RBC) [Entitic vol] 92.7 fL Normal 80.0-100.0 [facility] Comment on above: Order Comment: Speci men Type: BLOOD SPECIMENOrdering Facility: [facility] Address: [address] [place] [address] Performed By: #### 5 7021-8 ####[facility] ASS[facility] LABORATORYCLIA [id number] [address] Monocytes (Bld) [#/Vol] 1.10 10*3/uL High <0.87 [facility] Comment on above: Order Comment: Speci men Type: BLOOD SPECIMENOrdering Facility: [facility] Address: [address] [place] [address] Performed By: #### 5 7021-8 ####[facility]ORATORYCLIA [id number] [address] [place] Monocytes/100 WBC (Bld) 7.4 % Normal [facility] Comment on above: Order Comment: Speci men Type: BLOOD SPECIMENOrdering Facility: [facility] Address: [address] [place] [address] Performed By: #### 5 7021-8 ####[facility]ORATORYCLIA [id number] [address] [place] Neutrophils (Bld) [#/Vol] 11.61 10*3/uL High 1.45-7.50 [facility] Comment on above: Order Comment: Speci men Type: BLOOD SPECIMENOrdering Facility: [facility] Address: [address] [place] [address] Performed By: #### 5 7021-8 ####[facility]ORATORYCLIA [id number] [address] [place] Neutrophils/100 WBC (Bld) 78.0 % Normal [facility] Comment on above: Order Comment: Speci men Type: BLOOD SPECIMENOrdering Facility: [facility] Address: [address] [place] [address] Performed By: #### 5 7021-8 ####[facility]ORATORYCLIA [id number] [place] [address] [place] Nucleated RBC (Bld) [#/Vol] 10*3/uL Normal <0.01 [facility] Comment on above: Order Comment: Speci men Type: BLOOD SPECIMENOrdering Facility: [facility] Address: [address] [place] [address] Performed By: #### 5 7021-8 ####[facility]ORATORYCLIA [id number] [address] [place] Nucleated RBC/100 WBC (Bld) [Ratio] 0.0 /100 WBC Normal [facility] Comment on above: Order Comment: Speci men Type: BLOOD SPECIMENOrdering Facility: [facility] Address: [address] [place] [address] Performed By: #### 5 7021-8 ####[facility] LABORATORYCLIA [id number] [address] Platelet mean volume (Bld) [Entitic vol] 10.4 fL Normal 9.0-12.7 [facility] Comment on above: Order Comment: Speci men Type: BLOOD SPECIMENOrdering Facility: [facility] Address: [address] [place] [address] Performed By: #### 5 7021-8 ####[facility] LABORATORYCLIA [id number] [address] [place] Platelets (Bld) [#/Vol] 396 10*3/uL Normal 150-400 [facility] Comment on above: Order Comment: Speci men Type: BLOOD SPECIMENOrdering Facility: [facility] Address: [address] [place] [address] Performed By: #### 5 7021-8 ####[facility] LABORATORYCLIA [id number] [address] [place] RBC (Bld) [#/Vol] 3.57 10*6/uL Low 4.20-6.00 [facility] Comment on above: Order Comment: Speci men Type: BLOOD SPECIMENOrdering Facility: [facility] Address: [address] [place] [address] Performed By: #### 5 7021-8 ####[facility] LABORATORYCLIA [id number] [address] [place] WBC (Bld) [#/Vol] 14.87 10*3/uL High 3.70-11.00 [facility] Comment on above: Order Comment: Speci men Type: BLOOD SPECIMENOrdering Facility: [facility] Address: [address] [place] [address] Performed By: #### 5 7021-8 ####[facility] LABORATORYCLIA [id number] [address] Gas and Carbon monoxide pane l (BldV)on 07-21-2021 Base excess Calc (BldV) [Moles/Vol] 7 mmol/L High 0-2 [facility] Comment on above: Order Comment: Speci men Type: VENOUS BLOOD SPECIMENOrdering Facility: [facility] Address: [address] [place] [address] Performed By: #### 2 4344-4 ####[facility] LABORATORYCLIA [id number] [address] [place] [facility] Body temperature 98.6 [degF] Normal [facility] Comment on above: Order Comment: Speci men Type: VENOUS BLOOD SPECIMENOrdering Facility: [facility] Address: [address] [place] [address] Performed By: #### 2 4344-4 ####[facility] LABORATORYCLIA [id number] [address] [place] CALCIUM IONIZED, PH CORRECTED 1.21 mmol/L Normal 1.08-1.30 [facility] Comment on above: Order Comment: Speci men Type: VENOUS BLOOD SPECIMENOrdering Facility: [facility] Address: [address] [place] [address] Performed By: #### 2 4344-4 ####[facility] LABORATORYCLIA [id number] [address] [place] Calcium.ionized (BldV) [Mass/Vol] 1.23 mmol/L Normal 1.08-1.30 [facility] Comment on above: Order Comment: Speci men Type: VENOUS BLOOD SPECIMENOrdering Facility: [facility] Address: [address] [place] [address] Performed By: #### 2 4344-4 ####[facility] LABORATORYCLIA [id number] [address] [place] Carboxyhemoglobin (BldV) [Mass fraction] 2.3 % High 0.0-2.0 [facility] Comment on above: Order Comment: Speci men Type: VENOUS BLOOD SPECIMENOrdering Facility: [facility] Address: [address] [place] [address] Result Comment: Carb oxyhemoglobin Reference Range for Smokers: 2.0-8.0% Performed By: #### 2 4344-4 ####[facility] LABORATORYCLIA [id number] [place] [address] [place] CO2 (BldV) [Partial pressure] 58 mm[Hg] High 42-55 [facility] Comment on above: Order Comment: Speci men Type: VENOUS BLOOD SPECIMENOrdering Facility: [facility] Address: [address] [place] [address] Performed By: #### 2 4344-4 ####[facility] LABORATORYCLIA [id number] [place] [address] [place] CO2 [Moles/Vol] 31 mmol/L High 25-29 [facility] Comment on above: Order Comment: Speci men Type: VENOUS BLOOD SPECIMENOrdering Facility: [facility] Address: [address] [place] [address] Performed By: #### 2 4344-4 ####[facility] LABORATORYCLIA [id number] [place] [address] [place] Glucose [Mass/Vol] 146 mg/dL High 60-105 [facility] Comment on above: Order Comment: Speci men Type: VENOUS BLOOD SPECIMENOrdering Facility: [facility] Address: [address] [place] [address] Performed By: #### 2 4344-4 ####[facility] LABORATORYCLIA [id number] [place] [address] [place] HCO3 (Bld) [Moles/Vol] 33 mmol/L High 24-28 [facility] Comment on above: Order Comment: Speci men Type: VENOUS BLOOD SPECIMENOrdering Facility: [facility] Address: [address] [place] [address] Performed By: #### 2 4344-4 ####[facility] LABORATORYCLIA [id number] [address] Hematocrit (Bld) [Volume fraction] 30.1 % Low 39.0-51.0 [facility] Comment on above: Order Comment: Speci men Type: VENOUS BLOOD SPECIMENOrdering Facility: [facility] Address: [address] [place] [address] Performed By: #### 2 4344-4 ####[facility] LABORATORYCLIA [id number] [address] [facility] Hemoglobin (Bld) [Mass/Vol] 9.7 g/dL Low 13.0-17.0 [facility] Comment on above: Order Comment: Speci men Type: VENOUS BLOOD SPECIMENOrdering Facility: [facility] Address: [address] [place] [address] Performed By: #### 2 4344-4 ####[facility] LABORATORYCLIA [id number] [address] Methemoglobin (Bld) [Mass fraction] % Normal 0.0-1.5 [facility] Comment on above: Order Comment: Speci men Type: VENOUS BLOOD SPECIMENOrdering Facility: [facility] Address: [address] [place] [address] Performed By: #### 2 4344-4 ####[facility] LABORATORYCLIA [id number] [address] O2 THERAPY NC = Nasal Cannula Normal [facility] Comment on above: Order Comment: Speci men Type: VENOUS BLOOD SPECIMENOrdering Facility: [facility] Address: [address] [place] [address] Performed By: #### 2 4344-4 ####[facility] LABORATORYCLIA [id number] [address] Oxygen (BldV) [Partial pressure] 64 mm[Hg] High 35-45 [facility] Comment on above: Order Comment: Speci men Type: VENOUS BLOOD SPECIMENOrdering Facility: [facility] Address: [address] [place] [address] Performed By: #### 2 4344-4 ####[facility] LABORATORYCLIA [id number] [address] [place] Oxygen saturation in Blood 90 % High 60-85 [facility] Comment on above: Order Comment: Speci men Type: VENOUS BLOOD SPECIMENOrdering Facility: [facility] Address: [address] [place] [address] Performed By: #### 2 4344-4 ####[facility] LABORATORYCLIA [id number] [address] [place] Oxyhemoglobin (BldV) [Mass fraction] 87 % High 60-85 [facility] Comment on above: Order Comment: Speci men Type: VENOUS BLOOD SPECIMENOrdering Facility: [facility] Address: [address] [place] [address] Performed By: #### 2 4344-4 ####[facility] LABORATORYCLIA [id number] [place] [address] [place] pH (BldV) 7.38 [pH] Normal 7.32-7.42 [facility] Comment on above: Order Comment: Speci men Type: VENOUS BLOOD SPECIMENOrdering Facility: [facility] Address: [address] [place] [address] Performed By: #### 2 4344-4 ####[facility] LABORATORYCLIA [id number] [place] [address] [place] Potassium [Moles/Vol] 3.8 mmol/L Normal 3.5-5.0 [facility] Comment on above: Order Comment: Speci men Type: VENOUS BLOOD SPECIMENOrdering Facility: [facility] Address: [address] [place] [address] Performed By: #### 2 4344-4 ####[facility]ORATORYCLIA [id number] [address] [place] Sodium [Moles/Vol] 145 mmol/L High 136-144 [facility] Comment on above: Order Comment: Speci men Type: VENOUS BLOOD SPECIMENOrdering Facility: [facility] Address: [address] [place] [place] [address] Performed By: #### 2 4344-4 ####[facility] LABORATORYCLIA [id number] [address] [place] Base excess Calc (BldV) [Moles/Vol] 8 mmol/L High 0-2 [facility] Comment on above: Order Comment: Speci men Type: VENOUS BLOOD SPECIMENOrdering Facility: [facility] Address: [address] [place] [address] Performed By: #### 2 4344-4 ####[facility] LABORATORYCLIA [id number] [address] STATES [facility] Body temperature 100.22 [degF] Normal [facility] Comment on above: Order Comment: Speci men Type: VENOUS BLOOD SPECIMENOrdering Facility: [facility] Address: [address] [place] [address] Performed By: #### 2 4344-4 ####[facility] LABORATORYCLIA [id number] [address] [place] CALCIUM IONIZED, PH CORRECTED 1.25 mmol/L Normal 1.08-1.30 [facility] Comment on above: Order Comment: Speci men Type: VENOUS BLOOD SPECIMENOrdering Facility: [facility] Address: [address] [address] Performed By: #### 2 4344-4 ####[facility] LABORATORYCLIA [id number] [address] [place] Calcium.ionized (BldV) [Mass/Vol] 1.24 mmol/L Normal 1.08-1.30 [facility] Comment on above: Order Comment: Speci men Type: VENOUS BLOOD SPECIMENOrdering Facility: [facility] Address: [address] [place] [address] Performed By: #### 2 4344-4 ####[facility] LABORATORYCLIA [id number] [address] Carboxyhemoglobin (BldV) [Mass fraction] 2.5 % High 0.0-2.0 [facility] Comment on above: Order Comment: Speci men Type: VENOUS BLOOD SPECIMENOrdering Facility: [facility] Address: [address] [address] Result Comment: Carb oxyhemoglobin Reference Range for Smokers: 2.0-8.0% Performed By: #### 2 4344-4 ####[facility] LABORATORYCLIA [id number] [address] CO2 (BldV) [Partial pressure] 53 mm[Hg] Normal 42-55 [facility] Comment on above: Order Comment: Speci men Type: VENOUS BLOOD SPECIMENOrdering Facility: [facility] Address: [address] [place] [address] Performed By: #### 2 4344-4 ####[facility] LABORATORYCLIA [id number] [address] [place] CO2 [Moles/Vol] 31 mmol/L High 25-29 [facility] Comment on above: Order Comment: Speci men Type: VENOUS BLOOD SPECIMENOrdering Facility: [facility] Address: [address] [place] [address] Performed By: #### 2 4344-4 ####[facility] LABORATORYCLIA [id number] [address] [place] CO2 adjusted to patient's actual temperature (BldV) [Partial pressure] 56 mmHg High 42-55 [facility] Comment on above: Order Comment: Speci men Type: VENOUS BLOOD SPECIMENOrdering Facility: [facility] Address: [address] [address] Performed By: #### 2 4344-4 ####[facility] LABORATORYCLIA [id number] [place] [address] [place] Glucose [Mass/Vol] 131 mg/dL High 60-105 [facility] Comment on above: Order Comment: Speci men Type: VENOUS BLOOD SPECIMENOrdering Facility: [facility] Address: [address] [address] Performed By: #### 2 4344-4 ####[facility] LABORATORYCLIA [id number] [place] [address] [place] HCO3 (Bld) [Moles/Vol] 33 mmol/L High 24-28 [facility] Comment on above: Order Comment: Speci men Type: VENOUS BLOOD SPECIMENOrdering Facility: [facility] Address: [address] [place] [address] Performed By: #### 2 4344-4 ####[facility] LABORATORYCLIA [id number] [address] [place] Hematocrit (Bld) [Volume fraction] 30.8 % Low 39.0-51.0 [facility] Comment on above: Order Comment: Speci men Type: VENOUS BLOOD SPECIMENOrdering Facility: [facility] Address: [facility] [place] [address] Performed By: #### 2 4344-4 ####[facility] LABORATORYCLIA [id number] [address] [place] Hemoglobin (Bld) [Mass/Vol] 10.0 g/dL Low 13.0-17.0 [facility] Comment on above: Order Comment: Speci men Type: VENOUS BLOOD SPECIMENOrdering Facility: [facility] Address: [address] [address] Performed By: #### 2 4344-4 ####[facility] LABORATORYCLIA [id number] [address] [place] Methemoglobin (Bld) [Mass fraction] % Normal 0.0-1.5 [facility] Comment on above: Order Comment: Speci men Type: VENOUS BLOOD SPECIMENOrdering Facility: [facility] Address: [address] [address] Performed By: #### 2 4344-4 ####[facility]ORATORYCLIA [id number] [address] O2 THERAPY NC = Nasal Cannula Normal [facility] Comment on above: Order Comment: Speci men Type: VENOUS BLOOD SPECIMENOrdering Facility: [facility] Address: [address] [place] [address] Performed By: #### 2 4344-4 ####[facility]ORATORYCLIA [id number] [address] [place] Oxygen (BldV) [Partial pressure] 58 mm[Hg] High 35-45 [facility] Comment on above: Order Comment: Speci men Type: VENOUS BLOOD SPECIMENOrdering Facility: [facility] Address: [address] [place] [address] Performed By: #### 2 4344-4 ####[facility]ORATORYCLIA [id number] [address] Oxygen adjusted to patient's actual temperature (BldV) [Partial pressure] 61 mmHg High 35-45 [facility] Comment on above: Order Comment: Speci men Type: VENOUS BLOOD SPECIMENOrdering Facility: [facility] Address: [address] [place] [address] Performed By: #### 2 4344-4 ####[facility]ORATORYCLIA [id number] [address] [place] Oxygen saturation in Blood 88 % High 60-85 [facility] Comment on above: Order Comment: Speci men Type: VENOUS BLOOD SPECIMENOrdering Facility: [facility] Address: [address] [place] [address] [place] [address] Performed By: #### 2 4344-4 ####[facility]ORATORYCLIA [id number] [address] Oxyhemoglobin (BldV) [Mass fraction] 85 % Normal 60-85 [facility] Comment on above: Order Comment: Speci men Type: VENOUS BLOOD SPECIMENOrdering Facility: [facility] Address: [address] [address] Performed By: #### 2 4344-4 ####[facility] LABORATORYCLIA [id number] [address] [place] pH (BldV) 7.41 [pH] Normal 7.32-7.42 [facility] Comment on above: Order Comment: Speci men Type: VENOUS BLOOD SPECIMENOrdering Facility: [facility] Address: [address] [place] [address] Performed By: #### 2 4344-4 ####[facility] LABORATORYCLIA [id number] [address] pH adjusted to patient's actual temperature (BldV) 7.40 Normal 7.32-7.42 [facility] Comment on above: Order Comment: Speci men Type: VENOUS BLOOD SPECIMENOrdering Facility: [facility] Address: [address] [place] [address] Performed By: #### 2 4344-4 ####[facility] LABORATORYCLIA [id number] [address] [place] Potassium [Moles/Vol] 4.0 mmol/L Normal 3.5-5.0 [facility] Comment on above: Order Comment: Speci men Type: VENOUS BLOOD SPECIMENOrdering Facility: [facility] Address: [address] [place] [address] Performed By: #### 2 4344-4 ####[facility] LABORATORYCLIA [id number] [address] [place] Sodium [Moles/Vol] 146 mmol/L High 136-144 [facility] Comment on above: Order Comment: Speci men Type: VENOUS BLOOD SPECIMENOrdering Facility: [facility] Address: [address] [place] [address] Performed By: #### 2 4344-4 ####[facility] LABORATORYCLIA [id number] [place] [address] [place] Magnesium SerPl-mCncon 07-21 Magnesium [Mass/Vol] 2.5 mg/dL High 1.7-2.3 [facility] Comment on above: Order Comment: Speci men Type: BLOOD SPECIMENOrdering Facility: [facility] Address: [address] [place] [address] Performed By: #### 1 9123-9, 2777-1, 56109-1 ####[facility] LABORATORYCLIA [id number] [address] [facility] NURSING PROGon 07-21-2021 NURSING PROG Normal [facility] Phosphate SerPl-mCncon 07-21 Phosphate [Mass/Vol] 3.7 mg/dL Normal 2.7-4.8 [facility] Comment on above: Order Comment: Speci men Type: BLOOD SPECIMENOrdering Facility: [facility] Address: [address] [place] [address] Performed By: #### 1 9123-9, 2777-1, 71564-8 ####[facility] LABORATORYCLIA [id number] [address] [facility] THERAPY NTon 07-21-2021 THERAPY NT Normal [facility] XR CHEST 1V FRONTALon 2021 XR CHEST 1V FRONTAL Normal [facility] aPTT PPPon 07-21-2021 aPTT Coag (PPP) [Time] 53.0 s High 23.0-32.4 [facility] Comment on above: Order Comment: Speci men Type: BLOOD SPECIMENOrdering Facility: [facility] Address: [address] [place] [address] Performed By: #### 1 4979-9 ####[facility] LABORATORYCLIA [id number] [address] [place] ALLIED HEALTHon 07-20-2021 ALLIED HEALTH Normal [facility] Basic metabolic 2000 panelon 07-20-2021 Anion gap [Moles/Vol] 8 mmol/L Low 9-18 [facility] Comment on above: Order Comment: Speci men Type: BLOOD SPECIMENOrdering Facility: [facility] Address: [address] [place] [address] Performed By: #### 2 4321-2, , 2776-05 ####[facility]ORATORYCLIA [id number] [place] [address] [place] Calcium [Mass/Vol] 9.7 mg/dL Normal 8.5-10.2 [facility] Comment on above: Order Comment: Speci men Type: BLOOD SPECIMENOrdering Facility: [facility] Address: [address] [place] [address] Performed By: #### 2 4321-2, , 2776-05 ####[facility] LABORATORYCLIA [id number] [place] [address] [place] Chloride [Moles/Vol] 104 mmol/L Normal 97-105 [facility] Comment on above: Order Comment: Speci men Type: BLOOD SPECIMENOrdering Facility: [facility] Address: [address] [place] [address] Performed By: #### 2 4321-2, , 2776-05 ####[facility] LABORATORYCLIA [id number] [place] [address] [place] CO2 [Moles/Vol] 34 mmol/L High 22-30 [facility] Comment on above: Order Comment: Speci men Type: BLOOD SPECIMENOrdering Facility: [facility] Address: [address] [place] [address] Performed By: #### 2 4321-2, , 2776-05 ####[facility]ORATORYCLIA [id number] [place] [address] [place] Creatinine [Mass/Vol] 0.76 mg/dL Normal 0.73-1.22 [facility] Comment on above: Order Comment: Speci men Type: BLOOD SPECIMENOrdering Facility: [facility] Address: [address] [place] [address] Performed By: #### 2 4321-2, , 2776-05 ####[facility] HOSPITALCLIA [id number] [place] [address] [place] ESTIMATED GLOMERULAR FILTRATION RATE 97 mL/min/1.73m??? Normal >=60 [facility] Comment on above: Order Comment: Shira feldman Type: BLOOD SPECIMENOrdering Facility: [facility] Address: [address] [place] [address] Result Comment: Luzmaria mated Glomerular Filtration Rate [...] Performed By: #### 2 4321-2, , 2776-05 ####[facility] [id number] [place] [id number] [place] Glucose [Mass/Vol] 123 mg/dL High 74-99 [facility] Comment on above: Order Comment: Shira francia Type: BLOOD SPECIMENOrdering Facility: [facility] Address: [address] [place] [address] Result Comment: The [place] [employer] (ADA) provides guidance for cutoff [...] Standards of Medical Care in Diabetes 2016, [place] [employer]. Diabetes Care. 2016.39(Suppl 1). Performed By: #### 2 4321-2, 90781-7, 2776-05 ####[facility] LABORATORYCLIA [id number] [place] [id number] [place] Potassium [Moles/Vol] 4.4 mmol/L Normal 3.7-5.1 [facility] Comment on above: Order Comment: Speci men Type: BLOOD SPECIMENOrdering Facility: [facility] Address: [address] [place] [address] Performed By: #### 2 4321-2, , 2776-05 ####[facility]ORATORYCLIA [id number] [place] [address] [place] Sodium [Moles/Vol] 146 mmol/L High 136-144 [facility] Comment on above: Order Comment: Speci men Type: BLOOD SPECIMENOrdering Facility: [facility] Address: [address] [place] [address] Performed By: #### 2 4321-2, , 2776-05 ####[facility] LABORATORYCLIA [id number] [address] STATES [facility] Urea nitrogen [Mass/Vol] 38 mg/dL High 9-24 [facility] Comment on above: Order Comment: Speci men Type: BLOOD SPECIMENOrdering Facility: [facility] Address: [address] [place] [address] Performed By: #### 2 4321-2, , 2776-05 ####[facility] LABORATORYCLIA [id number] [address] [place] CASE MANAGEMon 07-20-2021 CASE MANAGEM Normal [facility] CBC W Auto Differential pane l (Bld)on 07-20-2021 Basophils (Bld) [#/Vol] 0.05 10*3/uL Normal <0.11 [facility] Comment on above: Order Comment: Speci men Type: BLOOD SPECIMENOrdering Facility: [facility] Address: [address] [place] [address] Performed By: #### 5 7021-8 ####[facility] LABORATORYCLIA [id number] [address] [place] Basophils/100 WBC (Bld) 0.5 % Normal [facility] Comment on above: Order Comment: Speci men Type: BLOOD SPECIMENOrdering Facility: [facility] Address: [address] [place] [address] Performed By: #### 5 7021-8 ####[facility] LABORATORYCLIA [id number] [address] Differential cell count method Nom (Bld) Auto Normal [facility] Comment on above: Order Comment: Speci men Type: BLOOD SPECIMENOrdering Facility: [facility] Address: [address] [place] [address] Performed By: #### 5 7021-8 ####[facility] LABORATORYCLIA [id number] [address] Eosinophils (Bld) [#/Vol] 0.43 10*3/uL Normal <0.46 [facility] Comment on above: Order Comment: Speci men Type: BLOOD SPECIMENOrdering Facility: [facility] Address: [address] [place] [address] Performed By: #### 5 7021-8 ####[facility] LABORATORYCLIA [id number] [address] Eosinophils/100 WBC (Bld) 4.1 % Normal [facility] Comment on above: Order Comment: Speci men Type: BLOOD SPECIMENOrdering Facility: [facility] Address: [address] [place] [address] Performed By: #### 5 7021-8 ####[facility] LABORATORYCLIA [id number] [address] Erythrocyte distribution width (RBC) [Ratio] 16.7 % High 11.5-15.0 [facility] Comment on above: Order Comment: Speci men Type: BLOOD SPECIMENOrdering Facility: [facility] Address: [address] [place] [address] Performed By: #### 5 7021-8 ####[facility] LABORATORYCLIA [id number] [place] [address] [place] Hematocrit (Bld) [Volume fraction] 33.0 % Low 39.0-51.0 [facility] Comment on above: Order Comment: Speci men Type: BLOOD SPECIMENOrdering Facility: [facility] Address: [address] [place] [address] Performed By: #### 5 7021-8 ####[facility] LABORATORYCLIA [id number] [address] [place] Hemoglobin (Bld) [Mass/Vol] 9.7 g/dL Low 13.0-17.0 [facility] Comment on above: Order Comment: Speci men Type: BLOOD SPECIMENOrdering Facility: [facility] Address: [address] [place] [address] Performed By: #### 5 7021-8 ####[facility] LABORATORYCLIA [id number] [address] [place] IMMATURE GRAN % 0.4 % Normal [facility] Comment on above: Order Comment: Speci men Type: BLOOD SPECIMENOrdering Facility: [facility] Address: [address] [place] [address] Performed By: #### 5 7021-8 ####[facility]ATORYCLIA [id number] [address] IMMATURE GRAN ABS 0.04 k/uL Normal <0.10 [facility] Comment on above: Order Comment: Speci men Type: BLOOD SPECIMENOrdering Facility: [facility] Address: [address] [place] [address] Performed By: #### 5 7021-8 ####[facility]ORATORYCLIA [id number] [address] [place] Lymphocytes (Bld) [#/Vol] 1.99 10*3/uL Normal 1.00-4.00 [facility] Comment on above: Order Comment: Speci men Type: BLOOD SPECIMENOrdering Facility: [facility] Address: [address] [place] [address] Performed By: #### 5 7021-8 ####[facility]ORATORYCLIA [id number] [address] Lymphocytes/100 WBC (Bld) 18.8 % Normal [facility] Comment on above: Order Comment: Speci men Type: BLOOD SPECIMENOrdering Facility: [facility] Address: [address] [place] [address] Performed By: #### 5 7021-8 ####[facility] LABORATORYCLIA [id number] [address] MCH (RBC) [Entitic mass] 27.8 pg Normal 26.0-34.0 [facility] Comment on above: Order Comment: Speci men Type: BLOOD SPECIMENOrdering Facility: [facility] Address: [address] [place] [address] Performed By: #### 5 7021-8 ####[facility] LABORATORYCLIA [id number] [address] MCHC (RBC) [Mass/Vol] 29.4 g/dL Low 30.5-36.0 [facility] Comment on above: Order Comment: Speci men Type: BLOOD SPECIMENOrdering Facility: [facility] Address: [address] [place] [address] Performed By: #### 5 7021-8 ####[facility] LABORATORYCLIA [id number] [address] MCV (RBC) [Entitic vol] 94.6 fL Normal 80.0-100.0 [facility] Comment on above: Order Comment: Speci men Type: BLOOD SPECIMENOrdering Facility: [facility] Address: [address] [place] [address] Performed By: #### 5 7021-8 ####[facility] LABORATORYCLIA [id number] [address] Monocytes (Bld) [#/Vol] 0.82 10*3/uL Normal <0.87 [facility] Comment on above: Order Comment: Speci men Type: BLOOD SPECIMENOrdering Facility: [facility] Address: [address] [place] [address] Performed By: #### 5 7021-8 ####[facility] LABORATORYCLIA [id number] [address] [place] Monocytes/100 WBC (Bld) 7.8 % Normal [facility] Comment on above: Order Comment: Speci men Type: BLOOD SPECIMENOrdering Facility: [facility] Address: [address] [place] [address] Performed By: #### 5 7021-8 ####[facility] LABORATORYCLIA [id number] [place] [address] [place] Neutrophils (Bld) [#/Vol] 7.23 10*3/uL Normal 1.45-7.50 [facility] Comment on above: Order Comment: Speci men Type: BLOOD SPECIMENOrdering Facility: [facility] Address: [address] [place] [address] Performed By: #### 5 7021-8 ####[facility]ORATORYCLIA [id number] [address] [place] Neutrophils/100 WBC (Bld) 68.4 % Normal [facility] Comment on above: Order Comment: Speci men Type: BLOOD SPECIMENOrdering Facility: [facility] Address: [address] [place] [address] Performed By: #### 5 7021-8 ####[facility]ORATORYCLIA [id number] [place] [address] [place] Nucleated RBC (Bld) [#/Vol] 10*3/uL Normal <0.01 [facility] Comment on above: Order Comment: Speci men Type: BLOOD SPECIMENOrdering Facility: [facility] Address: [address] [place] [address] Performed By: #### 5 7021-8 ####[facility]ORATORYCLIA [id number] [place] [address] [place] Nucleated RBC/100 WBC (Bld) [Ratio] 0.0 /100 WBC Normal [facility] Comment on above: Order Comment: Speci men Type: BLOOD SPECIMENOrdering Facility: [facility] Address: [address] [place] [address] Performed By: #### 5 7021-8 ####[facility] LABORATORYCLIA [id number] [address] [place] Platelet mean volume (Bld) [Entitic vol] 10.5 fL Normal 9.0-12.7 [facility] Comment on above: Order Comment: Speci men Type: BLOOD SPECIMENOrdering Facility: [facility] Address: [address] [place], [place] [address] Performed By: #### 5 7021-8 ####[facility] LABORATORYCLIA [id number] [address] [place] Platelets (Bld) [#/Vol] 400 10*3/uL Normal 150-400 [facility] Comment on above: Order Comment: Speci men Type: BLOOD SPECIMENOrdering Facility: [facility] Address: [address] [place] [address] Performed By: #### 5 7021-8 ####[facility] LABORATORYCLIA [id number] [address] [place] RBC (Bld) [#/Vol] 3.49 10*6/uL Low 4.20-6.00 [facility] Comment on above: Order Comment: Speci men Type: BLOOD SPECIMENOrdering Facility: [facility] Address: [address] [place], [place] [address] Performed By: #### 5 7021-8 ####[facility] LABORATORYCLIA [id number] [address] [place] WBC (Bld) [#/Vol] 10.56 10*3/uL Normal 3.70-11.00 [facility] Comment on above: Order Comment: Speci men Type: BLOOD SPECIMENOrdering Facility: [facility] Address: [address] [place], [place] [address] Performed By: #### 5 7021-8 ####[facility] LABORATORYCLIA [id number] [address] [facility] CONSULT PROGon 07-20-2021 CONSULT PROG Normal [facility] CT BRAIN WO IVCONon 07-21-[address] BRAIN WO IVCON Normal [facility] Magnesium SerPl-mCncon 07-20 Magnesium [Mass/Vol] 2.4 mg/dL High 1.7-2.3 [facility] Comment on above: Order Comment: Speci men Type: BLOOD SPECIMENOrdering Facility: [facility] Address: [address] [place] [address] Performed By: #### 2 4321-2, , 2777- ####[facility] LABORATORYCLIA [id number] [address] [facility] NUTRITIONon 07-20-2021 NUTRITION Normal [facility] Phosphate SerPl-mCncon 07-20 Phosphate [Mass/Vol] 4.1 mg/dL Normal 2.7-4.8 [facility] Comment on above: Order Comment: Speci men Type: BLOOD SPECIMENOrdering Facility: [facility] Address: [address] [place] [address] Performed By: #### 2 4321-2, , 2777- ####[facility] LABORATORYCLIA [id number] [address] [place] aPTT PPPon 07-20-2021 aPTT Coag (PPP) [Time] 53.6 s High 23.0-32.4 [facility] Comment on above: Order Comment: Speci men Type: BLOOD SPECIMENOrdering Facility: [facility] Address: [address] [place] [address] Performed By: #### 1 4979-9 ####[facility] LABORATORYCLIA [id number] [address] [place] Bacteria CSF Culton 07-20-19 Bacteria identified Cx Nom (CSF) CULTURE, CSF: No growth 14 days GRAM STAIN: No organisms seen No Polymorphonuclear Leukocytes Rare Mononuclear cells Gram stain performed on cytospun specimen. Normal [facility] Comment on above: Performed By: #### 6 06-4 ####[facility] LABORATORYCLIA [id number] [place] [address] [place] CONSULT PROGon 07-19-2021 CONSULT PROG Normal [facility] CSF MANUAL DIFFon 07-19-2021 DIF TTL, CSF 100 cells counted Normal [facility] Comment on above: Order Comment: Speci men Type: CEREBROSPINAL FLUIDOrdering Facility: [facility] Address: [address] [place] [address] Performed By: #### L [id number], 97674-2, [id number] ####[facility] LABORATORYCLIA [id number] [place] [address] [place] EOSIN%, CSF 1 % Normal [facility] Comment on above: Order Comment: Speci men Type: CEREBROSPINAL FLUIDOrdering Facility: [facility] Address: [address] [place] [address] Performed By: #### L [id number], 31347-4, [id number] ####[facility] LABORATORYCLIA [id number] [place] [address] [place] LYMPH%, CSF 67 % Normal 50-90 [facility] Comment on above: Order Comment: Speci men Type: CEREBROSPINAL FLUIDOrdering Facility: [facility] Address: [address] [place] [address] Performed By: #### L [id number], 72054-5, [id number] ####[facility]ATORYCLIA [id number] [place] [address] [place] MACRO%, CSF 1 % High <1 [facility] Comment on above: Order Comment: Speci men Type: CEREBROSPINAL FLUIDOrdering Facility: [facility] Address: [address] [address] Performed By: #### L [id number], 99589-9, [id number] ####[facility]ATORYCLIA [id number] [place] [address] [place] MONO%, CSF 18 % Normal 10-50 [facility] Comment on above: Order Comment: Speci men Type: CEREBROSPINAL FLUIDOrdering Facility: [facility] Address: [address] [place] [address] Performed By: #### L [id number], 52022-0, [id number] ####[facility]ORATORYCLIA [id number] [place] [address] [place] NEUT%, CSF 11 % High 0-3 [facility] Comment on above: Order Comment: Speci men Type: CEREBROSPINAL FLUIDOrdering Facility: [facility] Address: [address] [place] [address] Performed By: #### L [id number], 95162-2, [id number] ####[facility] LABORATORYCLIA [id number] [address] [facility] OTHER CL%, CSF 2 % Normal [facility] Comment on above: Order Comment: Speci men Type: CEREBROSPINAL FLUIDOrdering Facility: [facility] Address: [address] [place] [address] Result Comment: Path review to follow. Performed By: #### L [id number], 47090-7, [id number] ####[facility]ATORYCLIA [id number] [address] [place] CSF PATHOLOGIST INTERP (LAB REFLEX ORDER-NO BILL)on 07-19-2021 CSF STAFF REVIEW [facility] Comment on above: Order Comment: Speci men Type: CEREBROSPINAL FLUIDOrdering Facility: [facility] Address: [address] [place] [address] Performed By: #### L [id number], 59073-1, [id number] ####[facility]ORYCLIA [id number] [address] Pathologist name Reviewed by Wing Cummings MD [facility] Comment on above: Order Comment: Speci men Type: CEREBROSPINAL FLUIDOrdering Facility: [facility] Address: [address] [address] Performed By: #### L [id number], 24431-2, [id number] ####[facility]ATORYCLIA [id number] [address] Cell count panel (CSF)on Clarity (CSF) Clear Normal Clear [facility] Comment on above: Order Comment: Speci men Type: CEREBROSPINAL FLUIDOrdering Facility: [facility] Address: [address] [place] [address] Performed By: #### L [id number], 77198-3, [id number] ####[facility]ATORYCLIA [id number] [address] Clarity (Unsp spec) Not Indicated Normal Clear [facility] Comment on above: Order Comment: Speci men Type: CEREBROSPINAL FLUIDOrdering Facility: [facility] Address: [address] [place] [address] Performed By: #### L [id number], 72093-1, [id number] ####[facility]ORYCLIA [id number] [address] Color (CSF) Colorless Normal Colorless [facility] Comment on above: Order Comment: Speci men Type: CEREBROSPINAL FLUIDOrdering Facility: [facility] Address: [address] [place] [address] Performed By: #### L VL4460, 62784-7, [id number] ####[facility]ORYCLIA [id number] [address] Color (Spun CSF) Not Indicated Normal Colorless [facility] Comment on above: Order Comment: Speci men Type: CEREBROSPINAL FLUIDOrdering Facility: [facility] Address: [facility] [place] [address] Performed By: #### L [id number], 60643-8, [id number] ####[facility]ATORYCLIA [id number] [address] [place] CSF TUBE [employer]BER [employer] Normal [facility] Comment on above: Order Comment: Speci francia Type: CEREBROSPINAL FLUIDOrdering Facility: [facility] Address: [address] [place] [address] Performed By: #### L [id number], 81994-6, [id number] ####[facility] LABORATORYCLIA [id number] [address] [facility] RBC Manual cnt (CSF) [#/Vol] 0 cells/uL Normal 0-5 [facility] Comment on above: Order Comment: Johni men Type: CEREBROSPINAL FLUIDOrdering Facility: [facility] Address: [address] [place] [address] Performed By: #### L NZ9833, 38656-1, [id number] ####[facility] LABORATORYCLIA [id number] [address] WBC Manual cnt (CSF) [#/Vol] 2 cells/uL Normal 0-5 [facility] Comment on above: Order Comment: Johni francia Type: CEREBROSPINAL FLUIDOrdering Facility: [facility] Address: [address] [place] [address] Performed By: #### L ZL9362, 16425-7, [id number] ####[facility] LABORATORYCLIA [id number] [address] [facility] Glucose CSF-mCncon 2 Glucose (CSF) [Mass/Vol] 69 mg/dL Normal 40-70 [facility] Comment on above: Order Comment: [facility] Type: CEREBROSPINAL FLUIDOrdering Facility: [facility] Address: [address] [place] [address] Result Comment: Lumb ar CSF glucose values of healthy patients are approximately 60% of the plasma values and must always be compared with a concurrently measured plasma value for adequate clinical interpretation.References: 1. Glucose HK (GLUC3) [package insert V 12.0 [place]]. [employer], [place], [place]. September 2015. 2. Michelle Moore, Loki, H. (2015). Chapter 7: Glucose and Lactate. F. Irina rose al.(eds.), Cerebrospinal Fluid in Clinical Neurology. [place]: [employer]. Performed By: #### 2 342-4, 2880-3 ####[facility] LABORATORYCLIA [id number] [address] [facility] NURSING PROGon 07-19-2021 NURSING PROG Normal [facility] NURSING PROG Normal [facility] Prot CSF-mCncon 07-19-2021 Protein (CSF) [Mass/Vol] 51 mg/dL High 15 [facility] Comment on above: Order Comment: Speci men Type: CEREBROSPINAL FLUIDOrdering Facility: [facility] Address: [address] [place] [address] Performed By: #### 2 342-4, 2880-3 ####[facility]ORATORYCLIA [id number] [address] THERAPY NTon 07-19-2021 THERAPY NT Normal [facility] Urinalysis complete panel (U )on 07-19-2021 Bilirubin Ql (U) Negative Normal Negative [facility] Comment on above: Order Comment: Speci men Type: URINE SPECIMENOrdering Facility: [facility] Address: [address] [place] [address] Performed By: #### 2 4356-8 ####[facility] LABORATORYCLIA [id number] [address] Clarity (Unsp spec) Clear Normal Clear [facility] Comment on above: Order Comment: Speci men Type: URINE SPECIMENOrdering Facility: [facility] Address: [address] [place] [address] Performed By: #### 2 4356-8 ####[facility]ORATORYCLIA [id number] [address] Color (U) Colorless Normal yellow [facility] Comment on above: Order Comment: Speci men Type: URINE SPECIMENOrdering Facility: [facility] Address: [address] [place] [address] Performed By: #### 2 4356-8 ####[facility]ORATORYCLIA [id number] [address] Glucose Test strip (U) [Mass/Vol] Negative Normal Negative [facility] Comment on above: Order Comment: Speci men Type: URINE SPECIMENOrdering Facility: [facility] Address: [address] [place] [address] Performed By: #### 2 4356-8 ####[facility]ORATORYCLIA [id number] [address] [place] Hemoglobin Ql (U) Trace Abnormal Negative [facility] Comment on above: Order Comment: Speci men Type: URINE SPECIMENOrdering Facility: [facility] Address: [address] [place] [address] Performed By: #### 2 4356-8 ####[facility]ORATORYCLIA [id number] [address] [facility] Hyaline casts (Urine sed) [#/Area] 1-3 /LPF Abnormal 0 /LPF [facility] Comment on above: Order Comment: Speci men Type: URINE SPECIMENOrdering Facility: [facility] Address: [address] [place] [address] Performed By: #### 2 4356-8 ####[facility] LABORATORYCLIA [id number] [address] Ketones Ql (U) Negative Normal Negative [facility] Comment on above: Order Comment: Speci men Type: URINE SPECIMENOrdering Facility: [facility] Address: [address] [place] [address] Performed By: #### 2 4356-8 ####[facility] LABORATORYCLIA [id number] [address] STATES [facility] Leukocyte esterase Test strip Ql (U) Negative Normal Negative [facility] Comment on above: Order Comment: Speci men Type: URINE SPECIMENOrdering Facility: [facility] Address: [address] [place] [address] Performed By: #### 2 4356-8 ####[facility] LABORATORYCLIA [id number] [address] STATES [facility] Nitrite Ql (U) Negative Normal Negative [facility] Comment on above: Order Comment: Speci men Type: URINE SPECIMENOrdering Facility: [facility] Address: [address] [place] [address] Performed By: #### 2 4356-8 ####[facility] LABORATORYCLIA [id number] [address] [place] pH (U) 7.0 [pH] Normal 5.0-8.0 [facility] Comment on above: Order Comment: Speci men Type: URINE SPECIMENOrdering Facility: [facility] Address: [address] [place] [address] Performed By: #### 2 4356-8 ####[facility]ORATORYCLIA [id number] [address] Protein (U) [Mass/Vol] Negative Normal Negative [facility] Comment on above: Order Comment: Speci men Type: URINE SPECIMENOrdering Facility: [facility] Address: [address] [place] [address] Performed By: #### 2 4356-8 ####[facility] LABORATORYCLIA [id number] [address] RBC LM.HPF (Urine sed) [#/Area] 6-10 /HPF Abnormal 0-3 /HPF [facility] Comment on above: Order Comment: Speci men Type: URINE SPECIMENOrdering Facility: [facility] Address: [address] [place] [address] Performed By: #### 2 4356-8 ####[facility]ORATORYCLIA [id number] [address] Specific gravity (U) [Rel density] 1.008 Normal 1.005-1.030 [facility] Comment on above: Order Comment: Speci men Type: URINE SPECIMENOrdering Facility: [facility] Address: [address] [place] [address] Performed By: #### 2 4356-8 ####[facility] LABORATORYCLIA [id number] [address] Urobilinogen Ql (U) Normal Normal Negative [facility] Comment on above: Order Comment: Speci men Type: URINE SPECIMENOrdering Facility: [facility] Address: [address] [place] [address] Performed By: #### 2 4356-8 ####[facility] LABORATORYCLIA [id number] [address] WBC LM.HPF (Urine sed) [#/Area] 0-5 /HPF Normal 0-5 /HPF [facility] Comment on above: Order Comment: Speci men Type: URINE SPECIMENOrdering Facility: [facility] Address: [address] [place] [address] Performed By: #### 2 4356-8 ####[facility]PITALCLIA [id number] [address] Vancomycin random [Mass/Vol] on 07-19-2021 Vancomycin [Mass/Vol] 13.9 ug/mL Normal 10.0-20.0 [facility] Comment on above: Order Comment: Speci men Type: BLOOD SPECIMENOrdering Facility: [facility] Address: [address] [place] [address] Result Comment: Refe rence ranges and high/low indicator flags are provided as general guidelines only. The treating physician must determine appropriate target levels/dosing based on the specific clinical situation. Performed By: #### 4 091-5 ####[facility] LABORATORYCLIA [id number] [address] aPTT PPPon 07-19-2021 aPTT Coag (PPP) [Time] 53.9 s High 23.0-32.4 [facility] Comment on above: Order Comment: Speci men Type: BLOOD SPECIMENOrdering Facility: [facility] Address: [address] [place] [address] Performed By: #### 1 4979-9 ####[facility] LABORATORYCLIA [id number] [place] [address] [place] Basic metabolic 2000 panelon 07-18-2021 Anion gap [Moles/Vol] 6 mmol/L Low 9-18 [facility] Comment on above: Order Comment: Speci men Type: BLOOD SPECIMENOrdering Facility: [facility] Address: [address] [place] [address] Performed By: #### 2 4321-2, , 2776-05 ####[facility] LABORATORYCLIA [id number] [place] [address] [place] Calcium [Mass/Vol] 9.4 mg/dL Normal 8.5-10.2 [facility] Comment on above: Order Comment: Speci men Type: BLOOD SPECIMENOrdering Facility: [facility] Address: [address] [place] [address] Performed By: #### 2 4321-2, , 2776-05 ####[facility] LABORATORYCLIA [id number] [place] [address] [place] Chloride [Moles/Vol] 103 mmol/L Normal 97-105 [facility] Comment on above: Order Comment: Speci men Type: BLOOD SPECIMENOrdering Facility: [facility] Address: [address] [place] [address] Performed By: #### 2 4321-2, , 2776-05 ####[facility] LABORATORYCLIA [id number] [place] [address] [place] CO2 [Moles/Vol] 34 mmol/L High 22-30 [facility] Comment on above: Order Comment: Speci men Type: BLOOD SPECIMENOrdering Facility: [facility] Address: [address] [place] [address] Performed By: #### 2 4321-2, , 2776-05 ####[facility] LABORATORYCLIA [id number] [place] [address] [place] Creatinine [Mass/Vol] 0.75 mg/dL Normal 0.73-1.22 [facility] Comment on above: Order Comment: Shira feldman Type: BLOOD SPECIMENOrdering Facility: [facility] Address: [address] [id number] Performed By: #### 2 4321-2, 16324-5, 2776-05 ####[facility] LABORATORYCLIA [id number] [address] [facility] ESTIMATED GLOMERULAR FILTRATION RATE 98 mL/min/1.73m??? Normal >=60 [facility] Comment on above: Order Comment: Shira feldman Type: BLOOD SPECIMENOrdering Facility: [facility] Address: [address] [address] Result Comment: Luzmaria mated Glomerular Filtration Rate [...] Performed By: #### 2 4321-2, , 2776-05 ####[facility] LABORATORYCLIA [id number] [place] [address] [place] Glucose [Mass/Vol] 125 mg/dL High 74-99 [facility] Comment on above: Order Comment: Shira feldman Type: BLOOD SPECIMENOrdering Facility: [facility] Address: [address] Result Comment: The [place] [employer] (ADA) provides guidance for cutoff [...] Standards of Medical Care in Diabetes 2016, [place] [employer]. Diabetes Care. 2016.39(Suppl 1). Performed By: #### 2 4321-2, , 2776-05 ####[facility] LABORATORYCLIA [id number] [place] [address] [place] Potassium [Moles/Vol] 4.4 mmol/L Normal 3.7-5.1 [facility] Comment on above: Order Comment: Speci men Type: BLOOD SPECIMENOrdering Facility: [facility] Address: [address] [place] [address] Performed By: #### 2 4321-2, , 2776-05 ####[facility] LABORATORYCLIA [id number] [address] [place] Sodium [Moles/Vol] 143 mmol/L Normal 136-144 [facility] Comment on above: Order Comment: Speci men Type: BLOOD SPECIMENOrdering Facility: [facility] Address: [address] [place] [address] Performed By: #### 2 4321-2, , 2776-05 ####[facility] LABORATORYCLIA [id number] [address] [place] Urea nitrogen [Mass/Vol] 33 mg/dL High 9-24 [facility] Comment on above: Order Comment: Speci men Type: BLOOD SPECIMENOrdering Facility: [facility] Address: [address] [place] [address] Performed By: #### 2 4321-2, , 2776-05 ####[facility] LABORATORYCLIA [id number] [place] [address] [place] CASE MANAGEMon 07-18-2021 CASE MANAGEM Normal [facility] CBC W Auto Differential pane l (Bld)on 07-18-2021 Basophils (Bld) [#/Vol] 0.05 10*3/uL Normal <0.11 [facility] Comment on above: Order Comment: Speci men Type: BLOOD SPECIMENOrdering Facility: [facility] Address: [address] [place] [address] Performed By: #### 5 7021-8 ####[facility]ATORYCLIA [id number] [address] Basophils/100 WBC (Bld) 0.5 % Normal [facility] Comment on above: Order Comment: Speci men Type: BLOOD SPECIMENOrdering Facility: [facility] Address: [address] [place] [address] Performed By: #### 5 7021-8 ####[facility] LABORATORYCLIA [id number] [address] Differential cell count method Nom (Bld) Auto Normal [facility] Comment on above: Order Comment: Speci men Type: BLOOD SPECIMENOrdering Facility: [facility] Address: [address] [place] [address] Performed By: #### 5 7021-8 ####[facility] LABORATORYCLIA [id number] [address] [place] Eosinophils (Bld) [#/Vol] 0.44 10*3/uL Normal <0.46 [facility] Comment on above: Order Comment: Speci men Type: BLOOD SPECIMENOrdering Facility: [facility] Address: [address] [place] [address] Performed By: #### 5 7021-8 ####[facility] LABORATORYCLIA [id number] [address] Eosinophils/100 WBC (Bld) 4.3 % Normal [facility] Comment on above: Order Comment: Speci men Type: BLOOD SPECIMENOrdering Facility: [facility] Address: [address] [place] [address] Performed By: #### 5 7021-8 ####[facility]ORATORYCLIA [id number] [address] [place] Erythrocyte distribution width (RBC) [Ratio] 16.6 % High 11.5-15.0 [facility] Comment on above: Order Comment: Speci men Type: BLOOD SPECIMENOrdering Facility: [facility] Address: [address] [place] [address] Performed By: #### 5 7021-8 ####[facility] LABORATORYCLIA [id number] [address] Hematocrit (Bld) [Volume fraction] 32.2 % Low 39.0-51.0 [facility] Comment on above: Order Comment: Speci men Type: BLOOD SPECIMENOrdering Facility: [facility] Address: [address] [place] [address] Performed By: #### 5 7021-8 ####[facility] LABORATORYCLIA [id number] [address] Hemoglobin (Bld) [Mass/Vol] 9.5 g/dL Low 13.0-17.0 [facility] Comment on above: Order Comment: Speci men Type: BLOOD SPECIMENOrdering Facility: [facility] Address: [address] [place] [address] Performed By: #### 5 7021-8 ####[facility] LABORATORYCLIA [id number] [address] IMMATURE GRAN % 0.4 % Normal [facility] Comment on above: Order Comment: Speci men Type: BLOOD SPECIMENOrdering Facility: [facility] Address: [address] [place] [address] Performed By: #### 5 7021-8 ####[facility] LABORATORYCLIA [id number] [address] IMMATURE GRAN ABS 0.04 k/uL Normal <0.10 [facility] Comment on above: Order Comment: Speci men Type: BLOOD SPECIMENOrdering Facility: [facility] Address: [address] [place] [address] Performed By: #### 5 7021-8 ####[facility] LABORATORYCLIA [id number] [address] Lymphocytes (Bld) [#/Vol] 1.71 10*3/uL Normal 1.00-4.00 [facility] Comment on above: Order Comment: Speci men Type: BLOOD SPECIMENOrdering Facility: [facility] Address: [address] [place] [address] Performed By: #### 5 7021-8 ####[facility] LABORATORYCLIA [id number] [address] Lymphocytes/100 WBC (Bld) 16.9 % Normal [facility] Comment on above: Order Comment: Speci men Type: BLOOD SPECIMENOrdering Facility: [facility] Address: [address] [place] [address] Performed By: #### 5 7021-8 ####[facility] LABORATORYCLIA [id number] [address] [place] MCH (RBC) [Entitic mass] 27.9 pg Normal 26.0-34.0 [facility] Comment on above: Order Comment: Speci men Type: BLOOD SPECIMENOrdering Facility: [facility] Address: [address] [place] [address] Performed By: #### 5 7021-8 ####[facility] LABORATORYCLIA [id number] [address] MCHC (RBC) [Mass/Vol] 29.5 g/dL Low 30.5-36.0 [facility] Comment on above: Order Comment: Speci men Type: BLOOD SPECIMENOrdering Facility: [facility] Address: [address] [place] [address] Performed By: #### 5 7021-8 ####[facility] LABORATORYCLIA [id number] [address] STATES [facility] MCV (RBC) [Entitic vol] 94.7 fL Normal 80.0-100.0 [facility] Comment on above: Order Comment: Speci men Type: BLOOD SPECIMENOrdering Facility: [facility] Address: [address] [place] [address] Performed By: #### 5 7021-8 ####[facility]ORATORYCLIA [id number] [place] [address] [place] Monocytes (Bld) [#/Vol] 0.69 10*3/uL Normal <0.87 [facility] Comment on above: Order Comment: Speci men Type: BLOOD SPECIMENOrdering Facility: [facility] Address: [address] [place] [address] Performed By: #### 5 7021-8 ####[facility]ORYCLIA [id number] [address] [place] Monocytes/100 WBC (Bld) 6.8 % Normal [facility] Comment on above: Order Comment: Speci men Type: BLOOD SPECIMENOrdering Facility: [facility] Address: [address] [place] [address] Performed By: #### 5 7021-8 ####[facility] LABORATORYCLIA [id number] [place] [address] [place] Neutrophils (Bld) [#/Vol] 7.19 10*3/uL Normal 1.45-7.50 [facility] Comment on above: Order Comment: Speci men Type: BLOOD SPECIMENOrdering Facility: [facility] Address: [address] [place] [address] Performed By: #### 5 7021-8 ####[facility] LABORATORYCLIA [id number] [address] [place] Neutrophils/100 WBC (Bld) 71.1 % Normal [facility] Comment on above: Order Comment: Speci men Type: BLOOD SPECIMENOrdering Facility: [facility] Address: [address] [place] [address] Performed By: #### 5 7021-8 ####[facility] LABORATORYCLIA [id number] [place] [address] [place] Nucleated RBC (Bld) [#/Vol] 10*3/uL Normal <0.01 [facility] Comment on above: Order Comment: Speci men Type: BLOOD SPECIMENOrdering Facility: [facility] Address: [address] Performed By: #### 5 7021-8 ####[facility] LABORATORYCLIA [id number] [address] Nucleated RBC/100 WBC (Bld) [Ratio] 0.0 /100 WBC Normal [facility] Comment on above: Order Comment: Speci men Type: BLOOD SPECIMENOrdering Facility: [facility] Address: [address] [place] [address] Performed By: #### 5 7021-8 ####[facility] LABORATORYCLIA [id number] [address] [place] Platelet mean volume (Bld) [Entitic vol] 10.3 fL Normal 9.0-12.7 [facility] Comment on above: Order Comment: Speci men Type: BLOOD SPECIMENOrdering Facility: [facility] Address: [address] [place] [address] Performed By: #### 5 7021-8 ####[facility] LABORATORYCLIA [id number] [address] [place] Platelets (Bld) [#/Vol] 403 10*3/uL High 150-400 [facility] Comment on above: Order Comment: Speci men Type: BLOOD SPECIMENOrdering Facility: [facility] Address: [address] [place] [address] Performed By: #### 5 7021-8 ####[facility] LABORATORYCLIA [id number] [address] [place] RBC (Bld) [#/Vol] 3.40 10*6/uL Low 4.20-6.00 [facility] Comment on above: Order Comment: Speci men Type: BLOOD SPECIMENOrdering Facility: [facility] Address: [address] [place] [address] Performed By: #### 5 7021-8 ####[facility] LABORATORYCLIA [id number] [address] [place] WBC (Bld) [#/Vol] 10.12 10*3/uL Normal 3.70-11.00 [facility] Comment on above: Order Comment: Speci men Type: BLOOD SPECIMENOrdering Facility: [facility] Address: [address] [place] [address] Performed By: #### 5 7021-8 ####[facility] LABORATORYCLIA [id number] [address] OF [facility] Magnesium SerPl-mCncon 07-18 Magnesium [Mass/Vol] 2.4 mg/dL High 1.7-2.3 [facility] Comment on above: Order Comment: Speci men Type: BLOOD SPECIMENOrdering Facility: [facility] Address: [address] [place] [address] Performed By: #### 2 4321-2, 09890-3, 2777-1 ####[facility] LABORATORYCLIA [id number] [address] [facility] NURSING PROGon 07-18-2021 NURSING PROG Normal [facility] NURSING PROG Normal [facility] Phosphate SerPl-mCncon 07-18 Phosphate [Mass/Vol] 3.9 mg/dL Normal 2.7-4.8 [facility] Comment on above: Order Comment: Speci men Type: BLOOD SPECIMENOrdering Facility: [facility] Address: [address] [place] [address] Performed By: #### 2 4321-2, , 2777-1 ####[facility] LABORATORYCLIA [id number] [address] THERAPY NTon 07-18-2021 THERAPY NT Normal [facility] aPTT PPPon 07-18-2021 aPTT Coag (PPP) [Time] 52.3 s High 23.0-32.4 [facility] Comment on above: Order Comment: Speci men Type: BLOOD SPECIMENOrdering Facility: [facility] Address: [address] [place] [address] Performed By: #### 1 4979-9 ####[facility]ATORYCLIA [id number] [address] STATES [facility] CBC W Auto Differential pane l (Bld)on 07-17-2021 Basophils (Bld) [#/Vol] 0.05 10*3/uL Normal <0.11 [facility] Comment on above: Order Comment: Speci men Type: BLOOD SPECIMENOrdering Facility: [facility] Address: [address] [place] [address] Performed By: #### 5 7021-8 ####[facility] LABORATORYCLIA [id number] [address] Basophils/100 WBC (Bld) 0.5 % Normal [facility] Comment on above: Order Comment: Speci men Type: BLOOD SPECIMENOrdering Facility: [facility] Address: [address] [place] [address] Performed By: #### 5 7021-8 ####[facility] LABORATORYCLIA [id number] [address] Differential cell count method Nom (Bld) Auto Normal [facility] Comment on above: Order Comment: Speci men Type: BLOOD SPECIMENOrdering Facility: [facility] Address: [address] [place] [address] Performed By: #### 5 7021-8 ####[facility] LABORATORYCLIA [id number] [address] [place] Eosinophils (Bld) [#/Vol] 0.32 10*3/uL Normal <0.46 [facility] Comment on above: Order Comment: Speci men Type: BLOOD SPECIMENOrdering Facility: [facility] Address: [address] [place] [address] Performed By: #### 5 7021-8 ####[facility]ORYCLIA [id number] [address] Eosinophils/100 WBC (Bld) 3.4 % Normal [facility] Comment on above: Order Comment: Speci men Type: BLOOD SPECIMENOrdering Facility: [facility] Address: [address] [place] [address] Performed By: #### 5 7021-8 ####[facility] LABORATORYCLIA [id number] [address] [place] Erythrocyte distribution width (RBC) [Ratio] 16.6 % High 11.5-15.0 [facility] Comment on above: Order Comment: Speci men Type: BLOOD SPECIMENOrdering Facility: [facility] Address: [address] [place] [address] Performed By: #### 5 7021-8 ####[facility] LABORATORYCLIA [id number] [address] Hematocrit (Bld) [Volume fraction] 30.7 % Low 39.0-51.0 [facility] Comment on above: Order Comment: Speci men Type: BLOOD SPECIMENOrdering Facility: [facility] Address: [address] [place] [address] Performed By: #### 5 7021-8 ####[facility] LABORATORYCLIA [id number] [address] [place] Hemoglobin (Bld) [Mass/Vol] 9.0 g/dL Low 13.0-17.0 [facility] Comment on above: Order Comment: Speci men Type: BLOOD SPECIMENOrdering Facility: [facility] Address: [address] [place] [address] Performed By: #### 5 7021-8 ####[facility] LABORATORYCLIA [id number] [address] [place] IMMATURE GRAN % 0.6 % Normal [facility] Comment on above: Order Comment: Speci men Type: BLOOD SPECIMENOrdering Facility: [facility] Address: [address] [place] [address] Performed By: #### 5 7021-8 ####[facility] LABORATORYCLIA [id number] [address] IMMATURE GRAN ABS 0.06 k/uL Normal <0.10 [facility] Comment on above: Order Comment: Speci men Type: BLOOD SPECIMENOrdering Facility: [facility] Address: [address] [place] [address] Performed By: #### 5 7021-8 ####[facility] LABORATORYCLIA [id number] [address] Lymphocytes (Bld) [#/Vol] 1.61 10*3/uL Normal 1.00-4.00 [facility] Comment on above: Order Comment: Speci men Type: BLOOD SPECIMENOrdering Facility: [facility] Address: [address] [place] [address] Performed By: #### 5 7021-8 ####[facility] LABORATORYCLIA [id number] [address] Lymphocytes/100 WBC (Bld) 17.3 % Normal [facility] Comment on above: Order Comment: Speci men Type: BLOOD SPECIMENOrdering Facility: [facility] Address: [address] [place] [address] Performed By: #### 5 7021-8 ####[facility] LABORATORYCLIA [id number] [address] MCH (RBC) [Entitic mass] 26.9 pg Normal 26.0-34.0 [facility] Comment on above: Order Comment: Speci men Type: BLOOD SPECIMENOrdering Facility: [facility] Address: [address] [place] [address] Performed By: #### 5 7021-8 ####[facility] LABORATORYCLIA [id number] [address] MCHC (RBC) [Mass/Vol] 29.3 g/dL Low 30.5-36.0 [facility] Comment on above: Order Comment: Speci men Type: BLOOD SPECIMENOrdering Facility: [facility] Address: [address] [place] [address] Performed By: #### 5 7021-8 ####[facility]ATORYCLIA [id number] [place] [address] [place] MCV (RBC) [Entitic vol] 91.9 fL Normal 80.0-100.0 [facility] Comment on above: Order Comment: Speci men Type: BLOOD SPECIMENOrdering Facility: [facility] Address: [address] [place] [address] Performed By: #### 5 7021-8 ####[facility] LABORATORYCLIA [id number] [address] [place] Monocytes (Bld) [#/Vol] 0.61 10*3/uL Normal <0.87 [facility] Comment on above: Order Comment: Speci men Type: BLOOD SPECIMENOrdering Facility: [facility] Address: [address] [place] [address] Performed By: #### 5 7021-8 ####[facility] LABORATORYCLIA [id number] [address] Monocytes/100 WBC (Bld) 6.6 % Normal [facility] Comment on above: Order Comment: Speci men Type: BLOOD SPECIMENOrdering Facility: [facility] Address: [address] [place] [address] Performed By: #### 5 7021-8 ####[facility] LABORATORYCLIA [id number] [address] [place] Neutrophils (Bld) [#/Vol] 6.64 10*3/uL Normal 1.45-7.50 [facility] Comment on above: Order Comment: Speci men Type: BLOOD SPECIMENOrdering Facility: [facility] Address: [address] [place] [address] Performed By: #### 5 7021-8 ####[facility] LABORATORYCLIA [id number] [address] [place] Neutrophils/100 WBC (Bld) 71.6 % Normal [facility] Comment on above: Order Comment: Speci men Type: BLOOD SPECIMENOrdering Facility: [facility] Address: [address] Performed By: #### 5 7021-8 ####[facility] LABORATORYCLIA [id number] [address] Nucleated RBC (Bld) [#/Vol] 10*3/uL Normal <0.01 [facility] Comment on above: Order Comment: Speci men Type: BLOOD SPECIMENOrdering Facility: [facility] Address: [address] [place] [address] Performed By: #### 5 7021-8 ####[facility] LABORATORYCLIA [id number] [address] [place] Nucleated RBC/100 WBC (Bld) [Ratio] 0.0 /100 WBC Normal [facility] Comment on above: Order Comment: Speci men Type: BLOOD SPECIMENOrdering Facility: [facility] Address: [address] [place] [address] Performed By: #### 5 7021-8 ####[facility] LABORATORYCLIA [id number] [address] [place] Platelet mean volume (Bld) [Entitic vol] 10.1 fL Normal 9.0-12.7 [facility] Comment on above: Order Comment: Speci men Type: BLOOD SPECIMENOrdering Facility: [facility] Address: [address] [place] [address] Performed By: #### 5 7021-8 ####[facility] LABORATORYCLIA [id number] [address] [place] Platelets (Bld) [#/Vol] 387 10*3/uL Normal 150-400 [facility] Comment on above: Order Comment: Speci men Type: BLOOD SPECIMENOrdering Facility: [facility] Address: [address] [place] [address] Performed By: #### 5 7021-8 ####[facility] LABORATORYCLIA [id number] [place] [address] [place] RBC (Bld) [#/Vol] 3.34 10*6/uL Low 4.20-6.00 [facility] Comment on above: Order Comment: Speci men Type: BLOOD SPECIMENOrdering Facility: [facility] Address: [address] [place] [address] Performed By: #### 5 7021-8 ####[facility] LABORATORYCLIA [id number] [address] [place] WBC (Bld) [#/Vol] 9.29 10*3/uL Normal 3.70-11.00 [facility] Comment on above: Order Comment: Speci men Type: BLOOD SPECIMENOrdering Facility: [facility] Address: [address] [place] [address] Performed By: #### 5 7021-8 ####[facility] LABORATORYCLIA [id number] [address] CONSULT PROGon 07-17-2021 CONSULT PROG Normal [facility] Magnesium SerPl-mCncon 07-17 Magnesium [Mass/Vol] 2.3 mg/dL Normal 1.7-2.3 [facility] Comment on above: Order Comment: Speci men Type: BLOOD SPECIMENOrdering Facility: [facility] Address: [address] [place] [address] Performed By: #### 2 777-1, 80821-7 ####[facility] LABORATORYCLIA [id number] [address] [place] NURSING PROGon 07-17-2021 NURSING PROG Normal [facility] NURSING PROG Normal [facility] NURSING PROG Normal [facility] Phosphate SerPl-mCncon 07-17 Phosphate [Mass/Vol] 3.6 mg/dL Normal 2.7-4.8 [facility] Comment on above: Order Comment: Speci men Type: BLOOD SPECIMENOrdering Facility: [facility] Address: [address] [place] [address] Performed By: #### 2 777, ####[facility] LABORATORYCLIA [id number] [place] [address] [place] aPTT PPPon 07-17-2021 aPTT Coag (PPP) [Time] 57.2 s High 23.0-32.4 [facility] Comment on above: Order Comment: Speci men Type: BLOOD SPECIMENOrdering Facility: [facility] Address: [address] [place] [address] Performed By: #### 1 4979-9 ####[facility] LABORATORYCLIA [id number] [place] [id number] [place] Basic metabolic 2000 panelon 07-16-2021 Anion gap [Moles/Vol] 5 mmol/L Low 9-18 [facility] Comment on above: Order Comment: Speci men Type: BLOOD SPECIMENOrdering Facility: [facility] Address: [address] [place] [address] Performed By: #### 2 777-1, 72485-9, ####[facility]PITALCLIA [id number] [place] [address] [place] [facility] Calcium [Mass/Vol] 9.1 mg/dL Normal 8.5-10.2 [facility] Comment on above: Order Comment: Speci men Type: BLOOD SPECIMENOrdering Facility: [facility] Address: [address] [place] [address] Performed By: #### 2 777-1, , ####[facility] LABORATORYCLIA [id number] [address] [place] Chloride [Moles/Vol] 101 mmol/L Normal 97-105 [facility] Comment on above: Order Comment: Speci men Type: BLOOD SPECIMENOrdering Facility: [facility] Address: [address] [place] [address] Performed By: #### 2 777-1, 81489-3, ####[facility] LABORATORYCLIA [id number] [place] [address] [place] CO2 [Moles/Vol] 35 mmol/L High 22-30 [facility] Comment on above: Order Comment: Speci men Type: BLOOD SPECIMENOrdering Facility: [facility] Address: [address] [place] [address] Performed By: #### 2 777-1, 89251-2, ####[facility] LABORATORYCLIA [id number] [address] [place] Creatinine [Mass/Vol] 0.73 mg/dL Normal 0.73-1.22 [facility] Comment on above: Order Comment: Speci men Type: BLOOD SPECIMENOrdering Facility: [facility] Address: [address] [place] [address] Performed By: #### 2 777-1, 81416-7, ####[facility] LABORATORYCLIA [id number] [address] ESTIMATED GLOMERULAR FILTRATION RATE 98 mL/min/1.73m??? Normal >=60 [facility] Comment on above: Order Comment: Speci men Type: BLOOD SPECIMENOrdering Facility: [facility] Address: [address] [place] [address] Result Comment: Luzmaria mated Glomerular Filtration Rate [...] actual GFR. Performed By: #### 2 777-1, 83396-4, ####[facility] LABORATORYCLIA [id number] [address] [place] Glucose [Mass/Vol] 133 mg/dL High 74-99 [facility] Comment on above: Order Comment: Speci men Type: BLOOD SPECIMENOrdering Facility: [facility] Address: [address] [place] [address] Result Comment: The [place] [employer] (ADA) provides guidance for cutoff [...] Standards of Medical Care in Diabetes 2016, [place] [employer]. Diabetes Care. 2016.39(Suppl 1). Performed By: #### 2 777-1, 82572-0, ####[facility] LABORATORYCLIA [id number] [place] [address] [place] Potassium [Moles/Vol] 4.2 mmol/L Normal 3.7-5.1 [facility] Comment on above: Order Comment: Speci men Type: BLOOD SPECIMENOrdering Facility: [facility] Address: [address] [place] [address] Performed By: #### 2 777-1, , ####[facility] LABORATORYCLIA [id number] [place] [address] [place] Sodium [Moles/Vol] 141 mmol/L Normal 136-144 [facility] Comment on above: Order Comment: Johni men Type: BLOOD SPECIMENOrdering Facility: [facility] Address: [address] [place] [address] Performed By: #### 2 777-1, , ####[facility] LABORATORYCLIA [id number] [place] [address] [place] Urea nitrogen [Mass/Vol] 21 mg/dL Normal 9-24 [facility] Comment on above: Order Comment: Shira men Type: BLOOD SPECIMENOrdering Facility: [facility] Address: [address] [place] [address] Performed By: #### 2 777-1, 39263-3, 57426-2 ####[facility] LABORATORYCLIA [id number] [address] [place] [facility] CBC W Auto Differential pane l (Bld)on 07-16-2021 Basophils (Bld) [#/Vol] 0.06 10*3/uL Normal <0.11 [facility] Comment on above: Order Comment: Speci men Type: BLOOD SPECIMENOrdering Facility: [facility] Address: [address] [place] [address] Performed By: #### 5 7021-8 ####[facility]ORATORYCLIA [id number] [address] Basophils/100 WBC (Bld) 0.7 % Normal [facility] Comment on above: Order Comment: Speci men Type: BLOOD SPECIMENOrdering Facility: [facility] Address: [address] [place] [address] Performed By: #### 5 7021-8 ####[facility] LABORATORYCLIA [id number] [address] Differential cell count method Nom (Bld) Auto Normal [facility] Comment on above: Order Comment: Speci men Type: BLOOD SPECIMENOrdering Facility: [facility] Address: [address] [place] [address] Performed By: #### 5 7021-8 ####[facility] LABORATORYCLIA [id number] [place] [address] [place] Eosinophils (Bld) [#/Vol] 0.35 10*3/uL Normal <0.46 [facility] Comment on above: Order Comment: Speci men Type: BLOOD SPECIMENOrdering Facility: [facility] Address: [address] [place], [place] [address] Performed By: #### 5 7021-8 ####[facility]ORATORYCLIA [id number] [address] Eosinophils/100 WBC (Bld) 3.9 % Normal [facility] Comment on above: Order Comment: Speci men Type: BLOOD SPECIMENOrdering Facility: [facility] Address: [address] [place] [address] Performed By: #### 5 7021-8 ####[facility] LABORATORYCLIA [id number] [address] Erythrocyte distribution width (RBC) [Ratio] 16.5 % High 11.5-15.0 [facility] Comment on above: Order Comment: Speci men Type: BLOOD SPECIMENOrdering Facility: [facility] Address: [address] [place] [address] Performed By: #### 5 7021-8 ####[facility] LABORATORYCLIA [id number] [address] Hematocrit (Bld) [Volume fraction] 30.9 % Low 39.0-51.0 [facility] Comment on above: Order Comment: Speci men Type: BLOOD SPECIMENOrdering Facility: [facility] Address: [address] [place] [address] Performed By: #### 5 7021-8 ####[facility] LABORATORYCLIA [id number] [address] Hemoglobin (Bld) [Mass/Vol] 9.1 g/dL Low 13.0-17.0 [facility] Comment on above: Order Comment: Speci men Type: BLOOD SPECIMENOrdering Facility: [facility] Address: [address] [place] [address] Performed By: #### 5 7021-8 ####[facility] LABORATORYCLIA [id number] [address] IMMATURE GRAN % 0.4 % Normal [facility] Comment on above: Order Comment: Speci men Type: BLOOD SPECIMENOrdering Facility: [facility] Address: [address] [place] [address] Performed By: #### 5 7021-8 ####[facility] LABORATORYCLIA [id number] [address] IMMATURE GRAN ABS 0.04 k/uL Normal <0.10 [facility] Comment on above: Order Comment: Speci men Type: BLOOD SPECIMENOrdering Facility: [facility] Address: [address] [place] [address] Performed By: #### 5 7021-8 ####[facility] LABORATORYCLIA [id number] [address] Lymphocytes (Bld) [#/Vol] 1.35 10*3/uL Normal 1.00-4.00 [facility] Comment on above: Order Comment: Speci men Type: BLOOD SPECIMENOrdering Facility: [facility] Address: [address] [place] [address] Performed By: #### 5 7021-8 ####[facility] LABORATORYCLIA [id number] [address] Lymphocytes/100 WBC (Bld) 15.0 % Normal [facility] Comment on above: Order Comment: Speci men Type: BLOOD SPECIMENOrdering Facility: [facility] Address: [address] [place] [address] Performed By: #### 5 7021-8 ####[facility] LABORATORYCLIA [id number] [address] MCH (RBC) [Entitic mass] 27.1 pg Normal 26.0-34.0 [facility] Comment on above: Order Comment: Speci men Type: BLOOD SPECIMENOrdering Facility: [facility] Address: [address] [place] [address] Performed By: #### 5 7021-8 ####[facility] LABORATORYCLIA [id number] [address] MCHC (RBC) [Mass/Vol] 29.4 g/dL Low 30.5-36.0 [facility] Comment on above: Order Comment: Speci men Type: BLOOD SPECIMENOrdering Facility: [facility] Address: [address] [place] [address] Performed By: #### 5 7021-8 ####[facility]ATORYCLIA [id number] [address] [place] MCV (RBC) [Entitic vol] 92.0 fL Normal 80.0-100.0 [facility] Comment on above: Order Comment: Speci men Type: BLOOD SPECIMENOrdering Facility: [facility] Address: [address] [place] [address] Performed By: #### 5 7021-8 ####[facility]ATORYCLIA [id number] [address] [place] Monocytes (Bld) [#/Vol] 0.53 10*3/uL Normal <0.87 [facility] Comment on above: Order Comment: Speci men Type: BLOOD SPECIMENOrdering Facility: [facility] Address: [address] [place] [address] Performed By: #### 5 7021-8 ####[facility] LABORATORYCLIA [id number] [address] Monocytes/100 WBC (Bld) 5.9 % Normal [facility] Comment on above: Order Comment: Speci men Type: BLOOD SPECIMENOrdering Facility: [facility] Address: [address] [place] [address] Performed By: #### 5 7021-8 ####[facility] LABORATORYCLIA [id number] [address] [place] Neutrophils (Bld) [#/Vol] 6.67 10*3/uL Normal 1.45-7.50 [facility] Comment on above: Order Comment: Speci men Type: BLOOD SPECIMENOrdering Facility: [facility] Address: [address] [place] [address] Performed By: #### 5 7021-8 ####[facility] LABORATORYCLIA [id number] [address] [place] Neutrophils/100 WBC (Bld) 74.1 % Normal [facility] Comment on above: Order Comment: Speci men Type: BLOOD SPECIMENOrdering Facility: [facility] Address: [address] Performed By: #### 5 7021-8 ####[facility] LABORATORYCLIA [id number] [address] Nucleated RBC (Bld) [#/Vol] 10*3/uL Normal <0.01 [facility] Comment on above: Order Comment: Speci men Type: BLOOD SPECIMENOrdering Facility: [facility] Address: [address] [place] [address] Performed By: #### 5 7021-8 ####[facility] LABORATORYCLIA [id number] [address] Nucleated RBC/100 WBC (Bld) [Ratio] 0.0 /100 WBC Normal [facility] Comment on above: Order Comment: Speci men Type: BLOOD SPECIMENOrdering Facility: [facility] Address: [address] [place] [address] Performed By: #### 5 7021-8 ####[facility] LABORATORYCLIA [id number] [address] STATES [facility] Platelet mean volume (Bld) [Entitic vol] 9.9 fL Normal 9.0-12.7 [facility] Comment on above: Order Comment: Speci men Type: BLOOD SPECIMENOrdering Facility: [facility] Address: [address] Performed By: #### 5 7021-8 ####[facility] LABORATORYCLIA [id number] [address] Platelets (Bld) [#/Vol] 391 10*3/uL Normal 150-400 [facility] Comment on above: Order Comment: Speci men Type: BLOOD SPECIMENOrdering Facility: [facility] Address: [address] [place] [address] Performed By: #### 5 7021-8 ####[facility] LABORATORYCLIA [id number] [address] [place] RBC (Bld) [#/Vol] 3.36 10*6/uL Low 4.20-6.00 [facility] Comment on above: Order Comment: Speci men Type: BLOOD SPECIMENOrdering Facility: [facility] Address: [address] [place] [address] Performed By: #### 5 7021-8 ####[facility] LABORATORYCLIA [id number] [address] [place] WBC (Bld) [#/Vol] 9.00 10*3/uL Normal 3.70-11.00 [facility] Comment on above: Order Comment: Speci men Type: BLOOD SPECIMENOrdering Facility: [facility] Address: [address] [place] [address] Performed By: #### 5 7021-8 ####[facility] LABORATORYCLIA [id number] [address] CONSULT PROGon 07-16-2021 CONSULT PROG Normal [facility] CONSULT PROG Normal [facility] Magnesium SerPl-mCncon 07-16 Magnesium [Mass/Vol] 2.3 mg/dL Normal 1.7-2.3 [facility] Comment on above: Order Comment: Speci men Type: BLOOD SPECIMENOrdering Facility: [facility] Address: [address] [place] [address] Performed By: #### 2 777-1, 09775-6, 34309-4 ####[facility] LABORATORYCLIA [id number] [address] [place] NURSING PROGon 07-16-2021 NURSING PROG Normal [facility] Phosphate SerPl-mCncon 07-16 Phosphate [Mass/Vol] 3.6 mg/dL Normal 2.7-4.8 [facility] Comment on above: Order Comment: Speci men Type: BLOOD SPECIMENOrdering Facility: [facility] Address: [address] [place] [address] Performed By: #### 2 777-1, 46567-6, 64534-7 ####[facility] LABORATORYCLIA [id number] [address] STATES [facility] Vancomycin random [Mass/Vol] on 07-16-2021 Vancomycin [Mass/Vol] 16.9 ug/mL Normal 10.0-20.0 [facility] Comment on above: Order Comment: Speci men Type: BLOOD SPECIMENOrdering Facility: [facility] Address: [address] [place] [address] Result Comment: Refe rence ranges and high/low indicator flags are provided as general guidelines only. The treating physician must determine appropriate target levels/dosing based on the specific clinical situation. Performed By: #### 4 091-5 ####[facility]PITALCLIA [id number] [address] [place] aPTT PPPon 07-16-2021 aPTT Coag (PPP) [Time] 57.2 s High 23.0-32.4 [facility] Comment on above: Order Comment: Speci men Type: BLOOD SPECIMENOrdering Facility: [facility] Address: [address] [place] [address] Performed By: #### 1 4979-9 ####[facility]PITALCLIA [id number] [address] [place] ALLIED HEALTHon 07-15-2021 ALLIED HEALTH Normal [facility] Basic metabolic 2000 panelon 07-15-2021 Anion gap [Moles/Vol] 11 mmol/L Normal 9-18 [facility] Comment on above: Order Comment: Speci men Type: BLOOD SPECIMENOrdering Facility: [facility] Address: [address] [place] [address] Performed By: #### 2 4321-2, 84157-0, 2777-1 ####[facility] LABORATORYCLIA [id number] [address] STATES [place] [facility] Calcium [Mass/Vol] 8.8 mg/dL Normal 8.5-10.2 [facility] Comment on above: Order Comment: Speci men Type: BLOOD SPECIMENOrdering Facility: [facility] Address: [address] [place] [address] [place], [place] [address] Performed By: #### 2 4321-2, , 2776-05 ####[facility] LABORATORYCLIA [id number] [place] [address] [place] Chloride [Moles/Vol] 101 mmol/L Normal 97-105 [facility] Comment on above: Order Comment: Speci men Type: BLOOD SPECIMENOrdering Facility: [facility] Address: [address] [place] [address] Performed By: #### 2 4321-2, , 2776-05 ####[facility] LABORATORYCLIA [id number] [address] [place] CO2 [Moles/Vol] 31 mmol/L High 22-30 [facility] Comment on above: Order Comment: Speci men Type: BLOOD SPECIMENOrdering Facility: [facility] Address: [address] [place] [address] Performed By: #### 2 4321-2, , 2776-05 ####[facility] LABORATORYCLIA [id number] [address] [place] Creatinine [Mass/Vol] 0.76 mg/dL Normal 0.73-1.22 [facility] Comment on above: Order Comment: Speci men Type: BLOOD SPECIMENOrdering Facility: [facility] Address: [address] [place] [address] Performed By: #### 2 4321-2, , 2776-05 ####[facility] LABORATORYCLIA [id number] [address] OF [facility] ESTIMATED GLOMERULAR FILTRATION RATE 97 mL/min/1.73m??? Normal >=60 [facility] Comment on above: Order Comment: Speci men Type: BLOOD SPECIMENOrdering Facility: [facility] Address: [address] [place] [address] Result Comment: Luzmaria mated Glomerular Filtration Rate [...] Performed By: #### 2 4321-2, , 2776-05 ####[facility] LABORATORYCLIA [id number] [place] [address] [place] Glucose [Mass/Vol] 115 mg/dL High 74-99 [facility] Comment on above: Order Comment: Shira feldman Type: BLOOD SPECIMENOrdering Facility: [facility] Address: [address] [place], [place] [address] Result Comment: The [place] [employer] (ADA) provides guidance for cutoff [...] Standards of Medical Care in Diabetes 2016, [place] [employer]. Diabetes Care. 2016.39(Suppl 1). Performed By: #### 2 4321-2, , 2776-05 ####[facility] LABORATORYCLIA [id number] [place] [address] [place] Potassium [Moles/Vol] 4.0 mmol/L Normal 3.7-5.1 [facility] Comment on above: Order Comment: Shira feldman Type: BLOOD SPECIMENOrdering Facility: [facility] Address: [address] [place] [address] Performed By: #### 2 4321-2, , 2776-05 ####[facility] LABORATORYCLIA [id number] [place] [address] [place] Sodium [Moles/Vol] 143 mmol/L Normal 136-144 [facility] Comment on above: Order Comment: Speci men Type: BLOOD SPECIMENOrdering Facility: [facility] Address: [address] [place] [address] Performed By: #### 2 4321-2, 94504-6, 2777-1 ####[facility] LABORATORYCLIA [id number] [address] [place] Urea nitrogen [Mass/Vol] 17 mg/dL Normal 9-24 [facility] Comment on above: Order Comment: Speci men Type: BLOOD SPECIMENOrdering Facility: [facility] Address: [address] [place] [address] Performed By: #### 2 4321-2, , 2776-05 ####[facility] LABORATORYCLIA [id number] [address] CASE MANAGEMon 07-15-2021 CASE MANAGEM Normal [facility] CBC panel Auto (Bld)on 07-15 Erythrocyte distribution width (RBC) [Ratio] 16.4 % High 11.5-15.0 [facility] Comment on above: Order Comment: Speci men Type: BLOOD SPECIMENOrdering Facility: [facility] Address: [address] [place] [address] Performed By: #### 5 8410-2 ####[facility] LABORATORYCLIA [id number] [address] [place] Hematocrit (Bld) [Volume fraction] 30.3 % Low 39.0-51.0 [facility] Comment on above: Order Comment: Speci men Type: BLOOD SPECIMENOrdering Facility: [facility] Address: [address] [place] [address] Performed By: #### 5 8410-2 ####[facility] LABORATORYCLIA [id number] [address] [place] Hemoglobin (Bld) [Mass/Vol] 9.2 g/dL Low 13.0-17.0 [facility] Comment on above: Order Comment: Speci men Type: BLOOD SPECIMENOrdering Facility: [facility] Address: [address] [place] [address] Performed By: #### 5 8410-2 ####[facility] LABORATORYCLIA [id number] [address] MCH (RBC) [Entitic mass] 28.3 pg Normal 26.0-34.0 [facility] Comment on above: Order Comment: Speci men Type: BLOOD SPECIMENOrdering Facility: [facility] Address: [address] [place] [address] Performed By: #### 5 8410-2 ####[facility] LABORATORYCLIA [id number] [address] MCHC (RBC) [Mass/Vol] 30.4 g/dL Low 30.5-36.0 [facility] Comment on above: Order Comment: Speci men Type: BLOOD SPECIMENOrdering Facility: [facility] Address: [address] [place] [address] Performed By: #### 5 8410-2 ####[facility] LABORATORYCLIA [id number] [address] MCV (RBC) [Entitic vol] 93.2 fL Normal 80.0-100.0 [facility] Comment on above: Order Comment: Speci men Type: BLOOD SPECIMENOrdering Facility: [facility] Address: [address] [place] [address] Performed By: #### 5 8410-2 ####[facility] LABORATORYCLIA [id number] [address] Nucleated RBC (Bld) [#/Vol] 10*3/uL Normal <0.01 [facility] Comment on above: Order Comment: Speci men Type: BLOOD SPECIMENOrdering Facility: [facility] Address: [address] [place] [address] Performed By: #### 5 8410-2 ####[facility] LABORATORYCLIA [id number] [address] [place] Platelet mean volume (Bld) [Entitic vol] 9.9 fL Normal 9.0-12.7 [facility] Comment on above: Order Comment: Speci men Type: BLOOD SPECIMENOrdering Facility: [facility] Address: [address] [place] [address] Performed By: #### 5 8410-2 ####[facility] LABORATORYCLIA [id number] [address] [place] Platelets (Bld) [#/Vol] 381 10*3/uL Normal 150-400 [facility] Comment on above: Order Comment: Speci men Type: BLOOD SPECIMENOrdering Facility: [facility] Address: [address] [place] [address] Performed By: #### 5 8410-2 ####[facility] LABORATORYCLIA [id number] [place] [address] [place] RBC (Bld) [#/Vol] 3.25 10*6/uL Low 4.20-6.00 [facility] Comment on above: Order Comment: Speci men Type: BLOOD SPECIMENOrdering Facility: [facility] Address: [address] [place] [address] Performed By: #### 5 8410-2 ####[facility] LABORATORYCLIA [id number] [address] [place] WBC (Bld) [#/Vol] 8.80 10*3/uL Normal 3.70-11.00 [facility] Comment on above: Order Comment: Speci men Type: BLOOD SPECIMENOrdering Facility: [facility] Address: [address] [place] [address] Performed By: #### 5 8410-2 ####[facility] LABORATORYCLIA [id number] [address] [place] Magnesium SerPl-mCncon 07-15 Magnesium [Mass/Vol] 2.2 mg/dL Normal 1.7-2.3 [facility] Comment on above: Order Comment: Speci men Type: BLOOD SPECIMENOrdering Facility: [facility] Address: [facility] [place] [address] Performed By: #### 2 4321-2, 96443-6, 2776-05 ####[facility] LABORATORYCLIA [id number] [place] [address] [place] NURSING PROGon 07-15-2021 NURSING PROG Normal [facility] NURSING PROG Normal [facility] NURSING PROG Normal [facility] NUTRITIONon 07-15-2021 NUTRITION Normal [facility] Phosphate SerPl-mCncon 07-15 Phosphate [Mass/Vol] 3.4 mg/dL Normal 2.7-4.8 [facility] Comment on above: Order Comment: Speci men Type: BLOOD SPECIMENOrdering Facility: [facility] Address: [facility] [place] [address] Performed By: #### 2 4321-2, , 2776-05 ####[facility] LABORATORYCLIA [id number] [place] [address] [place] THERAPY NTon 07-15-2021 THERAPY NT Normal [facility] US DVT UPPER LTon 07-15-2021 US DVT UPPER LT Normal [facility] XR CHEST 1V FRONTALon 2021 XR CHEST 1V FRONTAL Normal [facility] aPTT PPPon 07-15-2021 aPTT Coag (PPP) [Time] 59.9 s High 23.0-32.4 [facility] Comment on above: Order Comment: Speci men Type: BLOOD SPECIMENOrdering Facility: [facility] Address: [facility] [place] [address] Performed By: #### 1 4979-9 ####[facility] LABORATORYCLIA [id number] [place] [address] [place] Basic metabolic 2000 panelon 07-14-2021 Anion gap [Moles/Vol] 9 mmol/L Normal 9-18 [facility] Comment on above: Order Comment: Speci men Type: BLOOD SPECIMENOrdering Facility: [facility] Address: [address] [place] [address] Performed By: #### 1 9123-9, 27711-04, 09912-3 ####[facility] LABORATORYCLIA [id number] [place] [address] [place] Calcium [Mass/Vol] 8.5 mg/dL Normal 8.5-10.2 [facility] Comment on above: Order Comment: Speci men Type: BLOOD SPECIMENOrdering Facility: [facility] Address: [address] [place] [address] Performed By: #### 1 9123-9, 2776-05, 33006-5 ####[facility] LABORATORYCLIA [id number] [place] [address] [place] Chloride [Moles/Vol] 99 mmol/L Normal 97-105 [facility] Comment on above: Order Comment: Speci men Type: BLOOD SPECIMENOrdering Facility: [facility] Address: [address] [place] [address] Performed By: #### 1 9123-9, 2776-05, ####[facility] LABORATORYCLIA [id number] [place] [address] [place] CO2 [Moles/Vol] 31 mmol/L High 22-30 [facility] Comment on above: Order Comment: Speci men Type: BLOOD SPECIMENOrdering Facility: [facility] Address: [address] [place] [address] Performed By: #### 1 9123-9, 2776-05, 31496-0 ####[facility] LABORATORYCLIA [id number] [place] [address] [place] Creatinine [Mass/Vol] 0.74 mg/dL Normal 0.73-1.22 [facility] Comment on above: Order Comment: Speci men Type: BLOOD SPECIMENOrdering Facility: [facility] Address: [address] [place] [address] Performed By: #### 1 9123-9, 2777-, 55375-8 ####[facility]PITALCLIA [id number] [address] ESTIMATED GLOMERULAR FILTRATION RATE 98 mL/min/1.73m??? Normal >=60 [facility] Comment on above: Order Comment: Shira francia Type: BLOOD SPECIMENOrdering Facility: [facility] Address: [address] [place] [address] Result Comment: Luzmaria mated Glomerular Filtration Rate [...] GFR. Performed By: #### 1 9123-9, 2777-, 04894-5 ####[facility] [id number] [address] [facility] Glucose [Mass/Vol] 117 mg/dL High 74-99 [facility] Comment on above: Order Comment: Shira feldman Type: BLOOD SPECIMENOrdering Facility: [facility] Address: [address] [place] [address] Result Comment: The [place] [employer] (ADA) provides guidance for cutoff [...] Standards of Medical Care in Diabetes 2016, [place] [employer]. Diabetes Care. 2016.39(Suppl 1). Performed By: #### 1 9123-9, 2777-, 59603-3 ####[facility] LABORATORYCLIA [id number] [address] STATES [place] [facility] Potassium [Moles/Vol] 3.7 mmol/L Normal 3.7-5.1 [facility] Comment on above: Order Comment: Speci men Type: BLOOD SPECIMENOrdering Facility: [facility] Address: [address] [place] [address] Performed By: #### 1 9123-9, 2777-1, 10987-5 ####[facility] LABORATORYCLIA [id number] [address] [place] [facility] Sodium [Moles/Vol] 139 mmol/L Normal 136-144 [facility] Comment on above: Order Comment: Speci men Type: BLOOD SPECIMENOrdering Facility: [facility] Address: [address] [place] [address] Performed By: #### 1 9123-9, 2777-1, 15663-8 ####[facility] LABORATORYCLIA [id number] [address] [place] [facility] Urea nitrogen [Mass/Vol] 16 mg/dL Normal 9-24 [facility] Comment on above: Order Comment: Speci men Type: BLOOD SPECIMENOrdering Facility: [facility] Address: [address] [place] [address] Performed By: #### 1 9123-9, 2777-1, 78203-4 ####[facility] LABORATORYCLIA [id number] [address] [place] [facility] CBC panel Auto (Bld)on 07-14 Erythrocyte distribution width (RBC) [Ratio] 16.2 % High 11.5-15.0 [facility] Comment on above: Order Comment: Speci men Type: BLOOD SPECIMENOrdering Facility: [facility] Address: [address] [place] [address] Performed By: #### 5 8410-2 ####[facility] LABORATORYCLIA [id number] [address] [place] [facility] Hematocrit (Bld) [Volume fraction] 29.7 % Low 39.0-51.0 [facility] Comment on above: Order Comment: Speci men Type: BLOOD SPECIMENOrdering Facility: [facility] Address: [address] [place] [address] Performed By: #### 5 8410-2 ####[facility] LABORATORYCLIA [id number] [address] [place] [facility] Hemoglobin (Bld) [Mass/Vol] 8.8 g/dL Low 13.0-17.0 [facility] Comment on above: Order Comment: Speci men Type: BLOOD SPECIMENOrdering Facility: [facility] Address: [address] [place] [address] Performed By: #### 5 8410-2 ####[facility] LABORATORYCLIA [id number] [address] [place] MCH (RBC) [Entitic mass] 27.5 pg Normal 26.0-34.0 [facility] Comment on above: Order Comment: Speci men Type: BLOOD SPECIMENOrdering Facility: [facility] Address: [address] [place] [address] Performed By: #### 5 8410-2 ####[facility] LABORATORYCLIA [id number] [address] [place] MCHC (RBC) [Mass/Vol] 29.6 g/dL Low 30.5-36.0 [facility] Comment on above: Order Comment: Speci men Type: BLOOD SPECIMENOrdering Facility: [facility] Address: [address] [place] [address] Performed By: #### 5 8410-2 ####[facility] LABORATORYCLIA [id number] [address] [place] MCV (RBC) [Entitic vol] 92.8 fL Normal 80.0-100.0 [facility] Comment on above: Order Comment: Speci men Type: BLOOD SPECIMENOrdering Facility: [facility] Address: [address] [place] [address] Performed By: #### 5 8410-2 ####[facility] LABORATORYCLIA [id number] [address] [place] Nucleated RBC (Bld) [#/Vol] 10*3/uL Normal <0.01 [facility] Comment on above: Order Comment: Speci men Type: BLOOD SPECIMENOrdering Facility: [facility] Address: [address] [place] [address] Performed By: #### 5 8410-2 ####[facility] LABORATORYCLIA [id number] [address] [place] Platelet mean volume (Bld) [Entitic vol] 9.6 fL Normal 9.0-12.7 [facility] Comment on above: Order Comment: Speci men Type: BLOOD SPECIMENOrdering Facility: [facility] Address: [address] [place] [address] Performed By: #### 5 8410-2 ####[facility] LABORATORYCLIA [id number] [address] [place] Platelets (Bld) [#/Vol] 354 10*3/uL Normal 150-400 [facility] Comment on above: Order Comment: Speci men Type: BLOOD SPECIMENOrdering Facility: [facility] Address: [address] [place] [address] Performed By: #### 5 8410-2 ####[facility] LABORATORYCLIA [id number] [address] [place] RBC (Bld) [#/Vol] 3.20 10*6/uL Low 4.20-6.00 [facility] Comment on above: Order Comment: Speci men Type: BLOOD SPECIMENOrdering Facility: [facility] Address: [address] [place] [address] Performed By: #### 5 8410-2 ####[facility] LABORATORYCLIA [id number] [place] [address] [place] WBC (Bld) [#/Vol] 9.41 10*3/uL Normal 3.70-11.00 [facility] Comment on above: Order Comment: Speci men Type: BLOOD SPECIMENOrdering Facility: [facility] Address: [address] [place] [address] Performed By: #### 5 8410-2 ####[facility] LABORATORYCLIA [id number] [address] CONSULT PROGon 07-14-2021 CONSULT PROG Normal [facility] Magnesium SerPl-mCncon 07-14 Magnesium [Mass/Vol] 2.2 mg/dL Normal 1.7-2.3 [facility] Comment on above: Order Comment: Speci men Type: BLOOD SPECIMENOrdering Facility: [facility] Address: [address] [place] [address] Performed By: #### 1 9123-9, 2777-1, 27812-3 ####[facility] LABORATORYCLIA [id number] [address] NURSING PROGon 07-14-2021 NURSING PROG Normal [facility] Phosphate SerPl-mCncon 07-14 Phosphate [Mass/Vol] 3.6 mg/dL Normal 2.7-4.8 [facility] Comment on above: Order Comment: Speci men Type: BLOOD SPECIMENOrdering Facility: [facility] Address: [address] [place] [address] Performed By: #### 1 9123-9, 2777-1, 28849-2 ####[facility] LABORATORYCLIA [id number] [address] aPTT PPPon 07-14-2021 aPTT Coag (PPP) [Time] 62.9 s High 23.0-32.4 [facility] Comment on above: Order Comment: Speci men Type: BLOOD SPECIMENOrdering Facility: [facility] Address: [address] [place] [address] Performed By: #### 1 4979-9 ####[facility] LABORATORYCLIA [id number] [address] aPTT Coag (PPP) [Time] 55.2 s High 23.0-32.4 [facility] Comment on above: Order Comment: Speci men Type: BLOOD SPECIMENOrdering Facility: [facility] Address: [address] [place] [address] Performed By: #### 1 4979-9 ####[facility] LABORATORYCLIA [id number] [place] [address] [place] Basic metabolic 2000 panelon 07-13-2021 Anion gap [Moles/Vol] 10 mmol/L Normal 9-18 [facility] Comment on above: Order Comment: Speci men Type: BLOOD SPECIMENOrdering Facility: [facility] Address: [address] [place] [address] Performed By: #### 1 9123-9, 2777-1, 86511-3 ####[facility] LABORATORYCLIA [id number] [place] [address] [place] Calcium [Mass/Vol] 8.5 mg/dL Normal 8.5-10.2 [facility] Comment on above: Order Comment: Speci men Type: BLOOD SPECIMENOrdering Facility: [facility] Address: [address] [place] [address] Performed By: #### 1 9123-9, 2777-1, 04399-9 ####[facility] LABORATORYCLIA [id number] [place] [address] [place] Chloride [Moles/Vol] 98 mmol/L Normal 97-105 [facility] Comment on above: Order Comment: Speci men Type: BLOOD SPECIMENOrdering Facility: [facility] Address: [address] [place] [address] Performed By: #### 1 9123-9, 2777-1, 35242-7 ####[facility] LABORATORYCLIA [id number] [place] [address] [place] CO2 [Moles/Vol] 32 mmol/L High 22-30 [facility] Comment on above: Order Comment: Speci men Type: BLOOD SPECIMENOrdering Facility: [facility] Address: [address] [address] Performed By: #### 1 9123-9, 2777-1, 24032-0 ####[facility] [id number] [place] [id number] [place] Creatinine [Mass/Vol] 0.75 mg/dL Normal 0.73-1.22 [facility] Comment on above: Order Comment: Speci men Type: BLOOD SPECIMENOrdering Facility: [facility] Address: [address] [address] Performed By: #### 1 9123-9, 2777-, 93913-6 ####[facility] [id number] [address] [place] [facility] ESTIMATED GLOMERULAR FILTRATION RATE 98 mL/min/1.73m??? Normal >=60 [facility] Comment on above: Order Comment: Speci men Type: BLOOD SPECIMENOrdering Facility: [facility] Address: [address] [place] [address] Result Comment: Luzmaria mated Glomerular Filtration Rate [...] GFR. Performed By: #### 1 9123-9, 2777-, 67908-1 ####[facility] [id number] [place] [address] [place] Glucose [Mass/Vol] 118 mg/dL High 74-99 [facility] Comment on above: Order Comment: Shira men Type: BLOOD SPECIMENOrdering Facility: [facility] Address: [address] [address] Result Comment: The [place] [employer] (ADA) provides guidance for cutoff [...] Standards of Medical Care in Diabetes 2016, [place] [employer]. Diabetes Care. 2016.39(Suppl 1). Performed By: #### 1 9123-9, 2777-1, 21823-9 ####[facility] LABORATORYCLIA [id number] [place] [address] [place] Potassium [Moles/Vol] 3.6 mmol/L Low 3.7-5.1 [facility] Comment on above: Order Comment: Shira feldman Type: BLOOD SPECIMENOrdering Facility: [facility] Address: [address] [place] [address] Performed By: #### 1 9123-9, 2777-, 23544-4 ####[facility]ITALCLIA [id number] [address] [place] [facility] Sodium [Moles/Vol] 140 mmol/L Normal 136-144 [facility] Comment on above: Order Comment: Shira feldman Type: BLOOD SPECIMENOrdering Facility: [facility] Address: [address] [place] [address] Performed By: #### 1 9123-9, 2777, 63150-1 ####[facility] LABORATORYCLIA [id number] [place] [address] [place] Urea nitrogen [Mass/Vol] 15 mg/dL Normal 9-24 [facility] Comment on above: Order Comment: Shira feldman Type: BLOOD SPECIMENOrdering Facility: [facility] Address: [address] [place] [address] Performed By: #### 1 9123-9, 2777-1, 25456-7 ####[facility] LABORATORYCLIA [id number] [address] [place] CASE MANAGEMon 03-09-2022 CASE MANAGEM Normal [facility] CBC panel Auto (Bld)on 07-13 Erythrocyte distribution width (RBC) [Ratio] 16.2 % High 11.5-15.0 [facility] Comment on above: Order Comment: Speci men Type: BLOOD SPECIMENOrdering Facility: [facility] Address: [address] [place] [address] Performed By: #### 5 8410-2 ####[facility] LABORATORYCLIA [id number] [address] Hematocrit (Bld) [Volume fraction] 29.5 % Low 39.0-51.0 [facility] Comment on above: Order Comment: Speci men Type: BLOOD SPECIMENOrdering Facility: [facility] Address: [address] [place] [address] Performed By: #### 5 8410-2 ####[facility] LABORATORYCLIA [id number] [address] Hemoglobin (Bld) [Mass/Vol] 8.9 g/dL Low 13.0-17.0 [facility] Comment on above: Order Comment: Speci men Type: BLOOD SPECIMENOrdering Facility: [facility] Address: [address] [place] [address] Performed By: #### 5 8410-2 ####[facility] LABORATORYCLIA [id number] [address] MCH (RBC) [Entitic mass] 27.8 pg Normal 26.0-34.0 [facility] Comment on above: Order Comment: Speci men Type: BLOOD SPECIMENOrdering Facility: [facility] Address: [address] [place] [address] Performed By: #### 5 8410-2 ####[facility] LABORATORYCLIA [id number] [address] [place] MCHC (RBC) [Mass/Vol] 30.2 g/dL Low 30.5-36.0 [facility] Comment on above: Order Comment: Speci men Type: BLOOD SPECIMENOrdering Facility: [facility] Address: [address] [address] Performed By: #### 5 8410-2 ####[facility] LABORATORYCLIA [id number] [address] OF [facility] MCV (RBC) [Entitic vol] 92.2 fL Normal 80.0-100.0 [facility] Comment on above: Order Comment: Speci men Type: BLOOD SPECIMENOrdering Facility: [facility] Address: [address] [place] [address] Performed By: #### 5 8410-2 ####[facility] LABORATORYCLIA [id number] [address] [place] Nucleated RBC (Bld) [#/Vol] 10*3/uL Normal <0.01 [facility] Comment on above: Order Comment: Speci men Type: BLOOD SPECIMENOrdering Facility: [facility] Address: [address] [address] Performed By: #### 5 8410-2 ####[facility] LABORATORYCLIA [id number] [address] [place] Platelet mean volume (Bld) [Entitic vol] 9.8 fL Normal 9.0-12.7 [facility] Comment on above: Order Comment: Speci men Type: BLOOD SPECIMENOrdering Facility: [facility] Address: [address] Performed By: #### 5 8410-2 ####[facility] LABORATORYCLIA [id number] [address] [place] Platelets (Bld) [#/Vol] 356 10*3/uL Normal 150-400 [facility] Comment on above: Order Comment: Speci men Type: BLOOD SPECIMENOrdering Facility: [facility] Address: [address] [place] [address] Performed By: #### 5 8410-2 ####[facility] LABORATORYCLIA [id number] [place] [address] [place] RBC (Bld) [#/Vol] 3.20 10*6/uL Low 4.20-6.00 [facility] Comment on above: Order Comment: Speci men Type: BLOOD SPECIMENOrdering Facility: [facility] Address: [address] [place] [address] Performed By: #### 5 8410-2 ####[facility] LABORATORYCLIA [id number] [place] [address] [place] WBC (Bld) [#/Vol] 9.20 10*3/uL Normal 3.70-11.00 [facility] Comment on above: Order Comment: Speci men Type: BLOOD SPECIMENOrdering Facility: [facility] Address: [address] [place] [address] Performed By: #### 5 8410-2 ####[facility] LABORATORYCLIA [id number] [address] [place] CONSULT PROGon 07-13-2021 CONSULT PROG Normal [facility] CONSULT PROG Normal [facility] CONSULT PROG Normal [facility] Magnesium SerPl-mCncon 07-13 Magnesium [Mass/Vol] 2.1 mg/dL Normal 1.7-2.3 [facility] Comment on above: Order Comment: Speci men Type: BLOOD SPECIMENOrdering Facility: [facility] Address: [address] [place] [address] Performed By: #### 1 9123-9, 2777-1, 94192-4 ####[facility] LABORATORYCLIA [id number] [address] [place] Phosphate SerPl-mCncon 07-13 Phosphate [Mass/Vol] 3.7 mg/dL Normal 2.7-4.8 [facility] Comment on above: Order Comment: Speci men Type: BLOOD SPECIMENOrdering Facility: [facility] Address: [address] [place] [address] Performed By: #### 1 9123-9, 2777-1, 74297-6 ####[facility] LABORATORYCLIA [id number] [address] [place] THERAPY NTon 07-13-2021 THERAPY NT Normal [facility] THERAPY NT Normal [facility] Vancomycin random [Mass/Vol] on 07-13-2021 Vancomycin [Mass/Vol] 31.7 ug/mL High 10.0-20.0 [facility] Comment on above: Order Comment: Speci men Type: BLOOD SPECIMENOrdering Facility: [facility] Address: [address] [place] [address] Result Comment: Refe rence ranges and high/low indicator flags are provided as general guidelines only. The treating physician must determine appropriate target levels/dosing based on the specific clinical situation. Performed By: #### 4 091-5 ####[facility] LABORATORYCLIA [id number] [address] [place] [facility] aPTT PPPon 07-13-2021 aPTT Coag (PPP) [Time] 47.3 s High 23.0-32.4 [facility] Comment on above: Order Comment: Speci men Type: BLOOD SPECIMENOrdering Facility: [facility] Address: [address] [place] [address] Performed By: #### 1 4979-9 ####[facility] LABORATORYCLIA [id number] [address] [place] [facility] aPTT Coag (PPP) [Time] 51.2 s High 23.0-32.4 [facility] Comment on above: Order Comment: Speci men Type: BLOOD SPECIMENOrdering Facility: [facility] Address: [address] [place] [address] Performed By: #### 1 4979-9 ####[facility] LABORATORYCLIA [id number] [address] [facility] aPTT Coag (PPP) [Time] 47.5 s High 23.0-32.4 [facility] Comment on above: Order Comment: Speci men Type: BLOOD SPECIMENOrdering Facility: [facility] Address: [address] [place] [address] Performed By: #### 1 4979-9 ####[facility] LABORATORYCLIA [id number] [place] [address] [place] Basic metabolic 2000 panelon 07-12-2021 Anion gap [Moles/Vol] 7 mmol/L Low 9-18 [facility] Comment on above: Order Comment: Speci men Type: BLOOD SPECIMENOrdering Facility: [facility] Address: [address] [place] [address] Performed By: #### 1 9123-9, 2777-1, 07228-2 ####[facility] LABORATORYCLIA [id number] [place] [address] [place] Calcium [Mass/Vol] 8.3 mg/dL Low 8.5-10.2 [facility] Comment on above: Order Comment: Speci men Type: BLOOD SPECIMENOrdering Facility: [facility] Address: [address] [place] [address] Performed By: #### 1 9123-9, 2777-1, 69117-6 ####[facility] LABORATORYCLIA [id number] [place] [address] [place] Chloride [Moles/Vol] 101 mmol/L Normal 97-105 [facility] Comment on above: Order Comment: Speci men Type: BLOOD SPECIMENOrdering Facility: [facility] Address: [address] [place] [address] Performed By: #### 1 9123-9, 27771, 52189-5 ####[facility] LABORATORYCLIA [id number] [place] [address] [place] CO2 [Moles/Vol] 32 mmol/L High 22-30 [facility] Comment on above: Order Comment: Speci men Type: BLOOD SPECIMENOrdering Facility: [facility] Address: [address] [place] [address] Performed By: #### 1 9123-9, 2777-1, 36776-9 ####[facility] [id number] [address] [place] Creatinine [Mass/Vol] 0.70 mg/dL Low 0.73-1.22 [facility] Comment on above: Order Comment: Shira feldman Type: BLOOD SPECIMENOrdering Facility: [facility] Address: [address] [place] [address] Performed By: #### 1 9123-9, 2777-1, 01203-8 ####[facility] [id number] [address] [facility] ESTIMATED GLOMERULAR FILTRATION RATE 100 mL/min/1.73m??? Normal >=60 [facility] Comment on above: Order Comment: Shira feldman Type: BLOOD SPECIMENOrdering Facility: [facility] Address: [address] [place] [address] Result Comment: Luzmaria mated Glomerular Filtration Rate [...] GFR. Performed By: #### 1 9123-9, 2777-, 16145-2 ####[facility] [id number] [address] [place] [facility] Glucose [Mass/Vol] 104 mg/dL High 74-99 [facility] Comment on above: Order Comment: Shira feldman Type: BLOOD SPECIMENOrdering Facility: [facility] Address: [address] [place] [address] Result Comment: The [place] [employer] (ADA) provides guidance for cutoff [...] Standards of Medical Care in Diabetes 2016, [place] [employer]. Diabetes Care. 2016.39(Suppl 1). Performed By: #### 1 9123-9, 2777-1, 88239-4 ####[facility] LABORATORYCLIA [id number] [place] [address] [place] Potassium [Moles/Vol] 3.7 mmol/L Normal 3.7-5.1 [facility] Comment on above: Order Comment: Speci men Type: BLOOD SPECIMENOrdering Facility: [facility] Address: [address] [place] [address] Performed By: #### 1 9123-9, 27711-04, 89770-0 ####[facility] [id number] [address] [place] [facility] Sodium [Moles/Vol] 140 mmol/L Normal 136-144 [facility] Comment on above: Order Comment: Speci men Type: BLOOD SPECIMENOrdering Facility: [facility] Address: [address] [place] [address] Performed By: #### 1 9123-9, 27711-04, 73928-5 ####[facility] LABORATORYCLIA [id number] [address] STATES [facility] Urea nitrogen [Mass/Vol] 12 mg/dL Normal 9-24 [facility] Comment on above: Order Comment: Speci men Type: BLOOD SPECIMENOrdering Facility: [facility] Address: [address] [address] Performed By: #### 1 9123-9, 27711-04, 45157-4 ####[facility] LABORATORYCLIA [id number] [address] [place] CBC panel Auto (Bld)on 07-12 Erythrocyte distribution width (RBC) [Ratio] 16.1 % High 11.5-15.0 [facility] Comment on above: Order Comment: Speci men Type: BLOOD SPECIMENOrdering Facility: [facility] Address: [address] [place] [address] Performed By: #### 5 8410-2 ####[facility] LABORATORYCLIA [id number] [address] Hematocrit (Bld) [Volume fraction] 28.2 % Low 39.0-51.0 [facility] Comment on above: Order Comment: Speci men Type: BLOOD SPECIMENOrdering Facility: [facility] Address: [address] [place] [address] Performed By: #### 5 8410-2 ####[facility] LABORATORYCLIA [id number] [address] [facility] Hemoglobin (Bld) [Mass/Vol] 8.5 g/dL Low 13.0-17.0 [facility] Comment on above: Order Comment: Speci men Type: BLOOD SPECIMENOrdering Facility: [facility] Address: [address] [place] [address] Performed By: #### 5 8410-2 ####[facility] LABORATORYCLIA [id number] [address] MCH (RBC) [Entitic mass] 26.8 pg Normal 26.0-34.0 [facility] Comment on above: Order Comment: Speci men Type: BLOOD SPECIMENOrdering Facility: [facility] Address: [address] [place] [address] Performed By: #### 5 8410-2 ####[facility] LABORATORYCLIA [id number] [address] [place] MCHC (RBC) [Mass/Vol] 30.1 g/dL Low 30.5-36.0 [facility] Comment on above: Order Comment: Speci men Type: BLOOD SPECIMENOrdering Facility: [facility] Address: [address] [place] [address] Performed By: #### 5 8410-2 ####[facility] LABORATORYCLIA [id number] [address] MCV (RBC) [Entitic vol] 89.0 fL Normal 80.0-100.0 [facility] Comment on above: Order Comment: Speci men Type: BLOOD SPECIMENOrdering Facility: [facility] Address: [address] [place] [address] Performed By: #### 5 8410-2 ####[facility] LABORATORYCLIA [id number] [address] Nucleated RBC (Bld) [#/Vol] 10*3/uL Normal <0.01 [facility] Comment on above: Order Comment: Speci men Type: BLOOD SPECIMENOrdering Facility: [facility] Address: [address] [place] [address] Performed By: #### 5 8410-2 ####[facility] LABORATORYCLIA [id number] [address] Platelet mean volume (Bld) [Entitic vol] 9.6 fL Normal 9.0-12.7 [facility] Comment on above: Order Comment: Speci men Type: BLOOD SPECIMENOrdering Facility: [facility] Address: [address] [place] [address] Performed By: #### 5 8410-2 ####[facility] LABORATORYCLIA [id number] [address] Platelets (Bld) [#/Vol] 340 10*3/uL Normal 150-400 [facility] Comment on above: Order Comment: Speci men Type: BLOOD SPECIMENOrdering Facility: [facility] Address: [address] [place] [address] Performed By: #### 5 8410-2 ####[facility] LABORATORYCLIA [id number] [address] RBC (Bld) [#/Vol] 3.17 10*6/uL Low 4.20-6.00 [facility] Comment on above: Order Comment: Speci men Type: BLOOD SPECIMENOrdering Facility: [facility] Address: [address] [place] [address] Performed By: #### 5 8410-2 ####[facility] LABORATORYCLIA [id number] [address] WBC (Bld) [#/Vol] 8.66 10*3/uL Normal 3.70-11.00 [facility] Comment on above: Order Comment: Speci men Type: BLOOD SPECIMENOrdering Facility: [facility] Address: [address] [place] [address] Performed By: #### 5 8410-2 ####[facility] LABORATORYCLIA [id number] [address] CONSULTon 07-12-2021 CONSULT Normal [facility] CONSULT PROGon 07-12-2021 CONSULT PROG Normal [facility] Magnesium SerPl-ncon 07-12 Magnesium [Mass/Vol] 2.1 mg/dL Normal 1.7-2.3 [facility] Comment on above: Order Comment: Speci men Type: BLOOD SPECIMENOrdering Facility: [facility] Address: [address] [place] [address] Performed By: #### 1 9123-9, 2777-1, 43791-3 ####[facility] LABORATORYCLIA [id number] [address] NURSING PROGon 07-12-2021 NURSING PROG Normal [facility] Phosphate SerPl-mCncon 07-12 Phosphate [Mass/Vol] 3.1 mg/dL Normal 2.7-4.8 [facility] Comment on above: Order Comment: Speci men Type: BLOOD SPECIMENOrdering Facility: [facility] Address: [address] [place] [address] Performed By: #### 1 9123-9, 2777-1, 14238-2 ####[facility] LABORATORYCLIA [id number] [address] THERAPY NTon 07-12-2021 THERAPY NT Normal [facility] aPTT PPPon 07-12-2021 aPTT Coag (PPP) [Time] 49.5 s High 23.0-32.4 [facility] Comment on above: Order Comment: Speci men Type: BLOOD SPECIMENOrdering Facility: [facility] Address: [address] [place] [address] Performed By: #### 1 4979-9 ####[facility] LABORATORYCLIA [id number] [address] aPTT Coag (PPP) [Time] 68.0 s High 23.0-32.4 [facility] Comment on above: Order Comment: Speci men Type: BLOOD SPECIMENOrdering Facility: [facility] Address: [address] [place] [address] Performed By: #### 1 4979-9 ####[facility] LABORATORYCLIA [id number] [address] aPTT Coag (PPP) [Time] 80.0 s High 23.0-32.4 [facility] Comment on above: Order Comment: Speci men Type: BLOOD SPECIMENOrdering Facility: [facility] Address: [address] [place] [address] Performed By: #### 1 4979-9 ####[facility] LABORATORYCLIA [id number] [address] CASE MGT INIT ASSESon 2021 CASE MGT INIT ASSES Normal [facility] CBC panel Auto (Bld)on 07-11 Erythrocyte distribution width (RBC) [Ratio] 16.3 % High 11.5-15.0 [facility] Comment on above: Order Comment: Speci men Type: BLOOD SPECIMENOrdering Facility: [facility] Address: [address] [place] [address] Performed By: #### 5 8410-2 ####[facility] LABORATORYCLIA [id number] [address] Hematocrit (Bld) [Volume fraction] 28.3 % Low 39.0-51.0 [facility] Comment on above: Order Comment: Speci men Type: BLOOD SPECIMENOrdering Facility: [facility] Address: [address] [place] [address] Performed By: #### 5 8410-2 ####[facility] LABORATORYCLIA [id number] [address] [place] [facility] Hemoglobin (Bld) [Mass/Vol] 8.8 g/dL Low 13.0-17.0 [facility] Comment on above: Order Comment: Speci men Type: BLOOD SPECIMENOrdering Facility: [facility] Address: [address] [place] [address] Performed By: #### 5 8410-2 ####[facility] LABORATORYCLIA [id number] [address] [place] MCH (RBC) [Entitic mass] 27.4 pg Normal 26.0-34.0 [facility] Comment on above: Order Comment: Speci men Type: BLOOD SPECIMENOrdering Facility: [facility] Address: [address] [place] [address] Performed By: #### 5 8410-2 ####[facility] LABORATORYCLIA [id number] [address] [place] MCHC (RBC) [Mass/Vol] 31.1 g/dL Normal 30.5-36.0 [facility] Comment on above: Order Comment: Speci men Type: BLOOD SPECIMENOrdering Facility: [facility] Address: [address] [place] [address] Performed By: #### 5 8410-2 ####[facility] LABORATORYCLIA [id number] [address] MCV (RBC) [Entitic vol] 88.2 fL Normal 80.0-100.0 [facility] Comment on above: Order Comment: Speci men Type: BLOOD SPECIMENOrdering Facility: [facility] Address: [address] [place] [address] Performed By: #### 5 8410-2 ####[facility] LABORATORYCLIA [id number] [address] [place] Nucleated RBC (Bld) [#/Vol] 10*3/uL Normal <0.01 [facility] Comment on above: Order Comment: Speci men Type: BLOOD SPECIMENOrdering Facility: [facility] Address: [address] [place] [address] Performed By: #### 5 8410-2 ####[facility] LABORATORYCLIA [id number] [address] [place] Platelet mean volume (Bld) [Entitic vol] 9.7 fL Normal 9.0-12.7 [facility] Comment on above: Order Comment: Speci men Type: BLOOD SPECIMENOrdering Facility: [facility] Address: [address] [place] [address] Performed By: #### 5 8410-2 ####[facility] LABORATORYCLIA [id number] [address] [place] Platelets (Bld) [#/Vol] 315 10*3/uL Normal 150-400 [facility] Comment on above: Order Comment: Speci men Type: BLOOD SPECIMENOrdering Facility: [facility] Address: [address] [place] [address] Performed By: #### 5 8410-2 ####[facility] LABORATORYCLIA [id number] [address] [place] RBC (Bld) [#/Vol] 3.21 10*6/uL Low 4.20-6.00 [facility] Comment on above: Order Comment: Speci men Type: BLOOD SPECIMENOrdering Facility: [facility] Address: [address] [place] [address] Performed By: #### 5 8410-2 ####[facility] LABORATORYCLIA [id number] [address] [place] WBC (Bld) [#/Vol] 9.18 10*3/uL Normal 3.70-11.00 [facility] Comment on above: Order Comment: Speci men Type: BLOOD SPECIMENOrdering Facility: [facility] Address: [address] [place] [address] Performed By: #### 5 8410-2 ####[facility] LABORATORYCLIA [id number] [address] CONSULT PROGon 07-11-2021 CONSULT PROG Normal [facility] CT BRAIN WO IVCONon 07-12-[address] BRAIN WO IVCON Normal [facility] Magnesium SerPl-mCncon 07-11 Magnesium [Mass/Vol] 2.1 mg/dL Normal 1.7-2.3 [facility] Comment on above: Order Comment: Speci men Type: BLOOD SPECIMENOrdering Facility: [facility] Address: [address] [place] [address] Performed By: #### 1 9123-9, 2777-1 ####[facility] LABORATORYCLIA [id number] [address] NURSING PROGon 07-11-2021 NURSING PROG Normal [facility] NURSING PROG Normal [facility] Phosphate SerPl-mCncon 07-11 Phosphate [Mass/Vol] 3.4 mg/dL Normal 2.7-4.8 [facility] Comment on above: Order Comment: Speci men Type: BLOOD SPECIMENOrdering Facility: [facility] Address: [address] [place] [address] Performed By: #### 1 9123-9, 2777-1 ####[facility] LABORATORYCLIA [id number] [address] [place] THERAPY NTon 07-11-2021 THERAPY NT Normal [facility] Vancomycin random [Mass/Vol] on 07-11-2021 Vancomycin [Mass/Vol] 28.6 ug/mL High 10.0-20.0 [facility] Comment on above: Order Comment: Speci men Type: BLOOD SPECIMENOrdering Facility: [facility] Address: [address] [place] [address] Result Comment: Refe rence ranges and high/low indicator flags are provided as general guidelines only. The treating physician must determine appropriate target levels/dosing based on the specific clinical situation. Performed By: #### 4 091-5 ####[facility] LABORATORYCLIA [id number] [address] aPTT PPPon 07-11-2021 aPTT Coag (PPP) [Time] 62.0 s High 23.0-32.4 [facility] Comment on above: Order Comment: Speci men Type: BLOOD SPECIMENOrdering Facility: [facility] Address: [address] [place] [address] Performed By: #### 1 4979-9 ####[facility] LABORATORYCLIA [id number] [address] aPTT Coag (PPP) [Time] 52.7 s High 23.0-32.4 [facility] Comment on above: Order Comment: Speci men Type: BLOOD SPECIMENOrdering Facility: [facility] Address: [address] [place] [address] Performed By: #### 1 4979-9 ####[facility] LABORATORYCLIA [id number] [address] aPTT Coag (PPP) [Time] 29.9 s Normal 23.0-32.4 [facility] Comment on above: Order Comment: Speci men Type: BLOOD SPECIMENOrdering Facility: [facility] Address: [address] [address] Performed By: #### 1 4979-9 ####[facility] LABORATORYCLIA [id number] [address] [place] Basic metabolic 2000 panelon 07-10-2021 Anion gap [Moles/Vol] 14 mmol/L Normal 9-18 [facility] Comment on above: Order Comment: Speci men Type: BLOOD SPECIMENOrdering Facility: [facility] Address: [address] [place] [address] Performed By: #### 1 9123-9, 27771, 96074-2 ####[facility] LABORATORYCLIA [id number] [place] [address] [place] Calcium [Mass/Vol] 8.5 mg/dL Normal 8.5-10.2 [facility] Comment on above: Order Comment: Speci men Type: BLOOD SPECIMENOrdering Facility: [facility] Address: [address] [place] [address] Performed By: #### 1 9123-9, 27711-04, 68631-1 ####[facility] LABORATORYCLIA [id number] [place] [address] [place] Chloride [Moles/Vol] 100 mmol/L Normal 97-105 [facility] Comment on above: Order Comment: Speci men Type: BLOOD SPECIMENOrdering Facility: [facility] Address: [address] [place] [address] Performed By: #### 1 9123-9, 27711-04, 50660-2 ####[facility] LABORATORYCLIA [id number] [place] [address] [place] CO2 [Moles/Vol] 27 mmol/L Normal 22-30 [facility] Comment on above: Order Comment: Speci men Type: BLOOD SPECIMENOrdering Facility: [facility] Address: [address] [place] [address] Performed By: #### 1 9123-9, 27711-04, 33157-6 ####[facility] LABORATORYCLIA [id number] [place] [address] [place] Creatinine [Mass/Vol] 0.66 mg/dL Low 0.73-1.22 [facility] Comment on above: Order Comment: Speci men Type: BLOOD SPECIMENOrdering Facility: [facility] Address: [address] [address] Performed By: #### 1 9123-9, 2777, 46358-0 ####[facility]ORATORYCLIA [id number] [place] [address] [place] ESTIMATED GLOMERULAR FILTRATION RATE 102 mL/min/1.73m??? Normal >=60 [facility] Comment on above: Order Comment: Shira francia Type: BLOOD SPECIMENOrdering Facility: [facility] Address: [address] [place] [address] Result Comment: Luzmaria mated Glomerular Filtration Rate [...] GFR. Performed By: #### 1 9123-9, 2777-1, 63417-3 ####[facility] LABORATORYCLIA [id number] [place] [address] [place] Glucose [Mass/Vol] 93 mg/dL Normal 74-99 [facility] Comment on above: Order Comment: Shira feldman Type: BLOOD SPECIMENOrdering Facility: [facility] Address: [address] [place] [address] Result Comment: The [place] [employer] (ADA) provides guidance for cutoff [...] Standards of Medical Care in Diabetes 2016, [place] [employer]. Diabetes Care. 2016.39(Suppl 1). Performed By: #### 1 9123-9, 2777-1, 50119-3 ####[facility] LABORATORYCLIA [id number] [place] [id number] [place] Potassium [Moles/Vol] 3.5 mmol/L Low 3.7-5.1 [facility] Comment on above: Order Comment: Speci men Type: BLOOD SPECIMENOrdering Facility: [facility] Address: [address] [place] [address] Performed By: #### 1 9123-9, 2777-, 27002-1 ####[facility] LABORATORYCLIA [id number] [address] STATES [facility] Sodium [Moles/Vol] 141 mmol/L Normal 136-144 [facility] Comment on above: Order Comment: Speci men Type: BLOOD SPECIMENOrdering Facility: [facility] Address: [address] [place] [address] Performed By: #### 1 9123-9, 2777, 98561-1 ####[facility] LABORATORYCLIA [id number] [address] [place] [facility] Urea nitrogen [Mass/Vol] 11 mg/dL Normal 9-24 [facility] Comment on above: Order Comment: Speci men Type: BLOOD SPECIMENOrdering Facility: [facility] Address: [address] [place] [address] Performed By: #### 1 9123-9, 2777, 17616-7 ####[facility] LABORATORYCLIA [id number] [address] [place] [facility] CBC panel Auto (Bld)on 07-10 Erythrocyte distribution width (RBC) [Ratio] 16.2 % High 11.5-15.0 [facility] Comment on above: Order Comment: Speci men Type: BLOOD SPECIMENOrdering Facility: [facility] Address: [address] [place] [address] Performed By: #### 5 8410-2 ####[facility] LABORATORYCLIA [id number] [address] Hematocrit (Bld) [Volume fraction] 30.6 % Low 39.0-51.0 [facility] Comment on above: Order Comment: Speci men Type: BLOOD SPECIMENOrdering Facility: [facility] Address: [address] [place] [address] Performed By: #### 5 8410-2 ####[facility] LABORATORYCLIA [id number] [address] Hemoglobin (Bld) [Mass/Vol] 9.6 g/dL Low 13.0-17.0 [facility] Comment on above: Order Comment: Speci men Type: BLOOD SPECIMENOrdering Facility: [facility] Address: [address] [place] [address] Performed By: #### 5 8410-2 ####[facility] LABORATORYCLIA [id number] [address] MCH (RBC) [Entitic mass] 28.3 pg Normal 26.0-34.0 [facility] Comment on above: Order Comment: Speci men Type: BLOOD SPECIMENOrdering Facility: [facility] Address: [address] [place] [address] Performed By: #### 5 8410-2 ####[facility] LABORATORYCLIA [id number] [address] STATES [facility] MCHC (RBC) [Mass/Vol] 31.4 g/dL Normal 30.5-36.0 [facility] Comment on above: Order Comment: Speci men Type: BLOOD SPECIMENOrdering Facility: [facility] Address: [address] [place] [address] Performed By: #### 5 8410-2 ####[facility] LABORATORYCLIA [id number] [address] STATES [facility] MCV (RBC) [Entitic vol] 90.3 fL Normal 80.0-100.0 [facility] Comment on above: Order Comment: Speci men Type: BLOOD SPECIMENOrdering Facility: [facility] Address: [address] [place] [address] Performed By: #### 5 8410-2 ####[facility] LABORATORYCLIA [id number] [address] Nucleated RBC (Bld) [#/Vol] 10*3/uL Normal <0.01 [facility] Comment on above: Order Comment: Speci men Type: BLOOD SPECIMENOrdering Facility: [facility] Address: [address] [place] [address] Performed By: #### 5 8410-2 ####[facility] LABORATORYCLIA [id number] [place] [address] [place] Platelet mean volume (Bld) [Entitic vol] 9.7 fL Normal 9.0-12.7 [facility] Comment on above: Order Comment: Speci men Type: BLOOD SPECIMENOrdering Facility: [facility] Address: [address] [place] [address] Performed By: #### 5 8410-2 ####[facility] LABORATORYCLIA [id number] [address] [place] Platelets (Bld) [#/Vol] 306 10*3/uL Normal 150-400 [facility] Comment on above: Order Comment: Speci men Type: BLOOD SPECIMENOrdering Facility: [facility] Address: [address] [place] [address] Performed By: #### 5 8410-2 ####[facility] LABORATORYCLIA [id number] [place] [address] [place] RBC (Bld) [#/Vol] 3.39 10*6/uL Low 4.20-6.00 [facility] Comment on above: Order Comment: Speci men Type: BLOOD SPECIMENOrdering Facility: [facility] Address: [address] [place] [address] Performed By: #### 5 8410-2 ####[facility] LABORATORYCLIA [id number] [address] [place] WBC (Bld) [#/Vol] 9.81 10*3/uL Normal 3.70-11.00 [facility] Comment on above: Order Comment: Speci men Type: BLOOD SPECIMENOrdering Facility: [facility] Address: [address] [place] [address] Performed By: #### 5 8410-2 ####[facility] LABORATORYCLIA [id number] [address] [place] CONSULTon 07-10-2021 CONSULT Normal [facility] CONSULT Normal [facility] Magnesium SerPl-mCncon 07-10 Magnesium [Mass/Vol] 1.9 mg/dL Normal 1.7-2.3 [facility] Comment on above: Order Comment: Speci men Type: BLOOD SPECIMENOrdering Facility: [facility] Address: [address] [place] [address] Performed By: #### 1 9123-9, 2777-1, 08348-3 ####[facility] LABORATORYCLIA [id number] [address] NURSING PROGon 07-10-2021 NURSING PROG Normal [facility] NURSING PROG Normal [facility] NUTRITIONon 07-10-2021 NUTRITION Normal [facility] Phosphate SerPl-mCncon 07-10 Phosphate [Mass/Vol] 3.6 mg/dL Normal 2.7-4.8 [facility] Comment on above: Order Comment: Speci men Type: BLOOD SPECIMENOrdering Facility: [facility] Address: [address] [place] [address] Performed By: #### 1 9123-9, 2777-1, 97095-6 ####[facility] LABORATORYCLIA [id number] [address] [place] US DVT LOWER BILon US DVT LOWER RAINER Normal [facility] aPTT PPPon 07-10-2021 aPTT Coag (PPP) [Time] 28.8 s Normal 23.0-32.4 [facility] Comment on above: Order Comment: Speci men Type: BLOOD SPECIMENOrdering Facility: [facility] Address: [address] [place] [address] Performed By: #### 1 4979-9 ####[facility] LABORATORYCLIA [id number] [place] [address] [place] aPTT Coag (PPP) [Time] 28.4 s Normal 23.0-32.4 [facility] Comment on above: Order Comment: Speci men Type: BLOOD SPECIMENOrdering Facility: [facility] Address: [address] [place] [address] Performed By: #### 1 4979-9 ####[facility] LABORATORYCLIA [id number] [place] [address] [place] ALLIED HEALTHon 07-09-2021 ALLIED HEALTH Normal [facility] Basic metabolic 2000 panelon 07-09-2021 Anion gap [Moles/Vol] 9 mmol/L Normal 9-18 [facility] Comment on above: Order Comment: Speci men Type: BLOOD SPECIMENOrdering Facility: [facility] Address: [address] [place] [address] Performed By: #### 1 9123-9, 2777-1, 94557-1 ####[facility] LABORATORYCLIA [id number] [place] [address] [place] Calcium [Mass/Vol] 8.3 mg/dL Low 8.5-10.2 [facility] Comment on above: Order Comment: Speci men Type: BLOOD SPECIMENOrdering Facility: [facility] Address: [address] [place] [address] Performed By: #### 1 9123-9, 2777-1, 81226-8 ####[facility] LABORATORYCLIA [id number] [place] [address] [place] Chloride [Moles/Vol] 100 mmol/L Normal 97-105 [facility] Comment on above: Order Comment: Speci men Type: BLOOD SPECIMENOrdering Facility: [facility] Address: [address] [place] [address] Performed By: #### 1 9123-9, 2777-1, 22371-9 ####[facility] LABORATORYCLIA [id number] [place] [address] [place] CO2 [Moles/Vol] 29 mmol/L Normal 22-30 [facility] Comment on above: Order Comment: Speci men Type: BLOOD SPECIMENOrdering Facility: [facility] Address: [address] [place] [address] Performed By: #### 1 9123-9, 2777-, 26062-1 ####[facility]ITALCLIA [id number] [place] [address] [place] Creatinine [Mass/Vol] 0.61 mg/dL Low 0.73-1.22 [facility] Comment on above: Order Comment: Speci men Type: BLOOD SPECIMENOrdering Facility: [facility] Address: [address] [place] [address] Performed By: #### 1 9123-9, 27711-04, 42263-6 ####[facility] [id number] [address] [place] [facility] ESTIMATED GLOMERULAR FILTRATION RATE 104 mL/min/1.73m??? Normal >=60 [facility] Comment on above: Order Comment: Speci men Type: BLOOD SPECIMENOrdering Facility: [facility] Address: [address] [place] [address] Result Comment: Luzmaria mated Glomerular Filtration Rate [...] GFR. Performed By: #### 1 9123-9, 2777-, 26265-2 ####[facility] LABORATORYCLIA [id number] [place] [address] [place] Glucose [Mass/Vol] 106 mg/dL High 74-99 [facility] Comment on above: Order Comment: Speci men Type: BLOOD SPECIMENOrdering Facility: [facility] Address: [address] [place] [address] Result Comment: The [place] [employer] (ADA) provides guidance for cutoff [...] Standards of Medical Care in Diabetes 2016, [place] [employer]. Diabetes Care. 2016.39(Suppl 1). Performed By: #### 1 9123-9, 2777-, 51021-6 ####[facility] LABORATORYCLIA [id number] [place] [address] [place] Potassium [Moles/Vol] 3.6 mmol/L Low 3.7-5.1 [facility] Comment on above: Order Comment: Speci men Type: BLOOD SPECIMENOrdering Facility: [facility] Address: [address] [place] [address] Performed By: #### 1 9123-9, 2777, 12807-0 ####[facility] LABORATORYCLIA [id number] [place] [address] [place] Sodium [Moles/Vol] 138 mmol/L Normal 136-144 [facility] Comment on above: Order Comment: Speci men Type: BLOOD SPECIMENOrdering Facility: [facility] Address: [address] [address] Performed By: #### 1 9123-9, 2777, 30110-2 ####[facility] LABORATORYCLIA [id number] [place] [address] [place] Urea nitrogen [Mass/Vol] 12 mg/dL Normal 9-24 [facility] Comment on above: Order Comment: Speci men Type: BLOOD SPECIMENOrdering Facility: [facility] Address: [address] [address] Performed By: #### 1 9123-9, 2777-, 52835-4 ####[facility] LABORATORYCLIA [id number] [address] [place] [facility] CBC panel Auto (Bld)on 07-09 Erythrocyte distribution width (RBC) [Ratio] 16.2 % High 11.5-15.0 [facility] Comment on above: Order Comment: Speci men Type: BLOOD SPECIMENOrdering Facility: [facility] Address: [address] [place] [address] Performed By: #### 5 8410-2 ####[facility] LABORATORYCLIA [id number] [address] Hematocrit (Bld) [Volume fraction] 29.0 % Low 39.0-51.0 [facility] Comment on above: Order Comment: Speci men Type: BLOOD SPECIMENOrdering Facility: [facility] Address: [address] [place] [address] Performed By: #### 5 8410-2 ####[facility] LABORATORYCLIA [id number] [address] Hemoglobin (Bld) [Mass/Vol] 8.8 g/dL Low 13.0-17.0 [facility] Comment on above: Order Comment: Speci men Type: BLOOD SPECIMENOrdering Facility: [facility] Address: [address] [place] [address] Performed By: #### 5 8410-2 ####[facility] LABORATORYCLIA [id number] [address] STATES [facility] MCH (RBC) [Entitic mass] 27.0 pg Normal 26.0-34.0 [facility] Comment on above: Order Comment: Speci men Type: BLOOD SPECIMENOrdering Facility: [facility] Address: [address] [place] [address] Performed By: #### 5 8410-2 ####[facility] LABORATORYCLIA [id number] [address] STATES [facility] MCHC (RBC) [Mass/Vol] 30.3 g/dL Low 30.5-36.0 [facility] Comment on above: Order Comment: Speci men Type: BLOOD SPECIMENOrdering Facility: [facility] Address: [address] [place] [address] Performed By: #### 5 8410-2 ####[facility] LABORATORYCLIA [id number] [address] MCV (RBC) [Entitic vol] 89.0 fL Normal 80.0-100.0 [facility] Comment on above: Order Comment: Speci men Type: BLOOD SPECIMENOrdering Facility: [facility] Address: [address] [place], [place] [address] Performed By: #### 5 8410-2 ####[facility] LABORATORYCLIA [id number] [address] [facility] Nucleated RBC (Bld) [#/Vol] 10*3/uL Normal <0.01 [facility] Comment on above: Order Comment: Speci men Type: BLOOD SPECIMENOrdering Facility: [facility] Address: [address] [place] [address] Performed By: #### 5 8410-2 ####[facility] LABORATORYCLIA [id number] [address] Platelet mean volume (Bld) [Entitic vol] 9.8 fL Normal 9.0-12.7 [facility] Comment on above: Order Comment: Speci men Type: BLOOD SPECIMENOrdering Facility: [facility] Address: [address] [place] [address] [place], [place] [address] Performed By: #### 5 8410-2 ####[facility] LABORATORYCLIA [id number] [address] Platelets (Bld) [#/Vol] 281 10*3/uL Normal 150-400 [facility] Comment on above: Order Comment: Speci men Type: BLOOD SPECIMENOrdering Facility: [facility] Address: [address] [place], [place] [address] Performed By: #### 5 8410-2 ####[facility] LABORATORYCLIA [id number] [place] [address] [place] RBC (Bld) [#/Vol] 3.26 10*6/uL Low 4.20-6.00 [facility] Comment on above: Order Comment: Speci men Type: BLOOD SPECIMENOrdering Facility: [facility] Address: [address] [place] [address] Performed By: #### 5 8410-2 ####[facility] LABORATORYCLIA [id number] [address] [place] WBC (Bld) [#/Vol] 9.12 10*3/uL Normal 3.70-11.00 [facility] Comment on above: Order Comment: Speci men Type: BLOOD SPECIMENOrdering Facility: [facility] Address: [address] [place] [address] Performed By: #### 5 8410-2 ####[facility] LABORATORYCLIA [id number] [address] [place] CONSULT PROGon 07-09-2021 CONSULT PROG Normal [facility] CONSULT PROG Normal [facility] HISTORY PHYSICALon HISTORY PHYSICAL Normal [facility] Magnesium SerPl-mCncon 07-09 Magnesium [Mass/Vol] 1.9 mg/dL Normal 1.7-2.3 [facility] Comment on above: Order Comment: Speci men Type: BLOOD SPECIMENOrdering Facility: [facility] Address: [address] [place] [address] Performed By: #### 1 9123-9, 2777-1, 57907-2 ####[facility] LABORATORYCLIA [id number] [address] [place] Phosphate SerPl-mCncon 07-09 Phosphate [Mass/Vol] 3.6 mg/dL Normal 2.7-4.8 [facility] Comment on above: Order Comment: Speci men Type: BLOOD SPECIMENOrdering Facility: [facility] Address: [address] [place] [address], [place] [address] Performed By: #### 1 9123-9, 2777-1, 18689-9 ####[facility] LABORATORYCLIA [id number] [address] [place] THERAPY NTon 07-09-2021 THERAPY NT Normal [facility] XR ABDOMEN 1V SUPINEon 07-09 XR ABDOMEN 1V SUPINE Normal [facility] ALLIED HEALTHon 07-08-2021 ALLIED HEALTH Normal [facility] ALLIED HEALTH Normal [facility] ALLIED HEALTH Normal [facility] ANES PRE-OPon 07-08-2021 ANES PRE-OP Normal [facility] BRIEF OP NOTon 07-08-2021 BRIEF OP NOT Normal [facility] Bacteria Bld Culton 07-09-19 22 Bacteria identified Cx Nom (Bld) CULTURE, BLOOD: No growth 5 days Normal [facility] Comment on above: Performed By: #### 6 00-7 ####[facility] LABORATORYCLIA [id number] [address] Bacteria identified Cx Nom (Bld) CULTURE, BLOOD: No growth 5 days Normal [facility] Comment on above: Performed By: #### 6 00-7 ####[facility] LABORATORYCLIA [id number] [address] [facility] Bacteria CSF Culton 07-09-19 22 Bacteria identified Cx Nom (CSF) CULTURE, CSF: No growth 14 days GRAM STAIN: No organisms seen No Polymorphonuclear Leukocytes Few Red Blood Cells Gram stain performed on cytospun specimen. Normal [facility] Comment on above: Performed By: #### 6 06-4 ####[facility] LABORATORYCLIA [id number] [address] Bacteria Ur Culton 2 Bacteria identified Cx Nom (U) ORGANISM ID: 1 10,000 -<50,000 CFU/ml Proteus species Insignificant colony count. No further workup. ORGANISM ID: 2 <10,000 CFU/ml Normal urogenital chris Normal [facility] Comment on above: Performed By: #### 6 30-4 ####[facility] LABORATORYCLIA [id number] [place] [address] [place] Bacteria Wnd Culton 07-09-19 22 Bacteria identified Cx Nom (Wound) ORGANISM ID: 1 Coagulase negative staphylococcus Growth in Enrichment Broth Only No susceptibility testing done. Call lab within 72 hours to initiate work-up if clinically indicated. GRAM STAIN: Account credited. Not performed on this specimen type. Normal [facility] Comment on above: Performed By: #### 6 462-6 ####[facility] LABORATORYCLIA [id number] [address] Bacteria identified Cx Nom (Wound) ORGANISM ID: 1 Rare Coagulase negative staphylococcus No susceptibility testing done. Call lab within 72 hours to initiate work-up if clinically indicated. GRAM STAIN: Account credited. Not performed on this specimen type. [facility] Comment on above: Performed By: #### 6 462-6 ####[facility] LABORATORYCLIA [id number] [address] Bacteria identified Cx Nom (Wound) CULTURE, INTRAOPERATIVE HARDWARE: No growth 14 days GRAM STAIN: Account credited. Not performed on this specimen type. Normal [facility] Comment on above: Performed By: #### 6 462-6 ####[facility] LABORATORYCLIA [id number] [address] [place] Basic metabolic 2000 panelon 07-08-2021 Anion gap [Moles/Vol] 9 mmol/L Normal 9-18 [facility] Comment on above: Order Comment: Speci men Type: BLOOD SPECIMENOrdering Facility: [facility] Address: [address] [place] [address] Performed By: #### 2 4321-2 ####[facility] LABORATORYCLIA [id number] [address] STATES OF [facility] Calcium [Mass/Vol] 8.5 mg/dL Normal 8.5-10.2 [facility] Comment on above: Order Comment: Speci men Type: BLOOD SPECIMENOrdering Facility: [facility] Address: [address] [address] Performed By: #### 2 4321-2 ####[facility] LABORATORYCLIA [id number] [place] [address] [place] Chloride [Moles/Vol] 98 mmol/L Normal 97-105 [facility] Comment on above: Order Comment: Speci men Type: BLOOD SPECIMENOrdering Facility: [facility] Address: [address] [place] [address] Performed By: #### 2 4321-2 ####[facility] LABORATORYCLIA [id number] [place] [address] [place] CO2 [Moles/Vol] 31 mmol/L High 22-30 [facility] Comment on above: Order Comment: Speci men Type: BLOOD SPECIMENOrdering Facility: [facility] Address: [address] [place] [address] Performed By: #### 2 4321-2 ####[facility] LABORATORYCLIA [id number] [address] STATES OF [facility] Creatinine [Mass/Vol] 0.64 mg/dL Low 0.73-1.22 [facility] Comment on above: Order Comment: Speci men Type: BLOOD SPECIMENOrdering Facility: [facility] Address: [address] [place] [address] Performed By: #### 2 4321-2 ####[facility] LABORATORYCLIA [id number] [address] [facility] ESTIMATED GLOMERULAR FILTRATION RATE 102 mL/min/1.73m??? Normal >=60 [facility] Comment on above: Order Comment: Speci men Type: BLOOD SPECIMENOrdering Facility: [facility] Address: [address] [place] [address] Result Comment: Luzmaria mated Glomerular Filtration Rate [...] actual GFR. Performed By: #### 2 4321-2 ####[facility] LABORATORYCLIA [id number] [place] [address] [place] Glucose [Mass/Vol] 114 mg/dL High 74-99 [facility] Comment on above: Order Comment: Shira feldman Type: BLOOD SPECIMENOrdering Facility: [facility] Address: [address] [place] [address] Result Comment: The [place] [employer] (ADA) provides guidance for cutoff [...] Standards of Medical Care in Diabetes 2016, [place] [employer]. Diabetes Care. 2016.39(Suppl 1). Performed By: #### 2 4321-2 ####[facility] LABORATORYCLIA [id number] [place] [address] [place] Potassium [Moles/Vol] 3.4 mmol/L Low 3.7-5.1 [facility] Comment on above: Order Comment: Shira feldman Type: BLOOD SPECIMENOrdering Facility: [facility] Address: [address] [address] Performed By: #### 2 4321-2 ####[facility] LABORATORYCLIA [id number] [place] [address] [place] Sodium [Moles/Vol] 138 mmol/L Normal 136-144 [facility] Comment on above: Order Comment: Shira feldman Type: BLOOD SPECIMENOrdering Facility: [facility] Address: [address] [address] Performed By: #### 2 4321-2 ####[facility] LABORATORYCLIA [id number] [address] STATES [facility] Urea nitrogen [Mass/Vol] 14 mg/dL Normal 9-24 [facility] Comment on above: Order Comment: Speci men Type: BLOOD SPECIMENOrdering Facility: [facility] Address: [address] [place] [address] Performed By: #### 2 4321-2 ####[facility] LABORATORYCLIA [id number] [address] STATES [facility] CBC W Auto Differential pane l (Bld)on 07-08-2021 Basophils (Bld) [#/Vol] 0.05 10*3/uL Normal <0.11 [facility] Comment on above: Order Comment: Speci men Type: BLOOD SPECIMENOrdering Facility: [facility] Address: [address] [place] [address] Performed By: #### 5 7021-8 ####[facility] LABORATORYCLIA [id number] [address] Basophils/100 WBC (Bld) 0.4 % Normal [facility] Comment on above: Order Comment: Speci men Type: BLOOD SPECIMENOrdering Facility: [facility] Address: [address] [place] [address] Performed By: #### 5 7021-8 ####[facility] LABORATORYCLIA [id number] [address] Differential cell count method Nom (Bld) Auto Normal [facility] Comment on above: Order Comment: Speci men Type: BLOOD SPECIMENOrdering Facility: [facility] Address: [address] [place] [address] Performed By: #### 5 7021-8 ####[facility] LABORATORYCLIA [id number] [address] Eosinophils (Bld) [#/Vol] 0.68 10*3/uL High <0.46 [facility] Comment on above: Order Comment: Speci men Type: BLOOD SPECIMENOrdering Facility: [facility] Address: [address] [place] [address] Performed By: #### 5 7021-8 ####[facility]ORATORYCLIA [id number] [address] Eosinophils/100 WBC (Bld) 5.4 % Normal [facility] Comment on above: Order Comment: Speci men Type: BLOOD SPECIMENOrdering Facility: [facility] Address: [address] [place] [address] Performed By: #### 5 7021-8 ####[facility] LABORATORYCLIA [id number] [address] Erythrocyte distribution width (RBC) [Ratio] 16.3 % High 11.5-15.0 [facility] Comment on above: Order Comment: Speci men Type: BLOOD SPECIMENOrdering Facility: [facility] Address: [address] [place] [address] Performed By: #### 5 7021-8 ####[facility] LABORATORYCLIA [id number] [address] Hematocrit (Bld) [Volume fraction] 35.7 % Low 39.0-51.0 [facility] Comment on above: Order Comment: Speci men Type: BLOOD SPECIMENOrdering Facility: [facility] Address: [address] [place] [address] Performed By: #### 5 7021-8 ####[facility] LABORATORYCLIA [id number] [address] Hemoglobin (Bld) [Mass/Vol] 10.8 g/dL Low 13.0-17.0 [facility] Comment on above: Order Comment: Speci men Type: BLOOD SPECIMENOrdering Facility: [facility] Address: [address] [place] [address] Performed By: #### 5 7021-8 ####[facility]ORATORYCLIA [id number] [address] [place] IMMATURE GRAN % 0.4 % Normal [facility] Comment on above: Order Comment: Speci men Type: BLOOD SPECIMENOrdering Facility: [facility] Address: [address] [place] [address] Performed By: #### 5 7021-8 ####[facility] LABORATORYCLIA [id number] [address] STATES OF [facility] IMMATURE GRAN ABS 0.05 k/uL Normal <0.10 [facility] Comment on above: Order Comment: Speci men Type: BLOOD SPECIMENOrdering Facility: [facility] Address: [address] [place] [address] Performed By: #### 5 7021-8 ####[facility] LABORATORYCLIA [id number] [address] Lymphocytes (Bld) [#/Vol] 1.85 10*3/uL Normal 1.00-4.00 [facility] Comment on above: Order Comment: Speci men Type: BLOOD SPECIMENOrdering Facility: [facility] Address: [address] [place] [address] Performed By: #### 5 7021-8 ####[facility] LABORATORYCLIA [id number] [address] Lymphocytes/100 WBC (Bld) 14.7 % Normal [facility] Comment on above: Order Comment: Speci men Type: BLOOD SPECIMENOrdering Facility: [facility] Address: [address] [place] [address] Performed By: #### 5 7021-8 ####[facility] LABORATORYCLIA [id number] [address] MCH (RBC) [Entitic mass] 27.1 pg Normal 26.0-34.0 [facility] Comment on above: Order Comment: Speci men Type: BLOOD SPECIMENOrdering Facility: [facility] Address: [address] [place] [address] Performed By: #### 5 7021-8 ####[facility] LABORATORYCLIA [id number] [address] [facility] MCHC (RBC) [Mass/Vol] 30.3 g/dL Low 30.5-36.0 [facility] Comment on above: Order Comment: Speci men Type: BLOOD SPECIMENOrdering Facility: [facility] Address: [address] [place] [address] Performed By: #### 5 7021-8 ####[facility] LABORATORYCLIA [id number] [address] [place] MCV (RBC) [Entitic vol] 89.7 fL Normal 80.0-100.0 [facility] Comment on above: Order Comment: Speci men Type: BLOOD SPECIMENOrdering Facility: [facility] Address: [address] [place] [address] Performed By: #### 5 7021-8 ####[facility] LABORATORYCLIA [id number] [address] [place] Monocytes (Bld) [#/Vol] 0.87 10*3/uL High <0.87 [facility] Comment on above: Order Comment: Speci men Type: BLOOD SPECIMENOrdering Facility: [facility] Address: [address] [place] [address] Performed By: #### 5 7021-8 ####[facility] LABORATORYCLIA [id number] [address] Monocytes/100 WBC (Bld) 6.9 % Normal [facility] Comment on above: Order Comment: Speci men Type: BLOOD SPECIMENOrdering Facility: [facility] Address: [address] [place] [address] Performed By: #### 5 7021-8 ####[facility] LABORATORYCLIA [id number] [address] [place] Neutrophils (Bld) [#/Vol] 9.05 10*3/uL High 1.45-7.50 [facility] Comment on above: Order Comment: Speci men Type: BLOOD SPECIMENOrdering Facility: [facility] Address: [address] [place] [address] Performed By: #### 5 7021-8 ####[facility]ORATORYCLIA [id number] [address] Neutrophils/100 WBC (Bld) 72.2 % Normal [facility] Comment on above: Order Comment: Speci men Type: BLOOD SPECIMENOrdering Facility: [facility] Address: [address] [place] [address] Performed By: #### 5 7021-8 ####[facility] LABORATORYCLIA [id number] [address] [place] Nucleated RBC (Bld) [#/Vol] 10*3/uL Normal <0.01 [facility] Comment on above: Order Comment: Speci men Type: BLOOD SPECIMENOrdering Facility: [facility] Address: [address] [place] [address] Performed By: #### 5 7021-8 ####[facility] LABORATORYCLIA [id number] [address] Nucleated RBC/100 WBC (Bld) [Ratio] 0.0 /100 WBC Normal [facility] Comment on above: Order Comment: Speci men Type: BLOOD SPECIMENOrdering Facility: [facility] Address: [address] [place] [address] Performed By: #### 5 7021-8 ####[facility] LABORATORYCLIA [id number] [address] [place] Platelet mean volume (Bld) [Entitic vol] 9.9 fL Normal 9.0-12.7 [facility] Comment on above: Order Comment: Speci men Type: BLOOD SPECIMENOrdering Facility: [facility] Address: [address] [place] [address] Performed By: #### 5 7021-8 ####[facility]ORATORYCLIA [id number] [address] [place] Platelets (Bld) [#/Vol] 335 10*3/uL Normal 150-400 [facility] Comment on above: Order Comment: Speci men Type: BLOOD SPECIMENOrdering Facility: [facility] Address: [address] [place] [address] Performed By: #### 5 7021-8 ####[facility] LABORATORYCLIA [id number] [address] [place] RBC (Bld) [#/Vol] 3.98 10*6/uL Low 4.20-6.00 [facility] Comment on above: Order Comment: Speci men Type: BLOOD SPECIMENOrdering Facility: [facility] Address: [address] [place] [address] Performed By: #### 5 7021-8 ####[facility] LABORATORYCLIA [id number] [address] [facility] WBC (Bld) [#/Vol] 12.55 10*3/uL High 3.70-11.00 [facility] Comment on above: Order Comment: Speci men Type: BLOOD SPECIMENOrdering Facility: [facility] Address: [address] [place] [address] Performed By: #### 5 7021-8 ####[facility] LABORATORYCLIA [id number] [address] [facility] CK CREATINE KINASEon 022 CK [Catalytic activity/Vol] 72 U/L Normal 51-298 [facility] Comment on above: Order Comment: Speci men Type: BLOOD SPECIMENOrdering Facility: [facility] Address: [address] [place] [address] Performed By: #### C Skip, 54076-9 ####[facility] LABORATORYCLIA [id number] [address] [facility] CONSULT PROGon 07-08-2021 CONSULT PROG Normal [facility] CONSULT PROG Normal [facility] CSF MANUAL DIFFon 07-08-2021 DIF TTL, CSF 3 cells counted Normal [facility] Comment on above: Order Comment: Speci men Type: CEREBROSPINAL FLUIDOrdering Facility: [facility] Address: [address] [place] [address] Performed By: #### 3 4563-7, [id number] ####[facility] LABORATORYCLIA [id number] [place] [address] [place] LYMPH%, CSF 33 % Low 50-90 [facility] Comment on above: Order Comment: Speci men Type: CEREBROSPINAL FLUIDOrdering Facility: [facility] Address: [address] [place] [address] Performed By: #### 3 4563-7, [id number] ####[facility] LABORATORYCLIA [id number] [place] [address] [place] MONO%, CSF 67 % High 10-50 [facility] Comment on above: Order Comment: Speci men Type: CEREBROSPINAL FLUIDOrdering Facility: [facility] Address: [address] [place] [address] Performed By: #### 3 4563-7, [id number] ####[facility] LABORATORYCLIA [id number] [place] [address] [place] ABD/PEL W IVCONon 022 CT ABD/PEL W IVCON Normal [facility] CT BRAIN WO IVCONon 07-09-[address] BRAIN WO IVCON Normal [facility] CT BRAIN WO IVCON Normal [facility] CT CHEST W IVCON PEon 2021 CT CHEST W IVCON PE Normal [facility] Cell count panel (CSF)on Clarity (CSF) Clear Normal Clear [facility] Comment on above: Order Comment: Speci men Type: CEREBROSPINAL FLUIDOrdering Facility: [facility] Address: [address] [address] Performed By: #### 3 4563-7, [id number] ####[facility]ORATORYCLIA [id number] [address] [place] Clarity (Unsp spec) Clear Normal Clear [facility] Comment on above: Order Comment: Speci men Type: CEREBROSPINAL FLUIDOrdering Facility: [facility] Address: [address] [place] [address] Performed By: #### 3 4563-7, [id number] ####[facility]ORATORYCLIA [id number] [address] Color (CSF) Colorless Normal Colorless [facility] Comment on above: Order Comment: Speci men Type: CEREBROSPINAL FLUIDOrdering Facility: [facility] Address: [address] [place] [address] Performed By: #### 3 4563-7, [id number] ####[facility]ORATORYCLIA [id number] [address] Color (Spun CSF) Colorless Normal Colorless [facility] Comment on above: Order Comment: Speci men Type: CEREBROSPINAL FLUIDOrdering Facility: [facility] Address: [address] [place] [address] Performed By: #### 3 4563-7, [id number] ####[facility]ORATORYCLIA [id number] [address] CSF TUBE [employer] Normal [facility] Comment on above: Order Comment: Speci men Type: CEREBROSPINAL FLUIDOrdering Facility: [facility] Address: [address] [place] [address] Performed By: #### 3 4563-7, [id number] ####[facility] LABORATORYCLIA [id number] [address] [facility] RBC Manual cnt (CSF) [#/Vol] 94 cells/uL High 0-5 [facility] Comment on above: Order Comment: Speci men Type: CEREBROSPINAL FLUIDOrdering Facility: [facility] Address: [address] [place] [address] Performed By: #### 3 4563-7, [id number] ####[facility] LABORATORYCLIA [id number] [address] WBC Manual cnt (CSF) [#/Vol] 1 cells/uL Normal 0-5 [facility] Comment on above: Order Comment: Speci men Type: CEREBROSPINAL FLUIDOrdering Facility: [facility] Address: [address] [place] [address] Performed By: #### 3 4563-7, [id number] ####[facility] LABORATORYCLIA [id number] [address] [facility] Comprehensive metabolic 2000 panelon 07-08-2021 Albumin [Mass/Vol] 3.6 g/dL Low 3.9-4.9 [facility] Comment on above: Order Comment: Speci men Type: BLOOD SPECIMENOrdering Facility: [facility] Address: [address] [place] [address] Performed By: #### Eileen Valdivia, 06541-0 ####[facility] LABORATORYCLIA [id number] [address] [place] ALP [Catalytic activity/Vol] 125 U/L High 38-113 [facility] Comment on above: Order Comment: Speci men Type: BLOOD SPECIMENOrdering Facility: [facility] Address: [address] [place] [address] Performed By: #### Eileen Valdivia, 65372-5 ####[facility] LABORATORYCLIA [id number] [address] ALT With P-5'-P [Catalytic activity/Vol] 24 U/L Normal 10-54 [facility] Comment on above: Order Comment: Speci men Type: BLOOD SPECIMENOrdering Facility: [facility] Address: [address] [place] [address] Performed By: #### Eileen Valdivia, 38168-3 ####[facility] LABORATORYCLIA [id number] [address] [place] Anion gap [Moles/Vol] 16 mmol/L Normal 9-18 [facility] Comment on above: Order Comment: Speci men Type: BLOOD SPECIMENOrdering Facility: [facility] Address: [address] [place] [address] Performed By: #### Eileen Valdivia, 34723-4 ####[facility]ORATORYCLIA [id number] [place] [address] [place] AST With P-5'-P [Catalytic activity/Vol] 21 U/L Normal 14-40 [facility] Comment on above: Order Comment: Speci men Type: BLOOD SPECIMENOrdering Facility: [facility] Address: [address] [place] [address] Performed By: #### Eileen Valdivia, 62597-4 ####[facility]ORATORYCLIA [id number] [place] [address] [place] Bilirubin [Mass/Vol] 0.3 mg/dL Normal 0.2-1.3 [facility] Comment on above: Order Comment: Speci men Type: BLOOD SPECIMENOrdering Facility: [facility] Address: [address] [place] [address] Performed By: #### Eileen Valdivia, 51923-9 ####[facility] LABORATORYCLIA [id number] [address] [place] Calcium [Mass/Vol] 8.9 mg/dL Normal 8.5-10.2 [facility] Comment on above: Order Comment: Speci men Type: BLOOD SPECIMENOrdering Facility: [facility] Address: [address] [place] [address] Performed By: #### Eileen Valdivia, 30674-7 ####[facility]ORATORYCLIA [id number] [place] [address] [place] Chloride [Moles/Vol] 96 mmol/L Low 97-105 [facility] Comment on above: Order Comment: Speci men Type: BLOOD SPECIMENOrdering Facility: [facility] Address: [address] [place] [address] Performed By: #### Eileen Valdivia, 95398-6 ####[facility]ORATORYCLIA [id number] [place] [address] [place] CO2 [Moles/Vol] 27 mmol/L Normal 22-30 [facility] Comment on above: Order Comment: Speci men Type: BLOOD SPECIMENOrdering Facility: [facility] Address: [address] [place] [id number] Performed By: #### C K, 98505-8 ####[facility] LABORATORYCLIA [id number] [place] [id number] [place] Creatinine [Mass/Vol] 0.68 mg/dL Low 0.73-1.22 [facility] Comment on above: Order Comment: Speci men Type: BLOOD SPECIMENOrdering Facility: [facility] Address: [address] [place] [address] Performed By: #### C K, 31932-5 ####[facility] LABORATORYCLIA [id number] [place] [id number] [facility] [place] ESTIMATED GLOMERULAR FILTRATION RATE 101 mL/min/1.73m??? Normal >=60 [facility] Comment on above: Order Comment: Shira feldman Type: BLOOD SPECIMENOrdering Facility: [facility] Address: [address] [place] [address] Result Comment: Luzmaria mated Glomerular Filtration Rate [...] accurately reflect actual GFR. Performed By: #### C K, 52629-7 ####[facility] LABORATORYCLIA [id number] [place] [id number] [place] Glucose [Mass/Vol] 130 mg/dL High 74-99 [facility] Comment on above: Order Comment: Shira francia Type: BLOOD SPECIMENOrdering Facility: [facility] Address: [address] [place] [address] Result Comment: The [place] Diabetes Association (ADA) provides guidance for cutoff [...] Standards of Medical Care in Diabetes 2016, [place] [employer]. Diabetes Care. 2016.39(Suppl 1). Performed By: #### Eileen Valdivia, 92707-6 ####[facility] LABORATORYCLIA [id number] [place] [address] [place] Potassium [Moles/Vol] 3.9 mmol/L Normal 3.7-5.1 [facility] Comment on above: Order Comment: Speci men Type: BLOOD SPECIMENOrdering Facility: [facility] Address: [address] [place] [address] Performed By: #### Eileen Valdivia, 91811-3 ####[facility] LABORATORYCLIA [id number] [place] [address] [place] Protein [Mass/Vol] 7.0 g/dL Normal 6.3-8.0 [facility] Comment on above: Order Comment: Speci men Type: BLOOD SPECIMENOrdering Facility: [facility] Address: [address] [place] [address] Performed By: #### Eileen Valdivia, 22401-4 ####[facility] LABORATORYCLIA [id number] [address] [place] Sodium [Moles/Vol] 139 mmol/L Normal 136-144 [facility] Comment on above: Order Comment: Speci men Type: BLOOD SPECIMENOrdering Facility: [facility] Address: [address] [place] [address] Performed By: #### Eileen Valdivia, 53442-7 ####[facility] LABORATORYCLIA [id number] [place] [address] [place] Urea nitrogen [Mass/Vol] 16 mg/dL Normal 9-24 [facility] Comment on above: Order Comment: Speci men Type: BLOOD SPECIMENOrdering Facility: [facility] Address: [address] [place] [address] Performed By: #### C K, 58736-6 ####[facility] LABORATORYIA [id number] [address] ED NOTEon 07-08-2021 ED NOTE HNO ID: [id number] Author: Lenora James RN Service: Emergency Medicine Author Type: Registered Nurse Type: ED Notes Filed: 07/08/2021 5:03 PM Note Text: Pt to OR with surgical team [facility] ED NOTE HNO ID: [id number] Author: Lenora James RN Service: Emergency Medicine Author Type: Registered Nurse Type: ED Notes Filed: 07/08/2021 4:50 PM Note Text: OR team to get pt [facility] ED NOTE HNO ID: [id number] Author: Lenora James RN Service: Emergency Medicine Author Type: Registered Nurse Type: ED Notes Filed: 07/08/2021 4:50 PM Note Text: [facility] ED NOTE HNO ID: [id number] Author: Lenora James RN Service: Emergency Medicine Author Type: Registered Nurse Type: ED Notes Filed: 07/08/2021 4:50 PM Note Text: Spoke with presurg; pt to go to OR now [facility] ED NOTE HNO ID: [id number] Author: Lenora James RN Service: Emergency Medicine Author Type: Registered Nurse Type: ED Notes Filed: 07/08/2021 4:12 PM Note Text: Neurosurgery at beside [facility] ED NOTE HNO ID: [id number] Author: Lenora James RN Service: Emergency Medicine Author Type: Registered Nurse Type: ED Notes Filed: 07/08/2021 2:35 PM Note Text: respiratory aware of pt breathing treatments [facility] ED NOTE HNO ID: [id number] Author: Lisa Woo RN Service: ? Author Type: Registered Nurse Type: ED Notes Filed: 07/08/2021 2:20 PM Note Text: Xray notified pt is ready. [facility] ED NOTE HNO ID: [id number] Author: Lenora Erika, RN Service: Emergency Medicine Author Type: Registered Nurse Type: ED Notes Filed: 07/08/2021 12:14 PM Note Text: CT notified regarding imaging orders placed [facility] ED NOTE Normal [facility] ED PROV NOTEon 07-08-2021 ED PROV NOTE Normal [facility] Glucose CSF-mCncon 2 Glucose (CSF) [Mass/Vol] 88 mg/dL High 40-70 [facility] Comment on above: Order Comment: Shira feldman Type: CEREBROSPINAL FLUIDOrdering Facility: [facility] Address: [address] [place] [address] Result Comment: Lumb ar CSF glucose values of healthy patients are approximately 60% of the plasma values and must always be compared with a concurrently measured plasma value for adequate clinical interpretation.References: 1. Glucose HK (GLUC3) [package insert V 12.0 [place]]. [employer], [place], [place]. September 2015. 2. Michelle Moore, Loki HGarfield (2015). Chapter 7: Glucose and Lactate. Marianela Alcocer al.(eds.), Cerebrospinal Fluid in Clinical Neurology. [place]: [employer]. Performed By: #### 2 880-3, 2342-4 ####[facility] LABORATORYCLIA [id number] [address] STATES OF [facility] HIGH SENSITIVITY TROPONIN To n 07-08-2021 HIGH SENSITIVITY TAMIKO 27 ng/L High <12 [facility] Comment on above: Order Comment: Shira feldman Type: BLOOD SPECIMENOrdering Facility: [facility] Address: [address] [place] [address] Result Comment: When assessing risk for acute [...] day MACE. Performed By: #### H STNT ####[facility] LABORATORYCLIA [id number] [address] HIGH SENSITIVITY TAMIKO 36 ng/L High <12 [facility] Comment on above: Order Comment: Speci francia Type: BLOOD SPECIMENOrdering Facility: [facility] Address: [address] [place] [address] [place] [address] Result Comment: When assessing risk for acute [...] day MACE. Performed By: #### H STNT ####[facility] LABORATORYCLIA [id number] [address] STATES OF [facility] HISTORY PHYSICALon 2 HISTORY PHYSICAL [facility] NURSING PROGon 07-08-2021 NURSING PROG Normal [facility] OPERATIVE NOon 07-08-2021 OPERATIVE NO Normal [facility] Prot CSF-mCncon 07-08-2021 Protein (CSF) [Mass/Vol] 33 mg/dL Normal 15-45 [facility] Comment on above: Order Comment: Shira feldman Type: CEREBROSPINAL FLUIDOrdering Facility: [facility] Address: [address] [place], [place] [address] [address] Performed By: #### 2 880-3, 2342-4 ####[facility] LABORATORYCLIA [id number] [address] [place] SARS-CoV-2 RNA Resp Ql MEGAN+p robeon 07-08-2021 SARS-CoV-2 (COVID-19) RNA MEGAN+probe Ql (Resp) COVID 19 RESULT: SARS-CoV-2 (Agent of COVID-19) Not Detected by RT-PCR or equivalent method. This test has been authorized by FDA under an Emergency Use Authorization (EUA). [facility] Comment on above: Performed By: #### 9 4500-6 ####[facility] LABORATORYCLIA [id number] [address] [place] STAPH AUREUS PCRon 2 S. aureus and MRSA panel MEGAN+probe (Nose) Normal Negative [facility] Comment on above: Order Comment: Speci men Type: SWAB OF INTERNAL NOSEOrdering Facility: [facility] Address: [address] [place] [address] Result Comment: Nega tive for Staphylococcus aureus by PCR.Negative for MRSA by PCR Performed By: #### S APCR ####[facility] LABORATORYCLIA [id number] [address] Urinalysis complete panel (U )on 07-08-2021 Bacteria LM.HPF (Urine sed) [#/Area] Few Abnormal None Seen [facility] Comment on above: Order Comment: Speci men Type: URINE SPECIMENOrdering Facility: [facility] Address: [address] [place] [address] Performed By: #### 2 4356-8 ####[facility] LABORATORYCLIA [id number] [place] [address] [place] Bilirubin Ql (U) Negative Normal Negative [facility] Comment on above: Order Comment: Speci men Type: URINE SPECIMENOrdering Facility: [facility] Address: [address] [place] [address] Performed By: #### 2 4356-8 ####[facility] LABORATORYCLIA [id number] [address] [place] Clarity (Unsp spec) Turbid Abnormal Clear [facility] Comment on above: Order Comment: Speci men Type: URINE SPECIMENOrdering Facility: [facility] Address: [address] [place] [address] Performed By: #### 2 4356-8 ####[facility] LABORATORYCLIA [id number] [address] STATES [facility] Color (U) Light Yellow Normal yellow [facility] Comment on above: Order Comment: Speci men Type: URINE SPECIMENOrdering Facility: [facility] Address: [address] [place] [address] Performed By: #### 2 4356-8 ####[facility]ATORYCLIA [id number] [address] Glucose Test strip (U) [Mass/Vol] Negative Normal Negative [facility] Comment on above: Order Comment: Speci men Type: URINE SPECIMENOrdering Facility: [facility] Address: [address] [place] [address] Performed By: #### 2 4356-8 ####[facility] LABORATORYCLIA [id number] [address] Hemoglobin Ql (U) Negative Normal Negative [facility] Comment on above: Order Comment: Speci men Type: URINE SPECIMENOrdering Facility: [facility] Address: [address] [place] [address] Performed By: #### 2 4356-8 ####[facility] LABORATORYCLIA [id number] [address] Hyaline casts (Urine sed) [#/Area] 1-3 /LPF Abnormal 0 /LPF [facility] Comment on above: Order Comment: Speci men Type: URINE SPECIMENOrdering Facility: [facility] Address: [address] [place] [address] Performed By: #### 2 4356-8 ####[facility] LABORATORYCLIA [id number] [address] Ketones Ql (U) Negative Normal Negative [facility] Comment on above: Order Comment: Speci men Type: URINE SPECIMENOrdering Facility: [facility] Address: [address] [place] [address] Performed By: #### 2 4356-8 ####[facility] LABORATORYCLIA [id number] [address] Leukocyte esterase Test strip Ql (U) Negative Normal Negative [facility] Comment on above: Order Comment: Speci men Type: URINE SPECIMENOrdering Facility: [facility] Address: [address] [place] [address] Performed By: #### 2 4356-8 ####[facility] LABORATORYCLIA [id number] [address] Nitrite Ql (U) Negative Normal Negative [facility] Comment on above: Order Comment: Speci men Type: URINE SPECIMENOrdering Facility: [facility] Address: [address] [place] [address] Performed By: #### 2 4356-8 ####[facility] LABORATORYCLIA [id number] [address] pH (U) 5.0 [pH] Normal 5.0-8.0 [facility] Comment on above: Order Comment: Speci men Type: URINE SPECIMENOrdering Facility: [facility] Address: [address] [place] [address] Performed By: #### 2 4356-8 ####[facility] LABORATORYCLIA [id number] [address] Protein (U) [Mass/Vol] Negative Normal Negative [facility] Comment on above: Order Comment: Speci men Type: URINE SPECIMENOrdering Facility: [facility] Address: [address] [place] [address] Performed By: #### 2 4356-8 ####[facility] LABORATORYCLIA [id number] [address] RBC LM.HPF (Urine sed) [#/Area] 11-25 /HPF Abnormal 0-3 /HPF [facility] Comment on above: Order Comment: Speci men Type: URINE SPECIMENOrdering Facility: [facility] Address: [address] [place] [address] Performed By: #### 2 4356-8 ####[facility] LABORATORYCLIA [id number] [address] Specific gravity (U) [Rel density] 1.018 Normal 1.005-1.030 [facility] Comment on above: Order Comment: Speci men Type: URINE SPECIMENOrdering Facility: [facility] Address: [address] [place] [address] Performed By: #### 2 4356-8 ####[facility]ITALCLIA [id number] [address] Urobilinogen Ql (U) Normal Normal Negative [facility] Comment on above: Order Comment: Speci men Type: URINE SPECIMENOrdering Facility: [facility] Address: [address] [place] [address] Performed By: #### 2 4356-8 ####[facility] LABORATORYCLIA [id number] [address] WBC LM.HPF (Urine sed) [#/Area] /[HPF] Abnormal 0-5 /HPF [facility] Comment on above: Order Comment: Speci men Type: URINE SPECIMENOrdering Facility: [facility] Address: [address] [place] [address] Performed By: #### 2 4356-8 ####[facility] LABORATORYCLIA [id number] [address] Vancomycin random [Mass/Vol] on 07-08-2021 Vancomycin [Mass/Vol] 31.0 ug/mL High 10.0-20.0 [facility] Comment on above: Order Comment: Speci men Type: BLOOD SPECIMENOrdering Facility: [facility] Address: [address] [place] [address] Result Comment: Refe rence ranges and high/low indicator flags are provided as general guidelines only. The treating physician must determine appropriate target levels/dosing based on the specific clinical situation. Performed By: #### 4 091-5 ####[facility] LABORATORYCLIA [id number] [address] OF [facility] XR ABD 2V SUPINE W UPR/DECUB /CTLon 07-08-2021 XR ABD 2V SUPINE W UPR/DECUB/CTL Normal [facility] XR CHEST 1V FRONTALon 2021 XR CHEST 1V FRONTAL [facility] XR CHEST 1V FRONTAL [facility] XR NECK SOFT TISSUE 2V AP/LA Ton 07-08-2021 XR NECK SOFT TISSUE 2V AP/LAT Normal [facility] XR SKULL 2V AP/LATon 2 022 XR SKULL 2V AP/LAT Normal [facility] HISTORY PHYSICALon 2 HISTORY PHYSICAL HNO ID: [id number] Author: Amy Beltran MD Service: ? Author Type: Physician Type: HANDP Filed: 06/30/2021 6:42 PM Note Text: Connected Care Unit History and Physical Facility: [facility] [place] Level of Care: Skilled Admission Date: June [...] regarding the above plan. Total time spent [id number] and/or counseling and coordinating care on the skilled care unit for patient was approximately 45 minutes SUBJECTIVE (HISTORY) Chief Complaint: Confusion, infection, blood clot. Andrew Sifuentes is being seen today for long term facility (SNF) admission AND management of weakness, tube feed, infected retroperitoneal infection and seizure. HPI: This is a 71 year old male who presents from [facility] with primary admitting diagnosis of Seizure, [...] CT brain concerning for hydrocephalus. 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 Normal [facility] Basic metabolic 2000 panelon 06-28-2021 Anion gap [Moles/Vol] 7 mmol/L Low 9-18 [facility] Comment on above: Order Comment: Shira feldman Type: BLOOD SPECIMENOrdering Facility: [facility] Address: [address] [place] [address] Performed By: #### 2 4320-06, ####[facility] LABORATORYCLIA [id number] [place] [address] [place] Calcium [Mass/Vol] 8.8 mg/dL Normal 8.5-10.2 [facility] Comment on above: Order Comment: Shira feldman Type: BLOOD SPECIMENOrdering Facility: [facility] Address: [address] [place] [address] Performed By: #### 2 4320-06, ####[facility] LABORATORYCLIA [id number] [place] [address] [place] Chloride [Moles/Vol] 103 mmol/L Normal 97-105 [facility] Comment on above: Order Comment: [facility] Type: BLOOD SPECIMENOrdering Facility: [facility] Address: [address] [place] [address] Performed By: #### 2 4320-06, ####[facility] LABORATORYCLIA [id number] [place] [address] [place] CO2 [Moles/Vol] 28 mmol/L Normal 22-30 [facility] Comment on above: Order Comment: Speci men Type: BLOOD SPECIMENOrdering Facility: [facility] Address: [address] [place] [address] Performed By: #### 2 432-, ####[facility] LABORATORYCLIA [id number] [place] [address] [place] Creatinine [Mass/Vol] 0.57 mg/dL Low 0.73-1.22 [facility] Comment on above: Order Comment: Speci men Type: BLOOD SPECIMENOrdering Facility: [facility] Address: [address] [place] [address] Performed By: #### 2 43205-08, ####[facility] LABORATORYCLIA [id number] [address] [place] GFR/1.73 sq M.predicted MDRD (S/P/Bld) [Vol rate/Area] mL/min/{1.73_m2} Normal [facility] Comment on above: [facility]: [facility] Type: BLOOD SPECIMENOrdering Facility: [facility] Address: [address] [place] [address] Result Comment: >60e GFR (Estimated GFR) Units [...] actual GFR. Performed By: #### 2 43205-08, ####[facility] LABORATORYCLIA [id number] [place] [id number] [place] Glucose [Mass/Vol] 120 mg/dL High 74-99 [facility] Comment on above: Order Comment: Speci men Type: BLOOD SPECIMENOrdering Facility: [facility] Address: [address] [place], [place] [address] Result Comment: The [place] Diabetes Association (ADA) provides guidance for cutoff [...] Standards of Medical Care in Diabetes 2016, [place] [employer]. Diabetes Care. 2016.39(Suppl 1). Performed By: #### 2 4320-, ####[facility] LABORATORYCLIA [id number] [place] [address] [place] Potassium [Moles/Vol] 3.8 mmol/L Normal 3.7-5.1 [facility] Comment on above: Order Comment: [facility]i [facility] Type: BLOOD SPECIMENOrdering Facility: [facility] Address: [address] [place] [address] [place], [place] [address] Performed By: #### 2 4320-06, ####[facility] LABORATORYCLIA [id number] [place] [address] [place] Sodium [Moles/Vol] 138 mmol/L Normal 136-144 [facility] Comment on above: Order Comment: Speci men Type: BLOOD SPECIMENOrdering Facility: [facility] Address: [address] [place] [address] Performed By: #### 2 4320-06, ####[facility] LABORATORYCLIA [id number] [place] [address] [place] Urea nitrogen [Mass/Vol] 24 mg/dL Normal 9-24 [facility] Comment on above: Order Comment: Speci men Type: BLOOD SPECIMENOrdering Facility: [facility] Address: [address] [place] [place] [address] Performed By: #### 2 4321-2, 98047-6 ####[facility] LABORATORYCLIA [id number] [address] CASE MANAGEMon 06-28-2021 CASE MANAGEM Normal [facility] CBC panel Auto (Bld)on 06-28 Erythrocyte distribution width (RBC) [Ratio] 15.6 % High 11.5-15.0 [facility] Comment on above: Order Comment: Speci men Type: BLOOD SPECIMENOrdering Facility: [facility] Address: [address] [place] [address] Performed By: #### 5 8410-2 ####[facility] LABORATORYCLIA [id number] [address] Hematocrit (Bld) [Volume fraction] 30.5 % Low 39.0-51.0 [facility] Comment on above: Order Comment: Speci men Type: BLOOD SPECIMENOrdering Facility: [facility] Address: [address] [place] [address] Performed By: #### 5 8410-2 ####[facility] LABORATORYCLIA [id number] [address] Hemoglobin (Bld) [Mass/Vol] 9.4 g/dL Low 13.0-17.0 [facility] Comment on above: Order Comment: Speci men Type: BLOOD SPECIMENOrdering Facility: [facility] Address: [address] [place] [address] Performed By: #### 5 8410-2 ####[facility] LABORATORYCLIA [id number] [address] STATES [facility] MCH (RBC) [Entitic mass] 27.8 pg Normal 26.0-34.0 [facility] Comment on above: Order Comment: Speci men Type: BLOOD SPECIMENOrdering Facility: [facility] Address: [address] [address] Performed By: #### 5 8410-2 ####[facility] LABORATORYCLIA [id number] [address] STATES OF [facility] MCHC (RBC) [Mass/Vol] 30.8 g/dL Normal 30.5-36.0 [facility] Comment on above: Order Comment: Speci men Type: BLOOD SPECIMENOrdering Facility: [facility] Address: [address] [place] [address] Performed By: #### 5 8410-2 ####[facility] LABORATORYCLIA [id number] [address] [place] MCV (RBC) [Entitic vol] 90.2 fL Normal 80.0-100.0 [facility] Comment on above: Order Comment: Speci men Type: BLOOD SPECIMENOrdering Facility: [facility] Address: [address] [place] [address] Performed By: #### 5 8410-2 ####[facility] LABORATORYCLIA [id number] [address] [place] Nucleated RBC (Bld) [#/Vol] 10*3/uL Normal <0.01 [facility] Comment on above: Order Comment: Speci men Type: BLOOD SPECIMENOrdering Facility: [facility] Address: [address] [place] [address] Performed By: #### 5 8410-2 ####[facility] LABORATORYCLIA [id number] [address] [place] Platelet mean volume (Bld) [Entitic vol] 9.9 fL Normal 9.0-12.7 [facility] Comment on above: Order Comment: Speci men Type: BLOOD SPECIMENOrdering Facility: [facility] Address: [address] [place] [address] Performed By: #### 5 8410-2 ####[facility] LABORATORYCLIA [id number] [address] [place] Platelets (Bld) [#/Vol] 333 10*3/uL Normal 150-400 [facility] Comment on above: Order Comment: Speci men Type: BLOOD SPECIMENOrdering Facility: [facility] Address: [address] [place] [address] Performed By: #### 5 8410-2 ####[facility] LABORATORYCLIA [id number] [address] RBC (Bld) [#/Vol] 3.38 10*6/uL Low 4.20-6.00 [facility] Comment on above: Order Comment: Speci men Type: BLOOD SPECIMENOrdering Facility: [facility] Address: [address] [place] [address] Performed By: #### 5 8410-2 ####[facility] LABORATORYCLIA [id number] [address] WBC (Bld) [#/Vol] 9.71 10*3/uL Normal 3.70-11.00 [facility] Comment on above: Order Comment: Speci men Type: BLOOD SPECIMENOrdering Facility: [facility] Address: [address] [place] [address] Performed By: #### 5 8410-2 ####[facility] LABORATORYCLIA [id number] [address] [facility] CNDSon 06-28-2021 CNDS Normal [facility] CONSULT PROGon 06-28-2021 CONSULT PROG Normal [facility] Magnesium SerPl-mCncon 06-28 Magnesium [Mass/Vol] 2.2 mg/dL Normal 1.7-2.3 [facility] Comment on above: Order Comment: Speci men Type: BLOOD SPECIMENOrdering Facility: [facility] Address: [address] [place] [address] Performed By: #### 2 4321-2, 75783-0 ####[facility] LABORATORYCLIA [id number] [address] Vancomycin random [Mass/Vol] on 06-28-2021 Vancomycin [Mass/Vol] 23.0 ug/mL High 10.0-20.0 [facility] Comment on above: Order Comment: Speci men Type: BLOOD SPECIMENOrdering Facility: [facility] Address: [address] [place] [address] Result Comment: Refe rence ranges and high/low indicator flags are provided as general guidelines only. The treating physician must determine appropriate target levels/dosing based on the specific clinical situation. Performed By: #### 4 091-5 ####[facility] LABORATORYCLIA [id number] [place] [address] [place] ALLIED HEALTHon 06-27-2021 ALLIED HEALTH Normal [facility] Basic metabolic 2000 panelon 06-27-2021 Anion gap [Moles/Vol] 10 mmol/L Normal 9-18 [facility] Comment on above: Order Comment: Speci men Type: BLOOD SPECIMENOrdering Facility: [facility] Address: [address] [place] [address] Performed By: #### 2 4321-2, ####[facility] LABORATORYCLIA [id number] [place] [address] [place] Calcium [Mass/Vol] 8.8 mg/dL Normal 8.5-10.2 [facility] Comment on above: Order Comment: Speci men Type: BLOOD SPECIMENOrdering Facility: [facility] Address: [address] [place] [address] Performed By: #### 2 4321-2, ####[facility] LABORATORYCLIA [id number] [place] [address] [place] Chloride [Moles/Vol] 104 mmol/L Normal 97-105 [facility] Comment on above: Order Comment: Speci men Type: BLOOD SPECIMENOrdering Facility: [facility] Address: [address] [place] [address] Performed By: #### 2 4321-2, ####[facility]ORATORYCLIA [id number] [place] [address] [place] CO2 [Moles/Vol] 26 mmol/L Normal 22-30 [facility] Comment on above: Order Comment: Speci men Type: BLOOD SPECIMENOrdering Facility: [facility] Address: [address] [address] Performed By: #### 2 432-, ####[facility] LABORATORYCLIA [id number] [place] [address] [place] Creatinine [Mass/Vol] 0.57 mg/dL Low 0.73-1.22 [facility] Comment on above: Order Comment: Speci men Type: BLOOD SPECIMENOrdering Facility: [facility] Address: [address] [place] [address] Performed By: #### 2 43205-08, ####[facility] LABORATORYCLIA [id number] [address] [place] GFR/1.73 sq M.predicted MDRD (S/P/Bld) [Vol rate/Area] mL/min/{1.73_m2} Normal [facility] Comment on above: Order Comment: Johncara feldman Type: BLOOD SPECIMENOrdering Facility: [facility] Address: [address] [place] [address] Result Comment: >60e GFR (Estimated GFR) Units [...] reflect actual GFR. Performed By: #### 2 4321-, ####[facility] LABORATORYCLIA [id number] [address] STATES OF [facility] Glucose [Mass/Vol] 133 mg/dL High 74-99 [facility] Comment on above: Order Comment: Johni francia Type: BLOOD SPECIMENOrdering Facility: [facility] Address: [address] [address] Result Comment: The [place] [employer] (ADA) provides guidance for cutoff [...] Standards of Medical Care in Diabetes 2016, [place] [employer]. Diabetes Care. 2016.39(Suppl 1). Performed By: #### 2 4320-06, ####[facility] LABORATORYCLIA [id number] [place] [address] [place] Potassium [Moles/Vol] 4.2 mmol/L Normal 3.7-5.1 [facility] Comment on above: Order Comment: Speci francia Type: BLOOD SPECIMENOrdering Facility: [facility] Address: [address] [address] Performed By: #### 2 ####[facility] LABORATORYCLIA [id number] [place] [address] [place] Sodium [Moles/Vol] 140 mmol/L Normal 136-144 [facility] Comment on above: Order Comment: Speci men Type: BLOOD SPECIMENOrdering Facility: [facility] Address: [address] [address] Performed By: #### 2 4320-06, ####[facility] LABORATORYCLIA [id number] [place] [address] [place] Urea nitrogen [Mass/Vol] 24 mg/dL Normal 9-24 [facility] Comment on above: Order Comment: Shira men Type: BLOOD SPECIMENOrdering Facility: [facility] Address: [address] [address] Performed By: #### 2 4320-06, ####[facility] LABORATORYCLIA [id number] [address] STATES [place] CASE MANAGEMon 06-27-2021 CASE MANAGEM Normal [facility] CBC panel Auto (Bld)on 06-27 Erythrocyte distribution width (RBC) [Ratio] 15.8 % High 11.5-15.0 [facility] Comment on above: Order Comment: Speci men Type: BLOOD SPECIMENOrdering Facility: [facility] Address: [address] [place] [address] Performed By: #### 5 8410-2 ####[facility] LABORATORYCLIA [id number] [address] Hematocrit (Bld) [Volume fraction] 31.4 % Low 39.0-51.0 [facility] Comment on above: Order Comment: Speci men Type: BLOOD SPECIMENOrdering Facility: [facility] Address: [address] [place] [address] Performed By: #### 5 8410-2 ####[facility] LABORATORYCLIA [id number] [address] Hemoglobin (Bld) [Mass/Vol] 9.3 g/dL Low 13.0-17.0 [facility] Comment on above: Order Comment: Speci men Type: BLOOD SPECIMENOrdering Facility: [facility] Address: [address] [place] [address] Performed By: #### 5 8410-2 ####[facility] LABORATORYCLIA [id number] [address] STATES [facility] MCH (RBC) [Entitic mass] 27.0 pg Normal 26.0-34.0 [facility] Comment on above: Order Comment: Speci men Type: BLOOD SPECIMENOrdering Facility: [facility] Address: [address] [place] [address] Performed By: #### 5 8410-2 ####[facility] LABORATORYCLIA [id number] [place] [address] [place] MCHC (RBC) [Mass/Vol] 29.6 g/dL Low 30.5-36.0 [facility] Comment on above: Order Comment: Speci men Type: BLOOD SPECIMENOrdering Facility: [facility] Address: [address] [place] [address] Performed By: #### 5 8410-2 ####[facility] LABORATORYCLIA [id number] [place] [address] [place] MCV (RBC) [Entitic vol] 91.3 fL Normal 80.0-100.0 [facility] Comment on above: Order Comment: Speci men Type: BLOOD SPECIMENOrdering Facility: [facility] Address: [address] [place] [address] Performed By: #### 5 8410-2 ####[facility] LABORATORYCLIA [id number] [address] [place] Nucleated RBC (Bld) [#/Vol] 10*3/uL Normal <0.01 [facility] Comment on above: Order Comment: Speci men Type: BLOOD SPECIMENOrdering Facility: [facility] Address: [address] [place] [address] Performed By: #### 5 8410-2 ####[facility] LABORATORYCLIA [id number] [address] [place] Platelet mean volume (Bld) [Entitic vol] 10.3 fL Normal 9.0-12.7 [facility] Comment on above: Order Comment: Speci men Type: BLOOD SPECIMENOrdering Facility: [facility] Address: [address] [place] [address] Performed By: #### 5 8410-2 ####[facility] LABORATORYCLIA [id number] [address] [place] Platelets (Bld) [#/Vol] 359 10*3/uL Normal 150-400 [facility] Comment on above: Order Comment: Speci men Type: BLOOD SPECIMENOrdering Facility: [facility] Address: [address] [place] [address] Performed By: #### 5 8410-2 ####[facility] LABORATORYCLIA [id number] [address] STATES OF [facility] RBC (Bld) [#/Vol] 3.44 10*6/uL Low 4.20-6.00 [facility] Comment on above: Order Comment: Speci men Type: BLOOD SPECIMENOrdering Facility: [facility] Address: [address] [place] [address] Performed By: #### 5 8410-2 ####[facility] LABORATORYCLIA [id number] [address] STATES [place] [facility] WBC (Bld) [#/Vol] 10.73 10*3/uL Normal 3.70-11.00 [facility] Comment on above: Order Comment: Speci men Type: BLOOD SPECIMENOrdering Facility: [facility] Address: [address] [place] [address] Performed By: #### 5 8410-2 ####[facility] LABORATORYCLIA [id number] [address] [facility] Magnesium SerPl-mCncon 06-27 Magnesium [Mass/Vol] 2.2 mg/dL Normal 1.7-2.3 [facility] Comment on above: Order Comment: Speci men Type: BLOOD SPECIMENOrdering Facility: [facility] Address: [address] [place] [address] Performed By: #### 2 4321-2, 58917-7 ####[facility] LABORATORYCLIA [id number] [address] [place] NT-proBNP SerPl-mCncon 06-27 Natriuretic peptide.B prohormone N-Terminal [Mass/Vol] 184 pg/mL High <125 [facility] Comment on above: Order Comment: Speci men Type: BLOOD SPECIMENOrdering Facility: [facility] Address: [address] [place] [address] Performed By: #### 3 3762-6 ####[facility] LABORATORYCLIA [id number] [place] [address] [place] NUTRITIONon 06-27-2021 NUTRITION Normal [facility] THERAPY NTon 06-27-2021 THERAPY NT Normal [facility] THERAPY NT Normal [facility] XR CHEST 1V FRONTALon 2021 XR CHEST 1V FRONTAL Normal [facility] Basic metabolic 2000 panelon 06-26-2021 Anion gap [Moles/Vol] 9 mmol/L Normal 9-18 [facility] Comment on above: Order Comment: Speci men Type: BLOOD SPECIMENOrdering Facility: [facility] Address: [address] [place] [address] Performed By: #### 1 9123-9, 18199-6 ####[facility] LABORATORYCLIA [id number] [place] [address] [place] Calcium [Mass/Vol] 8.7 mg/dL Normal 8.5-10.2 [facility] Comment on above: Order Comment: Speci men Type: BLOOD SPECIMENOrdering Facility: [facility] Address: [address] [place] [address] Performed By: #### 1 9123-9, 41578-6 ####[facility] LABORATORYCLIA [id number] [place] [address] [place] Chloride [Moles/Vol] 105 mmol/L Normal 97-105 [facility] Comment on above: Order Comment: Speci men Type: BLOOD SPECIMENOrdering Facility: [facility] Address: [address] [address] Performed By: #### 1 9123-9, 88593-3 ####[facility] LABORATORYCLIA [id number] [place] [address] [place] CO2 [Moles/Vol] 26 mmol/L Normal 22-30 [facility] Comment on above: Order Comment: Speci men Type: BLOOD SPECIMENOrdering Facility: [facility] Address: [address] [address] Performed By: #### 1 9123-9, 02440-8 ####[facility]PITALCLIA [id number] [place] [address] [place] Creatinine [Mass/Vol] 0.56 mg/dL Low 0.73-1.22 [facility] Comment on above: Order Comment: Shira feldman Type: BLOOD SPECIMENOrdering Facility: [facility] Address: [address] [place] [address] Performed By: #### 1 9123-9, 31082-1 ####[facility]PITALCLIA [id number] [place] [address] [place] GFR/1.73 sq M.predicted MDRD (S/P/Bld) [Vol rate/Area] mL/min/{1.73_m2} Normal [facility] Comment on above: Order Comment: [facility] Type: BLOOD SPECIMENOrdering Facility: [facility] Address: [address] [place] [address] Result Comment: >60e GFR (Estimated GFR) Units [...] actual GFR. Performed By: #### 1 9123-9, 95626-7 ####[facility]ITALCLIA [id number] [place] [address] [place] Glucose [Mass/Vol] 134 mg/dL High 74-99 [facility] Comment on above: Order Comment: Shira feldman Type: BLOOD SPECIMENOrdering Facility: [facility] Address: [address] [address] Result Comment: The [place] [employer] (ADA) provides guidance for cutoff [...] Standards of Medical Care in Diabetes 2016, [place] [employer]. Diabetes Care. 2016.39(Suppl 1). Performed By: #### 1 9123-9, 23957-3 ####[facility] LABORATORYCLIA [id number] [place] [address] [place] Potassium [Moles/Vol] 3.8 mmol/L Normal 3.7-5.1 [facility] Comment on above: Order Comment: Shira feldman Type: BLOOD SPECIMENOrdering Facility: [facility] Address: [address] [place] [address] Performed By: #### 1 91239, 97677-8 ####[facility] [id number] [address] STATES [facility] Sodium [Moles/Vol] 140 mmol/L Normal 136-144 [facility] Comment on above: Order Comment: Shira feldman Type: BLOOD SPECIMENOrdering Facility: [facility] Address: [address] [place] [address] Performed By: #### 1 91239-2 ####[facility] LABORATORYCLIA [id number] [address] STATES [facility] Urea nitrogen [Mass/Vol] 24 mg/dL Normal 9-24 [facility] Comment on above: Order Comment: Shira feldman Type: BLOOD SPECIMENOrdering Facility: [facility] Address: [address] [place] [address] Performed By: #### 1 9123-9, 69095-6 ####[facility] LABORATORYCLIA [id number] [address] [place] CBC panel Auto (Bld)on 06-26 Erythrocyte distribution width (RBC) [Ratio] 15.9 % High 11.5-15.0 [facility] Comment on above: Order Comment: Speci men Type: BLOOD SPECIMENOrdering Facility: [facility] Address: [address] [place] [address] Performed By: #### 5 8410-2 ####[facility] LABORATORYCLIA [id number] [address] Hematocrit (Bld) [Volume fraction] 29.8 % Low 39.0-51.0 [facility] Comment on above: Order Comment: Speci men Type: BLOOD SPECIMENOrdering Facility: [facility] Address: [address] [place] [address] Performed By: #### 5 8410-2 ####[facility] LABORATORYCLIA [id number] [address] [facility] Hemoglobin (Bld) [Mass/Vol] 9.1 g/dL Low 13.0-17.0 [facility] Comment on above: Order Comment: Speci men Type: BLOOD SPECIMENOrdering Facility: [facility] Address: [address] [place] [address] Performed By: #### 5 8410-2 ####[facility] LABORATORYCLIA [id number] [address] [place] MCH (RBC) [Entitic mass] 27.8 pg Normal 26.0-34.0 [facility] Comment on above: Order Comment: Speci men Type: BLOOD SPECIMENOrdering Facility: [facility] Address: [address] [place] [address] Performed By: #### 5 8410-2 ####[facility] LABORATORYCLIA [id number] [address] STATES [facility] MCHC (RBC) [Mass/Vol] 30.5 g/dL Normal 30.5-36.0 [facility] Comment on above: Order Comment: Speci men Type: BLOOD SPECIMENOrdering Facility: [facility] Address: [address] [place] [address] Performed By: #### 5 8410-2 ####[facility] LABORATORYCLIA [id number] [address] MCV (RBC) [Entitic vol] 91.1 fL Normal 80.0-100.0 [facility] Comment on above: Order Comment: Speci men Type: BLOOD SPECIMENOrdering Facility: [facility] Address: [address] [place] [address] Performed By: #### 5 8410-2 ####[facility] LABORATORYCLIA [id number] [address] Nucleated RBC (Bld) [#/Vol] 10*3/uL Normal <0.01 [facility] Comment on above: Order Comment: Speci men Type: BLOOD SPECIMENOrdering Facility: [facility] Address: [address] [place] [address] Performed By: #### 5 8410-2 ####[facility] LABORATORYCLIA [id number] [address] Platelet mean volume (Bld) [Entitic vol] 10.3 fL Normal 9.0-12.7 [facility] Comment on above: Order Comment: Speci men Type: BLOOD SPECIMENOrdering Facility: [facility] Address: [address] [place] [address] Performed By: #### 5 8410-2 ####[facility] LABORATORYCLIA [id number] [address] Platelets (Bld) [#/Vol] 336 10*3/uL Normal 150-400 [facility] Comment on above: Order Comment: Speci men Type: BLOOD SPECIMENOrdering Facility: [facility] Address: [address] [place] [address] Performed By: #### 5 8410-2 ####[facility] LABORATORYCLIA [id number] [address] RBC (Bld) [#/Vol] 3.27 10*6/uL Low 4.20-6.00 [facility] Comment on above: Order Comment: Speci men Type: BLOOD SPECIMENOrdering Facility: [facility] Address: [address] [place] [address] Performed By: #### 5 8410-2 ####[facility] LABORATORYCLIA [id number] [place] [address] [place] WBC (Bld) [#/Vol] 9.14 10*3/uL Normal 3.70-11.00 [facility] Comment on above: Order Comment: Speci men Type: BLOOD SPECIMENOrdering Facility: [facility] Address: [address] [place] [address] Performed By: #### 5 8410-2 ####[facility] LABORATORYCLIA [id number] [address] CONSULT PROGon 06-26-2021 CONSULT PROG [facility] Magnesium SerPl-mCncon 06-26 Magnesium [Mass/Vol] 2.2 mg/dL Normal 1.7-2.3 [facility] Comment on above: Order Comment: Speci men Type: BLOOD SPECIMENOrdering Facility: [facility] Address: [address] [place] [address] Performed By: #### 1 9123-9, 89289-4 ####[facility] LABORATORYCLIA [id number] [address] [facility] NURSING PROGon 06-26-2021 NURSING PROG Normal [facility] NURSING PROG Normal [facility] Basic metabolic 2000 panelon 06-25-2021 Anion gap [Moles/Vol] 8 mmol/L Low 9-18 [facility] Comment on above: Order Comment: Speci men Type: BLOOD SPECIMENOrdering Facility: [facility] Address: [address] [place] [address] Performed By: #### 2 4321-2, 14226-9 ####[facility] LABORATORYCLIA [id number] [place] [address] [place] Calcium [Mass/Vol] 8.8 mg/dL Normal 8.5-10.2 [facility] Comment on above: Order Comment: Speci men Type: BLOOD SPECIMENOrdering Facility: [facility] Address: [address] [place] [address] Performed By: #### 2 4321-2, ####[facility] LABORATORYCLIA [id number] [place] [address] [place] Chloride [Moles/Vol] 105 mmol/L Normal 97-105 [facility] Comment on above: Order Comment: Speci men Type: BLOOD SPECIMENOrdering Facility: [facility] Address: [address] [place] [address] Performed By: #### 2 4320-2, ####[facility] LABORATORYCLIA [id number] [address] [place] CO2 [Moles/Vol] 27 mmol/L Normal 22-30 [facility] Comment on above: Order Comment: Speci men Type: BLOOD SPECIMENOrdering Facility: [facility] Address: [address] [place] [address] Performed By: #### 2 2, ####[facility] LABORATORYCLIA [id number] [place] [address] [place] Creatinine [Mass/Vol] 0.59 mg/dL Low 0.73-1.22 [facility] Comment on above: Order Comment: Speci men Type: BLOOD SPECIMENOrdering Facility: [facility] Address: [address] [place] [address] Performed By: #### 2 4320-2, ####[facility] LABORATORYCLIA [id number] [place] [address] [place] GFR/1.73 sq M.predicted MDRD (S/P/Bld) [Vol rate/Area] mL/min/{1.73_m2} Normal [facility] Comment on above: Order Comment: Speci men Type: BLOOD SPECIMENOrdering Facility: [facility] Address: [address] [id number] Result Comment: >60e GFR (Estimated GFR) Units [...] actual GFR. Performed By: #### 2 4321-2, 37246-0 ####[facility]ITALCLIA [id number] [place] [address] [place] Glucose [Mass/Vol] 132 mg/dL High 74-99 [facility] Comment on above: Order Comment: Shira feldman Type: BLOOD SPECIMENOrdering Facility: [facility] Address: [address] [place] [address] Result Comment: The [place] [employer] (ADA) provides guidance for cutoff [...] Standards of Medical Care in Diabetes 2016, [place] [employer]. Diabetes Care. 2016.39(Suppl 1). Performed By: #### 2 4321-2, 15926-5 ####[facility] LABORATORYCLIA [id number] [place] [id number] [place] Potassium [Moles/Vol] 3.9 mmol/L Normal 3.7-5.1 [facility] Comment on above: Order Comment: Shira feldman Type: BLOOD SPECIMENOrdering Facility: [facility] Address: [address] [address] Performed By: #### 2 4321-2, ####[facility] LABORATORYCLIA [id number] [address] Sodium [Moles/Vol] 140 mmol/L Normal 136-144 [facility] Comment on above: Order Comment: Speci men Type: BLOOD SPECIMENOrdering Facility: [facility] Address: [address] [place] [address] Performed By: #### 2 4321-2, ####[facility] LABORATORYCLIA [id number] [address] STATES OF [facility] Urea nitrogen [Mass/Vol] 24 mg/dL Normal 9-24 [facility] Comment on above: Order Comment: Speci men Type: BLOOD SPECIMENOrdering Facility: [facility] Address: [address] [place] [address] Performed By: #### 2 2, ####[facility] LABORATORYCLIA [id number] [address] [place] CASE MANAGEMon 06-25-2021 CASE MANAGEM Normal [facility] CBC panel Auto (Bld)on 06-25 Erythrocyte distribution width (RBC) [Ratio] 15.9 % High 11.5-15.0 [facility] Comment on above: Order Comment: Speci men Type: BLOOD SPECIMENOrdering Facility: [facility] Address: [address] [address] Performed By: #### 5 8410-2 ####[facility] LABORATORYCLIA [id number] [address] STATES [facility] Hematocrit (Bld) [Volume fraction] 31.0 % Low 39.0-51.0 [facility] Comment on above: Order Comment: Speci men Type: BLOOD SPECIMENOrdering Facility: [facility] Address: [address] [place] [address] Performed By: #### 5 8410-2 ####[facility] LABORATORYCLIA [id number] [address] OF [facility] Hemoglobin (Bld) [Mass/Vol] 9.4 g/dL Low 13.0-17.0 [facility] Comment on above: Order Comment: Speci men Type: BLOOD SPECIMENOrdering Facility: [facility] Address: [address] [place] [address] Performed By: #### 5 8410-2 ####[facility] LABORATORYCLIA [id number] [address] MCH (RBC) [Entitic mass] 28.1 pg Normal 26.0-34.0 [facility] Comment on above: Order Comment: Speci men Type: BLOOD SPECIMENOrdering Facility: [facility] Address: [address] [place] [address] Performed By: #### 5 8410-2 ####[facility] LABORATORYCLIA [id number] [address] MCHC (RBC) [Mass/Vol] 30.3 g/dL Low 30.5-36.0 [facility] Comment on above: Order Comment: Speci men Type: BLOOD SPECIMENOrdering Facility: [facility] Address: [address] [place] [address] Performed By: #### 5 8410-2 ####[facility] LABORATORYCLIA [id number] [address] STATES [facility] MCV (RBC) [Entitic vol] 92.5 fL Normal 80.0-100.0 [facility] Comment on above: Order Comment: Speci men Type: BLOOD SPECIMENOrdering Facility: [facility] Address: [address] [place] [address] Performed By: #### 5 8410-2 ####[facility] LABORATORYCLIA [id number] [address] Nucleated RBC (Bld) [#/Vol] 10*3/uL Normal <0.01 [facility] Comment on above: Order Comment: Speci men Type: BLOOD SPECIMENOrdering Facility: [facility] Address: [address] [place] [address] Performed By: #### 5 8410-2 ####[facility] LABORATORYCLIA [id number] [address] Platelet mean volume (Bld) [Entitic vol] 10.5 fL Normal 9.0-12.7 [facility] Comment on above: Order Comment: Speci men Type: BLOOD SPECIMENOrdering Facility: [facility] Address: [address] [place] [address] Performed By: #### 5 8410-2 ####[facility] LABORATORYCLIA [id number] [address] [place] Platelets (Bld) [#/Vol] 311 10*3/uL Normal 150-400 [facility] Comment on above: Order Comment: Speci men Type: BLOOD SPECIMENOrdering Facility: [facility] Address: [address] [place] [address] Performed By: #### 5 8410-2 ####[facility] LABORATORYCLIA [id number] [address] [place] RBC (Bld) [#/Vol] 3.35 10*6/uL Low 4.20-6.00 [facility] Comment on above: Order Comment: Speci men Type: BLOOD SPECIMENOrdering Facility: [facility] Address: [address] [place] [address] Performed By: #### 5 8410-2 ####[facility] LABORATORYCLIA [id number] [address] [place] WBC (Bld) [#/Vol] 9.57 10*3/uL Normal 3.70-11.00 [facility] Comment on above: Order Comment: Speci men Type: BLOOD SPECIMENOrdering Facility: [facility] Address: [address] [place] [address] Performed By: #### 5 8410-2 ####[facility] LABORATORYCLIA [id number] [place] [address] [place] Magnesium SerPl-mCncon 06-25 Magnesium [Mass/Vol] 2.4 mg/dL High 1.7-2.3 [facility] Comment on above: Order Comment: Speci men Type: BLOOD SPECIMENOrdering Facility: [facility] Address: [address] [place] [address] Performed By: #### 2 4321-2, 01968-2 ####[facility] LABORATORYCLIA [id number] [place] [address] [place] Basic metabolic 2000 panelon 06-24-2021 Anion gap [Moles/Vol] 9 mmol/L Normal 9-18 [facility] Comment on above: Order Comment: Speci men Type: BLOOD SPECIMENOrdering Facility: [facility] Address: [address] [place] [address] Performed By: #### 1 9123-9, 92076-4 ####[facility] LABORATORYCLIA [id number] [place] [address] [place] Calcium [Mass/Vol] 8.6 mg/dL Normal 8.5-10.2 [facility] Comment on above: Order Comment: Speci men Type: BLOOD SPECIMENOrdering Facility: [facility] Address: [address] [place] [address] Performed By: #### 1 9123-9, 04271-6 ####[facility] LABORATORYCLIA [id number] [place] [address] [place] Chloride [Moles/Vol] 103 mmol/L Normal 97-105 [facility] Comment on above: Order Comment: Speci men Type: BLOOD SPECIMENOrdering Facility: [facility] Address: [address] [place] [address] Performed By: #### 1 9123-9, 87609-6 ####[facility] LABORATORYCLIA [id number] [place] [address] [place] CO2 [Moles/Vol] 26 mmol/L Normal 22-30 [facility] Comment on above: Order Comment: Johncara feldman Type: BLOOD SPECIMENOrdering Facility: [facility] Address: [address] [place] [address] Performed By: #### 1 9123-9, 24320-8 ####[facility] LABORATORYCLIA [id number] [place] [address] [place] Creatinine [Mass/Vol] 0.60 mg/dL Low 0.73-1.22 [facility] Comment on above: Order Comment: Speci men Type: BLOOD SPECIMENOrdering Facility: [facility] Address: [address] [place] [address] Performed By: #### 1 9123-9, 03665-9 ####[facility]ITALCLIA [id number] [place] [address] [place] GFR/1.73 sq M.predicted MDRD (S/P/Bld) [Vol rate/Area] mL/min/{1.73_m2} Normal [facility] Comment on above: Order Comment: Johncara feldman Type: BLOOD SPECIMENOrdering Facility: [facility] Address: [address] [place] [address] Result Comment: >60e GFR (Estimated GFR) Units [...] actual GFR. Performed By: #### 1 9123-9, 75653-7 ####[facility] LABORATORYCLIA [id number] [place] [id number] [place] Glucose [Mass/Vol] 126 mg/dL High 74-99 [facility] Comment on above: Order Comment: Speci francia Type: BLOOD SPECIMENOrdering Facility: [facility] Address: [address] [id number] Result Comment: The [place] [employer] (ADA) provides guidance for cutoff [...] Standards of Medical Care in Diabetes 2016, [place] [employer]. Diabetes Care. 2016.39(Suppl 1). Performed By: #### 1 9123-9, 58797-4 ####[facility] LABORATORYCLIA [id number] [place] [address] [place] Potassium [Moles/Vol] 3.9 mmol/L Normal 3.7-5.1 [facility] Comment on above: Order Comment: Speci men Type: BLOOD SPECIMENOrdering Facility: [facility] Address: [address] [address] Performed By: #### 1 9123-9, 87936-2 ####[facility] LABORATORYCLIA [id number] [place] [address] [place] Sodium [Moles/Vol] 138 mmol/L Normal 136-144 [facility] Comment on above: Order Comment: Speci men Type: BLOOD SPECIMENOrdering Facility: [facility] Address: [address] [address] Performed By: #### 1 9123-9, 41694-3 ####[facility] LABORATORYCLIA [id number] [place] [address] [place] Urea nitrogen [Mass/Vol] 24 mg/dL Normal 9-24 [facility] Comment on above: Order Comment: Speci men Type: BLOOD SPECIMENOrdering Facility: [facility] Address: [address] Performed By: #### 1 9123-9, 99002-8 ####[facility] LABORATORYCLIA [id number] [address] CASE MANAGEMon 06-24-2021 CASE MANAGEM Normal [facility] CASE MANAGEM Normal [facility] CASE MANAGEM Normal [facility] CBC panel Auto (Bld)on 06-24 Erythrocyte distribution width (RBC) [Ratio] 16.1 % High 11.5-15.0 [facility] Comment on above: Order Comment: Speci men Type: BLOOD SPECIMENOrdering Facility: [facility] Address: [address] [place] [address] Performed By: #### 5 8410-2 ####[facility] LABORATORYCLIA [id number] [address] [place] Hematocrit (Bld) [Volume fraction] 31.7 % Low 39.0-51.0 [facility] Comment on above: Order Comment: Speci men Type: BLOOD SPECIMENOrdering Facility: [facility] Address: [address] [place] [address] Performed By: #### 5 8410-2 ####[facility] LABORATORYCLIA [id number] [address] [place] Hemoglobin (Bld) [Mass/Vol] 9.7 g/dL Low 13.0-17.0 [facility] Comment on above: Order Comment: Speci men Type: BLOOD SPECIMENOrdering Facility: [facility] Address: [address] [place] [address] Performed By: #### 5 8410-2 ####[facility] LABORATORYCLIA [id number] [address] STATES [facility] MCH (RBC) [Entitic mass] 28.0 pg Normal 26.0-34.0 [facility] Comment on above: Order Comment: Speci men Type: BLOOD SPECIMENOrdering Facility: [facility] Address: [address] [place] [address] Performed By: #### 5 8410-2 ####[facility] LABORATORYCLIA [id number] [address] STATES [facility] MCHC (RBC) [Mass/Vol] 30.6 g/dL Normal 30.5-36.0 [facility] Comment on above: Order Comment: Speci men Type: BLOOD SPECIMENOrdering Facility: [facility] Address: [address] [place] [address] Performed By: #### 5 8410-2 ####[facility] LABORATORYCLIA [id number] [address] MCV (RBC) [Entitic vol] 91.4 fL Normal 80.0-100.0 [facility] Comment on above: Order Comment: Speci men Type: BLOOD SPECIMENOrdering Facility: [facility] Address: [address] [place] [address] Performed By: #### 5 8410-2 ####[facility] LABORATORYCLIA [id number] [address] Nucleated RBC (Bld) [#/Vol] 10*3/uL Normal <0.01 [facility] Comment on above: Order Comment: Speci men Type: BLOOD SPECIMENOrdering Facility: [facility] Address: [address] [place] [address] Performed By: #### 5 8410-2 ####[facility] LABORATORYCLIA [id number] [address] [place] Platelet mean volume (Bld) [Entitic vol] 11.0 fL Normal 9.0-12.7 [facility] Comment on above: Order Comment: Speci men Type: BLOOD SPECIMENOrdering Facility: [facility] Address: [address] [place] [address] Performed By: #### 5 8410-2 ####[facility] LABORATORYCLIA [id number] [address] [place] Platelets (Bld) [#/Vol] 358 10*3/uL Normal 150-400 [facility] Comment on above: Order Comment: Speci men Type: BLOOD SPECIMENOrdering Facility: [facility] Address: [address] [place] [address] Performed By: #### 5 8410-2 ####[facility] LABORATORYCLIA [id number] [address] OF [facility] RBC (Bld) [#/Vol] 3.47 10*6/uL Low 4.20-6.00 [facility] Comment on above: Order Comment: Speci men Type: BLOOD SPECIMENOrdering Facility: [facility] Address: [address] [place] [address] Performed By: #### 5 8410-2 ####[facility] LABORATORYCLIA [id number] [address] WBC (Bld) [#/Vol] 10.07 10*3/uL Normal 3.70-11.00 [facility] Comment on above: Order Comment: Speci men Type: BLOOD SPECIMENOrdering Facility: [facility] Address: [address] [place] [address] Performed By: #### 5 8410-2 ####[facility] LABORATORYCLIA [id number] [address] Magnesium SerPl-mCncon 06-24 Magnesium [Mass/Vol] 2.3 mg/dL Normal 1.7-2.3 [facility] Comment on above: Order Comment: Speci men Type: BLOOD SPECIMENOrdering Facility: [facility] Address: [address] [place] [address] Performed By: #### 1 9123-9, 29997-3 ####[facility] LABORATORYCLIA [id number] [address] [place] ALLIED HEALTHon 06-23-2021 ALLIED HEALTH Normal [facility] Basic metabolic 2000 panelon 06-23-2021 Anion gap [Moles/Vol] 9 mmol/L Normal 9-18 [facility] Comment on above: Order Comment: Speci men Type: BLOOD SPECIMENOrdering Facility: [facility] Address: [address] [address] Performed By: #### 1 9, 23180-4 ####[facility]ORATORYCLIA [id number] [place] [address] [place] Calcium [Mass/Vol] 8.4 mg/dL Low 8.5-10.2 [facility] Comment on above: Order Comment: Speci men Type: BLOOD SPECIMENOrdering Facility: [facility] Address: [address] [place] [address] Performed By: #### 1 9123-01, 06034-4 ####[facility]ORATORYCLIA [id number] [place] [address] [place] Chloride [Moles/Vol] 104 mmol/L Normal 97-105 [facility] Comment on above: Order Comment: Speci men Type: BLOOD SPECIMENOrdering Facility: [facility] Address: [address] [place] [address] Performed By: #### 1 9123-01, 93656-0 ####[facility] LABORATORYCLIA [id number] [place] [address] [place] CO2 [Moles/Vol] 26 mmol/L Normal 22-30 [facility] Comment on above: Order Comment: Speci men Type: BLOOD SPECIMENOrdering Facility: [facility] Address: [address] [place] [address] Performed By: #### 1 9123-01, 22188-4 ####[facility]ORATORYCLIA [id number] [place] [address] [place] Creatinine [Mass/Vol] 0.62 mg/dL Low 0.73-1.22 [facility] Comment on above: Order Comment: Speci men Type: BLOOD SPECIMENOrdering Facility: [facility] Address: [address] [address] Performed By: #### 1 9123-01, 77776-1 ####[facility] LABORATORYCLIA [id number] [place] [address] [place] GFR/1.73 sq M.predicted MDRD (S/P/Bld) [Vol rate/Area] mL/min/{1.73_m2} Normal [facility] Comment on above: Order Comment: Shira feldman Type: BLOOD SPECIMENOrdering Facility: [facility] Address: [address] [place] [address] Result Comment: >60e GFR (Estimated GFR) Units [...] actual GFR. Performed By: #### 1 9123-9, 22641-9 ####[facility] LABORATORYCLIA [id number] [address] [place] Glucose [Mass/Vol] 111 mg/dL High 74-99 [facility] Comment on above: Order Comment: Shira feldman Type: BLOOD SPECIMENOrdering Facility: [facility] Address: [address] [place] [address] Result Comment: The [place] [employer] (ADA) provides guidance for cutoff [...] Standards of Medical Care in Diabetes 2016, [place] [employer]. Diabetes Care. 2016.39(Suppl 1). Performed By: #### 1 9123-9, 61761-1 ####[facility] LABORATORYCLIA [id number] [place] [address] [place] Potassium [Moles/Vol] 4.1 mmol/L Normal 3.7-5.1 [facility] Comment on above: Order Comment: Speci men Type: BLOOD SPECIMENOrdering Facility: [facility] Address: [address] [place] [address] Performed By: #### 1 9123-9, 61060-3 ####[facility] LABORATORYCLIA [id number] [address] STATES [facility] Sodium [Moles/Vol] 139 mmol/L Normal 136-144 [facility] Comment on above: Order Comment: Speci men Type: BLOOD SPECIMENOrdering Facility: [facility] Address: [address] [place] [address] Performed By: #### 1 9123-9, 89537-7 ####[facility] LABORATORYCLIA [id number] [address] STATES [facility] Urea nitrogen [Mass/Vol] 26 mg/dL High 9-24 [facility] Comment on above: Order Comment: Speci men Type: BLOOD SPECIMENOrdering Facility: [facility] Address: [address] [place] [address] Performed By: #### 1 9123-9, 23500-3 ####[facility] LABORATORYCLIA [id number] [address] [place] CASE MANAGEMon 06-23-2021 CASE MANAGEM Normal [facility] CBC panel Auto (Bld)on 06-23 Erythrocyte distribution width (RBC) [Ratio] 16.0 % High 11.5-15.0 [facility] Comment on above: Order Comment: Speci men Type: BLOOD SPECIMENOrdering Facility: [facility] Address: [address] [place] [address] Performed By: #### 5 8410-2 ####[facility] LABORATORYCLIA [id number] [address] [place] Hematocrit (Bld) [Volume fraction] 31.1 % Low 39.0-51.0 [facility] Comment on above: Order Comment: Speci men Type: BLOOD SPECIMENOrdering Facility: [facility] Address: [address] [place] [address] Performed By: #### 5 8410-2 ####[facility] LABORATORYCLIA [id number] [address] OF [facility] Hemoglobin (Bld) [Mass/Vol] 9.5 g/dL Low 13.0-17.0 [facility] Comment on above: Order Comment: Speci men Type: BLOOD SPECIMENOrdering Facility: [facility] Address: [address] [place] [address] Performed By: #### 5 8410-2 ####[facility] LABORATORYCLIA [id number] [address] [place] [facility] MCH (RBC) [Entitic mass] 28.1 pg Normal 26.0-34.0 [facility] Comment on above: Order Comment: Speci men Type: BLOOD SPECIMENOrdering Facility: [facility] Address: [address] [place] [address] Performed By: #### 5 8410-2 ####[facility] LABORATORYCLIA [id number] [address] MCHC (RBC) [Mass/Vol] 30.5 g/dL Normal 30.5-36.0 [facility] Comment on above: Order Comment: Speci men Type: BLOOD SPECIMENOrdering Facility: [facility] Address: [address] [place] [address] Performed By: #### 5 8410-2 ####[facility] LABORATORYCLIA [id number] [address] MCV (RBC) [Entitic vol] 92.0 fL Normal 80.0-100.0 [facility] Comment on above: Order Comment: Speci men Type: BLOOD SPECIMENOrdering Facility: [facility] Address: [address] [place] [address] Performed By: #### 5 8410-2 ####[facility] LABORATORYCLIA [id number] [address] [place] Nucleated RBC (Bld) [#/Vol] 10*3/uL Normal <0.01 [facility] Comment on above: Order Comment: Speci men Type: BLOOD SPECIMENOrdering Facility: [facility] Address: [address] [place] [address] Performed By: #### 5 8410-2 ####[facility] LABORATORYCLIA [id number] [address] [place] Platelet mean volume (Bld) [Entitic vol] 11.0 fL Normal 9.0-12.7 [facility] Comment on above: Order Comment: Speci men Type: BLOOD SPECIMENOrdering Facility: [facility] Address: [address] [place] [address] Performed By: #### 5 8410-2 ####[facility] LABORATORYCLIA [id number] [address] [facility] Platelets (Bld) [#/Vol] 361 10*3/uL Normal 150-400 [facility] Comment on above: Order Comment: Speci men Type: BLOOD SPECIMENOrdering Facility: [facility] Address: [address] [place] [address] Performed By: #### 5 8410-2 ####[facility] LABORATORYCLIA [id number] [address] [place] RBC (Bld) [#/Vol] 3.38 10*6/uL Low 4.20-6.00 [facility] Comment on above: Order Comment: Speci men Type: BLOOD SPECIMENOrdering Facility: [facility] Address: [address] [place] [address] Performed By: #### 5 8410-2 ####[facility] LABORATORYCLIA [id number] [address] [place] WBC (Bld) [#/Vol] 9.02 10*3/uL Normal 3.70-11.00 [facility] Comment on above: Order Comment: Speci men Type: BLOOD SPECIMENOrdering Facility: [facility] Address: [address] [place] [address] Performed By: #### 5 8410-2 ####[facility] LABORATORYCLIA [id number] [address] CONSULT PROGon 06-23-2021 CONSULT PROG Normal [facility] CONSULT PROG Normal [facility] Magnesium SerPl-mCncon 06-23 Magnesium [Mass/Vol] 2.4 mg/dL High 1.7-2.3 [facility] Comment on above: Order Comment: Speci men Type: BLOOD SPECIMENOrdering Facility: [facility] Address: [address] [place] [address] Performed By: #### 1 9123-9, 24702-2 ####[facility] LABORATORYCLIA [id number] [address] THERAPY NTon 06-23-2021 THERAPY NT Normal [facility] Vancomycin random [Mass/Vol] on 06-23-2021 Vancomycin [Mass/Vol] 22.8 ug/mL High 10.0-20.0 [facility] Comment on above: Order Comment: Speci men Type: BLOOD SPECIMENOrdering Facility: [facility] Address: [address] [place] [address] Result Comment: Refe rence ranges and high/low indicator flags are provided as general guidelines only. The treating physician must determine appropriate target levels/dosing based on the specific clinical situation. Performed By: #### 4 091-5 ####[facility] LABORATORYCLIA [id number] [address] [place] XR MOD BARIUM SWALLOW W SPEE Lore 06-23-2021 XR MOD BARIUM SWALLOW W SPEECH Normal [facility] Basic metabolic 2000 panelon 06-22-2021 Anion gap [Moles/Vol] 6 mmol/L Low 9-18 [facility] Comment on above: Order Comment: Speci men Type: BLOOD SPECIMENOrdering Facility: [facility] Address: [address] [place] [address] Performed By: #### 2 4320-2, ####[facility]ORATORYCLIA [id number] [place] [address] [place] Calcium [Mass/Vol] 8.5 mg/dL Normal 8.5-10.2 [facility] Comment on above: Order Comment: Speci men Type: BLOOD SPECIMENOrdering Facility: [facility] Address: [address] [place] [address] Performed By: #### 2 2, ####[facility] LABORATORYCLIA [id number] [place] [address] [place] Chloride [Moles/Vol] 105 mmol/L Normal 97-105 [facility] Comment on above: Order Comment: Speci men Type: BLOOD SPECIMENOrdering Facility: [facility] Address: [address] [place] [address] Performed By: #### 2 4320-06, ####[facility] LABORATORYCLIA [id number] [place] [address] [place] CO2 [Moles/Vol] 26 mmol/L Normal 22-30 [facility] Comment on above: Order Comment: Speci men Type: BLOOD SPECIMENOrdering Facility: [facility] Address: [address] [place] [address] Performed By: #### 2 2, ####[facility]ORATORYCLIA [id number] [place] [address] [place] Creatinine [Mass/Vol] 0.56 mg/dL Low 0.73-1.22 [facility] Comment on above: Order Comment: Speci men Type: BLOOD SPECIMENOrdering Facility: [facility] Address: [address] [place] [address] Performed By: #### 2 2, ####[facility] LABORATORYCLIA [id number] [place] [address] [place] GFR/1.73 sq M.predicted MDRD (S/P/Bld) [Vol rate/Area] mL/min/{1.73_m2} Normal [facility] Comment on above: Order Comment: Shira feldman Type: BLOOD SPECIMENOrdering Facility: [facility] Address: [address] [id number] Result Comment: >60e GFR (Estimated GFR) Units [...] actual GFR. Performed By: #### 2 4321-2, 77147-1 ####[facility] LABORATORYCLIA [id number] [address] STATES OF [facility] Glucose [Mass/Vol] 120 mg/dL High 74-99 [facility] Comment on above: Order Comment: Shira feldman Type: BLOOD SPECIMENOrdering Facility: [facility] Address: [address] [place] [address] Result Comment: The [place] [employer] (ADA) provides guidance for cutoff [...] Standards of Medical Care in Diabetes 2016, [place] [employer]. Diabetes Care. 2016.39(Suppl 1). Performed By: #### 2 4321-2, 10816-5 ####[facility] LABORATORYCLIA [id number] [place] [address] [place] Potassium [Moles/Vol] 4.0 mmol/L Normal 3.7-5.1 [facility] Comment on above: Order Comment: Speci men Type: BLOOD SPECIMENOrdering Facility: [facility] Address: [address] [place] [address] Performed By: #### 2 4321-2, ####[facility] LABORATORYCLIA [id number] [place] [address] [place] Sodium [Moles/Vol] 137 mmol/L Normal 136-144 [facility] Comment on above: Order Comment: Speci men Type: BLOOD SPECIMENOrdering Facility: [facility] Address: [address] [place] [address] Performed By: #### 2 4321-2, ####[facility] LABORATORYCLIA [id number] [address] STATES [facility] Urea nitrogen [Mass/Vol] 25 mg/dL High 9-24 [facility] Comment on above: Order Comment: Speci men Type: BLOOD SPECIMENOrdering Facility: [facility] Address: [address] [place] [address] Performed By: #### 2 4321-2, ####[facility] LABORATORYCLIA [id number] [address] [place] CASE MANAGEMon 06-22-2021 CASE MANAGEM Normal [facility] CBC panel Auto (Bld)on 06-22 Erythrocyte distribution width (RBC) [Ratio] 16.0 % High 11.5-15.0 [facility] Comment on above: Order Comment: Speci men Type: BLOOD SPECIMENOrdering Facility: [facility] Address: [address] [place] [address] Performed By: #### 5 8410-2 ####[facility] LABORATORYCLIA [id number] [address] [place] Hematocrit (Bld) [Volume fraction] 30.5 % Low 39.0-51.0 [facility] Comment on above: Order Comment: Speci men Type: BLOOD SPECIMENOrdering Facility: [facility] Address: [address] [place] [address] Performed By: #### 5 8410-2 ####[facility] LABORATORYCLIA [id number] [address] STATES [place] [facility] Hemoglobin (Bld) [Mass/Vol] 9.3 g/dL Low 13.0-17.0 [facility] Comment on above: Order Comment: Speci men Type: BLOOD SPECIMENOrdering Facility: [facility] Address: [address] [place] [address] Performed By: #### 5 8410-2 ####[facility] LABORATORYCLIA [id number] [address] [place] MCH (RBC) [Entitic mass] 28.4 pg Normal 26.0-34.0 [facility] Comment on above: Order Comment: Speci men Type: BLOOD SPECIMENOrdering Facility: [facility] Address: [address] [place] [address] Performed By: #### 5 8410-2 ####[facility] LABORATORYCLIA [id number] [address] [place] MCHC (RBC) [Mass/Vol] 30.5 g/dL Normal 30.5-36.0 [facility] Comment on above: Order Comment: Speci men Type: BLOOD SPECIMENOrdering Facility: [facility] Address: [address] [place] [address] Performed By: #### 5 8410-2 ####[facility] LABORATORYCLIA [id number] [address] [place] MCV (RBC) [Entitic vol] 93.3 fL Normal 80.0-100.0 [facility] Comment on above: Order Comment: Speci men Type: BLOOD SPECIMENOrdering Facility: [facility] Address: [address] [place] [address] Performed By: #### 5 8410-2 ####[facility] LABORATORYCLIA [id number] [address] [place] Nucleated RBC (Bld) [#/Vol] 10*3/uL Normal <0.01 [facility] Comment on above: Order Comment: Speci men Type: BLOOD SPECIMENOrdering Facility: [facility] Address: [address] [place] [address] Performed By: #### 5 8410-2 ####[facility] LABORATORYCLIA [id number] [address] [place] Platelet mean volume (Bld) [Entitic vol] 11.5 fL Normal 9.0-12.7 [facility] Comment on above: Order Comment: Speci men Type: BLOOD SPECIMENOrdering Facility: [facility] Address: [address] [place] [address] Performed By: #### 5 8410-2 ####[facility] LABORATORYCLIA [id number] [address] [place] Platelets (Bld) [#/Vol] 346 10*3/uL Normal 150-400 [facility] Comment on above: Order Comment: Speci men Type: BLOOD SPECIMENOrdering Facility: [facility] Address: [address] [place] [address] Performed By: #### 5 8410-2 ####[facility] LABORATORYCLIA [id number] [address] [place] RBC (Bld) [#/Vol] 3.27 10*6/uL Low 4.20-6.00 [facility] Comment on above: Order Comment: Speci men Type: BLOOD SPECIMENOrdering Facility: [facility] Address: [address] [place] [address] Performed By: #### 5 8410-2 ####[facility] LABORATORYCLIA [id number] [address] [place] WBC (Bld) [#/Vol] 9.44 10*3/uL Normal 3.70-11.00 [facility] Comment on above: Order Comment: Speci men Type: BLOOD SPECIMENOrdering Facility: [facility] Address: [address] [place] [address] Performed By: #### 5 8410-2 ####[facility] LABORATORYCLIA [id number] [address] [place] HEMOGLOBIN (HGB)on Hemoglobin (Bld) [Mass/Vol] 9.7 g/dL Low 13.0-17.0 [facility] Comment on above: Order Comment: Speci men Type: BLOOD SPECIMENOrdering Facility: [facility] Address: [address] [place] [address] Performed By: #### H GB ####[facility] LABORATORYCLIA [id number] [address] [place] Magnesium SerPl-mCncon 06-22 Magnesium [Mass/Vol] 2.4 mg/dL High 1.7-2.3 [facility] Comment on above: Order Comment: Speci men Type: BLOOD SPECIMENOrdering Facility: [facility] Address: [address] [place] [address] Performed By: #### 2 4321-2, 83024-3 ####[facility] LABORATORYCLIA [id number] [address] OF [facility] THERAPY NTon 06-22-2021 THERAPY NT Normal [facility] THERAPY NT Normal [facility] aPTT PPPon 06-22-2021 aPTT Coag (PPP) [Time] 62.3 s High 23.0-32.4 [facility] Comment on above: Order Comment: Speci men Type: BLOOD SPECIMENOrdering Facility: [facility] Address: [address] [place] [address] Performed By: #### 1 4979-9 ####[facility] LABORATORYCLIA [id number] [place] [address] [place] ALLIED HEALTHon 06-21-2021 ALLIED HEALTH Normal [facility] Basic metabolic 2000 panelon 02-15-2022 Anion gap [Moles/Vol] 8 mmol/L Low 9-18 [facility] Comment on above: Order Comment: Speci men Type: BLOOD SPECIMENOrdering Facility: [facility] Address: [address] [address] Performed By: #### 2 4321-2, ####[facility] LABORATORYCLIA [id number] [place] [address] [place] Calcium [Mass/Vol] 8.2 mg/dL Low 8.5-10.2 [facility] Comment on above: Order Comment: Speci men Type: BLOOD SPECIMENOrdering Facility: [facility] Address: [address] [place] [address] Performed By: #### 2 2, ####[facility] LABORATORYCLIA [id number] [place] [address] [place] Chloride [Moles/Vol] 108 mmol/L High 97-105 [facility] Comment on above: Order Comment: Speci men Type: BLOOD SPECIMENOrdering Facility: [facility] Address: [address] [place] [address] Performed By: #### 2 2, ####[facility]ORATORYCLIA [id number] [place] [address] [place] CO2 [Moles/Vol] 24 mmol/L Normal 22-30 [facility] Comment on above: Order Comment: Speci men Type: BLOOD SPECIMENOrdering Facility: [facility] Address: [address] [place] [address] Performed By: #### 2 2, ####[facility] LABORATORYCLIA [id number] [place] [address] [place] Creatinine [Mass/Vol] 0.61 mg/dL Low 0.73-1.22 [facility] Comment on above: Order Comment: Speci men Type: BLOOD SPECIMENOrdering Facility: [facility] Address: [address] [place] [address] Performed By: #### 2 4321-2, 20767-5 ####[facility] LABORATORYCLIA [id number] [place] [address] [place] GFR/1.73 sq M.predicted MDRD (S/P/Bld) [Vol rate/Area] mL/min/{1.73_m2} Normal [facility] Comment on above: Order Comment: Shira feldman Type: BLOOD SPECIMENOrdering Facility: [facility] Address: [address] [place] [phone] Result Comment: >60e GFR (Estimated GFR) Units [...] actual GFR. Performed By: #### 2 4321-2, 63128-6 ####[facility] LABORATORYCLIA [id number] [address] [id number] [place] Glucose [Mass/Vol] 211 mg/dL High 74-99 [facility] Comment on above: Order Comment: Shira feldman Type: BLOOD SPECIMENOrdering Facility: [facility] Address: [address] [place] [phone] Result Comment: The [place] [employer] (ADA) provides guidance for cutoff [...] Standards of Medical Care in Diabetes 2016, [place] [employer]. Diabetes Care. 2016.39(Suppl 1). Performed By: #### 2 432-2, ####[facility] LABORATORYCLIA [id number] [address] [place] Potassium [Moles/Vol] 4.3 mmol/L Normal 3.7-5.1 [facility] Comment on above: Order Comment: Speci men Type: BLOOD SPECIMENOrdering Facility: [facility] Address: [address] [place] [address] Performed By: #### 2 43205-08, ####[facility] LABORATORYCLIA [id number] [address] [place] [facility] Sodium [Moles/Vol] 140 mmol/L Normal 136-144 [facility] Comment on above: Order Comment: Speci men Type: BLOOD SPECIMENOrdering Facility: [facility] Address: [address] [place] [address] Performed By: #### 2 4320-06, ####[facility] LABORATORYCLIA [id number] [address] [place] [facility] Urea nitrogen [Mass/Vol] 26 mg/dL High 9-24 [facility] Comment on above: Order Comment: Speci men Type: BLOOD SPECIMENOrdering Facility: [facility] Address: [address] [place] [address] Performed By: #### 2 4320-06, ####[facility] LABORATORYCLIA [id number] [address] [place] CBC panel Auto (Bld)on 06-21 Erythrocyte distribution width (RBC) [Ratio] 16.1 % High 11.5-15.0 [facility] Comment on above: Order Comment: Speci men Type: BLOOD SPECIMENOrdering Facility: [facility] Address: [address] [place] [address] Performed By: #### 5 8410-2 ####[facility] LABORATORYCLIA [id number] [address] [place] Hematocrit (Bld) [Volume fraction] 29.7 % Low 39.0-51.0 [facility] Comment on above: Order Comment: Speci men Type: BLOOD SPECIMENOrdering Facility: [facility] Address: [address] [place] [address] Performed By: #### 5 8410-2 ####[facility] LABORATORYCLIA [id number] [address] OF [facility] Hemoglobin (Bld) [Mass/Vol] 9.2 g/dL Low 13.0-17.0 [facility] Comment on above: Order Comment: Speci men Type: BLOOD SPECIMENOrdering Facility: [facility] Address: [address] [place] [address] Performed By: #### 5 8410-2 ####[facility] LABORATORYCLIA [id number] [address] [place] [facility] MCH (RBC) [Entitic mass] 28.8 pg Normal 26.0-34.0 [facility] Comment on above: Order Comment: Speci men Type: BLOOD SPECIMENOrdering Facility: [facility] Address: [address] [place] [address] Performed By: #### 5 8410-2 ####[facility] LABORATORYCLIA [id number] [address] [place] MCHC (RBC) [Mass/Vol] 31.0 g/dL Normal 30.5-36.0 [facility] Comment on above: Order Comment: Speci men Type: BLOOD SPECIMENOrdering Facility: [facility] Address: [address] [place] [address] Performed By: #### 5 8410-2 ####[facility] LABORATORYCLIA [id number] [address] MCV (RBC) [Entitic vol] 93.1 fL Normal 80.0-100.0 [facility] Comment on above: Order Comment: Speci men Type: BLOOD SPECIMENOrdering Facility: [facility] Address: [address] [address] Performed By: #### 5 8410-2 ####[facility] LABORATORYCLIA [id number] [address] Nucleated RBC (Bld) [#/Vol] 10*3/uL Normal <0.01 [facility] Comment on above: Order Comment: Speci men Type: BLOOD SPECIMENOrdering Facility: [facility] Address: [address] [place] [address] Performed By: #### 5 8410-2 ####[facility] LABORATORYCLIA [id number] [address] [place] Platelet mean volume (Bld) [Entitic vol] 11.6 fL Normal 9.0-12.7 [facility] Comment on above: Order Comment: Speci men Type: BLOOD SPECIMENOrdering Facility: [facility] Address: [address] [place] [address] Performed By: #### 5 8410-2 ####[facility] LABORATORYCLIA [id number] [address] Platelets (Bld) [#/Vol] 347 10*3/uL Normal 150-400 [facility] Comment on above: Order Comment: Speci men Type: BLOOD SPECIMENOrdering Facility: [facility] Address: [address] [place] [address] Performed By: #### 5 8410-2 ####[facility] LABORATORYCLIA [id number] [address] RBC (Bld) [#/Vol] 3.19 10*6/uL Low 4.20-6.00 [facility] Comment on above: Order Comment: Speci men Type: BLOOD SPECIMENOrdering Facility: [facility] Address: [address] [place] [address] Performed By: #### 5 8410-2 ####[facility] LABORATORYCLIA [id number] [address] [place] WBC (Bld) [#/Vol] 10.29 10*3/uL Normal 3.70-11.00 [facility] Comment on above: Order Comment: Speci men Type: BLOOD SPECIMENOrdering Facility: [facility] Address: [address] [place] [address] Performed By: #### 5 8410-2 ####[facility] LABORATORYCLIA [id number] [address] [facility] CONSULT PROGon 06-21-2021 CONSULT PROG Normal [facility] CONSULT PROG Normal [facility] Magnesium SerPl-mCncon 06-21 Magnesium [Mass/Vol] 2.5 mg/dL High 1.7-2.3 [facility] Comment on above: Order Comment: Speci men Type: BLOOD SPECIMENOrdering Facility: [facility] Address: [address] [place] [address] Performed By: #### 2 4321-2, 01717-3 ####[facility] LABORATORYCLIA [id number] [place] [address] [place] NUTRITIONon 06-21-2021 NUTRITION Normal [facility] XR CHEST 1V FRONTALon 2021 XR CHEST 1V FRONTAL Normal [facility] aPTT PPPon 06-21-2021 aPTT Coag (PPP) [Time] 68.5 s High 23.0-32.4 [facility] Comment on above: Order Comment: Speci men Type: BLOOD SPECIMENOrdering Facility: [facility] Address: [address] [place] [address] Performed By: #### 1 4979-9 ####[facility] LABORATORYCLIA [id number] [address] aPTT Coag (PPP) [Time] 57.8 s High 23.0-32.4 [facility] Comment on above: Order Comment: Speci men Type: BLOOD SPECIMENOrdering Facility: [facility] Address: [address] [place] [address] Performed By: #### 1 4979-9 ####[facility] LABORATORYCLIA [id number] [place] [address] [place] Basic metabolic 2000 panelon 06-20-2021 Anion gap [Moles/Vol] 9 mmol/L Normal 9-18 [facility] Comment on above: Order Comment: Speci men Type: BLOOD SPECIMENOrdering Facility: [facility] Address: [address] [place] [address] Performed By: #### 2 4321-2, ####[facility] LABORATORYCLIA [id number] [place] [address] [place] Calcium [Mass/Vol] 8.3 mg/dL Low 8.5-10.2 [facility] Comment on above: Order Comment: Speci men Type: BLOOD SPECIMENOrdering Facility: [facility] Address: [address] [place] [address] Performed By: #### 2 2, ####[facility] LABORATORYCLIA [id number] [address] [place] Chloride [Moles/Vol] 111 mmol/L High 97-105 [facility] Comment on above: Order Comment: Speci men Type: BLOOD SPECIMENOrdering Facility: [facility] Address: [address] [place] [address] Performed By: #### 2 2, ####[facility] LABORATORYCLIA [id number] [place] [address] [place] CO2 [Moles/Vol] 24 mmol/L Normal 22-30 [facility] Comment on above: Order Comment: Speci men Type: BLOOD SPECIMENOrdering Facility: [facility] Address: [address] [place] [address] Performed By: #### 2 2, ####[facility] LABORATORYCLIA [id number] [place] [address] [place] Creatinine [Mass/Vol] 0.64 mg/dL Low 0.73-1.22 [facility] Comment on above: Order Comment: Johncara feldman Type: BLOOD SPECIMENOrdering Facility: [facility] Address: [address] [id number] Performed By: #### 2 4321-2, ####[facility] LABORATORYCLIA [id number] [place] [address] [place] GFR/1.73 sq M.predicted MDRD (S/P/Bld) [Vol rate/Area] mL/min/{1.73_m2} Normal [facility] Comment on above: Order Comment: Johncara feldman Type: BLOOD SPECIMENOrdering Facility: [facility] Address: [address] [phone] Result Comment: >60e GFR (Estimated GFR) Units [...] actual GFR. Performed By: #### 2 4321-2, ####[facility] LABORATORYCLIA [id number] [place] [address] [place] Glucose [Mass/Vol] 114 mg/dL High 74-99 [facility] Comment on above: Order Comment: Shira feldman Type: BLOOD SPECIMENOrdering Facility: [facility] Address: [address] [phone] Result Comment: The [place] [employer] (ADA) provides guidance for cutoff [...] Standards of Medical Care in Diabetes 2016, [place] [employer]. Diabetes Care. 2016.39(Suppl 1). Performed By: #### 2 4320-2, ####[facility] LABORATORYCLIA [id number] [place] [address] [place] Potassium [Moles/Vol] 4.1 mmol/L Normal 3.7-5.1 [facility] Comment on above: Order Comment: Shira feldman Type: BLOOD SPECIMENOrdering Facility: [facility] Address: [address] [place] [address] Performed By: #### 2 4320-06, ####[facility] LABORATORYCLIA [id number] [address] [place] [facility] Sodium [Moles/Vol] 144 mmol/L Normal 136-144 [facility] Comment on above: Order Comment: Shira feldman Type: BLOOD SPECIMENOrdering Facility: [facility] Address: [address] [place] [address] Performed By: #### 2 4320-06, ####[facility] LABORATORYCLIA [id number] [address] [place] Urea nitrogen [Mass/Vol] 27 mg/dL High 9-24 [facility] Comment on above: Order Comment: Shira feldman Type: BLOOD SPECIMENOrdering Facility: [facility] Address: [address] [place] [address] Performed By: #### 2 4320-06, ####[facility] LABORATORYCLIA [id number] [address] [place] CASE MANAGEMon 06-20-2021 CASE MANAGEM Normal [facility] CBC panel Auto (Bld)on 06-20 Erythrocyte distribution width (RBC) [Ratio] 15.9 % High 11.5-15.0 [facility] Comment on above: Order Comment: Shira feldman Type: BLOOD SPECIMENOrdering Facility: [facility] Address: [address] [place] [address] Performed By: #### 5 8410-2 ####[facility] LABORATORYCLIA [id number] [address] Hematocrit (Bld) [Volume fraction] 31.0 % Low 39.0-51.0 [facility] Comment on above: Order Comment: Speci men Type: BLOOD SPECIMENOrdering Facility: [facility] Address: [address] [place] [address] Performed By: #### 5 8410-2 ####[facility] LABORATORYCLIA [id number] [address] Hemoglobin (Bld) [Mass/Vol] 9.2 g/dL Low 13.0-17.0 [facility] Comment on above: Order Comment: Speci men Type: BLOOD SPECIMENOrdering Facility: [facility] Address: [address] [place] [address] Performed By: #### 5 8410-2 ####[facility] LABORATORYCLIA [id number] [address] MCH (RBC) [Entitic mass] 27.4 pg Normal 26.0-34.0 [facility] Comment on above: Order Comment: Speci men Type: BLOOD SPECIMENOrdering Facility: [facility] Address: [address] [place] [address] Performed By: #### 5 8410-2 ####[facility] LABORATORYCLIA [id number] [address] [place] MCHC (RBC) [Mass/Vol] 29.7 g/dL Low 30.5-36.0 [facility] Comment on above: Order Comment: Speci men Type: BLOOD SPECIMENOrdering Facility: [facility] Address: [address] [place] [address] Performed By: #### 5 8410-2 ####[facility] LABORATORYCLIA [id number] [address] MCV (RBC) [Entitic vol] 92.3 fL Normal 80.0-100.0 [facility] Comment on above: Order Comment: Speci men Type: BLOOD SPECIMENOrdering Facility: [facility] Address: [address] [address] Performed By: #### 5 8410-2 ####[facility] LABORATORYCLIA [id number] [address] Nucleated RBC (Bld) [#/Vol] 10*3/uL Normal <0.01 [facility] Comment on above: Order Comment: Speci men Type: BLOOD SPECIMENOrdering Facility: [facility] Address: [address] [place] [address] Performed By: #### 5 8410-2 ####[facility] LABORATORYCLIA [id number] [address] [place] Platelet mean volume (Bld) [Entitic vol] 11.5 fL Normal 9.0-12.7 [facility] Comment on above: Order Comment: Speci men Type: BLOOD SPECIMENOrdering Facility: [facility] Address: [address] [place] [address] Performed By: #### 5 8410-2 ####[facility] LABORATORYCLIA [id number] [address] Platelets (Bld) [#/Vol] 343 10*3/uL Normal 150-400 [facility] Comment on above: Order Comment: Speci men Type: BLOOD SPECIMENOrdering Facility: [facility] Address: [address] [address] Performed By: #### 5 8410-2 ####[facility] LABORATORYCLIA [id number] [address] [place] RBC (Bld) [#/Vol] 3.36 10*6/uL Low 4.20-6.00 [facility] Comment on above: Order Comment: Speci men Type: BLOOD SPECIMENOrdering Facility: [facility] Address: [address] [address] Performed By: #### 5 8410-2 ####[facility] LABORATORYCLIA [id number] [address] OF [facility] WBC (Bld) [#/Vol] 10.71 10*3/uL Normal 3.70-11.00 [facility] Comment on above: Order Comment: Speci men Type: BLOOD SPECIMENOrdering Facility: [facility] Address: [address] [place] [address] Performed By: #### 5 8410-2 ####[facility] LABORATORYCLIA [id number] [address] CONSULT PROGon 06-20-2021 CONSULT PROG Normal [facility] HEMOGLOBIN (HGB)on Hemoglobin (Bld) [Mass/Vol] 9.7 g/dL Low 13.0-17.0 [facility] Comment on above: Order Comment: Speci men Type: BLOOD SPECIMENOrdering Facility: [facility] Address: [address] [place] [address] Performed By: #### H GB ####[facility] LABORATORYCLIA [id number] [address] Magnesium SerPl-mCncon 06-20 Magnesium [Mass/Vol] 2.5 mg/dL High 1.7-2.3 [facility] Comment on above: Order Comment: Speci men Type: BLOOD SPECIMENOrdering Facility: [facility] Address: [address] [place] [address] Performed By: #### 2 4321-2, 42844-3 ####[facility] LABORATORYCLIA [id number] [address] [place] NURSING PROGon 06-20-2021 NURSING PROG Normal [facility] THERAPY NTon 06-20-2021 THERAPY NT Normal [facility] aPTT PPPon 06-20-2021 aPTT Coag (PPP) [Time] 93.5 s High 23.0-32.4 [facility] Comment on above: Order Comment: Speci men Type: BLOOD SPECIMENOrdering Facility: [facility] Address: [address] [place] [address] Performed By: #### 1 4979-9 ####[facility] LABORATORYCLIA [id number] [place] [address] [place] aPTT Coag (PPP) [Time] 47.1 s High 23.0-32.4 [facility] Comment on above: Order Comment: Speci men Type: BLOOD SPECIMENOrdering Facility: [facility] Address: [address] [place] [address] Performed By: #### 1 4979-9 ####[facility] LABORATORYCLIA [id number] [place] [address] [place] Basic metabolic 2000 panelon 06-19-2021 Anion gap [Moles/Vol] 7 mmol/L Low 9-18 [facility] Comment on above: Order Comment: Speci men Type: BLOOD SPECIMENOrdering Facility: [facility] Address: [address] [place] [address] Performed By: #### 2 4321-2 ####[facility] LABORATORYCLIA [id number] [place] [address] [place] Calcium [Mass/Vol] 8.1 mg/dL Low 8.5-10.2 [facility] Comment on above: Order Comment: Speci men Type: BLOOD SPECIMENOrdering Facility: [facility] Address: [address] [place] [address] Performed By: #### 2 4321-2 ####[facility] LABORATORYCLIA [id number] [place] [address] [place] Chloride [Moles/Vol] 111 mmol/L High 97-105 [facility] Comment on above: Order Comment: Speci men Type: BLOOD SPECIMENOrdering Facility: [facility] Address: [address] [place] [address] Performed By: #### 2 4321-2 ####[facility]ORATORYCLIA [id number] [place] [address] [place] CO2 [Moles/Vol] 24 mmol/L Normal 22-30 [facility] Comment on above: Order Comment: Shira feldman Type: BLOOD SPECIMENOrdering Facility: [facility] Address: [address] [place] [address] Performed By: #### 2 4321-2 ####[facility] LABORATORYCLIA [id number] [place] [address] [place] Creatinine [Mass/Vol] 0.71 mg/dL Low 0.73-1.22 [facility] Comment on above: Order Comment: Shira feldman Type: BLOOD SPECIMENOrdering Facility: [facility] Address: [address] [place] [address] Performed By: #### 2 4321-2 ####[facility]OSPITALCLIA [id number] [address] [place] GFR/1.73 sq M.predicted MDRD (S/P/Bld) [Vol rate/Area] mL/min/{1.73_m2} Normal [facility] Comment on above: Order Comment: Shira feldman Type: BLOOD SPECIMENOrdering Facility: [facility] Address: [address] [place] [address] Result Comment: >60e GFR (Estimated GFR) Units [...] actual GFR. Performed By: #### 2 4321-2 ####[facility] LABORATORYCLIA [id number] [address] [place] Glucose [Mass/Vol] 110 mg/dL High 74-99 [facility] Comment on above: Order Comment: Shira feldman Type: BLOOD SPECIMENOrdering Facility: [facility] Address: [address] [place] [address] Result Comment: The [place] [employer] (ADA) provides guidance for cutoff [...] Standards of Medical Care in Diabetes 2016, [place] [employer]. Diabetes Care. 2016.39(Suppl 1). Performed By: #### 2 4321-2 ####[facility] LABORATORYCLIA [id number] [place] [address] [place] Potassium [Moles/Vol] 3.7 mmol/L Normal 3.7-5.1 [facility] Comment on above: Order Comment: Shira feldman Type: BLOOD SPECIMENOrdering Facility: [facility] Address: [address] [place] [address] Performed By: #### 2 4321-2 ####[facility] LABORATORYCLIA [id number] [place] [address] [place] Sodium [Moles/Vol] 142 mmol/L Normal 136-144 [facility] Comment on above: Order Comment: Shira feldman Type: BLOOD SPECIMENOrdering Facility: [facility] Address: [address] [address] Performed By: #### 2 4321-2 ####[facility] LABORATORYCLIA [id number] [place] [address] [place] Urea nitrogen [Mass/Vol] 26 mg/dL High 9-24 [facility] Comment on above: Order Comment: Shira francia Type: BLOOD SPECIMENOrdering Facility: [facility] Address: [address] [address] Performed By: #### 2 4321-2 ####[facility] LABORATORYCLIA [id number] [address] CBC panel Auto (Bld)on 06-19 Erythrocyte distribution width (RBC) [Ratio] 15.7 % High 11.5-15.0 [facility] Comment on above: Order Comment: Speci men Type: BLOOD SPECIMENOrdering Facility: [facility] Address: [address] [place] [address] Performed By: #### 5 8410-2 ####[facility] LABORATORYCLIA [id number] [address] Hematocrit (Bld) [Volume fraction] 30.9 % Low 39.0-51.0 [facility] Comment on above: Order Comment: Speci men Type: BLOOD SPECIMENOrdering Facility: [facility] Address: [address] [place] [address] Performed By: #### 5 8410-2 ####[facility] LABORATORYCLIA [id number] [address] Hemoglobin (Bld) [Mass/Vol] 9.5 g/dL Low 13.0-17.0 [facility] Comment on above: Order Comment: Speci men Type: BLOOD SPECIMENOrdering Facility: [facility] Address: [address] [place] [address] Performed By: #### 5 8410-2 ####[facility] LABORATORYCLIA [id number] [address] MCH (RBC) [Entitic mass] 28.4 pg Normal 26.0-34.0 [facility] Comment on above: Order Comment: Speci men Type: BLOOD SPECIMENOrdering Facility: [facility] Address: [address] [place] [address] Performed By: #### 5 8410-2 ####[facility] LABORATORYCLIA [id number] [address] MCHC (RBC) [Mass/Vol] 30.7 g/dL Normal 30.5-36.0 [facility] Comment on above: Order Comment: Speci men Type: BLOOD SPECIMENOrdering Facility: [facility] Address: [address] [place] [address] Performed By: #### 5 8410-2 ####[facility] LABORATORYCLIA [id number] [address] [place] [facility] MCV (RBC) [Entitic vol] 92.2 fL Normal 80.0-100.0 [facility] Comment on above: Order Comment: Speci men Type: BLOOD SPECIMENOrdering Facility: [facility] Address: [address] [place] [address] Performed By: #### 5 8410-2 ####[facility] LABORATORYCLIA [id number] [address] [place] Nucleated RBC (Bld) [#/Vol] 10*3/uL Normal <0.01 [facility] Comment on above: Order Comment: Speci men Type: BLOOD SPECIMENOrdering Facility: [facility] Address: [address] [place] [address] Performed By: #### 5 8410-2 ####[facility] LABORATORYCLIA [id number] [address] [place] Platelet mean volume (Bld) [Entitic vol] 11.7 fL Normal 9.0-12.7 [facility] Comment on above: Order Comment: Speci men Type: BLOOD SPECIMENOrdering Facility: [facility] Address: [address] [place], [place] [address] Performed By: #### 5 8410-2 ####[facility] LABORATORYCLIA [id number] [address] [place] Platelets (Bld) [#/Vol] 323 10*3/uL Normal 150-400 [facility] Comment on above: Order Comment: Speci men Type: BLOOD SPECIMENOrdering Facility: [facility] Address: [address] [place], [place] [address] Performed By: #### 5 8410-2 ####[facility] LABORATORYCLIA [id number] [address] [place] [facility] RBC (Bld) [#/Vol] 3.35 10*6/uL Low 4.20-6.00 [facility] Comment on above: Order Comment: Speci men Type: BLOOD SPECIMENOrdering Facility: [facility] Address: [address] [place] [address] Performed By: #### 5 8410-2 ####[facility] LABORATORYCLIA [id number] [address] [place] WBC (Bld) [#/Vol] 9.53 10*3/uL Normal 3.70-11.00 [facility] Comment on above: Order Comment: Speci men Type: BLOOD SPECIMENOrdering Facility: [facility] Address: [address] [place] [address] Performed By: #### 5 8410-2 ####[facility]PITALCLIA [id number] [address] [place] HEMOGLOBIN (HGB)on Hemoglobin (Bld) [Mass/Vol] 9.7 g/dL Low 13.0-17.0 [facility] Comment on above: Order Comment: Speci men Type: BLOOD SPECIMENOrdering Facility: [facility] Address: [address] [place] [address] Performed By: #### H GB ####[facility] LABORATORYCLIA [id number] [address] Magnesium SerPl-mCncon 06-19 Magnesium [Mass/Vol] 2.5 mg/dL High 1.7-2.3 [facility] Comment on above: Order Comment: Speci men Type: BLOOD SPECIMENOrdering Facility: [facility] Address: [address] [place] [address] Performed By: #### 1 9123-9, 2777-1 ####[facility] LABORATORYCLIA [id number] [address] [place] NURSING PROGon 06-19-2021 NURSING PROG Normal [facility] Phosphate SerPl-mCncon 06-19 Phosphate [Mass/Vol] 2.6 mg/dL Low 2.7-4.8 [facility] Comment on above: Order Comment: Speci men Type: BLOOD SPECIMENOrdering Facility: [facility] Address: [address] [place] [address] Performed By: #### 1 9123-9, 2777-1 ####[facility] LABORATORYCLIA [id number] [address] aPTT PPPon 06-19-2021 aPTT Coag (PPP) [Time] 61.9 s High 23.0-32.4 [facility] Comment on above: Order Comment: Speci men Type: BLOOD SPECIMENOrdering Facility: [facility] Address: [address] [place] [address] Performed By: #### 1 4979-9 ####[facility] LABORATORYCLIA [id number] [address] aPTT Coag (PPP) [Time] 68.6 s High 23.0-32.4 [facility] Comment on above: Order Comment: Speci men Type: BLOOD SPECIMENOrdering Facility: [facility] Address: [address] [place] [address] Performed By: #### 1 4979-9 ####[facility] LABORATORYCLIA [id number] [address] aPTT Coag (PPP) [Time] 83.2 s High 23.0-32.4 [facility] Comment on above: Order Comment: Speci men Type: BLOOD SPECIMENOrdering Facility: [facility] Address: [address] [place] [address] Performed By: #### 1 4979-9 ####[facility] LABORATORYCLIA [id number] [address] [place] Basic metabolic 2000 panelon 06-18-2021 Anion gap [Moles/Vol] 7 mmol/L Low 9-18 [facility] Comment on above: Order Comment: Speci men Type: BLOOD SPECIMENOrdering Facility: [facility] Address: [address] [place] [address] Performed By: #### 2 4321-2, , 2776-05 ####[facility] LABORATORYCLIA [id number] [place] [address] [place] Calcium [Mass/Vol] 8.2 mg/dL Low 8.5-10.2 [facility] Comment on above: Order Comment: Speci men Type: BLOOD SPECIMENOrdering Facility: [facility] Address: [address] [place] [address] Performed By: #### 2 4321-2, , 2776-05 ####[facility] LABORATORYCLIA [id number] [place] [address] [place] Chloride [Moles/Vol] 115 mmol/L High 97-105 [facility] Comment on above: Order Comment: Speci men Type: BLOOD SPECIMENOrdering Facility: [facility] Address: [address] [place] [address] Performed By: #### 2 4321-2, , 2776-05 ####[facility] LABORATORYCLIA [id number] [place] [address] [place] CO2 [Moles/Vol] 23 mmol/L Normal 22-30 [facility] Comment on above: Order Comment: Speci men Type: BLOOD SPECIMENOrdering Facility: [facility] Address: [address] [place] [address] Performed By: #### 2 4321-2, , 2776-05 ####[facility] LABORATORYCLIA [id number] [place] [address] [place] Creatinine [Mass/Vol] 0.70 mg/dL Low 0.73-1.22 [facility] Comment on above: Order Comment: Speci men Type: BLOOD SPECIMENOrdering Facility: [facility] Address: [address] [id number] Performed By: #### 2 4321-2, 82069-0, 2776-05 ####[facility] [id number] [place] [address] [place] GFR/1.73 sq M.predicted MDRD (S/P/Bld) [Vol rate/Area] mL/min/{1.73_m2} Normal [facility] Comment on above: Order Comment: Shira feldman Type: BLOOD SPECIMENOrdering Facility: [facility] Address: [address] [place], [place] [id number] Result Comment: >60e GFR (Estimated GFR) Units [...] actual GFR. Performed By: #### 2 4321-2, 32174-1, 2776-05 ####[facility] [id number] [place] [address] [place] Glucose [Mass/Vol] 105 mg/dL High 74-99 [facility] Comment on above: Order Comment: Shira feldman Type: BLOOD SPECIMENOrdering Facility: [facility] Address: [address] [id number] Result Comment: The [place] [employer] (ADA) provides guidance for cutoff [...] Standards of Medical Care in Diabetes 2016, [place] [employer]. Diabetes Care. 2016.39(Suppl 1). Performed By: #### 2 4321-2, , 2776-05 ####[facility] LABORATORYCLIA [id number] [place] [address] [place] Potassium [Moles/Vol] 4.1 mmol/L Normal 3.7-5.1 [facility] Comment on above: Order Comment: Johni men Type: BLOOD SPECIMENOrdering Facility: [facility] Address: [address] [place] [address] Performed By: #### 2 4321-2, , 2776-05 ####[facility] LABORATORYCLIA [id number] [place] [address] [place] Sodium [Moles/Vol] 145 mmol/L High 136-144 [facility] Comment on above: Order Comment: Johni francia Type: BLOOD SPECIMENOrdering Facility: [facility] Address: [address] [place] [address] Performed By: #### 2 4321-2, , 2776-05 ####[facility] LABORATORYCLIA [id number] [place] [address] [place] Urea nitrogen [Mass/Vol] 27 mg/dL High 9-24 [facility] Comment on above: Order Comment: Johni men Type: BLOOD SPECIMENOrdering Facility: [facility] Address: [address] [place] [address] Performed By: #### 2 4321-2, , 2776-05 ####[facility] LABORATORYCLIA [id number] [place] [address] [place] CALCIUM IONIZED Bon 06-18-19 22 Calcium.ionized (BldV) [Mass/Vol] 1.22 mmol/L Normal 1.08-1.30 [facility] Comment on above: Order Comment: Speci men Type: BLOOD SPECIMENOrdering Facility: [facility] Address: [address] [place] [address] Performed By: #### I CA ####[facility] LABORATORYCLIA [id number] [address] Calcium.ionized adjusted to pH 7.4 (Bld) [Moles/Vol] 1.23 mmol/L Normal 1.08-1.30 [facility] Comment on above: Order Comment: Speci men Type: BLOOD SPECIMENOrdering Facility: [facility] Address: [address] [place] [address] Performed By: #### I CA ####[facility] LABORATORYCLIA [id number] [address] CBC panel Auto (Bld)on 06-18 Erythrocyte distribution width (RBC) [Ratio] 15.8 % High 11.5-15.0 [facility] Comment on above: Order Comment: Speci men Type: BLOOD SPECIMENOrdering Facility: [facility] Address: [address] [place] [address] Performed By: #### 5 8410-2 ####[facility] LABORATORYCLIA [id number] [address] [place] Hematocrit (Bld) [Volume fraction] 29.5 % Low 39.0-51.0 [facility] Comment on above: Order Comment: Speci men Type: BLOOD SPECIMENOrdering Facility: [facility] Address: [address] [place] [address] Performed By: #### 5 8410-2 ####[facility] LABORATORYCLIA [id number] [address] [place] Hemoglobin (Bld) [Mass/Vol] 8.8 g/dL Low 13.0-17.0 [facility] Comment on above: Order Comment: Speci men Type: BLOOD SPECIMENOrdering Facility: [facility] Address: [address] [place] [address] Performed By: #### 5 8410-2 ####[facility] LABORATORYCLIA [id number] [address] MCH (RBC) [Entitic mass] 27.4 pg Normal 26.0-34.0 [facility] Comment on above: Order Comment: Speci men Type: BLOOD SPECIMENOrdering Facility: [facility] Address: [address] [place] [address] Performed By: #### 5 8410-2 ####[facility] LABORATORYCLIA [id number] [address] MCHC (RBC) [Mass/Vol] 29.8 g/dL Low 30.5-36.0 [facility] Comment on above: Order Comment: Speci men Type: BLOOD SPECIMENOrdering Facility: [facility] Address: [address] [place] [address] Performed By: #### 5 8410-2 ####[facility] LABORATORYCLIA [id number] [address] MCV (RBC) [Entitic vol] 91.9 fL Normal 80.0-100.0 [facility] Comment on above: Order Comment: Speci men Type: BLOOD SPECIMENOrdering Facility: [facility] Address: [address] [place] [address] Performed By: #### 5 8410-2 ####[facility] LABORATORYCLIA [id number] [address] Nucleated RBC (Bld) [#/Vol] 10*3/uL Normal <0.01 [facility] Comment on above: Order Comment: Speci men Type: BLOOD SPECIMENOrdering Facility: [facility] Address: [address] [place] [address] Performed By: #### 5 8410-2 ####[facility] LABORATORYCLIA [id number] [address] Platelet mean volume (Bld) [Entitic vol] 11.9 fL Normal 9.0-12.7 [facility] Comment on above: Order Comment: Speci men Type: BLOOD SPECIMENOrdering Facility: [facility] Address: [address] [place] [address] Performed By: #### 5 8410-2 ####[facility] LABORATORYCLIA [id number] [address] Platelets (Bld) [#/Vol] 291 10*3/uL Normal 150-400 [facility] Comment on above: Order Comment: Speci men Type: BLOOD SPECIMENOrdering Facility: [facility] Address: [address] [place] [address] Performed By: #### 5 8410-2 ####[facility] LABORATORYCLIA [id number] [address] [facility] RBC (Bld) [#/Vol] 3.21 10*6/uL Low 4.20-6.00 [facility] Comment on above: Order Comment: Speci men Type: BLOOD SPECIMENOrdering Facility: [facility] Address: [address] [place] [address] Performed By: #### 5 8410-2 ####[facility] LABORATORYCLIA [id number] [address] WBC (Bld) [#/Vol] 10.19 10*3/uL Normal 3.70-11.00 [facility] Comment on above: Order Comment: Speci men Type: BLOOD SPECIMENOrdering Facility: [facility] Address: [address] [place] [address] Performed By: #### 5 8410-2 ####[facility] LABORATORYCLIA [id number] [address] FERRITIN BLDon 06-18-2021 Ferritin [Mass/Vol] 600.9 ng/mL High 30.3-565.7 [facility] Comment on above: Order Comment: Speci men Type: BLOOD SPECIMENOrdering Facility: [facility] Address: [address] [place] [address] Performed By: #### S ERFOL, IRON, FERR ####[facility] ASSOC[facility]ATION LABORATORYCLIA [id number] [address] [place] FOLATE SERUMon 06-18-2021 Folate [Mass/Vol] 14.3 ng/mL Normal >4.7 [facility] Comment on above: Order Comment: Speci men Type: BLOOD SPECIMENOrdering Facility: [facility] Address: [address] [place] [address] Performed By: #### S ERFOL, IRON, FERR ####[facility] ASSOCIATION LABORATORYCLIA [id number] [address] [place] Gas and Carbon monoxide pane l (BldV)on 06-18-2021 Base excess Calc (BldV) [Moles/Vol] 0.5 mmol/L Normal 0-2 [facility] Comment on above: Order Comment: Speci men Type: VENOUS BLOOD SPECIMENOrdering Facility: [facility] Address: [address] [place] [address] Performed By: #### 2 4344-4 ####[facility] [id number] [address] STATES OF [facility] Body temperature 97.34 [degF] Normal [facility] Comment on above: Order Comment: Speci men Type: VENOUS BLOOD SPECIMENOrdering Facility: [facility] Address: [address] [place] [address] Performed By: #### 2 4344-4 ####[facility] ASSOCIATION LABORATORYIA [id number] [address] [place] CALCIUM IONIZED, PH CORRECTED 1.26 mmol/L Normal 1.08-1.30 [facility] Comment on above: Order Comment: Speci men Type: VENOUS BLOOD SPECIMENOrdering Facility: [facility] Address: [address] [place] [address] Performed By: #### 2 4344-4 ####[facility] ASS[facility]IATION LABORATORYCLIA [id number] [place] [address] [place] Calcium.ionized (BldV) [Mass/Vol] 1.25 mmol/L Normal 1.08-1.30 [facility] Comment on above: Order Comment: Speci men Type: VENOUS BLOOD SPECIMENOrdering Facility: [facility] Address: [address] [place] [address] Performed By: #### 2 4344-4 ####[facility] ASSOCIATION LABORATORYCLIA [id number] [address] [place] Carboxyhemoglobin (BldV) [Mass fraction] 1.5 % Normal 0.0-2.0 [facility] Comment on above: Order Comment: Speci men Type: VENOUS BLOOD SPECIMENOrdering Facility: [facility] Address: [address] [place] [address] Result Comment: Carb oxyhemoglobin Reference Range for Smokers: 2.0-8.0% Performed By: #### 2 4344-4 ####[facility] ASSOCIATION LABORATORYCLIA [id number] [address] [place] CO2 (BldV) [Partial pressure] 38 mm[Hg] Low 42-55 [facility] Comment on above: Order Comment: Speci men Type: VENOUS BLOOD SPECIMENOrdering Facility: [facility] Address: [address] [place] [address] Performed By: #### 2 4344-4 ####[facility] ASSOCIATION LABORATORYCLIA [id number] [address] [place] CO2 [Moles/Vol] 22.9 mmol/L Low 25-29 [facility] Comment on above: Order Comment: Speci men Type: VENOUS BLOOD SPECIMENOrdering Facility: [facility] Address: [address] [place] [address] Performed By: #### 2 4344-4 ####[facility] ASSOCIATION LABORATORYCLIA [id number] [address] [place] CO2 adjusted to patient's actual temperature (BldV) [Partial pressure] 37 mmHg Low 42-55 [facility] Comment on above: Order Comment: Speci men Type: VENOUS BLOOD SPECIMENOrdering Facility: [facility] Address: [address] [place] [address] Performed By: #### 2 4344-4 ####[facility]ORATORYCLIA [id number] [address] [place] Glucose [Mass/Vol] 103 mg/dL Normal 60-105 [facility] Comment on above: Order Comment: Speci men Type: VENOUS BLOOD SPECIMENOrdering Facility: [facility] Address: [address] [place] [address] Performed By: #### 2 4344-4 ####[facility] ASS[facility]IATION LABORATORYCLIA [id number] [address] [place] HCO3 (Bld) [Moles/Vol] 24.4 mmol/L Normal 24-28 [facility] Comment on above: Order Comment: Speci men Type: VENOUS BLOOD SPECIMENOrdering Facility: [facility] Address: [address] [place] [address] Performed By: #### 2 4344-4 ####[facility] ASSOCIATION LABORATORYCLIA [id number] [address] Hematocrit (Bld) [Volume fraction] 28.7 % Low 39.0-51.0 [facility] Comment on above: Order Comment: Speci men Type: VENOUS BLOOD SPECIMENOrdering Facility: [facility] Address: [address] [place] [address] Performed By: #### 2 4344-4 ####[facility] ASSOCIATION LABORATORYCLIA [id number] [address] [place] Hemoglobin (Bld) [Mass/Vol] 9.3 g/dL Low 13.0-17.0 [facility] Comment on above: Order Comment: Speci men Type: VENOUS BLOOD SPECIMENOrdering Facility: [facility] Address: [address] [place] [address] Performed By: #### 2 4344-4 ####[facility] ASSOCIATION LABORATORYCLIA [id number] [address] [place] Methemoglobin (Bld) [Mass fraction] % Normal 0.0-1.5 [facility] Comment on above: Order Comment: Speci men Type: VENOUS BLOOD SPECIMENOrdering Facility: [facility] Address: [address] [address] Performed By: #### 2 4344-4 ####[facility]ORATORYCLIA [id number] [address] [place] O2 THERAPY Ventilator Normal [facility] Comment on above: Order Comment: Speci men Type: VENOUS BLOOD SPECIMENOrdering Facility: [facility] Address: [address] [address] Performed By: #### 2 4344-4 ####[facility]ORATORYCLIA [id number] [address] [place] Oxygen (BldV) [Partial pressure] 37 mm[Hg] Normal 35-45 [facility] Comment on above: Order Comment: Speci men Type: VENOUS BLOOD SPECIMENOrdering Facility: [facility] Address: [address] [place] [address] Performed By: #### 2 4344-4 ####[facility]ORATORYCLIA [id number] [address] Oxygen adjusted to patient's actual temperature (BldV) [Partial pressure] 35.1 mmHg Normal 35-45 [facility] Comment on above: Order Comment: Speci men Type: VENOUS BLOOD SPECIMENOrdering Facility: [facility] Address: [address] [place] [address] Performed By: #### 2 4344-4 ####[facility]ORATORYCLIA [id number] [address] [place] Oxygen saturation in Blood 67.1 % Normal 60-85 [facility] Comment on above: Order Comment: Speci men Type: VENOUS BLOOD SPECIMENOrdering Facility: [facility] Address: [address] [address] Performed By: #### 2 4344-4 ####[facility]ORATORYCLIA [id number] [address] [place] Oxyhemoglobin (BldV) [Mass fraction] 66 % Normal 60-85 [facility] Comment on above: Order Comment: Speci men Type: VENOUS BLOOD SPECIMENOrdering Facility: [facility] Address: [address] [place] [address] Performed By: #### 2 4344-4 ####[facility] LABORATORYCLIA [id number] [address] [place] pH (BldV) 7.42 [pH] Normal 7.32-7.42 [facility] Comment on above: Order Comment: Speci men Type: VENOUS BLOOD SPECIMENOrdering Facility: [facility] Address: [address] [place] [address] Performed By: #### 2 4344-4 ####[facility] ASSOCIATION LABORATORYCLIA [id number] [address] [place] pH adjusted to patient's actual temperature (BldV) 7.43 High 7.32-7.42 [facility] Comment on above: Order Comment: Speci men Type: VENOUS BLOOD SPECIMENOrdering Facility: [facility] Address: [address] [place] [address] Performed By: #### 2 4344-4 ####[facility] ASSOCIATION LABORATORYCLIA [id number] [place] [address] [place] Potassium [Moles/Vol] 4.0 mmol/L Normal 3.5-5.0 [facility] Comment on above: Order Comment: Speci men Type: VENOUS BLOOD SPECIMENOrdering Facility: [facility] Address: [address] [place] [address] Performed By: #### 2 4344-4 ####[facility] ASSOCIATION LABORATORYCLIA [id number] [place] [address] [place] Sodium [Moles/Vol] 146 mmol/L High 136-144 [facility] Comment on above: Order Comment: Speci men Type: VENOUS BLOOD SPECIMENOrdering Facility: [facility] Address: [address] [place] [address] Performed By: #### 2 4344-4 ####[facility] ASSOCIATION LABORATORYCLIA [id number] [address] [place] HEMOGLOBIN (HGB)on Hemoglobin (Bld) [Mass/Vol] 9.2 g/dL Low 13.0-17.0 [facility] Comment on above: Order Comment: Speci men Type: BLOOD SPECIMENOrdering Facility: [facility] Address: [address] [place] [address] Performed By: #### H GB ####[facility] ASS[facility]IATION LABORATORYCLIA [id number] [address] [place] IRON + TIBCon 06-18-2021 Iron [Mass/Vol] 27 ug/dL Low 41-186 [facility] Comment on above: Order Comment: Speci men Type: BLOOD SPECIMENOrdering Facility: [facility] Address: [address] [place] [address] Performed By: #### S ERFOL, IRON, FERR ####[facility] [id number] [address] [place] Iron binding capacity [Mass/Vol] 141 ug/dL Low 232-386 [facility] Comment on above: Order Comment: Speci men Type: BLOOD SPECIMENOrdering Facility: [facility] Address: [address] [place] [address] Performed By: #### S ERFOL, IRON, FERR ####[facility] ASSOCIATION LABORATORYIA [id number] [address] [place] Iron saturation [Mass fraction] 19 % Normal 15-57 [facility] Comment on above: Order Comment: Speci men Type: BLOOD SPECIMENOrdering Facility: [facility] Address: [address] [place] [address] Performed By: #### S ERFOL, IRON, FERR ####[facility] ASSOCIATION LABORATORYCLIA [id number] [place] [address] [place] Magnesium SerPl-mCncon 06-18 Magnesium [Mass/Vol] 2.5 mg/dL High 1.7-2.3 [facility] Comment on above: Order Comment: Speci men Type: BLOOD SPECIMENOrdering Facility: [facility] Address: [address] [place] [address] Performed By: #### 2 4321-2, 34785-7, 27711-04 ####[facility] ASS[facility] LABORATORYCLIA [id number] [address] NURSING PROGon 06-18-2021 NURSING PROG Normal [facility] Phosphate SerPl-mCncon 06-18 Phosphate [Mass/Vol] 3.0 mg/dL Normal 2.7-4.8 [facility] Comment on above: Order Comment: Speci men Type: BLOOD SPECIMENOrdering Facility: [facility] Address: [address] [place] [address] Performed By: #### 2 4321-2, , 2776-05 ####[facility] ASS[facility]IATION LABORATORYCLIA [id number] [address] THERAPY NTon 06-18-2021 THERAPY NT Normal [facility] aPTT PPPon 06-18-2021 aPTT Coag (PPP) [Time] 43.0 s High 23.0-32.4 [facility] Comment on above: Order Comment: Speci men Type: BLOOD SPECIMENOrdering Facility: [facility] Address: [address] [place] [address] Performed By: #### 1 4979-9 ####[facility] ASSOCIATION LABORATORYCLIA [id number] [address] [place] aPTT Coag (PPP) [Time] 60.6 s High 23.0-32.4 [facility] Comment on above: Order Comment: Speci men Type: BLOOD SPECIMENOrdering Facility: [facility] Address: [address] [place] [address] Performed By: #### 1 4979-9 ####[facility] ASSOCIATION LABORATORYCLIA [id number] [address] aPTT Coag (PPP) [Time] 46.4 s High 23.0-32.4 [facility] Comment on above: Order Comment: Speci men Type: BLOOD SPECIMENOrdering Facility: [facility] Address: [address] [place] [address] Performed By: #### 1 4979-9 ####[facility] ASS[facility]IATION LABORATORYCLIA [id number] [place] [address] [place] Basic metabolic 2000 panelon 06-17-2021 Anion gap [Moles/Vol] 7 mmol/L Low 9-18 [facility] Comment on above: Order Comment: Speci men Type: BLOOD SPECIMENOrdering Facility: [facility] Address: [address] [place] [address] Performed By: #### 2 951-2, , 2776-05, 24567-0 ####[facility] ASS[facility] LABORATORYCLIA [id number] [place] [address] [place] Calcium [Mass/Vol] 8.1 mg/dL Low 8.5-10.2 [facility] Comment on above: Order Comment: Speci men Type: BLOOD SPECIMENOrdering Facility: [facility] Address: [address] [place] [address] Performed By: #### 2 951-2, , 2776-05, 35944-5 ####[facility] ASS[facility] LABORATORYCLIA [id number] [place] [address] [place] Chloride [Moles/Vol] 113 mmol/L High 97-105 [facility] Comment on above: Order Comment: Speci men Type: BLOOD SPECIMENOrdering Facility: [facility] Address: [address] [place] [address] Performed By: #### 2 951-2, , 2776-05, 95448-9 ####[facility] LABORATORYCLIA [id number] [place] [address] [place] CO2 [Moles/Vol] 25 mmol/L Normal 22-30 [facility] Comment on above: Order Comment: Speci men Type: BLOOD SPECIMENOrdering Facility: [facility] Address: [facility] [address] [place] [id number] Performed By: #### 2 951-2, 17405-1, 2776-05, ####[facility] LABORATORYCLIA [id number] [place] [address] [place] Creatinine [Mass/Vol] 0.70 mg/dL Low 0.73-1.22 [facility] Comment on above: Order Comment: Speci men Type: BLOOD SPECIMENOrdering Facility: [facility] Address: [address] [place], [place] [address] [address] Performed By: #### 2 951-2, , 2776-05, ####[facility]PITALCLIA [id number] [place] [address] [place] GFR/1.73 sq M.predicted MDRD (S/P/Bld) [Vol rate/Area] mL/min/{1.73_m2} Normal [facility] Comment on above: Order Comment: [facility] Type: BLOOD SPECIMENOrdering Facility: [facility] Address: [facility] [place] [place] [address] Result Comment: >60e GFR (Estimated GFR) Units [...] actual GFR. Performed By: #### 2 951-2, 54587-8, 2776-05, ####[facility] ASS[facility] LABORATORYCLIA [id number] [place] [address] [place] Glucose [Mass/Vol] 122 mg/dL High 74-99 [facility] Comment on above: Order Comment: Speci men Type: BLOOD SPECIMENOrdering Facility: [facility] Address: [facility] [place] [place] [id number] Result Comment: The [place] [employer] (ADA) provides guidance for cutoff [...] Standards of Medical Care in Diabetes 2016, [place] [employer]. Diabetes Care. 2016.39(Suppl 1). Performed By: #### 2 951-2, 70729-7, 7-1, 33408-7 ####[facility] ASS[facility] LABORATORYCLIA [id number] [place] [address] [place] Potassium [Moles/Vol] 3.5 mmol/L Low 3.7-5.1 [facility] Comment on above: Order Comment: Shira francia Type: BLOOD SPECIMENOrdering Facility: [facility] Address: [facility] [place] [address] Performed By: #### 2 951-2, 41328-8, 2776-1, 56326-8 ####[facility] LABORATORYCLIA [id number] [place] [address] [place] Urea nitrogen [Mass/Vol] 27 mg/dL High 9-24 [facility] Comment on above: Order Comment: Shira francia Type: BLOOD SPECIMENOrdering Facility: [facility] Address: [address] [id number] Performed By: #### 2 951-2, , 2776-1, 59090-4 ####[facility] LABORATORYCLIA [id number] [place] [address] [place] CASE MANAGEMon 06-17-2021 CASE MANAGEM Normal [facility] CBC panel Auto (Bld)on 06-17 Erythrocyte distribution width (RBC) [Ratio] 15.9 % High 11.5-15.0 [facility] Comment on above: Order Comment: Speci men Type: BLOOD SPECIMENOrdering Facility: [facility] Address: [address] [place] [address] Performed By: #### 5 8410-2 ####[facility] LABORATORYCLIA [id number] [address] Hematocrit (Bld) [Volume fraction] 28.9 % Low 39.0-51.0 [facility] Comment on above: Order Comment: Speci men Type: BLOOD SPECIMENOrdering Facility: [facility] Address: [address] [place] [address] Performed By: #### 5 8410-2 ####[facility] LABORATORYCLIA [id number] [address] OF [facility] Hemoglobin (Bld) [Mass/Vol] 8.8 g/dL Low 13.0-17.0 [facility] Comment on above: Order Comment: Speci men Type: BLOOD SPECIMENOrdering Facility: [facility] Address: [address] [place] [address] Performed By: #### 5 8410-2 ####[facility] LABORATORYCLIA [id number] [address] STATES [facility] MCH (RBC) [Entitic mass] 28.4 pg Normal 26.0-34.0 [facility] Comment on above: Order Comment: Speci men Type: BLOOD SPECIMENOrdering Facility: [facility] Address: [address] [place] [address] Performed By: #### 5 8410-2 ####[facility] LABORATORYCLIA [id number] [address] MCHC (RBC) [Mass/Vol] 30.4 g/dL Low 30.5-36.0 [facility] Comment on above: Order Comment: Speci men Type: BLOOD SPECIMENOrdering Facility: [facility] Address: [address] [address] Performed By: #### 5 8410-2 ####[facility] LABORATORYCLIA [id number] [address] MCV (RBC) [Entitic vol] 93.2 fL Normal 80.0-100.0 [facility] Comment on above: Order Comment: Speci men Type: BLOOD SPECIMENOrdering Facility: [facility] Address: [address] [place] [address] Performed By: #### 5 8410-2 ####[facility] LABORATORYCLIA [id number] [address] Nucleated RBC (Bld) [#/Vol] 10*3/uL Normal <0.01 [facility] Comment on above: Order Comment: Speci men Type: BLOOD SPECIMENOrdering Facility: [facility] Address: [address] [place] [address] Performed By: #### 5 8410-2 ####[facility] LABORATORYCLIA [id number] [address] Platelet mean volume (Bld) [Entitic vol] 11.9 fL Normal 9.0-12.7 [facility] Comment on above: Order Comment: Speci men Type: BLOOD SPECIMENOrdering Facility: [facility] Address: [address] [place] [address] Performed By: #### 5 8410-2 ####[facility] LABORATORYCLIA [id number] [address] Platelets (Bld) [#/Vol] 257 10*3/uL Normal 150-400 [facility] Comment on above: Order Comment: Speci men Type: BLOOD SPECIMENOrdering Facility: [facility] Address: [address] [place] [address] Performed By: #### 5 8410-2 ####[facility] LABORATORYCLIA [id number] [address] [place] RBC (Bld) [#/Vol] 3.10 10*6/uL Low 4.20-6.00 [facility] Comment on above: Order Comment: Speci men Type: BLOOD SPECIMENOrdering Facility: [facility] Address: [address] [place] [address] Performed By: #### 5 8410-2 ####[facility] LABORATORYCLIA [id number] [place] [address] [place] WBC (Bld) [#/Vol] 10.54 10*3/uL Normal 3.70-11.00 [facility] Comment on above: Order Comment: Speci men Type: BLOOD SPECIMENOrdering Facility: [facility] Address: [address] [place] [address] Performed By: #### 5 8410-2 ####[facility] LABORATORYCLIA [id number] [address] OF [facility] HEMOGLOBIN (HGB)on 2 Hemoglobin (Bld) [Mass/Vol] 8.8 g/dL Low 13.0-17.0 [facility] Comment on above: Order Comment: Speci men Type: BLOOD SPECIMENOrdering Facility: [facility] Address: [address] [place] [address] Performed By: #### H GB ####[facility] LABORATORYCLIA [id number] [address] [place] Magnesium SerPl-mCncon 06-17 Magnesium [Mass/Vol] 2.5 mg/dL High 1.7-2.3 [facility] Comment on above: Order Comment: Speci men Type: BLOOD SPECIMENOrdering Facility: [facility] Address: [address] [place] [address] Performed By: #### 2 951-2, 36486-1, 2777-1, 97233-6 ####[facility] LABORATORYCLIA [id number] [address] [place] NURSING PROGon 06-17-2021 NURSING PROG Normal [facility] NURSING PROG Normal [facility] NURSING PROG Normal [facility] Phosphate SerPl-mCncon 06-17 Phosphate [Mass/Vol] 1.9 mg/dL Low 2.7-4.8 [facility] Comment on above: Order Comment: Speci men Type: BLOOD SPECIMENOrdering Facility: [facility] Address: [address] [place] [address] Performed By: #### 2 951-2, 85552-4, 2777-, 43484-9 ####[facility] LABORATORYCLIA [id number] [place] [address] [place] [facility] Sodium SerPl-sCncon 06-17-19 Sodium [Moles/Vol] 144 mmol/L Normal 136-144 [facility] Comment on above: Order Comment: Speci men Type: BLOOD SPECIMENOrdering Facility: [facility] Address: [address] [place] [address] Performed By: #### 2 951-2 ####[facility]ITAL[facility] [id number] [address] STATES [facility] Sodium [Moles/Vol] 145 mmol/L High 136-144 [facility] Comment on above: Order Comment: Speci men Type: BLOOD SPECIMENOrdering Facility: [facility] Address: [address] [place] [address] Performed By: #### 2 951-2, 65872-9, 2777, 55715-1 ####[facility] LABORATORYCLIA [id number] [address] [place] aPTT PPPon 06-17-2021 aPTT Coag (PPP) [Time] 55.8 s High 23.0-32.4 [facility] Comment on above: Order Comment: Speci men Type: BLOOD SPECIMENOrdering Facility: [facility] Address: [address] [place] [address] Performed By: #### 1 [id number] ####[facility] LABORATORYCLIA [id number] [address] [place] ARTERIAL BLOOD GASESon 06-16 Base excess Calc (Bld) [Moles/Vol] 3 mmol/L High 0-2 [facility] Comment on above: Order Comment: Speci men Type: ARTERIAL BLOOD SPECIMENOrdering Facility: [facility] Address: [address] [place] [address] Performed By: #### A LLBG ####[facility] LABORATORYCLIA [id number] [address] [place] Body temperature 99.14 [degF] Normal [facility] Comment on above: Order Comment: Speci men Type: ARTERIAL BLOOD SPECIMENOrdering Facility: [facility] Address: [address] [place] [address] Performed By: #### A LLBG ####[facility] LABORATORYCLIA [id number] [address] [place] CALCIUM IONIZED, PH CORRECTED 1.21 mmol/L Normal 1.08-1.30 [facility] Comment on above: Order Comment: Speci men Type: ARTERIAL BLOOD SPECIMENOrdering Facility: [facility] Address: [address] [place] [address] Performed By: #### A LLBG ####[facility] LABORATORYCLIA [id number] [address] [place] Calcium.ionized (BldV) [Mass/Vol] 1.17 mmol/L Normal 1.08-1.30 [facility] Comment on above: Order Comment: Speci men Type: ARTERIAL BLOOD SPECIMENOrdering Facility: [facility] Address: [address] [place] [address] Performed By: #### A LLBG ####[facility] LABORATORYCLIA [id number] [address] [place] Carboxyhemoglobin (BldA) [Mass fraction] 1.4 % Normal 0.0-2.0 [facility] Comment on above: Order Comment: Speci men Type: ARTERIAL BLOOD SPECIMENOrdering Facility: [facility] Address: [address] [place] [address] Result Comment: Carb oxyhemoglobin Reference Range for Smokers: 2.0-8.0% Performed By: #### A LLBG ####[facility]ORATORYCLIA [id number] [address] STATES OF [facility] CO2 (Bld) [Partial pressure] 38 mm Hg Normal 36-46 [facility] Comment on above: Order Comment: Speci men Type: ARTERIAL BLOOD SPECIMENOrdering Facility: [facility] Address: [address] [place] [address] Performed By: #### A LLBG ####[facility] LABORATORYCLIA [id number] [address] [place] CO2 [Moles/Vol] 24.5 mmol/L Normal 22-28 [facility] Comment on above: Order Comment: Speci men Type: ARTERIAL BLOOD SPECIMENOrdering Facility: [facility] Address: [address] [place] [address] Performed By: #### A LLBG ####[facility] LABORATORYCLIA [id number] [address] [place] CO2 adjusted to patient's actual temperature (Bld) [Partial pressure] 38 mmHg Normal 36-46 [facility] Comment on above: Order Comment: Speci men Type: ARTERIAL BLOOD SPECIMENOrdering Facility: [facility] Address: [address] [place] [address] Performed By: #### A LLBG ####[facility] LABORATORYCLIA [id number] [place] [address] [place] Glucose [Mass/Vol] 147 mg/dL High 60-105 [facility] Comment on above: Order Comment: Speci men Type: ARTERIAL BLOOD SPECIMENOrdering Facility: [facility] Address: [address] [place] [address] Performed By: #### A LLBG ####[facility]ORATORYCLIA [id number] [place] [address] [place] HCO3 (Bld) [Moles/Vol] 27 mmol/L High 22-26 [facility] Comment on above: Order Comment: Speci men Type: ARTERIAL BLOOD SPECIMENOrdering Facility: [facility] Address: [address] [place] [address] Performed By: #### A LLBG ####[facility] LABORATORYCLIA [id number] [address] Hematocrit (Bld) [Volume fraction] 31.8 % Low 39.0-51.0 [facility] Comment on above: Order Comment: Speci men Type: ARTERIAL BLOOD SPECIMENOrdering Facility: [facility] Address: [address] [place] [address] Performed By: #### A LLBG ####[facility] LABORATORYCLIA [id number] [address] [place] [facility] Hemoglobin (Bld) [Mass/Vol] 10.3 g/dL Low 13.0-17.0 [facility] Comment on above: Order Comment: Speci men Type: ARTERIAL BLOOD SPECIMENOrdering Facility: [facility] Address: [address] [place] [address] Performed By: #### A LLBG ####[facility] LABORATORYCLIA [id number] [address] Methemoglobin (Bld) [Mass fraction] 1.0 % Normal 0.0-1.5 [facility] Comment on above: Order Comment: Speci men Type: ARTERIAL BLOOD SPECIMENOrdering Facility: [facility] Address: [address] [place] [address] Performed By: #### A LLBG ####[facility] LABORATORYCLIA [id number] [address] [place] O2 THERAPY Ventilator Normal [facility] Comment on above: Order Comment: Speci men Type: ARTERIAL BLOOD SPECIMENOrdering Facility: [facility] Address: [address] [place] [address] Performed By: #### A LLBG ####[facility] LABORATORYCLIA [id number] [address] Oxygen (Bld) [Partial pressure] 78 mm Hg Low 85-95 [facility] Comment on above: Order Comment: Speci men Type: ARTERIAL BLOOD SPECIMENOrdering Facility: [facility] Address: [facility] [place] [address] Performed By: #### A LLBG ####[facility] LABORATORYCLIA [id number] [address] [place] Oxygen adjusted to patient's actual temperature (Bld) [Partial pressure] 79.7 mmHg Low 85-95 [facility] Comment on above: Order Comment: Speci men Type: ARTERIAL BLOOD SPECIMENOrdering Facility: [facility] Address: [address] [place] [address] Performed By: #### A LLBG ####[facility] LABORATORYCLIA [id number] [place] [address] [place] OXYGEN SATURATION, ARTERIAL 96 % Normal 95-98 [facility] Comment on above: Order Comment: Speci men Type: ARTERIAL BLOOD SPECIMENOrdering Facility: [facility] Address: [address] [place] [address] Performed By: #### A LLBG ####[facility] LABORATORYCLIA [id number] [address] [place] Oxyhemoglobin (BldA) [Mass fraction] 94 % Low 95-98 [facility] Comment on above: Order Comment: Speci men Type: ARTERIAL BLOOD SPECIMENOrdering Facility: [facility] Address: [address] [place] [address] Performed By: #### A LLBG ####[facility]ORATORYCLIA [id number] [place] [address] [place] pH (Bld) 7.47 [pH] High 7.35-7.45 [facility] Comment on above: Order Comment: Speci men Type: ARTERIAL BLOOD SPECIMENOrdering Facility: [facility] Address: [address] [place] [address] Performed By: #### A LLBG ####[facility]ORATORYCLIA [id number] [address] [place] pH adjusted to patient's actual temperature (Bld) 7.46 High 7.35-7.45 [facility] Comment on above: Order Comment: Speci men Type: ARTERIAL BLOOD SPECIMENOrdering Facility: [facility] Address: [address] [place] [address] Performed By: #### A LLBG ####[facility] LABORATORYCLIA [id number] [address] [place] Potassium [Moles/Vol] 3.7 mmol/L Normal 3.5-5.0 [facility] Comment on above: Order Comment: Speci men Type: ARTERIAL BLOOD SPECIMENOrdering Facility: [facility] Address: [address] [place] [address] Performed By: #### A LLBG ####[facility] LABORATORYCLIA [id number] [address] STATES [facility] Sodium [Moles/Vol] 155 mmol/L High 136-144 [facility] Comment on above: Order Comment: Speci men Type: ARTERIAL BLOOD SPECIMENOrdering Facility: [facility] Address: [address] [place] [address] Performed By: #### A LLBG ####[facility] LABORATORYCLIA [id number] [address] [place] Bacteria Spec Resp Culton Bacteria identified Respiratory culture Nom (Unsp spec) CULTURE, RESPIRATORY: Rare Normal respiratory chris present ORGANISM ID: 1 Few Yeast, not cryptococcus neoformans GRAM STAIN: No organisms seen Few Polymorphonuclear leukocytes Few Epithelial cells Abnormal [facility] Comment on above: Performed By: #### 3 2355-0 ####[facility] LABORATORYCLIA [id number] [place] [address] [place] Basic metabolic 2000 panelon 06-16-2021 Anion gap [Moles/Vol] 9 mmol/L Normal 9-18 [facility] Comment on above: Order Comment: Speci men Type: BLOOD SPECIMENOrdering Facility: [facility] Address: [address] [place], [place] [address] Performed By: #### 2 4321-2 ####[facility] LABORATORYCLIA [id number] [place] [address] [place] Calcium [Mass/Vol] 8.4 mg/dL Low 8.5-10.2 [facility] Comment on above: Order Comment: Speci men Type: BLOOD SPECIMENOrdering Facility: [facility] Address: [address] [place] [address] Performed By: #### 2 4321-2 ####[facility] LABORATORYCLIA [id number] [place] [address] [place] Chloride [Moles/Vol] 120 mmol/L High 97-105 [facility] Comment on above: Order Comment: Speci men Type: BLOOD SPECIMENOrdering Facility: [facility] Address: [address] [place] [address] Performed By: #### 2 4321-2 ####[facility] LABORATORYCLIA [id number] [place] [address] [place] CO2 [Moles/Vol] 27 mmol/L Normal 22-30 [facility] Comment on above: Order Comment: Speci men Type: BLOOD SPECIMENOrdering Facility: [facility] Address: [address] [place] [address] Performed By: #### 2 4321-2 ####[facility] LABORATORYCLIA [id number] [place] [address] [place] Creatinine [Mass/Vol] 0.75 mg/dL Normal 0.73-1.22 [facility] Comment on above: Order Comment: Speci men Type: BLOOD SPECIMENOrdering Facility: [facility] Address: [address] [place] [address] Performed By: #### 2 4321-2 ####[facility] LABORATORYCLIA [id number] [place] [address] [place] GFR/1.73 sq M.predicted MDRD (S/P/Bld) [Vol rate/Area] mL/min/{1.73_m2} Normal [facility] Comment on above: Order Comment: Shira feldman Type: BLOOD SPECIMENOrdering Facility: [facility] Address: [address] [place], [place] [address] Result Comment: >60e GFR (Estimated GFR) Units [...] actual GFR. Performed By: #### 2 4321-2 ####[facility] LABORATORYCLIA [id number] [place] [address] [place] Glucose [Mass/Vol] 160 mg/dL High 74-99 [facility] Comment on above: Order Comment: Johncara feldman Type: BLOOD SPECIMENOrdering Facility: [facility] Address: [address] [place], [place] [address] Result Comment: The [place] [employer] (ADA) provides guidance for cutoff [...] Standards of Medical Care in Diabetes 2016, [place] [employer]. Diabetes Care. 2016.39(Suppl 1). Performed By: #### 2 4321-2 ####[facility] LABORATORYCLIA [id number] [place] [address] [place] Potassium [Moles/Vol] 3.1 mmol/L Low 3.7-5.1 [facility] Comment on above: Order Comment: Speci men Type: BLOOD SPECIMENOrdering Facility: [facility] Address: [address] [place] [address] Performed By: #### 2 4321-2 ####[facility] LABORATORYCLIA [id number] [address] STATES [facility] Sodium [Moles/Vol] 156 mmol/L High 136-144 [facility] Comment on above: Order Comment: Speci men Type: BLOOD SPECIMENOrdering Facility: [facility] Address: [address] [place] [address] Performed By: #### 2 4321-2 ####[facility] LABORATORYCLIA [id number] [address] [place] Urea nitrogen [Mass/Vol] 33 mg/dL High 9-24 [facility] Comment on above: Order Comment: Speci men Type: BLOOD SPECIMENOrdering Facility: [facility] Address: [address] [place] [address] Performed By: #### 2 4321-2 ####[facility] LABORATORYCLIA [id number] [address] [place] CASE MANAGEMon 06-16-2021 CASE MANAGEM Normal [facility] CBC panel Auto (Bld)on 06-16 Erythrocyte distribution width (RBC) [Ratio] 15.9 % High 11.5-15.0 [facility] Comment on above: Order Comment: Speci men Type: BLOOD SPECIMENOrdering Facility: [facility] Address: [address] [place] [address] Performed By: #### 5 8410-2 ####[facility] LABORATORYCLIA [id number] [address] Hematocrit (Bld) [Volume fraction] 34.6 % Low 39.0-51.0 [facility] Comment on above: Order Comment: Speci men Type: BLOOD SPECIMENOrdering Facility: [facility] Address: [address] [place] [address] Performed By: #### 5 8410-2 ####[facility] LABORATORYCLIA [id number] [address] STATES [place] [facility] Hemoglobin (Bld) [Mass/Vol] 10.2 g/dL Low 13.0-17.0 [facility] Comment on above: Order Comment: Speci men Type: BLOOD SPECIMENOrdering Facility: [facility] Address: [address] [place] [address] Performed By: #### 5 8410-2 ####[facility] LABORATORYCLIA [id number] [address] MCH (RBC) [Entitic mass] 28.5 pg Normal 26.0-34.0 [facility] Comment on above: Order Comment: Speci men Type: BLOOD SPECIMENOrdering Facility: [facility] Address: [address] [place] [address] Performed By: #### 5 8410-2 ####[facility] LABORATORYCLIA [id number] [address] MCHC (RBC) [Mass/Vol] 29.5 g/dL Low 30.5-36.0 [facility] Comment on above: Order Comment: Speci men Type: BLOOD SPECIMENOrdering Facility: [facility] Address: [address] [place] [address] Performed By: #### 5 8410-2 ####[facility] LABORATORYCLIA [id number] [address] MCV (RBC) [Entitic vol] 96.6 fL Normal 80.0-100.0 [facility] Comment on above: Order Comment: Speci men Type: BLOOD SPECIMENOrdering Facility: [facility] Address: [address] [place] [address] Performed By: #### 5 8410-2 ####[facility] LABORATORYCLIA [id number] [address] Nucleated RBC (Bld) [#/Vol] 10*3/uL Normal <0.01 [facility] Comment on above: Order Comment: Speci men Type: BLOOD SPECIMENOrdering Facility: [facility] Address: [address] [place] [address] Performed By: #### 5 8410-2 ####[facility] LABORATORYCLIA [id number] [address] Platelet mean volume (Bld) [Entitic vol] 11.9 fL Normal 9.0-12.7 [facility] Comment on above: Order Comment: Speci men Type: BLOOD SPECIMENOrdering Facility: [facility] Address: [address] [place] [address] Performed By: #### 5 8410-2 ####[facility] LABORATORYCLIA [id number] [address] STATES [place] [facility] Platelets (Bld) [#/Vol] 269 10*3/uL Normal 150-400 [facility] Comment on above: Order Comment: Speci men Type: BLOOD SPECIMENOrdering Facility: [facility] Address: [address] [place] [address] Performed By: #### 5 8410-2 ####[facility] LABORATORYCLIA [id number] [address] [place] RBC (Bld) [#/Vol] 3.58 10*6/uL Low 4.20-6.00 [facility] Comment on above: Order Comment: Speci men Type: BLOOD SPECIMENOrdering Facility: [facility] Address: [address] [place], [place] [address] Performed By: #### 5 8410-2 ####[facility] LABORATORYCLIA [id number] [address] [place] WBC (Bld) [#/Vol] 13.11 10*3/uL High 3.70-11.00 [facility] Comment on above: Order Comment: Speci men Type: BLOOD SPECIMENOrdering Facility: [facility] Address: [address] [place] [address] Performed By: #### 5 8410-2 ####[facility] LABORATORYCLIA [id number] [place] [address] [place] CONSULTon 06-16-2021 CONSULT Normal [facility] CONSULT PROGon 06-16-2021 CONSULT PROG Normal [facility] CT BRAIN WO IVCONon 06-16-[address] BRAIN WO IVCON Normal [facility] HEMOGLOBIN (HGB)on 2 Hemoglobin (Bld) [Mass/Vol] 8.9 g/dL Low 13.0-17.0 [facility] Comment on above: Order Comment: Speci men Type: BLOOD SPECIMENOrdering Facility: [facility] Address: [address] [place] [address] Performed By: #### H GB ####[facility] LABORATORYCLIA [id number] [address] [place] Hemoglobin (Bld) [Mass/Vol] 9.6 g/dL Low 13.0-17.0 [facility] Comment on above: Order Comment: Speci men Type: BLOOD SPECIMENOrdering Facility: [facility] Address: [address] [place] [address] Performed By: #### H GB ####[facility] LABORATORYCLIA [id number] [address] [place] Magnesium SerPl-mCncon 06-16 Magnesium [Mass/Vol] 2.7 mg/dL High 1.7-2.3 [facility] Comment on above: Order Comment: Speci men Type: BLOOD SPECIMENOrdering Facility: [facility] Address: [address] [place] [address] Performed By: #### 1 9123-9 ####[facility] LABORATORYCLIA [id number] [place] [address] [place] NURSING PROGon 06-16-2021 NURSING PROG Normal [facility] NUTRITIONon 06-16-2021 NUTRITION Normal [facility] Phosphate SerPl-mCncon 06-16 Phosphate [Mass/Vol] 1.4 mg/dL Low 2.7-4.8 [facility] Comment on above: Order Comment: Speci men Type: BLOOD SPECIMENOrdering Facility: [facility] Address: [address] [place] [address] Performed By: #### 2 777-1 ####[facility] LABORATORYCLIA [id number] [place] [address] [place] STAPH AUREUS PCRon 2 S. aureus and MRSA panel MEGAN+probe (Nose) Normal Negative [facility] Comment on above: Order Comment: Speci men Type: SWAB OF INTERNAL NOSEOrdering Facility: [facility] Address: [address] [place] [address] Result Comment: Nega tive for Staphylococcus aureus by PCR.Negative for MRSA by PCR Performed By: #### S APCR ####[facility] LABORATORYCLIA [id number] [place] [address] [place] Sodium SerPl-sCncon 06-16-19 22 Sodium [Moles/Vol] 150 mmol/L High 136-144 [facility] Comment on above: Order Comment: Speci men Type: BLOOD SPECIMENOrdering Facility: [facility] Address: [address] [place] [address] Performed By: #### 2 951-2 ####[facility] LABORATORYCLIA [id number] [place] [address] [place] Sodium [Moles/Vol] 153 mmol/L High 136-144 [facility] Comment on above: Order Comment: Speci men Type: BLOOD SPECIMENOrdering Facility: [facility] Address: [address] [place] [address] Performed By: #### 2 951-2 ####[facility] LABORATORYCLIA [id number] [place] [address] [place] Sodium [Moles/Vol] 158 mmol/L High 136-144 [facility] Comment on above: Order Comment: Speci men Type: BLOOD SPECIMENOrdering Facility: [facility] Address: [address] [place] [address] Performed By: #### 2 951-2 ####[facility] LABORATORYCLIA [id number] [address] [place] aPTT PPPon 06-16-2021 aPTT Coag (PPP) [Time] 61.8 s High 23.0-32.4 [facility] Comment on above: Order Comment: Speci men Type: BLOOD SPECIMENOrdering Facility: [facility] Address: [address] [place] [address] Performed By: #### 1 4979-9 ####[facility] LABORATORYCLIA [id number] [address] [facility] aPTT Coag (PPP) [Time] 57.6 s High 23.0-32.4 [facility] Comment on above: Order Comment: Speci men Type: BLOOD SPECIMENOrdering Facility: [facility] Address: [address] [place] [address] Performed By: #### 1 4979-9 ####[facility] LABORATORYCLIA [id number] [address] [place] ALLIED HEALTHon 06-15-2021 ALLIED HEALTH Normal [facility] ALLIED HEALTH Normal [facility] ALLIED HEALTH Normal [facility] ALLIED HEALTH Normal [facility] ARTERIAL BLOOD GASESon 06-15 Base excess Calc (Bld) [Moles/Vol] 3 mmol/L High 0-2 [facility] Comment on above: Order Comment: Speci men Type: ARTERIAL BLOOD SPECIMENOrdering Facility: [facility] Address: [address] [place] [address] Performed By: #### A LLBG ####[facility] LABORATORYCLIA [id number] [address] Body temperature 99.5 [degF] Normal [facility] Comment on above: Order Comment: Speci men Type: ARTERIAL BLOOD SPECIMENOrdering Facility: [facility] Address: [address] [place] [address] Performed By: #### A LLBG ####[facility] LABORATORYCLIA [id number] [address] [place] [facility] CALCIUM IONIZED, PH CORRECTED 1.34 mmol/L High 1.08-1.30 [facility] Comment on above: Order Comment: Speci men Type: ARTERIAL BLOOD SPECIMENOrdering Facility: [facility] Address: [address] [place] [address] Performed By: #### A LLBG ####[facility] LABORATORYCLIA [id number] [address] [place] Calcium.ionized (BldV) [Mass/Vol] 1.29 mmol/L Normal 1.08-1.30 [facility] Comment on above: Order Comment: Speci men Type: ARTERIAL BLOOD SPECIMENOrdering Facility: [facility] Address: [address] [place] [address] Performed By: #### A LLBG ####[facility] LABORATORYCLIA [id number] [address] [facility] Carboxyhemoglobin (BldA) [Mass fraction] 1.3 % Normal 0.0-2.0 [facility] Comment on above: Order Comment: Speci men Type: ARTERIAL BLOOD SPECIMENOrdering Facility: [facility] Address: [address] [place] [address] Result Comment: Carb oxyhemoglobin Reference Range for Smokers: 2.0-8.0% Performed By: #### A LLBG ####[facility] LABORATORYCLIA [id number] [place] [address] [place] CO2 (Bld) [Partial pressure] 37 mm Hg Normal 36-46 [facility] Comment on above: Order Comment: Speci men Type: ARTERIAL BLOOD SPECIMENOrdering Facility: [facility] Address: [address] [place] [address] Performed By: #### A LLBG ####[facility] LABORATORYCLIA [id number] [address] [place] CO2 [Moles/Vol] 24.6 mmol/L Normal 22-28 [facility] Comment on above: Order Comment: Speci men Type: ARTERIAL BLOOD SPECIMENOrdering Facility: [facility] Address: [address] [place] [address] Performed By: #### A LLBG ####[facility]ORATORYCLIA [id number] [address] CO2 adjusted to patient's actual temperature (Bld) [Partial pressure] 38 mmHg Normal 36-46 [facility] Comment on above: Order Comment: Speci men Type: ARTERIAL BLOOD SPECIMENOrdering Facility: [facility] Address: [address] [place] [address] Performed By: #### A LLBG ####[facility] LABORATORYCLIA [id number] [address] FIO2 100 % Normal [facility] Comment on above: Order Comment: Speci men Type: ARTERIAL BLOOD SPECIMENOrdering Facility: [facility] Address: [address] [place] [address] Performed By: #### A LLBG ####[facility] LABORATORYCLIA [id number] [address] [place] Glucose [Mass/Vol] 159 mg/dL High 60-105 [facility] Comment on above: Order Comment: Speci men Type: ARTERIAL BLOOD SPECIMENOrdering Facility: [facility] Address: [address] [place] [address] Performed By: #### A LLBG ####[facility] LABORATORYCLIA [id number] [place] HCO3 (Bld) [Moles/Vol] 27 mmol/L High 22-26 [facility] Comment on above: Order Comment: Speci men Type: ARTERIAL BLOOD SPECIMENOrdering Facility: [facility] Address: [address] [place] [address] Performed By: #### A LLBG ####[facility] LABORATORYCLIA [id number] [address] Hematocrit (Bld) [Volume fraction] 31.0 % Low 39.0-51.0 [facility] Comment on above: Order Comment: Speci men Type: ARTERIAL BLOOD SPECIMENOrdering Facility: [facility] [facility] Address: [address] [address] Performed By: #### A LLBG ####[facility] LABORATORYCLIA [id number] [address] [place] Hemoglobin (Bld) [Mass/Vol] 10.0 g/dL Low 13.0-17.0 [facility] Comment on above: Order Comment: Speci men Type: ARTERIAL BLOOD SPECIMENOrdering Facility: [facility] Address: [address] [address] Performed By: #### A LLBG ####[facility] LABORATORYCLIA [id number] [address] Methemoglobin (Bld) [Mass fraction] % Normal 0.0-1.5 [facility] Comment on above: Order Comment: Speci men Type: ARTERIAL BLOOD SPECIMENOrdering Facility: [facility] Address: [address] [place] [address] Performed By: #### A LLBG ####[facility] LABORATORYCLIA [id number] [address] O2 THERAPY Ventilator Normal [facility] Comment on above: Order Comment: Speci men Type: ARTERIAL BLOOD SPECIMENOrdering Facility: [facility] Address: [address] [place] [address] Performed By: #### A LLBG ####[facility]ORATORYCLIA [id number] [address] [place] Oxygen (Bld) [Partial pressure] 279 mm Hg High 85-95 [facility] Comment on above: Order Comment: Speci men Type: ARTERIAL BLOOD SPECIMENOrdering Facility: [facility] Address: [address] [place] [address] Performed By: #### A LLBG ####[facility]ORATORYCLIA [id number] [address] [place] Oxygen adjusted to patient's actual temperature (Bld) [Partial pressure] 281 mmHg High 85-95 [facility] Comment on above: Order Comment: Speci men Type: ARTERIAL BLOOD SPECIMENOrdering Facility: [facility] Address: [address] [place] [address] Performed By: #### A LLBG ####[facility] LABORATORYCLIA [id number] [address] [place] OXYGEN SATURATION, ARTERIAL 100 % High 95-98 [facility] Comment on above: Order Comment: Speci men Type: ARTERIAL BLOOD SPECIMENOrdering Facility: [facility] Address: [address] [place] [address] Performed By: #### A LLBG ####[facility] LABORATORYCLIA [id number] [address] Oxyhemoglobin (BldA) [Mass fraction] 98 % Normal 95-98 [facility] Comment on above: Order Comment: Speci men Type: ARTERIAL BLOOD SPECIMENOrdering Facility: [facility] Address: [address] [place] [address] Performed By: #### A LLBG ####[facility] LABORATORYCLIA [id number] [address] [place] pH (Bld) 7.47 [pH] High 7.35-7.45 [facility] Comment on above: Order Comment: Speci men Type: ARTERIAL BLOOD SPECIMENOrdering Facility: [facility] Address: [address] [place] [address] Performed By: #### A LLBG ####[facility] LABORATORYCLIA [id number] [address] [place] pH adjusted to patient's actual temperature (Bld) 7.46 High 7.35-7.45 [facility] Comment on above: Order Comment: Speci men Type: ARTERIAL BLOOD SPECIMENOrdering Facility: [facility] Address: [address] [place] [address] Performed By: #### A LLBG ####[facility] LABORATORYCLIA [id number] [place] [address] [place] Potassium [Moles/Vol] 3.6 mmol/L Normal 3.5-5.0 [facility] Comment on above: Order Comment: Speci men Type: ARTERIAL BLOOD SPECIMENOrdering Facility: [facility] Address: [address] [place] [address] Performed By: #### A LLBG ####[facility] LABORATORYCLIA [id number] [address] [place] Sodium [Moles/Vol] 162 mmol/L High 136-144 [facility] Comment on above: Order Comment: Speci men Type: ARTERIAL BLOOD SPECIMENOrdering Facility: [facility] Address: [address] [place] [address] Performed By: #### A LLBG ####[facility] LABORATORYCLIA [id number] [address] [place] Base excess Calc (Bld) [Moles/Vol] 4 mmol/L High 0-2 [facility] Comment on above: Order Comment: Speci men Type: ARTERIAL BLOOD SPECIMENOrdering Facility: [facility] Address: [address] [place] [address] Performed By: #### A LLBG ####[facility] LABORATORYCLIA [id number] [address] [place] Body temperature 100.58 [degF] Normal [facility] Comment on above: Order Comment: Speci men Type: ARTERIAL BLOOD SPECIMENOrdering Facility: [facility] Address: [address] [place] [address] Performed By: #### A LLBG ####[facility] LABORATORYCLIA [id number] [address] [place] CALCIUM IONIZED, PH CORRECTED 1.34 mmol/L High 1.08-1.30 [facility] Comment on above: Order Comment: Speci men Type: ARTERIAL BLOOD SPECIMENOrdering Facility: [facility] Address: [address] [place] [address] Performed By: #### A LLBG ####[facility] LABORATORYCLIA [id number] [address] [place] Calcium.ionized (BldV) [Mass/Vol] 1.33 mmol/L High 1.08-1.30 [facility] Comment on above: Order Comment: Speci men Type: ARTERIAL BLOOD SPECIMENOrdering Facility: [facility] Address: [address] [place] [address] Performed By: #### A LLBG ####[facility] LABORATORYCLIA [id number] [address] [place] Carboxyhemoglobin (BldA) [Mass fraction] 1.5 % Normal 0.0-2.0 [facility] Comment on above: Order Comment: Speci men Type: ARTERIAL BLOOD SPECIMENOrdering Facility: [facility] Address: [address] [place] [address] Result Comment: Carb oxyhemoglobin Reference Range for Smokers: 2.0-8.0% Performed By: #### A LLBG ####[facility] LABORATORYCLIA [id number] [address] [place] CO2 (Bld) [Partial pressure] 46 mm Hg Normal 36-46 [facility] Comment on above: Order Comment: Speci men Type: ARTERIAL BLOOD SPECIMENOrdering Facility: [facility] Address: [address] [place] [address] Performed By: #### A LLBG ####[facility] LABORATORYCLIA [id number] [address] [place] CO2 [Moles/Vol] 26.4 mmol/L Normal 22-28 [facility] Comment on above: Order Comment: Speci men Type: ARTERIAL BLOOD SPECIMENOrdering Facility: [facility] Address: [address] [place] [address] Performed By: #### A LLBG ####[facility] LABORATORYCLIA [id number] [address] [place] CO2 adjusted to patient's actual temperature (Bld) [Partial pressure] 48 mmHg High 36-46 [facility] Comment on above: Order Comment: Speci men Type: ARTERIAL BLOOD SPECIMENOrdering Facility: [facility] Address: [address] [place] [address] Performed By: #### A LLBG ####[facility] LABORATORYCLIA [id number] [address] [place] FIO2 100 % Normal [facility] Comment on above: Order Comment: Speci men Type: ARTERIAL BLOOD SPECIMENOrdering Facility: [facility] Address: [address] [place] [address] Performed By: #### A LLBG ####[facility] LABORATORYCLIA [id number] [address] [place] Glucose [Mass/Vol] 132 mg/dL High 60-105 [facility] Comment on above: Order Comment: Speci men Type: ARTERIAL BLOOD SPECIMENOrdering Facility: [facility] Address: [address] [place] [address] Performed By: #### A LLBG ####[facility] LABORATORYCLIA [id number] [address] [place] HCO3 (Bld) [Moles/Vol] 29 mmol/L High 22-26 [facility] Comment on above: Order Comment: Speci men Type: ARTERIAL BLOOD SPECIMENOrdering Facility: [facility] Address: [address] [place] [address] Performed By: #### A LLBG ####[facility] LABORATORYCLIA [id number] [address] [place] Hematocrit (Bld) [Volume fraction] 32.3 % Low 39.0-51.0 [facility] Comment on above: Order Comment: Speci men Type: ARTERIAL BLOOD SPECIMENOrdering Facility: [facility] Address: [address] [place] [address] Performed By: #### A LLBG ####[facility] LABORATORYCLIA [id number] [address] [place] Hemoglobin (Bld) [Mass/Vol] 10.4 g/dL Low 13.0-17.0 [facility] Comment on above: Order Comment: Speci men Type: ARTERIAL BLOOD SPECIMENOrdering Facility: [facility] Address: [address] [address] Performed By: #### A LLBG ####[facility] LABORATORYCLIA [id number] [address] Methemoglobin (Bld) [Mass fraction] % Normal 0.0-1.5 [facility] Comment on above: Order Comment: Speci men Type: ARTERIAL BLOOD SPECIMENOrdering Facility: [facility] Address: [address] [address] Performed By: #### A LLBG ####[facility] LABORATORYCLIA [id number] [address] O2 THERAPY NR=Non-Rebreather Mask Normal [facility] Comment on above: Order Comment: Speci men Type: ARTERIAL BLOOD SPECIMENOrdering Facility: [facility] Address: [address] [place] [address] Performed By: #### A LLBG ####[facility] LABORATORYCLIA [id number] [address] Oxygen (Bld) [Partial pressure] 130 mm Hg High 85-95 [facility] Comment on above: Order Comment: Speci men Type: ARTERIAL BLOOD SPECIMENOrdering Facility: [facility] Address: [address] [address] Performed By: #### A LLBG ####[facility] LABORATORYCLIA [id number] [address] Oxygen adjusted to patient's actual temperature (Bld) [Partial pressure] 136 mmHg High 85-95 [facility] Comment on above: Order Comment: Speci men Type: ARTERIAL BLOOD SPECIMENOrdering Facility: [facility] Address: [address] [address] Performed By: #### A LLBG ####[facility] LABORATORYCLIA [id number] [place] [address] [place] OXYGEN SATURATION, ARTERIAL 99 % High 95-98 [facility] Comment on above: Order Comment: Speci men Type: ARTERIAL BLOOD SPECIMENOrdering Facility: [facility] Address: [address] [place] [address] Performed By: #### A LLBG ####[facility] LABORATORYCLIA [id number] [address] [place] Oxyhemoglobin (BldA) [Mass fraction] 97 % Normal 95-98 [facility] Comment on above: Order Comment: Speci men Type: ARTERIAL BLOOD SPECIMENOrdering Facility: [facility] Address: [address] [place] [address] Performed By: #### A LLBG ####[facility] LABORATORYCLIA [id number] [place] [address] [place] pH (Bld) 7.41 [pH] Normal 7.35-7.45 [facility] Comment on above: Order Comment: Speci men Type: ARTERIAL BLOOD SPECIMENOrdering Facility: [facility] Address: [address] [place] [address] Performed By: #### A LLBG ####[facility] LABORATORYCLIA [id number] [address] pH adjusted to patient's actual temperature (Bld) 7.40 Normal 7.35-7.45 [facility] Comment on above: Order Comment: Speci men Type: ARTERIAL BLOOD SPECIMENOrdering Facility: [facility] Address: [address] [place] [address] Performed By: #### A LLBG ####[facility] LABORATORYCLIA [id number] [place] [address] [place] Potassium [Moles/Vol] 3.8 mmol/L Normal 3.5-5.0 [facility] Comment on above: Order Comment: Speci men Type: ARTERIAL BLOOD SPECIMENOrdering Facility: [facility] Address: [address] [place] [address] Performed By: #### A LLBG ####[facility] LABORATORYCLIA [id number] [place] [address] [place] Sodium [Moles/Vol] 166 mmol/L High 136-144 [facility] Comment on above: Order Comment: Speci men Type: ARTERIAL BLOOD SPECIMENOrdering Facility: [facility] Address: [address] [place] [address] Performed By: #### A LLBG ####[facility] LABORATORYCLIA [id number] [place] [address] [place] Bacteria Bld Culton 06-15-19 22 Bacteria identified Cx Nom (Bld) CULTURE, BLOOD: No growth 5 days Normal [facility] Comment on above: Performed By: #### 6 00-7 ####[facility] LABORATORYCLIA [id number] [place] [address] [place] Basic metabolic 2000 panelon 06-15-2021 Anion gap [Moles/Vol] 9 mmol/L Normal 9-18 [facility] Comment on above: Order Comment: Speci men Type: BLOOD SPECIMEN Performed By: #### 2 4321-2, 2776-05, ####[facility] LABORATORYCLIA [id number] [place] [address] [place] Calcium [Mass/Vol] 9.0 mg/dL Normal 8.5-10.2 [facility] Comment on above: Order Comment: Speci men Type: BLOOD SPECIMEN Performed By: #### 2 4321-2, 2776-, ####[facility] LABORATORYCLIA [id number] [place] [address] [place] Chloride [Moles/Vol] 125 mmol/L High 97-105 [facility] Comment on above: Order Comment: Speci men Type: BLOOD SPECIMEN Performed By: #### 2 4321-2, 2776-, ####[facility] LABORATORYCLIA [id number] [place] [address] [place] CO2 [Moles/Vol] 29 mmol/L Normal 22-30 [facility] Comment on above: Order Comment: Speci men Type: BLOOD SPECIMEN Performed By: #### 2 4321-2, 2777-, ####[facility] LABORATORYCLIA [id number] [place] [address] [place] Creatinine [Mass/Vol] 0.81 mg/dL Normal 0.73-1.22 [facility] Comment on above: Order Comment: Spec men Type: BLOOD SPECIMEN Performed By: #### 2 4321-2, 2777-, ####[facility] LABORATORYCLIA [id number] [place] [address] [place] GFR/1.73 sq M.predicted MDRD (S/P/Bld) [Vol rate/Area] mL/min/{1.73_m2} Normal [facility] Comment on above: Order Comment: Speci [...] actual GFR. Performed By: #### 2 4321-2, 2777, ####[facility] LABORATORYCLIA [id number] [place] [address] [place] Glucose [Mass/Vol] 124 mg/dL High 74-99 [facility] Comment on above: Order Comment: [facility] Type: BLOOD SPECIMEN Result Comment: The [place] [employer] (ADA) provides guidance for cutoff [...] Standards of Medical Care in Diabetes 2016, [place] [employer]. Diabetes Care. 2016.39(Suppl 1). Performed By: #### 2 4321-2, 7-1, ####[facility] LABORATORYCLIA [id number] [address] [place] [facility] Potassium [Moles/Vol] 3.8 mmol/L Normal 3.7-5.1 [facility] Comment on above: Order Comment: Speci men Type: BLOOD SPECIMEN Performed By: #### 2 4321-2, 2776-05, ####[facility] LABORATORYCLIA [id number] [address] [place] [facility] Sodium [Moles/Vol] 163 mmol/L High 136-144 [facility] Comment on above: Order Comment: Speci men Type: BLOOD SPECIMEN Performed By: #### 2 4321-2, 2776-05, ####[facility] LABORATORYCLIA [id number] [address] Urea nitrogen [Mass/Vol] 35 mg/dL High 9-24 [facility] Comment on above: Order Comment: Speci men Type: BLOOD SPECIMEN Performed By: #### 2 4321-2, 2776-05, ####[facility] LABORATORYCLIA [id number] [address] [place] CBC panel Auto (Bld)on 06-15 Erythrocyte distribution width (RBC) [Ratio] 16.3 % High 11.5-15.0 [facility] Comment on above: Order Comment: Speci men Type: BLOOD SPECIMENOrdering Facility: [facility] Address: [address] [place] [address] Performed By: #### 5 8410-2 ####[facility] LABORATORYCLIA [id number] [address] Hematocrit (Bld) [Volume fraction] 30.0 % Low 39.0-51.0 [facility] Comment on above: Order Comment: Speci men Type: BLOOD SPECIMENOrdering Facility: [facility] Address: [address] [place] [address] Performed By: #### 5 8410-2 ####[facility] LABORATORYCLIA [id number] [address] [facility] Hemoglobin (Bld) [Mass/Vol] 8.9 g/dL Low 13.0-17.0 [facility] Comment on above: Order Comment: Speci men Type: BLOOD SPECIMENOrdering Facility: [facility] Address: [address] [place] [address] Performed By: #### 5 8410-2 ####[facility] LABORATORYCLIA [id number] [address] MCH (RBC) [Entitic mass] 28.7 pg Normal 26.0-34.0 [facility] Comment on above: Order Comment: Speci men Type: BLOOD SPECIMENOrdering Facility: [facility] Address: [address] [place] [address] Performed By: #### 5 8410-2 ####[facility] LABORATORYCLIA [id number] [address] [place] MCHC (RBC) [Mass/Vol] 29.7 g/dL Low 30.5-36.0 [facility] Comment on above: Order Comment: Speci men Type: BLOOD SPECIMENOrdering Facility: [facility] Address: [address] [place] [address] Performed By: #### 5 8410-2 ####[facility] LABORATORYCLIA [id number] [address] MCV (RBC) [Entitic vol] 96.8 fL Normal 80.0-100.0 [facility] Comment on above: Order Comment: Speci men Type: BLOOD SPECIMENOrdering Facility: [facility] Address: [address] [address] Performed By: #### 5 8410-2 ####[facility] LABORATORYCLIA [id number] [address] [place] Nucleated RBC (Bld) [#/Vol] 10*3/uL Normal <0.01 [facility] Comment on above: Order Comment: Speci men Type: BLOOD SPECIMENOrdering Facility: [facility] Address: [address] [place] [address] Performed By: #### 5 8410-2 ####[facility] LABORATORYCLIA [id number] [address] [place] Platelet mean volume (Bld) [Entitic vol] 12.3 fL Normal 9.0-12.7 [facility] Comment on above: Order Comment: Speci men Type: BLOOD SPECIMENOrdering Facility: [facility] Address: [address] [place] [address] Performed By: #### 5 8410-2 ####[facility] LABORATORYCLIA [id number] [address] [place] Platelets (Bld) [#/Vol] 226 10*3/uL Normal 150-400 [facility] Comment on above: Order Comment: Speci men Type: BLOOD SPECIMENOrdering Facility: [facility] Address: [address] [place] [address] Performed By: #### 5 8410-2 ####[facility] LABORATORYCLIA [id number] [address] [place] RBC (Bld) [#/Vol] 3.10 10*6/uL Low 4.20-6.00 [facility] Comment on above: Order Comment: Speci men Type: BLOOD SPECIMENOrdering Facility: [facility] Address: [address] [place] [address] Performed By: #### 5 8410-2 ####[facility] LABORATORYCLIA [id number] [address] [place] WBC (Bld) [#/Vol] 10.77 10*3/uL Normal 3.70-11.00 [facility] Comment on above: Order Comment: Speci men Type: BLOOD SPECIMENOrdering Facility: [facility] Address: [address] [place] [address] Performed By: #### 5 8410-2 ####[facility] LABORATORYCLIA [id number] [address] [place] [facility] Erythrocyte distribution width (RBC) [Ratio] 16.2 % High 11.5-15.0 [facility] Comment on above: Order Comment: Speci men Type: BLOOD SPECIMENOrdering Facility: [facility] Address: [address] [place] [address] Performed By: #### 5 8410-2 ####[facility] LABORATORYCLIA [id number] [address] [place] [facility] Hematocrit (Bld) [Volume fraction] 34.8 % Low 39.0-51.0 [facility] Comment on above: Order Comment: Speci men Type: BLOOD SPECIMENOrdering Facility: [facility] Address: [address] [place] [address] Performed By: #### 5 8410-2 ####[facility] LABORATORYCLIA [id number] [address] [place] [facility] Hemoglobin (Bld) [Mass/Vol] 10.0 g/dL Low 13.0-17.0 [facility] Comment on above: Order Comment: Speci men Type: BLOOD SPECIMENOrdering Facility: [facility] Address: [address] [place] [address] Performed By: #### 5 8410-2 ####[facility] LABORATORYCLIA [id number] [address] [place] MCH (RBC) [Entitic mass] 27.5 pg Normal 26.0-34.0 [facility] Comment on above: Order Comment: Speci men Type: BLOOD SPECIMENOrdering Facility: [facility] Address: [address] [place] [address] Performed By: #### 5 8410-2 ####[facility] LABORATORYCLIA [id number] [address] MCHC (RBC) [Mass/Vol] 28.7 g/dL Low 30.5-36.0 [facility] Comment on above: Order Comment: Speci men Type: BLOOD SPECIMENOrdering Facility: [facility] Address: [address] [place] [address] Performed By: #### 5 8410-2 ####[facility] LABORATORYCLIA [id number] [address] MCV (RBC) [Entitic vol] 95.6 fL Normal 80.0-100.0 [facility] Comment on above: Order Comment: Speci men Type: BLOOD SPECIMENOrdering Facility: [facility] Address: [address] [place] [address] Performed By: #### 5 8410-2 ####[facility] LABORATORYCLIA [id number] [address] [place] [facility] Nucleated RBC (Bld) [#/Vol] 10*3/uL Normal <0.01 [facility] Comment on above: Order Comment: Speci men Type: BLOOD SPECIMENOrdering Facility: [facility] Address: [address] [place] [address] Performed By: #### 5 8410-2 ####[facility] LABORATORYCLIA [id number] [address] [place] Platelet mean volume (Bld) [Entitic vol] 11.9 fL Normal 9.0-12.7 [facility] Comment on above: Order Comment: Speci men Type: BLOOD SPECIMENOrdering Facility: [facility] Address: [address] [place] [address] Performed By: #### 5 8410-2 ####[facility] LABORATORYCLIA [id number] [address] [place] Platelets (Bld) [#/Vol] 246 10*3/uL Normal 150-400 [facility] Comment on above: Order Comment: Speci men Type: BLOOD SPECIMENOrdering Facility: [facility] Address: [address] [place] [address] Performed By: #### 5 8410-2 ####[facility] LABORATORYCLIA [id number] [address] [place] RBC (Bld) [#/Vol] 3.64 10*6/uL Low 4.20-6.00 [facility] Comment on above: Order Comment: Speci men Type: BLOOD SPECIMENOrdering Facility: [facility] Address: [address] [place] [address] Performed By: #### 5 8410-2 ####[facility] LABORATORYCLIA [id number] [address] WBC (Bld) [#/Vol] 11.45 10*3/uL High 3.70-11.00 [facility] Comment on above: Order Comment: Speci men Type: BLOOD SPECIMENOrdering Facility: [facility] Address: [address] [place] [address] Performed By: #### 5 8410-2 ####[facility] LABORATORYCLIA [id number] [address] Erythrocyte distribution width (RBC) [Ratio] 15.9 % High 11.5-15.0 [facility] Comment on above: Order Comment: Speci men Type: BLOOD SPECIMEN Performed By: #### 5 8410-2 ####[facility] LABORATORYCLIA [id number] [address] Hematocrit (Bld) [Volume fraction] 35.8 % Low 39.0-51.0 [facility] Comment on above: Order Comment: Speci men Type: BLOOD SPECIMEN Performed By: #### 5 8410-2 ####[facility] LABORATORYCLIA [id number] [address] [facility] Hemoglobin (Bld) [Mass/Vol] 10.4 g/dL Low 13.0-17.0 [facility] Comment on above: Order Comment: Speci men Type: BLOOD SPECIMEN Performed By: #### 5 8410-2 ####[facility] LABORATORYCLIA [id number] [address] MCH (RBC) [Entitic mass] 28.0 pg Normal 26.0-34.0 [facility] Comment on above: Order Comment: Speci men Type: BLOOD SPECIMEN Performed By: #### 5 8410-2 ####[facility] LABORATORYCLIA [id number] [address] MCHC (RBC) [Mass/Vol] 29.1 g/dL Low 30.5-36.0 [facility] Comment on above: Order Comment: Speci men Type: BLOOD SPECIMEN Performed By: #### 5 8410-2 ####[facility] LABORATORYCLIA [id number] [address] MCV (RBC) [Entitic vol] 96.2 fL Normal 80.0-100.0 [facility] Comment on above: Order Comment: Speci men Type: BLOOD SPECIMEN Performed By: #### 5 8410-2 ####[facility] LABORATORYCLIA [id number] [address] Nucleated RBC (Bld) [#/Vol] 10*3/uL Normal <0.01 [facility] Comment on above: Order Comment: Speci men Type: BLOOD SPECIMEN Performed By: #### 5 8410-2 ####[facility] LABORATORYCLIA [id number] [address] Platelet mean volume (Bld) [Entitic vol] 11.6 fL Normal 9.0-12.7 [facility] Comment on above: Order Comment: Speci men Type: BLOOD SPECIMEN Performed By: #### 5 8410-2 ####[facility] LABORATORYCLIA [id number] [address] Platelets (Bld) [#/Vol] 265 10*3/uL Normal 150-400 [facility] Comment on above: Order Comment: Speci men Type: BLOOD SPECIMEN Performed By: #### 5 8410-2 ####[facility] LABORATORYCLIA [id number] [address] RBC (Bld) [#/Vol] 3.72 10*6/uL Low 4.20-6.00 [facility] Comment on above: Order Comment: Speci men Type: BLOOD SPECIMEN Performed By: #### 5 8410-2 ####[facility] LABORATORYCLIA [id number] [address] WBC (Bld) [#/Vol] 12.24 10*3/uL High 3.70-11.00 [facility] Comment on above: Order Comment: Speci men Type: BLOOD SPECIMEN Performed By: #### 5 8410-2 ####[facility] LABORATORYCLIA [id number] [address] CONSULTon 06-15-2021 CONSULT Normal [facility] CONSULT Normal [facility] CONSULT Normal [facility] CT BRAIN WO IVCONon 06-15-19 CT BRAIN WO IVCON Normal [facility] CT CHEST W IVCON PEon 2021 CT CHEST W IVCON PE Invalid Interpretation Code [facility] Chloride Unsp time (U) [Mole s/Vol]on 06-15-2021 Chloride (U) [Moles/Vol] 28 mmol/L Normal 16-250 [facility] Comment on above: Order Comment: Speci men Type: URINE SPECIMENOrdering Facility: [facility] Address: [address] [place] [id number] Performed By: #### U TPR, 65640-4, 19546-6, 85911-8 ####[facility] LABORATORYCLIA [id number] [address] Comprehensive metabolic 2000 panelon 06-15-2021 Albumin [Mass/Vol] 2.8 g/dL Low 3.9-4.9 [facility] Comment on above: Order Comment: Speci men Type: BLOOD SPECIMENOrdering Facility: [facility] Address: [address] [place] [address] Performed By: #### 2 4323-8 ####[facility] LABORATORYCLIA [id number] [address] [place] ALP [Catalytic activity/Vol] 74 U/L Normal 38-113 [facility] Comment on above: Order Comment: Speci men Type: BLOOD SPECIMENOrdering Facility: [facility] Address: [address] [place] [address] Performed By: #### 2 4323-8 ####[facility] LABORATORYCLIA [id number] [address] [place] ALT With P-5'-P [Catalytic activity/Vol] 50 U/L Normal 10-54 [facility] Comment on above: Order Comment: Speci men Type: BLOOD SPECIMENOrdering Facility: [facility] Address: [address] [place] [address] Performed By: #### 2 4323-8 ####[facility] LABORATORYCLIA [id number] [address] [place] Anion gap [Moles/Vol] 12 mmol/L Normal 9-18 [facility] Comment on above: Order Comment: Speci men Type: BLOOD SPECIMENOrdering Facility: [facility] Address: [address] [place] [address] Performed By: #### 2 4323-8 ####[facility] LABORATORYCLIA [id number] [place] [address] [place] AST With P-5'-P [Catalytic activity/Vol] 36 U/L Normal 14-40 [facility] Comment on above: Order Comment: Speci men Type: BLOOD SPECIMENOrdering Facility: [facility] Address: [address] [place] [address] Performed By: #### 2 4323-8 ####[facility] LABORATORYCLIA [id number] [address] [place] Bilirubin [Mass/Vol] 0.5 mg/dL Normal 0.2-1.3 [facility] Comment on above: Order Comment: Speci men Type: BLOOD SPECIMENOrdering Facility: [facility] Address: [address] [place] [address] Performed By: #### 2 4323-8 ####[facility] LABORATORYCLIA [id number] [place] [address] [place] Calcium [Mass/Vol] 8.8 mg/dL Normal 8.5-10.2 [facility] Comment on above: Order Comment: Speci men Type: BLOOD SPECIMENOrdering Facility: [facility] Address: [address] [place] [address] Performed By: #### 2 4323-8 ####[facility] LABORATORYCLIA [id number] [place] [address] [place] Chloride [Moles/Vol] 126 mmol/L High 97-105 [facility] Comment on above: Order Comment: Speci men Type: BLOOD SPECIMENOrdering Facility: [facility] Address: [address] [place] [address] Performed By: #### 2 4323-8 ####[facility]ORATORYCLIA [id number] [address] [place] CO2 [Moles/Vol] 24 mmol/L Normal 22-30 [facility] Comment on above: Order Comment: Speci men Type: BLOOD SPECIMENOrdering Facility: [facility] Address: [address] [place] [address] Performed By: #### 2 4323-8 ####[facility]ORATORYCLIA [id number] [place] [address] [place] Creatinine [Mass/Vol] 0.84 mg/dL Normal 0.73-1.22 [facility] Comment on above: Order Comment: Speci men Type: BLOOD SPECIMENOrdering Facility: [facility] Address: [address] [place] [address] Performed By: #### 2 4323-8 ####[facility]ORATORYCLIA [id number] [place] [address] [place] GFR/1.73 sq M.predicted MDRD (S/P/Bld) [Vol rate/Area] mL/min/{1.73_m2} Normal [facility] Comment on above: Order Comment: Shira feldman Type: BLOOD SPECIMENOrdering Facility: [facility] Address: [address] [place] [address] Result Comment: >60e GFR (Estimated GFR) Units [...] actual GFR. Performed By: #### 2 4323-8 ####[facility] LABORATORYCLIA [id number] [place] [address] [place] Glucose [Mass/Vol] 142 mg/dL High 74-99 [facility] Comment on above: Order Comment: Shira feldman Type: BLOOD SPECIMENOrdering Facility: [facility] Address: [address] [place] [address] Result Comment: The [place] [employer] (ADA) provides guidance for cutoff [...] Standards of Medical Care in Diabetes 2016, [place] [employer]. Diabetes Care. 2016.39(Suppl 1). Performed By: #### 2 4323-8 ####[facility]ORATORYCLIA [id number] [place] [address] [place] Potassium [Moles/Vol] 3.8 mmol/L Normal 3.7-5.1 [facility] Comment on above: Order Comment: Speci men Type: BLOOD SPECIMENOrdering Facility: [facility] Address: [address] [place] [address] Performed By: #### 2 4323-8 ####[facility] LABORATORYCLIA [id number] [address] [place] Protein [Mass/Vol] 6.1 g/dL Low 6.3-8.0 [facility] Comment on above: Order Comment: Speci men Type: BLOOD SPECIMENOrdering Facility: [facility] Address: [address] [place] [address] Performed By: #### 2 4323-8 ####[facility] LABORATORYCLIA [id number] [address] [place] Sodium [Moles/Vol] 162 mmol/L High 136-144 [facility] Comment on above: Order Comment: Speci men Type: BLOOD SPECIMENOrdering Facility: [facility] Address: [address] [place] [address] Performed By: #### 2 4323-8 ####[facility]ORATORYCLIA [id number] [place] [address] [place] Urea nitrogen [Mass/Vol] 33 mg/dL High 9-24 [facility] Comment on above: Order Comment: Speci men Type: BLOOD SPECIMENOrdering Facility: [facility] Address: [address] [place] [address] Performed By: #### 2 4323-8 ####[facility] LABORATORYCLIA [id number] [place] [address] [place] Creatinine Unsp time (U) [Ma ss/Vol]on 06-15-2021 Creatinine (U) [Mass/Vol] 87.0 mg/dL Normal 46.8-314.5 [facility] Comment on above: Order Comment: Speci men Type: URINE SPECIMENOrdering Facility: [facility] Address: [address] [place] [address] Performed By: #### U TPR, 38218-9, 01215-0, 90128-1 ####[facility] LABORATORYCLIA [id number] [place] [address] [place] HIGH SENSITIVITY TROPONIN To n 06-15-2021 HIGH SENSITIVITY TAMIKO 23 ng/L High <12 [facility] Comment on above: Order Comment: Speci men Type: BLOOD SPECIMENOrdering Facility: [facility] Address: [address] [place] [address] Result Comment: When assessing risk for acute [...] 30 day MACE. Performed By: #### P JULIANNE, 87500-2, HSTNT ####[facility] LABORATORYCLIA [id number] [place] [address] [place] Lactate (Bld) [Moles/Vol]on 06-15-2021 Lactate [Moles/Vol] 0.8 mmol/L Normal 0.5-2.2 [facility] Comment on above: Order Comment: Speci men Type: BLOOD SPECIMENOrdering Facility: [facility] Address: [address] [place] [address] Performed By: #### 3 2693-4 ####[facility] LABORATORYCLIA [id number] [place] [address] [place] Magnesium SerPl-mCncon 06-15 Magnesium [Mass/Vol] 3.0 mg/dL High 1.7-2.3 [facility] Comment on above: Order Comment: Speci men Type: BLOOD SPECIMEN Performed By: #### 2 4321-2, 2777-1, 87652-3 ####[facility] LABORATORYCLIA [id number] [address] NT-proBNP [facility] 06-15 Natriuretic peptide.B prohormone N-Terminal [Mass/Vol] 265 pg/mL High <125 [facility] Comment on above: Order Comment: Speci men Type: BLOOD SPECIMENOrdering Facility: [facility] Address: [address] [place] [address] Performed By: #### P JULIANNE, 83446-6, HSTNT ####[facility] [id number] [address] [place] Osmolality Uron 06-15-2021 Osmolality (U) [Osmolality] 606 mosm/kg Normal 50-1,200 [facility] Comment on above: Order Comment: Speci men Type: URINE SPECIMENOrdering Facility: [facility] Address: [address] [place] [address] Performed By: #### 2 695-5 ####[facility] [id number] [address] [place] PROCALCITONIN (LAB)on 2021 Procalcitonin [Mass/Vol] 0.21 ng/mL High <0.09 [facility] Comment on above: Order Comment: Speci men Type: BLOOD SPECIMENOrdering Facility: [facility] Address: [address] [place] [address] Result Comment: For a guided interpretation of test results, please visit the Change in Procalcitonin Calculator, [email or web address]. Performed By: #### P JULIANNE, 2951-2 ####[facility] LABORATORYCLIA [id number] [address] STATES [facility] Procalcitonin [Mass/Vol] 0.17 ng/mL High <0.09 [facility] Comment on above: Order Comment: Speci men Type: BLOOD SPECIMENOrdering Facility: [facility] Address: [address] [place] [address] Result Comment: For a guided interpretation of test results, please visit the Change in Procalcitonin Calculator, [email or web address]. Performed By: #### P ROCAL, 57944-2, HSTNT ####[facility] LABORATORYCLIA [id number] [address] [place] PROTEIN RANDOM URon 06-15-19 22 Protein (U) [Mass/Vol] 175 mg/dL High 0-20 [facility] Comment on above: Order Comment: Speci men Type: URINE SPECIMENOrdering Facility: [facility] Address: [address] [place] [address] Performed By: #### U TPR, 97661-5, 31209-9, 34027-2 ####[facility] LABORATORYCLIA [id number] [address] [place] PT panel Coag (PPP)on 2021 INR Coag (PPP) [Relative time] 1.1 {INR} Normal <1.4 [facility] Comment on above: Order Comment: Speci men Type: BLOOD SPECIMENOrdering Facility: [facility] Address: [address] [place] [address] Result Comment: Yris min K Antagonist (VKA) Therapeutic Range: INR 2 to 3 (Target INR of 2.5)Note: For patients treated with VKA drugs, such as warfarin, the [place] [employer] 2012 Guideline recommends [...] al. Chest 2012, 141:7S-47SAlba RA, et al. JACC 2017, 70: 252-289 Performed By: #### 3 4528-0, 76570-8 ####[facility] LABORATORYCLIA [id number] [place] [address] [place] PT Coag (PPP) [Time] 11.4 s Normal <13.1 [facility] Comment on above: Order Comment: Speci men Type: BLOOD SPECIMENOrdering Facility: [facility] Address: [address] [place] [address] Performed By: #### 3 4528-0, 00689-3 ####[facility] LABORATORYCLIA [id number] [address] [facility] Phosphate SerPl-mCncon 06-15 Phosphate [Mass/Vol] 2.6 mg/dL Low 2.7-4.8 [facility] Comment on above: Order Comment: Speci men Type: BLOOD SPECIMEN Performed By: #### 2 4321-2, 2777-1, 93556-1 ####[facility] LABORATORYCLIA [id number] [address] Sodium ?Tm Ur-sCncon 022 Sodium Unsp time (U) [Moles/Vol] 34 mmol/L Normal 14-216 [facility] Comment on above: Order Comment: Speci men Type: URINE SPECIMENOrdering Facility: [facility] Address: [address] [place] [address] Performed By: #### U TPR, 17919-5, 03219-7, 61582-2 ####[facility] LABORATORYCLIA [id number] [address] [place] Sodium SerPl-sCncon 06-15-19 22 Sodium [Moles/Vol] 159 mmol/L High 136-144 [facility] Comment on above: Order Comment: Speci men Type: BLOOD SPECIMENOrdering Facility: [facility] Address: [address] [place] [address] Performed By: #### P ROCAL, 2951-2 ####[facility] LABORATORYCLIA [id number] [address] [place] THERAPY NTon 06-15-2021 THERAPY NT Normal [facility] Urinalysis complete panel (U )on 06-15-2021 Bacteria LM.HPF (Urine sed) [#/Area] None Seen Normal None Seen [facility] Comment on above: Order Comment: Speci men Type: URINE SPECIMENOrdering Facility: [facility] Address: [address] [place] [address] Performed By: #### 2 4356-8 ####[facility] LABORATORYCLIA [id number] [address] Bilirubin Ql (U) Negative Normal Negative [facility] Comment on above: Order Comment: Speci men Type: URINE SPECIMENOrdering Facility: [facility] Address: [address] [place] [address] Performed By: #### 2 4356-8 ####[facility] LABORATORYCLIA [id number] [address] Clarity (Unsp spec) Cloudy Abnormal Clear [facility] Comment on above: Order Comment: Speci men Type: URINE SPECIMENOrdering Facility: [facility] Address: [address] [place] [address] Performed By: #### 2 4356-8 ####[facility] LABORATORYCLIA [id number] [address] Color (U) Yellow Normal Yellow [facility] Comment on above: Order Comment: Speci men Type: URINE SPECIMENOrdering Facility: [facility] Address: [address] [place] [address] Performed By: #### 2 4356-8 ####[facility] LABORATORYCLIA [id number] [address] Epithelial cells LM.HPF (Urine sed) [#/Area] 7.1 /[HPF] Normal [facility] Comment on above: Order Comment: Speci men Type: URINE SPECIMENOrdering Facility: [facility] Address: [address] [place] [address] Performed By: #### 2 4356-8 ####[facility]ORATORYCLIA [id number] [address] Glucose Test strip (U) [Mass/Vol] Negative Normal Negative [facility] Comment on above: Order Comment: Speci men Type: URINE SPECIMENOrdering Facility: [facility] Address: [address] [place] [address] Performed By: #### 2 4356-8 ####[facility]ORATORYCLIA [id number] [address] Granular casts (Urine sed) [#/Area] /[LPF] Abnormal 0 /LPF [facility] Comment on above: Order Comment: Speci men Type: URINE SPECIMENOrdering Facility: [facility] Address: [address] [place] [address] Performed By: #### 2 4356-8 ####[facility] LABORATORYCLIA [id number] [address] Hemoglobin Ql (U) Moderate Abnormal Negative [facility] Comment on above: Order Comment: Speci men Type: URINE SPECIMENOrdering Facility: [facility] Address: [address] [place] [address] Performed By: #### 2 4356-8 ####[facility] LABORATORYCLIA [id number] [address] Hyaline casts (Urine sed) [#/Area] /[LPF] Abnormal 0 /LPF [facility] Comment on above: Order Comment: Speci men Type: URINE SPECIMENOrdering Facility: [facility] Address: [address] [place] [address] Performed By: #### 2 4356-8 ####[facility] LABORATORYCLIA [id number] [address] Ketones Ql (U) Negative Normal Negative [facility] Comment on above: Order Comment: Speci men Type: URINE SPECIMENOrdering Facility: [facility] Address: [address] [place] [address] Performed By: #### 2 4356-8 ####[facility] LABORATORYCLIA [id number] [address] Leukocyte esterase Test strip Ql (U) Negative Normal Negative [facility] Comment on above: Order Comment: Speci men Type: URINE SPECIMENOrdering Facility: [facility] Address: [address] [place] [address] Performed By: #### 2 4356-8 ####[facility] LABORATORYCLIA [id number] [address] STATES [facility] Nitrite Ql (U) Negative Normal Negative [facility] Comment on above: Order Comment: Speci men Type: URINE SPECIMENOrdering Facility: [facility] Address: [address] [place] [address] Performed By: #### 2 4356-8 ####[facility] LABORATORYCLIA [id number] [address] pH (U) 6.0 [pH] Normal 5.0-8.0 [facility] Comment on above: Order Comment: Speci men Type: URINE SPECIMENOrdering Facility: [facility] Address: [address] [place] [address] Performed By: #### 2 4356-8 ####[facility] LABORATORYCLIA [id number] [address] Protein (U) [Mass/Vol] 100 mg/dL Abnormal Negative [facility] Comment on above: Order Comment: Speci men Type: URINE SPECIMENOrdering Facility: [facility] Address: [address] [place] [address] Performed By: #### 2 4356-8 ####[facility] LABORATORYCLIA [id number] [address] RBC LM.HPF (Urine sed) [#/Area] 0-3 /HPF Normal 0-3 /HPF [facility] Comment on above: Order Comment: Speci men Type: URINE SPECIMENOrdering Facility: [facility] Address: [address] [address] Performed By: #### 2 4356-8 ####[facility] LABORATORYCLIA [id number] [address] Specific gravity (U) [Rel density] 1.024 Normal 1.005-1.030 [facility] Comment on above: Order Comment: Speci men Type: URINE SPECIMENOrdering Facility: [facility] Address: [address] [place] [address] Performed By: #### 2 4356-8 ####[facility] LABORATORYCLIA [id number] [address] [place] Urobilinogen Ql (U) 0.2 EU/dL Normal 0.2-1.0 EU/dL [facility] Comment on above: Order Comment: Speci men Type: URINE SPECIMENOrdering Facility: [facility] Address: [address] [place] [address] Performed By: #### 2 4356-8 ####[facility] LABORATORYCLIA [id number] [address] WBC LM.HPF (Urine sed) [#/Area] 0-5 /HPF Normal 0-5 /HPF [facility] Comment on above: Order Comment: Speci men Type: URINE SPECIMENOrdering Facility: [facility] Address: [address] [place] [address] Performed By: #### 2 4356-8 ####[facility] LABORATORYCLIA [id number] [address] [place] XR CHEST 1V FRONTALon 2021 XR CHEST 1V FRONTAL Normal [facility] XR CHEST 1V FRONTAL PORTon 0 06-15-2021 XR CHEST 1V FRONTAL PORT Normal [facility] XR CHEST 1V FRONTAL PORT Normal [facility] aPTT PPPon 06-15-2021 aPTT Coag (PPP) [Time] 30.9 s Normal 23.0-32.4 [facility] Comment on above: Order Comment: Speci men Type: BLOOD SPECIMENOrdering Facility: [facility] Address: [address] [place] [address] Performed By: #### 3 4528-0, 19835-8 ####[facility]ORATORYCLIA [id number] [place] [address] [place] Basic metabolic 2000 panelon 06-14-2021 Anion gap [Moles/Vol] 8 mmol/L Low 9-18 [facility] Comment on above: Order Comment: Speci men Type: BLOOD SPECIMEN Performed By: #### 2 4321-2, 2776-, ####[facility] [id number] [place] [address] [place] Calcium [Mass/Vol] 8.9 mg/dL Normal 8.5-10.2 [facility] Comment on above: Order Comment: Speci men Type: BLOOD SPECIMEN Performed By: #### 2 4321-2, 2776-05, ####[facility] [id number] [address] [place] Chloride [Moles/Vol] 121 mmol/L High 97-105 [facility] Comment on above: Order Comment: Speci men Type: BLOOD SPECIMEN Performed By: #### 2 4321-2, 2776-05, ####[facility] [id number] [place], [place] [id number] [place] [address] [place] CO2 [Moles/Vol] 30 mmol/L Normal 22-30 [facility] Comment on above: Order Comment: Speci men Type: BLOOD SPECIMEN Performed By: #### 2 4321-2, 2776-, ####[facility] [id number] [place], [place] [id number] [place] [address] [place] Creatinine [Mass/Vol] 0.78 mg/dL Normal 0.73-1.22 [facility] Comment on above: Order Comment: Speci men Type: BLOOD SPECIMEN Performed By: #### 2 4321-2, 2776-, ####[facility] [id number] [place] [address] [place] GFR/1.73 sq M.predicted MDRD (S/P/Bld) [Vol rate/Area] mL/min/{1.73_m2} Normal [facility] Comment on above: Order Comment: Speci [...] GFR. Performed By: #### 2 4321-2, 2777-, ####[facility] [id number] [place] [address] [place] Glucose [Mass/Vol] 132 mg/dL High 74-99 [facility] Comment on above: Order Comment: Speci men Type: BLOOD SPECIMEN Result Comment: The [place] [employer] Association (ADA) provides guidance for cutoff [...] Standards of Medical Care in Diabetes 2016, [place] [employer]. Diabetes Care. 2016.39(Suppl 1). Performed By: #### 2 4321-2, 2777-, ####[facility] LABORATORYIA [id number] [place] [address] [place] Potassium [Moles/Vol] 3.7 mmol/L Normal 3.7-5.1 [facility] Comment on above: Order Comment: Speci men Type: BLOOD SPECIMEN Performed By: #### 2 4321-2, 2776-05, ####[facility] LABORATORYCLIA [id number] [address] Sodium [Moles/Vol] 159 mmol/L High 136-144 [facility] Comment on above: Order Comment: Speci men Type: BLOOD SPECIMEN Performed By: #### 2 4321-2, 2776-05, ####[facility] LABORATORYCLIA [id number] [address] Urea nitrogen [Mass/Vol] 35 mg/dL High 9-24 [facility] Comment on above: Order Comment: Speci men Type: BLOOD SPECIMEN Performed By: #### 2 4321-2, 2776-05, ####[facility] LABORATORYCLIA [id number] [address] CASE MANAGEMon 06-14-2021 CASE MANAGEM Normal [facility] CBC panel Auto (Bld)on 06-14 Erythrocyte distribution width (RBC) [Ratio] 16.2 % High 11.5-15.0 [facility] Comment on above: Order Comment: Speci men Type: BLOOD SPECIMEN Performed By: #### 5 8410-2 ####[facility] LABORATORYCLIA [id number] [address] Hematocrit (Bld) [Volume fraction] 35.2 % Low 39.0-51.0 [facility] Comment on above: Order Comment: Speci men Type: BLOOD SPECIMEN Performed By: #### 5 8410-2 ####[facility] LABORATORYCLIA [id number] [address] Hemoglobin (Bld) [Mass/Vol] 10.1 g/dL Low 13.0-17.0 [facility] Comment on above: Order Comment: Speci men Type: BLOOD SPECIMEN Performed By: #### 5 8410-2 ####[facility] LABORATORYCLIA [id number] [address] MCH (RBC) [Entitic mass] 27.2 pg Normal 26.0-34.0 [facility] Comment on above: Order Comment: Speci men Type: BLOOD SPECIMEN Performed By: #### 5 8410-2 ####[facility] LABORATORYCLIA [id number] [address] MCHC (RBC) [Mass/Vol] 28.7 g/dL Low 30.5-36.0 [facility] Comment on above: Order Comment: Speci men Type: BLOOD SPECIMEN Performed By: #### 5 8410-2 ####[facility] LABORATORYCLIA [id number] [address] MCV (RBC) [Entitic vol] 94.6 fL Normal 80.0-100.0 [facility] Comment on above: Order Comment: Speci men Type: BLOOD SPECIMEN Performed By: #### 5 8410-2 ####[facility] LABORATORYCLIA [id number] [address] Nucleated RBC (Bld) [#/Vol] 10*3/uL Normal <0.01 [facility] Comment on above: Order Comment: Speci men Type: BLOOD SPECIMEN Performed By: #### 5 8410-2 ####[facility] LABORATORYCLIA [id number] [address] Platelet mean volume (Bld) [Entitic vol] 11.0 fL Normal 9.0-12.7 [facility] Comment on above: Order Comment: Speci men Type: BLOOD SPECIMEN Performed By: #### 5 8410-2 ####[facility] LABORATORYCLIA [id number] [address] Platelets (Bld) [#/Vol] 287 10*3/uL Normal 150-400 [facility] Comment on above: Order Comment: Speci men Type: BLOOD SPECIMEN Performed By: #### 5 8410-2 ####[facility]ORATORYCLIA [id number] [address] RBC (Bld) [#/Vol] 3.72 10*6/uL Low 4.20-6.00 [facility] Comment on above: Order Comment: Speci men Type: BLOOD SPECIMEN Performed By: #### 5 8410-2 ####[facility] LABORATORYCLIA [id number] [address] WBC (Bld) [#/Vol] 12.23 10*3/uL High 3.70-11.00 [facility] Comment on above: Order Comment: Speci men Type: BLOOD SPECIMEN Performed By: #### 5 8410-2 ####[facility] LABORATORYCLIA [id number] [address] Comprehensive metabolic 2000 panelon 06-14-2021 Albumin [Mass/Vol] 3.1 g/dL Low 3.9-4.9 [facility] Comment on above: Order Comment: Speci men Type: BLOOD SPECIMEN Performed By: #### 2 4323-8, HSTNT, 2776-05, ####[facility] LABORATORYCLIA [id number] [address] ALP [Catalytic activity/Vol] 72 U/L Normal 38-113 [facility] Comment on above: Order Comment: Speci men Type: BLOOD SPECIMEN Performed By: #### 2 4323-8, HSTNT, 2776-05, ####[facility]ORATORYCLIA [id number] [address] ALT With P-5'-P [Catalytic activity/Vol] 57 U/L High 10-54 [facility] Comment on above: Order Comment: Speci men Type: BLOOD SPECIMEN Performed By: #### 2 4323-8, HSTNT, 2776-05, ####[facility]ORATORYCLIA [id number] [address] Anion gap [Moles/Vol] 9 mmol/L Normal 9-18 [facility] Comment on above: Order Comment: Speci men Type: BLOOD SPECIMEN Performed By: #### 2 4323-8, HSTNT, 2776-05, ####[facility] LABORATORYCLIA [id number] [place], [place] [address] [place] [address] [place] [facility] AST With P-5'-P [Catalytic activity/Vol] 33 U/L Normal 14-40 [facility] Comment on above: Order Comment: Speci men Type: BLOOD SPECIMEN Performed By: #### 2 4323-8, HSTNT, 2776-05, ####[facility]ATORYCLIA [id number] [address] Bilirubin [Mass/Vol] 0.5 mg/dL Normal 0.2-1.3 [facility] Comment on above: Order Comment: Speci men Type: BLOOD SPECIMEN Performed By: #### 2 4323-8, HSTNT, 2776-05, ####[facility]ORATORYCLIA [id number] [address] STATES [place] [facility] Calcium [Mass/Vol] 8.8 mg/dL Normal 8.5-10.2 [facility] Comment on above: Order Comment: Speci men Type: BLOOD SPECIMEN Performed By: #### 2 4323-8, HSTNT, 2776-05, ####[facility]ORATORYCLIA [id number] [address] [place] Chloride [Moles/Vol] 124 mmol/L High 97-105 [facility] Comment on above: Order Comment: Speci men Type: BLOOD SPECIMEN Performed By: #### 2 4323-8, HSTNT, 2776-05, ####[facility]ORATORYCLIA [id number] [address] [place] CO2 [Moles/Vol] 29 mmol/L Normal 22-30 [facility] Comment on above: Order Comment: Speci men Type: BLOOD SPECIMEN Performed By: #### 2 4323-8, HSTNT, 2776-05, ####[facility] LABORATORYCLIA [id number] [place] [address] [place] Creatinine [Mass/Vol] 0.73 mg/dL Normal 0.73-1.22 [facility] Comment on above: Order Comment: Speci men Type: BLOOD SPECIMEN Performed By: #### 2 4323-8, HSTNT, 2776-05, ####[facility] LABORATORYCLIA [id number] [place] [address] [place] GFR/1.73 sq M.predicted MDRD (S/P/Bld) [Vol rate/Area] mL/min/{1.73_m2} Normal [facility] Comment on above: Order Comment: Speci [...] GFR. Performed By: #### 2 4323-8, HSTNT, 2776-05, ####[facility] LABORATORYCLIA [id number] [place] [address] [place] Glucose [Mass/Vol] 137 mg/dL High 74-99 [facility] Comment on above: Order Comment: Speci men Type: BLOOD SPECIMEN Result Comment: The [place] Diabetes Association (ADA) provides guidance for cutoff [...] Standards of Medical Care in Diabetes 2016, [place] [employer]. Diabetes Care. 2016.39(Suppl 1). Performed By: #### 2 4323-8, HSTNT, 2776-05, ####[facility] LABORATORYCLIA [id number] [address] [place] Potassium [Moles/Vol] 3.6 mmol/L Low 3.7-5.1 [facility] Comment on above: Order Comment: Speci men Type: BLOOD SPECIMEN Performed By: #### 2 4323-8, HSTNT, 2776-05, ####[facility] LABORATORYCLIA [id number] [place] [address] [place] Protein [Mass/Vol] 5.9 g/dL Low 6.3-8.0 [facility] Comment on above: Order Comment: Speci men Type: BLOOD SPECIMEN Performed By: #### 2 4323-8, HSTNT, 2776-05, ####[facility] LABORATORYCLIA [id number] [address] [place] Sodium [Moles/Vol] 162 mmol/L High 136-144 [facility] Comment on above: Order Comment: Speci men Type: BLOOD SPECIMEN Performed By: #### 2 4323-8, HSTNT, 2776-05, ####[facility] LABORATORYCLIA [id number] [place] [address] [place] Urea nitrogen [Mass/Vol] 33 mg/dL High 9-24 [facility] Comment on above: Order Comment: Speci men Type: BLOOD SPECIMEN Performed By: #### 2 4323-8, HSTNT, 2776-05, ####[facility] LABORATORYCLIA [id number] [address] HIGH SENSITIVITY TROPONIN To n 06-14-2021 HIGH SENSITIVITY TAMIKO 22 ng/L High <12 [facility] Comment on above: Order Comment: Speci [...] day MACE. Performed By: #### H STNT ####[facility] LABORATORYCLIA [id number] [address] HIGH SENSITIVITY TAMIKO 22 ng/L High <12 [facility] Comment on above: Order Comment: Speci [...] MACE. Performed By: #### 2 4323-8, HSTNT, ####[facility] LABORATORYCLIA [id number] [address] OF [facility] Magnesium SerPl-mCncon 06-14 Magnesium [Mass/Vol] 2.9 mg/dL High 1.7-2.3 [facility] Comment on above: Order Comment: Speci men Type: BLOOD SPECIMEN Performed By: #### 2 4323-8, HSTNT, ####[facility] LABORATORYCLIA [id number] [address] Magnesium [Mass/Vol] 3.0 mg/dL High 1.7-2.3 [facility] Comment on above: Order Comment: Speci men Type: BLOOD SPECIMEN Performed By: #### 2 4321-2, ####[facility] LABORATORYCLIA [id number] [place], [place] [id number] [place] [address] [place] NURSING PROGon 06-14-2021 NURSING PROG Normal [facility] NUTRITIONon 06-14-2021 NUTRITION Normal [facility] Phosphate SerPl-mCncon 06-14 Phosphate [Mass/Vol] 2.4 mg/dL Low 2.7-4.8 [facility] Comment on above: Order Comment: Speci men Type: BLOOD SPECIMEN Performed By: #### 2 4323-8, HSTNT, 2776-05, ####[facility] LABORATORYCLIA [id number] [address] [facility] Phosphate [Mass/Vol] 3.2 mg/dL Normal 2.7-4.8 [facility] Comment on above: Order Comment: Speci men Type: BLOOD SPECIMEN Performed By: #### 2 4321-2, 2776-05, ####[facility] LABORATORYCLIA [id number] [address] [place] THERAPY NTon 06-14-2021 THERAPY NT Normal [facility] THERAPY NT Normal [facility] THERAPY NT Normal [facility] US DVT LOWER BILon US DVT LOWER RAINER Normal [facility] ALLIED HEALTHon 06-13-2021 ALLIED HEALTH Normal [facility] Basic metabolic 2000 panelon 06-13-2021 Anion gap [Moles/Vol] 7 mmol/L Low 9-18 [facility] Comment on above: Order Comment: Speci men Type: BLOOD SPECIMEN Performed By: #### 2 4321-2, , 2776-05 ####[facility]ORATORYCLIA [id number] [place], [place] [address] [place] [address] [place] Calcium [Mass/Vol] 8.8 mg/dL Normal 8.5-10.2 [facility] Comment on above: Order Comment: Speci men Type: BLOOD SPECIMEN Performed By: #### 2 4321-2, , 2776-05 ####[facility] LABORATORYCLIA [id number] [place] [address] [place] Chloride [Moles/Vol] 120 mmol/L High 97-105 [facility] Comment on above: Order Comment: Speci men Type: BLOOD SPECIMEN Performed By: #### 2 4321-2, , 2776-05 ####[facility] LABORATORYCLIA [id number] [place] [id number] [place] CO2 [Moles/Vol] 28 mmol/L Normal 22-30 [facility] Comment on above: Order Comment: Speci men Type: BLOOD SPECIMEN Performed By: #### 2 1-2, , 2776-05 ####[facility] LABORATORYCLIA [id number] [address] [place] Creatinine [Mass/Vol] 0.78 mg/dL Normal 0.73-1.22 [facility] Comment on above: Order Comment: Speci men Type: BLOOD SPECIMEN Performed By: #### 2 4321-2, , 2776-05 ####[facility] LABORATORYCLIA [id number] [place] [address] [place] GFR/1.73 sq M.predicted MDRD (S/P/Bld) [Vol rate/Area] mL/min/{1.73_m2} Normal [facility] Comment on above: Order Comment: Speci [...] Performed By: #### 2 4321-2, , 2776-05 ####[facility] [id number] [place] [address] [place] Glucose [Mass/Vol] 126 mg/dL High 74-99 [facility] Comment on above: Order Comment: Speci men Type: BLOOD SPECIMEN Result Comment: The [place] [employer] Association (ADA) provides guidance for cutoff [...] Standards of Medical Care in Diabetes 2016, [place] [employer]. Diabetes Care. 2016.39(Suppl 1). Performed By: #### 2 4320-2, , 2776-05 ####[facility] LABORATORYCLIA [id number] [address] [place] Potassium [Moles/Vol] 3.6 mmol/L Low 3.7-5.1 [facility] Comment on above: Order Comment: Speci men Type: BLOOD SPECIMEN Performed By: #### 2 4320-2, , 2776-05 ####[facility] LABORATORYCLIA [id number] [place] [address] [place] Sodium [Moles/Vol] 155 mmol/L High 136-144 [facility] Comment on above: Order Comment: Speci men Type: BLOOD SPECIMEN Performed By: #### 2 1-2, , 2776-05 ####[facility] LABORATORYCLIA [id number] [place] [address] [place] Urea nitrogen [Mass/Vol] 36 mg/dL High 9-24 [facility] Comment on above: Order Comment: Speci men Type: BLOOD SPECIMEN Performed By: #### 2 4320-2, , 2776-05 ####[facility]ORATORYCLIA [id number] [place] [address] [place] Anion gap [Moles/Vol] 6 mmol/L Low 9-18 [facility] Comment on above: Order Comment: Speci men Type: BLOOD SPECIMEN Performed By: #### 2 4321-2, 2776-05, ####[facility]ORATORYCLIA [id number] [place] [address] [place] Calcium [Mass/Vol] 6.5 mg/dL Low 8.5-10.2 [facility] Comment on above: Order Comment: Speci men Type: BLOOD SPECIMEN Performed By: #### 2 4321-2, 2776-05, ####[facility]ORATORYCLIA [id number] [place], [place] [address] [place] [address] [place] Chloride [Moles/Vol] 124 mmol/L High 97-105 [facility] Comment on above: Order Comment: Speci men Type: BLOOD SPECIMEN Performed By: #### 2 4321-2, 2776-05, ####[facility]ATORYCLIA [id number] [address] [place] CO2 [Moles/Vol] 24 mmol/L Normal 22-30 [facility] Comment on above: Order Comment: Speci men Type: BLOOD SPECIMEN Performed By: #### 2 4321-2, 2776-05, ####[facility]ATORYCLIA [id number] [place], [place] [address] [place] [address] [place] Creatinine [Mass/Vol] 0.61 mg/dL Low 0.73-1.22 [facility] Comment on above: Order Comment: Speci men Type: BLOOD SPECIMEN Performed By: #### 2 4321-2, 2776-05, ####[facility]ORATORYCLIA [id number] [place] [address] [place] GFR/1.73 sq M.predicted MDRD (S/P/Bld) [Vol rate/Area] mL/min/{1.73_m2} Normal [facility] Comment on above: Order Comment: Speci [...] actual GFR. Performed By: #### 2 4321-2, 2777, ####[facility] [id number] [place] [address] [place] Glucose [Mass/Vol] 100 mg/dL High 74-99 [facility] Comment on above: Order Comment: Speci [facility] Type: BLOOD SPECIMEN Result Comment: The [place] [employer] Association (ADA) provides guidance for cutoff [...] Standards of Medical Care in Diabetes 2016, [place] [employer]. Diabetes Care. 2016.39(Suppl 1). Performed By: #### 2 4321-2, 2777-, ####[facility] LABORATORYCLIA [id number] [place] [address] [place] Potassium [Moles/Vol] 2.7 mmol/L Low 3.7-5.1 [facility] Comment on above: Order Comment: Speci [facility] Type: BLOOD SPECIMEN Performed By: #### 2 4321-2, 2776-05, ####[facility] LABORATORYCLIA [id number] [place], [place] [address] [place] [address] STATES [facility] Sodium [Moles/Vol] 154 mmol/L High 136-144 [facility] Comment on above: Order Comment: Speci men Type: BLOOD SPECIMEN Performed By: #### 2 4321-2, 2776-05, ####[facility] LABORATORYCLIA [id number] [place], [place] [address] [place] [address] STATES [facility] Urea nitrogen [Mass/Vol] 29 mg/dL High 9-24 [facility] Comment on above: Order Comment: Speci men Type: BLOOD SPECIMEN Performed By: #### 2 4321-2, 2776-05, ####[facility] LABORATORYCLIA [id number] [address] CASE MANAGEMon 06-13-2021 CASE MANAGEM Normal [facility] CBC panel Auto (Bld)on 06-13 Erythrocyte distribution width (RBC) [Ratio] 15.9 % High 11.5-15.0 [facility] Comment on above: Order Comment: Speci men Type: BLOOD SPECIMEN Performed By: #### 5 8410-2 ####[facility] LABORATORYCLIA [id number] [address] Hematocrit (Bld) [Volume fraction] 34.3 % Low 39.0-51.0 [facility] Comment on above: Order Comment: Speci men Type: BLOOD SPECIMEN Performed By: #### 5 8410-2 ####[facility] LABORATORYCLIA [id number] [address] STATES OF [facility] Hemoglobin (Bld) [Mass/Vol] 9.9 g/dL Low 13.0-17.0 [facility] Comment on above: Order Comment: Speci men Type: BLOOD SPECIMEN Performed By: #### 5 8410-2 ####[facility] LABORATORYCLIA [id number] [address] MCH (RBC) [Entitic mass] 27.3 pg Normal 26.0-34.0 [facility] Comment on above: Order Comment: Speci men Type: BLOOD SPECIMEN Performed By: #### 5 8410-2 ####[facility] LABORATORYCLIA [id number] [address] MCHC (RBC) [Mass/Vol] 28.9 g/dL Low 30.5-36.0 [facility] Comment on above: Order Comment: Speci men Type: BLOOD SPECIMEN Performed By: #### 5 8410-2 ####[facility] LABORATORYCLIA [id number] [address] MCV (RBC) [Entitic vol] 94.5 fL Normal 80.0-100.0 [facility] Comment on above: Order Comment: Speci men Type: BLOOD SPECIMEN Performed By: #### 5 8410-2 ####[facility] LABORATORYCLIA [id number] [address] Nucleated RBC (Bld) [#/Vol] 10*3/uL Normal <0.01 [facility] Comment on above: Order Comment: Speci men Type: BLOOD SPECIMEN Performed By: #### 5 8410-2 ####[facility] LABORATORYCLIA [id number] [address] Platelet mean volume (Bld) [Entitic vol] 11.3 fL Normal 9.0-12.7 [facility] Comment on above: Order Comment: Speci men Type: BLOOD SPECIMEN Performed By: #### 5 8410-2 ####[facility] LABORATORYCLIA [id number] [address] Platelets (Bld) [#/Vol] 269 10*3/uL Normal 150-400 [facility] Comment on above: Order Comment: Speci men Type: BLOOD SPECIMEN Performed By: #### 5 8410-2 ####[facility] LABORATORYCLIA [id number] [address] RBC (Bld) [#/Vol] 3.63 10*6/uL Low 4.20-6.00 [facility] Comment on above: Order Comment: Speci men Type: BLOOD SPECIMEN Performed By: #### 5 8410-2 ####[facility] LABORATORYCLIA [id number] [address] [facility] WBC (Bld) [#/Vol] 12.77 10*3/uL High 3.70-11.00 [facility] Comment on above: Order Comment: Speci men Type: BLOOD SPECIMEN Performed By: #### 5 8410-2 ####[facility] LABORATORYCLIA [id number] [address] Gas and Carbon monoxide pane l (BldV)on 06-13-2021 Base excess Calc (BldV) [Moles/Vol] 5.7 mmol/L High 0-2 [facility] Comment on above: Order Comment: Speci men Type: VENOUS BLOOD SPECIMEN Performed By: #### 2 4344-4 ####[facility] LABORATORYCLIA [id number] [address] Body temperature 99.5 [degF] Normal [facility] Comment on above: Order Comment: Speci men Type: VENOUS BLOOD SPECIMEN Performed By: #### 2 4344-4 ####[facility] LABORATORYCLIA [id number] [address] [facility] CALCIUM IONIZED, PH CORRECTED 1.24 mmol/L Normal 1.08-1.30 [facility] Comment on above: Order Comment: Speci men Type: VENOUS BLOOD SPECIMEN Performed By: #### 2 4344-4 ####[facility] LABORATORYCLIA [id number] [address] [place] Calcium.ionized (BldV) [Mass/Vol] 1.23 mmol/L Normal 1.08-1.30 [facility] Comment on above: Order Comment: Speci men Type: VENOUS BLOOD SPECIMEN Performed By: #### 2 4344-4 ####[facility]ORYCLIA [id number] [address] [facility] Carboxyhemoglobin (BldV) [Mass fraction] 1.2 % Normal 0.0-2.0 [facility] Comment on above: Order Comment: Speci men Type: VENOUS BLOOD SPECIMEN Result Comment: Carb oxyhemoglobin Reference Range for Smokers: 2.0-8.0% Performed By: #### 2 4344-4 ####[facility] LABORATORYCLIA [id number] [address] CO2 (BldV) [Partial pressure] 48 mm[Hg] Normal 42-55 [facility] Comment on above: Order Comment: Speci men Type: VENOUS BLOOD SPECIMEN Performed By: #### 2 4344-4 ####[facility] LABORATORYCLIA [id number] [address] CO2 [Moles/Vol] 28.2 mmol/L Normal 25-29 [facility] Comment on above: Order Comment: Speci men Type: VENOUS BLOOD SPECIMEN Performed By: #### 2 4344-4 ####[facility]ORYCLIA [id number] [address] CO2 adjusted to patient's actual temperature (BldV) [Partial pressure] 49 mmHg Normal 42-55 [facility] Comment on above: Order Comment: Speci men Type: VENOUS BLOOD SPECIMEN Performed By: #### 2 4344-4 ####[facility] LABORATORYCLIA [id number] [address] [place] Glucose [Mass/Vol] 131 mg/dL High 60-105 [facility] Comment on above: Order Comment: Speci men Type: VENOUS BLOOD SPECIMEN Performed By: #### 2 4344-4 ####[facility]ATORYCLIA [id number] [address] [place] HCO3 (Bld) [Moles/Vol] 30.6 mmol/L High 24-28 [facility] Comment on above: Order Comment: Speci men Type: VENOUS BLOOD SPECIMEN Performed By: #### 2 4344-4 ####[facility]ORYCLIA [id number] [address] Hematocrit (Bld) [Volume fraction] 32.8 % Low 39.0-51.0 [facility] Comment on above: Order Comment: Speci men Type: VENOUS BLOOD SPECIMEN Performed By: #### 2 4344-4 ####[facility] LABORATORYCLIA [id number] [address] [place] Hemoglobin (Bld) [Mass/Vol] 10.6 g/dL Low 13.0-17.0 [facility] Comment on above: Order Comment: Speci men Type: VENOUS BLOOD SPECIMEN Performed By: #### 2 4344-4 ####[facility] LABORATORYCLIA [id number] [address] LITERS 6 Liters/min Normal [facility] Comment on above: Order Comment: Speci men Type: VENOUS BLOOD SPECIMEN Performed By: #### 2 4344-4 ####[facility] LABORATORYCLIA [id number] [address] Methemoglobin (Bld) [Mass fraction] 1.0 % Normal 0.0-1.5 [facility] Comment on above: Order Comment: Speci men Type: VENOUS BLOOD SPECIMEN Performed By: #### 2 4344-4 ####[facility] LABORATORYCLIA [id number] [address] O2 THERAPY NC = Nasal Cannula Normal [facility] Comment on above: Order Comment: Speci men Type: VENOUS BLOOD SPECIMEN Performed By: #### 2 4344-4 ####[facility]ORYCLIA [id number] [address] [place] Oxygen (BldV) [Partial pressure] 42 mm[Hg] Normal 35-45 [facility] Comment on above: Order Comment: Speci men Type: VENOUS BLOOD SPECIMEN Performed By: #### 2 4344-4 ####[facility]ATORYCLIA [id number] [address] Oxygen adjusted to patient's actual temperature (BldV) [Partial pressure] 43.8 mmHg Normal 35-45 [facility] Comment on above: Order Comment: Speci men Type: VENOUS BLOOD SPECIMEN Performed By: #### 2 4344-4 ####[facility]ATORYCLIA [id number] [address] Oxygen saturation in Blood 76.7 % Normal 60-85 [facility] Comment on above: Order Comment: Speci men Type: VENOUS BLOOD SPECIMEN Performed By: #### 2 4344-4 ####[facility]ATORYCLIA [id number] [address] Oxyhemoglobin (BldV) [Mass fraction] 75 % Normal 60-85 [facility] Comment on above: Order Comment: Speci men Type: VENOUS BLOOD SPECIMEN Performed By: #### 2 4344-4 ####[facility]ORYCLIA [id number] [address] [facility] pH (BldV) 7.42 [pH] Normal 7.32-7.42 [facility] Comment on above: Order Comment: Speci men Type: VENOUS BLOOD SPECIMEN Performed By: #### 2 4344-4 ####[facility]ATORYCLIA [id number] [address] pH adjusted to patient's actual temperature (BldV) 7.41 Normal 7.32-7.42 [facility] Comment on above: Order Comment: Speci men Type: VENOUS BLOOD SPECIMEN Performed By: #### 2 4344-4 ####[facility]ORYCLIA [id number] [address] [place] Potassium [Moles/Vol] 3.5 mmol/L Normal 3.5-5.0 [facility] Comment on above: Order Comment: Speci men Type: VENOUS BLOOD SPECIMEN Performed By: #### 2 4344-4 ####[facility]ORYCLIA [id number] [address] [place] Sodium [Moles/Vol] 157 mmol/L High 136-144 [facility] Comment on above: Order Comment: Speci men Type: VENOUS BLOOD SPECIMEN Performed By: #### 2 4344-4 ####[facility]ORYCLIA [id number] [address] [facility] Magnesium SerPl-mCncon 06-13 Magnesium [Mass/Vol] 3.0 mg/dL High 1.7-2.3 [facility] Comment on above: Order Comment: Speci men Type: BLOOD SPECIMEN Performed By: #### 2 4321-2, , 2776-05 ####[facility]ORYCLIA [id number] [address] Magnesium [Mass/Vol] 2.2 mg/dL Normal 1.7-2.3 [facility] Comment on above: Order Comment: Speci men Type: BLOOD SPECIMEN Performed By: #### 2 4321-2, 2776-05, ####[facility]ORYCLIA [id number] [address] Phosphate SerPl-mCncon 06-13 Phosphate [Mass/Vol] 2.2 mg/dL Low 2.7-4.8 [facility] Comment on above: Order Comment: Speci men Type: BLOOD SPECIMEN Performed By: #### 2 4321-2, , 2776-05 ####[facility]ORYCLIA [id number] [address] Phosphate [Mass/Vol] 1.8 mg/dL Low 2.7-4.8 [facility] Comment on above: Order Comment: Speci men Type: BLOOD SPECIMEN Performed By: #### 2 4321-2, 2776-05, ####[facility]ORYCLIA [id number] [address] [facility] XR CHEST 1V FRONTALon 2021 XR CHEST 1V FRONTAL Normal [facility] ALLIED HEALTHon 06-12-2021 ALLIED HEALTH Normal [facility] BRIEF OP NOTon 06-12-2021 BRIEF OP NOT Normal [facility] Bacteria Fld Culton 06-12-19 22 Bacteria identified Cx Nom (Body fld) CULTURE, BODY FLD: No growth 5 days GRAM STAIN: No organisms seen Moderate Polymorphonuclear leukocytes Normal [facility] Comment on above: Performed By: #### 6 11-4 ####[facility]ATORYCLIA [id number] [place] [address] [place] Basic metabolic 2000 panelon 06-12-2021 Anion gap [Moles/Vol] 6 mmol/L Low 9-18 [facility] Comment on above: Order Comment: Speci men Type: BLOOD SPECIMEN Performed By: #### 2 777-1, 54618-6, ####[facility]ORYCLIA [id number] [address] [place] Calcium [Mass/Vol] 8.7 mg/dL Normal 8.5-10.2 [facility] Comment on above: Order Comment: Speci men Type: BLOOD SPECIMEN Performed By: #### 2 777-1, 27202-8, ####[facility]ORYCLIA [id number] [place] [address] [place] Chloride [Moles/Vol] 118 mmol/L High 97-105 [facility] Comment on above: Order Comment: Speci men Type: BLOOD SPECIMEN Performed By: #### 2 777-1, 80320-8, ####[facility]ORYCLIA [id number] [place] [address] [place] CO2 [Moles/Vol] 28 mmol/L Normal 22-30 [facility] Comment on above: Order Comment: Speci men Type: BLOOD SPECIMEN Performed By: #### 2 777-1, 67437-4, ####[facility]ORYCLIA [id number] [place] [address] [place] Creatinine [Mass/Vol] 0.77 mg/dL Normal 0.73-1.22 [facility] Comment on above: Order Comment: Speci men Type: BLOOD SPECIMEN Performed By: #### 2 777-1, 99100-6, ####[facility] LABORATORYCLIA [id number] [place] [address] [place] GFR/1.73 sq M.predicted MDRD (S/P/Bld) [Vol rate/Area] mL/min/{1.73_m2} Normal [facility] Comment on above: Order Comment: Speci [...] actual GFR. Performed By: #### 2 777-1, 97654-2, 31665-3 ####[facility] [id number] [place] [address] [place] Glucose [Mass/Vol] 116 mg/dL High 74-99 [facility] Comment on above: Order Comment: Shira feldman Type: BLOOD SPECIMEN Result Comment: The [place] [employer] (ADA) provides guidance for cutoff [...] Standards of Medical Care in Diabetes 2016, [place] [employer]. Diabetes Care. 2016.39(Suppl 1). Performed By: #### 2 777-1, 11887-3, 10822-6 ####[facility] LABORATORYCLIA [id number] [place], [place] [id number] [place] [address] [place] [facility] Potassium [Moles/Vol] 4.0 mmol/L Normal 3.7-5.1 [facility] Comment on above: Order Comment: Speci men Type: BLOOD SPECIMEN Performed By: #### 2 777-1, 69715-7, ####[facility] LABORATORYCLIA [id number] [place], [place] [id number] [place] [address] [place] [facility] Sodium [Moles/Vol] 152 mmol/L High 136-144 [facility] Comment on above: Order Comment: Speci men Type: BLOOD SPECIMEN Performed By: #### 2 777-1, 09823-3, ####[facility] LABORATORYCLIA [id number] [address] Urea nitrogen [Mass/Vol] 34 mg/dL High 9-24 [facility] Comment on above: Order Comment: Speci men Type: BLOOD SPECIMEN Performed By: #### 2 777-1, 58859-3, ####[facility] LABORATORYCLIA [id number] [address] CBC panel Auto (Bld)on 06-12 Erythrocyte distribution width (RBC) [Ratio] 16.1 % High 11.5-15.0 [facility] Comment on above: Order Comment: Speci men Type: BLOOD SPECIMEN Performed By: #### 5 8410-2 ####[facility] LABORATORYCLIA [id number] [address] Hematocrit (Bld) [Volume fraction] 32.8 % Low 39.0-51.0 [facility] Comment on above: Order Comment: Speci men Type: BLOOD SPECIMEN Performed By: #### 5 8410-2 ####[facility] LABORATORYCLIA [id number] [address] STATES [facility] Hemoglobin (Bld) [Mass/Vol] 9.9 g/dL Low 13.0-17.0 [facility] Comment on above: Order Comment: Speci men Type: BLOOD SPECIMEN Performed By: #### 5 8410-2 ####[facility] LABORATORYCLIA [id number] [address] MCH (RBC) [Entitic mass] 28.4 pg Normal 26.0-34.0 [facility] Comment on above: Order Comment: Speci men Type: BLOOD SPECIMEN Performed By: #### 5 8410-2 ####[facility] LABORATORYCLIA [id number] [address] MCHC (RBC) [Mass/Vol] 30.2 g/dL Low 30.5-36.0 [facility] Comment on above: Order Comment: Speci men Type: BLOOD SPECIMEN Performed By: #### 5 8410-2 ####[facility] LABORATORYCLIA [id number] [address] MCV (RBC) [Entitic vol] 94.3 fL Normal 80.0-100.0 [facility] Comment on above: Order Comment: Speci men Type: BLOOD SPECIMEN Performed By: #### 5 8410-2 ####[facility] LABORATORYCLIA [id number] [address] Nucleated RBC (Bld) [#/Vol] 10*3/uL Normal <0.01 [facility] Comment on above: Order Comment: Speci men Type: BLOOD SPECIMEN Performed By: #### 5 8410-2 ####[facility] LABORATORYCLIA [id number] [address] Platelet mean volume (Bld) [Entitic vol] 11.2 fL Normal 9.0-12.7 [facility] Comment on above: Order Comment: Speci men Type: BLOOD SPECIMEN Performed By: #### 5 8410-2 ####[facility] LABORATORYCLIA [id number] [address] Platelets (Bld) [#/Vol] 218 10*3/uL Normal 150-400 [facility] Comment on above: Order Comment: Speci men Type: BLOOD SPECIMEN Performed By: #### 5 8410-2 ####[facility] LABORATORYCLIA [id number] [address] RBC (Bld) [#/Vol] 3.48 10*6/uL Low 4.20-6.00 [facility] Comment on above: Order Comment: Speci men Type: BLOOD SPECIMEN Performed By: #### 5 8410-2 ####[facility] LABORATORYCLIA [id number] [address] WBC (Bld) [#/Vol] 13.33 10*3/uL High 3.70-11.00 [facility] Comment on above: Order Comment: Speci men Type: BLOOD SPECIMEN Performed By: #### 5 8410-2 ####[facility] LABORATORYCLIA [id number] [address] CONSULT PROGon 06-12-2021 CONSULT PROG Normal [facility]N PL[address] PERIT/RETROP FL BIon 06-12-[address] PERIT/RETROP FL BI Normal [facility] HISTORY PHYSICALon HISTORY PHYSICAL Normal [facility] Magnesium SerPl-mCncon 06-12 Magnesium [Mass/Vol] 2.7 mg/dL High 1.7-2.3 [facility] Comment on above: Order Comment: Speci men Type: BLOOD SPECIMEN Performed By: #### 2 777-1, 42222-8, 45051-6 ####[facility] LABORATORYCLIA [id number] [address] PT panel Coag (PPP)on 2021 INR Coag (PPP) [Relative time] 1.1 {INR} Normal 0.9-1.3 [facility] Comment on above: Order Comment: Speci men Type: BLOOD SPECIMEN Result Comment: Yris min K Antagonist (VKA) Therapeutic Range: INR 2 to 3 (Target INR of 2.5)Note: For patients treated with VKA drugs, such as warfarin, the [place] [employer] 2012 Guideline recommends [...] al. Chest 2012, 141:7S-47SNishmariangel RA, et al. JAC 2017, 70: 252-289 Performed By: #### 3 4528-0 ####[facility] LABORATORYCLIA [id number] [place] [address] [place] PT Coag (PPP) [Time] 11.9 s Normal 9.7-13.0 [facility] Comment on above: Order Comment: Speci men Type: BLOOD SPECIMEN Performed By: #### 3 4528-0 ####[facility] LABORATORYCLIA [id number] [place] [address] [place] Phosphate SerPl-mCncon 06-12 Phosphate [Mass/Vol] 2.2 mg/dL Low 2.7-4.8 [facility] Comment on above: Order Comment: Speci men Type: BLOOD SPECIMEN Performed By: #### 2 777-1, 31150-9, 11319-3 ####[facility] LABORATORYCLIA [id number] [place] [address] [place] XR ABDOMEN 1V SUPINEon 06-12 XR ABDOMEN 1V SUPINE Normal [facility] ALLIED HEALTHon 06-11-2021 ALLIED HEALTH Normal [facility] Bacteria Bld Culton 06-11-19 22 Bacteria identified Cx Nom (Bld) CULTURE, BLOOD: No growth 5 days Normal [facility] Comment on above: Performed By: #### 6 00-7 ####[facility] LABORATORYCLIA [id number] [address] Bacteria identified Cx Nom (Bld) CULTURE, BLOOD: No growth 5 days Normal [facility] Comment on above: Performed By: #### 6 00-7 ####[facility] LABORATORYCLIA [id number] [address] [place] Bacteria Ur Culton 2 Bacteria identified Cx Nom (U) CULTURE, URINE: No growth (<1,000 CFU/ml) Normal [facility] Comment on above: Performed By: #### 6 30-4 ####[facility] LABORATORYCLIA [id number] [address] [place] Basic metabolic 2000 panelon 06-11-2021 Anion gap [Moles/Vol] 9 mmol/L Normal 9-18 [facility] Comment on above: Order Comment: Speci men Type: BLOOD SPECIMEN Performed By: #### 1 9123-9, 2777-, 06121-1 ####[facility] LABORATORYCLIA [id number] [address] [place] Calcium [Mass/Vol] 8.5 mg/dL Normal 8.5-10.2 [facility] Comment on above: Order Comment: Speci men Type: BLOOD SPECIMEN Performed By: #### 1 9123-9, 2776-05, 85688-2 ####[facility] LABORATORYCLIA [id number] [address] [place] Chloride [Moles/Vol] 118 mmol/L High 97-105 [facility] Comment on above: Order Comment: Speci men Type: BLOOD SPECIMEN Performed By: #### 1 9123-9, 2777-1, 52555-8 ####[facility] LABORATORYCLIA [id number] [place] [address] [place] CO2 [Moles/Vol] 27 mmol/L Normal 22-30 [facility] Comment on above: Order Comment: Speci men Type: BLOOD SPECIMEN Performed By: #### 1 9123-9, 277-, 17322-3 ####[facility] LABORATORYCLIA [id number] [place] [address] [place] Creatinine [Mass/Vol] 0.75 mg/dL Normal 0.73-1.22 [facility] Comment on above: Order Comment: Speci men Type: BLOOD SPECIMEN Performed By: #### 1 9123-9, 2777-1, 40306-1 ####[facility] LABORATORYCLIA [id number] [place] [address] [place] GFR/1.73 sq M.predicted MDRD (S/P/Bld) [Vol rate/Area] mL/min/{1.73_m2} Normal [facility] Comment on above: Order Comment: Spec men Type: BLOOD SPECIMEN Result Comment: >60e [...] GFR. Performed By: #### 1 9123-9, 2777-1, 12176-9 ####[facility] [id number] [place] [address] [place] Glucose [Mass/Vol] 142 mg/dL High 74-99 [facility] Comment on above: Order Comment: Speci [facility] Type: BLOOD SPECIMEN Result Comment: The [place] [employer] (ADA) provides guidance for cutoff [...] Standards of Medical Care in Diabetes 2016, [place] [employer]. Diabetes Care. 2016.39(Suppl 1). Performed By: #### 1 9123-9, 2777-1, 90997-4 ####[facility] LABORATORYCLIA [id number] [address] Potassium [Moles/Vol] 3.6 mmol/L Low 3.7-5.1 [facility] Comment on above: Order Comment: Speci men Type: BLOOD SPECIMEN Performed By: #### 1 9123-9, 277-, 69703-5 ####[facility] LABORATORYCLIA [id number] [address] Sodium [Moles/Vol] 154 mmol/L High 136-144 [facility] Comment on above: Order Comment: Speci men Type: BLOOD SPECIMEN Performed By: #### 1 9123-9, 277-, 46538-2 ####[facility] LABORATORYCLIA [id number] [address] Urea nitrogen [Mass/Vol] 31 mg/dL High 9-24 [facility] Comment on above: Order Comment: Speci men Type: BLOOD SPECIMEN Performed By: #### 1 9123-9, 2777-1, 61757-0 ####[facility] LABORATORYCLIA [id number] [address] C diff Tox gens Stl Ql MEGAN+p robeon 06-11-2021 C. difficile toxin genes MEGAN+probe Ql (Stl) Negative Normal Negative for C. difficile toxin by PCR [facility] Comment on above: Order Comment: Speci men Type: STOOL SPECIMEN Performed By: #### 5 4067-4 ####[facility]ORATORYCLIA [id number] [address] CBC W Auto Differential pane l (Bld)on 06-11-2021 Basophils (Bld) [#/Vol] 0.03 10*3/uL Normal <0.11 [facility] Comment on above: Order Comment: Speci men Type: BLOOD SPECIMEN Performed By: #### 5 7021-8 ####[facility]ORYCLIA [id number] [address] Basophils/100 WBC (Bld) 0.2 % Normal [facility] Comment on above: Order Comment: Speci men Type: BLOOD SPECIMEN Performed By: #### 5 7021-8 ####[facility]ORYCLIA [id number] [address] Differential cell count method Nom (Bld) Auto Normal [facility] Comment on above: Order Comment: Speci men Type: BLOOD SPECIMEN Performed By: #### 5 7021-8 ####[facility]ORYCLIA [id number] [address] Eosinophils (Bld) [#/Vol] 0.19 10*3/uL Normal <0.46 [facility] Comment on above: Order Comment: Speci men Type: BLOOD SPECIMEN Performed By: #### 5 7021-8 ####[facility]ORYCLIA [id number] [address] Eosinophils/100 WBC (Bld) 1.5 % Normal [facility] Comment on above: Order Comment: Speci men Type: BLOOD SPECIMEN Performed By: #### 5 7021-8 ####[facility]ORYCLIA [id number] [address] Erythrocyte distribution width (RBC) [Ratio] 16.3 % High 11.5-15.0 [facility] Comment on above: Order Comment: Speci men Type: BLOOD SPECIMEN Performed By: #### 5 7021-8 ####[facility]ORYCLIA [id number] [address] Hematocrit (Bld) [Volume fraction] 32.1 % Low 39.0-51.0 [facility] Comment on above: Order Comment: Speci men Type: BLOOD SPECIMEN Performed By: #### 5 7021-8 ####[facility]ORATORYCLIA [id number] [address] Hemoglobin (Bld) [Mass/Vol] 9.3 g/dL Low 13.0-17.0 [facility] Comment on above: Order Comment: Speci men Type: BLOOD SPECIMEN Performed By: #### 5 7021-8 ####[facility] LABORATORYCLIA [id number] [address] IMMATURE GRAN % 0.6 % Normal [facility] Comment on above: Order Comment: Speci men Type: BLOOD SPECIMEN Performed By: #### 5 7021-8 ####[facility]ORATORYCLIA [id number] [address] IMMATURE GRAN ABS 0.08 k/uL Normal <0.10 [facility] Comment on above: Order Comment: Speci men Type: BLOOD SPECIMEN Performed By: #### 5 7021-8 ####[facility]ORATORYCLIA [id number] [address] Lymphocytes (Bld) [#/Vol] 1.65 10*3/uL Normal 1.00-4.00 [facility] Comment on above: Order Comment: Speci men Type: BLOOD SPECIMEN Performed By: #### 5 7021-8 ####[facility] LABORATORYCLIA [id number] [address] Lymphocytes/100 WBC (Bld) 12.8 % Normal [facility] Comment on above: Order Comment: Speci men Type: BLOOD SPECIMEN Performed By: #### 5 7021-8 ####[facility] LABORATORYCLIA [id number] [address] MCH (RBC) [Entitic mass] 27.2 pg Normal 26.0-34.0 [facility] Comment on above: Order Comment: Speci men Type: BLOOD SPECIMEN Performed By: #### 5 7021-8 ####[facility] LABORATORYCLIA [id number] [address] MCHC (RBC) [Mass/Vol] 29.0 g/dL Low 30.5-36.0 [facility] Comment on above: Order Comment: Speci men Type: BLOOD SPECIMEN Performed By: #### 5 7021-8 ####[facility]ORYCLIA [id number] [address] MCV (RBC) [Entitic vol] 93.9 fL Normal 80.0-100.0 [facility] Comment on above: Order Comment: Speci men Type: BLOOD SPECIMEN Performed By: #### 5 7021-8 ####[facility] LABORATORYCLIA [id number] [address] Monocytes (Bld) [#/Vol] 0.68 10*3/uL Normal <0.87 [facility] Comment on above: Order Comment: Speci men Type: BLOOD SPECIMEN Performed By: #### 5 7021-8 ####[facility] LABORATORYCLIA [id number] [address] Monocytes/100 WBC (Bld) 5.3 % Normal [facility] Comment on above: Order Comment: Speci men Type: BLOOD SPECIMEN Performed By: #### 5 7021-8 ####[facility] LABORATORYCLIA [id number] [address] [facility] Neutrophils (Bld) [#/Vol] 10.22 10*3/uL High 1.45-7.50 [facility] Comment on above: Order Comment: Speci men Type: BLOOD SPECIMEN Performed By: #### 5 7021-8 ####[facility]ORYCLIA [id number] [address] [place] Neutrophils/100 WBC (Bld) 79.6 % Normal [facility] Comment on above: Order Comment: Speci men Type: BLOOD SPECIMEN Performed By: #### 5 7021-8 ####[facility]ATORYCLIA [id number] [address] [place] Nucleated RBC (Bld) [#/Vol] 10*3/uL Normal <0.01 [facility] Comment on above: Order Comment: Speci men Type: BLOOD SPECIMEN Performed By: #### 5 7021-8 ####[facility] LABORATORYCLIA [id number] [address] Nucleated RBC/100 WBC (Bld) [Ratio] 0.0 /100 WBC Normal 0.0 [facility] Comment on above: Order Comment: Speci men Type: BLOOD SPECIMEN Performed By: #### 5 7021-8 ####[facility] LABORATORYCLIA [id number] [address] Platelet mean volume (Bld) [Entitic vol] 11.1 fL Normal 9.0-12.7 [facility] Comment on above: Order Comment: Speci men Type: BLOOD SPECIMEN Performed By: #### 5 7021-8 ####[facility] LABORATORYCLIA [id number] [address] Platelets (Bld) [#/Vol] 188 10*3/uL Normal 150-400 [facility] Comment on above: Order Comment: Speci men Type: BLOOD SPECIMEN Performed By: #### 5 7021-8 ####[facility] LABORATORYCLIA [id number] [address] RBC (Bld) [#/Vol] 3.42 10*6/uL Low 4.20-6.00 [facility] Comment on above: Order Comment: Speci men Type: BLOOD SPECIMEN Performed By: #### 5 7021-8 ####[facility] LABORATORYCLIA [id number] [address] WBC (Bld) [#/Vol] 12.85 10*3/uL High 3.70-11.00 [facility] Comment on above: Order Comment: Speci men Type: BLOOD SPECIMEN Performed By: #### 5 7021-8 ####[facility] LABORATORYCLIA [id number] [address] CBC panel Auto (Bld)on 06-11 Erythrocyte distribution width (RBC) [Ratio] 16.2 % High 11.5-15.0 [facility] Comment on above: Order Comment: Speci men Type: BLOOD SPECIMEN Performed By: #### 5 8410-2 ####[facility] LABORATORYCLIA [id number] [address] Hematocrit (Bld) [Volume fraction] 34.5 % Low 39.0-51.0 [facility] Comment on above: Order Comment: Speci men Type: BLOOD SPECIMEN Performed By: #### 5 8410-2 ####[facility] LABORATORYCLIA [id number] [address] Hemoglobin (Bld) [Mass/Vol] 10.3 g/dL Low 13.0-17.0 [facility] Comment on above: Order Comment: Speci men Type: BLOOD SPECIMEN Performed By: #### 5 8410-2 ####[facility] LABORATORYCLIA [id number] [address] MCH (RBC) [Entitic mass] 28.1 pg Normal 26.0-34.0 [facility] Comment on above: Order Comment: Speci men Type: BLOOD SPECIMEN Performed By: #### 5 8410-2 ####[facility] LABORATORYCLIA [id number] [address] MCHC (RBC) [Mass/Vol] 29.9 g/dL Low 30.5-36.0 [facility] Comment on above: Order Comment: Speci men Type: BLOOD SPECIMEN Performed By: #### 5 8410-2 ####[facility] LABORATORYCLIA [id number] [address] MCV (RBC) [Entitic vol] 94.3 fL Normal 80.0-100.0 [facility] Comment on above: Order Comment: Speci men Type: BLOOD SPECIMEN Performed By: #### 5 8410-2 ####[facility] LABORATORYCLIA [id number] [address] Nucleated RBC (Bld) [#/Vol] 10*3/uL Normal <0.01 [facility] Comment on above: Order Comment: Speci men Type: BLOOD SPECIMEN Performed By: #### 5 8410-2 ####[facility] LABORATORYCLIA [id number] [address] Platelet mean volume (Bld) [Entitic vol] 10.9 fL Normal 9.0-12.7 [facility] Comment on above: Order Comment: Speci men Type: BLOOD SPECIMEN Performed By: #### 5 8410-2 ####[facility] LABORATORYCLIA [id number] [address] Platelets (Bld) [#/Vol] 210 10*3/uL Normal 150-400 [facility] Comment on above: Order Comment: Speci men Type: BLOOD SPECIMEN Performed By: #### 5 8410-2 ####[facility] LABORATORYCLIA [id number] [address] RBC (Bld) [#/Vol] 3.66 10*6/uL Low 4.20-6.00 [facility] Comment on above: Order Comment: Speci men Type: BLOOD SPECIMEN Performed By: #### 5 8410-2 ####[facility] LABORATORYCLIA [id number] [address] WBC (Bld) [#/Vol] 13.03 10*3/uL High 3.70-11.00 [facility] Comment on above: Order Comment: Speci men Type: BLOOD SPECIMEN Performed By: #### 5 8410-2 ####[facility] LABORATORYCLIA [id number] [address] CONSULT PROGon 06-11-2021 CONSULT PROG Normal [facility] CONSULT PROG Normal [facility] CONSULT PROG Normal [facility] CT ABD/PEL W IVCONon 022 CT ABD/PEL W IVCON Invalid Interpretation Code [facility] Magnesium SerPl-mCncon 06-11 Magnesium [Mass/Vol] 2.7 mg/dL High 1.7-2.3 [facility] Comment on above: Order Comment: Speci men Type: BLOOD SPECIMEN Performed By: #### 1 9123-9, 2776-1, 88637-8 ####[facility]ORATORYCLIA [id number] [place] [address] [place] Phosphate SerPl-mCncon 06-11 Phosphate [Mass/Vol] 2.5 mg/dL Low 2.7-4.8 [facility] Comment on above: Order Comment: Speci men Type: BLOOD SPECIMEN Performed By: #### 1 9123-9, 2776-05, 34567-2 ####[facility]ATORYCLIA [id number] [address] [place] Basic metabolic 2000 panelon 06-10-2021 Anion gap [Moles/Vol] 7 mmol/L Low 9-18 [facility] Comment on above: Order Comment: Speci men Type: BLOOD SPECIMEN Performed By: #### 2 777-1, 99781-7, , HFP ####[facility]ATORYCLIA [id number] [place] [address] [place] Calcium [Mass/Vol] 8.5 mg/dL Normal 8.5-10.2 [facility] Comment on above: Order Comment: Speci men Type: BLOOD SPECIMEN Performed By: #### 2 777-1, 18067-6, , HFP ####[facility]ORYCLIA [id number] [place] [address] [place] Chloride [Moles/Vol] 118 mmol/L High 97-105 [facility] Comment on above: Order Comment: Speci men Type: BLOOD SPECIMEN Performed By: #### 2 777-1, 21578-4, , HFP ####[facility]ORYCLIA [id number] [place] [address] [place] CO2 [Moles/Vol] 26 mmol/L Normal 22-30 [facility] Comment on above: Order Comment: Speci men Type: BLOOD SPECIMEN Performed By: #### 2 777-1, 40669-2, , [facility] ####[facility] LABORATORYCLIA [id number] [place] [address] [place] Creatinine [Mass/Vol] 0.70 mg/dL Low 0.73-1.22 [facility] Comment on above: Order Comment: Speci men Type: BLOOD SPECIMEN Performed By: #### 2 777-1, 31050-7, , [facility] ####[facility] LABORATORYCLIA [id number] [place] [address] [place] GFR/1.73 sq M.predicted MDRD (S/P/Bld) [Vol rate/Area] mL/min/{1.73_m2} Normal [facility] Comment on above: Order Comment: Speci [...] actual GFR. Performed By: #### 2 777-1, 56465-1, , [facility] ####[facility] LABORATORYIA [id number] [place] [address] [place] Glucose [Mass/Vol] 135 mg/dL High 74-99 [facility] Comment on above: Order Comment: Speci men Type: BLOOD SPECIMEN Result Comment: The [place] Diabetes Association (ADA) provides guidance for cutoff [...] Standards of Medical Care in Diabetes 2016, [place] [employer]. Diabetes Care. 2016.39(Suppl 1). Performed By: #### 2 777-1, 24860-2, , [facility] ####[facility] LABORATORYCLIA [id number] [address] [place] [facility] Potassium [Moles/Vol] 3.9 mmol/L Normal 3.7-5.1 [facility] Comment on above: Order Comment: Speci men Type: BLOOD SPECIMEN Performed By: #### 2 777-1, 71335-0, , [facility] ####[facility] LABORATORYCLIA [id number] [address] [place] [facility] Sodium [Moles/Vol] 151 mmol/L High 136-144 [facility] Comment on above: Order Comment: Speci men Type: BLOOD SPECIMEN Performed By: #### 2 777-1, 23257-7, , [facility] ####[facility] LABORATORYCLIA [id number] [address] Urea nitrogen [Mass/Vol] 27 mg/dL High 9-24 [facility] Comment on above: Order Comment: Speci men Type: BLOOD SPECIMEN Performed By: #### 2 777-1, 61146-1, , [facility] ####[facility] LABORATORYCLIA [id number] [address] [place] CASE MANAGEMon 06-10-2021 CASE MANAGEM Normal [facility] CBC panel Auto (Bld)on 06-10 Erythrocyte distribution width (RBC) [Ratio] 16.2 % High 11.5-15.0 [facility] Comment on above: Order Comment: Speci men Type: BLOOD SPECIMEN Performed By: #### 5 8410-2 ####[facility]ORATORYCLIA [id number] [address] Hematocrit (Bld) [Volume fraction] 34.8 % Low 39.0-51.0 [facility] Comment on above: Order Comment: Speci men Type: BLOOD SPECIMEN Performed By: #### 5 8410-2 ####[facility] LABORATORYCLIA [id number] [address] Hemoglobin (Bld) [Mass/Vol] 10.2 g/dL Low 13.0-17.0 [facility] Comment on above: Order Comment: Speci men Type: BLOOD SPECIMEN Performed By: #### 5 8410-2 ####[facility] LABORATORYCLIA [id number] [address] MCH (RBC) [Entitic mass] 27.1 pg Normal 26.0-34.0 [facility] Comment on above: Order Comment: Speci men Type: BLOOD SPECIMEN Performed By: #### 5 8410-2 ####[facility] LABORATORYCLIA [id number] [address] MCHC (RBC) [Mass/Vol] 29.3 g/dL Low 30.5-36.0 [facility] Comment on above: Order Comment: Speci men Type: BLOOD SPECIMEN Performed By: #### 5 8410-2 ####[facility] LABORATORYCLIA [id number] [address] MCV (RBC) [Entitic vol] 92.6 fL Normal 80.0-100.0 [facility] Comment on above: Order Comment: Speci men Type: BLOOD SPECIMEN Performed By: #### 5 8410-2 ####[facility] LABORATORYCLIA [id number] [address] Nucleated RBC (Bld) [#/Vol] 10*3/uL Normal <0.01 [facility] Comment on above: Order Comment: Speci men Type: BLOOD SPECIMEN Performed By: #### 5 8410-2 ####[facility] LABORATORYCLIA [id number] [address] Platelet mean volume (Bld) [Entitic vol] 10.4 fL Normal 9.0-12.7 [facility] Comment on above: Order Comment: Speci men Type: BLOOD SPECIMEN Performed By: #### 5 8410-2 ####[facility] LABORATORYCLIA [id number] [address] Platelets (Bld) [#/Vol] 206 10*3/uL Normal 150-400 [facility] Comment on above: Order Comment: Speci men Type: BLOOD SPECIMEN Performed By: #### 5 8410-2 ####[facility] LABORATORYCLIA [id number] [address] RBC (Bld) [#/Vol] 3.76 10*6/uL Low 4.20-6.00 [facility] Comment on above: Order Comment: Speci men Type: BLOOD SPECIMEN Performed By: #### 5 8410-2 ####[facility] LABORATORYCLIA [id number] [address] WBC (Bld) [#/Vol] 11.36 10*3/uL High 3.70-11.00 [facility] Comment on above: Order Comment: Speci men Type: BLOOD SPECIMEN Performed By: #### 5 8410-2 ####[facility] LABORATORYCLIA [id number] [address] HEPATIC FUNCTION PNLon 06-10 Albumin [Mass/Vol] 3.1 g/dL Low 3.9-4.9 [facility] Comment on above: Order Comment: Speci men Type: BLOOD SPECIMEN Performed By: #### 2 777-1, 73354-0, 82151-5, HFP ####[facility]ORYCLIA [id number] [address] ALP [Catalytic activity/Vol] 73 U/L Normal 38-113 [facility] Comment on above: Order Comment: Speci men Type: BLOOD SPECIMEN Performed By: #### 2 777-1, 19863-1, , HFP ####[facility]ATORYCLIA [id number] [place], [place] [id number] [place] [address] ALT With P-5'-P [Catalytic activity/Vol] 64 U/L High 10-54 [facility] Comment on above: Order Comment: Speci men Type: BLOOD SPECIMEN Performed By: #### 2 777-1, 52958-5, , HFP ####[facility]ATORYCLIA [id number] [place], [place] [id number] [place] [address] AST With P-5'-P [Catalytic activity/Vol] 44 U/L High 14-40 [facility] Comment on above: Order Comment: Speci men Type: BLOOD SPECIMEN Performed By: #### 2 777-1, 59694-7, , HFP ####[facility]ORYCLIA [id number] [address] Bilirubin [Mass/Vol] 0.5 mg/dL Normal 0.2-1.3 [facility] Comment on above: Order Comment: Speci men Type: BLOOD SPECIMEN Performed By: #### 2 777-1, , , HFP ####[facility]ORYCLIA [id number] [address] Bilirubin.conjugated [Mass/Vol] mg/dL Normal <0.2 [facility] Comment on above: Order Comment: Speci men Type: BLOOD SPECIMEN Performed By: #### 2 777-1, 21249-5, , HFP ####[facility]ORYCLIA [id number] [address] Protein [Mass/Vol] 5.7 g/dL Low 6.3-8.0 [facility] Comment on above: Order Comment: Speci men Type: BLOOD SPECIMEN Performed By: #### 2 777-1, 54434-1, , HFP ####[facility]ORATORYCLIA [id number] [place] [id number] [place] LEVETIRACETAMon 06-10-2021 levETIRAcetam [Mass/Vol] 57.7 ug/mL High 12.0-46.0 [facility] Comment on above: Order Comment: Speci [...] developed and its performance characteristics determined by [facility]'s [facility] ( [facility]). It has not been cleared or approved by the FDA. [facility] is regulated under CLIA as qualified to perform high complexity testing. This test is used for clinical purposes. It should not be regarded as investigational or for research. Performed By: #### L EVET ####[facility] LABCLIA [id number] [facility] [id number] [address] [place] Magnesium SerPl-mCncon 06-10 Magnesium [Mass/Vol] 2.7 mg/dL High 1.7-2.3 [facility] Comment on above: Order Comment: Speci men Type: BLOOD SPECIMEN Performed By: #### 2 777-1, 14063-9, , [facility] ####[facility] LABORATORYCLIA [id number] [place] [address] [place] Phosphate SerPl-mCncon 06-10 Phosphate [Mass/Vol] 1.8 mg/dL Low 2.7-4.8 [facility] Comment on above: Order Comment: Speci men Type: BLOOD SPECIMEN Performed By: #### 2 777-1, 01378-1, , [facility] ####[facility] LABORATORYCLIA [id number] [place] [address] [place] ALLIED HEALTHon 06-09-2021 ALLIED HEALTH Normal [facility] ALLIED HEALTH Normal [facility] ALLIED HEALTH Normal [facility] ALLIED HEALTH Normal [facility] Basic metabolic 2000 panelon 06-09-2021 Anion gap [Moles/Vol] 8 mmol/L Low 9-18 [facility] Comment on above: Order Comment: Speci men Type: BLOOD SPECIMEN Performed By: #### 2 4321-2, 2776-05, ####[facility]ORYCLIA [id number] [place] [address] [place] Calcium [Mass/Vol] 8.3 mg/dL Low 8.5-10.2 [facility] Comment on above: Order Comment: Speci men Type: BLOOD SPECIMEN Performed By: #### 2 4321-2, 2776-05, ####[facility] LABORATORYCLIA [id number] [place] [address] [place] Chloride [Moles/Vol] 116 mmol/L High 97-105 [facility] Comment on above: Order Comment: Speci men Type: BLOOD SPECIMEN Performed By: #### 2 4321-2, 2776-05, ####[facility]ORYCLIA [id number] [place] [address] [place] CO2 [Moles/Vol] 27 mmol/L Normal 22-30 [facility] Comment on above: Order Comment: Speci men Type: BLOOD SPECIMEN Performed By: #### 2 4321-2, 2776-05, ####[facility]ORYCLIA [id number] [place] [address] [place] Creatinine [Mass/Vol] 0.70 mg/dL Low 0.73-1.22 [facility] Comment on above: Order Comment: Speci men Type: BLOOD SPECIMEN Performed By: #### 2 4321-2, 2776-05, ####[facility]ORYCLIA [id number] [place] [address] [place] GFR/1.73 sq M.predicted MDRD (S/P/Bld) [Vol rate/Area] mL/min/{1.73_m2} Normal [facility] Comment on above: Order Comment: Speci [...] GFR. Performed By: #### 2 4321-2, 2777-, ####[facility] LABORATORYCLIA [id number] [place] [address] [place] Glucose [Mass/Vol] 123 mg/dL High 74-99 [facility] Comment on above: Order Comment: Speccara feldman Type: BLOOD SPECIMEN Result Comment: The [place] Diabetes Association (ADA) provides guidance for cutoff [...] Standards of Medical Care in Diabetes 2016, [place] [employer]. Diabetes Care. 2016.39(Suppl 1). Performed By: #### 2 4321-2, 2777-, ####[facility] LABORATORYCLIA [id number] [place] [id number] [place] Potassium [Moles/Vol] 3.5 mmol/L Low 3.7-5.1 [facility] Comment on above: Order Comment: Speci men Type: BLOOD SPECIMEN Performed By: #### 2 4321-2, 7-1, ####[facility]ORYCLIA [id number] [address] Sodium [Moles/Vol] 151 mmol/L High 136-144 [facility] Comment on above: Order Comment: Speci men Type: BLOOD SPECIMEN Performed By: #### 2 4321-2, 2776-, ####[facility]ORYCLIA [id number] [address] Urea nitrogen [Mass/Vol] 39 mg/dL High 9-24 [facility] Comment on above: Order Comment: Speci men Type: BLOOD SPECIMEN Performed By: #### 2 4321-2, 2776-05, ####[facility] LABORATORYCLIA [id number] [address] CBC panel Auto (Bld)on 06-09 Erythrocyte distribution width (RBC) [Ratio] 16.2 % High 11.5-15.0 [facility] Comment on above: Order Comment: Speci men Type: BLOOD SPECIMEN Performed By: #### 5 8410-2 ####[facility] LABORATORYCLIA [id number] [address] Hematocrit (Bld) [Volume fraction] 33.7 % Low 39.0-51.0 [facility] Comment on above: Order Comment: Speci men Type: BLOOD SPECIMEN Performed By: #### 5 8410-2 ####[facility] LABORATORYCLIA [id number] [address] Hemoglobin (Bld) [Mass/Vol] 10.2 g/dL Low 13.0-17.0 [facility] Comment on above: Order Comment: Speci men Type: BLOOD SPECIMEN Performed By: #### 5 8410-2 ####[facility] LABORATORYCLIA [id number] [address] MCH (RBC) [Entitic mass] 27.4 pg Normal 26.0-34.0 [facility] Comment on above: Order Comment: Speci men Type: BLOOD SPECIMEN Performed By: #### 5 8410-2 ####[facility] LABORATORYCLIA [id number] [address] MCHC (RBC) [Mass/Vol] 30.3 g/dL Low 30.5-36.0 [facility] Comment on above: Order Comment: Speci men Type: BLOOD SPECIMEN Performed By: #### 5 8410-2 ####[facility] LABORATORYCLIA [id number] [address] MCV (RBC) [Entitic vol] 90.6 fL Normal 80.0-100.0 [facility] Comment on above: Order Comment: Speci men Type: BLOOD SPECIMEN Performed By: #### 5 8410-2 ####[facility] LABORATORYCLIA [id number] [address] Nucleated RBC (Bld) [#/Vol] 10*3/uL Normal <0.01 [facility] Comment on above: Order Comment: Speci men Type: BLOOD SPECIMEN Performed By: #### 5 8410-2 ####[facility] LABORATORYCLIA [id number] [address] Platelet mean volume (Bld) [Entitic vol] 10.3 fL Normal 9.0-12.7 [facility] Comment on above: Order Comment: Speci men Type: BLOOD SPECIMEN Performed By: #### 5 8410-2 ####[facility] LABORATORYCLIA [id number] [address] Platelets (Bld) [#/Vol] 219 10*3/uL Normal 150-400 [facility] Comment on above: Order Comment: Speci men Type: BLOOD SPECIMEN Performed By: #### 5 8410-2 ####[facility] LABORATORYCLIA [id number] [address] RBC (Bld) [#/Vol] 3.72 10*6/uL Low 4.20-6.00 [facility] Comment on above: Order Comment: Speci men Type: BLOOD SPECIMEN Performed By: #### 5 8410-2 ####[facility] LABORATORYCLIA [id number] [address] [place] [facility] WBC (Bld) [#/Vol] 13.02 10*3/uL High 3.70-11.00 [facility] Comment on above: Order Comment: Speci men Type: BLOOD SPECIMEN Performed By: #### 5 8410-2 ####[facility] LABORATORYCLIA [id number] [address] CONSULT PROGon 06-09-2021 CONSULT PROG Normal [facility] CONSULT PROG Normal [facility] CT BRAIN WO IVCONon 06-09-[address] BRAIN WO IVCON Normal [facility] Magnesium SerPl-mCncon 06-09 Magnesium [Mass/Vol] 2.8 mg/dL High 1.7-2.3 [facility] Comment on above: Order Comment: Speci men Type: BLOOD SPECIMEN Performed By: #### 2 4321-2, 2776-05, ####[facility] LABORATORYCLIA [id number] [address] NURSING PROGon 06-09-2021 NURSING PROG Normal [facility] NUTRITIONon 06-09-2021 NUTRITION Normal [facility] PT EDon 06-09-2021 PT ED Normal [facility] Phosphate SerPl-mCncon 06-09 Phosphate [Mass/Vol] 2.2 mg/dL Low 2.7-4.8 [facility] Comment on above: Order Comment: Speci men Type: BLOOD SPECIMEN Performed By: #### 2 4321-2, 2777-1, ####[facility]ORYCLIA [id number] [address] [place] Vancomycin random [Mass/Vol] on 06-09-2021 Vancomycin [Mass/Vol] 18.9 ug/mL Normal 10.0-20.0 [facility] Comment on above: Order Comment: Speci men Type: BLOOD SPECIMEN Result Comment: Refe rence ranges and high/low indicator flags are provided as general guidelines only. The treating physician must determine appropriate target levels/dosing based on the specific clinical situation. Performed By: #### 4 091-5 ####[facility] LABORATORYCLIA [id number] [address] [place] XR ABD 2V SUPINE W UPR/DECUB /CTLon 06-09-2021 XR ABD 2V SUPINE W UPR/DECUB/CTL Normal [facility] XR CHEST 1V FRONTALon 2021 XR CHEST 1V FRONTAL Normal [facility] XR NECK SOFT TISSUE 2V AP/LA Ton 06-09-2021 XR NECK SOFT TISSUE 2V AP/LAT Normal [facility] XR SKULL 2V AP/LATon 022 XR SKULL 2V AP/LAT Normal [facility] ALLIED HEALTHon 06-08-2021 ALLIED HEALTH Normal [facility] ANES POSTPROC EVALon 022 ANES POSTPROC EVAL Normal [facility] ANES PRE-OPon 06-08-2021 ANES PRE-OP Normal [facility] BRIEF OP NOTon 06-08-2021 BRIEF OP NOT Normal [facility] Bacteria Spec Anaerobe Culto n 06-08-2021 Bacteria identified Anaer cx Nom (Unsp spec) ORGANISM ID: 1 Rare Staphylococcus saccharolyticus Identification performed by [facility] [employer] [facility] See scanned document for susceptibility report Normal [facility] Comment on above: Performed By: #### 6 462-6 635-3 ####[facility] LABORATORYCLIA [id number] [address] Bacteria Wnd Culton 06-08-19 22 Bacteria identified Cx Nom (Wound) CULTURE, INTRAOPERATIVE HARDWARE: No growth 5 days GRAM STAIN: Not performed on specimen type Normal [facility] Comment on above: Performed By: #### 6 462-6 635-3 ####[facility] LABORATORYCLIA [id number] [place] [address] [place] Basic metabolic 2000 panelon 06-08-2021 Anion gap [Moles/Vol] 9 mmol/L Normal 9-18 [facility] Comment on above: Order Comment: Speci men Type: BLOOD SPECIMEN Performed By: #### 2 4321-2, 7-1, ####[facility] LABORATORYCLIA [id number] [address] [place] Calcium [Mass/Vol] 8.7 mg/dL Normal 8.5-10.2 [facility] Comment on above: Order Comment: Speci men Type: BLOOD SPECIMEN Performed By: #### 2 4321-2, 2776-05, ####[facility] LABORATORYCLIA [id number] [address] [place] [facility] Chloride [Moles/Vol] 113 mmol/L High 97-105 [facility] Comment on above: Order Comment: Speci men Type: BLOOD SPECIMEN Performed By: #### 2 4321-2, 2776-05, ####[facility] LABORATORYCLIA [id number] [address] [place] [facility] CO2 [Moles/Vol] 26 mmol/L Normal 22-30 [facility] Comment on above: Order Comment: Speci men Type: BLOOD SPECIMEN Performed By: #### 2 4321-2, 2776-05, ####[facility] LABORATORYCLIA [id number] [place] [address] [place] Creatinine [Mass/Vol] 0.68 mg/dL Low 0.73-1.22 [facility] Comment on above: Order Comment: Speci men Type: BLOOD SPECIMEN Performed By: #### 2 4321-2, 2776-05, ####[facility]ORYCLIA [id number] [place] [address] [place] GFR/1.73 sq M.predicted MDRD (S/P/Bld) [Vol rate/Area] mL/min/{1.73_m2} Normal [facility] Comment on above: Order Comment: Speci [...] GFR. Performed By: #### 2 4321-2, 2776-05, ####[facility]ITALCLIA [id number] [place] [address] [place] Glucose [Mass/Vol] 146 mg/dL High 74-99 [facility] Comment on above: Order Comment: Speci men Type: BLOOD SPECIMEN Result Comment: The [place] [employer] (ADA) provides guidance for cutoff [...] Standards of Medical Care in Diabetes 2016, [place] [employer]. Diabetes Care. 2016.39(Suppl 1). Performed By: #### 2 4321-2, 2777-, ####[facility] LABORATORYCLIA [id number] [place] [address] [place] Potassium [Moles/Vol] 3.6 mmol/L Low 3.7-5.1 [facility] Comment on above: Order Comment: Speci [facility] Type: BLOOD SPECIMEN Performed By: #### 2 4321-2, 27711-04, ####[facility]ATORYCLIA [id number] [place] [address] [place] Sodium [Moles/Vol] 148 mmol/L High 136-144 [facility] Comment on above: Order Comment: Speci men Type: BLOOD SPECIMEN Performed By: #### 2 4321-2, 2776-05, ####[facility] LABORATORYCLIA [id number] [place] [address] [place] [facility] Urea nitrogen [Mass/Vol] 36 mg/dL High 9-24 [facility] Comment on above: Order Comment: Speci men Type: BLOOD SPECIMEN Performed By: #### 2 4321-2, 2776-05, ####[facility] LABORATORYCLIA [id number] [place], [place] [id number] [place] [address] CASE MANAGEMon 06-08-2021 CASE MANAGEM Normal [facility] CBC panel Auto (Bld)on 06-08 Erythrocyte distribution width (RBC) [Ratio] 16.0 % High 11.5-15.0 [facility] Comment on above: Order Comment: Speci men Type: BLOOD SPECIMEN Performed By: #### 5 8410-2 ####[facility] LABORATORYCLIA [id number] [address] Hematocrit (Bld) [Volume fraction] 38.4 % Low 39.0-51.0 [facility] Comment on above: Order Comment: Speci men Type: BLOOD SPECIMEN Performed By: #### 5 8410-2 ####[facility] LABORATORYCLIA [id number] [place], [place] [id number] [place] [address] [place] [facility] Hemoglobin (Bld) [Mass/Vol] 12.1 g/dL Low 13.0-17.0 [facility] Comment on above: Order Comment: Speci men Type: BLOOD SPECIMEN Performed By: #### 5 8410-2 ####[facility] LABORATORYCLIA [id number] [place], [place] [id number] [place] [address] [place] [facility] MCH (RBC) [Entitic mass] 28.3 pg Normal 26.0-34.0 [facility] Comment on above: Order Comment: Speci men Type: BLOOD SPECIMEN Performed By: #### 5 8410-2 ####[facility] LABORATORYCLIA [id number] [address] MCHC (RBC) [Mass/Vol] 31.5 g/dL Normal 30.5-36.0 [facility] Comment on above: Order Comment: Speci men Type: BLOOD SPECIMEN Performed By: #### 5 8410-2 ####[facility] LABORATORYCLIA [id number] [address] MCV (RBC) [Entitic vol] 89.9 fL Normal 80.0-100.0 [facility] Comment on above: Order Comment: Speci men Type: BLOOD SPECIMEN Performed By: #### 5 8410-2 ####[facility] LABORATORYCLIA [id number] [address] Nucleated RBC (Bld) [#/Vol] 10*3/uL Normal <0.01 [facility] Comment on above: Order Comment: Speci men Type: BLOOD SPECIMEN Performed By: #### 5 8410-2 ####[facility] LABORATORYCLIA [id number] [address] Platelet mean volume (Bld) [Entitic vol] 10.3 fL Normal 9.0-12.7 [facility] Comment on above: Order Comment: Speci men Type: BLOOD SPECIMEN Performed By: #### 5 8410-2 ####[facility] LABORATORYCLIA [id number] [address] Platelets (Bld) [#/Vol] 236 10*3/uL Normal 150-400 [facility] Comment on above: Order Comment: Speci men Type: BLOOD SPECIMEN Performed By: #### 5 8410-2 ####[facility] LABORATORYCLIA [id number] [address] RBC (Bld) [#/Vol] 4.27 10*6/uL Normal 4.20-6.00 [facility] Comment on above: Order Comment: Speci men Type: BLOOD SPECIMEN Performed By: #### 5 8410-2 ####[facility] LABORATORYCLIA [id number] [address] WBC (Bld) [#/Vol] 11.06 10*3/uL High 3.70-11.00 [facility] Comment on above: Order Comment: Speci men Type: BLOOD SPECIMEN Performed By: #### 5 8410-2 ####[facility] LABORATORYCLIA [id number] [address] CONSULT PROGon 06-08-2021 CONSULT PROG Normal [facility] CT BRAIN WO IVCONon 06-08-19 CT BRAIN WO IVCON Normal [facility] Magnesium SerPl-mCncon 06-08 Magnesium [Mass/Vol] 2.8 mg/dL High 1.7-2.3 [facility] Comment on above: Order Comment: Speci men Type: BLOOD SPECIMEN Performed By: #### 2 4321-2, 2777-1, 23828-9 ####[facility] LABORATORYCLIA [id number] [address] Microorganism Spec Culton Microorganism identified Cx Nom (Unsp spec) CULTURE, FUNGAL: No Fungus isolated after 28 days FUNGAL SMEAR: No fungus seen [facility] Comment on above: Performed By: #### 1 1475-1 ####[facility] LABORATORYCLIA [id number] [address] NURSING PROGon 06-08-2021 NURSING PROG Normal [facility] OPERATIVE NOon 06-08-2021 OPERATIVE NO Normal [facility] OPERATIVE NO [facility] PT panel Coag (PPP)on 2021 INR Coag (PPP) [Relative time] 1.1 {INR} Normal 0.9-1.3 [facility] Comment on above: Order Comment: Speci men Type: BLOOD SPECIMEN Result Comment: Yris min K Antagonist (VKA) Therapeutic Range: INR 2 to 3 (Target INR of 2.5)Note: For patients treated with VKA drugs, such as warfarin, the [place] [employer] 2012 Guideline recommends [...] al. Chest 2012, 141:7S-47SNishmariangel RA, et al. [facility] 2017, 70: 252-289 Performed By: #### 3 4528-0, 39453-0 ####[facility] LABORATORYCLIA [id number] [address] PT Coag (PPP) [Time] 11.9 s Normal 9.7-13.0 [facility] Comment on above: Order Comment: Speci men Type: BLOOD SPECIMEN Performed By: #### 3 4528-0, 61715-2 ####[facility] LABORATORYCLIA [id number] [address] STATES [facility] Phosphate SerPl-mCncon 06-08 Phosphate [Mass/Vol] 2.3 mg/dL Low 2.7-4.8 [facility] Comment on above: Order Comment: Speci men Type: BLOOD SPECIMEN Performed By: #### 2 4321-2, 2777-1, 02568-8 ####[facility] LABORATORYCLIA [id number] [address] [place] [facility] aPTT PPPon 06-08-2021 aPTT Coag (PPP) [Time] 24.2 s Normal 23.0-32.4 [facility] Comment on above: Order Comment: Speci men Type: BLOOD SPECIMEN Performed By: #### 3 4528-0, 99034-0 ####[facility] LABORATORYCLIA [id number] [place], [place] [address] [place] [address] [place] [facility] ALLIED HEALTHon 06-07-2021 ALLIED HEALTH Normal [facility] ALLIED HEALTH Normal [facility] ALLIED HEALTH Normal [facility] Bacteria CSF Culton 06-07-19 22 Bacteria identified Cx Nom (CSF) CULTURE, CSF: No growth 14 days GRAM STAIN: No organisms seen Rare Mononuclear cells Rare Polymorphonuclear leukocytes Gram stain performed on cytospun specimen. Normal [facility] Comment on above: Performed By: #### 6 06-4 ####[facility] LABORATORYCLIA [id number] [address] OF [facility] Basic metabolic 2000 panelon 06-07-2021 Anion gap [Moles/Vol] 9 mmol/L Normal 9-18 [facility] Comment on above: Order Comment: Speci men Type: BLOOD SPECIMEN Performed By: #### 1 9123-9, 2777-1, 14173-9 ####[facility] LABORATORYCLIA [id number] [place] [address] [place] Calcium [Mass/Vol] 8.8 mg/dL Normal 8.5-10.2 [facility] Comment on above: Order Comment: Speci men Type: BLOOD SPECIMEN Performed By: #### 1 9123-9, 2777-1, 53356-1 ####[facility] LABORATORYCLIA [id number] [place] [address] [place] Chloride [Moles/Vol] 111 mmol/L High 97-105 [facility] Comment on above: Order Comment: Speci men Type: BLOOD SPECIMEN Performed By: #### 1 9123-9, 2777-1, 86131-5 ####[facility]ORATORYCLIA [id number] [place] [address] [place] CO2 [Moles/Vol] 27 mmol/L Normal 22-30 [facility] Comment on above: Order Comment: Speci men Type: BLOOD SPECIMEN Performed By: #### 1 9123-9, 2777-1, 40637-6 ####[facility] LABORATORYCLIA [id number] [place] [address] [place] Creatinine [Mass/Vol] 0.66 mg/dL Low 0.73-1.22 [facility] Comment on above: Order Comment: Speci men Type: BLOOD SPECIMEN Performed By: #### 1 9123-9, 2777-, 53870-0 ####[facility] [id number] [place] [id number] [place] GFR/1.73 sq M.predicted MDRD (S/P/Bld) [Vol rate/Area] mL/min/{1.73_m2} Normal [facility] Comment on above: Order Comment: Speci [...] GFR. Performed By: #### 1 9123-9, 2777-, 21710-1 ####[facility] [id number] [address] [place] Glucose [Mass/Vol] 123 mg/dL High 74-99 [facility] Comment on above: Order Comment: [facility] BLOOD SPECIMEN Result Comment: The [place] Diabetes Association (ADA) provides guidance for cutoff [...] Standards of Medical Care in Diabetes 2016, [place] [employer] Association. Diabetes Care. 2016.39(Suppl 1). Performed By: #### 1 9123-9, 2777-1, 53159-8 ####[facility] LABORATORYCLIA [id number] [address] [place] [facility] Potassium [Moles/Vol] 3.6 mmol/L Low 3.7-5.1 [facility] Comment on above: Order Comment: Speci men Type: BLOOD SPECIMEN Performed By: #### 1 9123-9, 2776-, 59082-8 ####[facility] LABORATORYCLIA [id number] [address] Sodium [Moles/Vol] 147 mmol/L High 136-144 [facility] Comment on above: Order Comment: Speci men Type: BLOOD SPECIMEN Performed By: #### 1 9123-9, 27711-04, 32392-4 ####[facility] LABORATORYCLIA [id number] [address] Urea nitrogen [Mass/Vol] 30 mg/dL High 9-24 [facility] Comment on above: Order Comment: Speci men Type: BLOOD SPECIMEN Performed By: #### 1 9123-9, 2777, 51869-9 ####[facility] LABORATORYCLIA [id number] [address] CBC W Auto Differential pane l (Bld)on 06-07-2021 Basophils (Bld) [#/Vol] 10*3/uL Normal <0.11 [facility] Comment on above: Order Comment: Speci men Type: BLOOD SPECIMEN Performed By: #### 5 7021-8 ####[facility] LABORATORYCLIA [id number] [address] Basophils/100 WBC (Bld) 0.2 % Normal [facility] Comment on above: Order Comment: Speci men Type: BLOOD SPECIMEN Performed By: #### 5 7021-8 ####[facility]ORATORYCLIA [id number] [address] Differential cell count method Nom (Bld) Auto Normal [facility] Comment on above: Order Comment: Speci men Type: BLOOD SPECIMEN Performed By: #### 5 7021-8 ####[facility]ATORYCLIA [id number] [address] Eosinophils (Bld) [#/Vol] 0.06 10*3/uL Normal <0.46 [facility] Comment on above: Order Comment: Speci men Type: BLOOD SPECIMEN Performed By: #### 5 7021-8 ####[facility] LABORATORYCLIA [id number] [address] Eosinophils/100 WBC (Bld) 0.6 % Normal [facility] Comment on above: Order Comment: Speci men Type: BLOOD SPECIMEN Performed By: #### 5 7021-8 ####[facility] LABORATORYCLIA [id number] [address] Erythrocyte distribution width (RBC) [Ratio] 15.8 % High 11.5-15.0 [facility] Comment on above: Order Comment: Speci men Type: BLOOD SPECIMEN Performed By: #### 5 7021-8 ####[facility]ATORYCLIA [id number] [address] Hematocrit (Bld) [Volume fraction] 40.4 % Normal 39.0-51.0 [facility] Comment on above: Order Comment: Speci men Type: BLOOD SPECIMEN Performed By: #### 5 7021-8 ####[facility]ATORYCLIA [id number] [address] Hemoglobin (Bld) [Mass/Vol] 12.4 g/dL Low 13.0-17.0 [facility] Comment on above: Order Comment: Speci men Type: BLOOD SPECIMEN Performed By: #### 5 7021-8 ####[facility]ATORYCLIA [id number] [address] IMMATURE GRAN % 0.7 % Normal [facility] Comment on above: Order Comment: Speci men Type: BLOOD SPECIMEN Performed By: #### 5 7021-8 ####[facility] LABORATORYCLIA [id number] [address] IMMATURE GRAN ABS 0.07 k/uL Normal <0.10 [facility] Comment on above: Order Comment: Speci men Type: BLOOD SPECIMEN Performed By: #### 5 7021-8 ####[facility] LABORATORYCLIA [id number] [address] Lymphocytes (Bld) [#/Vol] 1.43 10*3/uL Normal 1.00-4.00 [facility] Comment on above: Order Comment: Speci men Type: BLOOD SPECIMEN Performed By: #### 5 7021-8 ####[facility] LABORATORYCLIA [id number] [address] Lymphocytes/100 WBC (Bld) 14.1 % Normal [facility] Comment on above: Order Comment: Speci men Type: BLOOD SPECIMEN Performed By: #### 5 7021-8 ####[facility] LABORATORYCLIA [id number] [address] MCH (RBC) [Entitic mass] 27.6 pg Normal 26.0-34.0 [facility] Comment on above: Order Comment: Speci men Type: BLOOD SPECIMEN Performed By: #### 5 7021-8 ####[facility] LABORATORYCLIA [id number] [address] MCHC (RBC) [Mass/Vol] 30.7 g/dL Normal 30.5-36.0 [facility] Comment on above: Order Comment: Speci men Type: BLOOD SPECIMEN Performed By: #### 5 7021-8 ####[facility] LABORATORYCLIA [id number] [address] MCV (RBC) [Entitic vol] 89.8 fL Normal 80.0-100.0 [facility] Comment on above: Order Comment: Speci men Type: BLOOD SPECIMEN Performed By: #### 5 7021-8 ####[facility]ORATORYCLIA [id number] [address] Monocytes (Bld) [#/Vol] 0.82 10*3/uL Normal <0.87 [facility] Comment on above: Order Comment: Speci men Type: BLOOD SPECIMEN Performed By: #### 5 7021-8 ####[facility]ORATORYCLIA [id number] [address] Monocytes/100 WBC (Bld) 8.1 % Normal [facility] Comment on above: Order Comment: Speci men Type: BLOOD SPECIMEN Performed By: #### 5 7021-8 ####[facility]ATORYCLIA [id number] [address] Neutrophils (Bld) [#/Vol] 7.74 10*3/uL High 1.45-7.50 [facility] Comment on above: Order Comment: Speci men Type: BLOOD SPECIMEN Performed By: #### 5 7021-8 ####[facility]ATORYCLIA [id number] [address] Neutrophils/100 WBC (Bld) 76.3 % Normal [facility] Comment on above: Order Comment: Speci men Type: BLOOD SPECIMEN Performed By: #### 5 7021-8 ####[facility]ORATORYCLIA [id number] [address] Nucleated RBC (Bld) [#/Vol] 10*3/uL Normal <0.01 [facility] Comment on above: Order Comment: Speci men Type: BLOOD SPECIMEN Performed By: #### 5 7021-8 ####[facility]ATORYCLIA [id number] [address] Nucleated RBC/100 WBC (Bld) [Ratio] 0.0 /100 WBC Normal 0.0 [facility] Comment on above: Order Comment: Speci men Type: BLOOD SPECIMEN Performed By: #### 5 7021-8 ####[facility] LABORATORYCLIA [id number] [address] Platelet mean volume (Bld) [Entitic vol] 10.4 fL Normal 9.0-12.7 [facility] Comment on above: Order Comment: Speci men Type: BLOOD SPECIMEN Performed By: #### 5 7021-8 ####[facility] LABORATORYCLIA [id number] [address] Platelets (Bld) [#/Vol] 236 10*3/uL Normal 150-400 [facility] Comment on above: Order Comment: Speci men Type: BLOOD SPECIMEN Performed By: #### 5 7021-8 ####[facility] LABORATORYCLIA [id number] [address] RBC (Bld) [#/Vol] 4.50 10*6/uL Normal 4.20-6.00 [facility] Comment on above: Order Comment: Speci men Type: BLOOD SPECIMEN Performed By: #### 5 7021-8 ####[facility] LABORATORYCLIA [id number] [address] WBC (Bld) [#/Vol] 10.14 10*3/uL Normal 3.70-11.00 [facility] Comment on above: Order Comment: Speci men Type: BLOOD SPECIMEN Performed By: #### 5 7021-8 ####[facility] LABORATORYCLIA [id number] [address] CBC panel Auto (Bld)on 06-07 Erythrocyte distribution width (RBC) [Ratio] 15.8 % High 11.5-15.0 [facility] Comment on above: Order Comment: Speci men Type: BLOOD SPECIMEN Performed By: #### 5 8410-2 ####[facility] LABORATORYCLIA [id number] [address] Hematocrit (Bld) [Volume fraction] 40.0 % Normal 39.0-51.0 [facility] Comment on above: Order Comment: Speci men Type: BLOOD SPECIMEN Performed By: #### 5 8410-2 ####[facility] LABORATORYCLIA [id number] [address] Hemoglobin (Bld) [Mass/Vol] 12.3 g/dL Low 13.0-17.0 [facility] Comment on above: Order Comment: Speci men Type: BLOOD SPECIMEN Performed By: #### 5 8410-2 ####[facility] LABORATORYCLIA [id number] [address] MCH (RBC) [Entitic mass] 27.3 pg Normal 26.0-34.0 [facility] Comment on above: Order Comment: Speci men Type: BLOOD SPECIMEN Performed By: #### 5 8410-2 ####[facility] LABORATORYCLIA [id number] [address] MCHC (RBC) [Mass/Vol] 30.8 g/dL Normal 30.5-36.0 [facility] Comment on above: Order Comment: Speci men Type: BLOOD SPECIMEN Performed By: #### 5 8410-2 ####[facility] LABORATORYCLIA [id number] [address] MCV (RBC) [Entitic vol] 88.7 fL Normal 80.0-100.0 [facility] Comment on above: Order Comment: Speci men Type: BLOOD SPECIMEN Performed By: #### 5 8410-2 ####[facility] LABORATORYCLIA [id number] [address] Nucleated RBC (Bld) [#/Vol] 10*3/uL Normal <0.01 [facility] Comment on above: Order Comment: Speci men Type: BLOOD SPECIMEN Performed By: #### 5 8410-2 ####[facility] LABORATORYCLIA [id number] [address] Platelet mean volume (Bld) [Entitic vol] 10.0 fL Normal 9.0-12.7 [facility] Comment on above: Order Comment: Speci men Type: BLOOD SPECIMEN Performed By: #### 5 8410-2 ####[facility] LABORATORYCLIA [id number] [address] Platelets (Bld) [#/Vol] 234 10*3/uL Normal 150-400 [facility] Comment on above: Order Comment: Speci men Type: BLOOD SPECIMEN Performed By: #### 5 8410-2 ####[facility] LABORATORYCLIA [id number] [address] OF [facility] RBC (Bld) [#/Vol] 4.51 10*6/uL Normal 4.20-6.00 [facility] Comment on above: Order Comment: Speci men Type: BLOOD SPECIMEN Performed By: #### 5 8410-2 ####[facility] LABORATORYCLIA [id number] [address] WBC (Bld) [#/Vol] 11.47 10*3/uL High 3.70-11.00 [facility] Comment on above: Order Comment: Speci men Type: BLOOD SPECIMEN Performed By: #### 5 8410-2 ####[facility] LABORATORYCLIA [id number] [address] CONSULT PROGon 06-07-2021 CONSULT PROG [facility] CONSULT PROG [facility] CSF MANUAL DIFFon 06-07-2021 DIF TTL, CSF 92 cells counted [facility] Comment on above: Order Comment: Speci men Type: CEREBROSPINAL FLUID Performed By: #### 3 4563-7, [id number], [id number] ####[facility] LABORATORYCLIA [id number] [address] EOSIN%, CSF 1 % Normal [facility] Comment on above: Order Comment: Speci men Type: CEREBROSPINAL FLUID Performed By: #### 3 4563-7, CBQ2659, [id number] ####[facility]ORATORYCLIA [id number] [place], [place] [address] [place] [address] [place] LYMPH%, CSF 21 % Low 50-90 [facility] Comment on above: Order Comment: Speci men Type: CEREBROSPINAL FLUID Performed By: #### 3 4563-7, [id number], [id number] ####[facility] LABORATORYCLIA [id number] [address] STATES [place] MACRO%, CSF 27 % High <1 [facility] Comment on above: Order Comment: Speci men Type: CEREBROSPINAL FLUID Result Comment: Tati ected result: Previously reported as 22 % on 06/07/2021 at 1:49 PM EST. Performed By: #### 3 4563-7, [id number], [id number] ####[facility] LABORATORYCLIA [id number] [place] [address] [place] MONO%, CSF 36 % Normal 10-50 [facility] Comment on above: Order Comment: Speci men Type: CEREBROSPINAL FLUID Performed By: #### 3 4563-7, [id number], [id number] ####[facility] LABORATORYCLIA [id number] [address] STATES [place] NEUT%, CSF 11 % High 0-3 [facility] Comment on above: Order Comment: Speci men Type: CEREBROSPINAL FLUID Performed By: #### 3 4563-7, [id number], [id number] ####[facility] LABORATORYCLIA [id number] [address] [place] OTHER CL%, CSF 4 % Normal [facility] Comment on above: Order Comment: Speci men Type: CEREBROSPINAL FLUID Result Comment: Path review to follow.Corrected result: Previously reported as 10 % on 06/07/2021 at 1:49 PM EST. Performed By: #### 3 4563-7, [id number], [id number] ####[facility]ATORYCLIA [id number] [place], [place] [address] [place] [address] [place] CSF PATHOLOGIST INTERP (LAB REFLEX ORDER-NO BILL)on 06-07-2021 CSF STAFF REVIEW Negative for maligna nt cells. Rare immature myeloid or ventricular lining cells. Normal [facility] Comment on above: Order Comment: Speci men Type: CEREBROSPINAL FLUID Performed By: #### 3 4563-7, [id number], [id number] ####[facility] LABORATORYCLIA [id number] [place], [place] [address] [place] [address] Pathologist name Reviewed by Eloise rebolledo MD Normal [facility] Comment on above: Order Comment: Speci men Type: CEREBROSPINAL FLUID Performed By: #### 3 4563-7, [id number], [id number] ####[facility]ORYCLIA [id number] [place], [place] [address] [place] [address] CT BRAIN WO IVCONon 06-07-19 CT BRAIN WO IVCON Normal [facility] CT BRAIN WO IVCON Normal [facility] Cell count panel (CSF)on Clarity (CSF) Clear Normal Clear [facility] Comment on above: Order Comment: Speci men Type: CEREBROSPINAL FLUID Performed By: #### 3 4563-7, [id number], ECU7067 ####[facility]ORYCLIA [id number] [place], [place] [address] [place] [address] Clarity (Unsp spec) Not Indicated Normal Clear [facility] Comment on above: Order Comment: Speci men Type: CEREBROSPINAL FLUID Performed By: #### 3 4563-7, [id number], [id number] ####[facility]ORYCLIA [id number] [place], [place] [address] [place] [address] Color (CSF) Colorless Normal Colorless [facility] Comment on above: Order Comment: Speci men Type: CEREBROSPINAL FLUID Performed By: #### 3 4563-7, [id number], FIH9754 ####[facility]ORYCLIA [id number] [address] Color (Spun CSF) Not Indicated Normal Colorless [facility] Comment on above: Order Comment: Speci men Type: CEREBROSPINAL FLUID Performed By: #### 3 4563-7, [id number], [id number] ####[facility]ORYCLIA [id number] [address] CSF TUBE NUMBER [employer] Container Normal [facility] Comment on above: Order Comment: Speci men Type: CEREBROSPINAL FLUID Performed By: #### 3 4563-7, [id number], [id number] ####[facility] LABORATORYCLIA [id number] [address] RBC Manual cnt (CSF) [#/Vol] 42 cells/uL High 0-5 [facility] Comment on above: Order Comment: Speci men Type: CEREBROSPINAL FLUID Performed By: #### 3 4563-7, [id number], MSI9925 ####[facility] LABORATORYCLIA [id number] [address] WBC Manual cnt (CSF) [#/Vol] 1 cells/uL Normal 0-5 [facility] Comment on above: Order Comment: Speci men Type: CEREBROSPINAL FLUID Performed By: #### 3 4563-7, AAF5301, [id number] ####[facility] LABORATORYCLIA [id number] [address] Glucose CSF-mCncon 2 Glucose (CSF) [Mass/Vol] 92 mg/dL High 40-70 [facility] Comment on above: Order Comment: Speci men Type: CEREBROSPINAL FLUID Result Comment: Lumb ar CSF glucose values of healthy patients are approximately 60% of the plasma values and must always be compared with a concurrently measured plasma value for adequate clinical interpretation.References: 1. Glucose HK (GLUC3) [package insert V 12.0 [place]]. [employer], [place], [place]. September 2015. 2. Michelle Moore, Loki, H. (2015). Chapter 7: Glucose and Lactate. Marianela Alcocer al.(eds.), Cerebrospinal Fluid in Clinical Neurology. [place]: [employer]. Performed By: #### 2 880-3, 2342-4 ####[facility] LABORATORYCLIA [id number] [address] Lactate (Bld) [Moles/Vol]on 06-07-2021 Lactate [Moles/Vol] 0.9 mmol/L Normal 0.5-2.2 [facility] Comment on above: Order Comment: Speci men Type: BLOOD SPECIMEN Performed By: #### 3 2693-4 ####[facility] LABORATORYCLIA [id number] [address] STATES [place] Lipase SerPl-cCncon 06-07-19 22 Lipase [Catalytic activity/Vol] 35 U/L Normal 16-61 [facility] Comment on above: Order Comment: Speci men Type: BLOOD SPECIMEN Performed By: #### 3 040-3, PROCAL ####[facility] LABORATORYCLIA [id number] [address] [facility] Magnesium SerPl-mCncon 06-07 Magnesium [Mass/Vol] 2.7 mg/dL High 1.7-2.3 [facility] Comment on above: Order Comment: Speci men Type: BLOOD SPECIMEN Performed By: #### 1 9123-9, 2777-1, 64842-5 ####[facility] LABORATORYCLIA [id number] [address] PROCALCITONIN (LAB)on 2021 Procalcitonin [Mass/Vol] 0.13 ng/mL High <0.09 [facility] Comment on above: Order Comment: Speci men Type: BLOOD SPECIMEN Result Comment: For a guided interpretation of test results, please visit the Change in Procalcitonin Calculator, [email or web address]. Performed By: #### 3 040-3, PROCAL ####[facility] LABORATORYCLIA [id number] [address] STATES [place] Phosphate SerPl-mCncon 06-07 Phosphate [Mass/Vol] 1.9 mg/dL Low 2.7-4.8 [facility] Comment on above: Order Comment: Speci men Type: BLOOD SPECIMEN Performed By: #### 1 9123-9, 2777-1, 17829-4 ####[facility] LABORATORYCLIA [id number] [address] Prot CSF-mCncon 06-07-2021 Protein (CSF) [Mass/Vol] 33 mg/dL Normal 15-45 [facility] Comment on above: Order Comment: Speci men Type: CEREBROSPINAL FLUID Performed By: #### 2 880-3, 2342-4 ####[facility] LABORATORYCLIA [id number] [address] SARS-CoV-2 RNA Resp Ql MEGAN+p robeon 06-07-2021 SARS-CoV-2 (COVID-19) RNA MEGAN+probe Ql (Resp) COVID 19 RESULT: SARS-CoV-2 (Agent of COVID-19) Not Detected by PCR. This test has been authorized by FDA under an Emergency Use Authorization (EUA). [facility] Comment on above: Performed By: #### 9 4500-6 ####[facility] LABORATORYCLIA [id number] [address] TYPE AND SCREENon 06-07-2021 ABO O [facility] Comment on above: Order Comment: Speci men Type: BLOOD SPECIMEN Performed By: #### T SCR ####[facility] BLOOD BANKCLIA [id number] [address] HISTORICAL AB SCR STATUS Negative [facility] Comment on above: Order Comment: Speci men Type: BLOOD SPECIMEN Performed By: #### T SCR ####[facility] BLOOD BANKCLIA [id number] [address] Rh Nom (Bld) Positive [facility] Comment on above: Order Comment: Speci men Type: BLOOD SPECIMEN Performed By: #### T SCR ####[facility] BLOOD BANKCLIA [id number] [address] TYPE AND SCREEN EXPIRATION 06/10/2021 23:59 [facility] Comment on above: Order Comment: Speci men Type: BLOOD SPECIMEN Performed By: #### T SCR ####[facility] BLOOD BANKCLIA [id number] [place] [address] [place] Vancomycin random [Mass/Vol] on 06-07-2021 Vancomycin [Mass/Vol] 16.5 ug/mL Normal 10.0-20.0 [facility] Comment on above: Order Comment: Speci men Type: BLOOD SPECIMEN Result Comment: Refe rence ranges and high/low indicator flags are provided as general guidelines only. The treating physician must determine appropriate target levels/dosing based on the specific clinical situation. Performed By: #### 4 091-5 ####[facility] LABORATORYCLIA [id number] [address] [place] XR CHEST 1V FRONTAL PORTon 0 06-07-2021 XR CHEST 1V FRONTAL PORT Normal [facility] Basic metabolic 2000 panelon 06-06-2021 Anion gap [Moles/Vol] 11 mmol/L Normal 9-18 [facility] Comment on above: Order Comment: Speci men Type: BLOOD SPECIMEN Performed By: #### 2 4321-2, , 2776-05 ####[facility] LABORATORYCLIA [id number] [place] [address] [place] Calcium [Mass/Vol] 8.6 mg/dL Normal 8.5-10.2 [facility] Comment on above: Order Comment: Speci men Type: BLOOD SPECIMEN Performed By: #### 2 4321-2, , 2776-05 ####[facility] LABORATORYCLIA [id number] [place] [address] [place] Chloride [Moles/Vol] 108 mmol/L High 97-105 [facility] Comment on above: Order Comment: Speci men Type: BLOOD SPECIMEN Performed By: #### 2 4321-2, , 2776-05 ####[facility] LABORATORYCLIA [id number] [place] [address] [place] CO2 [Moles/Vol] 25 mmol/L Normal 22-30 [facility] Comment on above: Order Comment: Speci men Type: BLOOD SPECIMEN Performed By: #### 2 4321-2, , 2776-05 ####[facility] LABORATORYCLIA [id number] [place] [address] [place] Creatinine [Mass/Vol] 0.76 mg/dL Normal 0.73-1.22 [facility] Comment on above: Order Comment: Speci men Type: BLOOD SPECIMEN Performed By: #### 2 4321-2, , 2776-05 ####[facility] LABORATORYCLIA [id number] [place] [id number] [facility] [place] GFR/1.73 sq M.predicted MDRD (S/P/Bld) [Vol rate/Area] mL/min/{1.73_m2} Normal [facility] Comment on above: Order Comment: Speci [...] Performed By: #### 2 4321-2, , 2776-05 ####[facility] [id number] [place] [id number] [place] Glucose [Mass/Vol] 116 mg/dL High 74-99 [facility] Comment on above: Order [facility] B[facility]OD SPECIM[facility] Result Comment: The [place] [employer] (ADA) provides guidance for cutoff [...] Standards of Medical Care in Diabetes 2016, [place] [employer]. Diabetes Care. 2016.39(Suppl 1). Performed By: #### 2 4321-2, , 2776-05 ####[facility] LABORATORYCLIA [id number] [place], [place] [id number] [place] [address] [place] [facility] Potassium [Moles/Vol] 3.5 mmol/L Low 3.7-5.1 [facility] Comment on above: Order Comment: Speci men Type: BLOOD SPECIMEN Performed By: #### 2 4321-2, , 2776-05 ####[facility] LABORATORYCLIA [id number] [address] Sodium [Moles/Vol] 144 mmol/L Normal 136-144 [facility] Comment on above: Order Comment: Speci men Type: BLOOD SPECIMEN Performed By: #### 2 4321-2, , 2776-05 ####[facility] LABORATORYCLIA [id number] [address] STATES [facility] Urea nitrogen [Mass/Vol] 31 mg/dL High 9-24 [facility] Comment on above: Order Comment: Speci men Type: BLOOD SPECIMEN Performed By: #### 2 4321-2, , 2776-05 ####[facility] LABORATORYCLIA [id number] [address] CASE MANAGEMon 06-06-2021 CASE MANAGEM Normal [facility] CBC panel Auto (Bld)on 06-06 Erythrocyte distribution width (RBC) [Ratio] 15.8 % High 11.5-15.0 [facility] Comment on above: Order Comment: Speci men Type: BLOOD SPECIMEN Performed By: #### 5 8410-2 ####[facility] LABORATORYCLIA [id number] [address] Hematocrit (Bld) [Volume fraction] 39.5 % Normal 39.0-51.0 [facility] Comment on above: Order Comment: Speci men Type: BLOOD SPECIMEN Performed By: #### 5 8410-2 ####[facility] LABORATORYCLIA [id number] [address] Hemoglobin (Bld) [Mass/Vol] 12.2 g/dL Low 13.0-17.0 [facility] Comment on above: Order Comment: Speci men Type: BLOOD SPECIMEN Performed By: #### 5 8410-2 ####[facility] LABORATORYCLIA [id number] [address] MCH (RBC) [Entitic mass] 27.8 pg Normal 26.0-34.0 [facility] Comment on above: Order Comment: Speci men Type: BLOOD SPECIMEN Performed By: #### 5 8410-2 ####[facility] LABORATORYCLIA [id number] [address] MCHC (RBC) [Mass/Vol] 30.9 g/dL Normal 30.5-36.0 [facility] Comment on above: Order Comment: Speci men Type: BLOOD SPECIMEN Performed By: #### 5 8410-2 ####[facility] LABORATORYCLIA [id number] [address] MCV (RBC) [Entitic vol] 90.0 fL Normal 80.0-100.0 [facility] Comment on above: Order Comment: Speci men Type: BLOOD SPECIMEN Performed By: #### 5 8410-2 ####[facility] LABORATORYCLIA [id number] [address] Nucleated RBC (Bld) [#/Vol] 10*3/uL Normal <0.01 [facility] Comment on above: Order Comment: Speci men Type: BLOOD SPECIMEN Performed By: #### 5 8410-2 ####[facility] LABORATORYCLIA [id number] [address] Platelet mean volume (Bld) [Entitic vol] 10.4 fL Normal 9.0-12.7 [facility] Comment on above: Order Comment: Speci men Type: BLOOD SPECIMEN Performed By: #### 5 8410-2 ####[facility] LABORATORYCLIA [id number] [address] Platelets (Bld) [#/Vol] 236 10*3/uL Normal 150-400 [facility] Comment on above: Order Comment: Speci men Type: BLOOD SPECIMEN Performed By: #### 5 8410-2 ####[facility] LABORATORYCLIA [id number] [address] RBC (Bld) [#/Vol] 4.39 10*6/uL Normal 4.20-6.00 [facility] Comment on above: Order Comment: Speci men Type: BLOOD SPECIMEN Performed By: #### 5 8410-2 ####[facility] LABORATORYCLIA [id number] [address] WBC (Bld) [#/Vol] 9.74 10*3/uL Normal 3.70-11.00 [facility] Comment on above: Order Comment: Speci men Type: BLOOD SPECIMEN Performed By: #### 5 8410-2 ####[facility] LABORATORYCLIA [id number] [address] CONSULT PROGon 06-06-2021 CONSULT PROG Normal [facility] CONSULT PROG Normal [facility] Magnesium SerPl-mCncon 06-06 Magnesium [Mass/Vol] 2.5 mg/dL High 1.7-2.3 [facility] Comment on above: Order Comment: Speci men Type: BLOOD SPECIMEN Performed By: #### 2 4321-2, 14361-1, 2777-1 ####[facility] LABORATORYCLIA [id number] [address] PT panel Coag (PPP)on 2021 INR Coag (PPP) [Relative time] 1.0 {INR} Normal 0.9-1.3 [facility] Comment on above: Order Comment: Speci men Type: BLOOD SPECIMEN Result Comment: Yris min K Antagonist (VKA) Therapeutic Range: INR 2 to 3 (Target INR of 2.5)Note: For patients treated with VKA drugs, such as warfarin, the [place] [employer] 2012 Guideline recommends [...] al. Chest 2012, 141:7S-47SAlba RA, et al. [facility] 2017, 70: 252-289 Performed By: #### 3 4528-0, 82066-1 ####[facility] LABORATORYCLIA [id number] [address] STATES [place] [facility] PT Coag (PPP) [Time] 11.4 s Normal 9.7-13.0 [facility] Comment on above: Order Comment: Speci men Type: BLOOD SPECIMEN Performed By: #### 3 4528-0, 26683-3 ####[facility] LABORATORYCLIA [id number] [address] [place] Phosphate SerPl-mCncon 06-06 Phosphate [Mass/Vol] 2.3 mg/dL Low 2.7-4.8 [facility] Comment on above: Order Comment: Speci men Type: BLOOD SPECIMEN Performed By: #### 2 4321-2, 74136-3, 2777-1 ####[facility] LABORATORYCLIA [id number] [address] [place] THROMBOGRAPH HEPARINASE PANE [place] 06-06-2021 Clot angle after addition of heparinase TEG (Bld) [Angle] 70.2 degrees Normal 47.0-74.0 [facility] Comment on above: Order Comment: Speci men Type: BLOOD SPECIMEN Performed By: #### T EGHPP ####[facility] LABORATORYCLIA [id number] [address] Clot Lysis 30 Min post maximum clot amplitude TEG (Bld) [Length fraction] 0.0 % Normal 0.0-8.0 [facility] Comment on above: Order Comment: Speci men Type: BLOOD SPECIMEN Performed By: #### T EGHPP ####[facility] LABORATORYCLIA [id number] [address] Clotting time after addition of heparinase TEG (Bld) 5.7 minutes Normal 4.0-10.0 [facility] Comment on above: Order Comment: Speci men Type: BLOOD SPECIMEN Performed By: #### T EGHPP ####[facility] LABORATORYCLIA [id number] [address] Coagulation index TEG Qn (Bld) 1.2 Normal -4.6-3.2 [facility] Comment on above: Order Comment: Speci men Type: BLOOD SPECIMEN Result Comment: The Coagulation Index, a secondary parameter, is labeled by the pouncer as for "research use only" and is used per the pouncer's instructions. Its performance characteristics were determined by [facility]'s [facility] [place] in a manner consistent with CLIA requirements. This test has not been cleared by the U.S. Food and Drug Administration. Performed By: #### T EGHPP ####[facility] LABORATORYCLIA [id number] [place] [phone] [facility] Maximum clot firmness after addition of heparinase TEG (Bld) [Length] 64.0 mm Normal 51.0-75.0 [facility] Comment on above: Order Comment: Speci men Type: BLOOD SPECIMEN Performed By: #### T EGHPP ####[facility] LABORATORYCLIA [id number] [place] [phone] [facility] Vancomycin random [Mass/Vol] on 06-06-2021 Vancomycin [Mass/Vol] 17.4 ug/mL Normal 10.0-20.0 [facility] Comment on above: Order Comment: Speci men Type: BLOOD SPECIMEN Result Comment: Refe rence ranges and high/low indicator flags are provided as general guidelines only. The treating physician must determine appropriate target levels/dosing based on the specific clinical situation. Performed By: #### 4 091-5 ####[facility] LABORATORYCLIA [id number] [address] Vancomycin [Mass/Vol] 13.5 ug/mL Normal 10.0-20.0 [facility] Comment on above: Order Comment: Speci men Type: BLOOD SPECIMEN Result Comment: Refe rence ranges and high/low indicator flags are provided as general guidelines only. The treating physician must determine appropriate target levels/dosing based on the specific clinical situation. Performed By: #### 4 091-5 ####[facility] LABORATORYCLIA [id number] [address] aPTT PPPon 06-06-2021 aPTT Coag (PPP) [Time] 27.8 s Normal 23.0-32.4 [facility] Comment on above: Order Comment: Speci men Type: BLOOD SPECIMEN Performed By: #### 3 4528-0, 29176-1 ####[facility] LABORATORYCLIA [id number] [address] Basic metabolic 2000 panelon 06-05-2021 Anion gap [Moles/Vol] 11 mmol/L Normal 9-18 [facility] Comment on above: Order Comment: Speci men Type: BLOOD SPECIMEN Performed By: #### 1 9123-9, 65941-1, 2777-1 ####[facility] LABORATORYCLIA [id number] [address] Calcium [Mass/Vol] 8.6 mg/dL Normal 8.5-10.2 [facility] Comment on above: Order Comment: Speci men Type: BLOOD SPECIMEN Performed By: #### 1 9123-9, 68637-4, 2777-1 ####[facility] LABORATORYCLIA [id number] [address] [place] Chloride [Moles/Vol] 108 mmol/L High 97-105 [facility] Comment on above: Order Comment: Speci men Type: BLOOD SPECIMEN Performed By: #### 1 9123-9, 08019-0, 2776-05 ####[facility] LABORATORYCLIA [id number] [address] STATES [facility] CO2 [Moles/Vol] 25 mmol/L Normal 22-30 [facility] Comment on above: Order Comment: Speci men Type: BLOOD SPECIMEN Performed By: #### 1 9, , 2776-05 ####[facility] LABORATORYCLIA [id number] [address] [place] [facility] Creatinine [Mass/Vol] 0.77 mg/dL Normal 0.73-1.22 [facility] Comment on above: Order Comment: Speci men Type: BLOOD SPECIMEN Performed By: #### 1 9, , 2776-05 ####[facility] LABORATORYCLIA [id number] [address] [place] GFR/1.73 sq M.predicted MDRD (S/P/Bld) [Vol rate/Area] mL/min/{1.73_m2} Normal [facility] Comment on above: Order Comment: Speci [...] actual GFR. Performed By: #### 1 9123-9, 52978-1, 2776-05 ####[facility] LABORATORYCLIA [id number] [place] [address] [place] Glucose [Mass/Vol] 96 mg/dL Normal 74-99 [facility] Comment on above: Order Comment: Speci men Type: BLOOD SPECIMEN Result Comment: The [place] [employer] (ADA) provides guidance for cutoff [...] Standards of Medical Care in Diabetes 2016, [place] [employer]. Diabetes Care. 2016.39(Suppl 1). Performed By: #### 1 9123-9, 79530-9, 2776-05 ####[facility] LABORATORYCLIA [id number] [address] [place] Potassium [Moles/Vol] 3.9 mmol/L Normal 3.7-5.1 [facility] Comment on above: Order Comment: Speci men Type: BLOOD SPECIMEN Performed By: #### 1 9123-9, 43568-0, 2776-05 ####[facility] LABORATORYCLIA [id number] [address] [place] Sodium [Moles/Vol] 144 mmol/L Normal 136-144 [facility] Comment on above: Order Comment: Speci men Type: BLOOD SPECIMEN Performed By: #### 1 9123-9, 74378-3, 2776-05 ####[facility] LABORATORYCLIA [id number] [place] [address] [place] Urea nitrogen [Mass/Vol] 26 mg/dL High 9-24 [facility] Comment on above: Order Comment: Speci men Type: BLOOD SPECIMEN Performed By: #### 1 9123-9, 48740-7, 2777-1 ####[facility] LABORATORYCLIA [id number] [address] CBC panel Auto (Bld)on 06-05 Erythrocyte distribution width (RBC) [Ratio] 15.9 % High 11.5-15.0 [facility] Comment on above: Order Comment: Speci men Type: BLOOD SPECIMEN Performed By: #### 5 8410-2 ####[facility] LABORATORYCLIA [id number] [address] Hematocrit (Bld) [Volume fraction] 39.6 % Normal 39.0-51.0 [facility] Comment on above: Order Comment: Speci men Type: BLOOD SPECIMEN Performed By: #### 5 8410-2 ####[facility] LABORATORYCLIA [id number] [address] Hemoglobin (Bld) [Mass/Vol] 12.3 g/dL Low 13.0-17.0 [facility] Comment on above: Order Comment: Speci men Type: BLOOD SPECIMEN Performed By: #### 5 8410-2 ####[facility] LABORATORYCLIA [id number] [address] MCH (RBC) [Entitic mass] 28.1 pg Normal 26.0-34.0 [facility] Comment on above: Order Comment: Speci men Type: BLOOD SPECIMEN Performed By: #### 5 8410-2 ####[facility] LABORATORYCLIA [id number] [address] MCHC (RBC) [Mass/Vol] 31.1 g/dL Normal 30.5-36.0 [facility] Comment on above: Order Comment: Speci men Type: BLOOD SPECIMEN Performed By: #### 5 8410-2 ####[facility] LABORATORYCLIA [id number] [address] MCV (RBC) [Entitic vol] 90.4 fL Normal 80.0-100.0 [facility] Comment on above: Order Comment: Speci men Type: BLOOD SPECIMEN Performed By: #### 5 8410-2 ####[facility] LABORATORYCLIA [id number] [address] Nucleated RBC (Bld) [#/Vol] 10*3/uL Normal <0.01 [facility] Comment on above: Order Comment: Speci men Type: BLOOD SPECIMEN Performed By: #### 5 8410-2 ####[facility] LABORATORYCLIA [id number] [address] Platelet mean volume (Bld) [Entitic vol] 10.5 fL Normal 9.0-12.7 [facility] Comment on above: Order Comment: Speci men Type: BLOOD SPECIMEN Performed By: #### 5 8410-2 ####[facility] LABORATORYCLIA [id number] [address] Platelets (Bld) [#/Vol] 224 10*3/uL Normal 150-400 [facility] Comment on above: Order Comment: Speci men Type: BLOOD SPECIMEN Performed By: #### 5 8410-2 ####[facility] LABORATORYCLIA [id number] [address] RBC (Bld) [#/Vol] 4.38 10*6/uL Normal 4.20-6.00 [facility] Comment on above: Order Comment: Speci men Type: BLOOD SPECIMEN Performed By: #### 5 8410-2 ####[facility] LABORATORYCLIA [id number] [address] WBC (Bld) [#/Vol] 9.66 10*3/uL Normal 3.70-11.00 [facility] Comment on above: Order Comment: Speci men Type: BLOOD SPECIMEN Performed By: #### 5 8410-2 ####[facility] LABORATORYCLIA [id number] [address] CONSULT PROGon 06-05-2021 CONSULT PROG Normal [facility] Gas and Carbon monoxide pane l (BldV)on 06-05-2021 Base excess Calc (BldV) [Moles/Vol] 1.8 mmol/L Normal 0-2 [facility] Comment on above: Order Comment: Speci men Type: VENOUS BLOOD SPECIMEN Performed By: #### 2 4344-4 ####[facility] LABORATORYCLIA [id number] [address] Body temperature 100.4 [degF] Normal [facility] Comment on above: Order Comment: Speci men Type: VENOUS BLOOD SPECIMEN Performed By: #### 2 4344-4 ####[facility] LABORATORYCLIA [id number] [address] OF [facility] CALCIUM IONIZED, PH CORRECTED 1.21 mmol/L Normal 1.08-1.30 [facility] Comment on above: Order Comment: Speci men Type: VENOUS BLOOD SPECIMEN Performed By: #### 2 4344-4 ####[facility] LABORATORYCLIA [id number] [address] OF [facility] Calcium.ionized (BldV) [Mass/Vol] 1.19 mmol/L Normal 1.08-1.30 [facility] Comment on above: Order Comment: Speci men Type: VENOUS BLOOD SPECIMEN Performed By: #### 2 4344-4 ####[facility] LABORATORYCLIA [id number] [address] OF [facility] Carboxyhemoglobin (BldV) [Mass fraction] 1.0 % Normal 0.0-2.0 [facility] Comment on above: Order Comment: Speci men Type: VENOUS BLOOD SPECIMEN Result Comment: Carb oxyhemoglobin Reference Range for Smokers: 2.0-8.0% Performed By: #### 2 4344-4 ####[facility] LABORATORYCLIA [id number] [address] CO2 (BldV) [Partial pressure] 41 mm[Hg] Low 42-55 [facility] Comment on above: Order Comment: Speci men Type: VENOUS BLOOD SPECIMEN Performed By: #### 2 4344-4 ####[facility] LABORATORYCLIA [id number] [address] CO2 [Moles/Vol] 23.4 mmol/L Low 25-29 [facility] Comment on above: Order Comment: Speci men Type: VENOUS BLOOD SPECIMEN Performed By: #### 2 4344-4 ####[facility] LABORATORYCLIA [id number] [address] CO2 adjusted to patient's actual temperature (BldV) [Partial pressure] 43 mmHg Normal 42-55 [facility] Comment on above: Order Comment: Speci men Type: VENOUS BLOOD SPECIMEN Performed By: #### 2 4344-4 ####[facility] LABORATORYCLIA [id number] [address] Glucose [Mass/Vol] 101 mg/dL Normal 60-105 [facility] Comment on above: Order Comment: Speci men Type: VENOUS BLOOD SPECIMEN Performed By: #### 2 4344-4 ####[facility] LABORATORYCLIA [id number] [address] HCO3 (Bld) [Moles/Vol] 26.0 mmol/L Normal 24-28 [facility] Comment on above: Order Comment: Speci men Type: VENOUS BLOOD SPECIMEN Performed By: #### 2 4344-4 ####[facility] LABORATORYCLIA [id number] [address] Hematocrit (Bld) [Volume fraction] 38.4 % Low 39.0-51.0 [facility] Comment on above: Order Comment: Speci men Type: VENOUS BLOOD SPECIMEN Performed By: #### 2 4344-4 ####[facility]ATORYCLIA [id number] [address] Hemoglobin (Bld) [Mass/Vol] 12.5 g/dL Low 13.0-17.0 [facility] Comment on above: Order Comment: Speci men Type: VENOUS BLOOD SPECIMEN Performed By: #### 2 4344-4 ####[facility]ORATORYCLIA [id number] [place] [address] [place] Methemoglobin (Bld) [Mass fraction] % Normal 0.0-1.5 [facility] Comment on above: Order Comment: Speci men Type: VENOUS BLOOD SPECIMEN Performed By: #### 2 4344-4 ####[facility]ORATORYCLIA [id number] [place] [address] [facility] [place] O2 THERAPY Ventilator Normal [facility] Comment on above: Order Comment: Speci men Type: VENOUS BLOOD SPECIMEN Performed By: #### 2 4344-4 ####[facility]ORATORYCLIA [id number] [place] [address] [facility] Oxygen (BldV) [Partial pressure] 44 mm[Hg] Normal 35-45 [facility] Comment on above: Order Comment: Speci men Type: VENOUS BLOOD SPECIMEN Performed By: #### 2 4344-4 ####[facility]ATORYCLIA [id number] [place], [place] [id number] [place] [address] Oxygen adjusted to patient's actual temperature (BldV) [Partial pressure] 46.8 mmHg High 35-45 [facility] Comment on above: Order Comment: Speci men Type: VENOUS BLOOD SPECIMEN Performed By: #### 2 4344-4 ####[facility]ATORYCLIA [id number] [place] [address] [facility] Oxygen saturation in Blood 76.5 % Normal 60-85 [facility] Comment on above: Order Comment: Speci men Type: VENOUS BLOOD SPECIMEN Performed By: #### 2 4344-4 ####[facility]ORATORYCLIA [id number] [place] [address] [place] Oxyhemoglobin (BldV) [Mass fraction] 75 % Normal 60-85 [facility] Comment on above: Order Comment: Speci men Type: VENOUS BLOOD SPECIMEN Performed By: #### 2 4344-4 ####[facility]ATORYCLIA [id number] [place] [address] [place] pH (BldV) 7.42 [pH] Normal 7.32-7.42 [facility] Comment on above: Order Comment: Speci men Type: VENOUS BLOOD SPECIMEN Performed By: #### 2 4344-4 ####[facility]ORYCLIA [id number] [address] pH adjusted to patient's actual temperature (BldV) 7.40 Normal 7.32-7.42 [facility] Comment on above: Order Comment: Speci men Type: VENOUS BLOOD SPECIMEN Performed By: #### 2 4344-4 ####[facility]ORYCLIA [id number] [address] Potassium [Moles/Vol] 3.7 mmol/L Normal 3.5-5.0 [facility] Comment on above: Order Comment: Speci men Type: VENOUS BLOOD SPECIMEN Performed By: #### 2 4344-4 ####[facility] LABORATORYCLIA [id number] [address] Sodium [Moles/Vol] 141 mmol/L Normal 136-144 [facility] Comment on above: Order Comment: Speci men Type: VENOUS BLOOD SPECIMEN Performed By: #### 2 4344-4 ####[facility] LABORATORYCLIA [id number] [address] Magnesium SerPl-mCncon 06-05 Magnesium [Mass/Vol] 2.3 mg/dL Normal 1.7-2.3 [facility] Comment on above: Order Comment: Speci men Type: BLOOD SPECIMEN Performed By: #### 1 9123-9, 01476-7, 2776-05 ####[facility]ORATORYCLIA [id number] [address] Phosphate SerPl-mCncon 06-05 Phosphate [Mass/Vol] 2.9 mg/dL Normal 2.7-4.8 [facility] Comment on above: Order Comment: Speci men Type: BLOOD SPECIMEN Performed By: #### 1 9123-9, 93355-4, 2776- ####[facility]ORATORYCLIA [id number] [address] Vancomycin random [Mass/Vol] on 06-05-2021 Vancomycin [Mass/Vol] 23.2 ug/mL High 10.0-20.0 [facility] Comment on above: Order Comment: Speci men Type: BLOOD SPECIMEN Result Comment: Refe rence ranges and high/low indicator flags are provided as general guidelines only. The treating physician must determine appropriate target levels/dosing based on the specific clinical situation. Performed By: #### 4 091-5 ####[facility] LABORATORYCLIA [id number] [place] [address] [place] (1,3)-U-S-DXKNJFiu 2 (1,3) B-D GLUCAN <31 Normal <60 [facility] Comment on above: Order Comment: Speci men Type: BLOOD SPECIMEN Performed By: #### B DGLUC ####[facility] LABCLIA [id number] [employer] Shel[employer] [address] [place] (1,3) B-D GLUCAN, QUAL Negative Normal NEGAT [facility] [facility] Comment on above: Order Comment: Speci men Type: BLOOD SPECIMEN Result Comment: Cert ain fungi, such as the genus Cryptococcus which produces very low levels of (1,3)-hfsh-G-ihatol, may not result in serum (1,3)-fhni-G-vlgqre sufficiently elevated so as to be detected by the assay. Infections with fungi of the order Mucorales such as Absidia, Mucor and Rhizopus which are not known to produce (1,3)-oxit-R-dydrmz, are also observed to yield low serum (1,3)-nsrv-E-jljxuc titers.In addition, the yeast phase of Blastomyces dermatitidis produces little (1,3)-fpmo-U-ouqamt and may not be detected by the assay. Performed By: #### B DGLUC ####[facility] LABCLIA [id number] [employer] [address] [address] [place] ALLIED HEALTHon 06-04-2021 ALLIED HEALTH Normal [facility] ALLIED HEALTH Normal [facility] ARTERIAL BLOOD GASESon 06-04 Base excess Calc (Bld) [Moles/Vol] 3 mmol/L High 0-2 [facility] Comment on above: Order Comment: Speci men Type: ARTERIAL BLOOD SPECIMEN Performed By: #### A LLBG ####[facility] LABORATORYCLIA [id number] [address] Body temperature 98.06 [degF] Normal [facility] Comment on above: Order Comment: Speci men Type: ARTERIAL BLOOD SPECIMEN Performed By: #### A LLBG ####[facility] LABORATORYCLIA [id number] [address] CALCIUM IONIZED, PH CORRECTED 1.19 mmol/L Normal 1.08-1.30 [facility] Comment on above: Order Comment: Speci men Type: ARTERIAL BLOOD SPECIMEN Performed By: #### A LLBG ####[facility] LABORATORYCLIA [id number] [address] Calcium.ionized (BldV) [Mass/Vol] 1.14 mmol/L Normal 1.08-1.30 [facility] Comment on above: Order Comment: Speci men Type: ARTERIAL BLOOD SPECIMEN Performed By: #### A LLBG ####[facility] LABORATORYCLIA [id number] [address] Carboxyhemoglobin (BldA) [Mass fraction] 1.2 % Normal 0.0-2.0 [facility] Comment on above: Order Comment: Speci men Type: ARTERIAL BLOOD SPECIMEN Result Comment: Carb oxyhemoglobin Reference Range for Smokers: 2.0-8.0% Performed By: #### A LLBG ####[facility] LABORATORYCLIA [id number] [address] CO2 (Bld) [Partial pressure] 35 mm Hg Low 36-46 [facility] Comment on above: Order Comment: Speci men Type: ARTERIAL BLOOD SPECIMEN Performed By: #### A LLBG ####[facility] LABORATORYCLIA [id number] [address] CO2 [Moles/Vol] 23.2 mmol/L Normal 22-28 [facility] Comment on above: Order Comment: Speci men Type: ARTERIAL BLOOD SPECIMEN Performed By: #### A LLBG ####[facility]ORYCLIA [id number] [address] CO2 adjusted to patient's actual temperature (Bld) [Partial pressure] 34 mmHg Low 36-46 [facility] Comment on above: Order Comment: Speci men Type: ARTERIAL BLOOD SPECIMEN Performed By: #### A LLBG ####[facility]ORYCLIA [id number] [address] Glucose [Mass/Vol] 115 mg/dL High 60-105 [facility] Comment on above: Order Comment: Speci men Type: ARTERIAL BLOOD SPECIMEN Performed By: #### A LLBG ####[facility]ATORYCLIA [id number] [address] [facility] HCO3 (Bld) [Moles/Vol] 26 mmol/L Normal 22-26 [facility] Comment on above: Order Comment: Speci men Type: ARTERIAL BLOOD SPECIMEN Performed By: #### A LLBG ####[facility] LABORATORYCLIA [id number] [address] Hematocrit (Bld) [Volume fraction] 35.3 % Low 39.0-51.0 [facility] Comment on above: Order Comment: Speci men Type: ARTERIAL BLOOD SPECIMEN Performed By: #### A LLBG ####[facility]ORYCLIA [id number] [address] [facility] Hemoglobin (Bld) [Mass/Vol] 11.5 g/dL Low 13.0-17.0 [facility] Comment on above: Order Comment: Speci men Type: ARTERIAL BLOOD SPECIMEN Performed By: #### A LLBG ####[facility]ORYCLIA [id number] [address] Methemoglobin (Bld) [Mass fraction] % Normal 0.0-1.5 [facility] Comment on above: Order Comment: Speci men Type: ARTERIAL BLOOD SPECIMEN Performed By: #### A LLBG ####[facility]ORATORYCLIA [id number] [address] O2 THERAPY Ventilator Normal [facility] Comment on above: Order Comment: Speci men Type: ARTERIAL BLOOD SPECIMEN Performed By: #### A LLBG ####[facility]ATORYCLIA [id number] [address] Oxygen (Bld) [Partial pressure] 66 mm Hg Low 85-95 [facility] Comment on above: Order Comment: Speci men Type: ARTERIAL BLOOD SPECIMEN Performed By: #### A LLBG ####[facility]ORYCLIA [id number] [address] Oxygen adjusted to patient's actual temperature (Bld) [Partial pressure] 64.3 mmHg Low 85-95 [facility] Comment on above: Order Comment: Speci men Type: ARTERIAL BLOOD SPECIMEN Performed By: #### A LLBG ####[facility]ORYCLIA [id number] [address] OXYGEN SATURATION, ARTERIAL 95 % Normal 95-98 [facility] Comment on above: Order Comment: Speci men Type: ARTERIAL BLOOD SPECIMEN Performed By: #### A LLBG ####[facility]ATORYCLIA [id number] [address] Oxyhemoglobin (BldA) [Mass fraction] 93 % Low 95-98 [facility] Comment on above: Order Comment: Speci men Type: ARTERIAL BLOOD SPECIMEN Performed By: #### A LLBG ####[facility]ATORYCLIA [id number] [address] pH (Bld) 7.49 [pH] High 7.35-7.45 [facility] Comment on above: Order Comment: Speci men Type: ARTERIAL BLOOD SPECIMEN Performed By: #### A LLBG ####[facility]ORYCLIA [id number] [address] pH adjusted to patient's actual temperature (Bld) 7.49 High 7.35-7.45 [facility] Comment on above: Order Comment: Speci men Type: ARTERIAL BLOOD SPECIMEN Performed By: #### A LLBG ####[facility] LABORATORYCLIA [id number] [address] Potassium [Moles/Vol] 2.8 mmol/L Low 3.5-5.0 [facility] Comment on above: Order Comment: Speci men Type: ARTERIAL BLOOD SPECIMEN Performed By: #### A LLBG ####[facility] LABORATORYCLIA [id number] [address] Bas Metab 2000 Pnl SerPlon 0 06-04-2021 Sodium [Moles/Vol] 143 mmol/L Normal 136-144 [facility] Comment on above: Order Comment: Speci men Type: BLOOD SPECIMEN Performed By: #### 2 777-1, , ####[facility] LABORATORYCLIA [id number] [address] Order Comment: Speci men Type: ARTERIAL BLOOD SPECIMEN Performed By: #### A LLBG ####[facility] LABORATORYCLIA [id number] [address] Basic metabolic 2000 panelon 06-04-2021 Anion gap [Moles/Vol] 11 mmol/L Normal 9-18 [facility] Comment on above: Order Comment: Speci men Type: BLOOD SPECIMEN Performed By: #### 2 777-1, , 92963-2 ####[facility] LABORATORYCLIA [id number] [address] Calcium [Mass/Vol] 8.5 mg/dL Normal 8.5-10.2 [facility] Comment on above: Order Comment: Speci men Type: BLOOD SPECIMEN Performed By: #### 2 777-1, , 03317-7 ####[facility]ORATORYCLIA [id number] [place], [place] [id number] [place] [address] [place] Chloride [Moles/Vol] 107 mmol/L High 97-105 [facility] Comment on above: Order Comment: Speci men Type: BLOOD SPECIMEN Performed By: #### 2 777-1, , ####[facility] LABORATORYCLIA [id number] [address] STATES [facility] CO2 [Moles/Vol] 25 mmol/L Normal 22-30 [facility] Comment on above: Order Comment: Speci men Type: BLOOD SPECIMEN Performed By: #### 2 777-1, , ####[facility] LABORATORYCLIA [id number] [address] Creatinine [Mass/Vol] 0.77 mg/dL Normal 0.73-1.22 [facility] Comment on above: Order Comment: Speci men Type: BLOOD SPECIMEN Performed By: #### 2 777-1, , ####[facility] LABORATORYCLIA [id number] [address] [place] GFR/1.73 sq M.predicted MDRD (S/P/Bld) [Vol rate/Area] mL/min/{1.73_m2} Normal [facility] Comment on above: Order Comment: Speci [...] GFR. Performed By: #### 2 777-1, , ####[facility] LABORATORYCLIA [id number] [place] [address] [place] Glucose [Mass/Vol] 107 mg/dL High 74-99 [facility] Comment on above: Order Comment: Speci men Type: BLOOD SPECIMEN Result Comment: The [place] [employer] (ADA) provides guidance for cutoff [...] Standards of Medical Care in Diabetes 2016, [place] [employer]. Diabetes Care. 2016.39(Suppl 1). Performed By: #### 2 777-1, , 83559-1 ####[facility] LABORATORYCLIA [id number] [address] [place] Potassium [Moles/Vol] 3.1 mmol/L Low 3.7-5.1 [facility] Comment on above: Order Comment: Speci men Type: BLOOD SPECIMEN Performed By: #### 2 777-1, , ####[facility] LABORATORYCLIA [id number] [address] [place] Urea nitrogen [Mass/Vol] 19 mg/dL Normal 9-24 [facility] Comment on above: Order Comment: Speci men Type: BLOOD SPECIMEN Performed By: #### 2 777-1, , ####[facility] LABORATORYCLIA [id number] [address] [place] CBC panel Auto (Bld)on 06-04 Erythrocyte distribution width (RBC) [Ratio] 15.8 % High 11.5-15.0 [facility] Comment on above: Order Comment: Speci men Type: BLOOD SPECIMEN Performed By: #### 5 8410-2 ####[facility] LABORATORYCLIA [id number] [address] Hematocrit (Bld) [Volume fraction] 36.9 % Low 39.0-51.0 [facility] Comment on above: Order Comment: Speci men Type: BLOOD SPECIMEN Performed By: #### 5 8410-2 ####[facility] LABORATORYCLIA [id number] [address] Hemoglobin (Bld) [Mass/Vol] 11.2 g/dL Low 13.0-17.0 [facility] Comment on above: Order Comment: Speci men Type: BLOOD SPECIMEN Performed By: #### 5 8410-2 ####[facility] LABORATORYCLIA [id number] [address] MCH (RBC) [Entitic mass] 27.3 pg Normal 26.0-34.0 [facility] Comment on above: Order Comment: Speci men Type: BLOOD SPECIMEN Performed By: #### 5 8410-2 ####[facility] LABORATORYCLIA [id number] [address] MCHC (RBC) [Mass/Vol] 30.4 g/dL Low 30.5-36.0 [facility] Comment on above: Order Comment: Speci men Type: BLOOD SPECIMEN Performed By: #### 5 8410-2 ####[facility] LABORATORYCLIA [id number] [address] MCV (RBC) [Entitic vol] 89.8 fL Normal 80.0-100.0 [facility] Comment on above: Order Comment: Speci men Type: BLOOD SPECIMEN Performed By: #### 5 8410-2 ####[facility] LABORATORYCLIA [id number] [address] Nucleated RBC (Bld) [#/Vol] 10*3/uL Normal <0.01 [facility] Comment on above: Order Comment: Speci men Type: BLOOD SPECIMEN Performed By: #### 5 8410-2 ####[facility]ORATORYCLIA [id number] [address] Platelet mean volume (Bld) [Entitic vol] 10.7 fL Normal 9.0-12.7 [facility] Comment on above: Order Comment: Speci men Type: BLOOD SPECIMEN Performed By: #### 5 8410-2 ####[facility] LABORATORYCLIA [id number] [address] [facility] Platelets (Bld) [#/Vol] 174 10*3/uL Normal 150-400 [facility] Comment on above: Order Comment: Speci men Type: BLOOD SPECIMEN Performed By: #### 5 8410-2 ####[facility] LABORATORYCLIA [id number] [address] RBC (Bld) [#/Vol] 4.11 10*6/uL Low 4.20-6.00 [facility] Comment on above: Order Comment: Speci men Type: BLOOD SPECIMEN Performed By: #### 5 8410-2 ####[facility] LABORATORYCLIA [id number] [address] WBC (Bld) [#/Vol] 8.29 10*3/uL Normal 3.70-11.00 [facility] Comment on above: Order Comment: Speci men Type: BLOOD SPECIMEN Performed By: #### 5 8410-2 ####[facility] LABORATORYCLIA [id number] [address] [facility] CONSULT PROGon 06-04-2021 CONSULT PROG Normal [facility] CT BRAIN WO IVCONon 06-04-[address] BRAIN WO IVCON Normal [facility] CT CHEST W IVCON PEon 2021 CT CHEST W IVCON PE Normal [facility] Magnesium SerPl-mCncon 06-04 Magnesium [Mass/Vol] 2.2 mg/dL Normal 1.7-2.3 [facility] Comment on above: Order Comment: Speci men Type: BLOOD SPECIMEN Performed By: #### 2 777-1, 46122-2, 80931-9 ####[facility] LABORATORYCLIA [id number] [address] NT-proBNP SerPl-ncon 06-04 Natriuretic peptide.B prohormone N-Terminal [Mass/Vol] 229 pg/mL High <125 [facility] Comment on above: Order Comment: Speci men Type: BLOOD SPECIMEN Performed By: #### 3 3762-6, 4091-5 ####[facility] LABORATORYCLIA [id number] [address] [place] Phosphate SerPl-ncon 06-04 Phosphate [Mass/Vol] 2.0 mg/dL Low 2.7-4.8 [facility] Comment on above: Order Comment: Speci men Type: BLOOD SPECIMEN Performed By: #### 2 777-1, , 62441-7 ####[facility] [id number] [address] Vancomycin random [Mass/Vol] on 06-04-2021 Vancomycin [Mass/Vol] 35.2 ug/mL High 10.0-20.0 [facility] Comment on above: Order Comment: Speci men Type: BLOOD SPECIMEN Result Comment: Refe rence ranges and high/low indicator flags are provided as general guidelines only. The treating physician must determine appropriate target levels/dosing based on the specific clinical situation. Performed By: #### 3 3762-6, 4091-5 ####[facility] LABORATORYCLIA [id number] [address] [facility] XR ABDOMEN 1V SUPINEon 06-04 XR ABDOMEN 1V SUPINE Normal [facility] ALLIED HEALTHon 06-03-2021 ALLIED HEALTH Normal [facility] ARTERIAL BLOOD GASESon 06-03 Base excess Calc (Bld) [Moles/Vol] 5 mmol/L High 0-2 [facility] Comment on above: Order Comment: Speci men Type: ARTERIAL BLOOD SPECIMEN Performed By: #### A LLBG ####[facility]ATORYCLIA [id number] [address] Body temperature 99.5 [degF] Normal [facility] Comment on above: Order Comment: Speci men Type: ARTERIAL BLOOD SPECIMEN Performed By: #### A LLBG ####[facility]ORYCLIA [id number] [address] CALCIUM IONIZED, PH CORRECTED 1.18 mmol/L Normal 1.08-1.30 [facility] Comment on above: Order Comment: Speci men Type: ARTERIAL BLOOD SPECIMEN Performed By: #### A LLBG ####[facility] LABORATORYCLIA [id number] [address] Calcium.ionized (BldV) [Mass/Vol] 1.16 mmol/L Normal 1.08-1.30 [facility] Comment on above: Order Comment: Speci men Type: ARTERIAL BLOOD SPECIMEN Performed By: #### A LLBG ####[facility] LABORATORYCLIA [id number] [address] Carboxyhemoglobin (BldA) [Mass fraction] 1.2 % Normal 0.0-2.0 [facility] Comment on above: Order Comment: Speci men Type: ARTERIAL BLOOD SPECIMEN Result Comment: Carb oxyhemoglobin Reference Range for Smokers: 2.0-8.0% Performed By: #### A LLBG ####[facility] LABORATORYCLIA [id number] [address] CO2 (Bld) [Partial pressure] 45 mm Hg Normal 36-46 [facility] Comment on above: Order Comment: Speci men Type: ARTERIAL BLOOD SPECIMEN Performed By: #### A LLBG ####[facility]ORATORYCLIA [id number] [address] CO2 [Moles/Vol] 26.9 mmol/L Normal 22-28 [facility] Comment on above: Order Comment: Speci men Type: ARTERIAL BLOOD SPECIMEN Performed By: #### A LLBG ####[facility]ORYCLIA [id number] [address] CO2 adjusted to patient's actual temperature (Bld) [Partial pressure] 47 mmHg High 36-46 [facility] Comment on above: Order Comment: Speci men Type: ARTERIAL BLOOD SPECIMEN Performed By: #### A LLBG ####[facility]ORYCLIA [id number] [address] Glucose [Mass/Vol] 141 mg/dL High 60-105 [facility] Comment on above: Order Comment: Speci men Type: ARTERIAL BLOOD SPECIMEN Performed By: #### A LLBG ####[facility]ORYCLIA [id number] [address] HCO3 (Bld) [Moles/Vol] 30 mmol/L High 22-26 [facility] Comment on above: Order Comment: Speci men Type: ARTERIAL BLOOD SPECIMEN Performed By: #### A LLBG ####[facility]ORYCLIA [id number] [address] Hematocrit (Bld) [Volume fraction] 35.8 % Low 39.0-51.0 [facility] Comment on above: Order Comment: Speci men Type: ARTERIAL BLOOD SPECIMEN Performed By: #### A LLBG ####[facility]ORATORYCLIA [id number] [address] Hemoglobin (Bld) [Mass/Vol] 11.6 g/dL Low 13.0-17.0 [facility] Comment on above: Order Comment: Speci men Type: ARTERIAL BLOOD SPECIMEN Performed By: #### A LLBG ####[facility]ORYCLIA [id number] [address] Methemoglobin (Bld) [Mass fraction] % Normal 0.0-1.5 [facility] Comment on above: Order Comment: Speci men Type: ARTERIAL BLOOD SPECIMEN Performed By: #### A LLBG ####[facility]ORYCLIA [id number] [address] O2 THERAPY Ventilator Normal [facility] Comment on above: Order Comment: Speci men Type: ARTERIAL BLOOD SPECIMEN Performed By: #### A LLBG ####[facility]ORYCLIA [id number] [address] Oxygen (Bld) [Partial pressure] 69 mm Hg Low 85-95 [facility] Comment on above: Order Comment: Speci men Type: ARTERIAL BLOOD SPECIMEN Performed By: #### A LLBG ####[facility]ORYCLIA [id number] [address] Oxygen adjusted to patient's actual temperature (Bld) [Partial pressure] 70.8 mmHg Low 85-95 [facility] Comment on above: Order Comment: Speci men Type: ARTERIAL BLOOD SPECIMEN Performed By: #### A LLBG ####[facility]ORYCLIA [id number] [address] OXYGEN SATURATION, ARTERIAL 94 % Low 95-98 [facility] Comment on above: Order Comment: Speci men Type: ARTERIAL BLOOD SPECIMEN Performed By: #### A LLBG ####[facility]ORYCLIA [id number] [address] [place] Oxyhemoglobin (BldA) [Mass fraction] 93 % Low 95-98 [facility] Comment on above: Order Comment: Speci men Type: ARTERIAL BLOOD SPECIMEN Performed By: #### A LLBG ####[facility]ORYCLIA [id number] [address] [place] pH (Bld) 7.43 [pH] Normal 7.35-7.45 [facility] Comment on above: Order Comment: Speci men Type: ARTERIAL BLOOD SPECIMEN Performed By: #### A LLBG ####[facility]ORYCLIA [id number] [address] pH adjusted to patient's actual temperature (Bld) 7.43 Normal 7.35-7.45 [facility] Comment on above: Order Comment: Speci men Type: ARTERIAL BLOOD SPECIMEN Performed By: #### A LLBG ####[facility]ORYCLIA [id number] [address] STATES [facility] Potassium [Moles/Vol] 3.1 mmol/L Low 3.5-5.0 [facility] Comment on above: Order Comment: Speci men Type: ARTERIAL BLOOD SPECIMEN Performed By: #### A LLBG ####[facility]ORATORYCLIA [id number] [address] Sodium [Moles/Vol] 145 mmol/L High 136-144 [facility] Comment on above: Order Comment: Speci men Type: ARTERIAL BLOOD SPECIMEN Performed By: #### A LLBG ####[facility] LABORATORYCLIA [id number] [address] ASPERGILLUS GALACTOMANNAN SE RUMon 06-03-2021 Galactomannan Ag IA Ql Negative Normal NEGAT [facility] Comment on above: Order Comment: Speci men [...] is suspected. Performed By: #### A SGALS ####[facility] LABCLIA [id number] [place] [facility] [address] [place] Galactomannan Ag IA Qn <0.50 Normal [facility] Comment on above: Order Comment: Speci men Type: BLOOD SPECIMEN Result Comment: Inde x Values are Interpreted as Follows:Negative specimens <0.50Positive specimens >=0.50 Performed By: #### A SGALS ####[facility] LABCLIA [id number] [facility] [facility] [place] [id number] [place] Basic metabolic 2000 panelon 06-03-2021 Anion gap [Moles/Vol] 8 mmol/L Low 9-18 [facility] Comment on above: Order Comment: Speci men Type: BLOOD SPECIMEN Performed By: #### 1 9123-9, 2777, 66921-0 ####[facility] LABORATORYCLIA [id number] [address] Calcium [Mass/Vol] 8.0 mg/dL Low 8.5-10.2 [facility] Comment on above: Order Comment: Speci men Type: BLOOD SPECIMEN Performed By: #### 1 9123-9, 27711-04, 34169-4 ####[facility]ORATORYCLIA [id number] [address] Chloride [Moles/Vol] 110 mmol/L High 97-105 [facility] Comment on above: Order Comment: Speci men Type: BLOOD SPECIMEN Performed By: #### 1 9123-9, 2776-05, 25410-4 ####[facility] LABORATORYCLIA [id number] [address] CO2 [Moles/Vol] 28 mmol/L Normal 22-30 [facility] Comment on above: Order Comment: Speci men Type: BLOOD SPECIMEN Performed By: #### 1 9123-9, 2776-05, 92019-2 ####[facility] LABORATORYCLIA [id number] [address] STATES [facility] Creatinine [Mass/Vol] 0.75 mg/dL Normal 0.73-1.22 [facility] Comment on above: Order Comment: Speci men Type: BLOOD SPECIMEN Performed By: #### 1 9123-9, 2777, ####[facility] LABORATORYCLIA [id number] [address] [place] GFR/1.73 sq M.predicted MDRD (S/P/Bld) [Vol rate/Area] mL/min/{1.73_m2} Normal [facility] Comment on above: Order Comment: Speci [...] GFR. Performed By: #### 1 9123-9, 2777-, 43195-2 ####[facility] LABORATORYCLIA [id number] [place] [address] [place] Glucose [Mass/Vol] 141 mg/dL High 74-99 [facility] Comment on above: Order Comment: Speci men Type: BLOOD SPECIMEN Result Comment: The [place] [employer] (ADA) provides guidance for cutoff [...] Standards of Medical Care in Diabetes 2016, [place] [employer]. Diabetes Care. 2016.39(Suppl 1). Performed By: #### 1 9123-9, 2777, 23104-3 ####[facility] LABORATORYIA [id number] [address] [place] Potassium [Moles/Vol] 3.3 mmol/L Low 3.7-5.1 [facility] Comment on above: Order Comment: Speci men Type: BLOOD SPECIMEN Performed By: #### 1 9123-9, 2777-, 20894-6 ####[facility] LABORATORYCLIA [id number] [address] [place] Sodium [Moles/Vol] 146 mmol/L High 136-144 [facility] Comment on above: Order Comment: Speci men Type: BLOOD SPECIMEN Performed By: #### 1 9123-9, 2777-1, 50126-4 ####[facility] LABORATORYCLIA [id number] [address] Urea nitrogen [Mass/Vol] 10 mg/dL Normal 9-24 [facility] Comment on above: Order Comment: Speci men Type: BLOOD SPECIMEN Performed By: #### 1 9123-9, 2777-1, 43959-2 ####[facility] LABORATORYCLIA [id number] [address] CASE MANAGEMon 06-03-2021 CASE MANAGEM Normal [facility] CBC panel Auto (Bld)on 06-03 Erythrocyte distribution width (RBC) [Ratio] 15.6 % High 11.5-15.0 [facility] Comment on above: Order Comment: Speci men Type: BLOOD SPECIMEN Performed By: #### 5 8410-2 ####[facility] LABORATORYCLIA [id number] [address] Hematocrit (Bld) [Volume fraction] 36.9 % Low 39.0-51.0 [facility] Comment on above: Order Comment: Speci men Type: BLOOD SPECIMEN Performed By: #### 5 8410-2 ####[facility] LABORATORYCLIA [id number] [address] Hemoglobin (Bld) [Mass/Vol] 11.1 g/dL Low 13.0-17.0 [facility] Comment on above: Order Comment: Speci men Type: BLOOD SPECIMEN Performed By: #### 5 8410-2 ####[facility] LABORATORYCLIA [id number] [address] MCH (RBC) [Entitic mass] 27.0 pg Normal 26.0-34.0 [facility] Comment on above: Order Comment: Speci men Type: BLOOD SPECIMEN Performed By: #### 5 8410-2 ####[facility] LABORATORYCLIA [id number] [address] MCHC (RBC) [Mass/Vol] 30.1 g/dL Low 30.5-36.0 [facility] Comment on above: Order Comment: Speci men Type: BLOOD SPECIMEN Performed By: #### 5 8410-2 ####[facility] LABORATORYCLIA [id number] [address] MCV (RBC) [Entitic vol] 89.8 fL Normal 80.0-100.0 [facility] Comment on above: Order Comment: Speci men Type: BLOOD SPECIMEN Performed By: #### 5 8410-2 ####[facility] LABORATORYCLIA [id number] [address] Nucleated RBC (Bld) [#/Vol] 10*3/uL Normal <0.01 [facility] Comment on above: Order Comment: Speci men Type: BLOOD SPECIMEN Performed By: #### 5 8410-2 ####[facility] LABORATORYCLIA [id number] [address] Platelet mean volume (Bld) [Entitic vol] 10.5 fL Normal 9.0-12.7 [facility] Comment on above: Order Comment: Speci men Type: BLOOD SPECIMEN Performed By: #### 5 8410-2 ####[facility] LABORATORYCLIA [id number] [address] Platelets (Bld) [#/Vol] 196 10*3/uL Normal 150-400 [facility] Comment on above: Order Comment: Speci men Type: BLOOD SPECIMEN Performed By: #### 5 8410-2 ####[facility] LABORATORYCLIA [id number] [address] RBC (Bld) [#/Vol] 4.11 10*6/uL Low 4.20-6.00 [facility] Comment on above: Order Comment: Speci men Type: BLOOD SPECIMEN Performed By: #### 5 8410-2 ####[facility] LABORATORYCLIA [id number] [address] WBC (Bld) [#/Vol] 8.18 10*3/uL Normal 3.70-11.00 [facility] Comment on above: Order Comment: Speci men Type: BLOOD SPECIMEN Performed By: #### 5 8410-2 ####[facility] LABORATORYCLIA [id number] [address] [place] CONSULTon 06-03-2021 CONSULT Normal [facility] CONSULT PROGon 06-03-2021 CONSULT PROG Normal [facility] Gas and Carbon monoxide pane l (BldV)on 06-03-2021 Base excess Calc (BldV) [Moles/Vol] 1.4 mmol/L Normal 0-2 [facility] Comment on above: Order Comment: Speci men Type: VENOUS BLOOD SPECIMEN Performed By: #### 2 4344-4 ####[facility] LABORATORYCLIA [id number] [address] Body temperature 98.42 [degF] Normal [facility] Comment on above: Order Comment: Speci men Type: VENOUS BLOOD SPECIMEN Performed By: #### 2 4344-4 ####[facility] LABORATORYCLIA [id number] [address] CALCIUM IONIZED, PH CORRECTED 1.09 mmol/L Normal 1.08-1.30 [facility] Comment on above: Order Comment: Speci men Type: VENOUS BLOOD SPECIMEN Performed By: #### 2 4344-4 ####[facility] LABORATORYCLIA [id number] [address] Calcium.ionized (BldV) [Mass/Vol] 1.12 mmol/L Normal 1.08-1.30 [facility] Comment on above: Order Comment: Speci men Type: VENOUS BLOOD SPECIMEN Performed By: #### 2 4344-4 ####[facility] LABORATORYCLIA [id number] [address] [place] Carboxyhemoglobin (BldV) [Mass fraction] 1.7 % Normal 0.0-2.0 [facility] Comment on above: Order Comment: Speci men Type: VENOUS BLOOD SPECIMEN Result Comment: Carb oxyhemoglobin Reference Range for Smokers: 2.0-8.0% Performed By: #### 2 4344-4 ####[facility]ATORYCLIA [id number] [address] CO2 (BldV) [Partial pressure] 50 mm[Hg] Normal 42-55 [facility] Comment on above: Order Comment: Speci men Type: VENOUS BLOOD SPECIMEN Performed By: #### 2 4344-4 ####[facility]ORATORYCLIA [id number] [address] CO2 [Moles/Vol] 24.9 mmol/L Low 25-29 [facility] Comment on above: Order Comment: Speci men Type: VENOUS BLOOD SPECIMEN Performed By: #### 2 4344-4 ####[facility] LABORATORYCLIA [id number] [address] CO2 adjusted to patient's actual temperature (BldV) [Partial pressure] 50 mmHg Normal 42-55 [facility] Comment on above: Order Comment: Speci men Type: VENOUS BLOOD SPECIMEN Performed By: #### 2 4344-4 ####[facility] LABORATORYCLIA [id number] [address] FIO2 30 % Normal [facility] Comment on above: Order Comment: Speci men Type: VENOUS BLOOD SPECIMEN Performed By: #### 2 4344-4 ####[facility]ORATORYCLIA [id number] [address] Glucose [Mass/Vol] 191 mg/dL High 60-105 [facility] Comment on above: Order Comment: Speci men Type: VENOUS BLOOD SPECIMEN Performed By: #### 2 4344-4 ####[facility]ATORYCLIA [id number] [address] HCO3 (Bld) [Moles/Vol] 27.1 mmol/L Normal 24-28 [facility] Comment on above: Order Comment: Speci men Type: VENOUS BLOOD SPECIMEN Performed By: #### 2 4344-4 ####[facility]ATORYCLIA [id number] [address] Hematocrit (Bld) [Volume fraction] 36.2 % Low 39.0-51.0 [facility] Comment on above: Order Comment: Speci men Type: VENOUS BLOOD SPECIMEN Performed By: #### 2 4344-4 ####[facility]ORATORYCLIA [id number] [address] [place] Hemoglobin (Bld) [Mass/Vol] 11.8 g/dL Low 13.0-17.0 [facility] Comment on above: Order Comment: Speci men Type: VENOUS BLOOD SPECIMEN Performed By: #### 2 4344-4 ####[facility]ORATORYCLIA [id number] [address] INHALED TIDAL VOLUME (ML) 530 Normal [facility] Comment on above: Order Comment: Speci men Type: VENOUS BLOOD SPECIMEN Performed By: #### 2 4344-4 ####[facility]ATORYCLIA [id number] [address] Methemoglobin (Bld) [Mass fraction] % Normal 0.0-1.5 [facility] Comment on above: Order Comment: Speci men Type: VENOUS BLOOD SPECIMEN Performed By: #### 2 4344-4 ####[facility]ORATORYCLIA [id number] [address] [place] O2 THERAPY Ventilator Normal [facility] Comment on above: Order Comment: Speci men Type: VENOUS BLOOD SPECIMEN Performed By: #### 2 4344-4 ####[facility]ORATORYCLIA [id number] [address] Oxygen (BldV) [Partial pressure] 69 mm[Hg] High 35-45 [facility] Comment on above: Order Comment: Speci men Type: VENOUS BLOOD SPECIMEN Performed By: #### 2 4344-4 ####[facility]ATORYCLIA [id number] [place] [address] Oxygen adjusted to patient's actual temperature (BldV) [Partial pressure] 68.8 mmHg High 35-45 [facility] Comment on above: Order Comment: Speci men Type: VENOUS BLOOD SPECIMEN Performed By: #### 2 4344-4 ####[facility] LABORATORYCLIA [id number] [place], [place] [address] [place] [address] Oxygen saturation in Blood 92.4 % High 60-85 [facility] Comment on above: Order Comment: Speci men Type: VENOUS BLOOD SPECIMEN Performed By: #### 2 4344-4 ####[facility] LABORATORYCLIA [id number] [address] Oxyhemoglobin (BldV) [Mass fraction] 90 % High 60-85 [facility] Comment on above: Order Comment: Speci men Type: VENOUS BLOOD SPECIMEN Performed By: #### 2 4344-4 ####[facility] LABORATORYCLIA [id number] [address] PEEP/CPAP 8 cmH2O Normal [facility] Comment on above: Order Comment: Speci men Type: VENOUS BLOOD SPECIMEN Performed By: #### 2 4344-4 ####[facility] LABORATORYCLIA [id number] [address] pH (BldV) 7.35 [pH] Normal 7.32-7.42 [facility] Comment on above: Order Comment: Speci men Type: VENOUS BLOOD SPECIMEN Performed By: #### 2 4344-4 ####[facility]ATORYCLIA [id number] [address] pH adjusted to patient's actual temperature (BldV) 7.35 Normal 7.32-7.42 [facility] Comment on above: Order Comment: Speci men Type: VENOUS BLOOD SPECIMEN Performed By: #### 2 4344-4 ####[facility]ATORYCLIA [id number] [address] Potassium [Moles/Vol] 3.6 mmol/L Normal 3.5-5.0 [facility] Comment on above: Order Comment: Speci men Type: VENOUS BLOOD SPECIMEN Performed By: #### 2 4344-4 ####[facility] LABORATORYCLIA [id number] [address] SET VENTILATOR RESPIRATORY RATE (BPM) 18 BPM Normal [facility] Comment on above: Order Comment: Speci men Type: VENOUS BLOOD SPECIMEN Performed By: #### 2 4344-4 ####[facility] LABORATORYCLIA [id number] [address] Sodium [Moles/Vol] 141 mmol/L Normal 136-144 [facility] Comment on above: Order Comment: Speci men Type: VENOUS BLOOD SPECIMEN Performed By: #### 2 4344-4 ####[facility] LABORATORYCLIA [id number] [address] HIV 1+2 Ab IA Qlon 2 HIV 1 and 2 Ab IA.rapid Nom Normal [facility] Comment on above: Order Comment: Speci men Type: BLOOD SPECIMEN Result Comment: Test not indicated. Performed By: #### 3 1201-7, TOXMG ####[facility] LABORATORYCLIA [id number] [address] HIV 1+2 Ab+HIV1 p24 Ag IA Ql Non-Reactive Normal Nonreactive [facility] Comment on above: Order Comment: Speci [...] diagnoses. Performed By: #### 3 1201-7, TOXMG ####[facility] LABORATORYCLIA [id number] [address] HIVINT Normal [facility] Comment on above: Order Comment: Speci men Type: BLOOD SPECIMEN Result Comment: No e vidence of HIV-1 or HIV-2 infection. Should recent infection be suspected, repeat testing may be considered 2-3 weeks after this draw. Performed By: #### 3 1201-7, TOXMG ####[facility] LABORATORYCLIA [id number] [address] [place] Magnesium SerPl-mCncon 06-03 Magnesium [Mass/Vol] 1.9 mg/dL Normal 1.7-2.3 [facility] Comment on above: Order Comment: Speci men Type: BLOOD SPECIMEN Performed By: #### 1 9123-9, 2777-1, 64849-2 ####[facility] LABORATORYCLIA [id number] [address] [place] NUTRITIONon 06-03-2021 NUTRITION Normal [facility] Phosphate SerPl-mCncon 06-03 Phosphate [Mass/Vol] 1.9 mg/dL Low 2.7-4.8 [facility] Comment on above: Order Comment: Speci men Type: BLOOD SPECIMEN Performed By: #### 1 9123-9, 2777-1, 89115-7 ####[facility] LABORATORYCLIA [id number] [address] TOXOPLASMOSIS IGM AND IGG AB on 06-03-2021 TOXO IGG QUAL Negative Normal Negative [facility] Comment on above: Order Comment: Speci men Type: BLOOD SPECIMEN Result Comment: No s erological evidence of past exposure to Toxoplasma gondii. Cannot exclude recent infection if the specimen collected within 3-4 weeks after infection.Negative <6.4 IU/mLEquivocal 6.4-9.9 IU/mLPositive >=10.0 IU/mL Performed By: #### 3 1201-7, TOXMG ####[facility] LABORATORYCLIA [id number] [address] TOXO IGM QUAL Negative Normal Negative [facility] Comment on above: Order Comment: Speci men Type: BLOOD SPECIMEN Result Comment: No s erological evidence of recent exposure to Toxoplasma gondii.Negative <0.9 IndexEquivocal 0.9-0.99 IndexPositive >=1.0 Index Performed By: #### 3 1201-7, TOXMG ####[facility] LABORATORYCLIA [id number] [address] [place] US DVT LOWER BILon US DVT LOWER RAINER Normal [facility] XR CHEST 1V FRONTALon 2021 XR CHEST 1V FRONTAL Normal [facility] ARTERIAL BLOOD GASESon 06-02 Base excess Calc (Bld) [Moles/Vol] 2 mmol/L Normal 0-2 [facility] Comment on above: Order Comment: Speci men Type: ARTERIAL BLOOD SPECIMEN Performed By: #### A LLBG ####[facility] LABORATORYCLIA [id number] [address] Body temperature 99.32 [degF] Normal [facility] Comment on above: Order Comment: Speci men Type: ARTERIAL BLOOD SPECIMEN Performed By: #### A LLBG ####[facility] LABORATORYCLIA [id number] [address] STATES [facility] CALCIUM IONIZED, PH CORRECTED 1.15 mmol/L Normal 1.08-1.30 [facility] Comment on above: Order Comment: Speci men Type: ARTERIAL BLOOD SPECIMEN Performed By: #### A LLBG ####[facility] LABORATORYCLIA [id number] [address] STATES OF [facility] Calcium.ionized (BldV) [Mass/Vol] 1.13 mmol/L Normal 1.08-1.30 [facility] Comment on above: Order Comment: Speci men Type: ARTERIAL BLOOD SPECIMEN Performed By: #### A LLBG ####[facility] LABORATORYCLIA [id number] [address] [facility] Carboxyhemoglobin (BldA) [Mass fraction] 1.4 % Normal 0.0-2.0 [facility] Comment on above: Order Comment: Speci men Type: ARTERIAL BLOOD SPECIMEN Result Comment: Carb oxyhemoglobin Reference Range for Smokers: 2.0-8.0% Performed By: #### A LLBG ####[facility]ATORYCLIA [id number] [address] CO2 (Bld) [Partial pressure] 39 mm Hg Normal 36-46 [facility] Comment on above: Order Comment: Speci men Type: ARTERIAL BLOOD SPECIMEN Performed By: #### A LLBG ####[facility]ATORYCLIA [id number] [address] CO2 [Moles/Vol] 23.4 mmol/L Normal 22-28 [facility] Comment on above: Order Comment: Speci men Type: ARTERIAL BLOOD SPECIMEN Performed By: #### A LLBG ####[facility]ATORYCLIA [id number] [address] CO2 adjusted to patient's actual temperature (Bld) [Partial pressure] 40 mmHg Normal 36-46 [facility] Comment on above: Order Comment: Speci men Type: ARTERIAL BLOOD SPECIMEN Performed By: #### A LLBG ####[facility] LABORATORYCLIA [id number] [address] [facility] Glucose [Mass/Vol] 156 mg/dL High 60-105 [facility] Comment on above: Order Comment: Speci men Type: ARTERIAL BLOOD SPECIMEN Performed By: #### A LLBG ####[facility]ATORYCLIA [id number] [address] [facility] HCO3 (Bld) [Moles/Vol] 26 mmol/L Normal 22-26 [facility] Comment on above: Order Comment: Speci men Type: ARTERIAL BLOOD SPECIMEN Performed By: #### A LLBG ####[facility]ATORYCLIA [id number] [address] Hematocrit (Bld) [Volume fraction] 33.9 % Low 39.0-51.0 [facility] Comment on above: Order Comment: Speci men Type: ARTERIAL BLOOD SPECIMEN Performed By: #### A LLBG ####[facility]ATORYCLIA [id number] [address] Hemoglobin (Bld) [Mass/Vol] 11.0 g/dL Low 13.0-17.0 [facility] Comment on above: Order Comment: Speci men Type: ARTERIAL BLOOD SPECIMEN Performed By: #### A LLBG ####[facility]ORATORYCLIA [id number] [address] [facility] Methemoglobin (Bld) [Mass fraction] % Normal 0.0-1.5 [facility] Comment on above: Order Comment: Speci men Type: ARTERIAL BLOOD SPECIMEN Performed By: #### A LLBG ####[facility]ATORYCLIA [id number] [address] O2 THERAPY Ventilator Normal [facility] Comment on above: Order Comment: Speci men Type: ARTERIAL BLOOD SPECIMEN Performed By: #### A LLBG ####[facility]ATORYCLIA [id number] [address] Oxygen (Bld) [Partial pressure] 70 mm Hg Low 85-95 [facility] Comment on above: Order Comment: Speci men Type: ARTERIAL BLOOD SPECIMEN Performed By: #### A LLBG ####[facility]ATORYCLIA [id number] [address] Oxygen adjusted to patient's actual temperature (Bld) [Partial pressure] 72.2 mmHg Low 85-95 [facility] Comment on above: Order Comment: Speci men Type: ARTERIAL BLOOD SPECIMEN Performed By: #### A LLBG ####[facility]ATORYCLIA [id number] [address] OXYGEN SATURATION, ARTERIAL 96 % Normal 95-98 [facility] Comment on above: Order Comment: Speci men Type: ARTERIAL BLOOD SPECIMEN Performed By: #### A LLBG ####[facility]ATORYCLIA [id number] [address] [place] Oxyhemoglobin (BldA) [Mass fraction] 94 % Low 95-98 [facility] Comment on above: Order Comment: Speci men Type: ARTERIAL BLOOD SPECIMEN Performed By: #### A LLBG ####[facility]ORYCLIA [id number] [address] pH (Bld) 7.43 [pH] Normal 7.35-7.45 [facility] Comment on above: Order Comment: Speci men Type: ARTERIAL BLOOD SPECIMEN Performed By: #### A LLBG ####[facility]ATORYCLIA [id number] [address] pH adjusted to patient's actual temperature (Bld) 7.42 Normal 7.35-7.45 [facility] Comment on above: Order Comment: Speci men Type: ARTERIAL BLOOD SPECIMEN Performed By: #### A LLBG ####[facility] LABORATORYCLIA [id number] [address] Potassium [Moles/Vol] 2.6 mmol/L Low 3.5-5.0 [facility] Comment on above: Order Comment: Speci men Type: ARTERIAL BLOOD SPECIMEN Performed By: #### A LLBG ####[facility] LABORATORYCLIA [id number] [address] Sodium [Moles/Vol] 142 mmol/L Normal 136-144 [facility] Comment on above: Order Comment: Speci men Type: ARTERIAL BLOOD SPECIMEN Performed By: #### A LLBG ####[facility] LABORATORYCLIA [id number] [address] [facility] Ammonia Plas-sCncon 06-02-19 22 Ammonia (P) [Moles/Vol] 20 umol/L Normal 16-60 [facility] Comment on above: Order Comment: Speci men Type: BLOOD SPECIMEN Performed By: #### 1 6362-6 ####[facility]ORYCLIA [id number] [address] Bacteria CSF Culton 06-02-19 22 Bacteria identified Cx Nom (CSF) CULTURE, CSF: No growth 14 days GRAM STAIN: No organisms seen Rare Polymorphonuclear leukocytes Gram stain performed on cytospun specimen. Normal [facility] Comment on above: Performed By: #### 6 06-4 ####[facility] LABORATORYCLIA [id number] [address] STATES [place] [facility] Basic metabolic 2000 panelon 06-02-2021 Anion gap [Moles/Vol] 10 mmol/L Normal 9-18 [facility] Comment on above: Order Comment: Speci men Type: BLOOD SPECIMEN Performed By: #### 2 4321-2, , 2776-05 ####[facility]ORYCLIA [id number] [address] [place] Calcium [Mass/Vol] 8.1 mg/dL Low 8.5-10.2 [facility] Comment on above: Order Comment: Speci men Type: BLOOD SPECIMEN Performed By: #### 2 4321-2, , 2776-05 ####[facility] LABORATORYCLIA [id number] [address] [place] [facility] Chloride [Moles/Vol] 108 mmol/L High 97-105 [facility] Comment on above: Order Comment: Speci men Type: BLOOD SPECIMEN Performed By: #### 2 4321-2, , 2776-05 ####[facility]ORYCLIA [id number] [address] [place] CO2 [Moles/Vol] 24 mmol/L Normal 22-30 [facility] Comment on above: Order Comment: Speci men Type: BLOOD SPECIMEN Performed By: #### 2 4321-2, , 2776-05 ####[facility] LABORATORYCLIA [id number] [address] [place] Creatinine [Mass/Vol] 0.78 mg/dL Normal 0.73-1.22 [facility] Comment on above: Order Comment: Speci men Type: BLOOD SPECIMEN Performed By: #### 2 4321-2, , 2776-05 ####[facility]ATORYCLIA [id number] [place] [id number] [place] GFR/1.73 sq M.predicted MDRD (S/P/Bld) [Vol rate/Area] mL/min/{1.73_m2} Normal [facility] Comment on above: Order Comment: Speci [...] actual GFR. Performed By: #### 2 4321-2, 06982-7, 7- ####[facility] LABORATORYCLIA [id number] [place] [address] [place] Glucose [Mass/Vol] 162 mg/dL High 74-99 [facility] Comment on above: Order Comment: Speci men Type: BLOOD SPECIMEN Result Comment: The [place] [employer] (ADA) provides guidance for cutoff [...] Standards of Medical Care in Diabetes 2016, [place] [employer]. Diabetes Care. 2016.39(Suppl 1). Performed By: #### 2 4321-2, 84660-2, 2776- ####[facility] LABORATORYCLIA [id number] [place] [address] [place] Potassium [Moles/Vol] 2.7 mmol/L Low 3.7-5.1 [facility] Comment on above: Order Comment: Speci men Type: BLOOD SPECIMEN Performed By: #### 2 4321-2, 16382-6, 2776-05 ####[facility] LABORATORYCLIA [id number] [address] Sodium [Moles/Vol] 142 mmol/L Normal 136-144 [facility] Comment on above: Order Comment: Speci men Type: BLOOD SPECIMEN Performed By: #### 2 4321-2, , 2776-05 ####[facility] LABORATORYCLIA [id number] [address] Urea nitrogen [Mass/Vol] 12 mg/dL Normal 9-24 [facility] Comment on above: Order Comment: Speci men Type: BLOOD SPECIMEN Performed By: #### 2 4321-2, , 2776-05 ####[facility] LABORATORYCLIA [id number] [address] CBC panel Auto (Bld)on 06-02 Erythrocyte distribution width (RBC) [Ratio] 15.0 % Normal 11.5-15.0 [facility] Comment on above: Order Comment: Speci men Type: BLOOD SPECIMEN Performed By: #### 5 8410-2 ####[facility] LABORATORYCLIA [id number] [address] Hematocrit (Bld) [Volume fraction] 34.3 % Low 39.0-51.0 [facility] Comment on above: Order Comment: Speci men Type: BLOOD SPECIMEN Performed By: #### 5 8410-2 ####[facility] LABORATORYCLIA [id number] [address] Hemoglobin (Bld) [Mass/Vol] 10.3 g/dL Low 13.0-17.0 [facility] Comment on above: Order Comment: Speci men Type: BLOOD SPECIMEN Performed By: #### 5 8410-2 ####[facility]ATORYCLIA [id number] [place] [address] MCH (RBC) [Entitic mass] 27.0 pg Normal 26.0-34.0 [facility] Comment on above: Order Comment: Speci men Type: BLOOD SPECIMEN Performed By: #### 5 8410-2 ####[facility] LABORATORYCLIA [id number] [address] MCHC (RBC) [Mass/Vol] 30.0 g/dL Low 30.5-36.0 [facility] Comment on above: Order Comment: Speci men Type: BLOOD SPECIMEN Performed By: #### 5 8410-2 ####[facility] LABORATORYCLIA [id number] [address] MCV (RBC) [Entitic vol] 90.0 fL Normal 80.0-100.0 [facility] Comment on above: Order Comment: Speci men Type: BLOOD SPECIMEN Performed By: #### 5 8410-2 ####[facility] LABORATORYCLIA [id number] [address] Nucleated RBC (Bld) [#/Vol] 10*3/uL Normal <0.01 [facility] Comment on above: Order Comment: Speci men Type: BLOOD SPECIMEN Performed By: #### 5 8410-2 ####[facility] LABORATORYCLIA [id number] [address] Platelet mean volume (Bld) [Entitic vol] 10.2 fL Normal 9.0-12.7 [facility] Comment on above: Order Comment: Speci men Type: BLOOD SPECIMEN Performed By: #### 5 8410-2 ####[facility] LABORATORYCLIA [id number] [address] Platelets (Bld) [#/Vol] 194 10*3/uL Normal 150-400 [facility] Comment on above: Order Comment: Speci men Type: BLOOD SPECIMEN Performed By: #### 5 8410-2 ####[facility] LABORATORYCLIA [id number] [address] RBC (Bld) [#/Vol] 3.81 10*6/uL Low 4.20-6.00 [facility] Comment on above: Order Comment: Speci men Type: BLOOD SPECIMEN Performed By: #### 5 8410-2 ####[facility] LABORATORYCLIA [id number] [address] WBC (Bld) [#/Vol] 9.22 10*3/uL Normal 3.70-11.00 [facility] Comment on above: Order Comment: Speci men Type: BLOOD SPECIMEN Performed By: #### 5 8410-2 ####[facility] LABORATORYCLIA [id number] [address] CONSULT PROGon 06-02-2021 CONSULT PROG Normal [facility] CSF MANUAL DIFFon 06-02-2021 DIF TTL, CSF 25 cells counted Normal [facility] Comment on above: Order Comment: Speci men Type: CEREBROSPINAL FLUID Performed By: #### 3 4563-7, [id number], [id number] ####[facility] LABORATORYCLIA [id number] [address] LYMPH%, CSF 4 % Low 50-90 [facility] Comment on above: Order Comment: Speci men Type: CEREBROSPINAL FLUID Performed By: #### 3 4563-7, [id number], [id number] ####[facility]ORATORYCLIA [id number] [address] OF [place]%, CSF 4 % High <1 [facility] Comment on above: Order Comment: Speci men Type: CEREBROSPINAL FLUID Performed By: #### 3 4563-7, [id number], [id number] ####[facility]ATORYCLIA [id number] [address] OF [place]%, CSF 20 % Normal 10-50 [facility] Comment on above: Order Comment: Speci men Type: CEREBROSPINAL FLUID Performed By: #### 3 4563-7, [id number], [id number] ####[facility]ORATORYCLIA [id number] [address] NEUT%, CSF 72 % High 0-3 [facility] Comment on above: Order Comment: Speci men Type: CEREBROSPINAL FLUID Performed By: #### 3 4563-7, [id number], [id number] ####[facility] LABORATORYCLIA [id number] [address] CSF PATHOLOGIST INTERP (LAB REFLEX ORDER-NO BILL)on 06-02-2021 CSF STAFF REVIEW Negative [facility] Comment on above: Order Comment: Speci men Type: CEREBROSPINAL FLUID Performed By: #### 3 4563-7, [id number], [id number] ####[facility] LABORATORYCLIA [id number] [address] Pathologist name Reviewed by Amador Stevens MD [facility] Comment on above: Order Comment: Speci men Type: CEREBROSPINAL FLUID Performed By: #### 3 4563-7, [id number], [id number] ####[facility] LABORATORYCLIA [id number] [address] Cell count panel (CSF)on Clarity (CSF) Clear Normal Clear [facility] Comment on above: Order Comment: Speci men Type: CEREBROSPINAL FLUID Performed By: #### 3 4563-7, [id number], [id number] ####[facility]ORYCLIA [id number] [address] Clarity (Unsp spec) Not Indicated Normal Clear [facility] Comment on above: Order Comment: Speci men Type: CEREBROSPINAL FLUID Performed By: #### 3 4563-7, [id number], [id number] ####[facility]ATORYCLIA [id number] [address] Color (CSF) Colorless Normal Colorless [facility] Comment on above: Order Comment: Speci men Type: CEREBROSPINAL FLUID Performed By: #### 3 4563-7, [id number], [id number] ####[facility]ORYCLIA [id number] [address] Color (Spun CSF) Not Indicated Normal Colorless [facility] Comment on above: Order Comment: Speci men Type: CEREBROSPINAL FLUID Performed By: #### 3 4563-7, [id number], [id number] ####[facility] LABORATORYCLIA [id number] [address] CSF TUBE NUMBER Sterile Container Normal [facility] Comment on above: Order Comment: Speci men Type: CEREBROSPINAL FLUID Performed By: #### 3 4563-7, [id number], [id number] ####[facility] LABORATORYCLIA [id number] [address] RBC Manual cnt (CSF) [#/Vol] 117 cells/uL High 0-5 [facility] Comment on above: Order Comment: Speci men Type: CEREBROSPINAL FLUID Performed By: #### 3 4563-7, [id number], [id number] ####[facility] LABORATORYCLIA [id number] [address] WBC Manual cnt (CSF) [#/Vol] 1 cells/uL Normal 0-5 [facility] Comment on above: Order Comment: Speci men Type: CEREBROSPINAL FLUID Performed By: #### 3 4563-7, [id number], [id number] ####[facility] LABORATORYCLIA [id number] [address] Glucose CSF-ncon 2 Glucose (CSF) [Mass/Vol] 82 mg/dL High 40-70 [facility] Comment on above: Order Comment: Speci men Type: CEREBROSPINAL FLUID Result Comment: Lumb ar CSF glucose values of healthy patients are approximately 60% of the plasma values and must always be compared with a concurrently measured plasma value for adequate clinical interpretation.References: 1. Glucose HK (GLUC3) [package insert V 12.0 [place]]. [employer], [place], [place]. September 2015. 2. Michelle Moore, Loki, H. (2015). Chapter 7: Glucose and Lactate. F. Irina rose al.(eds.), Cerebrospinal Fluid in Clinical Neurology. [place]: [employer]. Performed By: #### 2 342-4 ####[facility]ATORYCLIA [id number] [address] HEPATIC FUNCTION PNLon 06-02 Albumin [Mass/Vol] 3.2 g/dL Low 3.9-4.9 [facility] Comment on above: Order Comment: Speci men Type: BLOOD SPECIMEN Performed By: #### H [place], 54294-5 ####[facility]ATORYCLIA [id number] [address] ALP [Catalytic activity/Vol] 67 U/L Normal 38-113 [facility] Comment on above: Order Comment: Speci men Type: BLOOD SPECIMEN Performed By: #### H FP, 10739-3 ####[facility]ATORYCLIA [id number] [address] ALT With P-5'-P [Catalytic activity/Vol] 16 U/L Normal 10-54 [facility] Comment on above: Order Comment: Speci men Type: BLOOD SPECIMEN Performed By: #### H [place], 69739-0 ####[facility]ATORYCLIA [id number] [address] AST With P-5'-P [Catalytic activity/Vol] 25 U/L Normal 14-40 [facility] Comment on above: Order Comment: Speci men Type: BLOOD SPECIMEN Performed By: #### H FP, 80752-6 ####[facility]ATORYCLIA [id number] [address] Bilirubin [Mass/Vol] 0.2 mg/dL Normal 0.2-1.3 [facility] Comment on above: Order Comment: Speci men Type: BLOOD SPECIMEN Performed By: #### H [place], 03641-8 ####[facility]ATORYCLIA [id number] [address] Bilirubin.conjugated [Mass/Vol] mg/dL Normal <0.2 [facility] Comment on above: Order Comment: Speci men Type: BLOOD SPECIMEN Performed By: #### Marin KATHIE, 38498-6 ####[facility] LABORATORYCLIA [id number] [address] Protein [Mass/Vol] 5.8 g/dL Low 6.3-8.0 [facility] Comment on above: Order Comment: Speci men Type: BLOOD SPECIMEN Performed By: #### Marin KATHIE, 12552-7 ####[facility] LABORATORYCLIA [id number] [address] [facility] MRI BRAIN WO/W IVCONon 06-02 MRI BRAIN WO/W IVCON Normal [facility] Magnesium SerPl-mCncon 06-02 Magnesium [Mass/Vol] 2.0 mg/dL Normal 1.7-2.3 [facility] Comment on above: Order Comment: Speci men Type: BLOOD SPECIMEN Performed By: #### 2 4321-2, 69188-4, 2777-1 ####[facility] LABORATORYCLIA [id number] [address] NT-proBNP SerPl-mCncon 06-02 Natriuretic peptide.B prohormone N-Terminal [Mass/Vol] 296 pg/mL High <125 [facility] Comment on above: Order Comment: Speci men Type: BLOOD SPECIMEN Performed By: #### Marin KATHIE, 40763-4 ####[facility] LABORATORYCLIA [id number] [address] [facility] POTASSIUM BLDon 06-02-2021 Potassium [Moles/Vol] 3.2 mmol/L Low 3.7-5.1 [facility] Comment on above: Order Comment: Speci men Type: BLOOD SPECIMEN Performed By: #### K 1 ####[facility] LABORATORYCLIA [id number] [address] [facility] Phosphate SerPl-mCncon 06-02 Phosphate [Mass/Vol] 2.1 mg/dL Low 2.7-4.8 [facility] Comment on above: Order Comment: Speci men Type: BLOOD SPECIMEN Performed By: #### 2 4321-2, 68631-1, 2777-1 ####[facility] LABORATORYCLIA [id number] [address] Vancomycin random [Mass/Vol] on 06-02-2021 Vancomycin [Mass/Vol] 18.8 ug/mL Normal 10.0-20.0 [facility] Comment on above: Order Comment: Speci men Type: BLOOD SPECIMEN Result Comment: Refe rence ranges and high/low indicator flags are provided as general guidelines only. The treating physician must determine appropriate target levels/dosing based on the specific clinical situation. Performed By: #### 4 091-5 ####[facility] LABORATORYCLIA [id number] [address] [place] ALLIED HEALTHon 06-01-2021 ALLIED HEALTH Normal [facility] ALLIED HEALTH Normal [facility] ALLIED HEALTH Normal [facility] ARTERIAL BLOOD GASESon 06-01 Base excess Calc (Bld) [Moles/Vol] 1 mmol/L Normal 0-2 [facility] Comment on above: Order Comment: Speci men Type: ARTERIAL BLOOD SPECIMEN Performed By: #### A LLBG ####[facility] LABORATORYCLIA [id number] [address] Body temperature 97.52 [degF] Normal [facility] Comment on above: Order Comment: Speci men Type: ARTERIAL BLOOD SPECIMEN Performed By: #### A LLBG ####[facility] LABORATORYCLIA [id number] [address] [facility] CALCIUM IONIZED, PH CORRECTED 1.13 mmol/L Normal 1.08-1.30 [facility] Comment on above: Order Comment: Speci men Type: ARTERIAL BLOOD SPECIMEN Performed By: #### A LLBG ####[facility] LABORATORYCLIA [id number] [address] [place] Calcium.ionized (BldV) [Mass/Vol] 1.12 mmol/L Normal 1.08-1.30 [facility] Comment on above: Order Comment: Speci men Type: ARTERIAL BLOOD SPECIMEN Performed By: #### A LLBG ####[facility]ATORYCLIA [id number] [address] Carboxyhemoglobin (BldA) [Mass fraction] 1.6 % Normal 0.0-2.0 [facility] Comment on above: Order Comment: Speci men Type: ARTERIAL BLOOD SPECIMEN Result Comment: Carb oxyhemoglobin Reference Range for Smokers: 2.0-8.0% Performed By: #### A LLBG ####[facility]ATORYCLIA [id number] [address] CO2 (Bld) [Partial pressure] 41 mm Hg Normal 36-46 [facility] Comment on above: Order Comment: Speci men Type: ARTERIAL BLOOD SPECIMEN Performed By: #### A LLBG ####[facility]ATORYCLIA [id number] [address] CO2 [Moles/Vol] 23.0 mmol/L Normal 22-28 [facility] Comment on above: Order Comment: Speci men Type: ARTERIAL BLOOD SPECIMEN Performed By: #### A LLBG ####[facility]ATORYCLIA [id number] [address] CO2 adjusted to patient's actual temperature (Bld) [Partial pressure] 40 mmHg Normal 36-46 [facility] Comment on above: Order Comment: Speci men Type: ARTERIAL BLOOD SPECIMEN Performed By: #### A LLBG ####[facility]ATORYCLIA [id number] [address] FIO2 40 % Normal [facility] Comment on above: Order Comment: Speci men Type: ARTERIAL BLOOD SPECIMEN Performed By: #### A LLBG ####[facility]ATORYCLIA [id number] [address] Glucose [Mass/Vol] 127 mg/dL High 60-105 [facility] Comment on above: Order Comment: Speci men Type: ARTERIAL BLOOD SPECIMEN Performed By: #### A LLBG ####[facility]ATORYCLIA [id number] [address] [place] HCO3 (Bld) [Moles/Vol] 25 mmol/L Normal 22-26 [facility] Comment on above: Order Comment: Speci men Type: ARTERIAL BLOOD SPECIMEN Performed By: #### A LLBG ####[facility]ATORYCLIA [id number] [address] [place] Hematocrit (Bld) [Volume fraction] 33.7 % Low 39.0-51.0 [facility] Comment on above: Order Comment: Speci men Type: ARTERIAL BLOOD SPECIMEN Performed By: #### A LLBG ####[facility]ORYCLIA [id number] [address] Hemoglobin (Bld) [Mass/Vol] 10.9 g/dL Low 13.0-17.0 [facility] Comment on above: Order Comment: Speci men Type: ARTERIAL BLOOD SPECIMEN Performed By: #### A LLBG ####[facility]ATORYCLIA [id number] [address] INHALED TIDAL VOLUME (ML) 500 Normal [facility] Comment on above: Order Comment: Speci men Type: ARTERIAL BLOOD SPECIMEN Performed By: #### A LLBG ####[facility]ATORYCLIA [id number] [address] INVASIVE VENTILATOR MODE PRVC=Pressure Regulated Volume Control Normal [facility] Comment on above: Order Comment: Speci men Type: ARTERIAL BLOOD SPECIMEN Performed By: #### A LLBG ####[facility]ATORYCLIA [id number] [address] Methemoglobin (Bld) [Mass fraction] % Normal 0.0-1.5 [facility] Comment on above: Order Comment: Speci men Type: ARTERIAL BLOOD SPECIMEN Performed By: #### A LLBG ####[facility]ATORYCLIA [id number] [address] O2 THERAPY Ventilator Normal [facility] Comment on above: Order Comment: Speci men Type: ARTERIAL BLOOD SPECIMEN Performed By: #### A LLBG ####[facility]ATORYCLIA [id number] [address] Oxygen (Bld) [Partial pressure] 64 mm Hg Low 85-95 [facility] Comment on above: Order Comment: Speci men Type: ARTERIAL BLOOD SPECIMEN Performed By: #### A LLBG ####[facility]ATORYCLIA [id number] [address] Oxygen adjusted to patient's actual temperature (Bld) [Partial pressure] 61.8 mmHg Low 85-95 [facility] Comment on above: Order Comment: Speci men Type: ARTERIAL BLOOD SPECIMEN Performed By: #### A LLBG ####[facility]ATORYCLIA [id number] [address] OXYGEN SATURATION, ARTERIAL 94 % Low 95-98 [facility] Comment on above: Order Comment: Speci men Type: ARTERIAL BLOOD SPECIMEN Performed By: #### A LLBG ####[facility]ORYCLIA [id number] [address] Oxyhemoglobin (BldA) [Mass fraction] 92 % Low 95-98 [facility] Comment on above: Order Comment: Speci men Type: ARTERIAL BLOOD SPECIMEN Performed By: #### A LLBG ####[facility]ATORYCLIA [id number] [address] PEEP/CPAP 5 cmH2O Normal [facility] Comment on above: Order Comment: Speci men Type: ARTERIAL BLOOD SPECIMEN Performed By: #### A LLBG ####[facility]ORYCLIA [id number] [address] pH (Bld) 7.40 [pH] Normal 7.35-7.45 [facility] Comment on above: Order Comment: Speci men Type: ARTERIAL BLOOD SPECIMEN Performed By: #### A LLBG ####[facility]ATORYCLIA [id number] [address] pH adjusted to patient's actual temperature (Bld) 7.41 Normal 7.35-7.45 [facility] Comment on above: Order Comment: Speci men Type: ARTERIAL BLOOD SPECIMEN Performed By: #### A LLBG ####[facility]ORYCLIA [id number] [address] [place] Potassium [Moles/Vol] 3.1 mmol/L Low 3.5-5.0 [facility] Comment on above: Order Comment: Speci men Type: ARTERIAL BLOOD SPECIMEN Performed By: #### A LLBG ####[facility]ORYCLIA [id number] [address] SET VENTILATOR RESPIRATORY RATE (BPM) 18 BPM Normal [facility] Comment on above: Order Comment: Speci men Type: ARTERIAL BLOOD SPECIMEN Performed By: #### A LLBG ####[facility]ORYCLIA [id number] [address] Sodium [Moles/Vol] 141 mmol/L Normal 136-144 [facility] Comment on above: Order Comment: Speci men Type: ARTERIAL BLOOD SPECIMEN Performed By: #### A LLBG ####[facility]ATORYCLIA [id number] [address] [place] BASE DEFICIT, ARTERIAL -1.0 mmol/L Normal -2-0 [facility] Comment on above: Order Comment: Speci men Type: ARTERIAL BLOOD SPECIMEN Performed By: #### A LLBG ####[facility]ORYCLIA [id number] [address] [place] Body temperature 98.24 [degF] Normal [facility] Comment on above: Order Comment: Speci men Type: ARTERIAL BLOOD SPECIMEN Performed By: #### A LLBG ####[facility]ORYCLIA [id number] [address] [place] CALCIUM IONIZED, PH CORRECTED 1.08 mmol/L Normal 1.08-1.30 [facility] Comment on above: Order Comment: Speci men Type: ARTERIAL BLOOD SPECIMEN Performed By: #### A LLBG ####[facility] LABORATORYCLIA [id number] [address] Calcium.ionized (BldV) [Mass/Vol] 1.15 mmol/L Normal 1.08-1.30 [facility] Comment on above: Order Comment: Speci men Type: ARTERIAL BLOOD SPECIMEN Performed By: #### A LLBG ####[facility]ORYCLIA [id number] [address] Carboxyhemoglobin (BldA) [Mass fraction] 1.4 % Normal 0.0-2.0 [facility] Comment on above: Order Comment: Speci men Type: ARTERIAL BLOOD SPECIMEN Result Comment: Carb oxyhemoglobin Reference Range for Smokers: 2.0-8.0% Performed By: #### A LLBG ####[facility]ORATORYCLIA [id number] [address] CO2 (Bld) [Partial pressure] 59 mm Hg High 36-46 [facility] Comment on above: Order Comment: Speci men Type: ARTERIAL BLOOD SPECIMEN Performed By: #### A LLBG ####[facility] LABORATORYCLIA [id number] [address] CO2 [Moles/Vol] 24.5 mmol/L Normal 22-28 [facility] Comment on above: Order Comment: Speci men Type: ARTERIAL BLOOD SPECIMEN Performed By: #### A LLBG ####[facility]ORYCLIA [id number] [address] CO2 adjusted to patient's actual temperature (Bld) [Partial pressure] 58 mmHg High 36-46 [facility] Comment on above: Order Comment: Speci men Type: ARTERIAL BLOOD SPECIMEN Performed By: #### A LLBG ####[facility]ORYCLIA [id number] [address] [place] FIO2 40 % Normal [facility] Comment on above: Order Comment: Speci men Type: ARTERIAL BLOOD SPECIMEN Performed By: #### A LLBG ####[facility]ORYCLIA [id number] [address] Glucose [Mass/Vol] 128 mg/dL High 60-105 [facility] Comment on above: Order Comment: Speci men Type: ARTERIAL BLOOD SPECIMEN Performed By: #### A LLBG ####[facility]ORYCLIA [id number] [address] [place] HCO3 (Bld) [Moles/Vol] 26 mmol/L Normal 22-26 [facility] Comment on above: Order Comment: Speci men Type: ARTERIAL BLOOD SPECIMEN Performed By: #### A LLBG ####[facility] LABORATORYCLIA [id number] [address] Hematocrit (Bld) [Volume fraction] 35.6 % Low 39.0-51.0 [facility] Comment on above: Order Comment: Speci men Type: ARTERIAL BLOOD SPECIMEN Performed By: #### A LLBG ####[facility] LABORATORYCLIA [id number] [address] [facility] Hemoglobin (Bld) [Mass/Vol] 11.5 g/dL Low 13.0-17.0 [facility] Comment on above: Order Comment: Speci men Type: ARTERIAL BLOOD SPECIMEN Performed By: #### A LLBG ####[facility] LABORATORYCLIA [id number] [address] INHALED TIDAL VOLUME (ML) 500 Normal [facility] Comment on above: Order Comment: Speci men Type: ARTERIAL BLOOD SPECIMEN Performed By: #### A LLBG ####[facility] LABORATORYCLIA [id number] [address] INVASIVE VENTILATOR MODE PRVC=Pressure Regulated Volume Control [facility] Comment on above: Order Comment: Speci men Type: ARTERIAL BLOOD SPECIMEN Performed By: #### A LLBG ####[facility]ATORYCLIA [id number] [place] [address] [place] Methemoglobin (Bld) [Mass fraction] % Normal 0.0-1.5 [facility] Comment on above: Order Comment: Speci men Type: ARTERIAL BLOOD SPECIMEN Performed By: #### A LLBG ####[facility]ORATORYCLIA [id number] [address] [place] O2 THERAPY Ventilator Normal [facility] Comment on above: Order Comment: Speci men Type: ARTERIAL BLOOD SPECIMEN Performed By: #### A LLBG ####[facility]ATORYCLIA [id number] [address] [place] Oxygen (Bld) [Partial pressure] 88 mm Hg Normal 85-95 [facility] Comment on above: Order Comment: Speci men Type: ARTERIAL BLOOD SPECIMEN Performed By: #### A LLBG ####[facility]ORYCLIA [id number] [address] [facility] Oxygen adjusted to patient's actual temperature (Bld) [Partial pressure] 86.5 mmHg Normal 85-95 [facility] Comment on above: Order Comment: Speci men Type: ARTERIAL BLOOD SPECIMEN Performed By: #### A LLBG ####[facility]ORYCLIA [id number] [address] [place] OXYGEN SATURATION, ARTERIAL 95 % Normal 95-98 [facility] Comment on above: Order Comment: Speci men Type: ARTERIAL BLOOD SPECIMEN Performed By: #### A LLBG ####[facility]ORYCLIA [id number] [address] [place] Oxyhemoglobin (BldA) [Mass fraction] 93 % Low 95-98 [facility] Comment on above: Order Comment: Speci men Type: ARTERIAL BLOOD SPECIMEN Performed By: #### A LLBG ####[facility]ORYCLIA [id number] [address] [place] PEEP/CPAP 5 cmH2O Normal [facility] Comment on above: Order Comment: Speci men Type: ARTERIAL BLOOD SPECIMEN Performed By: #### A LLBG ####[facility]ORYCLIA [id number] [address] [facility] pH (Bld) 7.27 [pH] Low 7.35-7.45 [facility] Comment on above: Order Comment: Speci men Type: ARTERIAL BLOOD SPECIMEN Performed By: #### A LLBG ####[facility]ORYCLIA [id number] [address] pH adjusted to patient's actual temperature (Bld) 7.28 Low 7.35-7.45 [facility] Comment on above: Order Comment: Speci men Type: ARTERIAL BLOOD SPECIMEN Performed By: #### A LLBG ####[facility] LABORATORYCLIA [id number] [address] Potassium [Moles/Vol] 3.3 mmol/L Low 3.5-5.0 [facility] Comment on above: Order Comment: Speci men Type: ARTERIAL BLOOD SPECIMEN Performed By: #### A LLBG ####[facility] LABORATORYCLIA [id number] [address] SET VENTILATOR RESPIRATORY RATE (BPM) 14 BPM Normal [facility] Comment on above: Order Comment: Speci men Type: ARTERIAL BLOOD SPECIMEN Performed By: #### A LLBG ####[facility]ORATORYCLIA [id number] [address] Sodium [Moles/Vol] 141 mmol/L Normal 136-144 [facility] Comment on above: Order Comment: Speci men Type: ARTERIAL BLOOD SPECIMEN Performed By: #### A LLBG ####[facility]ATORYCLIA [id number] [address] [place] Bacteria CSF Culton 06-01-19 22 Bacteria identified Cx Nom (CSF) CULTURE, CSF: No growth 14 days GRAM STAIN: No organisms seen Rare Polymorphonuclear leukocytes Moderate Red Blood Cells Gram stain performed on cytospun specimen. Normal [facility] Comment on above: Performed By: #### 6 06-4 ####[facility] LABORATORYCLIA [id number] [address] Bacteria Spec Resp Culton Bacteria identified Respiratory culture Nom (Unsp spec) CULTURE, RESPIRATORY: No growth 2 days GRAM STAIN: No organisms seen No Polymorphonuclear Leukocytes Normal [facility] Comment on above: Performed By: #### 3 2355-0 ####[facility]ATORYCLIA [id number] [address] [facility] Basic metabolic 2000 panelon 06-01-2021 Anion gap [Moles/Vol] 8 mmol/L Low 9-18 [facility] Comment on above: Order Comment: Speci men Type: BLOOD SPECIMEN Performed By: #### 2 4321-2, , 2776-05 ####[facility]ATORYCLIA [id number] [address] Calcium [Mass/Vol] 7.8 mg/dL Low 8.5-10.2 [facility] Comment on above: Order Comment: Speci men Type: BLOOD SPECIMEN Performed By: #### 2 4321-2, , 2776-05 ####[facility]ATORYCLIA [id number] [address] STATES [facility] Chloride [Moles/Vol] 109 mmol/L High 97-105 [facility] Comment on above: Order Comment: Speci men Type: BLOOD SPECIMEN Performed By: #### 2 4321-2, , 2776-05 ####[facility]ATORYCLIA [id number] [address] [place] CO2 [Moles/Vol] 26 mmol/L Normal 22-30 [facility] Comment on above: Order Comment: Speci men Type: BLOOD SPECIMEN Performed By: #### 2 4321-2, , 2776-05 ####[facility]ORYCLIA [id number] [address] [place] Creatinine [Mass/Vol] 0.82 mg/dL Normal 0.73-1.22 [facility] Comment on above: Order Comment: Speci men Type: BLOOD SPECIMEN Performed By: #### 2 4321-2, , 2776-05 ####[facility] LABORATORYCLIA [id number] [place] [address] [place] GFR/1.73 sq M.predicted MDRD (S/P/Bld) [Vol rate/Area] mL/min/{1.73_m2} Normal [facility] Comment on above: Order Comment: Speci [...] Performed By: #### 2 4321-2, , 2776-05 ####[facility] [id number] [place] [address] [place] Glucose [Mass/Vol] 105 mg/dL High 74-99 [facility] Comment on above: Order Comment: Speci men Type: BLOOD SPECIMEN Result Comment: The [place] [employer] Association (ADA) provides guidance for cutoff [...] Standards of Medical Care in Diabetes 2016, [place] [employer]. Diabetes Care. 2016.39(Suppl 1). Performed By: #### 2 4321-2, 93021-3, 2776-05 ####[facility] LABORATORYCLIA [id number] [place], [place] [id number] [place] [address] [facility] Potassium [Moles/Vol] 3.8 mmol/L Normal 3.7-5.1 [facility] Comment on above: Order Comment: Speci men Type: BLOOD SPECIMEN Performed By: #### 2 4321-2, 99696-3, 2776-1 ####[facility] LABORATORYCLIA [id number] [place], [place] [address] [place] [address] STATES [facility] Sodium [Moles/Vol] 143 mmol/L Normal 136-144 [facility] Comment on above: Order Comment: Speci men Type: BLOOD SPECIMEN Performed By: #### 2 4321-2, , 2776-05 ####[facility] LABORATORYCLIA [id number] [address] Urea nitrogen [Mass/Vol] 15 mg/dL Normal 9-24 [facility] Comment on above: Order Comment: Speci men Type: BLOOD SPECIMEN Performed By: #### 2 4321-2, , 2776-05 ####[facility] LABORATORYCLIA [id number] [address] CBC panel Auto (Bld)on 06-01 Erythrocyte distribution width (RBC) [Ratio] 15.4 % High 11.5-15.0 [facility] Comment on above: Order Comment: Speci men Type: BLOOD SPECIMEN Performed By: #### 5 8410-2 ####[facility] LABORATORYCLIA [id number] [address] Hematocrit (Bld) [Volume fraction] 38.4 % Low 39.0-51.0 [facility] Comment on above: Order Comment: Speci men Type: BLOOD SPECIMEN Performed By: #### 5 8410-2 ####[facility] LABORATORYCLIA [id number] [address] [facility] Hemoglobin (Bld) [Mass/Vol] 11.1 g/dL Low 13.0-17.0 [facility] Comment on above: Order Comment: Speci men Type: BLOOD SPECIMEN Performed By: #### 5 8410-2 ####[facility] LABORATORYCLIA [id number] [address] MCH (RBC) [Entitic mass] 26.9 pg Normal 26.0-34.0 [facility] Comment on above: Order Comment: Speci men Type: BLOOD SPECIMEN Performed By: #### 5 8410-2 ####[facility] LABORATORYCLIA [id number] [address] MCHC (RBC) [Mass/Vol] 28.9 g/dL Low 30.5-36.0 [facility] Comment on above: Order Comment: Speci men Type: BLOOD SPECIMEN Performed By: #### 5 8410-2 ####[facility] LABORATORYCLIA [id number] [address] MCV (RBC) [Entitic vol] 93.2 fL Normal 80.0-100.0 [facility] Comment on above: Order Comment: Speci men Type: BLOOD SPECIMEN Performed By: #### 5 8410-2 ####[facility] LABORATORYCLIA [id number] [address] Nucleated RBC (Bld) [#/Vol] 10*3/uL Normal <0.01 [facility] Comment on above: Order Comment: Speci men Type: BLOOD SPECIMEN Performed By: #### 5 8410-2 ####[facility] LABORATORYCLIA [id number] [address] Platelet mean volume (Bld) [Entitic vol] 10.2 fL Normal 9.0-12.7 [facility] Comment on above: Order Comment: Speci men Type: BLOOD SPECIMEN Performed By: #### 5 8410-2 ####[facility] LABORATORYCLIA [id number] [address] Platelets (Bld) [#/Vol] 231 10*3/uL Normal 150-400 [facility] Comment on above: Order Comment: Speci men Type: BLOOD SPECIMEN Performed By: #### 5 8410-2 ####[facility]ATORYCLIA [id number] [address] [facility] RBC (Bld) [#/Vol] 4.12 10*6/uL Low 4.20-6.00 [facility] Comment on above: Order Comment: Speci men Type: BLOOD SPECIMEN Performed By: #### 5 8410-2 ####[facility]ORYCLIA [id number] [address] WBC (Bld) [#/Vol] 10.99 10*3/uL Normal 3.70-11.00 [facility] Comment on above: Order Comment: Speci men Type: BLOOD SPECIMEN Performed By: #### 5 8410-2 ####[facility] LABORATORYCLIA [id number] [address] CONSULT PROGon 06-01-2021 CONSULT PROG Normal [facility] CSF MANUAL DIFFon 06-01-2021 DIF TTL, CSF 100 cells counted Normal [facility] Comment on above: Order Comment: Speci men Type: CEREBROSPINAL FLUID Performed By: #### 3 4563-7, [id number] ####[facility]ORYCLIA [id number] [address] LYMPH%, CSF 11 % Low 50-90 [facility] Comment on above: Order Comment: Speci men Type: CEREBROSPINAL FLUID Performed By: #### 3 4563-7, [id number] ####[facility]ORYCLIA [id number] [address] [place] MONO%, CSF 10 % Normal 10-50 [facility] Comment on above: Order Comment: Speci men Type: CEREBROSPINAL FLUID Performed By: #### 3 4563-7, [id number] ####[facility]ORYCLIA [id number] [address] [place] NEUT%, CSF 79 % High 0-3 [facility] Comment on above: Order Comment: Speci men Type: CEREBROSPINAL FLUID Performed By: #### 3 4563-7, [id number] ####[facility] LABORATORYCLIA [id number] [address] BRAIN WO IVCONon 06-01-19 CT BRAIN WO IVCON Normal [facility] Cell count panel (CSF)on Clarity (CSF) Clear Normal Clear [facility] Comment on above: Order Comment: Speci men Type: CEREBROSPINAL FLUID Performed By: #### 3 4563-7, [id number] ####[facility]ORYCLIA [id number] [address] Clarity (Unsp spec) Not Indicated Normal Clear [facility] Comment on above: Order Comment: Speci men Type: CEREBROSPINAL FLUID Performed By: #### 3 4563-7, [id number] ####[facility] LABORATORYCLIA [id number] [address] Color (CSF) Colorless Normal Colorless [facility] Comment on above: Order Comment: Speci men Type: CEREBROSPINAL FLUID Performed By: #### 3 4563-7, [id number] ####[facility] LABORATORYCLIA [id number] [address] Color (Spun CSF) Not Indicated Normal Colorless [facility] Comment on above: Order Comment: Speci men Type: CEREBROSPINAL FLUID Performed By: #### 3 4563-7, [id number] ####[facility]ORYCLIA [id number] [address] CSF TUBE NUMBER [employer] Normal [facility] Comment on above: Order Comment: Speci men Type: CEREBROSPINAL FLUID Performed By: #### 3 4563-7, [id number] ####[facility]ORYCLIA [id number] [address] RBC Manual cnt (CSF) [#/Vol] 171 cells/uL High 0-5 [facility] Comment on above: Order Comment: Speci men Type: CEREBROSPINAL FLUID Performed By: #### 3 4563-7, [id number] ####[facility] LABORATORYCLIA [id number] [place] [address] [place] WBC Manual cnt (CSF) [#/Vol] 5 cells/uL Normal 0-5 [facility] Comment on above: Order Comment: Speci men Type: CEREBROSPINAL FLUID Performed By: #### 3 4563-7, [id number] ####[facility] LABORATORYCLIA [id number] [place] [id number] [place] FUNGAL CULTUREon 06-01-2021 FUNGAL CULTURE CULTURE, FUNGAL: No Fungus isolated after 28 days Normal [facility] Comment on above: Performed By: #### F CUL ####[facility] LABORATORYCLIA [id number] [place] [address] [place] Glucose CSF-mCncon 2 Glucose (CSF) [Mass/Vol] 78 mg/dL High 40-70 [facility] Comment on above: Order Comment: Speci men Type: CEREBROSPINAL FLUID Result Comment: Lumb ar CSF glucose values of healthy patients are approximately 60% of the plasma values and must always be compared with a concurrently measured plasma value for adequate clinical interpretation.References: 1. Glucose HK (GLUC3) [package insert V 12.0 [place]]. [employer], [place], [place]. September 2015. 2. Michelle Moore, Loki HGarfield (2015). Chapter 7: Glucose and Lactate. FGarfield Alcocer al.(eds.), Cerebrospinal Fluid in Clinical Neurology. [place]: [employer]. Performed By: #### 2 342-4, 2880-3 ####[facility] LABORATORYCLIA [id number] [place] [id number] [place] HERPES SIMPLEX CSFon 022 HERPES SIMPLEX CSF HSV PCR SPEC SOURCE: Cerebrospinal Fluid HSV-1: Negative for Herpes Simplex Virus Type 1 by PCR HSV-2: Negative for Herpes Simplex Virus Type 2 by PCR Normal [facility] Comment on above: Performed By: #### H [facility] ####[facility] REFERENCE LABCLIA [id number] [id number] [address] [place] Lactate (Bld) [Moles/Vol]on 06-01-2021 Lactate [Moles/Vol] 0.5 mmol/L Normal 0.5-2.2 [facility] Comment on above: Order Comment: Speci men Type: BLOOD SPECIMEN Performed By: #### 3 2693-4 ####[facility] LABORATORYCLIA [id number] [address] MENINGITIS ENCEPHALITIS BIOF IREon 06-01-2021 MENINGITIS ENCEPHALITIS BIOFIRE Negative Normal [facility] Comment on above: Order Comment: Speci men Type: CEREBROSPINAL FLUID Performed By: #### M GEBF ####[facility] CENTERCLIA [id number], [place] [address] Magnesium SerPl-mCncon 06-01 Magnesium [Mass/Vol] 2.2 mg/dL Normal 1.7-2.3 [facility] Comment on above: Order Comment: Speci men Type: BLOOD SPECIMEN Performed By: #### 2 4321-2, 68580-2, 2777-1 ####[facility] LABORATORYCLIA [id number] [address] Microorganism Spec Culton Microorganism identified Cx Nom (Unsp spec) CULTURE, AFB: No Acid Fast Bacilli isolated after 42 days AFB STAIN: No acid fast bacilli seen by flurochrome stain Normal [facility] Comment on above: Performed By: #### 1 1475-1 ####[facility] LABORATORYCLIA [id number] [address] PROCALCITONIN (LAB)on 2021 Procalcitonin [Mass/Vol] 0.08 ng/mL Normal <0.09 [facility] Comment on above: Order Comment: Speci men Type: BLOOD SPECIMEN Result Comment: For a guided interpretation of test results, please visit the Change in Procalcitonin Calculator, [email or web address]. Performed By: #### P ROCAL ####[facility] LABORATORYCLIA [id number] [address] [place] Phosphate SerPl-ncon 06-01 Phosphate [Mass/Vol] 3.5 mg/dL Normal 2.7-4.8 [facility] Comment on above: Order Comment: Speci men Type: BLOOD SPECIMEN Performed By: #### 2 4321-2, 73646-5, 2777-1 ####[facility] LABORATORYCLIA [id number] [address] [place] Prot CSF-ncon 06-01-2021 Protein (CSF) [Mass/Vol] 52 mg/dL High 15-45 [facility] Comment on above: Order Comment: Speci men Type: CEREBROSPINAL FLUID Performed By: #### 2 342-4, 2880-3 ####[facility] LABORATORYCLIA [id number] [address] Vancomycin random [Mass/Vol] on 06-01-2021 Vancomycin [Mass/Vol] 14.6 ug/mL Normal 10.0-20.0 [facility] Comment on above: Order Comment: Speci men Type: BLOOD SPECIMEN Result Comment: Refe rence ranges and high/low indicator flags are provided as general guidelines only. The treating physician must determine appropriate target levels/dosing based on the specific clinical situation. Performed By: #### 4 091-5 ####[facility] LABORATORYCLIA [id number] [address] XR CHEST 1V FRONTALon 2021 XR CHEST 1V FRONTAL Normal [facility] XR CHEST 1V FRONTAL Normal [facility] XR NECK SOFT TISSUE 2V AP/LA Ton 06-01-2021 XR NECK SOFT TISSUE 2V AP/LAT Normal [facility] XR SKULL 2V AP/LATon 022 XR SKULL 2V AP/LAT Normal [facility] ALLIED HEALTHon 05-31-2021 ALLIED HEALTH HNO ID: [id number] Author: Christina Lynne RT(R) Service: Radiology Author Type: Technologist Type: Allied Health Filed: 05/31/2021 5:48 PM Note Text: MRI tomorrow per RN. Normal [facility] ALLIED HEALTH Normal [facility] ALLIED HEALTH Normal [facility] ALLIED HEALTH Normal [facility] ANES POSTPROC EVALon 022 ANES POSTPROC EVAL Normal [facility] ANES PRE-OPon 05-31-2021 ANES PRE-OP Normal [facility] BRIEF OP NOTon 05-31-2021 BRIEF OP NOT Normal [facility] Bacteria Bld Culton 05-31-19 22 Bacteria identified Cx Nom (Bld) CULTURE, BLOOD: No growth 5 days Normal [facility] Comment on above: Performed By: #### 6 00-7 ####[facility] LABORATORYCLIA [id number] [place] [address] [place] Bacteria CSF Culton 05-31-19 22 Bacteria identified Cx Nom (CSF) CULTURE, CSF: No growth 14 days GRAM STAIN: No organisms seen Rare Polymorphonuclear leukocytes Rare Red Blood Cells Gram stain performed on cytospun specimen. Normal [facility] Comment on above: Performed By: #### 6 06-4 ####[facility] LABORATORYCLIA [id number] [place] [address] [place] Basic metabolic 2000 panelon 05-31-2021 Anion gap [Moles/Vol] 9 mmol/L Normal 9-18 [facility] Comment on above: Order Comment: Speci men Type: BLOOD SPECIMEN Performed By: #### 2 777-1, 34302-0, ####[facility] LABORATORYCLIA [id number] [place] [address] [place] Calcium [Mass/Vol] 8.2 mg/dL Low 8.5-10.2 [facility] Comment on above: Order Comment: Speci men Type: BLOOD SPECIMEN Performed By: #### 2 777-1, 66105-2, ####[facility] LABORATORYCLIA [id number] [place] [address] [place] Chloride [Moles/Vol] 110 mmol/L High 97-105 [facility] Comment on above: Order Comment: Speci men Type: BLOOD SPECIMEN Performed By: #### 2 777-1, 21904-3, ####[facility] LABORATORYCLIA [id number] [place] [address] [place] CO2 [Moles/Vol] 27 mmol/L Normal 22-30 [facility] Comment on above: Order Comment: Speci men Type: BLOOD SPECIMEN Performed By: #### 2 777-1, , ####[facility] LABORATORYCLIA [id number] [address] [place] Creatinine [Mass/Vol] 0.85 mg/dL Normal 0.73-1.22 [facility] Comment on above: Order Comment: Speci men Type: BLOOD SPECIMEN Performed By: #### 2 777-1, , ####[facility] LABORATORYCLIA [id number] [address] [place] GFR/1.73 sq M.predicted MDRD (S/P/Bld) [Vol rate/Area] mL/min/{1.73_m2} Normal [facility] Comment on above: Order Comment: Speci [...] GFR. Performed By: #### 2 777-1, , ####[facility] LABORATORYCLIA [id number] [address] [place] Glucose [Mass/Vol] 111 mg/dL High 74-99 [facility] Comment on above: Order Comment: Speci men Type: BLOOD SPECIMEN Result Comment: The [place] Diabetes Association (ADA) provides guidance for cutoff [...] Standards of Medical Care in Diabetes 2016, [place] [employer] Association. Diabetes Care. 2016.39(Suppl 1). Performed By: #### 2 777-1, , ####[facility] LABORATORYCLIA [id number] [address] [place] Potassium [Moles/Vol] 3.7 mmol/L Normal 3.7-5.1 [facility] Comment on above: Order Comment: Speci men Type: BLOOD SPECIMEN Performed By: #### 2 777-1, , ####[facility] LABORATORYCLIA [id number] [address] STATES OF [facility] Sodium [Moles/Vol] 146 mmol/L High 136-144 [facility] Comment on above: Order Comment: Speci men Type: BLOOD SPECIMEN Performed By: #### 2 777-1, , ####[facility] LABORATORYCLIA [id number] [address] [place] Urea nitrogen [Mass/Vol] 16 mg/dL Normal 9-24 [facility] Comment on above: Order Comment: Speci men Type: BLOOD SPECIMEN Performed By: #### 2 777-1, , ####[facility] LABORATORYCLIA [id number] [address] [place] CASE MGT INIT ASSESon 2021 CASE MGT INIT ASSES Normal [facility] CBC W Auto Differential pane l (Bld)on 05-31-2021 Basophils (Bld) [#/Vol] 0.04 10*3/uL Normal <0.11 [facility] Comment on above: Order Comment: Speci men Type: BLOOD SPECIMEN Performed By: #### 5 7021-8 ####[facility]ORATORYCLIA [id number] [address] Basophils/100 WBC (Bld) 0.5 % Normal [facility] Comment on above: Order Comment: Speci men Type: BLOOD SPECIMEN Performed By: #### 5 7021-8 ####[facility]ORYCLIA [id number] [address] Differential cell count method Nom (Bld) Auto Normal [facility] Comment on above: Order Comment: Speci men Type: BLOOD SPECIMEN Performed By: #### 5 7021-8 ####[facility]ATORYCLIA [id number] [address] Eosinophils (Bld) [#/Vol] 0.27 10*3/uL Normal <0.46 [facility] Comment on above: Order Comment: Speci men Type: BLOOD SPECIMEN Performed By: #### 5 7021-8 ####[facility]ORYCLIA [id number] [address] Eosinophils/100 WBC (Bld) 3.3 % Normal [facility] Comment on above: Order Comment: Speci men Type: BLOOD SPECIMEN Performed By: #### 5 7021-8 ####[facility]ORYCLIA [id number] [address] Erythrocyte distribution width (RBC) [Ratio] 15.4 % High 11.5-15.0 [facility] Comment on above: Order Comment: Speci men Type: BLOOD SPECIMEN Performed By: #### 5 7021-8 ####[facility]ORYCLIA [id number] [address] [place] Hematocrit (Bld) [Volume fraction] 37.9 % Low 39.0-51.0 [facility] Comment on above: Order Comment: Speci men Type: BLOOD SPECIMEN Performed By: #### 5 7021-8 ####[facility] LABORATORYCLIA [id number] [address] Hemoglobin (Bld) [Mass/Vol] 11.5 g/dL Low 13.0-17.0 [facility] Comment on above: Order Comment: Speci men Type: BLOOD SPECIMEN Performed By: #### 5 7021-8 ####[facility] LABORATORYCLIA [id number] [address] IMMATURE GRAN % 0.4 % Normal [facility] Comment on above: Order Comment: Speci men Type: BLOOD SPECIMEN Performed By: #### 5 7021-8 ####[facility] LABORATORYCLIA [id number] [address] IMMATURE GRAN ABS 0.03 k/uL Normal <0.10 [facility] Comment on above: Order Comment: Speci men Type: BLOOD SPECIMEN Performed By: #### 5 7021-8 ####[facility] LABORATORYCLIA [id number] [address] Lymphocytes (Bld) [#/Vol] 1.90 10*3/uL Normal 1.00-4.00 [facility] Comment on above: Order Comment: Speci men Type: BLOOD SPECIMEN Performed By: #### 5 7021-8 ####[facility] LABORATORYCLIA [id number] [address] Lymphocytes/100 WBC (Bld) 23.0 % Normal [facility] Comment on above: Order Comment: Speci men Type: BLOOD SPECIMEN Performed By: #### 5 7021-8 ####[facility]ORYCLIA [id number] [address] MCH (RBC) [Entitic mass] 28.0 pg Normal 26.0-34.0 [facility] Comment on above: Order Comment: Speci men Type: BLOOD SPECIMEN Performed By: #### 5 7021-8 ####[facility]ORYCLIA [id number] [address] MCHC (RBC) [Mass/Vol] 30.3 g/dL Low 30.5-36.0 [facility] Comment on above: Order Comment: Speci men Type: BLOOD SPECIMEN Performed By: #### 5 7021-8 ####[facility]ORYCLIA [id number] [address] MCV (RBC) [Entitic vol] 92.4 fL Normal 80.0-100.0 [facility] Comment on above: Order Comment: Speci men Type: BLOOD SPECIMEN Performed By: #### 5 7021-8 ####[facility]ORYCLIA [id number] [address] Monocytes (Bld) [#/Vol] 0.60 10*3/uL Normal <0.87 [facility] Comment on above: Order Comment: Speci men Type: BLOOD SPECIMEN Performed By: #### 5 7021-8 ####[facility] LABORATORYCLIA [id number] [address] Monocytes/100 WBC (Bld) 7.3 % Normal [facility] Comment on above: Order Comment: Speci men Type: BLOOD SPECIMEN Performed By: #### 5 7021-8 ####[facility]ORYCLIA [id number] [address] Neutrophils (Bld) [#/Vol] 5.41 10*3/uL Normal 1.45-7.50 [facility] Comment on above: Order Comment: Speci men Type: BLOOD SPECIMEN Performed By: #### 5 7021-8 ####[facility]ORYCLIA [id number] [address] Neutrophils/100 WBC (Bld) 65.5 % Normal [facility] Comment on above: Order Comment: Speci men Type: BLOOD SPECIMEN Performed By: #### 5 7021-8 ####[facility]ORYCLIA [id number] [address] Nucleated RBC (Bld) [#/Vol] 10*3/uL Normal <0.01 [facility] Comment on above: Order Comment: Speci men Type: BLOOD SPECIMEN Performed By: #### 5 7021-8 ####[facility] LABORATORYCLIA [id number] [address] Nucleated RBC/100 WBC (Bld) [Ratio] 0.0 /100 WBC Normal 0.0 [facility] Comment on above: Order Comment: Speci men Type: BLOOD SPECIMEN Performed By: #### 5 7021-8 ####[facility] LABORATORYCLIA [id number] [address] Platelet mean volume (Bld) [Entitic vol] 9.8 fL Normal 9.0-12.7 [facility] Comment on above: Order Comment: Speci men Type: BLOOD SPECIMEN Performed By: #### 5 7021-8 ####[facility] LABORATORYCLIA [id number] [address] [facility] Platelets (Bld) [#/Vol] 251 10*3/uL Normal 150-400 [facility] Comment on above: Order Comment: Speci men Type: BLOOD SPECIMEN Performed By: #### 5 7021-8 ####[facility] LABORATORYCLIA [id number] [address] [facility] RBC (Bld) [#/Vol] 4.10 10*6/uL Low 4.20-6.00 [facility] Comment on above: Order Comment: Speci men Type: BLOOD SPECIMEN Performed By: #### 5 7021-8 ####[facility] LABORATORYCLIA [id number] [address] WBC (Bld) [#/Vol] 8.25 10*3/uL Normal 3.70-11.00 [facility] Comment on above: Order Comment: Speci men Type: BLOOD SPECIMEN Performed By: #### 5 7021-8 ####[facility]ORATORYCLIA [id number] [address] [place] CONSULTon 05-31-2021 CONSULT Normal [facility] CONSULT Normal [facility] CONSULT Normal [facility] CT BRAIN WO IVCONon 05-31-[address] BRAIN WO IVCON Normal [facility] CT BRAIN WO IVCON Normal [facility] CT CHEST WO IVCONon 05-31-19 CT CHEST WO IVCON Normal [facility] Cortis SerPl-mCncon 05-31-19 Cortisol [Mass/Vol] 31.0 ug/dL High AM: 5.3-22.5, PM: 3.4-16.8 [facility] Comment on above: Order Comment: Speci men Type: BLOOD SPECIMEN Result Comment: Prov ided reference range is from 6-10 AM sample collection time.Cortisol Reference Range: 6-10 AM = 4.8-19.5 ug/dL, 4-8 PM = 2.5-11.9 ug/dL Performed By: #### 2 143-6, 3016-3 ####[facility] LABORATORYCLIA [id number] [address] [place] Cryptoc Ag Spec Ql LAon 05-08 Cryptococcus sp Ag LA Ql (Unsp spec) Negative Normal [facility] Comment on above: Performed By: #### 4 3228-6 ####[facility] LABORATORYCLIA [id number] [place] [address] [place] HISTORY PHYSICALon HISTORY PHYSICAL Normal [facility] Magnesium SerPl-mCncon 05-31 Magnesium [Mass/Vol] 2.2 mg/dL Normal 1.7-2.3 [facility] Comment on above: Order Comment: Speci men Type: BLOOD SPECIMEN Performed By: #### 2 777-1, 50113-2, 60471-8 ####[facility] LABORATORYCLIA [id number] [place] [address] [place] NURSING PROGon 05-31-2021 NURSING PROG Normal [facility] NUTRITIONon 05-31-2021 NUTRITION Normal [facility] OPERATIVE NOon 05-31-2021 OPERATIVE NO Normal [facility] Phosphate SerPl-mCncon 05-31 Phosphate [Mass/Vol] 3.3 mg/dL Normal 2.7-4.8 [facility] Comment on above: Order Comment: Speci men Type: BLOOD SPECIMEN Performed By: #### 2 777-1, 39429-5, 03357-2 ####[facility] LABORATORYCLIA [id number] [address] STAPH AUREUS PCRon S. aureus and MRSA panel MEGAN+probe (Nose) Normal Negative [facility] Comment on above: Order Comment: Speci men Type: SWAB OF INTERNAL NOSE Result Comment: Nega tive for Staphylococcus aureus by PCR.Negative for MRSA by PCR Performed By: #### S APCR ####[facility] LABORATORYCLIA [id number] [address] STATES [facility] TSH SerPl-aCncon 05-31-2021 TSH Qn 0.829 m[IU]/L Normal 0.270-4.200 [facility] Comment on above: Order Comment: Speci men Type: BLOOD SPECIMEN Performed By: #### 2 143-6, 3016-3 ####[facility] LABORATORYCLIA [id number] [address] XR CHEST 1V FRONTALon 2021 XR CHEST 1V FRONTAL Normal [facility] XR CHEST 1V FRONTAL Normal [facility] Blood Cultureon 05-30-2021 Bacteria identified Cx Nom (Bld) Culture Result - No growth 5 days Normal [facility] Comment on above: Performed By: #### C AD #### [facility] [address] [place] [address] [facility] [address] [place], [place] [address] Bacteria identified Cx Nom (Bld) Sp. Request/Comment: - 8.2MLS Culture Result - No growth 5 days Normal [facility] Comment on above: Performed By: #### C AD #### [facility] [address] [place] [address] [facility] [address] [place], [place] [address] C-Reactive Proteinon 022 C-Reactive Protein 1.7 mg/dL High <0.9 [facility] Comment on above: Performed By: #### C RP ####[facility] [id number] [place] [phone] CNDSon 05-30-2021 CNDS HNO ID: [id number] Author: Columba Carroll PA-C Service: Hospital Medicine Author Type: Physician Carpenter Supervisor [employer] Type: Discharge Summary Filed: 05/30/2021 12:49 PM [...] Neurology Dr. Mendoza Treatment Team: Attending Provider: Ayaka Menjivar MD Physician Carpenter Supervisor [employer]: Columba Carroll PA-C Consulting: Lilo Mendoza MD [...] consulted. 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 Transfer to [facility] requested. Sepsis lactate was 1.3. ABG showed pO2 67.8, placed patient on 2L NC.Follow B1, B12, and RPR pending. 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 LABS AND PROCEDURES PENDING [...] intravenously q 1 (more content not included)... [facility] CONSULTon 05-30-2021 CONSULT HNO ID: [id number] Author: Juan Carlos Mckenzie MD Service: Infectious [...] vertebrae with counting from the craniocervical junction. 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 CT CERVICAL SPINE WO (more content not included)... Normal [facility] CONSULT HNO ID: [id number] Author: Lilo Mendoza MD Service: Neurology General Author Type: Physician Type: Consults Filed: 05/30/2021 10:56 AM Note Text: [facility] TeleNeurology Consult Note Patient seen using Teleneurology Services. Recommendations are placed in the chart. Please review. 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 , Authorizing Provider Tosha Tanase Medication methylPREDNISolone (MEDROL, JADYN,) 4 mg tablet, Sig take as instructed on package insert, Start Date 10/09/12, End Date , Taking? , Authorizing Provider Tosha Tanase Medication aspirin 81 mg chewable tablet, Sig [...] Reflexes Right Lef (more content not included)... 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 Age: [age] year old Allergies: ALLERGIES Allergen Reactions - Alcohol Rash, Hives, Other: See Comments Chest pain,red face,hot. - Latex Rash Last 3 Encounter Wt Readings: Date: Wt: 05/29/2021 123.7 kg (272 lb 11.3 oz) 03/19/2020 120.8 kg (266 lb 6.4 oz) 01/30/2020 121.7 kg (268 lb 3.2 oz) Last 1 Encounter Ht Readings: Date: Ht: 12/17/2019 175.3 cm (5' 9") CrCl: 105.4 mL/min (adjusted BW) Temp (24hrs), [...] No results found for: IMANI Gutierres [facility] Normal [facility] Creatinineon 05-30-2021 Creatinine [Mass/Vol] 0.86 mg/dL Normal 0.73-1.22 [facility] Comment on above: Performed By: #### C RET1 ####[facility] Frwypcbbok2881 [phone] eGFR- Amer. >60 [facility] Comment on above: Performed By: #### C RET1 ####[facility] Vbcckrnrzm0469 [phone] eGFR-All Other Races >60 Normal [facility] Comment on above: Result Comment: eGFR (Estimated [...] at [email or web address]. Performed By: #### C RET1 ####[facility] [address] [place], [place] [phone] Crypto Antigen Deton 022 Crypto Antigen Det Sp. Request/Comment: - SST Test Result - Duplicate request Account Credited [facility] Comment on above: Performed By: #### C AD #### [facility] [address] [place] [address] [place] [address] Crypto Antigen Det Sp. Request/Comment: - SST Test Result - Cryptococcal antigen detection result: Negative By latex agglutination [facility] Comment on above: Performed By: #### C AD #### [facility] [address] [place] [address] [place] [address] ED NOTEon 05-30-2021 ED NOTE HNO ID: [id number] Author: Aletha Lopez RN Service: ? Author Type: Registered Nurse Type: ED Notes Filed: 05/29/2021 11:16 PM Note Text: Patient changed for incontinent urine, labs redrawn and sent. Patient aware of plan to be admitted and agrees with plan [facility] HISTORY PHYSICALon 2 HISTORY PHYSICAL Normal [facility] HISTORY PHYSICAL HNO ID: [id number] Author: Hermes Roca MD Service: Hospital Medicine Author Type: Physician Type: HANDP Filed: 05/30/2021 1:03 AM Note Text: DEPARTMENT OF HOSPITAL MEDICINE HISTORY AND PHYSICAL EXAM SERVICE DATE: 05/29/2021 SERVICE TIME: 11:18 PM Primary Care Physician: Mateus Burris MD NIGHT AND WEEKEND COVERAGE: Please page [phone] until 7:30am this morning. After 7:30am please check the treatment team banner and page the appropriate service. 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 Normal [facility] Magnesium SerPl-mCncon 05-30 Magnesium [Mass/Vol] 2.5 mg/dL High 1.7-2.3 [facility] Comment on above: Order Comment: Speci men Type: BLOOD SPECIMEN Performed By: #### 1 9123-9, 2777-1 ####[facility] LABORATORYCLIA [id number] [address] [facility] NURSING PROGon 05-30-2021 NURSING PROG HNO ID: [id number] Author: Precious Cervantes RN Service: ? Author Type: Registered Nurse Type: Nursing Progress Note Filed: 05/30/2021 11:26 AM Note Text: Nursing Progress Note Patient Name: Andrew Sifuentes Patient Location: [place] [id number] Daily Note: 0700- Report received from power and recovery shift engineer RN, patient resting in bed at this time, call light within reach, bed low and locked. Asked the patient to state his name because power and recovery shift engineer RN was unable to complete his admission r/t mentation. Sister Triny stated that the patient is normally AANDOx3 at baseline. I had to sternal rubbed the patient in order to get him to respond. Stated his name was Don and went back to sleep. 09- Attempted [...] and consulted neuro. Will continue to monitor. 1120- Patient removed IV. Replaced and started Rocephin. ABG resulted PO2 of 67.8. Placed on 2L NC O2 sat @ 96%. Patient diaphoretic, VS remain stable. Patient unable to respond to questioning other than telling me his first name. Will continue to monitor. This note was completed by: Precious Cervantes [facility] NURSING PROG HNO ID: [id number] Author: Lyubov Day RN Service: ? Author Type: Registered Nurse Type: Nursing Progress Note Filed: 05/30/2021 1:27 AM Note Text: Nursing Progress Note Patient Name: Andrew Sifuentes Patient Location: [place] [id number] 0100: Patient is unresponsive to questions. Patient [...] This note was completed by: Lyubov Day [facility] Phosphate SerPl-mCncon 05-30 Phosphate [Mass/Vol] 3.5 mg/dL Normal 2.7-4.8 [facility] Comment on above: Order Comment: Speci men Type: BLOOD SPECIMEN Performed By: #### 1 9123-9, 2777-1 ####[facility] LABORATORYCLIA [id number] [place] [address] [place] Sepsis Lactateon 05-30-2021 Sepsis Lactate 1.5 mmol/L Normal 0.5-2.0 [facility] Comment on above: Performed By: #### S LACT ####[facility] [address] [place] [phone] Syphilis Ttl w/Reflxon 05-30 Syphilis Interp Cannot exclude recen t Treponemal infection if specimen collected within 7 to 10 days after appearance of suspect lesions or 2 to 3 weeks after an exposure. Clinical correlation is required. Normal [facility] Comment on above: Performed By: #### S YPHTX, B1WB ####[facility] [address] [place], [place] [phone] Syphilis Screen Rslt Non-Reactive Normal Non Reactive [facility] Comment on above: Performed By: #### S YPHTX, B1WB ####[facility] [address] [place], [place] [phone] THERAPY NTon 05-30-2021 THERAPY NT HNO ID: [id number] Author: RADHA Andres/Felecia Service: Occupational Therapy Author Type: Occupational Therapist Type: Therapy (PT/OT/Speech/Resp) Filed: 05/30/2021 10:29 AM Note Text: OCCUPATIONAL THERAPY MISSED VISIT SERVICE DATE: 05/30/2021 SERVICE TIME: 1017 to 1019 ROOM: [place] [address] Attempted Evaluation. Patient not seen due to Not following commands. Per nursing patient was seen by neuro and they are talking about having him transferred to [facility] secondary to shunt concerns. Will re attempt in the event patient continues to be admitted at [place] and is able to participate. SIGNATURE: RADHA Andres/Felecia PATIENT NAME: Andrew Sifuentes DATE: May 30, 2021 TIME: 10:21 AM [facility] THERAPY NT HNO ID: [id number] Author: Bette Velasquez PT Service: Physical Therapy Author Type: Physical Therapist Type: Therapy (PT/OT/Speech/Resp) Filed: 05/30/2021 8:42 AM Note Text: PHYSICAL THERAPY MISSED VISIT SERVICE DATE: 05/30/2021 SERVICE TIME: 0840 to 0840 ROOM: [place] [address] Attempted Evaluation. Patient not seen due to (pt difficult to awake per RN, very lethargic). Will re-attempt when schedule permits. SIGNATURE: Bette Velasquez, PT PATIENT NAME: Andrew Sifuentes DATE: May 30, 2021 TIME: 8:41 AM Normal [facility] Toxicology Screen,Uron 05-30 Amphetamines, Urine Negative Normal Negative [facility] Comment on above: Result Comment: Cuto ff threshold at 1000 ng/mL. Performed By: #### C AD #### [facility] [address] [place] [phone] [facility] [address] [place] [address] Barbiturates, Urine Negative Normal Negative [facility] Comment on above: Result Comment: Cuto ff threshold at 200 ng/mL. Performed By: #### C AD #### [facility] [address] [place] [phone] [facility] [address] [place] [address] Benzodiazepines, Ur Negative Normal Negative [facility] Comment on above: Result Comment: Cuto ff threshold at 200 ng/mL. Performed By: #### C AD #### [facility] [address] [place] [phone] [facility] [address] [place] [phone] Cannabinoids, Urine Negative Normal Negative [facility] Comment on above: Result Comment: Cuto ff threshold at 50 ng/mL. Performed By: #### C AD #### [facility] [address] [place] [phone] [facility] Laboratories [address] [place] [address] Cocaine, Urine Negative Normal Negative [facility] Comment on above: Result Comment: Cuto ff threshold at 300 ng/mL. Performed By: #### C AD #### [facility] [address] [place] [phone] [place] 616430 [place] [address] Opiates, Urine Negative Normal Negative [facility] Comment on above: Result Comment: Cuto ff threshold at 300 ng/mL. Performed By: #### C AD #### [facility] [address] [place], [place] [phone] [place] [address] Oxycodone, Urine Negative Normal Negative [facility] Comment on above: Result Comment: Cuto ff [...] on the same specimen through Client Services ([phone]) if contacted within 48 hours of initial testing. [1]Substance Abuse and Mental Health Services Administration (2012). Clinical Drug Testing in Primary Care Technical Assistance Publication Series 32. Department of Health and Human Services, [place], p.10. Performed By: #### C AD #### [facility] [address] [place], [place] [phone] [place] [address] Phencyclidine, Urine Negative Normal Negative [facility] Comment on above: Result Comment: Cuto ff threshold at 25 ng/mL. Performed By: #### C AD #### [facility] [address] [place], [place] [phone] [place] [address] Troponin Ton 05-30-2021 Troponin T <0.010 Normal 0.000-0.029 [facility] Comment on above: Performed By: #### T NT ####[facility] [address] [place] [phone] Urinalysison 05-30-2021 Bilirubin, Urine Negative Normal Negative [facility] Comment on above: Performed By: #### C AD #### [facility] [address] [place] [address] [facility] [address] [place], [place] [address] Clarity (U) Slightly Cloudy Critically abnormal Clear [facility] Comment on above: Performed By: #### C AD #### [facility] [address] [place] [phone] [facility] [address] [place], [place] [address] Color (U) Yellow Normal Yellow [facility] Comment on above: Performed By: #### C AD #### [facility] [address] [place] [address] [facility] [address] [place], [place] [address] Glucose Ql (U) Negative Normal Negative [facility] Comment on above: Performed By: #### C AD #### [facility] [address] [place] [address] [facility] [address] [place], [place] [address] Hemoglobin/Blood,Ur Negative Normal Negative [facility] Comment on above: Performed By: #### C AD #### [facility] [address] [place] [address] [facility] [address] [place], [place] [address] Ketones Ql (U) Negative Normal Negative [facility] Comment on above: Performed By: #### C AD #### [facility] [address] [place] [address] [facility] [address] [place], [place] [address] Leukest Negative Normal Negative [facility] Comment on above: Performed By: #### C AD #### [facility] [address] [place] [address] [facility] [address] [place], [place] [address] Nitrite Ql (U) Negative Normal Negative [facility] Comment on above: Performed By: #### C AD #### [facility] [address] [place] [address] [address] pH (U) 8.5 [pH] High 5.0-8.0 [facility] Comment on above: Performed By: #### C AD #### [facility] [address] [place] [address] [address] Protein, Urine Negative Normal Negative [facility] Comment on above: Performed By: #### C AD #### [facility] [address] [place] [address] [place] [address] Specific [place], Ur 1.015 Normal 1.005-1.030 [facility] Comment on above: Performed By: #### C AD #### [facility] [address] [place], [place] [phone] [address] [address] Urobilinogen Qn (U) 0.2 {Marianne'U}/dL Normal 0.2-1.0 [facility] Comment on above: Performed By: #### C AD #### [facility] [address] [place] [address] [address] Vitamin B1, Whole Blon 05-30 Vitamin B1 (TDP), WB 207.1 nmol/L Normal 84.0-213.0 [facility] Comment on above: Result Comment: This assay measures the concentration of thiamine diphosphate (TDP), the primary active form of vitamin B1. Approximately 90 percent of vitamin B1 present in whole blood is TDP. Thiamine and thiamine monophosphate, which comprise the remaining 10 percent, are not measured. This test was developed and its performance characteristics determined by [facility]'s [facility] ([facility]). It has not been cleared or approved by the FDA. [facility] is regulated under CLIA as qualified to perform high complexity testing. This test is used for clinical purposes. It should not be regarded as investigational or for research. Performed By: #### S YPHTX, B1WB ####[facility] [address] [place], [place] [phone] Vitamin B12on 05-30-2021 Cobalamin (Vitamin B12) [Mass/Vol] 494 pg/mL Normal 232-1245 [facility] Comment on above: Performed By: #### C AD #### [facility] [address] [place] [address] [facility] [address] [place], [place] [address] ALLIED HEALTHon 05-29-2021 ALLIED HEALTH HNO ID: [id number] Author: RT Kitty(Lisa) Service: Radiology Author Type: Technologist Type: Allied [...] Kitty(R) May 29, 2021 8:51 PM Normal [facility] ALLIED HEALTH HNO ID: [id number] Author: Markie Fish Service: ? Author Type: Respiratory Therapy Technician Type: Allied Health Filed: 05/29/2021 8:39 PM [...] Fish May 29, 2021 8:38 PM Normal [facility] CBC and Differentialon 05-29 Abs Baso 0.05 k/uL Normal <0.11 [facility] Comment on above: Performed By: #### C MP, MG1, CBCDIF ####[facility] [address] [place] [address] Abs [place] 0.72 k/uL Normal <0.87 [facility] Comment on above: Performed By: #### C MP, MG1, CBCDIF ####[facility] [address] [place] [address] Abs Neut 7.86 k/uL High 1.45-7.50 [facility] Comment on above: Performed By: #### C MP, MG1, CBCDIF ####[facility] [address] [place] [address] Absolute nRBC <0.01 Normal <0.01 [facility] Comment on above: Performed By: #### C MP, MG1, CBCDIF ####[facility] [address] [place] [address] Basophils/100 WBC (Bld) 0.5 % Normal [facility] Comment on above: Performed By: #### C MP, MG1, CBCDIF ####[facility] [address] [place] [address] DTYPE Auto Diff Normal [facility] Comment on above: Performed By: #### C MP, MG1, CBCDIF ####[facility] [address] [place] [address] Eosinophils (Bld) [#/Vol] 0.10 10*3/uL Normal <0.46 [facility] Comment on above: Performed By: #### C MARÍA ELENA MG1, CBCDIF ####[place] [address] Eosinophils/100 WBC (Bld) 0.9 % Normal [facility] Comment on above: Performed By: #### C MP MG1, CBCDIF ####[place] [address] Erythrocyte distribution width (RBC) [Ratio] 15.5 % High 11.5-15.0 [facility] Comment on above: Performed By: #### C MARÍA ELENA MG1, CBCDIF ####[place] [address] Hematocrit (Bld) [Volume fraction] 41.6 % Normal 39.0-51.0 [facility] Comment on above: Performed By: #### C MARÍA ELENA MG1, CBCDIF ####[place] [address] Hemoglobin (Bld) [Mass/Vol] 12.7 g/dL Low 13.0-17.0 [facility] Comment on above: Performed By: #### C MARÍA ELENA MG1, CBCDIF ####[place] [address] Lymphocytes (Bld) [#/Vol] 2.04 10*3/uL Normal 1.00-4.00 [facility] Comment on above: Performed By: #### C MP, MG1, CBCDIF ####[place] [address] Lymphocytes/100 WBC (Bld) 18.9 % Normal [facility] Comment on above: Performed By: #### C MP MG1, CBCDIF ####[place] [address] MCH 27.3 pG Normal 26.0-34.0 [facility] Comment on above: Performed By: #### C MP, MG1, CBCDIF ####[place] [address] MCHC (RBC) [Mass/Vol] 30.5 g/dL Normal 30.5-36.0 [facility] Comment on above: Performed By: #### C MP, MG1, CBCDIF ####[facility] [address] [place] [address] MCV (RBC) [Entitic vol] 89.5 fL Normal 80.0-100.0 [facility] Comment on above: Performed By: #### C MP, MG1, CBCDIF ####[facility] [address] [place] [address] Monocytes/100 WBC (Bld) 6.7 % Normal [facility] Comment on above: Performed By: #### C MP, MG1, CBCDIF ####[place] [address] Neutrophils/100 WBC (Bld) 73.0 % Normal [facility] Comment on above: Performed By: #### C MP, MG1, CBCDIF ####[place] [address] NRBCs 0.0 /100 WBC Normal 0 [facility] Comment on above: Performed By: #### C MP, MG1, CBCDIF ####[place] [address] Platelet mean volume (Bld) [Entitic vol] 10.1 fL Normal 9.0-12.7 [facility] Comment on above: Performed By: #### C MP, MG1, CBCDIF ####[place] [address] Platelets (Bld) [#/Vol] 291 10*3/uL Normal 150-400 [facility] Comment on above: Performed By: #### C MP, MG1, CBCDIF ####[place] [address] RBC (Bld) [#/Vol] 4.65 10*6/uL Normal 4.20-6.00 [facility] Comment on above: Performed By: #### C MP, MG1, CBCDIF ####[facility] [address] [place] [phone] WBC (Bld) [#/Vol] 10.77 10*3/uL Normal 3.70-11.00 [facility] Comment on above: Performed By: #### C MP, MG1, CBCDIF ####[facility] [address] [place] [phone] CT BRAIN WO IVCONon 05-29-19 CT BRAIN WO IVCON * * *Final Report* * * DATE OF EXAM: May 29 2021 8:42PM [facility] 0504 - CT BRAIN WO IVCON / PROCEDURE REASON: Head trauma, headache * * * * Physician Interpretation * * * * EXAMINATION: CT CERVICAL SPINE WO IVCON, CT BRAIN WO IVCON CLINICAL HISTORY: C-spine trauma, NEXUS/CCR positive (accession [id number]), Head trauma, headache (accession [id number]) TECHNIQUE: Serial axial unenhanced images were obtained from the vertex to the foramen magnum. Spiral, high resolution axial unenhanced images were obtained from the skull base to the cervicothoracic junction with sagittal and coronal planar reconstructions. Dose-Length Product (DLP): 2132 mGy*cm. CT Dose Reduction Employed: Automated exposure control (AEC) COMPARISON: 08/13/[address] RESULT: BRAIN: Post-operative change: Right parietal approach WORK ADJUSTMENT INSTRUCTOR shunt is intact. The intracranial fragments of [...] vertebrae with counting from the craniocervical junction. Foxing Cutting Machine Operator: OG Transcribe Date/Time: May 29 2021 8:59P Dictated by : CARLOS YOUNGER MD This examination was interpreted and the report reviewed and electronically signed by: CARLOS YOUNGER MD on May 29 2021 9:14PM EST [id number] [facility] CT CERVICAL SPINE WO IVCONon 05-29-2021 CT CERVICAL SPINE WO IVCON * * *Final Report* * * DATE OF EXAM: May 29 2021 8:42PM [facility] 0505 - CT CERVICAL SPINE WO IVCON / PROCEDURE REASON: C-spine trauma, NEXUS/CCR positive * * * * Physician Interpretation * * * * EXAMINATION: CT CERVICAL SPINE WO IVCON, CT BRAIN WO IVCON CLINICAL HISTORY: C-spine trauma, NEXUS/CCR positive (accession [id number]), Head trauma, headache (accession [id number]) TECHNIQUE: Serial axial unenhanced images were obtained from the vertex to the foramen magnum. Spiral, high resolution axial unenhanced images were obtained from the skull base to the cervicothoracic junction with sagittal and coronal planar reconstructions. Dose-Length Product (DLP): 2132 mGy*cm. CT Dose Reduction Employed: Automated exposure control (AEC) COMPARISON: 08/13/[address] RESULT: BRAIN: Post-operative change: Right parietal approach WORK ADJUSTMENT INSTRUCTOR shunt is intact. The intracranial fragments of [...] vertebrae with counting from the craniocervical junction. [employer]ing Cutting Machine Operator: PSCB Transcribe Date/Time: May 29 2021 8:59P Dictated by : CARLOS YOUNGER MD This examination was interpreted and the report reviewed and electronically signed by: CARLOS YOUNGER MD on May 29 2021 9:14PM EST [id number] Normal [facility] Cepheid Bill only (EXCFR)on 05-29-2021 Cepheid Bill only (EXCFR) Billed for services performed Normal [facility] Comment on above: Performed By: #### C AD #### [facility] [address] [place] [address] [facility] [address] [place] [id number] Comp Metabolic Panelon 05-29 Albumin [Mass/Vol] 4.1 g/dL Normal 3.9-4.9 [facility] Comment on above: Performed By: #### C MP ####[facility] [address] [place] [address] ALP [Catalytic activity/Vol] 86 U/L Normal 38-113 [facility] Comment on above: Performed By: #### C MP ####[facility] [address] [place] [id number] ALT [Catalytic activity/Vol] 15 U/L Normal 10-54 [facility] Comment on above: Performed By: #### C MP ####[facility] [address] [place] [id number] Anion gap [Moles/Vol] 9 mmol/L Normal 9-18 [facility] Comment on above: Performed By: #### C MP ####[facility] [address] [place] [address] AST [Catalytic activity/Vol] 22 U/L Normal 14-40 [facility] Comment on above: Performed By: #### C MP ####[facility] [address] [place] [address] Bilirubin [Mass/Vol] 0.2 mg/dL Normal 0.2-1.3 [facility] Comment on above: Performed By: #### C MP ####[facility] [address] [place] [address] Calcium [Mass/Vol] 9.1 mg/dL Normal 8.5-10.2 [facility] Comment on above: Performed By: #### C MP ####[facility] [address] [place] [address] Chloride [Moles/Vol] 103 mmol/L Normal 97-105 [facility] Comment on above: Performed By: #### C MP ####[facility] [address] [place] [address] CO2 [Moles/Vol] 29 mmol/L Normal 22-30 [facility] Comment on above: Performed By: #### C MP ####[facility] [address] [place] [address] Creatinine [Mass/Vol] 0.89 mg/dL Normal 0.73-1.22 [facility] Comment on above: Performed By: #### C MP ####[facility] [address] [place] [address] eGFR- Amer. >60 Normal [facility] Comment on above: Performed By: #### C MP ####[facility] [address] [place] [address] eGFR-All Other Races >60 Normal [facility] Comment on above: Result Comment: eGFR (Estimated [...] at [email or web address]/gfr_[email or web address]. Performed By: #### C MP ####[facility] [address] [place] [address] Glucose [Mass/Vol] 120 mg/dL High 74-99 [facility] Comment on above: Result Comment: The [place] Diabetes Association (ADA) provides guidance for cutoff [...] Standards of Medical Care in Diabetes 2016, [place] [employer]. Diabetes Care. 2016.39(Suppl 1). Performed By: #### C MP ####[place] [address] Potassium [Moles/Vol] 4.2 mmol/L Normal 3.7-5.1 [facility] Comment on above: Performed By: #### C MP ####[place] [address] Protein [Mass/Vol] 7.1 g/dL Normal 6.3-8.0 [facility] Comment on above: Performed By: #### C MP ####[place] [address] Sodium [Moles/Vol] 141 mmol/L Normal 136-144 [facility] Comment on above: Performed By: #### C MP ####[facility] [address] [place] [address] Urea nitrogen [Mass/Vol] 11 mg/dL Normal 9-24 [facility] Comment on above: Performed By: #### C MP ####[facility] [address] [place] [address] Albumin [Mass/Vol] 4.1 g/dL Normal 3.9-4.9 [facility] Comment on above: Performed By: #### C MP, MG1, CBCDIF ####[facility] [address] [place] [address] ALP [Catalytic activity/Vol] 86 U/L Normal 38-113 [facility] Comment on above: Performed By: #### C MP, MG1, CBCDIF ####[facility] [address] [place] [address] ALT Unable to assay due to interference from hemolysis. Suggest reorder as clinically indicated. Normal 10-54 [facility] Comment on above: Result Comment: Call ed to ED Álvaro at 2128 on 05.29.21 by Sabino Performed By: #### C MP, MG1, CBCDIF ####[facility] [address] [place] [address] Anion gap [Moles/Vol] 12 mmol/L Normal 9-18 [facility] Comment on above: Performed By: #### C MP, MG1, CBCDIF ####[facility] [address] [place] [address] AST Unable to assay due to interference from hemolysis. Suggest reorder as clinically indicated. Normal 14-40 [facility] Comment on above: Result Comment: Call ed to ED Álvaro at 2128 on 05.29.21 by Sabino Performed By: #### C MP, MG1, CBCDIF ####[facility] [address] [place] [address] Bilirubin [Mass/Vol] 0.2 mg/dL Normal 0.2-1.3 [facility] Comment on above: Performed By: #### C MP, MG1, CBCDIF ####[facility] [address] [place] [address] Calcium [Mass/Vol] 9.0 mg/dL Normal 8.5-10.2 [facility] Comment on above: Performed By: #### C MP, MG1, CBCDIF ####[facility] [address] Chloride [Moles/Vol] 102 mmol/L Normal 97-105 [facility] Comment on above: Performed By: #### C MARÍA ELENA MG1, CBCDIF ####[facility] [address] [place] [id number] CO2 [Moles/Vol] 27 mmol/L Normal 22-30 [facility] Comment on above: Performed By: #### C MARÍA ELENA MG1, CBCDIF ####[facility] [address] [place] [id number] Creatinine [Mass/Vol] 0.75 mg/dL Normal 0.73-1.22 [facility] Comment on above: Performed By: #### C MARÍA ELENA MG1, CBCDIF ####[facility] [address] [place] [address] eGFR- Amer. >60 Normal [facility] Comment on above: Performed By: #### C MARÍA ELENA MG1, CBCDIF ####[facility] [address] [place] [address] eGFR-All Other Races >60 Normal [facility] Comment on above: Result Comment: eGFR (Estimated [...] website at [email or web address]/gfr_calculator. Performed By: #### C MARÍA ELENA, MG1, CBCDIF ####[facility] [address] [place] [address] Glucose [Mass/Vol] 112 mg/dL High 74-99 [facility] Comment on above: Result Comment: The [place] Diabetes Association (ADA) provides guidance for cutoff [...] Standards of Medical Care in Diabetes 2016, [place] [employer]. Diabetes Care. 2016.39(Suppl 1). Performed By: #### C MP, MG1, CBCDIF ####[facility] [address] [place] [address] Potassium Unable to assay due to interference from hemolysis. Suggest reorder as clinically indicated. Normal 3.7-5.1 [facility] Comment on above: Result Comment: Call ed to ED Álvaro at 2129 on 05.29.21 by Sabino Performed By: #### C MP, MG1, CBCDIF ####[facility] [address] [place] [address] Protein [Mass/Vol] 7.3 g/dL Normal 6.3-8.0 [facility] Comment on above: Performed By: #### C MP, MG1, CBCDIF ####[facility] [address] [place] [address] Sodium [Moles/Vol] 141 mmol/L Normal 136-144 [facility] Comment on above: Performed By: #### C MP, MG1, CBCDIF ####[facility] [address] [place] [address] Urea nitrogen [Mass/Vol] 11 mg/dL Normal 9-24 [facility] Comment on above: Performed By: #### C MP, MG1, CBCDIF ####[facility] [address] [place] [address] ED PROV NOTEon 05-29-2021 ED PROV NOTE HNO ID: [id number] Author: Shanell Slaughter MD Service: ? Author [...] No radiographic evidence of acute cardiopulmonary disease. 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 [employer] Cutting Machine Operator: OG Transcribe Date/Time: May 29 2021 8:59P [...] vertebrae with counting from the craniocervical junction. [employer]ing Cutting Machine Operator: OG Transcribe Date/Time: May 29 (more content not included)... 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 Provider Location: [facility] Patient Location: Outpatient [facility] Physical Exam Vital [...] Clinical Impression Clinical Impressions as of 05/29/21 1906 General weakness Fall, initial encounter MDM / [...] to assist. He has agreed. MDM SIGNATURE: Flavoi Pandya, DO Flavio Pandya, DO 05/29/211909 Normal [facility] EXCOVD, Flu A/B, RSV (On int erfaces 1102,1120)on 05-29-2021 Influenza A PCR Negative Normal [facility] Comment on above: Performed By: #### C AD #### [facility] [address] [place] [phone] Influenza B PCR Negative [facility] Comment on above: Performed By: #### C AD #### [facility] [address] [place] [phone] RSV PCR Negative [facility] Comment on above: Result Comment: This test has been authorized by FDA under an Emergency Use Authorization (EUA). Performed By: #### C AD #### [facility] [address] [place] [phone] SARS-CoV-2 (COVID-19) RNA MEGAN+probe Ql (Unsp spec) UPPER RESPIRATORY TRACT SWAB Normal [facility] Comment on above: Performed By: #### C AD #### [facility] [address] [place] [phone] SARS-CoV-2 (COVID-19) RNA MEGAN+probe Ql (Unsp spec) Negative for COVID19 (SARS CoV2) by RT-PCR or equivalent method. Normal Negative for COVID19 (SARS CoV2) by RT-PCR or equivalent method. [facility] Comment on above: Result Comment: This test has been authorized by FDA under an Emergency Use Authorization (EUA). Performed By: #### C AD #### [facility] [address] [place] [address] [facility] [address] [place], [place] [address] Magnesiumon 05-29-2021 Magnesium [Mass/Vol] 2.2 mg/dL Normal 1.7-2.3 [facility] Comment on above: Performed By: #### C MP, MG1, CBCDIF ####[facility] R[address]zg[address]47 [phone] NT Pro BNPon 05-29-2021 PRO B Natr Peptide 303 pg/mL High <125 [facility] Comment on above: Performed By: #### N TBNP ####[facility] [address] [place] [phone] Troponin Ton 05-29-2021 Troponin T <0.010 Normal 0.000-0.029 [facility] Comment on above: Performed By: #### T NT ####[facility] [address] [place] [phone] Troponin T Unable to assay due to interference from hemolysis. Suggest reorder as clinically indicated. Normal 0.000-0.029 [facility] Comment on above: Result Comment: Call ed to ED Álvaro at 2129 on 05.29.21 by Sabino Performed By: #### T NT ####[facility] [address] [place] [phone] XR CHEST 1V FRONTAL PORTon 0 05-29-2021 [...] No radiographic evidence of acute cardiopulmonary disease. 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 [address] ALP [Catalytic activity/Vol] 71 U/L Normal 33 - 136 [facility] Comment on above: Order Comment: PATIE NT FASTING Performed By: #### C MP #### [facility] [address] [place] [address] ALT [Catalytic activity/Vol] 19 U/L Normal 10 - 52 [facility] Comment on above: Order Comment: PATIE NT FASTING Result Comment: Nasima ents treated with Sulfasalazine may generate falsely decreased results for ALT. Performed By: #### C MP #### [facility] [address] [place] [address] Anion gap [Moles/Vol] 13 mmol/L Normal 10 - 20 [facility] Comment on above: Order Comment: PATIE NT FASTING Performed By: #### C MP #### [facility] [address] [place] [address] AST [Catalytic activity/Vol] 20 U/L Normal 9 - 39 [facility] Comment on above: Order Comment: PATIE NT FASTING Performed By: #### C MP #### [facility] [address] [place] [address] Bilirubin [Mass/Vol] 0.6 mg/dL Normal 0.0 - 1.2 [facility] Comment on above: Order Comment: PATIE NT FASTING Performed By: #### C MP #### [facility] [address] [place] [address] Calcium [Mass/Vol] 9.0 mg/dL Normal 8.6 - 10.6 [facility] Comment on above: Order Comment: PATIE NT FASTING Performed By: #### C MP #### [facility] [address] [place] [address] Chloride [Moles/Vol] 103 mmol/L Normal 98 - 107 [facility] Comment on above: Order Comment: PATIE NT FASTING Performed By: #### C MP #### [facility] [address] [place] [address] Creatinine [Mass/Vol] 0.94 mg/dL Normal 0.50 - 1.30 [facility] Comment on above: Order Comment: PATIE NT FASTING Performed By: #### C MP #### [facility] [address] [place] [address] GFR- AM. >60 Normal >60 [facility] Comment on above: Order Comment: PATIE NT FASTING Result Comment: CALC ULATIONS OF ESTIMATED GFR ARE PERFORMED USING THE MDRD STUDY EQUATION FOR THE IDMS-TRACEABLE CREATININE METHODS. CLIN CHEM 2007;53:766-72 Performed By: #### C MP #### [facility] [address] [place] [address] GFR-NON AM. >60 Normal >60 [facility] Comment on above: Order Comment: PATIE NT FASTING Performed By: #### C MP #### [facility] [address] [place] [address] Glucose [Mass/Vol] 85 mg/dL Normal 74 - 99 [facility] Comment on above: Order Comment: PATIE NT FASTING Performed By: #### C MP #### [facility] [address] [place] [address] HCO3 (Bld) [Moles/Vol] 30 mmol/L Normal 21 - 32 [facility] Comment on above: Order Comment: PATIE NT FASTING Performed By: #### C MP #### [facility] [address] [place] [address] Potassium [Moles/Vol] 4.1 mmol/L Normal 3.5 - 5.3 [facility] Comment on above: Order Comment: PATIE NT FASTING Performed By: #### C MP #### [facility] [address] [place] [address] Protein [Mass/Vol] 6.6 g/dL Normal 6.4 - 8.2 [facility] Comment on above: Order Comment: PATIE NT FASTING Performed By: #### C MP #### [facility] [address] [place] [address] Sodium [Moles/Vol] 142 mmol/L Normal 136 - 145 [facility] Comment on above: Order Comment: PATIE NT FASTING Performed By: #### C MP #### [facility] [address] [place] [address] Urea nitrogen [Mass/Vol] 14 mg/dL Normal 6 - 23 [facility] Comment on above: Order Comment: PATIE NT FASTING Performed By: #### C MP #### [facility] [address] [place] [address] LIPID PANEL (CORONARY RISK 2 )on 09-03-2020 Cholesterol [Mass/Vol] 210 mg/dL High 0 - 199 [facility] Comment on above: Order Comment: PATIE NT [...] dosing. Performed By: #### L IPID #### [facility] [address] [place] [address] Cholesterol in HDL [Mass/Vol] 50.1 mg/dL Normal [facility] Comment on above: Order Comment: PATIE NT FASTING Result Comment: . AGE VERY LOW LOW NORMAL HIGH 0-19 Y < 35 < 40 40-45 ---- 20-24 Y ---- < 40 >45 ---- >24 Y ---- < 40 40-60 >60 . Performed By: #### L IPID #### [facility] [address] [place] [address] Cholesterol in LDL [Mass/Vol] 130 mg/dL High 0 - 99 [facility] Comment on above: Order Comment: PATIE NT FASTING Result Comment: . NEAR BORD AGE DESIRABLE OPTIMAL HIGH HIGH VERY HIGH 0-19 Y 0 - 109 --- 110-129 >/= 130 ---- 20-24 Y 0 - 119 --- 120-159 >/= 160 ---- >24 Y 0 - 99 100-129 130-159 160-189 >/=190 . Performed By: #### L IPID #### [facility] [address] [place] [address] Cholesterol in VLDL [Mass/Vol] 30 mg/dL Normal 0 - 40 [facility] Comment on above: Order Comment: PATIE NT FASTING Performed By: #### L IPID #### [facility] [address] [place] [address] Cholesterol.total/Chol esterol in HDL [Mass ratio] 4.2 {ratio} Normal [facility] Comment on above: Order Comment: PATIE NT FASTING Result Comment: REF VALUES DESIRABLE < 3.4 HIGH RISK > 5.0 Performed By: #### L IPID #### [facility] [address] [place] [address] Triglyceride [Mass/Vol] 152 mg/dL High 0 - 149 [facility] Comment on above: Order Comment: PATIE NT [...] dosing. Performed By: #### L IPID #### [facility] [address] [place] [address] PROSTATE SPEC.AG,SCREENon PROSTATE SPEC.AG,SCREEN 0.37 ng/mL Normal 0.00 - 4.00 [facility] Comment on above: Order Comment: PATIE NT FASTING Result Comment: The FDA requires that the method used for PSA assay be reported to the physician. Values obtained with different assay methods must not be used interchangeably. This test was performed at [facility] using the Siemens achvr PSA method, which is a sandwich immunoassay using chemiluminescence for quantitation. The assay is approved for measurement of prostate-specific antigen (PSA) in serum and may be used in conjunction with a digital rectal examination in men 50 years and older as an aid in detection of prostate cancer. 2-Zluqt-pkzappajl inhibitors (e.g. Proscar, Finasteride, Avodart, Dutasteride and Elizabeth) for the treatment of BPH have been shown to lower PSA levels by an average of 50% after 6 months of treatment. Performed By: #### P SASC #### [facility] [address] [place] [address] TSH WITH REFLEX TO FREE T4 I F ABNORMALon 09-03-2020 TSH Qn 0.97 m[IU]/L Normal 0.44 - 3.98 [facility] Comment on above: Order Comment: PATIE NT FASTING Result Comment: TSH testing is performed using different testing methodology at [facility] than at other [facility]. Direct result comparisons should only be made within the same method. Performed By: #### T HYDS #### [facility] [address] [place] [address] CBC AND DIFFERENTIALon 09-02 % AUTOMATED IMMATURE GRAN 0.3 % Normal 0.0 - 0.9 [facility] Comment on above: Order Comment: PATIE NT FASTING Result Comment: [place] t[place] Granulocyte Count (IG) includes promyelocytes, myelocytes and metamyelocytes but does not include bands. Percent differential counts (%) should be interpreted in the context of the absolute cell counts (cells/L). Performed By: #### C BCDF #### [facility] [address] [place] [address] Basophils (Bld) [#/Vol] 0.07 10*3/uL Normal 0.00 - 0.10 [facility] Comment on above: Order Comment: PATIE NT FASTING Result Comment: Auto mated WBC differential has been confirmed by manual smear. Performed By: #### C BCDF #### [place] [address] [place] [address] Basophils/100 WBC (Bld) 0.9 % Normal 0.0 - 2.0 [facility] Comment on above: Order Comment: PATIE NT FASTING Performed By: #### C BCDF #### [place] [address] [place] [address] Eosinophils (Bld) [#/Vol] 0.21 10*3/uL Normal 0.00 - 0.70 [facility] Comment on above: Order Comment: PATIE NT FASTING Performed By: #### C BCDF #### [facility] [address] [place] [address] Eosinophils/100 WBC (Bld) 2.8 % Normal 0.0 - 6.0 [facility] Comment on above: Order Comment: PATIE NT FASTING Performed By: #### C BCDF #### [facility] [address] [place] [address] Lymphocytes (Bld) [#/Vol] 2.28 10*3/uL Normal 1.20 - 4.80 [facility] Comment on above: Order Comment: PATIE NT FASTING Performed By: #### C BCDF #### [facility] [address] [place] [address] Lymphocytes/100 WBC (Bld) 30.9 % Normal 13.0 - 44.0 [facility] Comment on above: Order Comment: PATIE NT FASTING Performed By: #### C BCDF #### [facility] [address] [place] [address] Monocytes (Bld) [#/Vol] 0.50 10*3/uL Normal 0.10 - 1.00 [facility] Comment on above: Order Comment: PATIE NT FASTING Performed By: #### C BCDF #### [facility] [address] [place] [address] Monocytes/100 WBC (Bld) 6.8 % Normal 2.0 - 10.0 [facility] Comment on above: Order Comment: PATIE NT FASTING Performed By: #### C BCDF #### [facility] [address] [place] [address] Neutrophils (Bld) [#/Vol] 4.29 10*3/uL Normal 1.20 - 7.70 [facility] Comment on above: Order Comment: PATIE NT FASTING Performed By: #### C BCDF #### [facility] [address] [place] [address] Neutrophils/100 WBC (Bld) 58.3 % Normal 40.0 - 80.0 [facility] Comment on above: Order Comment: PATIE NT FASTING Performed By: #### C BCDF #### [facility] [address] [place] [address] Erythrocyte distribution width (RBC) [Ratio] 14.6 % High 11.5 - 14.5 [facility] Comment on above: Order Comment: PATIE NT FASTING Performed By: #### C BCDF #### [facility] [address] [place] [address] Hematocrit (Bld) [Volume fraction] 43.1 % Normal 41.0 - 52.0 [facility] Comment on above: Order Comment: PATIE NT FASTING Performed By: #### C BCDF #### [facility] [address] [place] [address] Hemoglobin (Bld) [Mass/Vol] 13.3 g/dL Low 13.5 - 17.5 [facility] Comment on above: Order Comment: PATIE NT FASTING Performed By: #### C BCDF #### [facility] [address] [place] [address] MCHC (RBC) [Mass/Vol] 30.9 g/dL Low 32.0 - 36.0 [facility] Comment on above: Order Comment: PATIE NT FASTING Performed By: #### C BCDF #### [facility] [address] [place] [address] MCV (RBC) [Entitic vol] 92 fL Normal 80 - 100 [facility] Comment on above: Order Comment: PATIE NT FASTING Performed By: #### C BCDF #### [facility] [address] [place] [address] NUCLEATED RBC 0.0 /100 WBC Normal 0.0-0.0 [facility] Comment on above: Order Comment: PATIE NT FASTING Performed By: #### C BCDF #### [facility] [address] [place] [address] Platelets (Bld) [#/Vol] 267 10*3/uL Normal 150 - 450 [facility] Comment on above: Order Comment: PATIE NT FASTING Performed By: #### C BCDF #### [facility] [address] [place] [address] RBC 4.69 x10E12/L Normal 4.50 - 5.90 [facility] Comment on above: Order Comment: PATIE NT FASTING Performed By: #### C BCDF #### [facility] [address] [place] [address] WBC (Bld) [#/Vol] 7.4 10*3/uL Normal 4.4 - 11.3 [facility] Comment on above: Order Comment: PATIE NT FASTING Performed By: #### C BCDF #### [facility] [address] [place] [address] RED CELL MORPHOLOGYon 2020 CHANELL CELLS Few Normal [facility] Comment on above: Order Comment: PATIE NT FASTING Performed By: #### M ORP2 #### [facility] [address] [place] [address] OVALOCYTES Few Normal [facility] Comment on above: Order Comment: PATIE NT FASTING Performed By: #### M ORP2 #### [facility] [address] [place] [address] POLYCHROMASIA Mild Normal [facility] Comment on above: Order Comment: PATIE NT FASTING Performed By: #### M ORP2 #### [facility] [address] [place] [address] RBC FRAGMENTS Few Normal [facility] Comment on above: Order Comment: PATIE NT FASTING Performed By: #### M ORP2 #### [facility] [address] [place] [address] RBC morphology finding Nom (Bld) See Below Normal [facility] Comment on above: Order Comment: PATIE NT FASTING Performed By: #### M ORP2 #### [facility] [address] [place] [address] No Panel Informationon 01-19 76 1 MP-Cardiolo [...] [facility] [place] Work Phone: [email or web address] ?RetrieveTestByDateTime?[email or web address]&Date=1 09-13-2019&Time=15%3a11%3a 03%3a00&TestType=ECG&Site =1&OutputType=PDF&Ext=PDF [facility]iol[facility] [address] [place] Work Phone: Otheron 11-13-2019 [facility] Complete Blood Count + Diffe rentialon 11-06-2019 Basophils (Bld) [#/Vol] 0.06 {x10E9/L} See Below [facility] Work Phone: Comment on above: Reference Range: 0.0 0 - 0.10 Basophils/100 WBC (Bld) 0.8 % 0.0 - 2.0 [facility] Work Phone: Eosinophils (Bld) [#/Vol] 0.18 {x10E9/L} See Below [facility] Work Phone: Comment on above: Reference Range: 0.0 0 - 0.70 Eosinophils/100 WBC (Bld) 2.5 % 0.0 - 6.0 [facility] Work Phone: Erythrocyte distribution width (RBC) [Ratio] 13.7 % See Below [facility] Work Phone: Comment on above: Reference Range: 11. 5 - 14.5 Hematocrit (Bld) [Volume fraction] 45.5 % See Below [facility] Work Phone: Comment on above: Reference Range: 41. 0 - 52.0 Hemoglobin (Bld) [Mass/Vol] 14.0 g/dL See Below [facility] Work Phone: Comment on above: Reference Range: 13. 5 - 17.5 Lymphocytes (Bld) [#/Vol] 2.15 {x10E9/L} See Below [facility] Work [...] (Bld) [#/Vol] 7.2 {x10E9/L} 4.4 - 11.3 [facility] Work Phone: Complete Blood Count + Differential 0.1 % 0.0 - 0.9 [facility] Work Phone: Comment on above: Immature Granulocyte Count (IG) includes promyelocytes, myelocytes and metamyelocytes but does not include bands. Percent differential counts (%) should be interpreted in the context of the absolute cell counts (cells/L). Lipid Panelon 11-06-2019 Cholesterol [Mass/Vol] 181 mg/dL 0 - 199 [facility] Work Phone: Comment on above: [...] dosing. Cholesterol in HDL [Mass/Vol] 52.1 mg/dL [facility] Work Phone: Comment on above: . AGE VERY LOW LOW N ORMAL HIGH 0-19 Y < 35 < 40 40-45 ---- 20-24 Y ---- < 40 >45 ---- >24 Y ---- < 40 40-60 >60. Cholesterol in LDL [Mass/Vol] 97 mg/dL 0 - 99 [facility] Work Phone: Comment on above: . NEAR BORD AGE IZABELLA RABLE OPTIMAL HIGH HIGH VERY HIGH 0-19 Y 0 - 109 --- 110-129 >/= 130 ---- 20-24 Y 0 - 119 --- 120-159 >/= 160 ---- >24 Y 0 - 99 100-129 130-159 160-189 >/=190. Cholesterol.total/Chol esterol in HDL [Mass ratio] 3.5 {ratio} [facility] Work Phone: Comment on above: REF VALUESDESIRABLE < 3.4HIGH RISK > 5.0 Triglyceride [Mass/Vol] 158 mg/dL above high threshold 0 - 149 [facility] Work Phone: Comment on [...] Lipid Panel 32 mg/dL 0 - 40 [facility] Work Phone: Metabolic Panelon 11-06-2019 ALP [Catalytic activity/Vol] 70 U/L 33 - 136 [facility] Work Phone: Anion gap [Moles/Vol] 13 mmol/L 10 - 20 [facility] Physician [facility] Work Phone: Bilirubin [Mass/Vol] 0.6 mg/dL 0.0 - 1.2 [facility] Work Phone: Calcium [Mass/Vol] 9.4 mg/dL 8.6 - 10.6 [facility] Work Phone: Chloride [Moles/Vol] 99 mmol/L 98 - 107 [facility] Work Phone: CO2 [Moles/Vol] 30 mmol/L 21 - 32 [facility] Work Phone: Creatinine [Mass/Vol] 0.87 mg/dL See Below [facility] Work Phone: Comment on above: Reference Range: 0.5 0 - 1.30 Glucose [Mass/Vol] 89 mg/dL 74 - 99 [facility] Work Phone: Potassium [Moles/Vol] 4.3 mmol/L 3.5 - 5.3 [facility] Work Phone: Protein [Mass/Vol] 7.3 g/dL 6.4 - 8.2 [facility] Work Phone: Sodium [Moles/Vol] 138 mmol/L 136 - 145 [facility] Work Phone: Urea nitrogen [Mass/Vol] 14 mg/dL 6 - 23 [facility] Work Phone: Otheron 11-06-2019 Albumin BCP dye [Mass/Vol] 4.4 g/dL 3.4 - 5.0 [facility] Work Phone: ALT With P-5'-P [Catalytic activity/Vol] 11 U/L 10 - 52 [facility] Work Phone: Comment on above: Patients treated wit h Sulfasalazine may generate falsely decreased results for ALT. AST With P-5'-P [Catalytic activity/Vol] 17 U/L 9 - 39 [facility] Work Phone: >60 >60 [facility] Work Phone: Comment on above: CALCULATIONS OF LUZMARIA MATED GFR ARE PERFORMED USING THE MDRD STUDY EQUATION FOR THE IDMS-TRACEABLE CREATININE METHODS. CLIN CHEM 2007;53:766-72 Culture, urine Bacteria identified Cx Nom (U) Mixed Gram Pos & Gram Neg Org [facility] Work Phone: Bacteria identified Cx Nom (U) Klebsiella pneumoniae sp pneum [facility] Work Phone: Vital Signs Date Time Vital Sign Value Performing Clinician Facility 09-13-2023 11:48-0400 Body height 175.3 cm Rebecca Buck MD Work Phone: [facility] 09-13-2023 11:48-0400 Body mass index (BMI) [Ratio] 25.84 kg/m2 Rebecca Buck MD Work Phone: [employer] 09-13-2023 11:48-0400 Body weight 79.38 kg Rebecca Buck MD Work Phone: [employer] 08-13-2023 09:56-0400 Body height 175.3 cm Rebecca Buck MD Work Phone: [facility] 08-13-2023 09:56-0400 Body mass index (BMI) [Ratio] 25.84 kg/m2 Rebecca Buck MD Work Phone: [facility] 08-13-2023 09:56-0400 Body weight 79.38 kg Rebecca Buck MD Work Phone: [facility] 03-02-2022 18:49-0400 Body temperature 98.01 [degF] Lanette Munguia DO Work Phone: [facility] 03-02-2022 18:49-0400 Diastolic blood pressure 72 mm[Hg] Lanette Munguia DO Work Phone: [facility] 03-02-2022 18:49-0400 Heart rate 94 /min Lanette Munguia DO Work Phone: [facility] 03-02-2022 18:49-0400 Respiratory rate 18 /min Lanette Munguia DO Work Phone: [facility] 03-02-2022 18:49-0400 SaO2% (BldA) [Mass fraction] 98 % Lanette Munguia DO Work Phone: [facility] 03-02-2022 18:49-0400 Systolic blood pressure 104 mm[Hg] Lanette Munguia DO Work Phone: [employer] 03-02-2022 11:55-0400 Body height 175.3 cm Lanette Munguia DO Work Phone: [employer] 03-02-2022 11:55-0400 Body mass index (BMI) [Ratio] 25.84 kg/m2 Lanette Munguia DO Work Phone: [facility] 03-02-2022 11:55-0400 Body weight 79.38 kg Lanette Munguia DO Work Phone: [facility] 12-22-2021 02:08-0400 Diastolic blood pressure 67 mm[Hg] Sharon Olivia MD Work Phone: [facility] 12-22-2021 02:08-0400 Heart rate 77 /min Sharon Olivia MD Work Phone: [facility] 12-22-2021 02:08-0400 Respiratory rate 16 /min Sharon Olivia MD Work Phone: [facility] 12-22-2021 02:08-0400 SaO2% (BldA) [Mass fraction] 96 % Sharon Olivia MD Work Phone: [facility] 12-22-2021 02:08-0400 Systolic blood pressure 108 mm[Hg] Sharon Olivia MD Work Phone: [facility] 12-21-2021 23:52-0400 Body height 175.3 cm Sharon Olivia MD Work Phone: [facility] 12-21-2021 23:52-0400 Body mass index (BMI) [Ratio] 25.84 kg/m2 Sharon Olivia MD Work Phone: [facility] 12-21-2021 23:52-0400 Body temperature 97.9 [degF] Sharon Olivia MD Work Phone: [facility] 12-21-2021 23:52-0400 Body weight 79.38 kg Sharon Olivia MD Work Phone: [facility] 11-01-2021 08:41-0400 Diastolic blood pressure 77 mm[Hg] Dante Kim MD Work Phone: [facility] 11-01-2021 08:41-0400 Heart rate 75 /min Dante Kim MD Work Phone: [facility] 11-01-2021 08:41-0400 Respiratory rate 16 /min Dnate Kim MD Work Phone: [facility] 11-01-2021 08:41-0400 SaO2% (BldA) [Mass fraction] 97 % Dante Kim MD Work Phone: [facility] 11-01-2021 08:41-0400 Systolic blood pressure 112 mm[Hg] Dante Kim MD Work Phone: [facility] 10-31-2021 19:13-0400 Body height 177.8 cm Dante Kim MD Work Phone: [facility] 10-31-2021 19:13-0400 Body mass index (BMI) [Ratio] 27.26 kg/m2 Dante Kim MD Work Phone: [facility] 10-31-2021 19:13-0400 Body temperature 98.49 [degF] Dante Kim MD Work Phone: [facility] 10-31-2021 19:13-0400 Body weight 86.18 kg Dante Kim MD Work Phone: [facility] 10-29-2021 07:38-0400 Body temperature 97.81 [degF] Lisa Miguel Angel DO Work Phone: [facility] 10-29-2021 07:38-0400 Diastolic blood pressure 79 mm[Hg] Lisa Miguel Angel DO Work Phone: [facility] 10-29-2021 07:38-0400 Heart rate 80 /min Lisa Miguel Angel DO Work Phone: [facility] 10-29-2021 07:38-0400 Respiratory rate 18 /min Lisa Miguel Angel DO Work Phone: [facility] 10-29-2021 07:38-0400 SaO2% (BldA) [Mass fraction] 96 % Lisa Miguel Angel DO Work Phone: [facility] 10-29-2021 07:38-0400 Systolic blood pressure 123 mm[Hg] Lisa Miguel Angel DO Work Phone: [facility] 10-25-2021 13:55-0400 Body height 170.2 cm Lisa Michelle DO Work Phone: [facility] 10-21-2021 00:57-0400 Body mass index (BMI) [Ratio] 37.58 kg/m2 Lisa Michelle DO Work Phone: [facility] 10-21-2021 00:57-0400 Body weight 108.86 kg Lisa Michelle DO Work Phone: [facility] 07-13-2020 13:21-0500 BMI (Body Mass Index) 40.47 kg/m2 Monika Staley [facility] Work Phone: 07-13-2020 13:21-0500 Body Temperature 98 [degF] Shiela Luís [facility] Work Phone: 07-13-2020 13:21-0500 Body weight 124.31 kg Monika Staley [facility] Work Phone: 07-13-2020 13:21-0500 BP Diastolic 78 mm[Hg] Shiela Luís [facility] Work Phone: 07-13-2020 13:21-0500 BP Systolic 138 mm[Hg] Monika Staley [facility] Work Phone: 07-13-2020 13:21-0500 BSA (Body Surface Area) 2.36 m2 [facility] Work Phone: 04-13-2020 15:33-0500 BMI (Body Mass Index) 40.32 kg/m2 Wing Ritter [facility] Work Phone: 04-13-2020 15:33-0500 Body weight 123.83 kg Wing Ritter [facility] Work Phone: 04-13-2020 15:33-0500 BP Diastolic 82 mm[Hg] Wing Ritter [facility] Work Phone: Comment on above: Location: RUE; Position: Sitting 04-13-2020 15:33-0500 BP Systolic 145 mm[Hg] Wing Ritter [facility] Work Phone: Comment on above: Location: RUE; Position: Sitting 04-13-2020 15:33-0500 BSA (Body Surface Area) 2.36 m2 [facility] Work Phone: 04-13-2020 15:33-0500 Height 175.26 [facility] Phone: 04-13-2020 15:33-0500 Pulse (Heart Rate) 98 /min [facility] Work Phone: 04-13-2020 15:33-0500 Pulse Oximetry 98 % Wing [facility] Work Phone: Comment on above: Source: 04-13-2020 15:33-0500 0 1 [facility] Work Phone: Comment on above: Pain Scale 01-20-2020 16:39-0400 Body height 175.26 cm Monika Staley MD [facility] [address] [place] Work Phone: 01-20-2020 16:39-0400 Body mass index (BMI) [Ratio] 39.28 kg/m2 Monika Staley MD LN-Eyriygymew-Pdv [facility] [address] [place] Work Phone: 01-20-2020 16:39-0400 Body surface area Derived from formula 2.33 m2 Monika Staley MD LB-Wxjvbwoexb-Ary r[facility] [address] [place] Work Phone: 01-20-2020 16:39-0400 Body weight 120.66 kg Monika Staley MD [facility] [address] [place] Work Phone: 01-20-2020 16:39-0400 Diastolic blood pressure 84 mm[Hg] Monika Staley MD BT-Vxiyusxusv-Uil [facility] [address] [place] Work Phone: Comment on above: Location: RLE; Position: Sitting 01-20-2020 16:39-0400 Heart rate 80 /min Monika Staley MD [facility] [address] [place] Work Phone: 01-20-2020 16:39-0400 SaO2% (BldA) [Mass fraction] 100 % Monika Staley MD, [facility] [address] [place] Work Phone: Comment on above: Source: 01-20-2020 16:39-0400 Systolic blood pressure 144 mm[Hg] Monika Staley MD ZH-Nxvuiarsao-Tfa [facility] [address] [place] Work Phone: Comment on above: Location: RLE; Position: Sitting 11-06-2019 15:29-0400 BMI (Body Mass Index) 38.31 kg/m2 Monika Staley [facility] Work Phone: 11-06-2019 15:29-0400 Body Temperature 97.6 [degF] Monika Staley [facility] Work Phone: 11-06-2019 15:29-0400 Body weight 117.66 kg [facility] Work Phone: 11-06-2019 15:29-0400 BP Diastolic 62 mm[Hg] Monika Staley [facility] Work Phone: 11-06-2019 15:29-0400 BP Systolic 140 mm[Hg] Monika Staley [facility] Work Phone: 11-06-2019 15:29-0400 BSA (Body Surface Area) 2.31 m2 Monika Staley [facility] Work Phone: 11-06-2019 15:29-0400 Height 175.26 cm Monika Staley [facility] Work Phone: Encounters Encounter Date Encounter Type Care Provider Facility Start: 11-13-2024 ambulatory [facility] O[facility] Facility:[facility] Start: 11-10-2024 ambulatory [facility] OLS Facility:[facility] Start: 11-06-2024 ambulatory [facility] OLS Facility:[facility] Start: 11-03-2024 ambulatory Carlos Maribelkameron OLS Faci lity:[facility] Start: 10-30-2024 ambulatory [facility] OLS Facility:[facility] Start: 10-30-2024 Registered Referred Karon casillas MD -[place] [employer] Start: 10-27-2024 ambulatory [facility] OLS Facility:[facility] Start: 10-27-2024 Registered [place] [employer] Start: 10-23-2024 ambulatory Monika Rosas ty:[facility] Start: 10-23-2024 Registered Referred [place] [employer] Start: 10-20-2024 ambulatory [facility] OLS Facility:[facility] Start: 10-20-2024 Registered Referred [place] [employer] Start: 10-16-20[facility] Start: 10-16-2024 Registered [place] [employer] Start: 10-13-2024 ambulatory Carlos Cavazos OLS Faci lity:[facility] Start: 10-13-2024 Registered Referred Carlos Cavazos - [place] [employer] Start: 10-09-2024 [facility] Facility:[facility] Start: 10-09-2024 Registered [place] [facility] [employer] Start: 10-06-2024 ambulatory Carlos Cavazos OLS Faci lity:[facility] Start: 10-06-2024 Registered Referred Carlos Cavazos - [place] [employer] Start: 10-02-2024 [facility] Start: 10-02-2024 Registered Referred Karon casillas MD -[place] [employer] Start: 09-30-2024 End: 09-30-[address] Monika Staley MD Work Phone: [facility] Work Phone: Start: 09-30-2024 End: 09-30-2024 Departed Referred Karon Corrales MD -[place] [employer] Start: 09-30-2024 Registered Referred Karon casillas MD -[place] [employer] Start: 09-30-2024 End: 09-30-2024 [facility] Start: 09-25-2024 ambulatory [facility] OLS Facility:[facility] Start: 09-25-2024 Registered Referred Karon casillas MD -[place] [employer] Start: 09-22-2024 End: 09-22-[address] Monika Staley MD Work Phone: -[place] [employer] Start: 09-22-2024 End: 09-22-2024 Departed Referred Karon Corrales MD -[place] [employer] Start: 09-22-2024 Registered Referred Karon casillas MD -[place] [employer] Start: 09-22-2024 End: 09-22-2024 [facility] Start: 09-18-2024 End: 09-18-[address] Monika Staley MD Work Phone: -[place] [employer] Start: 09-18-2024 End: 09-18-2024 Departed Referred Karon Corrales MD -[place] [employer] Start: 09-18-2024 Registered Referred Karon casillas MD -[place] [employer] Start: 09-18-2024 End: 09-18-2024 ambulatory Karon NOVAK Facility:[facility] Start: 09-15-2024 End: 09-15-[address] Monika Staley MD Work Phone: [facility] Work Phone: Start: 09-15-2024 End: 09-15-2024 Departed Referred Carlos Lópezsaviri -[place] [employer] Start: 09-15-2024 Registered Referred Carlos Lópezsaros - [place] [employer] Start: 09-15-2024 End: 09-15-2024 ambulatory Carlos Cavazos OLS Facility:[facility] Start: 09-11-2024 ambulatory Karon vidales OLS Facility:[facility] Start: 09-11-2024 Registered Referred Karon casillas MD -[place] [employer] Start: 09-08-2024 End: 09-08-[address] Moniak Staley MD Work Phone: [facility] Work Phone: Start: 09-08-2024 End: 09-08-2024 Departed Referred Karon Corrales MD -[place] [employer] Start: 09-08-2024 Registered Referred Karon casillas MD -[place] [employer] Start: 09-08-2024 End: 09-08-2024 ambulatory Karon NOVAK Facility:[facility] Start: 09-04-2024 End: 09-04-2024 Departed Referred Carlos Lópezsaros -[place] [employer] Start: 09-04-2024 Registered Referred Carlos Lópezsaros - [place] [employer] Start: 09-04-2024 End: 09-04-2024 ambulatory Carlos NOVAK Facility:[facility] Start: 09-01-2024 End: 09-01-[address] Monika Staley MD Work Phone: [facility] Work Phone: Start: 09-01-2024 End: 09-01-2024 Departed Referred Carlos Cavazos -[place] [employer] Start: 09-01-2024 Registered Referred Carlos Cavazos - [place] [employer] Start: 09-01-2024 End: 09-01-2024 ambulatory Carlos NOVAK Facility:[facility] Start: 08-28-2024 End: 08-28-[address] Monika Staley MD Work Phone: [facility] Work Phone: Start: 08-28-2024 End: 08-28-2024 Departed Referred Carlos Abdelrahmanviri -[place] [employer] Start: 08-28-2024 Registered Referred Carlos Abdelrahmanviri - [place] [employer] Start: 08-28-2024 End: 08-28-2024 ambulatory Carlos NOVAK Facility:[facility] Start: 08-25-2024 End: 08-25-[address] Monika Staley MD Work Phone: [facility] Work Phone: Start: 08-25-2024 End: 08-25-2024 Departed Referred Karon Corrales MD -[place] [employer] Start: 08-25-2024 Registered Referred Karon casillas MD -[place] [employer] Start: 08-25-2024 End: 08-25-2024 ambulatory Karon NOVAK Facility:[facility] Start: 08-21-2024 End: 08-21-[address] Monika Stalye MD Work Phone: [facility] Work Phone: Start: 08-21-2024 End: 08-21-2024 [place]ed [place] [employer] Start: 08-21-2024 Registered [place] [employer] Start: 08-21-2024 End: 08-21-2024 ambulatory Karon NOVAK Facility:[facility] Start: 08-18-2024 End: 08-18-[address] Monika Staley MD Work Phone: [facility] Work Phone: Start: 08-18-2024 End: 08-18-2024 Departed Referred Karon Corrales MD -[place] [employer] Start: 08-18-2024 Registered Referred Karon casillas MD -[place] [employer] Start: 08-18-2024 End: 08-18-2024 ambulatory Karon NOVAK Facility:[facility] Start: 08-14-2024 End: 08-14-[address] Monika Staley MD Work Phone: [facility] Work Phone: Start: 08-14-2024 End: 08-14-2024 [place]ed [place] [employer] Start: 08-14-2024 Registered Referred Karon casillas MD -[place] [employer] Start: 08-14-2024 End: 08-14-2024 ambulatory Karon NOVAK Facility:[facility] Start: 08-11-2024 End: 08-11-2024 Departed Referred Karon Corrales MD -[place] [employer] Start: 08-11-2024 Registered [place] [employer] Start: 08-11-2024 End: 08-11-2024 ambulatory Karon NOVAK Facility:[facility] Start: 08-07-2024 End: 08-07-2024 Departed Referred Carlos Cavazos -[place] [employer] Start: 08-07-2024 Registered Referred Carlos Reeder [place] [employer] Start: 08-07-2024 End: 08-07-2024 ambulatory Carlos NOVAK Facility:[facility] Start: 08-04-2024 End: 08-04-[address] Monika Staley MD Work Phone: [facility] Work Phone: Start: 08-04-2024 End: 08-04-2024 Departed Referred Carlos Cavazos -[place] [employer] Start: 08-04-2024 Registered Referred [facility] [employer] Start: 08-04-2024 End: 08-04-2024 ambulatory Carlos Cavazos OLS Facility:[facility] Start: 07-31-2024 End: 07-31-[address] Monika Staley MD Work Phone: [facility] Work Phone: Start: 07-31-2024 End: 07-31-2024 Departed Referred Karon Corrales MD -[place] [facility] [employer] Start: 07-31-2024 Registered Referred Karon casillas MD -[place] [facility] [employer] Start: 07-31-2024 End: 07-31-2024 ambulatory Karon NOVAK Facility:[facility] Start: 07-28-2024 End: 07-28-[address] Monika Staley MD Work Phone: [facility] Work Phone: Start: 07-28-2024 End: 07-28-2024 Departed Referred Karon Corrales MD -[place] [facility] [employer] Start: 07-28-2024 Registered Referred Karon casillas MD -[place] [facility] [employer] Start: 07-28-2024 End: 07-28-2024 ambulatory Karon NOVAK Facility:[facility] Start: 07-25-2024 End: 07-25-[address] Monika Staley MD Work Phone: [facility] Work Phone: Start: 07-25-2024 End: 07-25-2024 Departed Referred Carlos Morenouary [employer] Start: 07-25-2024 Registered Referred Carlos Cavazos - [place] [facility] [employer] Start: 07-24-2024 End: 07-25-[address] Monika Staley MD Work Phone: [facility] Work Phone: Start: 07-24-2024 End: 07-24-2024 Departed Referred Karon Corrales MD -[place] [employer] Start: 07-24-2024 Registered Referred Karon casillas MD -[place] [facility] [employer] Start: 07-24-2024 End: 07-24-2024 ambulatory Karon Farmera OLS Facility:[facility] Start: 07-21-2024 End: 07-21-[address] Monika Staley MD Work Phone: [facility] Work Phone: Start: 07-21-2024 End: 07-21-2024 Departed Referred Karon Corrales MD -[place] [facility] [employer] Start: 07-21-2024 Registered Referred Karon casillas MD -[place] [employer] Start: 07-21-2024 End: 07-21-2024 ambulatory Carlavilmanoe Delacruzshellie OLS Facility:[facility] Start: 07-17-2024 End: 07-17-[address] Monika Staley MD Work Phone: [facility] Work Phone: Start: 07-17-2024 End: 07-17-2024 Departed Referred Karon Corrales MD -[place] [facility] [employer] Start: 07-17-2024 Registered Referred Karon casillas MD -[place] [facility] [employer] Start: 07-17-2024 End: 07-17-2024 ambulatory Carlavilmanoe Hernandezelismingmarlenea OLS Facility:[facility] Start: 07-14-2024 End: 07-14-[address] Monika Staley MD Work Phone: [facility] Work Phone: Start: 07-14-2024 End: 07-14-2024 Departed Referred Carlos Cavazos [facility] [employer] Start: 07-14-2024 Registered Referred Carlos Cavazos - [place] [employer] Start: 07-14-2024 End: 07-14-2024 ambulatory Carlos NOVAK Facility:[facility] Start: 07-11-2024 End: 07-11-[address] Monika Staley MD Work Phone: [facility] Work Phone: Start: 07-11-2024 End: 07-11-2024 Departed Referred Carlos Cavazos -[place] [employer] Start: 07-11-2024 Registered Referred Carlos Cavazos - [place] [employer] Start: 07-11-2024 End: 07-11-2024 ambulatory Carlos NOVAK Facility:[facility] Start: 07-07-2024 End: 07-07-[address] Monika Staley MD Work Phone: [facility] Work Phone: Start: 07-07-2024 End: 07-07-2024 Departed Referred Karon Corrales MD -[place] [employer] [employer] Start: 07-07-2024 [facility] Start: 07-07-2024 End: 07-07-2024 ambulatory Karon NOVAK Facility:[facility] Start: 07-03-2024 End: 07-03-[address] Monika Staley MD Work Phone: [facility] Work Phone: Start: 07-03-2024 End: 07-03-2024 Departed Referred Kvng Crisostomo MD -[place] [employer] Start: 07-03-2024 Registered Referred Kvng Crisostomo MD -[place] [employer] [employer] Start: 07-03-2024 End: 07-03-2024 ambulatory Kvng NOVAK Facility:[facility] Start: 06-30-2024 End: 06-30-[address] Monika Staley MD Work Phone: [facility] Work Phone: Start: 06-30-2024 End: 06-30-2024 Departed Referred Kvng Crisostomo MD -[place] [employer] Start: 06-30-2024 Registered Referred Kvng Crisostomo MD -[place] [employer] Start: 06-30-2024 End: 06-30-2024 ambulatory Kvng NOVAK Facility:[facility] Start: 06-26-2024 ambulatory Kvng NOVAK Fac ility:[facility] Start: 06-26-2024 Registered Referred Kvng Crisostomo MD -[place] [employer] Start: 06-23-2024 End: 06-23-[address] Monika Staley MD Work Phone: [facility] Work Phone: Start: 06-23-2024 End: 06-23-2024 Departed Referred Carlos Cavazos -[place] [employer] Start: 06-23-2024 Registered Referred Carlos Cavazos - [place] [employer] Start: 06-23-2024 End: 06-23-2024 ambulatory Carlos NOVAK Facility:[facility] Start: 06-19-2024 End: 06-19-[address] Monika Staley MD Work Phone: [facility] Work Phone: Start: 06-19-2024 End: 06-19-2024 Departed Referred Kvng Crisostomo MD -[place] [employer] Start: 06-19-2024 Registered Referred Kvng Crisostomo MD -[place] [employer] Start: 06-19-2024 End: 06-19-2024 ambulatory Kvng NOVAK Facility:[facility] Start: 06-16-2024 End: 06-16-[address] Monika Staley MD Work Phone: [facility] Work Phone: Start: 06-16-2024 End: 06-16-2024 Departed Referred Kvng Crisostomo MD -[place] [employer] Start: 06-16-2024 Registered Referred Kvng Crisostomo MD -[place] [employer] Start: 06-16-2024 End: 06-16-2024 ambulatory Kvng NOVAK Facility:[facility] Start: 06-12-2024 End: 06-12-[address] Monika Staley MD Work Phone: [facility] Work Phone: Start: 06-12-2024 End: 06-12-2024 Departed Referred Kvng Crisostomo MD -[place] [employer] Start: 06-12-2024 Registered Referred Kvng Crisostomo MD -[place] [employer] Start: 06-12-2024 End: 06-12-2024 ambulatory Kvng NOVAK Facility:[facility] Start: 06-09-2024 End: 06-09-[address] Monika Staley MD Work Phone: [facility] Work Phone: Start: 06-09-2024 End: 06-09-2024 [place]ed Ref[place] [facility] Start: 06-09-2024 Registered Referred Carlos Cavazos - [place] [employer] Start: 06-09-2024 End: 06-09-2024 ambulatory Carlos NOVAK Facility:[facility] Start: 06-05-2024 End: 06-05-[address] Monika Staley MD Work Phone: [facility] Work Phone: Start: 06-05-2024 End: 06-05-2024 Departed Referred Kvng Crisostomo MD -[place] [employer] Start: 06-05-2024 End: 06-05-2024 ambulatory Kvng NOVAK Facility:[facility] Start: 06-02-2024 End: 06-02-[address] Monika Staley MD Work Phone: [facility] Work Phone: Start: 06-02-2024 End: 06-02-2024 Departed Referred Kvng Crisostomo MD -[place] [employer] Start: 06-02-2024 Registered Referred Kvng Crisostomo MD -[place] [employer] Start: 06-02-2024 End: 06-02-2024 ambulatory Kvng NOVAK Facility:[facility] Start: 05-29-2024 End: 05-29-[address] Monika Staley MD Work Phone: [facility] Work Phone: Start: 05-29-2024 End: 05-29-2024 Departed Referred Kvng Crisostomo MD -[place] [employer] Start: 05-29-2024 Registered Referred Kvng Crisostomo MD -[place] [employer] Start: 05-29-2024 End: 05-29-2024 ambulatory Kvng NOVAK Facility:[facility] Start: 05-26-2024 End: 05-26-[address] Monika Staley MD Work Phone: [facility] Work Phone: Start: 05-26-2024 End: 05-26-2024 Dep[place]ed Ref[place] [facility] [place] [facility] [employer] Start: 05-26-2024 Registered Referred Carlos Reeder [place] [employer] Start: 05-26-2024 End: 05-26-2024 ambulatory Carlos NOVAK Facility:[facility] Start: 05-22-2024 ambulatory Kvng NOVAK Fac ility:[facility] Start: 05-22-2024 Registered Referred Kvng Crisostomo MD -[place] [employer] Start: 05-20-2024 End: 05-20-2024 Departed Referred Kvng Crisostomo MD -[place] [employer] Start: 05-19-2024 End: 05-20-2024 ambulatory Kvng Jonesluis enrique NOVAK Facility:[facility] Start: 05-19-2024 Registered Referred Kvng Crisostomo MD -[place] [employer] Start: 05-15-2024 End: 05-15-2024 Departed Referred Kvng Crisostomo MD -[place] [employer] Start: 05-15-2024 End: 05-15-2024 ambulatory Kvng Andressa NOVAK Facility:[facility] Start: 05-12-2024 End: 05-12-2024 Departed Referred Carlos Cavazos -[place] [employer] Start: 05-12-2024 End: 05-12-2024 ambulatory Carlos NOVAK Facility:[facility] Start: 05-09-2024 End: 05-09-2024 Departed Referred Kvng Crisostomo MD -[place] [employer] Start: 05-09-2024 End: 05-09-2024 ambulatory Kvng Jonesluis enrique NOVAK Facility:[facility] Start: 05-08-2024 End: 05-08-2024 Departed Referred Kvng Crisostomo MD -[place] [employer] Start: 05-08-2024 End: 05-08-2024 ambulatory Kvng Jonesluis enrique NOVAK Facility:[facility] Start: 05-05-2024 End: 05-05-2024 Departed Referred Kvng Crisostomo MD -[place] [employer] Start: 05-05-2024 End: 05-05-2024 ambulatory Kvng Jonesluis enrique NOVAK Facility:[facility] Start: 05-01-2024 End: 05-01-2024 Departed Referred Kvng Crisostomo MD -[place] [employer] Start: 05-01-2024 End: 05-01-2024 ambulatory Vicenterocio Jonesluis enrique NOVAK Facility:[facility] Start: 04-28-2024 End: 04-28-2024 Departed Referred Carlos Cavazos -[place] [employer] Start: 04-28-2024 End: 04-28-2024 ambulatory Carlos NOVAK Facility:[facility] Start: 04-24-2024 End: 04-24-2024 Departed Referred Kvng Crisostomo MD -[place] [employer] Start: 04-24-2024 End: 04-24-2024 ambulatory Avisgerson Andressa NOVAK Facility:[facility] Start: 04-21-2024 End: 04-21-2024 Departed Referred Carlos Cavazos [place] [employer] Start: 04-21-2024 End: 04-21-2024 ambulatory Carlos NOVAK Facility:[facility] Start: 04-17-2024 ambulatory Kvng Jonesluis enrique NOVAK Fac ility:[facility] Start: 04-17-2024 Registered Referred Kvng Crisostomo MD -[place] [employer] Start: 04-14-2024 ambulatory Kvng Andressa NOVAK Fac ility:[facility] Start: 04-14-2024 Registered Referred Kvng Crisostomo MD -[place] [employer] Start: 04-10-2024 End: 04-10-2024 Departed Referred Kvng Crisostomo MD -[place] [employer] Start: 04-10-2024 End: 04-10-2024 ambulatory Vicenterocio Andressa NOVAK Facility:[facility] Start: 04-07-2024 End: 04-07-2024 Departed Referred Carlos Cavazos [place] [employer] Start: 04-07-2024 End: 04-07-2024 ambulatory Carlos NOVAK Facility:[facility] Start: 04-04-2024 ambulatory Kvng Jonesluis enrique NOVAK Fac ility:[facility] Start: 04-04-2024 Registered Ref[place] [employer] Start: 03-31-2024 End: 03-31-2024 Departed Ref[place] [facility]rlos [facility] [place] [employer] Start: 03-31-2024 End: 03-31-2024 ambulatory Carlos NOVAK Facility:[facility] Start: 03-27-2024 End: 03-27-2024 [facility] Start: 03-27-2024 End: 03-27-2024 ambulatory [facility] [place] [facility] Facility:[facility] Start: 03-24-2024 End: 03-24-2024 Departed Referred Kvng Crisostomo MD -[place] [employer] Start: 03-24-2024 End: 03-24-2024 ambulatory Kvng NOVAK Facility:[facility] Start: 03-20-2024 End: 03-20-2024 Departed Referred [place] [facility] [employer] Start: 03-20-2024 End: 03-20-2024 ambulatory [facility] [place] [facility] Facility:[facility] Start: 03-19-2024 End: 03-19-2024 Departed Referred Kvng Crisostomo MD -[place] [employer] Start: 03-19-2024 End: 03-19-2024 ambulatory Kvng NOVAK Facility:[facility] Start: 03-18-2024 End: 03-18-2024 Departed Referred [place] [facility] [employer] Start: 03-18-2024 End: 03-18-2024 ambulatory [facility] [place] [facility] Facility:[facility] Start: 03-17-2024 End: 03-17-2024 Departed Referred [place] [facility] [employer] Start: 03-17-2024 End: 03-17-2024 ambulatory [facility] [place] [facility] Facility:[facility] Start: 03-14-2024 End: 03-14-2024 Departed Referred Carlos Cavazos -[place] [employer] Start: 03-14-2024 End: 03-14-2024 ambulatory Monika Staley Facility:[facility] Start: 03-13-2024 End: 03-13-2024 Departed Referred [place] [facility] [employer] Start: 03-13-2024 End: 03-13-2024 ambulatory [facility] [place] [facility] Facility:[facility] Start: 03-10-2024 End: 03-10-2024 ambulatory [facility] [place] [facility] Facility:[facility] Start: 03-06-2024 End: 03-06-2024 ambulatory [facility] [place] [facility] Facility:[facility] Start: 03-03-2024 End: 03-03-2024 ambulatory [facility] [place] [facility] Facility:[facility] Start: 02-28-2024 End: 02-28-2024 ambulatory [facility] [place] [facility] Facility:[facility] Start: 02-25-2024 End: 02-25-2024 ambulatory Shiela Luís Facility:[facility] Start: 02-21-2024 End: 02-21-2024 ambulatory [facility] [place] [facility] Facility:[facility] Start: 02-18-2024 End: 02-18-2024 ambulatory [facility] [place] [facility] Facility:[facility] Start: 02-14-2024 End: 02-14-2024 ambulatory [facility] [place] [facility] Facility:[facility] Start: 02-12-2024 End: 02-12-2024 ambulatory Shiela Luís Facility:[facility] Start: 02-11-2024 End: 02-11-2024 ambulatory [facility] Facility:[facility] Start: 02-08-2024 End: 02-08-2024 ambulatory Carlos NOVAK Facility:[facility] Start: 02-07-2024 End: 02-07-2024 ambulatory Carlos NOVAK Facility:[facility] Start: 02-04-2024 End: 02-04-2024 ambulatory Carlos NOVAK Facility:[facility] Start: 02-01-2024 ambulatory Carlos Cavazos OLS Faci lity:[facility] Start: 01-30-2024 End: 01-30-2024 ambulatory Carlos NOVAK Facility:[facility] Start: 01-29-2024 End: 01-29-2024 ambulatory [facility] Facility:[facility] Start: 01-21-2024 End: 01-21-2024 ambulatory Carlos NOVAK Facility:[facility] Start: 01-14-2024 End: 01-14-2024 ambulatory Carlos Lópezsaviri OLS Facility:[facility] Start: 01-11-2024 ambulatory Carlos Lópezsaviri OLS Faci lity:[facility] Start: 01-10-2024 End: 01-10-2024 ambulatory [facility] Facility:[facility] Start: 01-08-2024 End: 01-08-2024 ambulatory Peter Katsaros OLS Facility:[facility] Start: 01-01-2024 End: 01-02-2024 ambulatory Peter Katsaros OLS Facility:[facility] Start: 12-27-2023 End: 12-27-2023 ambulatory Peter Katsaros OLS Facility:[facility] Start: 12-24-2023 End: 12-24-2023 ambulatory Peter Katsaros OLS Facility:[facility] Start: 12-17-2023 End: 12-17-2023 ambulatory Peter Katsaros OLS Facility:[facility] Start: 12-04-2023 End: 12-04-2023 ambulatory Peter Katsaros OLS Facility:[facility] Start: 12-03-2023 End: 12-03-2023 ambulatory Peter Katsaros OLS Facility:[facility] Start: 11-30-2023 End: 11-30-2023 ambulatory Peter Katsaros OLS Facility:[facility] Start: 11-27-2023 End: 11-27-2023 ambulatory Peter Katsaros OLS Facility:[facility] Start: 11-26-2023 End: 11-26-2023 ambulatory Peter Katsaros OLS Facility:[facility] Start: 11-23-2023 End: 11-23-2023 ambulatory Peter Katsaros OLS Facility:[facility] Start: 11-21-2023 End: 11-21-2023 ambulatory Peter Katsaros OLS Facility:[facility] Start: 11-19-2023 End: 11-19-2023 ambulatory Peter Katsaros OLS Facility:[facility] Start: 09-13-2023 End: 09-13-2023 ambulatory [facility] Start: 09-13-2023 End: 09-13-2023 Office outpatient visit 25 minutes Rebecca Buck MD Work Phone: [facility] Comment on above: Left flank pain (Christina magui Dx); BPH with urinary obstruction; History of kidney stones Start: 09-06-2023 End: 09-07-2023 ambulatory REBECCA [facility] Start: 09-06-2023 End: 09-06-2023 Subsequent hospital visit by physician Rebecca Buck MD Work Phone: [facility] Comment on above: Left flank pain; Calculus of ureter Start: 08-31-2023 ambulatory Eloise Stern RN [facility] Clinical Communication Start: 08-31-2023 Patient encounter procedure Eloise Stern RN [facility] Clinical Communication Start: 08-21-2023 Telephone encounter Rebecca Buck MD Work Phone: [facility] Clinical Communication Comment on above: CT appt Boaz advice Start: 08-21-2023 Registered Referred [facility] [employer] [facility] Start: 08-13-2023 End: 08-13-2023 ambulatory [facility] Start: 08-13-2023 End: 08-13-2023 Office outpatient new 45 minutes Rebecca Buck MD Work Phone: [facility] Comment on above: Left flank pain (Christina magui Dx); Calculus of ureter; Disease of prostate; BPH with urinary obstruction Start: 08-03-2023 End: 08-03-2023 ambulatory [facility] Work Phone: Start: 08-03-2023 End: 08-03-2023 Departed Referred [facility] [employer] [facility] Start: 07-20-2023 End: 07-20-2023 ambulatory [facility] Work Phone: Start: 07-20-2023 End: 07-20-2023 Departed Referred [facility] [employer] [facility] Start: 07-20-2023 Registered Referred [facility] [employer] [facility] Start: 07-18-2023 End: 07-18-2023 ambulatory [facility] Work Phone: Start: 07-18-2023 End: 07-18-2023 Departed Referred [facility] [employer] [facility] Start: 07-18-2023 Registered Referred [facility] [employer] [facility] Start: 07-16-2023 End: 07-16-2023 ambulatory [facility] Work Phone: Start: 07-16-2023 End: 07-16-2023 [facility] Start: 07-16-2023 [facility] Start: 07-13-2023 End: 07-13-2023 ambulatory [facility] Work Phone: Start: 07-13-2023 End: 07-13-2023 [facility] Start: 07-13-2023 [facility] Start: 07-12-2023 End: 07-12-2023 ambulatory [facility] Work Phone: Start: 07-12-2023 End: 07-12-2023 [facility] Start: 07-12-2023 [facility] Start: 07-05-2023 End: 07-05-2023 ambulatory [facility] Work Phone: Start: 07-05-2023 End: 07-05-2023 [facility] Start: 07-05-2023 [facility] Start: 07-02-2023 [facility] Start: 06-28-2023 End: 06-28-2023 ambulatory [facility] Work Phone: Start: 06-28-2023 End: 06-28-2023 [facility] Start: 06-28-2023 [facility] Start: 06-25-2023 Telephone encounter Rebecca Buck MD Work Phone: [facility] Start: 06-25-2023 End: 06-25-2023 ambulatory [facility] Work Phone: Start: 06-25-2023 End: 06-25-2023 Departed Referred [facility] [employer] Start: 06-25-2023 Registered Referred [facility] [employer] Start: 06-21-2023 End: 06-21-2023 ambulatory [facility] Work Phone: Start: 06-21-2023 End: 06-21-2023 Departed Referred [facility] [employer] Start: 06-21-2023 Registered Referred [facility] [employer] Start: 06-13-2023 End: 06-13-2023 ambulatory [facility] Work Phone: Start: 06-13-2023 End: 06-13-2023 [facility] Start: 06-06-2023 End: 06-06-2023 ambulatory [facility] Work Phone: Start: 06-06-2023 End: 06-06-2023 [facility] Start: 06-06-2023 Registered Referred [facility] [employer] Start: 05-23-2023 End: 05-23-2023 ambulatory [facility] Work Phone: Start: 05-23-2023 End: 05-23-2023 Departed Referred [facility] [employer] Start: 05-09-2023 End: 05-09-2023 Departed Referred [facility] [employer] Start: 05-09-2023 Registered Referred [facility] [employer] Start: 04-23-2023 End: 04-23-2023 Departed Referred [facility] [employer] Start: 04-09-2023 End: 04-09-2023 ambulatory [facility] Work Phone: Start: 04-09-2023 End: 04-09-2023 [facility] Start: 04-09-2023 Registered Referred [facility] [employer] Start: 04-02-2023 End: 04-02-2023 ambulatory [facility] Work Phone: Start: 04-02-2023 End: 04-02-2023 [facility] Start: 04-02-2023 [facility] Start: 03-26-2023 End: 03-26-2023 ambulatory [facility] Work Phone: Start: 03-26-2023 End: 03-26-2023 [facility] Start: 03-26-2023 [facility] Start: 03-22-2023 End: 03-22-2023 ambulatory [facility] Work Phone: Start: 03-22-2023 End: 03-22-2023 [facility] Start: 03-22-2023 [facility] Start: 03-08-2023 End: 03-08-2023 ambulatory [facility] Work Phone: Start: 03-08-2023 End: 03-08-2023 [facility] Start: 02-22-2023 End: 02-22-2023 ambulatory [facility] Work Phone: Start: 02-22-2023 End: 02-22-2023 [facility] [employer] [facility] Start: 02-22-2023 [facility] Start: 02-15-2023 End: 02-15-2023 ambulatory [facility] Work Phone: Start: 02-15-2023 End: 02-15-2023 [facility] Start: 02-15-2023 [facility] Start: 02-08-2023 End: 02-08-2023 ambulatory [facility] Work Phone: Start: 02-08-2023 End: 02-08-2023 Departed Referred [facility] Start: 01-31-2023 End: 01-31-2023 ambulatory [facility] Work Phone: Start: 01-31-2023 End: 01-31-2023 Departed Referred [facility] Start: 01-31-2023 Registered Referred [facility] [employer] Start: 01-29-2023 End: 01-29-2023 [facility] Start: 01-29-2023 Registered Referred [facility] [employer] Start: 01-26-2023 End: 01-26-2023 [facility]ed [facility] Start: 01-26-2023 Registered Referred [facility] [employer] Start: 01-24-2023 End: 01-24-2023 Departed Referred [facility] [employer] Start: 01-24-2023 Registered Referred [facility] [employer] Start: 01-22-2023 End: 01-22-2023 ambulatory [facility] Work Phone: Start: 01-22-2023 End: 01-22-2023 [facility]ed [facility] Start: 01-22-2023 Registered Referred [facility] [employer] Start: 01-10-2023 End: 01-10-2023 ambulatory [facility] Work Phone: Start: 01-10-2023 End: 01-10-2023 [facility]ed [facility] Start: 01-10-2023 [facility] Start: 12-27-2022 End: 12-27-2022 ambulatory [facility] Work Phone: Start: 12-27-2022 End: 12-27-2022 [facility]ed [facility] Start: 12-27-2022 Registered Referred [facility] Start: 12-21-2022 End: 12-21-2022 ambulatory [facility] Work Phone: Start: 12-21-2022 End: 12-21-2022 [facility]ed [facility] Start: 12-21-2022 [facility]istered [facility] Start: 12-14-2022 End: 12-14-2022 ambulatory [facility] Work Phone: Start: 12-14-2022 End: 12-14-2022 [facility]ed [facility] Start: 12-14-2022 [facility] Start: 12-07-2022 End: 12-07-2022 ambulatory [facility] Work Phone: Start: 12-07-2022 End: 12-07-2022 [facility]ed [facility] Start: 12-07-2022 [facility]istered [facility] Start: 11-24-2022 End: 11-24-2022 ambulatory [facility] Work Phone: Start: 11-24-2022 End: 11-24-2022 Dep[facility]ed [facility] Start: 11-24-2022 Registered Referred [facility] [employer] Start: 11-23-2022 End: 11-23-2022 ambulatory [facility] Work Phone: Start: 11-23-2022 End: 11-23-2022 Departed [facility] Start: 11-23-2022 Registered [facility]erred [facility] [employer] Start: 11-22-2022 End: 11-22-2022 ambulatory [facility] Work Phone: Start: 11-22-2022 End: 11-22-2022 Departed Referred [facility] [employer] Start: 11-22-2022 Registered Referred [facility] [employer] Start: 11-09-2022 End: 11-09-2022 ambulatory [facility] Work Phone: Start: 11-09-2022 End: 11-09-2022 Dep[facility]ed [facility] Start: 11-09-2022 Registered Referred [facility] [employer] Start: 10-26-2022 End: 10-26-2022 Dep[facility]ed [facility] Start: 10-26-2022 Registered Referred [facility] [employer] Start: 10-12-2022 End: 10-12-2022 ambulatory [facility] Work Phone: Start: 10-12-2022 End: 10-12-2022 Departed Referred [facility] [employer] Start: 10-12-2022 Registered Referred [facility] [employer] Start: 10-05-2022 End: 10-05-2022 Departed Referred [facility] [employer] Start: 10-05-2022 Registered Referred [facility] [employer] Start: 09-28-2022 End: 09-28-2022 ambulatory [facility] Work Phone: Start: 09-28-2022 End: 09-28-2022 Departed Referred [facility] [employer] Start: 09-14-2022 End: 09-14-2022 Departed Referred [facility] Start: 08-31-2022 End: 08-31-2022 Dep[facility]ed [facility] Start: 08-31-2022 Registered Referred [facility] [employer] Start: 08-23-2022 End: 08-23-2022 ambulatory [facility] Work Phone: Start: 08-23-2022 End: 08-23-2022 Departed Referred [facility] [place] [facility] Start: 08-23-2022 [facility] [place] [facility] [employer] Start: 08-17-2022 End: 08-17-2022 ambulatory [facility] Work Phone: Start: 08-17-2022 End: 08-17-2022 Departed Referred [facility] [place] [facility] [employer] Start: 08-17-2022 Registered Referred [facility] [place] [facility] [employer] Start: 08-14-2022 End: 08-14-2022 ambulatory [facility] Work Phone: Start: 08-14-2022 End: 08-14-2022 Departed Referred [facility] [place] [facility] [employer] Start: 08-14-2022 Registered Referred [facility] [place] [facility] Start: 07-31-2022 End: 07-31-2022 ambulatory [facility] Work Phone: Start: 07-31-2022 End: 07-31-2022 Departed Referred [facility] [employer] Start: 07-31-2022 Registered Referred [facility] [place] [facility] [employer] Start: 07-24-2022 End: 07-24-2022 ambulatory [facility] Work Phone: Start: 07-24-2022 End: 07-24-2022 Departed Referred [facility] [place] [facility] [employer] Start: 07-24-2022 Registered [facility] [place] [facility] [employer] Start: 07-20-2022 End: 07-20-2022 Departed Referred [facility] [place] [facility] [employer] Start: 07-20-2022 Registered [facility] [place] [facility] [employer] Start: 07-17-2022 End: 07-17-2022 Departed Referred [facility] [employer] Start: 07-17-2022 Registered Referred [facility] [place] [facility] Start: 07-11-2022 Registered [facility] [place] [facility] [employer] Start: 07-10-2022 End: 07-10-2022 ambulatory [facility] Work Phone: Start: 07-10-2022 End: 07-10-2022 Dep[facility]ed [facility] Start: 07-10-2022 [facility] Start: 07-03-2022 End: 07-03-2022 ambulatory [facility] Work Phone: Start: 07-03-2022 End: 07-03-2022 Dep[facility]ed [facility] Start: 07-03-2022 Registered [facility] Start: 06-27-2022 End: 06-27-2022 ambulatory [facility] Work Phone: Start: 06-27-2022 End: 06-27-2022 Dep[facility]ed [facility] Start: 06-27-2022 Registered [facility] Start: 06-13-2022 End: 06-13-2022 ambulatory [facility] Work Phone: Start: 06-13-2022 End: 06-13-2022 Dep[facility]ed [facility] Start: 06-13-2022 Registered [facility]erred [facility] [place] [facility] Start: 06-06-2022 End: 06-06-2022 ambulatory [facility] Work Phone: Start: 06-06-2022 End: 06-06-2022 Departed [facility] Start: 06-06-2022 Registered Referred [facility] Start: 05-30-2022 End: 05-30-2022 ambulatory [facility] Work Phone: Start: 05-30-2022 End: 05-30-2022 Departed Referred [facility] [employer] Start: 05-30-2022 Registered Referred [facility] [employer] Start: 05-16-2022 End: 05-16-2022 ambulatory [facility] Work Phone: Start: 05-16-2022 End: 05-16-2022 Departed [facility] Start: 05-16-2022 Registered [facility] Start: 05-02-2022 End: 05-02-2022 ambulatory [facility] Work Phone: Start: 05-02-2022 End: 05-02-2022 Departed [facility] Start: 05-02-2022 Registered [facility] Start: 04-27-2022 End: 04-27-2022 ambulatory [facility] Work Phone: Start: 04-27-2022 End: 04-27-2022 Departed [facility] Start: 04-27-2022 Registered [facility] Start: 04-26-2022 End: 04-26-2022 ambulatory [facility] Work Phone: Start: 04-26-2022 End: 04-26-2022 Dep[facility]ed [facility] Start: 04-11-2022 End: 04-11-2022 ambulatory [facility] Work Phone: Start: 04-11-2022 End: 04-11-2022 Departed [facility] Start: 03-28-2022 End: 03-28-2022 Departed [facility] [employer] Start: 03-28-2022 Registered Referred [facility] Start: 03-23-2022 End: 03-23-2022 [facility] Start: 03-23-2022 [facility] Start: 03-16-2022 End: 03-16-2022 ambulatory [facility] Work Phone: Start: 03-16-2022 End: 03-16-2022 Departed Referred [facility] Start: 03-16-2022 [facility] Start: 03-09-2022 End: 03-09-2022 ambulatory [facility] Work Phone: Start: 03-09-2022 End: 03-09-2022 [facility]arted [facility] Start: 03-09-2022 Registered Referred [facility] Start: 03-06-2022 End: 03-06-2022 ambulatory [facility] Work Phone: Start: 03-06-2022 End: 03-06-2022 Departed Referred [facility] Start: 03-06-2022 Registered Referred [facility] Start: 03-02-2022 End: 03-03-2022 Emergency department patient visit UNKNOWN PROVIDER [facility] Start: 03-02-2022 End: 03-02-2022 Emergency department patient visit Lanette Munguia DO Work Phone: [facility] Emergency Dept Comment on above: Fall, initial encoun ter (Primary Dx); Anticoagulated Start: 02-20-2022 End: 02-20-2022 Departed [facility] Start: 02-20-2022 Registered Referred [facility] Start: 02-13-2022 End: 02-13-2022 ambulatory [facility] Work Phone: Start: 02-13-2022 End: 02-13-2022 [facility] Start: 02-13-2022 [facility] Start: 02-06-2022 End: 02-06-2022 ambulatory [facility] Work Phone: Start: 02-06-2022 End: 02-06-2022 [facility] Start: 02-06-2022 [facility] Start: 01-30-2022 End: 01-30-2022 [facility] Start: 01-30-2022 [facility] Start: 01-26-2022 End: 01-26-2022 ambulatory [facility] Work Phone: Start: 01-26-2022 End: 01-26-2022 [facility]ed [facility] Start: 01-26-2022 [facility]istered [facility] Start: 01-19-2022 End: 01-19-2022 ambulatory [facility] Work Phone: Start: 01-19-2022 End: 01-19-2022 [facility] Start: 01-19-2022 [facility]istered [facility] Start: 01-17-2022 ambulatory [facility] Start: 01-10-2022 ambulatory [facility] Start: 01-10-2022 End: 01-10-2022 ambulatory [facility] Work Phone: Start: 01-10-2022 End: 01-10-2022 [facility]ed [facility] Start: 01-10-2022 Registered [facility] Start: 01-06-2022 AUDIT Monika Elias rt Work Phone: [facility] Work Phone: Start: 01-05-2022 End: 01-05-2022 Departed Referred [facility] Start: 01-05-2022 Registered Referred [facility] Start: 12-30-2021 End: 12-30-2021 Departed Referred [facility] Start: 12-30-2021 Registered Referred [facility] Start: 12-28-2021 End: 12-28-2021 ambulatory [facility] Work Phone: Start: 12-28-2021 End: 12-28-2021 Departed Referred [facility] Start: 12-28-2021 Registered Referred [facility] Start: 12-26-2021 End: 12-26-2021 ambulatory [facility] Work Phone: Start: 12-26-2021 End: 12-26-2021 Departed Referred [facility] Start: 12-26-2021 Registered Referred [facility] Start: 12-22-2021 End: 12-22-2021 ambulatory [facility] Work Phone: Start: 12-22-2021 End: 12-22-2021 Departed Referred [facility] Start: 12-22-2021 Registered Referred [facility] Start: 12-22-2021 End: 12-22-2021 [facility] Start: 12-21-2021 End: 12-22-2021 Emergency department patient visit Sharon Olivia MD Work Phone: [facility] Emergency Dept Comment on above: Heel ulceration, lef t, with unspecified severity (HCC) (Primary Dx) Start: 12-19-2021 End: 12-19-2021 ambulatory [facility] Work Phone: Start: 12-19-2021 End: 12-19-2021 [facility] Start: 12-19-2021 [facility] Start: 12-12-2021 End: 12-12-2021 ambulatory [facility] Work Phone: Start: 12-12-2021 End: 12-12-2021 [facility]ed [facility] Start: 12-12-2021 [facility] Start: 12-08-2021 End: 12-08-2021 ambulatory [facility] Work Phone: Start: 12-08-2021 End: 12-08-2021 [facility]ed [facility] Start: 12-08-2021 [facility] Start: 12-05-2021 End: 12-05-2021 ambulatory [facility] Work Phone: Start: 12-05-2021 End: 12-05-2021 [facility]ed [facility] Start: 12-05-2021 [facility] Start: 12-01-2021 End: 12-01-2021 [facility]ed [facility] Start: 12-01-2021 [facility]istered [facility] Start: 11-28-2021 End: 11-28-2021 [facility]ed [facility] Start: 11-28-2021 [facility] Start: 11-25-2021 Rx Renewal Monika Elias rt Work Phone: [id number] Work Phone: Start: 11-23-2021 End: 11-23-2021 Departed Referred [facility] Start: 11-23-2021 [facility] Start: 11-22-2021 End: 11-22-2021 Departed Referred [facility] [employer] Start: 11-22-2021 Registered Referred [facility] Start: 11-21-2021 End: 11-21-2021 Departed Referred [facility] Start: 11-15-2021 AUDIT Monika Elias rt Work Phone: [id number] Work Phone: Start: 11-14-2021 End: 11-14-2021 Departed Referred [facility] [employer] Start: 11-14-2021 [facility] Start: 11-08-2021 End: 11-08-2021 Departed Referred [facility] Start: 11-08-2021 Registered [facility] Start: 11-04-2021 End: 11-04-2021 Departed Referred [facility] Start: 11-04-2021 Registered Referred [facility] Start: 10-31-2021 End: 11-01-2021 Emergency department [facility] Start: 10-31-2021 End: 11-01-2021 Emergency department patient visit Dante Kim MD Work Phone: [facility] Emergency Dept Comment on above: Other fatigue (Prima ry Dx) Start: 10-31-2021 End: 10-31-2021 Departed Referred [facility] Start: 10-21-2021 End: 10-29-2021 Evaluation and management of inpatient UNKNOWN PROVIDER [employer] [facility] Start: 10-21-2021 End: 10-29-2021 Evaluation and management of inpatient Lisa Miguel Angel DO Work Phone: [facility]G Comment on above: Leg swelling (Primar y Dx); Acute deep vein thrombosis (DVT) of proximal vein of lower extremity, unspecified laterality (HCC) Start: 10-20-2021 End: 10-20-2021 Departed Referred [facility] [employer] Start: 10-17-2021 Telephone encounter Nicole davis MD Work Phone: [facility] Comment on above: Missed Appointment Start: 09-19-2021 End: 09-19-2021 Departed Referred [facility] [employer] Start: 11-02-2020 AUDIT Monika Elias rt Work Phone: [facility] Work Phone: Start: 10-27-2020 AUDIT Monika Elias rt Work Phone: [facility] Work Phone: Start: 07-13-2020 Patient encounter procedure Monika Staley [facility] Phys[facility] Work Phone: Start: 04-13-2020 Patient encounter procedure Wing Ritter [facility] Work Phone: Start: 04-07-2020 Patient encounter procedure Wing Ritter [facility] Work Phone: Start: 03-18-2020 Patient encounter procedure Wing Ritter [facility] Work Phone: Start: 01-20-2020 Patient encounter procedure Monika Staley MD, [facility] Work Phone: Start: 11-13-2019 End: 11-13-2019 Subsequent hospital visit by physician Desmond [facility] Radiology Comment on above: Non-pressure chronic ulcer left lower leg, 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] Start: 11-06-2019 Patient encounter procedure Monika Staley MD, [facility] Work Phone: Start: 06-18-2019 End: 06-18-2019 Subsequent hospital visit by physician Sarika Salas Work Phone: [facility] Start: 06-11-2019 End: 06-11-2019 Subsequent hospital visit by physician Sairka Salas Work Phone: [facility] Procedures Date Procedure Procedure Detail [...] 12-22-2021 Basic metabolic pane l calcium total Henry LUI Work Phone: Start: 12-22-2021 C-reactive protein Henry LUI Work Phone: Start: 12-22-2021 COVID-19, FLU A/B, A ND RSV COMBO Henry LUI Work Phone: Start: 12-22-2021 Radex foot complete minimum 3 views Henry LUI Work Phone: Start: 11-01-2021 Urnls dip stick/tabl [...] Start: 10-26-2021 Electroencephalogram w/rec awake&asleep Sarina Pineda [employer] PROFESSIONAL - [employer] Work Phone: Start: 10-26-2021 Ct head/brain w/o co ntrast material Sarina Pineda [employer] HE[employer] PROFESSIONAL - [employer]DE[employer] 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 Work Phone: Start: 10-26-2021 Prothrombin time Andres Sheridan MD Work Phone: Start: 10-25-2021 Speech and language therapy regime Sarina Pineda [employer] HE[employer] PROFESSIONAL - [employer]DE[employer] OPERATOR Work Phone: Start: 10-25-2021 Prothrombin time Andres [...] Blood count reticulo cyte automated Ellen Scherer [employer] HEALTH PROFESSIONAL - [employer]ANDE[employer] OPERATOR Work Phone: Start: 10-21-2021 C-reactive protein Doloresua juan c Scherer [employer] HEALTH PROFESSIONAL - [employer]ANDEM OPERATOR Work Phone: Start: 10-21-2021 Non-invas physiologi c std extremity art 2 level Shruthi Malik [employer] HEALTH PROFESSIONAL - [employer]DE[employer] OPERATOR Work Phone: Start: 10-21-2021 Radex calcaneus mini mum 2 views Shruthi Malik [employer]IED HEALTH PROFESSIONAL - [employer]ANDEM OPERATOR Work Phone: Start: 10-21-2021 Dup-scan xtr veins [...] Comment: Speci men Type: BLOOD SPECIMENOrdering Facility: [facility] Address: [address] [place] [address] Performed By: #### T SCR ####[facility] BLOOD BANKCLIA [id number] [address] Start: 08-04-2021 Antibody screen Comment on above: Order Comment: Speci men Type: BLOOD SPECIMENOrdering Facility: [facility] Address: [address] [place] [address] Performed By: #### T SCR ####[facility] BLOOD BANKCLIA [id number] [address] Start: 08-01-2021 Antibody screen Comment on above: Order Comment: Speci men Type: BLOOD SPECIMENOrdering Facility: [facility] Address: [address] [place] [address] Performed By: #### T SCR ####[facility] BLOOD BANKCLIA [id number] [address] Start: 06-07-2021 Antibody screen Comment on above: Order Comment: Speci men Type: BLOOD SPECIMEN Performed By: #### T SCR ####[facility] BLOOD BANKCLIA [id number] [address] Start: 09-02-2020 Lipid 1996 panel - S bradly or Plasma Rebecca Buck MD Work Phone: Start: 04-07-2020 Echocardiography Wing Ritter Start: 11-13-2019 Radiologic examinati on tibia & fibula 2 views Soheila Lewis Work Phone: Hernia repair Monika Elias rt History of Cholecystotomy An yvette Siri Eliasrt History of Creation Of Subdural-Peritoneal CSF Shunt Shiela Luís History 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 Placement Shiela Luís Urine culture Plan of Treatment Date Care Activity Detail Author Start: 09-22-2026 DTaP/Tdap/Td vaccine (2 - Td or Tdap) DTaP/Tdap/Td vaccine (2 - Td or Tdap) [facility] Start: 09-22-2026 DTaP/Tdap/Td vaccine (2 - Td) DTaP/Tdap/Td vaccine (2 - Td) [facility] Work Phone: Start: 09-22-2026 DTaP/Tdap/Td Vaccine s (2 - Td or Tdap) DTaP/Tdap/Td Vaccines (2 - Td or Tdap) [facility] Start: 09-02-2025 Lipid panel Lipid Panel [facility] Start: 08-22-2024 DIABETES SCREEN DIABETES SCREEN [facility] Start: 12-04-2023 Lipid panel [facility]ids [facility] [facility] Start: 12-04-2023 Lipid screen Lipid screen [facility] Work Phone: Start: 09-13-2023 End: 09-13-2023 Patient encounter procedure 09/13/2023 11:30 AM EDT Office Visit [facility] [address] [phone] Rebecca Buck MD 201 [facility] 3 [place] [address] [facility] Start: 08-31-2023 End: 08-31-2023 Patient encounter procedure 08/31/2023 9:30 AM EDT Appointment [facility] [address] [place] [phone] Rebecca Buck MD [address] [facility] Start: 08-13-2023 End: 08-12-2024 Basic metabolic 1998 panel - Serum or Plasma Basic metabolic panel Lab Routine Calculus of ureter Expected: 08/13/2023 (Approximate), Expires: 08/12/2024 [facility] Comment on above: Expected: 08/13/2023 (Approximate), Expires: 08/12/2024 Start: 08-13-2023 End: 08-12-2024 CT Abdomen WO contrast CT abdomen pelvis wo IV contrast Imaging Routine Left flank pain Calculus of ureter Expected: 08/13/2023, Expires: 08/12/2024 [facility] Comment on above: Expected: 08/13/2023 , Expires: 08/12/2024 Start: 08-13-2023 End: 02-12-2024 PSA, Monitoring ([facility]) PSA, Monitoring ([facility]) Lab Routine Disease of prostate Expected: 08/13/2023 (Approximate), Expires: 02/12/2024 [facility] Work Phone: Comment on above: Expected: 08/13/2023 (Approximate), Expires: 02/12/2024 Start: 08-13-2023 End: 08-13-2023 Patient encounter procedure 08/13/2023 10:00 AM EDT Office Visit [facility] [address] [place] [phone] Rebecca Buck MD [address] [place] [address] [facility] Start: 07-17-2023 Bacteria identified in Urine by Culture [facility] Start: 07-17-2023 [facility] Start: 07-16-2023 Measurement of substance [facility] Start: 05-07-2023 Medicare Advantage A nnual Wellness Visit Medicare Advantage Annual Wellness Visit [facility] Start: 03-02-2023 Creatinine measurement Creatinine Le carmela [facility] Start: 03-02-2023 Potassium measurement Potassium Leve l [facility] Start: 08-22-2022 Diabetes mellitus screening Diabetes Screening [facility] Start: 01-05-2022 Influenza vaccination [facility] Start: 12-23-2021 EPV, Provider: Wing Ritter, Status: Pen, Time: 9:30 AM EPV, Provider: Wing Ritter, Status: Pen, Time: 9:30 AM [facility] Work Phone: Start: 12-05-2021 Influenza vaccination Flu vaccine (# 1) [facility] Start: 12-05-2021 Blood chemistry [facility] Work Phone: Start: 12-05-2021 Complete blood count [facility] Work Phone: Start: 12-05-2021 [facility] Work Phone: Start: 12-01-2021 [facility] Work Phone: Start: 08-05-2021 COVID-19 VACCINE (4 - Booster for Moderna series) COVID-19 VACCINE (4 - Booster for Moderna series) [facility] Start: 08-05-2021 COVID-19 Vaccine (4 - Booster for Pfizer series) COVID-19 Vaccine (4 - Booster for Pfizer series) [facility] Start: 06-01-2021 COVID-19 Vaccine (4 - Booster for Pfizer series) COVID-19 Vaccine (4 - Booster for Pfizer series) [facility] Start: 05-07-2021 ADVANCE DIRECTIVE DISCUSSION ADVANCE DIRECTIVE DISCUSSION [facility] Start: 08-11-2020 Screening for malign ant neoplasm of colon [facility] Start: 07-30-2020 Screening for malign ant neoplasm of colon [facility] Start: 01-20-2020 Echocardiography Echocardiogram [facility] [address] [place] Work Phone: Start: 01-06-2020 Influenza vaccination INFLUENZA (#1) [facility] Start: 12-04-2019 Annual Wellness Visi t (AWV) Annual Wellness Visit (AWV) [facility] Start: 12-04-2019 Creatinine monitoring Creatinine mon itoring [facility] Work Phone: Start: 12-04-2019 Hepatitis C screen Hepatitis C scree n [facility] Work Phone: Comment on above: Postponed from 05/06 (Patient Refused) Start: 12-04-2019 Potassium monitoring Potassium monit oring [facility] Work Phone: Start: 12-04-2019 Prostate specific an tigen measurement Prostate Specific Antigen (PSA) Screening or Monitoring [facility] Start: 12-04-2019 Shingles Vaccine (1 of 2) Day gles Vaccine (1 of 2) [facility] Work Phone: Comment on above: Postponed from 05/06 (Patient Refused) Start: 06-07-2019 Colon Cancer Screen FIT/FOBT [facility] Work Phone: Start: 08-14-2017 LIPID SCREEN LIPID SCREEN [facility] Start: 2017 ADVANCE DIRECTIVE DISCUSSION ADVANCE DIRECTIVE DISCUSSION [facility] Start: 2017 PNEUMOCOCCAL: 65+ (1 - PCV) PNEUMOCOCCAL: 65+ (1 - PCV) [facility] Start: 2017 PNEUMOVAX AGE 65 AND OVER WITH 5YR LOOKBACK (#1) PNEUMOVAX AGE 65 AND OVER WITH 5YR LOOKBACK (#1) [facility] Start: 04-14-2016 DIABETES SCREEN DIABETES SCREEN [facility] Start: 2012 RSV Immunization age d 60 or older (1 - 1-dose 60+ series) RSV Immunization aged 60 or older (1 - 1-dose 60+ series) [facility] Start: 2007 PROSTATE CANCER SCRE ENING DISCUSSION PROSTATE CANCER SCREENING DISCUSSION [facility] Start: 2002 Shingles vaccine (1 of 2) Day gles vaccine (1 of 2) [facility] Start: 2002 SHINGRIX VACCINE (1 of 2) DAY GRIX VACCINE (1 of 2) [facility] Start: 2002 Tuberculosis screening COLOREC MONIQUE CANCER SCREENING,SEE MODIFIER [facility] Start: 2002 Zoster Vaccines (1 of 2) Zoste r Vaccines (1 of 2) [facility] Start: 1997 COLOGUARD (FIT-DNA) COLOGUARD (FIT-D NA) [facility] Start: 1997 Colonoscopy COLONOSCOPY [facility] Start: 1997 COLORECTAL CANCER SCREENING COLORECTAL CANCER SCREENING [facility] Start: [address] COLONOGRAPHY [facility] Start: 1997 FECAL OCCULT BLOOD FECAL OCCULT BLOO D [facility] Start: 1997 Screening for malign ant neoplasm of colon [facility] Start: 1997 SIGMOIDOSCOPY SIGMOIDOSCOPY [facility] Start: 1987 Diabetes screen Diabetes screen [place] Start: 1971 Urine microalbumin profile DTAP,TDAP,TD (1 - Tdap) [facility] Start: 1970 ANNUAL 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 DISEASE VISIT ANNUAL PCP TEAM CHRONIC DISEASE VISIT [facility] Start: 1970 BP CONTROLLED (<130/80) BP CONTROLLE D (<130/80) [facility] Start: 1970 Diabetes mellitus screening Diabetes Screening [facility] Start: 1970 HEPATITIS C SCREENING HEPATITIS C SC REENING [facility] Start: 1970 Hepatitis C screening [facility] Start: 1964 Adult depression screening assessment DEPRESSION SCREENING [facility] Start: 1964 Depression Screen Depression Screen [facility] Start: 1962 Diabetic foot examination Diabetes: Foot Exam [facility] Start: 1962 Glaucoma screening Diabetes: R etinopathy Screening [facility] Start: 1962 Preventive dental service Diabetes: Dental Exam [facility] Start: 1952 Echocardiography Echocardiogram [facility] Start: 1952 Hemoglobin A1c measurement Diabetes: Hemoglobin A1C [facility] Start: 1952 Lipid panel Lipid Panel [facility] Start: 1952 Screening for malign ant neoplasm of colon [facility] Bacteria identified in Urine by Culture Urine Culture [facility] Work Phone: End: 03-02-2022 CBC W Auto Differential panel - Blood CBC with Auto Differential Lab Routine One Time for 1 Occurrences starting 03/02/2022 until 03/02/2022 [facility] Work Phone: Comment on above: One Time for 1 Occur rences starting 03/02/2022 until 03/02/2022 End: 03-02-2022 Comprehensive metabolic 2000 panel - Serum or Plasma Comprehensive Metabolic Panel Lab STAT One Time for 1 Occurrences starting 03/02/2022 until 03/02/2022 [facility] Work Phone: Comment on above: One Time for 1 Occur rences starting 03/02/2022 until 03/02/2022 End: 09-06-2023 CT Abdomen WO contrast [facility] Work Phone: Comment on above: Once for 1 Occurrenc es starting 09/06/2023 until 09/06/2023 End: 12-22-2021 Culture, Blood 2 Culture, Blood 2 Microbiology STAT One Time for 1 Occurrences starting 12/22/2021 until 12/22/2021 [facility] Work Phone: Comment on above: One Time for 1 Occur rences starting 12/22/2021 until 12/22/2021 End: 12-22-2021 Microscopic examination of blood, culture Culture, Blood Microbiology STAT One Time for 1 Occurrences starting 12/22/2021 until 12/22/2021 [facility] Work Phone: Comment on above: One Time for 1 Occur rences starting 12/22/2021 until 12/22/2021 Microscopic examinat ion of blood, culture Culture, Blood Microbiology STAT 12/22/2021 12:22 AM EDT [facility] Work Phone: Oxygen therapy [[facility] Data Set] Initiate Oxygen Therapy Protocol Respiratory Care Routine As Needed until discontinued starting 10/21/2021 [facility] Comment on above: As Needed until disc ontinued starting 10/21/2021 Protime-INR Protime-INR Lab Routine Daily until discontinued starting 10/23/2021, 7 completed [facility] Work Phone: Comment on above: Daily until disconti nued starting 10/23/2021, 7 completed End: 03-02-2022 Protime-INR Protime-INR Lab Routine One Time for 1 Occurrences starting 03/02/2022 until 03/02/2022 [facility] Work Phone: Comment on above: One Time for 1 Occur rences starting 03/02/2022 until 03/02/2022 Spirometry panel Incentive stef metry Respiratory Care Routine Daily until discontinued starting 10/21/2021 [facility] Work Phone: Comment on above: Daily until disconti nued starting 10/21/2021 End: 10-21-2021 Wound ostomy eval Wound ostomy eval Wound Ostomy Routine One Time for 1 Occurrences starting 10/21/2021 until 10/21/2021 [facility] Work Phone: Comment on above: One Time for 1 Occur rences starting 10/21/2021 until 10/21/2021 Jorge magallon NEGATED: Highlighted row has been ruled out! Planned Goals not documented [facility] Work Phone: Immunizations Immunization Date Immunization Notes Care Provider Fa cili 03-04-2019 influenza, high dose seasonal, preservative-free Sarika [...] e, quadrivalent, contains preservative Sarika Salas [facility] 02-08-2015 influenza virus vacc ine, unspecified formulation Sarika Salas [facility] Work Phone: 02-04-2013 pneumococcal Conjuga te, unspecified formulation Sarika Salas [facility] Work Phone: Payers Date Payer Category Payer Unknown [id number] 11-19-2023 Self-pay 01-05-2022 Medicaid 01-05-2022 Medicare 01-05-2022 Medicare [id number] 10-05-2021 Medicaid [id number] 06-07-2021 Medicare UHC MEDICARE UHC DUAL COMPLETE HMO SNP [id number] 06/07/2021-Present [phone] [address] [place] [address] Medicare [id number]. 2.7.3.563228.315 06-07-2021 Medicare UHC MEDICARE [employer] DUAL COMPLETE [id number] 06/07/2021-Present [phone] [address] [place] [address] [id number]. 2.7.3.592507.315 11-05-2019 Medicare UHC AARP MEDICAR E [facility] AARP MEDICARE HMO [id number] 11/05/2019-Present HM [id number] [id number]. 2.7.3.789146.315 07-06-2015 Medicare UHC MEDICARE UHC MEDICARE COMPLETE xxxxxxxxx 2015-Present xxxxxxxxx [id number]. 2.7.3.814258.315 1952 Unknown [id number] 2.16.840.1.212046.3.579. 2.668 1952 Unknown [id number] 2.16.840.1.481581.3.579. 2.668 1952 Unknown [id number] 2.16.840.1.578319.3.579. 2.668 1952 Unknown [id number] 2.16.840.1.940433.3.579. 2.668 1952 Unknown [id number] 2.16.840.1.173508.3.579. 2.668 1952 Unknown [id number] 2.16.840.1.691802.3.579. 2.668 1952 Unknown [id number] 2.16.840.1.610402.3.579. 2.668 Private Health Insurance Unknown Unknown [id number] 2.16.840.1.350321.3.579. 2.462 Unknown [id number] 2.16.840.1.533467.3.579. 2.462 Unknown [id number] 2.16840.1.997437.3.579. 2.462 Unknown [id number] 2.840.1.378867.3.579. 2.462 Unknown [id number] 2.16.840.1.831547.3.579. 2.462 Unknown [id number] 2.840.1.707284.3.579. 2.462 Unknown [id number] 2.840.1.245864.3.579. 2.462 Unknown [id number] 2.840.1.377526.3.579. 2.462 Unknown [id number] 2.840.1.227379.3.579. 2.462 Unknown [id number] 2.840.1.736218.3.579. 2.462 Unknown [id number] 2.840.1.162481.3.579. 2.462 Unknown [id number] .840.1.926898.3.579. 2.462 Unknown [id number] .840.1.543603.3.579. 2.462 Unknown [id number] .840.1.736017.3.579. 2.462 Unknown [id number] 2.840.1.453479.3.579. 2.462 Unknown [id number] .840.1.499097.3.579. 2.462 Unknown [id number] .840.1.558646.3.579. 2.462 Unknown [id number] 2.840.1.603311.3.579. 2.462 Unknown [id number] 2.840.1.084407.3.579. 2.462 Unknown [id number] 2.840.1.461979.3.579. 2.462 Unknown [id number] 2.16.840.1.530390.3.579. 2.462 Unknown [id number] 2.16.840.1.489328.3.579. 2.462 Unknown [id number] 2.16.840.1.347079.3.579. 2.462 Unknown [id number] 2.16.840.1.076228.3.579. 2.462 Unknown [id number] 2.16.840.1.878252.3.579. 2.462 Unknown [id number] 2.16.840.1.219349.3.579. 2.462 Unknown [id number] 2.16.840.1.552996.3.579. 2.462 Unknown [id number] 2.16.840.1.989904.3.579. 2.462 Unknown [id number] 2.16.840.1.460170.3.579. 2.462 Unknown [id number] 2.16.840.1.836050.3.579. 2.462 Unknown [id number] 2.16.840.1.781013.3.579. 2.462 Unknown [id number] 2.16.840.1.790935.3.579. 2.462 Unknown [id number] 2.16.840.1.812729.3.579. 2.462 Unknown [id number] 2.16.840.1.680602.3.579. 2.462 Unknown [id number] 2.16.840.1.908727.3.579. 2.462 Unknown [id number] 2.16.840.1.993441.3.579. 2.462 Unknown [id number] 2.16.840.1.767164.3.579. 2.462 Unknown [id number] 2.16.840.1.810338.3.579. 2.462 Unknown [id number] 2.16.840.1.775821.3.579. 2.462 Unknown [id number] 2.16.840.1.323999.3.579. 2.462 Unknown [id number] 2.16.840.1.834165.3.579. 2.462 Unknown [id number] 2.16.840.1.917834.3.579. 2.462 Unknown [id number] 2.16.840.1.557706.3.579. 2.462 Unknown [id number] 2.16.840.1.369153.3.579. 2.462 Unknown [id number] 2.16.840.1.316512.3.579. 2.462 Unknown [id number] 2.16.840.1.937512.3.579. 2.462 Unknown [id number] 2.16.840.1.472033.3.579. 2.462 Unknown [id number] 2..840.1.333337.3.579. 2.462 Unknown [id number] 2.16.840.1.634764.3.579. 2.462 Unknown [id number] 2.16.840.1.407595.3.579. 2.462 Unknown [id number] 2.16.840.1.680207.3.579. 2.462 Unknown [id number] 2.16.840.1.157164.3.579. 2.462 Unknown [id number] 2.16.840.1.801183.3.579. 2.462 Unknown [id number] 2.16.840.1.311997.3.579. 2.462 Unknown [id number] 2.16.840.1.886855.3.579. 2.462 Unknown [id number] 2.16.840.1.644446.3.579. 2.462 Unknown [id number] 2.16.840.1.391677.3.579. 2.462 Unknown [id number] 2.16.840.1.551821.3.579. 2.462 Unknown [id number] 2.16.840.1.796603.3.579. 2.462 Unknown [id number] 2.16.840.1.012860.3.579. 2.462 Unknown [id number] 2.16.840.1.055927.3.579. 2.462 Unknown [id number] 2.840.1.125202.3.579. 2.462 Unknown [id number] 2.16840.1.988779.3.579. 2.462 Unknown [id number] 2.840.1.910018.3.579. 2.462 Unknown [id number] 2.840.1.368816.3.579. 2.462 Unknown [id number] 2.840.1.684321.3.579. 2.462 Unknown [id number] 2.840.1.838182.3.579. 2.462 Unknown [id number] 2.840.1.184553.3.579. 2.462 Unknown [id number] 2.840.1.190614.3.579. 2.462 Unknown [id number] 2.16.840.1.483720.3.579. 2.462 Unknown [id number] 2.840.1.138149.3.579. 2.462 Unknown 51495107 2.840.1.830869.3.579. 2.462 Unknown [id number] 2.16840.1.596534.3.579. 2.462 Unknown [id number] 2.16840.1.317840.3.579. 2.462 Unknown [id number] 2.16.840.1.576151.3.579. 2.462 Unknown 16627535 2.16840.1.881003.3.579. 2.462 Unknown 19773465 2.16.840.1.109931.3.579. 2.462 Unknown [id number] 2.16.840.1.295395.3.579. 2.462 Unknown [id number] 2.16.840.1.874650.3.579. 2.462 Unknown [id number] 2.16840.1.674620.3.579. 2.462 Unknown [id number] 2.16840.1.067924.3.579. 2.462 Unknown [id number] 2.16840.1.800450.3.579. 2.462 Unknown 60365057 2.16840.1.375812.3.579. 2.462 Unknown [id number] 2.840.1.970368.3.579. 2.462 Unknown [id number] 2.840.1.118242.3.579. 2.462 Unknown [id number] 2.840.1.863319.3.579. 2.462 Unknown [id number] 2.840.1.470142.3.579. 2.462 Unknown [id number] 2.840.1.601797.3.579. 2.462 Unknown [id number] 2.840.1.235752.3.579. 2.462 Unknown [id number] 2.840.1.877532.3.579. 2.462 Unknown 23330404 2.16840.1.954780.3.579. 2.462 Unknown [id number] 2.16840.1.268458.3.579. 2.462 Unknown [id number] 2.16840.1.648393.3.579. 2.462 Unknown [id number] 2.16840.1.743521.3.579. 2.462 Unknown [id number] 2.16840.1.969465.3.579. 2.462 Unknown 66389060 2.16.840.1.475751.3.579. 2.462 Unknown [id number] 2.16.840.1.944227.3.579. 2.462 Unknown [id number] 2.16.840.1.374151.3.579. 2.462 Unknown 32585350 2.16.840.1.698735.3.579. 2.462 Unknown [id number] 2.16.840.1.556627.3.579. 2.462 Unknown [id number] 2.16.840.1.286019.3.579. 2.462 Unknown [id number] 2.16.840.1.618374.3.579. 2.462 Unknown [id number] 2.16.840.1.281319.3.579. 2.462 Unknown [id number] 2.16.840.1.395952.3.579. 2.462 Unknown [id number] 2.16.840.1.332989.3.579. 2.462 Unknown [id number] 2.16.840.1.336894.3.579. 2.462 Unknown [id number] 2.16.840.1.086235.3.579. 2.462 Unknown [id number] 2.16.840.1.590271.3.579. 2.462 Unknown [id number] 2.16.840.1.471487.3.579. 2.462 Unknown [id number] 2.16840.1.055335.3.579. 2.462 Unknown [id number] 2.16.840.1.974194.3.579. 2.462 Unknown [id number] 2.16.840.1.199290.3.579. 2.462 Social History Date Type Detail Facility Start: 05-23-2018 End: 05-19-2019 Tobacco smoking status OKIS Former smoker [facility] Work Phone: History of tobacco use Cigar Smoker [employer] Work Phone: Start: 05-19-2019 End: 08-13-2023 Cigarettes smoked current (pack per day) - [facility]orted [facility] Work Phone: Start: 05-19-2019 End: 08-13-2023 Alcohol intake Current non-drinker of alcohol (finding) [employer] Work Phone: Start: 12-03-2018 History SDOH Physica l Activity DPW 7 [employer] Work Phone: Start: 12-03-2018 History SDOH Physica l Activity MPS 9 [employer] Work Phone: Start: 12-03-2018 End: 10-31-2021 History SDOH Stress 1 [employer] Work Phone: Start: 12-03-2018 History SDOH Financial 5 [employer] Work Phone: Start: 12-03-2018 History SDOH Transpo rt Med 2 [employer] Work Phone: Start: 1950 Sex Assigned At Not on file [facility] Work Phone: Start: 08-13-2012 End: 11-13-2019 Tobacco smoking status NHIS Never smoker [facility] Start: 05-23-2018 End: 11-13-2019 Tobacco use and exposure Never used [facility] Start: 11-13-2019 History SDOH Alcohol Std Drinks 98 [facility] Start: 10-11-2021 End: 02-15-2022 Exposure to SARS-CoV-2 (event) Not sure [facility] Start: 1950 Sex Assigned At Male [facility] History of tobacco use Current smoker [facility] Work Phone: History of tobacco use Cigarette Smoker [facility] Work Phone: Start: 10-31-2021 End: 08-13-2023 Tobacco use panel [facility] Tobacco smoking stat us NHIS Unknown if ever smoked [facility] Work Phone: Start: 07-11-2024 End: 08-21-2024 Sex Male (finding) [facility] NEGATED: Highlighted row - - [facility] Work Phone: Medical Equipment Procedure Code Equipment Code Equipment Origin al Text Equipment Identifier Dates Kit Bactiseal Woodard maria guadalupe Silicone Barium Catheter Shunt Sterile - [id number] Start: 06-08-2021 Catheter Bactise al 14cm External Drainage Csf Sterile Latex Free - [id number] Start: 08-05-2021 Valve Certas Shannon nt Inline - [id number] Start: 06-08-2021 Valve Certas Hsannon nt Inline - [id number] Start: 08-05-2021 Valve Certas Shannon nt Inline - [id number] Start: 08-09-2021 Goals Date Patient Goal [...] i.e treadmill, exercise in a week. Advised "strive for 5" a total 5 servings of fruits and [...] i.e treadmill, exercise in a week. Advised "strive for 5" a total 5 servings of fruits and [...] status health issues are not documented Disease [facility] Work Phone: Mental Status Date Assessment Result Facility NEGATED: Highlighted row Cognitive function [Interpretation] Cognitive status health issues are not documented Disease [facility] Work Phone: Clinical Notes [...] Report Dictated on Electronically Signed By: Javier Marilou, DO Electronically Signed Date/Time: 09/07/2023 2:06 PM EDT Exam No flank mass or tenderness Bladder non tender, non distended Review of Systems Past Medical History: Past Medical History: Diagnosis Date ED (erectile dysfunction) Hemorrhoids Hydrocephalus, adult (CMS/HCC) (HCC) Kidney stone Neuropathy 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 No results found for: TESTOSTERONE Lab Results Component Value Date WBC 14.5 (H) 03/02/2022 HGB 12.1 (L) 03/02/2022 MCV 81.1 03/02/2022 Lab Results Component Value Date GLUCOSE 109 (H) 03/02/2022 CALCIUM 9.1 03/02/2022 NA 140 03/02/2022 K 3.7 03/02/2022 CO2 27 03/02/2022 CL 106 03/02/2022 BUN 22 (H) 03/02/2022 CREATININE 0.63 03/02/2022 No components found for: "LABURIN" Lab Results Component Value Date COLORU Yellow 11/01/2021 BILIRUBINUR Negative 11/01/2021 PROTUR 10 (A) 11/01/2021 UROBILINOGEN Normal 11/01/2021 LEUKOCYTESUR Negative 11/01/2021 Radiology Review: Rebecca Buck MD 09/13/23 12:05 PM documented in this encounter [facility] 08-31-2023 Note S: Shanthi from [facility] spoke with [facility] nurse regarding voiding trial procedure. B: [...] Protocols used: Information Only Call - No [id number] encounter Note S: Shanthi from [facility] spoke with [facility] nurse regarding voiding trial procedure. B: [...] Protocols used: Information Only Call - No [id number]-AF [facility] 08-31-2023 Miscellaneous Notes S: Shanthi from [facility] spoke with [facility] nurse regarding voiding trial procedure. B: [...] Protocols used: Information Only Call - No [id number] documented in this encounter [facility] 08-29-2023 Telephone encounter Note Chidi on daughters vm to advise them to call the number for the equipment manager to get clarification, and to call back with further questions [facility] 08-29-2023 Miscellaneous Notes Lm on daughters vm to advise them to call the number for the equipment manager to get clarification, and to call back with further questions Yes, they will need to call the number given to them. Please advise Name of caller: Shanthi Contact phone number: [phone] Relationship to Patient: patient Provider: MD Quinn Practice: [facility] Chief Complaint/Reason for Call: [facility] called in to see if Pt would need to come by cot for his CT appt due to Pt being Boaz. TEA did reach out to office and was advised to reach out to Central Scheduling. TEA did reach out to CS and was advised to let [facility] know that she would need to reach out to call Maury Cedeño Costing Analyst at [facility] [phone] to get clarifications. [facility] did reach back out to [facility] and advised and provider Maury's #. Please advise Best time of day caller can be reached: Any Patient advised that office/PCP has 24-48 business hours to return their call: N/A documented in this encounter [facility] 08-27-2023 Telephone encounter Note Yes, they will need to call the number given to them. [facility] 08-27-2023 Telephone encounter Note Please advise [facility] 08-21-2023 Telephone encounter Note Name of caller: Shanthi Contact phone number: [phone] Relationship to Patient: patient Provider: MD Quinn Practice: [facility] Chief Complaint/Reason for Call: Shanthi called [...] to reach out to call Maury Cedeño Costing Analyst at [facility] [phone] to get clarifications. TEA did reach back out to Shanthi and advised and provider Maury's #. 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 DATA: LABS: No results found for: "PSAFREE", PSAFREEPCT No results for input(s): "PSAFREE", "PSAFREEPCT" in the last 72 hours. No results found for: TESTOSTERONE Lab Results Component Value Date WBC 14.5 (H) 03/02/2022 HGB 12.1 (L) 03/02/2022 MCV 81.1 03/02/2022 Lab Results Component Value Date GLUCOSE 109 (H) 03/02/2022 CALCIUM 9.1 03/02/2022 NA 140 03/02/2022 K 3.7 03/02/2022 CO2 27 03/02/2022 CL 106 03/02/2022 BUN 22 (H) 03/02/2022 CREATININE 0.63 03/02/2022 No components found for: "LABURIN" @LASTPROCPOC@ Radiology Review: Impression: Diagnosis Plan 1. [...] 08/13/23 10:45 AM documented in this encounter [facility] 06-25-2023 Telephone encounter Note [facility] stating appt scheduled 07/10/23 [place] has to be made further out, pt being transported by cot. Changed appt to 08/13/23 per [facility] only avail time for transport, first avail with DR Buck at 10:00 AM. [facility] 06-25-2023 Miscellaneous Notes [facility] called [facility] stating appt scheduled 07/10/23 [place] has to be made further out, pt being transported by cot. Changed appt to 08/13/23 per [facility] only avail time for transport, first avail with DR Buck at 10:00 AM. documented in this encounter [facility] 12-22-2021 Hospital Discharge instructions SANIA Lou - 12/22/2021 2:32 AM EDT Please take medication as prescribed Please follow up with your Physicians as instructed in this discharge paperwork Thank you for choosing [facility] I appreciate your patience Please return to the emergency department if your symptoms worsen, or new symptoms develop as discussed documented in this encounter [facility] Work Phone: 10-29-2021 Note Hospitalist Discharg e [...] abnormality and previous indwelling tubing history of WORK ADJUSTMENT INSTRUCTOR shunt ? #?Bilateral lower extremity wounds-wound care [...] neurologist. Patient will be transferred to the fdc and his Coumadin was continued, dosing instructions were given. Wound care was given for his lower extremity wounds. Consults: neurology, vascular surgery, gastroenterology Discharge Instructions: Diet: No diet orders on file Activity: as tolerated Disposition: Patient discharged in stable condition to fdc . Greater than 30 minutes spent discharging the patient and coming up with patient discharge plan. Vitals: BP 123/79 Pulse 80 Temp 97.8 ?F (36.6 ?C) (Temporal) Resp 18 Ht 5' 7.01" (1.702 m) Wt 240 lb (108.9 kg) [...] Your Medications These medications were sent to [facility] [address] [place], [place] [address] [facility] - [phone] - F [phone] [facility] [address] ? levETIRAcetam 750 MG tablet ? warfarin 6 MG tablet Recommended Follow-up: No follow-up provider specified. Complexity of Follow up: [] Moderate Complexity: follow up within 7-14 calendar days (78277) [x] Severe Complexity: follow up within 7 calendar days (96008) Follow up Testing, Pending results or Referrals [...] Increased fatigue or (more content not included)... [facility] 10-29-2021 Hospital Discharge instructions Fabi Subramanian RN [...] Information Primary Emergency Contact: Triny Damon Address: [address] [place] [address] [address] [place] [address] [place] [address] Relation: Brother/Sister Secondary Emergency Contact: Melissa Sifuentes Mobile Relation: Child Preferred language: Sierra Leonean Past Surgical History: Past Surgical History: Procedure Laterality Date BRAIN SURGERY CHOLECYSTECTOMY COLONOSCOPY HERNIA REPAIR Immunization History: Immunization History Administered Date(s) Administered Influenza Virus Vaccine 02/08/2015 Influenza, High Dose (Fluzone 65 yrs and older) 01/25/2018, 03/04/2019 Influenza, Quadv, IM, (6 mo and older Fluzone, Flulaval, Fluarix and 3 yrs and older Afluria) 02/24/2016, 02/14/2017 Pneumococcal Conjugate 13-valent ([id number]) 09/22/2016 Pneumococcal Conjugate Vaccine 02/04/2013 Pneumococcal Polysaccharide ([id number]) 12/03/2018 Tdap (Boostrix, Adacel) 09/22/2016 Active Problems: Patient Active Problem List Diagnosis Code Flank pain, acute R10.9 Night muscle spasms M62.838 Chronic fatigue R53.82 Hydrocephalus (HCC) G91.9 Neuropathy G62.9 Erectile dysfunction N52.9 Fluid retention in tissues R60.9 Hyperlipidemia E78.5 Morbidly obese (HCC) E66.01 Leg wound, left S81.802A DVT, lower extremity, recurrent, unspecified laterality ([facility]) I82.409 Moderate malnutrition ([facility]) E44.0 History of seizures Z87.898 Isolation/Infection: Isolation No Isolation Patient Infection Status None to display Nurse Assessment: Last Vital Signs: BP 123/79 Pulse 80 Temp 97.8 F (36.6 C) (Temporal) Resp 18 Ht 5' 7.01" (1.702 m) Wt 240 lb (108.9 kg) SpO2 96% BMI 37.58 kg/m Last documented pain score (0-10 scale): Pain Level: 0 Last Weight: Wt Readings from Last 1 Encounters: 10/21/21 240 lb (108.9 kg) Mental Status: Alert. Answers simple questions IV Access: - None Nursing Mobility/ADLs: Walking Dependent Transfer Dependent Bathing Dependent Dressing Dependent Toileting Dependent Feeding Dependent Activities Officer Dependent Med Delivery whole in pudding Wound Care Documentation and Therapy: Wound 10/21/21 Heel Left (Active) Wound Etiology Pressure Unstageable 10/28/21 0800 Dressing Status Clean;Dry;Intact 10/28/211947 Dressing/Treatment ABD;Roll gauze 10/28/211947 Offloading for Diabetic Foot Ulcers Offloading boot 10/28/211947 Dressing Change Due 10/29/21 10/28/211947 Wound Assessment Eschar moist 10/28/21 0800 Drainage Amount None 10/28/211947 Drainage [...] Q4H prn SOB Oxygen Therapy: {Therapy; copd oxygen:34960} Ventilator: {MH CC Vent List:[id number]} Rehab Therapies: {THERAPEUTIC INTERVENTION:[id number]} Weight Bearing Status/Restrictions: Weight Bearing - Patient was bedbound in hospital Other Medical Equipment (for information only, NOT a DME order): wheelchair, hospital bed, and Boaz Other Treatments: Patient's personal belongings (please select all that are sent with patient): {[facility] DME Belongings:[id number]} RN SIGNATURE: CASE MANAGEMENT/SOCIAL WORK SECTION Inpatient Status Date: Readmission Risk Assessment Score: Readmission Risk Risk of Unplanned Readmission: 11 Discharging to Facility/ Agency Name: Address: Phone: Fax: Dialysis Facility (if applicable) Name: Address: Dialysis Schedule: Phone: Fax: Type Cutter/Purchasing Department Clerk signature: {Esignature:[id number]} PHYSICIAN SECTION Prognosis: Fair Condition at Discharge: Stable Rehab Potential (if transferring to Rehab): Fair Recommended Labs or Other Treatments After Discharge: Coumadin based on INR target range 2-3, Coumadin 6 mg on 10/30 and 10/31, recheck INR 11/01 and notify physician, ideally should be on 6 mg alt with 7 mg daily, PT/OT, follow-up with neurologist in 1 month, continue [facility] Physician Certification: I certify the above information and transfer of Andrew Sifuentes is necessary for the continuing treatment of the diagnosis listed and that he requires Detention Facility for greater than 30 days. Update Admission H&P: No change in H&P PHYSICIAN SIGNATURE: documented in this encounter [facility] Work Phone: 10-29-2021 History of Present illness Narrative [facility] Anticoagulation Management Service ([facility]) Inpatient Warfarin Consult HPI: Andrew Sifuentes is a 71 y.o. 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 Past Medical History: Diagnosis Date ED (erectile dysfunction) Hemorrhoids Hydrocephalus, adult (HCC) Kidney stone Neuropathy WORK ADJUSTMENT INSTRUCTOR (ventriculoperitoneal) shunt status Patient is newly referred to the [facility] clinic for warfarin management. Pt was referred [...] drug interactions and adjust dose accordingly. 3. [facility] will manage while inpatient and sign off at discharge. Patient resides in a SNF. If discharged, recommend continuing close to 6-7mg warfarin daily. 4. Will provide warfarin education including [facility] warfarin booklet, if appropriate. Vimal Oropeza RPH, PharmD [facility] Consult Service is available daily [phone]. Please search for covering pharmacist name via LocalGuiding or Groups --> Pharmacy --> Anti-Coagulation Consult Pharmacist (on 3rd page). If no response via MarginPointServe, please page [phone]. Patient seen and chart reviewed. Afebrile. Adequate oxygenation on room air. Baseline mentation. Exam stable X 5 systems. Hgb 11.0 WBC 10.0 K Platelets 344 K Creatinine 0.71 GFR > 90 cc/min. NSE 20.8 with hemolysis. PT 30.8 INR 3.1 Conversion to Warfarin has been completed. APS w/u pending. Discussed with patient's staff consultant. Will continue to monitor. Total visit time > 35 minutes. Neurology Attending Progress Note SUBJECTIVE: No issues overnight. Care discussed with nursing staff/patient's medical team MRI brain reported nothing acute. 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 At present patient is awake, follows commands, was able to tell his name, and that he was in hospital but not oriented to time. Per documentation patient had NCSE in May 2021, was on Vimpat, but it was discontinued as there was no evidence of recurrent seizures in july 2021 by Neurology at [facility], per daughter patient was on Dilantin for 31 yrs. Per daughter patient had seizures in the past and also felt he had staring episodes 10/26/2021 morning. Per daughter patient has been essentially bed bound in [place] since May 2021 but prior to that was independent Impressions: H/O hydrocephalus H/O seizure, H/O stroke Acute DVT H/O PE Plan: -MRI brain w/o contrast nothing acute -CT head done during this admission reported no hydrocephalus, ventricles within normal limits and both old and new WORK ADJUSTMENT INSTRUCTOR shunt tubing noted -EEG mild to moderate slow, no seizures reported -Labs reviewed -Hydrocephalus management per Neurosurgery. At present patient does not have hydrocephalus on CT head done this admission. No Neurosurgery services available as inpatient in [facility]. Patient can follow up with Neurosurgery as outpatient and if ends up needing inpatient neurosurgery requirement then may need to be transferred to [facility]. -No clear clinical signs of ventriculitis. Defer evaluation to primary medical team/ID as deemed necessary. -Discussed with daughter in detail on . She was concerned that patient has had h/o seizures, and he has been taken off seizure medication, per note documentation patient had NCSE in May 2021 when he was admitted to [facility]. Per daughter she would want patient to [...] is no in house Neurology coverage at [facility] over the weekend, primary hospitalist team to contact emergency response coordinator Neurology at [facility] for any weekend neurological issues related to the patient and if need to discuss any neurological test results/findings. Other deal in house Neurology coverage will be available from Sunday at [facility] and please call emergency response coordinator Neurology back on Sunday if need further assistance. This note has been generated using [employer] dictation software. It may contain incorrect words, punctuation's and spellings that were not noted in the review of the note prior to signing. This note has been generated using [employer] dictation software. It may contain incorrect words, [...] eGFR >90.0 >60 mL/min EGFR IF NonAfrican Belizean >90.0 >60 mL/min Calcium 9.1 8.4 - [...] 26 AST 24 BILITOT 0.4 LABALBU 3.7 @BRIEFLAB([facility]) ABGs: )No results for input(s): PH, PO2, [...] Coagulation: Recent Labs 10/26/21 0319 10/27/21 0537 10/28/21 0418 INR 1.9* 2.1* 3.1* CSF: No results [...] Radiology ACCESSION EXAM DATE/TIME PROCEDURE ORDERING PROVIDER [id number] 10/21/2021 15:30 EDT CR Calcaneus 2+ Views [id number] -SHRUTHI MALIK Left CPT code 30547 Reason For Exam (CR Calcaneus 2+ Views [...] Tomography ACCESSION EXAM DATE/TIME PROCEDURE ORDERING PROVIDER [id number] 10/26/2021 11:[address] Head or Brain w/o JUNIE PINEDA SARINA Contrast CPT code 95119 Reason For Exam (CT Head or Brain w/o Contrast) hydrocephalus. thank you Report CLINICAL INFORMATION: Hydrocephalus. Shunt. 3 mm axial cuts through the head are obtained without IV contrast. The examination is compared to a previous study dated 06/29/2014. FINDINGS: Old WORK ADJUSTMENT INSTRUCTOR shunt tubing is noted bilaterally. The new [...] are clear. IMPRESSION: 1. Old and new WORK ADJUSTMENT INSTRUCTOR shunt tubing. 2. No hydrocephalus. 3. Atrophy and evidence of small-vessel ischemic disease. 4. No CT evidence of an acute intracranial process. Report Dictated on --- Final --- Dictating Physician: MD SOLANO JEFFREY Signed Date and Time: 10/26/2021 11:42 am Signed by: MD SOLANO JEFFREY Transcribed Date and Time: 10/26/2021 11:43 MRI ABDOMEN WO CONTRAST Result Date: 10/23/2021 [id number] Resonance Imaging ACCESSION EXAM DATE/TIME PROCEDURE ORDERING PROVIDER [id number] 10/23/2021 11:08 EDT MRI Abdomen w/o Contrast SRIVASTAVAWING CPT code 99521 Reason For Exam (MRI Abdomen w/o Contrast) [...] Medicine ACCESSION EXAM DATE/TIME PROCEDURE ORDERING PROVIDER [id number] 10/21/2021 07:55 EDT NM Pulmonary Perfusion 054327 -MAY CASH w/ Vent Aerosol CPT code 63398 A9567 Reason For Exam (NM Pulmonary Perfusion [...] Brachial Indices Extremity Bilateral Result Date: 10/22/2021 [facility] --- Ankle Brachial Index Report Patient Gurpreet : 1950 Study 10/21/2021 Name: Andrew Gonzalez (71yrs) Date: Age: 71 Account: [id number] Gender: M Loc: 444W BP: Ordering Physician: Shruthi Malik Bank Worker: Rody Cross RDMS, RVT Interpreting Physician: Carina Call --- Location: [facility] --- Indications: Foot wounds. Originally ordered as a full PVR. Ordering FAST FOOD SALES ASSISTANT had to modify the order to ABIs [...] supine position. Images were obtained using a [employer] vascular ultrasound machine. --- Arterial pressure indices: [...] EXTREMITY BILATERAL VENOUS DUPLEX Result Date: 10/21/2021 [facility] --- Lower Extremity Venous Duplex Report Patient DO GurpreetB: 1950 Study 10/21/2021 Name: Andrew Gonzalez (71yr) Date: Age: 71 Account: [id number] Gender: M Loc: 444 BP: Ordering Physician: May Cash Bank Worker: Rody Cross RDMS, RVT Interpreting Physician: Carina Call --- Location: [facility] --- Indications: Bilateral lower leg edema. --- [...] supine position. Images were obtained using a [employer] vascular ultrasound machine. --- Venous flow and [...] Radiology ACCESSION EXAM DATE/TIME PROCEDURE ORDERING PROVIDER [id number] 10/21/2021 08:16 EDT CR Chest 1 View Frontal [id number] MAY CASH CPT code 16723 Reason For Exam (CR Chest 1 View [...] Tomography ACCESSION EXAM DATE/TIME PROCEDURE ORDERING PROVIDER [id number] 10/22/2021 13:[address] Abdomen/Pelvis (No SRIVASTAVA, WING PO, No IV) CPT code 36503 Reason For Exam (CT Abdomen/Pelvis (No PO, [...] Imaging ACCESSION EXAM DATE/TIME PROCEDURE ORDERING PROVIDER [id number] 10/27/2021 13:14 EDT MRI Brain w/o Contrast UNASSIGNED, UNASSIGNED CPT code 53798 Reason For Exam (MRI Brain w/o Contrast) stroke Patient has WORK ADJUSTMENT INSTRUCTOR shunt in place, please follow Radiology protocol [...] included. Hospitalist Progress Note 10/28/2021 11:37 AM [phone]: Please page me @ [phone] for patient care issues. [phone]: Please page [employer] for any issues@ night Subjective: Admit Date: [...] PT/INR: Recent Labs 10/26/21 0319 10/27/21 0537 10/28/21417 PROTIME 19.7* 21.9* 30.8* INR 1.9* 2.1* 3.1* CARDIAC ENZYMES: No results for input(s): TROPONINI in the last 72 hours. Procalcitonin: No results found for: PROCAL Objective: Vitals: BP 138/80 Pulse 87 Temp 97.3 F (36.3 C) (Temporal) Resp 16 Ht 5' 7.01" (1.702 m) Wt 240 lb (108.9 kg) [...] abnormality and previous indwelling tubing history of WORK ADJUSTMENT INSTRUCTOR shunt # Bilateral lower extremity wounds-wound care [...] Services This report was created using the [employer] Speaking voice-activated system. Despite prompt dictation and careful editorial review, there may be subtle contextual errors in this report, due to misrecognition of the spoken word. Speech Language Pathology Facility/Department: [facility] MED SURG Dysphagia Treatment Note NAME: Andrew [...] gloves were worn throughout this session. [facility] Anticoagulation Management Service ([facility]) Inpatient Warfarin Consult HPI: Andrew Sifuentes is a 71 y.o. 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 Past Medical History: Diagnosis Date ED (erectile dysfunction) Hemorrhoids Hydrocephalus, adult (HCC) Kidney stone Neuropathy WORK ADJUSTMENT INSTRUCTOR (ventriculoperitoneal) shunt status Patient is newly referred to the [facility] clinic for warfarin management. Pt was referred by Ellen Scherer APRN-VICTORIANO. Pt is on warfarin for DVT and has a goal INR 2.0 - 3.0 . Duration of therapy= indefinite. Reason for warfarin instead of DOAC: DOAC failure PCP: MONIKA STALEY MD S/sx of bleeding= none noted Interacting medications= none Labs: Recent Labs 10/28/21 0418 HGB 11.0* HCT 33.4* PLT 344 Recent Labs 10/28/218 INR 3.1* Date INR Dose 10/28 3.1 [...] appropriate. Brionna Le, PharmD candidate Josie Gupta [facility], PharmD [facility] Consult Service is available daily [phone]. Please search for covering pharmacist name via LocalGuiding or Groups --> Pharmacy --> Anti-Coagulation Consult Pharmacist (on 3rd page). If no response via PerfectServe, please page [phone]. Follow up b/l foot wounds. No new [...] yr M with PMH obstructive hydrocephalus s/p WORK ADJUSTMENT INSTRUCTOR shunt in 1987, needing multiple revisions and [...] normal limits and both old and new WORK ADJUSTMENT INSTRUCTOR shunt tubing noted. At present patient is awake, follows commands, was able to tell his name, and that he was in hospital but not oriented to time. Per documentation patient had NCSE in May 2021, was on Vimpat, but it was discontinued as there was no evidence of recurrent seizures in july 2021 by Neurology at [facility], per daughter patient was on Dilantin for 31 yrs. Per daughter patient had seizures in the past and also felt he had staring episodes 10/26/2021 morning. Per daughter patient has been essentially bed bound in [place] since May 2021 but prior to that was independent Impressions: H/O hydrocephalus H/O seizure, H/O stroke Acute DVT H/O PE Plan: -MRI brain w/o contrast. Per daughter she would like MRI brain done to evaluate for strokes -CT head done during this admission today reported no hydrocephalus, ventricles within normal limits and both old and new WORK ADJUSTMENT INSTRUCTOR shunt tubing noted -EEG mild to moderate slow, no seizures reported -Labs reviewed -Hydrocephalus management per Neurosurgery. At present patient does not have hydrocephalus on CT head done this admission. No Neurosurgery services available as inpatient in [facility]. Patient can follow up with Neurosurgery as outpatient and if ends up needing inpatient neurosurgery requirement then may need to be transferred to [facility]. -No clear clinical signs of ventriculitis. Defer evaluation to primary medical team/ID as deemed necessary. -Discussed with daughter in detail on . She was concerned that patient has had h/o seizures, and he has been taken off seizure medication, per note documentation patient had NCSE in May 2021 when he was admitted to [facility]. Per daughter she would want patient to [...] interim. This note has been generated using [employer] dictation software. It may contain incorrect words, punctuation's and spellings that were not noted in the review of the note prior to signing. This note has been generated using [employer] dictation software. It may contain incorrect words, [...] LABALBU, AMYLASE, LIPASE in the last 72 hours.@BRIEFLAB([facility]) ABGs: )No results for input(s): PH, PO2, [...] Radiology ACCESSION EXAM DATE/TIME PROCEDURE ORDERING PROVIDER [id number] 10/21/2021 15:30 EDT CR Calcaneus 2+ Views [id number] -MARIBEL MALIKIE Left CPT code 43377 Reason For Exam (CR Calcaneus 2+ Views [...] Tomography ACCESSION EXAM DATE/TIME PROCEDURE ORDERING PROVIDER [id number] 10/26/2021 11:[address] Head or Brain w/o JUNIE PINEDA, SARINA Contrast CPT code 94858 Reason For Exam (CT Head or Brain w/o Contrast) hydrocephalus. thank you Report CLINICAL INFORMATION: Hydrocephalus. Shunt. 3 mm axial cuts through the head are obtained without IV contrast. The examination is compared to a previous study dated 06/29/2014. FINDINGS: Old WORK ADJUSTMENT INSTRUCTOR shunt tubing is noted bilaterally. The new [...] are clear. IMPRESSION: 1. Old and new WORK ADJUSTMENT INSTRUCTOR shunt tubing. 2. No hydrocephalus. 3. Atrophy [...] Imaging ACCESSION EXAM DATE/TIME PROCEDURE ORDERING PROVIDER [id number] 10/23/2021 11:08 EDT MRI Abdomen w/o Contrast WING SRIVASTAVA CPT code 03501 Reason For Exam (MRI Abdomen w/o Contrast) [...] Medicine ACCESSION EXAM DATE/TIME PROCEDURE ORDERING PROVIDER [id number] 10/21/2021 07:55 EDT NM Pulmonary Perfusion [id number] MAY BOGGS w/ Vent Aerosol CPT code 87525 A9567 Reason For Exam (NM Pulmonary Perfusion [...] Brachial Indices Extremity Bilateral Result Date: 10/22/2021 [facility] --- Ankle Brachial Index Report Patient DO GurpreetB: 1950 Study 10/21/2021 Name: Andrew Gonzalez (71yrs) Date: Age: 71 Account: [id number] Gender: M Loc: 444W BP: Ordering Physician: Shruthi Malik Bank Worker: Rody Cross RDMS, RVT Interpreting Physician: Carina Call --- Location: [facility] --- Indications: Foot wounds. Originally ordered as a full PVR. Ordering FAST FOOD SALES ASSISTANT had to modify the order to ABIs [...] supine position. Images were obtained using a [employer] vascular ultrasound machine. --- Arterial pressure indices: [...] electronically signed by Carina Call 10/22/2021 13:21 LOWER EXTREMITY BILATERAL VENOUS DUPLEX Result Date: 10/21/2021 [facility] --- Lower Extremity Venous Duplex Report Patient DO GurpreetB: 1950 Study 10/21/2021 Name: Andrew Gonzalez (71yrs) Date: Age: 71 Account: [id number] Gender: M Loc: [facility] BP: Ordering Physician: May Cash Bank Worker: Rody Cross RDMS, RVT Interpreting Physician: Carina Call --- Location: [facility] --- Indications: Bilateral lower leg edema. --- [...] supine position. Images were obtained using a [employer] vascular ultrasound machine. --- Venous flow and [...] Radiology ACCESSION EXAM DATE/TIME PROCEDURE ORDERING PROVIDER [id number] 10/21/2021 08:16 EDT CR Chest 1 View Frontal [id number] -SHAILESHMAY CPT code 84797 Reason For Exam (CR Chest 1 View [...] Tomography ACCESSION EXAM DATE/TIME PROCEDURE ORDERING PROVIDER [id number] 10/22/2021 13:[address] Abdomen/Pelvis (No SRIVASTAVA, WING PO, No IV) CPT code 24951 Reason For Exam (CT Abdomen/Pelvis (No PO, [...] 12:48 PM Consults Speech Language Pathology Facility/Department: [facility] MED SURG Dysphagia Treatment Note NAME: Andrew [...] reactivity and state change, indicative of a dajx-ph-vqklumwz diffuse encephalopathy of nonspecific etiology. There are [...] Easy to chew diet/cut up. NEVILLE Jones M.A.[facility]/AREA SAFETY MANAGER Time session ended: 1156 Total session minutes: 23 Images from the original note were not included. Hospitalist Progress Note 10/27/2021 10:40 AM [phone]: Please page me @ [phone] for patient care issues. [phone]: Please page [employer] for any issues@ night Subjective: Admit Date: [...] (36.3 C) (Temporal) Resp 16 Ht 5' 7.01" (1.702 m) Wt 240 lb (108.9 kg) [...] Services This report was created using the [employer] voice-activated system. Despite prompt dictation and careful editorial review, there may be subtle contextual errors in this report, due to misrecognition of the spoken word. [facility] Anticoagulation Management Service ([facility]) Inpatient Warfarin Consult HPI: Andrew Sifuentes is a 71 y.o. 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 Past Medical History: Diagnosis Date ED (erectile dysfunction) Hemorrhoids Hydrocephalus, adult (HCC) Kidney stone Neuropathy WORK ADJUSTMENT INSTRUCTOR (ventriculoperitoneal) shunt status Patient is newly referred to the [facility] clinic for warfarin management. Pt was referred [...] PharmD [facility] Consult Service is available daily [phone]. Please search for covering pharmacist name via LocalGuiding or Groups --> Pharmacy --> Anti-Coagulation Consult Pharmacist (on 3rd page). If no response via LocalGuiding, please page [phone]. I cleaned under patient's finger nails with [...] status with Warfarin. Discussed with patient's staff consultant. Will continue to monitor. Total visit time > 35 minutes. Progress Note 10/26/2021 1:40 PM Name: Andrew Sifuentes IP Day: 5 Admit Date: 10/21/2021 12:43 AM [...] (35.8 C) (Temporal) Resp 16 Ht 5' 7.01" (1.702 m) Wt 240 lb (108.9 kg) [...] if concern Hydrocephalus Chronic WOODARD's - Revised WORK ADJUSTMENT INSTRUCTOR shunt - daughter requested that pt have CT / MRI of brain and neurology be consulted, this was done. - "Hydrocephalus management per Neurosurgery. At present patient does not have hydrocephalus on CT head done this morning. No Neurosurgery services available as inpatient in [facility]. Patient can follow up with Neurosurgery as outpatient and if ends up needing inpatient neurosurgery requirement then may need to be transferred to [facility]. " Seizure history, unspecified - daughter requested that [...] report from nursing. Continue wound care. [facility] Anticoagulation Management Service ([facility]) Inpatient Warfarin Consult HPI: Andrew Sifuentes is a 71 y.o. 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 Past Medical History: Diagnosis Date ED (erectile dysfunction) Hemorrhoids Hydrocephalus, adult (HCC) Kidney stone Neuropathy WORK ADJUSTMENT INSTRUCTOR (ventriculoperitoneal) shunt status Patient is newly referred to the [facility] clinic for warfarin management. Pt was referred [...] 4. Will provide warfarin education including [facility] warfarin booklet, if appropriate. Thank you for this consult Brionna Le, PharmD candidate Josie Gupta RPh, PharmD [facility] Consult Service is available daily [phone]. Please search for covering pharmacist name via LocalGuiding or Groups --> Pharmacy --> Anti-Coagulation Consult Pharmacist (on 3rd page). If no response via [employer], please page [phone]. Moon daughter stated that any of patient's family can call and obtain an update on patient's status. Speech Language Pathology Facility/Department: [facility] MED SURG CLINICAL BEDSIDE SWALLOW EVALUATION NAME: [...] a small bore straw. Additionally discussed with AREA SAFETY MANAGER, agreeable to assess tomorrow. Recent Chest Xray/CT [...] and liquids between bites. Treatment Plan Requires AREA SAFETY MANAGER Intervention: Yes Duration of Treatment: 2 weeks [...] Education Response: Verbalizes understanding;Needs reinforcement Therapy Time AREA SAFETY MANAGER Individual Minutes Time In: 826 Time Out: 852 Minutes: 26 NEVILLE Jones 10/26/2021 9:20 AM Comprehensive Nutrition Assessment Type and Reason for Visit: Initial (DT referral for wounds) Nutrition Recommendations/Plan: 1. Recommend to continue: Easy to Chew diet with Thin Liquids as currently ordered and safe for patient to participate in. Discussed with: RN, FAST FOOD SALES ASSISTANT, and AREA SAFETY MANAGER. AREA SAFETY MANAGER to assess tomorrow, best diet and liquid [...] & deltoids),Scapula (trapezius) Fluid Accumulation: Mild Extremities Gun Tester Strength: Not Performed Nutrition Assessment: 71 year [...] a small bore straw. Additionally discussed with AREA SAFETY MANAGER, agreeable to assess tomorrow. Nutrition Related Findings: [...] oz Oral Supplement Anthropometric Measures: Height: 5' 7.01" (170.2 cm) [place] Body Weight (IBW): 148 lbs (67 kg) Admission Body Weight: 240 lb (108.9 kg) (stated 10/21/21) Current Body Weight: 205 lb 4 oz (93.1 kg) (10/25/21), 138.7 % IBW. Weight Source: Bed Scale Current BMI (kg/m2): 32.1 Usual Body Weight: 272 lb 11.3 oz (123.7 kg) (05/30/21 and 232.5# noted 08/14/21 at [facility] per EMR Review) % Weight Change (Calculated): -24.7 BMI Categories: Obese Class 1 (BMI 30.0-34.9) Estimated Daily Nutrient Needs: Energy Requirements Based On: Kcal/kg Weight Used for Energy Requirements: [place] (67.15 kg) Energy (kcal/day): 6075-4842 (27-32 kcal/kg IBW) --> increased need d/t wounds Weight Used for Protein Requirements: [place] (67.15 kg) Protein (g/day): 67-101 (1.0-1.5 g protein/kg IBW) Method Used for Fluid Requirements: Other (Comment) Fluid (ml/day): 2061-2530 mL daily or per MD Nutrition Diagnosis: [...] Plan of Care discussed with: Patient, RN, FAST FOOD SALES ASSISTANT [place] Goals: Goals: other (specify) Specify Other Goals: [...] to determine Puja Almanza RD, LD Contact: *[phone] Or Via LocalGuiding Hematology/Oncology Attending Progress Note SUBJECTIVE: Patient seen and chart reviewed. No bleed or further thrombosis. More animated and conversational today. OBJECTIVE BP 120/70 Pulse 73 Temp 97.9 F (36.6 C) (Temporal) Resp 16 Ht 5' 7.01" (1.702 m) Wt 240 lb (108.9 kg) [...] IRON, TIBC, FERRITIN No results found for: [id number] No results found for: FOLATE PT 15.6 INR 1.5 CA 19 - 9 is 17 Protein S 138% Protein C 186% ASSESSMENT AND PLAN GI input appreciated. Patient continues with subtherapeutic INR. GI input appreciated. Discussed with patient's staff consultant. Will continue monitor. Total visit time > 35 minutes. [facility] Anticoagulation Management Service ([facility]) Inpatient Warfarin Consult HPI: Andrew Sifuentes is a 71 y.o. 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 Past Medical History: Diagnosis Date ED (erectile dysfunction) Hemorrhoids Hydrocephalus, adult (HCC) Kidney stone Neuropathy WORK ADJUSTMENT INSTRUCTOR (ventriculoperitoneal) shunt status Patient is newly referred to the [facility] clinic for warfarin management. Pt was referred [...] 1.5* Date INR Dose 10/25 1.5 7.5mg 10/24 1.2 7.5mg 10/23 [...] PharmD [facility] Consult Service is available daily [phone]. Please search for covering pharmacist name via LocalGuiding or Groups --> Pharmacy --> Anti-Coagulation Consult Pharmacist (on 3rd page). If no response via LocalGuiding, please page [phone]. Progress Note 10/25/2021 9:36 AM Name: Andrew Sifuentes Day: 4 Admit Date: 10/21/2021 12:43 AM PCP: MONIKA STALEY MD Code Status: Full Code Subjective: No acute complaints Denies f/c, cp, sob, n/v/changes in BM Physical Examination: PHYSICAL EXAM: Vitals: BP 120/70 Pulse 73 Temp 97.9 F (36.6 C) (Temporal) Resp 16 Ht 5' 7" (1.702 m) Wt 240 lb (108.9 kg) [...] if concern Hydrocephalus Chronic WOODARD's - Revised WORK ADJUSTMENT INSTRUCTOR shunt DC planning - 10/25/21: INR subtherapeutic, needs to be 2 Progress Note 10/24/2021 3:24 PM Name: Andrew Sifuentes IP Day: 3 Admit Date: 10/21/2021 12:43 AM PCP: MONIKA STALEY MD Code Status: Full Code Subjective: No acute complaints Denies f/c, cp, sob, n/v/changes in BM Physical Examination: PHYSICAL EXAM: Vitals: BP 130/74 Pulse 81 Temp 97.3 F (36.3 C) (Temporal) Resp 14 Ht 5' 7" (1.702 m) Wt 240 lb (108.9 kg) [...] if concern Hydrocephalus Chronic WOODARD's - Revised WORK ADJUSTMENT INSTRUCTOR shunt DC planning - Can be DC'd back to [facility] once MRI done if no acute findings, MRI is done, defer to hem / onc on plan for that, awaiting chest PA with fluoro Patient seen and chart reviewed. Consult dictated. Will ask GI to assess concerning the etiology of liver lesions. Will continue to monitor. [facility] Anticoagulation Management Service ([facility]) Inpatient Warfarin Consult HPI: Andrew Sifuentes is a 71 y.o. 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 Past Medical History: Diagnosis Date ED (erectile dysfunction) Hemorrhoids Hydrocephalus, adult (HCC) Kidney stone Neuropathy WORK ADJUSTMENT INSTRUCTOR (ventriculoperitoneal) shunt status Patient is newly referred to the [facility] clinic for warfarin management. Pt was referred [...] 4. Will provide warfarin education including [facility] warfarin booklet, if appropriate. Thank you for this consult Brionna Le, PharmD candidate Josie Gupta [facility], PharmD [facility] Consult Service is available daily [phone]. Please search for covering pharmacist name via LocalGuiding or Groups --> Pharmacy --> Anti-Coagulation Consult Pharmacist (on 3rd page). If no response via PerfectServe, please page [phone]. Follow up foot wounds Patient is more alert this morning. Waffle boots are on Ulcer left heel ulcer right foot Foot drop PE, chart reviewed. Patient relates that he does not walk at home. c ontinue wound care. Images from the original note were not included. Hospitalist Progress Note 10/23/2021 1:47 PM [phone]: Please page me ([phone]) or perfect serve me for patient care issues. [phone]: Please page IMS night Hospitalist for any issues. Subjective: Admit Date: 10/21/2021 PCP: MONIKA STALEY MD Room#: [id number] Admitting Synopsis: 71 y/o male presents from [...] if concern Hydrocephalus Chronic WOODARD's - Revised WORK ADJUSTMENT INSTRUCTOR shunt DC planning - Can be DC'd [...] (36.1 C) (Temporal) Resp 16 Ht 5' 7" (1.702 m) Wt 240 lb (108.9 kg) [...] Hemorrhoids Hydrocephalus, adult (HCC) Kidney stone Neuropathy WORK ADJUSTMENT INSTRUCTOR (ventriculoperitoneal) shunt status Medications: sodium chloride warfarin 7.5 mg Oral Once baclofen 10 mg Oral TID bumetanide 2 mg Oral Daily potassium chloride 20 mEq Oral Daily sodium chloride flush 5-40 mL IntraVENous 2 times per day enoxaparin 1 mg/kg SubCUTAneous BID LABS: CBC: Recent Labs 10/21/21 0210 10/22/21 0404 10/23/21 0458 WBC 11.6* 9.4 10.3 RBC 3.93* 3.87* 4.08* HGB 10.9* 10.9* 11.6* HCT 33.6* 33.4* 35.1* MCV 85.6 86.3 85.9 RDW 17.3* 17.1* 17.4* PLT 404 369 450* BMP: Recent Labs 10/21/21 0210 10/22/21 0404 10/23/21 0458 NA 139 139 142 K 4.3 3.8 3.9 CL 105 106 104 CO2 29 26 27 BUN 18* 14 18* CREATININE 0.90 0.71 0.82 GLUCOSE 106* 110* 109* CALCIUM 9.1 8.9 9.6 ANIONGAP 6 7 10 LIVER PROFILE:No results for input(s): AST, ALT, BILITOT, ALKPHOS, LABALBU, PROT in the last 72 hours. PT/INR: Recent Labs 10/21/21 0210 10/22/21 0744 10/23/21 0458 PROTIME 11.5 11.8 12.2* [...] of Hospitalist Medicine Inpatient Medical Services PAGER: [phone] Nutrition rescreen completed. Pt referred to RD for foot ulcers. Occupational Therapy Facility/Department: [facility] MED [facility] Occupational Therapy Initial Assessment Name: Andrew Sifuentes : 1950 Date of Service: 10/23/2021 OT eval and treat orders received. Chart reviewed. Per notes pt from [facility], is Boaz lift at baseline, non-ambulatory, and requires assist for all ADLs. Will d/c OT orders. Elizabeth Gutierrez OT Physical Therapy Facility/Department: [address] Physical Therapy Initial Assessment Name: Andrew Sifuentes : 1950 Date of Service: 10/23/2021 PT eval and treat orders received. Chart reviewed. Per notes pt from [facility], is Boaz lift at baseline, non-ambulatory. Will d/c PT orders. Lloyd Silva PT [facility] Anticoagulation Management Service ([facility]) Inpatient Warfarin Consult HPI: Andrew Sifuentes is a 71 y.o. 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 Past Medical History: Diagnosis Date ED (erectile dysfunction) Hemorrhoids Hydrocephalus, adult (HCC) Kidney stone Neuropathy WORK ADJUSTMENT INSTRUCTOR (ventriculoperitoneal) shunt status Patient is newly referred to the [facility] clinic for warfarin management. Pt was referred by [place] B Niesha, ALLIED HEALTH PROFESSIONAL-TANDEM OPERATOR. Pt is on warfarin for DVT and [...] for this consult Lisa Forrest RPH, PharmD [facility] Consult Service is available daily [phone]. Please search for covering pharmacist name via LocalGuiding or Groups --> Pharmacy --> Anti-Coagulation Consult Pharmacist (on 3rd page). If no response via LocalGuiding, please page [phone]. Department of Podiatry Attending Consult Note Reason for Consult: Wound care Requesting Physician: MD Shailesh CHIEF COMPLAINT: Foot wounds HISTORY OF PRESENT ILLNESS: The patient is a 71 y.o. male with b/l foot wounds. Patient is awake , but not answering questions. Past Medical History: Diagnosis Date ED (erectile dysfunction) Hemorrhoids Hydrocephalus, adult (HCC) Kidney stone Neuropathy WORK ADJUSTMENT INSTRUCTOR (ventriculoperitoneal) shunt status Past Surgical History: Procedure [...] (36.2 C) (Temporal) Resp 16 Ht 5' 7" (1.702 m) Wt 240 lb (108.9 kg) [...] OT consulted. Will follow . Thank you. [facility] Respiratory Care Department Progress Note As part [...] addition to MRI Liver. Will see patient Sunday10/24/2021. Images from the original note were not included. Hospitalist Progress Note 10/22/2021 6:33 AM [phone]: Please page me ([phone]) or perfect serve me for patient care issues. [phone]: Please page IMS night Hospitalist for any [...] consider MRI if concern Hydrocephalus - Revised WORK ADJUSTMENT INSTRUCTOR shunt Interval History: No overnight issues. Denies chest pain, sob, abdominal pain, nausea, vomiting, diarrhea, constipation, fevers, or chills. Doing well without complaints Spoke to Daughter Melissa, questions answered. DW her about Podiatry and possible debridement of left heel Xrays reviewed with her Objective: Vitals: BP 115/78 Pulse 92 Temp 97.6 F (36.4 C) (Temporal) Resp 16 Ht 5' 7" (1.702 m) Wt 240 lb (108.9 kg) [...] no cyanosis or edema and unable to mover helper BLE, this is old Musculoskeletal: Muscle loss [...] Hemorrhoids Hydrocephalus, adult (HCC) Kidney stone Neuropathy WORK ADJUSTMENT INSTRUCTOR (ventriculoperitoneal) shunt status Medications: sodium chloride baclofen 10 mg Oral TID bumetanide 2 mg Oral Daily potassium chloride 20 mEq Oral Daily sodium chloride flush 5-40 mL IntraVENous 2 times per day enoxaparin 1 mg/kg SubCUTAneous BID ipratropium-albuterol 1 ampule Inhalation Q4H WA LABS: CBC: Recent Labs 10/21/210 10/22/21 0404 WBC 11.6* 9.4 RBC 3.93* [...] of Hospitalist Medicine Inpatient Medical Services PAGER: [phone] Images from the original note were not included. Hospitalist Progress Note 10/21/2021 5:31 PM [phone]: Please page me ([phone]) or perfect serve me for patient care issues. [phone]: Please page IMS night Hospitalist for any issues. Subjective: Admit Date: 10/21/2021 PCP: MONIKA STALEY MD Room#: [id number] Admitting Synopsis: 71 y/o male presents from [...] Will need chronic OAC Hydrocephalus - Revised WORK ADJUSTMENT INSTRUCTOR shunt Interval History: No overnight issues. Denies chest pain, sob, abdominal pain, nausea, vomiting, diarrhea, constipation, fevers, or chills. Spoke to the daughter Moon at length about her father's situation. POC reviewed with her. Objective: Vitals: BP 136/86 Pulse 94 Temp 97.1 F (36.2 C) (Temporal) Resp 18 Ht 5' 7" (1.702 m) Wt 240 lb (108.9 kg) [...] Hemorrhoids Hydrocephalus, adult (HCC) Kidney stone Neuropathy WORK ADJUSTMENT INSTRUCTOR (ventriculoperitoneal) shunt status Medications: sodium chloride baclofen [...] of Hospitalist Medicine Inpatient Medical Services PAGER: [phone] Family member Triny, sister to patient, called back to the hospital stating that she was returning a call from a provider. Her phone number is [phone] to speak with whomever was attempting to reach out to her. documented in this encounter [employer] Phone: 10-17-2021 Miscellaneous Notes Mr. Sifuentes missed his hospital stay follow-up appointment w. Dr. Lim today. Called to Reschedule. Could not get through. "Subscriber you have dialed not in service" - was the automated voice mail. Unable to leave . No other phone# available. Ramya Nergo 911 Emergency Services Dispatcher [facility] documented in this encounter [facility] 08-19-2021 Note [facility] 08-19-2021 Note [facility] 08-18-2021 Note [facility] 08-18-2021 Note [facility] 08-17-2021 Note [facility] 08-17-2021 Note [facility] 08-16-2021 Note [facility] 08-16-2021 Note HNO ID: [id number] Author: Katt Kelsey DO Service: Hospital Medicine Author Type: Physician Type: Plan of Care Filed: 08/16/2021 12:26 PM Note Text: Spoke with RN that line is a PICC. Katt Machuca DO [facility] 08/16/2021 12:26 PM [facility] 08-16-2021 Note [facility] 08-16-2021 Note [facility] 08-15-2021 Note [facility] 08-15-2021 Note [facility] 08-15-2021 Note [facility] 08-14-2021 Note [facility] 08-14-2021 Note [facility] 08-13-2021 Note [facility] 08-13-2021 Note [facility] 08-13-2021 Note [facility] 08-13-2021 Note HNO ID: [id number] Author: Interface Note Service: ? Author Type: ? Type: Progress Notes Filed: 08/13/2021 3:10 AM Note Text: Epic Scheduled Downtime: 08/13/2021 1:08:47 AM to 08/13/2021 2:53:47 AM [facility] 08-12-2021 Note [facility] 08-12-2021 Note [facility] 08-12-2021 Note [facility] 08-11-2021 Note [facility] 08-11-2021 Note [facility] 08-11-2021 Note [facility] 08[facility]11-2021 Note [facility] 08[facility]11-2021 Note [facility] 08[facility]11-2021 Note [facility] 08-10-2021 Note [facility] 08-10-2021 Note [facility] 08-10-2021 Note [facility] 08-10-2021 Note [facility] 08-09-2021 Note HNO ID: [id number] Author: Shannon Brooks RN Service: ? Author Type: Registered Nurse Type: Nursing Progress Note Filed: 08/09/2021 7:33 PM Note Text: Report called to unit [facility] 08-09-2021 Note [facility] 08-09-2021 Note [facility] 08-09-2021 Note [facility] 08-08-2021 Note [facility] 08-08-2021 Note [facility] 08-08-2021 Note [facility] 08-07-2021 Note [facility] 08-07-2021 Note [facility] 08[facility]07-2021 Note [facility] 08-07-2021 Note [facility] 08-07-2021 Note [facility] 08-06-2021 Note [facility] 08-06-2021 Note [facility] 08-06-2021 Note [facility] 08-05-2021 Note [facility] 08-05-2021 Note [facility] 08[facility]05-2021 Note [facility] 08-04-2021 Note [facility] 08[facility]04-2021 Note [facility] 08-04-2021 Note [facility] 08-03-2021 Note [facility] 08-03-2021 Note [facility] 08[facility]03-2021 Note [facility] 08-02-2021 Note [facility] 08-02-2021 Note [facility] 08-02-2021 Note [facility] 08-01-2021 Note [facility] 08-01-2021 Note [facility] 08-01-2021 Note [facility] 08-01-2021 Note [facility] 07-31-2021 Note [facility] 07-31-2021 Note [facility] 07-30-2021 Note [facility] 07[facility]30-2021 Note [facility] 07-30-2021 Note [facility] 07-29-2021 Note [facility] 07[facility]29-2021 Note [facility] 07-29-2021 Note [facility] 07-28-2021 Note [facility] 07[facility]28-2021 Note [facility] 07[facility]28-2021 Note [facility] 07-27-2021 Note [facility] 07-27-2021 Note [facility] 07-27-2021 Note [facility] 07-26-2021 Note [facility] 07-26-2021 Note [facility] 07[facility]26-2021 Note [facility] 07-26-2021 Note [facility] 07-26-2021 Note [facility] 07-25-2021 Note [facility] 07-25-2021 Note [facility] 07[facility]25-2021 Note [facility] 07-25-2021 Note [facility] 07-24-2021 Note [facility] 07-24-2021 Note [facility] 07-24-2021 Note [facility] 07-23-2021 Note [facility] 07-23-2021 Note [facility] 07-23-2021 Note [facility] 07-23-2021 Note [facility] 07-23-2021 Note [facility] 07-22-2021 Note [facility] 07-22-2021 Note [facility] 07-22-2021 Note [facility] 07-21-2021 Note [facility] 07-21-2021 Note [facility] 07-21-2021 Note [facility] 07-21-2021 History of Past i llness Narrative Problem Noted Date Resolved Date Fever 07/21/2021 07/28/2021 Last Assessment & Plan: See "Ventriculitis." Shock circulatory 06/15/2021 06/17/2021 Hypotension 06/15/2021 06/17/2021 Last Assessment & Plan: 06/08 medication induced 500 cc bolus Low dose levophed for MAP >65 off 06/16 Resolved Sepsis 06/14/2021 10/16/2021 Last Assessment & Plan: Assessment: Patient with history of fever, elevated WBC, RP hematoma WORK ADJUSTMENT INSTRUCTOR shunt tip grew anaerobic gram positive cocci 06/08/2021 PLAN: WORK ADJUSTMENT INSTRUCTOR shunt tip sent to [facility] main, awaiting cx Continue Meropenem per I.D [...] CTH showed improving Hydrocephalus - repeat CTH 2 stable - 2/2 VA shunt removal and VPS shunt placed- EVD removed 06/10 PLAN: - following CSF studies; 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 for 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 infection at this time - ID following- Continue antibiotics: Meropenem -CSF leak from EVD site, appreciate NSGY recs> stat repeat CTH on 06/07 d/t concern for CSF leak, cephalematoma, CTH unremarkable -Tolerating TF - SBT WTE - PICC line placed documented as of this encounter (statuses as of 10/17/2021) [facility]03-17-2022 [facility]03-16-2022 [facility]03-16-2022 [facility]03-16-2022 [facility]03-16-2022 [facility] 07-19-2021 [facility]03-15-2022 [facility]03-15-2022 [facility]03-14-2022 [facility]03-14-2022 [facility]03-13-2022 [facility]03-13-2022 [facility]03-12-2022 [facility]03-12-2022 [facility] 07-15-2021 [facility]03-11-2022 [facility]03-10-2022 [facility]03-10-2022 [facility]03[facility]10-2022 [facility]03-09-2022 [facility]03-09-2022 [facility]03-09-2022 [facility]03-09-2022 [facility] 07-12-2021 [facility]03-08-2022 [facility]03-07-2022 [facility]03-07-2022 [facility]03-07-2022 [facility]03-07-2022 [facility]03-06-2022 [facility]03-06-2022 [facility]03-05-2022 [facility] 07-09-2021 [facility]03-05-2022 [facility]03-05-2022 [facility]03-05-2022 NoteHNO ID: [id number] Author: Lizette Valderrama RN Service: Nursing Author Type: Registered Nurse Type: Nursing Progress Note Filed: 07/09/2021 1:41 AM Note Text: [facility] NoteHNO ID: [id number] Author: Lizette Valderrama RN Service: Nursing Author Type: Registered Nurse Type: Nursing Progress Note Filed: 07/08/2021 8:57 PM Note Text: [address] back to PACU [address] [place], [place] [address]403-04-2022 NoteHNO ID: [id number] Author: Sukhi Chery APRN.CNP Service: ? Author Type: Nurse Practitioner Type: Progress Notes Filed: 07/09/2021 6:46 PM Note Text: Connected Care Unit Progress Note Patient Name: Andrew Sifuentes Patient Facility: [facility] Admit Date 06/28/2021 Level of Care: Skilled [...] unspecified type, unspecified whether septic shock present ([facility]) - Dr. Mckenzie with ID Following - Continue on Vancomycin - PICC Line Intact - No fevers or chills per patient or staff (R53.81) Debility - Certify therapies - Maintain high falls risk precautions - pt/staff verbalize understanding validated via teach back - Monitor safety awareness Appointments for Next 60 Days Date Time Provider Location Dept Phone 07/21/2021 11:00 AM NICOLE LIM [phone] HPI: (Per Dr. Beltran) Andrew Sifuentes is being seen today for long term facility (SNF) admission AND management of weakness, tube feed, infected retroperitoneal infection and seizure. ? This is a 71 year old male who presents from [facility] with primary admitting diagnosis of Seizure, [...] CT brain concerning for hydrocephalus. Tip of WORK ADJUSTMENT INSTRUCTOR shunt was found to be in the right axillary region. Patient was intubated and underwent EVD (external ventricular drain) .2 noted to have Frontal cephalematoma around EVD [...] slow to respond. Ordered to transfer to [facility] ED for evaluation of neurological and pulmonary [...] changes in co (more content not included)... [facility]03-04-2022 [facility]03-04-2022 [facility]03-02-2022 NoteHNO ID: [id number] Author: Sukhi Chery APRN.VICTORIANO Service: ? Author Type: Nurse Practitioner Type: Progress Notes Filed: 07/09/2021 6:20 PM Note Text: Connected Care Unit Progress Note Patient Name: Andrew Sifuentes Patient Facility: [facility] Admit Date 06/28/2021 Level of Care: Skilled [...] unspecified type, unspecified whether septic shock present ([facility]) - Dr. Mckenzie with ID Following - Continue on Vancomycin - PICC Line Intact - No fevers or chills per patient or staff (R53.81) Debility - Certify therapies - Maintain high falls risk precautions - pt/staff verbalize understanding validated via teach back - Monitor safety awareness Appointments for Next 60 Days Date Time Provider Location Dept Phone 07/21/2021 11:00 AM NICOLE LIM [phone] HPI: (Per Dr. Beltran) Andrew Sifuentes is being seen today for long term facility (SNF) admission AND management of weakness, tube feed, infected retroperitoneal infection and seizure. ? This is a 71 year old male who presents from [facility] with primary admitting diagnosis of Seizure, [...] CT brain concerning for hydrocephalus. Tip of WORK ADJUSTMENT INSTRUCTOR shunt was found to be in the [...] Pharynx: Oropharynx is clear. (more content not included)...[facility]02-28-2022 NoteHNO ID: [id number] Author: Sukhi Chery APRN.VICTORIANO Service: ? Author Type: Nurse Practitioner Type: Progress Notes Filed: 07/09/2021 6:07 PM Note Text: Connected Care Unit Progress Note Patient Name: Andrew Sifuentes Patient Facility: [facility] Admit Date 06/28/2021 Level of Care: Skilled [...] whether septic shock present (HCC) - Dr. Mcknezie with ID Following - Continue on Vancomycin; recent trough was 30 but nursing notes it was drawn by manager of international as vancomycin was being infused; reordered trough - PICC Line Intact - No fevers or chills per patient or staff (R53.81) Debility - Certify therapies - Maintain high falls risk precautions - pt/staff verbalize understanding validated via teach back - Monitor safety awareness Appointments for Next 60 Days Date Time Provider Location Dept Phone 07/21/2021 11:00 AM CHANDL[facility]ICOLE [phone] HPI: (Per Dr. Beltran) Andrew Sifuentes is being seen today for long term facility (SNF) admission AND management of weakness, tube feed, infected retroperitoneal infection and seizure. ? This is a 71 year old male who presents from [facility] with primary admitting diagnosis of Seizure, [...] CT brain concerning for hydrocephalus. Tip of WORK ADJUSTMENT INSTRUCTOR shunt was found to be in the [...] to facility records. OBJECTIVE: Labs/diagnostics: 07/04/2021 Glucose=91 Bk=523 K=3.8 Ob=504 CO2=24 BUN=14 Creatinine=0.5 VFT=324 Ca=9.0 Protein,Total=6.7 Albumin=3.6 PsiRmia=385 AST=15 ALT=21 Bilirubin,Totall=0.5 WBC=10.7 RBC=4.04 Hgb=10.9 Hct=35.3 Gdhocprr=294 VancomycinTr (more content not included)...[facility]02-24-2022 NoteHNO ID: [id number] Author: Sukhi Chery APRN.CNP Service: ? Author Type: Nurse Practitioner Type: Progress Notes Filed: 07/09/2021 5:43 PM Note Text: Connected Care Unit Progress Note Patient Name: Andrew Sifuentes Patient Facility: [facility] Admit Date 06/28/2021 Level of Care: Skilled [...] Dept Phone 07/21/2021 11:00 AM NICO[facility] [phone] HPI: (Per Dr. Beltran) Andrew Sifuentes is being seen today for long term facility (SNF) admission AND management of weakness, tube feed, infected retroperitoneal infection and seizure. ? This is a 71 year old male who presents from [facility] with primary admitting diagnosis of Seizure, [...] CT brain concerning for hydrocephalus. Tip of WORK ADJUSTMENT INSTRUCTOR shunt was found to be in the [...] uncontrolled pain exacerbations. Medications: Medications listed in [facility] during SNF admission may not be current. Refer to facility record. Patient records, current medications, most recent labs, family/social history (unchanged) Reviewed. Refer to facility records. OBJECTIVE: Labs/diagnostics: 07/01/2021 Glucose=83 Zj=226 K=4.1 Lm=367 CO2=27 BUN=22 Creatinine=0.6 BZN=912 Ca=8.7 WBC=10.8 RBC=3.40 Hgb=9.3 Hct=29.9 Ubixyvey=497 Vital Signs: BP 128/80 Pulse 77 Temp 36.7 ?C (98 ?F) Resp 20 Ht 182.9 cm (6') Wt 113 kg (249 lb 3.2 oz) SpO2 96% BMI 33.80 kg/m? Physical Exam: Physical Exam Vitals reviewed. Constitutional: General: He is not in acute distress. (more content not included)...[facility]02-22-2022 [facility]02-22-2022 [facility]02-21-2022 [facility]02-21-2022 [facility]02-20-2022 [facility] 06-26-2021 [facility]02-19-2022 [facility]02-19-2022 [facility]02-18-2022 [facility]02[facility]18-2022 [facility]02-18-2022 [facility]02-17-2022 [facility]02-17-2022 [facility]02-17-2022 [facility] 06-22-2021 NoteHNO ID: [id number] Author: Xiomy England RN Service: Nursing Author Type: Registered Nurse Type: Nursing Progress Note Filed: 06/22/2021 7:22 PM Note Text: RT contacted as pt has wheezing auscultated and same auditory. For prn Treatment.[facility]02-16-2022 [facility]02-16-2022 [facility]02-16-2022 [facility]02-16-2022 [facility]02-16-2022 [facility]02-15-2022 [facility]02-15-2022 [facility]02-15-2022 [facility] 06-21-2021 [facility]02-14-2022 [facility]02-14-2022 [facility]02-14-2022 [facility]02-14-2022 [facility]02[facility]14-2022 [facility]02-13-2022 [facility]02-13-2022 [facility]02-13-2022 [facility] 06-19-2021 [facility]02-13-2022 [facility]02-12-2022 [facility]02-12-2022 [facility]02-12-2022 [facility]02-12-2022 [facility]02-12-2022 [facility]02-12-2022 [facility]02-12-2022 NoteHNO ID: [id number] Author: Interface Note Service: ? Author Type: ? Type: Progress Notes Filed: 06/18/2021 3:10 AM Note Text: Epic Scheduled Downtime: 06/18/2021 1:00:00 AM to 06/18/2021 2:27:00 [facility]02-11-20[facility]02-11-2022 [facility] 06-17-2021 [facility]02-11-2022 [facility]02-11-2022 [facility]02-10-2022 [facility]02-10-2022 [facility]02-10-2022 [facility]02-10-2022 [facility]02-10-2022 [facility]02-10-2022 [facility] 06-15-2021 [facility]02-09-2022 NoteHNO ID: [id number] Author: Lamonte Kline DO Service: Neurology ICU Author Type: Resident Type: Plan of Care Filed: 06/15/2021 6:21 PM Note Text: Patient's daughter Melissa updated on plan of care and critical condition, all questions answered.[facility]02-09-2022 [facility]02-09-2022 [facility]02-09-2022 [facility]02-09-2022 [facility]02-09-2022 [facility]02-09-2022 [facility] 06-15-2021 [facility]02-08-2022 [facility]02-08-2022 [facility]02-08-2022 [facility]02-08-2022 [facility]02-07-2022 [facility]02[facility]07-2022 [facility]02-07-2022 [facility]02-07-2022 [facility] 06-12-2021 [facility]02-06-2022 [facility]02-06-2022 [facility]02-05-2022 [facility]02[facility]05-2022 [facility]02-04-2022 [facility]02[facility]04-2022 [facility]02-04-2022 [facility]02-04-2022 [facility] 06-09-2021 [facility]02-03-2022 [facility]02-03-2022 [facility]02-03-2022 [facility]02-02-2022 [facility]02-02-2022 NoteHNO ID: [id number] Author: Luis Diaz RN Service: ? Author Type: Registered Nurse Type: Nursing Progress Note Filed: 06/08/2021 9:23 AM Note Text: Patient off the floor to OR at this time.[facility]02-02-2022 [facility]02-02-2022 [facility] 06-08-2021 NoteHNO ID: [id number] Author: Eloise Samuel RN Service: ? Author Type: Registered Nurse Type: Nursing Progress Note Filed: 06/08/2021 12:46 AM Note Text: Dr. Brito notified of changes throughout shift. No [facility] 06-07-2021 NoteHNO ID: [id number] Author: Eloise Samuel RN Service: ? 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 No new orders at this time.[facility]02-01-2022 [facility]02-01-2022 [facility]02-01-2022 [facility]02-01-2022 [facility]01-31-2022 [facility]01-31-2022 [facility]01-31-2022 [facility]01-31-2022 [facility] 06-05-2021 [facility]01-30-2022 [facility]01-30-2022 [facility]01-29-2022 [facility]01-29-2022 NoteHNO ID: [id number] Author: Jermaine Miller PA-C Service: Neurosurgery Author Type: Physician Carpenter Supervisor [employer] Type: Plan of Care Filed: 06/04/2021 1:59 PM Note Text: Discussed with Dr. Charles CT brain results. At this time, continue with EVD [facility] 06-04-2021 [facility]01-28-2022 [facility]01-28-2022 NoteHNO ID: [id number] Author: Mauricio Frank DO Service: Neurology ICU Author Type: Physician Type: Plan of Care Filed: 06/03/2021 2:38 PM Note Text: I spoke with Melissa and updated her over the phone. Mauricio Frank, [facility]01-28-2022 [facility]01-28-2022 [facility]01-27-2022 [facility]01-27-2022 [facility]01-27-2022 [facility]01-26-2022 [facility] 06-01-2021 [facility]01-26-2022 [facility]01-26-2022 [facility]01[facility]26-2022 [facility]01-25-2022 [facility]01[facility]25[facility]01-25-2022 [facility]01-25-2022 [facility] 05-31-2021 [facility] Diagnosis Leg swelling- Primary Swelling of limb Acute deep vein thrombosis (DVT) of proximal vein of lower extremity, unspecified laterality (HCC) DVT, lower extremity, recurrent, unspecified laterality (HCC) Moderate malnutrition (HCC) Malnutrition of moderate degree History of seizures Personal history of other disorders of nervous system and sense organs documented in this encounter [facility] Work Phone: Evaluation noteNo assessment information available [facility] Work Phone: Evaluation note* Diagnosis Other fatigue- Primary documented in this encounter [facility] Work Phone: Evaluation note* Diagnosis Heel ulceration, left, with unspecified severity (HCC)- Primary documented in this encounter [facility] Work Phone: Evaluation note* Diagnosis Fall, initial encounter- Primary Anticoagulated Encounter for long-term (current) use of 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 [facility] Work [facility]: [facility]* Diagnosis Left flank pain- Primary Abdominal pain, unspecified site Calculus of ureter Disease of prostate Unspecified disorder of prostate BPH with urinary obstruction Hypertrophy of prostate with urinary obstruction and other lower urinary tract symptoms (LUTS) documented in this encounter [facility] StarriserEvaluation note* Diagnosis Left flank pain Abdominal pain, unspecified site Calculus of ureter documented in this encounter [facility] StarriserEvaluation note* Diagnosis Left flank pain- Primary Abdominal pain, unspecified site BPH with urinary obstruction Hypertrophy of prostate with urinary obstruction and other lower urinary tract symptoms (LUTS) History of kidney stones documented in this encounter [facility] HealthInstructions* Name Dates Details Instructions not documented [id number] Work Phone: Instructions* Name Dates Details Instructions not documented [facility] [address] [place] Work Phone: Reason for referral (narrative)No reason for referral information availableWOhio[facility] Work Phone: Advance Directives No Advanced Directives Records FoundDocuments on File Type Date Recorded Patient Hardness Inspector Expl anation Advance Directives and Living Will Power of Ultrasound Supervisor Documents on File Type Date Recorded Patient Hardness Inspector Expl anation Advance Directive(s) 06/02/2021 2:45 PM [...] Maker Relationship: 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 Adult Children (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) Documents on File Type Date Recorded Patient Hardness Inspector Expl anation ACP-Advance Directive ACP-Power of Ultrasound Supervisor Latest Code Status on File Code Status Date Activated Date Inactivated Comments Full Code 10/21/2021 4:09 AM Healthcare Agents on File Name Relationship Healthcare Agent Relationshi p Communication Melissakb Sifuentes Child Primary Decision Maker deann Sifuentes Child Secondary Decision Maker Documents on File Type Date Recorded Patient Hardness Inspector Expl anation ACP-Advance Directive ACP-Power of Ultrasound Supervisor ACP-Do Not Resuscitate 11/01/2021 7:03 AM Latest Code Status on File Code Status Date Activated Date Inactivated Comments Full Code 10/21/2021 4:09 AM 10/29/2021 7:25 PM Healthcare Agents on File Name Relationship Healthcare Agent Relationshi p Communication Melissakb Dengyer Child Primary Decision Maker deann Sifuentes Child Secondary Decision Maker Documents on File Type Date Recorded Patient Hardness Inspector Expl anation ACP-Do Not Resuscitate 11/03/2021 10:15 AM ACP-Do Not Resuscitate 11/01/2021 7:03 AM Healthcare Agents on File Name Relationship Healthcare Agent Relationshi p Communication Melissa Sifuentes Child Primary Decision Maker deann Sifuentes Child Secondary Decision Maker Documents on File Type Date Recorded Patient Hardness Inspector Expl anation ACP-Do Not Resuscitate 11/03/2021 10:15 [...] Documents on File Type Date Recorded Patient Hardness Inspector Expl anation DNR (Do Not Resuscitate) 10/31/2021 DNR (Do Not Resuscitate) 10/21/2021 Documents on File Type Date Recorded Patient Hardness Inspector Expl anation DNR (Do Not Resuscitate) 10/31/2021 [...] WORK LABWORK Chief Complaint LAB WORK LABWORK HALFWAY LAB WORK HALFWAY LABWORK Chief Complaint LAB WORK LABWORK HALFWAY LAB WORK HALFWAY LABWORK LABWORK LABWORK HALFWAY LAB WORK HALFWAY LABWORK HALFWAY LAB WORK LABWORK HALFWAY LAB WORK LABWORK HALFWAY LABWORK Chief Complaint LAB WORK LABWORK HALFWAY LAB WORK HALFWAY LABWORK LABWORK LABWORK HALFWAY LAB WORK HALFWAY LABWORK HALFWAY LAB WORK LABWORK HALFWAY LAB WORK LABWORK HALFWAY LABWORK HALFWAY LABWORK LABWORK Chief Complaint LAB WORK LABWORK HALFWAY LAB WORK HALFWAY LABWORK LABWORK LABWORK HALFWAY LAB WORK HALFWAY LABWORK HALFWAY LAB WORK LABWORK HALFWAY LAB WORK LABWORK HALFWAY LABWORK HALFWAY LABWORK LABWORK HALFWAY LAB WORK Chief Complaint LABWORK HALFWAY LAB WORK HALFWAY LABWORK LABWORK LABWORK HALFWAY LAB WORK HALFWAY LABWORK HALFWAY LAB WORK LABWORK HALFWAY LAB WORK LABWORK HALFWAY LABWORK HALFWAY LABWORK LABWORK LABWORK HALFWAY LAB WORK Chief Complaint LABWORK HALFWAY LAB WORK HALFWAY LABWORK LABWORK LABWORK HALFWAY LAB WORK HALFWAY LABWORK HALFWAY LAB WORK LABWORK HALFWAY LAB WORK LABWORK HALFWAY LABWORK HALFWAY LABWORK LABWORK LABWORK HALFWAY LAB WORK LABWORK HALFWAY LABWORK HALFWAY LAB WORK HALFWAY LABWORK Chief Complaint HALFWAY LAB WOR K HALFWAY LABWORK LABWORK LABWORK HALFWAY LAB WORK HALFWAY LABWORK HALFWAY LAB WORK LABWORK HALFWAY LAB WORK LABWORK HALFWAY LABWORK HALFWAY LABWORK LABWORK LABWORK HALFWAY LAB WORK LABWORK HALFWAY LABWORK HALFWAY LAB WORK HALFWAY LABWORK HALFWAY LAB WORK Chief Complaint HALFWAY LABWORK LABWORK LABWORK HALFWAY LAB WORK HALFWAY LABWORK HALFWAY LAB WORK LABWORK HALFWAY LAB WORK LABWORK HALFWAY LABWORK HALFWAY LABWORK LABWORK LABWORK HALFWAY LAB WORK LABWORK HALFWAY LABWORK HALFWAY LAB WORK HALFWAY LABWORK LABWORK HALFWAY LAB WORK Chief Complaint HALFWAY LAB WOR K HALFWAY LABWORK HALFWAY LAB WORK LABWORK HALFWAY LAB WORK LABWORK HALFWAY LABWORK HALFWAY LABWORK LABWORK LABWORK HALFWAY LAB WORK LABWORK HALFWAY LABWORK HALFWAY LAB WORK HALFWAY LABWORK LABWORK LABWORK HALFWAY LAB WORK HALFWAY PATIENT HALFWAY LABWORK HALFWAY LABWORK Chief Complaint LABWORK HALFWAY LAB WORK LABWORK HALFWAY LABWORK HALFWAY LABWORK LABWORK LABWORK HALFWAY LAB WORK LABWORK HALFWAY LABWORK HALFWAY LAB WORK HALFWAY LABWORK LABWORK LABWORK HALFWAY LAB WORK HALFWAY PATIENT HALFWAY LABWORK HALFWAY LABWORK HALFWAY LAB WORK Chief Complaint LABWORK HALFWAY LABWORK HALFWAY LABWORK LABWORK LABWORK HALFWAY LAB WORK LABWORK HALFWAY LABWORK HALFWAY LAB WORK HALFWAY LABWORK LABWORK LABWORK HALFWAY LAB WORK HALFWAY PATIENT HALFWAY LABWORK HALFWAY LABWORK HALFWAY LAB WORK HALFWAY LAB WORK HALFWAY LAB WORK Chief Complaint LABWORK LABWORK HALFWAY LAB WORK HALFWAY PATIENT HALFWAY LABWORK HALFWAY LABWORK HALFWAY LAB WORK HALFWAY LAB WORK HALFWAY LAB WORK HALFWAY LABWORK HALFWAY LABWORK LABWORK HALFWAY LAB WORK LABWORK Chief Complaint HALFWAY LAB WOR K HALFWAY PATIENT HALFWAY LABWORK HALFWAY LABWORK HALFWAY LAB WORK HALFWAY LAB WORK HALFWAY LAB WORK HALFWAY LABWORK HALFWAY LABWORK LABWORK HALFWAY LAB WORK LABWORK HALFWAY LABWORK Chief Complaint HALFWAY PATIENT HALFWAY LABWORK HALFWAY LABWORK HALFWAY LAB WORK HALFWAY LAB WORK HALFWAY LAB WORK HALFWAY LABWORK HALFWAY LABWORK LABWORK HALFWAY LAB WORK LABWORK HALFWAY LABWORK HALFWAY LABWORK Chief Complaint HALFWAY LABWORK HALFWAY LAB WORK HALFWAY LAB WORK HALFWAY LAB WORK HALFWAY LABWORK HALFWAY LABWORK LABWORK HALFWAY LAB WORK LABWORK HALFWAY LABWORK HALFWAY LABWORK HALFWAY LABWORK Chief Complaint HALFWAY LABWORK HALFWAY LAB WORK HALFWAY LAB WORK HALFWAY LAB WORK HALFWAY LABWORK HALFWAY LABWORK LABWORK HALFWAY LAB WORK LABWORK HALFWAY LABWORK HALFWAY LABWORK HALFWAY LABWORK HALFWAY LABWORK Chief Complaint HALFWAY LABWORK LABWORK HALFWAY LAB WORK LABWORK HALFWAY LABWORK HALFWAY LABWORK HALFWAY LABWORK HALFWAY LABWORK HALFWAY LABWORK LABWORK HALFWAY LABWORK Chief Complaint LABWORK HALFWAY LAB WORK LABWORK HALFWAY LABWORK HALFWAY LABWORK HALFWAY LABWORK HALFWAY LABWORK HALFWAY LABWORK LABWORK LABWORK HALFWAY LABWORK HALFWAY LAB WORK HALFWAY LABWORK HALFWAY LAB WORK Chief Complaint LABWORK HALFWAY LAB WORK LABWORK HALFWAY LABWORK HALFWAY LABWORK HALFWAY LABWORK HALFWAY LABWORK HALFWAY LABWORK LABWORK LABWORK HALFWAY LABWORK HALFWAY LAB WORK HALFWAY LABWORK HALFWAY LAB WORK HALFWAY LABWORK Chief Complaint LABWORK HALFWAY LAB WORK LABWORK HALFWAY LABWORK HALFWAY LABWORK HALFWAY LABWORK HALFWAY LABWORK HALFWAY LABWORK LABWORK LABWORK HALFWAY LABWORK HALFWAY LAB WORK HALFWAY LABWORK HALFWAY LAB WORK HALFWAY LABWORK LABWORK Chief Complaint HALFWAY LABWORK HALFWAY LABWORK HALFWAY LABWORK HALFWAY LABWORK HALFWAY LABWORK LABWORK LABWORK HALFWAY LABWORK HALFWAY LAB WORK HALFWAY LABWORK HALFWAY LAB WORK HALFWAY LABWORK LABWORK HALFWAY LABWORK Chief Complaint HALFWAY LABWORK HALFWAY LABWORK HALFWAY LABWORK HALFWAY LABWORK HALFWAY LABWORK LABWORK LABWORK HALFWAY LABWORK HALFWAY LAB WORK HALFWAY LABWORK HALFWAY LAB WORK HALFWAY LABWORK LABWORK HALFWAY LABWORK LABWORK Chief Complaint HALFWAY LABWORK LABWORK LABWORK HALFWAY LABWORK HALFWAY LAB WORK HALFWAY LABWORK HALFWAY LAB WORK HALFWAY LABWORK LABWORK HALFWAY LABWORK LABWORK HALFWAY LAB WORK HALFWAY LAB WORK HALFWAY LABWORK Chief Complaint LABWORK HALFWAY LABWORK LABWORK HALFWAY LAB WORK HALFWAY LAB WORK HALFWAY LABWORK HALFWAY LABWORK HALFWAY LAB WORK HALFWAY LAB WORK HALFWAY LAB WORK LABWORK HALFWAY LABWORK Chief Complaint HALFWAY LAB WOR K HALFWAY LAB WORK HALFWAY LABWORK HALFWAY LABWORK HALFWAY LAB WORK HALFWAY LAB WORK HALFWAY LAB WORK LABWORK HALFWAY LABWORK LABWORK HALFWAY LAB WORK HALFWAY LAB WORK Chief Complaint HALFWAY LAB WOR K HALFWAY LABWORK HALFWAY LABWORK HALFWAY LAB WORK HALFWAY LAB WORK HALFWAY LAB WORK LABWORK HALFWAY LABWORK LABWORK HALFWAY LAB WORK HALFWAY LAB WORK Chief Complaint HALFWAY LABWORK HALFWAY LABWORK HALFWAY LAB WORK HALFWAY LAB WORK HALFWAY LAB WORK LABWORK HALFWAY LABWORK LABWORK HALFWAY LAB WORK HALFWAY LAB WORK HALFWAY LABWORK LABWORK LABWORK Chief Complaint HALFWAY LAB WOR K HALFWAY LAB WORK HALFWAY LAB WORK LABWORK HALFWAY LABWORK LABWORK HALFWAY LAB WORK HALFWAY LAB WORK HALFWAY LABWORK LABWORK LABWORK LABWORK LABWORK LABWORK Chief Complaint HALFWAY LAB WOR K LABWORK HALFWAY LABWORK LABWORK HALFWAY LAB WORK HALFWAY LAB WORK HALFWAY LABWORK LABWORK LABWORK LABWORK LABWORK HALFWAY LABWORK HALFWAY LAB WORK LABWORK HALFWAY LAB WORK HALFWAY LAB WORK Chief Complaint HALFWAY LAB WOR K LABWORK HALFWAY LABWORK LABWORK HALFWAY LAB WORK HALFWAY LAB WORK HALFWAY LABWORK LABWORK LABWORK LABWORK LABWORK HALFWAY LABWORK HALFWAY LAB WORK LABWORK HALFWAY LAB WORK HALFWAY LAB WORK HALFWAY LABWORK Chief Complaint HALFWAY LAB WOR K HALFWAY LAB WORK HALFWAY LABWORK LABWORK LABWORK LABWORK LABWORK HALFWAY LABWORK HALFWAY LAB WORK LABWORK HALFWAY LAB WORK HALFWAY LAB WORK HALFWAY LABWORK NUSING HOME LAB WORK Chief Complaint HALFWAY LAB WOR K HALFWAY LABWORK LABWORK LABWORK LABWORK LABWORK HALFWAY LABWORK HALFWAY LAB WORK LABWORK HALFWAY LAB WORK HALFWAY LAB WORK HALFWAY LABWORK NUSING HOME LAB WORK LABWORK Chief Complaint HALFWAY LAB WOR K HALFWAY LABWORK LABWORK LABWORK LABWORK LABWORK HALFWAY LABWORK HALFWAY LAB WORK LABWORK HALFWAY LAB WORK HALFWAY LAB WORK HALFWAY LABWORK NUSING HOME LAB WORK HALFWAY LABWORK LABWORK Chief Complaint LABWORK HALFWAY LAB WORK HALFWAY LAB WORK HALFWAY LABWORK NUSING HOME LAB WORK HALFWAY LABWORK LABWORK HALFWAY LABWORK HALFWAY LAB WORK LABWORK LABWORK Chief Complaint NUSING HOME LAB WORK HALFWAY LABWORK LABWORK HALFWAY LABWORK HALFWAY LAB WORK LABWORK HALFWAY LAB WORK LABWORK LABWORK Chief Complaint NUSING HOME LAB WORK HALFWAY LABWORK LABWORK HALFWAY LABWORK HALFWAY LAB WORK LABWORK HALFWAY LAB WORK LABWORK HALFWAY LAB WORK LABWORK Chief Complaint HALFWAY LABWORK LABWORK HALFWAY LABWORK HALFWAY LAB WORK LABWORK HALFWAY LAB WORK LABWORK HALFWAY LAB WORK LABWORK LABWORK Chief Complaint HALFWAY LABWORK LABWORK HALFWAY LABWORK HALFWAY LAB WORK LABWORK HALFWAY LAB WORK LABWORK HALFWAY LAB WORK LABWORK LABWORK LABWORK Chief Complaint HALFWAY LABWORK LABWORK HALFWAY LABWORK HALFWAY LAB WORK LABWORK HALFWAY LAB WORK LABWORK HALFWAY LAB WORK LABWORK LABWORK LABWORK LABWORK Chief Complaint HALFWAY LABWORK LABWORK HALFWAY LABWORK HALFWAY LAB WORK LABWORK HALFWAY LAB WORK LABWORK HALFWAY LAB WORK LABWORK LABWORK HALFWAY LAB WORK LABWORK LABWORK LABWORK Chief Complaint LABWORK HALFWAY LABWORK HALFWAY LAB WORK LABWORK HALFWAY LAB WORK LABWORK HALFWAY LAB WORK LABWORK LABWORK HALFWAY LAB WORK LABWORK LABWORK LABWORK LABWORK LABWORK LABWORK LABWORK Chief Complaint HALFWAY LABWORK HALFWAY LAB WORK LABWORK HALFWAY LAB WORK LABWORK HALFWAY LAB WORK LABWORK LABWORK HALFWAY LAB WORK LABWORK LABWORK LABWORK LABWORK LABWORK LABWORK LABWORK LABWORK Chief Complaint LABWORK HALFWAY LAB WORK LABWORK HALFWAY LAB WORK LABWORK LABWORK HALFWAY LAB WORK LABWORK LABWORK LABWORK LABWORK LABWORK LABWORK LABWORK LABWORK LABWORK Chief Complaint HALFWAY LABWORK LABWORK LABWORK LABWORK LABWORK HALFWAY LABWORK HALFWAY LAB WORK LABWORK HALFWAY LAB WORK HALFWAY LAB WORK HALFWAY LABWORK NUSING HOME LAB WORK HALFWAY LABWORK LABWORK HALFWAY LABWORK HALFWAY LAB WORK Chief Complaint Admit Date HALFWAY LAB WORK March 13, 2024 5:00am LABWORK March 14, 2024 5 :00am HALFWAY LAB WORK March 17 4 5:00am HALFWAY LAB WORK March 18 5:00am HALFWAY LAB WORK March 19 4 4:00am HALFWAY LAB WORK March 20 5:00am HALFWAY LAB WORK March 24 5:00am HALFWAY LAB WORK March 27 4 5:00am LABWORK March 31, 2024 5:00am HALFWAY LAB WORK April 04 4 5:00am LABWORK April 07, 2024 5 :00am HALFWAY LAB WORK April 10, 2024 5:00am HALFWAY LAB WORK April 14, 2024 5:00am HALFWAY LAB WORK April 17 5:00am LABWORK April 21, 2024 5:00am HALFWAY LAB WORK April 24 4 4:00am LABWORK April 28, 2024 5:00am HALFWAY LAB WORK Joo 26th, 202 4 4:00am HALFWAY LAB WORK May 05 5:00am HALFWAY LAB WORK May 08, 2024 5:00am HALFWAY LAB WORK May 09, 2024 4:00am LABWORK May 12, 2024 5: 00am HALFWAY LAB WORK May 15, 2024 5:00am HALFWAY LAB WORK May 19, 2024 4:00am HALFWAY LAB WORK May 20, 2024 5:00am HALFWAY LAB WORK May 22, 2024 5:00am LABWORK May 26, 2024 5 :00am HALFWAY LAB WORK May 29, 2024 5:00am HALFWAY LAB WORK June 02, 2024 5:00am HALFWAY LAB WORK June 05, 2024 5:00am LABWORK June 09, 2024 5 :00am HALFWAY LAB WORK June 12, 2024 5:00am HALFWAY LAB WORK June 16 5:00am HALFWAY LAB WORK June 19 5:00am LABWORK June 23, 2024 5:00am HALFWAY LAB WORK June 26 5:00am HALFWAY LAB WORK June 30 5:00am Chief Complaint Admit Date LABWORK April 07, 2024 5 :00am HALFWAY LAB WORK April 10, 2024 5:00am HALFWAY LAB WORK April 14, 2024 5:00am HALFWAY LAB WORK April 17 5:00am LABWORK April 21, 2024 5:00am HALFWAY LAB WORK April 24 4:00am LABWORK April 28, 2024 5:00am HALFWAY LAB WORK May 01 4:00am HALFWAY LAB WORK May 05 5:00am HALFWAY LAB WORK May 08, 2024 5:00am HALFWAY LAB WORK May 09, 2024 4:00am LABWORK May 12, 2024 5: 00am HALFWAY LAB WORK May 15, 2024 5:00am HALFWAY LAB WORK May 19, 2024 4:00am HALFWAY LAB WORK May 20, 2024 5:00am HALFWAY LAB WORK May 22, 2024 5:00am LABWORK May 26, 2024 5 :00am HALFWAY LAB WORK May 29, 2024 5:00am HALFWAY LAB WORK June 02, 2024 5:00am HALFWAY LAB WORK June 05, 2024 5:00am LABWORK June 09, 2024 5 :00am HALFWAY LAB WORK June 12, 2024 5:00am HALFWAY LAB WORK June 16 5:00am HALFWAY LAB WORK June 19 5:00am LABWORK June 23, 2024 5:00am HALFWAY LAB WORK June 26 5:00am HALFWAY LAB WORK June 30 5:00am HALFWAY LAB WORK July 03 5:00am HALFWAY LAB WORK July 07, 2024 4: 00am LABWORK July 11, 2024 5:00 am LABWORK July 14, 2024 5:0 0am HALFWAY LAB WORK July 17, 2024 4 :00am HALFWAY LAB WORK July 24, 2024 4 :00am Chief Complaint Admit Date HALFWAY LAB WORK April 14, 2024 5:00am HALFWAY LAB WORK April 17 5:00am LABWORK April 21, 2024 5:00am HALFWAY LAB WORK April 24 4:00am LABWORK April 28, 2024 5:00am HALFWAY LAB WORK May 01 4:00am HALFWAY LAB WORK May 05 5:00am HALFWAY LAB WORK May 08, 2024 5:00am HALFWAY LAB WORK May 09, 2024 4:00am LABWORK May 12, 2024 5: 00am HALFWAY LAB WORK May 15, 2024 5:00am HALFWAY LAB WORK May 19, 2024 4:00am HALFWAY LAB WORK May 20, 2024 5:00am HALFWAY LAB WORK May 22, 2024 5:00am LABWORK May 26, 2024 5 :00am HALFWAY LAB WORK May 29, 2024 5:00am HALFWAY LAB WORK June 02, 2024 5:00am HALFWAY LAB WORK June 05, 2024 5:00am LABWORK June 09, 2024 5 :00am HALFWAY LAB WORK June 12, 2024 5:00am HALFWAY LAB WORK June 16 5:00am HALFWAY LAB WORK June 19 5:00am LABWORK June 23, 2024 5:00am HALFWAY LAB WORK June 26 5:00am HALFWAY LAB WORK June 30 5:00am HALFWAY LAB WORK July 03 5:00am HALFWAY LAB WORK July 07, 2024 4: 00am LABWORK July 11, 2024 5:00 am LABWORK July 14, 2024 5:0 0am HALFWAY LAB WORK July 17, 2024 4 :00am HALFWAY LAB WORK July 24, 2024 4 :00am LABWORK July 25, 2024 5:0 0am Chief Complaint Admit Date HALFWAY LAB WORK April 14, 2024 5:00am HALFWAY LAB WORK April 17 5:00am LABWORK April 21, 2024 5:00am HALFWAY LAB WORK April 24 4:00am LABWORK April 28, 2024 5:00am HALFWAY LAB WORK May 01 4:00am HALFWAY LAB WORK May 05 5:00am HALFWAY LAB WORK May 08, 2024 5:00am HALFWAY LAB WORK May 09, 2024 4:00am LABWORK May 12, 2024 5: 00am HALFWAY LAB WORK May 15, 2024 5:00am HALFWAY LAB WORK May 19, 2024 4:00am HALFWAY LAB WORK May 20, 2024 5:00am HALFWAY LAB WORK May 22, 2024 5:00am LABWORK May 26, 2024 5 :00am HALFWAY LAB WORK May 29, 2024 5:00am HALFWAY LAB WORK June 02, 2024 5:00am HALFWAY LAB WORK June 05, 2024 5:00am LABWORK June 09, 2024 5 :00am HALFWAY LAB WORK June 12, 2024 5:00am HALFWAY LAB WORK June 16 5:00am HALFWAY LAB WORK June 19 5:00am LABWORK June 23, 2024 5:00am HALFWAY LAB WORK June 26 5:00am HALFWAY LAB WORK June 30 5:00am HALFWAY LAB WORK July 03 5:00am HALFWAY LAB WORK July 07, 2024 4: 00am LABWORK July 11, 2024 5:00 am LABWORK July 14, 2024 5:0 0am HALFWAY LAB WORK July 17, 2024 4 :00am HALFWAY LAB WORK July 21, 2024 5 :00am HALFWAY LAB WORK July 24, 2024 4 :00am LABWORK July 25, 2024 5:0 0am HALFWAY LAB WORK July 31, 2024 4 :00am Chief Complaint Admit Date HALFWAY LAB WORK April 17 5:00am LABWORK April 21, 2024 5:00am HALFWAY LAB WORK April 24 4:00am LABWORK April 28, 2024 5:00am HALFWAY LAB WORK May 01 4:00am HALFWAY LAB WORK May 05 5:00am HALFWAY LAB WORK May 08, 2024 5:00am HALFWAY LAB WORK May 09, 2024 4:00am LABWORK May 12, 2024 5: 00am HALFWAY LAB WORK May 15, 2024 5:00am HALFWAY LAB WORK May 19, 2024 4:00am HALFWAY LAB WORK May 20, 2024 5:00am HALFWAY LAB WORK May 22, 2024 5:00am LABWORK May 26, 2024 5 :00am HALFWAY LAB WORK May 29, 2024 5:00am HALFWAY LAB WORK June 02, 2024 5:00am HALFWAY LAB WORK June 05, 2024 5:00am LABWORK June 09, 2024 5 :00am HALFWAY LAB WORK June 12, 2024 5:00am HALFWAY LAB WORK June 16 5:00am HALFWAY LAB WORK June 19 5:00am LABWORK June 23, 2024 5:00am HALFWAY LAB WORK June 26 5:00am HALFWAY LAB WORK June 30 5:00am HALFWAY LAB WORK July 03 5:00am HALFWAY LAB WORK July 07, 2024 4: 00am LABWORK July 11, 2024 5:00 am LABWORK July 14, 2024 5:0 0am HALFWAY LAB WORK July 17, 2024 4 :00am HALFWAY LAB WORK July 21, 2024 5 :00am HALFWAY LAB WORK July 24, 2024 4 :00am LABWORK July 25, 2024 5:0 0am HALFWAY LAB WORK July 28, 2024 5 :00am HALFWAY LAB WORK July 31, 2024 4 :00am Chief Complaint Admit Date HALFWAY LAB WORK April 24 4:00am LABWORK April 28, 2024 5:00am HALFWAY LAB WORK May 01 4:00am HALFWAY LAB WORK May 05 5:00am HALFWAY LAB WORK May 08, 2024 5:00am HALFWAY LAB WORK May 09, 2024 4:00am LABWORK May 12, 2024 5: 00am HALFWAY LAB WORK May 15, 2024 5:00am HALFWAY LAB WORK May 19, 2024 4:00am HALFWAY LAB WORK May 20, 2024 5:00am HALFWAY LAB WORK May 22, 2024 5:00am LABWORK May 26, 2024 5 :00am HALFWAY LAB WORK May 29, 2024 5:00am HALFWAY LAB WORK June 02, 2024 5:00am HALFWAY LAB WORK June 05, 2024 5:00am LABWORK June 09, 2024 5 :00am HALFWAY LAB WORK June 12, 2024 5:00am HALFWAY LAB WORK June 16 5:00am HALFWAY LAB WORK June 19 5:00am LABWORK June 23, 2024 5:00am HALFWAY LAB WORK June 26 5:00am HALFWAY LAB WORK June 30 5:00am HALFWAY LAB WORK July 03 5:00am HALFWAY LAB WORK July 07, 2024 4: 00am LABWORK July 11, 2024 5:00 am LABWORK July 14, 2024 5:0 0am HALFWAY LAB WORK July 17, 2024 4 :00am HALFWAY LAB WORK July 21, 2024 5 :00am HALFWAY LAB WORK July 24, 2024 4 :00am LABWORK July 25, 2024 5:0 0am HALFWAY LAB WORK July 28, 2024 5 :00am HALFWAY LAB WORK July 31, 2024 4 :00am LABWORK August 04, 2024 5:0 0am Chief Complaint Admit Date HALFWAY LAB WORK May 15, 2024 5:00am HALFWAY LAB WORK May 19, 2024 4:00am HALFWAY LAB WORK May 20, 2024 5:00am HALFWAY LAB WORK May 22, 2024 5:00am LABWORK May 26, 2024 5 :00am HALFWAY LAB WORK May 29, 2024 5:00am HALFWAY LAB WORK June 02, 2024 5:00am HALFWAY LAB WORK June 05, 2024 5:00am LABWORK June 09, 2024 5 :00am HALFWAY LAB WORK June 12, 2024 5:00am HALFWAY LAB WORK June 16 5:00am HALFWAY LAB WORK June 19 5:00am LABWORK June 23, 2024 5:00am HALFWAY LAB WORK June 26 5:00am HALFWAY LAB WORK June 30 5:00am HALFWAY LAB WORK July 03 5:00am HALFWAY LAB WORK July 07, 2024 4: 00am LABWORK July 11, 2024 5:00 am LABWORK July 14, 2024 5:0 0am HALFWAY LAB WORK July 17, 2024 4 :00am HALFWAY LAB WORK July 21, 2024 5 :00am HALFWAY LAB WORK July 24, 2024 4 :00am LABWORK July 25, 2024 5:0 0am HALFWAY LAB WORK July 28, 2024 5 :00am HALFWAY LAB WORK July 31, 2024 4 :00am LABWORK August 04, 2024 5:0 0am LABWORK August 07, 2024 5:00 am HALFWAY LAB WORK August 11, 2024 5: 00am HALFWAY LAB WORK August 14, 2024 5 :00am HALFWAY LAB WORK August 18, 2024 5 :00am Chief Complaint Admit Date HALFWAY LAB WORK May 20, 2024 5:00am HALFWAY LAB WORK May 22, 2024 5:00am LABWORK May 26, 2024 5 :00am HALFWAY LAB WORK May 29, 2024 5:00am HALFWAY LAB WORK June 02, 2024 5:00am HALFWAY LAB WORK June 05, 2024 5:00am LABWORK June 09, 2024 5 :00am HALFWAY LAB WORK June 12, 2024 5:00am HALFWAY LAB WORK June 16 5:00am HALFWAY LAB WORK June 19 5:00am LABWORK June 23, 2024 5:00am HALFWAY LAB WORK June 26 5:00am HALFWAY LAB WORK June 30 5:00am HALFWAY LAB WORK July 03 5:00am HALFWAY LAB WORK July 07, 2024 4: 00am LABWORK July 11, 2024 5:00 am LABWORK July 14, 2024 5:0 0am HALFWAY LAB WORK July 17, 2024 4 :00am HALFWAY LAB WORK July 21, 2024 5 :00am HALFWAY LAB WORK July 24, 2024 4 :00am LABWORK July 25, 2024 5:0 0am HALFWAY LAB WORK July 28, 2024 5 :00am HALFWAY LAB WORK July 31, 2024 4 :00am LABWORK August 04, 2024 5:0 0am LABWORK August 07, 2024 5:00 am HALFWAY LAB WORK August 11, 2024 5: 00am HALFWAY LAB WORK August 14, 2024 5 :00am HALFWAY LAB WORK August 18, 2024 5 :00am LABWORK August 28, 2024 5:0 0am Chief Complaint Admit Date HALFWAY LAB WORK May 22, 2024 5:00am LABWORK May 26, 2024 5 :00am HALFWAY LAB WORK May 29, 2024 5:00am HALFWAY LAB WORK June 02, 2024 5:00am HALFWAY LAB WORK June 05, 2024 5:00am LABWORK June 09, 2024 5 :00am HALFWAY LAB WORK June 12, 2024 5:00am HALFWAY LAB WORK June 16 5:00am HALFWAY LAB WORK June 19 5:00am LABWORK June 23, 2024 5:00am HALFWAY LAB WORK June 26 5:00am HALFWAY LAB WORK June 30 5:00am HALFWAY LAB WORK July 03 5:00am HALFWAY LAB WORK July 07, 2024 4: 00am LABWORK July 11, 2024 5:00 am LABWORK July 14, 2024 5:0 0am HALFWAY LAB WORK July 17, 2024 4 :00am HALFWAY LAB WORK July 21, 2024 5 :00am HALFWAY LAB WORK July 24, 2024 4 :00am LABWORK July 25, 2024 5:0 0am HALFWAY LAB WORK July 28, 2024 5 :00am HALFWAY LAB WORK July 31, 2024 4 :00am LABWORK August 04, 2024 5:0 0am LABWORK August 07, 2024 5:00 am HALFWAY LAB WORK August 11, 2024 5: 00am HALFWAY LAB WORK August 14, 2024 5 :00am HALFWAY LAB WORK August 18, 2024 5 :00am HALFWAY LAB WORK August 21, 2024 5 :00am LABWORK August 28, 2024 5:0 0am LABWORK September 01, 2024 5:0 0am Chief Complaint Admit Date HALFWAY LAB WORK June 05, 2024 5:00am LABWORK June 09, 2024 5 :00am HALFWAY LAB WORK June 12, 2024 5:00am HALFWAY LAB WORK June 16 5:00am HALFWAY LAB WORK June 19 5:00am LABWORK June 23, 2024 5:00am HALFWAY LAB WORK June 26 5:00am HALFWAY LAB WORK June 30 5:00am HALFWAY LAB WORK July 03 5:00am HALFWAY LAB WORK July 07, 2024 4: 00am LABWORK July 11, 2024 5:00 am LABWORK July 14, 2024 5:0 0am HALFWAY LAB WORK July 17, 2024 4 :00am HALFWAY LAB WORK July 21, 2024 5 :00am HALFWAY LAB WORK July 24, 2024 4 :00am LABWORK July 25, 2024 5:0 0am HALFWAY LAB WORK July 28, 2024 5 :00am HALFWAY LAB WORK July 31, 2024 4 :00am LABWORK August 04, 2024 5:0 0am LABWORK August 07, 2024 5:00 am HALFWAY LAB WORK August 11, 2024 5: 00am HALFWAY LAB WORK August 14, 2024 5 :00am HALFWAY LAB WORK August 18, 2024 5 :00am HALFWAY LAB WORK August 21, 2024 5 :00am HALFWAY LAB WORK August 25, 2024 4 :00am LABWORK August 28, 2024 5:0 0am LABWORK September 01, 2024 5:0 0am LABWORK September 04, 2024 5:00am Chief Complaint Admit Date HALFWAY LAB WORK June 05, 2024 5:00am LABWORK June 09, 2024 5 :00am HALFWAY LAB WORK June 12, 2024 5:00am HALFWAY LAB WORK June 16 5:00am HALFWAY LAB WORK June 19 5:00am LABWORK June 23, 2024 5:00am HALFWAY LAB WORK June 26 5:00am HALFWAY LAB WORK June 30 5:00am HALFWAY LAB WORK July 03 5:00am HALFWAY LAB WORK July 07, 2024 4: 00am LABWORK July 11, 2024 5:00 am LABWORK July 14, 2024 5:0 0am HALFWAY LAB WORK July 17, 2024 4 :00am HALFWAY LAB WORK July 21, 2024 5 :00am HALFWAY LAB WORK July 24, 2024 4 :00am LABWORK July 25, 2024 5:0 0am HALFWAY LAB WORK July 28, 2024 5 :00am HALFWAY LAB WORK July 31, 2024 4 :00am LABWORK August 04, 2024 5:0 0am LABWORK August 07, 2024 5:00 am HALFWAY LAB WORK August 11, 2024 5: 00am HALFWAY LAB WORK August 14, 2024 5 :00am HALFWAY LAB WORK August 18, 2024 5 :00am HALFWAY LAB WORK August 21, 2024 5 :00am HALFWAY LAB WORK August 25, 2024 4 :00am LABWORK August 28, 2024 5:0 0am LABWORK September 01, 2024 5:0 0am LABWORK September 04, 2024 5:00am LABWORK September 15, 2024 5:00a m Chief Complaint Admit HALFWAY LAB WORK June 19 5:00am LABWORK June 23, 2024 5:00am HALFWAY LAB WORK June 26 5:00am HALFWAY LAB WORK June 30 5:00am HALFWAY LAB WORK July 03 5:00am HALFWAY LAB WORK July 07, 2024 4: 00am LABWORK July 11, 2024 5:00 am LABWORK July 14, 2024 5:0 0am HALFWAY LAB WORK July 17, 2024 4 :00am HALFWAY LAB WORK July 21, 2024 5 :00am HALFWAY LAB WORK July 24, 2024 4 :00am LABWORK July 25, 2024 5:0 0am HALFWAY LAB WORK July 28, 2024 5 :00am HALFWAY LAB WORK July 31, 2024 4 :00am LABWORK August 04, 2024 5:0 0am LABWORK August 07, 2024 5:00 am HALFWAY LAB WORK August 11, 2024 5: 00am HALFWAY LAB WORK August 14, 2024 5 :00am HALFWAY LAB WORK August 18, 2024 5 :00am HALFWAY LAB WORK August 21, 2024 5 :00am HALFWAY LAB WORK August 25, 2024 4 :00am LABWORK August 28, 2024 5:0 0am LABWORK September 01, 2024 5:0 0am LABWORK September 04, 2024 5:00am HALFWAY LAB WORK September 08, 2024 4:00 am HALFWAY LAB WORK September 11, 2024 5:00 am LABWORK September 15, 2024 5:00a m HALFWAY LAB WORK September 25, 2024 5:0 0am HALFWAY LAB WORK September 30, 2024 4:0 0am Chief Complaint Admit Date HALFWAY LAB WORK June 12, 2024 5:00am HALFWAY LAB WORK June 16 5:00am HALFWAY LAB WORK June 19 5:00am LABWORK June 23, 2024 5:00am HALFWAY LAB WORK June 26 5:00am HALFWAY LAB WORK June 30 5:00am HALFWAY LAB WORK July 03 5:00am HALFWAY LAB WORK July 07, 2024 4: 00am LABWORK July 11, 2024 5:00 am LABWORK July 14, 2024 5:0 0am HALFWAY LAB WORK July 17, 2024 4 :00am HALFWAY LAB WORK July 21, 2024 5 :00am HALFWAY LAB WORK July 24, 2024 4 :00am LABWORK July 25, 2024 5:0 0am HALFWAY LAB WORK July 28, 2024 5 :00am HALFWAY LAB WORK July 31, 2024 4 :00am LABWORK August 04, 2024 5:0 0am LABWORK August 07, 2024 5:00 am HALFWAY LAB WORK August 11, 2024 5: 00am HALFWAY LAB WORK August 14, 2024 5 :00am HALFWAY LAB WORK August 18, 2024 5 :00am HALFWAY LAB WORK August 21, 2024 5 :00am HALFWAY LAB WORK August 25, 2024 4 :00am LABWORK August 28, 2024 5:0 0am LABWORK September 01, 2024 5:0 0am LABWORK September 04, 2024 5:00am HALFWAY LAB WORK September 08, 2024 4:00 am LABWORK September 15, 2024 5:00a m Chief Complaint Admit Date HALFWAY LAB WORK July 07, 2024 4: 00am LABWORK July 11, 2024 5:00 am LABWORK July 14, 2024 5:0 0am HALFWAY LAB WORK July 17, 2024 4 :00am HALFWAY LAB WORK July 21, 2024 5 :00am HALFWAY LAB WORK July 24, 2024 4 :00am LABWORK July 25, 2024 5:0 0am HALFWAY LAB WORK July 28, 2024 5 :00am HALFWAY LAB WORK July 31, 2024 4 :00am LABWORK August 04, 2024 5:0 0am LABWORK August 07, 2024 5:00 am HALFWAY LAB WORK August 11, 2024 5: 00am HALFWAY LAB WORK August 14, 2024 5 :00am HALFWAY LAB WORK August 18, 2024 5 :00am HALFWAY LAB WORK August 21, 2024 5 :00am HALFWAY LAB WORK August 25, 2024 4 :00am LABWORK August 28, 2024 5:0 0am LABWORK September 01, 2024 5:0 0am LABWORK September 04, 2024 5:00am HALFWAY LAB WORK September 08, 2024 4:00 am HALFWAY LAB WORK September 11, 2024 5:00 am LABWORK September 15, 2024 5:00a m HALFWAY LAB WORK September 18, 2024 5:0 0am HALFWAY LAB WORK September 22, 2024 5:0 0am HALFWAY LAB WORK September 25, 2024 5:0 0am HALFWAY LAB WORK September 30, 2024 4:0 0am HALFWAY LAB WORK October 02, 2024 5:0 0am HALFWAY LAB WORK October 09, 2024 5:0 0am Reason for Referral Specialty Diagnoses / Procedures Referred By Contac t Referred To Contact Urology Diagnoses [place] [address] [place] [address] [facility] [address] [place] [address] Referral ID Status Reason Start Date Expiration Date V isits Requested Visits Authorized [id number] Open Specialty Services Required 11/01/2021 11/01/2022 1 1 Scheduling Instructions [facility] [address] , [address] [place], [place] [address] Specialty Diagnoses / Procedures Referred By Contac t Referred To Contact IP Unit Diagnoses Heel ulceration, left, with unspecified severity (HCC) Henry Hidalgo PA [address] [place] [address] [facility] [address] [place] [id number] Referral ID Status Reason Start Date Expiration Date V isits Requested Visits Authorized [id number] Open Specialty Services Required 12/22/2021 12/22/2022 1 1 Scheduling Instructions [facility] - [facility] [address] [place] [id number] Comments Please use the parking lot located on [facility] or [employer]. There are handicap parking spots located in a small lot beside the wound care entrance off of [facility]. Please be advised there is a small incline from those handicap spots to our main door. Bring photo ID and insurance card to photocopy. Wear loose fitting clothing (to easily access wound). Bring list of medications (or can be sent by office). Check in at Registration for your first visit. Please call us directly with any questions [phone]. We look forward to helping you heal. Specialty Diagnoses / Procedures Referred By Contac t Referred To Contact Radiology Diagnoses Left flank pain Calculus of ureter Procedures CT abdomen pelvis wo IV contrast Rebecca Buck MD [address] [place] [address] Referral ID Status Reason Start Date Expiration Date V isits Requested Visits Authorized [id number] Pending Review 08/13/2023 08/12/2024 1 1 Referral ID Status Reason Start Date Expiration Date Visits Re quested Visits Authorized [id number] Closed 08/17/2023 09/16/2023 1 1 Additional Source Comments Source Comments (unrecognize d section and content) In the event this informatio n is protected by the Federal Confidentiality of Alcohol and Drug Abuse Patient Records regulations: The Federal rules restrict any use of the information to criminally investigate or prosecute any alcohol or drug abuse patient.[facility] the event this information is protected by the Federal Confidentiality of Alcohol and Drug Abuse Patient Records regulations: The Federal rules restrict any use of the information to criminally investigate or prosecute any alcohol or drug abuse patient.[facility] (unrecognized sect ion and content) No Status Records FoundNo Status Records FoundNo Status Records FoundNo Status Records FoundNo Status Records FoundNo Status Records FoundNo Status Records FoundNo Status Records FoundNo Status Records FoundNo Status Records Found INFORMATION SOURCE (unrecogn ized section and content) DATE CREATED AUTHOR 05/20/2021 [facility] DATE CREATED AUTHOR AUTHOR'S ORGANIZ ATION 06/07/2021 [facility] DATE CREATED AUTHOR AUTHOR'S ORGANIZ ATION 08/02/2021 [facility] [facility] DATE CREATED AUTHOR AUTHOR'S ORGANIZ ATION 12/09/2021 [facility] DATE CREATED AUTHOR AUTHOR'S ORGANIZ ATION 12/29/2021 [employer] DATE CREATED AUTHOR AUTHOR'S ORGANIZ ATION 02/04/2022 [facility] DATE CREATED AUTHOR AUTHOR'S ORGANIZ ATION 03/03/2022 [facility] DATE CREATED AUTHOR AUTHOR'S ORGANIZ ATION 09/15/2023 [facility] DATE CREATED AUTHOR AUTHOR'S ORGANIZ ATION 11/13/2024 [facility] Reason for Visit (unrecogniz ed section and content) Reason Comments Missed Appointment Reason Comments Leg Swelling Blood clots Reason Comments Altered Mental Status Pt presents to ED via [facility] for complaint listed. Pt is from [facility]. Pt's LKW was 1000 hours today. Per EMS, pt had a - [place]. Pt denies CP, SOB, and N/V. Pt seems slow to respond, slightly confused at this time. Reason Comments Osteomyelitis Patient from [facility], facility did xrays on left lower leg and and have concerns for possible osteomyelitis A&Ox2 to self and place, stated year 2022 [facility] Reason Comments Fall Patient had unwitnes sed fall at [facility] landed on butt. Is on thinners, denies LOC, denies head injury has no complaints at this time Reason Comments New Patient Bilateral flank pain , hx of kidney stones Nephrolithiasis Reason Onset Date Comments Error (VOID this visit) 08/21/2023 Specialty Diagnoses / Procedures Referred By Contac t Referred To Contact Radiology Diagnoses Left flank pain Calculus of ureter Procedures CT abdomen pelvis wo IV contrast Rebecca Buck MD [address] [place] [address] Referral ID Status Reason Start Date Expiration Date Visits Re quested Visits Authorized [id number] Closed 08/17/2023 09/16/2023 1 1 Reason Comments [...] July 21, 2024 End: July 21, 2024 Karon NOVAK MD Attending [...] 01, 2024 End: May 01, 2024 Dr. vKng NOVAK MD Referring Provider Active Start: May [...] Status Dates Carlos NOVAK Attending Provider Active [employer] Relationship Specialty Start Date End Date Mateus Burris [address] [place] [address] PCP - General Family Practice 11/12/19 [employer] Relationship Specialty [place] [address] [place] [address] PCP - General Family Medicine 09/09/20 [employer] Relationship Specialty [place] [address] [place] [address] PCP - General Family Medicine 09/09/20 [employer]ice Relationship Specialty [place] [address] [place] [address] PCP - General Family Medicine 09/09/20 [employer] App[employer]ice Relationship Specialty Start Date End Date Carlos Cavazos MD [address] [facility] [address] [place] [address] PCP - General Internal Medicine 02/20/22 Team [...] Monika Staley MD Primary Care Provider Active [employer]ice Relationship Specialty Start Date End Date Carlos Cavazos [address] [place] [phone] PCP - General 12/21/21 Rebecca Buck MD [address] [address] Surgeon Urology 06/25/23 Team Status: Inactive Member [...] NOVAK Attending Provider, Referring Provi lupillo Active [employer]ice Relationship Specialty Start Date End Date Carlos Cavazos [address] [place] [phone] PCP - General 12/21/21 Rebecca Buck MD [address] [address] Surgeon Urology 06/25/23 [employer] App[employer]ice Relationship Specialty Start Date End Date Carlos Cavazos [address] [place] [phone] PCP - General 12/21/21 Rebecca Buck MD [address] [address] Surgeon Urology 06/25/23 [employer] Apprentice Relationship Specialty Start Date End Date Carlos Cavazos [address] [place] [phone] PCP - General 12/21/21 Rebecca Buck MD 201 [facility] [address] [place] [address] Surgeon Urology 06/25/23 [employer] Setter Apprentice Relationship Specialty Start Date End Date Kenny Carlos [address] [place] [phone] PCP - General 12/21/21 Rebecca Buck MD [address] [address] Surgeon Urology 06/25/23 [employer] Apprentice Relationship Specialty Start Date End Date Kenny Carlos [address] [place] [phone] PCP - General 12/21/21 Rebecca Buck MD 201 [facility] [address] [place] [address] Surgeon Urology 06/25/23 [employer] Setter Apprentice Relationship Specialty Start Date End Date Kenny Carlos [address] [place] [phone] PCP - General 12/21/21 Rebecca Buck MD 201 [facility] 3 [place] [address] Surgeon Urology 06/25/23 Team Status: Inactive Member Role Status Dates Dr. Monika Staley MD Primary Care Provider Active Start: March 13, 2024 End: March 13, 2024 [facility] Attending Provider Active Start: March 13, [...] March 17, 2024 End: March 17, 2024 [facility] Attending Provider Active Start: March 17, 2024 End: March 17, 2024 Team Status: Inactive Member Role Status Dates Dr. Monika Staley MD Primary Care Provider Active Start: March 18, 2024 End: March 18, 2024 [facility] Attending Provider Active Start: March 18, [...] March 20, 2024 End: March 20, 2024 [facility] Attending Provider Active Start: March 20, [...] March 27, 2024 End: March 27, 2024 [facility] Attending Provider Active Start: March 27, [...] Active Start: April 04, 2024 Dr. Kvng NOVAK MD Attending Provider Active Start: April 04, [...] Care Provider Active Start: July 07, 2024 [facility] Attending Provider Active Start: July 07, [...] September 15, 2024 End: September 15, 2024 Team Status: Inactive Member Role Status Dates Dr. Monika Staley MD Primary Care Provider Active Start: September 08, 2024 End: September 08, 2024 Karon NOVAK MD Attending Provider Active Start: September 08, 2024 End: September 08, 2024 Karon NOVAK MD Referring Provider Active Start: September 08, 2024 End: September 08, 2024 Team Status: Inactive Member Role Status Dates Dr. Monika Staley MD Primary Care Provider Active Start: September 30, 2024 End: September 30, 2024 Karon NOVAK MD Attending Provider Active Start: September 30, 2024 End: September 30, 2024 Karon NOVAK MD Referring Provider Active Start: September 30, 2024 End: September 30, 2024 Team Status: Active Member Role Status Dates Dr. Monika Staley MD Primary Care Provider Active Start: October 06, 2024 Carlos NOVAK Attending Provider Active Sta rt: October 06, 2024 Team Status: Active Member Role Status Dates Dr. Monika Staley MD Primary Care Provider Active Start: October 09, 2024 Karon NOVAK MD Attending Provider Active Start: October 09, 2024 Team Status: Active Member Role Status Dates Dr. Monika Staley MD Primary Care Provider Active Start: October 13, 2024 Carlos NOVAK Attending Provider Active Sta rt: October 13, 2024 Team Status: Active Member Role Status Dates Dr. Monika Staley MD Primary Care Provider Active Start: October 16, 2024 Karon NOVAK MD Attending Provider Active Start: October 16, 2024 Team Status: Active Member Role/Relationship Status Dates Dr. Monika Staley MD Primary Care Provider Active Team Status: Inactive Member Role/Relationship Status Dates Dr. Monika Staley MD Primary Care Provider Active Start: July 07, 2024 End: July 07, 2024 Karon NOVAK MD Attending Provider Active Start: July 07, 2024 End: July 07, 2024 Karon NOVAK MD Referring Provider Active Start: July 07, 2024 End: July 07, 2024 Team Status: Inactive Member Role/Relationship Status Dates Dr. Monika Staley MD Primary Care Provider Active Start: July 11, 2024 End: July 11, 2024 Carlos NOVAK Attending Provider Active Sta rt: July 11, 2024 End: July 11, 2024 Team Status: Inactive Member Role/Relationship Status Dates Dr. Monika Staley MD Primary Care Provider Active Start: July 14, 2024 End: July 14, 2024 Carlos NOVAK Attending Provider Active Sta rt: July 14, 2024 End: July 14, 2024 Team Status: Inactive Member Role/Relationship Status Dates Dr. Monika Staley MD Primary Care Provider Active Start: July 17, 2024 End: July 17, 2024 Karon NOVAK MD Attending Provider Active Start: July 17, 2024 End: July 17, 2024 Karon NOVAK MD Referring Provider Active Start: July 17, 2024 End: July 17, 2024 Team Status: Inactive Member Role/Relationship Status Dates Dr. Monika Staley MD Primary Care Provider Active Start: July 21, 2024 End: July 21, 2024 Karon NOVAK MD Attending Provider Active Start: July 21, 2024 End: July 21, 2024 Team Status: Inactive Member Role/Relationship Status Dates Dr. Monika Staley MD Primary Care Provider Active Start: July 24, 2024 End: July 24, 2024 Karon NOVAK MD Attending Provider Active Start: July 24, 2024 End: July 24, 2024 Karon NOVAK MD Referring Provider Active Start: July 24, 2024 End: July 24, 2024 Team Status: Inactive Member Role/Relationship Status Dates Dr. Monika Staley MD Primary Care Provider Active Start: July 25, 2024 End: July 25, 2024 Carlos NOVAK Attending Provider Active Sta rt: July 25, 2024 End: July 25, 2024 Team Status: Inactive Member Role/Relationship Status Dates Dr. Monika Staley MD Primary Care Provider Active Start: July 28, 2024 End: July 28, 2024 Karon NOVAK MD Attending Provider Active Start: July 28, 2024 End: July 28, 2024 Team Status: Inactive Member Role/Relationship Status Dates Dr. Monika Staley MD Primary Care Provider Active Start: July 31, 2024 End: July 31, 2024 Karon NOVAK MD Attending Provider Active Start: July 31, 2024 End: July 31, 2024 Karon NOVAK MD Referring Provider Active Start: July 31, 2024 End: July 31, 2024 Team Status: Inactive Member Role/Relationship Status Dates Dr. Monika Staley MD Primary Care Provider Active Start: August 04, 2024 End: August 04, 2024 Carlos NOVAK Attending Provider Active Sta rt: August 04, 2024 End: August 04, 2024 Team Status: Inactive Member Role/Relationship Status Dates Dr. Monika Staley MD Primary Care Provider Active Start: August 07, 2024 End: August 07, 2024 Carlos NOVAK Attending Provider Active Sta rt: August 07, 2024 End: August 07, 2024 Team Status: Inactive Member Role/Relationship Status Dates Dr. Monika Staley MD Primary Care Provider Active Start: August 11, 2024 End: August 11, 2024 Karon NOVAK MD Attending Provider Active Start: August 11, 2024 End: August 11, 2024 Team Status: Inactive Member Role/Relationship Status Dates Dr. Monika Staley MD Primary Care Provider Active Start: August 14, 2024 End: August 14, 2024 Karon NOVAK MD Attending Provider Active Start: August 14, 2024 End: August 14, 2024 Team Status: Inactive Member Role/Relationship Status Dates Dr. Monika Staley MD Primary Care Provider Active Start: August 18, 2024 End: August 18, 2024 Karon NOVAK MD Attending Provider Active Start: August 18, 2024 End: August 18, 2024 Team Status: Inactive Member Role/Relationship Status Dates Dr. Monika Staley MD Primary Care Provider Active Start: August 21, 2024 End: August 21, 2024 Karon NOVAK MD Attending Provider Active Start: August 21, 2024 End: August 21, 2024 Team Status: Inactive Member Role/Relationship Status Dates Dr. Monika Staley MD Primary Care Provider Active Start: August 25, 2024 End: August 25, 2024 Karon NOVAK MD Attending Provider Active Start: August 25, 2024 End: August 25, 2024 Karon NOVAK MD Referring Provider Active Start: August 25, 2024 End: August 25, 2024 Team Status: Inactive Member Role/Relationship Status Dates Dr. Monika Staley MD Primary Care Provider Active Start: August 28, 2024 End: August 28, 2024 Carlos NOVAK Attending Provider Active Sta rt: August 28, 2024 End: August 28, 2024 Team Status: Inactive Member Role/Relationship Status Dates Dr. Monika Staley MD Primary Care Provider Active Start: September 01, 2024 End: September 01, 2024 Carlos NOVAK Attending Provider Active Sta rt: September 01, 2024 End: September 01, 2024 Team Status: Inactive Member Role/Relationship Status Dates Dr. Monika Staley MD Primary Care Provider Active Start: September 04, 2024 End: September 04, 2024 Carlos NOVAK Attending Provider Active Sta rt: September 04, 2024 End: September 04, 2024 Team Status: Inactive Member Role/Relationship Status Dates Dr. Monika Staley MD Primary Care Provider Active Start: September 08, 2024 End: September 08, 2024 Karon NOVAK MD Attending Provider Active Start: September 08, 2024 End: September 08, 2024 Karon NOVAK MD Referring Provider Active Start: September 08, 2024 End: September 08, 2024 Team Status: Active Member Role/Relationship Status Dates Dr. Monika Staley MD Primary Care Provider Active Start: September 11, 2024 Karon NOVAK MD Attending Provider Active Start: September 11, 2024 Team Status: Inactive Member Role/Relationship Status Dates Dr. Monika Staley MD Primary Care Provider Active Start: September 15, 2024 End: September 15, 2024 Carlos NOVAK Attending Provider Active Sta rt: September 15, 2024 End: September 15, 2024 Team Status: Inactive Member Role/Relationship Status Dates Dr. Monika Staley MD Primary Care Provider Active Start: September 18, 2024 End: September 18, 2024 Karon NOVAK MD Attending Provider Active Start: September 18, 2024 End: September 18, 2024 Team Status: Active Member Role/Relationship Status Dates Dr. Monika Staley MD Primary Care Provider Active Start: September 22, 2024 Karon NOVAK MD Attending Provider Active Start: September 22, 2024 Team Status: Active Member Role/Relationship Status Dates Dr. Monika Staley MD Primary Care Provider Active Start: September 25, 2024 Karon NOVAK MD Attending Provider Active Start: September 25, 2024 Team Status: Inactive Member Role/Relationship Status Dates Dr. Monika Staley MD Primary Care Provider Active Start: September 30, 2024 End: September 30, 2024 Karon NOVAK MD Attending Provider Active Start: September 30, 2024 End: September 30, 2024 Karon NOVAK MD Referring Provider Active Start: September 30, 2024 End: September 30, 2024 Team Status: Active Member Role/Relationship Status Dates Dr. Monika Staley MD Primary Care Provider Active Start: October 02, 2024 Karon NOVAK MD Attending Provider Active Start: October 02, 2024 Team Status: Active Member Role/Relationship Status Dates Dr. Monika Staley MD Primary Care Provider Active Start: October 06, 2024 Carlos NOVAK Attending Provider Active Sta rt: October 06, 2024 Team Status: Active Member Role/Relationship Status Dates Dr. Monika Staley MD Primary Care Provider Active Start: October 09, 2024 Karon NOVAK MD Attending Provider Active Start: October 09, 2024 Team Status: Active Member Role/Relationship Status Dates Dr. Monika Staley MD Primary Care Provider Active Start: October 13, 2024 Carlos NOVAK Attending Provider Active Sta rt: October 13, 2024 Team Status: Active Member Role/Relationship Status Dates Dr. Monika Staley MD Primary Care Provider Active Start: October 16, 2024 Karon NOVAK MD Attending Provider Active Start: October 16, 2024 Team Status: Active Member Role/Relationship Status Dates Dr. Monika Staley MD Primary Care Provider Active Start: October 20, 2024 Karon NOVAK MD Attending Provider Active Start: October 20, 2024 Team Status: Active Member Role/Relationship Status Dates Dr. Monika Staley MD Primary Care Provider Active Start: October 23, 2024 Karon NOVAK MD Attending Provider Active Start: October 23, 2024 Team Status: Active Member Role/Relationship Status Dates Dr. Monika Staley MD Primary Care Provider Active Start: October 27, 2024 Karon NOVAK MD Attending Provider Active Start: October 27, 2024 Team Status: Active Member Role/Relationship Status Dates Dr. Monika Staley MD Primary Care Provider Active Start: October 30, 2024 Karon NOVAK MD Attending Provider Active Start: October 30, 2024 Team Status: Inactive Member Role/Relationship Status Dates Dr. Monika Staley MD Primary Care Provider Active Start: September 22, 2024 End: September 22, 2024 Karon NOVAK MD Attending Provider Active Start: September 22, 2024 End: September 22, 2024 Ordered Prescriptions (unrec ognized section and [...] dose on Sun10/21/21 at 0900, Until Discontinued 09 (Given - Provider: Rosanne Hoff RN)1437 (Given - Provider: Rosanne Hoff RN)2036 (Given - Provider: Katlin Julio RN) 0816 (Given - Provider: Rosanne Hoff RN)1355 (Given - Provider: Rosanne Hoff, AYUSH)1926 (Given - Provider: Lisa Ashby RN) 1024 (Given - Provider: Fabi Subramanian RN)1547 (Given - Provider: Cliff Isidro RN)2100 (Due) bumetanide (BUMEX) tablet 2 mg 2 mg, Oral, DAILY, First dose on Sun10/21/21 at 0900, Until Discontinued 0911 (Given - Provider: Rosanne Hoff RN) 0816 (Given - Provider: Rosanne Hoff RN) 1025 (Given - Provider: Fabi Subramanian, RN) enoxaparin (LOVENOX) injection 105 mg (CANCELED) 105 mg (rounded from 108.9 mg = 1 mg/kg 108.9 kg), SubCUTAneous, 2 TIMES DAILY, First dose on Sun10/21/21 at 0900, Until Discontinued, Indication of Use: Prophylaxis-DVT/PE 910 (Given - Provider: Rosanne Hoff RN)2035 (Given - Provider: Katlin Julio RN) 0816 (Given - Provider: Rosanne Hoff RN) levETIRAcetam (KEPPRA) 750 mg in sodium chloride 0.9 % 100 mL IVPB 750 mg, IntraVENous, 2 times daily, First dose on Sun10/26/21 at 2000, Until Discontinued 911 (New Bag - Provider: Rosanne Hoff RN)102 (Stopped - Provider: Rosanne Hoff RN)2034 (New Bag - Provider: Katlin Julio RN)2103 (Stopped - Provider: Katlin Julio RN) 0816 (New Bag - Provider: Rosanne Hoff RN)0953 (Stopped - Provider: Rosanne Hoff RN)2055 (New Bag - Provider: Lisa Ashby, AYUSH)214 (Stopped - Provider: Lisa Ahsby RN) 1026 (New Bag - Provider: Fabi Subramanian RN)1150 (Stopped - Provider: Fabi Subramanian RN)2100 (Due) potassium chloride (KLOR-CON M) extended release tablet 20 mEq 20 mEq, Oral, DAILY, First dose on Sun10/21/21 at 0900, Until Discontinued, Do not crush, chew, or suck on tablet. Tablet may also be broken in half and each half swallowed separately. 09 (Given - Provider: Rosanne Hoff RN) 08 (Given - Provider: Rosanne Hoff RN) 1025 (Given - Provider: Fabi Subramanian RN) sodium [...] Rosanne Hoff RN)1927 (Given - Provider: Lisa Ashby, AYUSH) 1027 (Given - Provider: Fabi Subramanian, AYUSH)2100 (Due) warfarin (COUMADIN) tablet 7.5 mg (COMPLETED) [...] mg, Oral, ONCE Warfarin, 1 dose, On 10/29/21 at 1800, Indication of Use: Treatment-DVT/PE, [...] IntraVENous, EVERY 8 HOURS, First dose on Sun12/22/21 at 0000, Until Discontinued
Flush line with [...] BE BASED ON THE PRIMARY CLINICAL RECORDS. [facility] [employer]. provides no warranty or guarantee of the accuracy or completeness of information in this document.
[2024-11-17 09:36] LABS: Prothrombin Time (Protime)PT. 30.7 SECONDS (11.7-14.9)
== END ==
LOC: OLS.SANC 05:00
PROVIDERS: PCP General Practice
DX: Z79.01 Long term (current) use of 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 (principal)
CPT/HCPCS: 36415; 85610

== ENCOUNTER → 2024-11-20 | Outpatient (REF) | payer MEDICARE, MEDICAID, SELFPAY ==
[2024-11-20 09:18] LABS: Prothrombin Time (Protime)PT. 32.0 SECONDS (11.7-14.9)
== END ==
LOC: OLS.SANC 05:00
PROVIDERS: PCP General Practice
DX: Z79.01 Long term (current) use of 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 (principal)
CPT/HCPCS: 36415; 85610

== ENCOUNTER → 2024-11-24 05:00 | Outpatient (REF) | payer MEDICARE, MEDICAID, SELFPAY ==
--- OUTSIDE RECORDS SUMMARY | 2024-11-24 03:57 | XMS RPT_ITS | CCD ---
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 Monika Horner Primary Care Provider [facility] Attending Provider [phone] Carlos Nelson Attending Provider Jonh Pascual MD, [...] MD, Dr. Calderon Referring Provider Unava ilable Carlos Nelson Attending Provider Unavailab Nani VALLADARES, Dr. Monika Horner Primary Care Provider Andressa VALLADARES, Dr. Calderon Attending Provider Jany Staley MD, Dr. Monika Horner Primary Care Provider Andressa VALLADARES, Dr. Calderon Attending Provider Jany Staley MD, Dr. Monika Horner Primary Care Provider Andressa VALLADARES, Dr. Calderon Attending Provider Jeanineva ilable Carlos Nelson Attending Provider Unavailab ish Staley MD, Dr. Monika Horner Primary Care Provider Andressa VALLADARES, Dr. Calderon Attending Provider Jeanineva ilCarlos Anglin Attending Provider Unavailab ish Staley MD, Dr. Monika Horner Primary Care Provider Andressa VALLADARES, Dr. Calderon Attending Provider Jany Staley MD, Dr. Monika Horner Primary Care Provider Carlos Nelson Attending Provider Unavailab le KatCarlos Flood Attending Unavailable Luís, Shiela Primary [...] Unavail able Luís, Shiela Primary Care Unavailable Crisostomo Kvng NOVAK Referring Unavailable CrisostomoKvng Levy Attending Unavailable Luís, Shiela Primary Care Unavailable Katsaros OLS, Peter Attending Unavailable Luís, Shiela Primary Care [facility]available [facility] [place] Attending Unavai lable Luís, Shiela Primary Care [...] Luís, Shiela Primary Care Unavailable [facility] [place] Attending Unavai lable Luís, Shiela Primary Care Unavailable Crisostomo OLS, Kvng Referring Unavailable Crisostomo OLS, Kvng Attending Unavailable Luís, [...] Unavailable Mukkamalla OLS, Karon Attending Unavail able Ulís, Shiela Primary Care Unavailable Mukkamalla OLS, Karon Referring Unavail able Mukkamalla OLS, Karon Attending Unavail able Luís, Shiela Primary Care Unavailable Katsaros OLS, Peter Attending Unavailable Lusí, Shiela Primary Care Unavailable Katsaros OLS, Peter Attending Unavailable Luís, Shiela Primary Care Unavailable Katsaros OLS, Peter Attending Unavailable Luís, Shiela Primary Care Unavailable Mukkamalla OLS, Melindaer Referring Unavail able Mukkamalla OLS, Carlaaveer Attending [...] able Mukkamalla OLS, Mahaveer Referring Unavail able Luís, [...] Luís, Shiela Primary Care Unavailable [facility] [place] Attending Unavai lable Luís, Shiela Primary Care Unavailable Luís, Shiela Primary Care Unavailable [facility] [place] Attending Unavai lable Katsaros OLS, Carlos Attending Unavailable Luís, Shiela Primary Care Unavailable [facility] [place] Attending Unavai lable Luís, Shiela Primary Care Unavailable Crisostomo OLSKvng Attending Unavailable Luís, Shiela Primary Care Unavailable Katsaros OLS, Peter Attending Unavailable Luís, Shiela Primary Care Unavailable [facility] [place] Attending Unavai lable Luís, Shiela Primary Care Unavailable [facility] [place] Attending Unavai lable Luís, Shiela Primary Care Unavailable [facility] [place] Attending Unavai lable Luís, Shiela Primary Care Unavailable [facility] [place] Attending Unavai lable Luís, Shiela Primary Care Unavailable [facility] [place] Attending Unavai lable Luís, Shiela Primary Care Unavailable Katsaros OLS Peter Attending Unavailable Luís, Shiela Primary Care Unavailable [facility] [place] Attending Unavai lable Luís, Shiela Primary Care Unavailable [facility] [place] Attending Unavai lable Luís, Shiela Primary Care Unavailable [facility] [place] Attending Unavai lable Luís, Shiela Primary Care Unavailable [facility] [place] Attending Unavai lable Luís, Shiela Primary Care Unavailable Katsaros Carlos NOVAK Attending Unavailable Luís, Shiela Primary Care Unavailable Katsaros SCARLET Peter Attending Unavailable Luís, Shiela Primary Care Unavailable Crisostomo OLS Babbaljeet Attending Unavailable Luís, Shiela Primary Care Unavailable Crisostomo OLS, Babbaljeet Attending Unavailable Luís, Shiela Primary Care Unavailable Katsaros Carlos NOVAK Attending Unavailable Luís, Shiela Primary Care Unavailable Crisostomo OLS, Babbaljeet Referring Unavailable Crisostomo OLS, Babbaljeet Attending Unavailable Luís, Shiela Primary Care Unavailable Katsaros SCARLET Peter Attending Unavailable Luís, Shiela Primary Care Unavailable Crisostomo OLS, Babbaljeet Referring Unavailable Crisostomo OLS, Babbaljeet Attending Unavailable Luís, Shiela Primary Care Unavailable Crisostomo OLS, Babbaljeet Attending Unavailable Luís, Shiela Primary Care Unavailable Crisostomo OLS, Babbaljeet Attending Unavailable Luís, Shiela Primary Care Unavailable Katsaros SCARLET Peter Attending Unavailable Luís, Shiela Primary Care Unavailable Katsaros SCARLET Peter Attending Unavailable Luís, Shiela Primary Care Unavailable [facility] [place] Attending Unavai lable Luís, Shiela Primary Care Unavailable Crisostomo OLS, Babbaljeet Attending Unavailable Crisostomo OLS, Babbaljeet Referring Unavailable [...] Luís, Shiela Primary Care Unavailable [facility] [place] Attending Tricia bustamantele Luís, Shiela Primary Care [...] Shiela Primary Care Unavailable Mukkamalla OLS, Melindaer Referring Unavail able Mukkamalla OLS, Mahaveer Attending Unavail able Luís, Shiela Primary Care Unavailable Crisostomo OLS, Kvng Attending Unavailable Luís, Shiela Primary Care Unavailable Katsaros OLS, Carlos Attending Unavailable Luís, Shiela Primary Care Unavailable Mukkamalla OLS, Melindaer Referring Unavail able Mukkamalla OLS, Carlaaveer Attending [...] Attending Unavailable Luís, Shiela Primary Care Unavailable Allergies Allergy Classification Reported Allergen(s) Allergy Type Date of Onset Reaction(s) Facility (13 sources) Morphine Drug Allergy 5 [facility] Work Phone: (15 sources) Alcohol Propensity to adverse reactions to drug 3 Rash, Hives, Other: See Comments, Other [facility] Work Phone: (1 source) Latex Drug Allergy 0 Rash [facility] (8 sources) Cortisone Drug Allergy 2 [facility] (7 sources) Latex Allergy to substance 0 Rash [facility] Medications Current Medications Medication Drug Class(es) Dates Sig (Normalized) Sig (Original) Acetaminophen (10 sources) Start: 10-21-2021 acetaminophen (TYLENOL) tablet 650 mg Start: 09-14-2021 acetaminophen (TYLENOL) 325 MG tablet 650 mg every 6 hours as needed 0 09/14/2021 Active take 2 tablets by [facility] every eight hours acetaminophen (TYLENOL) 325 mg [...] Start: 11-01-2021 take 1 capsule by mo uth once daily tamsulosin (FLOMAX) 0.4 MG capsule [...] on above: Take 1 capsule by mo ut three times daily. Complete Multi-Vitamin CHEW (4 [...] Active docusate sodium 50 mg / sennosides, correction 8.6 mg oral tablet (1 source) Start: [...] Units subcutaneously with meals and at bedtime. Bengali Panax Ginseng 100 MG CAPS (8 sources) Bengali Panax Ginseng 100 MG CAPS Quantity: 0 Refills: 0 Ordered: 06-Nov-2019 DO Active Bengali Panax Ginseng 100 MG Oral Capsule (4 sources) Bengali Panax Ginseng 100 MG Oral Capsule Refills: 0 Active Bengali Panax Gin mayuri 100 MG Oral Capsule Refills: 0 DO Active Bengali Panax Ginseng 100 MG Oral Capsule (2 sources) Bengali Panax Gin mayuri 100 MG Oral Capsule [...] tablet (1 source) Antiemetic Star t: 09-23 13 take 1 tablet by mouth three times [...] once daily. 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 0 Active Comment on above: Take by mouth. petrolatum 0.41 mg/mg topical ointment (1 source) Start : 08-20 white petrolatum (AQUAPHOR) 41 % topical ointment Apply to affected area once daily. 0 08/20/2021 Active Comment on above: Apply to affected ar ea once daily. 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] Episodic Other circulatory [...] Onset: 10-31-2021 Episodic Fluid and electrolyte disorders (4 sources) Hypernatremia; Translations: [Hyperosmolality and hypernatremia] Onset: 06-14-2021 06-17-2021 Episodic Malaise and fatigue (5 sources) Fatigue; Translations: [Other fatigue] Onset: 03-10-2015 03-10-2015 Episodic Mycoses (2 sources) Tinea unguium; Translations: [Tinea unguium] Onset: 10-21-2021 Episodic Open wounds of extremities (7 sources) Injury of left leg; Translations: [Unspecified open wound, left lower leg, initial encounter] Onset: 05-19-2019 02-16-2022 Episodic Other aftercare (2 sources) 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, [address] PT Coag (PPP) [Time] 32.0 s High 11.7-14.9 [facility] Comment on above: Order Comment: 411.2 Performed By: #### L 300.3900 ####[facility] [address] [place], [address] Prothrombin Time w/INRon INR Coag (PPP) [Relative time] 2.9 {INR} Normal [facility] Comment on above: Order Comment: 411.2 Performed By: #### L 300.3900 ####[facility] [address] [place], [address] PT Coag (PPP) [Time] 30.7 s High 11.7-14.9 [facility] Comment on above: Order Comment: 411.2 Performed By: #### L 300.3900 ####[facility] [address] [place], [address] Prothrombin Time w/INRon INR Coag (PPP) [Relative time] 2.2 {INR} Normal [facility] Comment on above: Order Comment: 411.2 Performed By: #### L 300.3900 ####[facility] [address] [place], [address] PT Coag (PPP) [Time] 24.7 s High 11.7-14.9 [facility] Comment on above: Order Comment: 411.2 Performed By: #### L 300.3900 ####[facility] [address] [place], [address] Prothrombin Time w/INRon INR Coag (PPP) [Relative time] 2.6 {INR} Normal [facility] Comment on above: Order Comment: 411.2 Performed By: #### L 300.3900 ####[facility] [address] [place], [address] PT Coag (PPP) [Time] 28.7 s High 11.7-14.9 [facility] Comment on above: Order Comment: 411.2 Performed By: #### L 300.3900 ####[facility] [address] [place], [address] Prothrombin Time w/INRon INR Coag (PPP) [Relative time] 3.1 {INR} Normal [facility] Comment on above: Order Comment: 411.2 Performed By: #### L 300.3900 ####[facility] [address] [place], [address] PT Coag (PPP) [Time] 33.0 s High 11.7-14.9 [facility] Comment on above: Order Comment: 411.2 Performed By: #### L 300.3900 ####[facility] [address] [place], [address] Prothrombin Time w/INRon INR Coag (PPP) [Relative time] 3.0 {INR} Normal [facility] Comment on above: Order Comment: 411-2 Performed By: #### L 300.3900 ####[facility] [address] [place], [address] PT Coag (PPP) [Time] 31.4 s High 11.7-14.9 [facility] Comment on above: Order Comment: 411-2 Performed By: #### L 300.3900 ####[facility] [address] [place], [address] International normalized rat io (INR) calculationOrdered By: Karon Corrales on 10-30-2024 INR Coag (Bld) [Relative time] 2.4 {INR} [facility] Prothrombin Time w/INRon INR Coag (PPP) [Relative time] 2.4 {INR} Normal [facility] Comment on above: Performed By: #### L 300.3900 ####[facility] [address] [place], [address] PT Coag (PPP) [Time] 26.3 s High 11.7-14.9 [facility] Comment on above: Performed By: #### L 300.3900 ####[facility] [address] [place], [address] Prothrombin timeOrdered By: Karon Corrales on 10-30-2024 PT Coag (PPP) [Time] 26.3 s High 11.7-14.9 [facility] International normalized rat io (INR) calculationOrdered By: Karon Corrales on 10-27-2024 INR Coag (Bld) [Relative time] 2.2 {INR} [facility] Prothrombin Time w/INRon INR Coag (PPP) [Relative time] 2.2 {INR} Normal [facility] Comment on above: Order Comment: 411.2 Performed By: #### L 300.3900 ####[facility] [address] [place], [place], [address] Prothrombin timeOrdered By: Karon Corrales on 10-27-2024 PT Coag (PPP) [Time] 24.5 s High 11.7-14.9 [facility] Comment on above: Order Comment: 411.2 Performed By: #### L 300.3900 ####[facility] [address] [place], [address] International normalized rat io (INR) calculationOrdered By: Karon Corrales on 10-23-2024 INR Coag (Bld) [Relative time] 2.5 {INR} [facility] Prothrombin Time w/INRon INR Coag (PPP) [Relative time] 2.5 {INR} Normal [facility] Comment on above: Order Comment: 411.2 Performed By: #### L 300.3900 ####[facility] [address] [place], [address] PT Coag (PPP) [Time] 27.9 s High 11.7-14.9 [facility] Comment on above: Order Comment: 411.2 Performed By: #### L 300.3900 ####[facility] [address] [place], [place], [address] Prothrombin timeOrdered By: Karon Corrales on 10-23-2024 PT Coag (PPP) [Time] 27.9 s High 11.7-14.9 [facility] International normalized rat io (INR) calculationOrdered By: Karon Corrales on 10-20-2024 INR Coag (Bld) [Relative time] 3.1 {INR} [facility] Prothrombin Time w/INRon INR Coag (PPP) [Relative time] 3.1 {INR} Normal [facility] Comment on above: Order Comment: 411.2 Performed By: #### L 300.3900 ####[facility] [address] [place], [place], [phone]) PT Coag (PPP) [Time] 32.8 s High 11.7-14.9 [facility] Comment on above: Order Comment: 411.2 Performed By: #### L 300.3900 ####[facility] [address] [place], [place], [phone]) Prothrombin timeOrdered By: Karon Corrales on 10-20-2024 PT Coag (PPP) [Time] 32.8 s High 11.7-14.9 [facility] International normalized rat io (INR) calculationOrdered By: Karon Corrales on 10-16-2024 INR Coag (Bld) [Relative time] 2.8 {INR} [facility] Prothrombin Time w/INRon INR Coag (PPP) [Relative time] 2.8 {INR} Normal [facility] Comment on above: Order Comment: 411.2 Performed By: #### L 300.3900 ####[facility] [address] [place], [place], [phone] PT Coag (PPP) [Time] 30.4 s High 11.7-14.9 [facility] Comment on above: Order Comment: 411.2 Performed By: #### L 300.3900 ####[facility] [address] [place], [place], [phone] Prothrombin timeOrdered By: Karon Corrales on 10-16-2024 PT Coag (PPP) [Time] 30.4 s High 11.7-14.9 [facility] International normalized rat io (INR) calculationOrdered By: Carlos Cavazos on 10-13-2024 INR Coag (Bld) [Relative time] 1.9 {INR} [facility] Prothrombin Time w/INRon INR Coag (PPP) [Relative time] 1.9 {INR} Normal [facility] Comment on above: Order Comment: 411-2 Performed By: #### L 300.3900 ####[facility] [address] [place], [place], [phone] PT Coag (PPP) [Time] 22.4 s High 11.7-14.9 [facility] Comment on above: Order Comment: 411-2 Performed By: #### L 300.3900 ####[facility] [address] [place], [place], [phone] Prothrombin timeOrdered By: Carlos Cavazos on 10-13-2024 PT Coag (PPP) [Time] 22.4 s High 11.7-14.9 [facility] International normalized rat io (INR) calculationOrdered By: Karon Corrales on 10-09-2024 INR Coag (Bld) [Relative time] 3.0 {INR} [facility] Prothrombin Time w/INRon INR Coag (PPP) [Relative time] 3.0 {INR} Normal [facility] Comment on above: Order Comment: 411.2 Performed By: #### L 300.3900 ####[facility] [address] [place], [place], [phone] Prothrombin timeOrdered By: Karon Corrales on 10-09-2024 PT Coag (PPP) [Time] 31.8 s High 11.7-14.9 [facility] Comment on above: Order Comment: 411.2 Performed By: #### L 300.3900 ####[facility] [address] [place], [address] International normalized rat io (INR) calculationOrdered By: Carlos Cavazos on 10-06-2024 INR Coag (Bld) [Relative time] 2.7 {INR} [facility] Prothrombin Time w/INRon INR Coag (PPP) [Relative time] 2.7 {INR} Normal [facility] Comment on above: Order Comment: 411-2 Performed By: #### L 300.3900 ####[facility] [address] [place], [address] PT Coag (PPP) [Time] 29.6 s High 11.7-14.9 [facility] Comment on above: Order Comment: 411-2 Performed By: #### L 300.3900 ####[facility] [address] [place], [address] Prothrombin timeOrdered By: Carlos Cavazos on 10-06-2024 PT Coag (PPP) [Time] 29.6 s High 11.7-14.9 [facility] International normalized rat io (INR) calculationOrdered By: Karon Corrales on 10-02-2024 INR Coag (Bld) [Relative time] 2.3 {INR} [facility] Prothrombin Time w/INRon INR Coag (PPP) [Relative time] 2.3 {INR} Normal [facility] Comment on above: Order Comment: 411.2 Performed By: #### L 300.3900 ####[facility] [address] [place], [address] PT Coag (PPP) [Time] 26.0 s High 11.7-14.9 [facility] Comment on above: Order Comment: 411.2 Performed By: #### L 300.3900 ####[facility] [address] [place], [address] Prothrombin timeOrdered By: Karon Corrales on 10-02-2024 PT Coag (PPP) [Time] 26.0 s High 11.7-14.9 [facility] International normalized rat io (INR) calculationOrdered By: Karon Corrales on 09-30-2024 INR Coag (Bld) [Relative time] 3.1 {INR} [facility] Prothrombin Time w/INRon INR Coag (PPP) [Relative time] 3.1 {INR} Normal [facility] Comment on above: Order Comment: 411.2 Performed By: #### L 300.3900 ####[facility] [address] [place], [place], [phone] PT Coag (PPP) [Time] 32.6 s High 11.7-14.9 [facility] Comment on above: Order Comment: 411.2 Performed By: #### L 300.3900 ####[facility] [address] [place], [place], [phone] Prothrombin timeOrdered By: Karon Corrales on 09-30-2024 PT Coag (PPP) [Time] 32.6 s High 11.7-14.9 [facility] International normalized rat io (INR) calculationOrdered By: Karon Corrales on 09-25-2024 INR Coag (Bld) [Relative time] 2.4 {INR} [facility] Prothrombin Time w/INRon INR Coag (PPP) [Relative time] 2.4 {INR} Normal [facility] Comment on above: Order Comment: 411.2 Performed By: #### L 300.3900 ####[facility] [address] [place], [place], [phone] Prothrombin timeOrdered By: Karon Corrales on 09-25-2024 PT Coag (PPP) [Time] 26.7 s High 11.7-14.9 [facility] Comment on above: Order Comment: 411.2 Performed By: #### L 300.3900 ####[facility] [address] [place], [address] International normalized rat io (INR) calculationOrdered By: Karon Corrales on 09-22-2024 INR Coag (Bld) [Relative time] 2.5 {INR} [facility] Prothrombin Time w/INRon INR Coag (PPP) [Relative time] 2.5 {INR} Normal [facility] Comment on above: Order Comment: 411.2 Performed By: #### L 300.3900 ####[facility] [address] [place], [place], [address] Prothrombin timeOrdered By: Karon Corrales on 09-22-2024 PT Coag (PPP) [Time] 27.4 s High 11.7-14.9 [facility] Comment on above: Order Comment: 411.2 Performed By: #### L 300.3900 ####[facility] [address] [place], [place], [address] International normalized rat io (INR) calculationOrdered By: Karon Corrales on 09-18-2024 INR Coag (Bld) [Relative time] 2.2 {INR} [facility] Prothrombin Time w/INRon INR Coag (PPP) [Relative time] 2.2 {INR} Normal [facility] Comment on above: Order Comment: 411.2 Performed By: #### L 300.3900 ####[facility] [address] [place], [place], [address] PT Coag (PPP) [Time] 25.1 s High 11.7-14.9 [facility] Comment on above: Order Comment: 411.2 Performed By: #### L 300.3900 ####[facility] [address] [place], [place], [address] Prothrombin timeOrdered By: Karon Corrales on 09-18-2024 PT Coag (PPP) [Time] 25.1 s High 11.7-14.9 [facility] International normalized rat io (INR) calculationOrdered By: Carlos Cavazos on 09-15-2024 INR Coag (Bld) [Relative time] 2.4 {INR} [facility] Prothrombin Time w/INRon INR Coag (PPP) [Relative time] 2.4 {INR} Normal [facility] Comment on above: Order Comment: 411-2 Performed By: #### L 300.3900 ####[facility] [address] [place], [place], [phone] Prothrombin timeOrdered By: Carlos Cavazos on 09-15-2024 PT Coag (PPP) [Time] 26.3 s High 11.7-14.9 [facility] Comment on above: Order Comment: 411-2 Performed By: #### L 300.3900 ####[facility] [address] [place], [place], [phone] International normalized rat io (INR) calculationOrdered By: Karon Corrales on 09-11-2024 INR Coag (Bld) [Relative time] 2.0 {INR} [facility] Prothrombin Time w/INRon INR Coag (PPP) [Relative time] 2.0 {INR} Normal [facility] Comment on above: Order Comment: 411.2 Performed By: #### L 300.3900 ####[facility] [address] [place], [place], [id number] PT Coag (PPP) [Time] 22.9 s High 11.7-14.9 [facility] Comment on above: Order Comment: 411.2 Performed By: #### L 300.3900 ####[facility] [address] [place], [place], [phone] Prothrombin timeOrdered By: Karon Corrales on 09-11-2024 PT Coag (PPP) [Time] 22.9 s High 11.7-14.9 [facility] International normalized rat io (INR) calculationOrdered By: Karon Corrales on 09-08-2024 INR Coag (Bld) [Relative time] 2.0 {INR} [facility] Prothrombin Time w/INRon INR Coag (PPP) [Relative time] 2.0 {INR} Normal [facility] Comment on above: Order Comment: 411.2 Performed By: #### L 300.3900 ####[facility] [address] [place], [place], [phone]) PT Coag (PPP) [Time] 22.8 s High 11.7-14.9 [facility] Comment on above: Order Comment: 411.2 Performed By: #### L 300.3900 ####[facility] [address] [address] [place], [place], [phone] Prothrombin timeOrdered By: Karon Corrales on 09-08-2024 PT Coag (PPP) [Time] 22.8 s High 11.7-14.9 [facility] normalized rat io (INR) calculationOrdered By: Carlos Cavazos on 09-04-2024 INR Coag (Bld) [Relative time] 1.7 {INR} [facility] Prothrombin Time w/INRon INR Coag (PPP) [Relative time] 1.7 {INR} Normal [facility] Comment on above: Order Comment: 411-2 Performed By: #### L 300.3900 ####[facility] [address] [place], [place], [phone]) PT Coag (PPP) [Time] 20.8 s High 11.7-14.9 [facility] Comment on above: Order Comment: 411-2 Performed By: #### L 300.3900 ####[facility] [address] [place], [place], [phone]) Prothrombin timeOrdered By: Carlos Cavazos on 09-04-2024 PT Coag (PPP) [Time] 20.8 s High 11.7-14.9 [facility] normalized rat io (INR) calculationOrdered By: Carlos Cavazos on 09-01-2024 INR Coag (Bld) [Relative time] 2.9 {INR} [facility] Prothrombin Time w/INRon INR Coag (PPP) [Relative time] 2.9 {INR} Normal [facility] Comment on above: Order Comment: 411-2 Performed By: #### L 300.3900 ####[facility] [address] [place], [address] PT Coag (PPP) [Time] 30.7 s High 11.7-14.9 [facility] Comment on above: Order Comment: 411-2 Performed By: #### L 300.3900 ####[facility] [address] [place], [place], [phone] Prothrombin timeOrdered By: Carlos Cvaazos on 09-01-2024 PT Coag (PPP) [Time] 30.7 s High 11.7-14.9 [facility] normalized rat io (INR) calculationOrdered By: Carlos Cavazos on 08-28-2024 INR Coag (Bld) [Relative time] 2.4 {INR} [facility] Prothrombin Time w/INRon INR Coag (PPP) [Relative time] 2.4 {INR} Normal [facility] Comment on above: Order Comment: 411-2 Performed By: #### L 300.3900 ####[facility] [address] [place], [address] Prothrombin timeOrdered By: Carlos Cavazos on 08-28-2024 PT Coag (PPP) [Time] 26.7 s High 11.7-14.9 [facility] Comment on above: Order Comment: 411-2 Performed By: #### L 300.3900 ####[facility] [address] [place], [address] International normalized rat io (INR) calculationOrdered By: Karon Corrales on 08-25-2024 INR Coag (Bld) [Relative time] 1.8 {INR} [facility] Prothrombin Time w/INRon INR Coag (PPP) [Relative time] 1.8 {INR} Normal [facility] Comment on above: Order Comment: 411.2 Performed By: #### L 300.3900 ####[facility] [address] [place], [address] PT Coag (PPP) [Time] 21.6 s High 11.7-14.9 [facility] Comment on above: Order Comment: 411.2 Performed By: #### L 300.3900 ####[facility] [address] [place], [address] Prothrombin timeOrdered By: Karon Corrales on 08-25-2024 PT Coag (PPP) [Time] 21.6 s High 11.7-14.9 [facility] normalized rat io (INR) calculationOrdered By: Karon Corrales on 08-21-2024 INR Coag (Bld) [Relative time] 1.7 {INR} [facility] PSA, total screeningOrdered By: Karon Corrales on 08-21-2024 Prostate Specific Antigen Screen 0.52 ng/mL 0.02-4.00 [facility] Comment on above: This test [...] 08-21-2024 PSA,TOT SCREEN 0.52 ng/mL Normal 0.02-4.00 [facility] Comment on above: Order Comment: [...] values. Performed By: #### L 501.9910, L300.3900 ####[facility] [address] [place], [address] Prothrombin Time w/INRon INR Coag (PPP) [Relative time] 1.7 {INR} Normal [facility] Comment on above: Order Comment: 411.2 Performed By: #### L 501.9910, L300.3900 ####[facility] [address] [place], [address] Prothrombin timeOrdered By: Karon Corrales on 08-21-2024 PT Coag (PPP) [Time] 20.1 s High 11.7-14.9 [facility] Comment on above: Order Comment: 411.2 Performed By: #### L 501.9910, L300.3900 ####[facility] [address] [place], [address] International normalized rat io (INR) calculationOrdered By: Karon Corrales on 08-18-2024 INR Coag (Bld) [Relative time] 3.0 {INR} [facility] Prothrombin Time w/INRon INR Coag (PPP) [Relative time] 3.0 {INR} Normal [facility] Comment on above: Order Comment: 411.2 Performed By: #### L 300.3900 ####[facility] [address] [place], [address] PT Coag (PPP) [Time] 31.4 s High 11.7-14.9 [facility] Comment on above: Order Comment: 411.2 Performed By: #### L 300.3900 ####[facility] [address] [place], [address] Prothrombin timeOrdered By: Karon Corrales on 08-18-2024 PT Coag (PPP) [Time] 31.4 s High 11.7-14.9 [facility] normalized rat io (INR) calculationOrdered By: Karon Corrales on 08-14-2024 INR Coag (Bld) [Relative time] 2.4 {INR} [facility] Prothrombin Time w/INRon INR Coag (PPP) [Relative time] 2.4 {INR} Normal [facility] Comment on above: Order Comment: 411.2 Performed By: #### L 300.3900 ####[facility] [address] [place], [place], [phone] PT Coag (PPP) [Time] 26.6 s High 11.7-14.9 [facility] Comment on above: Order Comment: 411.2 Performed By: #### L 300.3900 ####[facility] [address] [place], [place], [phone] Prothrombin timeOrdered By: Karon Corrales on 08-14-2024 PT Coag (PPP) [Time] 26.6 s High 11.7-14.9 [facility] normalized rat io (INR) calculationOrdered By: Karon Corrales on 08-11-2024 INR Coag (Bld) [Relative time] 3.1 {INR} [facility] Prothrombin Time w/INRon INR Coag (PPP) [Relative time] 3.1 {INR} Normal [facility] Comment on above: Order Comment: 411.2 Performed By: #### L 300.3900 ####[facility] [address] [place], [place], [phone] PT Coag (PPP) [Time] 32.4 s High 11.7-14.9 [facility] Comment on above: Order Comment: 411.2 Performed By: #### L 300.3900 ####[facility] [address] [place], [place], [phone] Prothrombin timeOrdered By: Karon Corrales on 08-11-2024 PT Coag (PPP) [Time] 32.4 s High 11.7-14.9 [facility] normalized rat io (INR) calculationOrdered By: Carlos Cavazos on 08-07-2024 INR Coag (Bld) [Relative time] 2.8 {INR} [facility] Prothrombin Time w/INRon INR Coag (PPP) [Relative time] 2.8 {INR} Normal [facility] Comment on above: Order Comment: 411-2 Performed By: #### L 300.3900 ####[facility] [address] [place], [address] PT Coag (PPP) [Time] 30.3 s High 11.7-14.9 [facility] Comment on above: Order Comment: 411-2 Performed By: #### L 300.3900 ####[facility] [address] [place], [address] Prothrombin timeOrdered By: Carlos Cavazos on 08-07-2024 PT Coag (PPP) [Time] 30.3 s High 11.7-14.9 [facility] normalized rat io (INR) calculationOrdered By: Carlos Cavazos on 08-04-2024 INR Coag (Bld) [Relative time] 1.9 {INR} [facility] Prothrombin Time w/INRon INR Coag (PPP) [Relative time] 1.9 {INR} Normal [facility] Comment on above: Order Comment: 411-2 Performed By: #### L 300.3900 ####[facility] [address] [place], [address] PT Coag (PPP) [Time] 22.1 s High 11.7-14.9 [facility] Comment on above: Order Comment: 411-2 Performed By: #### L 300.3900 ####[facility] [address] [place], [address] Prothrombin timeOrdered By: Carlos Cavazos on 08-04-2024 PT Coag (PPP) [Time] 22.1 s High 11.7-14.9 [facility] normalized rat io (INR) calculationOrdered By: Karon Corrales on 07-31-2024 INR Coag (Bld) [Relative time] 3.2 {INR} [facility] Prothrombin Time w/INRon INR Coag (PPP) [Relative time] 3.2 {INR} Normal [facility] Comment on above: Order Comment: 411.2 Performed By: #### L 300.3900 ####[facility] [address] [place], [address] PT Coag (PPP) [Time] 33.5 s High 11.7-14.9 [facility] Comment on above: Order Comment: 411.2 Performed By: #### L 300.3900 ####[facility] [address] [place], [address] Prothrombin timeOrdered By: Karon Corrales on 07-31-2024 PT Coag (PPP) [Time] 33.5 s High 11.7-14.9 [facility] normalized rat io (INR) calculationOrdered By: Karon Corrales on 07-28-2024 INR Coag (Bld) [Relative time] 2.7 {INR} [facility] Prothrombin Time w/INRon INR Coag (PPP) [Relative time] 2.7 {INR} Normal [facility] Comment on above: Order Comment: 411.2 Performed By: #### L 300.3900 ####[facility] [address] [place], [address] PT Coag (PPP) [Time] 29.6 s High 11.7-14.9 [facility] Comment on above: Order Comment: 411.2 Performed By: #### L 300.3900 ####[facility] [address] [place], [address] Prothrombin timeOrdered By: Karon Corrales on 07-28-2024 PT Coag (PPP) [Time] 29.6 s High 11.7-14.9 [facility] normalized rat io (INR) calculationOrdered By: Carlos Cavazos on 07-25-2024 INR Coag (Bld) [Relative time] 3.0 {INR} [facility] Prothrombin Time w/INRon INR Coag (PPP) [Relative time] 3.0 {INR} Normal [facility] Comment on above: Order Comment: 411-2 Performed By: #### L 300.3900 ####[facility] [address] [place], [address] Prothrombin timeOrdered By: Carlos Cavazos on 07-25-2024 PT Coag (PPP) [Time] 32.1 s High 11.7-14.9 [facility] Comment on above: Order Comment: 411-2 Performed By: #### L 300.3900 ####[facility] [address] [place], [place], [phone] International normalized rat io (INR) calculationOrdered By: Karon Corrales on 07-24-2024 INR Coag (Bld) [Relative time] 3.4 {INR} [facility] Prothrombin Time w/INRon INR Coag (PPP) [Relative time] 3.4 {INR} Normal [facility] Comment on above: Order Comment: 411.2 Performed By: #### L 300.3900 ####[facility] [address] [place], [address] Prothrombin timeOrdered By: Karon Corrales on 07-24-2024 PT Coag (PPP) [Time] 35.4 s High 11.7-14.9 [facility] Comment on above: Order Comment: 411.2 Performed By: #### L 300.3900 ####[facility] [address] [place], [place], [phone]) International normalized rat io (INR) calculationOrdered By: Karon Corrales on 07-21-2024 INR Coag (Bld) [Relative time] 1.6 {INR} [facility] Prothrombin Time w/INRon INR Coag (PPP) [Relative time] 1.6 {INR} Normal [facility] Comment on above: Order Comment: 411.2 Performed By: #### L 300.3900 ####[facility] [address] [place], [place], [phone](179) PT Coag (PPP) [Time] 19.6 s High 11.7-14.9 [facility] Comment on above: Order Comment: 411.2 Performed By: #### L 300.3900 ####[facility] [address] [place], [place], [phone](506) Prothrombin timeOrdered By: Karon Corrales on 07-21-2024 PT Coag (PPP) [Time] 19.6 s High 11.7-14.9 [facility] normalized rat io (INR) calculationOrdered By: Karon Corrales on 07-17-2024 INR Coag (Bld) [Relative time] 2.9 {INR} [facility] Prothrombin Time w/INRon INR Coag (PPP) [Relative time] 2.9 {INR} Normal [facility] Comment on above: Order Comment: 411.2 Performed By: #### L 300.3900 ####[facility] [address] [place], [place], [phone] PT Coag (PPP) [Time] 31.1 s High 11.7-14.9 [facility] Comment on above: Order Comment: 411.2 Performed By: #### L 300.3900 ####[facility] [address] [place], [place], [phone] Prothrombin timeOrdered By: Karon Corrales on 07-17-2024 PT Coag (PPP) [Time] 31.1 s High 11.7-14.9 [facility] normalized rat io (INR) calculationOrdered By: Carlos Cavazos on 07-14-2024 INR Coag (Bld) [Relative time] 2.5 {INR} [facility] Prothrombin Time w/INRon INR Coag (PPP) [Relative time] 2.5 {INR} Normal [facility] Comment on above: Order Comment: 411-2 Performed By: #### L 300.3900 ####[facility] [address] [place], [place], [phone](641) PT Coag (PPP) [Time] 27.5 s High 11.7-14.9 [facility] Comment on above: Order Comment: 411-2 Performed By: #### L 300.3900 ####[facility] [address] [place], [place], [phone](387) Prothrombin timeOrdered By: Carlos Cavazos on 07-14-2024 PT Coag (PPP) [Time] 27.5 s High 11.7-14.9 [facility] normalized rat io (INR) calculationOrdered By: Carlos Cavazos on 07-11-2024 INR Coag (Bld) [Relative time] 2.5 {INR} [facility] Prothrombin Time w/INRon INR Coag (PPP) [Relative time] 2.5 {INR} Normal [facility] Comment on above: Performed By: #### L 300.3900 ####[facility] [address] [place], [place], [phone] PT Coag (PPP) [Time] 27.7 s High 11.7-14.9 [facility] Comment on above: Performed By: #### L 300.3900 ####[facility] [address] [place], [place], [phone]([phone] Prothrombin timeOrdered By: Carlos Cavazos on 07-11-2024 PT Coag (PPP) [Time] 27.7 s High 11.7-14.9 [facility] Prothrombin Time w/INRon INR Normal [facility] Comment on above: Order Comment: 411.2 Result Comment: QNS TUBE NOT FILLED Performed By: #### L 300.3900 ####[facility] [address] [place], [place], [phone] PROTIME Normal 11.7-14.9 [facility] Comment on above: Order Comment: 411.2 Result Comment: QNS TUBE NOT FILLED Performed By: #### L 300.3900 ####[facility] [address] [place], [place], [phone]) International normalized rat io (INR) calculationOrdered By: Kvng Crisostomo on 07-07-2024 INR Coag (Bld) [Relative time] 2.5 {INR} [facility] Prothrombin Time w/INRon INR Coag (PPP) [Relative time] 2.5 {INR} Normal [facility] Comment on above: Order Comment: 411.2 Performed By: #### L 300.3900 ####[facility] [address] [place], [address] PT Coag (PPP) [Time] 27.2 s High 11.7-14.9 [facility] Comment on above: Order Comment: 411.2 Performed By: #### L 300.3900 ####[facility] [address] [place], [address] Prothrombin timeOrdered By: Kvng Crisostomo on 07-07-2024 PT Coag (PPP) [Time] 27.2 s High 11.7-14.9 [facility] normalized rat io (INR) calculationOrdered By: Kvng Crisostomo on 07-03-2024 INR Coag (Bld) [Relative time] 2.5 {INR} [facility] Prothrombin Time w/INRon INR Coag (PPP) [Relative time] 2.5 {INR} Normal [facility] Comment on above: Order Comment: 411.2 Performed By: #### L 300.3900 ####[facility] [address] [place], [address] PT Coag (PPP) [Time] 27.2 s High 11.7-14.9 [facility] Comment on above: Order Comment: 411.2 Performed By: #### L 300.3900 ####[facility] [address] [place], [address] Prothrombin timeOrdered By: Babbaljeet Crisostomo on 07-03-2024 PT Coag (PPP) [Time] 27.2 s High 11.7-14.9 [facility] normalized rat io (INR) calculationOrdered By: Babbaljeet Crisostomo on 06-30-2024 INR Coag (Bld) [Relative time] 2.4 {INR} [facility] Prothrombin Time w/INRon INR Coag (PPP) [Relative time] 2.4 {INR} Normal [facility] Comment on above: Order Comment: 411.2 Performed By: #### L 300.3900 ####[facility] [address] [place], [address] PT Coag (PPP) [Time] 26.8 s High 11.7-14.9 [facility] Comment on above: Order Comment: 411.2 Performed By: #### L 300.3900 ####[facility] [address] [place], [address] Prothrombin timeOrdered By: Babbaljeet Crisostomo on 06-30-2024 PT Coag (PPP) [Time] 26.8 s High 11.7-14.9 [facility] normalized rat io (INR) calculationOrdered By: Babbaljeet Crisostomo on 06-26-2024 INR Coag (Bld) [Relative time] 2.5 {INR} [facility] Prothrombin Time w/INRon INR Coag (PPP) [Relative time] 2.5 {INR} Normal [facility] Comment on above: Order Comment: 411.2 Performed By: #### L 300.3900 ####[facility] [address] [place], [address] PT Coag (PPP) [Time] 27.5 s High 11.7-14.9 [facility] Comment on above: Order Comment: 411.2 Performed By: #### L 300.3900 ####[facility] [address] [place], [address] Prothrombin timeOrdered By: Kvng Crisostomo on 06-26-2024 PT Coag (PPP) [Time] 27.5 s High 11.7-14.9 [facility] normalized rat io (INR) calculationOrdered By: Carlos Cavazos on 06-23-2024 INR Coag (Bld) [Relative time] 2.8 {INR} [facility] Prothrombin Time w/INRon INR Coag (PPP) [Relative time] 2.8 {INR} Normal [facility] Comment on above: Order Comment: 411-2 Performed By: #### L 300.3900 ####[facility] [address] [place], [address] PT Coag (PPP) [Time] 29.7 s High 11.7-14.9 [facility] Comment on above: Order Comment: 411-2 Performed By: #### L 300.3900 ####[facility] [address] [place], [address] Prothrombin timeOrdered By: Carlos Cavazos on 06-23-2024 PT Coag (PPP) [Time] 29.7 s High 11.7-14.9 [facility] normalized rat io (INR) calculationOrdered By: Kvng Crisostomo on 06-19-2024 INR Coag (Bld) [Relative time] 2.6 {INR} [facility] Prothrombin Time w/INRon INR Coag (PPP) [Relative time] 2.6 {INR} Normal [facility] Comment on above: Order Comment: 411.2 Performed By: #### L 300.3900 ####[facility] [address] [place], [address] PT Coag (PPP) [Time] 28.6 s High 11.7-14.9 [facility] Comment on above: Order Comment: 411.2 Performed By: #### L 300.3900 ####[facility] [address] [place], [address] Prothrombin timeOrdered By: Kvng Crisostomo on 06-19-2024 PT Coag (PPP) [Time] 28.6 s High 11.7-14.9 [facility] normalized rat io (INR) calculationOrdered By: Kvng Crisostomo on 06-16-2024 INR Coag (Bld) [Relative time] 2.5 {INR} [facility] Prothrombin Time w/INRon INR Coag (PPP) [Relative time] 2.5 {INR} Normal [facility] Comment on above: Order Comment: 411.2 Performed By: #### L 300.3900 ####[facility] [address] [place], [address] PT Coag (PPP) [Time] 27.3 s High 11.7-14.9 [facility] Comment on above: Order Comment: 411.2 Performed By: #### L 300.3900 ####[facility] [address] [place], [address] Prothrombin timeOrdered By: Kvng Crisostomo on 06-16-2024 PT Coag (PPP) [Time] 27.3 s High 11.7-14.9 [facility] normalized rat io (INR) calculationOrdered By: Kvng Crisostomo on 06-12-2024 INR Coag (Bld) [Relative time] 2.1 {INR} [facility] Prothrombin Time w/INRon INR Coag (PPP) [Relative time] 2.1 {INR} Normal [facility] Comment on above: Order Comment: 411.2 Performed By: #### L 300.3900 ####[facility] [address] [place], [place], [phone] PT Coag (PPP) [Time] 24.0 s High 11.7-14.9 [facility] Comment on above: Order Comment: 411.2 Performed By: #### L 300.3900 ####[facility] [address] [place], [address] Prothrombin timeOrdered By: Kvng Crisostomo on 06-12-2024 PT Coag (PPP) [Time] 24.0 s High 11.7-14.9 [facility] normalized rat io (INR) calculationOrdered By: Carlos Cavazos on 06-09-2024 INR Coag (Bld) [Relative time] 1.5 {INR} [facility] Prothrombin Time w/INRon INR Coag (PPP) [Relative time] 1.5 {INR} Normal [facility] Comment on above: Order Comment: 411-2 Performed By: #### L 300.3900 ####[facility] [address] [place], [address] PT Coag (PPP) [Time] 18.0 s High 11.7-14.9 [facility] Comment on above: Order Comment: 411-2 Performed By: #### L 300.3900 ####[facility] [address] [place], [address] Prothrombin timeOrdered By: Carlos Cavazos on 06-09-2024 PT Coag (PPP) [Time] 18.0 s High 11.7-14.9 [facility] normalized rat io (INR) calculationOrdered By: Kvng Crisostomo on 01-30-2025 INR Coag (Bld) [Relative time] 2.8 {INR} [facility] Prothrombin Time w/INRon INR Coag (PPP) [Relative time] 2.8 {INR} Normal [facility] Comment on above: Order Comment: 411.2 Performed By: #### L 300.3900 ####[facility] [address] [place], [place], [phone](353) PT Coag (PPP) [Time] 30.3 s High 11.7-14.9 [facility] Comment on above: Order Comment: 411.2 Performed By: #### L 300.3900 ####[facility] [address] [place], [place], [phone](660) Prothrombin timeOrdered By: Kvng Crisostomo on 06-05-2024 PT Coag (PPP) [Time] 30.3 s High 11.7-14.9 [facility] normalized rat io (INR) calculationOrdered By: Kvng Crisostomo on 06-02-2024 INR Coag (Bld) [Relative time] 2.6 {INR} [facility] Prothrombin Time w/INRon INR Coag (PPP) [Relative time] 2.6 {INR} Normal [facility] Comment on above: Order Comment: 411.2 Performed By: #### L 300.3900 ####[facility] [address] [place], [place], [phone](158 PT Coag (PPP) [Time] 28.6 s High 11.7-14.9 [facility] Comment on above: Order Comment: 411.2 Performed By: #### L 300.3900 ####[facility] [address] [place], [place], [phone] Prothrombin timeOrdered By: Kvng Crisostomo on 06-02-2024 PT Coag (PPP) [Time] 28.6 s High 11.7-14.9 [facility] normalized rat io (INR) calculationOrdered By: Kvng Crisostomo on 05-29-2024 INR Coag (Bld) [Relative time] 2.5 {INR} [facility] Prothrombin Time w/INRon INR Coag (PPP) [Relative time] 2.5 {INR} Normal [facility] Comment on above: Order Comment: 411.2 Performed By: #### L 300.3900 ####[facility] [address] [place], [address] PT Coag (PPP) [Time] 27.7 s High 11.7-14.9 [facility] Comment on above: Order Comment: 411.2 Performed By: #### L 300.3900 ####[facility] [address] [place], [address] Prothrombin timeOrdered By: Kvng Crisostomo on 05-29-2024 PT Coag (PPP) [Time] 27.7 s High 11.7-14.9 [facility] normalized rat io (INR) calculationOrdered By: Carlos Cavazos on 05-26-2024 INR Coag (Bld) [Relative time] 2.2 {INR} [facility] Prothrombin Time w/INRon INR Coag (PPP) [Relative time] 2.2 {INR} Normal [facility] Comment on above: Order Comment: 411-2 Performed By: #### L 300.3900 ####[facility] [address], [address] PT Coag (PPP) [Time] 24.5 s High 11.7-14.9 [facility] Comment on above: Order Comment: 411-2 Performed By: #### L 300.3900 ####[facility] [address] [place], [place], [address] Prothrombin timeOrdered By: Carlos Cavazos on 05-26-2024 PT Coag (PPP) [Time] 24.5 s High 11.7-14.9 [facility] normalized rat io (INR) calculationOrdered By: Kvng Crisostomo on 05-22-2024 INR Coag (Bld) [Relative time] 2.8 {INR} [facility] Prothrombin Time w/INRon INR Coag (PPP) [Relative time] 2.8 {INR} Normal [facility] Comment on above: Order Comment: 411.2 Performed By: #### L 300.3900 ####[facility] [address] [place], [address] PT Coag (PPP) [Time] 30.3 s High 11.7-14.9 [facility] Comment on above: Order Comment: 411.2 Performed By: #### L 300.3900 ####[facility] [address] [place], [address] Prothrombin timeOrdered By: Kvng Crisostomo on 05-22-2024 PT Coag (PPP) [Time] 30.3 s High 11.7-14.9 [facility] normalized rat io (INR) calculationOrdered By: Kvng Crisostomo on 05-20-2024 INR Coag (Bld) [Relative time] 4.0 {INR} High [facility] Comment on above: CRITICAL VALUE CASEY D TO [id number]/14/25 0828 Diana Mattson.RESULTS READ BACK BY SAME. Prothrombin Time w/INRon INR Coag (PPP) [Relative time] 4.0 {INR} Invalid Interpretation Code [facility] Comment on above: Order Comment: 411.2 Result Comment: CRIT ICAL VALUE CALLED TO UMIWIVQFT20/14/25 0828 Diana Mattson.RESULTS READ BACK BY SAME. Performed By: #### L 300.3900 ####[facility] [address] [place], [place], [phone] PT Coag (PPP) [Time] 39.9 s High 11.7-14.9 [facility] Comment on above: Order Comment: 411.2 Performed By: #### L 300.3900 ####[facility] [address] [place], [place], [phone] Prothrombin timeOrdered By: Kvng Crisostomo on 05-20-2024 PT Coag (PPP) [Time] 39.9 s High 11.7-14.9 [facility] normalized rat io (INR) calculationOrdered By: Kvng Crisostomo on 05-19-2024 INR Coag (Bld) [Relative time] 3.4 {INR} [facility] Prothrombin Time w/INRon INR Coag (PPP) [Relative time] 3.4 {INR} Normal [facility] Comment on above: Order Comment: 411.2 Performed By: #### L 300.3900 ####[facility] [address] [place], [place], [phone]) PT Coag (PPP) [Time] 35.4 s High 11.7-14.9 [facility] Comment on above: Order Comment: 411.2 Performed By: #### L 300.3900 ####[facility] [address] [place], [place], [phone] Prothrombin timeOrdered By: Kvng Crisostomo on 05-19-2024 PT Coag (PPP) [Time] 35.4 s High 11.7-14.9 [facility] normalized rat io (INR) calculationOrdered By: Kvng Crisostomo on 05-15-2024 INR Coag (Bld) [Relative time] 2.6 {INR} [facility] Prothrombin Time w/INRon INR Coag (PPP) [Relative time] 2.6 {INR} Normal [facility] Comment on above: Order Comment: 411.2 Performed By: #### L 300.3900 ####[facility] [address] [place], [place], [phone]) PT Coag (PPP) [Time] 28.7 s High 11.7-14.9 [facility] Comment on above: Order Comment: 411.2 Performed By: #### L 300.3900 ####[facility] [address] [place], [place], [phone]) Prothrombin timeOrdered By: Kvng Crisostomo on 05-15-2024 PT Coag (PPP) [Time] 28.7 s High 11.7-14.9 [facility] normalized rat io (INR) calculationOrdered By: Carlos Cavazos on 05-12-2024 INR Coag (Bld) [Relative time] 2.1 {INR} [facility] Prothrombin Time w/INRon INR Coag (PPP) [Relative time] 2.1 {INR} Normal [facility] Comment on above: Order Comment: 411-2 Performed By: #### L 300.3900 ####[facility] [address] [place], [place], [phone] PT Coag (PPP) [Time] 24.1 s High 11.7-14.9 [facility] Comment on above: Order Comment: 411-2 Performed By: #### L 300.3900 ####[facility] [address] [place], [place], [phone]) Prothrombin timeOrdered By: Carlos Cavazos on 05-12-2024 PT Coag (PPP) [Time] 24.1 s High 11.7-14.9 [facility] normalized rat io (INR) calculationOrdered By: Kvng Crisostomo on 05-09-2024 INR Coag (Bld) [Relative time] 3.4 {INR} [facility] Prothrombin Time w/INRon INR Coag (PPP) [Relative time] 3.4 {INR} Normal [facility] Comment on above: Order Comment: 411.2 Performed By: #### L 300.3900 ####[facility] [address] [place], [address] PT Coag (PPP) [Time] 35.4 s High 11.7-14.9 [facility] Comment on above: Order Comment: 411.2 Performed By: #### L 300.3900 ####[facility] [address] [place], [address] Prothrombin timeOrdered By: Kvng Crisostomo on 05-09-2024 PT Coag (PPP) [Time] 35.4 s High 11.7-14.9 [facility] normalized rat io (INR) calculationOrdered By: Kvng Crisostomo on 05-08-2024 INR Coag (Bld) [Relative time] 4.1 {INR} High [facility] Comment on above: CRITICAL VALUE CASEY D TO [facility]05/08/24 0950 Karen Haven.RESULTS READ BACK BY SAME. Prothrombin Time w/INRon INR Coag (PPP) [Relative time] 4.1 {INR} Invalid Interpretation Code [facility] Comment on above: Order Comment: 411.2 Result Comment: CRIT ICAL VALUE CALLED TO [facility]05/08/24 0950 Karen Haven.RESULTS READ BACK BY SAME. Performed By: #### L 710.3904 ####[facility] [address] [place], [place], [phone] PT Coag (PPP) [Time] 40.8 s High 11.7-14.9 [facility] Comment on above: Order Comment: 411.2 Performed By: #### L 300.3903 ####[facility] [address] [place], [place], [phone] Prothrombin timeOrdered By: Kvng Crisostomo on 05-08-2024 PT Coag (PPP) [Time] 40.8 s High 11.7-14.9 [facility] normalized rat io (INR) calculationOrdered By: Kvng Crisostomo on 05-05-2024 INR Coag (Bld) [Relative time] 3.2 {INR} [facility] Prothrombin Time w/INRon INR Coag (PPP) [Relative time] 3.2 {INR} Normal [facility] Comment on above: Order Comment: 411.2 Performed By: #### L 300.3900 ####[facility] [address] [place], [address] PT Coag (PPP) [Time] 32.5 s High 11.7-14.9 [facility] Comment on above: Order Comment: 411.2 Performed By: #### L 300.3900 ####[facility] [address] [place], [address] Prothrombin timeOrdered By: Kvng Crisostomo on 05-05-2024 PT Coag (PPP) [Time] 32.5 s High 11.7-14.9 [facility] normalized rat io (INR) calculationOrdered By: Kvng Crisostomo on 05-01-2024 INR Coag (Bld) [Relative time] 3.1 {INR} [facility] Prothrombin Time w/INRon INR Coag (PPP) [Relative time] 3.1 {INR} Normal [facility] Comment on above: Order Comment: 411.2 Performed By: #### L 300.3900 ####[facility] [address] [place], [address] PT Coag (PPP) [Time] 31.9 s High 11.7-14.9 [facility] Comment on above: Order Comment: 411.2 Performed By: #### L 300.3900 ####[facility] [address] [place], [address] Prothrombin timeOrdered By: Kvng Crisostomo on 05-01-2024 PT Coag (PPP) [Time] 31.9 s High 11.7-14.9 [facility] normalized rat io (INR) calculationOrdered By: Carlos Cavazos on 04-28-2024 INR Coag (Bld) [Relative time] 2.6 {INR} [facility] Prothrombin Time w/INRon INR Coag (PPP) [Relative time] 2.6 {INR} Normal [facility] Comment on above: Order Comment: 411-2 Performed By: #### L 300.3900 ####[facility] [address] [place], [address] PT Coag (PPP) [Time] 27.3 s High 11.7-14.9 [facility] Comment on above: Order Comment: 411-2 Performed By: #### L 300.3900 ####[facility] [address] [place], [address] Prothrombin timeOrdered By: Carlos Cavazos on 04-28-2024 PT Coag (PPP) [Time] 27.3 s High 11.7-14.9 [facility] normalized rat io (INR) calculationOrdered By: Kvng Crisostomo on 04-24-2024 INR Coag (Bld) [Relative time] 3.6 {INR} [facility] Prothrombin Time w/INRon INR Coag (PPP) [Relative time] 3.6 {INR} Normal [facility] Comment on above: Order Comment: 411.2 Performed By: #### L 300.3900 ####[facility] [address] [place], [address] PT Coag (PPP) [Time] 35.6 s High 11.7-14.9 [facility] Comment on above: Order Comment: 411.2 Performed By: #### L 300.3900 ####[facility] [address] [place], [address] Prothrombin timeOrdered By: Kvng Crisostomo on 04-24-2024 PT Coag (PPP) [Time] 35.6 s High 11.7-14.9 [facility] normalized rat io (INR) calculationOrdered By: Carlos Cavazos on 04-21-2024 INR Coag (Bld) [Relative time] 2.8 {INR} [facility] Prothrombin Time w/INRon INR Coag (PPP) [Relative time] 2.8 {INR} Normal [facility] Comment on above: Order Comment: 411-2 Performed By: #### L 300.3900 ####[facility] [address] [place], [address] PT Coag (PPP) [Time] 29.4 s High 11.7-14.9 [facility] Comment on above: Order Comment: 411-2 Performed By: #### L 300.3900 ####[facility] [address] [place], [place], [phone] Prothrombin timeOrdered By: Carlos Cavazos on 04-21-2024 PT Coag (PPP) [Time] 29.4 s High 11.7-14.9 [facility] normalized rat io (INR) calculationOrdered By: Kvng Crisostomo on 04-17-2024 INR Coag (Bld) [Relative time] 3.1 {INR} [facility] Prothrombin Time w/INRon INR Coag (PPP) [Relative time] 3.1 {INR} Normal [facility] Comment on above: Order Comment: 411.2 Performed By: #### L 300.3900 ####[facility] [address] [place], [phone] Prothrombin timeOrdered By: Kvng Crisostomo on 04-17-2024 PT Coag (PPP) [Time] 31.3 s High 11.7-14.9 [facility] Comment on above: Order Comment: 411.2 Performed By: #### L 300.3900 ####[facility] [address] [place], [address] International normalized rat io (INR) calculationOrdered By: Kvng Crisostomo on 04-14-2024 INR Coag (Bld) [Relative time] 3.3 {INR} [facility] Prothrombin Time w/INRon INR Coag (PPP) [Relative time] 3.3 {INR} Normal [facility] Comment on above: Order Comment: 411.2 Performed By: #### L 300.3900 ####[facility] [address] [place], [place], [phone](228) PT Coag (PPP) [Time] 33.2 s High 11.7-14.9 [facility] Comment on above: Order Comment: 411.2 Performed By: #### L 300.3900 ####[facility] [address] [place], [place], [phone] Prothrombin timeOrdered By: Kvng Crisostomo on 04-14-2024 PT Coag (PPP) [Time] 33.2 s High 11.7-14.9 [facility] normalized rat io (INR) calculationOrdered By: Kvng Crisostomo on 04-10-2024 INR Coag (Bld) [Relative time] 2.8 {INR} [facility] Prothrombin Time w/INRon INR Coag (PPP) [Relative time] 2.8 {INR} Normal [facility] Comment on above: Order Comment: 411.2 Performed By: #### L 300.3900 ####[facility] [address] [place], [address] PT Coag (PPP) [Time] 29.2 s High 11.7-14.9 [facility] Comment on above: Order Comment: 411.2 Performed By: #### L 300.3900 ####[facility] [address] [place], [place], [phone] Prothrombin timeOrdered By: Kvng Crisostomo on 04-10-2024 PT Coag (PPP) [Time] 29.2 s High 11.7-14.9 [facility] normalized rat io (INR) calculationOrdered By: Carlos Cavazos on 04-07-2024 INR Coag (Bld) [Relative time] 2.7 {INR} [facility] Prothrombin Time w/INRon INR Coag (PPP) [Relative time] 2.7 {INR} Normal [facility] Comment on above: Order Comment: 411-2 Performed By: #### L 300.3900 ####[facility] [address] [place], [address] PT Coag (PPP) [Time] 28.1 s High 11.7-14.9 [facility] Comment on above: Order Comment: 411-2 Performed By: #### L 300.3900 ####[facility] [address] [place], [address] Prothrombin timeOrdered By: Carlos Cavazos on 04-07-2024 PT Coag (PPP) [Time] 28.1 s High 11.7-14.9 [facility] normalized rat io (INR) calculationOrdered By: Kvng Crisostomo on 04-04-2024 INR Coag (Bld) [Relative time] 2.8 {INR} [facility] Prothrombin Time w/INRon INR Coag (PPP) [Relative time] 2.8 {INR} Normal [facility] Comment on above: Order Comment: 411.2 Performed By: #### L 300.3900 ####[facility] [address] [place], [address] PT Coag (PPP) [Time] 28.9 s High 11.7-14.9 [facility] Comment on above: Order Comment: 411.2 Performed By: #### L 300.3900 ####[facility] [address] [place], [address] Prothrombin timeOrdered By: Kvng Crisostomo on 04-04-2024 PT Coag (PPP) [Time] 28.9 s High 11.7-14.9 [facility] normalized rat io (INR) calculationOrdered By: Carlos Cavazos on 03-31-2024 INR Coag (Bld) [Relative time] 2.6 {INR} [facility] Prothrombin Time w/INRon INR Coag (PPP) [Relative time] 2.6 {INR} Normal [facility] Comment on above: Order Comment: 411-2 Performed By: #### L 300.3900 ####[facility] [address] [place], [address] PT Coag (PPP) [Time] 27.3 s High 11.7-14.9 [facility] Comment on above: Order Comment: 411-2 Performed By: #### L 300.3900 ####[facility] [address] [place], [address] Prothrombin timeOrdered By: Carlos Cavazos on 03-31-2024 PT Coag (PPP) [Time] 27.3 s High 11.7-14.9 [facility] normalized rat io (INR) calculationOrdered By: [employer] on 03-27-2024 INR Coag (Bld) [Relative time] 2.2 {INR} [facility] Prothrombin Time w/INRon INR Coag (PPP) [Relative time] 2.2 {INR} Normal [facility] Comment on above: Order Comment: 411.2 Performed By: #### L 300.3900 ####[facility] [address] [place], [address] PT Coag (PPP) [Time] 24.3 s High 11.7-14.9 [facility] Comment on above: Order Comment: 411.2 Performed By: #### L 300.3900 ####[facility] [address] [place], [address] Prothrombin timeOrdered By: [employer] on 03-27-2024 PT Coag (PPP) [Time] 24.3 s High 11.7-14.9 [facility] normalized rat io (INR) calculationOrdered By: Kvng Crisostomo on 03-24-2024 INR Coag (Bld) [Relative time] 1.8 {INR} [facility] Prothrombin Time w/INRon INR Coag (PPP) [Relative time] 1.8 {INR} Normal [facility] Comment on above: Order Comment: 411.2 Performed By: #### L 300.3900 ####[facility] [address] [place], [address] PT Coag (PPP) [Time] 20.7 s High 11.7-14.9 [facility] Comment on above: Order Comment: 411.2 Performed By: #### L 300.3900 ####[facility] [address] [place], [address] Prothrombin timeOrdered By: Kvng Crisostomo on 03-24-2024 PT Coag (PPP) [Time] 20.7 s High 11.7-14.9 [facility] normalized rat io (INR) calculationOrdered By: [employer] on 03-20-2024 INR Coag (Bld) [Relative time] 1.8 {INR} [facility] Prothrombin Time w/INRon INR Coag (PPP) [Relative time] 1.8 {INR} Normal [facility] Comment on above: Order Comment: 411.2 Performed By: #### L 300.3900 ####[facility] [address] [place], [address] PT Coag (PPP) [Time] 20.9 s High 11.7-14.9 [facility] Comment on above: Order Comment: 411.2 Performed By: #### L 300.3900 ####[facility] [address] [place], [address] Prothrombin timeOrdered By: [employer] on 03-20-2024 PT Coag (PPP) [Time] 20.9 s High 11.7-14.9 [facility] normalized rat io (INR) calculationOrdered By: Babbaljeet Crisostomo on 03-19-2024 INR Coag (Bld) [Relative time] 2.4 {INR} [facility] Prothrombin Time w/INRon INR Coag (PPP) [Relative time] 2.4 {INR} Normal [facility] Comment on above: Order Comment: 411.2 Performed By: #### L 300.3900 ####[facility] [address] [place], [address] PT Coag (PPP) [Time] 26.4 s High 11.7-14.9 [facility] Comment on above: Order Comment: 411.2 Performed By: #### L 300.3900 ####[facility] [address] [place], [address] Prothrombin timeOrdered By: Kvng Crisostomo on 03-19-2024 PT Coag (PPP) [Time] 26.4 s High 11.7-14.9 [facility] normalized rat io (INR) calculationOrdered By: [employer] on 03-18-2024 INR Coag (Bld) [Relative time] 3.2 {INR} [facility] Prothrombin Time w/INRon INR Coag (PPP) [Relative time] 3.2 {INR} Normal [facility] Comment on above: Order Comment: 411.2 Performed By: #### L 300.3900 ####[facility] [address] [place], [address] PT Coag (PPP) [Time] 32.3 s High 11.7-14.9 [facility] Comment on above: Order Comment: 411.2 Performed By: #### L 300.3900 ####[facility] [address] [place], [address] Prothrombin timeOrdered By: [employer] on 03-18-2024 PT Coag (PPP) [Time] 32.3 s High 11.7-14.9 [facility] normalized rat io (INR) calculationOrdered By: [employer] on 03-17-2024 INR Coag (Bld) [Relative time] 3.6 {INR} [facility] Prothrombin Time w/INRon INR Coag (PPP) [Relative time] 3.6 {INR} Normal [facility] Comment on above: Order Comment: 411.2 Performed By: #### L 300.3900 ####[facility] [address] [place], [address] PT Coag (PPP) [Time] 35.7 s High 11.7-14.9 [facility] Comment on above: Order Comment: 411.2 Performed By: #### L 300.3900 ####[facility] [address] [place], [address] Prothrombin timeOrdered By: [employer] on 03-17-2024 PT Coag (PPP) [Time] 35.7 s High 11.7-14.9 [facility] normalized rat io (INR) calculationOrdered By: Carlos Cavazos on 03-14-2024 INR Coag (Bld) [Relative time] 3.5 {INR} [facility] Prothrombin Time w/INRon INR Coag (PPP) [Relative time] 3.5 {INR} Normal [facility] Comment on above: Order Comment: 411-2 Performed By: #### L 300.3900 ####[facility] [address] [place], [address] PT Coag (PPP) [Time] 35.0 s High 11.7-14.9 [facility] Comment on above: Order Comment: 411-2 Performed By: #### L 300.3900 ####[facility] [address] [place], [address] Prothrombin timeOrdered By: Carlos Cavazso on 03-14-2024 PT Coag (PPP) [Time] 35.0 s High 11.7-14.9 [facility] normalized rat io (INR) calculationOrdered By: [employer] on 03-13-2024 INR Coag (Bld) [Relative time] 3.2 {INR} [facility] Prothrombin Time w/INRon INR Coag (PPP) [Relative time] 3.2 {INR} Normal [facility] Comment on above: Performed By: #### L 300.3900 ####[facility] [address] [place], [address] PT Coag (PPP) [Time] 32.2 s High 11.7-14.9 [facility] Comment on above: Performed By: #### L 300.3900 ####[facility] [address] [place], [address] Prothrombin timeOrdered By: [employer] on 03-13-2024 PT Coag (PPP) [Time] 32.2 s High 11.7-14.9 [facility] Prothrombin Time w/INRon INR Coag (PPP) [Relative time] 2.6 {INR} Normal [facility] Comment on above: Order Comment: 411.2 Performed By: #### L 300.3900 ####[facility] [address] [place], [address] PT Coag (PPP) [Time] 27.7 s High 11.7-14.9 [facility] Comment on above: Order Comment: 411.2 Performed By: #### L 300.3900 ####[facility] [address] [place], [address] Prothrombin Time w/INRon INR Coag (PPP) [Relative time] 3.1 {INR} Normal [facility] Comment on above: Order Comment: 411.2 Performed By: #### L 300.3900 ####[facility] [address] [place], [address] PT Coag (PPP) [Time] 31.4 s High 11.7-14.9 [facility] Comment on above: Order Comment: 411.2 Performed By: #### L 300.3900 ####[facility] [address] [place], [address] Prothrombin Time w/INRon INR Coag (PPP) [Relative time] 3.1 {INR} Normal [facility] Comment on above: Order Comment: 411.2 Performed By: #### L 300.3900 ####[facility] [address] [place], [address] PT Coag (PPP) [Time] 31.8 s High 11.7-14.9 [facility] Comment on above: Order Comment: 411.2 Performed By: #### L 300.3900 ####[facility] [address] [place], [address] Prothrombin Time w/INRon INR Coag (PPP) [Relative time] 3.0 {INR} Normal [facility] Comment on above: Order Comment: 411.2 Performed By: #### L 300.3900 ####[facility] [address] [place], [address] PT Coag (PPP) [Time] 30.6 s High 11.7-14.9 [facility] Comment on above: Order Comment: 411.2 Performed By: #### L 300.3900 ####[facility] [address] [place], [address] Prothrombin Time w/INRon INR Coag (PPP) [Relative time] 2.6 {INR} Normal [facility] Comment on above: Order Comment: 411-2 Performed By: #### L 300.3900 ####[facility] [address] [place], [address] PT Coag (PPP) [Time] 27.5 s High 11.7-14.9 [facility] Comment on above: Order Comment: 411-2 Performed By: #### L 300.3900 ####[facility] [address] [place], [address] Prothrombin Time w/INRon INR Coag (PPP) [Relative time] 2.3 {INR} Normal [facility] Comment on above: Order Comment: 411.2 Performed By: #### L 300.3900 ####[facility] [address] [place], [address] PT Coag (PPP) [Time] 25.5 s High 11.7-14.9 [facility] Comment on above: Order Comment: 411.2 Performed By: #### L 300.3900 ####[facility] [address] [place], [address] Prothrombin Time w/INRon INR Coag (PPP) [Relative time] 1.9 {INR} Normal [facility] Comment on above: Order Comment: 411.2 Performed By: #### L 300.3900 ####[facility] [address] [place], [address] PT Coag (PPP) [Time] 21.3 s High 11.7-14.9 [facility] Comment on above: Order Comment: 411.2 Performed By: #### L 300.3900 ####[facility] [address] [place], [address] Prothrombin Time w/INRon INR Coag (PPP) [Relative time] 2.5 {INR} Normal [facility] Comment on above: Order Comment: 411.2 Performed By: #### L 300.3900 ####[facility] [address] [place], [address] PT Coag (PPP) [Time] 26.5 s High 11.7-14.9 [facility] Comment on above: Order Comment: 411.2 Performed By: #### L 300.3900 ####[facility] [address] [place], [address] Prothrombin Time w/INRon INR Coag (PPP) [Relative time] 2.9 {INR} Normal [facility] Comment on above: Order Comment: 411.2 Performed By: #### L 300.3900 ####[facility] [address] [place], [address] PT Coag (PPP) [Time] 30.2 s High 11.7-14.9 [facility] Comment on above: Order Comment: 411.2 Performed By: #### L 300.3900 ####[facility] [address] [place], [address] Prothrombin Time w/INRon INR Coag (PPP) [Relative time] 3.6 {INR} Normal [facility] Comment on above: Order Comment: 411.2 Performed By: #### L 300.3900 ####[facility] [address] [place], [address] PT Coag (PPP) [Time] 35.3 s High 11.7-14.9 [facility] Comment on above: Order Comment: 411.2 Performed By: #### L 300.3900 ####[facility] [address] [place], [address] Prothrombin Time w/INRon INR Coag (PPP) [Relative time] 2.8 {INR} Normal [facility] Comment on above: Order Comment: 411-2 Performed By: #### L 300.3900 ####[facility] [address] [place], [address] PT Coag (PPP) [Time] 29.4 s High 11.7-14.9 [facility] Comment on above: Order Comment: 411-2 Performed By: #### L 300.3900 ####[facility] [address] [place], [address] Prothrombin Time w/INRon INR Coag (PPP) [Relative time] 2.9 {INR} Normal [facility] Comment on above: Order Comment: 411.2 Performed By: #### L 300.3900 ####[facility] [address] [place], [address] PT Coag (PPP) [Time] 29.9 s High 11.7-14.9 [facility] Comment on above: Order Comment: 411.2 Performed By: #### L 300.3900 ####[facility] [address] [place], [address] Prothrombin Time w/INRon INR Coag (PPP) [Relative time] 2.2 {INR} Normal [facility] Comment on above: Order Comment: 411.2 Performed By: #### L 300.3900 ####[facility] [address] [place], [address] PT Coag (PPP) [Time] 24.1 s High 11.7-14.9 [facility] Comment on above: Order Comment: 411.2 Performed By: #### L 300.3900 ####[facility] [address] [place], [address] Prothrombin Time w/INRon INR Coag (PPP) [Relative time] 2.1 {INR} Normal [facility] Comment on above: Order Comment: 411-2 Performed By: #### L 300.3900 ####[facility] [address] [place], [address] PT Coag (PPP) [Time] 23.0 s High 11.7-14.9 [facility] Comment on above: Order Comment: 411-2 Performed By: #### L 300.3900 ####[facility] [address] [place], [address] Prothrombin Time w/INRon INR Coag (PPP) [Relative time] 2.8 {INR} Normal [facility] Comment on above: Performed By: #### L 300.3900 ####[facility] [address] [place], [address] PT Coag (PPP) [Time] 28.9 s High 11.7-14.9 [facility] Comment on above: Performed By: #### L 300.3900 ####[facility] [address] [place], [address] Protime w/INR Fingerstickon 01-29-2024 INR Coag (PPP) [Relative time] 3.2 {INR} Normal [facility] Comment on above: Result Comment: Crit ical Value > 4.0 Performed By: #### L 9200.0000 ####[facility] [address] [place], [address] Protime Coagsen 31.8 SEC High 11.7-14.9 [facility] Comment on above: Performed By: #### L 9200.0000 ####[facility] [address] [place], [address] KEPPRA (LEVETIRACETAM)on KEPPRA 35.2 ug/mL Normal 10.0-40.0 [facility] Comment on above: Order Comment: 411-2 Result Comment: Perf ormed at: - [facility] [address] [id number] Director: Alpesh Vázquez MD, Phone: [phone] Performed By: #### L 300.3900, L3310.0000 ####[facility] [address] [place], [address] Prothrombin Time w/INRon INR Coag (PPP) [Relative time] 2.9 {INR} Normal [facility] Comment on above: Order Comment: 411-2 Performed By: #### L 300.3900, L3310.0000 ####[facility] [address] [place], [address] PT Coag (PPP) [Time] 30.1 s High 11.7-14.9 [facility] Comment on above: Order Comment: 411-2 Performed By: #### L 300.3900, L3310.0000 ####[facility] [address] [place], [address] Prothrombin Time w/INRon INR Coag (PPP) [Relative time] 2.3 {INR} Normal [facility] Comment on above: Order Comment: 411-2 Performed By: #### L 300.3900 ####[facility] [address] [place], [address] PT Coag (PPP) [Time] 25.2 s High 11.7-14.9 [facility] Comment on above: Order Comment: 411-2 Performed By: #### L 300.3900 ####[facility] [address] [place], [address] Prothrombin Time w/INRon INR Coag (PPP) [Relative time] 2.7 {INR} Normal [facility] Comment on above: Order Comment: 411-2 Performed By: #### L 300.3900 ####[facility] [address] [place], [address] PT Coag (PPP) [Time] 28.3 s High 11.7-14.9 [facility] Comment on above: Order Comment: 411-2 Performed By: #### L 300.3900 ####[facility] [address] [place], [address] Protime w/INR Fingerstickon 01-10-2024 INR Coag (PPP) [Relative time] 3.5 {INR} Normal [facility] Comment on above: Result Comment: Crit ical Value > 4.0 Performed By: #### L 9200.0000 ####[facility] [address] [place], [address] Protime Coagsen 34.2 SEC High 11.7-14.9 [facility] Comment on above: Performed By: #### L 9200.0000 ####[facility] [address] [place], [address] CBC-Complete Blood Cnt No Di ffon 01-08-2024 Erythrocyte distribution width (RBC) [Ratio] 15.2 % High 11.6-14.6 [facility] Comment on above: Order Comment: 411-2 Performed By: #### L 100.0500, L300.3900 ####[facility] [address] [place], [address] Hematocrit (Bld) [Volume fraction] 39.0 % Low 40-54 [facility] Comment on above: Order Comment: 411-2 Performed By: #### L 100.0500, L300.3900 ####[facility] [address] [place], [address] Hemoglobin (Bld) [Mass/Vol] 12.1 g/dL Low 13.0-16.5 [facility] Comment on above: Order Comment: 411-2 Performed By: #### L 100.0500, L300.3900 ####[facility] [address] [place], [address] MCH (RBC) [Entitic mass] 27.1 pg Normal 27.0-32.0 [facility] Comment on above: Order Comment: 411-2 Performed By: #### L 100.0500, L300.3900 ####[facility] [address] [place], [address] MCHC (RBC) [Mass/Vol] 31.0 g/dL Low 32-36 [facility] Comment on above: Order Comment: 411-2 Performed By: #### L 100.0500, L300.3900 ####[facility] [address] [place], [address] MCV (RBC) [Entitic vol] 87.2 fL Normal 80-94 [facility] Comment on above: Order Comment: 411-2 Performed By: #### L 100.0500, L300.3900 ####[facility] [address] [place], [address] Platelet mean volume (Bld) [Entitic vol] 10.8 fL Normal 6.2-12.0 [facility] Comment on above: Order Comment: 411-2 Performed By: #### L 100.0500, L300.3900 ####[facility] [address] [place], [address] Platelets (Bld) [#/Vol] 300 10*3/uL Normal 150-450 [facility] Comment on above: Order Comment: 411-2 Performed By: #### L 100.0500, L300.3900 ####[facility] [address] [place], [address] RBC (Bld) [#/Vol] 4.47 10*6/uL Low 4.6-6.2 [facility] Comment on above: Order Comment: 411-2 Performed By: #### L 100.0500, L300.3900 ####[facility] [address] [place], [address] RDW SD 48.7 fl High 35.1-43.9 [facility] Comment on above: Order Comment: 411-2 Performed By: #### L 100.0500, L300.3900 ####[facility] [address] [place], [address] WBC (Bld) [#/Vol] 13.0 10*3/uL High 4.4-11.0 [facility] Comment on above: Order Comment: 411-2 Performed By: #### L 100.0500, L300.3900 ####[facility] [address] [place], [address] Prothrombin Time w/INRon INR Coag (PPP) [Relative time] 3.9 {INR} Normal [facility] Comment on above: Order Comment: 411-2 Performed By: #### L 100.0500, L300.3900 ####[facility] [address] [place], [address] PT Coag (PPP) [Time] 37.8 s High 11.7-14.9 [facility] Comment on above: Order Comment: 411-2 Performed By: #### L 100.0500, L300.3900 ####[facility] [address] [place], [address] Urine Cultureon 01-03-2024 URC Culture exhibits no growth. Normal [facility] Comment on above: Performed By: #### M 100.2200, L400.0001, L300.3900 ####[facility] [address] [place], [address] Prothrombin Time w/INRon INR Coag (PPP) [Relative time] 3.0 {INR} Normal [facility] Comment on above: Performed By: #### M 100.2200, L400.0001, L300.3900 ####[facility] [address] [place], [address] PT Coag (PPP) [Time] 30.7 s High 11.7-14.9 [facility] Comment on above: Performed By: #### M 100.2200, L400.0001, L300.3900 ####[facility] [address] [place], [address] Urinalysis, Completeon 01-01 RBC 0-5 SEEN Normal 0-5 [facility] Comment on above: Order Comment: CLEAN CATCH Performed By: #### M 100.2200, L400.0001, L300.3900 ####[facility] [address] [place], [address] BACTERIA 0 SEEN Normal None Seen [facility] Comment on above: Order Comment: CLEAN CATCH Performed By: #### M 100.2200, L400.0001, L300.3900 ####[facility] [address] [place], [address] EPI,SQUAMOUS 0 SEEN Normal 0-5 [facility] Comment on above: Order Comment: CLEAN CATCH Performed By: #### M 100.2200, L400.0001, L300.3900 ####[facility] [address] [place], [address] Mucus Ql (Urine sed) 0 SEEN Normal [facility] Comment on above: Order Comment: CLEAN CATCH Performed By: #### M 100.2200, L400.0001, L300.3900 ####[facility] [address] [place], [address] WBC 0 SEEN Normal 0-5 [facility] Comment on above: Order Comment: CLEAN CATCH Performed By: #### M 100.2200, L400.0001, L300.3900 ####[facility] [address] [place], [address] Basic Metabolic Profile (BMP )on 01-01-2024 BUN/CRE 25.0 RATIO High 10-20 [facility] Comment on above: Order Comment: 411.2 Performed By: #### L 300.3900, L100.0500, L500.2500 ####[facility] [address] [place], [address] CA,Total 9.1 mg/dL Normal 8.5-10.1 [facility] Comment on above: Order Comment: 411.2 Performed By: #### L 300.3900, L100.0500, L500.2500 ####[facility] [address] [place], [address] Chloride [Moles/Vol] 104 mmol/L Normal 98-107 [facility] Comment on above: Order Comment: 411.2 Performed By: #### L 300.3900, L100.0500, L500.2500 ####[facility] [address] [place], [address] CO2 [Moles/Vol] 24.0 mmol/L Normal 21.0-32.0 [facility] Comment on above: Order Comment: 411.2 Performed By: #### L 300.3900, L100.0500, L500.2500 ####[facility] [address] [place], [address] Creatinine [Mass/Vol] 0.84 mg/dL Normal 0.70-1.30 [facility] Comment on above: Order Comment: 411.2 Result Comment: The validity of the calculated GFR GFRAA in patients over70 years has not been determined. Clinical correlation isessential. Performed By: #### L 300.3900, L100.0500, L500.2500 ####[facility] [address] [place], [address] EST GFR - AA 116 mL/min Normal >60 [facility] Comment on above: Order Comment: 411.2 Result Comment: Afri can [place] GFR Calc Performed By: #### L 300.3900, L100.0500, L500.2500 ####[facility] [address] [place], [address] GAP 9 Normal 5-15 [facility] Comment on above: Order Comment: 411.2 Performed By: #### L 300.3900, L100.0500, L500.2500 ####[facility] [address] [place], [address] GFR/1.73 sq M.predicted among non-blacks MDRD (S/P/Bld) [Vol rate/Area] 95 mL/min/{1.73_m2} Normal >60 [facility] Comment on above: Order Comment: 411.2 Result Comment: Non- GFR Calc Performed By: #### L 300.3900, L100.0500, L500.2500 ####[facility] [address] [place], [address] Glucose [Mass/Vol] 92 mg/dL Normal 74-[address] [facility] Comment on above: Order Comment: 411.2 Performed By: #### L 300.3900, L100.0500, L500.2500 ####[facility] [address] [place], [address] Potassium [Moles/Vol] 4.2 mmol/L Normal 3.5-5.1 [facility] Comment on above: Order Comment: 411.2 Performed By: #### L 300.3900, L100.0500, L500.2500 ####[facility] [address] [place], [address] Sodium [Moles/Vol] 137 mmol/L Normal 136-[address] [facility] Comment on above: Order Comment: 411.2 Performed By: #### L 300.3900, L100.0500, L500.2500 ####[facility] [address] [place], [address] Urea nitrogen [Mass/Vol] 21 mg/dL High 7-18 [facility] Comment on above: Order Comment: 411.2 Performed By: #### L 300.3900, L100.0500, L500.2500 ####[facility] [address] [place], [address] CBC-Complete Blood Cnt No Di ffon 01-01-2024 Erythrocyte distribution width (RBC) [Ratio] 14.9 % High 11.6-14.6 [facility] Comment on above: Order Comment: 411.2 Performed By: #### L 300.3900, L100.0500, L500.2500 ####[facility] [address] [place], [address] Hematocrit (Bld) [Volume fraction] 38.4 % Low 40-54 [facility] Comment on above: Order Comment: 411.2 Performed By: #### L 300.3900, L100.0500, L500.2500 ####[facility] [address] [place], [address] Hemoglobin (Bld) [Mass/Vol] 12.2 g/dL Low 13.0-16.5 [facility] Comment on above: Order Comment: 411.2 Performed By: #### L 300.3900, L100.0500, L500.2500 ####[facility] [address] [place], [address] MCH (RBC) [Entitic mass] 27.1 pg Normal 27.0-32.0 [facility] Comment on above: Order Comment: 411.2 Performed By: #### L 300.3900, L100.0500, L500.2500 ####[facility] [address] [place], [address] MCHC (RBC) [Mass/Vol] 31.8 g/dL Low 32-36 [facility] Comment on above: Order Comment: 411.2 Performed By: #### L 300.3900, L100.0500, L500.2500 ####[facility] [address] [place], [address] MCV (RBC) [Entitic vol] 85.3 fL Normal 80-94 [facility] Comment on above: Order Comment: 411.2 Performed By: #### L 300.3900, L100.0500, L500.2500 ####[facility] [address] [place], [address] Platelet mean volume (Bld) [Entitic vol] 10.1 fL Normal 6.2-12.0 [facility] Comment on above: Order Comment: 411.2 Performed By: #### L 300.3900, L100.0500, L500.2500 ####[facility] [address] [place], [address] Platelets (Bld) [#/Vol] 287 10*3/uL Normal 150-450 [facility] Comment on above: Order Comment: 411.2 Performed By: #### L 300.3900, L100.0500, L500.2500 ####[facility] [address] [place], [address] RBC (Bld) [#/Vol] 4.50 10*6/uL Low 4.6-6.2 [facility] Comment on above: Order Comment: 411.2 Performed By: #### L 300.3900, L100.0500, L500.2500 ####[facility] [address] [place], [address] RDW SD 46.5 fl High 35.1-43.9 [facility] Comment on above: Order Comment: 411.2 Performed By: #### L 300.3900, L100.0500, L500.2500 ####[facility] [address] [place], [address] WBC (Bld) [#/Vol] 14.8 10*3/uL High 4.4-11.0 [facility] Comment on above: Order Comment: 411.2 Performed By: #### L 300.3900, L100.0500, L500.2500 ####[facility] [address] [place], [address] Prothrombin Time w/INRon INR Coag (PPP) [Relative time] 2.5 {INR} Normal [facility] Comment on above: Order Comment: 411.2 Performed By: #### L 300.3900, L100.0500, L500.2500 ####[facility] [address] [place], [address] PT Coag (PPP) [Time] 26.6 s High 11.7-14.9 [facility] Comment on above: Order Comment: 411.2 Performed By: #### L 300.3900, L100.0500, L500.2500 ####[facility] [address] [place], [address] Prothrombin Time w/INRon INR Coag (PPP) [Relative time] 2.1 {INR} Normal [facility] Comment on above: Order Comment: 411.2 Performed By: #### L 300.3900 ####[facility] [address] [place], [address] PT Coag (PPP) [Time] 23.5 s High 11.7-14.9 [facility] Comment on above: Order Comment: 411.2 Performed By: #### L 300.3900 ####[facility] [address] [place], [address] Prothrombin Time w/INRon INR Coag (PPP) [Relative time] 3.2 {INR} Normal [facility] Comment on above: Order Comment: 411-2 Performed By: #### L 300.3900 ####[facility] [address] [place], [address] PT Coag (PPP) [Time] 32.6 s High 11.7-14.9 [facility] Comment on above: Order Comment: 411-2 Performed By: #### L 300.3900 ####[facility] [address] [place], [address] Prothrombin Time w/INRon 08- 12-2024 INR Coag (PPP) [Relative time] 2.6 {INR} Normal [facility] Comment on above: Order Comment: 411-2 Performed By: #### L 300.3900 ####[facility] [address] [place], [address] PT Coag (PPP) [Time] 27.4 s High 11.7-14.9 [facility] Comment on above: Order Comment: 411-2 Performed By: #### L 300.3900 ####[facility] [address] [place], [address] Basic Metabolic Profile (BMP )on 12-04-2023 BUN/CRE 26.8 RATIO High 10-20 [facility] Comment on above: Order Comment: 411.2 Performed By: #### L 100.0500, L500.2500 ####[facility] [address] [place], [address] CA,Total 8.8 mg/dL Normal 8.5-10.1 [facility] Comment on above: Order Comment: 411.2 Performed By: #### L 100.0500, L500.2500 ####[facility] [address] [place], [address] Chloride [Moles/Vol] 105 mmol/L Normal 98-107 [facility] Comment on above: Order Comment: 411.2 Performed By: #### L 100.0500, L500.2500 ####[facility] [address] [place], [address] CO2 [Moles/Vol] 27.0 mmol/L Normal 21.0-32.0 [facility] Comment on above: Order Comment: 411.2 Performed By: #### L 100.0500, L500.2500 ####[facility] [address] [place], [address] Creatinine [Mass/Vol] 0.90 mg/dL Normal 0.70-1.30 [facility] Comment on above: Order Comment: 411.2 Result Comment: The validity of the calculated GFR GFRAA in patients over70 years has not been determined. Clinical correlation isessential. Performed By: #### L 100.0500, L500.2500 ####[facility] [address] [place], [address] EST GFR - AA 107 mL/min Normal >60 [facility] Comment on above: Order Comment: 411.2 Result Comment: Afri can [place] GFR Calc Performed By: #### L 100.0500, L500.2500 ####[facility] [address] [place], [address] GAP 7 Normal 5-15 [facility] Comment on above: Order Comment: 411.2 Performed By: #### L 100.0500, L500.2500 ####[facility] [address] [place], [address] GFR/1.73 sq M.predicted among non-blacks MDRD (S/P/Bld) [Vol rate/Area] 89 mL/min/{1.73_m2} Normal >60 [facility] Comment on above: Order Comment: 411.2 Result Comment: Non- GFR Calc Performed By: #### L 100.0500, L500.2500 ####[facility] [address] [place], [address] Glucose [Mass/Vol] 92 mg/dL Normal 74-[address] [facility] Comment on above: Order Comment: 411.2 Performed By: #### L 100.0500, L500.2500 ####[facility] [address] [place], [address] Potassium [Moles/Vol] 4.0 mmol/L Normal 3.5-5.1 [facility] Comment on above: Order Comment: 411.2 Performed By: #### L 100.0500, L500.2500 ####[facility] [address] [place], [address] Sodium [Moles/Vol] 139 mmol/L Normal 136-[address] [facility] Comment on above: Order Comment: 411.2 Performed By: #### L 100.0500, L500.2500 ####[facility] [address] [place], [address] Urea nitrogen [Mass/Vol] 24 mg/dL High 7-18 [facility] Comment on above: Order Comment: 411.2 Performed By: #### L 100.0500, L500.2500 ####[facility] [address] [place], [address] CBC-Complete Blood Cnt No Di ffon 12-04-2023 Erythrocyte distribution width (RBC) [Ratio] 14.9 % High 11.6-14.6 [facility] Comment on above: Order Comment: 411.2 Performed By: #### L 100.0500, L500.2500 ####[facility] [address] [place], [address] Hematocrit (Bld) [Volume fraction] 39.3 % Low 40-54 [facility] Comment on above: Order Comment: 411.2 Performed By: #### L 100.0500, L500.2500 ####[facility] [address] [place], [address] Hemoglobin (Bld) [Mass/Vol] 12.6 g/dL Low 13.0-16.5 [facility] Comment on above: Order Comment: 411.2 Performed By: #### L 100.0500, L500.2500 ####[facility] [address] [place], [address] MCH (RBC) [Entitic mass] 27.3 pg Normal 27.0-32.0 [facility] Comment on above: Order Comment: 411.2 Performed By: #### L 100.0500, L500.2500 ####[facility] [address] [place], [address] MCHC (RBC) [Mass/Vol] 32.1 g/dL Normal 32-36 [facility] Comment on above: Order Comment: 411.2 Performed By: #### L 100.0500, L500.2500 ####[facility] [address] [place], [address] MCV (RBC) [Entitic vol] 85.1 fL Normal 80-94 [facility] Comment on above: Order Comment: 411.2 Performed By: #### L 100.0500, L500.2500 ####[facility] [address] [place], [address] Platelet mean volume (Bld) [Entitic vol] 9.8 fL Normal 6.2-12.0 [facility] Comment on above: Order Comment: 411.2 Performed By: #### L 100.0500, L500.2500 ####[facility] [address] [place], [address] Platelets (Bld) [#/Vol] 298 10*3/uL Normal 150-450 [facility] Comment on above: Order Comment: 411.2 Performed By: #### L 100.0500, L500.2500 ####[facility] [address] [place], [address] RBC (Bld) [#/Vol] 4.62 10*6/uL Normal 4.6-6.2 [facility] Comment on above: Order Comment: 411.2 Performed By: #### L 100.0500, L500.2500 ####[facility] [address] [place], [address] RDW SD 46.5 fl High 35.1-43.9 [facility] Comment on above: Order Comment: 411.2 Performed By: #### L 100.0500, L500.2500 ####[facility] [address] [place], [address] WBC (Bld) [#/Vol] 10.3 10*3/uL Normal 4.4-11.0 [facility] Comment on above: Order Comment: 411.2 Performed By: #### L 100.0500, L500.2500 ####[facility] [address] [place], [address] M100.019on 12-03-2023 M100.019 ORDERED ONLY RSV AND COVID, NO FLU SARS-CoV-2 (COVID 19) Negative Normal [facility] Comment on above: Performed By: #### M 100.642, M100.019, L300.3900 ####[facility] [address] [place], [address] M100.642on 12-03-2023 M100.642 Negative Normal [facility] Comment on above: Performed By: #### M 100.642, M100.019, L300.3900 ####[facility] [address] [place], [address] Prothrombin Time w/INRon INR Coag (PPP) [Relative time] 2.2 {INR} Normal [facility] Comment on above: Order Comment: 411.2 Performed By: #### M 100.642, M100.019, L300.3900 ####[facility] [address] [place], [address] PT Coag (PPP) [Time] 24.2 s High 11.7-14.9 [facility] Comment on above: Order Comment: 411.2 Performed By: #### M 100.642, M100.019, L300.3900 ####[facility] [address] [place], [address] Basic Metabolic Profile (BMP )on 11-30-2023 BUN/CRE 18.4 RATIO Normal 10-20 [facility] Comment on above: Order Comment: 411-2 Performed By: #### L 500.2500, L100.0500 ####[facility] [address] [place], [address] CA,Total 8.7 mg/dL Normal 8.5-10.1 [facility] Comment on above: Order Comment: 411-2 Performed By: #### L 500.2500, L100.0500 ####[facility] [address] [place], [address] Chloride [Moles/Vol] 106 mmol/L Normal 98-107 [facility] Comment on above: Order Comment: 411-2 Performed By: #### L 500.2500, L100.0500 ####[facility] [address] [place], [address] CO2 [Moles/Vol] 26.0 mmol/L Normal 21.0-32.0 [facility] Comment on above: Order Comment: 411-2 Performed By: #### L 500.2500, L100.0500 ####[facility] [address] [place], [address] Creatinine [Mass/Vol] 0.87 mg/dL Normal 0.70-1.30 [facility] Comment on above: Order Comment: 411-2 Result Comment: The validity of the calculated GFR GFRAA in patients over70 years has not been determined. Clinical correlation isessential. Performed By: #### L 500.2500, L100.0500 ####[facility] [address] [place], [address] EST GFR - AA 111 mL/min Normal >60 [facility] Comment on above: Order Comment: 411-2 Result Comment: Afri can [place] GFR Calc Performed By: #### L 500.2500, L100.0500 ####[facility] [address] [place], [address] GAP 6 Normal 5-15 [facility] Comment on above: Order Comment: 411-2 Performed By: #### L 500.2500, L100.0500 ####[facility] [address] [place], [address] GFR/1.73 sq M.predicted among non-blacks MDRD (S/P/Bld) [Vol rate/Area] 92 mL/min/{1.73_m2} Normal >60 [facility] Comment on above: Order Comment: 411-2 Result Comment: Non- GFR Calc Performed By: #### L 500.2500, L100.0500 ####[facility] [address] [place], [address] Glucose [Mass/Vol] 96 mg/dL Normal 74-[address] [facility] Comment on above: Order Comment: 411-2 Performed By: #### L 500.2500, L100.0500 ####[facility] [address] [place], [address] Potassium [Moles/Vol] 4.2 mmol/L Normal 3.5-5.1 [facility] Comment on above: Order Comment: 411-2 Performed By: #### L 500.2500, L100.0500 ####[facility] [address] [place], [address] Sodium [Moles/Vol] 138 mmol/L Normal 136-[address] [facility] Comment on above: Order Comment: 411-2 Performed By: #### L 500.2500, L100.0500 ####[facility] [address] [place], [address] Urea nitrogen [Mass/Vol] 16 mg/dL Normal 7-18 [facility] Comment on above: Order Comment: 411-2 Performed By: #### L 500.2500, L100.0500 ####[facility] [address] [place], [address] CBC-Complete Blood Cnt No Di ffon 11-30-2023 Erythrocyte distribution width (RBC) [Ratio] 15.2 % High 11.6-14.6 [facility] Comment on above: Performed By: #### L 500.2500, L100.0500 ####[facility] [address] [place], [address] Hematocrit (Bld) [Volume fraction] 39.5 % Low 40-54 [facility] Comment on above: Performed By: #### L 500.2500, L100.0500 ####[facility] [address] [place], [address] Hemoglobin (Bld) [Mass/Vol] 12.3 g/dL Low 13.0-16.5 [facility] Comment on above: Performed By: #### L 500.2500, L100.0500 ####[facility] [address] [place], [address] MCH (RBC) [Entitic mass] 27.0 pg Normal 27.0-32.0 [facility] Comment on above: Performed By: #### L 500.2500, L100.0500 ####[facility] [address] [place], [address] MCHC (RBC) [Mass/Vol] 31.1 g/dL Low 32-36 [facility] Comment on above: Performed By: #### L 500.2500, L100.0500 ####[facility] [address] [place], [address] MCV (RBC) [Entitic vol] 86.6 fL Normal 80-94 [facility] Comment on above: Performed By: #### L 500.2500, L100.0500 ####[facility] [address] [place], [address] Platelet mean volume (Bld) [Entitic vol] 10.3 fL Normal 6.2-12.0 [facility] Comment on above: Performed By: #### L 500.2500, L100.0500 ####[facility] [address] [place], [address] Platelets (Bld) [#/Vol] 301 10*3/uL Normal 150-450 [facility] Comment on above: Performed By: #### L 500.2500, L100.0500 ####[facility] [address] [place], [address] RBC (Bld) [#/Vol] 4.56 10*6/uL Low 4.6-6.2 [facility] Comment on above: Performed By: #### L 500.2500, L100.0500 ####[facility] [address] [place], [address] RDW SD 48.2 fl High 35.1-43.9 [facility] Comment on above: Performed By: #### L 500.2500, L100.0500 ####[facility] [address] [place], [address] WBC (Bld) [#/Vol] 13.8 10*3/uL High 4.4-11.0 [facility] Comment on above: Performed By: #### L 500.2500, L100.0500 ####[facility] [address] [place], [address] Basic Metabolic Profile (BMP )on 11-27-2023 BUN/CRE 21.2 RATIO High 10-20 [facility] Comment on above: Order Comment: 411.2 Performed By: #### L 500.2500, L100.0500 ####[facility] [address] [place], [address] CA,Total 8.9 mg/dL Normal 8.5-10.1 [facility] Comment on above: Order Comment: 411.2 Performed By: #### L 500.2500, L100.0500 ####[facility] [address] [place], [address] Chloride [Moles/Vol] 105 mmol/L Normal 98-107 [facility] Comment on above: Order Comment: 411.2 Performed By: #### L 500.2500, L100.0500 ####[facility] [address] [place], [address] CO2 [Moles/Vol] 30.0 mmol/L Normal 21.0-32.0 [facility] Comment on above: Order Comment: 411.2 Performed By: #### L 500.2500, L100.0500 ####[facility] [address] [place], [address] Creatinine [Mass/Vol] 0.85 mg/dL Normal 0.70-1.30 [facility] Comment on above: Order Comment: 411.2 Result Comment: The validity of the calculated GFR GFRAA in patients over70 years has not been determined. Clinical correlation isessential. Performed By: #### L 500.2500, L100.0500 ####[facility] [address] [place], [address] EST GFR - AA 114 mL/min Normal >60 [facility] Comment on above: Order Comment: 411.2 Result Comment: Afri can [place] GFR Calc Performed By: #### L 500.2500, L100.0500 ####[facility] [address] [place], [address] GAP 5 Normal 5-15 [facility] Comment on above: Order Comment: 411.2 Performed By: #### L 500.2500, L100.0500 ####[facility] [address] [place], [address] GFR/1.73 sq M.predicted among non-blacks MDRD (S/P/Bld) [Vol rate/Area] 94 mL/min/{1.73_m2} Normal >60 [facility] Comment on above: Order Comment: 411.2 Result Comment: Non- GFR Calc Performed By: #### L 500.2500, L100.0500 ####[facility] [address] [place], [address] Glucose [Mass/Vol] 91 mg/dL Normal 74-[address] [facility] Comment on above: Order Comment: 411.2 Performed By: #### L 500.2500, L100.0500 ####[facility] [address] [place], [address] Potassium [Moles/Vol] 4.3 mmol/L Normal 3.5-5.1 [facility] Comment on above: Order Comment: 411.2 Performed By: #### L 500.2500, L100.0500 ####[facility] [address] [place], [address] Sodium [Moles/Vol] 140 mmol/L Normal 136-[address] [facility] Comment on above: Order Comment: 411.2 Performed By: #### L 500.2500, L100.0500 ####[facility] [address] [place], [address] Urea nitrogen [Mass/Vol] 18 mg/dL Normal 7-18 [facility] Comment on above: Order Comment: 411.2 Performed By: #### L 500.2500, L100.0500 ####[facility] [address] [place], [address] CBC-Complete Blood Cnt No Di ffon 11-27-2023 Erythrocyte distribution width (RBC) [Ratio] 15.0 % High 11.6-14.6 [facility] Comment on above: Order Comment: 411.2 Performed By: #### L 500.2500, L100.0500 ####[facility] [address] [place], [address] Hematocrit (Bld) [Volume fraction] 42.7 % Normal 40-54 [facility] Comment on above: Order Comment: 411.2 Performed By: #### L 500.2500, L100.0500 ####[facility] [address] [place], [address] Hemoglobin (Bld) [Mass/Vol] 13.0 g/dL Normal 13.0-16.5 [facility] Comment on above: Order Comment: 411.2 Performed By: #### L 500.2500, L100.0500 ####[facility] [address] [place], [address] MCH (RBC) [Entitic mass] 26.9 pg Low 27.0-32.0 [facility] Comment on above: Order Comment: 411.2 Performed By: #### L 500.2500, L100.0500 ####[facility] [address] [place], [address] MCHC (RBC) [Mass/Vol] 30.4 g/dL Low 32-36 [facility] Comment on above: Order Comment: 411.2 Performed By: #### L 500.2500, L100.0500 ####[facility] [address] [place], [address] MCV (RBC) [Entitic vol] 88.4 fL Normal 80-94 [facility] Comment on above: Order Comment: 411.2 Performed By: #### L 500.2500, L100.0500 ####[facility] [address] [place], [address] Platelet mean volume (Bld) [Entitic vol] 10.2 fL Normal 6.2-12.0 [facility] Comment on above: Order Comment: 411.2 Performed By: #### L 500.2500, L100.0500 ####[facility] [address] [place], [address] Platelets (Bld) [#/Vol] 328 10*3/uL Normal 150-450 [facility] Comment on above: Order Comment: 411.2 Performed By: #### L 500.2500, L100.0500 ####[facility] [address] [place], [address] RBC (Bld) [#/Vol] 4.83 10*6/uL Normal 4.6-6.2 [facility] Comment on above: Order Comment: 411.2 Performed By: #### L 500.2500, L100.0500 ####[facility] [address] [place], [address] RDW SD 48.8 fl High 35.1-43.9 [facility] Comment on above: Order Comment: 411.2 Performed By: #### L 500.2500, L100.0500 ####[facility] [address] [place], [address] WBC (Bld) [#/Vol] 12.6 10*3/uL High 4.4-11.0 [facility] Comment on above: Order Comment: 411.2 Performed By: #### L 500.2500, L100.0500 ####[facility] [address] [place], [address] Prothrombin Time w/INRon INR Coag (PPP) [Relative time] 1.7 {INR} Normal [facility] Comment on above: Order Comment: 411-2 Performed By: #### L 300.3900 ####[facility] [address] [place], [address] PT Coag (PPP) [Time] 19.5 s High 11.7-14.9 [facility] Comment on above: Order Comment: 411-2 Performed By: #### L 300.3900 ####[facility] [address] [place], [address] Office Visiton 09-13-2023 Follow-up visit [id number] Tamie Sifuentes 1950 M Date Provider Department Center 09/13/2023 [id number] BUCK 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 Normal [facility] CT ABDOMEN PELVIS WO IV CONT [facility] 09-07-2023 CT ABDOMEN PELVIS WO IV CONTRAST Patient Name[facility] ANDREW [facility] 1950 [id number] Exam Date/Time: 09/06/2023 18:14 Procedure: CT ABDOMEN [...] a kidney stone; pt has a hernia [facility] 08-29-2023 36 Lm on daughters vm t o advise them to call the number for the event services manager to get clarification, and to call back with further questions [facility] 08-27-2023 36 Yes, they will need to call the number given to them. Normal [facility] 36 Please advise [facility] 36on 08-21-2023 36 Name of caller: Zion holt Contact phone number: [phone] Relationship to Patient: patient Provider: MD Quinn Practice: [facility] Urology Chief Complaint/Reason for Call: Shanthi called [...] to reach out to call Maury Cedeño Black Top Raker at [facility] [phone] to get clarifications. CAC did reach back out to [facility] and advised and provider Maury's #. Please advise Best time of day caller can be reached: Any Patient advised that office/PCP has 24-48 business hours to return their call: N/A [facility] Laboratory - CoagulationOrde red By: Carlos Cavazos on 08-21-2023 INR Coag (Bld) [Relative time] 2.7 {INR} [facility] PT Coag (PPP) [Time] 28.9 s 11.7-14.9 [facility] Office Visiton 08-13-2023 Follow-up visit [id number] Tamie Sifuentes cheng Gonzalez 1950 M Pasha Provider Department Center 08/13/2023 [id number] BUCK 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 Left flank pain CT abdomen pelvis wo IV contrast 2. Calculus of ureter Basic metabolic panel CT ab (more content not included)... Normal [facility] No Panel InformationOrdered By: Carlos Cavazos on 08-03-2023 Levetiracetam (Keppra) Level 32.4 ug/mL 10.0-40.0 [facility] Comment on above: Performed at: - [address] [id number] Director: Alpesh Vázquez MD, Phone: [phone] Basophil percentageOrdered B y: Carlos Cavazos on 07-20-2023 Chloride [Moles/Vol] 106 mmol/L 98-107 [facility] Glucose [Mass/Vol] 98 mg/dL 74-[address] [facility] Hemoglobin (Bld) [Mass/Vol] 12.5 g/dL 13.0-16.5 [facility] Potassium [Moles/Vol] 4.3 mmol/L 3.5-5.1 [facility] Sodium [Moles/Vol] 135 mmol/L 136-[address] [facility] WBC (Bld) [#/Vol] 13.0 10*3/uL 4.4-11.0 [facility] Determination of erythrocyte mean corpuscular volume (MCV)Ordered By: Carlos Cavazos on 07-20-2023 MCV (RBC) [Entitic vol] 86.2 fL 80-94 [facility] Erythrocyte distribution wid th ratioOrdered By: Carlos Cavazos on 07-20-2023 Erythrocyte distribution width (RBC) [Ratio] 15.3 % 11.6-14.6 [facility] Erythrocyte distribution wid th standard deviationOrdered By: Carlos Cavazos on 07-20-2023 Erythrocyte distribution width (RBC) [Entitic vol] 48.1 fL 35.1-43.9 [facility] Hematocrit Auto (Bld) [Volum e fraction]Ordered By: Carlos Cavazos on 07-20-2023 Hematocrit (Bld) [Volume fraction] 39.9 % 40-54 [facility] Laboratory - Chemistry and C hemistry - challengeOrdered By: Carlos Cavazos on 07-20-2023 CO2 [Moles/Vol] 24.0 mmol/L 21.0-32.0 [facility] Urea nitrogen/Creatinine [Mass ratio] 24.6 mg/mg 10-20 [facility] Laboratory - Hematology and Cell countsOrdered By: Carlos Cavazos on 07-20-2023 MCH (RBC) [Entitic mass] 27.0 pg 27.0-32.0 [facility] MCHC (RBC) [Mass/Vol] 31.3 g/dL 32-36 [facility] Platelet mean volume (Bld) [Entitic vol] 10.7 fL 6.2-12.0 [facility] Platelets (Bld) [#/Vol] 260 10*3/uL 150-450 [facility] No Panel InformationOrdered By: Carlos Cavazos on 07-20-2023 Estimated GFR (MDRD) Amer 114 mL/min >60 [facility] Comment on above: GFR Calc Estimated GFR (MDRD) Non-Af Amer 94 mL/min >60 [facility] Comment on above: Non- GFR Calc RBC Auto (Bld) [#/Vol]Ordere d By: Carlos Cavazos on 07-20-2023 RBC (Bld) [#/Vol] 4.63 10*6/uL 4.6-6.2 [facility] Serum or plasma calcium oral urement (mass/volume)Ordered By: Carlos Cavazos on 07-20-2023 Calcium [Mass/Vol] 8.6 mg/dL 8.5-10.[address] [facility] Serum or plasma creatinine m easurement (mass/volume)Ordered By: Carlos Cavazos on 07-20-2023 Creatinine [Mass/Vol] 0.85 mg/dL 0.70-1.30 [facility] Comment on above: The validity of the calculated GFR & GFRAA in patients over 70 years has not been determined. Clinical correlation is essential. Serum or plasma urea nitroge n measurement (mass/volume)Ordered By: Carlos Cavazos on 07-20-2023 Urea nitrogen [Mass/Vol] 21 mg/dL 7-18 [facility] Thin prep Papanicolaou smear with manual screeningOrdered By: Carlos Cavazos on 07-20-2023 Thin prep Papanicolaou smear with manual screening 5 5-15 [facility] Basophil percentageOrdered B y: Carlos Cavazos on 07-18-2023 Chloride [Moles/Vol] 102 mmol/L 98-107 [facility] Glucose [Mass/Vol] 96 mg/dL 74-[address] [facility] Hemoglobin (Bld) [Mass/Vol] 12.3 g/dL 13.0-16.5 [facility] Potassium [Moles/Vol] 4.2 mmol/L 3.5-5.1 [facility] Sodium [Moles/Vol] 136 mmol/L 136-[address] [facility] WBC (Bld) [#/Vol] 14.7 10*3/uL 4.4-11.0 [facility] Determination of erythrocyte mean corpuscular volume (MCV)Ordered By: Carlos Cavazos on 07-18-2023 MCV (RBC) [Entitic vol] 85.4 fL 80-94 [facility] Erythrocyte distribution wid th ratioOrdered By: Carlos Cavazos on 07-18-2023 Erythrocyte distribution width (RBC) [Ratio] 15.1 % 11.6-14.6 [facility] Erythrocyte distribution wid th standard deviationOrdered By: Carlos Cavazos on 07-18-2023 Erythrocyte distribution width (RBC) [Entitic vol] 47.3 fL 35.1-43.9 [facility] Hematocrit Auto (Bld) [Volum e fraction]Ordered By: Carlos Cavazos on 07-18-2023 Hematocrit (Bld) [Volume fraction] 39.3 % 40-54 [facility] Laboratory - Chemistry and C hemistry - challengeOrdered By: Carlos Cavazos on 07-18-2023 CO2 [Moles/Vol] 27.0 mmol/L 21.0-32.0 [facility] Urea nitrogen/Creatinine [Mass ratio] 24.4 mg/mg 10-20 [facility] Laboratory - Hematology and Cell countsOrdered By: Carlos Cavazos on 07-18-2023 MCH (RBC) [Entitic mass] 26.7 pg 27.0-32.0 [facility] MCHC (RBC) [Mass/Vol] 31.3 g/dL 32-36 [facility] Platelet mean volume (Bld) [Entitic vol] 10.3 fL 6.2-12.0 [facility] Platelets (Bld) [#/Vol] 288 10*3/uL 150-450 [facility] No Panel InformationOrdered By: Carlos Cavazos on 07-18-2023 Estimated GFR (MDRD) Amer 113 mL/min >60 [facility] Comment on above: GFR Calc Estimated GFR (MDRD) Non-Af Amer 93 mL/min >60 [facility] Comment on above: Non- GFR Calc RBC Auto (Bld) [#/Vol]Ordere d By: Carlos Cavazos on 07-18-2023 RBC (Bld) [#/Vol] 4.60 10*6/uL 4.6-6.2 [facility] Serum or plasma calcium oral urement (mass/volume)Ordered By: Carlos Cavazos on 07-18-2023 Calcium [Mass/Vol] 8.9 mg/dL 8.5-10.[address] [facility] Serum or plasma creatinine m easurement (mass/volume)Ordered By: Carlos Cavazos on 07-18-2023 Creatinine [Mass/Vol] 0.86 mg/dL 0.70-1.30 [facility] Comment on above: The validity of the calculated GFR & GFRAA in patients over 70 years has not been determined. Clinical correlation is essential. Serum or plasma urea nitroge n measurement (mass/volume)Ordered By: Carlos Cavazos on 07-18-2023 Urea nitrogen [Mass/Vol] 21 mg/dL 7-18 [facility] Thin prep Papanicolaou smear with manual screeningOrdered By: Carlos Cavazos on 07-18-2023 Thin prep Papanicolaou smear with manual screening 7 5-15 [facility] Basophil percentageOrdered B y: Carlos Cavazos on 07-17-2023 Basophil percentage 0-5 SEEN /hpf 0-5 [facility] Bilirubin Test strip Ql (U)O rdered By: Carlos Cavazos on 07-17-2023 Bilirubin Ql (U) Negative Negative [facility] Calcium oxalate crystals det ection in urine sediment by light microscopyOrdered By: Carlos Cavazos on 07-17-2023 Calcium oxalate crystals LM Ql (Urine sed) 1+ /hpf [facility] Culture, urineOrdered By: Sharif Crouch on 07-17-2023 Bacteria identified Cx Nom (U) Positive [facility] Ketones Test strip Ql (U)Ord ered By: Carlos Cavazos on 07-17-2023 Ketones Ql (U) Negative Negative [facility] Mucus LM Ql (Urine sed)Order ed By: Carlos Cavazos on 07-17-2023 Mucus Ql (Urine sed) 0 SEEN /hpf [facility] Nitrite Test strip Ql (U)Ord ered By: Carlos Cavazos on 07-17-2023 Nitrite Ql (U) Negative Negative [facility] No Panel InformationOrdered By: Carlos Cavazos on 07-17-2023 Urine RBC 0 SEEN /hpf 0-5 [facility] Protein Test strip Ql (U)Ord ered By: Carlos Cavazos on 07-17-2023 Protein Ql (U) Negative Negative [facility] Squamous epithelial cells de tection in urine sediment by light microscopyOrdered By: Carlos Cavazos on 07-17-2023 Epithelial cells.squamous LM Ql (Urine sed) 0-5 SEEN /hpf 0-5 [facility] Urine blood detectionOrdered By: Carlos Cavazos on 07-17-2023 RBC Ql (U) Negative Negative [facility] Urine clarityOrdered By: Ted Cavazos on 07-17-2023 Clarity (U) Clear Clear [facility] Urine color determinationOrd ered By: Carlos Cavazos on 07-17-2023 Color (U) Yellow Yellow [facility] Urine glucose detectionOrder ed By: Carlos Cavazos on 07-17-2023 Glucose Ql (U) Normal mg/dl Normal [facility] Urine leukocyte esterase det ection by dipstickOrdered By: Carlos Cavazos on 07-17-2023 Leukocyte esterase Test strip Ql (U) 25 /ul Negative [facility] Urine pHOrdered By: Carlos flores on 07-17-2023 pH (U) 6.0 [pH] 5.0 - 8.0 [facility] Urine sediment bacteria coun t by microscopy (number/high power field)Ordered By: Carlos Cavazos on 07-17-2023 Bacteria LM.HPF (Urine sed) [#/Area] 0 /[HPF] None Seen [facility] Urine specific gravity measu rementOrdered By: Carlos Cavazos on 07-17-2023 Specific gravity (U) [Rel density] 1.020 1.002-1.030 [facility] Urine urobilinogen measureme ntOrdered By: Carlos Cavazos on 07-17-2023 Urobilinogen Ql (U) Normal mg/dl Normal [facility] Absolute lymphocyte countOrd ered By: Carlos Cavazos on 07-16-2023 Lymphocytes Auto (Unsp spec) [#/Vol] 6.02 10*3/uL 0.83-4.51 [facility] Automated lymphocyte count a s percentage of total leukocytesOrdered By: Carlos Cavazos on 07-16-2023 Lymphocytes/100 WBC Auto (Unsp spec) 49.1 % 19-41 [facility] Basophil percentageOrdered B y: Carlos Cavazos on 07-16-2023 Basophils/100 WBC (Bld) 0.6 % 0-1 [facility] Chloride [Moles/Vol] 105 mmol/L 98-107 [facility] Eosinophils/100 WBC (Bld) 2.0 % 0-5 [facility] Glucose [Mass/Vol] 93 mg/dL 74-[address] [facility] Hemoglobin (Bld) [Mass/Vol] 12.1 g/dL 13.0-16.5 [facility] Monocytes/100 WBC (Bld) 5.3 % 0-10 [facility] Neutrophils (Bld) [#/Vol] 5.2 10*3/uL 2.0-7.7 [facility] Neutrophils/100 WBC (Bld) 42.8 % 47-70 [facility] Potassium [Moles/Vol] 4.3 mmol/L 3.5-5.1 [facility] Sodium [Moles/Vol] 138 mmol/L 136-[address] [facility] WBC (Bld) [#/Vol] 12.3 10*3/uL 4.4-11.0 [facility] Blood manual differential co mment interpretation (narrative result)Ordered By: Carlos Cavazos on 07-16-2023 Manual differential comment Shemar (Bld) [Interp] SCANNED [facility] Determination of erythrocyte mean corpuscular volume (MCV)Ordered By: Carlos Cavazos on 07-16-2023 MCV (RBC) [Entitic vol] 86.8 fL 80-94 [facility] Erythrocyte distribution wid th ratioOrdered By: Carlos Cavazos on 07-16-2023 Erythrocyte distribution width (RBC) [Ratio] 15.3 % 11.6-14.6 [facility] Erythrocyte distribution wid th standard deviationOrdered By: Carlos Cavazos on 07-16-2023 Erythrocyte distribution width (RBC) [Entitic vol] 48.9 fL 35.1-43.9 [facility] Hematocrit Auto (Bld) [Volum e fraction]Ordered By: Carlos Cavazos on 07-16-2023 Hematocrit (Bld) [Volume fraction] 38.7 % 40-54 [facility] Immature granulocytes/100 WB C Auto (Bld)Ordered By: Carlos Cavazos on 07-16-2023 Immature granulocytes/100 WBC (Bld) 0.200 % 0.0-0.9 [facility] Comment on above: IG% - Immature Granu locytes (promyelocytes, myelocytes and metamyelocytes) > 1% indicates that a LEFT SHIFT is Present. Laboratory - Chemistry and C hemistry - challengeOrdered By: Carlos Cavazos on 07-16-2023 CO2 [Moles/Vol] 25.0 mmol/L 21.0-32.0 [facility] Urea nitrogen/Creatinine [Mass ratio] 21.0 mg/mg 10-20 [facility] Laboratory - CoagulationOrde red By: Carlos Cavazos on 07-16-2023 INR Coag (Bld) [Relative time] 2.4 {INR} [facility] PT Coag (PPP) [Time] 25.7 s 11.7-14.9 [facility] Laboratory - Hematology and Cell countsOrdered By: Carlos Cavazos on 07-16-2023 MCH (RBC) [Entitic mass] 27.1 pg 27.0-32.0 [facility] MCHC (RBC) [Mass/Vol] 31.3 g/dL 32-36 [facility] Nucleated RBC/100 WBC (Bld) [Ratio] 0 % 0-5 [facility] Platelet mean volume (Bld) [Entitic vol] 10.5 fL 6.2-12.0 [facility] Platelets (Bld) [#/Vol] 289 10*3/uL 150-450 [facility] No Panel InformationOrdered By: Carlos Cavazos on 07-16-2023 Estimated GFR (MDRD) Amer 106 mL/min >60 [facility] Comment on above: GFR Calc Estimated GFR (MDRD) Non-Af Amer 88 mL/min >60 [facility] Comment on above: Non- GFR Calc Reactive Lymphocytes 1+ [facility] RBC Auto (Bld) [#/Vol]Ordere d By: Carlos Cavazos on 07-16-2023 RBC (Bld) [#/Vol] 4.46 10*6/uL 4.6-6.2 [facility] Serum or plasma calcium oral urement (mass/volume)Ordered By: Carlos Cavazos on 07-16-2023 Calcium [Mass/Vol] 9.0 mg/dL 8.5-10.[address] [facility] Serum or plasma creatinine m easurement (mass/volume)Ordered By: Carlos Cavazos on 07-16-2023 Creatinine [Mass/Vol] 0.90 mg/dL 0.70-1.30 [facility] Comment on above: The validity of the calculated GFR & GFRAA in patients over 70 years has not been determined. Clinical correlation is essential. Serum or plasma urea nitroge n measurement (mass/volume)Ordered By: Carlos Cavazos on 07-16-2023 Urea nitrogen [Mass/Vol] 19 mg/dL 7-18 [facility] Thin prep Papanicolaou smear with manual screeningOrdered By: Carlos Cavazos on 07-16-2023 Thin prep Papanicolaou smear with manual screening 8 5-15 [facility] Absolute lymphocyte countOrd ered By: Carlos Cavazos on 07-13-2023 Lymphocytes Auto (Unsp spec) [#/Vol] 5.44 10*3/uL 0.83-4.51 [facility] Automated lymphocyte count a s percentage of total leukocytesOrdered By: Carlos Cavazos on 07-13-2023 Lymphocytes/100 WBC Auto (Unsp spec) 47.3 % 19-41 [facility] Basophil percentageOrdered B y: Carlos Cavazos on 07-13-2023 Basophils/100 WBC (Bld) 0.4 % 0-1 [facility] Chloride [Moles/Vol] 107 mmol/L 98-107 [facility] Eosinophils/100 WBC (Bld) 1.7 % 0-5 [facility] Glucose [Mass/Vol] 96 mg/dL 74-[address] [facility] Hemoglobin (Bld) [Mass/Vol] 13.5 g/dL 13.0-16.5 [facility] Monocytes/100 WBC (Bld) 4.3 % 0-10 [facility] Neutrophils (Bld) [#/Vol] 5.3 10*3/uL 2.0-7.7 [facility] Neutrophils/100 WBC (Bld) 46.0 % 47-70 [facility] Potassium [Moles/Vol] 4.0 mmol/L 3.5-5.1 [facility] Sodium [Moles/Vol] 139 mmol/L 136-[address] [facility] WBC (Bld) [#/Vol] 11.5 10*3/uL 4.4-11.0 [facility] Determination of erythrocyte mean corpuscular volume (MCV)Ordered By: Carlos Cavazos on 07-13-2023 MCV (RBC) [Entitic vol] 86.1 fL 80-94 [facility] Erythrocyte distribution wid th ratioOrdered By: Carlos Cavazos on 07-13-2023 Erythrocyte distribution width (RBC) [Ratio] 15.2 % 11.6-14.6 [facility] Erythrocyte distribution wid th standard deviationOrdered By: Carlos Cavazos on 07-13-2023 Erythrocyte distribution width (RBC) [Entitic vol] 48.0 fL 35.1-43.9 [facility] Hematocrit Auto (Bld) [Volum e fraction]Ordered By: Carlos Cavazos on 07-13-2023 Hematocrit (Bld) [Volume fraction] 42.2 % 40-54 [facility] Immature granulocytes/100 WB C Auto (Bld)Ordered By: Carlos Cavazos on 07-13-2023 Immature granulocytes/100 WBC (Bld) 0.300 % 0.0-0.9 [facility] Comment on above: IG% - Immature Granu locytes (promyelocytes, myelocytes and metamyelocytes) > 1% indicates that a LEFT SHIFT is Present. Laboratory - Chemistry and C hemistry - challengeOrdered By: Carlos Cavazos on 07-13-2023 CO2 [Moles/Vol] 26.0 mmol/L 21.0-32.0 [facility] Urea nitrogen/Creatinine [Mass ratio] 21.8 mg/mg 10-20 [facility] Laboratory - Hematology and Cell countsOrdered By: Carlos Cavazos on 07-13-2023 MCH (RBC) [Entitic mass] 27.6 pg 27.0-32.0 [facility] MCHC (RBC) [Mass/Vol] 32.0 g/dL 32-36 [facility] Nucleated RBC/100 WBC (Bld) [Ratio] 0 % 0-5 [facility] Platelet mean volume (Bld) [Entitic vol] 10.1 fL 6.2-12.0 [facility] Platelets (Bld) [#/Vol] 279 10*3/uL 150-450 [facility] No Panel InformationOrdered By: Carlos Cavazos on 07-13-2023 Estimated GFR (MDRD) Amer 118 mL/min >60 [facility] Comment on above: GFR Calc Estimated GFR (MDRD) Non-Af Amer 98 mL/min >60 [facility] Comment on above: Non- GFR Calc Levetiracetam (Keppra) Level 25.5 ug/mL 10.0-40.0 [facility] Comment on above: Performed at: - [address] [id number] Director: Alpesh Vázquez MD, Phone: [phone] RBC Auto (Bld) [#/Vol]Ordere d By: Carlos Cavazos on 07-13-2023 RBC (Bld) [#/Vol] 4.90 10*6/uL 4.6-6.2 [facility] Serum or plasma calcium oral urement (mass/volume)Ordered By: Carlos Cavazos on 07-13-2023 Calcium [Mass/Vol] 9.1 mg/dL 8.5-10.[address] [facility] Serum or plasma creatinine m easurement (mass/volume)Ordered By: Carlos Cavazos on 07-13-2023 Creatinine [Mass/Vol] 0.82 mg/dL 0.70-1.30 [facility] Comment on above: The validity of the calculated GFR & GFRAA in patients over 70 years has not been determined. Clinical correlation is essential. Serum or plasma urea nitroge n measurement (mass/volume)Ordered By: Carlos Cavazos on 07-13-2023 Urea nitrogen [Mass/Vol] 18 mg/dL 7-18 [facility] Thin prep Papanicolaou smear with manual screeningOrdered By: Carlos Cavazos on 07-13-2023 Thin prep Papanicolaou smear with manual screening 6 5-15 [facility] No Panel InformationOrdered By: Carlos Cavazos on 07-12-2023 Valproic Acid (Depakene) Level < 3 ug/mL 50-100 [facility] Laboratory - CoagulationOrde red By: Carlos Cavazos on 07-05-2023 INR Coag (Bld) [Relative time] 2.4 {INR} [facility] PT Coag (PPP) [Time] 26.3 s 11.7-14.9 [facility] Laboratory - CoagulationOrde red By: Carlos Cavazos on 07-02-2023 INR Coag (Bld) [Relative time] 1.5 {INR} [facility] PT Coag (PPP) [Time] 18.5 s 11.7-14.9 [facility] Laboratory - CoagulationOrde red By: Carlos Cavazos on 06-28-2023 INR Coag (Bld) [Relative time] 1.7 {INR} [facility] PT Coag (PPP) [Time] 20.5 s 11.7-14.9 [facility] 36on 06-25-2023 36 [facility] christiano called in stating appt scheduled 07/10/23 [place] has to be made further out, pt being transported by cot. Changed appt to 08/13/23 per [facility] only avail time for transport, first avail with DR Buck at 10:00 AM. [facility] Laboratory - CoagulationOrde red By: Carlos Cavazos on 06-25-2023 INR Coag (Bld) [Relative time] 3.8 {INR} [facility] PT Coag (PPP) [Time] 38.2 s 11.7-14.9 [facility] Laboratory - CoagulationOrde red By: Carlos Cavazos on 06-21-2023 INR Coag (Bld) [Relative time] 3.2 {INR} [facility] PT Coag (PPP) [Time] 32.9 s 11.7-14.9 [facility] No Panel InformationOrdered By: Carlos Cavazos on 06-13-2023 Valproic Acid (Depakene) Level < 3 ug/mL 50-100 [facility] Laboratory - CoagulationOrde red By: Carlos Cavazos on 06-06-2023 PT Coag (PPP) [Time] 30.5 s 11.7-14.9 [facility] Platelet poor plasma interna tional normalized ratio (INR)Ordered By: Carlos Cavazos on 06-06-2023 INR Coag (PPP) [Relative time] 2.9 {INR} [facility] International normalized rat io (INR) calculationOrdered By: Carlos Cavazos on 05-23-2023 INR Coag (PPP) [Relative time] 2.6 {INR} [facility] Laboratory - CoagulationOrde red By: Carlos Cavazos on 05-23-2023 PT Coag (PPP) [Time] 27.7 s 11.7-14.9 [facility] Laboratory - CoagulationOrde red By: Carlos Cavazos on 05-09-2023 PT Coag (PPP) [Time] 24.1 s 11.7-14.9 [facility] Whole blood international no rmalized ratio (INR)Ordered By: Carlos Cavazos on 05-09-2023 INR Coag (Bld) [Relative time] 2.1 {INR} [facility] Laboratory - CoagulationOrde red By: Carlos Cavazos on 04-23-2023 PT Coag (PPP) [Time] 26.4 s 11.7-14.9 [facility] Whole blood international no rmalized ratio (INR)Ordered By: Carlos Cavazos on 04-23-2023 INR Coag (Bld) [Relative time] 2.4 {INR} [facility] INR in Blood by Coagulation assayOrdered By: Carlos Cavazos on 04-09-2023 INR Coag (Bld) [Relative time] 2.1 {INR} [facility] Laboratory - CoagulationOrde red By: Carlos Cavazos on 04-09-2023 PT Coag (PPP) [Time] 23.9 s 11.7-14.9 [facility] INR in Blood by Coagulation assayOrdered By: Carlos Cavazos on 04-02-2023 INR Coag (Bld) [Relative time] 2.2 {INR} [facility] Laboratory - CoagulationOrde red By: Carlos Cavazos on 04-02-2023 PT Coag (PPP) [Time] 24.5 s 11.7-14.9 [facility] INR in Blood by Coagulation assayOrdered By: Carlos Cavazos on 03-26-2023 INR Coag (Bld) [Relative time] 1.7 {INR} [facility] Laboratory - CoagulationOrde red By: Carlos Cavazos on 03-26-2023 PT Coag (PPP) [Time] 19.9 s 11.7-14.9 [facility] INR in Blood by Coagulation assayOrdered By: Carlos Cavazos on 03-22-2023 INR Coag (Bld) [Relative time] 1.3 {INR} [facility] Laboratory - CoagulationOrde red By: Carlos Cavazos on 03-22-2023 PT Coag (PPP) [Time] 16.4 s 11.7-14.9 [facility] INR in Blood by Coagulation assayOrdered By: Carlos Cavazos on 03-08-2023 INR Coag (Bld) [Relative time] 2.0 {INR} [facility] Laboratory - CoagulationOrde red By: Carlos Cavazos on 03-08-2023 PT Coag (PPP) [Time] 22.5 s 11.7-14.9 [facility] Laboratory - CoagulationOrde red By: Carlos Cavazos on 02-22-2023 INR Coag (Bld) [Relative time] 2.2 {INR} [facility] Comment on above: Critical Value > 4.0 Whole blood prothrombin time Ordered By: Carlos Cavazos on 02-22-2023 PT Coag (Bld) [Time] 24.0 s 11.7-14.9 [facility] INR in Blood by Coagulation assayOrdered By: Cliff Bruner on 02-15-2023 INR Coag (Bld) [Relative time] 2.0 {INR} [facility] Laboratory - CoagulationOrde red By: Cliff Bruner on 02-15-2023 PT Coag (PPP) [Time] 22.8 s 11.7-14.9 [facility] INR in Blood by Coagulation assayOrdered By: Carlos Cavazos on 02-08-2023 INR Coag (Bld) [Relative time] 2.1 {INR} [facility] Laboratory - CoagulationOrde red By: Carlos Cavazos on 02-08-2023 PT Coag (PPP) [Time] 23.5 s 11.7-14.9 [facility] INR in Blood by Coagulation assayOrdered By: Carlos Cavazos on 01-31-2023 INR Coag (Bld) [Relative time] 2.0 {INR} [facility] Laboratory - CoagulationOrde red By: Carlos Cavazos on 01-31-2023 PT Coag (PPP) [Time] 22.4 s 11.7-14.9 [facility] Laboratory - CoagulationOrde red By: Carlos Cavazos on 01-29-2023 INR Coag (Bld) [Relative time] 1.8 {INR} [facility] Comment on above: Critical Value > 4.0 Whole blood prothrombin time Ordered By: Carlos Cavazos on 01-29-2023 PT Coag (Bld) [Time] 19.9 s 11.7-14.9 [facility] INR in Blood by Coagulation assayOrdered By: Carlos Cavazos on 01-26-2023 INR Coag (Bld) [Relative time] 1.5 {INR} [facility] Laboratory - CoagulationOrde red By: Carlos Cavazos on 01-26-2023 PT Coag (PPP) [Time] 18.3 s 11.7-14.9 [facility] INR in Blood by Coagulation assayOrdered By: Carlos Cavazos on 01-24-2023 INR Coag (Bld) [Relative time] 1.3 {INR} [facility] Laboratory - CoagulationOrde red By: Carlos Cavazos on 01-24-2023 PT Coag (PPP) [Time] 16.2 s 11.7-14.9 [facility] Basophil percentageOrdered B y: Carlos Cavazos on 01-22-2023 Basophil percentage 0 SEEN /hpf 0-5 [facility] Bilirubin Test strip Ql (U)O rdered By: Carlos Cavazos on 01-22-2023 Bilirubin Ql (U) Negative Negative [facility] Calcium oxalate crystals det ection in urine sediment by light microscopyOrdered By: Carlos Cavazos on 01-22-2023 Calcium oxalate crystals LM Ql (Urine sed) 1+ /hpf [facility] Culture, urineOrdered By: Sharif Crouch on 01-22-2023 Bacteria identified Cx Nom (U) Positive [facility] Ketones Test strip Ql (U)Ord ered By: Carlos Cavazos on 01-22-2023 Ketones Ql (U) Negative Negative [facility] Mucus LM Ql (Urine sed)Order ed By: Carlos Cavazos on 01-22-2023 Mucus Ql (Urine sed) 1+ /hpf [facility] Nitrite Test strip Ql (U)Ord ered By: Carlos Cavazos on 01-22-2023 Nitrite Ql (U) Negative Negative [facility] Protein Test strip Ql (U)Ord ered By: Carlos Cavazos on 01-22-2023 Protein Ql (U) Negative Negative [facility] Squamous epithelial cells de tection in urine sediment by light microscopyOrdered By: Carlos Cavazos on 01-22-2023 Epithelial cells.squamous LM Ql (Urine sed) 0 SEEN /hpf 0-5 [facility] Urine blood detectionOrdered By: Carlos Cavazos on 01-22-2023 RBC Ql (U) Negative Negative [facility] RBC Ql (U) 0 SEEN /hpf 0-5 [facility] Urine clarityOrdered By: Ted Cavazos on 01-22-2023 Clarity (U) Sl. Cloudy Clear [facility] Urine color determinationOrd ered By: Carlos Cavazos on 01-22-2023 Color (U) Yellow Yellow [facility] Urine glucose detectionOrder ed By: Carlos Cavazos on 01-22-2023 Glucose Ql (U) Normal mg/dl Normal [facility] Urine leukocyte esterase det ection by dipstickOrdered By: Carlos Cavazos on 01-22-2023 Leukocyte esterase Test strip Ql (U) Negative Negative [facility] Urine pHOrdered By: Carlos flores on 01-22-2023 pH (U) 5.0 [pH] 5.0 - 8.0 [facility] Urine sediment bacteria coun t by microscopy (number/high power field)Ordered By: Carlos Cavazos on 01-22-2023 Bacteria LM.HPF (Urine sed) [#/Area] 2 /[HPF] None Seen [facility] Urine specific gravity measu rementOrdered By: Carlos Cavazos on 01-22-2023 Specific gravity (U) [Rel density] 1.025 1.002-1.030 [facility] Urobilinogen Auto test strip Ql (U)Ordered By: Carlos Cavazos on 01-22-2023 Urobilinogen Ql (U) Normal mg/dl Normal [facility] INR in Blood by Coagulation assayOrdered By: Carlos Cavazos on 01-10-2023 INR Coag (Bld) [Relative time] 2.0 {INR} [facility] Laboratory - CoagulationOrde red By: Carlos Cavazos on 01-10-2023 PT Coag (PPP) [Time] 22.6 s 11.7-14.9 [facility] INR in Blood by Coagulation assayOrdered By: Carlos Cavazos on 12-27-2022 INR Coag (Bld) [Relative time] 2.1 {INR} [facility] Laboratory - CoagulationOrde red By: Carlos Cavazos on 12-27-2022 PT Coag (PPP) [Time] 24.1 s 11.7-14.9 [facility] INR in Blood by Coagulation assayOrdered By: Carlos Cavazos on 12-21-2022 INR Coag (Bld) [Relative time] 2.4 {INR} [facility] Laboratory - CoagulationOrde red By: Carlos Cavazos on 12-21-2022 PT Coag (PPP) [Time] 26.7 s 11.7-14.9 [facility] Laboratory - CoagulationOrde red By: Carlos Cavazos on 12-14-2022 INR Coag (Bld) [Relative time] 2.3 {INR} [facility] Comment on above: Critical Value > 4.0 Whole blood prothrombin time Ordered By: Carlos Cavazos on 12-14-2022 PT Coag (Bld) [Time] 25.2 s 11.7-14.9 [facility] Laboratory - CoagulationOrde red By: Carlos Cavazos on 12-07-2022 INR Coag (Bld) [Relative time] 2.5 {INR} [facility] Comment on above: Critical Value > 4.0 Whole blood prothrombin time Ordered By: Carlos Cavazos on 12-07-2022 PT Coag (Bld) [Time] 26.9 s 11.7-14.9 [facility] Amorphous sediment detection in urine sediment by light microscopyOrdered By: Carlos Cavazos on 11-24-2022 Amorphous sediment LM Ql (Urine sed) 1+ [facility] Basophil percentageOrdered B y: Carlos Cavazos on 11-24-2022 Basophil percentage 0 SEEN /hpf 0-5 [facility] Bilirubin [Mass/Vol] 0.30 mg/dL 0.20-1.00 [facility] Comment on above: For patients on eltr ombopag therapy, use of Dimension [place] TBIL is not recommended. Chloride [Moles/Vol] 107 mmol/L 98-107 [facility] Glucose [Mass/Vol] 95 mg/dL 74-[address] [facility] Potassium [Moles/Vol] 4.2 mmol/L 3.5-5.1 [facility] Protein [Mass/Vol] 6.9 g/dL 6.4-8.[address] [facility] Sodium [Moles/Vol] 138 mmol/L 136-[address] [facility] WBC (Bld) [#/Vol] 10.4 10*3/uL 4.4-11.0 [facility] Bilirubin Test strip Ql (U)O rdered By: Carlos Cavazos on 11-24-2022 Bilirubin Ql (U) Negative Negative [facility] Blood erythrocytes count (nu mber/volume)Ordered By: Carlos Cavazos on 11-24-2022 RBC (Bld) [#/Vol] 4.44 10*6/uL 4.6-6.2 [facility] Blood hemoglobin measurement (mass/volume)Ordered By: Carlos Cavazos on 11-24-2022 Hemoglobin (Bld) [Mass/Vol] 11.8 g/dL 13.0-16.5 [facility] Blood platelet mean volumeOr dered By: Carlos Cavazos on 11-24-2022 Platelet mean volume (Bld) [Entitic vol] 9.7 fL 6.2-12.0 [facility] Calcium oxalate crystals det ection in urine sediment by light microscopyOrdered By: Carlos Cavazos on 11-24-2022 Calcium oxalate crystals LM Ql (Urine sed) RARE /hpf [facility] Culture, urineOrdered By: Sharif Crouch on 11-24-2022 Bacteria identified Cx Nom (U) Positive [facility] Determination of erythrocyte mean corpuscular volume (MCV)Ordered By: Carlos Cavazos on 11-24-2022 MCV (RBC) [Entitic vol] 84.7 fL 80-94 [facility] Hematocrit Auto (Bld) [Volum e fraction]Ordered By: Carlos Cavazos on 11-24-2022 Hematocrit (Bld) [Volume fraction] 37.6 % 40-54 [facility] Ketones Test strip Ql (U)Ord ered By: Carlos Cavazos on 11-24-2022 Ketones Ql (U) Negative Negative [facility] Laboratory - Chemistry and C hemistry - challengeOrdered By: Carlos Cavazos on 11-24-2022 ALP [Catalytic activity/Vol] 103 U/L 45-117 [facility] ALT [Catalytic activity/Vol] 14 U/L 16-61 [facility] CO2 [Moles/Vol] 26.0 mmol/L 21.0-32.0 [facility] Globulin (S) [Mass/Vol] 4.0 g/dL 2.2-4.2 [facility] Urea nitrogen/Creatinine [Mass ratio] 24.1 mg/mg 10-20 [facility] Laboratory - Hematology and Cell countsOrdered By: Carlos Cavazos on 11-24-2022 Erythrocyte distribution width (RBC) [Entitic vol] 49.4 fL 35.1-43.9 [facility] Erythrocyte distribution width (RBC) [Ratio] 16.0 % 11.6-14.6 [facility] MCH (RBC) [Entitic mass] 26.6 pg 27.0-32.0 [facility] MCHC Auto (RBC) [Mass/Vol]Or dered By: Carlos Cavazos on 11-24-2022 MCHC (RBC) [Mass/Vol] 31.4 g/dL 32-36 [facility] Mucus LM Ql (Urine sed)Order ed By: Carlos Cavazos on 11-24-2022 Mucus Ql (Urine sed) 0 SEEN /hpf [facility] Nitrite Test strip Ql (U)Ord ered By: Carlos Cavazos on 11-24-2022 Nitrite Ql (U) Negative Negative [facility] No Panel InformationOrdered By: Carlos Cavazos on 11-24-2022 Estimated GFR (MDRD) Amer 118 mL/min >60 [facility] Comment on above: GFR Calc Estimated GFR (MDRD) Non-Af Amer 97 mL/min >60 [facility] Comment on above: Non- GFR Calc Platelets bldOrdered By: Pet noe Cavazos on 11-24-2022 Platelets (Bld) [#/Vol] 309 10*3/uL 150-450 [facility] Protein Test strip Ql (U)Ord ered By: Carlos Cavazos on 11-24-2022 Protein Ql (U) Negative Negative [facility] Serum or plasma albumin oral urement (mass/volume)Ordered By: Carlos Cavazos on 11-24-2022 Albumin [Mass/Vol] 2.9 g/dL 3.2-5.[address] [facility] Serum or plasma albumin/glob ulin mass ratioOrdered By: Carlos Cavazos on 11-24-2022 Albumin/Globulin [Mass ratio] 0.7 {ratio} 0.9-2.4 [facility] Serum or plasma calcium oral urement (mass/volume)Ordered By: Carlos Cavazos on 11-24-2022 Calcium [Mass/Vol] 8.7 mg/dL 8.5-10.[address] [facility] Serum or plasma creatinine m easurement (mass/volume)Ordered By: Carlos Cavazos on 11-24-2022 Creatinine [Mass/Vol] 0.83 mg/dL 0.70-1.30 [facility] Comment on above: The validity of the calculated GFR & GFRAA in patients over 70 years has not been determined. Clinical correlation is essential. Serum or plasma urea nitroge n measurement (mass/volume)Ordered By: Carlos Cavazos on 11-24-2022 Urea nitrogen [Mass/Vol] 20 mg/dL 7-18 [facility] Squamous epithelial cells de tection in urine sediment by light microscopyOrdered By: Carlos Cavazos on 11-24-2022 Epithelial cells.squamous LM Ql (Urine sed) 0 SEEN /hpf 0-5 [facility] Thin prep Papanicolaou smear with manual screeningOrdered By: Carlos Cavazos on 11-24-2022 Thin prep Papanicolaou smear with manual screening 10 U/L 15-37 [facility] Thin prep Papanicolaou smear with manual screening 5 5-15 [facility] Urine blood detectionOrdered By: Carlos Cavazos on 11-24-2022 RBC Ql (U) Negative Negative [facility] RBC Ql (U) 0 SEEN /hpf 0-5 [facility] Urine clarityOrdered By: Ted Cavazos on 11-24-2022 Clarity (U) Clear Clear [facility] Urine color determinationOrd ered By: Carlos Cavazos on 11-24-2022 Color (U) Yellow Yellow [facility] Urine glucose detectionOrder ed By: Carlos Cavazos on 11-24-2022 Glucose Ql (U) Normal mg/dl Normal [facility] Urine leukocyte esterase det ection by dipstickOrdered By: Carlos Cavazos on 11-24-2022 Leukocyte esterase Test strip Ql (U) Negative Negative [facility] Urine pHOrdered By: Carlos flores on 11-24-2022 pH (U) 7.0 [pH] 5.0 - 8.0 [facility] Urine sediment bacteria coun t by microscopy (number/high power field)Ordered By: Carlos Cavazos on 11-24-2022 Bacteria LM.HPF (Urine sed) [#/Area] 0 /[HPF] None Seen [facility] Urine specific gravity measu rementOrdered By: Carlos Cavazos on 11-24-2022 Specific gravity (U) [Rel density] 1.010 1.002-1.030 [facility] Urobilinogen Auto test strip Ql (U)Ordered By: Carlos Cavazos on 11-24-2022 Urobilinogen Ql (U) Normal mg/dl Normal [facility] Laboratory - CoagulationOrde red By: Carlos Cavazos on 11-23-2022 INR Coag (Bld) [Relative time] 2.2 {INR} [facility] Comment on above: Critical Value > 4.0 Whole blood prothrombin time Ordered By: Carlos Cavazos on 11-23-2022 PT Coag (Bld) [Time] 24.5 s 11.7-14.9 [facility] Basophil percentageOrdered B y: Carlos Cavazos on 11-22-2022 Chloride [Moles/Vol] 105 mmol/L 98-107 [facility] Glucose [Mass/Vol] 91 mg/dL 74-[address] [facility] Potassium [Moles/Vol] 4.1 mmol/L 3.5-5.1 [facility] Sodium [Moles/Vol] 138 mmol/L 136-[address] [facility] WBC (Bld) [#/Vol] 12.0 10*3/uL 4.4-11.0 [facility] Blood erythrocytes count (nu mber/volume)Ordered By: Carlos Cavazos on 11-22-2022 RBC (Bld) [#/Vol] 4.65 10*6/uL 4.6-6.2 [facility] Blood hemoglobin measurement (mass/volume)Ordered By: Carlos Cavazos on 11-22-2022 Hemoglobin (Bld) [Mass/Vol] 12.4 g/dL 13.0-16.5 [facility] Blood platelet mean volumeOr dered By: Carlos Cavazos on 11-22-2022 Platelet mean volume (Bld) [Entitic vol] 10.3 fL 6.2-12.0 [facility] Determination of erythrocyte mean corpuscular volume (MCV)Ordered By: Carlos Cavazos on 11-22-2022 MCV (RBC) [Entitic vol] 86.0 fL 80-94 [facility] Hematocrit Auto (Bld) [Volum e fraction]Ordered By: Carlos Cavazos on 11-22-2022 Hematocrit (Bld) [Volume fraction] 40.0 % 40-54 [facility] Laboratory - Chemistry and C hemistry - challengeOrdered By: Carlos Cavazos on 11-22-2022 CO2 [Moles/Vol] 25.0 mmol/L 21.0-32.0 [facility] Urea nitrogen/Creatinine [Mass ratio] 23.6 mg/mg 10- [facility] Laboratory - Hematology and Cell countsOrdered By: Carlos Cavazos on 11-22-2022 Erythrocyte distribution width (RBC) [Entitic vol] 50.0 fL 35.1-43.9 [facility] Erythrocyte distribution width (RBC) [Ratio] 15.9 % 11.6-14.6 [facility] MCH (RBC) [Entitic mass] 26.7 pg 27.0-32.0 [facility] MCHC Auto (RBC) [Mass/Vol]Or dered By: Carlos Cavazos on 11-22-2022 MCHC (RBC) [Mass/Vol] 31.0 g/dL 32- [facility] No Panel InformationOrdered By: Carlos Cavazos on 11-22-2022 Estimated GFR (MDRD) Amer 115 mL/min >60 [facility] Comment on above: GFR Calc Estimated GFR (MDRD) Non-Af Amer 95 mL/min >60 [facility] Comment on above: Non- GFR Calc Platelets bldOrdered By: Ted Cavazos on 11-22-2022 Platelets (Bld) [#/Vol] 320 10*3/uL 150-450 [facility] Serum or plasma calcium oral urement (mass/volume)Ordered By: Carlos Cavazos on 11-22-2022 Calcium [Mass/Vol] 8.7 mg/dL 8.5-10.[address] [facility] Serum or plasma creatinine m easurement (mass/volume)Ordered By: Carlos Cavazos on 11-22-2022 Creatinine [Mass/Vol] 0.85 mg/dL 0.70-1.30 [facility] Comment on above: The validity of the calculated GFR & GFRAA in patients over 70 years has not been determined. Clinical correlation is essential. Serum or plasma urea nitroge n measurement (mass/volume)Ordered By: Carlos Cavazos on 11-22-2022 Urea nitrogen [Mass/Vol] 20 mg/dL 11-21 [facility] Thin prep Papanicolaou smear with manual screeningOrdered By: Carlos Cavazos on 11-22-2022 Thin prep Papanicolaou smear with manual screening 8 5-15 [facility] Laboratory - CoagulationOrde red By: Carlos Cavazos on 11-09-2022 INR Coag (Bld) [Relative time] 2.1 {INR} [facility] Comment on above: Critical Value > 4.0 Whole blood prothrombin time Ordered By: Carlos Cavazos on 11-09-2022 PT Coag (Bld) [Time] 22.6 s 11.7-14.9 [facility] Laboratory - CoagulationOrde red By: Carlos Cavazos on 10-26-2022 INR Coag (Bld) [Relative time] 2.6 {INR} [facility] Comment on above: Critical Value > 4.0 Whole blood prothrombin time Ordered By: Carlos Cavazos on 10-26-2022 PT Coag (Bld) [Time] 28.5 s 11.7-14.9 [facility] Laboratory - CoagulationOrde red By: Carlos Cavazos on 10-12-2022 INR Coag (Bld) [Relative time] 2.4 {INR} [facility] Comment on above: Critical Value > 4.0 Whole blood prothrombin time Ordered By: Carlos Cavazos on 10-12-2022 PT Coag (Bld) [Time] 26.4 s 11.7-14.9 [facility] Laboratory - CoagulationOrde red By: Carlos Cavazos on 10-05-2022 INR Coag (Bld) [Relative time] 2.6 {INR} [facility] Comment on above: Critical Value > 4.0 Whole blood prothrombin time Ordered By: Carlos Cavazos on 10-05-2022 PT Coag (Bld) [Time] 28.0 s 11.7-14.9 [facility] Laboratory - CoagulationOrde red By: Carlos Cavazos on 09-28-2022 INR Coag (Bld) [Relative time] 2.7 {INR} [facility] Comment on above: Critical Value > 4.0 Whole blood prothrombin time Ordered By: Carlos Cavazos on 09-28-2022 PT Coag (Bld) [Time] 28.9 s 11.7-14.9 [facility] Laboratory - CoagulationOrde red By: Carlos Cavazos on 09-14-2022 INR Coag (Bld) [Relative time] 2.5 {INR} [facility] Comment on above: Critical Value > 4.0 Whole blood prothrombin time Ordered By: Carlos Cavazos on 09-14-2022 PT Coag (Bld) [Time] 27.4 s 11.7-14.9 [facility] Laboratory - CoagulationOrde red By: Carlos Cavazos on 08-31-2022 INR Coag (Bld) [Relative time] 2.3 {INR} [facility] Comment on above: Critical Value > 4.0 Whole blood prothrombin time Ordered By: Carlos Cavazos on 08-31-2022 PT Coag (Bld) [Time] 25.4 s 11.7-14.9 [facility] Basophil percentageOrdered B y: Carlos Cavazos on 08-23-2022 Chloride [Moles/Vol] 108 mmol/L 98-107 [facility] Glucose [Mass/Vol] 86 mg/dL 74-[address] [facility] Potassium [Moles/Vol] 4.3 mmol/L 3.5-5.1 [facility] Sodium [Moles/Vol] 136 mmol/L 136-[address] [facility] WBC (Bld) [#/Vol] 10.0 10*3/uL 4.4-11.0 [facility] Blood erythrocytes count (nu mber/volume)Ordered By: Carlos Cavazos on 08-23-2022 RBC (Bld) [#/Vol] 4.77 10*6/uL 4.6-6.2 [facility] Blood hemoglobin measurement (mass/volume)Ordered By: Carlos Cavazos on 08-23-2022 Hemoglobin (Bld) [Mass/Vol] 12.5 g/dL 13.0-16.5 [facility] Blood platelet mean volumeOr dered By: Carlos Cavazos on 08-23-2022 Platelet mean volume (Bld) [Entitic vol] 11.0 fL 6.2-12.0 [facility] Determination of erythrocyte mean corpuscular volume (MCV)Ordered By: Carlos Cavazos on 08-23-2022 MCV (RBC) [Entitic vol] 84.3 fL 80-94 [facility] Hematocrit Auto (Bld) [Volum e fraction]Ordered By: Carlos Cavazos on 08-23-2022 Hematocrit (Bld) [Volume fraction] 40.2 % 40-54 [facility] Laboratory - Chemistry and C hemistry - challengeOrdered By: Carlos Cavazos on 08-23-2022 CO2 [Moles/Vol] 24.0 mmol/L 21.0-32.0 [facility] Urea nitrogen/Creatinine [Mass ratio] 22.8 mg/mg 10-20 [facility] Laboratory - Hematology and Cell countsOrdered By: Carlos Cavazos on 08-23-2022 Erythrocyte distribution width (RBC) [Entitic vol] 49.3 fL 35.1-43.9 [facility] Erythrocyte distribution width (RBC) [Ratio] 16.0 % 11.6-14.6 [facility] MCH (RBC) [Entitic mass] 26.2 pg 27.0-32.0 [facility] MCHC Auto (RBC) [Mass/Vol]Or dered By: Carlos Cavazos on 08-23-2022 MCHC (RBC) [Mass/Vol] 31.1 g/dL 32-36 [facility] No Panel InformationOrdered By: Carlos Cavazos on 08-23-2022 Estimated GFR (MDRD) Amer 134 mL/min >60 [facility] Comment on above: GFR Calc Estimated GFR (MDRD) Non-Af Amer 110 mL/min >60 [facility] Comment on above: Non- GFR Calc Platelets bldOrdered By: Ted Cavazos on 08-23-2022 Platelets (Bld) [#/Vol] 268 10*3/uL 150-450 [facility] Serum or plasma calcium oral urement (mass/volume)Ordered By: Carlos Cavazos on 08-23-2022 Calcium [Mass/Vol] 9.1 mg/dL 8.5-10.[address] [facility] Serum or plasma creatinine m easurement (mass/volume)Ordered By: Carlos Cavazos on 08-23-2022 Creatinine [Mass/Vol] 0.74 mg/dL 0.70-1.30 [facility] Comment on above: The validity of the calculated GFR & GFRAA in patients over 70 years has not been determined. Clinical correlation is essential. Serum or plasma urea nitroge n measurement (mass/volume)Ordered By: Carlos Cavazos on 08-23-2022 Urea nitrogen [Mass/Vol] 17 mg/dL 7-18 [facility] Thin prep Papanicolaou smear with manual screeningOrdered By: Carlos Cavazos on 08-23-2022 Thin prep Papanicolaou smear with manual screening 4 - [facility] Laboratory - CoagulationOrde red By: Carlos Cavazos on 08-17-2022 INR Coag (Bld) [Relative time] 2.8 {INR} [facility] Comment on above: Critical Value > 4.0 Whole blood prothrombin time Ordered By: Carlos Cavazos on 08-17-2022 PT Coag (Bld) [Time] 29.6 s 11.7-14.9 [facility] Laboratory - CoagulationOrde red By: Carlos Cavazos on 08-14-2022 INR Coag (Bld) [Relative time] 3.9 {INR} [facility] Comment on above: Critical Value > 4.0 Whole blood prothrombin time Ordered By: Carlos Cavazos on 08-14-2022 PT Coag (Bld) [Time] 40.6 s 11.7-14.9 [facility] Laboratory - CoagulationOrde red By: Carlos Cavazos on 07-31-2022 INR Coag (Bld) [Relative time] 2.5 {INR} [facility] Comment on above: Critical Value > 4.0 Whole blood prothrombin time Ordered By: Carlos Cavazos on 07-31-2022 PT Coag (Bld) [Time] 26.8 s 11.7-14.9 [facility] INR in Blood by Coagulation assayOrdered By: Carlos Cavazos on 07-24-2022 INR Coag (Bld) [Relative time] 2.3 {INR} [facility] Laboratory - CoagulationOrde red By: Carlos Cavazos on 07-24-2022 PT Coag (PPP) [Time] 24.7 s 11.7-14.9 [facility] Laboratory - CoagulationOrde red By: Carlos Cavazos on 07-20-2022 INR Coag (Bld) [Relative time] 1.9 {INR} [facility] Comment on above: Critical Value > 4.0 Whole blood prothrombin time Ordered By: Carlos Cavazos on 07-20-2022 PT Coag (Bld) [Time] 20.6 s 11.7-14.9 [facility] Laboratory - CoagulationOrde red By: Carlos Cavazos on 07-17-2022 INR Coag (Bld) [Relative time] 1.3 {INR} [facility] Comment on above: Critical Value > 4.0 Whole blood prothrombin time Ordered By: Carlos Cavazos on 07-17-2022 PT Coag (Bld) [Time] 15.9 s 11.7-14.9 [facility] Basophil percentageOrdered B y: Carlos Cavazos on 07-11-2022 Chloride [Moles/Vol] 105 mmol/L 98-107 [facility] Glucose [Mass/Vol] 97 mg/dL 74-[address] [facility] Potassium [Moles/Vol] 3.9 mmol/L 3.5-5.1 [facility] Sodium [Moles/Vol] 140 mmol/L 136-[address] [facility] WBC (Bld) [#/Vol] 9.4 10*3/uL 4.4-11.[address] [facility] Blood erythrocytes count (nu mber/volume)Ordered By: Carlos Cavazos on 07-11-2022 RBC (Bld) [#/Vol] 4.66 10*6/uL 4.6-6.2 [facility] Blood hemoglobin measurement (mass/volume)Ordered By: Carlos Cavazos on 07-11-2022 Hemoglobin (Bld) [Mass/Vol] 12.0 g/dL 13.0-16.5 [facility] Blood platelet mean volumeOr dered By: Carlos Cavazos on 07-11-2022 Platelet mean volume (Bld) [Entitic vol] 10.4 fL 6.2-12.0 [facility] Determination of erythrocyte mean corpuscular volume (MCV)Ordered By: Carlos Cavazos on 07-11-2022 MCV (RBC) [Entitic vol] 83.7 fL 80-94 [facility] Hematocrit Auto (Bld) [Volum e fraction]Ordered By: Carlos Cavazos on 07-11-2022 Hematocrit (Bld) [Volume fraction] 39.0 % 40-54 [facility] Laboratory - Chemistry and C hemistry - challengeOrdered By: Carlos Cavazos on 07-11-2022 CO2 [Moles/Vol] 28.0 mmol/L 21.0-32.0 [facility] Urea nitrogen/Creatinine [Mass ratio] 23.0 mg/mg 10-20 [facility] Laboratory - Hematology and Cell countsOrdered By: Carlos Cavazos on 07-11-2022 Erythrocyte distribution width (RBC) [Entitic vol] 51.0 fL 35.1-43.9 [facility] Erythrocyte distribution width (RBC) [Ratio] 16.8 % 11.6-14.6 [facility] MCH (RBC) [Entitic mass] 25.8 pg 27.0-32.0 [facility] MCHC Auto (RBC) [Mass/Vol]Or dered By: Carlos Cavazos on 07-11-2022 MCHC (RBC) [Mass/Vol] 30.8 g/dL 32-36 [facility] No Panel InformationOrdered By: Carlos Cavazos on 07-11-2022 Estimated GFR (MDRD) Amer 126 mL/min >60 [facility] Comment on above: GFR Calc Estimated GFR (MDRD) Non-Af Amer 104 mL/min >60 [facility] Comment on above: Non- GFR Calc Platelets bldOrdered By: Ted Cavazos on 07-11-2022 Platelets (Bld) [#/Vol] 291 10*3/uL 150-450 [facility] Serum or plasma calcium oral urement (mass/volume)Ordered By: Carlos Cavazos on 07-11-2022 Calcium [Mass/Vol] 9.2 mg/dL 8.5-10.[address] [facility] Serum or plasma creatinine m easurement (mass/volume)Ordered By: Carlos Cavazos on 07-11-2022 Creatinine [Mass/Vol] 0.78 mg/dL 0.70-1.30 [facility] Comment on above: The validity of the calculated GFR & GFRAA in patients over 70 years has not been determined. Clinical correlation is essential. Serum or plasma urea nitroge n measurement (mass/volume)Ordered By: Carlos Cavazos on 07-11-2022 Urea nitrogen [Mass/Vol] 18 mg/dL 7-18 [facility] Thin prep Papanicolaou smear with manual screeningOrdered By: Carlos Cavazos on 07-11-2022 Thin prep Papanicolaou smear with manual screening 7 5-15 [facility] Laboratory - CoagulationOrde red By: Carlos Cavazos on 07-10-2022 INR Coag (Bld) [Relative time] 1.8 {INR} [facility] Comment on above: Critical Value > 4.0 Whole blood prothrombin time Ordered By: Carlos Cavazos on 07-10-2022 PT Coag (Bld) [Time] 21.0 s 11.7-14.9 [facility] Laboratory - CoagulationOrde red By: Carlos Cavazos on 07-03-2022 INR Coag (Bld) [Relative time] 1.9 {INR} [facility] Comment on above: Critical Value > 4.0 Whole blood prothrombin time Ordered By: Carlos Cavazos on 07-03-2022 PT Coag (Bld) [Time] 22.7 s 11.7-14.9 [facility] INR in Blood by Coagulation assayOrdered By: Carlos Cavazos on 06-27-2022 INR Coag (Bld) [Relative time] 2.9 {INR} [facility] Laboratory - CoagulationOrde red By: Carlos Cavazos on 06-27-2022 PT Coag (PPP) [Time] 29.9 s 11.7-14.9 [facility] Laboratory - CoagulationOrde red By: Carlos Cavazos on 06-13-2022 INR Coag (Bld) [Relative time] 2.1 {INR} [facility] Comment on above: Critical Value > 4.0 Whole blood prothrombin time Ordered By: Carlos Cavazos on 06-13-2022 PT Coag (Bld) [Time] 24.4 s 11.7-14.9 [facility] Laboratory - CoagulationOrde red By: Carlos Cavazos on 06-06-2022 INR Coag (Bld) [Relative time] 1.5 {INR} [facility] Comment on above: Critical Value > 4.0 Whole blood prothrombin time Ordered By: Carlos Cavazos on 06-06-2022 PT Coag (Bld) [Time] 18.4 s 11.7-14.9 [facility] Basophil percentageOrdered B y: Carlos Cavazos on 05-30-2022 Chloride [Moles/Vol] 105 mmol/L 98-107 [facility] Glucose [Mass/Vol] 95 mg/dL 74-[address] [facility] Potassium [Moles/Vol] 3.9 mmol/L 3.5-5.1 [facility] Sodium [Moles/Vol] 140 mmol/L 136-[address] [facility] WBC (Bld) [#/Vol] 7.6 10*3/uL 4.4-11.[address] [facility] Blood erythrocytes count (nu mber/volume)Ordered By: Carlos Cavazos on 05-30-2022 RBC (Bld) [#/Vol] 4.79 10*6/uL 4.6-6.2 [facility] Blood hemoglobin measurement (mass/volume)Ordered By: Cralos Cavazos on 05-30-2022 Hemoglobin (Bld) [Mass/Vol] 12.1 g/dL 13.0-16.5 [facility] Blood platelet mean volumeOr dered By: Carlos Cavazos on 05-30-2022 Platelet mean volume (Bld) [Entitic vol] 10.4 fL 6.2-12.0 [facility] Determination of erythrocyte mean corpuscular volume (MCV)Ordered By: Carlos Cavazos on 05-30-2022 MCV (RBC) [Entitic vol] 82.5 fL 80-94 [facility] Hematocrit Auto (Bld) [Volum e fraction]Ordered By: Carlos Cavazos on 05-30-2022 Hematocrit (Bld) [Volume fraction] 39.5 % 40-54 [facility] INR in Blood by Coagulation assayOrdered By: Carlos Cavazos on 05-30-2022 INR Coag (Bld) [Relative time] 1.9 {INR} [facility] Laboratory - Chemistry and C hemistry - challengeOrdered By: Carlos Cavazos on 05-30-2022 CO2 [Moles/Vol] 27.0 mmol/L 21.0-32.0 [facility] Urea nitrogen/Creatinine [Mass ratio] 21.4 mg/mg 10-20 [facility] Laboratory - CoagulationOrde red By: Carlos Cavazos on 05-30-2022 PT Coag (PPP) [Time] 21.6 s 11.7-14.9 [facility] Laboratory - Hematology and Cell countsOrdered By: Carlos Cavazos on 05-30-2022 Erythrocyte distribution width (RBC) [Entitic vol] 48.8 fL 35.1-43.9 [facility] Erythrocyte distribution width (RBC) [Ratio] 16.2 % 11.6-14.6 [facility] MCH (RBC) [Entitic mass] 25.3 pg 27.0-32.0 [facility] MCHC Auto (RBC) [Mass/Vol]Or dered By: Carlos Cavazos on 05-30-2022 MCHC (RBC) [Mass/Vol] 30.6 g/dL 32-36 [facility] No Panel InformationOrdered By: Carlos Cavazos on 05-30-2022 Estimated GFR (MDRD) Amer 133 mL/min >60 [facility] Comment on above: GFR Calc Estimated GFR (MDRD) Non-Af Amer 110 mL/min >60 [facility] Comment on above: Non- GFR Calc Platelets bldOrdered By: Ted Cavazos on 05-30-2022 Platelets (Bld) [#/Vol] 308 10*3/uL 150-450 [facility] Serum or plasma calcium oral urement (mass/volume)Ordered By: Carlos Cavazos on 05-30-2022 Calcium [Mass/Vol] 9.1 mg/dL 8.5-10.[address] [facility] Serum or plasma creatinine m easurement (mass/volume)Ordered By: Carlos Cavazos on 05-30-2022 Creatinine [Mass/Vol] 0.75 mg/dL 0.70-1.30 [facility] Comment on above: The validity of the calculated GFR & GFRAA in patients over 70 years has not been determined. Clinical correlation is essential. Serum or plasma urea nitroge n measurement (mass/volume)Ordered By: Carlos Cavazos on 05-30-2022 Urea nitrogen [Mass/Vol] 16 mg/dL 7-18 [facility] Thin prep Papanicolaou smear with manual screeningOrdered By: Carlos Cavazos on 05-30-2022 Thin prep Papanicolaou smear with manual screening 8 5-15 [facility] Laboratory - CoagulationOrde red By: Carlos Cavazos on 05-16-2022 INR Coag (Bld) [Relative time] 2.6 {INR} [facility] Comment on above: Critical Value > 4.0 Whole blood prothrombin time Ordered By: Carlos Cavazos on 05-16-2022 PT Coag (Bld) [Time] 29.9 s 11.7-14.9 [facility] Laboratory - CoagulationOrde red By: Carlos Cavazos on 05-02-2022 INR Coag (Bld) [Relative time] 2.0 {INR} [facility] Comment on above: Critical Value > 4.0 Whole blood prothrombin time Ordered By: Carlos Cavazos on 05-02-2022 PT Coag (Bld) [Time] 23.2 s 11.7-14.9 [facility] Laboratory - CoagulationOrde red By: Carlos Cavazos on 04-27-2022 INR Coag (Bld) [Relative time] 2.7 {INR} [facility] Comment on above: Critical Value > 4.0 Whole blood prothrombin time Ordered By: Carlos Cavazos on 04-27-2022 PT Coag (Bld) [Time] 31.1 s 11.7-14.9 [facility] Laboratory - CoagulationOrde red By: Carlos Cavazos on 04-26-2022 INR Coag (Bld) [Relative time] 2.8 {INR} [facility] Comment on above: Critical Value > 4.0 Whole blood prothrombin time Ordered By: Carlos Cavazos on 04-26-2022 PT Coag (Bld) [Time] 32.6 s 11.7-14.9 [facility] Laboratory - CoagulationOrde red By: Carlos Cavazos on 04-11-2022 INR Coag (Bld) [Relative time] 2.9 {INR} [facility] Comment on above: Critical Value > 4.0 Whole blood prothrombin time Ordered By: Carlos Cavazos on 04-11-2022 PT Coag (Bld) [Time] 32.8 s 11.7-14.9 [facility] Laboratory - CoagulationOrde red By: Carlos Cavazos on 03-28-2022 INR Coag (Bld) [Relative time] 2.1 {INR} [facility] Comment on above: Critical Value > 4.0 Whole blood prothrombin time Ordered By: Carlos Cavazos on 03-28-2022 PT Coag (Bld) [Time] 24.8 s 11.7-14.9 [facility] Laboratory - CoagulationOrde red By: Carlos Cavazos on 03-23-2022 INR Coag (Bld) [Relative time] 1.7 {INR} [facility] Comment on above: Critical Value > 4.0 Whole blood prothrombin time Ordered By: Carlos Cavazos on 03-23-2022 PT Coag (Bld) [Time] 20.9 s 11.7-14.9 [facility] Laboratory - CoagulationOrde red By: Carlos Cavazos on 03-16-2022 INR Coag (Bld) [Relative time] 1.7 {INR} [facility] Comment on above: Critical Value > 4.0 Whole blood prothrombin time Ordered By: Carlos Cavazos on 03-16-2022 PT Coag (Bld) [Time] 19.9 s 11.7-14.9 [facility] Laboratory - CoagulationOrde red By: Carlos Cavazos on 03-09-2022 INR Coag (Bld) [Relative time] 1.8 {INR} [facility] Comment on above: Critical Value > 4.0 Whole blood prothrombin time Ordered By: Carlos Cavazos on 03-09-2022 PT Coag (Bld) [Time] 21.9 s 11.7-14.9 [facility] Laboratory - CoagulationOrde red By: Carlos Cavazos on 03-06-2022 INR Coag (Bld) [Relative time] 1.7 {INR} [facility] Comment on above: Critical Value > 4.0 Whole blood prothrombin time Ordered By: Carlos Cavazos on 03-06-2022 PT Coag (Bld) [Time] 20.0 s 11.7-14.9 [facility] CBC with Auto Differentialon 10-27-2022 Absolute Baso # 0.2 10*3/uL 0.0 - [...] - 10.7 10*3/uL [facility] Test Performed by [facility], [address] [place] [id number] [facility] CT HEAD WO CONTRASTon 2021 [facility]: [id number] Tomography ACCESSION EXAM DATE/TIME PROCEDURE ORDERING PROVIDER [id number] 03/02/2022 13:[address] Head or Brain w/o 382315 -LANETTE MUNGUIA Contrast CPT code 87772 Reason For Exam (CT Head or Brain [...] tubes (parent active on the left for IMMUNOLOGIST shunting and disconnected on the right). 2. No definite evidence of acute infarction (MRI more sensitive), mass lesion, nor hemorrhage. Report Dictated on --- Final --- Dictated: 03/02/2022 1:35 pm Dictating Physician: MD GUTIERREZ WILLIAM Signed Date and Time: 03/02/2022 1:39 pm Signed by: MD GUTIERREZ WILLIAM Transcribed Date and Time: 03/02/2022 1:35 [facility] RAD Anant Gutierrez MD - 03/02/2022 Patient Name: ANDREW SIFUENTES Computed Tomography ACCESSION EXAM DATE/TIME PROCEDURE ORDERING PROVIDER [id number] 03/02/2022 13:[address] Head or Brain w/o [id number] -LANETTE MUNGUIA Contrast CPT code 02589 Reason For Exam (CT Head or Brain [...] tubes (parent active on the left for IMMUNOLOGIST shunting and disconnected on the right). 2. [...] Brain w/o Contrast Patient Name: ANDREW SIFUENTES [facility]#: [id number] Computed Tomography ACCESSION EXAM DATE/TIME PROCEDURE ORDERING PROVIDER [id number] 03/02/2022 13:[address] Head or Brain w/o [id number] -LANETTE MUNGUIA Contrast CPT code 97081 Reason For Exam (CT Head or Brain [...] tubes (parent active on the left for IMMUNOLOGIST shunting and disconnected on the right). 2. No definite evidence of acute infarction (MRI more sensitive), mass lesion, nor hemorrhage. Report Dictated on Final Dictated: 03/02/2022 1:35 pm Dictating Physician: MD GUTIERREZ WILLIAM Signed Date and Time: 03/02/2022 1:39 pm Signed by: MD GUTIERREZ WILLIAM Transcribed Date and Time: 03/02/2022 1:35 Normal [facility] Comp Metabolic Panelon 03-02 Calcium [Mass/Vol] 9.1 mg/dL Normal 8.4-10.4 [facility] Comment on above: Performed By: #### H CHRISTEL MOTT CMP3 ####[facility] [id number] [place] [address] ALP [Catalytic activity/Vol] 128 U/L High 38-126 [facility] Comment on above: Performed By: #### H TIERA PT, CMP3 ####[address] [place], [place] ALT [Catalytic activity/Vol] 12 U/L Normal 0-49 [facility] Comment on above: Result Comment: The ALT test is performed by an updated assay method. Please note that the reference intervals have been changed and are now sex specific. Performed By: #### H EMDF, PT, CMP3 ####[address] [facility] [facility] [place] Anion gap [Moles/Vol] 7 mmol/L Normal 3-13 [facility] Comment on above: Performed By: #### H EMDF, PT, CMP3 ####[address] [address] [place], [place] AST [Catalytic activity/Vol] 24 U/L Normal 15-46 [facility] Comment on above: Performed By: #### H EMDF, PT, CMP3 ####[address] [address] [place], [place] Bilirubin [Mass/Vol] 0.4 mg/dL Normal 0.2-1.3 [facility] Comment on above: Performed By: #### H EMDF, PT, CMP3 ####[address] [address] [place], [place] CO2 [Moles/Vol] 27 mmol/L Normal 22-30 [facility] Comment on above: Performed By: #### H EMDF, PT, CMP3 ####[address] [place], [place] Glucose [Mass/Vol] 109 mg/dL High 70-100 [facility] Comment on above: Performed By: #### H EMDF, PT, CMP3 ####[address] [place], [place] Protein [Mass/Vol] 8.1 g/dL Normal 6.3-8.2 [facility] Comment on above: Performed By: #### H EMDF, PT, CMP3 ####[address] [place], [place] Urea nitrogen [Mass/Vol] 22 mg/dL High 7-17 [facility] Comment on above: Performed By: #### H CHRISTEL MOTT, CMP3 ####[address] [place], [place] Creatinine [Mass/Vol] 0.63 mg/dL Normal 0.52-1.25 [facility] Comment on above: Performed By: #### H TIERA PT, CMP3 ####[address] [place], [place] eGFR OTHER > 90.0 Normal >60 [facility] Comment on above: Result Comment: KDIG O [...] tubular creatinine secretion. Performed By: #### H TIERA PT, CMP3 ####[address] [place], [place] GFR/1.73 sq M.predicted among blacks MDRD (S/P/Bld) [Vol rate/Area] mL/min/{1.73_m2} Normal >60 [facility] Comment on above: Performed By: #### H TIERA PT, CMP3 ####[address] [place], [place] Albumin [Mass/Vol] 4.1 g/dL Normal 3.5-5.0 [facility] Comment on above: Performed By: #### H TIERA PT, CMP3 ####[address] [place], [place] Chloride [Moles/Vol] 106 mmol/L Normal 98-107 [facility] Comment on above: Performed By: #### H EMDF, PT, CMP3 ####[facility] [place], [place] Potassium [Moles/Vol] 3.7 mmol/L Normal 3.5-5.1 [facility] Comment on above: Performed By: #### H EMDF, PT, CMP3 ####[facility] [place], [place] Sodium [Moles/Vol] 140 mmol/L Normal 135-145 [facility] Comment on above: Performed By: #### H EMDF, PT, CMP3 ####[facility] [place], [place] Comprehensive Metabolic Pane kile 03-02-2022 Albumin [Mass/Vol] 4.1 g/dL 3.5 - 5.0 g/dL [facility] (Bld) [Catalytic activity/Vol] 128 U/L High 38 - 126 U/L [facility] ALT [Catalytic activity/Vol] 12 U/L 0 - 49 U/L [facility] Comment on above: The ALT test [...] P INF mL/min [facility] EGFR IF NonAfrican [place]er mL/min 60 - PINF mL/min [facility] Comment on above: KDIGO guidelines pro [...] - 17 mg/dL [facility] Test Performed by [facility], [address] [place] [address] LAB [facility] ED Provider Noteon ED Provider Note [facility] EMERGENCY DEPT EMERGENCY DEPARTMENT ENCOUNTER Pt Name: Andrew Sifuentes Birthdate 1950 Date of evaluation: 03/02/2022 Provider: Lanette Munguia DO CHIEF COMPLAINT Chief Complaint Patient presents with Fall Patient had unwitnessed fall at [facility] landed on butt. Is on thinners, denies LOC, denies head injury has no complaints at this time HISTORY OF PRESENT ILLNESS (Location/Symptom, Timing/Onset, Context/Setting, Quality, Duration, Modifying Factors, Severity) Note limiting factors. I wore a N-95 mask for the entirety of this encounter. Andrew Sifuentes is a 71 y.o. male medical history of hydrocephalus status post IMMUNOLOGIST shunt, history of DVT on Coumadin who presents to the emergency department from [facility] for evaluation following mechanical fall. Patient rolled out of bed. Unwitnessed. Found down on ground by nursing staff. Nonambulatory at baseline. Patient reports he did not hit his head. Has no acute complaints. Denies any pain or traumatic injury. [facility], sent to emergency department due to unwitnessed [...] Hemorrhoids Hydrocephalus, adult (HCC) Kidney stone Neuropathy IMMUNOLOGIST (ventriculoperitoneal) shunt status SURGICAL HISTORY Past Surgical [...] CONTRAST R (more content not included)... Normal [facility] [email or web address] Hemogram w/ Autodiffon 03-02 Abs Baso Cnt 0.2 10*3/uL Normal 0.0-0.2 [facility] [email or web address] Comment on above: Performed By: #### H EMDF, PT, CMP3 ####[facility] [address] [place] [address] Abs Neutrophile Cnt 10.7 10*3/uL High 1.8-7.0 [facility] Comment on above: Performed By: #### H TIERA PT, CMP3 ####[address] [place] [address] Basophils/100 WBC (Bld) 1.1 % Normal 0.0-2.0 [facility] Comment on above: Performed By: #### H TIERA PT, CMP3 ####[address] [address] Eosinophils (Bld) [#/Vol] 0.1 10*3/uL Normal 0.0-0.5 [facility] Comment on above: Performed By: #### H TIERA PT, CMP3 ####[address] [address] Eosinophils/100 WBC (Bld) 0.5 % Low 1.0-6.0 [facility] Comment on above: Performed By: #### H TIERA PT, CMP3 ####[address] [address] Granulocytes/100 WBC (Bld) 73.9 % Normal 40.0-80.0 [facility] Comment on above: Performed By: #### H TIERA PT, CMP3 ####[address] [address] Lymphocytes (Bld) [#/Vol] 3.0 10*3/uL Normal 1.0-4.3 [facility] Comment on above: Performed By: #### H BIMALF PT, CMP3 ####[address] [address] Lymphocytes/100 WBC (Bld) 20.6 % Normal 20.0-40.0 [facility] Comment on above: Performed By: #### H EMDF PT, CMP3 ####[address] [address] Monocytes (Bld) [#/Vol] 0.6 10*3/uL Normal 0.0-0.8 [facility] Comment on above: Performed By: #### H EMDHeydi PT, CMP3 ####[address] [place], [place] Monocytes/100 WBC (Bld) 3.9 % Normal 2.0-10.0 [facility] Comment on above: Performed By: #### H EMDF PT, CMP3 ####[address] Platelet mean volume (Bld) [Entitic vol] 8.5 fL Normal 7.4-12.4 [facility] Comment on above: Result Comment: MPV is a calculated measurement using platelet volume ratio. Performed By: #### H TIERA PT, CMP3 ####[address] Platelets (Bld) [#/Vol] 411 10*3/uL Normal 140-440 [facility] Comment on above: Performed By: #### H EMDHeydi PT, CMP3 ####[address] Erythrocyte distribution width (RBC) [Ratio] 17.0 % High 11.5-14.5 [facility] Comment on above: Performed By: #### H EMDF PT, CMP3 ####[address] Hematocrit (Bld) [Volume fraction] 37.4 % Low 40.0-52.0 [facility] Comment on above: Performed By: #### H EMDF PT, CMP3 ####[address] Hemoglobin (Bld) [Mass/Vol] 12.1 g/dL Low 13.0-18.0 [facility] Comment on above: Performed By: #### H EMDF, PT, CMP3 ####[address] [place], [place] MCH (RBC) [Entitic mass] 26.2 pg Normal 26.0-34.0 [facility] Comment on above: Performed By: #### H EMDF, PT, CMP3 ####[address] [place], [place] MCHC 32.3 % Normal 32.0-36.0 [facility] Comment on above: Performed By: #### H EMDF, PT, CMP3 ####[address] MCV (RBC) [Entitic vol] 81.1 fL Normal 80.0-98.0 [facility] Comment on above: Performed By: #### H EMDF, PT, CMP3 ####[address] RBC (Bld) [#/Vol] 4.61 10*6/uL Normal 4.40-5.90 [facility] Comment on above: Performed By: #### H EMDF, PT, CMP3 ####[address] WBC (Bld) [#/Vol] 14.5 10*3/uL High 3.6-10.7 [facility] Comment on above: Performed By: #### H EMDF, PT, CMP3 ####[address] Prothrombin Timeon 2 INR 1.9 High 0.9-1.1 [facility] Comment on above: Result Comment: Harry mmended [...] Performed By: #### H EMDF, PT, CMP3 ####[address] PT Coag (PPP) [Time] 18.9 s High 9.0-12.0 [facility] Comment on above: Result Comment: . Performed By: #### H EMDF, PT, CMP3 ####[facility] [place] [address] Protime-INRon 03-02-2022 INR Coag (Bld) [Relative time] 1.9 {INR} High [facility] Comment on above: Recommended Anticoag ulant [...] Interpretation and review of laboratory results Abnormal [facility] PT Coag (PPP) [Time] 18.9 s High 9.0 - 12.0 s [facility] Comment on above: . Test Performed by [facility], [address] [place] [address] [facility] LAB [facility] Laboratory - CoagulationOrde red By: Carlos Cavazos on 02-20-2022 INR Coag (Bld) [Relative time] 2.6 {INR} [facility] Comment on above: Critical Value > 4.0 Whole blood prothrombin time Ordered By: Carlos Cavazos on 02-20-2022 PT Coag (Bld) [Time] 30.1 s 11.7-14.9 [facility] Laboratory - CoagulationOrde red By: Carlos Cavazos on 02-13-2022 INR Coag (Bld) [Relative time] 2.3 {INR} [facility] Comment on above: Critical Value > 4.0 Whole blood prothrombin time Ordered By: Carlos Cavazos on 02-13-2022 PT Coag (Bld) [Time] 26.7 s 11.7-14.9 [facility] Laboratory - CoagulationOrde red By: Carlos Cavazos on 02-06-2022 INR Coag (Bld) [Relative time] 2.3 {INR} [facility] Comment on above: Critical Value > 4.0 Whole blood prothrombin time Ordered By: Carlos Cavazos on 02-06-2022 PT Coag (Bld) [Time] 26.6 s 11.7-14.9 [facility] Laboratory - Coagulationon 0 01-30-2022 INR Coag (Bld) [Relative time] 1.7 {INR} [facility] Work Phone: Comment on above: Critical Value > 4.0 Whole blood prothrombin time on 01-30-2022 PT Coag (Bld) [Time] 20.1 s 11.7-14.9 [facility] Work Phone: Laboratory - Coagulationon 0 01-26-2022 INR Coag (Bld) [Relative time] 1.8 {INR} [facility] Work Phone: Comment on above: Critical Value > 4.0 Whole blood prothrombin time on 01-26-2022 PT Coag (Bld) [Time] 21.8 s 11.7-14.9 [facility] Work Phone: Laboratory - Coagulationon 0 01-19-2022 INR Coag (Bld) [Relative time] 2.2 {INR} [facility] Work Phone: Comment on above: Critical Value > 4.0 Whole blood prothrombin time on 01-19-2022 PT Coag (Bld) [Time] 25.7 s 11.7-14.9 [facility] Work Phone: INR in Blood by Coagulation assayon 01-10-2022 INR Coag (Bld) [Relative time] 1.8 {INR} [facility] Work Phone: Laboratory - Coagulationon 0 01-10-2022 PT Coag (PPP) [Time] 20.9 s 11.7-14.9 [facility] Work Phone: Basophil percentageon 2021 Chloride [Moles/Vol] 107 mmol/L 98-107 [facility] Work Phone: Glucose [Mass/Vol] 82 mg/dL 74-[address] [facility] Work Phone: Potassium [Moles/Vol] 3.4 mmol/L 3.5-5.1 [facility] Work Phone: Sodium [Moles/Vol] 143 mmol/L 136-[address] [facility] Work Phone: WBC (Bld) [#/Vol] 10.4 10*3/uL 4.4-11.0 [facility] Work Phone: Blood erythrocytes count (nu mber/volume)on 01-05-2022 RBC (Bld) [#/Vol] 4.27 10*6/uL 4.6-6.2 [facility] Work Phone: Blood hemoglobin measurement (mass/volume)on 01-05-2022 Hemoglobin (Bld) [Mass/Vol] 11.2 g/dL 13.0-16.5 [facility] Work Phone: Blood platelet mean volumeon 01-05-2022 Platelet mean volume (Bld) [Entitic vol] 10.3 fL 6.2-12.0 [facility] Work Phone: Determination of erythrocyte mean corpuscular volume (MCV)on 01-05-2022 MCV (RBC) [Entitic vol] 84.8 fL 80-94 [facility] Work Phone: Hematocrit Auto (Bld) [Volum e fraction]on 01-05-2022 Hematocrit (Bld) [Volume fraction] 36.2 % 40-54 [facility] Work Phone: Laboratory - Chemistry and C hemistry - challengeon 01-05-2022 CO2 [Moles/Vol] 28.0 mmol/L 21.0-32.0 [facility] Work Phone: Urea nitrogen/Creatinine [Mass ratio] 20.0 mg/mg 10-20 [facility] Work Phone: Laboratory - Hematology and Cell countson 01-05-2022 Erythrocyte distribution width (RBC) [Entitic vol] 51.8 fL 35.1-43.9 [facility] Work Phone: Erythrocyte distribution width (RBC) [Ratio] 16.8 % 11.6-14.6 [facility] Work Phone: MCH (RBC) [Entitic mass] 26.2 pg 27.0-32.0 [facility] Work Phone: MCHC Auto (RBC) [Mass/Vol]on 01-05-2022 MCHC (RBC) [Mass/Vol] 30.9 g/dL 32-36 [facility] Work Phone: No Panel Informationon 01-05 Estimated GFR (MDRD) Amer 133 mL/min >60 [facility] Work Phone: Comment on above: GFR Calc Estimated GFR (MDRD) Non-Af Amer 110 mL/min >60 [facility] Work Phone: Comment on above: Non- GFR Calc Platelets bldon 01-05-2022 Platelets (Bld) [#/Vol] 373 10*3/uL 150-450 [facility] Work Phone: Serum or plasma calcium oral urement (mass/volume)on 01-05-2022 Calcium [Mass/Vol] 8.8 mg/dL 8.5-10.[address] [facility] Work Phone: Serum or plasma creatinine m easurement (mass/volume)on 01-05-2022 Creatinine [Mass/Vol] 0.75 mg/dL 0.70-1.30 [facility] Work Phone: Comment on above: The validity of the calculated GFR & GFRAA in patients over 70 years has not been determined. Clinical correlation is essential. Serum or plasma urea nitroge n measurement (mass/volume)on 01-05-2022 Urea nitrogen [Mass/Vol] 15 mg/dL 7-18 [facility] Work Phone: Thin prep Papanicolaou smear with manual screeningon 01-05-2022 Thin prep Papanicolaou smear with manual screening 8 5-15 [facility] Work Phone: Laboratory - Coagulationon 0 12-30-2021 INR Coag (Bld) [Relative time] 2.0 {INR} [facility] Work Phone: Comment on above: Critical Value > 4.0 Whole blood prothrombin time on 12-30-2021 PT Coag (Bld) [Time] 23.7 s 11.7-14.9 [facility] Work Phone: Basophil percentageon 2021 Chloride [Moles/Vol] 106 mmol/L 98-107 [facility] Work Phone: Glucose [Mass/Vol] 91 mg/dL 74-[address] [facility] Work Phone: Potassium [Moles/Vol] 3.4 mmol/L 3.5-5.1 [facility] Work Phone: Sodium [Moles/Vol] 141 mmol/L 136-[address] [facility] Work Phone: WBC (Bld) [#/Vol] 10.2 10*3/uL 4.4-11.0 [facility] Work Phone: Blood erythrocytes count (nu mber/volume)on 12-28-2021 RBC (Bld) [#/Vol] 4.22 10*6/uL 4.6-6.2 [facility] Work Phone: Blood hemoglobin measurement (mass/volume)on 12-28-2021 Hemoglobin (Bld) [Mass/Vol] 11.2 g/dL 13.0-16.5 [facility] Work Phone: Blood platelet mean volumeon 12-28-2021 Platelet mean volume (Bld) [Entitic vol] 10.1 fL 6.2-12.0 [facility] Work Phone: Determination of erythrocyte mean corpuscular volume (MCV)on 12-28-2021 MCV (RBC) [Entitic vol] 82.7 fL 80-94 [facility] Work Phone: Hematocrit Auto (Bld) [Volum e fraction]on 12-28-2021 Hematocrit (Bld) [Volume fraction] 34.9 % 40-54 [facility] Work Phone: Laboratory - Chemistry and C hemistry - challengeon 12-28-2021 CO2 [Moles/Vol] 30.0 mmol/L 21.0-32.0 [facility] Work Phone: Urea nitrogen/Creatinine [Mass ratio] 33.7 mg/mg 10-20 [facility] Work Phone: Laboratory - Hematology and Cell countson 12-28-2021 Erythrocyte distribution width (RBC) [Entitic vol] 49.1 fL 35.1-43.9 [facility] Work Phone: Erythrocyte distribution width (RBC) [Ratio] 16.5 % 11.6-14.6 [facility] Work Phone: MCH (RBC) [Entitic mass] 26.5 pg 27.0-32.0 [facility] Work Phone: MCHC Auto (RBC) [Mass/Vol]on 12-28-2021 MCHC (RBC) [Mass/Vol] 32.1 g/dL 32-36 [facility] Work Phone: No Panel Informationon 12-28 Estimated GFR (MDRD) Amer 174 mL/min >60 [facility] Work Phone: Comment on above: GFR Calc Estimated GFR (MDRD) Non-Af Amer 143 mL/min >60 [facility] Work Phone: Comment on above: Non- GFR Calc Platelets bldon 12-28-2021 Platelets (Bld) [#/Vol] 339 10*3/uL 150-450 [facility] Work Phone: Serum or plasma calcium oral urement (mass/volume)on 12-28-2021 Calcium [Mass/Vol] 8.6 mg/dL 8.5-10.[address] [facility] Work Phone: Serum or plasma creatinine m easurement (mass/volume)on 12-28-2021 Creatinine [Mass/Vol] 0.59 mg/dL 0.70-1.30 [facility] Work Phone: Comment on above: The validity of the calculated GFR & GFRAA in patients over 70 years has not been determined. Clinical correlation is essential. Serum or plasma urea nitroge n measurement (mass/volume)on 12-28-2021 Urea nitrogen [Mass/Vol] 20 mg/dL 7-18 [facility] Work Phone: Thin prep Papanicolaou smear with manual screeningon 12-28-2021 Thin prep Papanicolaou smear with manual screening 5 5-15 [facility] Work Phone: CULTURE BLOODon 12-27-2021 Microscopic examination of blood, culture CULTURE BLOOD --> Status: F No growth at 5 days. Normal [facility] Comment on above: Performed By: #### C /BLD #### [facility] [email or web address] [address] [place], [place] Laboratory - Coagulationon 0 12-26-2021 INR Coag (Bld) [Relative time] 1.7 {INR} [facility] Work Phone: Comment on above: Critical Value > 4.0 Whole blood prothrombin time on 12-26-2021 PT Coag (Bld) [Time] 20.8 s 11.7-14.9 [facility] Work Phone: Basic Metabolic Panelon 12-05 Calcium [Mass/Vol] 8.8 mg/dL Normal 8.4-10.4 [facility] Comment on above: Performed By: #### C RP2, ESR, HEMDF, BMP3 ####[email or web address] [place] [address] Anion gap [Moles/Vol] 6 mmol/L Normal 3-13 [facility] Comment on above: Performed By: #### C RP2, ESR, HEMDF, BMP3 ####[email or web address] [place] [address] CO2 [Moles/Vol] 27 mmol/L Normal 22-30 [facility] Comment on above: Performed By: #### C RP2, ESR, HEMDF, BMP3 ####[facility] [place] [address] Glucose [Mass/Vol] 100 mg/dL Normal 70-100 [facility] Comment on above: Performed By: #### C RP2, ESR, HEMDF, BMP3 ####[facility] [place] [address] Urea nitrogen [Mass/Vol] 18 mg/dL High 7-17 [facility] Comment on above: Performed By: #### C RP2, ESR, HEMDF, BMP3 ####[address] [place] [address] Creatinine [Mass/Vol] 0.73 mg/dL Normal 0.52-1.25 [facility] Comment on above: Performed By: #### C RP2, ESR, HEMDF, BMP3 ####[address] [place], [place] eGFR OTHER > 90.0 Normal >60 [facility] Comment on above: Result Comment: KDIG O [...] By: #### C RP2, ESR, HEMDF, BMP3 ####[address] [place], [place] GFR/1.73 sq M.predicted among blacks MDRD (S/P/Bld) [Vol rate/Area] mL/min/{1.73_m2} Normal >60 [facility] Comment on above: Performed By: #### C RP2, ESR, HEMDF, BMP3 ####[facility] [place] [address] Potassium [Moles/Vol] 3.7 mmol/L Normal 3.5-5.1 [facility] Comment on above: Performed By: #### C RP2, ESR, HEMDF, BMP3 ####[facility] [place] [address] Chloride [Moles/Vol] 106 mmol/L Normal 98-107 [facility] Comment on above: Performed By: #### C RP2, ESR, HEMDF, BMP3 ####[address] [place], [place] Sodium [Moles/Vol] 139 mmol/L Normal 135-145 [facility] Comment on above: Performed By: #### C RP2, ESR, HEMDF, BMP3 ####[address] [place], [place] Anion gap [Moles/Vol] 6 mmol/L 3 - 13 mmol/L [facility] Calcium [Mass/Vol] 8.8 mg/dL 8.4 - 10. 4 mg/dL [facility] Chloride [Moles/Vol] 106 mmol/L 98 - 10 7 mmol/L [facility] CO2 [Moles/Vol] 27 mmol/L 22 - 30 mmol/L [facility] Creatinine [Mass/Vol] 0.73 mg/dL 0.52 - 1.25 mg/dL [facility] eGFR mL/min 60 - P INF mL/min [facility] EGFR IF NonAfrican [place]er mL/min 60 - PINF mL/min [facility] Comment on above: KDIGO guidelines pro [...] 2021 Basophil percentage 25-50 SEEN /hpf 0-5 [facility] Work Phone: Chloride [Moles/Vol] 106 mmol/L 98-107 [facility] Work Phone: [phone] Glucose [Mass/Vol] 93 mg/dL 74-[address] [facility] Work Phone: Potassium [Moles/Vol] 3.5 mmol/L 3.5-5.1 [facility] Work Phone: Sodium [Moles/Vol] 140 mmol/L 136-[address] [facility] Work Phone: WBC (Bld) [#/Vol] 9.6 10*3/uL 4.4-11.[address] [facility] Work Phone: Bilirubin Test strip Ql (U)o n 12-22-2021 Bilirubin Ql (U) Negative Negative [facility] Work Phone: Blood erythrocytes count (nu mber/volume)on 12-22-2021 RBC (Bld) [#/Vol] 4.34 10*6/uL 4.6-6.2 [facility] Work Phone: Blood hemoglobin measurement (mass/volume)on 12-22-2021 Hemoglobin (Bld) [Mass/Vol] 11.5 g/dL 13.0-16.5 [facility] Work Phone: Blood platelet mean volumeon 12-22-2021 Platelet mean volume (Bld) [Entitic vol] 10.8 fL 6.2-12.0 [facility] Work Phone: C-Reactive Proteinon 022 CRP [Mass/Vol] 27.2 mg/L High 0.0-9.9 [employer] Comment on above: Result Comment: . Performed By: #### C RP2, ESR, HEMDF, BMP3 ####[employer] [id number] [place] [address] CRP [Mass/Vol] 27.2 mg/L High 0 - 9.9 mg/L [facility] Comment on above: . CBC with [...] - 10.7 10*3/uL [facility] Test Performed by [place] [id number] [facility] COVID-19, Flu A/B, and RSV C omon 12-22-2021 Influenza A by PCR Not detected [facility] A Influenza B by PCR Not detected [facility] A RSV PCR Not Detected. Expected Result: Not Detected _ Method: Real-time, RT-PCR This assay was developed by [employer] and distributed under an Emergency Use Authorization (EUA) granted by the FDA for the qualitative detection of nucleic acids from SARS-CoV-2, Influenza A, Influenza B, and Respiratory Syncytial Virus. Provider and patient fact sheets can be found at https://www.fda.gov/media /564933/download and https://www.fda.gov/media /724762/download. [facility] SARS-CoV-2 (COVID-19) RNA MEGAN+probe Ql (Unsp spec) Not detected [facility] Test Performed by [address] [address] [facility] CR Foot Complete 3+ Views Le fton 12-22-2021 CR Foot Complete 3+ Views Left Patient Name: ANDREW SIFUENTES Diagnostic Radiology ACCESSION EXAM DATE/TIME PROCEDURE ORDERING PROVIDER [id number] 12/22/2021 00:09 EDT CR Foot Complete 3+ SANDY HIDALGO, HENRY Godoy Views Left CPT code 11095 Reason For Exam (CR Foot Complete 3+ [...] Transcribed Date and Time: 12/22/2021 0:21 Normal [facility] Calcium oxalate crystals det ection in urine sediment by light microscopyon 12-22-2021 Calcium oxalate crystals LM Ql (Urine sed) 1+ /hpf [facility] Work Phone: Determination of erythrocyte mean corpuscular volume (MCV)on 12-22-2021 MCV (RBC) [Entitic vol] 84.3 fL 80-94 [facility] Work Phone: ED Provider Noteon [...] leg for a while. According to EMS [facility] staff completed x-ray of the lower extremity and there was concern for osteomyelitis hence transferring patient to the hospital. Patient states this time the wounds on the left lower extremity for extended period of time. He denies fevers or chills. Patient states [facility] staff have been taking care of the wound for him. Focused exam: Blood pressure 108/67, pulse 77, temperature 97.9 ?F (36.6 ?C), temperature source Oral, resp. rate 16, height 5' 9" (1.753 m), weight 79.4 kg (175 lb), SpO2 96 %. [id number] in no acute distress. Alert and oriented [...] [employer] Sharon Olivia MD 12/22/[address] [facility] ED Provider Note [facility] EMERGENCY DEPT EMERGENCY DEPARTMENT ENCOUNTER Pt Name: Andrew Sifuentes Birthdate 1950 Date of evaluation: 12/21/2021 Provider: SANIA Lou CHIEF COMPLAINT Chief Complaint Patient presents with Osteomyelitis Patient from [facility], facility did xrays on left lower leg and and have concerns for possible osteomyelitis A&Ox2 to self and place, stated year 2022 preside Miss martini HISTORY OF PRESENT ILLNESS (Location/Symptom, Timing/Onset, Context/Setting, Quality,Duration, Modifying Factors, Severity) Note limiting factors. HPI I have seen this patient With supervising physician Does this patient come from an ECF, SNF, Rehab, Retirement or other Congregate setting: no (If yes [...] Hemorrhoids Hydrocephalus, adult (HCC) Kidney stone Neuropathy IMMUNOLOGIST (ventriculoperitoneal) shunt status SURGICAL HISTORY Past Surgical [...] Take 100 mg by mouth daily HANDICAP DENZEL MISC by Does not apply route Duration: [...] use: No Sexual activity: Not Currently SCREENINGS [place] Coma Scale Eye Opening: Spontaneous Best Verbal Response: Confused Best Motor Response: Obeys commands [place] Coma Scale Score: 14 Patient symptoms are [...] soft. Tenderness: (more content not included)... Normal [facility] Hematocrit Auto (Bld) [Volum e fraction]on 12-22-2021 Hematocrit (Bld) [Volume fraction] 36.6 % 40-54 [facility] Work Phone: Hemogram w/ Autodiffon 12-22 Abs Baso Cnt 0.1 10*3/uL Normal 0.0-0.2 [facility] Comment on above: Performed By: #### C RP2, ESR, HEMDF, BMP3 ####[place] [id number] [place], [place] Abs Neutrophile Cnt 5.9 10*3/uL Normal 1.8-7.0 [facility] Comment on above: Performed By: #### C RP2, ESR, HEMDF, BMP3 ####[facility] [address] [place] [address] [place], [place] Basophils/100 WBC (Bld) 0.7 % Normal 0.0-2.0 [facility] Comment on above: Performed By: #### C RP2, ESR, HEMDF, BMP3 ####[facility] [id number] [place], [place] Eosinophils (Bld) [#/Vol] 0.2 10*3/uL Normal 0.0-0.5 [facility] Comment on above: Performed By: #### C RP2, ESR, HEMDF, BMP3 ####[facility] [id number] [place], [place] Eosinophils/100 WBC (Bld) 2.3 % Normal 1.0-6.0 [facility] Comment on above: Performed By: #### C RP2, ESR, HEMDF, BMP3 ####[facility] [id number] [place] Erythrocyte distribution width (RBC) [Ratio] 17.5 % High 11.5-14.5 [facility] Comment on above: Performed By: #### C RP2, ESR, HEMDF, BMP3 ####[facility] [id number] [place] [address] Granulocytes/100 WBC (Bld) 57.8 % Normal 40.0-80.0 [facility] Comment on above: Performed By: #### C RP2, ESR, HEMDF, BMP3 ####[address] Hematocrit (Bld) [Volume fraction] 33.3 % Low 40.0-52.0 [facility] Comment on above: Performed By: #### C RP2, ESR, HEMDF, BMP3 ####[address] Hemoglobin (Bld) [Mass/Vol] 11.0 g/dL Low 13.0-18.0 [facility] Comment on above: Performed By: #### C RP2, ESR, HEMDF, BMP3 ####[place] [id number] [place], [place] Lymphocytes (Bld) [#/Vol] 3.3 10*3/uL Normal 1.0-4.3 [facility] Comment on above: Performed By: #### C RP2, ESR, HEMDF, BMP3 ####[address] Lymphocytes/100 WBC (Bld) 33.0 % Normal 20.0-40.0 [facility] Comment on above: Performed By: #### C RP2, ESR, HEMDF, BMP3 ####[address] MCH (RBC) [Entitic mass] 26.5 pg Normal 26.0-34.0 [facility] Comment on above: Performed By: #### C RP2, ESR, HEMDF, BMP3 ####[address] MCHC 33.1 % Normal 32.0-36.0 [facility] Comment on above: Performed By: #### C RP2, ESR, HEMDF, BMP3 ####[address] MCV (RBC) [Entitic vol] 80.2 fL Normal 80.0-98.0 [facility] Comment on above: Performed By: #### C RP2, ESR, HEMDF, BMP3 ####[address] Monocytes (Bld) [#/Vol] 0.6 10*3/uL Normal 0.0-0.8 [facility] Comment on above: Performed By: #### C RP2, ESR, HEMDF, BMP3 ####[address] Monocytes/100 WBC (Bld) 6.2 % Normal 2.0-10.0 [facility] Comment on above: Performed By: #### C RP2, ESR, HEMDF, BMP3 ####[address] Platelet mean volume (Bld) [Entitic vol] 8.0 fL Normal 7.4-12.4 [facility] Comment on above: Result Comment: MPV is a calculated measurement using platelet volume ratio. Performed By: #### C RP2, ESR, HEMDF, BMP3 ####[place] [address] [place], [place] Platelets (Bld) [#/Vol] 368 10*3/uL Normal 140-440 [facility] Comment on above: Performed By: #### C RP2, ESR, HEMDF, BMP3 ####[place] [address] [place], [place] RBC (Bld) [#/Vol] 4.15 10*6/uL Low 4.40-5.90 [facility] Comment on above: Performed By: #### C RP2, ESR, HEMDF, BMP3 ####[address] WBC (Bld) [#/Vol] 10.1 10*3/uL Normal 3.6-10.7 [facility] Comment on above: Performed By: #### C RP2, ESR, HEMDF, BMP3 ####[address] [address] Ketones Test strip Ql (U)on 12-22-2021 Ketones Ql (U) Negative Negative [facility] Work Phone: Laboratory - Chemistry and C hemistry - challengeon 12-22-2021 CO2 [Moles/Vol] 27.0 mmol/L 21.0-32.0 [facility] Work Phone: Urea nitrogen/Creatinine [Mass ratio] 22.5 mg/mg 10-20 [facility] Work Phone: Laboratory - Hematology and Cell countson 12-22-2021 Erythrocyte distribution width (RBC) [Entitic vol] 49.1 fL 35.1-43.9 [facility] Work Phone: Erythrocyte distribution width (RBC) [Ratio] 16.1 % 11.6-14.6 [facility] Work Phone: MCH (RBC) [Entitic mass] 26.5 pg 27.0-32.0 [facility] Work Phone: MCHC Auto (RBC) [Mass/Vol]on 12-22-2021 MCHC (RBC) [Mass/Vol] 31.4 g/dL 32-36 [facility] Work Phone: Mucus LM Ql (Urine sed)on Mucus Ql (Urine sed) 0 SEEN /hpf [facility] Work Phone: Nitrite Test strip Ql (U)on 12-22-2021 Nitrite Ql (U) Positive Negative [facility] Work Phone: No Panel Informationon 12-22 Estimated GFR (MDRD) Amer 152 mL/min >60 [facility] Work Phone: Comment on above: GFR Calc Estimated GFR (MDRD) Non-Af Amer 125 mL/min >60 [facility] Work Phone: Comment on above: Non- GFR Calc Interpretation and review of laboratory results Abnormal [facility] Test Performed by [facility], [address] [place] [id number] [facility] Platelets bldon 12-22-2021 Platelets (Bld) [#/Vol] 317 10*3/uL 150-450 [facility] Work Phone: Protein Test strip Ql (U)on 12-22-2021 Protein Ql (U) 30 mg/dl Negative [facility] Work Phone: SARS-CoV-2, Flu A/B and RSVo n 12-22-2021 SARS-CoV-2 (COVID-19) RNA MEGAN+probe Ql (Unsp spec) SARS-CoV-2 --> Status: F Not Detected. Flu A PCR --> Status: F Not Detected. Flu B PCR --> Status: F Not Detected. RSV PCR --> Status: F Not Detected. Expected Result: Not Detected _ Method: Real-time, RT-PCR This assay was developed by [employer] and distributed under an Emergency Use Authorization (EUA) granted by the FDA for the qualitative detection of nucleic acids from SARS-CoV-2, Influenza A, Influenza B, and Respiratory Syncytial Virus. Provider and patient fact sheets can be found at https://www.fda.gov/media /591574/download and https://www.fda.gov/media /172572/download. Expected Result: Not Detected _ Method: Real-time, RT-PCR This assay was developed by [employer] and distributed under an Emergency Use Authorization (EUA) granted by the FDA for the qualitative detection of nucleic acids from SARS-CoV-2, Influenza A, Influenza B, and Respiratory Syncytial Virus. Provider and patient fact sheets can be found at https://www.fda.gov/media /970774/download and https://www.fda.gov/media /032041/download. Normal [facility] Comment on above: Performed By: #### C VFLR ####[facility] [address] [place] , [address] Sed Rateon 12-22-2021 Sed Rate 48 mm/h High 0-10 [facility] Comment on above: Performed By: #### C RP2, ESR, HEMDF, BMP3 ####[facility] [place] [address] Sedimentation Rateon 022 Interpretation and review of laboratory results Abnormal [facility] Sed Rate 48 mm/h High 0 - 10 mm/h [facility] Test Performed by [facility], [address] [place] [address] [facility] Serum or plasma calcium oral urement (mass/volume)on 12-22-2021 Calcium [Mass/Vol] 8.6 mg/dL 8.5-10.[address] [facility] Work Phone: Serum or plasma creatinine m easurement (mass/volume)on 12-22-2021 Creatinine [Mass/Vol] 0.67 mg/dL 0.70-1.30 [facility] Work Phone: Comment on above: The validity of the calculated GFR & GFRAA in patients over 70 years has not been determined. Clinical correlation is essential. Serum or plasma urea nitroge n measurement (mass/volume)on 12-22-2021 Urea nitrogen [Mass/Vol] 15 mg/dL 11-21 [facility] Work Phone: Squamous epithelial cells de tection in urine sediment by light microscopyon 12-22-2021 Epithelial cells.squamous LM Ql (Urine sed) 0-5 SEEN /hpf 0-5 [facility] Work Phone: Thin prep Papanicolaou smear with manual screeningon 12-22-2021 Thin prep Papanicolaou smear with manual screening 7 5-15 [facility] Work Phone: Urine blood detectionon 12-05 RBC Ql (U) 150 /ul Negative [facility] Work Phone: RBC Ql (U) 10-25 SEEN /hpf 0-5 [facility] Work Phone: Urine clarityon 12-22-2021 Clarity (U) Sl. Cloudy Clear [facility] Work Phone: Urine color determinationon 12-22-2021 Color (U) Yellow Yellow [facility] Work Phone: Urine glucose detectionon Glucose Ql (U) Normal mg/dl Normal [facility] Work Phone: Urine leukocyte esterase det ection by dipstickon 12-22-2021 Leukocyte esterase Test strip Ql (U) 500 /ul Negative [facility] Work Phone: Urine pHon 12-22-2021 pH (U) 6.0 [pH] 5.0 - 8.0 [facility] Work Phone: Urine sediment bacteria coun t by microscopy (number/high power field)on 12-22-2021 Bacteria LM.HPF (Urine sed) [#/Area] 2 /[HPF] None Seen [facility] Work Phone: Urine specific gravity measu rementon 12-22-2021 Specific gravity (U) [Rel density] 1.020 1.002-1.030 [facility] Work Phone: Urobilinogen Auto test strip Ql (U)on 12-22-2021 Urobilinogen Ql (U) Normal mg/dl Normal [facility] Work Phone: XR FOOT LEFT (MIN 3 VIEWS)on 12-22-2021 Patient Name: ANDREW SIFUENTES Diagnostic Radiology ACCESSION EXAM DATE/TIME PROCEDURE ORDERING PROVIDER [id number] 12/22/2021 00:09 EDT CR Foot Complete 3+ SANDY HIDALGO, JOAN Views Left CPT code 60513 Reason For Exam (CR Foot Complete 3+ [...] JEFFREY Transcribed Date and Time: 12/22/2021 0:21 [facility] Albert Solano MD - 12/22/2021 Patient Name: ANDREW SIFUENTES Diagnostic Radiology ACCESSION EXAM DATE/TIME PROCEDURE ORDERING PROVIDER [id number] 12/22/2021 00:09 EDT CR Foot Complete 3+ SANDY HIDALGO JOHN M Views Left CPT code 04710 Reason For Exam (CR Foot Complete 3+ [...] JEFFREY Transcribed Date and Time: 12/22/2021 0:21 [facility] Work Phone: Radiology Study observation (narrative) [facility] Work Phone: XR FOOT LEFT (MIN 3 VIEWS)Or dered By: Albert Solano on 12-22-2021 [facility] Work Phone: Basophil percentageon 2021 Chloride [Moles/Vol] 103 mmol/L 98-[address] [facility] Work Phone: Glucose [Mass/Vol] 92 mg/dL 74-106 [facility] Work Phone: Potassium [Moles/Vol] 3.5 mmol/L 3.5-5.1 [facility] Work Phone: Sodium [Moles/Vol] 138 mmol/L 136-145 [facility] Work Phone: WBC (Bld) [#/Vol] 11.2 10*3/uL 4.4-11.0 [facility] Work Phone: Blood erythrocytes count (nu mber/volume)on 12-19-2021 RBC (Bld) [#/Vol] 4.50 10*6/uL 4.6-6.2 [facility] Work Phone: Blood hemoglobin measurement (mass/volume)on 12-19-2021 Hemoglobin (Bld) [Mass/Vol] 12.2 g/dL 13.0-16.5 [facility] Work Phone: Blood platelet mean volumeon 12-19-2021 Platelet mean volume (Bld) [Entitic vol] 11.3 fL 6.2-12.0 [facility] Work Phone: Determination of erythrocyte mean corpuscular volume (MCV)on 12-19-2021 MCV (RBC) [Entitic vol] 85.6 fL 80-94 [facility] Work Phone: Hematocrit Auto (Bld) [Volum e fraction]on 12-19-2021 Hematocrit (Bld) [Volume fraction] 38.5 % 40-54 [facility] Work Phone: Laboratory - Chemistry and C hemistry - challengeon 12-19-2021 CO2 [Moles/Vol] 30.0 mmol/L 21.0-32.0 [facility] Work Phone: Urea nitrogen/Creatinine [Mass ratio] 27.1 mg/mg 10-20 [facility] Work Phone: Laboratory - Hematology and Cell countson 12-19-2021 Erythrocyte distribution width (RBC) [Entitic vol] 50.5 fL 35.1-43.9 [facility] Work Phone: Erythrocyte distribution width (RBC) [Ratio] 16.0 % 11.6-14.6 [facility] Work Phone: MCH (RBC) [Entitic mass] 27.1 pg 27.0-32.0 [facility] Work Phone: MCHC Auto (RBC) [Mass/Vol]on 12-19-2021 MCHC (RBC) [Mass/Vol] 31.7 g/dL 32- [facility] Work Phone: No Panel Informationon 12-19 Estimated GFR (MDRD) Amer 153 mL/min >60 [facility] Work Phone: Comment on above: GFR Calc Estimated GFR (MDRD) Non-Af Amer 126 mL/min >60 [facility] Work Phone: Comment on above: Non- GFR Calc Platelets bldon 12-19-2021 Platelets (Bld) [#/Vol] 363 10*3/uL 150-450 [facility] Work Phone: Serum or plasma calcium oral urement (mass/volume)on 12-19-2021 Calcium [Mass/Vol] 9.5 mg/dL 8.5-10.[address] [facility] Work Phone: Serum or plasma creatinine m easurement (mass/volume)on 12-19-2021 Creatinine [Mass/Vol] 0.66 mg/dL 0.70-1.30 [facility] Work Phone: Comment on above: The validity of the calculated GFR & GFRAA in patients over 70 years has not been determined. Clinical correlation is essential. Serum or plasma urea nitroge n measurement (mass/volume)on 12-19-2021 Urea nitrogen [Mass/Vol] 18 mg/dL 7-18 [facility] Work Phone: Thin prep Papanicolaou smear with manual screeningon 12-19-2021 Thin prep Papanicolaou smear with manual screening 5 5-15 [facility] Work Phone: Laboratory - Coagulationon 0 12-12-2021 INR Coag (Bld) [Relative time] 2.0 {INR} [facility] Work Phone: Comment on above: Critical Value > 4.0 Whole blood prothrombin time on 12-12-2021 PT Coag (Bld) [Time] 23.9 s 11.7-14.9 [facility] Work Phone: ANES POSTPROC EVALon 022 ANES POSTPROC EVAL Normal [facility] Laboratory - Coagulationon 0 12-08-2021 INR Coag (Bld) [Relative time] 1.8 {INR} [facility] Work Phone: Comment on above: Critical Value > 4.0 Whole blood prothrombin time on 12-08-2021 PT Coag (Bld) [Time] 21.0 s 11.7-14.9 [facility] Work Phone: Absolute lymphocyte counton 12-05-2021 Lymphocytes Auto (Unsp spec) [#/Vol] 2.97 10*3/uL 0.83-4.51 [facility] Work Phone: Basophil percentageon 2021 Basophils/100 WBC (Bld) 0.6 % 0-1 [facility] Work Phone: Chloride [Moles/Vol] 106 mmol/L 98-107 [facility] Work Phone: Eosinophils/100 WBC (Bld) 2.3 % 0-5 [facility] Work Phone: Glucose [Mass/Vol] 107 mg/dL 74-[address] [facility] Work Phone: Comment on above: Fasting Glucose resu lt from 100 to 125 mg/dL suggests IMPAIRED HOMEOSTASIS per A.D.A. criteria. Neutrophils (Bld) [#/Vol] 5.6 10*3/uL 2.0-7.7 [facility] Work Phone: [phone] Neutrophils/100 WBC (Bld) 60.2 % 47-70 [facility] Work Phone: [phone] Potassium [Moles/Vol] 3.4 mmol/L 3.5-5.1 [facility] Work Phone: Sodium [Moles/Vol] 139 mmol/L 136-145 [facility] Work Phone: WBC (Bld) [#/Vol] 9.3 10*3/uL 4.4-11.0 [facility] Work Phone: Blood erythrocytes count (nu mber/volume)on 12-05-2021 RBC (Bld) [#/Vol] 4.49 10*6/uL 4.6-6.2 [facility] Work Phone: Blood hemoglobin measurement (mass/volume)on 12-05-2021 Hemoglobin (Bld) [Mass/Vol] 12.1 g/dL 13.0-16.5 [facility] Work Phone: Blood lymphocytes/100 leukoc yteson 12-05-2021 Lymphocytes/100 WBC (Bld) 32.0 % 19-41 [facility] Work Phone: [phone] Blood monocytes/100 leukocyt eson 12-05-2021 Monocytes/100 WBC (Bld) 4.7 % 0-10 [facility] Work Phone: Blood platelet mean volumeon 12-05-2021 Platelet mean volume (Bld) [Entitic vol] 10.8 fL 6.2-12.0 [facility] Work Phone: Determination of erythrocyte mean corpuscular volume (MCV)on 12-05-2021 MCV (RBC) [Entitic vol] 84.9 fL 80-94 [facility] Work Phone: Hematocrit Auto (Bld) [Volum e fraction]on 12-05-2021 Hematocrit (Bld) [Volume fraction] 38.1 % 40-54 [facility] Work Phone: INR in Blood by Coagulation assayon 12-05-2021 INR Coag (Bld) [Relative time] 1.8 {INR} [facility] Work Phone: Laboratory - Chemistry and C hemistry - challengeon 12-05-2021 CO2 [Moles/Vol] 29.0 mmol/L 21.0-32.0 [facility] Work Phone: Urea nitrogen/Creatinine [Mass ratio] 25.4 mg/mg 10-20 [facility] Work Phone: Laboratory - Coagulationon 0 12-05-2021 PT Coag (PPP) [Time] 20.5 s 11.7-14.9 [facility] Work Phone: Laboratory - Hematology and Cell countson 12-05-2021 Erythrocyte distribution width (RBC) [Entitic vol] 48.5 fL 35.1-43.9 [facility] Work Phone: Erythrocyte distribution width (RBC) [Ratio] 15.7 % 11.6-14.6 [facility] Work Phone: Immature granulocytes/100 WBC (Bld) 0.200 % 0.0-0.9 [facility] Work Phone: Comment on above: IG% - Immature Granu locytes (promyelocytes, myelocytes and metamyelocytes) > 1% indicates that a LEFT SHIFT is Present. MCH (RBC) [Entitic mass] 26.9 pg 27.0-32.0 [facility] Work Phone: Nucleated RBC/100 WBC (Bld) [Ratio] 0 % 0-5 [facility] Work Phone: MCHC Auto (RBC) [Mass/Vol]on 12-05-2021 MCHC (RBC) [Mass/Vol] 31.8 g/dL 32-36 [facility] Work Phone: No Panel Informationon 12-05 Estimated GFR (MDRD) Amer 133 mL/min >60 [facility] Work Phone: Comment on above: GFR Calc Estimated GFR (MDRD) Non-Af Amer 110 mL/min >60 [facility] Work Phone: Comment on above: Non- GFR Calc Platelets bldon 12-05-2021 Platelets (Bld) [#/Vol] 363 10*3/uL 150-450 [facility] Work Phone: Serum or plasma calcium oral urement (mass/volume)on 12-05-2021 Calcium [Mass/Vol] 9.4 mg/dL 8.5-10.[address] [facility] Work Phone: Serum or plasma creatinine m easurement (mass/volume)on 12-05-2021 Creatinine [Mass/Vol] 0.75 mg/dL 0.70-1.30 [facility] Work Phone: Comment on above: The validity of the calculated GFR & GFRAA in patients over 70 years has not been determined. Clinical correlation is essential. Serum or plasma urea nitroge n measurement (mass/volume)on 12-05-2021 Urea nitrogen [Mass/Vol] 19 mg/dL 7-18 [facility] Work Phone: Thin prep Papanicolaou smear with manual screeningon 12-05-2021 Thin prep Papanicolaou smear with manual screening 4 5-15 [facility] Work Phone: Basophil percentageon 2021 Basophil percentage 0 SEEN /hpf 0-5 [facility] Work Phone: Chloride [Moles/Vol] 104 mmol/L 98-107 [facility] Work Phone: Glucose [Mass/Vol] 90 mg/dL 74-[address] [facility] Work Phone: Potassium [Moles/Vol] 3.7 mmol/L 3.5-5.1 [facility] Work Phone: Comment on above: Slight Hemolysis, Re sult may be falsely increased. Sodium [Moles/Vol] 138 mmol/L 136-[address] [facility] Work Phone: WBC (Bld) [#/Vol] 10.7 10*3/uL 4.4-11.0 [facility] Work Phone: Bilirubin Test strip Ql (U)o n 12-01-2021 Bilirubin Ql (U) Negative Negative [facility] Work Phone: Blood erythrocytes count (nu mber/volume)on 12-01-2021 RBC (Bld) [#/Vol] 4.33 10*6/uL 4.6-6.2 [facility] Work Phone: Blood hemoglobin measurement (mass/volume)on 12-01-2021 Hemoglobin (Bld) [Mass/Vol] 11.6 g/dL 13.0-16.5 [facility] Work Phone: Blood platelet mean volumeon 12-01-2021 Platelet mean volume (Bld) [Entitic vol] 11.2 fL 6.2-12.0 [facility] Work Phone: Determination of erythrocyte mean corpuscular volume (MCV)on 12-01-2021 MCV (RBC) [Entitic vol] 85.2 fL 80-94 [facility] Work Phone: Hematocrit Auto (Bld) [Volum e fraction]on 12-01-2021 Hematocrit (Bld) [Volume fraction] 36.9 % 40-54 [facility] Work Phone: Ketones Test strip Ql (U)on 12-01-2021 Ketones Ql (U) Negative Negative [facility] Work Phone: Laboratory - Chemistry and C hemistry - challengeon 12-01-2021 CO2 [Moles/Vol] 27.0 mmol/L 21.0-32.0 [facility] Work Phone: Urea nitrogen/Creatinine [Mass ratio] 24.0 mg/mg 10-20 [facility] Work Phone: Laboratory - Coagulationon 0 12-01-2021 INR Coag (Bld) [Relative time] 1.6 {INR} [facility] Work Phone: Comment on above: Critical Value > 4.0 Laboratory - Hematology and Cell countson 12-01-2021 Erythrocyte distribution width (RBC) [Entitic vol] 47.9 fL 35.1-43.9 [facility] Work Phone: Erythrocyte distribution width (RBC) [Ratio] 15.5 % 11.6-14.6 [facility] Work Phone: MCH (RBC) [Entitic mass] 26.8 pg 27.0-32.0 [facility] Work Phone: MCHC Auto (RBC) [Mass/Vol]on 12-01-2021 MCHC (RBC) [Mass/Vol] 31.4 g/dL 32-36 [facility] Work Phone: Mucus LM Ql (Urine sed)on Mucus Ql (Urine sed) 0 SEEN /hpf [facility] Work Phone: Nitrite Test strip Ql (U)on 12-01-2021 Nitrite Ql (U) Negative Negative [facility] Work Phone: No Panel Informationon 12-01 Estimated GFR (MDRD) Amer 133 mL/min >60 [facility] Work Phone: Comment on above: GFR Calc Estimated GFR (MDRD) Non-Af Amer 110 mL/min >60 [facility] Work Phone: Comment on above: Non- GFR Calc Platelets bldon 12-01-2021 Platelets (Bld) [#/Vol] 336 10*3/uL 150-450 [facility] Work Phone: Protein Test strip Ql (U)on 12-01-2021 Protein Ql (U) 30 mg/dl Negative [facility] Work Phone: Serum or plasma calcium oral urement (mass/volume)on 12-01-2021 Calcium [Mass/Vol] 9.4 mg/dL 8.5-10.[address] [facility] Work Phone: Serum or plasma creatinine m easurement (mass/volume)on 12-01-2021 Creatinine [Mass/Vol] 0.75 mg/dL 0.70-1.30 [facility] Work Phone: Comment on above: The validity of the calculated GFR & GFRAA in patients over 70 years has not been determined. Clinical correlation is essential. Serum or plasma urea nitroge n measurement (mass/volume)on 12-01-2021 Urea nitrogen [Mass/Vol] 18 mg/dL 7-18 [facility] Work Phone: Squamous epithelial cells de tection in urine sediment by light microscopyon 12-01-2021 Epithelial cells.squamous LM Ql (Urine sed) 0-5 SEEN /hpf 0-5 [facility] Work Phone: Thin prep Papanicolaou smear with manual screeningon 12-01-2021 Thin prep Papanicolaou smear with manual screening 7 5-15 [facility] Work Phone: Urine blood detectionon 11-05 RBC Ql (U) Negative Negative [facility] Work Phone: RBC Ql (U) 0 SEEN /hpf 0-5 [facility] Work Phone: Urine clarityon 12-01-2021 Clarity (U) Clear Clear [facility] Work Phone: Urine color determinationon 12-01-2021 Color (U) Yellow Yellow [facility] Work Phone: Urine glucose detectionon Glucose Ql (U) 50 mg/dl Normal [facility] Work Phone: Urine leukocyte esterase det ection by dipstickon 12-01-2021 Leukocyte esterase Test strip Ql (U) Negative Negative [facility] Work Phone: Urine pHon 12-01-2021 pH (U) 6.0 [pH] 5.0 - 8.0 [facility] Work Phone: Urine sediment bacteria coun t by microscopy (number/high power field)on 12-01-2021 Bacteria LM.HPF (Urine sed) [#/Area] 0 /[HPF] None Seen [facility] Work Phone: Urine sediment yeast count b y microscopy (number/high powered field)on 12-01-2021 Yeast LM.HPF (Urine sed) [#/Area] 2 /[HPF] None Seen [facility] Work Phone: Urine specific gravity measu rementon 12-01-2021 Specific gravity (U) [Rel density] 1.010 1.002-1.030 [facility] Work Phone: Urobilinogen Auto test strip Ql (U)on 12-01-2021 Urobilinogen Ql (U) Normal mg/dl Normal [facility] Work Phone: Whole blood prothrombin time on 12-01-2021 PT Coag (Bld) [Time] 19.8 s 11.7-14.9 [facility] Work Phone: Laboratory - Coagulationon 0 11-28-2021 INR Coag (Bld) [Relative time] 1.6 {INR} [facility] Work Phone: Comment on above: Critical Value > 4.0 Whole blood prothrombin time on 11-28-2021 PT Coag (Bld) [Time] 18.8 s 11.7-14.9 [facility] Work Phone: INR in Blood by Coagulation assayon 11-23-2021 INR Coag (Bld) [Relative time] 2.7 {INR} [facility] Work Phone: Laboratory - Coagulationon 0 11-23-2021 PT Coag (PPP) [Time] 28.0 s 11.7-14.9 [facility] Work Phone: Laboratory - Coagulationon 0 11-22-2021 INR Coag (Bld) [Relative time] 3.8 {INR} [facility] Work Phone: Comment on above: Critical Value > 4.0 Whole blood prothrombin time on 11-22-2021 PT Coag (Bld) [Time] 42.8 s 11.7-14.9 [facility] Work Phone: INR in Blood by Coagulation assayon 11-21-2021 INR Coag (Bld) [Relative time] 3.9 {INR} [facility] Work Phone: Laboratory - Coagulationon 0 11-21-2021 PT Coag (PPP) [Time] 37.7 s 11.7-14.9 [facility] Work Phone: Whole blood prothrombin time on 11-21-2021 PT Coag (Bld) [Time] 45.5 s 11.7-14.9 [facility] Work Phone: INR in Blood by Coagulation assayon 11-14-2021 INR Coag (Bld) [Relative time] 3.1 {INR} [facility] Work Phone: Laboratory - Coagulationon 0 11-14-2021 PT Coag (PPP) [Time] 31.4 s 11.7-14.9 [facility] Work Phone: Laboratory - Coagulationon 0 11-08-2021 INR Coag (Bld) [Relative time] 2.5 {INR} [facility] Work Phone: Comment on above: Critical Value > 4.0 Whole blood prothrombin time on 11-08-2021 PT Coag (Bld) [Time] 29.0 s 11.7-14.9 [facility] Work Phone: Basophil percentageon 2021 Chloride [Moles/Vol] 106 mmol/L 98-107 [facility] Work Phone: Glucose [Mass/Vol] 100 mg/dL 74-[address] [facility] Work Phone: Comment on above: Fasting Glucose resu lt from 100 to 125 mg/dL suggests IMPAIRED HOMEOSTASIS per A.D.A. criteria. Potassium [Moles/Vol] 3.7 mmol/L 3.5-5.1 [facility] Work Phone: Sodium [Moles/Vol] 140 mmol/L 136-[address] [facility] Work Phone: WBC (Bld) [#/Vol] 8.8 10*3/uL 4.4-11.0 [facility] Work Phone: Blood erythrocytes count (nu mber/volume)on 11-04-2021 RBC (Bld) [#/Vol] 4.05 10*6/uL 4.6-6.2 [facility]: Blood hemoglobin measurement (mass/volume)on 11-04-2021 Hemoglobin (Bld) [Mass/Vol] 11.1 g/dL 13.0-16.5 [facility] Work Phone: Blood platelet mean volumeon 11-04-2021 Platelet mean volume (Bld) [Entitic vol] 10.8 fL 6.2-12.0 [facility] Work Phone: Determination of erythrocyte mean corpuscular volume (MCV)on 11-04-2021 MCV (RBC) [Entitic vol] 86.9 fL 80-94 [facility] Work Phone: Hematocrit Auto (Bld) [Volum e fraction]on 11-04-2021 Hematocrit (Bld) [Volume fraction] 35.2 % 40-54 [facility] Work Phone: INR in Blood by Coagulation assayon 11-04-2021 INR Coag (Bld) [Relative time] 1.8 {INR} [facility] Work Phone: Laboratory - Chemistry and C hemistry - challengeon 11-04-2021 CO2 [Moles/Vol] 26.0 mmol/L 21.0-32.0 [facility] Work Phone: Urea nitrogen/Creatinine [Mass ratio] 18.3 mg/mg 10-20 [facility] Work Phone: Laboratory - Coagulationon 0 11-04-2021 PT Coag (PPP) [Time] 20.4 s 11.7-14.9 [facility] Work Phone: Laboratory - Hematology and Cell countson 11-04-2021 Erythrocyte distribution width (RBC) [Entitic vol] 48.1 fL 35.1-43.9 [facility] Work Phone: Erythrocyte distribution width (RBC) [Ratio] 15.0 % 11.6-14.6 [facility] Work Phone: MCH (RBC) [Entitic mass] 27.4 pg 27.0-32.0 [facility] Work Phone: MCHC Auto (RBC) [Mass/Vol]on 11-04-2021 MCHC (RBC) [Mass/Vol] 31.5 g/dL 32-36 [facility] Work Phone: No Panel Informationon 11-04 D-Dimer Quantitative (PE/DVT) 0.56 FEU/ug/m 0.27-0.49 [facility] Work Phone: Comment on above: D-Dimer ELEVATED (>0 .49): Additional studies and clinicalassessments are indicated to conclude diagnosis of:Deep Vein Thrombosis (DVT) or Pulmonary Embolism (PE) Estimated GFR (MDRD) Amer 155 mL/min >60 [facility] Work Phone: Comment on above: GFR Calc Estimated GFR (MDRD) Non-Af Amer 128 mL/min >60 [facility] Work Phone: Comment on above: Non- GFR Calc Troponin I High Sensitivity 11 pg/mL 3.0-78.0 [facility] Work Phone: Comment on above: Please Note: New Fadum[place] t Units and Gender Specific Reference Ranges. For more information see Policy Stat Procedure [place] High Sensitivity Troponin (TNIH) and attachments. Platelets bldon 11-04-2021 Platelets (Bld) [#/Vol] 364 10*3/uL 150-450 [facility] Work Phone: Serum or plasma C reactive p rotein measurement (mass/volume)on 11-04-2021 CRP [Mass/Vol] 31.90 mg/L 0.0-3.0 [facility] Work Phone: Comment on above: C-Reactive Protein ( CRP) provides useful information for thediagnosis, therapy and monitoring of inflammatory processesand associated diseases. For the evaluation of Relative Riskfor Cardiovascular Disease, a High Sensitivity CRP (HSCRP)should be ordered. Serum or plasma calcium oral urement (mass/volume)on 11-04-2021 Calcium [Mass/Vol] 9.1 mg/dL 8.5-10.[address] [facility] Work Phone: Serum or plasma creatinine m easurement (mass/volume)on 11-04-2021 Creatinine [Mass/Vol] 0.66 mg/dL 0.70-1.30 [facility] Work Phone: Comment on above: The validity of the calculated GFR & GFRAA in patients over 70 years has not been determined. Clinical correlation is essential. Serum or plasma urea nitroge n measurement (mass/volume)on 11-04-2021 Urea nitrogen [Mass/Vol] 12 mg/dL 7-18 [facility] Work Phone: Thin prep Papanicolaou smear with manual screeningon 11-04-2021 Thin prep Papanicolaou smear with manual screening 8 5-15 [facility] Work Phone: Complete Urinalysison 2021 Appearance (U) Clear Normal Clear [facility] [email or web address] Comment on above: Result Comment: . Performed By: #### C UA2 ####[employer] [place], [place] Bacteria Moderate Abnormal Negative [facility] [email or web address] Comment on above: Result Comment: . Performed By: #### C UA2 ####[employer] [address] [place], [place] Bilirubin,Urine Negative Normal Negative [facility] [email or web address] Comment on above: Result Comment: . Performed By: #### C UA2 ####[employer] [address] [place], [place] Cast, Hyaline Negative Normal Negative [facility] [email or web address] Comment on above: Result Comment: . Performed By: #### C UA2 ####[employer] [address] [place], [place] Color (U) Yellow Normal Lt. Yellow [facility] Comment on above: Result Comment: . Performed By: #### C UA2 ####[place] [id number] [place], [place] Glucose Ql (U) Normal Normal Normal (<70) [facility] Comment on above: Result Comment: . Performed By: #### C UA2 ####[id number] [place], [place] Ketone,Urine Negative Normal Negative [facility] Comment on above: Result Comment: . Performed By: #### C UA2 ####[place] [address] [place], [place] Leukocytes,Urine Negative Normal Negative [facility] Comment on above: Result Comment: . Performed By: #### C UA2 ####[place] [address] [place], [place] Mucous Threads Few Normal Negative [facility] Comment on above: Result Comment: . Performed By: #### C UA2 ####[address] [place], [place] Nitrites,Urine Negative Normal Negative [facility] Comment on above: Result Comment: . Performed By: #### C UA2 ####[place] [address] [place], [place] Occult Blood,Urine 0.1 mg/dL Abnormal Negative [facility] Comment on above: Result Comment: . Performed By: #### C UA2 ####[address] [place], [place] pH,Urine 5.5 Normal 5.0-8.0 [facility] Comment on above: Result Comment: . Performed By: #### C UA2 ####[place] [address] [place], [place] Protein (U) [Mass/Vol] 10 mg/dL Abnormal Negative [facility] Comment on above: Result Comment: . Performed By: #### C UA2 ####[address] [place], [place] RBC, Urine 26 - 50 Abnormal 0-2 [facility] Comment on above: Result Comment: . Performed By: #### C UA2 ####[facility] [id number] [place] [address] Specific [place],Urine 1.023 Normal 1.005 - 1.030 [facility] Comment on above: Result Comment: . Performed By: #### C UA2 ####[facility] [place] [address] Squamous Epithelial Negative Normal 3-5 [facility] Comment on above: Result Comment: . Performed By: #### C UA2 ####[facility] [id number] [place] [address] Urobilinogen,Urine Normal Normal Normal (0-1) [facility] Comment on above: Result Comment: . Performed By: #### C UA2 ####[address] [place] [address] WBC, Urine 0 - 2 Normal 0-5 [facility] Comment on above: Result Comment: . Performed By: #### C UA2 ####[address] [place] [address] Urinalysison 11-01-2021 Appearance (U) Clear Clear NA [...] /[HPF] [facility] Comment on above: . Specific [place], Urine 1.023 [facility] Comment on above: . Squam Epithel, UA Negative 3 - 5 /[HPF] [facility] Comment on above: . Urobilinogen, Urine Normal Normal ( 0-1) mg/dL [facility] Comment on above: . WBC, UA 0-2 0 - 5 /[HPF] [facility] Comment on above: . Test Performed by [facility], [address] [place] [id number] [facility] Basic Metabolic Panelon 06-2 Anion gap [Moles/Vol] 6 mmol/L Normal 3-13 [facility] Comment on above: Performed By: #### P T/AP, TROPN, BMP3, HEMDF #### [address] [address] Calcium [Mass/Vol] 9.1 mg/dL Normal 8.4-10.4 [facility] Comment on above: Performed By: #### P T/AP, TROPN, BMP3, HEMDF #### [address] [address] CO2 [Moles/Vol] 28 mmol/L Normal 22-30 [facility] Comment on above: Performed By: #### P T/AP, TROPN, BMP3, HEMDF #### [address] [address] Glucose [Mass/Vol] 120 mg/dL High 70-100 [facility] Comment on above: Performed By: #### P T/AP, TROPN, BMP3, HEMDF #### [address] [place] [address] Urea nitrogen [Mass/Vol] 17 mg/dL Normal 7-17 [facility] Comment on above: Performed By: #### P T/AP, TROPN, BMP3, HEMDF #### [address] [address] Creatinine [Mass/Vol] 0.65 mg/dL Normal 0.52-1.25 [facility] Comment on above: Performed By: #### P T/AP, TROPN, BMP3, HEMDF #### [address] eGFR OTHER > 90.0 Normal >60 [facility] Comment on above: Result Comment: KDIG O [...] #### P T/AP, TROPN, BMP3, HEMDF #### [address] [place], [place] GFR/1.73 sq M.predicted among blacks MDRD (S/P/Bld) [Vol rate/Area] mL/min/{1.73_m2} Normal >60 [facility] Comment on above: Performed By: #### P T/AP, TROPN, BMP3, HEMDF #### [address] Potassium [Moles/Vol] 3.8 mmol/L Normal 3.5-5.1 [facility] Comment on above: Performed By: #### P T/AP, TROPN, BMP3, HEMDF #### [address] Chloride [Moles/Vol] 101 mmol/L Normal 98-107 [facility] Comment on above: Performed By: #### P T/AP, TROPN, BMP3, HEMDF #### [address] Sodium [Moles/Vol] 134 mmol/L Low 135-145 [facility] Comment on above: Performed By: #### P T/AP, TROPN, BMP3, HEMDF #### [facility] [address] [place] [address] Anion gap [Moles/Vol] 6 mmol/L 3 - 13 mmol/L [facility] Calcium [Mass/Vol] 9.1 mg/dL 8.4 - 10. 4 mg/dL [facility] Chloride [Moles/Vol] 101 mmol/L 98 - 10 7 mmol/L [facility] CO2 [Moles/Vol] 28 mmol/L 22 - 30 mmol/L [facility] Creatinine [Mass/Vol] 0.65 mg/dL 0.52 - 1.25 mg/dL [facility] EGFR IF NonAfrican [place]er >90.0 >60 mL/min [facility] Comment on above: KDIGO guidelines pro [...] - 17 mg/dL [facility] Test Performed by [facility], [address] [place] [id number] [place] [address] LAB [facility] CBC with Auto Differentialon 10-31-2021 [...] 11.3 g/dL Low 13.0 - 18.0 g/dL [facility] Interpretation and review of laboratory results [...] - 10.7 10*3/uL [facility] Test Performed by [facility], [address] [place] [address] LAB [facility] CR Abdomen APon 10-31-2021 CR Abdomen AP Patient Name: ANDREW SIFUENTES Diagnostic Radiology ACCESSION EXAM DATE/TIME PROCEDURE ORDERING PROVIDER [id number] 10/31/2021 20:36 EDT CR Abdomen AP [id number] -MYRON DURAN CPT code 28688 Reason For Exam (CR Abdomen AP) evp of products & co founder shunt, 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 CHEST PORTABLE [...] Transcribed Date and Time: 10/31/2021 8:49 Normal [facility] CR Chest Portableon 11-01-19 CR Chest Portable Patient Name: ANDREW SIFUENTES Diagnostic Radiology ACCESSION EXAM DATE/TIME PROCEDURE ORDERING PROVIDER [id number] 10/31/2021 20:36 EDT CR Chest Portable [id number] -MYRON DURAN CPT code 55359 Reason For Exam (CR Chest Portable) AMS [...] Transcribed Date and Time: 10/31/2021 8:[address] [facility] [address] HEAD WO CONTRASTon 2021 Patient Name: ANDREW SIFUENTES Computed Tomography ACCESSION EXAM DATE/TIME PROCEDURE ORDERING PROVIDER [id number] 10/31/2021 20:[address] Head or Brain w/o [id number] MYRON GALINDO Contrast CPT code 74651 Reason For Exam (CT Head or Brain w/o Contrast) AMS, previous IMMUNOLOGIST shunt Report Examination: CT Head Clinical Information: AMS, previous IMMUNOLOGIST shunt Comparison: 10/26/2021, MRI 10/27/2021 Findings: Serial [...] J Transcribed Date and Time: 10/31/2021 8:54 [facility] Alan Wong MD - 10/31/2021 [id number] Tomography ACCESSION EXAM DATE/TIME PROCEDURE ORDERING PROVIDER [id number] 10/31/2021 20:[address] Head or Brain w/o [id number] -MYRON DURAN Contrast CPT code 51199 Reason For Exam (CT Head or Brain w/o Contrast) AMS, previous IMMUNOLOGIST shunt Report Examination: CT Head Clinical Information: AMS, previous IMMUNOLOGIST shunt Comparison: 10/26/2021, MRI 10/27/2021 Findings: Serial [...] Tomography ACCESSION EXAM DATE/TIME PROCEDURE ORDERING PROVIDER [id number] 10/31/2021 20:[address] Head or Brain w/o [id number] -MYRON DURAN Contrast CPT code 87807 Reason For Exam (CT Head or Brain w/o Contrast) AMS, previous IMMUNOLOGIST shunt Report Examination: CT Head Clinical Information: AMS, previous IMMUNOLOGIST shunt Comparison: 10/26/2021, MRI 10/27/2021 Findings: Serial [...] Transcribed Date and Time: 10/31/2021 8:54 Normal [facility] ED Provider Noteon ED Provider Note Emergency Department Encounter [facility] EMERGENCY DEPT Patient: Andrew Sifuentes : [...] is cooperative and calm. According to the usp, he has been more lethargic than normal, [...] [facility] Dante Kim MD 10/31/[address] [facility] ED Provider Note [facility] EMERGENCY [facility]PT EMERGENCY DEPARTMENT ENCOUNTER Pt Name: Andrew Sifuentes Birthdate 1950 Date of evaluation: 10/31/2021 Provider: Myron Duran MD CHIEF COMPLAINT Chief Complaint Patient presents with ? Altered Mental Status Pt presents to ED via [facility] for complaint listed. Pt is from [place] [facility]. Pt's LKW was 1000 hours today. Per [...] have a history of hydrocephalus with a IMMUNOLOGIST shunt. 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 REVIEW OF [...] (HCC) ? Kidney stone ? Neuropathy ? IMMUNOLOGIST (ventriculoperitoneal) shunt status SURGICAL HISTORY Past Surgical [...] of Transportati (more content not included)... Normal [facility] EKG 12 Lead - Chest Painon 0 10-31-2021 [facility] Test Date: 2021-10-31 Pat Name: ANDREW SIFUENTES Department: [facility] Room: 40 Gender: M Sr. Manager: ANDRES : 1950 Requested By: MYRON DURAN Order Number: [id number] Reading MD: Dante Kim Measurements Intervals [place] Rate: 91 P: 41 ND: 154 QRS: 50 QRSD: 147 T: 8 QT: 385 QTc: 474 Interpretive Statements Sinus rhythm Right bundle branch block Electronically Signed On 10-31-2021 20:36:[address] Dante Kim [facility] CARDIOLOGY Datne Kim M D - 10/31/2021 [facility] Test Date: 2021-10-31 Pat Name: ANDREW SIFUENTES Department: [facility] Room: 40 Gender: M Sr. Manager: ANDRES : 1950 Requested By: MYRON DURAN Order Number: [id number] Reading : Dante Kim Measurements Intervals [place] Rate: 91 P: 41 ND: 154 QRS: 50 QRSD: 147 T: 8 QT: 385 QTc: 474 Interpretive Statements Sinus rhythm Right bundle branch block Electronically Signed On 10-31-2021 20:36:25 EDT by Dante Kim [facility] Work Phone: EKG 12 Lead - Chest PainOrde red By: Dante Kim on 10-31-2021 [facility] Work Phone: Hemogram w/ Autodiffon 10-31 Abs Baso Cnt 0.1 10*3/uL Normal 0.0-0.2 [facility] Comment on above: Performed By: #### P T/AP, TROPN, BMP3, HEMDF #### [facility] [address] [place] [address] Abs Neutrophile Cnt 6.0 10*3/uL Normal 1.8-7.0 [facility] Comment on above: Performed By: #### P T/AP, TROPN, BMP3, HEMDF #### [address] [place] [address] Basophils/100 WBC (Bld) 1.1 % Normal 0.0-2.0 [facility] Comment on above: Performed By: #### P T/AP, TROPN, BMP3, HEMDF #### [address] [place] [address] Eosinophils (Bld) [#/Vol] 0.2 10*3/uL Normal 0.0-0.5 [facility] Comment on above: Performed By: #### P T/AP, TROPN, BMP3, HEMDF #### [address] [place] [address] Eosinophils/100 WBC (Bld) 2.3 % Normal 1.0-6.0 [facility] Comment on above: Performed By: #### P T/AP, TROPN, BMP3, HEMDF #### [address] [place] [address] Erythrocyte distribution width (RBC) [Ratio] 17.2 % High 11.5-14.5 [facility] Comment on above: Performed By: #### P T/AP, TROPN, BMP3, HEMDF #### [address] [place] [address] Granulocytes/100 WBC (Bld) 61.8 % Normal 40.0-80.0 [facility] Comment on above: Performed By: #### P T/AP, TROPN, BMP3, HEMDF #### [address] [place], [place] Hematocrit (Bld) [Volume fraction] 35.0 % Low 40.0-52.0 [facility] Comment on above: Performed By: #### P T/AP, TROPN, BMP3, HEMDF #### [address] [place], [place] Hemoglobin (Bld) [Mass/Vol] 11.3 g/dL Low 13.0-18.0 [facility] Comment on above: Performed By: #### P T/AP, TROPN, BMP3, HEMDF #### [address] [place], [place] Lymphocytes (Bld) [#/Vol] 2.8 10*3/uL Normal 1.0-4.3 [facility] Comment on above: Performed By: #### P T/AP, TROPN, BMP3, HEMDF #### [address] [place], [place] Lymphocytes/100 WBC (Bld) 29.2 % Normal 20.0-40.0 [facility] Comment on above: Performed By: #### P T/AP, TROPN, BMP3, HEMDF #### [address] MCH (RBC) [Entitic mass] 27.5 pg Normal 26.0-34.0 [facility] Comment on above: Performed By: #### P T/AP, TROPN, BMP3, HEMDF #### [address] [place] MCHC 32.3 % Normal 32.0-36.0 [facility] Comment on above: Performed By: #### P T/AP, TROPN, BMP3, HEMDF #### [address] [address] [place] MCV (RBC) [Entitic vol] 85.0 fL Normal 80.0-98.0 [facility] Comment on above: Performed By: #### P T/AP, TROPN, BMP3, HEMDF #### [address] [place], [place] Monocytes (Bld) [#/Vol] 0.5 10*3/uL Normal 0.0-0.8 [facility] Comment on above: Performed By: #### P T/AP, TROPN, BMP3, HEMDF #### [address] [place], [place] Monocytes/100 WBC (Bld) 5.6 % Normal 2.0-10.0 [facility] Comment on above: Performed By: #### P T/AP, TROPN, BMP3, HEMDF #### [address] [place], [place] Platelet mean volume (Bld) [Entitic vol] 8.6 fL Normal 7.4-12.4 [facility] Comment on above: Result Comment: MPV is a calculated measurement using platelet volume ratio. Performed By: #### P T/AP, TROPN, BMP3, HEMDF #### [address] [address] [place], [place] Platelets (Bld) [#/Vol] 348 10*3/uL Normal 140-440 [facility] Comment on above: Performed By: #### P T/AP, TROPN, BMP3, HEMDF #### [address] [address] [place], [place] RBC (Bld) [#/Vol] 4.12 10*6/uL Low 4.40-5.90 [facility] Comment on above: Performed By: #### P T/AP, TROPN, BMP3, HEMDF #### [address] WBC (Bld) [#/Vol] 9.7 10*3/uL Normal 3.6-10.7 [facility] Comment on above: Performed By: #### P T/AP, TROPN, BMP3, HEMDF #### [address] [address] [place] [address] Laboratory - Coagulationon 0 10-31-2021 INR Coag (Bld) [Relative time] 2.0 {INR} [facility] Work Phone: Comment on above: Critical Value > 4.0 No Panel Informationon 10-31 Radiology Study observation (narrative) [facility] Work Phone: PROTIME/INR & PTTon 11-01-19 22 aPTT Coag (Bld) [Time] 39.2 s High 20.0 - 30.5 s [facility] Comment on above: NOTE: The therapeuti c time for Heparin anticoagulation, based on Xa activity inhibition, is an APTT of 46-80 seconds. INR Coag (Bld) [Relative time] 1.9 {INR} High [facility] Comment on above: Recommended Anticoag ulant [...] Interpretation and review of laboratory results Abnormal [facility] PT Coag (PPP) [Time] 19.8 s High 9.0 - 12.0 s [facility] Comment on above: . Test Performed by [facility], [address] [place] [address] [facility] Protime AND APTTon aPTT Coag (Bld) [Time] 39.2 s High 20.0-30.5 [facility] Comment on above: Result Comment: NOTE : The therapeutic time for Heparin anticoagulation, based on Xa activity inhibition, is an APTT of 46-80 seconds. Performed By: #### P T/AP, TROPN, BMP3, HEMDF #### [address] [address] INR 1.9 High 0.9-1.1 [facility] Comment on above: Result Comment: Harry mmended [...] #### P T/AP, TROPN, BMP3, HEMDF #### [address] [address] PT Coag (PPP) [Time] 19.8 s High 9.0-12.0 [facility] Comment on above: Result Comment: . Performed By: #### P T/AP, TROPN, BMP3, HEMDF #### [address] [address] Troponin Ion 10-31-2021 Troponin I.cardiac [Mass/Vol] ng/mL Normal 0.000-0.034 [facility] Comment on above: Result Comment: . Performed By: #### P T/AP, TROPN, BMP3, HEMDF #### [address] [address] Troponin x1on 10-31-2021 Troponin I.cardiac [Mass/Vol] ng/mL 0.000 - 0.034 ng/mL [facility] Comment on above: . Test Performed by [facility], [address] [place] [id number] [place] [address] LAB [facility] Whole blood prothrombin time on 10-31-2021 PT Coag (Bld) [Time] 23.7 s 11.7-14.9 [facility] Work Phone: XR ABDOMEN (KUB) (SINGLE AP VIEW)on 10-31-2021 Patient Name: ANDREW SIFUENTES Diagnostic Radiology ACCESSION EXAM DATE/TIME PROCEDURE ORDERING PROVIDER [id number] 10/31/2021 20:36 EDT CR Abdomen AP [id number] -MYRON DURAN CPT code 49352 Reason For Exam (CR Abdomen AP) evp of products & co founder shunt, 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 CHEST PORTABLE [...] WENDELL Transcribed Date and Time: 10/31/2021 8:49 [facility] Huang Reynoso MD - 10/31/2021 Patient Name: ANDREW SIFUENTES Diagnostic Radiology ACCESSION EXAM DATE/TIME PROCEDURE ORDERING PROVIDER [id number] 10/31/2021 20:36 EDT CR Abdomen AP [id number] MYRON GALINDO CPT code 13393 Reason For Exam (CR Abdomen AP) evp of products & co founder shunt, 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 CHEST PORTABLE [...] CHEST PORTABLEon 11-01-19 Patient Name: ANDREW SIFUENTES Diagnostic Radiology ACCESSION EXAM DATE/TIME PROCEDURE ORDERING PROVIDER [id number] 10/31/2021 20:36 EDT CR Chest Portable [id number] MYRON GALINDO CPT code 20025 Reason For Exam (CR Chest Portable) AMS [...] Transcribed Date and Time: 10/31/2021 8:49 [facility] Meyers MD - 10/31/2021 Patient Name: ANDREW SIFUENTES Diagnostic Radiology ACCESSION EXAM DATE/TIME PROCEDURE ORDERING PROVIDER [id number] 10/31/2021 20:36 EDT CR Chest Portable [id number] -MYRON DURAN CPT code 50473 Reason For Exam (CR Chest Portable) AMS [...] WENDELL Transcribed Date and Time: 10/31/2021 8:49 [facility] Work Phone: XR CHEST PORTABLEOrdered By: Huang Reynoso on 10-31-2021 [facility] Work Phone: Lupus Anticoagulanton 2021 DRVVT Confirmation Test Not Applicable Negative ratio [facility] Work Phone: dRVVT Screen 38 [facility] Work Phone: Hex Phosph Neut Test Not Applicable Negative NA [facility] Work Phone: [phone] Interpretation and review of laboratory results Abnormal [facility] Work Phone: [phone] LUPUS INTERPRETATION See Note [facility] Work Phone: [phone] Comment on above: Lupus anticoagulant not detected. [...] has not already been performed. Performed by [facility], [address] [place] [address] [email or web address], Quiana Castro MD - Lab. Director Platelet Neutralization Not Applicable Negative NA [facility] Work Phone: [phone] PTT-D Heparin Neutralized 48 [facility] Work Phone: [phone] PTT-LA 55 High [facility] Work Phone: [phone] Reptilase Tm 17.6 <=21.9 sec [facility] Work Phone: [phone] Thrombin Time 25.3 High [facility] Work Phone: [phone] [facility] Work Phone: [phone] Lupus Anticoagulant Reflexiv e Panelon 10-29-2021 aPTT Coag (Bld) [Time] 55 s High 32-48 [facility] Comment on above: Performed By: #### C OVAG #### [facility] [address] [place] [address] aPTT Coag (Bld) [Time] 48 s Normal 32-48 [facility] Comment on above: Performed By: #### C OVAG #### [facility] [address] [place] [address] DRVVT 1:1 Mix Not Applicable Normal 33-44 [facility] Work Phone: [phone] Comment on above: Performed By: #### C OVAG #### [facility] [address] [place] [address] dRVVT Confirmation Not Applicable Normal Negative [facility] Comment on above: Performed By: #### C OVAG #### [facility] [address] [place] [address] dRVVT Screen 38 sec Normal 33-44 [facility] Comment on above: Performed By: #### C OVAG #### [facility] [address] [place] [address] [employer] Phospholipid Neutral Reflex Not Applicable Normal Negative [facility] Comment on above: Performed By: #### C OVAG #### [facility] [address] [place] [address] Lupus Anticoagulant Interpretation See Note Normal [facility] Comment on above: Result Comment: Lupu s [...] has not already been performed. Performed by [facility], [address] [place] [address] [email or web address], Quiana Castro MD - Lab. Director Performed By: #### C OVAG #### [facility] [address] [place] [address] Platelet Neutralization (PTT-D, Confirm) Not Applicable Normal Negative [facility] Comment on above: Performed By: #### C OVAG #### [facility] [address] [place] [address] PT Coag (PPP) [Time] 14.7 s Normal 12.0-15.5 [facility] Work Phone: Comment on above: Performed By: #### C OVAG #### [facility] [address] [place] [address] PTT-D 1:1 Mix Not Applicable Normal 32-48 [facility] Work Phone: Comment on above: Performed By: #### C OVAG #### [facility] [address] [place] [address] Reptilase Time 17.6 sec Normal <=21.9 [facility] Comment on above: Performed By: #### C OVAG #### [facility] [address] [place] [address] Thrombin Time 25.3 sec High 14.7-19.5 [facility] Comment on above: Performed By: #### C OVAG #### [facility] [address] [facility] [place] [address] POCT COVID-19, Antigenon SARS-CoV-2 Nucleocapsid Antigen Negative Negative [facility] Comment on above: A negative result does not rule out the possibility of SARS-CoV-2 infection. NAAT-based methods should be considered for symptomatic patients presenting greater than seven days after onset of symptoms. Method: Lateral flow immunoassay. Fact sheets for healthcare providers and patients can be found at the following sites: https://www.fda.gov/media/965213/download https://www.fda.gov/media/046685/download Test Performed by [facility], [address] [place], [place] [id number] [place] [address] LAB [facility] Prothrombin Timeon 2 INR 2.7 High 0.9-1.1 [facility] Comment on above: Result Comment: Harry mmended [...] Infarction Performed By: #### P T #### [facility] [address] [place] [address] PT Coag (PPP) [Time] 27.4 s High 9.0-12.0 [facility] Comment on above: Result Comment: . Performed By: #### P T #### [facility] [address] [place] [address] Protime-INRon 10-29-2021 INR Coag (Bld) [Relative time] 2.7 {INR} High [facility] Work Phone: Comment on above: Recommended [...] Interpretation and review of laboratory results Abnormal [facility] Work Phone: PT Coag (PPP) [Time] 27.4 s High 9.0 - 12.0 s [facility] Work Phone: Comment on above: . Test Performed by [facility], [address] [place], [place] [id number] [place] [address] LAB [facility] Work Phone: SARS-CoV-2 Antigenon 022 SARS-CoV-2 Antigen Negative Normal Negative [facility] Comment on above: Result Comment: A negative result does not rule out the possibility of SARS-CoV-2 infection. NAAT-based methods should be considered for symptomatic patients presenting greater than seven days after onset of symptoms. Method: Lateral flow immunoassay. Fact sheets for healthcare providers and patients can be found at the following sites: https://www.fda.gov/media/516943/download https://www.fda.gov/media/273548/download Performed By: #### C OVAG #### [facility] [address] [place] [address] CBCon 10-28-2021 Hematocrit (Bld) [Volume fraction] 33.4 % Low 40.0 - 52.0 % [facility] Work Phone: Hemoglobin (Bld) [Mass/Vol] 11.0 g/dL Low 13.0 - 18.0 g/dL [facility] Work Phone: [phone] Interpretation and review of laboratory results Abnormal [facility] Work Phone: MCH (RBC) [Entitic mass] 27.8 pg 26.0 - 34.0 pg [facility] Work Phone: 1 MCHC (RBC) [Mass/Vol] 32.8 % 32.0 - 36.0 % [facility] Work Phone: MCV (RBC) [Entitic vol] 84.8 fL 80.0 - 98.0 fL [facility] Work Phone: Platelet distribution width (Bld) [Ratio] 17.1 % High 11.5 - 14.5 % [facility] Work Phone: Platelet mean volume (Bld) [Entitic vol] 8.3 fL 7.4 - 12.4 fL [facility] Work Phone: Comment on above: MPV is a calculated measurement using platelet volume ratio. Platelets (Bld) [#/Vol] 344 10*3/uL 140 - 440 10*3/uL [facility] Work Phone: 1) RBC (Bld) [#/Vol] 3.94 10*6/uL Low 4.40 - 5.9 0 10*6/uL [facility] Work Phone: WBC (Bld) [#/Vol] 10.0 10*3/uL 3.6 - 10.7 10*3/uL [facility] Work Phone: Test Performed by [facility], [address] [place] [address] [facility] LAB [facility] Work Phone: Comp Metabolic Panelon 10-28 ALP [Catalytic activity/Vol] 103 U/L Normal 38-126 [facility] Comment on above: Performed By: #### C A19O, LUPUS #### The performing lab is in the report. #### NSEO #### [facility] #### HEMDF, LDH3, BMP3, MG3, PT, CEA2 #### [place] [address] [place] [address] #### B2GPM, B2GPA, B2GPG #### [address] ALT [Catalytic activity/Vol] 26 U/L Normal 0-49 [facility] Comment on above: Result Comment: The ALT test is performed by an updated assay method. Please note that the reference intervals have been changed and are now sex specific. Performed By: #### C A19O, LUPUS #### The performing lab is in the report. #### NSEO #### [facility] #### HEMDF, LDH3, BMP3, MG3, PT, CEA2 #### [address] [place] [address] #### B2GPM, B2GPA, B2GPG #### [address] AST [Catalytic activity/Vol] 24 U/L Normal 15-46 [facility] Comment on above: Performed By: #### C A19O, LUPUS #### The performing lab is in the report. #### NSEO #### [facility] #### HEMDF, LDH3, BMP3, MG3, PT, CEA2 #### [address] [place] [address] #### B2GPM, B2GPA, B2GPG #### [address] Calcium [Mass/Vol] 9.1 mg/dL Normal 8.4-10.4 [facility] Comment on above: Performed By: #### C A19O, LUPUS #### The performing lab is in the report. #### NSEO #### [facility] #### HEMDF, LDH3, BMP3, MG3, PT, CEA2 #### [address] [place] [address] #### B2GPM, B2GPA, B2GPG #### [address] Glucose [Mass/Vol] 117 mg/dL High 70-100 [facility] Comment on above: Performed By: #### C A19O, LUPUS #### The performing lab is in the report. #### NSEO #### [facility] #### HEMDF, LDH3, BMP3, MG3, PT, CEA2 #### [place] [address] [facility] [place] [address] #### B2GPM, B2GPA, B2GPG #### [address] Urea nitrogen [Mass/Vol] 16 mg/dL Normal 7-17 [facility] Comment on above: Performed By: #### C A19O, LUPUS #### The performing lab is in the report. #### NSEO #### [facility] #### HEMDF, LDH3, BMP3, MG3, PT, CEA2 #### [place] [address] [facility] [place] [address] #### B2GPM, B2GPA, B2GPG #### [address] Anion gap [Moles/Vol] 5 mmol/L Normal 3-13 [facility] Comment on above: Performed By: #### C A19O, LUPUS #### The performing lab is in the report. #### NSEO #### [facility] #### HEMDF, LDH3, BMP3, MG3, PT, CEA2 #### [address] [facility] [place] [address] #### B2GPM, B2GPA, B2GPG #### [address] Bilirubin [Mass/Vol] 0.4 mg/dL Normal 0.2-1.3 [facility] Comment on above: Performed By: #### C A19O, LUPUS #### The performing lab is in the report. #### NSEO #### [facility] #### HEMDF, LDH3, BMP3, MG3, PT, CEA2 #### [facility] [address] [place] [address] #### B2GPM, B2GPA, B2GPG #### [address] CO2 [Moles/Vol] 29 mmol/L Normal 22-30 [facility] Comment on above: Performed By: #### C A19O, LUPUS #### The performing lab is in the report. #### NSEO #### [facility] #### HEMDF, LDH3, BMP3, MG3, PT, CEA2 #### [facility] [address] [place] [address] #### B2GPM, B2GPA, B2GPG #### [address] Creatinine [Mass/Vol] 0.71 mg/dL Normal 0.52-1.25 [facility] Comment on above: Performed By: #### C A19O, LUPUS #### The performing lab is in the report. #### NSEO #### [facility] #### HEMDF, LDH3, BMP3, MG3, PT, CEA2 #### [place] [address] [place] [address] #### B2GPM, B2GPA, B2GPG #### [address] eGFR OTHER > 90.0 Normal >60 [facility] Comment on above: Result Comment: KDIG O [...] tubular creatinine secretion. Performed By: #### C A19Elpidio, LUPUS #### The performing lab is in the report. #### NSEO #### [facility] #### HEMDF, LDH3, BMP3, MG3, PT, CEA2 #### [facility] [address] [place] [address] #### B2GPM, B2GPA, B2GPG #### [address] GFR/1.73 sq M.predicted among blacks MDRD (S/P/Bld) [Vol rate/Area] mL/min/{1.73_m2} Normal >60 [facility] Comment on above: Performed By: #### C Sena9O, LUPUS #### The performing lab is in the report. #### NSEO #### [facility] #### HEMDF, LDH3, BMP3, MG3, PT, CEA2 #### [facility] [address] [place] [address] #### B2GPM, B2GPA, B2GPG #### [address] Protein [Mass/Vol] 7.1 g/dL Normal 6.3-8.2 [facility] Comment on above: Performed By: #### C A19O, LUPUS #### The performing lab is in the report. #### NSEO #### [facility] #### HEMDF, LDH3, BMP3, MG3, PT, CEA2 #### [facility] [address] [place] [address] #### B2GPM, B2GPA, B2GPG #### [address] Potassium [Moles/Vol] 3.5 mmol/L Normal 3.5-5.1 [facility] Comment on above: Performed By: #### C A19O, LUPUS #### The performing lab is in the report. #### NSEO #### [facility] #### HEMDF, LDH3, BMP3, MG3, PT, CEA2 #### [place] [address] [place] [address] #### B2GPM, B2GPA, B2GPG #### [address] Sodium [Moles/Vol] 138 mmol/L Normal 135-145 [facility] Comment on above: Performed By: #### C A19O, LUPUS #### The performing lab is in the report. #### NSEO #### [facility] #### HEMDF, LDH3, BMP3, MG3, PT, CEA2 #### [address] [place] #### B2GPM, B2GPA, B2GPG #### [address] Albumin [Mass/Vol] 3.7 g/dL Normal 3.5-5.0 [facility] Comment on above: Performed By: #### C A19O, LUPUS #### The performing lab is in the report. #### NSEO #### [facility] #### HEMDF, LDH3, BMP3, MG3, PT, CEA2 #### [address] [place] #### B2GPM, B2GPA, B2GPG #### [address] Chloride [Moles/Vol] 104 mmol/L Normal 98-107 [facility] Comment on above: Performed By: #### C A19O, LUPUS #### The performing lab is in the report. #### NSEO #### [facility] #### HEMDF, LDH3, BMP3, MG3, PT, CEA2 #### [address] [place] #### B2GPM, B2GPA, B2GPG #### [address] [place] [address] Comprehensive Metabolic Pane kiel 10-28-2021 Albumin [Mass/Vol] 3.7 g/dL 3.5 - 5.0 g/dL [facility] Work Phone: [phone] ALP (Bld) [Catalytic activity/Vol] 103 U/L 38 - 126 U/L [facility] Work Phone: [phone] ALT [Catalytic activity/Vol] 26 U/L 0 - 49 U/L [facility] Work Phone: [phone] Comment on above: The ALT test is perf ormed by an updated assay method. Please note that the reference intervals have been changed and are now sex specific. Anion gap [Moles/Vol] 5 mmol/L 3 - 13 mmol/L [facility] Work Phone: [phone] AST [Catalytic activity/Vol] 24 U/L 15 - 46 U/L [facility] Work Phone: [phone] Bilirubin [Mass/Vol] 0.4 mg/dL 0.2 - 1 .3 mg/dL [facility] Work Phone: [phone] Calcium [Mass/Vol] 9.1 mg/dL 8.4 - 10. 4 mg/dL [facility] Work Phone: [phone] Chloride [Moles/Vol] 104 mmol/L 98 - 10 7 mmol/L [facility] Work Phone: [phone] CO2 [Moles/Vol] 29 mmol/L 22 - 30 mmol/L [facility] Work Phone: [phone] Creatinine [Mass/Vol] 0.71 mg/dL 0.52 - 1.25 mg/dL [facility] Work Phone: [phone] EGFR IF NonAfrican [place]er >90.0 >60 mL/min [facility] Work Phone: [phone] Comment on above: KDIGO guidelines pro vide [...] fraction] 7.1 g/dL 6.3 - 8.2 g/dL [facility] Work Phone: GFR/1.73 sq M.predicted among blacks MDRD (S/P/Bld) [Vol rate/Area] mL/min/{1.73_m2} >60 mL/min [facility] Work Phone: Glucose [Mass/Vol] 117 mg/dL High 70 - 100 mg/dL [facility] Work Phone: Interpretation and review of laboratory results Abnormal [facility] Work Phone: [phone] Potassium [Moles/Vol] 3.5 mmol/L 3.5 - 5.1 mmol/L [facility] Work Phone: Sodium [Moles/Vol] 138 mmol/L 135 - 145 mmol/L [facility] Work Phone: Urea nitrogen (BldV) [Mass/Vol] 16 mg/dL 7 - 17 mg/dL [facility] Work Phone: Test Performed by [facility], [address] [place], [place] [id number] [place] [address] LAB [facility] Work Phone: Hemogramon 10-28-2021 Erythrocyte distribution width (RBC) [Ratio] 17.1 % High 11.5-14.5 [facility] Comment on above: Performed By: #### C A19O, LUPUS #### The performing lab is in the report. #### NSEO #### [facility] #### HEMDF, LDH3, BMP3, MG3, PT, CEA2 #### [facility] [address] [place] [address] #### B2GPM, B2GPA, B2GPG #### [address] Hematocrit (Bld) [Volume fraction] 33.4 % Low 40.0-52.0 [facility] Comment on above: Performed By: #### C A19O, LUPUS #### The performing lab is in the report. #### NSEO #### [facility] #### HEMDF, LDH3, BMP3, MG3, PT, CEA2 #### [facility] [address] [place], [place] #### B2GPM, B2GPA, B2GPG #### [address] Hemoglobin (Bld) [Mass/Vol] 11.0 g/dL Low 13.0-18.0 [facility] Comment on above: Performed By: #### C A19O, LUPUS #### The performing lab is in the report. #### NSEO #### [facility] #### HEMDF, LDH3, BMP3, MG3, PT, CEA2 #### [facility] [address] [place], [place] #### B2GPM, B2GPA, B2GPG #### [address] MCH (RBC) [Entitic mass] 27.8 pg Normal 26.0-34.0 [facility] Comment on above: Performed By: #### C A19O, LUPUS #### The performing lab is in the report. #### NSEO #### [facility] #### HEMDF, LDH3, BMP3, MG3, PT, CEA2 #### [facility] [address] [place], [place] #### B2GPM, B2GPA, B2GPG #### [address] MCHC 32.8 % Normal 32.0-36.0 [facility] Comment on above: Performed By: #### C A19O, LUPUS #### The performing lab is in the report. #### NSEO #### [facility] #### HEMDF, LDH3, BMP3, MG3, PT, CEA2 #### [address] [place] [address] #### B2GPM, B2GPA, B2GPG #### [address] MCV (RBC) [Entitic vol] 84.8 fL Normal 80.0-98.0 [facility] Comment on above: Performed By: #### C A19O, LUPUS #### The performing lab is in the report. #### NSEO #### [facility] #### HEMDF, LDH3, BMP3, MG3, PT, CEA2 #### [address] [place] #### B2GPM, B2GPA, B2GPG #### [address] Platelet mean volume (Bld) [Entitic vol] 8.3 fL Normal 7.4-12.4 [facility] Comment on above: Result Comment: MPV is a calculated measurement using platelet volume ratio. Performed By: #### C A19O, LUPUS #### The performing lab is in the report. #### NSEO #### [facility] #### HEMDF, LDH3, BMP3, MG3, PT, CEA2 #### [address] [place] #### B2GPM, B2GPA, B2GPG #### [address] Platelets (Bld) [#/Vol] 344 10*3/uL Normal 140-440 [facility] Comment on above: Performed By: #### C A19O, LUPUS #### The performing lab is in the report. #### NSEO #### [facility] #### HEMDF, LDH3, BMP3, MG3, PT, CEA2 #### [address] [place] [address] #### B2GPM, B2GPA, B2GPG #### [address] RBC (Bld) [#/Vol] 3.94 10*6/uL Low 4.40-5.90 [facility] Comment on above: Performed By: #### C A19O, LUPUS #### The performing lab is in the report. #### NSEO #### [facility] #### HEMDF, LDH3, BMP3, MG3, PT, CEA2 #### [place] [address] [place] [address] #### B2GPM, B2GPA, B2GPG #### [address] WBC (Bld) [#/Vol] 10.0 10*3/uL Normal 3.6-10.7 [facility] Comment on above: Performed By: #### C A19O, LUPUS #### The performing lab is in the report. #### NSEO #### [facility] #### HEMDF, LDH3, BMP3, MG3, PT, CEA2 #### [place] [address] [place] [address] #### B2GPM, B2GPA, B2GPG #### [address] Neuron Specific Enolaseon Neuron Specific Enolase 20.8 Normal [facility] Comment on above: Result Comment: Neur on Specific Enolase, Serum 20.8 ng/mL H (Ref Interval: <=12.7) NSE and Hgb are elevated in the specimen. The elevated NSE may be a result of hemolysis as NSE is expressed in red blood cells. Interpret results with caution. INTERPRETIVE INFORMATION: Neuron Specific Enolase in Serum This assay is performed using the [employer] NSE Kryptor Immunoassay. Results obtained with different assay methods or kits cannot be used interchangeably. Results cannot be interpreted as absolute evidence of the presence or absence of malignant disease. This test was developed and its performance characteristics determined by [employer]. It has not been cleared or approved by the [place] Food and Drug Administration. This test was performed in a CLIA certified laboratory and is intended for clinical purposes. Performed By: #### C OVAG #### [facility] [address] [place] [address] Neuron specific enolase (NSE )on 10-28-2021 Neuron Specific Enolase 20.8 [facility] Work Phone: Comment on above: Neuron Specific Enol ase, Serum 20.8 ng/mL H (Ref Interval: <=12.7) NSE and Hgb are elevated in the specimen. The elevated NSE may be a result of hemolysis as NSE is expressed in red blood cells. Interpret results with caution. INTERPRETIVE INFORMATION: Neuron Specific Enolase in Serum This assay is performed using the GuveraS NSE Kryptor Immunoassay. Results obtained with different assay methods or kits cannot be used interchangeably. Results cannot be interpreted as absolute evidence of the presence or absence of malignant disease. This test was developed and its performance characteristics determined by [facility]. It has not been cleared or approved by the US Food and Drug Administration. This test was performed in a CLIA certified laboratory and is intended for clinical purposes. 1 [facility] Work Phone: Prothrombin Timeon 2 INR 3.1 High 0.9-1.1 [facility] Comment on above: Result Comment: Harry mmended [...] is in the report. #### NSEO #### [facility] #### HEMDF, LDH3, BMP3, MG3, PT, CEA2 #### [facility] [address] [place] [address] #### B2GPM, B2GPA, B2GPG #### [facility] [address] [place] [address] PT Coag (PPP) [Time] 30.8 s High 9.0-12.0 [facility] Comment on above: Result Comment: . Performed By: #### C A19O, LUPUS #### The performing lab is in the report. #### NSEO #### [facility] #### HEMDF, LDH3, BMP3, MG3, PT, CEA2 #### [facility] [address] [place] [address] #### B2GPM, B2GPA, B2GPG #### [facility] [address] [place] [address] Protime-INRon 10-28-2021 INR Coag (Bld) [Relative time] 3.1 {INR} High [facility] Work Phone: Comment on above: Recommended [...] Interpretation and review of laboratory results Abnormal [facility] Work Phone: PT Coag (PPP) [Time] 30.8 s High 9.0 - 12.0 s [facility] Work Phone: Comment on above: . Test Performed by [facility], [address], [place], [place] [address] [place] [address] LAB [facility] Work Phone: MRI BRAIN WO CONTRASTon 10-06 Patient Name: ANDREW SIFUENTES Magnetic Resonance Imaging ACCESSION EXAM DATE/TIME PROCEDURE ORDERING PROVIDER [id number] 10/27/2021 13:14 EDT MRI Brain w/o Contrast UNASSIGNED, UNASSIGNED CPT code 98901 Reason For Exam (MRI Brain w/o Contrast) stroke Patient has IMMUNOLOGIST shunt in place, please follow Radiology protocol [...] OSAMA Transcribed Date and Time: 10/27/2021 2:39 GUY ARMENDARIZ [facility] Venus Loyd MD - 10/27/2021 Patient Name: ANDRWE SIFUENTES [facility] Imaging ACCESSION EXAM DATE/TIME PROCEDURE ORDERING PROVIDER [id number] 10/27/2021 13:14 EDT MRI Brain w/o Contrast UNASSIGNED, UNASSIGNED CPT code 46210 Reason For Exam (MRI Brain w/o Contrast) stroke Patient has IMMUNOLOGIST shunt in place, please follow Radiology protocol [...] OSAMA Transcribed Date and Time: 10/27/2021 2:39 [facility] Work Phone: [facility] Work Phone: MRI Brain w/o Contraston MRI Brain w/o Contrast Patient Name: ANDREW VELAZQUEZ Magnetic Resonance Imaging ACCESSION EXAM DATE/TIME PROCEDURE ORDERING PROVIDER [id number] 10/27/2021 13:14 EDT MRI Brain w/o Contrast UNASSIGNED, UNASSIGNED CPT code 34214 Reason For Exam (MRI Brain w/o Contrast) stroke Patient has IMMUNOLOGIST shunt in place, please follow Radiology protocol [...] OSAMA Transcribed Date and Time: 10/27/2021 2:39 Normal [facility] Prothrombin Timeon 2 INR 2.1 High 0.9-1.1 [facility] Comment on above: Result Comment: Harry mmended [...] Infarction Performed By: #### P T #### [facility] [address] [place] [address] PT Coag (PPP) [Time] 21.9 s High 9.0-12.0 [facility] Work Phone: Comment on above: . Result Comment: . Performed By: #### P T #### [facility] [address] [place] [address] Protime-INRon 10-27-2021 INR Coag (Bld) [Relative time] 2.1 {INR} High [facility] Work Phone: Comment on above: Recommended [...] Interpretation and review of laboratory results Abnormal [facility] Work Phone: Test Performed by [facility], [address] [place], [place] [address] [facility] Work Phone: CT HEAD WO CONTRASTon 2021 Patient Name: ANDREW LARSEN Computed Tomography ACCESSION EXAM DATE/TIME PROCEDURE ORDERING PROVIDER [id number] 10/26/2021 11:[address] Head or Brain w/o EDWIN, CLINICAL OPERATIONS LEADER, SARINA Contrast CPT code 85744 Reason For Exam (CT Head or Brain w/o Contrast) hydrocephalus. thank you Report CLINICAL INFORMATION: Hydrocephalus. Shunt. 3 mm axial cuts through the head are obtained without IV contrast. The examination is compared to a previous study dated 06/29/2014. FINDINGS: Old IMMUNOLOGIST shunt tubing is noted bilaterally. The new [...] are clear. IMPRESSION: 1. Old and new IMMUNOLOGIST shunt tubing. 2. No hydrocephalus. 3. Atrophy and evidence of small-vessel ischemic disease. 4. No CT evidence of an acute intracranial process. Report Dictated on --- Final --- Dictating Physician: MD SOLANO JEFFREY Signed Date and Time: 10/26/2021 11:42 am Signed by: MD SOLANO JEFFREY Transcribed Date and Time: 10/26/2021 11:43 GUY ERAZOMETHODIST [facility] Albert Solano MD - 10/26/2021 Patient Name: ANDREW SIFUENTES Computed Tomography ACCESSION EXAM DATE/TIME PROCEDURE ORDERING PROVIDER [id number] 10/26/2021 11:[address] Head or Brain w/o EDWIN, CLINICAL OPERATIONS LEADER, SARINA Contrast CPT code 62211 Reason For Exam (CT Head or Brain w/o Contrast) hydrocephalus. thank you Report CLINICAL INFORMATION: Hydrocephalus. Shunt. 3 mm axial cuts through the head are obtained without IV contrast. The examination is compared to a previous study dated 06/29/2014. FINDINGS: Old IMMUNOLOGIST shunt tubing is noted bilaterally. The new [...] are clear. IMPRESSION: 1. Old and new IMMUNOLOGIST shunt tubing. 2. No hydrocephalus. 3. Atrophy [...] Brain w/o Contrast Patient [facility]: [id number] Tomography ACCESSION EXAM DATE/TIME PROCEDURE ORDERING PROVIDER [id number] 10/26/2021 11:[address] Head or Brain w/o JUNIE PINEDA, SARINA Contrast CPT code 04534 Reason For Exam (CT Head or Brain w/o Contrast) hydrocephalus. thank you Report CLINICAL INFORMATION: Hydrocephalus. Shunt. 3 mm axial cuts through the head are obtained without IV contrast. The examination is compared to a previous study dated 06/29/2014. FINDINGS: Old IMMUNOLOGIST shunt tubing is noted bilaterally. The new [...] are clear. IMPRESSION: 1. Old and new IMMUNOLOGIST shunt tubing. 2. No hydrocephalus. 3. Atrophy and evidence of small-vessel ischemic disease. 4. No CT evidence of an acute intracranial process. Report Dictated on Final Dictating Physician: MD SOLANO JEFFREY Signed Date and Time: 10/26/2021 11:42 am Signed by: MD SOLANO JEFFREY Transcribed Date and Time: 10/26/2021 11:43 Normal [facility] EEG awake and asleepon 10-26 Bony Tompkins MD 10/26/2021 4:[address] [facility] [address] [place] [address] ROUTINE EEG REPORT Patient Name: Andrew Sifuentes : 1950 Date of Study: 10/26/2021 Duration Recorded: 23 minutes EEG#: [id number] LINE SUPERVISOR: CASTRO PROVIDER REQUESTING STUDY: Dr. Barreto REASON FOR EXAM: seizures HISTORY: Andrew Sifuentes is a 71 y.o. male with history of obstructive hydrocephalus s/p IMMUNOLOGIST shunt in 1987, needing multiple revisions and [...] normal limits and both old and new IMMUNOLOGIST shunt tubing noted. At present patient is awake, follows commands, was able to tell his name, and that he was in hospital but not oriented to time. Per documentation patient had NCSE in May 2021, was on Vimpat, but it was discontinued as there was no evidence of recurrent seizures in July 2021 by Neurology at [facility], per daughter patient was on Dilantin for 31 yrs. Per daughter patient had seizures in the past and also felt he had staring episodes this morning. Per daughter patient has been essentially bed bound in [place] since May 2021 but prior to that [...] study with video was carried out at [facility]. Scalp electrodes were positioned in person by an system technologist, following patient education, according to the 10-20 International system of electrode placement and maintained for integrity and quality of the recording. EEG data with video was recorded continuously and digitally stored. The system technologist reviewed all automated detections and manual [...] No normal vari (more content not included)... [facility] Work Phone: [facility] Work Phone: No Panel Informationon 10-26 Radiology Study observation (narrative) [facility] Work Phone: Prothrombin Timeon 2 INR 1.9 High 0.9-1.1 [facility] Comment on above: Result Comment: Harry [...] Infarction Performed By: #### C OVAG #### [facility] [address] [place] [address] PT Coag (PPP) [Time] 19.7 s High 9.0-12.0 [facility] Comment on above: Result Comment: . Performed By: #### C OVAG #### [facility] [address] [place] [address] Protime-INRon 10-26-2021 INR Coag (Bld) [Relative time] 1.9 {INR} High [facility] Work Phone: Comment on above: Recommended [...] Interpretation and review of laboratory results Abnormal [facility] Work Phone: PT Coag (PPP) [Time] 19.7 s High 9.0 - 12.0 s [facility] Work Phone: Comment on above: . Test Performed by [facility] 1 [facility], [address] [place], [place] [address] [facility] Work Phone: CA 19-9on 10-25-2021 CA 19-9 17 U/mL Normal <=35 [facility] Work Phone: Comment on above: INTERPRETIVE [...] or absence of malignant disease. Performed By: [facility] [address] [id number] Hand Profiler: Quiana Castro MD Result Comment: INTE RPRETIVE [...] or absence of malignant disease. Performed By: [facility] [address] [id number] Hand Profiler: Quiana Castro MD Performed By: #### C OVAG #### [facility] [email or web address] [address] [place] [address] Cancer Antigen 19-9on 2021 [facility] Work Phone: Prothrombin Timeon INR 1.5 High 0.9-1.1 [facility] [email or web address] Comment on above: Result Comment: Harry mmended [...] Infarction Performed By: #### P T #### [facility] [email or web address] [address] [place] [address] PT Coag (PPP) [Time] 15.6 s High 9.0-12.0 [employer] [email or web address] Comment on above: Result Comment: . Performed By: #### P T #### [facility] [address] [place] [address] Protime-INRon 10-25-2021 INR Coag (Bld) [Relative time] 1.5 {INR} High [facility] Work Phone: Comment on above: Recommended Anticoag [...] Interpretation and review of laboratory results Abnormal [facility] Work Phone: PT Coag (PPP) [Time] 15.6 s High 9.0 - 12.0 s [facility] Work Phone: Comment on above: . Test Performed by [facility], [address], [place] [address] [facility] Work Phone: B-2 Glycoprotein (IGA)on Beta-2 Glyco 1 IgA <2.0 U/mL [facility] Work Phone: Comment on above: Interpretive Informa tion: Results equal to or greater than 20 U/mL = POSITIVE Results less than 20 U/mL = NEGATIVE B2 Glycoprotein I (IgM) Abon 10-24-2021 Beta-2 Glyco 1 IgM <1.5 U/mL [facility] Work Phone: Comment on above: Interpretive Informa tion: Results equal to or greater than 20 U/mL = POSITIVE Results less than 20 U/mL = NEGATIVE B2 Glycoprotein I Igg Abon 0 10-24-2021 Beta-2 Glyco 1 IgG <1.4 U/mL [facility] Work Phone: Comment on above: Interpretive Informa tion: Results equal to or greater than 20 U/mL = POSITIVE Results less than 20 U/mL = NEGATIVE Basic Metabolic Panelon 10-06 Anion gap [Moles/Vol] 8 mmol/L Normal 3-13 [facility] Comment on above: Performed By: #### C A19O, LUPUS #### The performing lab is in the report. #### NSEO #### [facility] #### HEMDF, LDH3, BMP3, MG3, PT, CEA2 #### [facility] [address] [place] [address] #### B2GPM, B2GPA, B2GPG #### [address] Calcium [Mass/Vol] 8.8 mg/dL Normal 8.4-10.4 [facility] Comment on above: Performed By: #### C A19O, LUPUS #### The performing lab is in the report. #### NSEO #### [facility] #### HEMDF, LDH3, BMP3, MG3, PT, CEA2 #### [place] [address] [place] #### B2GPM, B2GPA, B2GPG #### [address] CO2 [Moles/Vol] 25 mmol/L Normal 22-30 [facility] Comment on above: Performed By: #### C A19O, LUPUS #### The performing lab is in the report. #### NSEO #### [facility] #### HEMDF, LDH3, BMP3, MG3, PT, CEA2 #### [place] [address] [place] #### B2GPM, B2GPA, B2GPG #### [address] Creatinine [Mass/Vol] 0.74 mg/dL Normal 0.52-1.25 [facility] Comment on above: Performed By: #### C A19O, LUPUS #### The performing lab is in the report. #### NSEO #### [facility] #### HEMDF, LDH3, BMP3, MG3, PT, CEA2 #### [place] [address] [place] #### B2GPM, B2GPA, B2GPG #### [address] eGFR OTHER > 90.0 Normal >60 [facility] Comment on above: Result Comment: KDIG O [...] HEMDF, LDH3, BMP3, MG3, PT, CEA2 #### [facility] [address] [place] [address] #### B2GPM, B2GPA, B2GPG #### [address] GFR/1.73 sq M.predicted among blacks MDRD (S/P/Bld) [Vol rate/Area] mL/min/{1.73_m2} Normal >60 [facility] Comment on above: Performed By: #### C A19O, LUPUS #### The performing lab is in the report. #### NSEO #### [facility] #### HEMDF, LDH3, BMP3, MG3, PT, CEA2 #### [facility] [address] [place] [address] #### B2GPM, B2GPA, B2GPG #### [address] Glucose [Mass/Vol] 116 mg/dL High 70-100 [facility] Comment on above: Performed By: #### C A19O, LUPUS #### The performing lab is in the report. #### NSEO #### [facility] #### HEMDF, LDH3, BMP3, MG3, PT, CEA2 #### [facility] [address] [place] [address] #### B2GPM, B2GPA, B2GPG #### [address] Urea nitrogen [Mass/Vol] 19 mg/dL High 7-17 [facility] Comment on above: Performed By: #### C A19O, LUPUS #### The performing lab is in the report. #### NSEO #### [facility] #### HEMDF, LDH3, BMP3, MG3, PT, CEA2 #### [address] [place] [address] #### B2GPM, B2GPA, B2GPG #### [address] Chloride [Moles/Vol] 107 mmol/L Normal 98-107 [facility] Comment on above: Performed By: #### C A19O, LUPUS #### The performing lab is in the report. #### NSEO #### [facility] #### HEMDF, LDH3, BMP3, MG3, PT, CEA2 #### [place] [address] [place] [address] #### B2GPM, B2GPA, B2GPG #### [address] Potassium [Moles/Vol] 3.9 mmol/L Normal 3.5-5.1 [facility] Comment on above: Performed By: #### C A19O, LUPUS #### The performing lab is in the report. #### NSEO #### [facility] #### HEMDF, LDH3, BMP3, MG3, PT, CEA2 #### [place] [address] [place] [address] #### B2GPM, B2GPA, B2GPG #### [facility] [address] [place] [address] Sodium [Moles/Vol] 140 mmol/L Normal 135-145 [facility] Comment on above: Performed By: #### C A19O, LUPUS #### The performing lab is in the report. #### NSEO #### [facility] #### HEMDF, LDH3, BMP3, MG3, PT, CEA2 #### [facility] [address] [place] [address] #### B2GPM, B2GPA, B2GPG #### [facility] [address] [place] [address] Anion gap [Moles/Vol] 8 mmol/L 3 - 13 mmol/L [facility] Calcium [Mass/Vol] 8.8 mg/dL 8.4 - 10. 4 mg/dL [facility] Chloride [Moles/Vol] 107 mmol/L 98 - 10 7 mmol/L [facility] CO2 [Moles/Vol] 25 mmol/L 22 - 30 mmol/L [facility] Creatinine [Mass/Vol] 0.74 mg/dL 0.52 - 1.25 mg/dL [facility] EGFR IF NonAfrican [place]er >90.0 >60 mL/min [facility] Comment on above: KDIGO guidelines pro [...] - 17 mg/dL [facility] Test Performed by [facility], [address] [place] [address] [facility] Beta-2 Glycoprotein I IgAon 10-24-2021 Beta-2 Glycoprotein I IgA < 2.0 Normal [facility] Comment on above: Result Comment: Inte rpretive Information: Results equal to or greater than 20 U/mL = POSITIVE Results less than 20 U/mL = NEGATIVE Performed By: #### C OVAG #### [facility] [address] [place] [address] Beta-2 Glycoprotein I IgGon 10-24-2021 Beta-2 Glycoprotein I IgG < 1.4 Normal [facility] Comment on above: Result Comment: Inte rpretive Information: Results equal to or greater than 20 U/mL = POSITIVE Results less than 20 U/mL = NEGATIVE Performed By: #### C OVAG #### [facility] [address] [place] [address] Beta-2 Glycoprotein I IgMon 10-24-2021 Beta-2 Glycoprotein I IgM < 1.5 Normal [facility] Comment on above: Result Comment: Inte rpretive Information: Results equal to or greater than 20 U/mL = POSITIVE Results less than 20 U/mL = NEGATIVE Performed By: #### C OVAG #### [facility] [address] [place] [address] No Panel Informationon 10-24 [facility] Test Performed by [facility], [address] [place] [address] [facility] Work Phone: PROTEIN C FUNCTIONALon [...] reference intervals for this test in the [facility] ([employer]). Performed by [facility], [address] [facility],[place] [id number] [email or web address], Quiana Castro MD - Lab. Director Protein C, Functionalon 10-06 Protein C, Functional 185 % High 83-168 [facility] Comment on above: Result Comment: INTE RPRETIVE [...] reference intervals for this test in the [facility] ([employer]). Performed by [facility], [address] [facility] [place] [address] [email or web address], Quiana Castro MD - Lab. Director Performed By: #### P T #### [facility] [address] [place] [address] Protein S, Functionalon 10-06 Protein S, Functional 138 % Normal 66-143 [facility] Comment on above: INTERPRETIVE INFORMA TION: Protein [...] reference intervals for this test in the [facility] ([employer]). Performed by [facility], [address] [facility] [address] [email or web address], Quiana Castro MD - Lab. Director Result [...] reference intervals for this test in the [facility] ([employer]). Performed by [facility], [address] [place] [id number] [email or web address], Quiana Castro MD - Lab. Director Performed By: #### P T #### [facility] [address] [place] [address] Prothrombin Timeon 2 INR 1.2 High 0.9-1.1 [facility] [email or web address] Comment on above: Result Comment: Harry mmended [...] is in the report. #### NSEO #### [facility] #### HEMDF, LDH3, BMP3, MG3, PT, CEA2 #### [facility] [email or web address] [address] [place] [address] #### B2GPM, B2GPA, B2GPG #### [facility] [email or web address] [address] [place] [address] PT Coag (PPP) [Time] 12.6 s High 9.0-12.0 [facility] [email or web address] Comment on above: Result Comment: . Performed By: #### C A19O, LUPUS #### The performing lab is in the report. #### NSEO #### [facility] #### HEMDF, LDH3, BMP3, MG3, PT, CEA2 #### [facility] [address] [place] [address] #### B2GPM, B2GPA, B2GPG #### [address] Protime-INRon 10-24-2021 INR Coag (Bld) [Relative time] 1.2 {INR} High [facility] Comment on above: Recommended Anticoag ulant [...] Interpretation and review of laboratory results Abnormal [facility] PT Coag (PPP) [Time] 12.6 s High 9.0 - 12.0 s [facility] Comment on above: . Test Performed by [facility], [address] [place], [place] [address] [place] [address] LAB [facility] Basic Metabolic Panelon 10-05 Anion gap [Moles/Vol] 10 mmol/L Normal 3-13 [facility] Comment on above: Performed By: #### C A19O, LUPUS #### The performing lab is in the report. #### NSEO #### [facility] #### HEMDF, LDH3, BMP3, MG3, PT, CEA2 #### [place] [address] [place] [address] #### B2GPM, B2GPA, B2GPG #### [address] [address] Calcium [Mass/Vol] 9.6 mg/dL Normal 8.4-10.4 [facility] Comment on above: Performed By: #### C A19O, LUPUS #### The performing lab is in the report. #### NSEO #### [facility] #### HEMDF, LDH3, BMP3, MG3, PT, CEA2 #### [facility] [address] [place] #### B2GPM, B2GPA, B2GPG #### [address] CO2 [Moles/Vol] 27 mmol/L Normal 22-30 [facility] Comment on above: Performed By: #### C A19O, LUPUS #### The performing lab is in the report. #### NSEO #### [facility] #### HEMDF, LDH3, BMP3, MG3, PT, CEA2 #### [place] [address] [place] #### B2GPM, B2GPA, B2GPG #### [address] Glucose [Mass/Vol] 109 mg/dL High 70-100 [facility] Comment on above: Performed By: #### C A19O, LUPUS #### The performing lab is in the report. #### NSEO #### [facility] #### HEMDF, LDH3, BMP3, MG3, PT, CEA2 #### [address] [place] #### B2GPM, B2GPA, B2GPG #### [address] Urea nitrogen [Mass/Vol] 18 mg/dL High 7-17 [facility] Comment on above: Performed By: #### C A19O, LUPUS #### The performing lab is in the report. #### NSEO #### [facility] #### HEMDF, LDH3, BMP3, MG3, PT, CEA2 #### [place] [address] [place] [address] #### B2GPM, B2GPA, B2GPG #### [address] Creatinine [Mass/Vol] 0.82 mg/dL Normal 0.52-1.25 [facility] Comment on above: Performed By: #### C A19O, LUPUS #### The performing lab is in the report. #### NSEO #### [facility] #### HEMDF, LDH3, BMP3, MG3, PT, CEA2 #### [facility] [address] [place] [address] #### B2GPM, B2GPA, B2GPG #### [address] [address] GFR/1.73 sq M.predicted among blacks MDRD (S/P/Bld) [Vol rate/Area] mL/min/{1.73_m2} Normal >60 [facility] Comment on above: Performed By: #### C A19O, LUPUS #### The performing lab is in the report. #### NSEO #### [facility] #### HEMDF, LDH3, BMP3, MG3, PT, CEA2 #### [facility] [address] [place] [address] #### B2GPM, B2GPA, B2GPG #### [address] [address] GFR/1.73 sq M.predicted among non-blacks MDRD (S/P/Bld) [Vol rate/Area] 89.9 mL/min/{1.73_m2} Normal >60 [facility] Comment on above: Result Comment: KDIG O [...] HEMDF, LDH3, BMP3, MG3, PT, CEA2 #### [place] [address] [place] [address] #### B2GPM, B2GPA, B2GPG #### [address] Chloride [Moles/Vol] 104 mmol/L Normal 98-107 [facility] Comment on above: Performed By: #### C A19O, LUPUS #### The performing lab is in the report. #### NSEO #### [facility] #### HEMDF, LDH3, BMP3, MG3, PT, CEA2 #### [address] [place] [address] #### B2GPM, B2GPA, B2GPG #### [address] Potassium [Moles/Vol] 3.9 mmol/L Normal 3.5-5.1 [facility] Comment on above: Performed By: #### C A19O, LUPUS #### The performing lab is in the report. #### NSEO #### [facility] #### HEMDF, LDH3, BMP3, MG3, PT, CEA2 #### [address] [facility] [place] [address] #### B2GPM, B2GPA, B2GPG #### [address] [address] Sodium [Moles/Vol] 142 mmol/L Normal 135-145 [facility] Comment on above: Performed By: #### C A19O, LUPUS #### The performing lab is in the report. #### NSEO #### [facility] #### HEMDF, LDH3, BMP3, MG3, PT, CEA2 #### [facility] [address] [place] [address] #### B2GPM, B2GPA, B2GPG #### [employer] [address] [place] [address] Anion gap [Moles/Vol] 10 mmol/L 3 - 13 mmol/L [facility] Work Phone: [phone] Calcium [Mass/Vol] 9.6 mg/dL 8.4 - 10. 4 mg/dL [facility] Work Phone: Chloride [Moles/Vol] 104 mmol/L 98 - 10 7 mmol/L [facility] Work Phone: CO2 [Moles/Vol] 27 mmol/L 22 - 30 mmol/L [facility] Work Phone: Creatinine [Mass/Vol] 0.82 mg/dL 0.52 - 1.25 mg/dL [facility] Work Phone: EGFR IF NonAfrican [place]er 89.9 mL/min >60 [facility] Work Phone: Comment on above: KDIGO [...] (S/P/Bld) [Vol rate/Area] mL/min/{1.73_m2} >60 mL/min [facility] Work Phone: Glucose [Mass/Vol] 109 mg/dL High 70 - 100 mg/dL [facility] Work Phone: [phone] Interpretation and review of laboratory results Abnormal [facility] Work Phone: 1) 222 Potassium [Moles/Vol] 3.9 mmol/L 3.5 - 5.1 mmol/L [facility] Work Phone: 1) 222 Sodium [Moles/Vol] 142 mmol/L 135 - 145 mmol/L [facility] Work Phone: 1) 222 Urea nitrogen (BldV) [Mass/Vol] 18 mg/dL High 7 - 17 mg/dL [facility] Work Phone: 1) 222 CBC with Auto Differentialon 10-23-2021 Absolute Baso # 0.1 10*3/uL 0.0 - 0.2 10*3/uL [facility] Work Phone: 1) 222 Absolute Neut # 6.6 10*3/uL 1.8 - 7.0 10*3/uL [facility] Work Phone: 1) 222 Basophils/100 WBC (Bld) 1.1 % 0.0 - 2.0 % [facility] Work Phone: 1) 222 Eosinophils (Bld) [#/Vol] 0.4 10*3/uL 0.0 - 0.5 10*3/uL [facility] Work Phone: 1) 222 Eosinophils/100 WBC (Bld) 3.9 % 1.0 - 6.0 % [facility] Work Phone: 1) 222 Granulocytes/100 WBC (Bld) 64.0 % 40.0 - 80.0 % [facility] Work Phone: 1 222 Hematocrit (Bld) [Volume fraction] 35.1 % Low 40.0 - 52.0 % [facility] Work Phone: 1) 222 Hemoglobin (Bld) [Mass/Vol] 11.6 g/dL Low 13.0 - 18.0 g/dL [facility] Work Phone: 1 222 Interpretation and review of laboratory results Abnormal [facility] Work Phone: 1) 222 Lymphocytes (Bld) [#/Vol] 2.6 10*3/uL 1.0 - 4.3 10*3/uL [facility] Work Phone: 1) 222 Lymphocytes/100 WBC (Bld) 25.0 % 20.0 - 40.0 % [facility] Work Phone: 1() MCH (RBC) [Entitic mass] 28.4 pg 26.0 - 34.0 pg [facility] Work Phone: () MCHC (RBC) [Mass/Vol] 33.1 % 32.0 - 36.0 % [facility] Work Phone: () MCV (RBC) [Entitic vol] 85.9 fL 80.0 - 98.0 fL [facility] Work Phone: ) Monocytes (Bld) [#/Vol] 0.6 10*3/uL 0.0 - 0.8 10*3/uL [facility] Work Phone: ) Monocytes/100 WBC (Bld) 6.0 % 2.0 - 10.0 % [facility] Work Phone: Platelet distribution width (Bld) [Ratio] 17.4 % High 11.5 - 14.5 % [facility] Work Phone: Platelet mean volume (Bld) [Entitic vol] 8.1 fL 7.4 - 12.4 fL [facility] Work Phone: ) Comment on above: MPV is a calculated measurement using platelet volume ratio. Platelets (Bld) [#/Vol] 450 10*3/uL High 140 - 440 10*3/uL [facility] Work Phone: () RBC (Bld) [#/Vol] 4.08 10*6/uL Low 4.40 - 5.9 0 10*6/uL [facility] Work Phone: () WBC (Bld) [#/Vol] 10.3 10*3/uL 3.6 - 10.7 10*3/uL [facility] Work Phone: () Test Performed by [facility], [address] [place], [place] [address] [facility] Work Phone: () CEAon 10-23-2021 CEA 0.8 ng/mL 0.0 - 3.0 ng/mL [facility] Work Phone: Test Performed by [facility], [address] [place] [address] [facility] Work Phone: Carcinoembryonic Agon 2021 Carcinoembryonic Ag. 0.8 ng/mL Normal 0.0-3.0 [facility] Comment on above: Performed By: #### C A19O, LUPUS #### The performing lab is in the report. #### NSEO #### [facility] #### HEMDF, LDH3, BMP3, MG3, PT, CEA2 #### [place] [address] [place] [id number] #### B2GPM, B2GPA, B2GPG #### [address] Hemogram w/ Autodiffon 10-23 Abs Baso Cnt 0.1 10*3/uL Normal 0.0-0.2 [facility] Comment on above: Performed By: #### C A19O, LUPUS #### The performing lab is in the report. #### NSEO #### [facility] #### HEMDF, LDH3, BMP3, MG3, PT, CEA2 #### [address] [place] [address] #### B2GPM, B2GPA, B2GPG #### [address] Abs Neutrophile Cnt 6.6 10*3/uL Normal 1.8-7.0 [facility] Comment on above: Performed By: #### C A19O, LUPUS #### The performing lab is in the report. #### NSEO #### [facility] #### HEMDF, LDH3, BMP3, MG3, PT, CEA2 #### [place] [address] [place] [address] #### B2GPM, B2GPA, B2GPG #### [address] Basophils/100 WBC (Bld) 1.1 % Normal 0.0-2.0 [facility] Comment on above: Performed By: #### C A19O, LUPUS #### The performing lab is in the report. #### NSEO #### [facility] #### HEMDF, LDH3, BMP3, MG3, PT, CEA2 #### [facility] [address] [place] [address] #### B2GPM, B2GPA, B2GPG #### [address] Eosinophils (Bld) [#/Vol] 0.4 10*3/uL Normal 0.0-0.5 [facility] Comment on above: Performed By: #### C A19O, LUPUS #### The performing lab is in the report. #### NSEO #### [facility] #### HEMDF, LDH3, BMP3, MG3, PT, CEA2 #### [facility] [address] [place] [address] #### B2GPM, B2GPA, B2GPG #### [address] Eosinophils/100 WBC (Bld) 3.9 % Normal 1.0-6.0 [facility] Comment on above: Performed By: #### C A19O, LUPUS #### The performing lab is in the report. #### NSEO #### [facility] #### HEMDF, LDH3, BMP3, MG3, PT, CEA2 #### [facility] [address] [place] [address] #### B2GPM, B2GPA, B2GPG #### [address] Erythrocyte distribution width (RBC) [Ratio] 17.4 % High 11.5-14.5 [facility] Comment on above: Performed By: #### C A19O, LUPUS #### The performing lab is in the report. #### NSEO #### [facility] #### HEMDF, LDH3, BMP3, MG3, PT, CEA2 #### [facility] [address] [place] #### B2GPM, B2GPA, B2GPG #### [address] Granulocytes/100 WBC (Bld) 64.0 % Normal 40.0-80.0 [facility] Comment on above: Performed By: #### C A19O, LUPUS #### The performing lab is in the report. #### NSEO #### [facility] #### HEMDF, LDH3, BMP3, MG3, PT, CEA2 #### [place] [address] [place] #### B2GPM, B2GPA, B2GPG #### [address] Hematocrit (Bld) [Volume fraction] 35.1 % Low 40.0-52.0 [facility] Comment on above: Performed By: #### C A19O, LUPUS #### The performing lab is in the report. #### NSEO #### [facility] #### HEMDF, LDH3, BMP3, MG3, PT, CEA2 #### [address] [facility] [place] #### B2GPM, B2GPA, B2GPG #### [address] Hemoglobin (Bld) [Mass/Vol] 11.6 g/dL Low 13.0-18.0 [facility] Comment on above: Performed By: #### C A19O, LUPUS #### The performing lab is in the report. #### NSEO #### [facility] #### HEMDF, LDH3, BMP3, MG3, PT, CEA2 #### [place] [address] [place] #### B2GPM, B2GPA, B2GPG #### [address] Lymphocytes (Bld) [#/Vol] 2.6 10*3/uL Normal 1.0-4.3 [facility] Comment on above: Performed By: #### C A19O, LUPUS #### The performing lab is in the report. #### NSEO #### [facility] #### HEMDF, LDH3, BMP3, MG3, PT, CEA2 #### [facility] [address] [place], [place] #### B2GPM, B2GPA, B2GPG #### [address] Lymphocytes/100 WBC (Bld) 25.0 % Normal 20.0-40.0 [facility] Comment on above: Performed By: #### C A19O, LUPUS #### The performing lab is in the report. #### NSEO #### [facility] #### HEMDF, LDH3, BMP3, MG3, PT, CEA2 #### [facility] [address] [place], [place] #### B2GPM, B2GPA, B2GPG #### [address] MCH (RBC) [Entitic mass] 28.4 pg Normal 26.0-34.0 [facility] Comment on above: Performed By: #### C A19O, LUPUS #### The performing lab is in the report. #### NSEO #### [facility] #### HEMDF, LDH3, BMP3, MG3, PT, CEA2 #### [facility] [address] [place], [place] #### B2GPM, B2GPA, B2GPG #### [address] MCHC 33.1 % Normal 32.0-36.0 [facility] Comment on above: Performed By: #### C A19O, LUPUS #### The performing lab is in the report. #### NSEO #### [facility] #### HEMDF, LDH3, BMP3, MG3, PT, CEA2 #### [facility] [address] [place] #### B2GPM, B2GPA, B2GPG #### [address] MCV (RBC) [Entitic vol] 85.9 fL Normal 80.0-98.0 [facility] Comment on above: Performed By: #### C A19O, LUPUS #### The performing lab is in the report. #### NSEO #### [facility] #### HEMDF, LDH3, BMP3, MG3, PT, CEA2 #### [address] [place] #### B2GPM, B2GPA, B2GPG #### [address] Monocytes (Bld) [#/Vol] 0.6 10*3/uL Normal 0.0-0.8 [facility] Comment on above: Performed By: #### C A19O, LUPUS #### The performing lab is in the report. #### NSEO #### [facility] #### HEMDF, LDH3, BMP3, MG3, PT, CEA2 #### [address] [place] #### B2GPM, B2GPA, B2GPG #### [address] Monocytes/100 WBC (Bld) 6.0 % Normal 2.0-10.0 [facility] Comment on above: Performed By: #### C A19O, LUPUS #### The performing lab is in the report. #### NSEO #### [facility] #### HEMDF, LDH3, BMP3, MG3, PT, CEA2 #### [place] [address] [place] #### B2GPM, B2GPA, B2GPG #### [place] [address] [place], [place] Platelet mean volume (Bld) [Entitic vol] 8.1 fL Normal 7.4-12.4 [facility] Comment on above: Result Comment: MPV is a calculated measurement using platelet volume ratio. Performed By: #### C A19O, LUPUS #### The performing lab is in the report. #### NSEO #### [facility] #### HEMDF, LDH3, BMP3, MG3, PT, CEA2 #### [facility] [address] [place] [address] #### B2GPM, B2GPA, B2GPG #### [address] Platelets (Bld) [#/Vol] 450 10*3/uL High 140-440 [facility] Comment on above: Performed By: #### C A19O, LUPUS #### The performing lab is in the report. #### NSEO #### [facility] #### HEMDF, LDH3, BMP3, MG3, PT, CEA2 #### [facility] [address] [place] [address] #### B2GPM, B2GPA, B2GPG #### [address] RBC (Bld) [#/Vol] 4.08 10*6/uL Low 4.40-5.90 [facility] Comment on above: Performed By: #### C A19O, LUPUS #### The performing lab is in the report. #### NSEO #### [facility] #### HEMDF, LDH3, BMP3, MG3, PT, CEA2 #### [facility] [address] [facility] [place] [address] #### B2GPM, B2GPA, B2GPG #### [address] WBC (Bld) [#/Vol] 10.3 10*3/uL Normal 3.6-10.7 [facility] Comment on above: Performed By: #### C A19O, LUPUS #### The performing lab is in the report. #### NSEO #### [facility] #### HEMDF, LDH3, BMP3, MG3, PT, CEA2 #### [facility] [address] [place] [address] #### B2GPM, B2GPA, B2GPG #### [facility] [address] [place] [address] LDHon 10-23-2021 LDH 136 U/L Normal 120-246 [facility] Comment on above: Performed By: #### C A19O, LUPUS #### The performing lab is in the report. #### NSEO #### [facility] #### HEMDF, LDH3, BMP3, MG3, PT, CEA2 #### [facility] [address] [place] [address] #### B2GPM, B2GPA, B2GPG #### [facility] [address] [place] [address] Lactate Dehydrogenaseon 06- LD 136 U/L 120 - 246 U/L [facility] Work Phone: MRI ABDOMEN WO CONTRASTon Patient Name: ANDREW SIFUENTES Magnetic Resonance Imaging ACCESSION EXAM DATE/TIME PROCEDURE ORDERING PROVIDER [id number] 10/23/2021 11:08 EDT MRI Abdomen w/o Contrast WING SRIVASTAVA CPT code 79996 Reason For Exam (MRI Abdomen w/o Contrast) [...] Imaging ACCESSION EXAM DATE/TIME PROCEDURE ORDERING PROVIDER [id number] 10/23/2021 11:08 EDT MRI Abdomen w/o Contrast WING SRIVASTAVA CPT code 29034 Reason For Exam (MRI Abdomen w/o Contrast) [...] VLADIMIR Transcribed Date and Time: 10/23/2021 4:36 [facility] Work Phone: MRI ABDOMEN WO CONTRASTOrder ed By: Unknown Result on 10-23-2021 [facility] MRI Abdomen w/o Contraston 0 10-23-2021 MRI Abdomen w/o Contrast Patient Name: ANDREW SIFUENTES Magnetic Resonance Imaging ACCESSION EXAM DATE/TIME PROCEDURE ORDERING PROVIDER [id number] 10/23/2021 11:08 EDT MRI Abdomen w/o Contrast WING SRIVASTAVA CPT code 43149 Reason For Exam (MRI Abdomen w/o Contrast) [...] Transcribed Date and Time: 10/23/2021 4:36 Normal [facility] Magnesiumon 10-23-2021 Magnesium [Mass/Vol] 2.1 mg/dL Normal 1.6-2.3 [facility] Comment on above: Performed By: #### C A19O, LUPUS #### The performing lab is in the report. #### NSEO #### [facility] #### HEMDF, LDH3, BMP3, MG3, PT, CEA2 #### [facility] [address] [place] [address] #### B2GPM, B2GPA, B2GPG #### [facility] [address] [place] [address] Magnesium [Mass/Vol] 2.1 mg/dL 1.6 - 2 .3 mg/dL [facility] Work Phone: No Panel Informationon 10-23 Test Performed by [facility], [address] [facility] [place], [place] [address] [facility] Work Phone: Prothrombin Timeon INR 1.1 Normal 0.9-1.1 [facility] Comment on above: Result Comment: Harry mmended [...] HEMDF, LDH3, BMP3, MG3, PT, CEA2 #### [place] [address] [place] [address] #### B2GPM, B2GPA, B2GPG #### [address] PT Coag (PPP) [Time] 12.2 s High 9.0-12.0 [facility] Comment on above: Result Comment: . Performed By: #### C A19O, LUPUS #### The performing lab is in the report. #### NSEO #### [facility] #### HEMDF, LDH3, BMP3, MG3, PT, CEA2 #### [facility] [address] [place] [address] #### B2GPM, B2GPA, B2GPG #### [address] Protime-INRon 10-23-2021 INR Coag (Bld) [Relative time] 1.1 {INR} [facility] Work Phone: Comment on above: Recommended [...] Interpretation and review of laboratory results Abnormal [facility] Work Phone: PT Coag (PPP) [Time] 12.2 s High 9.0 - 12.0 s [facility] Work Phone: Comment on above: . Test Performed by [facility], [address] [place] [address] [facility] Work Phone: Basic Metabolic Panelon 10-05 Calcium [Mass/Vol] 8.9 mg/dL Normal 8.4-10.4 [facility] Comment on above: Performed By: #### P T #### [facility] [address] [place] [address] Glucose [Mass/Vol] 110 mg/dL High 70-100 [facility] Comment on above: Performed By: #### P T #### [facility] [address] [place] [address] Urea nitrogen [Mass/Vol] 14 mg/dL Normal 7-17 [facility] Comment on above: Performed By: #### P T #### [facility] [address] [place] [address] Anion gap [Moles/Vol] 7 mmol/L Normal 3-13 [facility] Comment on above: Performed By: #### P T #### [facility] [address] [place] [address] CO2 [Moles/Vol] 26 mmol/L Normal 22-30 [facility] Comment on above: Performed By: #### P T #### [facility] [address] [place] [address] Creatinine [Mass/Vol] 0.71 mg/dL Normal 0.52-1.25 [facility] Comment on above: Performed By: #### P T #### [facility] [address] [place] [address] eGFR OTHER > 90.0 Normal >60 [facility] Comment on above: Result Comment: KDIG O [...] secretion. Performed By: #### P T #### [facility] [address] [place] [address] GFR/1.73 sq M.predicted among blacks MDRD (S/P/Bld) [Vol rate/Area] mL/min/{1.73_m2} Normal >60 [facility] Comment on above: Performed By: #### P T #### [facility] [address] [place] [address] Potassium [Moles/Vol] 3.8 mmol/L Normal 3.5-5.1 [facility] Comment on above: Performed By: #### P T #### [facility] [address] [place] [address] Chloride [Moles/Vol] 106 mmol/L Normal 98-107 [facility] Comment on above: Performed By: #### P T #### [facility] [address] [place] [address] Sodium [Moles/Vol] 139 mmol/L Normal 135-145 [facility] Comment on above: Performed By: #### P T #### [facility] [address] [place] [address] Anion gap [Moles/Vol] 7 mmol/L 3 - 13 mmol/L [facility] Calcium [Mass/Vol] 8.9 mg/dL 8.4 - 10. 4 mg/dL [facility] Chloride [Moles/Vol] 106 mmol/L 98 - 10 7 mmol/L [facility] CO2 [Moles/Vol] 26 mmol/L 22 - 30 mmol/L [facility] Creatinine [Mass/Vol] 0.71 mg/dL 0.52 - 1.25 mg/dL [facility] EGFR IF NonAfrican [place]er >90.0 >60 mL/min [facility] Comment on above: [...] [#/Vol] 9.4 10*3/uL 3.6 - 10.7 10*3/uL [facility] Test Performed by [facility], [address] [place], [place], [place] [address] [facility] CT Abdomen Pelvis Wo Umair johnston 10-22-2021 Patient Name: ANDREW SIFUENTES Computed Tomography ACCESSION EXAM DATE/TIME PROCEDURE ORDERING PROVIDER [id number] 10/22/2021 13:[address] Abdomen/Pelvis (No SRIVASTAVA, WING PO, No IV) CPT code 56173 Reason For Exam (CT Abdomen/Pelvis (No PO, [...] HARLAN Transcribed Date and Time: 10/22/2021 2:37 [facility] Humphrey Melton MD - 10/22/2021 Patient Name: ANDREW SIFUENTES Computed Tomography ACCESSION EXAM DATE/TIME PROCEDURE ORDERING PROVIDER [id number] 10/22/2021 13:[address] Abdomen/Pelvis (No SRIVASTAVA WING PO, No IV) CPT code 93349 Reason For Exam (CT Abdomen/Pelvis (No PO, [...] Contras tOrdered By: Humphrey Melton on 10-22-2021 [facility] Work Phone: CT Abdomen/Pelvis w/o Contra ston 10-22-2021 CT Abdomen/Pelvis w/o Contrast Patient [facility]: [id number] Tomography ACCESSION EXAM DATE/TIME PROCEDURE ORDERING PROVIDER [id number] 10/22/2021 13:[address] Abdomen/Pelvis (No SRIVASTAVA, WING PO, No IV) CPT code 61852 Reason For Exam (CT Abdomen/Pelvis (No PO, [...] Transcribed Date and Time: 10/22/2021 2:37 Normal [facility] Hemogram w/ Autodiffon 10-22 Abs Baso Cnt 0.1 10*3/uL Normal 0.0-0.2 [facility] Comment on above: Performed By: #### P T #### [facility] [address] [place] [address] Abs Neutrophile Cnt 6.0 10*3/uL Normal 1.8-7.0 [facility] Comment on above: Performed By: #### P T #### [facility] [address] [place] [address] Basophils/100 WBC (Bld) 1.0 % Normal 0.0-2.0 [facility] Comment on above: Performed By: #### P T #### [facility] [address] [place] [address] Eosinophils (Bld) [#/Vol] 0.3 10*3/uL Normal 0.0-0.5 [facility] Comment on above: Performed By: #### P T #### [facility] [address] [place] [address] Eosinophils/100 WBC (Bld) 3.0 % Normal 1.0-6.0 [facility] Comment on above: Performed By: #### P T #### [facility] [address] [place] [address] Erythrocyte distribution width (RBC) [Ratio] 17.1 % High 11.5-14.5 [facility] Comment on above: Performed By: #### P T #### [facility] [address] [place] [address] Granulocytes/100 WBC (Bld) 64.1 % Normal 40.0-80.0 [facility] Comment on above: Performed By: #### P T #### [facility] [address] [place] [address] Hematocrit (Bld) [Volume fraction] 33.4 % Low 40.0-52.0 [facility] Comment on above: Performed By: #### P T #### [facility] [address] [place] [address] Hemoglobin (Bld) [Mass/Vol] 10.9 g/dL Low 13.0-18.0 [facility] Comment on above: Performed By: #### P T #### [place] [address] [place] [address] Lymphocytes (Bld) [#/Vol] 2.5 10*3/uL Normal 1.0-4.3 [facility] Comment on above: Performed By: #### P T #### [place] [address] [place] [address] Lymphocytes/100 WBC (Bld) 26.3 % Normal 20.0-40.0 [facility] Comment on above: Performed By: #### P T #### [place] [address] [place] [address] MCH (RBC) [Entitic mass] 28.2 pg Normal 26.0-34.0 [facility] Comment on above: Performed By: #### P T #### [facility] [address] [place] [address] MCHC 32.7 % Normal 32.0-36.0 [facility] Comment on above: Performed By: #### P T #### [place] [address] [place] [address] MCV (RBC) [Entitic vol] 86.3 fL Normal 80.0-98.0 [facility] Comment on above: Performed By: #### P T #### [place] [address] [place] [address] Monocytes (Bld) [#/Vol] 0.5 10*3/uL Normal 0.0-0.8 [facility] Comment on above: Performed By: #### P T #### [facility] [address] [place] [address] Monocytes/100 WBC (Bld) 5.6 % Normal 2.0-10.0 [facility] Comment on above: Performed By: #### P T #### [facility] [address] [place] [address] Platelet mean volume (Bld) [Entitic vol] 7.6 fL Normal 7.4-12.4 [facility] Comment on above: Result Comment: MPV is a calculated measurement using platelet volume ratio. Performed By: #### P T #### [facility] [address] [place] [address] Platelets (Bld) [#/Vol] 369 10*3/uL Normal 140-440 [facility] Comment on above: Performed By: #### P T #### [facility] [address] [place] [address] RBC (Bld) [#/Vol] 3.87 10*6/uL Low 4.40-5.90 [facility] Comment on above: Performed By: #### P T #### [facility] [address] [place] [address] WBC (Bld) [#/Vol] 9.4 10*3/uL Normal 3.6-10.7 [facility] Comment on above: Performed By: #### P T #### [facility] [address] [place] [address] Magnesiumon 10-22-2021 Magnesium [Mass/Vol] 2.0 mg/dL Normal 1.6-2.3 [facility] Comment on above: Performed By: #### P T #### [facility] [address] [place] [address] Magnesium [Mass/Vol] 2.0 mg/dL 1.6 - 2 .3 mg/dL [facility] No Panel Informationon 10-22 Radiology Study observation (narrative) [facility] Work Phone: Test Performed by [facility], [address] [place] [address] [facility] Prothrombin Timeon INR 1.1 Normal 0.9-1.1 [facility] Comment on above: Result Comment: Harry mmended [...] HEMDF, LDH3, BMP3, MG3, PT, CEA2 #### [facility] [address] [place] [address] #### B2GPM, B2GPA, B2GPG #### [address] [address] PT Coag (PPP) [Time] 11.8 s Normal 9.0-12.0 [facility] Comment on above: Result Comment: . Performed By: #### C A19O, LUPUS #### The performing lab is in the report. #### NSEO #### [facility] #### HEMDF, LDH3, BMP3, MG3, PT, CEA2 #### [facility] [address] [place] [address] #### B2GPM, B2GPA, B2GPG #### [address] [id number] Protime-INRon 10-22-2021 INR Coag (Bld) [Relative time] 1.1 {INR} [facility] Work Phone: Comment on above: Recommended [...] [Time] 11.8 s 9.0 - 12.0 s [facility] Work Phone: Comment on above: . Test Performed by [facility], [address], [place], [place] [id number] [place] [address] LAB [facility] Work Phone: VL Ankle Art Brachial Indice s Extremity Bilateralon 10-22-2021 [facility] Ankle Brachial Index Report Patient DO GurpreetB: 1950 Study 10/21/2021 Name: Andrew Gonzalez (71yrs) Date: Age: 71 Account: [id number] Gender: M Loc: 444W BP: Ordering Physician: Shruthi Malik Nutrition Professor: Rody Cross RDMS, RVT Interpreting Physician: Carina Call Location: [facility] Indications: Foot wounds. Originally ordered as a full PVR. Ordering CLINICAL OPERATIONS LEADER had to modify the order to ABIs [...] supine position. Images were obtained using a [employer] vascular ultrasound machine. Arterial pressure indices: + [...] electronically signed by Carina Call 10/22/2021 13:21 [facility] Carina Call MD - 10/22/2021 [facility] Ankle Brachial Index Report Patient DO GurpreetB: 1950 Study 10/21/2021 Name: Andrew Gonzalez (71yrs) Date: Age: 71 Account: [id number] Gender: M Loc: 444W BP: Ordering Physician: Shruthi Malik Nutrition Professor: Rody Cross RDMS, RVT Interpreting Physician: Carina Call Location: [facility] Indications: Foot wounds. Originally ordered as a full PVR. Ordering CLINICAL OPERATIONS LEADER had to modify the order to ABIs [...] supine position. Images were obtained using a [employer] vascular ultrasound machine. Arterial pressure indices: + [...] electronically signed by Carina Call 10/22/2021 13:21 [employer] Work Phone: [employer] Work Phone: Basic Metabolic Panelon 10-05 Calcium [Mass/Vol] 9.1 mg/dL Normal 8.4-10.4 [facility] Comment on above: Performed By: #### C OVAG #### [facility] [address] [place] [address] Anion gap [Moles/Vol] 6 mmol/L Normal 3-13 [facility] Comment on above: Performed By: #### C OVAG #### [facility] [address] [place] [address] CO2 [Moles/Vol] 29 mmol/L Normal 22-30 [facility] Comment on above: Performed By: #### C OVAG #### [facility] [address] [place] [address] Creatinine [Mass/Vol] 0.90 mg/dL Normal 0.52-1.25 [facility] Comment on above: Performed By: #### C OVAG #### [facility] [address] [place] [address] GFR/1.73 sq M.predicted among blacks MDRD (S/P/Bld) [Vol rate/Area] mL/min/{1.73_m2} Normal >60 [facility] Comment on above: Performed By: #### C OVAG #### [facility] [address] [place] [address] GFR/1.73 sq M.predicted among non-blacks MDRD (S/P/Bld) [Vol rate/Area] 86.6 mL/min/{1.73_m2} Normal >60 [facility] Comment on above: Result Comment: KDIG O [...] secretion. Performed By: #### C OVAG #### [facility] [address] [place] [address] Glucose [Mass/Vol] 106 mg/dL High 70-100 [facility] Comment on above: Performed By: #### C OVAG #### [facility] [address] [place] [address] Urea nitrogen [Mass/Vol] 18 mg/dL High 7-17 [facility] Comment on above: Performed By: #### C OVAG #### [facility] [address] [place] [address] Chloride [Moles/Vol] 105 mmol/L Normal 98-107 [facility] Comment on above: Performed By: #### C OVAG #### [facility] [address] [place] [address] Potassium [Moles/Vol] 4.3 mmol/L Normal 3.5-5.1 [facility] Comment on above: Performed By: #### C OVAG #### [facility] [address] [place] [address] Sodium [Moles/Vol] 139 mmol/L Normal 135-145 [facility] Comment on above: Performed By: #### C OVAG #### [facility] [address] [place] [address] Anion gap [Moles/Vol] 6 mmol/L 3 - 13 mmol/L [facility] Calcium [Mass/Vol] 9.1 mg/dL 8.4 - 10. 4 mg/dL [facility] Chloride [Moles/Vol] 105 mmol/L 98 - 10 7 mmol/L [facility] CO2 [Moles/Vol] 29 mmol/L 22 - 30 mmol/L [facility] Creatinine [Mass/Vol] 0.9 mg/dL 0.52 - 1.25 mg/dL [facility] EGFR IF NonAfrican [place]er 86.6 mL/min >60 [facility] Comment on above: KDIGO guidelines pro [...] 106 mg/dL High 70 - 100 mg/dL [facility] Interpretation and review of laboratory results Abnormal [facility] Potassium [Moles/Vol] 4.3 mmol/L 3.5 - 5.1 mmol/L [facility] Sodium [Moles/Vol] 139 mmol/L 135 - 145 mmol/L [facility] Urea nitrogen (BldV) [Mass/Vol] 18 mg/dL High 7 - 17 mg/dL [facility] Test Performed by [facility], [facility] [address] LAB [facility] C-Reactive Proteinon 022 CRP [Mass/Vol] 33.5 mg/L High 0.0-9.9 [facility] Comment on above: Result Comment: . Performed By: #### P T #### [facility] [address] [place] [address] CRP [Mass/Vol] 33.5 mg/L High 0.0 - 9.9 mg/L [facility] Comment on above: . Interpretation and review of laboratory results Abnormal [facility] Test Performed by [facility], [address] LAB [facility] CR Calcaneus 2+ Views Lefton 10-21-2021 CR Calcaneus 2+ Views Left Patient Name: ANDREW SIFUENTES Diagnostic Radiology ACCESSION EXAM DATE/TIME PROCEDURE ORDERING PROVIDER [id number] 10/21/2021 15:30 EDT CR Calcaneus 2+ Views [id number] -SHRUTHI MALIK Left CPT code 96513 Reason For Exam (CR Calcaneus 2+ Views [...] Transcribed Date and Time: 10/21/2021 4:33 Normal [facility] CR Chest 1 View Frontalon CR Chest 1 View Frontal Patient Name: ANDREW SIFUENTES Diagnostic Radiology ACCESSION EXAM DATE/TIME PROCEDURE ORDERING PROVIDER [id number] 10/21/2021 08:16 EDT CR Chest 1 View Frontal [id number] MAY BOGGS CPT code 07288 Reason For Exam (CR Chest 1 View [...] Transcribed Date and Time: 10/21/2021 8:33 Normal [facility] D-Dimer, Innovanceon 022 D-Dimer, Innovance 1.51 mg/L High <0.19-0.50 [facility] Comment on above: Result Comment: Inno saba D-Dimer values of <0.50 mg/L FEU can be used in combination with a pre-test probability model (e.g. Well's) to exclude pulmonary embolism (PE) disease, as well as an aid in the diagnosis of deep vein thrombosis (DVT). Performed By: #### P T #### [facility] [address] [place] [address] D-Dimer, Quantitativeon 10-05 D-Dimer, Quant 1.51 mg/L High <0.19 - 0.50 [facility] Comment on above: Innovance D-Dimer va lues of <0.50 mg/L FEU can be used in combination with a pre-test probability model (e.g. Well's) to exclude pulmonary embolism (PE) disease, as well as an aid in the diagnosis of deep vein thrombosis (DVT). Interpretation and review of laboratory results Abnormal [facility] Test Performed by [facility], [address], [place], [place] [address] [facility] LAB [facility] ED Provider Noteon 2 ED Provider Note B [facility]PARTMENT ENCOUNTER Pt Name: Andrew Sifuentes Birthdate 1950 Date of evaluation: 10/21/2021 Provider: Lisa Michelle, DO CHIEF COMPLAINT Chief Complaint Patient presents with ? Leg Swelling Blood clots HISTORY OF PRESENT ILLNESS (Location/Symptom, Timing/Onset, Context/Setting, Quality, Duration, Modifying Factors, Severity) Note limiting factors. I wore a procedure mask for the entirety of this encounter. HPI Anrdew Sifuentes is a 71 y.o. male who [...] (HCC) ? Kidney stone ? Neuropathy ? IMMUNOLOGIST (ventriculoperitoneal) shunt status SURGICAL HISTORY Past Surgical [...] and Family: Not on file ? Attends [employer] Services: Not on file ? Active Member [...] LUNGS: Respirations (more content not included)... Normal [facility] Hemogramon 10-21-2021 Erythrocyte distribution width (RBC) [Ratio] 17.3 % High 11.5-14.5 [facility] Comment on above: Performed By: #### C OVAG #### [facility] [address] [place] [address] Hematocrit (Bld) [Volume fraction] 33.6 % Low 40.0-52.0 [facility] Comment on above: Performed By: #### C OVAG #### [facility] [address] [place] [address] Hemoglobin (Bld) [Mass/Vol] 10.9 g/dL Low 13.0-18.0 [facility] Comment on above: Performed By: #### C OVAG #### [facility] [address] [place] [address] MCH (RBC) [Entitic mass] 27.8 pg Normal 26.0-34.0 [facility] Comment on above: Performed By: #### C OVAG #### [facility] [address] [place] [address] MCHC 32.5 % Normal 32.0-36.0 [facility] Comment on above: Performed By: #### C OVAG #### [facility] [address] [place] [address] MCV (RBC) [Entitic vol] 85.6 fL Normal 80.0-98.0 [facility] Comment on above: Performed By: #### C OVAG #### [facility] [address] [place] [address] Platelet mean volume (Bld) [Entitic vol] 7.7 fL Normal 7.4-12.4 [facility] Comment on above: Result Comment: MPV is a calculated measurement using platelet volume ratio. Performed By: #### C OVAG #### [facility] [address] [place] [address] Platelets (Bld) [#/Vol] 404 10*3/uL Normal 140-440 [facility] Comment on above: Performed By: #### C OVAG #### [facility] [address] [place] [address] RBC (Bld) [#/Vol] 3.93 10*6/uL Low 4.40-5.90 [facility] Comment on above: Performed By: #### C OVAG #### [facility] [address] [place] [address] WBC (Bld) [#/Vol] 11.6 10*3/uL High 3.6-10.7 [facility] Comment on above: Performed By: #### C OVAG #### [facility] [address] [place] [address] Hemogram (CBC)on 10-21-2021 Hematocrit (Bld) [Volume fraction] 33.6 % Low 40.0 - 52.0 % [facility] Hemoglobin (Bld) [Mass/Vol] 10.9 g/dL Low 13.0 - 18.0 g/dL [facility] Interpretation and review of laboratory results [...] vol] 7.7 fL 7.4 - 12.4 fL [facility] Comment on above: MPV is a calculated measurement using platelet volume ratio. Platelets (Bld) [#/Vol] 404 10*3/uL 140 - 440 10*3/uL [facility] RBC (Bld) [#/Vol] 3.93 10*6/uL Low 4.40 - 5.9 0 10*6/uL [facility] WBC (Bld) [#/Vol] 11.6 10*3/uL High 3.6 - 10.7 10*3/uL [facility] Test Performed by [facility], [address], [place], [place] [id number] [place] [address] LAB [facility] NM LUNG VENT/PERFUSION (VQ)o n 10-21-2021 Patient Name: ANDREW SIFUENTES Nuclear Medicine ACCESSION EXAM DATE/TIME PROCEDURE ORDERING PROVIDER [id number] 10/21/2021 07:55 EDT NM Pulmonary Perfusion [id number] -SHAILESHMAY KNOWLES w/ Vent Aerosol CPT code 16598 A9567 Reason For Exam (NM Pulmonary Perfusion [...] JOHN Transcribed Date and Time: 10/21/2021 8:49 [facility] RAD Henry Harvey MD - 10/21/2021 Patient Name: ANDREW SIFUENTES Nuclear Medicine ACCESSION EXAM DATE/TIME PROCEDURE ORDERING PROVIDER [id number] 10/21/2021 07:55 EDT NM Pulmonary Perfusion [id number] MAY BOGGS w/ Vent Aerosol CPT code 21527 A9567 Reason For Exam (NM Pulmonary Perfusion [...] JOHN Transcribed Date and Time: 10/21/2021 8:49 [facility] Work Phone: NM LUNG VENT/PERFUSION (VQ)O rdered By: Henry Harvey on 10-21-2021 [facility] Work Phone: NM Pulmonary Perfusion w/ Ve nt Aerosol or Gason 10-21-2021 NM Pulmonary Perfusion w/ Vent Aerosol or Gas Patient Name: ANDREW SIFUENTES Nuclear Medicine ACCESSION EXAM DATE/TIME PROCEDURE ORDERING PROVIDER [id number] 10/21/2021 07:55 EDT NM Pulmonary Perfusion [id number] MAY BOGGS w/ Vent Aerosol CPT code 80682 A9567 Reason For Exam (NM Pulmonary Perfusion [...] Transcribed Date and Time: 10/21/2021 8:49 Normal [facility] No Panel Informationon 10-21 Radiology Study observation (narrative) [facility] Work Phone: Prothrombin Timeon 2 INR 1.1 Normal 0.9-1.1 [facility] Comment on above: Result Comment: Harry mmended [...] Infarction Performed By: #### C OVAG #### [facility] [address] [place] [address] PT Coag (PPP) [Time] 11.5 s Normal 9.0-12.0 [facility] Comment on above: Result Comment: . Performed By: #### C OVAG #### [facility] [address] [place] [address] Protime-INRon 10-21-2021 INR Coag (Bld) [Relative time] 1.1 {INR} [facility] Comment on above: Recommended Anticoag ulant [...] [Time] 11.5 s 9.0 - 12.0 s [facility] Comment on above: . Test Performed by [facility], [address] [place], [place] [id number] [place] [address] LAB [facility] Retic Count(%)on 10-21-2021 Retic Count(%) 1.6 Normal [facility] Comment on above: Result Comment: Newb orn < 5% Adults 0.5 - 1.5% Performed By: #### P T #### [facility] [address] [place] [address] Reticulocyteson 10-21-[address] Pct 1.6 [facility] Comment on above: < 5% Adults 0.5 - 1.5% Test Performed by [facility], [address], [place], [place] [id number] [place] [address] LAB [facility] Sed Rateon 10-21-2021 Sed Rate 63 mm/h High 0-10 [facility] Comment on above: Performed By: #### P T #### [facility] [address] [place] [address] Sedimentation Rateon 022 Interpretation and review of laboratory results Abnormal [facility] Sed Rate 63 mm/h High 0 - 10 mm/h [facility] Test Performed by [facility], [address], [place], [place] [id number] [place] [address] LAB [facility] VL CARMELLA Upr/L Extremity Art 1 -2 Levelson 10-21-2021 VL CARMELLA Upr/L Extremity Art 1-2 Levels Patient Name: ANDREW SIFUENTES Ultrasound ACCESSION EXAM DATE/TIME PROCEDURE ORDERING PROVIDER [id number] 10/21/2021 16:12 EDT VL Upr/L Extremity Art [id number] -SHRUTHI MALIK 1-2 Levels CPT code 04418 Reason For Exam (VL Upr/L Extremity Art 1-2 Levels) both lower legs CARMELLA for both feet wounds. Report [facility] Ankle Brachial Index Report Patient GurpreetRADHA: 1950 Study 10/21/2021 Name: Andrew Gonzalez (71yrs) Date: Age: 71 Account: [id number] Gender: M Loc: 444W BP: Ordering Physician: Shruthi Malik Nutrition Professor: Rody Cross RDMS, RVT Interpreting Physician: Carina Call Location: [facility] Indications: Foot wounds. Originally ordered as a full PVR. Ordering CLINICAL OPERATIONS LEADER had to modify the order to ABIs [...] supine position. Images were obtained using a iYogis vascular ultrasound machine. Arterial pressure indices: + [...] CARINA HENNESSY Cardiovascular ACCESSION EXAM DATE/TIME PROCEDURE [id number] 10/21/2021 16:12 EDT VL Upr/L Extremity Art 1-2 Levels CPT code 98582 Reason For Exam (VL Upr/L Extremity Art 1-2 Levels) both lower legs CARMELLA for both feet wounds. Report [facility] Ankle Brachial Index Report Patient DO GurpreetB: 1950 Study 10/21/2021 Name: Andrew Gonzalez (71yrs) Date: Age: 71 Account: [id number] Cardiovascular Report Gender: M Loc: 444W BP: Ordering Physician: Shruthi Malik Nutrition Professor: Rody Cross RDMS RVT Interpreting Physician: Carina Call Location: [facility] Indications: Foot wounds. Originally ordered as a full PVR. Ordering CLINICAL OPERATIONS LEADER had to modify the order to ABIs [...] in th (more content not included)... Normal [facility] VL LOWER EXTREMITY BILATERAL VENOUS DUPLEXon 10-21-2021 [facility] Lower Extremity Venous Duplex Report Patient DO GurpreetB: 1950 Study 10/21/2021 Name: Andrew Gonzalez (71yrs) Date: Age: 71 Account: [id number] Gender: M Loc: 444 BP: Ordering Physician: May Cash Nutrition Professor: Rody Cross RDMS, RVT Interpreting Physician: Carina Call Location: [facility] Indications: Bilateral lower leg edema. CRITICAL [...] supine position. Images were obtained using a iYogis vascular ultrasound machine. Venous flow and imaging: [...] +-------- --------+ + (more content not included)... [facility] Carina Call MD - 10/21/2021 [facility] Lower Extremity Venous Duplex Report Patient DO GurpreetB: 1950 Study 10/21/2021 Name: Andrew Gonzalez (71yrs) Date: Age: 71 Account: [id number] Gender: M Loc: 444 BP: Ordering Physician: May Cash Nutrition Professor: Rody Cross RDMS, RVT Interpreting Physician: Carina Call Location: [facility] Indications: Bilateral lower leg edema. CRITICAL [...] supine position. Images were obtained using a iYog[employer] vascular ultrasound machine. Venous flow and imaging: [...] + + +----- (more content not included)... [employer] Work Phone: VL LOWER EXTREMITY BILATERAL VENOUS DUPLEXOrdered By: Carina Call on 10-21-2021 [facility] Work Phone: VL Venous Duplex US Lower Ex t Bilateralon 10-21-2021 VL Venous Duplex US Lower Ext Bilateral Patient Name: ANDREW SIFUENTES Ultrasound ACCESSION EXAM DATE/TIME PROCEDURE ORDERING PROVIDER [id number] 10/21/2021 09:53 EDT VL Venous Duplex US [id number] -MAY CASH Lower Ext Bilateral CPT code 82652 Reason For Exam (VL Venous Duplex US Lower Ext Bilateral) bilateral sqwelling redness Report [facility] Lower Extremity Venous Duplex Report Patient DO GurpreetB: 1950 Study 10/21/2021 Name: Andrew Gonzalez (71yrs) Date: Age: 71 Account: [id number] Gender: M Loc: 444 BP: Ordering Physician: May Cash Nutrition Professor: Rody Cross RDMS, RVT Interpreting Physician: Carina Call Location: [facility] Indications: Bilateral lower leg edema. CRITICAL [...] supine position. Images were obtained using a iYog[employer] vascular ultrasound machine. Venous flow and imaging: [...] + + (more content not included)... Normal [facility] XR CALCANEUS LEFT (MIN 2 VIE WS)on 10-21-2021 Patient Name: ANDREW SIFUENTES Diagnostic Radiology ACCESSION EXAM DATE/TIME PROCEDURE ORDERING PROVIDER [id number] 10/21/2021 15:30 EDT CR Calcaneus 2+ Views [id number] -SHRUTHI MALIK CPT code 68044 Reason For Exam (CR Calcaneus 2+ Views [...] Date and Time: 10/21/2021 4:33 [facility] Alan Wong MD - 10/21/2021 [id number] Radiology ACCESSION EXAM DATE/TIME PROCEDURE ORDERING PROVIDER [id number] 10/21/2021 15:30 EDT CR Calcaneus 2+ Views [id number] -NAJMA SHRUTHI Left CPT code 92228 Reason For Exam (CR Calcaneus 2+ Views [...] J Transcribed Date and Time: 10/21/2021 4:33 [facility] Work Phone: XR CALCANEUS LEFT (MIN 2 VIE WS)Ordered By: Alan Wong on 10-21-2021 [facility] Work Phone: XR Chest 1 VWon 10-21-2021 Patient Name: ANDREW SIFUENTES Diagnostic Radiology ACCESSION EXAM DATE/TIME PROCEDURE ORDERING PROVIDER [id number] 10/21/2021 08:16 EDT CR Chest 1 View Frontal [id number] MAY BOGGS CPT code 86651 Reason For Exam (CR Chest 1 View [...] on --- Final --- Dictating Physician: MD OLYD WASSIM OSAMA Signed Date and Time: 10/21/2021 8:32 am Signed by: MD LOYD WASSIM OSAMA Transcribed Date and Time: 10/21/2021 8:33 [place] [facility] MD - 10/21/2021 Patient Name: ANDREW SIFUENTES Diagnostic Radiology ACCESSION EXAM DATE/TIME PROCEDURE ORDERING PROVIDER [id number] 10/21/2021 08:16 EDT CR Chest 1 View Frontal [id number] -MAY [facility] CPT code 25723 Reason For Exam (CR Chest 1 View [...] RAMOS Transcribed Date and Time: 10/21/2021 8:33 [facility] Work Phone: XR Chest 1 VWOrdered By: Natalie Loyd on 10-21-2021 [facility] Work Phone: Basophil percentageon 2021 Chloride [Moles/Vol] 108 mmol/L 98-107 [facility] Work Phone: [phone] Glucose [Mass/Vol] 93 mg/dL 74-[address] [facility] Work Phone: Potassium [Moles/Vol] 3.9 mmol/L 3.5-5.1 [facility] Work Phone: Sodium [Moles/Vol] 140 mmol/L 136-[address] [facility] Work Phone: WBC (Bld) [#/Vol] 8.7 10*3/uL 4.4-11.[address] [facility] Work Phone: Blood erythrocytes count (nu mber/volume)on 10-20-2021 RBC (Bld) [#/Vol] 3.63 10*6/uL 4.6-6.2 [facility] Work Phone: Blood hemoglobin measurement (mass/volume)on 10-20-2021 Hemoglobin (Bld) [Mass/Vol] 10.1 g/dL 13.0-16.5 [facility] Work Phone: Blood platelet mean volumeon 10-20-2021 Platelet mean volume (Bld) [Entitic vol] 9.8 fL 6.2-12.0 [facility] Work Phone: Determination of erythrocyte mean corpuscular volume (MCV)on 10-20-2021 MCV (RBC) [Entitic vol] 90.1 fL 80-94 [facility] Work Phone: Hematocrit Auto (Bld) [Volum e fraction]on 10-20-2021 Hematocrit (Bld) [Volume fraction] 32.7 % 40-54 [facility] Work Phone: Laboratory - Chemistry and C hemistry - challengeon 10-20-2021 CO2 [Moles/Vol] 25.0 mmol/L 21.0-32.0 [facility] Work Phone: Urea nitrogen/Creatinine [Mass ratio] 17.4 mg/mg 10-20 [facility] Work Phone: Laboratory - Hematology and Cell countson 10-20-2021 Erythrocyte distribution width (RBC) [Entitic vol] 52.1 fL 35.1-43.9 [facility] Work Phone: Erythrocyte distribution width (RBC) [Ratio] 15.6 % 11.6-14.6 [facility] Work Phone: MCH (RBC) [Entitic mass] 27.8 pg 27.0-32.0 [facility] Work Phone: MCHC Auto (RBC) [Mass/Vol]on 10-20-2021 MCHC (RBC) [Mass/Vol] 30.9 g/dL 32-36 [facility] Work Phone: No Panel Informationon 10-20 Estimated GFR (MDRD) Amer 133 mL/min >60 [facility] Work Phone: Comment on above: GFR Calc Estimated GFR (MDRD) Non-Af Amer 110 mL/min >60 [facility] Work Phone: Comment on above: Non- GFR Calc Platelets bldon 10-20-2021 Platelets (Bld) [#/Vol] 404 10*3/uL 150-450 [facility] Work Phone: Serum or plasma calcium oral urement (mass/volume)on 10-20-2021 Calcium [Mass/Vol] 9.1 mg/dL 8.5-10.1 [facility] Work Phone: Serum or plasma creatinine m easurement (mass/volume)on 10-20-2021 Creatinine [Mass/Vol] 0.75 mg/dL 0.70-1.30 [facility] Work Phone: Comment on above: The validity of the calculated GFR & GFRAA in patients over 70 years has not been determined. Clinical correlation is essential. Serum or plasma urea nitroge n measurement (mass/volume)on 10-20-2021 Urea nitrogen [Mass/Vol] 13 mg/dL 7-18 [facility] Work Phone: Thin prep Papanicolaou smear with manual screeningon 10-20-2021 Thin prep Papanicolaou smear with manual screening 7 5-15 [facility] Work Phone: CNPNon 10-17-2021 CNPN Normal [facility] Absolute lymphocyte counton 09-19-2021 Lymphocytes Auto (Unsp spec) [#/Vol] 1.74 10*3/uL 0.83-4.51 [facility] Work Phone: Basophil percentageon 2021 Basophils/100 WBC (Bld) 0.6 % 0-1 [facility] Work Phone: Bilirubin [Mass/Vol] 0.30 mg/dL 0.20-1.00 [facility] Work Phone: Comment on above: For patients on eltr ombopag therapy, use of Dimension [place] TBIL is not recommended. Chloride [Moles/Vol] 105 mmol/L 98-107 [facility] Work Phone: Eosinophils/100 WBC (Bld) 3.5 % 0-5 [facility] Work Phone: [phone] Glucose [Mass/Vol] 91 mg/dL 74-[address] [facility] Work Phone: Neutrophils (Bld) [#/Vol] 4.2 10*3/uL 2.0-7.7 [facility] Work Phone: Neutrophils/100 WBC (Bld) 62.6 % 47-70 [facility] Work Phone: [phone] Potassium [Moles/Vol] 3.8 mmol/L 3.5-5.1 [facility] Work Phone: Protein [Mass/Vol] 6.3 g/dL 6.4-8.[address] [facility] Work Phone: [phone] Sodium [Moles/Vol] 139 mmol/L 136-[address] [facility] Work Phone: [phone] WBC (Bld) [#/Vol] 6.6 10*3/uL 4.4-11.[address] [facility] Work Phone: [phone] Blood erythrocytes count (nu mber/volume)on 09-19-2021 RBC (Bld) [#/Vol] 3.47 10*6/uL 4.6-6.2 [facility] Work Phone: Blood hemoglobin measurement (mass/volume)on 09-19-2021 Hemoglobin (Bld) [Mass/Vol] 10.2 g/dL 13.0-16.5 [facility] Work Phone: Blood lymphocytes/100 leukoc yteson 09-19-2021 Lymphocytes/100 WBC (Bld) 26.2 % 19-41 [facility] Work Phone: Blood monocytes/100 leukocyt eson 09-19-2021 Monocytes/100 WBC (Bld) 6.5 % 0-10 [facility] Work Phone: Blood platelet mean volumeon 09-19-2021 Platelet mean volume (Bld) [Entitic vol] 9.6 fL 6.2-12.0 [facility] Work Phone: Determination of erythrocyte mean corpuscular volume (MCV)on 09-19-2021 MCV (RBC) [Entitic vol] 94.8 fL 80-94 [facility] Work Phone: Hematocrit Auto (Bld) [Volum e fraction]on 09-19-2021 Hematocrit (Bld) [Volume fraction] 32.9 % 40-54 [facility] Work Phone: Laboratory - Chemistry and C hemistry - challengeon 09-19-2021 ALP [Catalytic activity/Vol] 109 U/L 45-117 [facility] Work Phone: ALT [Catalytic activity/Vol] 23 U/L 16-61 [facility] Work Phone: CO2 [Moles/Vol] 26.0 mmol/L 21.0-32.0 [facility] Work Phone: Globulin (S) [Mass/Vol] 3.5 g/dL 2.2-4.2 [facility] Work Phone: Urea nitrogen/Creatinine [Mass ratio] 15.3 mg/mg 10-20 [facility] Work Phone: Laboratory - Hematology and Cell countson 09-19-2021 Erythrocyte distribution width (RBC) [Entitic vol] 59.4 fL 35.1-43.9 [facility] Work Phone: Erythrocyte distribution width (RBC) [Ratio] 17.1 % 11.6-14.6 [facility] Work Phone: Immature granulocytes/100 WBC (Bld) 0.600 % 0.0-0.9 [facility] Work Phone: Comment on above: IG% - Immature Granu locytes (promyelocytes, myelocytes and metamyelocytes) > 1% indicates that a LEFT SHIFT is Present. MCH (RBC) [Entitic mass] 29.4 pg 27.0-32.0 [facility] Work Phone: Nucleated RBC/100 WBC (Bld) [Ratio] 0 % 0-5 [facility] Work Phone: MCHC Auto (RBC) [Mass/Vol]on 09-19-2021 MCHC (RBC) [Mass/Vol] 31.0 g/dL 32-36 [facility] Work Phone: No Panel Informationon 09-19 Estimated GFR (MDRD) Amer 175 mL/min >60 [facility] Work Phone: Comment on above: GFR Calc Estimated GFR (MDRD) Non-Af Amer 145 mL/min >60 [facility] Work Phone: Comment on above: Non- GFR Calc Platelets bldon 09-19-2021 Platelets (Bld) [#/Vol] 342 10*3/uL 150-450 [facility] Work Phone: Serum or plasma albumin oral urement (mass/volume)on 09-19-2021 Albumin [Mass/Vol] 2.8 g/dL 3.2-5.[address] [facility] Work Phone: Serum or plasma albumin/glob ulin mass ratioon 09-19-2021 Albumin/Globulin [Mass ratio] 0.8 {ratio} 0.9-2.4 [facility] Work Phone: Serum or plasma calcium oral urement (mass/volume)on 09-19-2021 Calcium [Mass/Vol] 9.0 mg/dL 8.5-10.[address] [facility] Work Phone: Serum or plasma creatinine m easurement (mass/volume)on 09-19-2021 Creatinine [Mass/Vol] 0.59 mg/dL 0.70-1.30 [facility] Work Phone: Comment on above: The validity of the calculated GFR & GFRAA in patients over 70 years has not been determined. Clinical correlation is essential. Serum or plasma urea nitroge n measurement (mass/volume)on 09-19-2021 Urea nitrogen [Mass/Vol] 9 mg/dL 7-18 [facility] Work Phone: Thin prep Papanicolaou smear with manual screeningon 09-19-2021 Thin prep Papanicolaou smear with manual screening 12 U/L 15-37 [facility] Work Phone: Thin prep Papanicolaou smear with manual screening 8 5-15 [facility] Work Phone: OPERATIVE NOon 08-22-2021 OPERATIVE NO Normal [facility] Basic metabolic 2000 panelon 08-19-2021 Anion gap [Moles/Vol] 10 mmol/L Normal - [facility] Comment on above: Order Comment: Speci men Type: BLOOD SPECIMENOrdering Facility: [facility] Address: [address] [place] [address] Performed By: #### 2 4321-2 ####[facility] LABORATORYCLIA [id number] [place] [address] [place] Calcium [Mass/Vol] 8.6 mg/dL Normal 8.5-10.2 [facility] Comment on above: Order Comment: Speci men Type: BLOOD SPECIMENOrdering Facility: [facility] Address: [address] [place] [address] Performed By: #### 2 4321-2 ####[facility] LABORATORYCLIA [id number] [place] [address] [place] Chloride [Moles/Vol] 99 mmol/L Normal 97-105 [facility] Comment on above: Order Comment: Speci men Type: BLOOD SPECIMENOrdering Facility: [facility] Address: [address] [place] [address] Performed By: #### 2 4321-2 ####[facility] LABORATORYCLIA [id number] [place] [address] [place] CO2 [Moles/Vol] 29 mmol/L Normal 22-30 [facility] Comment on above: Order Comment: Speci men Type: BLOOD SPECIMENOrdering Facility: [facility] Address: [address] [address] Performed By: #### 2 4321-2 ####[facility] INDIANACLIA [id number] [address] STATES OF [facility] Creatinine [Mass/Vol] 0.58 mg/dL Low 0.73-1.22 [facility] Comment on above: Order Comment: Speci francia Type: BLOOD SPECIMENOrdering Facility: [facility] Address: [address] [address] Performed By: #### 2 4321-2 ####[facility] CRAWFORDSVILLEIA [id number] [address] ESTIMATED GLOMERULAR FILTRATION RATE 106 mL/min/1.73m??? Normal >=60 [facility] Comment on above: Order Comment: Shira feldman Type: BLOOD SPECIMENOrdering Facility: [facility] Address: [address] [place] [address] Result Comment: Luzmaria mated Glomerular Filtration Rate [...] actual GFR. Performed By: #### 2 4321-2 ####[facility] LABORATORYIA [id number] [address] [place] Glucose [Mass/Vol] 101 mg/dL High 74-99 [facility] Comment on above: Order Comment: Shira feldman Type: BLOOD SPECIMENOrdering Facility: [facility] Address: [address] [address] Result Comment: The [place] [employer] (ADA) provides guidance for cutoff [...] Standards of Medical Care in Diabetes 2016, [place] [employer]. Diabetes Care. 2016.39(Suppl 1). Performed By: #### 2 4321-2 ####[facility] LABORATORYCLIA [id number] [address] OF [facility] Potassium [Moles/Vol] 3.5 mmol/L Low 3.7-5.1 [facility] Comment on above: Order Comment: Speci men Type: BLOOD SPECIMENOrdering Facility: [facility] Address: [address] [place] [address] Performed By: #### 2 4321-2 ####[facility] LABORATORYCLIA [id number] [address] STATES [facility] Sodium [Moles/Vol] 138 mmol/L Normal 136-144 [facility] Comment on above: Order Comment: Speci men Type: BLOOD SPECIMENOrdering Facility: [facility] Address: [address] [place] [address] Performed By: #### 2 4321-2 ####[facility] LABORATORYCLIA [id number] [address] STATES [facility] Urea nitrogen [Mass/Vol] 11 mg/dL Normal 9-24 [facility] Comment on above: Order Comment: Speci men Type: BLOOD SPECIMENOrdering Facility: [facility] Address: [address] [place] [address] Performed By: #### 2 4321-2 ####[facility] LABORATORYCLIA [id number] [address] OF [facility] CASE MANAGEMon 08-19-2021 CASE MANAGEM Normal [facility] CBC W Auto Differential pane l (Bld)on 08-19-2021 Basophils (Bld) [#/Vol] 0.03 10*3/uL Normal <0.11 [facility] Comment on above: Order Comment: Speci men Type: BLOOD SPECIMENOrdering Facility: [facility] Address: [address] [place] [address] Performed By: #### 5 7021-8 ####[facility] LABORATORYCLIA [id number] [address] STATES [facility] Basophils/100 WBC (Bld) 0.4 % Normal [facility] Comment on above: Order Comment: Speci men Type: BLOOD SPECIMENOrdering Facility: [facility] Address: [address] [place] [address] Performed By: #### 5 7021-8 ####[facility]ORATORYCLIA [id number] [address] Differential cell count method Nom (Bld) Auto Normal [facility] Comment on above: Order Comment: Speci men Type: BLOOD SPECIMENOrdering Facility: [facility] Address: [address] [place] [address] Performed By: #### 5 7021-8 ####[facility] LABORATORYCLIA [id number] [address] Eosinophils (Bld) [#/Vol] 0.24 10*3/uL Normal <0.46 [facility] Comment on above: Order Comment: Speci men Type: BLOOD SPECIMENOrdering Facility: [facility] Address: [address] [place] [address] Performed By: #### 5 7021-8 ####[facility]ORATORYCLIA [id number] [address] Eosinophils/100 WBC (Bld) 3.1 % Normal [facility] Comment on above: Order Comment: Speci men Type: BLOOD SPECIMENOrdering Facility: [facility] Address: [address] [place] [address] Performed By: #### 5 7021-8 ####[facility]ORATORYCLIA [id number] [address] Erythrocyte distribution width (RBC) [Ratio] 17.5 % High 11.5-15.0 [facility] Comment on above: Order Comment: Speci men Type: BLOOD SPECIMENOrdering Facility: [facility] Address: [address] [place] [address] Performed By: #### 5 7021-8 ####[facility] LABORATORYCLIA [id number] [address] [facility] Hematocrit (Bld) [Volume fraction] 30.2 % Low 39.0-51.0 [facility] Comment on above: Order Comment: Speci men Type: BLOOD SPECIMENOrdering Facility: [facility] Address: [address] [place] [address] Performed By: #### 5 7021-8 ####[facility] LABORATORYCLIA [id number] [address] STATES OF [facility] Hemoglobin (Bld) [Mass/Vol] 9.6 g/dL Low 13.0-17.0 [facility] Comment on above: Order Comment: Speci men Type: BLOOD SPECIMENOrdering Facility: [facility] Address: [address] [place] [address] Performed By: #### 5 7021-8 ####[facility] LABORATORYCLIA [id number] [address] OF [facility] IMMATURE GRAN % 0.4 % Normal [facility] Comment on above: Order Comment: Speci men Type: BLOOD SPECIMENOrdering Facility: [facility] Address: [address] [place] [address] Performed By: #### 5 7021-8 ####[facility] LABORATORYCLIA [id number] [address] IMMATURE GRAN ABS 0.03 k/uL Normal <0.10 [facility] Comment on above: Order Comment: Speci men Type: BLOOD SPECIMENOrdering Facility: [facility] Address: [address] [place] [address] Performed By: #### 5 7021-8 ####[facility]ORATORYCLIA [id number] [address] [place] Lymphocytes (Bld) [#/Vol] 1.71 10*3/uL Normal 1.00-4.00 [facility] Comment on above: Order Comment: Speci men Type: BLOOD SPECIMENOrdering Facility: [facility] Address: [address] [place] [address] Performed By: #### 5 7021-8 ####[facility] LABORATORYCLIA [id number] [address] Lymphocytes/100 WBC (Bld) 22.2 % Normal [facility] Comment on above: Order Comment: Speci men Type: BLOOD SPECIMENOrdering Facility: [facility] Address: [address] [place] [address] Performed By: #### 5 7021-8 ####[facility] LABORATORYCLIA [id number] [address] MCH (RBC) [Entitic mass] 29.4 pg Normal 26.0-34.0 [facility] Comment on above: Order Comment: Speci men Type: BLOOD SPECIMENOrdering Facility: [facility] Address: [address] [place] [address] Performed By: #### 5 7021-8 ####[facility] LABORATORYCLIA [id number] [address] [place] MCHC (RBC) [Mass/Vol] 31.8 g/dL Normal 30.5-36.0 [facility] Comment on above: Order Comment: Speci men Type: BLOOD SPECIMENOrdering Facility: [facility] Address: [address] [place] [address] Performed By: #### 5 7021-8 ####[facility] LABORATORYCLIA [id number] [address] [place] MCV (RBC) [Entitic vol] 92.6 fL Normal 80.0-100.0 [facility] Comment on above: Order Comment: Speci men Type: BLOOD SPECIMENOrdering Facility: [facility] Address: [address] [address] Performed By: #### 5 7021-8 ####[facility]ORATORYCLIA [id number] [place] [address] [place] Monocytes (Bld) [#/Vol] 0.50 10*3/uL Normal <0.87 [facility] Comment on above: Order Comment: Speci men Type: BLOOD SPECIMENOrdering Facility: [facility] Address: [address] [place] [address] Performed By: #### 5 7021-8 ####[facility] LABORATORYCLIA [id number] [address] [place] Monocytes/100 WBC (Bld) 6.5 % Normal [facility] Comment on above: Order Comment: Speci men Type: BLOOD SPECIMENOrdering Facility: [facility] Address: [address] [place] [address] Performed By: #### 5 7021-8 ####[facility] LABORATORYCLIA [id number] [address] [place] Neutrophils (Bld) [#/Vol] 5.20 10*3/uL Normal 1.45-7.50 [facility] Comment on above: Order Comment: Speci men Type: BLOOD SPECIMENOrdering Facility: [facility] Address: [address] [place] [address] Performed By: #### 5 7021-8 ####[facility]ORATORYCLIA [id number] [address] [place] Neutrophils/100 WBC (Bld) 67.4 % Normal [facility] Comment on above: Order Comment: Speci men Type: BLOOD SPECIMENOrdering Facility: [facility] Address: [address] [place] [address] Performed By: #### 5 7021-8 ####[facility] LABORATORYCLIA [id number] [place] [address] [place] Nucleated RBC (Bld) [#/Vol] 10*3/uL Normal <0.01 [facility] Comment on above: Order Comment: Speci men Type: BLOOD SPECIMENOrdering Facility: [facility] Address: [address] [place] [address] Performed By: #### 5 7021-8 ####[facility] LABORATORYCLIA [id number] [address] OF [facility] Nucleated RBC/100 WBC (Bld) [Ratio] 0.0 /100 WBC Normal [facility] Comment on above: Order Comment: Speci men Type: BLOOD SPECIMENOrdering Facility: [facility] Address: [address] [place], [place] [address] Performed By: #### 5 7021-8 ####[facility] LABORATORYCLIA [id number] [address] [place] Platelet mean volume (Bld) [Entitic vol] 8.9 fL Low 9.0-12.7 [facility] Comment on above: Order Comment: Speci men Type: BLOOD SPECIMENOrdering Facility: [facility] Address: [address] [place], [place] [address] Performed By: #### 5 7021-8 ####[facility] LABORATORYCLIA [id number] [address] [place] Platelets (Bld) [#/Vol] 408 10*3/uL High 150-400 [facility] Comment on above: Order Comment: Speci men Type: BLOOD SPECIMENOrdering Facility: [facility] Address: [address] [place], [place] [address] Performed By: #### 5 7021-8 ####[facility] LABORATORYCLIA [id number] [address] [place] RBC (Bld) [#/Vol] 3.26 10*6/uL Low 4.20-6.00 [facility] Comment on above: Order Comment: Speci men Type: BLOOD SPECIMENOrdering Facility: [facility] Address: [address] [place], [place] [address] Performed By: #### 5 7021-8 ####[facility] LABORATORYCLIA [id number] [place] [address] [place] WBC (Bld) [#/Vol] 7.71 10*3/uL Normal 3.70-11.00 [facility] Comment on above: Order Comment: Speci men Type: BLOOD SPECIMENOrdering Facility: [facility] Address: [address] [place] [address] Performed By: #### 5 7021-8 ####[facility] LABORATORYCLIA [id number] [place] [address] [place] CNDSon 08-19-2021 CNDS Normal [facility] CONSULT PROGon 08-19-2021 CONSULT PROG Normal [facility] THERAPY NTon 08-19-2021 THERAPY NT Normal [facility] Basic metabolic 2000 panelon 08-18-2021 Anion gap [Moles/Vol] 11 mmol/L Normal 9-18 [facility] Comment on above: Order Comment: Speci men Type: BLOOD SPECIMENOrdering Facility: [facility] Address: [address] [place] [address] Performed By: #### 2 4321-2 ####[facility] LABORATORYCLIA [id number] [place] [address] [place] Calcium [Mass/Vol] 8.6 mg/dL Normal 8.5-10.2 [facility] Comment on above: Order Comment: Speci men Type: BLOOD SPECIMENOrdering Facility: [facility] Address: [address] [address] Performed By: #### 2 4321-2 ####[facility] LABORATORYCLIA [id number] [place] [address] [place] Chloride [Moles/Vol] 98 mmol/L Normal 97-105 [facility] Comment on above: Order Comment: Speci men Type: BLOOD SPECIMENOrdering Facility: [facility] Address: [address] [address] Performed By: #### 2 4321-2 ####[facility] LABORATORYCLIA [id number] [address] STATES OF [facility] CO2 [Moles/Vol] 28 mmol/L Normal 22-30 [facility] Comment on above: Order Comment: Speci men Type: BLOOD SPECIMENOrdering Facility: [facility] Address: [address] [place] [address] Performed By: #### 2 4321-2 ####[facility] LABORATORYCLIA [id number] [address] STATES OF [facility] Creatinine [Mass/Vol] 0.56 mg/dL Low 0.73-1.22 [facility] Comment on above: Order Comment: Speci men Type: BLOOD SPECIMENOrdering Facility: [facility] Address: [address] [place] [address] Performed By: #### 2 4321-2 ####[facility]DSV[facility]LEIA [id number] [address] ESTIMATED GLOMERULAR FILTRATION RATE 107 mL/min/1.73m??? Normal >=60 [facility] Comment on above: Order Comment: Speci men Type: BLOOD SPECIMENOrdering Facility: [facility] Address: [address] [place] [address] Result Comment: Luzmaria mated Glomerular Filtration Rate [...] actual GFR. Performed By: #### 2 4321-2 ####[facility] LABORATORYCLIA [id number] [address] [facility] Glucose [Mass/Vol] 113 mg/dL High 74-99 [facility] Comment on above: Order Comment: Speci men Type: BLOOD SPECIMENOrdering Facility: [facility] Address: [address] [place] [address] Result Comment: The [place] [employer] (ADA) provides guidance for cutoff [...] Standards of Medical Care in Diabetes 2016, [place] [employer]. Diabetes Care. 2016.39(Suppl 1). Performed By: #### 2 4321-2 ####[facility] LABORATORYCLIA [id number] [address] STATES OF [facility] Potassium [Moles/Vol] 3.5 mmol/L Low 3.7-5.1 [facility] Comment on above: Order Comment: Johni francia Type: BLOOD SPECIMENOrdering Facility: [facility] Address: [address] [place] [address] Performed By: #### 2 1-2 ####[facility] LABORATORYCLIA [id number] [address] STATES [facility] Sodium [Moles/Vol] 137 mmol/L Normal 136-144 [facility] Comment on above: Order Comment: Shira feldman Type: BLOOD SPECIMENOrdering Facility: [facility] Address: [address] [place] [address] Performed By: #### 2 4321-2 ####[facility] LABORATORYCLIA [id number] [address] STATES [facility] Urea nitrogen [Mass/Vol] 10 mg/dL Normal 9-24 [facility] Comment on above: Order Comment: Johni men Type: BLOOD SPECIMENOrdering Facility: [facility] Address: [facility] [address] Performed By: #### 2 4321-2 ####[facility] LABORATORYCLIA [id number] [address] [place] CBC W Auto Differential pane l (Bld)on 08-18-2021 Basophils (Bld) [#/Vol] 10*3/uL Normal <0.11 [facility] Comment on above: Order Comment: Speci men Type: BLOOD SPECIMENOrdering Facility: [facility] Address: [address] [place] [address] Performed By: #### 5 7021-8 ####[facility]ORATORYCLIA [id number] [address] [place] Basophils/100 WBC (Bld) 0.3 % Normal [facility] Comment on above: Order Comment: Speci men Type: BLOOD SPECIMENOrdering Facility: [facility] Address: [address] [place] [address] Performed By: #### 5 7021-8 ####[facility]ORATORYCLIA [id number] [address] [place] Differential cell count method Nom (Bld) Auto Normal [facility] Comment on above: Order Comment: Speci men Type: BLOOD SPECIMENOrdering Facility: [facility] Address: [address] [place] [address] Performed By: #### 5 7021-8 ####[facility]ORATORYCLIA [id number] [address] [place] Eosinophils (Bld) [#/Vol] 0.37 10*3/uL Normal <0.46 [facility] Comment on above: Order Comment: Speci men Type: BLOOD SPECIMENOrdering Facility: [facility] Address: [address] [place] [address] Performed By: #### 5 7021-8 ####[facility] LABORATORYCLIA [id number] [address] [place] Eosinophils/100 WBC (Bld) 4.8 % Normal [facility] Comment on above: Order Comment: Speci men Type: BLOOD SPECIMENOrdering Facility: [facility] Address: [address] [place] [address] Performed By: #### 5 7021-8 ####[facility]ORATORYCLIA [id number] [address] Erythrocyte distribution width (RBC) [Ratio] 17.5 % High 11.5-15.0 [facility] Comment on above: Order Comment: Speci men Type: BLOOD SPECIMENOrdering Facility: [facility] Address: [address] [place] [address] Performed By: #### 5 7021-8 ####[facility] LABORATORYCLIA [id number] [address] Hematocrit (Bld) [Volume fraction] 30.2 % Low 39.0-51.0 [facility] Comment on above: Order Comment: Speci men Type: BLOOD SPECIMENOrdering Facility: [facility] Address: [address] [place] [address] Performed By: #### 5 7021-8 ####[facility] LABORATORYCLIA [id number] [address] STATES OF [facility] Hemoglobin (Bld) [Mass/Vol] 9.5 g/dL Low 13.0-17.0 [facility] Comment on above: Order Comment: Speci men Type: BLOOD SPECIMENOrdering Facility: [facility] Address: [address] [place] [address] Performed By: #### 5 7021-8 ####[facility] LABORATORYCLIA [id number] [address] IMMATURE GRAN % 0.4 % Normal [facility] Comment on above: Order Comment: Speci men Type: BLOOD SPECIMENOrdering Facility: [facility] Address: [address] [place] [address] Performed By: #### 5 7021-8 ####[facility]ORATORYCLIA [id number] [address] IMMATURE GRAN ABS 0.03 k/uL Normal <0.10 [facility] Comment on above: Order Comment: Speci men Type: BLOOD SPECIMENOrdering Facility: [facility] Address: [address] [place], [place] [id number] Performed By: #### 5 7021-8 ####[facility] LABORATORYCLIA [id number] [address] [place] Lymphocytes (Bld) [#/Vol] 1.85 10*3/uL Normal 1.00-4.00 [facility] Comment on above: Order Comment: Speci men Type: BLOOD SPECIMENOrdering Facility: [facility] Address: [address] [place] [address] Performed By: #### 5 7021-8 ####[facility] LABORATORYCLIA [id number] [address] Lymphocytes/100 WBC (Bld) 23.8 % Normal [facility] Comment on above: Order Comment: Speci men Type: BLOOD SPECIMENOrdering Facility: [facility] Address: [address] [place] [address] Performed By: #### 5 7021-8 ####[facility] LABORATORYCLIA [id number] [address] STATES OF [facility] MCH (RBC) [Entitic mass] 29.5 pg Normal 26.0-34.0 [facility] Comment on above: Order Comment: Speci men Type: BLOOD SPECIMENOrdering Facility: [facility] Address: [address] [place] [address] Performed By: #### 5 7021-8 ####[facility] LABORATORYCLIA [id number] [address] [place] MCHC (RBC) [Mass/Vol] 31.5 g/dL Normal 30.5-36.0 [facility] Comment on above: Order Comment: Speci men Type: BLOOD SPECIMENOrdering Facility: [facility] Address: [address] [place] [address] Performed By: #### 5 7021-8 ####[facility] LABORATORYCLIA [id number] [address] [place] MCV (RBC) [Entitic vol] 93.8 fL Normal 80.0-100.0 [facility] Comment on above: Order Comment: Speci men Type: BLOOD SPECIMENOrdering Facility: [facility] Address: [address] [place] [address] Performed By: #### 5 7021-8 ####[facility]ORATORYCLIA [id number] [place] [address] [place] Monocytes (Bld) [#/Vol] 0.49 10*3/uL Normal <0.87 [facility] Comment on above: Order Comment: Speci men Type: BLOOD SPECIMENOrdering Facility: [facility] Address: [address] [place] [address] Performed By: #### 5 7021-8 ####[facility] LABORATORYCLIA [id number] [address] [place] Monocytes/100 WBC (Bld) 6.3 % Normal [facility] Comment on above: Order Comment: Speci men Type: BLOOD SPECIMENOrdering Facility: [facility] Address: [address] [place] [address] Performed By: #### 5 7021-8 ####[facility]ORATORYCLIA [id number] [place] [address] [place] Neutrophils (Bld) [#/Vol] 5.00 10*3/uL Normal 1.45-7.50 [facility] Comment on above: Order Comment: Speci men Type: BLOOD SPECIMENOrdering Facility: [facility] Address: [address] [place] [address] Performed By: #### 5 7021-8 ####[facility]ORATORYCLIA [id number] [place] [address] [place] Neutrophils/100 WBC (Bld) 64.4 % Normal [facility] Comment on above: Order Comment: Speci men Type: BLOOD SPECIMENOrdering Facility: [facility] Address: [address] [place] [address] Performed By: #### 5 7021-8 ####[facility]ORATORYCLIA [id number] [address] [place] Nucleated RBC (Bld) [#/Vol] 10*3/uL Normal <0.01 [facility] Comment on above: Order Comment: Speci men Type: BLOOD SPECIMENOrdering Facility: [facility] Address: [address] [place] [address] Performed By: #### 5 7021-8 ####[facility] LABORATORYCLIA [id number] [address] [place] Nucleated RBC/100 WBC (Bld) [Ratio] 0.0 /100 WBC Normal [facility] Comment on above: Order Comment: Speci men Type: BLOOD SPECIMENOrdering Facility: [facility] Address: [address] [place] [address] Performed By: #### 5 7021-8 ####[facility] LABORATORYCLIA [id number] [address] [place] Platelet mean volume (Bld) [Entitic vol] 9.1 fL Normal 9.0-12.7 [facility] Comment on above: Order Comment: Speci men Type: BLOOD SPECIMENOrdering Facility: [facility] Address: [address] [place] [address] Performed By: #### 5 7021-8 ####[facility] LABORATORYCLIA [id number] [address] [place] Platelets (Bld) [#/Vol] 391 10*3/uL Normal 150-400 [facility] Comment on above: Order Comment: Speci men Type: BLOOD SPECIMENOrdering Facility: [facility] Address: [address] [place] [address] Performed By: #### 5 7021-8 ####[facility] LABORATORYCLIA [id number] [address] [place] RBC (Bld) [#/Vol] 3.22 10*6/uL Low 4.20-6.00 [facility] Comment on above: Order Comment: Speci men Type: BLOOD SPECIMENOrdering Facility: [facility] Address: [address] [place] [address] Performed By: #### 5 7021-8 ####[facility] LABORATORYCLIA [id number] [place] [address] [place] WBC (Bld) [#/Vol] 7.76 10*3/uL Normal 3.70-11.00 [facility] Comment on above: Order Comment: Speci men Type: BLOOD SPECIMENOrdering Facility: [facility] Address: [address] [place] [address] Performed By: #### 5 7021-8 ####[facility] LABORATORYCLIA [id number] [address] [place] CONSULT PROGon 08-18-2021 CONSULT PROG Normal [facility] CASE MANAGEMon 08-17-2021 CASE MANAGEM Normal [facility] CBC W Auto Differential pane l (Bld)on 08-17-2021 Basophils (Bld) [#/Vol] 0.04 10*3/uL Normal <0.11 [facility] Comment on above: Order Comment: Speci men Type: BLOOD SPECIMENOrdering Facility: [facility] Address: [address] [place] [address] Performed By: #### 5 7021-8 ####[facility] LABORATORYCLIA [id number] [address] [place] Basophils/100 WBC (Bld) 0.5 % Normal [facility] Comment on above: Order Comment: Speci men Type: BLOOD SPECIMENOrdering Facility: [facility] Address: [address] [place] [address] Performed By: #### 5 7021-8 ####[facility] LABORATORYCLIA [id number] [address] [place] Differential cell count method Nom (Bld) Auto Normal [facility] Comment on above: Order Comment: Speci men Type: BLOOD SPECIMENOrdering Facility: [facility] Address: [address] [place] [address] Performed By: #### 5 7021-8 ####[facility]ATORYCLIA [id number] [address] [place] Eosinophils (Bld) [#/Vol] 0.31 10*3/uL Normal <0.46 [facility] Comment on above: Order Comment: Speci men Type: BLOOD SPECIMENOrdering Facility: [facility] Address: [address] [place] [address] Performed By: #### 5 7021-8 ####[facility] LABORATORYCLIA [id number] [address] Eosinophils/100 WBC (Bld) 3.7 % Normal [facility] Comment on above: Order Comment: Speci men Type: BLOOD SPECIMENOrdering Facility: [facility] Address: [address] [place] [address] Performed By: #### 5 7021-8 ####[facility] LABORATORYCLIA [id number] [address] Erythrocyte distribution width (RBC) [Ratio] 17.4 % High 11.5-15.0 [facility] Comment on above: Order Comment: Speci men Type: BLOOD SPECIMENOrdering Facility: [facility] Address: [address] [place] [address] Performed By: #### 5 7021-8 ####[facility] LABORATORYCLIA [id number] [address] Hematocrit (Bld) [Volume fraction] 30.6 % Low 39.0-51.0 [facility] Comment on above: Order Comment: Speci men Type: BLOOD SPECIMENOrdering Facility: [facility] Address: [address] [place] [address] Performed By: #### 5 7021-8 ####[facility] LABORATORYCLIA [id number] [address] Hemoglobin (Bld) [Mass/Vol] 9.6 g/dL Low 13.0-17.0 [facility] Comment on above: Order Comment: Speci men Type: BLOOD SPECIMENOrdering Facility: [facility] Address: [address] [place] [address] Performed By: #### 5 7021-8 ####[facility] LABORATORYCLIA [id number] [address] IMMATURE GRAN % 0.2 % Normal [facility] Comment on above: Order Comment: Speci men Type: BLOOD SPECIMENOrdering Facility: [facility] Address: [address] [place] [address] Performed By: #### 5 7021-8 ####[facility] LABORATORYCLIA [id number] [address] IMMATURE GRAN ABS <0.03 Normal <0.10 [facility] Comment on above: Order Comment: Speci men Type: BLOOD SPECIMENOrdering Facility: [facility] Address: [address] [place] [address] Performed By: #### 5 7021-8 ####[facility] LABORATORYCLIA [id number] [address] Lymphocytes (Bld) [#/Vol] 1.66 10*3/uL Normal 1.00-4.00 [facility] Comment on above: Order Comment: Speci men Type: BLOOD SPECIMENOrdering Facility: [facility] Address: [address] [place] [address] Performed By: #### 5 7021-8 ####[facility] LABORATORYCLIA [id number] [address] Lymphocytes/100 WBC (Bld) 19.9 % Normal [facility] Comment on above: Order Comment: Speci men Type: BLOOD SPECIMENOrdering Facility: [facility] Address: [address] [place] [address] Performed By: #### 5 7021-8 ####[facility] LABORATORYCLIA [id number] [address] [place] MCH (RBC) [Entitic mass] 28.9 pg Normal 26.0-34.0 [facility] Comment on above: Order Comment: Speci men Type: BLOOD SPECIMENOrdering Facility: [facility] Address: [address] [place] [address] Performed By: #### 5 7021-8 ####[facility]ORATORYCLIA [id number] [address] STATES OF [facility] MCHC (RBC) [Mass/Vol] 31.4 g/dL Normal 30.5-36.0 [facility] Comment on above: Order Comment: Speci men Type: BLOOD SPECIMENOrdering Facility: [facility] Address: [address] [place] [address] Performed By: #### 5 7021-8 ####[facility]ORATORYCLIA [id number] [address] [place] MCV (RBC) [Entitic vol] 92.2 fL Normal 80.0-100.0 [facility] Comment on above: Order Comment: Speci men Type: BLOOD SPECIMENOrdering Facility: [facility] Address: [address] [place] [address] Performed By: #### 5 7021-8 ####[facility] LABORATORYCLIA [id number] [address] STATES OF [facility] Monocytes (Bld) [#/Vol] 0.52 10*3/uL Normal <0.87 [facility] Comment on above: Order Comment: Speci men Type: BLOOD SPECIMENOrdering Facility: [facility] Address: [address] [place] [address] Performed By: #### 5 7021-8 ####[facility] LABORATORYCLIA [id number] [address] Monocytes/100 WBC (Bld) 6.2 % Normal [facility] Comment on above: Order Comment: Speci men Type: BLOOD SPECIMENOrdering Facility: [facility] Address: [address] [place] [address] Performed By: #### 5 7021-8 ####[facility] LABORATORYCLIA [id number] [address] [place] Neutrophils (Bld) [#/Vol] 5.78 10*3/uL Normal 1.45-7.50 [facility] Comment on above: Order Comment: Speci men Type: BLOOD SPECIMENOrdering Facility: [facility] Address: [address] [place] [address] Performed By: #### 5 7021-8 ####[facility] LABORATORYCLIA [id number] [address] [place] Neutrophils/100 WBC (Bld) 69.5 % Normal [facility] Comment on above: Order Comment: Speci men Type: BLOOD SPECIMENOrdering Facility: [facility] Address: [address] [place] [address] Performed By: #### 5 7021-8 ####[facility]ORATORYCLIA [id number] [address] [place] Nucleated RBC (Bld) [#/Vol] 10*3/uL Normal <0.01 [facility] Comment on above: Order Comment: Speci men Type: BLOOD SPECIMENOrdering Facility: [facility] Address: [address] [place] [address] Performed By: #### 5 7021-8 ####[facility]ORATORYCLIA [id number] [address] [place] Nucleated RBC/100 WBC (Bld) [Ratio] 0.0 /100 WBC Normal [facility] Comment on above: Order Comment: Speci men Type: BLOOD SPECIMENOrdering Facility: [facility] Address: [address] [place] [address] Performed By: #### 5 7021-8 ####[facility]ORATORYCLIA [id number] [address] [place] Platelet mean volume (Bld) [Entitic vol] 9.2 fL Normal 9.0-12.7 [facility] Comment on above: Order Comment: Speci men Type: BLOOD SPECIMENOrdering Facility: [facility] Address: [address] [place] [address] Performed By: #### 5 7021-8 ####[facility] LABORATORYCLIA [id number] [address] OF [facility] Platelets (Bld) [#/Vol] 379 10*3/uL Normal 150-400 [facility] Comment on above: Order Comment: Speci men Type: BLOOD SPECIMENOrdering Facility: [facility] Address: [address] [place] [address] Performed By: #### 5 7021-8 ####[facility] LABORATORYCLIA [id number] [place] [address] [place] RBC (Bld) [#/Vol] 3.32 10*6/uL Low 4.20-6.00 [facility] Comment on above: Order Comment: Speci men Type: BLOOD SPECIMENOrdering Facility: [facility] Address: [address] [place] [address] Performed By: #### 5 7021-8 ####[facility]ORATORYCLIA [id number] [address] [place] WBC (Bld) [#/Vol] 8.33 10*3/uL Normal 3.70-11.00 [facility] Comment on above: Order Comment: Speci men Type: BLOOD SPECIMENOrdering Facility: [facility] Address: [address] [place] [address] Performed By: #### 5 7021-8 ####[facility]ORATORYCLIA [id number] [address] CONSULT PROGon 08-17-2021 CONSULT PROG Normal [facility] NUTRITIONon 08-17-2021 NUTRITION Normal [facility] Basic metabolic 2000 panelon 08-16-2021 Anion gap [Moles/Vol] 14 mmol/L Normal 9-18 [facility] Comment on above: Order Comment: Speci men Type: BLOOD SPECIMENOrdering Facility: [facility] Address: [address] [place] [address] Performed By: #### 2 4320-2, ####[facility]ORATORYCLIA [id number] [place] [address] [place] Calcium [Mass/Vol] 8.8 mg/dL Normal 8.5-10.2 [facility] Comment on above: Order Comment: Speci men Type: BLOOD SPECIMENOrdering Facility: [facility] Address: [address] [place] [address] Performed By: #### 2 4320-2, ####[facility]ATORYCLIA [id number] [place] [address] [place] Chloride [Moles/Vol] 97 mmol/L Normal 97-105 [facility] Comment on above: Order Comment: Speci men Type: BLOOD SPECIMENOrdering Facility: [facility] Address: [address] [place] [address] Performed By: #### 2 4320-06, ####[facility] LABORATORYCLIA [id number] [address] [place] CO2 [Moles/Vol] 27 mmol/L Normal 22-30 [facility] Comment on above: Order Comment: Speci men Type: BLOOD SPECIMENOrdering Facility: [facility] Address: [address] [place] [address] Performed By: #### 2 4320-06, ####[facility] LABORATORYCLIA [id number] [place] [address] [place] Creatinine [Mass/Vol] 0.50 mg/dL Low 0.73-1.22 [facility] Comment on above: Order Comment: Speci men Type: BLOOD SPECIMENOrdering Facility: [facility] Address: [address] [place] [address] Performed By: #### 2 4320-2, ####[facility]ORYCLIA [id number] [address] [place] ESTIMATED GLOMERULAR FILTRATION RATE 110 mL/min/1.73m??? Normal >=60 [facility] Comment on above: Order Comment: Shira feldman Type: BLOOD SPECIMENOrdering Facility: [facility] Address: [address] [place] [address] Result Comment: Luzmaria mated Glomerular Filtration Rate [...] actual GFR. Performed By: #### 2 4321-2, 09138-3 ####[facility]ORATORYCLIA [id number] [place] [address] [place] Glucose [Mass/Vol] 101 mg/dL High 74-99 [facility] Comment on above: Order Comment: Shira feldman Type: BLOOD SPECIMENOrdering Facility: [facility] Address: [address] [place] [address] Result Comment: The [place] [employer] (ADA) provides guidance for cutoff [...] Standards of Medical Care in Diabetes 2016, [place] [employer]. Diabetes Care. 2016.39(Suppl 1). Performed By: #### 2 4321-2, 56810-6 ####[facility]ORATORYCLIA [id number] [place] [address] [place] Potassium [Moles/Vol] 3.6 mmol/L Low 3.7-5.1 [facility] Comment on above: Order Comment: Shira feldman Type: BLOOD SPECIMENOrdering Facility: [facility] Address: [address] [place] [address] Performed By: #### 2 4321-2, ####[facility]ATORYCLIA [id number] [address] STATES OF [facility] Sodium [Moles/Vol] 138 mmol/L Normal 136-144 [facility] Comment on above: Order Comment: Speci men Type: BLOOD SPECIMENOrdering Facility: [facility] Address: [address] [place] [address] Performed By: #### 2 432-2, ####[facility]ORATORYCLIA [id number] [place] [address] [place] Urea nitrogen [Mass/Vol] 11 mg/dL Normal 9-24 [facility] Comment on above: Order Comment: Speci men Type: BLOOD SPECIMENOrdering Facility: [facility] Address: [address] [place] [address] Performed By: #### 2 4320-06, ####[facility]ORATORYCLIA [id number] [address] [place] CASE MANAGEMon 08-16-2021 CASE MANAGEM Normal [facility] CBC W Auto Differential pane l (Bld)on 08-16-2021 Basophils (Bld) [#/Vol] 0.03 10*3/uL Normal <0.11 [facility] Comment on above: Order Comment: Speci men Type: BLOOD SPECIMENOrdering Facility: [facility] Address: [address] [place] [address] Performed By: #### 5 7021-8 ####[facility] LABORATORYCLIA [id number] [address] [place] Basophils/100 WBC (Bld) 0.4 % Normal [facility] Comment on above: Order Comment: Speci men Type: BLOOD SPECIMENOrdering Facility: [facility] Address: [address] [place] [address] Performed By: #### 5 7021-8 ####[facility]ATORYCLIA [id number] [address] Differential cell count method Nom (Bld) Auto Normal [facility] Comment on above: Order Comment: Speci men Type: BLOOD SPECIMENOrdering Facility: [facility] Address: [address] [place] [address] Performed By: #### 5 7021-8 ####[facility] LABORATORYCLIA [id number] [address] [place] Eosinophils (Bld) [#/Vol] 0.19 10*3/uL Normal <0.46 [facility] Comment on above: Order Comment: Speci men Type: BLOOD SPECIMENOrdering Facility: [facility] Address: [address] [place] [address] Performed By: #### 5 7021-8 ####[facility] LABORATORYCLIA [id number] [address] Eosinophils/100 WBC (Bld) 2.5 % Normal [facility] Comment on above: Order Comment: Speci men Type: BLOOD SPECIMENOrdering Facility: [facility] Address: [address] [place] [address] Performed By: #### 5 7021-8 ####[facility] LABORATORYCLIA [id number] [address] [place] Erythrocyte distribution width (RBC) [Ratio] 17.1 % High 11.5-15.0 [facility] Comment on above: Order Comment: Speci men Type: BLOOD SPECIMENOrdering Facility: [facility] Address: [address] [place] [address] Performed By: #### 5 7021-8 ####[facility] LABORATORYCLIA [id number] [address] [place] Hematocrit (Bld) [Volume fraction] 29.2 % Low 39.0-51.0 [facility] Comment on above: Order Comment: Speci men Type: BLOOD SPECIMENOrdering Facility: [facility] Address: [address] [place] [address] Performed By: #### 5 7021-8 ####[facility] LABORATORYCLIA [id number] [address] [place] Hemoglobin (Bld) [Mass/Vol] 9.0 g/dL Low 13.0-17.0 [facility] Comment on above: Order Comment: Speci men Type: BLOOD SPECIMENOrdering Facility: [facility] Address: [address] [place] [address] Performed By: #### 5 7021-8 ####[facility] LABORATORYCLIA [id number] [address] IMMATURE GRAN % 0.3 % Normal [facility] Comment on above: Order Comment: Speci men Type: BLOOD SPECIMENOrdering Facility: [facility] Address: [address] [place] [address] Performed By: #### 5 7021-8 ####[facility]ORATORYCLIA [id number] [address] IMMATURE GRAN ABS <0.03 Normal <0.10 [facility] Comment on above: Order Comment: Speci men Type: BLOOD SPECIMENOrdering Facility: [facility] Address: [address] [place] [address] Performed By: #### 5 7021-8 ####[facility] LABORATORYCLIA [id number] [address] [place] Lymphocytes (Bld) [#/Vol] 1.41 10*3/uL Normal 1.00-4.00 [facility] Comment on above: Order Comment: Speci men Type: BLOOD SPECIMENOrdering Facility: [facility] Address: [address] [place] [address] Performed By: #### 5 7021-8 ####[facility] LABORATORYCLIA [id number] [address] Lymphocytes/100 WBC (Bld) 18.4 % Normal [facility] Comment on above: Order Comment: Speci men Type: BLOOD SPECIMENOrdering Facility: [facility] Address: [address] [place] [address] Performed By: #### 5 7021-8 ####[facility] LABORATORYCLIA [id number] [address] MCH (RBC) [Entitic mass] 28.0 pg Normal 26.0-34.0 [facility] Comment on above: Order Comment: Speci men Type: BLOOD SPECIMENOrdering Facility: [facility] Address: [address] [place] [address] Performed By: #### 5 7021-8 ####[facility] LABORATORYCLIA [id number] MCHC (RBC) [Mass/Vol] 30.8 g/dL Normal 30.5-36.0 [facility] Comment on above: Order Comment: Speci men Type: BLOOD SPECIMENOrdering Facility: [facility] Address: [address] [place] [address] Performed By: #### 5 7021-8 ####[facility] LABORATORYCLIA [id number] [address] [place] OF [facility] MCV (RBC) [Entitic vol] 91.0 fL Normal 80.0-100.0 [facility] Comment on above: Order Comment: Speci men Type: BLOOD SPECIMENOrdering Facility: [facility] Address: [address] [place] [address] Performed By: #### 5 7021-8 ####[facility] LABORATORYCLIA [id number] [address] Monocytes (Bld) [#/Vol] 0.47 10*3/uL Normal <0.87 [facility] Comment on above: Order Comment: Speci men Type: BLOOD SPECIMENOrdering Facility: [facility] Address: [address] [place] [address] Performed By: #### 5 7021-8 ####[facility] LABORATORYCLIA [id number] [address] Monocytes/100 WBC (Bld) 6.1 % Normal [facility] Comment on above: Order Comment: Speci men Type: BLOOD SPECIMENOrdering Facility: [facility] Address: [facility] [place] [address] Performed By: #### 5 7021-8 ####[facility] LABORATORYCLIA [id number] [address] [place] Neutrophils (Bld) [#/Vol] 5.55 10*3/uL Normal 1.45-7.50 [facility] Comment on above: Order Comment: Speci men Type: BLOOD SPECIMENOrdering Facility: [facility] Address: [address] [place] [address] Performed By: #### 5 7021-8 ####[facility] LABORATORYCLIA [id number] [address] [place] Neutrophils/100 WBC (Bld) 72.3 % Normal [facility] Comment on above: Order Comment: Speci men Type: BLOOD SPECIMENOrdering Facility: [facility] Address: [address] [place] [address] Performed By: #### 5 7021-8 ####[facility] LABORATORYCLIA [id number] [address] [place] Nucleated RBC (Bld) [#/Vol] 10*3/uL Normal <0.01 [facility] Comment on above: Order Comment: Speci men Type: BLOOD SPECIMENOrdering Facility: [facility] Address: [address] [place] [address] Performed By: #### 5 7021-8 ####[facility] LABORATORYCLIA [id number] [address] [place] Nucleated RBC/100 WBC (Bld) [Ratio] 0.0 /100 WBC Normal [facility] Comment on above: Order Comment: Speci men Type: BLOOD SPECIMENOrdering Facility: [facility] Address: [address] [place] [address] Performed By: #### 5 7021-8 ####[facility] LABORATORYCLIA [id number] [address] [place] Platelet mean volume (Bld) [Entitic vol] 9.3 fL Normal 9.0-12.7 [facility] Comment on above: Order Comment: Speci men Type: BLOOD SPECIMENOrdering Facility: [facility] Address: [address] [place] [address] Performed By: #### 5 7021-8 ####[facility] LABORATORYCLIA [id number] [address] [place] Platelets (Bld) [#/Vol] 319 10*3/uL Normal 150-400 [facility] Comment on above: Order Comment: Speci men Type: BLOOD SPECIMENOrdering Facility: [facility] Address: [address] [place] [address] Performed By: #### 5 7021-8 ####[facility] LABORATORYCLIA [id number] [place] [address] [place] RBC (Bld) [#/Vol] 3.21 10*6/uL Low 4.20-6.00 [facility] Comment on above: Order Comment: Speci men Type: BLOOD SPECIMENOrdering Facility: [facility] Address: [address] [place] [address] Performed By: #### 5 7021-8 ####[facility] LABORATORYCLIA [id number] [place] [address] [place] WBC (Bld) [#/Vol] 7.67 10*3/uL Normal 3.70-11.00 [facility] Comment on above: Order Comment: Speci men Type: BLOOD SPECIMENOrdering Facility: [facility] Address: [address] [place] [address] Performed By: #### 5 7021-8 ####[facility] LABORATORYCLIA [id number] [place] [address] [place] Basophils (Bld) [#/Vol] 0.04 10*3/uL Normal <0.11 [facility] Comment on above: Order Comment: Speci men Type: BLOOD SPECIMENOrdering Facility: [facility] Address: [address] [place] [address] Performed By: #### 5 7021-8 ####[facility] LABORATORYCLIA [id number] [address] Basophils/100 WBC (Bld) 0.5 % Normal [facility] Comment on above: Order Comment: Speci men Type: BLOOD SPECIMENOrdering Facility: [facility] Address: [address] [place] [address] Performed By: #### 5 7021-8 ####[facility] LABORATORYCLIA [id number] [address] Differential cell count method Nom (Bld) Auto Normal [facility] Comment on above: Order Comment: Speci men Type: BLOOD SPECIMENOrdering Facility: [facility] Address: [address] [place] [address] Performed By: #### 5 7021-8 ####[facility] LABORATORYCLIA [id number] [address] [place] Eosinophils (Bld) [#/Vol] 0.19 10*3/uL Normal <0.46 [facility] Comment on above: Order Comment: Speci men Type: BLOOD SPECIMENOrdering Facility: [facility] Address: [address] [place] [address] Performed By: #### 5 7021-8 ####[facility] LABORATORYCLIA [id number] [address] Eosinophils/100 WBC (Bld) 2.5 % Normal [facility] Comment on above: Order Comment: Speci men Type: BLOOD SPECIMENOrdering Facility: [facility] Address: [address] [place] [address] Performed By: #### 5 7021-8 ####[facility] LABORATORYCLIA [id number] [address] [place] Erythrocyte distribution width (RBC) [Ratio] 17.2 % High 11.5-15.0 [facility] Comment on above: Order Comment: Speci men Type: BLOOD SPECIMENOrdering Facility: [facility] Address: [address] [place] [address] Performed By: #### 5 7021-8 ####[facility] LABORATORYCLIA [id number] [address] Hematocrit (Bld) [Volume fraction] 29.5 % Low 39.0-51.0 [facility] Comment on above: Order Comment: Speci men Type: BLOOD SPECIMENOrdering Facility: [facility] Address: [address] [place] [address] Performed By: #### 5 7021-8 ####[facility] LABORATORYCLIA [id number] [address] Hemoglobin (Bld) [Mass/Vol] 9.2 g/dL Low 13.0-17.0 [facility] Comment on above: Order Comment: Speci men Type: BLOOD SPECIMENOrdering Facility: [facility] Address: [address] [place] [address] Performed By: #### 5 7021-8 ####[facility] LABORATORYCLIA [id number] [address] IMMATURE GRAN % 0.4 % Normal [facility] Comment on above: Order Comment: Speci men Type: BLOOD SPECIMENOrdering Facility: [facility] Address: [address] [place] [address] Performed By: #### 5 7021-8 ####[facility] LABORATORYCLIA [id number] [address] IMMATURE GRAN ABS 0.03 k/uL Normal <0.10 [facility] Comment on above: Order Comment: Speci men Type: BLOOD SPECIMENOrdering Facility: [facility] Address: [address] [place] [address] Performed By: #### 5 7021-8 ####[facility] LABORATORYCLIA [id number] [address] Lymphocytes (Bld) [#/Vol] 1.50 10*3/uL Normal 1.00-4.00 [facility] Comment on above: Order Comment: Speci men Type: BLOOD SPECIMENOrdering Facility: [facility] Address: [address] [place] [address] Performed By: #### 5 7021-8 ####[facility] LABORATORYCLIA [id number] [address] Lymphocytes/100 WBC (Bld) 19.7 % Normal [facility] Comment on above: Order Comment: Speci men Type: BLOOD SPECIMENOrdering Facility: [facility] Address: [address] [place] [address] Performed By: #### 5 7021-8 ####[facility] LABORATORYCLIA [id number] [address] [place] MCH (RBC) [Entitic mass] 28.3 pg Normal 26.0-34.0 [facility] Comment on above: Order Comment: Speci men Type: BLOOD SPECIMENOrdering Facility: [facility] Address: [address] [place] [address] Performed By: #### 5 7021-8 ####[facility] LABORATORYCLIA [id number] [address] [place] MCHC (RBC) [Mass/Vol] 31.2 g/dL Normal 30.5-36.0 [facility] Comment on above: Order Comment: Speci men Type: BLOOD SPECIMENOrdering Facility: [facility] Address: [address] [place] [address] Performed By: #### 5 7021-8 ####[facility] LABORATORYCLIA [id number] [address] STATES [facility] MCV (RBC) [Entitic vol] 90.8 fL Normal 80.0-100.0 [facility] Comment on above: Order Comment: Speci men Type: BLOOD SPECIMENOrdering Facility: [facility] Address: [address] [place] [address] Performed By: #### 5 7021-8 ####[facility] LABORATORYCLIA [id number] [address] [place] Monocytes (Bld) [#/Vol] 0.49 10*3/uL Normal <0.87 [facility] Comment on above: Order Comment: Speci men Type: BLOOD SPECIMENOrdering Facility: [facility] Address: [address] [place] [address] Performed By: #### 5 7021-8 ####[facility] LABORATORYCLIA [id number] [address] [place] Monocytes/100 WBC (Bld) 6.4 % Normal [facility] Comment on above: Order Comment: Speci men Type: BLOOD SPECIMENOrdering Facility: [facility] Address: [address] [place] [address] Performed By: #### 5 7021-8 ####[facility] LABORATORYCLIA [id number] [address] [place] Neutrophils (Bld) [#/Vol] 5.38 10*3/uL Normal 1.45-7.50 [facility] Comment on above: Order Comment: Speci men Type: BLOOD SPECIMENOrdering Facility: [facility] Address: [address] [place] [address] Performed By: #### 5 7021-8 ####[facility] LABORATORYCLIA [id number] [address] [place] Neutrophils/100 WBC (Bld) 70.5 % Normal [facility] Comment on above: Order Comment: Speci men Type: BLOOD SPECIMENOrdering Facility: [facility] Address: [address] [place] [address] Performed By: #### 5 7021-8 ####[facility] LABORATORYCLIA [id number] [place] [address] [place] Nucleated RBC (Bld) [#/Vol] 10*3/uL Normal <0.01 [facility] Comment on above: Order Comment: Speci men Type: BLOOD SPECIMENOrdering Facility: [facility] Address: [address] [place] [address] Performed By: #### 5 7021-8 ####[facility] LABORATORYCLIA [id number] [address] [place] Nucleated RBC/100 WBC (Bld) [Ratio] 0.0 /100 WBC Normal [facility] Comment on above: Order Comment: Speci men Type: BLOOD SPECIMENOrdering Facility: [facility] Address: [address] [place] [address] Performed By: #### 5 7021-8 ####[facility] LABORATORYCLIA [id number] [place] [address] [place] Platelet mean volume (Bld) [Entitic vol] 9.0 fL Normal 9.0-12.7 [facility] Comment on above: Order Comment: Speci men Type: BLOOD SPECIMENOrdering Facility: [facility] Address: [address] [place] [address] Performed By: #### 5 7021-8 ####[facility] LABORATORYCLIA [id number] [place] [address] [place] Platelets (Bld) [#/Vol] 316 10*3/uL Normal 150-400 [facility] Comment on above: Order Comment: Speci men Type: BLOOD SPECIMENOrdering Facility: [facility] Address: [address] Performed By: #### 5 7021-8 ####[facility] LABORATORYCLIA [id number] [address] [place] RBC (Bld) [#/Vol] 3.25 10*6/uL Low 4.20-6.00 [facility] Comment on above: Order Comment: Speci men Type: BLOOD SPECIMENOrdering Facility: [facility] Address: [address] [place] [address] Performed By: #### 5 7021-8 ####[facility] LABORATORYCLIA [id number] [address] [place] WBC (Bld) [#/Vol] 7.63 10*3/uL Normal 3.70-11.00 [facility] Comment on above: Order Comment: Speci men Type: BLOOD SPECIMENOrdering Facility: [facility] Address: [address] [place] [address] Performed By: #### 5 7021-8 ####[facility] LABORATORYCLIA [id number] [address] [place] Basophils (Bld) [#/Vol] Normal <0.11 [facility] Comment on above: Order Comment: Speci men Type: BLOOD SPECIMENOrdering Facility: [facility] Address: [address] [place] [address] Result Comment: Carolina Owens RN informed lab after results autoverified that she rd on the wrong patient. Lab to credit. Nurse to redraw on correct patient.Corrected result: Previously reported as 0.04 k/uL on 08/16/2021 at 4:44 AM EDT. Performed By: #### 5 7021-8 ####[facility] LABORATORYCLIA [id number] [address] Basophils/100 WBC (Bld) Normal [facility] Comment on above: Order Comment: Speci men Type: BLOOD SPECIMENOrdering Facility: [facility] Address: [address] [place] [address] Result Comment: Tati ected result: Previously reported as 0.4 % on 08/16/2021 at 4:44 AM EDT. Performed By: #### 5 7021-8 ####[facility] LABORATORYCLIA [id number] [address] [place] CBC W Differential panel, method unspecified (Bld) Normal [facility] Comment on above: Order Comment: Speci men Type: BLOOD SPECIMENOrdering Facility: [facility] Address: [address] [place] [address] Result Comment: Carolina Owens RN informed lab after results autoverified that she rd on the wrong patient. Lab to credit. Nurse to redraw on correct patient. Performed By: #### 5 7021-8 ####[facility] LABORATORYCLIA [id number] [address] [place] Differential cell count method Nom (Bld) Normal [facility] Comment on above: Order Comment: Speci men Type: BLOOD SPECIMENOrdering Facility: [facility] Address: [address] [place] [address] Result Comment: Carolina Owens RN informed lab after results autoverified that she rd on the wrong patient. Lab to credit. Nurse to redraw on correct patient.Corrected result: Previously reported as Auto on 08/16/2021 at 4:44 AM EDT. Performed By: #### 5 7021-8 ####[facility] LABORATORYCLIA [id number] [address] [place] Eosinophils (Bld) [#/Vol] Normal <0.46 [facility] Comment on above: Order Comment: Speci men Type: BLOOD SPECIMENOrdering Facility: [facility] Address: [address] [place] [address] Result Comment: Carolina Owens RN informed lab after results autoverified that she rd on the wrong patient. Lab to credit. Nurse to redraw on correct patient.Corrected result: Previously reported as 0.07 k/uL on 08/16/2021 at 4:44 AM EDT. Performed By: #### 5 7021-8 ####[facility] LABORATORYCLIA [id number] [address] [place] Eosinophils/100 WBC (Bld) Normal [facility] Comment on above: Order Comment: Speci [facility] Type: BLOOD SPECIMENOrdering Facility: [facility] Address: [address] [place] [address] Result Comment: Carolina Owens RN informed lab after results autoverified that she rd on the wrong patient. Lab to credit. Nurse to redraw on correct patient.Corrected result: Previously reported as 0.7 % on 08/16/2021 at 4:44 AM EDT. Performed By: #### 5 7021-8 ####[facility] LABORATORYCLIA [id number] [address] Erythrocyte distribution width (RBC) [Ratio] Normal 11.5-15.0 [facility] Comment on above: Order Comment: Speci francia Type: BLOOD SPECIMENOrdering Facility: [facility] Address: [address] [place] [address] Result Comment: Carolina Owens RN informed lab after results autoverified that she rd on the wrong patient. Lab to credit. Nurse to redraw on correct patient.Corrected result: Previously reported as 14.2 % on 08/16/2021 at 4:44 AM EDT. Performed By: #### 5 7021-8 ####[facility] LABORATORYCLIA [id number] [address] Hematocrit (Bld) [Volume fraction] Normal 39.0-51.0 [facility] Comment on above: Order Comment: Speci francia Type: BLOOD SPECIMENOrdering Facility: [facility] Address: [address] [place] [address] Result Comment: Carolina Owens RN informed lab after results autoverified that she rd on the wrong patient. Lab to credit. Nurse to redraw on correct patient.Corrected result: Previously reported as 34.3 % on 08/16/2021 at 4:44 AM EDT. Performed By: #### 5 7021-8 ####[facility] LABORATORYCLIA [id number] [address] [facility] Hemoglobin (Bld) [Mass/Vol] Normal 13.0-17.0 [facility] Comment on above: Order Comment: Speci [facility] Type: BLOOD SPECIMENOrdering Facility: [facility] Address: [address] [place] [address] Result Comment: Carolina Owens RN informed lab after results autoverified that she rd on the wrong patient. Lab to credit. Nurse to redraw on correct patient.Corrected result: Previously reported as 11.2 g/dL on 08/16/2021 at 4:44 AM EDT. Performed By: #### 5 7021-8 ####[facility] LABORATORYCLIA [id number] [address] IMMATURE GRAN % Normal [facility] Comment on above: Order Comment: Speci men Type: BLOOD SPECIMENOrdering Facility: [facility] Address: [address] [place] [address] Result Comment: Carolina Owens RN informed lab after results autoverified that she rd on the wrong patient. Lab to credit. Nurse to redraw on correct patient.Corrected result: Previously reported as 0.8 % on 08/16/2021 at 4:44 AM EDT. Performed By: #### 5 7021-8 ####[facility] LABORATORYCLIA [id number] [address] IMMATURE GRAN ABS Normal <0.10 [facility] Comment on above: Order Comment: Speci men Type: BLOOD SPECIMENOrdering Facility: [facility] Address: [address] [place] [address] Result Comment: Tati ected result: Previously reported as 0.08 k/uL on 08/16/2021 at 4:44 AM EDT. Performed By: #### 5 7021-8 ####[facility] LABORATORYCLIA [id number] [place] [address] [place] Lymphocytes (Bld) [#/Vol] Normal 1.00-4.00 [facility] Comment on above: Order Comment: Speci [facility] Type: BLOOD SPECIMENOrdering Facility: [facility] Address: [address] [place] [address] Result Comment: Carolina Owens RN informed lab after results autoverified that she rd on the wrong patient. Lab to credit. Nurse to redraw on correct patient.Corrected result: Previously reported as 1.17 k/uL on 08/16/2021 at 4:44 AM EDT. Performed By: #### 5 7021-8 ####[facility] LABORATORYCLIA [id number] [place] [address] [place] Lymphocytes/100 WBC (Bld) Normal [facility] Comment on above: Order Comment: Speci men Type: BLOOD SPECIMENOrdering Facility: [facility] Address: [address] [place] [address] Result Comment: Carolina Owens RN informed lab after results autoverified that she rd on the wrong patient. Lab to credit. Nurse to redraw on correct patient.Corrected result: Previously reported as 12.0 % on 08/16/2021 at 4:44 AM EDT. Performed By: #### 5 7021-8 ####[facility] LABORATORYCLIA [id number] [address] [place] MCHC (RBC) [Mass/Vol] Normal 30.5-36.0 [facility] Comment on above: Order Comment: Speci men Type: BLOOD SPECIMENOrdering Facility: [facility] Address: [address] [place] [address] Result Comment: Carolina Owens RN informed lab after results autoverified that she rd on the wrong patient. Lab to credit. Nurse to redraw on correct patient.Corrected result: Previously reported as 32.7 g/dL on 08/16/2021 at 4:44 AM EDT. Performed By: #### 5 7021-8 ####[facility] LABORATORYCLIA [id number] [address] STATES OF [facility] MCV (RBC) [Entitic vol] Normal 80.0-100.0 [facility] Comment on above: Order Comment: Speci men Type: BLOOD SPECIMENOrdering Facility: [facility] Address: [address] [place] [address] Result Comment: Carolina Owens RN informed lab after results autoverified that she rd on the wrong patient. Lab to credit. Nurse to redraw on correct patient.Corrected result: Previously reported as 94.2 fL on 08/16/2021 at 4:44 AM EDT. Performed By: #### 5 7021-8 ####[facility] LABORATORYCLIA [id number] [place] [address] [place] Monocytes (Bld) [#/Vol] Normal <0.87 [facility] Comment on above: Order Comment: Speci francia Type: BLOOD SPECIMENOrdering Facility: [facility] Address: [address] [place] [address] Result Comment: Carolina Owens RN informed lab after results autoverified that she rd on the wrong patient. Lab to credit. Nurse to redraw on correct patient.Corrected result: Previously reported as 0.99 k/uL on 08/16/2021 at 4:44 AM EDT. Performed By: #### 5 7021-8 ####[facility] LABORATORYCLIA [id number] [place] [address] [place] Monocytes/100 WBC (Bld) Normal [facility] Comment on above: Order Comment: Speci francia Type: BLOOD SPECIMENOrdering Facility: [facility] Address: [address] [place] [address] Result Comment: Carolina Owens RN informed lab after results autoverified that she rd on the wrong patient. Lab to credit. Nurse to redraw on correct patient.Corrected result: Previously reported as 10.2 % on 08/16/2021 at 4:44 AM EDT. Performed By: #### 5 7021-8 ####[facility] LABORATORYCLIA [id number] [place] [address] [place] Neutrophils (Bld) [#/Vol] Normal 1.45-7.50 [facility] Comment on above: Order Comment: Speci francia Type: BLOOD SPECIMENOrdering Facility: [facility] Address: [address] [place] [address] Result Comment: Carolina Owens RN informed lab after results autoverified that she rd on the wrong patient. Lab to credit. Nurse to redraw on correct patient.Corrected result: Previously reported as 7.40 k/uL on 08/16/2021 at 4:44 AM EDT. Performed By: #### 5 7021-8 ####[facility] LABORATORYCLIA [id number] [place] [address] [place] Neutrophils/100 WBC (Bld) Normal [facility] Comment on above: Order Comment: Speci francia Type: BLOOD SPECIMENOrdering Facility: [facility] Address: [address] [place] [address] Result Comment: Carolina Owens RN informed lab after results autoverified that she rd on the wrong patient. Lab to credit. Nurse to redraw on correct patient.Corrected result: Previously reported as 75.9 % on 08/16/2021 at 4:44 AM EDT. Performed By: #### 5 7021-8 ####[facility] LABORATORYCLIA [id number] [address] [place] Platelet mean volume (Bld) [Entitic vol] Normal 9.0-12.7 [facility] Comment on above: Order Comment: Shira francia Type: BLOOD SPECIMENOrdering Facility: [facility] Address: [address] [place] [address] Result Comment: Carolina Owens RN informed lab after results autoverified that she rd on the wrong patient. Lab to credit. Nurse to redraw on correct patient.Corrected result: Previously reported as 9.1 fL on 08/16/2021 at 4:44 AM EDT. Performed By: #### 5 7021-8 ####[facility] LABORATORYCLIA [id number] [address] [place] Platelets (Bld) [#/Vol] Normal 150-400 [facility] Comment on above: Order Comment: Speci francia Type: BLOOD SPECIMENOrdering Facility: [facility] Address: [address] [place] [address] Result Comment: Carolina Owens RN informed lab after results autoverified that she rd on the wrong patient. Lab to credit. Nurse to redraw on correct patient.Corrected result: Previously reported as 338 k/uL on 08/16/2021 at 4:44 AM EDT. Performed By: #### 5 7021-8 ####[facility] LABORATORYCLIA [id number] [place] [address] [place] RBC (Bld) [#/Vol] Normal 4.20-6.00 [facility] Comment on above: Order Comment: Speci men Type: BLOOD SPECIMENOrdering Facility: [facility] Address: [address] [place] [address] Result Comment: Carolina Owens RN informed lab after results autoverified that she rd on the wrong patient. Lab to credit. Nurse to redraw on correct patient.Corrected result: Previously reported as 3.64 m/uL on 08/16/2021 at 4:44 AM EDT. Performed By: #### 5 7021-8 ####[facility] LABORATORYCLIA [id number] [address] STATES OF [facility] WBC (Bld) [#/Vol] Normal 3.70-11.00 [facility] Comment on above: Order Comment: Speci men Type: BLOOD SPECIMENOrdering Facility: [facility] Address: [address] [place] [address] Result Comment: Carolina Owens RN informed lab after results autoverified that she rd on the wrong patient. Lab to credit. Nurse to redraw on correct patient.Corrected result: Previously reported as 9.75 k/uL on 08/16/2021 at 4:44 AM EDT. Performed By: #### 5 7021-8 ####[facility] LABORATORYCLIA [id number] [address] CONSULT PROGon 08-16-2021 CONSULT PROG Normal [facility] Magnesium SerPl-mCncon 08-16 Magnesium [Mass/Vol] 1.8 mg/dL Normal 1.7-2.3 [facility] Comment on above: Order Comment: Speci men Type: BLOOD SPECIMENOrdering Facility: [facility] Address: [address] [place] [address] Performed By: #### 2 4321-2, 82162-0 ####[facility] LABORATORYCLIA [id number] [address] [place] NURSING PROGon 08-16-2021 NURSING PROG Normal [facility] Basic metabolic 2000 panelon 08-15-2021 Anion gap [Moles/Vol] 13 mmol/L Normal 9-18 [facility] Comment on above: Order Comment: Speci men Type: BLOOD SPECIMENOrdering Facility: [facility] Address: [address] [place] [address] Performed By: #### 2 4321-2 ####[facility] LABORATORYCLIA [id number] [place] [address] [place] Calcium [Mass/Vol] 9.0 mg/dL Normal 8.5-10.2 [facility] Comment on above: Order Comment: Speci men Type: BLOOD SPECIMENOrdering Facility: [facility] Address: [address] [place] [address] Performed By: #### 2 4321-2 ####[facility] LABORATORYCLIA [id number] [place] [address] [place] Chloride [Moles/Vol] 95 mmol/L Low 97-105 [facility] Comment on above: Order Comment: Speci men Type: BLOOD SPECIMENOrdering Facility: [facility] Address: [address] [place] [address] Performed By: #### 2 4321-2 ####[facility] LABORATORYCLIA [id number] [place] [address] [place] CO2 [Moles/Vol] 28 mmol/L Normal 22-30 [facility] Comment on above: Order Comment: Speci men Type: BLOOD SPECIMENOrdering Facility: [facility] Address: [address] [place] [address] Performed By: #### 2 4321-2 ####[facility] LABORATORYCLIA [id number] [place] [address] [place] Creatinine [Mass/Vol] 0.50 mg/dL Low 0.73-1.22 [facility] Comment on above: Order Comment: Speci men Type: BLOOD SPECIMENOrdering Facility: [facility] Address: [address] [place] [address] Performed By: #### 2 4321-2 ####[facility]ORATORYCLIA [id number] [place] [address] [place] ESTIMATED GLOMERULAR FILTRATION RATE 110 mL/min/1.73m??? Normal >=60 [facility] Comment on above: Order Comment: Shira feldman Type: BLOOD SPECIMENOrdering Facility: [facility] Address: [address] [place] [address] Result Comment: Luzmaria mated Glomerular Filtration Rate [...] Performed By: #### 2 4321-2 ####[facility] CRAWFORDSVILLEIA [id number] [place] [address] [place] Glucose [Mass/Vol] 106 mg/dL High 74-99 [facility] Comment on above: Order Comment: Shira feldman Type: BLOOD SPECIMENOrdering Facility: [facility] Address: [address] [place] [address] Result Comment: The [place] [employer] (ADA) provides guidance for cutoff [...] Standards of Medical Care in Diabetes 2016, [place] [employer]. Diabetes Care. 2016.39(Suppl 1). Performed By: #### 2 4321-2 ####[facility] LABORATORYCLIA [id number] [place] [address] [place] Potassium [Moles/Vol] 3.3 mmol/L Low 3.7-5.1 [facility] Comment on above: Order Comment: Speci men Type: BLOOD SPECIMENOrdering Facility: [facility] Address: [address] [place] [address] Performed By: #### 2 4321-2 ####[facility] LABORATORYCLIA [id number] [address] [place] Sodium [Moles/Vol] 136 mmol/L Normal 136-144 [facility] Comment on above: Order Comment: Speci men Type: BLOOD SPECIMENOrdering Facility: [facility] Address: [address] [place] [address] Performed By: #### 2 4321-2 ####[facility] LABORATORYCLIA [id number] [place] [address] [place] Urea nitrogen [Mass/Vol] 11 mg/dL Normal 9-24 [facility] Comment on above: Order Comment: Speci men Type: BLOOD SPECIMENOrdering Facility: [facility] Address: [address] [place] [address] Performed By: #### 2 4321-2 ####[facility] LABORATORYCLIA [id number] [address] [place] CASE MANAGEMon 08-15-2021 CASE MANAGEM Normal [facility] CBC W Auto Differential pane l (Bld)on 08-15-2021 Basophils (Bld) [#/Vol] 0.03 10*3/uL Normal <0.11 [facility] Comment on above: Order Comment: Speci men Type: BLOOD SPECIMENOrdering Facility: [facility] Address: [address] [place] [address] Performed By: #### 5 7021-8 ####[facility] LABORATORYCLIA [id number] [address] STATES [facility] Basophils/100 WBC (Bld) 0.4 % Normal [facility] Comment on above: Order Comment: Speci men Type: BLOOD SPECIMENOrdering Facility: [facility] Address: [address] [place] [address] Performed By: #### 5 7021-8 ####[facility] LABORATORYCLIA [id number] [address] Differential cell count method Nom (Bld) Auto Normal [facility] Comment on above: Order Comment: Speci men Type: BLOOD SPECIMENOrdering Facility: [facility] Address: [address] [place] [address] Performed By: #### 5 7021-8 ####[facility] LABORATORYCLIA [id number] [address] [place] Eosinophils (Bld) [#/Vol] 0.20 10*3/uL Normal <0.46 [facility] Comment on above: Order Comment: Speci men Type: BLOOD SPECIMENOrdering Facility: [facility] Address: [address] [place] [address] Performed By: #### 5 7021-8 ####[facility] LABORATORYCLIA [id number] [address] Eosinophils/100 WBC (Bld) 2.5 % Normal [facility] Comment on above: Order Comment: Speci men Type: BLOOD SPECIMENOrdering Facility: [facility] Address: [address] [place] [address] Performed By: #### 5 7021-8 ####[facility] LABORATORYCLIA [id number] [address] [place] Erythrocyte distribution width (RBC) [Ratio] 16.7 % High 11.5-15.0 [facility] Comment on above: Order Comment: Speci men Type: BLOOD SPECIMENOrdering Facility: [facility] Address: [address] [place] [address] Performed By: #### 5 7021-8 ####[facility] LABORATORYCLIA [id number] [address] Hematocrit (Bld) [Volume fraction] 30.3 % Low 39.0-51.0 [facility] Comment on above: Order Comment: Speci men Type: BLOOD SPECIMENOrdering Facility: [facility] Address: [address] [address] Performed By: #### 5 7021-8 ####[facility]ORATORYCLIA [id number] [address] [place] Hemoglobin (Bld) [Mass/Vol] 9.4 g/dL Low 13.0-17.0 [facility] Comment on above: Order Comment: Speci men Type: BLOOD SPECIMENOrdering Facility: [facility] Address: [address] [place] [address] Performed By: #### 5 7021-8 ####[facility] LABORATORYCLIA [id number] [address] IMMATURE GRAN % 0.4 % Normal [facility] Comment on above: Order Comment: Speci men Type: BLOOD SPECIMENOrdering Facility: [facility] Address: [address] [place] [address] Performed By: #### 5 7021-8 ####[facility] LABORATORYCLIA [id number] [address] IMMATURE GRAN ABS 0.03 k/uL Normal <0.10 [facility] Comment on above: Order Comment: Speci men Type: BLOOD SPECIMENOrdering Facility: [facility] Address: [address] [place] [address] Performed By: #### 5 7021-8 ####[facility] LABORATORYCLIA [id number] [address] [place] Lymphocytes (Bld) [#/Vol] 1.50 10*3/uL Normal 1.00-4.00 [facility] Comment on above: Order Comment: Speci men Type: BLOOD SPECIMENOrdering Facility: [facility] Address: [address] [place] [address] Performed By: #### 5 7021-8 ####[facility]ORATORYCLIA [id number] [address] [place] Lymphocytes/100 WBC (Bld) 18.5 % Normal [facility] Comment on above: Order Comment: Speci men Type: BLOOD SPECIMENOrdering Facility: [facility] Address: [address] [place] [address] Performed By: #### 5 7021-8 ####[facility] LABORATORYCLIA [id number] [address] MCH (RBC) [Entitic mass] 29.0 pg Normal 26.0-34.0 [facility] Comment on above: Order Comment: Speci men Type: BLOOD SPECIMENOrdering Facility: [facility] Address: [address] [place] [address] Performed By: #### 5 7021-8 ####[facility] LABORATORYCLIA [id number] [address] MCHC (RBC) [Mass/Vol] 31.0 g/dL Normal 30.5-36.0 [facility] Comment on above: Order Comment: Speci men Type: BLOOD SPECIMENOrdering Facility: [facility] Address: [address] [place] [address] Performed By: #### 5 7021-8 ####[facility] LABORATORYCLIA [id number] [address] MCV (RBC) [Entitic vol] 93.5 fL Normal 80.0-100.0 [facility] Comment on above: Order Comment: Speci men Type: BLOOD SPECIMENOrdering Facility: [facility] Address: [address] [place] [address] Performed By: #### 5 7021-8 ####[facility] LABORATORYCLIA [id number] [address] Monocytes (Bld) [#/Vol] 0.47 10*3/uL Normal <0.87 [facility] Comment on above: Order Comment: Speci men Type: BLOOD SPECIMENOrdering Facility: [facility] Address: [address] [place] [address] Performed By: #### 5 7021-8 ####[facility] LABORATORYCLIA [id number] [address] [place] Monocytes/100 WBC (Bld) 5.8 % Normal [facility] Comment on above: Order Comment: Speci men Type: BLOOD SPECIMENOrdering Facility: [facility] Address: [address] [place] [address] Performed By: #### 5 7021-8 ####[facility]ORATORYCLIA [id number] [place] [address] [place] Neutrophils (Bld) [#/Vol] 5.87 10*3/uL Normal 1.45-7.50 [facility] Comment on above: Order Comment: Speci men Type: BLOOD SPECIMENOrdering Facility: [facility] Address: [address] [place] [address] Performed By: #### 5 7021-8 ####[facility] LABORATORYCLIA [id number] [address] [place] Neutrophils/100 WBC (Bld) 72.4 % Normal [facility] Comment on above: Order Comment: Speci men Type: BLOOD SPECIMENOrdering Facility: [facility] Address: [address] [place] [address] Performed By: #### 5 7021-8 ####[facility] LABORATORYCLIA [id number] [place] [address] [place] Nucleated RBC (Bld) [#/Vol] 10*3/uL Normal <0.01 [facility] Comment on above: Order Comment: Speci men Type: BLOOD SPECIMENOrdering Facility: [facility] Address: [address] [place] [address] Performed By: #### 5 7021-8 ####[facility]ORATORYCLIA [id number] [address] [place] Nucleated RBC/100 WBC (Bld) [Ratio] 0.0 /100 WBC Normal [facility] Comment on above: Order Comment: Speci men Type: BLOOD SPECIMENOrdering Facility: [facility] Address: [address] [place] [address] Performed By: #### 5 7021-8 ####[facility] LABORATORYCLIA [id number] [address] [place] Platelet mean volume (Bld) [Entitic vol] 9.4 fL Normal 9.0-12.7 [facility] Comment on above: Order Comment: Speci men Type: BLOOD SPECIMENOrdering Facility: [facility] Address: [address] [place] [address] Performed By: #### 5 7021-8 ####[facility] LABORATORYCLIA [id number] [address] [place] Platelets (Bld) [#/Vol] 290 10*3/uL Normal 150-400 [facility] Comment on above: Order Comment: Speci men Type: BLOOD SPECIMENOrdering Facility: [facility] Address: [address] [place] [address] Performed By: #### 5 7021-8 ####[facility] LABORATORYCLIA [id number] [address] [place] RBC (Bld) [#/Vol] 3.24 10*6/uL Low 4.20-6.00 [facility] Comment on above: Order Comment: Speci men Type: BLOOD SPECIMENOrdering Facility: [facility] Address: [address] [place] [address] Performed By: #### 5 7021-8 ####[facility] LABORATORYCLIA [id number] [place] [address] [place] WBC (Bld) [#/Vol] 8.10 10*3/uL Normal 3.70-11.00 [facility] Comment on above: Order Comment: Speci men Type: BLOOD SPECIMENOrdering Facility: [facility] Address: [address] [place] [address] Performed By: #### 5 7021-8 ####[facility] LABORATORYCLIA [id number] [address] [place] THERAPY NTon 08-15-2021 THERAPY NT Normal [facility] THERAPY NT Normal [facility] THERAPY NT Normal [facility] Basic metabolic 2000 panelon 08-14-2021 Anion gap [Moles/Vol] 10 mmol/L Normal 9-18 [facility] Comment on above: Order Comment: Speci men Type: BLOOD SPECIMENOrdering Facility: [facility] Address: [address] [place] [address] Performed By: #### 2 4321-2 ####[facility] LABORATORYCLIA [id number] [place] [address] [place] Calcium [Mass/Vol] 8.8 mg/dL Normal 8.5-10.2 [facility] Comment on above: Order Comment: Speci men Type: BLOOD SPECIMENOrdering Facility: [facility] Address: [address] [place] [address] Performed By: #### 2 4321-2 ####[facility] LABORATORYCLIA [id number] [place] [address] [place] Chloride [Moles/Vol] 92 mmol/L Low 97-105 [facility] Comment on above: Order Comment: Speci men Type: BLOOD SPECIMENOrdering Facility: [facility] Address: [address] [place] [address] Performed By: #### 2 4321-2 ####[facility] LABORATORYCLIA [id number] [place] [address] [place] CO2 [Moles/Vol] 29 mmol/L Normal 22-30 [facility] Comment on above: Order Comment: Speci men Type: BLOOD SPECIMENOrdering Facility: [facility] Address: [address] [place] [address] Performed By: #### 2 4321-2 ####[facility] LABORATORYCLIA [id number] [place] [address] [place] Creatinine [Mass/Vol] 0.49 mg/dL Low 0.73-1.22 [facility] Comment on above: Order Comment: Speci men Type: BLOOD SPECIMENOrdering Facility: [facility] Address: [address] [place], [place] [id number] Performed By: #### 2 4321-2 ####[facility] LABORATORYCLIA [id number] [place] [id number] [place] ESTIMATED GLOMERULAR FILTRATION RATE 111 mL/min/1.73m??? Normal >=60 [facility] Comment on above: Order Comment: Speccara francia Type: BLOOD SPECIMENOrdering Facility: [facility] Address: [address] [address] Result Comment: Luzmaria mated Glomerular Filtration Rate [...] actual GFR. Performed By: #### 2 4321-2 ####[facility]NA[facility]IA [id number] [place] [address] [place] Glucose [Mass/Vol] 104 mg/dL High 74-99 [facility] Comment on above: Order Comment: Shira feldman Type: BLOOD SPECIMENOrdering Facility: [facility] Address: [address] [place] [address] Result Comment: The [place] [employer] (ADA) provides guidance for cutoff [...] Standards of Medical Care in Diabetes 2016, [place] [employer]. Diabetes Care. 2016.39(Suppl 1). Performed By: #### 2 4321-2 ####[facility] LABORATORYCLIA [id number] [place] [id number] [place] Potassium [Moles/Vol] 3.1 mmol/L Low 3.7-5.1 [facility] Comment on above: Order Comment: Speci men Type: BLOOD SPECIMENOrdering Facility: [facility] Address: [address] [place] [address] Performed By: #### 2 4321-2 ####[facility] LABORATORYCLIA [id number] [address] STATES OF [facility] Sodium [Moles/Vol] 131 mmol/L Low 136-144 [facility] Comment on above: Order Comment: Speci men Type: BLOOD SPECIMENOrdering Facility: [facility] Address: [address] [place] [address] Performed By: #### 2 4321-2 ####[facility] LABORATORYCLIA [id number] [address] STATES OF [facility] Urea nitrogen [Mass/Vol] 13 mg/dL Normal 9-24 [facility] Comment on above: Order Comment: Speci men Type: BLOOD SPECIMENOrdering Facility: [facility] Address: [address] [place] [address] Performed By: #### 2 4321-2 ####[facility] LABORATORYCLIA [id number] [address] [place] OF [facility] CBC W Auto Differential pane l (Bld)on 08-14-2021 Basophils (Bld) [#/Vol] 10*3/uL Normal <0.11 [facility] Comment on above: Order Comment: Speci men Type: BLOOD SPECIMENOrdering Facility: [facility] Address: [address] [place] [address] Performed By: #### 5 7021-8 ####[facility] LABORATORYCLIA [id number] [address] STATES [facility] Basophils/100 WBC (Bld) 0.2 % Normal [facility] Comment on above: Order Comment: Speci men Type: BLOOD SPECIMENOrdering Facility: [facility] Address: [address] [place] [address] Performed By: #### 5 7021-8 ####[facility]ORATORYCLIA [id number] [address] Differential cell count method Nom (Bld) Auto Normal [facility] Comment on above: Order Comment: Speci men Type: BLOOD SPECIMENOrdering Facility: [facility] Address: [address] [place] [address] Performed By: #### 5 7021-8 ####[facility]ATORYCLIA [id number] [address] Eosinophils (Bld) [#/Vol] 0.23 10*3/uL Normal <0.46 [facility] Comment on above: Order Comment: Speci men Type: BLOOD SPECIMENOrdering Facility: [facility] Address: [address] [place] [address] Performed By: #### 5 7021-8 ####[facility] LABORATORYCLIA [id number] [address] Eosinophils/100 WBC (Bld) 2.7 % Normal [facility] Comment on above: Order Comment: Speci men Type: BLOOD SPECIMENOrdering Facility: [facility] Address: [address] [place] [address] Performed By: #### 5 7021-8 ####[facility] LABORATORYCLIA [id number] [address] Erythrocyte distribution width (RBC) [Ratio] 16.6 % High 11.5-15.0 [facility] Comment on above: Order Comment: Speci men Type: BLOOD SPECIMENOrdering Facility: [facility] Address: [address] [place] [address] Performed By: #### 5 7021-8 ####[facility] LABORATORYCLIA [id number] [address] Hematocrit (Bld) [Volume fraction] 28.6 % Low 39.0-51.0 [facility] Comment on above: Order Comment: Speci men Type: BLOOD SPECIMENOrdering Facility: [facility] Address: [address] [place] [address] Performed By: #### 5 7021-8 ####[facility] LABORATORYCLIA [id number] [address] STATES OF [facility] Hemoglobin (Bld) [Mass/Vol] 9.0 g/dL Low 13.0-17.0 [facility] Comment on above: Order Comment: Speci men Type: BLOOD SPECIMENOrdering Facility: [facility] Address: [address] [place] [address] Performed By: #### 5 7021-8 ####[facility] LABORATORYCLIA [id number] [address] IMMATURE GRAN % 0.2 % Normal [facility] Comment on above: Order Comment: Speci men Type: BLOOD SPECIMENOrdering Facility: [facility] Address: [address] [place] [address] Performed By: #### 5 7021-8 ####[facility] LABORATORYCLIA [id number] [address] IMMATURE GRAN ABS <0.03 Normal <0.10 [facility] Comment on above: Order Comment: Speci men Type: BLOOD SPECIMENOrdering Facility: [facility] Address: [address] [place] [address] Performed By: #### 5 7021-8 ####[facility] LABORATORYCLIA [id number] [address] [place] Lymphocytes (Bld) [#/Vol] 1.33 10*3/uL Normal 1.00-4.00 [facility] Comment on above: Order Comment: Speci men Type: BLOOD SPECIMENOrdering Facility: [facility] Address: [address] [place] [address] Performed By: #### 5 7021-8 ####[facility] LABORATORYCLIA [id number] [address] Lymphocytes/100 WBC (Bld) 15.6 % Normal [facility] Comment on above: Order Comment: Speci men Type: BLOOD SPECIMENOrdering Facility: [facility] Address: [address] [place] [address] Performed By: #### 5 7021-8 ####[facility] LABORATORYCLIA [id number] [address] MCH (RBC) [Entitic mass] 29.0 pg Normal 26.0-34.0 [facility] Comment on above: Order Comment: Speci men Type: BLOOD SPECIMENOrdering Facility: [facility] Address: [address] [place] [address] Performed By: #### 5 7021-8 ####[facility] LABORATORYCLIA [id number] [address] STATES [facility] MCHC (RBC) [Mass/Vol] 31.5 g/dL Normal 30.5-36.0 [facility] Comment on above: Order Comment: Speci men Type: BLOOD SPECIMENOrdering Facility: [facility] Address: [address] [place] [address] Performed By: #### 5 7021-8 ####[facility] LABORATORYCLIA [id number] [address] MCV (RBC) [Entitic vol] 92.3 fL Normal 80.0-100.0 [facility] Comment on above: Order Comment: Speci men Type: BLOOD SPECIMENOrdering Facility: [facility] Address: [address] [place] [address] Performed By: #### 5 7021-8 ####[facility] LABORATORYCLIA [id number] [address] Monocytes (Bld) [#/Vol] 0.44 10*3/uL Normal <0.87 [facility] Comment on above: Order Comment: Speci men Type: BLOOD SPECIMENOrdering Facility: [facility] Address: [address] [place] [address] Performed By: #### 5 7021-8 ####[facility] LABORATORYCLIA [id number] [address] [place] Monocytes/100 WBC (Bld) 5.2 % Normal [facility] Comment on above: Order Comment: Speci men Type: BLOOD SPECIMENOrdering Facility: [facility] Address: [address] [place] [address] Performed By: #### 5 7021-8 ####[facility] LABORATORYCLIA [id number] [place] [address] [place] Neutrophils (Bld) [#/Vol] 6.46 10*3/uL Normal 1.45-7.50 [facility] Comment on above: Order Comment: Speci men Type: BLOOD SPECIMENOrdering Facility: [facility] Address: [address] [place] [address] Performed By: #### 5 7021-8 ####[facility] LABORATORYCLIA [id number] [address] [place] Neutrophils/100 WBC (Bld) 76.1 % Normal [facility] Comment on above: Order Comment: Speci men Type: BLOOD SPECIMENOrdering Facility: [facility] Address: [address] [place] [address] Performed By: #### 5 7021-8 ####[facility] LABORATORYCLIA [id number] [place] [address] [place] Nucleated RBC (Bld) [#/Vol] 10*3/uL Normal <0.01 [facility] Comment on above: Order Comment: Speci men Type: BLOOD SPECIMENOrdering Facility: [facility] Address: [address] [place] [address] Performed By: #### 5 7021-8 ####[facility] LABORATORYCLIA [id number] [address] [place] Nucleated RBC/100 WBC (Bld) [Ratio] 0.0 /100 WBC Normal [facility] Comment on above: Order Comment: Speci men Type: BLOOD SPECIMENOrdering Facility: [facility] Address: [address] [place] [address] Performed By: #### 5 7021-8 ####[facility] LABORATORYCLIA [id number] [address] STATES [facility] Platelet mean volume (Bld) [Entitic vol] 9.5 fL Normal 9.0-12.7 [facility] Comment on above: Order Comment: Speci men Type: BLOOD SPECIMENOrdering Facility: [facility] Address: [address] [place] [address] Performed By: #### 5 7021-8 ####[facility] LABORATORYCLIA [id number] [address] [place] Platelets (Bld) [#/Vol] 247 10*3/uL Normal 150-400 [facility] Comment on above: Order Comment: Speci men Type: BLOOD SPECIMENOrdering Facility: [facility] Address: [address] [place] [address] Performed By: #### 5 7021-8 ####[facility] LABORATORYCLIA [id number] [address] [place] RBC (Bld) [#/Vol] 3.10 10*6/uL Low 4.20-6.00 [facility] Comment on above: Order Comment: Speci men Type: BLOOD SPECIMENOrdering Facility: [facility] Address: [address] [place] [address] Performed By: #### 5 7021-8 ####[facility] LABORATORYCLIA [id number] [place] [address] [place] WBC (Bld) [#/Vol] 8.50 10*3/uL Normal 3.70-11.00 [facility] Comment on above: Order Comment: Speci men Type: BLOOD SPECIMENOrdering Facility: [facility] Address: [address] [place] [address] Performed By: #### 5 7021-8 ####[facility] LABORATORYCLIA [id number] [address] [place] CONSULTon 08-14-2021 CONSULT Normal [facility] NURSING PROGon 08-14-2021 NURSING PROG Normal [facility] CBC W Auto Differential pane l (Bld)on 08-13-2021 Basophils (Bld) [#/Vol] 10*3/uL Normal <0.11 [facility] Comment on above: Order Comment: Speci men Type: BLOOD SPECIMENOrdering Facility: [facility] Address: [address] [place] [address] Performed By: #### 5 7021-8 ####[facility] LABORATORYCLIA [id number] [address] [place] Basophils/100 WBC (Bld) 0.2 % Normal [facility] Comment on above: Order Comment: Speci men Type: BLOOD SPECIMENOrdering Facility: [facility] Address: [address] [place] [address] Performed By: #### 5 7021-8 ####[facility] LABORATORYCLIA [id number] [address] [place] Differential cell count method Nom (Bld) Auto Normal [facility] Comment on above: Order Comment: Speci men Type: BLOOD SPECIMENOrdering Facility: [facility] Address: [address] [place] [address] Performed By: #### 5 7021-8 ####[facility] LABORATORYCLIA [id number] [place] [address] [place] Eosinophils (Bld) [#/Vol] 0.31 10*3/uL Normal <0.46 [facility] Comment on above: Order Comment: Speci men Type: BLOOD SPECIMENOrdering Facility: [facility] Address: [address] [place] [address] Performed By: #### 5 7021-8 ####[facility] LABORATORYCLIA [id number] [address] [place] Eosinophils/100 WBC (Bld) 3.7 % Normal [facility] Comment on above: Order Comment: Speci men Type: BLOOD SPECIMENOrdering Facility: [facility] Address: [address] [place] [address] Performed By: #### 5 7021-8 ####[facility] LABORATORYCLIA [id number] [address] Erythrocyte distribution width (RBC) [Ratio] 16.6 % High 11.5-15.0 [facility] Comment on above: Order Comment: Speci men Type: BLOOD SPECIMENOrdering Facility: [facility] Address: [address] [place] [address] Performed By: #### 5 7021-8 ####[facility] LABORATORYCLIA [id number] [address] Hematocrit (Bld) [Volume fraction] 27.5 % Low 39.0-51.0 [facility] Comment on above: Order Comment: Speci men Type: BLOOD SPECIMENOrdering Facility: [facility] Address: [address] [place] [address] Performed By: #### 5 7021-8 ####[facility] LABORATORYCLIA [id number] [address] Hemoglobin (Bld) [Mass/Vol] 8.4 g/dL Low 13.0-17.0 [facility] Comment on above: Order Comment: Speci men Type: BLOOD SPECIMENOrdering Facility: [facility] Address: [address] [place] [address] Performed By: #### 5 7021-8 ####[facility] LABORATORYCLIA [id number] [address] IMMATURE GRAN % 0.5 % Normal [facility] Comment on above: Order Comment: Speci men Type: BLOOD SPECIMENOrdering Facility: [facility] Address: [address] [place] [address] Performed By: #### 5 7021-8 ####[facility] LABORATORYCLIA [id number] [address] IMMATURE GRAN ABS 0.04 k/uL Normal <0.10 [facility] Comment on above: Order Comment: Speci men Type: BLOOD SPECIMENOrdering Facility: [facility] Address: [address] [place] [address] Performed By: #### 5 7021-8 ####[facility] LABORATORYCLIA [id number] [address] OF [facility] Lymphocytes (Bld) [#/Vol] 1.55 10*3/uL Normal 1.00-4.00 [facility] Comment on above: Order Comment: Speci men Type: BLOOD SPECIMENOrdering Facility: [facility] Address: [address] [place] [address] Performed By: #### 5 7021-8 ####[facility] LABORATORYCLIA [id number] [address] Lymphocytes/100 WBC (Bld) 18.7 % Normal [facility] Comment on above: Order Comment: Speci men Type: BLOOD SPECIMENOrdering Facility: [facility] Address: [address] [place] [address] Performed By: #### 5 7021-8 ####[facility] LABORATORYCLIA [id number] [address] [place] MCH (RBC) [Entitic mass] 28.9 pg Normal 26.0-34.0 [facility] Comment on above: Order Comment: Speci men Type: BLOOD SPECIMENOrdering Facility: [facility] Address: [address] [place] [address] Performed By: #### 5 7021-8 ####[facility] LABORATORYCLIA [id number] [address] [place] MCHC (RBC) [Mass/Vol] 30.5 g/dL Normal 30.5-36.0 [facility] Comment on above: Order Comment: Speci men Type: BLOOD SPECIMENOrdering Facility: [facility] Address: [address] [place] [address] Performed By: #### 5 7021-8 ####[facility] LABORATORYCLIA [id number] [address] [place] MCV (RBC) [Entitic vol] 94.5 fL Normal 80.0-100.0 [facility] Comment on above: Order Comment: Speci men Type: BLOOD SPECIMENOrdering Facility: [facility] Address: [address] [place] [address] Performed By: #### 5 7021-8 ####[facility] LABORATORYCLIA [id number] [place] [address] [place] Monocytes (Bld) [#/Vol] 0.47 10*3/uL Normal <0.87 [facility] Comment on above: Order Comment: Speci men Type: BLOOD SPECIMENOrdering Facility: [facility] Address: [address] [place] [address] Performed By: #### 5 7021-8 ####[facility] LABORATORYCLIA [id number] [address] [place] Monocytes/100 WBC (Bld) 5.7 % Normal [facility] Comment on above: Order Comment: Speci men Type: BLOOD SPECIMENOrdering Facility: [facility] Address: [address] [place] [address] Performed By: #### 5 7021-8 ####[facility] LABORATORYCLIA [id number] [address] [place] Neutrophils (Bld) [#/Vol] 5.92 10*3/uL Normal 1.45-7.50 [facility] Comment on above: Order Comment: Speci men Type: BLOOD SPECIMENOrdering Facility: [facility] Address: [address] [place] [address] Performed By: #### 5 7021-8 ####[facility] LABORATORYCLIA [id number] [address] [place] Neutrophils/100 WBC (Bld) 71.2 % Normal [facility] Comment on above: Order Comment: Speci men Type: BLOOD SPECIMENOrdering Facility: [facility] Address: [address] [place] [address] Performed By: #### 5 7021-8 ####[facility] LABORATORYCLIA [id number] [address] [place] Nucleated RBC (Bld) [#/Vol] 10*3/uL Normal <0.01 [facility] Comment on above: Order Comment: Speci men Type: BLOOD SPECIMENOrdering Facility: [facility] Address: [address] [place] [address] Performed By: #### 5 7021-8 ####[facility] LABORATORYCLIA [id number] [address] [place] Nucleated RBC/100 WBC (Bld) [Ratio] 0.0 /100 WBC Normal [facility] Comment on above: Order Comment: Speci men Type: BLOOD SPECIMENOrdering Facility: [facility] Address: [address] [place] [address] Performed By: #### 5 7021-8 ####[facility] LABORATORYCLIA [id number] [address] [place] Platelet mean volume (Bld) [Entitic vol] 9.9 fL Normal 9.0-12.7 [facility] Comment on above: Order Comment: Speci men Type: BLOOD SPECIMENOrdering Facility: [facility] Address: [address] [place] [address] Performed By: #### 5 7021-8 ####[facility] LABORATORYCLIA [id number] [address] [place] Platelets (Bld) [#/Vol] 203 10*3/uL Normal 150-400 [facility] Comment on above: Order Comment: Speci men Type: BLOOD SPECIMENOrdering Facility: [facility] Address: [address] [place] [address] Performed By: #### 5 7021-8 ####[facility] LABORATORYCLIA [id number] [address] [place] RBC (Bld) [#/Vol] 2.91 10*6/uL Low 4.20-6.00 [facility] Comment on above: Order Comment: Speci men Type: BLOOD SPECIMENOrdering Facility: [facility] Address: [address] [place] [address] Performed By: #### 5 7021-8 ####[facility] LABORATORYCLIA [id number] [address] STATES OF [facility] WBC (Bld) [#/Vol] 8.31 10*3/uL Normal 3.70-11.00 [facility] Comment on above: Order Comment: Speci men Type: BLOOD SPECIMENOrdering Facility: [facility] Address: [address] [place] [address] Performed By: #### 5 7021-8 ####[facility] LABORATORYCLIA [id number] [address] aPTT PPPon 08-13-2021 aPTT Coag (PPP) [Time] 69.7 s High 23.0-32.4 [facility] Comment on above: Order Comment: Speci men Type: BLOOD SPECIMENOrdering Facility: [facility] Address: [address] [place] [address] Performed By: #### 1 4979-9 ####[facility] LABORATORYCLIA [id number] [address] aPTT Coag (PPP) [Time] 70.6 s High 23.0-32.4 [facility] Comment on above: Order Comment: Speci men Type: BLOOD SPECIMENOrdering Facility: [facility] Address: [address] [place] [address] Performed By: #### 1 4979-9 ####[facility] LABORATORYCLIA [id number] [address] [place] ALLIED HEALTHon 08-12-2021 ALLIED HEALTH Normal [facility] ALLIED HEALTH Normal [facility] Basic metabolic 2000 panelon 08-12-2021 Anion gap [Moles/Vol] 7 mmol/L Low 9-18 [facility] Comment on above: Order Comment: Speci men Type: BLOOD SPECIMENOrdering Facility: [facility] Address: [address] [place], [place] [address] Performed By: #### 2 4321-2, , 2776-05 ####[facility] LABORATORYCLIA [id number] [place] [address] [place] Calcium [Mass/Vol] 8.8 mg/dL Normal 8.5-10.2 [facility] Comment on above: Order Comment: Speci men Type: BLOOD SPECIMENOrdering Facility: [facility] Address: [address] [place] [address] Performed By: #### 2 4321-2, , 2776-05 ####[facility] LABORATORYCLIA [id number] [place] [address] [place] Chloride [Moles/Vol] 96 mmol/L Low 97-105 [facility] Comment on above: Order Comment: Speci men Type: BLOOD SPECIMENOrdering Facility: [facility] Address: [address] [place] [address] Performed By: #### 2 4321-2, , 2776-05 ####[facility] LABORATORYCLIA [id number] [place] [address] [place] CO2 [Moles/Vol] 32 mmol/L High 22-30 [facility] Comment on above: Order Comment: Speci men Type: BLOOD SPECIMENOrdering Facility: [facility] Address: [address] Performed By: #### 2 4321-2, , 2776-05 ####[facility] LABORATORYCLIA [id number] [place] [address] [place] Creatinine [Mass/Vol] 0.52 mg/dL Low 0.73-1.22 [facility] Comment on above: Order Comment: Speci men Type: BLOOD SPECIMENOrdering Facility: [facility] Address: [address] [place] [address] Performed By: #### 2 4321-2, 2776-05 ####[facility]LEIA [id number] [address] [place] ESTIMATED GLOMERULAR FILTRATION RATE 109 mL/min/1.73m??? Normal >=60 [facility] Comment on above: Order Comment: Shira feldman Type: BLOOD SPECIMENOrdering Facility: [facility] Address: [address] [place] [address] Result Comment: Luzmaria mated Glomerular Filtration Rate [...] #### 2 4321-2, , 2776-05 ####[facility] CRAWFORDSVILLEIA [id number] [place] [address] [place] Glucose [Mass/Vol] 119 mg/dL High 74-99 [facility] Comment on above: Order Comment: Shira francia Type: BLOOD SPECIMENOrdering Facility: [facility] Address: [address] [place] [address] Result Comment: The [place] [employer] (ADA) provides guidance for cutoff [...] Standards of Medical Care in Diabetes 2016, [place] [employer]. Diabetes Care. 2016.39(Suppl 1). Performed By: #### 2 4321-2, , 2776-05 ####[facility] CRAWFORDSVILLEIA [id number] [place] [id number] [place] Potassium [Moles/Vol] 3.7 mmol/L Normal 3.7-5.1 [facility] Comment on above: Order Comment: Speci men Type: BLOOD SPECIMENOrdering Facility: [facility] Address: [address] [place] [address] Performed By: #### 2 4321-2, 92020-7, 2776- ####[facility] LABORATORYCLIA [id number] [address] STATES OF [facility] Sodium [Moles/Vol] 135 mmol/L Low 136-144 [facility] Comment on above: Order Comment: Speci men Type: BLOOD SPECIMENOrdering Facility: [facility] Address: [address] [place] [address] Performed By: #### 2 4321-2, , 2776-05 ####[facility] LABORATORYCLIA [id number] [address] STATES [facility] Urea nitrogen [Mass/Vol] 20 mg/dL Normal 9-24 [facility] Comment on above: Order Comment: Speci men Type: BLOOD SPECIMENOrdering Facility: [facility] Address: [address] [place] [address] Performed By: #### 2 4321-2, , 2776-05 ####[facility] LABORATORYCLIA [id number] [address] [place] CASE MANAGEMon 08-12-2021 CASE MANAGEM Normal [facility] CBC W Auto Differential pane l (Bld)on 08-12-2021 Basophils (Bld) [#/Vol] 0.04 10*3/uL Normal <0.11 [facility] Comment on above: Order Comment: Speci men Type: BLOOD SPECIMENOrdering Facility: [facility] Address: [address] [place] [address] Performed By: #### 5 7021-8 ####[facility] LABORATORYCLIA [id number] [address] [place] Basophils/100 WBC (Bld) 0.5 % Normal [facility] Comment on above: Order Comment: Speci men Type: BLOOD SPECIMENOrdering Facility: [facility] Address: [address] [place] [address] Performed By: #### 5 7021-8 ####[facility] LABORATORYCLIA [id number] [address] Differential cell count method Nom (Bld) Auto Normal [facility] Comment on above: Order Comment: Speci men Type: BLOOD SPECIMENOrdering Facility: [facility] Address: [address] [place] [address] Performed By: #### 5 7021-8 ####[facility] LABORATORYCLIA [id number] [address] Eosinophils (Bld) [#/Vol] 0.19 10*3/uL Normal <0.46 [facility] Comment on above: Order Comment: Speci men Type: BLOOD SPECIMENOrdering Facility: [facility] Address: [address] [place] [address] Performed By: #### 5 7021-8 ####[facility] LABORATORYCLIA [id number] [address] Eosinophils/100 WBC (Bld) 2.3 % Normal [facility] Comment on above: Order Comment: Speci men Type: BLOOD SPECIMENOrdering Facility: [facility] Address: [address] [place] [address] Performed By: #### 5 7021-8 ####[facility] LABORATORYCLIA [id number] [address] Erythrocyte distribution width (RBC) [Ratio] 17.1 % High 11.5-15.0 [facility] Comment on above: Order Comment: Speci men Type: BLOOD SPECIMENOrdering Facility: [facility] Address: [address] [place] [address] Performed By: #### 5 7021-8 ####[facility] LABORATORYCLIA [id number] [address] Hematocrit (Bld) [Volume fraction] 25.3 % Low 39.0-51.0 [facility] Comment on above: Order Comment: Speci men Type: BLOOD SPECIMENOrdering Facility: [facility] Address: [address] [place] [address] Performed By: #### 5 7021-8 ####[facility] LABORATORYCLIA [id number] [address] STATES OF [facility] Hemoglobin (Bld) [Mass/Vol] 7.9 g/dL Low 13.0-17.0 [facility] Comment on above: Order Comment: Speci men Type: BLOOD SPECIMENOrdering Facility: [facility] Address: [address] [place] [address] Performed By: #### 5 7021-8 ####[facility] LABORATORYCLIA [id number] [address] IMMATURE GRAN % 0.5 % Normal [facility] Comment on above: Order Comment: Speci men Type: BLOOD SPECIMENOrdering Facility: [facility] Address: [address] [place] [address] Performed By: #### 5 7021-8 ####[facility] LABORATORYCLIA [id number] [address] IMMATURE GRAN ABS 0.04 k/uL Normal <0.10 [facility] Comment on above: Order Comment: Speci men Type: BLOOD SPECIMENOrdering Facility: [facility] Address: [address] [place] [address] Performed By: #### 5 7021-8 ####[facility] LABORATORYCLIA [id number] [address] [place] Lymphocytes (Bld) [#/Vol] 1.69 10*3/uL Normal 1.00-4.00 [facility] Comment on above: Order Comment: Speci men Type: BLOOD SPECIMENOrdering Facility: [facility] Address: [address] [place] [address] Performed By: #### 5 7021-8 ####[facility] LABORATORYCLIA [id number] [address] [address] Lymphocytes/100 WBC (Bld) 20.1 % Normal [facility] Comment on above: Order Comment: Speci men Type: BLOOD SPECIMENOrdering Facility: [facility] Address: [address] [place] [address] Performed By: #### 5 7021-8 ####[facility] LABORATORYCLIA [id number] [address] MCH (RBC) [Entitic mass] 28.5 pg Normal 26.0-34.0 [facility] Comment on above: Order Comment: Speci men Type: BLOOD SPECIMENOrdering Facility: [facility] Address: [address] [place] [address] Performed By: #### 5 7021-8 ####[facility] LABORATORYCLIA [id number] [address] MCHC (RBC) [Mass/Vol] 31.2 g/dL Normal 30.5-36.0 [facility] Comment on above: Order Comment: Speci men Type: BLOOD SPECIMENOrdering Facility: [facility] Address: [address] [place] [address] Performed By: #### 5 7021-8 ####[facility] LABORATORYCLIA [id number] [address] MCV (RBC) [Entitic vol] 91.3 fL Normal 80.0-100.0 [facility] Comment on above: Order Comment: Speci men Type: BLOOD SPECIMENOrdering Facility: [facility] Address: [address] [place] [address] Performed By: #### 5 7021-8 ####[facility] LABORATORYCLIA [id number] [address] Monocytes (Bld) [#/Vol] 0.53 10*3/uL Normal <0.87 [facility] Comment on above: Order Comment: Speci men Type: BLOOD SPECIMENOrdering Facility: [facility] Address: [address] [place] [address] Performed By: #### 5 7021-8 ####[facility]ORATORYCLIA [id number] [address] [place] Monocytes/100 WBC (Bld) 6.3 % Normal [facility] Comment on above: Order Comment: Speci men Type: BLOOD SPECIMENOrdering Facility: [facility] Address: [address] [place] [address] Performed By: #### 5 7021-8 ####[facility] LABORATORYCLIA [id number] [address] [place] Neutrophils (Bld) [#/Vol] 5.90 10*3/uL Normal 1.45-7.50 [facility] Comment on above: Order Comment: Speci men Type: BLOOD SPECIMENOrdering Facility: [facility] Address: [address] [place] [address] Performed By: #### 5 7021-8 ####[facility] LABORATORYCLIA [id number] [address] [place] Neutrophils/100 WBC (Bld) 70.3 % Normal [facility] Comment on above: Order Comment: Speci men Type: BLOOD SPECIMENOrdering Facility: [facility] Address: [address] [place] [address] Performed By: #### 5 7021-8 ####[facility]ORATORYCLIA [id number] [place] [address] [place] Nucleated RBC (Bld) [#/Vol] 10*3/uL Normal <0.01 [facility] Comment on above: Order Comment: Speci men Type: BLOOD SPECIMENOrdering Facility: [facility] Address: [address] [place] [address] Performed By: #### 5 7021-8 ####[facility] LABORATORYCLIA [id number] [address] [place] Nucleated RBC/100 WBC (Bld) [Ratio] 0.0 /100 WBC Normal [facility] Comment on above: Order Comment: Speci men Type: BLOOD SPECIMENOrdering Facility: [facility] Address: [address] [place] [address] Performed By: #### 5 7021-8 ####[facility] LABORATORYCLIA [id number] [place] [address] [place] Platelet mean volume (Bld) [Entitic vol] 9.8 fL Normal 9.0-12.7 [facility] Comment on above: Order Comment: Speci men Type: BLOOD SPECIMENOrdering Facility: [facility] Address: [address] [place] [address] Performed By: #### 5 7021-8 ####[facility] LABORATORYCLIA [id number] [place] [address] [place] Platelets (Bld) [#/Vol] 164 10*3/uL Normal 150-400 [facility] Comment on above: Order Comment: Speci men Type: BLOOD SPECIMENOrdering Facility: [facility] Address: [address] [place] [address] Performed By: #### 5 7021-8 ####[facility] LABORATORYCLIA [id number] [place] [address] [place] RBC (Bld) [#/Vol] 2.77 10*6/uL Low 4.20-6.00 [facility] Comment on above: Order Comment: Speci men Type: BLOOD SPECIMENOrdering Facility: [facility] Address: [address] [place], [place] [address] Performed By: #### 5 7021-8 ####[facility] LABORATORYCLIA [id number] [place] [address] [place] WBC (Bld) [#/Vol] 8.39 10*3/uL Normal 3.70-11.00 [facility] Comment on above: Order Comment: Speci men Type: BLOOD SPECIMENOrdering Facility: [facility] Address: [address] [place] [address] Performed By: #### 5 7021-8 ####[facility] LABORATORYCLIA [id number] [address] BRAIN WO IVCONon 08-13-19 CT BRAIN WO IVCON Normal [facility] CT BRAIN WO IVCON Normal [facility] Magnesium SerPl-mCncon 08-12 Magnesium [Mass/Vol] 2.0 mg/dL Normal 1.7-2.3 [facility] Comment on above: Order Comment: Speci men Type: BLOOD SPECIMENOrdering Facility: [facility] Address: [address] [place] [address] Performed By: #### 2 4321-2, , 2776-05 ####[facility] LABORATORYCLIA [id number] [address] Phosphate SerPl-mCncon 08-12 Phosphate [Mass/Vol] 2.9 mg/dL Normal 2.7-4.8 [facility] Comment on above: Order Comment: Speci men Type: BLOOD SPECIMENOrdering Facility: [facility] Address: [address] [place] [address] Performed By: #### 2 4321-2, , 2776-05 ####[facility] LABORATORYCLIA [id number] [address] [place] THERAPY NTon 08-12-2021 THERAPY NT Normal [facility] THERAPY NT Normal [facility] aPTT PPPon 08-12-2021 aPTT Coag (PPP) [Time] 94.2 s High 23.0-32.4 [facility] Comment on above: Order Comment: Speci men Type: BLOOD SPECIMENOrdering Facility: [facility] Address: [address] [place] [address] Performed By: #### 1 4979-9 ####[facility] LABORATORYCLIA [id number] [address] [place] aPTT Coag (PPP) [Time] 84.4 s High 23.0-32.4 [facility] Comment on above: Order Comment: Speci men Type: BLOOD SPECIMENOrdering Facility: [facility] Address: [address] [place] [address] Performed By: #### 1 4979-9 ####[facility] LABORATORYCLIA [id number] [place] [address] [place] aPTT Coag (PPP) [Time] 71.3 s High 23.0-32.4 [facility] Comment on above: Order Comment: Speci men Type: BLOOD SPECIMENOrdering Facility: [facility] Address: [address] [place] [address] Performed By: #### 1 4979-9 ####[facility] LABORATORYCLIA [id number] [address] [place] ALLIED HEALTHon 08-11-2021 ALLIED HEALTH Normal [facility] CBC W Auto Differential pane l (Bld)on 08-11-2021 Basophils (Bld) [#/Vol] 10*3/uL Normal <0.11 [facility] Comment on above: Order Comment: Speci men Type: BLOOD SPECIMENOrdering Facility: [facility] Address: [address] [place] [address] Performed By: #### 5 7021-8 ####[facility] LABORATORYCLIA [id number] [address] STATES [facility] Basophils/100 WBC (Bld) 0.2 % Normal [facility] Comment on above: Order Comment: Speci men Type: BLOOD SPECIMENOrdering Facility: [facility] Address: [address] [place] [address] Performed By: #### 5 7021-8 ####[facility] LABORATORYCLIA [id number] [address] STATES OF [facility] Differential cell count method Nom (Bld) Auto Normal [facility] Comment on above: Order Comment: Speci men Type: BLOOD SPECIMENOrdering Facility: [facility] Address: [address] [place] [address] Performed By: #### 5 7021-8 ####[facility]ORATORYCLIA [id number] [address] [place] Eosinophils (Bld) [#/Vol] 0.16 10*3/uL Normal <0.46 [facility] Comment on above: Order Comment: Speci men Type: BLOOD SPECIMENOrdering Facility: [facility] Address: [address] [place] [address] Performed By: #### 5 7021-8 ####[facility]ORATORYCLIA [id number] [address] Eosinophils/100 WBC (Bld) 1.8 % Normal [facility] Comment on above: Order Comment: Speci men Type: BLOOD SPECIMENOrdering Facility: [facility] Address: [address] [place] [address] Performed By: #### 5 7021-8 ####[facility]ORATORYCLIA [id number] [address] Erythrocyte distribution width (RBC) [Ratio] 17.3 % High 11.5-15.0 [facility] Comment on above: Order Comment: Speci men Type: BLOOD SPECIMENOrdering Facility: [facility] Address: [address] [place] [address] Performed By: #### 5 7021-8 ####[facility] LABORATORYCLIA [id number] [address] Hematocrit (Bld) [Volume fraction] 26.6 % Low 39.0-51.0 [facility] Comment on above: Order Comment: Speci men Type: BLOOD SPECIMENOrdering Facility: [facility] Address: [address] [place] [address] Performed By: #### 5 7021-8 ####[facility] LABORATORYCLIA [id number] [address] [place] Hemoglobin (Bld) [Mass/Vol] 8.2 g/dL Low 13.0-17.0 [facility] Comment on above: Order Comment: Speci men Type: BLOOD SPECIMENOrdering Facility: [facility] Address: [address] [place] [address] Performed By: #### 5 7021-8 ####[facility] LABORATORYCLIA [id number] [address] IMMATURE GRAN % 0.6 % Normal [facility] Comment on above: Order Comment: Speci men Type: BLOOD SPECIMENOrdering Facility: [facility] Address: [address] [place] [address] Performed By: #### 5 7021-8 ####[facility]ORATORYCLIA [id number] [address] IMMATURE GRAN ABS 0.05 k/uL Normal <0.10 [facility] Comment on above: Order Comment: Speci men Type: BLOOD SPECIMENOrdering Facility: [facility] Address: [address] [place] [address] Performed By: #### 5 7021-8 ####[facility] LABORATORYCLIA [id number] [address] Lymphocytes (Bld) [#/Vol] 1.40 10*3/uL Normal 1.00-4.00 [facility] Comment on above: Order Comment: Speci men Type: BLOOD SPECIMENOrdering Facility: [facility] Address: [address] [place] [address] Performed By: #### 5 7021-8 ####[facility] LABORATORYCLIA [id number] [address] Lymphocytes/100 WBC (Bld) 15.8 % Normal [facility] Comment on above: Order Comment: Speci men Type: BLOOD SPECIMENOrdering Facility: [facility] Address: [address] [place] [address] Performed By: #### 5 7021-8 ####[facility] LABORATORYCLIA [id number] [address] MCH (RBC) [Entitic mass] 28.4 pg Normal 26.0-34.0 [facility] Comment on above: Order Comment: Speci men Type: BLOOD SPECIMENOrdering Facility: [facility] Address: [address] [place] [address] Performed By: #### 5 7021-8 ####[facility]ORATORYCLIA [id number] [address] STATES [facility] MCHC (RBC) [Mass/Vol] 30.8 g/dL Normal 30.5-36.0 [facility] Comment on above: Order Comment: Speci men Type: BLOOD SPECIMENOrdering Facility: [facility] Address: [address] [place] [address] Performed By: #### 5 7021-8 ####[facility] LABORATORYCLIA [id number] [address] STATES OF [facility] MCV (RBC) [Entitic vol] 92.0 fL Normal 80.0-100.0 [facility] Comment on above: Order Comment: Speci men Type: BLOOD SPECIMENOrdering Facility: [facility] Address: [address] [place] [address] Performed By: #### 5 7021-8 ####[facility]ORATORYCLIA [id number] [address] Monocytes (Bld) [#/Vol] 0.61 10*3/uL Normal <0.87 [facility] Comment on above: Order Comment: Speci men Type: BLOOD SPECIMENOrdering Facility: [facility] Address: [address] [place] [address] Performed By: #### 5 7021-8 ####[facility]ORATORYCLIA [id number] [address] Monocytes/100 WBC (Bld) 6.9 % Normal [facility] Comment on above: Order Comment: Speci men Type: BLOOD SPECIMENOrdering Facility: [facility] Address: [address] [place] [address] Performed By: #### 5 7021-8 ####[facility] LABORATORYCLIA [id number] [place] [address] [place] Neutrophils (Bld) [#/Vol] 6.62 10*3/uL Normal 1.45-7.50 [facility] Comment on above: Order Comment: Speci men Type: BLOOD SPECIMENOrdering Facility: [facility] Address: [address] [place] [address] Performed By: #### 5 7021-8 ####[facility] LABORATORYCLIA [id number] [address] [place] Neutrophils/100 WBC (Bld) 74.7 % Normal [facility] Comment on above: Order Comment: Speci men Type: BLOOD SPECIMENOrdering Facility: [facility] Address: [address] [place] [address] Performed By: #### 5 7021-8 ####[facility]ORATORYCLIA [id number] [address] [place] Nucleated RBC (Bld) [#/Vol] 10*3/uL Normal <0.01 [facility] Comment on above: Order Comment: Speci men Type: BLOOD SPECIMENOrdering Facility: [facility] Address: [address] [place] [address] Performed By: #### 5 7021-8 ####[facility] LABORATORYCLIA [id number] [address] [place] Nucleated RBC/100 WBC (Bld) [Ratio] 0.0 /100 WBC Normal [facility] Comment on above: Order Comment: Speci men Type: BLOOD SPECIMENOrdering Facility: [facility] Address: [address] [place] [address] Performed By: #### 5 7021-8 ####[facility] LABORATORYCLIA [id number] [address] [place] Platelet mean volume (Bld) [Entitic vol] 9.8 fL Normal 9.0-12.7 [facility] Comment on above: Order Comment: Speci men Type: BLOOD SPECIMENOrdering Facility: [facility] Address: [address] [place] [address] Performed By: #### 5 7021-8 ####[facility]ORATORYCLIA [id number] [address] Platelets (Bld) [#/Vol] 157 10*3/uL Normal 150-400 [facility] Comment on above: Order Comment: Speci men Type: BLOOD SPECIMENOrdering Facility: [facility] Address: [address] [place] [address] Performed By: #### 5 7021-8 ####[facility]ORATORYCLIA [id number] [address] RBC (Bld) [#/Vol] 2.89 10*6/uL Low 4.20-6.00 [facility] Comment on above: Order Comment: Speci men Type: BLOOD SPECIMENOrdering Facility: [facility] Address: [address] [place] [address] Performed By: #### 5 7021-8 ####[facility]ORATORYCLIA [id number] [address] WBC (Bld) [#/Vol] 8.86 10*3/uL Normal 3.70-11.00 [facility] Comment on above: Order Comment: Speci men Type: BLOOD SPECIMENOrdering Facility: [facility] Address: [address] [place] [address] Performed By: #### 5 7021-8 ####[facility]ORATORYCLIA [id number] [address] CBC panel Auto (Bld)on 08-11 Erythrocyte distribution width (RBC) [Ratio] 17.2 % High 11.5-15.0 [facility] Comment on above: Order Comment: Speci men Type: BLOOD SPECIMENOrdering Facility: [facility] Address: [address] [place] [address] Performed By: #### 5 8410-2 ####[facility]ORATORYCLIA [id number] [address] Hematocrit (Bld) [Volume fraction] 27.0 % Low 39.0-51.0 [facility] Comment on above: Order Comment: Speci men Type: BLOOD SPECIMENOrdering Facility: [facility] Address: [address] [place] [address] Performed By: #### 5 8410-2 ####[facility]ORATORYCLIA [id number] [address] Hemoglobin (Bld) [Mass/Vol] 8.3 g/dL Low 13.0-17.0 [facility] Comment on above: Order Comment: Speci men Type: BLOOD SPECIMENOrdering Facility: [facility] Address: [address] [place] [address] Performed By: #### 5 8410-2 ####[facility]ORATORYCLIA [id number] [address] MCH (RBC) [Entitic mass] 28.7 pg Normal 26.0-34.0 [facility] Comment on above: Order Comment: Speci men Type: BLOOD SPECIMENOrdering Facility: [facility] Address: [address] [place] [address] Performed By: #### 5 8410-2 ####[facility]ORATORYCLIA [id number] [address] [place] MCHC (RBC) [Mass/Vol] 30.7 g/dL Normal 30.5-36.0 [facility] Comment on above: Order Comment: Speci men Type: BLOOD SPECIMENOrdering Facility: [facility] Address: [address] [place] [address] Performed By: #### 5 8410-2 ####[facility]ORATORYCLIA [id number] [address] MCV (RBC) [Entitic vol] 93.4 fL Normal 80.0-100.0 [facility] Comment on above: Order Comment: Speci men Type: BLOOD SPECIMENOrdering Facility: [facility] Address: [address] Performed By: #### 5 8410-2 ####[facility]ORATORYCLIA [id number] [address] Nucleated RBC (Bld) [#/Vol] 10*3/uL Normal <0.01 [facility] Comment on above: Order Comment: Speci men Type: BLOOD SPECIMENOrdering Facility: [facility] Address: [address] [place] [address] Performed By: #### 5 8410-2 ####[facility]ORATORYCLIA [id number] [address] Platelet mean volume (Bld) [Entitic vol] 9.8 fL Normal 9.0-12.7 [facility] Comment on above: Order Comment: Speci men Type: BLOOD SPECIMENOrdering Facility: [facility] Address: [address] [place] [address] Performed By: #### 5 8410-2 ####[facility]ORATORYCLIA [id number] [address] Platelets (Bld) [#/Vol] 169 10*3/uL Normal 150-400 [facility] Comment on above: Order Comment: Speci men Type: BLOOD SPECIMENOrdering Facility: [facility] Address: [address] [place] [address] Performed By: #### 5 8410-2 ####[facility] LABORATORYCLIA [id number] [address] [place] RBC (Bld) [#/Vol] 2.89 10*6/uL Low 4.20-6.00 [facility] Comment on above: Order Comment: Speci men Type: BLOOD SPECIMENOrdering Facility: [facility] Address: [address] [place] [address] Performed By: #### 5 8410-2 ####[facility] LABORATORYCLIA [id number] [address] [place] WBC (Bld) [#/Vol] 9.03 10*3/uL Normal 3.70-11.00 [facility] Comment on above: Order Comment: Speci francia Type: BLOOD SPECIMENOrdering Facility: [facility] Address: [address] [place] [address] Performed By: #### 5 8410-2 ####[facility] LABORATORYCLIA [id number] [address] OF [facility] CT BRAIN WO IVCONon 08-12-19 CT BRAIN WO IVCON Normal [facility] PT panel Coag (PPP)on 2021 INR Coag (PPP) [Relative time] 1.0 {INR} Normal 0.9-1.3 [facility] Comment on above: Order Comment: Shira feldman Type: BLOOD SPECIMENOrdering Facility: [facility] Address: [address] [place] [address] Result Comment: Yris min K Antagonist (VKA) Therapeutic Range: INR 2 to 3 (Target INR of 2.5)Note: For patients treated with VKA drugs, such as warfarin, the [employer] 2012 Guideline recommends [...] al. Chest 2012, 141:7S-47SNishimura RA, et al. JAC 2017, 70: 252-289 Performed By: #### 1 4979-9, 53842-6 ####[facility] LABORATORYCLIA [id number] [address] [place] PT Coag (PPP) [Time] 11.4 s Normal 9.7-13.0 [facility] Comment on above: Order Comment: Speci men Type: BLOOD SPECIMENOrdering Facility: [facility] Address: [address] [place] [address] Performed By: #### 1 4979-9, 33651-4 ####[facility] LABORATORYCLIA [id number] [place] [address] [place] THERAPY NTon 08-11-2021 THERAPY NT Normal [facility] US DVT LOWER BILon 2 US DVT LOWER RAINER Normal [facility] US DVT UPPER BILon 2 US DVT UPPER RAINER Normal [facility] aPTT PPPon 08-11-2021 aPTT Coag (PPP) [Time] 26.9 s Normal 23.0-32.4 [facility] Comment on above: Order Comment: Speci men Type: BLOOD SPECIMENOrdering Facility: [facility] Address: [address] [place] [address] Performed By: #### 1 4979-9, 16694-4 ####[facility] LABORATORYCLIA [id number] [place] [address] [place] Basic metabolic 2000 panelon 08-10-2021 Anion gap [Moles/Vol] 11 mmol/L Normal 9-18 [facility] Comment on above: Order Comment: Speci men Type: BLOOD SPECIMENOrdering Facility: [facility] Address: [address] [place] [address] Performed By: #### 2 4321-2 ####[facility] LABORATORYCLIA [id number] [place] [address] [place] Calcium [Mass/Vol] 8.7 mg/dL Normal 8.5-10.2 [facility] Comment on above: Order Comment: Speci men Type: BLOOD SPECIMENOrdering Facility: [facility] Address: [address] [place] [address] Performed By: #### 2 4321-2 ####[facility] LABORATORYCLIA [id number] [place] [address] [place] Chloride [Moles/Vol] 98 mmol/L Normal 97-105 [facility] Comment on above: Order Comment: Speci men Type: BLOOD SPECIMENOrdering Facility: [facility] Address: [address] [place] [address] Performed By: #### 2 4321-2 ####[facility] LABORATORYCLIA [id number] [address] CO2 [Moles/Vol] 28 mmol/L Normal 22-30 [facility] Comment on above: Order Comment: Speci men Type: BLOOD SPECIMENOrdering Facility: [facility] Address: [address] [place] [address] Performed By: #### 2 4321-2 ####[facility] [id number] [address] Creatinine [Mass/Vol] 0.59 mg/dL Low 0.73-1.22 [facility] Comment on above: Order Comment: Speci men Type: BLOOD SPECIMENOrdering Facility: [facility] Address: [address] [place] [address] Performed By: #### 2 4321-2 ####[facility] LABORATORYCLIA [id number] [address] ESTIMATED GLOMERULAR FILTRATION RATE 105 mL/min/1.73m??? Normal >=60 [facility] Comment on above: Order Comment: Speci men Type: BLOOD SPECIMENOrdering Facility: [facility] Address: [address] [place] [address] Result Comment: Luzmaria mated Glomerular Filtration Rate [...] actual GFR. Performed By: #### 2 4321-2 ####[facility] LABORATORYCLIA [id number] [place] [address] [place] Glucose [Mass/Vol] 118 mg/dL High 74-99 [facility] Comment on above: Order Comment: Speci men Type: BLOOD SPECIMENOrdering Facility: [facility] Address: [address] [place] [address] Result Comment: The [place] [employer] (ADA) provides guidance for cutoff [...] Standards of Medical Care in Diabetes 2016, [place] [employer]. Diabetes Care. 2016.39(Suppl 1). Performed By: #### 2 4321-2 ####[facility] LABORATORYCLIA [id number] [place] [address] [place] Potassium [Moles/Vol] 3.7 mmol/L Normal 3.7-5.1 [facility] Comment on above: Order Comment: Johni men Type: BLOOD SPECIMENOrdering Facility: [facility] Address: [address] [place] [address] Performed By: #### 2 4321-2 ####[facility] LABORATORYCLIA [id number] [place] [address] [place] Sodium [Moles/Vol] 137 mmol/L Normal 136-144 [facility] Comment on above: Order Comment: Speci men Type: BLOOD SPECIMENOrdering Facility: [facility] Address: [address] [place] [address] Performed By: #### 2 4321-2 ####[facility] LABORATORYCLIA [id number] [place] [address] [place] Urea nitrogen [Mass/Vol] 23 mg/dL Normal 9-24 [facility] Comment on above: Order Comment: Speci men Type: BLOOD SPECIMENOrdering Facility: [facility] Address: [address] [place] [address] Performed By: #### 2 4321-2 ####[facility] LABORATORYCLIA [id number] [address] [place] Anion gap [Moles/Vol] 17 mmol/L Normal 9-18 [facility] Comment on above: Order Comment: Speci men Type: BLOOD SPECIMENOrdering Facility: [facility] Address: [address] [place] [address] Performed By: #### 1 9123-9, 2777-1, 61741-0 ####[facility] LABORATORYCLIA [id number] [place] [address] [place] Calcium [Mass/Vol] 7.7 mg/dL Low 8.5-10.2 [facility] Comment on above: Order Comment: Speci men Type: BLOOD SPECIMENOrdering Facility: [facility] Address: [address] [place] [address] Performed By: #### 1 9123-9, 277-1, 97013-0 ####[facility] LABORATORYCLIA [id number] [place] [address] [place] Chloride [Moles/Vol] 86 mmol/L Low 97-105 [facility] Comment on above: Order Comment: Speci men Type: BLOOD SPECIMENOrdering Facility: [facility] Address: [address] [place] [address] Performed By: #### 1 9123-9, 2771, 96553-3 ####[facility] LABORATORYCLIA [id number] [place] [address] [place] CO2 [Moles/Vol] 24 mmol/L Normal 22-30 [facility] Comment on above: Order Comment: Speci men Type: BLOOD SPECIMENOrdering Facility: [facility] Address: [address] [place] [address] Performed By: #### 1 9123-9, 277-1, 61209-4 ####[facility]RAWFORDSVILLEIA [id number] [address] [place] Creatinine [Mass/Vol] 0.53 mg/dL Low 0.73-1.22 [facility] Comment on above: Order Comment: Shira feldman Type: BLOOD SPECIMENOrdering Facility: [facility] Address: [address] [place] [address] Performed By: #### 1 9123-9, 2777-, 02894-0 ####[facility] CRAWFORDSVILLEIA [id number] [address] [place] ESTIMATED GLOMERULAR FILTRATION RATE 108 mL/min/1.73m??? Normal >=60 [facility] Comment on above: Order Comment: Shira feldman Type: BLOOD SPECIMENOrdering Facility: [facility] Address: [address] [place] [address] Result Comment: Luzmaria mated Glomerular Filtration Rate [...] GFR. Performed By: #### 1 9123-9, 2777-, 28725-8 ####[facility]RAWFORDSVILLEIA [id number] [address] [place] Glucose [Mass/Vol] 455 mg/dL High 74-99 [facility] Comment on above: Order Comment: Shira francia Type: BLOOD SPECIMENOrdering Facility: [facility] Address: [address] [place] [address] Result Comment: The [place] [employer] (ADA) provides guidance for cutoff [...] Standards of Medical Care in Diabetes 2016, [place] [employer]. Diabetes Care. 2016.39(Suppl 1). Performed By: #### 1 9123-9, 2777-1, 92543-8 ####[facility] LABORATORYCLIA [id number] [place] [address] [place] Potassium [Moles/Vol] 3.4 mmol/L Low 3.7-5.1 [facility] Comment on above: Order Comment: Speci men Type: BLOOD SPECIMENOrdering Facility: [facility] Address: [address] [place] [address] Performed By: #### 1 9123-9, 2777, 48687-5 ####[facility]NACLIA [id number] [address] STATES OF [facility] Sodium [Moles/Vol] 127 mmol/L Low 136-144 [facility] Comment on above: Order Comment: Speci francia Type: BLOOD SPECIMENOrdering Facility: [facility] Address: [address] [place] [address] Performed By: #### 1 9123-9, 27711-04, 70909-9 ####[facility] LABORATORYCLIA [id number] [address] [place] Urea nitrogen [Mass/Vol] 21 mg/dL Normal 9-24 [facility] Comment on above: Order Comment: Speci men Type: BLOOD SPECIMENOrdering Facility: [facility] Address: [address] [address] Performed By: #### 1 9123-9, 27711-04, 01135-5 ####[facility] LABORATORYCLIA [id number] [address] [place] CASE MANAGEMon 08-10-2021 CASE MANAGEM Normal [facility] CBC W Auto Differential pane l (Bld)on 08-10-2021 Basophils (Bld) [#/Vol] 0.04 10*3/uL Normal <0.11 [facility] Comment on above: Order Comment: Speci men Type: BLOOD SPECIMENOrdering Facility: [facility] Address: [address] [place] [address] Performed By: #### 5 7021-8 ####[facility]ORATORYCLIA [id number] [address] [place] Basophils/100 WBC (Bld) 0.4 % Normal [facility] Comment on above: Order Comment: Speci men Type: BLOOD SPECIMENOrdering Facility: [facility] Address: [address] [place] [address] Performed By: #### 5 7021-8 ####[facility]ORATORYCLIA [id number] [address] [place] Differential cell count method Nom (Bld) Auto Normal [facility] Comment on above: Order Comment: Speci men Type: BLOOD SPECIMENOrdering Facility: [facility] Address: [address] [place] [address] Performed By: #### 5 7021-8 ####[facility]ORATORYCLIA [id number] [place] [address] [place] Eosinophils (Bld) [#/Vol] 0.11 10*3/uL Normal <0.46 [facility] Comment on above: Order Comment: Speci men Type: BLOOD SPECIMENOrdering Facility: [facility] Address: [address] [place] [address] Performed By: #### 5 7021-8 ####[facility]ORATORYCLIA [id number] [address] [place] Eosinophils/100 WBC (Bld) 1.1 % Normal [facility] Comment on above: Order Comment: Speci men Type: BLOOD SPECIMENOrdering Facility: [facility] Address: [address] [place] [address] Performed By: #### 5 7021-8 ####[facility]ORATORYCLIA [id number] [address] Erythrocyte distribution width (RBC) [Ratio] 17.2 % High 11.5-15.0 [facility] Comment on above: Order Comment: Speci men Type: BLOOD SPECIMENOrdering Facility: [facility] Address: [address] [place] [address] Performed By: #### 5 7021-8 ####[facility] LABORATORYCLIA [id number] [address] Hematocrit (Bld) [Volume fraction] 25.5 % Low 39.0-51.0 [facility] Comment on above: Order Comment: Speci men Type: BLOOD SPECIMENOrdering Facility: [facility] Address: [address] [place] [address] Performed By: #### 5 7021-8 ####[facility] LABORATORYCLIA [id number] [address] Hemoglobin (Bld) [Mass/Vol] 7.9 g/dL Low 13.0-17.0 [facility] Comment on above: Order Comment: Speci men Type: BLOOD SPECIMENOrdering Facility: [facility] Address: [address] [place] [address] Performed By: #### 5 7021-8 ####[facility] LABORATORYCLIA [id number] [address] IMMATURE GRAN % 0.4 % Normal [facility] Comment on above: Order Comment: Speci men Type: BLOOD SPECIMENOrdering Facility: [facility] Address: [address] [place] [address] Performed By: #### 5 7021-8 ####[facility] LABORATORYCLIA [id number] [address] IMMATURE GRAN ABS 0.04 k/uL Normal <0.10 [facility] Comment on above: Order Comment: Speci men Type: BLOOD SPECIMENOrdering Facility: [facility] Address: [address] [place] [address] Performed By: #### 5 7021-8 ####[facility] LABORATORYCLIA [id number] [address] OF [facility] Lymphocytes (Bld) [#/Vol] 1.66 10*3/uL Normal 1.00-4.00 [facility] Comment on above: Order Comment: Speci men Type: BLOOD SPECIMENOrdering Facility: [facility] Address: [address] [place] [address] Performed By: #### 5 7021-8 ####[facility] LABORATORYCLIA [id number] [address] Lymphocytes/100 WBC (Bld) 16.2 % Normal [facility] Comment on above: Order Comment: Speci men Type: BLOOD SPECIMENOrdering Facility: [facility] Address: [address] [place] [address] Performed By: #### 5 7021-8 ####[facility] LABORATORYCLIA [id number] [address] MCH (RBC) [Entitic mass] 28.5 pg Normal 26.0-34.0 [facility] Comment on above: Order Comment: Speci men Type: BLOOD SPECIMENOrdering Facility: [facility] Address: [address] [place] [address] Performed By: #### 5 7021-8 ####[facility] LABORATORYCLIA [id number] [address] STATES OF [facility] MCHC (RBC) [Mass/Vol] 31.0 g/dL Normal 30.5-36.0 [facility] Comment on above: Order Comment: Speci men Type: BLOOD SPECIMENOrdering Facility: [facility] Address: [address] [place] [address] Performed By: #### 5 7021-8 ####[facility] LABORATORYCLIA [id number] [address] STATES OF [facility] MCV (RBC) [Entitic vol] 92.1 fL Normal 80.0-100.0 [facility] Comment on above: Order Comment: Speci men Type: BLOOD SPECIMENOrdering Facility: [facility] Address: [address] [place] [address] Performed By: #### 5 7021-8 ####[facility]ORATORYCLIA [id number] [address] [place] Monocytes (Bld) [#/Vol] 0.51 10*3/uL Normal <0.87 [facility] Comment on above: Order Comment: Speci men Type: BLOOD SPECIMENOrdering Facility: [facility] Address: [address] [place] [address] Performed By: #### 5 7021-8 ####[facility]ORATORYCLIA [id number] [address] [place] Monocytes/100 WBC (Bld) 5.0 % Normal [facility] Comment on above: Order Comment: Speci men Type: BLOOD SPECIMENOrdering Facility: [facility] Address: [address] [place] [address] Performed By: #### 5 7021-8 ####[facility] LABORATORYCLIA [id number] [place] [address] [place] Neutrophils (Bld) [#/Vol] 7.91 10*3/uL High 1.45-7.50 [facility] Comment on above: Order Comment: Speci men Type: BLOOD SPECIMENOrdering Facility: [facility] Address: [address] [place] [address] Performed By: #### 5 7021-8 ####[facility]ORATORYCLIA [id number] [address] [place] Neutrophils/100 WBC (Bld) 76.9 % Normal [facility] Comment on above: Order Comment: Speci men Type: BLOOD SPECIMENOrdering Facility: [facility] Address: [address] [place] [address] Performed By: #### 5 7021-8 ####[facility] LABORATORYCLIA [id number] [place] [address] [place] Nucleated RBC (Bld) [#/Vol] 10*3/uL Normal <0.01 [facility] Comment on above: Order Comment: Speci men Type: BLOOD SPECIMENOrdering Facility: [facility] Address: [address] [place] [address] Performed By: #### 5 7021-8 ####[facility] LABORATORYCLIA [id number] [place] [address] [place] Nucleated RBC/100 WBC (Bld) [Ratio] 0.0 /100 WBC Normal [facility] Comment on above: Order Comment: Speci men Type: BLOOD SPECIMENOrdering Facility: [facility] Address: [address] [place] [address] Performed By: #### 5 7021-8 ####[facility] LABORATORYCLIA [id number] [place] [address] [place] Platelet mean volume (Bld) [Entitic vol] 10.3 fL Normal 9.0-12.7 [facility] Comment on above: Order Comment: Speci men Type: BLOOD SPECIMENOrdering Facility: [facility] Address: [address] [place] [address] Performed By: #### 5 7021-8 ####[facility] LABORATORYCLIA [id number] [address] [place] Platelets (Bld) [#/Vol] 152 10*3/uL Normal 150-400 [facility] Comment on above: Order Comment: Speci men Type: BLOOD SPECIMENOrdering Facility: [facility] Address: [address] Performed By: #### 5 7021-8 ####[facility] LABORATORYCLIA [id number] [place] [address] [place] RBC (Bld) [#/Vol] 2.77 10*6/uL Low 4.20-6.00 [facility] Comment on above: Order Comment: Speci men Type: BLOOD SPECIMENOrdering Facility: [facility] Address: [address] [place] [address] Performed By: #### 5 7021-8 ####[facility] LABORATORYCLIA [id number] [address] [place] WBC (Bld) [#/Vol] 10.27 10*3/uL Normal 3.70-11.00 [facility] Comment on above: Order Comment: Speci men Type: BLOOD SPECIMENOrdering Facility: [facility] Address: [facility] [place] [address] Performed By: #### 5 7021-8 ####[facility] LABORATORYCLIA [id number] [address] [place] Magnesium SerPl-mCncon 08-10 Magnesium [Mass/Vol] 1.8 mg/dL Normal 1.7-2.3 [facility] Comment on above: Order Comment: Speci men Type: BLOOD SPECIMENOrdering Facility: [facility] Address: [address] [place], [place] [address] [place] [address] Performed By: #### 1 9123-9, 2777-1, 47090-6 ####[facility] LABORATORYCLIA [id number] [address] [place] NURSING PROGon 08-10-2021 NURSING PROG Normal [facility] NURSING PROG Normal [facility] NUTRITIONon 08-10-2021 NUTRITION Normal [facility] Phosphate SerPl-mCncon 08-10 Phosphate [Mass/Vol] 3.7 mg/dL Normal 2.7-4.8 [facility] Comment on above: Order Comment: Speci men Type: BLOOD SPECIMENOrdering Facility: [facility] Address: [address] [place] [address] Performed By: #### 1 9123-9, 2777-1, 84840-6 ####[facility] LABORATORYCLIA [id number] [place] [address] [place] ALLIED HEALTHon 08-09-2021 ALLIED HEALTH Normal [facility] ANES POSTPROC EVALon 022 ANES POSTPROC EVAL Normal [facility] ANES PRE-OPon 08-09-2021 ANES PRE-OP Normal [facility] BRIEF OP NOTon 08-09-2021 BRIEF OP NOT Normal [facility] Basic metabolic 2000 panelon 08-09-2021 Anion gap [Moles/Vol] 8 mmol/L Low 9-18 [facility] Comment on above: Order Comment: Speci men Type: BLOOD SPECIMENOrdering Facility: [facility] Address: [address] [place] [address] Performed By: #### 2 4321-2, , 2776-05 ####[facility] LABORATORYCLIA [id number] [place] [address] [place] Calcium [Mass/Vol] 9.2 mg/dL Normal 8.5-10.2 [facility] Comment on above: Order Comment: Speci men Type: BLOOD SPECIMENOrdering Facility: [facility] Address: [address] [place] [address] Performed By: #### 2 4321-2, , 2776-05 ####[facility] LABORATORYCLIA [id number] [place] [address] [place] Chloride [Moles/Vol] 97 mmol/L Normal 97-105 [facility] Comment on above: Order Comment: Speci men Type: BLOOD SPECIMENOrdering Facility: [facility] Address: [address] [place] [address] Performed By: #### 2 4321-2, , 2776-05 ####[facility] LABORATORYCLIA [id number] [place] [address] [place] CO2 [Moles/Vol] 30 mmol/L Normal 22-30 [facility] Comment on above: Order Comment: Speci men Type: BLOOD SPECIMENOrdering Facility: [facility] Address: [address] [place] [address] Performed By: #### 2 4321-2, , 2776-05 ####[facility] LABORATORYCLIA [id number] [address] STATES OF [facility] Creatinine [Mass/Vol] 0.51 mg/dL Low 0.73-1.22 [facility] Comment on above: Order Comment: Shira feldman Type: BLOOD SPECIMENOrdering Facility: [facility] Address: [address] [place], [place] [address] Performed By: #### 2 4321-2, , 2776-05 ####[facility]NACLIA [id number] [address] ESTIMATED GLOMERULAR FILTRATION RATE 110 mL/min/1.73m??? Normal >=60 [facility] Comment on above: Order Comment: Shira feldman Type: BLOOD SPECIMENOrdering Facility: [facility] Address: [address] [place] [address] Result Comment: Luzmaria mated Glomerular Filtration Rate [...] #### 2 4321-2, , 2776-05 ####[facility] [id number] [address] [place] Glucose [Mass/Vol] 106 mg/dL High 74-99 [facility] Comment on above: Order Comment: Shira feldman Type: BLOOD SPECIMENOrdering Facility: [facility] Address: [address] [place] [address] Result Comment: The [place] [employer] (ADA) provides guidance for cutoff [...] Standards of Medical Care in Diabetes 2016, [place] [employer]. Diabetes Care. 2016.39(Suppl 1). Performed By: #### 2 4321-2, , 2776-05 ####[facility] LABORATORYCLIA [id number] [place] [address] [place] Potassium [Moles/Vol] 4.1 mmol/L Normal 3.7-5.1 [facility] Comment on above: Order Comment: Speci men Type: BLOOD SPECIMENOrdering Facility: [facility] Address: [address] [place] [address] Performed By: #### 2 4321-2, , 2776-05 ####[facility] LABORATORYCLIA [id number] [address] STATES OF [facility] Sodium [Moles/Vol] 135 mmol/L Low 136-144 [facility] Comment on above: Order Comment: Speci men Type: BLOOD SPECIMENOrdering Facility: [facility] Address: [address] [place] [address] Performed By: #### 2 4321-2, , 2776-05 ####[facility] LABORATORYCLIA [id number] [address] STATES [facility] Urea nitrogen [Mass/Vol] 26 mg/dL High 9-24 [facility] Comment on above: Order Comment: Speci men Type: BLOOD SPECIMENOrdering Facility: [facility] Address: [address] [place] [address] Performed By: #### 2 4321-2, , 2776-05 ####[facility] LABORATORYCLIA [id number] [place] [address] [place] CBC W Auto Differential pane l (Bld)on 08-09-2021 Basophils (Bld) [#/Vol] 0.06 10*3/uL Normal <0.11 [facility] Comment on above: Order Comment: Speci men Type: BLOOD SPECIMENOrdering Facility: [facility] Address: [address] [address] Performed By: #### 5 7021-8 ####[facility]ORATORYCLIA [id number] [address] Basophils/100 WBC (Bld) 0.5 % Normal [facility] Comment on above: Order Comment: Speci men Type: BLOOD SPECIMENOrdering Facility: [facility] Address: [address] [place] [address] Performed By: #### 5 7021-8 ####[facility] LABORATORYCLIA [id number] [address] Differential cell count method Nom (Bld) Auto Normal [facility] Comment on above: Order Comment: Speci men Type: BLOOD SPECIMENOrdering Facility: [facility] Address: [address] [place] [address] Performed By: #### 5 7021-8 ####[facility]ORATORYCLIA [id number] [address] [place] Eosinophils (Bld) [#/Vol] 0.42 10*3/uL Normal <0.46 [facility] Comment on above: Order Comment: Speci men Type: BLOOD SPECIMENOrdering Facility: [facility] Address: [address] [place] [address] Performed By: #### 5 7021-8 ####[facility]ATORYCLIA [id number] [address] Eosinophils/100 WBC (Bld) 3.8 % Normal [facility] Comment on above: Order Comment: Speci men Type: BLOOD SPECIMENOrdering Facility: [facility] Address: [address] [place] [address] Performed By: #### 5 7021-8 ####[facility]ORATORYCLIA [id number] [address] [place] Erythrocyte distribution width (RBC) [Ratio] 17.6 % High 11.5-15.0 [facility] Comment on above: Order Comment: Speci men Type: BLOOD SPECIMENOrdering Facility: [facility] Address: [address] [place] [address] Performed By: #### 5 7021-8 ####[facility] LABORATORYCLIA [id number] [address] Hematocrit (Bld) [Volume fraction] 29.3 % Low 39.0-51.0 [facility] Comment on above: Order Comment: Speci men Type: BLOOD SPECIMENOrdering Facility: [facility] Address: [address] [place] [address] Performed By: #### 5 7021-8 ####[facility] LABORATORYCLIA [id number] [address] Hemoglobin (Bld) [Mass/Vol] 9.0 g/dL Low 13.0-17.0 [facility] Comment on above: Order Comment: Speci men Type: BLOOD SPECIMENOrdering Facility: [facility] Address: [address] [place] [address] Performed By: #### 5 7021-8 ####[facility] LABORATORYCLIA [id number] [address] IMMATURE GRAN % 0.5 % Normal [facility] Comment on above: Order Comment: Speci men Type: BLOOD SPECIMENOrdering Facility: [facility] Address: [address] [place] [address] Performed By: #### 5 7021-8 ####[facility] LABORATORYCLIA [id number] [address] IMMATURE GRAN ABS 0.05 k/uL Normal <0.10 [facility] Comment on above: Order Comment: Speci men Type: BLOOD SPECIMENOrdering Facility: [facility] Address: [address] [place] [address] Performed By: #### 5 7021-8 ####[facility] LABORATORYCLIA [id number] [place] [address] [place] Lymphocytes (Bld) [#/Vol] 2.00 10*3/uL Normal 1.00-4.00 [facility] Comment on above: Order Comment: Speci men Type: BLOOD SPECIMENOrdering Facility: [facility] Address: [address] [place] [address] Performed By: #### 5 7021-8 ####[facility] LABORATORYCLIA [id number] [address] Lymphocytes/100 WBC (Bld) 18.1 % Normal [facility] Comment on above: Order Comment: Speci men Type: BLOOD SPECIMENOrdering Facility: [facility] Address: [address] [place] [address] Performed By: #### 5 7021-8 ####[facility] LABORATORYCLIA [id number] [address] [place] MCH (RBC) [Entitic mass] 28.1 pg Normal 26.0-34.0 [facility] Comment on above: Order Comment: Speci men Type: BLOOD SPECIMENOrdering Facility: [facility] Address: [address] [place] [address] Performed By: #### 5 7021-8 ####[facility] LABORATORYCLIA [id number] [address] STATES OF [facility] MCHC (RBC) [Mass/Vol] 30.7 g/dL Normal 30.5-36.0 [facility] Comment on above: Order Comment: Speci men Type: BLOOD SPECIMENOrdering Facility: [facility] Address: [address] [place] [address] Performed By: #### 5 7021-8 ####[facility] LABORATORYCLIA [id number] [address] MCV (RBC) [Entitic vol] 91.6 fL Normal 80.0-100.0 [facility] Comment on above: Order Comment: Speci men Type: BLOOD SPECIMENOrdering Facility: [facility] Address: [address] [place] [address] Performed By: #### 5 7021-8 ####[facility] LABORATORYCLIA [id number] [place] [address] [place] Monocytes (Bld) [#/Vol] 0.68 10*3/uL Normal <0.87 [facility] Comment on above: Order Comment: Speci men Type: BLOOD SPECIMENOrdering Facility: [facility] Address: [address] [place] [address] Performed By: #### 5 7021-8 ####[facility] LABORATORYCLIA [id number] [address] [place] Monocytes/100 WBC (Bld) 6.2 % Normal [facility] Comment on above: Order Comment: Speci men Type: BLOOD SPECIMENOrdering Facility: [facility] Address: [address] [place] [address] Performed By: #### 5 7021-8 ####[facility] LABORATORYCLIA [id number] [address] [place] Neutrophils (Bld) [#/Vol] 7.82 10*3/uL High 1.45-7.50 [facility] Comment on above: Order Comment: Speci men Type: BLOOD SPECIMENOrdering Facility: [facility] Address: [address] [place] [address] Performed By: #### 5 7021-8 ####[facility] LABORATORYCLIA [id number] [address] [place] Neutrophils/100 WBC (Bld) 70.9 % Normal [facility] Comment on above: Order Comment: Speci men Type: BLOOD SPECIMENOrdering Facility: [facility] Address: [address] [place] [address] Performed By: #### 5 7021-8 ####[facility] LABORATORYCLIA [id number] [place] [address] [place] Nucleated RBC (Bld) [#/Vol] 10*3/uL Normal <0.01 [facility] Comment on above: Order Comment: Speci men Type: BLOOD SPECIMENOrdering Facility: [facility] Address: [address] [place] [address] Performed By: #### 5 7021-8 ####[facility] LABORATORYCLIA [id number] [address] [place] Nucleated RBC/100 WBC (Bld) [Ratio] 0.0 /100 WBC Normal [facility] Comment on above: Order Comment: Speci men Type: BLOOD SPECIMENOrdering Facility: [facility] Address: [address] [place] [address] Performed By: #### 5 7021-8 ####[facility] LABORATORYCLIA [id number] [address] [place] Platelet mean volume (Bld) [Entitic vol] 10.1 fL Normal 9.0-12.7 [facility] Comment on above: Order Comment: Speci men Type: BLOOD SPECIMENOrdering Facility: [facility] Address: [address] [place] [address] Performed By: #### 5 7021-8 ####[facility] LABORATORYCLIA [id number] [address] [place] Platelets (Bld) [#/Vol] 160 10*3/uL Normal 150-400 [facility] Comment on above: Order Comment: Speci men Type: BLOOD SPECIMENOrdering Facility: [facility] Address: [address] [place] [address] Performed By: #### 5 7021-8 ####[facility] LABORATORYCLIA [id number] [place] [address] [place] RBC (Bld) [#/Vol] 3.20 10*6/uL Low 4.20-6.00 [facility] Comment on above: Order Comment: Speci men Type: BLOOD SPECIMENOrdering Facility: [facility] Address: [address] [place] [address] Performed By: #### 5 7021-8 ####[facility] LABORATORYCLIA [id number] [place] [address] [place] WBC (Bld) [#/Vol] 11.03 10*3/uL High 3.70-11.00 [facility] Comment on above: Order Comment: Shira feldman Type: BLOOD SPECIMENOrdering Facility: [facility] Address: [address] [place] [address] Performed By: #### 5 7021-8 ####[facility] LABORATORYCLIA [id number] [address] [place] CONSULT PROGon 08-09-2021 CONSULT PROG Normal [facility] CT BRAIN WO IVCONon 08-10-19 CT BRAIN WO IVCON Normal [facility] CT BRAIN WO IVCON Normal [facility] Magnesium SerPl-mCncon 08-09 Magnesium [Mass/Vol] 2.0 mg/dL Normal 1.7-2.3 [facility] Comment on above: Order Comment: Shira feldman Type: BLOOD SPECIMENOrdering Facility: [facility] Address: [address] [place] [address] Performed By: #### 2 4321-2, 23960-1, 2777-1 ####[facility] LABORATORYCLIA [id number] [address] [place] NURSING PROGon 08-09-2021 NURSING PROG Normal [facility] OPERATIVE NOon 08-09-2021 OPERATIVE NO Normal [facility] PT panel Coag (PPP)on 2021 INR Coag (PPP) [Relative time] 1.1 {INR} Normal 0.9-1.3 [facility] Comment on above: Order Comment: Shira feldman Type: BLOOD SPECIMENOrdering Facility: [facility] Address: [address] [place], [place] [address] Result Comment: Yris min K Antagonist (VKA) Therapeutic Range: INR 2 to 3 (Target INR of 2.5)Note: For patients treated with VKA drugs, such as warfarin, the [place] [employer] [employer] 2012 Guideline recommends [...] al. Chest 2012, 141:7S-47SNishimura RA, et al. [facility] 2017, 70: 252-289 Performed By: #### 3 4528-0, 26062-4 ####[facility] LABORATORYCLIA [id number] [place] [address] [place] PT Coag (PPP) [Time] 11.7 s Normal 9.7-13.0 [facility] Comment on above: Order Comment: Shira feldman Type: BLOOD SPECIMENOrdering Facility: [facility] Address: [address] [place] [address] Performed By: #### 3 4528-0, 35860-9 ####[facility] LABORATORYCLIA [id number] [place] [address] [place] Phosphate SerPl-mCncon 08-09 Phosphate [Mass/Vol] 4.0 mg/dL Normal 2.7-4.8 [facility] Comment on above: Order Comment: Shira feldman Type: BLOOD SPECIMENOrdering Facility: [facility] Address: [address] [place] [address] Performed By: #### 2 4321-2, 38431-4, 2777-1 ####[facility] LABORATORYCLIA [id number] [place] [address] [place] THERAPY NTon 08-09-2021 THERAPY NT [facility] THERAPY NT [facility] TYPE AND SCREENon 08-09-2021 ABO O [facility] Comment on above: Order Comment: Shira feldman Type: BLOOD SPECIMENOrdering Facility: [facility] Address: [address] [address] Performed By: #### T SCR ####[facility] BLOOD BANKCLIA [id number] [address] HISTORICAL AB SCR STATUS Negative Normal [facility] Comment on above: Order Comment: Speci men Type: BLOOD SPECIMENOrdering Facility: [facility] Address: [address] [place] [address] Performed By: #### T SCR ####[facility] BLOOD BANKCLIA [id number] [address] Rh Nom (Bld) Positive Normal [facility] Comment on above: Order Comment: Speci men Type: BLOOD SPECIMENOrdering Facility: [facility] Address: [address] [place] [address] Performed By: #### T SCR ####[facility] BLOOD BANKCLIA [id number] [address] TYPE AND SCREEN EXPIRATION 08/12/2021 23:59 Normal [facility] Comment on above: Order Comment: Speci men Type: BLOOD SPECIMENOrdering Facility: [facility] Address: [address] [place] [address] Performed By: #### T SCR ####[facility] BLOOD BANKCLIA [id number] [address] XR ABD 2V SUPINE W UPR/DECUB /CTLon 08-09-2021 XR ABD 2V SUPINE W UPR/DECUB/CTL Normal [facility] XR CHEST 1V FRONTALon 2021 XR CHEST 1V FRONTAL Normal [facility] XR NECK SOFT TISSUE 2V AP/LA Ton 08-09-2021 XR NECK SOFT TISSUE 2V AP/LAT Normal [facility] XR SKULL 2V AP/LATon 022 XR SKULL 2V AP/LAT Normal [facility] aPTT PPPon 08-09-2021 aPTT Coag (PPP) [Time] 26.8 s Normal 23.0-32.4 [facility] Comment on above: Order Comment: Speci men Type: BLOOD SPECIMENOrdering Facility: [facility] Address: [address] [place] [address] Performed By: #### 3 4528-0, 35866-5 ####[facility] LABORATORYCLIA [id number] [address] [place] CASE MANAGEMon 08-08-2021 CASE MANAGEM Normal [facility] CBC W Auto Differential pane l (Bld)on 08-08-2021 Basophils (Bld) [#/Vol] 0.05 10*3/uL Normal <0.11 [facility] Comment on above: Order Comment: Speci men Type: BLOOD SPECIMENOrdering Facility: [facility] Address: [address] [place] [address] Performed By: #### 5 7021-8 ####[facility] LABORATORYCLIA [id number] [address] STATES [facility] Basophils/100 WBC (Bld) 0.5 % Normal [facility] Comment on above: Order Comment: Speci men Type: BLOOD SPECIMENOrdering Facility: [facility] Address: [address] [place] [address] Performed By: #### 5 7021-8 ####[facility] LABORATORYCLIA [id number] [address] STATES OF [facility] Differential cell count method Nom (Bld) Auto Normal [facility] Comment on above: Order Comment: Speci men Type: BLOOD SPECIMENOrdering Facility: [facility] Address: [address] [place] [address] Performed By: #### 5 7021-8 ####[facility] LABORATORYCLIA [id number] [place] [address] [place] Eosinophils (Bld) [#/Vol] 0.17 10*3/uL Normal <0.46 [facility] Comment on above: Order Comment: Speci men Type: BLOOD SPECIMENOrdering Facility: [facility] Address: [address] [place] [address] Performed By: #### 5 7021-8 ####[facility] LABORATORYCLIA [id number] [address] [place] Eosinophils/100 WBC (Bld) 1.6 % Normal [facility] Comment on above: Order Comment: Speci men Type: BLOOD SPECIMENOrdering Facility: [facility] Address: [address] [place] [address] Performed By: #### 5 7021-8 ####[facility] LABORATORYCLIA [id number] [address] Erythrocyte distribution width (RBC) [Ratio] 17.8 % High 11.5-15.0 [facility] Comment on above: Order Comment: Speci men Type: BLOOD SPECIMENOrdering Facility: [facility] Address: [address] [place] [address] Performed By: #### 5 7021-8 ####[facility] LABORATORYCLIA [id number] [address] Hematocrit (Bld) [Volume fraction] 29.6 % Low 39.0-51.0 [facility] Comment on above: Order Comment: Speci men Type: BLOOD SPECIMENOrdering Facility: [facility] Address: [address] [place] [address] Performed By: #### 5 7021-8 ####[facility] LABORATORYCLIA [id number] [address] [place] Hemoglobin (Bld) [Mass/Vol] 9.0 g/dL Low 13.0-17.0 [facility] Comment on above: Order Comment: Speci men Type: BLOOD SPECIMENOrdering Facility: [facility] Address: [address] [place] [address] Performed By: #### 5 7021-8 ####[facility] LABORATORYCLIA [id number] [address] [place] IMMATURE GRAN % 0.5 % Normal [facility] Comment on above: Order Comment: Speci men Type: BLOOD SPECIMENOrdering Facility: [facility] Address: [address] [place] [address] Performed By: #### 5 7021-8 ####[facility] LABORATORYCLIA [id number] [address] IMMATURE GRAN ABS 0.05 k/uL Normal <0.10 [facility] Comment on above: Order Comment: Speci men Type: BLOOD SPECIMENOrdering Facility: [facility] Address: [address] [place] [address] Performed By: #### 5 7021-8 ####[facility] LABORATORYCLIA [id number] [address] Lymphocytes (Bld) [#/Vol] 1.93 10*3/uL Normal 1.00-4.00 [facility] Comment on above: Order Comment: Speci men Type: BLOOD SPECIMENOrdering Facility: [facility] Address: [address] [place] [address] Performed By: #### 5 7021-8 ####[facility] LABORATORYCLIA [id number] [address] Lymphocytes/100 WBC (Bld) 18.2 % Normal [facility] Comment on above: Order Comment: Speci men Type: BLOOD SPECIMENOrdering Facility: [facility] Address: [address] [place] [address] Performed By: #### 5 7021-8 ####[facility] LABORATORYCLIA [id number] [address] MCH (RBC) [Entitic mass] 28.1 pg Normal 26.0-34.0 [facility] Comment on above: Order Comment: Speci men Type: BLOOD SPECIMENOrdering Facility: [facility] Address: [address] [place] [address] Performed By: #### 5 7021-8 ####[facility] LABORATORYCLIA [id number] [address] MCHC (RBC) [Mass/Vol] 30.4 g/dL Low 30.5-36.0 [facility] Comment on above: Order Comment: Speci men Type: BLOOD SPECIMENOrdering Facility: [facility] Address: [address] [place] [address] Performed By: #### 5 7021-8 ####[facility] LABORATORYCLIA [id number] [address] [place] MCV (RBC) [Entitic vol] 92.5 fL Normal 80.0-100.0 [facility] Comment on above: Order Comment: Speci men Type: BLOOD SPECIMENOrdering Facility: [facility] Address: [address] [place] [address] Performed By: #### 5 7021-8 ####[facility] LABORATORYCLIA [id number] [address] [place] Monocytes (Bld) [#/Vol] 0.75 10*3/uL Normal <0.87 [facility] Comment on above: Order Comment: Speci men Type: BLOOD SPECIMENOrdering Facility: [facility] Address: [address] [place] [address] Performed By: #### 5 7021-8 ####[facility] LABORATORYCLIA [id number] [address] OF [facility] Monocytes/100 WBC (Bld) 7.1 % Normal [facility] Comment on above: Order Comment: Speci men Type: BLOOD SPECIMENOrdering Facility: [facility] Address: [address] [place] [address] Performed By: #### 5 7021-8 ####[facility] LABORATORYCLIA [id number] [address] [place] Neutrophils (Bld) [#/Vol] 7.65 10*3/uL High 1.45-7.50 [facility] Comment on above: Order Comment: Speci men Type: BLOOD SPECIMENOrdering Facility: [facility] Address: [address] [place] [address] Performed By: #### 5 7021-8 ####[facility] LABORATORYCLIA [id number] [address] [place] Neutrophils/100 WBC (Bld) 72.1 % Normal [facility] Comment on above: Order Comment: Speci men Type: BLOOD SPECIMENOrdering Facility: [facility] Address: [address] [place] [address] Performed By: #### 5 7021-8 ####[facility] LABORATORYCLIA [id number] [address] [place] Nucleated RBC (Bld) [#/Vol] 10*3/uL Normal <0.01 [facility] Comment on above: Order Comment: Speci men Type: BLOOD SPECIMENOrdering Facility: [facility] Address: [address] [place] [address] Performed By: #### 5 7021-8 ####[facility] LABORATORYCLIA [id number] [address] Nucleated RBC/100 WBC (Bld) [Ratio] 0.0 /100 WBC Normal [facility] Comment on above: Order Comment: Speci men Type: BLOOD SPECIMENOrdering Facility: [facility] Address: [address] [place] [address] Performed By: #### 5 7021-8 ####[facility] LABORATORYCLIA [id number] [address] [place] Platelet mean volume (Bld) [Entitic vol] 9.8 fL Normal 9.0-12.7 [facility] Comment on above: Order Comment: Speci men Type: BLOOD SPECIMENOrdering Facility: [facility] Address: [address] [place] [address] Performed By: #### 5 7021-8 ####[facility] LABORATORYCLIA [id number] [address] [place] Platelets (Bld) [#/Vol] 175 10*3/uL Normal 150-400 [facility] Comment on above: Order Comment: Speci men Type: BLOOD SPECIMENOrdering Facility: [facility] Address: [address] [place] [address] Performed By: #### 5 7021-8 ####[facility] LABORATORYCLIA [id number] [address] STATES OF [facility] RBC (Bld) [#/Vol] 3.20 10*6/uL Low 4.20-6.00 [facility] Comment on above: Order Comment: Speci men Type: BLOOD SPECIMENOrdering Facility: [facility] Address: [address] [place] [address] Performed By: #### 5 7021-8 ####[facility] LABORATORYCLIA [id number] [address] OF [facility] WBC (Bld) [#/Vol] 10.60 10*3/uL Normal 3.70-11.00 [facility] Comment on above: Order Comment: Speci men Type: BLOOD SPECIMENOrdering Facility: [facility] Address: [address] [place] [address] Performed By: #### 5 7021-8 ####[facility] LABORATORYCLIA [id number] [address] OF [facility] CT BRAIN WO IVCONon 08-09-19 CT BRAIN WO IVCON Normal [facility] NURSING PROGon 08-08-2021 NURSING PROG Normal [facility] Prealbumin [Mass/Vol]on Prealbumin Nephelometry [Mass/Vol] 29 mg/dL Normal 17-36 [facility] Comment on above: Order Comment: Speci men Type: BLOOD SPECIMENOrdering Facility: [facility] Address: [address] [place] [address] Performed By: #### 1 4338-8 ####[facility] LABORATORYCLIA [id number] [address] [place] SARS-CoV-2 RNA Resp Ql MEGAN+p robeon 08-08-2021 SARS-CoV-2 (COVID-19) RNA MEGAN+probe Ql (Resp) COVID 19 RESULT: SARS-CoV-2 (Agent of COVID-19) Not Detected by RT-PCR or equivalent method. This test has been authorized by FDA under an Emergency Use Authorization (EUA). Normal [facility] Comment on above: Performed By: #### 9 4500-6 ####[facility] LABORATORYCLIA [id number] [place] [address] [place] ALLIED HEALTHon 08-07-2021 ALLIED HEALTH Normal [facility] Basic metabolic 2000 panelon 08-07-2021 Anion gap [Moles/Vol] 9 mmol/L Normal 9-18 [facility] Comment on above: Order Comment: Speci men Type: BLOOD SPECIMENOrdering Facility: [facility] Address: [address] [place] [address] Performed By: #### 2 4321-2, 2776-05, , [facility] ####[facility] LABORATORYCLIA [id number] [place] [address] [place] Calcium [Mass/Vol] 9.4 mg/dL Normal 8.5-10.2 [facility] Comment on above: Order Comment: Speci men Type: BLOOD SPECIMENOrdering Facility: [facility] Address: [address] [place] [address] Performed By: #### 2 4321-2, 2776-05, , [facility] ####[facility] LABORATORYCLIA [id number] [place] [address] [place] Chloride [Moles/Vol] 98 mmol/L Normal 97-105 [facility] Comment on above: Order Comment: Speci men Type: BLOOD SPECIMENOrdering Facility: [facility] Address: [address] [place] [address] Performed By: #### 2 4321-2, 2776-05, , [facility] ####[facility] LABORATORYCLIA [id number] [place] [address] [place] CO2 [Moles/Vol] 29 mmol/L Normal 22-30 [facility] Comment on above: Order Comment: Speci men Type: BLOOD SPECIMENOrdering Facility: [facility] Address: [address] Performed By: #### 2 4321-2, 2777-, , [facility] ####[facility]RAWFORDSVILLEIA [id number] [place] [id number] [place] Creatinine [Mass/Vol] 0.67 mg/dL Low 0.73-1.22 [facility] Comment on above: Order Comment: Speci men Type: BLOOD SPECIMENOrdering Facility: [facility] Address: [address] [place] [place] [address] Performed By: #### 2 4321-2, 2777-, , [facility] ####[facility] [id number] [address] STATES OF [facility] ESTIMATED GLOMERULAR FILTRATION RATE 101 mL/min/1.73m??? Normal >=60 [facility] Comment on above: Order Comment: Shira men Type: BLOOD SPECIMENOrdering Facility: [facility] Address: [address] [place] [address] Result Comment: Luzmaria mated Glomerular Filtration Rate [...] GFR. Performed By: #### 2 4321-2, 2777-, , [facility] ####[facility] [id number] [place] [address] [place] Glucose [Mass/Vol] 117 mg/dL High 74-99 [facility] Comment on above: Order Comment: Speci men Type: BLOOD SPECIMENOrdering Facility: [facility] Address: [address] [address] Result Comment: The [place] [employer] (ADA) provides guidance for cutoff [...] Standards of Medical Care in Diabetes 2016, [place] [employer]. Diabetes Care. 2016.39(Suppl 1). Performed By: #### 2 4321-2, 2776-05, , [facility] ####[facility] LABORATORYCLIA [id number] [place] [address] [place] Potassium [Moles/Vol] 4.1 mmol/L Normal 3.7-5.1 [facility] Comment on above: Order Comment: Shira feldman Type: BLOOD SPECIMENOrdering Facility: [facility] Address: [address] [place] [address] Performed By: #### 2 4321-2, 2776-05, , [facility] ####[facility] INDIANACLIA [id number] [place] [address] [place] Sodium [Moles/Vol] 136 mmol/L Normal 136-144 [facility] Comment on above: Order Comment: Shira feldman Type: BLOOD SPECIMENOrdering Facility: [facility] Address: [address] [place] [address] Performed By: #### 2 4321-2, 2776-05, , [facility] ####[facility] LABORATORYCLIA [id number] [place] [address] [place] Urea nitrogen [Mass/Vol] 31 mg/dL High 9-24 [facility] Comment on above: Order Comment: Johni francia Type: BLOOD SPECIMENOrdering Facility: [facility] Address: [address] [place], [place] [address] Performed By: #### 2 4321-2, 2776-05, , [facility] ####[facility] LABORATORYCLIA [id number] [address] STATES OF [facility] CBC W Auto Differential pane l (Bld)on 08-07-2021 Basophils (Bld) [#/Vol] 0.03 10*3/uL Normal <0.11 [facility] Comment on above: Order Comment: Speci men Type: BLOOD SPECIMENOrdering Facility: [facility] Address: [address] [place] [address] Performed By: #### 5 7021-8 ####[facility] LABORATORYCLIA [id number] [address] Basophils/100 WBC (Bld) 0.3 % Normal [facility] Comment on above: Order Comment: Speci men Type: BLOOD SPECIMENOrdering Facility: [facility] Address: [address] [place] [address] Performed By: #### 5 7021-8 ####[facility] LABORATORYCLIA [id number] [address] Differential cell count method Nom (Bld) Auto Normal [facility] Comment on above: Order Comment: Speci men Type: BLOOD SPECIMENOrdering Facility: [facility] Address: [address] [place] [address] Performed By: #### 5 7021-8 ####[facility] LABORATORYCLIA [id number] [address] [place] Eosinophils (Bld) [#/Vol] 0.16 10*3/uL Normal <0.46 [facility] Comment on above: Order Comment: Speci men Type: BLOOD SPECIMENOrdering Facility: [facility] Address: [address] [place] [address] Performed By: #### 5 7021-8 ####[facility] LABORATORYCLIA [id number] [address] Eosinophils/100 WBC (Bld) 1.6 % Normal [facility] Comment on above: Order Comment: Speci men Type: BLOOD SPECIMENOrdering Facility: [facility] Address: [address] [place] [address] Performed By: #### 5 7021-8 ####[facility] LABORATORYCLIA [id number] [address] Erythrocyte distribution width (RBC) [Ratio] 18.1 % High 11.5-15.0 [facility] Comment on above: Order Comment: Speci men Type: BLOOD SPECIMENOrdering Facility: [facility] Address: [address] [place] [address] Performed By: #### 5 7021-8 ####[facility] LABORATORYCLIA [id number] [address] Hematocrit (Bld) [Volume fraction] 30.6 % Low 39.0-51.0 [facility] Comment on above: Order Comment: Speci men Type: BLOOD SPECIMENOrdering Facility: [facility] Address: [address] [place] [address] Performed By: #### 5 7021-8 ####[facility] LABORATORYCLIA [id number] [address] Hemoglobin (Bld) [Mass/Vol] 9.4 g/dL Low 13.0-17.0 [facility] Comment on above: Order Comment: Speci men Type: BLOOD SPECIMENOrdering Facility: [facility] Address: [address] [place] [address] Performed By: #### 5 7021-8 ####[facility] LABORATORYCLIA [id number] [address] IMMATURE GRAN % 0.4 % Normal [facility] Comment on above: Order Comment: Speci men Type: BLOOD SPECIMENOrdering Facility: [facility] Address: [address] [place] [address] Performed By: #### 5 7021-8 ####[facility] LABORATORYCLIA [id number] [address] IMMATURE GRAN ABS 0.04 k/uL Normal <0.10 [facility] Comment on above: Order Comment: Speci men Type: BLOOD SPECIMENOrdering Facility: [facility] Address: [address] [place] [address] Performed By: #### 5 7021-8 ####[facility] LABORATORYCLIA [id number] [address] Lymphocytes (Bld) [#/Vol] 2.05 10*3/uL Normal 1.00-4.00 [facility] Comment on above: Order Comment: Speci men Type: BLOOD SPECIMENOrdering Facility: [facility] Address: [address] [place] [address] Performed By: #### 5 7021-8 ####[facility] LABORATORYCLIA [id number] [address] Lymphocytes/100 WBC (Bld) 20.2 % Normal [facility] Comment on above: Order Comment: Speci men Type: BLOOD SPECIMENOrdering Facility: [facility] Address: [address] [place] [address] Performed By: #### 5 7021-8 ####[facility] LABORATORYCLIA [id number] [address] MCH (RBC) [Entitic mass] 28.8 pg Normal 26.0-34.0 [facility] Comment on above: Order Comment: Speci men Type: BLOOD SPECIMENOrdering Facility: [facility] Address: [address] [place] [address] Performed By: #### 5 7021-8 ####[facility] LABORATORYCLIA [id number] [address] STATES [facility] MCHC (RBC) [Mass/Vol] 30.7 g/dL Normal 30.5-36.0 [facility] Comment on above: Order Comment: Speci men Type: BLOOD SPECIMENOrdering Facility: [facility] Address: [address] [place] [address] Performed By: #### 5 7021-8 ####[facility] LABORATORYCLIA [id number] [place] [address] [place] MCV (RBC) [Entitic vol] 93.9 fL Normal 80.0-100.0 [facility] Comment on above: Order Comment: Speci men Type: BLOOD SPECIMENOrdering Facility: [facility] Address: [address] [place] [address] Performed By: #### 5 7021-8 ####[facility] LABORATORYCLIA [id number] [place] [address] [place] Monocytes (Bld) [#/Vol] 0.64 10*3/uL Normal <0.87 [facility] Comment on above: Order Comment: Speci men Type: BLOOD SPECIMENOrdering Facility: [facility] Address: [address] [place] [address] Performed By: #### 5 7021-8 ####[facility] LABORATORYCLIA [id number] [address] [place] Monocytes/100 WBC (Bld) 6.3 % Normal [facility] Comment on above: Order Comment: Speci men Type: BLOOD SPECIMENOrdering Facility: [facility] Address: [address] [place] [address] Performed By: #### 5 7021-8 ####[facility] LABORATORYCLIA [id number] [address] [place] Neutrophils (Bld) [#/Vol] 7.22 10*3/uL Normal 1.45-7.50 [facility] Comment on above: Order Comment: Speci men Type: BLOOD SPECIMENOrdering Facility: [facility] Address: [address] [place] [address] Performed By: #### 5 7021-8 ####[facility] LABORATORYCLIA [id number] [address] [place] Neutrophils/100 WBC (Bld) 71.2 % Normal [facility] Comment on above: Order Comment: Speci men Type: BLOOD SPECIMENOrdering Facility: [facility] Address: [address] [place] [address] Performed By: #### 5 7021-8 ####[facility] LABORATORYCLIA [id number] [place] [address] [place] Nucleated RBC (Bld) [#/Vol] 10*3/uL Normal <0.01 [facility] Comment on above: Order Comment: Speci men Type: BLOOD SPECIMENOrdering Facility: [facility] Address: [address] [place] [address] Performed By: #### 5 7021-8 ####[facility] LABORATORYCLIA [id number] [address] [place] Nucleated RBC/100 WBC (Bld) [Ratio] 0.0 /100 WBC Normal [facility] Comment on above: Order Comment: Speci men Type: BLOOD SPECIMENOrdering Facility: [facility] Address: [address] [place] [address] Performed By: #### 5 7021-8 ####[facility] LABORATORYCLIA [id number] [address] Platelet mean volume (Bld) [Entitic vol] 9.9 fL Normal 9.0-12.7 [facility] Comment on above: Order Comment: Speci men Type: BLOOD SPECIMENOrdering Facility: [facility] Address: [address] [place] [address] Performed By: #### 5 7021-8 ####[facility] LABORATORYCLIA [id number] [address] [place] Platelets (Bld) [#/Vol] 227 10*3/uL Normal 150-400 [facility] Comment on above: Order Comment: Speci men Type: BLOOD SPECIMENOrdering Facility: [facility] Address: [address] [place] [address] Performed By: #### 5 7021-8 ####[facility] LABORATORYCLIA [id number] [address] [place] RBC (Bld) [#/Vol] 3.26 10*6/uL Low 4.20-6.00 [facility] Comment on above: Order Comment: Speci men Type: BLOOD SPECIMENOrdering Facility: [facility] Address: [address] [place] [address] Performed By: #### 5 7021-8 ####[facility] LABORATORYCLIA [id number] [address] OF [facility] WBC (Bld) [#/Vol] 10.14 10*3/uL Normal 3.70-11.00 [facility] Comment on above: Order Comment: Speci men Type: BLOOD SPECIMENOrdering Facility: [facility] Address: [address] [place] [address] Performed By: #### 5 7021-8 ####[facility] LABORATORYCLIA [id number] [address] BRAIN WO IVCONon 08-08-19 CT BRAIN WO IVCON Normal [facility] HEPATIC FUNCTION PNLon 08-07 Albumin [Mass/Vol] 3.6 g/dL Low 3.9-4.9 [facility] Comment on above: Order Comment: Speci men Type: BLOOD SPECIMENOrdering Facility: [facility] Address: [address] [place] [address] Performed By: #### 2 4321-2, 2776-05, , [facility] ####[facility] LABORATORYCLIA [id number] [address] STATES OF [facility] ALP [Catalytic activity/Vol] 124 U/L High 38-113 [facility] Comment on above: Order Comment: Speci men Type: BLOOD SPECIMENOrdering Facility: [facility] Address: [address] [place] [address] Performed By: #### 2 4321-2, 2776-05, , [facility] ####[facility] LABORATORYCLIA [id number] [address] STATES OF [facility] ALT With P-5'-P [Catalytic activity/Vol] 29 U/L Normal 10-54 [facility] Comment on above: Order Comment: Speci men Type: BLOOD SPECIMENOrdering Facility: [facility] Address: [address] [place], [place] [address] Performed By: #### 2 4321-2, 2776-05, , [facility] ####[facility] LABORATORYCLIA [id number] [place] [address] [place] AST With P-5'-P [Catalytic activity/Vol] 18 U/L Normal 14-40 [facility] Comment on above: Order Comment: Speci men Type: BLOOD SPECIMENOrdering Facility: [facility] Address: [address] [place], [place] [address] Performed By: #### 2 4321-2, 2776-05, , [facility] ####[facility] LABORATORYCLIA [id number] [address] [place] Bilirubin [Mass/Vol] 0.3 mg/dL Normal 0.2-1.3 [facility] Comment on above: Order Comment: Speci men Type: BLOOD SPECIMENOrdering Facility: [facility] Address: [address] [place], [place] [address] Performed By: #### 2 4321-2, 2776-05, , [facility] ####[facility] LABORATORYCLIA [id number] [address] [place] Bilirubin.conjugated [Mass/Vol] mg/dL Normal <0.2 [facility] Comment on above: Order Comment: Speci men Type: BLOOD SPECIMENOrdering Facility: [facility] Address: [address] [place], [place] [address] Performed By: #### 2 4321-2, 2776-05, , [facility] ####[facility] LABORATORYCLIA [id number] [place] [address] [place] Protein [Mass/Vol] 6.4 g/dL Normal 6.3-8.0 [facility] Comment on above: Order Comment: Speci men Type: BLOOD SPECIMENOrdering Facility: [facility] Address: [address] [place] [address] Performed By: #### 2 4321-2, 2776-, , [facility] ####[facility] LABORATORYCLIA [id number] [address] [place] Magnesium SerPl-ncon 08-07 Magnesium [Mass/Vol] 2.3 mg/dL Normal 1.7-2.3 [facility] Comment on above: Order Comment: Speci men Type: BLOOD SPECIMENOrdering Facility: [facility] Address: [address] Performed By: #### 2 4321-2, 2776-05, , [facility] ####[facility] LABORATORYCLIA [id number] [address] STATES OF [facility] NURSING PROGon 08-07-2021 NURSING PROG Normal [facility] Phosphate [facility]-ncon 08-07 Phosphate [Mass/Vol] 3.5 mg/dL Normal 2.7-4.8 [facility] Comment on above: Order Comment: Speci men Type: BLOOD SPECIMENOrdering Facility: [facility] Address: [address] [place] [address] Performed By: #### 2 4321-2, 2776-05, , [facility] ####[facility] LABORATORYCLIA [id number] [address] [place] ANES POSTPROC EVALon 022 ANES POSTPROC EVAL Normal [facility] Basic metabolic 2000 panelon 08-06-2021 Anion gap [Moles/Vol] 11 mmol/L Normal 9-18 [facility] Comment on above: Order Comment: Speci men Type: BLOOD SPECIMENOrdering Facility: [facility] Address: [address] Performed By: #### 2 4321-2, 2776-05, ####[facility] LABORATORYCLIA [id number] [address] [place] Calcium [Mass/Vol] 8.2 mg/dL Low 8.5-10.2 [facility] Comment on above: Order Comment: Speci men Type: BLOOD SPECIMENOrdering Facility: [facility] Address: [address] [place] [address] Performed By: #### 2 4321-2, 2776-05, ####[facility] LABORATORYCLIA [id number] [address] [place] Chloride [Moles/Vol] 100 mmol/L Normal 97-105 [facility] Comment on above: Order Comment: Speci men Type: BLOOD SPECIMENOrdering Facility: [facility] Address: [address] [place] [address] Performed By: #### 2 4321-2, 2776-05, ####[facility] LABORATORYCLIA [id number] [address] STATES OF [facility] CO2 [Moles/Vol] 23 mmol/L Normal 22-30 [facility] Comment on above: Order Comment: Speci men Type: BLOOD SPECIMENOrdering Facility: [facility] Address: [address] [place] [address] Performed By: #### 2 4321-2, 2776-05, ####[facility] LABORATORYCLIA [id number] [address] STATES OF [facility] Creatinine [Mass/Vol] 0.55 mg/dL Low 0.73-1.22 [facility] Comment on above: Order Comment: Speci men Type: BLOOD SPECIMENOrdering Facility: [facility] Address: [address] [place], [place] [address] Performed By: #### 2 4321-2, 2776-05, ####[facility] LABORATORYCLIA [id number] [address] ESTIMATED GLOMERULAR FILTRATION RATE 107 mL/min/1.73m??? Normal >=60 [facility] Comment on above: Order Comment: Speci men Type: BLOOD SPECIMENOrdering Facility: [facility] Address: [address] [place] [address] Result Comment: Luzmaria mated Glomerular Filtration Rate [...] By: #### 2 4321-2, 2777-, ####[facility] CRAWFORDSVILLEIA [id number] [place] [address] [place] Glucose [Mass/Vol] 275 mg/dL High 74-99 [facility] Comment on above: Order Comment: Shira feldman Type: BLOOD SPECIMENOrdering Facility: [facility] Address: [address] [id number] Result Comment: The [place] [employer] (ADA) provides guidance for cutoff [...] Standards of Medical Care in Diabetes 2016, [place] [employer]. Diabetes Care. 2016.39(Suppl 1). Performed By: #### 2 4321-2, 27711-04, ####[facility] LABORATORYIA [id number] [place] [address] [place] Potassium [Moles/Vol] 3.6 mmol/L Low 3.7-5.1 [facility] Comment on above: Order Comment: Shira feldman Type: BLOOD SPECIMENOrdering Facility: [facility] Address: [address] [place] [address] Performed By: #### 2 4321-2, 2776-05, ####[facility] LABORATORYCLIA [id number] [place] [address] [place] Sodium [Moles/Vol] 134 mmol/L Low 136-144 [facility] Comment on above: Order Comment: Speci men Type: BLOOD SPECIMENOrdering Facility: [facility] Address: [address] [place] [address] Performed By: #### 2 4321-2, 2776-05, ####[facility] LABORATORYCLIA [id number] [place] [address] [place] Urea nitrogen [Mass/Vol] 29 mg/dL High 9-24 [facility] Comment on above: Order Comment: Speci men Type: BLOOD SPECIMENOrdering Facility: [facility] Address: [address] [place] [address] Performed By: #### 2 4321-2, 2776-05, ####[facility] LABORATORYCLIA [id number] [address] [place] CBC W Auto Differential pane l (Bld)on 08-06-2021 Basophils (Bld) [#/Vol] 0.03 10*3/uL Normal <0.11 [facility] Comment on above: Order Comment: Speci men Type: BLOOD SPECIMENOrdering Facility: [facility] Address: [address] [place] [address] Performed By: #### 5 7021-8 ####[facility] LABORATORYCLIA [id number] [address] [place] Basophils/100 WBC (Bld) 0.3 % Normal [facility] Comment on above: Order Comment: Speci men Type: BLOOD SPECIMENOrdering Facility: [facility] Address: [address] [place] [address] Performed By: #### 5 7021-8 ####[facility] LABORATORYCLIA [id number] [address] STATES [facility] Differential cell count method Nom (Bld) Auto Normal [facility] Comment on above: Order Comment: Speci men Type: BLOOD SPECIMENOrdering Facility: [facility] Address: [address] [place] [address] Performed By: #### 5 7021-8 ####[facility] LABORATORYCLIA [id number] [address] [place] Eosinophils (Bld) [#/Vol] 0.18 10*3/uL Normal <0.46 [facility] Comment on above: Order Comment: Speci men Type: BLOOD SPECIMENOrdering Facility: [facility] Address: [address] [place] [address] Performed By: #### 5 7021-8 ####[facility] LABORATORYCLIA [id number] [address] [place] Eosinophils/100 WBC (Bld) 1.6 % Normal [facility] Comment on above: Order Comment: Speci men Type: BLOOD SPECIMENOrdering Facility: [facility] Address: [address] [place] [address] Performed By: #### 5 7021-8 ####[facility] LABORATORYCLIA [id number] [address] [place] Erythrocyte distribution width (RBC) [Ratio] 17.9 % High 11.5-15.0 [facility] Comment on above: Order Comment: Speci men Type: BLOOD SPECIMENOrdering Facility: [facility] Address: [address] [place] [address] Performed By: #### 5 7021-8 ####[facility] LABORATORYCLIA [id number] [address] [place] Hematocrit (Bld) [Volume fraction] 27.6 % Low 39.0-51.0 [facility] Comment on above: Order Comment: Speci men Type: BLOOD SPECIMENOrdering Facility: [facility] Address: [address] [place] [address] Performed By: #### 5 7021-8 ####[facility] LABORATORYCLIA [id number] [address] OF [facility] Hemoglobin (Bld) [Mass/Vol] 8.5 g/dL Low 13.0-17.0 [facility] Comment on above: Order Comment: Speci men Type: BLOOD SPECIMENOrdering Facility: [facility] Address: [address] [place] [address] Performed By: #### 5 7021-8 ####[facility] LABORATORYCLIA [id number] [address] [place] IMMATURE GRAN % 0.6 % Normal [facility] Comment on above: Order Comment: Speci men Type: BLOOD SPECIMENOrdering Facility: [facility] Address: [address] [place] [address] Performed By: #### 5 7021-8 ####[facility] LABORATORYCLIA [id number] [address] IMMATURE GRAN ABS 0.07 k/uL Normal <0.10 [facility] Comment on above: Order Comment: Speci men Type: BLOOD SPECIMENOrdering Facility: [facility] Address: [address] [place] [address] Performed By: #### 5 7021-8 ####[facility] LABORATORYCLIA [id number] [address] [place] Lymphocytes (Bld) [#/Vol] 1.81 10*3/uL Normal 1.00-4.00 [facility] Comment on above: Order Comment: Speci men Type: BLOOD SPECIMENOrdering Facility: [facility] Address: [address] [place] [address] Performed By: #### 5 7021-8 ####[facility] LABORATORYCLIA [id number] [address] Lymphocytes/100 WBC (Bld) 15.7 % Normal [facility] Comment on above: Order Comment: Speci men Type: BLOOD SPECIMENOrdering Facility: [facility] Address: [address] [place] [address] Performed By: #### 5 7021-8 ####[facility] LABORATORYCLIA [id number] [address] MCH (RBC) [Entitic mass] 28.6 pg Normal 26.0-34.0 [facility] Comment on above: Order Comment: Speci men Type: BLOOD SPECIMENOrdering Facility: [facility] Address: [address] [place] [address] Performed By: #### 5 7021-8 ####[facility] LABORATORYCLIA [id number] [facility] MCHC (RBC) [Mass/Vol] 30.8 g/dL Normal 30.5-36.0 [facility] Comment on above: Order Comment: Speci men Type: BLOOD SPECIMENOrdering Facility: [facility] Address: [address] [place] [address] Performed By: #### 5 7021-8 ####[facility] LABORATORYCLIA [id number] [address] MCV (RBC) [Entitic vol] 92.9 fL Normal 80.0-100.0 [facility] Comment on above: Order Comment: Speci men Type: BLOOD SPECIMENOrdering Facility: [facility] Address: [address] [place] [address] Performed By: #### 5 7021-8 ####[facility] LABORATORYCLIA [id number] [address] [facility] Monocytes (Bld) [#/Vol] 0.63 10*3/uL Normal <0.87 [facility] Comment on above: Order Comment: Speci men Type: BLOOD SPECIMENOrdering Facility: [facility] Address: [address] [place] [address] Performed By: #### 5 7021-8 ####[facility] LABORATORYCLIA [id number] [address] Monocytes/100 WBC (Bld) 5.5 % Normal [facility] Comment on above: Order Comment: Speci men Type: BLOOD SPECIMENOrdering Facility: [facility] Address: [address] [address] Performed By: #### 5 7021-8 ####[facility] LABORATORYCLIA [id number] [address] [place] Neutrophils (Bld) [#/Vol] 8.78 10*3/uL High 1.45-7.50 [facility] Comment on above: Order Comment: Speci men Type: BLOOD SPECIMENOrdering Facility: [facility] Address: [address] [place] [address] Performed By: #### 5 7021-8 ####[facility] LABORATORYCLIA [id number] [address] [place] Neutrophils/100 WBC (Bld) 76.3 % Normal [facility] Comment on above: Order Comment: Speci men Type: BLOOD SPECIMENOrdering Facility: [facility] Address: [address] [place] [address] Performed By: #### 5 7021-8 ####[facility] LABORATORYCLIA [id number] [address] [place] Nucleated RBC (Bld) [#/Vol] 10*3/uL Normal <0.01 [facility] Comment on above: Order Comment: Speci men Type: BLOOD SPECIMENOrdering Facility: [facility] Address: [address] [place] [address] Performed By: #### 5 7021-8 ####[facility] LABORATORYCLIA [id number] [address] [place] Nucleated RBC/100 WBC (Bld) [Ratio] 0.0 /100 WBC Normal [facility] Comment on above: Order Comment: Speci men Type: BLOOD SPECIMENOrdering Facility: [facility] Address: [address] [place] [address] Performed By: #### 5 7021-8 ####[facility] LABORATORYCLIA [id number] [place] [address] [place] Platelet mean volume (Bld) [Entitic vol] 9.9 fL Normal 9.0-12.7 [facility] Comment on above: Order Comment: Speci men Type: BLOOD SPECIMENOrdering Facility: [facility] Address: [address] [place] [address] Performed By: #### 5 7021-8 ####[facility] LABORATORYCLIA [id number] [address] [place] Platelets (Bld) [#/Vol] 230 10*3/uL Normal 150-400 [facility] Comment on above: Order Comment: Speci men Type: BLOOD SPECIMENOrdering Facility: [facility] Address: [address] [place] [address] Performed By: #### 5 7021-8 ####[facility] LABORATORYCLIA [id number] [address] [place] RBC (Bld) [#/Vol] 2.97 10*6/uL Low 4.20-6.00 [facility] Comment on above: Order Comment: Speci men Type: BLOOD SPECIMENOrdering Facility: [facility] Address: [address] [place] [address] Performed By: #### 5 7021-8 ####[facility] LABORATORYCLIA [id number] [address] [place] WBC (Bld) [#/Vol] 11.50 10*3/uL High 3.70-11.00 [facility] Comment on above: Order Comment: Speci men Type: BLOOD SPECIMENOrdering Facility: [facility] Address: [address] [place] [address] Performed By: #### 5 7021-8 ####[facility] LABORATORYCLIA [id number] [address] [facility] CONSULT PROGon 08-06-2021 CONSULT PROG Normal [facility] Magnesium SerPl-mCncon 08-06 Magnesium [Mass/Vol] 1.9 mg/dL Normal 1.7-2.3 [facility] Comment on above: Order Comment: Speci men Type: BLOOD SPECIMENOrdering Facility: [facility] Address: [address] [place] [address] Performed By: #### 2 4321-2, 277-1, ####[facility] LABORATORYCLIA [id number] [address] [place] NURSING PROGon 08-06-2021 NURSING PROG Normal [facility] OPERATIVE NOon 08-06-2021 OPERATIVE NO Normal [facility] Phosphate SerPl-mCncon 08-06 Phosphate [Mass/Vol] 4.2 mg/dL Normal 2.7-4.8 [facility] Comment on above: Order Comment: Speci men Type: BLOOD SPECIMENOrdering Facility: [facility] Address: [address] [place] [address] Performed By: #### 2 4321-2, 2776-05, ####[facility] LABORATORYCLIA [id number] [address] [place] ALLIED HEALTHon 08-05-2021 ALLIED HEALTH Normal [facility] ALLIED HEALTH Normal [facility] ANES PRE-OPon 08-05-2021 ANES PRE-OP Normal [facility] BRIEF OP NOTon 08-05-2021 BRIEF OP NOT Normal [facility] Bacteria Spec Resp Culton Bacteria identified Respiratory culture Nom (Unsp spec) CULTURE, RESPIRATORY: Few Normal respiratory chris present ORGANISM ID: 1 Few Proteus species Insignificant colony count. No further workup. GRAM STAIN: No organisms seen Few Polymorphonuclear leukocytes Few Epithelial cells Abnormal [facility] Comment on above: Performed By: #### 3 2355-0 ####[facility] LABORATORYCLIA [id number] [address] [place] Bacteria Ur Culton Bacteria identified Cx Nom (U) CULTURE, URINE: No growth (<1,000 CFU/ml) Normal [facility] Comment on above: Performed By: #### 6 30-4 ####[facility]ORATORYCLIA [id number] [place] [address] [place] Basic metabolic 2000 panelon 08-05-2021 Anion gap [Moles/Vol] 7 mmol/L Low 9-18 [facility] Comment on above: Order Comment: Speci men Type: BLOOD SPECIMENOrdering Facility: [facility] Address: [address] [place] [address] Performed By: #### 2 4321-2 ####[facility]ORATORYCLIA [id number] [place] [address] [place] Calcium [Mass/Vol] 9.5 mg/dL Normal 8.5-10.2 [facility] Comment on above: Order Comment: Speci men Type: BLOOD SPECIMENOrdering Facility: [facility] Address: [address] [place] [address] Performed By: #### 2 4321-2 ####[facility] LABORATORYCLIA [id number] [address] [place] Chloride [Moles/Vol] 97 mmol/L Normal 97-105 [facility] Comment on above: Order Comment: Speci men Type: BLOOD SPECIMENOrdering Facility: [facility] Address: [address] [place] [address] Performed By: #### 2 4321-2 ####[facility] LABORATORYCLIA [id number] [place] [address] [place] CO2 [Moles/Vol] 30 mmol/L Normal 22-30 [facility] Comment on above: Order Comment: Speci men Type: BLOOD SPECIMENOrdering Facility: [facility] Address: [address] [place] [address] Performed By: #### 2 4321-2 ####[facility] LABORATORYCLIA [id number] [place] [address] [place] Creatinine [Mass/Vol] 0.61 mg/dL Low 0.73-1.22 [facility] Comment on above: Order Comment: Speci men Type: BLOOD SPECIMENOrdering Facility: [facility] Address: [address] [place] [address] Performed By: #### 2 4321-2 ####[facility]NACLIA [id number] [address] ESTIMATED GLOMERULAR FILTRATION RATE 104 mL/min/1.73m??? Normal >=60 [facility] Comment on above: Order Comment: Speccara feldman Type: BLOOD SPECIMENOrdering Facility: [facility] Address: [address] [place] [address] Result Comment: Luzmaria mated Glomerular Filtration Rate [...] Performed By: #### 2 4321-2 ####[facility] CRAWFORDSVILLEIA [id number] [place] [address] [place] [facility] Glucose [Mass/Vol] 124 mg/dL High 74-99 [facility] Comment on above: Order Comment: Shira feldman Type: BLOOD SPECIMENOrdering Facility: [facility] Address: [address] [place] [address] Result Comment: The [place] [employer] (ADA) provides guidance for cutoff [...] Standards of Medical Care in Diabetes 2016, [place] [employer]. Diabetes Care. 2016.39(Suppl 1). Performed By: #### 2 4321-2 ####[facility] LABORATORYCLIA [id number] [place] [id number] [place] Potassium [Moles/Vol] 4.9 mmol/L Normal 3.7-5.1 [facility] Comment on above: Order Comment: Speci men Type: BLOOD SPECIMENOrdering Facility: [facility] Address: [address] [place] [address] Performed By: #### 2 4321-2 ####[facility] LABORATORYCLIA [id number] [address] [place] Sodium [Moles/Vol] 134 mmol/L Low 136-144 [facility] Comment on above: Order Comment: Speci men Type: BLOOD SPECIMENOrdering Facility: [facility] Address: [address] [place] [address] Performed By: #### 2 4321-2 ####[facility] LABORATORYCLIA [id number] [address] [place] Urea nitrogen [Mass/Vol] 40 mg/dL High 9-24 [facility] Comment on above: Order Comment: Speci men Type: BLOOD SPECIMENOrdering Facility: [facility] Address: [address] [place] [address] Performed By: #### 2 4321-2 ####[facility] LABORATORYCLIA [id number] [address] [place] CBC W Auto Differential pane l (Bld)on 08-05-2021 Basophils (Bld) [#/Vol] 0.04 10*3/uL Normal <0.11 [facility] Comment on above: Order Comment: Speci men Type: BLOOD SPECIMENOrdering Facility: [facility] Address: [address] [place] [address] Performed By: #### 5 7021-8 ####[facility] LABORATORYCLIA [id number] [address] STATES [facility] Basophils/100 WBC (Bld) 0.3 % Normal [facility] Comment on above: Order Comment: Speci men Type: BLOOD SPECIMENOrdering Facility: [facility] Address: [address] [place] [address] Performed By: #### 5 7021-8 ####[facility] LABORATORYCLIA [id number] [address] Differential cell count method Nom (Bld) Auto Normal [facility] Comment on above: Order Comment: Speci men Type: BLOOD SPECIMENOrdering Facility: [facility] Address: [address] [place] [address] Performed By: #### 5 7021-8 ####[facility] LABORATORYCLIA [id number] [address] [facility] Eosinophils (Bld) [#/Vol] 0.42 10*3/uL Normal <0.46 [facility] Comment on above: Order Comment: Speci men Type: BLOOD SPECIMENOrdering Facility: [facility] Address: [address] [place] [address] Performed By: #### 5 7021-8 ####[facility] LABORATORYCLIA [id number] [address] Eosinophils/100 WBC (Bld) 3.6 % Normal [facility] Comment on above: Order Comment: Speci men Type: BLOOD SPECIMENOrdering Facility: [facility] Address: [address] [place] [address] Performed By: #### 5 7021-8 ####[facility] LABORATORYCLIA [id number] [address] Erythrocyte distribution width (RBC) [Ratio] 17.9 % High 11.5-15.0 [facility] Comment on above: Order Comment: Speci men Type: BLOOD SPECIMENOrdering Facility: [facility] Address: [address] [place] [address] Performed By: #### 5 7021-8 ####[facility] LABORATORYCLIA [id number] [address] Hematocrit (Bld) [Volume fraction] 30.8 % Low 39.0-51.0 [facility] Comment on above: Order Comment: Speci men Type: BLOOD SPECIMENOrdering Facility: [facility] Address: [address] [place] [address] Performed By: #### 5 7021-8 ####[facility] LABORATORYCLIA [id number] [address] Hemoglobin (Bld) [Mass/Vol] 9.6 g/dL Low 13.0-17.0 [facility] Comment on above: Order Comment: Speci men Type: BLOOD SPECIMENOrdering Facility: [facility] Address: [address] [place] [address] Performed By: #### 5 7021-8 ####[facility] LABORATORYCLIA [id number] [address] IMMATURE GRAN % 0.5 % Normal [facility] Comment on above: Order Comment: Speci men Type: BLOOD SPECIMENOrdering Facility: [facility] Address: [address] [place] [address] Performed By: #### 5 7021-8 ####[facility] LABORATORYCLIA [id number] [address] IMMATURE GRAN ABS 0.06 k/uL Normal <0.10 [facility] Comment on above: Order Comment: Speci men Type: BLOOD SPECIMENOrdering Facility: [facility] Address: [address] [place] [address] Performed By: #### 5 7021-8 ####[facility] LABORATORYCLIA [id number] [address] Lymphocytes (Bld) [#/Vol] 2.17 10*3/uL Normal 1.00-4.00 [facility] Comment on above: Order Comment: Speci men Type: BLOOD SPECIMENOrdering Facility: [facility] Address: [address] [place] [address] Performed By: #### 5 7021-8 ####[facility] LABORATORYCLIA [id number] [address] Lymphocytes/100 WBC (Bld) 18.7 % Normal [facility] Comment on above: Order Comment: Speci men Type: BLOOD SPECIMENOrdering Facility: [facility] Address: [address] [place] [address] Performed By: #### 5 7021-8 ####[facility] LABORATORYCLIA [id number] [address] MCH (RBC) [Entitic mass] 28.9 pg Normal 26.0-34.0 [facility] Comment on above: Order Comment: Speci men Type: BLOOD SPECIMENOrdering Facility: [facility] Address: [address] [place] [address] Performed By: #### 5 7021-8 ####[facility] LABORATORYCLIA [id number] [address] MCHC (RBC) [Mass/Vol] 31.2 g/dL Normal 30.5-36.0 [facility] Comment on above: Order Comment: Speci men Type: BLOOD SPECIMENOrdering Facility: [facility] Address: [address] [place] [address] Performed By: #### 5 7021-8 ####[facility] LABORATORYCLIA [id number] [address] MCV (RBC) [Entitic vol] 92.8 fL Normal 80.0-100.0 [facility] Comment on above: Order Comment: Speci men Type: BLOOD SPECIMENOrdering Facility: [facility] Address: [address] [place] [address] Performed By: #### 5 7021-8 ####[facility] LABORATORYCLIA [id number] [address] Monocytes (Bld) [#/Vol] 0.71 10*3/uL Normal <0.87 [facility] Comment on above: Order Comment: Speci men Type: BLOOD SPECIMENOrdering Facility: [facility] Address: [address] [place] [address] Performed By: #### 5 7021-8 ####[facility]ORATORYCLIA [id number] [address] [place] Monocytes/100 WBC (Bld) 6.1 % Normal [facility] Comment on above: Order Comment: Speci men Type: BLOOD SPECIMENOrdering Facility: [facility] Address: [address] [place] [address] Performed By: #### 5 7021-8 ####[facility] LABORATORYCLIA [id number] [place] [address] [place] Neutrophils (Bld) [#/Vol] 8.19 10*3/uL High 1.45-7.50 [facility] Comment on above: Order Comment: Speci men Type: BLOOD SPECIMENOrdering Facility: [facility] Address: [address] [place] [address] Performed By: #### 5 7021-8 ####[facility] LABORATORYCLIA [id number] [address] [place] Neutrophils/100 WBC (Bld) 70.8 % Normal [facility] Comment on above: Order Comment: Speci men Type: BLOOD SPECIMENOrdering Facility: [facility] Address: [address] [place] [address] Performed By: #### 5 7021-8 ####[facility]ORATORYCLIA [id number] [address] [place] Nucleated RBC (Bld) [#/Vol] 10*3/uL Normal <0.01 [facility] Comment on above: Order Comment: Speci men Type: BLOOD SPECIMENOrdering Facility: [facility] Address: [address] [place] [address] Performed By: #### 5 7021-8 ####[facility] LABORATORYCLIA [id number] [address] [place] Nucleated RBC/100 WBC (Bld) [Ratio] 0.0 /100 WBC Normal [facility] Comment on above: Order Comment: Speci men Type: BLOOD SPECIMENOrdering Facility: [facility] Address: [address] Performed By: #### 5 7021-8 ####[facility] LABORATORYCLIA [id number] [address] Platelet mean volume (Bld) [Entitic vol] 9.6 fL Normal 9.0-12.7 [facility] Comment on above: Order Comment: Speci men Type: BLOOD SPECIMENOrdering Facility: [facility] Address: [address] [place] [address] Performed By: #### 5 7021-8 ####[facility] LABORATORYCLIA [id number] [address] [place] Platelets (Bld) [#/Vol] 339 10*3/uL Normal 150-400 [facility] Comment on above: Order Comment: Speci men Type: BLOOD SPECIMENOrdering Facility: [facility] Address: [address] [place] [address] Performed By: #### 5 7021-8 ####[facility] LABORATORYCLIA [id number] [address] [place] RBC (Bld) [#/Vol] 3.32 10*6/uL Low 4.20-6.00 [facility] Comment on above: Order Comment: Speci men Type: BLOOD SPECIMENOrdering Facility: [facility] Address: [address] [place] [address] Performed By: #### 5 7021-8 ####[facility] LABORATORYCLIA [id number] [address] [place] WBC (Bld) [#/Vol] 11.59 10*3/uL High 3.70-11.00 [facility] Comment on above: Order Comment: Speci men Type: BLOOD SPECIMENOrdering Facility: [facility] Address: [address] [place] [address] Performed By: #### 5 7021-8 ####[facility] LABORATORYCLIA [id number] [address] OF [place] BRAIN WO IVCONon 08-06-[address] BRAIN WO IVCON Normal [facility] Magnesium SerPl-mCncon 08-05 Magnesium [Mass/Vol] 2.2 mg/dL Normal 1.7-2.3 [facility] Comment on above: Order Comment: Speci men Type: BLOOD SPECIMENOrdering Facility: [facility] Address: [address] [place] [address] Performed By: #### 1 9123-9, 2777-1 ####[facility] LABORATORYCLIA [id number] [address] [place] NURSING PROGon 08-05-2021 NURSING PROG Normal [facility] NURSING PROG Normal [facility] NUTRITIONon 08-05-2021 NUTRITION Normal [facility] OPERATIVE NOon 08-05-2021 OPERATIVE NO Normal [facility] Phosphate SerPl-mCncon 08-05 Phosphate [Mass/Vol] 4.6 mg/dL Normal 2.7-4.8 [facility] Comment on above: Order Comment: Speci men Type: BLOOD SPECIMENOrdering Facility: [facility] Address: [address] [place] [address] Performed By: #### 1 9123-9, 2777-1 ####[facility] LABORATORYCLIA [id number] [address] [place] THERAPY NTon 08-05-2021 THERAPY NT Normal [facility] THERAPY NT Normal [facility] Urinalysis complete panel (U )on 08-05-2021 Bilirubin Ql (U) Negative Normal Negative [facility] Comment on above: Order Comment: Speci men Type: URINE SPECIMENOrdering Facility: [facility] Address: [address] [place] [address] Performed By: #### 2 4356-8 ####[facility] LABORATORYCLIA [id number] [address] [place] Clarity (Unsp spec) Clear Normal Clear [facility] Comment on above: Order Comment: Speci men Type: URINE SPECIMENOrdering Facility: [facility] Address: [address] [place] [address] Performed By: #### 2 4356-8 ####[facility] LABORATORYCLIA [id number] [address] STATES OF [facility] Color (U) Light Yellow Normal yellow [facility] Comment on above: Order Comment: Speci men Type: URINE SPECIMENOrdering Facility: [facility] Address: [address] [place] [address] Performed By: #### 2 4356-8 ####[facility] LABORATORYCLIA [id number] [address] Epithelial cells LM.HPF (Urine sed) [#/Area] Few Abnormal None Seen [facility] Comment on above: Order Comment: Speci men Type: URINE SPECIMENOrdering Facility: [facility] Address: [address] [place] [address] Performed By: #### 2 4356-8 ####[facility]ORATORYCLIA [id number] [address] Glucose Test strip (U) [Mass/Vol] Negative Normal Negative [facility] Comment on above: Order Comment: Speci men Type: URINE SPECIMENOrdering Facility: [facility] Address: [address] [place] [address] Performed By: #### 2 4356-8 ####[facility] LABORATORYCLIA [id number] [address] Hemoglobin Ql (U) Negative Normal Negative [facility] Comment on above: Order Comment: Speci men Type: URINE SPECIMENOrdering Facility: [facility] Address: [address] [place] [address] Performed By: #### 2 4356-8 ####[facility] LABORATORYCLIA [id number] [address] Hyaline casts (Urine sed) [#/Area] 1-3 /LPF Abnormal 0 /LPF [facility] Comment on above: Order Comment: Speci men Type: URINE SPECIMENOrdering Facility: [facility] Address: [address] [place] [address] Performed By: #### 2 4356-8 ####[facility]ORATORYCLIA [id number] [address] Ketones Ql (U) Negative Normal Negative [facility] Comment on above: Order Comment: Speci men Type: URINE SPECIMENOrdering Facility: [facility] Address: [address] [place] [address] Performed By: #### 2 4356-8 ####[facility]ATORYCLIA [id number] [address] Leukocyte esterase Test strip Ql (U) Negative Normal Negative [facility] Comment on above: Order Comment: Speci men Type: URINE SPECIMENOrdering Facility: [facility] Address: [address] [place] [address] Performed By: #### 2 4356-8 ####[facility]ORATORYCLIA [id number] [address] [place] Nitrite Ql (U) Negative Normal Negative [facility] Comment on above: Order Comment: Speci men Type: URINE SPECIMENOrdering Facility: [facility] Address: [address] [place] [address] Performed By: #### 2 4356-8 ####[facility] LABORATORYCLIA [id number] [address] [place] pH (U) 6.0 [pH] Normal 5.0-8.0 [facility] Comment on above: Order Comment: Speci men Type: URINE SPECIMENOrdering Facility: [facility] Address: [address] [place] [address] Performed By: #### 2 4356-8 ####[facility]ORATORYCLIA [id number] [address] [place] Protein (U) [Mass/Vol] Negative Normal Negative [facility] Comment on above: Order Comment: Speci men Type: URINE SPECIMENOrdering Facility: [facility] Address: [address] [place] [address] Performed By: #### 2 4356-8 ####[facility] LABORATORYCLIA [id number] [address] RBC LM.HPF (Urine sed) [#/Area] 0-3 /HPF Normal 0-3 /HPF [facility] Comment on above: Order Comment: Speci men Type: URINE SPECIMENOrdering Facility: [facility] Address: [address] [place] [address] Performed By: #### 2 4356-8 ####[facility] LABORATORYCLIA [id number] [address] Specific gravity (U) [Rel density] 1.015 Normal 1.005-1.030 [facility] Comment on above: Order Comment: Speci men Type: URINE SPECIMENOrdering Facility: [facility] Address: [address] [place] [address] Performed By: #### 2 4356-8 ####[facility] LABORATORYCLIA [id number] [address] Urobilinogen Ql (U) Normal Normal Negative [facility] Comment on above: Order Comment: Speci men Type: URINE SPECIMENOrdering Facility: [facility] Address: [address] [place] [address] Performed By: #### 2 4356-8 ####[facility] LABORATORYCLIA [id number] [address] WBC LM.HPF (Urine sed) [#/Area] 0-5 /HPF Normal 0-5 /HPF [facility] Comment on above: Order Comment: Speci men Type: URINE SPECIMENOrdering Facility: [facility] Address: [address] [place] [address] Performed By: #### 2 4356-8 ####[facility] LABORATORYCLIA [id number] [address] [place] XR ABDOMEN 1V SUPINEon 08-05 XR ABDOMEN 1V SUPINE Normal [facility] XR CHEST 1V FRONTALon 2021 XR CHEST 1V FRONTAL Normal [facility] XR CHEST 1V FRONTAL Normal [facility] XR NECK SOFT TISSUE 2V AP/LA Ton 08-05-2021 XR NECK SOFT TISSUE 2V AP/LAT Normal [facility] XR SKULL 2V AP/LATon 022 XR SKULL 2V AP/LAT Normal [facility] ALLIED HEALTHon 08-04-2021 ALLIED HEALTH Normal [facility] Bacteria Bld Culton 08-05-19 22 Bacteria identified Cx Nom (Bld) CULTURE, BLOOD: No growth 5 days Normal [facility] Comment on above: Performed By: #### 6 00-7 ####[facility] LABORATORYCLIA [id number] [address] [place] Bacteria identified Cx Nom (Bld) CULTURE, BLOOD: No growth 5 days Normal [facility] Comment on above: Performed By: #### 6 00-7 ####[facility] LABORATORYCLIA [id number] [address] [place] CBC W Auto Differential pane l (Bld)on 08-04-2021 Basophils (Bld) [#/Vol] 0.05 10*3/uL Normal <0.11 [facility] Comment on above: Order Comment: Speci men Type: BLOOD SPECIMENOrdering Facility: [facility] Address: [address] [place] [address] Performed By: #### 5 7021-8 ####[facility] LABORATORYCLIA [id number] [address] [place] Basophils/100 WBC (Bld) 0.4 % Normal [facility] Comment on above: Order Comment: Speci men Type: BLOOD SPECIMENOrdering Facility: [facility] Address: [facility] [place] [address] Performed By: #### 5 7021-8 ####[facility] LABORATORYCLIA [id number] [address] [place] Differential cell count method Nom (Bld) Auto Normal [facility] Comment on above: Order Comment: Speci men Type: BLOOD SPECIMENOrdering Facility: [facility] Address: [address] [place] [address] Performed By: #### 5 7021-8 ####[facility] LABORATORYCLIA [id number] [address] [place] Eosinophils (Bld) [#/Vol] 0.21 10*3/uL Normal <0.46 [facility] Comment on above: Order Comment: Speci men Type: BLOOD SPECIMENOrdering Facility: [facility] Address: [address] [place] [address] Performed By: #### 5 7021-8 ####[facility] LABORATORYCLIA [id number] [address] Eosinophils/100 WBC (Bld) 1.7 % Normal [facility] Comment on above: Order Comment: Speci men Type: BLOOD SPECIMENOrdering Facility: [facility] Address: [address] [place] [address] Performed By: #### 5 7021-8 ####[facility] LABORATORYCLIA [id number] [address] [place] Erythrocyte distribution width (RBC) [Ratio] 18.1 % High 11.5-15.0 [facility] Comment on above: Order Comment: Speci men Type: BLOOD SPECIMENOrdering Facility: [facility] Address: [address] [place] [address] Performed By: #### 5 7021-8 ####[facility] LABORATORYCLIA [id number] [address] [place] Hematocrit (Bld) [Volume fraction] 32.0 % Low 39.0-51.0 [facility] Comment on above: Order Comment: Speci men Type: BLOOD SPECIMENOrdering Facility: [facility] Address: [address] [place] [address] Performed By: #### 5 7021-8 ####[facility]ORATORYCLIA [id number] [address] OF [facility] Hemoglobin (Bld) [Mass/Vol] 10.0 g/dL Low 13.0-17.0 [facility] Comment on above: Order Comment: Speci men Type: BLOOD SPECIMENOrdering Facility: [facility] Address: [address] [place] [address] Performed By: #### 5 7021-8 ####[facility] LABORATORYCLIA [id number] [address] IMMATURE GRAN % 0.6 % Normal [facility] Comment on above: Order Comment: Speci men Type: BLOOD SPECIMENOrdering Facility: [facility] Address: [address] [place] [address] Performed By: #### 5 7021-8 ####[facility] LABORATORYCLIA [id number] [address] IMMATURE GRAN ABS 0.08 k/uL Normal <0.10 [facility] Comment on above: Order Comment: Speci men Type: BLOOD SPECIMENOrdering Facility: [facility] Address: [address] [place] [address] Performed By: #### 5 7021-8 ####[facility] LABORATORYCLIA [id number] [address] Lymphocytes (Bld) [#/Vol] 2.55 10*3/uL Normal 1.00-4.00 [facility] Comment on above: Order Comment: Speci men Type: BLOOD SPECIMENOrdering Facility: [facility] Address: [address] [place] [address] Performed By: #### 5 7021-8 ####[facility] LABORATORYCLIA [id number] [address] Lymphocytes/100 WBC (Bld) 20.5 % Normal [facility] Comment on above: Order Comment: Speci men Type: BLOOD SPECIMENOrdering Facility: [facility] Address: [address] [place] [address] Performed By: #### 5 7021-8 ####[facility] LABORATORYCLIA [id number] [address] MCH (RBC) [Entitic mass] 28.9 pg Normal 26.0-34.0 [facility] Comment on above: Order Comment: Speci men Type: BLOOD SPECIMENOrdering Facility: [facility] Address: [address] [place] [address] Performed By: #### 5 7021-8 ####[facility] LABORATORYCLIA [id number] [address] MCHC (RBC) [Mass/Vol] 31.3 g/dL Normal 30.5-36.0 [facility] Comment on above: Order Comment: Speci men Type: BLOOD SPECIMENOrdering Facility: [facility] Address: [address] [place] [address] Performed By: #### 5 7021-8 ####[facility] LABORATORYCLIA [id number] [address] MCV (RBC) [Entitic vol] 92.5 fL Normal 80.0-100.0 [facility] Comment on above: Order Comment: Speci men Type: BLOOD SPECIMENOrdering Facility: [facility] Address: [address] [place] [address] Performed By: #### 5 7021-8 ####[facility] LABORATORYCLIA [id number] [address] Monocytes (Bld) [#/Vol] 0.85 10*3/uL Normal <0.87 [facility] Comment on above: Order Comment: Speci men Type: BLOOD SPECIMENOrdering Facility: [facility] Address: [address] [place] [address] Performed By: #### 5 7021-8 ####[facility] LABORATORYCLIA [id number] [address] Monocytes/100 WBC (Bld) 6.8 % Normal [facility] Comment on above: Order Comment: Speci men Type: BLOOD SPECIMENOrdering Facility: [facility] Address: [address] [place] [address] Performed By: #### 5 7021-8 ####[facility] LABORATORYCLIA [id number] [address] [place] Neutrophils (Bld) [#/Vol] 8.68 10*3/uL High 1.45-7.50 [facility] Comment on above: Order Comment: Speci men Type: BLOOD SPECIMENOrdering Facility: [facility] Address: [address] [place] [address] Performed By: #### 5 7021-8 ####[facility] LABORATORYCLIA [id number] [address] Neutrophils/100 WBC (Bld) 70.0 % Normal [facility] Comment on above: Order Comment: Speci men Type: BLOOD SPECIMENOrdering Facility: [facility] Address: [address] [place] [address] Performed By: #### 5 7021-8 ####[facility] LABORATORYCLIA [id number] [address] Nucleated RBC (Bld) [#/Vol] 10*3/uL Normal <0.01 [facility] Comment on above: Order Comment: Speci men Type: BLOOD SPECIMENOrdering Facility: [facility] Address: [address] [place] [address] Performed By: #### 5 7021-8 ####[facility]ORATORYCLIA [id number] [address] Nucleated RBC/100 WBC (Bld) [Ratio] 0.0 /100 WBC Normal [facility] Comment on above: Order Comment: Speci men Type: BLOOD SPECIMENOrdering Facility: [facility] Address: [address] [place] [address] Performed By: #### 5 7021-8 ####[facility]ORATORYCLIA [id number] [address] Platelet mean volume (Bld) [Entitic vol] 10.0 fL Normal 9.0-12.7 [facility] Comment on above: Order Comment: Speci men Type: BLOOD SPECIMENOrdering Facility: [facility] Address: [address] [place] [address] Performed By: #### 5 7021-8 ####[facility] LABORATORYCLIA [id number] [address] Platelets (Bld) [#/Vol] 393 10*3/uL Normal 150-400 [facility] Comment on above: Order Comment: Speci men Type: BLOOD SPECIMENOrdering Facility: [facility] Address: [address] [place] [address] Performed By: #### 5 7021-8 ####[facility] LABORATORYCLIA [id number] [address] RBC (Bld) [#/Vol] 3.46 10*6/uL Low 4.20-6.00 [facility] Comment on above: Order Comment: Speci men Type: BLOOD SPECIMENOrdering Facility: [facility] Address: [address] [place] [address] Performed By: #### 5 7021-8 ####[facility] LABORATORYCLIA [id number] [address] WBC (Bld) [#/Vol] 12.42 10*3/uL High 3.70-11.00 [facility] Comment on above: Order Comment: Speci men Type: BLOOD SPECIMENOrdering Facility: [facility] Address: [address] [place] [address] Performed By: #### 5 7021-8 ####[facility] LABORATORYCLIA [id number] [address] BRAIN WO IVCONon 08-05-19 CT BRAIN WO IVCON Normal [facility] Lactate (Bld) [Moles/Vol]on 08-04-2021 Lactate [Moles/Vol] 1.4 mmol/L Normal 0.5-2.2 [facility] Comment on above: Order Comment: Speci men Type: BLOOD SPECIMENOrdering Facility: [facility] Address: [address] [place] [address] Performed By: #### 3 2693-4 ####[facility] LABORATORYCLIA [id number] [address] PROCALCITONIN (LAB)on 2021 Procalcitonin [Mass/Vol] 0.08 ng/mL Normal <0.09 [facility] Comment on above: Order Comment: Speci men Type: BLOOD SPECIMENOrdering Facility: [facility] Address: [address] [place] [address] Result Comment: For a guided interpretation of test results, please visit the Change in Procalcitonin Calculator, [email or web address]. Performed By: #### P ROCAL ####[facility] CRAWFORDSVILLEIA [id number] [address] [facility] Prealbumin [Mass/Vol]on 07-07 Prealbumin Nephelometry [Mass/Vol] 35 mg/dL Normal 17-36 [facility] Comment on above: Order Comment: Speci men Type: BLOOD SPECIMENOrdering Facility: [facility] Address: [address] [place] [address] Performed By: #### 1 4338-8 ####[facility] LABORATORYCLIA [id number] [address] [place] SARS-CoV-2 RNA Resp Ql MEGAN+p robeon 08-04-2021 SARS-CoV-2 (COVID-19) RNA MEGAN+probe Ql (Resp) COVID 19 RESULT: SARS-CoV-2 (Agent of COVID-19) Not Detected by RT-PCR or equivalent method. This test has been authorized by FDA under an Emergency Use Authorization (EUA). Normal [facility] Comment on above: Performed By: #### 9 4500-6 ####[facility] LABORATORYCLIA [id number] [address] TYPE AND SCREENon 08-04-2021 ABO O Normal [facility] Comment on above: Order Comment: Speci men Type: BLOOD SPECIMENOrdering Facility: [facility] Address: [address] [place] [address] Performed By: #### T SCR ####[facility] BLOOD BANKCLIA [id number] [address] HISTORICAL AB SCR STATUS Negative Normal [facility] Comment on above: Order Comment: Speci men Type: BLOOD SPECIMENOrdering Facility: [facility] Address: [address] [place] [address] Performed By: #### T SCR ####[facility] BLOOD BANKCLIA [id number] [address] Rh Nom (Bld) Positive Normal [facility] Comment on above: Order Comment: Speci men Type: BLOOD SPECIMENOrdering Facility: [facility] Address: [address] [place] [address] Performed By: #### T SCR ####[facility] BLOOD BANKCLIA [id number] [address] TYPE AND SCREEN EXPIRATION 08/07/2021 23:59 Normal [facility] Comment on above: Order Comment: Speci men Type: BLOOD SPECIMENOrdering Facility: [facility] Address: [address] [place] [address] Performed By: #### T SCR ####[facility] BLOOD BANKCLIA [id number] [address] [place] aPTT PPPon 08-04-2021 aPTT Coag (PPP) [Time] 51.8 s High 23.0-32.4 [facility] Comment on above: Order Comment: Speci men Type: BLOOD SPECIMENOrdering Facility: [facility] Address: [address] [place] [address] Performed By: #### 1 4979-9 ####[facility] LABORATORYCLIA [id number] [place] [address] [place] Basic metabolic 2000 panelon 08-03-2021 Anion gap [Moles/Vol] 9 mmol/L Normal 9-18 [facility] Comment on above: Order Comment: Speci men Type: BLOOD SPECIMENOrdering Facility: [facility] Address: [address] [place] [address] Performed By: #### 2 4321-2, , 2776-05 ####[facility] LABORATORYCLIA [id number] [place] [address] [place] Calcium [Mass/Vol] 9.3 mg/dL Normal 8.5-10.2 [facility] Comment on above: Order Comment: Speci men Type: BLOOD SPECIMENOrdering Facility: [facility] Address: [address] [place] [address] Performed By: #### 2 4321-2, , 2776-05 ####[facility] LABORATORYCLIA [id number] [place] [address] [place] Chloride [Moles/Vol] 97 mmol/L Normal 97-105 [facility] Comment on above: Order Comment: Speci men Type: BLOOD SPECIMENOrdering Facility: [facility] Address: [address] [place] [address] Performed By: #### 2 4321-2, , 2776-05 ####[facility] LABORATORYCLIA [id number] [place] [id number] [place] CO2 [Moles/Vol] 27 mmol/L Normal 22-30 [facility] Comment on above: Order Comment: Speci men Type: BLOOD SPECIMENOrdering Facility: [facility] Address: [address] [place] [address] Performed By: #### 2 4321-2, , 2776- ####[facility] LABORATORYCLIA [id number] [place] [address] [place] Creatinine [Mass/Vol] 0.63 mg/dL Low 0.73-1.22 [facility] Comment on above: Order Comment: Shira feldman Type: BLOOD SPECIMENOrdering Facility: [facility] Address: [address] [id number] Performed By: #### 2 4321-2, 67909-2, 2776-05 ####[facility] LABORATORYCLIA [id number] [place] [address] [place] ESTIMATED GLOMERULAR FILTRATION RATE 103 mL/min/1.73m??? Normal >=60 [facility] Comment on above: Order Comment: Johncara feldman Type: BLOOD SPECIMENOrdering Facility: [facility] Address: [address] [place], [place] [id number] Result Comment: Luzmaria mated Glomerular Filtration Rate [...] Performed By: #### 2 4321-2, , 2776-05 ####[facility] LABORATORYCLIA [id number] [place] [address] [place] Glucose [Mass/Vol] 136 mg/dL High 74-99 [facility] Comment on above: Order Comment: Shira feldman Type: BLOOD SPECIMENOrdering Facility: [facility] Address: [address] Result Comment: The [place] [employer] (ADA) provides guidance for cutoff [...] Standards of Medical Care in Diabetes 2016, [place] [employer]. Diabetes Care. 2016.39(Suppl 1). Performed By: #### 2 4321-2, 51706-7, 2776- ####[facility] LABORATORYCLIA [id number] [place] [address] [place] Potassium [Moles/Vol] 4.1 mmol/L Normal 3.7-5.1 [facility] Comment on above: Order Comment: Speci men Type: BLOOD SPECIMENOrdering Facility: [facility] Address: [address] [place] [address] Performed By: #### 2 4321-2, , 2776-05 ####[facility] LABORATORYCLIA [id number] [address] STATES OF [facility] Sodium [Moles/Vol] 133 mmol/L Low 136-144 [facility] Comment on above: Order Comment: Speci men Type: BLOOD SPECIMENOrdering Facility: [facility] Address: [address] [place] [address] Performed By: #### 2 4321-2, , 27711-04 ####[facility] LABORATORYCLIA [id number] [address] [place] Urea nitrogen [Mass/Vol] 40 mg/dL High 9-24 [facility] Comment on above: Order Comment: Speci men Type: BLOOD SPECIMENOrdering Facility: [facility] Address: [address] [place] [address] Performed By: #### 2 4321-2, , 27711-04 ####[facility] LABORATORYCLIA [id number] [place] [address] [place] CASE MANAGEMon 08-03-2021 CASE MANAGEM Normal [facility] CBC W Auto Differential pane l (Bld)on 08-03-2021 Basophils (Bld) [#/Vol] 0.06 10*3/uL Normal <0.11 [facility] Comment on above: Order Comment: Speci men Type: BLOOD SPECIMENOrdering Facility: [facility] Address: [address] [place] [address] Performed By: #### 5 7021-8 ####[facility]ORATORYCLIA [id number] [address] STATES [facility] Basophils/100 WBC (Bld) 0.5 % Normal [facility] Comment on above: Order Comment: Speci men Type: BLOOD SPECIMENOrdering Facility: [facility] Address: [address] [place] [address] Performed By: #### 5 7021-8 ####[facility] LABORATORYCLIA [id number] [address] [place] Differential cell count method Nom (Bld) Auto Normal [facility] Comment on above: Order Comment: Speci men Type: BLOOD SPECIMENOrdering Facility: [facility] Address: [address] [place] [address] Performed By: #### 5 7021-8 ####[facility] LABORATORYCLIA [id number] [address] [place] Eosinophils (Bld) [#/Vol] 0.23 10*3/uL Normal <0.46 [facility] Comment on above: Order Comment: Speci men Type: BLOOD SPECIMENOrdering Facility: [facility] Address: [address] [place] [address] Performed By: #### 5 7021-8 ####[facility] LABORATORYCLIA [id number] [address] [place] Eosinophils/100 WBC (Bld) 1.8 % Normal [facility] Comment on above: Order Comment: Speci men Type: BLOOD SPECIMENOrdering Facility: [facility] Address: [address] [place] [address] Performed By: #### 5 7021-8 ####[facility]ORATORYCLIA [id number] [address] [place] Erythrocyte distribution width (RBC) [Ratio] 17.6 % High 11.5-15.0 [facility] Comment on above: Order Comment: Speci men Type: BLOOD SPECIMENOrdering Facility: [facility] Address: [address] [place] [address] Performed By: #### 5 7021-8 ####[facility] LABORATORYCLIA [id number] [address] Hematocrit (Bld) [Volume fraction] 30.7 % Low 39.0-51.0 [facility] Comment on above: Order Comment: Speci men Type: BLOOD SPECIMENOrdering Facility: [facility] Address: [address] [place] [address] Performed By: #### 5 7021-8 ####[facility] LABORATORYCLIA [id number] [address] Hemoglobin (Bld) [Mass/Vol] 9.3 g/dL Low 13.0-17.0 [facility] Comment on above: Order Comment: Speci men Type: BLOOD SPECIMENOrdering Facility: [facility] Address: [address] [place] [address] Performed By: #### 5 7021-8 ####[facility] LABORATORYCLIA [id number] [address] IMMATURE GRAN % 0.6 % Normal [facility] Comment on above: Order Comment: Speci men Type: BLOOD SPECIMENOrdering Facility: [facility] Address: [address] [place] [address] Performed By: #### 5 7021-8 ####[facility] LABORATORYCLIA [id number] [address] IMMATURE GRAN ABS 0.08 k/uL Normal <0.10 [facility] Comment on above: Order Comment: Speci men Type: BLOOD SPECIMENOrdering Facility: [facility] Address: [address] [place] [address] Performed By: #### 5 7021-8 ####[facility] LABORATORYCLIA [id number] [address] Lymphocytes (Bld) [#/Vol] 2.45 10*3/uL Normal 1.00-4.00 [facility] [facility] Comment on above: Order Comment: Speci men Type: BLOOD SPECIMENOrdering Facility: [facility] Address: [address] [place] [address] Performed By: #### 5 7021-8 ####[facility] LABORATORYCLIA [id number] [address] Lymphocytes/100 WBC (Bld) 19.7 % Normal [facility] Comment on above: Order Comment: Speci men Type: BLOOD SPECIMENOrdering Facility: [facility] Address: [address] [place] [address] Performed By: #### 5 7021-8 ####[facility] LABORATORYCLIA [id number] [address] STATES OF [facility] MCH (RBC) [Entitic mass] 28.2 pg Normal 26.0-34.0 [facility] Comment on above: Order Comment: Speci men Type: BLOOD SPECIMENOrdering Facility: [facility] Address: [address] [place] [address] Performed By: #### 5 7021-8 ####[facility] LABORATORYCLIA [id number] [address] STATES OF [facility] MCHC (RBC) [Mass/Vol] 30.3 g/dL Low 30.5-36.0 [facility] Comment on above: Order Comment: Speci men Type: BLOOD SPECIMENOrdering Facility: [facility] Address: [address] [place] [address] Performed By: #### 5 7021-8 ####[facility] LABORATORYCLIA [id number] [address] STATES [facility] MCV (RBC) [Entitic vol] 93.0 fL Normal 80.0-100.0 [facility] Comment on above: Order Comment: Speci men Type: BLOOD SPECIMENOrdering Facility: [facility] Address: [address] [place] [address] Performed By: #### 5 7021-8 ####[facility]ORATORYCLIA [id number] [place] [address] [place] Monocytes (Bld) [#/Vol] 0.72 10*3/uL Normal <0.87 [facility] Comment on above: Order Comment: Speci men Type: BLOOD SPECIMENOrdering Facility: [facility] Address: [address] [place] [address] Performed By: #### 5 7021-8 ####[facility]ORATORYCLIA [id number] [address] [place] Monocytes/100 WBC (Bld) 5.8 % Normal [facility] Comment on above: Order Comment: Speci men Type: BLOOD SPECIMENOrdering Facility: [facility] Address: [address] [place] [address] Performed By: #### 5 7021-8 ####[facility] LABORATORYCLIA [id number] [address] [place] Neutrophils (Bld) [#/Vol] 8.92 10*3/uL High 1.45-7.50 [facility] Comment on above: Order Comment: Speci men Type: BLOOD SPECIMENOrdering Facility: [facility] Address: [address] [place] [address] Performed By: #### 5 7021-8 ####[facility]ORATORYCLIA [id number] [address] [place] Neutrophils/100 WBC (Bld) 71.6 % Normal [facility] Comment on above: Order Comment: Speci men Type: BLOOD SPECIMENOrdering Facility: [facility] Address: [address] [place] [address] Performed By: #### 5 7021-8 ####[facility] LABORATORYCLIA [id number] [address] [place] Nucleated RBC (Bld) [#/Vol] 10*3/uL Normal <0.01 [facility] Comment on above: Order Comment: Speci men Type: BLOOD SPECIMENOrdering Facility: [facility] Address: [address] [place] [address] Performed By: #### 5 7021-8 ####[facility] LABORATORYCLIA [id number] [address] [place] Nucleated RBC/100 WBC (Bld) [Ratio] 0.0 /100 WBC Normal [facility] Comment on above: Order Comment: Speci men Type: BLOOD SPECIMENOrdering Facility: [facility] Address: [address] [place] [address] Performed By: #### 5 7021-8 ####[facility] LABORATORYCLIA [id number] [place] [address] [place] Platelet mean volume (Bld) [Entitic vol] 10.2 fL Normal 9.0-12.7 [facility] Comment on above: Order Comment: Speci men Type: BLOOD SPECIMENOrdering Facility: [facility] Address: [address] [place] [address] Performed By: #### 5 7021-8 ####[facility] LABORATORYCLIA [id number] [address] [place] Platelets (Bld) [#/Vol] 352 10*3/uL Normal 150-400 [facility] Comment on above: Order Comment: Speci men Type: BLOOD SPECIMENOrdering Facility: [facility] Address: [address] [place] [address] Performed By: #### 5 7021-8 ####[facility] LABORATORYCLIA [id number] [address] [place] RBC (Bld) [#/Vol] 3.30 10*6/uL Low 4.20-6.00 [facility] Comment on above: Order Comment: Speci men Type: BLOOD SPECIMENOrdering Facility: [facility] Address: [address] [place] [address] Performed By: #### 5 7021-8 ####[facility] LABORATORYCLIA [id number] [address] [place] WBC (Bld) [#/Vol] 12.46 10*3/uL High 3.70-11.00 [facility] Comment on above: Order Comment: Speci men Type: BLOOD SPECIMENOrdering Facility: [facility] Address: [address] [place] [address] Performed By: #### 5 7021-8 ####[facility] LABORATORYCLIA [id number] [address] [place] CONSULT PROGon 08-03-2021 CONSULT PROG Normal [facility] Magnesium SerPl-ncon 08-03 Magnesium [Mass/Vol] 2.2 mg/dL Normal 1.7-2.3 [facility] Comment on above: Order Comment: Speci men Type: BLOOD SPECIMENOrdering Facility: [facility] Address: [address] [place] [address] Performed By: #### 2 4321-2, , 27711-04 ####[facility] LABORATORYCLIA [id number] [address] [place] NURSING PROGon 08-03-2021 NURSING PROG Normal [facility] Phosphate SerPl-mCncon 08-03 Phosphate [Mass/Vol] 4.2 mg/dL Normal 2.7-4.8 [facility] Comment on above: Order Comment: Speci men Type: BLOOD SPECIMENOrdering Facility: [facility] Address: [address] [place] [address] Performed By: #### 2 4321-2, 48573-3, 2777-1 ####[facility] LABORATORYCLIA [id number] [address] [place] aPTT PPPon 08-03-2021 aPTT Coag (PPP) [Time] 50.0 s High 23.0-32.4 [facility] Comment on above: Order Comment: Speci men Type: BLOOD SPECIMENOrdering Facility: [facility] Address: [address] [place] [address] Performed By: #### 1 4979-9 ####[facility]ORATORYCLIA [id number] [place] [address] [place] CBC W Auto Differential pane l (Bld)on 08-02-2021 Basophils (Bld) [#/Vol] 10*3/uL Normal <0.11 [facility] Comment on above: Order Comment: Speci men Type: BLOOD SPECIMENOrdering Facility: [facility] Address: [address] [place] [address] Performed By: #### 5 7021-8 ####[facility] LABORATORYCLIA [id number] [address] STATES [facility] Basophils/100 WBC (Bld) 0.2 % Normal [facility] Comment on above: Order Comment: Speci men Type: BLOOD SPECIMENOrdering Facility: [facility] Address: [address] [place] [address] Performed By: #### 5 7021-8 ####[facility] LABORATORYCLIA [id number] [address] Differential cell count method Nom (Bld) Auto Normal [facility] Comment on above: Order Comment: Speci men Type: BLOOD SPECIMENOrdering Facility: [facility] Address: [address] [place] [address] Performed By: #### 5 7021-8 ####[facility] LABORATORYCLIA [id number] [place] [address] [place] Eosinophils (Bld) [#/Vol] 10*3/uL Normal <0.46 [facility] Comment on above: Order Comment: Speci men Type: BLOOD SPECIMENOrdering Facility: [facility] Address: [address] [place] [address] Performed By: #### 5 7021-8 ####[facility]ORATORYCLIA [id number] [address] Eosinophils/100 WBC (Bld) 0.0 % Normal [facility] Comment on above: Order Comment: Speci men Type: BLOOD SPECIMENOrdering Facility: [facility] Address: [address] [address] Performed By: #### 5 7021-8 ####[facility] LABORATORYCLIA [id number] [address] Erythrocyte distribution width (RBC) [Ratio] 17.3 % High 11.5-15.0 [facility] Comment on above: Order Comment: Speci men Type: BLOOD SPECIMENOrdering Facility: [facility] Address: [address] [place] [address] Performed By: #### 5 7021-8 ####[facility]ORATORYCLIA [id number] [address] Hematocrit (Bld) [Volume fraction] 30.8 % Low 39.0-51.0 [facility] Comment on above: Order Comment: Speci men Type: BLOOD SPECIMENOrdering Facility: [facility] Address: [address] [place] [address] Performed By: #### 5 7021-8 ####[facility] LABORATORYCLIA [id number] [address] Hemoglobin (Bld) [Mass/Vol] 9.7 g/dL Low 13.0-17.0 [facility] Comment on above: Order Comment: Speci men Type: BLOOD SPECIMENOrdering Facility: [facility] Address: [address] [place] [address] Performed By: #### 5 7021-8 ####[facility]ORATORYCLIA [id number] [address] IMMATURE GRAN % 0.5 % Normal [facility] Comment on above: Order Comment: Speci men Type: BLOOD SPECIMENOrdering Facility: [facility] Address: [address] [place] [address] Performed By: #### 5 7021-8 ####[facility]ORATORYCLIA [id number] [address] IMMATURE GRAN ABS 0.07 k/uL Normal <0.10 [facility] Comment on above: Order Comment: Speci men Type: BLOOD SPECIMENOrdering Facility: [facility] Address: [address] [place] [address] Performed By: #### 5 7021-8 ####[facility] LABORATORYCLIA [id number] [address] OF [facility] Lymphocytes (Bld) [#/Vol] 1.60 10*3/uL Normal 1.00-4.00 [facility] Comment on above: Order Comment: Speci men Type: BLOOD SPECIMENOrdering Facility: [facility] Address: [address] [place] [address] Performed By: #### 5 7021-8 ####[facility]ORATORYCLIA [id number] [address] Lymphocytes/100 WBC (Bld) 12.1 % Normal [facility] Comment on above: Order Comment: Speci men Type: BLOOD SPECIMENOrdering Facility: [facility] Address: [address] [place] [address] Performed By: #### 5 7021-8 ####[facility] LABORATORYCLIA [id number] [address] [place] MCH (RBC) [Entitic mass] 28.6 pg Normal 26.0-34.0 [facility] Comment on above: Order Comment: Speci men Type: BLOOD SPECIMENOrdering Facility: [facility] Address: [address] [place] [address] Performed By: #### 5 7021-8 ####[facility] LABORATORYCLIA [id number] [address] [place] MCHC (RBC) [Mass/Vol] 31.5 g/dL Normal 30.5-36.0 [facility] Comment on above: Order Comment: Speci men Type: BLOOD SPECIMENOrdering Facility: [facility] Address: [address] [place] [address] Performed By: #### 5 7021-8 ####[facility]ORATORYCLIA [id number] [address] [place] MCV (RBC) [Entitic vol] 90.9 fL Normal 80.0-100.0 [facility] Comment on above: Order Comment: Speci men Type: BLOOD SPECIMENOrdering Facility: [facility] Address: [address] [place] [address] Performed By: #### 5 7021-8 ####[facility]ORATORYCLIA [id number] [place] [address] [place] Monocytes (Bld) [#/Vol] 0.39 10*3/uL Normal <0.87 [facility] Comment on above: Order Comment: Speci men Type: BLOOD SPECIMENOrdering Facility: [facility] Address: [address] [place] [address] Performed By: #### 5 7021-8 ####[facility]ORATORYCLIA [id number] [address] Monocytes/100 WBC (Bld) 3.0 % Normal [facility] Comment on above: Order Comment: Speci men Type: BLOOD SPECIMENOrdering Facility: [facility] Address: [address] [place] [address] Performed By: #### 5 7021-8 ####[facility] LABORATORYCLIA [id number] [address] [place] Neutrophils (Bld) [#/Vol] 11.09 10*3/uL High 1.45-7.50 [facility] Comment on above: Order Comment: Speci men Type: BLOOD SPECIMENOrdering Facility: [facility] Address: [address] [address] Performed By: #### 5 7021-8 ####[facility] LABORATORYCLIA [id number] [address] [place] Neutrophils/100 WBC (Bld) 84.2 % Normal [facility] Comment on above: Order Comment: Speci men Type: BLOOD SPECIMENOrdering Facility: [facility] Address: [address] [place] [address] Performed By: #### 5 7021-8 ####[facility]ORATORYCLIA [id number] [address] Nucleated RBC (Bld) [#/Vol] 10*3/uL Normal <0.01 [facility] Comment on above: Order Comment: Speci men Type: BLOOD SPECIMENOrdering Facility: [facility] Address: [address] [place] [address] Performed By: #### 5 7021-8 ####[facility]ORATORYCLIA [id number] [address] [place] Nucleated RBC/100 WBC (Bld) [Ratio] 0.0 /100 WBC Normal [facility] Comment on above: Order Comment: Speci men Type: BLOOD SPECIMENOrdering Facility: [facility] Address: [address] [place] [address] Performed By: #### 5 7021-8 ####[facility]ORATORYCLIA [id number] [address] OF [facility] Platelet mean volume (Bld) [Entitic vol] 10.0 fL Normal 9.0-12.7 [facility] Comment on above: Order Comment: Speci men Type: BLOOD SPECIMENOrdering Facility: [facility] Address: [address] [place] [address] Performed By: #### 5 7021-8 ####[facility]ORATORYCLIA [id number] [address] [place] Platelets (Bld) [#/Vol] 358 10*3/uL Normal 150-400 [facility] Comment on above: Order Comment: Speci men Type: BLOOD SPECIMENOrdering Facility: [facility] Address: [address] [place] [address] Performed By: #### 5 7021-8 ####[facility]ORATORYCLIA [id number] [address] [place] RBC (Bld) [#/Vol] 3.39 10*6/uL Low 4.20-6.00 [facility] Comment on above: Order Comment: Speci men Type: BLOOD SPECIMENOrdering Facility: [facility] Address: [address] [place] [address] Performed By: #### 5 7021-8 ####[facility]ORATORYCLIA [id number] [address] [place] WBC (Bld) [#/Vol] 13.17 10*3/uL High 3.70-11.00 [facility] Comment on above: Order Comment: Speci men Type: BLOOD SPECIMENOrdering Facility: [facility] Address: [address] [place] [address] Performed By: #### 5 7021-8 ####[facility]ORATORYCLIA [id number] [address] OF [facility] NURSING PROGon 08-02-2021 NURSING PROG Normal [facility] THERAPY NTon 08-02-2021 THERAPY NT Normal [facility] aPTT PPPon 08-02-2021 aPTT Coag (PPP) [Time] 54.9 s High 23.0-32.4 [facility] Comment on above: Order Comment: Speci men Type: BLOOD SPECIMENOrdering Facility: [facility] Address: [address] [place] [address] Performed By: #### 1 4979-9 ####[facility]ORATORYCLIA [id number] [address] [place] ALLIED HEALTHon 08-01-2021 ALLIED HEALTH Normal [facility] ALLIED HEALTH Normal [facility] Basic metabolic 2000 panelon 08-01-2021 Anion gap [Moles/Vol] 12 mmol/L Normal 9-18 [facility] Comment on above: Order Comment: Speci men Type: BLOOD SPECIMENOrdering Facility: [facility] Address: [address] [place] [address] Performed By: #### 2 4321-2, 34917-8, 07393-3, 2777-1 ####[facility]ORATORYCLIA [id number] [place] [address] [place] Calcium [Mass/Vol] 9.1 mg/dL Normal 8.5-10.2 [facility] Comment on above: Order Comment: Speci men Type: BLOOD SPECIMENOrdering Facility: [facility] Address: [address] [place] [address] Performed By: #### 2 4321-2, 91758-2, 90634-1, 2777-1 ####[facility]ORATORYCLIA [id number] [place] [address] [place] Chloride [Moles/Vol] 96 mmol/L Low 97-105 [facility] Comment on above: Order Comment: Speci men Type: BLOOD SPECIMENOrdering Facility: [facility] Address: [address] [place] [address] Performed By: #### 2 4321-2, 20878-8, 39951-8, 2777-1 ####[facility]ORATORYCLIA [id number] [address] [place] CO2 [Moles/Vol] 27 mmol/L Normal 22-30 [facility] Comment on above: Order Comment: Speci men Type: BLOOD SPECIMENOrdering Facility: [facility] Address: [address] [place] [address] Performed By: #### 2 4321-2, 83050-3, 87596-6, 2777-1 ####[facility]ORATORYCLIA [id number] [place] [address] [place] Creatinine [Mass/Vol] 0.64 mg/dL Low 0.73-1.22 [facility] Comment on above: Order Comment: Speci men Type: BLOOD SPECIMENOrdering Facility: [facility] Address: [address] [place] [address] Performed By: #### 2 4321-2, 37634-9, 86063-8, 2777-1 ####[facility] LABORATORYCLIA [id number] [address] [place] ESTIMATED GLOMERULAR FILTRATION RATE 102 mL/min/1.73m??? Normal >=60 [facility] Comment on above: Order Comment: Shira feldman Type: BLOOD SPECIMENOrdering Facility: [facility] Address: [address] [place], [place] [id number] Result Comment: Luzmaria mated Glomerular Filtration Rate [...] actual GFR. Performed By: #### 2 4321-2, 19011-8, 09312-4, 2777-1 ####[facility]IA [id number] [place] [address] [place] Glucose [Mass/Vol] 122 mg/dL High 74-99 [facility] Comment on above: Order Comment: Shira feldman Type: BLOOD SPECIMENOrdering Facility: [facility] Address: [address] [place], [place] [id number] Result Comment: The [place] [employer] (ADA) provides guidance for cutoff [...] Standards of Medical Care in Diabetes 2016, [place] [employer]. Diabetes Care. 2016.39(Suppl 1). Performed By: #### 2 4321-2, 43839-0, 41935-1, 2777-1 ####[facility] LABORATORYCLIA [id number] [place] [address] [place] Potassium [Moles/Vol] 4.2 mmol/L Normal 3.7-5.1 [facility] Comment on above: Order Comment: Speci men Type: BLOOD SPECIMENOrdering Facility: [facility] Address: [address] [place] [address] Performed By: #### 2 4321-2, 56698-0, 95674-4, 2777-1 ####[facility] LABORATORYCLIA [id number] [place] [address] [place] Sodium [Moles/Vol] 135 mmol/L Low 136-144 [facility] Comment on above: Order Comment: Speci men Type: BLOOD SPECIMENOrdering Facility: [facility] Address: [address] [place] [address] Performed By: #### 2 4321-2, 41471-8, 71607-7, 2777- ####[facility] LABORATORYCLIA [id number] [place] [address] [place] Urea nitrogen [Mass/Vol] 36 mg/dL High 9-24 [facility] Comment on above: Order Comment: Speci men Type: BLOOD SPECIMENOrdering Facility: [facility] Address: [address] [place] [address] Performed By: #### 2 4321-2, 07061-8, 39510-7, 2777- ####[facility] LABORATORYCLIA [id number] [address] [place] CASE MANAGEMon 08-01-2021 CASE MANAGEM Normal [facility] CBC W Auto Differential pane l (Bld)on 08-01-2021 Basophils (Bld) [#/Vol] 0.04 10*3/uL Normal <0.11 [facility] Comment on above: Order Comment: Speci men Type: BLOOD SPECIMENOrdering Facility: [facility] Address: [address] [place] [address] Performed By: #### 5 7021-8 ####[facility] LABORATORYCLIA [id number] [address] [place] Basophils/100 WBC (Bld) 0.3 % Normal [facility] Comment on above: Order Comment: Speci men Type: BLOOD SPECIMENOrdering Facility: [facility] Address: [address] [place] [address] Performed By: #### 5 7021-8 ####[facility] LABORATORYCLIA [id number] [address] Differential cell count method Nom (Bld) Auto Normal [facility] Comment on above: Order Comment: Speci men Type: BLOOD SPECIMENOrdering Facility: [facility] Address: [address] [place] [address] Performed By: #### 5 7021-8 ####[facility] LABORATORYCLIA [id number] [address] Eosinophils (Bld) [#/Vol] 0.37 10*3/uL Normal <0.46 [facility] Comment on above: Order Comment: Speci men Type: BLOOD SPECIMENOrdering Facility: [facility] Address: [address] [place] [address] Performed By: #### 5 7021-8 ####[facility] LABORATORYCLIA [id number] [address] Eosinophils/100 WBC (Bld) 3.1 % Normal [facility] Comment on above: Order Comment: Speci men Type: BLOOD SPECIMENOrdering Facility: [facility] Address: [address] [place] [address] Performed By: #### 5 7021-8 ####[facility] LABORATORYCLIA [id number] [address] Erythrocyte distribution width (RBC) [Ratio] 17.5 % High 11.5-15.0 [facility] Comment on above: Order Comment: Speci men Type: BLOOD SPECIMENOrdering Facility: [facility] Address: [address] [place] [address] Performed By: #### 5 7021-8 ####[facility] LABORATORYCLIA [id number] [address] [place] Hematocrit (Bld) [Volume fraction] 30.1 % Low 39.0-51.0 [facility] Comment on above: Order Comment: Speci men Type: BLOOD SPECIMENOrdering Facility: [facility] Address: [address] [place] [address] Performed By: #### 5 7021-8 ####[facility] LABORATORYCLIA [id number] [address] [place] OF [facility] Hemoglobin (Bld) [Mass/Vol] 9.1 g/dL Low 13.0-17.0 [facility] Comment on above: Order Comment: Speci men Type: BLOOD SPECIMENOrdering Facility: [facility] Address: [address] [place] [address] Performed By: #### 5 7021-8 ####[facility] LABORATORYCLIA [id number] [address] OF [facility] IMMATURE GRAN % 0.6 % Normal [facility] Comment on above: Order Comment: Speci men Type: BLOOD SPECIMENOrdering Facility: [facility] Address: [address] [place] [address] Performed By: #### 5 7021-8 ####[facility] LABORATORYCLIA [id number] [address] IMMATURE GRAN ABS 0.07 k/uL Normal <0.10 [facility] Comment on above: Order Comment: Speci men Type: BLOOD SPECIMENOrdering Facility: [facility] Address: [address] [place] [address] Performed By: #### 5 7021-8 ####[facility] LABORATORYCLIA [id number] [address] [place] Lymphocytes (Bld) [#/Vol] 2.05 10*3/uL Normal 1.00-4.00 [facility] Comment on above: Order Comment: Speci men Type: BLOOD SPECIMENOrdering Facility: [facility] Address: [address] [place] [address] Performed By: #### 5 7021-8 ####[facility] LABORATORYCLIA [id number] [address] Lymphocytes/100 WBC (Bld) 17.1 % Normal [facility] Comment on above: Order Comment: Speci men Type: BLOOD SPECIMENOrdering Facility: [facility] Address: [address] [place] [address] Performed By: #### 5 7021-8 ####[facility] LABORATORYCLIA [id number] [address] MCH (RBC) [Entitic mass] 27.7 pg Normal 26.0-34.0 [facility] Comment on above: Order Comment: Speci men Type: BLOOD SPECIMENOrdering Facility: [facility] Address: [address] [place] [address] Performed By: #### 5 7021-8 ####[facility] LABORATORYCLIA [id number] [address] MCHC (RBC) [Mass/Vol] 30.2 g/dL Low 30.5-36.0 [facility] Comment on above: Order Comment: Speci men Type: BLOOD SPECIMENOrdering Facility: [facility] Address: [address] [place] [address] Performed By: #### 5 7021-8 ####[facility] LABORATORYCLIA [id number] [address] MCV (RBC) [Entitic vol] 91.5 fL Normal 80.0-100.0 [facility] Comment on above: Order Comment: Speci men Type: BLOOD SPECIMENOrdering Facility: [facility] Address: [address] [place] [address] Performed By: #### 5 7021-8 ####[facility] LABORATORYCLIA [id number] [address] Monocytes (Bld) [#/Vol] 0.53 10*3/uL Normal <0.87 [facility] Comment on above: Order Comment: Speci men Type: BLOOD SPECIMENOrdering Facility: [facility] Address: [address] [address] Performed By: #### 5 7021-8 ####[facility]ORATORYCLIA [id number] [address] [place] Monocytes/100 WBC (Bld) 4.4 % Normal [facility] Comment on above: Order Comment: Speci men Type: BLOOD SPECIMENOrdering Facility: [facility] Address: [address] [place] [address] Performed By: #### 5 7021-8 ####[facility] LABORATORYCLIA [id number] [place] [address] [place] Neutrophils (Bld) [#/Vol] 8.91 10*3/uL High 1.45-7.50 [facility] Comment on above: Order Comment: Speci men Type: BLOOD SPECIMENOrdering Facility: [facility] Address: [address] [place] [address] Performed By: #### 5 7021-8 ####[facility] LABORATORYCLIA [id number] [address] [place] Neutrophils/100 WBC (Bld) 74.5 % Normal [facility] Comment on above: Order Comment: Speci men Type: BLOOD SPECIMENOrdering Facility: [facility] Address: [address] [place] [address] Performed By: #### 5 7021-8 ####[facility] LABORATORYCLIA [id number] [place] [address] [place] Nucleated RBC (Bld) [#/Vol] 10*3/uL Normal <0.01 [facility] Comment on above: Order Comment: Speci men Type: BLOOD SPECIMENOrdering Facility: [facility] Address: [address] [place] [address] Performed By: #### 5 7021-8 ####[facility] LABORATORYCLIA [id number] [place] [address] [place] Nucleated RBC/100 WBC (Bld) [Ratio] 0.0 /100 WBC Normal [facility] Comment on above: Order Comment: Speci men Type: BLOOD SPECIMENOrdering Facility: [facility] Address: [address] [place], [place] [address] Performed By: #### 5 7021-8 ####[facility] LABORATORYCLIA [id number] [address] [place] Platelet mean volume (Bld) [Entitic vol] 10.4 fL Normal 9.0-12.7 [facility] Comment on above: Order Comment: Speci men Type: BLOOD SPECIMENOrdering Facility: [facility] Address: [address] [place], [place] [address] Performed By: #### 5 7021-8 ####[facility] LABORATORYCLIA [id number] [address] [place] Platelets (Bld) [#/Vol] 319 10*3/uL Normal 150-400 [facility] Comment on above: Order Comment: Speci men Type: BLOOD SPECIMENOrdering Facility: [facility] Address: [address] [place], [place] [address] Performed By: #### 5 7021-8 ####[facility] LABORATORYCLIA [id number] [address] [place] RBC (Bld) [#/Vol] 3.29 10*6/uL Low 4.20-6.00 [facility] Comment on above: Order Comment: Speci men Type: BLOOD SPECIMENOrdering Facility: [facility] Address: [address] [place], [place] [address] Performed By: #### 5 7021-8 ####[facility] LABORATORYCLIA [id number] [address] [place] WBC (Bld) [#/Vol] 11.97 10*3/uL High 3.70-11.00 [facility] Comment on above: Order Comment: Speci men Type: BLOOD SPECIMENOrdering Facility: [facility] Address: [address] [place], [place] [address] Performed By: #### 5 7021-8 ####[facility] LABORATORYCLIA [id number] [place] [id number] [place] CT BRAIN WO IVCONon 08-02-19 CT BRAIN WO IVCON Normal [facility] Magnesium SerPl-mCncon 08-01 Magnesium [Mass/Vol] 2.4 mg/dL High 1.7-2.3 [facility] Comment on above: Order Comment: Speci men Type: BLOOD SPECIMENOrdering Facility: [facility] Address: [address] [place] [address] Performed By: #### 2 4321-2, 15521-9, 82708-6, 2777-1 ####[facility] LABORATORYCLIA [id number] [address] [facility] NURSING PROGon 08-01-2021 NURSING PROG Normal [facility] NUTRITIONon 08-01-2021 NUTRITION Normal [facility] Phosphate SerPl-mCncon 08-01 Phosphate [Mass/Vol] 3.3 mg/dL Normal 2.7-4.8 [facility] Comment on above: Order Comment: Speci men Type: BLOOD SPECIMENOrdering Facility: [facility] Address: [address] [place] [address] Performed By: #### 2 4321-2, 35354-8, 88461-8, 2777-1 ####[facility] LABORATORYCLIA [id number] [address] [place] Prealbumin [Mass/Vol]on 07-06 Prealbumin Nephelometry [Mass/Vol] 30 mg/dL Normal 17-36 [facility] Comment on above: Order Comment: Speci men Type: BLOOD SPECIMENOrdering Facility: [facility] Address: [address] [place] [address] Performed By: #### 2 4321-2, 62972-8, 06114-6, 2777-1 ####[facility] LABORATORYCLIA [id number] [address] [place] THERAPY NTon 08-01-2021 THERAPY NT Normal [facility] THERAPY NT Normal [facility] TYPE AND SCREENon 08-01-2021 ABO O Normal [facility] Comment on above: Order Comment: Speci men Type: BLOOD SPECIMENOrdering Facility: [facility] Address: [address] [place] [address] Performed By: #### T SCR ####[facility] BLOOD BANKCLIA [id number] [address] HISTORICAL AB SCR STATUS Negative Normal [facility] Comment on above: Order Comment: Speci men Type: BLOOD SPECIMENOrdering Facility: [facility] Address: [address] [place] [address] Performed By: #### T SCR ####[facility] BLOOD BANKCLIA [id number] [address] [place] Rh Nom (Bld) Positive Normal [facility] Comment on above: Order Comment: Speci men Type: BLOOD SPECIMENOrdering Facility: [facility] Address: [address] [place] [address] Performed By: #### T SCR ####[facility] BLOOD BANKCLIA [id number] [address] [facility] TYPE AND SCREEN EXPIRATION 08/04/2021 23:59 Normal [facility] Comment on above: Order Comment: Speci men Type: BLOOD SPECIMENOrdering Facility: [facility] Address: [address] [place] [address] Performed By: #### T SCR ####[facility] BLOOD BANKCLIA [id number] [address] [place] XR CHEST 1V FRONTALon 2021 XR CHEST 1V FRONTAL Normal [facility] aPTT PPPon 08-01-2021 aPTT Coag (PPP) [Time] 50.9 s High 23.0-32.4 [facility] Comment on above: Order Comment: Speci men Type: BLOOD SPECIMENOrdering Facility: [facility] Address: [address] [place] [address] Performed By: #### 1 4979-9 ####[facility] LABORATORYCLIA [id number] [address] STATES [facility] CBC W Auto Differential pane l (Bld)on 07-31-2021 Basophils (Bld) [#/Vol] 0.05 10*3/uL Normal <0.11 [facility] Comment on above: Order Comment: Speci men Type: BLOOD SPECIMENOrdering Facility: [facility] Address: [address] [place] [address] Performed By: #### 5 7021-8 ####[facility] LABORATORYCLIA [id number] [address] Basophils/100 WBC (Bld) 0.4 % Normal [facility] Comment on above: Order Comment: Speci men Type: BLOOD SPECIMENOrdering Facility: [facility] Address: [address] [place] [address] Performed By: #### 5 7021-8 ####[facility] LABORATORYCLIA [id number] [address] Differential cell count method Nom (Bld) Auto Normal [facility] Comment on above: Order Comment: Speci men Type: BLOOD SPECIMENOrdering Facility: [facility] Address: [address] [place] [address] Performed By: #### 5 7021-8 ####[facility] LABORATORYCLIA [id number] [address] [place] Eosinophils (Bld) [#/Vol] 0.51 10*3/uL High <0.46 [facility] Comment on above: Order Comment: Speci men Type: BLOOD SPECIMENOrdering Facility: [facility] Address: [address] [place] [address] Performed By: #### 5 7021-8 ####[facility] LABORATORYCLIA [id number] [address] Eosinophils/100 WBC (Bld) 4.5 % Normal [facility] Comment on above: Order Comment: Speci men Type: BLOOD SPECIMENOrdering Facility: [facility] Address: [address] [place] [address] Performed By: #### 5 7021-8 ####[facility] LABORATORYCLIA [id number] [address] Erythrocyte distribution width (RBC) [Ratio] 17.5 % High 11.5-15.0 [facility] Comment on above: Order Comment: Speci men Type: BLOOD SPECIMENOrdering Facility: [facility] Address: [address] [place] [address] Performed By: #### 5 7021-8 ####[facility] LABORATORYCLIA [id number] [address] Hematocrit (Bld) [Volume fraction] 30.4 % Low 39.0-51.0 [facility] Comment on above: Order Comment: Speci men Type: BLOOD SPECIMENOrdering Facility: [facility] Address: [address] [place] [address] Performed By: #### 5 7021-8 ####[facility] LABORATORYCLIA [id number] [address] Hemoglobin (Bld) [Mass/Vol] 9.2 g/dL Low 13.0-17.0 [facility] Comment on above: Order Comment: Speci men Type: BLOOD SPECIMENOrdering Facility: [facility] Address: [address] [place] [address] Performed By: #### 5 7021-8 ####[facility] LABORATORYCLIA [id number] [address] IMMATURE GRAN % 0.5 % Normal [facility] Comment on above: Order Comment: Speci men Type: BLOOD SPECIMENOrdering Facility: [facility] Address: [address] [place] [address] Performed By: #### 5 7021-8 ####[facility] LABORATORYCLIA [id number] [address] IMMATURE GRAN ABS 0.06 k/uL Normal <0.10 [facility] Comment on above: Order Comment: Speci men Type: BLOOD SPECIMENOrdering Facility: [facility] Address: [address] [place] [address] Performed By: #### 5 7021-8 ####[facility] LABORATORYCLIA [id number] [address] Lymphocytes (Bld) [#/Vol] 1.99 10*3/uL Normal 1.00-4.00 [facility] Comment on above: Order Comment: Speci men Type: BLOOD SPECIMENOrdering Facility: [facility] Address: [address] [place] [address] Performed By: #### 5 7021-8 ####[facility] LABORATORYCLIA [id number] [address] Lymphocytes/100 WBC (Bld) 17.6 % Normal [facility] Comment on above: Order Comment: Speci men Type: BLOOD SPECIMENOrdering Facility: [facility] Address: [address] [place] [address] Performed By: #### 5 7021-8 ####[facility] LABORATORYCLIA [id number] [address] MCH (RBC) [Entitic mass] 28.4 pg Normal 26.0-34.0 [facility] Comment on above: Order Comment: Speci men Type: BLOOD SPECIMENOrdering Facility: [facility] Address: [address] [place] [address] Performed By: #### 5 7021-8 ####[facility] LABORATORYCLIA [id number] [address] MCHC (RBC) [Mass/Vol] 30.3 g/dL Low 30.5-36.0 [facility] Comment on above: Order Comment: Speci men Type: BLOOD SPECIMENOrdering Facility: [facility] Address: [address] [place] [address] Performed By: #### 5 7021-8 ####[facility]ORATORYCLIA [id number] [address] [place] MCV (RBC) [Entitic vol] 93.8 fL Normal 80.0-100.0 [facility] Comment on above: Order Comment: Speci men Type: BLOOD SPECIMENOrdering Facility: [facility] Address: [address] [place] [address] Performed By: #### 5 7021-8 ####[facility] LABORATORYCLIA [id number] [address] [place] Monocytes (Bld) [#/Vol] 0.57 10*3/uL Normal <0.87 [facility] Comment on above: Order Comment: Speci men Type: BLOOD SPECIMENOrdering Facility: [facility] Address: [address] [place] [address] Performed By: #### 5 7021-8 ####[facility] LABORATORYCLIA [id number] [address] Monocytes/100 WBC (Bld) 5.0 % Normal [facility] Comment on above: Order Comment: Speci men Type: BLOOD SPECIMENOrdering Facility: [facility] Address: [address] [place] [address] Performed By: #### 5 7021-8 ####[facility] LABORATORYCLIA [id number] [address] [place] Neutrophils (Bld) [#/Vol] 8.12 10*3/uL High 1.45-7.50 [facility] Comment on above: Order Comment: Speci men Type: BLOOD SPECIMENOrdering Facility: [facility] Address: [address] [place] [address] Performed By: #### 5 7021-8 ####[facility] LABORATORYCLIA [id number] [address] [place] Neutrophils/100 WBC (Bld) 72.0 % Normal [facility] Comment on above: Order Comment: Speci men Type: BLOOD SPECIMENOrdering Facility: [facility] Address: [address] Performed By: #### 5 7021-8 ####[facility] LABORATORYCLIA [id number] [address] Nucleated RBC (Bld) [#/Vol] 10*3/uL Normal <0.01 [facility] Comment on above: Order Comment: Speci men Type: BLOOD SPECIMENOrdering Facility: [facility] Address: [address] Performed By: #### 5 7021-8 ####[facility] LABORATORYCLIA [id number] [address] Nucleated RBC/100 WBC (Bld) [Ratio] 0.0 /100 WBC Normal [facility] Comment on above: Order Comment: Speci men Type: BLOOD SPECIMENOrdering Facility: [facility] Address: [address] [place], [place] [address] Performed By: #### 5 7021-8 ####[facility] LABORATORYCLIA [id number] [address] [place] [facility] Platelet mean volume (Bld) [Entitic vol] 10.9 fL Normal 9.0-12.7 [facility] Comment on above: Order Comment: Speci men Type: BLOOD SPECIMENOrdering Facility: [facility] Address: [address] Performed By: #### 5 7021-8 ####[facility] LABORATORYCLIA [id number] [address] [place] [facility] Platelets (Bld) [#/Vol] 303 10*3/uL Normal 150-400 [facility] Comment on above: Order Comment: Speci men Type: BLOOD SPECIMENOrdering Facility: [facility] Address: [address] [place], [place] [address] Performed By: #### 5 7021-8 ####[facility] LABORATORYCLIA [id number] [address] [place] RBC (Bld) [#/Vol] 3.24 10*6/uL Low 4.20-6.00 [facility] Comment on above: Order Comment: Speci men Type: BLOOD SPECIMENOrdering Facility: [facility] Address: [address] [place] [address] Performed By: #### 5 7021-8 ####[facility] LABORATORYCLIA [id number] [address] [facility] WBC (Bld) [#/Vol] 11.30 10*3/uL High 3.70-11.00 [facility] Comment on above: Order Comment: Speci men Type: BLOOD SPECIMENOrdering Facility: [facility] Address: [address] [place] [address] Performed By: #### 5 7021-8 ####[facility] LABORATORYCLIA [id number] [address] NURSING PROGon 07-31-2021 NURSING PROG Normal [facility] aPTT PPPon 07-31-2021 aPTT Coag (PPP) [Time] 64.9 s High 23.0-32.4 [facility] Comment on above: Order Comment: Speci men Type: BLOOD SPECIMENOrdering Facility: [facility] Address: [address] [place] [address] Performed By: #### 1 4979-9 ####[facility] LABORATORYCLIA [id number] [address] [facility] ALLIED HEALTHon 07-30-2021 ALLIED HEALTH Normal [facility] Bacteria CSF Culton 07-31-19 22 Bacteria identified Cx Nom (CSF) CULTURE, CSF: No growth 14 days GRAM STAIN: No organisms seen Few Mononuclear cells Rare Polymorphonuclear leukocytes Gram stain performed on cytospun specimen. Normal [facility] Comment on above: Performed By: #### 6 06-4 ####[facility] LABORATORYCLIA [id number] [address] [place] Basic metabolic 2000 panelon 07-30-2021 Anion gap [Moles/Vol] 9 mmol/L Normal 9-18 [facility] Comment on above: Order Comment: Speci men Type: BLOOD SPECIMENOrdering Facility: [facility] Address: [address] [place] [address] Performed By: #### 2 777-1, 07010-5, ####[facility] LABORATORYCLIA [id number] [place] [address] [place] Calcium [Mass/Vol] 8.9 mg/dL Normal 8.5-10.2 [facility] Comment on above: Order Comment: Speci men Type: BLOOD SPECIMENOrdering Facility: [facility] Address: [address] [place] [address] Performed By: #### 2 777-1, , ####[facility] LABORATORYCLIA [id number] [place] [address] [place] Chloride [Moles/Vol] 95 mmol/L Low 97-105 [facility] Comment on above: Order Comment: Speci men Type: BLOOD SPECIMENOrdering Facility: [facility] Address: [address] [place] [address] Performed By: #### 2 777-1, , ####[facility] LABORATORYCLIA [id number] [place] [address] [place] CO2 [Moles/Vol] 28 mmol/L Normal 22-30 [facility] Comment on above: Order Comment: Speci men Type: BLOOD SPECIMENOrdering Facility: [facility] Address: [address] [place] [address] Performed By: #### 2 777-1, 48259-7, ####[facility] LABORATORYCLIA [id number] [place] [address] [place] Creatinine [Mass/Vol] 0.67 mg/dL Low 0.73-1.22 [facility] Comment on above: Order Comment: Speci men Type: BLOOD SPECIMENOrdering Facility: [facility] Address: [address] [place] [address] Performed By: #### 2 777-1, 67367-6, ####[facility] LABORATORYCLIA [id number] [address] [facility] ESTIMATED GLOMERULAR FILTRATION RATE 101 mL/min/1.73m??? Normal >=60 [facility] Comment on above: Order Comment: Shira feldman Type: BLOOD SPECIMENOrdering Facility: [facility] Address: [address] [place] [address] Result Comment: Luzmaria mated Glomerular Filtration Rate [...] actual GFR. Performed By: #### 2 777-1, 39704-7, ####[facility] LABORATORYIA [id number] [place] [address] [place] Glucose [Mass/Vol] 125 mg/dL High 74-99 [facility] Comment on above: Order Comment: Shira feldman Type: BLOOD SPECIMENOrdering Facility: [facility] Address: [address] [place] [address] Result Comment: The [place] [employer] (ADA) provides guidance for cutoff [...] Standards of Medical Care in Diabetes 2016, [place] [employer]. Diabetes Care. 2016.39(Suppl 1). Performed By: #### 2 777-1, 08433-8, ####[facility] LABORATORYCLIA [id number] [place] [address] [place] Potassium [Moles/Vol] 3.9 mmol/L Normal 3.7-5.1 [facility] Comment on above: Order Comment: Speci men Type: BLOOD SPECIMENOrdering Facility: [facility] Address: [address] [place] [address] Performed By: #### 2 777-1, 06626-1, ####[facility] LABORATORYCLIA [id number] [address] [place] Sodium [Moles/Vol] 132 mmol/L Low 136-144 [facility] Comment on above: Order Comment: Speci men Type: BLOOD SPECIMENOrdering Facility: [facility] Address: [address] [place] [address] Performed By: #### 2 777-1, , ####[facility] LABORATORYCLIA [id number] [address] [place] [facility] Urea nitrogen [Mass/Vol] 38 mg/dL High 9-24 [facility] Comment on above: Order Comment: Speci men Type: BLOOD SPECIMENOrdering Facility: [facility] Address: [address] [place] [address] Performed By: #### 2 777-1, , ####[facility] LABORATORYCLIA [id number] [address] [place] CBC W Auto Differential pane l (Bld)on 07-30-2021 Basophils (Bld) [#/Vol] 0.04 10*3/uL Normal <0.11 [facility] Comment on above: Order Comment: Speci men Type: BLOOD SPECIMENOrdering Facility: [facility] Address: [address] [place] [address] Performed By: #### 5 7021-8 ####[facility] LABORATORYCLIA [id number] [address] [place] Basophils/100 WBC (Bld) 0.4 % Normal [facility] Comment on above: Order Comment: Speci men Type: BLOOD SPECIMENOrdering Facility: [facility] Address: [address] [place] [address] Performed By: #### 5 7021-8 ####[facility] LABORATORYCLIA [id number] [address] Differential cell count method Nom (Bld) Auto Normal [facility] Comment on above: Order Comment: Speci men Type: BLOOD SPECIMENOrdering Facility: [facility] Address: [address] [place] [address] Performed By: #### 5 7021-8 ####[facility] LABORATORYCLIA [id number] [address] [place] Eosinophils (Bld) [#/Vol] 0.30 10*3/uL Normal <0.46 [facility] Comment on above: Order Comment: Speci men Type: BLOOD SPECIMENOrdering Facility: [facility] Address: [address] [place] [address] Performed By: #### 5 7021-8 ####[facility] LABORATORYCLIA [id number] [address] Eosinophils/100 WBC (Bld) 2.7 % Normal [facility] Comment on above: Order Comment: Speci men Type: BLOOD SPECIMENOrdering Facility: [facility] Address: [address] [place] [address] Performed By: #### 5 7021-8 ####[facility] LABORATORYCLIA [id number] [address] [place] Erythrocyte distribution width (RBC) [Ratio] 17.2 % High 11.5-15.0 [facility] Comment on above: Order Comment: Speci men Type: BLOOD SPECIMENOrdering Facility: [facility] Address: [address] [place] [address] Performed By: #### 5 7021-8 ####[facility]ORATORYCLIA [id number] [address] Hematocrit (Bld) [Volume fraction] 30.8 % Low 39.0-51.0 [facility] Comment on above: Order Comment: Speci men Type: BLOOD SPECIMENOrdering Facility: [facility] Address: [address] [place] [address] Performed By: #### 5 7021-8 ####[facility] LABORATORYCLIA [id number] [address] Hemoglobin (Bld) [Mass/Vol] 9.4 g/dL Low 13.0-17.0 [facility] Comment on above: Order Comment: Speci men Type: BLOOD SPECIMENOrdering Facility: [facility] Address: [address] [place] [address] Performed By: #### 5 7021-8 ####[facility] LABORATORYCLIA [id number] [address] IMMATURE GRAN % 0.5 % Normal [facility] Comment on above: Order Comment: Speci men Type: BLOOD SPECIMENOrdering Facility: [facility] Address: [address] [place] [address] Performed By: #### 5 7021-8 ####[facility] LABORATORYCLIA [id number] [address] IMMATURE GRAN ABS 0.06 k/uL Normal <0.10 [facility] Comment on above: Order Comment: Speci men Type: BLOOD SPECIMENOrdering Facility: [facility] Address: [address] [place] [address] Performed By: #### 5 7021-8 ####[facility] LABORATORYCLIA [id number] [address] Lymphocytes (Bld) [#/Vol] 1.68 10*3/uL Normal 1.00-4.00 [facility] Comment on above: Order Comment: Speci men Type: BLOOD SPECIMENOrdering Facility: [facility] Address: [address] [place], [place] [address] Performed By: #### 5 7021-8 ####[facility] LABORATORYCLIA [id number] [address] Lymphocytes/100 WBC (Bld) 15.3 % Normal [facility] Comment on above: Order Comment: Speci men Type: BLOOD SPECIMENOrdering Facility: [facility] Address: [address] [place] [address] Performed By: #### 5 7021-8 ####[facility] LABORATORYCLIA [id number] [address] MCH (RBC) [Entitic mass] 28.0 pg Normal 26.0-34.0 [facility] Comment on above: Order Comment: Speci men Type: BLOOD SPECIMENOrdering Facility: [facility] Address: [address] [place] [address] Performed By: #### 5 7021-8 ####[facility] LABORATORYCLIA [id number] [address] MCHC (RBC) [Mass/Vol] 30.5 g/dL Normal 30.5-36.0 [facility] Comment on above: Order Comment: Speci men Type: BLOOD SPECIMENOrdering Facility: [facility] Address: [address] [place] [address] Performed By: #### 5 7021-8 ####[facility] LABORATORYCLIA [id number] [address] MCV (RBC) [Entitic vol] 91.7 fL Normal 80.0-100.0 [facility] Comment on above: Order Comment: Speci men Type: BLOOD SPECIMENOrdering Facility: [facility] Address: [address] [place] [address] Performed By: #### 5 7021-8 ####[facility] LABORATORYCLIA [id number] [address] OF [facility] Monocytes (Bld) [#/Vol] 0.53 10*3/uL Normal <0.87 [facility] Comment on above: Order Comment: Speci men Type: BLOOD SPECIMENOrdering Facility: [facility] Address: [address] [place] [address] Performed By: #### 5 7021-8 ####[facility] LABORATORYCLIA [id number] [address] Monocytes/100 WBC (Bld) 4.8 % Normal [facility] Comment on above: Order Comment: Speci men Type: BLOOD SPECIMENOrdering Facility: [facility] Address: [address] [place] [address] Performed By: #### 5 7021-8 ####[facility] LABORATORYCLIA [id number] [address] [place] Neutrophils (Bld) [#/Vol] 8.39 10*3/uL High 1.45-7.50 [facility] Comment on above: Order Comment: Speci men Type: BLOOD SPECIMENOrdering Facility: [facility] Address: [address] [place] [address] Performed By: #### 5 7021-8 ####[facility] LABORATORYCLIA [id number] [address] Neutrophils/100 WBC (Bld) 76.3 % Normal [facility] Comment on above: Order Comment: Speci men Type: BLOOD SPECIMENOrdering Facility: [facility] Address: [address] [place] [address] Performed By: #### 5 7021-8 ####[facility] LABORATORYCLIA [id number] [address] [place] Nucleated RBC (Bld) [#/Vol] 10*3/uL Normal <0.01 [facility] Comment on above: Order Comment: Speci men Type: BLOOD SPECIMENOrdering Facility: [facility] Address: [address] [place] [address] Performed By: #### 5 7021-8 ####[facility] LABORATORYCLIA [id number] [address] OF [facility] Nucleated RBC/100 WBC (Bld) [Ratio] 0.0 /100 WBC Normal [facility] Comment on above: Order Comment: Speci men Type: BLOOD SPECIMENOrdering Facility: [facility] Address: [address] [place] [address] Performed By: #### 5 7021-8 ####[facility] LABORATORYCLIA [id number] [address] [place] Platelet mean volume (Bld) [Entitic vol] 10.9 fL Normal 9.0-12.7 [facility] Comment on above: Order Comment: Speci men Type: BLOOD SPECIMENOrdering Facility: [facility] Address: [address] [place] [address] Performed By: #### 5 7021-8 ####[facility] LABORATORYCLIA [id number] [address] STATES OF [facility] Platelets (Bld) [#/Vol] 287 10*3/uL Normal 150-400 [facility] Comment on above: Order Comment: Speci men Type: BLOOD SPECIMENOrdering Facility: [facility] Address: [address] [place] [address] Performed By: #### 5 7021-8 ####[facility] LABORATORYCLIA [id number] [address] [place] RBC (Bld) [#/Vol] 3.36 10*6/uL Low 4.20-6.00 [facility] Comment on above: Order Comment: Speci men Type: BLOOD SPECIMENOrdering Facility: [facility] Address: [address] [place] [address] Performed By: #### 5 7021-8 ####[facility] LABORATORYCLIA [id number] [address] [place] WBC (Bld) [#/Vol] 11.00 10*3/uL Normal 3.70-11.00 [facility] Comment on above: Order Comment: Speci men Type: BLOOD SPECIMENOrdering Facility: [facility] Address: [address] [place] [address] Performed By: #### 5 7021-8 ####[facility]ORATORYCLIA [id number] [address] CSF MANUAL DIFFon 07-30-2021 DIF TTL, CSF 100 cells counted Normal [facility] Comment on above: Order Comment: Speci men Type: CEREBROSPINAL FLUIDOrdering Facility: [facility] Address: [address] [place] [address] Performed By: #### L [id number], [id number], 96528-6 ####[facility]ORATORYCLIA [id number] [address] [place] EOSIN%, CSF 0 % Normal [facility] Comment on above: Order Comment: Speci men Type: CEREBROSPINAL FLUIDOrdering Facility: [facility] Address: [address] [place] [address] Performed By: #### L [id number], KUB7426, 73050-2 ####[facility]ORATORYCLIA [id number] [address] [place] LYMPH%, CSF 75 % Normal 50-90 [facility] Comment on above: Order Comment: Speci men Type: CEREBROSPINAL FLUIDOrdering Facility: [facility] Address: [address] [place] [address] Performed By: #### L [id number], [id number], 30054-5 ####[facility]ORATORYCLIA [id number] [place] [address] [place] MACRO%, CSF 9 % High <1 [facility] Comment on above: Order Comment: Speci men Type: CEREBROSPINAL FLUIDOrdering Facility: [facility] Address: [address] [place] [address] Performed By: #### L [id number], WAP2664, 54803-9 ####[facility]ORATORYCLIA [id number] [address] [place] MONO%, CSF 10 % Normal 10-50 [facility] Comment on above: Order Comment: Speci men Type: CEREBROSPINAL FLUIDOrdering Facility: [facility] Address: [address] [place] [address] Performed By: #### L [id number], SCX3710, 21549-6 ####[facility]ORATORYCLIA [id number] [address] OTHER CL%, CSF 4 % Normal [facility] Comment on above: Order Comment: Speci men Type: CEREBROSPINAL FLUIDOrdering Facility: [facility] Address: [address] [place] [address] Result Comment: Path review to follow. Performed By: #### L [id number], HIQ5511, 90718-2 ####[facility]ORATORYCLIA [id number] [address] REAC LYMPH %, CSF 2 % Normal [facility] Comment on above: Order Comment: Speci men Type: CEREBROSPINAL FLUIDOrdering Facility: [facility] Address: [address] [place] [address] Performed By: #### L [id number], TRA8600, 87276-1 ####[facility]ORATORYCLIA [id number] [address] CSF PATHOLOGIST INTERP (LAB REFLEX ORDER-NO BILL)on 07-30-2021 CSF STAFF REVIEW Negative Normal [facility] Comment on above: Order Comment: Speci men Type: CEREBROSPINAL FLUIDOrdering Facility: [facility] Address: [address] [place] [address] Performed By: #### L [id number], IKN3521, 97989-4 ####[facility]ORATORYCLIA [id number] [address] Pathologist name Reviewed by Eloise rebolledo MD [facility] Comment on above: Order Comment: Speci men Type: CEREBROSPINAL FLUIDOrdering Facility: [facility] Address: [address] [place] [address] Performed By: #### L [id number], GVK3344, 23470-1 ####[facility] LABORATORYCLIA [id number] [address] [place] CT BRAIN WO IVCONon 07-31-19 CT BRAIN WO IVCON Normal [facility] Cell count panel (CSF)on Clarity (CSF) Clear Normal Clear [facility] Comment on above: Order Comment: Speci men Type: CEREBROSPINAL FLUIDOrdering Facility: [facility] Address: [address] [place] [address] Performed By: #### L [id number], HST7826, 59132-9 ####[facility] LABORATORYCLIA [id number] [address] STATES [facility] Clarity (Unsp spec) Clear Normal Clear [facility] Comment on above: Order Comment: Speci men Type: CEREBROSPINAL FLUIDOrdering Facility: [facility] Address: [address] [place] [address] Performed By: #### L [id number], TQX6686, 21465-5 ####[facility] LABORATORYCLIA [id number] [address] [place] Color (CSF) Colorless Normal Colorless [facility] Comment on above: Order Comment: Speci men Type: CEREBROSPINAL FLUIDOrdering Facility: [facility] Address: [address] [place] [address] Performed By: #### L [id number], GZS8729, 68962-1 ####[facility]ORATORYCLIA [id number] [address] [place] Color (Spun CSF) Colorless Normal Colorless [facility] Comment on above: Order Comment: Speci men Type: CEREBROSPINAL FLUIDOrdering Facility: [facility] Address: [address] [place] [address] Performed By: #### L [id number], CVH6351, 43460-3 ####[facility]ORATORYCLIA [id number] [address] [place] CSF [employer] Normal [facility] Comment on above: Order Comment: Speci men Type: CEREBROSPINAL FLUIDOrdering Facility: [facility] Address: [address] [place] [address] Performed By: #### L [id number], UKV2029, 43317-4 ####[facility]ORATORYCLIA [id number] [address] RBC Manual cnt (CSF) [#/Vol] 9 cells/uL High 0-5 [facility] Comment on above: Order Comment: Speci men Type: CEREBROSPINAL FLUIDOrdering Facility: [facility] Address: [address] [place] [address] Performed By: #### L [id number], VWS4103, 95922-6 ####[facility] LABORATORYCLIA [id number] [address] WBC Manual cnt (CSF) [#/Vol] 8 cells/uL High 0-5 [facility] Comment on above: Order Comment: Speci men Type: CEREBROSPINAL FLUIDOrdering Facility: [facility] Address: [address] [place] [address] Performed By: #### L [id number], UEX5758, 51734-6 ####[facility] LABORATORYCLIA [id number] [address] Glucose CSF-mCncon 2 Glucose (CSF) [Mass/Vol] 65 mg/dL Normal 40-70 [facility] Comment on above: Order Comment: Speci men Type: CEREBROSPINAL FLUIDOrdering Facility: [facility] Address: [address] [place] [address] Result Comment: Lumb ar CSF glucose values of healthy patients are approximately 60% of the plasma values and must always be compared with a concurrently measured plasma value for adequate clinical interpretation.References: 1. Glucose HK (GLUC3) [package insert V 12.0 Nep[place]e]. [employer], [place], [place]. September 2015. 2. Michelle Moore, Loki HGarfield (2015). Chapter 7: Glucose and Lactate. Marianela Alcocer al.(eds.), Cerebrospinal Fluid in Clinical Neurology. [employer]: [employer]. Performed By: #### 2 342-4, 2880-3 ####[facility] LABORATORYCLIA [id number] [address] Magnesium SerPl-mCncon 07-30 Magnesium [Mass/Vol] 2.5 mg/dL High 1.7-2.3 [facility] Comment on above: Order Comment: Speci men Type: BLOOD SPECIMENOrdering Facility: [facility] Address: [address] [place] [address] Performed By: #### 2 777-1, 03009-5, 97223-5 ####[facility] LABORATORYCLIA [id number] [address] NURSING PROGon 07-30-2021 NURSING PROG Normal [facility] Phosphate SerPl-mCncon 07-30 Phosphate [Mass/Vol] 2.4 mg/dL Low 2.7-4.8 [facility] Comment on above: Order Comment: Speci men Type: BLOOD SPECIMENOrdering Facility: [facility] Address: [address] [place] [address] Performed By: #### 2 777-1, 12336-0, ####[facility] LABORATORYCLIA [id number] [address] Prot CSF-mCncon 07-30-2021 Protein (CSF) [Mass/Vol] 50 mg/dL High 15-45 [facility] Comment on above: Order Comment: Speci men Type: CEREBROSPINAL FLUIDOrdering Facility: [facility] Address: [address] [place] [address] Performed By: #### 2 342-4, 2880-3 ####[facility] LABORATORYCLIA [id number] [address] aPTT PPPon 07-30-2021 aPTT Coag (PPP) [Time] 64.1 s High 23.0-32.4 [facility] Comment on above: Order Comment: Speci men Type: BLOOD SPECIMENOrdering Facility: [facility] Address: [address] [place] [place] [address] Performed By: #### 1 4979-9 ####[facility] LABORATORYCLIA [id number] [address] [place] Bacteria CSF Culton 07-30-19 22 Bacteria identified Cx Nom (CSF) CULTURE, CSF: No growth 14 days GRAM STAIN: No cells or organisms seen Gram stain performed on cytospun specimen. Gram stain confirmed by microbiology Normal [facility] Comment on above: Performed By: #### 6 06-4 ####[facility] LABORATORYCLIA [id number] [address] [place] CASE MANAGEMon 07-29-2021 CASE MANAGEM Normal [facility] CBC W Auto Differential pane l (Bld)on 07-29-2021 Basophils (Bld) [#/Vol] 0.03 10*3/uL Normal <0.11 [facility] Comment on above: Order Comment: Speci men Type: BLOOD SPECIMENOrdering Facility: [facility] Address: [address] [place] [address] Performed By: #### 5 7021-8 ####[facility] LABORATORYCLIA [id number] [address] [place] Basophils/100 WBC (Bld) 0.3 % Normal [facility] Comment on above: Order Comment: Speci men Type: BLOOD SPECIMENOrdering Facility: [facility] Address: [facility] [place] [address] Performed By: #### 5 7021-8 ####[facility]ORATORYCLIA [id number] [address] [place] Differential cell count method Nom (Bld) Auto Normal [facility] Comment on above: Order Comment: Speci men Type: BLOOD SPECIMENOrdering Facility: [facility] Address: [address] [place] [address] Performed By: #### 5 7021-8 ####[facility] LABORATORYCLIA [id number] [address] [place] Eosinophils (Bld) [#/Vol] 0.40 10*3/uL Normal <0.46 [facility] Comment on above: Order Comment: Speci men Type: BLOOD SPECIMENOrdering Facility: [facility] Address: [address] [place] [address] Performed By: #### 5 7021-8 ####[facility]ORATORYCLIA [id number] [address] Eosinophils/100 WBC (Bld) 3.9 % Normal [facility] Comment on above: Order Comment: Speci men Type: BLOOD SPECIMENOrdering Facility: [facility] Address: [address] [place] [address] Performed By: #### 5 7021-8 ####[facility]ORATORYCLIA [id number] [address] Erythrocyte distribution width (RBC) [Ratio] 17.1 % High 11.5-15.0 [facility] Comment on above: Order Comment: Speci men Type: BLOOD SPECIMENOrdering Facility: [facility] Address: [address] [place] [address] Performed By: #### 5 7021-8 ####[facility] LABORATORYCLIA [id number] [address] [place] Hematocrit (Bld) [Volume fraction] 32.0 % Low 39.0-51.0 [facility] Comment on above: Order Comment: Speci men Type: BLOOD SPECIMENOrdering Facility: [facility] Address: [address] [place] [address] Performed By: #### 5 7021-8 ####[facility]ORATORYCLIA [id number] [address] [place] Hemoglobin (Bld) [Mass/Vol] 9.7 g/dL Low 13.0-17.0 [facility] Comment on above: Order Comment: Speci men Type: BLOOD SPECIMENOrdering Facility: [facility] Address: [address] [place] [address] Performed By: #### 5 7021-8 ####[facility]ATORYCLIA [id number] [address] IMMATURE GRAN % 0.6 % Normal [facility] Comment on above: Order Comment: Speci men Type: BLOOD SPECIMENOrdering Facility: [facility] Address: [address] [place] [address] Performed By: #### 5 7021-8 ####[facility]ORATORYCLIA [id number] [address] IMMATURE GRAN ABS 0.06 k/uL Normal <0.10 [facility] Comment on above: Order Comment: Speci men Type: BLOOD SPECIMENOrdering Facility: [facility] Address: [address] [place] [address] Performed By: #### 5 7021-8 ####[facility] LABORATORYCLIA [id number] [address] Lymphocytes (Bld) [#/Vol] 1.96 10*3/uL Normal 1.00-4.00 [facility] Comment on above: Order Comment: Speci men Type: BLOOD SPECIMENOrdering Facility: [facility] Address: [address] [place] [address] Performed By: #### 5 7021-8 ####[facility]ORATORYCLIA [id number] [address] Lymphocytes/100 WBC (Bld) 19.0 % Normal [facility] Comment on above: Order Comment: Speci men Type: BLOOD SPECIMENOrdering Facility: [facility] Address: [address] [place] [address] Performed By: #### 5 7021-8 ####[facility]ORATORYCLIA [id number] [address] MCH (RBC) [Entitic mass] 28.0 pg Normal 26.0-34.0 [facility] Comment on above: Order Comment: Speci men Type: BLOOD SPECIMENOrdering Facility: [facility] Address: [address] [place] [address] Performed By: #### 5 7021-8 ####[facility] LABORATORYCLIA [id number] [address] STATES OF [facility] MCHC (RBC) [Mass/Vol] 30.3 g/dL Low 30.5-36.0 [facility] Comment on above: Order Comment: Speci men Type: BLOOD SPECIMENOrdering Facility: [facility] Address: [address] [place] [address] Performed By: #### 5 7021-8 ####[facility] LABORATORYCLIA [id number] [address] [place] MCV (RBC) [Entitic vol] 92.5 fL Normal 80.0-100.0 [facility] Comment on above: Order Comment: Speci men Type: BLOOD SPECIMENOrdering Facility: [facility] Address: [address] [place] [address] Performed By: #### 5 7021-8 ####[facility]ORATORYCLIA [id number] [address] [place] Monocytes (Bld) [#/Vol] 0.53 10*3/uL Normal <0.87 [facility] Comment on above: Order Comment: Speci men Type: BLOOD SPECIMENOrdering Facility: [facility] Address: [address] [place] [address] Performed By: #### 5 7021-8 ####[facility] LABORATORYCLIA [id number] [address] Monocytes/100 WBC (Bld) 5.2 % Normal [facility] Comment on above: Order Comment: Speci men Type: BLOOD SPECIMENOrdering Facility: [facility] Address: [address] [place] [address] Performed By: #### 5 7021-8 ####[facility] [facility]ATORYCLIA [id number] [address] [place] Neutrophils (Bld) [#/Vol] 7.31 10*3/uL Normal 1.45-7.50 [facility] Comment on above: Order Comment: Speci men Type: BLOOD SPECIMENOrdering Facility: [facility] Address: [address] [place] [address] Performed By: #### 5 7021-8 ####[facility] LABORATORYCLIA [id number] [address] Neutrophils/100 WBC (Bld) 71.0 % Normal [facility] Comment on above: Order Comment: Speci men Type: BLOOD SPECIMENOrdering Facility: [facility] Address: [address] [place] [address] Performed By: #### 5 7021-8 ####[facility]ORATORYCLIA [id number] [address] [place] Nucleated RBC (Bld) [#/Vol] 10*3/uL Normal <0.01 [facility] Comment on above: Order Comment: Speci men Type: BLOOD SPECIMENOrdering Facility: [facility] Address: [address] [place] [address] Performed By: #### 5 7021-8 ####[facility]ORATORYCLIA [id number] [address] STATES [facility] Nucleated RBC/100 WBC (Bld) [Ratio] 0.0 /100 WBC Normal [facility] Comment on above: Order Comment: Speci men Type: BLOOD SPECIMENOrdering Facility: [facility] Address: [address] [place] [address] Performed By: #### 5 7021-8 ####[facility]ORATORYCLIA [id number] [place] [address] [place] Platelet mean volume (Bld) [Entitic vol] 11.2 fL Normal 9.0-12.7 [facility] Comment on above: Order Comment: Speci men Type: BLOOD SPECIMENOrdering Facility: [facility] Address: [address] [place] [address] Performed By: #### 5 7021-8 ####[facility]ATORYCLIA [id number] [address] OF [facility] Platelets (Bld) [#/Vol] 276 10*3/uL Normal 150-400 [facility] Comment on above: Order Comment: Speci men Type: BLOOD SPECIMENOrdering Facility: [facility] Address: [address] [place] [address] Performed By: #### 5 7021-8 ####[facility]ORATORYCLIA [id number] [address] [place] RBC (Bld) [#/Vol] 3.46 10*6/uL Low 4.20-6.00 [facility] Comment on above: Order Comment: Speci men Type: BLOOD SPECIMENOrdering Facility: [facility] Address: [address] [place] [address] Performed By: #### 5 7021-8 ####[facility]ORATORYCLIA [id number] [address] OF [facility] WBC (Bld) [#/Vol] 10.29 10*3/uL Normal 3.70-11.00 [facility] Comment on above: Order Comment: Speci men Type: BLOOD SPECIMENOrdering Facility: [facility] Address: [address] [place] [address] Performed By: #### 5 7021-8 ####[facility] LABORATORYCLIA [id number] [address] [facility] NURSING PROGon 07-29-2021 NURSING PROG Normal [facility] THERAPY NTon 07-29-2021 THERAPY NT Normal [facility] aPTT PPPon 07-29-2021 aPTT Coag (PPP) [Time] 59.2 s High 23.0-32.4 [facility] Comment on above: Order Comment: Speci men Type: BLOOD SPECIMENOrdering Facility: [facility] Address: [address] [place] [address] Performed By: #### 1 4979-9 ####[facility]ORATORYCLIA [id number] [place] [address] [place] ALLIED HEALTHon 07-28-2021 ALLIED HEALTH Normal [facility] Basic metabolic 2000 panelon 07-28-2021 Anion gap [Moles/Vol] 7 mmol/L Low 9-18 [facility] Comment on above: Order Comment: Speci men Type: BLOOD SPECIMENOrdering Facility: [facility] Address: [address] [place] [address] Performed By: #### 1 4338-8, 59546-6, 277-, 64115-6 ####[facility]ORATORYCLIA [id number] [place] [address] [place] Calcium [Mass/Vol] 9.0 mg/dL Normal 8.5-10.2 [facility] Comment on above: Order Comment: Speci men Type: BLOOD SPECIMENOrdering Facility: [facility] Address: [address] [place] [address] Performed By: #### 1 4338-8, , 27711-04, 34613-1 ####[facility]ATORYCLIA [id number] [place] [address] [place] Chloride [Moles/Vol] 94 mmol/L Low 97-105 [facility] Comment on above: Order Comment: Speci men Type: BLOOD SPECIMENOrdering Facility: [facility] Address: [address] [place] [address] Performed By: #### 1 4338-8, 09439-3, 27711-04, 92713-9 ####[facility]ATORYCLIA [id number] [place] [address] [place] CO2 [Moles/Vol] 31 mmol/L High 22-30 [facility] Comment on above: Order Comment: Speci men Type: BLOOD SPECIMENOrdering Facility: [facility] Address: [address] [place] [address] Performed By: #### 1 4338-8, 90411-2, 277-1, 09870-6 ####[facility]ATORYCLIA [id number] [address] STATES OF [facility] Creatinine [Mass/Vol] 0.75 mg/dL Normal 0.73-1.22 [facility] Comment on above: Order Comment: Shira feldman Type: BLOOD SPECIMENOrdering Facility: [facility] Address: [address] [address] Performed By: #### 1 4338-8, 66070-0, 2777-1, 94214-2 ####[facility]ORATORYCLIA [id number] [place] [id number] [place] [facility] ESTIMATED GLOMERULAR FILTRATION RATE 98 mL/min/1.73m??? Normal >=60 [facility] Comment on above: Order Comment: Shiar feldman Type: BLOOD SPECIMENOrdering Facility: [facility] Address: [address] [place] [address] Result Comment: Luzmaria mated Glomerular Filtration Rate [...] actual GFR. Performed By: #### 1 4338-8, 07362-9, 2777-1, 76638-7 ####[facility]ATORYCLIA [id number] [address] STATES OF [facility] Glucose [Mass/Vol] 122 mg/dL High 74-99 [facility] Comment on above: Order Comment: Shira feldman Type: BLOOD SPECIMENOrdering Facility: [facility] Address: [address] [address] Result Comment: The [place] [employer] (ADA) provides guidance for cutoff [...] Standards of Medical Care in Diabetes 2016, [place] [employer]. Diabetes Care. 2016.39(Suppl 1). Performed By: #### 1 4338-8, 73603-7, 7-1, 99756-9 ####[facility]ORATORYCLIA [id number] [place] [address] [place] Potassium [Moles/Vol] 4.0 mmol/L Normal 3.7-5.1 [facility] Comment on above: Order Comment: Speci men Type: BLOOD SPECIMENOrdering Facility: [facility] Address: [address] [place] [address] Performed By: #### 1 4338-8, 81646-5, 2776-, 67199-4 ####[facility]ORATORYCLIA [id number] [place] [address] [place] [facility] Sodium [Moles/Vol] 132 mmol/L Low 136-144 [facility] Comment on above: Order Comment: Speci men Type: BLOOD SPECIMENOrdering Facility: [facility] Address: [address] [place] [address] Performed By: #### 1 4338-8, , 2776-05, 36630-1 ####[facility]ATORYCLIA [id number] [address] [place] Urea nitrogen [Mass/Vol] 34 mg/dL High -24 [facility] Comment on above: Order Comment: Speci men Type: BLOOD SPECIMENOrdering Facility: [facility] Address: [address] [place] [address] Performed By: #### 1 4338-8, , 2776-, 37190-3 ####[facility]ATORYCLIA [id number] [place] [address] [place] CBC W Auto Differential pane l (Bld)on 07-28-2021 Basophils (Bld) [#/Vol] 0.04 10*3/uL Normal <0.11 [facility] Comment on above: Order Comment: Speci men Type: BLOOD SPECIMENOrdering Facility: [facility] Address: [address] [place] [address] Performed By: #### 5 7021-8 ####[facility]ATORYCLIA [id number] [address] [place] Basophils/100 WBC (Bld) 0.5 % Normal [facility] Comment on above: Order Comment: Speci men Type: BLOOD SPECIMENOrdering Facility: [facility] Address: [address] [place] [address] Performed By: #### 5 7021-8 ####[facility]ATORYCLIA [id number] [address] [place] Differential cell count method Nom (Bld) Auto Normal [facility] Comment on above: Order Comment: Speci men Type: BLOOD SPECIMENOrdering Facility: [facility] Address: [address] [place] [address] Performed By: #### 5 7021-8 ####[facility]ORATORYCLIA [id number] [place] [address] [place] Eosinophils (Bld) [#/Vol] 0.30 10*3/uL Normal <0.46 [facility] Comment on above: Order Comment: Speci men Type: BLOOD SPECIMENOrdering Facility: [facility] Address: [address] [place] [address] Performed By: #### 5 7021-8 ####[facility]ATORYCLIA [id number] [address] [place] Eosinophils/100 WBC (Bld) 3.4 % Normal [facility] Comment on above: Order Comment: Speci men Type: BLOOD SPECIMENOrdering Facility: [facility] Address: [address] [place] [address] Performed By: #### 5 7021-8 ####[facility]ATORYCLIA [id number] [address] Erythrocyte distribution width (RBC) [Ratio] 16.9 % High 11.5-15.0 [facility] Comment on above: Order Comment: Speci men Type: BLOOD SPECIMENOrdering Facility: [facility] Address: [address] [place] [address] Performed By: #### 5 7021-8 ####[facility]ORATORYCLIA [id number] [address] Hematocrit (Bld) [Volume fraction] 30.3 % Low 39.0-51.0 [facility] Comment on above: Order Comment: Speci men Type: BLOOD SPECIMENOrdering Facility: [facility] Address: [address] [place] [address] Performed By: #### 5 7021-8 ####[facility]ATORYCLIA [id number] [address] Hemoglobin (Bld) [Mass/Vol] 9.2 g/dL Low 13.0-17.0 [facility] Comment on above: Order Comment: Speci men Type: BLOOD SPECIMENOrdering Facility: [facility] Address: [address] [place] [address] Performed By: #### 5 7021-8 ####[facility]ORATORYCLIA [id number] [address] IMMATURE GRAN % 0.6 % Normal [facility] Comment on above: Order Comment: Speci men Type: BLOOD SPECIMENOrdering Facility: [facility] Address: [address] [place] [address] Performed By: #### 5 7021-8 ####[facility]ATORYCLIA [id number] [address] IMMATURE GRAN ABS 0.05 k/uL Normal <0.10 [facility] Comment on above: Order Comment: Speci men Type: BLOOD SPECIMENOrdering Facility: [facility] Address: [address] [place] [address] Performed By: #### 5 7021-8 ####[facility]ORATORYCLIA [id number] [address] Lymphocytes (Bld) [#/Vol] 1.68 10*3/uL Normal 1.00-4.00 [facility] Comment on above: Order Comment: Speci men Type: BLOOD SPECIMENOrdering Facility: [facility] Address: [address] [place] [address] Performed By: #### 5 7021-8 ####[facility]ATORYCLIA [id number] [address] Lymphocytes/100 WBC (Bld) 19.2 % Normal [facility] Comment on above: Order Comment: Speci men Type: BLOOD SPECIMENOrdering Facility: [facility] Address: [address] [place] [address] Performed By: #### 5 7021-8 ####[facility]ORATORYCLIA [id number] [address] MCH (RBC) [Entitic mass] 28.4 pg Normal 26.0-34.0 [facility] Comment on above: Order Comment: Speci men Type: BLOOD SPECIMENOrdering Facility: [facility] Address: [address] [place] [address] Performed By: #### 5 7021-8 ####[facility]ORATORYCLIA [id number] [address] STATES OF [facility] MCHC (RBC) [Mass/Vol] 30.4 g/dL Low 30.5-36.0 [facility] Comment on above: Order Comment: Speci men Type: BLOOD SPECIMENOrdering Facility: [facility] Address: [address] [place] [address] Performed By: #### 5 7021-8 ####[facility]ORATORYCLIA [id number] [address] STATES OF [facility] MCV (RBC) [Entitic vol] 93.5 fL Normal 80.0-100.0 [facility] Comment on above: Order Comment: Speci men Type: BLOOD SPECIMENOrdering Facility: [facility] Address: [address] [place] [address] Performed By: #### 5 7021-8 ####[facility]ATORYCLIA [id number] [address] [place] Monocytes (Bld) [#/Vol] 0.58 10*3/uL Normal <0.87 [facility] Comment on above: Order Comment: Speci men Type: BLOOD SPECIMENOrdering Facility: [facility] Address: [address] [place] [address] Performed By: #### 5 7021-8 ####[facility]ORATORYCLIA [id number] [address] [place] Monocytes/100 WBC (Bld) 6.6 % Normal [facility] Comment on above: Order Comment: Speci men Type: BLOOD SPECIMENOrdering Facility: [facility] Address: [address] [place] [address] Performed By: #### 5 7021-8 ####[facility]ORATORYCLIA [id number] [place] [address] [place] Neutrophils (Bld) [#/Vol] 6.11 10*3/uL Normal 1.45-7.50 [facility] Comment on above: Order Comment: Speci men Type: BLOOD SPECIMENOrdering Facility: [facility] Address: [address] [place] [address] Performed By: #### 5 7021-8 ####[facility]ORATORYCLIA [id number] [address] [place] Neutrophils/100 WBC (Bld) 69.7 % Normal [facility] Comment on above: Order Comment: Speci men Type: BLOOD SPECIMENOrdering Facility: [facility] Address: [address] [place] [address] Performed By: #### 5 7021-8 ####[facility] LABORATORYCLIA [id number] [place] [address] [place] Nucleated RBC (Bld) [#/Vol] 10*3/uL Normal <0.01 [facility] Comment on above: Order Comment: Speci men Type: BLOOD SPECIMENOrdering Facility: [facility] Address: [address] [place] [address] Performed By: #### 5 7021-8 ####[facility]ORATORYCLIA [id number] [place] [address] [place] Nucleated RBC/100 WBC (Bld) [Ratio] 0.0 /100 WBC Normal [facility] Comment on above: Order Comment: Speci men Type: BLOOD SPECIMENOrdering Facility: [facility] Address: [address] [place] [address] Performed By: #### 5 7021-8 ####[facility]ORATORYCLIA [id number] [place] [address] [place] Platelet mean volume (Bld) [Entitic vol] 11.3 fL Normal 9.0-12.7 [facility] Comment on above: Order Comment: Speci men Type: BLOOD SPECIMENOrdering Facility: [facility] Address: [address] [place] [address] Performed By: #### 5 7021-8 ####[facility]ATORYCLIA [id number] [address] [place] Platelets (Bld) [#/Vol] 238 10*3/uL Normal 150-400 [facility] Comment on above: Order Comment: Speci men Type: BLOOD SPECIMENOrdering Facility: [facility] Address: [address] Performed By: #### 5 7021-8 ####[facility]ATORYCLIA [id number] [place] [address] [place] RBC (Bld) [#/Vol] 3.24 10*6/uL Low 4.20-6.00 [facility] Comment on above: Order Comment: Speci men Type: BLOOD SPECIMENOrdering Facility: [facility] Address: [address] [place] [address] Performed By: #### 5 7021-8 ####[facility]ATORYCLIA [id number] [place] [address] [place] WBC (Bld) [#/Vol] 8.76 10*3/uL Normal 3.70-11.00 [facility] Comment on above: Order Comment: Speci men Type: BLOOD SPECIMENOrdering Facility: [facility] Address: [address] [place] [address] Performed By: #### 5 7021-8 ####[facility]ORATORYCLIA [id number] [address] [place] MRI BRAIN WO/W IVCONon 07-28 MRI BRAIN WO/W IVCON Normal [facility] Magnesium SerPl-mCncon 07-28 Magnesium [Mass/Vol] 2.5 mg/dL High 1.7-2.3 [facility] Comment on above: Order Comment: Speci men Type: BLOOD SPECIMENOrdering Facility: [facility] Address: [address] [place] [address] Performed By: #### 1 4338-8, 20175-8, 277-, 56024-4 ####[facility]ATORYCLIA [id number] [address] [place] NURSING PROGon 07-28-2021 NURSING PROG Normal [facility] NURSING PROG Normal [facility] Phosphate SerPl-mCncon 07-28 Phosphate [Mass/Vol] 2.8 mg/dL Normal 2.7-4.8 [facility] Comment on above: Order Comment: Speci men Type: BLOOD SPECIMENOrdering Facility: [facility] Address: [address] [place] [address] Performed By: #### 1 4338-8, 66561-9, 277-1, 49482-4 ####[facility]ORATORYCLIA [id number] [address] [place] Prealbumin [Mass/Vol]on 07-06 Prealbumin Nephelometry [Mass/Vol] 25 mg/dL Normal 17-36 [facility] Comment on above: Order Comment: Speci men Type: BLOOD SPECIMENOrdering Facility: [facility] Address: [address] [place] [address] Performed By: #### 1 4338-8, 51495-3, 2777-1, 22565-3 ####[facility]ORATORYCLIA [id number] [address] OF [facility] aPTT PPPon 07-28-2021 aPTT Coag (PPP) [Time] 53.0 s High 23.0-32.4 [facility] Comment on above: Order Comment: Speci men Type: BLOOD SPECIMENOrdering Facility: [facility] Address: [address] [place] [address] Performed By: #### 1 4979-9 ####[facility] [id number] [address] aPTT Coag (PPP) [Time] 57.2 s High 23.0-32.4 [facility] Comment on above: Order Comment: Speci men Type: BLOOD SPECIMENOrdering Facility: [facility] Address: [address] [place] [address] Performed By: #### 1 4979-9 ####[facility]ORATORYCLIA [id number] [address] Bacteria CSF Culton 07-28-19 Bacteria identified Cx Nom (CSF) CULTURE, CSF: No growth 14 days GRAM STAIN: No organisms seen Rare Polymorphonuclear leukocytes Rare Red Blood Cells Gram stain performed on cytospun specimen. Normal [facility] Comment on above: Performed By: #### 6 06-4 ####[facility]ORATORYCLIA [id number] [address] OF [facility] Bacteria Spec Resp Culton Bacteria identified Respiratory culture Nom (Unsp spec) CULTURE, RESPIRATORY: Rare Normal respiratory chris present GRAM STAIN: No organisms seen Rare Polymorphonuclear leukocytes Rare Epithelial cells Normal [facility] Comment on above: Performed By: #### 3 2355-0 ####[facility]ATORYCLIA [id number] [address] OF [facility] CASE MANAGEMon 07-27-2021 CASE MANAGEM Normal [facility] CBC W Auto Differential pane l (Bld)on 07-27-2021 Basophils (Bld) [#/Vol] 0.04 10*3/uL Normal <0.11 [facility] Comment on above: Order Comment: Speci men Type: BLOOD SPECIMENOrdering Facility: [facility] Address: [address] [place] [address] Performed By: #### 5 7021-8 ####[facility]ATORYCLIA [id number] [address] Basophils/100 WBC (Bld) 0.4 % Normal [facility] Comment on above: Order Comment: Speci men Type: BLOOD SPECIMENOrdering Facility: [facility] Address: [address] [place] [address] Performed By: #### 5 7021-8 ####[facility]ORATORYCLIA [id number] [address] Differential cell count method Nom (Bld) Auto Normal [facility] Comment on above: Order Comment: Speci men Type: BLOOD SPECIMENOrdering Facility: [facility] Address: [address] [place] [address] Performed By: #### 5 7021-8 ####[facility]ORATORYCLIA [id number] [address] [place] Eosinophils (Bld) [#/Vol] 0.50 10*3/uL High <0.46 [facility] Comment on above: Order Comment: Speci men Type: BLOOD SPECIMENOrdering Facility: [facility] Address: [address] [place] [address] Performed By: #### 5 7021-8 ####[facility]ORATORYCLIA [id number] [address] Eosinophils/100 WBC (Bld) 5.2 % Normal [facility] Comment on above: Order Comment: Speci men Type: BLOOD SPECIMENOrdering Facility: [facility] Address: [address] [place] [address] Performed By: #### 5 7021-8 ####[facility]ORATORYCLIA [id number] [address] Erythrocyte distribution width (RBC) [Ratio] 16.8 % High 11.5-15.0 [facility] Comment on above: Order Comment: Speci men Type: BLOOD SPECIMENOrdering Facility: [facility] Address: [address] [place] [address] Performed By: #### 5 7021-8 ####[facility]ORATORYCLIA [id number] [address] OF [facility] Hematocrit (Bld) [Volume fraction] 29.8 % Low 39.0-51.0 [facility] Comment on above: Order Comment: Speci men Type: BLOOD SPECIMENOrdering Facility: [facility] Address: [address] [place] [address] Performed By: #### 5 7021-8 ####[facility]ORATORYCLIA [id number] [address] [facility] Hemoglobin (Bld) [Mass/Vol] 9.0 g/dL Low 13.0-17.0 [facility] Comment on above: Order Comment: Speci men Type: BLOOD SPECIMENOrdering Facility: [facility] Address: [address] [place] [address] Performed By: #### 5 7021-8 ####[facility] LABORATORYCLIA [id number] [address] [facility] IMMATURE GRAN % 0.6 % Normal [facility] Comment on above: Order Comment: Speci men Type: BLOOD SPECIMENOrdering Facility: [facility] Address: [address] [place] [address] Performed By: #### 5 7021-8 ####[facility] LABORATORYCLIA [id number] [address] IMMATURE GRAN ABS 0.06 k/uL Normal <0.10 [facility] Comment on above: Order Comment: Speci men Type: BLOOD SPECIMENOrdering Facility: [facility] Address: [address] [place] [address] Performed By: #### 5 7021-8 ####[facility] LABORATORYCLIA [id number] [address] [place] Lymphocytes (Bld) [#/Vol] 1.73 10*3/uL Normal 1.00-4.00 [facility] Comment on above: Order Comment: Speci men Type: BLOOD SPECIMENOrdering Facility: [facility] Address: [address] [place] [address] Performed By: #### 5 7021-8 ####[facility] LABORATORYCLIA [id number] [address] Lymphocytes/100 WBC (Bld) 17.9 % Normal [facility] Comment on above: Order Comment: Speci men Type: BLOOD SPECIMENOrdering Facility: [facility] Address: [address] [place] [address] Performed By: #### 5 7021-8 ####[facility] LABORATORYCLIA [id number] [address] MCH (RBC) [Entitic mass] 28.1 pg Normal 26.0-34.0 [facility] Comment on above: Order Comment: Speci men Type: BLOOD SPECIMENOrdering Facility: [facility] Address: [address] [place] [address] Performed By: #### 5 7021-8 ####[facility] LABORATORYCLIA [id number] [address] MCHC (RBC) [Mass/Vol] 30.2 g/dL Low 30.5-36.0 [facility] Comment on above: Order Comment: Speci men Type: BLOOD SPECIMENOrdering Facility: [facility] Address: [address] [place] [address] Performed By: #### 5 7021-8 ####[facility] LABORATORYCLIA [id number] [place] [address] [place] MCV (RBC) [Entitic vol] 93.1 fL Normal 80.0-100.0 [facility] Comment on above: Order Comment: Speci men Type: BLOOD SPECIMENOrdering Facility: [facility] Address: [address] [place] [address] Performed By: #### 5 7021-8 ####[facility] LABORATORYCLIA [id number] [address] [place] Monocytes (Bld) [#/Vol] 0.59 10*3/uL Normal <0.87 [facility] Comment on above: Order Comment: Speci men Type: BLOOD SPECIMENOrdering Facility: [facility] Address: [address] [place] [address] Performed By: #### 5 7021-8 ####[facility] LABORATORYCLIA [id number] [address] STATES [facility] Monocytes/100 WBC (Bld) 6.1 % Normal [facility] Comment on above: Order Comment: Speci men Type: BLOOD SPECIMENOrdering Facility: [facility] Address: [address] [place] [address] Performed By: #### 5 7021-8 ####[facility] LABORATORYCLIA [id number] [place] [address] [place] Neutrophils (Bld) [#/Vol] 6.75 10*3/uL Normal 1.45-7.50 [facility] Comment on above: Order Comment: Speci men Type: BLOOD SPECIMENOrdering Facility: [facility] Address: [address] [place] [address] Performed By: #### 5 7021-8 ####[facility] LABORATORYCLIA [id number] [address] [place] Neutrophils/100 WBC (Bld) 69.8 % Normal [facility] Comment on above: Order Comment: Speci men Type: BLOOD SPECIMENOrdering Facility: [facility] Address: [address] Performed By: #### 5 7021-8 ####[facility] LABORATORYCLIA [id number] [address] [place] Nucleated RBC (Bld) [#/Vol] 10*3/uL Normal <0.01 [facility] Comment on above: Order Comment: Speci men Type: BLOOD SPECIMENOrdering Facility: [facility] Address: [address] [place], [place] [address] Performed By: #### 5 7021-8 ####[facility] LABORATORYCLIA [id number] [address] [place] Nucleated RBC/100 WBC (Bld) [Ratio] 0.0 /100 WBC Normal [facility] Comment on above: Order Comment: Speci men Type: BLOOD SPECIMENOrdering Facility: [facility] Address: [address] [place] [address] Performed By: #### 5 7021-8 ####[facility] LABORATORYCLIA [id number] [address] [place] Platelet mean volume (Bld) [Entitic vol] 11.3 fL Normal 9.0-12.7 [facility] Comment on above: Order Comment: Speci men Type: BLOOD SPECIMENOrdering Facility: [facility] Address: [address] Performed By: #### 5 7021-8 ####[facility] LABORATORYCLIA [id number] [address] [place] Platelets (Bld) [#/Vol] 227 10*3/uL Normal 150-400 [facility] Comment on above: Order Comment: Speci men Type: BLOOD SPECIMENOrdering Facility: [facility] Address: [address] [place] [address] Performed By: #### 5 7021-8 ####[facility] LABORATORYCLIA [id number] [place] [address] [place] RBC (Bld) [#/Vol] 3.20 10*6/uL Low 4.20-6.00 [facility] Comment on above: Order Comment: Speci men Type: BLOOD SPECIMENOrdering Facility: [facility] Address: [address] [place] [address] Performed By: #### 5 7021-8 ####[facility] LABORATORYCLIA [id number] [place] [address] [place] WBC (Bld) [#/Vol] 9.67 10*3/uL Normal 3.70-11.00 [facility] Comment on above: Order Comment: Speci men Type: BLOOD SPECIMENOrdering Facility: [facility] Address: [address] [place] [address] Performed By: #### 5 7021-8 ####[facility] LABORATORYCLIA [id number] [address] OF [facility] CONSULT PROGon 07-27-2021 CONSULT PROG Normal [facility] CSF MANUAL DIFFon 07-27-2021 DIF TTL, CSF 100 cells counted Normal [facility] Comment on above: Order Comment: Speci men Type: CEREBROSPINAL FLUIDOrdering Facility: [facility] Address: [address] [place] [address] Performed By: #### L [id number], 07259-9, [id number] ####[facility] LABORATORYCLIA [id number] [place] [address] [place] LYMPH%, CSF 75 % Normal 50-90 [facility] Comment on above: Order Comment: Speci men Type: CEREBROSPINAL FLUIDOrdering Facility: [facility] Address: [address] [place] [address] Performed By: #### L OF1776, 72818-9, [id number] ####[facility] LABORATORYCLIA [id number] [address] [place] MONO%, CSF 22 % Normal 10-50 [facility] Comment on above: Order Comment: Speci men Type: CEREBROSPINAL FLUIDOrdering Facility: [facility] Address: [address] [place] [address] Performed By: #### L [id number], 67328-0, [id number] ####[facility] LABORATORYCLIA [id number] [address] [place] NEUT%, CSF 2 % Normal 0-3 [facility] Comment on above: Order Comment: Speci men Type: CEREBROSPINAL FLUIDOrdering Facility: [facility] Address: [address] [place] [address] Performed By: #### L [id number], 16754-7, [id number] ####[facility] LABORATORYCLIA [id number] [address] OTHER CL%, CSF 1 % Normal [facility] Comment on above: Order Comment: Speci men Type: CEREBROSPINAL FLUIDOrdering Facility: [facility] Address: [address] [place] [address] Result Comment: Path ologist review of microscopy results to follow Performed By: #### L [id number], 31295-2, [id number] ####[facility]ORATORYCLIA [id number] [address] CSF PATHOLOGIST INTERP (LAB REFLEX ORDER-NO BILL)on 07-27-2021 CSF STAFF REVIEW Negative [facility] Comment on above: Order Comment: Speci men Type: CEREBROSPINAL FLUIDOrdering Facility: [facility] Address: [address] [place] [address] Performed By: #### L [id number], 49490-1, [id number] ####[facility] LABORATORYCLIA [id number] [address] Pathologist name Reviewed by Amador Stevens MD [facility] Comment on above: Order Comment: Speci men Type: CEREBROSPINAL FLUIDOrdering Facility: [facility] Address: [address] [place] [address] Performed By: #### L [id number], 65366-2, [id number] ####[facility]ORATORYCLIA [id number] [address] Cell count panel (CSF)on Clarity (CSF) Clear Normal Clear [facility] Comment on above: Order Comment: Speci men Type: CEREBROSPINAL FLUIDOrdering Facility: [facility] Address: [address] [place] [address] Performed By: #### L [id number], 67123-2, [id number] ####[facility]ORATORYCLIA [id number] [address] Clarity (Unsp spec) Not Indicated Normal Clear [facility] Comment on above: Order Comment: Speci men Type: CEREBROSPINAL FLUIDOrdering Facility: [facility] Address: [address] [place] [address] Performed By: #### L [id number], 72463-8, [id number] ####[facility]ORATORYCLIA [id number] [address] Color (CSF) Colorless Normal Colorless [facility] Comment on above: Order Comment: Speci men Type: CEREBROSPINAL FLUIDOrdering Facility: [facility] Address: [address] [place] [address] Performed By: #### L [id number], 14036-9, [id number] ####[facility]ORATORYCLIA [id number] [address] Color (Spun CSF) Not Indicated Normal Colorless [facility] Comment on above: Order Comment: Speci men Type: CEREBROSPINAL FLUIDOrdering Facility: [facility] Address: [address] [address] Performed By: #### L [id number], 79518-9, [id number] ####[facility] LABORATORYCLIA [id number] [address] CSF [employer] Normal [facility] Comment on above: Order Comment: Speci men Type: CEREBROSPINAL FLUIDOrdering Facility: [facility] Address: [address] [place] [address] Performed By: #### L [id number], 81787-8, [id number] ####[facility]ORATORYCLIA [id number] [address] RBC Manual cnt (CSF) [#/Vol] 39 cells/uL High 0-5 [facility] Comment on above: Order Comment: Speci men Type: CEREBROSPINAL FLUIDOrdering Facility: [facility] Address: [address] [place] [address] Performed By: #### L [id number], 22140-5, [id number] ####[facility] LABORATORYCLIA [id number] [address] WBC Manual cnt (CSF) [#/Vol] 14 cells/uL High 0-5 [facility] Comment on above: Order Comment: Speci men Type: CEREBROSPINAL FLUIDOrdering Facility: [facility] Address: [address] [place] [address] Performed By: #### L [id number], 44914-3, [id number] ####[facility] LABORATORYCLIA [id number] [address] OF [facility] Glucose CSF-ncon 2 Glucose (CSF) [Mass/Vol] 64 mg/dL Normal 40-70 [facility] Comment on above: Order Comment: Speci men Type: CEREBROSPINAL FLUIDOrdering Facility: [facility] Address: [address] [place] [address] Result Comment: Lumb ar CSF glucose values of healthy patients are approximately 60% of the plasma values and must always be compared with a concurrently measured plasma value for adequate clinical interpretation.References: 1. Glucose HK (GLUC3) [package insert V 12.0 [place]e]. [employer], [place], [place]. September 2015. 2. Michelle Mooer, Loki, H. (2015). Chapter 7: Glucose and Lactate. Marianela Rothman.(eds.), Cerebrospinal Fluid in Clinical Neurology. [employer]: [employer]. Performed By: #### 2 342-4, 2880-3 ####[facility] LABORATORYCLIA [id number] [address] [place] NUTRITIONon 07-27-2021 NUTRITION Normal [facility] Prot CSF-mCncon 07-27-2021 Protein (CSF) [Mass/Vol] 58 mg/dL High 15-45 [facility] Comment on above: Order Comment: Speci men Type: CEREBROSPINAL FLUIDOrdering Facility: [facility] Address: [address] [place] [address] Performed By: #### 2 342-4, 2880-3 ####[facility] LABORATORYCLIA [id number] [address] aPTT PPPon 07-27-2021 aPTT Coag (PPP) [Time] 68.4 s High 23.0-32.4 [facility] Comment on above: Order Comment: Speci men Type: BLOOD SPECIMENOrdering Facility: [facility] Address: [address] [place] [address] Performed By: #### 1 4979-9 ####[facility] LABORATORYCLIA [id number] [address] aPTT Coag (PPP) [Time] 51.3 s High 23.0-32.4 [facility] Comment on above: Order Comment: Speci men Type: BLOOD SPECIMENOrdering Facility: [facility] Address: [address] [place] [address] Performed By: #### 1 4979-9 ####[facility] LABORATORYCLIA [id number] [address] ALLIED HEALTHon 07-26-2021 ALLIED HEALTH HNO ID: [id number] Author: Stephanie Maldonado, matte cutter Service: Radiology Author Type: Sr. Manager Type: Allied Health Filed: 07/26/2021 4:10 PM Note Text: Spoke with nurse. Pt getting new EVD today. Try tomorrow. Normal [facility] Bacteria CSF Culton 07-27-19 Bacteria identified Cx Nom (CSF) Abnormal [facility] Comment on above: Performed By: #### 6 06-4 ####[facility]ORATORYCLIA [id number] [place] [address] [place] Basic metabolic 2000 panelon 07-26-2021 Anion gap [Moles/Vol] 6 mmol/L Low 9-18 [facility] Comment on above: Order Comment: Speci men Type: BLOOD SPECIMENOrdering Facility: [facility] Address: [address] [place] [address] Performed By: #### 2 4321-2 ####[facility]ORATORYCLIA [id number] [place] [address] [place] Calcium [Mass/Vol] 9.2 mg/dL Normal 8.5-10.2 [facility] Comment on above: Order Comment: Speci men Type: BLOOD SPECIMENOrdering Facility: [facility] Address: [address] [place] [address] Performed By: #### 2 4321-2 ####[facility] LABORATORYCLIA [id number] [address] [place] Chloride [Moles/Vol] 99 mmol/L Normal 97-105 [facility] Comment on above: Order Comment: Speci men Type: BLOOD SPECIMENOrdering Facility: [facility] Address: [address] [place] [address] Performed By: #### 2 4321-2 ####[facility]ORATORYCLIA [id number] [place] [address] [place] CO2 [Moles/Vol] 32 mmol/L High 22-30 [facility] Comment on above: Order Comment: Speci men Type: BLOOD SPECIMENOrdering Facility: [facility] Address: [address] [place] [address] Performed By: #### 2 4321-2 ####[facility]ORATORYCLIA [id number] [place] [address] [place] Creatinine [Mass/Vol] 0.74 mg/dL Normal 0.73-1.22 [facility] Comment on above: Order Comment: Speci men Type: BLOOD SPECIMENOrdering Facility: [facility] Address: [address] [address] Performed By: #### 2 4321-2 ####[facility] CRAWFORDSVILLEIA [id number] [place] [id number] [facility] ESTIMATED GLOMERULAR FILTRATION RATE 98 mL/min/1.73m??? Normal >=60 [facility] Comment on above: Order Comment: Shira feldman Type: BLOOD SPECIMENOrdering Facility: [facility] Address: [address] [place] [address] Result Comment: Luzmaria mated Glomerular Filtration Rate [...] Performed By: #### 2 4321-2 ####[facility] CRAWFORDSVILLEIA [id number] [place] [address] [place] Glucose [Mass/Vol] 126 mg/dL High 74-99 [facility] Comment on above: Order Comment: Shira feldman Type: BLOOD SPECIMENOrdering Facility: [facility] Address: [address] [place] [address] Result Comment: The [place] Diabetes [employer] (ADA) provides guidance for cutoff [...] Standards of Medical Care in Diabetes 2016, [place] [employer]. Diabetes Care. 2016.39(Suppl 1). Performed By: #### 2 4321-2 ####[facility] LABORATORYIA [id number] [place] [address] [place] Potassium [Moles/Vol] 4.2 mmol/L Normal 3.7-5.1 [facility] Comment on above: Order Comment: Speci men Type: BLOOD SPECIMENOrdering Facility: [facility] Address: [address] [place] [address] Performed By: #### 2 4321-2 ####[facility] LABORATORYCLIA [id number] [address] [place] Sodium [Moles/Vol] 137 mmol/L Normal 136-144 [facility] Comment on above: Order Comment: Speci men Type: BLOOD SPECIMENOrdering Facility: [facility] Address: [address] [place] [address] Performed By: #### 2 4321-2 ####[facility] LABORATORYCLIA [id number] [address] [place] Urea nitrogen [Mass/Vol] 36 mg/dL High 9-24 [facility] Comment on above: Order Comment: Speci men Type: BLOOD SPECIMENOrdering Facility: [facility] Address: [address] [place] [address] Performed By: #### 2 4321-2 ####[facility] LABORATORYCLIA [id number] [address] [place] CBC W Auto Differential pane l (Bld)on 07-26-2021 Basophils (Bld) [#/Vol] 0.04 10*3/uL Normal <0.11 [facility] Comment on above: Order Comment: Speci men Type: BLOOD SPECIMENOrdering Facility: [facility] Address: [address] [place] [address] Performed By: #### 5 7021-8 ####[facility] LABORATORYCLIA [id number] [address] Basophils/100 WBC (Bld) 0.4 % Normal [facility] Comment on above: Order Comment: Speci men Type: BLOOD SPECIMENOrdering Facility: [facility] Address: [address] [address] Performed By: #### 5 7021-8 ####[facility] LABORATORYCLIA [id number] [address] [place] Differential cell count method Nom (Bld) Auto Normal [facility] Comment on above: Order Comment: Speci men Type: BLOOD SPECIMENOrdering Facility: [facility] Address: [address] [place] [address] Performed By: #### 5 7021-8 ####[facility] LABORATORYCLIA [id number] [place] [address] [place] Eosinophils (Bld) [#/Vol] 0.63 10*3/uL High <0.46 [facility] Comment on above: Order Comment: Speci men Type: BLOOD SPECIMENOrdering Facility: [facility] Address: [address] [place] [address] Performed By: #### 5 7021-8 ####[facility] LABORATORYCLIA [id number] [address] [place] Eosinophils/100 WBC (Bld) 5.8 % Normal [facility] Comment on above: Order Comment: Speci men Type: BLOOD SPECIMENOrdering Facility: [facility] Address: [address] [place] [address] Performed By: #### 5 7021-8 ####[facility] LABORATORYCLIA [id number] [address] [place] Erythrocyte distribution width (RBC) [Ratio] 16.8 % High 11.5-15.0 [facility] Comment on above: Order Comment: Speci men Type: BLOOD SPECIMENOrdering Facility: [facility] Address: [address] [place] [address] Performed By: #### 5 7021-8 ####[facility] LABORATORYCLIA [id number] [address] [place] Hematocrit (Bld) [Volume fraction] 31.2 % Low 39.0-51.0 [facility] Comment on above: Order Comment: Speci men Type: BLOOD SPECIMENOrdering Facility: [facility] Address: [address] [place] [address] Performed By: #### 5 7021-8 ####[facility] LABORATORYCLIA [id number] [address] [place] Hemoglobin (Bld) [Mass/Vol] 9.1 g/dL Low 13.0-17.0 [facility] Comment on above: Order Comment: Speci men Type: BLOOD SPECIMENOrdering Facility: [facility] Address: [address] [place] [address] Performed By: #### 5 7021-8 ####[facility] LABORATORYCLIA [id number] [address] IMMATURE GRAN % 0.6 % Normal [facility] Comment on above: Order Comment: Speci men Type: BLOOD SPECIMENOrdering Facility: [facility] Address: [address] [place] [address] Performed By: #### 5 7021-8 ####[facility] LABORATORYCLIA [id number] [address] IMMATURE GRAN ABS 0.07 k/uL Normal <0.10 [facility] Comment on above: Order Comment: Speci men Type: BLOOD SPECIMENOrdering Facility: [facility] Address: [address] [place] [address] Performed By: #### 5 7021-8 ####[facility] LABORATORYCLIA [id number] [address] [place] Lymphocytes (Bld) [#/Vol] 2.16 10*3/uL Normal 1.00-4.00 [facility] Comment on above: Order Comment: Speci men Type: BLOOD SPECIMENOrdering Facility: [facility] Address: [address] [place] [address] Performed By: #### 5 7021-8 ####[facility] LABORATORYCLIA [id number] [address] Lymphocytes/100 WBC (Bld) 20.0 % Normal [facility] Comment on above: Order Comment: Speci men Type: BLOOD SPECIMENOrdering Facility: [facility] Address: [address] [place] [address] Performed By: #### 5 7021-8 ####[facility] LABORATORYCLIA [id number] [address] STATES OF [facility] MCH (RBC) [Entitic mass] 27.7 pg Normal 26.0-34.0 [facility] Comment on above: Order Comment: Speci men Type: BLOOD SPECIMENOrdering Facility: [facility] Address: [address] [place] [address] Performed By: #### 5 7021-8 ####[facility] LABORATORYCLIA [id number] [address] [place] MCHC (RBC) [Mass/Vol] 29.2 g/dL Low 30.5-36.0 [facility] Comment on above: Order Comment: Speci men Type: BLOOD SPECIMENOrdering Facility: [facility] Address: [address] [place] [address] Performed By: #### 5 7021-8 ####[facility] LABORATORYCLIA [id number] [address] MCV (RBC) [Entitic vol] 95.1 fL Normal 80.0-100.0 [facility] Comment on above: Order Comment: Speci men Type: BLOOD SPECIMENOrdering Facility: [facility] Address: [address] [place] [address] Performed By: #### 5 7021-8 ####[facility]ORATORYCLIA [id number] [address] Monocytes (Bld) [#/Vol] 0.63 10*3/uL Normal <0.87 [facility] Comment on above: Order Comment: Speci men Type: BLOOD SPECIMENOrdering Facility: [facility] Address: [address] [place] [address] Performed By: #### 5 7021-8 ####[facility]ATORYCLIA [id number] [address] [place] Monocytes/100 WBC (Bld) 5.8 % Normal [facility] Comment on above: Order Comment: Speci men Type: BLOOD SPECIMENOrdering Facility: [facility] Address: [address] [place] [address] Performed By: #### 5 7021-8 ####[facility] LABORATORYCLIA [id number] [address] [place] Neutrophils (Bld) [#/Vol] 7.25 10*3/uL Normal 1.45-7.50 [facility] Comment on above: Order Comment: Speci men Type: BLOOD SPECIMENOrdering Facility: [facility] Address: [address] [place] [address] Performed By: #### 5 7021-8 ####[facility]ORATORYCLIA [id number] [address] Neutrophils/100 WBC (Bld) 67.4 % Normal [facility] Comment on above: Order Comment: Speci men Type: BLOOD SPECIMENOrdering Facility: [facility] Address: [address] [place] [address] Performed By: #### 5 7021-8 ####[facility]ATORYCLIA [id number] [address] [place] Nucleated RBC (Bld) [#/Vol] 10*3/uL Normal <0.01 [facility] Comment on above: Order Comment: Speci men Type: BLOOD SPECIMENOrdering Facility: [facility] Address: [address] [place] [address] Performed By: #### 5 7021-8 ####[facility]ATORYCLIA [id number] [address] [place] Nucleated RBC/100 WBC (Bld) [Ratio] 0.0 /100 WBC Normal [facility] Comment on above: Order Comment: Speci men Type: BLOOD SPECIMENOrdering Facility: [facility] Address: [address] Performed By: #### 5 7021-8 ####[facility] LABORATORYCLIA [id number] [address] Platelet mean volume (Bld) [Entitic vol] 11.2 fL Normal 9.0-12.7 [facility] Comment on above: Order Comment: Speci men Type: BLOOD SPECIMENOrdering Facility: [facility] Address: [address] [place] [address] Performed By: #### 5 7021-8 ####[facility] LABORATORYCLIA [id number] [address] OF [facility] Platelets (Bld) [#/Vol] 245 10*3/uL Normal 150-400 [facility] Comment on above: Order Comment: Speci men Type: BLOOD SPECIMENOrdering Facility: [facility] Address: [address] [place] [address] Performed By: #### 5 7021-8 ####[facility]ORATORYCLIA [id number] [address] [place] RBC (Bld) [#/Vol] 3.28 10*6/uL Low 4.20-6.00 [facility] Comment on above: Order Comment: Speci men Type: BLOOD SPECIMENOrdering Facility: [facility] Address: [address] [place], [place] [address] Performed By: #### 5 7021-8 ####[facility] LABORATORYCLIA [id number] [address] OF [place] WBC (Bld) [#/Vol] 10.78 10*3/uL Normal 3.70-11.00 [facility] Comment on above: Order Comment: Speci men Type: BLOOD SPECIMENOrdering Facility: [facility] Address: [address] [place] [address] Performed By: #### 5 7021-8 ####[facility] LABORATORYCLIA [id number] [address] [facility] CSF MANUAL DIFFon 07-26-2021 DIF TTL, CSF 100 cells counted Normal [facility] Comment on above: Order Comment: Speci men Type: CEREBROSPINAL FLUIDOrdering Facility: [facility] Address: [address] [place] [address] Performed By: #### 3 4563-7, [id number], [id number] ####[facility]ATORYCLIA [id number] [place] [address] [place] LYMPH%, CSF 26 % Low 50-90 [facility] Comment on above: Order Comment: Speci men Type: CEREBROSPINAL FLUIDOrdering Facility: [facility] Address: [address] [place] [address] Performed By: #### 3 4563-7, [id number], [id number] ####[facility]ATORYCLIA [id number] [place] [address] [place] MACRO%, CSF 10 % High <1 [facility] Comment on above: Order Comment: Speci men Type: CEREBROSPINAL FLUIDOrdering Facility: [facility] Address: [address] [place] [address] Performed By: #### 3 4563-7, [id number], [id number] ####[facility]ATORYCLIA [id number] [place] [address] [place] MONO%, CSF 20 % Normal 10-50 [facility] Comment on above: Order Comment: Speci men Type: CEREBROSPINAL FLUIDOrdering Facility: [facility] Address: [address] [address] Performed By: #### 3 4563-7, [id number], [id number] ####[facility]ORYCLIA [id number] [address] [place] NEUT%, CSF 40 % High 0-3 [facility] Comment on above: Order Comment: Speci men Type: CEREBROSPINAL FLUIDOrdering Facility: [facility] Address: [address] [place] [address] Performed By: #### 3 4563-7, [id number], [id number] ####[facility] LABORATORYCLIA [id number] [place] [address] [place] OTHER CL%, CSF 2 % Normal [facility] Comment on above: Order Comment: Speci men Type: CEREBROSPINAL FLUIDOrdering Facility: [facility] Address: [address] [place] [address] Result Comment: Path review to follow. Performed By: #### 3 4563-7, [id number], [id number] ####[facility]ORATORYCLIA [id number] [place] [address] [place] REAC LYMPH %, CSF 2 % Normal [facility] Comment on above: Order Comment: Speci men Type: CEREBROSPINAL FLUIDOrdering Facility: [facility] Address: [address] [place] [address] Performed By: #### 3 4563-7, [id number], [id number] ####[facility] LABORATORYCLIA [id number] [address] CSF PATHOLOGIST INTERP (LAB REFLEX ORDER-NO BILL)on 07-26-2021 CSF STAFF REVIEW Negative for maligna nt cells. Rare bacteria present, cocci in pairs and chains. Correlation with CSF cultures is recommended. Normal [facility] Comment on above: Order Comment: Speci men Type: CEREBROSPINAL FLUIDOrdering Facility: [facility] Address: [address] [place] [address] Performed By: #### 3 4563-7, [id number], [id number] ####[facility]ORATORYCLIA [id number] [address] Pathologist name Reviewed by Amador Stevens MD [facility] Comment on above: Order Comment: Speci men Type: CEREBROSPINAL FLUIDOrdering Facility: [facility] Address: [address] [place] [address] Performed By: #### 3 4563-7, [id number], [id number] ####[facility]ORATORYCLIA [id number] [address] [place] Cell count panel (CSF)on Clarity (CSF) Slightly Cloudy Abnormal Clear [facility] Comment on above: Order Comment: Speci men Type: CEREBROSPINAL FLUIDOrdering Facility: [facility] Address: [address] [place] [address] Performed By: #### 3 4563-7, [id number], [id number] ####[facility]ORYCLIA [id number] [address] Clarity (Unsp spec) Clear Normal Clear [facility] Comment on above: Order Comment: Speci men Type: CEREBROSPINAL FLUIDOrdering Facility: [facility] Address: [address] [place] [address] Performed By: #### 3 4563-7, [id number], [id number] ####[facility]ORATORYCLIA [id number] [address] Color (CSF) Colorless Normal Colorless [facility] Comment on above: Order Comment: Speci men Type: CEREBROSPINAL FLUIDOrdering Facility: [facility] Address: [address] [place] [address] Performed By: #### 3 4563-7, [id number], [id number] ####[facility]ATORYCLIA [id number] [address] Color (Spun CSF) Not Indicated Normal Colorless [facility] Comment on above: Order Comment: Speci men Type: CEREBROSPINAL FLUIDOrdering Facility: [facility] Address: [address] [address] Performed By: #### 3 4563-7, [id number], [id number] ####[facility]ORYCLIA [id number] [address] CSF TU[employer] Normal [facility] Comment on above: Order Comment: Speci men Type: CEREBROSPINAL FLUIDOrdering Facility: [facility] Address: [address] [place] [address] Performed By: #### 3 4563-7, [id number], [id number] ####[facility]ORATORYCLIA [id number] [address] RBC Manual cnt (CSF) [#/Vol] 1 cells/uL Normal 0-5 [facility] Comment on above: Order Comment: Speci men Type: CEREBROSPINAL FLUIDOrdering Facility: [facility] Address: [address] [place] [address] Performed By: #### 3 4563-7, [id number], [id number] ####[facility]ORATORYCLIA [id number] [address] WBC Manual cnt (CSF) [#/Vol] 50 cells/uL High 0-5 [facility] Comment on above: Order Comment: Speci men Type: CEREBROSPINAL FLUIDOrdering Facility: [facility] Address: [address] [place] [address] Performed By: #### 3 4563-7, [id number], [id number] ####[facility]NACLIA [id number] [address] Glucose CSF-ncon 2 Glucose (CSF) [Mass/Vol] 64 mg/dL Normal 40-70 [facility] Comment on above: Order Comment: Speci men Type: CEREBROSPINAL FLUIDOrdering Facility: [facility] Address: [address] [place] [address] Result Comment: Lumb ar CSF glucose values of healthy patients are approximately 60% of the plasma values and must always be compared with a concurrently measured plasma value for adequate clinical interpretation.References: 1. Glucose HK (GLUC3) [package insert V 12.0 Nep[place]e]. [employer], [place], [place]. September 2015. 2. Teresa HGarfield, He, H. (2015). Chapter 7: Glucose and Lactate. Marianela Rothman.(eds.), Cerebrospinal Fluid in Clinical Neurology. [place]: [employer]. Performed By: #### 2 880-3, 2342-4 ####[facility] LABORATORYCLIA [id number] [address] [place] Magnesium SerPl-mCncon 07-26 Magnesium [Mass/Vol] 2.3 mg/dL Normal 1.7-2.3 [facility] Comment on above: Order Comment: Speci men Type: BLOOD SPECIMENOrdering Facility: [facility] Address: [address] [place] [address] Performed By: #### 1 9123-9, 2777-1, 3016-3 ####[facility]ORATORYCLIA [id number] [address] [place] NURSING PROGon 07-26-2021 NURSING PROG Normal [facility] Phosphate SerPl-mCncon 07-26 Phosphate [Mass/Vol] 2.6 mg/dL Low 2.7-4.8 [facility] Comment on above: Order Comment: Speci men Type: BLOOD SPECIMENOrdering Facility: [facility] Address: [address] [place] [address] Performed By: #### 1 9123-9, 2777-1, 3016-3 ####[facility]ORATORYCLIA [id number] [address] OF [place] Prot CSF-mCncon 07-26-2021 Protein (CSF) [Mass/Vol] 64 mg/dL High 15-45 [facility] Comment on above: Order Comment: Speci men Type: CEREBROSPINAL FLUIDOrdering Facility: [facility] Address: [address] [place] [address] Performed By: #### 2 880-3, 2342-4 ####[facility]ORATORYCLIA [id number] [address] [place] THERAPY NTon 07-26-2021 THERAPY NT Normal [facility] TSH SerPl-aCncon 07-26-2021 TSH Qn 1.470 m[IU]/L Normal 0.270-4.200 [facility] Comment on above: Order Comment: Speci men Type: BLOOD SPECIMENOrdering Facility: [facility] Address: [address] [place] [address] Performed By: #### 1 9123-9, 2777-1, 3016-3 ####[facility]ORATORYCLIA [id number] [address] [facility] VITAMIN B12 BLOODon 07-27-19 22 Cobalamin (Vitamin B12) [Mass/Vol] 934 pg/mL Normal 232-1,245 [facility] Comment on above: Order Comment: Speci men Type: BLOOD SPECIMENOrdering Facility: [facility] Address: [address] [place] [address] Performed By: #### B 12 ####[facility]ORATORYCLIA [id number] [address] [place] aPTT PPPon 07-26-2021 aPTT Coag (PPP) [Time] 53.6 s High 23.0-32.4 [facility] Comment on above: Order Comment: Speci men Type: BLOOD SPECIMENOrdering Facility: [facility] Address: [address] [place] [address] Performed By: #### 1 4979-9 ####[facility]ORATORYCLIA [id number] [address] aPTT Coag (PPP) [Time] 44.9 s High 23.0-32.4 [facility] Comment on above: Order Comment: Speci men Type: BLOOD SPECIMENOrdering Facility: [facility] Address: [address] [place] [address] Performed By: #### 1 4979-9 ####[facility]ORATORYCLIA [id number] [address] [place] ALLIED HEALTHon 07-25-2021 ALLIED HEALTH HNO ID: [id number] Author: RT Rajwinder(R) Service: Radiology Author Type: Technologist Type: Allied Health Filed: 07/25/2021 1:37 PM Note Text: Called floor for MRI screening form [id number] Normal [facility] Bacteria Bld Culton 07-26-19 22 Bacteria identified Cx Nom (Bld) CULTURE, BLOOD: No growth 5 days Normal [facility] Comment on above: Performed By: #### 6 00-7 ####[facility]ORATORYCLIA [id number] [address] Bacteria identified Cx Nom (Bld) CULTURE, BLOOD: No growth 5 days Normal [facility] Comment on above: Performed By: #### 6 00-7 ####[facility]ORATORYCLIA [id number] [address] [place] CASE MANAGEMon 07-25-2021 CASE MANAGEM Normal [facility] CBC W Auto Differential pane l (Bld)on 07-25-2021 Basophils (Bld) [#/Vol] 0.06 10*3/uL Normal <0.11 [facility] Comment on above: Order Comment: Speci men Type: BLOOD SPECIMENOrdering Facility: [facility] Address: [address] [place] [address] Performed By: #### 5 7021-8 ####[facility]ORATORYCLIA [id number] [address] [place] Basophils/100 WBC (Bld) 0.6 % Normal [facility] Comment on above: Order Comment: Speci men Type: BLOOD SPECIMENOrdering Facility: [facility] Address: [address] [place] [address] Performed By: #### 5 7021-8 ####[facility]ORATORYCLIA [id number] [address] [place] Differential cell count method Nom (Bld) Auto Normal [facility] Comment on above: Order Comment: Speci men Type: BLOOD SPECIMENOrdering Facility: [facility] Address: [address] [place] [address] Performed By: #### 5 7021-8 ####[facility]ORATORYCLIA [id number] [address] [place] Eosinophils (Bld) [#/Vol] 0.26 10*3/uL Normal <0.46 [facility] Comment on above: Order Comment: Speci men Type: BLOOD SPECIMENOrdering Facility: [facility] Address: [address] [place] [address] Performed By: #### 5 7021-8 ####[facility]ATORYCLIA [id number] [address] Eosinophils/100 WBC (Bld) 2.5 % Normal [facility] Comment on above: Order Comment: Speci men Type: BLOOD SPECIMENOrdering Facility: [facility] Address: [address] [place] [address] Performed By: #### 5 7021-8 ####[facility]ORATORYCLIA [id number] [address] Erythrocyte distribution width (RBC) [Ratio] 16.9 % High 11.5-15.0 [facility] Comment on above: Order Comment: Speci men Type: BLOOD SPECIMENOrdering Facility: [facility] Address: [address] [place] [address] Performed By: #### 5 7021-8 ####[facility]ORATORYCLIA [id number] [address] Hematocrit (Bld) [Volume fraction] 29.6 % Low 39.0-51.0 [facility] Comment on above: Order Comment: Speci men Type: BLOOD SPECIMENOrdering Facility: [facility] Address: [address] [place] [address] Performed By: #### 5 7021-8 ####[facility]ORATORYCLIA [id number] [address] Hemoglobin (Bld) [Mass/Vol] 8.8 g/dL Low 13.0-17.0 [facility] Comment on above: Order Comment: Speci men Type: BLOOD SPECIMENOrdering Facility: [facility] Address: [address] [place] [address] Performed By: #### 5 7021-8 ####[facility]ORATORYCLIA [id number] [address] IMMATURE GRAN % 0.6 % Normal [facility] Comment on above: Order Comment: Speci men Type: BLOOD SPECIMENOrdering Facility: [facility] Address: [address] [place] [address] Performed By: #### 5 7021-8 ####[facility]ORATORYCLIA [id number] [address] [place] IMMATURE GRAN ABS 0.06 k/uL Normal <0.10 [facility] Comment on above: Order Comment: Speci men Type: BLOOD SPECIMENOrdering Facility: [facility] Address: [address] [place] [address] Performed By: #### 5 7021-8 ####[facility]ORATORYCLIA [id number] [address] Lymphocytes (Bld) [#/Vol] 2.15 10*3/uL Normal 1.00-4.00 [facility] Comment on above: Order Comment: Speci men Type: BLOOD SPECIMENOrdering Facility: [facility] Address: [address] [place] [address] Performed By: #### 5 7021-8 ####[facility]ORATORYCLIA [id number] [address] Lymphocytes/100 WBC (Bld) 20.7 % Normal [facility] Comment on above: Order Comment: Speci men Type: BLOOD SPECIMENOrdering Facility: [facility] Address: [address] [place] [address] Performed By: #### 5 7021-8 ####[facility]ORATORYCLIA [id number] [address] [place] MCH (RBC) [Entitic mass] 28.2 pg Normal 26.0-34.0 [facility] Comment on above: Order Comment: Speci men Type: BLOOD SPECIMENOrdering Facility: [facility] Address: [address] [place] [address] Performed By: #### 5 7021-8 ####[facility]ORYCLIA [id number] [address] STATES [facility] MCHC (RBC) [Mass/Vol] 29.7 g/dL Low 30.5-36.0 [facility] Comment on above: Order Comment: Speci men Type: BLOOD SPECIMENOrdering Facility: [facility] Address: [address] [place] [address] Performed By: #### 5 7021-8 ####[facility]ORATORYCLIA [id number] [address] [place] MCV (RBC) [Entitic vol] 94.9 fL Normal 80.0-100.0 [facility] Comment on above: Order Comment: Speci men Type: BLOOD SPECIMENOrdering Facility: [facility] Address: [address] [place] [address] Performed By: #### 5 7021-8 ####[facility]ORATORYCLIA [id number] [address] Monocytes (Bld) [#/Vol] 0.62 10*3/uL Normal <0.87 [facility] Comment on above: Order Comment: Speci men Type: BLOOD SPECIMENOrdering Facility: [facility] Address: [address] [place] [address] Performed By: #### 5 7021-8 ####[facility]ORATORYCLIA [id number] [address] Monocytes/100 WBC (Bld) 6.0 % Normal [facility] Comment on above: Order Comment: Speci men Type: BLOOD SPECIMENOrdering Facility: [facility] Address: [address] [place] [address] Performed By: #### 5 7021-8 ####[facility]ORATORYCLIA [id number] [address] [place] Neutrophils (Bld) [#/Vol] 7.25 10*3/uL Normal 1.45-7.50 [facility] Comment on above: Order Comment: Speci men Type: BLOOD SPECIMENOrdering Facility: [facility] Address: [address] [address] Performed By: #### 5 7021-8 ####[facility]ATORYCLIA [id number] [address] Neutrophils/100 WBC (Bld) 69.6 % Normal [facility] Comment on above: Order Comment: Speci men Type: BLOOD SPECIMENOrdering Facility: [facility] Address: [address] [address] Performed By: #### 5 7021-8 ####[facility] LABORATORYCLIA [id number] [address] [place] Nucleated RBC (Bld) [#/Vol] 10*3/uL Normal <0.01 [facility] Comment on above: Order Comment: Speci men Type: BLOOD SPECIMENOrdering Facility: [facility] Address: [address] [place] [address] Performed By: #### 5 7021-8 ####[facility]ORATORYCLIA [id number] [address] Nucleated RBC/100 WBC (Bld) [Ratio] 0.0 /100 WBC Normal [facility] Comment on above: Order Comment: Speci men Type: BLOOD SPECIMENOrdering Facility: [facility] Address: [address] [address] Performed By: #### 5 7021-8 ####[facility] LABORATORYCLIA [id number] [address] [place] Platelet mean volume (Bld) [Entitic vol] 11.3 fL Normal 9.0-12.7 [facility] Comment on above: Order Comment: Speci men Type: BLOOD SPECIMENOrdering Facility: [facility] Address: [facility] [address] Performed By: #### 5 7021-8 ####[facility]ORATORYCLIA [id number] [address] [place] Platelets (Bld) [#/Vol] 243 10*3/uL Normal 150-400 [facility] Comment on above: Order Comment: Speci men Type: BLOOD SPECIMENOrdering Facility: [facility] Address: [address] [place] [address] Performed By: #### 5 7021-8 ####[facility] LABORATORYCLIA [id number] [address] STATES OF [facility] RBC (Bld) [#/Vol] 3.12 10*6/uL Low 4.20-6.00 [facility] Comment on above: Order Comment: Speci men Type: BLOOD SPECIMENOrdering Facility: [facility] Address: [address] [place] [address] Performed By: #### 5 7021-8 ####[facility] LABORATORYCLIA [id number] [address] WBC (Bld) [#/Vol] 10.40 10*3/uL Normal 3.70-11.00 [facility] Comment on above: Order Comment: Speci men Type: BLOOD SPECIMENOrdering Facility: [facility] Address: [address] [place] [address] Performed By: #### 5 7021-8 ####[facility] LABORATORYCLIA [id number] [address] CONSULT PROGon 07-25-2021 CONSULT PROG Normal [facility] MYCOPLASMA PNEUM IGMon 07-25 M. PNEUMO IGM, QUAL Negative Normal Negative [facility] Comment on above: Order Comment: Speci [facility] Type: BLOOD SPECIMENOrdering Facility: [facility] Address: [address] [place] [address] Result Comment: Myco plasma pneumoniae IgM antibody test is used as an aid in diagnosis of recent infection with M. pneumoniae. It may occasionally remain elevated for extended periods after an acute infection. Cannot exclude recent infection if the specimen collected 7-10 days after onset of signs and symptoms. Clinical correlation is required. Performed By: #### M YCOPM ####[facility] LABCLIA [id number] [address] [place] NURSING PROGon 07-25-2021 NURSING PROG Normal [facility] THERAPY NTon 07-25-2021 THERAPY NT Normal [facility] THERAPY NT Normal [facility] aPTT PPPon 07-25-2021 aPTT Coag (PPP) [Time] 62.6 s High 23.0-32.4 [facility] Comment on above: Order Comment: Speci men Type: BLOOD SPECIMENOrdering Facility: [facility] Address: [address] [place] [address] Performed By: #### 1 [id number] ####[facility] LABORATORYCLIA [id number] [address] Bacteria Ur Culton Bacteria identified Cx Nom (U) CULTURE, URINE: No growth (<100 CFU/ml) Normal [facility] Comment on above: Performed By: #### 6 30-4 ####[facility] LABORATORYCLIA [id number] [address] [place] Basic metabolic 2000 panelon 07-24-2021 Anion gap [Moles/Vol] 13 mmol/L Normal 9-18 [facility] Comment on above: Order Comment: Speci men Type: BLOOD SPECIMENOrdering Facility: [facility] Address: [address] [place] [address] Performed By: #### 1 9123-9, PROCAL, 2777-1, 42265-6 ####[facility] LABORATORYCLIA [id number] [place] [address] [place] Calcium [Mass/Vol] 9.5 mg/dL Normal 8.5-10.2 [facility] Comment on above: Order Comment: Speci men Type: BLOOD SPECIMENOrdering Facility: [facility] Address: [address] [place] [address] Performed By: #### 1 9123-9, PROCAL, 2777-1, 37110-4 ####[facility] LABORATORYCLIA [id number] [place] [address] [place] Chloride [Moles/Vol] 102 mmol/L Normal 97-105 [facility] Comment on above: Order Comment: Speci men Type: BLOOD SPECIMENOrdering Facility: [facility] Address: [address] [place] [address] Performed By: #### 1 9123-9, PROCAL, 2777-1, 18785-5 ####[facility] LABORATORYCLIA [id number] [address] STATES OF [facility] CO2 [Moles/Vol] 28 mmol/L Normal 22-30 [facility] Comment on above: Order Comment: Speci men Type: BLOOD SPECIMENOrdering Facility: [facility] Address: [address] [place] [address] Performed By: #### 1 9123-9, PROCAL, 2777-1, 30688-1 ####[facility] LABORATORYCLIA [id number] [address] Creatinine [Mass/Vol] 0.86 mg/dL Normal 0.73-1.22 [facility] Comment on above: Order Comment: Speci men Type: BLOOD SPECIMENOrdering Facility: [facility] Address: [address] [place] [address] Performed By: #### 1 9123-9, PROCAL, 2777-1, 74191-1 ####[facility] LABORATORYCLIA [id number] [address] ESTIMATED GLOMERULAR FILTRATION RATE 94 mL/min/1.73m??? Normal >=60 [facility] Comment on above: Order Comment: Speci men Type: BLOOD SPECIMENOrdering Facility: [facility] Address: [address] [place] [address] Result Comment: Luzmaria mated Glomerular Filtration Rate [...] Performed By: #### 1 9123-9, PROCAL, 2777-1, 22140-4 ####[facility] LABORATORYCLIA [id number] [place] [address] [place] Glucose [Mass/Vol] 148 mg/dL High 74-99 [facility] Comment on above: Order Comment: Speci men Type: BLOOD SPECIMENOrdering Facility: [facility] Address: [address] [place] [address] Result Comment: The [place] [employer] (ADA) provides guidance for cutoff [...] Standards of Medical Care in Diabetes 2016, [place] [employer]. Diabetes Care. 2016.39(Suppl 1). Performed By: #### 1 9123-9, PROCNM, 2776-, 16634-9 ####[facility]ORATORYCLIA [id number] [place] [address] [place] Potassium [Moles/Vol] 4.0 mmol/L Normal 3.7-5.1 [facility] Comment on above: Order Comment: Speci men Type: BLOOD SPECIMENOrdering Facility: [facility] Address: [address] [id number] Performed By: #### 1 9123-9, PROCAL, 2777-1, 42910-6 ####[facility] LABORATORYCLIA [id number] [place] [address] [place] Sodium [Moles/Vol] 143 mmol/L Normal 136-144 [facility] Comment on above: Order Comment: Speci men Type: BLOOD SPECIMENOrdering Facility: [facility] Address: [address] [phone] Performed By: #### 1 9123-9, PROCAL, 2777-1, 40751-9 ####[facility] LABORATORYCLIA [id number] [address] STATES [facility] Urea nitrogen [Mass/Vol] 38 mg/dL High 9-24 [facility] Comment on above: Order Comment: Speci men Type: BLOOD SPECIMENOrdering Facility: [facility] Address: [address] [place] [address] Performed By: #### 1 9123-9, PROCAL, 2777-1, 23132-3 ####[facility]ORATORYCLIA [id number] [address] [place] [facility] CBC W Auto Differential pane l (Bld)on 07-24-2021 Basophils (Bld) [#/Vol] 0.06 10*3/uL Normal <0.11 [facility] Comment on above: Order Comment: Speci men Type: BLOOD SPECIMENOrdering Facility: [facility] Address: [address] [place] [address] Performed By: #### 5 7021-8 ####[facility] LABORATORYCLIA [id number] [address] [place] Basophils/100 WBC (Bld) 0.6 % Normal [facility] Comment on above: Order Comment: Speci men Type: BLOOD SPECIMENOrdering Facility: [facility] Address: [address] [place] [address] Performed By: #### 5 7021-8 ####[facility]ORATORYCLIA [id number] [address] Differential cell count method Nom (Bld) Auto Normal [facility] Comment on above: Order Comment: Speci men Type: BLOOD SPECIMENOrdering Facility: [facility] Address: [address] [address] Performed By: #### 5 7021-8 ####[facility] LABORATORYCLIA [id number] [address] [place] Eosinophils (Bld) [#/Vol] 0.03 10*3/uL Normal <0.46 [facility] Comment on above: Order Comment: Speci men Type: BLOOD SPECIMENOrdering Facility: [facility] Address: [address] [place] [address] Performed By: #### 5 7021-8 ####[facility] LABORATORYCLIA [id number] [address] Eosinophils/100 WBC (Bld) 0.3 % Normal [facility] Comment on above: Order Comment: Speci men Type: BLOOD SPECIMENOrdering Facility: [facility] Address: [address] [place] [address] Performed By: #### 5 7021-8 ####[facility] LABORATORYCLIA [id number] [address] Erythrocyte distribution width (RBC) [Ratio] 17.0 % High 11.5-15.0 [facility] Comment on above: Order Comment: Speci men Type: BLOOD SPECIMENOrdering Facility: [facility] Address: [address] [place] [address] Performed By: #### 5 7021-8 ####[facility] LABORATORYCLIA [id number] [address] Hematocrit (Bld) [Volume fraction] 30.5 % Low 39.0-51.0 [facility] Comment on above: Order Comment: Speci men Type: BLOOD SPECIMENOrdering Facility: [facility] Address: [address] [place] [address] Performed By: #### 5 7021-8 ####[facility]ORATORYCLIA [id number] [address] [place] Hemoglobin (Bld) [Mass/Vol] 9.0 g/dL Low 13.0-17.0 [facility] Comment on above: Order Comment: Speci men Type: BLOOD SPECIMENOrdering Facility: [facility] Address: [address] [place] [address] Performed By: #### 5 7021-8 ####[facility]ORATORYCLIA [id number] [address] IMMATURE GRAN % 0.5 % Normal [facility] Comment on above: Order Comment: Speci men Type: BLOOD SPECIMENOrdering Facility: [facility] Address: [address] [place] [address] Performed By: #### 5 7021-8 ####[facility]ORATORYCLIA [id number] [address] IMMATURE GRAN ABS 0.05 k/uL Normal <0.10 [facility] Comment on above: Order Comment: Speci men Type: BLOOD SPECIMENOrdering Facility: [facility] Address: [address] [place] [address] Performed By: #### 5 7021-8 ####[facility] LABORATORYCLIA [id number] [address] Lymphocytes (Bld) [#/Vol] 1.68 10*3/uL Normal 1.00-4.00 [facility] Comment on above: Order Comment: Speci men Type: BLOOD SPECIMENOrdering Facility: [facility] Address: [address] [place] [address] Performed By: #### 5 7021-8 ####[facility] LABORATORYCLIA [id number] [address] Lymphocytes/100 WBC (Bld) 16.2 % Normal [facility] Comment on above: Order Comment: Speci men Type: BLOOD SPECIMENOrdering Facility: [facility] Address: [address] [place] [address] Performed By: #### 5 7021-8 ####[facility] LABORATORYCLIA [id number] [address] MCH (RBC) [Entitic mass] 27.4 pg Normal 26.0-34.0 [facility] Comment on above: Order Comment: Speci men Type: BLOOD SPECIMENOrdering Facility: [facility] Address: [address] [place] [address] Performed By: #### 5 7021-8 ####[facility] LABORATORYCLIA [id number] [address] STATES OF [facility] MCHC (RBC) [Mass/Vol] 29.5 g/dL Low 30.5-36.0 [facility] Comment on above: Order Comment: Speci men Type: BLOOD SPECIMENOrdering Facility: [facility] Address: [address] [place] [address] Performed By: #### 5 7021-8 ####[facility] LABORATORYCLIA [id number] [address] [place] MCV (RBC) [Entitic vol] 93.0 fL Normal 80.0-100.0 [facility] Comment on above: Order Comment: Speci men Type: BLOOD SPECIMENOrdering Facility: [facility] Address: [address] [place] [address] Performed By: #### 5 7021-8 ####[facility] LABORATORYCLIA [id number] [address] [place] Monocytes (Bld) [#/Vol] 0.63 10*3/uL Normal <0.87 [facility] Comment on above: Order Comment: Speci men Type: BLOOD SPECIMENOrdering Facility: [facility] Address: [address] [place] [address] Performed By: #### 5 7021-8 ####[facility] LABORATORYCLIA [id number] [address] Monocytes/100 WBC (Bld) 6.1 % Normal [facility] Comment on above: Order Comment: Speci men Type: BLOOD SPECIMENOrdering Facility: [facility] Address: [address] [place] [address] Performed By: #### 5 7021-8 ####[facility] LABORATORYCLIA [id number] [address] [place] Neutrophils (Bld) [#/Vol] 7.91 10*3/uL High 1.45-7.50 [facility] Comment on above: Order Comment: Speci men Type: BLOOD SPECIMENOrdering Facility: [facility] Address: [address] [place] [address] Performed By: #### 5 7021-8 ####[facility] LABORATORYCLIA [id number] [address] Neutrophils/100 WBC (Bld) 76.3 % Normal [facility] Comment on above: Order Comment: Speci men Type: BLOOD SPECIMENOrdering Facility: [facility] Address: [address] [place] [address] Performed By: #### 5 7021-8 ####[facility]ORATORYCLIA [id number] [address] [place] Nucleated RBC (Bld) [#/Vol] 10*3/uL Normal <0.01 [facility] Comment on above: Order Comment: Speci men Type: BLOOD SPECIMENOrdering Facility: [facility] Address: [address] [place] [address] Performed By: #### 5 7021-8 ####[facility] LABORATORYCLIA [id number] [address] STATES [facility] Nucleated RBC/100 WBC (Bld) [Ratio] 0.0 /100 WBC Normal [facility] Comment on above: Order Comment: Speci men Type: BLOOD SPECIMENOrdering Facility: [facility] Address: [address] [place] [address] Performed By: #### 5 7021-8 ####[facility] LABORATORYCLIA [id number] [place] [address] [place] Platelet mean volume (Bld) [Entitic vol] 11.1 fL Normal 9.0-12.7 [facility] Comment on above: Order Comment: Speci men Type: BLOOD SPECIMENOrdering Facility: [facility] Address: [address] [place] [address] Performed By: #### 5 7021-8 ####[facility]ORATORYCLIA [id number] [place] [address] [place] Platelets (Bld) [#/Vol] 285 10*3/uL Normal 150-400 [facility] Comment on above: Order Comment: Speci men Type: BLOOD SPECIMENOrdering Facility: [facility] Address: [address] [place] [address] Performed By: #### 5 7021-8 ####[facility] LABORATORYCLIA [id number] [place] [address] [place] RBC (Bld) [#/Vol] 3.28 10*6/uL Low 4.20-6.00 [facility] Comment on above: Order Comment: Speci men Type: BLOOD SPECIMENOrdering Facility: [facility] Address: [address] [place] [address] Performed By: #### 5 7021-8 ####[facility] LABORATORYCLIA [id number] [address] STATES OF [facility] WBC (Bld) [#/Vol] 10.36 10*3/uL Normal 3.70-11.00 [facility] Comment on above: Order Comment: Speci men Type: BLOOD SPECIMENOrdering Facility: [facility] Address: [address] [place] [address] Performed By: #### 5 7021-8 ####[facility] LABORATORYCLIA [id number] [address] [place] Legionella Ag Ur Qlon 2021 Legionella sp Ag Ql (U) Negative Normal Negative [facility] Comment on above: Order Comment: Speci men Type: URINE SPECIMENOrdering Facility: [facility] Address: [address] [place] [address] Performed By: #### 3 2781-7 ####[facility] LABORATORYCLIA [id number] [address] [place] Magnesium SerPl-mCncon 07-24 Magnesium [Mass/Vol] 2.3 mg/dL Normal 1.7-2.3 [facility] Comment on above: Order Comment: Speci men Type: BLOOD SPECIMENOrdering Facility: [facility] Address: [address] [place] [address] Performed By: #### 1 9123-9, PROCNM, 7-, 77646-0 ####[facility]ORATORYCLIA [id number] [address] [place] NURSING PROGon 07-24-2021 NURSING PROG Normal [facility] PROCALCITONIN (LAB)on 2021 Procalcitonin [Mass/Vol] 0.15 ng/mL High <0.09 [facility] Comment on above: Order Comment: Speci men Type: BLOOD SPECIMENOrdering Facility: [facility] Address: [address] [place] [address] Result Comment: For a guided interpretation of test results, please visit the Change in Procalcitonin Calculator, [email or web address]. Performed By: #### 1 9123-9, [facility], 2776-05, 77780-1 ####[facility] LABORATORYCLIA [id number] [address] STATES OF [facility] Phosphate SerPl-mCncon 07-24 Phosphate [Mass/Vol] 3.9 mg/dL Normal 2.7-4.8 [facility] Comment on above: Order Comment: Speci men Type: BLOOD SPECIMENOrdering Facility: [facility] Address: [address] [place] [address] Performed By: #### 1 9123-9, [facility], 2776-, 00443-0 ####[facility] LABORATORYCLIA [id number] [address] [place] STREPTOCOCCUS PNEUMONIAE AGo n 07-24-2021 STREPTOCOCCUS PNEUMONIAE AG Normal [facility] Comment on above: Performed By: #### S PNAG ####[facility] LABORATORYCLIA [id number] [address] [place] aPTT PPPon 07-24-2021 aPTT Coag (PPP) [Time] 60.8 s High 23.0-32.4 [facility] Comment on above: Order Comment: Speci men Type: BLOOD SPECIMENOrdering Facility: [facility] Address: [address] [place] [address] Performed By: #### 1 4979-9 ####[facility]ORATORYCLIA [id number] [address] aPTT Coag (PPP) [Time] 38.2 s High 23.0-32.4 [facility] Comment on above: Order Comment: Speci men Type: BLOOD SPECIMENOrdering Facility: [facility] Address: [address] [place] [address] Performed By: #### 1 4979-9 ####[facility] LABORATORYCLIA [id number] [address] aPTT Coag (PPP) [Time] 35.9 s High 23.0-32.4 [facility] Comment on above: Order Comment: Speci men Type: BLOOD SPECIMENOrdering Facility: [facility] Address: [address] [place] [address] Performed By: #### 1 4979-9 ####[facility]ORATORYCLIA [id number] [address] aPTT Coag (PPP) [Time] 28.8 s Normal 23.0-32.4 [facility] Comment on above: Order Comment: Speci men Type: BLOOD SPECIMENOrdering Facility: [facility] Address: [address] [place] [address] Performed By: #### 1 4979-9 ####[facility] LABORATORYCLIA [id number] [address] OF [facility] ALLIED HEALTHon 07-23-2021 ALLIED HEALTH Normal [facility] ALLIED HEALTH Normal [facility] ALLIED HEALTH Normal [facility] ARTERIAL BLOOD GASESon 07-23 Base excess Calc (Bld) [Moles/Vol] 4 mmol/L High 0-2 [facility] Comment on above: Order Comment: Speci men Type: ARTERIAL BLOOD SPECIMENOrdering Facility: [facility] Address: [address] [place] [address] Performed By: #### A LLBG ####[facility] LABORATORYCLIA [id number] [address] Body temperature 100.58 [degF] Normal [facility] Comment on above: Order Comment: Speci men Type: ARTERIAL BLOOD SPECIMENOrdering Facility: [facility] Address: [address] [place] [address] Performed By: #### A LLBG ####[facility] LABORATORYCLIA [id number] [address] STATES OF [facility] CALCIUM IONIZED, PH CORRECTED 1.26 mmol/L Normal 1.08-1.30 [facility] Comment on above: Order Comment: Speci men Type: ARTERIAL BLOOD SPECIMENOrdering Facility: [facility] Address: [address] [place] [address] Performed By: #### A LLBG ####[facility] LABORATORYCLIA [id number] [address] STATES OF [facility] Calcium.ionized (BldV) [Mass/Vol] 1.25 mmol/L Normal 1.08-1.30 [facility] Comment on above: Order Comment: Speci men Type: ARTERIAL BLOOD SPECIMENOrdering Facility: [facility] Address: [address] [place] [address] Performed By: #### A LLBG ####[facility] LABORATORYCLIA [id number] [address] [place] Carboxyhemoglobin (BldA) [Mass fraction] 1.2 % Normal 0.0-2.0 [facility] Comment on above: Order Comment: Speci men Type: ARTERIAL BLOOD SPECIMENOrdering Facility: [facility] Address: [address] [place] [address] Result Comment: Carb oxyhemoglobin Reference Range for Smokers: 2.0-8.0% Performed By: #### A LLBG ####[facility]ORATORYCLIA [id number] [address] [place] CO2 (Bld) [Partial pressure] 46 mm Hg Normal 36-46 [facility] Comment on above: Order Comment: Speci men Type: ARTERIAL BLOOD SPECIMENOrdering Facility: [facility] Address: [address] [place] [address] Performed By: #### A LLBG ####[facility]ORATORYCLIA [id number] [place] [address] [place] CO2 [Moles/Vol] 27 mmol/L Normal 22-28 [facility] Comment on above: Order Comment: Speci men Type: ARTERIAL BLOOD SPECIMENOrdering Facility: [facility] Address: [address] [place] [address] Performed By: #### A LLBG ####[facility] LABORATORYCLIA [id number] [address] [place] CO2 adjusted to patient's actual temperature (Bld) [Partial pressure] 48 mmHg High 36-46 [facility] Comment on above: Order Comment: Speci men Type: ARTERIAL BLOOD SPECIMENOrdering Facility: [facility] Address: [address] [place] [address] Performed By: #### A LLBG ####[facility]ORATORYCLIA [id number] [place] [address] [place] Glucose [Mass/Vol] 134 mg/dL High 60-105 [facility] Comment on above: Order Comment: Speci men Type: ARTERIAL BLOOD SPECIMENOrdering Facility: [facility] Address: [address] [place] [address] Performed By: #### A LLBG ####[facility]ORATORYCLIA [id number] [place] [address] [place] HCO3 (Bld) [Moles/Vol] 29 mmol/L High 22-26 [facility] Comment on above: Order Comment: Speci men Type: ARTERIAL BLOOD SPECIMENOrdering Facility: [facility] Address: [address] [place] [address] Performed By: #### A LLBG ####[facility] LABORATORYCLIA [id number] [address] OF [facility] Hematocrit (Bld) [Volume fraction] 31.4 % Low 39.0-51.0 [facility] Comment on above: Order Comment: Speci men Type: ARTERIAL BLOOD SPECIMENOrdering Facility: [facility] Address: [address] [place] [address] Performed By: #### A LLBG ####[facility] LABORATORYCLIA [id number] [address] [place] Hemoglobin (Bld) [Mass/Vol] 10.2 g/dL Low 13.0-17.0 [facility] Comment on above: Order Comment: Speci men Type: ARTERIAL BLOOD SPECIMENOrdering Facility: [facility] Address: [address] [place] [address] Performed By: #### A LLBG ####[facility] LABORATORYCLIA [id number] [address] OF [facility] Methemoglobin (Bld) [Mass fraction] % Normal 0.0-1.5 [facility] Comment on above: Order Comment: Speci men Type: ARTERIAL BLOOD SPECIMENOrdering Facility: [facility] Address: [address] [place] [address] Performed By: #### A LLBG ####[facility] LABORATORYCLIA [id number] [address] [place] O2 THERAPY Ventilator Normal [facility] Comment on above: Order Comment: Speci men Type: ARTERIAL BLOOD SPECIMENOrdering Facility: [facility] Address: [address] [place] [address] Performed By: #### A LLBG ####[facility] LABORATORYCLIA [id number] [address] Oxygen (Bld) [Partial pressure] 113 mm Hg High 85-95 [facility] Comment on above: Order Comment: Speci men Type: ARTERIAL BLOOD SPECIMENOrdering Facility: [facility] Address: [address] [place] [address] Performed By: #### A LLBG ####[facility]ORATORYCLIA [id number] [address] Oxygen adjusted to patient's actual temperature (Bld) [Partial pressure] 119 mmHg High 85-95 [facility] Comment on above: Order Comment: Speci men Type: ARTERIAL BLOOD SPECIMENOrdering Facility: [facility] Address: [address] [place] [address] Performed By: #### A LLBG ####[facility] LABORATORYCLIA [id number] OXYGEN SATURATION, ARTERIAL 98 % Normal 95-98 [facility] Comment on above: Order Comment: Speci men Type: ARTERIAL BLOOD SPECIMENOrdering Facility: [facility] Address: [address] [place] [address] Performed By: #### A LLBG ####[facility] LABORATORYCLIA [id number] [address] Oxyhemoglobin (BldA) [Mass fraction] 96 % Normal 95-98 [facility] Comment on above: Order Comment: Speci men Type: ARTERIAL BLOOD SPECIMENOrdering Facility: [facility] Address: [address] [place] [address] Performed By: #### A LLBG ####[facility] LABORATORYCLIA [id number] [address] [place] pH (Bld) 7.41 [pH] Normal 7.35-7.45 [facility] Comment on above: Order Comment: Speci men Type: ARTERIAL BLOOD SPECIMENOrdering Facility: [facility] Address: [address] [place] [address] Performed By: #### A LLBG ####[facility] LABORATORYCLIA [id number] [address] [place] pH adjusted to patient's actual temperature (Bld) 7.40 Normal 7.35-7.45 [facility] Comment on above: Order Comment: Speci men Type: ARTERIAL BLOOD SPECIMENOrdering Facility: [facility] Address: [address] [place] [address] Performed By: #### A LLBG ####[facility]ORATORYCLIA [id number] [address] STATES OF [facility] Potassium [Moles/Vol] 4.3 mmol/L Normal 3.5-5.0 [facility] Comment on above: Order Comment: Speci men Type: ARTERIAL BLOOD SPECIMENOrdering Facility: [facility] Address: [address] [place] [address] Performed By: #### A LLBG ####[facility] LABORATORYCLIA [id number] [address] Sodium [Moles/Vol] 144 mmol/L Normal 136-144 [facility] Comment on above: Order Comment: Speci men Type: ARTERIAL BLOOD SPECIMENOrdering Facility: [facility] Address: [address] [place] [address] Performed By: #### A LLBG ####[facility] LABORATORYCLIA [id number] [address] OF [facility] Bacteria CSF Culton 07-24-19 22 Bacteria identified Cx Nom (CSF) Abnormal [facility] Comment on above: Performed By: #### 6 06-4 ####[facility] LABORATORYCLIA [id number] [address] [place] Basic metabolic 2000 panelon 07-23-2021 Anion gap [Moles/Vol] 12 mmol/L Normal 9-18 [facility] Comment on above: Order Comment: Speci men Type: BLOOD SPECIMENOrdering Facility: [facility] Address: [address] [place] [address] Performed By: #### 2 4321-2 ####[facility]ATORYCLIA [id number] [address] [place] Calcium [Mass/Vol] 9.7 mg/dL Normal 8.5-10.2 [facility] Comment on above: Order Comment: Speci men Type: BLOOD SPECIMENOrdering Facility: [facility] Address: [address] [place] [address] Performed By: #### 2 4321-2 ####[facility] LABORATORYCLIA [id number] [place] [address] [place] Chloride [Moles/Vol] 105 mmol/L Normal 97-105 [facility] Comment on above: Order Comment: Speci men Type: BLOOD SPECIMENOrdering Facility: [facility] Address: [address] [place] [address] Performed By: #### 2 4321-2 ####[facility] LABORATORYCLIA [id number] [place] [address] [place] CO2 [Moles/Vol] 28 mmol/L Normal 22-30 [facility] Comment on above: Order Comment: Speci men Type: BLOOD SPECIMENOrdering Facility: [facility] Address: [address] [place] [address] Performed By: #### 2 4321-2 ####[facility] LABORATORYCLIA [id number] [address] [place] Creatinine [Mass/Vol] 0.78 mg/dL Normal 0.73-1.22 [facility] Comment on above: Order Comment: Speci men Type: BLOOD SPECIMENOrdering Facility: [facility] Address: [address] [place] [address] Performed By: #### 2 4321-2 ####[facility] LABORATORYCLIA [id number] [address] ESTIMATED GLOMERULAR FILTRATION RATE 97 mL/min/1.73m??? Normal >=60 [facility] Comment on above: Order Comment: Speci men Type: BLOOD SPECIMENOrdering Facility: [facility] Address: [address] [place] [address] Result Comment: Luzmaria mated Glomerular Filtration Rate [...] actual GFR. Performed By: #### 2 4321-2 ####[facility] LABORATORYCLIA [id number] [place] [address] [place] Glucose [Mass/Vol] 127 mg/dL High 74-99 [facility] Comment on above: Order Comment: Shira feldman Type: BLOOD SPECIMENOrdering Facility: [facility] Address: [address] [address] Result Comment: The [place] [employer] (ADA) provides guidance for cutoff [...] Standards of Medical Care in Diabetes 2016, [place] [employer]. Diabetes Care. 2016.39(Suppl 1). Performed By: #### 2 4321-2 ####[facility] LABORATORYCLIA [id number] [place] [address] [place] Potassium [Moles/Vol] 4.3 mmol/L Normal 3.7-5.1 [facility] Comment on above: Order Comment: Shira feldman Type: BLOOD SPECIMENOrdering Facility: [facility] Address: [address] [address] Performed By: #### 2 4321-2 ####[facility] LABORATORYCLIA [id number] [place] [address] [place] Sodium [Moles/Vol] 145 mmol/L High 136-144 [facility] Comment on above: Order Comment: Shira feldman Type: BLOOD SPECIMENOrdering Facility: [facility] Address: [address] [id number] Performed By: #### 2 4321-2 ####[facility] LABORATORYCLIA [id number] [address] STATES [facility] Urea nitrogen [Mass/Vol] 37 mg/dL High 9-24 [facility] Comment on above: Order Comment: Speci men Type: BLOOD SPECIMENOrdering Facility: [facility] Address: [address] [place] [address] Performed By: #### 2 4321-2 ####[facility] LABORATORYCLIA [id number] [address] [place] C diff Tox gens Stl Ql MEGAN+p robeon 07-23-2021 C. difficile toxin genes MEGAN+probe Ql (Stl) Negative Normal Negative for C. difficile toxin by PCR [facility] Comment on above: Order Comment: Speci men Type: STOOL SPECIMENOrdering Facility: [facility] Address: [address] [place] [address] Performed By: #### 5 4067-4 ####[facility]ORATORYCLIA [id number] [address] [place] CBC W Auto Differential pane l (Bld)on 07-23-2021 Basophils (Bld) [#/Vol] 0.07 10*3/uL Normal <0.11 [facility] Comment on above: Order Comment: Speci men Type: BLOOD SPECIMENOrdering Facility: [facility] Address: [address] [place] [address] Performed By: #### 5 7021-8 ####[facility] LABORATORYCLIA [id number] [address] [place] Basophils/100 WBC (Bld) 0.5 % Normal [facility] Comment on above: Order Comment: Speci men Type: BLOOD SPECIMENOrdering Facility: [facility] Address: [address] [place] [address] Performed By: #### 5 7021-8 ####[facility]ORATORYCLIA [id number] Differential cell count method Nom (Bld) Auto Normal [facility] Comment on above: Order Comment: Speci men Type: BLOOD SPECIMENOrdering Facility: [facility] Address: [address] [place] [address] Performed By: #### 5 7021-8 ####[facility]ORATORYCLIA [id number] [address] Eosinophils (Bld) [#/Vol] 10*3/uL Normal <0.46 [facility] Comment on above: Order Comment: Speci men Type: BLOOD SPECIMENOrdering Facility: [facility] Address: [address] [place] [address] Performed By: #### 5 7021-8 ####[facility]ORATORYCLIA [id number] [address] Eosinophils/100 WBC (Bld) 0.2 % Normal [facility] Comment on above: Order Comment: Speci men Type: BLOOD SPECIMENOrdering Facility: [facility] Address: [address] [place] [address] Performed By: #### 5 7021-8 ####[facility]ORATORYCLIA [id number] [address] Erythrocyte distribution width (RBC) [Ratio] 16.7 % High 11.5-15.0 [facility] Comment on above: Order Comment: Speci men Type: BLOOD SPECIMENOrdering Facility: [facility] Address: [address] [place] [address] Performed By: #### 5 7021-8 ####[facility]ORATORYCLIA [id number] [address] Hematocrit (Bld) [Volume fraction] 32.8 % Low 39.0-51.0 [facility] Comment on above: Order Comment: Speci men Type: BLOOD SPECIMENOrdering Facility: [facility] Address: [address] [place] [address] Performed By: #### 5 7021-8 ####[facility]ORATORYCLIA [id number] [address] [place] Hemoglobin (Bld) [Mass/Vol] 9.7 g/dL Low 13.0-17.0 [facility] Comment on above: Order Comment: Speci men Type: BLOOD SPECIMENOrdering Facility: [facility] Address: [address] [place] [address] Performed By: #### 5 7021-8 ####[facility] LABORATORYCLIA [id number] [address] OF [facility] IMMATURE GRAN % 0.7 % Normal [facility] Comment on above: Order Comment: Speci men Type: BLOOD SPECIMENOrdering Facility: [facility] Address: [address] [place] [address] Performed By: #### 5 7021-8 ####[facility]ORATORYCLIA [id number] [address] IMMATURE GRAN ABS 0.09 k/uL Normal <0.10 [facility] Comment on above: Order Comment: Speci men Type: BLOOD SPECIMENOrdering Facility: [facility] Address: [address] [place] [address] Performed By: #### 5 7021-8 ####[facility]ORATORYCLIA [id number] [address] [place] Lymphocytes (Bld) [#/Vol] 1.94 10*3/uL Normal 1.00-4.00 [facility] Comment on above: Order Comment: Speci men Type: BLOOD SPECIMENOrdering Facility: [facility] Address: [address] [place] [address] Performed By: #### 5 7021-8 ####[facility]ORATORYCLIA [id number] [address] Lymphocytes/100 WBC (Bld) 14.6 % Normal [facility] Comment on above: Order Comment: Speci men Type: BLOOD SPECIMENOrdering Facility: [facility] Address: [address] [place] [address] Performed By: #### 5 7021-8 ####[facility]ORATORYCLIA [id number] [address] MCH (RBC) [Entitic mass] 27.2 pg Normal 26.0-34.0 [facility] Comment on above: Order Comment: Speci men Type: BLOOD SPECIMENOrdering Facility: [facility] Address: [address] [place] [address] Performed By: #### 5 7021-8 ####[facility]ORATORYCLIA [id number] [address] MCHC (RBC) [Mass/Vol] 29.6 g/dL Low 30.5-36.0 [facility] Comment on above: Order Comment: Speci men Type: BLOOD SPECIMENOrdering Facility: [facility] Address: [address] [place] [address] Performed By: #### 5 7021-8 ####[facility]ORATORYCLIA [id number] [address] STATES [facility] MCV (RBC) [Entitic vol] 92.1 fL Normal 80.0-100.0 [facility] Comment on above: Order Comment: Speci men Type: BLOOD SPECIMENOrdering Facility: [facility] Address: [address] [place] [address] Performed By: #### 5 7021-8 ####[facility]ORATORYCLIA [id number] [address] Monocytes (Bld) [#/Vol] 0.74 10*3/uL Normal <0.87 [facility] Comment on above: Order Comment: Speci men Type: BLOOD SPECIMENOrdering Facility: [facility] Address: [address] [place] [address] Performed By: #### 5 7021-8 ####[facility]ORATORYCLIA [id number] [address] Monocytes/100 WBC (Bld) 5.6 % Normal [facility] Comment on above: Order Comment: Speci men Type: BLOOD SPECIMENOrdering Facility: [facility] Address: [facility] [address] Performed By: #### 5 7021-8 ####[facility]ORATORYCLIA [id number] [address] [place] Neutrophils (Bld) [#/Vol] 10.43 10*3/uL High 1.45-7.50 [facility] Comment on above: Order Comment: Speci men Type: BLOOD SPECIMENOrdering Facility: [facility] Address: [address] [place] [address] Performed By: #### 5 7021-8 ####[facility]ORATORYCLIA [id number] [address] [place] Neutrophils/100 WBC (Bld) 78.4 % Normal [facility] Comment on above: Order Comment: Speci men Type: BLOOD SPECIMENOrdering Facility: [facility] Address: [address] [place] [address] Performed By: #### 5 7021-8 ####[facility]ORATORYCLIA [id number] [address] [place] Nucleated RBC (Bld) [#/Vol] 10*3/uL Normal <0.01 [facility] Comment on above: Order Comment: Speci men Type: BLOOD SPECIMENOrdering Facility: [facility] Address: [address] [place] [address] Performed By: #### 5 7021-8 ####[facility]ORATORYCLIA [id number] [address] [place] Nucleated RBC/100 WBC (Bld) [Ratio] 0.0 /100 WBC Normal [facility] Comment on above: Order Comment: Speci men Type: BLOOD SPECIMENOrdering Facility: [facility] Address: [address] [place] [address] Performed By: #### 5 7021-8 ####[facility]ORATORYCLIA [id number] [address] STATES OF [facility] Platelet mean volume (Bld) [Entitic vol] 11.0 fL Normal 9.0-12.7 [facility] Comment on above: Order Comment: Speci men Type: BLOOD SPECIMENOrdering Facility: [facility] Address: [address] [place] [address] Performed By: #### 5 7021-8 ####[facility]ORATORYCLIA [id number] [place] [address] [place] Platelets (Bld) [#/Vol] 381 10*3/uL Normal 150-400 [facility] Comment on above: Order Comment: Speci men Type: BLOOD SPECIMENOrdering Facility: [facility] Address: [address] [place] [address] Performed By: #### 5 7021-8 ####[facility]ORATORYCLIA [id number] [address] [place] RBC (Bld) [#/Vol] 3.56 10*6/uL Low 4.20-6.00 [facility] Comment on above: Order Comment: Speci men Type: BLOOD SPECIMENOrdering Facility: [facility] Address: [address] [place] [address] Performed By: #### 5 7021-8 ####[facility]ORATORYCLIA [id number] [address] [place] WBC (Bld) [#/Vol] 13.29 10*3/uL High 3.70-11.00 [facility] Comment on above: Order Comment: Speci men Type: BLOOD SPECIMENOrdering Facility: [facility] Address: [address] [place] [address] Performed By: #### 5 7021-8 ####[facility] LABORATORYCLIA [id number] [address] [place] CONSULT PROGon 07-23-2021 CONSULT PROG Normal [facility] CONSULT PROG Normal [facility] CSF MANUAL DIFFon 07-23-2021 DIF TTL, CSF 100 cells counted Normal [facility] Comment on above: Order Comment: Speci men Type: CEREBROSPINAL FLUIDOrdering Facility: [facility] Address: [address] [place] [address] Performed By: #### L [id number], [id number], 97089-2 ####[facility]ORATORYCLIA [id number] [place] [address] [place] LYMPH%, CSF 2 % Low 50-90 [facility] Comment on above: Order Comment: Speci men Type: CEREBROSPINAL FLUIDOrdering Facility: [facility] Address: [address] [place] [address] Performed By: #### L [id number], [id number], 46651-8 ####[facility]ATORYCLIA [id number] [place] [address] [place] MONO%, CSF 9 % Low 10-50 [facility] Comment on above: Order Comment: Speci men Type: CEREBROSPINAL FLUIDOrdering Facility: [facility] Address: [address] [place] [address] Performed By: #### L [id number], [id number], 50308-8 ####[facility]ATORYCLIA [id number] [place] [address] [place] NEUT%, CSF 89 % High 0-3 [facility] Comment on above: Order Comment: Speci men Type: CEREBROSPINAL FLUIDOrdering Facility: [facility] Address: [address] [place] [address] Performed By: #### L [id number], [id number], 50738-6 ####[facility]ORATORYCLIA [id number] [address] [place] CSF PATHOLOGIST INTERP (LAB REFLEX ORDER-NO BILL)on 07-23-2021 CSF STAFF REVIEW Negative for maligna nt cells. Numerous bacterial organisms present, cocci in pairs and chains. Recommend correlation with CSF culture results. Normal [facility] Comment on above: Order Comment: Speci men Type: CEREBROSPINAL FLUIDOrdering Facility: [facility] Address: [address] Performed By: #### L [id number], [id number], 42893-1 ####[facility]ORATORYCLIA [id number] [address] Pathologist name Reviewed by Amador Stevens MD Normal [facility] Comment on above: Order Comment: Speci men Type: CEREBROSPINAL FLUIDOrdering Facility: [facility] Address: [address] [place] [address] Performed By: #### L [id number], [id number], 44787-1 ####[facility]ORATORYCLIA [id number] [address] [place] CT BRAIN WO IVCONon 07-24-19 CT BRAIN WO IVCON Normal [facility] Cell count panel (CSF)on Clarity (CSF) Clear Normal Clear [facility] Comment on above: Order Comment: Speci men Type: CEREBROSPINAL FLUIDOrdering Facility: [facility] Address: [address] [place] [address] Performed By: #### L [id number], [id number], 39391-5 ####[facility] LABORATORYCLIA [id number] [address] OF [facility] Clarity (Unsp spec) Not Indicated Normal Clear [facility] Comment on above: Order Comment: Speci men Type: CEREBROSPINAL FLUIDOrdering Facility: [facility] Address: [facility] [address] Performed By: #### L [id number], [id number], 06843-1 ####[facility]ORATORYCLIA [id number] [address] Color (CSF) Colorless Normal Colorless [facility] Comment on above: Order Comment: Speci men Type: CEREBROSPINAL FLUIDOrdering Facility: [facility] Address: [address] [address] Performed By: #### L [id number], [id number], 24749-1 ####[facility]ATORYCLIA [id number] [address] Color (Spun CSF) Not Indicated Normal Colorless [facility] Comment on above: Order Comment: Speci men Type: CEREBROSPINAL FLUIDOrdering Facility: [facility] Address: [address] [place] [address] Performed By: #### L [id number], [id number], 04138-5 ####[facility] LABORATORYCLIA [id number] [address] CSF [employer] Normal [facility] Comment on above: Order Comment: Speci men Type: CEREBROSPINAL FLUIDOrdering Facility: [facility] Address: [address] [place] [address] Performed By: #### L [id number], [id number], 18213-6 ####[facility] LABORATORYCLIA [id number] [address] [place] RBC Manual cnt (CSF) [#/Vol] 7 cells/uL High 0-5 [facility] Comment on above: Order Comment: Speci men Type: CEREBROSPINAL FLUIDOrdering Facility: [facility] Address: [address] [place] [address] Performed By: #### L [id number], [id number], 39656-6 ####[facility]ORATORYCLIA [id number] [address] WBC Manual cnt (CSF) [#/Vol] 193 cells/uL High 0-5 [facility] Comment on above: Order Comment: Speci men Type: CEREBROSPINAL FLUIDOrdering Facility: [facility] Address: [address] [place] [address] Performed By: #### L [id number], [id number], 07184-0 ####[facility] LABORATORYCLIA [id number] [address] [place] Glucose CSF-mCncon 2 Glucose (CSF) [Mass/Vol] 81 mg/dL High 40-70 [facility] Comment on above: Order Comment: Speci men Type: CEREBROSPINAL FLUIDOrdering Facility: [facility] Address: [address] [address] Result Comment: Lumb ar CSF glucose values of healthy patients are approximately 60% of the plasma values and must always be compared with a concurrently measured plasma value for adequate clinical interpretation.References: 1. Glucose HK (GLUC3) [package insert V 12.0 [place]e]. [employer], [place], [place]. September 2015. 2. Michelle Moore, Loki HGarfield (2015). Chapter 7: Glucose and Lactate. Marianela Alcocer al.(eds.), Cerebrospinal Fluid in Clinical Neurology. [place]: [employer]. Performed By: #### 2 342-4, 2880-3 ####[facility] LABORATORYCLIA [id number] [address] [place] NURSING PROGon 07-23-2021 NURSING PROG Normal [facility] NURSING PROG Normal [facility] Prot CSF-mCncon 07-23-2021 Protein (CSF) [Mass/Vol] 68 mg/dL High 15-45 [facility] Comment on above: Order Comment: Speci men Type: CEREBROSPINAL FLUIDOrdering Facility: [facility] Address: [address] [place] [address] Performed By: #### 2 342-4, 2880-3 ####[facility] LABORATORYCLIA [id number] [address] [place] Urinalysis complete panel (U )on 07-23-2021 Bilirubin Ql (U) Negative Normal Negative [facility] Comment on above: Order Comment: Speci men Type: URINE SPECIMENOrdering Facility: [facility] Address: [address] [address] Performed By: #### 2 4356-8 ####[facility]ORATORYCLIA [id number] [address] [place] Clarity (Unsp spec) Clear Normal Clear [facility] Comment on above: Order Comment: Speci men Type: URINE SPECIMENOrdering Facility: [facility] Address: [address] [address] Performed By: #### 2 4356-8 ####[facility]ATORYCLIA [id number] [address] [place] Color (U) Light Yellow Normal yellow [facility] Comment on above: Order Comment: Speci men Type: URINE SPECIMENOrdering Facility: [facility] Address: [address] [place] [address] Performed By: #### 2 4356-8 ####[facility]ORATORYCLIA [id number] [address] Glucose Test strip (U) [Mass/Vol] Negative Normal Negative [facility] Comment on above: Order Comment: Speci men Type: URINE SPECIMENOrdering Facility: [facility] Address: [address] [place] [address] Performed By: #### 2 4356-8 ####[facility] LABORATORYCLIA [id number] [address] Hemoglobin Ql (U) Negative Normal Negative [facility] Comment on above: Order Comment: Speci men Type: URINE SPECIMENOrdering Facility: [facility] Address: [address] [place] [address] Performed By: #### 2 4356-8 ####[facility] LABORATORYCLIA [id number] [address] Ketones Ql (U) Negative Normal Negative [facility] Comment on above: Order Comment: Speci men Type: URINE SPECIMENOrdering Facility: [facility] Address: [address] [place] [address] Performed By: #### 2 4356-8 ####[facility]ORATORYCLIA [id number] [address] Leukocyte esterase Test strip Ql (U) Negative Normal Negative [facility] Comment on above: Order Comment: Speci men Type: URINE SPECIMENOrdering Facility: [facility] Address: [facility] [place] [address] Performed By: #### 2 4356-8 ####[facility]ORATORYCLIA [id number] [place] [address] [place] Nitrite Ql (U) Negative Normal Negative [facility] Comment on above: Order Comment: Speci men Type: URINE SPECIMENOrdering Facility: [facility] Address: [address] [place] [address] Performed By: #### 2 4356-8 ####[facility] LABORATORYCLIA [id number] [place] [address] [place] pH (U) 6.0 [pH] Normal 5.0-8.0 [facility] Comment on above: Order Comment: Speci men Type: URINE SPECIMENOrdering Facility: [facility] Address: [address] [place] [address] Performed By: #### 2 4356-8 ####[facility] LABORATORYCLIA [id number] [address] STATES [facility] Protein (U) [Mass/Vol] 1+ Abnormal Negative [facility] Comment on above: Order Comment: Speci men Type: URINE SPECIMENOrdering Facility: [facility] Address: [address] [place] [address] Performed By: #### 2 4356-8 ####[facility] LABORATORYCLIA [id number] [address] [place] RBC LM.HPF (Urine sed) [#/Area] 0-3 /HPF Normal 0-3 /HPF [facility] Comment on above: Order Comment: Speci men Type: URINE SPECIMENOrdering Facility: [facility] Address: [address] [place] [address] Performed By: #### 2 4356-8 ####[facility] LABORATORYCLIA [id number] [address] [place] Specific gravity (U) [Rel density] 1.018 Normal 1.005-1.030 [facility] Comment on above: Order Comment: Speci men Type: URINE SPECIMENOrdering Facility: [facility] Address: [address] [place] [address] Performed By: #### 2 4356-8 ####[facility] LABORATORYCLIA [id number] [address] Urobilinogen Ql (U) Normal Normal Negative [facility] Comment on above: Order Comment: Speci men Type: URINE SPECIMENOrdering Facility: [facility] Address: [address] [place] [address] Performed By: #### 2 4356-8 ####[facility] LABORATORYCLIA [id number] [address] WBC LM.HPF (Urine sed) [#/Area] 0-5 /HPF Normal 0-5 /HPF [facility] Comment on above: Order Comment: Speci men Type: URINE SPECIMENOrdering Facility: [facility] Address: [address] [place] [address] Performed By: #### 2 4356-8 ####[facility] LABORATORYCLIA [id number] [address] Vancomycin random [Mass/Vol] on 07-23-2021 Vancomycin [Mass/Vol] 12.9 ug/mL Normal 10.0-20.0 [facility] Comment on above: Order Comment: Speci men Type: BLOOD SPECIMENOrdering Facility: [facility] Address: [address] [place] [address] Result Comment: Refe rence ranges and high/low indicator flags are provided as general guidelines only. The treating physician must determine appropriate target levels/dosing based on the specific clinical situation. Performed By: #### 4 091-5 ####[facility] LABORATORYCLIA [id number] [address] [place] XR CHEST 1V FRONTALon 2021 XR CHEST 1V FRONTAL Normal [facility] XR CHEST 1V FRONTAL Normal [facility] aPTT PPPon 07-23-2021 aPTT Coag (PPP) [Time] 32.3 s Normal 23.0-32.4 [facility] Comment on above: Order Comment: Speci men Type: BLOOD SPECIMENOrdering Facility: [facility] Address: [address] [place] [address] Performed By: #### 1 4979-9 ####[facility] LABORATORYCLIA [id number] [address] aPTT Coag (PPP) [Time] 57.9 s High 23.0-32.4 [facility] Comment on above: Order Comment: Speci men Type: BLOOD SPECIMENOrdering Facility: [facility] Address: [address] [place] [address] Performed By: #### 1 4979-9 ####[facility] LABORATORYCLIA [id number] [address] aPTT Coag (PPP) [Time] 46.3 s High 23.0-32.4 [facility] Comment on above: Order Comment: Speci men Type: BLOOD SPECIMENOrdering Facility: [facility] Address: [address] [place] [address] Performed By: #### 1 4979-9 ####[facility] LABORATORYCLIA [id number] [place] [address] [place] Basic metabolic 2000 panelon 07-22-2021 Anion gap [Moles/Vol] 8 mmol/L Low - [facility] Comment on above: Order Comment: Speci men Type: BLOOD SPECIMENOrdering Facility: [facility] Address: [address] [place] [address] Performed By: #### 2 4321-2 ####[facility] LABORATORYCLIA [id number] [address] STATES OF [facility] Calcium [Mass/Vol] 9.5 mg/dL Normal 8.5-10.2 [facility] Comment on above: Order Comment: Speci men Type: BLOOD SPECIMENOrdering Facility: [facility] Address: [address] [place] [address] Performed By: #### 2 4321-2 ####[facility] LABORATORYCLIA [id number] [address] Chloride [Moles/Vol] 105 mmol/L Normal 97-105 [facility] Comment on above: Order Comment: Speci men Type: BLOOD SPECIMENOrdering Facility: [facility] Address: [address] [place] [address] Performed By: #### 2 4321-2 ####[facility] LABORATORYCLIA [id number] [address] CO2 [Moles/Vol] 32 mmol/L High 22-30 [facility] Comment on above: Order Comment: Speci men Type: BLOOD SPECIMENOrdering Facility: [facility] Address: [address] [place] [address] Performed By: #### 2 4321-2 ####[facility]NACLIA [id number] [address] Creatinine [Mass/Vol] 0.75 mg/dL Normal 0.73-1.22 [facility] Comment on above: Order Comment: Speci men Type: BLOOD SPECIMENOrdering Facility: [facility] Address: [address] [place] [address] Performed By: #### 2 4321-2 ####[facility] LABORATORYCLIA [id number] [address] ESTIMATED GLOMERULAR FILTRATION RATE 98 mL/min/1.73m??? Normal >=60 [facility] Comment on above: Order Comment: Speci men Type: BLOOD SPECIMENOrdering Facility: [facility] Address: [address] [place] [address] Result Comment: Luzmaria mated Glomerular Filtration Rate [...] actual GFR. Performed By: #### 2 4321-2 ####[facility] LABORATORYCLIA [id number] [place] [address] [place] Glucose [Mass/Vol] 128 mg/dL High 74-99 [facility] Comment on above: Order Comment: Speci men Type: BLOOD SPECIMENOrdering Facility: [facility] Address: [address] [place] [address] Result Comment: The [place] [employer] (ADA) provides guidance for cutoff [...] Standards of Medical Care in Diabetes 2016, [place] [employer]. Diabetes Care. 2016.39(Suppl 1). Performed By: #### 2 4321-2 ####[facility] LABORATORYCLIA [id number] [place] [address] [place] Potassium [Moles/Vol] 3.7 mmol/L Normal 3.7-5.1 [facility] Comment on above: Order Comment: Johni men Type: BLOOD SPECIMENOrdering Facility: [facility] Address: [address] [place] [address] Performed By: #### 2 4321-2 ####[facility] LABORATORYCLIA [id number] [place] [address] [place] Sodium [Moles/Vol] 145 mmol/L High 136-144 [facility] Comment on above: Order Comment: Speci men Type: BLOOD SPECIMENOrdering Facility: [facility] Address: [address] [place] [address] Performed By: #### 2 4321-2 ####[facility] LABORATORYCLIA [id number] [place] [address] [place] Urea nitrogen [Mass/Vol] 39 mg/dL High 9-24 [facility] Comment on above: Order Comment: Speci men Type: BLOOD SPECIMENOrdering Facility: [facility] Address: [address] [place] [address] Performed By: #### 2 4321-2 ####[facility] LABORATORYCLIA [id number] [address] [place] CASE MANAGEMon 07-22-2021 CASE MANAGEM Normal [facility] CBC W Auto Differential pane l (Bld)on 07-22-2021 Basophils (Bld) [#/Vol] 0.06 10*3/uL Normal <0.11 [facility] Comment on above: Order Comment: Speci men Type: BLOOD SPECIMENOrdering Facility: [facility] Address: [address] [place] [address] Performed By: #### 5 7021-8 ####[facility] LABORATORYCLIA [id number] [address] [place] Basophils/100 WBC (Bld) 0.5 % Normal [facility] Comment on above: Order Comment: Speci men Type: BLOOD SPECIMENOrdering Facility: [facility] Address: [address] [place] [address] Performed By: #### 5 7021-8 ####[facility] LABORATORYCLIA [id number] [address] [place] Differential cell count method Nom (Bld) Auto Normal [facility] Comment on above: Order Comment: Speci men Type: BLOOD SPECIMENOrdering Facility: [facility] Address: [address] [place] [address] Performed By: #### 5 7021-8 ####[facility] LABORATORYCLIA [id number] [place] [address] [place] Eosinophils (Bld) [#/Vol] 0.44 10*3/uL Normal <0.46 [facility] Comment on above: Order Comment: Speci men Type: BLOOD SPECIMENOrdering Facility: [facility] Address: [address] [place] [address] Performed By: #### 5 7021-8 ####[facility] LABORATORYCLIA [id number] [address] [place] Eosinophils/100 WBC (Bld) 3.9 % Normal [facility] Comment on above: Order Comment: Speci men Type: BLOOD SPECIMENOrdering Facility: [facility] Address: [address] [place] [address] Performed By: #### 5 7021-8 ####[facility] LABORATORYCLIA [id number] [address] STATES [facility] Erythrocyte distribution width (RBC) [Ratio] 17.0 % High 11.5-15.0 [facility] Comment on above: Order Comment: Speci men Type: BLOOD SPECIMENOrdering Facility: [facility] Address: [address] [place] [address] Performed By: #### 5 7021-8 ####[facility] LABORATORYCLIA [id number] [address] Hematocrit (Bld) [Volume fraction] 32.0 % Low 39.0-51.0 [facility] Comment on above: Order Comment: Speci men Type: BLOOD SPECIMENOrdering Facility: [facility] Address: [address] [place] [address] Performed By: #### 5 7021-8 ####[facility] LABORATORYCLIA [id number] [address] [place] Hemoglobin (Bld) [Mass/Vol] 9.3 g/dL Low 13.0-17.0 [facility] Comment on above: Order Comment: Speci men Type: BLOOD SPECIMENOrdering Facility: [facility] Address: [address] [place] [address] Performed By: #### 5 7021-8 ####[facility] LABORATORYCLIA [id number] [address] IMMATURE GRAN % 0.5 % Normal [facility] Comment on above: Order Comment: Speci men Type: BLOOD SPECIMENOrdering Facility: [facility] Address: [address] [place] [address] Performed By: #### 5 7021-8 ####[facility] LABORATORYCLIA [id number] [address] IMMATURE GRAN ABS 0.06 k/uL Normal <0.10 [facility] Comment on above: Order Comment: Speci men Type: BLOOD SPECIMENOrdering Facility: [facility] Address: [address] [place] [address] Performed By: #### 5 7021-8 ####[facility] LABORATORYCLIA [id number] [address] Lymphocytes (Bld) [#/Vol] 1.83 10*3/uL Normal 1.00-4.00 [facility] Comment on above: Order Comment: Speci men Type: BLOOD SPECIMENOrdering Facility: [facility] Address: [address] [place] [address] Performed By: #### 5 7021-8 ####[facility] LABORATORYCLIA [id number] [address] Lymphocytes/100 WBC (Bld) 16.1 % Normal [facility] Comment on above: Order Comment: Speci men Type: BLOOD SPECIMENOrdering Facility: [facility] Address: [address] [place] [address] Performed By: #### 5 7021-8 ####[facility] LABORATORYCLIA [id number] [address] MCH (RBC) [Entitic mass] 27.0 pg Normal 26.0-34.0 [facility] Comment on above: Order Comment: Speci men Type: BLOOD SPECIMENOrdering Facility: [facility] Address: [address] [place] [address] Performed By: #### 5 7021-8 ####[facility] LABORATORYCLIA [id number] [address] [place] MCHC (RBC) [Mass/Vol] 29.1 g/dL Low 30.5-36.0 [facility] Comment on above: Order Comment: Speci men Type: BLOOD SPECIMENOrdering Facility: [facility] Address: [address] [place] [address] Performed By: #### 5 7021-8 ####[facility] LABORATORYCLIA [id number] [address] [place] MCV (RBC) [Entitic vol] 92.8 fL Normal 80.0-100.0 [facility] Comment on above: Order Comment: Speci men Type: BLOOD SPECIMENOrdering Facility: [facility] Address: [address] [place] [address] Performed By: #### 5 7021-8 ####[facility] LABORATORYCLIA [id number] [address] [place] Monocytes (Bld) [#/Vol] 0.87 10*3/uL High <0.87 [facility] Comment on above: Order Comment: Speci men Type: BLOOD SPECIMENOrdering Facility: [facility] Address: [address] [place] [address] Performed By: #### 5 7021-8 ####[facility] LABORATORYCLIA [id number] [address] Monocytes/100 WBC (Bld) 7.6 % Normal [facility] Comment on above: Order Comment: Speci men Type: BLOOD SPECIMENOrdering Facility: [facility] Address: [address] [place] [address] Performed By: #### 5 7021-8 ####[facility] LABORATORYCLIA [id number] [address] [place] Neutrophils (Bld) [#/Vol] 8.12 10*3/uL High 1.45-7.50 [facility] Comment on above: Order Comment: Speci men Type: BLOOD SPECIMENOrdering Facility: [facility] Address: [address] [place] [address] Performed By: #### 5 7021-8 ####[facility] LABORATORYCLIA [id number] [address] STATES OF [facility] Neutrophils/100 WBC (Bld) 71.4 % Normal [facility] Comment on above: Order Comment: Speci men Type: BLOOD SPECIMENOrdering Facility: [facility] Address: [address] [place] [address] Performed By: #### 5 7021-8 ####[facility]ORATORYCLIA [id number] [address] [place] Nucleated RBC (Bld) [#/Vol] 10*3/uL Normal <0.01 [facility] Comment on above: Order Comment: Speci men Type: BLOOD SPECIMENOrdering Facility: [facility] Address: [address] [place] [address] Performed By: #### 5 7021-8 ####[facility] LABORATORYCLIA [id number] [address] [place] Nucleated RBC/100 WBC (Bld) [Ratio] 0.0 /100 WBC Normal [facility] Comment on above: Order Comment: Speci men Type: BLOOD SPECIMENOrdering Facility: [facility] Address: [address] [place] [address] Performed By: #### 5 7021-8 ####[facility] LABORATORYCLIA [id number] [address] [place] Platelet mean volume (Bld) [Entitic vol] 10.8 fL Normal 9.0-12.7 [facility] Comment on above: Order Comment: Speci men Type: BLOOD SPECIMENOrdering Facility: [facility] Address: [address] [place] [address] Performed By: #### 5 7021-8 ####[facility]ORATORYCLIA [id number] [address] [place] Platelets (Bld) [#/Vol] 362 10*3/uL Normal 150-400 [facility] Comment on above: Order Comment: Speci men Type: BLOOD SPECIMENOrdering Facility: [facility] Address: [address] [place] [address] Performed By: #### 5 7021-8 ####[facility] LABORATORYCLIA [id number] [address] STATES OF [facility] RBC (Bld) [#/Vol] 3.45 10*6/uL Low 4.20-6.00 [facility] Comment on above: Order Comment: Speci men Type: BLOOD SPECIMENOrdering Facility: [facility] Address: [address] [place] [address] Performed By: #### 5 7021-8 ####[facility] LABORATORYCLIA [id number] [address] OF [facility] WBC (Bld) [#/Vol] 11.38 10*3/uL High 3.70-11.00 [facility] Comment on above: Order Comment: Speci men Type: BLOOD SPECIMENOrdering Facility: [facility] Address: [address] [place] [address] Performed By: #### 5 7021-8 ####[facility] LABORATORYCLIA [id number] [address] OF [facility] Magnesium SerPl-mCncon 07-22 Magnesium [Mass/Vol] 2.3 mg/dL Normal 1.7-2.3 [facility] Comment on above: Order Comment: Speci men Type: BLOOD SPECIMENOrdering Facility: [facility] Address: [address] [place] [address] Performed By: #### 1 9123-9, 2777-1, 22278-2 ####[facility] LABORATORYCLIA [id number] [address] [place] NT-proBNP SerPl-mCncon 07-22 Natriuretic peptide.B prohormone N-Terminal [Mass/Vol] 328 pg/mL High <125 [facility] Comment on above: Order Comment: Speci men Type: BLOOD SPECIMENOrdering Facility: [facility] Address: [address] [place] [address] Performed By: #### 1 9123-9, 2777-1, 86870-1 ####[facility] LABORATORYCLIA [id number] [address] [place] NURSING PROGon 07-22-2021 NURSING PROG Normal [facility] NUTRITIONon 07-22-2021 NUTRITION Normal [facility] Phosphate SerPl-mCncon 07-22 Phosphate [Mass/Vol] 3.5 mg/dL Normal 2.7-4.8 [facility] Comment on above: Order Comment: Speci men Type: BLOOD SPECIMENOrdering Facility: [facility] Address: [address] [place] [address] Performed By: #### 1 9123-9, 2777-1, 63906-9 ####[facility] LABORATORYCLIA [id number] [address] THERAPY NTon 07-22-2021 THERAPY NT Normal [facility] THERAPY NT Normal [facility] aPTT PPPon 07-22-2021 aPTT Coag (PPP) [Time] 50.1 s High 23.0-32.4 [facility] Comment on above: Order Comment: Speci men Type: BLOOD SPECIMENOrdering Facility: [facility] Address: [address] [place] [address] Performed By: #### 1 4979-9 ####[facility] LABORATORYCLIA [id number] [address] [place] ALLIED HEALTHon 07-21-2021 ALLIED HEALTH Normal [facility] Bacteria Spec Resp Culton Bacteria identified Respiratory culture Nom (Unsp spec) Abnormal [facility] Comment on above: Performed By: #### 3 2355-0 ####[facility] LABORATORYCLIA [id number] [place] [address] [place] Basic metabolic 2000 panelon 07-21-2021 Anion gap [Moles/Vol] 9 mmol/L Normal - [facility] Comment on above: Order Comment: Speci men Type: BLOOD SPECIMENOrdering Facility: [facility] Address: [address] [address] Performed By: #### 1 9123-9, 27771, 11544-6 ####[facility] LABORATORYCLIA [id number] [place] [address] [place] Calcium [Mass/Vol] 9.9 mg/dL Normal 8.5-10.2 [facility] Comment on above: Order Comment: Speci men Type: BLOOD SPECIMENOrdering Facility: [facility] Address: [address] [place] [address] Performed By: #### 1 9123-9, 27711-04, 80873-9 ####[facility] LABORATORYCLIA [id number] [place] [address] [place] Chloride [Moles/Vol] 103 mmol/L Normal 97-105 [facility] Comment on above: Order Comment: Speci men Type: BLOOD SPECIMENOrdering Facility: [facility] Address: [address] [place] [address] Performed By: #### 1 9123-9, 27711-04, 35027-8 ####[facility] LABORATORYCLIA [id number] [place] [address] [place] CO2 [Moles/Vol] 33 mmol/L High 22-30 [facility] Comment on above: Order Comment: Speci men Type: BLOOD SPECIMENOrdering Facility: [facility] Address: [address] [address] Performed By: #### 1 9123-9, 2776-05, 54936-4 ####[facility] LABORATORYCLIA [id number] [place] [address] [place] Creatinine [Mass/Vol] 0.80 mg/dL Normal 0.73-1.22 [facility] Comment on above: Order Comment: Speci men Type: BLOOD SPECIMENOrdering Facility: [facility] Address: [address] [address] Performed By: #### 1 9123-9, 2771, 59436-6 ####[facility]RAWFORDSVILLEIA [id number] [place] [address] [place] ESTIMATED GLOMERULAR FILTRATION RATE 96 mL/min/1.73m??? Normal >=60 [facility] Comment on above: Order Comment: Shira feldman Type: BLOOD SPECIMENOrdering Facility: [facility] Address: [address] [place] [address] Result Comment: Luzmaria mated Glomerular Filtration Rate [...] GFR. Performed By: #### 1 9123-9, 2777-1, 54113-8 ####[facility] CRAWFORDSVILLEIA [id number] [place] [address] [place] Glucose [Mass/Vol] 148 mg/dL High 74-99 [facility] Comment on above: Order Comment: Shira feldman Type: BLOOD SPECIMENOrdering Facility: [facility] Address: [address] [place] [address] Result Comment: The [place] [employer] (ADA) provides guidance for cutoff [...] Standards of Medical Care in Diabetes 2016, [place] [employer]. Diabetes Care. 2016.39(Suppl 1). Performed By: #### 1 9123-9, 2777-1, 27919-2 ####[facility] [place] [id number] [place] [id number] [place] Potassium [Moles/Vol] 4.1 mmol/L Normal 3.7-5.1 [facility] Comment on above: Order Comment: Speci men Type: BLOOD SPECIMENOrdering Facility: [facility] Address: [address] [place] [address] Performed By: #### 1 9123-9, 2777-, 65077-8 ####[facility] LABORATORYCLIA [id number] [address] STATES OF [facility] Sodium [Moles/Vol] 145 mmol/L High 136-144 [facility] Comment on above: Order Comment: Speci men Type: BLOOD SPECIMENOrdering Facility: [facility] Address: [address] [place] [address] Performed By: #### 1 9123-9, 27711-04, 58388-2 ####[facility] LABORATORYCLIA [id number] [address] STATES [facility] Urea nitrogen [Mass/Vol] 40 mg/dL High 9-24 [facility] Comment on above: Order Comment: Speci men Type: BLOOD SPECIMENOrdering Facility: [facility] Address: [address] [place] [address] Performed By: #### 1 9123-9, 2777, 60993-6 ####[facility] LABORATORYCLIA [id number] [address] STATES OF [facility] CBC W Auto Differential pane l (Bld)on 07-21-2021 Basophils (Bld) [#/Vol] 0.06 10*3/uL Normal <0.11 [facility] Comment on above: Order Comment: Speci men Type: BLOOD SPECIMENOrdering Facility: [facility] Address: [address] [place] [address] Performed By: #### 5 7021-8 ####[facility] LABORATORYCLIA [id number] [address] Basophils/100 WBC (Bld) 0.4 % Normal [facility] Comment on above: Order Comment: Speci men Type: BLOOD SPECIMENOrdering Facility: [facility] Address: [address] [address] Performed By: #### 5 7021-8 ####[facility] LABORATORYCLIA [id number] [address] Differential cell count method Nom (Bld) Auto Normal [facility] Comment on above: Order Comment: Speci men Type: BLOOD SPECIMENOrdering Facility: [facility] Address: [address] [place] [address] Performed By: #### 5 7021-8 ####[facility] LABORATORYCLIA [id number] [address] [place] Eosinophils (Bld) [#/Vol] 0.04 10*3/uL Normal <0.46 [facility] Comment on above: Order Comment: Speci men Type: BLOOD SPECIMENOrdering Facility: [facility] Address: [address] [place] [address] Performed By: #### 5 7021-8 ####[facility] LABORATORYCLIA [id number] [address] Eosinophils/100 WBC (Bld) 0.3 % Normal [facility] Comment on above: Order Comment: Speci men Type: BLOOD SPECIMENOrdering Facility: [facility] Address: [address] [place] [address] Performed By: #### 5 7021-8 ####[facility] LABORATORYCLIA [id number] [address] Erythrocyte distribution width (RBC) [Ratio] 17.0 % High 11.5-15.0 [facility] Comment on above: Order Comment: Speci men Type: BLOOD SPECIMENOrdering Facility: [facility] Address: [address] [place] [address] Performed By: #### 5 7021-8 ####[facility] LABORATORYCLIA [id number] [address] [place] Hematocrit (Bld) [Volume fraction] 33.1 % Low 39.0-51.0 [facility] Comment on above: Order Comment: Speci men Type: BLOOD SPECIMENOrdering Facility: [facility] Address: [address] [place] [address] Performed By: #### 5 7021-8 ####[facility] LABORATORYCLIA [id number] [address] STATES OF [facility] Hemoglobin (Bld) [Mass/Vol] 9.7 g/dL Low 13.0-17.0 [facility] Comment on above: Order Comment: Speci men Type: BLOOD SPECIMENOrdering Facility: [facility] Address: [address] [place] [address] Performed By: #### 5 7021-8 ####[facility] LABORATORYCLIA [id number] [address] IMMATURE GRAN % 0.5 % Normal [facility] Comment on above: Order Comment: Speci men Type: BLOOD SPECIMENOrdering Facility: [facility] Address: [address] [place] [address] Performed By: #### 5 7021-8 ####[facility] LABORATORYCLIA [id number] [address] IMMATURE GRAN ABS 0.07 k/uL Normal <0.10 [facility] Comment on above: Order Comment: Speci men Type: BLOOD SPECIMENOrdering Facility: [facility] Address: [address] [place] [address] Performed By: #### 5 7021-8 ####[facility] LABORATORYCLIA [id number] [address] [place] Lymphocytes (Bld) [#/Vol] 1.99 10*3/uL Normal 1.00-4.00 [facility] Comment on above: Order Comment: Speci men Type: BLOOD SPECIMENOrdering Facility: [facility] Address: [address] [place] [address] Performed By: #### 5 7021-8 ####[facility] LABORATORYCLIA [id number] [address] Lymphocytes/100 WBC (Bld) 13.4 % Normal [facility] Comment on above: Order Comment: Speci men Type: BLOOD SPECIMENOrdering Facility: [facility] Address: [address] [place] [address] Performed By: #### 5 7021-8 ####[facility] LABORATORYCLIA [id number] [address] MCH (RBC) [Entitic mass] 27.2 pg Normal 26.0-34.0 [facility] Comment on above: Order Comment: Speci men Type: BLOOD SPECIMENOrdering Facility: [facility] Address: [address] [place] [address] Performed By: #### 5 7021-8 ####[facility] LABORATORYCLIA [id number] [address] [place] MCHC (RBC) [Mass/Vol] 29.3 g/dL Low 30.5-36.0 [facility] Comment on above: Order Comment: Speci men Type: BLOOD SPECIMENOrdering Facility: [facility] Address: [address] [place] [address] Performed By: #### 5 7021-8 ####[facility] LABORATORYCLIA [id number] [address] MCV (RBC) [Entitic vol] 92.7 fL Normal 80.0-100.0 [facility] Comment on above: Order Comment: Speci men Type: BLOOD SPECIMENOrdering Facility: [facility] Address: [address] [place] [address] Performed By: #### 5 7021-8 ####[facility] LABORATORYCLIA [id number] [address] Monocytes (Bld) [#/Vol] 1.10 10*3/uL High <0.87 [facility] Comment on above: Order Comment: Speci men Type: BLOOD SPECIMENOrdering Facility: [facility] Address: [address] [place] [address] Performed By: #### 5 7021-8 ####[facility]ORATORYCLIA [id number] [address] [place] Monocytes/100 WBC (Bld) 7.4 % Normal [facility] Comment on above: Order Comment: Speci men Type: BLOOD SPECIMENOrdering Facility: [facility] Address: [address] [place] [address] Performed By: #### 5 7021-8 ####[facility]ORATORYCLIA [id number] [place] [address] [place] Neutrophils (Bld) [#/Vol] 11.61 10*3/uL High 1.45-7.50 [facility] Comment on above: Order Comment: Speci men Type: BLOOD SPECIMENOrdering Facility: [facility] Address: [address] [place] [address] Performed By: #### 5 7021-8 ####[facility] LABORATORYCLIA [id number] [address] Neutrophils/100 WBC (Bld) 78.0 % Normal [facility] Comment on above: Order Comment: Speci men Type: BLOOD SPECIMENOrdering Facility: [facility] Address: [address] [place] [address] Performed By: #### 5 7021-8 ####[facility] LABORATORYCLIA [id number] [address] [place] Nucleated RBC (Bld) [#/Vol] 10*3/uL Normal <0.01 [facility] Comment on above: Order Comment: Speci men Type: BLOOD SPECIMENOrdering Facility: [facility] Address: [address] [place] [address] Performed By: #### 5 7021-8 ####[facility]ORATORYCLIA [id number] [address] [place] Nucleated RBC/100 WBC (Bld) [Ratio] 0.0 /100 WBC Normal [facility] Comment on above: Order Comment: Speci men Type: BLOOD SPECIMENOrdering Facility: [facility] Address: [address] [place], [place] [address] Performed By: #### 5 7021-8 ####[facility] LABORATORYCLIA [id number] [address] Platelet mean volume (Bld) [Entitic vol] 10.4 fL Normal 9.0-12.7 [facility] Comment on above: Order Comment: Speci men Type: BLOOD SPECIMENOrdering Facility: [facility] Address: [address] [place], [place] [address] Performed By: #### 5 7021-8 ####[facility] LABORATORYCLIA [id number] [address] [place] Platelets (Bld) [#/Vol] 396 10*3/uL Normal 150-400 [facility] Comment on above: Order Comment: Speci men Type: BLOOD SPECIMENOrdering Facility: [facility] Address: [address] [place] [address] Performed By: #### 5 7021-8 ####[facility] LABORATORYCLIA [id number] [address] [place] RBC (Bld) [#/Vol] 3.57 10*6/uL Low 4.20-6.00 [facility] Comment on above: Order Comment: Speci men Type: BLOOD SPECIMENOrdering Facility: [facility] Address: [address] [place], [place] [address] Performed By: #### 5 7021-8 ####[facility] LABORATORYCLIA [id number] [address] [place] WBC (Bld) [#/Vol] 14.87 10*3/uL High 3.70-11.00 [facility] Comment on above: Order Comment: Speci men Type: BLOOD SPECIMENOrdering Facility: [facility] Address: [address] [place] [address] Performed By: #### 5 7021-8 ####[facility] LABORATORYCLIA [id number] [address] [place] Gas and Carbon monoxide pane l (BldV)on 07-21-2021 Base excess Calc (BldV) [Moles/Vol] 7 mmol/L High 0-2 [facility] Comment on above: Order Comment: Speci men Type: VENOUS BLOOD SPECIMENOrdering Facility: [facility] Address: [address] [place] [address] Performed By: #### 2 4344-4 ####[facility] LABORATORYCLIA [id number] [address] [place] Body temperature 98.6 [degF] Normal [facility] Comment on above: Order Comment: Speci men Type: VENOUS BLOOD SPECIMENOrdering Facility: [facility] Address: [address] [place] [address] Performed By: #### 2 4344-4 ####[facility] LABORATORYCLIA [id number] [address] [place] CALCIUM IONIZED, PH CORRECTED 1.21 mmol/L Normal 1.08-1.30 [facility] Comment on above: Order Comment: Speci men Type: VENOUS BLOOD SPECIMENOrdering Facility: [facility] Address: [address] [place] [address] Performed By: #### 2 4344-4 ####[facility] LABORATORYCLIA [id number] [address] [place] Calcium.ionized (BldV) [Mass/Vol] 1.23 mmol/L Normal 1.08-1.30 [facility] Comment on above: Order Comment: Speci men Type: VENOUS BLOOD SPECIMENOrdering Facility: [facility] Address: [address] [place] [address] Performed By: #### 2 4344-4 ####[facility] LABORATORYCLIA [id number] [place] [address] [place] Carboxyhemoglobin (BldV) [Mass fraction] 2.3 % High 0.0-2.0 [facility] Comment on above: Order Comment: Speci men Type: VENOUS BLOOD SPECIMENOrdering Facility: [facility] Address: [address] [place] [address] Result Comment: Carb oxyhemoglobin Reference Range for Smokers: 2.0-8.0% Performed By: #### 2 4344-4 ####[facility]ORATORYCLIA [id number] [address] [place] CO2 (BldV) [Partial pressure] 58 mm[Hg] High 42-55 [facility] Comment on above: Order Comment: Speci men Type: VENOUS BLOOD SPECIMENOrdering Facility: [facility] Address: [address] [place] [address] Performed By: #### 2 4344-4 ####[facility] LABORATORYCLIA [id number] [place] [address] [place] CO2 [Moles/Vol] 31 mmol/L High 25-29 [facility] Comment on above: Order Comment: Speci men Type: VENOUS BLOOD SPECIMENOrdering Facility: [facility] Address: [address] [place] [address] Performed By: #### 2 4344-4 ####[facility] LABORATORYCLIA [id number] [place] [address] [place] Glucose [Mass/Vol] 146 mg/dL High 60-105 [facility] Comment on above: Order Comment: Speci men Type: VENOUS BLOOD SPECIMENOrdering Facility: [facility] Address: [address] [place] [address] Performed By: #### 2 4344-4 ####[facility] LABORATORYCLIA [id number] [place] [address] [place] HCO3 (Bld) [Moles/Vol] 33 mmol/L High 24-28 [facility] Comment on above: Order Comment: Speci men Type: VENOUS BLOOD SPECIMENOrdering Facility: [facility] Address: [address] [place] [address] Performed By: #### 2 4344-4 ####[facility]ORATORYCLIA [id number] [address] [place] Hematocrit (Bld) [Volume fraction] 30.1 % Low 39.0-51.0 [facility] Comment on above: Order Comment: Speci men Type: VENOUS BLOOD SPECIMENOrdering Facility: [facility] Address: [address] [address] Performed By: #### 2 4344-4 ####[facility] LABORATORYCLIA [id number] [address] [place] Hemoglobin (Bld) [Mass/Vol] 9.7 g/dL Low 13.0-17.0 [facility] Comment on above: Order Comment: Speci men Type: VENOUS BLOOD SPECIMENOrdering Facility: [facility] Address: [address] [place] [address] Performed By: #### 2 4344-4 ####[facility] LABORATORYCLIA [id number] [address] [place] Methemoglobin (Bld) [Mass fraction] % Normal 0.0-1.5 [facility] Comment on above: Order Comment: Speci men Type: VENOUS BLOOD SPECIMENOrdering Facility: [facility] Address: [address] [place] [address] Performed By: #### 2 4344-4 ####[facility] LABORATORYCLIA [id number] [address] O2 THERAPY NC = Nasal Cannula Normal [facility] Comment on above: Order Comment: Speci men Type: VENOUS BLOOD SPECIMENOrdering Facility: [facility] Address: [address] [place] [address] Performed By: #### 2 4344-4 ####[facility]ORATORYCLIA [id number] [address] Oxygen (BldV) [Partial pressure] 64 mm[Hg] High 35-45 [facility] Comment on above: Order Comment: Speci men Type: VENOUS BLOOD SPECIMENOrdering Facility: [facility] Address: [address] [place] [address] Performed By: #### 2 4344-4 ####[facility] LABORATORYCLIA [id number] [address] [place] Oxygen saturation in Blood 90 % High 60-85 [facility] Comment on above: Order Comment: Speci men Type: VENOUS BLOOD SPECIMENOrdering Facility: [facility] Address: [address] [place] [address] Performed By: #### 2 4344-4 ####[facility]ORATORYCLIA [id number] [address] [place] Oxyhemoglobin (BldV) [Mass fraction] 87 % High 60-85 [facility] Comment on above: Order Comment: Speci men Type: VENOUS BLOOD SPECIMENOrdering Facility: [facility] Address: [address] [place] [address] Performed By: #### 2 4344-4 ####[facility] LABORATORYCLIA [id number] [place] [address] [place] pH (BldV) 7.38 [pH] Normal 7.32-7.42 [facility] Comment on above: Order Comment: Speci men Type: VENOUS BLOOD SPECIMENOrdering Facility: [facility] Address: [address] [place] [address] Performed By: #### 2 4344-4 ####[facility]ORATORYCLIA [id number] [place] [address] [place] Potassium [Moles/Vol] 3.8 mmol/L Normal 3.5-5.0 [facility] Comment on above: Order Comment: Speci men Type: VENOUS BLOOD SPECIMENOrdering Facility: [facility] Address: [address] [place] [address] Performed By: #### 2 4344-4 ####[facility]ORATORYCLIA [id number] [address] [place] Sodium [Moles/Vol] 145 mmol/L High 136-144 [facility] Comment on above: Order Comment: Speci men Type: VENOUS BLOOD SPECIMENOrdering Facility: [facility] Address: [address] [place] [address] Performed By: #### 2 4344-4 ####[facility] LABORATORYCLIA [id number] [address] [place] Base excess Calc (BldV) [Moles/Vol] 8 mmol/L High 0-2 [facility] Comment on above: Order Comment: Speci men Type: VENOUS BLOOD SPECIMENOrdering Facility: [facility] Address: [address] [place] [address] Performed By: #### 2 4344-4 ####[facility]ORATORYCLIA [id number] [address] Body temperature 100.22 [degF] Normal [facility] Comment on above: Order Comment: Speci men Type: VENOUS BLOOD SPECIMENOrdering Facility: [facility] Address: [address] [place] [address] Performed By: #### 2 4344-4 ####[facility] LABORATORYCLIA [id number] [address] [place] CALCIUM IONIZED, PH CORRECTED 1.25 mmol/L Normal 1.08-1.30 [facility] Comment on above: Order Comment: Speci men Type: VENOUS BLOOD SPECIMENOrdering Facility: [facility] Address: [address] [place] [address] Performed By: #### 2 4344-4 ####[facility]ORATORYCLIA [id number] [address] [place] Calcium.ionized (BldV) [Mass/Vol] 1.24 mmol/L Normal 1.08-1.30 [facility] Comment on above: Order Comment: Speci men Type: VENOUS BLOOD SPECIMENOrdering Facility: [facility] Address: [address] [place] [address] Performed By: #### 2 4344-4 ####[facility]ORATORYCLIA [id number] [address] [place] Carboxyhemoglobin (BldV) [Mass fraction] 2.5 % High 0.0-2.0 [facility] Comment on above: Order Comment: Speci men Type: VENOUS BLOOD SPECIMENOrdering Facility: [facility] Address: [address] [place] [address] Result Comment: Carb oxyhemoglobin Reference Range for Smokers: 2.0-8.0% Performed By: #### 2 4344-4 ####[facility]ORATORYCLIA [id number] [address] [place] CO2 (BldV) [Partial pressure] 53 mm[Hg] Normal 42-55 [facility] Comment on above: Order Comment: Speci men Type: VENOUS BLOOD SPECIMENOrdering Facility: [facility] Address: [address] [place] [address] Performed By: #### 2 4344-4 ####[facility]ORATORYCLIA [id number] [address] [place] CO2 [Moles/Vol] 31 mmol/L High 25-29 [facility] Comment on above: Order Comment: Speci men Type: VENOUS BLOOD SPECIMENOrdering Facility: [facility] Address: [address] [place] [address] Performed By: #### 2 4344-4 ####[facility]ORATORYCLIA [id number] [address] [place] CO2 adjusted to patient's actual temperature (BldV) [Partial pressure] 56 mmHg High 42-55 [facility] Comment on above: Order Comment: Speci men Type: VENOUS BLOOD SPECIMENOrdering Facility: [facility] Address: [address] [place] [address] Performed By: #### 2 4344-4 ####[facility]ORATORYCLIA [id number] [place] [address] [place] Glucose [Mass/Vol] 131 mg/dL High 60-105 [facility] Comment on above: Order Comment: Speci men Type: VENOUS BLOOD SPECIMENOrdering Facility: [facility] Address: [address] [place] [address] Performed By: #### 2 4344-4 ####[facility]ORATORYCLIA [id number] [address] [place] HCO3 (Bld) [Moles/Vol] 33 mmol/L High 24-28 [facility] Comment on above: Order Comment: Speci men Type: VENOUS BLOOD SPECIMENOrdering Facility: [facility] Address: [address] [place] [address] Performed By: #### 2 4344-4 ####[facility]ORATORYCLIA [id number] [address] [place] Hematocrit (Bld) [Volume fraction] 30.8 % Low 39.0-51.0 [facility] Comment on above: Order Comment: Speci men Type: VENOUS BLOOD SPECIMENOrdering Facility: [facility] Address: [address] [place] [address] Performed By: #### 2 4344-4 ####[facility]ATORYCLIA [id number] [address] [place] Hemoglobin (Bld) [Mass/Vol] 10.0 g/dL Low 13.0-17.0 [facility] Comment on above: Order Comment: Speci men Type: VENOUS BLOOD SPECIMENOrdering Facility: [facility] Address: [address] [place] [address] Performed By: #### 2 4344-4 ####[facility]ORATORYCLIA [id number] [address] [place] Methemoglobin (Bld) [Mass fraction] % Normal 0.0-1.5 [facility] Comment on above: Order Comment: Speci men Type: VENOUS BLOOD SPECIMENOrdering Facility: [facility] Address: [address] [place] [address] Performed By: #### 2 4344-4 ####[facility]ORATORYCLIA [id number] [address] [place] O2 THERAPY NC = Nasal Cannula Normal [facility] Comment on above: Order Comment: Speci men Type: VENOUS BLOOD SPECIMENOrdering Facility: [facility] Address: [address] [address] Performed By: #### 2 4344-4 ####[facility]ATORYCLIA [id number] [address] Oxygen (BldV) [Partial pressure] 58 mm[Hg] High 35-45 [facility] Comment on above: Order Comment: Speci men Type: VENOUS BLOOD SPECIMENOrdering Facility: [facility] Address: [address] [place] [address] Performed By: #### 2 4344-4 ####[facility] LABORATORYCLIA [id number] [address] Oxygen adjusted to patient's actual temperature (BldV) [Partial pressure] 61 mmHg High 35-45 [facility] Comment on above: Order Comment: Speci men Type: VENOUS BLOOD SPECIMENOrdering Facility: [facility] Address: [address] [place] [address] Performed By: #### 2 4344-4 ####[facility] LABORATORYCLIA [id number] Oxygen saturation in Blood 88 % High 60-85 [facility] Comment on above: Order Comment: Speci men Type: VENOUS BLOOD SPECIMENOrdering Facility: [facility] Address: [address] [place] [address] Performed By: #### 2 4344-4 ####[facility]ORATORYCLIA [id number] [address] [place] Oxyhemoglobin (BldV) [Mass fraction] 85 % Normal 60-85 [facility] Comment on above: Order Comment: Speci men Type: VENOUS BLOOD SPECIMENOrdering Facility: [facility] Address: [address] [place] [address] Performed By: #### 2 4344-4 ####[facility]ATORYCLIA [id number] [address] [place] pH (BldV) 7.41 [pH] Normal 7.32-7.42 [facility] Comment on above: Order Comment: Speci men Type: VENOUS BLOOD SPECIMENOrdering Facility: [facility] Address: [address] [place] [address] Performed By: #### 2 4344-4 ####[facility] LABORATORYCLIA [id number] [address] [place] pH adjusted to patient's actual temperature (BldV) 7.40 Normal 7.32-7.42 [facility] Comment on above: Order Comment: Speci men Type: VENOUS BLOOD SPECIMENOrdering Facility: [facility] Address: [address] [place] [address] Performed By: #### 2 4344-4 ####[facility] LABORATORYCLIA [id number] [place] [address] [place] Potassium [Moles/Vol] 4.0 mmol/L Normal 3.5-5.0 [facility] Comment on above: Order Comment: Speci men Type: VENOUS BLOOD SPECIMENOrdering Facility: [facility] Address: [address] [place] [address] Performed By: #### 2 4344-4 ####[facility]ORATORYCLIA [id number] [place] [address] [place] Sodium [Moles/Vol] 146 mmol/L High 136-144 [facility] Comment on above: Order Comment: Speci men Type: VENOUS BLOOD SPECIMENOrdering Facility: [facility] Address: [address] [place] [address] Performed By: #### 2 4344-4 ####[facility] LABORATORYCLIA [id number] [place] [address] [place] Magnesium SerPl-mCncon 07-21 Magnesium [Mass/Vol] 2.5 mg/dL High 1.7-2.3 [facility] Comment on above: Order Comment: Speci men Type: BLOOD SPECIMENOrdering Facility: [facility] Address: [address] [place] [address] Performed By: #### 1 9123-9, 2777-1, 94008-2 ####[facility]ORATORYCLIA [id number] [address] OF [facility] NURSING PROGon 07-21-2021 NURSING PROG Normal [facility] Phosphate SerPl-mCncon 07-21 Phosphate [Mass/Vol] 3.7 mg/dL Normal 2.7-4.8 [facility] Comment on above: Order Comment: Speci men Type: BLOOD SPECIMENOrdering Facility: [facility] Address: [address] [place] [address] Performed By: #### 1 9123-9, 2777-1, 20390-6 ####[facility]ORATORYCLIA [id number] [address] THERAPY NTon 07-21-2021 THERAPY NT Normal [facility] XR CHEST 1V FRONTALon 2021 XR CHEST 1V FRONTAL Normal [facility] aPTT PPPon 07-21-2021 aPTT Coag (PPP) [Time] 53.0 s High 23.0-32.4 [facility] Comment on above: Order Comment: Speci men Type: BLOOD SPECIMENOrdering Facility: [facility] Address: [address] [place] [address] Performed By: #### 1 4979-9 ####[facility] LABORATORYCLIA [id number] [address] OF [facility] ALLIED HEALTHon 07-20-2021 ALLIED HEALTH Normal [facility] Basic metabolic 2000 panelon 07-20-2021 Anion gap [Moles/Vol] 8 mmol/L Low 9-18 [facility] Comment on above: Order Comment: Speci men Type: BLOOD SPECIMENOrdering Facility: [facility] Address: [address] [place] [address] Performed By: #### 2 4321-2, 47907-9, 2777-1 ####[facility] LABORATORYCLIA [id number] [address] [place] Calcium [Mass/Vol] 9.7 mg/dL Normal 8.5-10.2 [facility] Comment on above: Order Comment: Speci men Type: BLOOD SPECIMENOrdering Facility: [facility] Address: [address] [place] [address] Performed By: #### 2 4321-2, , 2776-05 ####[facility]ORATORYCLIA [id number] [place] [address] [place] Chloride [Moles/Vol] 104 mmol/L Normal 97-105 [facility] Comment on above: Order Comment: Speci men Type: BLOOD SPECIMENOrdering Facility: [facility] Address: [address] [place] [address] Performed By: #### 2 4321-2, , 2776-05 ####[facility]ORATORYCLIA [id number] [address] [place] CO2 [Moles/Vol] 34 mmol/L High 22-30 [facility] Comment on above: Order Comment: Speci men Type: BLOOD SPECIMENOrdering Facility: [facility] Address: [address] [place] [address] Performed By: #### 2 4321-2, , 2776-05 ####[facility]ORATORYCLIA [id number] [address] [place] Creatinine [Mass/Vol] 0.76 mg/dL Normal 0.73-1.22 [facility] Comment on above: Order Comment: Speci men Type: BLOOD SPECIMENOrdering Facility: [facility] Address: [address] [place] [address] Performed By: #### 2 4321-2, , 2776-05 ####[facility] LABORATORYCLIA [id number] [address] [place] ESTIMATED GLOMERULAR FILTRATION RATE 97 mL/min/1.73m??? Normal >=60 [facility] Comment on above: Order Comment: Speci men Type: BLOOD SPECIMENOrdering Facility: [facility] Address: [address] [place] [address] Result Comment: Luzmaria mated Glomerular Filtration Rate [...] Performed By: #### 2 4321-2, , 2776-05 ####[facility]NACLIA [id number] [place] [address] [place] Glucose [Mass/Vol] 123 mg/dL High 74-99 [facility] Comment on above: Order Comment: Shira feldman Type: BLOOD SPECIMENOrdering Facility: [facility] Address: [address] Result Comment: The [place] [employer] (ADA) provides guidance for cutoff [...] Standards of Medical Care in Diabetes 2016, [place] [employer]. Diabetes Care. 2016.39(Suppl 1). Performed By: #### 2 4321-2, , 2776-05 ####[facility]ORATORYCLIA [id number] [place] [address] [place] Potassium [Moles/Vol] 4.4 mmol/L Normal 3.7-5.1 [facility] Comment on above: Order Comment: Shira [facility] Type: BLOOD SPECIMENOrdering Facility: [facility] Address: [address] [id number] Performed By: #### 2 4321-2, , 2776-05 ####[facility]ORATORYCLIA [id number] [address] [place] Sodium [Moles/Vol] 146 mmol/L High 136-144 [facility] Comment on above: Order Comment: Speci men Type: BLOOD SPECIMENOrdering Facility: [facility] Address: [address] [place] [address] Performed By: #### 2 4321-2, , 2776-05 ####[facility]ORATORYCLIA [id number] [address] [place] Urea nitrogen [Mass/Vol] 38 mg/dL High 9-24 [facility] Comment on above: Order Comment: Speci men Type: BLOOD SPECIMENOrdering Facility: [facility] Address: [address] [place] [address] Performed By: #### 2 4321-2, , 2776-05 ####[facility]ORATORYCLIA [id number] [address] [place] CASE MANAGEMon 07-20-2021 CASE MANAGEM Normal [facility] CBC W Auto Differential pane l (Bld)on 07-20-2021 Basophils (Bld) [#/Vol] 0.05 10*3/uL Normal <0.11 [facility] Comment on above: Order Comment: Speci men Type: BLOOD SPECIMENOrdering Facility: [facility] Address: [address] [place] [address] Performed By: #### 5 7021-8 ####[facility]ORATORYCLIA [id number] [address] STATES [facility] Basophils/100 WBC (Bld) 0.5 % Normal [facility] Comment on above: Order Comment: Speci men Type: BLOOD SPECIMENOrdering Facility: [facility] Address: [address] [place] [address] Performed By: #### 5 7021-8 ####[facility]ORATORYCLIA [id number] [address] Differential cell count method Nom (Bld) Auto Normal [facility] Comment on above: Order Comment: Speci men Type: BLOOD SPECIMENOrdering Facility: [facility] Address: [address] [place] [address] Performed By: #### 5 7021-8 ####[facility]ORATORYCLIA [id number] [address] [place] Eosinophils (Bld) [#/Vol] 0.43 10*3/uL Normal <0.46 [facility] Comment on above: Order Comment: Speci men Type: BLOOD SPECIMENOrdering Facility: [facility] Address: [address] [place] [address] Performed By: #### 5 7021-8 ####[facility]ORATORYCLIA [id number] [address] Eosinophils/100 WBC (Bld) 4.1 % Normal [facility] Comment on above: Order Comment: Speci men Type: BLOOD SPECIMENOrdering Facility: [facility] Address: [address] [place] [address] Performed By: #### 5 7021-8 ####[facility]ORATORYCLIA [id number] [address] Erythrocyte distribution width (RBC) [Ratio] 16.7 % High 11.5-15.0 [facility] Comment on above: Order Comment: Speci men Type: BLOOD SPECIMENOrdering Facility: [facility] Address: [address] [place] [address] Performed By: #### 5 7021-8 ####[facility]ORATORYCLIA [id number] [address] Hematocrit (Bld) [Volume fraction] 33.0 % Low 39.0-51.0 [facility] Comment on above: Order Comment: Speci men Type: BLOOD SPECIMENOrdering Facility: [facility] Address: [address] [place] [address] Performed By: #### 5 7021-8 ####[facility]ORATORYCLIA [id number] [address] STATES OF [facility] Hemoglobin (Bld) [Mass/Vol] 9.7 g/dL Low 13.0-17.0 [facility] Comment on above: Order Comment: Speci men Type: BLOOD SPECIMENOrdering Facility: [facility] Address: [address] [place] [address] Performed By: #### 5 7021-8 ####[facility]ORATORYCLIA [id number] [address] IMMATURE GRAN % 0.4 % Normal [facility] Comment on above: Order Comment: Speci men Type: BLOOD SPECIMENOrdering Facility: [facility] Address: [address] [place] [address] Performed By: #### 5 7021-8 ####[facility]ORATORYCLIA [id number] [address] IMMATURE GRAN ABS 0.04 k/uL Normal <0.10 [facility] Comment on above: Order Comment: Speci men Type: BLOOD SPECIMENOrdering Facility: [facility] Address: [address] [place] [address] Performed By: #### 5 7021-8 ####[facility]ORATORYCLIA [id number] [address] [place] Lymphocytes (Bld) [#/Vol] 1.99 10*3/uL Normal 1.00-4.00 [facility] Comment on above: Order Comment: Speci men Type: BLOOD SPECIMENOrdering Facility: [facility] Address: [address] [place] [address] Performed By: #### 5 7021-8 ####[facility]ORATORYCLIA [id number] [address] Lymphocytes/100 WBC (Bld) 18.8 % Normal [facility] Comment on above: Order Comment: Speci men Type: BLOOD SPECIMENOrdering Facility: [facility] Address: [address] [place] [address] Performed By: #### 5 7021-8 ####[facility]ORATORYCLIA [id number] [address] MCH (RBC) [Entitic mass] 27.8 pg Normal 26.0-34.0 [facility] Comment on above: Order Comment: Speci men Type: BLOOD SPECIMENOrdering Facility: [facility] Address: [address] [place] [address] Performed By: #### 5 7021-8 ####[facility]ORATORYCLIA [id number] [address] MCHC (RBC) [Mass/Vol] 29.4 g/dL Low 30.5-36.0 [facility] Comment on above: Order Comment: Speci men Type: BLOOD SPECIMENOrdering Facility: [facility] Address: [address] [place] [address] Performed By: #### 5 7021-8 ####[facility]ORATORYCLIA [id number] [address] MCV (RBC) [Entitic vol] 94.6 fL Normal 80.0-100.0 [facility] Comment on above: Order Comment: Speci men Type: BLOOD SPECIMENOrdering Facility: [facility] Address: [address] [place] [address] Performed By: #### 5 7021-8 ####[facility]ORATORYCLIA [id number] [address] Monocytes (Bld) [#/Vol] 0.82 10*3/uL Normal <0.87 [facility] Comment on above: Order Comment: Speci men Type: BLOOD SPECIMENOrdering Facility: [facility] Address: [address] [place] [address] Performed By: #### 5 7021-8 ####[facility]ORATORYCLIA [id number] [address] Monocytes/100 WBC (Bld) 7.8 % Normal [facility] Comment on above: Order Comment: Speci men Type: BLOOD SPECIMENOrdering Facility: [facility] Address: [address] [place] [address] Performed By: #### 5 7021-8 ####[facility]ATORYCLIA [id number] [address] [place] Neutrophils (Bld) [#/Vol] 7.23 10*3/uL Normal 1.45-7.50 [facility] Comment on above: Order Comment: Speci men Type: BLOOD SPECIMENOrdering Facility: [facility] Address: [address] [place] [address] Performed By: #### 5 7021-8 ####[facility]ATORYCLIA [id number] [address] [place] Neutrophils/100 WBC (Bld) 68.4 % Normal [facility] Comment on above: Order Comment: Speci men Type: BLOOD SPECIMENOrdering Facility: [facility] Address: [address] [place] [address] Performed By: #### 5 7021-8 ####[facility]ORATORYCLIA [id number] [address] [place] Nucleated RBC (Bld) [#/Vol] 10*3/uL Normal <0.01 [facility] Comment on above: Order Comment: Speci men Type: BLOOD SPECIMENOrdering Facility: [facility] Address: [address] [place] [address] Performed By: #### 5 7021-8 ####[facility]ATORYCLIA [id number] [address] Nucleated RBC/100 WBC (Bld) [Ratio] 0.0 /100 WBC Normal [facility] Comment on above: Order Comment: Speci men Type: BLOOD SPECIMENOrdering Facility: [facility] Address: [address] [place] [address] Performed By: #### 5 7021-8 ####[facility]ORATORYCLIA [id number] [address] [place] Platelet mean volume (Bld) [Entitic vol] 10.5 fL Normal 9.0-12.7 [facility] Comment on above: Order Comment: Speci men Type: BLOOD SPECIMENOrdering Facility: [facility] Address: [address] [place] [address] Performed By: #### 5 7021-8 ####[facility]ORATORYCLIA [id number] [place] [address] [place] Platelets (Bld) [#/Vol] 400 10*3/uL Normal 150-400 [facility] Comment on above: Order Comment: Speci men Type: BLOOD SPECIMENOrdering Facility: [facility] Address: [address] [place] [address] Performed By: #### 5 7021-8 ####[facility]ORATORYCLIA [id number] [place] [address] [place] [facility] RBC (Bld) [#/Vol] 3.49 10*6/uL Low 4.20-6.00 [facility] Comment on above: Order Comment: Speci men Type: BLOOD SPECIMENOrdering Facility: [facility] Address: [address] [place] [address] Performed By: #### 5 7021-8 ####[facility]ORATORYCLIA [id number] [place] [address] [place] WBC (Bld) [#/Vol] 10.56 10*3/uL Normal 3.70-11.00 [facility] Comment on above: Order Comment: Speci men Type: BLOOD SPECIMENOrdering Facility: [facility] Address: [address] [place] [address] Performed By: #### 5 7021-8 ####[facility]ORATORYCLIA [id number] [address] [place] CONSULT PROGon 07-20-2021 CONSULT PROG Normal [facility] CT BRAIN WO IVCONon 07-21-[address] BRAIN WO IVCON Normal [facility] Magn[facility] Magnesium [Mass/Vol] 2.4 mg/dL High 1.7-2.3 [facility] Comment on above: Order Comment: Speci men Type: BLOOD SPECIMENOrdering Facility: [facility] Address: [address] [place] [address] Performed By: #### 2 4321-2, 63971-0, 2777-1 ####[facility]ATORYCLIA [id number] [address] [place] NUTRITIONon 07-20-2021 NUTRITION Normal [facility] Phosphate SerPl[facility] Phosphate [Mass/Vol] 4.1 mg/dL Normal 2.7-4.8 [facility] Comment on above: Order Comment: Speci men Type: BLOOD SPECIMENOrdering Facility: [facility] Address: [address] [place] [address] Performed By: #### 2 4321-2, 41995-8, 2777- ####[facility]ORATORYCLIA [id number] [address] [place] aPTT PPPon 07-20-2021 aPTT Coag (PPP) [Time] 53.6 s High 23.0-32.4 [facility] Comment on above: Order Comment: Speci men Type: BLOOD SPECIMENOrdering Facility: [facility] Address: [address] [place] [address] Performed By: #### 1 4979-9 ####[facility] LABORATORYCLIA [id number] [address] [place] Bacteria CSF Culton 07-20-19 22 Bacteria identified Cx Nom (CSF) CULTURE, CSF: No growth 14 days GRAM STAIN: No organisms seen No Polymorphonuclear Leukocytes Rare Mononuclear cells Gram stain performed on cytospun specimen. Normal [facility] Comment on above: Performed By: #### 6 06-4 ####[facility]ORATORYCLIA [id number] [place] [address] [place] CONSULT PROGon 07-19-2021 CONSULT PROG Normal [facility] CSF MANUAL DIFFon 07-19-2021 DIF TTL, CSF 100 cells counted Normal [facility] Comment on above: Order Comment: Speci men Type: CEREBROSPINAL FLUIDOrdering Facility: [facility] Address: [address] [place] [address] Performed By: #### L [id number], 50770-1, [id number] ####[facility]ORATORYCLIA [id number] [place] [address] [place] EOSIN%, CSF 1 % Normal [facility] Comment on above: Order Comment: Speci men Type: CEREBROSPINAL FLUIDOrdering Facility: [facility] Address: [address] [place] [address] Performed By: #### L [id number], 33542-1, [id number] ####[facility]ORATORYCLIA [id number] [place] [address] [place] LYMPH%, CSF 67 % Normal 50-90 [facility] Comment on above: Order Comment: Speci men Type: CEREBROSPINAL FLUIDOrdering Facility: [facility] Address: [address] [place] [address] Performed By: #### L [id number], 85125-4, [id number] ####[facility]ATORYCLIA [id number] [place] [address] [place] MACRO%, CSF 1 % High <1 [facility] Comment on above: Order Comment: Speci men Type: CEREBROSPINAL FLUIDOrdering Facility: [facility] Address: [address] [place] [address] Performed By: #### L [id number], 07017-6, [id number] ####[facility]ORATORYCLIA [id number] [place] [address] [place] MONO%, CSF 18 % Normal 10-50 [facility] Comment on above: Order Comment: Speci men Type: CEREBROSPINAL FLUIDOrdering Facility: [facility] Address: [address] [address] Performed By: #### L [id number], 55300-4, [id number] ####[facility]ATORYCLIA [id number] [place] [address] [place] NEUT%, CSF 11 % High 0-3 [facility] Comment on above: Order Comment: Speci men Type: CEREBROSPINAL FLUIDOrdering Facility: [facility] Address: [address] [place] [address] Performed By: #### L [id number], 32698-9, [id number] ####[facility] LABORATORYCLIA [id number] [address] STATES OF [facility] OTHER CL%, CSF 2 % Normal [facility] Comment on above: Order Comment: Speci men Type: CEREBROSPINAL FLUIDOrdering Facility: [facility] Address: [address] [place] [address] Result Comment: Path review to follow. Performed By: #### L [id number], 78944-4, [id number] ####[facility] LABORATORYCLIA [id number] [address] CSF PATHOLOGIST INTERP (LAB REFLEX ORDER-NO BILL)on 07-19-2021 CSF STAFF REVIEW Normal [facility] Comment on above: Order Comment: Speci men Type: CEREBROSPINAL FLUIDOrdering Facility: [facility] Address: [address] [place] [address] Performed By: #### L [id number], 66850-4, [id number] ####[facility] LABORATORYCLIA [id number] [address] Pathologist name Reviewed by Wing Cummings MD [facility] Comment on above: Order Comment: Speci men Type: CEREBROSPINAL FLUIDOrdering Facility: [facility] Address: [address] [place] [address] Performed By: #### L [id number], 22944-1, [id number] ####[facility]ORATORYCLIA [id number] [address] Cell count panel (CSF)on Clarity (CSF) Clear Normal Clear [facility] Comment on above: Order Comment: Speci men Type: CEREBROSPINAL FLUIDOrdering Facility: [facility] Address: [address] [place] [address] Performed By: #### L [id number], 95856-7, [id number] ####[facility]ATORYCLIA [id number] [address] Clarity (Unsp spec) Not Indicated Normal Clear [facility] Comment on above: Order Comment: Speci men Type: CEREBROSPINAL FLUIDOrdering Facility: [facility] Address: [address] [place] [address] Performed By: #### L [id number], 49361-6, [id number] ####[facility]ATORYCLIA [id number] [address] Color (CSF) Colorless Normal Colorless [facility] Comment on above: Order Comment: Speci men Type: CEREBROSPINAL FLUIDOrdering Facility: [facility] Address: [address] [place] [address] Performed By: #### L [id number], 43804-6, [id number] ####[facility]ATORYCLIA [id number] [address] Color (Spun CSF) Not Indicated Normal Colorless [facility] Comment on above: Order Comment: Speci men Type: CEREBROSPINAL FLUIDOrdering Facility: [facility] Address: [address] [place] [address] Performed By: #### L [id number], [id number], [id number] ####[facility]ORATORYCLIA [id number] [address] CSF TUBE NUMBER [employer] Normal [facility] Comment on above: Order Comment: Speci men Type: CEREBROSPINAL FLUIDOrdering Facility: [facility] Address: [address] [place] [address] Performed By: #### L [id number], [id number], [id number] ####[facility]ORATORYCLIA [id number] [address] RBC Manual cnt (CSF) [#/Vol] 0 cells/uL Normal 0-5 [facility] Comment on above: Order Comment: Speci men Type: CEREBROSPINAL FLUIDOrdering Facility: [facility] Address: [address] [place] [address] Performed By: #### L [id number], 18108-8, [id number] ####[facility] LABORATORYCLIA [id number] [address] WBC Manual cnt (CSF) [#/Vol] 2 cells/uL Normal 0-5 [facility] Comment on above: Order Comment: Speci men Type: CEREBROSPINAL FLUIDOrdering Facility: [facility] Address: [address] [place] [address] Performed By: #### L [id number], 56004-7, [id number] ####[facility] LABORATORYCLIA [id number] [address] Glucose CSF-ncon 2 Glucose (CSF) [Mass/Vol] 69 mg/dL Normal 40-70 [facility] Comment on above: Order Comment: Speci men Type: CEREBROSPINAL FLUIDOrdering Facility: [facility] Address: [address] [place] [address] Result Comment: Lumb ar CSF glucose values of healthy patients are approximately 60% of the plasma values and must always be compared with a concurrently measured plasma value for adequate clinical interpretation.References: 1. Glucose HK (GLUC3) [package insert V 12.0 Nepalese]. [employer], [place], [place]. September 2015. 2. Teresa HGarfield, He, H. (2015). Chapter 7: Glucose and Lactate. Marianela Rothman.(eds.), Cerebrospinal Fluid in Clinical Neurology. [place]: [employer]. Performed By: #### 2 342-4, 2880-3 ####[facility] LABORATORYCLIA [id number] [address] NURSING PROGon 07-19-2021 NURSING PROG Normal [facility] NURSING PROG Normal [facility] Prot CSF-mCncon 07-19-2021 Protein (CSF) [Mass/Vol] 51 mg/dL High [facility] Comment on above: Order Comment: Speci men Type: CEREBROSPINAL FLUIDOrdering Facility: [facility] Address: [address] [place] [address] Performed By: #### 2 342-4, 2880-3 ####[facility] LABORATORYCLIA [id number] [address] [place] THERAPY NTon 07-19-2021 THERAPY NT Normal [facility] Urinalysis complete panel (U )on 07-19-2021 Bilirubin Ql (U) Negative Normal Negative [facility] Comment on above: Order Comment: Speci men Type: URINE SPECIMENOrdering Facility: [facility] Address: [address] [place] [address] Performed By: #### 2 4356-8 ####[facility]NACL[facility] [id number] [address] [place] Clarity (Unsp spec) Clear Normal Clear [facility] Comment on above: Order Comment: Speci men Type: URINE SPECIMENOrdering Facility: [facility] Address: [address] [place] [address] Performed By: #### 2 4356-8 ####[facility] LABORATORYCLIA [id number] [address] [place] Color (U) Colorless Normal yellow [facility] Comment on above: Order Comment: Speci men Type: URINE SPECIMENOrdering Facility: [facility] Address: [address] [place] [address] Performed By: #### 2 4356-8 ####[facility] LABORATORYCLIA [id number] [address] [place] Glucose Test strip (U) [Mass/Vol] Negative Normal Negative [facility] Comment on above: Order Comment: Speci men Type: URINE SPECIMENOrdering Facility: [facility] Address: [address] [address] Performed By: #### 2 4356-8 ####[facility]ORATORYCLIA [id number] [place] [address] [place] Hemoglobin Ql (U) Trace Abnormal Negative [facility] Comment on above: Order Comment: Speci men Type: URINE SPECIMENOrdering Facility: [facility] Address: [address] [place] [address] Performed By: #### 2 4356-8 ####[facility]ORATORYCLIA [id number] [place] [address] [place] Hyaline casts (Urine sed) [#/Area] 1-3 /LPF Abnormal 0 /LPF [facility] Comment on above: Order Comment: Speci men Type: URINE SPECIMENOrdering Facility: [facility] Address: [address] [place] [address] Performed By: #### 2 4356-8 ####[facility] LABORATORYCLIA [id number] [place] [address] [place] Ketones Ql (U) Negative Normal Negative [facility] Comment on above: Order Comment: Speci men Type: URINE SPECIMENOrdering Facility: [facility] Address: [address] [place] [address] Performed By: #### 2 4356-8 ####[facility] LABORATORYCLIA [id number] [address] [place] Leukocyte esterase Test strip Ql (U) Negative Normal Negative [facility] Comment on above: Order Comment: Speci men Type: URINE SPECIMENOrdering Facility: [facility] Address: [address] [address] Performed By: #### 2 4356-8 ####[facility]ORATORYCLIA [id number] [place] [address] [place] Nitrite Ql (U) Negative Normal Negative [facility] Comment on above: Order Comment: Speci men Type: URINE SPECIMENOrdering Facility: [facility] Address: [address] [address] Performed By: #### 2 4356-8 ####[facility] LABORATORYCLIA [id number] [address] pH (U) 7.0 [pH] Normal 5.0-8.0 [facility] Comment on above: Order Comment: Speci men Type: URINE SPECIMENOrdering Facility: [facility] Address: [address] [place] [address] Performed By: #### 2 4356-8 ####[facility] LABORATORYCLIA [id number] [address] [place] Protein (U) [Mass/Vol] Negative Normal Negative [facility] Comment on above: Order Comment: Speci men Type: URINE SPECIMENOrdering Facility: [facility] Address: [address] [place] [address] Performed By: #### 2 4356-8 ####[facility] LABORATORYCLIA [id number] [address] STATES [facility] RBC LM.HPF (Urine sed) [#/Area] 6-10 /HPF Abnormal 0-3 /HPF [facility] Comment on above: Order Comment: Speci men Type: URINE SPECIMENOrdering Facility: [facility] Address: [address] [place] [address] Performed By: #### 2 4356-8 ####[facility]ORATORYCLIA [id number] [address] STATES [facility] Specific gravity (U) [Rel density] 1.008 Normal 1.005-1.030 [facility] Comment on above: Order Comment: Speci men Type: URINE SPECIMENOrdering Facility: [facility] Address: [address] [place] [address] Performed By: #### 2 4356-8 ####[facility] LABORATORYCLIA [id number] [address] [place] Urobilinogen Ql (U) Normal Normal Negative [facility] Comment on above: Order Comment: Speci men Type: URINE SPECIMENOrdering Facility: [facility] Address: [address] [place] [address] Performed By: #### 2 4356-8 ####[facility] LABORATORYCLIA [id number] [address] WBC LM.HPF (Urine sed) [#/Area] 0-5 /HPF Normal 0-5 /HPF [facility] Comment on above: Order Comment: Speci men Type: URINE SPECIMENOrdering Facility: [facility] Address: [address] [place] [address] Performed By: #### 2 4356-8 ####[facility] LABORATORYCLIA [id number] [address] STATES OF [facility] Vancomycin random [Mass/Vol] on 07-19-2021 Vancomycin [Mass/Vol] 13.9 ug/mL Normal 10.0-20.0 [facility] Comment on above: Order Comment: Speci men Type: BLOOD SPECIMENOrdering Facility: [facility] Address: [address] [place] [address] Result Comment: Refe rence ranges and high/low indicator flags are provided as general guidelines only. The treating physician must determine appropriate target levels/dosing based on the specific clinical situation. Performed By: #### 4 091-5 ####[facility]ORATORYCLIA [id number] [address] [place] aPTT PPPon 07-19-2021 aPTT Coag (PPP) [Time] 53.9 s High 23.0-32.4 [facility] Comment on above: Order Comment: Speci men Type: BLOOD SPECIMENOrdering Facility: [facility] Address: [address] [place] [address] Performed By: #### 1 4979-9 ####[facility]ORATORYCLIA [id number] [place] [address] [place] Basic metabolic 2000 panelon 07-18-2021 Anion gap [Moles/Vol] 6 mmol/L Low 9-18 [facility] Comment on above: Order Comment: Speci men Type: BLOOD SPECIMENOrdering Facility: [facility] Address: [address] [place], [place] [address] Performed By: #### 2 4321-2, , 2776-05 ####[facility] LABORATORYCLIA [id number] [place] [address] [place] Calcium [Mass/Vol] 9.4 mg/dL Normal 8.5-10.2 [facility] Comment on above: Order Comment: Speci men Type: BLOOD SPECIMENOrdering Facility: [facility] Address: [address] [place] [address] Performed By: #### 2 4321-2, , 2776-05 ####[facility] LABORATORYCLIA [id number] [place] [address] [place] Chloride [Moles/Vol] 103 mmol/L Normal 97-105 [facility] Comment on above: Order Comment: Speci men Type: BLOOD SPECIMENOrdering Facility: [facility] Address: [address] [place] [address] Performed By: #### 2 4321-2, , 2776-05 ####[facility]ORATORYCLIA [id number] [place] [address] [place] CO2 [Moles/Vol] 34 mmol/L High 22-30 [facility] Comment on above: Order Comment: Speci men Type: BLOOD SPECIMENOrdering Facility: [facility] Address: [address] Performed By: #### 2 4321-2, , 2776-05 ####[facility]ORATORYCLIA [id number] [place] [address] [place] Creatinine [Mass/Vol] 0.75 mg/dL Normal 0.73-1.22 [facility] Comment on above: Order Comment: Speci men Type: BLOOD SPECIMENOrdering Facility: [facility] Address: [address] [place], [place] [address] Performed By: #### 2 4321-2, , 2776-05 ####[facility]NACLIA [id number] [address] OF [facility] ESTIMATED GLOMERULAR FILTRATION RATE 98 mL/min/1.73m??? Normal >=60 [facility] Comment on above: Order Comment: Shira feldman Type: BLOOD SPECIMENOrdering Facility: [facility] Address: [address] [place] [address] Result Comment: Luzmaria mated Glomerular Filtration Rate [...] Performed By: #### 2 4321-2, , 2776-05 ####[facility]CLIA [id number] [address] [place] Glucose [Mass/Vol] 125 mg/dL High 74-99 [facility] Comment on above: Order Comment: Shira feldman Type: BLOOD SPECIMENOrdering Facility: [facility] Address: [address] [place] [address] Result Comment: The [place] [employer] (ADA) provides guidance for cutoff [...] Standards of Medical Care in Diabetes 2016, [place] [employer]. Diabetes Care. 2016.39(Suppl 1). Performed By: #### 2 4321-2, , 2776-05 ####[facility] LABORATORYCLIA [id number] [place] [address] [place] Potassium [Moles/Vol] 4.4 mmol/L Normal 3.7-5.1 [facility] Comment on above: Order Comment: Speci men Type: BLOOD SPECIMENOrdering Facility: [facility] Address: [address] [place] [address] Performed By: #### 2 4321-2, 43759-3, 2776- ####[facility]ORATORYCLIA [id number] [address] [place] Sodium [Moles/Vol] 143 mmol/L Normal 136-144 [facility] Comment on above: Order Comment: Speci men Type: BLOOD SPECIMENOrdering Facility: [facility] Address: [address] [place] [address] Performed By: #### 2 4321-2, , 2776- ####[facility] LABORATORYCLIA [id number] [address] STATES [facility] Urea nitrogen [Mass/Vol] 33 mg/dL High 9-24 [facility] Comment on above: Order Comment: Speci men Type: BLOOD SPECIMENOrdering Facility: [facility] Address: [address] [place] [address] Performed By: #### 2 4321-2, , 2776- ####[facility] LABORATORYCLIA [id number] [address] OF [facility] CASE MANAGEMon 07-18-2021 CASE MANAGEM Normal [facility] CBC W Auto Differential pane l (Bld)on 07-18-2021 Basophils (Bld) [#/Vol] 0.05 10*3/uL Normal <0.11 [facility] Comment on above: Order Comment: Speci men Type: BLOOD SPECIMENOrdering Facility: [facility] Address: [address] [place] [address] Performed By: #### 5 7021-8 ####[facility]ORATORYCLIA [id number] [address] [place] Basophils/100 WBC (Bld) 0.5 % Normal [facility] Comment on above: Order Comment: Speci men Type: BLOOD SPECIMENOrdering Facility: [facility] Address: [address] [place] [address] Performed By: #### 5 7021-8 ####[facility] LABORATORYCLIA [id number] [address] Differential cell count method Nom (Bld) Auto Normal [facility] Comment on above: Order Comment: Speci men Type: BLOOD SPECIMENOrdering Facility: [facility] Address: [address] [place] [address] Performed By: #### 5 7021-8 ####[facility]ORATORYCLIA [id number] [address] [place] Eosinophils (Bld) [#/Vol] 0.44 10*3/uL Normal <0.46 [facility] Comment on above: Order Comment: Speci men Type: BLOOD SPECIMENOrdering Facility: [facility] Address: [address] [place] [address] Performed By: #### 5 7021-8 ####[facility]ORATORYCLIA [id number] [address] Eosinophils/100 WBC (Bld) 4.3 % Normal [facility] Comment on above: Order Comment: Speci men Type: BLOOD SPECIMENOrdering Facility: [facility] Address: [address] [place] [address] Performed By: #### 5 7021-8 ####[facility]ORATORYCLIA [id number] [address] [place] Erythrocyte distribution width (RBC) [Ratio] 16.6 % High 11.5-15.0 [facility] Comment on above: Order Comment: Speci men Type: BLOOD SPECIMENOrdering Facility: [facility] Address: [address] [place] [address] Performed By: #### 5 7021-8 ####[facility]ORATORYCLIA [id number] [address] [facility] Hematocrit (Bld) [Volume fraction] 32.2 % Low 39.0-51.0 [facility] Comment on above: Order Comment: Speci men Type: BLOOD SPECIMENOrdering Facility: [facility] Address: [address] [place] [address] Performed By: #### 5 7021-8 ####[facility]ORATORYCLIA [id number] [address] Hemoglobin (Bld) [Mass/Vol] 9.5 g/dL Low 13.0-17.0 [facility] Comment on above: Order Comment: Speci men Type: BLOOD SPECIMENOrdering Facility: [facility] Address: [address] [place] [address] Performed By: #### 5 7021-8 ####[facility]ORATORYCLIA [id number] [address] IMMATURE GRAN % 0.4 % Normal [facility] Comment on above: Order Comment: Speci men Type: BLOOD SPECIMENOrdering Facility: [facility] Address: [address] [place] [address] Performed By: #### 5 7021-8 ####[facility] LABORATORYCLIA [id number] [address] IMMATURE GRAN ABS 0.04 k/uL Normal <0.10 [facility] Comment on above: Order Comment: Speci men Type: BLOOD SPECIMENOrdering Facility: [facility] Address: [address] [place] [address] Performed By: #### 5 7021-8 ####[facility] LABORATORYCLIA [id number] [address] Lymphocytes (Bld) [#/Vol] 1.71 10*3/uL Normal 1.00-4.00 [facility] Comment on above: Order Comment: Speci men Type: BLOOD SPECIMENOrdering Facility: [facility] Address: [address] [place] [address] Performed By: #### 5 7021-8 ####[facility]ORATORYCLIA [id number] [address] Lymphocytes/100 WBC (Bld) 16.9 % Normal [facility] Comment on above: Order Comment: Speci men Type: BLOOD SPECIMENOrdering Facility: [facility] Address: [address] [place] [address] Performed By: #### 5 7021-8 ####[facility]ORATORYCLIA [id number] [address] MCH (RBC) [Entitic mass] 27.9 pg Normal 26.0-34.0 [facility] Comment on above: Order Comment: Speci men Type: BLOOD SPECIMENOrdering Facility: [facility] Address: [address] [place] [address] Performed By: #### 5 7021-8 ####[facility]ORATORYCLIA [id number] [address] MCHC (RBC) [Mass/Vol] 29.5 g/dL Low 30.5-36.0 [facility] Comment on above: Order Comment: Speci men Type: BLOOD SPECIMENOrdering Facility: [facility] Address: [address] [place] [address] Performed By: #### 5 7021-8 ####[facility]ORATORYCLIA [id number] [address] MCV (RBC) [Entitic vol] 94.7 fL Normal 80.0-100.0 [facility] Comment on above: Order Comment: Speci men Type: BLOOD SPECIMENOrdering Facility: [facility] Address: [address] [place] [address] Performed By: #### 5 7021-8 ####[facility]ORATORYCLIA [id number] [address] Monocytes (Bld) [#/Vol] 0.69 10*3/uL Normal <0.87 [facility] Comment on above: Order Comment: Speci men Type: BLOOD SPECIMENOrdering Facility: [facility] Address: [address] [place] [address] Performed By: #### 5 7021-8 ####[facility] LABORATORYCLIA [id number] [address] STATES [facility] Monocytes/100 WBC (Bld) 6.8 % Normal [facility] Comment on above: Order Comment: Speci men Type: BLOOD SPECIMENOrdering Facility: [facility] Address: [address] [place] [address] Performed By: #### 5 7021-8 ####[facility]ORATORYCLIA [id number] [address] [place] Neutrophils (Bld) [#/Vol] 7.19 10*3/uL Normal 1.45-7.50 [facility] Comment on above: Order Comment: Speci men Type: BLOOD SPECIMENOrdering Facility: [facility] Address: [address] [place] [address] Performed By: #### 5 7021-8 ####[facility]ORATORYCLIA [id number] [address] Neutrophils/100 WBC (Bld) 71.1 % Normal [facility] Comment on above: Order Comment: Speci men Type: BLOOD SPECIMENOrdering Facility: [facility] Address: [address] [place] [address] Performed By: #### 5 7021-8 ####[facility] LABORATORYCLIA [id number] [address] [place] Nucleated RBC (Bld) [#/Vol] 10*3/uL Normal <0.01 [facility] Comment on above: Order Comment: Speci men Type: BLOOD SPECIMENOrdering Facility: [facility] Address: [address] [place] [address] Performed By: #### 5 7021-8 ####[facility]ORATORYCLIA [id number] [address] [place] Nucleated RBC/100 WBC (Bld) [Ratio] 0.0 /100 WBC Normal [facility] Comment on above: Order Comment: Speci men Type: BLOOD SPECIMENOrdering Facility: [facility] Address: [address] [place] [address] Performed By: #### 5 7021-8 ####[facility]ORATORYCLIA [id number] [address] [place] Platelet mean volume (Bld) [Entitic vol] 10.3 fL Normal 9.0-12.7 [facility] Comment on above: Order Comment: Speci men Type: BLOOD SPECIMENOrdering Facility: [facility] Address: [address] [place] [address] Performed By: #### 5 7021-8 ####[facility] LABORATORYCLIA [id number] [address] Platelets (Bld) [#/Vol] 403 10*3/uL High 150-400 [facility] Comment on above: Order Comment: Speci men Type: BLOOD SPECIMENOrdering Facility: [facility] Address: [address] [place] [address] Performed By: #### 5 7021-8 ####[facility] LABORATORYCLIA [id number] [address] [place] RBC (Bld) [#/Vol] 3.40 10*6/uL Low 4.20-6.00 [facility] Comment on above: Order Comment: Speci men Type: BLOOD SPECIMENOrdering Facility: [facility] Address: [address] [place] [address] Performed By: #### 5 7021-8 ####[facility] LABORATORYCLIA [id number] [address] [place] WBC (Bld) [#/Vol] 10.12 10*3/uL Normal 3.70-11.00 [facility] Comment on above: Order Comment: Speci men Type: BLOOD SPECIMENOrdering Facility: [facility] Address: [address] [place] [address] Performed By: #### 5 7021-8 ####[facility] LABORATORYCLIA [id number] [address] [facility] Magnesium SerPl-mCncon 07-18 Magnesium [Mass/Vol] 2.4 mg/dL High 1.7-2.3 [facility] Comment on above: Order Comment: Speci men Type: BLOOD SPECIMENOrdering Facility: [facility] Address: [address] [place] [address] Performed By: #### 2 4321-2, 24892-7, 2777-1 ####[facility] LABORATORYCLIA [id number] [address] NURSING PROGon 07-18-2021 NURSING PROG Normal [facility] NURSING PROG Normal [facility] Phosphate SerPl-ncon 07-18 Phosphate [Mass/Vol] 3.9 mg/dL Normal 2.7-4.8 [facility] Comment on above: Order Comment: Speci men Type: BLOOD SPECIMENOrdering Facility: [facility] Address: [address] [place] [address] Performed By: #### 2 4321-2, , 2777-1 ####[facility] LABORATORYCLIA [id number] [address] THERAPY NTon 07-18-2021 THERAPY NT Normal [facility] aPTT PPPon 07-18-2021 aPTT Coag (PPP) [Time] 52.3 s High 23.0-32.4 [facility] Comment on above: Order Comment: Speci men Type: BLOOD SPECIMENOrdering Facility: [facility] Address: [address] [place] [address] Performed By: #### 1 4979-9 ####[facility] LABORATORYCLIA [id number] [address] [place] CBC W Auto Differential pane l (Bld)on 07-17-2021 Basophils (Bld) [#/Vol] 0.05 10*3/uL Normal <0.11 [facility] Comment on above: Order Comment: Speci men Type: BLOOD SPECIMENOrdering Facility: [facility] Address: [address] [place] [address] Performed By: #### 5 7021-8 ####[facility]ORATORYCLIA [id number] [address] [place] Basophils/100 WBC (Bld) 0.5 % Normal [facility] Comment on above: Order Comment: Speci men Type: BLOOD SPECIMENOrdering Facility: [facility] Address: [address] [place] [address] Performed By: #### 5 7021-8 ####[facility]ORATORYCLIA [id number] [address] [place] Differential cell count method Nom (Bld) Auto Normal [facility] Comment on above: Order Comment: Speci men Type: BLOOD SPECIMENOrdering Facility: [facility] Address: [address] [place] [address] Performed By: #### 5 7021-8 ####[facility]ORATORYCLIA [id number] [address] [place] Eosinophils (Bld) [#/Vol] 0.32 10*3/uL Normal <0.46 [facility] Comment on above: Order Comment: Speci men Type: BLOOD SPECIMENOrdering Facility: [facility] Address: [address] [place] [address] Performed By: #### 5 7021-8 ####[facility]ORATORYCLIA [id number] [address] [place] Eosinophils/100 WBC (Bld) 3.4 % Normal [facility] Comment on above: Order Comment: Speci men Type: BLOOD SPECIMENOrdering Facility: [facility] Address: [address] [place] [address] Performed By: #### 5 7021-8 ####[facility]ORATORYCLIA [id number] [address] Erythrocyte distribution width (RBC) [Ratio] 16.6 % High 11.5-15.0 [facility] Comment on above: Order Comment: Speci men Type: BLOOD SPECIMENOrdering Facility: [facility] Address: [address] [place] [address] Performed By: #### 5 7021-8 ####[facility] LABORATORYCLIA [id number] [address] Hematocrit (Bld) [Volume fraction] 30.7 % Low 39.0-51.0 [facility] Comment on above: Order Comment: Speci men Type: BLOOD SPECIMENOrdering Facility: [facility] Address: [address] [place] [address] Performed By: #### 5 7021-8 ####[facility]NACLIA [id number] [address] OF [facility] Hemoglobin (Bld) [Mass/Vol] 9.0 g/dL Low 13.0-17.0 [facility] Comment on above: Order Comment: Speci men Type: BLOOD SPECIMENOrdering Facility: [facility] Address: [address] [place] [address] Performed By: #### 5 7021-8 ####[facility] LABORATORYCLIA [id number] [address] IMMATURE GRAN % 0.6 % Normal [facility] Comment on above: Order Comment: Speci men Type: BLOOD SPECIMENOrdering Facility: [facility] Address: [address] [place] [address] Performed By: #### 5 7021-8 ####[facility] LABORATORYCLIA [id number] [address] IMMATURE GRAN ABS 0.06 k/uL Normal <0.10 [facility] Comment on above: Order Comment: Speci men Type: BLOOD SPECIMENOrdering Facility: [facility] Address: [address] [place] [address] Performed By: #### 5 7021-8 ####[facility] LABORATORYCLIA [id number] [address] [facility] Lymphocytes (Bld) [#/Vol] 1.61 10*3/uL Normal 1.00-4.00 [facility] Comment on above: Order Comment: Speci men Type: BLOOD SPECIMENOrdering Facility: [facility] Address: [address] [place] [address] Performed By: #### 5 7021-8 ####[facility] LABORATORYCLIA [id number] [address] Lymphocytes/100 WBC (Bld) 17.3 % Normal [facility] Comment on above: Order Comment: Speci men Type: BLOOD SPECIMENOrdering Facility: [facility] Address: [address] [place] [address] Performed By: #### 5 7021-8 ####[facility] LABORATORYCLIA [id number] [address] MCH (RBC) [Entitic mass] 26.9 pg Normal 26.0-34.0 [facility] Comment on above: Order Comment: Speci men Type: BLOOD SPECIMENOrdering Facility: [facility] Address: [address] [place] [address] Performed By: #### 5 7021-8 ####[facility] LABORATORYCLIA [id number] [address] STATES OF [facility] MCHC (RBC) [Mass/Vol] 29.3 g/dL Low 30.5-36.0 [facility] Comment on above: Order Comment: Speci men Type: BLOOD SPECIMENOrdering Facility: [facility] Address: [address] [place] [address] Performed By: #### 5 7021-8 ####[facility] LABORATORYCLIA [id number] [address] [place] MCV (RBC) [Entitic vol] 91.9 fL Normal 80.0-100.0 [facility] Comment on above: Order Comment: Speci men Type: BLOOD SPECIMENOrdering Facility: [facility] Address: [address] [place] [address] Performed By: #### 5 7021-8 ####[facility]ORYCLIA [id number] [address] [place] Monocytes (Bld) [#/Vol] 0.61 10*3/uL Normal <0.87 [facility] Comment on above: Order Comment: Speci men Type: BLOOD SPECIMENOrdering Facility: [facility] Address: [address] [place] [address] Performed By: #### 5 7021-8 ####[facility]ATORYCLIA [id number] [address] Monocytes/100 WBC (Bld) 6.6 % Normal [facility] Comment on above: Order Comment: Speci men Type: BLOOD SPECIMENOrdering Facility: [facility] Address: [address] [place] [address] Performed By: #### 5 7021-8 ####[facility] LABORATORYCLIA [id number] [address] STATES OF [facility] Neutrophils (Bld) [#/Vol] 6.64 10*3/uL Normal 1.45-7.50 [facility] Comment on above: Order Comment: Speci men Type: BLOOD SPECIMENOrdering Facility: [facility] Address: [address] [place] [address] Performed By: #### 5 7021-8 ####[facility]ORYCLIA [id number] [address] [place] Neutrophils/100 WBC (Bld) 71.6 % Normal [facility] Comment on above: Order Comment: Speci men Type: BLOOD SPECIMENOrdering Facility: [facility] Address: [address] [place] [address] Performed By: #### 5 7021-8 ####[facility]ATORYCLIA [id number] [address] [place] Nucleated RBC (Bld) [#/Vol] 10*3/uL Normal <0.01 [facility] Comment on above: Order Comment: Speci men Type: BLOOD SPECIMENOrdering Facility: [facility] Address: [address] [place] [address] Performed By: #### 5 7021-8 ####[facility] LABORATORYCLIA [id number] [address] [place] Nucleated RBC/100 WBC (Bld) [Ratio] 0.0 /100 WBC Normal [facility] Comment on above: Order Comment: Speci men Type: BLOOD SPECIMENOrdering Facility: [facility] Address: [address] [place] [address] Performed By: #### 5 7021-8 ####[facility] LABORATORYCLIA [id number] [address] [place] Platelet mean volume (Bld) [Entitic vol] 10.1 fL Normal 9.0-12.7 [facility] Comment on above: Order Comment: Speci men Type: BLOOD SPECIMENOrdering Facility: [facility] Address: [address] [place] [address] Performed By: #### 5 7021-8 ####[facility] LABORATORYCLIA [id number] [address] [place] Platelets (Bld) [#/Vol] 387 10*3/uL Normal 150-400 [facility] Comment on above: Order Comment: Speci men Type: BLOOD SPECIMENOrdering Facility: [facility] Address: [address] [place] [address] Performed By: #### 5 7021-8 ####[facility]ORATORYCLIA [id number] [address] [place] RBC (Bld) [#/Vol] 3.34 10*6/uL Low 4.20-6.00 [facility] Comment on above: Order Comment: Speci men Type: BLOOD SPECIMENOrdering Facility: [facility] Address: [address] [place] [address] Performed By: #### 5 7021-8 ####[facility] LABORATORYCLIA [id number] [address] OF [facility] WBC (Bld) [#/Vol] 9.29 10*3/uL Normal 3.70-11.00 [facility] Comment on above: Order Comment: Speci men Type: BLOOD SPECIMENOrdering Facility: [facility] Address: [address] [place] [address] Performed By: #### 5 7021-8 ####[facility]ORATORYCLIA [id number] [address] CONSULT PROGon 07-17-2021 CONSULT PROG Normal [facility] Magnesium SerPl-mCncon 07-17 Magnesium [Mass/Vol] 2.3 mg/dL Normal 1.7-2.3 [facility] Comment on above: Order Comment: Speci men Type: BLOOD SPECIMENOrdering Facility: [facility] Address: [address] [place] [address] Performed By: #### 2 777-1, 32811-4 ####[facility]ORATORYCLIA [id number] [address] NURSING PROGon 07-17-2021 NURSING PROG Normal [facility] NURSING PROG Normal [facility] NURSING PROG Normal [facility] Phosphate SerPl-mCncon 07-17 Phosphate [Mass/Vol] 3.6 mg/dL Normal 2.7-4.8 [facility] Comment on above: Order Comment: Speci men Type: BLOOD SPECIMENOrdering Facility: [facility] Address: [address] [place] [address] Performed By: #### 2 777-1, 95133-1 ####[facility]ORATORYCLIA [id number] [address] [place] aPTT PPPon 07-17-2021 aPTT Coag (PPP) [Time] 57.2 s High 23.0-32.4 [facility] Comment on above: Order Comment: Speci men Type: BLOOD SPECIMENOrdering Facility: [facility] Address: [address] [place] [address] Performed By: #### 1 4979-9 ####[facility] LABORATORYCLIA [id number] [place] [address] [place] Basic metabolic 2000 panelon 07-16-2021 Anion gap [Moles/Vol] 5 mmol/L Low 9-18 [facility] Comment on above: Order Comment: Speci men Type: BLOOD SPECIMENOrdering Facility: [facility] Address: [address] [place] [address] Performed By: #### 2 777-1, 52635-5, ####[facility]ORATORYCLIA [id number] [place] [address] [place] Calcium [Mass/Vol] 9.1 mg/dL Normal 8.5-10.2 [facility] Comment on above: Order Comment: Speci men Type: BLOOD SPECIMENOrdering Facility: [facility] Address: [address] [place] [address] Performed By: #### 2 777-1, 50851-1, ####[facility]ORATORYCLIA [id number] [place] [address] [place] Chloride [Moles/Vol] 101 mmol/L Normal 97-105 [facility] Comment on above: Order Comment: Speci men Type: BLOOD SPECIMENOrdering Facility: [facility] Address: [address] [place], [place] [address] Performed By: #### 2 777-1, 96073-3, ####[facility]ORATORYCLIA [id number] [place] [address] [place] CO2 [Moles/Vol] 35 mmol/L High 22-30 [facility] Comment on above: Order Comment: Speci men Type: BLOOD SPECIMENOrdering Facility: [facility] Address: [address] [place], [place] [address] Performed By: #### 2 777-1, 27709-0, ####[facility]NACLIA [id number] [place] [phone] [place] [facility] Creatinine [Mass/Vol] 0.73 mg/dL Normal 0.73-1.22 [facility] Comment on above: Order Comment: Speccara men Type: BLOOD SPECIMENOrdering Facility: [facility] Address: [address] [facility] [address]Pa[address] Performed By: #### 2 777-1, 56519-7, ####[facility]NACLIA [id number] [place] [id number] [facility] ESTIMATED GLOMERULAR FILTRATION RATE 98 mL/min/1.73m??? Normal >=60 [facility] Comment on above: Order Comment: Speci men Type: BLOOD SPECIMENOrdering Facility: [facility] Address: [address] [address] Result Comment: Luzmaria mated Glomerular Filtration Rate [...] actual GFR. Performed By: #### 2 777-1, 50195-5, ####[facility]CLIA [id number] [place] [phone] [place] Glucose [Mass/Vol] 133 mg/dL High 74-99 [facility] Comment on above: Order Comment: Speci men Type: BLOOD SPECIMENOrdering Facility: [facility] Address: [address] Result Comment: The [place] [employer] (ADA) provides guidance for cutoff [...] Standards of Medical Care in Diabetes 2016, [place] [employer]. Diabetes Care. 2016.39(Suppl 1). Performed By: #### 2 777-1, 81125-3, ####[facility] LABORATORYCLIA [id number] [place] [address] [place] Potassium [Moles/Vol] 4.2 mmol/L Normal 3.7-5.1 [facility] Comment on above: Order Comment: Shira feldman Type: BLOOD SPECIMENOrdering Facility: [facility] Address: [address] [place] [address] Performed By: #### 2 777-1, , ####[facility]NACLIA [id number] [address] [place] Sodium [Moles/Vol] 141 mmol/L Normal 136-144 [facility] Comment on above: Order Comment: Shira feldman Type: BLOOD SPECIMENOrdering Facility: [facility] Address: [address] [place] [address] Performed By: #### 2 777-1, , ####[facility]ORATORYCLIA [id number] [place] [address] [place] Urea nitrogen [Mass/Vol] 21 mg/dL Normal 9-24 [facility] Comment on above: Order Comment: Johni francia Type: BLOOD SPECIMENOrdering Facility: [facility] Address: [address] [place] [address] Performed By: #### 2 777-1, 26312-7, ####[facility]ORATORYCLIA [id number] [place] [address] [place] CBC W Auto Differential pane l (Bld)on 07-16-2021 Basophils (Bld) [#/Vol] 0.06 10*3/uL Normal <0.11 [facility] Comment on above: Order Comment: Speci men Type: BLOOD SPECIMENOrdering Facility: [facility] Address: [address] [place] [address] Performed By: #### 5 7021-8 ####[facility]ORYCLIA [id number] [address] [place] Basophils/100 WBC (Bld) 0.7 % Normal [facility] Comment on above: Order Comment: Speci men Type: BLOOD SPECIMENOrdering Facility: [facility] Address: [address] [place] [address] Performed By: #### 5 7021-8 ####[facility]ATORYCLIA [id number] [address] [place] Differential cell count method Nom (Bld) Auto Normal [facility] Comment on above: Order Comment: Speci men Type: BLOOD SPECIMENOrdering Facility: [facility] Address: [address] [place] [address] Performed By: #### 5 7021-8 ####[facility]ORYCLIA [id number] [address] [place] Eosinophils (Bld) [#/Vol] 0.35 10*3/uL Normal <0.46 [facility] Comment on above: Order Comment: Speci men Type: BLOOD SPECIMENOrdering Facility: [facility] Address: [address] [place] [address] Performed By: #### 5 7021-8 ####[facility]ORYCLIA [id number] [address] [place] Eosinophils/100 WBC (Bld) 3.9 % Normal [facility] Comment on above: Order Comment: Speci men Type: BLOOD SPECIMENOrdering Facility: [facility] Address: [address] [place] [address] Performed By: #### 5 7021-8 ####[facility]ORYCLIA [id number] [address] Erythrocyte distribution width (RBC) [Ratio] 16.5 % High 11.5-15.0 [facility] Comment on above: Order Comment: Speci men Type: BLOOD SPECIMENOrdering Facility: [facility] Address: [address] [place] [address] Performed By: #### 5 7021-8 ####[facility] LABORATORYCLIA [id number] [address] Hematocrit (Bld) [Volume fraction] 30.9 % Low 39.0-51.0 [facility] Comment on above: Order Comment: Speci men Type: BLOOD SPECIMENOrdering Facility: [facility] Address: [address] [place] [address] Performed By: #### 5 7021-8 ####[facility]ORATORYCLIA [id number] [address] Hemoglobin (Bld) [Mass/Vol] 9.1 g/dL Low 13.0-17.0 [facility] Comment on above: Order Comment: Speci men Type: BLOOD SPECIMENOrdering Facility: [facility] Address: [address] [place] [address] Performed By: #### 5 7021-8 ####[facility]ORATORYCLIA [id number] [address] IMMATURE GRAN % 0.4 % Normal [facility] Comment on above: Order Comment: Speci men Type: BLOOD SPECIMENOrdering Facility: [facility] Address: [address] [place] [address] Performed By: #### 5 7021-8 ####[facility]ORATORYCLIA [id number] [address] IMMATURE GRAN ABS 0.04 k/uL Normal <0.10 [facility] Comment on above: Order Comment: Speci men Type: BLOOD SPECIMENOrdering Facility: [facility] Address: [address] [place] [address] Performed By: #### 5 7021-8 ####[facility]ORATORYCLIA [id number] [address] STATES OF [facility] Lymphocytes (Bld) [#/Vol] 1.35 10*3/uL Normal 1.00-4.00 [facility] Comment on above: Order Comment: Speci men Type: BLOOD SPECIMENOrdering Facility: [facility] Address: [address] [place] [address] Performed By: #### 5 7021-8 ####[facility]ORATORYCLIA [id number] [address] Lymphocytes/100 WBC (Bld) 15.0 % Normal [facility] Comment on above: Order Comment: Speci men Type: BLOOD SPECIMENOrdering Facility: [facility] Address: [address] [place] [address] Performed By: #### 5 7021-8 ####[facility]ORATORYCLIA [id number] [address] STATES OF [facility] MCH (RBC) [Entitic mass] 27.1 pg Normal 26.0-34.0 [facility] Comment on above: Order Comment: Speci men Type: BLOOD SPECIMENOrdering Facility: [facility] Address: [address] [place] [address] Performed By: #### 5 7021-8 ####[facility]ORATORYCLIA [id number] [address] [place] MCHC (RBC) [Mass/Vol] 29.4 g/dL Low 30.5-36.0 [facility] Comment on above: Order Comment: Speci men Type: BLOOD SPECIMENOrdering Facility: [facility] Address: [address] [place] [address] Performed By: #### 5 7021-8 ####[facility]ORATORYCLIA [id number] [address] [place] MCV (RBC) [Entitic vol] 92.0 fL Normal 80.0-100.0 [facility] Comment on above: Order Comment: Speci men Type: BLOOD SPECIMENOrdering Facility: [facility] Address: [address] [place] [address] Performed By: #### 5 7021-8 ####[facility]ATORYCLIA [id number] [place] [address] [place] Monocytes (Bld) [#/Vol] 0.53 10*3/uL Normal <0.87 [facility] Comment on above: Order Comment: Speci men Type: BLOOD SPECIMENOrdering Facility: [facility] Address: [address] [place] [address] Performed By: #### 5 7021-8 ####[facility] LABORATORYCLIA [id number] [address] [place] Monocytes/100 WBC (Bld) 5.9 % Normal [facility] Comment on above: Order Comment: Speci men Type: BLOOD SPECIMENOrdering Facility: [facility] Address: [address] [place] [address] Performed By: #### 5 7021-8 ####[facility] LABORATORYCLIA [id number] [place] [address] [place] Neutrophils (Bld) [#/Vol] 6.67 10*3/uL Normal 1.45-7.50 [facility] Comment on above: Order Comment: Speci men Type: BLOOD SPECIMENOrdering Facility: [facility] Address: [address] [place] [address] Performed By: #### 5 7021-8 ####[facility]ORYCLIA [id number] [address] [place] Neutrophils/100 WBC (Bld) 74.1 % Normal [facility] Comment on above: Order Comment: Speci men Type: BLOOD SPECIMENOrdering Facility: [facility] Address: [address] [place] [address] Performed By: #### 5 7021-8 ####[facility] LABORATORYCLIA [id number] [address] [place] Nucleated RBC (Bld) [#/Vol] 10*3/uL Normal <0.01 [facility] Comment on above: Order Comment: Speci men Type: BLOOD SPECIMENOrdering Facility: [facility] Address: [address] [place] [address] Performed By: #### 5 7021-8 ####[facility] LABORATORYCLIA [id number] [address] [place] Nucleated RBC/100 WBC (Bld) [Ratio] 0.0 /100 WBC Normal [facility] Comment on above: Order Comment: Speci men Type: BLOOD SPECIMENOrdering Facility: [facility] Address: [address] [place] [address] Performed By: #### 5 7021-8 ####[facility] LABORATORYCLIA [id number] [address] [place] Platelet mean volume (Bld) [Entitic vol] 9.9 fL Normal 9.0-12.7 [facility] Comment on above: Order Comment: Speci men Type: BLOOD SPECIMENOrdering Facility: [facility] Address: [address] [place] [address] Performed By: #### 5 7021-8 ####[facility] LABORATORYCLIA [id number] [address] [place] Platelets (Bld) [#/Vol] 391 10*3/uL Normal 150-400 [facility] Comment on above: Order Comment: Speci men Type: BLOOD SPECIMENOrdering Facility: [facility] Address: [address] [place] [address] Performed By: #### 5 7021-8 ####[facility]ORATORYCLIA [id number] [address] [place] RBC (Bld) [#/Vol] 3.36 10*6/uL Low 4.20-6.00 [facility] Comment on above: Order Comment: Speci men Type: BLOOD SPECIMENOrdering Facility: [facility] Address: [address] [address] Performed By: #### 5 7021-8 ####[facility] LABORATORYCLIA [id number] [address] [place] WBC (Bld) [#/Vol] 9.00 10*3/uL Normal 3.70-11.00 [facility] Comment on above: Order Comment: Speci men Type: BLOOD SPECIMENOrdering Facility: [facility] Address: [facility] [place] [address] Performed By: #### 5 7021-8 ####[facility] LABORATORYCLIA [id number] [address] OF [facility] CONSULT PROGon 07-16-2021 CONSULT PROG Normal [facility] CONSULT PROG Normal [facility] Magnesium [Mass/Vol] 2.3 mg/dL Normal 1.7-2.3 [facility] Comment on above: Order Comment: Speci men Type: BLOOD SPECIMENOrdering Facility: [facility] Address: [facility] [place] [address] Performed By: #### 2 [id number], , ####[facility] LABORATORYCLIA [id number] [address] NURSING PROGon 07-16-2021 NURSING PROG Normal [facility] Phosphate SerPl-mCncon 07-16 Phosphate [Mass/Vol] 3.6 mg/dL Normal 2.7-4.8 [facility] Comment on above: Order Comment: Speci men Type: BLOOD SPECIMENOrdering Facility: [facility] Address: [facility] [place] [address] Performed By: #### 2 777-1, 98350-9, ####[facility] LABORATORYCLIA [id number] [address] [place] Vancomycin random [Mass/Vol] on 07-16-2021 Vancomycin [Mass/Vol] 16.9 ug/mL Normal 10.0-20.0 [facility] Comment on above: Order Comment: Speci men Type: BLOOD SPECIMENOrdering Facility: [facility] Address: [address] [place] [address] Result Comment: Refe rence ranges and high/low indicator flags are provided as general guidelines only. The treating physician must determine appropriate target levels/dosing based on the specific clinical situation. Performed By: #### 4 091-5 ####[facility] LABORATORYCLIA [id number] [place] [address] [place] aPTT PPPon 07-16-2021 aPTT Coag (PPP) [Time] 57.2 s High 23.0-32.4 [facility] Comment on above: Order Comment: Speci men Type: BLOOD SPECIMENOrdering Facility: [facility] Address: [address] [place] [address] Performed By: #### 1 4979-9 ####[facility] LABORATORYCLIA [id number] [place] [address] [place] ALLIED HEALTHon 07-15-2021 ALLIED HEALTH Normal [facility] Basic metabolic 2000 panelon 07-15-2021 Anion gap [Moles/Vol] 11 mmol/L Normal 9-18 [facility] Comment on above: Order Comment: Speci men Type: BLOOD SPECIMENOrdering Facility: [facility] Address: [address] [place] [address] Performed By: #### 2 4321-2, , 2776-05 ####[facility] LABORATORYCLIA [id number] [place] [address] [place] Calcium [Mass/Vol] 8.8 mg/dL Normal 8.5-10.2 [facility] Comment on above: Order Comment: Speci men Type: BLOOD SPECIMENOrdering Facility: [facility] Address: [address] [place] [address] Performed By: #### 2 4321-2, , 2777- ####[facility] LABORATORYCLIA [id number] [address] STATES OF [facility] Chloride [Moles/Vol] 101 mmol/L Normal 97-105 [facility] Comment on above: Order Comment: Speci men Type: BLOOD SPECIMENOrdering Facility: [facility] Address: [address] [place] [address] Performed By: #### 2 4321-2, 96906-5, 2776-05 ####[facility] LABORATORYCLIA [id number] [address] OF [facility] CO2 [Moles/Vol] 31 mmol/L High 22-30 [facility] Comment on above: Order Comment: Speci men Type: BLOOD SPECIMENOrdering Facility: [facility] Address: [address] [place] [address] Performed By: #### 2 4321-2, , 2776-05 ####[facility] [id number] [address] Creatinine [Mass/Vol] 0.76 mg/dL Normal 0.73-1.22 [facility] Comment on above: Order Comment: Speci men Type: BLOOD SPECIMENOrdering Facility: [facility] Address: [address] [place] [address] Performed By: #### 2 4321-2, , 2776-05 ####[facility] LABORATORYCLIA [id number] [address] ESTIMATED GLOMERULAR FILTRATION RATE 97 mL/min/1.73m??? Normal >=60 [facility] Comment on above: Order Comment: Speci men Type: BLOOD SPECIMENOrdering Facility: [facility] Address: [address] [place] [address] Result Comment: Luzmaria mated Glomerular Filtration Rate [...] Performed By: #### 2 4321-2, , 2776-05 ####[facility] LABORATORYCLIA [id number] [place] [address] [place] Glucose [Mass/Vol] 115 mg/dL High 74-99 [facility] Comment on above: Order Comment: Speci men Type: BLOOD SPECIMENOrdering Facility: [facility] Address: [address] [id number] Result Comment: The [place] [employer] (ADA) provides guidance for cutoff [...] Standards of Medical Care in Diabetes 2016, [place] [employer]. Diabetes Care. 2016.39(Suppl 1). Performed By: #### 2 4321-2, , 2776-05 ####[facility] LABORATORYCLIA [id number] [place] [address] [place] Potassium [Moles/Vol] 4.0 mmol/L Normal 3.7-5.1 [facility] Comment on above: Order Comment: Johni men Type: BLOOD SPECIMENOrdering Facility: [facility] Address: [address] [place] [address] Performed By: #### 2 4321-2, , 2776-05 ####[facility] LABORATORYIA [id number] [place] [address] [place] Sodium [Moles/Vol] 143 mmol/L Normal 136-144 [facility] Comment on above: Order Comment: Johni men Type: BLOOD SPECIMENOrdering Facility: [facility] Address: [address] [phone] Performed By: #### 2 4321-2, 55324-6, 2777-1 ####[facility] LABORATORYCLIA [id number] [address] STATES [facility] Urea nitrogen [Mass/Vol] 17 mg/dL Normal 9-24 [facility] Comment on above: Order Comment: Speci men Type: BLOOD SPECIMENOrdering Facility: [facility] Address: [address] [place] [address] Performed By: #### 2 4321-2, , 2776-05 ####[facility] LABORATORYCLIA [id number] [address] CASE MANAGEMon 07-15-2021 CASE MANAGEM Normal [facility] CBC panel Auto (Bld)on 07-15 Erythrocyte distribution width (RBC) [Ratio] 16.4 % High 11.5-15.0 [facility] Comment on above: Order Comment: Speci men Type: BLOOD SPECIMENOrdering Facility: [facility] Address: [address] [place] [address] Performed By: #### 5 8410-2 ####[facility] LABORATORYCLIA [id number] [address] STATES [facility] Hematocrit (Bld) [Volume fraction] 30.3 % Low 39.0-51.0 [facility] Comment on above: Order Comment: Speci men Type: BLOOD SPECIMENOrdering Facility: [facility] Address: [address] [place] [address] Performed By: #### 5 8410-2 ####[facility] LABORATORYCLIA [id number] [address] [place] Hemoglobin (Bld) [Mass/Vol] 9.2 g/dL Low 13.0-17.0 [facility] Comment on above: Order Comment: Speci men Type: BLOOD SPECIMENOrdering Facility: [facility] Address: [address] [place] [address] Performed By: #### 5 8410-2 ####[facility] LABORATORYCLIA [id number] [address] MCH (RBC) [Entitic mass] 28.3 pg Normal 26.0-34.0 [facility] Comment on above: Order Comment: Speci men Type: BLOOD SPECIMENOrdering Facility: [facility] Address: [address] [place] [address] Performed By: #### 5 8410-2 ####[facility] LABORATORYCLIA [id number] [address] MCHC (RBC) [Mass/Vol] 30.4 g/dL Low 30.5-36.0 [facility] Comment on above: Order Comment: Speci men Type: BLOOD SPECIMENOrdering Facility: [facility] Address: [address] [place] [address] Performed By: #### 5 8410-2 ####[facility]CLIA [id number] [address] MCV (RBC) [Entitic vol] 93.2 fL Normal 80.0-100.0 [facility] Comment on above: Order Comment: Speci men Type: BLOOD SPECIMENOrdering Facility: [facility] Address: [address] [place] [address] Performed By: #### 5 8410-2 ####[facility] LABORATORYCLIA [id number] [address] Nucleated RBC (Bld) [#/Vol] 10*3/uL Normal <0.01 [facility] Comment on above: Order Comment: Speci men Type: BLOOD SPECIMENOrdering Facility: [facility] Address: [address] [place] [address] Performed By: #### 5 8410-2 ####[facility] LABORATORYCLIA [id number] [address] Platelet mean volume (Bld) [Entitic vol] 9.9 fL Normal 9.0-12.7 [facility] Comment on above: Order Comment: Speci men Type: BLOOD SPECIMENOrdering Facility: [facility] Address: [address] [place] [address] Performed By: #### 5 8410-2 ####[facility] LABORATORYCLIA [id number] [address] OF [facility] Platelets (Bld) [#/Vol] 381 10*3/uL Normal 150-400 [facility] Comment on above: Order Comment: Speci men Type: BLOOD SPECIMENOrdering Facility: [facility] Address: [address] [place] [address] Performed By: #### 5 8410-2 ####[facility] LABORATORYCLIA [id number] [place] [address] [place] RBC (Bld) [#/Vol] 3.25 10*6/uL Low 4.20-6.00 [facility] Comment on above: Order Comment: Speci men Type: BLOOD SPECIMENOrdering Facility: [facility] Address: [address] [place] [address] Performed By: #### 5 8410-2 ####[facility] LABORATORYCLIA [id number] [address] OF [facility] WBC (Bld) [#/Vol] 8.80 10*3/uL Normal 3.70-11.00 [facility] Comment on above: Order Comment: Speci men Type: BLOOD SPECIMENOrdering Facility: [facility] Address: [address] [place] [address] Performed By: #### 5 8410-2 ####[facility] LABORATORYCLIA [id number] [address] [place] Magnesium SerPl-mCncon 07-15 Magnesium [Mass/Vol] 2.2 mg/dL Normal 1.7-2.3 [facility] Comment on above: Order Comment: Speci men Type: BLOOD SPECIMENOrdering Facility: [facility] Address: [address] [place] [address] Performed By: #### 2 4321-2, 60827-3, 27711-04 ####[facility] LABORATORYCLIA [id number] [address] [place] NURSING PROGon 07-15-2021 NURSING PROG Normal [facility] NURSING PROG Normal [facility] NURSING PROG Normal [facility] NUTRITIONon 07-15-2021 NUTRITION Normal [facility] Phosphate SerPl-mCncon 07-15 Phosphate [Mass/Vol] 3.4 mg/dL Normal 2.7-4.8 [facility] Comment on above: Order Comment: Speci men Type: BLOOD SPECIMENOrdering Facility: [facility] Address: [address] [place] [address] Performed By: #### 2 4321-2, , 2776-05 ####[facility] LABORATORYCLIA [id number] [address] [place] THERAPY NTon 07-15-2021 THERAPY NT Normal [facility] US DVT UPPER LTon 07-15-2021 US DVT UPPER LT Normal [facility] XR CHEST 1V FRONTALon 2021 XR CHEST 1V FRONTAL Normal [facility] aPTT PPPon 07-15-2021 aPTT Coag (PPP) [Time] 59.9 s High 23.0-32.4 [facility] Comment on above: Order Comment: Speci men Type: BLOOD SPECIMENOrdering Facility: [facility] Address: [address] [place] [address] Performed By: #### 1 4979-9 ####[facility] LABORATORYCLIA [id number] [place] [address] [place] Basic metabolic 2000 panelon 07-14-2021 Anion gap [Moles/Vol] 9 mmol/L Normal 9-18 [facility] Comment on above: Order Comment: Speci men Type: BLOOD SPECIMENOrdering Facility: [facility] Address: [address] [place] [address] Performed By: #### 1 9123-9, 2777-, 58935-5 ####[facility] LABORATORYCLIA [id number] [place] [address] [place] Calcium [Mass/Vol] 8.5 mg/dL Normal 8.5-10.2 [facility] Comment on above: Order Comment: Speci men Type: BLOOD SPECIMENOrdering Facility: [facility] Address: [address] [place] [address] Performed By: #### 1 9123-9, 2777, 33109-0 ####[facility] LABORATORYCLIA [id number] [place] [address] [place] Chloride [Moles/Vol] 99 mmol/L Normal 97-105 [facility] Comment on above: Order Comment: Speci men Type: BLOOD SPECIMENOrdering Facility: [facility] Address: [address] [place] [address] Performed By: #### 1 9123-9, 27711-04, 56356-7 ####[facility] LABORATORYCLIA [id number] [address] [place] CO2 [Moles/Vol] 31 mmol/L High 22-30 [facility] Comment on above: Order Comment: Speci men Type: BLOOD SPECIMENOrdering Facility: [facility] Address: [address] [place] [address] Performed By: #### 1 9123-9, 27711-04, 65755-1 ####[facility] LABORATORYCLIA [id number] [place] [address] [place] Creatinine [Mass/Vol] 0.74 mg/dL Normal 0.73-1.22 [facility] Comment on above: Order Comment: Speci men Type: BLOOD SPECIMENOrdering Facility: [facility] Address: [address] [place] [address] Performed By: #### 1 9123-9, 2777-1, 54576-0 ####[facility] LABORATORYCLIA [id number] [address] [facility] ESTIMATED GLOMERULAR FILTRATION RATE 98 mL/min/1.73m??? Normal >=60 [facility] Comment on above: Order Comment: Shira feldman Type: BLOOD SPECIMENOrdering Facility: [facility] Address: [address] [place] [address] Result Comment: Luzmaria mated Glomerular Filtration Rate [...] GFR. Performed By: #### 1 9123-9, 2777-1, 40070-9 ####[facility] LABORATORYCLIA [id number] [place] [address] [place] Glucose [Mass/Vol] 117 mg/dL High 74-99 [facility] Comment on above: Order Comment: Shira feldman Type: BLOOD SPECIMENOrdering Facility: [facility] Address: [address] [address] Result Comment: The [place] [employer] (ADA) provides guidance for cutoff [...] Standards of Medical Care in Diabetes 2016, [place] [employer]. Diabetes Care. 2016.39(Suppl 1). Performed By: #### 1 9123-9, 2777-1, 85536-4 ####[facility] LABORATORYCLIA [id number] [place] [address] [place] Potassium [Moles/Vol] 3.7 mmol/L Normal 3.7-5.1 [facility] Comment on above: Order Comment: Shira feldman Type: BLOOD SPECIMENOrdering Facility: [facility] Address: [address] [place] [address] Performed By: #### 1 9123-9, 2777-1, 11821-5 ####[facility] LABORATORYCLIA [id number] [address] Sodium [Moles/Vol] 139 mmol/L Normal 136-144 [facility] Comment on above: Order Comment: Speci men Type: BLOOD SPECIMENOrdering Facility: [facility] Address: [address] [place] [address] Performed By: #### 1 9123-9, 2777, 70870-4 ####[facility] LABORATORYCLIA [id number] [address] STATES [facility] Urea nitrogen [Mass/Vol] 16 mg/dL Normal 9-24 [facility] Comment on above: Order Comment: Speci men Type: BLOOD SPECIMENOrdering Facility: [facility] Address: [address] [place] [address] Performed By: #### 1 9123-9, 2777, 44287-9 ####[facility] LABORATORYCLIA [id number] [address] OF [facility] CBC panel Auto (Bld)on 07-14 Erythrocyte distribution width (RBC) [Ratio] 16.2 % High 11.5-15.0 [facility] Comment on above: Order Comment: Speci men Type: BLOOD SPECIMENOrdering Facility: [facility] Address: [address] [place] [address] Performed By: #### 5 8410-2 ####[facility] LABORATORYCLIA [id number] [address] Hematocrit (Bld) [Volume fraction] 29.7 % Low 39.0-51.0 [facility] Comment on above: Order Comment: Speci men Type: BLOOD SPECIMENOrdering Facility: [facility] Address: [address] [place] [address] Performed By: #### 5 8410-2 ####[facility] LABORATORYCLIA [id number] [address] [facility] Hemoglobin (Bld) [Mass/Vol] 8.8 g/dL Low 13.0-17.0 [facility] Comment on above: Order Comment: Speci men Type: BLOOD SPECIMENOrdering Facility: [facility] Address: [address] [place] [address] Performed By: #### 5 8410-2 ####[facility] LABORATORYCLIA [id number] [address] MCH (RBC) [Entitic mass] 27.5 pg Normal 26.0-34.0 [facility] Comment on above: Order Comment: Speci men Type: BLOOD SPECIMENOrdering Facility: [facility] Address: [address] [place] [address] Performed By: #### 5 8410-2 ####[facility]ORATORYCLIA [id number] [address] MCHC (RBC) [Mass/Vol] 29.6 g/dL Low 30.5-36.0 [facility] Comment on above: Order Comment: Speci men Type: BLOOD SPECIMENOrdering Facility: [facility] Address: [address] [place] [address] Performed By: #### 5 8410-2 ####[facility] LABORATORYCLIA [id number] [address] [facility] MCV (RBC) [Entitic vol] 92.8 fL Normal 80.0-100.0 [facility] Comment on above: Order Comment: Speci men Type: BLOOD SPECIMENOrdering Facility: [facility] Address: [address] [place] [address] Performed By: #### 5 8410-2 ####[facility]ORATORYCLIA [id number] [address] Nucleated RBC (Bld) [#/Vol] 10*3/uL Normal <0.01 [facility] Comment on above: Order Comment: Speci men Type: BLOOD SPECIMENOrdering Facility: [facility] Address: [address] [place] [address] Performed By: #### 5 8410-2 ####[facility] LABORATORYCLIA [id number] [address] Platelet mean volume (Bld) [Entitic vol] 9.6 fL Normal 9.0-12.7 [facility] Comment on above: Order Comment: Speci men Type: BLOOD SPECIMENOrdering Facility: [facility] Address: [address] [place] [address] Performed By: #### 5 8410-2 ####[facility] LABORATORYCLIA [id number] [address] [place] Platelets (Bld) [#/Vol] 354 10*3/uL Normal 150-400 [facility] Comment on above: Order Comment: Speci men Type: BLOOD SPECIMENOrdering Facility: [facility] Address: [address] [place] [address] Performed By: #### 5 8410-2 ####[facility] LABORATORYCLIA [id number] [address] [place] RBC (Bld) [#/Vol] 3.20 10*6/uL Low 4.20-6.00 [facility] Comment on above: Order Comment: Speci men Type: BLOOD SPECIMENOrdering Facility: [facility] Address: [address] [place] [address] Performed By: #### 5 8410-2 ####[facility] LABORATORYCLIA [id number] [address] [place] WBC (Bld) [#/Vol] 9.41 10*3/uL Normal 3.70-11.00 [facility] Comment on above: Order Comment: Speci men Type: BLOOD SPECIMENOrdering Facility: [facility] Address: [address] [place] [address] Performed By: #### 5 8410-2 ####[facility]ORATORYCLIA [id number] [address] CONSULT PROGon 07-14-2021 CONSULT PROG Normal [facility] Magnesium SerPl-mCncon 07-14 Magnesium [Mass/Vol] 2.2 mg/dL Normal 1.7-2.3 [facility] Comment on above: Order Comment: Speci men Type: BLOOD SPECIMENOrdering Facility: [facility] Address: [address] [place] [address] Performed By: #### 1 9123-9, 2777-1, 14493-2 ####[facility] LABORATORYCLIA [id number] [address] NURSING PROGon 07-14-2021 NURSING PROG Normal [facility] Phosphate SerPl-mCncon 07-14 Phosphate [Mass/Vol] 3.6 mg/dL Normal 2.7-4.8 [facility] Comment on above: Order Comment: Speci men Type: BLOOD SPECIMENOrdering Facility: [facility] Address: [address] [place] [address] Performed By: #### 1 9123-9, 2777-1, 08972-3 ####[facility] LABORATORYCLIA [id number] [address] aPTT PPPon 07-14-2021 aPTT Coag (PPP) [Time] 62.9 s High 23.0-32.4 [facility] Comment on above: Order Comment: Speci men Type: BLOOD SPECIMENOrdering Facility: [facility] Address: [address] [place] [address] Performed By: #### 1 4979-9 ####[facility] LABORATORYCLIA [id number] [address] aPTT Coag (PPP) [Time] 55.2 s High 23.0-32.4 [facility] Comment on above: Order Comment: Speci men Type: BLOOD SPECIMENOrdering Facility: [facility] Address: [address] [place] [address] Performed By: #### 1 4979-9 ####[facility] LABORATORYCLIA [id number] [place] [address] [place] Basic metabolic 2000 panelon 07-13-2021 Anion gap [Moles/Vol] 10 mmol/L Normal 9-18 [facility] Comment on above: Order Comment: Speci men Type: BLOOD SPECIMENOrdering Facility: [facility] Address: [address] [place] [address] Performed By: #### 1 9123-9, 2777-, 61395-4 ####[facility] LABORATORYCLIA [id number] [place] [address] [place] Calcium [Mass/Vol] 8.5 mg/dL Normal 8.5-10.2 [facility] Comment on above: Order Comment: Speci men Type: BLOOD SPECIMENOrdering Facility: [facility] Address: [address] [place] [address] Performed By: #### 1 9123-9, 2777, 83182-2 ####[facility] LABORATORYCLIA [id number] [place] [address] [place] Chloride [Moles/Vol] 98 mmol/L Normal 97-105 [facility] Comment on above: Order Comment: Speci men Type: BLOOD SPECIMENOrdering Facility: [facility] Address: [address] [place] [address] Performed By: #### 1 9123-9, 27711-04, 76024-1 ####[facility] LABORATORYCLIA [id number] [place] [address] [place] CO2 [Moles/Vol] 32 mmol/L High 22-30 [facility] Comment on above: Order Comment: Speci men Type: BLOOD SPECIMENOrdering Facility: [facility] Address: [address] [address] Performed By: #### 1 9123-9, 2777, 96564-1 ####[facility] LABORATORYCLIA [id number] [address] STATES OF [facility] Creatinine [Mass/Vol] 0.75 mg/dL Normal 0.73-1.22 [facility] Comment on above: Order Comment: Shira feldman Type: BLOOD SPECIMENOrdering Facility: [facility] Address: [address] [place] [address] Performed By: #### 1 9123-9, 2777-1, 66249-6 ####[facility]NA[facility] [id number] [address] ESTIMATED GLOMERULAR FILTRATION RATE 98 mL/min/1.73m??? Normal >=60 [facility] Comment on above: Order Comment: Shira feldman Type: BLOOD SPECIMENOrdering Facility: [facility] Address: [address] [place] [address] Result Comment: Luzmaria mated Glomerular Filtration Rate [...] GFR. Performed By: #### 1 9123-9, 2777-1, 76705-4 ####[facility]RAW[facility]DSV[facility]LEIA [id number] [address] [place] OF [facility] Glucose [Mass/Vol] 118 mg/dL High 74-99 [facility] [facility] Comment on above: Order Comment: Shira feldman Type: BLOOD SPECIMENOrdering Facility: [facility] Address: [address] [address] Result Comment: The [place] [employer] (ADA) provides guidance for cutoff [...] Standards of Medical Care in Diabetes 2016, [place] [employer]. Diabetes Care. 2016.39(Suppl 1). Performed By: #### 1 9123-9, 2777-, 99787-6 ####[facility] LABORATORYCLIA [id number] [place] [address] [place] Potassium [Moles/Vol] 3.6 mmol/L Low 3.7-5.1 [facility] Comment on above: Order Comment: Shira feldman Type: BLOOD SPECIMENOrdering Facility: [facility] Address: [address] [place] [address] Performed By: #### 1 9123-9, 2777-, 03991-3 ####[facility] LABORATORYCLIA [id number] [address] STATES OF [facility] Sodium [Moles/Vol] 140 mmol/L Normal 136-144 [facility] Comment on above: Order Comment: Shira feldman Type: BLOOD SPECIMENOrdering Facility: [facility] Address: [address] [place] [address] Performed By: #### 1 9123-9, 27711-04, 09569-1 ####[facility] LABORATORYCLIA [id number] [address] [place] Urea nitrogen [Mass/Vol] 15 mg/dL Normal 9-24 [facility] Comment on above: Order Comment: Shira feldman Type: BLOOD SPECIMENOrdering Facility: [facility] Address: [address] [place] [address] Performed By: #### 1 9123-9, 2777, 91651-0 ####[facility] LABORATORYCLIA [id number] [address] [place] CASE MANAGEMon 07-13-2021 CASE MANAGEM Normal [facility] CBC panel Auto (Bld)on 07-13 Erythrocyte distribution width (RBC) [Ratio] 16.2 % High 11.5-15.0 [facility] Comment on above: Order Comment: Speci men Type: BLOOD SPECIMENOrdering Facility: [facility] Address: [address] [place] [address] Performed By: #### 5 8410-2 ####[facility] LABORATORYCLIA [id number] [address] OF [facility] Hematocrit (Bld) [Volume fraction] 29.5 % Low 39.0-51.0 [facility] Comment on above: Order Comment: Speci men Type: BLOOD SPECIMENOrdering Facility: [facility] Address: [address] [place] [address] Performed By: #### 5 8410-2 ####[facility] LABORATORYCLIA [id number] [address] Hemoglobin (Bld) [Mass/Vol] 8.9 g/dL Low 13.0-17.0 [facility] Comment on above: Order Comment: Speci men Type: BLOOD SPECIMENOrdering Facility: [facility] Address: [address] [place] [address] Performed By: #### 5 8410-2 ####[facility] LABORATORYCLIA [id number] [address] OF [facility] MCH (RBC) [Entitic mass] 27.8 pg Normal 26.0-34.0 [facility] Comment on above: Order Comment: Speci men Type: BLOOD SPECIMENOrdering Facility: [facility] Address: [address] [place] [address] Performed By: #### 5 8410-2 ####[facility] LABORATORYCLIA [id number] [address] [place] MCHC (RBC) [Mass/Vol] 30.2 g/dL Low 30.5-36.0 [facility] Comment on above: Order Comment: Speci men Type: BLOOD SPECIMENOrdering Facility: [facility] Address: [address] [place] [address] Performed By: #### 5 8410-2 ####[facility] LABORATORYCLIA [id number] [address] [place] MCV (RBC) [Entitic vol] 92.2 fL Normal 80.0-100.0 [facility] Comment on above: Order Comment: Speci men Type: BLOOD SPECIMENOrdering Facility: [facility] Address: [address] [place] [address] Performed By: #### 5 8410-2 ####[facility] LABORATORYCLIA [id number] [address] Nucleated RBC (Bld) [#/Vol] 10*3/uL Normal <0.01 [facility] Comment on above: Order Comment: Speci men Type: BLOOD SPECIMENOrdering Facility: [facility] Address: [address] [place] [address] Performed By: #### 5 8410-2 ####[facility] LABORATORYCLIA [id number] [address] Platelet mean volume (Bld) [Entitic vol] 9.8 fL Normal 9.0-12.7 [facility] Comment on above: Order Comment: Speci men Type: BLOOD SPECIMENOrdering Facility: [facility] Address: [address] [place] [address] Performed By: #### 5 8410-2 ####[facility]ORATORYCLIA [id number] [address] Platelets (Bld) [#/Vol] 356 10*3/uL Normal 150-400 [facility] Comment on above: Order Comment: Speci men Type: BLOOD SPECIMENOrdering Facility: [facility] Address: [address] [place] [address] Performed By: #### 5 8410-2 ####[facility]ORATORYCLIA [id number] [address] [place] RBC (Bld) [#/Vol] 3.20 10*6/uL Low 4.20-6.00 [facility] Comment on above: Order Comment: Speci men Type: BLOOD SPECIMENOrdering Facility: [facility] Address: [address] [place] [address] Performed By: #### 5 8410-2 ####[facility]ORATORYCLIA [id number] [address] [place] WBC (Bld) [#/Vol] 9.20 10*3/uL Normal 3.70-11.00 [facility] Comment on above: Order Comment: Speci men Type: BLOOD SPECIMENOrdering Facility: [facility] Address: [address] [place] [address] Performed By: #### 5 8410-2 ####[facility] LABORATORYCLIA [id number] [address] CONSULT PROGon 07-13-2021 CONSULT PROG Normal [facility] CONSULT PROG Normal [facility] CONSULT PROG Normal [facility] Magnesium SerPl-mCncon 07-13 Magnesium [Mass/Vol] 2.1 mg/dL Normal 1.7-2.3 [facility] Comment on above: Order Comment: Speci men Type: BLOOD SPECIMENOrdering Facility: [facility] Address: [address] [place] [address] Performed By: #### 1 9123-9, 2777-1, 11103-1 ####[facility]ORATORYCLIA [id number] [address] Phosphate SerPl-mCncon 07-13 Phosphate [Mass/Vol] 3.7 mg/dL Normal 2.7-4.8 [facility] Comment on above: Order Comment: Speci men Type: BLOOD SPECIMENOrdering Facility: [facility] Address: [address] [place] [address] Performed By: #### 1 9123-9, 2777-1, 77051-0 ####[facility] LABORATORYCLIA [id number] [address] [place] THERAPY NTon 07-13-2021 THERAPY NT Normal [facility] THERAPY NT Normal [facility] Vancomycin random [Mass/Vol] on 07-13-2021 Vancomycin [Mass/Vol] 31.7 ug/mL High 10.0-20.0 [facility] Comment on above: Order Comment: Speci men Type: BLOOD SPECIMENOrdering Facility: [facility] Address: [address] [place] [address] Result Comment: Refe rence ranges and high/low indicator flags are provided as general guidelines only. The treating physician must determine appropriate target levels/dosing based on the specific clinical situation. Performed By: #### 4 091-5 ####[facility]ORATORYCLIA [id number] [address] STATES OF [facility] aPTT PPPon 07-13-2021 aPTT Coag (PPP) [Time] 47.3 s High 23.0-32.4 [facility] Comment on above: Order Comment: Speci men Type: BLOOD SPECIMENOrdering Facility: [facility] Address: [address] [place] [address] Performed By: #### 1 4979-9 ####[facility]ORATORYCLIA [id number] [address] STATES OF [facility] aPTT Coag (PPP) [Time] 51.2 s High 23.0-32.4 [facility] Comment on above: Order Comment: Speci men Type: BLOOD SPECIMENOrdering Facility: [facility] Address: [address] [place] [address] Performed By: #### 1 4979-9 ####[facility]ORATORYCLIA [id number] [address] [place] aPTT Coag (PPP) [Time] 47.5 s High 23.0-32.4 [facility] Comment on above: Order Comment: Speci men Type: BLOOD SPECIMENOrdering Facility: [facility] Address: [address] [place] [address] Performed By: #### 1 4979-9 ####[facility] LABORATORYCLIA [id number] [place] [address] [place] Basic metabolic 2000 panelon 07-12-2021 Anion gap [Moles/Vol] 7 mmol/L Low 9-18 [facility] Comment on above: Order Comment: Speci men Type: BLOOD SPECIMENOrdering Facility: [facility] Address: [address] [place] [address] Performed By: #### 1 9123-9, 2777-1, 94689-4 ####[facility]ORATORYCLIA [id number] [place] [address] [place] Calcium [Mass/Vol] 8.3 mg/dL Low 8.5-10.2 [facility] Comment on above: Order Comment: Speci men Type: BLOOD SPECIMENOrdering Facility: [facility] Address: [address] [place] [address] Performed By: #### 1 9123-9, 2777-1, 35675-8 ####[facility]ORATORYCLIA [id number] [address] [place] Chloride [Moles/Vol] 101 mmol/L Normal 97-105 [facility] Comment on above: Order Comment: Speci men Type: BLOOD SPECIMENOrdering Facility: [facility] Address: [address] [place] [address] Performed By: #### 1 9123-9, 2777-1, 22060-3 ####[facility]ORATORYCLIA [id number] [place] [address] [place] CO2 [Moles/Vol] 32 mmol/L High 22-30 [facility] Comment on above: Order Comment: Speci men Type: BLOOD SPECIMENOrdering Facility: [facility] Address: [address] [place] [address] Performed By: #### 1 9123-9, 2777-1, 95231-1 ####[facility]ORATORYCLIA [id number] [place] [address] [place] Creatinine [Mass/Vol] 0.70 mg/dL Low 0.73-1.22 [facility] Comment on above: Order Comment: Speci men Type: BLOOD SPECIMENOrdering Facility: [facility] Address: [address] [place], [place] [address] Performed By: #### 1 9123-9, 2777-1, 96782-8 ####[facility]CLIA [id number] [place] [address] [place] ESTIMATED GLOMERULAR FILTRATION RATE 100 mL/min/1.73m??? Normal >=60 [facility] Comment on above: Order Comment: Shira francia Type: BLOOD SPECIMENOrdering Facility: [facility] Address: [address] [place], [place] [address] Result Comment: Luzmaria mated Glomerular Filtration Rate [...] GFR. Performed By: #### 1 9123-9, 2777-1, 64913-9 ####[facility] LABORATORYIA [id number] [place] [address] [place] Glucose [Mass/Vol] 104 mg/dL High 74-99 [facility] Comment on above: Order Comment: Shira feldman Type: BLOOD SPECIMENOrdering Facility: [facility] Address: [address] [place] [address] Result Comment: The [place] [employer] (ADA) provides guidance for cutoff [...] Standards of Medical Care in Diabetes 2016, [place] [employer]. Diabetes Care. 2016.39(Suppl 1). Performed By: #### 1 9123-9, 2777-1, 48620-8 ####[facility]ORATORYCLIA [id number] [address] [place] Potassium [Moles/Vol] 3.7 mmol/L Normal 3.7-5.1 [facility] Comment on above: Order Comment: Speci men Type: BLOOD SPECIMENOrdering Facility: [facility] Address: [address] [place] [address] Performed By: #### 1 9123-9, 2777-, 30633-4 ####[facility] LABORATORYCLIA [id number] [address] STATES OF [facility] Sodium [Moles/Vol] 140 mmol/L Normal 136-144 [facility] Comment on above: Order Comment: Speci men Type: BLOOD SPECIMENOrdering Facility: [facility] Address: [address] [place] [address] Performed By: #### 1 9123-9, 2777-, 87670-7 ####[facility] [id number] [address] STATES OF [facility] Urea nitrogen [Mass/Vol] 12 mg/dL Normal 9-24 [facility] Comment on above: Order Comment: Speci men Type: BLOOD SPECIMENOrdering Facility: [facility] Address: [address] [place] [address] Performed By: #### 1 9123-9, 2777-, 03612-2 ####[facility]ORATORYCLIA [id number] [address] [place] CBC panel Auto (Bld)on 07-12 Erythrocyte distribution width (RBC) [Ratio] 16.1 % High 11.5-15.0 [facility] Comment on above: Order Comment: Speci men Type: BLOOD SPECIMENOrdering Facility: [facility] Address: [address] [place] [address] Performed By: #### 5 8410-2 ####[facility] LABORATORYCLIA [id number] [address] OF [facility] Hematocrit (Bld) [Volume fraction] 28.2 % Low 39.0-51.0 [facility] Comment on above: Order Comment: Speci men Type: BLOOD SPECIMENOrdering Facility: [facility] Address: [address] [place] [address] Performed By: #### 5 8410-2 ####[facility]ORATORYCLIA [id number] [address] [facility] Hemoglobin (Bld) [Mass/Vol] 8.5 g/dL Low 13.0-17.0 [facility] Comment on above: Order Comment: Speci men Type: BLOOD SPECIMENOrdering Facility: [facility] Address: [address] [place] [address] Performed By: #### 5 8410-2 ####[facility]ORATORYCLIA [id number] [address] MCH (RBC) [Entitic mass] 26.8 pg Normal 26.0-34.0 [facility] Comment on above: Order Comment: Speci men Type: BLOOD SPECIMENOrdering Facility: [facility] Address: [address] [place] [address] Performed By: #### 5 8410-2 ####[facility]ORATORYCLIA [id number] [address] [place] MCHC (RBC) [Mass/Vol] 30.1 g/dL Low 30.5-36.0 [facility] Comment on above: Order Comment: Speci men Type: BLOOD SPECIMENOrdering Facility: [facility] Address: [address] [place] [address] Performed By: #### 5 8410-2 ####[facility]ORATORYCLIA [id number] [address] MCV (RBC) [Entitic vol] 89.0 fL Normal 80.0-100.0 [facility] Comment on above: Order Comment: Speci men Type: BLOOD SPECIMENOrdering Facility: [facility] Address: [address] Performed By: #### 5 8410-2 ####[facility] LABORATORYCLIA [id number] [address] Nucleated RBC (Bld) [#/Vol] 10*3/uL Normal <0.01 [facility] Comment on above: Order Comment: Speci men Type: BLOOD SPECIMENOrdering Facility: [facility] Address: [address] [place] [address] Performed By: #### 5 8410-2 ####[facility]ORATORYCLIA [id number] [address] Platelet mean volume (Bld) [Entitic vol] 9.6 fL Normal 9.0-12.7 [facility] Comment on above: Order Comment: Speci men Type: BLOOD SPECIMENOrdering Facility: [facility] Address: [address] [place] [address] Performed By: #### 5 8410-2 ####[facility]ORATORYCLIA [id number] [address] Platelets (Bld) [#/Vol] 340 10*3/uL Normal 150-400 [facility] Comment on above: Order Comment: Speci men Type: BLOOD SPECIMENOrdering Facility: [facility] Address: [address] [place] [address] Performed By: #### 5 8410-2 ####[facility]ORATORYCLIA [id number] [address] RBC (Bld) [#/Vol] 3.17 10*6/uL Low 4.20-6.00 [facility] Comment on above: Order Comment: Speci men Type: BLOOD SPECIMENOrdering Facility: [facility] Address: [address] [place] [address] Performed By: #### 5 8410-2 ####[facility]ORATORYCLIA [id number] [address] WBC (Bld) [#/Vol] 8.66 10*3/uL Normal 3.70-11.00 [facility] Comment on above: Order Comment: Speci men Type: BLOOD SPECIMENOrdering Facility: [facility] Address: [address] [place] [address] Performed By: #### 5 8410-2 ####[facility]ORATORYCLIA [id number] [address] CONSULTon 07-12-2021 CONSULT Normal [facility] CONSULT PROGon 07-12-2021 CONSULT PROG Normal [facility] Magnesium SerPl-ncon 07-12 Magnesium [Mass/Vol] 2.1 mg/dL Normal 1.7-2.3 [facility] Comment on above: Order Comment: Speci men Type: BLOOD SPECIMENOrdering Facility: [facility] Address: [address] [place] [address] Performed By: #### 1 9123-9, 2777-1, 18585-5 ####[facility]ATORYCLIA [id number] [address] NURSING PROGon 07-12-2021 NURSING PROG Normal [facility] Phosphate SerPl-mCncon 07-12 Phosphate [Mass/Vol] 3.1 mg/dL Normal 2.7-4.8 [facility] Comment on above: Order Comment: Speci men Type: BLOOD SPECIMENOrdering Facility: [facility] Address: [address] [place] [address] Performed By: #### 1 9123-9, 2777-1, 38929-0 ####[facility]ORATORYCLIA [id number] [address] THERAPY NTon 07-12-2021 THERAPY NT Normal [facility] aPTT PPPon 07-12-2021 aPTT Coag (PPP) [Time] 49.5 s High 23.0-32.4 [facility] Comment on above: Order Comment: Speci men Type: BLOOD SPECIMENOrdering Facility: [facility] Address: [address] [place] [address] Performed By: #### 1 4979-9 ####[facility] LABORATORYCLIA [id number] [address] aPTT Coag (PPP) [Time] 68.0 s High 23.0-32.4 [facility] Comment on above: Order Comment: Speci men Type: BLOOD SPECIMENOrdering Facility: [facility] Address: [address] [place] [address] Performed By: #### 1 4979-9 ####[facility]ORATORYCLIA [id number] [address] aPTT Coag (PPP) [Time] 80.0 s High 23.0-32.4 [facility] Comment on above: Order Comment: Speci men Type: BLOOD SPECIMENOrdering Facility: [facility] Address: [address] [place] [address] Performed By: #### 1 4979-9 ####[facility] LABORATORYCLIA [id number] [address] OF [facility] CASE MGT INIT ASSESon 2021 CASE MGT INIT ASSES Normal [facility] CBC panel Auto (Bld)on 07-11 Erythrocyte distribution width (RBC) [Ratio] 16.3 % High 11.5-15.0 [facility] Comment on above: Order Comment: Speci men Type: BLOOD SPECIMENOrdering Facility: [facility] Address: [address] [place] [address] Performed By: #### 5 8410-2 ####[facility] LABORATORYCLIA [id number] [address] Hematocrit (Bld) [Volume fraction] 28.3 % Low 39.0-51.0 [facility] Comment on above: Order Comment: Speci men Type: BLOOD SPECIMENOrdering Facility: [facility] Address: [address] [place] [address] Performed By: #### 5 8410-2 ####[facility]ORATORYCLIA [id number] [address] Hemoglobin (Bld) [Mass/Vol] 8.8 g/dL Low 13.0-17.0 [facility] Comment on above: Order Comment: Speci men Type: BLOOD SPECIMENOrdering Facility: [facility] Address: [address] [place] [address] Performed By: #### 5 8410-2 ####[facility]ORATORYCLIA [id number] [address] MCH (RBC) [Entitic mass] 27.4 pg Normal 26.0-34.0 [facility] Comment on above: Order Comment: Speci men Type: BLOOD SPECIMENOrdering Facility: [facility] Address: [address] [place] [address] Performed By: #### 5 8410-2 ####[facility]ATORYCLIA [id number] [address] MCHC (RBC) [Mass/Vol] 31.1 g/dL Normal 30.5-36.0 [facility] Comment on above: Order Comment: Speci men Type: BLOOD SPECIMENOrdering Facility: [facility] Address: [address] [place] [address] Performed By: #### 5 8410-2 ####[facility] LABORATORYCLIA [id number] [address] MCV (RBC) [Entitic vol] 88.2 fL Normal 80.0-100.0 [facility] Comment on above: Order Comment: Speci men Type: BLOOD SPECIMENOrdering Facility: [facility] Address: [address] [place] [address] Performed By: #### 5 8410-2 ####[facility]ORATORYCLIA [id number] [address] Nucleated RBC (Bld) [#/Vol] 10*3/uL Normal <0.01 [facility] Comment on above: Order Comment: Speci men Type: BLOOD SPECIMENOrdering Facility: [facility] Address: [address] [place] [address] Performed By: #### 5 8410-2 ####[facility] LABORATORYCLIA [id number] [address] [place] Platelet mean volume (Bld) [Entitic vol] 9.7 fL Normal 9.0-12.7 [facility] Comment on above: Order Comment: Speci men Type: BLOOD SPECIMENOrdering Facility: [facility] Address: [address] [place] [address] Performed By: #### 5 8410-2 ####[facility] LABORATORYCLIA [id number] [address] [place] Platelets (Bld) [#/Vol] 315 10*3/uL Normal 150-400 [facility] Comment on above: Order Comment: Speci men Type: BLOOD SPECIMENOrdering Facility: [facility] Address: [address] [place] [address] Performed By: #### 5 8410-2 ####[facility] LABORATORYCLIA [id number] [place] [address] [place] RBC (Bld) [#/Vol] 3.21 10*6/uL Low 4.20-6.00 [facility] Comment on above: Order Comment: Speci men Type: BLOOD SPECIMENOrdering Facility: [facility] Address: [address] [place], [place] [address] Performed By: #### 5 8410-2 ####[facility] LABORATORYCLIA [id number] [address] [place] WBC (Bld) [#/Vol] 9.18 10*3/uL Normal 3.70-11.00 [facility] Comment on above: Order Comment: Speci men Type: BLOOD SPECIMENOrdering Facility: [facility] Address: [address] [place] [address] Performed By: #### 5 8410-2 ####[facility] LABORATORYCLIA [id number] CONSULT PROGon 07-11-2021 CONSULT PROG Normal [facility] CT BRAIN WO IVCONon 07-12-[address] BRAIN WO IVCON Normal [facility] Magnesium SerPl-mCncon 07-11 Magnesium [Mass/Vol] 2.1 mg/dL Normal 1.7-2.3 [facility] Comment on above: Order Comment: Speci men Type: BLOOD SPECIMENOrdering Facility: [facility] Address: [address] [place] [address] Performed By: #### 1 9123-9, 2777-1 ####[facility] LABORATORYCLIA [id number] [address] NURSING PROGon 07-11-2021 NURSING PROG Normal [facility] NURSING PROG Normal [facility] Phosphate SerPl-ncon 07-11 Phosphate [Mass/Vol] 3.4 mg/dL Normal 2.7-4.8 [facility] Comment on above: Order Comment: Speci men Type: BLOOD SPECIMENOrdering Facility: [facility] Address: [address] [place] [address] Performed By: #### 1 9123-9, 2777-1 ####[facility] LABORATORYCLIA [id number] [address] THERAPY NTon 07-11-2021 THERAPY NT Normal [facility] Vancomycin random [Mass/Vol] on 07-11-2021 Vancomycin [Mass/Vol] 28.6 ug/mL High 10.0-20.0 [facility] Comment on above: Order Comment: Speci men Type: BLOOD SPECIMENOrdering Facility: [facility] Address: [address] [place] [address] Result Comment: Refe rence ranges and high/low indicator flags are provided as general guidelines only. The treating physician must determine appropriate target levels/dosing based on the specific clinical situation. Performed By: #### 4 091-5 ####[facility] LABORATORYCLIA [id number] [place] [address] [place] aPTT PPPon 07-11-2021 aPTT Coag (PPP) [Time] 62.0 s High 23.0-32.4 [facility] Comment on above: Order Comment: Speci men Type: BLOOD SPECIMENOrdering Facility: [facility] Address: [address] [place] [address] Performed By: #### 1 4979-9 ####[facility] LABORATORYCLIA [id number] [address] [place] aPTT Coag (PPP) [Time] 52.7 s High 23.0-32.4 [facility] Comment on above: Order Comment: Speci men Type: BLOOD SPECIMENOrdering Facility: [facility] Address: [address] [place] [address] Performed By: #### 1 4979-9 ####[facility] LABORATORYCLIA [id number] [address] STATES [facility] aPTT Coag (PPP) [Time] 29.9 s Normal 23.0-32.4 [facility] Comment on above: Order Comment: Speci men Type: BLOOD SPECIMENOrdering Facility: [facility] Address: [address] [place] [address] Performed By: #### 1 4979-9 ####[facility] LABORATORYCLIA [id number] [place] [address] [place] Basic metabolic 2000 panelon 07-10-2021 Anion gap [Moles/Vol] 14 mmol/L Normal 9-18 [facility] Comment on above: Order Comment: Speci men Type: BLOOD SPECIMENOrdering Facility: [facility] Address: [address] [place] [address] Performed By: #### 1 9123-9, 2777-1, 52647-3 ####[facility] LABORATORYCLIA [id number] [place] [address] [place] Calcium [Mass/Vol] 8.5 mg/dL Normal 8.5-10.2 [facility] Comment on above: Order Comment: Speci men Type: BLOOD SPECIMENOrdering Facility: [facility] Address: [address] [place] [address] Performed By: #### 1 9123-9, 27711-04, 90583-3 ####[facility] LABORATORYCLIA [id number] [place] [address] [place] Chloride [Moles/Vol] 100 mmol/L Normal 97-105 [facility] Comment on above: Order Comment: Speci men Type: BLOOD SPECIMENOrdering Facility: [facility] Address: [address] [place] [address] Performed By: #### 1 9123-9, 2776-05, ####[facility] LABORATORYCLIA [id number] [place] [address] [place] CO2 [Moles/Vol] 27 mmol/L Normal 22-30 [facility] Comment on above: Order Comment: Speci men Type: BLOOD SPECIMENOrdering Facility: [facility] Address: [address] [place] [address] Performed By: #### 1 9123-9, 2776-05, ####[facility] LABORATORYCLIA [id number] [place] [address] [place] Creatinine [Mass/Vol] 0.66 mg/dL Low 0.73-1.22 [facility] Comment on above: Order Comment: Speci men Type: BLOOD SPECIMENOrdering Facility: [facility] Address: [address] [place] [address] Performed By: #### 1 9123-9, 2776-05, 15431-9 ####[facility] LABORATORYCLIA [id number] [address] [place] ESTIMATED GLOMERULAR FILTRATION RATE 102 mL/min/1.73m??? Normal >=60 [facility] Comment on above: Order Comment: Speci men Type: BLOOD SPECIMENOrdering Facility: [facility] Address: [address] [id number] Result Comment: Luzmaria mated Glomerular Filtration Rate [...] GFR. Performed By: #### 1 9123-9, 2777-, 34883-7 ####[facility]NACLIA [id number] [place] [address] [place] Glucose [Mass/Vol] 93 mg/dL Normal 74-99 [facility] Comment on above: Order Comment: Speccara men Type: BLOOD SPECIMENOrdering Facility: [facility] Address: [address] [place] [address] Result Comment: The [place] [employer] (ADA) provides guidance for cutoff [...] Standards of Medical Care in Diabetes 2016, [place] [employer]. Diabetes Care. 2016.39(Suppl 1). Performed By: #### 1 9123-9, 2777-, 46648-2 ####[facility] LABORATORYCLIA [id number] [place] [address] [place] Potassium [Moles/Vol] 3.5 mmol/L Low 3.7-5.1 [facility] Comment on above: Order Comment: Speccara men Type: BLOOD SPECIMENOrdering Facility: [facility] Address: [address] [phone] Performed By: #### 1 9123-9, 2777-, 06132-1 ####[facility] LABORATORYCLIA [id number] [address] STATES [facility] Sodium [Moles/Vol] 141 mmol/L Normal 136-144 [facility] Comment on above: Order Comment: Speci men Type: BLOOD SPECIMENOrdering Facility: [facility] Address: [address] [place] [address] Performed By: #### 1 9123-9, 2777-, 46592-7 ####[facility] LABORATORYCLIA [id number] [address] [place] Urea nitrogen [Mass/Vol] 11 mg/dL Normal 9-24 [facility] Comment on above: Order Comment: Speci men Type: BLOOD SPECIMENOrdering Facility: [facility] Address: [address] [place] [address] Performed By: #### 1 9123-9, 2777, 48562-9 ####[facility] LABORATORYCLIA [id number] [address] STATES [facility] CBC panel Auto (Bld)on 07-10 Erythrocyte distribution width (RBC) [Ratio] 16.2 % High 11.5-15.0 [facility] Comment on above: Order Comment: Speci men Type: BLOOD SPECIMENOrdering Facility: [facility] Address: [address] [place] [address] Performed By: #### 5 8410-2 ####[facility] LABORATORYCLIA [id number] [address] Hematocrit (Bld) [Volume fraction] 30.6 % Low 39.0-51.0 [facility] Comment on above: Order Comment: Speci men Type: BLOOD SPECIMENOrdering Facility: [facility] Address: [address] [place] [address] Performed By: #### 5 8410-2 ####[facility] LABORATORYCLIA [id number] [address] Hemoglobin (Bld) [Mass/Vol] 9.6 g/dL Low 13.0-17.0 [facility] Comment on above: Order Comment: Speci men Type: BLOOD SPECIMENOrdering Facility: [facility] Address: [address] [place] [address] Performed By: #### 5 8410-2 ####[facility] LABORATORYCLIA [id number] [address] MCH (RBC) [Entitic mass] 28.3 pg Normal 26.0-34.0 [facility] Comment on above: Order Comment: Speci men Type: BLOOD SPECIMENOrdering Facility: [facility] Address: [address] [place] [address] Performed By: #### 5 8410-2 ####[facility] LABORATORYCLIA [id number] [address] STATES OF [facility] MCHC (RBC) [Mass/Vol] 31.4 g/dL Normal 30.5-36.0 [facility] Comment on above: Order Comment: Speci men Type: BLOOD SPECIMENOrdering Facility: [facility] Address: [address] [place] [address] Performed By: #### 5 8410-2 ####[facility] LABORATORYCLIA [id number] [address] MCV (RBC) [Entitic vol] 90.3 fL Normal 80.0-100.0 [facility] Comment on above: Order Comment: Speci men Type: BLOOD SPECIMENOrdering Facility: [facility] Address: [address] [place] [address] Performed By: #### 5 8410-2 ####[facility] LABORATORYCLIA [id number] [address] Nucleated RBC (Bld) [#/Vol] 10*3/uL Normal <0.01 [facility] Comment on above: Order Comment: Speci men Type: BLOOD SPECIMENOrdering Facility: [facility] Address: [address] [place] [address] Performed By: #### 5 8410-2 ####[facility] LABORATORYCLIA [id number] [address] Platelet mean volume (Bld) [Entitic vol] 9.7 fL Normal 9.0-12.7 [facility] Comment on above: Order Comment: Speci men Type: BLOOD SPECIMENOrdering Facility: [facility] Address: [address] [place] [address] Performed By: #### 5 8410-2 ####[facility] LABORATORYCLIA [id number] [address] [place] Platelets (Bld) [#/Vol] 306 10*3/uL Normal 150-400 [facility] Comment on above: Order Comment: Speci men Type: BLOOD SPECIMENOrdering Facility: [facility] Address: [address] [place] [address] Performed By: #### 5 8410-2 ####[facility] LABORATORYCLIA [id number] [place] [address] [place] RBC (Bld) [#/Vol] 3.39 10*6/uL Low 4.20-6.00 [facility] Comment on above: Order Comment: Speci men Type: BLOOD SPECIMENOrdering Facility: [facility] Address: [address] [place] [address] Performed By: #### 5 8410-2 ####[facility] LABORATORYCLIA [id number] [place] [address] [place] WBC (Bld) [#/Vol] 9.81 10*3/uL Normal 3.70-11.00 [facility] Comment on above: Order Comment: Speci men Type: BLOOD SPECIMENOrdering Facility: [facility] Address: [address] [place] [address] Performed By: #### 5 8410-2 ####[facility] LABORATORYCLIA [id number] [address] [place] CONSULTon 07-10-2021 CONSULT Normal [facility] CONSULT Normal [facility] Magnesium SerPl-mCncon 07-10 Magnesium [Mass/Vol] 1.9 mg/dL Normal 1.7-2.3 [facility] Comment on above: Order Comment: Speci men Type: BLOOD SPECIMENOrdering Facility: [facility] Address: [address] [place] [address] Performed By: #### 1 9123-9, 2777-1, 61278-6 ####[facility] LABORATORYCLIA [id number] [address] [place] NURSING PROGon 07-10-2021 NURSING PROG Normal [facility] NURSING PROG Normal [facility] NUTRITIONon 07-10-2021 NUTRITION Normal [facility] Phosphate SerPl-mCncon 07-10 Phosphate [Mass/Vol] 3.6 mg/dL Normal 2.7-4.8 [facility] Comment on above: Order Comment: Speci men Type: BLOOD SPECIMENOrdering Facility: [facility] Address: [address] [place] [address] Performed By: #### 1 9123-9, 2777-1, 91880-0 ####[facility] LABORATORYCLIA [id number] [place] [address] [place] US DVT LOWER BILon US DVT LOWER RAINER Normal [facility] aPTT PPPon 07-10-2021 aPTT Coag (PPP) [Time] 28.8 s Normal 23.0-32.4 [facility] Comment on above: Order Comment: Speci men Type: BLOOD SPECIMENOrdering Facility: [facility] Address: [address] [place] [address] Performed By: #### 1 4979-9 ####[facility] LABORATORYCLIA [id number] [place] [address] [place] aPTT Coag (PPP) [Time] 28.4 s Normal 23.0-32.4 [facility] Comment on above: Order Comment: Speci men Type: BLOOD SPECIMENOrdering Facility: [facility] Address: [address] [place] [address] Performed By: #### 1 4979-9 ####[facility] LABORATORYCLIA [id number] [address] [id number] [place] ALLIED HEALTHon 07-09-2021 ALLIED HEALTH Normal [facility] Basic metabolic 2000 panelon 07-09-2021 Anion gap [Moles/Vol] 9 mmol/L Normal 9-18 [facility] Comment on above: Order Comment: Speci men Type: BLOOD SPECIMENOrdering Facility: [facility] Address: [address] [place] [address] Performed By: #### 1 9123-9, 2777-1, 84038-5 ####[facility] LABORATORYCLIA [id number] [place] [address] [place] Calcium [Mass/Vol] 8.3 mg/dL Low 8.5-10.2 [facility] Comment on above: Order Comment: Speci men Type: BLOOD SPECIMENOrdering Facility: [facility] Address: [address] [place] [address] Performed By: #### 1 9123-9, 2777-1, 05598-4 ####[facility] LABORATORYCLIA [id number] [place] [address] [place] Chloride [Moles/Vol] 100 mmol/L Normal 97-105 [facility] Comment on above: Order Comment: Speci men Type: BLOOD SPECIMENOrdering Facility: [facility] Address: [address] [place] [address] Performed By: #### 1 9123-9, 2777-1, 57606-8 ####[facility] LABORATORYCLIA [id number] [place] [address] [place] CO2 [Moles/Vol] 29 mmol/L Normal 22-30 [facility] Comment on above: Order Comment: Speci men Type: BLOOD SPECIMENOrdering Facility: [facility] Address: [address] [place] [address] Performed By: #### 1 9123-9, 2777-1, 23739-0 ####[facility]NACLIA [id number] [place] [address] [place] [facility] Creatinine [Mass/Vol] 0.61 mg/dL Low 0.73-1.22 [facility] Comment on above: Order Comment: Speccara feldman Type: BLOOD SPECIMENOrdering Facility: [facility] Address: [address] [place] [address] Performed By: #### 1 9123-9, 2777-1, 88506-0 ####[facility] CRAWFORDSVILLEIA [id number] [address] OF [facility] ESTIMATED GLOMERULAR FILTRATION RATE 104 mL/min/1.73m??? Normal >=60 [facility] Comment on above: Order Comment: Shira feldman Type: BLOOD SPECIMENOrdering Facility: [facility] Address: [address] [place] [address] Result Comment: Luzmaria mated Glomerular Filtration Rate [...] GFR. Performed By: #### 1 9123-9, 2777-1, 47927-5 ####[facility] LABORATORYCLIA [id number] [address] [id number] [place] Glucose [Mass/Vol] 106 mg/dL High 74-99 [facility] Comment on above: Order Comment: Speccara francia Type: BLOOD SPECIMENOrdering Facility: [facility] Address: [address] Result Comment: The [place] [employer] (ADA) provides guidance for cutoff [...] Standards of Medical Care in Diabetes 2016, [place] [employer]. Diabetes Care. 2016.39(Suppl 1). Performed By: #### 1 9123-9, 2777-1, 78953-9 ####[facility] LABORATORYCLIA [id number] [address] [place] Potassium [Moles/Vol] 3.6 mmol/L Low 3.7-5.1 [facility] Comment on above: Order Comment: Shira feldman Type: BLOOD SPECIMENOrdering Facility: [facility] Address: [address] [place] [address] Performed By: #### 1 9123-9, 2777, 79536-2 ####[facility] CRAWFORDSVILLEIA [id number] [address] STATES OF [facility] Sodium [Moles/Vol] 138 mmol/L Normal 136-144 [facility] Comment on above: Order Comment: Shira feldman Type: BLOOD SPECIMENOrdering Facility: [facility] Address: [address] [place] [address] Performed By: #### 1 9123-9, 2777, 05150-9 ####[facility]NA[facility]IA [id number] [address] STATES [facility] Urea nitrogen [Mass/Vol] 12 mg/dL Normal 9-24 [facility] Comment on above: Order Comment: Shira feldman Type: BLOOD SPECIMENOrdering Facility: [facility] Address: [address] [place] [address] Performed By: #### 1 9123-9, 2777, 77555-2 ####[facility] LABORATORYCLIA [id number] [address] [place] CBC panel Auto (Bld)on 07-09 Erythrocyte distribution width (RBC) [Ratio] 16.2 % High 11.5-15.0 [facility] Comment on above: Order Comment: Speci men Type: BLOOD SPECIMENOrdering Facility: [facility] Address: [address] [place] [address] Performed By: #### 5 8410-2 ####[facility] LABORATORYCLIA [id number] [address] Hematocrit (Bld) [Volume fraction] 29.0 % Low 39.0-51.0 [facility] Comment on above: Order Comment: Speci men Type: BLOOD SPECIMENOrdering Facility: [facility] Address: [address] [place] [address] Performed By: #### 5 8410-2 ####[facility] LABORATORYCLIA [id number] [address] OF [facility] Hemoglobin (Bld) [Mass/Vol] 8.8 g/dL Low 13.0-17.0 [facility] Comment on above: Order Comment: Speci men Type: BLOOD SPECIMENOrdering Facility: [facility] Address: [address] [place] [address] Performed By: #### 5 8410-2 ####[facility] LABORATORYCLIA [id number] [address] MCH (RBC) [Entitic mass] 27.0 pg Normal 26.0-34.0 [facility] Comment on above: Order Comment: Speci men Type: BLOOD SPECIMENOrdering Facility: [facility] Address: [address] [place] [address] Performed By: #### 5 8410-2 ####[facility] LABORATORYCLIA [id number] [address] MCHC (RBC) [Mass/Vol] 30.3 g/dL Low 30.5-36.0 [facility] Comment on above: Order Comment: Speci men Type: BLOOD SPECIMENOrdering Facility: [facility] Address: [address] [place] [address] Performed By: #### 5 8410-2 ####[facility] LABORATORYCLIA [id number] [address] MCV (RBC) [Entitic vol] 89.0 fL Normal 80.0-100.0 [facility] Comment on above: Order Comment: Speci men Type: BLOOD SPECIMENOrdering Facility: [facility] Address: [address] [place] [address] Performed By: #### 5 8410-2 ####[facility] LABORATORYCLIA [id number] [address] Nucleated RBC (Bld) [#/Vol] 10*3/uL Normal <0.01 [facility] Comment on above: Order Comment: Speci men Type: BLOOD SPECIMENOrdering Facility: [facility] Address: [address] [place] [address] Performed By: #### 5 8410-2 ####[facility] LABORATORYCLIA [id number] [address] Platelet mean volume (Bld) [Entitic vol] 9.8 fL Normal 9.0-12.7 [facility] Comment on above: Order Comment: Speci men Type: BLOOD SPECIMENOrdering Facility: [facility] Address: [address] [place] [address] Performed By: #### 5 8410-2 ####[facility] LABORATORYCLIA [id number] [address] Platelets (Bld) [#/Vol] 281 10*3/uL Normal 150-400 [facility] Comment on above: Order Comment: Speci men Type: BLOOD SPECIMENOrdering Facility: [facility] Address: [address] [place] [address] Performed By: #### 5 8410-2 ####[facility] LABORATORYCLIA [id number] [address] [place] RBC (Bld) [#/Vol] 3.26 10*6/uL Low 4.20-6.00 [facility] Comment on above: Order Comment: Speci men Type: BLOOD SPECIMENOrdering Facility: [facility] Address: [address] [place] [address] Performed By: #### 5 8410-2 ####[facility] LABORATORYCLIA [id number] [address] STATES OF [facility] WBC (Bld) [#/Vol] 9.12 10*3/uL Normal 3.70-11.00 [facility] Comment on above: Order Comment: Speci men Type: BLOOD SPECIMENOrdering Facility: [facility] Address: [address] [place] [address] Performed By: #### 5 8410-2 ####[facility] LABORATORYCLIA [id number] [address] CONSULT PROGon 07-09-2021 CONSULT PROG Normal [facility] CONSULT PROG Normal [facility] HISTORY PHYSICALon HISTORY PHYSICAL Normal [facility] Magnesium SerPl-mCncon 07-09 Magnesium [Mass/Vol] 1.9 mg/dL Normal 1.7-2.3 [facility] Comment on above: Order Comment: Speci men Type: BLOOD SPECIMENOrdering Facility: [facility] Address: [address] [place] [address] Performed By: #### 1 9123-9, 2777-1, 80341-1 ####[facility] LABORATORYCLIA [id number] [address] Phosphate SerPl-mCncon 07-09 Phosphate [Mass/Vol] 3.6 mg/dL Normal 2.7-4.8 [facility] Comment on above: Order Comment: Speci men Type: BLOOD SPECIMENOrdering Facility: [facility] Address: [address] [place] [address] Performed By: #### 1 9123-9, 2777-1, 10632-7 ####[facility] LABORATORYCLIA [id number] [address] [place] THERAPY NTon 07-09-2021 THERAPY NT Normal [facility] XR ABDOMEN 1V SUPINEon 07-09 XR ABDOMEN 1V SUPINE Normal [facility] ALLIED HEALTHon 07-08-2021 ALLIED HEALTH Normal [facility] ALLIED HEALTH Normal [facility] ALLIED HEALTH Normal [facility] ANES PRE-OPon 07-08-2021 ANES PRE-OP Normal [facility] BRIEF OP NOTon 07-08-2021 BRIEF OP NOT Normal [facility] Bacteria Bld Culton 07-09-19 22 Bacteria identified Cx Nom (Bld) CULTURE, BLOOD: No growth 5 days Normal [facility] Comment on above: Performed By: #### 6 00-7 ####[facility] LABORATORYCLIA [id number] [address] Bacteria identified Cx Nom (Bld) CULTURE, BLOOD: No growth 5 days Normal [facility] Comment on above: Performed By: #### 6 00-7 ####[facility] LABORATORYCLIA [id number] [address] [place] Bacteria CSF Culton 07-09-19 22 Bacteria identified Cx Nom (CSF) CULTURE, CSF: No growth 14 days GRAM STAIN: No organisms seen No Polymorphonuclear Leukocytes Few Red Blood Cells Gram stain performed on cytospun specimen. Normal [facility] Comment on above: Performed By: #### 6 06-4 ####[facility] LABORATORYCLIA [id number] [address] [place] Bacteria Ur Culton 2 Bacteria identified Cx Nom (U) ORGANISM ID: 1 10,000 -<50,000 CFU/ml Proteus species Insignificant colony count. No further workup. ORGANISM ID: 2 <10,000 CFU/ml Normal urogenital chris Normal [facility] Comment on above: Performed By: #### 6 30-4 ####[facility] LABORATORYCLIA [id number] [place] [address] [facility] [place] Bacteria Wnd Culton 07-09-19 22 Bacteria identified Cx Nom (Wound) ORGANISM ID: 1 Coagulase negative staphylococcus Growth in Enrichment Broth Only No susceptibility testing done. Call lab within 72 hours to initiate work-up if clinically indicated. GRAM STAIN: Account credited. Not performed on this specimen type. [facility] Comment on above: Performed By: #### 6 462-6 ####[facility] LABORATORYCLIA [id number] [address] Bacteria identified Cx Nom (Wound) ORGANISM ID: 1 Rare Coagulase negative staphylococcus No susceptibility testing done. Call lab within 72 hours to initiate work-up if clinically indicated. GRAM STAIN: Account credited. Not performed on this specimen type. Normal [facility] Comment on above: Performed By: #### 6 462-6 ####[facility] LABORATORYCLIA [id number] [address] Bacteria identified Cx Nom (Wound) CULTURE, INTRAOPERATIVE HARDWARE: No growth 14 days GRAM STAIN: Account credited. Not performed on this specimen type. Normal [facility] Comment on above: Performed By: #### 6 462-6 ####[facility] LABORATORYCLIA [id number] [address] [place] Basic metabolic 2000 panelon 07-08-2021 Anion gap [Moles/Vol] 9 mmol/L Normal 9-18 [facility] Comment on above: Order Comment: Speci men Type: BLOOD SPECIMENOrdering Facility: [facility] Address: [address] [place] [address] Performed By: #### 2 4321-2 ####[facility] LABORATORYCLIA [id number] [address] [place] Calcium [Mass/Vol] 8.5 mg/dL Normal 8.5-10.2 [facility] Comment on above: Order Comment: Speci men Type: BLOOD SPECIMENOrdering Facility: [facility] Address: [address] [address] Performed By: #### 2 4321-2 ####[facility] LABORATORYCLIA [id number] [address] [place] Chloride [Moles/Vol] 98 mmol/L Normal 97-105 [facility] Comment on above: Order Comment: Speci men Type: BLOOD SPECIMENOrdering Facility: [facility] Address: [address] [place] [address] Performed By: #### 2 4321-2 ####[facility] LABORATORYCLIA [id number] [place] [address] [place] CO2 [Moles/Vol] 31 mmol/L High 22-30 [facility] Comment on above: Order Comment: Speci men Type: BLOOD SPECIMENOrdering Facility: [facility] Address: [address] [place] [address] Performed By: #### 2 4321-2 ####[facility] [id number] [address] [place] Creatinine [Mass/Vol] 0.64 mg/dL Low 0.73-1.22 [facility] Comment on above: Order Comment: Speci men Type: BLOOD SPECIMENOrdering Facility: [facility] Address: [address] [place] [address] Performed By: #### 2 4321-2 ####[facility] LABORATORYCLIA [id number] [address] ESTIMATED GLOMERULAR FILTRATION RATE 102 mL/min/1.73m??? Normal >=60 [facility] Comment on above: Order Comment: Speci men Type: BLOOD SPECIMENOrdering Facility: [facility] Address: [address] [place] [address] Result Comment: Luzmaria mated Glomerular Filtration Rate [...] actual GFR. Performed By: #### 2 4321-2 ####[facility] LABORATORYCLIA [id number] [place] [address] [place] Glucose [Mass/Vol] 114 mg/dL High 74-99 [facility] Comment on above: Order Comment: Speci men Type: BLOOD SPECIMENOrdering Facility: [facility] Address: [address] [place] [address] Result Comment: The [place] [employer] (ADA) provides guidance for cutoff [...] Standards of Medical Care in Diabetes 2016, [place] [employer]. Diabetes Care. 2016.39(Suppl 1). Performed By: #### 2 4321-2 ####[facility] LABORATORYCLIA [id number] [place] [address] [place] Potassium [Moles/Vol] 3.4 mmol/L Low 3.7-5.1 [facility] Comment on above: Order Comment: Shira men Type: BLOOD SPECIMENOrdering Facility: [facility] Address: [address] [place] [address] Performed By: #### 2 4321-2 ####[facility] LABORATORYCLIA [id number] [place] [address] [place] Sodium [Moles/Vol] 138 mmol/L Normal 136-144 [facility] Comment on above: Order Comment: Speci men Type: BLOOD SPECIMENOrdering Facility: [facility] Address: [address] [place] [address] Performed By: #### 2 4321-2 ####[facility] LABORATORYCLIA [id number] [place] [address] [place] Urea nitrogen [Mass/Vol] 14 mg/dL Normal 9-24 [facility] Comment on above: Order Comment: Speci men Type: BLOOD SPECIMENOrdering Facility: [facility] Address: [address] [address] Performed By: #### 2 4321-2 ####[facility] LABORATORYCLIA [id number] [address] CBC W Auto Differential pane l (Bld)on 07-08-2021 Basophils (Bld) [#/Vol] 0.05 10*3/uL Normal <0.11 [facility] Comment on above: Order Comment: Speci men Type: BLOOD SPECIMENOrdering Facility: [facility] Address: [address] [place] [address] Performed By: #### 5 7021-8 ####[facility] LABORATORYCLIA [id number] [address] Basophils/100 WBC (Bld) 0.4 % Normal [facility] Comment on above: Order Comment: Speci men Type: BLOOD SPECIMENOrdering Facility: [facility] Address: [address] [place] [address] Performed By: #### 5 7021-8 ####[facility] LABORATORYCLIA [id number] [address] Differential cell count method Nom (Bld) Auto Normal [facility] Comment on above: Order Comment: Speci men Type: BLOOD SPECIMENOrdering Facility: [facility] Address: [address] [address] Performed By: #### 5 7021-8 ####[facility] LABORATORYCLIA [id number] [address] STATES [facility] Eosinophils (Bld) [#/Vol] 0.68 10*3/uL High <0.46 [facility] Comment on above: Order Comment: Speci men Type: BLOOD SPECIMENOrdering Facility: [facility] Address: [address] [address] Performed By: #### 5 7021-8 ####[facility] LABORATORYCLIA [id number] [address] Eosinophils/100 WBC (Bld) 5.4 % Normal [facility] Comment on above: Order Comment: Speci men Type: BLOOD SPECIMENOrdering Facility: [facility] Address: [address] [place] [address] Performed By: #### 5 7021-8 ####[facility] LABORATORYCLIA [id number] [address] Erythrocyte distribution width (RBC) [Ratio] 16.3 % High 11.5-15.0 [facility] Comment on above: Order Comment: Speci men Type: BLOOD SPECIMENOrdering Facility: [facility] Address: [address] [place] [address] Performed By: #### 5 7021-8 ####[facility] LABORATORYCLIA [id number] [address] Hematocrit (Bld) [Volume fraction] 35.7 % Low 39.0-51.0 [facility] Comment on above: Order Comment: Speci men Type: BLOOD SPECIMENOrdering Facility: [facility] Address: [address] [place] [address] Performed By: #### 5 7021-8 ####[facility] LABORATORYCLIA [id number] [address] Hemoglobin (Bld) [Mass/Vol] 10.8 g/dL Low 13.0-17.0 [facility] Comment on above: Order Comment: Speci men Type: BLOOD SPECIMENOrdering Facility: [facility] Address: [address] [place] [address] Performed By: #### 5 7021-8 ####[facility]ORATORYCLIA [id number] [address] IMMATURE GRAN % 0.4 % Normal [facility] Comment on above: Order Comment: Speci men Type: BLOOD SPECIMENOrdering Facility: [facility] Address: [address] [place] [address] Performed By: #### 5 7021-8 ####[facility]ORATORYCLIA [id number] [address] IMMATURE GRAN ABS 0.05 k/uL Normal <0.10 [facility] Comment on above: Order Comment: Speci men Type: BLOOD SPECIMENOrdering Facility: [facility] Address: [address] [place] [address] Performed By: #### 5 7021-8 ####[facility] LABORATORYCLIA [id number] [address] Lymphocytes (Bld) [#/Vol] 1.85 10*3/uL Normal 1.00-4.00 [facility] Comment on above: Order Comment: Speci men Type: BLOOD SPECIMENOrdering Facility: [facility] Address: [address] [place] [address] Performed By: #### 5 7021-8 ####[facility] LABORATORYCLIA [id number] [address] Lymphocytes/100 WBC (Bld) 14.7 % Normal [facility] Comment on above: Order Comment: Speci men Type: BLOOD SPECIMENOrdering Facility: [facility] Address: [address] [place] [address] Performed By: #### 5 7021-8 ####[facility] LABORATORYCLIA [id number] [address] MCH (RBC) [Entitic mass] 27.1 pg Normal 26.0-34.0 [facility] Comment on above: Order Comment: Speci men Type: BLOOD SPECIMENOrdering Facility: [facility] Address: [address] [place] [address] Performed By: #### 5 7021-8 ####[facility] LABORATORYCLIA [id number] [address] MCHC (RBC) [Mass/Vol] 30.3 g/dL Low 30.5-36.0 [facility] Comment on above: Order Comment: Speci men Type: BLOOD SPECIMENOrdering Facility: [facility] Address: [address] [address] Performed By: #### 5 7021-8 ####[facility]ORATORYCLIA [id number] [address] [place] MCV (RBC) [Entitic vol] 89.7 fL Normal 80.0-100.0 [facility] Comment on above: Order Comment: Speci men Type: BLOOD SPECIMENOrdering Facility: [facility] Address: [address] [place] [address] Performed By: #### 5 7021-8 ####[facility]ORATORYCLIA [id number] [address] [place] Monocytes (Bld) [#/Vol] 0.87 10*3/uL High <0.87 [facility] Comment on above: Order Comment: Speci men Type: BLOOD SPECIMENOrdering Facility: [facility] Address: [address] [place] [address] Performed By: #### 5 7021-8 ####[facility] LABORATORYCLIA [id number] [address] STATES [facility] Monocytes/100 WBC (Bld) 6.9 % Normal [facility] Comment on above: Order Comment: Speci men Type: BLOOD SPECIMENOrdering Facility: [facility] Address: [address] [place] [address] Performed By: #### 5 7021-8 ####[facility] LABORATORYCLIA [id number] [address] [place] Neutrophils (Bld) [#/Vol] 9.05 10*3/uL High 1.45-7.50 [facility] Comment on above: Order Comment: Speci men Type: BLOOD SPECIMENOrdering Facility: [facility] Address: [address] [place] [address] Performed By: #### 5 7021-8 ####[facility] LABORATORYCLIA [id number] [address] [place] Neutrophils/100 WBC (Bld) 72.2 % Normal [facility] Comment on above: Order Comment: Speci men Type: BLOOD SPECIMENOrdering Facility: [facility] Address: [address] [place] [address] Performed By: #### 5 7021-8 ####[facility] LABORATORYCLIA [id number] [address] [place] Nucleated RBC (Bld) [#/Vol] 10*3/uL Normal <0.01 [facility] Comment on above: Order Comment: Speci men Type: BLOOD SPECIMENOrdering Facility: [facility] Address: [address] [place] [address] Performed By: #### 5 7021-8 ####[facility] LABORATORYCLIA [id number] [address] [place] Nucleated RBC/100 WBC (Bld) [Ratio] 0.0 /100 WBC Normal [facility] Comment on above: Order Comment: Speci men Type: BLOOD SPECIMENOrdering Facility: [facility] Address: [address] [place] [address] Performed By: #### 5 7021-8 ####[facility] LABORATORYCLIA [id number] [address] [place] Platelet mean volume (Bld) [Entitic vol] 9.9 fL Normal 9.0-12.7 [facility] Comment on above: Order Comment: Speci men Type: BLOOD SPECIMENOrdering Facility: [facility] Address: [address] [place], [place] [address] Performed By: #### 5 7021-8 ####[facility] LABORATORYCLIA [id number] [place] [address] [place] Platelets (Bld) [#/Vol] 335 10*3/uL Normal 150-400 [facility] Comment on above: Order Comment: Speci men Type: BLOOD SPECIMENOrdering Facility: [facility] Address: [address] [place], [place] [address] Performed By: #### 5 7021-8 ####[facility] LABORATORYCLIA [id number] [place] [address] [place] RBC (Bld) [#/Vol] 3.98 10*6/uL Low 4.20-6.00 [facility] Comment on above: Order Comment: Speci men Type: BLOOD SPECIMENOrdering Facility: [facility] Address: [address] [place] [address] Performed By: #### 5 7021-8 ####[facility] LABORATORYCLIA [id number] [address] [place] WBC (Bld) [#/Vol] 12.55 10*3/uL High 3.70-11.00 [facility] Comment on above: Order Comment: Speci men Type: BLOOD SPECIMENOrdering Facility: [facility] Address: [address] [place] [address] Performed By: #### 5 7021-8 ####[facility] LABORATORYCLIA [id number] [address] CK CREATINE KINASEon 022 CK [Catalytic activity/Vol] 72 U/L Normal 51-298 [facility] Comment on above: Order Comment: Speci men Type: BLOOD SPECIMENOrdering Facility: [facility] Address: [address] [place] [address] Performed By: #### C K, 71666-5 ####[facility] LABORATORYCLIA [id number] [address] [place] CONSULT PROGon 07-08-2021 CONSULT PROG Normal [facility] CONSULT PROG Normal [facility] CSF MANUAL DIFFon 07-08-2021 DIF TTL, CSF 3 cells counted Normal [facility] Comment on above: Order Comment: Speci men Type: CEREBROSPINAL FLUIDOrdering Facility: [facility] Address: [address] [place] [address] Performed By: #### 3 4563-7, [id number] ####[facility] LABORATORYCLIA [id number] [address] [place] LYMPH%, CSF 33 % Low 50-90 [facility] Comment on above: Order Comment: Speci men Type: CEREBROSPINAL FLUIDOrdering Facility: [facility] Address: [address] [place] [address] Performed By: #### 3 4563-7, ####[facility]ATORYCLIA [id number] [address] [place] MONO%, CSF 67 % High 10-50 [facility] Comment on above: Order Comment: Speci men Type: CEREBROSPINAL FLUIDOrdering Facility: [facility] Address: [address] [place] [address] Performed By: #### 3 4563-7, [id number] ####[facility] LABORATORYCLIA [id number] [address] OF [facility] CT ABD/PEL W IVCONon 022 CT ABD/PEL W IVCON Normal [facility] CT BRAIN WO IVCONon 07-09-[address] BRAIN WO IVCON Normal [facility] CT BRAIN WO IVCON Normal [facility] CT CHEST W IVCON PEon 2021 CT CHEST W IVCON PE Normal [facility] Cell count panel (CSF)on Clarity (CSF) Clear Normal Clear [facility] Comment on above: Order Comment: Speci men Type: CEREBROSPINAL FLUIDOrdering Facility: [facility] Address: [address] [place] [address] Performed By: #### 3 4563-7, [id number] ####[facility]ORATORYCLIA [id number] [address] Clarity (Unsp spec) Clear Normal Clear [facility] Comment on above: Order Comment: Speci men Type: CEREBROSPINAL FLUIDOrdering Facility: [facility] Address: [address] [place] [address] Performed By: #### 3 4563-7, [id number] ####[facility]ORATORYCLIA [id number] [address] Color (CSF) Colorless Normal Colorless [facility] Comment on above: Order Comment: Speci men Type: CEREBROSPINAL FLUIDOrdering Facility: [facility] Address: [address] [address] Performed By: #### 3 4563-7, [id number] ####[facility]ORATORYCLIA [id number] [address] [place] Color (Spun CSF) Colorless Normal Colorless [facility] Comment on above: Order Comment: Speci men Type: CEREBROSPINAL FLUIDOrdering Facility: [facility] Address: [address] [address] Performed By: #### 3 4563-7, [id number] ####[facility] LABORATORYCLIA [id number] [address] [place] CSF [employer] Normal [facility] Comment on above: Order Comment: Speci men Type: CEREBROSPINAL FLUIDOrdering Facility: [facility] Address: [address] [place] [address] Performed By: #### 3 4563-7, [id number] ####[facility] LABORATORYCLIA [id number] [address] [place] RBC Manual cnt (CSF) [#/Vol] 94 cells/uL High 0-5 [facility] Comment on above: Order Comment: Speci men Type: CEREBROSPINAL FLUIDOrdering Facility: [facility] Address: [address] [address] Performed By: #### 3 4563-7, [id number] ####[facility]ORATORYCLIA [id number] [address] [place] WBC Manual cnt (CSF) [#/Vol] 1 cells/uL Normal 0-5 [facility] Comment on above: Order Comment: Speci men Type: CEREBROSPINAL FLUIDOrdering Facility: [facility] Address: [address] [address] Performed By: #### 3 4563-7, [id number] ####[facility]ORATORYCLIA [id number] [address] [facility] Comprehensive metabolic 2000 panelon 07-08-2021 Albumin [Mass/Vol] 3.6 g/dL Low 3.9-4.9 [facility] Comment on above: Order Comment: Speci men Type: BLOOD SPECIMENOrdering Facility: [facility] Address: [address] [place] [address] Performed By: #### Eileen Valdivia, 94845-7 ####[facility] LABORATORYCLIA [id number] [address] [place] ALP [Catalytic activity/Vol] 125 U/L High 38-113 [facility] Comment on above: Order Comment: Speci men Type: BLOOD SPECIMENOrdering Facility: [facility] Address: [address] [place] [address] Performed By: #### Eileen Valdivia, 26806-9 ####[facility] LABORATORYCLIA [id number] [address] ALT With P-5'-P [Catalytic activity/Vol] 24 U/L Normal 10-54 [facility] Comment on above: Order Comment: Speci men Type: BLOOD SPECIMENOrdering Facility: [facility] Address: [address] [place] [address] Performed By: #### Eileen Valdivia, 22258-4 ####[facility]ORATORYCLIA [id number] [address] Anion gap [Moles/Vol] 16 mmol/L Normal 9-18 [facility] Comment on above: Order Comment: Speci men Type: BLOOD SPECIMENOrdering Facility: [facility] Address: [address] [place] [address] Performed By: #### Eileen Valdivia, 96842-4 ####[facility] LABORATORYCLIA [id number] [address] [place] AST With P-5'-P [Catalytic activity/Vol] 21 U/L Normal 14-40 [facility] Comment on above: Order Comment: Speci men Type: BLOOD SPECIMENOrdering Facility: [facility] Address: [address] [place] [address] Performed By: #### Eileen Valdivia, 30652-2 ####[facility]ORATORYCLIA [id number] [place] [address] [place] Bilirubin [Mass/Vol] 0.3 mg/dL Normal 0.2-1.3 [facility] Comment on above: Order Comment: Speci men Type: BLOOD SPECIMENOrdering Facility: [facility] Address: [address] [place] [address] Performed By: #### Eileen Valdivia, 13491-6 ####[facility]ORATORYCLIA [id number] [place] [address] [place] Calcium [Mass/Vol] 8.9 mg/dL Normal 8.5-10.2 [facility] Comment on above: Order Comment: Speci men Type: BLOOD SPECIMENOrdering Facility: [facility] Address: [address] [place] [address] Performed By: #### Eileen Valdivia, 26117-5 ####[facility]ORATORYCLIA [id number] [place] [address] [place] Chloride [Moles/Vol] 96 mmol/L Low 97-105 [facility] Comment on above: Order Comment: Speci men Type: BLOOD SPECIMENOrdering Facility: [facility] Address: [address] [place] [address] Performed By: #### Eileen Valdivia, 34878-9 ####[facility]ORATORYCLIA [id number] [place] [address] [place] CO2 [Moles/Vol] 27 mmol/L Normal 22-30 [facility] Comment on above: Order Comment: Speci men Type: BLOOD SPECIMENOrdering Facility: [facility] Address: [address] [place] [address] Performed By: #### Eileen Valdivia, 32497-7 ####[facility]ORATORYCLIA [id number] [place] [address] [place] Creatinine [Mass/Vol] 0.68 mg/dL Low 0.73-1.22 [facility] Comment on above: Order Comment: Johncara feldman Type: BLOOD SPECIMENOrdering Facility: [facility] Address: [address] [address] Performed By: #### C K, 43891-8 ####[facility] LABORATORYCLIA [id number] [place] [address] [facility] ESTIMATED GLOMERULAR FILTRATION RATE 101 mL/min/1.73m??? Normal >=60 [facility] Comment on above: Order Comment: Johncara feldman Type: BLOOD SPECIMENOrdering Facility: [facility] Address: [address] [address] Result Comment: Luzmaria mated Glomerular Filtration Rate [...] actual GFR. Performed By: #### C K, 67658-4 ####[facility] LABORATORYCLIA [id number] [address] [place] Glucose [Mass/Vol] 130 mg/dL High 74-99 [facility] Comment on above: Order Comment: Shira feldman Type: BLOOD SPECIMENOrdering Facility: [facility] Address: [address] [address] Result Comment: The [place] [employer] (ADA) provides guidance for cutoff [...] Standards of Medical Care in Diabetes 2016, [place] [employer]. Diabetes Care. 2016.39(Suppl 1). Performed By: #### Eileen Valdivia, 82589-7 ####[facility]ATORYCLIA [id number] [address] [place] Potassium [Moles/Vol] 3.9 mmol/L Normal 3.7-5.1 [facility] Comment on above: Order Comment: Speci men Type: BLOOD SPECIMENOrdering Facility: [facility] Address: [address] [place] [address] Performed By: #### Eileen Valdivia, 66346-5 ####[facility] LABORATORYCLIA [id number] [address] [place] Protein [Mass/Vol] 7.0 g/dL Normal 6.3-8.0 [facility] Comment on above: Order Comment: Speci men Type: BLOOD SPECIMENOrdering Facility: [facility] Address: [address] [place] [address] Performed By: #### Eileen Valdivia, 65109-0 ####[facility]ORATORYCLIA [id number] [address] [place] Sodium [Moles/Vol] 139 mmol/L Normal 136-144 [facility] Comment on above: Order Comment: Speci men Type: BLOOD SPECIMENOrdering Facility: [facility] Address: [address] [place] [address] Performed By: #### Eileen Valdivia, 98299-2 ####[facility]ORATORYCLIA [id number] [address] STATES OF [facility] Urea nitrogen [Mass/Vol] 16 mg/dL Normal 9-24 [facility] Comment on above: Order Comment: Speci men Type: BLOOD SPECIMENOrdering Facility: [facility] Address: [address] [place] [address] Performed By: #### Eileen Valdivia, 38582-1 ####[facility]ORATORYCLIA [id number] [address] STATES OF [facility] ED NOTEon 07-08-2021 ED NOTE HNO ID: [id number] Author: Lenora James RN Service: Emergency Medicine Author Type: Registered Nurse Type: ED Notes Filed: 07/08/2021 5:03 PM Note Text: Pt to OR with surgical team [facility] ED NOTE HNO ID: [id number] Author: Lenora James RN Service: Emergency Medicine Author Type: Registered Nurse Type: ED Notes Filed: 07/08/2021 4:50 PM Note Text: OR team to get pt [facility] ED NOTE HNO ID: [id number] Author: Lenora James RN Service: Emergency Medicine Author Type: Registered Nurse Type: ED Notes Filed: 07/08/2021 4:50 PM Note Text: [facility] ED NOTE HNO ID: [id number] Author: Lenora James RN Service: Emergency Medicine Author Type: Registered Nurse Type: ED Notes Filed: 07/08/2021 4:50 PM Note Text: Spoke with presurg; pt to go to OR now [facility] ED NOTE HNO ID: [id number] Author: Lenora James RN Service: Emergency Medicine Author Type: Registered Nurse Type: ED Notes Filed: 07/08/2021 4:12 PM Note Text: Neurosurgery at beside [facility] ED NOTE HNO ID: [id number] Author: Lenora James RN Service: Emergency Medicine Author Type: Registered Nurse Type: ED Notes Filed: 07/08/2021 2:35 PM Note Text: respiratory aware of pt breathing treatments [facility] ED NOTE HNO ID: [id number] Author: Lisa Woo RN Service: ? Author Type: Registered Nurse Type: ED Notes Filed: 07/08/2021 2:20 PM Note Text: Xray notified pt is ready. [facility] ED NOTE HNO ID: [id number] Author: Lenora James RN Service: Emergency Medicine Author Type: Registered Nurse Type: ED Notes Filed: 07/08/2021 12:14 PM Note Text: CT notified regarding imaging orders placed [facility] ED NOTE Normal [facility] ED PROV NOTEon 03-04-2022 ED PROV NOTE [facility] Glucose CSF-mCncon 2 Glucose (CSF) [Mass/Vol] 88 mg/dL High 40-70 [facility] Comment on above: Order Comment: Shira feldman Type: CEREBROSPINAL FLUIDOrdering Facility: [facility] Address: [address] [place] [address] Result Comment: Lumb ar CSF glucose values of healthy patients are approximately 60% of the plasma values and must always be compared with a concurrently measured plasma value for adequate clinical interpretation.References: 1. Glucose HK (GLUC3) [package insert V 12.0 Nepalese]. [employer], [place], [place]. September 2015. 2. Michelle Moore, Loki HGarfield (2015). Chapter 7: Glucose and Lactate. Marianela Rothman.(eds.), Cerebrospinal Fluid in Clinical Neurology. [place]: [employer]. Performed By: #### 2 880-3, 2342-4 ####[facility] LABORATORYCLIA [id number] [address] OF [facility] HIGH SENSITIVITY TROPONIN To n 07-08-2021 HIGH SENSITIVITY TAMIKO 27 ng/L High <12 [facility] Comment on above: Order Comment: Shira feldman Type: BLOOD SPECIMENOrdering Facility: [facility] Address: [address] [place] [address] Result Comment: When assessing risk for acute [...] day MACE. Performed By: #### H STNT ####[facility] LABORATORYCLIA [id number] [address] HIGH SENSITIVITY TAMIKO 36 ng/L High <12 [facility] Comment on above: Order Comment: Shira feldman Type: BLOOD SPECIMENOrdering Facility: [facility] Address: [address] [place] [address] Result Comment: When assessing risk for acute [...] day MACE. Performed By: #### H STNT ####[facility] LABORATORYCLIA [id number] [place] [address] [place] HISTORY PHYSICALon 2 HISTORY PHYSICAL Normal [facility] NURSING PROGon 07-08-2021 NURSING PROG Normal [facility] OPERATIVE NOon 07-08-2021 OPERATIVE NO Normal [facility] Prot CSF-mCncon 07-08-2021 Protein (CSF) [Mass/Vol] 33 mg/dL Normal 15-45 [facility] Comment on above: Order Comment: Speci men Type: CEREBROSPINAL FLUIDOrdering Facility: [facility] Address: [address] [place] [address] Performed By: #### 2 880-3, 2342-4 ####[facility] LABORATORYCLIA [id number] [place] [address] [place] SARS-CoV-2 RNA Resp Ql MEGAN+p robeon 07-08-2021 SARS-CoV-2 (COVID-19) RNA MEGAN+probe Ql (Resp) COVID 19 RESULT: SARS-CoV-2 (Agent of COVID-19) Not Detected by RT-PCR or equivalent method. This test has been authorized by FDA under an Emergency Use Authorization (EUA). Normal [facility] Comment on above: Performed By: #### 9 4500-6 ####[facility] LABORATORYCLIA [id number] [place] [address] [place] STAPH AUREUS PCRon 2 S. aureus and MRSA panel MEGAN+probe (Nose) Normal Negative [facility] Comment on above: Order Comment: Speci men Type: SWAB OF INTERNAL NOSEOrdering Facility: [facility] Address: [address] [place] [address] Result Comment: Nega tive for Staphylococcus aureus by PCR.Negative for MRSA by PCR Performed By: #### S APCR ####[facility] LABORATORYCLIA [id number] [address] Urinalysis complete panel (U )on 07-08-2021 Bacteria LM.HPF (Urine sed) [#/Area] Few Abnormal None Seen [facility] Comment on above: Order Comment: Speci men Type: URINE SPECIMENOrdering Facility: [facility] Address: [address] [place] [address] Performed By: #### 2 4356-8 ####[facility] LABORATORYCLIA [id number] [address] Bilirubin Ql (U) Negative Normal Negative [facility] Comment on above: Order Comment: Speci men Type: URINE SPECIMENOrdering Facility: [facility] Address: [address] [place] [address] Performed By: #### 2 4356-8 ####[facility] LABORATORYCLIA [id number] [address] Clarity (Unsp spec) Turbid Abnormal Clear [facility] Comment on above: Order Comment: Speci men Type: URINE SPECIMENOrdering Facility: [facility] Address: [address] [place] [address] Performed By: #### 2 4356-8 ####[facility] LABORATORYCLIA [id number] [address] Color (U) Light Yellow Normal yellow [facility] Comment on above: Order Comment: Speci men Type: URINE SPECIMENOrdering Facility: [facility] Address: [address] [place] [address] Performed By: #### 2 4356-8 ####[facility] LABORATORYCLIA [id number] [address] Glucose Test strip (U) [Mass/Vol] Negative Normal Negative [facility] Comment on above: Order Comment: Speci men Type: URINE SPECIMENOrdering Facility: [facility] Address: [address] [address] Performed By: #### 2 4356-8 ####[facility] LABORATORYCLIA [id number] [address] Hemoglobin Ql (U) Negative Normal Negative [facility] Comment on above: Order Comment: Speci men Type: URINE SPECIMENOrdering Facility: [facility] Address: [address] [place] [address] Performed By: #### 2 4356-8 ####[facility] LABORATORYCLIA [id number] [address] [place] Hyaline casts (Urine sed) [#/Area] 1-3 /LPF Abnormal 0 /LPF [facility] Comment on above: Order Comment: Speci men Type: URINE SPECIMENOrdering Facility: [facility] Address: [address] [place] [address] Performed By: #### 2 4356-8 ####[facility] LABORATORYCLIA [id number] [address] STATES [facility] Ketones Ql (U) Negative Normal Negative [facility] Comment on above: Order Comment: Speci men Type: URINE SPECIMENOrdering Facility: [facility] Address: [address] [place] [address] Performed By: #### 2 4356-8 ####[facility]ORATORYCLIA [id number] [address] Leukocyte esterase Test strip Ql (U) Negative Normal Negative [facility] Comment on above: Order Comment: Speci men Type: URINE SPECIMENOrdering Facility: [facility] Address: [address] [address] Performed By: #### 2 4356-8 ####[facility] LABORATORYCLIA [id number] [address] Nitrite Ql (U) Negative Normal Negative [facility] Comment on above: Order Comment: Speci men Type: URINE SPECIMENOrdering Facility: [facility] Address: [address] [place] [address] Performed By: #### 2 4356-8 ####[facility] LABORATORYCLIA [id number] [address] STATES [facility] pH (U) 5.0 [pH] Normal 5.0-8.0 [facility] Comment on above: Order Comment: Speci men Type: URINE SPECIMENOrdering Facility: [facility] Address: [address] [place] [address] Performed By: #### 2 4356-8 ####[facility] LABORATORYCLIA [id number] [address] [place] Protein (U) [Mass/Vol] Negative Normal Negative [facility] Comment on above: Order Comment: Speci men Type: URINE SPECIMENOrdering Facility: [facility] Address: [address] [place] [address] Performed By: #### 2 4356-8 ####[facility]NACLIA [id number] [address] STATES [facility] RBC LM.HPF (Urine sed) [#/Area] 11-25 /HPF Abnormal 0-3 /HPF [facility] Comment on above: Order Comment: Speci men Type: URINE SPECIMENOrdering Facility: [facility] Address: [address] [place] [address] Performed By: #### 2 4356-8 ####[facility] LABORATORYCLIA [id number] [address] [place] Specific gravity (U) [Rel density] 1.018 Normal 1.005-1.030 [facility] Comment on above: Order Comment: Speci men Type: URINE SPECIMENOrdering Facility: [facility] Address: [address] [place] [address] Performed By: #### 2 4356-8 ####[facility] LABORATORYCLIA [id number] [address] Urobilinogen Ql (U) Normal Normal Negative [facility] Comment on above: Order Comment: Speci men Type: URINE SPECIMENOrdering Facility: [facility] Address: [address] [place] [address] Performed By: #### 2 4356-8 ####[facility] LABORATORYCLIA [id number] [address] WBC LM.HPF (Urine sed) [#/Area] /[HPF] Abnormal 0-5 /HPF [facility] Comment on above: Order Comment: Speci men Type: URINE SPECIMENOrdering Facility: [facility] Address: [address] [place] [address] Performed By: #### 2 4356-8 ####[facility]ORATORYCLIA [id number] [address] Vancomycin random [Mass/Vol] on 07-08-2021 Vancomycin [Mass/Vol] 31.0 ug/mL High 10.0-20.0 [facility] Comment on above: Order Comment: Speci men Type: BLOOD SPECIMENOrdering Facility: [facility] Address: [address] [place] [address] Result Comment: Refe rence ranges and high/low indicator flags are provided as general guidelines only. The treating physician must determine appropriate target levels/dosing based on the specific clinical situation. Performed By: #### 4 091-5 ####[facility]ORATORYCLIA [id number] [address] XR ABD 2V SUPINE W UPR/DECUB /CTLon 07-08-2021 XR ABD 2V SUPINE W UPR/DECUB/CTL Normal [facility] XR CHEST 1V FRONTALon 2021 XR CHEST 1V FRONTAL Normal [facility] XR CHEST 1V FRONTAL Normal [facility] XR NECK SOFT TISSUE 2V AP/LA Ton 07-08-2021 XR NECK SOFT TISSUE 2V AP/LAT Normal [facility] XR SKULL 2V AP/LATon 022 XR SKULL 2V AP/LAT Normal [facility] HISTORY PHYSICALon HISTORY PHYSICAL HNO ID: [id number] Author: Amy Beltran MD Service: ? Author Type: Physician Type: HANDP Filed: 06/30/2021 6:42 PM Note Text: Connected Care Unit History and Physical Facility: [facility] Level of Care: Skilled Admission Date: June [...] regarding the above plan. Total time spent [id number] and/or counseling and coordinating care on the skilled care unit for patient was approximately 45 minutes SUBJECTIVE (HISTORY) Chief Complaint: Confusion, infection, blood clot. Andrew Sifuentes is being seen today for care home facility (SNF) admission AND management of weakness, tube feed, infected retroperitoneal infection and seizure. HPI: This is a 71 year old male who presents from [facility] with primary admitting diagnosis of Seizure, enteral [...] CT brain concerning for hydrocephalus. Tip of IMMUNOLOGIST shunt was found to be in the [...] (more content not included)... Normal [facility] Basic metabolic 2000 panelon 06-28-2021 Anion gap [Moles/Vol] 7 mmol/L Low 9-18 [facility] Comment on above: Order Comment: Speci men Type: BLOOD SPECIMENOrdering Facility: [facility] Address: [address] [place] [address] Performed By: #### 2 4321-2, ####[facility] LABORATORYCLIA [id number] [place] [address] [place] Calcium [Mass/Vol] 8.8 mg/dL Normal 8.5-10.2 [facility] Comment on above: Order Comment: Speci men Type: BLOOD SPECIMENOrdering Facility: [facility] Address: [address] [place] [address] Performed By: #### 2 432-2, ####[facility]ORATORYCLIA [id number] [place] [address] [place] Chloride [Moles/Vol] 103 mmol/L Normal 97-105 [facility] Comment on above: Order Comment: Speci men Type: BLOOD SPECIMENOrdering Facility: [facility] Address: [address] [address] Performed By: #### 2 4321-2, ####[facility] LABORATORYCLIA [id number] [place] [address] [place] CO2 [Moles/Vol] 28 mmol/L Normal 22-30 [facility] Comment on above: Order Comment: Speci men Type: BLOOD SPECIMENOrdering Facility: [facility] Address: [address] [address] Performed By: #### 2 4321-, ####[facility] LABORATORYCLIA [id number] [place] [address] [place] Creatinine [Mass/Vol] 0.57 mg/dL Low 0.73-1.22 [facility] Comment on above: Order Comment: Shira francia Type: BLOOD SPECIMENOrdering Facility: [facility] Address: [address] [place] [address] Performed By: #### 2 432-, ####[facility] LABORATORYCLIA [id number] [place] [address] [place] GFR/1.73 sq M.predicted MDRD (S/P/Bld) [Vol rate/Area] mL/min/{1.73_m2} Normal [facility] Comment on above: Order Comment: [facility] Type: BLOOD SPECIMENOrdering Facility: [facility] Address: [address] [place] [address] Result Comment: >60e GFR (Estimated GFR) Units [...] reflect actual GFR. Performed By: #### 2 432-2, ####[facility] LABORATORYCLIA [id number] [place] [address] [place] Glucose [Mass/Vol] 120 mg/dL High 74-99 [facility] Comment on above: Order Comment: Shira feldman Type: BLOOD SPECIMENOrdering Facility: [facility] Address: [address] [place] [address] Result Comment: The [place] [employer] (ADA) provides guidance for cutoff [...] Standards of Medical Care in Diabetes 2016, [place] [employer]. Diabetes Care. 2016.39(Suppl 1). Performed By: #### 2 4320-06, ####[facility] LABORATORYCLIA [id number] [place] [address] [place] Potassium [Moles/Vol] 3.8 mmol/L Normal 3.7-5.1 [facility] Comment on above: Order Comment: Shira feldman Type: BLOOD SPECIMENOrdering Facility: [facility] Address: [address] [place] [address] Performed By: #### 2 ####[facility]ORATORYCLIA [id number] [place] [address] [place] Sodium [Moles/Vol] 138 mmol/L Normal 136-144 [facility] Comment on above: Order Comment: Shira feldmna Type: BLOOD SPECIMENOrdering Facility: [facility] Address: [address] [place] [address] Performed By: #### 2 4320-06, ####[facility] LABORATORYCLIA [id number] [place] [id number] [place] Urea nitrogen [Mass/Vol] 24 mg/dL Normal 9-24 [facility] Comment on above: Order Comment: Shira feldman Type: BLOOD SPECIMENOrdering Facility: [facility] Address: [address] [place] [address] Performed By: #### 2 ####[facility] LABORATORYCLIA [id number] [place] [id number] [facility] [place] CASE MANAGEMon 06-28-2021 CASE MANAGEM Normal [facility] CBC panel Auto (Bld)on 06-28 Erythrocyte distribution width (RBC) [Ratio] 15.6 % High 11.5-15.0 [facility] Comment on above: Order Comment: Speci men Type: BLOOD SPECIMENOrdering Facility: [facility] Address: [address] [place] [address] Performed By: #### 5 8410-2 ####[facility] LABORATORYCLIA [id number] [address] Hematocrit (Bld) [Volume fraction] 30.5 % Low 39.0-51.0 [facility] Comment on above: Order Comment: Speci men Type: BLOOD SPECIMENOrdering Facility: [facility] Address: [address] [place] [address] Performed By: #### 5 8410-2 ####[facility] LABORATORYCLIA [id number] [address] OF [facility] Hemoglobin (Bld) [Mass/Vol] 9.4 g/dL Low 13.0-17.0 [facility] Comment on above: Order Comment: Speci men Type: BLOOD SPECIMENOrdering Facility: [facility] Address: [address] [place] [address] Performed By: #### 5 8410-2 ####[facility] LABORATORYCLIA [id number] [address] STATES [facility] MCH (RBC) [Entitic mass] 27.8 pg Normal 26.0-34.0 [facility] Comment on above: Order Comment: Speci men Type: BLOOD SPECIMENOrdering Facility: [facility] Address: [address] [place] [address] Performed By: #### 5 8410-2 ####[facility] LABORATORYCLIA [id number] [address] [place] MCHC (RBC) [Mass/Vol] 30.8 g/dL Normal 30.5-36.0 [facility] Comment on above: Order Comment: Speci men Type: BLOOD SPECIMENOrdering Facility: [facility] Address: [facility] [address] Performed By: #### 5 8410-2 ####[facility] LABORATORYCLIA [id number] [address] MCV (RBC) [Entitic vol] 90.2 fL Normal 80.0-100.0 [facility] Comment on above: Order Comment: Speci men Type: BLOOD SPECIMENOrdering Facility: [facility] Address: [address] [place] [address] Performed By: #### 5 8410-2 ####[facility] LABORATORYCLIA [id number] [address] Nucleated RBC (Bld) [#/Vol] 10*3/uL Normal <0.01 [facility] Comment on above: Order Comment: Speci men Type: BLOOD SPECIMENOrdering Facility: [facility] Address: [address] [place] [address] Performed By: #### 5 8410-2 ####[facility] LABORATORYCLIA [id number] [address] Platelet mean volume (Bld) [Entitic vol] 9.9 fL Normal 9.0-12.7 [facility] Comment on above: Order Comment: Speci men Type: BLOOD SPECIMENOrdering Facility: [facility] Address: [address] [address] Performed By: #### 5 8410-2 ####[facility] LABORATORYCLIA [id number] [address] Platelets (Bld) [#/Vol] 333 10*3/uL Normal 150-400 [facility] Comment on above: Order Comment: Speci men Type: BLOOD SPECIMENOrdering Facility: [facility] Address: [address] [place] [address] Performed By: #### 5 8410-2 ####[facility] LABORATORYCLIA [id number] [place] [address] [place] RBC (Bld) [#/Vol] 3.38 10*6/uL Low 4.20-6.00 [facility] Comment on above: Order Comment: Speci men Type: BLOOD SPECIMENOrdering Facility: [facility] Address: [address] [place] [address] Performed By: #### 5 8410-2 ####[facility] LABORATORYCLIA [id number] [address] STATES OF [facility] WBC (Bld) [#/Vol] 9.71 10*3/uL Normal 3.70-11.00 [facility] Comment on above: Order Comment: Speci men Type: BLOOD SPECIMENOrdering Facility: [facility] Address: [address] [place] [address] Performed By: #### 5 8410-2 ####[facility] LABORATORYCLIA [id number] [address] [place] CNDSon 06-28-2021 CNDS Normal [facility] CONSULT PROGon 06-28-2021 CONSULT PROG Normal [facility] Magnesium SerPl-mCncon 06-28 Magnesium [Mass/Vol] 2.2 mg/dL Normal 1.7-2.3 [facility] Comment on above: Order Comment: Speci men Type: BLOOD SPECIMENOrdering Facility: [facility] Address: [address] [place] [address] Performed By: #### 2 4321-2, 26173-8 ####[facility] LABORATORYCLIA [id number] [address] [place] Vancomycin random [Mass/Vol] on 06-28-2021 Vancomycin [Mass/Vol] 23.0 ug/mL High 10.0-20.0 [facility] Comment on above: Order Comment: Speci men Type: BLOOD SPECIMENOrdering Facility: [facility] Address: [address] [place] [address] Result Comment: Refe rence ranges and high/low indicator flags are provided as general guidelines only. The treating physician must determine appropriate target levels/dosing based on the specific clinical situation. Performed By: #### 4 091-5 ####[facility] LABORATORYCLIA [id number] [address] [place] ALLIED HEALTHon 06-27-2021 ALLIED HEALTH Normal [facility] Basic metabolic 2000 panelon 06-27-2021 Anion gap [Moles/Vol] 10 mmol/L Normal 9-18 [facility] Comment on above: Order Comment: Speci men Type: BLOOD SPECIMENOrdering Facility: [facility] Address: [address] [place] [address] Performed By: #### 2 4320-06, ####[facility] LABORATORYCLIA [id number] [address] [place] Calcium [Mass/Vol] 8.8 mg/dL Normal 8.5-10.2 [facility] Comment on above: Order Comment: Speci men Type: BLOOD SPECIMENOrdering Facility: [facility] Address: [address] [place] [address] Performed By: #### 2 4320-06, ####[facility] LABORATORYCLIA [id number] [place] [address] [place] Chloride [Moles/Vol] 104 mmol/L Normal 97-105 [facility] Comment on above: Order Comment: Speci men Type: BLOOD SPECIMENOrdering Facility: [facility] Address: [address] [place] [address] Performed By: #### 2 4320-06, ####[facility] LABORATORYCLIA [id number] [place] [address] [place] CO2 [Moles/Vol] 26 mmol/L Normal 22-30 [facility] Comment on above: Order Comment: Speci men Type: BLOOD SPECIMENOrdering Facility: [facility] Address: [address] [address] Performed By: #### 2 2, ####[facility] LABORATORYCLIA [id number] [place] [address] [place] Creatinine [Mass/Vol] 0.57 mg/dL Low 0.73-1.22 [facility] Comment on above: Order Comment: Shira feldman Type: BLOOD SPECIMENOrdering Facility: [facility] Address: [address] [phone] Performed By: #### 2 4321-2, ####[facility] LABORATORYCLIA [id number] [place] [id number] [place] GFR/1.73 sq M.predicted MDRD (S/P/Bld) [Vol rate/Area] mL/min/{1.73_m2} Normal [facility] Comment on above: Order Comment: Shira feldman Type: BLOOD SPECIMENOrdering Facility: [facility] Address: [address] [place] [address] Result Comment: >60e GFR (Estimated GFR) Units [...] actual GFR. Performed By: #### 2 4321-2, ####[facility] LABORATORYCLIA [id number] [place] [id number] [place] Glucose [Mass/Vol] 133 mg/dL High 74-99 [facility] Comment on above: Order Comment: Shira feldman Type: BLOOD SPECIMENOrdering Facility: [facility] Address: [address] [place] [address] Result Comment: The [place] [employer] (ADA) provides guidance for cutoff [...] Standards of Medical Care in Diabetes 2016, [place] [employer]. Diabetes Care. 2016.39(Suppl 1). Performed By: #### 2 4320-06, ####[facility] LABORATORYCLIA [id number] [place] [address] [place] Potassium [Moles/Vol] 4.2 mmol/L Normal 3.7-5.1 [facility] Comment on above: Order Comment: Shira feldman Type: BLOOD SPECIMENOrdering Facility: [facility] Address: [address] [place] [address] Performed By: #### 2 4320-06, ####[facility]NA[facility]IA [id number] [address] STATES OF [facility] Sodium [Moles/Vol] 140 mmol/L Normal 136-144 [facility] Comment on above: Order Comment: Shira feldman Type: BLOOD SPECIMENOrdering Facility: [facility] Address: [address] [place] [address] Performed By: #### 2 4320-06, ####[facility] LABORATORYCLIA [id number] [address] [place] Urea nitrogen [Mass/Vol] 24 mg/dL Normal 9-24 [facility] Comment on above: Order Comment: Shira feldman Type: BLOOD SPECIMENOrdering Facility: [facility] Address: [address] [place] [address] Performed By: #### 2 4320-06, ####[facility] LABORATORYCLIA [id number] [place] [address] [place] CASE MANAGEMon 06-27-2021 CASE MANAGEM Normal [facility] CBC panel Auto (Bld)on 06-27 Erythrocyte distribution width (RBC) [Ratio] 15.8 % High 11.5-15.0 [facility] Comment on above: Order Comment: Speci men Type: BLOOD SPECIMENOrdering Facility: [facility] Address: [address] [place] [address] Performed By: #### 5 8410-2 ####[facility] LABORATORYCLIA [id number] [address] OF [facility] Hematocrit (Bld) [Volume fraction] 31.4 % Low 39.0-51.0 [facility] Comment on above: Order Comment: Speci men Type: BLOOD SPECIMENOrdering Facility: [facility] Address: [address] [place] [address] Performed By: #### 5 8410-2 ####[facility] LABORATORYCLIA [id number] [address] STATES OF [facility] Hemoglobin (Bld) [Mass/Vol] 9.3 g/dL Low 13.0-17.0 [facility] Comment on above: Order Comment: Speci men Type: BLOOD SPECIMENOrdering Facility: [facility] Address: [address] [place] [address] Performed By: #### 5 8410-2 ####[facility]ORATORYCLIA [id number] [address] [place] MCH (RBC) [Entitic mass] 27.0 pg Normal 26.0-34.0 [facility] Comment on above: Order Comment: Speci men Type: BLOOD SPECIMENOrdering Facility: [facility] Address: [address] [place] [address] Performed By: #### 5 8410-2 ####[facility] LABORATORYCLIA [id number] [address] [place] MCHC (RBC) [Mass/Vol] 29.6 g/dL Low 30.5-36.0 [facility] Comment on above: Order Comment: Speci men Type: BLOOD SPECIMENOrdering Facility: [facility] Address: [address] [address] Performed By: #### 5 8410-2 ####[facility] LABORATORYCLIA [id number] [address] MCV (RBC) [Entitic vol] 91.3 fL Normal 80.0-100.0 [facility] Comment on above: Order Comment: Speci men Type: BLOOD SPECIMENOrdering Facility: [facility] Address: [address] [place] [address] Performed By: #### 5 8410-2 ####[facility] LABORATORYCLIA [id number] [address] Nucleated RBC (Bld) [#/Vol] 10*3/uL Normal <0.01 [facility] Comment on above: Order Comment: Speci men Type: BLOOD SPECIMENOrdering Facility: [facility] Address: [address] [place] [address] Performed By: #### 5 8410-2 ####[facility] LABORATORYCLIA [id number] [address] Platelet mean volume (Bld) [Entitic vol] 10.3 fL Normal 9.0-12.7 [facility] Comment on above: Order Comment: Speci men Type: BLOOD SPECIMENOrdering Facility: [facility] Address: [address] [place] [address] Performed By: #### 5 8410-2 ####[facility] LABORATORYCLIA [id number] [address] Platelets (Bld) [#/Vol] 359 10*3/uL Normal 150-400 [facility] Comment on above: Order Comment: Speci men Type: BLOOD SPECIMENOrdering Facility: [facility] Address: [address] [place] [address] Performed By: #### 5 8410-2 ####[facility] LABORATORYCLIA [id number] [address] [place] RBC (Bld) [#/Vol] 3.44 10*6/uL Low 4.20-6.00 [facility] Comment on above: Order Comment: Speci men Type: BLOOD SPECIMENOrdering Facility: [facility] Address: [address] [place] [address] Performed By: #### 5 8410-2 ####[facility] LABORATORYCLIA [id number] [place] [address] [place] WBC (Bld) [#/Vol] 10.73 10*3/uL Normal 3.70-11.00 [facility] Comment on above: Order Comment: Speci men Type: BLOOD SPECIMENOrdering Facility: [facility] Address: [address] [place] [address] Performed By: #### 5 8410-2 ####[facility] LABORATORYCLIA [id number] [address] [place] Magnesium [facility] 06-27 Magnesium [Mass/Vol] 2.2 mg/dL Normal 1.7-2.3 [facility] Comment on above: Order Comment: Speci men Type: BLOOD SPECIMENOrdering Facility: [facility] Address: [address] [place] [address] Performed By: #### 2 4321-2, 01277-2 ####[facility] LABORATORYCLIA [id number] [address] [place] NT-proBNP SerPl-ncon 06-27 Natriuretic peptide.B prohormone N-Terminal [Mass/Vol] 184 pg/mL High <125 [facility] Comment on above: Order Comment: Speci men Type: BLOOD SPECIMENOrdering Facility: [facility] Address: [address] [place] [address] Performed By: #### 3 3762-6 ####[facility] LABORATORYCLIA [id number] [place] [address] [place] NUTRITIONon 06-27-2021 NUTRITION Normal [facility] THERAPY NTon 06-27-2021 THERAPY NT Normal [facility] THERAPY NT Normal [facility] XR CHEST 1V FRONTALon 2021 XR CHEST 1V FRONTAL Normal [facility] Basic metabolic 2000 panelon 06-26-2021 Anion gap [Moles/Vol] 9 mmol/L Normal 9-18 [facility] Comment on above: Order Comment: Speci men Type: BLOOD SPECIMENOrdering Facility: [facility] Address: [address] [place] [address] Performed By: #### 1 9123-9, 36666-9 ####[facility] LABORATORYCLIA [id number] [place] [address] [place] Calcium [Mass/Vol] 8.7 mg/dL Normal 8.5-10.2 [facility] Comment on above: Order Comment: Speci men Type: BLOOD SPECIMENOrdering Facility: [facility] Address: [address] [place] [address] Performed By: #### 1 9123-9, 62022-6 ####[facility]ORATORYCLIA [id number] [place] [address] [place] Chloride [Moles/Vol] 105 mmol/L Normal 97-105 [facility] Comment on above: Order Comment: Speci men Type: BLOOD SPECIMENOrdering Facility: [facility] Address: [address] [place] [address] Performed By: #### 1 9123-9, 89602-4 ####[facility]ORATORYCLIA [id number] [place] [address] [place] CO2 [Moles/Vol] 26 mmol/L Normal 22-30 [facility] Comment on above: Order Comment: Speci men Type: BLOOD SPECIMENOrdering Facility: [facility] Address: [address] [place] [address] Performed By: #### 1 9123-9, 51865-3 ####[facility] LABORATORYCLIA [id number] [place] [address] [place] Creatinine [Mass/Vol] 0.56 mg/dL Low 0.73-1.22 [facility] Comment on above: Order Comment: Johncara feldman Type: BLOOD SPECIMENOrdering Facility: [facility] Address: [address] [phone] Performed By: #### 1 9123-9, 32891-5 ####[facility]ORATORYCLIA [id number] [place] [address] [place] GFR/1.73 sq M.predicted MDRD (S/P/Bld) [Vol rate/Area] mL/min/{1.73_m2} Normal [facility] Comment on above: Order Comment: Johncara feldman Type: BLOOD SPECIMENOrdering Facility: [facility] Address: [address] Result Comment: >60e GFR (Estimated GFR) Units [...] actual GFR. Performed By: #### 1 9123-9, 79142-5 ####[facility]ORATORYCLIA [id number] [place] [address] [place] Glucose [Mass/Vol] 134 mg/dL High 74-99 [facility] Comment on above: Order Comment: Shira feldman Type: BLOOD SPECIMENOrdering Facility: [facility] Address: [address] [phone] Result Comment: The [place] [employer] (ADA) provides guidance for cutoff [...] Standards of Medical Care in Diabetes 2016, [place] [employer]. Diabetes Care. 2016.39(Suppl 1). Performed By: #### 1 9123-9, 42582-9 ####[facility] LABORATORYCLIA [id number] [place] [address] [place] Potassium [Moles/Vol] 3.8 mmol/L Normal 3.7-5.1 [facility] Comment on above: Order Comment: Shira feldman Type: BLOOD SPECIMENOrdering Facility: [facility] Address: [address] [place] [address] Performed By: #### 1 919, 54248-5 ####[facility] LABORATORYCLIA [id number] [address] STATES OF [facility] Sodium [Moles/Vol] 140 mmol/L Normal 136-144 [facility] Comment on above: Order Comment: Shira feldman Type: BLOOD SPECIMENOrdering Facility: [facility] Address: [address] [address] Performed By: #### 1 9123-01, 12745-7 ####[facility] LABORATORYCLIA [id number] [address] STATES [facility] Urea nitrogen [Mass/Vol] 24 mg/dL Normal 9-24 [facility] Comment on above: Order Comment: Shira feldman Type: BLOOD SPECIMENOrdering Facility: [facility] Address: [address] [address] Performed By: #### 1 91239, 42834-7 ####[facility] LABORATORYCLIA [id number] [address] CBC panel Auto (Bld)on 06-26 Erythrocyte distribution width (RBC) [Ratio] 15.9 % High 11.5-15.0 [facility] Comment on above: Order Comment: Shira feldman Type: BLOOD SPECIMENOrdering Facility: [facility] Address: [address] [address] Performed By: #### 5 8410-2 ####[facility] LABORATORYCLIA [id number] [address] Hematocrit (Bld) [Volume fraction] 29.8 % Low 39.0-51.0 [facility] Comment on above: Order Comment: Speci men Type: BLOOD SPECIMENOrdering Facility: [facility] Address: [address] [place] [address] Performed By: #### 5 8410-2 ####[facility] LABORATORYCLIA [id number] [address] OF [facility] Hemoglobin (Bld) [Mass/Vol] 9.1 g/dL Low 13.0-17.0 [facility] Comment on above: Order Comment: Speci men Type: BLOOD SPECIMENOrdering Facility: [facility] Address: [address] [place] [address] Performed By: #### 5 8410-2 ####[facility]ORATORYCLIA [id number] [address] MCH (RBC) [Entitic mass] 27.8 pg Normal 26.0-34.0 [facility] Comment on above: Order Comment: Speci men Type: BLOOD SPECIMENOrdering Facility: [facility] Address: [address] [place] [address] Performed By: #### 5 8410-2 ####[facility]ORATORYCLIA [id number] [address] [place] MCHC (RBC) [Mass/Vol] 30.5 g/dL Normal 30.5-36.0 [facility] Comment on above: Order Comment: Speci men Type: BLOOD SPECIMENOrdering Facility: [facility] Address: [address] [place] [address] Performed By: #### 5 8410-2 ####[facility] LABORATORYCLIA [id number] [address] MCV (RBC) [Entitic vol] 91.1 fL Normal 80.0-100.0 [facility] Comment on above: Order Comment: Speci men Type: BLOOD SPECIMENOrdering Facility: [facility] Address: [facility] [address] Performed By: #### 5 8410-2 ####[facility] LABORATORYCLIA [id number] [address] [place] Nucleated RBC (Bld) [#/Vol] 10*3/uL Normal <0.01 [facility] Comment on above: Order Comment: Speci men Type: BLOOD SPECIMENOrdering Facility: [facility] Address: [address] [place] [address] Performed By: #### 5 8410-2 ####[facility]ORATORYCLIA [id number] [address] [place] Platelet mean volume (Bld) [Entitic vol] 10.3 fL Normal 9.0-12.7 [facility] Comment on above: Order Comment: Speci men Type: BLOOD SPECIMENOrdering Facility: [facility] Address: [address] [place] [address] Performed By: #### 5 8410-2 ####[facility]ORATORYCLIA [id number] [address] [place] Platelets (Bld) [#/Vol] 336 10*3/uL Normal 150-400 [facility] Comment on above: Order Comment: Speci men Type: BLOOD SPECIMENOrdering Facility: [facility] Address: [address] Performed By: #### 5 8410-2 ####[facility]ORATORYCLIA [id number] [place] [address] [place] RBC (Bld) [#/Vol] 3.27 10*6/uL Low 4.20-6.00 [facility] Comment on above: Order Comment: Speci men Type: BLOOD SPECIMENOrdering Facility: [facility] Address: [address] [place], [place] [address] Performed By: #### 5 8410-2 ####[facility]ORATORYCLIA [id number] [address] [place] WBC (Bld) [#/Vol] 9.14 10*3/uL Normal 3.70-11.00 [facility] Comment on above: Order Comment: Speci men Type: BLOOD SPECIMENOrdering Facility: [facility] Address: [address] [place] [address] Performed By: #### 5 8410-2 ####[facility] LABORATORYCLIA [id number] [address] OF [facility] CONSULT PROGon 06-26-2021 CONSULT PROG Normal [facility] Magnesium SerPl-mCncon 06-26 Magnesium [Mass/Vol] 2.2 mg/dL Normal 1.7-2.3 [facility] Comment on above: Order Comment: Speci men Type: BLOOD SPECIMENOrdering Facility: [facility] Address: [address] [place] [address] Performed By: #### 1 9123-9, 24669-7 ####[facility]ORATORYCLIA [id number] [address] NURSING PROGon 06-26-2021 NURSING PROG Normal [facility] NURSING PROG Normal [facility] Basic metabolic 2000 panelon 06-25-2021 Anion gap [Moles/Vol] 8 mmol/L Low 9-18 [facility] Comment on above: Order Comment: Speci men Type: BLOOD SPECIMENOrdering Facility: [facility] Address: [address] [address] Performed By: #### 2 4321-2, 91280-5 ####[facility]ORATORYCLIA [id number] [address] Calcium [Mass/Vol] 8.8 mg/dL Normal 8.5-10.2 [facility] Comment on above: Order Comment: Speci men Type: BLOOD SPECIMENOrdering Facility: [facility] Address: [address] [place] [address] Performed By: #### 2 432-2, ####[facility]ORATORYCLIA [id number] [place] [address] [place] Chloride [Moles/Vol] 105 mmol/L Normal 97-105 [facility] Comment on above: Order Comment: Speci men Type: BLOOD SPECIMENOrdering Facility: [facility] Address: [address] [place] [address] Performed By: #### 2 432-2, ####[facility] LABORATORYCLIA [id number] [address] [id number] [place] CO2 [Moles/Vol] 27 mmol/L Normal 22-30 [facility] Comment on above: Order Comment: Speci men Type: BLOOD SPECIMENOrdering Facility: [facility] Address: [address] [place] [address] Performed By: #### 2 43205-08, ####[facility] LABORATORYCLIA [id number] [address] [place] Creatinine [Mass/Vol] 0.59 mg/dL Low 0.73-1.22 [facility] Comment on above: Order Comment: Speci men Type: BLOOD SPECIMENOrdering Facility: [facility] Address: [address] [place] [address] Performed By: #### 2 432-2, ####[facility] LABORATORYCLIA [id number] [place] [address] [place] GFR/1.73 sq M.predicted MDRD (S/P/Bld) [Vol rate/Area] mL/min/{1.73_m2} Normal [facility] Comment on above: Order Comment: Speci men Type: BLOOD SPECIMENOrdering Facility: [facility] Address: [address] [place] [address] Result Comment: >60e GFR (Estimated GFR) Units [...] reflect actual GFR. Performed By: #### 2 432-, ####[facility] LABORATORYCLIA [id number] [place] [address] [place] Glucose [Mass/Vol] 132 mg/dL High 74-99 [facility] Comment on above: Order Comment: Shira feldman Type: BLOOD SPECIMENOrdering Facility: [facility] Address: [address] [place], [place] [phone] Result Comment: The [place] [employer] (ADA) provides guidance for cutoff [...] Standards of Medical Care in Diabetes 2016, [place] [employer]. Diabetes Care. 2016.39(Suppl 1). Performed By: #### 2 4320-06, ####[facility] LABORATORYCLIA [id number] [address] [id number] [place] Potassium [Moles/Vol] 3.9 mmol/L Normal 3.7-5.1 [facility] Comment on above: Order Comment: Shira feldman Type: BLOOD SPECIMENOrdering Facility: [facility] Address: [address] [place] [address] Performed By: #### 2 43205-08, ####[facility] LABORATORYCLIA [id number] [address] Sodium [Moles/Vol] 140 mmol/L Normal 136-144 [facility] Comment on above: Order Comment: Speci men Type: BLOOD SPECIMENOrdering Facility: [facility] Address: [address] [place] [address] Performed By: #### 2 4321-2, ####[facility] LABORATORYCLIA [id number] [address] [place] Urea nitrogen [Mass/Vol] 24 mg/dL Normal 9-24 [facility] Comment on above: Order Comment: Speci men Type: BLOOD SPECIMENOrdering Facility: [facility] Address: [address] [place] [address] Performed By: #### 2 432-2, ####[facility] LABORATORYCLIA [id number] [address] CASE MANAGEMon 06-25-2021 CASE MANAGEM Normal [facility] CBC panel Auto (Bld)on 06-25 Erythrocyte distribution width (RBC) [Ratio] 15.9 % High 11.5-15.0 [facility] Comment on above: Order Comment: Speci men Type: BLOOD SPECIMENOrdering Facility: [facility] Address: [address] [place] [address] Performed By: #### 5 8410-2 ####[facility] LABORATORYCLIA [id number] [address] [place] Hematocrit (Bld) [Volume fraction] 31.0 % Low 39.0-51.0 [facility] Comment on above: Order Comment: Speci men Type: BLOOD SPECIMENOrdering Facility: [facility] Address: [address] [place] [address] Performed By: #### 5 8410-2 ####[facility] LABORATORYCLIA [id number] [address] [place] Hemoglobin (Bld) [Mass/Vol] 9.4 g/dL Low 13.0-17.0 [facility] Comment on above: Order Comment: Speci men Type: BLOOD SPECIMENOrdering Facility: [facility] Address: [address] [place] [address] Performed By: #### 5 8410-2 ####[facility] LABORATORYCLIA [id number] [address] MCH (RBC) [Entitic mass] 28.1 pg Normal 26.0-34.0 [facility] Comment on above: Order Comment: Speci men Type: BLOOD SPECIMENOrdering Facility: [facility] Address: [address] [place] [address] Performed By: #### 5 8410-2 ####[facility] LABORATORYCLIA [id number] [address] MCHC (RBC) [Mass/Vol] 30.3 g/dL Low 30.5-36.0 [facility] Comment on above: Order Comment: Speci men Type: BLOOD SPECIMENOrdering Facility: [facility] Address: [address] [place] [address] Performed By: #### 5 8410-2 ####[facility] LABORATORYCLIA [id number] [address] MCV (RBC) [Entitic vol] 92.5 fL Normal 80.0-100.0 [facility] Comment on above: Order Comment: Speci men Type: BLOOD SPECIMENOrdering Facility: [facility] Address: [address] [place] [address] Performed By: #### 5 8410-2 ####[facility] LABORATORYCLIA [id number] [address] Nucleated RBC (Bld) [#/Vol] 10*3/uL Normal <0.01 [facility] Comment on above: Order Comment: Speci men Type: BLOOD SPECIMENOrdering Facility: [facility] Address: [address] [place] [address] Performed By: #### 5 8410-2 ####[facility] LABORATORYCLIA [id number] [address] [place] Platelet mean volume (Bld) [Entitic vol] 10.5 fL Normal 9.0-12.7 [facility] Comment on above: Order Comment: Speci men Type: BLOOD SPECIMENOrdering Facility: [facility] Address: [address] [place] [address] Performed By: #### 5 8410-2 ####[facility] LABORATORYCLIA [id number] [place] [address] [place] Platelets (Bld) [#/Vol] 311 10*3/uL Normal 150-400 [facility] Comment on above: Order Comment: Speci men Type: BLOOD SPECIMENOrdering Facility: [facility] Address: [address] [place] [address] Performed By: #### 5 8410-2 ####[facility] LABORATORYCLIA [id number] [place] [address] [place] RBC (Bld) [#/Vol] 3.35 10*6/uL Low 4.20-6.00 [facility] Comment on above: Order Comment: Speci men Type: BLOOD SPECIMENOrdering Facility: [facility] Address: [address] [place] [address] Performed By: #### 5 8410-2 ####[facility] LABORATORYCLIA [id number] [address] [place] WBC (Bld) [#/Vol] 9.57 10*3/uL Normal 3.70-11.00 [facility] Comment on above: Order Comment: Speci men Type: BLOOD SPECIMENOrdering Facility: [facility] Address: [address] [place] [address] Performed By: #### 5 8410-2 ####[facility] LABORATORYCLIA [id number] [address] [place] Magnesium SerPl-mCncon 06-25 Magnesium [Mass/Vol] 2.4 mg/dL High 1.7-2.3 [facility] Comment on above: Order Comment: Speci men Type: BLOOD SPECIMENOrdering Facility: [facility] Address: [address] [place] [address] Performed By: #### 2 4321-2, 76141-0 ####[facility]ORATORYCLIA [id number] [place] [address] [place] Basic metabolic 2000 panelon 06-24-2021 Anion gap [Moles/Vol] 9 mmol/L Normal 9-18 [facility] Comment on above: Order Comment: Speci men Type: BLOOD SPECIMENOrdering Facility: [facility] Address: [address] [place] [address] Performed By: #### 1 9123-9, 67958-6 ####[facility] LABORATORYCLIA [id number] [place] [address] [place] Calcium [Mass/Vol] 8.6 mg/dL Normal 8.5-10.2 [facility] Comment on above: Order Comment: Speci men Type: BLOOD SPECIMENOrdering Facility: [facility] Address: [address] [place] [address] Performed By: #### 1 9123-9, 95257-8 ####[facility]ORATORYCLIA [id number] [place] [address] [place] Chloride [Moles/Vol] 103 mmol/L Normal 97-105 [facility] Comment on above: Order Comment: Speci men Type: BLOOD SPECIMENOrdering Facility: [facility] Address: [address] [place] [address] Performed By: #### 1 9123-9, 84212-1 ####[facility] LABORATORYCLIA [id number] [place] [address] [place] CO2 [Moles/Vol] 26 mmol/L Normal 22-30 [facility] Comment on above: Order Comment: Speci men Type: BLOOD SPECIMENOrdering Facility: [facility] Address: [address] [place] [address] Performed By: #### 1 9123-9, 21582-7 ####[facility]CLIA [id number] [place] [id number] [place] Creatinine [Mass/Vol] 0.60 mg/dL Low 0.73-1.22 [facility] Comment on above: Order Comment: Johncara feldman Type: BLOOD SPECIMENOrdering Facility: [facility] Address: [address] [place] [address] Performed By: #### 1 9123-9, 43479-8 ####[facility]IA [id number] [place] [address] [place] GFR/1.73 sq M.predicted MDRD (S/P/Bld) [Vol rate/Area] mL/min/{1.73_m2} Normal [facility] Comment on above: Order Comment: [facility] Type: BLOOD SPECIMENOrdering Facility: [facility] Address: [address] [place] [address] Result Comment: >60e GFR (Estimated GFR) Units [...] actual GFR. Performed By: #### 1 9123-9, 36467-1 ####[facility] LABORATORYCLIA [id number] [place] [address] [place] Glucose [Mass/Vol] 126 mg/dL High 74-99 [facility] Comment on above: Order Comment: Shira francia Type: BLOOD SPECIMENOrdering Facility: [facility] Address: [address] [address] Result Comment: The [place] [employer] (ADA) provides guidance for cutoff [...] Standards of Medical Care in Diabetes 2016, [place] [employer]. Diabetes Care. 2016.39(Suppl 1). Performed By: #### 1 9123-9, 73900-0 ####[facility] LABORATORYCLIA [id number] [place] [address] [place] Potassium [Moles/Vol] 3.9 mmol/L Normal 3.7-5.1 [facility] Comment on above: Order Comment: Johni men Type: BLOOD SPECIMENOrdering Facility: [facility] Address: [address] [place] [address] Performed By: #### 1 91239, 82617-7 ####[facility]CLIA [id number] [address] STATES OF [facility] Sodium [Moles/Vol] 138 mmol/L Normal 136-144 [facility] Comment on above: Order Comment: Shira feldman Type: BLOOD SPECIMENOrdering Facility: [facility] Address: [address] [place] [address] Performed By: #### 1 91239, 89959-0 ####[facility] LABORATORYCLIA [id number] [address] [place] Urea nitrogen [Mass/Vol] 24 mg/dL Normal 9-24 [facility] Comment on above: Order Comment: Johni francia Type: BLOOD SPECIMENOrdering Facility: [facility] Address: [address] [place] [address] Performed By: #### 1 9123-9, 16325-5 ####[facility] LABORATORYCLIA [id number] [address] [place] CASE MANAGEMon 06-24-2021 CASE MANAGEM Normal [facility] CASE MANAGEM Normal [facility] CASE MANAGEM Normal [facility] CBC panel Auto (Bld)on 06-24 Erythrocyte distribution width (RBC) [Ratio] 16.1 % High 11.5-15.0 [facility] Comment on above: Order Comment: Speci men Type: BLOOD SPECIMENOrdering Facility: [facility] Address: [address] [place] [address] Performed By: #### 5 8410-2 ####[facility] LABORATORYCLIA [id number] [address] STATES OF [facility] Hematocrit (Bld) [Volume fraction] 31.7 % Low 39.0-51.0 [facility] Comment on above: Order Comment: Speci men Type: BLOOD SPECIMENOrdering Facility: [facility] Address: [address] [place] [address] Performed By: #### 5 8410-2 ####[facility] LABORATORYCLIA [id number] [address] STATES OF [facility] Hemoglobin (Bld) [Mass/Vol] 9.7 g/dL Low 13.0-17.0 [facility] Comment on above: Order Comment: Speci men Type: BLOOD SPECIMENOrdering Facility: [facility] Address: [address] [place] [address] Performed By: #### 5 8410-2 ####[facility] LABORATORYCLIA [id number] [address] [place] MCH (RBC) [Entitic mass] 28.0 pg Normal 26.0-34.0 [facility] Comment on above: Order Comment: Speci men Type: BLOOD SPECIMENOrdering Facility: [facility] Address: [address] [place] [address] Performed By: #### 5 8410-2 ####[facility] LABORATORYCLIA [id number] [address] [place] MCHC (RBC) [Mass/Vol] 30.6 g/dL Normal 30.5-36.0 [facility] Comment on above: Order Comment: Speci men Type: BLOOD SPECIMENOrdering Facility: [facility] Address: [address] [address] Performed By: #### 5 8410-2 ####[facility] LABORATORYCLIA [id number] [address] MCV (RBC) [Entitic vol] 91.4 fL Normal 80.0-100.0 [facility] Comment on above: Order Comment: Speci men Type: BLOOD SPECIMENOrdering Facility: [facility] Address: [address] [address] Performed By: #### 5 8410-2 ####[facility]ORATORYCLIA [id number] [address] [place] Nucleated RBC (Bld) [#/Vol] 10*3/uL Normal <0.01 [facility] Comment on above: Order Comment: Speci men Type: BLOOD SPECIMENOrdering Facility: [facility] Address: [address] [address] Performed By: #### 5 8410-2 ####[facility] LABORATORYCLIA [id number] [address] [place] Platelet mean volume (Bld) [Entitic vol] 11.0 fL Normal 9.0-12.7 [facility] Comment on above: Order Comment: Speci men Type: BLOOD SPECIMENOrdering Facility: [facility] Address: [address] Performed By: #### 5 8410-2 ####[facility] LABORATORYCLIA [id number] [address] [place] Platelets (Bld) [#/Vol] 358 10*3/uL Normal 150-400 [facility] Comment on above: Order Comment: Speci men Type: BLOOD SPECIMENOrdering Facility: [facility] Address: [address] [address] Performed By: #### 5 8410-2 ####[facility] LABORATORYCLIA [id number] [place] [address] [place] RBC (Bld) [#/Vol] 3.47 10*6/uL Low 4.20-6.00 [facility] Comment on above: Order Comment: Speci men Type: BLOOD SPECIMENOrdering Facility: [facility] Address: [address] [place] [address] Performed By: #### 5 8410-2 ####[facility] LABORATORYCLIA [id number] [place] [address] [place] [facility] WBC (Bld) [#/Vol] 10.07 10*3/uL Normal 3.70-11.00 [facility] Comment on above: Order Comment: Speci men Type: BLOOD SPECIMENOrdering Facility: [facility] Address: [address] [place] [address] Performed By: #### 5 8410-2 ####[facility] LABORATORYCLIA [id number] [address] [place] Magnesium SerPl-mCncon 06-24 Magnesium [Mass/Vol] 2.3 mg/dL Normal 1.7-2.3 [facility] Comment on above: Order Comment: Speci men Type: BLOOD SPECIMENOrdering Facility: [facility] Address: [address] [place] [address] Performed By: #### 1 9123-9, 18733-6 ####[facility]ORATORYCLIA [id number] [place] [address] [place] ALLIED HEALTHon 06-23-2021 ALLIED HEALTH Normal [facility] Basic metabolic 2000 panelon 06-23-2021 Anion gap [Moles/Vol] 9 mmol/L Normal 9-18 [facility] Comment on above: Order Comment: Speci men Type: BLOOD SPECIMENOrdering Facility: [facility] Address: [address] [place] [address] Performed By: #### 1 9123-9, 14218-2 ####[facility] LABORATORYCLIA [id number] [place] [address] [place] Calcium [Mass/Vol] 8.4 mg/dL Low 8.5-10.2 [facility] Comment on above: Order Comment: Speci men Type: BLOOD SPECIMENOrdering Facility: [facility] Address: [address] [place] [address] Performed By: #### 1 9123-9, 00204-9 ####[facility] LABORATORYCLIA [id number] [place] [address] [place] Chloride [Moles/Vol] 104 mmol/L Normal 97-105 [facility] Comment on above: Order Comment: Speci men Type: BLOOD SPECIMENOrdering Facility: [facility] Address: [address] [place] [address] Performed By: #### 1 9123-9, 55513-9 ####[facility]ORATORYCLIA [id number] [address] STATES OF [facility] CO2 [Moles/Vol] 26 mmol/L Normal 22-30 [facility] Comment on above: Order Comment: Speci men Type: BLOOD SPECIMENOrdering Facility: [facility] Address: [address] [place] [address] Performed By: #### 1 9123-9, 44707-9 ####[facility] LABORATORYCLIA [id number] [address] [place] Creatinine [Mass/Vol] 0.62 mg/dL Low 0.73-1.22 [facility] Comment on above: Order Comment: Speci men Type: BLOOD SPECIMENOrdering Facility: [facility] Address: [address] [place] [address] Performed By: #### 1 9123-9, 56774-5 ####[facility] LABORATORYCLIA [id number] [place] [address] [place] GFR/1.73 sq M.predicted MDRD (S/P/Bld) [Vol rate/Area] mL/min/{1.73_m2} Normal [facility] Comment on above: Order Comment: Speci men Type: BLOOD SPECIMENOrdering Facility: [facility] Address: [address] [phone] Result Comment: >60e GFR (Estimated GFR) Units [...] actual GFR. Performed By: #### 1 9123-9, 07258-7 ####[facility]CLIA [id number] [place] [address] [place] Glucose [Mass/Vol] 111 mg/dL High 74-99 [facility] Comment on above: Order Comment: Shira feldman Type: BLOOD SPECIMENOrdering Facility: [facility] Address: [address] [place] [address] Result Comment: The [place] [employer] (ADA) provides guidance for cutoff [...] Standards of Medical Care in Diabetes 2016, [place] [employer]. Diabetes Care. 2016.39(Suppl 1). Performed By: #### 1 9123-9, 06310-3 ####[facility] LABORATORYCLIA [id number] [place] [address] [place] Potassium [Moles/Vol] 4.1 mmol/L Normal 3.7-5.1 [facility] Comment on above: Order Comment: Shira feldman Type: BLOOD SPECIMENOrdering Facility: [facility] Address: [address] [address] Performed By: #### 1 9123-9, 48574-4 ####[facility] LABORATORYCLIA [id number] [address] Sodium [Moles/Vol] 139 mmol/L Normal 136-144 [facility] Comment on above: Order Comment: Speci men Type: BLOOD SPECIMENOrdering Facility: [facility] Address: [address] [place] [address] Performed By: #### 1 9123-9, 24784-0 ####[facility] LABORATORYCLIA [id number] [address] STATES [facility] Urea nitrogen [Mass/Vol] 26 mg/dL High 9-24 [facility] Comment on above: Order Comment: Speci men Type: BLOOD SPECIMENOrdering Facility: [facility] Address: [address] [place] [address] Performed By: #### 1 9123-9, 12226-4 ####[facility] LABORATORYCLIA [id number] [address] STATES [facility] CASE MANAGEMon 06-23-2021 CASE MANAGEM Normal [facility] CBC panel Auto (Bld)on 06-23 Erythrocyte distribution width (RBC) [Ratio] 16.0 % High 11.5-15.0 [facility] Comment on above: Order Comment: Speci men Type: BLOOD SPECIMENOrdering Facility: [facility] Address: [address] [place] [address] Performed By: #### 5 8410-2 ####[facility] LABORATORYCLIA [id number] [address] Hematocrit (Bld) [Volume fraction] 31.1 % Low 39.0-51.0 [facility] Comment on above: Order Comment: Speci men Type: BLOOD SPECIMENOrdering Facility: [facility] Address: [address] [place] [address] Performed By: #### 5 8410-2 ####[facility]ORATORYCLIA [id number] [address] STATES OF [facility] Hemoglobin (Bld) [Mass/Vol] 9.5 g/dL Low 13.0-17.0 [facility] Comment on above: Order Comment: Speci men Type: BLOOD SPECIMENOrdering Facility: [facility] Address: [address] [place] [address] Performed By: #### 5 8410-2 ####[facility]ORATORYCLIA [id number] [address] MCH (RBC) [Entitic mass] 28.1 pg Normal 26.0-34.0 [facility] Comment on above: Order Comment: Speci men Type: BLOOD SPECIMENOrdering Facility: [facility] Address: [address] [place] [address] Performed By: #### 5 8410-2 ####[facility]ORATORYCLIA [id number] [address] MCHC (RBC) [Mass/Vol] 30.5 g/dL Normal 30.5-36.0 [facility] Comment on above: Order Comment: Speci men Type: BLOOD SPECIMENOrdering Facility: [facility] Address: [address] [place] [address] Performed By: #### 5 8410-2 ####[facility]ORATORYCLIA [id number] [address] MCV (RBC) [Entitic vol] 92.0 fL Normal 80.0-100.0 [facility] Comment on above: Order Comment: Speci men Type: BLOOD SPECIMENOrdering Facility: [facility] Address: [address] [place] [address] Performed By: #### 5 8410-2 ####[facility]ORATORYCLIA [id number] [address] Nucleated RBC (Bld) [#/Vol] 10*3/uL Normal <0.01 [facility] Comment on above: Order Comment: Speci men Type: BLOOD SPECIMENOrdering Facility: [facility] Address: [address] [address] Performed By: #### 5 8410-2 ####[facility]ORATORYCLIA [id number] [address] [place] Platelet mean volume (Bld) [Entitic vol] 11.0 fL Normal 9.0-12.7 [facility] Comment on above: Order Comment: Speci men Type: BLOOD SPECIMENOrdering Facility: [facility] Address: [address] [place] [address] Performed By: #### 5 8410-2 ####[facility] LABORATORYCLIA [id number] [address] [place] Platelets (Bld) [#/Vol] 361 10*3/uL Normal 150-400 [facility] Comment on above: Order Comment: Speci men Type: BLOOD SPECIMENOrdering Facility: [facility] Address: [address] [place] [address] Performed By: #### 5 8410-2 ####[facility] LABORATORYCLIA [id number] [place] [address] [place] RBC (Bld) [#/Vol] 3.38 10*6/uL Low 4.20-6.00 [facility] Comment on above: Order Comment: Speci men Type: BLOOD SPECIMENOrdering Facility: [facility] Address: [address] [place], [place] [address] Performed By: #### 5 8410-2 ####[facility] LABORATORYCLIA [id number] [address] [place] WBC (Bld) [#/Vol] 9.02 10*3/uL Normal 3.70-11.00 [facility] Comment on above: Order Comment: Speci men Type: BLOOD SPECIMENOrdering Facility: [facility] Address: [address] [place] [address] Performed By: #### 5 8410-2 ####[facility] LABORATORYCLIA [id number] [address] [place] CONSULT PROGon 06-23-2021 CONSULT PROG Normal [facility] CONSULT PROG Normal [facility] Magnesium SerPl-mCncon 06-23 Magnesium [Mass/Vol] 2.4 mg/dL High 1.7-2.3 [facility] Comment on above: Order Comment: Speci men Type: BLOOD SPECIMENOrdering Facility: [facility] Address: [address] [place] [address] Performed By: #### 1 9123-9, 13063-3 ####[facility] LABORATORYCLIA [id number] [address] THERAPY NTon 06-23-2021 THERAPY NT Normal [facility] Vancomycin random [Mass/Vol] on 06-23-2021 Vancomycin [Mass/Vol] 22.8 ug/mL High 10.0-20.0 [facility] Comment on above: Order Comment: Speci men Type: BLOOD SPECIMENOrdering Facility: [facility] Address: [address] [place] [address] Result Comment: Refe rence ranges and high/low indicator flags are provided as general guidelines only. The treating physician must determine appropriate target levels/dosing based on the specific clinical situation. Performed By: #### 4 091-5 ####[facility] LABORATORYCLIA [id number] [address] [place] XR MOD BARIUM SWALLOW W SPEE Lore 06-23-2021 XR MOD BARIUM SWALLOW W SPEECH Normal [facility] Basic metabolic 2000 panelon 06-22-2021 Anion gap [Moles/Vol] 6 mmol/L Low 9-18 [facility] Comment on above: Order Comment: Speci men Type: BLOOD SPECIMENOrdering Facility: [facility] Address: [address] [place] [address] Performed By: #### 2 4321-2, 90737-5 ####[facility] LABORATORYCLIA [id number] [place] [address] [place] Calcium [Mass/Vol] 8.5 mg/dL Normal 8.5-10.2 [facility] Comment on above: Order Comment: Speci men Type: BLOOD SPECIMENOrdering Facility: [facility] Address: [address] [place] [address] Performed By: #### 2 1-2, ####[facility] LABORATORYCLIA [id number] [place] [address] [place] Chloride [Moles/Vol] 105 mmol/L Normal 97-105 [facility] Comment on above: Order Comment: Speci men Type: BLOOD SPECIMENOrdering Facility: [facility] Address: [address] [place] [address] Performed By: #### 2 4320-2, ####[facility] LABORATORYCLIA [id number] [address] STATES OF [facility] CO2 [Moles/Vol] 26 mmol/L Normal 22-30 [facility] Comment on above: Order Comment: Speci men Type: BLOOD SPECIMENOrdering Facility: [facility] Address: [address] [place] [address] Performed By: #### 2 2, ####[facility] LABORATORYCLIA [id number] [place] [address] [place] Creatinine [Mass/Vol] 0.56 mg/dL Low 0.73-1.22 [facility] Comment on above: Order Comment: Speci men Type: BLOOD SPECIMENOrdering Facility: [facility] Address: [address] [place] [address] Performed By: #### 2 4320-2, ####[facility] LABORATORYCLIA [id number] [place] [address] [place] GFR/1.73 sq M.predicted MDRD (S/P/Bld) [Vol rate/Area] mL/min/{1.73_m2} Normal [facility] Comment on above: Order Comment: Speci men Type: BLOOD SPECIMENOrdering Facility: [facility] Address: [address] [id number] Result Comment: >60e GFR (Estimated GFR) Units [...] actual GFR. Performed By: #### 2 4321-2, 76482-6 ####[facility]NA[facility]IA [id number] [place] [address] [place] Glucose [Mass/Vol] 120 mg/dL High 74-99 [facility] Comment on above: Order Comment: Shira feldman Type: BLOOD SPECIMENOrdering Facility: [facility] Address: [address] [place] [address] Result Comment: The [place] [employer] (ADA) provides guidance for cutoff [...] Standards of Medical Care in Diabetes 2016, [place] [employer]. Diabetes Care. 2016.39(Suppl 1). Performed By: #### 2 4321-2, 31939-3 ####[facility] LABORATORYCLIA [id number] [place] [id number] [place] Potassium [Moles/Vol] 4.0 mmol/L Normal 3.7-5.1 [facility] Comment on above: Order Comment: Shira feldman Type: BLOOD SPECIMENOrdering Facility: [facility] Address: [address] [address] Performed By: #### 2 4321-2, ####[facility] LABORATORYCLIA [id number] [address] Sodium [Moles/Vol] 137 mmol/L Normal 136-144 [facility] Comment on above: Order Comment: Speci men Type: BLOOD SPECIMENOrdering Facility: [facility] Address: [address] [place] [address] Performed By: #### 2 4321-2, ####[facility] LABORATORYCLIA [id number] [address] STATES [facility] Urea nitrogen [Mass/Vol] 25 mg/dL High 9-24 [facility] Comment on above: Order Comment: Speci men Type: BLOOD SPECIMENOrdering Facility: [facility] Address: [address] [place] [address] Performed By: #### 2 2, ####[facility] LABORATORYCLIA [id number] [address] [place] CASE MANAGEMon 06-22-2021 CASE MANAGEM Normal [facility] CBC panel Auto (Bld)on 06-22 Erythrocyte distribution width (RBC) [Ratio] 16.0 % High 11.5-15.0 [facility] Comment on above: Order Comment: Speci men Type: BLOOD SPECIMENOrdering Facility: [facility] Address: [address] [address] Performed By: #### 5 8410-2 ####[facility] LABORATORYCLIA [id number] [address] [place] [facility] Hematocrit (Bld) [Volume fraction] 30.5 % Low 39.0-51.0 [facility] Comment on above: Order Comment: Speci men Type: BLOOD SPECIMENOrdering Facility: [facility] Address: [address] [place] [address] Performed By: #### 5 8410-2 ####[facility] [id number] [address] OF [facility] Hemoglobin (Bld) [Mass/Vol] 9.3 g/dL Low 13.0-17.0 [facility] Comment on above: Order Comment: Speci men Type: BLOOD SPECIMENOrdering Facility: [facility] Address: [address] [place] [address] Performed By: #### 5 8410-2 ####[facility] LABORATORYCLIA [id number] [address] MCH (RBC) [Entitic mass] 28.4 pg Normal 26.0-34.0 [facility] Comment on above: Order Comment: Speci men Type: BLOOD SPECIMENOrdering Facility: [facility] Address: [address] [place] [address] Performed By: #### 5 8410-2 ####[facility] LABORATORYCLIA [id number] [address] MCHC (RBC) [Mass/Vol] 30.5 g/dL Normal 30.5-36.0 [facility] Comment on above: Order Comment: Speci men Type: BLOOD SPECIMENOrdering Facility: [facility] Address: [address] [place] [address] Performed By: #### 5 8410-2 ####[facility] LABORATORYCLIA [id number] [address] MCV (RBC) [Entitic vol] 93.3 fL Normal 80.0-100.0 [facility] Comment on above: Order Comment: Speci men Type: BLOOD SPECIMENOrdering Facility: [facility] Address: [address] [place] [address] Performed By: #### 5 8410-2 ####[facility]ORATORYCLIA [id number] [address] Nucleated RBC (Bld) [#/Vol] 10*3/uL Normal <0.01 [facility] Comment on above: Order Comment: Speci men Type: BLOOD SPECIMENOrdering Facility: [facility] Address: [address] [place] [address] Performed By: #### 5 8410-2 ####[facility] LABORATORYCLIA [id number] [address] [place] Platelet mean volume (Bld) [Entitic vol] 11.5 fL Normal 9.0-12.7 [facility] Comment on above: Order Comment: Speci men Type: BLOOD SPECIMENOrdering Facility: [facility] Address: [address] [place] [address] Performed By: #### 5 8410-2 ####[facility] LABORATORYCLIA [id number] [address] [place] Platelets (Bld) [#/Vol] 346 10*3/uL Normal 150-400 [facility] Comment on above: Order Comment: Speci men Type: BLOOD SPECIMENOrdering Facility: [facility] Address: [address] [place] [address] Performed By: #### 5 8410-2 ####[facility]ORATORYCLIA [id number] [address] [place] RBC (Bld) [#/Vol] 3.27 10*6/uL Low 4.20-6.00 [facility] Comment on above: Order Comment: Speci men Type: BLOOD SPECIMENOrdering Facility: [facility] Address: [address] [place] [address] Performed By: #### 5 8410-2 ####[facility] LABORATORYCLIA [id number] [address] [place] WBC (Bld) [#/Vol] 9.44 10*3/uL Normal 3.70-11.00 [facility] Comment on above: Order Comment: Speci men Type: BLOOD SPECIMENOrdering Facility: [facility] Address: [address] [place] [address] Performed By: #### 5 8410-2 ####[facility] LABORATORYCLIA [id number] [address] [place] HEMOGLOBIN (HGB)on Hemoglobin (Bld) [Mass/Vol] 9.7 g/dL Low 13.0-17.0 [facility] Comment on above: Order Comment: Speci men Type: BLOOD SPECIMENOrdering Facility: [facility] Address: [address] [place] [address] Performed By: #### H GB ####[facility] LABORATORYCLIA [id number] [address] [place] Magnesium SerPl-mCncon 06-22 Magnesium [Mass/Vol] 2.4 mg/dL High 1.7-2.3 [facility] Comment on above: Order Comment: Speci men Type: BLOOD SPECIMENOrdering Facility: [facility] Address: [address] [place] [address] Performed By: #### 2 4321-2, 52712-5 ####[facility] LABORATORYCLIA [id number] [address] [place] THERAPY NTon 06-22-2021 THERAPY NT Normal [facility] THERAPY NT Normal [facility] aPTT PPPon 06-22-2021 aPTT Coag (PPP) [Time] 62.3 s High 23.0-32.4 [facility] Comment on above: Order Comment: Speci men Type: BLOOD SPECIMENOrdering Facility: [facility] Address: [address] [place] [address] Performed By: #### 1 4979-9 ####[facility] LABORATORYCLIA [id number] [place] [address] [place] ALLIED HEALTHon 06-21-2021 ALLIED HEALTH Normal [facility] Basic metabolic 2000 panelon 06-21-2021 Anion gap [Moles/Vol] 8 mmol/L Low 9-18 [facility] Comment on above: Order Comment: Speci men Type: BLOOD SPECIMENOrdering Facility: [facility] Address: [address] [place] [address] Performed By: #### 2 4320-2, ####[facility] LABORATORYCLIA [id number] [place] [address] [place] Calcium [Mass/Vol] 8.2 mg/dL Low 8.5-10.2 [facility] Comment on above: Order Comment: Speci men Type: BLOOD SPECIMENOrdering Facility: [facility] Address: [address] [place], [place] [address] Performed By: #### 2 4320-06, ####[facility] LABORATORYCLIA [id number] [place] [address] [place] Chloride [Moles/Vol] 108 mmol/L High 97-105 [facility] Comment on above: Order Comment: Speci men Type: BLOOD SPECIMENOrdering Facility: [facility] Address: [address] [place] [address] Performed By: #### 2 4320-06, ####[facility]ORATORYCLIA [id number] [place] [address] [place] CO2 [Moles/Vol] 24 mmol/L Normal 22-30 [facility] Comment on above: Order Comment: Speci men Type: BLOOD SPECIMENOrdering Facility: [facility] Address: [address] [place] [address] Performed By: #### 2 4320-06, ####[facility] LABORATORYCLIA [id number] [place] [address] [place] Creatinine [Mass/Vol] 0.61 mg/dL Low 0.73-1.22 [facility] Comment on above: Order Comment: Speci men Type: BLOOD SPECIMENOrdering Facility: [facility] Address: [address] [place], [place] [address] Performed By: #### 2 2, ####[facility]ORATORYCLIA [id number] [place] [address] [place] GFR/1.73 sq M.predicted MDRD (S/P/Bld) [Vol rate/Area] mL/min/{1.73_m2} Normal [facility] Comment on above: Order Comment: Shira feldman Type: BLOOD SPECIMENOrdering Facility: [facility] Address: [address] [place] [address] Result Comment: >60e GFR (Estimated GFR) Units [...] actual GFR. Performed By: #### 2 4321-2, 04340-4 ####[facility]ORATORYCLIA [id number] [place] [id number] [place] Glucose [Mass/Vol] 211 mg/dL High 74-99 [facility] Comment on above: Order Comment: Shira francia Type: BLOOD SPECIMENOrdering Facility: [facility] Address: [address] [phone] Result Comment: The [place] [employer] (ADA) provides guidance for cutoff [...] Standards of Medical Care in Diabetes 2016, [place] [employer]. Diabetes Care. 2016.39(Suppl 1). Performed By: #### 2 4321-2, 70552-7 ####[facility] LABORATORYCLIA [id number] [place] [address] [place] Potassium [Moles/Vol] 4.3 mmol/L Normal 3.7-5.1 [facility] Comment on above: Order Comment: Speci men Type: BLOOD SPECIMENOrdering Facility: [facility] Address: [address] [place] [address] Performed By: #### 2 4321-2, ####[facility] LABORATORYCLIA [id number] [address] [place] Sodium [Moles/Vol] 140 mmol/L Normal 136-144 [facility] Comment on above: Order Comment: Speci men Type: BLOOD SPECIMENOrdering Facility: [facility] Address: [address] [place] [address] Performed By: #### 2 4321-2, ####[facility]ORATORYCLIA [id number] [address] [place] Urea nitrogen [Mass/Vol] 26 mg/dL High 9-24 [facility] Comment on above: Order Comment: Speci men Type: BLOOD SPECIMENOrdering Facility: [facility] Address: [address] [place] [address] Performed By: #### 2 432-2, ####[facility] LABORATORYCLIA [id number] [address] STATES OF [facility] CBC panel Auto (Bld)on 06-21 Erythrocyte distribution width (RBC) [Ratio] 16.1 % High 11.5-15.0 [facility] Comment on above: Order Comment: Speci men Type: BLOOD SPECIMENOrdering Facility: [facility] Address: [address] [place] [address] Performed By: #### 5 8410-2 ####[facility] LABORATORYCLIA [id number] [address] STATES [facility] Hematocrit (Bld) [Volume fraction] 29.7 % Low 39.0-51.0 [facility] Comment on above: Order Comment: Speci men Type: BLOOD SPECIMENOrdering Facility: [facility] Address: [address] [address] Performed By: #### 5 8410-2 ####[facility] LABORATORYCLIA [id number] [address] STATES OF [facility] Hemoglobin (Bld) [Mass/Vol] 9.2 g/dL Low 13.0-17.0 [facility] Comment on above: Order Comment: Speci men Type: BLOOD SPECIMENOrdering Facility: [facility] Address: [address] [place] [address] Performed By: #### 5 8410-2 ####[facility]ORATORYCLIA [id number] [address] [place] [facility] MCH (RBC) [Entitic mass] 28.8 pg Normal 26.0-34.0 [facility] Comment on above: Order Comment: Speci men Type: BLOOD SPECIMENOrdering Facility: [facility] Address: [address] [place] [address] Performed By: #### 5 8410-2 ####[facility] LABORATORYCLIA [id number] [address] [place] [facility] MCHC (RBC) [Mass/Vol] 31.0 g/dL Normal 30.5-36.0 [facility] Comment on above: Order Comment: Speci men Type: BLOOD SPECIMENOrdering Facility: [facility] Address: [address] [place] [address] Performed By: #### 5 8410-2 ####[facility]ORATORYCLIA [id number] [address] MCV (RBC) [Entitic vol] 93.1 fL Normal 80.0-100.0 [facility] Comment on above: Order Comment: Speci men Type: BLOOD SPECIMENOrdering Facility: [facility] Address: [address] [place] [address] Performed By: #### 5 8410-2 ####[facility] LABORATORYCLIA [id number] [address] Nucleated RBC (Bld) [#/Vol] 10*3/uL Normal <0.01 [facility] Comment on above: Order Comment: Speci men Type: BLOOD SPECIMENOrdering Facility: [facility] Address: [address] [place] [address] Performed By: #### 5 8410-2 ####[facility]ORATORYCLIA [id number] [place] [address] [place] Platelet mean volume (Bld) [Entitic vol] 11.6 fL Normal 9.0-12.7 [facility] Comment on above: Order Comment: Speci men Type: BLOOD SPECIMENOrdering Facility: [facility] Address: [address] [place] [address] Performed By: #### 5 8410-2 ####[facility]ORATORYCLIA [id number] [address] [place] Platelets (Bld) [#/Vol] 347 10*3/uL Normal 150-400 [facility] Comment on above: Order Comment: Speci men Type: BLOOD SPECIMENOrdering Facility: [facility] Address: [address] [place] [address] Performed By: #### 5 8410-2 ####[facility]ORATORYCLIA [id number] [place] [address] [place] RBC (Bld) [#/Vol] 3.19 10*6/uL Low 4.20-6.00 [facility] Comment on above: Order Comment: Speci men Type: BLOOD SPECIMENOrdering Facility: [facility] Address: [address] Performed By: #### 5 8410-2 ####[facility] LABORATORYCLIA [id number] [address] [place] WBC (Bld) [#/Vol] 10.29 10*3/uL Normal 3.70-11.00 [facility] Comment on above: Order Comment: Speci men Type: BLOOD SPECIMENOrdering Facility: [facility] Address: [address] [place] [address] Performed By: #### 5 8410-2 ####[facility] LABORATORYCLIA [id number] [address] CONSULT PROGon 06-21-2021 CONSULT PROG Normal [facility] CONSULT PROG Normal [facility] Magnesium SerPl-mCncon 06-21 Magnesium [Mass/Vol] 2.5 mg/dL High 1.7-2.3 [facility] Comment on above: Order Comment: Speci men Type: BLOOD SPECIMENOrdering Facility: [facility] Address: [address] [place] [address] Performed By: #### 2 4321-2, 59574-2 ####[facility] LABORATORYCLIA [id number] [address] OF [facility] NUTRITIONon 06-21-2021 NUTRITION Normal [facility] XR CHEST 1V FRONTALon 2021 XR CHEST 1V FRONTAL Normal [facility] aPTT PPPon 06-21-2021 aPTT Coag (PPP) [Time] 68.5 s High 23.0-32.4 [facility] Comment on above: Order Comment: Speci men Type: BLOOD SPECIMENOrdering Facility: [facility] Address: [address] [place] [address] Performed By: #### 1 4979-9 ####[facility] LABORATORYCLIA [id number] [address] aPTT Coag (PPP) [Time] 57.8 s High 23.0-32.4 [facility] Comment on above: Order Comment: Speci men Type: BLOOD SPECIMENOrdering Facility: [facility] Address: [address] [place] [address] Performed By: #### 1 4979-9 ####[facility]ORATORYCLIA [id number] [address] [place] Basic metabolic 2000 panelon 06-20-2021 Anion gap [Moles/Vol] 9 mmol/L Normal 9-18 [facility] Comment on above: Order Comment: Speci men Type: BLOOD SPECIMENOrdering Facility: [facility] Address: [address] [address] Performed By: #### 2 4320-2, ####[facility]ATORYCLIA [id number] [place] [address] [place] Calcium [Mass/Vol] 8.3 mg/dL Low 8.5-10.2 [facility] Comment on above: Order Comment: Speci men Type: BLOOD SPECIMENOrdering Facility: [facility] Address: [address] [place] [address] Performed By: #### 2 2, ####[facility]ORATORYCLIA [id number] [place] [address] [place] Chloride [Moles/Vol] 111 mmol/L High 97-105 [facility] Comment on above: Order Comment: Speci men Type: BLOOD SPECIMENOrdering Facility: [facility] Address: [address] [place] [address] Performed By: #### 2 4320-06, ####[facility]ORATORYCLIA [id number] [place] [address] [place] CO2 [Moles/Vol] 24 mmol/L Normal 22-30 [facility] Comment on above: Order Comment: Speci men Type: BLOOD SPECIMENOrdering Facility: [facility] Address: [address] [place] [address] Performed By: #### 2 2, ####[facility]ORATORYCLIA [id number] [place] [address] [place] Creatinine [Mass/Vol] 0.64 mg/dL Low 0.73-1.22 [facility] Comment on above: Order Comment: Speci men Type: BLOOD SPECIMENOrdering Facility: [facility] Address: [address] [place] [address] Performed By: #### 2 4320-2, ####[facility]ORATORYCLIA [id number] [place] [address] [place] GFR/1.73 sq M.predicted MDRD (S/P/Bld) [Vol rate/Area] mL/min/{1.73_m2} Normal [facility] Comment on above: Order Comment: Shira feldman Type: BLOOD SPECIMENOrdering Facility: [facility] Address: [address] [place] [address] Result Comment: >60e GFR (Estimated GFR) Units [...] actual GFR. Performed By: #### 2 4321-2, 48548-1 ####[facility] LABORATORYCLIA [id number] [place] [address] [place] Glucose [Mass/Vol] 114 mg/dL High 74-99 [facility] Comment on above: Order Comment: Johncara feldman Type: BLOOD SPECIMENOrdering Facility: [facility] Address: [address] [place] [address] Result Comment: The [place] [employer] (ADA) provides guidance for cutoff [...] Standards of Medical Care in Diabetes 2016, [place] [employer]. Diabetes Care. 2016.39(Suppl 1). Performed By: #### 2 4321-2, ####[facility] LABORATORYCLIA [id number] [address] [place] Potassium [Moles/Vol] 4.1 mmol/L Normal 3.7-5.1 [facility] Comment on above: Order Comment: Speci men Type: BLOOD SPECIMENOrdering Facility: [facility] Address: [address] [place] [address] Performed By: #### 2 4321-2, ####[facility] LABORATORYCLIA [id number] [address] STATES OF [facility] Sodium [Moles/Vol] 144 mmol/L Normal 136-144 [facility] Comment on above: Order Comment: Speci men Type: BLOOD SPECIMENOrdering Facility: [facility] Address: [address] [place] [address] Performed By: #### 2 4322, ####[facility] LABORATORYCLIA [id number] [address] Urea nitrogen [Mass/Vol] 27 mg/dL High 9-24 [facility] Comment on above: Order Comment: Speci men Type: BLOOD SPECIMENOrdering Facility: [facility] Address: [address] [place] [address] Performed By: #### 2 4322, ####[facility] LABORATORYCLIA [id number] [address] OF [facility] CASE MANAGEMon 06-20-2021 CASE MANAGEM Normal [facility] CBC panel Auto (Bld)on 06-20 Erythrocyte distribution width (RBC) [Ratio] 15.9 % High 11.5-15.0 [facility] Comment on above: Order Comment: Speci men Type: BLOOD SPECIMENOrdering Facility: [facility] Address: [address] [place] [address] Performed By: #### 5 8410-2 ####[facility] LABORATORYCLIA [id number] [address] STATES OF [facility] Hematocrit (Bld) [Volume fraction] 31.0 % Low 39.0-51.0 [facility] Comment on above: Order Comment: Speci men Type: BLOOD SPECIMENOrdering Facility: [facility] Address: [address] [place] [address] Performed By: #### 5 8410-2 ####[facility]ORATORYCLIA [id number] [address] OF [facility] Hemoglobin (Bld) [Mass/Vol] 9.2 g/dL Low 13.0-17.0 [facility] Comment on above: Order Comment: Speci men Type: BLOOD SPECIMENOrdering Facility: [facility] Address: [address] [place] [address] Performed By: #### 5 8410-2 ####[facility] LABORATORYCLIA [id number] [address] STATES OF [facility] MCH (RBC) [Entitic mass] 27.4 pg Normal 26.0-34.0 [facility] Comment on above: Order Comment: Speci men Type: BLOOD SPECIMENOrdering Facility: [facility] Address: [address] [place] [address] Performed By: #### 5 8410-2 ####[facility] LABORATORYCLIA [id number] [address] STATES OF [facility] MCHC (RBC) [Mass/Vol] 29.7 g/dL Low 30.5-36.0 [facility] Comment on above: Order Comment: Speci men Type: BLOOD SPECIMENOrdering Facility: [facility] Address: [address] [place] [address] Performed By: #### 5 8410-2 ####[facility] LABORATORYCLIA [id number] [address] MCV (RBC) [Entitic vol] 92.3 fL Normal 80.0-100.0 [facility] Comment on above: Order Comment: Speci men Type: BLOOD SPECIMENOrdering Facility: [facility] Address: [address] [place] [address] Performed By: #### 5 8410-2 ####[facility] LABORATORYCLIA [id number] [address] Nucleated RBC (Bld) [#/Vol] 10*3/uL Normal <0.01 [facility] Comment on above: Order Comment: Speci men Type: BLOOD SPECIMENOrdering Facility: [facility] Address: [address] [place] [address] Performed By: #### 5 8410-2 ####[facility] LABORATORYCLIA [id number] [address] [place] Platelet mean volume (Bld) [Entitic vol] 11.5 fL Normal 9.0-12.7 [facility] Comment on above: Order Comment: Speci men Type: BLOOD SPECIMENOrdering Facility: [facility] Address: [address] [place] [address] Performed By: #### 5 8410-2 ####[facility] LABORATORYCLIA [id number] [address] Platelets (Bld) [#/Vol] 343 10*3/uL Normal 150-400 [facility] Comment on above: Order Comment: Speci men Type: BLOOD SPECIMENOrdering Facility: [facility] Address: [address] [place] [address] Performed By: #### 5 8410-2 ####[facility] [facility]ATORYCLIA [id number] [address] RBC (Bld) [#/Vol] 3.36 10*6/uL Low 4.20-6.00 [facility] Comment on above: Order Comment: Speci men Type: BLOOD SPECIMENOrdering Facility: [facility] Address: [address] [place] [address] Performed By: #### 5 8410-2 ####[facility]ORATORYCLIA [id number] [address] OF [place] WBC (Bld) [#/Vol] 10.71 10*3/uL Normal 3.70-11.00 [facility] Comment on above: Order Comment: Speci men Type: BLOOD SPECIMENOrdering Facility: [facility] Address: [address] [place] [address] Performed By: #### 5 8410-2 ####[facility]ORATORYCLIA [id number] [address] CONSULT PROGon 06-20-2021 CONSULT PROG Normal [facility] HEMOGLOBIN (HGB)on Hemoglobin (Bld) [Mass/Vol] 9.7 g/dL Low 13.0-17.0 [facility] Comment on above: Order Comment: Speci men Type: BLOOD SPECIMENOrdering Facility: [facility] Address: [address] [place] [address] Performed By: #### H GB ####[facility]ORATORYCLIA [id number] [address] Magnesium SerPl-mCncon 06-20 Magnesium [Mass/Vol] 2.5 mg/dL High 1.7-2.3 [facility] Comment on above: Order Comment: Speci men Type: BLOOD SPECIMENOrdering Facility: [facility] Address: [address] [place] [address] Performed By: #### 2 4321-2, 08875-0 ####[facility]ORATORYCLIA [id number] [address] OF [facility] NURSING PROGon 06-20-2021 NURSING PROG Normal [facility] THERAPY NTon 06-20-2021 THERAPY NT Normal [facility] aPTT PPPon 06-20-2021 aPTT Coag (PPP) [Time] 93.5 s High 23.0-32.4 [facility] Comment on above: Order Comment: Speci men Type: BLOOD SPECIMENOrdering Facility: [facility] Address: [address] [place] [address] Performed By: #### 1 4979-9 ####[facility]ATORYCLIA [id number] [place] [address] [place] aPTT Coag (PPP) [Time] 47.1 s High 23.0-32.4 [facility] Comment on above: Order Comment: Speci men Type: BLOOD SPECIMENOrdering Facility: [facility] Address: [address] [place] [address] Performed By: #### 1 4979-9 ####[facility]ATORYCLIA [id number] [place] [address] [place] Basic metabolic 2000 panelon 06-19-2021 Anion gap [Moles/Vol] 7 mmol/L Low 9-18 [facility] Comment on above: Order Comment: Speci men Type: BLOOD SPECIMENOrdering Facility: [facility] Address: [address] [place] [address] Performed By: #### 2 4321-2 ####[facility]ATORYCLIA [id number] [place] [address] [place] Calcium [Mass/Vol] 8.1 mg/dL Low 8.5-10.2 [facility] Comment on above: Order Comment: Speci men Type: BLOOD SPECIMENOrdering Facility: [facility] Address: [address] [place] [address] Performed By: #### 2 4321-2 ####[facility]ATORYCLIA [id number] [place] [address] [place] Chloride [Moles/Vol] 111 mmol/L High 97-105 [facility] Comment on above: Order Comment: Speci men Type: BLOOD SPECIMENOrdering Facility: [facility] Address: [address] [place] [address] Performed By: #### 2 4321-2 ####[facility]ORATORYCLIA [id number] [address] STATES [place] CO2 [Moles/Vol] 24 mmol/L Normal 22-30 [facility] Comment on above: Order Comment: Speci men Type: BLOOD SPECIMENOrdering Facility: [facility] Address: [facility] [place] [address] Performed By: #### 2 4321-2 ####[facility]ORATORYCLIA [id number] [address] [place] Creatinine [Mass/Vol] 0.71 mg/dL Low 0.73-1.22 [facility] Comment on above: Order Comment: Johni men Type: BLOOD SPECIMENOrdering Facility: [facility] Address: [address] [place] [address] Performed By: #### 2 4321-2 ####[facility]ATORYCLIA [id number] [address] [place] GFR/1.73 sq M.predicted MDRD (S/P/Bld) [Vol rate/Area] mL/min/{1.73_m2} Normal [facility] Comment on above: Order Comment: Shira feldman Type: BLOOD SPECIMENOrdering Facility: [facility] Address: [address] [place] [address] Result Comment: >60e GFR (Estimated GFR) Units [...] actual GFR. Performed By: #### 2 4321-2 ####[facility]ATORYCLIA [id number] [address] [place] Glucose [Mass/Vol] 110 mg/dL High 74-99 [facility] Comment on above: Order Comment: Shira feldman Type: BLOOD SPECIMENOrdering Facility: [facility] Address: [address] [place] [address] Result Comment: The [place] [employer] (ADA) provides guidance for cutoff [...] Standards of Medical Care in Diabetes 2016, [place] [employer]. Diabetes Care. 2016.39(Suppl 1). Performed By: #### 2 4321-2 ####[facility]ORATORYCLIA [id number] [address] STATES OF [facility] Potassium [Moles/Vol] 3.7 mmol/L Normal 3.7-5.1 [facility] Comment on above: Order Comment: Shira feldman Type: BLOOD SPECIMENOrdering Facility: [facility] Address: [address] [place] [address] Performed By: #### 2 4321-2 ####[facility]ORATORYCLIA [id number] [address] STATES OF [facility] Sodium [Moles/Vol] 142 mmol/L Normal 136-144 [facility] Comment on above: Order Comment: Shira feldman Type: BLOOD SPECIMENOrdering Facility: [facility] Address: [address] [place] [address] Performed By: #### 2 4321-2 ####[facility]ORATORYCLIA [id number] [address] STATES [facility] Urea nitrogen [Mass/Vol] 26 mg/dL High 9-24 [facility] Comment on above: Order Comment: Shira feldman Type: BLOOD SPECIMENOrdering Facility: [facility] Address: [address] [place] [address] Performed By: #### 2 4321-2 ####[facility]ATORYCLIA [id number] [address] [place] CBC panel Auto (Bld)on 06-19 Erythrocyte distribution width (RBC) [Ratio] 15.7 % High 11.5-15.0 [facility] Comment on above: Order Comment: Speci men Type: BLOOD SPECIMENOrdering Facility: [facility] Address: [address] [place] [address] Performed By: #### 5 8410-2 ####[facility]ATORYCLIA [id number] [address] Hematocrit (Bld) [Volume fraction] 30.9 % Low 39.0-51.0 [facility] Comment on above: Order Comment: Speci men Type: BLOOD SPECIMENOrdering Facility: [facility] Address: [address] [place] [address] Performed By: #### 5 8410-2 ####[facility]ATORYCLIA [id number] [address] [place] Hemoglobin (Bld) [Mass/Vol] 9.5 g/dL Low 13.0-17.0 [facility] Comment on above: Order Comment: Speci men Type: BLOOD SPECIMENOrdering Facility: [facility] Address: [address] [place] [address] Performed By: #### 5 8410-2 ####[facility]ATORYCLIA [id number] [address] [place] MCH (RBC) [Entitic mass] 28.4 pg Normal 26.0-34.0 [facility] Comment on above: Order Comment: Speci men Type: BLOOD SPECIMENOrdering Facility: [facility] Address: [address] [place] [address] Performed By: #### 5 8410-2 ####[facility]ATORYCLIA [id number] [address] MCHC (RBC) [Mass/Vol] 30.7 g/dL Normal 30.5-36.0 [facility] Comment on above: Order Comment: Speci men Type: BLOOD SPECIMENOrdering Facility: [facility] Address: [address] [place] [address] Performed By: #### 5 8410-2 ####[facility]ATORYCLIA [id number] [address] MCV (RBC) [Entitic vol] 92.2 fL Normal 80.0-100.0 [facility] Comment on above: Order Comment: Speci men Type: BLOOD SPECIMENOrdering Facility: [facility] Address: [address] [place] [address] Performed By: #### 5 8410-2 ####[facility]ATORYCLIA [id number] [address] Nucleated RBC (Bld) [#/Vol] 10*3/uL Normal <0.01 [facility] Comment on above: Order Comment: Speci men Type: BLOOD SPECIMENOrdering Facility: [facility] Address: [address] [place] [address] Performed By: #### 5 8410-2 ####[facility]ATORYCLIA [id number] [address] Platelet mean volume (Bld) [Entitic vol] 11.7 fL Normal 9.0-12.7 [facility] Comment on above: Order Comment: Speci men Type: BLOOD SPECIMENOrdering Facility: [facility] Address: [address] [place] [address] Performed By: #### 5 8410-2 ####[facility]ATORYCLIA [id number] [address] Platelets (Bld) [#/Vol] 323 10*3/uL Normal 150-400 [facility] Comment on above: Order Comment: Speci men Type: BLOOD SPECIMENOrdering Facility: [facility] Address: [address] [place] [address] Performed By: #### 5 8410-2 ####[facility]ORYCLIA [id number] [address] [place] RBC (Bld) [#/Vol] 3.35 10*6/uL Low 4.20-6.00 [facility] Comment on above: Order Comment: Speci men Type: BLOOD SPECIMENOrdering Facility: [facility] Address: [address] [place] [address] Performed By: #### 5 8410-2 ####[facility]ATORYCLIA [id number] [address] [place] WBC (Bld) [#/Vol] 9.53 10*3/uL Normal 3.70-11.00 [facility] Comment on above: Order Comment: Speci men Type: BLOOD SPECIMENOrdering Facility: [facility] Address: [address] [place] [address] Performed By: #### 5 8410-2 ####[facility]ATORYCLIA [id number] [address] OF [facility] HEMOGLOBIN (HGB)on Hemoglobin (Bld) [Mass/Vol] 9.7 g/dL Low 13.0-17.0 [facility] Comment on above: Order Comment: Speci men Type: BLOOD SPECIMENOrdering Facility: [facility] Address: [address] [place] [address] Performed By: #### H GB ####[facility]ATORYCLIA [id number] [address] [place] Magnesium SerPl-mCncon 06-19 Magnesium [Mass/Vol] 2.5 mg/dL High 1.7-2.3 [facility] Comment on above: Order Comment: Speci men Type: BLOOD SPECIMENOrdering Facility: [facility] Address: [address] [place] [address] Performed By: #### 1 9123-9, 2777-1 ####[facility]ORYCLIA [id number] [address] [place] NURSING PROGon 06-19-2021 NURSING PROG Normal [facility] Phosphate SerPl-mCncon 06-19 Phosphate [Mass/Vol] 2.6 mg/dL Low 2.7-4.8 [facility] Comment on above: Order Comment: Speci men Type: BLOOD SPECIMENOrdering Facility: [facility] Address: [address] [place] [address] Performed By: #### 1 9123-9, 2777-1 ####[facility]ATORYCLIA [id number] [address] [place] aPTT PPPon 06-19-2021 aPTT Coag (PPP) [Time] 61.9 s High 23.0-32.4 [facility] Comment on above: Order Comment: Speci men Type: BLOOD SPECIMENOrdering Facility: [facility] Address: [address] [place] [address] Performed By: #### 1 4979-9 ####[facility]ATORYCLIA [id number] [address] aPTT Coag (PPP) [Time] 68.6 s High 23.0-32.4 [facility] Comment on above: Order Comment: Speci men Type: BLOOD SPECIMENOrdering Facility: [facility] Address: [address] [place] [address] Performed By: #### 1 4979-9 ####[facility]ATORYCLIA [id number] [address] aPTT Coag (PPP) [Time] 83.2 s High 23.0-32.4 [facility] Comment on above: Order Comment: Speci men Type: BLOOD SPECIMENOrdering Facility: [facility] Address: [address] [place] [address] Performed By: #### 1 4979-9 ####[facility]ORATORYCLIA [id number] [place] [address] [facility] [place] Basic metabolic 2000 panelon 06-18-2021 Anion gap [Moles/Vol] 7 mmol/L Low 9-18 [facility] Comment on above: Order Comment: Speci men Type: BLOOD SPECIMENOrdering Facility: [facility] Address: [address] [place] [address] Performed By: #### 2 4321-2, , 2776-05 ####[facility]ATORYCLIA [id number] [place] [address] [place] Calcium [Mass/Vol] 8.2 mg/dL Low 8.5-10.2 [facility] Comment on above: Order Comment: Speci men Type: BLOOD SPECIMENOrdering Facility: [facility] Address: [address] [place] [address] Performed By: #### 2 4321-2, , 2776-05 ####[facility]ORATORYCLIA [id number] [place] [address] [place] Chloride [Moles/Vol] 115 mmol/L High 97-105 [facility] Comment on above: Order Comment: Speci men Type: BLOOD SPECIMENOrdering Facility: [facility] Address: [address] [place] [address] Performed By: #### 2 1-2, , 2776-05 ####[facility]ATORYCLIA [id number] [place] [address] [place] CO2 [Moles/Vol] 23 mmol/L Normal 22-30 [facility] Comment on above: Order Comment: Speci men Type: BLOOD SPECIMENOrdering Facility: [facility] Address: [address] [place] [address] Performed By: #### 2 4321-2, , 2776-05 ####[facility]ATORYCLIA [id number] [place] [address] [place] Creatinine [Mass/Vol] 0.70 mg/dL Low 0.73-1.22 [facility] Comment on above: Order Comment: Speci men Type: BLOOD SPECIMENOrdering Facility: [facility] Address: [address] [place] [address] Performed By: #### 2 4321-2, , 2776-05 ####[facility]ORATORYCLIA [id number] [place] [address] [place] GFR/1.73 sq M.predicted MDRD (S/P/Bld) [Vol rate/Area] mL/min/{1.73_m2} Normal [facility] Comment on above: Order Comment: Shira feldman Type: BLOOD SPECIMENOrdering Facility: [facility] Address: [address] [place] [address] Result Comment: >60e GFR (Estimated GFR) Units [...] actual GFR. Performed By: #### 2 4321-2, 43549-9, 2777-1 ####[facility]ATORYCLIA [id number] [place] [address] [place] Glucose [Mass/Vol] 105 mg/dL High 74-99 [facility] Comment on above: Order Comment: Shira feldman Type: BLOOD SPECIMENOrdering Facility: [facility] Address: [address] [place] [address] Result Comment: The [place] [employer] (ADA) provides guidance for cutoff [...] Standards of Medical Care in Diabetes 2016, [place] [employer]. Diabetes Care. 2016.39(Suppl 1). Performed By: #### 2 4321-2, , 2776-05 ####[facility]ATORYCLIA [id number] [place] [address] [place] Potassium [Moles/Vol] 4.1 mmol/L Normal 3.7-5.1 [facility] Comment on above: Order Comment: Speci men Type: BLOOD SPECIMENOrdering Facility: [facility] Address: [address] [place] [address] Performed By: #### 2 4321-2, , 2776-05 ####[facility]ATORYCLIA [id number] [place] [address] [place] Sodium [Moles/Vol] 145 mmol/L High 136-144 [facility] Comment on above: Order Comment: Speci men Type: BLOOD SPECIMENOrdering Facility: [facility] Address: [address] [place] [address] Performed By: #### 2 4320-2, , 2776-05 ####[facility]NACLIA [id number] [address] STATES OF [facility] Urea nitrogen [Mass/Vol] 27 mg/dL High 9-24 [facility] Comment on above: Order Comment: Speci men Type: BLOOD SPECIMENOrdering Facility: [facility] Address: [address] [place] [address] Performed By: #### 2 4321-2, , 2776-05 ####[facility]ORATORYCLIA [id number] [address] [place] CALCIUM IONIZED Bon 06-18-19 22 Calcium.ionized (BldV) [Mass/Vol] 1.22 mmol/L Normal 1.08-1.30 [facility] Comment on above: Order Comment: Speci men Type: BLOOD SPECIMENOrdering Facility: [facility] Address: [address] [place] [address] Performed By: #### I CA ####[facility]ORATORYCLIA [id number] [address] Calcium.ionized adjusted to pH 7.4 (Bld) [Moles/Vol] 1.23 mmol/L Normal 1.08-1.30 [facility] Comment on above: Order Comment: Speci men Type: BLOOD SPECIMENOrdering Facility: [facility] Address: [address] [place] [address] Performed By: #### I CA ####[facility]ORATORYCLIA [id number] [address] CBC panel Auto (Bld)on 06-18 Erythrocyte distribution width (RBC) [Ratio] 15.8 % High 11.5-15.0 [facility] Comment on above: Order Comment: Speci men Type: BLOOD SPECIMENOrdering Facility: [facility] Address: [address] [place] [address] Performed By: #### 5 8410-2 ####[facility]ORATORYCLIA [id number] [address] Hematocrit (Bld) [Volume fraction] 29.5 % Low 39.0-51.0 [facility] Comment on above: Order Comment: Speci men Type: BLOOD SPECIMENOrdering Facility: [facility] Address: [address] [place] [address] Performed By: #### 5 8410-2 ####[facility]ATORYCLIA [id number] [address] Hemoglobin (Bld) [Mass/Vol] 8.8 g/dL Low 13.0-17.0 [facility] Comment on above: Order Comment: Speci men Type: BLOOD SPECIMENOrdering Facility: [facility] Address: [address] [place] [address] Performed By: #### 5 8410-2 ####[facility]ORATORYCLIA [id number] [address] MCH (RBC) [Entitic mass] 27.4 pg Normal 26.0-34.0 [facility] Comment on above: Order Comment: Speci men Type: BLOOD SPECIMENOrdering Facility: [facility] Address: [address] [place] [address] Performed By: #### 5 8410-2 ####[facility]ATORYCLIA [id number] [address] MCHC (RBC) [Mass/Vol] 29.8 g/dL Low 30.5-36.0 [facility] Comment on above: Order Comment: Speci men Type: BLOOD SPECIMENOrdering Facility: [facility] Address: [address] [place] [address] Performed By: #### 5 8410-2 ####[facility]ORATORYCLIA [id number] [address] MCV (RBC) [Entitic vol] 91.9 fL Normal 80.0-100.0 [facility] Comment on above: Order Comment: Speci men Type: BLOOD SPECIMENOrdering Facility: [facility] Address: [address] [place] [address] Performed By: #### 5 8410-2 ####[facility]ORATORYCLIA [id number] [address] Nucleated RBC (Bld) [#/Vol] 10*3/uL Normal <0.01 [facility] Comment on above: Order Comment: Speci men Type: BLOOD SPECIMENOrdering Facility: [facility] Address: [address] [place] [address] Performed By: #### 5 8410-2 ####[facility]ORATORYCLIA [id number] [address] Platelet mean volume (Bld) [Entitic vol] 11.9 fL Normal 9.0-12.7 [facility] Comment on above: Order Comment: Speci men Type: BLOOD SPECIMENOrdering Facility: [facility] Address: [address] [place] [address] Performed By: #### 5 8410-2 ####[facility]ATORYCLIA [id number] [address] Platelets (Bld) [#/Vol] 291 10*3/uL Normal 150-400 [facility] Comment on above: Order Comment: Speci men Type: BLOOD SPECIMENOrdering Facility: [facility] Address: [address] [place] [address] Performed By: #### 5 8410-2 ####[facility]ORATORYCLIA [id number] [place] [address] [place] RBC (Bld) [#/Vol] 3.21 10*6/uL Low 4.20-6.00 [facility] Comment on above: Order Comment: Speci men Type: BLOOD SPECIMENOrdering Facility: [facility] Address: [address] [place] [address] Performed By: #### 5 8410-2 ####[facility]ATORYCLIA [id number] [address] WBC (Bld) [#/Vol] 10.19 10*3/uL Normal 3.70-11.00 [facility] Comment on above: Order Comment: Speci men Type: BLOOD SPECIMENOrdering Facility: [facility] Address: [address] [place] [address] Performed By: #### 5 8410-2 ####[facility]ORATORYCLIA [id number] [address] [place] FERRITIN BLDon 06-18-2021 Ferritin [Mass/Vol] 600.9 ng/mL High 30.3-565.7 [facility] Comment on above: Order Comment: Speci men Type: BLOOD SPECIMENOrdering Facility: [facility] Address: [address] [place] [address] Performed By: #### S ERFOL, IRON, FERR ####[facility]ORATORYCLIA [id number] [address] OF [facility] FOLATE SERUMon 06-18-2021 Folate [Mass/Vol] 14.3 ng/mL Normal >4.7 [facility] Comment on above: Order Comment: Speci men Type: BLOOD SPECIMENOrdering Facility: [facility] Address: [address] [place] [address] Performed By: #### S ERFOL, IRON, FERR ####[facility]ORATORYCLIA [id number] [address] Gas and Carbon monoxide pane l (BldV)on 06-18-2021 Base excess Calc (BldV) [Moles/Vol] 0.5 mmol/L Normal 0-2 [facility] Comment on above: Order Comment: Speci men Type: VENOUS BLOOD SPECIMENOrdering Facility: [facility] Address: [address] [place] [address] Performed By: #### 2 4344-4 ####[facility] LABORATORYCLIA [id number] [address] STATES OF [facility] Body temperature 97.34 [degF] Normal [facility] Comment on above: Order Comment: Speci men Type: VENOUS BLOOD SPECIMENOrdering Facility: [facility] Address: [address] [place] [address] Performed By: #### 2 4344-4 ####[facility] LABORATORYCLIA [id number] [place] [address] [place] CALCIUM IONIZED, PH CORRECTED 1.26 mmol/L Normal 1.08-1.30 [facility] Comment on above: Order Comment: Speci men Type: VENOUS BLOOD SPECIMENOrdering Facility: [facility] Address: [address] [place] [address] Performed By: #### 2 4344-4 ####[facility] LABORATORYCLIA [id number] [address] [place] Calcium.ionized (BldV) [Mass/Vol] 1.25 mmol/L Normal 1.08-1.30 [facility] Comment on above: Order Comment: Speci men Type: VENOUS BLOOD SPECIMENOrdering Facility: [facility] Address: [address] [place] [address] Performed By: #### 2 4344-4 ####[facility] LABORATORYCLIA [id number] [address] [place] Carboxyhemoglobin (BldV) [Mass fraction] 1.5 % Normal 0.0-2.0 [facility] Comment on above: Order Comment: Speci men Type: VENOUS BLOOD SPECIMENOrdering Facility: [facility] Address: [address] [place] [address] Result Comment: Carb oxyhemoglobin Reference Range for Smokers: 2.0-8.0% Performed By: #### 2 4344-4 ####[facility] LABORATORYCLIA [id number] [address] [place] CO2 (BldV) [Partial pressure] 38 mm[Hg] Low 42-55 [facility] Comment on above: Order Comment: Speci men Type: VENOUS BLOOD SPECIMENOrdering Facility: [facility] Address: [address] [place] [address] Performed By: #### 2 4344-4 ####[facility] LABORATORYCLIA [id number] [address] [place] CO2 [Moles/Vol] 22.9 mmol/L Low 25-29 [facility] Comment on above: Order Comment: Speci men Type: VENOUS BLOOD SPECIMENOrdering Facility: [facility] Address: [address] [place] [address] Performed By: #### 2 4344-4 ####[facility] LABORATORYCLIA [id number] [address] [place] CO2 adjusted to patient's actual temperature (BldV) [Partial pressure] 37 mmHg Low 42-55 [facility] Comment on above: Order Comment: Speci men Type: VENOUS BLOOD SPECIMENOrdering Facility: [facility] Address: [address] [place] [address] Performed By: #### 2 4344-4 ####[facility] LABORATORYCLIA [id number] [address] [place] Glucose [Mass/Vol] 103 mg/dL Normal 60-105 [facility] Comment on above: Order Comment: Speci men Type: VENOUS BLOOD SPECIMENOrdering Facility: [facility] Address: [address] [address] Performed By: #### 2 4344-4 ####[facility] LABORATORYCLIA [id number] [address] [place] HCO3 (Bld) [Moles/Vol] 24.4 mmol/L Normal 24-28 [facility] Comment on above: Order Comment: Speci men Type: VENOUS BLOOD SPECIMENOrdering Facility: [facility] Address: [address] [place] [address] Performed By: #### 2 4344-4 ####[facility] LABORATORYCLIA [id number] [address] [place] Hematocrit (Bld) [Volume fraction] 28.7 % Low 39.0-51.0 [facility] Comment on above: Order Comment: Speci men Type: VENOUS BLOOD SPECIMENOrdering Facility: [facility] Address: [address] [address] Performed By: #### 2 4344-4 ####[facility] LABORATORYCLIA [id number] [address] [place] Hemoglobin (Bld) [Mass/Vol] 9.3 g/dL Low 13.0-17.0 [facility] Comment on above: Order Comment: Speci men Type: VENOUS BLOOD SPECIMENOrdering Facility: [facility] Address: [address] [address] Performed By: #### 2 4344-4 ####[facility] LABORATORYCLIA [id number] [address] [place] Methemoglobin (Bld) [Mass fraction] % Normal 0.0-1.5 [facility] Comment on above: Order Comment: Speci men Type: VENOUS BLOOD SPECIMENOrdering Facility: [facility] Address: [address] [address] Performed By: #### 2 4344-4 ####[facility]ORATORYCLIA [id number] [address] [place] O2 THERAPY Ventilator Normal [facility] Comment on above: Order Comment: Speci men Type: VENOUS BLOOD SPECIMENOrdering Facility: [facility] Address: [address] [place] [address] Performed By: #### 2 4344-4 ####[facility] LABORATORYCLIA [id number] [address] [place] Oxygen (BldV) [Partial pressure] 37 mm[Hg] Normal 35-45 [facility] Comment on above: Order Comment: Speci men Type: VENOUS BLOOD SPECIMENOrdering Facility: [facility] Address: [address] [place] [address] Performed By: #### 2 4344-4 ####[facility] LABORATORYCLIA [id number] [address] [place] Oxygen adjusted to patient's actual temperature (BldV) [Partial pressure] 35.1 mmHg Normal 35-45 [facility] Comment on above: Order Comment: Speci men Type: VENOUS BLOOD SPECIMENOrdering Facility: [facility] Address: [address] [place] [address] Performed By: #### 2 4344-4 ####[facility] LABORATORYCLIA [id number] [address] [place] Oxygen saturation in Blood 67.1 % Normal 60-85 [facility] Comment on above: Order Comment: Speci men Type: VENOUS BLOOD SPECIMENOrdering Facility: [facility] Address: [address] [place] [address] Performed By: #### 2 4344-4 ####[facility] LABORATORYCLIA [id number] [address] [place] Oxyhemoglobin (BldV) [Mass fraction] 66 % Normal 60-85 [facility] Comment on above: Order Comment: Speci men Type: VENOUS BLOOD SPECIMENOrdering Facility: [facility] Address: [address] [place] [address] Performed By: #### 2 4344-4 ####[facility] LABORATORYCLIA [id number] [place] [address] [place] pH (BldV) 7.42 [pH] Normal 7.32-7.42 [facility] Comment on above: Order Comment: Speci men Type: VENOUS BLOOD SPECIMENOrdering Facility: [facility] Address: [address] [place] [address] Performed By: #### 2 4344-4 ####[facility] LABORATORYCLIA [id number] [address] pH adjusted to patient's actual temperature (BldV) 7.43 High 7.32-7.42 [facility] Comment on above: Order Comment: Speci men Type: VENOUS BLOOD SPECIMENOrdering Facility: [facility] Address: [address] [place] [address] Performed By: #### 2 4344-4 ####[facility] LABORATORYCLIA [id number] [address] STATES OF [facility] Potassium [Moles/Vol] 4.0 mmol/L Normal 3.5-5.0 [facility] Comment on above: Order Comment: Speci men Type: VENOUS BLOOD SPECIMENOrdering Facility: [facility] Address: [address] [place] [address] Performed By: #### 2 4344-4 ####[facility] LABORATORYCLIA [id number] [address] [place] Sodium [Moles/Vol] 146 mmol/L High 136-144 [facility] Comment on above: Order Comment: Speci men Type: VENOUS BLOOD SPECIMENOrdering Facility: [facility] Address: [address] [place] [address] Performed By: #### 2 4344-4 ####[facility]ORATORYCLIA [id number] [address] [place] HEMOGLOBIN (HGB)on 2 Hemoglobin (Bld) [Mass/Vol] 9.2 g/dL Low 13.0-17.0 [facility] Comment on above: Order Comment: Speci men Type: BLOOD SPECIMENOrdering Facility: [facility] Address: [address] [place] [address] Performed By: #### H GB ####[facility] LABORATORYCLIA [id number] [place] [address] [place] IRON + TIBCon 06-18-2021 Iron [Mass/Vol] 27 ug/dL Low 41-186 [facility] Comment on above: Order Comment: Speci men Type: BLOOD SPECIMENOrdering Facility: [facility] Address: [address] [place] [address] Performed By: #### S ERFOL, IRON, FERR ####[facility] LABORATORYCLIA [id number] [address] [place] Iron binding capacity [Mass/Vol] 141 ug/dL Low 232-386 [facility] Comment on above: Order Comment: Speci men Type: BLOOD SPECIMENOrdering Facility: [facility] Address: [address] [place] [address] Performed By: #### S ERFOL, IRON, FERR ####[facility] LABORATORYCLIA [id number] [address] [place] Iron saturation [Mass fraction] 19 % Normal 15-57 [facility] Comment on above: Order Comment: Speci men Type: BLOOD SPECIMENOrdering Facility: [facility] Address: [address] [place] [address] Performed By: #### S ERFOL, IRON, FERR ####[facility] LABORATORYCLIA [id number] [place] [address] [place] Magnesium SerPl-mCncon 06-18 Magnesium [Mass/Vol] 2.5 mg/dL High 1.7-2.3 [facility] Comment on above: Order Comment: Speci men Type: BLOOD SPECIMENOrdering Facility: [facility] Address: [address] [place] [address] Performed By: #### 2 4321-2, 06881-3, 2777 ####[facility] LABORATORYCLIA [id number] [place], [place] [address] [place] [address] NURSING PROGon 06-18-2021 NURSING PROG Normal [facility] Phosphate SerPl-mCncon 06-18 Phosphate [Mass/Vol] 3.0 mg/dL Normal 2.7-4.8 [facility] Comment on above: Order Comment: Speci men Type: BLOOD SPECIMENOrdering Facility: [facility] Address: [address] [place] [address] Performed By: #### 2 4321-2, 47117-8, 2777 ####[facility] LABORATORYCLIA [id number] [address] THERAPY NTon 06-18-2021 THERAPY NT Normal [facility] aPTT PPPon 06-18-2021 aPTT Coag (PPP) [Time] 43.0 s High 23.0-32.4 [facility] Comment on above: Order Comment: Speci men Type: BLOOD SPECIMENOrdering Facility: [facility] Address: [address] [place] [address] Performed By: #### 1 4979-9 ####[facility] LABORATORYCLIA [id number] [address] aPTT Coag (PPP) [Time] 60.6 s High 23.0-32.4 [facility] Comment on above: Order Comment: Speci men Type: BLOOD SPECIMENOrdering Facility: [facility] Address: [address] [place] [address] Performed By: #### 1 4979-9 ####[facility] LABORATORYCLIA [id number] [address] aPTT Coag (PPP) [Time] 46.4 s High 23.0-32.4 [facility] Comment on above: Order Comment: Speci men Type: BLOOD SPECIMENOrdering Facility: [facility] Address: [address] [place] [address] Performed By: #### 1 4979-9 ####[facility] LABORATORYCLIA [id number] [place] [address] [place] Basic metabolic 2000 panelon 06-17-2021 Anion gap [Moles/Vol] 7 mmol/L Low 9-18 [facility] Comment on above: Order Comment: Speci men Type: BLOOD SPECIMENOrdering Facility: [facility] Address: [address] [place] [address] Performed By: #### 2 951-2, , 2776-05, 62822-8 ####[facility]ORATORYCLIA [id number] [place] [address] [place] Calcium [Mass/Vol] 8.1 mg/dL Low 8.5-10.2 [facility] Comment on above: Order Comment: Speci men Type: BLOOD SPECIMENOrdering Facility: [facility] Address: [address] [place] [address] Performed By: #### 2 951-2, , 2776-05, 80374-2 ####[facility] LABORATORYCLIA [id number] [place] [address] [place] Chloride [Moles/Vol] 113 mmol/L High 97-105 [facility] Comment on above: Order Comment: Speci men Type: BLOOD SPECIMENOrdering Facility: [facility] Address: [address] [place] [address] Performed By: #### 2 951-2, , 2776-05, 83622-3 ####[facility]ORATORYCLIA [id number] [place] [address] [place] CO2 [Moles/Vol] 25 mmol/L Normal 22-30 [facility] Comment on above: Order Comment: Speci men Type: BLOOD SPECIMENOrdering Facility: [facility] Address: [address] [place], [place] [address] Performed By: #### 2 951-2, , 2776-05, 37320-3 ####[facility] LABORATORYCLIA [id number] [place] [address] [place] Creatinine [Mass/Vol] 0.70 mg/dL Low 0.73-1.22 [facility] Comment on above: Order Comment: Shira men Type: BLOOD SPECIMENOrdering Facility: [facility] Address: [address] [place], [place] [address] Performed By: #### 2 951-2, 04765-0, 2776-, 00159-8 ####[facility] LABORATORYCLIA [id number] [place] [address] [place] GFR/1.73 sq M.predicted MDRD (S/P/Bld) [Vol rate/Area] mL/min/{1.73_m2} Normal [facility] Comment on above: Order Comment: [facility] Type: BLOOD SPECIMENOrdering Facility: [facility] Address: [address] [place] [address] Result Comment: >60e GFR (Estimated GFR) Units [...] actual GFR. Performed By: #### 2 951-2, 38584-9, 2776-, 47194-1 ####[facility] LABORATORYCLIA [id number] [place] [address] [place] Glucose [Mass/Vol] 122 mg/dL High 74-99 [facility] Comment on above: Order Comment: Shira men Type: BLOOD SPECIMENOrdering Facility: [facility] Address: [address] [place], [place] [id number] Result Comment: The [place] [employer] (ADA) provides guidance for cutoff [...] Standards of Medical Care in Diabetes 2016, [place] [employer]. Diabetes Care. 2016.39(Suppl 1). Performed By: #### 2 951-2, 47438-7, 2777-1, 33152-3 ####[facility] LABORATORYCLIA [id number] [place] [address] [place] Potassium [Moles/Vol] 3.5 mmol/L Low 3.7-5.1 [facility] Comment on above: Order Comment: Shira feldman Type: BLOOD SPECIMENOrdering Facility: [facility] Address: [address] [place] [address] Performed By: #### 2 951-2, 73208-0, 2777-1, 08796-1 ####[facility] LABORATORYCLIA [id number] [address] [place] Urea nitrogen [Mass/Vol] 27 mg/dL High 9-24 [facility] Comment on above: Order Comment: Shira feldman Type: BLOOD SPECIMENOrdering Facility: [facility] Address: [address] [place] [address] Performed By: #### 2 951-2, 72609-4, 277-1, 48950-4 ####[facility] LABORATORYCLIA [id number] [place] [id number] [place] CASE MANAGEMon 06-17-2021 CASE MANAGEM Normal [facility] CBC panel Auto (Bld)on 06-17 Erythrocyte distribution width (RBC) [Ratio] 15.9 % High 11.5-15.0 [facility] Comment on above: Order Comment: Shira feldman Type: BLOOD SPECIMENOrdering Facility: [facility] Address: [address] [place] [address] Performed By: #### 5 8410-2 ####[facility] LABORATORYCLIA [id number] [address] Hematocrit (Bld) [Volume fraction] 28.9 % Low 39.0-51.0 [facility] Comment on above: Order Comment: Speci men Type: BLOOD SPECIMENOrdering Facility: [facility] Address: [address] [place] [address] Performed By: #### 5 8410-2 ####[facility] LABORATORYCLIA [id number] [address] Hemoglobin (Bld) [Mass/Vol] 8.8 g/dL Low 13.0-17.0 [facility] Comment on above: Order Comment: Speci men Type: BLOOD SPECIMENOrdering Facility: [facility] Address: [address] [place] [address] Performed By: #### 5 8410-2 ####[facility] LABORATORYCLIA [id number] [address] MCH (RBC) [Entitic mass] 28.4 pg Normal 26.0-34.0 [facility] Comment on above: Order Comment: Speci men Type: BLOOD SPECIMENOrdering Facility: [facility] Address: [address] [place] [address] Performed By: #### 5 8410-2 ####[facility] LABORATORYCLIA [id number] [address] [place] MCHC (RBC) [Mass/Vol] 30.4 g/dL Low 30.5-36.0 [facility] Comment on above: Order Comment: Speci men Type: BLOOD SPECIMENOrdering Facility: [facility] Address: [address] [place] [address] Performed By: #### 5 8410-2 ####[facility] LABORATORYCLIA [id number] [address] MCV (RBC) [Entitic vol] 93.2 fL Normal 80.0-100.0 [facility] Comment on above: Order Comment: Speci men Type: BLOOD SPECIMENOrdering Facility: [facility] Address: [address] [address] Performed By: #### 5 8410-2 ####[facility] LABORATORYCLIA [id number] [address] [place] Nucleated RBC (Bld) [#/Vol] 10*3/uL Normal <0.01 [facility] Comment on above: Order Comment: Speci men Type: BLOOD SPECIMENOrdering Facility: [facility] Address: [address] [place] [address] Performed By: #### 5 8410-2 ####[facility] LABORATORYCLIA [id number] [address] [place] Platelet mean volume (Bld) [Entitic vol] 11.9 fL Normal 9.0-12.7 [facility] Comment on above: Order Comment: Speci men Type: BLOOD SPECIMENOrdering Facility: [facility] Address: [address] [place] [address] Performed By: #### 5 8410-2 ####[facility] LABORATORYCLIA [id number] [address] STATES [facility] Platelets (Bld) [#/Vol] 257 10*3/uL Normal 150-400 [facility] Comment on above: Order Comment: Speci men Type: BLOOD SPECIMENOrdering Facility: [facility] Address: [address] [address] Performed By: #### 5 8410-2 ####[facility] LABORATORYCLIA [id number] [address] [place] RBC (Bld) [#/Vol] 3.10 10*6/uL Low 4.20-6.00 [facility] Comment on above: Order Comment: Speci men Type: BLOOD SPECIMENOrdering Facility: [facility] Address: [address] [place], [place] [address] Performed By: #### 5 8410-2 ####[facility] LABORATORYCLIA [id number] [place] [address] [place] WBC (Bld) [#/Vol] 10.54 10*3/uL Normal 3.70-11.00 [facility] Comment on above: Order Comment: Speci men Type: BLOOD SPECIMENOrdering Facility: [facility] Address: [address] [place] [address] Performed By: #### 5 8410-2 ####[facility] LABORATORYCLIA [id number] [address] [place] HEMOGLOBIN (HGB)on 2 Hemoglobin (Bld) [Mass/Vol] 8.8 g/dL Low 13.0-17.0 [facility] Comment on above: Order Comment: Speci men Type: BLOOD SPECIMENOrdering Facility: [facility] Address: [address] [place] [address] Performed By: #### H GB ####[facility] LABORATORYCLIA [id number] [address] Magnesium SerPl-mCncon 06-17 Magnesium [Mass/Vol] 2.5 mg/dL High 1.7-2.3 [facility] Comment on above: Order Comment: Speci men Type: BLOOD SPECIMENOrdering Facility: [facility] Address: [address] [place] [address] Performed By: #### 2 951-2, 29370-0, 2777-1, 06794-6 ####[facility] LABORATORYCLIA [id number] [address] [place] NURSING PROGon 06-17-2021 NURSING PROG Normal [facility] NURSING PROG Normal [facility] NURSING PROG Normal [facility] Phosphate SerPl-mCncon 06-17 Phosphate [Mass/Vol] 1.9 mg/dL Low 2.7-4.8 [facility] Comment on above: Order Comment: Speci men Type: BLOOD SPECIMENOrdering Facility: [facility] Address: [address] [place] [address] Performed By: #### 2 951-2, 25279-6, 2777-1, 57718-2 ####[facility] LABORATORYCLIA [id number] [address] [place] Sodium SerPl-sCncon 06-17-19 Sodium [Moles/Vol] 144 mmol/L Normal 136-144 [facility] Comment on above: Order Comment: Speci men Type: BLOOD SPECIMENOrdering Facility: [facility] Address: [address] [place] [address] Performed By: #### 2 951-2 ####[facility] [id number] [address] Sodium [Moles/Vol] 145 mmol/L High 136-144 [facility] Comment on above: Order Comment: Speci men Type: BLOOD SPECIMENOrdering Facility: [facility] Address: [address] [place] [address] Performed By: #### 2 951-2, 36833-2, 2777, 43129-9 ####[facility] LABORATORYCLIA [id number] [address] aPTT PPPon 06-17-2021 aPTT Coag (PPP) [Time] 55.8 s High 23.0-32.4 [facility] Comment on above: Order Comment: Speci men Type: BLOOD SPECIMENOrdering Facility: [facility] Address: [address] [place] [address] Performed By: #### 1 4979-9 ####[facility] LABORATORYCLIA [id number] [address] ARTERIAL BLOOD GASESon 06-16 Base excess Calc (Bld) [Moles/Vol] 3 mmol/L High 0-2 [facility] Comment on above: Order Comment: Speci men Type: ARTERIAL BLOOD SPECIMENOrdering Facility: [facility] Address: [address] [place] [address] Performed By: #### A LLBG ####[facility] LABORATORYCLIA [id number] [address] Body temperature 99.14 [degF] Normal [facility] Comment on above: Order Comment: Speci men Type: ARTERIAL BLOOD SPECIMENOrdering Facility: [facility] Address: [address] [place] [address] Performed By: #### A LLBG ####[facility] LABORATORYCLIA [id number] [address] [facility] CALCIUM IONIZED, PH CORRECTED 1.21 mmol/L Normal 1.08-1.30 [facility] Comment on above: Order Comment: Speci men Type: ARTERIAL BLOOD SPECIMENOrdering Facility: [facility] Address: [address] [place] [address] Performed By: #### A LLBG ####[facility] LABORATORYCLIA [id number] [address] Calcium.ionized (BldV) [Mass/Vol] 1.17 mmol/L Normal 1.08-1.30 [facility] Comment on above: Order Comment: Speci men Type: ARTERIAL BLOOD SPECIMENOrdering Facility: [facility] Address: [address] [place] [address] Performed By: #### A LLBG ####[facility] LABORATORYCLIA [id number] [address] [place] Carboxyhemoglobin (BldA) [Mass fraction] 1.4 % Normal 0.0-2.0 [facility] Comment on above: Order Comment: Speci men Type: ARTERIAL BLOOD SPECIMENOrdering Facility: [facility] Address: [address] [place] [address] Result Comment: Carb oxyhemoglobin Reference Range for Smokers: 2.0-8.0% Performed By: #### A LLBG ####[facility] LABORATORYCLIA [id number] [place] [address] [place] CO2 (Bld) [Partial pressure] 38 mm Hg Normal 36-46 [facility] Comment on above: Order Comment: Speci men Type: ARTERIAL BLOOD SPECIMENOrdering Facility: [facility] Address: [address] [place] [address] Performed By: #### A LLBG ####[facility] LABORATORYCLIA [id number] [place] [address] [place] CO2 [Moles/Vol] 24.5 mmol/L Normal 22-28 [facility] Comment on above: Order Comment: Speci men Type: ARTERIAL BLOOD SPECIMENOrdering Facility: [facility] Address: [address] [place] [address] Performed By: #### A LLBG ####[facility] LABORATORYCLIA [id number] [address] [place] CO2 adjusted to patient's actual temperature (Bld) [Partial pressure] 38 mmHg Normal 36-46 [facility] Comment on above: Order Comment: Speci men Type: ARTERIAL BLOOD SPECIMENOrdering Facility: [facility] Address: [address] [place] [address] Performed By: #### A LLBG ####[facility] LABORATORYCLIA [id number] [place] [address] [place] Glucose [Mass/Vol] 147 mg/dL High 60-105 [facility] Comment on above: Order Comment: Speci men Type: ARTERIAL BLOOD SPECIMENOrdering Facility: [facility] Address: [address] [place] [address] Performed By: #### A LLBG ####[facility]ATORYCLIA [id number] [place] [address] [place] HCO3 (Bld) [Moles/Vol] 27 mmol/L High 22-26 [facility] Comment on above: Order Comment: Speci men Type: ARTERIAL BLOOD SPECIMENOrdering Facility: [facility] Address: [address] [place] [address] Performed By: #### A LLBG ####[facility]ATORYCLIA [id number] [address] [place] Hematocrit (Bld) [Volume fraction] 31.8 % Low 39.0-51.0 [facility] Comment on above: Order Comment: Speci men Type: ARTERIAL BLOOD SPECIMENOrdering Facility: [facility] Address: [address] [place] [address] Performed By: #### A LLBG ####[facility] LABORATORYCLIA [id number] [address] [place] Hemoglobin (Bld) [Mass/Vol] 10.3 g/dL Low 13.0-17.0 [facility] Comment on above: Order Comment: Speci men Type: ARTERIAL BLOOD SPECIMENOrdering Facility: [facility] Address: [address] [place] [address] Performed By: #### A LLBG ####[facility]ORATORYCLIA [id number] [address] OF [facility] Methemoglobin (Bld) [Mass fraction] 1.0 % Normal 0.0-1.5 [facility] Comment on above: Order Comment: Speci men Type: ARTERIAL BLOOD SPECIMENOrdering Facility: [facility] Address: [address] [place] [address] Performed By: #### A LLBG ####[facility] LABORATORYCLIA [id number] [address] [place] O2 THERAPY Ventilator Normal [facility] Comment on above: Order Comment: Speci men Type: ARTERIAL BLOOD SPECIMENOrdering Facility: [facility] Address: [address] [place] [address] Performed By: #### A LLBG ####[facility]ORATORYCLIA [id number] [address] [place] Oxygen (Bld) [Partial pressure] 78 mm Hg Low 85-95 [facility] Comment on above: Order Comment: Speci men Type: ARTERIAL BLOOD SPECIMENOrdering Facility: [facility] Address: [address] [place] [address] Performed By: #### A LLBG ####[facility]ORATORYCLIA [id number] [address] Oxygen adjusted to patient's actual temperature (Bld) [Partial pressure] 79.7 mmHg Low 85-95 [facility] Comment on above: Order Comment: Speci men Type: ARTERIAL BLOOD SPECIMENOrdering Facility: [facility] Address: [address] [place] [address] Performed By: #### A LLBG ####[facility]ORATORYCLIA [id number] [address] [place] OXYGEN SATURATION, ARTERIAL 96 % Normal 95-98 [facility] Comment on above: Order Comment: Speci men Type: ARTERIAL BLOOD SPECIMENOrdering Facility: [facility] Address: [address] [place] [address] Performed By: #### A LLBG ####[facility]ORATORYCLIA [id number] [address] Oxyhemoglobin (BldA) [Mass fraction] 94 % Low 95-98 [facility] Comment on above: Order Comment: Speci men Type: ARTERIAL BLOOD SPECIMENOrdering Facility: [facility] Address: [address] [place] [address] Performed By: #### A LLBG ####[facility] LABORATORYCLIA [id number] [address] [place] pH (Bld) 7.47 [pH] High 7.35-7.45 [facility] Comment on above: Order Comment: Speci men Type: ARTERIAL BLOOD SPECIMENOrdering Facility: [facility] Address: [address] [place] [address] Performed By: #### A LLBG ####[facility]ORATORYCLIA [id number] [address] pH adjusted to patient's actual temperature (Bld) 7.46 High 7.35-7.45 [facility] Comment on above: Order Comment: Speci men Type: ARTERIAL BLOOD SPECIMENOrdering Facility: [facility] Address: [address] [address] Performed By: #### A LLBG ####[facility]ORATORYCLIA [id number] [address] Potassium [Moles/Vol] 3.7 mmol/L Normal 3.5-5.0 [facility] Comment on above: Order Comment: Speci men Type: ARTERIAL BLOOD SPECIMENOrdering Facility: [facility] Address: [address] [address] Performed By: #### A LLBG ####[facility]ORATORYCLIA [id number] [address] Sodium [Moles/Vol] 155 mmol/L High 136-144 [facility] Comment on above: Order Comment: Speci men Type: ARTERIAL BLOOD SPECIMENOrdering Facility: [facility] Address: [address] [place] [address] Performed By: #### A LLBG ####[facility] LABORATORYCLIA [id number] [address] STATES OF [facility] Bacteria Spec Resp Culton Bacteria identified Respiratory culture Nom (Unsp spec) CULTURE, RESPIRATORY: Rare Normal respiratory chris present ORGANISM ID: 1 Few Yeast, not cryptococcus neoformans GRAM STAIN: No organisms seen Few Polymorphonuclear leukocytes Few Epithelial cells Abnormal [facility] Comment on above: Performed By: #### 3 2355-0 ####[facility]ORATORYCLIA [id number] [address] [place] Basic metabolic 2000 panelon 06-16-2021 Anion gap [Moles/Vol] 9 mmol/L Normal 9-18 [facility] Comment on above: Order Comment: Speci men Type: BLOOD SPECIMENOrdering Facility: [facility] Address: [address] [place] [address] Performed By: #### 2 4321-2 ####[facility]ORATORYCLIA [id number] [address] Calcium [Mass/Vol] 8.4 mg/dL Low 8.5-10.2 [facility] Comment on above: Order Comment: Speci men Type: BLOOD SPECIMENOrdering Facility: [facility] Address: [address] [place] [address] Performed By: #### 2 4321-2 ####[facility]ORATORYCLIA [id number] [place] [address] [place] Chloride [Moles/Vol] 120 mmol/L High 97-105 [facility] Comment on above: Order Comment: Speci men Type: BLOOD SPECIMENOrdering Facility: [facility] Address: [address] [place] [address] Performed By: #### 2 4321-2 ####[facility] LABORATORYCLIA [id number] [place] [address] [place] CO2 [Moles/Vol] 27 mmol/L Normal 22-30 [facility] Comment on above: Order Comment: Speci men Type: BLOOD SPECIMENOrdering Facility: [facility] Address: [address] [place] [address] Performed By: #### 2 4321-2 ####[facility]ORATORYCLIA [id number] [place] [address] [place] Creatinine [Mass/Vol] 0.75 mg/dL Normal 0.73-1.22 [facility] Comment on above: Order Comment: Speci men Type: BLOOD SPECIMENOrdering Facility: [facility] Address: [address] [place] [address] Performed By: #### 2 4321-2 ####[facility]ORATORYCLIA [id number] [place] [address] [place] GFR/1.73 sq M.predicted MDRD (S/P/Bld) [Vol rate/Area] mL/min/{1.73_m2} Normal [facility] Comment on above: Order Comment: Speci men Type: BLOOD SPECIMENOrdering Facility: [facility] Address: [address] [place] [address] Result Comment: >60e GFR (Estimated GFR) Units [...] actual GFR. Performed By: #### 2 4321-2 ####[facility]ORATORYCLIA [id number] [place] [address] [place] Glucose [Mass/Vol] 160 mg/dL High 74-99 [facility] Comment on above: Order Comment: Shira feldman Type: BLOOD SPECIMENOrdering Facility: [facility] Address: [address] [place] [address] Result Comment: The [place] [employer] (ADA) provides guidance for cutoff [...] Standards of Medical Care in Diabetes 2016, [place] [employer]. Diabetes Care. 2016.39(Suppl 1). Performed By: #### 2 4321-2 ####[facility]ORATORYCLIA [id number] [place] [address] [place] Potassium [Moles/Vol] 3.1 mmol/L Low 3.7-5.1 [facility] Comment on above: Order Comment: Shira feldman Type: BLOOD SPECIMENOrdering Facility: [facility] Address: [address] [place], [place] [address] Performed By: #### 2 4321-2 ####[facility]ORATORYCLIA [id number] [place] [address] [place] Sodium [Moles/Vol] 156 mmol/L High 136-144 [facility] Comment on above: Order Comment: Speci men Type: BLOOD SPECIMENOrdering Facility: [facility] Address: [address] [place] [address] Performed By: #### 2 4321-2 ####[facility]ORATORYCLIA [id number] [place] [address] [place] Urea nitrogen [Mass/Vol] 33 mg/dL High 9-24 [facility] Comment on above: Order Comment: Speci men Type: BLOOD SPECIMENOrdering Facility: [facility] Address: [address] [place] [address] Performed By: #### 2 4321-2 ####[facility]ORATORYCLIA [id number] [address] [place] CASE MANAGEMon 06-16-2021 CASE MANAGEM Normal [facility] CBC panel Auto (Bld)on 06-16 Erythrocyte distribution width (RBC) [Ratio] 15.9 % High 11.5-15.0 [facility] Comment on above: Order Comment: Speci men Type: BLOOD SPECIMENOrdering Facility: [facility] Address: [address] [place] [address] Performed By: #### 5 8410-2 ####[facility] LABORATORYCLIA [id number] [place] [address] [place] Hematocrit (Bld) [Volume fraction] 34.6 % Low 39.0-51.0 [facility] Comment on above: Order Comment: Speci men Type: BLOOD SPECIMENOrdering Facility: [facility] Address: [address] [place] [address] Performed By: #### 5 8410-2 ####[facility]ORATORYCLIA [id number] [place] [address] [place] Hemoglobin (Bld) [Mass/Vol] 10.2 g/dL Low 13.0-17.0 [facility] Comment on above: Order Comment: Speci men Type: BLOOD SPECIMENOrdering Facility: [facility] Address: [address] [place] [address] Performed By: #### 5 8410-2 ####[facility]ORATORYCLIA [id number] [address] MCH (RBC) [Entitic mass] 28.5 pg Normal 26.0-34.0 [facility] Comment on above: Order Comment: Speci men Type: BLOOD SPECIMENOrdering Facility: [facility] Address: [address] [place] [address] Performed By: #### 5 8410-2 ####[facility]ORATORYCLIA [id number] [address] MCHC (RBC) [Mass/Vol] 29.5 g/dL Low 30.5-36.0 [facility] Comment on above: Order Comment: Speci men Type: BLOOD SPECIMENOrdering Facility: [facility] Address: [address] [place] [address] Performed By: #### 5 8410-2 ####[facility]ORATORYCLIA [id number] [address] MCV (RBC) [Entitic vol] 96.6 fL Normal 80.0-100.0 [facility] Comment on above: Order Comment: Speci men Type: BLOOD SPECIMENOrdering Facility: [facility] Address: [address] [place] [address] Performed By: #### 5 8410-2 ####[facility]ORATORYCLIA [id number] [address] Nucleated RBC (Bld) [#/Vol] 10*3/uL Normal <0.01 [facility] Comment on above: Order Comment: Speci men Type: BLOOD SPECIMENOrdering Facility: [facility] Address: [address] [place] [address] Performed By: #### 5 8410-2 ####[facility]ORATORYCLIA [id number] [address] [place] Platelet mean volume (Bld) [Entitic vol] 11.9 fL Normal 9.0-12.7 [facility] Comment on above: Order Comment: Speci men Type: BLOOD SPECIMENOrdering Facility: [facility] Address: [address] [place] [address] Performed By: #### 5 8410-2 ####[facility]ORATORYCLIA [id number] [address] [place] Platelets (Bld) [#/Vol] 269 10*3/uL Normal 150-400 [facility] Comment on above: Order Comment: Speci men Type: BLOOD SPECIMENOrdering Facility: [facility] Address: [address] [place] [address] Performed By: #### 5 8410-2 ####[facility] LABORATORYCLIA [id number] [place] [address] [place] RBC (Bld) [#/Vol] 3.58 10*6/uL Low 4.20-6.00 [facility] Comment on above: Order Comment: Speci men Type: BLOOD SPECIMENOrdering Facility: [facility] Address: [address] [place] [address] Performed By: #### 5 8410-2 ####[facility]ORATORYCLIA [id number] [address] [place] WBC (Bld) [#/Vol] 13.11 10*3/uL High 3.70-11.00 [facility] Comment on above: Order Comment: Speci men Type: BLOOD SPECIMENOrdering Facility: [facility] Address: [address] [place] [address] Performed By: #### 5 8410-2 ####[facility] LABORATORYCLIA [id number] [address] [place] CONSULTon 06-16-2021 CONSULT Normal [facility] CONSULT PROGon 06-16-2021 CONSULT PROG Normal [facility] CT BRAIN WO IVCONon 06-16-[address] BRAIN WO IVCON Normal [facility] HEMOGLOBIN (HGB)on 2 Hemoglobin (Bld) [Mass/Vol] 8.9 g/dL Low 13.0-17.0 [facility] Comment on above: Order Comment: Speci men Type: BLOOD SPECIMENOrdering Facility: [facility] Address: [address] [place] [address] Performed By: #### H GB ####[facility] LABORATORYCLIA [id number] [address] STATES OF [facility] Hemoglobin (Bld) [Mass/Vol] 9.6 g/dL Low 13.0-17.0 [facility] Comment on above: Order Comment: Speci men Type: BLOOD SPECIMENOrdering Facility: [facility] Address: [address] [place] [address] Performed By: #### H GB ####[facility]ORATORYCLIA [id number] [address] [place] Magnesium SerPl-mCncon 06-16 Magnesium [Mass/Vol] 2.7 mg/dL High 1.7-2.3 [facility] Comment on above: Order Comment: Speci men Type: BLOOD SPECIMENOrdering Facility: [facility] Address: [address] [place] [address] Performed By: #### 1 9123-9 ####[facility]ORATORYCLIA [id number] [place] [address] [place] NURSING PROGon 06-16-2021 NURSING PROG Normal [facility] NUTRITIONon 06-16-2021 NUTRITION Normal [facility] Phosphate SerPl-mCncon 06-16 Phosphate [Mass/Vol] 1.4 mg/dL Low 2.7-4.8 [facility] Comment on above: Order Comment: Speci men Type: BLOOD SPECIMENOrdering Facility: [facility] Address: [address] [place] [address] Performed By: #### 2 777-1 ####[facility]ORATORYCLIA [id number] [place] [address] [place] STAPH AUREUS PCRon 2 S. aureus and MRSA panel MEGAN+probe (Nose) Normal Negative [facility] Comment on above: Order Comment: Speci men Type: SWAB OF INTERNAL NOSEOrdering Facility: [facility] Address: [address] [place] [address] Result Comment: Nega tive for Staphylococcus aureus by PCR.Negative for MRSA by PCR Performed By: #### S APCR ####[facility]ORATORYCLIA [id number] [place] [address] [place] Sodium SerPl-sCncon 06-16-19 Sodium [Moles/Vol] 150 mmol/L High 136-144 [facility] Comment on above: Order Comment: Speci men Type: BLOOD SPECIMENOrdering Facility: [facility] Address: [address] [place] [address] Performed By: #### 2 951-2 ####[facility]ORATORYCLIA [id number] [place] [address] [place] Sodium [Moles/Vol] 153 mmol/L High 136-144 [facility] Comment on above: Order Comment: Speci men Type: BLOOD SPECIMENOrdering Facility: [facility] Address: [address] [place] [address] Performed By: #### 2 951-2 ####[facility]ORATORYCLIA [id number] [place] [address] [place] Sodium [Moles/Vol] 158 mmol/L High 136-144 [facility] Comment on above: Order Comment: Speci men Type: BLOOD SPECIMENOrdering Facility: [facility] Address: [address] [place] [address] Performed By: #### 2 951-2 ####[facility]ORATORYCLIA [id number] [place] [address] [place] aPTT PPPon 06-16-2021 aPTT Coag (PPP) [Time] 61.8 s High 23.0-32.4 [facility] Comment on above: Order Comment: Speci men Type: BLOOD SPECIMENOrdering Facility: [facility] Address: [address] [place] [address] Performed By: #### 1 4979-9 ####[facility]ORATORYCLIA [id number] [place] [address] [place] aPTT Coag (PPP) [Time] 57.6 s High 23.0-32.4 [facility] Comment on above: Order Comment: Speci men Type: BLOOD SPECIMENOrdering Facility: [facility] Address: [address] [place] [address] Performed By: #### 1 4979-9 ####[facility]ORATORYCLIA [id number] [address] [place] ALLIED HEALTHon 06-15-2021 ALLIED HEALTH Normal [facility] ALLIED HEALTH Normal [facility] ALLIED HEALTH Normal [facility] ALLIED HEALTH Normal [facility] ARTERIAL BLOOD GASESon 06-15 Base excess Calc (Bld) [Moles/Vol] 3 mmol/L High 0-2 [facility] Comment on above: Order Comment: Speci men Type: ARTERIAL BLOOD SPECIMENOrdering Facility: [facility] Address: [address] [place] [address] Performed By: #### A LLBG ####[facility]ORATORYCLIA [id number] [address] [place] Body temperature 99.5 [degF] Normal [facility] Comment on above: Order Comment: Speci men Type: ARTERIAL BLOOD SPECIMENOrdering Facility: [facility] Address: [address] [place] [address] Performed By: #### A LLBG ####[facility]ORATORYCLIA [id number] [address] [place] CALCIUM IONIZED, PH CORRECTED 1.34 mmol/L High 1.08-1.30 [facility] Comment on above: Order Comment: Speci men Type: ARTERIAL BLOOD SPECIMENOrdering Facility: [facility] Address: [address] [place] [address] Performed By: #### A LLBG ####[facility]ORATORYCLIA [id number] [address] Calcium.ionized (BldV) [Mass/Vol] 1.29 mmol/L Normal 1.08-1.30 [facility] Comment on above: Order Comment: Speci men Type: ARTERIAL BLOOD SPECIMENOrdering Facility: [facility] Address: [address] [place] [address] Performed By: #### A LLBG ####[facility]ORATORYCLIA [id number] [address] Carboxyhemoglobin (BldA) [Mass fraction] 1.3 % Normal 0.0-2.0 [facility] Comment on above: Order Comment: Speci men Type: ARTERIAL BLOOD SPECIMENOrdering Facility: [facility] Address: [address] [place] [address] Result Comment: Carb oxyhemoglobin Reference Range for Smokers: 2.0-8.0% Performed By: #### A LLBG ####[facility]ORATORYCLIA [id number] [address] [place] CO2 (Bld) [Partial pressure] 37 mm Hg Normal 36-46 [facility] Comment on above: Order Comment: Speci men Type: ARTERIAL BLOOD SPECIMENOrdering Facility: [facility] Address: [address] [place] [address] Performed By: #### A LLBG ####[facility]ORATORYCLIA [id number] [address] [place] CO2 [Moles/Vol] 24.6 mmol/L Normal 22-28 [facility] Comment on above: Order Comment: Speci men Type: ARTERIAL BLOOD SPECIMENOrdering Facility: [facility] Address: [address] [place] [address] Performed By: #### A LLBG ####[facility]ORATORYCLIA [id number] [address] [place] CO2 adjusted to patient's actual temperature (Bld) [Partial pressure] 38 mmHg Normal 36-46 [facility] Comment on above: Order Comment: Speci men Type: ARTERIAL BLOOD SPECIMENOrdering Facility: [facility] Address: [address] [place] [address] Performed By: #### A LLBG ####[facility]ORATORYCLIA [id number] [address] [place] FIO2 100 % Normal [facility] Comment on above: Order Comment: Speci men Type: ARTERIAL BLOOD SPECIMENOrdering Facility: [facility] Address: [address] [place] [address] Performed By: #### A LLBG ####[facility]ORATORYCLIA [id number] [address] [place] Glucose [Mass/Vol] 159 mg/dL High 60-105 [facility] Comment on above: Order Comment: Speci men Type: ARTERIAL BLOOD SPECIMENOrdering Facility: [facility] Address: [address] [place] [address] Performed By: #### A LLBG ####[facility]ORATORYCLIA [id number] [address] [place] HCO3 (Bld) [Moles/Vol] 27 mmol/L High 22-26 [facility] Comment on above: Order Comment: Speci men Type: ARTERIAL BLOOD SPECIMENOrdering Facility: [facility] Address: [address] [place] [address] Performed By: #### A LLBG ####[facility]ORATORYCLIA [id number] [address] [place] Hematocrit (Bld) [Volume fraction] 31.0 % Low 39.0-51.0 [facility] Comment on above: Order Comment: Speci men Type: ARTERIAL BLOOD SPECIMENOrdering Facility: [facility] Address: [address] [place] [address] Performed By: #### A LLBG ####[facility]ORATORYCLIA [id number] [address] OF [facility] Hemoglobin (Bld) [Mass/Vol] 10.0 g/dL Low 13.0-17.0 [facility] Comment on above: Order Comment: Speci men Type: ARTERIAL BLOOD SPECIMENOrdering Facility: [facility] Address: [address] [place] [address] Performed By: #### A LLBG ####[facility] LABORATORYCLIA [id number] [address] Methemoglobin (Bld) [Mass fraction] % Normal 0.0-1.5 [facility] Comment on above: Order Comment: Speci men Type: ARTERIAL BLOOD SPECIMENOrdering Facility: [facility] Address: [address] [place] [address] Performed By: #### A LLBG ####[facility] LABORATORYCLIA [id number] [address] O2 THERAPY Ventilator Normal [facility] Comment on above: Order Comment: Speci men Type: ARTERIAL BLOOD SPECIMENOrdering Facility: [facility] Address: [address] [place] [address] Performed By: #### A LLBG ####[facility] LABORATORYCLIA [id number] [address] [place] Oxygen (Bld) [Partial pressure] 279 mm Hg High 85-95 [facility] Comment on above: Order Comment: Speci men Type: ARTERIAL BLOOD SPECIMENOrdering Facility: [facility] Address: [address] [place] [address] Performed By: #### A LLBG ####[facility] LABORATORYCLIA [id number] [address] Oxygen adjusted to patient's actual temperature (Bld) [Partial pressure] 281 mmHg High 85-95 [facility] Comment on above: Order Comment: Speci men Type: ARTERIAL BLOOD SPECIMENOrdering Facility: [facility] Address: [address] [place] [address] Performed By: #### A LLBG ####[facility]ORATORYCLIA [id number] [address] [place] OXYGEN SATURATION, ARTERIAL 100 % High 95-98 [facility] Comment on above: Order Comment: Speci men Type: ARTERIAL BLOOD SPECIMENOrdering Facility: [facility] Address: [address] [place] [address] Performed By: #### A LLBG ####[facility]ORATORYCLIA [id number] [address] Oxyhemoglobin (BldA) [Mass fraction] 98 % Normal 95-98 [facility] Comment on above: Order Comment: Speci men Type: ARTERIAL BLOOD SPECIMENOrdering Facility: [facility] Address: [address] [place] [address] Performed By: #### A LLBG ####[facility] LABORATORYCLIA [id number] [address] [place] pH (Bld) 7.47 [pH] High 7.35-7.45 [facility] Comment on above: Order Comment: Speci men Type: ARTERIAL BLOOD SPECIMENOrdering Facility: [facility] Address: [address] [place] [address] Performed By: #### A LLBG ####[facility]ORATORYCLIA [id number] [address] pH adjusted to patient's actual temperature (Bld) 7.46 High 7.35-7.45 [facility] Comment on above: Order Comment: Speci men Type: ARTERIAL BLOOD SPECIMENOrdering Facility: [facility] Address: [address] [place] [address] Performed By: #### A LLBG ####[facility] LABORATORYCLIA [id number] [address] [place] Potassium [Moles/Vol] 3.6 mmol/L Normal 3.5-5.0 [facility] Comment on above: Order Comment: Speci men Type: ARTERIAL BLOOD SPECIMENOrdering Facility: [facility] Address: [address] [address] Performed By: #### A LLBG ####[facility] LABORATORYCLIA [id number] [address] [place] Sodium [Moles/Vol] 162 mmol/L High 136-144 [facility] Comment on above: Order Comment: Speci men Type: ARTERIAL BLOOD SPECIMENOrdering Facility: [facility] Address: [address] [place] [address] Performed By: #### A LLBG ####[facility] LABORATORYCLIA [id number] [address] [place] Base excess Calc (Bld) [Moles/Vol] 4 mmol/L High 0-2 [facility] Comment on above: Order Comment: Speci men Type: ARTERIAL BLOOD SPECIMENOrdering Facility: [facility] Address: [address] [place] [address] Performed By: #### A LLBG ####[facility] LABORATORYCLIA [id number] [address] [place] Body temperature 100.58 [degF] Normal [facility] Comment on above: Order Comment: Speci men Type: ARTERIAL BLOOD SPECIMENOrdering Facility: [facility] Address: [address] [place] [address] Performed By: #### A LLBG ####[facility] LABORATORYCLIA [id number] [address] [place] CALCIUM IONIZED, PH CORRECTED 1.34 mmol/L High 1.08-1.30 [facility] Comment on above: Order Comment: Speci men Type: ARTERIAL BLOOD SPECIMENOrdering Facility: [facility] Address: [address] [place] [address] Performed By: #### A LLBG ####[facility] LABORATORYCLIA [id number] [address] [place] Calcium.ionized (BldV) [Mass/Vol] 1.33 mmol/L High 1.08-1.30 [facility] Comment on above: Order Comment: Speci men Type: ARTERIAL BLOOD SPECIMENOrdering Facility: [facility] Address: [address] [place] [address] Performed By: #### A LLBG ####[facility] LABORATORYCLIA [id number] [address] [place] Carboxyhemoglobin (BldA) [Mass fraction] 1.5 % Normal 0.0-2.0 [facility] Comment on above: Order Comment: Speci men Type: ARTERIAL BLOOD SPECIMENOrdering Facility: [facility] Address: [address] [place] [address] Result Comment: Carb oxyhemoglobin Reference Range for Smokers: 2.0-8.0% Performed By: #### A LLBG ####[facility]ORATORYCLIA [id number] [address] [place] CO2 (Bld) [Partial pressure] 46 mm Hg Normal 36-46 [facility] Comment on above: Order Comment: Speci men Type: ARTERIAL BLOOD SPECIMENOrdering Facility: [facility] Address: [address] [place] [address] Performed By: #### A LLBG ####[facility]ORATORYCLIA [id number] [address] [place] CO2 [Moles/Vol] 26.4 mmol/L Normal 22-28 [facility] Comment on above: Order Comment: Speci men Type: ARTERIAL BLOOD SPECIMENOrdering Facility: [facility] Address: [address] [place] [address] Performed By: #### A LLBG ####[facility]ORATORYCLIA [id number] [address] [place] CO2 adjusted to patient's actual temperature (Bld) [Partial pressure] 48 mmHg High 36-46 [facility] Comment on above: Order Comment: Speci men Type: ARTERIAL BLOOD SPECIMENOrdering Facility: [facility] Address: [address] [place] [address] Performed By: #### A LLBG ####[facility] LABORATORYCLIA [id number] [address] [place] FIO2 100 % Normal [facility] Comment on above: Order Comment: Speci men Type: ARTERIAL BLOOD SPECIMENOrdering Facility: [facility] Address: [address] [place] [address] Performed By: #### A LLBG ####[facility] LABORATORYCLIA [id number] [address] [place] Glucose [Mass/Vol] 132 mg/dL High 60-105 [facility] Comment on above: Order Comment: Speci men Type: ARTERIAL BLOOD SPECIMENOrdering Facility: [facility] Address: [address] [place] [address] Performed By: #### A LLBG ####[facility]ORATORYCLIA [id number] [address] [place] HCO3 (Bld) [Moles/Vol] 29 mmol/L High 22-26 [facility] Comment on above: Order Comment: Speci men Type: ARTERIAL BLOOD SPECIMENOrdering Facility: [facility] Address: [address] [place] [address] Performed By: #### A LLBG ####[facility]ORATORYCLIA [id number] [address] Hematocrit (Bld) [Volume fraction] 32.3 % Low 39.0-51.0 [facility] Comment on above: Order Comment: Speci men Type: ARTERIAL BLOOD SPECIMENOrdering Facility: [facility] Address: [address] [address] Performed By: #### A LLBG ####[facility]ORATORYCLIA [id number] [address] [place] Hemoglobin (Bld) [Mass/Vol] 10.4 g/dL Low 13.0-17.0 [facility] Comment on above: Order Comment: Speci men Type: ARTERIAL BLOOD SPECIMENOrdering Facility: [facility] Address: [address] [place] [address] Performed By: #### A LLBG ####[facility]ORATORYCLIA [id number] [address] Methemoglobin (Bld) [Mass fraction] % Normal 0.0-1.5 [facility] Comment on above: Order Comment: Speci men Type: ARTERIAL BLOOD SPECIMENOrdering Facility: [facility] Address: [address] [place] [address] Performed By: #### A LLBG ####[facility] LABORATORYCLIA [id number] [address] O2 THERAPY NR=Non-Rebreather Mask Normal [facility] Comment on above: Order Comment: Speci men Type: ARTERIAL BLOOD SPECIMENOrdering Facility: [facility] Address: [address] [place] [address] Performed By: #### A LLBG ####[facility]ORATORYCLIA [id number] [address] Oxygen (Bld) [Partial pressure] 130 mm Hg High 85-95 [facility] Comment on above: Order Comment: Speci men Type: ARTERIAL BLOOD SPECIMENOrdering Facility: [facility] Address: [address] [place] [address] Performed By: #### A LLBG ####[facility]ORATORYCLIA [id number] [address] Oxygen adjusted to patient's actual temperature (Bld) [Partial pressure] 136 mmHg High 85-95 [facility] Comment on above: Order Comment: Speci men Type: ARTERIAL BLOOD SPECIMENOrdering Facility: [facility] Address: [address] [address] Performed By: #### A LLBG ####[facility]ORATORYCLIA [id number] [address] OXYGEN SATURATION, ARTERIAL 99 % High 95-98 [facility] Comment on above: Order Comment: Speci men Type: ARTERIAL BLOOD SPECIMENOrdering Facility: [facility] Address: [address] [address] Performed By: #### A LLBG ####[facility]ORATORYCLIA [id number] [address] [place] Oxyhemoglobin (BldA) [Mass fraction] 97 % Normal 95-98 [facility] Comment on above: Order Comment: Speci men Type: ARTERIAL BLOOD SPECIMENOrdering Facility: [facility] Address: [address] [place] [address] Performed By: #### A LLBG ####[facility]ORATORYCLIA [id number] [address] [place] pH (Bld) 7.41 [pH] Normal 7.35-7.45 [facility] Comment on above: Order Comment: Speci men Type: ARTERIAL BLOOD SPECIMENOrdering Facility: [facility] Address: [address] [place] [address] Performed By: #### A LLBG ####[facility] LABORATORYCLIA [id number] [address] pH adjusted to patient's actual temperature (Bld) 7.40 Normal 7.35-7.45 [facility] Comment on above: Order Comment: Speci men Type: ARTERIAL BLOOD SPECIMENOrdering Facility: [facility] Address: [address] [place] [address] Performed By: #### A LLBG ####[facility] LABORATORYCLIA [id number] [address] [place] Potassium [Moles/Vol] 3.8 mmol/L Normal 3.5-5.0 [facility] Comment on above: Order Comment: Speci men Type: ARTERIAL BLOOD SPECIMENOrdering Facility: [facility] Address: [address] [place] [address] Performed By: #### A LLBG ####[facility]ORATORYCLIA [id number] [address] [place] Sodium [Moles/Vol] 166 mmol/L High 136-144 [facility] Comment on above: Order Comment: Speci men Type: ARTERIAL BLOOD SPECIMENOrdering Facility: [facility] Address: [address] [place] [address] Performed By: #### A LLBG ####[facility]ORATORYCLIA [id number] [address] Bacteria Bld Culton 06-15-19 22 Bacteria identified Cx Nom (Bld) CULTURE, BLOOD: No growth 5 days Normal [facility] Comment on above: Performed By: #### 6 00-7 ####[facility]ORATORYCLIA [id number] [address] OF [facility] Basic metabolic 2000 panelon 06-15-2021 Anion gap [Moles/Vol] 9 mmol/L Normal 9-18 [facility] Comment on above: Order Comment: Speci men Type: BLOOD SPECIMEN Performed By: #### 2 4321-2, 2776-05, ####[facility]ORATORYCLIA [id number] [address] STATES [facility] Calcium [Mass/Vol] 9.0 mg/dL Normal 8.5-10.2 [facility] Comment on above: Order Comment: Speci men Type: BLOOD SPECIMEN Performed By: #### 2 4321-2, 2776-05, ####[facility]ORATORYCLIA [id number] [address] STATES OF [facility] Chloride [Moles/Vol] 125 mmol/L High 97-105 [facility] Comment on above: Order Comment: Speci men Type: BLOOD SPECIMEN Performed By: #### 2 4321-2, 2776-05, ####[facility] LABORATORYCLIA [id number] [place] [address] [place] CO2 [Moles/Vol] 29 mmol/L Normal 22-30 [facility] Comment on above: Order Comment: Speci men Type: BLOOD SPECIMEN Performed By: #### 2 4321-2, 2776-05, ####[facility]ORATORYCLIA [id number] [place] [address] [place] Creatinine [Mass/Vol] 0.81 mg/dL Normal 0.73-1.22 [facility] Comment on above: Order Comment: Speci men Type: BLOOD SPECIMEN Performed By: #### 2 4321-2, 2777-, ####[facility] LABORATORYCLIA [id number] [place] [address] [place] GFR/1.73 sq M.predicted MDRD (S/P/Bld) [Vol rate/Area] mL/min/{1.73_m2} Normal [facility] Comment on above: Order Comment: Speci [...] GFR. Performed By: #### 2 4321-2, 2777-, ####[facility] LABORATORYCLIA [id number] [place] [address] [place] Glucose [Mass/Vol] 124 mg/dL High 74-99 [facility] Comment on above: Order Comment: Speci men Type: BLOOD SPECIMEN Result Comment: The [place] [employer] (ADA) provides guidance for cutoff [...] Standards of Medical Care in Diabetes 2016, [place] [employer]. Diabetes Care. 2016.39(Suppl 1). Performed By: #### 2 4321-2, 2777-1, ####[facility] LABORATORYCLIA [id number] [place], [place] [id number] [place] [address] [place] [facility] Potassium [Moles/Vol] 3.8 mmol/L Normal 3.7-5.1 [facility] Comment on above: Order Comment: Speci men Type: BLOOD SPECIMEN Performed By: #### 2 4321-2, 2776-, ####[facility] LABORATORYCLIA [id number] [place], [place] [address] [place] [address] [place] Sodium [Moles/Vol] 163 mmol/L High 136-144 [facility] Comment on above: Order Comment: Speci men Type: BLOOD SPECIMEN Performed By: #### 2 4321-2, 2776-, ####[facility]ORATORYCLIA [id number] [address] [place] [facility] Urea nitrogen [Mass/Vol] 35 mg/dL High 9-24 [facility] Comment on above: Order Comment: Speci men Type: BLOOD SPECIMEN Performed By: #### 2 4321-2, 2776-05, ####[facility]ORATORYCLIA [id number] [place], [place] [id number] [place] [address] [place] CBC panel Auto (Bld)on 06-15 Erythrocyte distribution width (RBC) [Ratio] 16.3 % High 11.5-15.0 [facility] Comment on above: Order Comment: Speci men Type: BLOOD SPECIMENOrdering Facility: [facility] Address: [address] [place] [address] Performed By: #### 5 8410-2 ####[facility] LABORATORYCLIA [id number] [address] Hematocrit (Bld) [Volume fraction] 30.0 % Low 39.0-51.0 [facility] Comment on above: Order Comment: Speci men Type: BLOOD SPECIMENOrdering Facility: [facility] Address: [address] [address] Performed By: #### 5 8410-2 ####[facility]ORATORYCLIA [id number] [address] Hemoglobin (Bld) [Mass/Vol] 8.9 g/dL Low 13.0-17.0 [facility] Comment on above: Order Comment: Speci men Type: BLOOD SPECIMENOrdering Facility: [facility] Address: [address] [place] [address] Performed By: #### 5 8410-2 ####[facility]ORATORYCLIA [id number] [address] MCH (RBC) [Entitic mass] 28.7 pg Normal 26.0-34.0 [facility] Comment on above: Order Comment: Speci men Type: BLOOD SPECIMENOrdering Facility: [facility] Address: [address] [place] [address] Performed By: #### 5 8410-2 ####[facility]ORATORYCLIA [id number] [address] MCHC (RBC) [Mass/Vol] 29.7 g/dL Low 30.5-36.0 [facility] Comment on above: Order Comment: Speci men Type: BLOOD SPECIMENOrdering Facility: [facility] Address: [address] [place] [address] Performed By: #### 5 8410-2 ####[facility] LABORATORYCLIA [id number] [address] [place] [facility] MCV (RBC) [Entitic vol] 96.8 fL Normal 80.0-100.0 [facility] Comment on above: Order Comment: Speci men Type: BLOOD SPECIMENOrdering Facility: [facility] Address: [address] [place] [address] Performed By: #### 5 8410-2 ####[facility]ORATORYCLIA [id number] [address] Nucleated RBC (Bld) [#/Vol] 10*3/uL Normal <0.01 [facility] Comment on above: Order Comment: Speci men Type: BLOOD SPECIMENOrdering Facility: [facility] Address: [address] [place] [address] Performed By: #### 5 8410-2 ####[facility] LABORATORYCLIA [id number] [place] [address] [place] Platelet mean volume (Bld) [Entitic vol] 12.3 fL Normal 9.0-12.7 [facility] Comment on above: Order Comment: Speci men Type: BLOOD SPECIMENOrdering Facility: [facility] Address: [address] [place] [address] Performed By: #### 5 8410-2 ####[facility] LABORATORYCLIA [id number] [address] [place] Platelets (Bld) [#/Vol] 226 10*3/uL Normal 150-400 [facility] Comment on above: Order Comment: Speci men Type: BLOOD SPECIMENOrdering Facility: [facility] Address: [address] [place] [address] Performed By: #### 5 8410-2 ####[facility] LABORATORYCLIA [id number] [place] [address] [place] RBC (Bld) [#/Vol] 3.10 10*6/uL Low 4.20-6.00 [facility] Comment on above: Order Comment: Speci men Type: BLOOD SPECIMENOrdering Facility: [facility] Address: [address] [address] Performed By: #### 5 8410-2 ####[facility] LABORATORYCLIA [id number] [place] [address] [place] WBC (Bld) [#/Vol] 10.77 10*3/uL Normal 3.70-11.00 [facility] Comment on above: Order Comment: Speci men Type: BLOOD SPECIMENOrdering Facility: [facility] Address: [address] [place], [place] [id number] Performed By: #### 5 8410-2 ####[facility] LABORATORYCLIA [id number] [address] Erythrocyte distribution width (RBC) [Ratio] 16.2 % High 11.5-15.0 [facility] Comment on above: Order Comment: Speci men Type: BLOOD SPECIMENOrdering Facility: [facility] Address: [address] [place] [address] Performed By: #### 5 8410-2 ####[facility] LABORATORYCLIA [id number] [address] Hematocrit (Bld) [Volume fraction] 34.8 % Low 39.0-51.0 [facility] Comment on above: Order Comment: Speci men Type: BLOOD SPECIMENOrdering Facility: [facility] Address: [address] [place] [address] Performed By: #### 5 8410-2 ####[facility] LABORATORYCLIA [id number] [address] Hemoglobin (Bld) [Mass/Vol] 10.0 g/dL Low 13.0-17.0 [facility] Comment on above: Order Comment: Speci men Type: BLOOD SPECIMENOrdering Facility: [facility] Address: [address] [place] [address] Performed By: #### 5 8410-2 ####[facility] LABORATORYCLIA [id number] [address] MCH (RBC) [Entitic mass] 27.5 pg Normal 26.0-34.0 [facility] Comment on above: Order Comment: Speci men Type: BLOOD SPECIMENOrdering Facility: [facility] Address: [address] [place] [address] Performed By: #### 5 8410-2 ####[facility] LABORATORYCLIA [id number] [address] [place] [facility] MCHC (RBC) [Mass/Vol] 28.7 g/dL Low 30.5-36.0 [facility] Comment on above: Order Comment: Speci men Type: BLOOD SPECIMENOrdering Facility: [facility] Address: [address] [place], [place] [address] Performed By: #### 5 8410-2 ####[facility] LABORATORYCLIA [id number] [address] MCV (RBC) [Entitic vol] 95.6 fL Normal 80.0-100.0 [facility] Comment on above: Order Comment: Speci men Type: BLOOD SPECIMENOrdering Facility: [facility] Address: [address] [place], [place] [address] Performed By: #### 5 8410-2 ####[facility] LABORATORYCLIA [id number] [address] OF [facility] Nucleated RBC (Bld) [#/Vol] 10*3/uL Normal <0.01 [facility] Comment on above: Order Comment: Speci men Type: BLOOD SPECIMENOrdering Facility: [facility] Address: [address] [place], [place] [address] Performed By: #### 5 8410-2 ####[facility] LABORATORYCLIA [id number] [address] Platelet mean volume (Bld) [Entitic vol] 11.9 fL Normal 9.0-12.7 [facility] Comment on above: Order Comment: Speci men Type: BLOOD SPECIMENOrdering Facility: [facility] Address: [address] [place], [place] [address] Performed By: #### 5 8410-2 ####[facility] LABORATORYCLIA [id number] [address] Platelets (Bld) [#/Vol] 246 10*3/uL Normal 150-400 [facility] Comment on above: Order Comment: Speci men Type: BLOOD SPECIMENOrdering Facility: [facility] Address: [address] [place], [place] [id number] Performed By: #### 5 8410-2 ####[facility] LABORATORYCLIA [id number] [address] [place] RBC (Bld) [#/Vol] 3.64 10*6/uL Low 4.20-6.00 [facility] Comment on above: Order Comment: Speci men Type: BLOOD SPECIMENOrdering Facility: [facility] Address: [address] [place] [address] Performed By: #### 5 8410-2 ####[facility] [facility]ORY[facility] [id number] [address] WBC (Bld) [#/Vol] 11.45 10*3/uL High 3.70-11.00 [facility] Comment on above: Order Comment: Speci men Type: BLOOD SPECIMENOrdering Facility: [facility] Address: [address] [place] [address] Performed By: #### 5 8410-2 ####[facility]ATORYCLIA [id number] [address] Erythrocyte distribution width (RBC) [Ratio] 15.9 % High 11.5-15.0 [facility] Comment on above: Order Comment: Speci men Type: BLOOD SPECIMEN Performed By: #### 5 8410-2 ####[facility]ATORYCLIA [id number] [address] Hematocrit (Bld) [Volume fraction] 35.8 % Low 39.0-51.0 [facility] Comment on above: Order Comment: Speci men Type: BLOOD SPECIMEN Performed By: #### 5 8410-2 ####[facility]ATORYCLIA [id number] [address] Hemoglobin (Bld) [Mass/Vol] 10.4 g/dL Low 13.0-17.0 [facility] Comment on above: Order Comment: Speci men Type: BLOOD SPECIMEN Performed By: #### 5 8410-2 ####[facility]ATORYCLIA [id number] [place] [address] MCH (RBC) [Entitic mass] 28.0 pg Normal 26.0-34.0 [facility] Comment on above: Order Comment: Speci men Type: BLOOD SPECIMEN Performed By: #### 5 8410-2 ####[facility]ORYCLIA [id number] [address] MCHC (RBC) [Mass/Vol] 29.1 g/dL Low 30.5-36.0 [facility] Comment on above: Order Comment: Speci men Type: BLOOD SPECIMEN Performed By: #### 5 8410-2 ####[facility]ATORYCLIA [id number] [address] MCV (RBC) [Entitic vol] 96.2 fL Normal 80.0-100.0 [facility] Comment on above: Order Comment: Speci men Type: BLOOD SPECIMEN Performed By: #### 5 8410-2 ####[facility]ATORYCLIA [id number] [address] Nucleated RBC (Bld) [#/Vol] 10*3/uL Normal <0.01 [facility] Comment on above: Order Comment: Speci men Type: BLOOD SPECIMEN Performed By: #### 5 8410-2 ####[facility]ATORYCLIA [id number] [address] Platelet mean volume (Bld) [Entitic vol] 11.6 fL Normal 9.0-12.7 [facility] Comment on above: Order Comment: Speci men Type: BLOOD SPECIMEN Performed By: #### 5 8410-2 ####[facility]ATORYCLIA [id number] [address] Platelets (Bld) [#/Vol] 265 10*3/uL Normal 150-400 [facility] Comment on above: Order Comment: Speci men Type: BLOOD SPECIMEN Performed By: #### 5 8410-2 ####[facility]ORYCLIA [id number] [address] RBC (Bld) [#/Vol] 3.72 10*6/uL Low 4.20-6.00 [facility] Comment on above: Order Comment: Speci men Type: BLOOD SPECIMEN Performed By: #### 5 8410-2 ####[facility]ORYCLIA [id number] [address] WBC (Bld) [#/Vol] 12.24 10*3/uL High 3.70-11.00 [facility] Comment on above: Order Comment: Speci men Type: BLOOD SPECIMEN Performed By: #### 5 8410-2 ####[facility]ATORYCLIA [id number] [address] CONSULTon 06-15-2021 CONSULT Normal [facility] CONSULT Normal [facility] CONSULT Normal [facility] CT BRAIN WO IVCONon 06-15-19 CT BRAIN WO IVCON Normal [facility] CT CHEST W IVCON PEon 2021 CT CHEST W IVCON PE Invalid Interpretation Code [facility] Chloride Unsp time (U) [Mole s/Vol]on 06-15-2021 Chloride (U) [Moles/Vol] 28 mmol/L Normal 16-250 [facility] Comment on above: Order Comment: Speci men Type: URINE SPECIMENOrdering Facility: [facility] Address: [address] [place] [address] Performed By: #### U TPR, 90427-8, 24359-8, 26651-7 ####[facility]ATORYCLIA [id number] [address] Comprehensive metabolic 2000 panelon 06-15-2021 Albumin [Mass/Vol] 2.8 g/dL Low 3.9-4.9 [facility] Comment on above: Order Comment: Speci men Type: BLOOD SPECIMENOrdering Facility: [facility] Address: [address] [place] [address] Performed By: #### 2 4323-8 ####[facility]ATORYCLIA [id number] [place] [address] [place] ALP [Catalytic activity/Vol] 74 U/L Normal 38-113 [facility] Comment on above: Order Comment: Speci men Type: BLOOD SPECIMENOrdering Facility: [facility] Address: [address] [address] Performed By: #### 2 4323-8 ####[facility]ATORYCLIA [id number] [place] [address] [place] ALT With P-5'-P [Catalytic activity/Vol] 50 U/L Normal 10-54 [facility] Comment on above: Order Comment: Speci men Type: BLOOD SPECIMENOrdering Facility: [facility] Address: [address] [address] Performed By: #### 2 4323-8 ####[facility]ATORYCLIA [id number] [address] STATES OF [facility] Anion gap [Moles/Vol] 12 mmol/L Normal 9-18 [facility] Comment on above: Order Comment: Speci men Type: BLOOD SPECIMENOrdering Facility: [facility] Address: [address] [place] [address] Performed By: #### 2 4323-8 ####[facility]ATORYCLIA [id number] [address] [place] AST With P-5'-P [Catalytic activity/Vol] 36 U/L Normal 14-40 [facility] Comment on above: Order Comment: Speci men Type: BLOOD SPECIMENOrdering Facility: [facility] Address: [address] [address] Performed By: #### 2 4323-8 ####[facility]ATORYCLIA [id number] [address] [place] Bilirubin [Mass/Vol] 0.5 mg/dL Normal 0.2-1.3 [facility] Comment on above: Order Comment: Speci men Type: BLOOD SPECIMENOrdering Facility: [facility] Address: [address] [address] Performed By: #### 2 4323-8 ####[facility]ATORYCLIA [id number] [place] [address] [place] Calcium [Mass/Vol] 8.8 mg/dL Normal 8.5-10.2 [facility] Comment on above: Order Comment: Speci men Type: BLOOD SPECIMENOrdering Facility: [facility] Address: [address] [place] [address] Performed By: #### 2 4323-8 ####[facility]ATORYCLIA [id number] [place] [address] [place] Chloride [Moles/Vol] 126 mmol/L High 97-105 [facility] Comment on above: Order Comment: Speci men Type: BLOOD SPECIMENOrdering Facility: [facility] Address: [address] [place] [address] Performed By: #### 2 4323-8 ####[facility]ATORYCLIA [id number] [address] [place] CO2 [Moles/Vol] 24 mmol/L Normal 22-30 [facility] Comment on above: Order Comment: Speci men Type: BLOOD SPECIMENOrdering Facility: [facility] Address: [address] [place] [address] Performed By: #### 2 4323-8 ####[facility]ATORYCLIA [id number] [place] [address] [place] Creatinine [Mass/Vol] 0.84 mg/dL Normal 0.73-1.22 [facility] Comment on above: Order Comment: Speci men Type: BLOOD SPECIMENOrdering Facility: [facility] Address: [address] [place] [address] Performed By: #### 2 4323-8 ####[facility]ATORYCLIA [id number] [place] [address] [place] GFR/1.73 sq M.predicted MDRD (S/P/Bld) [Vol rate/Area] mL/min/{1.73_m2} Normal [facility] Comment on above: Order Comment: Shira feldman Type: BLOOD SPECIMENOrdering Facility: [facility] Address: [address] [place], [place] [id number] Result Comment: >60e GFR (Estimated GFR) Units [...] actual GFR. Performed By: #### 2 4323-8 ####[facility]ATORYCLIA [id number] [place] [address] [place] Glucose [Mass/Vol] 142 mg/dL High 74-99 [facility] Comment on above: Order Comment: Johncara feldman Type: BLOOD SPECIMENOrdering Facility: [facility] Address: [address] [place], [place] [address] Result Comment: The [place] [employer] (ADA) provides guidance for cutoff [...] Standards of Medical Care in Diabetes 2016, [place] [employer]. Diabetes Care. 2016.39(Suppl 1). Performed By: #### 2 4323-8 ####[facility]ATORYCLIA [id number] [place] [address] [place] Potassium [Moles/Vol] 3.8 mmol/L Normal 3.7-5.1 [facility] Comment on above: Order Comment: Speci men Type: BLOOD SPECIMENOrdering Facility: [facility] Address: [address] [address] Performed By: #### 2 4323-8 ####[facility]ATORYCLIA [id number] [address] [place] Protein [Mass/Vol] 6.1 g/dL Low 6.3-8.0 [facility] Comment on above: Order Comment: Speci men Type: BLOOD SPECIMENOrdering Facility: [facility] Address: [address] [place] [address] Performed By: #### 2 4323-8 ####[facility]ATORYCLIA [id number] [place] [address] [place] Sodium [Moles/Vol] 162 mmol/L High 136-144 [facility] Comment on above: Order Comment: Speci men Type: BLOOD SPECIMENOrdering Facility: [facility] Address: [address] [place] [address] Performed By: #### 2 4323-8 ####[facility]ORYCLIA [id number] [place] [address] [place] Urea nitrogen [Mass/Vol] 33 mg/dL High 9-24 [facility] Comment on above: Order Comment: Speci men Type: BLOOD SPECIMENOrdering Facility: [facility] Address: [address] [place] [address] Performed By: #### 2 4323-8 ####[facility]ORYCLIA [id number] [place] [address] [place] Creatinine Unsp time (U) [Ma ss/Vol]on 06-15-2021 Creatinine (U) [Mass/Vol] 87.0 mg/dL Normal 46.8-314.5 [facility] Comment on above: Order Comment: Speci men Type: URINE SPECIMENOrdering Facility: [facility] Address: [address] [place] [address] Performed By: #### U TPR, 92606-4, 20391-8, 32205-2 ####[facility]ATORYCLIA [id number] [place] [address] [place] HIGH SENSITIVITY TROPONIN To n 06-15-2021 HIGH SENSITIVITY TAMIKO 23 ng/L High <12 [facility] Comment on above: Order Comment: Speci men Type: BLOOD SPECIMENOrdering Facility: [facility] Address: [address] [place] [address] Result Comment: When assessing risk for acute [...] day MACE. Performed By: #### P JULIANNE, 10507-1, HSTNT ####[facility] [id number] [address] [place] Lactate (Bld) [Moles/Vol]on 06-15-2021 Lactate [Moles/Vol] 0.8 mmol/L Normal 0.5-2.2 [facility] Comment on above: Order Comment: Speci men Type: BLOOD SPECIMENOrdering Facility: [facility] Address: [address] [place] [address] Performed By: #### 3 2693-4 ####[facility]CL[facility] [id number] [place] [address] [place] Magnesium SerPl-mCncon 06-15 Magnesium [Mass/Vol] 3.0 mg/dL High 1.7-2.3 [facility] Comment on above: Order Comment: Speci men Type: BLOOD SPECIMEN Performed By: #### 2 4321-2, 2777-1, 98276-4 ####[facility]ATORYCLIA [id number] [place] [address] [place] NT-proBNP SerPl-mCncon 06-15 Natriuretic peptide.B prohormone N-Terminal [Mass/Vol] 265 pg/mL High <125 [facility] Comment on above: Order Comment: Speci men Type: BLOOD SPECIMENOrdering Facility: [facility] Address: [address] [place] [address] Performed By: #### P SHANTELLAL, 39032-9, HSTNT ####[facility]ATORYCLIA [id number] [address] [place] Osmolality Uron 06-15-2021 Osmolality (U) [Osmolality] 606 mosm/kg Normal 50-1,200 [facility] Comment on above: Order Comment: Speci men Type: URINE SPECIMENOrdering Facility: [facility] Address: [address] [place] [address] Performed By: #### 2 695-5 ####[facility] CRAWFORDSVILLEIA [id number] [address] [place] PROCALCITONIN (LAB)on 2021 Procalcitonin [Mass/Vol] 0.21 ng/mL High <0.09 [facility] Comment on above: Order Comment: Speci men Type: BLOOD SPECIMENOrdering Facility: [facility] Address: [address] [place] [address] Result Comment: For a guided interpretation of test results, please visit the Change in Procalcitonin Calculator, [email or web address] - [employer]. Performed By: #### P JULIANNE, 2951-2 ####[facility]ORATORYCLIA [id number] [address] [place] Procalcitonin [Mass/Vol] 0.17 ng/mL High <0.09 [facility] Comment on above: Order Comment: Speci men Type: BLOOD SPECIMENOrdering Facility: [facility] Address: [address] [place] [address] Result Comment: For a guided interpretation of test results, please visit the Change in Procalcitonin Calculator, [email or web address]. Performed By: #### P ROCAL, 74369-0, HSTNT ####[facility]ATORYCLIA [id number] [place] [address] [place] PROTEIN RANDOM URon 06-15-19 22 Protein (U) [Mass/Vol] 175 mg/dL High 0-20 [facility] Comment on above: Order Comment: Speci men Type: URINE SPECIMENOrdering Facility: [facility] Address: [address] [place] [address] Performed By: #### U TPR, 90337-5, 47500-1, 57192-4 ####[facility]ORATORYCLIA [id number] [address] [place] PT panel Coag (PPP)on 2021 INR Coag (PPP) [Relative time] 1.1 {INR} Normal <1.4 [facility] Comment on above: Order Comment: Speci men Type: BLOOD SPECIMENOrdering Facility: [facility] Address: [address] [place] [address] Result Comment: Yris min K Antagonist (VKA) Therapeutic Range: INR 2 to 3 (Target INR of 2.5)Note: For patients treated with VKA drugs, such as warfarin, the [place] [employer] 2012 Guideline recommends [...] al. Chest 2012, 141:7S-47SNishimura RA, et al. [facility] 2017, 70: 252-289 Performed By: #### 3 4528-0, 74827-7 ####[facility]ATORYCLIA [id number] [address] [place] PT Coag (PPP) [Time] 11.4 s Normal <13.1 [facility] Comment on above: Order Comment: Speci men Type: BLOOD SPECIMENOrdering Facility: [facility] Address: [address] [place] [address] Performed By: #### 3 4528-0, 89208-2 ####[facility]ORYCLIA [id number] [place] [address] [place] Phosphate SerPl-mCncon 06-15 Phosphate [Mass/Vol] 2.6 mg/dL Low 2.7-4.8 [facility] Comment on above: Order Comment: Speci men Type: BLOOD SPECIMEN Performed By: #### 2 4321-2, 2777-1, 03901-3 ####[facility]ATORYCLIA [id number] [place] [address] [place] Sodium ?Tm Ur-sCncon 022 Sodium Unsp time (U) [Moles/Vol] 34 mmol/L Normal 14-216 [facility] Comment on above: Order Comment: Speci men Type: URINE SPECIMENOrdering Facility: [facility] Address: [address] [place] [address] Performed By: #### U TPR, 51045-5, 08333-0, 44085-1 ####[facility]NACLIA [id number] [place] [address] [place] Sodium SerPl-sCncon 06-15-19 22 Sodium [Moles/Vol] 159 mmol/L High 136-144 [facility] Comment on above: Order Comment: Speci men Type: BLOOD SPECIMENOrdering Facility: [facility] Address: [address] [place] [address] Performed By: #### P SHANTELLAL, 2951-2 ####[facility]ATORYCLIA [id number] [place] [address] [place] THERAPY NTon 06-15-2021 THERAPY NT Normal [facility] Urinalysis complete panel (U )on 06-15-2021 Bacteria LM.HPF (Urine sed) [#/Area] None Seen Normal None Seen [facility] Comment on above: Order Comment: Speci men Type: URINE SPECIMENOrdering Facility: [facility] Address: [address] [place] [address] Performed By: #### 2 4356-8 ####[facility]ATORYCLIA [id number] [address] [place] Bilirubin Ql (U) Negative Normal Negative [facility] Comment on above: Order Comment: Speci men Type: URINE SPECIMENOrdering Facility: [facility] Address: [address] [place] [address] Performed By: #### 2 4356-8 ####[facility]ORYCLIA [id number] [address] Clarity (Unsp spec) Cloudy Abnormal Clear [facility] Comment on above: Order Comment: Speci men Type: URINE SPECIMENOrdering Facility: [facility] Address: [address] [place] [address] Performed By: #### 2 4356-8 ####[facility]ORYCLIA [id number] [address] Color (U) Yellow Normal Yellow [facility] Comment on above: Order Comment: Speci men Type: URINE SPECIMENOrdering Facility: [facility] Address: [address] [place] [address] Performed By: #### 2 4356-8 ####[facility]ATORYCLIA [id number] [address] Epithelial cells LM.HPF (Urine sed) [#/Area] 7.1 /[HPF] Normal [facility] Comment on above: Order Comment: Speci men Type: URINE SPECIMENOrdering Facility: [facility] Address: [address] [place] [address] Performed By: #### 2 4356-8 ####[facility]ORYCLIA [id number] [address] [place] Glucose Test strip (U) [Mass/Vol] Negative Normal Negative [facility] Comment on above: Order Comment: Speci men Type: URINE SPECIMENOrdering Facility: [facility] Address: [address] [place] [address] Performed By: #### 2 4356-8 ####[facility]ATORYCLIA [id number] [address] Granular casts (Urine sed) [#/Area] /[LPF] Abnormal 0 /LPF [facility] Comment on above: Order Comment: Speci men Type: URINE SPECIMENOrdering Facility: [facility] Address: [address] [place] [address] Performed By: #### 2 4356-8 ####[facility]ATORYCLIA [id number] [address] Hemoglobin Ql (U) Moderate Abnormal Negative [facility] Comment on above: Order Comment: Speci men Type: URINE SPECIMENOrdering Facility: [facility] Address: [address] [place] [address] Performed By: #### 2 4356-8 ####[facility]ORYCLIA [id number] [address] Hyaline casts (Urine sed) [#/Area] /[LPF] Abnormal 0 /LPF [facility] Comment on above: Order Comment: Speci men Type: URINE SPECIMENOrdering Facility: [facility] Address: [address] [place] [address] Performed By: #### 2 4356-8 ####[facility]ORYCLIA [id number] [address] Ketones Ql (U) Negative Normal Negative [facility] Comment on above: Order Comment: Speci men Type: URINE SPECIMENOrdering Facility: [facility] Address: [address] [place] [address] Performed By: #### 2 4356-8 ####[facility]ORYCLIA [id number] [address] [place] Leukocyte esterase Test strip Ql (U) Negative Normal Negative [facility] Comment on above: Order Comment: Speci men Type: URINE SPECIMENOrdering Facility: [facility] Address: [address] [place] [address] Performed By: #### 2 4356-8 ####[facility]ATORYCLIA [id number] [place] [address] [place] Nitrite Ql (U) Negative Normal Negative [facility] Comment on above: Order Comment: Speci men Type: URINE SPECIMENOrdering Facility: [facility] Address: [address] [place] [address] Performed By: #### 2 4356-8 ####[facility]ORYCLIA [id number] [address] pH (U) 6.0 [pH] Normal 5.0-8.0 [facility] Comment on above: Order Comment: Speci men Type: URINE SPECIMENOrdering Facility: [facility] Address: [address] [place] [address] Performed By: #### 2 4356-8 ####[facility]ATORYCLIA [id number] [address] STATES [facility] Protein (U) [Mass/Vol] 100 mg/dL Abnormal Negative [facility] Comment on above: Order Comment: Speci men Type: URINE SPECIMENOrdering Facility: [facility] Address: [address] [place] [address] Performed By: #### 2 4356-8 ####[facility]ORYCLIA [id number] [address] [place] RBC LM.HPF (Urine sed) [#/Area] 0-3 /HPF Normal 0-3 /HPF [facility] Comment on above: Order Comment: Speci men Type: URINE SPECIMENOrdering Facility: [facility] Address: [address] [place] [address] Performed By: #### 2 4356-8 ####[facility]ATORYCLIA [id number] [address] [place] Specific gravity (U) [Rel density] 1.024 Normal 1.005-1.030 [facility] Comment on above: Order Comment: Speci men Type: URINE SPECIMENOrdering Facility: [facility] Address: [address] [place] [address] Performed By: #### 2 4356-8 ####[facility]ATORYCLIA [id number] [address] Urobilinogen Ql (U) 0.2 EU/dL Normal 0.2-1.0 EU/dL [facility] Comment on above: Order Comment: Speci men Type: URINE SPECIMENOrdering Facility: [facility] Address: [address] [place] [address] Performed By: #### 2 4356-8 ####[facility]ATORYCLIA [id number] [address] WBC LM.HPF (Urine sed) [#/Area] 0-5 /HPF Normal 0-5 /HPF [facility] Comment on above: Order Comment: Speci men Type: URINE SPECIMENOrdering Facility: [facility] Address: [address] [place] [address] Performed By: #### 2 4356-8 ####[facility]ORATORYCLIA [id number] [address] XR CHEST 1V FRONTALon 2021 XR CHEST 1V FRONTAL Normal [facility] XR CHEST 1V FRONTAL PORTon 0 06-15-2021 XR CHEST 1V FRONTAL PORT Normal [facility] XR CHEST 1V FRONTAL PORT Normal [facility] aPTT PPPon 06-15-2021 aPTT Coag (PPP) [Time] 30.9 s Normal 23.0-32.4 [facility] Comment on above: Order Comment: Speci men Type: BLOOD SPECIMENOrdering Facility: [facility] Address: [address] [place] [address] Performed By: #### 3 4528-0, 99656-4 ####[facility] LABORATORYCLIA [id number] [address] [place] Basic metabolic 2000 panelon 06-14-2021 Anion gap [Moles/Vol] 8 mmol/L Low 9-18 [facility] Comment on above: Order Comment: Speci men Type: BLOOD SPECIMEN Performed By: #### 2 4321-2, 7-1, ####[facility]ORATORYCLIA [id number] [place], [place] [address] [place] [address] [place] Calcium [Mass/Vol] 8.9 mg/dL Normal 8.5-10.2 [facility] Comment on above: Order Comment: Speci men Type: BLOOD SPECIMEN Performed By: #### 2 4321-2, 2776-, ####[facility]ORATORYCLIA [id number] [address] STATES OF [facility] Chloride [Moles/Vol] 121 mmol/L High 97-105 [facility] Comment on above: Order Comment: Speci men Type: BLOOD SPECIMEN Performed By: #### 2 4321-2, 2776-05, ####[facility]ORATORYCLIA [id number] [address] [place] CO2 [Moles/Vol] 30 mmol/L Normal 22-30 [facility] Comment on above: Order Comment: Speci men Type: BLOOD SPECIMEN Performed By: #### 2 4321-2, 2776-05, ####[facility]ORATORYCLIA [id number] [place] [address] [place] Creatinine [Mass/Vol] 0.78 mg/dL Normal 0.73-1.22 [facility] Comment on above: Order Comment: Speci men Type: BLOOD SPECIMEN Performed By: #### 2 4321-2, 2776-, ####[facility]ATORYCLIA [id number] [address] [place] GFR/1.73 sq M.predicted MDRD (S/P/Bld) [Vol rate/Area] mL/min/{1.73_m2} Normal [facility] Comment on above: Order Comment: Speci [...] GFR. Performed By: #### 2 4321-2, 2777-, ####[facility]ATORYCLIA [id number] [place] [address] [place] Glucose [Mass/Vol] 132 mg/dL High 74-99 [facility] Comment on above: Order Comment: [facility] Type: BLOOD SPECIMEN Result Comment: The [place] [employer] (ADA) provides guidance for cutoff [...] Standards of Medical Care in Diabetes 2016, [place] [employer]. Diabetes Care. 2016.39(Suppl 1). Performed By: #### 2 4321-2, 2777-, ####[facility]ORATORYCLIA [id number] [place] [id number] [place] Potassium [Moles/Vol] 3.7 mmol/L Normal 3.7-5.1 [facility] Comment on above: Order Comment: [facility] Type: BLOOD SPECIMEN Performed By: #### 2 4321-2, 277-, ####[facility]ATORYCLIA [id number] [place] [address] [facility] Sodium [Moles/Vol] 159 mmol/L High 136-144 [facility] Comment on above: Order Comment: Speci men Type: BLOOD SPECIMEN Performed By: #### 2 4321-2, 2777-1, ####[facility]ATORYCLIA [id number] [place], [place] [address] [place] [address] Urea nitrogen [Mass/Vol] 35 mg/dL High 9-24 [facility] Comment on above: Order Comment: Speci men Type: BLOOD SPECIMEN Performed By: #### 2 4321-2, 2776-, ####[facility]ATORYCLIA [id number] [address] CASE MANAGEMon 06-14-2021 CASE MANAGEM Normal [facility] CBC panel Auto (Bld)on 06-14 Erythrocyte distribution width (RBC) [Ratio] 16.2 % High 11.5-15.0 [facility] Comment on above: Order Comment: Speci men Type: BLOOD SPECIMEN Performed By: #### 5 8410-2 ####[facility]ORATORYCLIA [id number] [address] Hematocrit (Bld) [Volume fraction] 35.2 % Low 39.0-51.0 [facility] Comment on above: Order Comment: Speci men Type: BLOOD SPECIMEN Performed By: #### 5 8410-2 ####[facility]ATORYCLIA [id number] [address] Hemoglobin (Bld) [Mass/Vol] 10.1 g/dL Low 13.0-17.0 [facility] Comment on above: Order Comment: Speci men Type: BLOOD SPECIMEN Performed By: #### 5 8410-2 ####[facility]ATORYCLIA [id number] [address] [place] MCH (RBC) [Entitic mass] 27.2 pg Normal 26.0-34.0 [facility] Comment on above: Order Comment: Speci men Type: BLOOD SPECIMEN Performed By: #### 5 8410-2 ####[facility]ATORYCLIA [id number] [address] MCHC (RBC) [Mass/Vol] 28.7 g/dL Low 30.5-36.0 [facility] Comment on above: Order Comment: Speci men Type: BLOOD SPECIMEN Performed By: #### 5 8410-2 ####[facility]ATORYCLIA [id number] [address] MCV (RBC) [Entitic vol] 94.6 fL Normal 80.0-100.0 [facility] Comment on above: Order Comment: Speci men Type: BLOOD SPECIMEN Performed By: #### 5 8410-2 ####[facility]ATORYCLIA [id number] [address] Nucleated RBC (Bld) [#/Vol] 10*3/uL Normal <0.01 [facility] Comment on above: Order Comment: Speci men Type: BLOOD SPECIMEN Performed By: #### 5 8410-2 ####[facility]ATORYCLIA [id number] [address] Platelet mean volume (Bld) [Entitic vol] 11.0 fL Normal 9.0-12.7 [facility] Comment on above: Order Comment: Speci men Type: BLOOD SPECIMEN Performed By: #### 5 8410-2 ####[facility]ATORYCLIA [id number] [address] Platelets (Bld) [#/Vol] 287 10*3/uL Normal 150-400 [facility] Comment on above: Order Comment: Speci men Type: BLOOD SPECIMEN Performed By: #### 5 8410-2 ####[facility]ATORYCLIA [id number] [address] RBC (Bld) [#/Vol] 3.72 10*6/uL Low 4.20-6.00 [facility] Comment on above: Order Comment: Speci men Type: BLOOD SPECIMEN Performed By: #### 5 8410-2 ####[facility]ATORYCLIA [id number] [address] WBC (Bld) [#/Vol] 12.23 10*3/uL High 3.70-11.00 [facility] Comment on above: Order Comment: Speci men Type: BLOOD SPECIMEN Performed By: #### 5 8410-2 ####[facility]ORATORYCLIA [id number] [address] Comprehensive metabolic 2000 panelon 06-14-2021 Albumin [Mass/Vol] 3.1 g/dL Low 3.9-4.9 [facility] Comment on above: Order Comment: Speci men Type: BLOOD SPECIMEN Performed By: #### 2 4323-8, HSTNT, 2776-05, ####[facility]ORATORYCLIA [id number] [address] ALP [Catalytic activity/Vol] 72 U/L Normal 38-113 [facility] Comment on above: Order Comment: Speci men Type: BLOOD SPECIMEN Performed By: #### 2 4323-8, HSTNT, 2776-05, ####[facility]ATORYCLIA [id number] [address] ALT With P-5'-P [Catalytic activity/Vol] 57 U/L High 10-54 [facility] Comment on above: Order Comment: Speci men Type: BLOOD SPECIMEN Performed By: #### 2 4323-8, HSTNT, 2776-05, ####[facility]ATORYCLIA [id number] [address] Anion gap [Moles/Vol] 9 mmol/L Normal 9-18 [facility] Comment on above: Order Comment: Speci men Type: BLOOD SPECIMEN Performed By: #### 2 4323-8, HSTNT, 2776-05, ####[facility]ATORYCLIA [id number] [place], [place] [address] [place] [address] [place] AST With P-5'-P [Catalytic activity/Vol] 33 U/L Normal 14-40 [facility] Comment on above: Order Comment: Speci men Type: BLOOD SPECIMEN Performed By: #### 2 4323-8, HSTNT, 2776-05, ####[facility]ATORYCLIA [id number] [place], [place] [address] [place] [address] [place] [facility] Bilirubin [Mass/Vol] 0.5 mg/dL Normal 0.2-1.3 [facility] Comment on above: Order Comment: Speci men Type: BLOOD SPECIMEN Performed By: #### 2 4323-8, HSTNT, 2776-05, ####[facility]ATORYCLIA [id number] [address] STATES OF [facility] Calcium [Mass/Vol] 8.8 mg/dL Normal 8.5-10.2 [facility] Comment on above: Order Comment: Speci men Type: BLOOD SPECIMEN Performed By: #### 2 4323-8, HSTNT, 2776-05, ####[facility]ATORYCLIA [id number] [address] [place] Chloride [Moles/Vol] 124 mmol/L High 97-105 [facility] Comment on above: Order Comment: Speci men Type: BLOOD SPECIMEN Performed By: #### 2 4323-8, HSTNT, 2776-05, ####[facility]ATORYCLIA [id number] [place] [address] [place] CO2 [Moles/Vol] 29 mmol/L Normal 22-30 [facility] Comment on above: Order Comment: Speci men Type: BLOOD SPECIMEN Performed By: #### 2 4323-8, HSTNT, 2776-05, ####[facility]ATORYCLIA [id number] [address] [place] Creatinine [Mass/Vol] 0.73 mg/dL Normal 0.73-1.22 [facility] Comment on above: Order Comment: Speci men Type: BLOOD SPECIMEN Performed By: #### 2 4323-8, HSTNT, 2776-05, ####[facility]ATORYCLIA [id number] [address] [place] GFR/1.73 sq M.predicted MDRD (S/P/Bld) [Vol rate/Area] mL/min/{1.73_m2} Normal [facility] Comment on above: Order Comment: Speci [...] Performed By: #### 2 4323-8, HSTNT, 2776-05, ####[facility]ATORYCLIA [id number] [address] [place] Glucose [Mass/Vol] 137 mg/dL High 74-99 [facility] Comment on above: Order Comment: Speci men Type: BLOOD SPECIMEN Result Comment: The [place] [employer] (ADA) provides guidance for cutoff [...] Standards of Medical Care in Diabetes 2016, [place] [employer]. Diabetes Care. 2016.39(Suppl 1). Performed By: #### 2 4323-8, HSTNT, 2776-05, ####[facility]ORATORYCLIA [id number] [place], [place] [address] [place] [address] [place] [facility] Potassium [Moles/Vol] 3.6 mmol/L Low 3.7-5.1 [facility] Comment on above: Order Comment: Speci men Type: BLOOD SPECIMEN Performed By: #### 2 4323-8, HSTNT, 2776-05, ####[facility]ATORYCLIA [id number] [address] STATES [facility] Protein [Mass/Vol] 5.9 g/dL Low 6.3-8.0 [facility] Comment on above: Order Comment: Speci men Type: BLOOD SPECIMEN Performed By: #### 2 4323-8, HSTNT, 2776-05, ####[facility]ATORYCLIA [id number] [address] STATES [facility] Sodium [Moles/Vol] 162 mmol/L High 136-144 [facility] Comment on above: Order Comment: Speci men Type: BLOOD SPECIMEN Performed By: #### 2 4323-8, HSTNT, 2776-05, ####[facility]ATORYCLIA [id number] [address] [place] Urea nitrogen [Mass/Vol] 33 mg/dL High 9-24 [facility] Comment on above: Order Comment: Speci men Type: BLOOD SPECIMEN Performed By: #### 2 4323-8, HSTNT, 2776-05, ####[facility]ORATORYCLIA [id number] [address] [place] HIGH SENSITIVITY TROPONIN To n 06-14-2021 HIGH SENSITIVITY TAMIKO 22 ng/L High <12 [facility] Comment on above: Order Comment: Speci men [...] day MACE. Performed By: #### H STNT ####[facility]ORATORYCLIA [id number] [address] HIGH SENSITIVITY TAMIKO 22 ng/L High <12 [facility] Comment on above: Order Comment: Speci men [...] Performed By: #### 2 4323-8, HSTNT, 2776-05, ####[facility]ATORYCLIA [id number] [address] [place] Magnesium SerPl-mCncon 06-14 Magnesium [Mass/Vol] 2.9 mg/dL High 1.7-2.3 [facility] Comment on above: Order Comment: Speci men Type: BLOOD SPECIMEN Performed By: #### 2 4323-8, HSTNT, 2776-05, ####[facility]ATORYCLIA [id number] [address] Magnesium [Mass/Vol] 3.0 mg/dL High 1.7-2.3 [facility] Comment on above: Order Comment: Speci men Type: BLOOD SPECIMEN Performed By: #### 2 4321-2, 2776-05, ####[facility]ATORYCLIA [id number] [address] [place] NURSING PROGon 06-14-2021 NURSING PROG Normal [facility] NUTRITIONon 06-14-2021 NUTRITION Normal [facility] Phosphate SerPl-mCncon 06-14 Phosphate [Mass/Vol] 2.4 mg/dL Low 2.7-4.8 [facility] Comment on above: Order Comment: Speci men Type: BLOOD SPECIMEN Performed By: #### 2 4323-8, HSTNT, 2776-05, ####[facility]ATORYCLIA [id number] [place], [place] [address] [place] [address] [place] [address] [facility] Phosphate [Mass/Vol] 3.2 mg/dL Normal 2.7-4.8 [facility] Comment on above: Order Comment: Speci men Type: BLOOD SPECIMEN Performed By: #### 2 4321-2, 2776-05, ####[facility]ATORYCLIA [id number] [address] [place] THERAPY NTon 06-14-2021 THERAPY NT Normal [facility] THERAPY NT Normal [facility] THERAPY NT Normal [facility] US DVT LOWER BILon US DVT LOWER RAINER Normal [facility] ALLIED HEALTHon 06-13-2021 ALLIED HEALTH Normal [facility] Basic metabolic 2000 panelon 06-13-2021 Anion gap [Moles/Vol] 7 mmol/L Low 9-18 [facility] Comment on above: Order Comment: Speci men Type: BLOOD SPECIMEN Performed By: #### 2 4321-2, , 2776-05 ####[facility]ORATORYCLIA [id number] [place] [address] [place] Calcium [Mass/Vol] 8.8 mg/dL Normal 8.5-10.2 [facility] Comment on above: Order Comment: Speci men Type: BLOOD SPECIMEN Performed By: #### 2 4321-2, , 2776-05 ####[facility]ATORYCLIA [id number] [place] [address] [place] Chloride [Moles/Vol] 120 mmol/L High 97-105 [facility] Comment on above: Order Comment: Speci men Type: BLOOD SPECIMEN Performed By: #### 2 4321-2, , 2776-05 ####[facility]ATORYCLIA [id number] [place], [place] [address] [place] [address] [place] [facility] CO2 [Moles/Vol] 28 mmol/L Normal 22-30 [facility] Comment on above: Order Comment: Speci men Type: BLOOD SPECIMEN Performed By: #### 2 4321-2, , 2776-05 ####[facility]ATORYCLIA [id number] [place], [place] [address] [place] [address] [place] Creatinine [Mass/Vol] 0.78 mg/dL Normal 0.73-1.22 [facility] Comment on above: Order Comment: Speci men Type: BLOOD SPECIMEN Performed By: #### 2 4321-2, , 2776-05 ####[facility]ATORYCLIA [id number] [address] [place] GFR/1.73 sq M.predicted MDRD (S/P/Bld) [Vol rate/Area] mL/min/{1.73_m2} Normal [facility] Comment on above: Order Comment: Speci [...] Performed By: #### 2 4321-2, , 2776-05 ####[facility]ORATORYCLIA [id number] [place] [id number] [place] Glucose [Mass/Vol] 126 mg/dL High 74-99 [facility] Comment on above: Order Comment: Speci men Type: BLOOD SPECIMEN Result Comment: The [place] [employer] (ADA) provides guidance for cutoff [...] Standards of Medical Care in Diabetes 2016, [place] [employer]. Diabetes Care. 2016.39(Suppl 1). Performed By: #### 2 1-2, , 2776-05 ####[facility]ORATORYCLIA [id number] [place] [address] [place] Potassium [Moles/Vol] 3.6 mmol/L Low 3.7-5.1 [facility] Comment on above: Order Comment: Speci men Type: BLOOD SPECIMEN Performed By: #### 2 4320-2, , 2776-05 ####[facility]ATORYCLIA [id number] [address] [place] Sodium [Moles/Vol] 155 mmol/L High 136-144 [facility] Comment on above: Order Comment: Speci men Type: BLOOD SPECIMEN Performed By: #### 2 1-2, , 2776-05 ####[facility]ATORYCLIA [id number] [place] [address] [place] Urea nitrogen [Mass/Vol] 36 mg/dL High 9-24 [facility] Comment on above: Order Comment: Speci men Type: BLOOD SPECIMEN Performed By: #### 2 1-2, , 2776-05 ####[facility]ATORYCLIA [id number] [place] [address] [place] Anion gap [Moles/Vol] 6 mmol/L Low 9-18 [facility] Comment on above: Order Comment: Speci men Type: BLOOD SPECIMEN Performed By: #### 2 4321-2, 2776-05, ####[facility]ATORYCLIA [id number] [place], [place] [address] [place] [address] [place] [address] [facility] Calcium [Mass/Vol] 6.5 mg/dL Low 8.5-10.2 [facility] Comment on above: Order Comment: Speci men Type: BLOOD SPECIMEN Performed By: #### 2 4321-2, 2776-05, ####[facility]ATORYCLIA [id number] [place], [place] [address] [place] [address] [place] Chloride [Moles/Vol] 124 mmol/L High 97-105 [facility] Comment on above: Order Comment: Speci men Type: BLOOD SPECIMEN Performed By: #### 2 4321-2, 2776-05, ####[facility]ATORYCLIA [id number] [address] [place] CO2 [Moles/Vol] 24 mmol/L Normal 22-30 [facility] Comment on above: Order Comment: Speci men Type: BLOOD SPECIMEN Performed By: #### 2 4321-2, 2776-05, ####[facility]ATORYCLIA [id number] [address] [place] Creatinine [Mass/Vol] 0.61 mg/dL Low 0.73-1.22 [facility] Comment on above: Order Comment: Speci men Type: BLOOD SPECIMEN Performed By: #### 2 4321-2, 2776-05, ####[facility]ATORYCLIA [id number] [place] [address] [place] GFR/1.73 sq M.predicted MDRD (S/P/Bld) [Vol rate/Area] mL/min/{1.73_m2} Normal [facility] Comment on above: Order Comment: Speci men Type: BLOOD SPECIMEN Result Comment: >60e GFR (Estimated GFR) Units of measure: mL/min/1.73 meters squaredeGFR is derived from the reexpressed MDRD Study equation using the following parameters: serum creatinine, age, gender and race. The creatinine assay has been calibrated to be traceable to [place]. An eGFR <60 mL/min/1.73m2 for >3 months is consistent with chronic kidney disease. Refer to KDOQI guidelines for clinical interpretation. In patients with unstable renal function, e.g. those with acute kidney injury, the eGFR may not accurately reflect actual GFR. Performed By: #### 2 4321-2, 2776-05, ####[facility]ORATORYCLIA [id number] [place] [address] [place] Glucose [Mass/Vol] 100 mg/dL High 74-99 [facility] Comment on above: Order Comment: Speci men Type: BLOOD SPECIMEN Result Comment: The [place] Diabetes [employer] (ADA) provides guidance for cutoff [...] Standards of Medical Care in Diabetes 2016, [place] [employer]. Diabetes Care. 2016.39(Suppl 1). Performed By: #### 2 4321-2, 2776-05, ####[facility]ORATORYCLIA [id number] [place] [id number] [place] Potassium [Moles/Vol] 2.7 mmol/L Low 3.7-5.1 [facility] Comment on above: Order Comment: Speci men Type: BLOOD SPECIMEN Performed By: #### 2 4321-2, 2776-05, ####[facility]ATORYCLIA [id number] [place] [address] [place] Sodium [Moles/Vol] 154 mmol/L High 136-144 [facility] Comment on above: Order Comment: Speci men Type: BLOOD SPECIMEN Performed By: #### 2 4321-2, 2777-1, ####[facility]ATORYCLIA [id number] [address] Urea nitrogen [Mass/Vol] 29 mg/dL High 9-24 [facility] Comment on above: Order Comment: Speci men Type: BLOOD SPECIMEN Performed By: #### 2 4321-2, 2777-, ####[facility]ATORYCLIA [id number] [address] CASE MANAGEMon 06-13-2021 CASE MANAGEM Normal [facility] CBC panel Auto (Bld)on 06-13 Erythrocyte distribution width (RBC) [Ratio] 15.9 % High 11.5-15.0 [facility] Comment on above: Order Comment: Speci men Type: BLOOD SPECIMEN Performed By: #### 5 8410-2 ####[facility]ATORYCLIA [id number] [address] Hematocrit (Bld) [Volume fraction] 34.3 % Low 39.0-51.0 [facility] Comment on above: Order Comment: Speci men Type: BLOOD SPECIMEN Performed By: #### 5 8410-2 ####[facility]ATORYCLIA [id number] [address] Hemoglobin (Bld) [Mass/Vol] 9.9 g/dL Low 13.0-17.0 [facility] Comment on above: Order Comment: Speci men Type: BLOOD SPECIMEN Performed By: #### 5 8410-2 ####[facility]ATORYCLIA [id number] [address] MCH (RBC) [Entitic mass] 27.3 pg Normal 26.0-34.0 [facility] Comment on above: Order Comment: Speci men Type: BLOOD SPECIMEN Performed By: #### 5 8410-2 ####[facility]ATORYCLIA [id number] [address] MCHC (RBC) [Mass/Vol] 28.9 g/dL Low 30.5-36.0 [facility] Comment on above: Order Comment: Speci men Type: BLOOD SPECIMEN Performed By: #### 5 8410-2 ####[facility]ORYCLIA [id number] [address] MCV (RBC) [Entitic vol] 94.5 fL Normal 80.0-100.0 [facility] Comment on above: Order Comment: Speci men Type: BLOOD SPECIMEN Performed By: #### 5 8410-2 ####[facility]ORYCLIA [id number] [address] Nucleated RBC (Bld) [#/Vol] 10*3/uL Normal <0.01 [facility] Comment on above: Order Comment: Speci men Type: BLOOD SPECIMEN Performed By: #### 5 8410-2 ####[facility]ORYCLIA [id number] [address] Platelet mean volume (Bld) [Entitic vol] 11.3 fL Normal 9.0-12.7 [facility] Comment on above: Order Comment: Speci men Type: BLOOD SPECIMEN Performed By: #### 5 8410-2 ####[facility]ORYCLIA [id number] [address] Platelets (Bld) [#/Vol] 269 10*3/uL Normal 150-400 [facility] Comment on above: Order Comment: Speci men Type: BLOOD SPECIMEN Performed By: #### 5 8410-2 ####[facility]ORYCLIA [id number] [address] RBC (Bld) [#/Vol] 3.63 10*6/uL Low 4.20-6.00 [facility] Comment on above: Order Comment: Speci men Type: BLOOD SPECIMEN Performed By: #### 5 8410-2 ####[facility]ATORYCLIA [id number] [address] OF [facility] WBC (Bld) [#/Vol] 12.77 10*3/uL High 3.70-11.00 [facility] Comment on above: Order Comment: Speci men Type: BLOOD SPECIMEN Performed By: #### 5 8410-2 ####[facility] LABORATORYCLIA [id number] [address] Gas and Carbon monoxide pane l (BldV)on 06-13-2021 Base excess Calc (BldV) [Moles/Vol] 5.7 mmol/L High 0-2 [facility] Comment on above: Order Comment: Speci men Type: VENOUS BLOOD SPECIMEN Performed By: #### 2 4344-4 ####[facility] LABORATORYCLIA [id number] [address] Body temperature 99.5 [degF] Normal [facility] Comment on above: Order Comment: Speci men Type: VENOUS BLOOD SPECIMEN Performed By: #### 2 4344-4 ####[facility] LABORATORYCLIA [id number] [address] CALCIUM IONIZED, PH CORRECTED 1.24 mmol/L Normal 1.08-1.30 [facility] Comment on above: Order Comment: Speci men Type: VENOUS BLOOD SPECIMEN Performed By: #### 2 4344-4 ####[facility] LABORATORYCLIA [id number] [address] Calcium.ionized (BldV) [Mass/Vol] 1.23 mmol/L Normal 1.08-1.30 [facility] Comment on above: Order Comment: Speci men Type: VENOUS BLOOD SPECIMEN Performed By: #### 2 4344-4 ####[facility]ORATORYCLIA [id number] [address] Carboxyhemoglobin (BldV) [Mass fraction] 1.2 % Normal 0.0-2.0 [facility] Comment on above: Order Comment: Speci men Type: VENOUS BLOOD SPECIMEN Result Comment: Carb oxyhemoglobin Reference Range for Smokers: 2.0-8.0% Performed By: #### 2 4344-4 ####[facility]ORYCLIA [id number] [address] CO2 (BldV) [Partial pressure] 48 mm[Hg] Normal 42-55 [facility] Comment on above: Order Comment: Speci men Type: VENOUS BLOOD SPECIMEN Performed By: #### 2 4344-4 ####[facility]ORYCLIA [id number] [address] CO2 [Moles/Vol] 28.2 mmol/L Normal 25-29 [facility] Comment on above: Order Comment: Speci men Type: VENOUS BLOOD SPECIMEN Performed By: #### 2 4344-4 ####[facility]ORYCLIA [id number] [address] CO2 adjusted to patient's actual temperature (BldV) [Partial pressure] 49 mmHg Normal 42-55 [facility] Comment on above: Order Comment: Speci men Type: VENOUS BLOOD SPECIMEN Performed By: #### 2 4344-4 ####[facility]ORYCLIA [id number] [address] Glucose [Mass/Vol] 131 mg/dL High 60-105 [facility] Comment on above: Order Comment: Speci men Type: VENOUS BLOOD SPECIMEN Performed By: #### 2 4344-4 ####[facility]ORYCLIA [id number] [address] OF [facility] HCO3 (Bld) [Moles/Vol] 30.6 mmol/L High 24-28 [facility] Comment on above: Order Comment: Speci men Type: VENOUS BLOOD SPECIMEN Performed By: #### 2 4344-4 ####[facility]ORYCLIA [id number] [address] Hematocrit (Bld) [Volume fraction] 32.8 % Low 39.0-51.0 [facility] Comment on above: Order Comment: Speci men Type: VENOUS BLOOD SPECIMEN Performed By: #### 2 4344-4 ####[facility]ATORYCLIA [id number] [place], [place] [address] [place] [address] [place] Hemoglobin (Bld) [Mass/Vol] 10.6 g/dL Low 13.0-17.0 [facility] Comment on above: Order Comment: Speci men Type: VENOUS BLOOD SPECIMEN Performed By: #### 2 4344-4 ####[facility]ORYCLIA [id number] [address] OF [place] LITERS 6 Liters/min Normal [facility] Comment on above: Order Comment: Speci men Type: VENOUS BLOOD SPECIMEN Performed By: #### 2 4344-4 ####[facility]ORYCLIA [id number] [address] Methemoglobin (Bld) [Mass fraction] 1.0 % Normal 0.0-1.5 [facility] Comment on above: Order Comment: Speci men Type: VENOUS BLOOD SPECIMEN Performed By: #### 2 4344-4 ####[facility]ORYCLIA [id number] [address] OF [place] O2 THERAPY NC = Nasal Cannula Normal [facility] Comment on above: Order Comment: Speci men Type: VENOUS BLOOD SPECIMEN Performed By: #### 2 4344-4 ####[facility]ATORYCLIA [id number] [place], [place] [id number] [place] [address] OF [place] Oxygen (BldV) [Partial pressure] 42 mm[Hg] Normal 35-45 [facility] Comment on above: Order Comment: Speci men Type: VENOUS BLOOD SPECIMEN Performed By: #### 2 4344-4 ####[facility]ORYCLIA [id number] [address] OF [place] Oxygen adjusted to patient's actual temperature (BldV) [Partial pressure] 43.8 mmHg Normal 35-45 [facility] Comment on above: Order Comment: Speci men Type: VENOUS BLOOD SPECIMEN Performed By: #### 2 4344-4 ####[facility]ORYCLIA [id number] [address] Oxygen saturation in Blood 76.7 % Normal 60-85 [facility] Comment on above: Order Comment: Speci men Type: VENOUS BLOOD SPECIMEN Performed By: #### 2 4344-4 ####[facility]ATORYCLIA [id number] [address] Oxyhemoglobin (BldV) [Mass fraction] 75 % Normal 60-85 [facility] Comment on above: Order Comment: Speci men Type: VENOUS BLOOD SPECIMEN Performed By: #### 2 4344-4 ####[facility]ATORYCLIA [id number] [address] pH (BldV) 7.42 [pH] Normal 7.32-7.42 [facility] Comment on above: Order Comment: Speci men Type: VENOUS BLOOD SPECIMEN Performed By: #### 2 4344-4 ####[facility]ATORYCLIA [id number] [address] pH adjusted to patient's actual temperature (BldV) 7.41 Normal 7.32-7.42 [facility] Comment on above: Order Comment: Speci men Type: VENOUS BLOOD SPECIMEN Performed By: #### 2 4344-4 ####[facility]ATORYCLIA [id number] [address] Potassium [Moles/Vol] 3.5 mmol/L Normal 3.5-5.0 [facility] Comment on above: Order Comment: Speci men Type: VENOUS BLOOD SPECIMEN Performed By: #### 2 4344-4 ####[facility]ATORYCLIA [id number] [address] Sodium [Moles/Vol] 157 mmol/L High 136-144 [facility] Comment on above: Order Comment: Speci men Type: VENOUS BLOOD SPECIMEN Performed By: #### 2 4344-4 ####[facility]ATORYCLIA [id number] [address] Magnesium SerPl-mCncon 06-13 Magnesium [Mass/Vol] 3.0 mg/dL High 1.7-2.3 [facility] Comment on above: Order Comment: Speci men Type: BLOOD SPECIMEN Performed By: #### 2 4321-2, , 2776-05 ####[facility]ORYCLIA [id number] [place], [place] [address] [place] [address] [facility] Magnesium [Mass/Vol] 2.2 mg/dL Normal 1.7-2.3 [facility] Comment on above: Order Comment: Speci men Type: BLOOD SPECIMEN Performed By: #### 2 4321-2, 2776-05, ####[facility]ORYCLIA [id number] [address] [facility] Phosphate SerPl-ncon 06-13 Phosphate [Mass/Vol] 2.2 mg/dL Low 2.7-4.8 [facility] Comment on above: Order Comment: Speci men Type: BLOOD SPECIMEN Performed By: #### 2 4321-2, , 2776-05 ####[facility]ORYCLIA [id number] [address] Phosphate [Mass/Vol] 1.8 mg/dL Low 2.7-4.8 [facility] Comment on above: Order Comment: Speci men Type: BLOOD SPECIMEN Performed By: #### 2 4321-2, 2776-05, ####[facility]ATORYCLIA [id number] [address] [place] XR CHEST 1V FRONTALon 2021 XR CHEST 1V FRONTAL Normal [facility] ALLIED HEALTHon 06-12-2021 ALLIED HEALTH Normal [facility] BRIEF OP NOTon 06-12-2021 BRIEF OP NOT Normal [facility] Bacteria Fld Culton 06-12-19 22 Bacteria identified Cx Nom (Body fld) CULTURE, BODY FLD: No growth 5 days GRAM STAIN: No organisms seen Moderate Polymorphonuclear leukocytes Normal [facility] Comment on above: Performed By: #### 6 4 ####[facility]ORATORYCLIA [id number] [place], [place] [address] [place] [address] [place] Basic metabolic 2000 panelon 06-12-2021 Anion gap [Moles/Vol] 6 mmol/L Low 9-18 [facility] Comment on above: Order Comment: Speci men Type: BLOOD SPECIMEN Performed By: #### 2 777-1, 25785-8, ####[facility]ORYCLIA [id number] [address] STATES OF [facility] Calcium [Mass/Vol] 8.7 mg/dL Normal 8.5-10.2 [facility] Comment on above: Order Comment: Speci men Type: BLOOD SPECIMEN Performed By: #### 2 777-1, , ####[facility]ORATORYCLIA [id number] [address] STATES [facility] Chloride [Moles/Vol] 118 mmol/L High 97-105 [facility] Comment on above: Order Comment: Speci men Type: BLOOD SPECIMEN Performed By: #### 2 777-1, , ####[facility]ATORYCLIA [id number] [address] STATES OF [facility] CO2 [Moles/Vol] 28 mmol/L Normal 22-30 [facility] Comment on above: Order Comment: Speci men Type: BLOOD SPECIMEN Performed By: #### 2 777-1, , ####[facility]ORYCLIA [id number] [address] [place] Creatinine [Mass/Vol] 0.77 mg/dL Normal 0.73-1.22 [facility] Comment on above: Order Comment: Speci men Type: BLOOD SPECIMEN Performed By: #### 2 777-1, 22068-7, ####[facility]ORYCLIA [id number] [address] [place] GFR/1.73 sq M.predicted MDRD (S/P/Bld) [Vol rate/Area] mL/min/{1.73_m2} Normal [facility] Comment on above: Order Comment: Speci [...] actual GFR. Performed By: #### 2 777-1, 73993-3, 41535-5 ####[facility]ORATORYCLIA [id number] [place] [address] [place] Glucose [Mass/Vol] 116 mg/dL High 74-99 [facility] Comment on above: Order Comment: Speci men Type: BLOOD SPECIMEN Result Comment: The [place] [employer] (ADA) provides guidance for cutoff [...] Standards of Medical Care in Diabetes 2016, [place] [employer]. Diabetes Care. 2016.39(Suppl 1). Performed By: #### 2 777-1, 13690-4, 77882-0 ####[facility]ORATORYCLIA [id number] [place] [address] [place] Potassium [Moles/Vol] 4.0 mmol/L Normal 3.7-5.1 [facility] Comment on above: Order Comment: Speci men Type: BLOOD SPECIMEN Performed By: #### 2 777-1, 22305-8, ####[facility]ORYCLIA [id number] [address] Sodium [Moles/Vol] 152 mmol/L High 136-144 [facility] Comment on above: Order Comment: Speci men Type: BLOOD SPECIMEN Performed By: #### 2 777-1, 86955-1, ####[facility]ORYCLIA [id number] [address] Urea nitrogen [Mass/Vol] 34 mg/dL High 9-24 [facility] Comment on above: Order Comment: Speci men Type: BLOOD SPECIMEN Performed By: #### 2 777-1, , ####[facility]ORATORYCLIA [id number] [address] CBC panel Auto (Bld)on 06-12 Erythrocyte distribution width (RBC) [Ratio] 16.1 % High 11.5-15.0 [facility] Comment on above: Order Comment: Speci men Type: BLOOD SPECIMEN Performed By: #### 5 8410-2 ####[facility]ORATORYCLIA [id number] [address] Hematocrit (Bld) [Volume fraction] 32.8 % Low 39.0-51.0 [facility] Comment on above: Order Comment: Speci men Type: BLOOD SPECIMEN Performed By: #### 5 8410-2 ####[facility]ATORYCLIA [id number] [address] Hemoglobin (Bld) [Mass/Vol] 9.9 g/dL Low 13.0-17.0 [facility] Comment on above: Order Comment: Speci men Type: BLOOD SPECIMEN Performed By: #### 5 8410-2 ####[facility]ORYCLIA [id number] [address] MCH (RBC) [Entitic mass] 28.4 pg Normal 26.0-34.0 [facility] Comment on above: Order Comment: Speci men Type: BLOOD SPECIMEN Performed By: #### 5 8410-2 ####[facility]ATORYCLIA [id number] [address] MCHC (RBC) [Mass/Vol] 30.2 g/dL Low 30.5-36.0 [facility] Comment on above: Order Comment: Speci men Type: BLOOD SPECIMEN Performed By: #### 5 8410-2 ####[facility]ATORYCLIA [id number] [address] MCV (RBC) [Entitic vol] 94.3 fL Normal 80.0-100.0 [facility] Comment on above: Order Comment: Speci men Type: BLOOD SPECIMEN Performed By: #### 5 8410-2 ####[facility]ORATORYCLIA [id number] [address] Nucleated RBC (Bld) [#/Vol] 10*3/uL Normal <0.01 [facility] Comment on above: Order Comment: Speci men Type: BLOOD SPECIMEN Performed By: #### 5 8410-2 ####[facility]ATORYCLIA [id number] [address] Platelet mean volume (Bld) [Entitic vol] 11.2 fL Normal 9.0-12.7 [facility] Comment on above: Order Comment: Speci men Type: BLOOD SPECIMEN Performed By: #### 5 8410-2 ####[facility]ATORYCLIA [id number] [address] Platelets (Bld) [#/Vol] 218 10*3/uL Normal 150-400 [facility] Comment on above: Order Comment: Speci men Type: BLOOD SPECIMEN Performed By: #### 5 8410-2 ####[facility]ATORYCLIA [id number] [address] RBC (Bld) [#/Vol] 3.48 10*6/uL Low 4.20-6.00 [facility] Comment on above: Order Comment: Speci men Type: BLOOD SPECIMEN Performed By: #### 5 8410-2 ####[facility]ATORYCLIA [id number] [place] [address] [place] WBC (Bld) [#/Vol] 13.33 10*3/uL High 3.70-11.00 [facility] Comment on above: Order Comment: Speci men Type: BLOOD SPECIMEN Performed By: #### 5 8410-2 ####[facility]ORATORYCLIA [id number] [address] OF [facility] CONSULT PROGon 06-12-2021 CONSULT PROG Normal [facility] CT DRN PLACE PERIT/RETROP FL BIon 06-12-[address] PERIT/RETROP FL BI Normal [facility] HISTORY PHYSICALon HISTORY PHYSICAL Normal [facility] Magnesium SerPl-mCncon 06-12 Magnesium [Mass/Vol] 2.7 mg/dL High 1.7-2.3 [facility] Comment on above: Order Comment: Speci men Type: BLOOD SPECIMEN Performed By: #### 2 777-1, 09730-4, 63733-8 ####[facility]ORATORYCLIA [id number] [address] [place] PT panel Coag (PPP)on 2021 INR Coag (PPP) [Relative time] 1.1 {INR} Normal 0.9-1.3 [facility] Comment on above: Order Comment: Speci men Type: BLOOD SPECIMEN Result Comment: Yris min K Antagonist (VKA) Therapeutic Range: INR 2 to 3 (Target INR of 2.5)Note: For patients treated with VKA drugs, such as warfarin, the [place] [employer] 2012 Guideline recommends [...] al. Chest 2012, 141:7S-47SAlba RA, et al. [facility] 2017, 70: 252-289 Performed By: #### 3 4528-0 ####[facility]ORATORYCLIA [id number] [address] STATES OF [facility] PT Coag (PPP) [Time] 11.9 s Normal 9.7-13.0 [facility] Comment on above: Order Comment: Speci men Type: BLOOD SPECIMEN Performed By: #### 3 4528-0 ####[facility]ORATORYCLIA [id number] [address] STATES OF [facility] Phosphate SerPl-mCncon 06-12 Phosphate [Mass/Vol] 2.2 mg/dL Low 2.7-4.8 [facility] Comment on above: Order Comment: Speci men Type: BLOOD SPECIMEN Performed By: #### 2 777-1, 63531-3, 41195-8 ####[facility]ATORYCLIA [id number] [address] XR ABDOMEN 1V SUPINEon 06-12 XR ABDOMEN 1V SUPINE Normal [facility] ALLIED HEALTHon 06-11-2021 ALLIED HEALTH Normal [facility] Bacteria Bld Culton 06-11-19 22 Bacteria identified Cx Nom (Bld) CULTURE, BLOOD: No growth 5 days Normal [facility] Comment on above: Performed By: #### 6 00-7 ####[facility]ATORYCLIA [id number] [address] Bacteria identified Cx Nom (Bld) CULTURE, BLOOD: No growth 5 days Normal [facility] Comment on above: Performed By: #### 6 00-7 ####[facility]ORYCLIA [id number] [address] [place] Bacteria Ur Culton 2 Bacteria identified Cx Nom (U) CULTURE, URINE: No growth (<1,000 CFU/ml) Normal [facility] Comment on above: Performed By: #### 6 30-4 ####[facility]ATORYCLIA [id number] [address] OF [facility] Basic metabolic 2000 panelon 06-11-2021 Anion gap [Moles/Vol] 9 mmol/L Normal 9-18 [facility] Comment on above: Order Comment: Speci men Type: BLOOD SPECIMEN Performed By: #### 1 9123-9, 2777-1, 39103-8 ####[facility]ORYCLIA [id number] [address] [place] Calcium [Mass/Vol] 8.5 mg/dL Normal 8.5-10.2 [facility] Comment on above: Order Comment: Speci men Type: BLOOD SPECIMEN Performed By: #### 1 9123-9, 2777-1, 36130-8 ####[facility]ORYCLIA [id number] [address] [place] Chloride [Moles/Vol] 118 mmol/L High 97-105 [facility] Comment on above: Order Comment: Speci men Type: BLOOD SPECIMEN Performed By: #### 1 9123-9, 2777-1, 51615-0 ####[facility]ORYCLIA [id number] [place] [address] [place] CO2 [Moles/Vol] 27 mmol/L Normal 22-30 [facility] Comment on above: Order Comment: Speci men Type: BLOOD SPECIMEN Performed By: #### 1 9123-9, 2777-1, 38622-0 ####[facility]ORYCLIA [id number] [address] [place] Creatinine [Mass/Vol] 0.75 mg/dL Normal 0.73-1.22 [facility] Comment on above: Order Comment: Speci men Type: BLOOD SPECIMEN Performed By: #### 1 9123-9, 2777-1, 04345-0 ####[facility]ORATORYCLIA [id number] [place] [id number] [place] GFR/1.73 sq M.predicted MDRD (S/P/Bld) [Vol rate/Area] mL/min/{1.73_m2} Normal [facility] Comment on above: Order Comment: Speci [...] GFR. Performed By: #### 1 9123-9, 2777-1, 49005-7 ####[facility] CRAWFORDSVILLEIA [id number] [place] [id number] [place] Glucose [Mass/Vol] 142 mg/dL High 74-99 [facility] Comment on above: Order Comment: Speci men Type: BLOOD SPECIMEN Result Comment: The [place] [employer] (ADA) provides guidance for cutoff [...] Standards of Medical Care in Diabetes 2016, [place] [employer]. Diabetes Care. 2016.39(Suppl 1). Performed By: #### 1 9123-9, 2777-1, 18564-1 ####[facility]ORATORYCLIA [id number] [address] STATES OF [facility] Potassium [Moles/Vol] 3.6 mmol/L Low 3.7-5.1 [facility] Comment on above: Order Comment: Speci men Type: BLOOD SPECIMEN Performed By: #### 1 9123-9, 2777-1, 15496-0 ####[facility]ORYCLIA [id number] [address] Sodium [Moles/Vol] 154 mmol/L High 136-144 [facility] Comment on above: Order Comment: Speci men Type: BLOOD SPECIMEN Performed By: #### 1 9123-9, 2777-1, 74979-9 ####[facility]ORYCLIA [id number] [address] Urea nitrogen [Mass/Vol] 31 mg/dL High 9-24 [facility] Comment on above: Order Comment: Speci men Type: BLOOD SPECIMEN Performed By: #### 1 9123-9, 2777-, 34071-3 ####[facility]ATORYCLIA [id number] [address] C diff Tox gens Stl Ql MEGAN+p robeon 06-11-2021 C. difficile toxin genes MEGAN+probe Ql (Stl) Negative Normal Negative for C. difficile toxin by PCR [facility] Comment on above: Order Comment: Speci men Type: STOOL SPECIMEN Performed By: #### 5 4067-4 ####[facility]ATORYCLIA [id number] [address] CBC W Auto Differential pane l (Bld)on 06-11-2021 Basophils (Bld) [#/Vol] 0.03 10*3/uL Normal <0.11 [facility] Comment on above: Order Comment: Speci men Type: BLOOD SPECIMEN Performed By: #### 5 7021-8 ####[facility]ATORYCLIA [id number] [address] Basophils/100 WBC (Bld) 0.2 % Normal [facility] Comment on above: Order Comment: Speci men Type: BLOOD SPECIMEN Performed By: #### 5 7021-8 ####[facility]ORYCLIA [id number] [address] Differential cell count method Nom (Bld) Auto Normal [facility] Comment on above: Order Comment: Speci men Type: BLOOD SPECIMEN Performed By: #### 5 7021-8 ####[facility]ORYCLIA [id number] [address] Eosinophils (Bld) [#/Vol] 0.19 10*3/uL Normal <0.46 [facility] Comment on above: Order Comment: Speci men Type: BLOOD SPECIMEN Performed By: #### 5 7021-8 ####[facility]ORYCLIA [id number] [address] Eosinophils/100 WBC (Bld) 1.5 % Normal [facility] Comment on above: Order Comment: Speci men Type: BLOOD SPECIMEN Performed By: #### 5 7021-8 ####[facility]ORYCLIA [id number] [address] Erythrocyte distribution width (RBC) [Ratio] 16.3 % High 11.5-15.0 [facility] Comment on above: Order Comment: Speci men Type: BLOOD SPECIMEN Performed By: #### 5 7021-8 ####[facility]ORYCLIA [id number] [address] Hematocrit (Bld) [Volume fraction] 32.1 % Low 39.0-51.0 [facility] Comment on above: Order Comment: Speci men Type: BLOOD SPECIMEN Performed By: #### 5 7021-8 ####[facility]ORYCLIA [id number] [address] [place] Hemoglobin (Bld) [Mass/Vol] 9.3 g/dL Low 13.0-17.0 [facility] Comment on above: Order Comment: Speci men Type: BLOOD SPECIMEN Performed By: #### 5 7021-8 ####[facility]ORYCLIA [id number] [address] IMMATURE GRAN % 0.6 % Normal [facility] Comment on above: Order Comment: Speci men Type: BLOOD SPECIMEN Performed By: #### 5 7021-8 ####[facility]ORYCLIA [id number] [address] IMMATURE GRAN ABS 0.08 k/uL Normal <0.10 [facility] Comment on above: Order Comment: Speci men Type: BLOOD SPECIMEN Performed By: #### 5 7021-8 ####[facility]ORYCLIA [id number] [address] Lymphocytes (Bld) [#/Vol] 1.65 10*3/uL Normal 1.00-4.00 [facility] Comment on above: Order Comment: Speci men Type: BLOOD SPECIMEN Performed By: #### 5 7021-8 ####[facility]ORYCLIA [id number] [address] Lymphocytes/100 WBC (Bld) 12.8 % Normal [facility] Comment on above: Order Comment: Speci men Type: BLOOD SPECIMEN Performed By: #### 5 7021-8 ####[facility]ORYCLIA [id number] [address] MCH (RBC) [Entitic mass] 27.2 pg Normal 26.0-34.0 [facility] Comment on above: Order Comment: Speci men Type: BLOOD SPECIMEN Performed By: #### 5 7021-8 ####[facility]ORYCLIA [id number] [address] MCHC (RBC) [Mass/Vol] 29.0 g/dL Low 30.5-36.0 [facility] Comment on above: Order Comment: Speci men Type: BLOOD SPECIMEN Performed By: #### 5 7021-8 ####[facility]ORYCLIA [id number] [address] MCV (RBC) [Entitic vol] 93.9 fL Normal 80.0-100.0 [facility] Comment on above: Order Comment: Speci men Type: BLOOD SPECIMEN Performed By: #### 5 7021-8 ####[facility]ORYCL[facility] [id number] [address] Monocytes (Bld) [#/Vol] 0.68 10*3/uL Normal <0.87 [facility] Comment on above: Order Comment: Speci men Type: BLOOD SPECIMEN Performed By: #### 5 7021-8 ####[facility]ORATORYCLIA [id number] [address] Monocytes/100 WBC (Bld) 5.3 % Normal [facility] Comment on above: Order Comment: Speci men Type: BLOOD SPECIMEN Performed By: #### 5 7021-8 ####[facility]ORATORYCLIA [id number] [address] Neutrophils (Bld) [#/Vol] 10.22 10*3/uL High 1.45-7.50 [facility] Comment on above: Order Comment: Speci men Type: BLOOD SPECIMEN Performed By: #### 5 7021-8 ####[facility] LABORATORYCLIA [id number] [address] Neutrophils/100 WBC (Bld) 79.6 % Normal [facility] Comment on above: Order Comment: Speci men Type: BLOOD SPECIMEN Performed By: #### 5 7021-8 ####[facility]ORYCLIA [id number] [address] Nucleated RBC (Bld) [#/Vol] 10*3/uL Normal <0.01 [facility] Comment on above: Order Comment: Speci men Type: BLOOD SPECIMEN Performed By: #### 5 7021-8 ####[facility]ORYCLIA [id number] [address] [place] Nucleated RBC/100 WBC (Bld) [Ratio] 0.0 /100 WBC Normal 0.0 [facility] Comment on above: Order Comment: Speci men Type: BLOOD SPECIMEN Performed By: #### 5 7021-8 ####[facility]ORATORYCLIA [id number] [address] Platelet mean volume (Bld) [Entitic vol] 11.1 fL Normal 9.0-12.7 [facility] Comment on above: Order Comment: Speci men Type: BLOOD SPECIMEN Performed By: #### 5 7021-8 ####[facility]ORATORYCLIA [id number] [address] Platelets (Bld) [#/Vol] 188 10*3/uL Normal 150-400 [facility] Comment on above: Order Comment: Speci men Type: BLOOD SPECIMEN Performed By: #### 5 7021-8 ####[facility]ATORYCLIA [id number] [address] RBC (Bld) [#/Vol] 3.42 10*6/uL Low 4.20-6.00 [facility] Comment on above: Order Comment: Speci men Type: BLOOD SPECIMEN Performed By: #### 5 7021-8 ####[facility]ORYCLIA [id number] [address] WBC (Bld) [#/Vol] 12.85 10*3/uL High 3.70-11.00 [facility] Comment on above: Order Comment: Speci men Type: BLOOD SPECIMEN Performed By: #### 5 7021-8 ####[facility]ATORYCLIA [id number] [address] CBC panel Auto (Bld)on 06-11 Erythrocyte distribution width (RBC) [Ratio] 16.2 % High 11.5-15.0 [facility] Comment on above: Order Comment: Speci men Type: BLOOD SPECIMEN Performed By: #### 5 8410-2 ####[facility]ATORYCLIA [id number] [address] Hematocrit (Bld) [Volume fraction] 34.5 % Low 39.0-51.0 [facility] Comment on above: Order Comment: Speci men Type: BLOOD SPECIMEN Performed By: #### 5 8410-2 ####[facility]ATORYCLIA [id number] [address] Hemoglobin (Bld) [Mass/Vol] 10.3 g/dL Low 13.0-17.0 [facility] Comment on above: Order Comment: Speci men Type: BLOOD SPECIMEN Performed By: #### 5 8410-2 ####[facility]ORYCLIA [id number] [address] MCH (RBC) [Entitic mass] 28.1 pg Normal 26.0-34.0 [facility] Comment on above: Order Comment: Speci men Type: BLOOD SPECIMEN Performed By: #### 5 8410-2 ####[facility]ORYCLIA [id number] [address] MCHC (RBC) [Mass/Vol] 29.9 g/dL Low 30.5-36.0 [facility] Comment on above: Order Comment: Speci men Type: BLOOD SPECIMEN Performed By: #### 5 8410-2 ####[facility]ORYCLIA [id number] [address] MCV (RBC) [Entitic vol] 94.3 fL Normal 80.0-100.0 [facility] Comment on above: Order Comment: Speci men Type: BLOOD SPECIMEN Performed By: #### 5 8410-2 ####[facility]ORYCLIA [id number] [address] Nucleated RBC (Bld) [#/Vol] 10*3/uL Normal <0.01 [facility] Comment on above: Order Comment: Speci men Type: BLOOD SPECIMEN Performed By: #### 5 8410-2 ####[facility]ORYCLIA [id number] [address] Platelet mean volume (Bld) [Entitic vol] 10.9 fL Normal 9.0-12.7 [facility] Comment on above: Order Comment: Speci men Type: BLOOD SPECIMEN Performed By: #### 5 8410-2 ####[facility]ATORYCLIA [id number] [address] OF [facility] Platelets (Bld) [#/Vol] 210 10*3/uL Normal 150-400 [facility] Comment on above: Order Comment: Speci men Type: BLOOD SPECIMEN Performed By: #### 5 8410-2 ####[facility]ORYCLIA [id number] [address] RBC (Bld) [#/Vol] 3.66 10*6/uL Low 4.20-6.00 [facility] Comment on above: Order Comment: Speci men Type: BLOOD SPECIMEN Performed By: #### 5 8410-2 ####[facility]ATORYCLIA [id number] [address] OF [facility] WBC (Bld) [#/Vol] 13.03 10*3/uL High 3.70-11.00 [facility] Comment on above: Order Comment: Speci men Type: BLOOD SPECIMEN Performed By: #### 5 8410-2 ####[facility]ORATORYCLIA [id number] [address] [facility] CONSULT PROGon 06-11-2021 CONSULT PROG Normal [facility] CONSULT PROG Normal [facility] CONSULT PROG Normal [facility] CT ABD/PEL W IVCONon 022 CT ABD/PEL W IVCON Invalid Interpretation Code [facility] Magnesium SerPl-mCncon 06-11 Magnesium [Mass/Vol] 2.7 mg/dL High 1.7-2.3 [facility] Comment on above: Order Comment: Speci men Type: BLOOD SPECIMEN Performed By: #### 1 9123-9, 2776-1, 45459-5 ####[facility]ORYCLIA [id number] [place] [address] [place] Phosphate SerPl-mCncon 06-11 Phosphate [Mass/Vol] 2.5 mg/dL Low 2.7-4.8 [facility] Comment on above: Order Comment: Speci men Type: BLOOD SPECIMEN Performed By: #### 1 9123-9, 2776-1, 06650-1 ####[facility]ORYCLIA [id number] [place] [address] [place] Basic metabolic 2000 panelon 06-10-2021 Anion gap [Moles/Vol] 7 mmol/L Low 9-18 [facility] Comment on above: Order Comment: Speci men Type: BLOOD SPECIMEN Performed By: #### 2 777-1, 11157-4, , HFP ####[facility]ORYCLIA [id number] [place] [address] [place] Calcium [Mass/Vol] 8.5 mg/dL Normal 8.5-10.2 [facility] Comment on above: Order Comment: Speci men Type: BLOOD SPECIMEN Performed By: #### 2 777-1, 96269-0, , HFP ####[facility]ORYCLIA [id number] [place] [address] [place] Chloride [Moles/Vol] 118 mmol/L High 97-105 [facility] Comment on above: Order Comment: Speci men Type: BLOOD SPECIMEN Performed By: #### 2 777-1, 36686-6, , HFP ####[facility]ORYCLIA [id number] [place] [address] [place] CO2 [Moles/Vol] 26 mmol/L Normal 22-30 [facility] Comment on above: Order Comment: Speci men Type: BLOOD SPECIMEN Performed By: #### 2 777-1, 08605-5, , HFP ####[facility]ORYCLIA [id number] [place] [address] [place] Creatinine [Mass/Vol] 0.70 mg/dL Low 0.73-1.22 [facility] Comment on above: Order Comment: Speci men Type: BLOOD SPECIMEN Performed By: #### 2 777-1, 98658-3, , [facility] ####[facility]ORATORYCLIA [id number] [place] [id number] [place] GFR/1.73 sq M.predicted MDRD (S/P/Bld) [Vol rate/Area] mL/min/{1.73_m2} Normal [facility] Comment on above: Order Comment: Speci [...] actual GFR. Performed By: #### 2 777-1, 20714-6, , [facility] ####[facility]ORATORYCLIA [id number] [place] [address] [place] Glucose [Mass/Vol] 135 mg/dL High 74-99 [facility] Comment on above: Order Comment: Speci men Type: BLOOD SPECIMEN Result Comment: The [place] [employer] (ADA) provides guidance for cutoff [...] Standards of Medical Care in Diabetes 2016, [place] [employer]. Diabetes Care. 2016.39(Suppl 1). Performed By: #### 2 777-1, 09784-2, , [facility] ####[facility]ORATORYCLIA [id number] [place], [place] [address] [place] [address] [place] [facility] Potassium [Moles/Vol] 3.9 mmol/L Normal 3.7-5.1 [facility] Comment on above: Order Comment: Speci men Type: BLOOD SPECIMEN Performed By: #### 2 777-1, 71068-5, , [facility] ####[facility]ORATORYCLIA [id number] [address] STATES [facility] Sodium [Moles/Vol] 151 mmol/L High 136-144 [facility] Comment on above: Order Comment: Speci men Type: BLOOD SPECIMEN Performed By: #### 2 777-1, 93324-8, , [facility] ####[facility]ORATORYCLIA [id number] [address] STATES OF [facility] Urea nitrogen [Mass/Vol] 27 mg/dL High 9-24 [facility] Comment on above: Order Comment: Speci men Type: BLOOD SPECIMEN Performed By: #### 2 777-1, 45015-7, , [facility] ####[facility]ORATORYCLIA [id number] [address] OF [facility] CASE MANAGEMon 06-10-2021 CASE MANAGEM Normal [facility] CBC panel Auto (Bld)on 06-10 Erythrocyte distribution width (RBC) [Ratio] 16.2 % High 11.5-15.0 [facility] Comment on above: Order Comment: Speci men Type: BLOOD SPECIMEN Performed By: #### 5 8410-2 ####[facility]ORATORYCLIA [id number] [address] [facility] Hematocrit (Bld) [Volume fraction] 34.8 % Low 39.0-51.0 [facility] Comment on above: Order Comment: Speci men Type: BLOOD SPECIMEN Performed By: #### 5 8410-2 ####[facility]ORATORYCLIA [id number] [address] Hemoglobin (Bld) [Mass/Vol] 10.2 g/dL Low 13.0-17.0 [facility] Comment on above: Order Comment: Speci men Type: BLOOD SPECIMEN Performed By: #### 5 8410-2 ####[facility]ATORYCLIA [id number] [address] MCH (RBC) [Entitic mass] 27.1 pg Normal 26.0-34.0 [facility] Comment on above: Order Comment: Speci men Type: BLOOD SPECIMEN Performed By: #### 5 8410-2 ####[facility]ORYCLIA [id number] [address] MCHC (RBC) [Mass/Vol] 29.3 g/dL Low 30.5-36.0 [facility] Comment on above: Order Comment: Speci men Type: BLOOD SPECIMEN Performed By: #### 5 8410-2 ####[facility]ATORYCLIA [id number] [address] MCV (RBC) [Entitic vol] 92.6 fL Normal 80.0-100.0 [facility] Comment on above: Order Comment: Speci men Type: BLOOD SPECIMEN Performed By: #### 5 8410-2 ####[facility]ATORYCLIA [id number] [address] Nucleated RBC (Bld) [#/Vol] 10*3/uL Normal <0.01 [facility] Comment on above: Order Comment: Speci men Type: BLOOD SPECIMEN Performed By: #### 5 8410-2 ####[facility]ATORYCLIA [id number] [address] Platelet mean volume (Bld) [Entitic vol] 10.4 fL Normal 9.0-12.7 [facility] Comment on above: Order Comment: Speci men Type: BLOOD SPECIMEN Performed By: #### 5 8410-2 ####[facility]ORYCLIA [id number] [address] Platelets (Bld) [#/Vol] 206 10*3/uL Normal 150-400 [facility] Comment on above: Order Comment: Speci men Type: BLOOD SPECIMEN Performed By: #### 5 8410-2 ####[facility]ATORYCLIA [id number] [address] RBC (Bld) [#/Vol] 3.76 10*6/uL Low 4.20-6.00 [facility] Comment on above: Order Comment: Speci men Type: BLOOD SPECIMEN Performed By: #### 5 8410-2 ####[facility]ATORYCLIA [id number] [address] WBC (Bld) [#/Vol] 11.36 10*3/uL High 3.70-11.00 [facility] Comment on above: Order Comment: Speci men Type: BLOOD SPECIMEN Performed By: #### 5 8410-2 ####[facility]ORATORYCLIA [id number] [address] HEPATIC FUNCTION PNLon 06-10 Albumin [Mass/Vol] 3.1 g/dL Low 3.9-4.9 [facility] Comment on above: Order Comment: Speci men Type: BLOOD SPECIMEN Performed By: #### 2 777-1, 13764-7, , HFP ####[facility]ATORYCLIA [id number] [address] ALP [Catalytic activity/Vol] 73 U/L Normal 38-113 [facility] Comment on above: Order Comment: Speci men Type: BLOOD SPECIMEN Performed By: #### 2 777-1, 12578-3, , HFP ####[facility]ORATORYCLIA [id number] [address] ALT With P-5'-P [Catalytic activity/Vol] 64 U/L High 10-54 [facility] Comment on above: Order Comment: Speci men Type: BLOOD SPECIMEN Performed By: #### 2 777-1, 48698-3, , HFP ####[facility]ATORYCLIA [id number] [place], [place] [address] [place] [address] [facility] AST With P-5'-P [Catalytic activity/Vol] 44 U/L High 14-40 [facility] Comment on above: Order Comment: Speci men Type: BLOOD SPECIMEN Performed By: #### 2 777-1, 23214-4, , HFP ####[facility]ORYCLIA [id number] [address] Bilirubin [Mass/Vol] 0.5 mg/dL Normal 0.2-1.3 [facility] Comment on above: Order Comment: Speci men Type: BLOOD SPECIMEN Performed By: #### 2 777-1, 60643-3, , HFP ####[facility]ORYCLIA [id number] [address] Bilirubin.conjugated [Mass/Vol] mg/dL Normal <0.2 [facility] Comment on above: Order Comment: Speci men Type: BLOOD SPECIMEN Performed By: #### 2 777-1, 70285-1, , HFP ####[facility]ORYCLIA [id number] [address] STATES [facility] Protein [Mass/Vol] 5.7 g/dL Low 6.3-8.0 [facility] Comment on above: Order Comment: Speci men Type: BLOOD SPECIMEN Performed By: #### 2 777-1, 88578-2, , HFP ####[facility]ORYCLIA [id number] [place], [place] [id number] [place] [address] [facility] LEVETIRACETAMon 06-10-2021 levETIRAcetam [Mass/Vol] 57.7 ug/mL High 12.0-46.0 [facility] Comment on above: Order Comment: Speci [...] developed and its performance characteristics determined by [facility]'s [facility] [place] ( [facility]). It has not been cleared or approved by the FDA. [facility] is regulated under CLIA as qualified to perform high complexity testing. This test is used for clinical purposes. It should not be regarded as investigational or for research. Performed By: #### L EVET ####[facility] LABCLIA [id number] [facility] [place] [address] [place] Magnesium SerPl-ncon 06-10 Magnesium [Mass/Vol] 2.7 mg/dL High 1.7-2.3 [facility] Comment on above: Order Comment: Speci men Type: BLOOD SPECIMEN Performed By: #### 2 777-1, 61888-8, , [facility] ####[facility]ORATORYCLIA [id number] [place] [address] [place] Phosphate SerPl-mCncon 06-10 Phosphate [Mass/Vol] 1.8 mg/dL Low 2.7-4.8 [facility] Comment on above: Order Comment: Speci men Type: BLOOD SPECIMEN Performed By: #### 2 777-1, 77836-2, , [facility] ####[facility]ORATORYCLIA [id number] [place] [address] [place] ALLIED HEALTHon 06-09-2021 ALLIED HEALTH Normal [facility] ALLIED HEALTH Normal [facility] ALLIED HEALTH Normal [facility] ALLIED HEALTH Normal [facility] Basic metabolic 2000 panelon 06-09-2021 Anion gap [Moles/Vol] 8 mmol/L Low 9-18 [facility] Comment on above: Order Comment: Speci men Type: BLOOD SPECIMEN Performed By: #### 2 4321-2, 2776-05, ####[facility]ORYCLIA [id number] [address] STATES OF [facility] Calcium [Mass/Vol] 8.3 mg/dL Low 8.5-10.2 [facility] Comment on above: Order Comment: Speci men Type: BLOOD SPECIMEN Performed By: #### 2 4321-2, 2776-05, ####[facility]ORATORYCLIA [id number] [address] STATES OF [facility] Chloride [Moles/Vol] 116 mmol/L High 97-105 [facility] Comment on above: Order Comment: Speci men Type: BLOOD SPECIMEN Performed By: #### 2 4321-2, 2776-05, ####[facility]ORATORYCLIA [id number] [address] [place] CO2 [Moles/Vol] 27 mmol/L Normal 22-30 [facility] Comment on above: Order Comment: Speci men Type: BLOOD SPECIMEN Performed By: #### 2 4321-2, 2776-05, ####[facility]ATORYCLIA [id number] [address] [place] Creatinine [Mass/Vol] 0.70 mg/dL Low 0.73-1.22 [facility] Comment on above: Order Comment: Speci men Type: BLOOD SPECIMEN Performed By: #### 2 4321-2, 2776-05, ####[facility]ATORYCLIA [id number] [place] [address] [place] GFR/1.73 sq M.predicted MDRD (S/P/Bld) [Vol rate/Area] mL/min/{1.73_m2} Normal [facility] Comment on above: Order Comment: Speci [...] GFR. Performed By: #### 2 4321-2, 2776-05, ####[facility]IA [id number] [place] [address] [place] Glucose [Mass/Vol] 123 mg/dL High 74-99 [facility] Comment on above: Order Comment: Speci men Type: BLOOD SPECIMEN Result Comment: The [place] [employer] (ADA) provides guidance for cutoff [...] Standards of Medical Care in Diabetes 2016, [place] [employer]. Diabetes Care. 2016.39(Suppl 1). Performed By: #### 2 4321-2, 2776-05, ####[facility]ORATORYCLIA [id number] [place] [address] [place] Potassium [Moles/Vol] 3.5 mmol/L Low 3.7-5.1 [facility] Comment on above: Order Comment: Speci men Type: BLOOD SPECIMEN Performed By: #### 2 4321-2, 27711-04, ####[facility]ORATORYCLIA [id number] [place] [address] [place] Sodium [Moles/Vol] 151 mmol/L High 136-144 [facility] Comment on above: Order Comment: Speci men Type: BLOOD SPECIMEN Performed By: #### 2 4321-2, 2776-, ####[facility]ORATORYCLIA [id number] [place], [place] [address] [place] [address] Urea nitrogen [Mass/Vol] 39 mg/dL High 9-24 [facility] Comment on above: Order Comment: Speci men Type: BLOOD SPECIMEN Performed By: #### 2 4321-2, 2776-, ####[facility]ORATORYCLIA [id number] [address] CBC panel Auto (Bld)on 06-09 Erythrocyte distribution width (RBC) [Ratio] 16.2 % High 11.5-15.0 [facility] Comment on above: Order Comment: Speci men Type: BLOOD SPECIMEN Performed By: #### 5 8410-2 ####[facility]ORATORYCLIA [id number] [address] Hematocrit (Bld) [Volume fraction] 33.7 % Low 39.0-51.0 [facility] Comment on above: Order Comment: Speci men Type: BLOOD SPECIMEN Performed By: #### 5 8410-2 ####[facility]ORATORYCLIA [id number] [address] Hemoglobin (Bld) [Mass/Vol] 10.2 g/dL Low 13.0-17.0 [facility] Comment on above: Order Comment: Speci men Type: BLOOD SPECIMEN Performed By: #### 5 8410-2 ####[facility]ORATORYCLIA [id number] [address] MCH (RBC) [Entitic mass] 27.4 pg Normal 26.0-34.0 [facility] Comment on above: Order Comment: Speci men Type: BLOOD SPECIMEN Performed By: #### 5 8410-2 ####[facility]ORATORYCLIA [id number] [address] MCHC (RBC) [Mass/Vol] 30.3 g/dL Low 30.5-36.0 [facility] Comment on above: Order Comment: Speci men Type: BLOOD SPECIMEN Performed By: #### 5 8410-2 ####[facility]ORATORYCLIA [id number] [address] MCV (RBC) [Entitic vol] 90.6 fL Normal 80.0-100.0 [facility] Comment on above: Order Comment: Speci men Type: BLOOD SPECIMEN Performed By: #### 5 8410-2 ####[facility]ORATORYCLIA [id number] [address] Nucleated RBC (Bld) [#/Vol] 10*3/uL Normal <0.01 [facility] Comment on above: Order Comment: Speci men Type: BLOOD SPECIMEN Performed By: #### 5 8410-2 ####[facility]ORATORYCLIA [id number] [address] Platelet mean volume (Bld) [Entitic vol] 10.3 fL Normal 9.0-12.7 [facility] Comment on above: Order Comment: Speci men Type: BLOOD SPECIMEN Performed By: #### 5 8410-2 ####[facility]ORATORYCLIA [id number] [address] Platelets (Bld) [#/Vol] 219 10*3/uL Normal 150-400 [facility] Comment on above: Order Comment: Speci men Type: BLOOD SPECIMEN Performed By: #### 5 8410-2 ####[facility]ATORYCLIA [id number] [address] RBC (Bld) [#/Vol] 3.72 10*6/uL Low 4.20-6.00 [facility] Comment on above: Order Comment: Speci men Type: BLOOD SPECIMEN Performed By: #### 5 8410-2 ####[facility]ATORYCLIA [id number] [address] WBC (Bld) [#/Vol] 13.02 10*3/uL High 3.70-11.00 [facility] Comment on above: Order Comment: Speci men Type: BLOOD SPECIMEN Performed By: #### 5 8410-2 ####[facility]ORATORYCLIA [id number] [address] CONSULT PROGon 06-09-2021 CONSULT PROG Normal [facility] CONSULT PROG Normal [facility] CT BRAIN WO IVCONon 06-09-[address] BRAIN WO IVCON Normal [facility] Magnesium SerPl-mCncon 06-09 Magnesium [Mass/Vol] 2.8 mg/dL High 1.7-2.3 [facility] Comment on above: Order Comment: Speci men Type: BLOOD SPECIMEN Performed By: #### 2 4321-2, 2777-1, 48913-9 ####[facility]ORATORYCLIA [id number] [address] NURSING PROGon 06-09-2021 NURSING PROG Normal [facility] NUTRITIONon 06-09-2021 NUTRITION Normal [facility] PT EDon 06-09-2021 PT ED Normal [facility] Phosphate SerPl-mCncon 06-09 Phosphate [Mass/Vol] 2.2 mg/dL Low 2.7-4.8 [facility] Comment on above: Order Comment: Speci men Type: BLOOD SPECIMEN Performed By: #### 2 4321-2, 2777-1, 79148-8 ####[facility]ORATORYCLIA [id number] [address] Vancomycin random [Mass/Vol] on 06-09-2021 Vancomycin [Mass/Vol] 18.9 ug/mL Normal 10.0-20.0 [facility] Comment on above: Order Comment: Speci men Type: BLOOD SPECIMEN Result Comment: Refe rence ranges and high/low indicator flags are provided as general guidelines only. The treating physician must determine appropriate target levels/dosing based on the specific clinical situation. Performed By: #### 4 [id number] ####[facility] LABORATORYCLIA [id number] [address] [place] XR ABD 2V SUPINE W UPR/DECUB /CTLon 06-09-2021 XR ABD 2V SUPINE W UPR/DECUB/CTL Normal [facility] XR CHEST 1V FRONTALon 2021 XR CHEST 1V FRONTAL Normal [facility] XR NECK SOFT TISSUE 2V AP/LA Ton 06-09-2021 XR NECK SOFT TISSUE 2V AP/LAT Normal [facility] XR SKULL 2V AP/LATon 022 XR SKULL 2V AP/LAT Normal [facility] ALLIED HEALTHon 06-08-2021 ALLIED HEALTH Normal [facility] ANES POSTPROC EVALon 022 ANES POSTPROC EVAL Normal [facility] ANES PRE-OPon 06-08-2021 ANES PRE-OP Normal [facility] BRIEF OP NOTon 06-08-2021 BRIEF OP NOT Normal [facility] Bacteria Spec Anaerobe Culto n 06-08-2021 Bacteria identified Anaer cx Nom (Unsp spec) ORGANISM ID: 1 Rare Staphylococcus saccharolyticus Identification performed by [facility] [employer] [facility]-Main See scanned document for susceptibility report Normal [facility] Comment on above: Performed By: #### 6 462-6, 635-3 ####[facility] LABORATORYCLIA [id number] [address] [place] Bacteria Wnd Culton 06-08-19 22 Bacteria identified Cx Nom (Wound) CULTURE, INTRAOPERATIVE HARDWARE: No growth 5 days GRAM STAIN: Not performed on specimen type Normal [facility] Comment on above: Performed By: #### 6 462-6, 635-3 ####[facility] LABORATORYCLIA [id number] [place] [address] [place] Basic metabolic 2000 panelon 06-08-2021 Anion gap [Moles/Vol] 9 mmol/L Normal 9-18 [facility] Comment on above: Order Comment: Speci men Type: BLOOD SPECIMEN Performed By: #### 2 4321-2, 2776-05, ####[facility] LABORATORYCLIA [id number] [address] STATES OF [facility] Calcium [Mass/Vol] 8.7 mg/dL Normal 8.5-10.2 [facility] Comment on above: Order Comment: Speci men Type: BLOOD SPECIMEN Performed By: #### 2 4321-2, 2776-05, ####[facility] LABORATORYCLIA [id number] [place], [place] [id number] [place] [address] [place] Chloride [Moles/Vol] 113 mmol/L High 97-105 [facility] Comment on above: Order Comment: Speci men Type: BLOOD SPECIMEN Performed By: #### 2 4321-2, 2776-05, ####[facility] LABORATORYCLIA [id number] [address] [place] CO2 [Moles/Vol] 26 mmol/L Normal 22-30 [facility] Comment on above: Order Comment: Speci men Type: BLOOD SPECIMEN Performed By: #### 2 4321-2, 2776-05, ####[facility]ORATORYCLIA [id number] [address] [place] Creatinine [Mass/Vol] 0.68 mg/dL Low 0.73-1.22 [facility] Comment on above: Order Comment: Speci men Type: BLOOD SPECIMEN Performed By: #### 2 4321-2, 2776-05, ####[facility]ORATORYCLIA [id number] [place] [address] [place] GFR/1.73 sq M.predicted MDRD (S/P/Bld) [Vol rate/Area] mL/min/{1.73_m2} Normal [facility] Comment on above: Order Comment: Speci men Type: BLOOD SPECIMEN Result Comment: >60e GFR (Estimated GFR) Units of measure: mL/min/1.73 meters squaredeGFR is derived from the reexpressed MDRD Study equation using the following parameters: serum creatinine, age, gender and race. The creatinine assay has been calibrated to be traceable to [place]. An eGFR <60 mL/min/1.73m2 for >3 months is consistent with chronic kidney disease. Refer to KDOQI guidelines for clinical interpretation. In patients with unstable renal function, e.g. those with acute kidney injury, the eGFR may not accurately reflect actual GFR. Performed By: #### 2 4321-2, 2776-05, ####[facility] LABORATORYCLIA [id number] [place] [address] [place] Glucose [Mass/Vol] 146 mg/dL High 74-99 [facility] Comment on above: Order Comment: Speci men Type: BLOOD SPECIMEN Result Comment: The [place] [employer] (ADA) provides guidance for cutoff [...] Standards of Medical Care in Diabetes 2016, [place] [employer]. Diabetes Care. 2016.39(Suppl 1). Performed By: #### 2 4321-2, 2776-05, ####[facility]ORATORYCLIA [id number] [address] [place] Potassium [Moles/Vol] 3.6 mmol/L Low 3.7-5.1 [facility] Comment on above: Order Comment: Speci men Type: BLOOD SPECIMEN Performed By: #### 2 4321-2, 2776-05, ####[facility]ORATORYCLIA [id number] [address] [place] Sodium [Moles/Vol] 148 mmol/L High 136-144 [facility] Comment on above: Order Comment: Speci men Type: BLOOD SPECIMEN Performed By: #### 2 4321-2, 2777-1, ####[facility]ORATORYCLIA [id number] [address] Urea nitrogen [Mass/Vol] 36 mg/dL High 9-24 [facility] Comment on above: Order Comment: Speci men Type: BLOOD SPECIMEN Performed By: #### 2 4321-2, 2777-, ####[facility]ORATORYCLIA [id number] [address] CASE MANAGEMon 06-08-2021 CASE MANAGEM Normal [facility] CBC panel Auto (Bld)on 06-08 Erythrocyte distribution width (RBC) [Ratio] 16.0 % High 11.5-15.0 [facility] Comment on above: Order Comment: Speci men Type: BLOOD SPECIMEN Performed By: #### 5 8410-2 ####[facility] LABORATORYCLIA [id number] [address] Hematocrit (Bld) [Volume fraction] 38.4 % Low 39.0-51.0 [facility] Comment on above: Order Comment: Speci men Type: BLOOD SPECIMEN Performed By: #### 5 8410-2 ####[facility]ORATORYCLIA [id number] [address] Hemoglobin (Bld) [Mass/Vol] 12.1 g/dL Low 13.0-17.0 [facility] Comment on above: Order Comment: Speci men Type: BLOOD SPECIMEN Performed By: #### 5 8410-2 ####[facility] LABORATORYCLIA [id number] [address] MCH (RBC) [Entitic mass] 28.3 pg Normal 26.0-34.0 [facility] Comment on above: Order Comment: Speci men Type: BLOOD SPECIMEN Performed By: #### 5 8410-2 ####[facility] LABORATORYCLIA [id number] [address] MCHC (RBC) [Mass/Vol] 31.5 g/dL Normal 30.5-36.0 [facility] Comment on above: Order Comment: Speci men Type: BLOOD SPECIMEN Performed By: #### 5 8410-2 ####[facility]ORATORYCLIA [id number] [address] MCV (RBC) [Entitic vol] 89.9 fL Normal 80.0-100.0 [facility] Comment on above: Order Comment: Speci men Type: BLOOD SPECIMEN Performed By: #### 5 8410-2 ####[facility]ORATORYCLIA [id number] [address] Nucleated RBC (Bld) [#/Vol] 10*3/uL Normal <0.01 [facility] Comment on above: Order Comment: Speci men Type: BLOOD SPECIMEN Performed By: #### 5 8410-2 ####[facility]ORATORYCLIA [id number] [address] Platelet mean volume (Bld) [Entitic vol] 10.3 fL Normal 9.0-12.7 [facility] Comment on above: Order Comment: Speci men Type: BLOOD SPECIMEN Performed By: #### 5 8410-2 ####[facility]ORATORYCLIA [id number] [address] Platelets (Bld) [#/Vol] 236 10*3/uL Normal 150-400 [facility] Comment on above: Order Comment: Speci men Type: BLOOD SPECIMEN Performed By: #### 5 8410-2 ####[facility]ORATORYCLIA [id number] [address] RBC (Bld) [#/Vol] 4.27 10*6/uL Normal 4.20-6.00 [facility] Comment on above: Order Comment: Speci men Type: BLOOD SPECIMEN Performed By: #### 5 8410-2 ####[facility]ORATORYCLIA [id number] [address] WBC (Bld) [#/Vol] 11.06 10*3/uL High 3.70-11.00 [facility] Comment on above: Order Comment: Speci men Type: BLOOD SPECIMEN Performed By: #### 5 8410-2 ####[facility]ORATORYCLIA [id number] [address] CONSULT PROGon 06-08-2021 CONSULT PROG Normal [facility] CT BRAIN WO IVCONon 06-08-19 CT BRAIN WO IVCON Normal [facility] Magnesium SerPl-mCncon 06-08 Magnesium [Mass/Vol] 2.8 mg/dL High 1.7-2.3 [facility] Comment on above: Order Comment: Speci men Type: BLOOD SPECIMEN Performed By: #### 2 4321-2, 2777-1, 31662-3 ####[facility]ORATORYCLIA [id number] [address] Microorganism Spec Culton Microorganism identified Cx Nom (Unsp spec) CULTURE, FUNGAL: No Fungus isolated after 28 days FUNGAL SMEAR: No fungus seen [facility] Comment on above: Performed By: #### 1 1475-1 ####[facility]ORATORYCLIA [id number] [address] NURSING PROGon 06-08-2021 NURSING PROG Normal [facility] OPERATIVE NOon 06-08-2021 OPERATIVE NO Normal [facility] OPERATIVE NO [facility] PT panel Coag (PPP)on 2021 INR Coag (PPP) [Relative time] 1.1 {INR} Normal 0.9-1.3 [facility] Comment on above: Order Comment: Speci men Type: BLOOD SPECIMEN Result Comment: Yris min K Antagonist (VKA) Therapeutic Range: INR 2 to 3 (Target INR of 2.5)Note: For patients treated with VKA drugs, such as warfarin, the [place] [employer] 2012 Guideline recommends [...] al. Chest 2012, 141:7S-47SNishimura RA, et al. [facility] 2017, 70: 252-289 Performed By: #### 3 4528-0, 20630-7 ####[facility] LABORATORYCLIA [id number] [address] OF [facility] PT Coag (PPP) [Time] 11.9 s Normal 9.7-13.0 [facility] Comment on above: Order Comment: Speci men Type: BLOOD SPECIMEN Performed By: #### 3 4528-0, 38312-6 ####[facility]ORATORYCLIA [id number] [place] [address] [place] Phosphate SerPl-mCncon 06-08 Phosphate [Mass/Vol] 2.3 mg/dL Low 2.7-4.8 [facility] Comment on above: Order Comment: Speci men Type: BLOOD SPECIMEN Performed By: #### 2 4321-2, 2777-1, 15682-4 ####[facility]ORATORYCLIA [id number] [address] [place] aPTT PPPon 06-08-2021 aPTT Coag (PPP) [Time] 24.2 s Normal 23.0-32.4 [facility] Comment on above: Order Comment: Speci men Type: BLOOD SPECIMEN Performed By: #### 3 4528-0, 26225-4 ####[facility]ORATORYCLIA [id number] [address] [place] ALLIED HEALTHon 06-07-2021 ALLIED HEALTH Normal [facility] ALLIED HEALTH Normal [facility] ALLIED HEALTH Normal [facility] Bacteria CSF Culton 06-07-19 22 Bacteria identified Cx Nom (CSF) CULTURE, CSF: No growth 14 days GRAM STAIN: No organisms seen Rare Mononuclear cells Rare Polymorphonuclear leukocytes Gram stain performed on cytospun specimen. Normal [facility] Comment on above: Performed By: #### 6 06-4 ####[facility]ORATORYCLIA [id number] [place] [address] [place] Basic metabolic 2000 panelon 06-07-2021 Anion gap [Moles/Vol] 9 mmol/L Normal 9-18 [facility] Comment on above: Order Comment: Speci men Type: BLOOD SPECIMEN Performed By: #### 1 9123-9, 2777-, 06436-7 ####[facility]ORATORYCLIA [id number] [place] [address] [place] Calcium [Mass/Vol] 8.8 mg/dL Normal 8.5-10.2 [facility] Comment on above: Order Comment: Speci men Type: BLOOD SPECIMEN Performed By: #### 1 9123-9, 2776-, 69085-0 ####[facility]ORATORYCLIA [id number] [place] [address] [place] Chloride [Moles/Vol] 111 mmol/L High 97-105 [facility] Comment on above: Order Comment: Speci men Type: BLOOD SPECIMEN Performed By: #### 1 9123-9, 2776-05, 26118-9 ####[facility]ORATORYCLIA [id number] [place] [address] [place] CO2 [Moles/Vol] 27 mmol/L Normal 22-30 [facility] Comment on above: Order Comment: Speci men Type: BLOOD SPECIMEN Performed By: #### 1 9123-9, 2777-1, 23849-3 ####[facility]ORATORYCLIA [id number] [place] [address] [place] Creatinine [Mass/Vol] 0.66 mg/dL Low 0.73-1.22 [facility] Comment on above: Order Comment: Speci men Type: BLOOD SPECIMEN Performed By: #### 1 9123-9, 2777-1, 81911-3 ####[facility] LABORATORYCLIA [id number] [place] [id number] [place] GFR/1.73 sq M.predicted MDRD (S/P/Bld) [Vol rate/Area] mL/min/{1.73_m2} Normal [facility] Comment on above: Order Comment: Speci [...] GFR. Performed By: #### 1 9123-9, 2777-1, 20495-3 ####[facility] [id number] [place] [id number] [place] Glucose [Mass/Vol] 123 mg/dL High 74-99 [facility] Comment on above: Order Comment: [facility] Type: BLOOD SPECIMEN Result Comment: The [place] [employer] (ADA) provides guidance for cutoff [...] Standards of Medical Care in Diabetes 2016, [place] [employer]. Diabetes Care. 2016.39(Suppl 1). Performed By: #### 1 9123-9, 27711-04, ####[facility]ORATORYCLIA [id number] [address] STATES OF [facility] Potassium [Moles/Vol] 3.6 mmol/L Low 3.7-5.1 [facility] Comment on above: Order Comment: Speci men Type: BLOOD SPECIMEN Performed By: #### 1 9123-9, 27711-04, 56902-3 ####[facility]ORATORYCLIA [id number] [address] Sodium [Moles/Vol] 147 mmol/L High 136-144 [facility] Comment on above: Order Comment: Speci men Type: BLOOD SPECIMEN Performed By: #### 1 9123-9, 27711-04, ####[facility]ORATORYCLIA [id number] [address] Urea nitrogen [Mass/Vol] 30 mg/dL High 9-24 [facility] Comment on above: Order Comment: Speci men Type: BLOOD SPECIMEN Performed By: #### 1 9123-9, 2776-05, ####[facility]ORATORYCLIA [id number] [address] CBC W Auto Differential pane l (Bld)on 06-07-2021 Basophils (Bld) [#/Vol] 10*3/uL Normal <0.11 [facility] Comment on above: Order Comment: Speci men Type: BLOOD SPECIMEN Performed By: #### 5 7021-8 ####[facility] LABORATORYCLIA [id number] [address] Basophils/100 WBC (Bld) 0.2 % Normal [facility] Comment on above: Order Comment: Speci men Type: BLOOD SPECIMEN Performed By: #### 5 7021-8 ####[facility]ORATORYCLIA [id number] [address] Differential cell count method Nom (Bld) Auto Normal [facility] Comment on above: Order Comment: Speci men Type: BLOOD SPECIMEN Performed By: #### 5 7021-8 ####[facility]ORATORYCLIA [id number] [address] Eosinophils (Bld) [#/Vol] 0.06 10*3/uL Normal <0.46 [facility] Comment on above: Order Comment: Speci men Type: BLOOD SPECIMEN Performed By: #### 5 7021-8 ####[facility]ORATORYCLIA [id number] [address] Eosinophils/100 WBC (Bld) 0.6 % Normal [facility] Comment on above: Order Comment: Speci men Type: BLOOD SPECIMEN Performed By: #### 5 7021-8 ####[facility]ATORYCLIA [id number] [address] Erythrocyte distribution width (RBC) [Ratio] 15.8 % High 11.5-15.0 [facility] Comment on above: Order Comment: Speci men Type: BLOOD SPECIMEN Performed By: #### 5 7021-8 ####[facility]ORATORYCLIA [id number] [address] Hematocrit (Bld) [Volume fraction] 40.4 % Normal 39.0-51.0 [facility] Comment on above: Order Comment: Speci men Type: BLOOD SPECIMEN Performed By: #### 5 7021-8 ####[facility]ATORYCLIA [id number] [address] Hemoglobin (Bld) [Mass/Vol] 12.4 g/dL Low 13.0-17.0 [facility] Comment on above: Order Comment: Speci men Type: BLOOD SPECIMEN Performed By: #### 5 7021-8 ####[facility]ATORYCLIA [id number] [address] IMMATURE GRAN % 0.7 % Normal [facility] Comment on above: Order Comment: Speci men Type: BLOOD SPECIMEN Performed By: #### 5 7021-8 ####[facility]ORATORYCLIA [id number] [address] IMMATURE GRAN ABS 0.07 k/uL Normal <0.10 [facility] Comment on above: Order Comment: Speci men Type: BLOOD SPECIMEN Performed By: #### 5 7021-8 ####[facility] LABORATORYCLIA [id number] [address] Lymphocytes (Bld) [#/Vol] 1.43 10*3/uL Normal 1.00-4.00 [facility] Comment on above: Order Comment: Speci men Type: BLOOD SPECIMEN Performed By: #### 5 7021-8 ####[facility]ORATORYCLIA [id number] [address] Lymphocytes/100 WBC (Bld) 14.1 % Normal [facility] Comment on above: Order Comment: Speci men Type: BLOOD SPECIMEN Performed By: #### 5 7021-8 ####[facility]ORATORYCLIA [id number] [address] MCH (RBC) [Entitic mass] 27.6 pg Normal 26.0-34.0 [facility] Comment on above: Order Comment: Speci men Type: BLOOD SPECIMEN Performed By: #### 5 7021-8 ####[facility]ORATORYCLIA [id number] [address] MCHC (RBC) [Mass/Vol] 30.7 g/dL Normal 30.5-36.0 [facility] Comment on above: Order Comment: Speci men Type: BLOOD SPECIMEN Performed By: #### 5 7021-8 ####[facility]ORATORYCLIA [id number] [address] MCV (RBC) [Entitic vol] 89.8 fL Normal 80.0-100.0 [facility] Comment on above: Order Comment: Speci men Type: BLOOD SPECIMEN Performed By: #### 5 7021-8 ####[facility]ORATORYCLIA [id number] [place] [address] Monocytes (Bld) [#/Vol] 0.82 10*3/uL Normal <0.87 [facility] Comment on above: Order Comment: Speci men Type: BLOOD SPECIMEN Performed By: #### 5 7021-8 ####[facility]ORATORYCLIA [id number] [address] Monocytes/100 WBC (Bld) 8.1 % Normal [facility] Comment on above: Order Comment: Speci men Type: BLOOD SPECIMEN Performed By: #### 5 7021-8 ####[facility]ORATORYCLIA [id number] [address] Neutrophils (Bld) [#/Vol] 7.74 10*3/uL High 1.45-7.50 [facility] Comment on above: Order Comment: Speci men Type: BLOOD SPECIMEN Performed By: #### 5 7021-8 ####[facility] LABORATORYCLIA [id number] [address] Neutrophils/100 WBC (Bld) 76.3 % Normal [facility] Comment on above: Order Comment: Speci men Type: BLOOD SPECIMEN Performed By: #### 5 7021-8 ####[facility]ORATORYCLIA [id number] [address] Nucleated RBC (Bld) [#/Vol] 10*3/uL Normal <0.01 [facility] Comment on above: Order Comment: Speci men Type: BLOOD SPECIMEN Performed By: #### 5 7021-8 ####[facility]ATORYCLIA [id number] [address] Nucleated RBC/100 WBC (Bld) [Ratio] 0.0 /100 WBC Normal 0.0 [facility] Comment on above: Order Comment: Speci men Type: BLOOD SPECIMEN Performed By: #### 5 7021-8 ####[facility]ATORYCLIA [id number] [address] Platelet mean volume (Bld) [Entitic vol] 10.4 fL Normal 9.0-12.7 [facility] Comment on above: Order Comment: Speci men Type: BLOOD SPECIMEN Performed By: #### 5 7021-8 ####[facility]ORATORYCLIA [id number] [address] Platelets (Bld) [#/Vol] 236 10*3/uL Normal 150-400 [facility] Comment on above: Order Comment: Speci men Type: BLOOD SPECIMEN Performed By: #### 5 7021-8 ####[facility]ATORYCLIA [id number] [address] RBC (Bld) [#/Vol] 4.50 10*6/uL Normal 4.20-6.00 [facility] Comment on above: Order Comment: Speci men Type: BLOOD SPECIMEN Performed By: #### 5 7021-8 ####[facility]ORATORYCLIA [id number] [address] WBC (Bld) [#/Vol] 10.14 10*3/uL Normal 3.70-11.00 [facility] Comment on above: Order Comment: Speci men Type: BLOOD SPECIMEN Performed By: #### 5 7021-8 ####[facility]ORATORYCLIA [id number] [address] CBC panel Auto (Bld)on 06-07 Erythrocyte distribution width (RBC) [Ratio] 15.8 % High 11.5-15.0 [facility] Comment on above: Order Comment: Speci men Type: BLOOD SPECIMEN Performed By: #### 5 8410-2 ####[facility]ORATORYCLIA [id number] [address] Hematocrit (Bld) [Volume fraction] 40.0 % Normal 39.0-51.0 [facility] Comment on above: Order Comment: Speci men Type: BLOOD SPECIMEN Performed By: #### 5 8410-2 ####[facility]ATORYCLIA [id number] [address] Hemoglobin (Bld) [Mass/Vol] 12.3 g/dL Low 13.0-17.0 [facility] Comment on above: Order Comment: Speci men Type: BLOOD SPECIMEN Performed By: #### 5 8410-2 ####[facility]ORATORYCLIA [id number] [address] MCH (RBC) [Entitic mass] 27.3 pg Normal 26.0-34.0 [facility] Comment on above: Order Comment: Speci men Type: BLOOD SPECIMEN Performed By: #### 5 8410-2 ####[facility]ORATORYCLIA [id number] [address] MCHC (RBC) [Mass/Vol] 30.8 g/dL Normal 30.5-36.0 [facility] Comment on above: Order Comment: Speci men Type: BLOOD SPECIMEN Performed By: #### 5 8410-2 ####[facility]ORATORYCLIA [id number] [address] MCV (RBC) [Entitic vol] 88.7 fL Normal 80.0-100.0 [facility] Comment on above: Order Comment: Speci men Type: BLOOD SPECIMEN Performed By: #### 5 8410-2 ####[facility]ATORYCLIA [id number] [address] Nucleated RBC (Bld) [#/Vol] 10*3/uL Normal <0.01 [facility] Comment on above: Order Comment: Speci men Type: BLOOD SPECIMEN Performed By: #### 5 8410-2 ####[facility]ATORYCLIA [id number] [address] Platelet mean volume (Bld) [Entitic vol] 10.0 fL Normal 9.0-12.7 [facility] Comment on above: Order Comment: Speci men Type: BLOOD SPECIMEN Performed By: #### 5 8410-2 ####[facility]ORATORYCLIA [id number] [address] OF [facility] Platelets (Bld) [#/Vol] 234 10*3/uL Normal 150-400 [facility] Comment on above: Order Comment: Speci men Type: BLOOD SPECIMEN Performed By: #### 5 8410-2 ####[facility]ORATORYCLIA [id number] [address] [place] RBC (Bld) [#/Vol] 4.51 10*6/uL Normal 4.20-6.00 [facility] Comment on above: Order Comment: Speci men Type: BLOOD SPECIMEN Performed By: #### 5 8410-2 ####[facility]ORYCLIA [id number] [address] WBC (Bld) [#/Vol] 11.47 10*3/uL High 3.70-11.00 [facility] Comment on above: Order Comment: Speci men Type: BLOOD SPECIMEN Performed By: #### 5 8410-2 ####[facility]ORATORYCLIA [id number] [address] OF [facility] CONSULT PROGon 06-07-2021 CONSULT PROG Normal [facility] CONSULT PROG Normal [facility] CSF MANUAL DIFFon 06-07-2021 DIF TTL, CSF 92 cells counted Normal [facility] Comment on above: Order Comment: Speci men Type: CEREBROSPINAL FLUID Performed By: #### 3 4563-7, [id number], [id number] ####[facility] LABORATORYCLIA [id number] [address] OF [place] EOSIN%, CSF 1 % Normal [facility] Comment on above: Order Comment: Speci men Type: CEREBROSPINAL FLUID Performed By: #### 3 4563-7, [id number], [id number] ####[facility]ORATORYCLIA [id number] [address] [place] LYMPH%, CSF 21 % Low 50-90 [facility] Comment on above: Order Comment: Speci men Type: CEREBROSPINAL FLUID Performed By: #### 3 4563-7, [id number], [id number] ####[place] [facility] [facility] LABORATORYCLIA [id number] [place] [address] [place] MACRO%, CSF 27 % High <1 [facility] Comment on above: Order Comment: Speci men Type: CEREBROSPINAL FLUID Result Comment: Tati ected result: Previously reported as 22 % on 06/07/2021 at 1:49 PM EST. Performed By: #### 3 4563-7, [id number], [id number] ####[facility]ATORYCLIA [id number] [address] [place] MONO%, CSF 36 % Normal 10-50 [facility] Comment on above: Order Comment: Speci men Type: CEREBROSPINAL FLUID Performed By: #### 3 4563-7, [id number], [id number] ####[facility] LABORATORYCLIA [id number] [address] [place] NEUT%, CSF 11 % High 0-3 [facility] Comment on above: Order Comment: Speci men Type: CEREBROSPINAL FLUID Performed By: #### 3 4563-7, [id number], [id number] ####[facility]ORATORYCLIA [id number] [address] OF [facility] OTHER CL%, CSF 4 % Normal [facility] Comment on above: Order Comment: Speci men Type: CEREBROSPINAL FLUID Result Comment: Path review to follow.Corrected result: Previously reported as 10 % on 06/07/2021 at 1:49 PM EST. Performed By: #### 3 4563-7, [id number], [id number] ####[facility]ORYCLIA [id number] [address] CSF PATHOLOGIST INTERP (LAB REFLEX ORDER-NO BILL)on 06-07-2021 CSF STAFF REVIEW Negative for maligna nt cells. Rare immature myeloid or ventricular lining cells. Normal [facility] Comment on above: Order Comment: Speci men Type: CEREBROSPINAL FLUID Performed By: #### 3 4563-7, [id number], [id number] ####[facility]ORYCLIA [id number] [place], [place] [id number] [place] [address] Pathologist name Reviewed by Eloise rebolledo MD Normal [facility] Comment on above: Order Comment: Speci men Type: CEREBROSPINAL FLUID Performed By: #### 3 4563-7, [id number], [id number] ####[facility]ORYCLIA [id number] [place], [place] [address] [place] [address] [place] [address] BRAIN WO IVCONon 06-07-19 CT BRAIN WO IVCON Normal [facility] CT BRAIN WO IVCON Normal [facility] Cell count panel (CSF)on Clarity (CSF) Clear Normal Clear [facility] Comment on above: Order Comment: Speci men Type: CEREBROSPINAL FLUID Performed By: #### 3 4563-7, [id number], [id number] ####[facility]ORYCLIA [id number] [place], [place] [address] [place] [address] Clarity (Unsp spec) Not Indicated Normal Clear [facility] Comment on above: Order Comment: Speci men Type: CEREBROSPINAL FLUID Performed By: #### 3 4563-7, [id number], [id number] ####[facility]ORYCLIA [id number] [address] Color (CSF) Colorless Normal Colorless [facility] Comment on above: Order Comment: Speci men Type: CEREBROSPINAL FLUID Performed By: #### 3 4563-7, [id number], [id number] ####[facility]ORYCLIA [id number] [address] Color (Spun CSF) Not Indicated Normal Colorless [facility] Comment on above: Order Comment: Speci men Type: CEREBROSPINAL FLUID Performed By: #### 3 4563-7, [id number], [id number] ####[facility]ORYCLIA [id number] [place], [place] [address] [place] [address] CSF TUBE NUMBER Sterile Container Normal [facility] Comment on above: Order Comment: Speci men Type: CEREBROSPINAL FLUID Performed By: #### 3 4563-7, [id number], [id number] ####[facility]ORATORYCLIA [id number] [address] OF [facility] RBC Manual cnt (CSF) [#/Vol] 42 cells/uL High 0-5 [facility] Comment on above: Order Comment: Speci men Type: CEREBROSPINAL FLUID Performed By: #### 3 4563-7, [id number], [id number] ####[facility]ATORYCLIA [id number] [address] WBC Manual cnt (CSF) [#/Vol] 1 cells/uL Normal 0-5 [facility] Comment on above: Order Comment: Speci men Type: CEREBROSPINAL FLUID Performed By: #### 3 4563-7, [id number], [id number] ####[facility]ORATORYCLIA [id number] [address] OF [place] Glucose CSF-mCncon Glucose (CSF) [Mass/Vol] 92 mg/dL High 40-70 [facility] Comment on above: Order Comment: Speci men Type: CEREBROSPINAL FLUID Result Comment: Lumb ar CSF glucose values of healthy patients are approximately 60% of the plasma values and must always be compared with a concurrently measured plasma value for adequate clinical interpretation.References: 1. Glucose HK (GLUC3) [package insert V 12.0 [place]e]. [employer], [place], [place]. September 2015. 2. Michelle Moore, Loki, H. (2015). Chapter 7: Glucose and Lactate. FGarfield Alcocer al.(eds.), Cerebrospinal Fluid in Clinical Neurology. [place]: [employer]. Performed By: #### 2 880-3, 2342-4 ####[facility]ORATORYCLIA [id number] [address] Lactate (Bld) [Moles/Vol]on 06-07-2021 Lactate [Moles/Vol] 0.9 mmol/L Normal 0.5-2.2 [facility] Comment on above: Order Comment: Speci men Type: BLOOD SPECIMEN Performed By: #### 3 2693-4 ####[facility]ORATORYCLIA [id number] [address] Lipase SerPl-cCncon 06-07-19 22 Lipase [Catalytic activity/Vol] 35 U/L Normal 16-61 [facility] Comment on above: Order Comment: Speci men Type: BLOOD SPECIMEN Performed By: #### 3 040-3, PROCAL ####[facility] LABORATORYCLIA [id number] [address] Magnesium SerPl-mCncon 06-07 Magnesium [Mass/Vol] 2.7 mg/dL High 1.7-2.3 [facility] Comment on above: Order Comment: Speci men Type: BLOOD SPECIMEN Performed By: #### 1 9123-9, 2777-1, 81324-0 ####[facility]ORATORYCLIA [id number] [address] PROCALCITONIN (LAB)on 2021 Procalcitonin [Mass/Vol] 0.13 ng/mL High <0.09 [facility] Comment on above: Order Comment: Speci men Type: BLOOD SPECIMEN Result Comment: For a guided interpretation of test results, please visit the Change in Procalcitonin Calculator, [email or web address]. Performed By: #### 3 040-3, PROCAL ####[facility]ORATORYCLIA [id number] [address] Phosphate SerPl-mCncon 06-07 Phosphate [Mass/Vol] 1.9 mg/dL Low 2.7-4.8 [facility] Comment on above: Order Comment: Speci men Type: BLOOD SPECIMEN Performed By: #### 1 9123-9, 2777-1, 86051-8 ####[facility]ORATORYCLIA [id number] [address] Prot CSF-mCncon 06-07-2021 Protein (CSF) [Mass/Vol] 33 mg/dL Normal 15-45 [facility] Comment on above: Order Comment: Speci men Type: CEREBROSPINAL FLUID Performed By: #### 2 880-3, 2342-4 ####[facility]ORATORYCLIA [id number] [address] SARS-CoV-2 RNA Resp Ql MEGAN+p robeon 06-07-2021 SARS-CoV-2 (COVID-19) RNA MEGAN+probe Ql (Resp) COVID 19 RESULT: SARS-CoV-2 (Agent of COVID-19) Not Detected by PCR. This test has been authorized by FDA under an Emergency Use Authorization (EUA). [facility] Comment on above: Performed By: #### 9 4500-6 ####[facility]ORATORYCLIA [id number] [address] TYPE AND SCREENon 06-07-2021 ABO O [facility] Comment on above: Order Comment: Speci men Type: BLOOD SPECIMEN Performed By: #### T SCR ####[facility] BLOOD BANKCLIA [id number] [address] HISTORICAL AB SCR STATUS Negative [facility] Comment on above: Order Comment: Speci men Type: BLOOD SPECIMEN Performed By: #### T SCR ####[facility] BLOOD BANKCLIA [id number] [address] Rh Nom (Bld) Positive [facility] Comment on above: Order Comment: Speci men Type: BLOOD SPECIMEN Performed By: #### T SCR ####[facility] BLOOD BANKCLIA [id number] [address] TYPE AND SCREEN EXPIRATION 06/10/2021 23:59 [facility] Comment on above: Order Comment: Speci men Type: BLOOD SPECIMEN Performed By: #### T SCR ####[facility] BLOOD BANKCLIA [id number] [address] Vancomycin random [Mass/Vol] on 06-07-2021 Vancomycin [Mass/Vol] 16.5 ug/mL Normal 10.0-20.0 [facility] Comment on above: Order Comment: Speci men Type: BLOOD SPECIMEN Result Comment: Refe rence ranges and high/low indicator flags are provided as general guidelines only. The treating physician must determine appropriate target levels/dosing based on the specific clinical situation. Performed By: #### 4 091-5 ####[facility]ORYCLIA [id number] [place] [address] [place] XR CHEST 1V FRONTAL PORTon 0 06-07-2021 XR CHEST 1V FRONTAL PORT Normal [facility] Basic metabolic 2000 panelon 06-06-2021 Anion gap [Moles/Vol] 11 mmol/L Normal 9-18 [facility] Comment on above: Order Comment: Speci men Type: BLOOD SPECIMEN Performed By: #### 2 1-2, , 2776-05 ####[facility]ORYCLIA [id number] [place] [address] [place] Calcium [Mass/Vol] 8.6 mg/dL Normal 8.5-10.2 [facility] Comment on above: Order Comment: Speci men Type: BLOOD SPECIMEN Performed By: #### 2 1-2, , 2776-05 ####[facility]ATORYCLIA [id number] [address] STATES OF [facility] Chloride [Moles/Vol] 108 mmol/L High 97-105 [facility] Comment on above: Order Comment: Speci men Type: BLOOD SPECIMEN Performed By: #### 2 1-2, , 2776-05 ####[facility]ATORYCLIA [id number] [place] [address] [place] CO2 [Moles/Vol] 25 mmol/L Normal 22-30 [facility] Comment on above: Order Comment: Speci men Type: BLOOD SPECIMEN Performed By: #### 2 4321-2, , 2776-05 ####[facility]ORYCLIA [id number] [place] [address] [place] Creatinine [Mass/Vol] 0.76 mg/dL Normal 0.73-1.22 [facility] Comment on above: Order Comment: Speci [facility] Type: BLOOD SPECIMEN Performed By: #### 2 4321-2, 29131-0, 2777-1 ####[facility] LABORATORYCLIA [id number] [place] [address] [place] GFR/1.73 sq M.predicted MDRD (S/P/Bld) [Vol rate/Area] mL/min/{1.73_m2} Normal [facility] Comment on above: Order Comment: Speci [...] actual GFR. Performed By: #### 2 4321-2, 17111-0, 2777-1 ####[facility] [id number] [place] [id number] [place] Glucose [Mass/Vol] 116 mg/dL High 74-99 [facility] Comment on above: Order Comment: [facility] Type: BLOOD SPECIMEN Result Comment: The [place] Diabetes Association (ADA) provides guidance for cutoff [...] Standards of Medical Care in Diabetes 2016, [place] [employer]. Diabetes Care. 2016.39(Suppl 1). Performed By: #### 2 4321-2, , 2776-05 ####[facility] LABORATORYCLIA [id number] [place], [place] [address] [place] [address] [place] [facility] Potassium [Moles/Vol] 3.5 mmol/L Low 3.7-5.1 [facility] Comment on above: Order Comment: Speci men Type: BLOOD SPECIMEN Performed By: #### 2 4321-2, , 2776-05 ####[facility]ATORYCLIA [id number] [place] [address] [place] [facility] Sodium [Moles/Vol] 144 mmol/L Normal 136-144 [facility] Comment on above: Order Comment: Speci men Type: BLOOD SPECIMEN Performed By: #### 2 4321-2, , 2776-05 ####[facility]ORATORYCLIA [id number] [address] Urea nitrogen [Mass/Vol] 31 mg/dL High 9-24 [facility] Comment on above: Order Comment: Speci men Type: BLOOD SPECIMEN Performed By: #### 2 4321-2, , 2776-05 ####[facility]ORATORYCLIA [id number] [address] CASE MANAGEMon 06-06-2021 CASE MANAGEM Normal [facility] CBC panel Auto (Bld)on 06-06 Erythrocyte distribution width (RBC) [Ratio] 15.8 % High 11.5-15.0 [facility] Comment on above: Order Comment: Speci men Type: BLOOD SPECIMEN Performed By: #### 5 8410-2 ####[facility] LABORATORYCLIA [id number] [address] Hematocrit (Bld) [Volume fraction] 39.5 % Normal 39.0-51.0 [facility] Comment on above: Order Comment: Speci men Type: BLOOD SPECIMEN Performed By: #### 5 8410-2 ####[facility]ORYCLIA [id number] [address] Hemoglobin (Bld) [Mass/Vol] 12.2 g/dL Low 13.0-17.0 [facility] Comment on above: Order Comment: Speci men Type: BLOOD SPECIMEN Performed By: #### 5 8410-2 ####[facility] LABORATORYCLIA [id number] [address] MCH (RBC) [Entitic mass] 27.8 pg Normal 26.0-34.0 [facility] Comment on above: Order Comment: Speci men Type: BLOOD SPECIMEN Performed By: #### 5 8410-2 ####[facility] LABORATORYCLIA [id number] [address] MCHC (RBC) [Mass/Vol] 30.9 g/dL Normal 30.5-36.0 [facility] Comment on above: Order Comment: Speci men Type: BLOOD SPECIMEN Performed By: #### 5 8410-2 ####[facility] LABORATORYCLIA [id number] [address] MCV (RBC) [Entitic vol] 90.0 fL Normal 80.0-100.0 [facility] Comment on above: Order Comment: Speci men Type: BLOOD SPECIMEN Performed By: #### 5 8410-2 ####[facility] LABORATORYCLIA [id number] [address] Nucleated RBC (Bld) [#/Vol] 10*3/uL Normal <0.01 [facility] Comment on above: Order Comment: Speci men Type: BLOOD SPECIMEN Performed By: #### 5 8410-2 ####[facility] LABORATORYCLIA [id number] [address] Platelet mean volume (Bld) [Entitic vol] 10.4 fL Normal 9.0-12.7 [facility] Comment on above: Order Comment: Speci men Type: BLOOD SPECIMEN Performed By: #### 5 8410-2 ####[facility] LABORATORYCLIA [id number] [address] Platelets (Bld) [#/Vol] 236 10*3/uL Normal 150-400 [facility] Comment on above: Order Comment: Speci men Type: BLOOD SPECIMEN Performed By: #### 5 8410-2 ####[facility]ORATORYCLIA [id number] [address] RBC (Bld) [#/Vol] 4.39 10*6/uL Normal 4.20-6.00 [facility] Comment on above: Order Comment: Speci men Type: BLOOD SPECIMEN Performed By: #### 5 8410-2 ####[facility]ORATORYCLIA [id number] [address] WBC (Bld) [#/Vol] 9.74 10*3/uL Normal 3.70-11.00 [facility] Comment on above: Order Comment: Speci men Type: BLOOD SPECIMEN Performed By: #### 5 8410-2 ####[facility] LABORATORYCLIA [id number] [address] CONSULT PROGon 06-06-2021 CONSULT PROG Normal [facility] CONSULT PROG Normal [facility] Magnesium SerPl-mCncon 06-06 Magnesium [Mass/Vol] 2.5 mg/dL High 1.7-2.3 [facility] Comment on above: Order Comment: Speci men Type: BLOOD SPECIMEN Performed By: #### 2 4321-2, 90336-8, 2777-1 ####[facility] LABORATORYCLIA [id number] [address] OF [facility] PT panel Coag (PPP)on 2021 INR Coag (PPP) [Relative time] 1.0 {INR} Normal 0.9-1.3 [facility] Comment on above: Order Comment: Speci men Type: BLOOD SPECIMEN Result Comment: Yris min K Antagonist (VKA) Therapeutic Range: INR 2 to 3 (Target INR of 2.5)Note: For patients treated with VKA drugs, such as warfarin, the [place] [employer] 2012 Guideline recommends [...] of 3).Jeffy GUZMAN, et al. Chest 2012, 141:7S-47SNishimpatricia RA, et al. [facility] 2017, 70: 252-289 Performed By: #### 3 4528-0, 17092-5 ####[facility] LABORATORYCLIA [id number] [address] OF [facility] PT Coag (PPP) [Time] 11.4 s Normal 9.7-13.0 [facility] Comment on above: Order Comment: Speci men Type: BLOOD SPECIMEN Performed By: #### 3 4528-0, 80094-8 ####[facility] LABORATORYCLIA [id number] [address] Phosphate SerPl-mCncon 06-06 Phosphate [Mass/Vol] 2.3 mg/dL Low 2.7-4.8 [facility] Comment on above: Order Comment: Speci men Type: BLOOD SPECIMEN Performed By: #### 2 4321-2, 17332-4, 2777-1 ####[facility] LABORATORYCLIA [id number] [address] THROMBOGRAPH HEPARINASE PANE Kiel 06-06-2021 Clot angle after addition of heparinase TEG (Bld) [Angle] 70.2 degrees Normal 47.0-74.0 [facility] Comment on above: Order Comment: Speci men Type: BLOOD SPECIMEN Performed By: #### T EGHPP ####[facility] LABORATORYCLIA [id number] [place] [address] [place] Clot Lysis 30 Min post maximum clot amplitude TEG (Bld) [Length fraction] 0.0 % Normal 0.0-8.0 [facility] Comment on above: Order Comment: Speci men Type: BLOOD SPECIMEN Performed By: #### T EGHPP ####[facility] LABORATORYCLIA [id number] [address] Clotting time after addition of heparinase TEG (Bld) 5.7 minutes Normal 4.0-10.0 [facility] Comment on above: Order Comment: Speci men Type: BLOOD SPECIMEN Performed By: #### T EGHPP ####[facility] LABORATORYCLIA [id number] [address] Coagulation index TEG Qn (Bld) 1.2 Normal -4.6-3.2 [facility] Comment on above: Order Comment: Speci men Type: BLOOD SPECIMEN Result Comment: The Coagulation Index, a secondary parameter, is labeled by the j2ee developer as for "research use only" and is used per the j2ee developer's instructions. Its performance characteristics were determined by [facility]'s Isrrael Perez [facility] Pathology and Laboratory Medicine [place] in a manner consistent with CLIA requirements. This test has not been cleared by the U.S. Food and Drug Administration. Performed By: #### T EGHPP ####[facility] LABORATORYCLIA [id number] [address] STATES OF [facility] Maximum clot firmness after addition of heparinase TEG (Bld) [Length] 64.0 mm Normal 51.0-75.0 [facility] Comment on above: Order Comment: Speci men Type: BLOOD SPECIMEN Performed By: #### T EGHPP ####[facility] LABORATORYCLIA [id number] [address] [place] Vancomycin random [Mass/Vol] on 06-06-2021 Vancomycin [Mass/Vol] 17.4 ug/mL Normal 10.0-20.0 [facility] Comment on above: Order Comment: Speci men Type: BLOOD SPECIMEN Result Comment: Refe rence ranges and high/low indicator flags are provided as general guidelines only. The treating physician must determine appropriate target levels/dosing based on the specific clinical situation. Performed By: #### 4 091-5 ####[facility] LABORATORYCLIA [id number] [address] Vancomycin [Mass/Vol] 13.5 ug/mL Normal 10.0-20.0 [facility] Comment on above: Order Comment: Speci men Type: BLOOD SPECIMEN Result Comment: Refe rence ranges and high/low indicator flags are provided as general guidelines only. The treating physician must determine appropriate target levels/dosing based on the specific clinical situation. Performed By: #### 4 091-5 ####[facility] LABORATORYCLIA [id number] [address] aPTT PPPon 06-06-2021 aPTT Coag (PPP) [Time] 27.8 s Normal 23.0-32.4 [facility] Comment on above: Order Comment: Speci men Type: BLOOD SPECIMEN Performed By: #### 3 4528-0, 38458-7 ####[facility] LABORATORYCLIA [id number] [address] Basic metabolic 2000 panelon 06-05-2021 Anion gap [Moles/Vol] 11 mmol/L Normal 9-18 [facility] Comment on above: Order Comment: Speci men Type: BLOOD SPECIMEN Performed By: #### 1 9123-9, 17727-3, 2776- ####[facility] LABORATORYCLIA [id number] [address] STATES [facility] Calcium [Mass/Vol] 8.6 mg/dL Normal 8.5-10.2 [facility] Comment on above: Order Comment: Speci men Type: BLOOD SPECIMEN Performed By: #### 1 9123-9, 01707-8, 2776-1 ####[facility]ORYCLIA [id number] [address] Chloride [Moles/Vol] 108 mmol/L High 97-105 [facility] Comment on above: Order Comment: Speci men Type: BLOOD SPECIMEN Performed By: #### 1 9123-9, 58697-6, 2776-05 ####[facility] LABORATORYCLIA [id number] [address] STATES OF [facility] CO2 [Moles/Vol] 25 mmol/L Normal 22-30 [facility] Comment on above: Order Comment: Speci men Type: BLOOD SPECIMEN Performed By: #### 1 9123-9, , 2776-05 ####[facility] LABORATORYCLIA [id number] [address] [place] Creatinine [Mass/Vol] 0.77 mg/dL Normal 0.73-1.22 [facility] Comment on above: Order Comment: Speci men Type: BLOOD SPECIMEN Performed By: #### 1 919, , 2776-05 ####[facility] LABORATORYCLIA [id number] [address] [place] GFR/1.73 sq M.predicted MDRD (S/P/Bld) [Vol rate/Area] mL/min/{1.73_m2} Normal [facility] Comment on above: Order Comment: Speci [...] actual GFR. Performed By: #### 1 9123-9, , 2776-05 ####[facility] LABORATORYCLIA [id number] [address] STATES OF [facility] Glucose [Mass/Vol] 96 mg/dL Normal 74-99 [facility] Comment on above: Order Comment: Speci men Type: BLOOD SPECIMEN Result Comment: The [place] Diabetes [employer] (ADA) provides guidance for cutoff [...] Standards of Medical Care in Diabetes 2016, [place] [employer]. Diabetes Care. 2016.39(Suppl 1). Performed By: #### 1 9123-9, 68992-5, 2776-05 ####[facility] LABORATORYCLIA [id number] [address] STATES OF [facility] Potassium [Moles/Vol] 3.9 mmol/L Normal 3.7-5.1 [facility] Comment on above: Order Comment: Speci men Type: BLOOD SPECIMEN Performed By: #### 1 9, 03404-2, 2776-05 ####[facility] LABORATORYCLIA [id number] [address] STATES [facility] Sodium [Moles/Vol] 144 mmol/L Normal 136-144 [facility] Comment on above: Order Comment: Speci men Type: BLOOD SPECIMEN Performed By: #### 1 239, 78975-7, 2776-05 ####[facility] LABORATORYCLIA [id number] [address] STATES [facility] Urea nitrogen [Mass/Vol] 26 mg/dL High 9-24 [facility] Comment on above: Order Comment: Speci men Type: BLOOD SPECIMEN Performed By: #### 1 23-9, 36851-3, 2776-05 ####[facility] LABORATORYCLIA [id number] [address] OF [facility] CBC panel Auto (Bld)on 06-05 Erythrocyte distribution width (RBC) [Ratio] 15.9 % High 11.5-15.0 [facility] Comment on above: Order Comment: Speci men Type: BLOOD SPECIMEN Performed By: #### 5 8410-2 ####[facility] LABORATORYCLIA [id number] [address] Hematocrit (Bld) [Volume fraction] 39.6 % Normal 39.0-51.0 [facility] Comment on above: Order Comment: Speci men Type: BLOOD SPECIMEN Performed By: #### 5 8410-2 ####[facility] LABORATORYCLIA [id number] [address] Hemoglobin (Bld) [Mass/Vol] 12.3 g/dL Low 13.0-17.0 [facility] Comment on above: Order Comment: Speci men Type: BLOOD SPECIMEN Performed By: #### 5 8410-2 ####[facility]ORATORYCLIA [id number] [address] MCH (RBC) [Entitic mass] 28.1 pg Normal 26.0-34.0 [facility] Comment on above: Order Comment: Speci men Type: BLOOD SPECIMEN Performed By: #### 5 8410-2 ####[facility]ORATORYCLIA [id number] [address] MCHC (RBC) [Mass/Vol] 31.1 g/dL Normal 30.5-36.0 [facility] Comment on above: Order Comment: Speci men Type: BLOOD SPECIMEN Performed By: #### 5 8410-2 ####[facility]ORATORYCLIA [id number] [address] MCV (RBC) [Entitic vol] 90.4 fL Normal 80.0-100.0 [facility] Comment on above: Order Comment: Speci men Type: BLOOD SPECIMEN Performed By: #### 5 8410-2 ####[facility]ORATORYCLIA [id number] [address] Nucleated RBC (Bld) [#/Vol] 10*3/uL Normal <0.01 [facility] Comment on above: Order Comment: Speci men Type: BLOOD SPECIMEN Performed By: #### 5 8410-2 ####[facility]ORATORYCLIA [id number] [address] Platelet mean volume (Bld) [Entitic vol] 10.5 fL Normal 9.0-12.7 [facility] Comment on above: Order Comment: Speci men Type: BLOOD SPECIMEN Performed By: #### 5 8410-2 ####[facility]ORATORYCLIA [id number] [address] Platelets (Bld) [#/Vol] 224 10*3/uL Normal 150-400 [facility] Comment on above: Order Comment: Speci men Type: BLOOD SPECIMEN Performed By: #### 5 8410-2 ####[facility]ATORYCLIA [id number] [address] RBC (Bld) [#/Vol] 4.38 10*6/uL Normal 4.20-6.00 [facility] Comment on above: Order Comment: Speci men Type: BLOOD SPECIMEN Performed By: #### 5 8410-2 ####[facility]ATORYCLIA [id number] [address] WBC (Bld) [#/Vol] 9.66 10*3/uL Normal 3.70-11.00 [facility] Comment on above: Order Comment: Speci men Type: BLOOD SPECIMEN Performed By: #### 5 8410-2 ####[facility]ORATORYCLIA [id number] [address] CONSULT PROGon 06-05-2021 CONSULT PROG Normal [facility] Gas and Carbon monoxide pane l (BldV)on 06-05-2021 Base excess Calc (BldV) [Moles/Vol] 1.8 mmol/L Normal 0-2 [facility] Comment on above: Order Comment: Speci men Type: VENOUS BLOOD SPECIMEN Performed By: #### 2 4344-4 ####[facility]ATORYCLIA [id number] [address] Body temperature 100.4 [degF] Normal [facility] Comment on above: Order Comment: Speci men Type: VENOUS BLOOD SPECIMEN Performed By: #### 2 4344-4 ####[facility]ATORYCLIA [id number] [address] CALCIUM IONIZED, PH CORRECTED 1.21 mmol/L Normal 1.08-1.30 [facility] Comment on above: Order Comment: Speci men Type: VENOUS BLOOD SPECIMEN Performed By: #### 2 4344-4 ####[facility]ATORYCLIA [id number] [address] Calcium.ionized (BldV) [Mass/Vol] 1.19 mmol/L Normal 1.08-1.30 [facility] Comment on above: Order Comment: Speci men Type: VENOUS BLOOD SPECIMEN Performed By: #### 2 4344-4 ####[facility]ATORYCLIA [id number] [address] Carboxyhemoglobin (BldV) [Mass fraction] 1.0 % Normal 0.0-2.0 [facility] Comment on above: Order Comment: Speci men Type: VENOUS BLOOD SPECIMEN Result Comment: Carb oxyhemoglobin Reference Range for Smokers: 2.0-8.0% Performed By: #### 2 4344-4 ####[facility]ATORYCLIA [id number] [address] CO2 (BldV) [Partial pressure] 41 mm[Hg] Low 42-55 [facility] Comment on above: Order Comment: Speci men Type: VENOUS BLOOD SPECIMEN Performed By: #### 2 4344-4 ####[facility]ATORYCLIA [id number] [address] CO2 [Moles/Vol] 23.4 mmol/L Low 25-29 [facility] Comment on above: Order Comment: Speci men Type: VENOUS BLOOD SPECIMEN Performed By: #### 2 4344-4 ####[facility]ATORYCLIA [id number] [address] CO2 adjusted to patient's actual temperature (BldV) [Partial pressure] 43 mmHg Normal 42-55 [facility] Comment on above: Order Comment: Speci men Type: VENOUS BLOOD SPECIMEN Performed By: #### 2 4344-4 ####[facility]ATORYCLIA [id number] [address] Glucose [Mass/Vol] 101 mg/dL Normal 60-105 [facility] Comment on above: Order Comment: Speci men Type: VENOUS BLOOD SPECIMEN Performed By: #### 2 4344-4 ####[facility]ATORYCLIA [id number] [address] HCO3 (Bld) [Moles/Vol] 26.0 mmol/L Normal 24-28 [facility] Comment on above: Order Comment: Speci men Type: VENOUS BLOOD SPECIMEN Performed By: #### 2 4344-4 ####[facility]ATORYCLIA [id number] [address] Hematocrit (Bld) [Volume fraction] 38.4 % Low 39.0-51.0 [facility] Comment on above: Order Comment: Speci men Type: VENOUS BLOOD SPECIMEN Performed By: #### 2 4344-4 ####[facility]ATORYCLIA [id number] [address] [facility] Hemoglobin (Bld) [Mass/Vol] 12.5 g/dL Low 13.0-17.0 [facility] Comment on above: Order Comment: Speci men Type: VENOUS BLOOD SPECIMEN Performed By: #### 2 4344-4 ####[facility]ATORYCLIA [id number] [address] Methemoglobin (Bld) [Mass fraction] % Normal 0.0-1.5 [facility] Comment on above: Order Comment: Speci men Type: VENOUS BLOOD SPECIMEN Performed By: #### 2 4344-4 ####[facility]ATORYCLIA [id number] [place] [address] [facility] [place] O2 THERAPY Ventilator Normal [facility] Comment on above: Order Comment: Speci men Type: VENOUS BLOOD SPECIMEN Performed By: #### 2 4344-4 ####[facility]ORATORYCLIA [id number] [place] [address] [facility] Oxygen (BldV) [Partial pressure] 44 mm[Hg] Normal 35-45 [facility] Comment on above: Order Comment: Speci men Type: VENOUS BLOOD SPECIMEN Performed By: #### 2 4344-4 ####[facility]ATORYCLIA [id number] [place], [place] [id number] [place] [address] Oxygen adjusted to patient's actual temperature (BldV) [Partial pressure] 46.8 mmHg High 35-45 [facility] Comment on above: Order Comment: Speci men Type: VENOUS BLOOD SPECIMEN Performed By: #### 2 4344-4 ####[facility]ATORYCLIA [id number] [place], [place] [id number] [place] [address] Oxygen saturation in Blood 76.5 % Normal 60-85 [facility] Comment on above: Order Comment: Speci men Type: VENOUS BLOOD SPECIMEN Performed By: #### 2 4344-4 ####[facility]ATORYCLIA [id number] [place], [place] [address] [place] [address] [place] Oxyhemoglobin (BldV) [Mass fraction] 75 % Normal 60-85 [facility] Comment on above: Order Comment: Speci men Type: VENOUS BLOOD SPECIMEN Performed By: #### 2 4344-4 ####[facility]ATORYCLIA [id number] [place] [address] [place] pH (BldV) 7.42 [pH] Normal 7.32-7.42 [facility] Comment on above: Order Comment: Speci men Type: VENOUS BLOOD SPECIMEN Performed By: #### 2 4344-4 ####[facility]ATORYCLIA [id number] [place], [place] [address] [place] [address] [place] pH adjusted to patient's actual temperature (BldV) 7.40 Normal 7.32-7.42 [facility] Comment on above: Order Comment: Speci men Type: VENOUS BLOOD SPECIMEN Performed By: #### 2 4344-4 ####[facility]ORATORYCLIA [id number] [address] [facility] Potassium [Moles/Vol] 3.7 mmol/L Normal 3.5-5.0 [facility] Comment on above: Order Comment: Speci men Type: VENOUS BLOOD SPECIMEN Performed By: #### 2 4344-4 ####[facility]ATORYCLIA [id number] [address] [facility] Sodium [Moles/Vol] 141 mmol/L Normal 136-144 [facility] Comment on above: Order Comment: Speci men Type: VENOUS BLOOD SPECIMEN Performed By: #### 2 4344-4 ####[facility]ORATORYCLIA [id number] [address] [facility] Magnesium SerPl-mCncon 06-05 Magnesium [Mass/Vol] 2.3 mg/dL Normal 1.7-2.3 [facility] Comment on above: Order Comment: Speci men Type: BLOOD SPECIMEN Performed By: #### 1 9123-9, 84326-8, 27711-04 ####[facility]ATORYCLIA [id number] [address] STATES OF [facility] Phosphate SerPl-mCncon 06-05 Phosphate [Mass/Vol] 2.9 mg/dL Normal 2.7-4.8 [facility] Comment on above: Order Comment: Speci men Type: BLOOD SPECIMEN Performed By: #### 1 9123-9, 18657-5, 2777- ####[facility]ORATORYCLIA [id number] [address] [place] Vancomycin random [Mass/Vol] on 06-05-2021 Vancomycin [Mass/Vol] 23.2 ug/mL High 10.0-20.0 [facility] Comment on above: Order Comment: Speci men Type: BLOOD SPECIMEN Result Comment: Refe rence ranges and high/low indicator flags are provided as general guidelines only. The treating physician must determine appropriate target levels/dosing based on the specific clinical situation. Performed By: #### 4 091-5 ####[facility]ORATORYCLIA [id number] [place] [address] [place] (1,3)-F-X-IPWHEPhs 2 (1,3) B-D GLUCAN <31 Normal <60 [facility] Comment on above: Order Comment: Speci men Type: BLOOD SPECIMEN Performed By: #### B DGLUC ####[facility] LABCLIA [id number] [employer] [address] [facility] [place] [address] [place] (1,3) B-D GLUCAN, QUAL Negative Normal NEGAT [facility] Comment on above: Order Comment: Speci men Type: BLOOD SPECIMEN Result Comment: Cert ain fungi, such as the genus Cryptococcus which produces very low levels of (1,3)-sjja-I-hkpheq, may not result in serum (1,3)-hccw-V-xhgizr sufficiently elevated so as to be detected by the assay. Infections with fungi of the order Mucorales such as Absidia, Mucor and Rhizopus which are not known to produce (1,3)-mxcm-P-qzkwzn, are also observed to yield low serum (1,3)-kjac-S-trumkc titers.In addition, the yeast phase of Blastomyces dermatitidis produces little (1,3)-jsjl-E-bjylxi and may not be detected by the assay. Performed By: #### B DGLUC ####[facility] LABCLIA [id number] [employer] Fair value [address] [address] [place] ALLIED HEALTHon 06-04-2021 ALLIED HEALTH Normal [facility] ALLIED HEALTH Normal [facility] ARTERIAL BLOOD GASESon 06-04 Base excess Calc (Bld) [Moles/Vol] 3 mmol/L High 0-2 [facility] Comment on above: Order Comment: Speci men Type: ARTERIAL BLOOD SPECIMEN Performed By: #### A LLBG ####[facility]ORATORYCLIA [id number] [address] Body temperature 98.06 [degF] Normal [facility] Comment on above: Order Comment: Speci men Type: ARTERIAL BLOOD SPECIMEN Performed By: #### A LLBG ####[facility]ORATORYCLIA [id number] [address] CALCIUM IONIZED, PH CORRECTED 1.19 mmol/L Normal 1.08-1.30 [facility] Comment on above: Order Comment: Speci men Type: ARTERIAL BLOOD SPECIMEN Performed By: #### A LLBG ####[facility]ATORYCLIA [id number] [address] Calcium.ionized (BldV) [Mass/Vol] 1.14 mmol/L Normal 1.08-1.30 [facility] Comment on above: Order Comment: Speci men Type: ARTERIAL BLOOD SPECIMEN Performed By: #### A LLBG ####[facility]ORATORYCLIA [id number] [address] Carboxyhemoglobin (BldA) [Mass fraction] 1.2 % Normal 0.0-2.0 [facility] Comment on above: Order Comment: Speci men Type: ARTERIAL BLOOD SPECIMEN Result Comment: Carb oxyhemoglobin Reference Range for Smokers: 2.0-8.0% Performed By: #### A LLBG ####[facility]ORATORYCLIA [id number] [address] CO2 (Bld) [Partial pressure] 35 mm Hg Low 36-46 [facility] Comment on above: Order Comment: Speci men Type: ARTERIAL BLOOD SPECIMEN Performed By: #### A LLBG ####[facility]ORATORYCLIA [id number] [address] CO2 [Moles/Vol] 23.2 mmol/L Normal 22-28 [facility] Comment on above: Order Comment: Speci men Type: ARTERIAL BLOOD SPECIMEN Performed By: #### A LLBG ####[facility]ATORYCLIA [id number] [address] CO2 adjusted to patient's actual temperature (Bld) [Partial pressure] 34 mmHg Low 36-46 [facility] Comment on above: Order Comment: Speci men Type: ARTERIAL BLOOD SPECIMEN Performed By: #### A LLBG ####[facility]ATORYCLIA [id number] [address] Glucose [Mass/Vol] 115 mg/dL High 60-105 [facility] Comment on above: Order Comment: Speci men Type: ARTERIAL BLOOD SPECIMEN Performed By: #### A LLBG ####[facility]ORATORYCLIA [id number] [address] HCO3 (Bld) [Moles/Vol] 26 mmol/L Normal 22-26 [facility] Comment on above: Order Comment: Speci men Type: ARTERIAL BLOOD SPECIMEN Performed By: #### A LLBG ####[facility]ORATORYCLIA [id number] [address] Hematocrit (Bld) [Volume fraction] 35.3 % Low 39.0-51.0 [facility] Comment on above: Order Comment: Speci men Type: ARTERIAL BLOOD SPECIMEN Performed By: #### A LLBG ####[facility]ORATORYCLIA [id number] [address] Hemoglobin (Bld) [Mass/Vol] 11.5 g/dL Low 13.0-17.0 [facility] Comment on above: Order Comment: Speci men Type: ARTERIAL BLOOD SPECIMEN Performed By: #### A LLBG ####[facility]ORATORYCLIA [id number] [address] Methemoglobin (Bld) [Mass fraction] % Normal 0.0-1.5 [facility] Comment on above: Order Comment: Speci men Type: ARTERIAL BLOOD SPECIMEN Performed By: #### A LLBG ####[facility]ATORYCLIA [id number] [address] O2 THERAPY Ventilator Normal [facility] Comment on above: Order Comment: Speci men Type: ARTERIAL BLOOD SPECIMEN Performed By: #### A LLBG ####[facility]ORATORYCLIA [id number] [place], [place] [address] [place] [address] Oxygen (Bld) [Partial pressure] 66 mm Hg Low 85-95 [facility] Comment on above: Order Comment: Speci men Type: ARTERIAL BLOOD SPECIMEN Performed By: #### A LLBG ####[facility]ORATORYCLIA [id number] [address] Oxygen adjusted to patient's actual temperature (Bld) [Partial pressure] 64.3 mmHg Low 85-95 [facility] Comment on above: Order Comment: Speci men Type: ARTERIAL BLOOD SPECIMEN Performed By: #### A LLBG ####[facility]ATORYCLIA [id number] [place], [place] [address] [place] [address] OXYGEN SATURATION, ARTERIAL 95 % Normal 95-98 [facility] Comment on above: Order Comment: Speci men Type: ARTERIAL BLOOD SPECIMEN Performed By: #### A LLBG ####[facility]ATORYCLIA [id number] [address] Oxyhemoglobin (BldA) [Mass fraction] 93 % Low 95-98 [facility] Comment on above: Order Comment: Speci men Type: ARTERIAL BLOOD SPECIMEN Performed By: #### A LLBG ####[facility]ATORYCLIA [id number] [address] [place] pH (Bld) 7.49 [pH] High 7.35-7.45 [facility] Comment on above: Order Comment: Speci men Type: ARTERIAL BLOOD SPECIMEN Performed By: #### A LLBG ####[facility]ATORYCLIA [id number] [address] pH adjusted to patient's actual temperature (Bld) 7.49 High 7.35-7.45 [facility] Comment on above: Order Comment: Speci men Type: ARTERIAL BLOOD SPECIMEN Performed By: #### A LLBG ####[facility]ATORYCLIA [id number] [place], [place] [address] [place] [address] Potassium [Moles/Vol] 2.8 mmol/L Low 3.5-5.0 [facility] Comment on above: Order Comment: Speci men Type: ARTERIAL BLOOD SPECIMEN Performed By: #### A LLBG ####[facility]ORATORYCLIA [id number] [address] Bas Metab 2000 Pnl SerPlon 0 06-04-2021 Sodium [Moles/Vol] 143 mmol/L Normal 136-144 [facility] Comment on above: Order Comment: Speci men Type: BLOOD SPECIMEN Performed By: #### 2 777-1, , ####[facility]ORYCLIA [id number] [address] Order Comment: Speci men Type: ARTERIAL BLOOD SPECIMEN Performed By: #### A LLBG ####[facility]ATORYCLIA [id number] [address] Basic metabolic 2000 panelon 06-04-2021 Anion gap [Moles/Vol] 11 mmol/L Normal 9-18 [facility] Comment on above: Order Comment: Speci men Type: BLOOD SPECIMEN Performed By: #### 2 777-1, , ####[facility]ORYCLIA [id number] [address] Calcium [Mass/Vol] 8.5 mg/dL Normal 8.5-10.2 [facility] Comment on above: Order Comment: Speci men Type: BLOOD SPECIMEN Performed By: #### 2 777-1, , ####[facility]ORYCLIA [id number] [address] Chloride [Moles/Vol] 107 mmol/L High 97-105 [facility] Comment on above: Order Comment: Speci men Type: BLOOD SPECIMEN Performed By: #### 2 777-1, , ####[facility]ORATORYCLIA [id number] [address] STATES OF [facility] CO2 [Moles/Vol] 25 mmol/L Normal 22-30 [facility] Comment on above: Order Comment: Speci men Type: BLOOD SPECIMEN Performed By: #### 2 777-1, , ####[facility]ORATORYCLIA [id number] [address] STATES OF [facility] Creatinine [Mass/Vol] 0.77 mg/dL Normal 0.73-1.22 [facility] Comment on above: Order Comment: Speci men Type: BLOOD SPECIMEN Performed By: #### 2 777-1, , ####[facility]ORATORYCLIA [id number] [address] [place] GFR/1.73 sq M.predicted MDRD (S/P/Bld) [Vol rate/Area] mL/min/{1.73_m2} Normal [facility] Comment on above: Order Comment: Speci [...] GFR. Performed By: #### 2 777-1, , ####[facility]ORATORYCLIA [id number] [address] [place] Glucose [Mass/Vol] 107 mg/dL High 74-99 [facility] Comment on above: Order Comment: Speci men Type: BLOOD SPECIMEN Result Comment: The [place] [employer] (ADA) provides guidance for cutoff [...] Standards of Medical Care in Diabetes 2016, [place] [employer]. Diabetes Care. 2016.39(Suppl 1). Performed By: #### 2 777-1, , ####[facility]ORATORYCLIA [id number] [address] Potassium [Moles/Vol] 3.1 mmol/L Low 3.7-5.1 [facility] Comment on above: Order Comment: Speci men Type: BLOOD SPECIMEN Performed By: #### 2 777-1, , ####[facility]ATORYCLIA [id number] [address] Urea nitrogen [Mass/Vol] 19 mg/dL Normal 9-24 [facility] Comment on above: Order Comment: Speci men Type: BLOOD SPECIMEN Performed By: #### 2 777-1, , ####[facility]ATORYCLIA [id number] [address] CBC panel Auto (Bld)on 06-04 Erythrocyte distribution width (RBC) [Ratio] 15.8 % High 11.5-15.0 [facility] Comment on above: Order Comment: Speci men Type: BLOOD SPECIMEN Performed By: #### 5 8410-2 ####[facility]ORATORYCLIA [id number] [address] Hematocrit (Bld) [Volume fraction] 36.9 % Low 39.0-51.0 [facility] Comment on above: Order Comment: Speci men Type: BLOOD SPECIMEN Performed By: #### 5 8410-2 ####[facility]ATORYCLIA [id number] [address] Hemoglobin (Bld) [Mass/Vol] 11.2 g/dL Low 13.0-17.0 [facility] Comment on above: Order Comment: Speci men Type: BLOOD SPECIMEN Performed By: #### 5 8410-2 ####[facility]ATORYCLIA [id number] [address] MCH (RBC) [Entitic mass] 27.3 pg Normal 26.0-34.0 [facility] Comment on above: Order Comment: Speci men Type: BLOOD SPECIMEN Performed By: #### 5 8410-2 ####[facility]ORYCLIA [id number] [address] MCHC (RBC) [Mass/Vol] 30.4 g/dL Low 30.5-36.0 [facility] Comment on above: Order Comment: Speci men Type: BLOOD SPECIMEN Performed By: #### 5 8410-2 ####[facility]ORYCLIA [id number] [address] MCV (RBC) [Entitic vol] 89.8 fL Normal 80.0-100.0 [facility] Comment on above: Order Comment: Speci men Type: BLOOD SPECIMEN Performed By: #### 5 8410-2 ####[facility]ATORYCLIA [id number] [address] Nucleated RBC (Bld) [#/Vol] 10*3/uL Normal <0.01 [facility] Comment on above: Order Comment: Speci men Type: BLOOD SPECIMEN Performed By: #### 5 8410-2 ####[facility]ORYCLIA [id number] [address] Platelet mean volume (Bld) [Entitic vol] 10.7 fL Normal 9.0-12.7 [facility] Comment on above: Order Comment: Speci men Type: BLOOD SPECIMEN Performed By: #### 5 8410-2 ####[facility]ORYCLIA [id number] [address] Platelets (Bld) [#/Vol] 174 10*3/uL Normal 150-400 [facility] Comment on above: Order Comment: Speci men Type: BLOOD SPECIMEN Performed By: #### 5 8410-2 ####[facility]ORYCLIA [id number] [address] RBC (Bld) [#/Vol] 4.11 10*6/uL Low 4.20-6.00 [facility] Comment on above: Order Comment: Speci men Type: BLOOD SPECIMEN Performed By: #### 5 8410-2 ####[facility]ORYCLIA [id number] [address] WBC (Bld) [#/Vol] 8.29 10*3/uL Normal 3.70-11.00 [facility] Comment on above: Order Comment: Speci men Type: BLOOD SPECIMEN Performed By: #### 5 8410-2 ####[facility]ORATORYCLIA [id number] [address] CONSULT PROGon 06-04-2021 CONSULT PROG Normal [facility] CT BRAIN WO IVCONon 06-04-19 CT BRAIN WO IVCON Normal [facility] CT CHEST W IVCON PEon 2021 CT CHEST W IVCON PE Normal [facility] Magnesium SerPl-mCncon 06-04 Magnesium [Mass/Vol] 2.2 mg/dL Normal 1.7-2.3 [facility] Comment on above: Order Comment: Speci men Type: BLOOD SPECIMEN Performed By: #### 2 777-1, 81773-1, 80334-1 ####[facility]ORATORYCLIA [id number] [address] NT-proBNP SerPl-mCncon 06-04 Natriuretic peptide.B prohormone N-Terminal [Mass/Vol] 229 pg/mL High <125 [facility] Comment on above: Order Comment: Speci men Type: BLOOD SPECIMEN Performed By: #### 3 3762-6, 4091-5 ####[facility] LABORATORYCLIA [id number] [address] STATES OF [facility] Phosphate SerPl-mCncon 06-04 Phosphate [Mass/Vol] 2.0 mg/dL Low 2.7-4.8 [facility] Comment on above: Order Comment: Speci men Type: BLOOD SPECIMEN Performed By: #### 2 777-1, 05032-5, 04514-6 ####[facility] LABORATORYCLIA [id number] [address] OF [facility] Vancomycin random [Mass/Vol] on 06-04-2021 Vancomycin [Mass/Vol] 35.2 ug/mL High 10.0-20.0 [facility] Comment on above: Order Comment: Speci men Type: BLOOD SPECIMEN Result Comment: Refe rence ranges and high/low indicator flags are provided as general guidelines only. The treating physician must determine appropriate target levels/dosing based on the specific clinical situation. Performed By: #### 3 3762-6, 4091-5 ####[facility]ORATORYCLIA [id number] [address] STATES OF [facility] XR ABDOMEN 1V SUPINEon 06-04 XR ABDOMEN 1V SUPINE Normal [facility] ALLIED HEALTHon 06-03-2021 ALLIED HEALTH Normal [facility] ARTERIAL BLOOD GASESon 06-03 Base excess Calc (Bld) [Moles/Vol] 5 mmol/L High 0-2 [facility] Comment on above: Order Comment: Speci men Type: ARTERIAL BLOOD SPECIMEN Performed By: #### A LLBG ####[facility]ORATORYCLIA [id number] [address] Body temperature 99.5 [degF] Normal [facility] Comment on above: Order Comment: Speci men Type: ARTERIAL BLOOD SPECIMEN Performed By: #### A LLBG ####[facility]ATORYCLIA [id number] [address] CALCIUM IONIZED, PH CORRECTED 1.18 mmol/L Normal 1.08-1.30 [facility] Comment on above: Order Comment: Speci men Type: ARTERIAL BLOOD SPECIMEN Performed By: #### A LLBG ####[facility]ATORYCLIA [id number] [address] Calcium.ionized (BldV) [Mass/Vol] 1.16 mmol/L Normal 1.08-1.30 [facility] Comment on above: Order Comment: Speci men Type: ARTERIAL BLOOD SPECIMEN Performed By: #### A LLBG ####[facility]ORATORYCLIA [id number] [address] Carboxyhemoglobin (BldA) [Mass fraction] 1.2 % Normal 0.0-2.0 [facility] Comment on above: Order Comment: Speci men Type: ARTERIAL BLOOD SPECIMEN Result Comment: Carb oxyhemoglobin Reference Range for Smokers: 2.0-8.0% Performed By: #### A LLBG ####[facility]ORATORYCLIA [id number] [address] CO2 (Bld) [Partial pressure] 45 mm Hg Normal 36-46 [facility] Comment on above: Order Comment: Speci men Type: ARTERIAL BLOOD SPECIMEN Performed By: #### A LLBG ####[facility]ATORYCLIA [id number] [address] CO2 [Moles/Vol] 26.9 mmol/L Normal 22-28 [facility] Comment on above: Order Comment: Speci men Type: ARTERIAL BLOOD SPECIMEN Performed By: #### A LLBG ####[facility]ATORYCLIA [id number] [address] CO2 adjusted to patient's actual temperature (Bld) [Partial pressure] 47 mmHg High 36-46 [facility] Comment on above: Order Comment: Speci men Type: ARTERIAL BLOOD SPECIMEN Performed By: #### A LLBG ####[facility]ATORYCLIA [id number] [address] OF [facility] Glucose [Mass/Vol] 141 mg/dL High 60-105 [facility] Comment on above: Order Comment: Speci men Type: ARTERIAL BLOOD SPECIMEN Performed By: #### A LLBG ####[facility]ATORYCLIA [id number] [address] HCO3 (Bld) [Moles/Vol] 30 mmol/L High 22-26 [facility] Comment on above: Order Comment: Speci men Type: ARTERIAL BLOOD SPECIMEN Performed By: #### A LLBG ####[facility]ATORYCLIA [id number] [address] Hematocrit (Bld) [Volume fraction] 35.8 % Low 39.0-51.0 [facility] Comment on above: Order Comment: Speci men Type: ARTERIAL BLOOD SPECIMEN Performed By: #### A LLBG ####[facility]ATORYCLIA [id number] [address] OF [facility] Hemoglobin (Bld) [Mass/Vol] 11.6 g/dL Low 13.0-17.0 [facility] Comment on above: Order Comment: Speci men Type: ARTERIAL BLOOD SPECIMEN Performed By: #### A LLBG ####[facility]ATORYCLIA [id number] [address] Methemoglobin (Bld) [Mass fraction] % Normal 0.0-1.5 [facility] Comment on above: Order Comment: Speci men Type: ARTERIAL BLOOD SPECIMEN Performed By: #### A LLBG ####[facility]ATORYCLIA [id number] [address] O2 THERAPY Ventilator Normal [facility] Comment on above: Order Comment: Speci men Type: ARTERIAL BLOOD SPECIMEN Performed By: #### A LLBG ####[facility]ATORYCLIA [id number] [address] Oxygen (Bld) [Partial pressure] 69 mm Hg Low 85-95 [facility] Comment on above: Order Comment: Speci men Type: ARTERIAL BLOOD SPECIMEN Performed By: #### A LLBG ####[facility]ORYCLIA [id number] [address] Oxygen adjusted to patient's actual temperature (Bld) [Partial pressure] 70.8 mmHg Low 85-95 [facility] Comment on above: Order Comment: Speci men Type: ARTERIAL BLOOD SPECIMEN Performed By: #### A LLBG ####[facility]ATORYCLIA [id number] [address] OXYGEN SATURATION, ARTERIAL 94 % Low 95-98 [facility] Comment on above: Order Comment: Speci men Type: ARTERIAL BLOOD SPECIMEN Performed By: #### A LLBG ####[facility]ATORYCLIA [id number] [address] Oxyhemoglobin (BldA) [Mass fraction] 93 % Low 95-98 [facility] Comment on above: Order Comment: Speci men Type: ARTERIAL BLOOD SPECIMEN Performed By: #### A LLBG ####[facility]ATORYCLIA [id number] [address] STATES OF [facility] pH (Bld) 7.43 [pH] Normal 7.35-7.45 [facility] Comment on above: Order Comment: Speci men Type: ARTERIAL BLOOD SPECIMEN Performed By: #### A LLBG ####[facility]ORYCLIA [id number] [address] pH adjusted to patient's actual temperature (Bld) 7.43 Normal 7.35-7.45 [facility] Comment on above: Order Comment: Speci men Type: ARTERIAL BLOOD SPECIMEN Performed By: #### A LLBG ####[facility]ATORYCLIA [id number] [address] [place] Potassium [Moles/Vol] 3.1 mmol/L Low 3.5-5.0 [facility] Comment on above: Order Comment: Speci men Type: ARTERIAL BLOOD SPECIMEN Performed By: #### A LLBG ####[facility]ORATORYCLIA [id number] [address] STATES [facility] Sodium [Moles/Vol] 145 mmol/L High 136-144 [facility] Comment on above: Order Comment: Speci men Type: ARTERIAL BLOOD SPECIMEN Performed By: #### A LLBG ####[facility]ORATORYCLIA [id number] [address] STATES [place] ASPERGILLUS GALACTOMANNAN SE RUMon 06-03-2021 Galactomannan Ag IA Ql Negative Normal NEGAT [facility] Comment on above: Order Comment: [...] is suspected. Performed By: #### A SGALS ####[facility] LABCLIA [id number] [address] [address] [place] Galactomannan Ag IA Qn <0.50 Normal [facility] Comment on above: Order Comment: Speci men Type: BLOOD SPECIMEN Result Comment: Inde x Values are Interpreted as Follows:Negative specimens <0.50Positive specimens >=0.50 Performed By: #### A SGALS ####[facility] LABCLIA [id number] [place] [id number] [place] Basic metabolic 2000 panelon 06-03-2021 Anion gap [Moles/Vol] 8 mmol/L Low 9-18 [facility] Comment on above: Order Comment: Speci men Type: BLOOD SPECIMEN Performed By: #### 1 9123-9, 2777-1, 01682-4 ####[facility]ORATORYCLIA [id number] [place] [address] [place] Calcium [Mass/Vol] 8.0 mg/dL Low 8.5-10.2 [facility] Comment on above: Order Comment: Speci men Type: BLOOD SPECIMEN Performed By: #### 1 9123-9, 2777-, 35509-4 ####[facility]ORATORYCLIA [id number] [address] OF [facility] Chloride [Moles/Vol] 110 mmol/L High 97-105 [facility] Comment on above: Order Comment: Speci men Type: BLOOD SPECIMEN Performed By: #### 1 9123-9, 2777, 10251-3 ####[facility]ORATORYCLIA [id number] [address] CO2 [Moles/Vol] 28 mmol/L Normal 22-30 [facility] Comment on above: Order Comment: Speci men Type: BLOOD SPECIMEN Performed By: #### 1 9123-9, 2777, 51134-9 ####[facility]ORATORYCLIA [id number] [address] STATES OF [facility] Creatinine [Mass/Vol] 0.75 mg/dL Normal 0.73-1.22 [facility] Comment on above: Order Comment: Speci men Type: BLOOD SPECIMEN Performed By: #### 1 9123-9, 2777, 16143-6 ####[facility]ORATORYCLIA [id number] [address] [place] GFR/1.73 sq M.predicted MDRD (S/P/Bld) [Vol rate/Area] mL/min/{1.73_m2} Normal [facility] Comment on above: Order Comment: Speci [...] actual GFR. Performed By: #### 1 9123-9, 2777, 60609-2 ####[facility]ORATORYCLIA [id number] [place] [address] [place] Glucose [Mass/Vol] 141 mg/dL High 74-99 [facility] Comment on above: Order Comment: Speci men Type: BLOOD SPECIMEN Result Comment: The [place] [employer] (ADA) provides guidance for cutoff [...] Standards of Medical Care in Diabetes 2016, [place] [employer]. Diabetes Care. 2016.39(Suppl 1). Performed By: #### 1 9123-9, 27711-04, ####[facility]ORATORYCLIA [id number] [place] [address] [place] Potassium [Moles/Vol] 3.3 mmol/L Low 3.7-5.1 [facility] Comment on above: Order Comment: Speci men Type: BLOOD SPECIMEN Performed By: #### 1 9123-9, 2777, 87603-2 ####[facility]ORATORYCLIA [id number] [place] [address] [place] Sodium [Moles/Vol] 146 mmol/L High 136-144 [facility] Comment on above: Order Comment: Speci men Type: BLOOD SPECIMEN Performed By: #### 1 9123-9, 2777, 02084-7 ####[facility]ORATORYCLIA [id number] [address] [place] Urea nitrogen [Mass/Vol] 10 mg/dL Normal 9-24 [facility] Comment on above: Order Comment: Speci men Type: BLOOD SPECIMEN Performed By: #### 1 9123-9, 2777-1, 00161-3 ####[facility]ORATORYCLIA [id number] [address] CASE MANAGEMon 06-03-2021 CASE MANAGEM Normal [facility] CBC panel Auto (Bld)on 06-03 Erythrocyte distribution width (RBC) [Ratio] 15.6 % High 11.5-15.0 [facility] Comment on above: Order Comment: Speci men Type: BLOOD SPECIMEN Performed By: #### 5 8410-2 ####[facility]ORATORYCLIA [id number] [address] Hematocrit (Bld) [Volume fraction] 36.9 % Low 39.0-51.0 [facility] Comment on above: Order Comment: Speci men Type: BLOOD SPECIMEN Performed By: #### 5 8410-2 ####[facility]ATORYCLIA [id number] [address] Hemoglobin (Bld) [Mass/Vol] 11.1 g/dL Low 13.0-17.0 [facility] Comment on above: Order Comment: Speci men Type: BLOOD SPECIMEN Performed By: #### 5 8410-2 ####[facility]ORATORYCLIA [id number] [address] MCH (RBC) [Entitic mass] 27.0 pg Normal 26.0-34.0 [facility] Comment on above: Order Comment: Speci men Type: BLOOD SPECIMEN Performed By: #### 5 8410-2 ####[facility]ORATORYCLIA [id number] [address] MCHC (RBC) [Mass/Vol] 30.1 g/dL Low 30.5-36.0 [facility] Comment on above: Order Comment: Speci men Type: BLOOD SPECIMEN Performed By: #### 5 8410-2 ####[facility]ATORYCLIA [id number] [address] MCV (RBC) [Entitic vol] 89.8 fL Normal 80.0-100.0 [facility] Comment on above: Order Comment: Speci men Type: BLOOD SPECIMEN Performed By: #### 5 8410-2 ####[facility]ATORYCLIA [id number] [address] Nucleated RBC (Bld) [#/Vol] 10*3/uL Normal <0.01 [facility] Comment on above: Order Comment: Speci men Type: BLOOD SPECIMEN Performed By: #### 5 8410-2 ####[facility]ORATORYCLIA [id number] [address] Platelet mean volume (Bld) [Entitic vol] 10.5 fL Normal 9.0-12.7 [facility] Comment on above: Order Comment: Speci men Type: BLOOD SPECIMEN Performed By: #### 5 8410-2 ####[facility]ORATORYCLIA [id number] [address] Platelets (Bld) [#/Vol] 196 10*3/uL Normal 150-400 [facility] Comment on above: Order Comment: Speci men Type: BLOOD SPECIMEN Performed By: #### 5 8410-2 ####[facility]ATORYCLIA [id number] [address] RBC (Bld) [#/Vol] 4.11 10*6/uL Low 4.20-6.00 [facility] Comment on above: Order Comment: Speci men Type: BLOOD SPECIMEN Performed By: #### 5 8410-2 ####[facility]ATORYCLIA [id number] [address] WBC (Bld) [#/Vol] 8.18 10*3/uL Normal 3.70-11.00 [facility] Comment on above: Order Comment: Speci men Type: BLOOD SPECIMEN Performed By: #### 5 8410-2 ####[facility]ORATORYCLIA [id number] [address] [place] CONSULTon 06-03-2021 CONSULT Normal [facility] CONSULT PROGon 06-03-2021 CONSULT PROG Normal [facility] Gas and Carbon monoxide pane l (BldV)on 06-03-2021 Base excess Calc (BldV) [Moles/Vol] 1.4 mmol/L Normal 0-2 [facility] Comment on above: Order Comment: Speci men Type: VENOUS BLOOD SPECIMEN Performed By: #### 2 4344-4 ####[facility]ORATORYCLIA [id number] [address] STATES [facility] Body temperature 98.42 [degF] Normal [facility] Comment on above: Order Comment: Speci men Type: VENOUS BLOOD SPECIMEN Performed By: #### 2 4344-4 ####[facility]ORATORYCLIA [id number] [address] [place] CALCIUM IONIZED, PH CORRECTED 1.09 mmol/L Normal 1.08-1.30 [facility] Comment on above: Order Comment: Speci men Type: VENOUS BLOOD SPECIMEN Performed By: #### 2 4344-4 ####[facility]ATORYCLIA [id number] [address] [place] Calcium.ionized (BldV) [Mass/Vol] 1.12 mmol/L Normal 1.08-1.30 [facility] Comment on above: Order Comment: Speci men Type: VENOUS BLOOD SPECIMEN Performed By: #### 2 4344-4 ####[facility]ATORYCLIA [id number] [address] [place] Carboxyhemoglobin (BldV) [Mass fraction] 1.7 % Normal 0.0-2.0 [facility] Comment on above: Order Comment: Speci men Type: VENOUS BLOOD SPECIMEN Result Comment: Carb oxyhemoglobin Reference Range for Smokers: 2.0-8.0% Performed By: #### 2 4344-4 ####[facility]ORATORYCLIA [id number] [place], [place] [id number] [place] [address] CO2 (BldV) [Partial pressure] 50 mm[Hg] Normal 42-55 [facility] Comment on above: Order Comment: Speci men Type: VENOUS BLOOD SPECIMEN Performed By: #### 2 4344-4 ####[facility]ORYCLIA [id number] [address] [place] CO2 [Moles/Vol] 24.9 mmol/L Low 25-29 [facility] Comment on above: Order Comment: Speci men Type: VENOUS BLOOD SPECIMEN Performed By: #### 2 4344-4 ####[facility]ORYCLIA [id number] [address] CO2 adjusted to patient's actual temperature (BldV) [Partial pressure] 50 mmHg Normal 42-55 [facility] Comment on above: Order Comment: Speci men Type: VENOUS BLOOD SPECIMEN Performed By: #### 2 4344-4 ####[facility]ORYCLIA [id number] [address] FIO2 30 % Normal [facility] Comment on above: Order Comment: Speci men Type: VENOUS BLOOD SPECIMEN Performed By: #### 2 4344-4 ####[facility]ORYCLIA [id number] [address] Glucose [Mass/Vol] 191 mg/dL High 60-105 [facility] Comment on above: Order Comment: Speci men Type: VENOUS BLOOD SPECIMEN Performed By: #### 2 4344-4 ####[facility]ORYCLIA [id number] [address] OF [place] HCO3 (Bld) [Moles/Vol] 27.1 mmol/L Normal 24-28 [facility] Comment on above: Order Comment: Speci men Type: VENOUS BLOOD SPECIMEN Performed By: #### 2 4344-4 ####[facility]ORYCLIA [id number] [address] [place] Hematocrit (Bld) [Volume fraction] 36.2 % Low 39.0-51.0 [facility] Comment on above: Order Comment: Speci men Type: VENOUS BLOOD SPECIMEN Performed By: #### 2 4344-4 ####[facility]ORYCLIA [id number] [address] Hemoglobin (Bld) [Mass/Vol] 11.8 g/dL Low 13.0-17.0 [facility] Comment on above: Order Comment: Speci men Type: VENOUS BLOOD SPECIMEN Performed By: #### 2 4344-4 ####[facility]ORYCLIA [id number] [address] INHALED TIDAL VOLUME (ML) 530 Normal [facility] Comment on above: Order Comment: Speci men Type: VENOUS BLOOD SPECIMEN Performed By: #### 2 4344-4 ####[facility]ORYCLIA [id number] [address] Methemoglobin (Bld) [Mass fraction] % Normal 0.0-1.5 [facility] Comment on above: Order Comment: Speci men Type: VENOUS BLOOD SPECIMEN Performed By: #### 2 4344-4 ####[facility]ORYCLIA [id number] [address] O2 THERAPY Ventilator Normal [facility] Comment on above: Order Comment: Speci men Type: VENOUS BLOOD SPECIMEN Performed By: #### 2 4344-4 ####[facility]ORYCLIA [id number] [address] Oxygen (BldV) [Partial pressure] 69 mm[Hg] High 35-45 [facility] Comment on above: Order Comment: Speci men Type: VENOUS BLOOD SPECIMEN Performed By: #### 2 4344-4 ####[facility]ORYCLIA [id number] [address] Oxygen adjusted to patient's actual temperature (BldV) [Partial pressure] 68.8 mmHg High 35-45 [facility] Comment on above: Order Comment: Speci men Type: VENOUS BLOOD SPECIMEN Performed By: #### 2 4344-4 ####[facility]ORYCLIA [id number] [place], [place] [id number] [place] [address] Oxygen saturation in Blood 92.4 % High 60-85 [facility] Comment on above: Order Comment: Speci men Type: VENOUS BLOOD SPECIMEN Performed By: #### 2 4344-4 ####[facility]ORYCLIA [id number] [place], [place] [id number] [place] [address] Oxyhemoglobin (BldV) [Mass fraction] 90 % High 60-85 [facility] Comment on above: Order Comment: Speci men Type: VENOUS BLOOD SPECIMEN Performed By: #### 2 4344-4 ####[facility]ORYCLIA [id number] [address] PEEP/CPAP 8 cmH2O Normal [facility] Comment on above: Order Comment: Speci men Type: VENOUS BLOOD SPECIMEN Performed By: #### 2 4344-4 ####[facility]ORYCLIA [id number] [address] pH (BldV) 7.35 [pH] Normal 7.32-7.42 [facility] Comment on above: Order Comment: Speci men Type: VENOUS BLOOD SPECIMEN Performed By: #### 2 4344-4 ####[facility]ORYCLIA [id number] [address] pH adjusted to patient's actual temperature (BldV) 7.35 Normal 7.32-7.42 [facility] Comment on above: Order Comment: Speci men Type: VENOUS BLOOD SPECIMEN Performed By: #### 2 4344-4 ####[facility]ORYCLIA [id number] [address] Potassium [Moles/Vol] 3.6 mmol/L Normal 3.5-5.0 [facility] Comment on above: Order Comment: Speci men Type: VENOUS BLOOD SPECIMEN Performed By: #### 2 4344-4 ####[facility]ORYCLIA [id number] [address] SET VENTILATOR RESPIRATORY RATE (BPM) 18 BPM Normal [facility] Comment on above: Order Comment: Speci men Type: VENOUS BLOOD SPECIMEN Performed By: #### 2 4344-4 ####[facility]ORYCLIA [id number] [address] Sodium [Moles/Vol] 141 mmol/L Normal 136-144 [facility] Comment on above: Order Comment: Speci men Type: VENOUS BLOOD SPECIMEN Performed By: #### 2 4344-4 ####[facility]ORYCLIA [id number] [address] HIV 1+2 Ab IA Qlon 2 HIV 1 and 2 Ab IA.rapid Nom Normal [facility] Comment on above: Order Comment: Speci men Type: BLOOD SPECIMEN Result Comment: Test not indicated. Performed By: #### 3 1201-7, TOXMG ####[facility]ATORYCLIA [id number] [address] HIV 1+2 Ab+HIV1 p24 Ag IA Ql Non-Reactive Normal Nonreactive [facility] Comment on above: Order Comment: Speci men Type: BLOOD SPECIMEN Result Comment: [place] Rev. Code 3701.243(E): This information has been [...] diagnoses. Performed By: #### 3 1201-7, TOXMG ####[facility]ATORYCLIA [id number] [address] HIVINT Normal [facility] Comment on above: Order Comment: Speci men Type: BLOOD SPECIMEN Result Comment: No e vidence of HIV-1 or HIV-2 infection. Should recent infection be suspected, repeat testing may be considered 2-3 weeks after this draw. Performed By: #### 3 1201-7, TOXMG ####[facility]ATORYCLIA [id number] [address] [place] Magnesium SerPl-mCncon 06-03 Magnesium [Mass/Vol] 1.9 mg/dL Normal 1.7-2.3 [facility] Comment on above: Order Comment: Speci men Type: BLOOD SPECIMEN Performed By: #### 1 9123-9, 2777-1, 78189-6 ####[facility]ATORYCLIA [id number] [place] [id number] [place] NUTRITIONon 06-03-2021 NUTRITION Normal [facility] Phosphate SerPl-mCncon 06-03 Phosphate [Mass/Vol] 1.9 mg/dL Low 2.7-4.8 [facility] Comment on above: Order Comment: Speci men Type: BLOOD SPECIMEN Performed By: #### 1 9123-9, 2777-1, 78449-8 ####[facility]ATORYCLIA [id number] [address] TOXOPLASMOSIS IGM AND IGG AB on 06-03-2021 TOXO IGG QUAL Negative Normal Negative [facility] Comment on above: Order Comment: Speci men Type: BLOOD SPECIMEN Result Comment: No s erological evidence of past exposure to Toxoplasma gondii. Cannot exclude recent infection if the specimen collected within 3-4 weeks after infection.Negative <6.4 IU/mLEquivocal 6.4-9.9 IU/mLPositive >=10.0 IU/mL Performed By: #### 3 1201-7, TOXMG ####[facility]ATORYCLIA [id number] [address] TOXO IGM QUAL Negative Normal Negative [facility] Comment on above: Order Comment: Speci men Type: BLOOD SPECIMEN Result Comment: No s erological evidence of recent exposure to Toxoplasma gondii.Negative <0.9 IndexEquivocal 0.9-0.99 IndexPositive >=1.0 Index Performed By: #### 3 1201-7, TOXMG ####[facility]ORATORYCLIA [id number] [address] [place] US DVT LOWER BILon US DVT LOWER RAINER Normal [facility] XR CHEST 1V FRONTALon 2021 XR CHEST 1V FRONTAL Normal [facility] ARTERIAL BLOOD GASESon 06-02 Base excess Calc (Bld) [Moles/Vol] 2 mmol/L Normal 0-2 [facility] Comment on above: Order Comment: Speci men Type: ARTERIAL BLOOD SPECIMEN Performed By: #### A LLBG ####[facility]ORATORYCLIA [id number] [address] STATES OF [facility] Body temperature 99.32 [degF] Normal [facility] [facility] Comment on above: Order Comment: Speci men Type: ARTERIAL BLOOD SPECIMEN Performed By: #### A LLBG ####[facility] LABORATORYCLIA [id number] [address] STATES OF [facility] CALCIUM IONIZED, PH CORRECTED 1.15 mmol/L Normal 1.08-1.30 [facility] Comment on above: Order Comment: Speci men Type: ARTERIAL BLOOD SPECIMEN Performed By: #### A LLBG ####[facility] LABORATORYCLIA [id number] [address] Calcium.ionized (BldV) [Mass/Vol] 1.13 mmol/L Normal 1.08-1.30 [facility] Comment on above: Order Comment: Speci men Type: ARTERIAL BLOOD SPECIMEN Performed By: #### A LLBG ####[facility]ORATORYCLIA [id number] [address] [place] Carboxyhemoglobin (BldA) [Mass fraction] 1.4 % Normal 0.0-2.0 [facility] Comment on above: Order Comment: Speci men Type: ARTERIAL BLOOD SPECIMEN Result Comment: Carb oxyhemoglobin Reference Range for Smokers: 2.0-8.0% Performed By: #### A LLBG ####[facility]ORATORYCLIA [id number] [address] [place] CO2 (Bld) [Partial pressure] 39 mm Hg Normal 36-46 [facility] Comment on above: Order Comment: Speci men Type: ARTERIAL BLOOD SPECIMEN Performed By: #### A LLBG ####[facility]ORYCLIA [id number] [address] CO2 [Moles/Vol] 23.4 mmol/L Normal 22-28 [facility] Comment on above: Order Comment: Speci men Type: ARTERIAL BLOOD SPECIMEN Performed By: #### A LLBG ####[facility]ORYCLIA [id number] [address] CO2 adjusted to patient's actual temperature (Bld) [Partial pressure] 40 mmHg Normal 36-46 [facility] Comment on above: Order Comment: Speci men Type: ARTERIAL BLOOD SPECIMEN Performed By: #### A LLBG ####[facility]ORYCLIA [id number] [address] Glucose [Mass/Vol] 156 mg/dL High 60-105 [facility] Comment on above: Order Comment: Speci men Type: ARTERIAL BLOOD SPECIMEN Performed By: #### A LLBG ####[facility]ORYCLIA [id number] [address] HCO3 (Bld) [Moles/Vol] 26 mmol/L Normal 22-26 [facility] Comment on above: Order Comment: Speci men Type: ARTERIAL BLOOD SPECIMEN Performed By: #### A LLBG ####[facility]ORYCLIA [id number] [address] [place] Hematocrit (Bld) [Volume fraction] 33.9 % Low 39.0-51.0 [facility] Comment on above: Order Comment: Speci men Type: ARTERIAL BLOOD SPECIMEN Performed By: #### A LLBG ####[facility]ORYCLIA [id number] [address] Hemoglobin (Bld) [Mass/Vol] 11.0 g/dL Low 13.0-17.0 [facility] Comment on above: Order Comment: Speci men Type: ARTERIAL BLOOD SPECIMEN Performed By: #### A LLBG ####[facility]ORYCLIA [id number] [address] Methemoglobin (Bld) [Mass fraction] % Normal 0.0-1.5 [facility] Comment on above: Order Comment: Speci men Type: ARTERIAL BLOOD SPECIMEN Performed By: #### A LLBG ####[facility]ORYCLIA [id number] [address] O2 THERAPY Ventilator Normal [facility] Comment on above: Order Comment: Speci men Type: ARTERIAL BLOOD SPECIMEN Performed By: #### A LLBG ####[facility]ORYCLIA [id number] [address] Oxygen (Bld) [Partial pressure] 70 mm Hg Low 85-95 [facility] Comment on above: Order Comment: Speci men Type: ARTERIAL BLOOD SPECIMEN Performed By: #### A LLBG ####[facility]ORYCLIA [id number] [address] Oxygen adjusted to patient's actual temperature (Bld) [Partial pressure] 72.2 mmHg Low 85-95 [facility] Comment on above: Order Comment: Speci men Type: ARTERIAL BLOOD SPECIMEN Performed By: #### A LLBG ####[facility]ORYCLIA [id number] [address] OXYGEN SATURATION, ARTERIAL 96 % Normal 95-98 [facility] Comment on above: Order Comment: Speci men Type: ARTERIAL BLOOD SPECIMEN Performed By: #### A LLBG ####[facility]ORYCLIA [id number] [address] Oxyhemoglobin (BldA) [Mass fraction] 94 % Low 95-98 [facility] Comment on above: Order Comment: Speci men Type: ARTERIAL BLOOD SPECIMEN Performed By: #### A LLBG ####[facility]ORYCLIA [id number] [address] pH (Bld) 7.43 [pH] Normal 7.35-7.45 [facility] Comment on above: Order Comment: Speci men Type: ARTERIAL BLOOD SPECIMEN Performed By: #### A LLBG ####[facility]ATORYCLIA [id number] [address] pH adjusted to patient's actual temperature (Bld) 7.42 Normal 7.35-7.45 [facility] Comment on above: Order Comment: Speci men Type: ARTERIAL BLOOD SPECIMEN Performed By: #### A LLBG ####[facility]ORYCLIA [id number] [address] Potassium [Moles/Vol] 2.6 mmol/L Low 3.5-5.0 [facility] Comment on above: Order Comment: Speci men Type: ARTERIAL BLOOD SPECIMEN Performed By: #### A LLBG ####[facility]ATORYCLIA [id number] [address] Sodium [Moles/Vol] 142 mmol/L Normal 136-144 [facility] Comment on above: Order Comment: Speci men Type: ARTERIAL BLOOD SPECIMEN Performed By: #### A LLBG ####[facility]ATORYCLIA [id number] [address] Ammonia Plas-sCncon 06-02-19 22 Ammonia (P) [Moles/Vol] 20 umol/L Normal 16-60 [facility] Comment on above: Order Comment: Speci men Type: BLOOD SPECIMEN Performed By: #### 1 6362-6 ####[facility]ORATORYCLIA [id number] [address] Bacteria CSF Culton 06-02-19 22 Bacteria identified Cx Nom (CSF) CULTURE, CSF: No growth 14 days GRAM STAIN: No organisms seen Rare Polymorphonuclear leukocytes Gram stain performed on cytospun specimen. Normal [facility] Comment on above: Performed By: #### 6 06-4 ####[facility]ORATORYCLIA [id number] [address] Basic metabolic 2000 panelon 06-02-2021 Anion gap [Moles/Vol] 10 mmol/L Normal 9-18 [facility] Comment on above: Order Comment: Speci men Type: BLOOD SPECIMEN Performed By: #### 2 4321-2, , 2776-05 ####[facility]ATORYCLIA [id number] [place], [place] [id number] [place] [address] [place] Calcium [Mass/Vol] 8.1 mg/dL Low 8.5-10.2 [facility] Comment on above: Order Comment: Speci men Type: BLOOD SPECIMEN Performed By: #### 2 4321-2, , 2776-05 ####[facility]ATORYCLIA [id number] [address] STATES OF [facility] Chloride [Moles/Vol] 108 mmol/L High 97-105 [facility] Comment on above: Order Comment: Speci men Type: BLOOD SPECIMEN Performed By: #### 2 4321-2, , 2776-05 ####[facility]ORYCLIA [id number] [address] [place] CO2 [Moles/Vol] 24 mmol/L Normal 22-30 [facility] Comment on above: Order Comment: Speci men Type: BLOOD SPECIMEN Performed By: #### 2 4321-2, , 2776-05 ####[facility]ORYCLIA [id number] [address] [place] Creatinine [Mass/Vol] 0.78 mg/dL Normal 0.73-1.22 [facility] Comment on above: Order Comment: Speci men Type: BLOOD SPECIMEN Performed By: #### 2 4321-2, , 2776-05 ####[facility]ATORYCLIA [id number] [address] [place] GFR/1.73 sq M.predicted MDRD (S/P/Bld) [Vol rate/Area] mL/min/{1.73_m2} Normal [facility] Comment on above: Order Comment: Speci [...] Performed By: #### 2 4321-2, , 2776-05 ####[facility] LABORATORYCLIA [id number] [place] [address] [place] Glucose [Mass/Vol] 162 mg/dL High 74-99 [facility] Comment on above: Order Comment: [facility] Type: BLOOD SPECIMEN Result Comment: The [place] [employer] (ADA) provides guidance for cutoff [...] Standards of Medical Care in Diabetes 2016, [place] [employer]. Diabetes Care. 2016.39(Suppl 1). Performed By: #### 2 4321-2, , 2776-05 ####[facility]ORATORYCLIA [id number] [place] [address] [place] Potassium [Moles/Vol] 2.7 mmol/L Low 3.7-5.1 [facility] Comment on above: Order Comment: [facility] Type: BLOOD SPECIMEN Performed By: #### 2 4321-2, , 2776-05 ####[facility]ORATORYCLIA [id number] [address] Sodium [Moles/Vol] 142 mmol/L Normal 136-144 [facility] Comment on above: Order Comment: Speci men Type: BLOOD SPECIMEN Performed By: #### 2 4321-2, 71314-5, 2776-05 ####[facility]ORATORYCLIA [id number] [address] Urea nitrogen [Mass/Vol] 12 mg/dL Normal 9-24 [facility] Comment on above: Order Comment: Speci men Type: BLOOD SPECIMEN Performed By: #### 2 4321-2, , 2776-05 ####[facility]ORATORYCLIA [id number] [address] CBC panel Auto (Bld)on 06-02 Erythrocyte distribution width (RBC) [Ratio] 15.0 % Normal 11.5-15.0 [facility] Comment on above: Order Comment: Speci men Type: BLOOD SPECIMEN Performed By: #### 5 8410-2 ####[facility]ORATORYCLIA [id number] [address] Hematocrit (Bld) [Volume fraction] 34.3 % Low 39.0-51.0 [facility] Comment on above: Order Comment: Speci men Type: BLOOD SPECIMEN Performed By: #### 5 8410-2 ####[facility]ATORYCLIA [id number] [address] Hemoglobin (Bld) [Mass/Vol] 10.3 g/dL Low 13.0-17.0 [facility] Comment on above: Order Comment: Speci men Type: BLOOD SPECIMEN Performed By: #### 5 8410-2 ####[facility]ORATORYCLIA [id number] [address] MCH (RBC) [Entitic mass] 27.0 pg Normal 26.0-34.0 [facility] Comment on above: Order Comment: Speci men Type: BLOOD SPECIMEN Performed By: #### 5 8410-2 ####[facility]ATORYCLIA [id number] [address] MCHC (RBC) [Mass/Vol] 30.0 g/dL Low 30.5-36.0 [facility] Comment on above: Order Comment: Speci men Type: BLOOD SPECIMEN Performed By: #### 5 8410-2 ####[facility]ORATORYCLIA [id number] [address] MCV (RBC) [Entitic vol] 90.0 fL Normal 80.0-100.0 [facility] Comment on above: Order Comment: Speci men Type: BLOOD SPECIMEN Performed By: #### 5 8410-2 ####[facility]ORATORYCLIA [id number] [address] Nucleated RBC (Bld) [#/Vol] 10*3/uL Normal <0.01 [facility] Comment on above: Order Comment: Speci men Type: BLOOD SPECIMEN Performed By: #### 5 8410-2 ####[facility]ORATORYCLIA [id number] [address] Platelet mean volume (Bld) [Entitic vol] 10.2 fL Normal 9.0-12.7 [facility] Comment on above: Order Comment: Speci men Type: BLOOD SPECIMEN Performed By: #### 5 8410-2 ####[facility]ORATORYCLIA [id number] [address] Platelets (Bld) [#/Vol] 194 10*3/uL Normal 150-400 [facility] Comment on above: Order Comment: Speci men Type: BLOOD SPECIMEN Performed By: #### 5 8410-2 ####[facility]ATORYCLIA [id number] [address] RBC (Bld) [#/Vol] 3.81 10*6/uL Low 4.20-6.00 [facility] Comment on above: Order Comment: Speci men Type: BLOOD SPECIMEN Performed By: #### 5 8410-2 ####[facility]ATORYCLIA [id number] [address] [place] WBC (Bld) [#/Vol] 9.22 10*3/uL Normal 3.70-11.00 [facility] Comment on above: Order Comment: Speci men Type: BLOOD SPECIMEN Performed By: #### 5 8410-2 ####[facility]ORATORYCLIA [id number] [address] CONSULT PROGon 06-02-2021 CONSULT PROG Normal [facility] CSF MANUAL DIFFon 06-02-2021 DIF TTL, CSF 25 cells counted Normal [facility] Comment on above: Order Comment: Speci men Type: CEREBROSPINAL FLUID Performed By: #### 3 4563-7, [id number], [id number] ####[facility]ORATORYCLIA [id number] [address] [place] LYMPH%, CSF 4 % Low 50-90 [facility] Comment on above: Order Comment: Speci men Type: CEREBROSPINAL FLUID Performed By: #### 3 4563-7, [id number], [id number] ####[facility]ATORYCLIA [id number] [address] [place] MACRO%, CSF 4 % High <1 [facility] Comment on above: Order Comment: Speci men Type: CEREBROSPINAL FLUID Performed By: #### 3 4563-7, [id number], [id number] ####[facility]ORYCLIA [id number] [address] [place] MONO%, CSF 20 % Normal 10-50 [facility] Comment on above: Order Comment: Speci men Type: CEREBROSPINAL FLUID Performed By: #### 3 4563-7, [id number], [id number] ####[facility]ORYCLIA [id number] [address] [place] NEUT%, CSF 72 % High 0-3 [facility] Comment on above: Order Comment: Speci men Type: CEREBROSPINAL FLUID Performed By: #### 3 4563-7, [id number], [id number] ####[facility]ORATORYCLIA [id number] [address] CSF PATHOLOGIST INTERP (LAB REFLEX ORDER-NO BILL)on 06-02-2021 CSF STAFF REVIEW Negative [facility] Comment on above: Order Comment: Speci men Type: CEREBROSPINAL FLUID Performed By: #### 3 4563-7, [id number], [id number] ####[facility]ORYCLIA [id number] [address] Pathologist name Reviewed by Amador Stevens MD [facility] Comment on above: Order Comment: Speci men Type: CEREBROSPINAL FLUID Performed By: #### 3 4563-7, [id number], [id number] ####[facility]ORYCLIA [id number] [address] Cell count panel (CSF)on Clarity (CSF) Clear Normal Clear [facility] Comment on above: Order Comment: Speci men Type: CEREBROSPINAL FLUID Performed By: #### 3 4563-7, [id number], [id number] ####[facility]ORYCLIA [id number] [address] Clarity (Unsp spec) Not Indicated Normal Clear [facility] Comment on above: Order Comment: Speci men Type: CEREBROSPINAL FLUID Performed By: #### 3 4563-7, [id number], [id number] ####[facility]ORYCLIA [id number] [address] Color (CSF) Colorless Normal Colorless [facility] Comment on above: Order Comment: Speci men Type: CEREBROSPINAL FLUID Performed By: #### 3 4563-7, [id number], [id number] ####[facility]ORYCLIA [id number] [address] Color (Spun CSF) Not Indicated Normal Colorless [facility] Comment on above: Order Comment: Speci men Type: CEREBROSPINAL FLUID Performed By: #### 3 4563-7, [id number], [id number] ####[facility]ORATORYCLIA [id number] [address] CSF TUBE NUMBER [employer] Normal [facility] Comment on above: Order Comment: Speci men Type: CEREBROSPINAL FLUID Performed By: #### 3 4563-7, [id number], [id number] ####[facility]ATORYCLIA [id number] [address] RBC Manual cnt (CSF) [#/Vol] 117 cells/uL High 0-5 [facility] Comment on above: Order Comment: Speci men Type: CEREBROSPINAL FLUID Performed By: #### 3 4563-7, [id number], [id number] ####[facility]ATORYCLIA [id number] [address] WBC Manual cnt (CSF) [#/Vol] 1 cells/uL Normal 0-5 [facility] Comment on above: Order Comment: Speci men Type: CEREBROSPINAL FLUID Performed By: #### 3 4563-7, [id number], [id number] ####[facility]ATORYCLIA [id number] [address] Glucose CSF-mCncon 2 Glucose (CSF) [Mass/Vol] 82 mg/dL High 40-70 [facility] Comment on above: Order Comment: Speci men Type: CEREBROSPINAL FLUID Result Comment: Lumb ar CSF glucose values of healthy patients are approximately 60% of the plasma values and must always be compared with a concurrently measured plasma value for adequate clinical interpretation.References: 1. Glucose HK (GLUC3) [package insert V 12.0 [place]e]. [employer], [place], [place]. September 2015. 2. Teresa H., He, H. (2015). Chapter 7: Glucose and Lactate. Marianela Rothman.(eds.), Cerebrospinal Fluid in Clinical Neurology. [place]: [employer]. Performed By: #### 2 342-4 ####[facility]ORATORYCLIA [id number] [address] HEPATIC FUNCTION PNLon 06-02 Albumin [Mass/Vol] 3.2 g/dL Low 3.9-4.9 [facility] Comment on above: Order Comment: Speci men Type: BLOOD SPECIMEN Performed By: #### [place], [address]-6 ####[facility]ORYCLIA [id number] [address] ALP [Catalytic activity/Vol] 67 U/L Normal 38-113 [facility] Comment on above: Order Comment: Speci men Type: BLOOD SPECIMEN Performed By: #### [place], [address]-0 ####[facility]ORYCLIA [id number] [address] ALT With P-5'-P [Catalytic activity/Vol] 16 U/L Normal 10-54 [facility] Comment on above: Order Comment: Speci men Type: BLOOD SPECIMEN Performed By: #### [place], [address]-8 ####[facility]ORYCLIA [id number] [address] AST With P-5'-P [Catalytic activity/Vol] 25 U/L Normal 14-40 [facility] Comment on above: Order Comment: Speci men Type: BLOOD SPECIMEN Performed By: #### [place], [address]-5 ####[facility]ORYCLIA [id number] [address] Bilirubin [Mass/Vol] 0.2 mg/dL Normal 0.2-1.3 [facility] Comment on above: Order Comment: Speci men Type: BLOOD SPECIMEN Performed By: #### H FP, ####[facility]ORYCLIA [id number] [address] Bilirubin.conjugated [Mass/Vol] mg/dL Normal <0.2 [facility] Comment on above: Order Comment: Speci men Type: BLOOD SPECIMEN Performed By: #### [place], [address]-7 ####[facility]ORYCLIA [id number] [address] Protein [Mass/Vol] 5.8 g/dL Low 6.3-8.0 [facility] Comment on above: Order Comment: Speci men Type: BLOOD SPECIMEN Performed By: #### [place] KATHIE, 08705-0 ####[facility]ATORYCLIA [id number] [address] [place] MRI BRAIN WO/W IVCONon 06-02 MRI BRAIN WO/W IVCON Normal [facility] Magnesium SerPl-mCncon 06-02 Magnesium [Mass/Vol] 2.0 mg/dL Normal 1.7-2.3 [facility] Comment on above: Order Comment: Speci men Type: BLOOD SPECIMEN Performed By: #### 2 4321-2, , 2776-05 ####[facility]ATORYCLIA [id number] [address] [facility] Natriuretic peptide.B prohormone N-Terminal [Mass/Vol] 296 pg/mL High <125 [facility] Comment on above: Order Comment: Speci men Type: BLOOD SPECIMEN Performed By: #### [place] KATHIE, 59224-9 ####[facility]ATORYCLIA [id number] [address] [place] POTASSIUM BLDon 06-02-2021 Potassium [Moles/Vol] 3.2 mmol/L Low 3.7-5.1 [facility] Comment on above: Order Comment: Speci men Type: BLOOD SPECIMEN Performed By: #### K 1 ####[facility]ATORYCLIA [id number] [address] [place] Phosphate SerPl-mCncon 06-02 Phosphate [Mass/Vol] 2.1 mg/dL Low 2.7-4.8 [facility] Comment on above: Order Comment: Speci men Type: BLOOD SPECIMEN Performed By: #### 2 4321-2, , 2776- ####[facility]ATORYCLIA [id number] [address] Vancomycin random [Mass/Vol] on 06-02-2021 Vancomycin [Mass/Vol] 18.8 ug/mL Normal 10.0-20.0 [facility] Comment on above: Order Comment: Speci men Type: BLOOD SPECIMEN Result Comment: Refe rence ranges and high/low indicator flags are provided as general guidelines only. The treating physician must determine appropriate target levels/dosing based on the specific clinical situation. Performed By: #### 4 091-5 ####[facility]ORATORYCLIA [id number] [address] [place] ALLIED HEALTHon 06-01-2021 ALLIED HEALTH Normal [facility] ALLIED HEALTH Normal [facility] ALLIED HEALTH Normal [facility] ARTERIAL BLOOD GASESon 06-01 Base excess Calc (Bld) [Moles/Vol] 1 mmol/L Normal 0-2 [facility] Comment on above: Order Comment: Speci men Type: ARTERIAL BLOOD SPECIMEN Performed By: #### A LLBG ####[facility]ORATORYCLIA [id number] [address] Body temperature 97.52 [degF] Normal [facility] Comment on above: Order Comment: Speci men Type: ARTERIAL BLOOD SPECIMEN Performed By: #### A LLBG ####[facility]ORATORYCLIA [id number] [address] [facility] CALCIUM IONIZED, PH CORRECTED 1.13 mmol/L Normal 1.08-1.30 [facility] Comment on above: Order Comment: Speci men Type: ARTERIAL BLOOD SPECIMEN Performed By: #### A LLBG ####[facility]ORATORYCLIA [id number] [address] [place] Calcium.ionized (BldV) [Mass/Vol] 1.12 mmol/L Normal 1.08-1.30 [facility] Comment on above: Order Comment: Speci men Type: ARTERIAL BLOOD SPECIMEN Performed By: #### A LLBG ####[facility]ORATORYCLIA [id number] [address] STATES [facility] Carboxyhemoglobin (BldA) [Mass fraction] 1.6 % Normal 0.0-2.0 [facility] Comment on above: Order Comment: Speci men Type: ARTERIAL BLOOD SPECIMEN Result Comment: Carb oxyhemoglobin Reference Range for Smokers: 2.0-8.0% Performed By: #### A LLBG ####[facility]ORYCLIA [id number] [address] CO2 (Bld) [Partial pressure] 41 mm Hg Normal 36-46 [facility] Comment on above: Order Comment: Speci men Type: ARTERIAL BLOOD SPECIMEN Performed By: #### A LLBG ####[facility]ORYCLIA [id number] [address] CO2 [Moles/Vol] 23.0 mmol/L Normal 22-28 [facility] Comment on above: Order Comment: Speci men Type: ARTERIAL BLOOD SPECIMEN Performed By: #### A LLBG ####[facility]ORYCLIA [id number] [address] CO2 adjusted to patient's actual temperature (Bld) [Partial pressure] 40 mmHg Normal 36-46 [facility] Comment on above: Order Comment: Speci men Type: ARTERIAL BLOOD SPECIMEN Performed By: #### A LLBG ####[facility]ORYCLIA [id number] [address] [place] FIO2 40 % Normal [facility] Comment on above: Order Comment: Speci men Type: ARTERIAL BLOOD SPECIMEN Performed By: #### A LLBG ####[facility]ORYCLIA [id number] [address] [place] Glucose [Mass/Vol] 127 mg/dL High 60-105 [facility] Comment on above: Order Comment: Speci men Type: ARTERIAL BLOOD SPECIMEN Performed By: #### A LLBG ####[facility]ORYCLIA [id number] [address] [place] HCO3 (Bld) [Moles/Vol] 25 mmol/L Normal 22-26 [facility] Comment on above: Order Comment: Speci men Type: ARTERIAL BLOOD SPECIMEN Performed By: #### A LLBG ####[facility]ORYCLIA [id number] [address] Hematocrit (Bld) [Volume fraction] 33.7 % Low 39.0-51.0 [facility] Comment on above: Order Comment: Speci men Type: ARTERIAL BLOOD SPECIMEN Performed By: #### A LLBG ####[facility]ORYCLIA [id number] [address] Hemoglobin (Bld) [Mass/Vol] 10.9 g/dL Low 13.0-17.0 [facility] Comment on above: Order Comment: Speci men Type: ARTERIAL BLOOD SPECIMEN Performed By: #### A LLBG ####[facility] LABORATORYCLIA [id number] [address] INHALED TIDAL VOLUME (ML) 500 Normal [facility] Comment on above: Order Comment: Speci men Type: ARTERIAL BLOOD SPECIMEN Performed By: #### A LLBG ####[facility]ORATORYCLIA [id number] [address] INVASIVE VENTILATOR MODE PRVC=Pressure Regulated Volume Control [facility] Comment on above: Order Comment: Speci men Type: ARTERIAL BLOOD SPECIMEN Performed By: #### A LLBG ####[facility]ORATORYCLIA [id number] [address] Methemoglobin (Bld) [Mass fraction] % Normal 0.0-1.5 [facility] Comment on above: Order Comment: Speci men Type: ARTERIAL BLOOD SPECIMEN Performed By: #### A LLBG ####[facility]ORATORYCLIA [id number] [address] O2 THERAPY Ventilator Normal [facility] Comment on above: Order Comment: Speci men Type: ARTERIAL BLOOD SPECIMEN Performed By: #### A LLBG ####[facility]ORATORYCLIA [id number] [address] Oxygen (Bld) [Partial pressure] 64 mm Hg Low 85-95 [facility] Comment on above: Order Comment: Speci men Type: ARTERIAL BLOOD SPECIMEN Performed By: #### A LLBG ####[facility]ORATORYCLIA [id number] [address] Oxygen adjusted to patient's actual temperature (Bld) [Partial pressure] 61.8 mmHg Low 85-95 [facility] Comment on above: Order Comment: Speci men Type: ARTERIAL BLOOD SPECIMEN Performed By: #### A LLBG ####[facility]ORATORYCLIA [id number] [address] OXYGEN SATURATION, ARTERIAL 94 % Low 95-98 [facility] Comment on above: Order Comment: Speci men Type: ARTERIAL BLOOD SPECIMEN Performed By: #### A LLBG ####[facility]ORATORYCLIA [id number] [address] Oxyhemoglobin (BldA) [Mass fraction] 92 % Low 95-98 [facility] Comment on above: Order Comment: Speci men Type: ARTERIAL BLOOD SPECIMEN Performed By: #### A LLBG ####[facility]ATORYCLIA [id number] [address] PEEP/CPAP 5 cmH2O Normal [facility] Comment on above: Order Comment: Speci men Type: ARTERIAL BLOOD SPECIMEN Performed By: #### A LLBG ####[facility]ATORYCLIA [id number] [address] pH (Bld) 7.40 [pH] Normal 7.35-7.45 [facility] Comment on above: Order Comment: Speci men Type: ARTERIAL BLOOD SPECIMEN Performed By: #### A LLBG ####[facility]ATORYCLIA [id number] [address] pH adjusted to patient's actual temperature (Bld) 7.41 Normal 7.35-7.45 [facility] Comment on above: Order Comment: Speci men Type: ARTERIAL BLOOD SPECIMEN Performed By: #### A LLBG ####[facility]ORATORYCLIA [id number] [address] Potassium [Moles/Vol] 3.1 mmol/L Low 3.5-5.0 [facility] Comment on above: Order Comment: Speci men Type: ARTERIAL BLOOD SPECIMEN Performed By: #### A LLBG ####[facility]ORATORYCLIA [id number] [address] SET VENTILATOR RESPIRATORY RATE (BPM) 18 BPM Normal [facility] Comment on above: Order Comment: Speci men Type: ARTERIAL BLOOD SPECIMEN Performed By: #### A LLBG ####[facility]ATORYCLIA [id number] [address] Sodium [Moles/Vol] 141 mmol/L Normal 136-144 [facility] Comment on above: Order Comment: Speci men Type: ARTERIAL BLOOD SPECIMEN Performed By: #### A LLBG ####[facility]ORATORYCLIA [id number] [address] BASE DEFICIT, ARTERIAL -1.0 mmol/L Normal -2-0 [facility] Comment on above: Order Comment: Speci men Type: ARTERIAL BLOOD SPECIMEN Performed By: #### A LLBG ####[facility]ORATORYCLIA [id number] [address] Body temperature 98.24 [degF] Normal [facility] Comment on above: Order Comment: Speci men Type: ARTERIAL BLOOD SPECIMEN Performed By: #### A LLBG ####[facility]ORATORYCLIA [id number] [address] CALCIUM IONIZED, PH CORRECTED 1.08 mmol/L Normal 1.08-1.30 [facility] Comment on above: Order Comment: Speci men Type: ARTERIAL BLOOD SPECIMEN Performed By: #### A LLBG ####[facility]ORATORYCLIA [id number] [address] Calcium.ionized (BldV) [Mass/Vol] 1.15 mmol/L Normal 1.08-1.30 [facility] Comment on above: Order Comment: Speci men Type: ARTERIAL BLOOD SPECIMEN Performed By: #### A LLBG ####[facility]ORATORYCLIA [id number] [address] [facility] Carboxyhemoglobin (BldA) [Mass fraction] 1.4 % Normal 0.0-2.0 [facility] Comment on above: Order Comment: Speci men Type: ARTERIAL BLOOD SPECIMEN Result Comment: Carb oxyhemoglobin Reference Range for Smokers: 2.0-8.0% Performed By: #### A LLBG ####[facility]ORATORYCLIA [id number] [address] CO2 (Bld) [Partial pressure] 59 mm Hg High 36-46 [facility] Comment on above: Order Comment: Speci men Type: ARTERIAL BLOOD SPECIMEN Performed By: #### A LLBG ####[facility]ORATORYCLIA [id number] [address] CO2 [Moles/Vol] 24.5 mmol/L Normal 22-28 [facility] Comment on above: Order Comment: Speci men Type: ARTERIAL BLOOD SPECIMEN Performed By: #### A LLBG ####[facility] LABORATORYCLIA [id number] [address] CO2 adjusted to patient's actual temperature (Bld) [Partial pressure] 58 mmHg High 36-46 [facility] Comment on above: Order Comment: Speci men Type: ARTERIAL BLOOD SPECIMEN Performed By: #### A LLBG ####[facility]ORATORYCLIA [id number] [address] [place] FIO2 40 % Normal [facility] Comment on above: Order Comment: Speci men Type: ARTERIAL BLOOD SPECIMEN Performed By: #### A LLBG ####[facility]ORATORYCLIA [id number] [address] [place] Glucose [Mass/Vol] 128 mg/dL High 60-105 [facility] Comment on above: Order Comment: Speci men Type: ARTERIAL BLOOD SPECIMEN Performed By: #### A LLBG ####[facility] LABORATORYCLIA [id number] [address] HCO3 (Bld) [Moles/Vol] 26 mmol/L Normal 22-26 [facility] Comment on above: Order Comment: Speci men Type: ARTERIAL BLOOD SPECIMEN Performed By: #### A LLBG ####[facility] LABORATORYCLIA [id number] [address] Hematocrit (Bld) [Volume fraction] 35.6 % Low 39.0-51.0 [facility] Comment on above: Order Comment: Speci men Type: ARTERIAL BLOOD SPECIMEN Performed By: #### A LLBG ####[facility] LABORATORYCLIA [id number] [address] [facility] Hemoglobin (Bld) [Mass/Vol] 11.5 g/dL Low 13.0-17.0 [facility] Comment on above: Order Comment: Speci men Type: ARTERIAL BLOOD SPECIMEN Performed By: #### A LLBG ####[facility] LABORATORYCLIA [id number] [address] INHALED TIDAL VOLUME (ML) 500 Normal [facility] Comment on above: Order Comment: Speci men Type: ARTERIAL BLOOD SPECIMEN Performed By: #### A LLBG ####[facility] LABORATORYCLIA [id number] [address] INVASIVE VENTILATOR MODE PRVC=Pressure Regulated Volume Control Normal [facility] Comment on above: Order Comment: Speci men Type: ARTERIAL BLOOD SPECIMEN Performed By: #### A LLBG ####[facility] LABORATORYCLIA [id number] [address] Methemoglobin (Bld) [Mass fraction] % Normal 0.0-1.5 [facility] Comment on above: Order Comment: Speci men Type: ARTERIAL BLOOD SPECIMEN Performed By: #### A LLBG ####[facility]ORATORYCLIA [id number] [address] OF [place] O2 THERAPY Ventilator Normal [facility] Comment on above: Order Comment: Speci men Type: ARTERIAL BLOOD SPECIMEN Performed By: #### A LLBG ####[facility]ORATORYCLIA [id number] [address] [place] Oxygen (Bld) [Partial pressure] 88 mm Hg Normal 85-95 [facility] Comment on above: Order Comment: Speci men Type: ARTERIAL BLOOD SPECIMEN Performed By: #### A LLBG ####[facility]ORATORYCLIA [id number] [address] Oxygen adjusted to patient's actual temperature (Bld) [Partial pressure] 86.5 mmHg Normal 85-95 [facility] Comment on above: Order Comment: Speci men Type: ARTERIAL BLOOD SPECIMEN Performed By: #### A LLBG ####[facility] LABORATORYCLIA [id number] [address] [place] OXYGEN SATURATION, ARTERIAL 95 % Normal 95-98 [facility] Comment on above: Order Comment: Speci men Type: ARTERIAL BLOOD SPECIMEN Performed By: #### A LLBG ####[facility]ORATORYCLIA [id number] [address] OF [place] Oxyhemoglobin (BldA) [Mass fraction] 93 % Low 95-98 [facility] Comment on above: Order Comment: Speci men Type: ARTERIAL BLOOD SPECIMEN Performed By: #### A LLBG ####[facility]ATORYCLIA [id number] [address] OF [place] PEEP/CPAP 5 cmH2O Normal [facility] Comment on above: Order Comment: Speci men Type: ARTERIAL BLOOD SPECIMEN Performed By: #### A LLBG ####[facility]ORATORYCLIA [id number] [address] OF [place] pH (Bld) 7.27 [pH] Low 7.35-7.45 [facility] Comment on above: Order Comment: Speci men Type: ARTERIAL BLOOD SPECIMEN Performed By: #### A LLBG ####[facility] LABORATORYCLIA [id number] [address] pH adjusted to patient's actual temperature (Bld) 7.28 Low 7.35-7.45 [facility] Comment on above: Order Comment: Speci men Type: ARTERIAL BLOOD SPECIMEN Performed By: #### A LLBG ####[facility] LABORATORYCLIA [id number] [address] Potassium [Moles/Vol] 3.3 mmol/L Low 3.5-5.0 [facility] Comment on above: Order Comment: Speci men Type: ARTERIAL BLOOD SPECIMEN Performed By: #### A LLBG ####[facility] LABORATORYCLIA [id number] [address] SET VENTILATOR RESPIRATORY RATE (BPM) 14 BPM Normal [facility] Comment on above: Order Comment: Speci men Type: ARTERIAL BLOOD SPECIMEN Performed By: #### A LLBG ####[facility] LABORATORYCLIA [id number] [address] Sodium [Moles/Vol] 141 mmol/L Normal 136-144 [facility] Comment on above: Order Comment: Speci men Type: ARTERIAL BLOOD SPECIMEN Performed By: #### A LLBG ####[facility] LABORATORYCLIA [id number] [address] Bacteria CSF Culton 06-01-19 Bacteria identified Cx Nom (CSF) CULTURE, CSF: No growth 14 days GRAM STAIN: No organisms seen Rare Polymorphonuclear leukocytes Moderate Red Blood Cells Gram stain performed on cytospun specimen. Normal [facility] Comment on above: Performed By: #### 6 06-4 ####[facility] LABORATORYCLIA [id number] [address] Bacteria Spec Resp Culton Bacteria identified Respiratory culture Nom (Unsp spec) CULTURE, RESPIRATORY: No growth 2 days GRAM STAIN: No organisms seen No Polymorphonuclear Leukocytes Normal [facility] Comment on above: Performed By: #### 3 2355-0 ####[facility] LABORATORYCLIA [id number] [place], [place] [address] [place] [address] [place] Basic metabolic 2000 panelon 06-01-2021 Anion gap [Moles/Vol] 8 mmol/L Low 9-18 [facility] Comment on above: Order Comment: Speci men Type: BLOOD SPECIMEN Performed By: #### 2 4321-2, , 2776-05 ####[facility] LABORATORYCLIA [id number] [address] STATES OF [facility] Calcium [Mass/Vol] 7.8 mg/dL Low 8.5-10.2 [facility] Comment on above: Order Comment: Speci men Type: BLOOD SPECIMEN Performed By: #### 2 4321-2, , 2776-05 ####[facility]ORATORYCLIA [id number] [address] STATES OF [facility] Chloride [Moles/Vol] 109 mmol/L High 97-105 [facility] Comment on above: Order Comment: Speci men Type: BLOOD SPECIMEN Performed By: #### 2 4321-2, , 2776-05 ####[facility]ATORYCLIA [id number] [address] STATES OF [facility] CO2 [Moles/Vol] 26 mmol/L Normal 22-30 [facility] Comment on above: Order Comment: Speci men Type: BLOOD SPECIMEN Performed By: #### 2 4321-2, , 2776-05 ####[facility] LABORATORYCLIA [id number] [place], [place] [address] [place] [address] [place] Creatinine [Mass/Vol] 0.82 mg/dL Normal 0.73-1.22 [facility] Comment on above: Order Comment: Speci men Type: BLOOD SPECIMEN Performed By: #### 2 4321-2, , 2776-05 ####[facility] LABORATORYCLIA [id number] [place] [address] [place] GFR/1.73 sq M.predicted MDRD (S/P/Bld) [Vol rate/Area] mL/min/{1.73_m2} Normal [facility] Comment on above: Order Comment: Speci [...] actual GFR. Performed By: #### 2 4321-2, 58027-0, 2776- ####[facility] LABORATORYCLIA [id number] [place] [address] [place] Glucose [Mass/Vol] 105 mg/dL High 74-99 [facility] Comment on above: Order Comment: Speci men Type: BLOOD SPECIMEN Result Comment: The [place] [employer] (ADA) provides guidance for cutoff [...] Standards of Medical Care in Diabetes 2016, [place] [employer]. Diabetes Care. 2016.39(Suppl 1). Performed By: #### 2 4321-2, 80489-5, 2776-05 ####[facility] LABORATORYCLIA [id number] [place] [address] [place] Potassium [Moles/Vol] 3.8 mmol/L Normal 3.7-5.1 [facility] Comment on above: Order Comment: Speci men Type: BLOOD SPECIMEN Performed By: #### 2 4321-2, , 2776-05 ####[facility]ATORYCLIA [id number] [address] Sodium [Moles/Vol] 143 mmol/L Normal 136-144 [facility] Comment on above: Order Comment: Speci men Type: BLOOD SPECIMEN Performed By: #### 2 4321-2, , 2776-05 ####[facility]ORATORYCLIA [id number] [address] Urea nitrogen [Mass/Vol] 15 mg/dL Normal 9-24 [facility] Comment on above: Order Comment: Speci men Type: BLOOD SPECIMEN Performed By: #### 2 4321-2, , 2776-05 ####[facility]ORATORYCLIA [id number] [address] CBC panel Auto (Bld)on 06-01 Erythrocyte distribution width (RBC) [Ratio] 15.4 % High 11.5-15.0 [facility] Comment on above: Order Comment: Speci men Type: BLOOD SPECIMEN Performed By: #### 5 8410-2 ####[facility] LABORATORYCLIA [id number] [address] Hematocrit (Bld) [Volume fraction] 38.4 % Low 39.0-51.0 [facility] Comment on above: Order Comment: Speci men Type: BLOOD SPECIMEN Performed By: #### 5 8410-2 ####[facility] LABORATORYCLIA [id number] [address] Hemoglobin (Bld) [Mass/Vol] 11.1 g/dL Low 13.0-17.0 [facility] Comment on above: Order Comment: Speci men Type: BLOOD SPECIMEN Performed By: #### 5 8410-2 ####[facility] LABORATORYCLIA [id number] [address] MCH (RBC) [Entitic mass] 26.9 pg Normal 26.0-34.0 [facility] Comment on above: Order Comment: Speci men Type: BLOOD SPECIMEN Performed By: #### 5 8410-2 ####[facility] LABORATORYCLIA [id number] [address] MCHC (RBC) [Mass/Vol] 28.9 g/dL Low 30.5-36.0 [facility] Comment on above: Order Comment: Speci men Type: BLOOD SPECIMEN Performed By: #### 5 8410-2 ####[facility] LABORATORYCLIA [id number] [address] MCV (RBC) [Entitic vol] 93.2 fL Normal 80.0-100.0 [facility] Comment on above: Order Comment: Speci men Type: BLOOD SPECIMEN Performed By: #### 5 8410-2 ####[facility] LABORATORYCLIA [id number] [address] Nucleated RBC (Bld) [#/Vol] 10*3/uL Normal <0.01 [facility] Comment on above: Order Comment: Speci men Type: BLOOD SPECIMEN Performed By: #### 5 8410-2 ####[facility] LABORATORYCLIA [id number] [address] Platelet mean volume (Bld) [Entitic vol] 10.2 fL Normal 9.0-12.7 [facility] Comment on above: Order Comment: Speci men Type: BLOOD SPECIMEN Performed By: #### 5 8410-2 ####[facility] LABORATORYCLIA [id number] [address] Platelets (Bld) [#/Vol] 231 10*3/uL Normal 150-400 [facility] Comment on above: Order Comment: Speci men Type: BLOOD SPECIMEN Performed By: #### 5 8410-2 ####[facility] LABORATORYCLIA [id number] [address] RBC (Bld) [#/Vol] 4.12 10*6/uL Low 4.20-6.00 [facility] Comment on above: Order Comment: Speci men Type: BLOOD SPECIMEN Performed By: #### 5 8410-2 ####[facility] LABORATORYCLIA [id number] [address] WBC (Bld) [#/Vol] 10.99 10*3/uL Normal 3.70-11.00 [facility] Comment on above: Order Comment: Speci men Type: BLOOD SPECIMEN Performed By: #### 5 8410-2 ####[facility]ATORYCLIA [id number] [address] CONSULT PROGon 06-01-2021 CONSULT PROG Normal [facility] CSF MANUAL DIFFon 06-01-2021 DIF TTL, CSF 100 cells counted Normal [facility] Comment on above: Order Comment: Speci men Type: CEREBROSPINAL FLUID Performed By: #### 3 4563-7, [id number] ####[facility]ATORYCLIA [id number] [address] OF [place] LYMPH%, CSF 11 % Low 50-90 [facility] Comment on above: Order Comment: Speci men Type: CEREBROSPINAL FLUID Performed By: #### 3 4563-7, [id number] ####[facility]ORATORYCLIA [id number] [address] [place] MONO%, CSF 10 % Normal 10-50 [facility] Comment on above: Order Comment: Speci men Type: CEREBROSPINAL FLUID Performed By: #### 3 4563-7, [id number] ####[facility]ATORYCLIA [id number] [address] [place] NEUT%, CSF 79 % High 0-3 [facility] Comment on above: Order Comment: Speci men Type: CEREBROSPINAL FLUID Performed By: #### 3 4563-7, [id number] ####[facility]ATORYCLIA [id number] [address] OF [place] CT BRAIN WO IVCONon 06-01-[address] BRAIN WO IVCON Normal [facility] Cell count panel (CSF)on Clarity (CSF) Clear Normal Clear [facility] Comment on above: Order Comment: Speci men Type: CEREBROSPINAL FLUID Performed By: #### 3 4563-7, [id number] ####[facility]ATORYCLIA [id number] [address] Clarity (Unsp spec) Not Indicated Normal Clear [facility] Comment on above: Order Comment: Speci men Type: CEREBROSPINAL FLUID Performed By: #### 3 4563-7, [id number] ####[facility]ATORYCLIA [id number] [address] Color (CSF) Colorless Normal Colorless [facility] Comment on above: Order Comment: Speci men Type: CEREBROSPINAL FLUID Performed By: #### 3 4563-7, [id number] ####[facility]ATORYCLIA [id number] [address] Color (Spun CSF) Not Indicated Normal Colorless [facility] Comment on above: Order Comment: Speci men Type: CEREBROSPINAL FLUID Performed By: #### 3 4563-7, [id number] ####[facility]ATORYCLIA [id number] [address] CSF TUBE NUMBER Sterile Container Normal [facility] Comment on above: Order Comment: Speci men Type: CEREBROSPINAL FLUID Performed By: #### 3 4563-7, [id number] ####[facility]ATORYCLIA [id number] [address] RBC Manual cnt (CSF) [#/Vol] 171 cells/uL High 0-5 [facility] Comment on above: Order Comment: Speci men Type: CEREBROSPINAL FLUID Performed By: #### 3 4563-7, [id number] ####[facility]ATORYCLIA [id number] [address] [facility] WBC Manual cnt (CSF) [#/Vol] 5 cells/uL Normal 0-5 [facility] Comment on above: Order Comment: Speci men Type: CEREBROSPINAL FLUID Performed By: #### 3 4563-7, [id number] ####[facility] LABORATORYCLIA [id number] [address] [place] FUNGAL CULTUREon 06-01-2021 FUNGAL CULTURE CULTURE, FUNGAL: No Fungus isolated after 28 days Normal [facility] Comment on above: Performed By: #### F CUL ####[facility] LABORATORYCLIA [id number] [place] [address] [place] Glucose CSF-mCncon 2 Glucose (CSF) [Mass/Vol] 78 mg/dL High 40-70 [facility] Comment on above: Order Comment: Speci men Type: CEREBROSPINAL FLUID Result Comment: Lumb ar CSF glucose values of healthy patients are approximately 60% of the plasma values and must always be compared with a concurrently measured plasma value for adequate clinical interpretation.References: 1. Glucose HK (GLUC3) [package insert V 12.0 [place]e]. [employer], [place], [place]. September 2015. 2. Michelle Moore, Loki HGarfield (2015). Chapter 7: Glucose and Lactate. F. Irina rose al.(eds.), Cerebrospinal Fluid in Clinical Neurology. [place]: [employer]. Performed By: #### 2 342-4, 2880-3 ####[facility] LABORATORYCLIA [id number] [address] [place] HERPES SIMPLEX CSFon 022 HERPES SIMPLEX CSF HSV PCR SPEC SOURCE: Cerebrospinal Fluid HSV-1: Negative for Herpes Simplex Virus Type 1 by PCR HSV-2: Negative for Herpes Simplex Virus Type 2 by PCR Normal [facility] Comment on above: Performed By: #### H [facility] ####[facility] LABCLIA [id number] [id number] [address] [place] Lactate (Bld) [Moles/Vol]on 06-01-2021 Lactate [Moles/Vol] 0.5 mmol/L Normal 0.5-2.2 [facility] Comment on above: Order Comment: Speci men Type: BLOOD SPECIMEN Performed By: #### 3 2693-4 ####[facility] LABORATORYCLIA [id number] [place] [address] [facility] [place] MENINGITIS ENCEPHALITIS BIOF IREon 06-01-2021 MENINGITIS ENCEPHALITIS BIOFIRE Negative Normal [facility] Comment on above: Order Comment: Speci men Type: CEREBROSPINAL FLUID Performed By: #### M GEBF ####[facility] [id number], [place] [address] Magnesium SerPl-mCncon 06-01 Magnesium [Mass/Vol] 2.2 mg/dL Normal 1.7-2.3 [facility] Comment on above: Order Comment: Speci men Type: BLOOD SPECIMEN Performed By: #### 2 4321-2, 25111-5, 2777-1 ####[facility] LABORATORYCLIA [id number] [address] [place] Microorganism Spec Culton Microorganism identified Cx Nom (Unsp spec) CULTURE, AFB: No Acid Fast Bacilli isolated after 42 days AFB STAIN: No acid fast bacilli seen by flurochrome stain Normal [facility] Comment on above: Performed By: #### 1 1475-1 ####[facility] LABORATORYCLIA [id number] [place] [id number] [facility] [place] PROCALCITONIN (LAB)on 2021 Procalcitonin [Mass/Vol] 0.08 ng/mL Normal <0.09 [facility] Comment on above: Order Comment: Speci men Type: BLOOD SPECIMEN Result Comment: For a guided interpretation of test results, please visit the Change in Procalcitonin Calculator, [email or web address]. Performed By: #### P ROCAL ####[facility] LABORATORYCLIA [id number] [address] [place] Phosphate SerPl-mCncon 06-01 Phosphate [Mass/Vol] 3.5 mg/dL Normal 2.7-4.8 [facility] Comment on above: Order Comment: Speci men Type: BLOOD SPECIMEN Performed By: #### 2 4321-2, 38641-5, 2777-1 ####[facility] LABORATORYCLIA [id number] [address] [place] Prot CSF-mCncon 06-01-2021 Protein (CSF) [Mass/Vol] 52 mg/dL High 15-45 [facility] Comment on above: Order Comment: Speci men Type: CEREBROSPINAL FLUID Performed By: #### 2 342-4, 2880-3 ####[facility] LABORATORYCLIA [id number] [address] Vancomycin random [Mass/Vol] on 06-01-2021 Vancomycin [Mass/Vol] 14.6 ug/mL Normal 10.0-20.0 [facility] Comment on above: Order Comment: Speci men Type: BLOOD SPECIMEN Result Comment: Refe rence ranges and high/low indicator flags are provided as general guidelines only. The treating physician must determine appropriate target levels/dosing based on the specific clinical situation. Performed By: #### 4 091-5 ####[facility] LABORATORYCLIA [id number] [address] XR CHEST 1V FRONTALon 2021 XR CHEST 1V FRONTAL Normal [facility] XR CHEST 1V FRONTAL Normal [facility] XR NECK SOFT TISSUE 2V AP/LA Ton 06-01-2021 XR NECK SOFT TISSUE 2V AP/LAT Normal [facility] XR SKULL 2V AP/LATon 022 XR SKULL 2V AP/LAT Normal [facility] ALLIED HEALTHon 05-31-2021 ALLIED HEALTH HNO ID: [id number] Author: Christina Lynne RT(R) Service: Radiology Author Type: Technologist Type: Allied Health Filed: 05/31/2021 5:48 PM Note Text: MRI tomorrow per RN. Normal [facility] ALLIED HEALTH Normal [facility] ALLIED HEALTH Normal [facility] ALLIED HEALTH Normal [facility] ANES POSTPROC EVALon 022 ANES POSTPROC EVAL Normal [facility] ANES PRE-OPon 05-31-2021 ANES PRE-OP Normal [facility] BRIEF OP NOTon 05-31-2021 BRIEF OP NOT Normal [facility] Bacteria Bld Culton 05-31-19 22 Bacteria identified Cx Nom (Bld) CULTURE, BLOOD: No growth 5 days Normal [facility] Comment on above: Performed By: #### 6 00-7 ####[facility] LABORATORYCLIA [id number] [place] [address] [place] Bacteria CSF Culton 05-31-19 22 Bacteria identified Cx Nom (CSF) CULTURE, CSF: No growth 14 days GRAM STAIN: No organisms seen Rare Polymorphonuclear leukocytes Rare Red Blood Cells Gram stain performed on cytospun specimen. Normal [facility] Comment on above: Performed By: #### 6 06-4 ####[facility] LABORATORYCLIA [id number] [place] [address] [place] Basic metabolic 2000 panelon 05-31-2021 Anion gap [Moles/Vol] 9 mmol/L Normal 9-18 [facility] Comment on above: Order Comment: Speci men Type: BLOOD SPECIMEN Performed By: #### 2 777-1, , ####[facility] LABORATORYCLIA [id number] [place] [address] [place] Calcium [Mass/Vol] 8.2 mg/dL Low 8.5-10.2 [facility] Comment on above: Order Comment: Speci men Type: BLOOD SPECIMEN Performed By: #### 2 777-1, 63073-7, ####[facility]ORATORYCLIA [id number] [place] [address] [place] Chloride [Moles/Vol] 110 mmol/L High 97-105 [facility] Comment on above: Order Comment: Speci men Type: BLOOD SPECIMEN Performed By: #### 2 777-1, 44786-2, ####[facility]ORATORYCLIA [id number] [place] [address] [place] CO2 [Moles/Vol] 27 mmol/L Normal 22-30 [facility] Comment on above: Order Comment: Speci men Type: BLOOD SPECIMEN Performed By: #### 2 777-1, 29444-3, ####[facility] LABORATORYCLIA [id number] [address] STATES OF [facility] Creatinine [Mass/Vol] 0.85 mg/dL Normal 0.73-1.22 [facility] Comment on above: Order Comment: Speci men Type: BLOOD SPECIMEN Performed By: #### 2 777-1, 37500-2, ####[facility] LABORATORYCLIA [id number] [address] STATES OF [facility] GFR/1.73 sq M.predicted MDRD (S/P/Bld) [Vol rate/Area] mL/min/{1.73_m2} Normal [facility] Comment on above: Order Comment: Speci [...] actual GFR. Performed By: #### 2 777-1, 71584-8, ####[facility] LABORATORYCLIA [id number] [place] [address] [place] Glucose [Mass/Vol] 111 mg/dL High 74-99 [facility] Comment on above: Order Comment: [facility] Type: BLOOD SPECIMEN Result Comment: The [place] [employer] (ADA) provides guidance for cutoff [...] Standards of Medical Care in Diabetes 2016, [place] [employer]. Diabetes Care. 2016.39(Suppl 1). Performed By: #### 2 777-1, , ####[facility] LABORATORYCLIA [id number] [address] Potassium [Moles/Vol] 3.7 mmol/L Normal 3.7-5.1 [facility] Comment on above: Order Comment: Speci men Type: BLOOD SPECIMEN Performed By: #### 2 777-1, , ####[facility] LABORATORYCLIA [id number] [address] OF [facility] Sodium [Moles/Vol] 146 mmol/L High 136-144 [facility] Comment on above: Order Comment: Speci men Type: BLOOD SPECIMEN Performed By: #### 2 777-1, , ####[facility] LABORATORYCLIA [id number] [address] Urea nitrogen [Mass/Vol] 16 mg/dL Normal 9-24 [facility] Comment on above: Order Comment: Speci men Type: BLOOD SPECIMEN Performed By: #### 2 777-1, , ####[facility] LABORATORYCLIA [id number] [address] OF [facility] CASE MGT INIT ASSESon 2021 CASE MGT INIT ASSES Normal [facility] CBC W Auto Differential pane l (Bld)on 05-31-2021 Basophils (Bld) [#/Vol] 0.04 10*3/uL Normal <0.11 [facility] Comment on above: Order Comment: Speci men Type: BLOOD SPECIMEN Performed By: #### 5 7021-8 ####[facility]ORATORYCLIA [id number] [address] Basophils/100 WBC (Bld) 0.5 % Normal [facility] Comment on above: Order Comment: Speci men Type: BLOOD SPECIMEN Performed By: #### 5 7021-8 ####[facility]ORATORYCLIA [id number] [address] Differential cell count method Nom (Bld) Auto Normal [facility] Comment on above: Order Comment: Speci men Type: BLOOD SPECIMEN Performed By: #### 5 7021-8 ####[facility]ORATORYCLIA [id number] [address] Eosinophils (Bld) [#/Vol] 0.27 10*3/uL Normal <0.46 [facility] Comment on above: Order Comment: Speci men Type: BLOOD SPECIMEN Performed By: #### 5 7021-8 ####[facility]ORATORYCLIA [id number] [address] Eosinophils/100 WBC (Bld) 3.3 % Normal [facility] Comment on above: Order Comment: Speci men Type: BLOOD SPECIMEN Performed By: #### 5 7021-8 ####[facility]ATORYCLIA [id number] [address] Erythrocyte distribution width (RBC) [Ratio] 15.4 % High 11.5-15.0 [facility] Comment on above: Order Comment: Speci men Type: BLOOD SPECIMEN Performed By: #### 5 7021-8 ####[facility]ORATORYCLIA [id number] [address] Hematocrit (Bld) [Volume fraction] 37.9 % Low 39.0-51.0 [facility] Comment on above: Order Comment: Speci men Type: BLOOD SPECIMEN Performed By: #### 5 7021-8 ####[facility]ORATORYCLIA [id number] [address] Hemoglobin (Bld) [Mass/Vol] 11.5 g/dL Low 13.0-17.0 [facility] Comment on above: Order Comment: Speci men Type: BLOOD SPECIMEN Performed By: #### 5 7021-8 ####[facility] LABORATORYCLIA [id number] [address] IMMATURE GRAN % 0.4 % Normal [facility] Comment on above: Order Comment: Speci men Type: BLOOD SPECIMEN Performed By: #### 5 7021-8 ####[facility] LABORATORYCLIA [id number] [address] IMMATURE GRAN ABS 0.03 k/uL Normal <0.10 [facility] Comment on above: Order Comment: Speci men Type: BLOOD SPECIMEN Performed By: #### 5 7021-8 ####[facility] LABORATORYCLIA [id number] [address] Lymphocytes (Bld) [#/Vol] 1.90 10*3/uL Normal 1.00-4.00 [facility] Comment on above: Order Comment: Speci men Type: BLOOD SPECIMEN Performed By: #### 5 7021-8 ####[facility] LABORATORYCLIA [id number] [address] Lymphocytes/100 WBC (Bld) 23.0 % Normal [facility] Comment on above: Order Comment: Speci men Type: BLOOD SPECIMEN Performed By: #### 5 7021-8 ####[facility] LABORATORYCLIA [id number] [address] MCH (RBC) [Entitic mass] 28.0 pg Normal 26.0-34.0 [facility] Comment on above: Order Comment: Speci men Type: BLOOD SPECIMEN Performed By: #### 5 7021-8 ####[facility] LABORATORYCLIA [id number] [address] OF [place] MCHC (RBC) [Mass/Vol] 30.3 g/dL Low 30.5-36.0 [facility] Comment on above: Order Comment: Speci men Type: BLOOD SPECIMEN Performed By: #### 5 7021-8 ####[facility]ATORYCLIA [id number] [address] MCV (RBC) [Entitic vol] 92.4 fL Normal 80.0-100.0 [facility] Comment on above: Order Comment: Speci men Type: BLOOD SPECIMEN Performed By: #### 5 7021-8 ####[facility]ORATORYCLIA [id number] [address] Monocytes (Bld) [#/Vol] 0.60 10*3/uL Normal <0.87 [facility] Comment on above: Order Comment: Speci men Type: BLOOD SPECIMEN Performed By: #### 5 7021-8 ####[facility] LABORATORYCLIA [id number] [address] Monocytes/100 WBC (Bld) 7.3 % Normal [facility] Comment on above: Order Comment: Speci men Type: BLOOD SPECIMEN Performed By: #### 5 7021-8 ####[facility] LABORATORYCLIA [id number] [address] [place] Neutrophils (Bld) [#/Vol] 5.41 10*3/uL Normal 1.45-7.50 [facility] Comment on above: Order Comment: Speci men Type: BLOOD SPECIMEN Performed By: #### 5 7021-8 ####[facility]ORATORYCLIA [id number] [address] Neutrophils/100 WBC (Bld) 65.5 % Normal [facility] Comment on above: Order Comment: Speci men Type: BLOOD SPECIMEN Performed By: #### 5 7021-8 ####[facility]ORATORYCLIA [id number] [address] OF [facility] Nucleated RBC (Bld) [#/Vol] 10*3/uL Normal <0.01 [facility] Comment on above: Order Comment: Speci men Type: BLOOD SPECIMEN Performed By: #### 5 7021-8 ####[facility] LABORATORYCLIA [id number] [address] Nucleated RBC/100 WBC (Bld) [Ratio] 0.0 /100 WBC Normal 0.0 [facility] Comment on above: Order Comment: Speci men Type: BLOOD SPECIMEN Performed By: #### 5 7021-8 ####[facility] LABORATORYCLIA [id number] [address] Platelet mean volume (Bld) [Entitic vol] 9.8 fL Normal 9.0-12.7 [facility] Comment on above: Order Comment: Speci men Type: BLOOD SPECIMEN Performed By: #### 5 7021-8 ####[facility]ORATORYCLIA [id number] [address] Platelets (Bld) [#/Vol] 251 10*3/uL Normal 150-400 [facility] Comment on above: Order Comment: Speci men Type: BLOOD SPECIMEN Performed By: #### 5 7021-8 ####[facility] LABORATORYCLIA [id number] [address] RBC (Bld) [#/Vol] 4.10 10*6/uL Low 4.20-6.00 [facility] Comment on above: Order Comment: Speci men Type: BLOOD SPECIMEN Performed By: #### 5 7021-8 ####[facility] LABORATORYCLIA [id number] [address] WBC (Bld) [#/Vol] 8.25 10*3/uL Normal 3.70-11.00 [facility] Comment on above: Order Comment: Speci men Type: BLOOD SPECIMEN Performed By: #### 5 7021-8 ####[facility]ORATORYCLIA [id number] [address] CONSULTon 05-31-2021 CONSULT Normal [facility] CONSULT Normal [facility] CONSULT Normal [facility] CT BRAIN WO IVCONon 01-25-[address] BRAIN WO IVCON Normal [facility] CT BRAIN WO IVCON Normal [facility] CT CHEST WO IVCONon 05-31-19 CT CHEST WO IVCON Normal [facility] Cortis SerPl-mCncon 05-31-19 Cortisol [Mass/Vol] 31.0 ug/dL High AM: 5.3-22.5, PM: 3.4-16.8 [facility] Comment on above: Order Comment: Speci men Type: BLOOD SPECIMEN Result Comment: Prov ided reference range is from 6-10 AM sample collection time.Cortisol Reference Range: 6-10 AM = 4.8-19.5 ug/dL, 4-8 PM = 2.5-11.9 ug/dL Performed By: #### 2 143-6, 3016-3 ####[facility] LABORATORYCLIA [id number] [address] [place] Cryptoc Ag Spec Ql LAon 05-08 Cryptococcus sp Ag LA Ql (Unsp spec) Negative Normal [facility] Comment on above: Performed By: #### 4 3228-6 ####[facility] LABORATORYCLIA [id number] [address] STATES [place] HISTORY PHYSICALon HISTORY PHYSICAL Normal [facility] Magnesium [Mass/Vol] 2.2 mg/dL Normal 1.7-2.3 [facility] Comment on above: Order Comment: Speci men Type: BLOOD SPECIMEN Performed By: #### 2 777-1, 48324-3, 28721-2 ####[facility] LABORATORYCLIA [id number] [address] STATES [place] NURSING PROGon 05-31-2021 NURSING PROG Normal [facility] NUTRITIONon 05-31-2021 NUTRITION Normal [facility] OPERATIVE NOon 05-31-2021 OPERATIVE NO Normal [facility] Phosphate SerPl-mCncon 05-31 Phosphate [Mass/Vol] 3.3 mg/dL Normal 2.7-4.8 [facility] Comment on above: Order Comment: Speci men Type: BLOOD SPECIMEN Performed By: #### 2 777-1, 45121-2, 13888-5 ####[facility] LABORATORYCLIA [id number] [address] STAPH AUREUS PCRon 2 S. aureus and MRSA panel MEGAN+probe (Nose) Normal Negative [facility] Comment on above: Order Comment: Speci men Type: SWAB OF INTERNAL NOSE Result Comment: Nega tive for Staphylococcus aureus by PCR.Negative for MRSA by PCR Performed By: #### S APCR ####[facility] LABORATORYCLIA [id number] [address] OF [place] TSH SerPl-aCncon 05-31-2021 TSH Qn 0.829 m[IU]/L Normal 0.270-4.200 [facility] Comment on above: Order Comment: Speci men Type: BLOOD SPECIMEN Performed By: #### 2 143-6, 3016-3 ####[facility] LABORATORYCLIA [id number] [address] XR CHEST 1V FRONTALon 2021 XR CHEST 1V FRONTAL Normal [facility] XR CHEST 1V FRONTAL Normal [facility] Blood Cultureon 05-30-2021 Bacteria identified Cx Nom (Bld) Culture Result - No growth 5 days Normal [facility] Comment on above: Performed By: #### C AD #### [facility] [address] [place] [id number] [facility] [address] [place] [address] Bacteria identified Cx Nom (Bld) Sp. Request/Comment: - 8.2MLS Culture Result - No growth 5 days Normal [facility] Comment on above: Performed By: #### C AD #### [facility] [address] [place] [address] [facility] [address] [place], [place] [address] C-Reactive Proteinon 022 C-Reactive Protein 1.7 mg/dL High <0.9 [facility] Comment on above: Performed By: #### C ####[facility] [address] [place] [phone] DS 05-30-2021 [facility] HNO ID: [id number] Author: Columba Carroll PA-C Service: Hospital Medicine Author Type: Physician Sand Caster Type: Discharge Summary Filed: 05/30/2021 12:49 PM [...] Team: Attending Provider: Ayaka Menjivar MD Physician Sand Caster: Columba Carroll PA-C Consulting: Lilo Mendoza MD [...] consulted. Neurology suggested empiric abx coverage for PAINT TRIMMER PIPE BOWLS infection Rocephin and Vancomycin was started. Tele-neuro also suggested an MRI brain be obtained prior to LP to check IMMUNOLOGIST shunt and decrease risk of herniation in neurosurgery capable facility. Transfer to [facility] requested. Sepsis lactate was 1.3. ABG showed pO2 67.8, placed patient on 2L NC.Follow B1, B12, and RPR pending. 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 LABS AND PROCEDURES PENDING [...] intravenously q 1 (more content not included)... [facility] CONSULTon 05-30-2021 CONSULT HNO ID: [id number] Author: Juan Carlos Mckenzie MD Service: Infectious [...] vertebrae with counting from the craniocervical junction. Decorator Mannequin: PSCB Transcribe Date/Time: May 29 2021 8:59P Dictated by : CARLOS YOUNGER MD This examination was interpreted and the report reviewed and electronically signed by: CARLOS YOUNGER MD on May 29 2021 9:14PM EST ? CT CERVICAL SPINE WO (more content not included)... Normal [facility] CONSULT HNO ID: [id number] Author: Lilo Mendoza MD Service: Neurology General Author Type: Physician Type: Consults Filed: 05/30/2021 10:56 AM Note Text: [facility] TeleNeurology Consult Note Patient seen using [facility]. Recommendations are placed in the chart. Please review. For questions after hours, when teleneurologist is not available, for [place]: Please Page [phone] for the [facility] from 12pm to 8Am Admitting Provider/Consulted by:Hermes Roca MD Time of Note:05/30/2021 Patient Name:Andrew Sifuentes Admit Date:05/29/2021 Hospital Day:0 CC: altered mental status History of Present Illness: Andrew Sifuentes is a 71 year old unknown handed male with limited information about past medical history including venous insufficiency s/p EVLT, hydrocepalus s/p IMMUNOLOGIST shunt in 1987 with multiple revisions and [...] Reflexes Right Lef (more content not included)... 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 Age: [age] year old Allergies: ALLERGIES Allergen [...] Levels: No results found for: IMANI Gutierres [facility] Creatinineon 05-30-2021 Creatinine [Mass/Vol] 0.86 mg/dL Normal 0.73-1.22 [facility] Comment on above: Performed By: #### C RET1 ####[facility] [address] [place] [phone] eGFR- Amer. >60 [facility] Comment on above: Performed By: #### C RET1 ####[facility] [address] [place] [phone] eGFR-All Other Races >60 Normal [facility] Comment on above: Result Comment: eGFR (Estimated [...] at [email or web address]. Performed By: #### C RET1 ####[facility] [address] [place] [phone] Crypto Antigen Deton 022 Crypto Antigen Det Sp. Request/Comment: - SST Test Result - Duplicate request Account Credited [facility] Comment on above: Performed By: #### C AD #### [facility] [address] [place] [address] [place] [address] Crypto Antigen Det Sp. Request/Comment: - SST Test Result - Cryptococcal antigen detection result: Negative By latex agglutination [facility] Comment on above: Performed By: #### C AD #### [facility] [address] [place] [address] [place] [phone] ED NOTEon 05-30-2021 ED NOTE HNO ID: [id number] Author: Aletha Lopez RN Service: ? Author Type: Registered Nurse Type: ED Notes Filed: 05/29/2021 11:16 PM Note Text: Patient changed for incontinent urine, labs redrawn and sent. Patient aware of plan to be admitted and agrees with plan [facility] HISTORY PHYSICALon HISTORY PHYSICAL Normal [facility] HISTORY PHYSICAL HNO ID: [id number] Author: Hermes Roca MD Service: Hospital Medicine Author Type: Physician Type: HANDP Filed: 05/30/2021 1:03 AM Note Text: DEPARTMENT OF HOSPITAL MEDICINE HISTORY AND PHYSICAL EXAM SERVICE DATE: 05/29/2021 SERVICE TIME: 11:18 PM Primary Care Physician: Mateus Burris MD NIGHT AND WEEKEND COVERAGE: Please page [phone] until 7:30am this morning. After 7:30am please check the treatment team banner and page the appropriate service. Subjective CHIEF COMPLAINT: Fall HPI: This is a 71 year old male with PMH of asthma, venous insufficiency s/p EVLT, obstructive hydrocepalus s/p IMMUNOLOGIST shunt in 1987 with multiple revisions and [...] recent imaging (more content not included)... Normal [facility] Magnesium SerPl-mCncon 05-30 Magnesium [Mass/Vol] 2.5 mg/dL High 1.7-2.3 [facility] Comment on above: Order Comment: Speci men Type: BLOOD SPECIMEN Performed By: #### 1 9123-9, 2777-1 ####[facility] LABORATORYCLIA [id number] [address] NURSING PROGon 05-30-2021 NURSING PROG HNO ID: [id number] Author: Precious Cervantes RN Service: ? Author Type: Registered Nurse Type: Nursing Progress Note Filed: 05/30/2021 11:26 AM Note Text: Nursing Progress Note Patient Name: Andrew Sifuentes Patient [facility]17/[id number] Daily Note: 0700- Report received from shift commander RN, patient resting in bed at this time, call light within reach, bed low and locked. Asked the patient to state his name because shift commander RN was unable to complete his admission r/t mentation. Sister Triny stated that the patient is normally AANDOx3 at baseline. I had to sternal rubbed the patient in order to get him to respond. Stated his name was Eric and went back to sleep. 0925- Attempted to assess the patient and administer [...] This note was completed by: Precious Cervantes [facility] NURSING PROG HNO ID: [id number] Author: Lyubov Day RN Service: ? Author Type: Registered Nurse Type: Nursing Progress Note Filed: 05/30/2021 1:27 AM Note Text: Nursing Progress Note Patient Name: Andrew Sifuentes Patient Location: [place] [id number] 0100: Patient is unresponsive to questions. Patient [...] This note was completed by: Lyubov Day [facility] Phosphate SerPl-mCncon 05-30 Phosphate [Mass/Vol] 3.5 mg/dL Normal 2.7-4.8 [facility] Comment on above: Order Comment: Speci men Type: BLOOD SPECIMEN Performed By: #### 1 9123-9, 2777-1 ####[facility] LABORATORYCLIA [id number] [place] [address] [place] Sepsis Lactateon 05-30-2021 Sepsis Lactate 1.5 mmol/L Normal 0.5-2.0 [facility] Comment on above: Performed By: #### S LACT ####[facility] [address] [place] [phone] Syphilis Ttl w/Reflxon 05-30 Syphilis Interp Cannot exclude recen t Treponemal infection if specimen collected within 7 to 10 days after appearance of suspect lesions or 2 to 3 weeks after an exposure. Clinical correlation is required. Normal [facility] Comment on above: Performed By: #### S YPHTX, B1WB ####[facility] [address] [place], [place] [phone] Syphilis Screen Rslt Non-Reactive Normal Non Reactive [facility] Comment on above: Performed By: #### S YPHTX, B1WB ####[facility] [address] [place], [place] [phone] THERAPY NTon 05-30-2021 THERAPY NT HNO ID: [id number] Author: Bette Jimenez OTR/L Service: Occupational Therapy Author Type: Occupational Therapist Type: Therapy (PT/OT/Speech/Resp) Filed: 05/30/2021 10:29 AM Note Text: OCCUPATIONAL THERAPY MISSED VISIT SERVICE DATE: 05/30/2021 SERVICE TIME: 1017 to 1019 ROOM: [place] [address] Attempted Evaluation. Patient not seen due to Not following commands. Per nursing patient was seen by neuro and they are talking about having him transferred to [facility] secondary to shunt concerns. Will re attempt in the event patient continues to be admitted at [facility] and is able to participate. SIGNATURE: RADHA Andres/L PATIENT NAME: Andrew Sifuentes DATE: May 30, 2021 TIME: 10:21 AM Normal [facility] THERAPY NT HNO ID: [id number] Author: Bette Velasquez PT Service: Physical Therapy Author Type: Physical Therapist Type: Therapy (PT/OT/Speech/Resp) Filed: 05/30/2021 8:42 AM Note Text: PHYSICAL THERAPY MISSED VISIT SERVICE DATE: 05/30/2021 SERVICE TIME: 0840 to 0840 ROOM: [place] [address] Attempted Evaluation. Patient not seen due to (pt difficult to awake per RN, very lethargic). Will re-attempt when schedule permits. SIGNATURE: Bette Kaptein, PT PATIENT NAME: Andrew Sifuentes DATE: May 30, 2021 TIME: 8:41 AM Normal [facility] Toxicology Screen,Uron 05-30 Amphetamines, Urine Negative Normal Negative [facility] Comment on above: Result Comment: Cuto ff threshold at 1000 ng/mL. Performed By: #### C AD #### [facility] [address] [place] [id number] [facility] [address] [place] [phone] Barbiturates, Urine Negative Normal Negative [facility] Comment on above: Result Comment: Cuto ff threshold at 200 ng/mL. Performed By: #### C AD #### [facility] [address] [place] [id number] [facility] [address] [place] [phone] Benzodiazepines, Ur Negative Normal Negative [facility] Comment on above: Result Comment: Cuto ff threshold at 200 ng/mL. Performed By: #### C AD #### [facility] [address] [place] [id number] [facility] [address] [place] [phone] Cannabinoids, Urine Negative Normal Negative [facility] Comment on above: Result Comment: Cuto ff threshold at 50 ng/mL. Performed By: #### C AD #### [facility] [address] [place] [id number] [facility] [address] [place] [phone] Cocaine, Urine Negative Normal Negative [facility] Comment on above: Result Comment: Cuto ff threshold at 300 ng/mL. Performed By: #### C AD #### [facility] [address] [place] [id number] [facility] [address] [place] [phone] Opiates, Urine Negative Normal Negative [facility] Comment on above: Result Comment: Cuto ff threshold at 300 ng/mL. Performed By: #### C AD #### [facility] [place] [address] [place] [address] Oxycodone, Urine Negative Normal Negative [facility] Comment on above: Result Comment: Cuto ff [...] on the same specimen through Client Services ([phone]) if contacted within 48 hours of initial testing. [1]Substance Abuse and Mental Health Services Administration (2012). Clinical Drug Testing in Primary Care Technical Assistance Publication Series 32. Department of Health and Human Services, [place], p.10. Performed By: #### C AD #### [facility] [address] [place], [place] [id number] [place] [address] Phencyclidine, Urine Negative Normal Negative [facility] Comment on above: Result Comment: Cuto ff threshold at 25 ng/mL. Performed By: #### C AD #### [facility] [address] [place], [place] [id number] [place] [address] Troponin Ton 05-30-2021 Troponin T <0.010 Normal 0.000-0.029 [facility] Comment on above: Performed By: #### T NT ####[facility] [address] [place], [place] [phone] Urinalysison 05-30-2021 Bilirubin, Urine Negative Normal Negative [facility] Comment on above: Performed By: #### C AD #### [facility] [address] [place] [address] [facility] [address] [place], [place] [address] Clarity (U) Slightly Cloudy Critically abnormal Clear [facility] Comment on above: Performed By: #### C AD #### [facility] [address] [place] [address] [facility] [address] [place], [place] [address] Color (U) Yellow Normal Yellow [facility] Comment on above: Performed By: #### C AD #### [facility] [address] [place] [address] [facility] [address] [place], [place] [address] Glucose Ql (U) Negative Normal Negative [facility] Comment on above: Performed By: #### C AD #### [facility] [address] [place] [address] [facility] [address] [place], [place] [address] Hemoglobin/Blood,Ur Negative Normal [facility] Comment on above: Performed By: #### C AD #### [facility] [address] [place] [address] [facility] [address] [place], [place] [address] Ketones Ql (U) Negative Normal Negative [facility] Comment on above: Performed By: #### C AD #### [facility] [address] [place] [address] [facility] [address] [place], [place] [address] Leukest Negative Normal Negative [facility] Comment on above: Performed By: #### C AD #### [facility] [address] [place] [address] [facility] [address] [place], [place] [address] Nitrite Ql (U) Negative Normal Negative [facility] Comment on above: Performed By: #### C AD #### [facility] [address] [place] [address] [facility] [address] [place], [place] [address] pH (U) 8.5 [pH] High 5.0-8.0 [facility] Comment on above: Performed By: #### C AD #### [facility] [place] [address] [place] [address] Protein, Urine Negative Normal Negative [facility] Comment on above: Performed By: #### C AD #### [facility] [address] [place], [place] [address] [place] [address] Specific [place], Ur 1.015 Normal 1.005-1.030 [facility] Comment on above: Performed By: #### C AD #### [facility] [place] [phone] [place] [address] Urobilinogen Qn (U) 0.2 {Marianne'U}/dL Normal 0.2-1.0 [facility] Comment on above: Performed By: #### C AD #### [facility] [address] [place], [place] [address] [place] [address] Vitamin B1, Whole Blon 05-30 Vitamin B1 (TDP), WB 207.1 nmol/L Normal 84.0-213.0 [facility] Comment on above: Result Comment: This assay measures the concentration of thiamine diphosphate (TDP), the primary active form of vitamin B1. Approximately 90 percent of vitamin B1 present in whole blood is TDP. Thiamine and thiamine monophosphate, which comprise the remaining 10 percent, are not measured. This test was developed and its performance characteristics determined by [facility] [place] ( [facility]). It has not been cleared or approved by the FDA. [facility] is regulated under CLIA as qualified to perform high complexity testing. This test is used for clinical purposes. It should not be regarded as investigational or for research. Performed By: #### S YPHTX, B1WB ####[facility] [address] [place], [place] [phone] Vitamin B12on 05-30-2021 Cobalamin (Vitamin B12) [Mass/Vol] 494 pg/mL Normal 232-1245 [facility] Comment on above: Performed By: #### C AD #### [facility] [address] [place] [address] [facility] [address] [place], [place] [address] ALLIED HEALTHon 05-29-2021 [facility] HNO ID: [id number] Author: RT Kitty(Lisa) Service: Radiology Author Type: [...] RT Kitty(R) May 29, 2021 8:51 PM [facility] ALLIED HEALTH HNO ID: [id number] Author: Markie Fish Service: ? Author Type: Sr. Manager Type: Allied Health Filed: 05/29/2021 8:39 PM [...] Fish May 29, 2021 8:38 PM Normal [facility] CBC and Differentialon 05-29 Abs Baso 0.05 k/uL Normal <0.11 [facility] Comment on above: Performed By: #### C MP, MG1, CBCDIF ####[facility] [address] [place] [address] Abs Liberty 0.72 k/uL Normal <0.87 [facility] Comment on above: Performed By: #### C MP, MG1, CBCDIF ####[facility] [address] [place] [address] Abs Neut 7.86 k/uL High 1.45-7.50 [facility] Comment on above: Performed By: #### C MP, MG1, CBCDIF ####[facility] [address] [place] [address] Absolute nRBC <0.01 Normal <0.01 [facility] Comment on above: Performed By: #### C MP, MG1, CBCDIF ####[place] [address] Basophils/100 WBC (Bld) 0.5 % Normal [facility] Comment on above: Performed By: #### C MP, MG1, CBCDIF ####[facility] [address] [place] [address] DTYPE Auto Diff Normal [facility] Comment on above: Performed By: #### C MP, MG1, CBCDIF ####[place] [address] Eosinophils (Bld) [#/Vol] 0.10 10*3/uL Normal <0.46 [facility] Comment on above: Performed By: #### C MP, MG1, CBCDIF ####[facility] [address] [place] [address] Eosinophils/100 WBC (Bld) 0.9 % Normal [facility] Comment on above: Performed By: #### C MARÍA ELENA MG1, CBCDIF ####[place] [address] Erythrocyte distribution width (RBC) [Ratio] 15.5 % High 11.5-15.0 [facility] Comment on above: Performed By: #### C MARÍA ELENA MG1, CBCDIF ####[place] [address] Hematocrit (Bld) [Volume fraction] 41.6 % Normal 39.0-51.0 [facility] Comment on above: Performed By: #### C MARÍA ELENA MG1, CBCDIF ####[place] [address] Hemoglobin (Bld) [Mass/Vol] 12.7 g/dL Low 13.0-17.0 [facility] Comment on above: Performed By: #### C MARÍA ELENA MG1, CBCDIF ####[place] [address] Lymphocytes (Bld) [#/Vol] 2.04 10*3/uL Normal 1.00-4.00 [facility] Comment on above: Performed By: #### C MARÍA ELENA MG1, CBCDIF ####[place] [address] Lymphocytes/100 WBC (Bld) 18.9 % Normal [facility] Comment on above: Performed By: #### C MARÍA ELENA MG1, CBCDIF ####[place] [address] MCH 27.3 pG Normal 26.0-34.0 [facility] Comment on above: Performed By: #### C MARÍA ELENA MG1, CBCDIF ####[place] [address] MCHC (RBC) [Mass/Vol] 30.5 g/dL Normal 30.5-36.0 [facility] Comment on above: Performed By: #### C MARÍA ELENA MG1, CBCDIF ####[place] [phone] MCV (RBC) [Entitic vol] 89.5 fL Normal 80.0-100.0 [facility] Comment on above: Performed By: #### C MP, MG1, CBCDIF ####[facility] [address] [place] [address] Monocytes/100 WBC (Bld) 6.7 % Normal [facility] Comment on above: Performed By: #### C MP, MG1, CBCDIF ####[facility] [address] [place] [address] Neutrophils/100 WBC (Bld) 73.0 % Normal [facility] Comment on above: Performed By: #### C MP, MG1, CBCDIF ####[facility] [address] [place] [address] NRBCs 0.0 /100 WBC Normal 0 [facility] Comment on above: Performed By: #### C MP, MG1, CBCDIF ####[place] [address] Platelet mean volume (Bld) [Entitic vol] 10.1 fL Normal 9.0-12.7 [facility] Comment on above: Performed By: #### C MP, MG1, CBCDIF ####[facility] [address] [place] [address] Platelets (Bld) [#/Vol] 291 10*3/uL Normal 150-400 [facility] Comment on above: Performed By: #### C MP, MG1, CBCDIF ####[facility] [address] [place] [address] RBC (Bld) [#/Vol] 4.65 10*6/uL Normal 4.20-6.00 [facility] Comment on above: Performed By: #### C MP, MG1, CBCDIF ####[facility] [address] [place] [address] WBC (Bld) [#/Vol] 10.77 10*3/uL Normal 3.70-11.00 [facility] Comment on above: Performed By: #### C MP, MG1, CBCDIF ####[facility] [address] [place] [address] CT BRAIN WO IVCONon 05-29-[address] BRAIN WO IVCON * * *Final Report* * * DATE OF EXAM: May 29 2021 8:42PM [facility] 0504 - CT BRAIN WO IVCON / PROCEDURE REASON: Head trauma, headache * * * * Physician Interpretation * * * * EXAMINATION: CT CERVICAL SPINE WO IVCON, CT BRAIN WO IVCON CLINICAL HISTORY: C-spine trauma, NEXUS/CCR positive (accession [id number]), Head trauma, headache (accession [id number]) TECHNIQUE: Serial axial unenhanced images were obtained from the vertex to the foramen magnum. Spiral, high resolution axial unenhanced images were obtained from the skull base to the cervicothoracic junction with sagittal and coronal planar reconstructions. Dose-Length Product (DLP): 2132 mGy*cm. CT Dose Reduction Employed: Automated exposure control (AEC) COMPARISON: 08/13/[address] RESULT: BRAIN: Post-operative change: Right parietal approach IMMUNOLOGIST shunt is intact. The intracranial fragments of [...] vertebrae with counting from the craniocervical junction. Decorator Mannequin: OG Transcribe Date/Time: May 29 2021 8:59P Dictated by : CARLOS YOUNGER MD This examination was interpreted and the report reviewed and electronically signed by: CARLOS YOUNGER MD on May 29 2021 9:14PM EST [id number] [facility] CT CERVICAL SPINE WO IVCONon 05-29-2021 CT CERVICAL SPINE WO IVCON * * *Final Report* * * DATE OF EXAM: May 29 2021 8:42PM [facility] [place] 0505 - CT CERVICAL SPINE WO IVCON / PROCEDURE REASON: C-spine trauma, NEXUS/CCR positive * * * * Physician Interpretation * * * * EXAMINATION: CT CERVICAL SPINE WO IVCON, CT BRAIN WO IVCON CLINICAL HISTORY: C-spine trauma, NEXUS/CCR positive (accession [id number]), Head trauma, headache (accession [id number]) TECHNIQUE: Serial axial unenhanced images were obtained from the vertex to the foramen magnum. Spiral, high resolution axial unenhanced images were obtained from the skull base to the cervicothoracic junction with sagittal and coronal planar reconstructions. Dose-Length Product (DLP): 2132 mGy*cm. CT Dose Reduction Employed: Automated exposure control (AEC) COMPARISON: 08/13/[address] RESULT: BRAIN: Post-operative change: Right parietal approach IMMUNOLOGIST shunt is intact. The intracranial fragments of [...] vertebrae with counting from the craniocervical junction. Decorator Mannequin: PSCShilpa Transcribe Date/Time: May 29 2021 8:59P Dictated by : CARLOS YOUNGER MD This examination was interpreted and the report reviewed and electronically signed by: CARLOS YOUNGER MD on May 29 2021 9:14PM EST [id number] Normal [facility] Cepheid Bill only (EXCFR)on 05-29-2021 Cepheid Bill only (EXCFR) Billed for services performed Normal [facility] Comment on above: Performed By: #### C AD #### [facility] [address] [facility] [place] [address] Comp Metabolic Panelon 05-29 Albumin [Mass/Vol] 4.1 g/dL Normal 3.9-4.9 [facility] Comment on above: Performed By: #### C MP ####[facility] [address] [place] [address] ALP [Catalytic activity/Vol] 86 U/L Normal 38-113 [facility] Comment on above: Performed By: #### C MP ####[facility] [address] [place] [address] ALT [Catalytic activity/Vol] 15 U/L Normal 10-54 [facility] Comment on above: Performed By: #### C MP ####[facility] [address] [place] [address] Anion gap [Moles/Vol] 9 mmol/L Normal 9-18 [facility] Comment on above: Performed By: #### C MP ####[facility] [address] [place] [address] AST [Catalytic activity/Vol] 22 U/L Normal 14-40 [facility] Comment on above: Performed By: #### C MP ####[facility] [address] [place] [address] Bilirubin [Mass/Vol] 0.2 mg/dL Normal 0.2-1.3 [facility] Comment on above: Performed By: #### C MP ####[facility] [address] [place] [address] Calcium [Mass/Vol] 9.1 mg/dL Normal 8.5-10.2 [facility] Comment on above: Performed By: #### C MP ####[facility] [address] [place] [address] Chloride [Moles/Vol] 103 mmol/L Normal 97-105 [facility] Comment on above: Performed By: #### C MP ####[facility] [address] [place] [address] CO2 [Moles/Vol] 29 mmol/L Normal 22-30 [facility] Comment on above: Performed By: #### C MP ####[facility] [address] [place] [address] Creatinine [Mass/Vol] 0.89 mg/dL Normal 0.73-1.22 [facility] Comment on above: Performed By: #### C MP ####[facility] [address] [place] [address] eGFR- Amer. >60 Normal [facility] Comment on above: Performed By: #### C MP ####[place] [address] eGFR-All Other Races >60 Normal [facility] Comment on above: Result Comment: eGFR (Estimated [...] at [email or web address]/gfr_[email or web address]. Performed By: #### C MP ####[facility] [address] [place] [address] Glucose [Mass/Vol] 120 mg/dL High 74-99 [facility] Comment on above: Result Comment: The [place] Diabetes Association (ADA) provides guidance for cutoff [...] Standards of Medical Care in Diabetes 2016, [place] [employer]. Diabetes Care. 2016.39(Suppl 1). Performed By: #### C MP ####[facility] [address] [place] [address] Potassium [Moles/Vol] 4.2 mmol/L Normal 3.7-5.1 [facility] Comment on above: Performed By: #### C MP ####[place] [address] Protein [Mass/Vol] 7.1 g/dL Normal 6.3-8.0 [facility] Comment on above: Performed By: #### C MP ####[facility] [address] [place] [address] Sodium [Moles/Vol] 141 mmol/L Normal 136-144 [facility] Comment on above: Performed By: #### C MP ####[facility] [address] [place] [address] Urea nitrogen [Mass/Vol] 11 mg/dL Normal 9-24 [facility] Comment on above: Performed By: #### C MP ####[facility] [address] [place] [address] Albumin [Mass/Vol] 4.1 g/dL Normal 3.9-4.9 [facility] Comment on above: Performed By: #### C MP, MG1, CBCDIF ####[facility] [address] [place] [address] ALP [Catalytic activity/Vol] 86 U/L Normal 38-113 [facility] Comment on above: Performed By: #### C MP, MG1, CBCDIF ####[facility] [address] [place] [address] ALT Unable to assay due to interference from hemolysis. Suggest reorder as clinically indicated. Normal 10-54 [facility] Comment on above: Result Comment: [facility]21 by Sabino Performed By: #### C MP, MG1, CBCDIF ####[facility] [address] [place] [address] Anion gap [Moles/Vol] 12 mmol/L Normal 9-18 [facility] Comment on above: Performed By: #### C MP, MG1, CBCDIF ####[facility] [address] [place] [address] AST Unable to assay due to interference from hemolysis. Suggest reorder as clinically indicated. Normal 14-40 [facility] Comment on above: Result Comment: [facility] on 05.29.21 by Sabino Performed By: #### C MP, MG1, CBCDIF ####[facility] [address] [place] [address] Bilirubin [Mass/Vol] 0.2 mg/dL Normal 0.2-1.3 [facility] Comment on above: Performed By: #### C MP, MG1, CBCDIF ####[facility] [address] [place] [address] Calcium [Mass/Vol] 9.0 mg/dL Normal 8.5-10.2 [facility] Comment on above: Performed By: #### C MP, MG1, CBCDIF ####[facility] [address] [place] [address] Chloride [Moles/Vol] 102 mmol/L Normal 97-105 [facility] Comment on above: Performed By: #### C MP, MG1, CBCDIF ####[facility] [address] [place] [address] CO2 [Moles/Vol] 27 mmol/L Normal 22-30 [facility] Comment on above: Performed By: #### C MARÍA ELENA MG1, CBCDIF ####[facility] [address] [place] [address] Creatinine [Mass/Vol] 0.75 mg/dL Normal 0.73-1.22 [facility] Comment on above: Performed By: #### C MARÍA ELENA MG1, CBCDIF ####[facility] [address] [place] [address] eGFR- Amer. >60 Normal [facility] Comment on above: Performed By: #### C MARÍA ELENA MG1, CBCDIF ####[facility] [address] [place] [address] eGFR-All Other Races >60 Normal [facility] Comment on above: Result Comment: eGFR (Estimated [...] at [email or web address]/[email or web address]/gfr_calculator. Performed By: #### C MARÍA ELENA MG1, CBCDIF ####[facility] [address] [place] [id number] Glucose [Mass/Vol] 112 mg/dL High 74-99 [facility] Comment on above: Result Comment: The [place] Diabetes Association (ADA) provides guidance for cutoff [...] Standards of Medical Care in Diabetes 2016, [place] [employer]. Diabetes Care. 2016.39(Suppl 1). Performed By: #### C MP, MG1, CBCDIF ####[facility] [address] [place] [address] Potassium Unable to assay due to interference from hemolysis. Suggest reorder as clinically indicated. Normal 3.7-5.1 [facility] Comment on above: Result Comment: Call ed to ED Álvaro at 2129 on 05.29.21 by Sabino Performed By: #### C MP, MG1, CBCDIF ####[facility] [address] [place] [address] Protein [Mass/Vol] 7.3 g/dL Normal 6.3-8.0 [facility] Comment on above: Performed By: #### C MP, MG1, CBCDIF ####[facility] [address]26[address] [place] [address] Sodium [Moles/Vol] 141 mmol/L Normal 136-144 [facility] Comment on above: Performed By: #### C MP, MG1, CBCDIF ####[facility] [address] [place] [address] Urea nitrogen [Mass/Vol] 11 mg/dL Normal 9-24 [facility] Comment on above: Performed By: #### C MP, MG1, CBCDIF ####[facility] [address] [place] [address] ED PROV NOTEon 05-29-2021 ED PROV NOTE HNO ID: [id number] Author: Shanell Slaughter MD Service: ? Author [...] No radiographic evidence of acute cardiopulmonary disease. Decorator Mannequin: [facility] Transcribe Date/Time: May 29 2021 8:53P Dictated by : ROLY BANGURA MD This examination was interpreted and the report reviewed and electronically signed by: ROLY BANGURA MD on May 29 2021 8:54PM EST CT BRAIN WO IVCON Final Result IMPRESSION: Head CT: No acute abnormality. Cervical CT: No acute abnormality. Anatomic Variant: None. Assume 7 cervical vertebrae with counting from the craniocervical junction. Decorator Mannequin: [facility] Transcribe Date/Time: May 29 2021 8:59P Dictated [...] vertebrae with counting from the craniocervical junction. Decorator Mannequin: OG Transcribe Date/Time: May 29 (more content not included)... 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 Provider Location: [facility] Patient Location: Outpatient Hospital Physical Exam [...] MDM SIGNATURE: Flavio Pandya, DO Flavio Pandya, 05/29/[address] [facility] EXCOVD, Flu A/B, RSV (On int erfaces 1102,1120)on 05-29-2021 Influenza A PCR Negative Normal [facility] Comment on above: Performed By: #### C AD #### [facility] [address] [place] [address] Influenza B PCR Negative Normal [facility] Comment on above: Performed By: #### C AD #### [facility] [address] [place] [address] RSV PCR Negative Normal [facility] Comment on above: Result Comment: This test has been authorized by FDA under an Emergency Use Authorization (EUA). Performed By: #### C AD #### [facility] [address] [place] [address] SARS-CoV-2 (COVID-19) RNA MEGAN+probe Ql (Unsp spec) UPPER RESPIRATORY TRACT SWAB Normal [facility] Comment on above: Performed By: #### C AD #### [facility] [address] [place], [place] [address] [place] [address] SARS-CoV-2 (COVID-19) RNA MEGAN+probe Ql (Unsp spec) Negative for COVID19 (SARS CoV2) by RT-PCR or equivalent method. Normal Negative for COVID19 (SARS CoV2) by RT-PCR or equivalent method. [facility] Comment on above: Result Comment: This test has been authorized by FDA under an Emergency Use Authorization (EUA). Performed By: #### C AD #### [facility] [address] [place] [address] [facility] [address] [place], [place] [id number] Magnesiumon 05-29-2021 Magnesium [Mass/Vol] 2.2 mg/dL Normal 1.7-2.3 [facility] Comment on above: Performed By: #### C MP, MG1, CBCDIF ####[facility] [address]721[address]5160 NT Pro BNPon 05-29-2021 PRO B Natr Peptide 303 pg/mL High <125 [facility] Comment on above: Performed By: #### N TBNP ####[facility] [address] [place] [address] Troponin Ton 05-29-2021 Troponin T <0.010 Normal 0.000-0.029 [facility] Comment on above: Performed By: #### T NT ####[facility] [address] [place] [address] Troponin T Unable to assay due to interference from hemolysis. Suggest reorder as clinically indicated. Normal 0.000-0.029 [facility] Comment on above: Result Comment: Call ed to ED Álvaro at 2129 on 05.29.21 by Sabino Performed By: #### T NT ####[facility] [id number] [place] [id number] XR CHEST 1V FRONTAL PORTon 0 05-29-2021 [...] No radiographic evidence of acute cardiopulmonary disease. Decorator Mannequin: OG Transcribe Date/Time: May 29 2021 8:53P Dictated by : ROLY BANGURA MD This examination was interpreted and the report reviewed and electronically signed by: ROLY BANGURA MD on May 29 2021 8:54PM EST [id number] Normal [facility] COMPREHENSIVE PANELon 2020 Albumin [Mass/Vol] 3.9 g/dL Normal 3.4 - 5.0 [facility] Comment on above: Order Comment: PATIE NT FASTING Performed By: #### C MP #### [facility] [address] [place] [address] ALP [Catalytic activity/Vol] 71 U/L Normal 33 - 136 [facility] Comment on above: Order Comment: PATIE NT FASTING Performed By: #### C MP #### [facility] [address] [place] [address] ALT [Catalytic activity/Vol] 19 U/L Normal 10 - 52 [facility] Comment on above: Order Comment: PATIE NT FASTING Result Comment: Nasima ents treated with Sulfasalazine may generate falsely decreased results for ALT. Performed By: #### C MP #### [facility] [address] [place] [address] Anion gap [Moles/Vol] 13 mmol/L Normal 10 - 20 [facility] Comment on above: Order Comment: PATIE NT FASTING Performed By: #### C MP #### [facility] [address] [place] [address] AST [Catalytic activity/Vol] 20 U/L Normal 9 - 39 [facility] Comment on above: Order Comment: PATIE NT FASTING Performed By: #### C MP #### [facility] [address] [place] [address] Bilirubin [Mass/Vol] 0.6 mg/dL Normal 0.0 - 1.2 [facility] Comment on above: Order Comment: PATIE NT FASTING Performed By: #### C MP #### [facility] [address] [place] [address] Calcium [Mass/Vol] 9.0 mg/dL Normal 8.6 - 10.6 [facility] Comment on above: Order Comment: PATIE NT FASTING Performed By: #### C MP #### [facility] [address] [place] [address] Chloride [Moles/Vol] 103 mmol/L Normal 98 - 107 [facility] Comment on above: Order Comment: PATIE NT FASTING Performed By: #### C MP #### [facility] [address] [place] [address] Creatinine [Mass/Vol] 0.94 mg/dL Normal 0.50 - 1.30 [facility] Comment on above: Order Comment: PATIE NT FASTING Performed By: #### C MP #### [facility] [address] [place] [address] GFR- AM. >60 Normal >60 [facility] Comment on above: Order Comment: PATIE NT FASTING Result Comment: CALC ULATIONS OF ESTIMATED GFR ARE PERFORMED USING THE MDRD STUDY EQUATION FOR THE IDMS-TRACEABLE CREATININE METHODS. CLIN CHEM 2007;53:766-72 Performed By: #### C MP #### [facility] [address] [place] [address] GFR-NON AM. >60 Normal >60 [facility] Comment on above: Order Comment: PATIE NT FASTING Performed By: #### C MP #### [facility] [address] [place] [address] Glucose [Mass/Vol] 85 mg/dL Normal 74 - 99 [facility] Comment on above: Order Comment: PATIE NT FASTING Performed By: #### C MP #### [facility] [address] [place] [address] HCO3 (Bld) [Moles/Vol] 30 mmol/L Normal 21 - 32 [facility] Comment on above: Order Comment: PATIE NT FASTING Performed By: #### C MP #### [facility] [address] [place] [address] Potassium [Moles/Vol] 4.1 mmol/L Normal 3.5 - 5.3 [facility] Comment on above: Order Comment: PATIE NT FASTING Performed By: #### C MP #### [facility] [address] [place] [address] Protein [Mass/Vol] 6.6 g/dL Normal 6.4 - 8.2 [facility] Comment on above: Order Comment: PATIE NT FASTING Performed By: #### C MP #### [facility] [address] [place] [address] Sodium [Moles/Vol] 142 mmol/L Normal 136 - 145 [facility] Comment on above: Order Comment: PATIE NT FASTING Performed By: #### C MP #### [facility] [address] [place] [address] Urea nitrogen [Mass/Vol] 14 mg/dL Normal 6 - 23 [facility] Comment on above: Order Comment: PATIE NT FASTING Performed By: #### C MP #### [facility] [address] [place] [address] LIPID PANEL (CORONARY RISK 2 )on 09-03-2020 Cholesterol [Mass/Vol] 210 mg/dL High 0 - 199 [facility] Comment on above: Order Comment: PATIE NT [...] dosing. Performed By: #### L IPID #### [facility] [address] [place] [address] Cholesterol in HDL [Mass/Vol] 50.1 mg/dL Normal [facility] Comment on above: Order Comment: PATIE NT FASTING Result Comment: . AGE VERY LOW LOW NORMAL HIGH 0-19 Y < 35 < 40 40-45 ---- 20-24 Y ---- < 40 >45 ---- >24 Y ---- < 40 40-60 >60 . Performed By: #### L IPID #### [facility] [address] [place] [address] Cholesterol in LDL [Mass/Vol] 130 mg/dL High 0 - 99 [facility] Comment on above: Order Comment: PATIE NT FASTING Result Comment: . NEAR BORD AGE DESIRABLE OPTIMAL HIGH HIGH VERY HIGH 0-19 Y 0 - 109 --- 110-129 >/= 130 ---- 20-24 Y 0 - 119 --- 120-159 >/= 160 ---- >24 Y 0 - 99 100-129 130-159 160-189 >/=190 . Performed By: #### L IPID #### [facility] [address] [place] [address] Cholesterol in VLDL [Mass/Vol] 30 mg/dL Normal 0 - 40 [facility] Comment on above: Order Comment: PATIE NT FASTING Performed By: #### L IPID #### [facility] [address] [place] [address] Cholesterol.total/Chol esterol in HDL [Mass ratio] 4.2 {ratio} Normal [facility] Comment on above: Order Comment: PATIE NT FASTING Result Comment: REF VALUES DESIRABLE < 3.4 HIGH RISK > 5.0 Performed By: #### L IPID #### [facility] [address] [place] [address] Triglyceride [Mass/Vol] 152 mg/dL High 0 - 149 [facility] Comment on above: Order Comment: PATIE NT [...] Performed By: #### L IPID #### [facility] [address] [place], [place] PROSTATE SPEC.AG,SCREENon PROSTATE SPEC.AG,SCREEN 0.37 ng/mL Normal 0.00 - 4.00 [facility] Comment on above: Order Comment: PATIE NT FASTING Result Comment: The FDA requires that the method used for PSA assay be reported to the physician. Values obtained with different assay methods must not be used interchangeably. This test was performed at [facility] using the Siemens Lolay PSA method, which is a sandwich immunoassay using chemiluminescence for quantitation. The assay is approved for measurement of prostate-specific antigen (PSA) in serum and may be used in conjunction with a digital rectal examination in men 50 years and older as an aid in detection of prostate cancer. 2-Wmrdg-kdwaxjqoz inhibitors (e.g. Proscar, Finasteride, Avodart, Dutasteride and Elizabeth) for the treatment of BPH have been shown to lower PSA levels by an average of 50% after 6 months of treatment. Performed By: #### P SASC #### [facility] [address] [place] [id number] TSH WITH REFLEX TO FREE T4 I F ABNORMALon 09-03-2020 TSH Qn 0.97 m[IU]/L Normal 0.44 - 3.98 [facility] Comment on above: Order Comment: PATIE NT FASTING Result Comment: TSH testing is performed using different testing methodology at [facility] than at other [facility]. Direct result comparisons should only be made within the same method. Performed By: #### T HYDS #### [facility] [address] [place] [id number] CBC AND DIFFERENTIALon 09-02 % AUTOMATED IMMATURE GRAN 0.3 % Normal 0.0 - 0.9 [facility] Comment on above: Order Comment: PATIE NT FASTING Result Comment: [place] Granulocyte Count (IG) includes promyelocytes, myelocytes and metamyelocytes but does not include bands. Percent differential counts (%) should be interpreted in the context of the absolute cell counts (cells/L). Performed By: #### C BCDF #### [facility] [address] [place] [id number] Basophils (Bld) [#/Vol] 0.07 10*3/uL Normal 0.00 - 0.10 [facility] Comment on above: Order Comment: PATIE NT FASTING Result Comment: Auto mated WBC differential has been confirmed by manual smear. Performed By: #### C BCDF #### [facility] [address] [place] [address] Basophils/100 WBC (Bld) 0.9 % Normal 0.0 - 2.0 [facility] Comment on above: Order Comment: PATIE NT FASTING Performed By: #### C BCDF #### [facility] [address] [place] [address] Eosinophils (Bld) [#/Vol] 0.21 10*3/uL Normal 0.00 - 0.70 [facility] Comment on above: Order Comment: PATIE NT FASTING Performed By: #### C BCDF #### [facility] [address] [place] [address] Eosinophils/100 WBC (Bld) 2.8 % Normal 0.0 - 6.0 [facility] Comment on above: Order Comment: PATIE NT FASTING Performed By: #### C BCDF #### [facility] [address] [place] [address] Lymphocytes (Bld) [#/Vol] 2.28 10*3/uL Normal 1.20 - 4.80 [facility] Comment on above: Order Comment: PATIE NT FASTING Performed By: #### C BCDF #### [facility] [address] [place] [address] Lymphocytes/100 WBC (Bld) 30.9 % Normal 13.0 - 44.0 [facility] Comment on above: Order Comment: PATIE NT FASTING Performed By: #### C BCDF #### [facility] [address] [place] [address] Monocytes (Bld) [#/Vol] 0.50 10*3/uL Normal 0.10 - 1.00 [facility] Comment on above: Order Comment: PATIE NT FASTING Performed By: #### C BCDF #### [facility] [address] [place] [address] Monocytes/100 WBC (Bld) 6.8 % Normal 2.0 - 10.0 [facility] Comment on above: Order Comment: PATIE NT FASTING Performed By: #### C BCDF #### [facility] [address] [place] [address] Neutrophils (Bld) [#/Vol] 4.29 10*3/uL Normal 1.20 - 7.70 [facility] Comment on above: Order Comment: PATIE NT FASTING Performed By: #### C BCDF #### [facility] [address] [place] [address] Neutrophils/100 WBC (Bld) 58.3 % Normal 40.0 - 80.0 [facility] Comment on above: Order Comment: PATIE NT FASTING Performed By: #### C BCDF #### [facility] [address] [place] [address] Erythrocyte distribution width (RBC) [Ratio] 14.6 % High 11.5 - 14.5 [facility] Comment on above: Order Comment: PATIE NT FASTING Performed By: #### C BCDF #### [facility] [address] [place] [address] Hematocrit (Bld) [Volume fraction] 43.1 % Normal 41.0 - 52.0 [facility] Comment on above: Order Comment: PATIE NT FASTING Performed By: #### C BCDF #### [facility] [address] [place] [address] Hemoglobin (Bld) [Mass/Vol] 13.3 g/dL Low 13.5 - 17.5 [facility] Comment on above: Order Comment: PATIE NT FASTING Performed By: #### C BCDF #### [facility] [address] [place] [address] MCHC (RBC) [Mass/Vol] 30.9 g/dL Low 32.0 - 36.0 [facility] Comment on above: Order Comment: PATIE NT FASTING Performed By: #### C BCDF #### [facility] [address] [place] [address] MCV (RBC) [Entitic vol] 92 fL Normal 80 - 100 [facility] Comment on above: Order Comment: PATIE NT FASTING Performed By: #### C BCDF #### [facility] [address] [place] [address] NUCLEATED RBC 0.0 /100 WBC Normal 0.0-0.0 [facility] Comment on above: Order Comment: PATIE NT FASTING Performed By: #### C BCDF #### [facility] [address] [place] [address] Platelets (Bld) [#/Vol] 267 10*3/uL Normal 150 - 450 [facility] Comment on above: Order Comment: PATIE NT FASTING Performed By: #### C BCDF #### [facility] [address] [place] [address] RBC 4.69 x10E12/L Normal 4.50 - 5.90 [facility] Comment on above: Order Comment: PATIE NT FASTING Performed By: #### C BCDF #### [facility] [address] [place] [address] WBC (Bld) [#/Vol] 7.4 10*3/uL Normal 4.4 - 11.3 [facility] Comment on above: Order Comment: PATIE NT FASTING Performed By: #### C BCDF #### [facility] [address] [place] [address] RED CELL MORPHOLOGYon 2020 CHANELL CELLS Few Normal [facility] Comment on above: Order Comment: PATIE NT FASTING Performed By: #### M ORP2 #### [facility] [address] [place] [address] OVALOCYTES Few Normal [facility] Comment on above: Order Comment: PATIE NT FASTING Performed By: #### M ORP2 #### [facility] [address] [place] [address] POLYCHROMASIA Mild Normal [facility] Comment on above: Order Comment: PATIE NT FASTING Performed By: #### M ORP2 #### [facility] [address] [place] [address] RBC FRAGMENTS Few Normal [facility] Comment on above: Order Comment: PATIE NT FASTING Performed By: #### M ORP2 #### [facility] [address] [place] [address] RBC morphology finding Nom (Bld) See Below Normal [facility] Comment on above: Order Comment: JEREMIAS NT FASTING Performed By: #### M ORP2 #### [facility] [address] [place] [address] No Panel Informationon 01-19 76 1 MP-Cardiolo [...] [facility] rdiolo [facility] [address] [place] Work Phone: [email or web address] ?RetrieveTestByDateTime?P ttenfnKH=[id number]&Date=1 09-13-2019&Time=15%3a11%3a 03%3a00&TestType=ECG&Site =1&OutputType=PDF&Ext=PDF [facility] [address] [place] Work Phone: Otheron 11-13-2019 [facility] Complete Blood Count + Diffe rentialon [...] (Bld) [#/Vol] 7.2 {x10E9/L} 4.4 - 11.3 [facility] Work Phone: Complete Blood Count + Differential 0.1 % 0.0 - 0.9 [facility] Work Phone: Comment on above: Immature Granulocyte Count (IG) includes promyelocytes, myelocytes and metamyelocytes but does not include bands. Percent differential counts (%) should be interpreted in the context of the absolute cell counts (cells/L). Lipid Panelon 11-06-2019 Cholesterol [Mass/Vol] 181 mg/dL 0 - 199 [facility] Work Phone: Comment [...] dosing. Cholesterol in HDL [Mass/Vol] 52.1 mg/dL [facility] Work Phone: Comment on above: . AGE VERY LOW LOW N ORMAL HIGH 0-19 Y < 35 < 40 40-45 ---- 20-24 Y ---- < 40 >45 ---- >24 Y ---- < 40 40-60 >60. Cholesterol in LDL [Mass/Vol] 97 mg/dL 0 - 99 [facility] Work Phone: Comment on above: . NEAR BORD AGE IZABELLA RABLE OPTIMAL HIGH HIGH VERY HIGH 0-19 Y 0 - 109 --- 110-129 >/= 130 ---- 20-24 Y 0 - 119 --- 120-159 >/= 160 ---- >24 Y 0 - 99 100-129 130-159 160-189 >/=190. Cholesterol.total/Chol esterol in HDL [Mass ratio] 3.5 {ratio} [facility] Work Phone: Comment on above: REF VALUESDESIRABLE < 3.4HIGH RISK > 5.0 Triglyceride [Mass/Vol] 158 mg/dL above high threshold 0 - 149 [facility] Work Phone: Comment on above: . [...] Lipid Panel 32 mg/dL 0 - 40 [facility] Work Phone: Metabolic Panelon 11-06-2019 ALP [Catalytic activity/Vol] 70 U/L 33 - 136 [facility] Work Phone: Anion gap [Moles/Vol] 13 mmol/L 10 - 20 [facility] Work Phone: Bilirubin [Mass/Vol] 0.6 mg/dL 0.0 - 1.2 [facility] Work Phone: Calcium [Mass/Vol] 9.4 mg/dL 8.6 - 10.6 [facility] Work Phone: Chloride [Moles/Vol] 99 mmol/L 98 - 107 [facility] Phys[facility] Work Phone: CO2 [Moles/Vol] 30 mmol/L 21 - 32 [facility] Work Phone: Creatinine [Mass/Vol] 0.87 mg/dL See Below [facility] Work Phone: Comment on above: Reference Range: 0.5 0 - 1.30 Glucose [Mass/Vol] 89 mg/dL 74 - 99 [facility] Work Phone: Potassium [Moles/Vol] 4.3 mmol/L 3.5 - 5.3 [facility] Work Phone: Protein [Mass/Vol] 7.3 g/dL 6.4 - 8.2 [facility] Work Phone: Sodium [Moles/Vol] 138 mmol/L 136 - 145 [facility] Work Phone: Urea nitrogen [Mass/Vol] 14 mg/dL 6 - 23 [facility] Work Phone: Otheron 11-06-2019 Albumin BCP dye [Mass/Vol] 4.4 g/dL 3.4 - 5.0 [facility] Work Phone: ALT With P-5'-P [Catalytic activity/Vol] 11 U/L 10 - 52 [facility] Work Phone: Comment on above: Patients treated wit h Sulfasalazine may generate falsely decreased results for ALT. AST With P-5'-P [Catalytic activity/Vol] 17 U/L 9 - 39 [facility] Work Phone: >60 >60 [facility] Work Phone: Comment on above: CALCULATIONS OF LUZMARIA MATED GFR ARE PERFORMED USING THE MDRD STUDY EQUATION FOR THE IDMS-TRACEABLE CREATININE METHODS. CLIN CHEM 2007;53:766-72 Culture, urine Bacteria identified Cx Nom (U) Mixed Gram Pos & Gram Neg Org [facility] Work Phone: Bacteria identified Cx Nom (U) Klebsiella pneumoniae sp pneum [facility] Work Phone: Vital Signs Date Time Vital Sign Value Performing Clinician Facility 09-13-2023 11:48-0400 Body height 175.3 cm Reebcca Buck MD Work Phone: [facility] 09-13-2023 11:48-0400 Body mass index (BMI) [Ratio] 25.84 kg/m2 Rebecca Buck MD Work Phone: [facility] 09-13-2023 11:48-0400 Body weight 79.38 kg Rebecca Buck MD Work Phone: [employer] [employer] 08-13-2023 09:56-0400 Body height 175.3 cm Rebecca Buck MD Work Phone: [facility] [employer] 08-13-2023 09:56-0400 Body mass index (BMI) [Ratio] 25.84 kg/m2 Rebecca Buck MD Work Phone: [facility] [employer] 08-13-2023 09:56-0400 Body weight 79.38 kg Rebecca Buck MD Work Phone: [facility] [employer] 03-02-2022 18:49-0400 Body temperature 98.01 [degF] Lantete Munguia DO Work Phone: [employer] 03-02-2022 18:49-0400 Diastolic blood pressure 72 mm[Hg] Lanette Munguia DO Work Phone: [employer] 03-02-2022 18:49-0400 Heart rate 94 /min Lanette Munguia DO Work Phone: [employer] 03-02-2022 18:49-0400 Respiratory rate 18 /min Lanette Munguia DO Work Phone: [employer] 03-02-2022 18:49-0400 SaO2% (BldA) [Mass fraction] 98 % Lanette Munguia DO Work Phone: [employer] 03-02-2022 18:49-0400 Systolic blood pressure 104 mm[Hg] Lanette Munguia DO Work Phone: [employer] 03-02-2022 11:55-0400 Body height 175.3 cm Lanette Munguia DO Work Phone: [employer] 03-02-2022 11:55-0400 Body mass index (BMI) [Ratio] 25.84 kg/m2 Lanette Munguia DO Work Phone: [employer] 03-02-2022 11:55-0400 Body weight 79.38 kg Lanette Munguia DO Work Phone: [employer] 12-22-2021 02:08-0400 Diastolic blood pressure 67 mm[Hg] Sharon Kibe MD Work Phone: [facility] 12-22-2021 02:08-0400 Heart rate 77 /min Sharon Olivia MD Work Phone: [facility] 12-22-2021 02:08-0400 Respiratory rate 16 /min Sharon Olivia MD Work Phone: [facility] 12-22-2021 02:08-0400 SaO2% (BldA) [Mass fraction] 96 % Sharon Olivia MD Work Phone: [facility] 12-22-2021 02:08-0400 Systolic blood pressure 108 mm[Hg] Sharon Olivia MD Work Phone: [facility] 12-21-2021 23:52-0400 Body height 175.3 cm Sharon Olivia MD Work Phone: [facility] 12-21-2021 23:52-0400 Body mass index (BMI) [Ratio] 25.84 kg/m2 Sharon Olivia MD Work Phone: [facility] 12-21-2021 23:52-0400 Body temperature 97.9 [degF] Sharon Olivia MD Work Phone: [facility] 12-21-2021 23:52-0400 Body weight 79.38 kg Sharon Olivia MD Work Phone: [facility] 11-01-2021 08:41-0400 Diastolic blood pressure 77 mm[Hg] Dante Kim MD Work Phone: [facility] 11-01-2021 08:41-0400 Heart rate 75 /min Dante Kim MD Work Phone: [facility] 11-01-2021 08:41-0400 Respiratory rate 16 /min Dante Kim MD Work Phone: [facility] 11-01-2021 08:41-0400 SaO2% (BldA) [Mass fraction] 97 % Dante Kim MD Work Phone: [facility] 11-01-2021 08:41-0400 Systolic blood pressure 112 mm[Hg] Dante Kim MD Work Phone: [facility] 10-31-2021 19:13-0400 Body height 177.8 cm Dante Kim MD Work Phone: [facility] 10-31-2021 19:13-0400 Body mass index (BMI) [Ratio] 27.26 kg/m2 Dante Kim MD Work Phone: [facility] 10-31-2021 19:13-0400 Body temperature 98.49 [degF] Dante Kim MD Work Phone: [facility] 10-31-2021 19:13-0400 Body weight 86.18 kg Dante Kim MD Work Phone: [facility] 10-29-2021 07:38-0400 Body temperature 97.81 [degF] Lisa Miguel Angel DO Work Phone: [facility] 10-29-2021 07:38-0400 Diastolic blood pressure 79 mm[Hg] Lisa Miguel Angel DO Work Phone: [facility] 10-29-2021 07:38-0400 Heart rate 80 /min Lisa Miguel Angel DO Work Phone: [facility] 10-29-2021 07:38-0400 Respiratory rate 18 /min Lisa Miguel Angel DO Work Phone: [facility] 10-29-2021 07:38-0400 SaO2% (BldA) [Mass fraction] 96 % Lisa Miguel Angel DO Work Phone: [facility] 10-29-2021 07:38-0400 Systolic blood pressure 123 mm[Hg] Lisa Miguel Angel DO Work Phone: [facility] 10-25-2021 13:55-0400 Body height 170.2 cm Lisa Miguel Angel DO Work Phone: [facility] 10-21-2021 00:57-0400 Body mass index (BMI) [Ratio] 37.58 kg/m2 Lisa Miguel Angel DO Work Phone: [facility] 10-21-2021 00:57-0400 Body weight 108.86 kg Lisa Michelle DO Work Phone: [facility] 07-13-2020 13:21-0500 BMI (Body Mass Index) 40.47 kg/m2 Monika [facility]asrt [facility] Work Phone: 07-13-2020 13:21-0500 Body Temperature 98 [degF] Shiela Luís [facility] Work Phone: 07-13-2020 13:21-0500 Body weight 124.31 kg Shiela Lu[facility] Work Phone: 07-13-2020 13:21-0500 BP Diastolic 78 mm[Hg] Shiela Lu[facility] Work Phone: 07-13-2020 13:21-0500 BP Systolic 138 mm[Hg] Shiela Lu[facility] Work Phone: 07-13-2020 13:21-0500 BSA (Body Surface Area) 2.36 m2 Monika Eliasrt [facility] Work Phone: 04-13-2020 15:33-0500 BMI (Body Mass Index) 40.32 kg/m2 Wing Ritter [facility] Work Phone: 04-13-2020 15:33-0500 Body weight 123.83 kg Wing Ritter [facility] Work Phone: 04-13-2020 15:33-0500 BP Diastolic 82 mm[Hg] Wing Harrison [facility] Work Phone: Comment on above: Location: E; Position: Sitting 04-13-2020 15:33-0500 BP Systolic 145 mm[Hg] Wing Ritter [facility] Work Phone: Comment on above: Location: RUE; Position: Sitting 04-13-2020 15:33-0500 BSA (Body Surface Area) 2.36 m2 [facility] Work Phone: 04-13-2020 15:33-0500 Height 175.26 cm Wing [facility] Work Phone: 04-13-2020 15:33-0500 Pulse (Heart Rate) 98 /min [facility] Work Phone: 04-13-2020 15:33-0500 Pulse Oximetry 98 % [facility] Physician [facility] Work Phone: Comment on above: Source: 04-13-2020 15:33-0500 0 1 [facility] Work Phone: Comment on above: Pain Scale 01-20-2020 16:39-0400 Body height 175.26 cm Monika Staley MD MP-Cardiolog y-Med [facility] [address] [place] Work Phone: 01-20-2020 16:39-0400 Body mass index (BMI) [Ratio] 39.28 kg/m2 Monika Staley MD CK-Xangepjxez-Ozs r[facility] [address] [place] Work Phone: 01-20-2020 16:39-0400 Body surface area Derived from formula 2.33 m2 Monika Staley MD NW-Bcbtflfpqy-Hvm russ [address] [place] Work Phone: 01-20-2020 16:39-0400 Body weight 120.66 kg Monika Staley MD MP-Cardiolog y-[facility] [address] [place] Work Phone: 01-20-2020 16:39-0400 Diastolic blood pressure 84 mm[Hg] Monika Staley MD YO-Xtfdynnegp-Uij russ [address] [place] Work Phone: Comment on above: Location: [facility]; Position: Sitting 01-20-2020 16:39-0400 Heart rate 80 /min Monika Staley MD [facility]-Cardiolog [facility] [address] [place] Work Phone: 01-20-2020 16:39-0400 SaO2% (BldA) [Mass fraction] 100 % Monika Staley MD GV-Ysfoiwrvbs-Qif russ [address] [place] Work Phone: Comment on above: Source: 01-20-2020 16:39-0400 Systolic blood pressure 144 mm[Hg] Monika Staley MD SQ-Irgiujqwoj-Jpy russ [address] [place] Work Phone: Comment on above: Location: [facility]; Position: Sitting 11-06-2019 15:29-0400 BMI (Body [...] Date Encounter Type Care Provider Facility [facility]: [facility] Start[facility] 11-17-2024 ambulatory [facility] Facility:[facility] Start: 11-13-[facility] Start: 11-10-2024 [facility] Start: 11-06-2024 [facility]ulatory [facility] Start: 11-03-2024 ambulatory Carlos Cavazos OLS Faci lity:[facility] Start: 10-30-2024 [facility]ulatory [facility] Start: 10-30-2024 Registered Referred Karon casillas MD -[facility] Start: 10-27-2024 [facility]ulatory [facility] Start: 10-27-2024 Registered Referred Karon casillas MD -[facility] Start: 10-23-2024 [facility] Start: 10-23-2024 Registered [facility] Start: 10-20-2024 [facility] Start: 10-20-2024 [facility] Start: 10-16-2024 [facility] Start: 10-16-2024 Registered [facility] Start: 10-13-2024 ambulatory Carlos Cavazos OLS Faci lity:[facility] Start: 10-13-2024 Registered Referred Carlos Cavazos - [facility] Start: 10-09-2024 [facility] Start: 10-09-2024 Registered [facility] Start: 10-06-2024 ambulatory Carlos Cavazos OLS Faci lity:[facility] Start: 10-06-2024 Registered Referred Carlos Cavazos - [facility] Start: 10-02-2024 ambulatory Mahaveer Mukka flash OLS Facility:[facility] Start: 10-02-2024 Registered Referred Karon casillas MD -[facility] Start: 09-30-2024 End: 09-30-[address] Monika Staley MD Work Phone: [facility] Work Phone: Start: 09-30-2024 End: 09-30-2024 Departed Referred Karon Corrales MD -[facility] Start: 09-30-2024 Registered Referred Karon casillas MD -[facility] Start: 09-30-2024 End: 09-30-2024 ambulatory [facility] O[facility] Facility:[facility] Start: 09-25-2024 ambulatory [facility] O[facility] Facility:[facility] Start: 09-25-2024 Registered Referred Karon casillas MD -[facility] Start: 09-22-2024 End: 09-22-[address] Monika Staley MD Work Phone: -[facility] Start: 09-22-2024 End: 09-22-2024 Departed Referred Karon Corrales MD -[facility] Start: 09-22-2024 Registered Referred Karon casillas MD -[facility] Start: 09-22-2024 End: 09-22-2024 [facility] Start: 09-18-2024 End: 09-18-[address] Monika Staley MD Work Phone: -[facility] Start: 09-18-2024 End: 09-18-2024 Departed Referred Karon Corrales MD -[facility] Start: 09-18-2024 Registered Referred Karon casillas MD -[facility] Start: 09-18-2024 End: 09-18-2024 ambulatory Karon Corrales OLS Facility:[facility] Start: 09-15-2024 End: 09-15-[address] Monika Staley MD Work Phone: [facility] Work Phone: Start: 09-15-2024 End: 09-15-2024 Departed Referred Carlos Lópezsaviri -[facility] Start: 09-15-2024 Registered Referred Carlos Lópezsaros - [facility] Start: 09-15-2024 End: 09-15-2024 ambulatory Carlos Cavazos OLS Facility:[facility] Start: 09-11-2024 ambulatory Carlaraynoe Knowles flash OLS Facility:[facility] Start: 09-11-2024 Registered Referred Karon casillas MD -[facility] [employer] Start: 09-08-2024 End: 09-08-[address] Monika Staley MD Work Phone: [facility] Work Phone: Start: 09-08-2024 End: 09-08-2024 Departed Referred Karon Corrales MD -[facility] Start: 09-08-2024 Registered Referred Karon casillas MD -[facility] Start: 09-08-2024 End: 09-08-2024 [facility] Start: 09-04-2024 End: 09-04-2024 Departed Referred Carlos Lópezsaros -[facility] Start: 09-04-2024 Registered Referred Carlos Lópezsaros - [facility] Start: 09-04-2024 End: 09-04-2024 ambulatory Carlos NOVAK Facility:[facility] Start: 09-01-2024 End: 09-01-[address] Monika Staley MD Work Phone: [facility] Work Phone: Start: 09-01-2024 End: 09-01-2024 Departed Referred Carlos Cavazos -[facility] Start: 09-01-2024 Registered Referred Carlos Cavazos - [facility] Start: 09-01-2024 End: 09-01-2024 ambulatory Carlos NOVAK Facility:[facility] Start: 08-28-2024 End: 08-28-[address] Monika Staley MD Work Phone: [facility] Work Phone: Start: 08-28-2024 End: 08-28-2024 Departed Referred Carlos Maribelkameron -[facility] Start: 08-28-2024 Registered Referred Carlos Cavazos - [facility] Start: 08-28-2024 End: 08-28-2024 ambulatory Carlos NOVAK Facility:[facility] Start: 08-25-2024 End: 08-25-[address] Monika Staley MD Work Phone: [facility] Work Phone: Start: 08-25-2024 End: 08-25-2024 Departed Referred Karon Corrales MD -[facility] [employer] Start: 08-25-2024 Registered Referred Karon casillas MD -[facility] [place] [employer] Start: 08-25-2024 End: 08-25-2024 ambulatory Karon NOVAK Facility:[facility] Start: 08-21-2024 End: 08-21-[address] Monika Staley MD Work Phone: [facility] Work Phone: Start: 08-21-2024 End: 08-21-2024 Departed Referred Karon Corrales MD -[facility] [employer] Start: 08-21-2024 Registered Referred Karon casillas MD -[facility] [employer] Start: 08-21-2024 End: 08-21-2024 ambulatory Karon NOVAK Facility:[facility] Start: 08-18-2024 End: 08-18-[address] Monika Staley MD Work Phone: [facility] Work Phone: Start: 08-18-2024 End: 08-18-2024 Departed Referred Karon Corrales MD -[facility] Start: 08-18-2024 Registered Referred Karon casillas MD -[facility] Start: 08-18-2024 End: 08-18-2024 ambulatory Karon Corrales OLS Facility:[facility] Start: 08-14-2024 End: 08-14-[address] Monika Staley MD Work Phone: [facility] Work Phone: Start: 08-14-2024 End: 08-14-2024 Departed Referred Karon Corrales MD -[facility] Start: 08-14-2024 Registered Referred Karon casillas MD -[facility] Start: 08-14-2024 End: 08-14-2024 ambulatory Karon Corrales OLS Facility:[facility] Start: 08-11-2024 End: 08-11-2024 Departed Referred Karon Corrales MD -[facility] Start: 08-11-2024 Registered Referred Karon casillas MD -[facility] [facility] Start: 08-11-2024 End: 08-11-2024 ambulatory Karon Corrales OLS Facility:[facility] Start: 08-07-2024 End: 08-07-2024 Departed Referred Carlos Cavazos -[facility] Start: 08-07-2024 Registered Referred Carlos Cavazos - [facility] [employer] [facility] Start: 08-07-2024 End: 08-07-2024 ambulatory Carlos NOVAK Facility:[facility] Start: 08-04-2024 End: 08-04-[address] Monika Staley MD Work Phone: [facility] Work Phone: Start: 08-04-2024 End: 08-04-2024 Departed Referred [facility] Start: 08-04-2024 Registered Referred Carlos Reeder [facility] Start: 08-04-2024 End: 08-04-2024 ambulatory Carlos Cavzaos OLS Facility:[facility] Start: 07-31-2024 End: 07-31-[address] Monika Staley MD Work Phone: [facility] Work Phone: Start: 07-31-2024 End: 07-31-2024 [facility]ed [facility] Start: 07-31-2024 Registered [facility] Start: 07-31-2024 End: 07-31-2024 ambulatory Karon NOVAK Facility:[facility] Start: 07-28-2024 End: 07-28-[address] Monika Staley MD Work Phone: [facility] Work Phone: Start: 07-28-2024 End: 07-28-2024 Departed Referred Karon Corrales MD -[facility] [employer] Start: 07-28-2024 Registered Referred Karon casillas MD -[facility] [place] [employer] Start: 07-28-2024 End: 07-28-2024 ambulatory Karon NOVAK Facility:[facility] Start: 07-25-2024 End: 07-25-[address] Monika Staley MD Work Phone: [facility] Work Phone: Start: 07-25-2024 End: 07-25-2024 Departed [facility] Start: 07-25-2024 Registered Referred Carlos Reeder [facility] Start: 07-24-2024 End: 07-25-[address] Monika Staley MD Work Phone: [facility] Work Phone: Start: 07-24-2024 End: 07-24-2024 Departed Referred Karon Corrales MD -[facility] [employer] Start: 07-24-2024 Registered Referred Karon casillas MD -[facility] [employer] Start: 07-24-2024 End: 07-24-2024 ambulatory Karon Corrales OLS Facility:[facility] Start: 07-21-2024 End: 07-21-[address] Monika Staley MD Work Phone: [facility] Work Phone: Start: 07-21-2024 End: 07-21-2024 Departed Referred Karon Corrales MD -[facility] [employer] Start: 07-21-2024 Registered Referred Karon casillas MD -[facility] [employer] Start: 07-21-2024 End: 07-21-2024 ambulatory Karon Corrales OLS Facility:[facility] Start: 07-17-2024 End: 07-17-[address] Monika Staley MD Work Phone: [facility] Work Phone: Start: 07-17-2024 End: 07-17-2024 Departed Referred Karon Corrales MD -[facility] [employer] Start: 07-17-2024 Registered Referred Karon casillas MD -[facility] [employer] Start: 07-17-2024 End: 07-17-2024 ambulatory Karon Corrales OLS Facility:[facility] Start: 07-14-2024 End: 07-14-[address] Monika Staley MD Work Phone: [facility] Work Phone: Start: 07-14-2024 End: 07-14-2024 Departed Referred Carlos Cavazos -[facility] Start: 07-14-2024 Registered Referred Carlos Kenny - [facility] Start: 07-14-2024 End: 07-14-2024 ambulatory Carlos NOVAK Facility:[facility] Start: 07-11-2024 End: 07-11-[address] Monika Staley MD Work Phone: [facility] Work Phone: Start: 07-11-2024 End: 07-11-2024 Departed Referred Carlos Abdelrahmanviri -[facility] Start: 07-11-2024 Registered Referred Carlos Kenny - [facility] [facility] Start: 07-11-2024 End: 07-11-2024 ambulatory Carlos NOVAK Facility:[facility] Start: 07-07-2024 End: 07-07-[address] Monika Staley MD Work Phone: [facility] Work Phone: Start: 07-07-2024 End: 07-07-2024 Departed Referred Karon Corrales MD -[facility] [employer] Start: 07-07-2024 [facility] Start: 07-07-2024 End: 07-07-2024 ambulatory Karon NOVAK Facility:[facility] Start: 07-03-2024 End: 07-03-[address] Monika Staley MD Work Phone: [facility] Work Phone: Start: 07-03-2024 End: 07-03-2024 Departed Referred Kvng Crisostomo MD -[facility] [employer] Start: 07-03-2024 Registered Referred Kvng Crisostomo MD -[facility] [employer] Start: 07-03-2024 End: 07-03-2024 ambulatory Kvng NOVAK Facility:[facility] Start: 06-30-2024 End: 06-30-[address] Monika Staley MD Work Phone: [facility] Work Phone: Start: 06-30-2024 End: 06-30-2024 Departed Referred Kvng Crisostomo MD -[facility] Start: 06-30-2024 Registered Referred Kvng Crisostomo MD -[facility] Start: 06-30-2024 End: 06-30-2024 ambulatory Babrocio NOVAK Facility:[facility] Start: 06-26-2024 ambulatory Kvng NOVAK Fac ility:[facility] Start: 06-26-2024 Registered Referred Kvng Crisostomo MD -[facility] [place] [employer] Start: 06-23-2024 End: 06-23-[address] Monika Staley MD Work Phone: [facility] Work Phone: Start: 06-23-2024 End: 06-23-2024 Departed Referred Carlos Cavazos -[facility] [facility] Start: 06-23-2024 Registered Referred Carlos Cavazos - [facility] Start: 06-23-2024 End: 06-23-2024 ambulatory Carlos NOVAK Facility:[facility] Start: 06-19-2024 End: 06-19-[address] Monika Staley MD Work Phone: [facility] Work Phone: Start: 06-19-2024 End: 06-19-2024 Departed Referred Kvng Crisostomo MD -[facility] [employer] Start: 06-19-2024 Registered Referred Kvng Crisostomo MD -[facility] [employer] Start: 06-19-2024 End: 06-19-2024 ambulatory Kvng NOVAK Facility:[facility] Start: 06-16-2024 End: 06-16-[address] Monika Staley MD Work Phone: [facility] Work Phone: Start: 06-16-2024 End: 06-16-2024 Departed Referred Kvng Crisostomo MD -[facility] [employer] Start: 06-16-2024 Registered Referred Kvng Crisostomo MD -[facility] Start: 06-16-2024 End: 06-16-2024 ambulatory Kvng NOVAK Facility:[facility] Start: 06-12-2024 End: 06-12-[address] Monika Staley MD Work Phone: [facility] Work Phone: Start: 06-12-2024 End: 06-12-2024 Departed Referred Kvng Crisostomo MD -[facility] Start: 06-12-2024 Registered Referred Kvng Crisostomo MD -[facility] Start: 06-12-2024 End: 06-12-2024 ambulatory Kvng NOVAK Facility:[facility] Start: 06-09-2024 End: 06-09-[address] Monika Staley MD Work Phone: [facility] Work Phone: Start: 06-09-2024 End: 06-09-2024 Departed Referred [facility] Start: 06-09-2024 Registered Referred Carlos Reeder [facility] Start: 06-09-2024 End: 06-09-2024 ambulatory Carlos NOVAK Facility:[facility] Start: 06-05-2024 End: 06-05-[address] Monika Staley MD Work Phone: [facility] Work Phone: Start: 06-05-2024 End: 06-05-2024 Departed Ref[facility] [place] [employer] Start: 06-05-2024 End: 06-05-2024 ambulatory Kvng NOVAK Facility:[facility] Start: 06-02-2024 End: 06-02-[address] Monika Staley MD Work Phone: [facility] Work Phone: Start: 06-02-2024 End: 06-02-2024 Departed Referred Kvng Crisostomo MD -[facility] Start: 06-02-2024 Registered Referred Kvng Crisostomo MD -[facility] Start: 06-02-2024 End: 06-02-2024 ambulatory Kvng NOVAK Facility:[facility] Start: 05-29-2024 End: 05-29-[address] Monika Staley MD Work Phone: [facility] Work Phone: Start: 05-29-2024 End: 05-29-2024 Departed Referred [facility] [place] [employer] Start: 05-29-2024 Registered Referred Kvng Crisostomo MD -[facility] Start: 05-29-2024 End: 05-29-2024 ambulatory Kvng NOVAK Facility:[facility] Start: 05-26-2024 End: 05-26-[address] Monika Staley MD Work Phone: [facility] Work Phone: Start: 05-26-2024 End: 05-26-2024 Departed [facility] Start: 05-26-2024 Registered Referred Carlos Reeder [facility] Start: 05-26-2024 End: 05-26-2024 ambulatory Carlos NOVAK Facility:[facility] Start: 05-22-2024 ambulatory Kvng NOVAK Fac ility:[facility] Start: 05-22-2024 Registered [facility] Start: 05-20-2024 End: 05-20-2024 Departed Referred Kvng Crisostomo MD -[facility] [facility] Start: 05-19-2024 End: 05-20-2024 ambulatory Vicenterocio Jonesluis enrique NOVAK Facility:[facility] Start: 05-19-2024 Registered Referred Kvng Crisostomo MD -[facility] Start: 05-15-2024 End: 05-15-2024 Departed Referred Kvng Crisostomo MD -[facility] [facility] Start: 05-15-2024 End: 05-15-2024 ambulatory Kvng Andressa NOVAK Facility:[facility] Start: 05-12-2024 End: 05-12-2024 Departed Referred Carlos Cavazos -[facility] Start: 05-12-2024 End: 05-12-2024 ambulatory Carlos NOVAK Facility:[facility] Start: 05-09-2024 End: 05-09-2024 Departed Referred Kvng Crisostomo MD -[facility] Start: 05-09-2024 End: 05-09-2024 ambulatory Kvng Jonesluis enrique NOVAK Facility:[facility] Start: 05-08-2024 End: 05-08-2024 Departed Referred Kvng Crisostomo MD -[facility] Start: 05-08-2024 End: 05-08-2024 ambulatory Kvng Jonesluis enrique NOVAK Facility:[facility] Start: 05-05-2024 End: 05-05-2024 Departed Referred Kvng Crisostomo MD -[facility] Start: 05-05-2024 End: 05-05-2024 ambulatory Vicenterocio Andressa NOVAK Facility:[facility] Start: 05-01-2024 End: 05-01-2024 Departed Referred Kvng Crisostomo MD -[facility] Start: 05-01-2024 End: 05-01-2024 ambulatory Vicenterocio Andressa NOVAK Facility:[facility] Start: 04-28-2024 End: 04-28-2024 Departed Referred Carlos Cavazos -[facility] Start: 04-28-2024 End: 04-28-2024 ambulatory Carlos NOVAK Facility:[facility] Start: 04-24-2024 End: 04-24-2024 Departed Referred Kvng Crisostomo MD -[facility] Start: 04-24-2024 End: 04-24-2024 ambulatory Avisgerson Andressa NOVAK Facility:[facility] Start: 04-21-2024 End: 04-21-2024 Departed Referred Carlos Cavazos -[facility] [facility] Start: 04-21-2024 End: 04-21-2024 ambulatory Carlos NOVAK Facility:[facility] Start: 04-17-2024 ambulatory Kvng Jonesluis enrique NOVAK Fac ility:[facility] Start: 04-17-2024 Registered Referred Kvng Crisostomo MD -[facility] Start: 04-14-2024 ambulatory Kvng Andressa NOVAK Fac ility:[facility] Start: 04-14-2024 Registered Referred Kvng Crisostomo MD -[facility] Start: 04-10-2024 End: 04-10-2024 Departed Referred Kvng Crisostomo MD -[facility] Start: 04-10-2024 End: 04-10-2024 ambulatory Avisgerson Andressa NOVAK Facility:[facility] Start: 04-07-2024 End: 04-07-2024 Departed Referred Carlos Cavazos -[facility] Start: 04-07-2024 End: 04-07-2024 ambulatory Carlos NOVAK Facility:[facility] Start: 04-04-2024 ambulatory Vicenterocio Jonesluis enrique NOVAK Fac ility:[facility] Start: 04-04-2024 Registered Referred Kvng Crisostomo MD -[facility] Start: 03-31-2024 End: 03-31-2024 Departed Referred Carlos Cavazos -[facility] Start: 03-31-2024 End: 03-31-2024 ambulatory Carlos NOVAK Facility:[facility] Start: 03-27-2024 End: 03-27-2024 [facility] Start: 03-27-2024 End: 03-27-2024 ambulatory [facility] Facility:[facility] Start: 03-24-2024 End: 03-24-2024 Departed Referred Kvng Crisostomo MD -[facility] [facility] Start: 03-24-2024 End: 03-24-2024 ambulatory Kvng NOVAK Facility:[facility] Start: 03-20-2024 End: 03-20-2024 Departed Referred [facility] [employer] [facility] Start: 03-20-2024 End: 03-20-2024 ambulatory [facility] Facility:[facility] Start: 03-19-2024 End: 03-19-2024 Departed Referred Kvng Crisostomo MD -[facility] [facility] Start: 03-19-2024 End: 03-19-2024 ambulatory Kvng NOVAK Facility:[facility] Start: 03-18-2024 End: 03-18-2024 Departed Referred [facility] -[facility] [employer] [facility] Start: 03-18-2024 End: 03-18-2024 ambulatory Monika Staley Facility:[facility] Start: 03-17-2024 End: 03-17-2024 Departed Referred [facility] Start: 03-17-2024 End: 03-17-2024 ambulatory [facility] Facility:[facility] Start: 03-14-2024 End: 03-14-2024 Departed Referred Carlos Cavazos -[facility] Start: 03-14-2024 End: 03-14-2024 ambulatory Carlos NOVAK Facility:[facility] Start: 03-13-2024 End: 03-13-2024 Departed Referred [facility] -[facility] [facility] Start: 03-13-2024 End: 03-13-2024 ambulatory [facility] Facility:[facility] Start: 03-10-2024 End: 03-10-2024 ambulatory [facility] Facility:[facility] Start: 03-06-2024 End: 03-06-2024 ambulatory [facility] Facility:[facility] Start: 03-03-2024 End: 03-03-2024 ambulatory [facility] Facility:[facility] Start: 02-28-2024 End: 02-28-2024 ambulatory [facility] Facility:[facility] Start: 02-25-2024 End: 02-25-2024 ambulatory Carlos NOVAK Facility:[facility] Start: 02-21-2024 End: 02-21-2024 ambulatory [facility] Facility:[facility] Start: 02-18-2024 End: 02-18-2024 ambulatory [facility] Facility:[facility] Start: 02-14-2024 End: 02-14-2024 ambulatory [facility] Facility:[facility] Start: 02-12-2024 End: 02-12-2024 ambulatory Carlos NOVAK Facility:[facility] Start: 02-11-2024 End: 02-11-2024 ambulatory [facility] Facility:[facility] Start: 02-08-2024 End: 02-08-2024 ambulatory Carlos NOVAK Facility:[facility] Start: 02-07-2024 End: 02-07-2024 ambulatory Cralos NOVAK Facility:[facility] Start: 02-04-2024 End: 02-04-2024 ambulatory Carlos NOVAK Facility:[facility] Start: 02-01-2024 ambulatory Carlos NOVAK Faci lity:[facility] Start: 01-30-2024 End: 01-30-2024 ambulatory Carlos NOVAK Facility:[facility] Start: 01-29-2024 End: 01-29-2024 ambulatory [facility] Facility:[facility] Start: 01-21-2024 End: 01-21-2024 ambulatory Carlos NOVAK Facility:[facility] Start: 01-14-2024 End: 01-14-2024 ambulatory Carlos NOVAK Facility:[facility] Start: 01-11-2024 ambulatory Carlos NOVAK Faci lity:[facility] Start: 01-10-2024 End: 01-10-2024 ambulatory [facility] Facility:[facility] Start: 01-08-2024 End: 01-08-2024 ambulatory Peter Katsaros OLS Facility:[facility] Start: 01-01-2024 End: 01-02-2024 ambulatory Peter Katsaros OLS Facility:[facility] Start: 12-27-2023 End: 12-27-2023 ambulatory Peter Katsaros OLS Facility:[facility] Start: 12-24-2023 End: 12-24-2023 ambulatory Peter Katsaros OLS Facility:[facility] Start: 12-17-2023 End: 12-17-2023 ambulatory Peter Katsaros OLS Facility:[facility] Start: 12-04-2023 End: 12-04-2023 ambulatory Peter Katsaros OLS Facility:[facility] Start: 12-03-2023 End: 12-03-2023 ambulatory Peter Katsaros OLS Facility:[facility] Start: 11-30-2023 End: 11-30-2023 ambulatory Peter Katsaros OLS Facility:[facility] Start: 11-27-2023 End: 11-27-2023 ambulatory Peter Katsaros OLS Facility:[facility] Start: 11-26-2023 End: 11-26-2023 ambulatory Peter Katsaros OLS Facility:[facility] Start: 09-13-2023 End: 09-13-2023 ambulatory [facility] Start: 09-13-2023 End: 09-13-2023 Office outpatient visit 25 minutes Rebecca Buck MD Work Phone: [facility] Comment on above: Left flank pain (Christina magui Dx); BPH with urinary obstruction; History of kidney stones Start: 09-06-2023 End: 09-07-2023 ambulatory [facility] Start: 09-06-2023 End: 09-06-2023 Subsequent hospital visit by physician Rebecca Buck MD Work Phone: [facility] CT Imaging Comment on above: Left flank pain; Calculus of ureter Start: 08-31-2023 ambulatory Eloise Stern RN [facility] Clinical Communication Start: 08-31-2023 Patient encounter [facility] Start: 08-21-2023 Telephone encounter Rebecca Buck MD Work Phone: [facility] Clinical Communication Comment on above: CT appt Boaz advice Start: 08-21-2023 Registered Referred [facility] [place] [facility] Start: 08-13-2023 End: 08-13-2023 ambulatory REBECCA BUCK [facility] Start: 08-13-2023 End: 08-13-2023 Office outpatient new 45 minutes Rebecca Buck MD Work Phone: [facility] Comment on above: Left flank pain (Christina magui Dx); Calculus of ureter; Disease of prostate; BPH with urinary obstruction Start: 08-03-2023 End: 08-03-2023 ambulatory [facility] Work Phone: Start: 08-03-2023 End: 08-03-2023 [facility] Start: 07-20-2023 End: 07-20-2023 ambulatory [facility] Work Phone: Start: 07-20-2023 End: 07-20-2023 [facility] Start: 07-20-2023 [facility] Start: 07-18-2023 End: 07-18-2023 ambulatory [facility] Work Phone: Start: 07-18-2023 End: 07-18-2023 Departed Referred [facility] [place] [facility] Start: 07-18-2023 [facility] [place] [facility] Start: 07-16-2023 End: 07-16-2023 ambulatory [facility] Work Phone: Start: 07-16-2023 End: 07-16-2023 [facility] Start: 07-16-2023 Registered Referred [facility] [place] [facility] Start: 07-13-2023 End: 07-13-2023 ambulatory [facility] Work Phone: Start: 07-13-2023 End: 07-13-2023 [facility] Start: 07-13-2023 [facility] [place] [facility] Start: 07-12-2023 End: 07-12-2023 ambulatory [facility] Work Phone: Start: 07-12-2023 End: 07-12-2023 [facility] Start: 07-12-2023 [facility] Start: 07-05-2023 End: 07-05-2023 ambulatory [facility] Work Phone: Start: 07-05-2023 End: 07-05-2023 [facility] Start: 07-05-2023 [facility] Start: 07-02-2023 [facility] [place] [facility] Start: 06-28-2023 End: 06-28-2023 ambulatory [facility] Work Phone: Start: 06-28-2023 End: 06-28-2023 [facility] Start: 06-28-2023 [facility] [place] [facility] Start: 06-25-2023 Telephone encounter Rebecca Buck MD Work Phone: [facility] Start: 06-25-2023 End: 06-25-2023 ambulatory [facility] Work Phone: Start: 06-25-2023 End: 06-25-2023 [facility] Start: 06-25-2023 [facility] Start: 06-21-2023 End: 06-21-2023 ambulatory [facility] Work Phone: Start: 06-21-2023 End: 06-21-2023 [facility] [place] [facility] Start: 06-21-2023 Registered [facility] Start: 06-13-2023 End: 06-13-2023 ambulatory [facility] Work Phone: Start: 06-13-2023 End: 06-13-2023 [facility] [place] [facility] Start: 06-06-2023 End: 06-06-2023 ambulatory [facility] Work Phone: Start: 06-06-2023 End: 06-06-2023 [facility] Start: 06-06-2023 [facility] [place] [facility] Start: 05-23-2023 End: 05-23-2023 ambulatory [facility] Work Phone: Start: 05-23-2023 End: 05-23-2023 [facility] [place] [facility] Start: 05-09-2023 End: 05-09-2023 [facility] Start: 05-09-2023 [facility] Start: 04-23-2023 End: 04-23-2023 [facility] [place] [facility] Start: 04-09-2023 End: 04-09-2023 ambulatory [facility] Work Phone: Start: 04-09-2023 End: 04-09-2023 [facility] [place] [facility] Start: 04-09-2023 Registered [facility] [place] [facility] Start: 04-02-2023 End: 04-02-2023 ambulatory [facility] Work Phone: Start: 04-02-2023 End: 04-02-2023 [facility] [place] [facility] Start: 04-02-2023 [facility] [place] [facility] Start: 03-26-2023 End: 03-26-2023 ambulatory [facility] Work Phone: Start: 03-26-2023 End: 03-26-2023 Departed Referred [facility] Start: 03-26-2023 Registered [facility] [place] [facility] Start: 03-22-2023 End: 03-22-2023 ambulatory [facility] Work Phone: Start: 03-22-2023 End: 03-22-2023 [facility] [place] [facility] Start: 03-22-2023 Registered [facility] [place] [facility] Start: 03-08-2023 End: 03-08-2023 ambulatory [facility] Work Phone: Start: 03-08-2023 End: 03-08-2023 [facility] Start: 02-22-2023 End: 02-22-2023 ambulatory [facility] Work Phone: Start: 02-22-2023 End: 02-22-2023 [facility] Start: 02-22-2023 [facility] Start: 02-15-2023 End: 02-15-2023 ambulatory [facility] Work Phone: Start: 02-15-2023 End: 02-15-2023 [facility] Start: 02-15-2023 [facility] Start: 02-08-2023 End: 02-08-2023 ambulatory [facility] Work Phone: Start: 02-08-2023 End: 02-08-2023 Departed Referred [facility] [place] [facility] Start: 01-31-2023 End: 01-31-2023 ambulatory [facility] Work Phone: Start: 01-31-2023 End: 01-31-2023 [facility] Start: 01-31-2023 Registered [facility] [place] [facility] Start: 01-29-2023 End: 01-29-2023 [facility] [place] [facility] Start: 01-29-2023 [facility] Start: 01-26-2023 End: 01-26-2023 [facility] Start: 01-26-2023 Reg[facility] [place] [facility] Start: 01-24-2023 End: 01-24-2023 [facility] Start: 01-24-2023 Reg[facility] Start: 01-22-2023 End: 01-22-2023 ambulatory [facility] Work Phone: Start: 01-22-2023 End: 01-22-2023 [facility] Start: 01-22-2023 Reg[facility] [place] [facility] Start: 01-10-2023 End: 01-10-2023 ambulatory [facility] Work Phone: Start: 01-10-2023 End: 01-10-2023 [facility] Start: 01-10-2023 Reg[facility] [place] [facility] Start: 12-27-2022 End: 12-27-2022 ambulatory [facility] Work Phone: Start: 12-27-2022 End: 12-27-2022 Dep[facility]ed [facility] [place] [facility] Start: 12-27-2022 Reg[facility] [place] [facility] Start: 12-21-2022 End: 12-21-2022 ambulatory [facility] Work Phone: Start: 12-21-2022 End: 12-21-2022 [facility] Start: 12-21-2022 Registered [facility] [place] [facility] Start: 12-14-2022 End: 12-14-2022 ambulatory [facility] Work Phone: Start: 12-14-2022 End: 12-14-2022 [facility] Start: 12-14-2022 [facility] Start: 12-07-2022 End: 12-07-2022 ambulatory [facility] Work Phone: Start: 12-07-2022 End: 12-07-2022 Dep[facility] [place] [facility] Start: 12-07-2022 Reg[facility] [place] [facility] Start: 11-24-2022 End: 11-24-2022 ambulatory [facility] Work Phone: Start: 11-24-2022 End: 11-24-2022 [facility]ed [facility] Start: 11-24-2022 Reg[facility] [place] [facility] Start: 11-23-2022 End: 11-23-2022 ambulatory [facility] Work Phone: Start: 11-23-2022 End: 11-23-2022 [facility] Start: 11-23-2022 [facility] Start: 11-22-2022 End: 11-22-2022 ambulatory [facility] Work Phone: Start: 11-22-2022 End: 11-22-2022 [facility]ed [facility] Start: 11-22-2022 Reg[facility] [place] [facility] Start: 11-09-2022 End: 11-09-2022 ambulatory [facility] Work Phone: Start: 11-09-2022 End: 11-09-2022 Departed Referred [facility] Start: 11-09-2022 Registered Referred [facility] Start: 10-26-2022 End: 10-26-2022 Departed Referred [facility] Start: 10-26-2022 Registered Referred [facility] [place] [facility] Start: 10-12-2022 End: 10-12-2022 ambulatory [facility] Work Phone: Start: 10-12-2022 End: 10-12-2022 Dep[facility]ed [facility] [place] [facility] Start: 10-12-2022 Registered [facility] [place] [facility] Start: 10-05-2022 End: 10-05-2022 [facility]ed [facility] Start: 10-05-2022 Registered Referred [facility] Start: 09-28-2022 End: 09-28-2022 ambulatory [facility] Work Phone: Start: 09-28-2022 End: 09-28-2022 [facility] Start: 09-14-2022 End: 09-14-2022 Departed Referred [facility] [place] [facility] Start: 08-31-2022 End: 08-31-2022 [facility]ed [facility] [place] [facility] Start: 08-31-2022 [facility]istered [facility] Start: 08-23-2022 End: 08-23-2022 ambulatory [facility] Work Phone: Start: 08-23-2022 End: 08-23-2022 Dep[facility]ed [facility] [place] [facility] Start: 08-23-2022 Reg[facility] [place] [facility] Start: 08-17-2022 End: 08-17-2022 ambulatory [facility] Work Phone: Start: 08-17-2022 End: 08-17-2022 Departed Referred [facility] Start: 08-17-2022 Registered [facility] [place] [facility] Start: 08-14-2022 End: 08-14-2022 ambulatory [facility] Work Phone: Start: 08-14-2022 End: 08-14-2022 Departed Referred [facility] [place] [facility] Start: 08-14-2022 Registered [facility] [place] [facility] Start: 07-31-2022 End: 07-31-2022 ambulatory [facility] Work Phone: Start: 07-31-2022 End: 07-31-2022 Departed Referred [facility] [place] [facility] Start: 07-31-2022 Registered [facility] [place] [facility] Start: 07-24-2022 End: 07-24-2022 ambulatory [facility] Work Phone: Start: 07-24-2022 End: 07-24-2022 Departed Referred [facility] Start: 07-24-2022 Registered [facility] [place] [facility] Start: 07-20-2022 End: 07-20-2022 Departed Referred [facility] [place] [facility] Start: 07-20-2022 Registered [facility] Start: 07-17-2022 End: 07-17-2022 Departed Referred [facility] [place] [facility] Start: 07-17-2022 Registered [facility] [place] [facility] Start: 07-11-2022 Registered [facility] Start: 07-10-2022 End: 07-10-2022 ambulatory [facility] Work Phone: Start: 07-10-2022 End: 07-10-2022 Dep[facility] [place] [facility] Start: 07-10-2022 [facility] [place] [facility] Start: 07-03-2022 End: 07-03-2022 ambulatory [facility] Work Phone: Start: 07-03-2022 End: 07-03-2022 Dep[facility]ed [facility] [place] [facility] Start: 07-03-2022 [facility] Start: 06-27-2022 End: 06-27-2022 ambulatory [facility] Work Phone: Start: 06-27-2022 End: 06-27-2022 Dep[facility] [place] [facility] Start: 06-27-2022 Reg[facility] [place] [facility] Start: 06-13-2022 End: 06-13-2022 ambulatory [facility] Work Phone: Start: 06-13-2022 End: 06-13-2022 [facility] Start: 06-13-2022 Reg[facility] [place] [facility] Start: 06-06-2022 End: 06-06-2022 ambulatory [facility] Work Phone: Start: 06-06-2022 End: 06-06-2022 Dep[facility] [place] [facility] Start: 06-06-2022 Reg[facility] [place] [facility] Start: 05-30-2022 End: 05-30-2022 ambulatory [facility] Work Phone: Start: 05-30-2022 End: 05-30-2022 Departed [facility] [place] [facility] Start: 05-30-2022 [facility] Start: 05-16-2022 End: 05-16-2022 ambulatory [facility] Work Phone: Start: 05-16-2022 End: 05-16-2022 Departed Referred [facility] [place] [facility] Start: 05-16-2022 Registered Referred [facility] Start: 05-02-2022 End: 05-02-2022 ambulatory [facility] Work Phone: Start: 05-02-2022 End: 05-02-2022 Departed Referred [facility] [place] [facility] Start: 05-02-2022 Registered Referred [facility] Start: 04-27-2022 End: 04-27-2022 ambulatory [facility] Work Phone: Start: 04-27-2022 End: 04-27-2022 Departed Referred [facility] [place] [facility] Start: 04-27-2022 Registered Referred [facility] [place] [facility] Start: 04-26-2022 End: 04-26-2022 ambulatory [facility] Work Phone: Start: 04-26-2022 End: 04-26-2022 Departed Referred [facility] [place] [facility] Start: 04-11-2022 End: 04-11-2022 ambulatory [facility] Work Phone: Start: 04-11-2022 End: 04-11-2022 Departed Referred [facility] [place] [facility] Start: 03-28-2022 End: 03-28-2022 Departed Referred [facility] [place] [facility] Start: 03-28-2022 Registered [facility] Start: 03-23-2022 End: 03-23-2022 Departed Referred [facility] [place] [facility] Start: 03-23-2022 Registered Referred [facility] [place] [facility] Start: 03-16-2022 End: 03-16-2022 ambulatory [facility] Work Phone: Start: 03-16-2022 End: 03-16-2022 Departed Referred [facility] Start: 03-16-2022 Registered Referred [facility] Start: 03-09-2022 End: 03-09-2022 ambulatory [facility] Work Phone: Start: 03-09-2022 End: 03-09-2022 Departed Referred [facility] Start: 03-09-2022 Registered Referred [facility] Start: 03-06-2022 End: 03-06-2022 ambulatory [facility] Work Phone: Start: 03-06-2022 End: 03-06-2022 Departed Referred [facility] Start: 03-06-2022 Registered Referred [facility] Start: 03-02-2022 End: 03-03-2022 Emergency department patient visit UNKNOWN PROVIDER [facility] Start: 03-02-2022 End: 03-02-2022 Emergency department patient visit Lanette Charli JIMENEZ Work Phone: [facility] Emergency Dept Comment on above: Fall, initial encoun ter (Primary Dx); Anticoagulated Start: 02-20-2022 End: 02-20-2022 Departed Referred [facility] Start: 02-20-2022 Registered Referred [facility] Start: 02-13-2022 End: 02-13-2022 ambulatory [facility] Work Phone: Start: 02-13-2022 End: 02-13-2022 Departed Referred [facility] Start: 02-13-2022 Registered Referred [facility] Start: 02-06-2022 End: 02-06-2022 ambulatory [facility] Work Phone: Start: 02-06-2022 End: 02-06-2022 [facility] [place] [facility] Start: 02-06-2022 [facility] Start: 01-30-2022 End: 01-30-2022 [facility] [place] [facility] Start: 01-30-2022 [facility] [place] [facility] Start: 01-26-2022 End: 01-26-2022 ambulatory [facility] Work Phone: Start: 01-26-2022 End: 01-26-2022 [facility] [place] [facility] Start: 01-26-2022 [facility] [place] [facility] Start: 01-19-2022 End: 01-19-2022 ambulatory [facility] Work Phone: Start: 01-19-2022 End: 01-19-2022 [facility] [place] [facility] Start: 01-19-2022 [facility] Start: 01-17-2022 ambulatory [facility] Start: 01-10-2022 ambulatory [facility] Start: 01-10-2022 End: 01-10-2022 ambulatory [facility] Work Phone: Start: 01-10-2022 End: 01-10-2022 [facility] [place] [facility] Start: 01-10-2022 Reg[facility] Start: 01-06-2022 AUDIT Monika Elias rt Work Phone: [facility] Work Phone: Start: 01-05-2022 End: 01-05-2022 [facility] Start: 01-05-2022 [facility] Start: 12-30-2021 End: 12-30-2021 Departed Referred [facility] Start: 12-30-2021 Registered Referred [facility] Start: 12-28-2021 End: 12-28-2021 ambulatory [facility] Work Phone: Start: 12-28-2021 End: 12-28-2021 Departed Referred [facility] [place] [facility] Start: 12-28-2021 Registered Referred [facility] [place] [facility] Start: 12-26-2021 End: 12-26-2021 ambulatory [facility] Work Phone: Start: 12-26-2021 End: 12-26-2021 Departed Referred [facility] [place] [facility] Start: 12-26-2021 Registered Referred [facility] Start: 12-22-2021 End: 12-22-2021 ambulatory [facility] Work Phone: Start: 12-22-2021 End: 12-22-2021 Departed Referred [facility] Start: 12-22-2021 [facility] Start: 12-22-2021 End: 12-22-2021 [facility] Start: 12-21-2021 End: 12-22-2021 Emergency department patient visit Sharon Olivia MD Work Phone: [facility] Emergency Dept Comment on above: Heel ulceration, lef t, with unspecified severity (HCC) (Primary Dx) Start: 12-19-2021 End: 12-19-2021 ambulatory [facility] Work Phone: Start: 12-19-2021 End: 12-19-2021 Departed Referred [facility] Start: 12-19-2021 Registered Referred [facility] Start: 12-12-2021 End: 12-12-2021 ambulatory [facility] Work Phone: Start: 12-12-2021 End: 12-12-2021 [facility] Start: 12-12-2021 [facility] [place] [facility] Start: 12-08-2021 End: 12-08-2021 ambulatory [facility] Work Phone: Start: 12-08-2021 End: 12-08-2021 [facility] Start: 12-08-2021 [facility] [place] [facility] Start: 12-05-2021 End: 12-05-2021 ambulatory [facility] Work Phone: Start: 12-05-2021 End: 12-05-2021 [facility] [place] [facility] Start: 12-05-2021 [facility] [place] [facility] Start: 12-01-2021 End: 12-01-2021 [facility] Start: 12-01-2021 [facility] Start: 11-28-2021 End: 11-28-2021 [facility]ed [facility] Start: 11-28-2021 [facility] [place] [facility] Start: 11-25-2021 Rx Renewal Monika Elias rt Work Phone: JF-Mjcpsqvgiu-Gfuhe Work Phone: Start: 11-23-2021 End: 11-23-2021 [facility] [place] [facility] Start: 11-23-2021 [facility] Start: 11-22-2021 End: 11-22-2021 [facility] Start: 11-22-2021 Registered Referred [facility] Start: 11-21-2021 End: 11-21-2021 Departed Referred [facility] Start: 11-15-2021 AUDIT Monika Elias rt Work Phone: WK-Qgbhntbjll-Swijb Work Phone: Start: 11-14-2021 End: 11-14-2021 Departed Referred [facility] Start: 11-14-2021 Registered Referred [facility] Start: 11-08-2021 End: 11-08-2021 Departed Referred [facility] Start: 11-08-2021 Registered Referred [facility] Start: 11-04-2021 End: 11-04-2021 Departed Referred [facility] Start: 11-04-2021 Registered Referred [facility] Start: 10-31-2021 End: 11-01-2021 Emergency department patient visit UNKNOWN PROVIDER [facility] Start: 10-31-2021 End: 11-01-2021 Emergency department patient visit Dante Kim MD Work Phone: [facility] Emergency Dept Comment on above: Other fatigue (Prima ry Dx) Start: 10-31-2021 End: 10-31-2021 Departed Referred [facility] Start: 10-21-2021 End: 10-29-2021 Evaluation and management of inpatient UNKNOWN PROVIDER [facility] Start: 10-21-2021 End: 10-29-2021 Evaluation and management of inpatient Lisa Michelle DO Work Phone: [facility] Comment on above: Leg swelling (Primar y Dx); Acute deep vein thrombosis (DVT) of proximal vein of lower extremity, unspecified laterality (HCC) Start: 10-20-2021 End: 10-20-2021 Departed Referred [facility] Start: 10-17-2021 Telephone encounter Nicole davis MD Work Phone: [facility] Comment on above: Missed Appointment Start: 09-19-2021 End: 09-19-2021 Departed Referred [facility] Start: 11-02-2020 AUDIT Monika Elias rt [facility] Work Phone: Start: 10-27-2020 AUDIT Monika Elias rt Work Phone: [facility] Work Phone: Start: 07-13-2020 Patient encounter [facility] Work Phone: Start: 04-13-2020 Patient [facility] procedure [facility] Work Phone: Start: 04-07-2020 Patient encounter procedure [facility] Work Phone: Start: 03-18-2020 Patient encounter procedure Wing Stone [facility] Work Phone: Start: 01-20-2020 Patient encounter procedure Monika Staley MD SF-Crhqacigoz-Fjxkw Work Phone: Start: 11-13-2019 End: 11-13-2019 Subsequent hospital visit by physician [facility] Comment on above: Non-pressure chronic ulcer left lower leg, 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] Start: 11-06-2019 Patient encounter procedure Monika Staley MD DV-Vcmvuqmtsg-Vlgqu Work Phone: Start: 06-18-2019 End: 06-18-2019 Subsequent hospital visit by physician Sarika Salas Work Phone: [facility] Start: 06-11-2019 End: 06-11-2019 Subsequent hospital visit by physician Sarika Salas Work Phone: [facility] Procedures [...] Urine culture Start: 03-02-2022 Comprehensive metabolic panel Lanettelavern Munguia DO Work Phone: Start: 03-02-2022 Ct [...] Start: 10-26-2021 Electroencephalogram w/rec awake&asleep Sarina Pineda WIND DEVELOPMENT DIRECTOR - ASSOCIATE PROFESSOR OF PHILOSOPHY Work Phone: Start: 10-26-2021 Ct head/brain w/o co ntrast material Sarina Pineda WIND DEVELOPMENT DIRECTOR - ASSOCIATE PROFESSOR OF PHILOSOPHY Work Phone: Start: 10-26-2021 Prothrombin time Andres Sheridan MD Work Phone: Start: 10-25-2021 Speech and language therapy regime Sarina Pineda WIND DEVELOPMENT DIRECTOR - ASSOCIATE PROFESSOR OF PHILOSOPHY Work Phone: Start: 10-25-2021 Prothrombin time Andres [...] Start: 10-21-2021 Blood count reticulo cyte automated [place] B Niesha WIND DEVELOPMENT DIRECTOR - ASSOCIATE PROFESSOR OF PHILOSOPHY Work Phone: Start: 10-21-2021 C-reactive protein Loua nn B Niesha WIND DEVELOPMENT DIRECTOR - ASSOCIATE PROFESSOR OF PHILOSOPHY Work Phone: Start: 10-21-2021 Non-invas physiologi c std extremity art 2 level Shruthi Najma WIND DEVELOPMENT DIRECTOR - ASSOCIATE PROFESSOR OF PHILOSOPHY Work Phone: Start: 10-21-2021 Radex calcaneus mini mum 2 views Shruthi Najma WIND DEVELOPMENT DIRECTOR - ASSOCIATE PROFESSOR OF PHILOSOPHY Work Phone: Start: 10-21-2021 Dup-scan xtr veins [...] Comment: Speci men Type: BLOOD SPECIMENOrdering Facility: [facility] Address: [address] [place] [address] Performed By: #### T SCR ####[facility] BLOOD BANKCLIA [id number] [address] Start: 08-04-2021 Antibody screen Comment on above: Order Comment: Speci men Type: BLOOD SPECIMENOrdering Facility: [facility] Address: [address] [place] [address] Performed By: #### T SCR ####[facility] BLOOD BANKCLIA [id number] [address] Start: 08-01-2021 Antibody screen Comment on above: Order Comment: Speci men Type: BLOOD SPECIMENOrdering Facility: [facility] Address: [address] [place] [address] Performed By: #### T SCR ####[facility] BLOOD BANKCLIA [id number] [address] Start: 06-07-2021 Antibody screen Comment on above: Order Comment: Speci men Type: BLOOD SPECIMEN Performed By: #### T SCR ####[facility] BLOOD BANKCLIA [id number] [address] Start: 09-02-2020 Lipid 1996 panel - [...] DTaP/Tdap/Td vaccine (2 - Td or Tdap) [facility] Start: 09-22-2026 DTaP/Tdap/Td vaccine (2 - Td) DTaP/Tdap/Td vaccine (2 - Td) [facility] Work Phone: Start: 09-22-2026 DTaP/Tdap/Td Vaccine s (2 - Td or Tdap) DTaP/Tdap/Td Vaccines (2 - Td or Tdap) [facility] Start: 09-02-2025 Lipid panel Lipid Panel [facility] Start: 08-22-2024 DIABETES SCREEN DIABETES SCREEN [facility] Start: 12-04-2023 Lipid panel Lipids [facility] Start: 12-04-2023 Lipid screen Lipid screen [facility] Work Phone: Start: 09-13-2023 End: 09-13-2023 Patient encounter procedure 09/13/2023 11:30 AM EDT Office Visit [facility] [address] [place] [id number] Rebecca Buck MD [address] [facility] [address] [place] [address] [facility] Start: 08-31-2023 End: 08-31-2023 Patient encounter procedure 08/31/2023 9:30 AM EDT Appointment [facility] [address] [place] [id number] Rebecca Buck MD [address] [facility] [address] [place] [address] [facility] [address] [facility] Start: 08-13-2023 End: 08-12-2024 Basic metabolic 1998 panel - Serum or Plasma Basic metabolic panel Lab Routine Calculus of ureter Expected: 08/13/2023 (Approximate), Expires: 08/12/2024 [facility] Comment on above: Expected: 08/13/2023 (Approximate), Expires: 08/12/2024 Start: 08-13-2023 End: 08-12-2024 CT Abdomen WO contrast CT abdomen pelvis wo IV contrast Imaging Routine Left flank pain Calculus of ureter Expected: 08/13/2023, Expires: 08/12/2024 [facility] Comment on above: Expected: 08/13/2023 , Expires: 08/12/2024 Start: 08-13-2023 End: 02-12-2024 PSA, Monitoring ([facility]) PSA, Monitoring ([facility]) Lab Routine Disease of prostate Expected: 08/13/2023 (Approximate), Expires: 02/12/2024 [facility] Work Phone: Comment on above: Expected: 08/13/2023 (Approximate), Expires: 02/12/2024 Start: 08-13-2023 End: 08-13-2023 Patient encounter procedure 08/13/2023 10:00 AM EDT Office Visit [facility] [address] [place] [address] Rebecca Buck MD [address] [place], [place] [id number] [facility] Start: 07-17-2023 Bacteria identified in Urine by Culture [facility] Start: 07-17-2023 [facility] Start: 07-16-2023 Measurement of substance [facility] Start: 05-07-2023 Medicare Advantage A nnual Wellness Visit Medicare Advantage Annual Wellness Visit [facility] Start: 03-02-2023 Creatinine measurement Creatinine Le carmela [facility] Start: 03-02-2023 Potassium measurement Potassium Leve l [facility] Start: 08-22-2022 Diabetes mellitus screening Diabetes Screening [facility] Start: 01-05-2022 Influenza vaccination [facility] Start: 12-23-2021 EPV, Provider: Wing Ritter, Status: Pen, Time: 9:30 AM EPV, Provider: Wing Ritter, Status: Pen, Time: 9:30 AM VQ-Tulpqkafef-Jht ma Work Phone: Start: 12-05-2021 Influenza vaccination Flu vaccine (# 1) [facility] Start: 12-05-2021 Blood chemistry [facility] Work Phone: Start: 12-05-2021 Complete blood count [facility] Work Phone: Start: 12-05-2021 [facility] Work Phone: Start: 12-01-2021 [facility] Work Phone: Start: 08-05-2021 COVID-19 VACCINE (4 - Booster for Moderna series) COVID-19 VACCINE (4 - Booster for Moderna series) [facility] Start: 08-05-2021 COVID-19 Vaccine (4 - Booster for Pfizer series) COVID-19 Vaccine (4 - Booster for Pfizer series) [facility] Start: 06-01-2021 COVID-19 Vaccine (4 - Booster for Pfizer series) COVID-19 Vaccine (4 - Booster for Pfizer series) [facility] Start: 05-07-2021 ADVANCE DIRECTIVE DISCUSSION ADVANCE DIRECTIVE DISCUSSION [facility] Start: 08-11-2020 Screening for malign ant neoplasm of colon [facility] Start: 07-30-2020 Screening for malign ant neoplasm of colon [facility] Start: 01-20-2020 Echocardiography Echocardiogram [facility] [address] [place] Work Phone: Start: 01-06-2020 Influenza vaccination INFLUENZA (#1) [facility] Start: 12-04-2019 Annual Wellness Visi t (AWV) Annual Wellness Visit (AWV) [facility] Start: 12-04-2019 Creatinine monitoring Creatinine mon itoring [facility] Work Phone: Start: 12-04-2019 Hepatitis C screen Hepatitis C scree n [facility] Work Phone: Comment on above: Postponed from 05/06 (Patient Refused) Start: 12-04-2019 Potassium monitoring Potassium monit oring [facility] Work Phone: Start: 12-04-2019 Prostate specific an tigen measurement Prostate Specific Antigen (PSA) Screening or [facility] Start: 12-04-2019 Shingles Vaccine (1 of 2) Day gles Vaccine (1 of 2) [facility] Work Phone: Comment on above: Postponed from 05/06 (Patient Refused) Start: 06-07-2019 Colon Cancer Screen FIT/FOBT [facility] Work Phone: Start: 08-14-2017 LIPID SCREEN LIPID SCREEN [facility] Start: 2017 ADVANCE DIRECTIVE DISCUSSION ADVANCE DIRECTIVE DISCUSSION [facility] Start: 2017 PNEUMOCOCCAL: 65+ (1 - PCV) PNEUMOCOCCAL: 65+ (1 - PCV) [facility] Start: 2017 PNEUMOVAX AGE 65 AND OVER WITH 5YR LOOKBACK (#1) PNEUMOVAX AGE 65 AND OVER WITH 5YR LOOKBACK (#1) [facility] Start: 04-14-2016 DIABETES SCREEN DIABETES SCREEN [facility] Start: 2012 RSV Immunization age d 60 or older (1 - 1-dose 60+ series) RSV Immunization aged 60 or older (1 - 1-dose 60+ series) [facility] Start: 2007 PROSTATE CANCER SCRE ENING DISCUSSION PROSTATE CANCER SCREENING DISCUSSION [facility] Start: 2002 Shingles vaccine (1 of 2) Day gles vaccine (1 of 2) [facility] Start: 2002 SHINGRIX VACCINE (1 of 2) DAY GRIX VACCINE (1 of 2) [facility] Start: 2002 Tuberculosis screening COLOREC MONIQUE CANCER SCREENING,SEE MODIFIER [facility] Start: 2002 Zoster Vaccines (1 of 2) Zoste r Vaccines (1 of 2) [facility] Start: 1997 COLOGUARD (FIT-DNA) COLOGUARD (FIT-D NA) [facility] Start: 1997 Colonoscopy COLONOSCOPY [facility] Start: 1997 COLORECTAL CANCER SCREENING COLORECTAL CANCER SCREENING [facility] Start: [address] COLONOGRAPHY [facility] Start: 1997 FECAL OCCULT BLOOD FECAL OCCULT BLOO D [facility] Start: 1997 Screening for malign ant neoplasm of colon [facility] Start: 1997 SIGMOIDOSCOPY SIGMOIDOSCOPY [facility] Start: 1987 Diabetes screen Diabetes screen [facility] Start: 1971 Urine microalbumin profile DTAP,TDAP,TD (1 - Tdap) [facility] Start: 1970 ANNUAL PCP TEAM ANIMAL SURGEON KEESHA DISEASE VISIT ANNUAL PCP TEAM CHRONIC DISEASE VISIT [facility] Start: 1970 BP CONTROLLED (<130/80) BP CONTROLLE D (<130/80) [facility] Start: 1970 Diabetes mellitus screening Diabetes Screening [facility] Start: 1970 HEPATITIS C SCREENING HEPATITIS C SC PHIL [facility] Start: 1970 Hepatitis C screening [facility] Start: 1964 Adult depression screening assessment DEPRESSION SCREENING [facility] Start: 1964 Depression Screen Depression Screen [facility] Start: 1962 Diabetic foot examination Diabetes: Foot Exam [facility] Start: 1962 Glaucoma screening Diabetes: R etinopathy Screening [facility] Start: 1962 Preventive dental service Diabetes: Dental Exam [facility] Start: 1952 Echocardiography Echocardiogram [facility] Start: 1952 Hemoglobin A1c measurement Diabetes: Hemoglobin A1C [facility] Start: 1952 Lipid panel Lipid Panel [facility] Start: 1952 Screening for malign ant neoplasm of colon [facility] Bacteria identified in Urine by Culture Urine Culture [facility] Work Phone: End: 03-02-2022 CBC W Auto Differential panel - Blood CBC with Auto Differential Lab Routine One Time for 1 Occurrences starting 03/02/2022 until 03/02/2022 [employer] Work Phone: Comment on above: One Time for 1 Occur rences starting 03/02/2022 until 03/02/2022 End: 03-02-2022 Comprehensive metabolic 2000 panel - Serum or Plasma Comprehensive Metabolic Panel Lab STAT One Time for 1 Occurrences starting 03/02/2022 until 03/02/2022 [facility] Work Phone: Comment on above: One Time for 1 Occur rences starting 03/02/2022 until 03/02/2022 End: 09-06-2023 CT Abdomen WO contrast [facility] [email or web address] Work Phone: Comment on above: Once for 1 Occurrenc es starting 09/06/2023 until 09/06/2023 End: 12-22-2021 Culture, Blood 2 Culture, Blood 2 Microbiology STAT One Time for 1 Occurrences starting 12/22/2021 until 12/22/2021 [facility] Work Phone: Comment on above: One Time for 1 Occur rences starting 12/22/2021 until 12/22/2021 End: 12-22-2021 Microscopic examination of blood, culture Culture, Blood Microbiology STAT One Time for 1 Occurrences starting 12/22/2021 until 12/22/2021 [facility] Work Phone: Comment on above: One Time for 1 Occur rences starting 12/22/2021 until 12/22/2021 Microscopic examinat ion of blood, culture Culture, Blood Microbiology STAT 12/22/2021 12:22 AM EDT [facility] Work Phone: Oxygen therapy [[facility] Data Set] Initiate Oxygen Therapy Protocol Respiratory Care Routine As Needed until discontinued starting 10/21/2021 [facility] Comment on above: As Needed until disc ontinued starting 10/21/2021 Protime-INR Protime-INR Lab Routine Daily until discontinued starting 10/23/2021, 7 completed [facility] Work Phone: Comment on above: Daily until disconti nued starting 10/23/2021, 7 completed End: 03-02-2022 Protime-INR Protime-INR Lab Routine One Time for 1 Occurrences starting 03/02/2022 until 03/02/2022 [facility] Work Phone: Comment on above: One Time for 1 Occur rences starting 03/02/2022 until 03/02/2022 Spirometry panel Incentive stef metry Respiratory Care Routine Daily until discontinued starting 10/21/2021 [facility] Work Phone: Comment on above: Daily until disconti nued starting 10/21/2021 End: 10-21-2021 Wound ostomy eval Wound ostomy eval Wound Ostomy Routine One Time for 1 Occurrences starting 10/21/2021 until 10/21/2021 [facility] Work Phone: Comment on above: One Time for 1 Occur rences starting 10/21/2021 until 10/21/2021 [facility] NEGATED: Highlighted row has been ruled out! Planned Goals not documented BR-Qizhmsqlcu-Rjk ma Work Phone: Immunizations Immunization Date Immunization Notes Care Provider Christopher chu 03-04-2019 influenza, high dose seasonal, preservative-free [facility] Salas [facility] 12-03-2018 pneumococcal polysac charide vaccine, 23 valent Sarika ERAZOA Work Phone: 01-25-2018 influenza, high dose seasonal, preservative-free Sarika Josue [facility] 02-14-2017 influenza, injectabl e, quadrivalent, contains preservative Sarika Josue [facility] 09-22-2016 pneumococcal conjuga te vaccine, 13 valent Sarika ERAZOA Work Phone: 09-22-2016 tetanus toxoid, redu patrice diphtheria toxoid, and acellular pertussis vaccine, adsorbed Sarika ARMENDARIZ Work Phone: 02-24-2016 influenza, injectabl e, quadrivalent, contains preservative Sarika Josue ERAZOA 02-08-2015 influenza virus vacc ine, unspecified formulation Sarika ARMENDARIZ Work Phone: 02-04-2013 pneumococcal Conjuga te, unspecified formulation Sarika ARMENDARIZ Work Phone: Payers Date Payer Category Payer Unknown [id number] 11-26-2023 Self-pay 01-05-2022 Medicaid 01-05-2022 Medicare 01-05-2022 Medicare [id number] 10-05-2021 Medicaid [id number] 06-07-2021 Medicare UHC MEDICARE UHC DUAL COMPLETE HMO SNP [id number] 06/07/2021-Present [phone] [address] [place] [address] Medicare [id number] 06-07-2021 Medicare UHC MEDICARE [employer] DUAL COMPLETE [id number] 06/07/2021-Present [phone] [address] [place] [address] [id number] [id number] 11-05-2019 Medicare UHC AARP MEDICAR E [facility] MEDICARE O [id number] 11/05/2019-Present HMO [id number] [id number] 07-06-2015 Medicare UHC MEDICARE UHC MEDICARE COMPLETE xxxxxxxxx 2015-Present xxxxxxxxx [id number] [id number] 1952 Unknown [id number] 2.16.840.1.430573.3.579. 2.668 1952 Unknown [id number] 2.840.1.720638.3.579. 2.668 1952 Unknown [id number] 2.840.1.053987.3.579. 2.668 1952 Unknown [id number] 2.840.1.436574.3.579. 2.668 1952 Unknown [id number] 2.16.840.1.563690.3.579. 2.668 1952 Unknown [id number] 2.16.840.1.785043.3.579. 2.668 1952 Unknown [id number] 2.840.1.877553.3.579. 2.668 Private Health Insurance Unknown Unknown [id number] 2.16.840.1.176529.3.579. 2.462 Unknown [id number] 2.16.840.1.039765.3.579. 2.462 Unknown [id number] 2.16.840.1.707930.3.579. 2.462 Unknown [id number] 2.16.840.1.215106.3.579. 2.462 Unknown [id number] 2.16840.1.890363.3.579. 2.462 Unknown [id number] 2.16.840.1.899242.3.579. 2.462 Unknown [id number] 2.16.840.1.757279.3.579. 2.462 Unknown [id number] 2.16.840.1.738548.3.579. 2.462 Unknown [id number] 2.16.840.1.017419.3.579. 2.462 Unknown [id number] 2.16.840.1.605754.3.579. 2.462 Unknown [id number] 2.16.840.1.215368.3.579. 2.462 Unknown [id number] 2..840.1.817126.3.579. 2.462 Unknown [id number] 2..840.1.272324.3.579. 2.462 Unknown [id number] 2.840.1.811532.3.579. 2.462 Unknown [id number] 2..840.1.338773.3.579. 2.462 Unknown [id number] 2..840.1.900877.3.579. 2.462 Unknown [id number] 2..840.1.023763.3.579. 2.462 Unknown [id number] 2.16.840.1.741502.3.579. 2.462 Unknown [id number] 2.840.1.322644.3.579. 2.462 Unknown [id number] 2..840.1.534980.3.579. 2.462 Unknown [id number] 2.16.840.1.775160.3.579. 2.462 Unknown [id number] 2.16.840.1.938302.3.579. 2.462 Unknown [id number] 2.16.840.1.563609.3.579. 2.462 Unknown [id number] 2.16.840.1.322820.3.579. 2.462 Unknown [id number] 2.16.840.1.347323.3.579. 2.462 Unknown [id number] 2.16.840.1.774690.3.579. 2.462 Unknown [id number] 2.16.840.1.290412.3.579. 2.462 Unknown [id number] 2.16.840.1.645002.3.579. 2.462 Unknown [id number] 2.16.840.1.186882.3.579. 2.462 Unknown [id number] 2.16.840.1.266508.3.579. 2.462 Unknown [id number] 2.16.840.1.246937.3.579. 2.462 Unknown [id number] 2.16.840.1.358378.3.579. 2.462 Unknown [id number] 2.16.840.1.583559.3.579. 2.462 Unknown [id number] 2.16.840.1.709107.3.579. 2.462 Unknown [id number] 2.16.840.1.994609.3.579. 2.462 Unknown [id number] 2.16.840.1.669415.3.579. 2.462 Unknown [id number] 2.16.840.1.293737.3.579. 2.462 Unknown [id number] 2.16.840.1.901501.3.579. 2.462 Unknown [id number] 2.16.840.1.253834.3.579. 2.462 Unknown [id number] 2.16.840.1.160602.3.579. 2.462 Unknown [id number] 2.16.840.1.068005.3.579. 2.462 Unknown [id number] 2.16.840.1.158900.3.579. 2.462 Unknown [id number] 2.16.840.1.464313.3.579. 2.462 Unknown [id number] 2.16.840.1.043987.3.579. 2.462 Unknown [id number] 2.16.840.1.382237.3.579. 2.462 Unknown [id number] 2.16.840.1.326543.3.579. 2.462 Unknown [id number] 2.16.840.1.231209.3.579. 2.462 Unknown [id number] 2.16.840.1.602653.3.579. 2.462 Unknown [id number] 2.16.840.1.664098.3.579. 2.462 Unknown [id number] 2.16.840.1.574424.3.579. 2.462 Unknown [id number] 2.16.840.1.334603.3.579. 2.462 Unknown [id number] 2.16.840.1.781711.3.579. 2.462 Unknown [id number] 2.16.840.1.353456.3.579. 2.462 Unknown [id number] 2.16.840.1.601780.3.579. 2.462 Unknown [id number] 2.16.840.1.567996.3.579. 2.462 Unknown [id number] 2.16.840.1.213172.3.579. 2.462 Unknown [id number] 2.16.840.1.685565.3.579. 2.462 Unknown [id number] 2.16.840.1.139100.3.579. 2.462 Unknown [id number] 2.16.840.1.338591.3.579. 2.462 Unknown [id number] 2.16.840.1.152605.3.579. 2.462 Unknown [id number] 2.16.840.1.583140.3.579. 2.462 Unknown [id number] 2.16.840.1.282530.3.579. 2.462 Unknown [id number] 2.16.840.1.936017.3.579. 2.462 Unknown [id number] 2.16.840.1.963537.3.579. 2.462 Unknown [id number] 2.16.840.1.847557.3.579. 2.462 Unknown [id number] 2.16840.1.635007.3.579. 2.462 Unknown [id number] 2.840.1.832608.3.579. 2.462 Unknown [id number] 2.840.1.188632.3.579. 2.462 Unknown [id number] 2.840.1.350755.3.579. 2.462 Unknown [id number] 2.840.1.593781.3.579. 2.462 Unknown [id number] 2.840.1.302824.3.579. 2.462 Unknown [id number] 2.840.1.116556.3.579. 2.462 Unknown [id number] 2.840.1.075349.3.579. 2.462 Unknown [id number] 2.840.1.980205.3.579. 2.462 Unknown [id number] 2.840.1.288570.3.579. 2.462 Unknown [id number] 2.840.1.861719.3.579. 2.462 Unknown [id number] 2.840.1.089594.3.579. 2.462 Unknown [id number] 2.16.840.1.925154.3.579. 2.462 Unknown [id number] 2.16840.1.185413.3.579. 2.462 Unknown [id number] 2.840.1.459610.3.579. 2.462 Unknown [id number] 2.16.840.1.988388.3.579. 2.462 Unknown [id number] 2.16840.1.725916.3.579. 2.462 Unknown [id number] 2.16.840.1.737895.3.579. 2.462 Unknown [id number] 2.840.1.990496.3.579. 2.462 Unknown [id number] 2.16840.1.880521.3.579. 2.462 Unknown [id number] 2.840.1.089431.3.579. 2.462 Unknown [id number] 2.840.1.313625.3.579. 2.462 Unknown [id number] 2.840.1.089223.3.579. 2.462 Unknown [id number] 2.840.1.619120.3.579. 2.462 Unknown [id number] 2.840.1.329929.3.579. 2.462 Unknown [id number] 2.840.1.038147.3.579. 2.462 Unknown [id number] 2.840.1.080293.3.579. 2.462 Unknown [id number] 2.840.1.108426.3.579. 2.462 Unknown [id number] 2.840.1.671969.3.579. 2.462 Unknown [id number] 2.840.1.023886.3.579. 2.462 Unknown [id number] 2.840.1.523374.3.579. 2.462 Unknown [id number] 2.840.1.953274.3.579. 2.462 Unknown [id number] 2.840.1.737478.3.579. 2.462 Unknown [id number] 2.16.840.1.492307.3.579. 2.462 Unknown [id number] 2.16.840.1.427608.3.579. 2.462 Unknown [id number] 2.16.840.1.535053.3.579. 2.462 Unknown [id number] 2.16.840.1.450870.3.579. 2.462 Unknown [id number] 2.16.840.1.429831.3.579. 2.462 Unknown [id number] 2.16.840.1.180601.3.579. 2.462 Unknown [id number] 2.16.840.1.149443.3.579. 2.462 Unknown [id number] 2.16.840.1.480261.3.579. 2.462 Unknown [id number] 2.16.840.1.840344.3.579. 2.462 Unknown [id number] 2.16.840.1.043167.3.579. 2.462 Unknown [id number] 2.16.840.1.760692.3.579. 2.462 Unknown [id number] 2.16.840.1.472864.3.579. 2.462 Social History Date Type Detail Facility Start: 05-23-2018 End: 05-19-2019 Tobacco smoking status [facility] Former smoker [employer] Work Phone: History of tobacco use Cigar Smoker [employer] Work Phone: Start: 05-19-2019 End: 08-13-2023 Cigarettes smoked current (pack per day) - Reported [employer] Work Phone: Start: 05-19-2019 End: 08-13-2023 Alcohol intake Current non-drinker of alcohol (finding) [employer] Work Phone: Start: 12-03-2018 History SDOH Physica l Activity DPW 7 [employer] [facility] Work Phone: Start: 12-03-2018 History SDOH Physica l Activity MPS 9 [employer] [facility] Work Phone: Start: 12-03-2018 End: 10-31-2021 History SDOH Stress [facility] Phone: Start: 12-03-2018 History SDOH Financial 5 [facility] Work Phone: Start: 12-03-2018 History SDOH Transpo rt Med 2 [facility] Work Phone: Start: 1950 Sex Assigned At Not on file [facility] Work Phone: Start: 08-13-2012 End: 11-13-2019 Tobacco smoking status NHIS Never smoker [facility] Start: 05-23-2018 End: 11-13-2019 Tobacco use and exposure Never used [facility] Start: 11-13-2019 History SDOH Alcohol Std Drinks 98 [facility] Start: 10-11-2021 End: 02-15-2022 Exposure to SARS-CoV-2 (event) Not sure [facility] Start: 1950 Sex Assigned At Male [facility] History of tobacco use Current smoker [facility] Work Phone: History of tobacco use Cigarette Smoker [facility] Work Phone: Start: 10-31-2021 End: 08-13-2023 Tobacco use panel [facility] Tobacco smoking stat us AZIS Unknown if ever smoked [facility] Work Phone: Start: 07-11-2024 End: 08-21-2024 Sex Male (finding) [facility] NEGATED: Highlighted row - - [facility] Work Phone: Medical Equipment Procedure Code Equipment Code Equipment Origin al Text Equipment Identifier Dates Kit Bactiseal Woodard maria guadalupe Silicone Barium Catheter Shunt Sterile - [id number] Start: 06-08-2021 Catheter Bactise al 14cm External Drainage Csf Sterile Latex Free - [id number] Start: 08-05-2021 Valve Certas Shannon nt Inline - [id number] Start: 06-08-2021 Valve Certas Shannon nt Inline - [id number] Start: 08-05-20[address] Valve Certas [address] [facility] - [id number] Start: 08-09-2021 Goals Date Patient Goal [...] confident he can reach it. Added to S exercise information Formatting of this n ote might be different from the original. Patient stated he would like to exercise more, he exercises currently 7 days a week for 90 minutes. The barriers he has is muscle atrophy, he would like to meet his goal soon and is 5/10 confident he can reach it. Added to S exercise information Functional Status Date Assessment Result Facility NEGATED: Highlighted row Functional performance Functional status health issues are not documented Disease [facility] Physician [facility] Work Phone: Mental Status Date Assessment Result Facility NEGATED: Highlighted row Cognitive function [Interpretation] Cognitive status health issues are not documented Disease [facility] Work Phone: Clinical Notes [...] Hydrocephalus, adult (CMS/HCC) (HCC) Kidney stone Neuropathy IMMUNOLOGIST (ventriculoperitoneal) shunt status Past Surgical History: Procedure [...] 09/13/23 12:05 PM documented in this encounter [facility] 08-31-2023 Note S: Shanthi from [facility] spoke with [facility] nurse regarding voiding trial procedure. B: Onset [...] Protocols used: Information Only Call - No [facility] Telephone encounter Note S: Shanthi from [facility] spoke with [facility] nurse regarding voiding trial procedure. B: Onset [...] Protocols used: Information Only Call - No Kqwsmk-ZLNAI-YB [facility] 08-31-2023 Miscellaneous Notes S: Shanthi from [facility] [place] spoke with [facility] nurse regarding voiding trial procedure. B: Onset [...] Protocols used: Information Only Call - No Hxxnnf-MYLDO-WT documented in this encounter [facility] 08-29-2023 Telephone encounter Note Chidi on daughters vm to advise them to call the number for the event services manager to get clarification, and to call back with further questions [facility] 08-29-2023 Miscellaneous Notes Chidi on daughters vm to advise them to call the number for the event services manager to get clarification, and to call back with further questions Yes, they will need to call the number given to them. Please advise Name of caller: Shanthi Contact phone number: [phone] Relationship to Patient: patient Provider: MD Quinn Practice: [facility] Urology Chief Complaint/Reason for Call: Shanthi called in to see if Pt would need to come by cot for his CT appt due to Pt being Boaz. TEA did reach out to office and was advised to reach out to Central Scheduling. CAC did reach out to and was advised to let [facility] know that she would need to reach out to call Maury Cedeño Black Top Raker at [facility] [phone] to get clarifications. CAC did reach back out to [facility] and advised and provider Maury's #. Please advise Best time of day caller can be reached: Any Patient advised that office/PCP has 24-48 business hours to return their call: N/A documented in this encounter [facility] 08-27-2023 Telephone encounter Note Yes, they will need to call the number given to them. [facility] 08-27-2023 Telephone encounter Note Please advise [facility] 08-21-2023 Telephone encounter Note Name of caller: Shanthi Contact phone number: [phone] Relationship to Patient: patient Provider: MD Quinn Practice: [facility] Urology Chief Complaint/Reason for Call: Shanthi called in to see if Pt would need to come by cot for his CT appt due to Pt being Boaz. TEA did reach out to office and was advised to reach out to Central Scheduling. TEA did reach out to and was advised to let [facility] know that she would need to reach out to call Maury Cedeño Black Top Raker at [facility] [phone] to get clarifications. CAC did reach back out to [facility] and advised and provider Maury's #. Please advise Best time of day caller can be reached: Any Patient advised that office/PCP has 24-48 business hours to return their call: N/A [facility] 08-13-2023 History of Present illness Narrative Images [...] Hydrocephalus, adult (CMS/HCC) (HCC) Kidney stone Neuropathy IMMUNOLOGIST (ventriculoperitoneal) shunt status Past Surgical History: Past [...] 08/13/23 10:45 AM documented in this encounter [facility] 06-25-2023 Telephone encounter Note [facility] called in stating appt scheduled 07/10/23 [place] has to be made further out, pt being transported by cot. Changed appt to 08/13/23 per [facility] only avail time for transport, first avail with DR Buck at 10:00 AM. [facility] 06-25-2023 Miscellaneous Notes [facility] called in stating appt scheduled 07/10/23 [place] has to be made further out, pt being transported by cot. Changed appt to 08/13/23 per [facility] only avail time for transport, first avail with DR Buck at 10:00 AM. documented in this encounter [facility] 12-22-2021 Hospital Discharge instructions SANIA Lou - 12/22/2021 2:32 AM EDT Please take medication as prescribed Please follow up with your Physicians as instructed in this discharge paperwork Thank you for choosing [facility] I appreciate your patience Please return to the emergency department if your symptoms worsen, or new symptoms develop as discussed documented in this encounter [facility] Work Phone: 10-29-2021 Note Hospitalist Discharg [...] abnormality and previous indwelling tubing history of IMMUNOLOGIST shunt ? #?Bilateral lower extremity wounds-wound care [...] neurologist. Patient will be transferred to the long-term and his Coumadin was continued, dosing instructions were given. Wound care was given for his lower extremity wounds. Consults: neurology, vascular surgery, gastroenterology Discharge Instructions: Diet: No diet orders on file Activity: as tolerated Disposition: Patient discharged in stable condition to long-term . Greater than 30 minutes spent discharging [...] Take 100 mg by mouth daily Handicap Melbaard Misc by Does not apply route Duration: [...] Your Medications These medications were sent to [facility] [address] [facility] - P [phone] - F [phone] [address] [facility] [address] ? levETIRAcetam 750 MG tablet ? warfarin 6 MG tablet Recommended Follow-up: No follow-up provider specified. Complexity of Follow up: [] Moderate Complexity: follow up within 7-14 calendar days (98074) [x] Severe Complexity: follow up within 7 calendar days (71695) Follow up Testing, Pending results or Referrals [...] Increased fatigue or (more content not included)... [facility] 10-29-2021 Hospital Discharge instructions Fabi Subramanian RN - 10/29/2021 12:03 PM EDT Continuity of Care Form Patient Name: Andrew Sifuentes : 1950 Admit date: 10/21/2021 Discharge date: 10/29/2021 Code Status Order: Full Code Advance Directives: Admitting Physician: May Cash MD PCP: MONIKA STALEY MD Discharging Nurse: Fabi Dischcheng Hospital Unit/Room#: 146/1461 Discharging Unit Emergency Contact: Extended Emergency Contact Information Primary Emergency Contact: Triny Damon Address: [address] [place] [address] [place] [address] [facility] Relation: Brother/Sister Secondary Emergency Contact: Melissa Sifuentes Mobile Relation: Child Preferred language: Nepalese Past Surgical History: Past Surgical History: Procedure Laterality Date BRAIN SURGERY CHOLECYSTECTOMY COLONOSCOPY HERNIA REPAIR Immunization History: Immunization History Administered Date(s) Administered Influenza Virus Vaccine 02/08/2015 Influenza, High Dose (Fluzone 65 yrs and older) 01/25/2018, 03/04/2019 Influenza, Quadv, IM, (6 mo and older Fluzone, Flulaval, Fluarix and 3 yrs and older Afluria) 02/24/2016, 02/14/2017 Pneumococcal Conjugate 13-valent ([id number]) 09/22/2016 Pneumococcal Conjugate Vaccine 02/04/2013 Pneumococcal Polysaccharide ([id number]) 12/03/2018 Tdap (Boostrix, Adacel) 09/22/2016 Active Problems: Patient Active Problem List Diagnosis Code Flank pain, acute R10.9 Night muscle spasms M62.838 Chronic fatigue R53.82 Hydrocephalus ([facility]) G91.9 Neuropathy G62.9 Erectile dysfunction N52.9 Fluid retention in tissues R60.9 Hyperlipidemia E78.5 Morbidly obese ([facility]) E66.01 Leg wound, left S81.802A DVT, lower extremity, recurrent, unspecified laterality ([facility]) I82.409 Moderate malnutrition ([facility]) E44.0 History of seizures Z87.898 Isolation/Infection: Isolation [...] Dependent Dressing Dependent Toileting Dependent Feeding Dependent Manager Of Learning Dependent Med Delivery whole in [facility] Wound Care Documentation and Therapy: Wound [...] Q4H prn SOB Oxygen Therapy: {Therapy; copd oxygen:14733} Ventilator: { CC Vent List:[id number]} Rehab Therapies: {THERAPEUTIC INTERVENTION:[id number]} Weight Bearing Status/Restrictions: Weight Bearing - Patient was bedbound in hospital Other Medical Equipment (for information only, NOT a DME order): wheelchair, hospital bed, and Boaz Other Treatments: Patient's personal belongings (please select all that are sent with patient): {CHP DME Belongings:[id number]} RN SIGNATURE: CASE MANAGEMENT/SOCIAL WORK SECTION Inpatient Status Date: Readmission Risk Assessment Score: Readmission Risk Risk of Unplanned Readmission: 11 Discharging to Facility/ Agency Name: Address: Phone: Fax: Dialysis Facility (if applicable) Name: Address: Dialysis Schedule: Phone: Fax: Crowning Inspector/Extension Edger signature: {Esignature:[id number]} PHYSICIAN SECTION Prognosis: Fair Condition at Discharge: Stable Rehab Potential (if transferring to Rehab): Fair Recommended Labs or Other Treatments After Discharge: Coumadin based on INR target range 2-3, Coumadin 6 mg on 10/30 and 10/31, recheck INR 11/01 and notify physician, ideally should be on 6 mg alt with 7 mg daily, PT/OT, follow-up with neurologist in 1 month, continue [facility] Physician Certification: I certify the above information and transfer of Andrew Sifuentes is necessary for the continuing treatment of the diagnosis listed and that he requires Long-Term Facility for greater than 30 days. Update Admission H&P: No change in H&P PHYSICIAN SIGNATURE: documented in this encounter [facility] Work Phone: 10-29-2021 History of Present illness Narrative [facility] Anticoagulation Management Service ([facility]) Inpatient Warfarin Consult HPI: Andrew Sifuentes is a 71 y.o. 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 Past Medical History: Diagnosis Date ED (erectile dysfunction) Hemorrhoids Hydrocephalus, adult (HCC) Kidney stone Neuropathy IMMUNOLOGIST (ventriculoperitoneal) shunt status Patient is newly referred to the [facility] clinic for warfarin management. Pt [...] daily. 4. Will provide warfarin education including [facility] warfarin booklet, if appropriate. Vimal Oropeza RPH, PharmD IRVIN Consult Service is available daily [phone]. Please search for covering pharmacist name via [employer] or Groups --> Pharmacy --> Anti-Coagulation Consult Pharmacist (on 3rd page). If no response via [employer], please page [phone]. Patient seen and chart reviewed. Afebrile. Adequate oxygenation on room air. Baseline mentation. Exam stable X 5 systems. Hgb 11.0 WBC 10.0 K Platelets 344 K Creatinine 0.71 GFR > 90 cc/min. NSE 20.8 with hemolysis. PT 30.8 INR 3.1 Conversion to Warfarin has been completed. APS w/u pending. Discussed with patient's staff engineer. Will continue to monitor. Total visit time > 35 minutes. Neurology Attending Progress Note SUBJECTIVE: No issues overnight. Care discussed with nursing staff/patient's medical team MRI brain reported nothing acute. Assessment and Plan: 71 yr M with H obstructive hydrocephalus s/p IMMUNOLOGIST shunt in 1987, needing multiple revisions and [...] normal limits and both old and new IMMUNOLOGIST shunt tubing noted. At present patient is awake, follows commands, was able to tell his name, and that he was in hospital but not oriented to time. Per documentation patient had NCSE in May 2021, was on Vimpat, but it was discontinued as there was no evidence of recurrent seizures in july 2021 by Neurology at [facility], per daughter patient was on Dilantin for 31 yrs. Per daughter patient had seizures in the past and also felt he had staring episodes 10/26/2021 morning. Per daughter patient has been essentially bed bound in [place] since May 2021 but prior to that was independent Impressions: H/O hydrocephalus H/O seizure, H/O stroke Acute DVT H/O PE Plan: -MRI brain w/o contrast nothing acute -CT head done during this admission reported no hydrocephalus, ventricles within normal limits and both old and new IMMUNOLOGIST shunt tubing noted -EEG mild to moderate slow, no seizures reported -Labs reviewed -Hydrocephalus management per Neurosurgery. At present patient does not have hydrocephalus on CT head done this admission. No Neurosurgery services available as inpatient in [facility]. Patient can follow up with Neurosurgery as outpatient and if ends up needing inpatient neurosurgery requirement then may need to be transferred to [facility]. -No clear clinical signs of ventriculitis. Defer evaluation to primary medical team/ID as deemed necessary. -Discussed with daughter in detail on . She was concerned that patient has had h/o seizures, and he has been taken off seizure medication, per note documentation patient had NCSE in May 2021 when he was admitted to [facility]. Per daughter she would want patient to [...] is no in house Neurology coverage at [facility] over the weekend, primary hospitalist team to contact economics instructor Neurology at [facility] for any weekend neurological issues related to the patient and if need to discuss any neurological test results/findings. Other deal in house Neurology coverage will be available from Sunday at [facility] and please call economics instructor Neurology back on Sunday if need further assistance. This note has been generated using [employer] dictation software. It may contain incorrect words, punctuation's and spellings that were not noted in the review of the note prior to signing. This note has been generated using [employer] dictation software. It may contain incorrect words, [...] eGFR >90.0 >60 mL/min EGFR IF NonAfrican [place]er >90.0 >60 mL/min Calcium 9.1 8.4 - 10.4 mg/dL Albumin,Serum 3.7 3.5 - 5.0 g/dL Total Protein 7.1 6.3 - 8.2 g/dL Total Bilirubin 0.4 0.2 - 1.3 mg/dL Alkaline Phosphatase 103 38 - 126 U/L ALT 26 0 - 49 U/L AST 24 15 - 46 U/L Since admission: No results for input(s): CKTOTAL, TROPONINI in the last 72 hours. Recent Labs 10/28/21 0418 ALKPHOS 103 ALT 26 AST 24 BILITOT 0.4 LABALBU 3.7 @BRIEFLAB([facility]) ABGs: )No results for input(s): PH, PO2, [...] Result Date: 10/21/2021 [id number] Radiology ACCESSION EXAM DATE/TIME PROCEDURE ORDERING PROVIDER [id number] 10/21/2021 15:30 EDT CR Calcaneus 2+ Views [id number] -SHRUTHI MALIK Left CPT code 30282 Reason For Exam (CR Calcaneus 2+ Views [...] Result Date: 10/26/2021 [id number] Computed Tomography ACCESSION EXAM DATE/TIME PROCEDURE ORDERING PROVIDER [id number] 10/26/2021 11:[address] Head or Brain w/o JUNIE PINEDA, SARINA Contrast CPT code 32909 Reason For Exam (CT Head or Brain w/o Contrast) hydrocephalus. thank you Report CLINICAL INFORMATION: Hydrocephalus. Shunt. 3 mm axial cuts through the head are obtained without IV contrast. The examination is compared to a previous study dated 06/29/2014. FINDINGS: Old IMMUNOLOGIST shunt tubing is noted bilaterally. The new [...] are clear. IMPRESSION: 1. Old and new IMMUNOLOGIST shunt tubing. 2. No hydrocephalus. 3. Atrophy [...] Imaging ACCESSION EXAM DATE/TIME PROCEDURE ORDERING PROVIDER [id number] 10/23/2021 11:08 EDT MRI Abdomen w/o Contrast WING SRIVASTAVA CPT code 16778 Reason For Exam (MRI Abdomen w/o Contrast) [...] Medicine ACCESSION EXAM DATE/TIME PROCEDURE ORDERING PROVIDER [id number] 10/21/2021 07:55 EDT NM Pulmonary Perfusion [id number] MAY BOGGS w/ Vent Aerosol CPT code 23493 A9567 Reason For Exam (NM Pulmonary Perfusion [...] Indices Extremity Bilateral Result Date: 10/22/2021 [facility] --- Ankle Brachial Index Report Patient DO GurpreetB: 1950 Study 10/21/2021 Name: Andrew Gonzalez (71yrs) Date: Age: 71 Account: [id number] Gender: M Loc: 444W BP: Ordering Physician: Shruthi Malik Nutrition Professor: Rody Cross RDMS, T Interpreting Physician: Carina Call --- Location: [facility] --- Indications: Foot wounds. Originally ordered as a full PVR. Ordering CLINICAL OPERATIONS LEADER had to modify the order to ABIs [...] supine position. Images were obtained using a iYogis vascular ultrasound machine. --- Arterial pressure indices: [...] BILATERAL VENOUS DUPLEX Result Date: 10/21/2021 [facility] --- Lower Extremity Venous Duplex Report Patient DO GurpreetB: 1950 Study 10/21/2021 Name: Andrew Gonzalez (71yrs) Date: Age: 71 Account: [id number] Gender: M Loc: 444 BP: Ordering Physician: May Cash Nutrition Professor: Rody Cross RDMS, RVT Interpreting Physician: Carina Call --- Location: [facility] --- Indications: Bilateral lower leg edema. [...] supine position. Images were obtained using a iYogis vascular ultrasound machine. --- Venous flow and [...] Radiology ACCESSION EXAM DATE/TIME PROCEDURE ORDERING PROVIDER [id number] 10/21/2021 08:16 EDT CR Chest 1 View Frontal [id number] MAY BOGGS CPT code 10167 Reason For Exam (CR Chest 1 View [...] OSAMA Transcribed Date and Time: 10/21/2021 8:33 CT Abdomen Pelvis Wo Contrast Result Date: 10/22/2021 Patient Name: ANDREW SIFUENTES Computed Tomography ACCESSION EXAM DATE/TIME PROCEDURE ORDERING PROVIDER [id number] 10/22/2021 13:[address] Abdomen/Pelvis (No SRIVASTAVA, WING PO, No IV) CPT code 72793 Reason For Exam (CT Abdomen/Pelvis (No PO, [...] Imaging ACCESSION EXAM DATE/TIME PROCEDURE ORDERING PROVIDER [id number] 10/27/2021 13:14 EDT MRI Brain w/o Contrast UNASSIGNED, UNASSIGNED CPT code 11809 Reason For Exam (MRI Brain w/o Contrast) stroke Patient has IMMUNOLOGIST shunt in place, please follow Radiology protocol [...] RAMOS Transcribed Date and Time: 10/27/2021 2:39 All questions and concerns were addressed. Katherine Barreto MD Neurology, Vascular Neurology 10/28/2021 12:44 PM Consults Images from the original note were not included. Hospitalist Progress Note 10/28/2021 11:37 AM [phone]: Please page ct @ [phone] for patient care issues. [phone]: Please page manager spanish for any issues@ night Subjective: Admit Date: [...] 9.1 ANIONGAP 5 LIVER PROFILE: Recent Labs 10/28/21 0418 AST 24 ALT 26 BILITOT 0.4 ALKPHOS [...] abnormality and previous indwelling tubing history of IMMUNOLOGIST shunt # Bilateral lower extremity wounds-wound care [...] Services This report was created using the Shake Speaking voice-activated system. Despite prompt dictation and careful editorial review, there may be subtle contextual errors in this report, due to misrecognition of the spoken word. Speech Language Pathology Facility/Department: [facility] Dysphagia Treatment Note NAME: Andrew [...] and gloves were worn throughout this session. [facility] Anticoagulation Management Service ([facility]) Inpatient Warfarin Consult HPI: Andrew Sifuentes is a 71 y.o. 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 Past Medical History: Diagnosis Date ED (erectile dysfunction) Hemorrhoids Hydrocephalus, adult (HCC) Kidney stone Neuropathy IMMUNOLOGIST (ventriculoperitoneal) shunt status Patient is newly referred to the [facility] clinic for warfarin management. Pt [...] 11.0* HCT 33.4* PLT 344 Recent Labs 10/28/21 0418 INR 3.1* Date INR Dose 10/28 3.1 [...] SNF. 4. Will provide warfarin education including [facility] warfarin booklet, if appropriate. Brionna Le, PharmD candidate Josie Gupta RPh, PharmD [facility] Consult Service is available daily [phone]. Please search for covering pharmacist name via Explara or Groups --> Pharmacy --> Anti-Coagulation Consult Pharmacist (on 3rd page). If no response via LiquidTextServe, please page [phone]. Follow up b/l foot wounds. No new [...] yr M with PMH obstructive hydrocephalus s/p IMMUNOLOGIST shunt in 1987, needing multiple revisions and [...] normal limits and both old and new IMMUNOLOGIST shunt tubing noted. At present patient is awake, follows commands, was able to tell his name, and that he was in hospital but not oriented to time. Per documentation patient had NCSE in May 2021, was on Vimpat, but it was discontinued as there was no evidence of recurrent seizures in july 2021 by Neurology at [facility], per daughter patient was on Dilantin for 31 yrs. Per daughter patient had seizures in the past and also felt he had staring episodes 10/26/2021 morning. Per daughter patient has been essentially bed bound in [place] since May 2021 but prior to that was independent Impressions: H/O hydrocephalus H/O seizure, H/O stroke Acute DVT H/O PE Plan: -MRI brain w/o contrast. Per daughter she would like MRI brain done to evaluate for strokes -CT head done during this admission today reported no hydrocephalus, ventricles within normal limits and both old and new IMMUNOLOGIST shunt tubing noted -EEG mild to moderate slow, no seizures reported -Labs reviewed -Hydrocephalus management per Neurosurgery. At present patient does not have hydrocephalus on CT head done this admission. No Neurosurgery services available as inpatient in [facility]. Patient can follow up with Neurosurgery as outpatient and if ends up needing inpatient neurosurgery requirement then may need to be transferred to [facility]. -No clear clinical signs of ventriculitis. Defer evaluation to primary medical team/ID as deemed necessary. -Discussed with daughter in detail on . She was concerned that patient has had h/o seizures, and he has been taken off seizure medication, per note documentation patient had NCSE in May 2021 when he was admitted to [facility]. Per daughter she would want patient to [...] interim. This note has been generated using ProcessUnity dictation software. It may contain incorrect words, punctuation's and spellings that were not noted in the review of the note prior to signing. This note has been generated using ProcessUnity dictation software. It may contain incorrect words, [...] LABALBU, AMYLASE, LIPASE in the last 72 hours.@BRIEFLAB([facility]) ABGs: )No results for input(s): PH, PO2, [...] Result Date: 10/21/2021 [id number] Radiology ACCESSION EXAM DATE/TIME PROCEDURE ORDERING PROVIDER [id number] 10/21/2021 15:30 EDT CR Calcaneus 2+ Views [id number] -SHRUTHI MALIK Left CPT code 14387 Reason For Exam (CR Calcaneus 2+ Views [...] Tomography ACCESSION EXAM DATE/TIME PROCEDURE ORDERING PROVIDER [id number] 10/26/2021 11:[address] Head or Brain w/o JUNIE PINEDA, SARINA Contrast CPT code 09180 Reason For Exam (CT Head or Brain w/o Contrast) hydrocephalus. thank you Report CLINICAL INFORMATION: Hydrocephalus. Shunt. 3 mm axial cuts through the head are obtained without IV contrast. The examination is compared to a previous study dated 06/29/2014. FINDINGS: Old IMMUNOLOGIST shunt tubing is noted bilaterally. The new [...] are clear. IMPRESSION: 1. Old and new IMMUNOLOGIST shunt tubing. 2. No hydrocephalus. 3. Atrophy [...] Imaging ACCESSION EXAM DATE/TIME PROCEDURE ORDERING PROVIDER [id number] 10/23/2021 11:08 EDT MRI Abdomen w/o Contrast DONOVAN SRIVASTAVAW CPT code 87849 Reason For Exam (MRI Abdomen w/o Contrast) [...] Result Date: 10/21/2021 [id number] Medicine ACCESSION EXAM DATE/TIME PROCEDURE ORDERING PROVIDER [id number] 10/21/2021 07:55 EDT NM Pulmonary Perfusion [id number] -MAY CASH w/ Vent Aerosol CPT code 57646 A9567 Reason For Exam (NM Pulmonary Perfusion [...] Indices Extremity Bilateral Result Date: 10/22/2021 [facility] --- Ankle Brachial Index Report Patient Gurpreet : 1950 Study 10/21/2021 Name: Andrew Gonzalez (71yrs) Date: Age: 71 Account: [id number] Gender: M Loc: 444W BP: Ordering Physician: Shruthi Malik Nutrition Professor: Rody Cross RDMS, RVT Interpreting Physician: Carina Call --- Location: [facility] --- Indications: Foot wounds. Originally ordered as a full PVR. Ordering CLINICAL OPERATIONS LEADER had to modify the order to ABIs [...] supine position. Images were obtained using a iYogis vascular ultrasound machine. --- Arterial pressure indices: [...] BILATERAL VENOUS DUPLEX Result Date: 10/21/2021 [facility] --- Lower Extremity Venous Duplex Report Patient DO GurpreetB: 1950 Study 10/21/2021 Name: Andrew Hedrick71yrs) Date: Age: 71 Account: [id number] Gender: M Loc: 444 BP: Ordering Physician: May Cash Nutrition Professor: Rody Cross RDMS, RVT Interpreting Physician: Carina Call --- Location: [facility] --- Indications: Bilateral lower leg edema. [...] supine position. Images were obtained using a iYogis vascular ultrasound machine. --- Venous flow and [...] Radiology ACCESSION EXAM DATE/TIME PROCEDURE ORDERING PROVIDER [id number] 10/21/2021 08:16 EDT CR Chest 1 View Frontal [id number] FOSTER CPT code 11451 Reason For Exam (CR Chest 1 View [...] OSAMA Transcribed Date and Time: 10/21/2021 8:33 CT Abdomen Pelvis Wo Contrast Result Date: 10/22/2021 [id number] Computed Tomography ACCESSION EXAM DATE/TIME PROCEDURE ORDERING PROVIDER [id number] 10/22/2021 13:[address] Abdomen/Pelvis (No SRIVASTAVA, WING PO, No IV) CPT code 30130 Reason For Exam (CT Abdomen/Pelvis (No PO, [...] 12:48 PM Consults Speech Language Pathology Facility/Department: [facility] Dysphagia Treatment Note NAME: Andrew [...] reactivity and state change, indicative of a [id number] diffuse encephalopathy of nonspecific etiology. There are [...] Easy to chew diet/cut up. NEVILLE Jones M.A.CCC/CHAINSTITCH ZIPPER SETTER Time session ended: 1156 Total session minutes: 23 Images from the original note were not included. Hospitalist Progress Note 10/27/2021 10:40 AM [phone]: Please page me @ [phone] for patient care issues. [phone]: Please page manager spanish for any issues@ night Subjective: Admit Date: [...] Services This report was created using the Shake Speaking voice-activated system. Despite prompt dictation and careful editorial review, there may be subtle contextual errors in this report, due to misrecognition of the spoken word. [facility] Anticoagulation Management Service ([facility]) Inpatient Warfarin Consult HPI: Andrew Sifuentes is a 71 y.o. 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 Past Medical History: Diagnosis Date ED (erectile dysfunction) Hemorrhoids Hydrocephalus, adult (HCC) Kidney stone Neuropathy IMMUNOLOGIST (ventriculoperitoneal) shunt status Patient is newly referred to the [facility] clinic for warfarin management. Pt [...] SNF. 4. Will provide warfarin education including [facility] warfarin booklet, if appropriate. Thank you for this consult Brionna Le, PharmD candidate Josie Gupta [facility], PharmD [facility] Consult Service is available daily [phone]. Please search for covering pharmacist name via Explara or Groups --> Pharmacy --> Anti-Coagulation Consult Pharmacist (on 3rd page). If no response via LiquidTextServe, please page [phone]. I cleaned under patient's finger nails with [...] status with Warfarin. Discussed with patient's staff engineer. Will continue to monitor. Total visit time [...] if concern Hydrocephalus Chronic WOODARD's - Revised IMMUNOLOGIST shunt - daughter requested that pt have CT / MRI of brain and neurology be consulted, this was done. - "Hydrocephalus management per Neurosurgery. At present patient does not have hydrocephalus on CT head done this morning. No Neurosurgery services available as inpatient in [facility]. Patient can follow up with Neurosurgery as outpatient and if ends up needing inpatient neurosurgery requirement then may need to be transferred to [facility]. " Seizure history, unspecified - daughter requested [...] get report from nursing. Continue wound care. [facility] Anticoagulation Management Service ([facility]) Inpatient Warfarin Consult HPI: Andrew Sifuentes is a 71 y.o. 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 Past Medical History: Diagnosis Date ED (erectile dysfunction) Hemorrhoids Hydrocephalus, adult (HCC) Kidney stone Neuropathy IMMUNOLOGIST (ventriculoperitoneal) shunt status Patient is newly referred to the [facility] clinic for warfarin management. Pt [...] PharmD [facility] Consult Service is available daily [phone]. Please search for covering pharmacist name via Explara or Groups --> Pharmacy --> Anti-Coagulation Consult Pharmacist (on 3rd page). If no response via Explara, please page [phone]. Moon daughter stated that any of patient's family can call and obtain an update on patient's status. Speech Language Pathology Facility/Department: [facility] CLINICAL BEDSIDE SWALLOW EVALUATION NAME: [...] a small bore straw. Additionally discussed with CHAINSTITCH ZIPPER SETTER, agreeable to assess tomorrow. Recent Chest Xray/CT [...] and liquids between bites. Treatment Plan Requires CHAINSTITCH ZIPPER SETTER Intervention: Yes Duration of Treatment: 2 weeks [...] Education Response: Verbalizes understanding;Needs reinforcement Therapy Time CHAINSTITCH ZIPPER SETTER Individual Minutes Time In: 826 Time Out: 852 Minutes: 26 NEVILLE Jones 10/26/2021 9:20 AM Comprehensive Nutrition Assessment Type and Reason for Visit: Initial (DT referral for wounds) Nutrition Recommendations/Plan: 1. Recommend to continue: Easy to Chew diet with Thin Liquids as currently ordered and safe for patient to participate in. Discussed with: RN, CLINICAL OPERATIONS LEADER, and CHAINSTITCH ZIPPER SETTER. CHAINSTITCH ZIPPER SETTER to assess tomorrow, best diet and liquid [...] Malnutrition Assessment: Malnutrition Status: Moderate malnutrition (10/25/21 5138) Context: Chronic Illness Findings of the 6 [...] & deltoids),Scapula (trapezius) Fluid Accumulation: Mild Extremities Vehicle Controls Engineer Strength: Not Performed Nutrition Assessment: 71 year [...] a small bore straw. Additionally discussed with CHAINSTITCH ZIPPER SETTER, agreeable to assess tomorrow. Nutrition Related Findings: [...] Anthropometric Measures: Height: 5' 7.01" (170.2 cm) [place] Body Weight (IBW): 148 lbs (67 kg) Admission Body Weight: 240 lb (108.9 kg) (stated 10/21/21) Current Body Weight: 205 lb 4 oz (93.1 kg) (10/25/21), 138.7 % IBW. Weight Source: Bed Scale Current BMI (kg/m2): 32.1 Usual Body Weight: 272 lb 11.3 oz (123.7 kg) (05/30/21 and 232.5# noted 08/14/21 at [facility] per EMR Review) % Weight Change (Calculated): -24.7 BMI Categories: Obese Class 1 (BMI 30.0-34.9) Estimated Daily Nutrient Needs: Energy Requirements Based On: Kcal/kg Weight Used for Energy Requirements: [place] (67.15 kg) Energy (kcal/day): 7352-4107 (27-32 kcal/kg IBW) --> increased need d/t wounds Weight Used for Protein Requirements: [place] (67.15 kg) Protein (g/day): 67-101 (1.0-1.5 g protein/kg IBW) Method Used for Fluid Requirements: Other (Comment) Fluid (ml/day): 7030-8354 mL daily or per MD Nutrition Diagnosis: [...] Plan of Care discussed with: Patient, RN, CLINICAL OPERATIONS LEADER Edwin Goals: Goals: other (specify) Specify Other Goals: [...] to determine Puja Almanza RD, LD Contact: [phone] Or Via Explara Hematology/Oncology Attending Progress Note SUBJECTIVE: Patient seen [...] IRON, TIBC, FERRITIN No results found for: [id number] No results found for: FOLATE PT 15.6 INR 1.5 CA 19 - 9 is 17 Protein S 138% Protein C 186% ASSESSMENT AND PLAN GI input appreciated. Patient continues with subtherapeutic INR. GI input appreciated. Discussed with patient's staff engineer. Will continue monitor. Total visit time > 35 minutes. [facility] Anticoagulation Management Service ([facility]) Inpatient Warfarin Consult HPI: Andrew Sifuentes is a 71 y.o. 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 Past Medical History: Diagnosis Date ED (erectile dysfunction) Hemorrhoids Hydrocephalus, adult (HCC) Kidney stone Neuropathy IMMUNOLOGIST (ventriculoperitoneal) shunt status Patient is newly referred to the [facility] clinic for warfarin management. Pt [...] SNF. 4. Will provide warfarin education including [facility] warfarin booklet, if appropriate. Thank you for this consult Brionna Le, PharmD candidate Josie Gupta RP, PharmD [facility] Consult Service is available daily [phone]. Please search for covering pharmacist name via Explara or Groups --> Pharmacy --> Anti-Coagulation Consult Pharmacist (on 3rd page). If no response via LiquidTextServe, please page [phone]. Progress Note 10/25/2021 9:36 AM Name: Andrew [...] if concern Hydrocephalus Chronic WOODARD's - Revised IMMUNOLOGIST shunt DC planning - 10/25/21: INR subtherapeutic, [...] if concern Hydrocephalus Chronic WOODARD's - Revised IMMUNOLOGIST shunt DC planning - Can be DC'd back to ECF once MRI done if no acute findings, MRI is done, defer to hem / onc on plan for that, awaiting chest PA with fluoro Patient seen and chart reviewed. Consult dictated. Will ask GI to assess concerning the etiology of liver lesions. Will continue to monitor. [facility] Anticoagulation Management Service ([facility]) Inpatient Warfarin Consult HPI: Andrew Sifuentes is a 71 y.o. 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 Past Medical History: Diagnosis Date ED (erectile dysfunction) Hemorrhoids Hydrocephalus, adult (HCC) Kidney stone Neuropathy IMMUNOLOGIST (ventriculoperitoneal) shunt status Patient is newly referred to the [facility] clinic for warfarin management. Pt [...] SNF. 4. Will provide warfarin education including [facility] warfarin booklet, if appropriate. Thank you for this consult Brionna Le, PharmD candidate Josie Gupta [facility], PharmD [facility] Consult Service is available daily [phone]. Please search for covering pharmacist name via Explara or Groups --> Pharmacy --> Anti-Coagulation Consult Pharmacist (on 3rd page). If no response via LiquidTextServe, please page [phone]. Follow up foot wounds Patient is more alert this morning. Waffle boots are on Ulcer left heel ulcer right foot Foot drop PE, chart reviewed. Patient relates that he does not walk at home. c ontinue wound care. Images from the original note were not included. Hospitalist Progress Note 10/23/2021 1:47 PM [phone]: Please page me ([phone]) or perfect serve me for patient care issues. [phone]: Please page [facility] night Hospitalist for any [...] if concern Hydrocephalus Chronic WOODARD's - Revised IMMUNOLOGIST shunt DC planning - Can be DC'd [...] Hemorrhoids Hydrocephalus, adult (HCC) Kidney stone Neuropathy IMMUNOLOGIST (ventriculoperitoneal) shunt status Medications: sodium chloride warfarin 7.5 mg Oral Once baclofen 10 mg Oral TID bumetanide 2 mg Oral Daily potassium chloride 20 mEq Oral Daily sodium chloride flush 5-40 mL IntraVENous 2 times per day enoxaparin 1 mg/kg SubCUTAneous BID LABS: CBC: Recent Labs 10/21/2120910/22/21 0404 10/23/21 0458 WBC 11.6* 9.4 10.3 [...] of Hospitalist Medicine Inpatient Medical Services PAGER: [phone] Nutrition rescreen completed. Pt referred to RD for foot ulcers. Occupational Therapy Facility/Department: [facility] Occupational Therapy Initial Assessment Name: Andrew Sifuentes : 1950 Date of Service: 10/23/2021 OT eval and treat orders received. Chart reviewed. Per notes pt from [facility], is Boaz lift at baseline, non-ambulatory, and requires assist for all ADLs. Will d/c OT orders. Elizabeth Gutierrez OT Physical Therapy Facility/Department: [address] Physical Therapy Initial Assessment Name: Andrew Sifuentes : 1950 Date of Service: 10/23/2021 PT eval and treat orders received. Chart reviewed. Per notes pt from [facility], is Boaz lift at baseline, non-ambulatory. Will d/c PT orders. Lloyd Silva PT [facility] Anticoagulation Management Service ([facility]) Inpatient Warfarin Consult HPI: Andrew Sifuentes is a 71 y.o. 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 Past Medical History: Diagnosis Date ED (erectile dysfunction) Hemorrhoids Hydrocephalus, adult (HCC) Kidney stone Neuropathy IMMUNOLOGIST (ventriculoperitoneal) shunt status Patient is newly referred to the [facility] clinic for warfarin management. Pt [...] 10/23/21 0458 INR 1.1 Date INR Dose 6/19 1.1 7.5 mg 10/22 1.1 5 mg [...] PharmD [facility] Consult Service is available daily [phone]. Please search for covering pharmacist name via Explara or Groups --> Pharmacy --> Anti-Coagulation Consult Pharmacist (on 3rd page). If no response via Explara, please page [phone]. Department of Podiatry Attending Consult Note Reason for Consult: Wound care Requesting Physician: MD Shailesh CHIEF COMPLAINT: Foot wounds HISTORY OF PRESENT ILLNESS: The patient is a 71 y.o. male with b/l foot wounds. Patient is awake , but not answering questions. Past Medical History: Diagnosis Date ED (erectile dysfunction) Hemorrhoids Hydrocephalus, adult (HCC) Kidney stone Neuropathy IMMUNOLOGIST (ventriculoperitoneal) shunt status Past Surgical History: Procedure [...] OT consulted. Will follow . Thank you. [facility] Res[facility] Care Department Progress Note As part [...] included. Hospitalist Progress Note 10/22/2021 6:33 AM [phone]: Please page me ([phone]) or perfect serve me for patient care issues. [phone]: Please page [facility] night Hospitalist for any issues. Subjective: Admit [...] consider MRI if concern Hydrocephalus - Revised IMMUNOLOGIST shunt Interval History: No overnight issues. Denies [...] no cyanosis or edema and unable to police justice BLE, this is old Musculoskeletal: Muscle loss [...] Hemorrhoids Hydrocephalus, adult (HCC) Kidney stone Neuropathy IMMUNOLOGIST (ventriculoperitoneal) shunt status Medications: sodium chloride baclofen 10 mg Oral TID bumetanide 2 mg Oral Daily potassium chloride 20 mEq Oral Daily sodium chloride flush 5-40 mL IntraVENous 2 times per day enoxaparin 1 mg/kg SubCUTAneous BID ipratropium-albuterol 1 ampule Inhalation Q4H MI LABS: CBC: Recent Labs 10/21/21 0210 10/22/21 [...] 72 hours. PT/INR: Recent Labs 10/21/21 0210 PROTIME 11.5 INR 1.1 CARDIAC ENZYMES: No [...] lymphadenopathy or inflammatory process. Report Dictated on VL Ankle brachial index: 10/22/21 Conclusions 1. Right [...] changes also seen along the os trigonum. VL Lower extremity US: 10/21/21 Conclusions 1. Study [...] of Hospitalist Medicine Inpatient Medical Services PAGER: [phone] Images from the original note were not included. Hospitalist Progress Note 10/21/2021 5:31 PM [phone]: Please page me ([phone]) or perfect serve me for patient care issues. [phone]: Please page [facility] night Hospitalist for any issues. Subjective: Admit [...] Will need chronic OAC Hydrocephalus - Revised IMMUNOLOGIST shunt Interval History: No overnight issues. Denies [...] Hemorrhoids Hydrocephalus, adult (HCC) Kidney stone Neuropathy IMMUNOLOGIST (ventriculoperitoneal) shunt status Medications: sodium chloride baclofen [...] of Hospitalist Medicine Inpatient Medical Services PAGER: [phone] Family member Triny, sister to patient, called back to the hospital stating that she was returning a call from a provider. Her phone number is [phone] to speak with whomever was attempting to reach out to her. documented in this encounter [employer] Work Phone: 10-17-2021 Miscellaneous Notes Mr. Sifuentes missed his hospital stay follow-up appointment w. Dr. Lim today. Called to Reschedule. Could not get through. "Subscriber you have dialed not in service" - was the automated voice mail. Unable to leave . No other phone# available. Ramya Negro Power Plant Assistant [facility] documented in this encounter [facility] 08-19-2021 Note [facility] 08-19-2021 Note [facility] 08-18-2021 Note [facility] 08-18-2021 Note [facility] 08-17-2021 Note [facility] 08-17-2021 Note [facility] 08-16-2021 Note [facility] 08-16-2021 Note HNO ID: [id number] Author: Katt Kelsey DO Service: Hospital Medicine Author Type: Physician Type: Plan of Care Filed: 08/16/2021 12:26 PM Note Text: Spoke with RN that line is a PICC. Katt Kelsey DO 08/16/2021 12:26 PM [facility] 08-16-2021 Note [facility] 08-16-2021 Note [facility] 08-15-2021 Note [facility] 08-15-2021 Note [facility] 08[facility]15-2021 Note [facility] 08-14-2021 Note [facility] 08-14-2021 Note [facility] 08-13-2021 Note [facility] 08-13-2021 Note [facility] 08-13-2021 Note [facility] 08-13-2021 Note HNO ID: [id number] Author: Interface Note Service: ? Author Type: ? Type: Progress Notes Filed: 08/13/2021 3:10 AM Note Text: Epic Scheduled Downtime: 08/13/2021 1:08:47 AM to 08/13/2021 2:53:47 AM [facility] 08-12-2021 Note [facility] 08-12-2021 Note [facility] 08-12-2021 Note [facility] 08-11-2021 Note [facility] 08[facility]11-2021 Note [facility] 08-11-2021 Note [facility] 08-11-2021 Note [facility] 08-11-2021 Note [facility] 08-11-2021 Note [facility] 08-10-2021 Note [facility] 08-10-2021 Note [facility] 08-10-2021 Note [facility] 08-10-2021 Note [facility] 08-09-2021 Note HNO ID: [id number] Author: Shannon Brooks RN Service: ? Author Type: Registered Nurse Type: Nursing Progress Note Filed: 08/09/2021 7:33 PM Note Text: Report called to unit [facility] 08-09-2021 Note [facility] 08-09-2021 Note [facility] 08-09-2021 Note [facility] 08-08-2021 Note [facility] 08-08-2021 Note [facility] 08-08-2021 [facility] 08-07-2021 [facility] 08-07-2021 [facility] 08-07-2021 Note [facility] 08[facility]07-2021 Note [facility] 08[facility]07-2021 Note [facility] 08-06-2021 [facility] 08[facility]06-2021 [facility] 08[facility]06-2021 [facility] 08-05-2021 [facility] 08[facility]05-2021 [facility] 08[facility]05-2021 [facility] 08-04-2021 [facility] 08-04-2021 [facility] 08[facility]04-2021 [facility] 08-03-2021 [facility] 08-03-2021 [facility] 08[facility]03-2021 [facility] 08-02-2021 [facility] 08-02-2021 [facility] 08[facility]02-2021 Note [facility] 08-01-2021 Note [facility] 08[facility]01-2021 Note [facility] 08-01-2021 Note [facility] 08-01-2021 Note [facility] 07-31-2021 [facility] 07-31-2021 [facility] 07-30-2021 Note [facility] 07-30-2021 [facility] 07[facility]30-2021 [facility] 07-29-2021 [facility] 07-29-2021 [facility] 07-29-2021 [facility] 07-28-2021 [facility] 07-28-2021 [facility] 07[facility]28-2021 [facility] 07-27-2021 [facility] 07-27-2021 [facility] 07[facility]27-2021 [facility] 07-26-2021 [facility] 07[facility]26-2021 [facility] 07-26-2021 [facility] 07-26-2021 [facility] 07-26-2021 [facility] 07-25-2021 [facility] 07[facility]25-2021 [facility] 07-25-2021 [facility] 07[facility]25-2021 [facility] 07-24-2021 [facility] 07-24-2021 [facility] 07-24-2021 Note [facility] 07-23-2021 [facility] 07[facility]23-2021 [facility] 07-23-2021 [facility] 07[facility]23-2021 [facility] 07-23-2021 [facility] 07-22-2021 Note [facility] 07[facility]22-2021 [facility] 07-22-2021 Note [facility] 07[facility]21-2021 Note [facility] 07-21-2021 Note [facility] 07-21-2021 Note [facility] 07-21-2021 History of [...] history of fever, elevated WBC, RP hematoma IMMUNOLOGIST shunt tip grew anaerobic gram positive cocci 06/08/2021 PLAN: IMMUNOLOGIST shunt tip sent to [facility] main, awaiting cx Continue Meropenem per [...] CTH showed improving Hydrocephalus - repeat CTH 2/ stable - 2/2 VA shunt removal and VPS shunt placed- EVD removed 06/10 PLAN: - following CSF studies; 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 for [employer] infection at this time - ID following- Continue antibiotics: Meropenem -CSF leak from EVD site, appreciate NSGY recs> stat repeat CTH on 06/07 d/t concern for CSF leak, cephalematoma, CTH unremarkable -Tolerating TF - SBT WTE - PICC line placed documented as of this encounter (statuses as of 10/17/2021) [facility]03-17-2022 [facility] Note [facility]03-16-2022 [facility] 07-19-2021 [facility]22 Note [facility]03-12-2022 [facility] 07-15-2021 [facility] Note [facility]03-09-2022 [facility] 07-12-2021 [facility] Note [facility]03-05-2022 [facility] 07-09-2021 [facility]22 NoteHNO ID: [id number] Author: Lizette Valderrama RN Service: Nursing Author Type: Registered Nurse Type: Nursing Progress Note Filed: 07/09/2021 1:41 AM Note Text: Report called to [facility]03-04-2022 NoteHNO ID: [id number] Author: Lizette Valderrama RN Service: Nursing Author Type: Registered Nurse Type: Nursing Progress Note Filed: 07/08/2021 8:57 PM Note Text: [address]49 back to PACU [address] [place], [place] [address]03-04-2022 NoteHNO ID: [id number] Author: Sukhi Chery APRN.CNP Service: ? Author Type: Nurse Practitioner Type: Progress Notes Filed: 07/09/2021 6:46 PM Note Text: Connected Care Unit Progress Note Patient Name: Andrew Sifuentes Patient Facility: [facility] Admit Date 06/28/2021 Level of Care: Skilled [...] Dept Phone 07/21/2021 11:00 AM NICOLE LIM [phone] HPI: (Per Dr. Beltran) Andrew Sifuentes is being seen today for care home facility (SNF) admission AND management of weakness, tube feed, infected retroperitoneal infection and seizure. ? This is a 71 year old male who presents from [facility] with primary admitting diagnosis of Seizure, enteral [...] CT brain concerning for hydrocephalus. Tip of IMMUNOLOGIST shunt was found to be in the [...] slow to respond. Ordered to transfer to [facility] ED for evaluation of neurological and [...] co (more content not included)... [facility]03-04-2022 [facility]2022 NoteHNO ID: [id number] Author: Sukhi Chery APRN.CNP Service: ? Author Type: Nurse Practitioner Type: Progress Notes Filed: 07/09/2021 6:20 PM Note Text: Connected Care Unit Progress Note Patient Name: Andrew Sifuentes Patient Facility: [facility] Admit Date 06/28/2021 Level of Care: Skilled [...] Dept Phone 07/21/2021 11:00 AM NICOLE LIM [phone] HPI: (Per Dr. Beltran) Andrew Sifuentes is being seen today for care home facility (SNF) admission AND management of weakness, tube feed, infected retroperitoneal infection and seizure. ? This is a 71 year old male who presents from [facility] with primary admitting diagnosis of Seizure, enteral [...] CT brain concerning for hydrocephalus. Tip of IMMUNOLOGIST shunt was found to be in the [...] is clear. (more content not included)...[facility]02-28-2022 NoteHNO ID: [id number] Author: Sukhi Chery APRN.VICTORIANO Service: ? Author Type: Nurse Practitioner Type: Progress Notes Filed: 07/09/2021 6:07 PM Note Text: Connected Care Unit Progress Note Patient Name: Andrew Sifuentes Patient Facility: [facility] Admit Date 06/28/2021 Level of Care: Skilled [...] but nursing notes it was drawn by transitional care liaison as vancomycin was being infused; reordered trough - PICC Line Intact - No fevers or chills per patient or staff (R53.81) Debility - Certify therapies - Maintain high falls risk precautions - pt/staff verbalize understanding validated via teach back - Monitor safety awareness Appointments for Next 60 Days Date Time Provider Location Dept Phone 07/21/2021 11:00 AM NICOLE LIM [phone] HPI: (Per Dr. Beltran) Andrew Sifuentes is being seen today for care home facility (SNF) admission AND management of weakness, tube feed, infected retroperitoneal infection and seizure. ? This is a 71 year old male who presents from [facility] with primary admitting diagnosis of Seizure, enteral [...] CT brain concerning for hydrocephalus. Tip of IMMUNOLOGIST shunt was found to be in the [...] to facility records. OBJECTIVE: Labs/diagnostics: 07/04/2021 Glucose=91 Uh=655 K=3.8 Ll=368 CO2=24 BUN=14 Creatinine=0.5 TFR=001 Ca=9.0 Protein,Total=6.7 Albumin=3.6 HllBrus=401 AST=15 ALT=21 Bilirubin,Totall=0.5 WBC=10.7 RBC=4.04 Hgb=10.9 Hct=35.3 Igcylxun=216 VancomycinTr (more content not included)...[facility]02-24-2022 NoteHNO ID: [id number] Author: Sukhi Chery APRN.VICTORIANO Service: ? Author Type: Nurse Practitioner Type: Progress Notes Filed: 07/09/2021 5:43 PM Note Text: Connected Care Unit Progress Note Patient Name: Andrew Sifuentes Patient Facility: [facility] Admit Date 06/28/2021 Level of Care: Skilled [...] Provider Location Dept Phone 07/21/2021 11:00 AM CHANDLERCELINALISSY STEPH LAWTON [phone] HPI: (Per Dr. Beltran) Andrew Sifuentes is being seen today for care home facility (SNF) admission AND management of weakness, tube feed, infected retroperitoneal infection and seizure. ? This is a 71 year old male who presents from [facility] with primary admitting diagnosis of Seizure, enteral [...] CT brain concerning for hydrocephalus. Tip of IMMUNOLOGIST shunt was found to be in the [...] to facility records. OBJECTIVE: Labs/diagnostics: 07/01/2021 Glucose=83 Go=739 K=4.1 Ll=777 CO2=27 BUN=22 Creatinine=0.6 GUN=950 Ca=8.7 WBC=10.8 RBC=3.40 Hgb=9.3 Hct=29.9 Lxykmmnu=613 Vital Signs: BP 128/80 Pulse 77 Temp 36.7 ?C (98 ?F) Resp 20 Ht 182.9 cm (6') Wt 113 kg (249 lb 3.2 oz) SpO2 96% BMI 33.80 kg/m? Physical Exam: Physical Exam Vitals reviewed. Constitutional: General: He is not in acute distress. (more content not included)...[facility]02-22-2022 [facility] Note [facility]02-20-2022 [facility] 06-26-2021 [facility]22 Note [facility]02-17-2022 [facility] 06-22-2021 NoteHNO ID: [id number] Author: Xiomy England RN Service: Nursing Author Type: Registered Nurse Type: Nursing Progress Note Filed: 06/22/2021 7:22 PM Note Text: RT contacted as pt has wheezing auscultated and same auditory. For prn Treatment.[facility]02-16-2022 [facility]16-[facility]22 Note [facility]02-15-2022 [facility] 06-21-2021 [facility] Note [facility]02-13-2022 [facility] 06-19-2021 [facility] Note [facility]02-12-2022 NoteHNO ID: [id number] Author: Interface Note Service: ? Author Type: ? Type: Progress Notes Filed: 06/18/2021 3:10 AM Note Text: Epic Scheduled Downtime: 06/18/2021 1:00:00 AM to 06/18/2021 2:27:[facility] Note [facility]02-11-2022 [facility] 06-17-2021 [facility]22 Note [facility]02-10-2022 [facility] 06-15-2021 [facility]2022 NoteHNO ID: [id number] Author: Lamonte Kline DO Service: Neurology ICU Author Type: Resident Type: Plan of Care Filed: 06/15/2021 6:21 PM Note Text: Patient's daughter Melissa updated on plan of care and critical condition, all questions answered.[facility]02-09-2022 [facility]09-[facility] Note [facility]02-09-2022 [facility] 06[facility]15-2021 [facility] Note [facility]02-07-20[facility]12[facility] Note [facility]02-04-2022 [facility]09[facility]2022 NoteHNO ID: [id number] Author: Luis Diaz RN Service: ? Author Type: Registered Nurse Type: Nursing Progress Note Filed: 06/08/2021 9:23 AM Note Text: Patient off the floor to OR at this time.[facility]02-02-2022 [facility]-02-20[facility] 06-08-2021 NoteHNO ID: [id number] Author: Eloise Samuel RN Service: ? Author Type: Registered Nurse Type: Nursing Progress Note Filed: 06/08/2021 12:46 AM Note Text: Dr. Brito notified of changes throughout shift. No new [facility] 06-07-2021 NoteHNO ID: [id number] Author: Eloise Samuel RN Service: ? Author Type: Registered Nurse Type: Nursing Progress Note Filed: 06/07/2021 8:01 PM Note Text: Neuro surg ASSOCIATE PROFESSOR OF PHILOSOPHY notified of downward deviation of pupils. No new orders at this time.[facility]02-01-2022 [facility]-01-20[facility] Note [facility]01-31-2022 [facility] 06-05-2021 [facility]22 NoteHNO ID: [id number] Author: Jermaine Miller PA-C Service: Neurosurgery Author Type: Physician Sand Caster Type: Plan of Care Filed: 06/04/2021 1:59 PM Note Text: Discussed with Dr. Charles CT brain results. At this time, continue with EVD at [address] [place], [place] [address]01-29-2022 [facility] 06-04-2021 [facility]22 NoteHNO ID: [id number] Author: Mauricio Frank DO Service: Neurology ICU Author Type: Physician Type: Plan of Care Filed: 06/03/2021 2:38 PM Note Text: I spoke with Melissa and updated her over the phone. Mauricio Frank, [facility]01-28-2022 [facility]28-[facility]27[facility]22 Note [facility]01-26-2022 [facility] 06-01-2021 [facility]26[facility]25[facility]20[facility] Note [facility]01-25-2022 [facility]31-[facility] Diagnosis Leg swelling- Primary Swelling of limb Acute deep vein thrombosis (DVT) of proximal vein of lower extremity, unspecified laterality (HCC) DVT, lower extremity, recurrent, unspecified laterality (HCC) Moderate malnutrition (HCC) Malnutrition of moderate degree History of seizures Personal history of other disorders of nervous system and sense organs documented in this encounter [facility] Work Phone: Evaluation noteNo assessment information available [facility] Work Phone: Evaluation note* Diagnosis Other fatigue- Primary [facility] Work Phone: Evaluation note* Diagnosis Heel ulceration, left, with unspecified severity (HCC)- Primary documented in this encounter [facility] Work Phone: Evaluation note* Diagnosis Fall, initial encounter- Primary Anticoagulated Encounter for long-term (current) use of 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 documented in this encounter [facility] Work Phone: Evaluation note* Diagnosis Left flank pain- Primary Abdominal pain, unspecified site Calculus of ureter Disease of prostate Unspecified disorder of prostate BPH with urinary obstruction Hypertrophy of prostate with urinary obstruction and other lower urinary tract symptoms (LUTS) documented in this encounter [facility] HealthEvaluation note* Diagnosis Left flank pain Abdominal pain, unspecified site Calculus of ureter documented in this encounter [facility] SecurityEvaluation note* Diagnosis Left flank pain- Primary Abdominal pain, unspecified site BPH with urinary obstruction Hypertrophy of prostate with urinary obstruction and other lower urinary tract symptoms (LUTS) History of kidney stones documented in this encounter [facility] HealthInstructions* Name Dates Details Instructions not documented [id number] Work Phone: Instructions* Name Dates Details Instructions not documented [facility] [address] [place] Work Phone: Reason for referral (narrative)No reason for referral information availableWFostoria City Hospital Work Phone: Advance Directives No Advanced Directives Records FoundDocuments on File Type Date Recorded Patient Disability Counselor Expl anation Advance Directives and Living Will Power of Field Education Coordinator Documents on File Type Date Recorded Patient Disability Counselor Expl anation Advance Directive(s) 06/02/2021 2:45 PM [...] Maker Relationship: 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 Adult Children (associate sales representative) Documents on File Type Date Recorded Patient Disability Counselor Expl anation ACP-Advance Directive ACP-Power of Field Education Coordinator Latest Code Status on File Code Status Date Activated Date Inactivated Comments Full Code 10/21/2021 4:09 AM Healthcare Agents on File Name Relationship Healthcare Agent Relationshi p Communication Melissa Gurpreet Child Primary Decision Maker deann Gurpreet Child Secondary Decision Maker Documents on File Type Date Recorded Patient Disability Counselor Expl anation ACP-Advance Directive ACP-Power of Field Education Coordinator ACP-Do Not Resuscitate 11/01/2021 7:03 AM Latest Code Status on File Code Status Date Activated Date Inactivated Comments Full Code 10/21/2021 4:09 AM 10/29/2021 7:25 PM Healthcare Agents on File Name Relationship Healthcare Agent Relationshi p Communication Melissa Gurpreet Child Primary Decision Maker deann Gurpreet Child Secondary Decision Maker Documents on File Type Date Recorded Patient Disability Counselor Expl anation ACP-Do Not Resuscitate 11/03/2021 10:15 AM ACP-Do Not Resuscitate 11/01/2021 7:03 AM Healthcare Agents on File Name Relationship Healthcare Agent Relationshi p Communication Melissa Gurpreet Child Primary Decision Maker deann Gurpreet Child Secondary Decision Maker Documents on File Type Date Recorded Patient Disability Counselor Expl anation ACP-Do Not Resuscitate 11/03/2021 10:15 [...] Documents on File Type Date Recorded Patient Disability Counselor Expl anation DNR (Do Not Resuscitate) 10/31/2021 DNR (Do Not Resuscitate) 10/21/2021 Documents on File Type Date Recorded Patient Disability Counselor Expl anation DNR (Do Not Resuscitate) 10/31/2021 [...] WORK LABWORK Chief Complaint LAB WORK LABWORK SHELTER LAB WORK SHELTER LABWORK Chief Complaint LAB WORK LABWORK SHELTER LAB WORK SHELTER LABWORK LABWORK LABWORK SHELTER LAB WORK SHELTER LABWORK SHELTER LAB WORK LABWORK SHELTER LAB WORK LABWORK SHELTER LABWORK Chief Complaint LAB WORK LABWORK SHELTER LAB WORK SHELTER LABWORK LABWORK LABWORK SHELTER LAB WORK SHELTER LABWORK SHELTER LAB WORK LABWORK SHELTER LAB WORK LABWORK SHELTER LABWORK SHELTER LABWORK LABWORK Chief Complaint LAB WORK LABWORK SHELTER LAB WORK SHELTER LABWORK LABWORK LABWORK SHELTER LAB WORK SHELTER LABWORK SHELTER LAB WORK LABWORK SHELTER LAB WORK LABWORK SHELTER LABWORK SHELTER LABWORK LABWORK SHELTER LAB WORK Chief Complaint LABWORK SHELTER LAB WORK SHELTER LABWORK LABWORK LABWORK SHELTER LAB WORK SHELTER LABWORK SHELTER LAB WORK LABWORK SHELTER LAB WORK LABWORK SHELTER LABWORK SHELTER LABWORK LABWORK LABWORK SHELTER LAB WORK Chief Complaint LABWORK SHELTER LAB WORK SHELTER LABWORK LABWORK LABWORK SHELTER LAB WORK SHELTER LABWORK SHELTER LAB WORK LABWORK SHELTER LAB WORK LABWORK SHELTER LABWORK SHELTER LABWORK LABWORK LABWORK SHELTER LAB WORK LABWORK SHELTER LABWORK SHELTER LAB WORK SHELTER LABWORK Chief Complaint SHELTER LAB WOR K SHELTER LABWORK LABWORK LABWORK SHELTER LAB WORK SHELTER LABWORK SHELTER LAB WORK LABWORK SHELTER LAB WORK LABWORK SHELTER LABWORK SHELTER LABWORK LABWORK LABWORK SHELTER LAB WORK LABWORK SHELTER LABWORK SHELTER LAB WORK SHELTER LABWORK SHELTER LAB WORK Chief Complaint SHELTER LABWORK LABWORK LABWORK SHELTER LAB WORK SHELTER LABWORK SHELTER LAB WORK LABWORK SHELTER LAB WORK LABWORK SHELTER LABWORK SHELTER LABWORK LABWORK LABWORK SHELTER LAB WORK LABWORK SHELTER LABWORK SHELTER LAB WORK SHELTER LABWORK LABWORK SHELTER LAB WORK Chief Complaint SHELTER LAB WOR K SHELTER LABWORK SHELTER LAB WORK LABWORK SHELTER LAB WORK LABWORK SHELTER LABWORK SHELTER LABWORK LABWORK LABWORK SHELTER LAB WORK LABWORK SHELTER LABWORK SHELTER LAB WORK SHELTER LABWORK LABWORK LABWORK SHELTER LAB WORK SHELTER PATIENT SHELTER LABWORK SHELTER LABWORK Chief Complaint LABWORK SHELTER LAB WORK LABWORK SHELTER LABWORK SHELTER LABWORK LABWORK LABWORK SHELTER LAB WORK LABWORK SHELTER LABWORK SHELTER LAB WORK SHELTER LABWORK LABWORK LABWORK SHELTER LAB WORK SHELTER PATIENT SHELTER LABWORK SHELTER LABWORK SHELTER LAB WORK Chief Complaint LABWORK SHELTER LABWORK SHELTER LABWORK LABWORK LABWORK SHELTER LAB WORK LABWORK SHELTER LABWORK SHELTER LAB WORK SHELTER LABWORK LABWORK LABWORK SHELTER LAB WORK SHELTER PATIENT SHELTER LABWORK SHELTER LABWORK SHELTER LAB WORK SHELTER LAB WORK SHELTER LAB WORK Chief Complaint LABWORK LABWORK SHELTER LAB WORK SHELTER PATIENT SHELTER LABWORK SHELTER LABWORK SHELTER LAB WORK SHELTER LAB WORK SHELTER LAB WORK SHELTER LABWORK SHELTER LABWORK LABWORK SHELTER LAB WORK LABWORK Chief Complaint SHELTER LAB WOR K SHELTER PATIENT SHELTER LABWORK SHELTER LABWORK SHELTER LAB WORK SHELTER LAB WORK SHELTER LAB WORK SHELTER LABWORK SHELTER LABWORK LABWORK SHELTER LAB WORK LABWORK SHELTER LABWORK Chief Complaint SHELTER PATIENT SHELTER LABWORK SHELTER LABWORK SHELTER LAB WORK SHELTER LAB WORK SHELTER LAB WORK SHELTER LABWORK SHELTER LABWORK LABWORK 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 LAB 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 LABWORK SHELTER LABWORK 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 LABWORK Chief Complaint SHELTER LABWORK SHELTER LAB WORK SHELTER LAB WORK SHELTER LAB WORK SHELTER LABWORK SHELTER LABWORK LABWORK SHELTER LAB WORK LABWORK SHELTER LABWORK SHELTER LABWORK SHELTER LABWORK Chief Complaint SHELTER LABWORK SHELTER LAB WORK SHELTER LAB WORK SHELTER LAB WORK SHELTER LABWORK SHELTER LABWORK LABWORK SHELTER LAB WORK LABWORK SHELTER LABWORK SHELTER LABWORK SHELTER LABWORK SHELTER LABWORK Chief Complaint SHELTER LABWORK LABWORK SHELTER LAB WORK LABWORK SHELTER LABWORK SHELTER LABWORK SHELTER LABWORK SHELTER LABWORK SHELTER LABWORK LABWORK SHELTER LABWORK Chief Complaint LABWORK SHELTER LAB WORK LABWORK SHELTER LABWORK SHELTER LABWORK SHELTER LABWORK SHELTER LABWORK SHELTER LABWORK LABWORK LABWORK SHELTER LABWORK SHELTER LAB WORK SHELTER LABWORK SHELTER LAB WORK Chief Complaint LABWORK SHELTER LAB WORK LABWORK SHELTER LABWORK SHELTER LABWORK SHELTER LABWORK SHELTER LABWORK SHELTER LABWORK LABWORK LABWORK SHELTER LABWORK SHELTER LAB WORK SHELTER LABWORK SHELTER LAB WORK SHELTER LABWORK Chief Complaint LABWORK SHELTER LAB WORK LABWORK SHELTER LABWORK [facility]WORK [facility] LABWORK LABWORK [facility]WORK [facility] WORK [facility]WORK [facility] WORK [facility]WORK LABWORK Chief Complaint SHELTER LABWORK SHELTER LABWORK SHELTER LABWORK SHELTER LABWORK SHELTER LABWORK LABWORK LABWORK SHELTER LABWORK SHELTER LAB WORK SHELTER LABWORK SHELTER LAB WORK SHELTER LABWORK LABWORK SHELTER LABWORK Chief Complaint SHELTER LABWORK SHELTER LABWORK SHELTER LABWORK SHELTER LABWORK SHELTER LABWORK LABWORK LABWORK SHELTER LABWORK SHELTER LAB WORK SHELTER LABWORK SHELTER LAB WORK SHELTER LABWORK LABWORK SHELTER LABWORK LABWORK Chief Complaint SHELTER LABWORK LABWORK LABWORK SHELTER LABWORK SHELTER LAB WORK SHELTER LABWORK SHELTER LAB WORK SHELTER LABWORK LABWORK SHELTER LABWORK LABWORK SHELTER LAB WORK SHELTER LAB WORK SHELTER LABWORK Chief Complaint LABWORK SHELTER LABWORK LABWORK SHELTER LAB WORK SHELTER LAB WORK SHELTER LABWORK SHELTER LABWORK SHELTER LAB WORK SHELTER LAB WORK SHELTER LAB WORK LABWORK SHELTER LABWORK Chief Complaint SHELTER LAB WOR K SHELTER LAB WORK SHELTER LABWORK SHELTER LABWORK SHELTER LAB WORK SHELTER LAB WORK SHELTER LAB WORK LABWORK SHELTER LABWORK LABWORK SHELTER LAB WORK SHELTER LAB WORK Chief Complaint SHELTER LAB WOR K SHELTER LABWORK SHELTER LABWORK SHELTER LAB WORK SHELTER LAB WORK SHELTER LAB WORK LABWORK SHELTER LABWORK LABWORK SHELTER LAB WORK SHELTER LAB WORK Chief Complaint SHELTER LABWORK SHELTER LABWORK SHELTER LAB WORK SHELTER LAB WORK SHELTER LAB WORK LABWORK SHELTER LABWORK LABWORK SHELTER LAB WORK SHELTER LAB WORK SHELTER LABWORK LABWORK LABWORK Chief Complaint SHELTER LAB WOR K SHELTER LAB WORK SHELTER LAB WORK LABWORK SHELTER LABWORK LABWORK SHELTER LAB WORK SHELTER LAB WORK SHELTER LABWORK LABWORK LABWORK LABWORK LABWORK LABWORK Chief Complaint SHELTER LAB WOR K LABWORK SHELTER LABWORK LABWORK SHELTER LAB WORK SHELTER LAB WORK SHELTER LABWORK LABWORK LABWORK LABWORK LABWORK SHELTER LABWORK SHELTER LAB WORK LABWORK SHELTER LAB WORK SHELTER LAB WORK Chief Complaint SHELTER LAB WOR K LABWORK SHELTER LABWORK LABWORK SHELTER LAB WORK SHELTER LAB WORK SHELTER LABWORK LABWORK LABWORK LABWORK LABWORK SHELTER LABWORK SHELTER LAB WORK LABWORK SHELTER LAB WORK SHELTER LAB WORK SHELTER LABWORK Chief Complaint SHELTER LAB WOR K SHELTER LAB WORK SHELTER LABWORK LABWORK LABWORK LABWORK LABWORK SHELTER LABWORK SHELTER LAB WORK LABWORK SHELTER LAB WORK SHELTER LAB WORK SHELTER LABWORK NUSING HOME LAB WORK Chief Complaint SHELTER LAB WOR K SHELTER LABWORK LABWORK LABWORK LABWORK LABWORK SHELTER LABWORK SHELTER LAB WORK LABWORK SHELTER LAB WORK SHELTER LAB WORK SHELTER LABWORK NUSING HOME LAB WORK LABWORK Chief Complaint SHELTER LAB WOR K SHELTER LABWORK LABWORK LABWORK LABWORK LABWORK SHELTER LABWORK SHELTER LAB WORK LABWORK SHELTER LAB WORK SHELTER LAB WORK SHELTER LABWORK NUSING HOME LAB WORK SHELTER LABWORK LABWORK Chief Complaint LABWORK SHELTER LAB WORK SHELTER LAB WORK SHELTER LABWORK NUSING HOME LAB WORK SHELTER LABWORK LABWORK SHELTER LABWORK SHELTER LAB WORK LABWORK LABWORK Chief Complaint NUSING HOME LAB WORK SHELTER LABWORK LABWORK SHELTER LABWORK SHELTER LAB WORK LABWORK SHELTER LAB WORK LABWORK LABWORK Chief Complaint NUSING HOME LAB WORK SHELTER LABWORK LABWORK SHELTER LABWORK SHELTER LAB WORK LABWORK SHELTER LAB WORK LABWORK SHELTER LAB WORK LABWORK Chief Complaint SHELTER LABWORK LABWORK SHELTER LABWORK SHELTER LAB WORK LABWORK SHELTER LAB WORK LABWORK SHELTER LAB WORK LABWORK LABWORK Chief Complaint SHELTER LABWORK LABWORK SHELTER LABWORK SHELTER LAB WORK LABWORK SHELTER LAB WORK LABWORK SHELTER LAB WORK LABWORK LABWORK LABWORK Chief Complaint SHELTER LABWORK LABWORK SHELTER LABWORK SHELTER LAB WORK LABWORK SHELTER LAB WORK LABWORK SHELTER LAB WORK LABWORK LABWORK LABWORK LABWORK Chief Complaint SHELTER LABWORK LABWORK SHELTER LABWORK SHELTER LAB WORK LABWORK SHELTER LAB WORK LABWORK SHELTER LAB WORK LABWORK LABWORK SHELTER LAB WORK LABWORK LABWORK LABWORK Chief Complaint LABWORK SHELTER LABWORK SHELTER LAB WORK LABWORK SHELTER LAB WORK LABWORK SHELTER LAB WORK LABWORK LABWORK SHELTER LAB WORK LABWORK LABWORK LABWORK LABWORK LABWORK LABWORK LABWORK Chief Complaint SHELTER LABWORK SHELTER LAB WORK LABWORK SHELTER LAB WORK LABWORK SHELTER LAB WORK LABWORK LABWORK SHELTER LAB WORK LABWORK LABWORK LABWORK LABWORK LABWORK LABWORK LABWORK LABWORK Chief Complaint LABWORK SHELTER LAB WORK LABWORK SHELTER LAB WORK LABWORK LABWORK SHELTER LAB WORK LABWORK LABWORK LABWORK LABWORK LABWORK LABWORK LABWORK LABWORK LABWORK Chief Complaint SHELTER LABWORK LABWORK LABWORK LABWORK LABWORK SHELTER LABWORK SHELTER LAB WORK LABWORK SHELTER LAB WORK SHELTER LAB WORK SHELTER LABWORK NUSING HOME LAB WORK SHELTER LABWORK LABWORK SHELTER LABWORK SHELTER LAB WORK Chief Complaint Admit Date SHELTER LAB WORK March 13, 2024 5:00am LABWORK March 14, 2024 5 :00am SHELTER LAB WORK March 17 4 5:00am SHELTER LAB WORK March 18 5:00am SHELTER LAB WORK March 19 4:00am SHELTER LAB WORK March 20 5:00am SHELTER LAB WORK March 24 5:00am SHELTER LAB WORK March 27 5:00am LABWORK March 31, 2024 5:00am SHELTER LAB WORK April 04 5:00am LABWORK April 07, 2024 5 :00am SHELTER LAB WORK April 10, 2024 5:00am SHELTER LAB WORK April 14, 2024 5:00am SHELTER LAB WORK April 17 5:00am LABWORK April 21, 2024 5:00am SHELTER LAB WORK April 24 4:00am LABWORK April 28, 2024 5:00am SHELTER LAB WORK May 01 4:00am SHELTER LAB WORK May 05 5:00am SHELTER LAB WORK May 08, 2024 5:00am SHELTER LAB WORK May 09, 2024 4:00am LABWORK May 12, 2024 5: 00am SHELTER LAB WORK May 15, 2024 5:00am SHELTER LAB WORK May 19, 2024 4:00am SHELTER LAB WORK May 20, 2024 5:00am SHELTER LAB WORK May 22, 2024 5:00am LABWORK May 26, 2024 5 :00am SHELTER LAB WORK May 29, 2024 5:00am SHELTER LAB WORK June 02, 2024 5:00am SHELTER LAB WORK June 05, 2024 5:00am LABWORK June 09, 2024 5 :00am SHELTER LAB WORK June 12, 2024 5:00am SHELTER LAB WORK June 16 5:00am SHELTER LAB WORK June 19 5:00am LABWORK June 23, 2024 5:00am SHELTER LAB WORK June 26 5:00am SHELTER LAB WORK June 30 5:00am Chief Complaint Admit Date LABWORK April 07, 2024 5 :00am SHELTER LAB WORK April 10, 2024 5:00am SHELTER LAB WORK April 14, 2024 5:00am SHELTER LAB WORK April 17 5:00am LABWORK April 21, 2024 5:00am SHELTER LAB WORK April 24 4:00am LABWORK April 28, 2024 5:00am SHELTER LAB WORK May 01 4:00am SHELTER LAB WORK May 05 5:00am SHELTER LAB WORK May 08, 2024 5:00am SHELTER LAB WORK May 09, 2024 4:00am LABWORK May 12, 2024 5: 00am SHELTER LAB WORK May 15, 2024 5:00am SHELTER LAB WORK May 19, 2024 4:00am SHELTER LAB WORK May 20, 2024 5:00am SHELTER LAB WORK May 22, 2024 5:00am LABWORK May 26, 2024 5 :00am SHELTER LAB WORK May 29, 2024 5:00am SHELTER LAB WORK June 02, 2024 5:00am SHELTER LAB WORK June 05, 2024 5:00am LABWORK June 09, 2024 5 :00am SHELTER LAB WORK June 12, 2024 5:00am SHELTER LAB WORK June 16 5:00am SHELTER LAB WORK June 19 5:00am LABWORK June 23, 2024 5:00am SHELTER LAB WORK June 26 5:00am SHELTER LAB WORK June 30 5:00am SHELTER LAB WORK July 03 5:00am SHELTER LAB WORK July 07, 2024 4: 00am LABWORK July 11, 2024 5:00 am LABWORK July 14, 2024 5:0 0am SHELTER LAB WORK July 17, 2024 4 :00am SHELTER LAB WORK July 24, 2024 4 :00am Chief Complaint Admit Date SHELTER LAB WORK April 14, 2024 5:00am SHELTER LAB WORK April 17 5:00am LABWORK April 21, 2024 5:00am SHELTER LAB WORK April 24 4:00am LABWORK April 28, 2024 5:00am SHELTER LAB WORK May 01 4:00am SHELTER LAB WORK May 05 5:00am SHELTER LAB WORK May 08, 2024 5:00am SHELTER LAB WORK May 09, 2024 4:00am LABWORK May 12, 2024 5: 00am SHELTER LAB WORK May 15, 2024 5:00am SHELTER LAB WORK May 19, 2024 4:00am SHELTER LAB WORK May 20, 2024 5:00am SHELTER LAB WORK May 22, 2024 5:00am LABWORK May 26, 2024 5 :00am SHELTER LAB WORK May 29, 2024 5:00am SHELTER LAB WORK June 02, 2024 5:00am SHELTER LAB WORK June 05, 2024 5:00am LABWORK June 09, 2024 5 :00am SHELTER LAB WORK June 12, 2024 5:00am SHELTER LAB WORK June 16 5:00am SHELTER LAB WORK June 19 5:00am LABWORK June 23, 2024 5:00am SHELTER LAB WORK June 26 5:00am SHELTER LAB WORK June 30 5:00am SHELTER LAB WORK July 03 5:00am SHELTER LAB WORK July 07, 2024 4: 00am LABWORK July 11, 2024 5:00 am LABWORK July 14, 2024 5:0 0am SHELTER LAB WORK July 17, 2024 4 :00am SHELTER LAB WORK July 24, 2024 4 :00am LABWORK July 25, 2024 5:0 0am Chief Complaint Admit Date SHELTER LAB WORK April 14, 2024 5:00am SHELTER LAB WORK April 17 5:00am LABWORK April 21, 2024 5:00am SHELTER LAB WORK April 24 4:00am LABWORK April 28, 2024 5:00am SHELTER LAB WORK May 01 4:00am SHELTER LAB WORK May 05 5:00am SHELTER LAB WORK May 08, 2024 5:00am SHELTER LAB WORK May 09, 2024 4:00am LABWORK May 12, 2024 5: 00am SHELTER LAB WORK May 15, 2024 5:00am SHELTER LAB WORK May 19, 2024 4:00am SHELTER LAB WORK May 20, 2024 5:00am SHELTER LAB WORK May 22, 2024 5:00am LABWORK May 26, 2024 5 :00am SHELTER LAB WORK May 29, 2024 5:00am SHELTER LAB WORK June 02, 2024 5:00am SHELTER LAB WORK June 05, 2024 5:00am LABWORK June 09, 2024 5 :00am SHELTER LAB WORK June 12, 2024 5:00am SHELTER LAB WORK June 16 5:00am SHELTER LAB WORK June 19 5:00am LABWORK June 23, 2024 5:00am SHELTER LAB WORK June 26 5:00am SHELTER LAB WORK June 30 5:00am SHELTER LAB WORK July 03 5:00am SHELTER LAB WORK July 07, 2024 4: 00am LABWORK July 11, 2024 5:00 am LABWORK July 14, 2024 5:0 0am SHELTER LAB WORK July 17, 2024 4 :00am SHELTER LAB WORK July 21, 2024 5 :00am SHELTER LAB WORK July 24, 2024 4 :00am LABWORK July 25, 2024 5:0 0am SHELTER LAB WORK July 31, 2024 4 :00am Chief Complaint Admit Date SHELTER LAB WORK April 17 5:00am LABWORK April 21, 2024 5:00am SHELTER LAB WORK April 24 4:00am LABWORK April 28, 2024 5:00am SHELTER LAB WORK May 01 4:00am SHELTER LAB WORK May 05 5:00am SHELTER LAB WORK May 08, 2024 5:00am SHELTER LAB WORK May 09, 2024 4:00am LABWORK May 12, 2024 5: 00am SHELTER LAB WORK May 15, 2024 5:00am SHELTER LAB WORK May 19, 2024 4:00am SHELTER LAB WORK May 20, 2024 5:00am SHELTER LAB WORK May 22, 2024 5:00am LABWORK May 26, 2024 5 :00am SHELTER LAB WORK May 29, 2024 5:00am SHELTER LAB WORK June 02, 2024 5:00am SHELTER LAB WORK June 05, 2024 5:00am LABWORK June 09, 2024 5 :00am SHELTER LAB WORK June 12, 2024 5:00am SHELTER LAB WORK June 16 5:00am SHELTER LAB WORK June 19 5:00am LABWORK June 23, 2024 5:00am SHELTER LAB WORK June 26 5:00am SHELTER LAB WORK June 30 5:00am SHELTER LAB WORK July 03 5:00am SHELTER LAB WORK July 07, 2024 4: 00am LABWORK July 11, 2024 5:00 am LABWORK July 14, 2024 5:0 0am SHELTER LAB WORK July 17, 2024 4 :00am SHELTER LAB WORK July 21, 2024 5 :00am SHELTER LAB WORK July 24, 2024 4 :00am LABWORK July 25, 2024 5:0 0am SHELTER LAB WORK July 28, 2024 5 :00am SHELTER LAB WORK July 31, 2024 4 :00am Chief Complaint Admit Date SHELTER LAB WORK April 24 4:00am LABWORK April 28, 2024 5:00am SHELTER LAB WORK May 01 4:00am SHELTER LAB WORK May 05 5:00am SHELTER LAB WORK May 08, 2024 5:00am SHELTER LAB WORK May 09, 2024 4:00am LABWORK May 12, 2024 5: 00am SHELTER LAB WORK May 15, 2024 5:00am SHELTER LAB WORK May 19, 2024 4:00am SHELTER LAB WORK May 20, 2024 5:00am SHELTER LAB WORK May 22, 2024 5:00am LABWORK May 26, 2024 5 :00am SHELTER LAB WORK May 29, 2024 5:00am SHELTER LAB WORK June 02, 2024 5:00am SHELTER LAB WORK June 05, 2024 5:00am LABWORK June 09, 2024 5 :00am SHELTER LAB WORK June 12, 2024 5:00am SHELTER LAB WORK June 16 5:00am SHELTER LAB WORK June 19 5:00am LABWORK June 23, 2024 5:00am SHELTER LAB WORK June 26 5:00am SHELTER LAB WORK June 30 5:00am SHELTER LAB WORK July 03 5:00am SHELTER LAB WORK July 07, 2024 4: 00am LABWORK July 11, 2024 5:00 am LABWORK July 14, 2024 5:0 0am SHELTER LAB WORK July 17, 2024 4 :00am SHELTER LAB WORK July 21, 2024 5 :00am SHELTER LAB WORK July 24, 2024 4 :00am LABWORK July 25, 2024 5:0 0am SHELTER LAB WORK July 28, 2024 5 :00am SHELTER LAB WORK July 31, 2024 4 :00am LABWORK August 04, 2024 5:0 0am Chief Complaint Admit Date SHELTER LAB WORK May 15, 2024 5:00am SHELTER LAB WORK May 19, 2024 4:00am SHELTER LAB WORK May 20, 2024 5:00am SHELTER LAB WORK May 22, 2024 5:00am LABWORK May 26, 2024 5 :00am SHELTER LAB WORK May 29, 2024 5:00am SHELTER LAB WORK June 02, 2024 5:00am SHELTER LAB WORK June 05, 2024 5:00am LABWORK June 09, 2024 5 :00am SHELTER LAB WORK June 12, 2024 5:00am SHELTER LAB WORK June 16 5:00am SHELTER LAB WORK June 19 5:00am LABWORK June 23, 2024 5:00am SHELTER LAB WORK June 26 5:00am SHELTER LAB WORK February 24th, 202 5 5:00am SHELTER LAB WORK July 03 5:00am SHELTER LAB WORK July 07, 2024 4: 00am LABWORK July 11, 2024 5:00 am LABWORK July 14, 2024 5:0 0am SHELTER LAB WORK July 17, 2024 4 :00am SHELTER LAB WORK July 21, 2024 5 :00am SHELTER LAB WORK July 24, 2024 4 :00am LABWORK July 25, 2024 5:0 0am SHELTER LAB WORK July 28, 2024 5 :00am SHELTER LAB WORK July 31, 2024 4 :00am LABWORK August 04, 2024 5:0 0am LABWORK August 07, 2024 5:00 am SHELTER LAB WORK August 11, 2024 5: 00am SHELTER LAB WORK August 14, 2024 5 :00am SHELTER LAB WORK August 18, 2024 5 :00am Chief Complaint Admit Date SHELTER LAB WORK May 20, 2024 5:00am SHELTER LAB WORK May 22, 2024 5:00am LABWORK May 26, 2024 5 :00am SHELTER LAB WORK May 29, 2024 5:00am SHELTER LAB WORK June 02, 2024 5:00am SHELTER LAB WORK June 05, 2024 5:00am LABWORK June 09, 2024 5 :00am SHELTER LAB WORK June 12, 2024 5:00am SHELTER LAB WORK June 16 5:00am SHELTER LAB WORK June 19 5:00am LABWORK June 23, 2024 5:00am SHELTER LAB WORK June 26 5:00am SHELTER LAB WORK June 30 5:00am SHELTER LAB WORK July 03 5:00am SHELTER LAB WORK July 07, 2024 4: 00am LABWORK July 11, 2024 5:00 am LABWORK July 14, 2024 5:0 0am SHELTER LAB WORK July 17, 2024 4 :00am SHELTER LAB WORK July 21, 2024 5 :00am SHELTER LAB WORK July 24, 2024 4 :00am LABWORK July 25, 2024 5:0 0am SHELTER LAB WORK July 28, 2024 5 :00am SHELTER LAB WORK July 31, 2024 4 :00am LABWORK August 04, 2024 5:0 0am LABWORK August 07, 2024 5:00 am SHELTER LAB WORK August 11, 2024 5: 00am SHELTER LAB WORK August 14, 2024 5 :00am SHELTER LAB WORK August 18, 2024 5 :00am LABWORK August 28, 2024 5:0 0am Chief Complaint Admit Date SHELTER LAB WORK May 22, 2024 5:00am LABWORK May 26, 2024 5 :00am SHELTER LAB WORK May 29, 2024 5:00am SHELTER LAB WORK June 02, 2024 5:00am SHELTER LAB WORK June 05, 2024 5:00am LABWORK June 09, 2024 5 :00am SHELTER LAB WORK June 12, 2024 5:00am SHELTER LAB WORK June 16 5:00am SHELTER LAB WORK June 19 5:00am LABWORK June 23, 2024 5:00am SHELTER LAB WORK June 26 5:00am SHELTER LAB WORK June 30 5:00am SHELTER LAB WORK July 03 5:00am SHELTER LAB WORK July 07, 2024 4: 00am LABWORK July 11, 2024 5:00 am LABWORK July 14, 2024 5:0 0am SHELTER LAB WORK July 17, 2024 4 :00am SHELTER LAB WORK July 21, 2024 5 :00am SHELTER LAB WORK July 24, 2024 4 :00am LABWORK July 25, 2024 5:0 0am SHELTER LAB WORK July 28, 2024 5 :00am SHELTER LAB WORK July 31, 2024 4 :00am LABWORK August 04, 2024 5:0 0am LABWORK August 07, 2024 5:00 am SHELTER LAB WORK August 11, 2024 5: 00am SHELTER LAB WORK August 14, 2024 5 :00am SHELTER LAB WORK August 18, 2024 5 :00am SHELTER LAB WORK August 21, 2024 5 :00am LABWORK August 28, 2024 5:0 0am LABWORK September 01, 2024 5:0 0am Chief Complaint Admit Date SHELTER LAB WORK June 05, 2024 5:00am LABWORK June 09, 2024 5 :00am SHELTER LAB WORK June 12, 2024 5:00am SHELTER LAB WORK June 16 5:00am SHELTER LAB WORK June 19 5:00am LABWORK June 23, 2024 5:00am SHELTER LAB WORK June 26 5:00am SHELTER LAB WORK June 30 5:00am SHELTER LAB WORK July 03 5:00am SHELTER LAB WORK July 07, 2024 4: 00am LABWORK July 11, 2024 5:00 am LABWORK July 14, 2024 5:0 0am SHELTER LAB WORK July 17, 2024 4 :00am SHELTER LAB WORK July 21, 2024 5 :00am SHELTER LAB WORK July 24, 2024 4 :00am LABWORK July 25, 2024 5:0 0am SHELTER LAB WORK July 28, 2024 5 :00am SHELTER LAB WORK July 31, 2024 4 :00am LABWORK August 04, 2024 5:0 0am LABWORK August 07, 2024 5:00 am SHELTER LAB WORK August 11, 2024 5: 00am SHELTER LAB WORK August 14, 2024 5 :00am SHELTER LAB WORK August 18, 2024 5 :00am SHELTER LAB WORK August 21, 2024 5 :00am SHELTER LAB WORK August 25, 2024 4 :00am LABWORK August 28, 2024 5:0 0am LABWORK September 01, 2024 5:0 0am LABWORK September 04, 2024 5:00am Chief Complaint Admit Date SHELTER LAB WORK June 05, 2024 5:00am LABWORK June 09, 2024 5 :00am SHELTER LAB WORK June 12, 2024 5:00am SHELTER LAB WORK June 16 5:00am SHELTER LAB WORK June 19 5:00am LABWORK June 23, 2024 5:00am SHELTER LAB WORK June 26 5:00am SHELTER LAB WORK June 30 5:00am SHELTER LAB WORK July 03 5:00am SHELTER LAB WORK July 07, 2024 4: 00am LABWORK July 11, 2024 5:00 am LABWORK July 14, 2024 5:0 0am SHELTER LAB WORK July 17, 2024 4 :00am SHELTER LAB WORK July 21, 2024 5 :00am SHELTER LAB WORK July 24, 2024 4 :00am LABWORK July 25, 2024 5:0 0am SHELTER LAB WORK July 28, 2024 5 :00am SHELTER LAB WORK July 31, 2024 4 :00am LABWORK August 04, 2024 5:0 0am LABWORK August 07, 2024 5:00 am SHELTER LAB WORK August 11, 2024 5: 00am SHELTER LAB WORK August 14, 2024 5 :00am SHELTER LAB WORK August 18, 2024 5 :00am SHELTER LAB WORK August 21, 2024 5 :00am SHELTER LAB WORK August 25, 2024 4 :00am LABWORK August 28, 2024 5:0 0am LABWORK September 01, 2024 5:0 0am LABWORK September 04, 2024 5:00am LABWORK September 15, 2024 5:00a m Chief Complaint Admit Date SHELTER LAB WORK June 19 5:00am LABWORK June 23, 2024 5:00am SHELTER LAB WORK June 26 5:00am SHELTER LAB WORK June 30 5:00am SHELTER LAB WORK July 03 5:00am SHELTER LAB WORK July 07, 2024 4: 00am LABWORK July 11, 2024 5:00 am LABWORK July 14, 2024 5:0 0am SHELTER LAB WORK July 17, 2024 4 :00am SHELTER LAB WORK July 21, 2024 5 :00am SHELTER LAB WORK July 24, 2024 4 :00am LABWORK July 25, 2024 5:0 0am SHELTER LAB WORK July 28, 2024 5 :00am SHELTER LAB WORK July 31, 2024 4 :00am LABWORK August 04, 2024 5:0 0am LABWORK August 07, 2024 5:00 am SHELTER LAB WORK August 11, 2024 5: 00am SHELTER LAB WORK August 14, 2024 5 :00am SHELTER LAB WORK August 18, 2024 5 :00am SHELTER LAB WORK August 21, 2024 5 :00am SHELTER LAB WORK August 25, 2024 4 :00am LABWORK August 28, 2024 5:0 0am LABWORK September 01, 2024 5:0 0am LABWORK September 04, 2024 5:00am SHELTER LAB WORK September 08, 2024 4:00 am SHELTER LAB WORK September 11, 2024 5:00 am LABWORK September 15, 2024 5:00a m SHELTER LAB WORK September 25, 2024 5:0 0am SHELTER LAB WORK September 30, 2024 4:0 0am Chief Complaint Admit Date SHELTER LAB WORK June 12, 2024 5:00am SHELTER LAB WORK June 16 5:00am SHELTER LAB WORK June 19 5:00am LABWORK June 23, 2024 5:00am SHELTER LAB WORK June 26 5:00am SHELTER LAB WORK June 30 5:00am SHELTER LAB WORK July 03 5:00am SHELTER LAB WORK July 07, 2024 4: 00am LABWORK July 11, 2024 5:00 am LABWORK July 14, 2024 5:0 0am SHELTER LAB WORK July 17, 2024 4 :00am SHELTER LAB WORK July 21, 2024 5 :00am SHELTER LAB WORK July 24, 2024 4 :00am LABWORK July 25, 2024 5:0 0am SHELTER LAB WORK July 28, 2024 5 :00am SHELTER LAB WORK July 31, 2024 4 :00am LABWORK August 04, 2024 5:0 0am LABWORK August 07, 2024 5:00 am SHELTER LAB WORK August 11, 2024 5: 00am SHELTER LAB WORK August 14, 2024 5 :00am SHELTER LAB WORK August 18, 2024 5 :00am SHELTER LAB WORK August 21, 2024 5 :00am SHELTER LAB WORK August 25, 2024 4 :00am LABWORK August 28, 2024 5:0 0am LABWORK September 01, 2024 5:0 0am LABWORK September 04, 2024 5:00am SHELTER LAB WORK September 08, 2024 4:00 am LABWORK September 15, 2024 5:00a m Chief Complaint Admit Date SHELTER LAB WORK July 07, 2024 4: 00am LABWORK July 11, 2024 5:00 am LABWORK July 14, 2024 5:0 0am SHELTER LAB WORK July 17, 2024 4 :00am SHELTER LAB WORK July 21, 2024 5 :00am SHELTER LAB WORK July 24, 2024 4 :00am LABWORK July 25, 2024 5:0 0am SHELTER LAB WORK July 28, 2024 5 :00am SHELTER LAB WORK July 31, 2024 4 :00am LABWORK August 04, 2024 5:0 0am LABWORK August 07, 2024 5:00 am SHELTER LAB WORK August 11, 2024 5: 00am SHELTER LAB WORK August 14, 2024 5 :00am SHELTER LAB WORK August 18, 2024 5 :00am SHELTER LAB WORK August 21, 2024 5 :00am SHELTER LAB WORK August 25, 2024 4 :00am LABWORK August 28, 2024 5:0 0am LABWORK September 01, 2024 5:0 0am LABWORK September 04, 2024 5:00am SHELTER LAB WORK September 08, 2024 4:00 am SHELTER LAB WORK September 11, 2024 5:00 am LABWORK September 15, 2024 5:00a m SHELTER LAB WORK September 18, 2024 5:0 0am SHELTER LAB WORK September 22, 2024 5:0 0am SHELTER LAB WORK September 25, 2024 5:0 0am SHELTER LAB WORK September 30, 2024 4:0 0am SHELTER LAB WORK October 02, 2024 5:0 0am SHELTER LAB WORK October 09, 2024 5:0 0am Reason for Referral Specialty Diagnoses / Procedures Referred By Aki t Referred To Contact Urology Diagnoses Other fatigue Lanette Munguia DO [address] [place] [address] [facility] [address] [place] [id number] Referral ID Status Reason Start Date Expiration Date V isits Requested Visits Authorized [id number] Open Specialty Services Required 11/01/2021 11/01/2022 [address] [facility] U[facility] - [address] , [address] [place] [id number] Specialty Diagnoses / Procedures Referred By Contac t Referred To Contact IP Unit Diagnoses Heel ulceration, left, with unspecified severity (HCC) Henry Hidalgo [place] [address] [place] [address] [facility] [address] [place] [id number] Referral ID Status Reason Start Date Expiration Date V isits Requested Visits Authorized [id number] Open Specialty Services Required 12/22/2021 12/22/2022 1 1 Scheduling Instructions [facility] [address] [place] [address] Comments Please use the parking lot located on [employer] or [employer]. There are handicap parking spots located in a small lot beside the wound care entrance off of [place] [employer] [address]. Please be advised there is a small incline from those handicap spots to our main door. Bring photo ID and insurance card to photocopy. Wear loose fitting clothing (to easily access wound). Bring list of medications (or can be sent by office). Check in at Registration for your first visit. Please call us directly with any questions [phone]. We look forward to helping you heal. Specialty Diagnoses / Procedures Referred By Contac t Referred To Contact Radiology Diagnoses Left flank pain Calculus of ureter Procedures CT abdomen pelvis wo IV contrast Rebecca Buck MD [address] [place] [address] Referral ID Status Reason Start Date Expiration Date V isits Requested Visits Authorized [id number] Pending Review 08/13/2023 08/12/2024 1 1 Referral ID Status Reason Start Date Expiration Date Visits Re quested Visits Authorized [id number] Closed 08/17/2023 09/16/2023 1 1 Additional Source Comments Source Comments (unrecognize d section and content) In the event this informatio n is protected by the Federal Confidentiality of Alcohol and Drug Abuse Patient Records regulations: The Federal rules restrict any use of the information to criminally investigate or prosecute any alcohol or drug abuse patient[facility] the event this information is protected by the Federal Confidentiality of Alcohol and Drug Abuse Patient Records regulations: The Federal rules restrict any use of the information to criminally investigate or prosecute any alcohol or drug abuse patient[facility] (unrecognized sect ion and content) No Status Records FoundNo Status Records FoundNo Status Records FoundNo Status Records FoundNo Status Records FoundNo Status Records FoundNo Status Records FoundNo Status Records FoundNo Status Records FoundNo Status Records Found INFORMATION SOURCE (unrecogn ized section and content) DATE CREATED AUTHOR 05/20/2021 [facility] [place] DATE CREATED AUTHOR AUTHOR'S ORGANIZ ATION 06/07/2021 [facility] DATE CREATED AUTHOR AUTHOR'S ORGANIZ ATION 08/02/[address] [facility] DATE CREATED AUTHOR AUTHOR'S ORGANIZ ATION 12/09/2021 [facility] DATE CREATED AUTHOR AUTHOR'S ORGANIZ ATION 12/29/2021 [facility] DATE CREATED AUTHOR AUTHOR'S ORGANIZ ATION 02/04/2022 [facility] DATE CREATED AUTHOR AUTHOR'S ORGANIZ ATION 03/03/2022 [facility] DATE CREATED AUTHOR AUTHOR'S ORGANIZ ATION 09/15/2023 [facility] DATE CREATED AUTHOR AUTHOR'S ORGANIZ ATION 11/23/2024 [facility] Reason for Visit (unrecogniz ed section and content) Reason Comments Missed Appointment Reason Comments Leg Swelling Blood clots Reason Comments Altered Mental Status Pt presents to ED via [facility] for complaint listed. Pt is from [facility]. Pt's LKW was 1000 hours today. Per EMS, pt had a - [place]. Pt denies CP, SOB, and N/V. Pt seems slow to respond, slightly confused at this time. Reason Comments Osteomyelitis Patient from [facility], facility did xrays on left lower leg and and have concerns for possible osteomyelitis A&Ox2 to self and place, stated year 2022 preside [facility] Reason Comments Fall Patient had unwitnes sed fall at [facility] landed on butt. Is on [...] Buck MD [address] [place] [address] Referral ID Status Reason Start Date Expiration Date Visits Re quested Visits Authorized [id number] Closed 08/17/2023 09/16/2023 1 1 Reason Comments [...] September 01, 2024 End: September 01, 2024 Cralos NOVAK Attending Provider Active Sta rt: September [...] Active Start: May 19, 2024 Dr. 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 Start Date End Date Carlos Cavazos [address] [place] [phone] PCP - General 12/21/21 Rebecca Buck MD [address] [address] Surgeon Urology 06/25/23 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 Start Date End Date Carlos Cavazos [address] [place] [phone] PCP - General 12/21/21 Rebecca Buck MD [address] [address] Surgeon Urology 06/25/23 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 Start Date End Date Carlos Cavazos [address] [place] [phone] PCP - General 12/21/21 Rebecca Buck MD [address] [address] Surgeon Urology 06/25/23 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 Monika Staley MD Primary Care Provider Active Start: March 13, 2024 End: March 13, 2024 [facility] Attending Provider Active Start: March 13, 2024 End: March 13, 2024 Team Status: Inactive Member Role Status Dates Dr. Monika Staley MD Primary Care Provider Active Start: March 14, 2024 End: March 14, 2024 Carlso NOVAK Attending Provider Active Sta rt: March 14, 2024 End: March 14, 2024 Team Status: Inactive Member Role Status Dates Dr. Monika Staley MD Primary Care Provider Active Start: March 17, 2024 End: March 17, 2024 [facility] Attending Provider Active Start: March 17, 2024 End: March 17, 2024 Team Status: Inactive Member Role Status Dates Dr. Monika Staley MD Primary Care Provider Active Start: March 18, 2024 End: March 18, 2024 [facility] Attending Provider Active Start: March 18, [...] March 20, 2024 End: March 20, 2024 [facility] Attending Provider Active Start: March 20, [...] March 27, 2024 End: March 27, 2024 [facility] Attending Provider Active Start: March 27, [...] Care Provider Active Start: July 07, 2024 [facility] Attending Provider Active Start: July 07, [...] Hoff RN)1355 (Given - Provider: Rosanne Hoff, AYUSH)192 (Given - Provider: Lisa Ashby, AYUSH) 1024 (Given - Provider: Fabi Subramanian, AYUSH)1547 (Given - Provider: Cliff Isidro RN)2100 (Due) bumetanide (BUMEX) tablet 2 mg 2 mg, Oral, DAILY, First dose on Sun10/21/21 at 0900, Until Discontinued 910 (Given - Provider: Rosanne Hoff RN) 0816 (Given - Provider: Rosanne Hoff RN) 1025 (Given - Provider: Fabi Subramanian, AYUSH) enoxaparin (LOVENOX) injection 105 mg (CANCELED) 105 [...] dose on Sun10/26/21 at 2000, Until Discontinued 09 (New Bag - Provider: Rosanne Hoff RN)102 (Stopped - Provider: Rosanne Hoff RN)2034 (New Bag - Provider: Katlni Julio RN)2103 (Stopped - Provider: Katlin Julio RN) 0816 (New Bag - Provider: Rosanne Hoff RN)0953 (Stopped - Provider: Rosanne Hoff RN)2055 (New Bag - Provider: Lisa Ashby RN)2144 (Stopped - Provider: iLsa Ashby, AYUSH) 102 (New Bag - Provider: Fabi Subramanian RN)1150 [...] mL/lumen 0912 (Given - Provider: Rosanne Hoff RN)2034 (Given - Provider: Katlin Julio RN) 0816 (Given - Provider: Rosanne Hoff RN)192 (Given - Provider: Lisa Ashby RN) 1027 [...] mg, Oral, ONCE Warfarin, 1 dose, On [facility] 10/29/21 at 1800, Indication of Use: Treatment-DVT/PE, [...] First dose on Sun12/22/21 at 0000, Until Discontinued, Flush line with 3-5 mL 0000 (Due)0800 (Due) 1600 (Due) Linked Groups Order Group 1: Saline lock IV Routine, CONTINUOUS, Starting on Sun12/22/21 at 0000, Until Specified And sodium chloride [...] BE BASED ON THE PRIMARY CLINICAL RECORDS. [facility]. provides no warranty or guarantee of the accuracy or completeness of information in this document.
[2024-11-24 09:05] LABS: Prothrombin Time (Protime)PT. 30.0 SECONDS (11.7-14.9)
== END ==
LOC: OLS.SANC 05:00
PROVIDERS: PCP General Practice
DX: Z79.01 Long term (current) use of 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 (principal)
CPT/HCPCS: 36415; 85610

== ENCOUNTER → 2024-11-27 | Outpatient (REF) | payer MEDICARE, MEDICAID, SELFPAY ==
[2024-11-27 09:10] LABS: Prothrombin Time (Protime)PT. 34.3 SECONDS (11.7-14.9)
== END ==
LOC: OLS.SANC 05:00
PROVIDERS: PCP General Practice
DX: Z79.01 Long term (current) use of 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 (principal)
CPT/HCPCS: 36415; 85610

== ENCOUNTER → 2024-11-28 | Outpatient (REF) | payer MEDICARE, MEDICAID, SELFPAY ==
[2024-11-28 08:25] LABS: Prothrombin Time (Protime)PT. 32.8 SECONDS (11.7-14.9)
== END ==
LOC: OLS.SANC 05:00
PROVIDERS: PCP General Practice; Visit Provider Internal Medicine
DX: Z79.01 Long term (current) use of 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 (principal)
CPT/HCPCS: 36415; 85610

== ENCOUNTER → 2024-12-01 05:00 | Outpatient (REF) | payer MEDICARE, MEDICAID, SELFPAY ==
[2024-12-01 09:26] LABS: Prothrombin Time (Protime)PT. 26.0 SECONDS (11.7-14.9)
== END ==
LOC: OLS.SANC 05:00
PROVIDERS: PCP General Practice; Visit Provider Internal Medicine
DX: Z79.01 Long term (current) use of 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 (principal)
CPT/HCPCS: 36415; 85610

== ENCOUNTER → 2024-12-02 04:00 | Outpatient (REF) | payer MEDICARE, MEDICAID, SELFPAY ==
--- OUTSIDE RECORDS SUMMARY | 2024-12-02 04:09 | XMS RPT_ITS | CCD ---
Author Organization [facility] Care Team Providers Care Director [facility] Name Role Phone Mateus Burris Primary Care [...] Provider Monika Staley MD Primary Care Provider [phone] Carlos Cavazos Primary Care Unavailable Carlos Cavazos Referring Unavailable Cliff Espinoza Attending Unavailable Carlos Cavazos Primary Care Unavailable Carlos Cavazos Referring Unavailable Carlos Cavazos Attending Unavailable Carlos Cavazos Attending Unavailable Carlos Cavazos Primary Care Unavailable Carlos Cavazos Referring Unavailable PROVIDER, UNKNOWN Referring Unavailable Mateus Burris Primary Care Unavailable Karon Corrales Attending Unavailable Carlos Cavazos MD Primary Care Provider [phone] PROVIDER, UNKNOWN Primary Care Unavailable PROVIDER, UNKNOWN Referring Unavailable LANETTE MUNGUIA Attending Unavailable SHARON HSIEH Attending Jeanine vailable PROVIDER, UNKNOWN Primary Care Unavailable PROVIDER, UNKNOWN Referring Unavailable PROVIDER, UNKNOWN Referring Unavailable MATEUS BURRIS Primary Care Unavailabl DANTE Barrera Attending Unavailable Kenny, Carlos Primary Care Provider [phone] Quinn VALLADARES, Rebecca L Unavailable Quinn VALLADARES, Rebecca L Unavailable [phone] REBECCA BUCK Attending Unavailable REBECCA BUCK Referring Unavailable CARLOS CAVAZOS Primary Care Unavailable REBECCA BUCK Attending Unavailable KENNY, CARLOS Primary Care Unavailable REBECCA BUCK Attending Unavailable KENNY, CARLOS Primary Care Unavailable Luís VALLADARES, Dr. Monika Horner Primary Care Provider [facility] Attending Provider [phone] Carlos Nelson Attending Provider Jonh Pascual MD, [...] Provider Carlos Nelson Attending Provider Unavailab le Luís, Shiela Primary Care Unavailable Carlos Nelson Attending Unavailable Luís, Shiela Primary Care Unavailable Katsaros Carlos NOVAK Attending Unavailable Luís, Shiela Primary Care Unavailable [place] Karon NOVAK Attending Unavail able Luís, Shiela Primary Care Unavailable [place] OLSKaron Attending Unavail able [place]alla OLSKaron Referring Unavail able Luís, Shiela Primary Care Unavailable [place] OLSKaron Attending Unavail able Luís, Shiela Primary Care Unavailable Katsaros Carlos NOVAK Attending Unavailable [place] OLSKaron Referring Unavail able Luís, Shiela Primary Care Unavailable [place] OLS, Karon Attending Unavail able Luís, Shiela Primary Care Unavailable [place] OLSKaron Attending Unavail able Luís, Shiela Primary Care Unavailable Kvng Sen Attending Unavailable [...] Katsaros OLS, Peter Attending Unavailable Crisostomo OLS, Kvng Referring Unavailable Luís, Shiela Primary Care Unavailable [...] Care Unavailable Katsaros OLS, Peter Attending Unavailable [place]kamalla OLS, Melindaer Referring Unavail able Luís, [...] able Luís, Shiela Primary Care Unavailable Katsaros SCARLET, Carlos Attending Unavailable Luís, Shiela Primary Care Unavailable [facility] Attending Unavai lable Luís, Shiela Primary Care Unavailable Katsaros Carlos NOVAK Attending Unavailable Crisostomo OLSVicentebaljeet Referring Unavailable Luís, Shiela Primary Care Unavailable Crisostomo OLS, Babbaljeet Attending Unavailable Luís, Shiela Primary Care Unavailable [facility] Attending Unavai lable Luís, Shiela Primary Care Unavailable Katsaros Carlos NOVAK Attending Unavailable Luís, Shiela Primary Care Unavailable [facility] Attending Unavai lable Luís, Shiela Primary Care Unavailable [facility] Attending Unavai lable Luís, Shiela Primary Care Unavailable [facility] Attending Unavai lable Luís, Shiela Primary Care Unavailable [facility] Attending Unavai lable Luís, Shiela Primary Care Unavailable Katsaros Carlos NOVAK Attending Unavailable Luís, Shiela Primary Care Unavailable [facility] [place] Attending Unavai lable Luís, Shiela Primary Care Unavailable [facility] [place] Attending Unavai lable Luís, Shiela Primary Care Unavailable [facility] [place] Attending Unavai lable Luís, Shiela Primary Care Unavailable [facility] [place] Attending Unavai lable Luís, Shiela Primary Care Unavailable [facility] [place] Attending Unavai lable KatsaCarlos Villavicencio Attending Unavailable Luís, Shiela Primary Care Unavailable Luís, Shiela Primary Care Unavailable [facility] [place] Attending Unavai lable Luís, Shiela Primary Care Unavailable [facility] Attending JeaninevaKaron Christie Referring Unavail able Luís, Shiela Primary Care Unavailable DavidkkKaron Hoover Attending Unavail able Crisostomo OLSVicentebalkarolet Referring Unavailable Luís, Shiela Primary Care Unavailable Crisostomo OLSKvng Attending Unavailable Luís, Shiela Primary Care Unavailable Katsaros Carlos NOVAK Attending Unavailable Crisostomo OLSVicentebaljeet Referring Unavailable Luís, Shiela Primary Care Unavailable Crisostomo OLSElizabethet Attending Unavailable Luís, Shiela Primary Care Unavailable Crisostomo OLSElizabethet Attending Unavailable Luís, Shiela Primary Care Unavailable Crisostomo OLSVicentebaljeet Attending Unavailable Crisostomo OLS, Babbaljeet Referring Unavailable Luís, Shiela Primary Care Unavailable Crisostomo OLSElizabethet Attending Unavailable Luís, Shiela Primary Care Unavailable Katsaros Carlos NOVAK Attending Unavailable Luís, Shiela Primary Care Unavailable Crisostomo OLSKvng Attending Unavailable Luís, Shiela Primary Care Unavailable Katsaros Carlos NOVAK Attending Unavailable Luís, Shiela Primary Care Unavailable Katsaros Carlos NOVAK Attending Unavailable Luís, Shiela Primary Care Unavailable [facility] [place] Attending Unavai lable Luís, Shiela Primary Care [...] Care Unavailable Crisostomo OLS, Babbaljeet Attending Unavailable [place] OLS, Mahaveer Referring Unavail able [...] Luís, Shiela Primary Care Unavailable [facility] Attending Tricia bustamantele Luís, Shiela Primary Care [...] Unavail able Luís, Shiela Primary Care Unavailable [facility] Attending Tricia denise Luís, Shiela Primary Care Unavailable Katsaros OLS, Carlos Attending Unavailable Luís, Shiela Primary Care Unavailable Katsaros OLS, Peter Attending Unavailable [place] OLS, Kraon Referring Unavail able Luís, Shiela Primary Care Unavailable [place] OLS, Karon Attending Unavail able Luís, Shiela Primary Care Unavailable Katsaros OLS, Carlos Attending Unavailable [place] OLS, Karon Referring Unavail able Luís, Shiela Primary Care Unavailable [place] OLS, Karon Attending Unavail able Luís, Shiela Primary Care Unavailable Katsaros OLS, Carlos Attending Unavailable Luís, Shiela Primary Care Unavailable Katsaros OLS, Peter Attending Unavailable Luís, Shiela Primary Care Unavailable Crisostomo OLS, Kvng Attending Unavailable Luís, Shiela Primary Care Unavailable Crisostomo OLS, Elizabethet Attending Unavailable Allergies Allergy Classification Reported Allergen(s) Allergy Type Date of Onset Reaction(s) Facility (13 sources) Morphine Drug Allergy 5 [facility] Work Phone: (15 sources) Alcohol Propensity to adverse reactions to drug 3 Rash, Hives, Other: See Comments, Other [facility] Work Phone: (1 source) Latex Drug Allergy 0 Rash [facility] (8 sources) Cortisone Drug Allergy 2 [facility] (7 sources) Latex Allergy to substance 0 Rash [facility] Medications Current Medications Medication Drug Class(es) Dates Sig (Normalized) Sig (Original) Acetaminophen (10 sources) Start: 10-21-2021 acetaminophen (TYLENOL) tablet 650 mg Start: 09-14-2021 acetaminophen (TYLENOL) 325 MG tablet 650 mg every 6 hours as needed 0 09/14/2021 Active take 2 tablets by [facility] every eight hours acetaminophen (TYLENOL) 325 mg [...] on above: Take 1 capsule by mo [facility] three times daily. Complete Multi-Vitamin CHEW (4 [...] Active docusate sodium 50 mg / sennosides, assisted 8.6 mg oral tablet (1 source) Start: [...] Units subcutaneously with meals and at bedtime. 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 0 Active Comment on above: Take by mouth. petrolatum 0.41 mg/mg topical ointment (1 source) Start : 08-20 white petrolatum (AQUAPHOR) 41 % topical ointment Apply to affected area once daily. 0 08/20/2021 Active Comment on above: Apply to affected ar ea once daily. 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, [address] PT Coag (PPP) [Time] 26.0 s High 11.7-14.9 [facility] Comment on above: Order Comment: 411-1 Performed By: #### L 300.3900 ####[facility] [address], [address] Prothrombin Time w/INRon INR Coag (PPP) [Relative time] 3.1 {INR} Normal [facility] Comment on above: Order Comment: 411-1 Performed By: #### L 300.3900 ####[facility] [address] [place], [address] PT Coag (PPP) [Time] 32.8 s High 11.7-14.9 [facility] Comment on above: Order Comment: 411-1 Performed By: #### L 300.3900 ####[facility] [address] [place], [address] Prothrombin Time w/INRon INR Coag (PPP) [Relative time] 3.3 {INR} Normal [facility] Comment on above: Order Comment: 411.1 Performed By: #### L 300.3900 ####[facility] [address] [place], [address] PT Coag (PPP) [Time] 34.3 s High 11.7-14.9 [facility] Comment on above: Order Comment: 411.1 Performed By: #### L 300.3900 ####[facility] [address] [place], [address] Prothrombin Time w/INRon INR Coag (PPP) [Relative time] 2.8 {INR} Normal [facility] Comment on above: Order Comment: 411.2 Performed By: #### L 300.3900 ####[facility] [address] [place], [address] PT Coag (PPP) [Time] 30.0 s High 11.7-14.9 [facility] Comment on above: Order Comment: 411.2 Performed By: #### L 300.3900 ####[facility] [address] [place], [address] Prothrombin Time w/INRon INR Coag (PPP) [Relative time] 3.0 {INR} Normal [facility] Comment on above: Order Comment: 411.2 Performed By: #### L 300.3900 ####[facility] [address] [place], [address] PT Coag (PPP) [Time] 32.0 s High 11.7-14.9 [facility] Comment on above: Order Comment: 411.2 Performed By: #### L 300.3900 ####[facility] [address] [place], [address] Prothrombin Time w/INRon INR Coag (PPP) [Relative time] 2.9 {INR} Normal [facility] Comment on above: Order Comment: 411.2 Performed By: #### L 300.3900 ####[facility] [address] [place], [address] PT Coag (PPP) [Time] 30.7 s High 11.7-14.9 [facility] Comment on above: Order Comment: 411.2 Performed By: #### L 300.3900 ####[facility] [address] [place], [address] Prothrombin Time w/INRon INR Coag (PPP) [Relative time] 2.2 {INR} Normal [facility] Comment on above: Order Comment: 411.2 Performed By: #### L 300.3900 ####[facility] [address] [place], [address] PT Coag (PPP) [Time] 24.7 s High 11.7-14.9 [facility] Comment on above: Order Comment: 411.2 Performed By: #### L 300.3900 ####[facility] [address] [place], [address] Prothrombin Time w/INRon INR Coag (PPP) [Relative time] 2.6 {INR} Normal [facility] Comment on above: Order Comment: 411.2 Performed By: #### L 300.3900 ####[facility] [address] [place], [address] PT Coag (PPP) [Time] 28.7 s High 11.7-14.9 [facility] Comment on above: Order Comment: 411.2 Performed By: #### L 300.3900 ####[facility] [address] [place], [address] Prothrombin Time w/INRon INR Coag (PPP) [Relative time] 3.1 {INR} Normal [facility] Comment on above: Order Comment: 411.2 Performed By: #### L 300.3900 ####[facility] [address] [place], [address] PT Coag (PPP) [Time] 33.0 s High 11.7-14.9 [facility] Comment on above: Order Comment: 411.2 Performed By: #### L 300.3900 ####[facility] [address] [place], [address] Prothrombin Time w/INRon INR Coag (PPP) [Relative time] 3.0 {INR} Normal [facility] Comment on above: Order Comment: 411-2 Performed By: #### L 300.3900 ####[facility] [address] [place], [address] PT Coag (PPP) [Time] 31.4 s High 11.7-14.9 [facility] Comment on above: Order Comment: 411-2 Performed By: #### L 300.3900 ####[facility] [address] [place], [address] International normalized rat io (INR) calculationOrdered By: Karon Corrales on 10-30-2024 INR Coag (Bld) [Relative time] 2.4 {INR} [facility] Prothrombin Time w/INRon INR Coag (PPP) [Relative time] 2.4 {INR} Normal [facility] Comment on above: Performed By: #### L 300.3900 ####[facility] [address] [place], [address] PT Coag (PPP) [Time] 26.3 s High 11.7-14.9 [facility] Comment on above: Performed By: #### L 300.3900 ####[facility] [address] [place], [place], [id number] Prothrombin timeOrdered By: Karon Corrales on 10-30-2024 PT Coag (PPP) [Time] 26.3 s High 11.7-14.9 [facility] International normalized rat io (INR) calculationOrdered By: Karon Corrales on 10-27-2024 INR Coag (Bld) [Relative time] 2.2 {INR} [facility] Prothrombin Time w/INRon INR Coag (PPP) [Relative time] 2.2 {INR} Normal [facility] Comment on above: Order Comment: 411.2 Performed By: #### L 300.3900 ####[facility] [address] [place], [address] Prothrombin timeOrdered By: Karon Corrales on 10-27-2024 PT Coag (PPP) [Time] 24.5 s High 11.7-14.9 [facility] Comment on above: Order Comment: 411.2 Performed By: #### L 300.3900 ####[facility] [address] [place], [address] International normalized rat io (INR) calculationOrdered By: Karon Corrales on 10-23-2024 INR Coag (Bld) [Relative time] 2.5 {INR} [facility] Prothrombin Time w/INRon INR Coag (PPP) [Relative time] 2.5 {INR} Normal [facility] Comment on above: Order Comment: 411.2 Performed By: #### L 960.0388 ####[facility] [address] [place], [place], [phone] PT Coag (PPP) [Time] 27.9 s High 11.7-14.9 [facility] Comment on above: Order Comment: 411.2 Performed By: #### L [id number] ####[facility] [address] [place], [place], [phone] Prothrombin timeOrdered By: Karon Corrales on 10-23-2024 PT Coag (PPP) [Time] 27.9 s High 11.7-14.9 [facility] International normalized rat io (INR) calculationOrdered By: Karon Corrales on 10-20-2024 INR Coag (Bld) [Relative time] 3.1 {INR} [facility] Prothrombin Time w/INRon INR Coag (PPP) [Relative time] 3.1 {INR} Normal [facility] Comment on above: Order Comment: 411.2 Performed By: #### L 219.3907 ####[facility] [address] [place], [place], [phone] PT Coag (PPP) [Time] 32.8 s High 11.7-14.9 [facility] Comment on above: Order Comment: 411.2 Performed By: #### L [id number] ####[facility] [address] [place], [place], [phone] Prothrombin timeOrdered By: Karon Corrales on 10-20-2024 PT Coag (PPP) [Time] 32.8 s High 11.7-14.9 [facility] International normalized rat io (INR) calculationOrdered By: Karon Corrales on 10-16-2024 INR Coag (Bld) [Relative time] 2.8 {INR} [facility] Prothrombin Time w/INRon INR Coag (PPP) [Relative time] 2.8 {INR} Normal [facility] Comment on above: Order Comment: 411.2 Performed By: #### L 300.3900 ####[facility] [address] [place], [address] PT Coag (PPP) [Time] 30.4 s High 11.7-14.9 [facility] Comment on above: Order Comment: 411.2 Performed By: #### L 300.3900 ####[facility] [address] [place], [place], [phone] Prothrombin timeOrdered By: Karon Corrales on 10-16-2024 PT Coag (PPP) [Time] 30.4 s High 11.7-14.9 [facility] International normalized rat io (INR) calculationOrdered By: Carlos Cavazos on 10-13-2024 INR Coag (Bld) [Relative time] 1.9 {INR} [facility] Prothrombin Time w/INRon INR Coag (PPP) [Relative time] 1.9 {INR} Normal [facility] Comment on above: Order Comment: 411-2 Performed By: #### L 300.3900 ####[facility] [address] [place], [address] PT Coag (PPP) [Time] 22.4 s High 11.7-14.9 [facility] Comment on above: Order Comment: 411-2 Performed By: #### L 300.3900 ####[facility] [address] [place], [address] Prothrombin timeOrdered By: Carlos Cavazos on 10-13-2024 PT Coag (PPP) [Time] 22.4 s High 11.7-14.9 [facility] International normalized rat io (INR) calculationOrdered By: Karon Corrales on 10-09-2024 INR Coag (Bld) [Relative time] 3.0 {INR} [facility] Prothrombin Time w/INRon INR Coag (PPP) [Relative time] 3.0 {INR} Normal [facility] Comment on above: Order Comment: 411.2 Performed By: #### L 300.3900 ####[facility] [address] [place], [place], [phone] Prothrombin timeOrdered By: Karon Corrales on 10-09-2024 PT Coag (PPP) [Time] 31.8 s High 11.7-14.9 [facility] Comment on above: Order Comment: 411.2 Performed By: #### L 300.3900 ####[facility] [address] [place], [place], [phone] International normalized rat io (INR) calculationOrdered By: Carlos Cavazos on 10-06-2024 INR Coag (Bld) [Relative time] 2.7 {INR} [facility] Prothrombin Time w/INRon INR Coag (PPP) [Relative time] 2.7 {INR} Normal [facility] Comment on above: Order Comment: 411-2 Performed By: #### L 300.3900 ####[facility] [address] [place], [place], [phone] PT Coag (PPP) [Time] 29.6 s High 11.7-14.9 [facility] Comment on above: Order Comment: 411-2 Performed By: #### L 300.3900 ####[facility] [address] [place], [address] Prothrombin timeOrdered By: Carlos Cavazos on 10-06-2024 PT Coag (PPP) [Time] 29.6 s High 11.7-14.9 [facility] International normalized rat io (INR) calculationOrdered By: Karon Corrales on 10-02-2024 INR Coag (Bld) [Relative time] 2.3 {INR} [facility] Prothrombin Time w/INRon INR Coag (PPP) [Relative time] 2.3 {INR} Normal [facility] Comment on above: Order Comment: 411.2 Performed By: #### L 300.3900 ####[facility] [address] [place], [address] PT Coag (PPP) [Time] 26.0 s High 11.7-14.9 [facility] Comment on above: Order Comment: 411.2 Performed By: #### L 300.3900 ####[facility] [address] [place], [address] Prothrombin timeOrdered By: Karon Corrales on 10-02-2024 PT Coag (PPP) [Time] 26.0 s High 11.7-14.9 [facility] International normalized rat io (INR) calculationOrdered By: Karon Corrales on 09-30-2024 INR Coag (Bld) [Relative time] 3.1 {INR} [facility] Prothrombin Time w/INRon INR Coag (PPP) [Relative time] 3.1 {INR} Normal [facility] Comment on above: Order Comment: 411.2 Performed By: #### L 300.3900 ####[facility] [address] [place], [address] PT Coag (PPP) [Time] 32.6 s High 11.7-14.9 [facility] Comment on above: Order Comment: 411.2 Performed By: #### L 300.3900 ####[facility] [address] [place], [address] Prothrombin timeOrdered By: Karon Corrales on 09-30-2024 PT Coag (PPP) [Time] 32.6 s High 11.7-14.9 [facility] International normalized rat io (INR) calculationOrdered By: Karon Corrales on 09-25-2024 INR Coag (Bld) [Relative time] 2.4 {INR} [facility] Prothrombin Time w/INRon INR Coag (PPP) [Relative time] 2.4 {INR} Normal [facility] Comment on above: Order Comment: 411.2 Performed By: #### L 300.3900 ####[facility] [address] [facility] [phone] Prothrombin timeOrdered By: Karon Corrales on 09-25-2024 PT Coag (PPP) [Time] 26.7 s High 11.7-14.9 [facility] Comment on above: Order Comment: 411.2 Performed By: #### L 300.3900 ####[facility] [address] [place] [phone] International normalized rat io (INR) calculationOrdered By: Karon Corrales on 09-22-2024 INR Coag (Bld) [Relative time] 2.5 {INR} [facility] Prothrombin Time w/INRon INR Coag (PPP) [Relative time] 2.5 {INR} Normal [facility] Comment on above: Order Comment: 411.2 Performed By: #### L 300.3900 ####[facility] [address] [place] [phone] Prothrombin timeOrdered By: Karon Corrales on 09-22-2024 PT Coag (PPP) [Time] 27.4 s High 11.7-14.9 [facility] Comment on above: Order Comment: 411.2 Performed By: #### L 300.3900 ####[facility] [address] [place], [address] International normalized rat io (INR) calculationOrdered By: Karon Corrales on 09-18-2024 INR Coag (Bld) [Relative time] 2.2 {INR} [facility] Prothrombin Time w/INRon INR Coag (PPP) [Relative time] 2.2 {INR} Normal [facility] Comment on above: Order Comment: 411.2 Performed By: #### L 300.3900 ####[facility] [address] [place], [address] PT Coag (PPP) [Time] 25.1 s High 11.7-14.9 [facility] Comment on above: Order Comment: 411.2 Performed By: #### L 300.3900 ####[facility] [address] [place], [address] Prothrombin timeOrdered By: Karon Corrales on 09-18-2024 PT Coag (PPP) [Time] 25.1 s High 11.7-14.9 [facility] International normalized rat io (INR) calculationOrdered By: Carlos Cavazos on 09-15-2024 INR Coag (Bld) [Relative time] 2.4 {INR} [facility] Prothrombin Time w/INRon INR Coag (PPP) [Relative time] 2.4 {INR} Normal [facility] Comment on above: Order Comment: 411-2 Performed By: #### L 300.3900 ####[facility] [address] [place], [address] Prothrombin timeOrdered By: Carlos Cavazos on 09-15-2024 PT Coag (PPP) [Time] 26.3 s High 11.7-14.9 [facility] Comment on above: Order Comment: 411-2 Performed By: #### L 300.3900 ####[facility] [address] [place], [address]([phone] International normalized rat io (INR) calculationOrdered By: Karon Corrales on 09-11-2024 INR Coag (Bld) [Relative time] 2.0 {INR} [facility] Prothrombin Time w/INRon INR Coag (PPP) [Relative time] 2.0 {INR} Normal [facility] Comment on above: Order Comment: 411.2 Performed By: #### L 300.3900 ####[facility] [address] [place], [place], [phone] PT Coag (PPP) [Time] 22.9 s High 11.7-14.9 [facility] Comment on above: Order Comment: 411.2 Performed By: #### L 300.3900 ####[facility] [address] [place], [place], [phone] Prothrombin timeOrdered By: Karon Corrales on 09-11-2024 PT Coag (PPP) [Time] 22.9 s High 11.7-14.9 [facility] International normalized rat io (INR) calculationOrdered By: Karon Corrales on 09-08-2024 INR Coag (Bld) [Relative time] 2.0 {INR} [facility] Prothrombin Time w/INRon INR Coag (PPP) [Relative time] 2.0 {INR} Normal [facility] Comment on above: Order Comment: 411.2 Performed By: #### L 300.3900 ####[facility] [address] [place], [address] PT Coag (PPP) [Time] 22.8 s High 11.7-14.9 [facility] Comment on above: Order Comment: 411.2 Performed By: #### L 300.3900 ####[facility] [address] [place], [address] Prothrombin timeOrdered By: Karon Corrales on 09-08-2024 PT Coag (PPP) [Time] 22.8 s High 11.7-14.9 [facility] International normalized rat io (INR) calculationOrdered By: Carlos Cavazos on 09-04-2024 INR Coag (Bld) [Relative time] 1.7 {INR} [facility] Prothrombin Time w/INRon INR Coag (PPP) [Relative time] 1.7 {INR} Normal [facility] Comment on above: Order Comment: 411-2 Performed By: #### L 300.3900 ####[facility] [address] [place], [address] PT Coag (PPP) [Time] 20.8 s High 11.7-14.9 [facility] Comment on above: Order Comment: 411-2 Performed By: #### L 300.3900 ####[facility] [address] [place], [address] Prothrombin timeOrdered By: Carlos Cavazos on 09-04-2024 PT Coag (PPP) [Time] 20.8 s High 11.7-14.9 [facility] International normalized rat io (INR) calculationOrdered By: Carlos Cavazos on 09-01-2024 INR Coag (Bld) [Relative time] 2.9 {INR} [facility] Prothrombin Time w/INRon INR Coag (PPP) [Relative time] 2.9 {INR} Normal [facility] Comment on above: Order Comment: 411-2 Performed By: #### L 300.3900 ####[facility] [address] [place], [address] PT Coag (PPP) [Time] 30.7 s High 11.7-14.9 [facility] Comment on above: Order Comment: 411-2 Performed By: #### L 300.3900 ####[facility] [address] [place], [address] Prothrombin timeOrdered By: Carlos Cavazos on 09-01-2024 PT Coag (PPP) [Time] 30.7 s High 11.7-14.9 [facility] International normalized rat io (INR) calculationOrdered By: Carlos Cavazos on 08-28-2024 INR Coag (Bld) [Relative time] 2.4 {INR} [facility] Prothrombin Time w/INRon INR Coag (PPP) [Relative time] 2.4 {INR} Normal [facility] Comment on above: Order Comment: 411-2 Performed By: #### L 300.3900 ####[facility] [address] [place], [place], [phone] Prothrombin timeOrdered By: Carlos Cavazos on 08-28-2024 PT Coag (PPP) [Time] 26.7 s High 11.7-14.9 [facility] Comment on above: Order Comment: 411-2 Performed By: #### L 300.3900 ####[facility] [address] [place], [place], [phone] International normalized rat io (INR) calculationOrdered By: Karon Corrales on 08-25-2024 INR Coag (Bld) [Relative time] 1.8 {INR} [facility] Prothrombin Time w/INRon INR Coag (PPP) [Relative time] 1.8 {INR} Normal [facility] Comment on above: Order Comment: 411.2 Performed By: #### L 300.3900 ####[facility] [address] [place], [place], [phone] PT Coag (PPP) [Time] 21.6 s High 11.7-14.9 [facility] Comment on above: Order Comment: 411.2 Performed By: #### L 300.3900 ####[facility] [address] [place], [place], [phone] Prothrombin timeOrdered By: Karon Corrales on 08-25-2024 PT Coag (PPP) [Time] 21.6 s High 11.7-14.9 [facility] International normalized rat io (INR) calculationOrdered By: Karon Corrales on 08-21-2024 INR Coag (Bld) [Relative time] 1.7 {INR} [facility] PSA, total screeningOrdered By: Karon Corrales on 08-21-2024 Prostate Specific Antigen Screen 0.52 ng/mL 0.02-4.00 [facility] Comment on above: This test was perfor [...] 08-21-2024 PSA,TOT SCREEN 0.52 ng/mL Normal 0.02-4.00 [facility] Comment on above: Order Comment: 411.2 Result [...] values. Performed By: #### L 501.9910, L300.3900 ####[facility] [address] [place], [address] Prothrombin Time w/INRon INR Coag (PPP) [Relative time] 1.7 {INR} Normal [facility] Comment on above: Order Comment: 411.2 Performed By: #### L 501.9910, L300.3900 ####[facility] [address] [place], [address] Prothrombin timeOrdered By: Karon Corrales on 08-21-2024 PT Coag (PPP) [Time] 20.1 s High 11.7-14.9 [facility] Comment on above: Order Comment: 411.2 Performed By: #### L 501.9910, L300.3900 ####[facility] [address] [place], [address] International normalized rat io (INR) calculationOrdered By: Karon Corrales on 08-18-2024 INR Coag (Bld) [Relative time] 3.0 {INR} [facility] Prothrombin Time w/INRon INR Coag (PPP) [Relative time] 3.0 {INR} Normal [facility] Comment on above: Order Comment: 411.2 Performed By: #### L 300.3900 ####[facility] [address] [place], [address] PT Coag (PPP) [Time] 31.4 s High 11.7-14.9 [facility] Comment on above: Order Comment: 411.2 Performed By: #### L 300.3900 ####[facility] [address] [place], [address] Prothrombin timeOrdered By: Karon Corrales on 08-18-2024 PT Coag (PPP) [Time] 31.4 s High 11.7-14.9 [facility] International normalized rat io (INR) calculationOrdered By: Karon Corrales on 08-14-2024 INR Coag (Bld) [Relative time] 2.4 {INR} [facility] Prothrombin Time w/INRon INR Coag (PPP) [Relative time] 2.4 {INR} Normal [facility] Comment on above: Order Comment: 411.2 Performed By: #### L 300.3900 ####[facility] [address] [place], [address] PT Coag (PPP) [Time] 26.6 s High 11.7-14.9 [facility] Comment on above: Order Comment: 411.2 Performed By: #### L 300.3900 ####[facility] [address] [place], [address] Prothrombin timeOrdered By: Karon Corrales on 08-14-2024 PT Coag (PPP) [Time] 26.6 s High 11.7-14.9 [facility] International normalized rat io (INR) calculationOrdered By: Karon Corrales on 08-11-2024 INR Coag (Bld) [Relative time] 3.1 {INR} [facility] Prothrombin Time w/INRon INR Coag (PPP) [Relative time] 3.1 {INR} Normal [facility] Comment on above: Order Comment: 411.2 Performed By: #### L 300.3900 ####[facility] [address] [place], [place], [phone](194) PT Coag (PPP) [Time] 32.4 s High 11.7-14.9 [facility] Comment on above: Order Comment: 411.2 Performed By: #### L 300.3900 ####[facility] [address] [place], [address] Prothrombin timeOrdered By: Karon Corrales on 08-11-2024 PT Coag (PPP) [Time] 32.4 s High 11.7-14.9 [facility] International normalized rat io (INR) calculationOrdered By: Carlos Cavazos on 08-07-2024 INR Coag (Bld) [Relative time] 2.8 {INR} [facility] Prothrombin Time w/INRon INR Coag (PPP) [Relative time] 2.8 {INR} Normal [facility] Comment on above: Order Comment: 411-2 Performed By: #### L 300.3900 ####[facility] [address] [place], [place], [phone](407) PT Coag (PPP) [Time] 30.3 s High 11.7-14.9 [facility] Comment on above: Order Comment: 411-2 Performed By: #### L 300.3900 ####[facility] [address] [place], [place], [phone](046) Prothrombin timeOrdered By: Carlos Cavazos on 08-07-2024 PT Coag (PPP) [Time] 30.3 s High 11.7-14.9 [facility] International normalized rat io (INR) calculationOrdered By: Carlos Cavazos on 08-04-2024 INR Coag (Bld) [Relative time] 1.9 {INR} [facility] Prothrombin Time w/INRon INR Coag (PPP) [Relative time] 1.9 {INR} Normal [facility] Comment on above: Order Comment: 411-2 Performed By: #### L 300.3900 ####[facility] [address] [place], [place], [phone](043 PT Coag (PPP) [Time] 22.1 s High 11.7-14.9 [facility] Comment on above: Order Comment: 411-2 Performed By: #### L 300.3900 ####[facility] [address] [place], [address] Prothrombin timeOrdered By: Carlos Cavazos on 08-04-2024 PT Coag (PPP) [Time] 22.1 s High 11.7-14.9 [facility] International normalized rat io (INR) calculationOrdered By: Karon Corrales on 07-31-2024 INR Coag (Bld) [Relative time] 3.2 {INR} [facility] Prothrombin Time w/INRon INR Coag (PPP) [Relative time] 3.2 {INR} Normal [facility] Comment on above: Order Comment: 411.2 Performed By: #### L 300.3900 ####[facility] [address] [place], [address] PT Coag (PPP) [Time] 33.5 s High 11.7-14.9 [facility] Comment on above: Order Comment: 411.2 Performed By: #### L 300.3900 ####[facility] [address] [place], [address] Prothrombin timeOrdered By: Karon Corrales on 07-31-2024 PT Coag (PPP) [Time] 33.5 s High 11.7-14.9 [facility] International normalized rat io (INR) calculationOrdered By: Karon Corrales on 07-28-2024 INR Coag (Bld) [Relative time] 2.7 {INR} [facility] Prothrombin Time w/INRon INR Coag (PPP) [Relative time] 2.7 {INR} Normal [facility] Comment on above: Order Comment: 411.2 Performed By: #### L 300.3900 ####[facility] [address] [place], [place], [phone] PT Coag (PPP) [Time] 29.6 s High 11.7-14.9 [facility] Comment on above: Order Comment: 411.2 Performed By: #### L 300.3900 ####[facility] [address] [place], [place], [phone] Prothrombin timeOrdered By: Karon Corrales on 07-28-2024 PT Coag (PPP) [Time] 29.6 s High 11.7-14.9 [facility] International normalized rat io (INR) calculationOrdered By: Carlos Cavazos on 07-25-2024 INR Coag (Bld) [Relative time] 3.0 {INR} [facility] Prothrombin Time w/INRon INR Coag (PPP) [Relative time] 3.0 {INR} Normal [facility] Comment on above: Order Comment: 411-2 Performed By: #### L 300.3900 ####[facility] [address] [place], [place], [phone] Prothrombin timeOrdered By: Carlos Cavazos on 07-25-2024 PT Coag (PPP) [Time] 32.1 s High 11.7-14.9 [facility] Comment on above: Order Comment: 411-2 Performed By: #### L 300.3900 ####[facility] [address] [place], [address] International normalized rat io (INR) calculationOrdered By: Karon Corrales on 07-24-2024 INR Coag (Bld) [Relative time] 3.4 {INR} [facility] Prothrombin Time w/INRon INR Coag (PPP) [Relative time] 3.4 {INR} Normal [facility] Comment on above: Order Comment: 411.2 Performed By: #### L 300.3900 ####[facility] [address] [place], [place], [phone] Prothrombin timeOrdered By: Karon Corrales on 07-24-2024 PT Coag (PPP) [Time] 35.4 s High 11.7-14.9 [facility] Comment on above: Order Comment: 411.2 Performed By: #### L 300.3900 ####[facility] [address] [place], [place], [address] International normalized rat io (INR) calculationOrdered By: Karon Corrales on 07-21-2024 INR Coag (Bld) [Relative time] 1.6 {INR} [facility] Prothrombin Time w/INRon INR Coag (PPP) [Relative time] 1.6 {INR} Normal [facility] Comment on above: Order Comment: 411.2 Performed By: #### L 300.3900 ####[facility] [address] [place], [place], [address] PT Coag (PPP) [Time] 19.6 s High 11.7-14.9 [facility] Comment on above: Order Comment: 411.2 Performed By: #### L 300.3900 ####[facility] [address] [place], [place], [phone] Prothrombin timeOrdered By: Karon Corrales on 07-21-2024 PT Coag (PPP) [Time] 19.6 s High 11.7-14.9 [facility] International normalized rat io (INR) calculationOrdered By: Karon Corrales on 07-17-2024 INR Coag (Bld) [Relative time] 2.9 {INR} [facility] Prothrombin Time w/INRon INR Coag (PPP) [Relative time] 2.9 {INR} Normal [facility] Comment on above: Order Comment: 411.2 Performed By: #### L 300.3900 ####[facility] [address] [place], [place], [phone] PT Coag (PPP) [Time] 31.1 s High 11.7-14.9 [facility] Comment on above: Order Comment: 411.2 Performed By: #### L 300.3900 ####[facility] [address], [address] Prothrombin timeOrdered By: Karon Corrales on 07-17-2024 PT Coag (PPP) [Time] 31.1 s High 11.7-14.9 [facility] International normalized rat io (INR) calculationOrdered By: Carlos Cavazos on 07-14-2024 INR Coag (Bld) [Relative time] 2.5 {INR} [facility] Prothrombin Time w/INRon INR Coag (PPP) [Relative time] 2.5 {INR} Normal [facility] Comment on above: Order Comment: 411-2 Performed By: #### L 300.3900 ####[facility] [address] [place], [place], [phone] PT Coag (PPP) [Time] 27.5 s High 11.7-14.9 [facility] Comment on above: Order Comment: 411-2 Performed By: #### L 300.3900 ####[facility] [address] [place], [address] Prothrombin timeOrdered By: Carlos Cavazos on 07-14-2024 PT Coag (PPP) [Time] 27.5 s High 11.7-14.9 [facility] International normalized rat io (INR) calculationOrdered By: Carlos Cavazos on 07-11-2024 INR Coag (Bld) [Relative time] 2.5 {INR} [facility] Prothrombin Time w/INRon INR Coag (PPP) [Relative time] 2.5 {INR} Normal [facility] Comment on above: Performed By: #### L 300.3900 ####[facility] [address] [place], [place], [phone] PT Coag (PPP) [Time] 27.7 s High 11.7-14.9 [facility] Comment on above: Performed By: #### L 300.3900 ####[facility] [address] [place], [address] Prothrombin timeOrdered By: Carlos Cavazos on 07-11-2024 PT Coag (PPP) [Time] 27.7 s High 11.7-14.9 [facility] Prothrombin Time w/INRon INR Normal [facility] Comment on above: Order Comment: 411.2 Result Comment: QNS TUBE NOT FILLED Performed By: #### L 300.3900 ####[facility] [address] [place], [address] PROTIME Normal 11.7-14.9 [facility] Comment on above: Order Comment: 411.2 Result Comment: QNS TUBE NOT FILLED Performed By: #### L 300.3900 ####[facility] [address] [place], [place], [phone] International normalized rat io (INR) calculationOrdered By: Kvng Crisostomo on 07-07-2024 INR Coag (Bld) [Relative time] 2.5 {INR} [facility] Prothrombin Time w/INRon INR Coag (PPP) [Relative time] 2.5 {INR} Normal [facility] Comment on above: Order Comment: 411.2 Performed By: #### L 300.3900 ####[facility] [address] [place], [address] PT Coag (PPP) [Time] 27.2 s High 11.7-14.9 [facility] Comment on above: Order Comment: 411.2 Performed By: #### L 300.3900 ####[facility] [address] [place], [address] Prothrombin timeOrdered By: Kvng Crisostomo on 07-07-2024 PT Coag (PPP) [Time] 27.2 s High 11.7-14.9 [facility] International normalized rat io (INR) calculationOrdered By: Babrocio Crisostomo on 07-03-2024 INR Coag (Bld) [Relative time] 2.5 {INR} [facility] Prothrombin Time w/INRon INR Coag (PPP) [Relative time] 2.5 {INR} Normal [facility] Comment on above: Order Comment: 411.2 Performed By: #### L 300.3900 ####[facility] [address] [place], [address] PT Coag (PPP) [Time] 27.2 s High 11.7-14.9 [facility] Comment on above: Order Comment: 411.2 Performed By: #### L 300.3900 ####[facility] [address], [address] Prothrombin timeOrdered By: Kvng Crisostomo on 07-03-2024 PT Coag (PPP) [Time] 27.2 s High 11.7-14.9 [facility] International normalized rat io (INR) calculationOrdered By: Babrocio Crisostomo on 06-30-2024 INR Coag (Bld) [Relative time] 2.4 {INR} [facility] Prothrombin Time w/INRon INR Coag (PPP) [Relative time] 2.4 {INR} Normal [facility] Comment on above: Order Comment: 411.2 Performed By: #### L 300.3900 ####[facility] [address] [place], [place], [phone] PT Coag (PPP) [Time] 26.8 s High 11.7-14.9 [facility] Comment on above: Order Comment: 411.2 Performed By: #### L 300.3900 ####[facility] [address] [place], [place], [phone] Prothrombin timeOrdered By: Kvng Crisostomo on 06-30-2024 PT Coag (PPP) [Time] 26.8 s High 11.7-14.9 [facility] International normalized rat io (INR) calculationOrdered By: Kvng Crisostomo on 06-26-2024 INR Coag (Bld) [Relative time] 2.5 {INR} [facility] Prothrombin Time w/INRon INR Coag (PPP) [Relative time] 2.5 {INR} Normal [facility] Comment on above: Order Comment: 411.2 Performed By: #### L 300.3900 ####[facility] [address] [place], [place], [phone] PT Coag (PPP) [Time] 27.5 s High 11.7-14.9 [facility] Comment on above: Order Comment: 411.2 Performed By: #### L 300.3900 ####[facility] [address] [place], [place], [phone] Prothrombin timeOrdered By: Kvng Crisostomo on 06-26-2024 PT Coag (PPP) [Time] 27.5 s High 11.7-14.9 [facility] International normalized rat io (INR) calculationOrdered By: Carlos Cavazos on 06-23-2024 INR Coag (Bld) [Relative time] 2.8 {INR} [facility] Prothrombin Time w/INRon INR Coag (PPP) [Relative time] 2.8 {INR} Normal [facility] Comment on above: Order Comment: 411-2 Performed By: #### L 300.3900 ####[facility] [address] [place], [place], [phone] PT Coag (PPP) [Time] 29.7 s High 11.7-14.9 [facility] Comment on above: Order Comment: 411-2 Performed By: #### L 300.3900 ####[facility] [address] [place], [place], [phone]([phone] Prothrombin timeOrdered By: Carlos Cavazos on 06-23-2024 PT Coag (PPP) [Time] 29.7 s High 11.7-14.9 [facility] International normalized rat io (INR) calculationOrdered By: Kvng Crisostomo on 06-19-2024 INR Coag (Bld) [Relative time] 2.6 {INR} [facility] Prothrombin Time w/INRon INR Coag (PPP) [Relative time] 2.6 {INR} Normal [facility] Comment on above: Order Comment: 411.2 Performed By: #### L 300.3900 ####[facility] [address] [place], [address] PT Coag (PPP) [Time] 28.6 s High 11.7-14.9 [facility] Comment on above: Order Comment: 411.2 Performed By: #### L 300.3900 ####[facility] [address] [place], [address] Prothrombin timeOrdered By: Kvng Crisostomo on 06-19-2024 PT Coag (PPP) [Time] 28.6 s High 11.7-14.9 [facility] International normalized rat io (INR) calculationOrdered By: Kvng Crisostomo on 06-16-2024 INR Coag (Bld) [Relative time] 2.5 {INR} [facility] Prothrombin Time w/INRon INR Coag (PPP) [Relative time] 2.5 {INR} Normal [facility] Comment on above: Order Comment: 411.2 Performed By: #### L 300.3900 ####[facility] [address] [place], [address] PT Coag (PPP) [Time] 27.3 s High 11.7-14.9 [facility] Comment on above: Order Comment: 411.2 Performed By: #### L 300.3900 ####[facility] [address] [place], [address] Prothrombin timeOrdered By: Kvng Crisostomo on 06-16-2024 PT Coag (PPP) [Time] 27.3 s High 11.7-14.9 [facility] International normalized rat io (INR) calculationOrdered By: Kvng Crisostomo on 06-12-2024 INR Coag (Bld) [Relative time] 2.1 {INR} [facility] Prothrombin Time w/INRon INR Coag (PPP) [Relative time] 2.1 {INR} Normal [facility] Comment on above: Order Comment: 411.2 Performed By: #### L 300.3900 ####[facility] [address] [place], [address] PT Coag (PPP) [Time] 24.0 s High 11.7-14.9 [facility] Comment on above: Order Comment: 411.2 Performed By: #### L 300.3900 ####[facility] [address] [place], [address] Prothrombin timeOrdered By: Kvng Crisostomo on 06-12-2024 PT Coag (PPP) [Time] 24.0 s High 11.7-14.9 [facility] [employer] normalized rat io (INR) calculationOrdered By: Carlos Cavazos on 06-09-2024 INR Coag (Bld) [Relative time] 1.5 {INR} [facility] Prothrombin Time w/INRon INR Coag (PPP) [Relative time] 1.5 {INR} Normal [facility] Comment on above: Order Comment: 411-2 Performed By: #### L 300.3900 ####[facility] [address] [place], [address] PT Coag (PPP) [Time] 18.0 s High 11.7-14.9 [facility] Comment on above: Order Comment: 411-2 Performed By: #### L 300.3900 ####[facility] [address] [place], [address] Prothrombin timeOrdered By: Carlos Cavazos on 06-09-2024 PT Coag (PPP) [Time] 18.0 s High 11.7-14.9 [facility] International normalized rat io (INR) calculationOrdered By: Kvng Crisostomo on 06-05-2024 INR Coag (Bld) [Relative time] 2.8 {INR} [facility] Prothrombin Time w/INRon INR Coag (PPP) [Relative time] 2.8 {INR} Normal [facility] Comment on above: Order Comment: 411.2 Performed By: #### L 300.3900 ####[facility] [address] [place], [address] PT Coag (PPP) [Time] 30.3 s High 11.7-14.9 [facility] Comment on above: Order Comment: 411.2 Performed By: #### L 300.3900 ####[facility] [address] [place], [address] Prothrombin timeOrdered By: Kvng Crisostomo on 06-05-2024 PT Coag (PPP) [Time] 30.3 s High 11.7-14.9 [facility] [employer] normalized rat io (INR) calculationOrdered By: Kvng Crisostomo on 06-02-2024 INR Coag (Bld) [Relative time] 2.6 {INR} [facility] Prothrombin Time w/INRon INR Coag (PPP) [Relative time] 2.6 {INR} Normal [facility] Comment on above: Order Comment: 411.2 Performed By: #### L 300.3900 ####[facility] [address], [address] PT Coag (PPP) [Time] 28.6 s High 11.7-14.9 [facility] Comment on above: Order Comment: 411.2 Performed By: #### L 300.3900 ####[facility] [address] [place], [address] Prothrombin timeOrdered By: Kvng Crisostomo on 06-02-2024 PT Coag (PPP) [Time] 28.6 s High 11.7-14.9 [facility] normalized rat io (INR) calculationOrdered By: Kvng Crisostomo on 05-29-2024 INR Coag (Bld) [Relative time] 2.5 {INR} [facility] Prothrombin Time w/INRon INR Coag (PPP) [Relative time] 2.5 {INR} Normal [facility] Comment on above: Order Comment: 411.2 Performed By: #### L 300.3900 ####[facility] [address] [place], [address] PT Coag (PPP) [Time] 27.7 s High 11.7-14.9 [facility] Comment on above: Order Comment: 411.2 Performed By: #### L 300.3900 ####[facility] [address] [place], [address] Prothrombin timeOrdered By: Kvng Crisostomo on 05-29-2024 PT Coag (PPP) [Time] 27.7 s High 11.7-14.9 [facility] normalized rat io (INR) calculationOrdered By: Carlos Cavazos on 05-26-2024 INR Coag (Bld) [Relative time] 2.2 {INR} [facility] Prothrombin Time w/INRon INR Coag (PPP) [Relative time] 2.2 {INR} Normal [facility] Comment on above: Order Comment: 411-2 Performed By: #### L 300.3900 ####[facility] [address] [place], [address] PT Coag (PPP) [Time] 24.5 s High 11.7-14.9 [facility] Comment on above: Order Comment: 411-2 Performed By: #### L 300.3900 ####[facility] [address] [place], [address] Prothrombin timeOrdered By: Carlos Cavazos on 05-26-2024 PT Coag (PPP) [Time] 24.5 s High 11.7-14.9 [facility] normalized rat io (INR) calculationOrdered By: Kvng Crisostomo on 05-22-2024 INR Coag (Bld) [Relative time] 2.8 {INR} [facility] Prothrombin Time w/INRon INR Coag (PPP) [Relative time] 2.8 {INR} Normal [facility] Comment on above: Order Comment: 411.2 Performed By: #### L 300.3900 ####[facility] [address] [place], [address] PT Coag (PPP) [Time] 30.3 s High 11.7-14.9 [facility] Comment on above: Order Comment: 411.2 Performed By: #### L 300.3900 ####[facility] [address] [place], [address] Prothrombin timeOrdered By: Kvng Crisostomo on 05-22-2024 PT Coag (PPP) [Time] 30.3 s High 11.7-14.9 [facility] normalized rat io (INR) calculationOrdered By: Kvng Crisostomo on 05-20-2024 INR Coag (Bld) [Relative time] 4.0 {INR} High [facility] Comment on above: CRITICAL VALUE CASEY D TO [id number]/14/25 0828 Diana Mattson.RESULTS READ BACK BY SAME. Prothrombin Time w/INRon INR Coag (PPP) [Relative time] 4.0 {INR} Invalid Interpretation Code [facility] Comment on above: Order Comment: 411.2 Result Comment: CRIT ICAL VALUE CALLED TO JMZTYDDCU72/14/25 08 Diana Mattson.RESULTS READ BACK BY SAME. Performed By: #### L 300.3900 ####[facility] [address] [place], [address] PT Coag (PPP) [Time] 39.9 s High 11.7-14.9 [facility] Comment on above: Order Comment: 411.2 Performed By: #### L 300.3900 ####[facility] [address] [place], [place], [phone] Prothrombin timeOrdered By: Kvng Crisostomo on 05-20-2024 PT Coag (PPP) [Time] 39.9 s High 11.7-14.9 [facility] normalized rat io (INR) calculationOrdered By: Kvng Crisostomo on 05-19-2024 INR Coag (Bld) [Relative time] 3.4 {INR} [facility] Prothrombin Time w/INRon INR Coag (PPP) [Relative time] 3.4 {INR} Normal [facility] Comment on above: Order Comment: 411.2 Performed By: #### L 300.3900 ####[facility] [address] [place], [address] PT Coag (PPP) [Time] 35.4 s High 11.7-14.9 [facility] Comment on above: Order Comment: 411.2 Performed By: #### L 300.3900 ####[facility] [address] [place], [place], [phone](018) Prothrombin timeOrdered By: Kvng Crisostomo on 01-13-2025 PT Coag (PPP) [Time] 35.4 s High 11.7-14.9 [facility] normalized rat io (INR) calculationOrdered By: Kvng Crisostomo on 05-15-2024 INR Coag (Bld) [Relative time] 2.6 {INR} [facility] Prothrombin Time w/INRon INR Coag (PPP) [Relative time] 2.6 {INR} Normal [facility] Comment on above: Order Comment: 411.2 Performed By: #### L 300.3900 ####[facility] [address] [place], [place], [phone]) PT Coag (PPP) [Time] 28.7 s High 11.7-14.9 [facility] Comment on above: Order Comment: 411.2 Performed By: #### L 300.3900 ####[facility] [address] [place], [place], [phone]([phone]) Prothrombin timeOrdered By: Kvng Crisostomo on 05-15-2024 PT Coag (PPP) [Time] 28.7 s High 11.7-14.9 [facility] normalized rat io (INR) calculationOrdered By: Carlos Cavazos on 05-12-2024 INR Coag (Bld) [Relative time] 2.1 {INR} [facility] Prothrombin Time w/INRon INR Coag (PPP) [Relative time] 2.1 {INR} Normal [facility] Comment on above: Order Comment: 411-2 Performed By: #### L 300.3900 ####[facility] [address] [place], [address] PT Coag (PPP) [Time] 24.1 s High 11.7-14.9 [facility] Comment on above: Order Comment: 411-2 Performed By: #### L 300.3900 ####[facility] [address] [place], [place], [phone] Prothrombin timeOrdered By: Carlos Cavazos on 05-12-2024 PT Coag (PPP) [Time] 24.1 s High 11.7-14.9 [facility] normalized rat io (INR) calculationOrdered By: Kvng Crisostomo on 05-09-2024 INR Coag (Bld) [Relative time] 3.4 {INR} [facility] Prothrombin Time w/INRon INR Coag (PPP) [Relative time] 3.4 {INR} Normal [facility] Comment on above: Order Comment: 411.2 Performed By: #### L 300.3900 ####[facility] [address] [place], [address] PT Coag (PPP) [Time] 35.4 s High 11.7-14.9 [facility] Comment on above: Order Comment: 411.2 Performed By: #### L 300.3900 ####[facility] [address] [place], [place], [phone]([phone] Prothrombin timeOrdered By: Kvng Crisostomo on 05-09-2024 PT Coag (PPP) [Time] 35.4 s High 11.7-14.9 [facility] normalized rat io (INR) calculationOrdered By: Kvng Crisostomo on 05-08-2024 INR Coag (Bld) [Relative time] 4.1 {INR} High [facility] Comment on above: CRITICAL VALUE CASEY D TO [facility]05/08/24 09 Karen Jamison.RESULTS READ BACK BY SAME. Prothrombin Time w/INRon INR Coag (PPP) [Relative time] 4.1 {INR} Invalid Interpretation Code [facility] Comment on above: Order Comment: 411.2 Result Comment: CRIT ICAL VALUE CALLED TO [facility]05/08/24 0950 Karen Jamison.RESULTS READ BACK BY SAME. Performed By: #### L 300.3900 ####[facility] [address] [place], [address] PT Coag (PPP) [Time] 40.8 s High 11.7-14.9 [facility] Comment on above: Order Comment: 411.2 Performed By: #### L 300.3900 ####[facility] [address] [place], [address] Prothrombin timeOrdered By: Kvng Crisostomo on 05-08-2024 PT Coag (PPP) [Time] 40.8 s High 11.7-14.9 [facility] normalized rat io (INR) calculationOrdered By: Kvng Crisostomo on 05-05-2024 INR Coag (Bld) [Relative time] 3.2 {INR} [facility] Prothrombin Time w/INRon INR Coag (PPP) [Relative time] 3.2 {INR} Normal [facility] Comment on above: Order Comment: 411.2 Performed By: #### L 300.3900 ####[facility] [address] [place], [address] PT Coag (PPP) [Time] 32.5 s High 11.7-14.9 [facility] Comment on above: Order Comment: 411.2 Performed By: #### L 300.3900 ####[facility] [address], [address] Prothrombin timeOrdered By: Kvng Crisostomo on 05-05-2024 PT Coag (PPP) [Time] 32.5 s High 11.7-14.9 [facility] normalized rat io (INR) calculationOrdered By: Kvng Crisostomo on 05-01-2024 INR Coag (Bld) [Relative time] 3.1 {INR} [facility] Prothrombin Time w/INRon INR Coag (PPP) [Relative time] 3.1 {INR} Normal [facility] Comment on above: Order Comment: 411.2 Performed By: #### L 300.3900 ####[facility] [address] [place], [address] PT Coag (PPP) [Time] 31.9 s High 11.7-14.9 [facility] Comment on above: Order Comment: 411.2 Performed By: #### L 300.3900 ####[facility] [address] [place], [place], [phone] Prothrombin timeOrdered By: Kvng Crisostomo on 05-01-2024 PT Coag (PPP) [Time] 31.9 s High 11.7-14.9 [facility] normalized rat io (INR) calculationOrdered By: Carlos Cavazos on 04-28-2024 INR Coag (Bld) [Relative time] 2.6 {INR} [facility] Prothrombin Time w/INRon INR Coag (PPP) [Relative time] 2.6 {INR} Normal [facility] Comment on above: Order Comment: 411-2 Performed By: #### L 300.3900 ####[facility] [address] [place], [address] PT Coag (PPP) [Time] 27.3 s High 11.7-14.9 [facility] Comment on above: Order Comment: 411-2 Performed By: #### L 300.3900 ####[facility] [address] [place], [place], [phone] Prothrombin timeOrdered By: Carlos Cavazos on 04-28-2024 PT Coag (PPP) [Time] 27.3 s High 11.7-14.9 [facility] normalized rat io (INR) calculationOrdered By: Kvng Crisostomo on 04-24-2024 INR Coag (Bld) [Relative time] 3.6 {INR} [facility] Prothrombin Time w/INRon INR Coag (PPP) [Relative time] 3.6 {INR} Normal [facility] Comment on above: Order Comment: 411.2 Performed By: #### L 300.3900 ####[facility] [address] [place], [address] PT Coag (PPP) [Time] 35.6 s High 11.7-14.9 [facility] Comment on above: Order Comment: 411.2 Performed By: #### L 300.3900 ####[facility] [address] [place], [address] Prothrombin timeOrdered By: Kvng Crisostomo on 04-24-2024 PT Coag (PPP) [Time] 35.6 s High 11.7-14.9 [facility] normalized rat io (INR) calculationOrdered By: Carlos Cavazos on 04-21-2024 INR Coag (Bld) [Relative time] 2.8 {INR} [facility] Prothrombin Time w/INRon INR Coag (PPP) [Relative time] 2.8 {INR} Normal [facility] Comment on above: Order Comment: 411-2 Performed By: #### L 300.3900 ####[facility] [address] [place], [address] PT Coag (PPP) [Time] 29.4 s High 11.7-14.9 [facility] Comment on above: Order Comment: 411-2 Performed By: #### L 300.3900 ####[facility] [address], [address] Prothrombin timeOrdered By: Carlos Cavazos on 04-21-2024 PT Coag (PPP) [Time] 29.4 s High 11.7-14.9 [facility] normalized rat io (INR) calculationOrdered By: Kvng Crisostomo on 04-17-2024 INR Coag (Bld) [Relative time] 3.1 {INR} [facility] Prothrombin Time w/INRon INR Coag (PPP) [Relative time] 3.1 {INR} Normal [facility] Comment on above: Order Comment: 411.2 Performed By: #### L 300.3900 ####[facility] [address] [place], [place], [phone] Prothrombin timeOrdered By: Kvng Crisostomo on 04-17-2024 PT Coag (PPP) [Time] 31.3 s High 11.7-14.9 [facility] Comment on above: Order Comment: 411.2 Performed By: #### L 300.3900 ####[facility] [address] [place], [place], [phone] International normalized rat io (INR) calculationOrdered By: Kvng Crisostomo on 04-14-2024 INR Coag (Bld) [Relative time] 3.3 {INR} [facility] Prothrombin Time w/INRon INR Coag (PPP) [Relative time] 3.3 {INR} Normal [facility] Comment on above: Order Comment: 411.2 Performed By: #### L 300.3900 ####[facility] [address] [place], [place], [phone] PT Coag (PPP) [Time] 33.2 s High 11.7-14.9 [facility] Comment on above: Order Comment: 411.2 Performed By: #### L 300.3900 ####[facility] [address] [place], [place], [phone] Prothrombin timeOrdered By: Kvng Crisostomo on 04-14-2024 PT Coag (PPP) [Time] 33.2 s High 11.7-14.9 [facility] normalized rat io (INR) calculationOrdered By: Kvng Crisostomo on 04-10-2024 INR Coag (Bld) [Relative time] 2.8 {INR} [facility] Prothrombin Time w/INRon INR Coag (PPP) [Relative time] 2.8 {INR} Normal [facility] Comment on above: Order Comment: 411.2 Performed By: #### L 300.3900 ####[facility] [address] [place], [address] PT Coag (PPP) [Time] 29.2 s High 11.7-14.9 [facility] Comment on above: Order Comment: 411.2 Performed By: #### L 300.3900 ####[facility] [address] [place], [place], [phone] Prothrombin timeOrdered By: Kvng Crisostomo on 04-10-2024 PT Coag (PPP) [Time] 29.2 s High 11.7-14.9 [facility] normalized rat io (INR) calculationOrdered By: Carlos Cavazos on 04-07-2024 INR Coag (Bld) [Relative time] 2.7 {INR} [facility] Prothrombin Time w/INRon INR Coag (PPP) [Relative time] 2.7 {INR} Normal [facility] Comment on above: Order Comment: 411-2 Performed By: #### L 300.3900 ####[facility] [address] [place], [address] PT Coag (PPP) [Time] 28.1 s High 11.7-14.9 [facility] Comment on above: Order Comment: 411-2 Performed By: #### L 300.3900 ####[facility] [address] [place], [address] Prothrombin timeOrdered By: Carlos Cavazos on 04-07-2024 PT Coag (PPP) [Time] 28.1 s High 11.7-14.9 [facility] normalized rat io (INR) calculationOrdered By: Kvng Crisostomo on 04-04-2024 INR Coag (Bld) [Relative time] 2.8 {INR} [facility] Prothrombin Time w/INRon INR Coag (PPP) [Relative time] 2.8 {INR} Normal [facility] Comment on above: Order Comment: 411.2 Performed By: #### L 300.3900 ####[facility] [address], [address] PT Coag (PPP) [Time] 28.9 s High 11.7-14.9 [facility] Comment on above: Order Comment: 411.2 Performed By: #### L 300.3900 ####[facility] [address] [place], [address] Prothrombin timeOrdered By: Kvng Crisostomo on 04-04-2024 PT Coag (PPP) [Time] 28.9 s High 11.7-14.9 [facility] normalized rat io (INR) calculationOrdered By: Carlos Cavazos on 03-31-2024 INR Coag (Bld) [Relative time] 2.6 {INR} [facility] Prothrombin Time w/INRon INR Coag (PPP) [Relative time] 2.6 {INR} Normal [facility] Comment on above: Order Comment: 411-2 Performed By: #### L 300.3900 ####[facility] [address] [place], [address] PT Coag (PPP) [Time] 27.3 s High 11.7-14.9 [facility] Comment on above: Order Comment: 411-2 Performed By: #### L 300.3900 ####[facility] [address], [address] Prothrombin timeOrdered By: Carlos Cavazos on 03-31-2024 PT Coag (PPP) [Time] 27.3 s High 11.7-14.9 [facility] normalized rat io (INR) calculationOrdered By: [employer] on 03-27-2024 INR Coag (Bld) [Relative time] 2.2 {INR} [facility] Prothrombin Time w/INRon INR Coag (PPP) [Relative time] 2.2 {INR} Normal [facility] Comment on above: Order Comment: 411.2 Performed By: #### L 300.3900 ####[facility] [address] [place], [address] PT Coag (PPP) [Time] 24.3 s High 11.7-14.9 [facility] Comment on above: Order Comment: 411.2 Performed By: #### L 300.3900 ####[facility] [address] [place], [place], [phone] Prothrombin timeOrdered By: [employer] on 03-27-2024 PT Coag (PPP) [Time] 24.3 s High 11.7-14.9 [facility] normalized rat io (INR) calculationOrdered By: Kvng Crisostomo on 03-24-2024 INR Coag (Bld) [Relative time] 1.8 {INR} [facility] Prothrombin Time w/INRon INR Coag (PPP) [Relative time] 1.8 {INR} Normal [facility] Comment on above: Order Comment: 411.2 Performed By: #### L 300.3900 ####[facility] [address] [place], [address] PT Coag (PPP) [Time] 20.7 s High 11.7-14.9 [facility] Comment on above: Order Comment: 411.2 Performed By: #### L 300.3900 ####[facility] [address] [place], [place], [phone]([phone] Prothrombin timeOrdered By: Kvng Crisostomo on 03-24-2024 PT Coag (PPP) [Time] 20.7 s High 11.7-14.9 [facility] normalized rat io (INR) calculationOrdered By: [employer] on 03-20-2024 INR Coag (Bld) [Relative time] 1.8 {INR} [facility] Prothrombin Time w/INRon INR Coag (PPP) [Relative time] 1.8 {INR} Normal [facility] Comment on above: Order Comment: 411.2 Performed By: #### L 300.3900 ####[facility] [address] [place], [place], [phone] PT Coag (PPP) [Time] 20.9 s High 11.7-14.9 [facility] Comment on above: Order Comment: 411.2 Performed By: #### L 300.3900 ####[facility] [address] [place], [place], [phone] Prothrombin timeOrdered By: [employer] on 03-20-2024 PT Coag (PPP) [Time] 20.9 s High 11.7-14.9 [facility] normalized rat io (INR) calculationOrdered By: Kvng Crisostomo on 03-19-2024 INR Coag (Bld) [Relative time] 2.4 {INR} [facility] Prothrombin Time w/INRon INR Coag (PPP) [Relative time] 2.4 {INR} Normal [facility] Comment on above: Order Comment: 411.2 Performed By: #### L 300.3900 ####[facility] [address] [place], [place], [phone] PT Coag (PPP) [Time] 26.4 s High 11.7-14.9 [facility] Comment on above: Order Comment: 411.2 Performed By: #### L 300.3900 ####[facility] [address] [place], [place], [phone] Prothrombin timeOrdered By: Kvng Crisostomo on 03-19-2024 PT Coag (PPP) [Time] 26.4 s High 11.7-14.9 [facility] normalized rat io (INR) calculationOrdered By: [employer] on 03-18-2024 INR Coag (Bld) [Relative time] 3.2 {INR} [facility] Prothrombin Time w/INRon INR Coag (PPP) [Relative time] 3.2 {INR} Normal [facility] Comment on above: Order Comment: 411.2 Performed By: #### L 300.3900 ####[facility] [address] [place], [place], [phone] PT Coag (PPP) [Time] 32.3 s High 11.7-14.9 [facility] Comment on above: Order Comment: 411.2 Performed By: #### L 300.3900 ####[facility] [address] [place], [address] Prothrombin timeOrdered By: [employer] on 03-18-2024 PT Coag (PPP) [Time] 32.3 s High 11.7-14.9 [facility] normalized rat io (INR) calculationOrdered By: [employer] on 03-17-2024 INR Coag (Bld) [Relative time] 3.6 {INR} [facility] Prothrombin Time w/INRon INR Coag (PPP) [Relative time] 3.6 {INR} Normal [facility] Comment on above: Order Comment: 411.2 Performed By: #### L 300.3900 ####[facility] [address] [place], [address] PT Coag (PPP) [Time] 35.7 s High 11.7-14.9 [facility] Comment on above: Order Comment: 411.2 Performed By: #### L 300.3900 ####[facility] [address] [place], [address] Prothrombin timeOrdered By: [employer] on 03-17-2024 PT Coag (PPP) [Time] 35.7 s High 11.7-14.9 [facility] normalized rat io (INR) calculationOrdered By: Carlos Cavazos on 03-14-2024 INR Coag (Bld) [Relative time] 3.5 {INR} [facility] Prothrombin Time w/INRon INR Coag (PPP) [Relative time] 3.5 {INR} Normal [facility] Comment on above: Order Comment: 411-2 Performed By: #### L 300.3900 ####[facility] [address] [place], [address] PT Coag (PPP) [Time] 35.0 s High 11.7-14.9 [facility] Comment on above: Order Comment: 411-2 Performed By: #### L 300.3900 ####[facility] [address] [place], [address] Prothrombin timeOrdered By: Carlos Cavazos on 03-14-2024 PT Coag (PPP) [Time] 35.0 s High 11.7-14.9 [facility] normalized rat io (INR) calculationOrdered By: [employer] on 03-13-2024 INR Coag (Bld) [Relative time] 3.2 {INR} [facility] Prothrombin Time w/INRon INR Coag (PPP) [Relative time] 3.2 {INR} Normal [facility] Comment on above: Performed By: #### L 300.3900 ####[facility] [address] [place], [address] PT Coag (PPP) [Time] 32.2 s High 11.7-14.9 [facility] Comment on above: Performed By: #### L 300.3900 ####[facility] [address] [place], [address] Prothrombin timeOrdered By: [employer] on 03-13-2024 PT Coag (PPP) [Time] 32.2 s High 11.7-14.9 [facility] Prothrombin Time w/INRon INR Coag (PPP) [Relative time] 2.6 {INR} Normal [facility] Comment on above: Order Comment: 411.2 Performed By: #### L 300.3900 ####[facility] [address] [place], [address] PT Coag (PPP) [Time] 27.7 s High 11.7-14.9 [facility] Comment on above: Order Comment: 411.2 Performed By: #### L 300.3900 ####[facility] [address] [place], [address] Prothrombin Time w/INRon INR Coag (PPP) [Relative time] 3.1 {INR} Normal [facility] Comment on above: Order Comment: 411.2 Performed By: #### L 300.3900 ####[facility] [address] [place], [address] PT Coag (PPP) [Time] 31.4 s High 11.7-14.9 [facility] Comment on above: Order Comment: 411.2 Performed By: #### L 300.3900 ####[facility] [address] [place], [address] Prothrombin Time w/INRon INR Coag (PPP) [Relative time] 3.1 {INR} Normal [facility] Comment on above: Order Comment: 411.2 Performed By: #### L 300.3900 ####[facility] [address] [place], [address] PT Coag (PPP) [Time] 31.8 s High 11.7-14.9 [facility] Comment on above: Order Comment: 411.2 Performed By: #### L 300.3900 ####[facility] [address] [place], [address] Prothrombin Time w/INRon INR Coag (PPP) [Relative time] 3.0 {INR} Normal [facility] Comment on above: Order Comment: 411.2 Performed By: #### L 300.3900 ####[facility] [address] [place], [address] PT Coag (PPP) [Time] 30.6 s High 11.7-14.9 [facility] Comment on above: Order Comment: 411.2 Performed By: #### L 300.3900 ####[facility] [address] [place], [address] Prothrombin Time w/INRon - INR Coag (PPP) [Relative time] 2.6 {INR} Normal [facility] Comment on above: Order Comment: 411-2 Performed By: #### L 300.3900 ####[facility] [address] [place], [address] PT Coag (PPP) [Time] 27.5 s High 11.7-14.9 [facility] Comment on above: Order Comment: 411-2 Performed By: #### L 300.3900 ####[facility] [address] [place], [address] Prothrombin Time w/INRon - INR Coag (PPP) [Relative time] 2.3 {INR} Normal [facility] Comment on above: Order Comment: 411.2 Performed By: #### L 300.3900 ####[facility] [address] [place], [address] PT Coag (PPP) [Time] 25.5 s High 11.7-14.9 [facility] Comment on above: Order Comment: 411.2 Performed By: #### L 300.3900 ####[facility] [address] [place], [address] Prothrombin Time w/INRon - INR Coag (PPP) [Relative time] 1.9 {INR} Normal [facility] Comment on above: Order Comment: 411.2 Performed By: #### L 300.3900 ####[facility] [address] [place], [address] PT Coag (PPP) [Time] 21.3 s High 11.7-14.9 [facility] Comment on above: Order Comment: 411.2 Performed By: #### L 300.3900 ####[facility] [address] [place], [address] Prothrombin Time w/INRon INR Coag (PPP) [Relative time] 2.5 {INR} Normal [facility] Comment on above: Order Comment: 411.2 Performed By: #### L 300.3900 ####[facility] [address] [place], [address] PT Coag (PPP) [Time] 26.5 s High 11.7-14.9 [facility] Comment on above: Order Comment: 411.2 Performed By: #### L 300.3900 ####[facility] [address] [place], [address] Prothrombin Time w/INRon INR Coag (PPP) [Relative time] 2.9 {INR} Normal [facility] Comment on above: Order Comment: 411.2 Performed By: #### L 300.3900 ####[facility] [address] [place], [address] PT Coag (PPP) [Time] 30.2 s High 11.7-14.9 [facility] Comment on above: Order Comment: 411.2 Performed By: #### L 300.3900 ####[facility] [address] [place], [address] Prothrombin Time w/INRon INR Coag (PPP) [Relative time] 3.6 {INR} Normal [facility] Comment on above: Order Comment: 411.2 Performed By: #### L 300.3900 ####[facility] [address] [place], [address] PT Coag (PPP) [Time] 35.3 s High 11.7-14.9 [facility] Comment on above: Order Comment: 411.2 Performed By: #### L 300.3900 ####[facility] [address] [place], [address] Prothrombin Time w/INRon INR Coag (PPP) [Relative time] 2.8 {INR} Normal [facility] Comment on above: Order Comment: 411-2 Performed By: #### L 300.3900 ####[facility] [address] [place], [address] PT Coag (PPP) [Time] 29.4 s High 11.7-14.9 [facility] Comment on above: Order Comment: 411-2 Performed By: #### L 300.3900 ####[facility] [address] [place], [address] Prothrombin Time w/INRon INR Coag (PPP) [Relative time] 2.9 {INR} Normal [facility] Comment on above: Order Comment: 411.2 Performed By: #### L 300.3900 ####[facility] [address] [place], [address] PT Coag (PPP) [Time] 29.9 s High 11.7-14.9 [facility] Comment on above: Order Comment: 411.2 Performed By: #### L 300.3900 ####[facility] [address] [place], [address] Prothrombin Time w/INRon INR Coag (PPP) [Relative time] 2.2 {INR} Normal [facility] Comment on above: Order Comment: 411.2 Performed By: #### L 300.3900 ####[facility] [address] [place], [address] PT Coag (PPP) [Time] 24.1 s High 11.7-14.9 [facility] Comment on above: Order Comment: 411.2 Performed By: #### L 300.3900 ####[facility] [address] [place], [address] Prothrombin Time w/INRon INR Coag (PPP) [Relative time] 2.1 {INR} Normal [facility] Comment on above: Order Comment: 411-2 Performed By: #### L 300.3900 ####[facility] [address] [place], [address] PT Coag (PPP) [Time] 23.0 s High 11.7-14.9 [facility] Comment on above: Order Comment: 411-2 Performed By: #### L 300.3900 ####[facility] [address] [place], [address] Prothrombin Time w/INRon INR Coag (PPP) [Relative time] 2.8 {INR} Normal [facility] Comment on above: Performed By: #### L 300.3900 ####[facility] [address] [place], [address] PT Coag (PPP) [Time] 28.9 s High 11.7-14.9 [facility] Comment on above: Performed By: #### L 300.3900 ####[facility] [address] [place], [address] Protime w/INR Fingerstickon 01-29-2024 INR Coag (PPP) [Relative time] 3.2 {INR} Normal [facility] Comment on above: Result Comment: Crit ical Value > 4.0 Performed By: #### L 9200.0000 ####[facility] [address] [place], [address] Protime Coagsen 31.8 SEC High 11.7-14.9 [facility] Comment on above: Performed By: #### L 9200.0000 ####[facility] [address] [place], [address] KEPPRA (LEVETIRACETAM)on KEPPRA 35.2 ug/mL Normal 10.0-40.0 [facility] Comment on above: Order Comment: 411-2 Result Comment: Perf ormed at: [facility] [id number] Director: Alpesh Vázquez MD, Phone: [phone] Performed By: #### L 300.3900, L3310.0000 ####[facility] [address] [place], [address] Prothrombin Time w/INRon INR Coag (PPP) [Relative time] 2.9 {INR} Normal [facility] Comment on above: Order Comment: 411-2 Performed By: #### L 300.3900, L3310.0000 ####[facility] [address] [place], [address] PT Coag (PPP) [Time] 30.1 s High 11.7-14.9 [facility] Comment on above: Order Comment: 411-2 Performed By: #### L 300.3900, L3310.0000 ####[facility] [address] [place], [address] Prothrombin Time w/INRon INR Coag (PPP) [Relative time] 2.3 {INR} Normal [facility] Comment on above: Order Comment: 411-2 Performed By: #### L 300.3900 ####[facility] [address] [place], [address] PT Coag (PPP) [Time] 25.2 s High 11.7-14.9 [facility] Comment on above: Order Comment: 411-2 Performed By: #### L 300.3900 ####[facility] [address] [place], [address] Prothrombin Time w/INRon INR Coag (PPP) [Relative time] 2.7 {INR} Normal [facility] Comment on above: Order Comment: 411-2 Performed By: #### L 300.3900 ####[facility] [address] [place], [address] PT Coag (PPP) [Time] 28.3 s High 11.7-14.9 [facility] Comment on above: Order Comment: 411-2 Performed By: #### L 300.3900 ####[facility] [address] [place], [address] Protime w/INR Fingerstickon 01-10-2024 INR Coag (PPP) [Relative time] 3.5 {INR} Normal [facility] Comment on above: Result Comment: Crit ical Value > 4.0 Performed By: #### L 9200.0000 ####[facility] [address] [place], [address] Protime Coagsen 34.2 SEC High 11.7-14.9 [facility] Comment on above: Performed By: #### L 9200.0000 ####[facility] [address] [place], [address] CBC-Complete Blood Cnt No Di ffon 01-08-2024 Erythrocyte distribution width (RBC) [Ratio] 15.2 % High 11.6-14.6 [facility] Comment on above: Order Comment: 411-2 Performed By: #### L 100.0500, L300.3900 ####[facility] [address] [place], [address] Hematocrit (Bld) [Volume fraction] 39.0 % Low 40-54 [facility] Comment on above: Order Comment: 411-2 Performed By: #### L 100.0500, L300.3900 ####[facility] [address] [place], [address] Hemoglobin (Bld) [Mass/Vol] 12.1 g/dL Low 13.0-16.5 [facility] Comment on above: Order Comment: 411-2 Performed By: #### L 100.0500, L300.3900 ####[facility] [address] [place], [address] MCH (RBC) [Entitic mass] 27.1 pg Normal 27.0-32.0 [facility] Comment on above: Order Comment: 411-2 Performed By: #### L 100.0500, L300.3900 ####[facility] [address] [place], [address] MCHC (RBC) [Mass/Vol] 31.0 g/dL Low 32-36 [facility] Comment on above: Order Comment: 411-2 Performed By: #### L 100.0500, L300.3900 ####[facility] [address] [place], [address] MCV (RBC) [Entitic vol] 87.2 fL Normal 80-94 [facility] Comment on above: Order Comment: 411-2 Performed By: #### L 100.0500, L300.3900 ####[facility] [address] [place], [address] Platelet mean volume (Bld) [Entitic vol] 10.8 fL Normal 6.2-12.0 [facility] Comment on above: Order Comment: 411-2 Performed By: #### L 100.0500, L300.3900 ####[facility] [address] [place], [address] Platelets (Bld) [#/Vol] 300 10*3/uL Normal 150-450 [facility] Comment on above: Order Comment: 411-2 Performed By: #### L 100.0500, L300.3900 ####[facility] [address] [place], [address] RBC (Bld) [#/Vol] 4.47 10*6/uL Low 4.6-6.2 [facility] Comment on above: Order Comment: 411-2 Performed By: #### L 100.0500, L300.3900 ####[facility] [address] [place], [address] RDW SD 48.7 fl High 35.1-43.9 [facility] Comment on above: Order Comment: 411-2 Performed By: #### L 100.0500, L300.3900 ####[facility] [address] [place], [address] WBC (Bld) [#/Vol] 13.0 10*3/uL High 4.4-11.0 [facility] Comment on above: Order Comment: 411-2 Performed By: #### L 100.0500, L300.3900 ####[facility] [address] [place], [address] Prothrombin Time w/INRon INR Coag (PPP) [Relative time] 3.9 {INR} [facility] Comment on above: Order Comment: 411-2 Performed By: #### L 100.0500, L300.3900 ####[facility] [address] [place], [address] PT Coag (PPP) [Time] 37.8 s High 11.7-14.9 [facility] Comment on above: Order Comment: 411-2 Performed By: #### L 100.0500, L300.3900 ####[facility] [address] [place], [address] Urine Cultureon 01-03-2024 URC Culture exhibits no growth. Normal [facility] Comment on above: Performed By: #### M 100.2200, L400.0001, L300.3900 ####[facility] [address] [place], [address] Prothrombin Time w/INRon INR Coag (PPP) [Relative time] 3.0 {INR} Normal [facility] Comment on above: Performed By: #### M 100.2200, L400.0001, L300.3900 ####[facility] [address] [place], [address] PT Coag (PPP) [Time] 30.7 s High 11.7-14.9 [facility] Comment on above: Performed By: #### M 100.2200, L400.0001, L300.3900 ####[facility] [address] [place], [address] Urinalysis, Completeon 01-01 RBC 0-5 SEEN Normal 0-5 [facility] Comment on above: Order Comment: CLEAN CATCH Performed By: #### M 100.2200, L400.0001, L300.3900 ####[facility] [address] [place], [address] BACTERIA 0 SEEN Normal None Seen [facility] Comment on above: Order Comment: CLEAN CATCH Performed By: #### M 100.2200, L400.0001, L300.3900 ####[facility] [address] [place], [address] EPI,SQUAMOUS 0 SEEN Normal 0-5 [facility] Comment on above: Order Comment: CLEAN CATCH Performed By: #### M 100.2200, L400.0001, L300.3900 ####[facility] [address] [place], [address] Mucus Ql (Urine sed) 0 SEEN Normal [facility] Comment on above: Order Comment: CLEAN CATCH Performed By: #### M 100.2200, L400.0001, L300.3900 ####[facility] [address] [place], [address] WBC 0 SEEN Normal 0-5 [facility] Comment on above: Order Comment: CLEAN CATCH Performed By: #### M 100.2200, L400.0001, L300.3900 ####[facility] [address] [place], [address] Basic Metabolic Profile (BMP )on 01-01-2024 BUN/CRE 25.0 RATIO High 10-20 [facility] Comment on above: Order Comment: 411.2 Performed By: #### L 300.3900, L100.0500, L500.2500 ####[facility] [address] [place], [address] CA,Total 9.1 mg/dL Normal 8.5-10.1 [facility] Comment on above: Order Comment: 411.2 Performed By: #### L 300.3900, L100.0500, L500.2500 ####[facility] [address] [place], [address] Chloride [Moles/Vol] 104 mmol/L Normal 98-107 [facility] Comment on above: Order Comment: 411.2 Performed By: #### L 300.3900, L100.0500, L500.2500 ####[facility] [address] [place], [address] CO2 [Moles/Vol] 24.0 mmol/L Normal 21.0-32.0 [facility] Comment on above: Order Comment: 411.2 Performed By: #### L 300.3900, L100.0500, L500.2500 ####[facility] [address] [place], [address] Creatinine [Mass/Vol] 0.84 mg/dL Normal 0.70-1.30 [facility] Comment on above: Order Comment: 411.2 Result Comment: The validity of the calculated GFR GFRAA in patients over70 years has not been determined. Clinical correlation isessential. Performed By: #### L 300.3900, L100.0500, L500.2500 ####[facility] [address] [place], [address] EST GFR - AA 116 mL/min Normal >60 [facility] Comment on above: Order Comment: 411.2 Result Comment: Afri can Montene[place]in GFR Calc Performed By: #### L 300.3900, L100.0500, L500.2500 ####[facility] [address] [place], [address] GAP 9 Normal 5-15 [facility] Comment on above: Order Comment: 411.2 Performed By: #### L 300.3900, L100.0500, L500.2500 ####[facility] [address] [place], [address] GFR/1.73 sq M.predicted among non-blacks MDRD (S/P/Bld) [Vol rate/Area] 95 mL/min/{1.73_m2} Normal >60 [facility] Comment on above: Order Comment: 411.2 Result Comment: Non- GFR Calc Performed By: #### L 300.3900, L100.0500, L500.2500 ####[facility] [address] [place], [address] Glucose [Mass/Vol] 92 mg/dL Normal 74-106 [facility] Comment on above: Order Comment: 411.2 Performed By: #### L 300.3900, L100.0500, L500.2500 ####[facility] [address] [place], [address] Potassium [Moles/Vol] 4.2 mmol/L Normal 3.5-5.1 [facility] Comment on above: Order Comment: 411.2 Performed By: #### L 300.3900, L100.0500, L500.2500 ####[facility] [address] [place], [address] Sodium [Moles/Vol] 137 mmol/L Normal 136-145 [facility] Comment on above: Order Comment: 411.2 Performed By: #### L 300.3900, L100.0500, L500.2500 ####[facility] [address] [place], [address] Urea nitrogen [Mass/Vol] 21 mg/dL High 7-18 [facility] Comment on above: Order Comment: 411.2 Performed By: #### L 300.3900, L100.0500, L500.2500 ####[facility] [address] [place], [address] CBC-Complete Blood Cnt No Di ffon 01-01-2024 Erythrocyte distribution width (RBC) [Ratio] 14.9 % High 11.6-14.6 [facility] Comment on above: Order Comment: 411.2 Performed By: #### L 300.3900, L100.0500, L500.2500 ####[facility] [address] [place], [address] Hematocrit (Bld) [Volume fraction] 38.4 % Low 40-54 [facility] Comment on above: Order Comment: 411.2 Performed By: #### L 300.3900, L100.0500, L500.2500 ####[facility] [address] [place], [address] Hemoglobin (Bld) [Mass/Vol] 12.2 g/dL Low 13.0-16.5 [facility] Comment on above: Order Comment: 411.2 Performed By: #### L 300.3900, L100.0500, L500.2500 ####[facility] [address] [place], [address] MCH (RBC) [Entitic mass] 27.1 pg Normal 27.0-32.0 [facility] Comment on above: Order Comment: 411.2 Performed By: #### L 300.3900, L100.0500, L500.2500 ####[facility] [address] [place], [address] MCHC (RBC) [Mass/Vol] 31.8 g/dL Low 32-36 [facility] Comment on above: Order Comment: 411.2 Performed By: #### L 300.3900, L100.0500, L500.2500 ####[facility] [address] [place], [address] MCV (RBC) [Entitic vol] 85.3 fL Normal 80-94 [facility] Comment on above: Order Comment: 411.2 Performed By: #### L 300.3900, L100.0500, L500.2500 ####[facility] [address] [place], [address] Platelet mean volume (Bld) [Entitic vol] 10.1 fL Normal 6.2-12.0 [facility] Comment on above: Order Comment: 411.2 Performed By: #### L 300.3900, L100.0500, L500.2500 ####[facility] [address] [place], [address] Platelets (Bld) [#/Vol] 287 10*3/uL Normal 150-450 [facility] Comment on above: Order Comment: 411.2 Performed By: #### L 300.3900, L100.0500, L500.2500 ####[facility] [address] [place], [address] RBC (Bld) [#/Vol] 4.50 10*6/uL Low 4.6-6.2 [facility] Comment on above: Order Comment: 411.2 Performed By: #### L 300.3900, L100.0500, L500.2500 ####[facility] [address] [place], [address] RDW SD 46.5 fl High 35.1-43.9 [facility] Comment on above: Order Comment: 411.2 Performed By: #### L 300.3900, L100.0500, L500.2500 ####[facility] [address] [place], [address] WBC (Bld) [#/Vol] 14.8 10*3/uL High 4.4-11.0 [facility] Comment on above: Order Comment: 411.2 Performed By: #### L 300.3900, L100.0500, L500.2500 ####[facility] [address] [place], [address] Prothrombin Time w/INRon INR Coag (PPP) [Relative time] 2.5 {INR} Normal [facility] Comment on above: Order Comment: 411.2 Performed By: #### L 300.3900, L100.0500, L500.2500 ####[facility] [address] [place], [address] PT Coag (PPP) [Time] 26.6 s High 11.7-14.9 [facility] Comment on above: Order Comment: 411.2 Performed By: #### L 300.3900, L100.0500, L500.2500 ####[facility] [address] [place], [address] Prothrombin Time w/INRon INR Coag (PPP) [Relative time] 2.1 {INR} Normal [facility] Comment on above: Order Comment: 411.2 Performed By: #### L 300.3900 ####[facility] [address] [place], [address] PT Coag (PPP) [Time] 23.5 s High 11.7-14.9 [facility] Comment on above: Order Comment: 411.2 Performed By: #### L 300.3900 ####[facility] [address] [place], [address] Prothrombin Time w/INRon INR Coag (PPP) [Relative time] 3.2 {INR} Normal [facility] Comment on above: Order Comment: 411-2 Performed By: #### L 300.3900 ####[facility] [address] [place], [address] PT Coag (PPP) [Time] 32.6 s High 11.7-14.9 [facility] Comment on above: Order Comment: 411-2 Performed By: #### L 300.3900 ####[facility] [address] [place], [address] Prothrombin Time w/INRon INR Coag (PPP) [Relative time] 2.6 {INR} Normal [facility] Comment on above: Order Comment: 411-2 Performed By: #### L 300.3900 ####[facility] [address] [place], [address] PT Coag (PPP) [Time] 27.4 s High 11.7-14.9 [facility] Comment on above: Order Comment: 411-2 Performed By: #### L 300.3900 ####[facility] [address] [place], [address] Basic Metabolic Profile (BMP )on 12-04-2023 BUN/CRE 26.8 RATIO High 10-20 [facility] Comment on above: Order Comment: 411.2 Performed By: #### L 100.0500, L500.2500 ####[facility] [address] [place], [address] CA,Total 8.8 mg/dL Normal 8.5-10.1 [facility] Comment on above: Order Comment: 411.2 Performed By: #### L 100.0500, L500.2500 ####[facility] [address] [place], [address] Chloride [Moles/Vol] 105 mmol/L Normal 98-107 [facility] Comment on above: Order Comment: 411.2 Performed By: #### L 100.0500, L500.2500 ####[facility] [address] [place], [address] CO2 [Moles/Vol] 27.0 mmol/L Normal 21.0-32.0 [facility] Comment on above: Order Comment: 411.2 Performed By: #### L 100.0500, L500.2500 ####[facility] [address] [place], [address] Creatinine [Mass/Vol] 0.90 mg/dL Normal 0.70-1.30 [facility] Comment on above: Order Comment: 411.2 Result Comment: The validity of the calculated GFR GFRAA in patients over70 years has not been determined. Clinical correlation isessential. Performed By: #### L 100.0500, L500.2500 ####[facility] [address] [place], [address] EST GFR - AA 107 mL/min Normal >60 [facility] Comment on above: Order Comment: 411.2 Result Comment: Afri can [place] GFR Calc Performed By: #### L 100.0500, L500.2500 ####[facility] [address] [place], [address] GAP 7 Normal 5-15 [facility] Comment on above: Order Comment: 411.2 Performed By: #### L 100.0500, L500.2500 ####[facility] [address] [place], [address] GFR/1.73 sq M.predicted among non-blacks MDRD (S/P/Bld) [Vol rate/Area] 89 mL/min/{1.73_m2} Normal >60 [facility] Comment on above: Order Comment: 411.2 Result Comment: Non- GFR Calc Performed By: #### L 100.0500, L500.2500 ####[facility] [address] [place], [address] Glucose [Mass/Vol] 92 mg/dL Normal 74-106 [facility] Comment on above: Order Comment: 411.2 Performed By: #### L 100.0500, L500.2500 ####[facility] [address] [place], [address] Potassium [Moles/Vol] 4.0 mmol/L Normal 3.5-5.1 [facility] Comment on above: Order Comment: 411.2 Performed By: #### L 100.0500, L500.2500 ####[facility] [address] [place], [address] Sodium [Moles/Vol] 139 mmol/L Normal 136-145 [facility] Comment on above: Order Comment: 411.2 Performed By: #### L 100.0500, L500.2500 ####[facility] [address] [place], [address] Urea nitrogen [Mass/Vol] 24 mg/dL High 7-18 [facility] Comment on above: Order Comment: 411.2 Performed By: #### L 100.0500, L500.2500 ####[facility] [address] [place], [address] CBC-Complete Blood Cnt No Di ffon 12-04-2023 Erythrocyte distribution width (RBC) [Ratio] 14.9 % High 11.6-14.6 [facility] Comment on above: Order Comment: 411.2 Performed By: #### L 100.0500, L500.2500 ####[facility] [address] [place], [address] Hematocrit (Bld) [Volume fraction] 39.3 % Low 40-54 [facility] Comment on above: Order Comment: 411.2 Performed By: #### L 100.0500, L500.2500 ####[facility] [address] [place], [address] Hemoglobin (Bld) [Mass/Vol] 12.6 g/dL Low 13.0-16.5 [facility] Comment on above: Order Comment: 411.2 Performed By: #### L 100.0500, L500.2500 ####[facility] [address] [place], [address] MCH (RBC) [Entitic mass] 27.3 pg Normal 27.0-32.0 [facility] Comment on above: Order Comment: 411.2 Performed By: #### L 100.0500, L500.2500 ####[facility] [address] [place], [address] MCHC (RBC) [Mass/Vol] 32.1 g/dL Normal 32-36 [facility] Comment on above: Order Comment: 411.2 Performed By: #### L 100.0500, L500.2500 ####[facility] [address] [place], [address] MCV (RBC) [Entitic vol] 85.1 fL Normal 80-94 [facility] Comment on above: Order Comment: 411.2 Performed By: #### L 100.0500, L500.2500 ####[facility] [address] [place], [address] Platelet mean volume (Bld) [Entitic vol] 9.8 fL Normal 6.2-12.0 [facility] Comment on above: Order Comment: 411.2 Performed By: #### L 100.0500, L500.2500 ####[facility] [address] [place], [address] Platelets (Bld) [#/Vol] 298 10*3/uL Normal 150-450 [facility] Comment on above: Order Comment: 411.2 Performed By: #### L 100.0500, L500.2500 ####[facility] [address] [place], [address] RBC (Bld) [#/Vol] 4.62 10*6/uL Normal 4.6-6.2 [facility] Comment on above: Order Comment: 411.2 Performed By: #### L 100.0500, L500.2500 ####[facility] [address] [place], [address] RDW SD 46.5 fl High 35.1-43.9 [facility] Comment on above: Order Comment: 411.2 Performed By: #### L 100.0500, L500.2500 ####[facility] [address] [place], [address] WBC (Bld) [#/Vol] 10.3 10*3/uL Normal 4.4-11.0 [facility] Comment on above: Order Comment: 411.2 Performed By: #### L 100.0500, L500.2500 ####[facility] [address] [place], [address] M100.019on 12-03-2023 M100.019 ORDERED ONLY RSV AND COVID, NO FLU SARS-CoV-2 (COVID 19) Negative Normal [facility] Comment on above: Performed By: #### M 100.642, M100.019, L300.3900 ####[facility] [address] [place], [address] M100.642on 12-03-2023 M100.642 Negative Normal [facility] Comment on above: Performed By: #### M 100.642, M100.019, L300.3900 ####[facility] [address] [place], [address] Prothrombin Time w/INRon INR Coag (PPP) [Relative time] 2.2 {INR} Normal [facility] Comment on above: Order Comment: 411.2 Performed By: #### M 100.642, M100.019, L300.3900 ####[facility] [address] [place], [address] PT Coag (PPP) [Time] 24.2 s High 11.7-14.9 [facility] Comment on above: Order Comment: 411.2 Performed By: #### M 100.642, M100.019, L300.3900 ####[facility] [address] [place], [address] Office Visiton 09-13-2023 Follow-up visit [id number] Tamie Sifuentes cheng Gonzalez 1950 M Date Provider Department Center 09/13/2023 [id number] BUCK [facility] [place] [facility] None Family History Problem Relation Age of Onset Heart disease Father Cancer Mother Family Status - Relation Status Age at Father Mother Level of Service:[address] [place] OFFICE/OUTPATIENT ESTABLISHED MOD MDM 30 MIN Reason for Visit and Comments: left flank pain [Other] - 8/10 pain when touched Normal [facility] Progress Noteon 09-13-2023 Progress Note Walt [...] Hydrocephalus, adult (CMS/HCC) (HCC) Kidney 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 Normal [facility] CT ABDOMEN PELVIS WO IV CONT [facility] 09-07-2023 CT ABDOMEN PELVIS WO IV CONTRAST Patient Name: ANDREW [facility] 1950 [id number] Exam Date/Time: 09/06/2023 18:14 Procedure: CT ABDOMEN [...] a kidney stone; pt has a hernia [facility] 36on 08-29-2023 36 Lm on daughters vm t o advise them to call the number for the solar energy installation manager to get clarification, and to call back with further questions [address] 08-27-2023 36 Yes, they will need to call the number given to them. [facility] 36 Please advise [address] 08-21-2023 36 Name of caller: Zion holt Contact phone number: [phone] Relationship to Patient: patient Provider: MD Quinn Practice: [facility] [place] [facility] Chief Complaint/Reason for [...] to reach out to call Maury Cedeño Web Content Specialist at [facility] [phone] to get clarifications. TEA did reach back out to [facility] and advised and provider Maury's #. Please advise Best time of day caller can be reached: Any Patient advised that office/PCP has 24-48 business hours to return their call: N/A [facility] Laboratory - CoagulationOrde red By: Carlos Cavazos on 08-21-2023 INR Coag (Bld) [Relative time] 2.7 {INR} [facility] PT Coag (PPP) [Time] 28.9 s 11.7-14.9 [facility] Office Visiton 08-13-2023 Follow-up visit [id number] Tamie Sifuentes 1950 M Date Provider Department Center 08/13/2023 [id number] BUCK [facility] [place] [facility] None Family History Problem Relation Age of Onset Heart disease Father Cancer Mother Family Status - Relation Status Age at Father Mother Level of Service:63662 [place] OFFICE/OUTPATIENT NEW MODERATE MDM 45 MINUTES Reason for Visit and Comments: New Patient [542] - Bilateral flank pain, hx of kidney stones Nephrolithiasis [994360] [facility] Progress Noteon 08-13-2023 Progress Note Walt Moran [...] Hydrocephalus, adult (CMS/HCC) (HCC) 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 Normal [facility] No Panel InformationOrdered By: Carlos Cavazos on 08-03-2023 Levetiracetam (Keppra) Level 32.4 ug/mL 10.0-40.0 [facility] Comment on above: Performed at: [address] [id number] Director: Alpesh Vázquez MD, Phone: [phone] Basophil percentageOrdered B y: Carlos Cavazos on 07-20-2023 Chloride [Moles/Vol] 106 mmol/L 98-107 [facility] Glucose [Mass/Vol] 98 mg/dL 74-106 [facility] Hemoglobin (Bld) [Mass/Vol] 12.5 g/dL 13.0-16.5 [facility] Potassium [Moles/Vol] 4.3 mmol/L 3.5-5.1 [facility] Sodium [Moles/Vol] 135 mmol/L 136-145 [facility] WBC (Bld) [#/Vol] 13.0 10*3/uL 4.4-11.0 [facility] Determination of erythrocyte mean corpuscular volume (MCV)Ordered By: Carlos Cavazos on 07-20-2023 MCV (RBC) [Entitic vol] 86.2 fL 80-94 [facility] Erythrocyte distribution wid th ratioOrdered By: Carlos Cavazos on 07-20-2023 Erythrocyte distribution width (RBC) [Ratio] 15.3 % 11.6-14.6 [facility] Erythrocyte distribution wid th standard deviationOrdered By: Carlos Cavazos on 07-20-2023 Erythrocyte distribution width (RBC) [Entitic vol] 48.1 fL 35.1-43.9 [facility] Hematocrit Auto (Bld) [Volum e fraction]Ordered By: Carlos Cavazos on 07-20-2023 Hematocrit (Bld) [Volume fraction] 39.9 % 40-54 [facility] Laboratory - Chemistry and C hemistry - challengeOrdered By: Carlos Cavazos on 07-20-2023 CO2 [Moles/Vol] 24.0 mmol/L 21.0-32.0 [facility] Urea nitrogen/Creatinine [Mass ratio] 24.6 mg/mg 10-20 [facility] Laboratory - Hematology and Cell countsOrdered By: Carlos Cavazos on 07-20-2023 MCH (RBC) [Entitic mass] 27.0 pg 27.0-32.0 [facility] MCHC (RBC) [Mass/Vol] 31.3 g/dL 32-36 [facility] Platelet mean volume (Bld) [Entitic vol] 10.7 fL 6.2-12.0 [facility] Platelets (Bld) [#/Vol] 260 10*3/uL 150-450 [facility] No Panel InformationOrdered By: Carlos Cavazos on 07-20-2023 Estimated GFR (MDRD) Amer 114 mL/min >60 [facility] Comment on above: GFR Calc Estimated GFR (MDRD) Non-Af Amer 94 mL/min >60 [facility] Comment on above: Non- GFR Calc RBC Auto (Bld) [#/Vol]Ordere d By: Carlos Cavazos on 07-20-2023 RBC (Bld) [#/Vol] 4.63 10*6/uL 4.6-6.2 [facility] Serum or plasma calcium oral urement (mass/volume)Ordered By: Carlos Cavazos on 07-20-2023 Calcium [Mass/Vol] 8.6 mg/dL 8.5-10.1 [facility] Serum or plasma creatinine m easurement (mass/volume)Ordered By: Carlos Cavazos on 07-20-2023 Creatinine [Mass/Vol] 0.85 mg/dL 0.70-1.30 [facility] Comment on above: The validity of the calculated GFR & GFRAA in patients over 70 years has not been determined. Clinical correlation is essential. Serum or plasma urea nitroge n measurement (mass/volume)Ordered By: Carlos Cavazos on 07-20-2023 Urea nitrogen [Mass/Vol] 21 mg/dL 7-18 [facility] Thin prep Papanicolaou smear with manual screeningOrdered By: Carlos Cavazos on 07-20-2023 Thin prep Papanicolaou smear with manual screening 5 5-15 [facility] Basophil percentageOrdered B y: Carlos Cavazos on 07-18-2023 Chloride [Moles/Vol] 102 mmol/L 98-107 [facility] Glucose [Mass/Vol] 96 mg/dL 74-106 [facility] Hemoglobin (Bld) [Mass/Vol] 12.3 g/dL 13.0-16.5 [facility] Potassium [Moles/Vol] 4.2 mmol/L 3.5-5.1 [facility] Sodium [Moles/Vol] 136 mmol/L 136-145 [facility] WBC (Bld) [#/Vol] 14.7 10*3/uL 4.4-11.0 [facility] Determination of erythrocyte mean corpuscular volume (MCV)Ordered By: Carlos Cavazos on 07-18-2023 MCV (RBC) [Entitic vol] 85.4 fL 80-94 [facility] Erythrocyte distribution wid th ratioOrdered By: Carlos Cavazos on 07-18-2023 Erythrocyte distribution width (RBC) [Ratio] 15.1 % 11.6-14.6 [facility] Erythrocyte distribution wid th standard deviationOrdered By: Carlos Cavazos on 07-18-2023 Erythrocyte distribution width (RBC) [Entitic vol] 47.3 fL 35.1-43.9 [facility] Hematocrit Auto (Bld) [Volum e fraction]Ordered By: Carlos Cavzaos on 07-18-2023 Hematocrit (Bld) [Volume fraction] 39.3 % 40-54 [facility] Laboratory - Chemistry and C hemistry - challengeOrdered By: Carlos Cavazos on 07-18-2023 CO2 [Moles/Vol] 27.0 mmol/L 21.0-32.0 [facility] Urea nitrogen/Creatinine [Mass ratio] 24.4 mg/mg 10-20 [facility] Laboratory - Hematology and Cell countsOrdered By: Carlos Cavazos on 07-18-2023 MCH (RBC) [Entitic mass] 26.7 pg 27.0-32.0 [facility] MCHC (RBC) [Mass/Vol] 31.3 g/dL 32-36 [facility] Platelet mean volume (Bld) [Entitic vol] 10.3 fL 6.2-12.0 [facility] Platelets (Bld) [#/Vol] 288 10*3/uL 150-450 [facility] No Panel InformationOrdered By: Carlos Cavazos on 07-18-2023 Estimated GFR (MDRD) Amer 113 mL/min >60 [facility] Comment on above: GFR Calc Estimated GFR (MDRD) Non-Af Amer 93 mL/min >60 [facility] Comment on above: Non- GFR Calc RBC Auto (Bld) [#/Vol]Ordere d By: Carlos Cavazos on 07-18-2023 RBC (Bld) [#/Vol] 4.60 10*6/uL 4.6-6.2 [facility] Serum or plasma calcium oral urement (mass/volume)Ordered By: Carlos Cavazos on 07-18-2023 Calcium [Mass/Vol] 8.9 mg/dL 8.5-10.1 [facility] Serum or plasma creatinine m easurement (mass/volume)Ordered By: Carlos Cavazos on 07-18-2023 Creatinine [Mass/Vol] 0.86 mg/dL 0.70-1.30 [facility] Comment on above: The validity of the calculated GFR & GFRAA in patients over 70 years has not been determined. Clinical correlation is essential. Serum or plasma urea nitroge n measurement (mass/volume)Ordered By: Carlos Cavazos on 07-18-2023 Urea nitrogen [Mass/Vol] 21 mg/dL 7-18 [facility] Thin prep Papanicolaou smear with manual screeningOrdered By: Carlos Cavazos on 07-18-2023 Thin prep Papanicolaou smear with manual screening 7 5-15 [facility] Basophil percentageOrdered B y: Carlos Cavazos on 07-17-2023 Basophil percentage 0-5 SEEN /hpf 0-5 [facility] Bilirubin Test strip Ql (U)O rdered By: Carlos Cavazos on 07-17-2023 Bilirubin Ql (U) Negative Negative [facility] Calcium oxalate crystals det ection in urine sediment by light microscopyOrdered By: Carlos Cavazos on 07-17-2023 Calcium oxalate crystals LM Ql (Urine sed) 1+ /hpf [facility] Culture, urineOrdered By: Sharif Crouch on 07-17-2023 Bacteria identified Cx Nom (U) Positive [facility] Ketones Test strip Ql (U)Ord ered By: Carlos Cavazos on 07-17-2023 Ketones Ql (U) Negative Negative [facility] Mucus LM Ql (Urine sed)Order ed By: Carlos Cavazos on 07-17-2023 Mucus Ql (Urine sed) 0 SEEN /hpf [facility] Nitrite Test strip Ql (U)Ord ered By: Carlos Cavazos on 07-17-2023 Nitrite Ql (U) Negative Negative [facility] No Panel InformationOrdered By: Carlos Cavazos on 07-17-2023 Urine RBC 0 SEEN /hpf 0-5 [facility] Protein Test strip Ql (U)Ord ered By: Carlos Cavazos on 07-17-2023 Protein Ql (U) Negative Negative [facility] Squamous epithelial cells de tection in urine sediment by light microscopyOrdered By: Carlos Cavazos on 07-17-2023 Epithelial cells.squamous LM Ql (Urine sed) 0-5 SEEN /hpf 0-5 [facility] Urine blood detectionOrdered By: Carlos Cavazos on 07-17-2023 RBC Ql (U) Negative Negative [facility] Urine clarityOrdered By: Ted Cavazos on 07-17-2023 Clarity (U) Clear Clear [facility] Urine color determinationOrd ered By: Carlos Cavazos on 07-17-2023 Color (U) Yellow Yellow [facility] Urine glucose detectionOrder ed By: Carlos Cavazos on 07-17-2023 Glucose Ql (U) Normal mg/dl Normal [facility] Urine leukocyte esterase det ection by dipstickOrdered By: Carlos Cavazos on 07-17-2023 Leukocyte esterase Test strip Ql (U) 25 /ul Negative [facility] Urine pHOrdered By: Carlos flores on 07-17-2023 pH (U) 6.0 [pH] 5.0 - 8.0 [facility] Urine sediment bacteria coun t by microscopy (number/high power field)Ordered By: Carlos Cavazos on 07-17-2023 Bacteria LM.HPF (Urine sed) [#/Area] 0 /[HPF] None Seen [facility] Urine specific gravity measu rementOrdered By: Carlos Cavazos on 07-17-2023 Specific gravity (U) [Rel density] 1.020 1.002-1.030 [facility] Urine urobilinogen measureme ntOrdered By: Carlos Cavazos on 07-17-2023 Urobilinogen Ql (U) Normal mg/dl Normal [facility] Absolute lymphocyte countOrd ered By: Carlos Cavazos on 07-16-2023 Lymphocytes Auto (Unsp spec) [#/Vol] 6.02 10*3/uL 0.83-4.51 [facility] Automated lymphocyte count a s percentage of total leukocytesOrdered By: Carlos Cavazos on 07-16-2023 Lymphocytes/100 WBC Auto (Unsp spec) 49.1 % 19-41 [facility] Basophil percentageOrdered B y: Carlos Cavazos on 07-16-2023 Basophils/100 WBC (Bld) 0.6 % 0-1 [facility] Chloride [Moles/Vol] 105 mmol/L 98-107 [facility] Eosinophils/100 WBC (Bld) 2.0 % 0-5 [facility] Glucose [Mass/Vol] 93 mg/dL 74-106 [facility] Hemoglobin (Bld) [Mass/Vol] 12.1 g/dL 13.0-16.5 [facility] Monocytes/100 WBC (Bld) 5.3 % 0-10 [facility] Neutrophils (Bld) [#/Vol] 5.2 10*3/uL 2.0-7.7 [facility] Neutrophils/100 WBC (Bld) 42.8 % 47-70 [facility] Potassium [Moles/Vol] 4.3 mmol/L 3.5-5.1 [facility] Sodium [Moles/Vol] 138 mmol/L 136-145 [facility] WBC (Bld) [#/Vol] 12.3 10*3/uL 4.4-11.0 [facility] Blood manual differential co mment interpretation (narrative result)Ordered By: Carlos Cavazos on 07-16-2023 Manual differential comment Shemar (Bld) [Interp] SCANNED [facility] Determination of erythrocyte mean corpuscular volume (MCV)Ordered By: Carlos Cavazos on 07-16-2023 MCV (RBC) [Entitic vol] 86.8 fL 80-94 [facility] Erythrocyte distribution wid th ratioOrdered By: Carlos Cavazos on 07-16-2023 Erythrocyte distribution width (RBC) [Ratio] 15.3 % 11.6-14.6 [facility] Erythrocyte distribution wid th standard deviationOrdered By: Carlos Cavazos on 07-16-2023 Erythrocyte distribution width (RBC) [Entitic vol] 48.9 fL 35.1-43.9 [facility] Hematocrit Auto (Bld) [Volum e fraction]Ordered By: Carlos Cavazos on 07-16-2023 Hematocrit (Bld) [Volume fraction] 38.7 % 40-54 [facility] Immature granulocytes/100 WB C Auto (Bld)Ordered By: Carlos Cavazos on 07-16-2023 Immature granulocytes/100 WBC (Bld) 0.200 % 0.0-0.9 [facility] Comment on above: IG% - Immature Granu locytes (promyelocytes, myelocytes and metamyelocytes) > 1% indicates that a LEFT SHIFT is Present. Laboratory - Chemistry and C hemistry - challengeOrdered By: Carlos Cavazos on 07-16-2023 CO2 [Moles/Vol] 25.0 mmol/L 21.0-32.0 [facility] Urea nitrogen/Creatinine [Mass ratio] 21.0 mg/mg 10-20 [facility] Laboratory - CoagulationOrde red By: Carlos Cavazos on 07-16-2023 INR Coag (Bld) [Relative time] 2.4 {INR} [facility] PT Coag (PPP) [Time] 25.7 s 11.7-14.9 [facility] Laboratory - Hematology and Cell countsOrdered By: Carlos Cavazos on 07-16-2023 MCH (RBC) [Entitic mass] 27.1 pg 27.0-32.0 [facility] MCHC (RBC) [Mass/Vol] 31.3 g/dL 32-36 [facility] Nucleated RBC/100 WBC (Bld) [Ratio] 0 % 0-5 [facility] Platelet mean volume (Bld) [Entitic vol] 10.5 fL 6.2-12.0 [facility] Platelets (Bld) [#/Vol] 289 10*3/uL 150-450 [facility] No Panel InformationOrdered By: Carlos Cavazos on 07-16-2023 Estimated GFR (MDRD) Amer 106 mL/min >60 [facility] Comment on above: GFR Calc Estimated GFR (MDRD) Non-Af Amer 88 mL/min >60 [facility] Comment on above: Non- GFR Calc Reactive Lymphocytes 1+ [facility] RBC Auto (Bld) [#/Vol]Ordere d By: Carlos Cavazos on 07-16-2023 RBC (Bld) [#/Vol] 4.46 10*6/uL 4.6-6.2 [facility] Serum or plasma calcium oral urement (mass/volume)Ordered By: Carlos Cavazos on 07-16-2023 Calcium [Mass/Vol] 9.0 mg/dL 8.5-10.1 [facility] Serum or plasma creatinine m easurement (mass/volume)Ordered By: Carlos Cavazos on 07-16-2023 Creatinine [Mass/Vol] 0.90 mg/dL 0.70-1.30 [facility] Comment on above: The validity of the calculated GFR & GFRAA in patients over 70 years has not been determined. Clinical correlation is essential. Serum or plasma urea nitroge n measurement (mass/volume)Ordered By: Carlos Cavazos on 07-16-2023 Urea nitrogen [Mass/Vol] 19 mg/dL 7-18 [facility] Thin prep Papanicolaou smear with manual screeningOrdered By: Carlos Cavazos on 07-16-2023 Thin prep Papanicolaou smear with manual screening 8 5-15 [facility] Absolute lymphocyte countOrd ered By: Carlos Cavazos on 07-13-2023 Lymphocytes Auto (Unsp spec) [#/Vol] 5.44 10*3/uL 0.83-4.51 [facility] Automated lymphocyte count a s percentage of total leukocytesOrdered By: Carlos Cavazos on 07-13-2023 Lymphocytes/100 WBC Auto (Unsp spec) 47.3 % 19-41 [facility] Basophil percentageOrdered B y: Carlos Cavazos on 07-13-2023 Basophils/100 WBC (Bld) 0.4 % 0-1 [facility] Chloride [Moles/Vol] 107 mmol/L 98-107 [facility] Eosinophils/100 WBC (Bld) 1.7 % 0-5 [facility] Glucose [Mass/Vol] 96 mg/dL 74-106 [facility] Hemoglobin (Bld) [Mass/Vol] 13.5 g/dL 13.0-16.5 [facility] Monocytes/100 WBC (Bld) 4.3 % 0-10 [facility] Neutrophils (Bld) [#/Vol] 5.3 10*3/uL 2.0-7.7 [facility] Neutrophils/100 WBC (Bld) 46.0 % 47-70 [facility] Potassium [Moles/Vol] 4.0 mmol/L 3.5-5.1 [facility] Sodium [Moles/Vol] 139 mmol/L 136-145 [facility] WBC (Bld) [#/Vol] 11.5 10*3/uL 4.4-11.0 [facility] Determination of erythrocyte mean corpuscular volume (MCV)Ordered By: Carlos Cavazos on 07-13-2023 MCV (RBC) [Entitic vol] 86.1 fL 80-94 [facility] Erythrocyte distribution wid th ratioOrdered By: Carlos Cavazos on 07-13-2023 Erythrocyte distribution width (RBC) [Ratio] 15.2 % 11.6-14.6 [facility] Erythrocyte distribution wid th standard deviationOrdered By: Carlos Cavazos on 07-13-2023 Erythrocyte distribution width (RBC) [Entitic vol] 48.0 fL 35.1-43.9 [facility] Hematocrit Auto (Bld) [Volum e fraction]Ordered By: Carlos Cavazos on 07-13-2023 Hematocrit (Bld) [Volume fraction] 42.2 % 40-54 [facility] Immature granulocytes/100 WB C Auto (Bld)Ordered By: Carlos Cavazos on 07-13-2023 Immature granulocytes/100 WBC (Bld) 0.300 % 0.0-0.9 [facility] Comment on above: IG% - Immature Granu locytes (promyelocytes, myelocytes and metamyelocytes) > 1% indicates that a LEFT SHIFT is Present. Laboratory - Chemistry and C hemistry - challengeOrdered By: Carlos Cavazos on 07-13-2023 CO2 [Moles/Vol] 26.0 mmol/L 21.0-32.0 [facility] Urea nitrogen/Creatinine [Mass ratio] 21.8 mg/mg 10-20 [facility] Laboratory - Hematology and Cell countsOrdered By: Carlos Cavazos on 07-13-2023 MCH (RBC) [Entitic mass] 27.6 pg 27.0-32.0 [facility] MCHC (RBC) [Mass/Vol] 32.0 g/dL 32-36 [facility] Nucleated RBC/100 WBC (Bld) [Ratio] 0 % 0-5 [facility] Platelet mean volume (Bld) [Entitic vol] 10.1 fL 6.2-12.0 [facility] Platelets (Bld) [#/Vol] 279 10*3/uL 150-450 [facility] No Panel InformationOrdered By: Carlos Cavazos on 07-13-2023 Estimated GFR (MDRD) Amer 118 mL/min >60 [facility] Comment on above: GFR Calc Estimated GFR (MDRD) Non-Af Amer 98 mL/min >60 [facility] Comment on above: Non- GFR Calc Levetiracetam (Keppra) Level 25.5 ug/mL 10.0-40.0 [facility] Comment on above: Performed at: - [address] [id number] Director: Alpesh Vázquez MD, Phone: [phone] RBC Auto (Bld) [#/Vol]Ordere d By: Carlos Cavazos on 07-13-2023 RBC (Bld) [#/Vol] 4.90 10*6/uL 4.6-6.2 [facility] Serum or plasma calcium oral urement (mass/volume)Ordered By: Carlos Cavazos on 07-13-2023 Calcium [Mass/Vol] 9.1 mg/dL 8.5-10.1 [facility] Serum or plasma creatinine m easurement (mass/volume)Ordered By: Carlos Cavazos on 07-13-2023 Creatinine [Mass/Vol] 0.82 mg/dL 0.70-1.30 [facility] Comment on above: The validity of the calculated GFR & GFRAA in patients over 70 years has not been determined. Clinical correlation is essential. Serum or plasma urea nitroge n measurement (mass/volume)Ordered By: Carlos Cavazos on 07-13-2023 Urea nitrogen [Mass/Vol] 18 mg/dL 7-18 [facility] Thin prep Papanicolaou smear with manual screeningOrdered By: Carlos Cavazos on 07-13-2023 Thin prep Papanicolaou smear with manual screening 6 5-15 [facility] No Panel InformationOrdered By: Carlos Cavazos on 07-12-2023 Valproic Acid (Depakene) Level < 3 ug/mL 50-100 [facility] Laboratory - CoagulationOrde red By: Carlos Cavazos on 07-05-2023 INR Coag (Bld) [Relative time] 2.4 {INR} [facility] PT Coag (PPP) [Time] 26.3 s 11.7-14.9 [facility] - CoagulationOrde red By: Carlos Cavazos on 07-02-2023 INR Coag (Bld) [Relative time] 1.5 {INR} [facility] PT Coag (PPP) [Time] 18.5 s 11.7-14.9 [facility] - CoagulationOrde red By: Carlos Cavazos on 06-28-2023 INR Coag (Bld) [Relative time] 1.7 {INR} [facility] PT Coag (PPP) [Time] 20.5 s 11.7-14.9 [facility] 36on 06-25-2023 36 [facility] tuary called in stating appt scheduled 07/10/23 Guy has to be made further out, pt being transported by cot. Changed appt to 08/13/23 per [facility] only avail time for transport, first avail with DR Buck at 10:00 AM. [facility] - [facility] By: Carlos Cavazos on 06-25-2023 INR Coag (Bld) [Relative time] 3.8 {INR} [facility] PT Coag (PPP) [Time] 38.2 s 11.7-14.9 [facility] - Coagulation[facility]de red By: Carlos Cavazos on 06-21-2023 INR Coag (Bld) [Relative time] 3.2 {INR} [facility] PT Coag (PPP) [Time] 32.9 s 11.7-14.9 [facility] No Panel InformationOrdered By: Carlos Cavazos on 06-13-2023 Valproic Acid (Depakene) Level < 3 ug/mL 50-100 [facility] - Coagulation[facility] red By: Carlos Cavazos on 06-06-2023 PT Coag (PPP) [Time] 30.5 s 11.7-14.9 [facility] Platelet poor plasma interna tional normalized ratio (INR)Ordered By: Carlos Cavazos on 06-06-2023 INR Coag (PPP) [Relative time] 2.9 {INR} [facility] International normalized rat io (INR) calculationOrdered By: Carlos Cavazos on 05-23-2023 INR Coag (PPP) [Relative time] 2.6 {INR} [facility] - Coagulation[facility] red By: Carlos Cavazos on 05-23-2023 PT Coag (PPP) [Time] 27.7 s 11.7-14.9 [facility] - Coagulation[facility] red By: Carlos Cavazos on 05-09-2023 PT Coag (PPP) [Time] 24.1 s 11.7-14.9 [facility] Whole blood international no rmalized ratio (INR)Ordered By: Carlos Cavazos on 05-09-2023 INR Coag (Bld) [Relative time] 2.1 {INR} [facility] - Coagulation[facility] red By: Carlos Cavazos on 04-23-2023 PT Coag (PPP) [Time] 26.4 s 11.7-14.9 [facility] Whole blood international no rmalized ratio (INR)Ordered By: Carlos Cavazos on 04-23-2023 INR Coag (Bld) [Relative time] 2.4 {INR} [facility] INR in Blood by Coagulation assayOrdered By: Carlos Cavazos on 04-09-2023 INR Coag (Bld) [Relative time] 2.1 {INR} [facility] - Coagulation[facility] red By: Carlos Cavazos on 04-09-2023 PT Coag (PPP) [Time] 23.9 s 11.7-14.9 [facility] INR in Blood by Coagulation assayOrdered By: Carlos Cavazos on 04-02-2023 INR Coag (Bld) [Relative time] 2.2 {INR} [facility] - Coagulation[facility] red By: Carlos Cavazos on 04-02-2023 PT Coag (PPP) [Time] 24.5 s 11.7-14.9 [facility] INR in Blood by Coagulation assayOrdered By: Carlos Cavazos on 03-26-2023 INR Coag (Bld) [Relative time] 1.7 {INR} [facility] - Coagulation[facility] red By: Carlos Cavazos on 03-26-2023 PT Coag (PPP) [Time] 19.9 s 11.7-14.9 [facility] INR in Blood by Coagulation assayOrdered By: Carlos Cavazos on 03-22-2023 INR Coag (Bld) [Relative time] 1.3 {INR} [facility] - Coagulation[facility] red By: Carlos Cavazos on 03-22-2023 PT Coag (PPP) [Time] 16.4 s 11.7-14.9 [facility] INR in Blood by Coagulation assayOrdered By: Carlos Cavazos on 03-08-2023 INR Coag (Bld) [Relative time] 2.0 {INR} [facility] - Coagulation[facility] red By: Carlos Cavazos on 03-08-2023 PT Coag (PPP) [Time] 22.5 s 11.7-14.9 [facility] - Coagulation[facility] red By: Carlos Cavazos on 02-22-2023 INR Coag (Bld) [Relative time] 2.2 {INR} [facility] Comment on above: Critical Value > 4.0 Whole blood prothrombin time Ordered By: Carlos Cavazos on 02-22-2023 PT Coag (Bld) [Time] 24.0 s 11.7-14.9 [facility] INR in Blood by Coagulation assayOrdered By: Cliff Bruner on 02-15-2023 INR Coag (Bld) [Relative time] 2.0 {INR} [facility] - Coagulation[facility] red By: Cliff Bruner on 02-15-2023 PT Coag (PPP) [Time] 22.8 s 11.7-14.9 [facility] INR in Blood by Coagulation assayOrdered By: Carlos Cavazos on 02-08-2023 INR Coag (Bld) [Relative time] 2.1 {INR} [facility] - Coagulation[facility] red By: Carlos Cavazos on 02-08-2023 PT Coag (PPP) [Time] 23.5 s 11.7-14.9 [facility] INR in Blood by Coagulation assayOrdered By: Carlos Cavazos on 01-31-2023 INR Coag (Bld) [Relative time] 2.0 {INR} [facility] - Coagulation[facility] red By: Carlos Cavazos on 01-31-2023 PT Coag (PPP) [Time] 22.4 s 11.7-14.9 [facility] - Coagulation[facility] red By: Carlos Cavazos on 01-29-2023 INR Coag (Bld) [Relative time] 1.8 {INR} [facility] Comment on above: Critical Value > 4.0 Whole blood prothrombin time Ordered By: Carlos Cavazos on 01-29-2023 PT Coag (Bld) [Time] 19.9 s 11.7-14.9 [facility] INR in Blood by Coagulation assayOrdered By: Carlos Cavazos on 01-26-2023 INR Coag (Bld) [Relative time] 1.5 {INR} [facility] - Coagulation[facility] red By: Carlos Cavazos on 01-26-2023 PT Coag (PPP) [Time] 18.3 s 11.7-14.9 [facility] INR in Blood by Coagulation assayOrdered By: Carlos Cavazos on 01-24-2023 INR Coag (Bld) [Relative time] 1.3 {INR} [facility] - Coagulation[facility] red By: Carlos Cavazos on 01-24-2023 PT Coag (PPP) [Time] 16.2 s 11.7-14.9 [facility] Basophil percentageOrdered B y: Carlos Cavazos on 01-22-2023 Basophil percentage 0 SEEN /hpf 0-5 [facility] Bilirubin Test strip Ql (U)O rdered By: Carlos Cavazos on 01-22-2023 Bilirubin Ql (U) Negative Negative [facility] Calcium oxalate crystals det ection in urine sediment by light microscopyOrdered By: Carlos Cavazos on 01-22-2023 Calcium oxalate crystals LM Ql (Urine sed) 1+ /hpf [facility] Culture, urineOrdered By: Sharif Crouch on 01-22-2023 Bacteria identified Cx Nom (U) Positive [facility] Ketones Test strip Ql (U)Ord ered By: Carlos Cavazos on 01-22-2023 Ketones Ql (U) Negative Negative [facility] Mucus LM Ql (Urine sed)Order ed By: Carlos Cavazos on 01-22-2023 Mucus Ql (Urine sed) 1+ /hpf [facility] Nitrite Test strip Ql (U)Ord ered By: Carlos Cavazos on 01-22-2023 Nitrite Ql (U) Negative Negative [facility] Protein Test strip Ql (U)Ord ered By: Carlos Cavazos on 01-22-2023 Protein Ql (U) Negative Negative [facility] Squamous epithelial cells de tection in urine sediment by light microscopyOrdered By: Carlos Cavazos on 01-22-2023 Epithelial cells.squamous LM Ql (Urine sed) 0 SEEN /hpf 0-5 [facility] Urine blood detectionOrdered By: Carlos Cavazos on 01-22-2023 RBC Ql (U) Negative Negative [facility] RBC Ql (U) 0 SEEN /hpf 0-5 [facility] Urine clarityOrdered By: Ted Cavazos on 01-22-2023 Clarity (U) Sl. Cloudy Clear [facility] Urine color determinationOrd ered By: Carlos Cavazos on 01-22-2023 Color (U) Yellow Yellow [facility] Urine glucose detectionOrder ed By: Carlos Cavazos on 01-22-2023 Glucose Ql (U) Normal mg/dl Normal [facility] Urine leukocyte esterase det ection by dipstickOrdered By: Carlos Cavazos on 01-22-2023 Leukocyte esterase Test strip Ql (U) Negative Negative [facility] Urine pHOrdered By: Carlos flores on 01-22-2023 pH (U) 5.0 [pH] 5.0 - 8.0 [facility] Urine sediment bacteria coun t by microscopy (number/high power field)Ordered By: Carlos Cavazos on 01-22-2023 Bacteria LM.HPF (Urine sed) [#/Area] 2 /[HPF] None Seen [facility] Urine specific gravity measu rementOrdered By: Carlos Cavazos on 01-22-2023 Specific gravity (U) [Rel density] 1.025 1.002-1.030 [facility] Urobilinogen Auto test strip Ql (U)Ordered By: Carlos Cavazos on 01-22-2023 Urobilinogen Ql (U) Normal mg/dl Normal [facility] INR in Blood by Coagulation assayOrdered By: Carlos Cavazos on 01-10-2023 INR Coag (Bld) [Relative time] 2.0 {INR} [facility] - Coagulation[facility] By: Carlos Cavazos on 01-10-2023 PT Coag (PPP) [Time] 22.6 s 11.7-14.9 [facility] INR in Blood by Coagulation assayOrdered By: Carlos Cavazos on 12-27-2022 INR Coag (Bld) [Relative time] 2.1 {INR} [facility] - Coagulation[facility] red By: Carlos Cavazos on 12-27-2022 PT Coag (PPP) [Time] 24.1 s 11.7-14.9 [facility] INR in Blood by Coagulation assayOrdered By: Carlos Cavazos on 12-21-2022 INR Coag (Bld) [Relative time] 2.4 {INR} [facility] - Coagulation[facility] red By: Carlos Cavazos on 12-21-2022 PT Coag (PPP) [Time] 26.7 s 11.7-14.9 [facility] - Coagulation[facility] red By: Carlos Cavazos on 12-14-2022 INR Coag (Bld) [Relative time] 2.3 {INR} [facility] Comment on above: Critical Value > 4.0 Whole blood prothrombin time Ordered By: Carlos Cavazos on 12-14-2022 PT Coag (Bld) [Time] 25.2 s 11.7-14.9 [facility] - Coagulation[facility] red By: Carlos Cavazos on 12-07-2022 INR Coag (Bld) [Relative time] 2.5 {INR} [facility] Comment on above: Critical Value > 4.0 Whole blood prothrombin time Ordered By: Carlos Cavazos on 12-07-2022 PT Coag (Bld) [Time] 26.9 s 11.7-14.9 [facility] Amorphous sediment detection in urine sediment by light microscopyOrdered By: Carlos Cavazos on 11-24-2022 Amorphous sediment LM Ql (Urine sed) 1+ [facility] Basophil percentageOrdered B y: Carlos Cavazos on 11-24-2022 Basophil percentage 0 SEEN /hpf 0-5 [facility] Bilirubin [Mass/Vol] 0.30 mg/dL 0.20-1.00 [facility] Comment on above: For patients on eltr ombopag therapy, use of Dimension [place] TBIL is not recommended. Chloride [Moles/Vol] 107 mmol/L 98-107 [facility] Glucose [Mass/Vol] 95 mg/dL 74-106 [facility] Potassium [Moles/Vol] 4.2 mmol/L 3.5-5.1 [facility] Protein [Mass/Vol] 6.9 g/dL 6.4-8.2 [facility] Sodium [Moles/Vol] 138 mmol/L 136-145 [facility] WBC (Bld) [#/Vol] 10.4 10*3/uL 4.4-11.0 [facility] Bilirubin Test strip Ql (U)O rdered By: Carlos Cavazos on 11-24-2022 Bilirubin Ql (U) Negative Negative [facility] Blood erythrocytes count (nu mber/volume)Ordered By: Carlos Cavazos on 11-24-2022 RBC (Bld) [#/Vol] 4.44 10*6/uL 4.6-6.2 [facility] Blood hemoglobin measurement (mass/volume)Ordered By: Carlos Cavazos on 11-24-2022 Hemoglobin (Bld) [Mass/Vol] 11.8 g/dL 13.0-16.5 [facility] Blood platelet mean volumeOr dered By: Carlos Cavazos on 11-24-2022 Platelet mean volume (Bld) [Entitic vol] 9.7 fL 6.2-12.0 [facility] Calcium oxalate crystals det ection in urine sediment by light microscopyOrdered By: Carlos Cavazos on 11-24-2022 Calcium oxalate crystals LM Ql (Urine sed) RARE /hpf [facility] Culture, urineOrdered By: Sharif Crouch on 11-24-2022 Bacteria identified Cx Nom (U) Positive [facility] Determination of erythrocyte mean corpuscular volume (MCV)Ordered By: Carlos Cavazos on 11-24-2022 MCV (RBC) [Entitic vol] 84.7 fL 80-94 [facility] Hematocrit Auto (Bld) [Volum e fraction]Ordered By: Carlos Cavazos on 11-24-2022 Hematocrit (Bld) [Volume fraction] 37.6 % 40-54 [facility] Ketones Test strip Ql (U)Ord ered By: Carlos Cavazos on 11-24-2022 Ketones Ql (U) Negative Negative [facility] - Chemistry and C hemistry - challengeOrdered By: Carlos Cavazos on 11-24-2022 ALP [Catalytic activity/Vol] 103 U/L 45-117 [facility] ALT [Catalytic activity/Vol] 14 U/L 16-61 [facility] CO2 [Moles/Vol] 26.0 mmol/L 21.0-32.0 [facility] Globulin (S) [Mass/Vol] 4.0 g/dL 2.2-4.2 [facility] Urea nitrogen/Creatinine [Mass ratio] 24.1 mg/mg 10-20 [facility] - Hematology and Cell countsOrdered By: Carlos Cavazos on 11-24-2022 Erythrocyte distribution width (RBC) [Entitic vol] 49.4 fL 35.1-43.9 [facility] Erythrocyte distribution width (RBC) [Ratio] 16.0 % 11.6-14.6 [facility] MCH (RBC) [Entitic mass] 26.6 pg 27.0-32.0 [facility] MCHC Auto (RBC) [Mass/Vol]Or dered By: Carlos Cavazos on 11-24-2022 MCHC (RBC) [Mass/Vol] 31.4 g/dL 32-36 [facility] Mucus LM Ql (Urine sed)Order ed By: Carlos Cavazos on 11-24-2022 Mucus Ql (Urine sed) 0 SEEN /hpf [facility] Nitrite Test strip Ql (U)Ord ered By: Carlos Cavazos on 11-24-2022 Nitrite Ql (U) Negative Negative [facility] No Panel InformationOrdered By: Carlos Cavazos on 11-24-2022 Estimated GFR (MDRD) Amer 118 mL/min >60 [facility] Comment on above: GFR Calc Estimated GFR (MDRD) Non-Af Amer 97 mL/min >60 [facility] Comment on above: Non- GFR Calc Platelets bldOrdered By: Ted Cavazos on 11-24-2022 Platelets (Bld) [#/Vol] 309 10*3/uL 150-450 [facility] Protein Test strip Ql (U)Ord ered By: Carlos Cavazos on 11-24-2022 Protein Ql (U) Negative Negative [facility] Serum or plasma albumin oral urement (mass/volume)Ordered By: Carlos Cavazos on 11-24-2022 Albumin [Mass/Vol] 2.9 g/dL 3.2-5.0 [facility] Serum or plasma albumin/glob ulin mass ratioOrdered By: Carlos Cavazos on 11-24-2022 Albumin/Globulin [Mass ratio] 0.7 {ratio} 0.9-2.4 [facility] Serum or plasma calcium oral urement (mass/volume)Ordered By: Carlos Cavazos on 11-24-2022 Calcium [Mass/Vol] 8.7 mg/dL 8.5-10.1 [facility] Serum or plasma creatinine m easurement (mass/volume)Ordered By: Carlos Cavazos on 11-24-2022 Creatinine [Mass/Vol] 0.83 mg/dL 0.70-1.30 [facility] Comment on above: The validity of the calculated GFR & GFRAA in patients over 70 years has not been determined. Clinical correlation is essential. Serum or plasma urea nitroge n measurement (mass/volume)Ordered By: Carlos Cavazos on 11-24-2022 Urea nitrogen [Mass/Vol] 20 mg/dL 7-18 [facility] Squamous epithelial cells de tection in urine sediment by light microscopyOrdered By: Carlos Cavazos on 11-24-2022 Epithelial cells.squamous LM Ql (Urine sed) 0 SEEN /hpf 0-5 [facility] Thin prep Papanicolaou smear with manual screeningOrdered By: Carlos Cavazos on 11-24-2022 Thin prep Papanicolaou smear with manual screening 10 U/L 15-37 [facility] Thin prep Papanicolaou smear with manual screening 5 5-15 [facility] Urine blood detectionOrdered By: Carlos Cavazos on 11-24-2022 RBC Ql (U) Negative Negative [facility] RBC Ql (U) 0 SEEN /hpf 0-5 [facility] Urine clarityOrdered By: Ted Cavazos on 11-24-2022 Clarity (U) Clear Clear [facility] Urine color determinationOrd ered By: Carlos Cavazos on 11-24-2022 Color (U) Yellow Yellow [facility] Urine glucose detectionOrder ed By: Carlos Cavazos on 11-24-2022 Glucose Ql (U) Normal mg/dl Normal [facility] Urine leukocyte esterase det ection by dipstickOrdered By: Carlos Cavazos on 11-24-2022 Leukocyte esterase Test strip Ql (U) Negative Negative [facility] Urine pHOrdered By: Carlos flores on 11-24-2022 pH (U) 7.0 [pH] 5.0 - 8.0 [facility] Urine sediment bacteria coun t by microscopy (number/high power field)Ordered By: Carlos Cavazos on 11-24-2022 Bacteria LM.HPF (Urine sed) [#/Area] 0 /[HPF] None Seen [facility] Urine specific gravity measu rementOrdered By: Carlos Cavazos on 11-24-2022 Specific gravity (U) [Rel density] 1.010 1.002-1.030 [facility] Urobilinogen Auto test strip Ql (U)Ordered By: Carlos Cavazos on 11-24-2022 Urobilinogen Ql (U) Normal mg/dl Normal [facility] - CoagulationOrde red By: Carlos Cavazos on 11-23-2022 INR Coag (Bld) [Relative time] 2.2 {INR} [facility] Comment on above: Critical Value > 4.0 Whole blood prothrombin time Ordered By: Carlos Cavazos on 11-23-2022 PT Coag (Bld) [Time] 24.5 s 11.7-14.9 [facility] Basophil percentageOrdered B y: Carlos Cavazos on 11-22-2022 Chloride [Moles/Vol] 105 mmol/L 98-107 [facility] Glucose [Mass/Vol] 91 mg/dL 74-106 [facility] Potassium [Moles/Vol] 4.1 mmol/L 3.5-5.1 [facility] Sodium [Moles/Vol] 138 mmol/L 136-145 [facility] WBC (Bld) [#/Vol] 12.0 10*3/uL 4.4-11.0 [facility] Blood erythrocytes count (nu mber/volume)Ordered By: Carlos Cavazos on 11-22-2022 RBC (Bld) [#/Vol] 4.65 10*6/uL 4.6-6.2 [facility] Blood hemoglobin measurement (mass/volume)Ordered By: Carlos Cavazos on 11-22-2022 Hemoglobin (Bld) [Mass/Vol] 12.4 g/dL 13.0-16.5 [facility] Blood platelet mean volumeOr dered By: Carlos Cavazos on 11-22-2022 Platelet mean volume (Bld) [Entitic vol] 10.3 fL 6.2-12.0 [facility] Determination of erythrocyte mean corpuscular volume (MCV)Ordered By: Carlos Cavazos on 11-22-2022 MCV (RBC) [Entitic vol] 86.0 fL 80-94 [facility] Hematocrit Auto (Bld) [Volum e fraction]Ordered By: Carlos Cavazos on 11-22-2022 Hematocrit (Bld) [Volume fraction] 40.0 % 40-54 [facility] - Chemistry and C hemistry - challengeOrdered By: Carlos Cavazos on 11-22-2022 CO2 [Moles/Vol] 25.0 mmol/L 21.0-32.0 [facility] Urea nitrogen/Creatinine [Mass ratio] 23.6 mg/mg 10-20 [facility] - Hematology and Cell countsOrdered By: Carlos Cavazos on 11-22-2022 Erythrocyte distribution width (RBC) [Entitic vol] 50.0 fL 35.1-43.9 [facility] Erythrocyte distribution width (RBC) [Ratio] 15.9 % 11.6-14.6 [facility] MCH (RBC) [Entitic mass] 26.7 pg 27.0-32.0 [facility] MCHC Auto (RBC) [Mass/Vol]Or dered By: Carlos Cavazos on 11-22-2022 MCHC (RBC) [Mass/Vol] 31.0 g/dL 32-36 [facility] No Panel InformationOrdered By: Carlos Cavazos on 11-22-2022 Estimated GFR (MDRD) Amer 115 mL/min >60 [facility] Comment on above: GFR Calc Estimated GFR (MDRD) Non-Af Amer 95 mL/min >60 [facility] Comment on above: Non- GFR Calc Platelets bldOrdered By: Ted Cavazos on 11-22-2022 Platelets (Bld) [#/Vol] 320 10*3/uL 150-450 [facility] Serum or plasma calcium oral urement (mass/volume)Ordered By: Carlos Cavazos on 11-22-2022 Calcium [Mass/Vol] 8.7 mg/dL 8.5-10.1 [facility] Serum or plasma creatinine m easurement (mass/volume)Ordered By: Carlos Cavazos on 11-22-2022 Creatinine [Mass/Vol] 0.85 mg/dL 0.70-1.30 [facility] Comment on above: The validity of the calculated GFR & GFRAA in patients over 70 years has not been determined. Clinical correlation is essential. Serum or plasma urea nitroge n measurement (mass/volume)Ordered By: Carlos Cavazos on 11-22-2022 Urea nitrogen [Mass/Vol] 20 mg/dL 7-18 [facility] Thin prep Papanicolaou smear with manual screeningOrdered By: Carlos Cavazos on 11-22-2022 Thin prep Papanicolaou smear with manual screening 8 5-15 [facility] - CoagulationOrde red By: Carlos Cavazos on 11-09-2022 INR Coag (Bld) [Relative time] 2.1 {INR} [facility] Comment on above: Critical Value > 4.0 Whole blood prothrombin time Ordered By: Carlos Cavazos on 11-09-2022 PT Coag (Bld) [Time] 22.6 s 11.7-14.9 [facility] - CoagulationOrde red By: Carlos Cavazos on 10-26-2022 INR Coag (Bld) [Relative time] 2.6 {INR} [facility] Comment on above: Critical Value > 4.0 Whole blood prothrombin time Ordered By: Carlos Cavazos on 10-26-2022 PT Coag (Bld) [Time] 28.5 s 11.7-14.9 [facility] - CoagulationOrde red By: Carlos Cavazos on 10-12-2022 INR Coag (Bld) [Relative time] 2.4 {INR} [facility] Comment on above: Critical Value > 4.0 Whole blood prothrombin time Ordered By: Carlos Cavazos on 06-08-2023 PT Coag (Bld) [Time] 26.4 s 11.7-14.9 [facility] - CoagulationOrde red By: Carlos Cavazos on 10-05-2022 INR Coag (Bld) [Relative time] 2.6 {INR} [facility] Comment on above: Critical Value > 4.0 Whole blood prothrombin time Ordered By: Carlos Cavazos on 10-05-2022 PT Coag (Bld) [Time] 28.0 s 11.7-14.9 [facility] - CoagulationOrde red By: Carlos Cavazos on 09-28-2022 INR Coag (Bld) [Relative time] 2.7 {INR} [facility] Comment on above: Critical Value > 4.0 Whole blood prothrombin time Ordered By: Carlos Cavazos on 09-28-2022 PT Coag (Bld) [Time] 28.9 s 11.7-14.9 [facility] - CoagulationOrde red By: Carlos Cavazos on 09-14-2022 INR Coag (Bld) [Relative time] 2.5 {INR} [facility] Comment on above: Critical Value > 4.0 Whole blood prothrombin time Ordered By: Carlos Cavazos on 09-14-2022 PT Coag (Bld) [Time] 27.4 s 11.7-14.9 [facility] - CoagulationOrde red By: Carlos Cavazos on 08-31-2022 INR Coag (Bld) [Relative time] 2.3 {INR} [facility] Comment on above: Critical Value > 4.0 Whole blood prothrombin time Ordered By: Carlos Cavazos on 08-31-2022 PT Coag (Bld) [Time] 25.4 s 11.7-14.9 [facility] Basophil percentageOrdered B y: Carlos Cavazos on 08-23-2022 Chloride [Moles/Vol] 108 mmol/L 98-107 [facility] Glucose [Mass/Vol] 86 mg/dL 74-106 [facility] Potassium [Moles/Vol] 4.3 mmol/L 3.5-5.1 [facility] Sodium [Moles/Vol] 136 mmol/L 136-145 [facility] WBC (Bld) [#/Vol] 10.0 10*3/uL 4.4-11.0 [facility] Blood erythrocytes count (nu mber/volume)Ordered By: Carlos Cavazos on 08-23-2022 RBC (Bld) [#/Vol] 4.77 10*6/uL 4.6-6.2 [facility] Blood hemoglobin measurement (mass/volume)Ordered By: Carlos Cavazos on 08-23-2022 Hemoglobin (Bld) [Mass/Vol] 12.5 g/dL 13.0-16.5 [facility] Blood platelet mean volumeOr dered By: Carlos Cavazos on 08-23-2022 Platelet mean volume (Bld) [Entitic vol] 11.0 fL 6.2-12.0 [facility] Determination of erythrocyte mean corpuscular volume (MCV)Ordered By: Carlos Cavazos on 08-23-2022 MCV (RBC) [Entitic vol] 84.3 fL 80-94 [facility] Hematocrit Auto (Bld) [Volum e fraction]Ordered By: Carlos Cavazos on 08-23-2022 Hematocrit (Bld) [Volume fraction] 40.2 % 40-54 [facility] - Chemistry and C hemistry - challengeOrdered By: Carlos Cavazos on 08-23-2022 CO2 [Moles/Vol] 24.0 mmol/L 21.0-32.0 [facility] Urea nitrogen/Creatinine [Mass ratio] 22.8 mg/mg 10-20 [facility] - Hematology and Cell countsOrdered By: Carlos Cavazos on 08-23-2022 Erythrocyte distribution width (RBC) [Entitic vol] 49.3 fL 35.1-43.9 [facility] Erythrocyte distribution width (RBC) [Ratio] 16.0 % 11.6-14.6 [facility] MCH (RBC) [Entitic mass] 26.2 pg 27.0-32.0 [facility] MCHC Auto (RBC) [Mass/Vol]Or dered By: Carlos Cavazos on 08-23-2022 MCHC (RBC) [Mass/Vol] 31.1 g/dL 32-36 [facility] No Panel InformationOrdered By: Carlos Cavazos on 08-23-2022 Estimated GFR (MDRD) Amer 134 mL/min >60 [facility] Comment on above: GFR Calc Estimated GFR (MDRD) Non-Af Amer 110 mL/min >60 [facility] Comment on above: Non- GFR Calc Platelets bldOrdered By: Ted Cavazos on 08-23-2022 Platelets (Bld) [#/Vol] 268 10*3/uL 150-450 [facility] Serum or plasma calcium oral urement (mass/volume)Ordered By: Carlos Cavazos on 08-23-2022 Calcium [Mass/Vol] 9.1 mg/dL 8.5-10.1 [facility] Serum or plasma creatinine m easurement (mass/volume)Ordered By: Carlos Cavazos on 08-23-2022 Creatinine [Mass/Vol] 0.74 mg/dL 0.70-1.30 [facility] Comment on above: The validity of the calculated GFR & GFRAA in patients over 70 years has not been determined. Clinical correlation is essential. Serum or plasma urea nitroge n measurement (mass/volume)Ordered By: Carlos Cavazos on 08-23-2022 Urea nitrogen [Mass/Vol] 17 mg/dL 7-18 [facility] Thin prep Papanicolaou smear with manual screeningOrdered By: Carlos Cavazos on 08-23-2022 Thin prep Papanicolaou smear with manual screening 4 5-15 [facility] - CoagulationOrde red By: Carlos Cavazos on 08-17-2022 INR Coag (Bld) [Relative time] 2.8 {INR} [facility] Comment on above: Critical Value > 4.0 Whole blood prothrombin time Ordered By: Carlos Cavazos on 08-17-2022 PT Coag (Bld) [Time] 29.6 s 11.7-14.9 [facility] - CoagulationOrde red By: Carlos Cavazos on 08-14-2022 INR Coag (Bld) [Relative time] 3.9 {INR} [facility] Comment on above: Critical Value > 4.0 Whole blood prothrombin time Ordered By: Carlos Cavazos on 08-14-2022 PT Coag (Bld) [Time] 40.6 s 11.7-14.9 [facility] - CoagulationOrde red By: Carlos Cavazos on 07-31-2022 INR Coag (Bld) [Relative time] 2.5 {INR} [facility] Comment on above: Critical Value > 4.0 Whole blood prothrombin time Ordered By: Carlos Cavazos on 07-31-2022 PT Coag (Bld) [Time] 26.8 s 11.7-14.9 [facility] INR in Blood by Coagulation assayOrdered By: Carlos Cavazos on 07-24-2022 INR Coag (Bld) [Relative time] 2.3 {INR} [facility] - CoagulationOrde red By: Carlos Cavazos on 07-24-2022 PT Coag (PPP) [Time] 24.7 s 11.7-14.9 [facility] - CoagulationOrde red By: Carlos Cavazos on 07-20-2022 INR Coag (Bld) [Relative time] 1.9 {INR} [facility] Comment on above: Critical Value > 4.0 Whole blood prothrombin time Ordered By: Carlos Cavazos on 07-20-2022 PT Coag (Bld) [Time] 20.6 s 11.7-14.9 [facility] - CoagulationOrde red By: Carlos Cavazos on 07-17-2022 INR Coag (Bld) [Relative time] 1.3 {INR} [facility] Comment on above: Critical Value > 4.0 Whole blood prothrombin time Ordered By: Carlos Cavazos on 07-17-2022 PT Coag (Bld) [Time] 15.9 s 11.7-14.9 [facility] Basophil percentageOrdered B y: Carlos Cavazos on 07-11-2022 Chloride [Moles/Vol] 105 mmol/L 98-107 [facility] Glucose [Mass/Vol] 97 mg/dL 74-106 [facility] Potassium [Moles/Vol] 3.9 mmol/L 3.5-5.1 [facility] Sodium [Moles/Vol] 140 mmol/L 136-145 [facility] WBC (Bld) [#/Vol] 9.4 10*3/uL 4.4-11.0 [facility] Blood erythrocytes count (nu mber/volume)Ordered By: Carlos Cavazos on 07-11-2022 RBC (Bld) [#/Vol] 4.66 10*6/uL 4.6-6.2 [facility] Blood hemoglobin measurement (mass/volume)Ordered By: Carlos Cavazos on 07-11-2022 Hemoglobin (Bld) [Mass/Vol] 12.0 g/dL 13.0-16.5 [facility] Blood platelet mean volumeOr dered By: Carlos Cavazos on 07-11-2022 Platelet mean volume (Bld) [Entitic vol] 10.4 fL 6.2-12.0 [facility] Determination of erythrocyte mean corpuscular volume (MCV)Ordered By: Carlos Cavazos on 07-11-2022 MCV (RBC) [Entitic vol] 83.7 fL 80-94 [facility] Hematocrit Auto (Bld) [Volum e fraction]Ordered By: Carlos Cavazos on 07-11-2022 Hematocrit (Bld) [Volume fraction] 39.0 % 40-54 [facility] - Chemistry and C hemistry - challengeOrdered By: Carlos Cavazos on 07-11-2022 CO2 [Moles/Vol] 28.0 mmol/L 21.0-32.0 [facility] Urea nitrogen/Creatinine [Mass ratio] 23.0 mg/mg 10-20 [facility] - Hematology and Cell countsOrdered By: Carlos Cavazos on 07-11-2022 Erythrocyte distribution width (RBC) [Entitic vol] 51.0 fL 35.1-43.9 [facility] Erythrocyte distribution width (RBC) [Ratio] 16.8 % 11.6-14.6 [facility] MCH (RBC) [Entitic mass] 25.8 pg 27.0-32.0 [facility] MCHC Auto (RBC) [Mass/Vol]Or dered By: Carlos Cavazos on 07-11-2022 MCHC (RBC) [Mass/Vol] 30.8 g/dL 32-36 [facility] No Panel InformationOrdered By: Carlos Cavazos on 07-11-2022 Estimated GFR (MDRD) Amer 126 mL/min >60 [facility] Comment on above: GFR Calc Estimated GFR (MDRD) Non-Af Amer 104 mL/min >60 [facility] Comment on above: Non- GFR Calc Platelets bldOrdered By: Ted Cavazos on 07-11-2022 Platelets (Bld) [#/Vol] 291 10*3/uL 150-450 [facility] Serum or plasma calcium oral urement (mass/volume)Ordered By: Carlos Cavazos on 07-11-2022 Calcium [Mass/Vol] 9.2 mg/dL 8.5-10.1 [facility] Serum or plasma creatinine m easurement (mass/volume)Ordered By: Carlos Cavazos on 07-11-2022 Creatinine [Mass/Vol] 0.78 mg/dL 0.70-1.30 [facility] Comment on above: The validity of the calculated GFR & GFRAA in patients over 70 years has not been determined. Clinical correlation is essential. Serum or plasma urea nitroge n measurement (mass/volume)Ordered By: Carlos Cavazos on 07-11-2022 Urea nitrogen [Mass/Vol] 18 mg/dL 7-18 [facility] Thin prep Papanicolaou smear with manual screeningOrdered By: Carlos Cavazos on 07-11-2022 Thin prep Papanicolaou smear with manual screening 7 5-15 [facility] - CoagulationOrde red By: Carlos Cavazos on 07-10-2022 INR Coag (Bld) [Relative time] 1.8 {INR} [facility] Comment on above: Critical Value > 4.0 Whole blood prothrombin time Ordered By: Carlos Cavazos on 07-10-2022 PT Coag (Bld) [Time] 21.0 s 11.7-14.9 [facility] - CoagulationOrde red By: Carlos Cavazos on 07-03-2022 INR Coag (Bld) [Relative time] 1.9 {INR} [facility] Comment on above: Critical Value > 4.0 Whole blood prothrombin time Ordered By: Carlos Cavazos on 07-03-2022 PT Coag (Bld) [Time] 22.7 s 11.7-14.9 [facility] INR in Blood by Coagulation assayOrdered By: Carlos Cavazos on 06-27-2022 INR Coag (Bld) [Relative time] 2.9 {INR} [facility] - CoagulationOrde red By: Carlos Cavazos on 06-27-2022 PT Coag (PPP) [Time] 29.9 s 11.7-14.9 [facility] - CoagulationOrde red By: Carlos Cavazos on 06-13-2022 INR Coag (Bld) [Relative time] 2.1 {INR} [facility] Comment on above: Critical Value > 4.0 Whole blood prothrombin time Ordered By: Carlos Cavazos on 06-13-2022 PT Coag (Bld) [Time] 24.4 s 11.7-14.9 [facility] - CoagulationOrde red By: Carlos Cavazos on 06-06-2022 INR Coag (Bld) [Relative time] 1.5 {INR} [facility] Comment on above: Critical Value > 4.0 Whole blood prothrombin time Ordered By: Carlos Cavazos on 06-06-2022 PT Coag (Bld) [Time] 18.4 s 11.7-14.9 [facility] Basophil percentageOrdered B y: Carlos Cavazos on 05-30-2022 Chloride [Moles/Vol] 105 mmol/L 98-107 [facility] Glucose [Mass/Vol] 95 mg/dL 74-106 [facility] Potassium [Moles/Vol] 3.9 mmol/L 3.5-5.1 [facility] Sodium [Moles/Vol] 140 mmol/L 136-145 [facility] WBC (Bld) [#/Vol] 7.6 10*3/uL 4.4-11.0 [facility] Blood erythrocytes count (nu mber/volume)Ordered By: Carlos Cavazos on 05-30-2022 RBC (Bld) [#/Vol] 4.79 10*6/uL 4.6-6.2 [facility] Blood hemoglobin measurement (mass/volume)Ordered By: Carlos Cavazos on 05-30-2022 Hemoglobin (Bld) [Mass/Vol] 12.1 g/dL 13.0-16.5 [facility] Blood platelet mean volumeOr dered By: Carlos Cavazos on 05-30-2022 Platelet mean volume (Bld) [Entitic vol] 10.4 fL 6.2-12.0 [facility] Determination of erythrocyte mean corpuscular volume (MCV)Ordered By: Carlos Cavazos on 05-30-2022 MCV (RBC) [Entitic vol] 82.5 fL 80-94 [facility] Hematocrit Auto (Bld) [Volum e fraction]Ordered By: Carlos Cavazos on 05-30-2022 Hematocrit (Bld) [Volume fraction] 39.5 % 40-54 [facility] INR in Blood by Coagulation assayOrdered By: Carlos Cavazos on 05-30-2022 INR Coag (Bld) [Relative time] 1.9 {INR} [facility] - Chemistry and C hemistry - challengeOrdered By: Carlos Cavazos on 05-30-2022 CO2 [Moles/Vol] 27.0 mmol/L 21.0-32.0 [facility] Urea nitrogen/Creatinine [Mass ratio] 21.4 mg/mg 10-20 [facility] - CoagulationOrde red By: Carlos Cavazos on 05-30-2022 PT Coag (PPP) [Time] 21.6 s 11.7-14.9 [facility] - Hematology and Cell countsOrdered By: Carlos Cavazos on 05-30-2022 Erythrocyte distribution width (RBC) [Entitic vol] 48.8 fL 35.1-43.9 [facility] Erythrocyte distribution width (RBC) [Ratio] 16.2 % 11.6-14.6 [facility] MCH (RBC) [Entitic mass] 25.3 pg 27.0-32.0 [facility] MCHC Auto (RBC) [Mass/Vol]Or dered By: Carlos Cavazos on 05-30-2022 MCHC (RBC) [Mass/Vol] 30.6 g/dL 32-36 [facility] No Panel InformationOrdered By: Carlos Cavazos on 05-30-2022 Estimated GFR (MDRD) Amer 133 mL/min >60 [facility] Comment on above: GFR Calc Estimated GFR (MDRD) Non-Af Amer 110 mL/min >60 [facility] Comment on above: Non- GFR Calc Platelets bldOrdered By: Pet noe Kenny on 05-30-2022 Platelets (Bld) [#/Vol] 308 10*3/uL 150-450 [facility] Serum or plasma calcium oral urement (mass/volume)Ordered By: Carlos Cavazos on 05-30-2022 Calcium [Mass/Vol] 9.1 mg/dL 8.5-10.1 [facility] Serum or plasma creatinine m easurement (mass/volume)Ordered By: Carlos Cavazos on 05-30-2022 Creatinine [Mass/Vol] 0.75 mg/dL 0.70-1.30 [facility] Comment on above: The validity of the calculated GFR & GFRAA in patients over 70 years has not been determined. Clinical correlation is essential. Serum or plasma urea nitroge n measurement (mass/volume)Ordered By: Carlos Cavazos on 05-30-2022 Urea nitrogen [Mass/Vol] 16 mg/dL 7-18 [facility] Thin prep Papanicolaou smear with manual screeningOrdered By: Carlos Cavazos on 05-30-2022 Thin prep Papanicolaou smear with manual screening 8 5-15 [facility] - CoagulationOrde red By: Carlos Cavazos on 05-16-2022 INR Coag (Bld) [Relative time] 2.6 {INR} [facility] Comment on above: Critical Value > 4.0 Whole blood prothrombin time Ordered By: Carlos Cavazos on 05-16-2022 PT Coag (Bld) [Time] 29.9 s 11.7-14.9 [facility] - CoagulationOrde red By: Carlos Cavazos on 05-02-2022 INR Coag (Bld) [Relative time] 2.0 {INR} [facility] Comment on above: Critical Value > 4.0 Whole blood prothrombin time Ordered By: Carlos Cavazos on 05-02-2022 PT Coag (Bld) [Time] 23.2 s 11.7-14.9 [facility] - CoagulationOrde red By: Carlos Cavazos on 04-27-2022 INR Coag (Bld) [Relative time] 2.7 {INR} [facility] Comment on above: Critical Value > 4.0 Whole blood prothrombin time Ordered By: Carlos Cavazos on 04-27-2022 PT Coag (Bld) [Time] 31.1 s 11.7-14.9 [facility] - CoagulationOrde red By: Carlos Cavazos on 04-26-2022 INR Coag (Bld) [Relative time] 2.8 {INR} [facility] Comment on above: Critical Value > 4.0 Whole blood prothrombin time Ordered By: Carlos Cavazos on 04-26-2022 PT Coag (Bld) [Time] 32.6 s 11.7-14.9 [facility] - CoagulationOrde red By: Carlos Cavazos on 04-11-2022 INR Coag (Bld) [Relative time] 2.9 {INR} [facility] Comment on above: Critical Value > 4.0 Whole blood prothrombin time Ordered By: Carlos Cavazos on 04-11-2022 PT Coag (Bld) [Time] 32.8 s 11.7-14.9 [facility] - CoagulationOrde red By: Carlos Cavazos on 03-28-2022 INR Coag (Bld) [Relative time] 2.1 {INR} [facility] Comment on above: Critical Value > 4.0 Whole blood prothrombin time Ordered By: Carlos Cavazos on 03-28-2022 PT Coag (Bld) [Time] 24.8 s 11.7-14.9 [facility] - CoagulationOrde red By: Carlos Cavazos on 03-23-2022 INR Coag (Bld) [Relative time] 1.7 {INR} [facility] Comment on above: Critical Value > 4.0 Whole blood prothrombin time Ordered By: Carlos Cavazos on 03-23-2022 PT Coag (Bld) [Time] 20.9 s 11.7-14.9 [facility] - CoagulationOrde red By: Carlos Cavazos on 03-16-2022 INR Coag (Bld) [Relative time] 1.7 {INR} [facility] Comment on above: Critical Value > 4.0 Whole blood prothrombin time Ordered By: Carlos Cavazos on 03-16-2022 PT Coag (Bld) [Time] 19.9 s 11.7-14.9 [facility] - CoagulationOrde red By: Carlos Cavazos on 03-09-2022 INR Coag (Bld) [Relative time] 1.8 {INR} [facility] Comment on above: Critical Value > 4.0 Whole blood prothrombin time Ordered By: Carlos Cavazos on 03-09-2022 PT Coag (Bld) [Time] 21.9 s 11.7-14.9 [facility] - CoagulationOrde red By: Carlos Cavazos on 03-06-2022 INR Coag (Bld) [Relative time] 1.7 {INR} [facility] Comment on above: Critical Value > 4.0 Whole blood prothrombin time Ordered By: Carlos Cavazos on 03-06-2022 PT Coag (Bld) [Time] 20.0 s 11.7-14.9 [facility] CBC with Auto Differentialon 03-02-2022 Absolute [...] - 10.7 10*3/uL [facility] Test Performed by [facility], [address] [place] [address] [facility] [address] HEAD WO CONTRASTon 2021 Patient Name: ANDREW SIFUENTES Computed Tomography ACCESSION EXAM DATE/TIME PROCEDURE ORDERING PROVIDER [id number] 03/02/2022 13:[address] Head or Brain w/o [id number] -LANETTE MUNGUIA Contrast CPT code 36040 Reason For Exam (CT Head or Brain [...] tubes (parent active on the left for HYDRO ELECTRIC STATION OPERATOR shunting and disconnected on the right). 2. No definite evidence of acute infarction (MRI more sensitive), mass lesion, nor hemorrhage. Report Dictated on --- Final --- Dictated: 03/02/2022 1:35 pm Dictating Physician: MD GUTIERREZ WILLIAM Signed Date and Time: 03/02/2022 1:39 pm Signed by: MD GUTIERREZ WILLIAM Transcribed Date and Time: 03/02/2022 1:35 [facility] Anant Gutierrez MD - 03/02/2022 Patient Name: ANDREW SIFUENTES Computed Tomography ACCESSION EXAM DATE/TIME PROCEDURE ORDERING PROVIDER [id number] 03/02/2022 13:[address] Head or Brain w/o [id number] -LANETTE MUNGUIA Contrast CPT code 01710 Reason For Exam (CT Head or Brain [...] tubes (parent active on the left for HYDRO ELECTRIC STATION OPERATOR shunting and disconnected on the right). 2. [...] Tomography ACCESSION EXAM DATE/TIME PROCEDURE ORDERING PROVIDER [id number] 03/02/2022 13:[address] Head or Brain w/o [id number] -LANETTE MUNGUIA Contrast CPT code 36212 Reason For Exam (CT Head or Brain [...] tubes (parent active on the left for HYDRO ELECTRIC STATION OPERATOR shunting and disconnected on the right). 2. No definite evidence of acute infarction (MRI more sensitive), mass lesion, nor hemorrhage. Report Dictated on Final Dictated: 03/02/2022 1:35 pm Dictating Physician: MD GUTIERREZ WILLIAM Signed Date and Time: 03/02/2022 1:39 pm Signed by: MD GUTIERREZ WILLIAM Transcribed Date and Time: 03/02/2022 1:35 Normal [facility] Comp Metabolic Panelon 03-02 Calcium [Mass/Vol] 9.1 mg/dL Normal 8.4-10.4 [facility] Comment on above: Performed By: #### H EMDF, PT, CMP3 ####[place] [id number] [facility] [place] ALP [Catalytic activity/Vol] 128 U/L High 38-126 [facility] Comment on above: Performed By: #### H EMDF, PT, CMP3 ####[place] [address] [place] ALT [Catalytic activity/Vol] 12 U/L Normal 0-49 [facility] Comment on above: Result Comment: The ALT test is performed by an updated assay method. Please note that the reference intervals have been changed and are now sex specific. Performed By: #### H EMDF, PT, CMP3 ####[place] [address] [facility] [place] Anion gap [Moles/Vol] 7 mmol/L Normal 3-13 [facility] Comment on above: Performed By: #### H EMDF, PT, CMP3 ####[place] [address] [facility] [place] AST [Catalytic activity/Vol] 24 U/L Normal 15-46 [facility] Comment on above: Performed By: #### H EMDF, PT, CMP3 ####[place] [address] [facility] [place] Bilirubin [Mass/Vol] 0.4 mg/dL Normal 0.2-1.3 [facility] Comment on above: Performed By: #### H EMDF, PT, CMP3 ####[place] [address] [facility] [place] [address] CO2 [Moles/Vol] 27 mmol/L Normal 22-30 [facility] Comment on above: Performed By: #### H CHRISTEL MOTT, CMP3 ####[facility] [id number] [place], [place] Glucose [Mass/Vol] 109 mg/dL High 70-100 [facility] Comment on above: Performed By: #### H TIERA PT, CMP3 ####[facility] [place], [place] Protein [Mass/Vol] 8.1 g/dL Normal 6.3-8.2 [facility] Comment on above: Performed By: #### H CHRISTEL MOTT, CMP3 ####[place] [place], [place] Urea nitrogen [Mass/Vol] 22 mg/dL High 7-17 [facility] Comment on above: Performed By: #### H CHRSITEL MOTT, CMP3 ####[place] [place], [place] Creatinine [Mass/Vol] 0.63 mg/dL Normal 0.52-1.25 [facility] Comment on above: Performed By: #### H CHRISTEL MOTT, CMP3 ####[place] [address] [place], [place] eGFR OTHER > 90.0 Normal >60 [facility] Comment on above: Result Comment: KDIG [...] tubular creatinine secretion. Performed By: #### H CRHISTEL MOTT CMP3 ####[place] [place], [place] GFR/1.73 sq M.predicted among blacks MDRD (S/P/Bld) [Vol rate/Area] mL/min/{1.73_m2} Normal >60 [facility] Comment on above: Performed By: #### H CHRISTEL MOTT CMP3 ####[address] Albumin [Mass/Vol] 4.1 g/dL Normal 3.5-5.0 [facility] Comment on above: Performed By: #### H CHRISTEL MOTT CMP3 ####[address] Chloride [Moles/Vol] 106 mmol/L Normal 98-107 [facility] Comment on above: Performed By: #### H CHRISTEL MOTT CMP3 ####[address] Potassium [Moles/Vol] 3.7 mmol/L Normal 3.5-5.1 [facility] Comment on above: Performed By: #### H CHRISTEL MOTT CMP3 ####[address] Sodium [Moles/Vol] 140 mmol/L Normal 135-145 [facility] Comment on above: Performed By: #### H CHRISTEL MOTT CMP3 ####[address] Comprehensive Metabolic Pane kiel 03-02-2022 Albumin [Mass/Vol] 4.1 g/dL 3.5 - 5.0 g/dL [facility] ALP (Bld) [Catalytic activity/Vol] 128 U/L High 38 - 126 U/L [facility] ALT [Catalytic activity/Vol] 12 U/L 0 - 49 U/L [facility] Comment on above: The ALT test is [...] P INF mL/min [facility] EGFR IF NonAfrican Montenegrin mL/min 60 - PINF mL/min [facility] Comment [...] - 17 mg/dL [facility] Test Performed by [address] [facility] [place] ED Provider Noteon [address] [facility] EMERGENCY DEPT EMERGENCY DEPARTMENT ENCOUNTER Pt Name: Andrew Sifuentes Birthdate 1950 Date of evaluation: 03/02/2022 Provider: Lanette Munguia DO CHIEF COMPLAINT Chief Complaint Patient presents with Fall Patient had unwitnessed fall at [facility] landed on butt. Is on thinners, denies LOC, denies head injury has no complaints at this time HISTORY OF PRESENT ILLNESS (Location/Symptom, Timing/Onset, Context/Setting, Quality, Duration, Modifying Factors, Severity) Note limiting factors. I wore a N-95 mask for the entirety of this encounter. Andrew Sifuentes is a 71 y.o. male medical history of hydrocephalus status post HYDRO ELECTRIC STATION OPERATOR shunt, history of DVT on Coumadin who presents to the emergency department from [facility] for evaluation following mechanical fall. Patient rolled out of bed. Unwitnessed. Found down on ground by nursing staff. Nonambulatory at baseline. Patient reports he did not hit his head. Has no acute complaints. Denies any pain or traumatic injury. Per nursing protocol at longterm, sent to emergency department due to unwitnessed [...] Hemorrhoids Hydrocephalus, adult (HCC) Kidney stone Neuropathy HYDRO ELECTRIC STATION OPERATOR (ventriculoperitoneal) shunt status SURGICAL HISTORY Past Surgical [...] CONTRAST R (more content not included)... Normal [facility] Hemogram w/ Autodiffon 03-02 Abs Baso Cnt 0.2 10*3/uL Normal 0.0-0.2 [facility] Comment on above: Performed By: #### H EMDF PT, CMP3 ####[facility] [place] [address] Abs Neutrophile Cnt 10.7 10*3/uL High 1.8-7.0 [facility] Comment on above: Performed By: #### H EMDF PT, CMP3 ####[facility] [id number] [place] [address] Basophils/100 WBC (Bld) 1.1 % Normal 0.0-2.0 [facility] Comment on above: Performed By: #### H EMDF PT, CMP3 ####[facility] [place] [address] Eosinophils (Bld) [#/Vol] 0.1 10*3/uL Normal 0.0-0.5 [facility] Comment on above: Performed By: #### H EMDF, PT, CMP3 ####[facility] [place] [address] Eosinophils/100 WBC (Bld) 0.5 % Low 1.0-6.0 [facility] Comment on above: Performed By: #### H EMDF, PT, CMP3 ####[facility] [place] [address] Granulocytes/100 WBC (Bld) 73.9 % Normal 40.0-80.0 [facility] Comment on above: Performed By: #### H EMDF PT, CMP3 ####[place] [address] [place], [place] Lymphocytes (Bld) [#/Vol] 3.0 10*3/uL Normal 1.0-4.3 [facility] Comment on above: Performed By: #### H EMDF PT, CMP3 ####[address] Lymphocytes/100 WBC (Bld) 20.6 % Normal 20.0-40.0 [facility] Comment on above: Performed By: #### H EMDF PT, CMP3 ####[address] Monocytes (Bld) [#/Vol] 0.6 10*3/uL Normal 0.0-0.8 [facility] Comment on above: Performed By: #### H EMDF PT, CMP3 ####[address] Monocytes/100 WBC (Bld) 3.9 % Normal 2.0-10.0 [facility] Comment on above: Performed By: #### H TIERA PT, CMP3 ####[address] Platelet mean volume (Bld) [Entitic vol] 8.5 fL Normal 7.4-12.4 [facility] Comment on above: Result Comment: MPV is a calculated measurement using platelet volume ratio. Performed By: #### H EMDF, PT, CMP3 ####[address] Platelets (Bld) [#/Vol] 411 10*3/uL Normal 140-440 [facility] Comment on above: Performed By: #### H EMDF, PT, CMP3 ####[address] Erythrocyte distribution width (RBC) [Ratio] 17.0 % High 11.5-14.5 [facility] Comment on above: Performed By: #### H EMDHeydi PT, CMP3 ####[address] Hematocrit (Bld) [Volume fraction] 37.4 % Low 40.0-52.0 [facility] Comment on above: Performed By: #### H EMDF PT, CMP3 ####[place] [place], [place] Hemoglobin (Bld) [Mass/Vol] 12.1 g/dL Low 13.0-18.0 [facility] Comment on above: Performed By: #### H EMDF PT, CMP3 ####[address] MCH (RBC) [Entitic mass] 26.2 pg Normal 26.0-34.0 [facility] Comment on above: Performed By: #### H TIERA PT, CMP3 ####[address] MCHC 32.3 % Normal 32.0-36.0 [facility] Comment on above: Performed By: #### H TIERA PT, CMP3 ####[address] MCV (RBC) [Entitic vol] 81.1 fL Normal 80.0-98.0 [facility] Comment on above: Performed By: #### H TIERA PT, CMP3 ####[address] RBC (Bld) [#/Vol] 4.61 10*6/uL Normal 4.40-5.90 [facility] Comment on above: Performed By: #### H EMDHeydi PT, CMP3 ####[address] WBC (Bld) [#/Vol] 14.5 10*3/uL High 3.6-10.7 [facility] Comment on above: Performed By: #### H EMDF PT, CMP3 ####[address] [place] [address] Prothrombin Timeon INR 1.9 High 0.9-1.1 [facility] Comment on above: Result Comment: Harry [...] Performed By: #### H EMDF, PT, CMP3 ####[place] [place], [place] PT Coag (PPP) [Time] 18.9 s High 9.0-12.0 [facility] Comment on above: Result Comment: . Performed By: #### H EMDF, PT, CMP3 ####[address] Protime-INRon 03-02-2022 INR Coag (Bld) [Relative time] 1.9 {INR} High [facility] Comment on above: Recommended Anticoag ulant Therapy: [...] Interpretation and review of laboratory results Abnormal [facility] PT Coag (PPP) [Time] 18.9 s High 9.0 - 12.0 s [facility] Comment on above: . Test Performed by [facility], [address] [place] [address] [facility] Laboratory - CoagulationOrde red By: Carlos Cavazos on 02-20-2022 INR Coag (Bld) [Relative time] 2.6 {INR} [facility] Comment on above: Critical Value > 4.0 Whole blood prothrombin time Ordered By: Carlos Cavazos on 02-20-2022 PT Coag (Bld) [Time] 30.1 s 11.7-14.9 [facility] Laboratory - CoagulationOrde red By: Carlos Cavazos on 02-13-2022 INR Coag (Bld) [Relative time] 2.3 {INR} [facility] Comment on above: Critical Value > 4.0 Whole blood prothrombin time Ordered By: Carlos Cavazos on 02-13-2022 PT Coag (Bld) [Time] 26.7 s 11.7-14.9 [facility] Laboratory - CoagulationOrde red By: Carlos Cavazos on 02-06-2022 INR Coag (Bld) [Relative time] 2.3 {INR} [facility] Comment on above: Critical Value > 4.0 Whole blood prothrombin time Ordered By: Carlos Cavazos on 02-06-2022 PT Coag (Bld) [Time] 26.6 s 11.7-14.9 [facility] Laboratory - Coagulationon 0 01-30-2022 INR Coag (Bld) [Relative time] 1.7 {INR} [facility] Work Phone: Comment on above: Critical Value > 4.0 Whole blood prothrombin time on 01-30-2022 PT Coag (Bld) [Time] 20.1 s 11.7-14.9 [facility] Work Phone: Laboratory - Coagulationon 0 01-26-2022 INR Coag (Bld) [Relative time] 1.8 {INR} [facility] Work Phone: Comment on above: Critical Value > 4.0 Whole blood prothrombin time on 01-26-2022 PT Coag (Bld) [Time] 21.8 s 11.7-14.9 [facility] Work Phone: Laboratory - Coagulationon 0 01-19-2022 INR Coag (Bld) [Relative time] 2.2 {INR} [facility] Work Phone: Comment on above: Critical Value > 4.0 Whole blood prothrombin time on 01-19-2022 PT Coag (Bld) [Time] 25.7 s 11.7-14.9 [facility] Work Phone: INR in Blood by Coagulation assayon 01-10-2022 INR Coag (Bld) [Relative time] 1.8 {INR} [facility] Work Phone: Laboratory - Coagulationon 0 01-10-2022 PT Coag (PPP) [Time] 20.9 s 11.7-14.9 [facility] Work Phone: Basophil percentageon 2021 Chloride [Moles/Vol] 107 mmol/L 98-107 [facility] Work Phone: Glucose [Mass/Vol] 82 mg/dL 74-106 [facility] Work Phone: Potassium [Moles/Vol] 3.4 mmol/L 3.5-5.1 [facility] Work Phone: Sodium [Moles/Vol] 143 mmol/L 136-145 [facility] Work Phone: WBC (Bld) [#/Vol] 10.4 10*3/uL 4.4-11.0 [facility] Work Phone: Blood erythrocytes count (nu mber/volume)on 01-05-2022 RBC (Bld) [#/Vol] 4.27 10*6/uL 4.6-6.2 [facility] Work Phone: Blood hemoglobin measurement (mass/volume)on 01-05-2022 Hemoglobin (Bld) [Mass/Vol] 11.2 g/dL 13.0-16.5 [facility] Work Phone: Blood platelet mean volumeon 01-05-2022 Platelet mean volume (Bld) [Entitic vol] 10.3 fL 6.2-12.0 [facility] Work Phone: Determination of erythrocyte mean corpuscular volume (MCV)on 01-05-2022 MCV (RBC) [Entitic vol] 84.8 fL 80-94 [facility] Work Phone: Hematocrit Auto (Bld) [Volum e fraction]on 01-05-2022 Hematocrit (Bld) [Volume fraction] 36.2 % 40-54 [facility] Work Phone: Laboratory - Chemistry and C hemistry - challengeon 01-05-2022 CO2 [Moles/Vol] 28.0 mmol/L 21.0-32.0 [facility] Work Phone: Urea nitrogen/Creatinine [Mass ratio] 20.0 mg/mg 10-20 [facility] Work Phone: Laboratory - Hematology and Cell countson 01-05-2022 Erythrocyte distribution width (RBC) [Entitic vol] 51.8 fL 35.1-43.9 [facility] Work Phone: Erythrocyte distribution width (RBC) [Ratio] 16.8 % 11.6-14.6 [facility] Work Phone: MCH (RBC) [Entitic mass] 26.2 pg 27.0-32.0 [facility] Work Phone: MCHC Auto (RBC) [Mass/Vol]on 01-05-2022 MCHC (RBC) [Mass/Vol] 30.9 g/dL 32-36 [facility] Work Phone: No Panel Informationon 01-05 Estimated GFR (MDRD) Amer 133 mL/min >60 [facility] Work Phone: Comment on above: GFR Calc Estimated GFR (MDRD) Non-Af Amer 110 mL/min >60 [facility] Work Phone: Comment on above: Non- GFR Calc Platelets bldon 01-05-2022 Platelets (Bld) [#/Vol] 373 10*3/uL 150-450 [facility] Work Phone: Serum or plasma calcium oral urement (mass/volume)on 01-05-2022 Calcium [Mass/Vol] 8.8 mg/dL 8.5-10.1 [facility] Work Phone: Serum or plasma creatinine m easurement (mass/volume)on 01-05-2022 Creatinine [Mass/Vol] 0.75 mg/dL 0.70-1.30 [facility] Work Phone: Comment on above: The validity of the calculated GFR & GFRAA in patients over 70 years has not been determined. Clinical correlation is essential. Serum or plasma urea nitroge n measurement (mass/volume)on 01-05-2022 Urea nitrogen [Mass/Vol] 15 mg/dL 7-18 [facility] Work Phone: Thin prep Papanicolaou smear with manual screeningon 01-05-2022 Thin prep Papanicolaou smear with manual screening 8 5-15 [facility] Work Phone: Laboratory - Coagulationon 0 12-30-2021 INR Coag (Bld) [Relative time] 2.0 {INR} [facility] Work Phone: Comment on above: Critical Value > 4.0 Whole blood prothrombin time on 12-30-2021 PT Coag (Bld) [Time] 23.7 s 11.7-14.9 [facility] Work Phone: Basophil percentageon 2021 Chloride [Moles/Vol] 106 mmol/L 98-107 [facility] Work Phone: Glucose [Mass/Vol] 91 mg/dL 74-106 [facility] Work Phone: Potassium [Moles/Vol] 3.4 mmol/L 3.5-5.1 [facility] Work Phone: Sodium [Moles/Vol] 141 mmol/L 136-145 [facility] Work Phone: WBC (Bld) [#/Vol] 10.2 10*3/uL 4.4-11.0 [facility] Work Phone: Blood erythrocytes count (nu mber/volume)on 12-28-2021 RBC (Bld) [#/Vol] 4.22 10*6/uL 4.6-6.2 [facility] Work Phone: Blood hemoglobin measurement (mass/volume)on 12-28-2021 Hemoglobin (Bld) [Mass/Vol] 11.2 g/dL 13.0-16.5 [facility] Work Phone: Blood platelet mean volumeon 12-28-2021 Platelet mean volume (Bld) [Entitic vol] 10.1 fL 6.2-12.0 [facility] Work Phone: Determination of erythrocyte mean corpuscular volume (MCV)on 12-28-2021 MCV (RBC) [Entitic vol] 82.7 fL 80-94 [facility] Work Phone: Hematocrit Auto (Bld) [Volum e fraction]on 12-28-2021 Hematocrit (Bld) [Volume fraction] 34.9 % 40-54 [facility] Work Phone: Laboratory - Chemistry and C hemistry - challengeon 12-28-2021 CO2 [Moles/Vol] 30.0 mmol/L 21.0-32.0 [facility] Work Phone: Urea nitrogen/Creatinine [Mass ratio] 33.7 mg/mg 10-20 [facility] Work Phone: Laboratory - Hematology and Cell countson 12-28-2021 Erythrocyte distribution width (RBC) [Entitic vol] 49.1 fL 35.1-43.9 [facility] Work Phone: Erythrocyte distribution width (RBC) [Ratio] 16.5 % 11.6-14.6 [facility] Work Phone: MCH (RBC) [Entitic mass] 26.5 pg 27.0-32.0 [facility] Work Phone: MCHC Auto (RBC) [Mass/Vol]on 12-28-2021 MCHC (RBC) [Mass/Vol] 32.1 g/dL 32-36 [facility] Work Phone: No Panel Informationon 12-28 Estimated GFR (MDRD) Amer 174 mL/min >60 [facility] Work Phone: Comment on above: GFR Calc Estimated GFR (MDRD) Non-Af Amer 143 mL/min >60 [facility] Work Phone: Comment on above: Non- GFR Calc Platelets bldon 12-28-2021 Platelets (Bld) [#/Vol] 339 10*3/uL 150-450 [facility] Work Phone: Serum or plasma calcium oral urement (mass/volume)on 12-28-2021 Calcium [Mass/Vol] 8.6 mg/dL 8.5-10.1 [facility] Work Phone: Serum or plasma creatinine m easurement (mass/volume)on 12-28-2021 Creatinine [Mass/Vol] 0.59 mg/dL 0.70-1.30 [facility] Work Phone: Comment on above: The validity of the calculated GFR & GFRAA in patients over 70 years has not been determined. Clinical correlation is essential. Serum or plasma urea nitroge n measurement (mass/volume)on 12-28-2021 Urea nitrogen [Mass/Vol] 20 mg/dL 7-18 [facility] Work Phone: Thin prep Papanicolaou smear with manual screeningon 12-28-2021 Thin prep Papanicolaou smear with manual screening 5 5-15 [facility] Work Phone: CULTURE BLOODon 12-27-2021 Microscopic examination of blood, culture CULTURE BLOOD --> Status: F No growth at 5 days. Normal [facility] Comment on above: Performed By: #### C /BLD #### [employer] [address] [place] [id number] Laboratory - Coagulationon 0 12-26-2021 INR Coag (Bld) [Relative time] 1.7 {INR} [facility] Work Phone: Comment on above: Critical Value > 4.0 Whole blood prothrombin time on 12-26-2021 PT Coag (Bld) [Time] 20.8 s 11.7-14.9 [facility] Work Phone: Basic Metabolic Panelon 12-05 Calcium [Mass/Vol] 8.8 mg/dL Normal 8.4-10.4 [facility] Comment on above: Performed By: #### C RP2, ESR, HEMDF, BMP3 ####[id number] [employer] [place], [place] Anion gap [Moles/Vol] 6 mmol/L Normal 3-13 [facility] Comment on above: Performed By: #### C RP2, ESR, HEMDF, BMP3 ####[id number] [employer] [place], [place] CO2 [Moles/Vol] 27 mmol/L Normal 22-30 [facility] Comment on above: Performed By: #### C RP2, ESR, HEMDF, BMP3 ####[facility] [employer] [place], [place] Glucose [Mass/Vol] 100 mg/dL Normal 70-100 [facility] Comment on above: Performed By: #### C RP2, ESR, HEMDF, BMP3 ####[id number] [employer] [place], [place] Urea nitrogen [Mass/Vol] 18 mg/dL High 7-17 [facility] Comment on above: Performed By: #### C RP2, ESR, HEMDF, BMP3 ####[email or web address] [employer] [place], [place] Creatinine [Mass/Vol] 0.73 mg/dL Normal 0.52-1.25 [facility] Comment on above: Performed By: #### C RP2, ESR, HEMDF, BMP3 ####[id number] [employer] [place], [place] eGFR OTHER > 90.0 Normal >60 [facility] Comment on above: Result Comment: KDIG [...] By: #### C RP2, ESR, HEMDF, BMP3 ####[id number] [place], [place] GFR/1.73 sq M.predicted among blacks MDRD (S/P/Bld) [Vol rate/Area] mL/min/{1.73_m2} Normal >60 [facility] Comment on above: Performed By: #### C RP2, ESR, HEMDF, BMP3 ####[address] Potassium [Moles/Vol] 3.7 mmol/L Normal 3.5-5.1 [facility] Comment on above: Performed By: #### C RP2, ESR, HEMDF, BMP3 ####[address] Chloride [Moles/Vol] 106 mmol/L Normal 98-107 [facility] Comment on above: Performed By: #### C RP2, ESR, HEMDF, BMP3 ####[address] [place], [place] Sodium [Moles/Vol] 139 mmol/L Normal 135-145 [facility] Comment on above: Performed By: #### C RP2, ESR, HEMDF, BMP3 ####[address] Anion gap [Moles/Vol] 6 mmol/L 3 - 13 mmol/L [facility] Calcium [Mass/Vol] 8.8 mg/dL 8.4 - 10. 4 mg/dL [facility] Chloride [Moles/Vol] 106 mmol/L 98 - 10 7 mmol/L [facility] CO2 [Moles/Vol] 27 mmol/L 22 - 30 mmol/L [facility] Creatinine [Mass/Vol] 0.73 mg/dL 0.52 - 1.25 mg/dL [facility] eGFR mL/min 60 - P INF mL/min [facility] EGFR IF NonAfrican Montenegrin mL/min 60 - PINF mL/min [facility] Comment [...] 2021 Basophil percentage 25-50 SEEN /hpf 0-5 [facility] Work Phone: Chloride [Moles/Vol] 106 mmol/L 98-[address] [facility] Work Phone: Glucose [Mass/Vol] 93 mg/dL 74-106 [facility] Work Phone: Potassium [Moles/Vol] 3.5 mmol/L 3.5-5.1 [facility] Work Phone: Sodium [Moles/Vol] 140 mmol/L 136-145 [facility] Work Phone: WBC (Bld) [#/Vol] 9.6 10*3/uL 4.4-11.0 [facility] Work Phone: Bilirubin Test strip Ql (U)o n 12-22-2021 Bilirubin Ql (U) Negative Negative [facility] Work Phone: Blood erythrocytes count (nu mber/volume)on 12-22-2021 RBC (Bld) [#/Vol] 4.34 10*6/uL 4.6-6.2 [facility] Work Phone: Blood hemoglobin measurement (mass/volume)on 12-22-2021 Hemoglobin (Bld) [Mass/Vol] 11.5 g/dL 13.0-16.5 [facility] Work Phone: Blood platelet mean volumeon 12-22-2021 Platelet mean volume (Bld) [Entitic vol] 10.8 fL 6.2-12.0 [facility] Work Phone: C-Reactive Proteinon 022 CRP [Mass/Vol] 27.2 mg/L High 0.0-9.9 [facility] Comment on above: Result Comment: . Performed By: #### C RP2, ESR, HEMDF, BMP3 ####[facility] [employer] [id number] [place] [address] CRP [Mass/Vol] 27.2 mg/L High 0 - 9.9 mg/L [facility] Comment on above: . CBC with Auto [...] [#/Vol] 10.1 10*3/uL 3.6 - 10.7 10*3/uL [facility] Test Performed by [facility], [address] [place] [id number] [place] [address] LAB [facility] COVID-19, Flu A/B, and RSV C [facility] 12-22-2021 Influenza A by PCR Not detected [facility] Influenza B by PCR Not detected [facility] RSV PCR Not Detected. Expected Result: Not Detected _ Method: Real-time, RT-PCR This assay was developed by [email or web address] and distributed under an Emergency Use Authorization (EUA) granted by the FDA for the qualitative detection of nucleic acids from SARS-CoV-2, Influenza A, Influenza B, and Respiratory Syncytial Virus. Provider and patient fact sheets can be found at https://www.fda.gov/media /253006/download and https://www.fda.gov/media /450911/download. [facility] SARS-CoV-2 (COVID-19) RNA MEGAN+probe Ql (Unsp spec) Not detected [facility] Test Performed by [facility], [address] [place] [address] LAB [facility] CR Foot Complete 3+ Views [place] 12-22-2021 CR Foot Complete 3+ Views Left Patient Name: ANDREW SIFUENTES Diagnostic Radiology ACCESSION EXAM DATE/TIME PROCEDURE ORDERING PROVIDER [id number] 12/22/2021 00:09 EDT CR Foot Complete 3+ SANDY HIDALGO, HENRY Godoy Views Left CPT code 32316 Reason For Exam (CR Foot Complete 3+ [...] Transcribed Date and Time: 12/22/2021 0:21 Normal [facility] Calcium oxalate crystals det ection in urine sediment by light microscopyon 12-22-2021 Calcium oxalate crystals LM Ql (Urine sed) 1+ /hpf [facility] Work Phone: Determination of erythrocyte mean corpuscular volume (MCV)on 12-22-2021 MCV (RBC) [Entitic vol] 84.3 fL 80-94 [facility] Work Phone: ED Provider Noteon 2 ED Provider Note Emergency Department Encounter [facility] EMERGENCY DEPT Patient: Andrew Sifuentes : [...] leg for a while. According to EMS longterm staff completed x-ray of the lower extremity and there was concern for osteomyelitis hence transferring patient to the hospital. Patient states this time the wounds on the left lower extremity for extended period of time. He denies fevers or chills. Patient states longterm staff have been taking care of the wound for him. Focused exam: Blood pressure 108/67, pulse 77, temperature 97.9 ?F (36.6 ?C), temperature source Oral, resp. rate 16, height 5' 9" (1.753 m), weight 79.4 kg (175 lb), SpO2 96 %. [id number] in no acute distress. Alert and oriented [...] [employer] [place] Olivia MD 12/22/21 0305 [facility] ED Provider Note [facility] EMERGENCY DEPT EMERGENCY DEPARTMENT ENCOUNTER Pt Name: Andrew Sifuentes Birthdate 1950 Date of evaluation: 12/21/2021 Provider: SANIA Lou CHIEF COMPLAINT Chief Complaint Patient presents with Osteomyelitis Patient from [facility], facility did xrays on left lower leg and and have concerns for possible osteomyelitis A&Ox2 to self and place, stated year 2022 pres[facility]ini HISTORY OF PRESENT ILLNESS (Location/Symptom, Timing/Onset, Context/Setting, Quality,Duration, Modifying Factors, Severity) Note limiting factors. 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 Tenderness: (more content not included)... Normal [facility] Hematocrit Auto (Bld) [Volum e fraction]on 12-22-2021 Hematocrit (Bld) [Volume fraction] 36.6 % 40-54 [facility] Work Phone: Hemogram w/ Autodiffon 12-22 Abs Baso Cnt 0.1 10*3/uL Normal 0.0-0.2 [facility] Comment on above: Performed By: #### C RP2, ESR, HEMDF, BMP3 ####[facility] [employer] [id number] [place] [address] Abs Neutrophile Cnt 5.9 10*3/uL Normal 1.8-7.0 [facility] Comment on above: Performed By: #### C RP2, ESR, HEMDF, BMP3 ####[facility] [place] [address] Basophils/100 WBC (Bld) 0.7 % Normal 0.0-2.0 [facility] Comment on above: Performed By: #### C RP2, ESR, HEMDF, BMP3 ####[facility] [employer] [id number] [place] [address] Eosinophils (Bld) [#/Vol] 0.2 10*3/uL Normal 0.0-0.5 [facility] Comment on above: Performed By: #### C RP2, ESR, HEMDF, BMP3 ####[address] [place] [address] Eosinophils/100 WBC (Bld) 2.3 % Normal 1.0-6.0 [facility] Comment on above: Performed By: #### C RP2, ESR, HEMDF, BMP3 ####[address] [address] Erythrocyte distribution width (RBC) [Ratio] 17.5 % High 11.5-14.5 [facility] Comment on above: Performed By: #### C RP2, ESR, HEMDF, BMP3 ####[address] [place] [address] Granulocytes/100 WBC (Bld) 57.8 % Normal 40.0-80.0 [facility] Comment on above: Performed By: #### C RP2, ESR, HEMDF, BMP3 ####[address] [address] Hematocrit (Bld) [Volume fraction] 33.3 % Low 40.0-52.0 [facility] Comment on above: Performed By: #### C RP2, ESR, HEMDF, BMP3 ####[address] [address] Hemoglobin (Bld) [Mass/Vol] 11.0 g/dL Low 13.0-18.0 [facility] Comment on above: Performed By: #### C RP2, ESR, HEMDF, BMP3 ####[address] [address] Lymphocytes (Bld) [#/Vol] 3.3 10*3/uL Normal 1.0-4.3 [facility] Comment on above: Performed By: #### C RP2, ESR, HEMDF, BMP3 ####[address] [address] Lymphocytes/100 WBC (Bld) 33.0 % Normal 20.0-40.0 [facility] Comment on above: Performed By: #### C RP2, ESR, HEMDF, BMP3 ####[address] MCH (RBC) [Entitic mass] 26.5 pg Normal 26.0-34.0 [facility] Comment on above: Performed By: #### C RP2, ESR, HEMDF, BMP3 ####[address] MCHC 33.1 % Normal 32.0-36.0 [facility] Comment on above: Performed By: #### C RP2, ESR, HEMDF, BMP3 ####[address] [place], [place] MCV (RBC) [Entitic vol] 80.2 fL Normal 80.0-98.0 [facility] Comment on above: Performed By: #### C RP2, ESR, HEMDF, BMP3 ####[address] Monocytes (Bld) [#/Vol] 0.6 10*3/uL Normal 0.0-0.8 [facility] Comment on above: Performed By: #### C RP2, ESR, HEMDF, BMP3 ####[address] Monocytes/100 WBC (Bld) 6.2 % Normal 2.0-10.0 [facility] Comment on above: Performed By: #### C RP2, ESR, HEMDF, BMP3 ####[address] Platelet mean volume (Bld) [Entitic vol] 8.0 fL Normal 7.4-12.4 [facility] Comment on above: Result Comment: MPV is a calculated measurement using platelet volume ratio. Performed By: #### C RP2, ESR, HEMDF, BMP3 ####[address] [place], [place] Platelets (Bld) [#/Vol] 368 10*3/uL Normal 140-440 [facility] Comment on above: Performed By: #### C RP2, ESR, HEMDF, BMP3 ####[facility] [place], [place] RBC (Bld) [#/Vol] 4.15 10*6/uL Low 4.40-5.90 [facility] Comment on above: Performed By: #### C RP2, ESR, HEMDF, BMP3 ####[facility] [place], [place] WBC (Bld) [#/Vol] 10.1 10*3/uL Normal 3.6-10.7 [facility] Comment on above: Performed By: #### C RP2, ESR, HEMDF, BMP3 ####[facility] [place], [place] Ketones Test strip Ql (U)on 12-22-2021 Ketones Ql (U) Negative Negative [facility] Work Phone: Laboratory - Chemistry and C hemistry - challengeon 12-22-2021 CO2 [Moles/Vol] 27.0 mmol/L 21.0-32.0 [facility] Work Phone: Urea nitrogen/Creatinine [Mass ratio] 22.5 mg/mg 10-20 [facility] Work Phone: Laboratory - Hematology and Cell countson 12-22-2021 Erythrocyte distribution width (RBC) [Entitic vol] 49.1 fL 35.1-43.9 [facility] Work Phone: Erythrocyte distribution width (RBC) [Ratio] 16.1 % 11.6-14.6 [facility] Work Phone: MCH (RBC) [Entitic mass] 26.5 pg 27.0-32.0 [facility] Work Phone: MCHC Auto (RBC) [Mass/Vol]on 12-22-2021 MCHC (RBC) [Mass/Vol] 31.4 g/dL 32-36 [facility] Work Phone: Mucus LM Ql (Urine sed)on Mucus Ql (Urine sed) 0 SEEN /hpf [facility] Work Phone: Nitrite Test strip Ql (U)on 12-22-2021 Nitrite Ql (U) Positive Negative [facility] Work Phone: No Panel Informationon 12-22 Estimated GFR (MDRD) Amer 152 mL/min >60 [facility] Work Phone: Comment on above: GFR Calc Estimated GFR (MDRD) Non-Af Amer 125 mL/min >60 [facility] Work Phone: Comment on above: Non- GFR Calc Interpretation and review of laboratory results Abnormal [facility] Test Performed by [address] [address] [facility] Platelets bldon 12-22-2021 Platelets (Bld) [#/Vol] 317 10*3/uL 150-450 [facility] Work Phone: Protein Test strip Ql (U)on 12-22-2021 Protein Ql (U) 30 mg/dl Negative [facility] Work Phone: SARS-CoV-2, Flu A/B and RSVo n 12-22-2021 SARS-CoV-2 (COVID-19) RNA MEGAN+probe Ql (Unsp spec) SARS-CoV-2 --> Status: F Not Detected. Flu A PCR --> Status: F Not Detected. Flu B PCR --> Status: F Not Detected. RSV PCR --> Status: F Not Detected. Expected Result: Not Detected _ Method: Real-time, RT-PCR This assay was developed by [email or web address] and distributed under an Emergency Use Authorization (EUA) granted by the FDA for the qualitative detection of nucleic acids from SARS-CoV-2, Influenza A, Influenza B, and Respiratory Syncytial Virus. Provider and patient fact sheets can be found at https://www.fda.gov/media /163596/download and https://www.fda.gov/media /330068/download. Expected Result: Not Detected _ Method: Real-time, RT-PCR This assay was developed by [email or web address] and distributed under an Emergency Use Authorization (EUA) granted by the FDA for the qualitative detection of nucleic acids from SARS-CoV-2, Influenza A, Influenza B, and Respiratory Syncytial Virus. Provider and patient fact sheets can be found at https://www.fda.gov/media /740571/download and https://www.fda.gov/media /837694/download. Normal [facility] Comment on above: Performed By: #### C VFLR ####[facility] [place] [address], [address] Sed Rateon 12-22-2021 Sed Rate 48 mm/h High 0-10 [facility] Comment on above: Performed By: #### C RP2, ESR, HEMDF, BMP3 ####[facility] [place] [address] Sedimentation Rateon 022 Interpretation and review of laboratory results Abnormal [facility] Sed Rate 48 mm/h High 0 - 10 mm/h [facility] Test Performed by [facility], [facility] [place] [address] [facility] Serum or plasma calcium oral urement (mass/volume)on 12-22-2021 Calcium [Mass/Vol] 8.6 mg/dL 8.5-10.1 [facility] Work Phone: Serum or plasma creatinine m easurement (mass/volume)on 12-22-2021 Creatinine [Mass/Vol] 0.67 mg/dL 0.70-1.30 [facility] Work Phone: Comment on above: The validity of the calculated GFR & GFRAA in patients over 72 years has not been determined. Clinical correlation is essential. Serum or plasma urea nitroge n measurement (mass/volume)on 12-22-2021 Urea nitrogen [Mass/Vol] 15 mg/dL 11-21 [facility] Work Phone: Squamous epithelial cells de tection in urine sediment by light microscopyon 12-22-2021 Epithelial cells.squamous LM Ql (Urine sed) 0-5 SEEN /hpf 0-5 [facility] Work Phone: Thin prep Papanicolaou smear with manual screeningon 12-22-2021 Thin prep Papanicolaou smear with manual screening 7 5-15 [facility] Work Phone: Urine blood detectionon 12-05 RBC Ql (U) 150 /ul Negative [facility] Work Phone: RBC Ql (U) 10-25 SEEN /hpf 0-5 [facility] Work Phone: Urine clarityon 12-22-2021 Clarity (U) Sl. Cloudy Clear [facility] Work Phone: Urine color determinationon 12-22-2021 Color (U) Yellow Yellow [facility] Work Phone: Urine glucose detectionon Glucose Ql (U) Normal mg/dl Normal [facility] Work Phone: Urine leukocyte esterase det ection by dipstickon 12-22-2021 Leukocyte esterase Test strip Ql (U) 500 /ul Negative [facility] Work Phone: Urine pHon 12-22-2021 pH (U) 6.0 [pH] 5.0 - 8.0 [facility] Work Phone: Urine sediment bacteria coun t by microscopy (number/high power field)on 12-22-2021 Bacteria LM.HPF (Urine sed) [#/Area] 2 /[HPF] None Seen [facility] Work Phone: Urine specific gravity measu rementon 12-22-2021 Specific gravity (U) [Rel density] 1.020 1.002-1.030 [facility] Work Phone: Urobilinogen Auto test strip Ql (U)on 12-22-2021 Urobilinogen Ql (U) Normal mg/dl Normal [facility] Work Phone: XR FOOT LEFT (MIN 3 VIEWS)on 12-22-2021 Patient Name: ANDREW SIFUENTES Diagnostic Radiology ACCESSION EXAM DATE/TIME PROCEDURE ORDERING PROVIDER [id number] 12/22/2021 00:09 EDT CR Foot Complete 3+ SANDY HIDALGO JOHN M Views Left CPT code 91637 Reason For Exam (CR Foot Complete 3+ [...] JEFFREY Transcribed Date and Time: 12/22/2021 0:21 [facility] Albert Solano MD - 12/22/2021 [id number]iology ACCESSION EXAM DATE/TIME PROCEDURE ORDERING PROVIDER [id number] 12/22/2021 00:09 EDT CR Foot Complete 3+ SANDY HIDALGO JOHN M Views Left CPT code 70160 Reason For Exam (CR Foot Complete 3+ [...] JEFFREY Transcribed Date and Time: 12/22/2021 0:21 [facility] Work Phone: Radiology Study observation (narrative) [facility] Work Phone: XR FOOT LEFT (MIN 3 VIEWS)Or dered By: Albert Solano on 12-22-2021 [facility] Work Phone: Basophil percentageon 2021 Chloride [Moles/Vol] 103 mmol/L 98-107 [facility] Work Phone: Glucose [Mass/Vol] 92 mg/dL 74-106 [facility] Work Phone: Potassium [Moles/Vol] 3.5 mmol/L 3.5-5.1 [facility] Work Phone: Sodium [Moles/Vol] 138 mmol/L 136-145 [facility] Work Phone: [phone] WBC (Bld) [#/Vol] 11.2 10*3/uL 4.4-11.0 [facility] Work Phone: [phone] Blood erythrocytes count (nu mber/volume)on 12-19-2021 RBC (Bld) [#/Vol] 4.50 10*6/uL 4.6-6.2 [facility] Work Phone: [phone] Blood hemoglobin measurement (mass/volume)on 12-19-2021 Hemoglobin (Bld) [Mass/Vol] 12.2 g/dL 13.0-16.5 [facility] Work Phone: Blood platelet mean volumeon 12-19-2021 Platelet mean volume (Bld) [Entitic vol] 11.3 fL 6.2-12.0 [facility] Work Phone: Determination of erythrocyte mean corpuscular volume (MCV)on 12-19-2021 MCV (RBC) [Entitic vol] 85.6 fL 80-94 [facility] Work Phone: Hematocrit Auto (Bld) [Volum e fraction]on 12-19-2021 Hematocrit (Bld) [Volume fraction] 38.5 % 40-54 [facility] Work Phone: Laboratory - Chemistry and C hemistry - challengeon 12-19-2021 CO2 [Moles/Vol] 30.0 mmol/L 21.0-32.0 [facility] Work Phone: Urea nitrogen/Creatinine [Mass ratio] 27.1 mg/mg 10-20 [facility] Work Phone: Laboratory - Hematology and Cell countson 12-19-2021 Erythrocyte distribution width (RBC) [Entitic vol] 50.5 fL 35.1-43.9 [facility] Work Phone: Erythrocyte distribution width (RBC) [Ratio] 16.0 % 11.6-14.6 [facility] Work Phone: MCH (RBC) [Entitic mass] 27.1 pg 27.0-32.0 [facility] Work Phone: MCHC Auto (RBC) [Mass/Vol]on 12-19-2021 MCHC (RBC) [Mass/Vol] 31.7 g/dL 32-36 [facility] Work Phone: No Panel Informationon 12-19 Estimated GFR (MDRD) Amer 153 mL/min >60 [facility] Work Phone: Comment on above: GFR Calc Estimated GFR (MDRD) Non-Af Amer 126 mL/min >60 [facility] Work Phone: Comment on above: Non- GFR Calc Platelets bldon 12-19-2021 Platelets (Bld) [#/Vol] 363 10*3/uL 150-450 [facility] Work Phone: Serum or plasma calcium oral urement (mass/volume)on 12-19-2021 Calcium [Mass/Vol] 9.5 mg/dL 8.5-10.1 [facility] Work Phone: Serum or plasma creatinine m easurement (mass/volume)on 12-19-2021 Creatinine [Mass/Vol] 0.66 mg/dL 0.70-1.30 [facility] Work Phone: Comment on above: The validity of the calculated GFR & GFRAA in patients over 70 years has not been determined. Clinical correlation is essential. Serum or plasma urea nitroge n measurement (mass/volume)on 12-19-2021 Urea nitrogen [Mass/Vol] 18 mg/dL 7-18 [facility] Work Phone: Thin prep Papanicolaou smear with manual screeningon 12-19-2021 Thin prep Papanicolaou smear with manual screening 09 08- [facility] Work Phone: Laboratory - Coagulationon 0 12-12-2021 INR Coag (Bld) [Relative time] 2.0 {INR} [facility] Work Phone: Comment on above: Critical Value > 4.0 Whole blood prothrombin time on 12-12-2021 PT Coag (Bld) [Time] 23.9 s 11.7-14.9 [facility] Work Phone: ANES POSTPROC EVALon 022 ANES POSTPROC EVAL Normal [facility] - Coagulationon 0 12-08-2021 INR Coag (Bld) [Relative time] 1.8 {INR} [facility] Work Phone: Comment on above: Critical Value > 4.0 Whole blood prothrombin time on 12-08-2021 PT Coag (Bld) [Time] 21.0 s 11.7-14.9 [facility] Work Phone: Absolute lymphocyte counton 08-01-2022 Lymphocytes Auto (Unsp spec) [#/Vol] 2.97 10*3/uL 0.83-4.51 [facility] Work Phone: Basophil percentageon 2021 Basophils/100 WBC (Bld) 0.6 % 0-1 [facility] Work Phone: Chloride [Moles/Vol] 106 mmol/L 98-107 [facility] Work Phone: Eosinophils/100 WBC (Bld) 2.3 % 0-5 [facility] Work Phone: Glucose [Mass/Vol] 107 mg/dL 74-106 [facility] Work Phone: [phone] Comment on above: Fasting Glucose resu lt from 100 to 125 mg/dL suggests IMPAIRED HOMEOSTASIS per A.D.A. criteria. Neutrophils (Bld) [#/Vol] 5.6 10*3/uL 2.0-7.7 [facility] Work Phone: Neutrophils/100 WBC (Bld) 60.2 % 47-70 [facility] Work Phone: Potassium [Moles/Vol] 3.4 mmol/L 3.5-5.1 [facility] Work [facility]: Sodium [Moles/Vol] 139 mmol/L 136-145 [facility] Work Phone: WBC (Bld) [#/Vol] 9.3 10*3/uL 4.4-11.0 [facility] Work Phone: [phone] Blood erythrocytes count (nu mber/volume)on 12-05-2021 RBC (Bld) [#/Vol] 4.49 10*6/uL 4.6-6.2 [facility] Work Phone: [phone] Blood hemoglobin measurement (mass/volume)on 12-05-2021 Hemoglobin (Bld) [Mass/Vol] 12.1 g/dL 13.0-16.5 [facility] Work Phone: Blood lymphocytes/100 leukoc yteson 12-05-2021 Lymphocytes/100 WBC (Bld) 32.0 % 19-41 [facility] Work Phone: Blood monocytes/100 leukocyt eson 12-05-2021 Monocytes/100 WBC (Bld) 4.7 % 0-10 [facility] Work Phone: Blood platelet mean volumeon 12-05-2021 Platelet mean volume (Bld) [Entitic vol] 10.8 fL 6.2-12.0 [facility] Work Phone: Determination of erythrocyte mean corpuscular volume (MCV)on 12-05-2021 MCV (RBC) [Entitic vol] 84.9 fL 80-94 [facility] Work Phone: Hematocrit Auto (Bld) [Volum e fraction]on 12-05-2021 Hematocrit (Bld) [Volume fraction] 38.1 % 40-54 [facility] Work Phone: INR in Blood by Coagulation assayon 12-05-2021 INR Coag (Bld) [Relative time] 1.8 {INR} [facility] Work Phone: Laboratory - Chemistry and C hemistry - challengeon 12-05-2021 CO2 [Moles/Vol] 29.0 mmol/L 21.0-32.0 [facility] Work Phone: Urea nitrogen/Creatinine [Mass ratio] 25.4 mg/mg 10-20 [facility] Work Phone: Laboratory - Coagulationon 0 12-05-2021 PT Coag (PPP) [Time] 20.5 s 11.7-14.9 [facility] Work Phone: Laboratory - Hematology and Cell countson 12-05-2021 Erythrocyte distribution width (RBC) [Entitic vol] 48.5 fL 35.1-43.9 [facility] Work Phone: Erythrocyte distribution width (RBC) [Ratio] 15.7 % 11.6-14.6 [facility] Work Phone: Immature granulocytes/100 WBC (Bld) 0.200 % 0.0-0.9 [facility] Work Phone: Comment on above: IG% - Immature Granu locytes (promyelocytes, myelocytes and metamyelocytes) > 1% indicates that a LEFT SHIFT is Present. MCH (RBC) [Entitic mass] 26.9 pg 27.0-32.0 [facility] Work Phone: Nucleated RBC/100 WBC (Bld) [Ratio] 0 % 0-5 [facility] Work Phone: MCHC Auto (RBC) [Mass/Vol]on 12-05-2021 MCHC (RBC) [Mass/Vol] 31.8 g/dL 32-36 [facility] Work Phone: No Panel Informationon 12-05 Estimated GFR (MDRD) Amer 133 mL/min >60 [facility] Work Phone: Comment on above: GFR Calc Estimated GFR (MDRD) Non-Af Amer 110 mL/min >60 [facility] Work Phone: Comment on above: Non- GFR Calc Platelets bldon 12-05-2021 Platelets (Bld) [#/Vol] 363 10*3/uL 150-450 [facility] Work Phone: Serum or plasma calcium oral urement (mass/volume)on 12-05-2021 Calcium [Mass/Vol] 9.4 mg/dL 8.5-10.1 [facility] Work Phone: Serum or plasma creatinine m easurement (mass/volume)on 12-05-2021 Creatinine [Mass/Vol] 0.75 mg/dL 0.70-1.30 [facility] Work Phone: Comment on above: The validity of the calculated GFR & GFRAA in patients over 70 years has not been determined. Clinical correlation is essential. Serum or plasma urea nitroge n measurement (mass/volume)on 12-05-2021 Urea nitrogen [Mass/Vol] 19 mg/dL 7-18 [facility] Work Phone: Thin prep Papanicolaou smear with manual screeningon 12-05-2021 Thin prep Papanicolaou smear with manual screening 4 5-15 [facility] Work Phone: Basophil percentageon 2021 Basophil percentage 0 SEEN /hpf 0-5 [facility] Work Phone: Chloride [Moles/Vol] 104 mmol/L 98-107 [facility] Work Phone: Glucose [Mass/Vol] 90 mg/dL 74-106 [facility] Work Phone: Potassium [Moles/Vol] 3.7 mmol/L 3.5-5.1 [facility] Work Phone: Comment on above: Slight Hemolysis, Re sult may be falsely increased. Sodium [Moles/Vol] 138 mmol/L 136-145 [facility] Work Phone: WBC (Bld) [#/Vol] 10.7 10*3/uL 4.4-11.0 [facility] Work Phone: Bilirubin Test strip Ql (U)o n 12-01-2021 Bilirubin Ql (U) Negative Negative [facility] Work Phone: Blood erythrocytes count (nu mber/volume)on 12-01-2021 RBC (Bld) [#/Vol] 4.33 10*6/uL 4.6-6.2 [facility] Work Phone: Blood hemoglobin measurement (mass/volume)on 12-01-2021 Hemoglobin (Bld) [Mass/Vol] 11.6 g/dL 13.0-16.5 [facility] Work Phone: Blood platelet mean volumeon 12-01-2021 Platelet mean volume (Bld) [Entitic vol] 11.2 fL 6.2-12.0 [facility] Work Phone: Determination of erythrocyte mean corpuscular volume (MCV)on 12-01-2021 MCV (RBC) [Entitic vol] 85.2 fL 80-94 [facility] Work Phone: Hematocrit Auto (Bld) [Volum e fraction]on 12-01-2021 Hematocrit (Bld) [Volume fraction] 36.9 % 40-54 [facility] Work Phone: Ketones Test strip Ql (U)on 12-01-2021 Ketones Ql (U) Negative Negative [facility] Work Phone: Laboratory - Chemistry and C hemistry - challengeon 12-01-2021 CO2 [Moles/Vol] 27.0 mmol/L 21.0-32.0 [facility] Work Phone: Urea nitrogen/Creatinine [Mass ratio] 24.0 mg/mg 10-20 [facility] Work Phone: Laboratory - Coagulationon 0 12-01-2021 INR Coag (Bld) [Relative time] 1.6 {INR} [facility] Work Phone: Comment on above: Critical Value > 4.0 Laboratory - Hematology and Cell countson 12-01-2021 Erythrocyte distribution width (RBC) [Entitic vol] 47.9 fL 35.1-43.9 [facility] Work Phone: Erythrocyte distribution width (RBC) [Ratio] 15.5 % 11.6-14.6 [facility] Work Phone: MCH (RBC) [Entitic mass] 26.8 pg 27.0-32.0 [facility] Work Phone: MCHC Auto (RBC) [Mass/Vol]on 12-01-2021 MCHC (RBC) [Mass/Vol] 31.4 g/dL 32-36 [facility] Work Phone: Mucus LM Ql (Urine sed)on Mucus Ql (Urine sed) 0 SEEN /hpf [facility] Work Phone: Nitrite Test strip Ql (U)on 12-01-2021 Nitrite Ql (U) Negative Negative [facility] Work Phone: No Panel Informationon 12-01 Estimated GFR (MDRD) Amer 133 mL/min >60 [facility] Work Phone: Comment on above: GFR Calc Estimated GFR (MDRD) Non-Af Amer 110 mL/min >60 [facility] Work Phone: Comment on above: Non- GFR Calc Platelets bldon 12-01-2021 Platelets (Bld) [#/Vol] 336 10*3/uL 150-450 [facility] Work Phone: Protein Test strip Ql (U)on 12-01-2021 Protein Ql (U) 30 mg/dl Negative [facility] Work Phone: Serum or plasma calcium oral urement (mass/volume)on 12-01-2021 Calcium [Mass/Vol] 9.4 mg/dL 8.5-10.1 [facility] Work Phone: Serum or plasma creatinine m easurement (mass/volume)on 12-01-2021 Creatinine [Mass/Vol] 0.75 mg/dL 0.70-1.30 [facility] Work Phone: Comment on above: The validity of the calculated GFR & GFRAA in patients over 70 years has not been determined. Clinical correlation is essential. Serum or plasma urea nitroge n measurement (mass/volume)on 12-01-2021 Urea nitrogen [Mass/Vol] 18 mg/dL 7-18 [facility] Work Phone: Squamous epithelial cells de tection in urine sediment by light microscopyon 12-01-2021 Epithelial cells.squamous LM Ql (Urine sed) 0-5 SEEN /hpf 0-5 [facility] Work Phone: Thin prep Papanicolaou smear with manual screeningon 12-01-2021 Thin prep Papanicolaou smear with manual screening 7 5-15 [facility] Work Phone: Urine blood detectionon 11-05 RBC Ql (U) Negative Negative [facility] Work Phone: RBC Ql (U) 0 SEEN /hpf 0-5 [facility] Work Phone: Urine clarityon 12-01-2021 Clarity (U) Clear Clear [facility] Work Phone: Urine color determinationon 12-01-2021 Color (U) Yellow Yellow [facility] Work Phone: Urine glucose detectionon Glucose Ql (U) 50 mg/dl Normal [facility] Work Phone: Urine leukocyte esterase det ection by dipstickon 12-01-2021 Leukocyte esterase Test strip Ql (U) Negative Negative [facility] Work Phone: Urine pHon 12-01-2021 pH (U) 6.0 [pH] 5.0 - 8.0 [facility] Work Phone: Urine sediment bacteria coun t by microscopy (number/high power field)on 12-01-2021 Bacteria LM.HPF (Urine sed) [#/Area] 0 /[HPF] None Seen [facility] Work Phone: Urine sediment yeast count b y microscopy (number/high powered field)on 12-01-2021 Yeast LM.HPF (Urine sed) [#/Area] 2 /[HPF] None Seen [facility] Work Phone: Urine specific gravity measu rementon 12-01-2021 Specific gravity (U) [Rel density] 1.010 1.002-1.030 [facility] Work Phone: Urobilinogen Auto test strip Ql (U)on 12-01-2021 Urobilinogen Ql (U) Normal mg/dl Normal [facility] Work Phone: Whole blood prothrombin time on 12-01-2021 PT Coag (Bld) [Time] 19.8 s 11.7-14.9 [facility] Work Phone: Laboratory - Coagulationon 0 11-28-2021 INR Coag (Bld) [Relative time] 1.6 {INR} [facility] Work Phone: Comment on above: Critical Value > 4.0 Whole blood prothrombin time on 11-28-2021 PT Coag (Bld) [Time] 18.8 s 11.7-14.9 [facility] Work Phone: INR in Blood by Coagulation assayon 11-23-2021 INR Coag (Bld) [Relative time] 2.7 {INR} [facility] Work Phone: Laboratory - Coagulationon 0 11-23-2021 PT Coag (PPP) [Time] 28.0 s 11.7-14.9 [facility] Work Phone: Laboratory - Coagulationon 0 11-22-2021 INR Coag (Bld) [Relative time] 3.8 {INR} [facility] Work Phone: Comment on above: Critical Value > 4.0 Whole blood prothrombin time on 11-22-2021 PT Coag (Bld) [Time] 42.8 s 11.7-14.9 [facility] Work Phone: INR in Blood by Coagulation assayon 11-21-2021 INR Coag (Bld) [Relative time] 3.9 {INR} [facility] Work Phone: Laboratory - Coagulationon 0 11-21-2021 PT Coag (PPP) [Time] 37.7 s 11.7-14.9 [facility] Work Phone: Whole blood prothrombin time on 11-21-2021 PT Coag (Bld) [Time] 45.5 s 11.7-14.9 [facility] Work Phone: INR in Blood by Coagulation assayon 11-14-2021 INR Coag (Bld) [Relative time] 3.1 {INR} [facility] Work Phone: Laboratory - Coagulationon 0 11-14-2021 PT Coag (PPP) [Time] 31.4 s 11.7-14.9 [facility] Work Phone: Laboratory - Coagulationon 0 11-08-2021 INR Coag (Bld) [Relative time] 2.5 {INR} [facility] Work Phone: Comment on above: Critical Value > 4.0 Whole blood prothrombin time on 11-08-2021 PT Coag (Bld) [Time] 29.0 s 11.7-14.9 [facility] Work Phone: Basophil percentageon 2021 Chloride [Moles/Vol] 106 mmol/L 98-107 [facility] Work Phone: Glucose [Mass/Vol] 100 mg/dL 74-106 [facility] Work Phone: Comment on above: Fasting Glucose resu lt from 100 to 125 mg/dL suggests IMPAIRED HOMEOSTASIS per A.D.A. criteria. Potassium [Moles/Vol] 3.7 mmol/L 3.5-5.1 [facility] Work Phone: Sodium [Moles/Vol] 140 mmol/L 136-145 [facility] Work Phone: WBC (Bld) [#/Vol] 8.8 10*3/uL 4.4-11.0 [facility] Work Phone: Blood erythrocytes count (nu mber/volume)on 11-04-2021 RBC (Bld) [#/Vol] 4.05 10*6/uL 4.6-6.2 [facility] Work Phone: Blood hemoglobin measurement (mass/volume)on 11-04-2021 Hemoglobin (Bld) [Mass/Vol] 11.1 g/dL 13.0-16.5 [facility] Work Phone: Blood platelet mean volumeon 11-04-2021 Platelet mean volume (Bld) [Entitic vol] 10.8 fL 6.2-12.0 [facility] Work Phone: Determination of erythrocyte mean corpuscular volume (MCV)on 11-04-2021 MCV (RBC) [Entitic vol] 86.9 fL 80-94 [facility] Work Phone: Hematocrit Auto (Bld) [Volum e fraction]on 11-04-2021 Hematocrit (Bld) [Volume fraction] 35.2 % 40-54 [facility] Work Phone: INR in Blood by Coagulation assayon 11-04-2021 INR Coag (Bld) [Relative time] 1.8 {INR} [facility] Work Phone: Laboratory - Chemistry and C hemistry - challengeon 11-04-2021 CO2 [Moles/Vol] 26.0 mmol/L 21.0-32.0 [facility] Work Phone: Urea nitrogen/Creatinine [Mass ratio] 18.3 mg/mg 10-20 [facility] Work Phone: Laboratory - Coagulationon 0 11-04-2021 PT Coag (PPP) [Time] 20.4 s 11.7-14.9 [facility] Work Phone: Laboratory - Hematology and Cell countson 11-04-2021 Erythrocyte distribution width (RBC) [Entitic vol] 48.1 fL 35.1-43.9 [facility] Work Phone: Erythrocyte distribution width (RBC) [Ratio] 15.0 % 11.6-14.6 [facility] Work Phone: MCH (RBC) [Entitic mass] 27.4 pg 27.0-32.0 [facility] Work Phone: MCHC Auto (RBC) [Mass/Vol]on 11-04-2021 MCHC (RBC) [Mass/Vol] 31.5 g/dL 32-36 [facility] Work Phone: No Panel Informationon 11-04 D-Dimer Quantitative (PE/DVT) 0.56 FEU/ug/m 0.27-0.49 [facility] Work Phone: Comment on above: D-Dimer ELEVATED (>0 .49): Additional studies and clinicalassessments are indicated to conclude diagnosis of:Deep Vein Thrombosis (DVT) or Pulmonary Embolism (PE) Estimated GFR (MDRD) Amer 155 mL/min >60 [facility] Work Phone: Comment on above: GFR Calc Estimated GFR (MDRD) Non-Af Amer 128 mL/min >60 [facility] Work Phone: Comment on above: Non- GFR Calc Troponin I High Sensitivity 11 pg/mL 3.0-78.0 [facility] Work Phone: Comment on above: Please Note: New Fadumo t Units and Gender Specific Reference Ranges. For more information see Policy Stat Procedure [place] High Sensitivity Troponin (TNIH) and attachments. Platelets bldon 11-04-2021 Platelets (Bld) [#/Vol] 364 10*3/uL 150-450 [facility] Work Phone: Serum or plasma C reactive p rotein measurement (mass/volume)on 11-04-2021 CRP [Mass/Vol] 31.90 mg/L 0.0-3.0 [facility] Work Phone: Comment on above: C-Reactive Protein ( CRP) provides useful information for thediagnosis, therapy and monitoring of inflammatory processesand associated diseases. For the evaluation of Relative Riskfor Cardiovascular Disease, a High Sensitivity CRP (HSCRP)should be ordered. Serum or plasma calcium oral urement (mass/volume)on 11-04-2021 Calcium [Mass/Vol] 9.1 mg/dL 8.5-10.1 [facility] Work Phone: Serum or plasma creatinine m easurement (mass/volume)on 11-04-2021 Creatinine [Mass/Vol] 0.66 mg/dL 0.70-1.30 [facility] Work Phone: Comment on above: The validity of the calculated GFR & GFRAA in patients over 70 years has not been determined. Clinical correlation is essential. Serum or plasma urea nitroge n measurement (mass/volume)on 11-04-2021 Urea nitrogen [Mass/Vol] 12 mg/dL 7-18 [facility] Work Phone: Thin prep Papanicolaou smear with manual screeningon 11-04-2021 Thin prep Papanicolaou smear with manual screening 8 5-15 [facility] Work Phone: Complete Urinalysison 2021 Appearance (U) Clear Normal Clear [facility] Comment on above: Result Comment: . Performed By: #### C UA2 ####[facility] [id number] [place], [place] Bacteria Moderate Abnormal Negative [facility] Comment on above: Result Comment: . Performed By: #### C UA2 ####[facility] [id number] [place], [place] Bilirubin,Urine Negative Normal Negative [facility] Comment on above: Result Comment: . Performed By: #### C UA2 ####[facility] [id number] [place], [place] Cast, Hyaline Negative Normal Negative [facility] Comment on above: Result Comment: . Performed By: #### C UA2 ####[facility] [id number] [place], [place] Color (U) Yellow Normal Lt. Yellow [facility] Comment on above: Result Comment: . Performed By: #### C UA2 ####[facility] [id number] [place], [place] Glucose Ql (U) Normal Normal Normal (<70) [facility] Comment on above: Result Comment: . Performed By: #### C UA2 ####[facility] [employer] [id number] [place], [place] Ketone,Urine Negative Normal Negative [facility] Comment on above: Result Comment: . Performed By: #### C UA2 ####[facility] [address] [place], [place] Leukocytes,Urine Negative Normal Negative [facility] Comment on above: Result Comment: . Performed By: #### C UA2 ####[facility] [employer] [id number] [place], [place] Mucous Threads Few Normal Negative [facility] Comment on above: Result Comment: . Performed By: #### C UA2 ####[facility] [address] [place], [place] Nitrites,Urine Negative Normal Negative [facility] Comment on above: Result Comment: . Performed By: #### C UA2 ####[facility] [employer] [id number] [place], [place] Occult Blood,Urine 0.1 mg/dL Abnormal Negative [facility] Comment on above: Result Comment: . Performed By: #### C UA2 ####[id number] [place], [place] pH,Urine 5.5 Normal 5.0-8.0 [facility] Comment on above: Result Comment: . Performed By: #### C UA2 ####[address] Protein (U) [Mass/Vol] 10 mg/dL Abnormal Negative [facility] Comment on above: Result Comment: . Performed By: #### C UA2 ####[address] RBC, Urine 26 - 50 Abnormal 0-2 [facility] Comment on above: Result Comment: . Performed By: #### C UA2 ####[address] Specific [place],Urine 1.023 Normal 1.005 - 1.030 [facility] Comment on above: Result Comment: . Performed By: #### C UA2 ####[address] [place], [place] Squamous Epithelial Negative Normal 3-5 [facility] Comment on above: Result Comment: . Performed By: #### C UA2 ####[address] Urobilinogen,Urine Normal Normal Normal (0-1) [facility] Comment on above: Result Comment: . Performed By: #### C UA2 ####[address] [place], [place] WBC, Urine 0 - 2 Normal 0-5 [facility] Comment on above: Result Comment: . Performed By: #### C UA2 ####[address] [place], [place] Urinalysison 11-01-2021 Appearance (U) Clear Clear NA [facility] Comment on above: . Bacteria, UA Moderate Abnormal Negative /[HPF] [facility] Comment on above: . Bilirubin Urine Negative Negative mg/dL [facility] Comment on above: . Color (U) Yellow Lt. Yellow NA [facility] Comment on above: . Glucose, Ur Normal Normal (<70) mg/dL [facility] Comment on above: . Hyaline Casts, UA Negative Negative /[LPF] [facility] Comment on above: . Interpretation and review of laboratory results Abnormal [facility] Ketones Ql (U) Negative Negative mg/dL [facility] [...] Protein (U) [Mass/Vol] 10 mg/dL Abnormal Negative [facility] Comment on above: . RBC, UA 26-50 Abnormal 0 - 2 /[HPF] [facility] Comment on above: . Specific [place], Urine 1.023 [facility] Comment on above: . Squam Epithel, UA Negative 3 - 5 /[HPF] [facility] Comment on above: . Urobilinogen, Urine Normal Normal ( 0-1) mg/dL [facility] Comment on above: . WBC, UA 0-2 0 - 5 /[HPF] [facility] Comment on above: . Test Performed by [facility], [address] [place] [address] LAB [facility] Basic Metabolic Panelon 06-2 Anion gap [Moles/Vol] 6 mmol/L Normal 3-13 [facility] Comment on above: Performed By: #### P T/AP, TROPN, BMP3, HEMDF #### [address] [address] Calcium [Mass/Vol] 9.1 mg/dL Normal 8.4-10.4 [facility] Comment on above: Performed By: #### P T/AP, TROPN, BMP3, HEMDF #### [address] [address] CO2 [Moles/Vol] 28 mmol/L Normal 22-30 [facility] Comment on above: Performed By: #### P T/AP, TROPN, BMP3, HEMDF #### [facility] [address] [place], [place] Glucose [Mass/Vol] 120 mg/dL High 70-100 [facility] Comment on above: Performed By: #### P T/AP, TROPN, BMP3, HEMDF #### [facility] [address] [place], [place] Urea nitrogen [Mass/Vol] 17 mg/dL Normal 7-17 [facility] Comment on above: Performed By: #### P T/AP, TROPN, BMP3, HEMDF #### [facility] [address] [place], [place] Creatinine [Mass/Vol] 0.65 mg/dL Normal 0.52-1.25 [facility] Comment on above: Performed By: #### P T/AP, TROPN, BMP3, HEMDF #### [facility] [address] [place], [place] eGFR OTHER > 90.0 Normal >60 [facility] Comment on above: Result Comment: KDIG [...] #### P T/AP, TROPN, BMP3, HEMDF #### [facility] [address] [place], [place] GFR/1.73 sq M.predicted among blacks MDRD (S/P/Bld) [Vol rate/Area] mL/min/{1.73_m2} Normal >60 [facility] Comment on above: Performed By: #### P T/AP, JAZMIN, BMP3, HEMDF #### [facility] [address] [place], [place] Potassium [Moles/Vol] 3.8 mmol/L Normal 3.5-5.1 [facility] Comment on above: Performed By: #### P T/AP, TROPN, BMP3, HEMDF #### [facility] [address] [place], [place] Chloride [Moles/Vol] 101 mmol/L Normal 98-107 [facility] Comment on above: Performed By: #### P T/AP, TROPN, BMP3, HEMDF #### [address] [place], [place] Sodium [Moles/Vol] 134 mmol/L Low 135-145 [facility] Comment on above: Performed By: #### P T/AP, TROPN, BMP3, HEMDF #### [address] [place], [place] Anion gap [Moles/Vol] 6 mmol/L 3 - 13 mmol/L [facility] Calcium [Mass/Vol] 9.1 mg/dL 8.4 - 10. 4 mg/dL [facility] Chloride [Moles/Vol] 101 mmol/L 98 - 10 7 mmol/L [facility] CO2 [Moles/Vol] 28 mmol/L 22 - 30 mmol/L [facility] Creatinine [Mass/Vol] 0.65 mg/dL 0.52 - 1.25 mg/dL [facility] EGFR IF NonAfrican Montenegrin >90.0 >60 mL/min [facility] Comment on above: KDIGO guidelines pro vide [...] - 17 mg/dL [facility] Test Performed by [id number] [place] [address] LAB [facility] CBC with Auto Differentialon 10-31-2021 [...] - 10.7 10*3/uL [facility] Test Performed by [facility], [address] [place] [id number] [place] [address] CR Abdomen APon 10-31-2021 CR Abdomen AP Patient Name: ANDREW SIFUENTES Diagnostic Radiology ACCESSION EXAM DATE/TIME PROCEDURE ORDERING PROVIDER [id number] 10/31/2021 20:36 EDT CR Abdomen AP [id number] -MYRON DURAN CPT code 70860 Reason For Exam (CR Abdomen AP) 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, 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 CHEST PORTABLE [...] Transcribed Date and Time: 10/31/2021 8:49 Normal [facility] CR Chest Portableon 11-01-19 CR Chest Portable Patient Name: ANDREW SIFUENTES Diagnostic Radiology ACCESSION EXAM DATE/TIME PROCEDURE ORDERING PROVIDER [id number] 10/31/2021 20:36 EDT CR Chest Portable [id number] MYRON GALINDO CPT code 18723 Reason For Exam (CR Chest Portable) AMS [...] Transcribed Date and Time: 10/31/2021 8:49 Normal [facility] CT HEAD WO CONTRASTon 2021 [id number] Computed Tomography ACCESSION EXAM DATE/TIME PROCEDURE ORDERING PROVIDER [id number] 10/31/2021 20:[address] Head or Brain w/o [id number] -DURAN, MYRON Contrast CPT code 47293 Reason For Exam (CT Head or Brain w/o Contrast) AMS, 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 shunt Comparison: 10/26/2021, MRI 10/27/2021 Findings: Serial [...] Phone: CT HEAD WO CONTRASTOrdered B y: Carla Wong on 10-31-2021 [facility] Work Phone: CT Head or Brain w/o Contras ton 10-31-2021 CT Head or Brain w/o Contrast Patient Name: ANDREW SIFUENTES Computed Tomography ACCESSION EXAM DATE/TIME PROCEDURE ORDERING PROVIDER [id number] 10/31/2021 20:[address] Head or Brain w/o [id number] -DURAN, MYRON Contrast CPT code 28083 Reason For Exam (CT Head or Brain w/o Contrast) AMS, 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 EM[facility]ENCY [facility]PT Patient: Andrew Sifuentes : [...] is cooperative and calm. According to the longterm, he has been more lethargic than normal, [...] [employer] Dante Kim MD 10/31/21 2211 Normal [facility] ED Provider Note [facility] EM[facility]PT EMERGENCY DEPARTMENT ENCOUNTER Pt Name: Andrew Sifuentes Birthdate 1950 Date of evaluation: 10/31/2021 Provider: Myron Duran MD CHIEF COMPLAINT Chief Complaint Patient presents with ? Altered Mental Status Pt presents to ED via [facility] for complaint listed. Pt is from [place] [facility]. Pt's LKW was 1000 hours today. [...] have a history of hydrocephalus with a HYDRO ELECTRIC STATION OPERATOR shunt. 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 REVIEW OF [...] (HCC) ? Kidney stone ? Neuropathy ? HYDRO ELECTRIC STATION OPERATOR (ventriculoperitoneal) shunt status SURGICAL HISTORY Past Surgical [...] of Transportati (more content not included)... 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1950 Requested By: MYRON DURAN Order Number: [id number] Reading MD: Dante Kim Measurements Intervals [place] Rate: 91 P: 41 KS: 154 QRS: 50 QRSD: 147 T: 8 QT: 385 QTc: 474 Interpretive Statements Sinus rhythm Right bundle branch block Electronically Signed On 10-31-2021 20:36:25 EDT by Dante Kim [facility] Work Phone: EKG 12 Lead - Chest PainOrde red By: Dante Kim on 10-31-2021 [facility] Work Phone: Hemogram w/ Autodiffon 10-31 Abs Baso Cnt 0.1 10*3/uL Normal 0.0-0.2 [facility] Comment on above: Performed By: #### P T/AP, TROPN, BMP3, HEMDF #### [facility] [address] [place] [address] Abs Neutrophile Cnt 6.0 10*3/uL Normal 1.8-7.0 [facility] [employer] [facility] Comment on above: Performed By: #### P T/AP, TROPN, BMP3, HEMDF #### [facility] [address] [place] [address] Basophils/100 WBC (Bld) 1.1 % Normal 0.0-2.0 [facility] Comment on above: Performed By: #### P T/AP, TROPN, BMP3, HEMDF #### [facility] [address] [place] [address] Eosinophils (Bld) [#/Vol] 0.2 10*3/uL Normal 0.0-0.5 [facility] Comment on above: Performed By: #### P T/AP, TROPN, BMP3, HEMDF #### [address] [place], [place] Eosinophils/100 WBC (Bld) 2.3 % Normal 1.0-6.0 [facility] Comment on above: Performed By: #### P T/AP, TROPN, BMP3, HEMDF #### [address] [place], [place] Erythrocyte distribution width (RBC) [Ratio] 17.2 % High 11.5-14.5 [facility] Comment on above: Performed By: #### P T/AP, TROPN, BMP3, HEMDF #### [address] [place], [place] Granulocytes/100 WBC (Bld) 61.8 % Normal 40.0-80.0 [facility] Comment on above: Performed By: #### P T/AP, TROPN, BMP3, HEMDF #### [address] [place], [place] Hematocrit (Bld) [Volume fraction] 35.0 % Low 40.0-52.0 [facility] Comment on above: Performed By: #### P T/AP, TROPN, BMP3, HEMDF #### [address] [place], [place] Hemoglobin (Bld) [Mass/Vol] 11.3 g/dL Low 13.0-18.0 [facility] Comment on above: Performed By: #### P T/AP, TROPN, BMP3, HEMDF #### [address] [place], [place] Lymphocytes (Bld) [#/Vol] 2.8 10*3/uL Normal 1.0-4.3 [facility] Comment on above: Performed By: #### P T/AP, TROPN, BMP3, HEMDF #### [address] [place], [place] Lymphocytes/100 WBC (Bld) 29.2 % Normal 20.0-40.0 [facility] Comment on above: Performed By: #### P T/AP, TROPN, BMP3, HEMDF #### [address] [place], [place] MCH (RBC) [Entitic mass] 27.5 pg Normal 26.0-34.0 [facility] Comment on above: Performed By: #### P T/AP, TROPN, BMP3, HEMDF #### [address] [place] MCHC 32.3 % Normal 32.0-36.0 [facility] Comment on above: Performed By: #### P T/AP, TROPN, BMP3, HEMDF #### [address] [address] [place], [place] MCV (RBC) [Entitic vol] 85.0 fL Normal 80.0-98.0 [facility] Comment on above: Performed By: #### P T/AP, TROPN, BMP3, HEMDF #### [address] [place], [place] Monocytes (Bld) [#/Vol] 0.5 10*3/uL Normal 0.0-0.8 [facility] Comment on above: Performed By: #### P T/AP, TROPN, BMP3, HEMDF #### [address] [address] [place], [place] Monocytes/100 WBC (Bld) 5.6 % Normal 2.0-10.0 [facility] Comment on above: Performed By: #### P T/AP, TROPN, BMP3, HEMDF #### [address] [place], [place] Platelet mean volume (Bld) [Entitic vol] 8.6 fL Normal 7.4-12.4 [facility] Comment on above: Result Comment: MPV is a calculated measurement using platelet volume ratio. Performed By: #### P T/AP, TROPN, BMP3, HEMDF #### [address] [address] [place], [place] Platelets (Bld) [#/Vol] 348 10*3/uL Normal 140-440 [facility] Comment on above: Performed By: #### P T/AP, TROPN, BMP3, HEMDF #### [facility] [address] [place], [place] RBC (Bld) [#/Vol] 4.12 10*6/uL Low 4.40-5.90 [facility] Comment on above: Performed By: #### P T/AP, TROPN, BMP3, HEMDF #### [facility] [address] [place], [place] WBC (Bld) [#/Vol] 9.7 10*3/uL Normal 3.6-10.7 [facility] Comment on above: Performed By: #### P T/AP, TROPN, BMP3, HEMDF #### [facility] [address] [place], [place] Laboratory - Coagulationon 0 10-31-2021 INR Coag (Bld) [Relative time] 2.0 {INR} [facility] Work Phone: Comment on above: Critical Value > 4.0 No Panel Informationon 10-31 Radiology Study observation (narrative) [facility] Work Phone: PROTIME/INR & PTTon 11-01-19 aPTT Coag (Bld) [Time] 39.2 s High 20.0 - 30.5 s [facility] Comment on above: NOTE: The therapeuti c time for Heparin anticoagulation, based on Xa activity inhibition, is an APTT of 46-80 seconds. INR Coag (Bld) [Relative time] 1.9 {INR} High [facility] Comment on above: Recommended Anticoag ulant Therapy: [...] Interpretation and review of laboratory results Abnormal [facility] PT Coag (PPP) [Time] 19.8 s High 9.0 - 12.0 s [facility] Comment on above: . Test Performed by [facility], [address] [place] [id number] [place] [address] - [facility] Protime AND APTTon aPTT Coag (Bld) [Time] 39.2 s High 20.0-30.5 [facility] Comment on above: Result Comment: NOTE : The therapeutic time for Heparin anticoagulation, based on Xa activity inhibition, is an APTT of 46-80 seconds. Performed By: #### P T/AP, TROPN, BMP3, HEMDF #### [address] INR 1.9 High 0.9-1.1 [facility] Comment on above: Result Comment: Harry [...] #### P T/AP, TROPN, BMP3, HEMDF #### [address] [address] [place] [address] PT Coag (PPP) [Time] 19.8 s High 9.0-12.0 [facility] Comment on above: Result Comment: . Performed By: #### P T/AP, TROPN, BMP3, HEMDF #### [address] [address] Troponin Ion 10-31-2021 Troponin I.cardiac [Mass/Vol] ng/mL Normal 0.000-0.034 [facility] Comment on above: Result Comment: . Performed By: #### P T/AP, TROPN, BMP3, HEMDF #### [address] [address] Troponin x1on 10-31-2021 Troponin I.cardiac [Mass/Vol] ng/mL 0.000 - 0.034 ng/mL [facility] Comment on above: . Test Performed by [facility], [address] [place] [address] [facility] Whole blood prothrombin time on 10-31-2021 PT Coag (Bld) [Time] 23.7 s 11.7-14.9 [facility] Work Phone: XR ABDOMEN (KUB) (SINGLE AP VIEW)on 10-31-2021 Patient Name: ANDREW SIFUENTES Diagnostic Radiology ACCESSION EXAM DATE/TIME PROCEDURE ORDERING PROVIDER [id number] 10/31/2021 20:36 EDT CR Abdomen AP [id number] -MYRON DURAN CPT code 47676 Reason For Exam (CR Abdomen AP) 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, 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 CHEST PORTABLE [...] WENDELL Transcribed Date and Time: 10/31/2021 8:49 [facility] RAD Huang Reynoso MD - 10/31/2021 Patient Name: ANDREW SIFUENTES Diagnostic Radiology ACCESSION EXAM DATE/TIME PROCEDURE ORDERING PROVIDER [id number] 10/31/2021 20:36 EDT CR Abdomen AP MYRON CEBALLOS CPT code 25248 Reason For Exam (CR Abdomen AP) 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, 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 CHEST PORTABLE [...] Radiology ACCESSION EXAM DATE/TIME PROCEDURE ORDERING PROVIDER [id number] 10/31/2021 20:36 EDT CR Chest Portable [id number] MYRON GALINDO CPT code 82947 Reason For Exam (CR Chest Portable) AMS [...] Transcribed Date and Time: 10/31/2021 8:49 [facility] Huang Reynoso MD - 10/31/2021 Patient Name: ANDREW SIFUENTES Diagnostic Radiology ACCESSION EXAM DATE/TIME PROCEDURE ORDERING PROVIDER [id number] 10/31/2021 20:36 EDT CR Chest Portable [id number] ISAACDURANMYRON CPT code 47615 Reason For Exam (CR Chest Portable) AMS [...] and Time: 10/31/2021 8:49 [facility] Work Phone: XR CHEST PORTABLEOrdered By: Huang Reynoso on 10-31-2021 [facility] Work Phone: Lupus Anticoagulanton 2021 DRVVT Confirmation Test Not Applicable Negative ratio [facility] Work Phone: dRVVT Screen 38 [facility] Work Phone: Hex Phosph Neut Test Not Applicable Negative NA [facility] Work Phone: Interpretation and review of laboratory results Abnormal [facility] Work Phone: LUPUS INTERPRETATION See Note [facility] Work Phone: Comment on above: Lupus anticoagulant not detected. [...] has not already been performed. Performed by [facility], [address] [place] [id number] [employer], Quiana Castro MD - Lab. Director Platelet Neutralization Not Applicable Negative NA [facility] Work Phone: [phone] PTT-D Heparin Neutralized 48 [facility] Work Phone: PTT-LA 55 High [facility] Work Phone: Reptilase Tm 17.6 <=21.9 sec [facility] Work Phone: Thrombin Time 25.3 High [facility] Work Phone: [facility] Work Phone: Lupus Anticoagulant Reflexiv e Panelon 10-29-2021 aPTT Coag (Bld) [Time] 55 s High 32-48 [facility] Comment on above: Performed By: #### C OVAG #### [facility] [address] [place] [address] aPTT Coag (Bld) [Time] 48 s Normal 32-48 [facility] Comment on above: Performed By: #### C OVAG #### [facility] [address] [place] [address] DRVVT 1:1 Mix Not Applicable Normal 33-44 [facility] Work Phone: Comment on above: Performed By: #### C OVAG #### [facility] [address] [place] [address] dRVVT Confirmation Not Applicable Normal Negative [facility] Comment on above: Performed By: #### C OVAG #### [facility] [address] [place] [address] dRVVT Screen 38 sec Normal 33-44 [facility] Comment on above: Performed By: #### C OVAG #### [facility] [address] [place] [address] Hexagonal Phospholipid Neutral Reflex Not Applicable Normal Negative [facility] Comment on above: Performed By: #### C OVAG #### [facility] [address] [place] [address] Lupus Anticoagulant Interpretation See Note Normal [facility] Comment on above: Result Comment: Lupu [...] has not already been performed. Performed by [facility], [address] [facility] [place] [address] www.[employer], Quiana Castro MD - Lab. Director Performed By: #### C OVAG #### [facility] [address] [place] [address] Platelet Neutralization (PTT-D, Confirm) Not Applicable Normal Negative [facility] Comment on above: Performed By: #### C OVAG #### [facility] [address] [place] [address] PT Coag (PPP) [Time] 14.7 s Normal 12.0-15.5 [facility] Work Phone: Comment on above: Performed By: #### C OVAG #### [address] [place] [address] PTT-D 1:1 Mix Not Applicable Normal 32-48 [facility] Work Phone: Comment on above: Performed By: #### C OVAG #### [address] [place] [address] Reptilase Time 17.6 sec Normal <=21.9 [facility] Comment on above: Performed By: #### C OVAG #### [address] [facility] [place] [address] Thrombin Time 25.3 sec High 14.7-19.5 [facility] Comment on above: Performed By: #### C OVAG #### [address] [facility] [place] [address] POCT COVID-19, Antigenon SARS-CoV-2 Nucleocapsid Antigen Negative Negative [facility] Comment on above: A negative result does not rule out the possibility of SARS-CoV-2 infection. NAAT-based methods should be considered for symptomatic patients presenting greater than seven days after onset of symptoms. Method: Lateral flow immunoassay. Fact sheets for healthcare providers and patients can be found at the following sites: https://www.fda.gov/media/673636/download https://www.fda.gov/media/146194/download Test Performed by [facility], [address], [place], [place] [id number] [place] [address] LAB [facility] Prothrombin Timeon INR 2.7 High 0.9-1.1 [facility] Comment on above: Result Comment: Harry [...] Infarction Performed By: #### P T #### [facility] [address] [place] [address] PT Coag (PPP) [Time] 27.4 s High 9.0-12.0 [facility] Comment on above: Result Comment: . Performed By: #### P T #### [facility] [address] [place] [address] Protime-INRon 10-29-2021 INR Coag (Bld) [Relative time] 2.7 {INR} High [facility] Work Phone: Comment on above: Recommended Anticoag [...] Interpretation and review of laboratory results Abnormal [facility] Work Phone: PT Coag (PPP) [Time] 27.4 s High 9.0 - 12.0 s [facility] Work Phone: Comment on above: . Test Performed by [facility], [address] [place] [address] [facility] Work Phone: SARS-CoV-2 Antigenon 06-25-2 022 SARS-CoV-2 Antigen Negative Normal Negative [facility] [employer] [facility] Comment on above: Result Comment: A negative result does not rule out the possibility of SARS-CoV-2 infection. NAAT-based methods should be considered for symptomatic patients presenting greater than seven days after onset of symptoms. Method: Lateral flow immunoassay. Fact sheets for healthcare providers and patients can be found at the following sites: https://www.[employer].gov/media/094381/download https://www.[employer].gov/media/500531/download Performed By: #### C OVAG #### [facility]28m[facility] [address] [place] [address] CBCon 10-28-2021 Hematocrit (Bld) [Volume fraction] 33.4 % Low 40.0 - 52.0 % [employer] Phone: Hemoglobin (Bld) [Mass/Vol] 11.0 g/dL Low 13.0 - 18.0 g/dL [employer] Phone: Interpretation and review of laboratory results Abnormal [employer] Phone: MCH (RBC) [Entitic mass] 27.8 pg 26.0 - 34.0 pg [employer] Phone: MCHC (RBC) [Mass/Vol] 32.8 % 32.0 - 36.0 % [employer] Phone: MCV (RBC) [Entitic vol] 84.8 fL 80.0 - 98.0 fL [employer] Phone: Platelet distribution width (Bld) [Ratio] 17.1 % High 11.5 - 14.5 % [employer] Phone: Platelet mean volume (Bld) [Entitic vol] 8.3 fL 7.4 - 12.4 fL [employer] [employer] Phone: Comment on above: MPV is a calculated measurement using platelet volume ratio. Platelets (Bld) [#/Vol] 344 10*3/uL 140 - 440 10*3/uL [employer] Work Phone: RBC (Bld) [#/Vol] 3.94 10*6/uL Low 4.40 - 5.9 0 10*6/uL [facility] Work Phone: WBC (Bld) [#/Vol] 10.0 10*3/uL 3.6 - 10.7 10*3/uL [facility] Work Phone: Test Performed by [facility], [address] [place], [place] [address] [facility] Work Phone: Comp Metabolic Panelon 10-28 ALP [Catalytic activity/Vol] 103 U/L Normal 38-126 [facility] Comment on above: Performed By: #### C A19O, LUPUS #### The performing lab is in the report. #### NSEO #### [facility] #### HEMDF, LDH3, BMP3, MG3, PT, CEA2 #### [facility] [address] [place] [address] #### B2GPM, B2GPA, B2GPG #### [address] [phone] ALT [Catalytic activity/Vol] 26 U/L Normal 0-49 [facility] Comment on above: Result Comment: The ALT test is performed by an updated assay method. Please note that the reference intervals have been changed and are now sex specific. Performed By: #### C A19O, LUPUS #### The performing lab is in the report. #### NSEO #### [facility] #### HEMDF, LDH3, BMP3, MG3, PT, CEA2 #### [facility] [address] [place] [address] #### B2GPM, B2GPA, B2GPG #### [address] [phone] AST [Catalytic activity/Vol] 24 U/L Normal 15-46 [facility] Comment on above: Performed By: #### C A19O, LUPUS #### The performing lab is in the report. #### NSEO #### [facility] #### HEMDF, LDH3, BMP3, MG3, PT, CEA2 #### [place] [address] [place] [address] #### B2GPM, B2GPA, B2GPG #### [address] Calcium [Mass/Vol] 9.1 mg/dL Normal 8.4-10.4 [facility] Comment on above: Performed By: #### C A19O, LUPUS #### The performing lab is in the report. #### NSEO #### [facility] #### HEMDF, LDH3, BMP3, MG3, PT, CEA2 #### [address] [place] [address] #### B2GPM, B2GPA, B2GPG #### [address] Glucose [Mass/Vol] 117 mg/dL High 70-100 [facility] Comment on above: Performed By: #### C A19O, LUPUS #### The performing lab is in the report. #### NSEO #### [facility] #### HEMDF, LDH3, BMP3, MG3, PT, CEA2 #### [address] [place] [address] #### B2GPM, B2GPA, B2GPG #### [address] Urea nitrogen [Mass/Vol] 16 mg/dL Normal 7-17 [facility] Comment on above: Performed By: #### C A19O, LUPUS #### The performing lab is in the report. #### NSEO #### [facility] #### HEMDF, LDH3, BMP3, MG3, PT, CEA2 #### [address] [place] [address] #### B2GPM, B2GPA, B2GPG #### [address] Anion gap [Moles/Vol] 5 mmol/L Normal 3-13 [facility] Comment on above: Performed By: #### C A19O, LUPUS #### The performing lab is in the report. #### NSEO #### [facility] #### HEMDF, LDH3, BMP3, MG3, PT, CEA2 #### [place] [address] [place] [address] #### B2GPM, B2GPA, B2GPG #### [address] [address] Bilirubin [Mass/Vol] 0.4 mg/dL Normal 0.2-1.3 [facility] Comment on above: Performed By: #### C A19O, LUPUS #### The performing lab is in the report. #### NSEO #### [facility] #### HEMDF, LDH3, BMP3, MG3, PT, CEA2 #### [place] [address] [place] [address] #### B2GPM, B2GPA, B2GPG #### [address] [address] CO2 [Moles/Vol] 29 mmol/L Normal 22-30 [facility] Comment on above: Performed By: #### C A19O, LUPUS #### The performing lab is in the report. #### NSEO #### [facility] #### HEMDF, LDH3, BMP3, MG3, PT, CEA2 #### [address] [place] [address] #### B2GPM, B2GPA, B2GPG #### [address] [address] Creatinine [Mass/Vol] 0.71 mg/dL Normal 0.52-1.25 [facility] Comment on above: Performed By: #### C A19O, LUPUS #### The performing lab is in the report. #### NSEO #### [facility] #### HEMDF, LDH3, BMP3, MG3, PT, CEA2 #### [place] [address] [place] [address] #### B2GPM, B2GPA, B2GPG #### [address] [phone] eGFR OTHER > 90.0 Normal >60 [facility] Comment on above: Result Comment: KDIG [...] HEMDF, LDH3, BMP3, MG3, PT, CEA2 #### [facility] [employer] [facility] [address] [place] [address] #### B2GPM, B2GPA, B2GPG #### [address] [address] GFR/1.73 sq M.predicted among blacks MDRD (S/P/Bld) [Vol rate/Area] mL/min/{1.73_m2} Normal >60 [facility] Comment on above: Performed By: #### C A19O, LUPUS #### The performing lab is in the report. #### NSEO #### [facility] #### HEMDF, LDH3, BMP3, MG3, PT, CEA2 #### [facility] [address] [place] #### B2GPM, B2GPA, B2GPG #### [address] Protein [Mass/Vol] 7.1 g/dL Normal 6.3-8.2 [facility] Comment on above: Performed By: #### C A19O, LUPUS #### The performing lab is in the report. #### NSEO #### [facility] #### HEMDF, LDH3, BMP3, MG3, PT, CEA2 #### [place] [address] [place] [address] #### B2GPM, B2GPA, B2GPG #### [address] Potassium [Moles/Vol] 3.5 mmol/L Normal 3.5-5.1 [facility] Comment on above: Performed By: #### C A19O, LUPUS #### The performing lab is in the report. #### NSEO #### [facility] #### HEMDF, LDH3, BMP3, MG3, PT, CEA2 #### [place] [address] [place], [place] #### B2GPM, B2GPA, B2GPG #### [address] Sodium [Moles/Vol] 138 mmol/L Normal 135-145 [facility] Comment on above: Performed By: #### C A19O, LUPUS #### The performing lab is in the report. #### NSEO #### [facility] #### HEMDF, LDH3, BMP3, MG3, PT, CEA2 #### [address] [place] [address] #### B2GPM, B2GPA, B2GPG #### [address] Albumin [Mass/Vol] 3.7 g/dL Normal 3.5-5.0 [facility] Comment on above: Performed By: #### C A19O, LUPUS #### The performing lab is in the report. #### NSEO #### [facility] #### HEMDF, LDH3, BMP3, MG3, PT, CEA2 #### [facility] [address] [place] [address] #### B2GPM, B2GPA, B2GPG #### [facility] [address] [place] [address] Chloride [Moles/Vol] 104 mmol/L Normal 98-107 [facility] Comment on above: Performed By: #### C A19O, LUPUS #### The performing lab is in the report. #### NSEO #### [facility] #### HEMDF, LDH3, BMP3, MG3, PT, CEA2 #### [facility] [address] [place] [address] #### B2GPM, B2GPA, B2GPG #### [address] [address] Comprehensive Metabolic Pane kiel 10-28-2021 Albumin [Mass/Vol] 3.7 g/dL 3.5 - 5.0 g/dL [facility] Work Phone: [phone] ALP (Bld) [Catalytic activity/Vol] 103 U/L 38 - 126 U/L [facility] Work Phone: [phone] ALT [Catalytic activity/Vol] 26 U/L 0 - 49 U/L [facility] Work Phone: [phone] Comment on above: The ALT test is perf ormed by an updated assay method. Please note that the reference intervals have been changed and are now sex specific. Anion gap [Moles/Vol] 5 mmol/L 3 - 13 mmol/L [facility] Work Phone: [phone] AST [Catalytic activity/Vol] 24 U/L 15 - 46 U/L [facility] Work Phone: [phone] Bilirubin [Mass/Vol] 0.4 mg/dL 0.2 - 1 .3 mg/dL [facility] Work Phone: Calcium [Mass/Vol] 9.1 mg/dL 8.4 - 10. 4 mg/dL [facility] Work Phone: [phone] Chloride [Moles/Vol] 104 mmol/L 98 - 10 7 mmol/L [facility] Work Phone: [phone] CO2 [Moles/Vol] 29 mmol/L 22 - 30 mmol/L [facility] Work Phone: 222 Creatinine [Mass/Vol] 0.71 mg/dL 0.52 - 1.25 mg/dL [facility] Work Phone: [phone] EGFR IF NonAfrican Montenegrin >90.0 >60 mL/min [facility] Work Phone: [phone] Comment on above: KDIGO guidelines pro [...] fraction] 7.1 g/dL 6.3 - 8.2 g/dL [facility] Work Phone: [phone] GFR/1.73 sq M.predicted among blacks MDRD (S/P/Bld) [Vol rate/Area] mL/min/{1.73_m2} >60 mL/min [facility] Work Phone: [phone] Glucose [Mass/Vol] 117 mg/dL High 70 - 100 mg/dL [facility] Work Phone: [phone] Interpretation and review of laboratory results Abnormal [facility] Work Phone: [phone] Potassium [Moles/Vol] 3.5 mmol/L 3.5 - 5.1 mmol/L [facility] Work Phone: [phone] Sodium [Moles/Vol] 138 mmol/L 135 - 145 mmol/L [facility] Work Phone: [phone] Urea nitrogen (BldV) [Mass/Vol] 16 mg/dL 7 - 17 mg/dL [facility] Work Phone: Test Performed by [facility], [address] [place], [place] [address] [facility] Work Phone: Hemogramon 10-28-2021 Erythrocyte distribution width (RBC) [Ratio] 17.1 % High 11.5-14.5 [facility] Comment on above: Performed By: #### C A19O, LUPUS #### The performing lab is in the report. #### NSEO #### [facility] #### HEMDF, LDH3, BMP3, MG3, PT, CEA2 #### [place] [address] [place] [address] #### B2GPM, B2GPA, B2GPG #### [address] Hematocrit (Bld) [Volume fraction] 33.4 % Low 40.0-52.0 [facility] Comment on above: Performed By: #### C A19O, LUPUS #### The performing lab is in the report. #### NSEO #### [facility] #### HEMDF, LDH3, BMP3, MG3, PT, CEA2 #### [address] [place] [address] #### B2GPM, B2GPA, B2GPG #### [address] Hemoglobin (Bld) [Mass/Vol] 11.0 g/dL Low 13.0-18.0 [facility] Comment on above: Performed By: #### C A19O, LUPUS #### The performing lab is in the report. #### NSEO #### [facility] #### HEMDF, LDH3, BMP3, MG3, PT, CEA2 #### [place] [address] [place] [address] #### B2GPM, B2GPA, B2GPG #### [address] MCH (RBC) [Entitic mass] 27.8 pg Normal 26.0-34.0 [facility] Comment on above: Performed By: #### C A19O, LUPUS #### The performing lab is in the report. #### NSEO #### [facility] #### HEMDF, LDH3, BMP3, MG3, PT, CEA2 #### [facility] [address] [place] [address] #### B2GPM, B2GPA, B2GPG #### [address] MCHC 32.8 % Normal 32.0-36.0 [facility] Comment on above: Performed By: #### C A19O, LUPUS #### The performing lab is in the report. #### NSEO #### [facility] #### HEMDF, LDH3, BMP3, MG3, PT, CEA2 #### [facility] [address] [place], [place] #### B2GPM, B2GPA, B2GPG #### [address] MCV (RBC) [Entitic vol] 84.8 fL Normal 80.0-98.0 [facility] Comment on above: Performed By: #### C Sena9O, LUPUS #### The performing lab is in the report. #### NSEO #### [facility] #### HEMDF, LDH3, BMP3, MG3, PT, CEA2 #### [facility] [address] [place], [place] #### B2GPM, B2GPA, B2GPG #### [address] Platelet mean volume (Bld) [Entitic vol] 8.3 fL Normal 7.4-12.4 [facility] Comment on above: Result Comment: MPV is a calculated measurement using platelet volume ratio. Performed By: #### C A19O, LUPUS #### The performing lab is in the report. #### NSEO #### [facility] #### HEMDF, LDH3, BMP3, MG3, PT, CEA2 #### [facility] [address] [place] [address] #### B2GPM, B2GPA, B2GPG #### [address] Platelets (Bld) [#/Vol] 344 10*3/uL Normal 140-440 [facility] Comment on above: Performed By: #### C A19O, LUPUS #### The performing lab is in the report. #### NSEO #### [facility] #### HEMDF, LDH3, BMP3, MG3, PT, CEA2 #### [address] [place] #### B2GPM, B2GPA, B2GPG #### [address] RBC (Bld) [#/Vol] 3.94 10*6/uL Low 4.40-5.90 [facility] Comment on above: Performed By: #### C A19O, LUPUS #### The performing lab is in the report. #### NSEO #### [facility] #### HEMDF, LDH3, BMP3, MG3, PT, CEA2 #### [address] [place] #### B2GPM, B2GPA, B2GPG #### [address] WBC (Bld) [#/Vol] 10.0 10*3/uL Normal 3.6-10.7 [facility] Comment on above: Performed By: #### C A19O, LUPUS #### The performing lab is in the report. #### NSEO #### [facility] #### HEMDF, LDH3, BMP3, MG3, PT, CEA2 #### [facility] [address] [place] [address] #### B2GPM, B2GPA, B2GPG #### [facility] [address] [place] [address] Neuron Specific Enolaseon Neuron Specific Enolase 20.8 Normal [facility] Comment on above: Result Comment: Neur on Specific Enolase, Serum 20.8 ng/mL H (Ref Interval: <=12.7) NSE and Hgb are elevated in the specimen. The elevated NSE may be a result of hemolysis as NSE is expressed in red blood cells. Interpret results with caution. INTERPRETIVE INFORMATION: Neuron Specific Enolase in Serum This assay is performed using the [employer] NSE Kryptor Immunoassay. Results obtained with different assay methods or kits cannot be used interchangeably. Results cannot be interpreted as absolute evidence of the presence or absence of malignant disease. This test was developed and its performance characteristics determined by [employer]. It has not been cleared or approved by the [place] Food and Drug Administration. This test was performed in a CLIA certified laboratory and is intended for clinical purposes. Performed By: #### C OVAG #### [facility] [address] [place] [address] Neuron specific enolase (NSE )on 10-28-2021 Neuron Specific Enolase 20.8 [facility] Work Phone: Comment on above: Neuron Specific Enol ase, Serum 20.8 ng/mL H (Ref Interval: <=12.7) NSE and Hgb are elevated in the specimen. The elevated NSE may be a result of hemolysis as NSE is expressed in red blood cells. Interpret results with caution. INTERPRETIVE INFORMATION: Neuron Specific Enolase in Serum This assay is performed using the [employer] NSE Kryptor Immunoassay. Results obtained with different assay methods or kits cannot be used interchangeably. Results cannot be interpreted as absolute evidence of the presence or absence of malignant disease. This test was developed and its performance characteristics determined by [employer]. It has not been cleared or approved by the [place] Food and Drug Administration. This test was performed in a CLIA certified laboratory and is intended for clinical purposes. 1 [facility] Work Phone: Prothrombin Timeon 2 INR 3.1 High 0.9-1.1 [facility] Comment on above: Result Comment: Harry [...] HEMDF, LDH3, BMP3, MG3, PT, CEA2 #### [facility] [address] [place] [address] #### B2GPM, B2GPA, B2GPG #### [address] [phone] PT Coag (PPP) [Time] 30.8 s High 9.0-12.0 [facility] Comment on above: Result Comment: . Performed By: #### C A19O, LUPUS #### The performing lab is in the report. #### NSEO #### [facility] #### HEMDF, LDH3, BMP3, MG3, PT, CEA2 #### [address] [place] [address] #### B2GPM, B2GPA, B2GPG #### [address] [phone] Protime-INRon 10-28-2021 INR Coag (Bld) [Relative time] 3.1 {INR} High [facility] Work Phone: Comment on above: Recommended Anticoag [...] Interpretation and review of laboratory results Abnormal [facility] Work Phone: PT Coag (PPP) [Time] 30.8 s High 9.0 - 12.0 s [facility] Work Phone: Comment on above: . Test Performed by [facility], [address] [place], [place], [place] [address] [facility] Work Phone: MRI BRAIN WO CONTRASTon 10-06 Patient Name: ANDREW SIFUENTES Magnetic Resonance Imaging ACCESSION EXAM DATE/TIME PROCEDURE ORDERING PROVIDER [id number] 10/27/2021 13:14 EDT MRI Brain w/o Contrast UNASSIGNED, UNASSIGNED CPT code 71247 Reason For Exam (MRI Brain w/o Contrast) stroke Patient has HYDRO ELECTRIC STATION OPERATOR shunt in place, please follow Radiology protocol [...] OSAMA Transcribed Date and Time: 10/27/2021 2:39 [facility] Venus Loyd MD - 10/27/2021 Patient Name: ANDREW SIFUENTES Magnetic Resonance Imaging ACCESSION EXAM DATE/TIME PROCEDURE ORDERING PROVIDER [id number] 10/27/2021 13:14 EDT MRI Brain w/o Contrast UNASSIGNED, UNASSIGNED CPT code 79213 Reason For Exam (MRI Brain w/o Contrast) stroke Patient has HYDRO ELECTRIC STATION OPERATOR shunt in place, please follow Radiology protocol [...] Imaging ACCESSION EXAM DATE/TIME PROCEDURE ORDERING PROVIDER [id number] 10/27/2021 13:14 EDT MRI Brain w/o Contrast UNASSIGNED, UNASSIGNED CPT code 15109 Reason For Exam (MRI Brain w/o Contrast) stroke Patient has HYDRO ELECTRIC STATION OPERATOR shunt in place, please follow Radiology protocol [...] Transcribed Date and Time: 10/27/2021 2:39 Normal [facility] Prothrombin Timeon INR 2.1 High 0.9-1.1 [facility] Comment on above: Result Comment: Harry [...] Infarction Performed By: #### P T #### [facility] [address] [place] [address] PT Coag (PPP) [Time] 21.9 s High 9.0-12.0 [facility] Work Phone: Comment on above: . Result Comment: . Performed By: #### P T #### [facility] [address] [place] [address] Protime-INRon 10-27-2021 INR Coag (Bld) [Relative time] 2.1 {INR} High [facility] Work Phone: Comment on above: Recommended Anticoag [...] Interpretation and review of laboratory results Abnormal [facility] Work Phone: Test Performed by [facility], [address] [place], [place], [place] [address] [place] [address] LAB [facility] Work Phone: CT HEAD WO CONTRASTon 2021 Patient Name: ANDREW SIFUENTES Computed Tomography ACCESSION EXAM DATE/TIME PROCEDURE ORDERING PROVIDER [id number] 10/26/2021 11:[address] Head or Brain w/o JUNIE PINEDA, SARINA Contrast CPT code 33908 Reason For Exam (CT Head or Brain w/o Contrast) hydrocephalus. thank you Report CLINICAL INFORMATION: Hydrocephalus. Shunt. 3 mm axial cuts through the head are obtained without IV contrast. The examination is compared to a previous study dated 06/29/2014. FINDINGS: Old HYDRO ELECTRIC STATION OPERATOR shunt tubing is noted bilaterally. The new [...] are clear. IMPRESSION: 1. Old and new HYDRO ELECTRIC STATION OPERATOR shunt tubing. 2. No hydrocephalus. 3. Atrophy and evidence of small-vessel ischemic disease. 4. No CT evidence of an acute intracranial process. Report Dictated on --- Final --- Dictating Physician: MD SOLANO JEFFREY Signed Date and Time: 10/26/2021 11:42 am Signed by: MD SOLANO JEFFREY Transcribed Date and Time: 10/26/2021 11:43 Albert Castillo MD - 10/26/2021 Patient Name: ANDREW SIFUENTES Computed Tomography ACCESSION EXAM DATE/TIME PROCEDURE ORDERING PROVIDER [id number] 10/26/2021 11:[address] Head or Brain w/o EDWIN, BLANKING MACHINE OPERATOR, SARINA Contrast CPT code 84172 Reason For Exam (CT Head or Brain w/o Contrast) hydrocephalus. thank you Report CLINICAL INFORMATION: Hydrocephalus. Shunt. 3 mm axial cuts through the head are obtained without IV contrast. The examination is compared to a previous study dated 06/29/2014. FINDINGS: Old HYDRO ELECTRIC STATION OPERATOR shunt tubing is noted bilaterally. The new [...] are clear. IMPRESSION: 1. Old and new HYDRO ELECTRIC STATION OPERATOR shunt tubing. 2. No hydrocephalus. 3. Atrophy and evidence of small-vessel ischemic disease. 4. No CT evidence of an acute intracranial process. Report Dictated on --- Final --- Dictating Physician: MD SOLANO JEFFREY Signed Date and Time: 10/26/2021 11:42 am Signed by: MD SOLANO JEFFREY Transcribed Date and Time: 10/26/2021 11:43 [facility] Work Phone: CT HEAD WO CONTRASTOrdered B y: Albert Solano on 10-26-2021 [facility] Work Phone: CT Head or Brain w/o Contras ton 10-26-2021 CT Head or Brain w/o Contrast Patient [facility]: [id number] Comput[facility] Tomography ACCESSION EXAM DATE/TIME PROCEDURE ORDERING PROVIDER [id number] 10/26/2021 11:[address] Head or Brain w/o EDWIN, BLANKING MACHINE OPERATOR, SARINA Contrast CPT code 58343 Reason For Exam (CT Head or Brain w/o Contrast) hydrocephalus. thank you Report CLINICAL INFORMATION: Hydrocephalus. Shunt. 3 mm axial cuts through the head are obtained without IV contrast. The examination is compared to a previous study dated 06/29/2014. FINDINGS: Old HYDRO ELECTRIC STATION OPERATOR shunt tubing is noted bilaterally. The new [...] are clear. IMPRESSION: 1. Old and new HYDRO ELECTRIC STATION OPERATOR shunt tubing. 2. No hydrocephalus. 3. Atrophy and evidence of small-vessel ischemic disease. 4. No CT evidence of an acute intracranial process. Report Dictated on Final Dictating Physician: MD SOLANO JEFFREY Signed Date and Time: 10/26/2021 11:42 am Signed by: MD SOLANO JEFFREY Transcribed Date and Time: 10/26/2021 11:43 Normal [facility] EEG awake and asleepon 10-26 Bony Tompkins MD 10/26/2021 4:06 PM [facility] [address] [place] [id number] ROUTINE EEG REPORT Patient Name: Andrew Sifuentse : 1950 Date of Study: 10/26/2021 Duration Recorded: 23 minutes EEG#: [id number] PROFESSOR OF LITERACY: CASTRO PROVIDER REQUESTING STUDY: Dr. Barreto REASON FOR EXAM: seizures HISTORY: Andrew Sifuentes is a 71 y.o. 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 At present patient is awake, follows commands, was able to tell his name, and that he was in hospital but not oriented to time. Per documentation patient had NCSE in May 2021, was on Vimpat, but it was discontinued as there was no evidence of recurrent seizures in July 2021 by Neurology at [facility], per daughter patient was on Dilantin for 31 yrs. Per daughter patient had seizures in the past and also felt he had staring episodes this morning. Per daughter patient has been essentially bed bound in [place] since May 2021 but prior to that [...] study with video was carried out at [facility] Scalp electrodes were positioned in person by an supervisor microbiology technologists, following patient education, according to the 10-20 International system of electrode placement and maintained for integrity and quality of the recording. EEG data with video was recorded continuously and digitally stored. The supervisor microbiology technologists reviewed all automated detections and manual events [...] No normal vari (more content not included)... [employer] Work Phone: [employer] Work Phone: No Panel Informationon 10-26 Radiology Study observation (narrative) [employer] Work Phone: Prothrombin Timeon 2 INR 1.9 High 0.9-1.1 [facility] Comment on above: Result Comment: Harry mmended [...] Infarction Performed By: #### C OVAG #### [facility] [address] [place] [address] PT Coag (PPP) [Time] 19.7 s High 9.0-12.0 [facility] Comment on above: Result Comment: . Performed By: #### C OVAG #### [facility] [employer] [facility] [address] [place] [address] Protime-INRon 10-26-2021 INR Coag (Bld) [Relative time] 1.9 {INR} High [facility] Work Phone: Comment on above: Recommended Anticoag [...] Interpretation and review of laboratory results Abnormal [facility] Work Phone: PT Coag (PPP) [Time] 19.7 s High 9.0 - 12.0 s [facility] Work Phone: Comment on above: . Test Performed by [facility], [address], [place], [place] [address] [facility] Work Phone: [place] 19-9on 10-25-2021 CA 19-9 17 U/mL Normal <=35 [facility] Work Phone: Comment on above: INTERPRETIVE INFORMA [...] or absence of malignant disease. Performed By: [employer] [address] [place] [address] Monument Letterer: Quiana Castro MD Result Comment: INTE RPRETIVE [...] or absence of malignant disease. Performed By: [employer] [address] [place] [address] Monument Letterer: Quiana Castro MD Performed By: #### C OVAG #### [facility] [employer] [facility] [address] [address] Cancer Antigen 19-9on 2021 [facility] Work Phone: Prothrombin Timeon 2 INR 1.5 High 0.9-1.1 [facility] Comment on above: Result Comment: Harry [...] Infarction Performed By: #### P T #### [facility] [address] [place] [address] PT Coag (PPP) [Time] 15.6 s High 9.0-12.0 [facility] Comment on above: Result Comment: . Performed By: #### P T #### [facility] [address] [place] [address] Protime-INRon 10-25-2021 INR Coag (Bld) [Relative time] 1.5 {INR} High [facility] Work Phone: Comment on above: Recommended Anticoag [...] Interpretation and review of laboratory results Abnormal [facility] Work Phone: PT Coag (PPP) [Time] 15.6 s High 9.0 - 12.0 s [facility] Work Phone: Comment on above: . Test Performed by [facility] [employer] [facility], [address], [place], [place] [address] [facility] Work Phone: B-2 Glycoprotein (IGA)on Beta-2 Glyco 1 IgA <2.0 U/mL [facility] Work Phone: Comment on above: Interpretive Informa tion: Results equal to or greater than 20 U/mL = POSITIVE Results less than 20 U/mL = NEGATIVE B2 Glycoprotein I (IgM) Abon 10-24-2021 Beta-2 Glyco 1 IgM <1.5 U/mL [facility] Work Phone: Comment on above: Interpretive Informa tion: Results equal to or greater than 20 U/mL = POSITIVE Results less than 20 U/mL = NEGATIVE B2 Glycoprotein I Igg Abon 0 - Beta-2 Glyco 1 IgG <1.4 U/mL [facility] Work Phone: Comment on above: Interpretive Informa tion: Results equal to or greater than 20 U/mL = POSITIVE Results less than 20 U/mL = NEGATIVE Basic Metabolic Panelon 06-2 -2021 Anion gap [Moles/Vol] 8 mmol/L Normal 3-13 [facility] Comment on above: Performed By: #### C A19O, LUPUS #### The performing lab is in the report. #### NSEO #### [facility] #### HEMDF, LDH3, BMP3, MG3, PT, CEA2 #### [address] [place] [address] #### B2GPM, B2GPA, B2GPG #### [address] [phone] Calcium [Mass/Vol] 8.8 mg/dL Normal 8.4-10.4 [facility] Comment on above: Performed By: #### C A19O, LUPUS #### The performing lab is in the report. #### NSEO #### [facility] #### HEMDF, LDH3, BMP3, MG3, PT, CEA2 #### [address] [place] [address] #### B2GPM, B2GPA, B2GPG #### [address] [address] CO2 [Moles/Vol] 25 mmol/L Normal 22-30 [facility] Comment on above: Performed By: #### C A19O, LUPUS #### The performing lab is in the report. #### NSEO #### [facility] #### HEMDF, LDH3, BMP3, MG3, PT, CEA2 #### [facility] [address] [place] [address] #### B2GPM, B2GPA, B2GPG #### [address] [address] Creatinine [Mass/Vol] 0.74 mg/dL Normal 0.52-1.25 [facility] Comment on above: Performed By: #### C A19O, LUPUS #### The performing lab is in the report. #### NSEO #### [facility] #### HEMDF, LDH3, BMP3, MG3, PT, CEA2 #### [facility] [address] [place] [address] #### B2GPM, B2GPA, B2GPG #### [address] eGFR OTHER > 90.0 Normal >60 [facility] Comment on above: Result Comment: KDIG [...] HEMDF, LDH3, BMP3, MG3, PT, CEA2 #### [facility] [address] [place] [address] #### B2GPM, B2GPA, B2GPG #### [address] [place] GFR/1.73 sq M.predicted among blacks MDRD (S/P/Bld) [Vol rate/Area] mL/min/{1.73_m2} Normal >60 [facility] Comment on above: Performed By: #### C A19O, LUPUS #### The performing lab is in the report. #### NSEO #### [facility] #### HEMDF, LDH3, BMP3, MG3, PT, CEA2 #### [place] [address] [place], [place] #### B2GPM, B2GPA, B2GPG #### [address] Glucose [Mass/Vol] 116 mg/dL High 70-100 [facility] Comment on above: Performed By: #### C A19O, LUPUS #### The performing lab is in the report. #### NSEO #### [facility] #### HEMDF, LDH3, BMP3, MG3, PT, CEA2 #### [address] [place], [place] #### B2GPM, B2GPA, B2GPG #### [address] Urea nitrogen [Mass/Vol] 19 mg/dL High 7-17 [facility] Comment on above: Performed By: #### C A19O, LUPUS #### The performing lab is in the report. #### NSEO #### [facility] #### HEMDF, LDH3, BMP3, MG3, PT, CEA2 #### [address] [place], [place] #### B2GPM, B2GPA, B2GPG #### [address] Chloride [Moles/Vol] 107 mmol/L Normal 98-107 [facility] Comment on above: Performed By: #### C A19O, LUPUS #### The performing lab is in the report. #### NSEO #### [facility] #### HEMDF, LDH3, BMP3, MG3, PT, CEA2 #### [facility] [address] [place] [address] #### B2GPM, B2GPA, B2GPG #### [address] Potassium [Moles/Vol] 3.9 mmol/L Normal 3.5-5.1 [facility] Comment on above: Performed By: #### C A19O, LUPUS #### The performing lab is in the report. #### NSEO #### [facility] #### HEMDF, LDH3, BMP3, MG3, PT, CEA2 #### [place] [address] [place] [address] #### B2GPM, B2GPA, B2GPG #### [address] Sodium [Moles/Vol] 140 mmol/L Normal 135-145 [facility] Comment on above: Performed By: #### C A19O, LUPUS #### The performing lab is in the report. #### NSEO #### [facility] #### HEMDF, LDH3, BMP3, MG3, PT, CEA2 #### [place] [address] [place] [address] #### B2GPM, B2GPA, B2GPG #### [address] Anion gap [Moles/Vol] 8 mmol/L 3 - 13 mmol/L [facility] Calcium [Mass/Vol] 8.8 mg/dL 8.4 - 10. 4 mg/dL [facility] Chloride [Moles/Vol] 107 mmol/L 98 - 10 7 mmol/L [facility] CO2 [Moles/Vol] 25 mmol/L 22 - 30 mmol/L [facility] Creatinine [Mass/Vol] 0.74 mg/dL 0.52 - 1.25 mg/dL [facility] EGFR IF NonAfrican Montenegrin >90.0 >60 mL/min [facility] Comment on above: KDIGO guidelines pro [...] 116 mg/dL High 70 - 100 mg/dL [facility] Interpretation and review of laboratory results Abnormal [facility] Potassium [Moles/Vol] 3.9 mmol/L 3.5 - 5.1 mmol/L [facility] Sodium [Moles/Vol] 140 mmol/L 135 - 145 mmol/L [facility] Urea nitrogen (BldV) [Mass/Vol] 19 mg/dL High 7 - 17 mg/dL [facility] Test Performed by [facility], [address] LAB [facility] Beta-2 Glycoprotein I IgAon 10-24-2021 Beta-2 Glycoprotein I IgA < 2.0 Normal [facility] Comment on above: Result Comment: Inte rpretive Information: Results equal to or greater than 20 U/mL = POSITIVE Results less than 20 U/mL = NEGATIVE Performed By: #### C OVAG #### [facility] [address] [place] [address] Beta-2 Glycoprotein I IgGon 10-24-2021 Beta-2 Glycoprotein I IgG < 1.4 Normal [facility] Comment on above: Result Comment: Inte rpretive Information: Results equal to or greater than 20 U/mL = POSITIVE Results less than 20 U/mL = NEGATIVE Performed By: #### C OVAG #### [facility] [address] [place] [address] Beta-2 Glycoprotein I IgMon 10-24-2021 Beta-2 Glycoprotein I IgM < 1.5 Normal [facility] Comment on above: Result Comment: Inte rpretive Information: Results equal to or greater than 20 U/mL = POSITIVE Results less than 20 U/mL = NEGATIVE Performed By: #### C OVAG #### [facility] [address] [place] [address] No Panel Informationon 10-24 [facility] Test Performed by [facility], [address] [facility] [place] [address] [facility] Work Phone: PROTEIN C FUNCTIONALon 10-24 Interpretation and review of laboratory results Abnormal [facility] Protein C-Functional 185 % High 83 - [...] reference intervals for this test in the [facility] Test [facility] ([facility] [facility]). Performed by [facility], [address] [facility],[place] [id number] www.[employer], Quiana Castro MD - Lab. Director Protein C, Functionalon 10-06 Protein C, Functional 185 % High 83-168 [facility] Comment on above: Result Comment: INTE [...] reference intervals for this test in the [facility] Test Directory ([employer]). Performed by [employer], [address] [facility],[place] [id number] www.[employer], Quiana Castro MD - Lab. Director Performed By: #### P T #### [facility] [address] [place] [address] Protein S, Functionalon 10-06 Protein S, Functional 138 % Normal 66-143 [facility] Comment on above: INTERPRETIVE INFORMA TION: [...] reference intervals for this test in the [facility] Test [facility] ([employer]). Performed by [facility], [address] [facility],[place] [id number] www.[employer], Quiana Castro MD - Lab. Director Result [...] reference intervals for this test in the [facility] Test [facility] ([employer]). Performed by [facility], [address] [facility],[place] [id number] www.[employer], Quiana Castro MD - Lab. Director Performed By: #### P T #### [facility] [employer] [facility] [address] [place] [address] Prothrombin Timeon INR 1.2 High 0.9-1.1 [facility] Comment on above: Result Comment: Harry [...] HEMDF, LDH3, BMP3, MG3, PT, CEA2 #### [facility] [address] [place] [address] #### B2GPM, B2GPA, B2GPG #### [address] [phone] PT Coag (PPP) [Time] 12.6 s High 9.0-12.0 [facility] Comment on above: Result Comment: . Performed By: #### C A19O, LUPUS #### The performing lab is in the report. #### NSEO #### [facility] #### HEMDF, LDH3, BMP3, MG3, PT, CEA2 #### [facility] [address] [place] [address] #### B2GPM, B2GPA, B2GPG #### [address] [address] Protime-INRon 10-24-2021 INR Coag (Bld) [Relative time] 1.2 {INR} High [facility] Comment on above: Recommended Anticoag ulant Therapy: [...] Interpretation and review of laboratory results Abnormal [facility] PT Coag (PPP) [Time] 12.6 s High 9.0 - 12.0 s [facility] Comment on above: . Test Performed by [facility], [address] [place], [place], [place] [address] [facility] Basic Metabolic Panelon 10-05 Anion gap [Moles/Vol] 10 mmol/L Normal 3-13 [facility] Comment on above: Performed By: #### C A19O, LUPUS #### The performing lab is in the report. #### NSEO #### [facility] #### HEMDF, LDH3, BMP3, MG3, PT, CEA2 #### [place] [address] [place] [address] #### B2GPM, B2GPA, B2GPG #### [address] [address] Calcium [Mass/Vol] 9.6 mg/dL Normal 8.4-10.4 [facility] Comment on above: Performed By: #### C A19O, LUPUS #### The performing lab is in the report. #### NSEO #### [facility] #### HEMDF, LDH3, BMP3, MG3, PT, CEA2 #### [address] [place] [address] #### B2GPM, B2GPA, B2GPG #### [address] [address] CO2 [Moles/Vol] 27 mmol/L Normal 22-30 [facility] Comment on above: Performed By: #### C A19O, LUPUS #### The performing lab is in the report. #### NSEO #### [facility] #### HEMDF, LDH3, BMP3, MG3, PT, CEA2 #### [address] [place] [address] #### B2GPM, B2GPA, B2GPG #### [address] [address] Glucose [Mass/Vol] 109 mg/dL High 70-100 [facility] Comment on above: Performed By: #### C A19O, LUPUS #### The performing lab is in the report. #### NSEO #### [facility] #### HEMDF, LDH3, BMP3, MG3, PT, CEA2 #### [address] [place] [address] #### B2GPM, B2GPA, B2GPG #### [address] Urea nitrogen [Mass/Vol] 18 mg/dL High 7-17 [facility] Comment on above: Performed By: #### C A19O, LUPUS #### The performing lab is in the report. #### NSEO #### [facility] #### HEMDF, LDH3, BMP3, MG3, PT, CEA2 #### [address] [place] [address] #### B2GPM, B2GPA, B2GPG #### [address] Creatinine [Mass/Vol] 0.82 mg/dL Normal 0.52-1.25 [facility] Comment on above: Performed By: #### C A19O, LUPUS #### The performing lab is in the report. #### NSEO #### [facility] #### HEMDF, LDH3, BMP3, MG3, PT, CEA2 #### [address] [place] [address] #### B2GPM, B2GPA, B2GPG #### [address] GFR/1.73 sq M.predicted among blacks MDRD (S/P/Bld) [Vol rate/Area] mL/min/{1.73_m2} Normal >60 [facility] Comment on above: Performed By: #### C A19O, LUPUS #### The performing lab is in the report. #### NSEO #### [facility] #### HEMDF, LDH3, BMP3, MG3, PT, CEA2 #### [address] [place] [address] #### B2GPM, B2GPA, B2GPG #### [address] GFR/1.73 sq M.predicted among non-blacks MDRD (S/P/Bld) [Vol rate/Area] 89.9 mL/min/{1.73_m2} Normal >60 [facility] Comment on above: Result Comment: KDIG [...] HEMDF, LDH3, BMP3, MG3, PT, CEA2 #### [facility] [address] [place] [address] #### B2GPM, B2GPA, B2GPG #### [address] [address] Chloride [Moles/Vol] 104 mmol/L Normal 98-107 [facility] Comment on above: Performed By: #### C A19O, LUPUS #### The performing lab is in the report. #### NSEO #### [facility] #### HEMDF, LDH3, BMP3, MG3, PT, CEA2 #### [facility] [address] [place] [address] #### B2GPM, B2GPA, B2GPG #### [address] [address] Potassium [Moles/Vol] 3.9 mmol/L Normal 3.5-5.1 [facility] Comment on above: Performed By: #### C A19O, LUPUS #### The performing lab is in the report. #### NSEO #### [facility] #### HEMDF, LDH3, BMP3, MG3, PT, CEA2 #### [facility] [address] [place] [address] #### B2GPM, B2GPA, B2GPG #### [facility] [address], [place] Sodium [Moles/Vol] 142 mmol/L Normal 135-145 [facility] Comment on above: Performed By: #### C A19O, LUPUS #### The performing lab is in the report. #### NSEO #### [facility] #### HEMDF, LDH3, BMP3, MG3, PT, CEA2 #### [facility] [address] [place] [address] #### B2GPM, B2GPA, B2GPG #### [facility] [address], [place] Anion gap [Moles/Vol] 10 mmol/L 3 - 13 mmol/L [facility] Work Phone: Calcium [Mass/Vol] 9.6 mg/dL 8.4 - 10. 4 mg/dL [facility] Work Phone: [phone] Chloride [Moles/Vol] 104 mmol/L 98 - 10 7 mmol/L [facility] Work Phone: CO2 [Moles/Vol] 27 mmol/L 22 - 30 mmol/L [facility] Work Phone: Creatinine [Mass/Vol] 0.82 mg/dL 0.52 - 1.25 mg/dL [facility] Work Phone: EGFR IF NonAfrican Montenegrin 89.9 mL/min >60 [facility] Work Phone: Comment on above: KDIGO guidelines [...] MDRD (S/P/Bld) [Vol rate/Area] mL/min/{1.73_m2} >60 mL/min [facility] Work Phone: 222 Glucose [Mass/Vol] 109 mg/dL High 70 - 100 mg/dL [facility] Work Phone: 222 Interpretation and review of laboratory results Abnormal [facility] Work Phone: 222 Potassium [Moles/Vol] 3.9 mmol/L 3.5 - 5.1 mmol/L [facility] Work Phone: 222 Sodium [Moles/Vol] 142 mmol/L 135 - 145 mmol/L [facility] Work Phone: 222 Urea nitrogen (BldV) [Mass/Vol] 18 mg/dL High 7 - 17 mg/dL [facility] Work Phone: [phone] CBC with Auto Differentialon 10-23-2021 Absolute Baso # 0.1 10*3/uL 0.0 - 0.2 10*3/uL [facility] Work Phone: [phone] Absolute Neut # 6.6 10*3/uL 1.8 - 7.0 10*3/uL [facility] Work Phone: ) 222 Basophils/100 WBC (Bld) 1.1 % 0.0 - 2.0 % [facility] Work Phone: 222 Eosinophils (Bld) [#/Vol] 0.4 10*3/uL 0.0 - 0.5 10*3/uL [facility] Work Phone: 222 Eosinophils/100 WBC (Bld) 3.9 % 1.0 - 6.0 % [employer] Work Phone: [phone]) 222 Granulocytes/100 WBC (Bld) 64.0 % 40.0 - 80.0 % [employer] Work Phone: Hematocrit (Bld) [Volume fraction] 35.1 % Low 40.0 - 52.0 % [employer] Work Phone: Hemoglobin (Bld) [Mass/Vol] 11.6 g/dL Low 13.0 - 18.0 g/dL [employer] Work Phone: 1) Interpretation and review of laboratory results Abnormal [employer] Phone: ) Lymphocytes (Bld) [#/Vol] 2.6 10*3/uL 1.0 - 4.3 10*3/uL [employer] Phone: 222 Lymphocytes/100 WBC (Bld) 25.0 % 20.0 - 40.0 % [employer] Phone: 222 MCH (RBC) [Entitic mass] 28.4 pg 26.0 - 34.0 pg [employer] Work Phone: MCHC (RBC) [Mass/Vol] 33.1 % 32.0 - 36.0 % [employer] Phone: MCV (RBC) [Entitic vol] 85.9 fL 80.0 - 98.0 fL [employer] Phone: Monocytes (Bld) [#/Vol] 0.6 10*3/uL 0.0 - 0.8 10*3/uL [employer] Work Phone: ) 222 Monocytes/100 WBC (Bld) 6.0 % 2.0 - 10.0 % [employer] Phone: 1) Platelet distribution width (Bld) [Ratio] 17.4 % High 11.5 - 14.5 % [employer] Phone: Platelet mean volume (Bld) [Entitic vol] 8.1 fL 7.4 - 12.4 fL [employer] Work Phone: Comment on above: MPV is a calculated measurement using platelet volume ratio. Platelets (Bld) [#/Vol] 450 10*3/uL High 140 - 440 10*3/uL [facility] Work Phone: RBC (Bld) [#/Vol] 4.08 10*6/uL Low 4.40 - 5.9 0 10*6/uL [facility] Work Phone: WBC (Bld) [#/Vol] 10.3 10*3/uL 3.6 - 10.7 10*3/uL [facility] Work Phone: Test Performed by [facility], [address] [place], [place] [address] [facility] [employer] Work Phone: CEAon 10-23-2021 CEA 0.8 ng/mL 0.0 - 3.0 ng/mL [facility] Work Phone: Test Performed by [facility], [address] [place], [place] [address] [facility] Work Phone: Carcinoembryonic Agon 2021 Carcinoembryonic Ag. 0.8 ng/mL Normal 0.0-3.0 [facility] Comment on above: Performed By: #### C A19O, LUPUS #### The performing lab is in the report. #### NSEO #### [facility] #### HEMDF, LDH3, BMP3, MG3, PT, CEA2 #### [facility] [address] [place] [address] #### B2GPM, B2GPA, B2GPG #### [facility] [address] [place] [address] Hemogram w/ Autodiffon 10-23 Abs Baso Cnt 0.1 10*3/uL Normal 0.0-0.2 [facility] Comment on above: Performed By: #### C A19O, LUPUS #### The performing lab is in the report. #### NSEO #### [facility] #### HEMDF, LDH3, BMP3, MG3, PT, CEA2 #### [place] [address] [place] #### B2GPM, B2GPA, B2GPG #### [address] Abs Neutrophile Cnt 6.6 10*3/uL Normal 1.8-7.0 [facility] Comment on above: Performed By: #### C A19O, LUPUS #### The performing lab is in the report. #### NSEO #### [facility] #### HEMDF, LDH3, BMP3, MG3, PT, CEA2 #### [address] [place] #### B2GPM, B2GPA, B2GPG #### [address] Basophils/100 WBC (Bld) 1.1 % Normal 0.0-2.0 [facility] Comment on above: Performed By: #### C A19O, LUPUS #### The performing lab is in the report. #### NSEO #### [facility] #### HEMDF, LDH3, BMP3, MG3, PT, CEA2 #### [address] [place] #### B2GPM, B2GPA, B2GPG #### [address] Eosinophils (Bld) [#/Vol] 0.4 10*3/uL Normal 0.0-0.5 [facility] Comment on above: Performed By: #### C A19O, LUPUS #### The performing lab is in the report. #### NSEO #### [facility] #### HEMDF, LDH3, BMP3, MG3, PT, CEA2 #### [address] [place] [address] #### B2GPM, B2GPA, B2GPG #### [address] Eosinophils/100 WBC (Bld) 3.9 % Normal 1.0-6.0 [facility] Comment on above: Performed By: #### C A19O, LUPUS #### The performing lab is in the report. #### NSEO #### [facility] #### HEMDF, LDH3, BMP3, MG3, PT, CEA2 #### [place] [address] [place] [address] #### B2GPM, B2GPA, B2GPG #### [address] Erythrocyte distribution width (RBC) [Ratio] 17.4 % High 11.5-14.5 [facility] Comment on above: Performed By: #### C A19O, LUPUS #### The performing lab is in the report. #### NSEO #### [facility] #### HEMDF, LDH3, BMP3, MG3, PT, CEA2 #### [address] [place] #### B2GPM, B2GPA, B2GPG #### [address] Granulocytes/100 WBC (Bld) 64.0 % Normal 40.0-80.0 [facility] Comment on above: Performed By: #### C A19O, LUPUS #### The performing lab is in the report. #### NSEO #### [facility] #### HEMDF, LDH3, BMP3, MG3, PT, CEA2 #### [address] [place] [address] #### B2GPM, B2GPA, B2GPG #### [address] Hematocrit (Bld) [Volume fraction] 35.1 % Low 40.0-52.0 [facility] Comment on above: Performed By: #### C A19O, LUPUS #### The performing lab is in the report. #### NSEO #### [facility] #### HEMDF, LDH3, BMP3, MG3, PT, CEA2 #### [facility] [address] [place] [address] #### B2GPM, B2GPA, B2GPG #### [address] Hemoglobin (Bld) [Mass/Vol] 11.6 g/dL Low 13.0-18.0 [facility] Comment on above: Performed By: #### C A19O, LUPUS #### The performing lab is in the report. #### NSEO #### [facility] #### HEMDF, LDH3, BMP3, MG3, PT, CEA2 #### [facility] [address] [place] [address] #### B2GPM, B2GPA, B2GPG #### [address] Lymphocytes (Bld) [#/Vol] 2.6 10*3/uL Normal 1.0-4.3 [facility] Comment on above: Performed By: #### C A19O, LUPUS #### The performing lab is in the report. #### NSEO #### [facility] #### HEMDF, LDH3, BMP3, MG3, PT, CEA2 #### [facility] [address] [place] #### B2GPM, B2GPA, B2GPG #### [address] Lymphocytes/100 WBC (Bld) 25.0 % Normal 20.0-40.0 [facility] Comment on above: Performed By: #### C A19O, LUPUS #### The performing lab is in the report. #### NSEO #### [facility] #### HEMDF, LDH3, BMP3, MG3, PT, CEA2 #### [facility] [address] [place] [address] #### B2GPM, B2GPA, B2GPG #### [address] MCH (RBC) [Entitic mass] 28.4 pg Normal 26.0-34.0 [facility] Comment on above: Performed By: #### C A19O, LUPUS #### The performing lab is in the report. #### NSEO #### [facility] #### HEMDF, LDH3, BMP3, MG3, PT, CEA2 #### [facility] [address] [place], [place] #### B2GPM, B2GPA, B2GPG #### [address] MCHC 33.1 % Normal 32.0-36.0 [facility] Comment on above: Performed By: #### C A19O, LUPUS #### The performing lab is in the report. #### NSEO #### [facility] #### HEMDF, LDH3, BMP3, MG3, PT, CEA2 #### [facility] [address] [place] #### B2GPM, B2GPA, B2GPG #### [address] MCV (RBC) [Entitic vol] 85.9 fL Normal 80.0-98.0 [facility] Comment on above: Performed By: #### C A19O, LUPUS #### The performing lab is in the report. #### NSEO #### [facility] #### HEMDF, LDH3, BMP3, MG3, PT, CEA2 #### [facility] [address] [place], [place] #### B2GPM, B2GPA, B2GPG #### [address] Monocytes (Bld) [#/Vol] 0.6 10*3/uL Normal 0.0-0.8 [facility] Comment on above: Performed By: #### C A19O, LUPUS #### The performing lab is in the report. #### NSEO #### [facility] #### HEMDF, LDH3, BMP3, MG3, PT, CEA2 #### [facility] [address] [place] #### B2GPM, B2GPA, B2GPG #### [address] Monocytes/100 WBC (Bld) 6.0 % Normal 2.0-10.0 [facility] Comment on above: Performed By: #### C A19O, LUPUS #### The performing lab is in the report. #### NSEO #### [facility] #### HEMDF, LDH3, BMP3, MG3, PT, CEA2 #### [address] [place] #### B2GPM, B2GPA, B2GPG #### [address] Platelet mean volume (Bld) [Entitic vol] 8.1 fL Normal 7.4-12.4 [facility] Comment on above: Result Comment: MPV is a calculated measurement using platelet volume ratio. Performed By: #### C A19O, LUPUS #### The performing lab is in the report. #### NSEO #### [facility] #### HEMDF, LDH3, BMP3, MG3, PT, CEA2 #### [address] [place] #### B2GPM, B2GPA, B2GPG #### [address] Platelets (Bld) [#/Vol] 450 10*3/uL High 140-440 [facility] Comment on above: Performed By: #### C A19O, LUPUS #### The performing lab is in the report. #### NSEO #### [facility] #### HEMDF, LDH3, BMP3, MG3, PT, CEA2 #### [address] [place] #### B2GPM, B2GPA, B2GPG #### [address] RBC (Bld) [#/Vol] 4.08 10*6/uL Low 4.40-5.90 [facility] Comment on above: Performed By: #### C A19O, LUPUS #### The performing lab is in the report. #### NSEO #### [facility] #### HEMDF, LDH3, BMP3, MG3, PT, CEA2 #### [facility] [address] [place] [address] #### B2GPM, B2GPA, B2GPG #### [address] WBC (Bld) [#/Vol] 10.3 10*3/uL Normal 3.6-10.7 [facility] Comment on above: Performed By: #### C A19O, LUPUS #### The performing lab is in the report. #### NSEO #### [facility] #### HEMDF, LDH3, BMP3, MG3, PT, CEA2 #### [facility] [address] [place] [address] #### B2GPM, B2GPA, B2GPG #### [address] LDHon 10-23-2021 LDH 136 U/L Normal 120-246 [facility] Comment on above: Performed By: #### C A19O, LUPUS #### The performing lab is in the report. #### NSEO #### [facility] #### HEMDF, LDH3, BMP3, MG3, PT, CEA2 #### [facility] [address] [place] [address] #### B2GPM, B2GPA, B2GPG #### [address] Lactate Dehydrogenaseon 10-05 LD 136 U/L 120 - 246 U/L [facility] Work Phone: MRI ABDOMEN WO CONTRASTon Patient Name: ANDREW SIFUENTES Magnetic Resonance Imaging ACCESSION EXAM DATE/TIME PROCEDURE ORDERING PROVIDER [id number] 10/23/2021 11:08 EDT MRI Abdomen w/o Contrast WING SRIVASTAVA CPT code 39518 Reason For Exam (MRI Abdomen w/o Contrast) [...] Imaging ACCESSION EXAM DATE/TIME PROCEDURE ORDERING PROVIDER [id number] 10/23/2021 11:08 EDT MRI Abdomen w/o Contrast DONOVAN SRIVASTAVAW CPT code 50084 Reason For Exam (MRI Abdomen w/o Contrast) [...] VLADIMIR Transcribed Date and Time: 10/23/2021 4:36 [facility] Work Phone: MRI ABDOMEN WO CONTRASTOrder ed By: Unknown Result on 10-23-2021 [facility] MRI Abdomen w/o Contraston 0 10-23-2021 MRI Abdomen w/o Contrast [facility]: [id number] Imaging ACCESSION EXAM DATE/TIME PROCEDURE ORDERING PROVIDER [id number] 10/23/2021 11:08 EDT MRI Abdomen w/o Contrast WING SRIVASTAVA CPT code 56450 Reason For Exam (MRI Abdomen w/o Contrast) [...] Transcribed Date and Time: 10/23/2021 4:36 Normal [facility] Magnesiumon 10-23-2021 Magnesium [Mass/Vol] 2.1 mg/dL Normal 1.6-2.3 [facility] Comment on above: Performed By: #### C A19O, LUPUS #### The performing lab is in the report. #### NSEO #### [facility] #### HEMDF, LDH3, BMP3, MG3, PT, CEA2 #### [facility] [address] [place] [address] #### B2GPM, B2GPA, B2GPG #### [facility] [address] [place] [address] Magnesium [Mass/Vol] 2.1 mg/dL 1.6 - 2 .3 mg/dL [facility] Work Phone: No Panel Informationon 10-23 Test Performed by [facility], [address] [place], [place] [id number] [place] [address] LAB [facility] Work Phone: Prothrombin Timeon 2 INR 1.1 Normal 0.9-1.1 [facility] Comment on above: Result Comment: Harry [...] HEMDF, LDH3, BMP3, MG3, PT, CEA2 #### [facility] [address] [place] [address] #### B2GPM, B2GPA, B2GPG #### [facility] [address] [place] [address] PT Coag (PPP) [Time] 12.2 s High 9.0-12.0 [facility] Comment on above: Result Comment: . Performed By: #### C A19O, LUPUS #### The performing lab is in the report. #### NSEO #### [facility] #### HEMDF, LDH3, BMP3, MG3, PT, CEA2 #### [place] [address] [place] [address] #### B2GPM, B2GPA, B2GPG #### [address] [address] Protime-INRon 10-23-2021 INR Coag (Bld) [Relative time] 1.1 {INR} [facility] Work Phone: Comment on above: Recommended Anticoag [...] Interpretation and review of laboratory results Abnormal [facility] Work Phone: PT Coag (PPP) [Time] 12.2 s High 9.0 - 12.0 s [facility] Work Phone: Comment on above: . Test Performed by [facility], [address] [place], [place] [address] [place] [address] LAB [facility] Work Phone: Basic Metabolic Panelon 10-05 Calcium [Mass/Vol] 8.9 mg/dL Normal 8.4-10.4 [facility] Comment on above: Performed By: #### P T #### [place] [address] [place] [address] Glucose [Mass/Vol] 110 mg/dL High 70-100 [facility] Comment on above: Performed By: #### P T #### [facility] [address] [place] [address] Urea nitrogen [Mass/Vol] 14 mg/dL Normal 7-17 [facility] Comment on above: Performed By: #### P T #### [facility] [address] [place] [address] Anion gap [Moles/Vol] 7 mmol/L Normal 3-13 [facility] Comment on above: Performed By: #### P T #### [facility] [address] [place] [address] CO2 [Moles/Vol] 26 mmol/L Normal 22-30 [facility] Comment on above: Performed By: #### P T #### [facility] [address] [place] [address] Creatinine [Mass/Vol] 0.71 mg/dL Normal 0.52-1.25 [facility] Comment on above: Performed By: #### P T #### [facility] [address] [place] [address] eGFR OTHER > 90.0 Normal >60 [facility] Comment on above: Result Comment: KDIG [...] secretion. Performed By: #### P T #### [facility] [address] [place] [address] GFR/1.73 sq M.predicted among blacks MDRD (S/P/Bld) [Vol rate/Area] mL/min/{1.73_m2} Normal >60 [facility] Comment on above: Performed By: #### P T #### [facility] [address] [place] [address] Potassium [Moles/Vol] 3.8 mmol/L Normal 3.5-5.1 [facility] Comment on above: Performed By: #### P T #### [facility] [address] [place] [address] Chloride [Moles/Vol] 106 mmol/L Normal 98-107 [facility] Comment on above: Performed By: #### P T #### [facility] [address] [place] [address] Sodium [Moles/Vol] 139 mmol/L Normal 135-145 [facility] Comment on above: Performed By: #### P T #### [facility] [address] [place] [address] Anion gap [Moles/Vol] 7 mmol/L 3 - 13 mmol/L [facility] Calcium [Mass/Vol] 8.9 mg/dL 8.4 - 10. 4 mg/dL [facility] Chloride [Moles/Vol] 106 mmol/L 98 - 10 7 mmol/L [facility] CO2 [Moles/Vol] 26 mmol/L 22 - 30 mmol/L [facility] Creatinine [Mass/Vol] 0.71 mg/dL 0.52 - 1.25 mg/dL [facility] EGFR IF NonAfrican Montenegrin >90.0 >60 mL/min [facility] Comment on above: KDIGO guidelines pro vide [...] - 10.7 10*3/uL [facility] Test Performed by [facility], [address] LAB [facility] Pelvis Wo Contras ton 10-22-2021 Patient Name: ANDREW SIFUENTES Computed Tomography ACCESSION EXAM DATE/TIME PROCEDURE ORDERING PROVIDER [id number] 10/22/2021 13:[address] Abdomen/Pelvis (No SRIVASTAVA, WING PO, No IV) CPT code 78573 Reason For Exam (CT Abdomen/Pelvis (No PO, [...] HARLAN Transcribed Date and Time: 10/22/2021 2:37 [facility] Humphrey Melton MD - 10/22/2021 Patient Name: ANDREW SIFUENTES Computed Tomography ACCESSION EXAM DATE/TIME PROCEDURE ORDERING PROVIDER [id number] 10/22/2021 13:[address] Abdomen/Pelvis (No SRIVASTAVA, WING PO, No IV) CPT code 98675 Reason For Exam (CT Abdomen/Pelvis (No PO, [...] [facility] Work Phone: CT Abdomen/Pelvis w/o Contra amaran 10-22-2021 CT Abdomen/Pelvis w/o Contrast Patient Name: ANDREW SIFUENTES Computed Tomography ACCESSION EXAM DATE/TIME PROCEDURE ORDERING PROVIDER [id number] 10/22/2021 13:[address] Abdomen/Pelvis (No SRIVASTAVA, WING PO, No IV) CPT code 08802 Reason For Exam (CT Abdomen/Pelvis (No PO, [...] Transcribed Date and Time: 10/22/2021 2:37 Normal [facility] Hemogram w/ Autodiffon 10-22 Abs Baso Cnt 0.1 10*3/uL Normal 0.0-0.2 [facility] Comment on above: Performed By: #### P T #### [facility] [address] [place] [address] Abs Neutrophile Cnt 6.0 10*3/uL Normal 1.8-7.0 [facility] Comment on above: Performed By: #### P T #### [facility] [address] [place] [address] Basophils/100 WBC (Bld) 1.0 % Normal 0.0-2.0 [facility] Comment on above: Performed By: #### P T #### [facility] [address] [place] [address] Eosinophils (Bld) [#/Vol] 0.3 10*3/uL Normal 0.0-0.5 [facility] Comment on above: Performed By: #### P T #### [facility] [address] [place] [address] Eosinophils/100 WBC (Bld) 3.0 % Normal 1.0-6.0 [facility] Comment on above: Performed By: #### P T #### [facility] [address] [place] [address] Erythrocyte distribution width (RBC) [Ratio] 17.1 % High 11.5-14.5 [facility] Comment on above: Performed By: #### P T #### [facility] [address] [place] [address] Granulocytes/100 WBC (Bld) 64.1 % Normal 40.0-80.0 [facility] Comment on above: Performed By: #### P T #### [facility] [address] [place] [address] Hematocrit (Bld) [Volume fraction] 33.4 % Low 40.0-52.0 [facility] Comment on above: Performed By: #### P T #### [facility] [address] [place] [address] Hemoglobin (Bld) [Mass/Vol] 10.9 g/dL Low 13.0-18.0 [facility] Comment on above: Performed By: #### P T #### [facility] [address] [place] [address] Lymphocytes (Bld) [#/Vol] 2.5 10*3/uL Normal 1.0-4.3 [facility] Comment on above: Performed By: #### P T #### [facility] [address] [place] [address] Lymphocytes/100 WBC (Bld) 26.3 % Normal 20.0-40.0 [facility] Comment on above: Performed By: #### P T #### [facility] [address] [place] [address] MCH (RBC) [Entitic mass] 28.2 pg Normal 26.0-34.0 [facility] Comment on above: Performed By: #### P T #### [facility] [address] [place] [address] MCHC 32.7 % Normal 32.0-36.0 [facility] Comment on above: Performed By: #### P T #### [facility] [address] [place] [address] MCV (RBC) [Entitic vol] 86.3 fL Normal 80.0-98.0 [facility] Comment on above: Performed By: #### P T #### [facility] [address] [place] [address] Monocytes (Bld) [#/Vol] 0.5 10*3/uL Normal 0.0-0.8 [facility] Comment on above: Performed By: #### P T #### [facility] [address] [place] [address] Monocytes/100 WBC (Bld) 5.6 % Normal 2.0-10.0 [facility] Comment on above: Performed By: #### P T #### [facility] [address] [place] [address] Platelet mean volume (Bld) [Entitic vol] 7.6 fL Normal 7.4-12.4 [facility] Comment on above: Result Comment: MPV is a calculated measurement using platelet volume ratio. Performed By: #### P T #### [facility] [address] [place] [address] Platelets (Bld) [#/Vol] 369 10*3/uL Normal 140-440 [facility] Comment on above: Performed By: #### P T #### [facility] [address] [place] [address] RBC (Bld) [#/Vol] 3.87 10*6/uL Low 4.40-5.90 [facility] Comment on above: Performed By: #### P T #### [facility] [address] [place] [address] WBC (Bld) [#/Vol] 9.4 10*3/uL Normal 3.6-10.7 [facility] Comment on above: Performed By: #### P T #### [facility] [address] [place] [address] Magnesiumon 10-22-2021 Magnesium [Mass/Vol] 2.0 mg/dL Normal 1.6-2.3 [facility] Comment on above: Performed By: #### P T #### [facility] [address] [place] [address] Magnesium [Mass/Vol] 2.0 mg/dL 1.6 - 2 .3 mg/dL [facility] No Panel Informationon 10-22 Radiology Study observation (narrative) [facility] Work Phone: Test Performed by [facility], [address] [place], [place] [address] [place] [address] LAB [facility] Prothrombin Timeon INR 1.1 Normal 0.9-1.1 [facility] Comment on above: Result Comment: Harry [...] prevent Myocardial Infarction Performed By: #### C Lisseth LUPUS #### The performing lab is in the report. #### NSEO #### [facility] #### HEMDF, LDH3, BMP3, MG3, PT, CEA2 #### [facility] [address] [place] [address] #### B2GPM, B2GPA, B2GPG #### [facility] [address] [place] [address] PT Coag (PPP) [Time] 11.8 s Normal 9.0-12.0 [facility] Comment on above: Result Comment: . Performed By: #### C A19O, LUPUS #### The performing lab is in the report. #### NSEO #### [facility] #### HEMDF, LDH3, BMP3, MG3, PT, CEA2 #### [facility] [address] [place] [address] #### B2GPM, B2GPA, B2GPG #### [email or web address] [facility] [address] [place] [address] Protime-INRon 10-22-2021 INR Coag (Bld) [Relative time] 1.1 {INR} [facility] Work Phone: Comment on above: Recommended Anticoag [...] [Time] 11.8 s 9.0 - 12.0 s [employer] Work Phone: Comment on above: . Test Performed by [facility] [employer] [facility], [address] [place], [place] [address] [facility] LAB [facility] Work Phone: VL Ankle Art Brachial Indice s Extremity Bilateralon 10-22-2021 [facility] Ankle Brachial Index Report Patient DO GurpreetB: 1950 Study 10/21/2021 Name: Andrew Gonzalez (71yrs) Date: Age: 71 Account: [id number] Gender: M Loc: 444W BP: Ordering Physician: Shruthi Malik Speech Coach: Rody Cross RDMS, RVT Interpreting Physician: Carina Call Location: [facility] Indications: Foot wounds. Originally ordered as a full PVR. Ordering BLANKING MACHINE OPERATOR had to modify the order to ABIs [...] supine position. Images were obtained using a [employer] vascular ultrasound machine. Arterial pressure indices: + [...] electronically signed by Carina Call 10/22/2021 13:21 [facility] Carina Call MD - 10/22/2021 [facility] Ankle Brachial Index Report Patient DO GurpreetB: 1950 Study 10/21/2021 Name: Andrew Gonzalez (71yr) Date: Age: 71 Account: [id number] Gender: M Loc: 444W BP: Ordering Physician: Shruthi Malik Speech Coach: Rody Cross RDMS, RVT Interpreting Physician: Carina Call Location: [facility] Indications: Foot wounds. Originally ordered as a full PVR. Ordering BLANKING MACHINE OPERATOR had to modify the order to ABIs [...] supine position. Images were obtained using a [employer] vascular ultrasound machine. Arterial pressure indices: + [...] electronically signed by Carina Call 10/22/2021 13:21 [employer] Work Phone: [employer] Work Phone: Basic Metabolic Panelon 06- Calcium [Mass/Vol] 9.1 mg/dL Normal 8.4-10.4 [facility] Comment on above: Performed By: #### C OVAG #### [facility] [employer] [facility] [address] [place] [address] Anion gap [Moles/Vol] 6 mmol/L Normal 3-13 [facility] Comment on above: Performed By: #### C OVAG #### [facility] [employer] [facility] [address] [place] [address] CO2 [Moles/Vol] 29 mmol/L Normal 22-30 [facility] Comment on above: Performed By: #### C OVAG #### [facility] [employer] [facility] [address] [place] [address] Creatinine [Mass/Vol] 0.90 mg/dL Normal 0.52-1.25 [facility] Comment on above: Performed By: #### C OVAG #### [facility] [employer] [facility] [address] [place] [address] GFR/1.73 sq M.predicted among blacks MDRD (S/P/Bld) [Vol rate/Area] mL/min/{1.73_m2} Normal >60 [facility] [employer] [facility] Comment on above: Performed By: #### C OVAG #### [facility] [employer] [facility] [address] [place] [address] GFR/1.73 sq M.predicted among non-blacks MDRD (S/P/Bld) [Vol rate/Area] 86.6 mL/min/{1.73_m2} Normal >60 [facility] Comment on above: Result Comment: KDIG [...] secretion. Performed By: #### C OVAG #### [facility] [address] [place] [address] Glucose [Mass/Vol] 106 mg/dL High 70-100 [facility] Comment on above: Performed By: #### C OVAG #### [facility] [address] [place] [address] Urea nitrogen [Mass/Vol] 18 mg/dL High 7-17 [facility] Comment on above: Performed By: #### C OVAG #### [facility] [address] [place] [address] Chloride [Moles/Vol] 105 mmol/L Normal 98-107 [facility] Comment on above: Performed By: #### C OVAG #### [facility] [address] [place] [address] Potassium [Moles/Vol] 4.3 mmol/L Normal 3.5-5.1 [facility] Comment on above: Performed By: #### C OVAG #### [facility] [address] [place] [address] Sodium [Moles/Vol] 139 mmol/L Normal 135-145 [facility] Comment on above: Performed By: #### C OVAG #### [facility] [address] [place] [address] Anion gap [Moles/Vol] 6 mmol/L 3 - 13 mmol/L [facility] Calcium [Mass/Vol] 9.1 mg/dL 8.4 - 10. 4 mg/dL [facility] Chloride [Moles/Vol] 105 mmol/L 98 - 10 7 mmol/L [facility] CO2 [Moles/Vol] 29 mmol/L 22 - 30 mmol/L [facility] Creatinine [Mass/Vol] 0.9 mg/dL 0.52 - 1.25 mg/dL [facility] EGFR IF NonAfrican Montenegrin 86.6 mL/min >60 [facility] Comment on above: [...] - 17 mg/dL [facility] Test Performed by [facility], [address] [place], [place] [address] [facility] C-Reactive Proteinon 022 CRP [Mass/Vol] 33.5 mg/L High 0.0-9.9 [facility] Comment on above: Result Comment: . Performed By: #### P T #### [facility] [address] [place] [address] CRP [Mass/Vol] 33.5 mg/L High 0.0 - 9.9 mg/L [facility] Comment on above: . Interpretation and review of laboratory results Abnormal [facility] Test Performed by [facility], [address] [place], [place] [address] [facility] CR Calcaneus 2+ Views Lefton 10-21-2021 CR Calcaneus 2+ Views Left Patient Name: ANDREW SIFUENTES Diagnostic Radiology ACCESSION EXAM DATE/TIME PROCEDURE ORDERING PROVIDER [id number] 10/21/2021 15:30 EDT CR Calcaneus 2+ Views [id number] -SHRUTHI MALIK Left CPT code 51145 Reason For Exam (CR Calcaneus 2+ Views [...] Transcribed Date and Time: 10/21/2021 4:33 Normal [facility] CR Chest 1 View Frontalon CR Chest 1 View Frontal Patient Name: ANDREW SIFUENTES Diagnostic Radiology ACCESSION EXAM DATE/TIME PROCEDURE ORDERING PROVIDER [id number] 10/21/2021 08:16 EDT CR Chest 1 View Frontal [id number] MAY BOGGS CPT code 82819 Reason For Exam (CR Chest 1 View [...] Report Dictated on Final Dictating Physician: MD LOYD WASSIM OSAMA Signed Date and Time: 10/21/2021 8:32 am Signed by: MD LOYD WASSIM OSAMA Transcribed Date and Time: 10/21/2021 8:33 Normal [facility] D-Dimer, Innovanceon 10-21-2 022 D-Dimer, Innovance 1.51 mg/L High <0.19-0.50 [facility] Comment on above: Result Comment: Inno saba D-Dimer values of <0.50 mg/L FEU can be used in combination with a pre-test probability model (e.g. Well's) to exclude pulmonary embolism (PE) disease, as well as an aid in the diagnosis of deep vein thrombosis (DVT). Performed By: #### P T #### [facility] [address] [place] [address] D-Dimer, Quantitativeon 10-05 D-Dimer, Quant 1.51 mg/L High <0.19 - 0.50 [facility] Comment on above: Innovance D-Dimer va lues of <0.50 mg/L FEU can be used in combination with a pre-test probability model (e.g. Well's) to exclude pulmonary embolism (PE) disease, as well as an aid in the diagnosis of deep vein thrombosis (DVT). Interpretation and review of laboratory results Abnormal [facility] Test Performed by [facility], [address], [place], [place] [address] [facility] LAB [facility] ED Provider Noteon ED Provider Note B [facility] EMERGENCY DEPARTMENT ENCOUNTER Pt Name: Andrew [...] (HCC) ? Kidney stone ? Neuropathy ? 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 Attends Anab[employer]ist Services: Not on file ? Active Member [...] LUNGS: Respirations (more content not included)... Normal [facility] Hemogramon 10-21-2021 Erythrocyte distribution width (RBC) [Ratio] 17.3 % High 11.5-14.5 [facility] Comment on above: Performed By: #### C OVAG #### [facility] [address] [place] [address] Hematocrit (Bld) [Volume fraction] 33.6 % Low 40.0-52.0 [facility] Comment on above: Performed By: #### C OVAG #### [facility] [address] [place] [address] Hemoglobin (Bld) [Mass/Vol] 10.9 g/dL Low 13.0-18.0 [facility] Comment on above: Performed By: #### C OVAG #### [facility] [address] [place] [address] MCH (RBC) [Entitic mass] 27.8 pg Normal 26.0-34.0 [facility] Comment on above: Performed By: #### C OVAG #### [facility] [address] [place] [address] MCHC 32.5 % Normal 32.0-36.0 [facility] Comment on above: Performed By: #### C OVAG #### [facility] [address] [place] [address] MCV (RBC) [Entitic vol] 85.6 fL Normal 80.0-98.0 [facility] Comment on above: Performed By: #### C OVAG #### [facility] [address] [place] [address] Platelet mean volume (Bld) [Entitic vol] 7.7 fL Normal 7.4-12.4 [facility] Comment on above: Result Comment: MPV is a calculated measurement using platelet volume ratio. Performed By: #### C OVAG #### [facility] [address] [place] [address] Platelets (Bld) [#/Vol] 404 10*3/uL Normal 140-440 [facility] Comment on above: Performed By: #### C OVAG #### [facility] [address] [place] [address] RBC (Bld) [#/Vol] 3.93 10*6/uL Low 4.40-5.90 [facility] Comment on above: Performed By: #### C OVAG #### [facility] [address] [place] [address] WBC (Bld) [#/Vol] 11.6 10*3/uL High 3.6-10.7 [facility] Comment on above: Performed By: #### C OVAG #### [facility] [address] [place] [address] Hemogram (CBC)on 10-21-2021 Hematocrit (Bld) [Volume fraction] 33.6 % Low 40.0 - 52.0 % [facility] Hemoglobin (Bld) [Mass/Vol] 10.9 g/dL Low 13.0 - 18.0 g/dL [facility] Interpretation and review of laboratory results Abnormal [...] 11.6 10*3/uL High 3.6 - 10.7 10*3/uL [facility] Test Performed by [facility], [address] [place] [address] LAB [facility] NM LUNG VENT/PERFUSION (VQ)o n 10-21-2021 Patient Name: ANDREW SIFUENTES Nuclear Medicine ACCESSION EXAM DATE/TIME PROCEDURE ORDERING PROVIDER [id number] 10/21/2021 07:55 EDT NM Pulmonary Perfusion [id number] MAY BOGGS w/ Vent Aerosol CPT code 14407 A9567 Reason For Exam (NM Pulmonary Perfusion [...] JOHN Transcribed Date and Time: 10/21/2021 8:49 GUY ARMENDARIZ RAD Henry Harvey MD - 10/21/2021 Patient Name: ANDREW SIFUENTES Nuclear Medicine ACCESSION EXAM DATE/TIME PROCEDURE ORDERING PROVIDER [id number] 10/21/2021 07:55 EDT NM Pulmonary Perfusion [id number] -SHAILESH MAY w/ Vent Aerosol CPT code 27612 A9567 Reason For Exam (NM Pulmonary Perfusion [...] JOHN Transcribed Date and Time: 10/21/2021 8:49 [facility] Work Phone: NM LUNG VENT/PERFUSION (VQ)O rdered By: Henry Harvey on 10-21-2021 [facility] Work Phone: NM Pulmonary Perfusion w/ Ve nt Aerosol or Gason 10-21-2021 NM Pulmonary Perfusion w/ Vent Aerosol or Gas Patient Name: ANDREW SIFUENTES Nuclear Medicine ACCESSION EXAM DATE/TIME PROCEDURE ORDERING PROVIDER [id number] 10/21/2021 07:55 EDT NM Pulmonary Perfusion [id number] MAY BOGGS w/ Vent Aerosol CPT code 74823 A9567 Reason For Exam (NM Pulmonary Perfusion [...] Transcribed Date and Time: 10/21/2021 8:49 Normal [facility] No Panel Informationon 10-21 Radiology Study observation (narrative) [facility] Work Phone: Prothrombin Timeon 2 INR 1.1 Normal 0.9-1.1 [facility] Comment on above: Result Comment: Harry [...] Infarction Performed By: #### C OVAG #### [facility] [address] [place] [address] PT Coag (PPP) [Time] 11.5 s Normal 9.0-12.0 [facility] Comment on above: Result Comment: . Performed By: #### C OVAG #### [facility] [address] [place] [address] Protime-INRon 10-21-2021 INR Coag (Bld) [Relative time] 1.1 {INR} [facility] Comment on above: Recommended Anticoag ulant Therapy: [...] [Time] 11.5 s 9.0 - 12.0 s [facility] Comment on above: . Test Performed by [facility], [address] LAB [facility] Retic Count(%)on 10-21-2021 Retic Count(%) 1.6 Normal [facility] Comment on above: Result Comment: [place] orn < 5% Adults 0.5 - 1.5% Performed By: #### P T #### [facility] [address] [place] [address] Reticulocyteson 10-21-[address] Pct 1.6 [facility] Comment on above: [place] < 5% Adults 0.5 - 1.5% Test Performed by [facility], [address] LAB [facility] Sed Rateon 10-21-2021 Sed Rate 63 mm/h High 0-10 [facility] Comment on above: Performed By: #### P T #### [facility] [address] [place] [address] Sedimentation Rateon 022 Interpretation and review of laboratory results Abnormal [facility] Sed Rate 63 mm/h High 0 - 10 mm/h [facility] Test Performed by [facility], [address] LAB [facility] VL CARMELLA Upr/L Extremity Art 1 -2 Levelson 06-17-2022 VL CARMELLA Upr/L Extremity Art 1-2 Levels Patient Name: ANDREW SIFUENTES Ultrasound ACCESSION EXAM DATE/TIME PROCEDURE ORDERING PROVIDER [id number] 10/21/2021 16:12 EDT VL Upr/L Extremity Art 303795 -SHRUTHI MALIK 1-2 Levels CPT code 11409 Reason For Exam (VL Upr/L Extremity Art 1-2 Levels) both lower legs CARMELLA for both feet wounds. Report [facility] Ankle Brachial Index Report Patient DO GurpreetB: 1950 Study 10/21/2021 Name: Andrew Gonzalez (71yrs) Date: Age: 71 Account: [id number] Gender: M Loc: 444W BP: Ordering Physician: Shruthi Malik Speech Coach: Rody Cross RDMS, RVT Interpreting Physician: Carina Call Location: [facility] Indications: Foot wounds. Originally ordered as a full PVR. Ordering BLANKING MACHINE OPERATOR had to modify the order to ABIs [...] supine position. Images were obtained using a Point[employer] vascular ultrasound machine. Arterial pressure indices: + [...] CARINA HENNESSY Cardiovascular ACCESSION EXAM DATE/TIME PROCEDURE [id number] 10/21/2021 16:12 EDT VL Upr/L Extremity Art 1-2 Levels CPT code 94981 Reason For Exam (VL Upr/L Extremity Art 1-2 Levels) both lower legs CARMELLA for both feet wounds. Report [facility] Ankle Brachial Index Report Patient DO GurpreetB: 1950 Study 10/21/2021 Name: Andrew Gonzalez (71yrs) Date: Age: 71 Account: [id number] Cardiovascular Report Gender: M Loc: 444W BP: Ordering Physician: Shruthi Malik Speech Coach: Rody Cross RDMS, RVT Interpreting Physician: Carina Call Location: [facility] Indications: Foot wounds. Originally ordered as a full PVR. Ordering BLANKING MACHINE OPERATOR had to modify the order to ABIs [...] in th (more content not included)... Normal [facility] VL LOWER EXTREMITY BILATERAL VENOUS DUPLEXon 10-21-2021 [facility] Lower Extremity Venous Duplex Report Patient DO GurpreetB: 1950 Study 10/21/2021 Name: Andrew Gonzalez (71yrs) Date: Age: 71 Account: [id number] Gender: M Loc: 444 BP: Ordering Physician: May Cash Speech Coach: Rody Cross RDMS, RVT Interpreting Physician: Carina Call Location: [facility] Indications: Bilateral lower leg edema. CRITICAL RESULTS: [...] supine position. Images were obtained using a [employer] vascular ultrasound machine. Venous flow and imaging: [...] +-------- --------+ + (more content not included)... [facility] Jakub, Carina, MD - 10/21/2021 [facility] Lower Extremity Venous Duplex Report Patient DO GurpreetB: 1950 Study 10/21/2021 Name: Andrew Gonzalez (71yrs) Date: Age: 71 Account: [id number] Gender: M Loc: 444 BP: Ordering Physician: Mya Cash Speech Coach: Rody Cross RDMS, RVT Interpreting Physician: Carina Call Location: [facility] Indications: Bilateral lower leg edema. CRITICAL RESULTS: [...] supine position. Images were obtained using a [employer] vascular ultrasound machine. Venous flow and imaging: [...] + + +----- (more content not included)... [employer] Work Phone: VL LOWER EXTREMITY BILATERAL VENOUS DUPLEXOrdered By: Carina Call on 10-21-2021 [employer] Phone: VL Venous Duplex US Lower Ex t Bilateralon 10-21-2021 VL Venous Duplex US Lower Ext Bilateral Patient Name: ANDREW SIFUENTES Ultrasound ACCESSION EXAM DATE/TIME PROCEDURE ORDERING PROVIDER [id number] 10/21/2021 09:53 EDT VL Venous Duplex US [id number] -MAY CASH Lower Ext Bilateral CPT code 22556 Reason For Exam (VL Venous Duplex US Lower Ext Bilateral) bilateral sqwelling redness Report [facility] Lower Extremity Venous Duplex Report Patient RADHA Sifuentes: 1950 Study 10/21/2021 Name: Andrew Gonzalez (71yr) Date: Age: 71 Account: [id number] Gender: M Loc: 444 BP: Ordering Physician: May Cash Speech Coach: Rody Cross RDMS, RVT Interpreting Physician: Carina Call Location: [facility] Indications: Bilateral lower leg edema. CRITICAL RESULTS: [...] supine position. Images were obtained using a [employer] vascular ultrasound machine. Venous flow and imaging: [...] + + (more content not included)... Normal [employer] XR CALCANEUS LEFT (MIN 2 VIE WS)on 10-21-2021 Patient Name: ANDREW SIFUENTES Diagnostic Radiology ACCESSION EXAM DATE/TIME PROCEDURE ORDERING PROVIDER [id number] 10/21/2021 15:30 EDT CR Calcaneus 2+ Views [id number] -SHRUTHI MALIK CPT code 54767 Reason For Exam (CR Calcaneus 2+ Views [...] and Time: 10/21/2021 4:33 GUY ARMENDARIZ RAD Carla Wong MD - 10/21/2021 [id number] Radiology ACCESSION EXAM DATE/TIME PROCEDURE ORDERING PROVIDER [id number] 10/21/2021 15:30 EDT CR Calcaneus 2+ Views [id number] -MARIBEL MALIKIE Left CPT code 20618 Reason For Exam (CR Calcaneus 2+ Views [...] CALCANEUS LEFT (MIN 2 VIE WS)Ordered By: Carla Wong on 10-21-2021 [facility] Work Phone: XR Chest 1 VWon 10-21-2021 Patient Name: ANDREW SIFUENTES Diagnostic Radiology ACCESSION EXAM DATE/TIME PROCEDURE ORDERING PROVIDER [id number] 10/21/2021 08:16 EDT CR Chest 1 View Frontal [id number] FOSTER CPT code 87793 Reason For Exam (CR Chest 1 View [...] OSAMA Transcribed Date and Time: 10/21/2021 8:33 [facility] Venus Loyd MD - 10/21/2021 Patient Name: [id number] Diagnostic Radiology ACCESSION EXAM DATE/TIME PROCEDURE ORDERING PROVIDER [id number] 10/21/2021 08:16 EDT CR Chest 1 View Frontal [id number] CONTI CPT code 46294 Reason For Exam (CR Chest 1 View [...] OSAMA Transcribed Date and Time: 10/21/2021 8:33 [facility] Work Phone: XR Chest 1 VWOrdered By: Natalie Loyd on 06-17-2022 [facility] Work Phone: Basophil percentageon 2021 Chloride [Moles/Vol] 108 mmol/L 98-[address] [facility] Work Phone: Glucose [Mass/Vol] 93 mg/dL 74-106 [facility] Work Phone: Potassium [Moles/Vol] 3.9 mmol/L 3.5-5.1 [facility] Work Phone: Sodium [Moles/Vol] 140 mmol/L 136-145 [facility] Work Phone: WBC (Bld) [#/Vol] 8.7 10*3/uL 4.4-11.0 [facility] Work Phone: Blood erythrocytes count (nu mber/volume)on 10-20-2021 RBC (Bld) [#/Vol] 3.63 10*6/uL 4.6-6.2 [facility] Work Phone: Blood hemoglobin measurement (mass/volume)on 10-20-2021 Hemoglobin (Bld) [Mass/Vol] 10.1 g/dL 13.0-16.5 [facility] Work Phone: Blood platelet mean volumeon 10-20-2021 Platelet mean volume (Bld) [Entitic vol] 9.8 fL 6.2-12.0 [facility] Work Phone: Determination of erythrocyte mean corpuscular volume (MCV)on 10-20-2021 MCV (RBC) [Entitic vol] 90.1 fL 80-94 [facility] Work Phone: Hematocrit Auto (Bld) [Volum e fraction]on 10-20-2021 Hematocrit (Bld) [Volume fraction] 32.7 % 40-54 [facility] Work Phone: Laboratory - Chemistry and C hemistry - challengeon 10-20-2021 CO2 [Moles/Vol] 25.0 mmol/L 21.0-32.0 [facility] Work Phone: Urea nitrogen/Creatinine [Mass ratio] 17.4 mg/mg 10-20 [facility] Work Phone: Laboratory - Hematology and Cell countson 10-20-2021 Erythrocyte distribution width (RBC) [Entitic vol] 52.1 fL 35.1-43.9 [facility] Work Phone: Erythrocyte distribution width (RBC) [Ratio] 15.6 % 11.6-14.6 [facility] Work Phone: MCH (RBC) [Entitic mass] 27.8 pg 27.0-32.0 [facility] Work Phone: MCHC Auto (RBC) [Mass/Vol]on 10-20-2021 MCHC (RBC) [Mass/Vol] 30.9 g/dL 32-36 [facility] Work Phone: No Panel Informationon 10-20 Estimated GFR (MDRD) Amer 133 mL/min >60 [facility] Work Phone: Comment on above: GFR Calc Estimated GFR (MDRD) Non-Af Amer 110 mL/min >60 [facility] Work Phone: Comment on above: Non- GFR Calc Platelets bldon 10-20-2021 Platelets (Bld) [#/Vol] 404 10*3/uL 150-450 [facility] Work Phone: Serum or plasma calcium oral urement (mass/volume)on 10-20-2021 Calcium [Mass/Vol] 9.1 mg/dL 8.5-10.1 [facility] Work Phone: Serum or plasma creatinine m easurement (mass/volume)on 10-20-2021 Creatinine [Mass/Vol] 0.75 mg/dL 0.70-1.30 [facility] Work Phone: Comment on above: The validity of the calculated GFR & GFRAA in patients over 70 years has not been determined. Clinical correlation is essential. Serum or plasma urea nitroge n measurement (mass/volume)on 10-20-2021 Urea nitrogen [Mass/Vol] 13 mg/dL 7-18 [facility] Work Phone: Thin prep Papanicolaou smear with manual screeningon 10-20-2021 Thin prep Papanicolaou smear with manual screening 7 5-15 [facility] Work Phone: CNPNon 10-17-2021 CNPN Normal [facility] Absolute lymphocyte counton 09-19-2021 Lymphocytes Auto (Unsp spec) [#/Vol] 1.74 10*3/uL 0.83-4.51 [facility] Work Phone: Basophil percentageon 2021 Basophils/100 WBC (Bld) 0.6 % 0-1 [facility] Work Phone: [phone] Bilirubin [Mass/Vol] 0.30 mg/dL 0.20-1.00 [facility] Work Phone: Comment on above: For patients on eltr ombopag therapy, use of Dimension [place] TBIL is not recommended. Chloride [Moles/Vol] 105 mmol/L 98-107 [facility] Work Phone: Eosinophils/100 WBC (Bld) 3.5 % 0-5 [facility] Work Phone: Glucose [Mass/Vol] 91 mg/dL 74-106 [facility] Work Phone: Neutrophils (Bld) [#/Vol] 4.2 10*3/uL 2.0-7.7 [facility] Work Phone: Neutrophils/100 WBC (Bld) 62.6 % 47-70 [facility] Work Phone: Potassium [Moles/Vol] 3.8 mmol/L 3.5-5.1 [facility] Work Phone: Protein [Mass/Vol] 6.3 g/dL 6.4-8.2 [facility] Work Phone: Sodium [Moles/Vol] 139 mmol/L 136-145 [facility] Work Phone: WBC (Bld) [#/Vol] 6.6 10*3/uL 4.4-11.0 [facility] Work Phone: Blood erythrocytes count (nu mber/volume)on 09-19-2021 RBC (Bld) [#/Vol] 3.47 10*6/uL 4.6-6.2 [facility] Work Phone: Blood hemoglobin measurement (mass/volume)on 09-19-2021 Hemoglobin (Bld) [Mass/Vol] 10.2 g/dL 13.0-16.5 [facility] Work Phone: Blood lymphocytes/100 leukoc yteson 09-19-2021 Lymphocytes/100 WBC (Bld) 26.2 % 19-41 [facility] Work Phone: Blood monocytes/100 leukocyt eson 09-19-2021 Monocytes/100 WBC (Bld) 6.5 % 0-10 [facility] Work Phone: Blood platelet mean volumeon 09-19-2021 Platelet mean volume (Bld) [Entitic vol] 9.6 fL 6.2-12.0 [facility] Work Phone: Determination of erythrocyte mean corpuscular volume (MCV)on 09-19-2021 MCV (RBC) [Entitic vol] 94.8 fL 80-94 [facility] Work Phone: Hematocrit Auto (Bld) [Volum e fraction]on 09-19-2021 Hematocrit (Bld) [Volume fraction] 32.9 % 40-54 [facility] Work Phone: Laboratory - Chemistry and C hemistry - challengeon 09-19-2021 ALP [Catalytic activity/Vol] 109 U/L 45-117 [facility] Work Phone: ALT [Catalytic activity/Vol] 23 U/L 16-61 [facility] Work Phone: CO2 [Moles/Vol] 26.0 mmol/L 21.0-32.0 [facility] Work Phone: Globulin (S) [Mass/Vol] 3.5 g/dL 2.2-4.2 [facility] Work Phone: Urea nitrogen/Creatinine [Mass ratio] 15.3 mg/mg 10-20 [facility] Work Phone: Laboratory - Hematology and Cell countson 09-19-2021 Erythrocyte distribution width (RBC) [Entitic vol] 59.4 fL 35.1-43.9 [facility] Work Phone: Erythrocyte distribution width (RBC) [Ratio] 17.1 % 11.6-14.6 [facility] Work Phone: Immature granulocytes/100 WBC (Bld) 0.600 % 0.0-0.9 [facility] Work Phone: Comment on above: IG% - Immature Granu locytes (promyelocytes, myelocytes and metamyelocytes) > 1% indicates that a LEFT SHIFT is Present. MCH (RBC) [Entitic mass] 29.4 pg 27.0-32.0 [facility] Work Phone: Nucleated RBC/100 WBC (Bld) [Ratio] 0 % 0-5 [facility] Work Phone: MCHC Auto (RBC) [Mass/Vol]on 09-19-2021 MCHC (RBC) [Mass/Vol] 31.0 g/dL 32-36 [facility] Work Phone: No Panel Informationon 09-19 Estimated GFR (MDRD) Amer 175 mL/min >60 [facility] Work Phone: Comment on above: GFR Calc Estimated GFR (MDRD) Non-Af Amer 145 mL/min >60 [facility] Work Phone: Comment on above: Non- GFR Calc Platelets bldon 09-19-2021 Platelets (Bld) [#/Vol] 342 10*3/uL 150-450 [facility] Work Phone: Serum or plasma albumin oral urement (mass/volume)on 09-19-2021 Albumin [Mass/Vol] 2.8 g/dL 3.2-5.0 [facility] Work Phone: Serum or plasma albumin/glob ulin mass ratioon 09-19-2021 Albumin/Globulin [Mass ratio] 0.8 {ratio} 0.9-2.4 [facility] Work Phone: Serum or plasma calcium oral urement (mass/volume)on 09-19-2021 Calcium [Mass/Vol] 9.0 mg/dL 8.5-10.1 [facility] Work Phone: Serum or plasma creatinine m easurement (mass/volume)on 09-19-2021 Creatinine [Mass/Vol] 0.59 mg/dL 0.70-1.30 [facility] Work Phone: Comment on above: The validity of the calculated GFR & GFRAA in patients over 70 years has not been determined. Clinical correlation is essential. Serum or plasma urea nitroge n measurement (mass/volume)on 09-19-2021 Urea nitrogen [Mass/Vol] 9 mg/dL 7-18 [facility] Work Phone: Thin prep Papanicolaou smear with manual screeningon 09-19-2021 Thin prep Papanicolaou smear with manual screening 12 U/L 15-37 [facility] Work Phone: Thin prep Papanicolaou smear with manual screening 8 5-15 [facility] Work Phone: OPERATIVE NOon 08-22-2021 OPERATIVE NO Normal [facility] Basic metabolic 2000 panelon 08-19-2021 Anion gap [Moles/Vol] 10 mmol/L Normal 9-18 [facility] Comment on above: Order Comment: Speci men Type: BLOOD SPECIMENOrdering Facility: [facility] Address: [facility] [place] [address] Performed By: #### 2 4321-2 ####[facility] LAB[facility]ATORYCLIA [id number] [place] [address] [place] Calcium [Mass/Vol] 8.6 mg/dL Normal 8.5-10.2 [facility] Comment on above: Order Comment: Speci men Type: BLOOD SPECIMENOrdering Facility: [facility] Address: [address] [place] [address] Performed By: #### 2 4321-2 ####[facility]ATORYCLIA [id number] [address] [place] Chloride [Moles/Vol] 99 mmol/L Normal 97-105 [facility] Comment on above: Order Comment: Speci men Type: BLOOD SPECIMENOrdering Facility: [facility] Address: [address] [place] [address] Performed By: #### 2 4321-2 ####[facility]ATORYCLIA [id number] [address] [place] CO2 [Moles/Vol] 29 mmol/L Normal 22-30 [facility] Comment on above: Order Comment: Speci men Type: BLOOD SPECIMENOrdering Facility: [facility] Address: [address] [place] [address] Performed By: #### 2 4321-2 ####[facility]ORYCLIA [id number] [address] [place] Creatinine [Mass/Vol] 0.58 mg/dL Low 0.73-1.22 [facility] Comment on above: Order Comment: Speci men Type: BLOOD SPECIMENOrdering Facility: [facility] Address: [address] [place] [address] Performed By: #### 2 4321-2 ####[facility]ATORYCLIA [id number] [address] ESTIMATED GLOMERULAR FILTRATION RATE 106 mL/min/1.73m??? Normal >=60 [facility] Comment on above: Order Comment: Speci men Type: BLOOD SPECIMENOrdering Facility: [facility] Address: [address] [place] [address] Result Comment: Luzmaria mated Glomerular Filtration Rate [...] actual GFR. Performed By: #### 2 4321-2 ####[facility]ATORYCLIA [id number] [place] [address] [place] Glucose [Mass/Vol] 101 mg/dL High 74-99 [facility] Comment on above: Order Comment: Shira feldman Type: BLOOD SPECIMENOrdering Facility: [facility] Address: [address] [address] Result Comment: The [place] [employer] (ADA) provides guidance for cutoff [...] Standards of Medical Care in Diabetes 2016, [place] [employer]. Diabetes Care. 2016.39(Suppl 1). Performed By: #### 2 4321-2 ####[facility]ATORYCLIA [id number] [place] [address] [place] Potassium [Moles/Vol] 3.5 mmol/L Low 3.7-5.1 [facility] Comment on above: Order Comment: Shira feldman Type: BLOOD SPECIMENOrdering Facility: [facility] Address: [address] [id number] Performed By: #### 2 4321-2 ####[facility]ATORYCLIA [id number] [place] [address] [place] Sodium [Moles/Vol] 138 mmol/L Normal 136-144 [facility] Comment on above: Order Comment: Shira feldman Type: BLOOD SPECIMENOrdering Facility: [facility] Address: [address] [id number] Performed By: #### 2 4321-2 ####[facility]ATORYCLIA [id number] [place] [address] [place] Urea nitrogen [Mass/Vol] 11 mg/dL Normal 9-24 [facility] Comment on above: Order Comment: Speci men Type: BLOOD SPECIMENOrdering Facility: [facility] Address: [address] [place] [address] Performed By: #### 2 4321-2 ####[facility] LAB[facility]ATORYCLIA [id number] [address] [place] CASE MANAGEMon 08-19-2021 CASE MANAGEM Normal [facility] CBC W Auto Differential pane l (Bld)on 08-19-2021 Basophils (Bld) [#/Vol] 0.03 10*3/uL Normal <0.11 [facility] Comment on above: Order Comment: Speci men Type: BLOOD SPECIMENOrdering Facility: [facility] Address: [address] [place] [address] Performed By: #### 5 7021-8 ####[facility]ATORYCLIA [id number] [address] [place] Basophils/100 WBC (Bld) 0.4 % Normal [facility] Comment on above: Order Comment: Speci men Type: BLOOD SPECIMENOrdering Facility: [facility] Address: [address] [place] [address] Performed By: #### 5 7021-8 ####[facility] LABORATORYCLIA [id number] [address] [place] Differential cell count method Nom (Bld) Auto Normal [facility] Comment on above: Order Comment: Speci men Type: BLOOD SPECIMENOrdering Facility: [facility] Address: [address] [place] [address] Performed By: #### 5 7021-8 ####[facility] LABORATORYCLIA [id number] [address] [place] Eosinophils (Bld) [#/Vol] 0.24 10*3/uL Normal <0.46 [facility] Comment on above: Order Comment: Speci men Type: BLOOD SPECIMENOrdering Facility: [facility] Address: [address] [place] [address] Performed By: #### 5 7021-8 ####[facility] LABORATORYCLIA [id number] [address] Eosinophils/100 WBC (Bld) 3.1 % Normal [facility] Comment on above: Order Comment: Speci men Type: BLOOD SPECIMENOrdering Facility: [facility] Address: [address] [place] [address] Performed By: #### 5 7021-8 ####[facility] LABORATORYCLIA [id number] [address] [place] OF [facility] Erythrocyte distribution width (RBC) [Ratio] 17.5 % High 11.5-15.0 [facility] Comment on above: Order Comment: Speci men Type: BLOOD SPECIMENOrdering Facility: [facility] [facility] Address: [address] [place] [address] Performed By: #### 5 7021-8 ####[facility] LABORATORYCLIA [id number] [address] Hematocrit (Bld) [Volume fraction] 30.2 % Low 39.0-51.0 [facility] Comment on above: Order Comment: Speci men Type: BLOOD SPECIMENOrdering Facility: [facility] Address: [address] [place] [address] Performed By: #### 5 7021-8 ####[facility] LABORATORYCLIA [id number] [address] [place] Hemoglobin (Bld) [Mass/Vol] 9.6 g/dL Low 13.0-17.0 [facility] Comment on above: Order Comment: Speci men Type: BLOOD SPECIMENOrdering Facility: [facility] Address: [address] [place] [address] Performed By: #### 5 7021-8 ####[facility]ORATORYCLIA [id number] [address] IMMATURE GRAN % 0.4 % Normal [facility] Comment on above: Order Comment: Speci men Type: BLOOD SPECIMENOrdering Facility: [facility] Address: [address] [place] [address] Performed By: #### 5 7021-8 ####[facility] LABORATORYCLIA [id number] [address] IMMATURE GRAN ABS 0.03 k/uL Normal <0.10 [facility] Comment on above: Order Comment: Speci men Type: BLOOD SPECIMENOrdering Facility: [facility] Address: [address] [place] [address] Performed By: #### 5 7021-8 ####[facility] LABORATORYCLIA [id number] [address] [place] [facility] Lymphocytes (Bld) [#/Vol] 1.71 10*3/uL Normal 1.00-4.00 [facility] Comment on above: Order Comment: Speci men Type: BLOOD SPECIMENOrdering Facility: [facility] Address: [address] [place] [address] Performed By: #### 5 7021-8 ####[facility] LABORATORYCLIA [id number] [address] Lymphocytes/100 WBC (Bld) 22.2 % Normal [facility] Comment on above: Order Comment: Speci men Type: BLOOD SPECIMENOrdering Facility: [facility] Address: [address] [place] [address] Performed By: #### 5 7021-8 ####[facility] LABORATORYCLIA [id number] [address] [place] MCH (RBC) [Entitic mass] 29.4 pg Normal 26.0-34.0 [facility] Comment on above: Order Comment: Speci men Type: BLOOD SPECIMENOrdering Facility: [facility] Address: [address] [place] [address] Performed By: #### 5 7021-8 ####[facility] LABORATORYCLIA [id number] [address] STATES [facility] MCHC (RBC) [Mass/Vol] 31.8 g/dL Normal 30.5-36.0 [facility] Comment on above: Order Comment: Speci men Type: BLOOD SPECIMENOrdering Facility: [facility] Address: [address] [place] [address] Performed By: #### 5 7021-8 ####[facility] LABORATORYCLIA [id number] [address] [place] [facility] MCV (RBC) [Entitic vol] 92.6 fL Normal 80.0-100.0 [facility] Comment on above: Order Comment: Speci men Type: BLOOD SPECIMENOrdering Facility: [facility] Address: [address] [place] [address] Performed By: #### 5 7021-8 ####[facility] LABORATORYCLIA [id number] [address] [place] [facility] Monocytes (Bld) [#/Vol] 0.50 10*3/uL Normal <0.87 [facility] Comment on above: Order Comment: Speci men Type: BLOOD SPECIMENOrdering Facility: [facility] Address: [address] [place] [address] Performed By: #### 5 7021-8 ####[facility] LABORATORYCLIA [id number] [address] Monocytes/100 WBC (Bld) 6.5 % Normal [facility] Comment on above: Order Comment: Speci men Type: BLOOD SPECIMENOrdering Facility: [facility] Address: [address] [place] [address] Performed By: #### 5 7021-8 ####[facility] LABORATORYCLIA [id number] [address] [place] Neutrophils (Bld) [#/Vol] 5.20 10*3/uL Normal 1.45-7.50 [facility] Comment on above: Order Comment: Speci men Type: BLOOD SPECIMENOrdering Facility: [facility] Address: [address] [place] [address] Performed By: #### 5 7021-8 ####[facility]ORATORYCLIA [id number] [address] Neutrophils/100 WBC (Bld) 67.4 % Normal [facility] Comment on above: Order Comment: Speci men Type: BLOOD SPECIMENOrdering Facility: [facility] Address: [address] [place] [address] Performed By: #### 5 7021-8 ####[facility]ORATORYCLIA [id number] [address] Nucleated RBC (Bld) [#/Vol] 10*3/uL Normal <0.01 [facility] Comment on above: Order Comment: Speci men Type: BLOOD SPECIMENOrdering Facility: [facility] Address: [address] [place] [address] Performed By: #### 5 7021-8 ####[facility] LABORATORYCLIA [id number] [address] Nucleated RBC/100 WBC (Bld) [Ratio] 0.0 /100 WBC Normal [facility] Comment on above: Order Comment: Speci men Type: BLOOD SPECIMENOrdering Facility: [facility] Address: [address] [place] [address] Performed By: #### 5 7021-8 ####[facility]ORATORYCLIA [id number] [address] [place] Platelet mean volume (Bld) [Entitic vol] 8.9 fL Low 9.0-12.7 [facility] Comment on above: Order Comment: Speci men Type: BLOOD SPECIMENOrdering Facility: [facility] Address: [address] [place] [address] Performed By: #### 5 7021-8 ####[facility] LABORATORYCLIA [id number] [address] [place] [facility] Platelets (Bld) [#/Vol] 408 10*3/uL High 150-400 [facility] Comment on above: Order Comment: Speci men Type: BLOOD SPECIMENOrdering Facility: [facility] Address: [address] [place] [address] Performed By: #### 5 7021-8 ####[facility]ORATORYCLIA [id number] [place] [address] [place] RBC (Bld) [#/Vol] 3.26 10*6/uL Low 4.20-6.00 [facility] Comment on above: Order Comment: Speci men Type: BLOOD SPECIMENOrdering Facility: [facility] Address: [address] [place] [address] Performed By: #### 5 7021-8 ####[facility]ORATORYCLIA [id number] [address] [place] [facility] WBC (Bld) [#/Vol] 7.71 10*3/uL Normal 3.70-11.00 [facility] Comment on above: Order Comment: Speci men Type: BLOOD SPECIMENOrdering Facility: [facility] Address: [address] [place] [address] Performed By: #### 5 7021-8 ####[facility]ORATORYCLIA [id number] [address] [place] CNDSon 08-19-2021 CNDS Normal [facility] CONSULT PROGon 08-19-2021 CONSULT PROG Normal [facility] THERAPY NTon 08-19-2021 THERAPY NT Normal [facility] Basic metabolic 2000 panelon 08-18-2021 Anion gap [Moles/Vol] 11 mmol/L Normal 9-18 [facility] Comment on above: Order Comment: Speci men Type: BLOOD SPECIMENOrdering Facility: [facility] Address: [address] [place] [address] Performed By: #### 2 4321-2 ####[facility]ORATORYCLIA [id number] [address] [place] Calcium [Mass/Vol] 8.6 mg/dL Normal 8.5-10.2 [facility] Comment on above: Order Comment: Speci men Type: BLOOD SPECIMENOrdering Facility: [facility] Address: [address] [address] Performed By: #### 2 4321-2 ####[facility]ORATORYCLIA [id number] [place] [address] [place] Chloride [Moles/Vol] 98 mmol/L Normal 97-105 [facility] Comment on above: Order Comment: Speci men Type: BLOOD SPECIMENOrdering Facility: [facility] Address: [address] [place] [address] Performed By: #### 2 4321-2 ####[facility]ORATORYCLIA [id number] [address] [place] CO2 [Moles/Vol] 28 mmol/L Normal 22-30 [facility] Comment on above: Order Comment: Speci men Type: BLOOD SPECIMENOrdering Facility: [facility] Address: [address] [place] [address] Performed By: #### 2 4321-2 ####[facility]ORATORYCLIA [id number] [address] [place] Creatinine [Mass/Vol] 0.56 mg/dL Low 0.73-1.22 [facility] Comment on above: Order Comment: Speci men Type: BLOOD SPECIMENOrdering Facility: [facility] Address: [address] [place] [address] Performed By: #### 2 4321-2 ####[facility]ORATORYCLIA [id number] [address] ESTIMATED GLOMERULAR FILTRATION RATE 107 mL/min/1.73m??? Normal >=60 [facility] Comment on above: Order Comment: Speci men Type: BLOOD SPECIMENOrdering Facility: [facility] Address: [address] [place] [address] Result Comment: Luzmaria mated Glomerular Filtration Rate [...] actual GFR. Performed By: #### 2 4321-2 ####[facility]CL[facility] [id number] [place] [address] [place] Glucose [Mass/Vol] 113 mg/dL High 74-99 [facility] Comment on above: Order Comment: Shira feldman Type: BLOOD SPECIMENOrdering Facility: [facility] Address: [address] [place] [address] Result Comment: The [place] [employer] (ADA) provides guidance for cutoff [...] Standards of Medical Care in Diabetes 2016, [place] [employer]. Diabetes Care. 2016.39(Suppl 1). Performed By: #### 2 4321-2 ####[facility]ORATORYCLIA [id number] [address] [place] Potassium [Moles/Vol] 3.5 mmol/L Low 3.7-5.1 [facility] Comment on above: Order Comment: Shira feldman Type: BLOOD SPECIMENOrdering Facility: [facility] Address: [address] [id number] Performed By: #### 2 4321-2 ####[facility]ORATORYCLIA [id number] [place] [id number] [place] Sodium [Moles/Vol] 137 mmol/L Normal 136-144 [facility] Comment on above: Order Comment: Speci men Type: BLOOD SPECIMENOrdering Facility: [facility] Address: [address] [place] [address] Performed By: #### 2 4321-2 ####[facility]ORATORYCLIA [id number] [address] [place] Urea nitrogen [Mass/Vol] 10 mg/dL Normal 9-24 [facility] Comment on above: Order Comment: Speci men Type: BLOOD SPECIMENOrdering Facility: [facility] Address: [address] [place] [address] Performed By: #### 2 4321-2 ####[facility]ORATORYCLIA [id number] [address] [place] CBC W Auto Differential pane l (Bld)on 08-18-2021 Basophils (Bld) [#/Vol] 10*3/uL Normal <0.11 [facility] Comment on above: Order Comment: Speci men Type: BLOOD SPECIMENOrdering Facility: [facility] Address: [address] [place] [address] Performed By: #### 5 7021-8 ####[facility]ORATORYCLIA [id number] [address] [place] Basophils/100 WBC (Bld) 0.3 % Normal [facility] Comment on above: Order Comment: Speci men Type: BLOOD SPECIMENOrdering Facility: [facility] Address: [address] [place] [address] Performed By: #### 5 7021-8 ####[facility]ORATORYCLIA [id number] [address] [place] [facility] Differential cell count method Nom (Bld) Auto Normal [facility] Comment on above: Order Comment: Speci men Type: BLOOD SPECIMENOrdering Facility: [facility] Address: [address] [place] [address] Performed By: #### 5 7021-8 ####[facility]ORATORYCLIA [id number] [address] [place] Eosinophils (Bld) [#/Vol] 0.37 10*3/uL Normal <0.46 [facility] Comment on above: Order Comment: Speci men Type: BLOOD SPECIMENOrdering Facility: [facility] Address: [address] [place] [address] Performed By: #### 5 7021-8 ####[facility]ORATORYCLIA [id number] [address] Eosinophils/100 WBC (Bld) 4.8 % Normal [facility] Comment on above: Order Comment: Speci men Type: BLOOD SPECIMENOrdering Facility: [facility] Address: [address] [place] [address] Performed By: #### 5 7021-8 ####[facility]ORATORYCLIA [id number] [address] Erythrocyte distribution width (RBC) [Ratio] 17.5 % High 11.5-15.0 [facility] Comment on above: Order Comment: Speci men Type: BLOOD SPECIMENOrdering Facility: [facility] Address: [address] [place] [address] Performed By: #### 5 7021-8 ####[facility] LABORATORYCLIA [id number] [address] [place] Hematocrit (Bld) [Volume fraction] 30.2 % Low 39.0-51.0 [facility] Comment on above: Order Comment: Speci men Type: BLOOD SPECIMENOrdering Facility: [facility] Address: [address] [place] [address] Performed By: #### 5 7021-8 ####[facility]ORATORYCLIA [id number] [address] Hemoglobin (Bld) [Mass/Vol] 9.5 g/dL Low 13.0-17.0 [facility] Comment on above: Order Comment: Speci men Type: BLOOD SPECIMENOrdering Facility: [facility] Address: [address] [place] [address] Performed By: #### 5 7021-8 ####[facility]ORATORYCLIA [id number] [address] IMMATURE GRAN % 0.4 % Normal [facility] Comment on above: Order Comment: Speci men Type: BLOOD SPECIMENOrdering Facility: [facility] Address: [address] [place] [address] Performed By: #### 5 7021-8 ####[facility]ORATORYCLIA [id number] [address] IMMATURE GRAN ABS 0.03 k/uL Normal <0.10 [facility] Comment on above: Order Comment: Speci men Type: BLOOD SPECIMENOrdering Facility: [facility] Address: [address] [place] [address] Performed By: #### 5 7021-8 ####[facility] LABORATORYCLIA [id number] [address] Lymphocytes (Bld) [#/Vol] 1.85 10*3/uL Normal 1.00-4.00 [facility] Comment on above: Order Comment: Speci men Type: BLOOD SPECIMENOrdering Facility: [facility] Address: [address] [place] [address] Performed By: #### 5 7021-8 ####[facility] LABORATORYCLIA [id number] [address] Lymphocytes/100 WBC (Bld) 23.8 % Normal [facility] Comment on above: Order Comment: Speci men Type: BLOOD SPECIMENOrdering Facility: [facility] Address: [address] [place] [address] Performed By: #### 5 7021-8 ####[facility]ORATORYCLIA [id number] [address] [place] MCH (RBC) [Entitic mass] 29.5 pg Normal 26.0-34.0 [facility] Comment on above: Order Comment: Speci men Type: BLOOD SPECIMENOrdering Facility: [facility] Address: [address] [place] [address] Performed By: #### 5 7021-8 ####[facility]ORATORYCLIA [id number] [address] MCHC (RBC) [Mass/Vol] 31.5 g/dL Normal 30.5-36.0 [facility] Comment on above: Order Comment: Speci men Type: BLOOD SPECIMENOrdering Facility: [facility] Address: [address] [place] [address] Performed By: #### 5 7021-8 ####[facility]ORATORYCLIA [id number] [address] MCV (RBC) [Entitic vol] 93.8 fL Normal 80.0-100.0 [facility] Comment on above: Order Comment: Speci men Type: BLOOD SPECIMENOrdering Facility: [facility] Address: [address] [place] [address] Performed By: #### 5 7021-8 ####[facility]ORATORYCLIA [id number] [address] Monocytes (Bld) [#/Vol] 0.49 10*3/uL Normal <0.87 [facility] Comment on above: Order Comment: Speci men Type: BLOOD SPECIMENOrdering Facility: [facility] Address: [address] [place] [address] Performed By: #### 5 7021-8 ####[facility]ORATORYCLIA [id number] [address] Monocytes/100 WBC (Bld) 6.3 % Normal [facility] Comment on above: Order Comment: Speci men Type: BLOOD SPECIMENOrdering Facility: [facility] Address: [address] [place] [address] Performed By: #### 5 7021-8 ####[facility] LABORATORYCLIA [id number] [place] [address] [place] Neutrophils (Bld) [#/Vol] 5.00 10*3/uL Normal 1.45-7.50 [facility] Comment on above: Order Comment: Speci men Type: BLOOD SPECIMENOrdering Facility: [facility] Address: [address] [place] [address] Performed By: #### 5 7021-8 ####[facility]ATORYCLIA [id number] [address] [place] Neutrophils/100 WBC (Bld) 64.4 % Normal [facility] Comment on above: Order Comment: Speci men Type: BLOOD SPECIMENOrdering Facility: [facility] Address: [address] [place] [address] Performed By: #### 5 7021-8 ####[facility]ORATORYCLIA [id number] [address] [place] Nucleated RBC (Bld) [#/Vol] 10*3/uL Normal <0.01 [facility] Comment on above: Order Comment: Speci men Type: BLOOD SPECIMENOrdering Facility: [facility] Address: [address] [place] [address] Performed By: #### 5 7021-8 ####[facility]ATORYCLIA [id number] [address] [place] Nucleated RBC/100 WBC (Bld) [Ratio] 0.0 /100 WBC Normal [facility] Comment on above: Order Comment: Speci men Type: BLOOD SPECIMENOrdering Facility: [facility] Address: [address] [place] [address] Performed By: #### 5 7021-8 ####[facility] LABORATORYCLIA [id number] [address] [place] Platelet mean volume (Bld) [Entitic vol] 9.1 fL Normal 9.0-12.7 [facility] Comment on above: Order Comment: Speci men Type: BLOOD SPECIMENOrdering Facility: [facility] Address: [address] [place] [address] Performed By: #### 5 7021-8 ####[facility]ATORYCLIA [id number] [address] [place] Platelets (Bld) [#/Vol] 391 10*3/uL Normal 150-400 [facility] Comment on above: Order Comment: Speci men Type: BLOOD SPECIMENOrdering Facility: [facility] Address: [address] [place] [address] Performed By: #### 5 7021-8 ####[facility]ORATORYCLIA [id number] [place] [address] [place] RBC (Bld) [#/Vol] 3.22 10*6/uL Low 4.20-6.00 [facility] Comment on above: Order Comment: Speci men Type: BLOOD SPECIMENOrdering Facility: [facility] Address: [address] [place] [address] Performed By: #### 5 7021-8 ####[facility]ATORYCLIA [id number] [address] STATES OF [facility] WBC (Bld) [#/Vol] 7.76 10*3/uL Normal 3.70-11.00 [facility] Comment on above: Order Comment: Speci men Type: BLOOD SPECIMENOrdering Facility: [facility] Address: [address] [place] [address] Performed By: #### 5 7021-8 ####[facility] LABORATORYCLIA [id number] [address] OF [facility] CONSULT PROGon 08-18-2021 CONSULT PROG Normal [facility] CASE MANAGEMon 08-17-2021 CASE MANAGEM Normal [facility] CBC W Auto Differential pane l (Bld)on 08-17-2021 Basophils (Bld) [#/Vol] 0.04 10*3/uL Normal <0.11 [facility] Comment on above: Order Comment: Speci men Type: BLOOD SPECIMENOrdering Facility: [facility] Address: [address] [place] [address] Performed By: #### 5 7021-8 ####[facility]ORATORYCLIA [id number] [address] STATES [facility] Basophils/100 WBC (Bld) 0.5 % Normal [facility] Comment on above: Order Comment: Speci men Type: BLOOD SPECIMENOrdering Facility: [facility] Address: [address] [place] [address] Performed By: #### 5 7021-8 ####[facility]ATORYCLIA [id number] [address] [place] Differential cell count method Nom (Bld) Auto Normal [facility] Comment on above: Order Comment: Speci men Type: BLOOD SPECIMENOrdering Facility: [facility] Address: [address] [place] [address] Performed By: #### 5 7021-8 ####[facility]ATORYCLIA [id number] [address] [place] Eosinophils (Bld) [#/Vol] 0.31 10*3/uL Normal <0.46 [facility] Comment on above: Order Comment: Speci men Type: BLOOD SPECIMENOrdering Facility: [facility] Address: [address] [place] [address] Performed By: #### 5 7021-8 ####[facility]ORYCLIA [id number] [address] Eosinophils/100 WBC (Bld) 3.7 % Normal [facility] Comment on above: Order Comment: Speci men Type: BLOOD SPECIMENOrdering Facility: [facility] Address: [address] [place] [address] Performed By: #### 5 7021-8 ####[facility]ATORYCLIA [id number] [address] [place] Erythrocyte distribution width (RBC) [Ratio] 17.4 % High 11.5-15.0 [facility] Comment on above: Order Comment: Speci men Type: BLOOD SPECIMENOrdering Facility: [facility] Address: [address] [place] [address] Performed By: #### 5 7021-8 ####[facility]ORATORYCLIA [id number] [address] Hematocrit (Bld) [Volume fraction] 30.6 % Low 39.0-51.0 [facility] Comment on above: Order Comment: Speci men Type: BLOOD SPECIMENOrdering Facility: [facility] Address: [address] [place] [address] Performed By: #### 5 7021-8 ####[facility]ATORYCLIA [id number] [address] Hemoglobin (Bld) [Mass/Vol] 9.6 g/dL Low 13.0-17.0 [facility] Comment on above: Order Comment: Speci men Type: BLOOD SPECIMENOrdering Facility: [facility] Address: [address] [place] [address] Performed By: #### 5 7021-8 ####[facility] LABORATORYCLIA [id number] [address] IMMATURE GRAN % 0.2 % Normal [facility] Comment on above: Order Comment: Speci men Type: BLOOD SPECIMENOrdering Facility: [facility] Address: [address] [place] [address] Performed By: #### 5 7021-8 ####[facility] LABORATORYCLIA [id number] [address] IMMATURE GRAN ABS <0.03 Normal <0.10 [facility] [facility] Comment on above: Order Comment: Speci men Type: BLOOD SPECIMENOrdering Facility: [facility] Address: [address] [place] [address] Performed By: #### 5 7021-8 ####[facility] LABORATORYCLIA [id number] [address] OF [facility] Lymphocytes (Bld) [#/Vol] 1.66 10*3/uL Normal 1.00-4.00 [facility] Comment on above: Order Comment: Speci men Type: BLOOD SPECIMENOrdering Facility: [facility] Address: [address] [place] [address] Performed By: #### 5 7021-8 ####[facility] LABORATORYCLIA [id number] [address] Lymphocytes/100 WBC (Bld) 19.9 % Normal [facility] Comment on above: Order Comment: Speci men Type: BLOOD SPECIMENOrdering Facility: [facility] Address: [address] [place] [address] Performed By: #### 5 7021-8 ####[facility] LABORATORYCLIA [id number] [address] STATES OF [facility] MCH (RBC) [Entitic mass] 28.9 pg Normal 26.0-34.0 [facility] Comment on above: Order Comment: Speci men Type: BLOOD SPECIMENOrdering Facility: [facility] Address: [address] [place] [address] Performed By: #### 5 7021-8 ####[facility] LABORATORYCLIA [id number] [address] STATES [facility] MCHC (RBC) [Mass/Vol] 31.4 g/dL Normal 30.5-36.0 [facility] Comment on above: Order Comment: Speci men Type: BLOOD SPECIMENOrdering Facility: [facility] Address: [address] [place] [address] Performed By: #### 5 7021-8 ####[facility] LABORATORYCLIA [id number] [address] [place] MCV (RBC) [Entitic vol] 92.2 fL Normal 80.0-100.0 [facility] Comment on above: Order Comment: Speci men Type: BLOOD SPECIMENOrdering Facility: [facility] Address: [address] [place] [address] Performed By: #### 5 7021-8 ####[facility]ORATORYCLIA [id number] [address] [place] Monocytes (Bld) [#/Vol] 0.52 10*3/uL Normal <0.87 [facility] Comment on above: Order Comment: Speci men Type: BLOOD SPECIMENOrdering Facility: [facility] Address: [address] [place] [address] Performed By: #### 5 7021-8 ####[facility] LABORATORYCLIA [id number] [place] [address] [place] Monocytes/100 WBC (Bld) 6.2 % Normal [facility] Comment on above: Order Comment: Speci men Type: BLOOD SPECIMENOrdering Facility: [facility] Address: [address] [place] [address] Performed By: #### 5 7021-8 ####[facility]ORATORYCLIA [id number] [address] [place] Neutrophils (Bld) [#/Vol] 5.78 10*3/uL Normal 1.45-7.50 [facility] Comment on above: Order Comment: Speci men Type: BLOOD SPECIMENOrdering Facility: [facility] Address: [address] [place] [address] Performed By: #### 5 7021-8 ####[facility]ORATORYCLIA [id number] [address] [place] Neutrophils/100 WBC (Bld) 69.5 % Normal [facility] Comment on above: Order Comment: Speci men Type: BLOOD SPECIMENOrdering Facility: [facility] Address: [address] [place] [address] Performed By: #### 5 7021-8 ####[facility]ORATORYCLIA [id number] [address] [place] Nucleated RBC (Bld) [#/Vol] 10*3/uL Normal <0.01 [facility] Comment on above: Order Comment: Speci men Type: BLOOD SPECIMENOrdering Facility: [facility] Address: [address] [place] [address] Performed By: #### 5 7021-8 ####[facility]ORATORYCLIA [id number] [address] [place] Nucleated RBC/100 WBC (Bld) [Ratio] 0.0 /100 WBC Normal [facility] Comment on above: Order Comment: Speci men Type: BLOOD SPECIMENOrdering Facility: [facility] Address: [address] [place] [address] Performed By: #### 5 7021-8 ####[facility]ORATORYCLIA [id number] [address] [place] Platelet mean volume (Bld) [Entitic vol] 9.2 fL Normal 9.0-12.7 [facility] Comment on above: Order Comment: Speci men Type: BLOOD SPECIMENOrdering Facility: [facility] Address: [address] [place] [address] Performed By: #### 5 7021-8 ####[facility]ORATORYCLIA [id number] [address] [place] Platelets (Bld) [#/Vol] 379 10*3/uL Normal 150-400 [facility] Comment on above: Order Comment: Speci men Type: BLOOD SPECIMENOrdering Facility: [facility] Address: [address] [place] [address] Performed By: #### 5 7021-8 ####[facility]ORATORYCLIA [id number] [address] [place] RBC (Bld) [#/Vol] 3.32 10*6/uL Low 4.20-6.00 [facility] Comment on above: Order Comment: Speci men Type: BLOOD SPECIMENOrdering Facility: [facility] Address: [address] [place] [address] Performed By: #### 5 7021-8 ####[facility]ORATORYCLIA [id number] [address] [place] WBC (Bld) [#/Vol] 8.33 10*3/uL Normal 3.70-11.00 [facility] Comment on above: Order Comment: Speci men Type: BLOOD SPECIMENOrdering Facility: [facility] Address: [address] [place] [address] Performed By: #### 5 7021-8 ####[facility]ORATORYCLIA [id number] [place] [address] [place] CONSULT PROGon 08-17-2021 CONSULT PROG Normal [facility] NUTRITIONon 08-17-2021 NUTRITION Normal [facility] Basic metabolic 2000 panelon 08-16-2021 Anion gap [Moles/Vol] 14 mmol/L Normal 9-18 [facility] Comment on above: Order Comment: Speci men Type: BLOOD SPECIMENOrdering Facility: [facility] Address: [address] [place] [address] Performed By: #### 2 4321-2, ####[facility]ORATORYCLIA [id number] [place] [address] [place] Calcium [Mass/Vol] 8.8 mg/dL Normal 8.5-10.2 [facility] Comment on above: Order Comment: Speci men Type: BLOOD SPECIMENOrdering Facility: [facility] Address: [address] [place] [address] Performed By: #### 2 4321-2, ####[facility]ORATORYCLIA [id number] [place] [address] [place] Chloride [Moles/Vol] 97 mmol/L Normal 97-105 [facility] Comment on above: Order Comment: Speci men Type: BLOOD SPECIMENOrdering Facility: [facility] Address: [address] [place] [address] Performed By: #### 2 4321-2, ####[facility]ORATORYCLIA [id number] [place] [address] [place] CO2 [Moles/Vol] 27 mmol/L Normal 22-30 [facility] Comment on above: Order Comment: Speci men Type: BLOOD SPECIMENOrdering Facility: [facility] Address: [address] Performed By: #### 2 4321-2, ####[facility]OSPITALIA [id number] [place] [id number] [place] Creatinine [Mass/Vol] 0.50 mg/dL Low 0.73-1.22 [facility] Comment on above: Order Comment: Speci men Type: BLOOD SPECIMENOrdering Facility: [facility] Address: [address] [place] [address] Performed By: #### 2 4321-2, ####[facility] HOSPITALIA [id number] [place] [id number] [facility] ESTIMATED GLOMERULAR FILTRATION RATE 110 mL/min/1.73m??? Normal >=60 [facility] Comment on above: Order Comment: Speccara men Type: BLOOD SPECIMENOrdering Facility: [facility] Address: [address] [place] [address] Result Comment: Luzmaria mated Glomerular Filtration Rate [...] actual GFR. Performed By: #### 2 4321-2, ####[facility] LABORATORYIA [id number] [place] [id number] [place] Glucose [Mass/Vol] 101 mg/dL High 74-99 [facility] Comment on above: Order Comment: Speci men Type: BLOOD SPECIMENOrdering Facility: [facility] Address: [address] [place] [address] Result Comment: The [place] [employer] (ADA) provides guidance for cutoff [...] Standards of Medical Care in Diabetes 2016, [place] [employer]. Diabetes Care. 2016.39(Suppl 1). Performed By: #### 2 4320-06, ####[facility]ORATORYCLIA [id number] [place] [address] [place] Potassium [Moles/Vol] 3.6 mmol/L Low 3.7-5.1 [facility] Comment on above: Order Comment: Shira feldman Type: BLOOD SPECIMENOrdering Facility: [facility] Address: [address] [place] [address] Performed By: #### 2 4320-06, ####[facility]CL[facility] [id number] [address] STATES OF [facility] Sodium [Moles/Vol] 138 mmol/L Normal 136-144 [facility] Comment on above: Order Comment: Shira feldman Type: BLOOD SPECIMENOrdering Facility: [facility] Address: [address] [place] [address] Performed By: #### 2 4320-06, ####[facility]ORATORYCLIA [id number] [place] [address] [place] Urea nitrogen [Mass/Vol] 11 mg/dL Normal 9-24 [facility] Comment on above: Order Comment: Shira feldman Type: BLOOD SPECIMENOrdering Facility: [facility] Address: [address] [place] [address] Performed By: #### 2 4320-06, ####[facility]ORATORYCLIA [id number] [place] [address] [place] CASE MANAGEMon 08-16-2021 CASE MANAGEM Normal [facility] CBC W Auto Differential pane l (Bld)on 08-16-2021 Basophils (Bld) [#/Vol] 0.03 10*3/uL Normal <0.11 [facility] Comment on above: Order Comment: Speci men Type: BLOOD SPECIMENOrdering Facility: [facility] Address: [address] [place] [address] Performed By: #### 5 7021-8 ####[facility]ORATORYCLIA [id number] [address] [place] Basophils/100 WBC (Bld) 0.4 % Normal [facility] Comment on above: Order Comment: Speci men Type: BLOOD SPECIMENOrdering Facility: [facility] Address: [address] [place] [address] Performed By: #### 5 7021-8 ####[facility]ORATORYCLIA [id number] [address] [place] Differential cell count method Nom (Bld) Auto Normal [facility] Comment on above: Order Comment: Speci men Type: BLOOD SPECIMENOrdering Facility: [facility] Address: [address] [place] [address] Performed By: #### 5 7021-8 ####[facility]ORATORYCLIA [id number] [address] [place] Eosinophils (Bld) [#/Vol] 0.19 10*3/uL Normal <0.46 [facility] Comment on above: Order Comment: Speci men Type: BLOOD SPECIMENOrdering Facility: [facility] Address: [address] [place] [address] Performed By: #### 5 7021-8 ####[facility]ORATORYCLIA [id number] [address] [place] Eosinophils/100 WBC (Bld) 2.5 % Normal [facility] Comment on above: Order Comment: Speci men Type: BLOOD SPECIMENOrdering Facility: [facility] Address: [address] [place] [address] Performed By: #### 5 7021-8 ####[facility]ORATORYCLIA [id number] [address] Erythrocyte distribution width (RBC) [Ratio] 17.1 % High 11.5-15.0 [facility] Comment on above: Order Comment: Speci men Type: BLOOD SPECIMENOrdering Facility: [facility] Address: [address] [place] [address] Performed By: #### 5 7021-8 ####[facility]ORATORYCLIA [id number] [address] Hematocrit (Bld) [Volume fraction] 29.2 % Low 39.0-51.0 [facility] Comment on above: Order Comment: Speci men Type: BLOOD SPECIMENOrdering Facility: [facility] Address: [address] [place] [address] Performed By: #### 5 7021-8 ####[facility]ORATORYCLIA [id number] [address] Hemoglobin (Bld) [Mass/Vol] 9.0 g/dL Low 13.0-17.0 [facility] Comment on above: Order Comment: Speci men Type: BLOOD SPECIMENOrdering Facility: [facility] Address: [address] [place] [address] Performed By: #### 5 7021-8 ####[facility] LABORATORYCLIA [id number] [address] IMMATURE GRAN % 0.3 % Normal [facility] Comment on above: Order Comment: Speci men Type: BLOOD SPECIMENOrdering Facility: [facility] Address: [address] [place] [address] Performed By: #### 5 7021-8 ####[facility] LABORATORYCLIA [id number] [address] IMMATURE GRAN ABS <0.03 Normal <0.10 [facility] Comment on above: Order Comment: Speci men Type: BLOOD SPECIMENOrdering Facility: [facility] Address: [address] [place] [address] Performed By: #### 5 7021-8 ####[facility] LABORATORYCLIA [id number] [address] STATES OF [facility] Lymphocytes (Bld) [#/Vol] 1.41 10*3/uL Normal 1.00-4.00 [facility] Comment on above: Order Comment: Speci men Type: BLOOD SPECIMENOrdering Facility: [facility] Address: [address] [place] [address] Performed By: #### 5 7021-8 ####[facility]ORATORYCLIA [id number] [address] Lymphocytes/100 WBC (Bld) 18.4 % Normal [facility] Comment on above: Order Comment: Speci men Type: BLOOD SPECIMENOrdering Facility: [facility] Address: [address] [place] [address] Performed By: #### 5 7021-8 ####[facility]ORATORYCLIA [id number] [address] STATES OF [facility] MCH (RBC) [Entitic mass] 28.0 pg Normal 26.0-34.0 [facility] Comment on above: Order Comment: Speci men Type: BLOOD SPECIMENOrdering Facility: [facility] Address: [address] [place] [address] Performed By: #### 5 7021-8 ####[facility]ORATORYCLIA [id number] [address] [place] MCHC (RBC) [Mass/Vol] 30.8 g/dL Normal 30.5-36.0 [facility] Comment on above: Order Comment: Speci men Type: BLOOD SPECIMENOrdering Facility: [facility] Address: [address] [place] [address] Performed By: #### 5 7021-8 ####[facility]ORATORYCLIA [id number] [address] [place] MCV (RBC) [Entitic vol] 91.0 fL Normal 80.0-100.0 [facility] Comment on above: Order Comment: Speci men Type: BLOOD SPECIMENOrdering Facility: [facility] Address: [address] [place] [address] Performed By: #### 5 7021-8 ####[facility]ATORYCLIA [id number] [address] [place] Monocytes (Bld) [#/Vol] 0.47 10*3/uL Normal <0.87 [facility] Comment on above: Order Comment: Speci men Type: BLOOD SPECIMENOrdering Facility: [facility] Address: [address] [place] [address] Performed By: #### 5 7021-8 ####[facility]ORATORYCLIA [id number] [address] [place] Monocytes/100 WBC (Bld) 6.1 % Normal [facility] Comment on above: Order Comment: Speci men Type: BLOOD SPECIMENOrdering Facility: [facility] Address: [address] [place] [address] Performed By: #### 5 7021-8 ####[facility]ATORYCLIA [id number] [address] [place] Neutrophils (Bld) [#/Vol] 5.55 10*3/uL Normal 1.45-7.50 [facility] Comment on above: Order Comment: Speci men Type: BLOOD SPECIMENOrdering Facility: [facility] Address: [address] [place] [address] Performed By: #### 5 7021-8 ####[facility]ATORYCLIA [id number] [address] [place] Neutrophils/100 WBC (Bld) 72.3 % Normal [facility] Comment on above: Order Comment: Speci men Type: BLOOD SPECIMENOrdering Facility: [facility] Address: [address] [place] [address] Performed By: #### 5 7021-8 ####[facility]ORATORYCLIA [id number] [address] Nucleated RBC (Bld) [#/Vol] 10*3/uL Normal <0.01 [facility] Comment on above: Order Comment: Speci men Type: BLOOD SPECIMENOrdering Facility: [facility] Address: [address] [place] [address] Performed By: #### 5 7021-8 ####[facility]ATORYCLIA [id number] [address] [place] Nucleated RBC/100 WBC (Bld) [Ratio] 0.0 /100 WBC Normal [facility] Comment on above: Order Comment: Speci men Type: BLOOD SPECIMENOrdering Facility: [facility] Address: [address] [place] [address] Performed By: #### 5 7021-8 ####[facility]ORATORYCLIA [id number] [address] [place] Platelet mean volume (Bld) [Entitic vol] 9.3 fL Normal 9.0-12.7 [facility] Comment on above: Order Comment: Speci men Type: BLOOD SPECIMENOrdering Facility: [facility] Address: [address] [place] [address] Performed By: #### 5 7021-8 ####[facility]ORATORYCLIA [id number] [address] [place] Platelets (Bld) [#/Vol] 319 10*3/uL Normal 150-400 [facility] Comment on above: Order Comment: Speci men Type: BLOOD SPECIMENOrdering Facility: [facility] Address: [address] [place] [address] Performed By: #### 5 7021-8 ####[facility]ORATORYCLIA [id number] [address] [place] RBC (Bld) [#/Vol] 3.21 10*6/uL Low 4.20-6.00 [facility] Comment on above: Order Comment: Speci men Type: BLOOD SPECIMENOrdering Facility: [facility] Address: [address] [place] [address] Performed By: #### 5 7021-8 ####[facility]ATORYCLIA [id number] [address] [place] WBC (Bld) [#/Vol] 7.67 10*3/uL Normal 3.70-11.00 [facility] Comment on above: Order Comment: Speci men Type: BLOOD SPECIMENOrdering Facility: [facility] Address: [address] [place] [address] Performed By: #### 5 7021-8 ####[facility]ORATORYCLIA [id number] [address] [place] Basophils (Bld) [#/Vol] 0.04 10*3/uL Normal <0.11 [facility] Comment on above: Order Comment: Speci men Type: BLOOD SPECIMENOrdering Facility: [facility] Address: [address] [place] [address] Performed By: #### 5 7021-8 ####[facility]ORATORYCLIA [id number] [address] [place] Basophils/100 WBC (Bld) 0.5 % Normal [facility] Comment on above: Order Comment: Speci men Type: BLOOD SPECIMENOrdering Facility: [facility] Address: [address] [place] [address] Performed By: #### 5 7021-8 ####[facility]ORATORYCLIA [id number] [address] Differential cell count method Nom (Bld) Auto Normal [facility] Comment on above: Order Comment: Speci men Type: BLOOD SPECIMENOrdering Facility: [facility] Address: [address] [place] [address] Performed By: #### 5 7021-8 ####[facility]ATORYCLIA [id number] [place] [address] [place] Eosinophils (Bld) [#/Vol] 0.19 10*3/uL Normal <0.46 [facility] Comment on above: Order Comment: Speci men Type: BLOOD SPECIMENOrdering Facility: [facility] Address: [address] [place] [address] Performed By: #### 5 7021-8 ####[facility]ORATORYCLIA [id number] [address] [place] Eosinophils/100 WBC (Bld) 2.5 % Normal [facility] Comment on above: Order Comment: Speci men Type: BLOOD SPECIMENOrdering Facility: [facility] Address: [address] [place] [address] Performed By: #### 5 7021-8 ####[facility]ATORYCLIA [id number] [address] [place] Erythrocyte distribution width (RBC) [Ratio] 17.2 % High 11.5-15.0 [facility] Comment on above: Order Comment: Speci men Type: BLOOD SPECIMENOrdering Facility: [facility] Address: [address] [place] [address] Performed By: #### 5 7021-8 ####[facility]ORATORYCLIA [id number] [address] [place] Hematocrit (Bld) [Volume fraction] 29.5 % Low 39.0-51.0 [facility] Comment on above: Order Comment: Speci men Type: BLOOD SPECIMENOrdering Facility: [facility] Address: [address] [place] [address] Performed By: #### 5 7021-8 ####[facility]ORATORYCLIA [id number] [address] [place] Hemoglobin (Bld) [Mass/Vol] 9.2 g/dL Low 13.0-17.0 [facility] Comment on above: Order Comment: Speci men Type: BLOOD SPECIMENOrdering Facility: [facility] Address: [address] [place] [address] Performed By: #### 5 7021-8 ####[facility]ORATORYCLIA [id number] [address] IMMATURE GRAN % 0.4 % Normal [facility] Comment on above: Order Comment: Speci men Type: BLOOD SPECIMENOrdering Facility: [facility] Address: [address] [place] [address] Performed By: #### 5 7021-8 ####[facility]ATORYCLIA [id number] [address] IMMATURE GRAN ABS 0.03 k/uL Normal <0.10 [facility] Comment on above: Order Comment: Speci men Type: BLOOD SPECIMENOrdering Facility: [facility] Address: [address] [place] [address] Performed By: #### 5 7021-8 ####[facility]ATORYCLIA [id number] [address] Lymphocytes (Bld) [#/Vol] 1.50 10*3/uL Normal 1.00-4.00 [facility] Comment on above: Order Comment: Speci men Type: BLOOD SPECIMENOrdering Facility: [facility] Address: [address] [place] [address] Performed By: #### 5 7021-8 ####[facility]ATORYCLIA [id number] [address] Lymphocytes/100 WBC (Bld) 19.7 % Normal [facility] Comment on above: Order Comment: Speci men Type: BLOOD SPECIMENOrdering Facility: [facility] Address: [address] [place] [address] Performed By: #### 5 7021-8 ####[facility] LABORATORYCLIA [id number] [address] [facility] MCH (RBC) [Entitic mass] 28.3 pg Normal 26.0-34.0 [facility] Comment on above: Order Comment: Speci men Type: BLOOD SPECIMENOrdering Facility: [facility] Address: [address] [place] [address] Performed By: #### 5 7021-8 ####[facility] [facility] LABORATORYCLIA [id number] [address] [place] MCHC (RBC) [Mass/Vol] 31.2 g/dL Normal 30.5-36.0 [facility] Comment on above: Order Comment: Speci men Type: BLOOD SPECIMENOrdering Facility: [facility] Address: [address] [place] [address] Performed By: #### 5 7021-8 ####[facility] LABORATORYCLIA [id number] [address] MCV (RBC) [Entitic vol] 90.8 fL Normal 80.0-100.0 [facility] Comment on above: Order Comment: Speci men Type: BLOOD SPECIMENOrdering Facility: [facility] Address: [address] [place] [address] Performed By: #### 5 7021-8 ####[facility] LABORATORYCLIA [id number] [address] STATES [facility] Monocytes (Bld) [#/Vol] 0.49 10*3/uL Normal <0.87 [facility] Comment on above: Order Comment: Speci men Type: BLOOD SPECIMENOrdering Facility: [facility] Address: [address] [place] [address] Performed By: #### 5 7021-8 ####[facility] LABORATORYCLIA [id number] [address] Monocytes/100 WBC (Bld) 6.4 % Normal [facility] Comment on above: Order Comment: Speci men Type: BLOOD SPECIMENOrdering Facility: [facility] Address: [address] [place] [address] Performed By: #### 5 7021-8 ####[facility] LABORATORYCLIA [id number] [address] [place] Neutrophils (Bld) [#/Vol] 5.38 10*3/uL Normal 1.45-7.50 [facility] Comment on above: Order Comment: Speci men Type: BLOOD SPECIMENOrdering Facility: [facility] Address: [address] [place] [address] Performed By: #### 5 7021-8 ####[facility] LABORATORYCLIA [id number] [address] Neutrophils/100 WBC (Bld) 70.5 % Normal [facility] Comment on above: Order Comment: Speci men Type: BLOOD SPECIMENOrdering Facility: [facility] Address: [address] [place] [address] Performed By: #### 5 7021-8 ####[facility] LABORATORYCLIA [id number] [address] Nucleated RBC (Bld) [#/Vol] 10*3/uL Normal <0.01 [facility] Comment on above: Order Comment: Speci men Type: BLOOD SPECIMENOrdering Facility: [facility] Address: [address] [place] [address] Performed By: #### 5 7021-8 ####[facility] LABORATORYCLIA [id number] [address] Nucleated RBC/100 WBC (Bld) [Ratio] 0.0 /100 WBC Normal [facility] Comment on above: Order Comment: Speci men Type: BLOOD SPECIMENOrdering Facility: [facility] Address: [address] [place] [address] Performed By: #### 5 7021-8 ####[facility] LABORATORYCLIA [id number] [address] [place] Platelet mean volume (Bld) [Entitic vol] 9.0 fL Normal 9.0-12.7 [facility] Comment on above: Order Comment: Speci men Type: BLOOD SPECIMENOrdering Facility: [facility] Address: [address] [place] [address] Performed By: #### 5 7021-8 ####[facility] LABORATORYCLIA [id number] [address] [place] Platelets (Bld) [#/Vol] 316 10*3/uL Normal 150-400 [facility] Comment on above: Order Comment: Speci men Type: BLOOD SPECIMENOrdering Facility: [facility] Address: [address] [place] [address] Performed By: #### 5 7021-8 ####[facility] LABORATORYCLIA [id number] [place] [address] [place] RBC (Bld) [#/Vol] 3.25 10*6/uL Low 4.20-6.00 [facility] Comment on above: Order Comment: Speci men Type: BLOOD SPECIMENOrdering Facility: [facility] Address: [address] [place] [address] Performed By: #### 5 7021-8 ####[facility] LABORATORYCLIA [id number] [place] [address] [place] WBC (Bld) [#/Vol] 7.63 10*3/uL Normal 3.70-11.00 [facility] Comment on above: Order Comment: Speci men Type: BLOOD SPECIMENOrdering Facility: [facility] Address: [address] [place] [address] Performed By: #### 5 7021-8 ####[facility] LABORATORYCLIA [id number] [place] [address] [place] Basophils (Bld) [#/Vol] Normal <0.11 [facility] Comment on above: Order Comment: Speci men Type: BLOOD SPECIMENOrdering Facility: [facility] Address: [address] [place] [address] Result Comment: Carolina Owens RN informed lab after results autoverified that she rd on the wrong patient. Lab to credit. Nurse to redraw on correct patient.Corrected result: Previously reported as 0.04 k/uL on 08/16/2021 at 4:44 AM EDT. Performed By: #### 5 7021-8 ####[facility]ORATORYCLIA [id number] [place] [address] [place] Basophils/100 WBC (Bld) Normal [facility] Comment on above: Order Comment: Speci men Type: BLOOD SPECIMENOrdering Facility: [facility] Address: [address] [place] [address] Result Comment: Tati ected result: Previously reported as 0.4 % on 08/16/2021 at 4:44 AM EDT. Performed By: #### 5 7021-8 ####[facility] LABORATORYCLIA [id number] [place] [address] [place] CBC W Differential panel, method unspecified (Bld) Normal [facility] Comment on above: Order Comment: Speci men Type: BLOOD SPECIMENOrdering Facility: [facility] Address: [address] [place] [address] Result Comment: Carolina Owens RN informed lab after results autoverified that she rd on the wrong patient. Lab to credit. Nurse to redraw on correct patient. Performed By: #### 5 7021-8 ####[facility]ORATORYCLIA [id number] [place] [address] [place] Differential cell count method Nom (Bld) Normal [facility] Comment on above: Order Comment: Speci men Type: BLOOD SPECIMENOrdering Facility: [facility] Address: [address] [place] [address] Result Comment: Carolina Owens RN informed lab after results autoverified that she rd on the wrong patient. Lab to credit. Nurse to redraw on correct patient.Corrected result: Previously reported as Auto on 08/16/2021 at 4:44 AM EDT. Performed By: #### 5 7021-8 ####[facility] LABORATORYCLIA [id number] [place] [address] [place] Eosinophils (Bld) [#/Vol] Normal <0.46 [facility] Comment on above: Order Comment: Speci men Type: BLOOD SPECIMENOrdering Facility: [facility] Address: [address] [place] [address] Result Comment: Carolina Owens RN informed lab after results autoverified that she rd on the wrong patient. Lab to credit. Nurse to redraw on correct patient.Corrected result: Previously reported as 0.07 k/uL on 08/16/2021 at 4:44 AM EDT. Performed By: #### 5 7021-8 ####[facility] LABORATORYCLIA [id number] [address] STATES OF [facility] Eosinophils/100 WBC (Bld) Normal [facility] Comment on above: Order Comment: Speci men Type: BLOOD SPECIMENOrdering Facility: [facility] Address: [address] [place] [address] Result Comment: Carolina Owens RN informed lab after results autoverified that she rd on the wrong patient. Lab to credit. Nurse to redraw on correct patient.Corrected result: Previously reported as 0.7 % on 08/16/2021 at 4:44 AM EDT. Performed By: #### 5 7021-8 ####[facility] LABORATORYCLIA [id number] [address] Erythrocyte distribution width (RBC) [Ratio] Normal 11.5-15.0 [facility] Comment on above: Order Comment: Speci men Type: BLOOD SPECIMENOrdering Facility: [facility] Address: [address] [place] [address] Result Comment: Carolina Owens RN informed lab after results autoverified that she rd on the wrong patient. Lab to credit. Nurse to redraw on correct patient.Corrected result: Previously reported as 14.2 % on 08/16/2021 at 4:44 AM EDT. Performed By: #### 5 7021-8 ####[facility] LABORATORYCLIA [id number] [address] OF [facility] Hematocrit (Bld) [Volume fraction] Normal 39.0-51.0 [facility] Comment on above: Order Comment: Speci men Type: BLOOD SPECIMENOrdering Facility: [facility] Address: [address] [place] [address] Result Comment: Carolina Owens RN informed lab after results autoverified that she rd on the wrong patient. Lab to credit. Nurse to redraw on correct patient.Corrected result: Previously reported as 34.3 % on 08/16/2021 at 4:44 AM EDT. Performed By: #### 5 7021-8 ####[facility] LABORATORYCLIA [id number] [address] Hemoglobin (Bld) [Mass/Vol] Normal 13.0-17.0 [facility] Comment on above: Order Comment: Speci men Type: BLOOD SPECIMENOrdering Facility: [facility] Address: [address] [place] [address] Result Comment: Carolina Owens RN informed lab after results autoverified that she rd on the wrong patient. Lab to credit. Nurse to redraw on correct patient.Corrected result: Previously reported as 11.2 g/dL on 08/16/2021 at 4:44 AM EDT. Performed By: #### 5 7021-8 ####[facility] LABORATORYCLIA [id number] [address] IMMATURE GRAN % Normal [facility] Comment on above: Order Comment: Speci men Type: BLOOD SPECIMENOrdering Facility: [facility] Address: [address] [place] [address] Result Comment: Carolina Owens RN informed lab after results autoverified that she rd on the wrong patient. Lab to credit. Nurse to redraw on correct patient.Corrected result: Previously reported as 0.8 % on 08/16/2021 at 4:44 AM EDT. Performed By: #### 5 7021-8 ####[facility] LABORATORYCLIA [id number] [address] IMMATURE GRAN ABS Normal <0.10 [facility] Comment on above: Order Comment: Speci men Type: BLOOD SPECIMENOrdering Facility: [facility] Address: [address] [place] [address] Result Comment: Tati ected result: Previously reported as 0.08 k/uL on 08/16/2021 at 4:44 AM EDT. Performed By: #### 5 7021-8 ####[facility] LABORATORYCLIA [id number] [address] [place] Lymphocytes (Bld) [#/Vol] Normal 1.00-4.00 [facility] Comment on above: Order Comment: Speci men Type: BLOOD SPECIMENOrdering Facility: [facility] Address: [address] [place] [address] Result Comment: Carolina Owens RN informed lab after results autoverified that she rd on the wrong patient. Lab to credit. Nurse to redraw on correct patient.Corrected result: Previously reported as 1.17 k/uL on 08/16/2021 at 4:44 AM EDT. Performed By: #### 5 7021-8 ####[facility] LABORATORYCLIA [id number] [address] Lymphocytes/100 WBC (Bld) Normal [facility] Comment on above: Order Comment: Speci men Type: BLOOD SPECIMENOrdering Facility: [facility] Address: [address] [place] [address] Result Comment: Carolina Owens RN informed lab after results autoverified that she rd on the wrong patient. Lab to credit. Nurse to redraw on correct patient.Corrected result: Previously reported as 12.0 % on 08/16/2021 at 4:44 AM EDT. Performed By: #### 5 7021-8 ####[facility] LABORATORYCLIA [id number] [address] [place] MCHC (RBC) [Mass/Vol] Normal 30.5-36.0 [facility] Comment on above: Order Comment: Speci men Type: BLOOD SPECIMENOrdering Facility: [facility] Address: [address] [place] [address] Result Comment: Carolina Owens RN informed lab after results autoverified that she rd on the wrong patient. Lab to credit. Nurse to redraw on correct patient.Corrected result: Previously reported as 32.7 g/dL on 08/16/2021 at 4:44 AM EDT. Performed By: #### 5 7021-8 ####[facility] LABORATORYCLIA [id number] [address] [place] MCV (RBC) [Entitic vol] Normal 80.0-100.0 [facility] Comment on above: Order Comment: Speci men Type: BLOOD SPECIMENOrdering Facility: [facility] Address: [address] [place] [address] Result Comment: Carolina Owens RN informed lab after results autoverified that she rd on the wrong patient. Lab to credit. Nurse to redraw on correct patient.Corrected result: Previously reported as 94.2 fL on 08/16/2021 at 4:44 AM EDT. Performed By: #### 5 7021-8 ####[facility]ORATORYCLIA [id number] [address] Monocytes (Bld) [#/Vol] Normal <0.87 [facility] Comment on above: Order Comment: Speci men Type: BLOOD SPECIMENOrdering Facility: [facility] Address: [address] [place] [address] Result Comment: Carolina Owens RN informed lab after results autoverified that she rd on the wrong patient. Lab to credit. Nurse to redraw on correct patient.Corrected result: Previously reported as 0.99 k/uL on 08/16/2021 at 4:44 AM EDT. Performed By: #### 5 7021-8 ####[facility] LABORATORYCLIA [id number] [address] [place] Monocytes/100 WBC (Bld) Normal [facility] Comment on above: Order Comment: Speci [facility] Type: BLOOD SPECIMENOrdering Facility: [facility] Address: [address] [place] [address] Result Comment: Carolina Owens RN informed lab after results autoverified that she rd on the wrong patient. Lab to credit. Nurse to redraw on correct patient.Corrected result: Previously reported as 10.2 % on 08/16/2021 at 4:44 AM EDT. Performed By: #### 5 7021-8 ####[facility]ORATORYCLIA [id number] [address] [place] Neutrophils (Bld) [#/Vol] Normal 1.45-7.50 [facility] Comment on above: Order Comment: Speci men Type: BLOOD SPECIMENOrdering Facility: [facility] Address: [address] [place] [address] Result Comment: Carolina Owens RN informed lab after results autoverified that she rd on the wrong patient. Lab to credit. Nurse to redraw on correct patient.Corrected result: Previously reported as 7.40 k/uL on 08/16/2021 at 4:44 AM EDT. Performed By: #### 5 7021-8 ####[facility] LABORATORYCLIA [id number] [address] Neutrophils/100 WBC (Bld) Normal [facility] Comment on above: Order Comment: Speci [facility] Type: BLOOD SPECIMENOrdering Facility: [facility] Address: [address] [place] [address] Result Comment: Carolina Owens RN informed lab after results autoverified that she rd on the wrong patient. Lab to credit. Nurse to redraw on correct patient.Corrected result: Previously reported as 75.9 % on 08/16/2021 at 4:44 AM EDT. Performed By: #### 5 7021-8 ####[facility] LABORATORYCLIA [id number] [address] [place] Platelet mean volume (Bld) [Entitic vol] Normal 9.0-12.7 [facility] Comment on above: Order Comment: Speci [facility] Type: BLOOD SPECIMENOrdering Facility: [facility] Address: [address] [place] [address] Result Comment: Carolina Owens RN informed lab after results autoverified that she rd on the wrong patient. Lab to credit. Nurse to redraw on correct patient.Corrected result: Previously reported as 9.1 fL on 08/16/2021 at 4:44 AM EDT. Performed By: #### 5 7021-8 ####[facility] LABORATORYCLIA [id number] [address] [place] Platelets (Bld) [#/Vol] Normal 150-400 [facility] Comment on above: Order Comment: Speci men Type: BLOOD SPECIMENOrdering Facility: [facility] Address: [address] [place] [address] Result Comment: Carolina Owens RN informed lab after results autoverified that she rd on the wrong patient. Lab to credit. Nurse to redraw on correct patient.Corrected result: Previously reported as 338 k/uL on 08/16/2021 at 4:44 AM EDT. Performed By: #### 5 7021-8 ####[facility] LABORATORYCLIA [id number] [address] [place] RBC (Bld) [#/Vol] Normal 4.20-6.00 [facility] Comment on above: Order Comment: Speci men Type: BLOOD SPECIMENOrdering Facility: [facility] Address: [address] [place] [address] Result Comment: Carolina Owens RN informed lab after results autoverified that she rd on the wrong patient. Lab to credit. Nurse to redraw on correct patient.Corrected result: Previously reported as 3.64 m/uL on 08/16/2021 at 4:44 AM EDT. Performed By: #### 5 7021-8 ####[facility] LABORATORYCLIA [id number] [address] [place] WBC (Bld) [#/Vol] Normal 3.70-11.00 [facility] Comment on above: Order Comment: Speci men Type: BLOOD SPECIMENOrdering Facility: [facility] Address: [address] [place] [address] Result Comment: Carolina Owens RN informed lab after results autoverified that she rd on the wrong patient. Lab to credit. Nurse to redraw on correct patient.Corrected result: Previously reported as 9.75 k/uL on 08/16/2021 at 4:44 AM EDT. Performed By: #### 5 7021-8 ####[facility] LABORATORYCLIA [id number] [address] [place] CONSULT PROGon 08-16-2021 CONSULT PROG Normal [facility] Magnesium SerPl-mCncon 08-16 Magnesium [Mass/Vol] 1.8 mg/dL Normal 1.7-2.3 [facility] Comment on above: Order Comment: Speci men Type: BLOOD SPECIMENOrdering Facility: [facility] Address: [address] [place] [address] Performed By: #### 2 4321-2, 76884-8 ####[facility] LABORATORYCLIA [id number] [address] OF [facility] NURSING PROGon 08-16-2021 NURSING PROG Normal [facility] Basic metabolic 2000 panelon 08-15-2021 Anion gap [Moles/Vol] 13 mmol/L Normal 9-18 [facility] Comment on above: Order Comment: Speci men Type: BLOOD SPECIMENOrdering Facility: [facility] Address: [address] [place] [address] Performed By: #### 2 4321-2 ####[facility] LABORATORYCLIA [id number] [address] [place] Calcium [Mass/Vol] 9.0 mg/dL Normal 8.5-10.2 [facility] Comment on above: Order Comment: Speci men Type: BLOOD SPECIMENOrdering Facility: [facility] Address: [address] [place] [address] Performed By: #### 2 4321-2 ####[facility] LABORATORYCLIA [id number] [address] [place] Chloride [Moles/Vol] 95 mmol/L Low 97-105 [facility] Comment on above: Order Comment: Speci men Type: BLOOD SPECIMENOrdering Facility: [facility] Address: [address] [place] [address] Performed By: #### 2 4321-2 ####[facility] LABORATORYCLIA [id number] [address] [place] CO2 [Moles/Vol] 28 mmol/L Normal 22-30 [facility] Comment on above: Order Comment: Speci men Type: BLOOD SPECIMENOrdering Facility: [facility] Address: [address] [place] [address] Performed By: #### 2 4321-2 ####[facility] LABORATORYCLIA [id number] [address] [place] Creatinine [Mass/Vol] 0.50 mg/dL Low 0.73-1.22 [facility] Comment on above: Order Comment: Speci men Type: BLOOD SPECIMENOrdering Facility: [facility] Address: [address] [place] [address] Performed By: #### 2 4321-2 ####[facility] LABORATORYCLIA [id number] [address] ESTIMATED GLOMERULAR FILTRATION RATE 110 mL/min/1.73m??? Normal >=60 [facility] Comment on above: Order Comment: Speci men Type: BLOOD SPECIMENOrdering Facility: [facility] Address: [address] [place] [address] Result Comment: Luzmaria mated Glomerular Filtration Rate [...] actual GFR. Performed By: #### 2 4321-2 ####[facility]ORATORYCLIA [id number] [address] [place] Glucose [Mass/Vol] 106 mg/dL High 74-99 [facility] Comment on above: Order Comment: Speci men Type: BLOOD SPECIMENOrdering Facility: [facility] Address: [address] [place] [address] Result Comment: The [place] [employer] (ADA) provides guidance for cutoff [...] Standards of Medical Care in Diabetes 2016, [place] [employer]. Diabetes Care. 2016.39(Suppl 1). Performed By: #### 2 4321-2 ####[facility]ORATORYCLIA [id number] [address] STATES OF [facility] Potassium [Moles/Vol] 3.3 mmol/L Low 3.7-5.1 [facility] Comment on above: Order Comment: Speci francia Type: BLOOD SPECIMENOrdering Facility: [facility] Address: [address] [place] [address] Performed By: #### 2 1-2 ####[facility] LABORATORYCLIA [id number] [address] [place] Sodium [Moles/Vol] 136 mmol/L Normal 136-144 [facility] Comment on above: Order Comment: Shira feldman Type: BLOOD SPECIMENOrdering Facility: [facility] Address: [address] [place] [address] Performed By: #### 2 1-2 ####[facility]ORATORYCLIA [id number] [address] [place] Urea nitrogen [Mass/Vol] 11 mg/dL Normal 9-24 [facility] Comment on above: Order Comment: Shira feldman Type: BLOOD SPECIMENOrdering Facility: [facility] Address: [address] [place] [address] Performed By: #### 2 1-2 ####[facility]ORATORYCLIA [id number] [place] [address] [place] CASE MANAGEMon 08-15-2021 CASE MANAGEM Normal [facility] CBC W Auto Differential pane l (Bld)on 08-15-2021 Basophils (Bld) [#/Vol] 0.03 10*3/uL Normal <0.11 [facility] Comment on above: Order Comment: Speci men Type: BLOOD SPECIMENOrdering Facility: [facility] Address: [address] [place] [address] Performed By: #### 5 7021-8 ####[facility]ORATORYCLIA [id number] [address] [place] Basophils/100 WBC (Bld) 0.4 % Normal [facility] Comment on above: Order Comment: Speci men Type: BLOOD SPECIMENOrdering Facility: [facility] Address: [address] [place] [address] Performed By: #### 5 7021-8 ####[facility]ORATORYCLIA [id number] [address] Differential cell count method Nom (Bld) Auto Normal [facility] Comment on above: Order Comment: Speci men Type: BLOOD SPECIMENOrdering Facility: [facility] Address: [address] [place] [address] Performed By: #### 5 7021-8 ####[facility]ATORYCLIA [id number] [address] [place] Eosinophils (Bld) [#/Vol] 0.20 10*3/uL Normal <0.46 [facility] Comment on above: Order Comment: Speci men Type: BLOOD SPECIMENOrdering Facility: [facility] Address: [address] [place] [address] Performed By: #### 5 7021-8 ####[facility] LABORATORYCLIA [id number] [address] Eosinophils/100 WBC (Bld) 2.5 % Normal [facility] Comment on above: Order Comment: Speci men Type: BLOOD SPECIMENOrdering Facility: [facility] Address: [address] [place] [address] Performed By: #### 5 7021-8 ####[facility] LABORATORYCLIA [id number] [address] Erythrocyte distribution width (RBC) [Ratio] 16.7 % High 11.5-15.0 [facility] Comment on above: Order Comment: Speci men Type: BLOOD SPECIMENOrdering Facility: [facility] Address: [address] [place] [address] Performed By: #### 5 7021-8 ####[facility] LABORATORYCLIA [id number] [address] Hematocrit (Bld) [Volume fraction] 30.3 % Low 39.0-51.0 [facility] Comment on above: Order Comment: Speci men Type: BLOOD SPECIMENOrdering Facility: [facility] Address: [address] [place] [address] Performed By: #### 5 7021-8 ####[facility] LABORATORYCLIA [id number] [address] Hemoglobin (Bld) [Mass/Vol] 9.4 g/dL Low 13.0-17.0 [facility] Comment on above: Order Comment: Speci men Type: BLOOD SPECIMENOrdering Facility: [facility] Address: [address] [place] [address] Performed By: #### 5 7021-8 ####[facility] LABORATORYCLIA [id number] [address] IMMATURE GRAN % 0.4 % Normal [facility] Comment on above: Order Comment: Speci men Type: BLOOD SPECIMENOrdering Facility: [facility] Address: [address] [place] [address] Performed By: #### 5 7021-8 ####[facility] LABORATORYCLIA [id number] [address] IMMATURE GRAN ABS 0.03 k/uL Normal <0.10 [facility] Comment on above: Order Comment: Speci men Type: BLOOD SPECIMENOrdering Facility: [facility] Address: [address] [place] [address] Performed By: #### 5 7021-8 ####[facility] LABORATORYCLIA [id number] [address] [place] Lymphocytes (Bld) [#/Vol] 1.50 10*3/uL Normal 1.00-4.00 [facility] Comment on above: Order Comment: Speci men Type: BLOOD SPECIMENOrdering Facility: [facility] Address: [address] [place] [address] Performed By: #### 5 7021-8 ####[facility] LABORATORYCLIA [id number] [address] Lymphocytes/100 WBC (Bld) 18.5 % Normal [facility] Comment on above: Order Comment: Speci men Type: BLOOD SPECIMENOrdering Facility: [facility] Address: [address] [place] [address] Performed By: #### 5 7021-8 ####[facility] LABORATORYCLIA [id number] [address] [place] MCH (RBC) [Entitic mass] 29.0 pg Normal 26.0-34.0 [facility] Comment on above: Order Comment: Speci men Type: BLOOD SPECIMENOrdering Facility: [facility] Address: [address] [place] [address] Performed By: #### 5 7021-8 ####[facility] LABORATORYCLIA [id number] [address] [place] MCHC (RBC) [Mass/Vol] 31.0 g/dL Normal 30.5-36.0 [facility] Comment on above: Order Comment: Speci men Type: BLOOD SPECIMENOrdering Facility: [facility] Address: [address] [place] [address] Performed By: #### 5 7021-8 ####[facility] LABORATORYCLIA [id number] [address] MCV (RBC) [Entitic vol] 93.5 fL Normal 80.0-100.0 [facility] Comment on above: Order Comment: Speci men Type: BLOOD SPECIMENOrdering Facility: [facility] Address: [address] [place] [address] Performed By: #### 5 7021-8 ####[facility] LABORATORYCLIA [id number] [place] [address] [place] Monocytes (Bld) [#/Vol] 0.47 10*3/uL Normal <0.87 [facility] Comment on above: Order Comment: Speci men Type: BLOOD SPECIMENOrdering Facility: [facility] Address: [address] [place] [address] Performed By: #### 5 7021-8 ####[facility] LABORATORYCLIA [id number] [address] [place] Monocytes/100 WBC (Bld) 5.8 % Normal [facility] Comment on above: Order Comment: Speci men Type: BLOOD SPECIMENOrdering Facility: [facility] Address: [address] [place] [address] Performed By: #### 5 7021-8 ####[facility]ORATORYCLIA [id number] [address] [place] Neutrophils (Bld) [#/Vol] 5.87 10*3/uL Normal 1.45-7.50 [facility] Comment on above: Order Comment: Speci men Type: BLOOD SPECIMENOrdering Facility: [facility] Address: [address] [place] [address] Performed By: #### 5 7021-8 ####[facility]ORATORYCLIA [id number] [address] [place] Neutrophils/100 WBC (Bld) 72.4 % Normal [facility] Comment on above: Order Comment: Speci men Type: BLOOD SPECIMENOrdering Facility: [facility] Address: [address] [place] [address] Performed By: #### 5 7021-8 ####[facility]ORATORYCLIA [id number] [address] [place] Nucleated RBC (Bld) [#/Vol] 10*3/uL Normal <0.01 [facility] Comment on above: Order Comment: Speci men Type: BLOOD SPECIMENOrdering Facility: [facility] Address: [address] [place] [address] Performed By: #### 5 7021-8 ####[facility] LABORATORYCLIA [id number] [address] [place] Nucleated RBC/100 WBC (Bld) [Ratio] 0.0 /100 WBC Normal [facility] Comment on above: Order Comment: Speci men Type: BLOOD SPECIMENOrdering Facility: [facility] Address: [address] [place] [address] Performed By: #### 5 7021-8 ####[facility] LABORATORYCLIA [id number] [address] [place] Platelet mean volume (Bld) [Entitic vol] 9.4 fL Normal 9.0-12.7 [facility] Comment on above: Order Comment: Speci men Type: BLOOD SPECIMENOrdering Facility: [facility] Address: [address] [place] [address] Performed By: #### 5 7021-8 ####[facility] LABORATORYCLIA [id number] [address] [place] Platelets (Bld) [#/Vol] 290 10*3/uL Normal 150-400 [facility] Comment on above: Order Comment: Speci men Type: BLOOD SPECIMENOrdering Facility: [facility] Address: [address] [place] [address] Performed By: #### 5 7021-8 ####[facility] LABORATORYCLIA [id number] [address] [place] RBC (Bld) [#/Vol] 3.24 10*6/uL Low 4.20-6.00 [facility] Comment on above: Order Comment: Speci men Type: BLOOD SPECIMENOrdering Facility: [facility] Address: [address] [place] [address] Performed By: #### 5 7021-8 ####[facility] LABORATORYCLIA [id number] [address] [place] WBC (Bld) [#/Vol] 8.10 10*3/uL Normal 3.70-11.00 [facility] Comment on above: Order Comment: Speci men Type: BLOOD SPECIMENOrdering Facility: [facility] Address: [address] [place] [address] Performed By: #### 5 7021-8 ####[facility] LABORATORYCLIA [id number] [address] OF [facility] THERAPY NTon 08-15-2021 THERAPY NT Normal [facility] THERAPY NT Normal [facility] THERAPY NT Normal [facility] Basic metabolic 2000 panelon 08-14-2021 Anion gap [Moles/Vol] 10 mmol/L Normal 9-18 [facility] Comment on above: Order Comment: Speci men Type: BLOOD SPECIMENOrdering Facility: [facility] Address: [address] [place] [address] Performed By: #### 2 4321-2 ####[facility] LABORATORYCLIA [id number] [address] STATES OF [facility] Calcium [Mass/Vol] 8.8 mg/dL Normal 8.5-10.2 [facility] Comment on above: Order Comment: Speci men Type: BLOOD SPECIMENOrdering Facility: [facility] Address: [address] [place] [address] Performed By: #### 2 4321-2 ####[facility] LABORATORYCLIA [id number] [address] [place] Chloride [Moles/Vol] 92 mmol/L Low 97-105 [facility] Comment on above: Order Comment: Speci men Type: BLOOD SPECIMENOrdering Facility: [facility] Address: [address] [place] [address] Performed By: #### 2 4321-2 ####[facility] LABORATORYCLIA [id number] [address] STATES [facility] CO2 [Moles/Vol] 29 mmol/L Normal 22-30 [facility] Comment on above: Order Comment: Speci men Type: BLOOD SPECIMENOrdering Facility: [facility] Address: [address] [place] [address] Performed By: #### 2 4321-2 ####[facility] [id number] [address] STATES OF [facility] Creatinine [Mass/Vol] 0.49 mg/dL Low 0.73-1.22 [facility] Comment on above: Order Comment: Speci men Type: BLOOD SPECIMENOrdering Facility: [facility] Address: [address] [place] [address] Performed By: #### 2 4321-2 ####[facility]ITALCLIA [id number] [address] ESTIMATED GLOMERULAR FILTRATION RATE 111 mL/min/1.73m??? Normal >=60 [facility] Comment on above: Order Comment: Speci men Type: BLOOD SPECIMENOrdering Facility: [facility] Address: [address] [place] [address] Result Comment: Luzmaria mated Glomerular Filtration Rate [...] actual GFR. Performed By: #### 2 4321-2 ####[facility]ORATORYCLIA [id number] [address] Glucose [Mass/Vol] 104 mg/dL High 74-99 [facility] Comment on above: Order Comment: Speci men Type: BLOOD SPECIMENOrdering Facility: [facility] Address: [address] [place] [address] Result Comment: The [place] [employer] (ADA) provides guidance for cutoff [...] Standards of Medical Care in Diabetes 2016, [place] [employer]. Diabetes Care. 2016.39(Suppl 1). Performed By: #### 2 4321-2 ####[facility] LABORATORYCLIA [id number] [place] [address] [place] Potassium [Moles/Vol] 3.1 mmol/L Low 3.7-5.1 [facility] Comment on above: Order Comment: Speci men Type: BLOOD SPECIMENOrdering Facility: [facility] Address: [address] [place] [address] Performed By: #### 2 1-2 ####[facility]ITALCLIA [id number] [place] [address] [place] Sodium [Moles/Vol] 131 mmol/L Low 136-144 [facility] Comment on above: Order Comment: Speci men Type: BLOOD SPECIMENOrdering Facility: [facility] Address: [address] [address] Performed By: #### 2 1-2 ####[facility] LABORATORYCLIA [id number] [place] [address] [place] Urea nitrogen [Mass/Vol] 13 mg/dL Normal 9-24 [facility] Comment on above: Order Comment: Speci men Type: BLOOD SPECIMENOrdering Facility: [facility] Address: [address] [address] Performed By: #### 2 4321-2 ####[facility]ORATORYCLIA [id number] [place] [address] [place] CBC W Auto Differential pane l (Bld)on 08-14-2021 Basophils (Bld) [#/Vol] 10*3/uL Normal <0.11 [facility] Comment on above: Order Comment: Speci men Type: BLOOD SPECIMENOrdering Facility: [facility] Address: [address] [place] [address] Performed By: #### 5 7021-8 ####[facility]ORATORYCLIA [id number] [address] STATES [facility] Basophils/100 WBC (Bld) 0.2 % Normal [facility] Comment on above: Order Comment: Speci men Type: BLOOD SPECIMENOrdering Facility: [facility] Address: [address] [place] [address] Performed By: #### 5 7021-8 ####[facility] LABORATORYCLIA [id number] [address] Differential cell count method Nom (Bld) Auto Normal [facility] Comment on above: Order Comment: Speci men Type: BLOOD SPECIMENOrdering Facility: [facility] Address: [address] [place] [address] Performed By: #### 5 7021-8 ####[facility] LABORATORYCLIA [id number] [address] [place] Eosinophils (Bld) [#/Vol] 0.23 10*3/uL Normal <0.46 [facility] Comment on above: Order Comment: Speci men Type: BLOOD SPECIMENOrdering Facility: [facility] Address: [address] [address] Performed By: #### 5 7021-8 ####[facility] LABORATORYCLIA [id number] [address] Eosinophils/100 WBC (Bld) 2.7 % Normal [facility] Comment on above: Order Comment: Speci men Type: BLOOD SPECIMENOrdering Facility: [facility] Address: [address] [place] [address] Performed By: #### 5 7021-8 ####[facility] LABORATORYCLIA [id number] [address] Erythrocyte distribution width (RBC) [Ratio] 16.6 % High 11.5-15.0 [facility] Comment on above: Order Comment: Speci men Type: BLOOD SPECIMENOrdering Facility: [facility] Address: [address] [place] [address] Performed By: #### 5 7021-8 ####[facility] LABORATORYCLIA [id number] [address] Hematocrit (Bld) [Volume fraction] 28.6 % Low 39.0-51.0 [facility] Comment on above: Order Comment: Speci men Type: BLOOD SPECIMENOrdering Facility: [facility] Address: [address] [place] [address] Performed By: #### 5 7021-8 ####[facility] LABORATORYCLIA [id number] [address] Hemoglobin (Bld) [Mass/Vol] 9.0 g/dL Low 13.0-17.0 [facility] Comment on above: Order Comment: Speci men Type: BLOOD SPECIMENOrdering Facility: [facility] Address: [address] [place] [address] Performed By: #### 5 7021-8 ####[facility] LABORATORYCLIA [id number] [address] IMMATURE GRAN % 0.2 % Normal [facility] Comment on above: Order Comment: Speci men Type: BLOOD SPECIMENOrdering Facility: [facility] Address: [address] [place] [address] Performed By: #### 5 7021-8 ####[facility] LABORATORYCLIA [id number] [address] IMMATURE GRAN ABS <0.03 Normal <0.10 [facility] Comment on above: Order Comment: Speci men Type: BLOOD SPECIMENOrdering Facility: [facility] Address: [address] [place] [address] Performed By: #### 5 7021-8 ####[facility] LABORATORYCLIA [id number] [address] Lymphocytes (Bld) [#/Vol] 1.33 10*3/uL Normal 1.00-4.00 [facility] Comment on above: Order Comment: Speci men Type: BLOOD SPECIMENOrdering Facility: [facility] Address: [address] [place] [address] Performed By: #### 5 7021-8 ####[facility] LABORATORYCLIA [id number] [address] Lymphocytes/100 WBC (Bld) 15.6 % Normal [facility] Comment on above: Order Comment: Speci men Type: BLOOD SPECIMENOrdering Facility: [facility] Address: [address] [place] [address] Performed By: #### 5 7021-8 ####[facility] LABORATORYCLIA [id number] [address] STATES OF [facility] MCH (RBC) [Entitic mass] 29.0 pg Normal 26.0-34.0 [facility] Comment on above: Order Comment: Speci men Type: BLOOD SPECIMENOrdering Facility: [facility] Address: [address] [place] [address] Performed By: #### 5 7021-8 ####[facility]ORATORYCLIA [id number] [address] [place] MCHC (RBC) [Mass/Vol] 31.5 g/dL Normal 30.5-36.0 [facility] Comment on above: Order Comment: Speci men Type: BLOOD SPECIMENOrdering Facility: [facility] Address: [address] [place] [address] Performed By: #### 5 7021-8 ####[facility] LABORATORYCLIA [id number] [place] [address] [place] MCV (RBC) [Entitic vol] 92.3 fL Normal 80.0-100.0 [facility] Comment on above: Order Comment: Speci men Type: BLOOD SPECIMENOrdering Facility: [facility] Address: [address] [place] [address] Performed By: #### 5 7021-8 ####[facility] LABORATORYCLIA [id number] [place] [address] [place] Monocytes (Bld) [#/Vol] 0.44 10*3/uL Normal <0.87 [facility] Comment on above: Order Comment: Speci men Type: BLOOD SPECIMENOrdering Facility: [facility] Address: [address] [place] [address] Performed By: #### 5 7021-8 ####[facility]ATORYCLIA [id number] [address] [place] Monocytes/100 WBC (Bld) 5.2 % Normal [facility] Comment on above: Order Comment: Speci men Type: BLOOD SPECIMENOrdering Facility: [facility] Address: [address] [place] [address] Performed By: #### 5 7021-8 ####[facility]ORATORYCLIA [id number] [address] [place] Neutrophils (Bld) [#/Vol] 6.46 10*3/uL Normal 1.45-7.50 [facility] Comment on above: Order Comment: Speci men Type: BLOOD SPECIMENOrdering Facility: [facility] Address: [address] [place] [address] Performed By: #### 5 7021-8 ####[facility]ORATORYCLIA [id number] [address] [place] Neutrophils/100 WBC (Bld) 76.1 % Normal [facility] Comment on above: Order Comment: Speci men Type: BLOOD SPECIMENOrdering Facility: [facility] Address: [address] [place] [address] Performed By: #### 5 7021-8 ####[facility]ORATORYCLIA [id number] [address] [place] Nucleated RBC (Bld) [#/Vol] 10*3/uL Normal <0.01 [facility] Comment on above: Order Comment: Speci men Type: BLOOD SPECIMENOrdering Facility: [facility] Address: [address] [place] [address] Performed By: #### 5 7021-8 ####[facility] LABORATORYCLIA [id number] [address] [place] Nucleated RBC/100 WBC (Bld) [Ratio] 0.0 /100 WBC Normal [facility] Comment on above: Order Comment: Speci men Type: BLOOD SPECIMENOrdering Facility: [facility] Address: [address] [place] [address] Performed By: #### 5 7021-8 ####[facility] LABORATORYCLIA [id number] [address] [place] Platelet mean volume (Bld) [Entitic vol] 9.5 fL Normal 9.0-12.7 [facility] Comment on above: Order Comment: Speci men Type: BLOOD SPECIMENOrdering Facility: [facility] Address: [address] [place] [address] Performed By: #### 5 7021-8 ####[facility] LABORATORYCLIA [id number] [address] [place] Platelets (Bld) [#/Vol] 247 10*3/uL Normal 150-400 [facility] Comment on above: Order Comment: Speci men Type: BLOOD SPECIMENOrdering Facility: [facility] Address: [address] [place] [address] Performed By: #### 5 7021-8 ####[facility]ATORYCLIA [id number] [address] [place] RBC (Bld) [#/Vol] 3.10 10*6/uL Low 4.20-6.00 [facility] Comment on above: Order Comment: Speci men Type: BLOOD SPECIMENOrdering Facility: [facility] Address: [address] [place] [address] Performed By: #### 5 7021-8 ####[facility]ORATORYCLIA [id number] [address] [place] WBC (Bld) [#/Vol] 8.50 10*3/uL Normal 3.70-11.00 [facility] Comment on above: Order Comment: Speci men Type: BLOOD SPECIMENOrdering Facility: [facility] Address: [address] [place] [address] Performed By: #### 5 7021-8 ####[facility]ORATORYCLIA [id number] [address] [place] CONSULTon 08-14-2021 CONSULT Normal [facility] NURSING PROGon 08-14-2021 NURSING PROG Normal [facility] CBC W Auto Differential pane l (Bld)on 08-13-2021 Basophils (Bld) [#/Vol] 10*3/uL Normal <0.11 [facility] Comment on above: Order Comment: Speci men Type: BLOOD SPECIMENOrdering Facility: [facility] Address: [address] [place] [address] Performed By: #### 5 7021-8 ####[facility]ATORYCLIA [id number] [address] [place] Basophils/100 WBC (Bld) 0.2 % Normal [facility] Comment on above: Order Comment: Speci men Type: BLOOD SPECIMENOrdering Facility: [facility] Address: [address] [place] [address] Performed By: #### 5 7021-8 ####[facility]ORATORYCLIA [id number] [address] STATES OF [facility] Differential cell count method Nom (Bld) Auto Normal [facility] Comment on above: Order Comment: Speci men Type: BLOOD SPECIMENOrdering Facility: [facility] Address: [address] [place] [address] Performed By: #### 5 7021-8 ####[facility]ATORYCLIA [id number] [address] STATES OF [facility] Eosinophils (Bld) [#/Vol] 0.31 10*3/uL Normal <0.46 [facility] Comment on above: Order Comment: Speci men Type: BLOOD SPECIMENOrdering Facility: [facility] Address: [address] [place] [address] Performed By: #### 5 7021-8 ####[facility]ORATORYCLIA [id number] [address] Eosinophils/100 WBC (Bld) 3.7 % Normal [facility] Comment on above: Order Comment: Speci men Type: BLOOD SPECIMENOrdering Facility: [facility] Address: [address] [place] [address] Performed By: #### 5 7021-8 ####[facility]ATORYCLIA [id number] [address] Erythrocyte distribution width (RBC) [Ratio] 16.6 % High 11.5-15.0 [facility] Comment on above: Order Comment: Speci men Type: BLOOD SPECIMENOrdering Facility: [facility] Address: [address] [place] [address] Performed By: #### 5 7021-8 ####[facility]ATORYCLIA [id number] [address] Hematocrit (Bld) [Volume fraction] 27.5 % Low 39.0-51.0 [facility] Comment on above: Order Comment: Speci men Type: BLOOD SPECIMENOrdering Facility: [facility] Address: [address] [place] [address] Performed By: #### 5 7021-8 ####[facility] LABORATORYCLIA [id number] [address] [place] Hemoglobin (Bld) [Mass/Vol] 8.4 g/dL Low 13.0-17.0 [facility] Comment on above: Order Comment: Speci men Type: BLOOD SPECIMENOrdering Facility: [facility] Address: [address] [place] [address] Performed By: #### 5 7021-8 ####[facility] LABORATORYCLIA [id number] [address] IMMATURE GRAN % 0.5 % Normal [facility] Comment on above: Order Comment: Speci men Type: BLOOD SPECIMENOrdering Facility: [facility] Address: [address] [place] [address] Performed By: #### 5 7021-8 ####[facility] LABORATORYCLIA [id number] [address] IMMATURE GRAN ABS 0.04 k/uL Normal <0.10 [facility] Comment on above: Order Comment: Speci men Type: BLOOD SPECIMENOrdering Facility: [facility] Address: [address] [place] [address] Performed By: #### 5 7021-8 ####[facility] LABORATORYCLIA [id number] [address] [place] Lymphocytes (Bld) [#/Vol] 1.55 10*3/uL Normal 1.00-4.00 [facility] Comment on above: Order Comment: Speci men Type: BLOOD SPECIMENOrdering Facility: [facility] Address: [address] [place] [address] Performed By: #### 5 7021-8 ####[facility] LABORATORYCLIA [id number] [address] Lymphocytes/100 WBC (Bld) 18.7 % Normal [facility] Comment on above: Order Comment: Speci men Type: BLOOD SPECIMENOrdering Facility: [facility] Address: [address] [place] [address] Performed By: #### 5 7021-8 ####[facility] LABORATORYCLIA [id number] [address] MCH (RBC) [Entitic mass] 28.9 pg Normal 26.0-34.0 [facility] Comment on above: Order Comment: Speci men Type: BLOOD SPECIMENOrdering Facility: [facility] Address: [address] [place] [address] Performed By: #### 5 7021-8 ####[facility] LABORATORYCLIA [id number] [address] [place] [facility] [facility] MCHC (RBC) [Mass/Vol] 30.5 g/dL Normal 30.5-36.0 [facility] Comment on above: Order Comment: Speci men Type: BLOOD SPECIMENOrdering Facility: [facility] Address: [address] [place] [address] Performed By: #### 5 7021-8 ####[facility] LABORATORYCLIA [id number] [address] [place] MCV (RBC) [Entitic vol] 94.5 fL Normal 80.0-100.0 [facility] Comment on above: Order Comment: Speci men Type: BLOOD SPECIMENOrdering Facility: [facility] Address: [address] [place] [address] Performed By: #### 5 7021-8 ####[facility] LABORATORYCLIA [id number] [address] [place] Monocytes (Bld) [#/Vol] 0.47 10*3/uL Normal <0.87 [facility] Comment on above: Order Comment: Speci men Type: BLOOD SPECIMENOrdering Facility: [facility] Address: [address] [place] [address] Performed By: #### 5 7021-8 ####[facility] LABORATORYCLIA [id number] [address] Monocytes/100 WBC (Bld) 5.7 % Normal [facility] Comment on above: Order Comment: Speci men Type: BLOOD SPECIMENOrdering Facility: [facility] Address: [address] [place] [address] Performed By: #### 5 7021-8 ####[facility] LABORATORYCLIA [id number] [place] [address] [place] Neutrophils (Bld) [#/Vol] 5.92 10*3/uL Normal 1.45-7.50 [facility] Comment on above: Order Comment: Speci men Type: BLOOD SPECIMENOrdering Facility: [facility] Address: [address] [place] [address] Performed By: #### 5 7021-8 ####[facility] LABORATORYCLIA [id number] [address] [place] Neutrophils/100 WBC (Bld) 71.2 % Normal [facility] Comment on above: Order Comment: Speci men Type: BLOOD SPECIMENOrdering Facility: [facility] Address: [address] [place] [address] Performed By: #### 5 7021-8 ####[facility] LABORATORYCLIA [id number] [address] [place] Nucleated RBC (Bld) [#/Vol] 10*3/uL Normal <0.01 [facility] Comment on above: Order Comment: Speci men Type: BLOOD SPECIMENOrdering Facility: [facility] Address: [address] [place] [address] Performed By: #### 5 7021-8 ####[facility] LABORATORYCLIA [id number] [address] [place] Nucleated RBC/100 WBC (Bld) [Ratio] 0.0 /100 WBC Normal [facility] Comment on above: Order Comment: Speci men Type: BLOOD SPECIMENOrdering Facility: [facility] Address: [address] [place] [address] Performed By: #### 5 7021-8 ####[facility] LABORATORYCLIA [id number] [address] [place] Platelet mean volume (Bld) [Entitic vol] 9.9 fL Normal 9.0-12.7 [facility] Comment on above: Order Comment: Speci men Type: BLOOD SPECIMENOrdering Facility: [facility] Address: [address] [place] [address] Performed By: #### 5 7021-8 ####[facility] LABORATORYCLIA [id number] [address] Platelets (Bld) [#/Vol] 203 10*3/uL Normal 150-400 [facility] Comment on above: Order Comment: Speci men Type: BLOOD SPECIMENOrdering Facility: [facility] Address: [address] [place] [address] Performed By: #### 5 7021-8 ####[facility] LABORATORYCLIA [id number] [address] RBC (Bld) [#/Vol] 2.91 10*6/uL Low 4.20-6.00 [facility] Comment on above: Order Comment: Speci men Type: BLOOD SPECIMENOrdering Facility: [facility] Address: [address] [place] [address] Performed By: #### 5 7021-8 ####[facility] LABORATORYCLIA [id number] [address] WBC (Bld) [#/Vol] 8.31 10*3/uL Normal 3.70-11.00 [facility] Comment on above: Order Comment: Speci men Type: BLOOD SPECIMENOrdering Facility: [facility] Address: [address] [place] [address] Performed By: #### 5 7021-8 ####[facility] LABORATORYCLIA [id number] [address] aPTT PPPon 08-13-2021 aPTT Coag (PPP) [Time] 69.7 s High 23.0-32.[address] [facility] Comment on above: Order Comment: Speci men Type: BLOOD SPECIMENOrdering Facility: [facility] Address: [address] [place] [address] Performed By: #### 1 4979-9 ####[facility] LABORATORYCLIA [id number] [place] [address] [place] aPTT Coag (PPP) [Time] 70.6 s High 23.0-32.[address] [facility] Comment on above: Order Comment: Speci men Type: BLOOD SPECIMENOrdering Facility: [facility] Address: [address] [place] [address] Performed By: #### 1 4979-9 ####[facility] LABORATORYCLIA [id number] [place] [address] [place] ALLIED HEALTHon 08-12-2021 ALLIED HEALTH Normal [facility] ALLIED HEALTH Normal [facility] Basic metabolic 2000 panelon 08-12-2021 Anion gap [Moles/Vol] 7 mmol/L Low 9-18 [facility] Comment on above: Order Comment: Speci men Type: BLOOD SPECIMENOrdering Facility: [facility] Address: [address] [place] [address] Performed By: #### 2 4321-2, , 2776-05 ####[facility] LABORATORYCLIA [id number] [place] [address] [place] Calcium [Mass/Vol] 8.8 mg/dL Normal 8.5-10.2 [facility] Comment on above: Order Comment: Speci men Type: BLOOD SPECIMENOrdering Facility: [facility] Address: [address] [place] [address] Performed By: #### 2 4321-2, , 2776-05 ####[facility] LABORATORYCLIA [id number] [place] [address] [place] Chloride [Moles/Vol] 96 mmol/L Low 97-105 [facility] Comment on above: Order Comment: Speci men Type: BLOOD SPECIMENOrdering Facility: [facility] Address: [address] [place] [address] Performed By: #### 2 4321-2, , 2776-05 ####[facility] LABORATORYCLIA [id number] [address] [place] CO2 [Moles/Vol] 32 mmol/L High 22-30 [facility] Comment on above: Order Comment: Speci men Type: BLOOD SPECIMENOrdering Facility: [facility] Address: [address] [place] [address] Performed By: #### 2 4321-2, , 2776-05 ####[facility] LABORATORYCLIA [id number] [address] [place] Creatinine [Mass/Vol] 0.52 mg/dL Low 0.73-1.22 [facility] Comment on above: Order Comment: Speci men Type: BLOOD SPECIMENOrdering Facility: [facility] Address: [address] [place] [address] Performed By: #### 2 4321-2, , 2776-05 ####[facility] LABORATORYCLIA [id number] [address] ESTIMATED GLOMERULAR FILTRATION RATE 109 mL/min/1.73m??? Normal >=60 [facility] Comment on above: Order Comment: Speci men Type: BLOOD SPECIMENOrdering Facility: [facility] Address: [address] [place] [address] Result Comment: Luzmaria mated Glomerular Filtration Rate [...] Performed By: #### 2 4321-2, , 2776-05 ####[facility] LABORATORYCLIA [id number] [place] [address] [place] Glucose [Mass/Vol] 119 mg/dL High 74-99 [facility] Comment on above: Order Comment: Speci men Type: BLOOD SPECIMENOrdering Facility: [facility] Address: [address] [place] [address] Result Comment: The [place] [employer] (ADA) provides guidance for cutoff [...] Standards of Medical Care in Diabetes 2016, [place] [employer]. Diabetes Care. 2016.39(Suppl 1). Performed By: #### 2 4321-2, , 2776-05 ####[facility]ORATORYCLIA [id number] [place] [address] [place] Potassium [Moles/Vol] 3.7 mmol/L Normal 3.7-5.1 [facility] Comment on above: Order Comment: Speci men Type: BLOOD SPECIMENOrdering Facility: [facility] Address: [address] [place], [place] [address] Performed By: #### 2 4321-2, , 2776-05 ####[facility]ORATORYCLIA [id number] [place] [address] [place] Sodium [Moles/Vol] 135 mmol/L Low 136-144 [facility] Comment on above: Order Comment: Speci men Type: BLOOD SPECIMENOrdering Facility: [facility] Address: [address] Performed By: #### 2 4321-2, , 2776-05 ####[facility] LABORATORYCLIA [id number] [place] [address] [place] Urea nitrogen [Mass/Vol] 20 mg/dL Normal 9-24 [facility] Comment on above: Order Comment: Speci men Type: BLOOD SPECIMENOrdering Facility: [facility] Address: [address] Performed By: #### 2 4321-2, 04352-0, 2777-1 ####[facility] LABORATORYCLIA [id number] [address] [place] CASE MANAGEMon 08-12-2021 CASE MANAGEM Normal [facility] CBC W Auto Differential pane l (Bld)on 08-12-2021 Basophils (Bld) [#/Vol] 0.04 10*3/uL Normal <0.11 [facility] Comment on above: Order Comment: Speci men Type: BLOOD SPECIMENOrdering Facility: [facility] Address: [address] [place] [address] Performed By: #### 5 7021-8 ####[facility] LABORATORYCLIA [id number] [address] Basophils/100 WBC (Bld) 0.5 % Normal [facility] Comment on above: Order Comment: Speci men Type: BLOOD SPECIMENOrdering Facility: [facility] Address: [address] [address] Performed By: #### 5 7021-8 ####[facility] LABORATORYCLIA [id number] [address] Differential cell count method Nom (Bld) Auto Normal [facility] Comment on above: Order Comment: Speci men Type: BLOOD SPECIMENOrdering Facility: [facility] Address: [address] [address] Performed By: #### 5 7021-8 ####[facility] LABORATORYCLIA [id number] [address] [place] Eosinophils (Bld) [#/Vol] 0.19 10*3/uL Normal <0.46 [facility] Comment on above: Order Comment: Speci men Type: BLOOD SPECIMENOrdering Facility: [facility] Address: [address] [address] Performed By: #### 5 7021-8 ####[facility] LABORATORYCLIA [id number] [address] [place] Eosinophils/100 WBC (Bld) 2.3 % Normal [facility] Comment on above: Order Comment: Speci men Type: BLOOD SPECIMENOrdering Facility: [facility] Address: [address] [place] [address] Performed By: #### 5 7021-8 ####[facility] LABORATORYCLIA [id number] [address] Erythrocyte distribution width (RBC) [Ratio] 17.1 % High 11.5-15.0 [facility] Comment on above: Order Comment: Speci men Type: BLOOD SPECIMENOrdering Facility: [facility] Address: [address] [place] [address] Performed By: #### 5 7021-8 ####[facility] LABORATORYCLIA [id number] [address] Hematocrit (Bld) [Volume fraction] 25.3 % Low 39.0-51.0 [facility] Comment on above: Order Comment: Speci men Type: BLOOD SPECIMENOrdering Facility: [facility] Address: [address] [place] [address] Performed By: #### 5 7021-8 ####[facility] LABORATORYCLIA [id number] [address] Hemoglobin (Bld) [Mass/Vol] 7.9 g/dL Low 13.0-17.0 [facility] Comment on above: Order Comment: Speci men Type: BLOOD SPECIMENOrdering Facility: [facility] Address: [address] [place] [address] Performed By: #### 5 7021-8 ####[facility]ORATORYCLIA [id number] [address] IMMATURE GRAN % 0.5 % Normal [facility] Comment on above: Order Comment: Speci men Type: BLOOD SPECIMENOrdering Facility: [facility] Address: [address] [place] [address] Performed By: #### 5 7021-8 ####[facility]ORATORYCLIA [id number] [address] IMMATURE GRAN ABS 0.04 k/uL Normal <0.10 [facility] Comment on above: Order Comment: Speci men Type: BLOOD SPECIMENOrdering Facility: [facility] Address: [address] [place] [address] Performed By: #### 5 7021-8 ####[facility] LABORATORYCLIA [id number] [address] Lymphocytes (Bld) [#/Vol] 1.69 10*3/uL Normal 1.00-4.00 [facility] Comment on above: Order Comment: Speci men Type: BLOOD SPECIMENOrdering Facility: [facility] Address: [address] [place] [address] Performed By: #### 5 7021-8 ####[facility] LABORATORYCLIA [id number] [address] Lymphocytes/100 WBC (Bld) 20.1 % Normal [facility] Comment on above: Order Comment: Speci men Type: BLOOD SPECIMENOrdering Facility: [facility] Address: [address] [place] [address] Performed By: #### 5 7021-8 ####[facility] LABORATORYCLIA [id number] [address] MCH (RBC) [Entitic mass] 28.5 pg Normal 26.0-34.0 [facility] Comment on above: Order Comment: Speci men Type: BLOOD SPECIMENOrdering Facility: [facility] Address: [address] [place] [address] Performed By: #### 5 7021-8 ####[facility] LABORATORYCLIA [id number] [address] MCHC (RBC) [Mass/Vol] 31.2 g/dL Normal 30.5-36.0 [facility] Comment on above: Order Comment: Speci men Type: BLOOD SPECIMENOrdering Facility: [facility] Address: [address] [address] Performed By: #### 5 7021-8 ####[facility]ORATORYCLIA [id number] [address] [place] MCV (RBC) [Entitic vol] 91.3 fL Normal 80.0-100.0 [facility] Comment on above: Order Comment: Speci men Type: BLOOD SPECIMENOrdering Facility: [facility] Address: [address] [place] [address] Performed By: #### 5 7021-8 ####[facility] LABORATORYCLIA [id number] [address] [place] Monocytes (Bld) [#/Vol] 0.53 10*3/uL Normal <0.87 [facility] Comment on above: Order Comment: Speci men Type: BLOOD SPECIMENOrdering Facility: [facility] Address: [address] [place] [address] Performed By: #### 5 7021-8 ####[facility] LABORATORYCLIA [id number] [address] STATES [facility] Monocytes/100 WBC (Bld) 6.3 % Normal [facility] Comment on above: Order Comment: Speci men Type: BLOOD SPECIMENOrdering Facility: [facility] Address: [address] [place] [address] Performed By: #### 5 7021-8 ####[facility] LABORATORYCLIA [id number] [address] [place] Neutrophils (Bld) [#/Vol] 5.90 10*3/uL Normal 1.45-7.50 [facility] Comment on above: Order Comment: Speci men Type: BLOOD SPECIMENOrdering Facility: [facility] Address: [address] [place] [address] Performed By: #### 5 7021-8 ####[facility]ORATORYCLIA [id number] [address] [place] Neutrophils/100 WBC (Bld) 70.3 % Normal [facility] Comment on above: Order Comment: Speci men Type: BLOOD SPECIMENOrdering Facility: [facility] Address: [address] [place] [address] Performed By: #### 5 7021-8 ####[facility] LABORATORYCLIA [id number] [address] [place] Nucleated RBC (Bld) [#/Vol] 10*3/uL Normal <0.01 [facility] Comment on above: Order Comment: Speci men Type: BLOOD SPECIMENOrdering Facility: [facility] Address: [address] [place] [address] Performed By: #### 5 7021-8 ####[facility]ORATORYCLIA [id number] [address] [place] Nucleated RBC/100 WBC (Bld) [Ratio] 0.0 /100 WBC Normal [facility] Comment on above: Order Comment: Speci men Type: BLOOD SPECIMENOrdering Facility: [facility] Address: [address] [place] [address] Performed By: #### 5 7021-8 ####[facility] LABORATORYCLIA [id number] [address] [place] Platelet mean volume (Bld) [Entitic vol] 9.8 fL Normal 9.0-12.7 [facility] Comment on above: Order Comment: Speci men Type: BLOOD SPECIMENOrdering Facility: [facility] Address: [address] [place], [place] [address] Performed By: #### 5 7021-8 ####[facility] LABORATORYCLIA [id number] [address] [place] Platelets (Bld) [#/Vol] 164 10*3/uL Normal 150-400 [facility] Comment on above: Order Comment: Speci men Type: BLOOD SPECIMENOrdering Facility: [facility] Address: [address] [place] [address] Performed By: #### 5 7021-8 ####[facility]ORATORYCLIA [id number] [address] [place] RBC (Bld) [#/Vol] 2.77 10*6/uL Low 4.20-6.00 [facility] Comment on above: Order Comment: Speci men Type: BLOOD SPECIMENOrdering Facility: [facility] Address: [address] [place] [address] Performed By: #### 5 7021-8 ####[facility]ORATORYCLIA [id number] [address] [place] WBC (Bld) [#/Vol] 8.39 10*3/uL Normal 3.70-11.00 [facility] Comment on above: Order Comment: Speci men Type: BLOOD SPECIMENOrdering Facility: [facility] Address: [address] [place] [address] Performed By: #### 5 7021-8 ####[facility] LABORATORYCLIA [id number] [place] [address] [place] [address] BRAIN WO IVCONon 08-13-19 CT BRAIN WO IVCON Normal [facility] CT BRAIN WO IVCON Normal [facility] Magnesium SerPl-mCncon 08-12 Magnesium [Mass/Vol] 2.0 mg/dL Normal 1.7-2.3 [facility] Comment on above: Order Comment: Speci men Type: BLOOD SPECIMENOrdering Facility: [facility] Address: [address] [place] [address] Performed By: #### 2 4321-2, 27080-7, 2777-1 ####[facility]ORATORYCLIA [id number] [address] [place] Phosphate SerPl-mCncon 08-12 Phosphate [Mass/Vol] 2.9 mg/dL Normal 2.7-4.8 [facility] Comment on above: Order Comment: Speci men Type: BLOOD SPECIMENOrdering Facility: [facility] Address: [address] [place] [address] Performed By: #### 2 4321-2, 12789-7, 2777-1 ####[facility]ORATORYCLIA [id number] [address] OF [facility] THERAPY NTon 08-12-2021 THERAPY NT Normal [facility] THERAPY NT Normal [facility] aPTT PPPon 08-12-2021 aPTT Coag (PPP) [Time] 94.2 s High 23.0-32.[address] [facility] Comment on above: Order Comment: Speci men Type: BLOOD SPECIMENOrdering Facility: [facility] Address: [address] [place] [address] Performed By: #### 1 4979-9 ####[facility]ORATORYCLIA [id number] [address] aPTT Coag (PPP) [Time] 84.4 s High 23.0-32.[address] [facility] Comment on above: Order Comment: Speci men Type: BLOOD SPECIMENOrdering Facility: [facility] Address: [address] [place] [address] Performed By: #### 1 4979-9 ####[facility]ORATORYCLIA [id number] [address] aPTT Coag (PPP) [Time] 71.3 s High 23.0-32.[address] [facility] Comment on above: Order Comment: Speci men Type: BLOOD SPECIMENOrdering Facility: [facility] Address: [address] [place] [address] Performed By: #### 1 4979-9 ####[facility]ORATORYCLIA [id number] [address] [facility] ALLIED HEALTHon 08-11-2021 ALLIED HEALTH Normal [facility] CBC W Auto Differential pane l (Bld)on 08-11-2021 Basophils (Bld) [#/Vol] 10*3/uL Normal <0.11 [facility] Comment on above: Order Comment: Speci men Type: BLOOD SPECIMENOrdering Facility: [facility] Address: [address] [place] [address] Performed By: #### 5 7021-8 ####[facility]ORATORYCLIA [id number] [address] Basophils/100 WBC (Bld) 0.2 % Normal [facility] Comment on above: Order Comment: Speci men Type: BLOOD SPECIMENOrdering Facility: [facility] Address: [address] [place] [address] Performed By: #### 5 7021-8 ####[facility] LABORATORYCLIA [id number] [address] [place] Differential cell count method Nom (Bld) Auto Normal [facility] Comment on above: Order Comment: Speci men Type: BLOOD SPECIMENOrdering Facility: [facility] Address: [address] [place] [address] Performed By: #### 5 7021-8 ####[facility] LABORATORYCLIA [id number] [address] [place] Eosinophils (Bld) [#/Vol] 0.16 10*3/uL Normal <0.46 [facility] Comment on above: Order Comment: Speci men Type: BLOOD SPECIMENOrdering Facility: [facility] Address: [address] [place] [address] Performed By: #### 5 7021-8 ####[facility] LABORATORYCLIA [id number] [address] [place] Eosinophils/100 WBC (Bld) 1.8 % Normal [facility] Comment on above: Order Comment: Speci men Type: BLOOD SPECIMENOrdering Facility: [facility] Address: [address] [place] [address] Performed By: #### 5 7021-8 ####[facility]ORATORYCLIA [id number] [address] [place] Erythrocyte distribution width (RBC) [Ratio] 17.3 % High 11.5-15.0 [facility] Comment on above: Order Comment: Speci men Type: BLOOD SPECIMENOrdering Facility: [facility] Address: [address] [place] [address] Performed By: #### 5 7021-8 ####[facility] LABORATORYCLIA [id number] [address] Hematocrit (Bld) [Volume fraction] 26.6 % Low 39.0-51.0 [facility] Comment on above: Order Comment: Speci men Type: BLOOD SPECIMENOrdering Facility: [facility] Address: [address] [place] [address] Performed By: #### 5 7021-8 ####[facility] LABORATORYCLIA [id number] [address] Hemoglobin (Bld) [Mass/Vol] 8.2 g/dL Low 13.0-17.0 [facility] Comment on above: Order Comment: Speci men Type: BLOOD SPECIMENOrdering Facility: [facility] Address: [address] [place] [address] Performed By: #### 5 7021-8 ####[facility] LABORATORYCLIA [id number] [address] IMMATURE GRAN % 0.6 % Normal [facility] Comment on above: Order Comment: Speci men Type: BLOOD SPECIMENOrdering Facility: [facility] Address: [address] [place] [address] Performed By: #### 5 7021-8 ####[facility] LABORATORYCLIA [id number] [address] IMMATURE GRAN ABS 0.05 k/uL Normal <0.10 [facility] Comment on above: Order Comment: Speci men Type: BLOOD SPECIMENOrdering Facility: [facility] Address: [address] [place] [address] Performed By: #### 5 7021-8 ####[facility]ORATORYCLIA [id number] [address] OF [facility] Lymphocytes (Bld) [#/Vol] 1.40 10*3/uL Normal 1.00-4.00 [facility] Comment on above: Order Comment: Speci men Type: BLOOD SPECIMENOrdering Facility: [facility] Address: [address] [place] [address] Performed By: #### 5 7021-8 ####[facility] LABORATORYCLIA [id number] [address] Lymphocytes/100 WBC (Bld) 15.8 % Normal [facility] Comment on above: Order Comment: Speci men Type: BLOOD SPECIMENOrdering Facility: [facility] Address: [address] [place] [address] Performed By: #### 5 7021-8 ####[facility] LABORATORYCLIA [id number] [address] MCH (RBC) [Entitic mass] 28.4 pg Normal 26.0-34.0 [facility] Comment on above: Order Comment: Speci men Type: BLOOD SPECIMENOrdering Facility: [facility] Address: [address] [place] [address] Performed By: #### 5 7021-8 ####[facility] LABORATORYCLIA [id number] [address] MCHC (RBC) [Mass/Vol] 30.8 g/dL Normal 30.5-36.0 [facility] Comment on above: Order Comment: Speci men Type: BLOOD SPECIMENOrdering Facility: [facility] Address: [address] [place] [address] Performed By: #### 5 7021-8 ####[facility] LABORATORYCLIA [id number] [address] [place] [facility] MCV (RBC) [Entitic vol] 92.0 fL Normal 80.0-100.0 [facility] Comment on above: Order Comment: Speci men Type: BLOOD SPECIMENOrdering Facility: [facility] Address: [address] [place] [address] Performed By: #### 5 7021-8 ####[facility]ORATORYCLIA [id number] [place] [address] [place] Monocytes (Bld) [#/Vol] 0.61 10*3/uL Normal <0.87 [facility] Comment on above: Order Comment: Speci men Type: BLOOD SPECIMENOrdering Facility: [facility] Address: [address] [place] [address] Performed By: #### 5 7021-8 ####[facility]ORATORYCLIA [id number] [address] [place] Monocytes/100 WBC (Bld) 6.9 % Normal [facility] Comment on above: Order Comment: Speci men Type: BLOOD SPECIMENOrdering Facility: [facility] Address: [address] [place] [address] Performed By: #### 5 7021-8 ####[facility] LABORATORYCLIA [id number] [address] [place] Neutrophils (Bld) [#/Vol] 6.62 10*3/uL Normal 1.45-7.50 [facility] Comment on above: Order Comment: Speci men Type: BLOOD SPECIMENOrdering Facility: [facility] Address: [address] [place] [address] Performed By: #### 5 7021-8 ####[facility] LABORATORYCLIA [id number] [address] [place] Neutrophils/100 WBC (Bld) 74.7 % Normal [facility] Comment on above: Order Comment: Speci men Type: BLOOD SPECIMENOrdering Facility: [facility] Address: [address] [place] [address] Performed By: #### 5 7021-8 ####[facility] LABORATORYCLIA [id number] [place] [address] [place] Nucleated RBC (Bld) [#/Vol] 10*3/uL Normal <0.01 [facility] Comment on above: Order Comment: Speci men Type: BLOOD SPECIMENOrdering Facility: [facility] Address: [address] [place], [place] [id number] Performed By: #### 5 7021-8 ####[facility] LABORATORYCLIA [id number] [address] Nucleated RBC/100 WBC (Bld) [Ratio] 0.0 /100 WBC Normal [facility] Comment on above: Order Comment: Speci men Type: BLOOD SPECIMENOrdering Facility: [facility] Address: [address] [place] [address] Performed By: #### 5 7021-8 ####[facility] LABORATORYCLIA [id number] [address] [place] Platelet mean volume (Bld) [Entitic vol] 9.8 fL Normal 9.0-12.7 [facility] Comment on above: Order Comment: Speci men Type: BLOOD SPECIMENOrdering Facility: [facility] Address: [address] [place] [address] Performed By: #### 5 7021-8 ####[facility] LABORATORYCLIA [id number] [address] [place] Platelets (Bld) [#/Vol] 157 10*3/uL Normal 150-400 [facility] Comment on above: Order Comment: Speci men Type: BLOOD SPECIMENOrdering Facility: [facility] Address: [address] [place] [address] Performed By: #### 5 7021-8 ####[facility] LABORATORYCLIA [id number] [address] [place] RBC (Bld) [#/Vol] 2.89 10*6/uL Low 4.20-6.00 [facility] Comment on above: Order Comment: Speci men Type: BLOOD SPECIMENOrdering Facility: [facility] Address: [address] [place] [address] Performed By: #### 5 7021-8 ####[facility] LABORATORYCLIA [id number] [address] [place] WBC (Bld) [#/Vol] 8.86 10*3/uL Normal 3.70-11.00 [facility] Comment on above: Order Comment: Speci men Type: BLOOD SPECIMENOrdering Facility: [facility] Address: [address] [place] [address] Performed By: #### 5 7021-8 ####[facility] LABORATORYCLIA [id number] [address] CBC panel Auto (Bld)on 08-11 Erythrocyte distribution width (RBC) [Ratio] 17.2 % High 11.5-15.0 [facility] Comment on above: Order Comment: Speci men Type: BLOOD SPECIMENOrdering Facility: [facility] Address: [address] [place] [address] Performed By: #### 5 8410-2 ####[facility] LABORATORYCLIA [id number] [address] Hematocrit (Bld) [Volume fraction] 27.0 % Low 39.0-51.0 [facility] Comment on above: Order Comment: Speci men Type: BLOOD SPECIMENOrdering Facility: [facility] Address: [address] [place] [address] Performed By: #### 5 8410-2 ####[facility] LABORATORYCLIA [id number] [address] Hemoglobin (Bld) [Mass/Vol] 8.3 g/dL Low 13.0-17.0 [facility] Comment on above: Order Comment: Speci men Type: BLOOD SPECIMENOrdering Facility: [facility] Address: [address] [place] [address] Performed By: #### 5 8410-2 ####[facility] LABORATORYCLIA [id number] [address] MCH (RBC) [Entitic mass] 28.7 pg Normal 26.0-34.0 [facility] Comment on above: Order Comment: Speci men Type: BLOOD SPECIMENOrdering Facility: [facility] Address: [address] [place] [address] Performed By: #### 5 8410-2 ####[facility] LABORATORYCLIA [id number] [address] MCHC (RBC) [Mass/Vol] 30.7 g/dL Normal 30.5-36.0 [facility] Comment on above: Order Comment: Speci men Type: BLOOD SPECIMENOrdering Facility: [facility] Address: [address] [place] [address] Performed By: #### 5 8410-2 ####[facility] LABORATORYCLIA [id number] [address] MCV (RBC) [Entitic vol] 93.4 fL Normal 80.0-100.0 [facility] Comment on above: Order Comment: Speci men Type: BLOOD SPECIMENOrdering Facility: [facility] Address: [address] [place] [address] Performed By: #### 5 8410-2 ####[facility] LABORATORYCLIA [id number] [address] Nucleated RBC (Bld) [#/Vol] 10*3/uL Normal <0.01 [facility] Comment on above: Order Comment: Speci men Type: BLOOD SPECIMENOrdering Facility: [facility] Address: [address] [place] [address] Performed By: #### 5 8410-2 ####[facility] LABORATORYCLIA [id number] [address] Platelet mean volume (Bld) [Entitic vol] 9.8 fL Normal 9.0-12.7 [facility] Comment on above: Order Comment: Speci men Type: BLOOD SPECIMENOrdering Facility: [facility] Address: [address] [place] [address] Performed By: #### 5 8410-2 ####[facility] LABORATORYCLIA [id number] [address] [place] Platelets (Bld) [#/Vol] 169 10*3/uL Normal 150-400 [facility] Comment on above: Order Comment: Speci men Type: BLOOD SPECIMENOrdering Facility: [facility] Address: [address] [place] [address] Performed By: #### 5 8410-2 ####[facility]ORATORYCLIA [id number] [place] [address] [place] RBC (Bld) [#/Vol] 2.89 10*6/uL Low 4.20-6.00 [facility] Comment on above: Order Comment: Speci men Type: BLOOD SPECIMENOrdering Facility: [facility] Address: [address] [place] [address] Performed By: #### 5 8410-2 ####[facility] LABORATORYCLIA [id number] [address] STATES OF [facility] WBC (Bld) [#/Vol] 9.03 10*3/uL Normal 3.70-11.00 [facility] Comment on above: Order Comment: Speci men Type: BLOOD SPECIMENOrdering Facility: [facility] Address: [address] [place] [address] Performed By: #### 5 8410-2 ####[facility]ORATORYCLIA [id number] [address] BRAIN WO IVCONon 08-12-19 CT BRAIN WO IVCON Normal [facility] PT panel Coag (PPP)on 2021 INR Coag (PPP) [Relative time] 1.0 {INR} Normal 0.9-1.3 [facility] Comment on above: Order Comment: Speci men Type: BLOOD SPECIMENOrdering Facility: [facility] Address: [address] [place] [address] Result Comment: Yris min K Antagonist (VKA) Therapeutic Range: INR 2 to 3 (Target INR of 2.5)Note: For patients treated with VKA drugs, such as warfarin, the [employer] 2012 Guideline recommends [...] al. Chest 2012, 141:7S-47SNishimura RA, et al. [facility] 2017, 70: 252-289 Performed By: #### 1 4979-9, 83349-2 ####[facility]ORATORYCLIA [id number] [address] OF [facility] PT Coag (PPP) [Time] 11.4 s Normal 9.7-13.0 [facility] Comment on above: Order Comment: Speccara feldman Type: BLOOD SPECIMENOrdering Facility: [facility] Address: [address] [place] [address] Performed By: #### 1 4979-9, 68708-8 ####[facility] LABORATORYCLIA [id number] [address] THERAPY NTon 08-11-2021 THERAPY NT Normal [facility] US DVT LOWER BILon 2 US DVT LOWER RAINER Normal [facility] US DVT UPPER BILon 2 US DVT UPPER RAINER Normal [facility] aPTT PPPon 08-11-2021 aPTT Coag (PPP) [Time] 26.9 s Normal 23.0-32.[address] [facility] Comment on above: Order Comment: Shira feldman Type: BLOOD SPECIMENOrdering Facility: [facility] Address: [address] [address] Performed By: #### 1 4979-9, 46715-0 ####[facility]ORATORYCLIA [id number] [address] [place] Basic metabolic 2000 panelon 08-10-2021 Anion gap [Moles/Vol] 11 mmol/L Normal 9-18 [facility] Comment on above: Order Comment: Speci men Type: BLOOD SPECIMENOrdering Facility: [facility] Address: [address] [place] [address] Performed By: #### 2 4321-2 ####[facility] LABORATORYCLIA [id number] [place] [address] [place] Calcium [Mass/Vol] 8.7 mg/dL Normal 8.5-10.2 [facility] Comment on above: Order Comment: Speci men Type: BLOOD SPECIMENOrdering Facility: [facility] Address: [address] [place] [address] Performed By: #### 2 4321-2 ####[facility]ORATORYCLIA [id number] [place] [address] [place] Chloride [Moles/Vol] 98 mmol/L Normal 97-105 [facility] Comment on above: Order Comment: Speci men Type: BLOOD SPECIMENOrdering Facility: [facility] Address: [address] [place] [address] Performed By: #### 2 4321-2 ####[facility] LABORATORYCLIA [id number] [place] [address] [place] CO2 [Moles/Vol] 28 mmol/L Normal 22-30 [facility] Comment on above: Order Comment: Speci men Type: BLOOD SPECIMENOrdering Facility: [facility] Address: [address] [place] [address] Performed By: #### 2 4321-2 ####[facility] LABORATORYCLIA [id number] [place] [address] [place] Creatinine [Mass/Vol] 0.59 mg/dL Low 0.73-1.22 [facility] Comment on above: Order Comment: Speci men Type: BLOOD SPECIMENOrdering Facility: [facility] Address: [address] [place] [address] Performed By: #### 2 4321-2 ####[facility] LABORATORYCLIA [id number] [place] [address] [place] ESTIMATED GLOMERULAR FILTRATION RATE 105 mL/min/1.73m??? Normal >=60 [facility] Comment on above: Order Comment: Shira feldman Type: BLOOD SPECIMENOrdering Facility: [facility] Address: [address] [place] [address] Result Comment: Luzmaria mated Glomerular Filtration Rate [...] actual GFR. Performed By: #### 2 4321-2 ####[facility]ORATORYCLIA [id number] [place] [address] [place] Glucose [Mass/Vol] 118 mg/dL High 74-99 [facility] Comment on above: Order Comment: Shira feldman Type: BLOOD SPECIMENOrdering Facility: [facility] Address: [address] [place] [address] Result Comment: The [place] [employer] (ADA) provides guidance for cutoff [...] Standards of Medical Care in Diabetes 2016, [place] [employer]. Diabetes Care. 2016.39(Suppl 1). Performed By: #### 2 4321-2 ####[facility] LABORATORYCLIA [id number] [place] [id number] [place] Potassium [Moles/Vol] 3.7 mmol/L Normal 3.7-5.1 [facility] Comment on above: Order Comment: Speci men Type: BLOOD SPECIMENOrdering Facility: [facility] Address: [address] [place] [address] Performed By: #### 2 4321-2 ####[facility] LABORATORYCLIA [id number] [address] STATES OF [facility] Sodium [Moles/Vol] 137 mmol/L Normal 136-144 [facility] Comment on above: Order Comment: Speci men Type: BLOOD SPECIMENOrdering Facility: [facility] Address: [address] [place] [address] Performed By: #### 2 4321-2 ####[facility] LABORATORYCLIA [id number] [address] [place] Urea nitrogen [Mass/Vol] 23 mg/dL Normal 9-24 [facility] Comment on above: Order Comment: Speci men Type: BLOOD SPECIMENOrdering Facility: [facility] Address: [address] [place] [address] Performed By: #### 2 4321-2 ####[facility] LABORATORYCLIA [id number] [address] [place] [facility] Anion gap [Moles/Vol] 17 mmol/L Normal 9-18 [facility] Comment on above: Order Comment: Speci men Type: BLOOD SPECIMENOrdering Facility: [facility] Address: [address] [place] [address] Performed By: #### 1 9123-9, 2777-1, 61156-9 ####[facility]ORATORYCLIA [id number] [address] [place] Calcium [Mass/Vol] 7.7 mg/dL Low 8.5-10.2 [facility] Comment on above: Order Comment: Speci men Type: BLOOD SPECIMENOrdering Facility: [facility] Address: [address] [place] [address] Performed By: #### 1 9123-9, 2777-1, 93900-3 ####[facility]ORATORYCLIA [id number] [address] [facility] Chloride [Moles/Vol] 86 mmol/L Low 97-105 [facility] Comment on above: Order Comment: Shira feldman Type: BLOOD SPECIMENOrdering Facility: [facility] Address: [address] [place] [address] Performed By: #### 1 9123-9, 2777-1, 48358-0 ####[facility] LABORATORYCLIA [id number] [address] OF [facility] CO2 [Moles/Vol] 24 mmol/L Normal 22-30 [facility] Comment on above: Order Comment: Speci men Type: BLOOD SPECIMENOrdering Facility: [facility] Address: [address] [place] [address] Performed By: #### 1 9123-9, 2777-1, 21707-8 ####[facility]ORATORYCLIA [id number] [address] OF [facility] Creatinine [Mass/Vol] 0.53 mg/dL Low 0.73-1.22 [facility] Comment on above: Order Comment: Shira feldman Type: BLOOD SPECIMENOrdering Facility: [facility] Address: [address] [place] [address] Performed By: #### 1 9123-9, 2777-1, 43610-4 ####[facility] LABORATORYCLIA [id number] [address] ESTIMATED GLOMERULAR FILTRATION RATE 108 mL/min/1.73m??? Normal >=60 [facility] Comment on above: Order Comment: Speci men Type: BLOOD SPECIMENOrdering Facility: [facility] Address: [address] [place] [address] Result Comment: Luzmaria mated Glomerular Filtration Rate [...] GFR. Performed By: #### 1 9123-9, 2777-, 22323-6 ####[facility] LABORATORYCLIA [id number] [place] [address] [place] Glucose [Mass/Vol] 455 mg/dL High 74-99 [facility] Comment on above: Order Comment: Speci men Type: BLOOD SPECIMENOrdering Facility: [facility] Address: [address] [place] [address] Result Comment: The [place] [employer] (ADA) provides guidance for cutoff [...] Standards of Medical Care in Diabetes 2016, [place] [employer]. Diabetes Care. 2016.39(Suppl 1). Performed By: #### 1 9123-9, 2777-, 32557-1 ####[facility] LABORATORYCLIA [id number] [place] [address] [place] Potassium [Moles/Vol] 3.4 mmol/L Low 3.7-5.1 [facility] Comment on above: Order Comment: Speci men Type: BLOOD SPECIMENOrdering Facility: [facility] Address: [address] [address] Performed By: #### 1 9123-9, 2777-, 92862-4 ####[facility] LABORATORYCLIA [id number] [place] [address] [place] Sodium [Moles/Vol] 127 mmol/L Low 136-144 [facility] Comment on above: Order Comment: Speci men Type: BLOOD SPECIMENOrdering Facility: [facility] Address: [address] [address] Performed By: #### 1 9123-9, 2777-1, 56863-0 ####[facility] LABORATORYCLIA [id number] [address] [place] [facility] Urea nitrogen [Mass/Vol] 21 mg/dL Normal 9-24 [facility] Comment on above: Order Comment: Speci men Type: BLOOD SPECIMENOrdering Facility: [facility] Address: [address] [place] [address] Performed By: #### 1 9123-9, 2777-1, 00181-9 ####[facility] LABORATORYCLIA [id number] [address] [place] CASE MANAGEMon 08-10-2021 CASE MANAGEM Normal [facility] CBC W Auto Differential pane l (Bld)on 08-10-2021 Basophils (Bld) [#/Vol] 0.04 10*3/uL Normal <0.11 [facility] Comment on above: Order Comment: Speci men Type: BLOOD SPECIMENOrdering Facility: [facility] Address: [address] [place] [address] Performed By: #### 5 7021-8 ####[facility] LABORATORYCLIA [id number] [address] [place] [facility] Basophils/100 WBC (Bld) 0.4 % Normal [facility] Comment on above: Order Comment: Speci men Type: BLOOD SPECIMENOrdering Facility: [facility] Address: [address] [place] [address] Performed By: #### 5 7021-8 ####[facility] LABORATORYCLIA [id number] [address] [place] [facility] Differential cell count method Nom (Bld) Auto Normal [facility] Comment on above: Order Comment: Speci men Type: BLOOD SPECIMENOrdering Facility: [facility] Address: [address] [place] [address] Performed By: #### 5 7021-8 ####[facility] LABORATORYCLIA [id number] [address] [place] Eosinophils (Bld) [#/Vol] 0.11 10*3/uL Normal <0.46 [facility] Comment on above: Order Comment: Speci men Type: BLOOD SPECIMENOrdering Facility: [facility] Address: [address] [place] [address] Performed By: #### 5 7021-8 ####[facility] LABORATORYCLIA [id number] [address] [place] Eosinophils/100 WBC (Bld) 1.1 % Normal [facility] Comment on above: Order Comment: Speci men Type: BLOOD SPECIMENOrdering Facility: [facility] Address: 04 [place] [address] Performed By: #### 5 7021-8 ####[facility] LABORATORYCLIA [id number] [address] [place] Erythrocyte distribution width (RBC) [Ratio] 17.2 % High 11.5-15.0 [facility] Comment on above: Order Comment: Speci men Type: BLOOD SPECIMENOrdering Facility: [facility] Address: [address] [place] [address] Performed By: #### 5 7021-8 ####[facility] LABORATORYCLIA [id number] [address] [place] Hematocrit (Bld) [Volume fraction] 25.5 % Low 39.0-51.0 [facility] Comment on above: Order Comment: Speci men Type: BLOOD SPECIMENOrdering Facility: [facility] Address: [address] [place] [address] Performed By: #### 5 7021-8 ####[facility] LABORATORYCLIA [id number] [address] [place] Hemoglobin (Bld) [Mass/Vol] 7.9 g/dL Low 13.0-17.0 [facility] Comment on above: Order Comment: Speci men Type: BLOOD SPECIMENOrdering Facility: [facility] Address: [address] [place] [address] Performed By: #### 5 7021-8 ####[facility]ORATORYCLIA [id number] [address] IMMATURE GRAN % 0.4 % Normal [facility] Comment on above: Order Comment: Speci men Type: BLOOD SPECIMENOrdering Facility: [facility] Address: [address] [place] [address] Performed By: #### 5 7021-8 ####[facility] LABORATORYCLIA [id number] [address] IMMATURE GRAN ABS 0.04 k/uL Normal <0.10 [facility] Comment on above: Order Comment: Speci men Type: BLOOD SPECIMENOrdering Facility: [facility] Address: [address] [place] [address] Performed By: #### 5 7021-8 ####[facility] LABORATORYCLIA [id number] [address] Lymphocytes (Bld) [#/Vol] 1.66 10*3/uL Normal 1.00-4.00 [facility] Comment on above: Order Comment: Speci men Type: BLOOD SPECIMENOrdering Facility: [facility] Address: [address] [place] [address] Performed By: #### 5 7021-8 ####[facility]ORATORYCLIA [id number] [address] Lymphocytes/100 WBC (Bld) 16.2 % Normal [facility] Comment on above: Order Comment: Speci men Type: BLOOD SPECIMENOrdering Facility: [facility] Address: [address] [place] [address] Performed By: #### 5 7021-8 ####[facility]ORATORYCLIA [id number] [address] MCH (RBC) [Entitic mass] 28.5 pg Normal 26.0-34.0 [facility] Comment on above: Order Comment: Speci men Type: BLOOD SPECIMENOrdering Facility: [facility] Address: [address] [place] [address] Performed By: #### 5 7021-8 ####[facility]ORATORYCLIA [id number] [address] STATES OF [facility] MCHC (RBC) [Mass/Vol] 31.0 g/dL Normal 30.5-36.0 [facility] Comment on above: Order Comment: Speci men Type: BLOOD SPECIMENOrdering Facility: [facility] Address: [address] [place] [address] Performed By: #### 5 7021-8 ####[facility]ORATORYCLIA [id number] [address] STATES OF [facility] MCV (RBC) [Entitic vol] 92.1 fL Normal 80.0-100.0 [facility] Comment on above: Order Comment: Speci men Type: BLOOD SPECIMENOrdering Facility: [facility] Address: [address] [place] [address] Performed By: #### 5 7021-8 ####[facility]ORATORYCLIA [id number] [address] [place] Monocytes (Bld) [#/Vol] 0.51 10*3/uL Normal <0.87 [facility] Comment on above: Order Comment: Speci men Type: BLOOD SPECIMENOrdering Facility: [facility] Address: [address] [place] [address] Performed By: #### 5 7021-8 ####[facility]ORATORYCLIA [id number] [address] Monocytes/100 WBC (Bld) 5.0 % Normal [facility] Comment on above: Order Comment: Speci men Type: BLOOD SPECIMENOrdering Facility: [facility] Address: [address] [place] [address] Performed By: #### 5 7021-8 ####[facility]ORATORYCLIA [id number] [address] [place] Neutrophils (Bld) [#/Vol] 7.91 10*3/uL High 1.45-7.50 [facility] Comment on above: Order Comment: Speci men Type: BLOOD SPECIMENOrdering Facility: [facility] Address: [address] [place] [address] Performed By: #### 5 7021-8 ####[facility]ORATORYCLIA [id number] [address] Neutrophils/100 WBC (Bld) 76.9 % Normal [facility] Comment on above: Order Comment: Speci men Type: BLOOD SPECIMENOrdering Facility: [facility] Address: [address] [place] [address] Performed By: #### 5 7021-8 ####[facility]ORATORYCLIA [id number] [address] [place] Nucleated RBC (Bld) [#/Vol] 10*3/uL Normal <0.01 [facility] Comment on above: Order Comment: Speci men Type: BLOOD SPECIMENOrdering Facility: [facility] Address: [address] [place] [address] Performed By: #### 5 7021-8 ####[facility]ORATORYCLIA [id number] [address] Nucleated RBC/100 WBC (Bld) [Ratio] 0.0 /100 WBC Normal [facility] Comment on above: Order Comment: Speci men Type: BLOOD SPECIMENOrdering Facility: [facility] Address: [address] [place] [address] Performed By: #### 5 7021-8 ####[facility]ORATORYCLIA [id number] [address] [place] Platelet mean volume (Bld) [Entitic vol] 10.3 fL Normal 9.0-12.7 [facility] Comment on above: Order Comment: Speci men Type: BLOOD SPECIMENOrdering Facility: [facility] Address: [address] [place] [address] Performed By: #### 5 7021-8 ####[facility]ORATORYCLIA [id number] [address] OF [facility] Platelets (Bld) [#/Vol] 152 10*3/uL Normal 150-400 [facility] Comment on above: Order Comment: Speci men Type: BLOOD SPECIMENOrdering Facility: [facility] Address: [address] [place] [address] Performed By: #### 5 7021-8 ####[facility]ORATORYCLIA [id number] [address] OF [facility] RBC (Bld) [#/Vol] 2.77 10*6/uL Low 4.20-6.00 [facility] Comment on above: Order Comment: Speci men Type: BLOOD SPECIMENOrdering Facility: [facility] Address: [address] [place] [address] Performed By: #### 5 7021-8 ####[facility]ORATORYCLIA [id number] [address] WBC (Bld) [#/Vol] 10.27 10*3/uL Normal 3.70-11.00 [facility] Comment on above: Order Comment: Speci men Type: BLOOD SPECIMENOrdering Facility: [facility] Address: [address] [place] [address] Performed By: #### 5 7021-8 ####[facility]ORATORYCLIA [id number] [address] Magnesium SerPl-mCncon 08-10 Magnesium [Mass/Vol] 1.8 mg/dL Normal 1.7-2.3 [facility] Comment on above: Order Comment: Speci men Type: BLOOD SPECIMENOrdering Facility: [facility] Address: [address] [place] [address] Performed By: #### 1 9123-9, 2777-1, 02998-3 ####[facility]ORATORYCLIA [id number] [address] NURSING PROGon 08-10-2021 NURSING PROG Normal [facility] NURSING PROG Normal [facility] NUTRITIONon 08-10-2021 NUTRITION Normal [facility] Phosphate SerPl-mCncon 08-10 Phosphate [Mass/Vol] 3.7 mg/dL Normal 2.7-4.8 [facility] Comment on above: Order Comment: Speci men Type: BLOOD SPECIMENOrdering Facility: [facility] Address: [address] [place] [address] Performed By: #### 1 9123-9, 2777-, 05353-1 ####[facility]ORATORYCLIA [id number] [place] [address] [place] ALLIED HEALTHon 08-09-2021 ALLIED HEALTH Normal [facility] ANES POSTPROC EVALon 022 ANES POSTPROC EVAL Normal [facility] ANES PRE-OPon 08-09-2021 ANES PRE-OP Normal [facility] BRIEF OP NOTon 08-09-2021 BRIEF OP NOT Normal [facility] Basic metabolic 2000 panelon 08-09-2021 Anion gap [Moles/Vol] 8 mmol/L Low 9-18 [facility] Comment on above: Order Comment: Speci men Type: BLOOD SPECIMENOrdering Facility: [facility] Address: [address] [place] [address] Performed By: #### 2 4321-2, , 2776-05 ####[facility]ORATORYCLIA [id number] [place] [address] [place] Calcium [Mass/Vol] 9.2 mg/dL Normal 8.5-10.2 [facility] Comment on above: Order Comment: Speci men Type: BLOOD SPECIMENOrdering Facility: [facility] Address: [address] [place] [address] Performed By: #### 2 4321-2, , 2776-05 ####[facility]ORATORYCLIA [id number] [place] [address] [place] Chloride [Moles/Vol] 97 mmol/L Normal 97-105 [facility] Comment on above: Order Comment: Speci men Type: BLOOD SPECIMENOrdering Facility: [facility] Address: [address] [place] [address] Performed By: #### 2 4321-2, , 2776-05 ####[facility]ORATORYCLIA [id number] [address] STATES OF [facility] CO2 [Moles/Vol] 30 mmol/L Normal 22-30 [facility] Comment on above: Order Comment: Speci men Type: BLOOD SPECIMENOrdering Facility: [facility] Address: [address] [place] [address] Performed By: #### 2 4321-2, , 2776-05 ####[facility]ORATORYCLIA [id number] [address] OF [facility] Creatinine [Mass/Vol] 0.51 mg/dL Low 0.73-1.22 [facility] Comment on above: Order Comment: Speci men Type: BLOOD SPECIMENOrdering Facility: [facility] Address: [address] [place] [address] Performed By: #### 2 4321-2, , 2776-05 ####[facility]ORATORYCLIA [id number] [address] ESTIMATED GLOMERULAR FILTRATION RATE 110 mL/min/1.73m??? Normal >=60 [facility] Comment on above: Order Comment: Speci men Type: BLOOD SPECIMENOrdering Facility: [facility] Address: [address] [place] [address] Result Comment: Luzmaria mated Glomerular Filtration Rate [...] Performed By: #### 2 4321-2, , 2776-05 ####[facility]ORATORYCLIA [id number] [place] [address] [place] Glucose [Mass/Vol] 106 mg/dL High 74-99 [facility] Comment on above: Order Comment: Speci men Type: BLOOD SPECIMENOrdering Facility: [facility] Address: [address] [place], [place] [phone] Result Comment: The [place] [employer] (ADA) provides guidance for cutoff [...] Standards of Medical Care in Diabetes 2016, [place] [employer]. Diabetes Care. 2016.39(Suppl 1). Performed By: #### 2 4321-2, , 2776-05 ####[facility]ORATORYCLIA [id number] [place] [address] [place] Potassium [Moles/Vol] 4.1 mmol/L Normal 3.7-5.1 [facility] Comment on above: Order Comment: Speci men Type: BLOOD SPECIMENOrdering Facility: [facility] Address: [address] [place], [place] [phone] Performed By: #### 2 4321-2, , 2776-05 ####[facility]ORATORYCLIA [id number] [place] [address] [place] Sodium [Moles/Vol] 135 mmol/L Low 136-144 [facility] Comment on above: Order Comment: Speci men Type: BLOOD SPECIMENOrdering Facility: [facility] Address: [address] [place], [place] [phone] Performed By: #### 2 4321-2, , 2776-05 ####[facility]ORATORYCLIA [id number] [place] [address] [place] Urea nitrogen [Mass/Vol] 26 mg/dL High 9- [facility] Comment on above: Order Comment: Speci men Type: BLOOD SPECIMENOrdering Facility: [facility] Address: [address] [place] [address] Performed By: #### 2 4321-2, 77042-7, 277- ####[facility]ATORYCLIA [id number] [place] [address] [place] CBC W Auto Differential pane l (Bld)on 08-09-2021 Basophils (Bld) [#/Vol] 0.06 10*3/uL Normal <0.11 [facility] Comment on above: Order Comment: Speci men Type: BLOOD SPECIMENOrdering Facility: [facility] Address: [address] [place] [address] Performed By: #### 5 7021-8 ####[facility]ORATORYCLIA [id number] [address] [place] Basophils/100 WBC (Bld) 0.5 % Normal [facility] Comment on above: Order Comment: Speci men Type: BLOOD SPECIMENOrdering Facility: [facility] Address: [address] [place] [address] Performed By: #### 5 7021-8 ####[facility]ORATORYCLIA [id number] [address] STATES [facility] Differential cell count method Nom (Bld) Auto Normal [facility] Comment on above: Order Comment: Speci men Type: BLOOD SPECIMENOrdering Facility: [facility] Address: [address] [place] [address] Performed By: #### 5 7021-8 ####[facility]ORATORYCLIA [id number] [place] [address] [place] Eosinophils (Bld) [#/Vol] 0.42 10*3/uL Normal <0.46 [facility] Comment on above: Order Comment: Speci men Type: BLOOD SPECIMENOrdering Facility: [facility] Address: [address] [place] [address] Performed By: #### 5 7021-8 ####[facility]ORATORYCLIA [id number] [address] STATES OF [facility] Eosinophils/100 WBC (Bld) 3.8 % Normal [facility] Comment on above: Order Comment: Speci men Type: BLOOD SPECIMENOrdering Facility: [facility] Address: [address] [place] [address] Performed By: #### 5 7021-8 ####[facility]ORATORYCLIA [id number] [address] Erythrocyte distribution width (RBC) [Ratio] 17.6 % High 11.5-15.0 [facility] Comment on above: Order Comment: Speci men Type: BLOOD SPECIMENOrdering Facility: [facility] Address: [address] [place] [address] Performed By: #### 5 7021-8 ####[facility]ORATORYCLIA [id number] [address] Hematocrit (Bld) [Volume fraction] 29.3 % Low 39.0-51.0 [facility] Comment on above: Order Comment: Speci men Type: BLOOD SPECIMENOrdering Facility: [facility] Address: [address] [place] [address] Performed By: #### 5 7021-8 ####[facility]ORATORYCLIA [id number] [address] [place] Hemoglobin (Bld) [Mass/Vol] 9.0 g/dL Low 13.0-17.0 [facility] Comment on above: Order Comment: Speci men Type: BLOOD SPECIMENOrdering Facility: [facility] Address: [address] [place] [address] Performed By: #### 5 7021-8 ####[facility]ORATORYCLIA [id number] [address] [place] IMMATURE GRAN % 0.5 % Normal [facility] Comment on above: Order Comment: Speci men Type: BLOOD SPECIMENOrdering Facility: [facility] Address: [address] [place] [address] Performed By: #### 5 7021-8 ####[facility]ATORYCLIA [id number] [address] IMMATURE GRAN ABS 0.05 k/uL Normal <0.10 [facility] Comment on above: Order Comment: Speci men Type: BLOOD SPECIMENOrdering Facility: [facility] Address: [address] [place] [address] Performed By: #### 5 7021-8 ####[facility]ATORYCLIA [id number] [address] Lymphocytes (Bld) [#/Vol] 2.00 10*3/uL Normal 1.00-4.00 [facility] Comment on above: Order Comment: Speci men Type: BLOOD SPECIMENOrdering Facility: [facility] Address: [address] [place] [address] Performed By: #### 5 7021-8 ####[facility]ATORYCLIA [id number] [address] Lymphocytes/100 WBC (Bld) 18.1 % Normal [facility] Comment on above: Order Comment: Speci men Type: BLOOD SPECIMENOrdering Facility: [facility] Address: [address] [place] [address] Performed By: #### 5 7021-8 ####[facility]ATORYCLIA [id number] [address] STATES [facility] MCH (RBC) [Entitic mass] 28.1 pg Normal 26.0-34.0 [facility] Comment on above: Order Comment: Speci men Type: BLOOD SPECIMENOrdering Facility: [facility] Address: [address] [place] [address] Performed By: #### 5 7021-8 ####[facility]ATORYCLIA [id number] [address] STATES OF [facility] MCHC (RBC) [Mass/Vol] 30.7 g/dL Normal 30.5-36.0 [facility] Comment on above: Order Comment: Speci men Type: BLOOD SPECIMENOrdering Facility: [facility] Address: [address] [place] [address] Performed By: #### 5 7021-8 ####[facility]ATORYCLIA [id number] [address] MCV (RBC) [Entitic vol] 91.6 fL Normal 80.0-100.0 [facility] Comment on above: Order Comment: Speci men Type: BLOOD SPECIMENOrdering Facility: [facility] Address: [address] [place] [address] Performed By: #### 5 7021-8 ####[facility]ATORYCLIA [id number] [address] [place] Monocytes (Bld) [#/Vol] 0.68 10*3/uL Normal <0.87 [facility] Comment on above: Order Comment: Speci men Type: BLOOD SPECIMENOrdering Facility: [facility] Address: [address] [place] [address] Performed By: #### 5 7021-8 ####[facility]ATORYCLIA [id number] [address] Monocytes/100 WBC (Bld) 6.2 % Normal [facility] Comment on above: Order Comment: Speci men Type: BLOOD SPECIMENOrdering Facility: [facility] Address: [address] [place] [address] Performed By: #### 5 7021-8 ####[facility]ATORYCLIA [id number] [address] [place] Neutrophils (Bld) [#/Vol] 7.82 10*3/uL High 1.45-7.50 [facility] Comment on above: Order Comment: Speci men Type: BLOOD SPECIMENOrdering Facility: [facility] Address: [address] [place] [address] Performed By: #### 5 7021-8 ####[facility]ATORYCLIA [id number] [address] Neutrophils/100 WBC (Bld) 70.9 % Normal [facility] Comment on above: Order Comment: Speci men Type: BLOOD SPECIMENOrdering Facility: [facility] Address: [address] [place] [address] Performed By: #### 5 7021-8 ####[facility]ATORYCLIA [id number] [address] Nucleated RBC (Bld) [#/Vol] 10*3/uL Normal <0.01 [facility] Comment on above: Order Comment: Speci men Type: BLOOD SPECIMENOrdering Facility: [facility] Address: [address] [place] [address] Performed By: #### 5 7021-8 ####[facility]ATORYCLIA [id number] [address] Nucleated RBC/100 WBC (Bld) [Ratio] 0.0 /100 WBC Normal [facility] Comment on above: Order Comment: Speci men Type: BLOOD SPECIMENOrdering Facility: [facility] Address: [address] [place] [address] Performed By: #### 5 7021-8 ####[facility]ATORYCLIA [id number] [address] Platelet mean volume (Bld) [Entitic vol] 10.1 fL Normal 9.0-12.7 [facility] Comment on above: Order Comment: Speci men Type: BLOOD SPECIMENOrdering Facility: [facility] Address: [address] [place] [address] Performed By: #### 5 7021-8 ####[facility]ATORYCLIA [id number] [address] [place] Platelets (Bld) [#/Vol] 160 10*3/uL Normal 150-400 [facility] Comment on above: Order Comment: Speci men Type: BLOOD SPECIMENOrdering Facility: [facility] Address: [address] [place] [address] Performed By: #### 5 7021-8 ####[facility]ATORYCLIA [id number] [place] [address] [place] RBC (Bld) [#/Vol] 3.20 10*6/uL Low 4.20-6.00 [facility] Comment on above: Order Comment: Speci men Type: BLOOD SPECIMENOrdering Facility: [facility] Address: [address] [place] [address] Performed By: #### 5 7021-8 ####[facility]ATORYCLIA [id number] [address] [place] WBC (Bld) [#/Vol] 11.03 10*3/uL High 3.70-11.00 [facility] Comment on above: Order Comment: Speci men Type: BLOOD SPECIMENOrdering Facility: [facility] Address: [address] [place] [address] Performed By: #### 5 7021-8 ####[facility]ATORYCLIA [id number] [address] [place] CONSULT PROGon 08-09-2021 CONSULT PROG Normal [facility] CT BRAIN WO IVCONon 08-10-[address] BRAIN WO IVCON Normal [facility] CT BRAIN WO IVCON Normal [facility] Magnesium SerPl-mCncon 08-09 Magnesium [Mass/Vol] 2.0 mg/dL Normal 1.7-2.3 [facility] Comment on above: Order Comment: Speci men Type: BLOOD SPECIMENOrdering Facility: [facility] Address: [address] [place] [address] Performed By: #### 2 4321-2, 22739-6, 2777-1 ####[facility]ATORYCLIA [id number] [address] [place] NURSING PROGon 08-09-2021 NURSING PROG Normal [facility] OPERATIVE NOon 08-09-2021 OPERATIVE NO Normal [facility] PT panel Coag (PPP)on 2021 INR Coag (PPP) [Relative time] 1.1 {INR} Normal 0.9-1.3 [facility] Comment on above: Order Comment: Shira feldman Type: BLOOD SPECIMENOrdering Facility: [facility] Address: [address] [place], [place] [address] Result Comment: Yris min K Antagonist (VKA) Therapeutic Range: INR 2 to 3 (Target INR of 2.5)Note: For patients treated with VKA drugs, such as warfarin, the [employer] 2012 Guideline recommends [...] of 3).Jeffy GH, et al. Chest 2012, 141:7S-47SAlba RA, et al. [facility] 2017, 70: 252-289 Performed By: #### 3 4528-0, 84492-2 ####[facility] LABORATORYCLIA [id number] [address] [place] PT Coag (PPP) [Time] 11.7 s Normal 9.7-13.0 [facility] Comment on above: Order Comment: Shira feldman Type: BLOOD SPECIMENOrdering Facility: [facility] Address: [address] [place] [address] Performed By: #### 3 4528-0, 79905-5 ####[facility] LABORATORYCLIA [id number] [place] [id number] [place] Phosphate SerPl-mCncon 08-09 Phosphate [Mass/Vol] 4.0 mg/dL Normal 2.7-4.8 [facility] Comment on above: Order Comment: Speci men Type: BLOOD SPECIMENOrdering Facility: [facility] Address: [address] [place] [address] Performed By: #### 2 4321-2, 13347-1, 2777-1 ####[facility] LABORATORYCLIA [id number] [address] THERAPY NTon 08-09-2021 THERAPY NT [facility] THERAPY NT Normal [facility] TYPE AND SCREENon 08-09-2021 ABO O [facility] Comment on above: Order Comment: Speci men Type: BLOOD SPECIMENOrdering Facility: [facility] Address: [address] [place] [address] Performed By: #### T SCR ####[facility] BLOOD BANKCLIA [id number] [address] HISTORICAL AB SCR STATUS Negative [facility] Comment on above: Order Comment: Speci men Type: BLOOD SPECIMENOrdering Facility: [facility] Address: [address] [place] [address] Performed By: #### T SCR ####[facility] BLOOD BANKCLIA [id number] [address] Rh Nom (Bld) Positive [facility] Comment on above: Order Comment: Speci men Type: BLOOD SPECIMENOrdering Facility: [facility] Address: [address] [place] [address] Performed By: #### T SCR ####[facility] BLOOD BANKCLIA [id number] [address] TYPE AND SCREEN EXPIRATION 08/12/2021 23:59 Normal [facility] Comment on above: Order Comment: Speci men Type: BLOOD SPECIMENOrdering Facility: [facility] Address: [address] [place] [address] Performed By: #### T SCR ####[facility] BLOOD BANKCLIA [id number] [address] XR ABD 2V SUPINE W UPR/DECUB /CTLon 08-09-2021 XR ABD 2V SUPINE W UPR/DECUB/CTL Normal [facility] XR CHEST 1V FRONTALon 2021 XR CHEST 1V FRONTAL Normal [facility] XR NECK SOFT TISSUE 2V AP/LA Ton 08-09-2021 XR NECK SOFT TISSUE 2V AP/LAT Normal [facility] XR SKULL 2V AP/LATon 022 XR SKULL 2V AP/LAT Normal [facility] aPTT PPPon 08-09-2021 aPTT Coag (PPP) [Time] 26.8 s Normal 23.0-32.[address] [facility] Comment on above: Order Comment: Speci men Type: BLOOD SPECIMENOrdering Facility: [facility] Address: [address] [place] [address] Performed By: #### 3 4528-0, 27528-1 ####[facility] LABORATORYCLIA [id number] [address] CASE MANAGEMon 08-08-2021 CASE MANAGEM Normal [facility] CBC W Auto Differential pane l (Bld)on 08-08-2021 Basophils (Bld) [#/Vol] 0.05 10*3/uL Normal <0.11 [facility] Comment on above: Order Comment: Speci men Type: BLOOD SPECIMENOrdering Facility: [facility] Address: [address] [place] [address] Performed By: #### 5 7021-8 ####[facility] LABORATORYCLIA [id number] [address] Basophils/100 WBC (Bld) 0.5 % Normal [facility] Comment on above: Order Comment: Speci men Type: BLOOD SPECIMENOrdering Facility: [facility] Address: [address] [place] [address] Performed By: #### 5 7021-8 ####[facility] LABORATORYCLIA [id number] [address] [place] Differential cell count method Nom (Bld) Auto Normal [facility] Comment on above: Order Comment: Speci men Type: BLOOD SPECIMENOrdering Facility: [facility] Address: [address] [place] [address] Performed By: #### 5 7021-8 ####[facility] LABORATORYCLIA [id number] [address] [place] Eosinophils (Bld) [#/Vol] 0.17 10*3/uL Normal <0.46 [facility] Comment on above: Order Comment: Speci men Type: BLOOD SPECIMENOrdering Facility: [facility] Address: [address] [place] [address] Performed By: #### 5 7021-8 ####[facility] LABORATORYCLIA [id number] [address] Eosinophils/100 WBC (Bld) 1.6 % Normal [facility] Comment on above: Order Comment: Speci men Type: BLOOD SPECIMENOrdering Facility: [facility] Address: [address] [place] [address] Performed By: #### 5 7021-8 ####[facility] LABORATORYCLIA [id number] [address] [place] Erythrocyte distribution width (RBC) [Ratio] 17.8 % High 11.5-15.0 [facility] Comment on above: Order Comment: Speci men Type: BLOOD SPECIMENOrdering Facility: [facility] Address: [address] [place] [address] Performed By: #### 5 7021-8 ####[facility] LABORATORYCLIA [id number] [address] [place] Hematocrit (Bld) [Volume fraction] 29.6 % Low 39.0-51.0 [facility] Comment on above: Order Comment: Speci men Type: BLOOD SPECIMENOrdering Facility: [facility] Address: [address] [place] [address] Performed By: #### 5 7021-8 ####[facility]ORATORYCLIA [id number] [address] [place] Hemoglobin (Bld) [Mass/Vol] 9.0 g/dL Low 13.0-17.0 [facility] Comment on above: Order Comment: Speci men Type: BLOOD SPECIMENOrdering Facility: [facility] Address: [address] [place] [address] Performed By: #### 5 7021-8 ####[facility] LABORATORYCLIA [id number] [address] IMMATURE GRAN % 0.5 % Normal [facility] Comment on above: Order Comment: Speci men Type: BLOOD SPECIMENOrdering Facility: [facility] Address: [address] [place] [address] Performed By: #### 5 7021-8 ####[facility] LABORATORYCLIA [id number] [address] IMMATURE GRAN ABS 0.05 k/uL Normal <0.10 [facility] Comment on above: Order Comment: Speci men Type: BLOOD SPECIMENOrdering Facility: [facility] Address: [address] [place] [address] Performed By: #### 5 7021-8 ####[facility] LABORATORYCLIA [id number] [address] [place] Lymphocytes (Bld) [#/Vol] 1.93 10*3/uL Normal 1.00-4.00 [facility] Comment on above: Order Comment: Speci men Type: BLOOD SPECIMENOrdering Facility: [facility] Address: [address] [place] [address] Performed By: #### 5 7021-8 ####[facility]ORATORYCLIA [id number] [address] [place] Lymphocytes/100 WBC (Bld) 18.2 % Normal [facility] Comment on above: Order Comment: Speci men Type: BLOOD SPECIMENOrdering Facility: [facility] Address: [address] [place] [address] Performed By: #### 5 7021-8 ####[facility] LABORATORYCLIA [id number] [address] MCH (RBC) [Entitic mass] 28.1 pg Normal 26.0-34.0 [facility] Comment on above: Order Comment: Speci men Type: BLOOD SPECIMENOrdering Facility: [facility] Address: [address] [place] [address] Performed By: #### 5 7021-8 ####[facility] LABORATORYCLIA [id number] [address] MCHC (RBC) [Mass/Vol] 30.4 g/dL Low 30.5-36.0 [facility] Comment on above: Order Comment: Speci men Type: BLOOD SPECIMENOrdering Facility: [facility] Address: [address] [place] [address] Performed By: #### 5 7021-8 ####[facility] LABORATORYCLIA [id number] [address] MCV (RBC) [Entitic vol] 92.5 fL Normal 80.0-100.0 [facility] Comment on above: Order Comment: Speci men Type: BLOOD SPECIMENOrdering Facility: [facility] Address: [address] [place] [address] Performed By: #### 5 7021-8 ####[facility] LABORATORYCLIA [id number] [address] Monocytes (Bld) [#/Vol] 0.75 10*3/uL Normal <0.87 [facility] Comment on above: Order Comment: Speci men Type: BLOOD SPECIMENOrdering Facility: [facility] Address: [address] [place] [address] Performed By: #### 5 7021-8 ####[facility] LABORATORYCLIA [id number] [address] [place] Monocytes/100 WBC (Bld) 7.1 % Normal [facility] Comment on above: Order Comment: Speci men Type: BLOOD SPECIMENOrdering Facility: [facility] Address: [address] [place] [address] Performed By: #### 5 7021-8 ####[facility] LABORATORYCLIA [id number] [place] [address] [place] Neutrophils (Bld) [#/Vol] 7.65 10*3/uL High 1.45-7.50 [facility] Comment on above: Order Comment: Speci men Type: BLOOD SPECIMENOrdering Facility: [facility] Address: [address] [place] [address] Performed By: #### 5 7021-8 ####[facility] LABORATORYCLIA [id number] [address] [place] Neutrophils/100 WBC (Bld) 72.1 % Normal [facility] Comment on above: Order Comment: Speci men Type: BLOOD SPECIMENOrdering Facility: [facility] Address: [address] [place] [address] Performed By: #### 5 7021-8 ####[facility] LABORATORYCLIA [id number] [place] [address] [place] Nucleated RBC (Bld) [#/Vol] 10*3/uL Normal <0.01 [facility] Comment on above: Order Comment: Speci men Type: BLOOD SPECIMENOrdering Facility: [facility] Address: [address] [place] [address] Performed By: #### 5 7021-8 ####[facility] LABORATORYCLIA [id number] [address] [place] Nucleated RBC/100 WBC (Bld) [Ratio] 0.0 /100 WBC Normal [facility] Comment on above: Order Comment: Speci men Type: BLOOD SPECIMENOrdering Facility: [facility] Address: [address] [place] [address] Performed By: #### 5 7021-8 ####[facility] LABORATORYCLIA [id number] [address] [place] [facility] Platelet mean volume (Bld) [Entitic vol] 9.8 fL Normal 9.0-12.7 [facility] Comment on above: Order Comment: Speci men Type: BLOOD SPECIMENOrdering Facility: [facility] Address: [address] [place] [address] Performed By: #### 5 7021-8 ####[facility] LABORATORYCLIA [id number] [address] [place] Platelets (Bld) [#/Vol] 175 10*3/uL Normal 150-400 [facility] Comment on above: Order Comment: Speci men Type: BLOOD SPECIMENOrdering Facility: [facility] Address: [address] [place] [address] Performed By: #### 5 7021-8 ####[facility] LABORATORYCLIA [id number] [address] [place] [facility] RBC (Bld) [#/Vol] 3.20 10*6/uL Low 4.20-6.00 [facility] Comment on above: Order Comment: Speci men Type: BLOOD SPECIMENOrdering Facility: [facility] Address: [address] [place] [address] Performed By: #### 5 7021-8 ####[facility] LABORATORYCLIA [id number] [address] [place] WBC (Bld) [#/Vol] 10.60 10*3/uL Normal 3.70-11.00 [facility] Comment on above: Order Comment: Speci men Type: BLOOD SPECIMENOrdering Facility: [facility] Address: [address] [place] [address] Performed By: #### 5 7021-8 ####[facility] LABORATORYCLIA [id number] [address] [place] BRAIN WO IVCONon 08-09-[address] BRAIN WO IVCON Normal [facility] NURSING PROGon 08-08-2021 NURSING PROG Normal [facility] Prealbumin [Mass/Vol]on Prealbumin Nephelometry [Mass/Vol] 29 mg/dL Normal 17-36 [facility] Comment on above: Order Comment: Speci men Type: BLOOD SPECIMENOrdering Facility: [facility] Address: [address] [place] [address] Performed By: #### 1 4338-8 ####[facility] LABORATORYCLIA [id number] [place] [address] [place] SARS-CoV-2 RNA Resp Ql MEGAN+p robeon 08-08-2021 SARS-CoV-2 (COVID-19) RNA MEGAN+probe Ql (Resp) COVID 19 RESULT: SARS-CoV-2 (Agent of COVID-19) Not Detected by RT-PCR or equivalent method. This test has been authorized by FDA under an Emergency Use Authorization (EUA). Normal [facility] Comment on above: Performed By: #### 9 4500-6 ####[facility] LABORATORYCLIA [id number] [place] [address] [place] ALLIED HEALTHon 08-07-2021 ALLIED HEALTH Normal [facility] Basic metabolic 2000 panelon 08-07-2021 Anion gap [Moles/Vol] 9 mmol/L Normal 9-18 [facility] Comment on above: Order Comment: Speci men Type: BLOOD SPECIMENOrdering Facility: [facility] Address: [address] [place] [address] Performed By: #### 2 4321-2, 2777-1, 93145-3, HFP ####[facility] LABORATORYCLIA [id number] [address] [place] Calcium [Mass/Vol] 9.4 mg/dL Normal 8.5-10.2 [facility] Comment on above: Order Comment: Speci men Type: BLOOD SPECIMENOrdering Facility: [facility] Address: [address] [place] [address] Performed By: #### 2 4321-2, 277-, , HFP ####[facility] LABORATORYCLIA [id number] [place] [address] [place] Chloride [Moles/Vol] 98 mmol/L Normal 97-105 [facility] Comment on above: Order Comment: Speci men Type: BLOOD SPECIMENOrdering Facility: [facility] Address: [address] [place] [address] Performed By: #### 2 4321-2, 277-, , HFP ####[facility] LABORATORYCLIA [id number] [place] [address] [place] CO2 [Moles/Vol] 29 mmol/L Normal 22-30 [facility] Comment on above: Order Comment: Speci men Type: BLOOD SPECIMENOrdering Facility: [facility] Address: [address] [place] [address] Performed By: #### 2 4321-2, 2776-05, , HFP ####[facility] [id number] [address] STATES OF [facility] Creatinine [Mass/Vol] 0.67 mg/dL Low 0.73-1.22 [facility] Comment on above: Order Comment: Speci men Type: BLOOD SPECIMENOrdering Facility: [facility] Address: [address] [place] [address] Performed By: #### 2 4321-2, 27711-04, , HFP ####[facility] LABORATORYCLIA [id number] [address] ESTIMATED GLOMERULAR FILTRATION RATE 101 mL/min/1.73m??? Normal >=60 [facility] Comment on above: Order Comment: Speci men Type: BLOOD SPECIMENOrdering Facility: [facility] Address: [address] [place] [address] Result Comment: Luzmaria mated Glomerular Filtration Rate [...] GFR. Performed By: #### 2 4321-2, 2776-05, , [facility] ####[facility] LABORATORYCLIA [id number] [place] [address] [place] Glucose [Mass/Vol] 117 mg/dL High 74-99 [facility] Comment on above: Order Comment: Shira feldman Type: BLOOD SPECIMENOrdering Facility: [facility] Address: [address] [place] [id number] Result Comment: The [place] [employer] (ADA) provides guidance for cutoff [...] Standards of Medical Care in Diabetes 2016, [place] [employer]. Diabetes Care. 2016.39(Suppl 1). Performed By: #### 2 4321-2, 2776-05, , [facility] ####[facility] LABORATORYCLIA [id number] [place] [id number] [place] Potassium [Moles/Vol] 4.1 mmol/L Normal 3.7-5.1 [facility] Comment on above: Order Comment: Shira feldman Type: BLOOD SPECIMENOrdering Facility: [facility] Address: [address] [place] [address] Performed By: #### 2 4321-2, 2776-05, , [facility] ####[facility] LABORATORYCLIA [id number] [place] [address] [place] Sodium [Moles/Vol] 136 mmol/L Normal 136-144 [facility] Comment on above: Order Comment: Speci men Type: BLOOD SPECIMENOrdering Facility: [facility] Address: [address] [place], [place] [address] Performed By: #### 2 4321-2, 2776-, , [facility] ####[facility] LABORATORYCLIA [id number] [place] [address] [place] [facility] Urea nitrogen [Mass/Vol] 31 mg/dL High 9-24 [facility] Comment on above: Order Comment: Speci men Type: BLOOD SPECIMENOrdering Facility: [facility] Address: [address] [place] [address] Performed By: #### 2 4321-2, 2776-05, , [facility] ####[facility] LABORATORYCLIA [id number] [address] [place] CBC W Auto Differential pane l (Bld)on 08-07-2021 Basophils (Bld) [#/Vol] 0.03 10*3/uL Normal <0.11 [facility] Comment on above: Order Comment: Speci men Type: BLOOD SPECIMENOrdering Facility: [facility] Address: [address] [place] [address] Performed By: #### 5 7021-8 ####[facility] LABORATORYCLIA [id number] [address] [place] Basophils/100 WBC (Bld) 0.3 % Normal [facility] Comment on above: Order Comment: Speci men Type: BLOOD SPECIMENOrdering Facility: [facility] Address: [address] [place] [address] Performed By: #### 5 7021-8 ####[facility] LABORATORYCLIA [id number] [address] STATES [facility] Differential cell count method Nom (Bld) Auto Normal [facility] Comment on above: Order Comment: Speci men Type: BLOOD SPECIMENOrdering Facility: [facility] Address: [address] [place] [address] Performed By: #### 5 7021-8 ####[facility]ATORYCLIA [id number] [address] STATES OF [facility] Eosinophils (Bld) [#/Vol] 0.16 10*3/uL Normal <0.46 [facility] Comment on above: Order Comment: Speci men Type: BLOOD SPECIMENOrdering Facility: [facility] Address: [address] [place] [address] Performed By: #### 5 7021-8 ####[facility]ATORYCLIA [id number] [address] Eosinophils/100 WBC (Bld) 1.6 % Normal [facility] Comment on above: Order Comment: Speci men Type: BLOOD SPECIMENOrdering Facility: [facility] Address: [address] [place] [address] Performed By: #### 5 7021-8 ####[facility] LABORATORYCLIA [id number] [address] Erythrocyte distribution width (RBC) [Ratio] 18.1 % High 11.5-15.0 [facility] Comment on above: Order Comment: Speci men Type: BLOOD SPECIMENOrdering Facility: [facility] Address: [address] [place] [address] Performed By: #### 5 7021-8 ####[facility] LABORATORYCLIA [id number] [address] Hematocrit (Bld) [Volume fraction] 30.6 % Low 39.0-51.0 [facility] Comment on above: Order Comment: Speci men Type: BLOOD SPECIMENOrdering Facility: [facility] Address: [address] [place] [address] Performed By: #### 5 7021-8 ####[facility] LABORATORYCLIA [id number] [address] Hemoglobin (Bld) [Mass/Vol] 9.4 g/dL Low 13.0-17.0 [facility] Comment on above: Order Comment: Speci men Type: BLOOD SPECIMENOrdering Facility: [facility] Address: [address] [place] [address] Performed By: #### 5 7021-8 ####[facility]ORYCLIA [id number] [address] IMMATURE GRAN % 0.4 % Normal [facility] Comment on above: Order Comment: Speci men Type: BLOOD SPECIMENOrdering Facility: [facility] Address: [address] [place] [address] Performed By: #### 5 7021-8 ####[facility] LABORATORYCLIA [id number] [address] IMMATURE GRAN ABS 0.04 k/uL Normal <0.10 [facility] Comment on above: Order Comment: Speci men Type: BLOOD SPECIMENOrdering Facility: [facility] Address: [address] [place] [address] Performed By: #### 5 7021-8 ####[facility] LABORATORYCLIA [id number] [address] Lymphocytes (Bld) [#/Vol] 2.05 10*3/uL Normal 1.00-4.00 [facility] Comment on above: Order Comment: Speci men Type: BLOOD SPECIMENOrdering Facility: [facility] Address: [address] [place] [address] Performed By: #### 5 7021-8 ####[facility] LABORATORYCLIA [id number] [address] Lymphocytes/100 WBC (Bld) 20.2 % Normal [facility] Comment on above: Order Comment: Speci men Type: BLOOD SPECIMENOrdering Facility: [facility] Address: [address] [place] [address] Performed By: #### 5 7021-8 ####[facility]ORYCLIA [id number] [address] MCH (RBC) [Entitic mass] 28.8 pg Normal 26.0-34.0 [facility] Comment on above: Order Comment: Speci men Type: BLOOD SPECIMENOrdering Facility: [facility] Address: [address] [place] [address] Performed By: #### 5 7021-8 ####[facility] LABORATORYCLIA [id number] [address] [place] [facility] MCHC (RBC) [Mass/Vol] 30.7 g/dL Normal 30.5-36.0 [facility] Comment on above: Order Comment: Speci men Type: BLOOD SPECIMENOrdering Facility: [facility] Address: [address] [place] [address] Performed By: #### 5 7021-8 ####[facility] LABORATORYCLIA [id number] [address] STATES OF [facility] MCV (RBC) [Entitic vol] 93.9 fL Normal 80.0-100.0 [facility] Comment on above: Order Comment: Speci men Type: BLOOD SPECIMENOrdering Facility: [facility] Address: [address] [place] [address] Performed By: #### 5 7021-8 ####[facility] LABORATORYCLIA [id number] [address] Monocytes (Bld) [#/Vol] 0.64 10*3/uL Normal <0.87 [facility] Comment on above: Order Comment: Speci men Type: BLOOD SPECIMENOrdering Facility: [facility] Address: [address] [place] [address] Performed By: #### 5 7021-8 ####[facility] LABORATORYCLIA [id number] [address] Monocytes/100 WBC (Bld) 6.3 % Normal [facility] Comment on above: Order Comment: Speci men Type: BLOOD SPECIMENOrdering Facility: [facility] Address: [address] [place] [address] Performed By: #### 5 7021-8 ####[facility] LABORATORYCLIA [id number] [place] [address] [place] Neutrophils (Bld) [#/Vol] 7.22 10*3/uL Normal 1.45-7.50 [facility] Comment on above: Order Comment: Speci men Type: BLOOD SPECIMENOrdering Facility: [facility] Address: [address] [place] [address] Performed By: #### 5 7021-8 ####[facility] LABORATORYCLIA [id number] [address] [place] Neutrophils/100 WBC (Bld) 71.2 % Normal [facility] Comment on above: Order Comment: Speci men Type: BLOOD SPECIMENOrdering Facility: [facility] Address: [address] [place] [address] Performed By: #### 5 7021-8 ####[facility] LABORATORYCLIA [id number] [address] [place] Nucleated RBC (Bld) [#/Vol] 10*3/uL Normal <0.01 [facility] Comment on above: Order Comment: Speci men Type: BLOOD SPECIMENOrdering Facility: [facility] Address: [address] [place] [address] Performed By: #### 5 7021-8 ####[facility] LABORATORYCLIA [id number] [address] [place] Nucleated RBC/100 WBC (Bld) [Ratio] 0.0 /100 WBC Normal [facility] Comment on above: Order Comment: Speci men Type: BLOOD SPECIMENOrdering Facility: [facility] Address: [address] [place] [address] Performed By: #### 5 7021-8 ####[facility] LABORATORYCLIA [id number] [address] [place] Platelet mean volume (Bld) [Entitic vol] 9.9 fL Normal 9.0-12.7 [facility] Comment on above: Order Comment: Speci men Type: BLOOD SPECIMENOrdering Facility: [facility] Address: [address] [place] [address] Performed By: #### 5 7021-8 ####[facility] LABORATORYCLIA [id number] [address] Platelets (Bld) [#/Vol] 227 10*3/uL Normal 150-400 [facility] Comment on above: Order Comment: Speci men Type: BLOOD SPECIMENOrdering Facility: [facility] Address: [address] [place] [address] Performed By: #### 5 7021-8 ####[facility] LABORATORYCLIA [id number] [address] OF [facility] RBC (Bld) [#/Vol] 3.26 10*6/uL Low 4.20-6.00 [facility] Comment on above: Order Comment: Speci men Type: BLOOD SPECIMENOrdering Facility: [facility] Address: [address] [place] [address] Performed By: #### 5 7021-8 ####[facility] LABORATORYCLIA [id number] [address] WBC (Bld) [#/Vol] 10.14 10*3/uL Normal 3.70-11.00 [facility] Comment on above: Order Comment: Speci men Type: BLOOD SPECIMENOrdering Facility: [facility] Address: [address] [place] [address] Performed By: #### 5 7021-8 ####[facility] LABORATORYCLIA [id number] [address] BRAIN WO IVCONon 08-08-19 CT BRAIN WO IVCON Normal [facility] HEPATIC FUNCTION PNLon 08-07 Albumin [Mass/Vol] 3.6 g/dL Low 3.9-4.9 [facility] Comment on above: Order Comment: Speci men Type: BLOOD SPECIMENOrdering Facility: [facility] Address: [address] [place] [address] Performed By: #### 2 4321-2, 2776-, , HFP ####[facility] LABORATORYCLIA [id number] [address] ALP [Catalytic activity/Vol] 124 U/L High 38-113 [facility] Comment on above: Order Comment: Speci men Type: BLOOD SPECIMENOrdering Facility: [facility] Address: [address] [place] [address] Performed By: #### 2 4321-2, 2776-05, , HFP ####[facility] LABORATORYCLIA [id number] [address] STATES OF [facility] ALT With P-5'-P [Catalytic activity/Vol] 29 U/L Normal 10-54 [facility] Comment on above: Order Comment: Speci men Type: BLOOD SPECIMENOrdering Facility: [facility] Address: [address] [place] [address] Performed By: #### 2 4321-2, 2776-05, , HFP ####[facility] LABORATORYCLIA [id number] [address] AST With P-5'-P [Catalytic activity/Vol] 18 U/L Normal 14-40 [facility] Comment on above: Order Comment: Speci men Type: BLOOD SPECIMENOrdering Facility: [facility] Address: [address] [place] [address] Performed By: #### 2 4321-2, 2776-05, , HFP ####[facility] LABORATORYCLIA [id number] [address] Bilirubin [Mass/Vol] 0.3 mg/dL Normal 0.2-1.3 [facility] Comment on above: Order Comment: Speci men Type: BLOOD SPECIMENOrdering Facility: [facility] Address: [address] [place] [address] Performed By: #### 2 4321-2, 2776-, , HFP ####[facility] LABORATORYCLIA [id number] [place] [address] [place] Bilirubin.conjugated [Mass/Vol] mg/dL Normal <0.2 [facility] Comment on above: Order Comment: Speci men Type: BLOOD SPECIMENOrdering Facility: [facility] Address: [address] [place] [address] Performed By: #### 2 4321-2, 2777-, , HFP ####[facility] LABORATORYCLIA [id number] [address] [place] Protein [Mass/Vol] 6.4 g/dL Normal 6.3-8.0 [facility] Comment on above: Order Comment: Speci men Type: BLOOD SPECIMENOrdering Facility: [facility] Address: [address] [place] [address] Performed By: #### 2 4321-2, 2777, , HFP ####[facility] LABORATORYCLIA [id number] [address] OF [place] Magnesium SerPl-ncon 08-07 Magnesium [Mass/Vol] 2.3 mg/dL Normal 1.7-2.3 [facility] Comment on above: Order Comment: Speci men Type: BLOOD SPECIMENOrdering Facility: [facility] Address: [address] [place] [address] Performed By: #### 2 4321-2, 2777, , HFP ####[facility] LABORATORYCLIA [id number] [place] [address] [place] NURSING PROGon 08-07-2021 NURSING PROG Normal [facility] Phosphate SerPl-mCncon 08-07 Phosphate [Mass/Vol] 3.5 mg/dL Normal 2.7-4.8 [facility] Comment on above: Order Comment: Speci men Type: BLOOD SPECIMENOrdering Facility: [facility] Address: [address] [place], [place] [address] Performed By: #### 2 4321-2, 2776-, , HFP ####[facility] LABORATORYCLIA [id number] [place] [address] [place] ANES POSTPROC EVALon 022 ANES POSTPROC EVAL Normal [facility] Basic metabolic 2000 panelon 08-06-2021 Anion gap [Moles/Vol] 11 mmol/L Normal 9-18 [facility] Comment on above: Order Comment: Speci men Type: BLOOD SPECIMENOrdering Facility: [facility] Address: [address] [place] [address] Performed By: #### 2 4321-2, 2776-05, ####[facility] LABORATORYCLIA [id number] [place] [address] [place] Calcium [Mass/Vol] 8.2 mg/dL Low 8.5-10.2 [facility] Comment on above: Order Comment: Speci men Type: BLOOD SPECIMENOrdering Facility: [facility] Address: [address] [place] [address] Performed By: #### 2 4321-2, 2776-05, ####[facility] LABORATORYCLIA [id number] [place] [address] [place] Chloride [Moles/Vol] 100 mmol/L Normal 97-105 [facility] Comment on above: Order Comment: Speci men Type: BLOOD SPECIMENOrdering Facility: [facility] Address: [address] [address] Performed By: #### 2 4321-2, 2776-05, ####[facility]ORATORYCLIA [id number] [place] [address] [place] CO2 [Moles/Vol] 23 mmol/L Normal 22-30 [facility] Comment on above: Order Comment: Speci men Type: BLOOD SPECIMENOrdering Facility: [facility] Address: [address] [address] Performed By: #### 2 4321-2, 2776-05, ####[facility]ITALCLIA [id number] [place] [address] [place] Creatinine [Mass/Vol] 0.55 mg/dL Low 0.73-1.22 [facility] Comment on above: Order Comment: Shira feldman Type: BLOOD SPECIMENOrdering Facility: [facility] Address: [address] [place], [place] [phone] Performed By: #### 2 4321-2, 2776-05, ####[facility]OSPITALCLIA [id number] [place] [address] [facility] [place] ESTIMATED GLOMERULAR FILTRATION RATE 107 mL/min/1.73m??? Normal >=60 [facility] Comment on above: Order Comment: Shira francia Type: BLOOD SPECIMENOrdering Facility: [facility] Address: [address] [place], [place] [phone] Result Comment: Luzmaria mated Glomerular Filtration Rate [...] GFR. Performed By: #### 2 4321-2, 2776-05, ####[facility] HOSPITALIA [id number] [place] [id number] [place] Glucose [Mass/Vol] 275 mg/dL High 74-99 [facility] Comment on above: Order Comment: Shira francia Type: BLOOD SPECIMENOrdering Facility: [facility] Address: [address] [phone] Result Comment: The [place] [employer] (ADA) provides guidance for cutoff [...] Standards of Medical Care in Diabetes 2016, [place] [employer]. Diabetes Care. 2016.39(Suppl 1). Performed By: #### 2 4321-2, 2776-, ####[facility] LABORATORYCLIA [id number] [place] [address] [place] [facility] Potassium [Moles/Vol] 3.6 mmol/L Low 3.7-5.1 [facility] Comment on above: Order Comment: Johni francia Type: BLOOD SPECIMENOrdering Facility: [facility] Address: [address] [place] [address] Performed By: #### 2 4321-2, 2776-05, ####[facility]OSPITALCLIA [id number] [address] [place] [facility] Sodium [Moles/Vol] 134 mmol/L Low 136-144 [facility] Comment on above: Order Comment: Speci francia Type: BLOOD SPECIMENOrdering Facility: [facility] Address: [address] [place] [address] Performed By: #### 2 4321-2, 2776-05, ####[facility]OSPITALCLIA [id number] [address] [place] [facility] Urea nitrogen [Mass/Vol] 29 mg/dL High 9-24 [facility] Comment on above: Order Comment: Speci men Type: BLOOD SPECIMENOrdering Facility: [facility] Address: [address] [place] [address] Performed By: #### 2 4321-2, 2776-05, ####[facility]ORATORYCLIA [id number] [address] [place] CBC W Auto Differential pane l (Bld)on 08-06-2021 Basophils (Bld) [#/Vol] 0.03 10*3/uL Normal <0.11 [facility] Comment on above: Order Comment: Speci men Type: BLOOD SPECIMENOrdering Facility: [facility] Address: [address] [place] [address] Performed By: #### 5 7021-8 ####[facility]ORATORYCLIA [id number] [address] [place] [facility] Basophils/100 WBC (Bld) 0.3 % Normal [facility] Comment on above: Order Comment: Speci men Type: BLOOD SPECIMENOrdering Facility: [facility] Address: [address] [place] [address] Performed By: #### 5 7021-8 ####[facility] LABORATORYCLIA [id number] [address] Differential cell count method Nom (Bld) Auto Normal [facility] Comment on above: Order Comment: Speci men Type: BLOOD SPECIMENOrdering Facility: [facility] Address: [address] [place] [address] Performed By: #### 5 7021-8 ####[facility]ORATORYCLIA [id number] [address] Eosinophils (Bld) [#/Vol] 0.18 10*3/uL Normal <0.46 [facility] Comment on above: Order Comment: Speci men Type: BLOOD SPECIMENOrdering Facility: [facility] Address: [address] [place] [address] Performed By: #### 5 7021-8 ####[facility]ORATORYCLIA [id number] [address] Eosinophils/100 WBC (Bld) 1.6 % Normal [facility] Comment on above: Order Comment: Speci men Type: BLOOD SPECIMENOrdering Facility: [facility] Address: [address] [place] [address] Performed By: #### 5 7021-8 ####[facility]ORATORYCLIA [id number] [place] [address] [place] Erythrocyte distribution width (RBC) [Ratio] 17.9 % High 11.5-15.0 [facility] Comment on above: Order Comment: Speci men Type: BLOOD SPECIMENOrdering Facility: [facility] Address: [address] [place] [address] Performed By: #### 5 7021-8 ####[facility] LABORATORYCLIA [id number] [address] OF [facility] Hematocrit (Bld) [Volume fraction] 27.6 % Low 39.0-51.0 [facility] Comment on above: Order Comment: Speci men Type: BLOOD SPECIMENOrdering Facility: [facility] Address: [address] [place] [address] Performed By: #### 5 7021-8 ####[facility] LABORATORYCLIA [id number] [address] [place] Hemoglobin (Bld) [Mass/Vol] 8.5 g/dL Low 13.0-17.0 [facility] Comment on above: Order Comment: Speci men Type: BLOOD SPECIMENOrdering Facility: [facility] Address: [address] [place] [address] Performed By: #### 5 7021-8 ####[facility] LABORATORYCLIA [id number] [address] [place] IMMATURE GRAN % 0.6 % Normal [facility] Comment on above: Order Comment: Speci men Type: BLOOD SPECIMENOrdering Facility: [facility] Address: [address] [place] [address] Performed By: #### 5 7021-8 ####[facility] LABORATORYCLIA [id number] [address] IMMATURE GRAN ABS 0.07 k/uL Normal <0.10 [facility] Comment on above: Order Comment: Speci men Type: BLOOD SPECIMENOrdering Facility: [facility] Address: [address] [place] [address] Performed By: #### 5 7021-8 ####[facility] LABORATORYCLIA [id number] [address] [place] Lymphocytes (Bld) [#/Vol] 1.81 10*3/uL Normal 1.00-4.00 [facility] Comment on above: Order Comment: Speci men Type: BLOOD SPECIMENOrdering Facility: [facility] Address: [address] [place] [address] Performed By: #### 5 7021-8 ####[facility] LABORATORYCLIA [id number] [address] Lymphocytes/100 WBC (Bld) 15.7 % Normal [facility] Comment on above: Order Comment: Speci men Type: BLOOD SPECIMENOrdering Facility: [facility] Address: [address] [place] [address] Performed By: #### 5 7021-8 ####[facility] LABORATORYCLIA [id number] [address] [place] MCH (RBC) [Entitic mass] 28.6 pg Normal 26.0-34.0 [facility] Comment on above: Order Comment: Speci men Type: BLOOD SPECIMENOrdering Facility: [facility] Address: [address] [place] [address] Performed By: #### 5 7021-8 ####[facility] LABORATORYCLIA [id number] [address] [place] MCHC (RBC) [Mass/Vol] 30.8 g/dL Normal 30.5-36.0 [facility] Comment on above: Order Comment: Speci men Type: BLOOD SPECIMENOrdering Facility: [facility] Address: [address] [place] [address] Performed By: #### 5 7021-8 ####[facility] LABORATORYCLIA [id number] [address] OF [place] MCV (RBC) [Entitic vol] 92.9 fL Normal 80.0-100.0 [facility] Comment on above: Order Comment: Speci men Type: BLOOD SPECIMENOrdering Facility: [facility] Address: [address] [place] [address] Performed By: #### 5 7021-8 ####[facility]ORATORYCLIA [id number] [place] [address] [place] Monocytes (Bld) [#/Vol] 0.63 10*3/uL Normal <0.87 [facility] Comment on above: Order Comment: Speci men Type: BLOOD SPECIMENOrdering Facility: [facility] Address: [address] [place] [address] Performed By: #### 5 7021-8 ####[facility]ORATORYCLIA [id number] [address] [place] Monocytes/100 WBC (Bld) 5.5 % Normal [facility] Comment on above: Order Comment: Speci men Type: BLOOD SPECIMENOrdering Facility: [facility] Address: [address] [place] [address] Performed By: #### 5 7021-8 ####[facility] LABORATORYCLIA [id number] [address] [place] Neutrophils (Bld) [#/Vol] 8.78 10*3/uL High 1.45-7.50 [facility] Comment on above: Order Comment: Speci men Type: BLOOD SPECIMENOrdering Facility: [facility] Address: [address] [place] [address] Performed By: #### 5 7021-8 ####[facility]ORATORYCLIA [id number] [address] [place] Neutrophils/100 WBC (Bld) 76.3 % Normal [facility] Comment on above: Order Comment: Speci men Type: BLOOD SPECIMENOrdering Facility: [facility] Address: [address] [place] [address] Performed By: #### 5 7021-8 ####[facility] GENER[facility] LABORATORYCLIA [id number] [place] [address] [place] Nucleated RBC (Bld) [#/Vol] 10*3/uL Normal <0.01 [facility] Comment on above: Order Comment: Speci men Type: BLOOD SPECIMENOrdering Facility: [facility] Address: [address] [place] [address] Performed By: #### 5 7021-8 ####[facility] LABORATORYCLIA [id number] [address] OF [facility] Nucleated RBC/100 WBC (Bld) [Ratio] 0.0 /100 WBC Normal [facility] Comment on above: Order Comment: Speci men Type: BLOOD SPECIMENOrdering Facility: [facility] Address: [address] [place] [address] Performed By: #### 5 7021-8 ####[facility] LABORATORYCLIA [id number] [address] [place] Platelet mean volume (Bld) [Entitic vol] 9.9 fL Normal 9.0-12.7 [facility] Comment on above: Order Comment: Speci men Type: BLOOD SPECIMENOrdering Facility: [facility] Address: [address] [place] [address] Performed By: #### 5 7021-8 ####[facility] LABORATORYCLIA [id number] [address] [place] Platelets (Bld) [#/Vol] 230 10*3/uL Normal 150-400 [facility] Comment on above: Order Comment: Speci men Type: BLOOD SPECIMENOrdering Facility: [facility] Address: [address] [place], [place] [address] Performed By: #### 5 7021-8 ####[facility]ORATORYCLIA [id number] [address] [place] RBC (Bld) [#/Vol] 2.97 10*6/uL Low 4.20-6.00 [facility] Comment on above: Order Comment: Speci men Type: BLOOD SPECIMENOrdering Facility: [facility] Address: [address] [place] [address] Performed By: #### 5 7021-8 ####[facility] LABORATORYCLIA [id number] [place] [address] [place] WBC (Bld) [#/Vol] 11.50 10*3/uL High 3.70-11.00 [facility] Comment on above: Order Comment: Speci men Type: BLOOD SPECIMENOrdering Facility: [facility] Address: [address] [place] [address] Performed By: #### 5 7021-8 ####[facility] LABORATORYCLIA [id number] [place] [id number] [facility] [place] CONSULT PROGon 08-06-2021 CONSULT PROG Normal [facility] Magnesium SerPl-mCncon 08-06 Magnesium [Mass/Vol] 1.9 mg/dL Normal 1.7-2.3 [facility] Comment on above: Order Comment: Speci men Type: BLOOD SPECIMENOrdering Facility: [facility] Address: [address] [place] [address] Performed By: #### 2 4321-2, 2777-1, 19607-0 ####[facility] LABORATORYCLIA [id number] [address] NURSING PROGon 08-06-2021 NURSING PROG [facility] OPERATIVE NOon 08-06-2021 OPERATIVE NO Normal [facility] Phosphate SerPl-mCncon 08-06 Phosphate [Mass/Vol] 4.2 mg/dL Normal 2.7-4.8 [facility] Comment on above: Order Comment: Speci men Type: BLOOD SPECIMENOrdering Facility: [facility] Address: [address] [place], [place] [address] Performed By: #### 2 4321-2, 2777-1, 34534-1 ####[facility] LABORATORYCLIA [id number] [place] [id number] [place] ALLIED HEALTHon 08-05-2021 ALLIED HEALTH Normal [facility] ALLIED HEALTH Normal [facility] ANES PRE-OPon 08-05-2021 ANES PRE-OP Normal [facility] BRIEF OP NOTon 08-05-2021 BRIEF OP NOT Normal [facility] Bacteria Spec Resp Culton Bacteria identified Respiratory culture Nom (Unsp spec) CULTURE, RESPIRATORY: Few Normal respiratory chris present ORGANISM ID: 1 Few Proteus species Insignificant colony count. No further workup. GRAM STAIN: No organisms seen Few Polymorphonuclear leukocytes Few Epithelial cells Abnormal [facility] Comment on above: Performed By: #### 3 2355-0 ####[facility]ORATORYCLIA [id number] [place] [address] [place] Bacteria Ur Culton 2 Bacteria identified Cx Nom (U) CULTURE, URINE: No growth (<1,000 CFU/ml) Normal [facility] Comment on above: Performed By: #### 6 30-4 ####[facility]ORATORYCLIA [id number] [place] [address] [place] Basic metabolic 2000 panelon 08-05-2021 Anion gap [Moles/Vol] 7 mmol/L Low 9-18 [facility] Comment on above: Order Comment: Speci men Type: BLOOD SPECIMENOrdering Facility: [facility] Address: [address] [place] [address] Performed By: #### 2 4321-2 ####[facility] LABORATORYCLIA [id number] [place] [address] [place] Calcium [Mass/Vol] 9.5 mg/dL Normal 8.5-10.2 [facility] Comment on above: Order Comment: Speci men Type: BLOOD SPECIMENOrdering Facility: [facility] Address: [address] [address] Performed By: #### 2 4321-2 ####[facility] LABORATORYCLIA [id number] [place] [address] [place] Chloride [Moles/Vol] 97 mmol/L Normal 97-105 [facility] Comment on above: Order Comment: Speci men Type: BLOOD SPECIMENOrdering Facility: [facility] Address: [address] [address] Performed By: #### 2 4321-2 ####[facility]ORATORYCLIA [id number] [address] [place] [facility] CO2 [Moles/Vol] 30 mmol/L Normal 22-30 [facility] Comment on above: Order Comment: Speci men Type: BLOOD SPECIMENOrdering Facility: [facility] Address: [address] [place] [address] Performed By: #### 2 4321-2 ####[facility] LABORATORYCLIA [id number] [address] [place] Creatinine [Mass/Vol] 0.61 mg/dL Low 0.73-1.22 [facility] Comment on above: Order Comment: Speci men Type: BLOOD SPECIMENOrdering Facility: [facility] Address: [address] [place] [address] Performed By: #### 2 4321-2 ####[facility]ITAL[facility] [id number] [address] ESTIMATED GLOMERULAR FILTRATION RATE 104 mL/min/1.73m??? Normal >=60 [facility] Comment on above: Order Comment: Speci men Type: BLOOD SPECIMENOrdering Facility: [facility] Address: [address] [place] [address] Result Comment: Luzmaria mated Glomerular Filtration Rate [...] actual GFR. Performed By: #### 2 4321-2 ####[facility]ATORYCLIA [id number] [address] Glucose [Mass/Vol] 124 mg/dL High 74-99 [facility] Comment on above: Order Comment: Speci men Type: BLOOD SPECIMENOrdering Facility: [facility] Address: [address] [address] Result Comment: The [place] [employer] (ADA) provides guidance for cutoff [...] Standards of Medical Care in Diabetes 2016, [place] [employer]. Diabetes Care. 2016.39(Suppl 1). Performed By: #### 2 4321-2 ####[facility]ATORYCLIA [id number] [place] [address] [place] Potassium [Moles/Vol] 4.9 mmol/L Normal 3.7-5.1 [facility] Comment on above: Order Comment: Speci men Type: BLOOD SPECIMENOrdering Facility: [facility] Address: [address] [address] Performed By: #### 2 1-2 ####[facility] [id number] [place] [address] [place] Sodium [Moles/Vol] 134 mmol/L Low 136-144 [facility] Comment on above: Order Comment: Speci men Type: BLOOD SPECIMENOrdering Facility: [facility] Address: [address] [address] Performed By: #### 2 4321-2 ####[facility]ATORYCLIA [id number] [place] [address] [place] Urea nitrogen [Mass/Vol] 40 mg/dL High 9-24 [facility] Comment on above: Order Comment: Speci men Type: BLOOD SPECIMENOrdering Facility: [facility] Address: [address] [address] Performed By: #### 2 4321-2 ####[facility]ATORYCLIA [id number] [place] [address] [place] CBC W Auto Differential pane l (Bld)on 08-05-2021 Basophils (Bld) [#/Vol] 0.04 10*3/uL Normal <0.11 [facility] Comment on above: Order Comment: Speci men Type: BLOOD SPECIMENOrdering Facility: [facility] Address: [address] [place] [address] Performed By: #### 5 7021-8 ####[facility]ORATORYCLIA [id number] [address] [place] [facility] Basophils/100 WBC (Bld) 0.3 % Normal [facility] Comment on above: Order Comment: Speci men Type: BLOOD SPECIMENOrdering Facility: [facility] Address: [address] [place] [address] Performed By: #### 5 7021-8 ####[facility]ATORYCLIA [id number] [address] Differential cell count method Nom (Bld) Auto Normal [facility] Comment on above: Order Comment: Speci men Type: BLOOD SPECIMENOrdering Facility: [facility] Address: [address] [place] [address] Performed By: #### 5 7021-8 ####[facility]ATORYCLIA [id number] [address] [place] Eosinophils (Bld) [#/Vol] 0.42 10*3/uL Normal <0.46 [facility] Comment on above: Order Comment: Speci men Type: BLOOD SPECIMENOrdering Facility: [facility] Address: [address] [place] [address] Performed By: #### 5 7021-8 ####[facility]ATORYCLIA [id number] [address] Eosinophils/100 WBC (Bld) 3.6 % Normal [facility] Comment on above: Order Comment: Speci men Type: BLOOD SPECIMENOrdering Facility: [facility] Address: [address] [address] Performed By: #### 5 7021-8 ####[facility]ATORYCLIA [id number] [address] Erythrocyte distribution width (RBC) [Ratio] 17.9 % High 11.5-15.0 [facility] Comment on above: Order Comment: Speci men Type: BLOOD SPECIMENOrdering Facility: [facility] Address: [address] [place] [address] Performed By: #### 5 7021-8 ####[facility]ATORYCLIA [id number] [address] Hematocrit (Bld) [Volume fraction] 30.8 % Low 39.0-51.0 [facility] Comment on above: Order Comment: Speci men Type: BLOOD SPECIMENOrdering Facility: [facility] Address: [address] [place] [address] Performed By: #### 5 7021-8 ####[facility]ATORYCLIA [id number] [address] Hemoglobin (Bld) [Mass/Vol] 9.6 g/dL Low 13.0-17.0 [facility] Comment on above: Order Comment: Speci men Type: BLOOD SPECIMENOrdering Facility: [facility] Address: [address] [place] [address] Performed By: #### 5 7021-8 ####[facility]ATORYCLIA [id number] [address] IMMATURE GRAN % 0.5 % Normal [facility] Comment on above: Order Comment: Speci men Type: BLOOD SPECIMENOrdering Facility: [facility] Address: [address] [place] [address] Performed By: #### 5 7021-8 ####[facility]ORATORYCLIA [id number] [address] IMMATURE GRAN ABS 0.06 k/uL Normal <0.10 [facility] Comment on above: Order Comment: Speci men Type: BLOOD SPECIMENOrdering Facility: [facility] Address: [address] [place] [address] Performed By: #### 5 7021-8 ####[facility]ORATORYCLIA [id number] [address] OF [facility] Lymphocytes (Bld) [#/Vol] 2.17 10*3/uL Normal 1.00-4.00 [facility] Comment on above: Order Comment: Speci men Type: BLOOD SPECIMENOrdering Facility: [facility] Address: [address] [place] [address] Performed By: #### 5 7021-8 ####[facility]ATORYCLIA [id number] [address] Lymphocytes/100 WBC (Bld) 18.7 % Normal [facility] Comment on above: Order Comment: Speci men Type: BLOOD SPECIMENOrdering Facility: [facility] Address: [address] [place] [address] Performed By: #### 5 7021-8 ####[facility]ORATORYCLIA [id number] [address] [place] MCH (RBC) [Entitic mass] 28.9 pg Normal 26.0-34.0 [facility] Comment on above: Order Comment: Speci men Type: BLOOD SPECIMENOrdering Facility: [facility] Address: [address] [place] [address] Performed By: #### 5 7021-8 ####[facility]ATORYCLIA [id number] [address] [place] MCHC (RBC) [Mass/Vol] 31.2 g/dL Normal 30.5-36.0 [facility] Comment on above: Order Comment: Speci men Type: BLOOD SPECIMENOrdering Facility: [facility] Address: [address] [place] [address] Performed By: #### 5 7021-8 ####[facility]ORATORYCLIA [id number] [address] [place] MCV (RBC) [Entitic vol] 92.8 fL Normal 80.0-100.0 [facility] Comment on above: Order Comment: Speci men Type: BLOOD SPECIMENOrdering Facility: [facility] Address: [address] [place] [address] Performed By: #### 5 7021-8 ####[facility]ORATORYCLIA [id number] [place] [address] [place] Monocytes (Bld) [#/Vol] 0.71 10*3/uL Normal <0.87 [facility] Comment on above: Order Comment: Speci men Type: BLOOD SPECIMENOrdering Facility: [facility] Address: [address] [place] [address] Performed By: #### 5 7021-8 ####[facility]ATORYCLIA [id number] [address] Monocytes/100 WBC (Bld) 6.1 % Normal [facility] Comment on above: Order Comment: Speci men Type: BLOOD SPECIMENOrdering Facility: [facility] Address: [address] [place] [address] Performed By: #### 5 7021-8 ####[facility]ORATORYCLIA [id number] [address] [place] Neutrophils (Bld) [#/Vol] 8.19 10*3/uL High 1.45-7.50 [facility] Comment on above: Order Comment: Speci men Type: BLOOD SPECIMENOrdering Facility: [facility] Address: [address] [place] [address] Performed By: #### 5 7021-8 ####[facility]ATORYCLIA [id number] [address] [place] Neutrophils/100 WBC (Bld) 70.8 % Normal [facility] Comment on above: Order Comment: Speci men Type: BLOOD SPECIMENOrdering Facility: [facility] Address: [address] [place] [address] Performed By: #### 5 7021-8 ####[facility]ATORYCLIA [id number] [address] [place] Nucleated RBC (Bld) [#/Vol] 10*3/uL Normal <0.01 [facility] Comment on above: Order Comment: Speci men Type: BLOOD SPECIMENOrdering Facility: [facility] Address: [address] [place] [address] Performed By: #### 5 7021-8 ####[facility]ATORYCLIA [id number] [address] [place] Nucleated RBC/100 WBC (Bld) [Ratio] 0.0 /100 WBC Normal [facility] Comment on above: Order Comment: Speci men Type: BLOOD SPECIMENOrdering Facility: [facility] Address: [address] [place] [address] Performed By: #### 5 7021-8 ####[facility]ATORYCLIA [id number] [address] [place] Platelet mean volume (Bld) [Entitic vol] 9.6 fL Normal 9.0-12.7 [facility] Comment on above: Order Comment: Speci men Type: BLOOD SPECIMENOrdering Facility: [facility] Address: [address] [place] [address] Performed By: #### 5 7021-8 ####[facility]ATORYCLIA [id number] [address] [place] Platelets (Bld) [#/Vol] 339 10*3/uL Normal 150-400 [facility] Comment on above: Order Comment: Speci men Type: BLOOD SPECIMENOrdering Facility: [facility] Address: [address] [place] [address] Performed By: #### 5 7021-8 ####[facility]ATORYCLIA [id number] [address] [place] RBC (Bld) [#/Vol] 3.32 10*6/uL Low 4.20-6.00 [facility] Comment on above: Order Comment: Speci men Type: BLOOD SPECIMENOrdering Facility: [facility] Address: [address] [place] [address] Performed By: #### 5 7021-8 ####[facility]ATORYCLIA [id number] [address] OF [facility] WBC (Bld) [#/Vol] 11.59 10*3/uL High 3.70-11.00 [facility] Comment on above: Order Comment: Speci men Type: BLOOD SPECIMENOrdering Facility: [facility] Address: [address] [place] [address] Performed By: #### 5 7021-8 ####[facility]ATORYCLIA [id number] [address] BRAIN WO IVCONon 08-06-[address] BRAIN WO IVCON Normal [facility] Magnesium SerPl-mCncon 08-05 Magnesium [Mass/Vol] 2.2 mg/dL Normal 1.7-2.3 [facility] Comment on above: Order Comment: Speci men Type: BLOOD SPECIMENOrdering Facility: [facility] Address: [address] [place] [address] Performed By: #### 1 9123-9, 2777-1 ####[facility]ATORYCLIA [id number] [address] NURSING PROGon 08-05-2021 NURSING PROG Normal [facility] NURSING PROG Normal [facility] NUTRITIONon 08-05-2021 NUTRITION Normal [facility] OPERATIVE NOon 08-05-2021 OPERATIVE NO Normal [facility] Phosphate SerPl-mCncon 08-05 Phosphate [Mass/Vol] 4.6 mg/dL Normal 2.7-4.8 [facility] Comment on above: Order Comment: Speci men Type: BLOOD SPECIMENOrdering Facility: [facility] Address: [address] [place] [address] Performed By: #### 1 9123-9, 2777-1 ####[facility]ATORYCLIA [id number] [address] [place] THERAPY NTon 08-05-2021 THERAPY NT Normal [facility] THERAPY NT Normal [facility] Urinalysis complete panel (U )on 08-05-2021 Bilirubin Ql (U) Negative Normal Negative [facility] Comment on above: Order Comment: Speci men Type: URINE SPECIMENOrdering Facility: [facility] Address: [address] [place] [address] Performed By: #### 2 4356-8 ####[facility]ATORYCLIA [id number] [address] Clarity (Unsp spec) Clear Normal Clear [facility] Comment on above: Order Comment: Speci men Type: URINE SPECIMENOrdering Facility: [facility] Address: [address] [place] [address] Performed By: #### 2 4356-8 ####[facility]ATORYCLIA [id number] [address] Color (U) Light Yellow Normal yellow [facility] Comment on above: Order Comment: Speci men Type: URINE SPECIMENOrdering Facility: [facility] Address: [address] [place] [address] Performed By: #### 2 4356-8 ####[facility]ATORYCLIA [id number] [address] Epithelial cells LM.HPF (Urine sed) [#/Area] Few Abnormal None Seen [facility] Comment on above: Order Comment: Speci men Type: URINE SPECIMENOrdering Facility: [facility] Address: [address] [place] [address] Performed By: #### 2 4356-8 ####[facility]ATORYCLIA [id number] [address] [place] Glucose Test strip (U) [Mass/Vol] Negative Normal Negative [facility] Comment on above: Order Comment: Speci men Type: URINE SPECIMENOrdering Facility: [facility] Address: [address] [address] Performed By: #### 2 4356-8 ####[facility]ATORYCLIA [id number] [address] Hemoglobin Ql (U) Negative Normal Negative [facility] Comment on above: Order Comment: Speci men Type: URINE SPECIMENOrdering Facility: [facility] Address: [address] [address] Performed By: #### 2 4356-8 ####[facility]ATORYCLIA [id number] [address] OF [facility] Hyaline casts (Urine sed) [#/Area] 1-3 /LPF Abnormal 0 /LPF [facility] Comment on above: Order Comment: Speci men Type: URINE SPECIMENOrdering Facility: [facility] Address: [address] [place] [address] Performed By: #### 2 4356-8 ####[facility]ATORYCLIA [id number] [address] [place] Ketones Ql (U) Negative Normal Negative [facility] Comment on above: Order Comment: Speci men Type: URINE SPECIMENOrdering Facility: [facility] Address: [address] [place] [address] Performed By: #### 2 4356-8 ####[facility]ATORYCLIA [id number] [address] Leukocyte esterase Test strip Ql (U) Negative Normal Negative [facility] Comment on above: Order Comment: Speci men Type: URINE SPECIMENOrdering Facility: [facility] Address: [address] [address] Performed By: #### 2 4356-8 ####[facility]ATORYCLIA [id number] [place] [address] [place] Nitrite Ql (U) Negative Normal Negative [facility] Comment on above: Order Comment: Speci men Type: URINE SPECIMENOrdering Facility: [facility] Address: [address] [place] [address] Performed By: #### 2 4356-8 ####[facility]ATORYCLIA [id number] [address] pH (U) 6.0 [pH] Normal 5.0-8.0 [facility] Comment on above: Order Comment: Speci men Type: URINE SPECIMENOrdering Facility: [facility] Address: [address] [place] [address] Performed By: #### 2 4356-8 ####[facility]ATORYCLIA [id number] [address] [place] [facility] Protein (U) [Mass/Vol] Negative Normal Negative [facility] Comment on above: Order Comment: Speci men Type: URINE SPECIMENOrdering Facility: [facility] Address: [address] [place] [address] Performed By: #### 2 4356-8 ####[facility]ATORYCLIA [id number] [address] [place] [facility] RBC LM.HPF (Urine sed) [#/Area] 0-3 /HPF Normal 0-3 /HPF [facility] Comment on above: Order Comment: Speci men Type: URINE SPECIMENOrdering Facility: [facility] Address: [address] [place] [address] Performed By: #### 2 4356-8 ####[facility]ATORYCLIA [id number] [address] Specific gravity (U) [Rel density] 1.015 Normal 1.005-1.030 [facility] Comment on above: Order Comment: Speci men Type: URINE SPECIMENOrdering Facility: [facility] Address: [address] [place] [address] Performed By: #### 2 4356-8 ####[facility]ATORYCLIA [id number] [address] Urobilinogen Ql (U) Normal Normal Negative [facility] Comment on above: Order Comment: Speci men Type: URINE SPECIMENOrdering Facility: [facility] Address: [address] [place] [address] Performed By: #### 2 4356-8 ####[facility]ATORYCLIA [id number] [address] [place] [facility] WBC LM.HPF (Urine sed) [#/Area] 0-5 /HPF Normal 0-5 /HPF [facility] Comment on above: Order Comment: Speci men Type: URINE SPECIMENOrdering Facility: [facility] Address: [address] [place] [address] Performed By: #### 2 4356-8 ####[facility]ATORYCLIA [id number] [address] XR ABDOMEN 1V SUPINEon 08-05 XR ABDOMEN 1V SUPINE Normal [facility] XR CHEST 1V FRONTALon 2021 XR CHEST 1V FRONTAL Normal [facility] XR CHEST 1V FRONTAL Normal [facility] XR NECK SOFT TISSUE 2V AP/LA Ton 08-05-2021 XR NECK SOFT TISSUE 2V AP/LAT Normal [facility] XR SKULL 2V AP/LATon 022 XR SKULL 2V AP/LAT Normal [facility] ALLIED HEALTHon 08-04-2021 ALLIED HEALTH Normal [facility] Bacteria Bld Culton 08-05-19 22 Bacteria identified Cx Nom (Bld) CULTURE, BLOOD: No growth 5 days Normal [facility] Comment on above: Performed By: #### 6 00-7 ####[facility]ATORYCLIA [id number] [address] Bacteria identified Cx Nom (Bld) CULTURE, BLOOD: No growth 5 days Normal [facility] Comment on above: Performed By: #### 6 00-7 ####[facility]ATORYCLIA [id number] [address] OF [facility] CBC W Auto Differential pane l (Bld)on 08-04-2021 Basophils (Bld) [#/Vol] 0.05 10*3/uL Normal <0.11 [facility] Comment on above: Order Comment: Speci men Type: BLOOD SPECIMENOrdering Facility: [facility] Address: [address] [place] [address] Performed By: #### 5 7021-8 ####[facility]ORATORYCLIA [id number] [address] [place] [facility] Basophils/100 WBC (Bld) 0.4 % Normal [facility] Comment on above: Order Comment: Speci men Type: BLOOD SPECIMENOrdering Facility: [facility] Address: [address] [place] [address] Performed By: #### 5 7021-8 ####[facility]ORATORYCLIA [id number] [address] Differential cell count method Nom (Bld) Auto Normal [facility] Comment on above: Order Comment: Speci men Type: BLOOD SPECIMENOrdering Facility: [facility] Address: [address] [place] [address] Performed By: #### 5 7021-8 ####[facility]ATORYCLIA [id number] [address] [place] Eosinophils (Bld) [#/Vol] 0.21 10*3/uL Normal <0.46 [facility] Comment on above: Order Comment: Speci men Type: BLOOD SPECIMENOrdering Facility: [facility] Address: [address] [place] [address] Performed By: #### 5 7021-8 ####[facility]ATORYCLIA [id number] [address] [place] Eosinophils/100 WBC (Bld) 1.7 % Normal [facility] Comment on above: Order Comment: Speci men Type: BLOOD SPECIMENOrdering Facility: [facility] Address: [address] [place] [address] Performed By: #### 5 7021-8 ####[facility]ATORYCLIA [id number] [address] Erythrocyte distribution width (RBC) [Ratio] 18.1 % High 11.5-15.0 [facility] Comment on above: Order Comment: Speci men Type: BLOOD SPECIMENOrdering Facility: [facility] Address: [address] [place] [address] Performed By: #### 5 7021-8 ####[facility]ORATORYCLIA [id number] [address] Hematocrit (Bld) [Volume fraction] 32.0 % Low 39.0-51.0 [facility] Comment on above: Order Comment: Speci men Type: BLOOD SPECIMENOrdering Facility: [facility] Address: [address] [place] [address] Performed By: #### 5 7021-8 ####[facility]ORATORYCLIA [id number] [address] Hemoglobin (Bld) [Mass/Vol] 10.0 g/dL Low 13.0-17.0 [facility] Comment on above: Order Comment: Speci men Type: BLOOD SPECIMENOrdering Facility: [facility] Address: [address] [place] [address] Performed By: #### 5 7021-8 ####[facility]ORATORYCLIA [id number] [address] IMMATURE GRAN % 0.6 % Normal [facility] Comment on above: Order Comment: Speci men Type: BLOOD SPECIMENOrdering Facility: [facility] Address: [address] [place] [address] Performed By: #### 5 7021-8 ####[facility]ORATORYCLIA [id number] [address] IMMATURE GRAN ABS 0.08 k/uL Normal <0.10 [facility] Comment on above: Order Comment: Speci men Type: BLOOD SPECIMENOrdering Facility: [facility] Address: [address] [place] [address] Performed By: #### 5 7021-8 ####[facility]ORATORYCLIA [id number] [address] [place] Lymphocytes (Bld) [#/Vol] 2.55 10*3/uL Normal 1.00-4.00 [facility] Comment on above: Order Comment: Speci men Type: BLOOD SPECIMENOrdering Facility: [facility] Address: [address] [place] [address] Performed By: #### 5 7021-8 ####[facility]ORATORYCLIA [id number] [address] Lymphocytes/100 WBC (Bld) 20.5 % Normal [facility] Comment on above: Order Comment: Speci men Type: BLOOD SPECIMENOrdering Facility: [facility] Address: [address] [place] [address] Performed By: #### 5 7021-8 ####[facility]ORATORYCLIA [id number] [address] [place] [facility] MCH (RBC) [Entitic mass] 28.9 pg Normal 26.0-34.0 [facility] Comment on above: Order Comment: Speci men Type: BLOOD SPECIMENOrdering Facility: [facility] Address: [address] [place] [address] Performed By: #### 5 7021-8 ####[facility]ORATORYCLIA [id number] [address] [place] MCHC (RBC) [Mass/Vol] 31.3 g/dL Normal 30.5-36.0 [facility] Comment on above: Order Comment: Speci men Type: BLOOD SPECIMENOrdering Facility: [facility] Address: [address] [place] [address] Performed By: #### 5 7021-8 ####[facility]ORATORYCLIA [id number] [address] [address] [place] MCV (RBC) [Entitic vol] 92.5 fL Normal 80.0-100.0 [facility] Comment on above: Order Comment: Speci men Type: BLOOD SPECIMENOrdering Facility: [facility] Address: [address] [place] [address] Performed By: #### 5 7021-8 ####[facility] GENERAL LABORATORYCLIA [id number] [address] [place] Monocytes (Bld) [#/Vol] 0.85 10*3/uL Normal <0.87 [facility] Comment on above: Order Comment: Speci men Type: BLOOD SPECIMENOrdering Facility: [facility] Address: [address] [place] [address] Performed By: #### 5 7021-8 ####[facility] LABORATORYCLIA [id number] [address] [place] Monocytes/100 WBC (Bld) 6.8 % Normal [facility] Comment on above: Order Comment: Speci men Type: BLOOD SPECIMENOrdering Facility: [facility] Address: [address] [place] [address] Performed By: #### 5 7021-8 ####[facility] LABORATORYCLIA [id number] [address] [place] Neutrophils (Bld) [#/Vol] 8.68 10*3/uL High 1.45-7.50 [facility] Comment on above: Order Comment: Speci men Type: BLOOD SPECIMENOrdering Facility: [facility] Address: [address] [place] [address] Performed By: #### 5 7021-8 ####[facility] LABORATORYCLIA [id number] [address] [place] Neutrophils/100 WBC (Bld) 70.0 % Normal [facility] Comment on above: Order Comment: Speci men Type: BLOOD SPECIMENOrdering Facility: [facility] Address: [address] [place] [address] Performed By: #### 5 7021-8 ####[facility] GENERAL LABORATORYCLIA [id number] [place] [address] [place] Nucleated RBC (Bld) [#/Vol] 10*3/uL Normal <0.01 [facility] Comment on above: Order Comment: Speci men Type: BLOOD SPECIMENOrdering Facility: [facility] Address: [address] [place] [address] Performed By: #### 5 7021-8 ####[facility] LABORATORYCLIA [id number] [address] STATES OF [facility] Nucleated RBC/100 WBC (Bld) [Ratio] 0.0 /100 WBC Normal [facility] Comment on above: Order Comment: Speci men Type: BLOOD SPECIMENOrdering Facility: [facility] Address: [address] [place] [address] Performed By: #### 5 7021-8 ####[facility] LABORATORYCLIA [id number] [address] [place] Platelet mean volume (Bld) [Entitic vol] 10.0 fL Normal 9.0-12.7 [facility] Comment on above: Order Comment: Speci men Type: BLOOD SPECIMENOrdering Facility: [facility] Address: [address] [place], [place] [id number] Performed By: #### 5 7021-8 ####[facility] LABORATORYCLIA [id number] [address] [place] Platelets (Bld) [#/Vol] 393 10*3/uL Normal 150-400 [facility] Comment on above: Order Comment: Speci men Type: BLOOD SPECIMENOrdering Facility: [facility] Address: [address] [place], [place] [id number] Performed By: #### 5 7021-8 ####[facility] LABORATORYCLIA [id number] [address] [place] RBC (Bld) [#/Vol] 3.46 10*6/uL Low 4.20-6.00 [facility] Comment on above: Order Comment: Speci men Type: BLOOD SPECIMENOrdering Facility: [facility] Address: [address] [place], [place] [id number] Performed By: #### 5 7021-8 ####[facility] LABORATORYCLIA [id number] [address] STATES [facility] WBC (Bld) [#/Vol] 12.42 10*3/uL High 3.70-11.00 [facility] Comment on above: Order Comment: Speci men Type: BLOOD SPECIMENOrdering Facility: [facility] Address: [address] [place] [address] Performed By: #### 5 7021-8 ####[facility] LABORATORYCLIA [id number] [address] OF [facility] CT BRAIN WO IVCONon 08-05-19 CT BRAIN WO IVCON Normal [facility] Lactate (Bld) [Moles/Vol]on 08-04-2021 Lactate [Moles/Vol] 1.4 mmol/L Normal 0.5-2.2 [facility] Comment on above: Order Comment: Speci men Type: BLOOD SPECIMENOrdering Facility: [facility] Address: [address] [place] [address] Performed By: #### 3 2693-4 ####[facility] LABORATORYCLIA [id number] [address] PROCALCITONIN (LAB)on 2021 Procalcitonin [Mass/Vol] 0.08 ng/mL Normal <0.09 [facility] Comment on above: Order Comment: Speci men Type: BLOOD SPECIMENOrdering Facility: [facility] Address: [address] [place] [address] Result Comment: For a guided interpretation of test results, please visit the Change in Procalcitonin Calculator, [email or web address]. Performed By: #### P ROCAL ####[facility] LABORATORYCLIA [id number] [address] Prealbumin [Mass/Vol]on 07-07 Prealbumin Nephelometry [Mass/Vol] 35 mg/dL Normal 17-36 [facility] Comment on above: Order Comment: Speci men Type: BLOOD SPECIMENOrdering Facility: [facility] Address: [address] [place] [address] Performed By: #### 1 4338-8 ####[facility] LABORATORYCLIA [id number] [address] SARS-CoV-2 RNA Resp Ql MEGAN+p robeon 08-04-2021 SARS-CoV-2 (COVID-19) RNA MEGAN+probe Ql (Resp) COVID 19 RESULT: SARS-CoV-2 (Agent of COVID-19) Not Detected by RT-PCR or equivalent method. This test has been authorized by FDA under an Emergency Use Authorization (EUA). [facility] Comment on above: Performed By: #### 9 4500-6 ####[facility] LABORATORYCLIA [id number] [address] TYPE AND SCREENon 08-04-2021 ABO O Normal [facility] Comment on above: Order Comment: Speci men Type: BLOOD SPECIMENOrdering Facility: [facility] Address: [address] [place] [address] Performed By: #### T SCR ####[facility] BLOOD BANKIA [id number] [address] HISTORICAL AB SCR STATUS Negative [facility] Comment on above: Order Comment: Speci men Type: BLOOD SPECIMENOrdering Facility: [facility] Address: [address] [place] [address] Performed By: #### T SCR ####[facility] BLOOD BANKCLIA [id number] [address] Rh Nom (Bld) Positive [facility] Comment on above: Order Comment: Speci men Type: BLOOD SPECIMENOrdering Facility: [facility] Address: [address] [place] [address] Performed By: #### T SCR ####[facility] BLOOD BANKCLIA [id number] [address] TYPE AND SCREEN EXPIRATION 08/07/2021 23:59 Normal [facility] Comment on above: Order Comment: Speci men Type: BLOOD SPECIMENOrdering Facility: [facility] Address: [address] [place] [address] Performed By: #### T SCR ####[facility] BLOOD BANKCLIA [id number] [place] [address] [place] aPTT PPPon 08-04-2021 aPTT Coag (PPP) [Time] 51.8 s High 23.0-32.[address] [facility] Comment on above: Order Comment: Speci men Type: BLOOD SPECIMENOrdering Facility: [facility] Address: [address] [place] [address] Performed By: #### 1 4979-9 ####[facility] LABORATORYCLIA [id number] [place] [address] [place] Basic metabolic 2000 panelon 08-03-2021 Anion gap [Moles/Vol] 9 mmol/L Normal 9-18 [facility] Comment on above: Order Comment: Speci men Type: BLOOD SPECIMENOrdering Facility: [facility] Address: [address] [place] [address] Performed By: #### 2 4321-2, 32183-4, 2777-1 ####[facility] LABORATORYCLIA [id number] [place] [address] [place] Calcium [Mass/Vol] 9.3 mg/dL Normal 8.5-10.2 [facility] Comment on above: Order Comment: Speci men Type: BLOOD SPECIMENOrdering Facility: [facility] Address: [address] [place] [address] Performed By: #### 2 4321-2, 44252-5, 2777-1 ####[facility] LABORATORYCLIA [id number] [place] [address] [place] Chloride [Moles/Vol] 97 mmol/L Normal 97-105 [facility] Comment on above: Order Comment: Speci men Type: BLOOD SPECIMENOrdering Facility: [facility] Address: [address] [place], [place] [phone] Performed By: #### 2 4321-2, , 2776-05 ####[facility]CL[facility] [id number] [address] CO2 [Moles/Vol] 27 mmol/L Normal 22-30 [facility] Comment on above: Order Comment: Speci men Type: BLOOD SPECIMENOrdering Facility: [facility] Address: [address] [place] [address] Performed By: #### 2 4321-2, , 2776-05 ####[facility]OSPITALIA [id number] [address] Creatinine [Mass/Vol] 0.63 mg/dL Low 0.73-1.22 [facility] Comment on above: Order Comment: Speci men Type: BLOOD SPECIMENOrdering Facility: [facility] Address: [address] [place] [address] Performed By: #### 2 4321-2, , 2776-05 ####[facility] HOSPITALIA [id number] [address] ESTIMATED GLOMERULAR FILTRATION RATE 103 mL/min/1.73m??? Normal >=60 [facility] Comment on above: Order Comment: Speci men Type: BLOOD SPECIMENOrdering Facility: [facility] Address: [address] [place] [address] Result Comment: Luzmaria mated Glomerular Filtration Rate [...] Performed By: #### 2 4321-2, , 2776-05 ####[facility] LABORATORYCLIA [id number] [place] [address] [place] Glucose [Mass/Vol] 136 mg/dL High 74-99 [facility] Comment on above: Order Comment: Shira francia Type: BLOOD SPECIMENOrdering Facility: [facility] Address: [address] [place], [place] [phone] Result Comment: The [place] [employer] (ADA) provides guidance for cutoff [...] Standards of Medical Care in Diabetes 2016, [place] [employer]. Diabetes Care. 2016.39(Suppl 1). Performed By: #### 2 4321-2, , 2776-05 ####[facility] LABORATORYCLIA [id number] [place] [address] [place] Potassium [Moles/Vol] 4.1 mmol/L Normal 3.7-5.1 [facility] Comment on above: Order Comment: Shira feldman Type: BLOOD SPECIMENOrdering Facility: [facility] Address: [address] [place], [place] [address] Performed By: #### 2 4321-2, , 2776-05 ####[facility] LABORATORYCLIA [id number] [place] [address] [place] Sodium [Moles/Vol] 133 mmol/L Low 136-144 [facility] Comment on above: Order Comment: Shira feldman Type: BLOOD SPECIMENOrdering Facility: [facility] Address: [address] [place], [place] [phone] Performed By: #### 2 4321-2, , 2776-05 ####[facility] LABORATORYCLIA [id number] [place] [address] [place] Urea nitrogen [Mass/Vol] 40 mg/dL High 9-24 [facility] Comment on above: Order Comment: Speci men Type: BLOOD SPECIMENOrdering Facility: [facility] Address: [address] [place] [address] Performed By: #### 2 4321-2, 38781-7, 2777-1 ####[facility] LABORATORYCLIA [id number] [address] [place] CASE MANAGEMon 08-03-2021 CASE MANAGEM Normal [facility] CBC W Auto Differential pane l (Bld)on 08-03-2021 Basophils (Bld) [#/Vol] 0.06 10*3/uL Normal <0.11 [facility] Comment on above: Order Comment: Speci men Type: BLOOD SPECIMENOrdering Facility: [facility] Address: [address] [place] [address] Performed By: #### 5 7021-8 ####[facility] LABORATORYCLIA [id number] [place] [address] [place] Basophils/100 WBC (Bld) 0.5 % Normal [facility] Comment on above: Order Comment: Speci men Type: BLOOD SPECIMENOrdering Facility: [facility] Address: [address] [place] [address] Performed By: #### 5 7021-8 ####[facility] LABORATORYCLIA [id number] [address] [place] Differential cell count method Nom (Bld) Auto Normal [facility] Comment on above: Order Comment: Speci men Type: BLOOD SPECIMENOrdering Facility: [facility] Address: [address] [place] [address] Performed By: #### 5 7021-8 ####[facility] LABORATORYCLIA [id number] [place] [address] [place] Eosinophils (Bld) [#/Vol] 0.23 10*3/uL Normal <0.46 [facility] Comment on above: Order Comment: Speci men Type: BLOOD SPECIMENOrdering Facility: [facility] Address: [address] [place] [address] Performed By: #### 5 7021-8 ####[facility] LABORATORYCLIA [id number] [address] Eosinophils/100 WBC (Bld) 1.8 % Normal [facility] Comment on above: Order Comment: Speci men Type: BLOOD SPECIMENOrdering Facility: [facility] Address: [address] [place] [address] Performed By: #### 5 7021-8 ####[facility] LABORATORYCLIA [id number] [address] Erythrocyte distribution width (RBC) [Ratio] 17.6 % High 11.5-15.0 [facility] Comment on above: Order Comment: Speci men Type: BLOOD SPECIMENOrdering Facility: [facility] Address: [address] [place] [address] Performed By: #### 5 7021-8 ####[facility] LABORATORYCLIA [id number] [address] Hematocrit (Bld) [Volume fraction] 30.7 % Low 39.0-51.0 [facility] Comment on above: Order Comment: Speci men Type: BLOOD SPECIMENOrdering Facility: [facility] Address: [address] [place] [address] Performed By: #### 5 7021-8 ####[facility] LABORATORYCLIA [id number] [address] Hemoglobin (Bld) [Mass/Vol] 9.3 g/dL Low 13.0-17.0 [facility] Comment on above: Order Comment: Speci men Type: BLOOD SPECIMENOrdering Facility: [facility] Address: [address] [place] [address] Performed By: #### 5 7021-8 ####[facility] LABORATORYCLIA [id number] [address] [place] IMMATURE GRAN % 0.6 % Normal [facility] Comment on above: Order Comment: Speci men Type: BLOOD SPECIMENOrdering Facility: [facility] Address: [address] [place] [address] Performed By: #### 5 7021-8 ####[facility] LABORATORYCLIA [id number] [address] [place] IMMATURE GRAN ABS 0.08 k/uL Normal <0.10 [facility] Comment on above: Order Comment: Speci men Type: BLOOD SPECIMENOrdering Facility: [facility] Address: [address] [place] [address] Performed By: #### 5 7021-8 ####[facility] LABORATORYCLIA [id number] [address] Lymphocytes (Bld) [#/Vol] 2.45 10*3/uL Normal 1.00-4.00 [facility] Comment on above: Order Comment: Speci men Type: BLOOD SPECIMENOrdering Facility: [facility] Address: [address] [place] [address] Performed By: #### 5 7021-8 ####[facility] LABORATORYCLIA [id number] [address] Lymphocytes/100 WBC (Bld) 19.7 % Normal [facility] Comment on above: Order Comment: Speci men Type: BLOOD SPECIMENOrdering Facility: [facility] Address: [address] [place] [address] Performed By: #### 5 7021-8 ####[facility] LABORATORYCLIA [id number] [address] [place] MCH (RBC) [Entitic mass] 28.2 pg Normal 26.0-34.0 [facility] Comment on above: Order Comment: Speci men Type: BLOOD SPECIMENOrdering Facility: [facility] Address: [address] [place] [address] Performed By: #### 5 7021-8 ####[facility] LABORATORYCLIA [id number] [address] MCHC (RBC) [Mass/Vol] 30.3 g/dL Low 30.5-36.0 [facility] Comment on above: Order Comment: Speci men Type: BLOOD SPECIMENOrdering Facility: [facility] Address: [address] [place] [address] Performed By: #### 5 7021-8 ####[facility] LABORATORYCLIA [id number] [address] [place] MCV (RBC) [Entitic vol] 93.0 fL Normal 80.0-100.0 [facility] Comment on above: Order Comment: Speci men Type: BLOOD SPECIMENOrdering Facility: [facility] Address: [address] [place] [address] Performed By: #### 5 7021-8 ####[facility] LABORATORYCLIA [id number] [address] Monocytes (Bld) [#/Vol] 0.72 10*3/uL Normal <0.87 [facility] Comment on above: Order Comment: Speci men Type: BLOOD SPECIMENOrdering Facility: [facility] Address: [address] [place] [address] Performed By: #### 5 7021-8 ####[facility] LABORATORYCLIA [id number] [address] Monocytes/100 WBC (Bld) 5.8 % Normal [facility] Comment on above: Order Comment: Speci men Type: BLOOD SPECIMENOrdering Facility: [facility] Address: [address] [place] [address] Performed By: #### 5 7021-8 ####[facility] LABORATORYCLIA [id number] [address] [place] Neutrophils (Bld) [#/Vol] 8.92 10*3/uL High 1.45-7.50 [facility] Comment on above: Order Comment: Speci men Type: BLOOD SPECIMENOrdering Facility: [facility] Address: [address] [address] Performed By: #### 5 7021-8 ####[facility] LABORATORYCLIA [id number] [address] Neutrophils/100 WBC (Bld) 71.6 % Normal [facility] Comment on above: Order Comment: Speci men Type: BLOOD SPECIMENOrdering Facility: [facility] Address: [address] [place] [address] Performed By: #### 5 7021-8 ####[facility] LABORATORYCLIA [id number] [address] [place] Nucleated RBC (Bld) [#/Vol] 10*3/uL Normal <0.01 [facility] Comment on above: Order Comment: Speci men Type: BLOOD SPECIMENOrdering Facility: [facility] Address: [address] [place] [address] Performed By: #### 5 7021-8 ####[facility] LABORATORYCLIA [id number] [address] [place] Nucleated RBC/100 WBC (Bld) [Ratio] 0.0 /100 WBC Normal [facility] Comment on above: Order Comment: Speci men Type: BLOOD SPECIMENOrdering Facility: [facility] Address: [address] [place] [address] Performed By: #### 5 7021-8 ####[facility] LABORATORYCLIA [id number] [address] [place] Platelet mean volume (Bld) [Entitic vol] 10.2 fL Normal 9.0-12.7 [facility] Comment on above: Order Comment: Speci men Type: BLOOD SPECIMENOrdering Facility: [facility] Address: [address] [place] [address] Performed By: #### 5 7021-8 ####[facility] LABORATORYCLIA [id number] [address] [place] Platelets (Bld) [#/Vol] 352 10*3/uL Normal 150-400 [facility] Comment on above: Order Comment: Speci men Type: BLOOD SPECIMENOrdering Facility: [facility] Address: [address] [place] [address] Performed By: #### 5 7021-8 ####[facility] LABORATORYCLIA [id number] [address] STATES OF [facility] RBC (Bld) [#/Vol] 3.30 10*6/uL Low 4.20-6.00 [facility] Comment on above: Order Comment: Speci men Type: BLOOD SPECIMENOrdering Facility: [facility] Address: [address] [place] [address] Performed By: #### 5 7021-8 ####[facility] LABORATORYCLIA [id number] [address] WBC (Bld) [#/Vol] 12.46 10*3/uL High 3.70-11.00 [facility] Comment on above: Order Comment: Speci men Type: BLOOD SPECIMENOrdering Facility: [facility] Address: [address] [place] [address] Performed By: #### 5 7021-8 ####[facility] LABORATORYCLIA [id number] [address] CONSULT PROGon 08-03-2021 CONSULT PROG Normal [facility] Magnesium SerPl-ncon 08-03 Magnesium [Mass/Vol] 2.2 mg/dL Normal 1.7-2.3 [facility] Comment on above: Order Comment: Speci men Type: BLOOD SPECIMENOrdering Facility: [facility] Address: [address] [place] [address] Performed By: #### 2 4321-2, 57817-7, 2777-1 ####[facility] LABORATORYCLIA [id number] [address] NURSING PROGon 08-03-2021 NURSING PROG Normal [facility] Phosphate SerPl-mCncon 08-03 Phosphate [Mass/Vol] 4.2 mg/dL Normal 2.7-4.8 [facility] Comment on above: Order Comment: Speci men Type: BLOOD SPECIMENOrdering Facility: [facility] Address: [address] [place] [address] Performed By: #### 2 4321-2, 55716-4, 2777-1 ####[facility] LABORATORYCLIA [id number] [place] [address] [place] aPTT PPPon 08-03-2021 aPTT Coag (PPP) [Time] 50.0 s High 23.0-32.[address] [facility] Comment on above: Order Comment: Speci men Type: BLOOD SPECIMENOrdering Facility: [facility] Address: [address] [place] [address] Performed By: #### 1 4979-9 ####[facility] LABORATORYCLIA [id number] [address] [place] CBC W Auto Differential pane l (Bld)on 08-02-2021 Basophils (Bld) [#/Vol] 10*3/uL Normal <0.11 [facility] Comment on above: Order Comment: Speci men Type: BLOOD SPECIMENOrdering Facility: [facility] Address: [address] [place] [address] Performed By: #### 5 7021-8 ####[facility] LABORATORYCLIA [id number] [address] [place] Basophils/100 WBC (Bld) 0.2 % Normal [facility] Comment on above: Order Comment: Speci men Type: BLOOD SPECIMENOrdering Facility: [facility] Address: [address] [place] [address] Performed By: #### 5 7021-8 ####[facility] LABORATORYCLIA [id number] [address] [place] Differential cell count method Nom (Bld) Auto Normal [facility] Comment on above: Order Comment: Speci men Type: BLOOD SPECIMENOrdering Facility: [facility] Address: [address] [address] Performed By: #### 5 7021-8 ####[facility] LABORATORYCLIA [id number] [address] [place] Eosinophils (Bld) [#/Vol] 10*3/uL Normal <0.46 [facility] Comment on above: Order Comment: Speci men Type: BLOOD SPECIMENOrdering Facility: [facility] Address: [address] [address] Performed By: #### 5 7021-8 ####[facility] LABORATORYCLIA [id number] [address] Eosinophils/100 WBC (Bld) 0.0 % Normal [facility] Comment on above: Order Comment: Speci men Type: BLOOD SPECIMENOrdering Facility: [facility] Address: [address] [place] [address] Performed By: #### 5 7021-8 ####[facility] LABORATORYCLIA [id number] [address] [place] Erythrocyte distribution width (RBC) [Ratio] 17.3 % High 11.5-15.0 [facility] Comment on above: Order Comment: Speci men Type: BLOOD SPECIMENOrdering Facility: [facility] Address: [address] [place] [address] Performed By: #### 5 7021-8 ####[facility] LABORATORYCLIA [id number] [address] [place] Hematocrit (Bld) [Volume fraction] 30.8 % Low 39.0-51.0 [facility] Comment on above: Order Comment: Speci men Type: BLOOD SPECIMENOrdering Facility: [facility] Address: [facility] [place] [address] Performed By: #### 5 7021-8 ####[facility] LABORATORYCLIA [id number] [address] [place] Hemoglobin (Bld) [Mass/Vol] 9.7 g/dL Low 13.0-17.0 [facility] Comment on above: Order Comment: Speci men Type: BLOOD SPECIMENOrdering Facility: [facility] Address: [address] [place] [address] Performed By: #### 5 7021-8 ####[facility] LABORATORYCLIA [id number] [address] IMMATURE GRAN % 0.5 % Normal [facility] Comment on above: Order Comment: Speci men Type: BLOOD SPECIMENOrdering Facility: [facility] Address: [address] [place] [address] Performed By: #### 5 7021-8 ####[facility] LABORATORYCLIA [id number] [address] IMMATURE GRAN ABS 0.07 k/uL Normal <0.10 [facility] Comment on above: Order Comment: Speci men Type: BLOOD SPECIMENOrdering Facility: [facility] Address: [address] [place] [address] Performed By: #### 5 7021-8 ####[facility] LABORATORYCLIA [id number] [address] Lymphocytes (Bld) [#/Vol] 1.60 10*3/uL Normal 1.00-4.00 [facility] Comment on above: Order Comment: Speci men Type: BLOOD SPECIMENOrdering Facility: [facility] Address: [address] [place] [address] Performed By: #### 5 7021-8 ####[facility] LABORATORYCLIA [id number] [address] Lymphocytes/100 WBC (Bld) 12.1 % Normal [facility] Comment on above: Order Comment: Speci men Type: BLOOD SPECIMENOrdering Facility: [facility] Address: [address] [place] [address] Performed By: #### 5 7021-8 ####[facility] LABORATORYCLIA [id number] [address] [place] MCH (RBC) [Entitic mass] 28.6 pg Normal 26.0-34.0 [facility] Comment on above: Order Comment: Speci men Type: BLOOD SPECIMENOrdering Facility: [facility] Address: [address] [place] [address] Performed By: #### 5 7021-8 ####[facility] LABORATORYCLIA [id number] [address] [place] MCHC (RBC) [Mass/Vol] 31.5 g/dL Normal 30.5-36.0 [facility] Comment on above: Order Comment: Speci men Type: BLOOD SPECIMENOrdering Facility: [facility] Address: [address] [place] [address] Performed By: #### 5 7021-8 ####[facility] LABORATORYCLIA [id number] [address] [place] MCV (RBC) [Entitic vol] 90.9 fL Normal 80.0-100.0 [facility] Comment on above: Order Comment: Speci men Type: BLOOD SPECIMENOrdering Facility: [facility] Address: [address] [place] [address] Performed By: #### 5 7021-8 ####[facility] LABORATORYCLIA [id number] [address] OF [facility] Monocytes (Bld) [#/Vol] 0.39 10*3/uL Normal <0.87 [facility] Comment on above: Order Comment: Speci men Type: BLOOD SPECIMENOrdering Facility: [facility] Address: [address] [place] [address] Performed By: #### 5 7021-8 ####[facility] LABORATORYCLIA [id number] [address] Monocytes/100 WBC (Bld) 3.0 % Normal [facility] Comment on above: Order Comment: Speci men Type: BLOOD SPECIMENOrdering Facility: [facility] Address: [address] [place] [address] Performed By: #### 5 7021-8 ####[facility] LABORATORYCLIA [id number] [address] [place] Neutrophils (Bld) [#/Vol] 11.09 10*3/uL High 1.45-7.50 [facility] Comment on above: Order Comment: Speci men Type: BLOOD SPECIMENOrdering Facility: [facility] Address: [address] [place] [address] Performed By: #### 5 7021-8 ####[facility] LABORATORYCLIA [id number] [address] Neutrophils/100 WBC (Bld) 84.2 % Normal [facility] Comment on above: Order Comment: Speci men Type: BLOOD SPECIMENOrdering Facility: [facility] Address: [address] [place] [address] Performed By: #### 5 7021-8 ####[facility] LABORATORYCLIA [id number] [address] Nucleated RBC (Bld) [#/Vol] 10*3/uL Normal <0.01 [facility] Comment on above: Order Comment: Speci men Type: BLOOD SPECIMENOrdering Facility: [facility] Address: [address] [place] [address] Performed By: #### 5 7021-8 ####[facility] LABORATORYCLIA [id number] [address] Nucleated RBC/100 WBC (Bld) [Ratio] 0.0 /100 WBC Normal [facility] Comment on above: Order Comment: Speci men Type: BLOOD SPECIMENOrdering Facility: [facility] Address: [address] [place] [address] Performed By: #### 5 7021-8 ####[facility] LABORATORYCLIA [id number] [address] Platelet mean volume (Bld) [Entitic vol] 10.0 fL Normal 9.0-12.7 [facility] Comment on above: Order Comment: Speci men Type: BLOOD SPECIMENOrdering Facility: [facility] Address: [address] [place] [address] Performed By: #### 5 7021-8 ####[facility] LABORATORYCLIA [id number] [address] Platelets (Bld) [#/Vol] 358 10*3/uL Normal 150-400 [facility] Comment on above: Order Comment: Speci men Type: BLOOD SPECIMENOrdering Facility: [facility] Address: [address] [place] [address] Performed By: #### 5 7021-8 ####[facility] LABORATORYCLIA [id number] [address] RBC (Bld) [#/Vol] 3.39 10*6/uL Low 4.20-6.00 [facility] Comment on above: Order Comment: Speci men Type: BLOOD SPECIMENOrdering Facility: [facility] Address: [address] [place] [address] Performed By: #### 5 7021-8 ####[facility] LABORATORYCLIA [id number] [address] WBC (Bld) [#/Vol] 13.17 10*3/uL High 3.70-11.00 [facility] Comment on above: Order Comment: Speci men Type: BLOOD SPECIMENOrdering Facility: [facility] Address: [address] [place] [address] Performed By: #### 5 7021-8 ####[facility] LABORATORYCLIA [id number] [address] OF [facility] NURSING PROGon 08-02-2021 NURSING PROG Normal [facility] THERAPY NTon 08-02-2021 THERAPY NT Normal [facility] aPTT PPPon 08-02-2021 aPTT Coag (PPP) [Time] 54.9 s High 23.0-32.[address] [facility] Comment on above: Order Comment: Speci men Type: BLOOD SPECIMENOrdering Facility: [facility] Address: [address] [place] [address] Performed By: #### 1 4979-9 ####[facility] LABORATORYCLIA [id number] [place] [address] [place] ALLIED HEALTHon 08-01-2021 ALLIED HEALTH Normal [facility] ALLIED HEALTH Normal [facility] Basic metabolic 2000 panelon 08-01-2021 Anion gap [Moles/Vol] 12 mmol/L Normal 9-18 [facility] Comment on above: Order Comment: Speci men Type: BLOOD SPECIMENOrdering Facility: [facility] Address: [address] [place] [address] Performed By: #### 2 4321-2, 33125-1, 11838-5, 2777-1 ####[facility] LABORATORYCLIA [id number] [place] [address] [place] Calcium [Mass/Vol] 9.1 mg/dL Normal 8.5-10.2 [facility] Comment on above: Order Comment: Speci men Type: BLOOD SPECIMENOrdering Facility: [facility] Address: [address] [place] [address] Performed By: #### 2 4321-2, 84959-6, 71960-2, 2777-1 ####[facility] LABORATORYCLIA [id number] [place] [address] [place] Chloride [Moles/Vol] 96 mmol/L Low 97-105 [facility] Comment on above: Order Comment: Speci men Type: BLOOD SPECIMENOrdering Facility: [facility] Address: [address] [place] [address] Performed By: #### 2 4321-2, 23445-7, 34432-2, 2777-1 ####[facility] LABORATORYCLIA [id number] [place] [address] [place] CO2 [Moles/Vol] 27 mmol/L Normal 22-30 [facility] Comment on above: Order Comment: Speci men Type: BLOOD SPECIMENOrdering Facility: [facility] Address: [address] [place] [address] Performed By: #### 2 4321-2, 53788-4, 71683-1, 2777-1 ####[facility] [id number] [place] [address] [place] Creatinine [Mass/Vol] 0.64 mg/dL Low 0.73-1.22 [facility] Comment on above: Order Comment: Speci men Type: BLOOD SPECIMENOrdering Facility: [facility] Address: [address] [place] [address] Performed By: #### 2 4321-2, 05660-7, 94997-7, 277- ####[facility]PITALIA [id number] [address] [place] ESTIMATED GLOMERULAR FILTRATION RATE 102 mL/min/1.73m??? Normal >=60 [facility] Comment on above: Order Comment: Speci men Type: BLOOD SPECIMENOrdering Facility: [facility] Address: [address] [place] [address] Result Comment: Luzmaria mated Glomerular Filtration Rate [...] actual GFR. Performed By: #### 2 4321-2, 81130-8, 89104-9, 2777-1 ####[facility] LABORATORYIA [id number] [place] [address] [place] Glucose [Mass/Vol] 122 mg/dL High 74-99 [facility] Comment on above: Order Comment: Speci men Type: BLOOD SPECIMENOrdering Facility: [facility] Address: [address] [place] [address] Result Comment: The [place] [employer] (ADA) provides guidance for cutoff [...] Standards of Medical Care in Diabetes 2016, [place] [employer]. Diabetes Care. 2016.39(Suppl 1). Performed By: #### 2 4321-2, 12543-7, 42571-2, 7-1 ####[facility] LABORATORYCLIA [id number] [place] [address] [place] Potassium [Moles/Vol] 4.2 mmol/L Normal 3.7-5.1 [facility] Comment on above: Order Comment: Speci francia Type: BLOOD SPECIMENOrdering Facility: [facility] Address: [address] [place] [address] Performed By: #### 2 4321-2, 53997-4, 93499-3, 2776- ####[facility]PITALCLIA [id number] [place] [address] [place] Sodium [Moles/Vol] 135 mmol/L Low 136-144 [facility] Comment on above: Order Comment: Johni francia Type: BLOOD SPECIMENOrdering Facility: [facility] Address: [address] [place] [address] Performed By: #### 2 4321-2, 60042-1, 22296-2, 2776-1 ####[facility] LABORATORYCLIA [id number] [place] [address] [place] Urea nitrogen [Mass/Vol] 36 mg/dL High 9-24 [facility] Comment on above: Order Comment: Johni men Type: BLOOD SPECIMENOrdering Facility: [facility] Address: [address] [place] [address] Performed By: #### 2 4321-2, 13533-5, 24603-9, 7-1 ####[facility] LABORATORYCLIA [id number] [address] [place] CASE MANAGEMon 08-01-2021 CASE MANAGEM Normal [facility] CBC W Auto Differential pane l (Bld)on 08-01-2021 Basophils (Bld) [#/Vol] 0.04 10*3/uL Normal <0.11 [facility] Comment on above: Order Comment: Speci men Type: BLOOD SPECIMENOrdering Facility: [facility] Address: [address] [place] [address] Performed By: #### 5 7021-8 ####[facility] LABORATORYCLIA [id number] [address] STATES [facility] Basophils/100 WBC (Bld) 0.3 % Normal [facility] Comment on above: Order Comment: Speci men Type: BLOOD SPECIMENOrdering Facility: [facility] Address: [address] [place] [address] Performed By: #### 5 7021-8 ####[facility] LABORATORYCLIA [id number] [address] STATES OF [facility] Differential cell count method Nom (Bld) Auto Normal [facility] Comment on above: Order Comment: Speci men Type: BLOOD SPECIMENOrdering Facility: [facility] Address: [address] [place] [address] Performed By: #### 5 7021-8 ####[facility] LABORATORYCLIA [id number] [place] [address] [place] Eosinophils (Bld) [#/Vol] 0.37 10*3/uL Normal <0.46 [facility] Comment on above: Order Comment: Speci men Type: BLOOD SPECIMENOrdering Facility: [facility] Address: [address] [place] [address] Performed By: #### 5 7021-8 ####[facility] LABORATORYCLIA [id number] [address] [place] Eosinophils/100 WBC (Bld) 3.1 % Normal [facility] Comment on above: Order Comment: Speci men Type: BLOOD SPECIMENOrdering Facility: [facility] Address: [address] [place] [address] Performed By: #### 5 7021-8 ####[facility] LABORATORYCLIA [id number] [address] Erythrocyte distribution width (RBC) [Ratio] 17.5 % High 11.5-15.0 [facility] Comment on above: Order Comment: Speci men Type: BLOOD SPECIMENOrdering Facility: [facility] Address: [address] [place] [address] Performed By: #### 5 7021-8 ####[facility] LABORATORYCLIA [id number] [address] Hematocrit (Bld) [Volume fraction] 30.1 % Low 39.0-51.0 [facility] Comment on above: Order Comment: Speci men Type: BLOOD SPECIMENOrdering Facility: [facility] Address: [address] [place] [address] Performed By: #### 5 7021-8 ####[facility] LABORATORYCLIA [id number] [address] Hemoglobin (Bld) [Mass/Vol] 9.1 g/dL Low 13.0-17.0 [facility] Comment on above: Order Comment: Speci men Type: BLOOD SPECIMENOrdering Facility: [facility] Address: [address] [place] [address] Performed By: #### 5 7021-8 ####[facility] LABORATORYCLIA [id number] [address] [place] IMMATURE GRAN % 0.6 % Normal [facility] Comment on above: Order Comment: Speci men Type: BLOOD SPECIMENOrdering Facility: [facility] Address: [address] [place] [address] Performed By: #### 5 7021-8 ####[facility] LABORATORYCLIA [id number] [address] IMMATURE GRAN ABS 0.07 k/uL Normal <0.10 [facility] Comment on above: Order Comment: Speci men Type: BLOOD SPECIMENOrdering Facility: [facility] Address: [address] [place] [address] Performed By: #### 5 7021-8 ####[facility] LABORATORYCLIA [id number] [address] OF [facility] Lymphocytes (Bld) [#/Vol] 2.05 10*3/uL Normal 1.00-4.00 [facility] Comment on above: Order Comment: Speci men Type: BLOOD SPECIMENOrdering Facility: [facility] Address: [address] [place] [address] Performed By: #### 5 7021-8 ####[facility] LABORATORYCLIA [id number] [address] Lymphocytes/100 WBC (Bld) 17.1 % Normal [facility] Comment on above: Order Comment: Speci men Type: BLOOD SPECIMENOrdering Facility: [facility] Address: [address] [place] [address] Performed By: #### 5 7021-8 ####[facility] LABORATORYCLIA [id number] [address] MCH (RBC) [Entitic mass] 27.7 pg Normal 26.0-34.0 [facility] Comment on above: Order Comment: Speci men Type: BLOOD SPECIMENOrdering Facility: [facility] Address: [address] [place] [address] Performed By: #### 5 7021-8 ####[facility] LABORATORYCLIA [id number] [address] MCHC (RBC) [Mass/Vol] 30.2 g/dL Low 30.5-36.0 [facility] Comment on above: Order Comment: Speci men Type: BLOOD SPECIMENOrdering Facility: [facility] Address: [address] [place] [address] Performed By: #### 5 7021-8 ####[facility] LABORATORYCLIA [id number] [place] [address] [place] MCV (RBC) [Entitic vol] 91.5 fL Normal 80.0-100.0 [facility] Comment on above: Order Comment: Speci men Type: BLOOD SPECIMENOrdering Facility: [facility] Address: [address] [place] [address] Performed By: #### 5 7021-8 ####[facility] LABORATORYCLIA [id number] [address] [place] Monocytes (Bld) [#/Vol] 0.53 10*3/uL Normal <0.87 [facility] Comment on above: Order Comment: Speci men Type: BLOOD SPECIMENOrdering Facility: [facility] Address: [address] [place] [address] Performed By: #### 5 7021-8 ####[facility] LABORATORYCLIA [id number] [address] STATES [facility] Monocytes/100 WBC (Bld) 4.4 % Normal [facility] Comment on above: Order Comment: Speci men Type: BLOOD SPECIMENOrdering Facility: [facility] Address: [address] [place] [address] Performed By: #### 5 7021-8 ####[facility] LABORATORYCLIA [id number] [address] [place] Neutrophils (Bld) [#/Vol] 8.91 10*3/uL High 1.45-7.50 [facility] Comment on above: Order Comment: Speci men Type: BLOOD SPECIMENOrdering Facility: [facility] Address: [address] [place] [address] Performed By: #### 5 7021-8 ####[facility] LABORATORYCLIA [id number] [address] [place] Neutrophils/100 WBC (Bld) 74.5 % Normal [facility] Comment on above: Order Comment: Speci men Type: BLOOD SPECIMENOrdering Facility: [facility] Address: [facility] [address] Performed By: #### 5 7021-8 ####[facility] LABORATORYCLIA [id number] [address] Nucleated RBC (Bld) [#/Vol] 10*3/uL Normal <0.01 [facility] Comment on above: Order Comment: Speci men Type: BLOOD SPECIMENOrdering Facility: [facility] Address: [address] [place], [place] [address] Performed By: #### 5 7021-8 ####[facility] LABORATORYCLIA [id number] [address] Nucleated RBC/100 WBC (Bld) [Ratio] 0.0 /100 WBC Normal [facility] Comment on above: Order Comment: Speci men Type: BLOOD SPECIMENOrdering Facility: [facility] Address: [address] [place] [address] Performed By: #### 5 7021-8 ####[facility] LABORATORYCLIA [id number] [address] Platelet mean volume (Bld) [Entitic vol] 10.4 fL Normal 9.0-12.7 [facility] Comment on above: Order Comment: Speci men Type: BLOOD SPECIMENOrdering Facility: [facility] Address: [address] [place], [place] [address] Performed By: #### 5 7021-8 ####[facility] LABORATORYCLIA [id number] [address] Platelets (Bld) [#/Vol] 319 10*3/uL Normal 150-400 [facility] Comment on above: Order Comment: Speci men Type: BLOOD SPECIMENOrdering Facility: [facility] Address: [address] [place], [place] [address] Performed By: #### 5 7021-8 ####[facility] LABORATORYCLIA [id number] [address] RBC (Bld) [#/Vol] 3.29 10*6/uL Low 4.20-6.00 [facility] Comment on above: Order Comment: Speci men Type: BLOOD SPECIMENOrdering Facility: [facility] Address: [address] [place] [address] Performed By: #### 5 7021-8 ####[facility] LABORATORYCLIA [id number] [address] STATES OF [facility] WBC (Bld) [#/Vol] 11.97 10*3/uL High 3.70-11.00 [facility] Comment on above: Order Comment: Speci men Type: BLOOD SPECIMENOrdering Facility: [facility] Address: [address] [place] [address] Performed By: #### 5 7021-8 ####[facility] LABORATORYCLIA [id number] [address] OF [facility] CT BRAIN WO IVCONon 08-02-19 CT BRAIN WO IVCON Normal [facility] Magnesium SerPl-ncon 08-01 Magnesium [Mass/Vol] 2.4 mg/dL High 1.7-2.3 [facility] Comment on above: Order Comment: Speci men Type: BLOOD SPECIMENOrdering Facility: [facility] Address: [address] [place] [address] Performed By: #### 2 4321-2, 73566-0, 13887-5, 2777-1 ####[facility] LABORATORYCLIA [id number] [address] [place] NURSING PROGon 08-01-2021 NURSING PROG Normal [facility] NUTRITIONon 08-01-2021 NUTRITION Normal [facility] Phosphate SerPl-mCncon 08-01 Phosphate [Mass/Vol] 3.3 mg/dL Normal 2.7-4.8 [facility] Comment on above: Order Comment: Speci men Type: BLOOD SPECIMENOrdering Facility: [facility] Address: [address] [place] [address] Performed By: #### 2 4321-2, 17751-1, 13833-8, 2777-1 ####[facility] LABORATORYCLIA [id number] [address] Prealbumin [Mass/Vol]on 07-06 Prealbumin Nephelometry [Mass/Vol] 30 mg/dL Normal - [facility] Comment on above: Order Comment: Speci men Type: BLOOD SPECIMENOrdering Facility: [facility] Address: [address] [place] [address] Performed By: #### 2 4321-2, 17480-9, 13304-2, 2777-1 ####[facility] LABORATORYCLIA [id number] [address] THERAPY NTon 08-01-2021 THERAPY NT Normal [facility] THERAPY NT Normal [facility] TYPE AND SCREENon 08-01-2021 ABO O Normal [facility] Comment on above: Order Comment: Speci men Type: BLOOD SPECIMENOrdering Facility: [facility] Address: [address] [place] [address] Performed By: #### T SCR ####[facility] BLOOD BANKCLIA [id number] [address] HISTORICAL AB SCR STATUS Negative Normal [facility] Comment on above: Order Comment: Speci men Type: BLOOD SPECIMENOrdering Facility: [facility] Address: [address] [place] [address] Performed By: #### T SCR ####[facility] BLOOD BANKCLIA [id number] [address] [place] Rh Nom (Bld) Positive Normal [facility] Comment on above: Order Comment: Speci men Type: BLOOD SPECIMENOrdering Facility: [facility] Address: [address] [place] [address] Performed By: #### T SCR ####[facility] BLOOD BANKCLIA [id number] [address] [place] TYPE AND SCREEN EXPIRATION 08/04/2021 23:59 Normal [facility] Comment on above: Order Comment: Speci men Type: BLOOD SPECIMENOrdering Facility: [facility] Address: [address] [place] [address] Performed By: #### T SCR ####[facility] BLOOD BANKCLIA [id number] [address] OF [facility] XR CHEST 1V FRONTALon 2021 XR CHEST 1V FRONTAL Normal [facility] aPTT PPPon 08-01-2021 aPTT Coag (PPP) [Time] 50.9 s High 23.0-32.[address] [facility] Comment on above: Order Comment: Speci men Type: BLOOD SPECIMENOrdering Facility: [facility] Address: [address] [place] [address] Performed By: #### 1 4979-9 ####[facility] LABORATORYCLIA [id number] [address] CBC W Auto Differential pane l (Bld)on 07-31-2021 Basophils (Bld) [#/Vol] 0.05 10*3/uL Normal <0.11 [facility] Comment on above: Order Comment: Speci men Type: BLOOD SPECIMENOrdering Facility: [facility] Address: [address] [place] [address] Performed By: #### 5 7021-8 ####[facility] LABORATORYCLIA [id number] [address] Basophils/100 WBC (Bld) 0.4 % Normal [facility] Comment on above: Order Comment: Speci men Type: BLOOD SPECIMENOrdering Facility: [facility] Address: [address] [place] [address] Performed By: #### 5 7021-8 ####[facility] LABORATORYCLIA [id number] [address] Differential cell count method Nom (Bld) Auto Normal [facility] Comment on above: Order Comment: Speci men Type: BLOOD SPECIMENOrdering Facility: [facility] Address: [address] [address] Performed By: #### 5 7021-8 ####[facility] LABORATORYCLIA [id number] [address] [place] Eosinophils (Bld) [#/Vol] 0.51 10*3/uL High <0.46 [facility] Comment on above: Order Comment: Speci men Type: BLOOD SPECIMENOrdering Facility: [facility] Address: [address] [place] [address] Performed By: #### 5 7021-8 ####[facility] LABORATORYCLIA [id number] [address] Eosinophils/100 WBC (Bld) 4.5 % Normal [facility] Comment on above: Order Comment: Speci men Type: BLOOD SPECIMENOrdering Facility: [facility] Address: [address] [place] [address] Performed By: #### 5 7021-8 ####[facility] LABORATORYCLIA [id number] [address] Erythrocyte distribution width (RBC) [Ratio] 17.5 % High 11.5-15.0 [facility] Comment on above: Order Comment: Speci men Type: BLOOD SPECIMENOrdering Facility: [facility] Address: [address] [place] [address] Performed By: #### 5 7021-8 ####[facility] LABORATORYCLIA [id number] [address] Hematocrit (Bld) [Volume fraction] 30.4 % Low 39.0-51.0 [facility] Comment on above: Order Comment: Speci men Type: BLOOD SPECIMENOrdering Facility: [facility] Address: [address] [place] [address] Performed By: #### 5 7021-8 ####[facility] LABORATORYCLIA [id number] [address] Hemoglobin (Bld) [Mass/Vol] 9.2 g/dL Low 13.0-17.0 [facility] Comment on above: Order Comment: Speci men Type: BLOOD SPECIMENOrdering Facility: [facility] Address: [address] [place] [address] Performed By: #### 5 7021-8 ####[facility] LABORATORYCLIA [id number] [address] IMMATURE GRAN % 0.5 % Normal [facility] Comment on above: Order Comment: Speci men Type: BLOOD SPECIMENOrdering Facility: [facility] Address: [address] [place] [address] Performed By: #### 5 7021-8 ####[facility] LABORATORYCLIA [id number] [address] IMMATURE GRAN ABS 0.06 k/uL Normal <0.10 [facility] Comment on above: Order Comment: Speci men Type: BLOOD SPECIMENOrdering Facility: [facility] Address: [address] [place] [address] Performed By: #### 5 7021-8 ####[facility] LABORATORYCLIA [id number] [address] [place] Lymphocytes (Bld) [#/Vol] 1.99 10*3/uL Normal 1.00-4.00 [facility] Comment on above: Order Comment: Speci men Type: BLOOD SPECIMENOrdering Facility: [facility] Address: [address] [place] [address] Performed By: #### 5 7021-8 ####[facility] LABORATORYCLIA [id number] [address] Lymphocytes/100 WBC (Bld) 17.6 % Normal [facility] Comment on above: Order Comment: Speci men Type: BLOOD SPECIMENOrdering Facility: [facility] Address: [address] [place] [address] Performed By: #### 5 7021-8 ####[facility] LABORATORYCLIA [id number] [address] MCH (RBC) [Entitic mass] 28.4 pg Normal 26.0-34.0 [facility] Comment on above: Order Comment: Speci men Type: BLOOD SPECIMENOrdering Facility: [facility] Address: [address] [place] [address] Performed By: #### 5 7021-8 ####[facility] LABORATORYCLIA [id number] [address] MCHC (RBC) [Mass/Vol] 30.3 g/dL Low 30.5-36.0 [facility] Comment on above: Order Comment: Speci men Type: BLOOD SPECIMENOrdering Facility: [facility] Address: [address] [place] [address] Performed By: #### 5 7021-8 ####[facility] LABORATORYCLIA [id number] [address] MCV (RBC) [Entitic vol] 93.8 fL Normal 80.0-100.0 [facility] Comment on above: Order Comment: Speci men Type: BLOOD SPECIMENOrdering Facility: [facility] Address: [address] [place] [address] Performed By: #### 5 7021-8 ####[facility] LABORATORYCLIA [id number] [address] STATES [facility] Monocytes (Bld) [#/Vol] 0.57 10*3/uL Normal <0.87 [facility] Comment on above: Order Comment: Speci men Type: BLOOD SPECIMENOrdering Facility: [facility] Address: [address] [place] [address] Performed By: #### 5 7021-8 ####[facility] LABORATORYCLIA [id number] [address] Monocytes/100 WBC (Bld) 5.0 % Normal [facility] Comment on above: Order Comment: Speci men Type: BLOOD SPECIMENOrdering Facility: [facility] Address: [address] [place] [address] Performed By: #### 5 7021-8 ####[facility]ORATORYCLIA [id number] [address] [place] Neutrophils (Bld) [#/Vol] 8.12 10*3/uL High 1.45-7.50 [facility] Comment on above: Order Comment: Speci men Type: BLOOD SPECIMENOrdering Facility: [facility] Address: [address] [place] [address] Performed By: #### 5 7021-8 ####[facility] LABORATORYCLIA [id number] [address] Neutrophils/100 WBC (Bld) 72.0 % Normal [facility] Comment on above: Order Comment: Speci men Type: BLOOD SPECIMENOrdering Facility: [facility] Address: [address] [place] [address] Performed By: #### 5 7021-8 ####[facility] LABORATORYCLIA [id number] [address] [place] Nucleated RBC (Bld) [#/Vol] 10*3/uL Normal <0.01 [facility] Comment on above: Order Comment: Speci men Type: BLOOD SPECIMENOrdering Facility: [facility] Address: [address] [place] [address] Performed By: #### 5 7021-8 ####[facility] LABORATORYCLIA [id number] [address] Nucleated RBC/100 WBC (Bld) [Ratio] 0.0 /100 WBC Normal [facility] Comment on above: Order Comment: Speci men Type: BLOOD SPECIMENOrdering Facility: [facility] Address: [address] [place] [address] Performed By: #### 5 7021-8 ####[facility] LABORATORYCLIA [id number] [address] [place] Platelet mean volume (Bld) [Entitic vol] 10.9 fL Normal 9.0-12.7 [facility] Comment on above: Order Comment: Speci men Type: BLOOD SPECIMENOrdering Facility: [facility] Address: [address] [place] [address] Performed By: #### 5 7021-8 ####[facility] LABORATORYCLIA [id number] [address] OF [facility] Platelets (Bld) [#/Vol] 303 10*3/uL Normal 150-400 [facility] Comment on above: Order Comment: Speci men Type: BLOOD SPECIMENOrdering Facility: [facility] Address: [address] [place] [address] Performed By: #### 5 7021-8 ####[facility] LABORATORYCLIA [id number] [address] STATES OF [facility] RBC (Bld) [#/Vol] 3.24 10*6/uL Low 4.20-6.00 [facility] Comment on above: Order Comment: Speci men Type: BLOOD SPECIMENOrdering Facility: [facility] Address: [address] [place] [address] Performed By: #### 5 7021-8 ####[facility] LABORATORYCLIA [id number] [address] WBC (Bld) [#/Vol] 11.30 10*3/uL High 3.70-11.00 [facility] Comment on above: Order Comment: Speci men Type: BLOOD SPECIMENOrdering Facility: [facility] Address: [address] [place] [address] Performed By: #### 5 7021-8 ####[facility] LABORATORYCLIA [id number] [address] [place] NURSING PROGon 07-31-2021 NURSING PROG Normal [facility] aPTT PPPon 07-31-2021 aPTT Coag (PPP) [Time] 64.9 s High 23.0-32.[address] [facility] Comment on above: Order Comment: Speci men Type: BLOOD SPECIMENOrdering Facility: [facility] Address: [address] [address] Performed By: #### 1 4979-9 ####[facility] LABORATORYCLIA [id number] [address] OF [facility] ALLIED HEALTHon 07-30-2021 ALLIED HEALTH Normal [facility] Bacteria CSF Culton 07-31-19 22 Bacteria identified Cx Nom (CSF) CULTURE, CSF: No growth 14 days GRAM STAIN: No organisms seen Few Mononuclear cells Rare Polymorphonuclear leukocytes Gram stain performed on cytospun specimen. Normal [facility] Comment on above: Performed By: #### 6 06-4 ####[facility] LABORATORYCLIA [id number] [address] OF [facility] Basic metabolic 2000 panelon 07-30-2021 Anion gap [Moles/Vol] 9 mmol/L Normal 9-18 [facility] Comment on above: Order Comment: Speci men Type: BLOOD SPECIMENOrdering Facility: [facility] Address: [address] [place] [address] Performed By: #### 2 777-1, 03255-6, ####[facility]CL[facility] [id number] [place] [address] [place] Calcium [Mass/Vol] 8.9 mg/dL Normal 8.5-10.2 [facility] Comment on above: Order Comment: Speci men Type: BLOOD SPECIMENOrdering Facility: [facility] Address: [address] [place] [address] Performed By: #### 2 777-1, 59413-1, ####[facility] LABORATORYCLIA [id number] [place] [address] [place] Chloride [Moles/Vol] 95 mmol/L Low 97-105 [facility] Comment on above: Order Comment: Speci men Type: BLOOD SPECIMENOrdering Facility: [facility] Address: [address] [place] [address] Performed By: #### 2 777-1, 24120-4, ####[facility] LABORATORYCLIA [id number] [place] [address] [place] CO2 [Moles/Vol] 28 mmol/L Normal 22-30 [facility] Comment on above: Order Comment: Speci men Type: BLOOD SPECIMENOrdering Facility: [facility] Address: [address] [place] [address] Performed By: #### 2 777-1, , ####[facility] LABORATORYCLIA [id number] [place] [address] [place] [facility] Creatinine [Mass/Vol] 0.67 mg/dL Low 0.73-1.22 [facility] Comment on above: Order Comment: Speci men Type: BLOOD SPECIMENOrdering Facility: [facility] Address: [address] [place] [address] Performed By: #### 2 777-1, , ####[facility]ITALCLIA [id number] [address] ESTIMATED GLOMERULAR FILTRATION RATE 101 mL/min/1.73m??? Normal >=60 [facility] Comment on above: Order Comment: Speci men Type: BLOOD SPECIMENOrdering Facility: [facility] Address: [address] [place] [address] Result Comment: Luzmaria mated Glomerular Filtration Rate [...] GFR. Performed By: #### 2 777-1, , ####[facility] LABORATORYCLIA [id number] [place] [address] [place] Glucose [Mass/Vol] 125 mg/dL High 74-99 [facility] Comment on above: Order Comment: Speci men Type: BLOOD SPECIMENOrdering Facility: [facility] Address: [address] [place], [place] [phone] Result Comment: The [place] [employer] (ADA) provides guidance for cutoff [...] Standards of Medical Care in Diabetes 2016, [place] [employer]. Diabetes Care. 2016.39(Suppl 1). Performed By: #### 2 777-1, 71371-1, ####[facility] LABORATORYCLIA [id number] [place] [address] [place] Potassium [Moles/Vol] 3.9 mmol/L Normal 3.7-5.1 [facility] Comment on above: Order Comment: Shira feldman Type: BLOOD SPECIMENOrdering Facility: [facility] Address: [address] [place], [place] [phone] Performed By: #### 2 777-1, , ####[facility] LABORATORYCLIA [id number] [place] [address] [place] Sodium [Moles/Vol] 132 mmol/L Low 136-144 [facility] Comment on above: Order Comment: Shira feldman Type: BLOOD SPECIMENOrdering Facility: [facility] Address: [address] [place], [place] [phone] Performed By: #### 2 777-1, , ####[facility] LABORATORYCLIA [id number] [place] [address] [place] Urea nitrogen [Mass/Vol] 38 mg/dL High 9-24 [facility] Comment on above: Order Comment: Johni men Type: BLOOD SPECIMENOrdering Facility: [facility] Address: [address] [place] [address] Performed By: #### 2 777-1, 87675-5, 79360-6 ####[facility] LABORATORYCLIA [id number] [address] STATES OF [facility] CBC W Auto Differential pane l (Bld)on 07-30-2021 Basophils (Bld) [#/Vol] 0.04 10*3/uL Normal <0.11 [facility] Comment on above: Order Comment: Speci men Type: BLOOD SPECIMENOrdering Facility: [facility] Address: [address] [place] [address] Performed By: #### 5 7021-8 ####[facility] LABORATORYCLIA [id number] [address] [place] Basophils/100 WBC (Bld) 0.4 % Normal [facility] Comment on above: Order Comment: Speci men Type: BLOOD SPECIMENOrdering Facility: [facility] Address: [address] [place] [address] Performed By: #### 5 7021-8 ####[facility] LABORATORYCLIA [id number] [address] Differential cell count method Nom (Bld) Auto Normal [facility] Comment on above: Order Comment: Speci men Type: BLOOD SPECIMENOrdering Facility: [facility] Address: [address] [place] [address] Performed By: #### 5 7021-8 ####[facility] LABORATORYCLIA [id number] [address] [place] Eosinophils (Bld) [#/Vol] 0.30 10*3/uL Normal <0.46 [facility] Comment on above: Order Comment: Speci men Type: BLOOD SPECIMENOrdering Facility: [facility] Address: [address] [place] [address] Performed By: #### 5 7021-8 ####[facility]ORATORYCLIA [id number] [address] Eosinophils/100 WBC (Bld) 2.7 % Normal [facility] Comment on above: Order Comment: Speci men Type: BLOOD SPECIMENOrdering Facility: [facility] Address: [address] [place] [address] Performed By: #### 5 7021-8 ####[facility] LABORATORYCLIA [id number] [address] Erythrocyte distribution width (RBC) [Ratio] 17.2 % High 11.5-15.0 [facility] Comment on above: Order Comment: Speci men Type: BLOOD SPECIMENOrdering Facility: [facility] Address: [address] [place] [address] Performed By: #### 5 7021-8 ####[facility] LABORATORYCLIA [id number] [address] Hematocrit (Bld) [Volume fraction] 30.8 % Low 39.0-51.0 [facility] Comment on above: Order Comment: Speci men Type: BLOOD SPECIMENOrdering Facility: [facility] Address: [address] [place] [address] Performed By: #### 5 7021-8 ####[facility] LABORATORYCLIA [id number] [address] [place] Hemoglobin (Bld) [Mass/Vol] 9.4 g/dL Low 13.0-17.0 [facility] Comment on above: Order Comment: Speci men Type: BLOOD SPECIMENOrdering Facility: [facility] Address: [address] [place] [address] Performed By: #### 5 7021-8 ####[facility] LABORATORYCLIA [id number] [address] IMMATURE GRAN % 0.5 % Normal [facility] Comment on above: Order Comment: Speci men Type: BLOOD SPECIMENOrdering Facility: [facility] Address: [address] [place] [address] Performed By: #### 5 7021-8 ####[facility] LABORATORYCLIA [id number] [address] IMMATURE GRAN ABS 0.06 k/uL Normal <0.10 [facility] Comment on above: Order Comment: Speci men Type: BLOOD SPECIMENOrdering Facility: [facility] Address: [address] [place] [address] Performed By: #### 5 7021-8 ####[facility] LABORATORYCLIA [id number] [address] Lymphocytes (Bld) [#/Vol] 1.68 10*3/uL Normal 1.00-4.00 [facility] Comment on above: Order Comment: Speci men Type: BLOOD SPECIMENOrdering Facility: [facility] Address: [address] [place] [address] Performed By: #### 5 7021-8 ####[facility] LABORATORYCLIA [id number] [address] Lymphocytes/100 WBC (Bld) 15.3 % Normal [facility] Comment on above: Order Comment: Speci men Type: BLOOD SPECIMENOrdering Facility: [facility] Address: [address] [place] [address] Performed By: #### 5 7021-8 ####[facility] LABORATORYCLIA [id number] [address] MCH (RBC) [Entitic mass] 28.0 pg Normal 26.0-34.0 [facility] Comment on above: Order Comment: Speci men Type: BLOOD SPECIMENOrdering Facility: [facility] Address: [address] [place] [address] Performed By: #### 5 7021-8 ####[facility] LABORATORYCLIA [id number] [address] MCHC (RBC) [Mass/Vol] 30.5 g/dL Normal 30.5-36.0 [facility] Comment on above: Order Comment: Speci men Type: BLOOD SPECIMENOrdering Facility: [facility] Address: [address] [address] Performed By: #### 5 7021-8 ####[facility] LABORATORYCLIA [id number] [address] MCV (RBC) [Entitic vol] 91.7 fL Normal 80.0-100.0 [facility] Comment on above: Order Comment: Speci men Type: BLOOD SPECIMENOrdering Facility: [facility] Address: [address] [place] [address] Performed By: #### 5 7021-8 ####[facility] LABORATORYCLIA [id number] [address] [place] Monocytes (Bld) [#/Vol] 0.53 10*3/uL Normal <0.87 [facility] Comment on above: Order Comment: Speci men Type: BLOOD SPECIMENOrdering Facility: [facility] Address: [address] [place] [address] Performed By: #### 5 7021-8 ####[facility] LABORATORYCLIA [id number] [address] Monocytes/100 WBC (Bld) 4.8 % Normal [facility] Comment on above: Order Comment: Speci men Type: BLOOD SPECIMENOrdering Facility: [facility] Address: [address] [place] [address] Performed By: #### 5 7021-8 ####[facility] LABORATORYCLIA [id number] [address] [place] Neutrophils (Bld) [#/Vol] 8.39 10*3/uL High 1.45-7.50 [facility] Comment on above: Order Comment: Speci men Type: BLOOD SPECIMENOrdering Facility: [facility] Address: [address] [place] [address] Performed By: #### 5 7021-8 ####[facility] LABORATORYCLIA [id number] [address] Neutrophils/100 WBC (Bld) 76.3 % Normal [facility] Comment on above: Order Comment: Speci men Type: BLOOD SPECIMENOrdering Facility: [facility] Address: [address] [address] Performed By: #### 5 7021-8 ####[facility] LABORATORYCLIA [id number] [address] [place] Nucleated RBC (Bld) [#/Vol] 10*3/uL Normal <0.01 [facility] Comment on above: Order Comment: Speci men Type: BLOOD SPECIMENOrdering Facility: [facility] Address: [address] [place] [address] Performed By: #### 5 7021-8 ####[facility] LABORATORYCLIA [id number] [address] [place] Nucleated RBC/100 WBC (Bld) [Ratio] 0.0 /100 WBC Normal [facility] Comment on above: Order Comment: Speci men Type: BLOOD SPECIMENOrdering Facility: [facility] Address: [address] [place] [address] Performed By: #### 5 7021-8 ####[facility] LABORATORYCLIA [id number] [address] [place] Platelet mean volume (Bld) [Entitic vol] 10.9 fL Normal 9.0-12.7 [facility] Comment on above: Order Comment: Speci men Type: BLOOD SPECIMENOrdering Facility: [facility] Address: [address] Performed By: #### 5 7021-8 ####[facility] LABORATORYCLIA [id number] [address] [place] Platelets (Bld) [#/Vol] 287 10*3/uL Normal 150-400 [facility] Comment on above: Order Comment: Speci men Type: BLOOD SPECIMENOrdering Facility: [facility] Address: [address] [place], [place] [id number] Performed By: #### 5 7021-8 ####[facility] LABORATORYCLIA [id number] [address] [place] RBC (Bld) [#/Vol] 3.36 10*6/uL Low 4.20-6.00 [facility] Comment on above: Order Comment: Speci men Type: BLOOD SPECIMENOrdering Facility: [facility] Address: [address] [place] [address] Performed By: #### 5 7021-8 ####[facility] LABORATORYCLIA [id number] [address] WBC (Bld) [#/Vol] 11.00 10*3/uL Normal 3.70-11.00 [facility] Comment on above: Order Comment: Speci men Type: BLOOD SPECIMENOrdering Facility: [facility] Address: [address] [place] [address] Performed By: #### 5 7021-8 ####[facility] LABORATORYCLIA [id number] [address] CSF MANUAL DIFFon 07-30-2021 DIF TTL, CSF 100 cells counted Normal [facility] Comment on above: Order Comment: Speci men Type: CEREBROSPINAL FLUIDOrdering Facility: [facility] Address: [address] [place] [address] Performed By: #### L [id number], [id number], 62057-4 ####[facility] LABORATORYCLIA [id number] [address] [place] EOSIN%, CSF 0 % Normal [facility] Comment on above: Order Comment: Speci men Type: CEREBROSPINAL FLUIDOrdering Facility: [facility] Address: [address] [place] [address] Performed By: #### L [id number], [id number], 73120-4 ####[facility]ORATORYCLIA [id number] [address] [place] LYMPH%, CSF 75 % Normal 50-90 [facility] Comment on above: Order Comment: Speci men Type: CEREBROSPINAL FLUIDOrdering Facility: [facility] Address: [address] [place] [address] Performed By: #### L [id number], [id number], 12226-7 ####[facility]ATORYCLIA [id number] [place] [address] [place] MACRO%, CSF 9 % High <1 [facility] Comment on above: Order Comment: Speci men Type: CEREBROSPINAL FLUIDOrdering Facility: [facility] Address: [address] [place] [address] Performed By: #### L [id number], [id number], 84552-4 ####[facility]ATORYCLIA [id number] [address] [place] MONO%, CSF 10 % Normal 10-50 [facility] Comment on above: Order Comment: Speci men Type: CEREBROSPINAL FLUIDOrdering Facility: [facility] Address: [address] [place] [address] Performed By: #### L [id number], SOS9317, 35413-7 ####[facility]ORATORYCLIA [id number] [address] OTHER CL%, CSF 4 % Normal [facility] Comment on above: Order Comment: Speci men Type: CEREBROSPINAL FLUIDOrdering Facility: [facility] Address: [address] [place] [address] Result Comment: Path review to follow. Performed By: #### L [id number], [id number], 29002-3 ####[facility]ATORYCLIA [id number] [address] [place] REAC LYMPH %, CSF 2 % Normal [facility] Comment on above: Order Comment: Speci men Type: CEREBROSPINAL FLUIDOrdering Facility: [facility] Address: [address] [place] [address] Performed By: #### L [id number], [id number], 58865-6 ####[facility]ATORYCLIA [id number] [address] CSF PATHOLOGIST INTERP (LAB REFLEX ORDER-NO BILL)on 07-30-2021 CSF STAFF REVIEW Negative Normal [facility] Comment on above: Order Comment: Speci men Type: CEREBROSPINAL FLUIDOrdering Facility: [facility] Address: [address] [place] [address] Performed By: #### L [id number], HKW8151, 04450-7 ####[facility]ATORYCLIA [id number] [address] Pathologist name Reviewed by Eloise rebolledo MD Normal [facility] Comment on above: Order Comment: Speci men Type: CEREBROSPINAL FLUIDOrdering Facility: [facility] Address: [address] [place] [address] Performed By: #### L [id number], [id number], 64008-7 ####[facility]ATORYCLIA [id number] [address] BRAIN WO IVCONon 07-31-[address] BRAIN WO IVCON Normal [facility] Cell count panel (CSF)on Clarity (CSF) Clear Normal Clear [facility] Comment on above: Order Comment: Speci men Type: CEREBROSPINAL FLUIDOrdering Facility: [facility] Address: [address] [place] [address] Performed By: #### L [id number], PVK2130, 03147-1 ####[facility]ATORYCLIA [id number] [address] [place] Clarity (Unsp spec) Clear Normal Clear [facility] Comment on above: Order Comment: Speci men Type: CEREBROSPINAL FLUIDOrdering Facility: [facility] Address: [address] [place] [address] Performed By: #### L [id number], OSW7529, 51678-5 ####[facility]ATORYCLIA [id number] [address] OF [facility] Color (CSF) Colorless Normal Colorless [facility] Comment on above: Order Comment: Speci men Type: CEREBROSPINAL FLUIDOrdering Facility: [facility] Address: [address] Performed By: #### L [id number], TTB6021, 60000-7 ####[facility]ORATORYCLIA [id number] [address] Color (Spun CSF) Colorless Normal Colorless [facility] Comment on above: Order Comment: Speci men Type: CEREBROSPINAL FLUIDOrdering Facility: [facility] Address: [address] [place] [address] Performed By: #### L [id number], UHD9461, 94672-1 ####[facility]ORATORYCLIA [id number] [address] CSF TUBE NUMBER Ster[employer] Container Normal [facility] Comment on above: Order Comment: Speci men Type: CEREBROSPINAL FLUIDOrdering Facility: [facility] Address: [address] [place] [address] Performed By: #### L [id number], MOO7175, 64959-8 ####[facility]ORATORYCLIA [id number] [address] OF [facility] RBC Manual cnt (CSF) [#/Vol] 9 cells/uL High 0-5 [facility] Comment on above: Order Comment: Speci men Type: CEREBROSPINAL FLUIDOrdering Facility: [facility] Address: [address] [place] [address] Performed By: #### L [id number], PVK3805, 04672-0 ####[facility]ATORYCLIA [id number] [address] WBC Manual cnt (CSF) [#/Vol] 8 cells/uL High 0-5 [facility] Comment on above: Order Comment: Speci men Type: CEREBROSPINAL FLUIDOrdering Facility: [facility] Address: [facility] [address] Performed By: #### L [id number], IQE9801, 12539-6 ####[facility]ATORYCLIA [id number] [address] [place] Glucose CSF-mCncon Glucose (CSF) [Mass/Vol] 65 mg/dL Normal 40-70 [facility] Comment on above: Order Comment: Speci men Type: CEREBROSPINAL FLUIDOrdering Facility: [facility] Address: [address] [place] [address] Result Comment: Lumb ar CSF glucose values of healthy patients are approximately 60% of the plasma values and must always be compared with a concurrently measured plasma value for adequate clinical interpretation.References: 1. Glucose HK (GLUC3) [package insert V 12.0 Citizen Of [place]]. [employer], [place], [place]. September 2015. 2. Michelle Moore, Loki H. (2015). Chapter 7: Glucose and Lactate. Marianela Rothman.(eds.), Cerebrospinal Fluid in Clinical Neurology. [place]: [employer]. Performed By: #### 2 342-4, 2880-3 ####[facility]ORATORYCLIA [id number] [address] Magnesium [facility] 07-30 Magnesium [Mass/Vol] 2.5 mg/dL High 1.7-2.3 [facility] Comment on above: Order Comment: Speci men Type: BLOOD SPECIMENOrdering Facility: [facility] Address: [address] [place] [address] Performed By: #### 2 777-1, 22650-5, 42503-0 ####[facility]ORATORYCLIA [id number] [address] OF [facility] NURSING PROGon 07-30-2021 NURSING PROG Normal [facility] Phosphate SerPl-ncon 07-30 Phosphate [Mass/Vol] 2.4 mg/dL Low 2.7-4.8 [facility] Comment on above: Order Comment: Speci men Type: BLOOD SPECIMENOrdering Facility: [facility] Address: [address] [place], [place] [address] Performed By: #### 2 777-1, 37490-5, 36704-6 ####[facility]ORATORYCLIA [id number] [place] [address] [place] Prot CSF-mCncon 07-30-2021 Protein (CSF) [Mass/Vol] 50 mg/dL High 15-45 [facility] Comment on above: Order Comment: Speci men Type: CEREBROSPINAL FLUIDOrdering Facility: [facility] Address: [address] [place] [address] Performed By: #### 2 342-4, 2880-3 ####[facility]ORATORYCLIA [id number] [address] [place] aPTT PPPon 07-30-2021 aPTT Coag (PPP) [Time] 64.1 s High 23.0-32.[address] [facility] Comment on above: Order Comment: Speci men Type: BLOOD SPECIMENOrdering Facility: [facility] Address: [address] [place] [address] Performed By: #### 1 4979-9 ####[facility] [id number] [address] OF [facility] Bacteria CSF Culton 07-30-19 22 Bacteria identified Cx Nom (CSF) CULTURE, CSF: No growth 14 days GRAM STAIN: No cells or organisms seen Gram stain performed on cytospun specimen. Gram stain confirmed by microbiology Normal [facility] Comment on above: Performed By: #### 6 06-4 ####[facility]ORATORYCLIA [id number] [address] [place] CASE MANAGEMon 07-29-2021 CASE MANAGEM Normal [facility] CBC W Auto Differential pane l (Bld)on 07-29-2021 Basophils (Bld) [#/Vol] 0.03 10*3/uL Normal <0.11 [facility] Comment on above: Order Comment: Speci men Type: BLOOD SPECIMENOrdering Facility: [facility] Address: [address] [place] [address] Performed By: #### 5 7021-8 ####[facility]ATORYCLIA [id number] [address] [place] Basophils/100 WBC (Bld) 0.3 % Normal [facility] Comment on above: Order Comment: Speci men Type: BLOOD SPECIMENOrdering Facility: [facility] Address: [address] [place] [address] Performed By: #### 5 7021-8 ####[facility]ORATORYCLIA [id number] [address] Differential cell count method Nom (Bld) Auto Normal [facility] Comment on above: Order Comment: Speci men Type: BLOOD SPECIMENOrdering Facility: [facility] Address: [address] [place] [address] Performed By: #### 5 7021-8 ####[facility]ATORYCLIA [id number] [address] [place] Eosinophils (Bld) [#/Vol] 0.40 10*3/uL Normal <0.46 [facility] Comment on above: Order Comment: Speci men Type: BLOOD SPECIMENOrdering Facility: [facility] Address: [address] [place] [address] Performed By: #### 5 7021-8 ####[facility]ORATORYCLIA [id number] [address] Eosinophils/100 WBC (Bld) 3.9 % Normal [facility] Comment on above: Order Comment: Speci men Type: BLOOD SPECIMENOrdering Facility: [facility] Address: [address] [place] [address] Performed By: #### 5 7021-8 ####[facility]ORATORYCLIA [id number] [address] [place] Erythrocyte distribution width (RBC) [Ratio] 17.1 % High 11.5-15.0 [facility] Comment on above: Order Comment: Speci men Type: BLOOD SPECIMENOrdering Facility: [facility] Address: [address] [place] [address] Performed By: #### 5 7021-8 ####[facility]ORATORYCLIA [id number] [address] Hematocrit (Bld) [Volume fraction] 32.0 % Low 39.0-51.0 [facility] Comment on above: Order Comment: Speci men Type: BLOOD SPECIMENOrdering Facility: [facility] Address: [address] [place] [address] Performed By: #### 5 7021-8 ####[facility]ORATORYCLIA [id number] [address] Hemoglobin (Bld) [Mass/Vol] 9.7 g/dL Low 13.0-17.0 [facility] Comment on above: Order Comment: Speci men Type: BLOOD SPECIMENOrdering Facility: [facility] Address: [address] [place] [address] Performed By: #### 5 7021-8 ####[facility]ORATORYCLIA [id number] [address] IMMATURE GRAN % 0.6 % Normal [facility] Comment on above: Order Comment: Speci men Type: BLOOD SPECIMENOrdering Facility: [facility] Address: [address] [place] [address] Performed By: #### 5 7021-8 ####[facility]ORATORYCLIA [id number] [address] IMMATURE GRAN ABS 0.06 k/uL Normal <0.10 [facility] Comment on above: Order Comment: Speci men Type: BLOOD SPECIMENOrdering Facility: [facility] Address: [address] [place] [address] Performed By: #### 5 7021-8 ####[facility]ORATORYCLIA [id number] [address] Lymphocytes (Bld) [#/Vol] 1.96 10*3/uL Normal 1.00-4.00 [facility] Comment on above: Order Comment: Speci men Type: BLOOD SPECIMENOrdering Facility: [facility] Address: [address] [place], [place] [address] Performed By: #### 5 7021-8 ####[facility]ORATORYCLIA [id number] [address] Lymphocytes/100 WBC (Bld) 19.0 % Normal [facility] Comment on above: Order Comment: Speci men Type: BLOOD SPECIMENOrdering Facility: [facility] Address: [address] [place] [address] Performed By: #### 5 7021-8 ####[facility]ORATORYCLIA [id number] [address] MCH (RBC) [Entitic mass] 28.0 pg Normal 26.0-34.0 [facility] Comment on above: Order Comment: Speci men Type: BLOOD SPECIMENOrdering Facility: [facility] Address: [address] [place] [address] Performed By: #### 5 7021-8 ####[facility]ATORYCLIA [id number] [address] MCHC (RBC) [Mass/Vol] 30.3 g/dL Low 30.5-36.0 [facility] Comment on above: Order Comment: Speci men Type: BLOOD SPECIMENOrdering Facility: [facility] Address: [address] [place] [address] Performed By: #### 5 7021-8 ####[facility]ORATORYCLIA [id number] [address] MCV (RBC) [Entitic vol] 92.5 fL Normal 80.0-100.0 [facility] Comment on above: Order Comment: Speci men Type: BLOOD SPECIMENOrdering Facility: [facility] Address: [address] [place] [address] Performed By: #### 5 7021-8 ####[facility]ORATORYCLIA [id number] [address] Monocytes (Bld) [#/Vol] 0.53 10*3/uL Normal <0.87 [facility] Comment on above: Order Comment: Speci men Type: BLOOD SPECIMENOrdering Facility: [facility] Address: [address] [place] [address] Performed By: #### 5 7021-8 ####[facility]ORATORYCLIA [id number] [address] [place] Monocytes/100 WBC (Bld) 5.2 % Normal [facility] Comment on above: Order Comment: Speci men Type: BLOOD SPECIMENOrdering Facility: [facility] Address: [address] [place] [address] Performed By: #### 5 7021-8 ####[facility]ATORYCLIA [id number] [address] [place] Neutrophils (Bld) [#/Vol] 7.31 10*3/uL Normal 1.45-7.50 [facility] Comment on above: Order Comment: Speci men Type: BLOOD SPECIMENOrdering Facility: [facility] Address: [address] [place] [address] Performed By: #### 5 7021-8 ####[facility]ATORYCLIA [id number] [address] Neutrophils/100 WBC (Bld) 71.0 % Normal [facility] Comment on above: Order Comment: Speci men Type: BLOOD SPECIMENOrdering Facility: [facility] Address: [address] [place] [address] Performed By: #### 5 7021-8 ####[facility]ATORYCLIA [id number] [address] [place] Nucleated RBC (Bld) [#/Vol] 10*3/uL Normal <0.01 [facility] Comment on above: Order Comment: Speci men Type: BLOOD SPECIMENOrdering Facility: [facility] Address: [address] [place] [address] Performed By: #### 5 7021-8 ####[facility]ATORYCLIA [id number] [address] OF [facility] Nucleated RBC/100 WBC (Bld) [Ratio] 0.0 /100 WBC Normal [facility] Comment on above: Order Comment: Speci men Type: BLOOD SPECIMENOrdering Facility: [facility] Address: [address] [place] [address] Performed By: #### 5 7021-8 ####[facility]ORATORYCLIA [id number] [address] [place] Platelet mean volume (Bld) [Entitic vol] 11.2 fL Normal 9.0-12.7 [facility] Comment on above: Order Comment: Speci men Type: BLOOD SPECIMENOrdering Facility: [facility] Address: [address] [place] [address] Performed By: #### 5 7021-8 ####[facility]ATORYCLIA [id number] [address] [place] Platelets (Bld) [#/Vol] 276 10*3/uL Normal 150-400 [facility] Comment on above: Order Comment: Speci men Type: BLOOD SPECIMENOrdering Facility: [facility] Address: [address] [place] [address] Performed By: #### 5 7021-8 ####[facility]ATORYCLIA [id number] [address] [place] RBC (Bld) [#/Vol] 3.46 10*6/uL Low 4.20-6.00 [facility] Comment on above: Order Comment: Speci men Type: BLOOD SPECIMENOrdering Facility: [facility] Address: [address] [place] [address] Performed By: #### 5 7021-8 ####[facility]ATORYCLIA [id number] [address] [place] WBC (Bld) [#/Vol] 10.29 10*3/uL Normal 3.70-11.00 [facility] Comment on above: Order Comment: Speci men Type: BLOOD SPECIMENOrdering Facility: [facility] Address: [address] [place] [address] Performed By: #### 5 7021-8 ####[facility]ORATORYCLIA [id number] [address] OF [facility] NURSING PROGon 07-29-2021 NURSING PROG Normal [facility] THERAPY NTon 07-29-2021 THERAPY NT Normal [facility] aPTT PPPon 07-29-2021 aPTT Coag (PPP) [Time] 59.2 s High 23.0-32.[address] [facility] Comment on above: Order Comment: Speci men Type: BLOOD SPECIMENOrdering Facility: [facility] Address: [facility] [place] [address] Performed By: #### 1 4979-9 ####[facility]ATORYCLIA [id number] [address] [place] ALLIED HEALTHon 07-28-2021 ALLIED HEALTH Normal [facility] Basic metabolic 2000 panelon 07-28-2021 Anion gap [Moles/Vol] 7 mmol/L Low 9-18 [facility] Comment on above: Order Comment: Speci men Type: BLOOD SPECIMENOrdering Facility: [facility] Address: [facility] [place] [address] Performed By: #### 1 4338-8, 37607-0, 2777-1, 38737-9 ####[facility]ORATORYCLIA [id number] [place] [address] [place] Calcium [Mass/Vol] 9.0 mg/dL Normal 8.5-10.2 [facility] Comment on above: Order Comment: Speci men Type: BLOOD SPECIMENOrdering Facility: [facility] Address: [facility] [place] [address] Performed By: #### 1 4338-8, 47957-8, 2777-1, 95893-6 ####[facility]ATORYCLIA [id number] [place] [address] [place] Chloride [Moles/Vol] 94 mmol/L Low 97-105 [facility] Comment on above: Order Comment: Speci men Type: BLOOD SPECIMENOrdering Facility: [facility] Address: [address] [place] [address] Performed By: #### 1 4338-8, 24737-3, 27711-04, 68912-8 ####[facility]ATORYCLIA [id number] [place] [address] [place] CO2 [Moles/Vol] 31 mmol/L High 22-30 [facility] Comment on above: Order Comment: Speci men Type: BLOOD SPECIMENOrdering Facility: [facility] Address: [address] [place] [address] Performed By: #### 1 4338-8, , 2776-05, 67125-0 ####[facility]ATORYCLIA [id number] [address] STATES OF [facility] Creatinine [Mass/Vol] 0.75 mg/dL Normal 0.73-1.22 [facility] Comment on above: Order Comment: Speci men Type: BLOOD SPECIMENOrdering Facility: [facility] Address: [address] [place] [address] Performed By: #### 1 4338-8, , 2776-05, 04224-8 ####[facility]ATORYCLIA [id number] [address] STATES OF [facility] ESTIMATED GLOMERULAR FILTRATION RATE 98 mL/min/1.73m??? Normal >=60 [facility] Comment on above: Order Comment: Speci men Type: BLOOD SPECIMENOrdering Facility: [facility] Address: [address] [place] [address] Result Comment: Luzmaria mated Glomerular Filtration Rate [...] actual GFR. Performed By: #### 1 4338-8, 36440-3, 2777-1, 83517-2 ####[facility]ATORYCLIA [id number] [place] [address] [place] Glucose [Mass/Vol] 122 mg/dL High 74-99 [facility] Comment on above: Order Comment: Speci francia Type: BLOOD SPECIMENOrdering Facility: [facility] Address: [address] [place], [place] [phone] Result Comment: The [place] [employer] (ADA) provides guidance for cutoff [...] Standards of Medical Care in Diabetes 2016, [place] [employer]. Diabetes Care. 2016.39(Suppl 1). Performed By: #### 1 4338-8, 36328-8, 2777-1, 62323-7 ####[facility]ATORYCLIA [id number] [place] [address] [place] Potassium [Moles/Vol] 4.0 mmol/L Normal 3.7-5.1 [facility] Comment on above: Order Comment: Speci men Type: BLOOD SPECIMENOrdering Facility: [facility] Address: [address] [id number] Performed By: #### 1 4338-8, 55918-0, 2777-1, 53078-1 ####[facility]ATORYCLIA [id number] [place] [address] [place] Sodium [Moles/Vol] 132 mmol/L Low 136-144 [facility] Comment on above: Order Comment: Speci men Type: BLOOD SPECIMENOrdering Facility: [facility] Address: [address] [id number] Performed By: #### 1 4338-8, 53351-1, 2777-1, 34906-3 ####[facility]ATORYCLIA [id number] [place] [address] [place] Urea nitrogen [Mass/Vol] 34 mg/dL High 01-28 [facility] Comment on above: Order Comment: Speci men Type: BLOOD SPECIMENOrdering Facility: [facility] Address: [address] [place] [address] Performed By: #### 1 4338-8, 46764-6, 2777-1, 07408-6 ####[facility]ATORYCLIA [id number] [address] STATES [facility] CBC W Auto Differential pane l (Bld)on 07-28-2021 Basophils (Bld) [#/Vol] 0.04 10*3/uL Normal <0.11 [facility] Comment on above: Order Comment: Speci men Type: BLOOD SPECIMENOrdering Facility: [facility] Address: [address] [place] [address] Performed By: #### 5 7021-8 ####[facility] LABORATORYCLIA [id number] [address] [place] Basophils/100 WBC (Bld) 0.5 % Normal [facility] Comment on above: Order Comment: Speci men Type: BLOOD SPECIMENOrdering Facility: [facility] Address: [address] [place] [address] Performed By: #### 5 7021-8 ####[facility] LABORATORYCLIA [id number] [address] [place] [facility] Differential cell count method Nom (Bld) Auto Normal [facility] Comment on above: Order Comment: Speci men Type: BLOOD SPECIMENOrdering Facility: [facility] Address: [address] [place] [address] Performed By: #### 5 7021-8 ####[facility] LABORATORYCLIA [id number] [address] [place] Eosinophils (Bld) [#/Vol] 0.30 10*3/uL Normal <0.46 [facility] Comment on above: Order Comment: Speci men Type: BLOOD SPECIMENOrdering Facility: [facility] Address: [address] [place] [address] Performed By: #### 5 7021-8 ####[facility] LABORATORYCLIA [id number] [address] [place] Eosinophils/100 WBC (Bld) 3.4 % Normal [facility] Comment on above: Order Comment: Speci men Type: BLOOD SPECIMENOrdering Facility: [facility] Address: [address] [place] [address] Performed By: #### 5 7021-8 ####[facility]ORATORYCLIA [id number] [address] [place] Erythrocyte distribution width (RBC) [Ratio] 16.9 % High 11.5-15.0 [facility] Comment on above: Order Comment: Speci men Type: BLOOD SPECIMENOrdering Facility: [facility] Address: [address] [place] [address] Performed By: #### 5 7021-8 ####[facility] LABORATORYCLIA [id number] [address] [place] Hematocrit (Bld) [Volume fraction] 30.3 % Low 39.0-51.0 [facility] Comment on above: Order Comment: Speci men Type: BLOOD SPECIMENOrdering Facility: [facility] Address: [address] [place] [address] Performed By: #### 5 7021-8 ####[facility] LABORATORYCLIA [id number] [address] [place] Hemoglobin (Bld) [Mass/Vol] 9.2 g/dL Low 13.0-17.0 [facility] Comment on above: Order Comment: Speci men Type: BLOOD SPECIMENOrdering Facility: [facility] Address: [address] [place] [address] Performed By: #### 5 7021-8 ####[facility]ORATORYCLIA [id number] [address] IMMATURE GRAN % 0.6 % Normal [facility] Comment on above: Order Comment: Speci men Type: BLOOD SPECIMENOrdering Facility: [facility] Address: [address] [place] [address] Performed By: #### 5 7021-8 ####[facility] LABORATORYCLIA [id number] [address] IMMATURE GRAN ABS 0.05 k/uL Normal <0.10 [facility] Comment on above: Order Comment: Speci men Type: BLOOD SPECIMENOrdering Facility: [facility] Address: [address] [place] [address] Performed By: #### 5 7021-8 ####[facility]ORATORYCLIA [id number] [address] Lymphocytes (Bld) [#/Vol] 1.68 10*3/uL Normal 1.00-4.00 [facility] Comment on above: Order Comment: Speci men Type: BLOOD SPECIMENOrdering Facility: [facility] Address: [address] [place] [address] Performed By: #### 5 7021-8 ####[facility]ORATORYCLIA [id number] [address] Lymphocytes/100 WBC (Bld) 19.2 % Normal [facility] Comment on above: Order Comment: Speci men Type: BLOOD SPECIMENOrdering Facility: [facility] Address: [address] [place] [address] Performed By: #### 5 7021-8 ####[facility] LABORATORYCLIA [id number] [address] MCH (RBC) [Entitic mass] 28.4 pg Normal 26.0-34.0 [facility] Comment on above: Order Comment: Speci men Type: BLOOD SPECIMENOrdering Facility: [facility] Address: [address] [place] [address] Performed By: #### 5 7021-8 ####[facility]ORATORYCLIA [id number] [address] STATES OF [facility] MCHC (RBC) [Mass/Vol] 30.4 g/dL Low 30.5-36.0 [facility] Comment on above: Order Comment: Speci men Type: BLOOD SPECIMENOrdering Facility: [facility] Address: [address] [place] [address] Performed By: #### 5 7021-8 ####[facility]ORATORYCLIA [id number] [address] STATES OF [facility] MCV (RBC) [Entitic vol] 93.5 fL Normal 80.0-100.0 [facility] Comment on above: Order Comment: Speci men Type: BLOOD SPECIMENOrdering Facility: [facility] Address: [address] [place] [address] Performed By: #### 5 7021-8 ####[facility]ORATORYCLIA [id number] [address] [place] Monocytes (Bld) [#/Vol] 0.58 10*3/uL Normal <0.87 [facility] Comment on above: Order Comment: Speci men Type: BLOOD SPECIMENOrdering Facility: [facility] Address: [address] [place] [address] Performed By: #### 5 7021-8 ####[facility] LABORATORYCLIA [id number] [address] Monocytes/100 WBC (Bld) 6.6 % Normal [facility] Comment on above: Order Comment: Speci men Type: BLOOD SPECIMENOrdering Facility: [facility] Address: [address] [place] [address] Performed By: #### 5 7021-8 ####[facility]ORATORYCLIA [id number] [address] [place] Neutrophils (Bld) [#/Vol] 6.11 10*3/uL Normal 1.45-7.50 [facility] Comment on above: Order Comment: Speci men Type: BLOOD SPECIMENOrdering Facility: [facility] Address: [address] [place] [address] Performed By: #### 5 7021-8 ####[facility]ORATORYCLIA [id number] [address] Neutrophils/100 WBC (Bld) 69.7 % Normal [facility] Comment on above: Order Comment: Speci men Type: BLOOD SPECIMENOrdering Facility: [facility] Address: [address] [place] [address] Performed By: #### 5 7021-8 ####[facility]ORATORYCLIA [id number] [address] [place] Nucleated RBC (Bld) [#/Vol] 10*3/uL Normal <0.01 [facility] Comment on above: Order Comment: Speci men Type: BLOOD SPECIMENOrdering Facility: [facility] Address: [address] [place] [address] Performed By: #### 5 7021-8 ####[facility]ORATORYCLIA [id number] [address] [place] [facility] Nucleated RBC/100 WBC (Bld) [Ratio] 0.0 /100 WBC Normal [facility] Comment on above: Order Comment: Speci men Type: BLOOD SPECIMENOrdering Facility: [facility] Address: [address] [place] [address] Performed By: #### 5 7021-8 ####[facility]ORATORYCLIA [id number] [address] [place] Platelet mean volume (Bld) [Entitic vol] 11.3 fL Normal 9.0-12.7 [facility] Comment on above: Order Comment: Speci men Type: BLOOD SPECIMENOrdering Facility: [facility] Address: [address] [place] [address] Performed By: #### 5 7021-8 ####[facility]ORATORYCLIA [id number] [address] [place] Platelets (Bld) [#/Vol] 238 10*3/uL Normal 150-400 [facility] Comment on above: Order Comment: Speci men Type: BLOOD SPECIMENOrdering Facility: [facility] Address: [address] [place] [address] Performed By: #### 5 7021-8 ####[facility]ORATORYCLIA [id number] [place] [address] [place] RBC (Bld) [#/Vol] 3.24 10*6/uL Low 4.20-6.00 [facility] Comment on above: Order Comment: Speci men Type: BLOOD SPECIMENOrdering Facility: [facility] Address: [address] [place] [address] Performed By: #### 5 7021-8 ####[facility] LABORATORYCLIA [id number] [address] STATES OF [facility] WBC (Bld) [#/Vol] 8.76 10*3/uL Normal 3.70-11.00 [facility] Comment on above: Order Comment: Speci men Type: BLOOD SPECIMENOrdering Facility: [facility] Address: [address] [place] [address] Performed By: #### 5 7021-8 ####[facility]ORATORYCLIA [id number] [address] [place] MRI BRAIN WO/W IVCONon 07-28 MRI BRAIN WO/W IVCON Normal [facility] Magnesium SerPl-mCncon 07-28 Magnesium [Mass/Vol] 2.5 mg/dL High 1.7-2.3 [facility] Comment on above: Order Comment: Speci men Type: BLOOD SPECIMENOrdering Facility: [facility] Address: [address] [place] [address] Performed By: #### 1 4338-8, 43452-7, 2777-1, 57451-1 ####[facility]ORATORYCLIA [id number] [address] [place] NURSING PROGon 07-28-2021 NURSING PROG Normal [facility] NURSING PROG Normal [facility] Phosphate SerPl-mCncon 07-28 Phosphate [Mass/Vol] 2.8 mg/dL Normal 2.7-4.8 [facility] Comment on above: Order Comment: Speci men Type: BLOOD SPECIMENOrdering Facility: [facility] Address: [address] [place] [address] Performed By: #### 1 4338-8, 19394-4, 2777-1, 35429-3 ####[facility]ORATORYCLIA [id number] [address] Prealbumin [Mass/Vol]on 07-06 Prealbumin Nephelometry [Mass/Vol] 25 mg/dL Normal 17-36 [facility] Comment on above: Order Comment: Speci men Type: BLOOD SPECIMENOrdering Facility: [facility] Address: [address] [place] [address] Performed By: #### 1 4338-8, 85251-0, 2777-1, 53908-0 ####[facility]ORATORYCLIA [id number] [address] [place] aPTT PPPon 07-28-2021 aPTT Coag (PPP) [Time] 53.0 s High 23.0-32.[address] [facility] Comment on above: Order Comment: Speci men Type: BLOOD SPECIMENOrdering Facility: [facility] Address: [address] [place] [address] Performed By: #### 1 4979-9 ####[facility]ORATORYCLIA [id number] [address] STATES OF [facility] aPTT Coag (PPP) [Time] 57.2 s High 23.0-32.[address] [facility] Comment on above: Order Comment: Speci men Type: BLOOD SPECIMENOrdering Facility: [facility] Address: [address] [place] [address] Performed By: #### 1 4979-9 ####[facility] LABORATORYCLIA [id number] [address] Bacteria CSF Culton 07-28-19 Bacteria identified Cx Nom (CSF) CULTURE, CSF: No growth 14 days GRAM STAIN: No organisms seen Rare Polymorphonuclear leukocytes Rare Red Blood Cells Gram stain performed on cytospun specimen. Normal [facility] Comment on above: Performed By: #### 6 06-4 ####[facility]ORATORYCLIA [id number] [address] Bacteria Spec Resp Culton Bacteria identified Respiratory culture Nom (Unsp spec) CULTURE, RESPIRATORY: Rare Normal respiratory chris present GRAM STAIN: No organisms seen Rare Polymorphonuclear leukocytes Rare Epithelial cells Normal [facility] Comment on above: Performed By: #### 3 2355-0 ####[facility]ORATORYCLIA [id number] [address] OF [facility] CASE MANAGEMon 07-27-2021 CASE MANAGEM Normal [facility] CBC W Auto Differential pane l (Bld)on 07-27-2021 Basophils (Bld) [#/Vol] 0.04 10*3/uL Normal <0.11 [facility] Comment on above: Order Comment: Speci men Type: BLOOD SPECIMENOrdering Facility: [facility] Address: [address] [address] Performed By: #### 5 7021-8 ####[facility]ORATORYCLIA [id number] [address] [place] [facility] Basophils/100 WBC (Bld) 0.4 % Normal [facility] Comment on above: Order Comment: Speci men Type: BLOOD SPECIMENOrdering Facility: [facility] Address: [address] [address] Performed By: #### 5 7021-8 ####[facility]ORATORYCLIA [id number] [address] Differential cell count method Nom (Bld) Auto Normal [facility] Comment on above: Order Comment: Speci men Type: BLOOD SPECIMENOrdering Facility: [facility] Address: [address] [place] [address] Performed By: #### 5 7021-8 ####[facility]ATORYCLIA [id number] [address] [place] Eosinophils (Bld) [#/Vol] 0.50 10*3/uL High <0.46 [facility] Comment on above: Order Comment: Speci men Type: BLOOD SPECIMENOrdering Facility: [facility] Address: [address] [place] [address] Performed By: #### 5 7021-8 ####[facility]ORATORYCLIA [id number] [address] [place] Eosinophils/100 WBC (Bld) 5.2 % Normal [facility] Comment on above: Order Comment: Speci men Type: BLOOD SPECIMENOrdering Facility: [facility] Address: [address] [place] [address] Performed By: #### 5 7021-8 ####[facility]ATORYCLIA [id number] [address] [place] Erythrocyte distribution width (RBC) [Ratio] 16.8 % High 11.5-15.0 [facility] Comment on above: Order Comment: Speci men Type: BLOOD SPECIMENOrdering Facility: [facility] Address: [address] [place] [address] Performed By: #### 5 7021-8 ####[facility]ORATORYCLIA [id number] [address] [place] Hematocrit (Bld) [Volume fraction] 29.8 % Low 39.0-51.0 [facility] Comment on above: Order Comment: Speci men Type: BLOOD SPECIMENOrdering Facility: [facility] Address: [address] [place] [address] Performed By: #### 5 7021-8 ####[facility]ORATORYCLIA [id number] [address] [place] Hemoglobin (Bld) [Mass/Vol] 9.0 g/dL Low 13.0-17.0 [facility] Comment on above: Order Comment: Speci men Type: BLOOD SPECIMENOrdering Facility: [facility] Address: [address] [place] [address] Performed By: #### 5 7021-8 ####[facility]ORATORYCLIA [id number] [address] OF [facility] IMMATURE GRAN % 0.6 % Normal [facility] Comment on above: Order Comment: Speci men Type: BLOOD SPECIMENOrdering Facility: [facility] Address: [address] [place] [address] Performed By: #### 5 7021-8 ####[facility]ORATORYCLIA [id number] [address] IMMATURE GRAN ABS 0.06 k/uL Normal <0.10 [facility] Comment on above: Order Comment: Speci men Type: BLOOD SPECIMENOrdering Facility: [facility] Address: [address] [place] [address] Performed By: #### 5 7021-8 ####[facility]ORATORYCLIA [id number] [address] [place] Lymphocytes (Bld) [#/Vol] 1.73 10*3/uL Normal 1.00-4.00 [facility] Comment on above: Order Comment: Speci men Type: BLOOD SPECIMENOrdering Facility: [facility] Address: [address] [place] [address] Performed By: #### 5 7021-8 ####[facility]ORATORYCLIA [id number] [address] Lymphocytes/100 WBC (Bld) 17.9 % Normal [facility] Comment on above: Order Comment: Speci men Type: BLOOD SPECIMENOrdering Facility: [facility] Address: [address] [place] [address] Performed By: #### 5 7021-8 ####[facility]ORATORYCLIA [id number] [address] [place] [facility] MCH (RBC) [Entitic mass] 28.1 pg Normal 26.0-34.0 [facility] Comment on above: Order Comment: Speci men Type: BLOOD SPECIMENOrdering Facility: [facility] Address: [address] [place] [address] Performed By: #### 5 7021-8 ####[facility]ORATORYCLIA [id number] [address] STATES OF [facility] MCHC (RBC) [Mass/Vol] 30.2 g/dL Low 30.5-36.0 [facility] Comment on above: Order Comment: Speci men Type: BLOOD SPECIMENOrdering Facility: [facility] Address: [address] [place] [address] Performed By: #### 5 7021-8 ####[facility]ATORYCLIA [id number] [address] MCV (RBC) [Entitic vol] 93.1 fL Normal 80.0-100.0 [facility] Comment on above: Order Comment: Speci men Type: BLOOD SPECIMENOrdering Facility: [facility] Address: [address] [place] [address] Performed By: #### 5 7021-8 ####[facility]ATORYCLIA [id number] [address] Monocytes (Bld) [#/Vol] 0.59 10*3/uL Normal <0.87 [facility] Comment on above: Order Comment: Speci men Type: BLOOD SPECIMENOrdering Facility: [facility] Address: [address] [place] [address] Performed By: #### 5 7021-8 ####[facility]ATORYCLIA [id number] [address] Monocytes/100 WBC (Bld) 6.1 % Normal [facility] Comment on above: Order Comment: Speci men Type: BLOOD SPECIMENOrdering Facility: [facility] Address: [address] [place] [address] Performed By: #### 5 7021-8 ####[facility] LABORATORYCLIA [id number] [address] [place] Neutrophils (Bld) [#/Vol] 6.75 10*3/uL Normal 1.45-7.50 [facility] Comment on above: Order Comment: Speci men Type: BLOOD SPECIMENOrdering Facility: [facility] Address: [address] [place] [address] Performed By: #### 5 7021-8 ####[facility]ATORYCLIA [id number] [address] [place] Neutrophils/100 WBC (Bld) 69.8 % Normal [facility] Comment on above: Order Comment: Speci men Type: BLOOD SPECIMENOrdering Facility: [facility] Address: [address] [place] [address] Performed By: #### 5 7021-8 ####[facility]ATORYCLIA [id number] [address] [place] Nucleated RBC (Bld) [#/Vol] 10*3/uL Normal <0.01 [facility] Comment on above: Order Comment: Speci men Type: BLOOD SPECIMENOrdering Facility: [facility] Address: [address] [place] [address] Performed By: #### 5 7021-8 ####[facility]ATORYCLIA [id number] [address] [place] Nucleated RBC/100 WBC (Bld) [Ratio] 0.0 /100 WBC Normal [facility] Comment on above: Order Comment: Speci men Type: BLOOD SPECIMENOrdering Facility: [facility] Address: [address] [place] [address] Performed By: #### 5 7021-8 ####[facility]ATORYCLIA [id number] [address] [place] Platelet mean volume (Bld) [Entitic vol] 11.3 fL Normal 9.0-12.7 [facility] Comment on above: Order Comment: Speci men Type: BLOOD SPECIMENOrdering Facility: [facility] Address: [address] [place] [address] Performed By: #### 5 7021-8 ####[facility]ATORYCLIA [id number] [place] [address] [place] Platelets (Bld) [#/Vol] 227 10*3/uL Normal 150-400 [facility] Comment on above: Order Comment: Speci men Type: BLOOD SPECIMENOrdering Facility: [facility] Address: [address] [place] [address] Performed By: #### 5 7021-8 ####[facility]ORATORYCLIA [id number] [place] [address] [place] RBC (Bld) [#/Vol] 3.20 10*6/uL Low 4.20-6.00 [facility] Comment on above: Order Comment: Speci men Type: BLOOD SPECIMENOrdering Facility: [facility] Address: [address] [place] [address] Performed By: #### 5 7021-8 ####[facility]ATORYCLIA [id number] [place] [address] [place] WBC (Bld) [#/Vol] 9.67 10*3/uL Normal 3.70-11.00 [facility] Comment on above: Order Comment: Speci men Type: BLOOD SPECIMENOrdering Facility: [facility] Address: [address] [place] [address] Performed By: #### 5 7021-8 ####[facility]ATORYCLIA [id number] [place] [address] [place] CONSULT PROGon 07-27-2021 CONSULT PROG Normal [facility] CSF MANUAL DIFFon 07-27-2021 DIF TTL, CSF 100 cells counted Normal [facility] Comment on above: Order Comment: Speci men Type: CEREBROSPINAL FLUIDOrdering Facility: [facility] Address: [address] [place] [address] Performed By: #### L [id number], 67758-0, [id number] ####[facility]ATORYCLIA [id number] [place] [address] [place] LYMPH%, CSF 75 % Normal 50-90 [facility] Comment on above: Order Comment: Speci men Type: CEREBROSPINAL FLUIDOrdering Facility: [facility] Address: [address] [place] [address] Performed By: #### L [id number], 69067-8, [id number] ####[facility]ORATORYCLIA [id number] [place] [address] [place] MONO%, CSF 22 % Normal 10-50 [facility] Comment on above: Order Comment: Speci men Type: CEREBROSPINAL FLUIDOrdering Facility: [facility] Address: [address] [place] [address] Performed By: #### L [id number], 77734-9, [id number] ####[facility]ATORYCLIA [id number] [place] [address] [place] NEUT%, CSF 2 % Normal 0-3 [facility] Comment on above: Order Comment: Speci men Type: CEREBROSPINAL FLUIDOrdering Facility: [facility] Address: [address] [place] [address] Performed By: #### L [id number], 59795-1, [id number] ####[facility]ATORYCLIA [id number] [address] [place] OTHER CL%, CSF 1 % Normal [facility] Comment on above: Order Comment: Speci men Type: CEREBROSPINAL FLUIDOrdering Facility: [facility] Address: [address] [place] [address] Result Comment: Path ologist review of microscopy results to follow Performed By: #### L [id number], 62584-2, [id number] ####[facility]ORATORYCLIA [id number] [address] [place] CSF PATHOLOGIST INTERP (LAB REFLEX ORDER-NO BILL)on 07-27-2021 CSF STAFF REVIEW Negative Normal [facility] Comment on above: Order Comment: Speci men Type: CEREBROSPINAL FLUIDOrdering Facility: [facility] Address: [address] [place] [address] Performed By: #### L [id number], [id number], [id number] ####[facility] GENERAL LABORATORYCLIA [id number] [address] Pathologist name Reviewed by Amador Stevens MD [facility] Comment on above: Order Comment: Speci men Type: CEREBROSPINAL FLUIDOrdering Facility: [facility] Address: [address] [place] [address] Performed By: #### L [id number], 58744-4, [id number] ####[facility] LABORATORYCLIA [id number] [address] Cell count panel (CSF)on Clarity (CSF) Clear Normal Clear [facility] Comment on above: Order Comment: Speci men Type: CEREBROSPINAL FLUIDOrdering Facility: [facility] Address: [address] [place] [address] Performed By: #### L [id number], 57215-4, [id number] ####[facility]ATORYCLIA [id number] [address] Clarity (Unsp spec) Not Indicated Normal Clear [facility] Comment on above: Order Comment: Speci men Type: CEREBROSPINAL FLUIDOrdering Facility: [facility] Address: [address] [place] [address] Performed By: #### L [id number], 46229-5, [id number] ####[facility]ATORYCLIA [id number] [address] Color (CSF) Colorless Normal Colorless [facility] Comment on above: Order Comment: Speci men Type: CEREBROSPINAL FLUIDOrdering Facility: [facility] Address: [address] [place] [address] Performed By: #### L [id number], 17399-7, [id number] ####[facility]ATORYCLIA [id number] [address] Color (Spun CSF) Not Indicated Normal Colorless [facility] Comment on above: Order Comment: Speci men Type: CEREBROSPINAL FLUIDOrdering Facility: [facility] Address: [address] [place] [address] Performed By: #### L [id number], 48755-1, [id number] ####[facility] LABORATORYCLIA [id number] [address] CSF TUBE NUMBER Sterile Container Normal [facility] Comment on above: Order Comment: Speci men Type: CEREBROSPINAL FLUIDOrdering Facility: [facility] Address: [address] [place] [address] Performed By: #### L [id number], 77211-2, [id number] ####[facility]ORATORYCLIA [id number] [address] RBC Manual cnt (CSF) [#/Vol] 39 cells/uL High 0-5 [facility] Comment on above: Order Comment: Speci men Type: CEREBROSPINAL FLUIDOrdering Facility: [facility] Address: [address] [place] [address] Performed By: #### L [id number], 15791-2, [id number] ####[facility]ORATORYCLIA [id number] [address] WBC Manual cnt (CSF) [#/Vol] 14 cells/uL High 0-5 [facility] Comment on above: Order Comment: Speci men Type: CEREBROSPINAL FLUIDOrdering Facility: [facility] Address: [address] [place], [place] [address] Performed By: #### L [id number], 33324-2, [id number] ####[facility] LABORATORYCLIA [id number] [address] [place] Glucose CSF-ncon 2 Glucose (CSF) [Mass/Vol] 64 mg/dL Normal 40-70 [facility] Comment on above: Order Comment: Speci men Type: CEREBROSPINAL FLUIDOrdering Facility: [facility] Address: [address] [place] [address] Result Comment: Lumb ar CSF glucose values of healthy patients are approximately 60% of the plasma values and must always be compared with a concurrently measured plasma value for adequate clinical interpretation.References: 1. Glucose HK (GLUC3) [package insert V 12.0 Citizen Of [place]]. [employer], [place], [place]. September 2015. 2. Michelle Moore, Michelle Manjarrez (2015). Chapter 7: Glucose and Lactate. F. Irina rose al.(eds.), Cerebrospinal Fluid in Clinical Neurology. [place]: [employer]. Performed By: #### 2 342-4, 2880-3 ####[facility] LABORATORYCLIA [id number] [place] [address] [place] NUTRITIONon 07-27-2021 NUTRITION Normal [facility] Prot CSF-mCncon 07-27-2021 Protein (CSF) [Mass/Vol] 58 mg/dL High 15-45 [facility] Comment on above: Order Comment: Speci men Type: CEREBROSPINAL FLUIDOrdering Facility: [facility] Address: [address] [place] [address] Performed By: #### 2 342-4, 2880-3 ####[facility]ORATORYCLIA [id number] [place] [address] [place] aPTT PPPon 07-27-2021 aPTT Coag (PPP) [Time] 68.4 s High 23.0-32.[address] [facility] Comment on above: Order Comment: Speci men Type: BLOOD SPECIMENOrdering Facility: [facility] Address: [address] [place] [address] Performed By: #### 1 4979-9 ####[facility]ORATORYCLIA [id number] [address] [place] aPTT Coag (PPP) [Time] 51.3 s High 23.0-32.[address] [facility] Comment on above: Order Comment: Speci men Type: BLOOD SPECIMENOrdering Facility: [facility] Address: [address] [place] [address] Performed By: #### 1 4979-9 ####[facility] LABORATORYCLIA [id number] [address] STATES OF [facility] ALLIED HEALTHon 07-26-2021 ALLIED HEALTH HNO ID: [id number] Author: Stephanie Maldonado, window dresser Service: Radiology Author Type: Excel Developer Type: Allied Health Filed: 07/26/2021 4:10 PM Note Text: Spoke with nurse. Pt getting new EVD today. Try tomorrow. Normal [facility] Bacteria CSF Culton 07-27-19 Bacteria identified Cx Nom (CSF) Abnormal [facility] Comment on above: Performed By: #### 6 06-4 ####[facility]ORATORYCLIA [id number] [place] [address] [place] Basic metabolic 2000 panelon 07-26-2021 Anion gap [Moles/Vol] 6 mmol/L Low 9-18 [facility] Comment on above: Order Comment: Speci men Type: BLOOD SPECIMENOrdering Facility: [facility] Address: [address] [place] [address] Performed By: #### 2 4321-2 ####[facility]ORATORYCLIA [id number] [place] [address] [place] Calcium [Mass/Vol] 9.2 mg/dL Normal 8.5-10.2 [facility] Comment on above: Order Comment: Speci men Type: BLOOD SPECIMENOrdering Facility: [facility] Address: [address] [place] [address] Performed By: #### 2 4321-2 ####[facility]ORATORYCLIA [id number] [place] [address] [place] Chloride [Moles/Vol] 99 mmol/L Normal 97-105 [facility] Comment on above: Order Comment: Speci men Type: BLOOD SPECIMENOrdering Facility: [facility] Address: [address] [place] [address] Performed By: #### 2 4321-2 ####[facility]ORATORYCLIA [id number] [address] [place] CO2 [Moles/Vol] 32 mmol/L High 22-30 [facility] Comment on above: Order Comment: Speci men Type: BLOOD SPECIMENOrdering Facility: [facility] Address: [address] [place] [address] Performed By: #### 2 4321-2 ####[facility]ORATORYCLIA [id number] [address] [place] Creatinine [Mass/Vol] 0.74 mg/dL Normal 0.73-1.22 [facility] Comment on above: Order Comment: Speci men Type: BLOOD SPECIMENOrdering Facility: [facility] Address: [address] [place] [address] Performed By: #### 2 4321-2 ####[facility] HOSPITALIA [id number] [address] ESTIMATED GLOMERULAR FILTRATION RATE 98 mL/min/1.73m??? Normal >=60 [facility] Comment on above: Order Comment: Speci men Type: BLOOD SPECIMENOrdering Facility: [facility] Address: [address] [place] [address] Result Comment: Luzmaria mated Glomerular Filtration Rate [...] actual GFR. Performed By: #### 2 4321-2 ####[facility]ORATORYCLIA [id number] [address] [place] Glucose [Mass/Vol] 126 mg/dL High 74-99 [facility] Comment on above: Order Comment: Speci men Type: BLOOD SPECIMENOrdering Facility: [facility] Address: [address] [address] Result Comment: The [place] [employer] (ADA) provides guidance for cutoff [...] Standards of Medical Care in Diabetes 2016, [place] [employer]. Diabetes Care. 2016.39(Suppl 1). Performed By: #### 2 4321-2 ####[facility]ORATORYCLIA [id number] [place] [address] [place] Potassium [Moles/Vol] 4.2 mmol/L Normal 3.7-5.1 [facility] Comment on above: Order Comment: Speci men Type: BLOOD SPECIMENOrdering Facility: [facility] Address: [address] [address] Performed By: #### 2 1-2 ####[facility]ORATORYCLIA [id number] [place] [address] [place] Sodium [Moles/Vol] 137 mmol/L Normal 136-144 [facility] Comment on above: Order Comment: Speci men Type: BLOOD SPECIMENOrdering Facility: [facility] Address: [address] [address] Performed By: #### 2 4321-2 ####[facility]ORATORYCLIA [id number] [place] [address] [place] Urea nitrogen [Mass/Vol] 36 mg/dL High 9-24 [facility] Comment on above: Order Comment: Speci men Type: BLOOD SPECIMENOrdering Facility: [facility] Address: [address] [address] Performed By: #### 2 4321-2 ####[facility]ORATORYCLIA [id number] [place] [address] [place] CBC W Auto Differential pane l (Bld)on 07-26-2021 Basophils (Bld) [#/Vol] 0.04 10*3/uL Normal <0.11 [facility] Comment on above: Order Comment: Speci men Type: BLOOD SPECIMENOrdering Facility: [facility] Address: [address] [place] [address] Performed By: #### 5 7021-8 ####[facility]ORATORYCLIA [id number] [address] Basophils/100 WBC (Bld) 0.4 % Normal [facility] Comment on above: Order Comment: Speci men Type: BLOOD SPECIMENOrdering Facility: [facility] Address: [address] [place] [address] Performed By: #### 5 7021-8 ####[facility]ORATORYCLIA [id number] [address] Differential cell count method Nom (Bld) Auto Normal [facility] Comment on above: Order Comment: Speci men Type: BLOOD SPECIMENOrdering Facility: [facility] Address: [address] [place] [address] Performed By: #### 5 7021-8 ####[facility]ORATORYCLIA [id number] [address] [place] Eosinophils (Bld) [#/Vol] 0.63 10*3/uL High <0.46 [facility] Comment on above: Order Comment: Speci men Type: BLOOD SPECIMENOrdering Facility: [facility] Address: [address] [place] [address] Performed By: #### 5 7021-8 ####[facility]ORATORYCLIA [id number] [address] Eosinophils/100 WBC (Bld) 5.8 % Normal [facility] Comment on above: Order Comment: Speci men Type: BLOOD SPECIMENOrdering Facility: [facility] Address: [facility] [place] [address] Performed By: #### 5 7021-8 ####[facility]ORATORYCLIA [id number] [address] Erythrocyte distribution width (RBC) [Ratio] 16.8 % High 11.5-15.0 [facility] Comment on above: Order Comment: Speci men Type: BLOOD SPECIMENOrdering Facility: [facility] Address: [address] [place] [address] Performed By: #### 5 7021-8 ####[facility]ORATORYCLIA [id number] [address] Hematocrit (Bld) [Volume fraction] 31.2 % Low 39.0-51.0 [facility] Comment on above: Order Comment: Speci men Type: BLOOD SPECIMENOrdering Facility: [facility] Address: [address] [place] [address] Performed By: #### 5 7021-8 ####[facility]ORATORYCLIA [id number] [address] [place] Hemoglobin (Bld) [Mass/Vol] 9.1 g/dL Low 13.0-17.0 [facility] Comment on above: Order Comment: Speci men Type: BLOOD SPECIMENOrdering Facility: [facility] Address: [address] [place] [address] Performed By: #### 5 7021-8 ####[facility]ORATORYCLIA [id number] [address] IMMATURE GRAN % 0.6 % Normal [facility] Comment on above: Order Comment: Speci men Type: BLOOD SPECIMENOrdering Facility: [facility] Address: [address] [place] [address] Performed By: #### 5 7021-8 ####[facility]ORATORYCLIA [id number] [address] IMMATURE GRAN ABS 0.07 k/uL Normal <0.10 [facility] Comment on above: Order Comment: Speci men Type: BLOOD SPECIMENOrdering Facility: [facility] Address: [address] [place] [address] Performed By: #### 5 7021-8 ####[facility]ORATORYCLIA [id number] [address] STATES OF [facility] Lymphocytes (Bld) [#/Vol] 2.16 10*3/uL Normal 1.00-4.00 [facility] Comment on above: Order Comment: Speci men Type: BLOOD SPECIMENOrdering Facility: [facility] Address: [address] [place] [address] Performed By: #### 5 7021-8 ####[facility]ATORYCLIA [id number] [address] Lymphocytes/100 WBC (Bld) 20.0 % Normal [facility] Comment on above: Order Comment: Speci men Type: BLOOD SPECIMENOrdering Facility: [facility] Address: [address] [place] [address] Performed By: #### 5 7021-8 ####[facility]ORATORYCLIA [id number] [address] [place] MCH (RBC) [Entitic mass] 27.7 pg Normal 26.0-34.0 [facility] Comment on above: Order Comment: Speci men Type: BLOOD SPECIMENOrdering Facility: [facility] Address: [address] [place] [address] Performed By: #### 5 7021-8 ####[facility]ATORYCLIA [id number] [address] [place] MCHC (RBC) [Mass/Vol] 29.2 g/dL Low 30.5-36.0 [facility] Comment on above: Order Comment: Speci men Type: BLOOD SPECIMENOrdering Facility: [facility] Address: [address] [place] [address] Performed By: #### 5 7021-8 ####[facility]ORATORYCLIA [id number] [place] [address] [place] MCV (RBC) [Entitic vol] 95.1 fL Normal 80.0-100.0 [facility] Comment on above: Order Comment: Speci men Type: BLOOD SPECIMENOrdering Facility: [facility] Address: [address] [place] [address] Performed By: #### 5 7021-8 ####[facility]ATORYCLIA [id number] [place] [address] [place] Monocytes (Bld) [#/Vol] 0.63 10*3/uL Normal <0.87 [facility] Comment on above: Order Comment: Speci men Type: BLOOD SPECIMENOrdering Facility: [facility] Address: [address] [place] [address] Performed By: #### 5 7021-8 ####[facility]ATORYCLIA [id number] [address] [place] Monocytes/100 WBC (Bld) 5.8 % Normal [facility] Comment on above: Order Comment: Speci men Type: BLOOD SPECIMENOrdering Facility: [facility] Address: [address] [place] [address] Performed By: #### 5 7021-8 ####[facility]ATORYCLIA [id number] [place] [address] [place] Neutrophils (Bld) [#/Vol] 7.25 10*3/uL Normal 1.45-7.50 [facility] Comment on above: Order Comment: Speci men Type: BLOOD SPECIMENOrdering Facility: [facility] Address: [address] [place] [address] Performed By: #### 5 7021-8 ####[facility]ATORYCLIA [id number] [address] [place] Neutrophils/100 WBC (Bld) 67.4 % Normal [facility] Comment on above: Order Comment: Speci men Type: BLOOD SPECIMENOrdering Facility: [facility] Address: [address] [place] [address] Performed By: #### 5 7021-8 ####[facility]ATORYCLIA [id number] [address] Nucleated RBC (Bld) [#/Vol] 10*3/uL Normal <0.01 [facility] Comment on above: Order Comment: Speci men Type: BLOOD SPECIMENOrdering Facility: [facility] Address: [address] [place] [address] Performed By: #### 5 7021-8 ####[facility]ORATORYCLIA [id number] [address] OF [facility] Nucleated RBC/100 WBC (Bld) [Ratio] 0.0 /100 WBC Normal [facility] Comment on above: Order Comment: Speci men Type: BLOOD SPECIMENOrdering Facility: [facility] Address: [address] [place] [address] Performed By: #### 5 7021-8 ####[facility]ATORYCLIA [id number] [address] OF [facility] Platelet mean volume (Bld) [Entitic vol] 11.2 fL Normal 9.0-12.7 [facility] Comment on above: Order Comment: Speci men Type: BLOOD SPECIMENOrdering Facility: [facility] Address: [address] [place] [address] Performed By: #### 5 7021-8 ####[facility]ATORYCLIA [id number] [address] [place] Platelets (Bld) [#/Vol] 245 10*3/uL Normal 150-400 [facility] Comment on above: Order Comment: Speci men Type: BLOOD SPECIMENOrdering Facility: [facility] Address: [address] [place] [address] Performed By: #### 5 7021-8 ####[facility]ATORYCLIA [id number] [address] [place] RBC (Bld) [#/Vol] 3.28 10*6/uL Low 4.20-6.00 [facility] Comment on above: Order Comment: Speci men Type: BLOOD SPECIMENOrdering Facility: [facility] Address: [address] [place] [address] Performed By: #### 5 7021-8 ####[facility]ATORYCLIA [id number] [place] [address] [place] WBC (Bld) [#/Vol] 10.78 10*3/uL Normal 3.70-11.00 [facility] Comment on above: Order Comment: Speci men Type: BLOOD SPECIMENOrdering Facility: [facility] Address: [address] [place] [address] Performed By: #### 5 7021-8 ####[facility]ATORYCLIA [id number] [address] [place] CSF MANUAL DIFFon 07-26-2021 DIF TTL, CSF 100 cells counted Normal [facility] Comment on above: Order Comment: Speci men Type: CEREBROSPINAL FLUIDOrdering Facility: [facility] Address: [address] [place] [address] Performed By: #### 3 4563-7, [id number], [id number] ####[facility]ATORYCLIA [id number] [address] [place] LYMPH%, CSF 26 % Low 50-90 [facility] Comment on above: Order Comment: Speci men Type: CEREBROSPINAL FLUIDOrdering Facility: [facility] Address: [address] [place] [address] Performed By: #### 3 4563-7, [id number], [id number] ####[facility]ATORYCLIA [id number] [address] [place] MACRO%, CSF 10 % High <1 [facility] Comment on above: Order Comment: Speci men Type: CEREBROSPINAL FLUIDOrdering Facility: [facility] Address: [address] [place] [address] Performed By: #### 3 4563-7, [id number], [id number] ####[facility]ATORYCLIA [id number] [place] [address] [place] MONO%, CSF 20 % Normal 10-50 [facility] Comment on above: Order Comment: Speci men Type: CEREBROSPINAL FLUIDOrdering Facility: [facility] Address: [address] [place] [address] Performed By: #### 3 4563-7, [id number], [id number] ####[facility]ATORYCLIA [id number] [place] [address] [place] NEUT%, CSF 40 % High 0-3 [facility] Comment on above: Order Comment: Speci men Type: CEREBROSPINAL FLUIDOrdering Facility: [facility] Address: [address] [place] [address] Performed By: #### 3 4563-7, [id number], [id number] ####[facility] LABORATORYCLIA [id number] [address] OTHER CL%, CSF 2 % Normal [facility] Comment on above: Order Comment: Speci men Type: CEREBROSPINAL FLUIDOrdering Facility: [facility] Address: [address] [place] [address] Result Comment: Path review to follow. Performed By: #### 3 4563-7, [id number], [id number] ####[facility] LABORATORYCLIA [id number] [address] [place] REAC LYMPH %, CSF 2 % Normal [facility] Comment on above: Order Comment: Speci men Type: CEREBROSPINAL FLUIDOrdering Facility: [facility] Address: [address] [place] [address] Performed By: #### 3 4563-7, [id number], [id number] ####[facility]ATORYCLIA [id number] [address] CSF PATHOLOGIST INTERP (LAB REFLEX ORDER-NO BILL)on 07-26-2021 CSF STAFF REVIEW Negative for maligna nt cells. Rare bacteria present, cocci in pairs and chains. Correlation with CSF cultures is recommended. Normal [facility] Comment on above: Order Comment: Speci men Type: CEREBROSPINAL FLUIDOrdering Facility: [facility] Address: [facility] [address] Performed By: #### 3 4563-7, [id number], [id number] ####[facility]ATORYCLIA [id number] [address] Pathologist name Reviewed by Amador Stevens MD [facility] Comment on above: Order Comment: Speci men Type: CEREBROSPINAL FLUIDOrdering Facility: [facility] Address: [address] [place] [address] Performed By: #### 3 4563-7, [id number], [id number] ####[facility]ATORYCLIA [id number] [address] [place] Cell count panel (CSF)on Clarity (CSF) Slightly Cloudy Abnormal Clear [facility] Comment on above: Order Comment: Speci men Type: CEREBROSPINAL FLUIDOrdering Facility: [facility] Address: [address] [place] [address] Performed By: #### 3 4563-7, [id number], [id number] ####[facility]ATORYCLIA [id number] [address] [place] Clarity (Unsp spec) Clear Normal Clear [facility] Comment on above: Order Comment: Speci men Type: CEREBROSPINAL FLUIDOrdering Facility: [facility] Address: [address] [address] Performed By: #### 3 4563-7, [id number], [id number] ####[facility]ORATORYCLIA [id number] [address] Color (CSF) Colorless Normal Colorless [facility] Comment on above: Order Comment: Speci men Type: CEREBROSPINAL FLUIDOrdering Facility: [facility] Address: [address] [address] Performed By: #### 3 4563-7, [id number], [id number] ####[facility]ORATORYCLIA [id number] [address] Color (Spun CSF) Not Indicated Normal Colorless [facility] Comment on above: Order Comment: Speci men Type: CEREBROSPINAL FLUIDOrdering Facility: [facility] Address: [address] [place] [address] Performed By: #### 3 4563-7, [id number], [id number] ####[facility]ORATORYCLIA [id number] [address] CSF TUBE NUMBER Sterile Container Normal [facility] Comment on above: Order Comment: Speci men Type: CEREBROSPINAL FLUIDOrdering Facility: [facility] Address: [address] [place] [address] Performed By: #### 3 4563-7, [id number], [id number] ####[facility]ATORYCLIA [id number] [address] RBC Manual cnt (CSF) [#/Vol] 1 cells/uL Normal 0-5 [facility] Comment on above: Order Comment: Speci men Type: CEREBROSPINAL FLUIDOrdering Facility: [facility] Address: [address] [place] [address] Performed By: #### 3 4563-7, [id number], [id number] ####[facility]ATORYCLIA [id number] [address] WBC Manual cnt (CSF) [#/Vol] 50 cells/uL High 0-5 [facility] Comment on above: Order Comment: Speci men Type: CEREBROSPINAL FLUIDOrdering Facility: [facility] Address: [address] [place] [address] Performed By: #### 3 4563-7, [id number], [id number] ####[facility]ORATORYCLIA [id number] [address] [place] Glucose CSF-mCncon 2 Glucose (CSF) [Mass/Vol] 64 mg/dL Normal 40-70 [facility] Comment on above: Order Comment: Speci men Type: CEREBROSPINAL FLUIDOrdering Facility: [facility] Address: [address] [place], [place] [id number] Result Comment: Lumb ar CSF glucose values of healthy patients are approximately 60% of the plasma values and must always be compared with a concurrently measured plasma value for adequate clinical interpretation.References: 1. Glucose HK (GLUC3) [package insert V 12.0 Citizen Of [place]]. [employer], [place], [place]. September 2015. 2. Michelle Moore, Loki HGarfield (2015). Chapter 7: Glucose and Lactate. F. Irina rose al.(eds.), Cerebrospinal Fluid in Clinical Neurology. [place]: [employer]. Performed By: #### 2 880-3, 2342-4 ####[facility]ATORYCLIA [id number] [address] [place] Magnesium [facility] Magnesium [Mass/Vol] 2.3 mg/dL Normal 1.7-2.3 [facility] Comment on above: Order Comment: Speci [facility] Type: BLOOD SPECIMENOrdering Facility: [facility] Address: [address] [place], [place] [address] Performed By: #### 1 9123-9, 2777-1, 3016-3 ####[facility] [id number] [address] [place] NURSING PROGon 07-26-2021 NURSING PROG Normal [facility] Phosphate SerPl-ncon 07-26 Phosphate [Mass/Vol] 2.6 mg/dL Low 2.7-4.8 [facility] Comment on above: Order Comment: Shira [facility] Type: BLOOD SPECIMENOrdering Facility: [facility] Address: [address] [place], [place] [id number] Performed By: #### 1 9123-9, 2777-1, 3016-3 ####[facility]ORATORYCLIA [id number] [address] [place] Prot CSF-mCncon 07-26-2021 Protein (CSF) [Mass/Vol] 64 mg/dL High 15-45 [facility] Comment on above: Order Comment: Speci men Type: CEREBROSPINAL FLUIDOrdering Facility: [facility] Address: [address] [place] [address] Performed By: #### 2 880-3, 2342-4 ####[facility]ORATORYCLIA [id number] [address] OF [facility] THERAPY NTon 07-26-2021 THERAPY NT Normal [facility] TSH SerPl-aCncon 07-26-2021 TSH Qn 1.470 m[IU]/L Normal 0.270-4.200 [facility] Comment on above: Order Comment: Speci men Type: BLOOD SPECIMENOrdering Facility: [facility] Address: [address] [place] [address] Performed By: #### 1 9123-9, 2777-1, 3016-3 ####[facility]ATORYCLIA [id number] [place] [address] [place] VITAMIN B12 BLOODon 07-27-19 Cobalamin (Vitamin B12) [Mass/Vol] 934 pg/mL Normal 232-1,245 [facility] Comment on above: Order Comment: Speci men Type: BLOOD SPECIMENOrdering Facility: [facility] Address: [address] [place] [address] Performed By: #### B 12 ####[facility]ATORYCLIA [id number] [place] [address] [place] aPTT PPPon 07-26-2021 aPTT Coag (PPP) [Time] 53.6 s High 23.0-32.[address] [facility] Comment on above: Order Comment: Speci men Type: BLOOD SPECIMENOrdering Facility: [facility] Address: [address] [place] [address] Performed By: #### 1 4979-9 ####[facility]ATORYCLIA [id number] [address] [place] aPTT Coag (PPP) [Time] 44.9 s High 23.0-32.[address] [facility] Comment on above: Order Comment: Speci men Type: BLOOD SPECIMENOrdering Facility: [facility] Address: [address] [place] [address] Performed By: #### 1 4979-9 ####[facility]ORATORYCLIA [id number] [address] [place] ALLIED HEALTHon 07-25-2021 ALLIED HEALTH HNO ID: [id number] Author: Shannon Bess RT(R) Service: Radiology Author Type: Technologist Type: Allied Health Filed: 07/25/2021 1:37 PM Note Text: Called floor for MRI screening form [id number] Normal [facility] Bacteria Bld Culton 07-26-19 22 Bacteria identified Cx Nom (Bld) CULTURE, BLOOD: No growth 5 days Normal [facility] Comment on above: Performed By: #### 6 00-7 ####[facility]ORATORYCLIA [id number] [address] STATES OF [facility] Bacteria identified Cx Nom (Bld) CULTURE, BLOOD: No growth 5 days Normal [facility] Comment on above: Performed By: #### 6 00-7 ####[facility] LABORATORYCLIA [id number] [address] CASE MANAGEMon 07-25-2021 CASE MANAGEM Normal [facility] CBC W Auto Differential pane l (Bld)on 07-25-2021 Basophils (Bld) [#/Vol] 0.06 10*3/uL Normal <0.11 [facility] Comment on above: Order Comment: Speci men Type: BLOOD SPECIMENOrdering Facility: [facility] Address: [address] [place], [place] [phone] Performed By: #### 5 7021-8 ####[facility]ORATORYCLIA [id number] [address] Basophils/100 WBC (Bld) 0.6 % Normal [facility] Comment on above: Order Comment: Speci men Type: BLOOD SPECIMENOrdering Facility: [facility] Address: [address] [address] Performed By: #### 5 7021-8 ####[facility]ORATORYCLIA [id number] [address] Differential cell count method Nom (Bld) Auto Normal [facility] Comment on above: Order Comment: Speci men Type: BLOOD SPECIMENOrdering Facility: [facility] Address: [address] [place] [address] Performed By: #### 5 7021-8 ####[facility]ORATORYCLIA [id number] [address] [place] Eosinophils (Bld) [#/Vol] 0.26 10*3/uL Normal <0.46 [facility] Comment on above: Order Comment: Speci men Type: BLOOD SPECIMENOrdering Facility: [facility] Address: [address] [place] [address] Performed By: #### 5 7021-8 ####[facility]ATORYCLIA [id number] [address] Eosinophils/100 WBC (Bld) 2.5 % Normal [facility] Comment on above: Order Comment: Speci men Type: BLOOD SPECIMENOrdering Facility: [facility] Address: [address] [place] [address] Performed By: #### 5 7021-8 ####[facility]ATORYCLIA [id number] [address] Erythrocyte distribution width (RBC) [Ratio] 16.9 % High 11.5-15.0 [facility] Comment on above: Order Comment: Speci men Type: BLOOD SPECIMENOrdering Facility: [facility] Address: [address] [place] [address] Performed By: #### 5 7021-8 ####[facility]ATORYCLIA [id number] [address] [place] Hematocrit (Bld) [Volume fraction] 29.6 % Low 39.0-51.0 [facility] Comment on above: Order Comment: Speci men Type: BLOOD SPECIMENOrdering Facility: [facility] Address: [address] [place] [address] Performed By: #### 5 7021-8 ####[facility]ORATORYCLIA [id number] [address] OF [facility] Hemoglobin (Bld) [Mass/Vol] 8.8 g/dL Low 13.0-17.0 [facility] Comment on above: Order Comment: Speci men Type: BLOOD SPECIMENOrdering Facility: [facility] Address: [address] [place] [address] Performed By: #### 5 7021-8 ####[facility]ORATORYCLIA [id number] [address] IMMATURE GRAN % 0.6 % Normal [facility] Comment on above: Order Comment: Speci men Type: BLOOD SPECIMENOrdering Facility: [facility] Address: [address] [place] [address] Performed By: #### 5 7021-8 ####[facility]ORATORYCLIA [id number] [address] IMMATURE GRAN ABS 0.06 k/uL Normal <0.10 [facility] Comment on above: Order Comment: Speci men Type: BLOOD SPECIMENOrdering Facility: [facility] Address: [address] [place] [address] Performed By: #### 5 7021-8 ####[facility]ORATORYCLIA [id number] [address] OF [facility] Lymphocytes (Bld) [#/Vol] 2.15 10*3/uL Normal 1.00-4.00 [facility] Comment on above: Order Comment: Speci men Type: BLOOD SPECIMENOrdering Facility: [facility] Address: [address] [place] [address] Performed By: #### 5 7021-8 ####[facility]ATORYCLIA [id number] [address] Lymphocytes/100 WBC (Bld) 20.7 % Normal [facility] Comment on above: Order Comment: Speci men Type: BLOOD SPECIMENOrdering Facility: [facility] Address: [address] [place] [address] Performed By: #### 5 7021-8 ####[facility]ORATORYCLIA [id number] [address] MCH (RBC) [Entitic mass] 28.2 pg Normal 26.0-34.0 [facility] Comment on above: Order Comment: Speci men Type: BLOOD SPECIMENOrdering Facility: [facility] Address: [address] [place] [address] Performed By: #### 5 7021-8 ####[facility]ORATORYCLIA [id number] [address] MCHC (RBC) [Mass/Vol] 29.7 g/dL Low 30.5-36.0 [facility] Comment on above: Order Comment: Speci men Type: BLOOD SPECIMENOrdering Facility: [facility] Address: [address] [place] [address] Performed By: #### 5 7021-8 ####[facility]ATORYCLIA [id number] [address] MCV (RBC) [Entitic vol] 94.9 fL Normal 80.0-100.0 [facility] Comment on above: Order Comment: Speci men Type: BLOOD SPECIMENOrdering Facility: [facility] Address: [address] [place] [address] Performed By: #### 5 7021-8 ####[facility]ORATORYCLIA [id number] [address] Monocytes (Bld) [#/Vol] 0.62 10*3/uL Normal <0.87 [facility] Comment on above: Order Comment: Speci men Type: BLOOD SPECIMENOrdering Facility: [facility] Address: [address] [place] [address] Performed By: #### 5 7021-8 ####[facility]ORATORYCLIA [id number] [address] [place] Monocytes/100 WBC (Bld) 6.0 % Normal [facility] Comment on above: Order Comment: Speci men Type: BLOOD SPECIMENOrdering Facility: [facility] Address: [address] [place] [address] Performed By: #### 5 7021-8 ####[facility]ATORYCLIA [id number] [place] [address] [place] Neutrophils (Bld) [#/Vol] 7.25 10*3/uL Normal 1.45-7.50 [facility] Comment on above: Order Comment: Speci men Type: BLOOD SPECIMENOrdering Facility: [facility] Address: [address] [place] [address] Performed By: #### 5 7021-8 ####[facility]ATORYCLIA [id number] [address] Neutrophils/100 WBC (Bld) 69.6 % Normal [facility] Comment on above: Order Comment: Speci men Type: BLOOD SPECIMENOrdering Facility: [facility] Address: [address] [place] [address] Performed By: #### 5 7021-8 ####[facility]ATORYCLIA [id number] [address] [place] Nucleated RBC (Bld) [#/Vol] 10*3/uL Normal <0.01 [facility] Comment on above: Order Comment: Speci men Type: BLOOD SPECIMENOrdering Facility: [facility] Address: [address] [place] [address] Performed By: #### 5 7021-8 ####[facility]ATORYCLIA [id number] [address] [place] Nucleated RBC/100 WBC (Bld) [Ratio] 0.0 /100 WBC Normal [facility] Comment on above: Order Comment: Speci men Type: BLOOD SPECIMENOrdering Facility: [facility] Address: [address] [place] [address] Performed By: #### 5 7021-8 ####[facility]ORATORYCLIA [id number] [address] Platelet mean volume (Bld) [Entitic vol] 11.3 fL Normal 9.0-12.7 [facility] Comment on above: Order Comment: Speci men Type: BLOOD SPECIMENOrdering Facility: [facility] Address: [address] [place] [address] Performed By: #### 5 7021-8 ####[facility]ORATORYCLIA [id number] [address] [place] Platelets (Bld) [#/Vol] 243 10*3/uL Normal 150-400 [facility] Comment on above: Order Comment: Speci men Type: BLOOD SPECIMENOrdering Facility: [facility] Address: [address] [place] [address] Performed By: #### 5 7021-8 ####[facility]ATORYCLIA [id number] [address] [place] RBC (Bld) [#/Vol] 3.12 10*6/uL Low 4.20-6.00 [facility] Comment on above: Order Comment: Speci men Type: BLOOD SPECIMENOrdering Facility: [facility] Address: [address] [place], [place] [address] Performed By: #### 5 7021-8 ####[facility]ORATORYCLIA [id number] [address] [place] WBC (Bld) [#/Vol] 10.40 10*3/uL Normal 3.70-11.00 [facility] Comment on above: Order Comment: Speci men Type: BLOOD SPECIMENOrdering Facility: [facility] Address: [address] [place] [address] Performed By: #### 5 7021-8 ####[facility]ORATORYCLIA [id number] [place] [address] [place] CONSULT PROGon 07-25-2021 CONSULT PROG Normal [facility] MYCOPLASMA PNEUM IGMon 07-25 M. PNEUMO IGM, QUAL Negative Normal Negative [facility] Comment on above: Order Comment: Speci men Type: BLOOD SPECIMENOrdering Facility: [facility] Address: [address] [place] [address] Result Comment: Myco plasma pneumoniae IgM antibody test is used as an aid in diagnosis of recent infection with M. pneumoniae. It may occasionally remain elevated for extended periods after an acute infection. Cannot exclude recent infection if the specimen collected 7-10 days after onset of signs and symptoms. Clinical correlation is required. Performed By: #### M YCOPM ####[facility] LABCLIA [id number] [facility] [id number] [place] NURSING PROGon 07-25-2021 NURSING PROG Normal [facility] THERAPY NTon 07-25-2021 THERAPY NT Normal [facility] THERAPY NT Normal [facility] aPTT PPPon 07-25-2021 aPTT Coag (PPP) [Time] 62.6 s High 23.0-32.[address] [facility] Comment on above: Order Comment: Speci men Type: BLOOD SPECIMENOrdering Facility: [facility] Address: [address] [place] [address] Performed By: #### 1 4979-9 ####[facility]ORATORYCLIA [id number] [address] [place] Bacteria Ur Culton 2 Bacteria identified Cx Nom (U) CULTURE, URINE: No growth (<100 CFU/ml) Normal [facility] Comment on above: Performed By: #### 6 30-4 ####[facility]ATORYCLIA [id number] [place] [address] [place] Basic metabolic 2000 panelon 07-24-2021 Anion gap [Moles/Vol] 13 mmol/L Normal 9-18 [facility] Comment on above: Order Comment: Speci men Type: BLOOD SPECIMENOrdering Facility: [facility] Address: [address] [place] [address] Performed By: #### 1 9123-9, PROCAL, 2776-05, 34534-3 ####[facility]ATORYCLIA [id number] [place] [address] [place] Calcium [Mass/Vol] 9.5 mg/dL Normal 8.5-10.2 [facility] Comment on above: Order Comment: Speci men Type: BLOOD SPECIMENOrdering Facility: [facility] Address: [address] [place] [address] Performed By: #### 1 9123-9, PROCAL, 2776-05, 44753-6 ####[facility]ATORYCLIA [id number] [place] [address] [place] Chloride [Moles/Vol] 102 mmol/L Normal 97-105 [facility] Comment on above: Order Comment: Speci men Type: BLOOD SPECIMENOrdering Facility: [facility] Address: [address] [place] [address] Performed By: #### 1 9123-9, PROCAL, 2776-05, 82662-6 ####[facility]ATORYCLIA [id number] [place] [address] [place] CO2 [Moles/Vol] 28 mmol/L Normal 22-30 [facility] Comment on above: Order Comment: Speci men Type: BLOOD SPECIMENOrdering Facility: [facility] Address: [address] [place] [address] Performed By: #### 1 9123-9, PROCAL, 2776-05, 94920-8 ####[facility]ATORYCLIA [id number] [place] [address] [place] Creatinine [Mass/Vol] 0.86 mg/dL Normal 0.73-1.22 [facility] Comment on above: Order Comment: Speci men Type: BLOOD SPECIMENOrdering Facility: [facility] Address: [address] [place] [address] Performed By: #### 1 9123-9, PROCAL, 2777-1, 34265-6 ####[facility]ORATORYCLIA [id number] [address] [place] ESTIMATED GLOMERULAR FILTRATION RATE 94 mL/min/1.73m??? Normal >=60 [facility] Comment on above: Order Comment: Shira francia Type: BLOOD SPECIMENOrdering Facility: [facility] Address: [address] [place] [address] Result Comment: Luzmaria mated Glomerular Filtration Rate [...] actual GFR. Performed By: #### 1 9123-9, PROCCARLITOS, 2777-1, 84484-3 ####[facility]ORATORYCLIA [id number] [place] [address] [place] Glucose [Mass/Vol] 148 mg/dL High 74-99 [facility] Comment on above: Order Comment: Shira feldman Type: BLOOD SPECIMENOrdering Facility: [facility] Address: [address] [place] [address] Result Comment: The [place] [employer] (ADA) provides guidance for cutoff [...] Standards of Medical Care in Diabetes 2016, [place] [employer]. Diabetes Care. 2016.39(Suppl 1). Performed By: #### 1 9123-9, PROCAL, 2777-1, 89621-6 ####[facility]ORATORYCLIA [id number] [place] [address] [place] Potassium [Moles/Vol] 4.0 mmol/L Normal 3.7-5.1 [facility] Comment on above: Order Comment: Speci men Type: BLOOD SPECIMENOrdering Facility: [facility] Address: [address] [place] [address] Performed By: #### 1 9123-9, KATIE, 2777-, 04419-0 ####[facility] LABORATORYCLIA [id number] [address] STATES OF [facility] Sodium [Moles/Vol] 143 mmol/L Normal 136-144 [facility] Comment on above: Order Comment: Speci men Type: BLOOD SPECIMENOrdering Facility: [facility] Address: [address] [place] [address] Performed By: #### 1 9123-9, KATIE, 2777-1, 87075-7 ####[facility] [id number] [address] Urea nitrogen [Mass/Vol] 38 mg/dL High 9-24 [facility] Comment on above: Order Comment: Speci men Type: BLOOD SPECIMENOrdering Facility: [facility] Address: [address] [place] [address] Performed By: #### 1 9123-9, KATIE, 2777-1, 63873-9 ####[facility]ORATORYCLIA [id number] [address] STATES OF [facility] CBC W Auto Differential pane l (Bld)on 07-24-2021 Basophils (Bld) [#/Vol] 0.06 10*3/uL Normal <0.11 [facility] Comment on above: Order Comment: Speci men Type: BLOOD SPECIMENOrdering Facility: [facility] Address: [address] [place] [address] Performed By: #### 5 7021-8 ####[facility]ORATORYCLIA [id number] [address] [place] Basophils/100 WBC (Bld) 0.6 % Normal [facility] Comment on above: Order Comment: Speci men Type: BLOOD SPECIMENOrdering Facility: [facility] Address: [address] [place] [address] Performed By: #### 5 7021-8 ####[facility]ORATORYCLIA [id number] [address] Differential cell count method Nom (Bld) Auto Normal [facility] Comment on above: Order Comment: Speci men Type: BLOOD SPECIMENOrdering Facility: [facility] Address: [address] [place] [address] Performed By: #### 5 7021-8 ####[facility]ATORYCLIA [id number] [address] [place] Eosinophils (Bld) [#/Vol] 0.03 10*3/uL Normal <0.46 [facility] Comment on above: Order Comment: Speci men Type: BLOOD SPECIMENOrdering Facility: [facility] Address: [address] [place] [address] Performed By: #### 5 7021-8 ####[facility]ORATORYCLIA [id number] [address] Eosinophils/100 WBC (Bld) 0.3 % Normal [facility] Comment on above: Order Comment: Speci men Type: BLOOD SPECIMENOrdering Facility: [facility] Address: [address] [place] [address] Performed By: #### 5 7021-8 ####[facility] LABORATORYCLIA [id number] [address] [place] Erythrocyte distribution width (RBC) [Ratio] 17.0 % High 11.5-15.0 [facility] Comment on above: Order Comment: Speci men Type: BLOOD SPECIMENOrdering Facility: [facility] Address: [address] [place] [address] Performed By: #### 5 7021-8 ####[facility] LABORATORYCLIA [id number] [address] Hematocrit (Bld) [Volume fraction] 30.5 % Low 39.0-51.0 [facility] Comment on above: Order Comment: Speci men Type: BLOOD SPECIMENOrdering Facility: [facility] Address: [address] [place] [address] Performed By: #### 5 7021-8 ####[facility]ORATORYCLIA [id number] [address] Hemoglobin (Bld) [Mass/Vol] 9.0 g/dL Low 13.0-17.0 [facility] Comment on above: Order Comment: Speci men Type: BLOOD SPECIMENOrdering Facility: [facility] Address: [address] [place] [address] Performed By: #### 5 7021-8 ####[facility] LABORATORYCLIA [id number] [address] IMMATURE GRAN % 0.5 % Normal [facility] Comment on above: Order Comment: Speci men Type: BLOOD SPECIMENOrdering Facility: [facility] Address: [address] [place] [address] Performed By: #### 5 7021-8 ####[facility] LABORATORYCLIA [id number] [address] IMMATURE GRAN ABS 0.05 k/uL Normal <0.10 [facility] Comment on above: Order Comment: Speci men Type: BLOOD SPECIMENOrdering Facility: [facility] Address: [address] [place] [address] Performed By: #### 5 7021-8 ####[facility] LABORATORYCLIA [id number] [address] Lymphocytes (Bld) [#/Vol] 1.68 10*3/uL Normal 1.00-4.00 [facility] Comment on above: Order Comment: Speci men Type: BLOOD SPECIMENOrdering Facility: [facility] Address: [address] [place], [place] [id number] Performed By: #### 5 7021-8 ####[facility] LABORATORYCLIA [id number] [address] Lymphocytes/100 WBC (Bld) 16.2 % Normal [facility] Comment on above: Order Comment: Speci men Type: BLOOD SPECIMENOrdering Facility: [facility] Address: [address] [place] [address] Performed By: #### 5 7021-8 ####[facility] LABORATORYCLIA [id number] [address] MCH (RBC) [Entitic mass] 27.4 pg Normal 26.0-34.0 [facility] Comment on above: Order Comment: Speci men Type: BLOOD SPECIMENOrdering Facility: [facility] Address: [address] [place] [address] Performed By: #### 5 7021-8 ####[facility]ORATORYCLIA [id number] [address] MCHC (RBC) [Mass/Vol] 29.5 g/dL Low 30.5-36.0 [facility] Comment on above: Order Comment: Speci men Type: BLOOD SPECIMENOrdering Facility: [facility] Address: [address] [place] [address] Performed By: #### 5 7021-8 ####[facility]ORATORYCLIA [id number] [address] [place] [facility] MCV (RBC) [Entitic vol] 93.0 fL Normal 80.0-100.0 [facility] Comment on above: Order Comment: Speci men Type: BLOOD SPECIMENOrdering Facility: [facility] Address: [address] [place] [address] Performed By: #### 5 7021-8 ####[facility]ORATORYCLIA [id number] [address] Monocytes (Bld) [#/Vol] 0.63 10*3/uL Normal <0.87 [facility] Comment on above: Order Comment: Speci men Type: BLOOD SPECIMENOrdering Facility: [facility] Address: [address] [place] [address] Performed By: #### 5 7021-8 ####[facility]ORATORYCLIA [id number] [address] [place] Monocytes/100 WBC (Bld) 6.1 % Normal [facility] Comment on above: Order Comment: Speci men Type: BLOOD SPECIMENOrdering Facility: [facility] Address: [address] [place] [address] Performed By: #### 5 7021-8 ####[facility]ATORYCLIA [id number] [address] [place] Neutrophils (Bld) [#/Vol] 7.91 10*3/uL High 1.45-7.50 [facility] Comment on above: Order Comment: Speci men Type: BLOOD SPECIMENOrdering Facility: [facility] Address: [address] [place] [address] Performed By: #### 5 7021-8 ####[facility]ORATORYCLIA [id number] [address] Neutrophils/100 WBC (Bld) 76.3 % Normal [facility] Comment on above: Order Comment: Speci men Type: BLOOD SPECIMENOrdering Facility: [facility] Address: [address] [place] [address] Performed By: #### 5 7021-8 ####[facility]ATORYCLIA [id number] [address] [place] Nucleated RBC (Bld) [#/Vol] 10*3/uL Normal <0.01 [facility] Comment on above: Order Comment: Speci men Type: BLOOD SPECIMENOrdering Facility: [facility] Address: [address] [place] [address] Performed By: #### 5 7021-8 ####[facility] LABORATORYCLIA [id number] [address] OF [facility] Nucleated RBC/100 WBC (Bld) [Ratio] 0.0 /100 WBC Normal [facility] Comment on above: Order Comment: Speci men Type: BLOOD SPECIMENOrdering Facility: [facility] Address: [address] [place] [address] Performed By: #### 5 7021-8 ####[facility]ORATORYCLIA [id number] [address] [place] Platelet mean volume (Bld) [Entitic vol] 11.1 fL Normal 9.0-12.7 [facility] Comment on above: Order Comment: Speci men Type: BLOOD SPECIMENOrdering Facility: [facility] Address: [address] [place] [address] Performed By: #### 5 7021-8 ####[facility]ORATORYCLIA [id number] [address] [place] Platelets (Bld) [#/Vol] 285 10*3/uL Normal 150-400 [facility] Comment on above: Order Comment: Speci men Type: BLOOD SPECIMENOrdering Facility: [facility] Address: [address] [place] [address] Performed By: #### 5 7021-8 ####[facility]ORATORYCLIA [id number] [address] [place] RBC (Bld) [#/Vol] 3.28 10*6/uL Low 4.20-6.00 [facility] Comment on above: Order Comment: Speci men Type: BLOOD SPECIMENOrdering Facility: [facility] Address: [address] [place] [address] Performed By: #### 5 7021-8 ####[facility]ORATORYCLIA [id number] [address] [place] WBC (Bld) [#/Vol] 10.36 10*3/uL Normal 3.70-11.00 [facility] Comment on above: Order Comment: Speci men Type: BLOOD SPECIMENOrdering Facility: [facility] Address: [address] [place] [address] Performed By: #### 5 7021-8 ####[facility]ORATORYCLIA [id number] [address] Legionella Ag Ur Qlon 2021 Legionella sp Ag Ql (U) Negative Normal Negative [facility] Comment on above: Order Comment: Speci men Type: URINE SPECIMENOrdering Facility: [facility] Address: [address] [place] [address] Performed By: #### 3 2781-7 ####[facility]ORATORYCLIA [id number] [address] Magnesium SerPl-mCncon 07-24 Magnesium [Mass/Vol] 2.3 mg/dL Normal 1.7-2.3 [facility] Comment on above: Order Comment: Speci men Type: BLOOD SPECIMENOrdering Facility: [facility] Address: [address] [place] [address] Performed By: #### 1 9123-9, PROCAL, 7-1, 45717-9 ####[facility]ORATORYCLIA [id number] [address] NURSING PROGon 07-24-2021 NURSING PROG Normal [facility] PROCALCITONIN (LAB)on 2021 Procalcitonin [Mass/Vol] 0.15 ng/mL High <0.09 [facility] Comment on above: Order Comment: Speci men Type: BLOOD SPECIMENOrdering Facility: [facility] Address: [address] [place] [address] Result Comment: For a guided interpretation of test results, please visit the Change in Procalcitonin Calculator, [email or web address]. Performed By: #### 1 9123-9, PROCAL, 2777-1, 81835-6 ####[facility]ORATORYCLIA [id number] [address] Phosphate SerPl-mCncon 07-24 Phosphate [Mass/Vol] 3.9 mg/dL Normal 2.7-4.8 [facility] Comment on above: Order Comment: Speci men Type: BLOOD SPECIMENOrdering Facility: [facility] Address: [address] [place] [address] Performed By: #### 1 9123-9, PROCAL, 2777-1, 00792-3 ####[facility]ORATORYCLIA [id number] [address] STREPTOCOCCUS PNEUMONIAE AGo n 07-24-2021 STREPTOCOCCUS PNEUMONIAE AG Normal [facility] Comment on above: Performed By: #### S PNAG ####[facility]ORATORYCLIA [id number] [address] aPTT PPPon 07-24-2021 aPTT Coag (PPP) [Time] 60.8 s High 23.0-32.[address] [facility] Comment on above: Order Comment: Speci men Type: BLOOD SPECIMENOrdering Facility: [facility] Address: [address] [place] [address] Performed By: #### 1 4979-9 ####[facility]ORATORYCLIA [id number] [address] aPTT Coag (PPP) [Time] 38.2 s High 23.0-32.[address] [facility] Comment on above: Order Comment: Speci men Type: BLOOD SPECIMENOrdering Facility: [facility] Address: [address] [place] [address] Performed By: #### 1 4979-9 ####[facility]ATORYCLIA [id number] [address] aPTT Coag (PPP) [Time] 35.9 s High 23.0-32.[address] [facility] Comment on above: Order Comment: Speci men Type: BLOOD SPECIMENOrdering Facility: [facility] Address: [address] [place] [address] Performed By: #### 1 4979-9 ####[facility] [id number] [place] [address] [place] aPTT Coag (PPP) [Time] 28.8 s Normal 23.0-32.[address] [facility] Comment on above: Order Comment: Speci men Type: BLOOD SPECIMENOrdering Facility: [facility] Address: [address] [place] [address] Performed By: #### 1 4979-9 ####[facility]ORATORYCLIA [id number] [address] [place] ALLIED HEALTHon 07-23-2021 ALLIED HEALTH Normal [facility] ALLIED HEALTH Normal [facility] ALLIED HEALTH Normal [facility] ARTERIAL BLOOD GASESon 07-23 Base excess Calc (Bld) [Moles/Vol] 4 mmol/L High 0-2 [facility] Comment on above: Order Comment: Speci men Type: ARTERIAL BLOOD SPECIMENOrdering Facility: [facility] Address: [address] [place] [address] Performed By: #### A LLBG ####[facility]ORATORYCLIA [id number] [address] [place] [facility] Body temperature 100.58 [degF] Normal [facility] Comment on above: Order Comment: Speci men Type: ARTERIAL BLOOD SPECIMENOrdering Facility: [facility] Address: [address] [place] [address] Performed By: #### A LLBG ####[facility]ORATORYCLIA [id number] [address] [place] [facility] CALCIUM IONIZED, PH CORRECTED 1.26 mmol/L Normal 1.08-1.30 [facility] Comment on above: Order Comment: Speci men Type: ARTERIAL BLOOD SPECIMENOrdering Facility: [facility] Address: [address] [place] [address] Performed By: #### A LLBG ####[facility]ORATORYCLIA [id number] [address] [place] Calcium.ionized (BldV) [Mass/Vol] 1.25 mmol/L Normal 1.08-1.30 [facility] Comment on above: Order Comment: Speci men Type: ARTERIAL BLOOD SPECIMENOrdering Facility: [facility] Address: [address] [place] [address] Performed By: #### A LLBG ####[facility]ORATORYCLIA [id number] [address] [place] Carboxyhemoglobin (BldA) [Mass fraction] 1.2 % Normal 0.0-2.0 [facility] Comment on above: Order Comment: Speci men Type: ARTERIAL BLOOD SPECIMENOrdering Facility: [facility] Address: [address] [place] [address] Result Comment: Carb oxyhemoglobin Reference Range for Smokers: 2.0-8.0% Performed By: #### A LLBG ####[facility]ORATORYCLIA [id number] [address] [place] CO2 (Bld) [Partial pressure] 46 mm Hg Normal 36-46 [facility] Comment on above: Order Comment: Speci men Type: ARTERIAL BLOOD SPECIMENOrdering Facility: [facility] Address: [address] [place] [address] Performed By: #### A LLBG ####[facility]ORATORYCLIA [id number] [address] [place] CO2 [Moles/Vol] 27 mmol/L Normal 22-28 [facility] Comment on above: Order Comment: Speci men Type: ARTERIAL BLOOD SPECIMENOrdering Facility: [facility] Address: [address] [place] [address] Performed By: #### A LLBG ####[facility]ORATORYCLIA [id number] [address] [place] CO2 adjusted to patient's actual temperature (Bld) [Partial pressure] 48 mmHg High 36-46 [facility] Comment on above: Order Comment: Speci men Type: ARTERIAL BLOOD SPECIMENOrdering Facility: [facility] Address: [address] [place] [address] Performed By: #### A LLBG ####[facility]ORATORYCLIA [id number] [address] [place] Glucose [Mass/Vol] 134 mg/dL High 60-105 [facility] Comment on above: Order Comment: Speci men Type: ARTERIAL BLOOD SPECIMENOrdering Facility: [facility] Address: [address] [place] [address] Performed By: #### A LLBG ####[facility]ORATORYCLIA [id number] [place] [address] [place] HCO3 (Bld) [Moles/Vol] 29 mmol/L High 22-[address] [facility] Comment on above: Order Comment: Speci men Type: ARTERIAL BLOOD SPECIMENOrdering Facility: [facility] Address: [address] [place] [address] Performed By: #### A LLBG ####[facility]ORATORYCLIA [id number] [address] [place] Hematocrit (Bld) [Volume fraction] 31.4 % Low 39.0-51.0 [facility] Comment on above: Order Comment: Speci men Type: ARTERIAL BLOOD SPECIMENOrdering Facility: [facility] Address: [address] [place] [address] Performed By: #### A LLBG ####[facility]ORATORYCLIA [id number] [address] [place] Hemoglobin (Bld) [Mass/Vol] 10.2 g/dL Low 13.0-17.0 [facility] Comment on above: Order Comment: Speci men Type: ARTERIAL BLOOD SPECIMENOrdering Facility: [facility] Address: [address] [place] [address] Performed By: #### A LLBG ####[facility]ORATORYCLIA [id number] [address] [place] Methemoglobin (Bld) [Mass fraction] % Normal 0.0-1.5 [facility] Comment on above: Order Comment: Speci men Type: ARTERIAL BLOOD SPECIMENOrdering Facility: [facility] Address: [address] [place] [place] [address] Performed By: #### A LLBG ####[facility]ORATORYCLIA [id number] [address] [place] O2 THERAPY Ventilator Normal [facility] Comment on above: Order Comment: Speci men Type: ARTERIAL BLOOD SPECIMENOrdering Facility: [facility] Address: [facility] [place] [address] Performed By: #### A LLBG ####[facility]ATORYCLIA [id number] [address] [place] Oxygen (Bld) [Partial pressure] 113 mm Hg High 85-95 [facility] Comment on above: Order Comment: Speci men Type: ARTERIAL BLOOD SPECIMENOrdering Facility: [facility] Address: [address] [place] [address] Performed By: #### A LLBG ####[facility]ORATORYCLIA [id number] [address] Oxygen adjusted to patient's actual temperature (Bld) [Partial pressure] 119 mmHg High 85-95 [facility] Comment on above: Order Comment: Speci men Type: ARTERIAL BLOOD SPECIMENOrdering Facility: [facility] Address: [address] [place] [address] Performed By: #### A LLBG ####[facility]ORATORYCLIA [id number] [address] [place] OXYGEN SATURATION, ARTERIAL 98 % Normal 95-98 [facility] Comment on above: Order Comment: Speci men Type: ARTERIAL BLOOD SPECIMENOrdering Facility: [facility] Address: [address] [place] [address] Performed By: #### A LLBG ####[facility]ATORYCLIA [id number] [address] [place] Oxyhemoglobin (BldA) [Mass fraction] 96 % Normal 95-98 [facility] Comment on above: Order Comment: Speci men Type: ARTERIAL BLOOD SPECIMENOrdering Facility: [facility] Address: [address] [place] [address] Performed By: #### A LLBG ####[facility]ATORYCLIA [id number] [address] STATES OF [facility] pH (Bld) 7.41 [pH] Normal 7.35-7.45 [facility] Comment on above: Order Comment: Speci men Type: ARTERIAL BLOOD SPECIMENOrdering Facility: [facility] Address: [address] [place] [address] Performed By: #### A LLBG ####[facility]ATORYCLIA [id number] [address] pH adjusted to patient's actual temperature (Bld) 7.40 Normal 7.35-7.45 [facility] Comment on above: Order Comment: Speci men Type: ARTERIAL BLOOD SPECIMENOrdering Facility: [facility] Address: [address] [place] [address] Performed By: #### A LLBG ####[facility]ATORYCLIA [id number] [address] [place] Potassium [Moles/Vol] 4.3 mmol/L Normal 3.5-5.0 [facility] Comment on above: Order Comment: Speci men Type: ARTERIAL BLOOD SPECIMENOrdering Facility: [facility] Address: [address] [place] [address] Performed By: #### A LLBG ####[facility]ORATORYCLIA [id number] [address] [place] Sodium [Moles/Vol] 144 mmol/L Normal 136-144 [facility] Comment on above: Order Comment: Speci men Type: ARTERIAL BLOOD SPECIMENOrdering Facility: [facility] Address: [address] [place] [address] Performed By: #### A LLBG ####[facility]ORATORYCLIA [id number] [address] [place] Bacteria CSF Culton 07-24-19 22 Bacteria identified Cx Nom (CSF) Abnormal [facility] Comment on above: Performed By: #### 6 06-4 ####[facility]ATORYCLIA [id number] [place] [address] [place] Basic metabolic 2000 panelon 07-23-2021 Anion gap [Moles/Vol] 12 mmol/L Normal 9-18 [facility] Comment on above: Order Comment: Speci men Type: BLOOD SPECIMENOrdering Facility: [facility] Address: [address] [place] [address] Performed By: #### 2 4321-2 ####[facility]ORATORYCLIA [id number] [place] [address] [place] Calcium [Mass/Vol] 9.7 mg/dL Normal 8.5-10.2 [facility] Comment on above: Order Comment: Speci men Type: BLOOD SPECIMENOrdering Facility: [facility] Address: [address] [place] [address] Performed By: #### 2 4321-2 ####[facility]ORATORYCLIA [id number] [place] [address] [place] Chloride [Moles/Vol] 105 mmol/L Normal 97-105 [facility] Comment on above: Order Comment: Speci men Type: BLOOD SPECIMENOrdering Facility: [facility] Address: [address] [place] [address] Performed By: #### 2 4321-2 ####[facility]ATORYCLIA [id number] [place] [address] [place] CO2 [Moles/Vol] 28 mmol/L Normal 22-30 [facility] Comment on above: Order Comment: Speci men Type: BLOOD SPECIMENOrdering Facility: [facility] Address: [address] [place] [address] Performed By: #### 2 4321-2 ####[facility]ATORYCLIA [id number] [place] [address] [place] Creatinine [Mass/Vol] 0.78 mg/dL Normal 0.73-1.22 [facility] Comment on above: Order Comment: Shira feldman Type: BLOOD SPECIMENOrdering Facility: [facility] Address: [address] [address] Performed By: #### 2 4321-2 ####[facility]ORATORYCLIA [id number] [address] [place] ESTIMATED GLOMERULAR FILTRATION RATE 97 mL/min/1.73m??? Normal >=60 [facility] Comment on above: Order Comment: Shira feldman Type: BLOOD SPECIMENOrdering Facility: [facility] Address: [address] [place] [address] Result Comment: Luzmaria mated Glomerular Filtration Rate [...] actual GFR. Performed By: #### 2 4321-2 ####[facility]ATORYCLIA [id number] [place] [address] [place] Glucose [Mass/Vol] 127 mg/dL High 74-99 [facility] Comment on above: Order Comment: Shira feldman Type: BLOOD SPECIMENOrdering Facility: [facility] Address: [address] [place] [address] Result Comment: The [place] [employer] (ADA) provides guidance for cutoff [...] Standards of Medical Care in Diabetes 2016, [place] [employer]. Diabetes Care. 2016.39(Suppl 1). Performed By: #### 2 4321-2 ####[facility]ORATORYCLIA [id number] [address] STATES OF [facility] Potassium [Moles/Vol] 4.3 mmol/L Normal 3.7-5.1 [facility] Comment on above: Order Comment: Speci men Type: BLOOD SPECIMENOrdering Facility: [facility] Address: [address] [place] [address] Performed By: #### 2 4321-2 ####[facility]ATORYCLIA [id number] [address] [place] [facility] Sodium [Moles/Vol] 145 mmol/L High 136-144 [facility] Comment on above: Order Comment: Speci men Type: BLOOD SPECIMENOrdering Facility: [facility] Address: [address] [place] [address] Performed By: #### 2 4321-2 ####[facility]ATORYCLIA [id number] [address] Urea nitrogen [Mass/Vol] 37 mg/dL High 9-24 [facility] Comment on above: Order Comment: Speci men Type: BLOOD SPECIMENOrdering Facility: [facility] Address: [address] [place] [address] Performed By: #### 2 4321-2 ####[facility]ORATORYCLIA [id number] [address] C diff Tox gens Stl Ql MEGAN+p robeon 07-23-2021 C. difficile toxin genes MEGAN+probe Ql (Stl) Negative Normal Negative for C. difficile toxin by PCR [facility] Comment on above: Order Comment: Speci men Type: STOOL SPECIMENOrdering Facility: [facility] Address: [address] [place] [address] Performed By: #### 5 4067-4 ####[facility]ATORYCLIA [id number] [address] [place] CBC W Auto Differential pane l (Bld)on 07-23-2021 Basophils (Bld) [#/Vol] 0.07 10*3/uL Normal <0.11 [facility] Comment on above: Order Comment: Speci men Type: BLOOD SPECIMENOrdering Facility: [facility] Address: [address] [place] [address] Performed By: #### 5 7021-8 ####[facility]ORYCLIA [id number] [address] [place] Basophils/100 WBC (Bld) 0.5 % Normal [facility] Comment on above: Order Comment: Speci men Type: BLOOD SPECIMENOrdering Facility: [facility] Address: [address] [place] [address] Performed By: #### 5 7021-8 ####[facility]ATORYCLIA [id number] [address] [place] Differential cell count method Nom (Bld) Auto Normal [facility] Comment on above: Order Comment: Speci men Type: BLOOD SPECIMENOrdering Facility: [facility] [facility] Address: [address] [place] [address] Performed By: #### 5 7021-8 ####[facility]ORATORYCLIA [id number] [address] [place] Eosinophils (Bld) [#/Vol] 10*3/uL Normal <0.46 [facility] Comment on above: Order Comment: Speci men Type: BLOOD SPECIMENOrdering Facility: [facility] Address: [address] [place] [address] Performed By: #### 5 7021-8 ####[facility]ORATORYCLIA [id number] [address] [place] Eosinophils/100 WBC (Bld) 0.2 % Normal [facility] Comment on above: Order Comment: Speci men Type: BLOOD SPECIMENOrdering Facility: [facility] Address: [address] [place] [address] Performed By: #### 5 7021-8 ####[facility]ORATORYCLIA [id number] [address] Erythrocyte distribution width (RBC) [Ratio] 16.7 % High 11.5-15.0 [facility] Comment on above: Order Comment: Speci men Type: BLOOD SPECIMENOrdering Facility: [facility] Address: [address] [place] [address] Performed By: #### 5 7021-8 ####[facility] LABORATORYCLIA [id number] [address] Hematocrit (Bld) [Volume fraction] 32.8 % Low 39.0-51.0 [facility] Comment on above: Order Comment: Speci men Type: BLOOD SPECIMENOrdering Facility: [facility] Address: [address] [place] [address] Performed By: #### 5 7021-8 ####[facility] LABORATORYCLIA [id number] [address] Hemoglobin (Bld) [Mass/Vol] 9.7 g/dL Low 13.0-17.0 [facility] Comment on above: Order Comment: Speci men Type: BLOOD SPECIMENOrdering Facility: [facility] Address: [address] [place] [address] Performed By: #### 5 7021-8 ####[facility]ORATORYCLIA [id number] [address] IMMATURE GRAN % 0.7 % Normal [facility] Comment on above: Order Comment: Speci men Type: BLOOD SPECIMENOrdering Facility: [facility] Address: [address] [place] [address] Performed By: #### 5 7021-8 ####[facility] LABORATORYCLIA [id number] [address] IMMATURE GRAN ABS 0.09 k/uL Normal <0.10 [facility] Comment on above: Order Comment: Speci men Type: BLOOD SPECIMENOrdering Facility: [facility] Address: [address] [place] [address] Performed By: #### 5 7021-8 ####[facility] LABORATORYCLIA [id number] [address] Lymphocytes (Bld) [#/Vol] 1.94 10*3/uL Normal 1.00-4.00 [facility] Comment on above: Order Comment: Speci men Type: BLOOD SPECIMENOrdering Facility: [facility] Address: [address] [place] [address] Performed By: #### 5 7021-8 ####[facility] LABORATORYCLIA [id number] [address] Lymphocytes/100 WBC (Bld) 14.6 % Normal [facility] Comment on above: Order Comment: Speci men Type: BLOOD SPECIMENOrdering Facility: [facility] Address: [address] [place] [address] Performed By: #### 5 7021-8 ####[facility]ORATORYCLIA [id number] [address] MCH (RBC) [Entitic mass] 27.2 pg Normal 26.0-34.0 [facility] Comment on above: Order Comment: Speci men Type: BLOOD SPECIMENOrdering Facility: [facility] Address: [address] [place] [address] Performed By: #### 5 7021-8 ####[facility]ORATORYCLIA [id number] [address] MCHC (RBC) [Mass/Vol] 29.6 g/dL Low 30.5-36.0 [facility] Comment on above: Order Comment: Speci men Type: BLOOD SPECIMENOrdering Facility: [facility] Address: [address] [place] [address] Performed By: #### 5 7021-8 ####[facility]ORATORYCLIA [id number] [address] OF [facility] MCV (RBC) [Entitic vol] 92.1 fL Normal 80.0-100.0 [facility] Comment on above: Order Comment: Speci men Type: BLOOD SPECIMENOrdering Facility: [facility] Address: [address] [place] [address] Performed By: #### 5 7021-8 ####[facility]ORATORYCLIA [id number] [address] [place] Monocytes (Bld) [#/Vol] 0.74 10*3/uL Normal <0.87 [facility] Comment on above: Order Comment: Speci men Type: BLOOD SPECIMENOrdering Facility: [facility] Address: [address] [place] [address] Performed By: #### 5 7021-8 ####[facility]ORATORYCLIA [id number] [address] Monocytes/100 WBC (Bld) 5.6 % Normal [facility] Comment on above: Order Comment: Speci men Type: BLOOD SPECIMENOrdering Facility: [facility] Address: [address] [place] [address] Performed By: #### 5 7021-8 ####[facility]ORATORYCLIA [id number] [address] [place] Neutrophils (Bld) [#/Vol] 10.43 10*3/uL High 1.45-7.50 [facility] Comment on above: Order Comment: Speci men Type: BLOOD SPECIMENOrdering Facility: [facility] Address: [address] [place] [address] Performed By: #### 5 7021-8 ####[facility]ORATORYCLIA [id number] [address] [place] Neutrophils/100 WBC (Bld) 78.4 % Normal [facility] Comment on above: Order Comment: Speci men Type: BLOOD SPECIMENOrdering Facility: [facility] Address: [address] [place] [address] Performed By: #### 5 7021-8 ####[facility]ORATORYCLIA [id number] [place] [address] [place] Nucleated RBC (Bld) [#/Vol] 10*3/uL Normal <0.01 [facility] Comment on above: Order Comment: Speci men Type: BLOOD SPECIMENOrdering Facility: [facility] Address: [address] [place] [address] Performed By: #### 5 7021-8 ####[facility]ORATORYCLIA [id number] [address] [place] Nucleated RBC/100 WBC (Bld) [Ratio] 0.0 /100 WBC Normal [facility] Comment on above: Order Comment: Speci men Type: BLOOD SPECIMENOrdering Facility: [facility] Address: [address] [place] [address] Performed By: #### 5 7021-8 ####[facility]ORATORYCLIA [id number] [address] [place] Platelet mean volume (Bld) [Entitic vol] 11.0 fL Normal 9.0-12.7 [facility] Comment on above: Order Comment: Speci men Type: BLOOD SPECIMENOrdering Facility: [facility] Address: [address] [place] [address] Performed By: #### 5 7021-8 ####[facility]ORATORYCLIA [id number] [address] [place] Platelets (Bld) [#/Vol] 381 10*3/uL Normal 150-400 [facility] Comment on above: Order Comment: Speci men Type: BLOOD SPECIMENOrdering Facility: [facility] Address: [address] [place] [address] Performed By: #### 5 7021-8 ####[facility]ORATORYCLIA [id number] [address] [place] RBC (Bld) [#/Vol] 3.56 10*6/uL Low 4.20-6.00 [facility] Comment on above: Order Comment: Speci men Type: BLOOD SPECIMENOrdering Facility: [facility] Address: [address] [place] [address] Performed By: #### 5 7021-8 ####[facility]ORATORYCLIA [id number] [place] [address] [place] [facility] [place] WBC (Bld) [#/Vol] 13.29 10*3/uL High 3.70-11.00 [facility] Comment on above: Order Comment: Speci men Type: BLOOD SPECIMENOrdering Facility: [facility] Address: [address] [place] [address] Performed By: #### 5 7021-8 ####[facility]ORATORYCLIA [id number] [address] [place] CONSULT PROGon 07-23-2021 CONSULT PROG Normal [facility] CONSULT PROG Normal [facility] CSF MANUAL DIFFon 07-23-2021 DIF TTL, CSF 100 cells counted Normal [facility] Comment on above: Order Comment: Speci men Type: CEREBROSPINAL FLUIDOrdering Facility: [facility] Address: [address] [place] [address] Performed By: #### L [id number], [id number], 26065-5 ####[facility]ORATORYCLIA [id number] [place] [address] [place] LYMPH%, CSF 2 % Low 50-90 [facility] Comment on above: Order Comment: Speci men Type: CEREBROSPINAL FLUIDOrdering Facility: [facility] Address: [address] [place] [address] Performed By: #### L [id number], [id number], 83510-5 ####[facility]ORATORYCLIA [id number] [address] [place] MONO%, CSF 9 % Low 10-50 [facility] Comment on above: Order Comment: Speci men Type: CEREBROSPINAL FLUIDOrdering Facility: [facility] Address: [address] [place] [address] Performed By: #### L [id number], ZFG6122, 53366-3 ####[facility]ATORYCLIA [id number] [place] [address] [place] NEUT%, CSF 89 % High 0-3 [facility] Comment on above: Order Comment: Speci men Type: CEREBROSPINAL FLUIDOrdering Facility: [facility] Address: [address] [place] [address] Performed By: #### L [id number], HLP2637, 91338-1 ####[facility]ORATORYCLIA [id number] [address] [place] CSF PATHOLOGIST INTERP (LAB REFLEX ORDER-NO BILL)on 07-23-2021 CSF STAFF REVIEW Negative for maligna nt cells. Numerous bacterial organisms present, cocci in pairs and chains. Recommend correlation with CSF culture results. Normal [facility] Comment on above: Order Comment: Speci men Type: CEREBROSPINAL FLUIDOrdering Facility: [facility] Address: [address] [place] [address] Performed By: #### L VR0065, TUX0797, 18179-9 ####[facility]ORATORYCLIA [id number] [address] Pathologist name Reviewed by Amador Stevens MD Normal [facility] Comment on above: Order Comment: Speci men Type: CEREBROSPINAL FLUIDOrdering Facility: [facility] Address: [address] [place] [address] Performed By: #### L [id number], HAH6026, 98269-4 ####[facility]ORATORYCLIA [id number] [place] [address] [place] [address] BRAIN WO IVCONon 07-24-[address] BRAIN WO IVCON Normal [facility] Cell count panel (CSF)on Clarity (CSF) Clear Normal Clear [facility] Comment on above: Order Comment: Speci men Type: CEREBROSPINAL FLUIDOrdering Facility: [facility] Address: [address] [place] [address] Performed By: #### L [id number], EMN3865, 14836-5 ####[facility]ORATORYCLIA [id number] [address] [place] Clarity (Unsp spec) Not Indicated Normal Clear [facility] Comment on above: Order Comment: Speci men Type: CEREBROSPINAL FLUIDOrdering Facility: [facility] Address: [address] [place] [address] Performed By: #### L [id number], IJS8125, 31625-7 ####[facility]ORATORYCLIA [id number] [address] Color (CSF) Colorless Normal Colorless [facility] Comment on above: Order Comment: Speci men Type: CEREBROSPINAL FLUIDOrdering Facility: [facility] Address: [address] [place] [address] Performed By: #### L [id number], MUK5135, 68976-9 ####[facility]ATORYCLIA [id number] [address] Color (Spun CSF) Not Indicated Normal Colorless [facility] Comment on above: Order Comment: Speci men Type: CEREBROSPINAL FLUIDOrdering Facility: [facility] Address: [address] [place] [address] Performed By: #### L [id number], PPH7190, 37324-4 ####[facility]ORATORYCLIA [id number] [address] CSF TUBE NUMBER [employer] Normal [facility] Comment on above: Order Comment: Speci men Type: CEREBROSPINAL FLUIDOrdering Facility: [facility] Address: [address] [place], [place] [address] Performed By: #### L [id number], NCB8041, 54952-2 ####[facility]ORATORYCLIA [id number] [address] RBC Manual cnt (CSF) [#/Vol] 7 cells/uL High 0-5 [facility] Comment on above: Order Comment: Speci men Type: CEREBROSPINAL FLUIDOrdering Facility: [facility] Address: [address] [place] [address] Performed By: #### L [id number], [id number], 13354-5 ####[facility]ORATORYCLIA [id number] [place] [address] [place] WBC Manual cnt (CSF) [#/Vol] 193 cells/uL High 0-5 [facility] Comment on above: Order Comment: Speci men Type: CEREBROSPINAL FLUIDOrdering Facility: [facility] Address: [address] [place] [address] Performed By: #### L [id number], VVL4195, 25916-6 ####[facility]ORATORYCLIA [id number] [place] [id number] [facility] [place] Glucose CSF-[facility] 2 Glucose (CSF) [Mass/Vol] 81 mg/dL High 40-70 [facility] Comment on above: Order Comment: Speci men Type: CEREBROSPINAL FLUIDOrdering Facility: [facility] Address: [address] [place] [address] Result Comment: Lumb ar CSF glucose values of healthy patients are approximately 60% of the plasma values and must always be compared with a concurrently measured plasma value for adequate clinical interpretation.References: 1. Glucose HK (GLUC3) [package insert V 12.0 Citizen [place]]. [employer], [place], [place]. September 2015. 2. Michelle Moore, Loki, H. (2015). Chapter 7: Glucose and Lactate. FGarfield Rothman.(eds.), Cerebrospinal Fluid in Clinical Neurology. [place]: [employer]. Performed By: #### 2 342-4, 2880-3 ####[facility]ORATORYCLIA [id number] [place] [id number] [place] NURSING PROGon 07-23-2021 NURSING PROG Normal [facility] NURSING PROG Normal [facility] Prot CSF-ncon 07-23-2021 Protein (CSF) [Mass/Vol] 68 mg/dL High 15-45 [facility] Comment on above: Order Comment: Speci men Type: CEREBROSPINAL FLUIDOrdering Facility: [facility] Address: [address] [place] [address] Performed By: #### 2 342-4, 2880-3 ####[facility]ORATORYCLIA [id number] [address] Urinalysis complete panel (U )on 07-23-2021 Bilirubin Ql (U) Negative Normal Negative [facility] Comment on above: Order Comment: Speci men Type: URINE SPECIMENOrdering Facility: [facility] Address: [facility] [place] [address] Performed By: #### 2 4356-8 ####[facility]ORATORYCLIA [id number] [address] Clarity (Unsp spec) Clear Normal Clear [facility] Comment on above: Order Comment: Speci men Type: URINE SPECIMENOrdering Facility: [facility] Address: [address] [place] [address] Performed By: #### 2 4356-8 ####[facility]ATORYCLIA [id number] [address] Color (U) Light Yellow Normal yellow [facility] Comment on above: Order Comment: Speci men Type: URINE SPECIMENOrdering Facility: [facility] Address: [address] [place] [address] Performed By: #### 2 4356-8 ####[facility]ATORYCLIA [id number] [address] Glucose Test strip (U) [Mass/Vol] Negative Normal Negative [facility] Comment on above: Order Comment: Speci men Type: URINE SPECIMENOrdering Facility: [facility] Address: [address] [place] [address] Performed By: #### 2 4356-8 ####[facility]ORATORYCLIA [id number] [address] Hemoglobin Ql (U) Negative Normal Negative [facility] Comment on above: Order Comment: Speci men Type: URINE SPECIMENOrdering Facility: [facility] Address: [address] [place] [address] Performed By: #### 2 4356-8 ####[facility]ATORYCLIA [id number] [address] Ketones Ql (U) Negative Normal Negative [facility] Comment on above: Order Comment: Speci men Type: URINE SPECIMENOrdering Facility: [facility] Address: [address] [place] [address] Performed By: #### 2 4356-8 ####[facility]ATORYCLIA [id number] [address] Leukocyte esterase Test strip Ql (U) Negative Normal Negative [facility] Comment on above: Order Comment: Speci men Type: URINE SPECIMENOrdering Facility: [facility] Address: [address] [place] [address] Performed By: #### 2 4356-8 ####[facility]ATORYCLIA [id number] [address] [place] [facility] Nitrite Ql (U) Negative Normal Negative [facility] Comment on above: Order Comment: Speci men Type: URINE SPECIMENOrdering Facility: [facility] Address: [address] [place] [address] Performed By: #### 2 4356-8 ####[facility]ATORYCLIA [id number] [address] [place] pH (U) 6.0 [pH] Normal 5.0-8.0 [facility] Comment on above: Order Comment: Speci men Type: URINE SPECIMENOrdering Facility: [facility] Address: [address] [place] [address] Performed By: #### 2 4356-8 ####[facility]ATORYCLIA [id number] [address] Protein (U) [Mass/Vol] 1+ Abnormal Negative [facility] Comment on above: Order Comment: Speci men Type: URINE SPECIMENOrdering Facility: [facility] Address: [address] [place] [address] Performed By: #### 2 4356-8 ####[facility]ATORYCLIA [id number] [address] RBC LM.HPF (Urine sed) [#/Area] 0-3 /HPF Normal 0-3 /HPF [facility] Comment on above: Order Comment: Speci men Type: URINE SPECIMENOrdering Facility: [facility] Address: [address] [place] [address] Performed By: #### 2 4356-8 ####[facility]ATORYCLIA [id number] [address] Specific gravity (U) [Rel density] 1.018 Normal 1.005-1.030 [facility] Comment on above: Order Comment: Speci men Type: URINE SPECIMENOrdering Facility: [facility] Address: [address] [place] [address] Performed By: #### 2 4356-8 ####[facility]ATORYCLIA [id number] [address] Urobilinogen Ql (U) Normal Normal Negative [facility] Comment on above: Order Comment: Speci men Type: URINE SPECIMENOrdering Facility: [facility] Address: [address] [place] [address] Performed By: #### 2 4356-8 ####[facility]ATORYCLIA [id number] [address] [place] WBC LM.HPF (Urine sed) [#/Area] 0-5 /HPF Normal 0-5 /HPF [facility] Comment on above: Order Comment: Speci men Type: URINE SPECIMENOrdering Facility: [facility] Address: [address] [place] [address] Performed By: #### 2 4356-8 ####[facility]ORATORYCLIA [id number] [address] Vancomycin random [Mass/Vol] on 07-23-2021 Vancomycin [Mass/Vol] 12.9 ug/mL Normal 10.0-20.0 [facility] Comment on above: Order Comment: Speci men Type: BLOOD SPECIMENOrdering Facility: [facility] Address: [address] [place] [address] Result Comment: Refe rence ranges and high/low indicator flags are provided as general guidelines only. The treating physician must determine appropriate target levels/dosing based on the specific clinical situation. Performed By: #### 4 091-5 ####[facility]ORATORYCLIA [id number] [address] OF [facility] XR CHEST 1V FRONTALon 2021 XR CHEST 1V FRONTAL Normal [facility] XR CHEST 1V FRONTAL Normal [facility] aPTT PPPon 07-23-2021 aPTT Coag (PPP) [Time] 32.3 s Normal 23.0-32.[address] [facility] Comment on above: Order Comment: Speci men Type: BLOOD SPECIMENOrdering Facility: [facility] Address: [address] [place] [address] Performed By: #### 1 4979-9 ####[facility]ORATORYCLIA [id number] [address] aPTT Coag (PPP) [Time] 57.9 s High 23.0-32.[address] [facility] Comment on above: Order Comment: Speci men Type: BLOOD SPECIMENOrdering Facility: [facility] Address: [address] [place] [address] Performed By: #### 1 4979-9 ####[facility]ORATORYCLIA [id number] [address] aPTT Coag (PPP) [Time] 46.3 s High 23.0-32.[address] [facility] Comment on above: Order Comment: Speci men Type: BLOOD SPECIMENOrdering Facility: [facility] Address: [address] [place] [address] Performed By: #### 1 4979-9 ####[facility]ORATORYCLIA [id number] [address] [place] Basic metabolic 2000 panelon 07-22-2021 Anion gap [Moles/Vol] 8 mmol/L Low 9-18 [facility] Comment on above: Order Comment: Speci men Type: BLOOD SPECIMENOrdering Facility: [facility] Address: [address] [place] [address] Performed By: #### 2 4321-2 ####[facility] LABORATORYCLIA [id number] [place] [address] [place] Calcium [Mass/Vol] 9.5 mg/dL Normal 8.5-10.2 [facility] Comment on above: Order Comment: Speci men Type: BLOOD SPECIMENOrdering Facility: [facility] Address: [address] [place] [address] Performed By: #### 2 4321-2 ####[facility]ORATORYCLIA [id number] [place] [address] [place] Chloride [Moles/Vol] 105 mmol/L Normal 97-105 [facility] Comment on above: Order Comment: Speci men Type: BLOOD SPECIMENOrdering Facility: [facility] Address: [address] [place] [address] Performed By: #### 2 4321-2 ####[facility]ORATORYCLIA [id number] [place] [address] [place] CO2 [Moles/Vol] 32 mmol/L High 22-30 [facility] Comment on above: Order Comment: Speci men Type: BLOOD SPECIMENOrdering Facility: [facility] Address: [address] [place] [address] Performed By: #### 2 4321-2 ####[facility] LABORATORYCLIA [id number] [place] [address] [place] Creatinine [Mass/Vol] 0.75 mg/dL Normal 0.73-1.22 [facility] Comment on above: Order Comment: Speci men Type: BLOOD SPECIMENOrdering Facility: [facility] Address: [address] [place] [address] Performed By: #### 2 4321-2 ####[facility]ORATORYCLIA [id number] [place] [address] [place] ESTIMATED GLOMERULAR FILTRATION RATE 98 mL/min/1.73m??? Normal >=60 [facility] Comment on above: Order Comment: Shira feldman Type: BLOOD SPECIMENOrdering Facility: [facility] Address: [address] [place] [address] Result Comment: Luzmaria mated Glomerular Filtration Rate [...] actual GFR. Performed By: #### 2 4321-2 ####[facility] LABORATORYCLIA [id number] [place] [address] [place] Glucose [Mass/Vol] 128 mg/dL High 74-99 [facility] Comment on above: Order Comment: Shira feldman Type: BLOOD SPECIMENOrdering Facility: [facility] Address: [address] [place] [address] Result Comment: The [place] [employer] (ADA) provides guidance for cutoff [...] Standards of Medical Care in Diabetes 2016, [place] [employer]. Diabetes Care. 2016.39(Suppl 1). Performed By: #### 2 4321-2 ####[facility] LABORATORYCLIA [id number] [place] [address] [place] Potassium [Moles/Vol] 3.7 mmol/L Normal 3.7-5.1 [facility] Comment on above: Order Comment: Speci men Type: BLOOD SPECIMENOrdering Facility: [facility] Address: [address] [place] [address] Performed By: #### 2 4321-2 ####[facility] LABORATORYCLIA [id number] [address] [place] Sodium [Moles/Vol] 145 mmol/L High 136-144 [facility] Comment on above: Order Comment: Speci men Type: BLOOD SPECIMENOrdering Facility: [facility] Address: [address] [place] [address] Performed By: #### 2 4321-2 ####[facility] LABORATORYCLIA [id number] [place] [address] [place] Urea nitrogen [Mass/Vol] 39 mg/dL High 9-24 [facility] Comment on above: Order Comment: Speci men Type: BLOOD SPECIMENOrdering Facility: [facility] Address: [address] [place] [address] Performed By: #### 2 4321-2 ####[facility] LABORATORYCLIA [id number] [address] [place] CASE MANAGEMon 07-22-2021 CASE MANAGEM Normal [facility] CBC W Auto Differential pane l (Bld)on 07-22-2021 Basophils (Bld) [#/Vol] 0.06 10*3/uL Normal <0.11 [facility] Comment on above: Order Comment: Speci men Type: BLOOD SPECIMENOrdering Facility: [facility] Address: [address] [place] [address] Performed By: #### 5 7021-8 ####[facility] LABORATORYCLIA [id number] [address] [place] Basophils/100 WBC (Bld) 0.5 % Normal [facility] Comment on above: Order Comment: Speci men Type: BLOOD SPECIMENOrdering Facility: [facility] Address: [address] [place] [address] Performed By: #### 5 7021-8 ####[facility] LABORATORYCLIA [id number] [address] Differential cell count method Nom (Bld) Auto Normal [facility] Comment on above: Order Comment: Speci men Type: BLOOD SPECIMENOrdering Facility: [facility] Address: [address] [place] [address] Performed By: #### 5 7021-8 ####[facility] LABORATORYCLIA [id number] [address] [place] Eosinophils (Bld) [#/Vol] 0.44 10*3/uL Normal <0.46 [facility] Comment on above: Order Comment: Speci men Type: BLOOD SPECIMENOrdering Facility: [facility] Address: [address] [place] [address] Performed By: #### 5 7021-8 ####[facility] LABORATORYCLIA [id number] [address] Eosinophils/100 WBC (Bld) 3.9 % Normal [facility] Comment on above: Order Comment: Speci men Type: BLOOD SPECIMENOrdering Facility: [facility] Address: [address] [place] [address] Performed By: #### 5 7021-8 ####[facility]ORATORYCLIA [id number] [address] Erythrocyte distribution width (RBC) [Ratio] 17.0 % High 11.5-15.0 [facility] Comment on above: Order Comment: Speci men Type: BLOOD SPECIMENOrdering Facility: [facility] Address: [address] [place] [address] Performed By: #### 5 7021-8 ####[facility] LABORATORYCLIA [id number] [address] Hematocrit (Bld) [Volume fraction] 32.0 % Low 39.0-51.0 [facility] Comment on above: Order Comment: Speci men Type: BLOOD SPECIMENOrdering Facility: [facility] Address: [address] [place] [address] Performed By: #### 5 7021-8 ####[facility] LABORATORYCLIA [id number] [address] [place] Hemoglobin (Bld) [Mass/Vol] 9.3 g/dL Low 13.0-17.0 [facility] Comment on above: Order Comment: Speci men Type: BLOOD SPECIMENOrdering Facility: [facility] Address: [address] [place] [address] Performed By: #### 5 7021-8 ####[facility] LABORATORYCLIA [id number] [address] IMMATURE GRAN % 0.5 % Normal [facility] Comment on above: Order Comment: Speci men Type: BLOOD SPECIMENOrdering Facility: [facility] Address: [address] [place] [address] Performed By: #### 5 7021-8 ####[facility] LABORATORYCLIA [id number] [address] IMMATURE GRAN ABS 0.06 k/uL Normal <0.10 [facility] Comment on above: Order Comment: Speci men Type: BLOOD SPECIMENOrdering Facility: [facility] Address: [address] [place] [address] Performed By: #### 5 7021-8 ####[facility] LABORATORYCLIA [id number] [address] [place] Lymphocytes (Bld) [#/Vol] 1.83 10*3/uL Normal 1.00-4.00 [facility] Comment on above: Order Comment: Speci men Type: BLOOD SPECIMENOrdering Facility: [facility] Address: [address] [place] [address] Performed By: #### 5 7021-8 ####[facility]ORATORYCLIA [id number] [address] Lymphocytes/100 WBC (Bld) 16.1 % Normal [facility] Comment on above: Order Comment: Speci men Type: BLOOD SPECIMENOrdering Facility: [facility] Address: [address] [place] [address] Performed By: #### 5 7021-8 ####[facility] LABORATORYCLIA [id number] [address] MCH (RBC) [Entitic mass] 27.0 pg Normal 26.0-34.0 [facility] Comment on above: Order Comment: Speci men Type: BLOOD SPECIMENOrdering Facility: [facility] Address: [address] [place] [address] Performed By: #### 5 7021-8 ####[facility] LABORATORYCLIA [id number] [address] MCHC (RBC) [Mass/Vol] 29.1 g/dL Low 30.5-36.0 [facility] Comment on above: Order Comment: Speci men Type: BLOOD SPECIMENOrdering Facility: [facility] Address: [address] [place] [address] Performed By: #### 5 7021-8 ####[facility]ORATORYCLIA [id number] [address] MCV (RBC) [Entitic vol] 92.8 fL Normal 80.0-100.0 [facility] Comment on above: Order Comment: Speci men Type: BLOOD SPECIMENOrdering Facility: [facility] Address: [address] [place] [address] Performed By: #### 5 7021-8 ####[facility]ORATORYCLIA [id number] [address] Monocytes (Bld) [#/Vol] 0.87 10*3/uL High <0.87 [facility] Comment on above: Order Comment: Speci men Type: BLOOD SPECIMENOrdering Facility: [facility] Address: [address] [place] [address] Performed By: #### 5 7021-8 ####[facility] LABORATORYCLIA [id number] [address] Monocytes/100 WBC (Bld) 7.6 % Normal [facility] Comment on above: Order Comment: Speci men Type: BLOOD SPECIMENOrdering Facility: [facility] Address: [address] [place] [address] Performed By: #### 5 7021-8 ####[facility]ORATORYCLIA [id number] [address] [place] Neutrophils (Bld) [#/Vol] 8.12 10*3/uL High 1.45-7.50 [facility] Comment on above: Order Comment: Speci men Type: BLOOD SPECIMENOrdering Facility: [facility] Address: [address] [place] [address] Performed By: #### 5 7021-8 ####[facility]ORATORYCLIA [id number] [address] Neutrophils/100 WBC (Bld) 71.4 % Normal [facility] Comment on above: Order Comment: Speci men Type: BLOOD SPECIMENOrdering Facility: [facility] Address: [address] [place] [address] Performed By: #### 5 7021-8 ####[facility]ORATORYCLIA [id number] [address] [place] Nucleated RBC (Bld) [#/Vol] 10*3/uL Normal <0.01 [facility] Comment on above: Order Comment: Speci men Type: BLOOD SPECIMENOrdering Facility: [facility] Address: [address] [place] [address] Performed By: #### 5 7021-8 ####[facility] LABORATORYCLIA [id number] [address] Nucleated RBC/100 WBC (Bld) [Ratio] 0.0 /100 WBC Normal [facility] Comment on above: Order Comment: Speci men Type: BLOOD SPECIMENOrdering Facility: [facility] Address: [address] [place] [address] Performed By: #### 5 7021-8 ####[facility] LABORATORYCLIA [id number] [address] [place] Platelet mean volume (Bld) [Entitic vol] 10.8 fL Normal 9.0-12.7 [facility] Comment on above: Order Comment: Speci men Type: BLOOD SPECIMENOrdering Facility: [facility] Address: [address] [place] [address] Performed By: #### 5 7021-8 ####[facility]ORATORYCLIA [id number] [address] [place] Platelets (Bld) [#/Vol] 362 10*3/uL Normal 150-400 [facility] Comment on above: Order Comment: Speci men Type: BLOOD SPECIMENOrdering Facility: [facility] Address: [address] [place] [address] Performed By: #### 5 7021-8 ####[facility]ORATORYCLIA [id number] [place] [address] [place] [facility] RBC (Bld) [#/Vol] 3.45 10*6/uL Low 4.20-6.00 [facility] Comment on above: Order Comment: Speci men Type: BLOOD SPECIMENOrdering Facility: [facility] Address: [address] [place] [address] Performed By: #### 5 7021-8 ####[facility]ORATORYCLIA [id number] [address] [place] WBC (Bld) [#/Vol] 11.38 10*3/uL High 3.70-11.00 [facility] Comment on above: Order Comment: Speci men Type: BLOOD SPECIMENOrdering Facility: [facility] Address: [address] [place] [address] Performed By: #### 5 7021-8 ####[facility] LABORATORYCLIA [id number] [address] [place] Magnesium SerPl-mCncon 07-22 Magnesium [Mass/Vol] 2.3 mg/dL Normal 1.7-2.3 [facility] Comment on above: Order Comment: Speci men Type: BLOOD SPECIMENOrdering Facility: [facility] Address: [address] [place] [address] Performed By: #### 1 9123-9, 2777-1, 63346-6 ####[facility]ORATORYCLIA [id number] [address] NT-proBNP SerPl-ncon 07-22 Natriuretic peptide.B prohormone N-Terminal [Mass/Vol] 328 pg/mL High <125 [facility] Comment on above: Order Comment: Speci men Type: BLOOD SPECIMENOrdering Facility: [facility] Address: [address] [place] [address] Performed By: #### 1 9123-9, 2777-1, 10077-3 ####[facility] LABORATORYCLIA [id number] [address] [place] NURSING PROGon 07-22-2021 NURSING PROG Normal [facility] NUTRITIONon 07-22-2021 NUTRITION Normal [facility] Phosphate SerPl[facility] Phosphate [Mass/Vol] 3.5 mg/dL Normal 2.7-4.8 [facility] Comment on above: Order Comment: Speci men Type: BLOOD SPECIMENOrdering Facility: [facility] Address: [address] [place] [address] Performed By: #### 1 9123-9, 2777-1, 45273-1 ####[facility]ORATORYCLIA [id number] [address] [place] THERAPY NTon 07-22-2021 THERAPY NT Normal [facility] THERAPY NT Normal [facility] aPTT PPPon 07-22-2021 aPTT Coag (PPP) [Time] 50.1 s High 23.0-32.[address] [facility] Comment on above: Order Comment: Speci men Type: BLOOD SPECIMENOrdering Facility: [facility] Address: [address] [place], [place] [id number] Performed By: #### 1 4979-9 ####[facility] LABORATORYCLIA [id number] [place] [address] [place] ALLIED HEALTHon 07-21-2021 ALLIED HEALTH Normal [facility] Bacteria Spec Resp Culton Bacteria identified Respiratory culture Nom (Unsp spec) Abnormal [facility] Comment on above: Performed By: #### 3 2355-0 ####[facility]ORATORYCLIA [id number] [address] [place] Basic metabolic 2000 panelon 07-21-2021 Anion gap [Moles/Vol] 9 mmol/L Normal 9-18 [facility] Comment on above: Order Comment: Speci men Type: BLOOD SPECIMENOrdering Facility: [facility] Address: [address] [place] [address] Performed By: #### 1 9123-9, 2777, 55162-7 ####[facility]ORATORYCLIA [id number] [place] [address] [place] Calcium [Mass/Vol] 9.9 mg/dL Normal 8.5-10.2 [facility] Comment on above: Order Comment: Speci men Type: BLOOD SPECIMENOrdering Facility: [facility] Address: [address] [place] [address] Performed By: #### 1 9123-9, 2777, 57947-5 ####[facility]ORATORYCLIA [id number] [place] [address] [place] Chloride [Moles/Vol] 103 mmol/L Normal 97-105 [facility] Comment on above: Order Comment: Speci men Type: BLOOD SPECIMENOrdering Facility: [facility] Address: [address] [place] [address] Performed By: #### 1 9123-9, 2777-, 70956-1 ####[facility] LABORATORYCLIA [id number] [place] [id number] [place] CO2 [Moles/Vol] 33 mmol/L High 22-30 [facility] Comment on above: Order Comment: Speci men Type: BLOOD SPECIMENOrdering Facility: [facility] Address: [address] [place] [address] Performed By: #### 1 9123-9, 2777-, 33326-1 ####[facility] LABORATORYCLIA [id number] [address] [place] Creatinine [Mass/Vol] 0.80 mg/dL Normal 0.73-1.22 [facility] Comment on above: Order Comment: Speci men Type: BLOOD SPECIMENOrdering Facility: [facility] Address: [address] [place] [address] Performed By: #### 1 9123-9, 27711-04, 13669-9 ####[facility]PITALIA [id number] [address] [place] OF [facility] ESTIMATED GLOMERULAR FILTRATION RATE 96 mL/min/1.73m??? Normal >=60 [facility] Comment on above: Order Comment: Speci men Type: BLOOD SPECIMENOrdering Facility: [facility] Address: [address] [place] [address] Result Comment: Luzmaria mated Glomerular Filtration Rate [...] GFR. Performed By: #### 1 9123-9, 2777, 13702-6 ####[facility]ORATORYCLIA [id number] [place] [address] [place] Glucose [Mass/Vol] 148 mg/dL High 74-99 [facility] Comment on above: Order Comment: Speci men Type: BLOOD SPECIMENOrdering Facility: [facility] Address: [address] [place] [address] Result Comment: The [place] [employer] (ADA) provides guidance for cutoff [...] Standards of Medical Care in Diabetes 2016, [place] [employer]. Diabetes Care. 2016.39(Suppl 1). Performed By: #### 1 9123-9, 2777-, 10380-5 ####[facility]ORATORYCLIA [id number] [place] [address] [place] Potassium [Moles/Vol] 4.1 mmol/L Normal 3.7-5.1 [facility] Comment on above: Order Comment: Speci men Type: BLOOD SPECIMENOrdering Facility: [facility] Address: [address] [place] [address] Performed By: #### 1 9123-9, 2777, 83186-3 ####[facility]ORATORYCLIA [id number] [place] [address] [place] Sodium [Moles/Vol] 145 mmol/L High 136-144 [facility] Comment on above: Order Comment: Speci men Type: BLOOD SPECIMENOrdering Facility: [facility] Address: [address] [place] [place] [address] Performed By: #### 1 9123-9, 2777, 51121-3 ####[facility]ORATORYCLIA [id number] [place] [address] [place] Urea nitrogen [Mass/Vol] 40 mg/dL High 9-24 [facility] Comment on above: Order Comment: Speci men Type: BLOOD SPECIMENOrdering Facility: [facility] Address: [address] [place] [address] Performed By: #### 1 9123-9, 2777-1, 31894-8 ####[facility]ORATORYCLIA [id number] [place] [address] [place] CBC W Auto Differential pane l (Bld)on 07-21-2021 Basophils (Bld) [#/Vol] 0.06 10*3/uL Normal <0.11 [facility] Comment on above: Order Comment: Speci men Type: BLOOD SPECIMENOrdering Facility: [facility] Address: [address] [place] [address] Performed By: #### 5 7021-8 ####[facility]ORATORYCLIA [id number] [address] [place] Basophils/100 WBC (Bld) 0.4 % Normal [facility] Comment on above: Order Comment: Speci men Type: BLOOD SPECIMENOrdering Facility: [facility] Address: [address] [place] [address] Performed By: #### 5 7021-8 ####[facility] LABORATORYCLIA [id number] [address] STATES OF [facility] Differential cell count method Nom (Bld) Auto Normal [facility] Comment on above: Order Comment: Speci men Type: BLOOD SPECIMENOrdering Facility: [facility] Address: [address] [place] [address] Performed By: #### 5 7021-8 ####[facility]ORATORYCLIA [id number] [place] [address] [place] Eosinophils (Bld) [#/Vol] 0.04 10*3/uL Normal <0.46 [facility] Comment on above: Order Comment: Speci men Type: BLOOD SPECIMENOrdering Facility: [facility] Address: [address] [place] [address] Performed By: #### 5 7021-8 ####[facility]ORATORYCLIA [id number] [address] [place] Eosinophils/100 WBC (Bld) 0.3 % Normal [facility] Comment on above: Order Comment: Speci men Type: BLOOD SPECIMENOrdering Facility: [facility] Address: [address] [place] [address] Performed By: #### 5 7021-8 ####[facility] LABORATORYCLIA [id number] [address] Erythrocyte distribution width (RBC) [Ratio] 17.0 % High 11.5-15.0 [facility] Comment on above: Order Comment: Speci men Type: BLOOD SPECIMENOrdering Facility: [facility] Address: [address] [place] [address] Performed By: #### 5 7021-8 ####[facility] LABORATORYCLIA [id number] [address] Hematocrit (Bld) [Volume fraction] 33.1 % Low 39.0-51.0 [facility] Comment on above: Order Comment: Speci men Type: BLOOD SPECIMENOrdering Facility: [facility] Address: [address] [place] [address] Performed By: #### 5 7021-8 ####[facility] LABORATORYCLIA [id number] [address] Hemoglobin (Bld) [Mass/Vol] 9.7 g/dL Low 13.0-17.0 [facility] Comment on above: Order Comment: Speci men Type: BLOOD SPECIMENOrdering Facility: [facility] Address: [address] [place] [address] Performed By: #### 5 7021-8 ####[facility] LABORATORYCLIA [id number] [address] IMMATURE GRAN % 0.5 % Normal [facility] Comment on above: Order Comment: Speci men Type: BLOOD SPECIMENOrdering Facility: [facility] Address: [address] [place] [address] Performed By: #### 5 7021-8 ####[facility] LABORATORYCLIA [id number] [address] IMMATURE GRAN ABS 0.07 k/uL Normal <0.10 [facility] Comment on above: Order Comment: Speci men Type: BLOOD SPECIMENOrdering Facility: [facility] Address: [address] [place] [address] Performed By: #### 5 7021-8 ####[facility] LABORATORYCLIA [id number] [address] OF [facility] Lymphocytes (Bld) [#/Vol] 1.99 10*3/uL Normal 1.00-4.00 [facility] Comment on above: Order Comment: Speci men Type: BLOOD SPECIMENOrdering Facility: [facility] Address: [address] [place] [address] Performed By: #### 5 7021-8 ####[facility] LABORATORYCLIA [id number] [address] Lymphocytes/100 WBC (Bld) 13.4 % Normal [facility] Comment on above: Order Comment: Speci men Type: BLOOD SPECIMENOrdering Facility: [facility] Address: [address] [place] [address] Performed By: #### 5 7021-8 ####[facility] LABORATORYCLIA [id number] [address] STATES OF [facility] MCH (RBC) [Entitic mass] 27.2 pg Normal 26.0-34.0 [facility] Comment on above: Order Comment: Speci men Type: BLOOD SPECIMENOrdering Facility: [facility] Address: [address] [place] [address] Performed By: #### 5 7021-8 ####[facility] LABORATORYCLIA [id number] [address] STATES OF [facility] MCHC (RBC) [Mass/Vol] 29.3 g/dL Low 30.5-36.0 [facility] Comment on above: Order Comment: Speci men Type: BLOOD SPECIMENOrdering Facility: [facility] Address: [address] [place] [address] Performed By: #### 5 7021-8 ####[facility] LABORATORYCLIA [id number] [place] [address] [place] MCV (RBC) [Entitic vol] 92.7 fL Normal 80.0-100.0 [facility] Comment on above: Order Comment: Speci men Type: BLOOD SPECIMENOrdering Facility: [facility] Address: [address] [place] [address] Performed By: #### 5 7021-8 ####[facility]ORATORYCLIA [id number] [place] [address] [place] Monocytes (Bld) [#/Vol] 1.10 10*3/uL High <0.87 [facility] Comment on above: Order Comment: Speci men Type: BLOOD SPECIMENOrdering Facility: [facility] Address: [address] [place] [address] Performed By: #### 5 7021-8 ####[facility] LABORATORYCLIA [id number] [address] [place] Monocytes/100 WBC (Bld) 7.4 % Normal [facility] Comment on above: Order Comment: Speci men Type: BLOOD SPECIMENOrdering Facility: [facility] Address: [address] [place] [address] Performed By: #### 5 7021-8 ####[facility]ORATORYCLIA [id number] [place] [address] [place] Neutrophils (Bld) [#/Vol] 11.61 10*3/uL High 1.45-7.50 [facility] Comment on above: Order Comment: Speci men Type: BLOOD SPECIMENOrdering Facility: [facility] Address: [address] [place] [address] Performed By: #### 5 7021-8 ####[facility] LABORATORYCLIA [id number] [address] [place] Neutrophils/100 WBC (Bld) 78.0 % Normal [facility] Comment on above: Order Comment: Speci men Type: BLOOD SPECIMENOrdering Facility: [facility] Address: [address] Performed By: #### 5 7021-8 ####[facility] LABORATORYCLIA [id number] [address] Nucleated RBC (Bld) [#/Vol] 10*3/uL Normal <0.01 [facility] Comment on above: Order Comment: Speci men Type: BLOOD SPECIMENOrdering Facility: [facility] Address: [address] [place] [address] Performed By: #### 5 7021-8 ####[facility] LABORATORYCLIA [id number] [address] Nucleated RBC/100 WBC (Bld) [Ratio] 0.0 /100 WBC Normal [facility] Comment on above: Order Comment: Speci men Type: BLOOD SPECIMENOrdering Facility: [facility] Address: [address] [place] [address] Performed By: #### 5 7021-8 ####[facility]ORATORYCLIA [id number] [address] [place] Platelet mean volume (Bld) [Entitic vol] 10.4 fL Normal 9.0-12.7 [facility] Comment on above: Order Comment: Speci men Type: BLOOD SPECIMENOrdering Facility: [facility] Address: [address] [place] [address] Performed By: #### 5 7021-8 ####[facility]ORATORYCLIA [id number] [address] Platelets (Bld) [#/Vol] 396 10*3/uL Normal 150-400 [facility] Comment on above: Order Comment: Speci men Type: BLOOD SPECIMENOrdering Facility: [facility] Address: [address] [place] [address] Performed By: #### 5 7021-8 ####[facility]ATORYCLIA [id number] [address] [place] RBC (Bld) [#/Vol] 3.57 10*6/uL Low 4.20-6.00 [facility] Comment on above: Order Comment: Speci men Type: BLOOD SPECIMENOrdering Facility: [facility] Address: [address] [place] [address] Performed By: #### 5 7021-8 ####[facility]ORATORYCLIA [id number] [place] [address] [place] WBC (Bld) [#/Vol] 14.87 10*3/uL High 3.70-11.00 [facility] Comment on above: Order Comment: Speci men Type: BLOOD SPECIMENOrdering Facility: [facility] Address: [address] [place] [address] Performed By: #### 5 7021-8 ####[facility]ORATORYCLIA [id number] [address] STATES OF [facility] Gas and Carbon monoxide pane l (BldV)on 07-21-2021 Base excess Calc (BldV) [Moles/Vol] 7 mmol/L High 0-2 [facility] Comment on above: Order Comment: Speci men Type: VENOUS BLOOD SPECIMENOrdering Facility: [facility] Address: [address] [place] [address] Performed By: #### 2 4344-4 ####[facility]ATORYCLIA [id number] [address] [place] Body temperature 98.6 [degF] Normal [facility] Comment on above: Order Comment: Speci men Type: VENOUS BLOOD SPECIMENOrdering Facility: [facility] Address: [address] [place] [address] Performed By: #### 2 4344-4 ####[facility]ATORYCLIA [id number] [address] [place] CALCIUM IONIZED, PH CORRECTED 1.21 mmol/L Normal 1.08-1.30 [facility] Comment on above: Order Comment: Speci men Type: VENOUS BLOOD SPECIMENOrdering Facility: [facility] Address: [address] [place] [address] Performed By: #### 2 4344-4 ####[facility]ATORYCLIA [id number] [address] Calcium.ionized (BldV) [Mass/Vol] 1.23 mmol/L Normal 1.08-1.30 [facility] Comment on above: Order Comment: Speci men Type: VENOUS BLOOD SPECIMENOrdering Facility: [facility] Address: [address] [place] [address] Performed By: #### 2 4344-4 ####[facility]ATORYCLIA [id number] [address] [place] Carboxyhemoglobin (BldV) [Mass fraction] 2.3 % High 0.0-2.0 [facility] Comment on above: Order Comment: Speci men Type: VENOUS BLOOD SPECIMENOrdering Facility: [facility] Address: [address] [place] [address] Result Comment: Carb oxyhemoglobin Reference Range for Smokers: 2.0-8.0% Performed By: #### 2 4344-4 ####[facility]ATORYCLIA [id number] [address] [place] CO2 (BldV) [Partial pressure] 58 mm[Hg] High 42-55 [facility] Comment on above: Order Comment: Speci men Type: VENOUS BLOOD SPECIMENOrdering Facility: [facility] Address: [address] [place] [address] Performed By: #### 2 4344-4 ####[facility]ATORYCLIA [id number] [address] [place] CO2 [Moles/Vol] 31 mmol/L High 25-29 [facility] Comment on above: Order Comment: Speci men Type: VENOUS BLOOD SPECIMENOrdering Facility: [facility] Address: [address] [place] [address] Performed By: #### 2 4344-4 ####[facility]ATORYCLIA [id number] [address] [place] Glucose [Mass/Vol] 146 mg/dL High 60-105 [facility] Comment on above: Order Comment: Speci men Type: VENOUS BLOOD SPECIMENOrdering Facility: [facility] Address: [address] [address] Performed By: #### 2 4344-4 ####[facility]ORATORYCLIA [id number] [place] [address] [place] HCO3 (Bld) [Moles/Vol] 33 mmol/L High 24-[address] [facility] Comment on above: Order Comment: Speci men Type: VENOUS BLOOD SPECIMENOrdering Facility: [facility] Address: [address] [place] [address] Performed By: #### 2 4344-4 ####[facility]ORATORYCLIA [id number] [address] [place] Hematocrit (Bld) [Volume fraction] 30.1 % Low 39.0-51.0 [facility] Comment on above: Order Comment: Speci men Type: VENOUS BLOOD SPECIMENOrdering Facility: [facility] Address: [address] [place] [address] Performed By: #### 2 4344-4 ####[facility]ATORYCLIA [id number] [address] [place] Hemoglobin (Bld) [Mass/Vol] 9.7 g/dL Low 13.0-17.0 [facility] Comment on above: Order Comment: Speci men Type: VENOUS BLOOD SPECIMENOrdering Facility: [facility] Address: [address] [address] Performed By: #### 2 4344-4 ####[facility]ATORYCLIA [id number] [address] [place] Methemoglobin (Bld) [Mass fraction] % Normal 0.0-1.5 [facility] Comment on above: Order Comment: Speci men Type: VENOUS BLOOD SPECIMENOrdering Facility: [facility] Address: [address] [address] Performed By: #### 2 4344-4 ####[facility]ORATORYCLIA [id number] [address] O2 THERAPY NC = Nasal Cannula Normal [facility] Comment on above: Order Comment: Speci men Type: VENOUS BLOOD SPECIMENOrdering Facility: [facility] Address: [address] [place] [address] Performed By: #### 2 4344-4 ####[facility]ATORYCLIA [id number] [address] [place] Oxygen (BldV) [Partial pressure] 64 mm[Hg] High 35-45 [facility] Comment on above: Order Comment: Speci men Type: VENOUS BLOOD SPECIMENOrdering Facility: [facility] Address: [address] [place] [address] Performed By: #### 2 4344-4 ####[facility]ATORYCLIA [id number] [address] [place] Oxygen saturation in Blood 90 % High 60-85 [facility] Comment on above: Order Comment: Speci men Type: VENOUS BLOOD SPECIMENOrdering Facility: [facility] Address: [address] [place] [address] Performed By: #### 2 4344-4 ####[facility]ORATORYCLIA [id number] [address] [place] Oxyhemoglobin (BldV) [Mass fraction] 87 % High 60-85 [facility] Comment on above: Order Comment: Speci men Type: VENOUS BLOOD SPECIMENOrdering Facility: [facility] Address: [address] [place] [address] Performed By: #### 2 4344-4 ####[facility]ATORYCLIA [id number] [address] [place] pH (BldV) 7.38 [pH] Normal 7.32-7.42 [facility] Comment on above: Order Comment: Speci men Type: VENOUS BLOOD SPECIMENOrdering Facility: [facility] Address: [address] [address] Performed By: #### 2 4344-4 ####[facility]ATORYCLIA [id number] [address] [place] Potassium [Moles/Vol] 3.8 mmol/L Normal 3.5-5.0 [facility] Comment on above: Order Comment: Speci men Type: VENOUS BLOOD SPECIMENOrdering Facility: [facility] Address: [address] [place] [address] Performed By: #### 2 4344-4 ####[facility]ATORYCLIA [id number] [address] [place] Sodium [Moles/Vol] 145 mmol/L High 136-144 [facility] Comment on above: Order Comment: Speci men Type: VENOUS BLOOD SPECIMENOrdering Facility: [facility] Address: [address] [place] [address] Performed By: #### 2 4344-4 ####[facility]ATORYCLIA [id number] [address] [place] Base excess Calc (BldV) [Moles/Vol] 8 mmol/L High 0-2 [facility] Comment on above: Order Comment: Speci men Type: VENOUS BLOOD SPECIMENOrdering Facility: [facility] Address: [address] [place] [address] Performed By: #### 2 4344-4 ####[facility]ATORYCLIA [id number] [address] [place] Body temperature 100.22 [degF] Normal [facility] Comment on above: Order Comment: Speci men Type: VENOUS BLOOD SPECIMENOrdering Facility: [facility] Address: [address] [place] [address] Performed By: #### 2 4344-4 ####[facility]ORATORYCLIA [id number] [address] [place] CALCIUM IONIZED, PH CORRECTED 1.25 mmol/L Normal 1.08-1.30 [facility] Comment on above: Order Comment: Speci men Type: VENOUS BLOOD SPECIMENOrdering Facility: [facility] Address: [address] [place] [address] Performed By: #### 2 4344-4 ####[facility]ORATORYCLIA [id number] [place] [address] [place] Calcium.ionized (BldV) [Mass/Vol] 1.24 mmol/L Normal 1.08-1.30 [facility] Comment on above: Order Comment: Speci men Type: VENOUS BLOOD SPECIMENOrdering Facility: [facility] Address: [address] [place] [address] Performed By: #### 2 4344-4 ####[facility]ORATORYCLIA [id number] [address] [place] Carboxyhemoglobin (BldV) [Mass fraction] 2.5 % High 0.0-2.0 [facility] Comment on above: Order Comment: Speci men Type: VENOUS BLOOD SPECIMENOrdering Facility: [facility] Address: [address] [place] [address] Result Comment: Carb oxyhemoglobin Reference Range for Smokers: 2.0-8.0% Performed By: #### 2 4344-4 ####[facility]ATORYCLIA [id number] [place] [address] [place] CO2 (BldV) [Partial pressure] 53 mm[Hg] Normal 42-55 [facility] Comment on above: Order Comment: Speci men Type: VENOUS BLOOD SPECIMENOrdering Facility: [facility] Address: [address] [place] [address] Performed By: #### 2 4344-4 ####[facility]ORATORYCLIA [id number] [place] [address] [place] CO2 [Moles/Vol] 31 mmol/L High 25-29 [facility] Comment on above: Order Comment: Speci men Type: VENOUS BLOOD SPECIMENOrdering Facility: [facility] Address: [address] [place] [address] Performed By: #### 2 4344-4 ####[facility]ATORYCLIA [id number] [address] [place] CO2 adjusted to patient's actual temperature (BldV) [Partial pressure] 56 mmHg High 42-55 [facility] Comment on above: Order Comment: Speci men Type: VENOUS BLOOD SPECIMENOrdering Facility: [facility] Address: [address] [place] [address] Performed By: #### 2 4344-4 ####[facility]ORATORYCLIA [id number] [address] [place] Glucose [Mass/Vol] 131 mg/dL High 60-105 [facility] Comment on above: Order Comment: Speci men Type: VENOUS BLOOD SPECIMENOrdering Facility: [facility] Address: [address] [place] [address] Performed By: #### 2 4344-4 ####[facility]ORATORYCLIA [id number] [address] [place] HCO3 (Bld) [Moles/Vol] 33 mmol/L High 24-[address] [facility] Comment on above: Order Comment: Speci men Type: VENOUS BLOOD SPECIMENOrdering Facility: [facility] Address: [address] [place] [address] Performed By: #### 2 4344-4 ####[facility]ORATORYCLIA [id number] [address] [place] Hematocrit (Bld) [Volume fraction] 30.8 % Low 39.0-51.0 [facility] Comment on above: Order Comment: Speci men Type: VENOUS BLOOD SPECIMENOrdering Facility: [facility] Address: [address] [place] [address] Performed By: #### 2 4344-4 ####[facility]ATORYCLIA [id number] [address] [place] Hemoglobin (Bld) [Mass/Vol] 10.0 g/dL Low 13.0-17.0 [facility] Comment on above: Order Comment: Speci men Type: VENOUS BLOOD SPECIMENOrdering Facility: [facility] Address: [address] [address] Performed By: #### 2 4344-4 ####[facility]ORATORYCLIA [id number] [address] Methemoglobin (Bld) [Mass fraction] % Normal 0.0-1.5 [facility] Comment on above: Order Comment: Speci men Type: VENOUS BLOOD SPECIMENOrdering Facility: [facility] Address: [address] [address] Performed By: #### 2 4344-4 ####[facility]ORATORYCLIA [id number] [address] O2 THERAPY NC = Nasal Cannula Normal [facility] Comment on above: Order Comment: Speci men Type: VENOUS BLOOD SPECIMENOrdering Facility: [facility] Address: [address] [place] [address] Performed By: #### 2 4344-4 ####[facility]ORATORYCLIA [id number] [address] Oxygen (BldV) [Partial pressure] 58 mm[Hg] High 35-45 [facility] Comment on above: Order Comment: Speci men Type: VENOUS BLOOD SPECIMENOrdering Facility: [facility] Address: [address] [place] [address] Performed By: #### 2 4344-4 ####[facility]ORATORYCLIA [id number] [address] Oxygen adjusted to patient's actual temperature (BldV) [Partial pressure] 61 mmHg High 35-45 [facility] Comment on above: Order Comment: Speci men Type: VENOUS BLOOD SPECIMENOrdering Facility: [facility] Address: [address] [address] Performed By: #### 2 4344-4 ####[facility]ATORYCLIA [id number] [address] [place] Oxygen saturation in Blood 88 % High 60-85 [facility] Comment on above: Order Comment: Speci men Type: VENOUS BLOOD SPECIMENOrdering Facility: [facility] Address: [address] [place], [place] [address] Performed By: #### 2 4344-4 ####[facility]ORATORYCLIA [id number] [address] [place] Oxyhemoglobin (BldV) [Mass fraction] 85 % Normal 60-85 [facility] Comment on above: Order Comment: Speci men Type: VENOUS BLOOD SPECIMENOrdering Facility: [facility] Address: [address] [place] [address] Performed By: #### 2 4344-4 ####[facility]ATORYCLIA [id number] [address] [place] pH (BldV) 7.41 [pH] Normal 7.32-7.42 [facility] Comment on above: Order Comment: Speci men Type: VENOUS BLOOD SPECIMENOrdering Facility: [facility] Address: [address] [place] [address] Performed By: #### 2 4344-4 ####[facility]ATORYCLIA [id number] [address] pH adjusted to patient's actual temperature (BldV) 7.40 Normal 7.32-7.42 [facility] Comment on above: Order Comment: Speci men Type: VENOUS BLOOD SPECIMENOrdering Facility: [facility] Address: [address] [place] [address] Performed By: #### 2 4344-4 ####[facility]ATORYCLIA [id number] [address] [place] Potassium [Moles/Vol] 4.0 mmol/L Normal 3.5-5.0 [facility] Comment on above: Order Comment: Speci men Type: VENOUS BLOOD SPECIMENOrdering Facility: [facility] Address: [address] [place] [address] Performed By: #### 2 4344-4 ####[facility]ORATORYCLIA [id number] [address] STATES OF [facility] Sodium [Moles/Vol] 146 mmol/L High 136-144 [facility] Comment on above: Order Comment: Speci men Type: VENOUS BLOOD SPECIMENOrdering Facility: [facility] Address: [address] [place] [address] Performed By: #### 2 4344-4 ####[facility]ORATORYCLIA [id number] [place] [address] [place] Magnesium SerPl-mCncon 07-21 Magnesium [Mass/Vol] 2.5 mg/dL High 1.7-2.3 [facility] Comment on above: Order Comment: Speci men Type: BLOOD SPECIMENOrdering Facility: [facility] Address: [address] [place] [address] Performed By: #### 1 9123-9, 2777-1, 33442-4 ####[facility]ATORYCLIA [id number] [address] [place] NURSING PROGon 07-21-2021 NURSING PROG Normal [facility] Phosphate SerPl-mCncon 07-21 Phosphate [Mass/Vol] 3.7 mg/dL Normal 2.7-4.8 [facility] Comment on above: Order Comment: Speci men Type: BLOOD SPECIMENOrdering Facility: [facility] Address: [address] [place] [address] Performed By: #### 1 9123-9, 2777-1, 10343-7 ####[facility]ORATORYCLIA [id number] [address] [place] THERAPY NTon 07-21-2021 THERAPY NT Normal [facility] XR CHEST 1V FRONTALon 2021 XR CHEST 1V FRONTAL Normal [facility] aPTT PPPon 07-21-2021 aPTT Coag (PPP) [Time] 53.0 s High 23.0-32.[address] [facility] Comment on above: Order Comment: Speci men Type: BLOOD SPECIMENOrdering Facility: [facility] Address: [address] [place] [address] Performed By: #### 1 4979-9 ####[facility]ORATORYCLIA [id number] [place] [address] [place] ALLIED HEALTHon 07-20-2021 ALLIED HEALTH Normal [facility] Basic metabolic 2000 panelon 07-20-2021 Anion gap [Moles/Vol] 8 mmol/L Low 9-18 [facility] Comment on above: Order Comment: Speci men Type: BLOOD SPECIMENOrdering Facility: [facility] Address: [address] [place] [address] Performed By: #### 2 4321-2, , 2776-05 ####[facility]ORATORYCLIA [id number] [place] [address] [place] Calcium [Mass/Vol] 9.7 mg/dL Normal 8.5-10.2 [facility] Comment on above: Order Comment: Speci men Type: BLOOD SPECIMENOrdering Facility: [facility] Address: [address] [place] [address] Performed By: #### 2 4321-2, , 2776-05 ####[facility]ATORYCLIA [id number] [place] [address] [place] Chloride [Moles/Vol] 104 mmol/L Normal 97-105 [facility] Comment on above: Order Comment: Speci men Type: BLOOD SPECIMENOrdering Facility: [facility] Address: [address] [place] [address] Performed By: #### 2 4321-2, , 2776-05 ####[facility]ATORYCLIA [id number] [place] [address] [place] CO2 [Moles/Vol] 34 mmol/L High 22-30 [facility] Comment on above: Order Comment: Speci men Type: BLOOD SPECIMENOrdering Facility: [facility] Address: [address] [place] [address] Performed By: #### 2 4321-2, 29438-6, 2776-05 ####[facility] [id number] [place] [address] [place] Creatinine [Mass/Vol] 0.76 mg/dL Normal 0.73-1.22 [facility] Comment on above: Order Comment: Speccara feldman Type: BLOOD SPECIMENOrdering Facility: [facility] Address: [address] [place], [place] [phone] Performed By: #### 2 4321-2, , 2776-05 ####[facility] HOSPITALIA [id number] [place] [address] [place] [facility] ESTIMATED GLOMERULAR FILTRATION RATE 97 mL/min/1.73m??? Normal >=60 [facility] Comment on above: Order Comment: Shira feldman Type: BLOOD SPECIMENOrdering Facility: [facility] Address: [address] [place], [place] [phone] Result Comment: Luzmaria mated Glomerular Filtration Rate [...] Performed By: #### 2 4321-2, , 2776-05 ####[facility] HOSPITALIA [id number] [place] [address] [place] Glucose [Mass/Vol] 123 mg/dL High 74-99 [facility] Comment on above: Order Comment: Speci francia Type: BLOOD SPECIMENOrdering Facility: [facility] Address: [address] [phone] Result Comment: The [place] [employer] (ADA) provides guidance for cutoff [...] Standards of Medical Care in Diabetes 2016, [place] [employer]. Diabetes Care. 2016.39(Suppl 1). Performed By: #### 2 4321-2, , 2776-05 ####[facility]ORATORYCLIA [id number] [place] [address] [place] Potassium [Moles/Vol] 4.4 mmol/L Normal 3.7-5.1 [facility] Comment on above: Order Comment: Shira feldman Type: BLOOD SPECIMENOrdering Facility: [facility] Address: [address] [place] [address] Performed By: #### 2 4321-2, , 2776-05 ####[facility]ITALCLIA [id number] [address] [place] Sodium [Moles/Vol] 146 mmol/L High 136-144 [facility] Comment on above: Order Comment: Shira feldman Type: BLOOD SPECIMENOrdering Facility: [facility] Address: [address] [place] [address] Performed By: #### 2 4321-2, , 2776-05 ####[facility] LABORATORYCLIA [id number] [place] [address] [place] Urea nitrogen [Mass/Vol] 38 mg/dL High 9-24 [facility] Comment on above: Order Comment: Shira feldman Type: BLOOD SPECIMENOrdering Facility: [facility] Address: [address] [place] [address] Performed By: #### 2 4321-2, , 2776-05 ####[facility] LABORATORYCLIA [id number] [place] [address] [place] CASE MANAGEMon 07-20-2021 CASE MANAGEM Normal [facility] CBC W Auto Differential pane l (Bld)on 07-20-2021 Basophils (Bld) [#/Vol] 0.05 10*3/uL Normal <0.11 [facility] Comment on above: Order Comment: Speci men Type: BLOOD SPECIMENOrdering Facility: [facility] Address: [address] [address] Performed By: #### 5 7021-8 ####[facility]ORATORYCLIA [id number] [place] [address] [place] Basophils/100 WBC (Bld) 0.5 % Normal [facility] Comment on above: Order Comment: Speci men Type: BLOOD SPECIMENOrdering Facility: [facility] Address: [address] [place] [address] Performed By: #### 5 7021-8 ####[facility] LABORATORYCLIA [id number] [address] [place] Differential cell count method Nom (Bld) Auto Normal [facility] Comment on above: Order Comment: Speci men Type: BLOOD SPECIMENOrdering Facility: [facility] Address: [address] [place] [address] Performed By: #### 5 7021-8 ####[facility] LABORATORYCLIA [id number] [place] [address] [place] Eosinophils (Bld) [#/Vol] 0.43 10*3/uL Normal <0.46 [facility] Comment on above: Order Comment: Speci men Type: BLOOD SPECIMENOrdering Facility: [facility] Address: [address] [place] [address] Performed By: #### 5 7021-8 ####[facility] LABORATORYCLIA [id number] [address] [place] Eosinophils/100 WBC (Bld) 4.1 % Normal [facility] Comment on above: Order Comment: Speci men Type: BLOOD SPECIMENOrdering Facility: [facility] Address: [address] [place] [address] Performed By: #### 5 7021-8 ####[facility] LABORATORYCLIA [id number] [address] Erythrocyte distribution width (RBC) [Ratio] 16.7 % High 11.5-15.0 [facility] Comment on above: Order Comment: Speci men Type: BLOOD SPECIMENOrdering Facility: [facility] Address: [address] [place] [address] Performed By: #### 5 7021-8 ####[facility] LABORATORYCLIA [id number] [address] OF [facility] Hematocrit (Bld) [Volume fraction] 33.0 % Low 39.0-51.0 [facility] Comment on above: Order Comment: Speci men Type: BLOOD SPECIMENOrdering Facility: [facility] Address: [address] [place] [address] Performed By: #### 5 7021-8 ####[facility] LABORATORYCLIA [id number] [address] Hemoglobin (Bld) [Mass/Vol] 9.7 g/dL Low 13.0-17.0 [facility] Comment on above: Order Comment: Speci men Type: BLOOD SPECIMENOrdering Facility: [facility] Address: [address] [place] [address] Performed By: #### 5 7021-8 ####[facility] LABORATORYCLIA [id number] [address] IMMATURE GRAN % 0.4 % Normal [facility] Comment on above: Order Comment: Speci men Type: BLOOD SPECIMENOrdering Facility: [facility] Address: [address] [place] [address] Performed By: #### 5 7021-8 ####[facility] LABORATORYCLIA [id number] [address] IMMATURE GRAN ABS 0.04 k/uL Normal <0.10 [facility] Comment on above: Order Comment: Speci men Type: BLOOD SPECIMENOrdering Facility: [facility] Address: [address] [place] [address] Performed By: #### 5 7021-8 ####[facility] LABORATORYCLIA [id number] [address] OF [facility] Lymphocytes (Bld) [#/Vol] 1.99 10*3/uL Normal 1.00-4.00 [facility] Comment on above: Order Comment: Speci men Type: BLOOD SPECIMENOrdering Facility: [facility] Address: [address] [place] [address] Performed By: #### 5 7021-8 ####[facility] LABORATORYCLIA [id number] [address] Lymphocytes/100 WBC (Bld) 18.8 % Normal [facility] Comment on above: Order Comment: Speci men Type: BLOOD SPECIMENOrdering Facility: [facility] Address: [address] [place] [address] Performed By: #### 5 7021-8 ####[facility] LABORATORYCLIA [id number] [address] MCH (RBC) [Entitic mass] 27.8 pg Normal 26.0-34.0 [facility] Comment on above: Order Comment: Speci men Type: BLOOD SPECIMENOrdering Facility: [facility] Address: [address] [place] [address] Performed By: #### 5 7021-8 ####[facility] LABORATORYCLIA [id number] [address] STATES OF [facility] MCHC (RBC) [Mass/Vol] 29.4 g/dL Low 30.5-36.0 [facility] Comment on above: Order Comment: Speci men Type: BLOOD SPECIMENOrdering Facility: [facility] Address: [address] [place] [address] Performed By: #### 5 7021-8 ####[facility] LABORATORYCLIA [id number] [address] MCV (RBC) [Entitic vol] 94.6 fL Normal 80.0-100.0 [facility] Comment on above: Order Comment: Speci men Type: BLOOD SPECIMENOrdering Facility: [facility] Address: [address] [place] [address] Performed By: #### 5 7021-8 ####[facility] LABORATORYCLIA [id number] [place] [address] [place] Monocytes (Bld) [#/Vol] 0.82 10*3/uL Normal <0.87 [facility] Comment on above: Order Comment: Speci men Type: BLOOD SPECIMENOrdering Facility: [facility] Address: [address] [place] [address] Performed By: #### 5 7021-8 ####[facility] LABORATORYCLIA [id number] [address] [place] Monocytes/100 WBC (Bld) 7.8 % Normal [facility] Comment on above: Order Comment: Speci men Type: BLOOD SPECIMENOrdering Facility: [facility] Address: [address] [place] [address] Performed By: #### 5 7021-8 ####[facility]ORATORYCLIA [id number] [place] [address] [place] Neutrophils (Bld) [#/Vol] 7.23 10*3/uL Normal 1.45-7.50 [facility] Comment on above: Order Comment: Speci men Type: BLOOD SPECIMENOrdering Facility: [facility] Address: [address] [place] [address] Performed By: #### 5 7021-8 ####[facility] LABORATORYCLIA [id number] [place] [address] [place] Neutrophils/100 WBC (Bld) 68.4 % Normal [facility] Comment on above: Order Comment: Speci men Type: BLOOD SPECIMENOrdering Facility: [facility] Address: [address] [place] [address] Performed By: #### 5 7021-8 ####[facility]ORATORYCLIA [id number] [address] [place] Nucleated RBC (Bld) [#/Vol] 10*3/uL Normal <0.01 [facility] Comment on above: Order Comment: Speci men Type: BLOOD SPECIMENOrdering Facility: [facility] Address: [address] [place] [address] Performed By: #### 5 7021-8 ####[facility] LABORATORYCLIA [id number] [address] [place] Nucleated RBC/100 WBC (Bld) [Ratio] 0.0 /100 WBC Normal [facility] Comment on above: Order Comment: Speci men Type: BLOOD SPECIMENOrdering Facility: [facility] Address: [address] [place] [address] Performed By: #### 5 7021-8 ####[facility] LABORATORYCLIA [id number] [address] [place] Platelet mean volume (Bld) [Entitic vol] 10.5 fL Normal 9.0-12.7 [facility] Comment on above: Order Comment: Speci men Type: BLOOD SPECIMENOrdering Facility: [facility] Address: [address] [place] [address] Performed By: #### 5 7021-8 ####[facility] LABORATORYCLIA [id number] [address] [place] Platelets (Bld) [#/Vol] 400 10*3/uL Normal 150-400 [facility] Comment on above: Order Comment: Speci men Type: BLOOD SPECIMENOrdering Facility: [facility] Address: [address] [place] [address] Performed By: #### 5 7021-8 ####[facility] LABORATORYCLIA [id number] [address] [place] RBC (Bld) [#/Vol] 3.49 10*6/uL Low 4.20-6.00 [facility] Comment on above: Order Comment: Speci men Type: BLOOD SPECIMENOrdering Facility: [facility] Address: [address] [place] [address] Performed By: #### 5 7021-8 ####[facility] LABORATORYCLIA [id number] [address] WBC (Bld) [#/Vol] 10.56 10*3/uL Normal 3.70-11.00 [facility] Comment on above: Order Comment: Speci men Type: BLOOD SPECIMENOrdering Facility: [facility] Address: [address] [place] [address] Performed By: #### 5 7021-8 ####[facility] LABORATORYCLIA [id number] [address] OF [facility] CONSULT PROGon 07-20-2021 CONSULT PROG Normal [facility] CT BRAIN WO IVCONon 07-21-[address] BRAIN WO IVCON Normal [facility] Magnesium SerPl-ncon 07-20 Magnesium [Mass/Vol] 2.4 mg/dL High 1.7-2.3 [facility] Comment on above: Order Comment: Speci men Type: BLOOD SPECIMENOrdering Facility: [facility] Address: [address] [place] [address] Performed By: #### 2 4321-2, , 2776-05 ####[facility]ORATORYCLIA [id number] [address] [place] NUTRITIONon 07-20-2021 NUTRITION Normal [facility] Phosphate SerPl-mCncon 07-20 Phosphate [Mass/Vol] 4.1 mg/dL Normal 2.7-4.8 [facility] Comment on above: Order Comment: Speci men Type: BLOOD SPECIMENOrdering Facility: [facility] Address: [address] [place] [address] Performed By: #### 2 4321-2, 41352-6, 2777-1 ####[facility] LABORATORYCLIA [id number] [address] [place] aPTT PPPon 07-20-2021 aPTT Coag (PPP) [Time] 53.6 s High 23.0-32.[address] [facility] Comment on above: Order Comment: Speci men Type: BLOOD SPECIMENOrdering Facility: [facility] Address: [address] [place] [address] Performed By: #### 1 4979-9 ####[facility]ORATORYCLIA [id number] [place] [address] [place] Bacteria CSF Culton 07-20-19 22 Bacteria identified Cx Nom (CSF) CULTURE, CSF: No growth 14 days GRAM STAIN: No organisms seen No Polymorphonuclear Leukocytes Rare Mononuclear cells Gram stain performed on cytospun specimen. Normal [facility] Comment on above: Performed By: #### 6 06-4 ####[facility]ORATORYCLIA [id number] [address] [place] CONSULT PROGon 07-19-2021 CONSULT PROG Normal [facility] CSF MANUAL DIFFon 07-19-2021 DIF TTL, CSF 100 cells counted Normal [facility] Comment on above: Order Comment: Speci men Type: CEREBROSPINAL FLUIDOrdering Facility: [facility] Address: [address] [place] [address] Performed By: #### L [id number], 86362-2, [id number] ####[facility]ORATORYCLIA [id number] [place] [address] [place] EOSIN%, CSF 1 % Normal [facility] Comment on above: Order Comment: Speci men Type: CEREBROSPINAL FLUIDOrdering Facility: [facility] Address: [address] [place] [address] Performed By: #### L [id number], 00578-4, [id number] ####[facility]ORATORYCLIA [id number] [place] [address] [place] LYMPH%, CSF 67 % Normal 50-90 [facility] Comment on above: Order Comment: Speci men Type: CEREBROSPINAL FLUIDOrdering Facility: [facility] Address: [address] [place] [address] Performed By: #### L [id number], 96749-8, [id number] ####[facility]ORATORYCLIA [id number] [place] [address] [place] MACRO%, CSF 1 % High <1 [facility] Comment on above: Order Comment: Speci men Type: CEREBROSPINAL FLUIDOrdering Facility: [facility] Address: [address] [place] [address] Performed By: #### L JD3964, 79386-0, [id number] ####[facility]ATORYCLIA [id number] [place] [address] [place] MONO%, CSF 18 % Normal 10-50 [facility] Comment on above: Order Comment: Speci men Type: CEREBROSPINAL FLUIDOrdering Facility: [facility] Address: [address] [place] [address] Performed By: #### L [id number], 56611-4, [id number] ####[facility]ORATORYCLIA [id number] [place] [address] [place] NEUT%, CSF 11 % High 0-3 [facility] Comment on above: Order Comment: Speci men Type: CEREBROSPINAL FLUIDOrdering Facility: [facility] Address: [address] [place] [address] Performed By: #### L [id number], 30919-5, [id number] ####[facility]ORATORYCLIA [id number] [place] [address] [place] OTHER CL%, CSF 2 % Normal [facility] Comment on above: Order Comment: Speci men Type: CEREBROSPINAL FLUIDOrdering Facility: [facility] Address: [address] [place] [address] Result Comment: Path review to follow. Performed By: #### L [id number], 23773-0, [id number] ####[facility]ORATORYCLIA [id number] [address] [place] CSF PATHOLOGIST INTERP (LAB REFLEX ORDER-NO BILL)on 07-19-2021 CSF STAFF REVIEW Normal [facility] Comment on above: Order Comment: Speci men Type: CEREBROSPINAL FLUIDOrdering Facility: [facility] Address: [address] [place] [address] Performed By: #### L [id number], 24178-5, [id number] ####[facility]ORATORYCLIA [id number] [address] Pathologist name Reviewed by Wing Cummings MD [facility] Comment on above: Order Comment: Speci men Type: CEREBROSPINAL FLUIDOrdering Facility: [facility] Address: [address] [place] [address] Performed By: #### L [id number], 54381-9, [id number] ####[facility]ORATORYCLIA [id number] [address] Cell count panel (CSF)on Clarity (CSF) Clear Normal Clear [facility] Comment on above: Order Comment: Speci men Type: CEREBROSPINAL FLUIDOrdering Facility: [facility] Address: [address] [place] [address] Performed By: #### L [id number], 10813-8, [id number] ####[facility]ATORYCLIA [id number] [address] Clarity (Unsp spec) Not Indicated Normal Clear [facility] Comment on above: Order Comment: Speci men Type: CEREBROSPINAL FLUIDOrdering Facility: [facility] Address: [address] [place] [address] Performed By: #### L [id number], 45501-3, [id number] ####[facility]ATORYCLIA [id number] [address] Color (CSF) Colorless Normal Colorless [facility] Comment on above: Order Comment: Speci men Type: CEREBROSPINAL FLUIDOrdering Facility: [facility] Address: [address] [place] [address] Performed By: #### L [id number], 79694-7, [id number] ####[facility]ORATORYCLIA [id number] [address] Color (Spun CSF) Not Indicated Normal Colorless [facility] Comment on above: Order Comment: Speci men Type: CEREBROSPINAL FLUIDOrdering Facility: [facility] Address: [address] [place] [address] Performed By: #### L RU2395, 91597-4, [id number] ####[facility] LABORATORYCLIA [id number] [address] CSF TUBE NUMBER Sterile Container Normal [facility] Comment on above: Order Comment: Speci men Type: CEREBROSPINAL FLUIDOrdering Facility: [facility] Address: [address] [place] [address] Performed By: #### L [id number], 57670-1, [id number] ####[facility]ORATORYCLIA [id number] [address] RBC Manual cnt (CSF) [#/Vol] 0 cells/uL Normal 0-5 [facility] Comment on above: Order Comment: Speci men Type: CEREBROSPINAL FLUIDOrdering Facility: [facility] Address: [address] [place] [address] Performed By: #### L [id number], 58688-8, [id number] ####[facility]ATORYCLIA [id number] [address] WBC Manual cnt (CSF) [#/Vol] 2 cells/uL Normal 0-5 [facility] Comment on above: Order Comment: Speci men Type: CEREBROSPINAL FLUIDOrdering Facility: [facility] Address: [address] [place] [address] Performed By: #### L [id number], 40434-5, [id number] ####[facility]ORATORYCLIA [id number] [address] [place] Glucose CSF-mCncon 2 Glucose (CSF) [Mass/Vol] 69 mg/dL Normal 40-70 [facility] Comment on above: Order Comment: Speci men Type: CEREBROSPINAL FLUIDOrdering Facility: [facility] Address: [address] [place], [place] [id number] Result Comment: Lumb ar CSF glucose values of healthy patients are approximately 60% of the plasma values and must always be compared with a concurrently measured plasma value for adequate clinical interpretation.References: 1. Glucose HK (GLUC3) [package insert V 12.0 Citizen Of [place]]. [employer], [place], [place]. September 2015. 2. Michelle Moore, Loki HGarfield (2015). Chapter 7: Glucose and Lactate. F. Irina rose al.(eds.), Cerebrospinal Fluid in Clinical Neurology. [place]: [employer]. Performed By: #### 2 342-4, 2880-3 ####[facility] LABORATORYCLIA [id number] [address] OF [facility] NURSING PROGon 07-19-2021 NURSING PROG Normal [facility] NURSING PROG Normal [facility] Prot CSF-mCncon 07-19-2021 Protein (CSF) [Mass/Vol] 51 mg/dL High 15-45 [facility] Comment on above: Order Comment: Speci men Type: CEREBROSPINAL FLUIDOrdering Facility: [facility] Address: [address] [place], [place] [address] Performed By: #### 2 342-4, 2880-3 ####[facility]ORATORYCLIA [id number] [address] [place] THERAPY NTon 07-19-2021 THERAPY NT Normal [facility] Urinalysis complete panel (U )on 07-19-2021 Bilirubin Ql (U) Negative Normal Negative [facility] Comment on above: Order Comment: Speci men Type: URINE SPECIMENOrdering Facility: [facility] Address: [address] [place], [place] [address] Performed By: #### 2 4356-8 ####[facility]ORATORYCLIA [id number] [address] [place] Clarity (Unsp spec) Clear Normal Clear [facility] Comment on above: Order Comment: Speci men Type: URINE SPECIMENOrdering Facility: [facility] Address: [address] [place] [address] Performed By: #### 2 4356-8 ####[facility]ORATORYCLIA [id number] [address] STATES [facility] Color (U) Colorless Normal yellow [facility] Comment on above: Order Comment: Speci men Type: URINE SPECIMENOrdering Facility: [facility] Address: [address] [place] [address] Performed By: #### 2 4356-8 ####[facility]ORATORYCLIA [id number] [address] Glucose Test strip (U) [Mass/Vol] Negative Normal Negative [facility] Comment on above: Order Comment: Speci men Type: URINE SPECIMENOrdering Facility: [facility] Address: [address] [place] [address] Performed By: #### 2 4356-8 ####[facility]ORATORYCLIA [id number] [address] [place] Hemoglobin Ql (U) Trace Abnormal Negative [facility] Comment on above: Order Comment: Speci men Type: URINE SPECIMENOrdering Facility: [facility] Address: [address] [place] [address] Performed By: #### 2 4356-8 ####[facility]ORATORYCLIA [id number] [address] [place] Hyaline casts (Urine sed) [#/Area] 1-3 /LPF Abnormal 0 /LPF [facility] Comment on above: Order Comment: Speci men Type: URINE SPECIMENOrdering Facility: [facility] Address: [address] [place] [address] Performed By: #### 2 4356-8 ####[facility] LABORATORYCLIA [id number] [address] Ketones Ql (U) Negative Normal Negative [facility] Comment on above: Order Comment: Speci men Type: URINE SPECIMENOrdering Facility: [facility] Address: [address] [place] [address] Performed By: #### 2 4356-8 ####[facility]ORATORYCLIA [id number] [address] Leukocyte esterase Test strip Ql (U) Negative Normal Negative [facility] Comment on above: Order Comment: Speci men Type: URINE SPECIMENOrdering Facility: [facility] Address: [address] [place] [address] Performed By: #### 2 4356-8 ####[facility] LABORATORYCLIA [id number] [address] STATES [facility] Nitrite Ql (U) Negative Normal Negative [facility] Comment on above: Order Comment: Speci men Type: URINE SPECIMENOrdering Facility: [facility] Address: [address] [place] [address] Performed By: #### 2 4356-8 ####[facility] LABORATORYCLIA [id number] [address] [place] pH (U) 7.0 [pH] Normal 5.0-8.0 [facility] Comment on above: Order Comment: Speci men Type: URINE SPECIMENOrdering Facility: [facility] Address: [address] [place] [address] Performed By: #### 2 4356-8 ####[facility]ORATORYCLIA [id number] [address] Protein (U) [Mass/Vol] Negative Normal Negative [facility] Comment on above: Order Comment: Speci men Type: URINE SPECIMENOrdering Facility: [facility] Address: [address] [place] [address] Performed By: #### 2 4356-8 ####[facility]ORATORYCLIA [id number] [address] RBC LM.HPF (Urine sed) [#/Area] 6-10 /HPF Abnormal 0-3 /HPF [facility] Comment on above: Order Comment: Speci men Type: URINE SPECIMENOrdering Facility: [facility] Address: [address] [address] Performed By: #### 2 4356-8 ####[facility]ORATORYCLIA [id number] [address] Specific gravity (U) [Rel density] 1.008 Normal 1.005-1.030 [facility] Comment on above: Order Comment: Speci men Type: URINE SPECIMENOrdering Facility: [facility] Address: [address] [place] [address] Performed By: #### 2 4356-8 ####[facility]ORATORYCLIA [id number] [address] Urobilinogen Ql (U) Normal Normal Negative [facility] Comment on above: Order Comment: Speci men Type: URINE SPECIMENOrdering Facility: [facility] Address: [address] [place] [address] Performed By: #### 2 4356-8 ####[facility] LABORATORYCLIA [id number] [address] [place] [facility] WBC LM.HPF (Urine sed) [#/Area] 0-5 /HPF Normal 0-5 /HPF [facility] Comment on above: Order Comment: Speci men Type: URINE SPECIMENOrdering Facility: [facility] Address: [address] [place] [address] Performed By: #### 2 4356-8 ####[facility] LABORATORYCLIA [id number] [address] [place] Vancomycin random [Mass/Vol] on 07-19-2021 Vancomycin [Mass/Vol] 13.9 ug/mL Normal 10.0-20.0 [facility] Comment on above: Order Comment: Speci men Type: BLOOD SPECIMENOrdering Facility: [facility] Address: [address] [place] [address] Result Comment: Refe rence ranges and high/low indicator flags are provided as general guidelines only. The treating physician must determine appropriate target levels/dosing based on the specific clinical situation. Performed By: #### 4 091-5 ####[facility]ORATORYCLIA [id number] [address] aPTT PPPon 07-19-2021 aPTT Coag (PPP) [Time] 53.9 s High 23.0-32.[address] [facility] Comment on above: Order Comment: Speci men Type: BLOOD SPECIMENOrdering Facility: [facility] Address: [address] [place] [address] Performed By: #### 1 4979-9 ####[facility]ORATORYCLIA [id number] [address] OF [facility] Basic metabolic 2000 panelon 07-18-2021 Anion gap [Moles/Vol] 6 mmol/L Low 9-18 [facility] Comment on above: Order Comment: Speci men Type: BLOOD SPECIMENOrdering Facility: [facility] Address: [address] [place] [address] Performed By: #### 2 4321-2, , 2776-05 ####[facility] [id number] [place] [address] [place] Calcium [Mass/Vol] 9.4 mg/dL Normal 8.5-10.2 [facility] Comment on above: Order Comment: Speci men Type: BLOOD SPECIMENOrdering Facility: [facility] Address: [address] [place] [address] Performed By: #### 2 4321-2, , 2776-05 ####[facility] LABORATORYCLIA [id number] [address] STATES OF [facility] Chloride [Moles/Vol] 103 mmol/L Normal 97-105 [facility] Comment on above: Order Comment: Speci men Type: BLOOD SPECIMENOrdering Facility: [facility] Address: [address] [place] [address] Performed By: #### 2 4321-2, , 2776- ####[facility]ATORYCLIA [id number] [place] [address] [place] CO2 [Moles/Vol] 34 mmol/L High 22-30 [facility] Comment on above: Order Comment: Johni francia Type: BLOOD SPECIMENOrdering Facility: [facility] Address: [address] [place] [address] Performed By: #### 2 4321-2, , 2776-05 ####[facility]ATORYCLIA [id number] [address] OF [facility] Creatinine [Mass/Vol] 0.75 mg/dL Normal 0.73-1.22 [facility] Comment on above: Order Comment: Speci men Type: BLOOD SPECIMENOrdering Facility: [facility] Address: [address] [place] [address] Performed By: #### 2 4321-2, , 2776-05 ####[facility]PITALIA [id number] [address] ESTIMATED GLOMERULAR FILTRATION RATE 98 mL/min/1.73m??? Normal >=60 [facility] Comment on above: Order Comment: Shira feldman Type: BLOOD SPECIMENOrdering Facility: [facility] Address: [address] [place] [address] Result Comment: Luzmaria mated Glomerular Filtration Rate [...] Performed By: #### 2 4321-2, , 2776-05 ####[facility]ORATORYCLIA [id number] [place] [id number] [place] Glucose [Mass/Vol] 125 mg/dL High 74-99 [facility] Comment on above: Order Comment: Speci men Type: BLOOD SPECIMENOrdering Facility: [facility] Address: [address] [id number] Result Comment: The [place] [employer] (ADA) provides guidance for cutoff [...] Standards of Medical Care in Diabetes 2016, [place] [employer]. Diabetes Care. 2016.39(Suppl 1). Performed By: #### 2 4321-2, , 2776-05 ####[facility]ATORYCLIA [id number] [place] [address] [place] Potassium [Moles/Vol] 4.4 mmol/L Normal 3.7-5.1 [facility] Comment on above: Order Comment: Speci men Type: BLOOD SPECIMENOrdering Facility: [facility] Address: [address] Performed By: #### 2 4321-2, , 2776-05 ####[facility]ORATORYCLIA [id number] [place] [address] [place] Sodium [Moles/Vol] 143 mmol/L Normal 136-144 [facility] Comment on above: Order Comment: Speci men Type: BLOOD SPECIMENOrdering Facility: [facility] Address: [address] [phone] Performed By: #### 2 4321-2, , 2776-05 ####[facility]ATORYCLIA [id number] [place] [address] [place] Urea nitrogen [Mass/Vol] 33 mg/dL High 9-24 [facility] Comment on above: Order Comment: Speci men Type: BLOOD SPECIMENOrdering Facility: [facility] Address: [address] [address] Performed By: #### 2 4321-2, 55602-6, 2777-1 ####[facility]ORATORYCLIA [id number] [address] [place] CASE MANAGEMon 07-18-2021 CASE MANAGEM Normal [facility] CBC W Auto Differential pane l (Bld)on 07-18-2021 Basophils (Bld) [#/Vol] 0.05 10*3/uL Normal <0.11 [facility] Comment on above: Order Comment: Speci men Type: BLOOD SPECIMENOrdering Facility: [facility] Address: [address] [place] [address] Performed By: #### 5 7021-8 ####[facility]ATORYCLIA [id number] [address] [place] Basophils/100 WBC (Bld) 0.5 % Normal [facility] Comment on above: Order Comment: Speci men Type: BLOOD SPECIMENOrdering Facility: [facility] Address: [address] [address] Performed By: #### 5 7021-8 ####[facility]ORATORYCLIA [id number] [address] [place] Differential cell count method Nom (Bld) Auto Normal [facility] Comment on above: Order Comment: Speci men Type: BLOOD SPECIMENOrdering Facility: [facility] Address: [address] [address] Performed By: #### 5 7021-8 ####[facility]ORATORYCLIA [id number] [address] [place] Eosinophils (Bld) [#/Vol] 0.44 10*3/uL Normal <0.46 [facility] Comment on above: Order Comment: Speci men Type: BLOOD SPECIMENOrdering Facility: [facility] Address: [address] [address] Performed By: #### 5 7021-8 ####[facility]ORATORYCLIA [id number] [address] Eosinophils/100 WBC (Bld) 4.3 % Normal [facility] Comment on above: Order Comment: Speci men Type: BLOOD SPECIMENOrdering Facility: [facility] Address: [address] [place] [address] Performed By: #### 5 7021-8 ####[facility]ORATORYCLIA [id number] [address] Erythrocyte distribution width (RBC) [Ratio] 16.6 % High 11.5-15.0 [facility] Comment on above: Order Comment: Speci men Type: BLOOD SPECIMENOrdering Facility: [facility] Address: [address] [place] [address] Performed By: #### 5 7021-8 ####[facility]ORATORYCLIA [id number] [address] Hematocrit (Bld) [Volume fraction] 32.2 % Low 39.0-51.0 [facility] Comment on above: Order Comment: Speci men Type: BLOOD SPECIMENOrdering Facility: [facility] Address: [address] [place] [address] Performed By: #### 5 7021-8 ####[facility]ATORYCLIA [id number] [address] Hemoglobin (Bld) [Mass/Vol] 9.5 g/dL Low 13.0-17.0 [facility] Comment on above: Order Comment: Speci men Type: BLOOD SPECIMENOrdering Facility: [facility] Address: [address] [place] [address] Performed By: #### 5 7021-8 ####[facility]ORATORYCLIA [id number] [address] IMMATURE GRAN % 0.4 % Normal [facility] Comment on above: Order Comment: Speci men Type: BLOOD SPECIMENOrdering Facility: [facility] Address: [address] [place] [address] Performed By: #### 5 7021-8 ####[facility]ORATORYCLIA [id number] [address] IMMATURE GRAN ABS 0.04 k/uL Normal <0.10 [facility] Comment on above: Order Comment: Speci men Type: BLOOD SPECIMENOrdering Facility: [facility] Address: [address] [place] [address] Performed By: #### 5 7021-8 ####[facility]ORATORYCLIA [id number] [address] Lymphocytes (Bld) [#/Vol] 1.71 10*3/uL Normal 1.00-4.00 [facility] Comment on above: Order Comment: Speci men Type: BLOOD SPECIMENOrdering Facility: [facility] Address: [address] [place] [address] Performed By: #### 5 7021-8 ####[facility]ATORYCLIA [id number] [address] Lymphocytes/100 WBC (Bld) 16.9 % Normal [facility] Comment on above: Order Comment: Speci men Type: BLOOD SPECIMENOrdering Facility: [facility] Address: [address] [place] [address] Performed By: #### 5 7021-8 ####[facility]ORATORYCLIA [id number] [address] MCH (RBC) [Entitic mass] 27.9 pg Normal 26.0-34.0 [facility] Comment on above: Order Comment: Speci men Type: BLOOD SPECIMENOrdering Facility: [facility] Address: [address] [place] [address] Performed By: #### 5 7021-8 ####[facility]ATORYCLIA [id number] [address] MCHC (RBC) [Mass/Vol] 29.5 g/dL Low 30.5-36.0 [facility] Comment on above: Order Comment: Speci men Type: BLOOD SPECIMENOrdering Facility: [facility] Address: [address] [address] Performed By: #### 5 7021-8 ####[facility]ORATORYCLIA [id number] [address] OF [facility] MCV (RBC) [Entitic vol] 94.7 fL Normal 80.0-100.0 [facility] Comment on above: Order Comment: Speci men Type: BLOOD SPECIMENOrdering Facility: [facility] Address: [address] [place] [address] Performed By: #### 5 7021-8 ####[facility]ORATORYCLIA [id number] [address] [place] Monocytes (Bld) [#/Vol] 0.69 10*3/uL Normal <0.87 [facility] Comment on above: Order Comment: Speci men Type: BLOOD SPECIMENOrdering Facility: [facility] Address: [address] [place] [address] Performed By: #### 5 7021-8 ####[facility]ORATORYCLIA [id number] [address] [place] [facility] Monocytes/100 WBC (Bld) 6.8 % Normal [facility] Comment on above: Order Comment: Speci men Type: BLOOD SPECIMENOrdering Facility: [facility] Address: [address] [place] [address] Performed By: #### 5 7021-8 ####[facility]ATORYCLIA [id number] [address] [place] Neutrophils (Bld) [#/Vol] 7.19 10*3/uL Normal 1.45-7.50 [facility] Comment on above: Order Comment: Speci men Type: BLOOD SPECIMENOrdering Facility: [facility] Address: [address] [place] [address] Performed By: #### 5 7021-8 ####[facility]ORATORYCLIA [id number] [place] [address] [place] Neutrophils/100 WBC (Bld) 71.1 % Normal [facility] Comment on above: Order Comment: Speci men Type: BLOOD SPECIMENOrdering Facility: [facility] Address: [address] [address] Performed By: #### 5 7021-8 ####[facility]ATORYCLIA [id number] [address] [place] Nucleated RBC (Bld) [#/Vol] 10*3/uL Normal <0.01 [facility] Comment on above: Order Comment: Speci men Type: BLOOD SPECIMENOrdering Facility: [facility] Address: [address] [place] [address] Performed By: #### 5 7021-8 ####[facility]ATORYCLIA [id number] [address] Nucleated RBC/100 WBC (Bld) [Ratio] 0.0 /100 WBC Normal [facility] Comment on above: Order Comment: Speci men Type: BLOOD SPECIMENOrdering Facility: [facility] Address: [address] [place] [address] Performed By: #### 5 7021-8 ####[facility]ATORYCLIA [id number] [address] Platelet mean volume (Bld) [Entitic vol] 10.3 fL Normal 9.0-12.7 [facility] Comment on above: Order Comment: Speci men Type: BLOOD SPECIMENOrdering Facility: [facility] Address: [address] Performed By: #### 5 7021-8 ####[facility]ATORYCLIA [id number] [address] [place] Platelets (Bld) [#/Vol] 403 10*3/uL High 150-400 [facility] Comment on above: Order Comment: Speci men Type: BLOOD SPECIMENOrdering Facility: [facility] Address: [address] [place], [place] [address] Performed By: #### 5 7021-8 ####[facility]ATORYCLIA [id number] [place] [address] [place] RBC (Bld) [#/Vol] 3.40 10*6/uL Low 4.20-6.00 [facility] Comment on above: Order Comment: Speci men Type: BLOOD SPECIMENOrdering Facility: [facility] Address: [address] [place] [address] Performed By: #### 5 7021-8 ####[facility]ATORYCLIA [id number] [place] [address] [place] WBC (Bld) [#/Vol] 10.12 10*3/uL Normal 3.70-11.00 [facility] Comment on above: Order Comment: Speci men Type: BLOOD SPECIMENOrdering Facility: [facility] Address: [address] [place] [address] Performed By: #### 5 7021-8 ####[facility]ATORYCLIA [id number] [address] [place] Magnesium SerPl-mCncon 07-18 Magnesium [Mass/Vol] 2.4 mg/dL High 1.7-2.3 [facility] Comment on above: Order Comment: Speci men Type: BLOOD SPECIMENOrdering Facility: [facility] Address: [address] [place] [address] Performed By: #### 2 4321-2, 47838-2, 2777-1 ####[facility]ATORYCLIA [id number] [place] [address] [place] NURSING PROGon 07-18-2021 NURSING PROG Normal [facility] NURSING PROG Normal [facility] Phosphate SerPl-mCncon 07-18 Phosphate [Mass/Vol] 3.9 mg/dL Normal 2.7-4.8 [facility] Comment on above: Order Comment: Speci men Type: BLOOD SPECIMENOrdering Facility: [facility] Address: [address] [place] [address] Performed By: #### 2 4321-2, 44814-7, 2777-1 ####[facility]ATORYCLIA [id number] [address] THERAPY NTon 07-18-2021 THERAPY NT Normal [facility] aPTT PPPon 07-18-2021 aPTT Coag (PPP) [Time] 52.3 s High 23.0-32.[address] [facility] Comment on above: Order Comment: Speci men Type: BLOOD SPECIMENOrdering Facility: [facility] Address: [address] [place] [address] Performed By: #### 1 4979-9 ####[facility]ATORYCLIA [id number] [address] CBC W Auto Differential pane l (Bld)on 07-17-2021 Basophils (Bld) [#/Vol] 0.05 10*3/uL Normal <0.11 [facility] Comment on above: Order Comment: Speci men Type: BLOOD SPECIMENOrdering Facility: [facility] Address: [address] [place] [address] Performed By: #### 5 7021-8 ####[facility]ATORYCLIA [id number] [address] Basophils/100 WBC (Bld) 0.5 % Normal [facility] Comment on above: Order Comment: Speci men Type: BLOOD SPECIMENOrdering Facility: [facility] Address: [address] [place] [address] Performed By: #### 5 7021-8 ####[facility]ATORYCLIA [id number] [address] Differential cell count method Nom (Bld) Auto Normal [facility] Comment on above: Order Comment: Speci men Type: BLOOD SPECIMENOrdering Facility: [facility] Address: [address] [place] [address] Performed By: #### 5 7021-8 ####[facility]ORYCLIA [id number] [address] [place] Eosinophils (Bld) [#/Vol] 0.32 10*3/uL Normal <0.46 [facility] Comment on above: Order Comment: Speci men Type: BLOOD SPECIMENOrdering Facility: [facility] Address: [address] [address] Performed By: #### 5 7021-8 ####[facility]ATORYCLIA [id number] [address] [place] Eosinophils/100 WBC (Bld) 3.4 % Normal [facility] Comment on above: Order Comment: Speci men Type: BLOOD SPECIMENOrdering Facility: [facility] Address: [address] [place] [address] Performed By: #### 5 7021-8 ####[facility]ATORYCLIA [id number] [address] Erythrocyte distribution width (RBC) [Ratio] 16.6 % High 11.5-15.0 [facility] Comment on above: Order Comment: Speci men Type: BLOOD SPECIMENOrdering Facility: [facility] Address: [address] [place] [address] Performed By: #### 5 7021-8 ####[facility]ATORYCLIA [id number] [address] [place] Hematocrit (Bld) [Volume fraction] 30.7 % Low 39.0-51.0 [facility] Comment on above: Order Comment: Speci men Type: BLOOD SPECIMENOrdering Facility: [facility] Address: [address] [address] Performed By: #### 5 7021-8 ####[facility]ATORYCLIA [id number] [address] [place] Hemoglobin (Bld) [Mass/Vol] 9.0 g/dL Low 13.0-17.0 [facility] Comment on above: Order Comment: Speci men Type: BLOOD SPECIMENOrdering Facility: [facility] Address: [address] [place], [place] [address] Performed By: #### 5 7021-8 ####[facility]ATORYCLIA [id number] [address] IMMATURE GRAN % 0.6 % Normal [facility] Comment on above: Order Comment: Speci men Type: BLOOD SPECIMENOrdering Facility: [facility] Address: [address] [place] [address] Performed By: #### 5 7021-8 ####[facility]ATORYCLIA [id number] [address] IMMATURE GRAN ABS 0.06 k/uL Normal <0.10 [facility] Comment on above: Order Comment: Speci men Type: BLOOD SPECIMENOrdering Facility: [facility] Address: [address] [place] [address] Performed By: #### 5 7021-8 ####[facility]ATORYCLIA [id number] [address] Lymphocytes (Bld) [#/Vol] 1.61 10*3/uL Normal 1.00-4.00 [facility] Comment on above: Order Comment: Speci men Type: BLOOD SPECIMENOrdering Facility: [facility] Address: [address] [place] [address] Performed By: #### 5 7021-8 ####[facility]ATORYCLIA [id number] [address] Lymphocytes/100 WBC (Bld) 17.3 % Normal [facility] Comment on above: Order Comment: Speci men Type: BLOOD SPECIMENOrdering Facility: [facility] Address: [address] [place] [address] Performed By: #### 5 7021-8 ####[facility]ATORYCLIA [id number] [address] MCH (RBC) [Entitic mass] 26.9 pg Normal 26.0-34.0 [facility] Comment on above: Order Comment: Speci men Type: BLOOD SPECIMENOrdering Facility: [facility] Address: [address] [place] [address] Performed By: #### 5 7021-8 ####[facility]ATORYCLIA [id number] [address] MCHC (RBC) [Mass/Vol] 29.3 g/dL Low 30.5-36.0 [facility] Comment on above: Order Comment: Speci men Type: BLOOD SPECIMENOrdering Facility: [facility] Address: [address] [place] [address] Performed By: #### 5 7021-8 ####[facility]ORATORYCLIA [id number] [address] OF [facility] MCV (RBC) [Entitic vol] 91.9 fL Normal 80.0-100.0 [facility] Comment on above: Order Comment: Speci men Type: BLOOD SPECIMENOrdering Facility: [facility] Address: [address] [place] [address] Performed By: #### 5 7021-8 ####[facility]ATORYCLIA [id number] [address] OF [facility] Monocytes (Bld) [#/Vol] 0.61 10*3/uL Normal <0.87 [facility] Comment on above: Order Comment: Speci men Type: BLOOD SPECIMENOrdering Facility: [facility] Address: [address] [place] [address] Performed By: #### 5 7021-8 ####[facility]ATORYCLIA [id number] [address] Monocytes/100 WBC (Bld) 6.6 % Normal [facility] Comment on above: Order Comment: Speci men Type: BLOOD SPECIMENOrdering Facility: [facility] Address: [address] [place] [address] Performed By: #### 5 7021-8 ####[facility]ATORYCLIA [id number] [address] [place] Neutrophils (Bld) [#/Vol] 6.64 10*3/uL Normal 1.45-7.50 [facility] Comment on above: Order Comment: Speci men Type: BLOOD SPECIMENOrdering Facility: [facility] Address: [address] [place] [address] Performed By: #### 5 7021-8 ####[facility]ATORYCLIA [id number] [address] Neutrophils/100 WBC (Bld) 71.6 % Normal [facility] Comment on above: Order Comment: Speci men Type: BLOOD SPECIMENOrdering Facility: [facility] Address: [address] [place] [address] Performed By: #### 5 7021-8 ####[facility]ATORYCLIA [id number] [address] [place] Nucleated RBC (Bld) [#/Vol] 10*3/uL Normal <0.01 [facility] Comment on above: Order Comment: Speci men Type: BLOOD SPECIMENOrdering Facility: [facility] Address: [address] [place] [address] Performed By: #### 5 7021-8 ####[facility] LABORATORYCLIA [id number] [address] Nucleated RBC/100 WBC (Bld) [Ratio] 0.0 /100 WBC Normal [facility] Comment on above: Order Comment: Speci men Type: BLOOD SPECIMENOrdering Facility: [facility] Address: [address] [place] [address] Performed By: #### 5 7021-8 ####[facility] LABORATORYCLIA [id number] [address] Platelet mean volume (Bld) [Entitic vol] 10.1 fL Normal 9.0-12.7 [facility] Comment on above: Order Comment: Speci men Type: BLOOD SPECIMENOrdering Facility: [facility] Address: [address] [place] [address] Performed By: #### 5 7021-8 ####[facility]ATORYCLIA [id number] [address] [place] Platelets (Bld) [#/Vol] 387 10*3/uL Normal 150-400 [facility] Comment on above: Order Comment: Speci men Type: BLOOD SPECIMENOrdering Facility: [facility] Address: [address] [place] [address] Performed By: #### 5 7021-8 ####[facility]ORATORYCLIA [id number] [place] [address] [place] RBC (Bld) [#/Vol] 3.34 10*6/uL Low 4.20-6.00 [facility] Comment on above: Order Comment: Speci men Type: BLOOD SPECIMENOrdering Facility: [facility] Address: [address] [place] [address] Performed By: #### 5 7021-8 ####[facility] LABORATORYCLIA [id number] [address] OF [facility] WBC (Bld) [#/Vol] 9.29 10*3/uL Normal 3.70-11.00 [facility] Comment on above: Order Comment: Speci men Type: BLOOD SPECIMENOrdering Facility: [facility] Address: [address] [place] [address] Performed By: #### 5 7021-8 ####[facility]ATORYCLIA [id number] [address] [place] CONSULT PROGon 07-17-2021 CONSULT PROG Normal [facility] Magnesium SerPl-mCncon 07-17 Magnesium [Mass/Vol] 2.3 mg/dL Normal 1.7-2.3 [facility] Comment on above: Order Comment: Speci men Type: BLOOD SPECIMENOrdering Facility: [facility] Address: [address] [place] [address] Performed By: #### 2 777-1, 87491-5 ####[facility]ATORYCLIA [id number] [address] [place] NURSING PROGon 07-17-2021 NURSING PROG Normal [facility] NURSING PROG Normal [facility] NURSING PROG Normal [facility] Phosphate SerPl-mCncon 07-17 Phosphate [Mass/Vol] 3.6 mg/dL Normal 2.7-4.8 [facility] Comment on above: Order Comment: Speci men Type: BLOOD SPECIMENOrdering Facility: [facility] Address: [address] [place] [address] Performed By: #### 2 777-1, ####[facility]ORATORYCLIA [id number] [address] aPTT PPPon 07-17-2021 aPTT Coag (PPP) [Time] 57.2 s High 23.0-32.[address] [facility] Comment on above: Order Comment: Speci men Type: BLOOD SPECIMENOrdering Facility: [facility] Address: [address] [place] [address] Performed By: #### 1 4979-9 ####[facility]ATORYCLIA [id number] [place] [address] [place] Basic metabolic 2000 panelon 07-16-2021 Anion gap [Moles/Vol] 5 mmol/L Low 9-18 [facility] Comment on above: Order Comment: Speci men Type: BLOOD SPECIMENOrdering Facility: [facility] Address: [address] [place] [address] Performed By: #### 2 777-1, 73767-9, ####[facility]ATORYCLIA [id number] [place] [address] [place] Calcium [Mass/Vol] 9.1 mg/dL Normal 8.5-10.2 [facility] Comment on above: Order Comment: Speci men Type: BLOOD SPECIMENOrdering Facility: [facility] Address: [address] [place] [address] Performed By: #### 2 777-1, , ####[facility]ATORYCLIA [id number] [place] [address] [place] Chloride [Moles/Vol] 101 mmol/L Normal 97-105 [facility] Comment on above: Order Comment: Speci men Type: BLOOD SPECIMENOrdering Facility: [facility] Address: [address] [place] [address] Performed By: #### 2 777-1, , ####[facility]ATORYCLIA [id number] [address] STATES OF [facility] CO2 [Moles/Vol] 35 mmol/L High 22-30 [facility] Comment on above: Order Comment: Speci men Type: BLOOD SPECIMENOrdering Facility: [facility] Address: [address] [place] [address] Performed By: #### 2 777-1, , ####[facility]ORATORYCLIA [id number] [address] Creatinine [Mass/Vol] 0.73 mg/dL Normal 0.73-1.22 [facility] Comment on above: Order Comment: Speci men Type: BLOOD SPECIMENOrdering Facility: [facility] Address: [address] [place] [address] Performed By: #### 2 777-1, , ####[facility]ATORYCLIA [id number] [address] ESTIMATED GLOMERULAR FILTRATION RATE 98 mL/min/1.73m??? Normal >=60 [facility] Comment on above: Order Comment: Speci men Type: BLOOD SPECIMENOrdering Facility: [facility] Address: [address] [place] [address] Result Comment: Luzmaria mated Glomerular Filtration Rate [...] actual GFR. Performed By: #### 2 777-1, 53382-1, ####[facility]ORATORYCLIA [id number] [place] [address] [place] Glucose [Mass/Vol] 133 mg/dL High 74-99 [facility] Comment on above: Order Comment: Shira feldman Type: BLOOD SPECIMENOrdering Facility: [facility] Address: [address] [place], [place] [address] Result Comment: The [place] [employer] (ADA) provides guidance for cutoff [...] Standards of Medical Care in Diabetes 2016, [place] [employer]. Diabetes Care. 2016.39(Suppl 1). Performed By: #### 2 777-1, 70867-2, ####[facility]ATORYCLIA [id number] [place] [address] [place] Potassium [Moles/Vol] 4.2 mmol/L Normal 3.7-5.1 [facility] Comment on above: Order Comment: Shira feldman Type: BLOOD SPECIMENOrdering Facility: [facility] Address: [address] [place] [address] Performed By: #### 2 777-1, 25562-3, ####[facility]ORATORYCLIA [id number] [place] [address] [place] Sodium [Moles/Vol] 141 mmol/L Normal 136-144 [facility] Comment on above: Order Comment: Shira feldman Type: BLOOD SPECIMENOrdering Facility: [facility] Address: [address] [place] [address] Performed By: #### 2 777-1, 16136-2, ####[facility]ORATORYCLIA [id number] [address] STATES [facility] Urea nitrogen [Mass/Vol] 21 mg/dL Normal 9-24 [facility] Comment on above: Order Comment: Speci men Type: BLOOD SPECIMENOrdering Facility: [facility] Address: [address] [place] [address] Performed By: #### 2 777-1, 29995-5, ####[facility]ORATORYCLIA [id number] [address] STATES OF [facility] CBC W Auto Differential pane l (Bld)on 07-16-2021 Basophils (Bld) [#/Vol] 0.06 10*3/uL Normal <0.11 [facility] Comment on above: Order Comment: Speci men Type: BLOOD SPECIMENOrdering Facility: [facility] Address: [address] [place] [address] Performed By: #### 5 7021-8 ####[facility]ORATORYCLIA [id number] [address] [place] Basophils/100 WBC (Bld) 0.7 % Normal [facility] Comment on above: Order Comment: Speci men Type: BLOOD SPECIMENOrdering Facility: [facility] Address: [address] [place] [address] Performed By: #### 5 7021-8 ####[facility]ORATORYCLIA [id number] [address] [place] [facility] Differential cell count method Nom (Bld) Auto Normal [facility] Comment on above: Order Comment: Speci men Type: BLOOD SPECIMENOrdering Facility: [facility] Address: [address] [place] [address] Performed By: #### 5 7021-8 ####[facility]ATORYCLIA [id number] [address] [place] Eosinophils (Bld) [#/Vol] 0.35 10*3/uL Normal <0.46 [facility] Comment on above: Order Comment: Speci men Type: BLOOD SPECIMENOrdering Facility: [facility] Address: [address] [address] Performed By: #### 5 7021-8 ####[facility]ORATORYCLIA [id number] [address] [place] Eosinophils/100 WBC (Bld) 3.9 % Normal [facility] Comment on above: Order Comment: Speci men Type: BLOOD SPECIMENOrdering Facility: [facility] Address: [address] [place] [address] Performed By: #### 5 7021-8 ####[facility]ORATORYCLIA [id number] [address] Erythrocyte distribution width (RBC) [Ratio] 16.5 % High 11.5-15.0 [facility] Comment on above: Order Comment: Speci men Type: BLOOD SPECIMENOrdering Facility: [facility] Address: [address] [place] [address] Performed By: #### 5 7021-8 ####[facility]ORATORYCLIA [id number] [address] OF [facility] Hematocrit (Bld) [Volume fraction] 30.9 % Low 39.0-51.0 [facility] Comment on above: Order Comment: Speci men Type: BLOOD SPECIMENOrdering Facility: [facility] Address: [address] [place] [address] Performed By: #### 5 7021-8 ####[facility]ORATORYCLIA [id number] [address] [place] Hemoglobin (Bld) [Mass/Vol] 9.1 g/dL Low 13.0-17.0 [facility] Comment on above: Order Comment: Speci men Type: BLOOD SPECIMENOrdering Facility: [facility] Address: [address] [address] Performed By: #### 5 7021-8 ####[facility]ORATORYCLIA [id number] [address] IMMATURE GRAN % 0.4 % Normal [facility] Comment on above: Order Comment: Speci men Type: BLOOD SPECIMENOrdering Facility: [facility] Address: [address] [place] [address] Performed By: #### 5 7021-8 ####[facility]ATORYCLIA [id number] [address] IMMATURE GRAN ABS 0.04 k/uL Normal <0.10 [facility] Comment on above: Order Comment: Speci men Type: BLOOD SPECIMENOrdering Facility: [facility] Address: [address] [place] [address] Performed By: #### 5 7021-8 ####[facility]ORATORYCLIA [id number] [address] Lymphocytes (Bld) [#/Vol] 1.35 10*3/uL Normal 1.00-4.00 [facility] Comment on above: Order Comment: Speci men Type: BLOOD SPECIMENOrdering Facility: [facility] Address: [address] [place] [address] Performed By: #### 5 7021-8 ####[facility]ORATORYCLIA [id number] [address] Lymphocytes/100 WBC (Bld) 15.0 % Normal [facility] Comment on above: Order Comment: Speci men Type: BLOOD SPECIMENOrdering Facility: [facility] Address: [address] [place] [address] Performed By: #### 5 7021-8 ####[facility]ORATORYCLIA [id number] [address] MCH (RBC) [Entitic mass] 27.1 pg Normal 26.0-34.0 [facility] Comment on above: Order Comment: Speci men Type: BLOOD SPECIMENOrdering Facility: [facility] Address: [address] [place] [address] Performed By: #### 5 7021-8 ####[facility]ORATORYCLIA [id number] [address] MCHC (RBC) [Mass/Vol] 29.4 g/dL Low 30.5-36.0 [facility] Comment on above: Order Comment: Speci men Type: BLOOD SPECIMENOrdering Facility: [facility] Address: [address] [place] [address] Performed By: #### 5 7021-8 ####[facility]ORATORYCLIA [id number] [address] MCV (RBC) [Entitic vol] 92.0 fL Normal 80.0-100.0 [facility] Comment on above: Order Comment: Speci men Type: BLOOD SPECIMENOrdering Facility: [facility] Address: [address] [place] [address] Performed By: #### 5 7021-8 ####[facility]ORATORYCLIA [id number] [address] Monocytes (Bld) [#/Vol] 0.53 10*3/uL Normal <0.87 [facility] Comment on above: Order Comment: Speci men Type: BLOOD SPECIMENOrdering Facility: [facility] Address: [address] [place] [address] Performed By: #### 5 7021-8 ####[facility]ORATORYCLIA [id number] [address] Monocytes/100 WBC (Bld) 5.9 % Normal [facility] Comment on above: Order Comment: Speci men Type: BLOOD SPECIMENOrdering Facility: [facility] Address: [address] [place] [address] Performed By: #### 5 7021-8 ####[facility] LABORATORYCLIA [id number] [place] [address] [place] Neutrophils (Bld) [#/Vol] 6.67 10*3/uL Normal 1.45-7.50 [facility] Comment on above: Order Comment: Speci men Type: BLOOD SPECIMENOrdering Facility: [facility] Address: [address] [place] [address] Performed By: #### 5 7021-8 ####[facility]ORATORYCLIA [id number] [address] [place] Neutrophils/100 WBC (Bld) 74.1 % Normal [facility] Comment on above: Order Comment: Speci men Type: BLOOD SPECIMENOrdering Facility: [facility] Address: [address] [place] [address] Performed By: #### 5 7021-8 ####[facility]ORATORYCLIA [id number] [address] [place] Nucleated RBC (Bld) [#/Vol] 10*3/uL Normal <0.01 [facility] Comment on above: Order Comment: Speci men Type: BLOOD SPECIMENOrdering Facility: [facility] Address: [address] [place] [address] Performed By: #### 5 7021-8 ####[facility]ORATORYCLIA [id number] [address] [place] Nucleated RBC/100 WBC (Bld) [Ratio] 0.0 /100 WBC Normal [facility] Comment on above: Order Comment: Speci men Type: BLOOD SPECIMENOrdering Facility: [facility] Address: [address] [place] [address] Performed By: #### 5 7021-8 ####[facility]ORATORYCLIA [id number] [address] [place] Platelet mean volume (Bld) [Entitic vol] 9.9 fL Normal 9.0-12.7 [facility] Comment on above: Order Comment: Speci men Type: BLOOD SPECIMENOrdering Facility: [facility] Address: [address] [place] [address] Performed By: #### 5 7021-8 ####[facility]ATORYCLIA [id number] [address] [place] Platelets (Bld) [#/Vol] 391 10*3/uL Normal 150-400 [facility] Comment on above: Order Comment: Speci men Type: BLOOD SPECIMENOrdering Facility: [facility] Address: [address] [place] [address] Performed By: #### 5 7021-8 ####[facility]ORATORYCLIA [id number] [place] [address] [place] RBC (Bld) [#/Vol] 3.36 10*6/uL Low 4.20-6.00 [facility] Comment on above: Order Comment: Speci men Type: BLOOD SPECIMENOrdering Facility: [facility] Address: [address] [place] [address] Performed By: #### 5 7021-8 ####[facility]ORATORYCLIA [id number] [address] WBC (Bld) [#/Vol] 9.00 10*3/uL Normal 3.70-11.00 [facility] Comment on above: Order Comment: Speci men Type: BLOOD SPECIMENOrdering Facility: [facility] Address: [address] [place] [address] Performed By: #### 5 7021-8 ####[facility]ORATORYCLIA [id number] [address] [place] CONSULT PROGon 07-16-2021 CONSULT PROG Normal [facility] CONSULT PROG Normal [facility] Magnesium SerPl-mCncon 07-16 Magnesium [Mass/Vol] 2.3 mg/dL Normal 1.7-2.3 [facility] Comment on above: Order Comment: Speci men Type: BLOOD SPECIMENOrdering Facility: [facility] Address: [address] [place] [address] Performed By: #### 2 777-1, 55492-8, 63759-5 ####[facility]ATORYCLIA [id number] [address] [place] NURSING PROGon 07-16-2021 NURSING PROG Normal [facility] Phosphate SerPl-mCncon 07-16 Phosphate [Mass/Vol] 3.6 mg/dL Normal 2.7-4.8 [facility] Comment on above: Order Comment: Speci men Type: BLOOD SPECIMENOrdering Facility: [facility] Address: [address] [place] [address] Performed By: #### 2 777-1, 03471-0, 57225-9 ####[facility]ORATORYCLIA [id number] [address] Vancomycin random [Mass/Vol] on 07-16-2021 Vancomycin [Mass/Vol] 16.9 ug/mL Normal 10.0-20.0 [facility] Comment on above: Order Comment: Speci men Type: BLOOD SPECIMENOrdering Facility: [facility] Address: [address] [place] [address] Result Comment: Refe rence ranges and high/low indicator flags are provided as general guidelines only. The treating physician must determine appropriate target levels/dosing based on the specific clinical situation. Performed By: #### 4 091-5 ####[facility]ATORYCLIA [id number] [address] aPTT PPPon 07-16-2021 aPTT Coag (PPP) [Time] 57.2 s High 23.0-32.[address] [facility] Comment on above: Order Comment: Speci men Type: BLOOD SPECIMENOrdering Facility: [facility] Address: [address] [place] [address] Performed By: #### 1 4979-9 ####[facility]ATORYCLIA [id number] [address] [place] ALLIED HEALTHon 07-15-2021 ALLIED HEALTH Normal [facility] Basic metabolic 2000 panelon 07-15-2021 Anion gap [Moles/Vol] 11 mmol/L Normal 9-18 [facility] Comment on above: Order Comment: Speci men Type: BLOOD SPECIMENOrdering Facility: [facility] Address: [address] [place], [place] [address] Performed By: #### 2 4321-2, , 2776-05 ####[facility]ORATORYCLIA [id number] [place] [address] [place] Calcium [Mass/Vol] 8.8 mg/dL Normal 8.5-10.2 [facility] Comment on above: Order Comment: Speci men Type: BLOOD SPECIMENOrdering Facility: [facility] Address: [address] [place] [address] Performed By: #### 2 4321-2, , 2776-05 ####[facility]ATORYCLIA [id number] [place] [address] [place] Chloride [Moles/Vol] 101 mmol/L Normal 97-105 [facility] Comment on above: Order Comment: Speci men Type: BLOOD SPECIMENOrdering Facility: [facility] Address: [address] [place] [address] Performed By: #### 2 4321-2, , 2776-05 ####[facility]ATORYCLIA [id number] [place] [address] [place] CO2 [Moles/Vol] 31 mmol/L High 22-30 [facility] Comment on above: Order Comment: Speci men Type: BLOOD SPECIMENOrdering Facility: [facility] Address: [address] Performed By: #### 2 4321-2, , 2776-05 ####[facility]ORATORYCLIA [id number] [place] [address] [place] Creatinine [Mass/Vol] 0.76 mg/dL Normal 0.73-1.22 [facility] Comment on above: Order Comment: Speci men Type: BLOOD SPECIMENOrdering Facility: [facility] Address: [address] [place], [place] [address] Performed By: #### 2 4321-2, 38464-4, 2776-1 ####[facility] [id number] [address] [place] ESTIMATED GLOMERULAR FILTRATION RATE 97 mL/min/1.73m??? Normal >=60 [facility] Comment on above: Order Comment: Shira feldman Type: BLOOD SPECIMENOrdering Facility: [facility] Address: [address] [place] [address] Result Comment: Luzmaria mated Glomerular Filtration Rate [...] Performed By: #### 2 4321-2, , 2776-05 ####[facility]ATORYCLIA [id number] [place] [address] [place] Glucose [Mass/Vol] 115 mg/dL High 74-99 [facility] Comment on above: Order Comment: Shira feldman Type: BLOOD SPECIMENOrdering Facility: [facility] Address: [address] [place] [address] Result Comment: The [place] [employer] (ADA) provides guidance for cutoff [...] Standards of Medical Care in Diabetes 2016, [place] [employer]. Diabetes Care. 2016.39(Suppl 1). Performed By: #### 2 4321-2, , 2777-1 ####[facility]ITALCLIA [id number] [place] [address] [place] Potassium [Moles/Vol] 4.0 mmol/L Normal 3.7-5.1 [facility] Comment on above: Order Comment: Speci men Type: BLOOD SPECIMENOrdering Facility: [facility] Address: [address] [place] [address] Performed By: #### 2 4321-2, , 2776- ####[facility]ATORYCLIA [id number] [address] [place] Sodium [Moles/Vol] 143 mmol/L Normal 136-144 [facility] Comment on above: Order Comment: Speci men Type: BLOOD SPECIMENOrdering Facility: [facility] Address: [address] [place] [address] Performed By: #### 2 4321-2, , 2776- ####[facility]ATORYCLIA [id number] [address] [place] Urea nitrogen [Mass/Vol] 17 mg/dL Normal 9-24 [facility] Comment on above: Order Comment: Speci men Type: BLOOD SPECIMENOrdering Facility: [facility] Address: [address] [place] [address] Performed By: #### 2 4321-2, , 2776-05 ####[facility]ATORYCLIA [id number] [address] [place] CASE MANAGEMon 07-15-2021 CASE MANAGEM Normal [facility] CBC panel Auto (Bld)on 07-15 Erythrocyte distribution width (RBC) [Ratio] 16.4 % High 11.5-15.0 [facility] Comment on above: Order Comment: Speci men Type: BLOOD SPECIMENOrdering Facility: [facility] Address: [address] [place] [address] Performed By: #### 5 8410-2 ####[facility]ATORYCLIA [id number] [address] Hematocrit (Bld) [Volume fraction] 30.3 % Low 39.0-51.0 [facility] Comment on above: Order Comment: Speci men Type: BLOOD SPECIMENOrdering Facility: [facility] Address: [address] [place] [address] Performed By: #### 5 8410-2 ####[facility]ORATORYCLIA [id number] [address] OF [facility] Hemoglobin (Bld) [Mass/Vol] 9.2 g/dL Low 13.0-17.0 [facility] Comment on above: Order Comment: Speci men Type: BLOOD SPECIMENOrdering Facility: [facility] Address: [address] [place] [address] Performed By: #### 5 8410-2 ####[facility] LABORATORYCLIA [id number] [address] MCH (RBC) [Entitic mass] 28.3 pg Normal 26.0-34.0 [facility] Comment on above: Order Comment: Speci men Type: BLOOD SPECIMENOrdering Facility: [facility] Address: [address] [place] [address] Performed By: #### 5 8410-2 ####[facility] LABORATORYCLIA [id number] [address] [place] MCHC (RBC) [Mass/Vol] 30.4 g/dL Low 30.5-36.0 [facility] Comment on above: Order Comment: Speci men Type: BLOOD SPECIMENOrdering Facility: [facility] Address: [address] [place] [address] Performed By: #### 5 8410-2 ####[facility] LABORATORYCLIA [id number] [address] MCV (RBC) [Entitic vol] 93.2 fL Normal 80.0-100.0 [facility] Comment on above: Order Comment: Speci men Type: BLOOD SPECIMENOrdering Facility: [facility] Address: [address] [address] Performed By: #### 5 8410-2 ####[facility] LABORATORYCLIA [id number] [address] [place] Nucleated RBC (Bld) [#/Vol] 10*3/uL Normal <0.01 [facility] Comment on above: Order Comment: Speci men Type: BLOOD SPECIMENOrdering Facility: [facility] Address: [address] [place] [address] Performed By: #### 5 8410-2 ####[facility]ORATORYCLIA [id number] [address] [place] Platelet mean volume (Bld) [Entitic vol] 9.9 fL Normal 9.0-12.7 [facility] Comment on above: Order Comment: Speci men Type: BLOOD SPECIMENOrdering Facility: [facility] Address: [address] [place] [address] Performed By: #### 5 8410-2 ####[facility]ATORYCLIA [id number] [address] [place] Platelets (Bld) [#/Vol] 381 10*3/uL Normal 150-400 [facility] Comment on above: Order Comment: Speci men Type: BLOOD SPECIMENOrdering Facility: [facility] Address: [address] [place] [address] Performed By: #### 5 8410-2 ####[facility]ATORYCLIA [id number] [address] [place] RBC (Bld) [#/Vol] 3.25 10*6/uL Low 4.20-6.00 [facility] Comment on above: Order Comment: Speci men Type: BLOOD SPECIMENOrdering Facility: [facility] Address: [address] [place] [address] Performed By: #### 5 8410-2 ####[facility] LABORATORYCLIA [id number] [address] [place] WBC (Bld) [#/Vol] 8.80 10*3/uL Normal 3.70-11.00 [facility] Comment on above: Order Comment: Speci men Type: BLOOD SPECIMENOrdering Facility: [facility] Address: [address] [place] [address] Performed By: #### 5 8410-2 ####[facility] LABORATORYCLIA [id number] [address] OF [facility] Magnesium SerPl-mCncon 07-15 Magnesium [Mass/Vol] 2.2 mg/dL Normal 1.7-2.3 [facility] Comment on above: Order Comment: Speci men Type: BLOOD SPECIMENOrdering Facility: [facility] Address: [address] [place] [address] Performed By: #### 2 4321-2, 37086-6, 27711-04 ####[facility]ATORYCLIA [id number] [address] OF [facility] NURSING PROGon 07-15-2021 NURSING PROG Normal [facility] NURSING PROG Normal [facility] NURSING PROG Normal [facility] NUTRITIONon 07-15-2021 NUTRITION Normal [facility] Phosphate SerPl-mCncon 07-15 Phosphate [Mass/Vol] 3.4 mg/dL Normal 2.7-4.8 [facility] Comment on above: Order Comment: Speci men Type: BLOOD SPECIMENOrdering Facility: [facility] Address: [address] [place] [address] Performed By: #### 2 4321-2, 32639-7, 27711-04 ####[facility]ATORYCLIA [id number] [address] [place] THERAPY NTon 07-15-2021 THERAPY NT Normal [facility] US DVT UPPER LTon 07-15-2021 US DVT UPPER LT Normal [facility] XR CHEST 1V FRONTALon 2021 XR CHEST 1V FRONTAL Normal [facility] aPTT PPPon 07-15-2021 aPTT Coag (PPP) [Time] 59.9 s High 23.0-32.[address] [facility] Comment on above: Order Comment: Speci men Type: BLOOD SPECIMENOrdering Facility: [facility] Address: [address] [place] [address] Performed By: #### 1 4979-9 ####[facility] LABORATORYCLIA [id number] [place] [address] [place] Basic metabolic 2000 panelon 07-14-2021 Anion gap [Moles/Vol] 9 mmol/L Normal 9-18 [facility] Comment on above: Order Comment: Speci men Type: BLOOD SPECIMENOrdering Facility: [facility] Address: [address] [place] [address] Performed By: #### 1 9123-9, 2777-1, 81936-7 ####[facility]ATORYCLIA [id number] [place] [address] [place] Calcium [Mass/Vol] 8.5 mg/dL Normal 8.5-10.2 [facility] Comment on above: Order Comment: Speci men Type: BLOOD SPECIMENOrdering Facility: [facility] Address: [address] [place] [address] Performed By: #### 1 9123-9, 2777-1, 07985-3 ####[facility]ORATORYCLIA [id number] [place] [address] [place] Chloride [Moles/Vol] 99 mmol/L Normal 97-105 [facility] Comment on above: Order Comment: Speci men Type: BLOOD SPECIMENOrdering Facility: [facility] Address: [address] [place] [address] Performed By: #### 1 9123-9, 2777, 98507-1 ####[facility]ORATORYCLIA [id number] [place] [address] [place] CO2 [Moles/Vol] 31 mmol/L High 22-30 [facility] Comment on above: Order Comment: Speci men Type: BLOOD SPECIMENOrdering Facility: [facility] Address: [address] [address] Performed By: #### 1 9123-9, 2777-1, 91653-6 ####[facility]ITALIA [id number] [address] [place] Creatinine [Mass/Vol] 0.74 mg/dL Normal 0.73-1.22 [facility] Comment on above: Order Comment: Shira feldman Type: BLOOD SPECIMENOrdering Facility: [facility] Address: [address] [address] Performed By: #### 1 9123-9, 2777-, 79669-4 ####[facility] HOSPITALIA [id number] [address] STATES OF [facility] ESTIMATED GLOMERULAR FILTRATION RATE 98 mL/min/1.73m??? Normal >=60 [facility] Comment on above: Order Comment: Shira feldman Type: BLOOD SPECIMENOrdering Facility: [facility] Address: [address] [address] Result Comment: Luzmaria mated Glomerular Filtration Rate [...] GFR. Performed By: #### 1 9123-9, 2777-, 45069-6 ####[facility]PITALIA [id number] [address] [place] Glucose [Mass/Vol] 117 mg/dL High 74-99 [facility] Comment on above: Order Comment: Shira feldman Type: BLOOD SPECIMENOrdering Facility: [facility] Address: [address] [address] Result Comment: The [place] [employer] (ADA) provides guidance for cutoff [...] Standards of Medical Care in Diabetes 2016, [place] [employer]. Diabetes Care. 2016.39(Suppl 1). Performed By: #### 1 9123-9, 2777-, 01489-4 ####[facility]ORATORYCLIA [id number] [place] [address] [place] Potassium [Moles/Vol] 3.7 mmol/L Normal 3.7-5.1 [facility] Comment on above: Order Comment: Shira feldman Type: BLOOD SPECIMENOrdering Facility: [facility] Address: [address] [place] [address] Performed By: #### 1 9123-9, 2777, 39022-2 ####[facility]CL[facility] [id number] [place] [address] [place] Sodium [Moles/Vol] 139 mmol/L Normal 136-144 [facility] Comment on above: Order Comment: Shira feldman Type: BLOOD SPECIMENOrdering Facility: [facility] Address: [address] [place] [address] Performed By: #### 1 9123-9, 2777, 84988-9 ####[facility]ORATORYCLIA [id number] [place] [address] [place] Urea nitrogen [Mass/Vol] 16 mg/dL Normal 9-24 [facility] Comment on above: Order Comment: Shira feldman Type: BLOOD SPECIMENOrdering Facility: [facility] Address: [address] [place] [address] Performed By: #### 1 9123-9, 2777-, 57679-6 ####[facility]ORATORYCLIA [id number] [place] [address] [place] CBC panel Auto (Bld)on 07-14 Erythrocyte distribution width (RBC) [Ratio] 16.2 % High 11.5-15.0 [facility] Comment on above: Order Comment: Speci men Type: BLOOD SPECIMENOrdering Facility: [facility] Address: [address] [place] [address] Performed By: #### 5 8410-2 ####[facility]ORATORYCLIA [id number] [address] Hematocrit (Bld) [Volume fraction] 29.7 % Low 39.0-51.0 [facility] Comment on above: Order Comment: Speci men Type: BLOOD SPECIMENOrdering Facility: [facility] Address: [address] [place] [address] Performed By: #### 5 8410-2 ####[facility]ORATORYCLIA [id number] [address] Hemoglobin (Bld) [Mass/Vol] 8.8 g/dL Low 13.0-17.0 [facility] Comment on above: Order Comment: Speci men Type: BLOOD SPECIMENOrdering Facility: [facility] Address: [address] [place] [address] Performed By: #### 5 8410-2 ####[facility]ORATORYCLIA [id number] [address] MCH (RBC) [Entitic mass] 27.5 pg Normal 26.0-34.0 [facility] Comment on above: Order Comment: Speci men Type: BLOOD SPECIMENOrdering Facility: [facility] Address: [address] [place] [address] Performed By: #### 5 8410-2 ####[facility]ATORYCLIA [id number] [address] MCHC (RBC) [Mass/Vol] 29.6 g/dL Low 30.5-36.0 [facility] Comment on above: Order Comment: Speci men Type: BLOOD SPECIMENOrdering Facility: [facility] Address: [address] [address] Performed By: #### 5 8410-2 ####[facility]ATORYCLIA [id number] [address] MCV (RBC) [Entitic vol] 92.8 fL Normal 80.0-100.0 [facility] Comment on above: Order Comment: Speci men Type: BLOOD SPECIMENOrdering Facility: [facility] Address: [address] [place] [address] Performed By: #### 5 8410-2 ####[facility]ORATORYCLIA [id number] [address] Nucleated RBC (Bld) [#/Vol] 10*3/uL Normal <0.01 [facility] Comment on above: Order Comment: Speci men Type: BLOOD SPECIMENOrdering Facility: [facility] Address: [address] [place] [address] Performed By: #### 5 8410-2 ####[facility]ORATORYCLIA [id number] [address] [place] Platelet mean volume (Bld) [Entitic vol] 9.6 fL Normal 9.0-12.7 [facility] Comment on above: Order Comment: Speci men Type: BLOOD SPECIMENOrdering Facility: [facility] Address: [address] [place] [address] Performed By: #### 5 8410-2 ####[facility]ORATORYCLIA [id number] [address] Platelets (Bld) [#/Vol] 354 10*3/uL Normal 150-400 [facility] Comment on above: Order Comment: Speci men Type: BLOOD SPECIMENOrdering Facility: [facility] Address: [address] [place] [address] Performed By: #### 5 8410-2 ####[facility]ATORYCLIA [id number] [address] [place] RBC (Bld) [#/Vol] 3.20 10*6/uL Low 4.20-6.00 [facility] Comment on above: Order Comment: Speci men Type: BLOOD SPECIMENOrdering Facility: [facility] Address: [address] [place] [address] Performed By: #### 5 8410-2 ####[facility]ORATORYCLIA [id number] [address] OF [facility] WBC (Bld) [#/Vol] 9.41 10*3/uL Normal 3.70-11.00 [facility] Comment on above: Order Comment: Speci men Type: BLOOD SPECIMENOrdering Facility: [facility] Address: [address] [place] [address] Performed By: #### 5 8410-2 ####[facility]ATORYCLIA [id number] [address] CONSULT PROGon 07-14-2021 CONSULT PROG Normal [facility] Magnesium SerPl-ncon 07-14 Magnesium [Mass/Vol] 2.2 mg/dL Normal 1.7-2.3 [facility] Comment on above: Order Comment: Speci men Type: BLOOD SPECIMENOrdering Facility: [facility] Address: [address] [place] [address] Performed By: #### 1 9123-9, 2777-1, 76442-4 ####[facility]ATORYCLIA [id number] [address] NURSING PROGon 07-14-2021 NURSING PROG Normal [facility] Phosphate SerPl-mCncon 07-14 Phosphate [Mass/Vol] 3.6 mg/dL Normal 2.7-4.8 [facility] Comment on above: Order Comment: Speci men Type: BLOOD SPECIMENOrdering Facility: [facility] Address: [address] [place] [address] Performed By: #### 1 9123-9, 2777-1, 28936-1 ####[facility]ORATORYCLIA [id number] [address] [place] aPTT PPPon 07-14-2021 aPTT Coag (PPP) [Time] 62.9 s High 23.0-32.[address] [facility] Comment on above: Order Comment: Speci men Type: BLOOD SPECIMENOrdering Facility: [facility] Address: [address] [place] [address] Performed By: #### 1 4979-9 ####[facility]ORATORYCLIA [id number] [address] aPTT Coag (PPP) [Time] 55.2 s High 23.0-32.[address] [facility] Comment on above: Order Comment: Speci men Type: BLOOD SPECIMENOrdering Facility: [facility] Address: [address] [place] [address] Performed By: #### 1 4979-9 ####[facility]ORATORYCLIA [id number] [address] STATES OF [facility] Basic metabolic 2000 panelon 07-13-2021 Anion gap [Moles/Vol] 10 mmol/L Normal 9-18 [facility] Comment on above: Order Comment: Speci men Type: BLOOD SPECIMENOrdering Facility: [facility] Address: [address] [place] [address] Performed By: #### 1 9123-9, 2777-1, 09797-2 ####[facility]ATORYCLIA [id number] [place] [address] [place] Calcium [Mass/Vol] 8.5 mg/dL Normal 8.5-10.2 [facility] Comment on above: Order Comment: Speci men Type: BLOOD SPECIMENOrdering Facility: [facility] Address: [address] [place] [address] Performed By: #### 1 9123-9, 2777-1, 38798-2 ####[facility]ATORYCLIA [id number] [address] [place] Chloride [Moles/Vol] 98 mmol/L Normal 97-105 [facility] Comment on above: Order Comment: Speci men Type: BLOOD SPECIMENOrdering Facility: [facility] Address: [address] [place] [address] Performed By: #### 1 9123-9, 2777, ####[facility]ATORYCLIA [id number] [address] STATES OF [facility] CO2 [Moles/Vol] 32 mmol/L High 22-30 [facility] Comment on above: Order Comment: Speci men Type: BLOOD SPECIMENOrdering Facility: [facility] Address: [address] [place] [address] Performed By: #### 1 9123-9, 27711-04, ####[facility]ORATORYCLIA [id number] [address] OF [facility] Creatinine [Mass/Vol] 0.75 mg/dL Normal 0.73-1.22 [facility] Comment on above: Order Comment: Speci men Type: BLOOD SPECIMENOrdering Facility: [facility] Address: [address] [place] [address] Performed By: #### 1 9123-9, 27711-04, ####[facility]ATORYCLIA [id number] [address] ESTIMATED GLOMERULAR FILTRATION RATE 98 mL/min/1.73m??? Normal >=60 [facility] Comment on above: Order Comment: Speci men Type: BLOOD SPECIMENOrdering Facility: [facility] Address: [address] [place] [address] Result Comment: Luzmaria mated Glomerular Filtration Rate [...] actual GFR. Performed By: #### 1 9123-9, 27711-04, 72921-2 ####[facility]ATORYCLIA [id number] [place] [address] [place] Glucose [Mass/Vol] 118 mg/dL High 74-99 [facility] Comment on above: Order Comment: Speci men Type: BLOOD SPECIMENOrdering Facility: [facility] Address: [address] [place] [address] Result Comment: The [place] [employer] (ADA) provides guidance for cutoff [...] Standards of Medical Care in Diabetes 2016, [place] [employer]. Diabetes Care. 2016.39(Suppl 1). Performed By: #### 1 9123-9, 2777, 95841-3 ####[facility]ATORYCLIA [id number] [place] [address] [place] Potassium [Moles/Vol] 3.6 mmol/L Low 3.7-5.1 [facility] Comment on above: Order Comment: Speci men Type: BLOOD SPECIMENOrdering Facility: [facility] Address: [address] [place], [place] [id number] Performed By: #### 1 9123-9, 27711-04, 47892-2 ####[facility]ATORYCLIA [id number] [place] [address] [place] Sodium [Moles/Vol] 140 mmol/L Normal 136-144 [facility] Comment on above: Order Comment: Speci men Type: BLOOD SPECIMENOrdering Facility: [facility] Address: [address] [place], [place] [address] Performed By: #### 1 9123-9, 27711-04, 47470-6 ####[facility]ATORYCLIA [id number] [place] [address] [place] Urea nitrogen [Mass/Vol] 15 mg/dL Normal 9-24 [facility] Comment on above: Order Comment: Speci men Type: BLOOD SPECIMENOrdering Facility: [facility] Address: [address] [place] [address] Performed By: #### 1 9123-9, 2777-1, 97108-4 ####[facility]ATORYCLIA [id number] [address] [place] CASE MANAGEMon 07-13-2021 CASE MANAGEM Normal [facility] CBC panel Auto (Bld)on 07-13 Erythrocyte distribution width (RBC) [Ratio] 16.2 % High 11.5-15.0 [facility] Comment on above: Order Comment: Speci men Type: BLOOD SPECIMENOrdering Facility: [facility] Address: [address] [place] [address] Performed By: #### 5 8410-2 ####[facility]ATORYCLIA [id number] [address] [place] Hematocrit (Bld) [Volume fraction] 29.5 % Low 39.0-51.0 [facility] Comment on above: Order Comment: Speci men Type: BLOOD SPECIMENOrdering Facility: [facility] Address: [address] [place] [address] Performed By: #### 5 8410-2 ####[facility]ATORYCLIA [id number] [address] [place] Hemoglobin (Bld) [Mass/Vol] 8.9 g/dL Low 13.0-17.0 [facility] Comment on above: Order Comment: Speci men Type: BLOOD SPECIMENOrdering Facility: [facility] Address: [address] [place] [address] Performed By: #### 5 8410-2 ####[facility]ATORYCLIA [id number] [address] [place] MCH (RBC) [Entitic mass] 27.8 pg Normal 26.0-34.0 [facility] Comment on above: Order Comment: Speci men Type: BLOOD SPECIMENOrdering Facility: [facility] Address: [address] [place] [address] Performed By: #### 5 8410-2 ####[facility]ATORYCLIA [id number] [address] MCHC (RBC) [Mass/Vol] 30.2 g/dL Low 30.5-36.0 [facility] Comment on above: Order Comment: Speci men Type: BLOOD SPECIMENOrdering Facility: [facility] Address: [address] [place] [address] Performed By: #### 5 8410-2 ####[facility]ATORYCLIA [id number] [address] MCV (RBC) [Entitic vol] 92.2 fL Normal 80.0-100.0 [facility] Comment on above: Order Comment: Speci men Type: BLOOD SPECIMENOrdering Facility: [facility] Address: [address] [place] [address] Performed By: #### 5 8410-2 ####[facility]ATORYCLIA [id number] [address] Nucleated RBC (Bld) [#/Vol] 10*3/uL Normal <0.01 [facility] Comment on above: Order Comment: Speci men Type: BLOOD SPECIMENOrdering Facility: [facility] Address: [address] [place] [address] Performed By: #### 5 8410-2 ####[facility]ATORYCLIA [id number] [address] Platelet mean volume (Bld) [Entitic vol] 9.8 fL Normal 9.0-12.7 [facility] Comment on above: Order Comment: Speci men Type: BLOOD SPECIMENOrdering Facility: [facility] Address: [address] [place], [place] [address] Performed By: #### 5 8410-2 ####[facility]ATORYCLIA [id number] [address] OF [facility] Platelets (Bld) [#/Vol] 356 10*3/uL Normal 150-400 [facility] Comment on above: Order Comment: Speci men Type: BLOOD SPECIMENOrdering Facility: [facility] Address: [address] [place] [address] Performed By: #### 5 8410-2 ####[facility]ATORYCLIA [id number] [address] [place] RBC (Bld) [#/Vol] 3.20 10*6/uL Low 4.20-6.00 [facility] Comment on above: Order Comment: Speci men Type: BLOOD SPECIMENOrdering Facility: [facility] Address: [address] [place] [address] Performed By: #### 5 8410-2 ####[facility]ATORYCLIA [id number] [address] OF [facility] WBC (Bld) [#/Vol] 9.20 10*3/uL Normal 3.70-11.00 [facility] Comment on above: Order Comment: Speci men Type: BLOOD SPECIMENOrdering Facility: [facility] Address: [address] [place] [address] Performed By: #### 5 8410-2 ####[facility]ATORYCLIA [id number] [address] CONSULT PROGon 07-13-2021 CONSULT PROG Normal [facility] CONSULT PROG Normal [facility] CONSULT PROG Normal [facility] Magnesium SerPl-mCncon 07-13 Magnesium [Mass/Vol] 2.1 mg/dL Normal 1.7-2.3 [facility] Comment on above: Order Comment: Speci men Type: BLOOD SPECIMENOrdering Facility: [facility] Address: [address] [place] [address] Performed By: #### 1 9123-9, 2777-1, 85544-1 ####[facility] LABORATORYCLIA [id number] [place], [place] [id number] [place] [address] [facility] Phosphate SerPl-mCncon 07-13 Phosphate [Mass/Vol] 3.7 mg/dL Normal 2.7-4.8 [facility] Comment on above: Order Comment: Speci men Type: BLOOD SPECIMENOrdering Facility: [facility] Address: [address] [place] [address] Performed By: #### 1 9123-9, 2777-1, 03947-8 ####[facility] LABORATORYCLIA [id number] [address] THERAPY NTon 07-13-2021 THERAPY NT Normal [facility] THERAPY NT Normal [facility] Vancomycin random [Mass/Vol] on 07-13-2021 Vancomycin [Mass/Vol] 31.7 ug/mL High 10.0-20.0 [facility] Comment on above: Order Comment: Speci men Type: BLOOD SPECIMENOrdering Facility: [facility] Address: [address] [place] [address] Result Comment: Refe rence ranges and high/low indicator flags are provided as general guidelines only. The treating physician must determine appropriate target levels/dosing based on the specific clinical situation. Performed By: #### 4 091-5 ####[facility]ORATORYCLIA [id number] [address] [place] aPTT PPPon 07-13-2021 aPTT Coag (PPP) [Time] 47.3 s High 23.0-32.[address] [facility] Comment on above: Order Comment: Speci francia Type: BLOOD SPECIMENOrdering Facility: [facility] Address: [address] [place] [address] Performed By: #### 1 4979-9 ####[facility] LABORATORYCLIA [id number] [address] OF [facility] aPTT Coag (PPP) [Time] 51.2 s High 23.0-32.[address] [facility] Comment on above: Order Comment: Speci men Type: BLOOD SPECIMENOrdering Facility: [facility] Address: [address] [place] [address] Performed By: #### 1 4979-9 ####[facility]ATORYCLIA [id number] [place] [address] [place] aPTT Coag (PPP) [Time] 47.5 s High 23.0-32.[address] [facility] Comment on above: Order Comment: Speci men Type: BLOOD SPECIMENOrdering Facility: [facility] Address: [address] [place] [address] Performed By: #### 1 4979-9 ####[facility]IA [id number] [place] [address] [place] Basic metabolic 2000 panelon 07-12-2021 Anion gap [Moles/Vol] 7 mmol/L Low 9-18 [facility] Comment on above: Order Comment: Speci men Type: BLOOD SPECIMENOrdering Facility: [facility] Address: [address] [place] [address] Performed By: #### 1 9123-9, 2777-1, 87071-5 ####[facility]ITALCLIA [id number] [place] [address] [place] Calcium [Mass/Vol] 8.3 mg/dL Low 8.5-10.2 [facility] Comment on above: Order Comment: Speci men Type: BLOOD SPECIMENOrdering Facility: [facility] Address: [address] [place] [address] Performed By: #### 1 9123-9, 2777-1, 43076-7 ####[facility]ATORYCLIA [id number] [place] [address] [place] Chloride [Moles/Vol] 101 mmol/L Normal 97-105 [facility] Comment on above: Order Comment: Speci men Type: BLOOD SPECIMENOrdering Facility: [facility] Address: [address] [place], [place] [address] Performed By: #### 1 9123-9, 2777, 09938-4 ####[facility]ATORYCLIA [id number] [address] STATES OF [facility] CO2 [Moles/Vol] 32 mmol/L High 22-30 [facility] Comment on above: Order Comment: Speci men Type: BLOOD SPECIMENOrdering Facility: [facility] Address: [address] [place] [address] Performed By: #### 1 9123-9, 27711-04, ####[facility]ITALCLIA [id number] [address] Creatinine [Mass/Vol] 0.70 mg/dL Low 0.73-1.22 [facility] Comment on above: Order Comment: Speci men Type: BLOOD SPECIMENOrdering Facility: [facility] Address: [address] [place] [address] Performed By: #### 1 9123-9, 27711-04, ####[facility]PITALIA [id number] [address] ESTIMATED GLOMERULAR FILTRATION RATE 100 mL/min/1.73m??? Normal >=60 [facility] Comment on above: Order Comment: Speci men Type: BLOOD SPECIMENOrdering Facility: [facility] Address: [address] [place] [address] Result Comment: Luzmaria mated Glomerular Filtration Rate [...] GFR. Performed By: #### 1 9123-9, 2777-, 56033-3 ####[facility]ATORYCLIA [id number] [address] STATES OF [facility] Glucose [Mass/Vol] 104 mg/dL High 74-99 [facility] Comment on above: Order Comment: Speci men Type: BLOOD SPECIMENOrdering Facility: [facility] Address: [address] [place], [place] [address] Result Comment: The [place] [employer] (ADA) provides guidance for cutoff [...] Standards of Medical Care in Diabetes 2016, [place] [employer]. Diabetes Care. 2016.39(Suppl 1). Performed By: #### 1 9123-9, 2777-1, 17192-5 ####[facility]ORATORYCLIA [id number] [place] [address] [place] Potassium [Moles/Vol] 3.7 mmol/L Normal 3.7-5.1 [facility] Comment on above: Order Comment: Shira feldman Type: BLOOD SPECIMENOrdering Facility: [facility] Address: [address] [place], [place] [address] Performed By: #### 1 9123-9, 2777-, 56047-3 ####[facility]ATORYCLIA [id number] [place] [address] [place] Sodium [Moles/Vol] 140 mmol/L Normal 136-144 [facility] Comment on above: Order Comment: Shira feldman Type: BLOOD SPECIMENOrdering Facility: [facility] Address: [address] [place], [place] [address] Performed By: #### 1 9123-9, 2777-, 18484-1 ####[facility]ATORYCLIA [id number] [place] [address] [place] Urea nitrogen [Mass/Vol] 12 mg/dL Normal 9-24 [facility] Comment on above: Order Comment: Speci men Type: BLOOD SPECIMENOrdering Facility: [facility] Address: [address] [place] [address] Performed By: #### 1 9123-9, 2777-1, 84624-3 ####[facility]ORATORYCLIA [id number] [address] STATES OF [facility] CBC panel Auto (Bld)on 07-12 Erythrocyte distribution width (RBC) [Ratio] 16.1 % High 11.5-15.0 [facility] Comment on above: Order Comment: Speci men Type: BLOOD SPECIMENOrdering Facility: [facility] Address: [address] [place] [address] Performed By: #### 5 8410-2 ####[facility] LABORATORYCLIA [id number] [address] STATES OF [facility] Hematocrit (Bld) [Volume fraction] 28.2 % Low 39.0-51.0 [facility] Comment on above: Order Comment: Speci men Type: BLOOD SPECIMENOrdering Facility: [facility] Address: [address] [place] [address] Performed By: #### 5 8410-2 ####[facility]ORATORYCLIA [id number] [address] STATES OF [facility] Hemoglobin (Bld) [Mass/Vol] 8.5 g/dL Low 13.0-17.0 [facility] Comment on above: Order Comment: Speci men Type: BLOOD SPECIMENOrdering Facility: [facility] Address: [address] [place] [address] Performed By: #### 5 8410-2 ####[facility]ORATORYCLIA [id number] [address] STATES [facility] MCH (RBC) [Entitic mass] 26.8 pg Normal 26.0-34.0 [facility] Comment on above: Order Comment: Speci men Type: BLOOD SPECIMENOrdering Facility: [facility] Address: [address] [place] [address] Performed By: #### 5 8410-2 ####[facility]ORATORYCLIA [id number] [address] MCHC (RBC) [Mass/Vol] 30.1 g/dL Low 30.5-36.0 [facility] Comment on above: Order Comment: Speci men Type: BLOOD SPECIMENOrdering Facility: [facility] Address: [address] [place] [address] Performed By: #### 5 8410-2 ####[facility]ORATORYCLIA [id number] [address] MCV (RBC) [Entitic vol] 89.0 fL Normal 80.0-100.0 [facility] Comment on above: Order Comment: Speci men Type: BLOOD SPECIMENOrdering Facility: [facility] Address: [address] [place] [address] Performed By: #### 5 8410-2 ####[facility]ORATORYCLIA [id number] [address] Nucleated RBC (Bld) [#/Vol] 10*3/uL Normal <0.01 [facility] Comment on above: Order Comment: Speci men Type: BLOOD SPECIMENOrdering Facility: [facility] Address: [address] [place] [address] Performed By: #### 5 8410-2 ####[facility]ORATORYCLIA [id number] [address] Platelet mean volume (Bld) [Entitic vol] 9.6 fL Normal 9.0-12.7 [facility] Comment on above: Order Comment: Speci men Type: BLOOD SPECIMENOrdering Facility: [facility] Address: [address] [place] [address] Performed By: #### 5 8410-2 ####[facility]ATORYCLIA [id number] [address] [place] Platelets (Bld) [#/Vol] 340 10*3/uL Normal 150-400 [facility] Comment on above: Order Comment: Speci men Type: BLOOD SPECIMENOrdering Facility: [facility] Address: [address] [place] [address] Performed By: #### 5 8410-2 ####[facility]ORATORYCLIA [id number] [address] OF [facility] RBC (Bld) [#/Vol] 3.17 10*6/uL Low 4.20-6.00 [facility] Comment on above: Order Comment: Speci men Type: BLOOD SPECIMENOrdering Facility: [facility] Address: [address] [place] [address] Performed By: #### 5 8410-2 ####[facility]ATORYCLIA [id number] [address] WBC (Bld) [#/Vol] 8.66 10*3/uL Normal 3.70-11.00 [facility] Comment on above: Order Comment: Speci men Type: BLOOD SPECIMENOrdering Facility: [facility] Address: [address] [place] [address] Performed By: #### 5 8410-2 ####[facility]ORATORYCLIA [id number] [address] CONSULTon 07-12-2021 CONSULT Normal [facility] CONSULT PROGon 07-12-2021 CONSULT PROG Normal [facility] Magnesium SerPl-mCncon 07-12 Magnesium [Mass/Vol] 2.1 mg/dL Normal 1.7-2.3 [facility] Comment on above: Order Comment: Speci men Type: BLOOD SPECIMENOrdering Facility: [facility] Address: [address] [place] [address] Performed By: #### 1 9123-9, 2777-1, 92723-6 ####[facility]ATORYCLIA [id number] [address] NURSING PROGon 07-12-2021 NURSING PROG Normal [facility] Phosphate SerPl-mCncon 07-12 Phosphate [Mass/Vol] 3.1 mg/dL Normal 2.7-4.8 [facility] Comment on above: Order Comment: Speci men Type: BLOOD SPECIMENOrdering Facility: [facility] Address: [address] [place] [address] Performed By: #### 1 9123-9, 2777-1, 22291-8 ####[facility]ATORYCLIA [id number] [address] THERAPY NTon 07-12-2021 THERAPY NT Normal [facility] aPTT PPPon 07-12-2021 aPTT Coag (PPP) [Time] 49.5 s High 23.0-32.[address] [facility] Comment on above: Order Comment: Speci men Type: BLOOD SPECIMENOrdering Facility: [facility] Address: [address] [place] [address] Performed By: #### 1 4979-9 ####[facility]ATORYCLIA [id number] [address] aPTT Coag (PPP) [Time] 68.0 s High 23.0-32.[address] [facility] Comment on above: Order Comment: Speci men Type: BLOOD SPECIMENOrdering Facility: [facility] Address: [address] [place] [address] Performed By: #### 1 4979-9 ####[facility]ATORYCLIA [id number] [address] aPTT Coag (PPP) [Time] 80.0 s High 23.0-32.[address] [facility] Comment on above: Order Comment: Speci men Type: BLOOD SPECIMENOrdering Facility: [facility] Address: [address] [place] [address] Performed By: #### 1 4979-9 ####[facility]ORATORYCLIA [id number] [address] CASE MGT INIT ASSESon 2021 CASE MGT INIT ASSES Normal [facility] CBC panel Auto (Bld)on 07-11 Erythrocyte distribution width (RBC) [Ratio] 16.3 % High 11.5-15.0 [facility] Comment on above: Order Comment: Speci men Type: BLOOD SPECIMENOrdering Facility: [facility] Address: [address] [place] [address] Performed By: #### 5 8410-2 ####[facility]ATORYCLIA [id number] [address] Hematocrit (Bld) [Volume fraction] 28.3 % Low 39.0-51.0 [facility] Comment on above: Order Comment: Speci men Type: BLOOD SPECIMENOrdering Facility: [facility] Address: [address] [place] [address] Performed By: #### 5 8410-2 ####[facility]ORATORYCLIA [id number] [address] OF [facility] Hemoglobin (Bld) [Mass/Vol] 8.8 g/dL Low 13.0-17.0 [facility] Comment on above: Order Comment: Speci men Type: BLOOD SPECIMENOrdering Facility: [facility] Address: [address] [place] [address] Performed By: #### 5 8410-2 ####[facility]ATORYCLIA [id number] [address] [place] MCH (RBC) [Entitic mass] 27.4 pg Normal 26.0-34.0 [facility] Comment on above: Order Comment: Speci men Type: BLOOD SPECIMENOrdering Facility: [facility] Address: [address] [place] [address] Performed By: #### 5 8410-2 ####[facility]ATORYCLIA [id number] [address] [place] MCHC (RBC) [Mass/Vol] 31.1 g/dL Normal 30.5-36.0 [facility] Comment on above: Order Comment: Speci men Type: BLOOD SPECIMENOrdering Facility: [facility] Address: [address] [address] Performed By: #### 5 8410-2 ####[facility]ORATORYCLIA [id number] [address] MCV (RBC) [Entitic vol] 88.2 fL Normal 80.0-100.0 [facility] Comment on above: Order Comment: Speci men Type: BLOOD SPECIMENOrdering Facility: [facility] Address: [address] Performed By: #### 5 8410-2 ####[facility]ORATORYCLIA [id number] [address] [place] Nucleated RBC (Bld) [#/Vol] 10*3/uL Normal <0.01 [facility] Comment on above: Order Comment: Speci men Type: BLOOD SPECIMENOrdering Facility: [facility] Address: [address] [address] Performed By: #### 5 8410-2 ####[facility]ATORYCLIA [id number] [address] Platelet mean volume (Bld) [Entitic vol] 9.7 fL Normal 9.0-12.7 [facility] Comment on above: Order Comment: Speci men Type: BLOOD SPECIMENOrdering Facility: [facility] Address: [address] Performed By: #### 5 8410-2 ####[facility]ATORYCLIA [id number] [address] Platelets (Bld) [#/Vol] 315 10*3/uL Normal 150-400 [facility] Comment on above: Order Comment: Speci men Type: BLOOD SPECIMENOrdering Facility: [facility] Address: [address] [place] [address] Performed By: #### 5 8410-2 ####[facility]ATORYCLIA [id number] [address] [place] RBC (Bld) [#/Vol] 3.21 10*6/uL Low 4.20-6.00 [facility] Comment on above: Order Comment: Speci men Type: BLOOD SPECIMENOrdering Facility: [facility] Address: [address] [place] [address] Performed By: #### 5 8410-2 ####[facility]ATORYCLIA [id number] [address] STATES OF [facility] WBC (Bld) [#/Vol] 9.18 10*3/uL Normal 3.70-11.00 [facility] Comment on above: Order Comment: Speci men Type: BLOOD SPECIMENOrdering Facility: [facility] Address: [address] [place] [address] Performed By: #### 5 8410-2 ####[facility]ATORYCLIA [id number] [address] CONSULT PROGon 07-11-2021 CONSULT PROG Normal [facility] CT BRAIN WO IVCONon 07-12-[address] BRAIN WO IVCON Normal [facility] Magnesium SerPl-mCncon 07-11 Magnesium [Mass/Vol] 2.1 mg/dL Normal 1.7-2.3 [facility] Comment on above: Order Comment: Speci men Type: BLOOD SPECIMENOrdering Facility: [facility] Address: [address] [place] [address] Performed By: #### 1 9123-9, 2777-1 ####[facility]ATORYCLIA [id number] [address] [place] NURSING PROGon 07-11-2021 NURSING PROG Normal [facility] NURSING PROG Normal [facility] Phosphate SerPl-mCncon 07-11 Phosphate [Mass/Vol] 3.4 mg/dL Normal 2.7-4.8 [facility] Comment on above: Order Comment: Speci men Type: BLOOD SPECIMENOrdering Facility: [facility] Address: [address] [address] Performed By: #### 1 9123-9, 2777-1 ####[facility]ATORYCLIA [id number] [address] [place] THERAPY NTon 07-11-2021 THERAPY NT Normal [facility] Vancomycin random [Mass/Vol] on 07-11-2021 Vancomycin [Mass/Vol] 28.6 ug/mL High 10.0-20.0 Utr [facility] Comment on above: Order Comment: Speci men Type: BLOOD SPECIMENOrdering Facility: [facility] Address: [address] [place] [address] Result Comment: Refe rence ranges and high/low indicator flags are provided as general guidelines only. The treating physician must determine appropriate target levels/dosing based on the specific clinical situation. Performed By: #### 4 091-5 ####[facility]ATORYCLIA [id number] [address] [place] aPTT PPPon 07-11-2021 aPTT Coag (PPP) [Time] 62.0 s High 23.0-32.[address] [facility] Comment on above: Order Comment: Speci men Type: BLOOD SPECIMENOrdering Facility: [facility] Address: [address] [place] [address] Performed By: #### 1 4979-9 ####[facility]ATORYCLIA [id number] [address] STATES OF [facility] aPTT Coag (PPP) [Time] 52.7 s High 23.0-32.[address] [facility] Comment on above: Order Comment: Speci men Type: BLOOD SPECIMENOrdering Facility: [facility] Address: [address] [place] [address] Performed By: #### 1 4979-9 ####[facility]ATORYCLIA [id number] [address] OF [facility] aPTT Coag (PPP) [Time] 29.9 s Normal 23.0-32.[address] [facility] Comment on above: Order Comment: Speci men Type: BLOOD SPECIMENOrdering Facility: [facility] Address: [address] [place] [address] Performed By: #### 1 4979-9 ####[facility]ORATORYCLIA [id number] [place] [address] [place] Basic metabolic 2000 panelon 07-10-2021 Anion gap [Moles/Vol] 14 mmol/L Normal 9-18 [facility] Comment on above: Order Comment: Speci men Type: BLOOD SPECIMENOrdering Facility: [facility] Address: [address] [place] [address] Performed By: #### 1 9123-9, 2777-1, 78928-9 ####[facility]ATORYCLIA [id number] [place] [address] [place] Calcium [Mass/Vol] 8.5 mg/dL Normal 8.5-10.2 [facility] Comment on above: Order Comment: Speci men Type: BLOOD SPECIMENOrdering Facility: [facility] Address: [address] [place] [address] Performed By: #### 1 9123-9, 27771, 67799-5 ####[facility]ATORYCLIA [id number] [place] [address] [place] Chloride [Moles/Vol] 100 mmol/L Normal 97-105 [facility] Comment on above: Order Comment: Speci men Type: BLOOD SPECIMENOrdering Facility: [facility] Address: [address] [place] [address] Performed By: #### 1 9123-9, 2777-1, 03307-1 ####[facility]ATORYCLIA [id number] [place] [address] [place] CO2 [Moles/Vol] 27 mmol/L Normal 22-30 [facility] Comment on above: Order Comment: Speci men Type: BLOOD SPECIMENOrdering Facility: [facility] Address: [address] [place] [address] Performed By: #### 1 9123-9, 2777-1, 11962-9 ####[facility] HOSPITALIA [id number] [place] [address] [place] [facility] Creatinine [Mass/Vol] 0.66 mg/dL Low 0.73-1.22 [facility] Comment on above: Order Comment: Shira feldman Type: BLOOD SPECIMENOrdering Facility: [facility] Address: [address] [place] [address] Performed By: #### 1 9123-9, 2777-1, 12609-4 ####[facility] HOSPITALIA [id number] [place] [address] [place] ESTIMATED GLOMERULAR FILTRATION RATE 102 mL/min/1.73m??? Normal >=60 [facility] Comment on above: Order Comment: Shira feldman Type: BLOOD SPECIMENOrdering Facility: [facility] Address: [address] [place] [address] Result Comment: Luzmaria mated Glomerular Filtration Rate [...] GFR. Performed By: #### 1 9123-9, 2777-1, 00416-1 ####[facility] HOSPITALIA [id number] [place] [address] [place] Glucose [Mass/Vol] 93 mg/dL Normal 74-99 [facility] Comment on above: Order Comment: Shira feldman Type: BLOOD SPECIMENOrdering Facility: [facility] Address: [address] [id number] Result Comment: The [place] [employer] (ADA) provides guidance for cutoff [...] Standards of Medical Care in Diabetes 2016, [place] [employer]. Diabetes Care. 2016.39(Suppl 1). Performed By: #### 1 9123-9, 2777-1, 11167-8 ####[facility]ORATORYCLIA [id number] [address] STATES OF [facility] Potassium [Moles/Vol] 3.5 mmol/L Low 3.7-5.1 [facility] Comment on above: Order Comment: Shira feldman Type: BLOOD SPECIMENOrdering Facility: [facility] Address: [address] [place] [address] Performed By: #### 1 9123-9, 2777-, 06128-0 ####[facility]CLIA [id number] [address] Sodium [Moles/Vol] 141 mmol/L Normal 136-144 [facility] Comment on above: Order Comment: Shira feldman Type: BLOOD SPECIMENOrdering Facility: [facility] Address: [address] [address] Performed By: #### 1 9123-9, 2777-1, 86916-0 ####[facility]ITALCLIA [id number] [address] Urea nitrogen [Mass/Vol] 11 mg/dL Normal 9-24 [facility] Comment on above: Order Comment: Shira feldman Type: BLOOD SPECIMENOrdering Facility: [facility] Address: [address] [address] Performed By: #### 1 9123-9, 2777, 99848-8 ####[facility]ITALCLIA [id number] [address] OF [facility] CBC panel Auto (Bld)on 07-10 Erythrocyte distribution width (RBC) [Ratio] 16.2 % High 11.5-15.0 [facility] Comment on above: Order Comment: Speci men Type: BLOOD SPECIMENOrdering Facility: [facility] Address: [address] [place] [address] Performed By: #### 5 8410-2 ####[facility] LABORATORYCLIA [id number] [address] OF [facility] Hematocrit (Bld) [Volume fraction] 30.6 % Low 39.0-51.0 [facility] Comment on above: Order Comment: Speci men Type: BLOOD SPECIMENOrdering Facility: [facility] Address: [address] [place] [address] Performed By: #### 5 8410-2 ####[facility] LABORATORYCLIA [id number] [address] OF [facility] Hemoglobin (Bld) [Mass/Vol] 9.6 g/dL Low 13.0-17.0 [facility] Comment on above: Order Comment: Speci men Type: BLOOD SPECIMENOrdering Facility: [facility] Address: [address] [place] [address] Performed By: #### 5 8410-2 ####[facility] LABORATORYCLIA [id number] [address] STATES OF [facility] MCH (RBC) [Entitic mass] 28.3 pg Normal 26.0-34.0 [facility] Comment on above: Order Comment: Speci men Type: BLOOD SPECIMENOrdering Facility: [facility] Address: [address] [place] [address] Performed By: #### 5 8410-2 ####[facility] LABORATORYCLIA [id number] [address] [place] MCHC (RBC) [Mass/Vol] 31.4 g/dL Normal 30.5-36.0 [facility] Comment on above: Order Comment: Speci men Type: BLOOD SPECIMENOrdering Facility: [facility] Address: [address] [place] [address] Performed By: #### 5 8410-2 ####[facility] LABORATORYCLIA [id number] [address] [place] MCV (RBC) [Entitic vol] 90.3 fL Normal 80.0-100.0 [facility] Comment on above: Order Comment: Speci men Type: BLOOD SPECIMENOrdering Facility: [facility] Address: [address] [place] [address] Performed By: #### 5 8410-2 ####[facility] LABORATORYCLIA [id number] [address] Nucleated RBC (Bld) [#/Vol] 10*3/uL Normal <0.01 [facility] Comment on above: Order Comment: Speci men Type: BLOOD SPECIMENOrdering Facility: [facility] Address: [address] [place] [address] Performed By: #### 5 8410-2 ####[facility] LABORATORYCLIA [id number] [address] STATES [facility] Platelet mean volume (Bld) [Entitic vol] 9.7 fL Normal 9.0-12.7 [facility] Comment on above: Order Comment: Speci men Type: BLOOD SPECIMENOrdering Facility: [facility] Address: [address] [place] [address] Performed By: #### 5 8410-2 ####[facility]ORATORYCLIA [id number] [address] [place] Platelets (Bld) [#/Vol] 306 10*3/uL Normal 150-400 [facility] Comment on above: Order Comment: Speci men Type: BLOOD SPECIMENOrdering Facility: [facility] Address: [address] [place] [address] Performed By: #### 5 8410-2 ####[facility]ATORYCLIA [id number] [address] [place] RBC (Bld) [#/Vol] 3.39 10*6/uL Low 4.20-6.00 [facility] Comment on above: Order Comment: Speci men Type: BLOOD SPECIMENOrdering Facility: [facility] Address: [address] [place] [address] Performed By: #### 5 8410-2 ####[facility]ORATORYCLIA [id number] [address] [place] WBC (Bld) [#/Vol] 9.81 10*3/uL Normal 3.70-11.00 [facility] Comment on above: Order Comment: Speci men Type: BLOOD SPECIMENOrdering Facility: [facility] Address: [address] [place] [address] Performed By: #### 5 8410-2 ####[facility]ORATORYCLIA [id number] [address] [place] CONSULTon 07-10-2021 CONSULT Normal [facility] CONSULT Normal [facility] Magnesium SerPl-ncon 07-10 Magnesium [Mass/Vol] 1.9 mg/dL Normal 1.7-2.3 [facility] Comment on above: Order Comment: Speci men Type: BLOOD SPECIMENOrdering Facility: [facility] Address: [address] [place] [address] Performed By: #### 1 9123-9, 2777-1, 21515-1 ####[facility]ATORYCLIA [id number] [address] [place] NURSING PROGon 07-10-2021 NURSING PROG Normal [facility] NURSING PROG Normal [facility] NUTRITIONon 07-10-2021 NUTRITION Normal [facility] Phosphate SerPl-mCncon 07-10 Phosphate [Mass/Vol] 3.6 mg/dL Normal 2.7-4.8 [facility] Comment on above: Order Comment: Speci men Type: BLOOD SPECIMENOrdering Facility: [facility] Address: [address] [place] [address] Performed By: #### 1 9123-9, 2777-1, 96339-6 ####[facility]ORATORYCLIA [id number] [place] [address] [place] US DVT LOWER BILon US DVT LOWER RAINER Normal [facility] aPTT PPPon 07-10-2021 aPTT Coag (PPP) [Time] 28.8 s Normal 23.0-32.[address] [facility] Comment on above: Order Comment: Speci men Type: BLOOD SPECIMENOrdering Facility: [facility] Address: [address] [place] [address] Performed By: #### 1 4979-9 ####[facility]ORATORYCLIA [id number] [address] [place] aPTT Coag (PPP) [Time] 28.4 s Normal 23.0-32.[address] [facility] Comment on above: Order Comment: Speci men Type: BLOOD SPECIMENOrdering Facility: [facility] Address: [address] [place] [address] Performed By: #### 1 4979-9 ####[facility]ORATORYCLIA [id number] [place] [address] [place] ALLIED HEALTHon 07-09-2021 ALLIED HEALTH Normal [facility] Basic metabolic 2000 panelon 07-09-2021 Anion gap [Moles/Vol] 9 mmol/L Normal 9-18 [facility] Comment on above: Order Comment: Speci men Type: BLOOD SPECIMENOrdering Facility: [facility] Address: [address] [place] [address] Performed By: #### 1 9123-9, 2777-, 00586-5 ####[facility]ATORYCLIA [id number] [place] [address] [place] Calcium [Mass/Vol] 8.3 mg/dL Low 8.5-10.2 [facility] Comment on above: Order Comment: Speci men Type: BLOOD SPECIMENOrdering Facility: [facility] Address: [address] [place] [address] Performed By: #### 1 9123-9, 2777-1, 36730-8 ####[facility]ORATORYCLIA [id number] [address] STATES OF [facility] Chloride [Moles/Vol] 100 mmol/L Normal 97-105 [facility] Comment on above: Order Comment: Speci men Type: BLOOD SPECIMENOrdering Facility: [facility] Address: [address] [place] [address] Performed By: #### 1 9123-9, 2777-1, 17851-3 ####[facility]ORATORYCLIA [id number] [address] CO2 [Moles/Vol] 29 mmol/L Normal 22-30 [facility] Comment on above: Order Comment: Speci men Type: BLOOD SPECIMENOrdering Facility: [facility] Address: [address] [place] [address] Performed By: #### 1 9123-9, 2777-1, 85391-2 ####[facility] [id number] [address] Creatinine [Mass/Vol] 0.61 mg/dL Low 0.73-1.22 [facility] Comment on above: Order Comment: Speci men Type: BLOOD SPECIMENOrdering Facility: [facility] Address: [address] [place] [address] Performed By: #### 1 9123-9, 2777-1, 92605-6 ####[facility]ORATORYCLIA [id number] [address] ESTIMATED GLOMERULAR FILTRATION RATE 104 mL/min/1.73m??? Normal >=60 [facility] Comment on above: Order Comment: Speci men Type: BLOOD SPECIMENOrdering Facility: [facility] Address: [address] [place] [address] Result Comment: Luzmaria mated Glomerular Filtration Rate [...] GFR. Performed By: #### 1 9123-9, 2777-, 79972-3 ####[facility]ATORYCLIA [id number] [place] [address] [place] Glucose [Mass/Vol] 106 mg/dL High 74-99 [facility] Comment on above: Order Comment: Shira feldman Type: BLOOD SPECIMENOrdering Facility: [facility] Address: [address] [place] [address] Result Comment: The [place] [employer] (ADA) provides guidance for cutoff [...] Standards of Medical Care in Diabetes 2016, [place] [employer]. Diabetes Care. 2016.39(Suppl 1). Performed By: #### 1 9123-9, 2777-, 29467-1 ####[facility]ORATORYCLIA [id number] [place] [address] [place] Potassium [Moles/Vol] 3.6 mmol/L Low 3.7-5.1 [facility] Comment on above: Order Comment: Shira feldman Type: BLOOD SPECIMENOrdering Facility: [facility] Address: [address] [id number] Performed By: #### 1 9123-9, 2777-, 43332-5 ####[facility]ORATORYCLIA [id number] [place] [address] [place] Sodium [Moles/Vol] 138 mmol/L Normal 136-144 [facility] Comment on above: Order Comment: Shira feldman Type: BLOOD SPECIMENOrdering Facility: [facility] Address: [address] [place] [address] Performed By: #### 1 9123-9, 2777-1, 98418-7 ####[facility]ORATORYCLIA [id number] [address] [place] [facility] Urea nitrogen [Mass/Vol] 12 mg/dL Normal 9-24 [facility] Comment on above: Order Comment: Speci men Type: BLOOD SPECIMENOrdering Facility: [facility] Address: [address] [place] [address] Performed By: #### 1 9123-9, 2777-, 02298-7 ####[facility]ORATORYCLIA [id number] [address] CBC panel Auto (Bld)on 07-09 Erythrocyte distribution width (RBC) [Ratio] 16.2 % High 11.5-15.0 [facility] Comment on above: Order Comment: Speci men Type: BLOOD SPECIMENOrdering Facility: [facility] Address: [address] [place] [address] Performed By: #### 5 8410-2 ####[facility]ATORYCLIA [id number] [address] [place] Hematocrit (Bld) [Volume fraction] 29.0 % Low 39.0-51.0 [facility] Comment on above: Order Comment: Speci men Type: BLOOD SPECIMENOrdering Facility: [facility] Address: [address] [place] [address] Performed By: #### 5 8410-2 ####[facility]ATORYCLIA [id number] [address] [place] Hemoglobin (Bld) [Mass/Vol] 8.8 g/dL Low 13.0-17.0 [facility] Comment on above: Order Comment: Speci men Type: BLOOD SPECIMENOrdering Facility: [facility] Address: [address] [place] [address] Performed By: #### 5 8410-2 ####[facility]ATORYCLIA [id number] [address] MCH (RBC) [Entitic mass] 27.0 pg Normal 26.0-34.0 [facility] Comment on above: Order Comment: Speci men Type: BLOOD SPECIMENOrdering Facility: [facility] Address: [address] [place] [address] Performed By: #### 5 8410-2 ####[facility]ATORYCLIA [id number] [address] MCHC (RBC) [Mass/Vol] 30.3 g/dL Low 30.5-36.0 [facility] Comment on above: Order Comment: Speci men Type: BLOOD SPECIMENOrdering Facility: [facility] Address: [address] [place] [address] Performed By: #### 5 8410-2 ####[facility]ORATORYCLIA [id number] [address] MCV (RBC) [Entitic vol] 89.0 fL Normal 80.0-100.0 [facility] Comment on above: Order Comment: Speci men Type: BLOOD SPECIMENOrdering Facility: [facility] Address: [address] [place] [address] Performed By: #### 5 8410-2 ####[facility]ATORYCLIA [id number] [address] Nucleated RBC (Bld) [#/Vol] 10*3/uL Normal <0.01 [facility] Comment on above: Order Comment: Speci men Type: BLOOD SPECIMENOrdering Facility: [facility] Address: [address] [place] [address] Performed By: #### 5 8410-2 ####[facility]ORATORYCLIA [id number] [address] Platelet mean volume (Bld) [Entitic vol] 9.8 fL Normal 9.0-12.7 [facility] Comment on above: Order Comment: Speci men Type: BLOOD SPECIMENOrdering Facility: [facility] Address: [address] [place] [address] Performed By: #### 5 8410-2 ####[facility]ATORYCLIA [id number] [address] Platelets (Bld) [#/Vol] 281 10*3/uL Normal 150-400 [facility] Comment on above: Order Comment: Speci men Type: BLOOD SPECIMENOrdering Facility: [facility] Address: [address] [place] [address] Performed By: #### 5 8410-2 ####[facility]ORATORYCLIA [id number] [address] RBC (Bld) [#/Vol] 3.26 10*6/uL Low 4.20-6.00 [facility] Comment on above: Order Comment: Speci men Type: BLOOD SPECIMENOrdering Facility: [facility] Address: [address] [place] [address] Performed By: #### 5 8410-2 ####[facility]ATORYCLIA [id number] [address] WBC (Bld) [#/Vol] 9.12 10*3/uL Normal 3.70-11.00 [facility] Comment on above: Order Comment: Speci men Type: BLOOD SPECIMENOrdering Facility: [facility] Address: [address] [place] [address] Performed By: #### 5 8410-2 ####[facility]ORATORYCLIA [id number] [address] CONSULT PROGon 07-09-2021 CONSULT PROG Normal [facility] CONSULT PROG Normal [facility] HISTORY PHYSICALon HISTORY PHYSICAL Normal [facility] Magnesium SerPl-mCncon 07-09 Magnesium [Mass/Vol] 1.9 mg/dL Normal 1.7-2.3 [facility] Comment on above: Order Comment: Speci men Type: BLOOD SPECIMENOrdering Facility: [facility] Address: [address] [id number] Performed By: #### 1 9123-9, 2777-1, 92056-3 ####[facility]ATORYCLIA [id number] [place] [address] [place] Phosphate SerPl-mCncon 07-09 Phosphate [Mass/Vol] 3.6 mg/dL Normal 2.7-4.8 [facility] Comment on above: Order Comment: Speci men Type: BLOOD SPECIMENOrdering Facility: [facility] Address: [address] [address] Performed By: #### 1 9123-9, 2777-1, 81833-7 ####[facility]ORATORYCLIA [id number] [address] [place] THERAPY NTon 07-09-2021 THERAPY NT Normal [facility] XR ABDOMEN 1V SUPINEon 07-09 XR ABDOMEN 1V SUPINE Normal [facility] ALLIED HEALTHon 07-08-2021 ALLIED HEALTH Normal [facility] ALLIED HEALTH Normal [facility] ALLIED HEALTH Normal [facility] ANES PRE-OPon 07-08-2021 ANES PRE-OP Normal [facility] BRIEF OP NOTon 07-08-2021 BRIEF OP NOT Normal [facility] Bacteria Bld Culton 07-09-19 22 Bacteria identified Cx Nom (Bld) CULTURE, BLOOD: No growth 5 days Normal [facility] Comment on above: Performed By: #### 6 00-7 ####[facility]ATORYCLIA [id number] [place] [address] [place] Bacteria identified Cx Nom (Bld) CULTURE, BLOOD: No growth 5 days Normal [facility] Comment on above: Performed By: #### 6 00-7 ####[facility]ATORYCLIA [id number] [place] [address] [place] Bacteria CSF Culton 07-09-19 22 Bacteria identified Cx Nom (CSF) CULTURE, CSF: No growth 14 days GRAM STAIN: No organisms seen No Polymorphonuclear Leukocytes Few Red Blood Cells Gram stain performed on cytospun specimen. Normal [facility] Comment on above: Performed By: #### 6 06-4 ####[facility]ORATORYCLIA [id number] [address] Bacteria Ur Culton 2 Bacteria identified Cx Nom (U) ORGANISM ID: 1 10,000 -<50,000 CFU/ml Proteus species Insignificant colony count. No further workup. ORGANISM ID: 2 <10,000 CFU/ml Normal urogenital chris Normal [facility] Comment on above: Performed By: #### 6 30-4 ####[facility]ORATORYCLIA [id number] [address] Bacteria Wnd Culton 07-09-19 22 Bacteria identified Cx Nom (Wound) ORGANISM ID: 1 Coagulase negative staphylococcus Growth in Enrichment Broth Only No susceptibility testing done. Call lab within 72 hours to initiate work-up if clinically indicated. GRAM STAIN: Account credited. Not performed on this specimen type. Normal [facility] Comment on above: Performed By: #### 6 462-6 ####[facility]ATORYCLIA [id number] [address] Bacteria identified Cx Nom (Wound) ORGANISM ID: 1 Rare Coagulase negative staphylococcus No susceptibility testing done. Call lab within 72 hours to initiate work-up if clinically indicated. GRAM STAIN: Account credited. Not performed on this specimen type. Normal [facility] Comment on above: Performed By: #### 6 462-6 ####[facility]ATORYCLIA [id number] [address] Bacteria identified Cx Nom (Wound) CULTURE, INTRAOPERATIVE HARDWARE: No growth 14 days GRAM STAIN: Account credited. Not performed on this specimen type. Normal [facility] Comment on above: Performed By: #### 6 462-6 ####[facility]ATORYCLIA [id number] [address] Basic metabolic 2000 panelon 07-08-2021 Anion gap [Moles/Vol] 9 mmol/L Normal 9-18 [facility] Comment on above: Order Comment: Speci men Type: BLOOD SPECIMENOrdering Facility: [facility] Address: [address] [place] [address] Performed By: #### 2 4321-2 ####[facility]ATORYCLIA [id number] [place] [address] [place] Calcium [Mass/Vol] 8.5 mg/dL Normal 8.5-10.2 [facility] Comment on above: Order Comment: Speci men Type: BLOOD SPECIMENOrdering Facility: [facility] Address: [address] [place] [address] Performed By: #### 2 4321-2 ####[facility]ATORYCLIA [id number] [place] [address] [place] Chloride [Moles/Vol] 98 mmol/L Normal 97-105 [facility] Comment on above: Order Comment: Speci men Type: BLOOD SPECIMENOrdering Facility: [facility] Address: [address] [place] [address] Performed By: #### 2 4321-2 ####[facility]ATORYCLIA [id number] [address] [place] CO2 [Moles/Vol] 31 mmol/L High 22-30 [facility] Comment on above: Order Comment: Speci men Type: BLOOD SPECIMENOrdering Facility: [facility] Address: [address] [place] [address] Performed By: #### 2 4321-2 ####[facility]ATORYCLIA [id number] [place] [address] [place] Creatinine [Mass/Vol] 0.64 mg/dL Low 0.73-1.22 [facility] Comment on above: Order Comment: Speci men Type: BLOOD SPECIMENOrdering Facility: [facility] Address: [address] [place] [address] Performed By: #### 2 4321-2 ####[facility]ORATORYCLIA [id number] [place] [address] [place] ESTIMATED GLOMERULAR FILTRATION RATE 102 mL/min/1.73m??? Normal >=60 [facility] Comment on above: Order Comment: Shira feldman Type: BLOOD SPECIMENOrdering Facility: [facility] Address: [address] [place] [address] Result Comment: Luzmaria mated Glomerular Filtration Rate [...] actual GFR. Performed By: #### 2 4321-2 ####[facility]ATORYCLIA [id number] [place] [address] [place] Glucose [Mass/Vol] 114 mg/dL High 74-99 [facility] Comment on above: Order Comment: Shira feldman Type: BLOOD SPECIMENOrdering Facility: [facility] Address: [address] [place] [address] Result Comment: The [place] [employer] (ADA) provides guidance for cutoff [...] Standards of Medical Care in Diabetes 2016, [place] [employer]. Diabetes Care. 2016.39(Suppl 1). Performed By: #### 2 4321-2 ####[facility]ATORYCLIA [id number] [place] [address] [place] Potassium [Moles/Vol] 3.4 mmol/L Low 3.7-5.1 [facility] Comment on above: Order Comment: Shira feldman Type: BLOOD SPECIMENOrdering Facility: [facility] Address: [address] [place] [address] Performed By: #### 2 4321-2 ####[facility]ATORYCLIA [id number] [address] STATES OF [facility] Sodium [Moles/Vol] 138 mmol/L Normal 136-144 [facility] Comment on above: Order Comment: Speci men Type: BLOOD SPECIMENOrdering Facility: [facility] Address: [address] [place] [address] Performed By: #### 2 4321-2 ####[facility]ATORYCLIA [id number] [address] [place] OF [facility] Urea nitrogen [Mass/Vol] 14 mg/dL Normal 9-24 [facility] Comment on above: Order Comment: Speci men Type: BLOOD SPECIMENOrdering Facility: [facility] Address: [address] [place] [address] Performed By: #### 2 4321-2 ####[facility]ATORYCLIA [id number] [address] [place] CBC W Auto Differential pane l (Bld)on 07-08-2021 Basophils (Bld) [#/Vol] 0.05 10*3/uL Normal <0.11 [facility] Comment on above: Order Comment: Speci men Type: BLOOD SPECIMENOrdering Facility: [facility] Address: [address] [place] [address] Performed By: #### 5 7021-8 ####[facility]ATORYCLIA [id number] [address] [place] Basophils/100 WBC (Bld) 0.4 % Normal [facility] Comment on above: Order Comment: Speci men Type: BLOOD SPECIMENOrdering Facility: [facility] Address: [address] [place] [address] Performed By: #### 5 7021-8 ####[facility]ATORYCLIA [id number] [place] [address] [place] Differential cell count method Nom (Bld) Auto Normal [facility] Comment on above: Order Comment: Speci men Type: BLOOD SPECIMENOrdering Facility: [facility] Address: [address] [place] [address] Performed By: #### 5 7021-8 ####[facility]ATORYCLIA [id number] [place] [address] [place] Eosinophils (Bld) [#/Vol] 0.68 10*3/uL High <0.46 [facility] Comment on above: Order Comment: Speci men Type: BLOOD SPECIMENOrdering Facility: [facility] Address: [address] [place] [address] Performed By: #### 5 7021-8 ####[facility]ATORYCLIA [id number] [address] [place] Eosinophils/100 WBC (Bld) 5.4 % Normal [facility] Comment on above: Order Comment: Speci men Type: BLOOD SPECIMENOrdering Facility: [facility] Address: [address] [place] [address] Performed By: #### 5 7021-8 ####[facility]ATORYCLIA [id number] [address] [place] Erythrocyte distribution width (RBC) [Ratio] 16.3 % High 11.5-15.0 [facility] Comment on above: Order Comment: Speci men Type: BLOOD SPECIMENOrdering Facility: [facility] Address: [address] [place] [address] Performed By: #### 5 7021-8 ####[facility] LABORATORYCLIA [id number] [place] [address] [place] Hematocrit (Bld) [Volume fraction] 35.7 % Low 39.0-51.0 [facility] Comment on above: Order Comment: Speci men Type: BLOOD SPECIMENOrdering Facility: [facility] Address: [address] [place] [address] Performed By: #### 5 7021-8 ####[facility] LABORATORYCLIA [id number] [address] OF [facility] Hemoglobin (Bld) [Mass/Vol] 10.8 g/dL Low 13.0-17.0 [facility] Comment on above: Order Comment: Speci men Type: BLOOD SPECIMENOrdering Facility: [facility] Address: [address] [place] [address] Performed By: #### 5 7021-8 ####[facility] LABORATORYCLIA [id number] [address] IMMATURE GRAN % 0.4 % Normal [facility] Comment on above: Order Comment: Speci men Type: BLOOD SPECIMENOrdering Facility: [facility] Address: [address] [place] [address] Performed By: #### 5 7021-8 ####[facility] LABORATORYCLIA [id number] [address] IMMATURE GRAN ABS 0.05 k/uL Normal <0.10 [facility] Comment on above: Order Comment: Speci men Type: BLOOD SPECIMENOrdering Facility: [facility] Address: [address] [place] [address] Performed By: #### 5 7021-8 ####[facility] LABORATORYCLIA [id number] [address] [place] Lymphocytes (Bld) [#/Vol] 1.85 10*3/uL Normal 1.00-4.00 [facility] Comment on above: Order Comment: Speci men Type: BLOOD SPECIMENOrdering Facility: [facility] Address: [address] [place] [address] Performed By: #### 5 7021-8 ####[facility] LABORATORYCLIA [id number] [address] Lymphocytes/100 WBC (Bld) 14.7 % Normal [facility] Comment on above: Order Comment: Speci men Type: BLOOD SPECIMENOrdering Facility: [facility] Address: [address] [place] [address] Performed By: #### 5 7021-8 ####[facility] LABORATORYCLIA [id number] [address] MCH (RBC) [Entitic mass] 27.1 pg Normal 26.0-34.0 [facility] Comment on above: Order Comment: Speci men Type: BLOOD SPECIMENOrdering Facility: [facility] Address: [address] [place] [address] Performed By: #### 5 7021-8 ####[facility] LABORATORYCLIA [id number] [address] OF [facility] MCHC (RBC) [Mass/Vol] 30.3 g/dL Low 30.5-36.0 [facility] Comment on above: Order Comment: Speci men Type: BLOOD SPECIMENOrdering Facility: [facility] Address: [address] [place] [address] Performed By: #### 5 7021-8 ####[facility] LABORATORYCLIA [id number] [address] MCV (RBC) [Entitic vol] 89.7 fL Normal 80.0-100.0 [facility] Comment on above: Order Comment: Speci men Type: BLOOD SPECIMENOrdering Facility: [facility] Address: [address] [place] [address] Performed By: #### 5 7021-8 ####[facility] LABORATORYCLIA [id number] [address] STATES OF [facility] Monocytes (Bld) [#/Vol] 0.87 10*3/uL High <0.87 [facility] Comment on above: Order Comment: Speci men Type: BLOOD SPECIMENOrdering Facility: [facility] Address: [address] [place] [address] Performed By: #### 5 7021-8 ####[facility] LABORATORYCLIA [id number] [address] Monocytes/100 WBC (Bld) 6.9 % Normal [facility] Comment on above: Order Comment: Speci men Type: BLOOD SPECIMENOrdering Facility: [facility] Address: [address] [address] Performed By: #### 5 7021-8 ####[facility] LABORATORYCLIA [id number] [address] [place] Neutrophils (Bld) [#/Vol] 9.05 10*3/uL High 1.45-7.50 [facility] Comment on above: Order Comment: Speci men Type: BLOOD SPECIMENOrdering Facility: [facility] Address: [address] [place] [address] Performed By: #### 5 7021-8 ####[facility]ORATORYCLIA [id number] [address] Neutrophils/100 WBC (Bld) 72.2 % Normal [facility] Comment on above: Order Comment: Speci men Type: BLOOD SPECIMENOrdering Facility: [facility] Address: [address] [place] [address] Performed By: #### 5 7021-8 ####[facility] LABORATORYCLIA [id number] [address] Nucleated RBC (Bld) [#/Vol] 10*3/uL Normal <0.01 [facility] Comment on above: Order Comment: Speci men Type: BLOOD SPECIMENOrdering Facility: [facility] Address: [address] [place] [address] Performed By: #### 5 7021-8 ####[facility]ORATORYCLIA [id number] [address] Nucleated RBC/100 WBC (Bld) [Ratio] 0.0 /100 WBC Normal [facility] Comment on above: Order Comment: Speci men Type: BLOOD SPECIMENOrdering Facility: [facility] Address: [address] [place] [address] Performed By: #### 5 7021-8 ####[facility]ORATORYCLIA [id number] [address] Platelet mean volume (Bld) [Entitic vol] 9.9 fL Normal 9.0-12.7 [facility] Comment on above: Order Comment: Speci men Type: BLOOD SPECIMENOrdering Facility: [facility] Address: [address] [place] [address] Performed By: #### 5 7021-8 ####[facility] LABORATORYCLIA [id number] [address] [place] Platelets (Bld) [#/Vol] 335 10*3/uL Normal 150-400 [facility] Comment on above: Order Comment: Speci men Type: BLOOD SPECIMENOrdering Facility: [facility] Address: [address] [place] [address] Performed By: #### 5 7021-8 ####[facility] LABORATORYCLIA [id number] [address] STATES OF [facility] RBC (Bld) [#/Vol] 3.98 10*6/uL Low 4.20-6.00 [facility] Comment on above: Order Comment: Speci men Type: BLOOD SPECIMENOrdering Facility: [facility] Address: [address] [place] [address] Performed By: #### 5 7021-8 ####[facility] LABORATORYCLIA [id number] [address] [place] WBC (Bld) [#/Vol] 12.55 10*3/uL High 3.70-11.00 [facility] Comment on above: Order Comment: Speci men Type: BLOOD SPECIMENOrdering Facility: [facility] Address: [address] [place] [address] Performed By: #### 5 7021-8 ####[facility] LABORATORYCLIA [id number] [address] CK CREATINE KINASEon 022 CK [Catalytic activity/Vol] 72 U/L Normal 51-298 [facility] Comment on above: Order Comment: Speci men Type: BLOOD SPECIMENOrdering Facility: [facility] Address: [address] [place] [address] Performed By: #### C K, 50446-7 ####[facility] LABORATORYCLIA [id number] [place] [address] [place] CONSULT PROGon 07-08-2021 CONSULT PROG Normal [facility] CONSULT PROG Normal [facility] CSF MANUAL DIFFon 07-08-2021 DIF TTL, CSF 3 cells counted Normal [facility] Comment on above: Order Comment: Speci men Type: CEREBROSPINAL FLUIDOrdering Facility: [facility] Address: [address] [place] [address] Performed By: #### 3 4563-7, [id number] ####[facility]ORATORYCLIA [id number] [place] [address] [place] LYMPH%, CSF 33 % Low 50-90 [facility] Comment on above: Order Comment: Speci men Type: CEREBROSPINAL FLUIDOrdering Facility: [facility] Address: [address] [place] [address] Performed By: #### 3 4563-7, [id number] ####[facility]ATORYCLIA [id number] [place] [address] [place] MONO%, CSF 67 % High 10-50 [facility] Comment on above: Order Comment: Speci men Type: CEREBROSPINAL FLUIDOrdering Facility: [facility] Address: [address] [place] [address] Performed By: #### 3 4563-7, [id number] ####[facility]ATORYCLIA [id number] [place] [address] [place] ABD/PEL W IVCONon 022 CT ABD/PEL W IVCON Normal [facility] CT BRAIN WO IVCONon 07-09-[address] BRAIN WO IVCON Normal [facility] CT BRAIN WO IVCON Normal [facility] CT CHEST W IVCON PEon 2021 CT CHEST W IVCON PE Normal [facility] Cell count panel (CSF)on Clarity (CSF) Clear Normal Clear [facility] Comment on above: Order Comment: Speci men Type: CEREBROSPINAL FLUIDOrdering Facility: [facility] Address: [address] [place] [address] Performed By: #### 3 4563-7, [id number] ####[facility]ORATORYCLIA [id number] [address] Clarity (Unsp spec) Clear Normal Clear [facility] Comment on above: Order Comment: Speci men Type: CEREBROSPINAL FLUIDOrdering Facility: [facility] Address: [address] [place] [address] Performed By: #### 3 4563-7, [id number] ####[facility]ORATORYCLIA [id number] [address] Color (CSF) Colorless Normal Colorless [facility] Comment on above: Order Comment: Speci men Type: CEREBROSPINAL FLUIDOrdering Facility: [facility] Address: [address] [place] [address] Performed By: #### 3 4563-7, [id number] ####[facility]ORATORYCLIA [id number] [address] Color (Spun CSF) Colorless Normal Colorless [facility] Comment on above: Order Comment: Speci men Type: CEREBROSPINAL FLUIDOrdering Facility: [facility] Address: [address] [place] [address] Performed By: #### 3 4563-7, [id number] ####[facility]ORATORYCLIA [id number] [address] CSF TUBE NUMBER [employer] Normal [facility] Comment on above: Order Comment: Speci men Type: CEREBROSPINAL FLUIDOrdering Facility: [facility] Address: [address] [place] [address] Performed By: #### 3 4563-7, [id number] ####[facility]ORATORYCLIA [id number] [address] RBC Manual cnt (CSF) [#/Vol] 94 cells/uL High 0-5 [facility] Comment on above: Order Comment: Speci men Type: CEREBROSPINAL FLUIDOrdering Facility: [facility] Address: [address] [place] [address] Performed By: #### 3 4563-7, [id number] ####[facility]ORATORYCLIA [id number] [address] STATES [facility] WBC Manual cnt (CSF) [#/Vol] 1 cells/uL Normal 0-5 [facility] Comment on above: Order Comment: Speci men Type: CEREBROSPINAL FLUIDOrdering Facility: [facility] Address: [address] [place] [address] Performed By: #### 3 4563-7, [id number] ####[facility] LABORATORYCLIA [id number] [address] OF [facility] Comprehensive metabolic 2000 panelon 07-08-2021 Albumin [Mass/Vol] 3.6 g/dL Low 3.9-4.9 [facility] Comment on above: Order Comment: Speci men Type: BLOOD SPECIMENOrdering Facility: [facility] Address: [address] [place] [address] Performed By: #### Eileen Valdivia, 75561-0 ####[facility] LABORATORYCLIA [id number] [address] STATES [facility] ALP [Catalytic activity/Vol] 125 U/L High 38-113 [facility] Comment on above: Order Comment: Speci men Type: BLOOD SPECIMENOrdering Facility: [facility] Address: [address] [place] [address] Performed By: #### C Skip, 31656-1 ####[facility] LABORATORYCLIA [id number] [address] ALT With P-5'-P [Catalytic activity/Vol] 24 U/L Normal 10-54 [facility] Comment on above: Order Comment: Speci men Type: BLOOD SPECIMENOrdering Facility: [facility] Address: [address] [place], [place] [id number] Performed By: #### Eileen Valdivia, 60610-6 ####[facility] LABORATORYCLIA [id number] [address] [place] Anion gap [Moles/Vol] 16 mmol/L Normal 9-18 [facility] Comment on above: Order Comment: Speci men Type: BLOOD SPECIMENOrdering Facility: [facility] Address: [address] [place] [address] Performed By: #### Eileen Valdivia, 05616-2 ####[facility] LABORATORYCLIA [id number] [place] [address] [place] AST With P-5'-P [Catalytic activity/Vol] 21 U/L Normal 14-40 [facility] Comment on above: Order Comment: Speci men Type: BLOOD SPECIMENOrdering Facility: [facility] Address: [address] [place] [address] Performed By: #### Eileen Valdivia, 84406-2 ####[facility]ORATORYCLIA [id number] [place] [address] [place] Bilirubin [Mass/Vol] 0.3 mg/dL Normal 0.2-1.3 [facility] Comment on above: Order Comment: Speci men Type: BLOOD SPECIMENOrdering Facility: [facility] Address: [address] [place] [address] Performed By: #### Eileen Valdivia, 23869-8 ####[facility]ORATORYCLIA [id number] [address] [place] Calcium [Mass/Vol] 8.9 mg/dL Normal 8.5-10.2 [facility] Comment on above: Order Comment: Speci men Type: BLOOD SPECIMENOrdering Facility: [facility] Address: [address] [place] [address] Performed By: #### Eileen Valdivia, 94389-1 ####[facility]ORATORYCLIA [id number] [place] [address] [place] Chloride [Moles/Vol] 96 mmol/L Low 97-105 [facility] Comment on above: Order Comment: Speci men Type: BLOOD SPECIMENOrdering Facility: [facility] Address: [address] [place] [address] Performed By: #### Eileen Valdivia, 09174-5 ####[facility]ORATORYCLIA [id number] [address] [place] CO2 [Moles/Vol] 27 mmol/L Normal 22-30 [facility] Comment on above: Order Comment: Speci men Type: BLOOD SPECIMENOrdering Facility: [facility] Address: [address] [place] [address] Performed By: #### Eileen Valdivia, 46235-7 ####[facility]ORATORYCLIA [id number] [address] Creatinine [Mass/Vol] 0.68 mg/dL Low 0.73-1.22 [facility] Comment on above: Order Comment: Speci men Type: BLOOD SPECIMENOrdering Facility: [facility] Address: [address] [place] [address] Performed By: #### Eileen Valdivia, 82559-8 ####[facility]ORATORYCLIA [id number] [address] ESTIMATED GLOMERULAR FILTRATION RATE 101 mL/min/1.73m??? Normal >=60 [facility] Comment on above: Order Comment: Speci men Type: BLOOD SPECIMENOrdering Facility: [facility] Address: [address] [place] [address] Result Comment: Luzmaria mated Glomerular Filtration Rate [...] reflect actual GFR. Performed By: #### C Skip, 29371-2 ####[facility] LABORATORYCLIA [id number] [place] [address] [place] Glucose [Mass/Vol] 130 mg/dL High 74-99 [facility] Comment on above: Order Comment: Shira feldman Type: BLOOD SPECIMENOrdering Facility: [facility] Address: [address] [place] [address] Result Comment: The [place] [employer] (ADA) provides guidance for cutoff [...] Standards of Medical Care in Diabetes 2016, [place] [employer]. Diabetes Care. 2016.39(Suppl 1). Performed By: #### Eileen Valdivia, 99273-6 ####[facility]ORATORYCLIA [id number] [place] [address] [place] Potassium [Moles/Vol] 3.9 mmol/L Normal 3.7-5.1 [facility] Comment on above: Order Comment: Shira feldman Type: BLOOD SPECIMENOrdering Facility: [facility] Address: [address] [place] [address] Performed By: #### Eileen Valdivia, 69924-9 ####[facility]ORATORYCLIA [id number] [place] [address] [place] Protein [Mass/Vol] 7.0 g/dL Normal 6.3-8.0 [facility] Comment on above: Order Comment: Shira feldman Type: BLOOD SPECIMENOrdering Facility: [facility] Address: [address] [place] [address] Performed By: #### Eileen Valdivia, 98125-6 ####[facility]ORATORYCLIA [id number] [place] [address] [place] Sodium [Moles/Vol] 139 mmol/L Normal 136-144 [facility] Comment on above: Order Comment: Speci men Type: BLOOD SPECIMENOrdering Facility: [facility] Address: [address] [place] [address] Performed By: #### Eileen Valdivia, 83298-9 ####[facility]ORATORYCLIA [id number] [address] Urea nitrogen [Mass/Vol] 16 mg/dL Normal 9-24 [facility] Comment on above: Order Comment: Speci men Type: BLOOD SPECIMENOrdering Facility: [facility] Address: [address] [place] [address] Performed By: #### Eileen Valdivia, 14288-3 ####[facility]ORATORYCLIA [id number] [address] ED NOTEon 07-08-2021 ED NOTE HNO ID: [id number] Author: Lenora James RN Service: Emergency Medicine Author Type: Registered Nurse Type: ED Notes Filed: 07/08/2021 5:03 PM Note Text: Pt to OR with surgical team [facility] ED NOTE HNO ID: [id number] Author: Lenora James RN Service: Emergency Medicine Author Type: Registered Nurse Type: ED Notes Filed: 07/08/2021 4:50 PM Note Text: OR team to get pt [facility] ED NOTE HNO ID: [id number] Author: Lenora James RN Service: Emergency Medicine Author Type: Registered Nurse Type: ED Notes Filed: 07/08/2021 4:50 PM Note Text: Normal [facility] ED NOTE HNO ID: [id number] Author: Lenora James RN Service: Emergency Medicine Author Type: Registered Nurse Type: ED Notes Filed: 07/08/2021 4:50 PM Note Text: Spoke with presurg; pt to go to OR now [facility] ED NOTE HNO ID: [id number] Author: Lenora James RN Service: Emergency Medicine Author Type: Registered Nurse Type: ED Notes Filed: 07/08/2021 4:12 PM Note Text: Neurosurgery at beside [facility] ED NOTE HNO ID: [id number] Author: Lenora James RN Service: Emergency Medicine Author Type: Registered Nurse Type: ED Notes Filed: 07/08/2021 2:35 PM Note Text: respiratory aware of pt breathing treatments Normal [facility] ED NOTE HNO ID: [id number] Author: Lisa Woo RN Service: ? Author Type: Registered Nurse Type: ED Notes Filed: 07/08/2021 2:20 PM Note Text: Xray notified pt is ready. Normal [facility] ED NOTE HNO ID: [id number] Author: Lenora James RN Service: Emergency Medicine Author Type: Registered Nurse Type: ED Notes Filed: 07/08/2021 12:14 PM Note Text: CT notified regarding imaging orders placed Normal [facility] ED NOTE Normal [facility] ED PROV NOTEon 07-08-2021 ED PROV NOTE Normal [facility] Glucose CSF-mCncon Glucose (CSF) [Mass/Vol] 88 mg/dL High 40-70 [facility] Comment on above: Order Comment: Shira feldman Type: CEREBROSPINAL FLUIDOrdering Facility: [facility] Address: [address] [place] [id number] Result Comment: Lumb ar CSF glucose values of healthy patients are approximately 60% of the plasma values and must always be compared with a concurrently measured plasma value for adequate clinical interpretation.References: 1. Glucose HK (GLUC3) [package insert V 12.0 Citizen Of [place]]. [employer], [place], [place]. September 2015. 2. Michelle Moore, Loki, H. (2015). Chapter 7: Glucose and Lactate. F. Irina rose al.(eds.), Cerebrospinal Fluid in Clinical Neurology. [place]: [employer]. Performed By: #### 2 880-3, 2342-4 ####[facility]ORATORYCLIA [id number] [place] [address] [place] HIGH SENSITIVITY TROPONIN To n 07-08-2021 HIGH SENSITIVITY TAMIKO 27 ng/L High <12 [facility] Comment on above: Order Comment: Shira feldman Type: BLOOD SPECIMENOrdering Facility: [facility] Address: [address] [place] [address] Result Comment: When assessing risk for acute [...] day MACE. Performed By: #### H STNT ####[facility]ORATORYCLIA [id number] [address] HIGH SENSITIVITY TAMIKO 36 ng/L High <12 [facility] Comment on above: Order Comment: Speci men Type: BLOOD SPECIMENOrdering Facility: [facility] Address: [address] [place] [address] Result Comment: When assessing risk for acute [...] day MACE. Performed By: #### H STNT ####[facility]ORATORYCLIA [id number] [address] STATES OF [facility] HISTORY PHYSICALon HISTORY PHYSICAL Normal [facility] NURSING PROGon 07-08-2021 NURSING PROG Normal [facility] OPERATIVE NOon 07-08-2021 OPERATIVE NO Normal [facility] Prot CSF-mCncon 07-08-2021 Protein (CSF) [Mass/Vol] 33 mg/dL Normal 15-45 [facility] Comment on above: Order Comment: Speci men Type: CEREBROSPINAL FLUIDOrdering Facility: [facility] Address: [address] [place] [address] Performed By: #### 2 880-3, 2342-4 ####[facility]ORATORYCLIA [id number] [address] [place] SARS-CoV-2 RNA Resp Ql MEGAN+p robeon 07-08-2021 SARS-CoV-2 (COVID-19) RNA MEGAN+probe Ql (Resp) COVID 19 RESULT: SARS-CoV-2 (Agent of COVID-19) Not Detected by RT-PCR or equivalent method. This test has been authorized by FDA under an Emergency Use Authorization (EUA). Normal [facility] Comment on above: Performed By: #### 9 4500-6 ####[facility] LABORATORYCLIA [id number] [address] STAPH AUREUS PCRon 2 S. aureus and MRSA panel MEGAN+probe (Nose) Normal Negative [facility] Comment on above: Order Comment: Speci men Type: SWAB OF INTERNAL NOSEOrdering Facility: [facility] Address: [address] [place] [address] Result Comment: Nega tive for Staphylococcus aureus by PCR.Negative for MRSA by PCR Performed By: #### S APCR ####[facility]ORATORYCLIA [id number] [address] Urinalysis complete panel (U )on 07-08-2021 Bacteria LM.HPF (Urine sed) [#/Area] Few Abnormal None Seen [facility] Comment on above: Order Comment: Speci men Type: URINE SPECIMENOrdering Facility: [facility] Address: [address] [place] [address] Performed By: #### 2 4356-8 ####[facility]ORATORYCLIA [id number] [address] [place] Bilirubin Ql (U) Negative Normal Negative [facility] Comment on above: Order Comment: Speci men Type: URINE SPECIMENOrdering Facility: [facility] Address: [address] [place] [address] Performed By: #### 2 4356-8 ####[facility] LABORATORYCLIA [id number] [address] Clarity (Unsp spec) Turbid Abnormal Clear [facility] Comment on above: Order Comment: Speci men Type: URINE SPECIMENOrdering Facility: [facility] Address: [address] [place] [address] Performed By: #### 2 4356-8 ####[facility] LABORATORYCLIA [id number] [address] Color (U) Light Yellow Normal yellow [facility] Comment on above: Order Comment: Speci men Type: URINE SPECIMENOrdering Facility: [facility] Address: [address] [place] [address] Performed By: #### 2 4356-8 ####[facility] LABORATORYCLIA [id number] [address] Glucose Test strip (U) [Mass/Vol] Negative Normal Negative [facility] Comment on above: Order Comment: Speci men Type: URINE SPECIMENOrdering Facility: [facility] Address: [address] [place] [address] Performed By: #### 2 4356-8 ####[facility]ORATORYCLIA [id number] [address] Hemoglobin Ql (U) Negative Normal Negative [facility] Comment on above: Order Comment: Speci men Type: URINE SPECIMENOrdering Facility: [facility] Address: [address] [place] [address] Performed By: #### 2 4356-8 ####[facility]ORATORYCLIA [id number] [address] [place] Hyaline casts (Urine sed) [#/Area] 1-3 /LPF Abnormal 0 /LPF [facility] Comment on above: Order Comment: Speci men Type: URINE SPECIMENOrdering Facility: [facility] Address: [address] [place] [address] Performed By: #### 2 4356-8 ####[facility] LABORATORYCLIA [id number] [address] Ketones Ql (U) Negative Normal Negative [facility] Comment on above: Order Comment: Speci men Type: URINE SPECIMENOrdering Facility: [facility] Address: [address] [address] Performed By: #### 2 4356-8 ####[facility] LABORATORYCLIA [id number] [address] Leukocyte esterase Test strip Ql (U) Negative Normal Negative [facility] Comment on above: Order Comment: Speci men Type: URINE SPECIMENOrdering Facility: [facility] Address: [address] [place] [address] Performed By: #### 2 4356-8 ####[facility] LABORATORYCLIA [id number] [address] Nitrite Ql (U) Negative Normal Negative [facility] Comment on above: Order Comment: Speci men Type: URINE SPECIMENOrdering Facility: [facility] Address: [address] [place] [address] Performed By: #### 2 4356-8 ####[facility] LABORATORYCLIA [id number] [address] pH (U) 5.0 [pH] Normal 5.0-8.0 [facility] Comment on above: Order Comment: Speci men Type: URINE SPECIMENOrdering Facility: [facility] Address: [address] [place] [address] Performed By: #### 2 4356-8 ####[facility] LABORATORYCLIA [id number] [address] Protein (U) [Mass/Vol] Negative Normal Negative [facility] Comment on above: Order Comment: Speci men Type: URINE SPECIMENOrdering Facility: [facility] Address: [address] [place] [address] Performed By: #### 2 4356-8 ####[facility]ORATORYCLIA [id number] [address] RBC LM.HPF (Urine sed) [#/Area] 11-25 /HPF Abnormal 0-3 /HPF [facility] Comment on above: Order Comment: Speci men Type: URINE SPECIMENOrdering Facility: [facility] Address: [address] [address] Performed By: #### 2 4356-8 ####[facility]ORATORYCLIA [id number] [address] Specific gravity (U) [Rel density] 1.018 Normal 1.005-1.030 [facility] Comment on above: Order Comment: Speci men Type: URINE SPECIMENOrdering Facility: [facility] Address: [address] [place] [address] Performed By: #### 2 4356-8 ####[facility] LABORATORYCLIA [id number] [address] Urobilinogen Ql (U) Normal Normal Negative [facility] Comment on above: Order Comment: Speci men Type: URINE SPECIMENOrdering Facility: [facility] Address: [address] [place] [address] Performed By: #### 2 4356-8 ####[facility] LABORATORYCLIA [id number] [address] WBC LM.HPF (Urine sed) [#/Area] /[HPF] Abnormal 0-5 /HPF [facility] Comment on above: Order Comment: Speci men Type: URINE SPECIMENOrdering Facility: [facility] Address: [address] [place] [address] Performed By: #### 2 4356-8 ####[facility] LABORATORYCLIA [id number] [address] Vancomycin random [Mass/Vol] on 07-08-2021 Vancomycin [Mass/Vol] 31.0 ug/mL High 10.0-20.0 [facility] Comment on above: Order Comment: Speci men Type: BLOOD SPECIMENOrdering Facility: [facility] Address: [address] [place] [address] Result Comment: Refe rence ranges and high/low indicator flags are provided as general guidelines only. The treating physician must determine appropriate target levels/dosing based on the specific clinical situation. Performed By: #### 4 091-5 ####[facility]ORATORYCLIA [id number] [place] [address] [place] XR ABD 2V SUPINE W UPR/DECUB /CTLon 07-08-2021 XR ABD 2V SUPINE W UPR/DECUB/CTL Normal [facility] XR CHEST 1V FRONTALon 2021 XR CHEST 1V FRONTAL Normal [facility] XR CHEST 1V FRONTAL Normal [facility] XR NECK SOFT TISSUE 2V AP/LA Ton 07-08-2021 XR NECK SOFT TISSUE 2V AP/LAT Normal [facility] XR SKULL 2V AP/LATon 022 XR SKULL 2V AP/LAT Normal [facility] HISTORY PHYSICALon HISTORY PHYSICAL HNO ID: [id number] Author: Amy Beltran MD Service: ? Author Type: Physician Type: HANDP Filed: 06/30/2021 6:42 PM Note Text: Connected Care Unit History and Physical Facility: [place] Level of Care: Skilled Admission Date: June [...] Modafinil for ROSALINO Monitor mental status. Amy Devin Prognosis: Rehab potential: Fair I have reviewed [...] regarding the above plan. Total time spent [id number] and/or counseling and coordinating care on the skilled care unit for patient was approximately 45 minutes SUBJECTIVE (HISTORY) Chief Complaint: Confusion, infection, blood clot. Andrew Sifuentes is being seen today for nursing home facility (SNF) admission AND management of weakness, tube feed, infected retroperitoneal infection and seizure. HPI: This is a 71 year old male who presents from [facility] with primary admitting diagnosis of Seizure, [...] CT brain concerning for hydrocephalus. 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 Normal [facility] Basic metabolic 2000 panelon 06-28-2021 Anion gap [Moles/Vol] 7 mmol/L Low 9-18 [facility] Comment on above: Order Comment: Shira feldman Type: BLOOD SPECIMENOrdering Facility: [facility] Address: [address] [id number] Performed By: #### 2 4320-06, ####[facility] LABORATORYCLIA [id number] [place] [address] [place] Calcium [Mass/Vol] 8.8 mg/dL Normal 8.5-10.2 [facility] Comment on above: Order Comment: Shira feldman Type: BLOOD SPECIMENOrdering Facility: [facility] Address: [address] [place] [address] Performed By: #### 2 4320-, ####[facility]ORATORYCLIA [id number] [place] [address] [place] Chloride [Moles/Vol] 103 mmol/L Normal 97-105 [facility] Comment on above: Order Comment: Speci men Type: BLOOD SPECIMENOrdering Facility: [facility] Address: [address] [place] [address] Performed By: #### 2 4321-2, ####[facility]ORATORYCLIA [id number] [place] [address] [place] CO2 [Moles/Vol] 28 mmol/L Normal 22-30 [facility] Comment on above: Order Comment: Speci men Type: BLOOD SPECIMENOrdering Facility: [facility] Address: [address] [place] [address] Performed By: #### 2 4321-2, ####[facility] [id number] [place] [address] [place] Creatinine [Mass/Vol] 0.57 mg/dL Low 0.73-1.22 [facility] Comment on above: Order Comment: Speci men Type: BLOOD SPECIMENOrdering Facility: [facility] Address: [address] [place] [address] Performed By: #### 2 4321-2, ####[facility]ITALCLIA [id number] [address] [place] GFR/1.73 sq M.predicted MDRD (S/P/Bld) [Vol rate/Area] mL/min/{1.73_m2} Normal [facility] Comment on above: Order Comment: Speci men Type: BLOOD SPECIMENOrdering Facility: [facility] Address: [address] [place] [address] Result Comment: >60e GFR (Estimated GFR) Units [...] actual GFR. Performed By: #### 2 4320-06, ####[facility]ORATORYCLIA [id number] [place] [address] [place] Glucose [Mass/Vol] 120 mg/dL High 74-99 [facility] Comment on above: Order Comment: Shira feldman Type: BLOOD SPECIMENOrdering Facility: [facility] Address: [address] [phone] Result Comment: The [place] [employer] (ADA) provides guidance for cutoff [...] Standards of Medical Care in Diabetes 2016, [place] [employer]. Diabetes Care. 2016.39(Suppl 1). Performed By: #### 2 4320-06, ####[facility]ORATORYCLIA [id number] [place] [address] [place] Potassium [Moles/Vol] 3.8 mmol/L Normal 3.7-5.1 [facility] Comment on above: Order Comment: Shira feldman Type: BLOOD SPECIMENOrdering Facility: [facility] Address: [address] [place] [address] Performed By: #### 2 4320-06, ####[facility]ORATORYCLIA [id number] [place] [address] [place] Sodium [Moles/Vol] 138 mmol/L Normal 136-144 [facility] Comment on above: Order Comment: Speci men Type: BLOOD SPECIMENOrdering Facility: [facility] Address: [address] [place] [address] Performed By: #### 2 4321-2, ####[facility]ORATORYCLIA [id number] [address] STATES OF [facility] Urea nitrogen [Mass/Vol] 24 mg/dL Normal 9-24 [facility] Comment on above: Order Comment: Speci men Type: BLOOD SPECIMENOrdering Facility: [facility] Address: [address] [place] [address] Performed By: #### 2 432-2, ####[facility]ORATORYCLIA [id number] [address] CASE MANAGEMon 06-28-2021 CASE MANAGEM Normal [facility] CBC panel Auto (Bld)on 06-28 Erythrocyte distribution width (RBC) [Ratio] 15.6 % High 11.5-15.0 [facility] Comment on above: Order Comment: Speci men Type: BLOOD SPECIMENOrdering Facility: [facility] Address: [address] [place] [address] Performed By: #### 5 8410-2 ####[facility] LABORATORYCLIA [id number] [address] STATES OF [facility] Hematocrit (Bld) [Volume fraction] 30.5 % Low 39.0-51.0 [facility] Comment on above: Order Comment: Speci men Type: BLOOD SPECIMENOrdering Facility: [facility] Address: [address] [place] [address] Performed By: #### 5 8410-2 ####[facility]ORATORYCLIA [id number] [address] [place] Hemoglobin (Bld) [Mass/Vol] 9.4 g/dL Low 13.0-17.0 [facility] Comment on above: Order Comment: Speci men Type: BLOOD SPECIMENOrdering Facility: [facility] Address: [address] [place] [address] Performed By: #### 5 8410-2 ####[facility]ORATORYCLIA [id number] [address] MCH (RBC) [Entitic mass] 27.8 pg Normal 26.0-34.0 [facility] Comment on above: Order Comment: Speci men Type: BLOOD SPECIMENOrdering Facility: [facility] Address: [address] [place] [address] Performed By: #### 5 8410-2 ####[facility]ORATORYCLIA [id number] [address] MCHC (RBC) [Mass/Vol] 30.8 g/dL Normal 30.5-36.0 [facility] Comment on above: Order Comment: Speci men Type: BLOOD SPECIMENOrdering Facility: [facility] Address: [address] [place] [address] Performed By: #### 5 8410-2 ####[facility] LABORATORYCLIA [id number] [address] MCV (RBC) [Entitic vol] 90.2 fL Normal 80.0-100.0 [facility] Comment on above: Order Comment: Speci men Type: BLOOD SPECIMENOrdering Facility: [facility] Address: [address] [place] [address] Performed By: #### 5 8410-2 ####[facility]ORATORYCLIA [id number] [address] Nucleated RBC (Bld) [#/Vol] 10*3/uL Normal <0.01 [facility] Comment on above: Order Comment: Speci men Type: BLOOD SPECIMENOrdering Facility: [facility] Address: [address] [place] [address] Performed By: #### 5 8410-2 ####[facility]ORATORYCLIA [id number] [address] Platelet mean volume (Bld) [Entitic vol] 9.9 fL Normal 9.0-12.7 [facility] Comment on above: Order Comment: Speci men Type: BLOOD SPECIMENOrdering Facility: [facility] Address: [address] [place] [address] Performed By: #### 5 8410-2 ####[facility]ORATORYCLIA [id number] [address] STATES OF [facility] Platelets (Bld) [#/Vol] 333 10*3/uL Normal 150-400 [facility] Comment on above: Order Comment: Speci men Type: BLOOD SPECIMENOrdering Facility: [facility] Address: [address] [place] [address] Performed By: #### 5 8410-2 ####[facility]ORATORYCLIA [id number] [place] [address] [place] RBC (Bld) [#/Vol] 3.38 10*6/uL Low 4.20-6.00 [facility] Comment on above: Order Comment: Speci men Type: BLOOD SPECIMENOrdering Facility: [facility] Address: [address] [place] [address] Performed By: #### 5 8410-2 ####[facility]ORATORYCLIA [id number] [address] OF [facility] WBC (Bld) [#/Vol] 9.71 10*3/uL Normal 3.70-11.00 [facility] Comment on above: Order Comment: Speci men Type: BLOOD SPECIMENOrdering Facility: [facility] Address: [address] [place] [address] Performed By: #### 5 8410-2 ####[facility]ORATORYCLIA [id number] [address] [place] CNDSon 06-28-2021 CNDS Normal [facility] CONSULT PROGon 06-28-2021 CONSULT PROG Normal [facility] Magnesium SerPl-mCncon 06-28 Magnesium [Mass/Vol] 2.2 mg/dL Normal 1.7-2.3 [facility] Comment on above: Order Comment: Speci men Type: BLOOD SPECIMENOrdering Facility: [facility] Address: [address] [place] [address] Performed By: #### 2 432-2, ####[facility]ORATORYCLIA [id number] [address] OF [facility] Vancomycin random [Mass/Vol] on 06-28-2021 Vancomycin [Mass/Vol] 23.0 ug/mL High 10.0-20.0 [facility] Comment on above: Order Comment: Speci men Type: BLOOD SPECIMENOrdering Facility: [facility] Address: [address] [place] [address] Result Comment: Refe rence ranges and high/low indicator flags are provided as general guidelines only. The treating physician must determine appropriate target levels/dosing based on the specific clinical situation. Performed By: #### 4 091-5 ####[facility]ATORYCLIA [id number] [address] [place] ALLIED HEALTHon 06-27-2021 ALLIED HEALTH Normal [facility] Basic metabolic 2000 panelon 06-27-2021 Anion gap [Moles/Vol] 10 mmol/L Normal 9-18 [facility] Comment on above: Order Comment: Speci men Type: BLOOD SPECIMENOrdering Facility: [facility] Address: [address] [address] Performed By: #### 2 4320-06, ####[facility]ORATORYCLIA [id number] [address] STATES OF [facility] Calcium [Mass/Vol] 8.8 mg/dL Normal 8.5-10.2 [facility] Comment on above: Order Comment: Speci men Type: BLOOD SPECIMENOrdering Facility: [facility] Address: [address] [address] Performed By: #### 2 4322, ####[facility]ATORYCLIA [id number] [address] [place] Chloride [Moles/Vol] 104 mmol/L Normal 97-105 [facility] Comment on above: Order Comment: Speci men Type: BLOOD SPECIMENOrdering Facility: [facility] Address: [address] [place] [address] Performed By: #### 2 4321-2, ####[facility]ATORYCLIA [id number] [address] [place] CO2 [Moles/Vol] 26 mmol/L Normal 22-30 [facility] Comment on above: Order Comment: Speci men Type: BLOOD SPECIMENOrdering Facility: [facility] Address: [address] [place] [address] Performed By: #### 2 4321-2, ####[facility]ATORYCLIA [id number] [address] [place] Creatinine [Mass/Vol] 0.57 mg/dL Low 0.73-1.22 [facility] Comment on above: Order Comment: Speci men Type: BLOOD SPECIMENOrdering Facility: [facility] Address: [address] [place] [address] Performed By: #### 2 4321-2, ####[facility]ATORYCLIA [id number] [address] [place] GFR/1.73 sq M.predicted MDRD (S/P/Bld) [Vol rate/Area] mL/min/{1.73_m2} Normal [facility] Comment on above: Order Comment: Speci men Type: BLOOD SPECIMENOrdering Facility: [facility] Address: [address] [place] [address] Result Comment: >60e GFR (Estimated GFR) Units [...] actual GFR. Performed By: #### 2 432-, ####[facility]ATORYCLIA [id number] [place] [address] [place] Glucose [Mass/Vol] 133 mg/dL High 74-99 [facility] Comment on above: Order Comment: Shira feldman Type: BLOOD SPECIMENOrdering Facility: [facility] Address: [address] [phone] Result Comment: The [place] [employer] (ADA) provides guidance for cutoff [...] Standards of Medical Care in Diabetes 2016, [place] [employer]. Diabetes Care. 2016.39(Suppl 1). Performed By: #### 2 432-, ####[facility]ATORYCLIA [id number] [place] [address] [place] Potassium [Moles/Vol] 4.2 mmol/L Normal 3.7-5.1 [facility] Comment on above: Order Comment: Shira feldman Type: BLOOD SPECIMENOrdering Facility: [facility] Address: [address] [place] [address] Performed By: #### 2 432-, ####[facility]ORATORYCLIA [id number] [address] [id number] [place] Sodium [Moles/Vol] 140 mmol/L Normal 136-144 [facility] Comment on above: Order Comment: Shira feldman Type: BLOOD SPECIMENOrdering Facility: [facility] Address: [address] [place] [address] Performed By: #### 2 4321-2, ####[facility]ATORYCLIA [id number] [address] Urea nitrogen [Mass/Vol] 24 mg/dL Normal 9-24 [facility] Comment on above: Order Comment: Speci men Type: BLOOD SPECIMENOrdering Facility: [facility] Address: [address] [place] [address] Performed By: #### 2 4321-2, ####[facility]ATORYCLIA [id number] [address] CASE MANAGEMon 06-27-2021 CASE MANAGEM Normal [facility] CBC panel Auto (Bld)on 06-27 Erythrocyte distribution width (RBC) [Ratio] 15.8 % High 11.5-15.0 [facility] Comment on above: Order Comment: Speci men Type: BLOOD SPECIMENOrdering Facility: [facility] Address: [address] [place] [address] Performed By: #### 5 8410-2 ####[facility]ATORYCLIA [id number] [address] STATES OF [facility] Hematocrit (Bld) [Volume fraction] 31.4 % Low 39.0-51.0 [facility] Comment on above: Order Comment: Speci men Type: BLOOD SPECIMENOrdering Facility: [facility] Address: [address] [place] [address] Performed By: #### 5 8410-2 ####[facility]ATORYCLIA [id number] [address] [place] Hemoglobin (Bld) [Mass/Vol] 9.3 g/dL Low 13.0-17.0 [facility] Comment on above: Order Comment: Speci men Type: BLOOD SPECIMENOrdering Facility: [facility] Address: [address] [place] [address] Performed By: #### 5 8410-2 ####[facility]ORATORYCLIA [id number] [address] MCH (RBC) [Entitic mass] 27.0 pg Normal 26.0-34.0 [facility] Comment on above: Order Comment: Speci men Type: BLOOD SPECIMENOrdering Facility: [facility] Address: [address] [place] [address] Performed By: #### 5 8410-2 ####[facility]ATORYCLIA [id number] [address] MCHC (RBC) [Mass/Vol] 29.6 g/dL Low 30.5-36.0 [facility] Comment on above: Order Comment: Speci men Type: BLOOD SPECIMENOrdering Facility: [facility] Address: [address] [place] [address] Performed By: #### 5 8410-2 ####[facility]ATORYCLIA [id number] [address] MCV (RBC) [Entitic vol] 91.3 fL Normal 80.0-100.0 [facility] Comment on above: Order Comment: Speci men Type: BLOOD SPECIMENOrdering Facility: [facility] Address: [address] [place] [address] Performed By: #### 5 8410-2 ####[facility]ATORYCLIA [id number] [address] Nucleated RBC (Bld) [#/Vol] 10*3/uL Normal <0.01 [facility] Comment on above: Order Comment: Speci men Type: BLOOD SPECIMENOrdering Facility: [facility] Address: [address] [place] [address] Performed By: #### 5 8410-2 ####[facility]ATORYCLIA [id number] [address] Platelet mean volume (Bld) [Entitic vol] 10.3 fL Normal 9.0-12.7 [facility] Comment on above: Order Comment: Speci men Type: BLOOD SPECIMENOrdering Facility: [facility] Address: [address] [place] [address] Performed By: #### 5 8410-2 ####[facility]ATORYCLIA [id number] [address] OF [facility] Platelets (Bld) [#/Vol] 359 10*3/uL Normal 150-400 [facility] Comment on above: Order Comment: Speci men Type: BLOOD SPECIMENOrdering Facility: [facility] Address: [address] [place] [address] Performed By: #### 5 8410-2 ####[facility]ORATORYCLIA [id number] [place] [address] [place] RBC (Bld) [#/Vol] 3.44 10*6/uL Low 4.20-6.00 [facility] Comment on above: Order Comment: Speci men Type: BLOOD SPECIMENOrdering Facility: [facility] Address: [address] [place] [address] Performed By: #### 5 8410-2 ####[facility] LABORATORYCLIA [id number] [address] [place] WBC (Bld) [#/Vol] 10.73 10*3/uL Normal 3.70-11.00 [facility] Comment on above: Order Comment: Speci men Type: BLOOD SPECIMENOrdering Facility: [facility] Address: [address] [place], [place] [address] Performed By: #### 5 8410-2 ####[facility] LABORATORYCLIA [id number] [address] [place] Magnesium SerPl-mCncon 06-27 Magnesium [Mass/Vol] 2.2 mg/dL Normal 1.7-2.3 [facility] Comment on above: Order Comment: Speci men Type: BLOOD SPECIMENOrdering Facility: [facility] Address: [address] [place] [address] Performed By: #### 2 4321-2, 64202-8 ####[facility]ATORYCLIA [id number] [place] [address] [place] NT-proBNP SerPl-mCncon 06-27 Natriuretic peptide.B prohormone N-Terminal [Mass/Vol] 184 pg/mL High <125 [facility] Comment on above: Order Comment: Speci men Type: BLOOD SPECIMENOrdering Facility: [facility] Address: [address] [place] [address] Performed By: #### 3 3762-6 ####[facility]ORATORYCLIA [id number] [place] [address] [place] NUTRITIONon 06-27-2021 NUTRITION Normal [facility] THERAPY NTon 06-27-2021 THERAPY NT Normal [facility] THERAPY NT Normal [facility] XR CHEST 1V FRONTALon 2021 XR CHEST 1V FRONTAL Normal [facility] Basic metabolic 2000 panelon 06-26-2021 Anion gap [Moles/Vol] 9 mmol/L Normal 9-18 [facility] Comment on above: Order Comment: Speci men Type: BLOOD SPECIMENOrdering Facility: [facility] Address: [address] [place] [address] Performed By: #### 1 9123-9, 13561-7 ####[facility]ATORYCLIA [id number] [place] [address] [place] Calcium [Mass/Vol] 8.7 mg/dL Normal 8.5-10.2 [facility] Comment on above: Order Comment: Speci men Type: BLOOD SPECIMENOrdering Facility: [facility] Address: [address] [place] [address] Performed By: #### 1 9123-9, 86389-9 ####[facility]ATORYCLIA [id number] [place] [address] [place] Chloride [Moles/Vol] 105 mmol/L Normal 97-105 [facility] Comment on above: Order Comment: Speci men Type: BLOOD SPECIMENOrdering Facility: [facility] Address: [address] [place] [address] Performed By: #### 1 9123-9, 29245-8 ####[facility]ORATORYCLIA [id number] [address] STATES OF [facility] CO2 [Moles/Vol] 26 mmol/L Normal 22-30 [facility] Comment on above: Order Comment: Speci men Type: BLOOD SPECIMENOrdering Facility: [facility] Address: [address] [place] [address] Performed By: #### 1 9123-9, 26744-5 ####[facility]ORATORYCLIA [id number] [address] [place] Creatinine [Mass/Vol] 0.56 mg/dL Low 0.73-1.22 [facility] Comment on above: Order Comment: Speci men Type: BLOOD SPECIMENOrdering Facility: [facility] Address: [address] [place] [address] Performed By: #### 1 9123-9, 74606-8 ####[facility]ATORYCLIA [id number] [address] [place] GFR/1.73 sq M.predicted MDRD (S/P/Bld) [Vol rate/Area] mL/min/{1.73_m2} Normal [facility] Comment on above: Order Comment: Speci men Type: BLOOD SPECIMENOrdering Facility: [facility] Address: [address] [place] [address] Result Comment: >60e GFR (Estimated GFR) Units [...] reflect actual GFR. Performed By: #### 1 9123-9 34464-1 ####[facility]ATORYCLIA [id number] [place] [address] [place] Glucose [Mass/Vol] 134 mg/dL High 74-99 [facility] Comment on above: Order Comment: Speci men Type: BLOOD SPECIMENOrdering Facility: [facility] Address: [address] [place] [address] Result Comment: The [place] [employer] (ADA) provides guidance for cutoff [...] Standards of Medical Care in Diabetes 2016, [place] [employer]. Diabetes Care. 2016.39(Suppl 1). Performed By: #### 1 9123-9, 16114-4 ####[facility]ORATORYCLIA [id number] [place] [address] [place] Potassium [Moles/Vol] 3.8 mmol/L Normal 3.7-5.1 [facility] Comment on above: Order Comment: Speci men Type: BLOOD SPECIMENOrdering Facility: [facility] Address: [address] [place] [address] Performed By: #### 1 9123-9-2 ####[facility]ORATORYCLIA [id number] [place] [address] [place] Sodium [Moles/Vol] 140 mmol/L Normal 136-144 [facility] Comment on above: Order Comment: Speci men Type: BLOOD SPECIMENOrdering Facility: [facility] Address: [address] [place] [address] Performed By: #### 1 91239, 39628-0 ####[facility] LABORATORYCLIA [id number] [address] STATES [facility] Urea nitrogen [Mass/Vol] 24 mg/dL Normal 9-24 [facility] Comment on above: Order Comment: Speci men Type: BLOOD SPECIMENOrdering Facility: [facility] Address: [address] [place] [address] Performed By: #### 1 9123-9, 73037-9 ####[facility]ORATORYCLIA [id number] [address] CBC panel Auto (Bld)on 06-26 Erythrocyte distribution width (RBC) [Ratio] 15.9 % High 11.5-15.0 [facility] Comment on above: Order Comment: Speci men Type: BLOOD SPECIMENOrdering Facility: [facility] Address: [address] [place] [address] Performed By: #### 5 8410-2 ####[facility]ORATORYCLIA [id number] [address] Hematocrit (Bld) [Volume fraction] 29.8 % Low 39.0-51.0 [facility] Comment on above: Order Comment: Speci men Type: BLOOD SPECIMENOrdering Facility: [facility] Address: [address] [place] [address] Performed By: #### 5 8410-2 ####[facility]ORATORYCLIA [id number] [address] Hemoglobin (Bld) [Mass/Vol] 9.1 g/dL Low 13.0-17.0 [facility] Comment on above: Order Comment: Speci men Type: BLOOD SPECIMENOrdering Facility: [facility] Address: [address] [place] [address] Performed By: #### 5 8410-2 ####[facility]ORATORYCLIA [id number] [address] MCH (RBC) [Entitic mass] 27.8 pg Normal 26.0-34.0 [facility] Comment on above: Order Comment: Speci men Type: BLOOD SPECIMENOrdering Facility: [facility] Address: [address] [place] [address] Performed By: #### 5 8410-2 ####[facility]ORATORYCLIA [id number] [address] MCHC (RBC) [Mass/Vol] 30.5 g/dL Normal 30.5-36.0 [facility] Comment on above: Order Comment: Speci men Type: BLOOD SPECIMENOrdering Facility: [facility] Address: [address] [place] [address] Performed By: #### 5 8410-2 ####[facility]ORATORYCLIA [id number] [address] MCV (RBC) [Entitic vol] 91.1 fL Normal 80.0-100.0 [facility] Comment on above: Order Comment: Speci men Type: BLOOD SPECIMENOrdering Facility: [facility] Address: [address] [place] [address] Performed By: #### 5 8410-2 ####[facility]ATORYCLIA [id number] [address] Nucleated RBC (Bld) [#/Vol] 10*3/uL Normal <0.01 [facility] Comment on above: Order Comment: Speci men Type: BLOOD SPECIMENOrdering Facility: [facility] Address: [address] [place] [address] Performed By: #### 5 8410-2 ####[facility]ORATORYCLIA [id number] [address] Platelet mean volume (Bld) [Entitic vol] 10.3 fL Normal 9.0-12.7 [facility] Comment on above: Order Comment: Speci men Type: BLOOD SPECIMENOrdering Facility: [facility] Address: [address] [place] [address] Performed By: #### 5 8410-2 ####[facility]ORATORYCLIA [id number] [address] OF [facility] Platelets (Bld) [#/Vol] 336 10*3/uL Normal 150-400 [facility] Comment on above: Order Comment: Speci men Type: BLOOD SPECIMENOrdering Facility: [facility] Address: [address] [place] [address] Performed By: #### 5 8410-2 ####[facility]ORATORYCLIA [id number] [place] [address] [place] RBC (Bld) [#/Vol] 3.27 10*6/uL Low 4.20-6.00 [facility] Comment on above: Order Comment: Speci men Type: BLOOD SPECIMENOrdering Facility: [facility] Address: [address] [place] [address] Performed By: #### 5 8410-2 ####[facility]ORATORYCLIA [id number] [address] WBC (Bld) [#/Vol] 9.14 10*3/uL Normal 3.70-11.00 [facility] Comment on above: Order Comment: Speci men Type: BLOOD SPECIMENOrdering Facility: [facility] Address: [address] [place] [address] Performed By: #### 5 8410-2 ####[facility]ATORYCLIA [id number] [address] CONSULT PROGon 06-26-2021 CONSULT PROG Normal [facility] Magnesium SerPl-mCncon 06-26 Magnesium [Mass/Vol] 2.2 mg/dL Normal 1.7-2.3 [facility] Comment on above: Order Comment: Speci men Type: BLOOD SPECIMENOrdering Facility: [facility] Address: [address] [place] [address] Performed By: #### 1 9123-9, 94232-1 ####[facility]ATORYCLIA [id number] [address] [place] NURSING PROGon 06-26-2021 NURSING PROG Normal [facility] NURSING PROG Normal [facility] Basic metabolic 2000 panelon 06-25-2021 Anion gap [Moles/Vol] 8 mmol/L Low 9-18 [facility] Comment on above: Order Comment: Speci men Type: BLOOD SPECIMENOrdering Facility: [facility] Address: [address] [place] [address] Performed By: #### 2 4321-2, ####[facility]ATORYCLIA [id number] [place] [address] [place] Calcium [Mass/Vol] 8.8 mg/dL Normal 8.5-10.2 [facility] Comment on above: Order Comment: Speci men Type: BLOOD SPECIMENOrdering Facility: [facility] Address: [address] [place] [address] Performed By: #### 2 4321-2, ####[facility]ATORYCLIA [id number] [place] [address] [place] Chloride [Moles/Vol] 105 mmol/L Normal 97-105 [facility] Comment on above: Order Comment: Speci men Type: BLOOD SPECIMENOrdering Facility: [facility] Address: [address] [place] [address] Performed By: #### 2 4320-2, ####[facility]ORATORYCLIA [id number] [place] [address] [place] CO2 [Moles/Vol] 27 mmol/L Normal 22-30 [facility] Comment on above: Order Comment: Speci men Type: BLOOD SPECIMENOrdering Facility: [facility] Address: [address] [place] [address] Performed By: #### 2 4320-2, ####[facility]ORATORYCLIA [id number] [place] [address] [place] Creatinine [Mass/Vol] 0.59 mg/dL Low 0.73-1.22 [facility] Comment on above: Order Comment: Speci men Type: BLOOD SPECIMENOrdering Facility: [facility] Address: [address] [phone] Performed By: #### 2 4321-2, 22305-3 ####[facility]PITALIA [id number] [place] [address] [place] GFR/1.73 sq M.predicted MDRD (S/P/Bld) [Vol rate/Area] mL/min/{1.73_m2} Normal [facility] Comment on above: Order Comment: Shira francia Type: BLOOD SPECIMENOrdering Facility: [facility] Address: [address] [place], [place] [phone] Result Comment: >60e GFR (Estimated GFR) Units [...] actual GFR. Performed By: #### 2 4321-2, 73177-0 ####[facility] HOSPITALIA [id number] [place] [address] [place] Glucose [Mass/Vol] 132 mg/dL High 74-99 [facility] Comment on above: Order Comment: Shira farncia Type: BLOOD SPECIMENOrdering Facility: [facility] Address: [address] [phone] Result Comment: The [place] [employer] (ADA) provides guidance for cutoff [...] Standards of Medical Care in Diabetes 2016, [place] [employer]. Diabetes Care. 2016.39(Suppl 1). Performed By: #### 2 1-2, ####[facility]ORATORYCLIA [id number] [address] STATES OF [facility] Potassium [Moles/Vol] 3.9 mmol/L Normal 3.7-5.1 [facility] Comment on above: Order Comment: Speci men Type: BLOOD SPECIMENOrdering Facility: [facility] Address: [address] [place] [address] Performed By: #### 2 4320-06, ####[facility]ORATORYCLIA [id number] [address] [place] [facility] Sodium [Moles/Vol] 140 mmol/L Normal 136-144 [facility] Comment on above: Order Comment: Shira feldman Type: BLOOD SPECIMENOrdering Facility: [facility] Address: [address] [place] [address] Performed By: #### 2 4320-06, ####[facility]ORATORYCLIA [id number] [address] [place] [facility] Urea nitrogen [Mass/Vol] 24 mg/dL Normal 9-24 [facility] Comment on above: Order Comment: Shira feldman Type: BLOOD SPECIMENOrdering Facility: [facility] Address: [address] [place] [address] Performed By: #### 2 4320-06, ####[facility]ORATORYCLIA [id number] [address] [place] CASE MANAGEMon 06-25-2021 CASE MANAGEM Normal [facility] CBC panel Auto (Bld)on 06-25 Erythrocyte distribution width (RBC) [Ratio] 15.9 % High 11.5-15.0 [facility] Comment on above: Order Comment: Shira men Type: BLOOD SPECIMENOrdering Facility: [facility] Address: [address] [place] [address] Performed By: #### 5 8410-2 ####[facility] LABORATORYCLIA [id number] [address] Hematocrit (Bld) [Volume fraction] 31.0 % Low 39.0-51.0 [facility] Comment on above: Order Comment: Speci men Type: BLOOD SPECIMENOrdering Facility: [facility] Address: [address] [place] [address] Performed By: #### 5 8410-2 ####[facility]ORATORYCLIA [id number] [address] Hemoglobin (Bld) [Mass/Vol] 9.4 g/dL Low 13.0-17.0 [facility] Comment on above: Order Comment: Speci men Type: BLOOD SPECIMENOrdering Facility: [facility] Address: [address] [place] [address] Performed By: #### 5 8410-2 ####[facility]ORATORYCLIA [id number] [address] MCH (RBC) [Entitic mass] 28.1 pg Normal 26.0-34.0 [facility] Comment on above: Order Comment: Speci men Type: BLOOD SPECIMENOrdering Facility: [facility] Address: [address] [place] [address] Performed By: #### 5 8410-2 ####[facility]ORATORYCLIA [id number] [address] [place] MCHC (RBC) [Mass/Vol] 30.3 g/dL Low 30.5-36.0 [facility] Comment on above: Order Comment: Speci men Type: BLOOD SPECIMENOrdering Facility: [facility] Address: [address] [place] [address] Performed By: #### 5 8410-2 ####[facility]ORATORYCLIA [id number] [place] [address] [place] MCV (RBC) [Entitic vol] 92.5 fL Normal 80.0-100.0 [facility] Comment on above: Order Comment: Speci men Type: BLOOD SPECIMENOrdering Facility: [facility] Address: [address] [address] Performed By: #### 5 8410-2 ####[facility]ORATORYCLIA [id number] [address] [place] Nucleated RBC (Bld) [#/Vol] 10*3/uL Normal <0.01 [facility] Comment on above: Order Comment: Speci men Type: BLOOD SPECIMENOrdering Facility: [facility] Address: [address] [place] [address] Performed By: #### 5 8410-2 ####[facility]ATORYCLIA [id number] [address] [place] Platelet mean volume (Bld) [Entitic vol] 10.5 fL Normal 9.0-12.7 [facility] Comment on above: Order Comment: Speci men Type: BLOOD SPECIMENOrdering Facility: [facility] Address: [address] [place] [address] Performed By: #### 5 8410-2 ####[facility]ORATORYCLIA [id number] [address] [place] Platelets (Bld) [#/Vol] 311 10*3/uL Normal 150-400 [facility] Comment on above: Order Comment: Speci men Type: BLOOD SPECIMENOrdering Facility: [facility] Address: [address] [address] Performed By: #### 5 8410-2 ####[facility]ORATORYCLIA [id number] [address] [place] RBC (Bld) [#/Vol] 3.35 10*6/uL Low 4.20-6.00 [facility] Comment on above: Order Comment: Speci men Type: BLOOD SPECIMENOrdering Facility: [facility] Address: [address] [place] [address] Performed By: #### 5 8410-2 ####[facility]ORATORYCLIA [id number] [place] [address] [place] WBC (Bld) [#/Vol] 9.57 10*3/uL Normal 3.70-11.00 [facility] Comment on above: Order Comment: Speci men Type: BLOOD SPECIMENOrdering Facility: [facility] Address: [address] [place] [address] Performed By: #### 5 8410-2 ####[facility]ORATORYCLIA [id number] [address] [place] Magnesium SerPl-mCncon 06-25 Magnesium [Mass/Vol] 2.4 mg/dL High 1.7-2.3 [facility] Comment on above: Order Comment: Speci men Type: BLOOD SPECIMENOrdering Facility: [facility] Address: [address] [place] [address] Performed By: #### 2 4321-2, 26998-3 ####[facility]ATORYCLIA [id number] [address] [place] Basic metabolic 2000 panelon 06-24-2021 Anion gap [Moles/Vol] 9 mmol/L Normal 9-18 [facility] Comment on above: Order Comment: Speci men Type: BLOOD SPECIMENOrdering Facility: [facility] Address: [address] [place] [address] Performed By: #### 1 9123-9, 06539-0 ####[facility]ORATORYCLIA [id number] [place] [address] [place] Calcium [Mass/Vol] 8.6 mg/dL Normal 8.5-10.2 [facility] Comment on above: Order Comment: Speci men Type: BLOOD SPECIMENOrdering Facility: [facility] Address: [address] [place] [address] Performed By: #### 1 9123-9, 60200-4 ####[facility]ATORYCLIA [id number] [place] [address] [place] Chloride [Moles/Vol] 103 mmol/L Normal 97-105 [facility] Comment on above: Order Comment: Speci men Type: BLOOD SPECIMENOrdering Facility: [facility] Address: [address] [place] [address] Performed By: #### 1 9123-9, 36588-5 ####[facility]ORATORYCLIA [id number] [place] [address] [place] CO2 [Moles/Vol] 26 mmol/L Normal 22-30 [facility] Comment on above: Order Comment: Speci men Type: BLOOD SPECIMENOrdering Facility: [facility] Address: [address] [place] [address] Performed By: #### 1 9123-9, 90675-1 ####[facility]CL[facility] [id number] [address] [place] Creatinine [Mass/Vol] 0.60 mg/dL Low 0.73-1.22 [facility] Comment on above: Order Comment: Speci men Type: BLOOD SPECIMENOrdering Facility: [facility] Address: [address] [place] [address] Performed By: #### 1 9123-9, 98302-3 ####[facility]ATORYCLIA [id number] [place] [address] [place] GFR/1.73 sq M.predicted MDRD (S/P/Bld) [Vol rate/Area] mL/min/{1.73_m2} Normal [facility] Comment on above: Order Comment: Speci men Type: BLOOD SPECIMENOrdering Facility: [facility] Address: [address] [place] [address] Result Comment: >60e GFR (Estimated GFR) Units [...] actual GFR. Performed By: #### 1 9123-9, 22465-0 ####[facility]ATORYCLIA [id number] [place] [address] [place] Glucose [Mass/Vol] 126 mg/dL High 74-99 [facility] Comment on above: Order Comment: Speci men Type: BLOOD SPECIMENOrdering Facility: [facility] Address: [address] [place], [place] [phone] Result Comment: The [place] [employer] (ADA) provides guidance for cutoff [...] Standards of Medical Care in Diabetes 2016, [place] [employer]. Diabetes Care. 2016.39(Suppl 1). Performed By: #### 1 9123-9, 70512-8 ####[facility]ORATORYCLIA [id number] [place] [address] [place] Potassium [Moles/Vol] 3.9 mmol/L Normal 3.7-5.1 [facility] Comment on above: Order Comment: Speci [facility] Type: BLOOD SPECIMENOrdering Facility: [facility] Address: [address] [place] [address] Performed By: #### 1 9123-9, 05250-2 ####[facility]ORATORYCLIA [id number] [place] [address] [place] Sodium [Moles/Vol] 138 mmol/L Normal 136-144 [facility] Comment on above: Order Comment: Speci men Type: BLOOD SPECIMENOrdering Facility: [facility] Address: [address] [place] [address] Performed By: #### 1 9123-9, 26616-7 ####[facility]ORATORYCLIA [id number] [address] [place] Urea nitrogen [Mass/Vol] 24 mg/dL Normal 9-24 [facility] Comment on above: Order Comment: Speci men Type: BLOOD SPECIMENOrdering Facility: [facility] Address: [address] [place] [address] Performed By: #### 1 9123-9, 56156-2 ####[facility] LABORATORYCLIA [id number] [address] CASE MANAGEMon 06-24-2021 CASE MANAGEM Normal [facility] CASE MANAGEM Normal [facility] CASE MANAGEM Normal [facility] CBC panel Auto (Bld)on 06-24 Erythrocyte distribution width (RBC) [Ratio] 16.1 % High 11.5-15.0 [facility] Comment on above: Order Comment: Speci men Type: BLOOD SPECIMENOrdering Facility: [facility] Address: [address] [place] [address] Performed By: #### 5 8410-2 ####[facility] LABORATORYCLIA [id number] [address] [place] Hematocrit (Bld) [Volume fraction] 31.7 % Low 39.0-51.0 [facility] Comment on above: Order Comment: Speci men Type: BLOOD SPECIMENOrdering Facility: [facility] Address: [address] [place] [address] Performed By: #### 5 8410-2 ####[facility] LABORATORYCLIA [id number] [address] [place] Hemoglobin (Bld) [Mass/Vol] 9.7 g/dL Low 13.0-17.0 [facility] Comment on above: Order Comment: Speci men Type: BLOOD SPECIMENOrdering Facility: [facility] Address: [address] [place] [address] Performed By: #### 5 8410-2 ####[facility] LABORATORYCLIA [id number] [address] MCH (RBC) [Entitic mass] 28.0 pg Normal 26.0-34.0 [facility] Comment on above: Order Comment: Speci men Type: BLOOD SPECIMENOrdering Facility: [facility] Address: [address] [place] [address] Performed By: #### 5 8410-2 ####[facility] LABORATORYCLIA [id number] [address] MCHC (RBC) [Mass/Vol] 30.6 g/dL Normal 30.5-36.0 [facility] Comment on above: Order Comment: Speci men Type: BLOOD SPECIMENOrdering Facility: [facility] Address: [address] [place] [address] Performed By: #### 5 8410-2 ####[facility] LABORATORYCLIA [id number] [address] MCV (RBC) [Entitic vol] 91.4 fL Normal 80.0-100.0 [facility] Comment on above: Order Comment: Speci men Type: BLOOD SPECIMENOrdering Facility: [facility] Address: [address] [place] [address] Performed By: #### 5 8410-2 ####[facility] LABORATORYCLIA [id number] [address] Nucleated RBC (Bld) [#/Vol] 10*3/uL Normal <0.01 [facility] Comment on above: Order Comment: Speci men Type: BLOOD SPECIMENOrdering Facility: [facility] Address: [address] [place] [address] Performed By: #### 5 8410-2 ####[facility] LABORATORYCLIA [id number] [place] [address] [place] Platelet mean volume (Bld) [Entitic vol] 11.0 fL Normal 9.0-12.7 [facility] Comment on above: Order Comment: Speci men Type: BLOOD SPECIMENOrdering Facility: [facility] Address: [address] [place] [address] Performed By: #### 5 8410-2 ####[facility]ORATORYCLIA [id number] [address] [place] Platelets (Bld) [#/Vol] 358 10*3/uL Normal 150-400 [facility] Comment on above: Order Comment: Speci men Type: BLOOD SPECIMENOrdering Facility: [facility] Address: [address] [place] [address] Performed By: #### 5 8410-2 ####[facility] LABORATORYCLIA [id number] [place] [address] [place] RBC (Bld) [#/Vol] 3.47 10*6/uL Low 4.20-6.00 [facility] Comment on above: Order Comment: Speci men Type: BLOOD SPECIMENOrdering Facility: [facility] Address: [address] [place] [address] Performed By: #### 5 8410-2 ####[facility] LABORATORYCLIA [id number] [address] [place] WBC (Bld) [#/Vol] 10.07 10*3/uL Normal 3.70-11.00 [facility] Comment on above: Order Comment: Speci men Type: BLOOD SPECIMENOrdering Facility: [facility] Address: [address] [place] [address] Performed By: #### 5 8410-2 ####[facility] LABORATORYCLIA [id number] [address] [place] Magnesium SerPl-mCncon 06-24 Magnesium [Mass/Vol] 2.3 mg/dL Normal 1.7-2.3 [facility] Comment on above: Order Comment: Speci men Type: BLOOD SPECIMENOrdering Facility: [facility] Address: [address] [place] [address] Performed By: #### 1 9123-9, 67507-0 ####[facility]ORATORYCLIA [id number] [place] [address] [place] ALLIED HEALTHon 06-23-2021 ALLIED HEALTH Normal [facility] Basic metabolic 2000 panelon 06-23-2021 Anion gap [Moles/Vol] 9 mmol/L Normal 9-18 [facility] Comment on above: Order Comment: Speci men Type: BLOOD SPECIMENOrdering Facility: [facility] Address: [address] [place] [address] Performed By: #### 1 9123-9, 02024-2 ####[facility] LABORATORYCLIA [id number] [place] [address] [place] Calcium [Mass/Vol] 8.4 mg/dL Low 8.5-10.2 [facility] Comment on above: Order Comment: Speci men Type: BLOOD SPECIMENOrdering Facility: [facility] Address: [address] [place] [address] Performed By: #### 1 9123-9, 42749-5 ####[facility] LABORATORYCLIA [id number] [place] [address] [place] Chloride [Moles/Vol] 104 mmol/L Normal 97-105 [facility] Comment on above: Order Comment: Speci men Type: BLOOD SPECIMENOrdering Facility: [facility] Address: [address] [place] [address] Performed By: #### 1 9123-9, 46085-5 ####[facility]ORATORYCLIA [id number] [place] [address] [place] CO2 [Moles/Vol] 26 mmol/L Normal 22-30 [facility] Comment on above: Order Comment: Speci men Type: BLOOD SPECIMENOrdering Facility: [facility] Address: [address] [place] [address] Performed By: #### 1 9123-9, 54825-2 ####[facility]ITALCLIA [id number] [place] [address] [place] Creatinine [Mass/Vol] 0.62 mg/dL Low 0.73-1.22 [facility] Comment on above: Order Comment: Johncara feldman Type: BLOOD SPECIMENOrdering Facility: [facility] Address: [address] [place] [address] Performed By: #### 1 9123-9, 00514-6 ####[facility]OSPITALIA [id number] [place] [id number] [place] GFR/1.73 sq M.predicted MDRD (S/P/Bld) [Vol rate/Area] mL/min/{1.73_m2} Normal [facility] Comment on above: Order Comment: [facility] Type: BLOOD SPECIMENOrdering Facility: [facility] Address: [address] [place] [address] Result Comment: >60e GFR (Estimated GFR) Units [...] actual GFR. Performed By: #### 1 9123-9, 83842-7 ####[facility] HOSPITALIA [id number] [place] [address] [place] Glucose [Mass/Vol] 111 mg/dL High 74-99 [facility] Comment on above: Order Comment: Shira francia Type: BLOOD SPECIMENOrdering Facility: [facility] Address: [address] [address] Result Comment: The [place] [employer] (ADA) provides guidance for cutoff [...] Standards of Medical Care in Diabetes 2016, [place] [employer]. Diabetes Care. 2016.39(Suppl 1). Performed By: #### 1 9123-9, 45052-1 ####[facility]ORATORYCLIA [id number] [place] [address] [place] Potassium [Moles/Vol] 4.1 mmol/L Normal 3.7-5.1 [facility] Comment on above: Order Comment: Shria feldman Type: BLOOD SPECIMENOrdering Facility: [facility] Address: [address] [place] [address] Performed By: #### 1 91239, 41035-0 ####[facility]OSPITALCLIA [id number] [address] STATES OF [facility] Sodium [Moles/Vol] 139 mmol/L Normal 136-144 [facility] Comment on above: Order Comment: Shira feldman Type: BLOOD SPECIMENOrdering Facility: [facility] Address: [address] [place] [address] Performed By: #### 1 9123-9, 86216-1 ####[facility] LABORATORYCLIA [id number] [address] [place] Urea nitrogen [Mass/Vol] 26 mg/dL High 9-24 [facility] Comment on above: Order Comment: Shira feldman Type: BLOOD SPECIMENOrdering Facility: [facility] Address: [address] [place] [address] Performed By: #### 1 9123-9, 22599-5 ####[facility]ORATORYCLIA [id number] [address] [place] CASE MANAGEMon 06-23-2021 CASE MANAGEM Normal [facility] CBC panel Auto (Bld)on 06-23 Erythrocyte distribution width (RBC) [Ratio] 16.0 % High 11.5-15.0 [facility] Comment on above: Order Comment: Speci men Type: BLOOD SPECIMENOrdering Facility: [facility] Address: [address] [place] [address] Performed By: #### 5 8410-2 ####[facility] LABORATORYCLIA [id number] [address] Hematocrit (Bld) [Volume fraction] 31.1 % Low 39.0-51.0 [facility] Comment on above: Order Comment: Speci men Type: BLOOD SPECIMENOrdering Facility: [facility] Address: [address] [place] [address] Performed By: #### 5 8410-2 ####[facility]ORATORYCLIA [id number] [address] OF [facility] Hemoglobin (Bld) [Mass/Vol] 9.5 g/dL Low 13.0-17.0 [facility] Comment on above: Order Comment: Speci men Type: BLOOD SPECIMENOrdering Facility: [facility] Address: [address] [place] [address] Performed By: #### 5 8410-2 ####[facility]ORATORYCLIA [id number] [address] STATES [facility] MCH (RBC) [Entitic mass] 28.1 pg Normal 26.0-34.0 [facility] Comment on above: Order Comment: Speci men Type: BLOOD SPECIMENOrdering Facility: [facility] Address: [address] [place] [address] Performed By: #### 5 8410-2 ####[facility] LABORATORYCLIA [id number] [address] MCHC (RBC) [Mass/Vol] 30.5 g/dL Normal 30.5-36.0 [facility] Comment on above: Order Comment: Speci men Type: BLOOD SPECIMENOrdering Facility: [facility] Address: [address] [address] Performed By: #### 5 8410-2 ####[facility] LABORATORYCLIA [id number] [address] MCV (RBC) [Entitic vol] 92.0 fL Normal 80.0-100.0 [facility] Comment on above: Order Comment: Speci men Type: BLOOD SPECIMENOrdering Facility: [facility] Address: [address] [place] [address] Performed By: #### 5 8410-2 ####[facility]ORATORYCLIA [id number] [address] Nucleated RBC (Bld) [#/Vol] 10*3/uL Normal <0.01 [facility] Comment on above: Order Comment: Speci men Type: BLOOD SPECIMENOrdering Facility: [facility] Address: [address] [place] [address] Performed By: #### 5 8410-2 ####[facility] LABORATORYCLIA [id number] [address] STATES [facility] Platelet mean volume (Bld) [Entitic vol] 11.0 fL Normal 9.0-12.7 [facility] Comment on above: Order Comment: Speci men Type: BLOOD SPECIMENOrdering Facility: [facility] Address: [address] [place] [address] Performed By: #### 5 8410-2 ####[facility] LABORATORYCLIA [id number] [address] Platelets (Bld) [#/Vol] 361 10*3/uL Normal 150-400 [facility] Comment on above: Order Comment: Speci men Type: BLOOD SPECIMENOrdering Facility: [facility] Address: [address] [place] [address] Performed By: #### 5 8410-2 ####[facility]ORATORYCLIA [id number] [place] [address] [place] RBC (Bld) [#/Vol] 3.38 10*6/uL Low 4.20-6.00 [facility] Comment on above: Order Comment: Speci men Type: BLOOD SPECIMENOrdering Facility: [facility] Address: [address] [place] [address] Performed By: #### 5 8410-2 ####[facility] LABORATORYCLIA [id number] [address] OF [facility] WBC (Bld) [#/Vol] 9.02 10*3/uL Normal 3.70-11.00 [facility] Comment on above: Order Comment: Speci men Type: BLOOD SPECIMENOrdering Facility: [facility] Address: [address] [place] [address] Performed By: #### 5 8410-2 ####[facility]ORATORYCLIA [id number] [address] CONSULT PROGon 06-23-2021 CONSULT PROG Normal [facility] CONSULT PROG Normal [facility] Magnesium SerPl-mCncon 06-23 Magnesium [Mass/Vol] 2.4 mg/dL High 1.7-2.3 [facility] Comment on above: Order Comment: Speci men Type: BLOOD SPECIMENOrdering Facility: [facility] Address: [address] [place] [address] Performed By: #### 1 9123-9, 82271-8 ####[facility]ORATORYCLIA [id number] [address] [place] THERAPY NTon 06-23-2021 THERAPY NT Normal [facility] Vancomycin random [Mass/Vol] on 06-23-2021 Vancomycin [Mass/Vol] 22.8 ug/mL High 10.0-20.0 [facility] Comment on above: Order Comment: Speci men Type: BLOOD SPECIMENOrdering Facility: [facility] Address: [address] [place] [address] Result Comment: Refe rence ranges and high/low indicator flags are provided as general guidelines only. The treating physician must determine appropriate target levels/dosing based on the specific clinical situation. Performed By: #### 4 091-5 ####[facility]ORATORYCLIA [id number] [address] [place] XR MOD BARIUM SWALLOW W SPEE Lore 06-23-2021 XR MOD BARIUM SWALLOW W SPEECH Normal [facility] Basic metabolic 2000 panelon 06-22-2021 Anion gap [Moles/Vol] 6 mmol/L Low 9-18 [facility] Comment on above: Order Comment: Speci men Type: BLOOD SPECIMENOrdering Facility: [facility] Address: [address] [place] [address] Performed By: #### 2 432-2, ####[facility]ORATORYCLIA [id number] [address] [place] Calcium [Mass/Vol] 8.5 mg/dL Normal 8.5-10.2 [facility] Comment on above: Order Comment: Speci men Type: BLOOD SPECIMENOrdering Facility: [facility] Address: [address] [place] [address] Performed By: #### 2 4320-2, ####[facility] LABORATORYCLIA [id number] [address] [place] Chloride [Moles/Vol] 105 mmol/L Normal 97-105 [facility] Comment on above: Order Comment: Speci men Type: BLOOD SPECIMENOrdering Facility: [facility] Address: [address] [place] [address] Performed By: #### 2 432-2, ####[facility] LABORATORYCLIA [id number] [place] [address] [place] CO2 [Moles/Vol] 26 mmol/L Normal 22-30 [facility] Comment on above: Order Comment: Speci men Type: BLOOD SPECIMENOrdering Facility: [facility] Address: [address] [place] [address] Performed By: #### 2 432-2, ####[facility]PITALCLIA [id number] [place] [id number] [place] Creatinine [Mass/Vol] 0.56 mg/dL Low 0.73-1.22 [facility] Comment on above: Order Comment: Johncara feldman Type: BLOOD SPECIMENOrdering Facility: [facility] Address: [address] [place] [address] Performed By: #### 2 432-2, ####[facility]OSPITALCLIA [id number] [place] [address] [place] GFR/1.73 sq M.predicted MDRD (S/P/Bld) [Vol rate/Area] mL/min/{1.73_m2} Normal [facility] Comment on above: Order Comment: [employer] Type: BLOOD SPECIMENOrdering Facility: [facility] Address: [address] [place] [address] Result Comment: >60e GFR (Estimated GFR) Units [...] actual GFR. Performed By: #### 2 4321-2, ####[facility] LABORATORYCLIA [id number] [place] [address] [place] Glucose [Mass/Vol] 120 mg/dL High 74-99 [facility] Comment on above: Order Comment: Shira francia Type: BLOOD SPECIMENOrdering Facility: [facility] Address: [address] [address] Result Comment: The [place] [employer] (ADA) provides guidance for cutoff [...] Standards of Medical Care in Diabetes 2016, [place] [employer]. Diabetes Care. 2016.39(Suppl 1). Performed By: #### 2 4320-06, ####[facility]ORATORYCLIA [id number] [place] [address] [place] Potassium [Moles/Vol] 4.0 mmol/L Normal 3.7-5.1 [facility] Comment on above: Order Comment: Shira feldman Type: BLOOD SPECIMENOrdering Facility: [facility] Address: [address] [place] [address] Performed By: #### 2 4320-06, ####[facility]PITALCLIA [id number] [address] STATES OF [facility] Sodium [Moles/Vol] 137 mmol/L Normal 136-144 [facility] Comment on above: Order Comment: Shira feldman Type: BLOOD SPECIMENOrdering Facility: [facility] Address: [address] [place] [address] Performed By: #### 2 4320-06, ####[facility]ORATORYCLIA [id number] [address] [place] Urea nitrogen [Mass/Vol] 25 mg/dL High 9-24 [facility] Comment on above: Order Comment: Shira feldman Type: BLOOD SPECIMENOrdering Facility: [facility] Address: [address] [place] [address] Performed By: #### 2 4320-06, ####[facility]ORATORYCLIA [id number] [address] [place] CASE MANAGEMon 06-22-2021 CASE MANAGEM Normal [facility] CBC panel Auto (Bld)on 06-22 Erythrocyte distribution width (RBC) [Ratio] 16.0 % High 11.5-15.0 [facility] Comment on above: Order Comment: Speci men Type: BLOOD SPECIMENOrdering Facility: [facility] Address: [address] [place] [address] Performed By: #### 5 8410-2 ####[facility]ORATORYCLIA [id number] [address] Hematocrit (Bld) [Volume fraction] 30.5 % Low 39.0-51.0 [facility] Comment on above: Order Comment: Speci men Type: BLOOD SPECIMENOrdering Facility: [facility] Address: [address] [place] [address] Performed By: #### 5 8410-2 ####[facility] LABORATORYCLIA [id number] [address] OF [facility] Hemoglobin (Bld) [Mass/Vol] 9.3 g/dL Low 13.0-17.0 [facility] Comment on above: Order Comment: Speci men Type: BLOOD SPECIMENOrdering Facility: [facility] Address: [address] [place] [address] Performed By: #### 5 8410-2 ####[facility]ORATORYCLIA [id number] [address] STATES [facility] MCH (RBC) [Entitic mass] 28.4 pg Normal 26.0-34.0 [facility] Comment on above: Order Comment: Speci men Type: BLOOD SPECIMENOrdering Facility: [facility] Address: [address] [place] [address] Performed By: #### 5 8410-2 ####[facility]ATORYCLIA [id number] [address] MCHC (RBC) [Mass/Vol] 30.5 g/dL Normal 30.5-36.0 [facility] Comment on above: Order Comment: Speci men Type: BLOOD SPECIMENOrdering Facility: [facility] Address: [address] [address] Performed By: #### 5 8410-2 ####[facility]ORATORYCLIA [id number] [address] MCV (RBC) [Entitic vol] 93.3 fL Normal 80.0-100.0 [facility] Comment on above: Order Comment: Speci men Type: BLOOD SPECIMENOrdering Facility: [facility] Address: [address] [place] [address] Performed By: #### 5 8410-2 ####[facility]ATORYCLIA [id number] [address] Nucleated RBC (Bld) [#/Vol] 10*3/uL Normal <0.01 [facility] Comment on above: Order Comment: Speci men Type: BLOOD SPECIMENOrdering Facility: [facility] Address: [address] [place] [address] Performed By: #### 5 8410-2 ####[facility]ORATORYCLIA [id number] [address] Platelet mean volume (Bld) [Entitic vol] 11.5 fL Normal 9.0-12.7 [facility] Comment on above: Order Comment: Speci men Type: BLOOD SPECIMENOrdering Facility: [facility] Address: [address] [place] [address] Performed By: #### 5 8410-2 ####[facility] LABORATORYCLIA [id number] [address] Platelets (Bld) [#/Vol] 346 10*3/uL Normal 150-400 [facility] Comment on above: Order Comment: Speci men Type: BLOOD SPECIMENOrdering Facility: [facility] Address: [address] [place] [address] Performed By: #### 5 8410-2 ####[facility] LABORATORYCLIA [id number] [address] [place] RBC (Bld) [#/Vol] 3.27 10*6/uL Low 4.20-6.00 [facility] Comment on above: Order Comment: Speci men Type: BLOOD SPECIMENOrdering Facility: [facility] Address: [address] [place] [address] Performed By: #### 5 8410-2 ####[facility]ORATORYCLIA [id number] [address] [place] WBC (Bld) [#/Vol] 9.44 10*3/uL Normal 3.70-11.00 [facility] Comment on above: Order Comment: Speci men Type: BLOOD SPECIMENOrdering Facility: [facility] Address: [address] [place] [address] Performed By: #### 5 8410-2 ####[facility]ORATORYCLIA [id number] [address] OF [facility] HEMOGLOBIN (HGB)on 2 Hemoglobin (Bld) [Mass/Vol] 9.7 g/dL Low 13.0-17.0 [facility] Comment on above: Order Comment: Speci men Type: BLOOD SPECIMENOrdering Facility: [facility] Address: [address] [place] [address] Performed By: #### H GB ####[facility] LABORATORYCLIA [id number] [address] OF [place] Magnesium SerPl-mCncon 06-22 Magnesium [Mass/Vol] 2.4 mg/dL High 1.7-2.3 [facility] Comment on above: Order Comment: Speci men Type: BLOOD SPECIMENOrdering Facility: [facility] Address: [address] [place] [address] Performed By: #### 2 4321-2, 13184-9 ####[facility]ORATORYCLIA [id number] [address] [place] THERAPY NTon 06-22-2021 THERAPY NT Normal [facility] THERAPY NT Normal [facility] aPTT PPPon 06-22-2021 aPTT Coag (PPP) [Time] 62.3 s High 23.0-32.[address] [facility] Comment on above: Order Comment: Speci men Type: BLOOD SPECIMENOrdering Facility: [facility] Address: [address] [place] [address] Performed By: #### [id number] ####[facility] LABORATORYCLIA [id number] [place] [address] [place] ALLIED HEALTHon 06-21-2021 ALLIED HEALTH Normal [facility] Basic metabolic 2000 panelon 06-21-2021 Anion gap [Moles/Vol] 8 mmol/L Low 9-18 [facility] Comment on above: Order Comment: Speci men Type: BLOOD SPECIMENOrdering Facility: [facility] Address: [address] [place] [address] Performed By: #### 2 4321-2, 20288-2 ####[facility]ORATORYCLIA [id number] [place] [address] [place] Calcium [Mass/Vol] 8.2 mg/dL Low 8.5-10.2 [facility] Comment on above: Order Comment: Speci men Type: BLOOD SPECIMENOrdering Facility: [facility] Address: [address] [place] [address] Performed By: #### 2 4321-2, ####[facility]ATORYCLIA [id number] [place] [address] [place] Chloride [Moles/Vol] 108 mmol/L High 97-105 [facility] Comment on above: Order Comment: Speci men Type: BLOOD SPECIMENOrdering Facility: [facility] Address: [address] [place] [address] Performed By: #### 2 4321-2, ####[facility]ATORYCLIA [id number] [place] [address] [place] CO2 [Moles/Vol] 24 mmol/L Normal 22-30 [facility] Comment on above: Order Comment: Speci men Type: BLOOD SPECIMENOrdering Facility: [facility] Address: [address] Performed By: #### 2 432-, ####[facility] [id number] [place] [address] [place] Creatinine [Mass/Vol] 0.61 mg/dL Low 0.73-1.22 [facility] Comment on above: Order Comment: Speci francia Type: BLOOD SPECIMENOrdering Facility: [facility] Address: [address] [address] Performed By: #### 2 43205-08, ####[facility]ITALIA [id number] [place] [address] [place] GFR/1.73 sq M.predicted MDRD (S/P/Bld) [Vol rate/Area] mL/min/{1.73_m2} Normal [facility] Comment on above: Order Comment: Shira feldman Type: BLOOD SPECIMENOrdering Facility: [facility] Address: [address] [place] [address] Result Comment: >60e GFR (Estimated GFR) Units [...] actual GFR. Performed By: #### 2 432-, ####[facility]ATORYCLIA [id number] [address] [place] Glucose [Mass/Vol] 211 mg/dL High 74-99 [facility] Comment on above: Order Comment: Speci francia Type: BLOOD SPECIMENOrdering Facility: [facility] Address: [address] [address] Result Comment: The [place] [employer] (ADA) provides guidance for cutoff [...] Standards of Medical Care in Diabetes 2016, [place] [employer]. Diabetes Care. 2016.39(Suppl 1). Performed By: #### 2 ####[facility]ATORYCLIA [id number] [place] [address] [place] Potassium [Moles/Vol] 4.3 mmol/L Normal 3.7-5.1 [facility] Comment on above: Order Comment: Speccara feldman Type: BLOOD SPECIMENOrdering Facility: [facility] Address: [address] [place], [place] [address] Performed By: #### 2 ####[facility]ATORYCLIA [id number] [place] [address] [place] Sodium [Moles/Vol] 140 mmol/L Normal 136-144 [facility] Comment on above: Order Comment: Speci men Type: BLOOD SPECIMENOrdering Facility: [facility] Address: [address] Performed By: #### 2 ####[facility]ATORYCLIA [id number] [place] [address] [place] Urea nitrogen [Mass/Vol] 26 mg/dL High 9-24 [facility] Comment on above: Order Comment: Johni men Type: BLOOD SPECIMENOrdering Facility: [facility] Address: [address] Performed By: #### 2 ####[facility]ORATORYCLIA [id number] [address] CBC panel Auto (Bld)on 06-21 Erythrocyte distribution width (RBC) [Ratio] 16.1 % High 11.5-15.0 [facility] Comment on above: Order Comment: Speci men Type: BLOOD SPECIMENOrdering Facility: [facility] Address: [address] [place] [address] Performed By: #### 5 8410-2 ####[facility]ATORYCLIA [id number] [address] Hematocrit (Bld) [Volume fraction] 29.7 % Low 39.0-51.0 [facility] Comment on above: Order Comment: Speci men Type: BLOOD SPECIMENOrdering Facility: [facility] Address: [address] [place] [address] Performed By: #### 5 8410-2 ####[facility]ATORYCLIA [id number] [address] Hemoglobin (Bld) [Mass/Vol] 9.2 g/dL Low 13.0-17.0 [facility] Comment on above: Order Comment: Speci men Type: BLOOD SPECIMENOrdering Facility: [facility] Address: [address] [place] [address] Performed By: #### 5 8410-2 ####[facility]ORATORYCLIA [id number] [address] STATES [facility] MCH (RBC) [Entitic mass] 28.8 pg Normal 26.0-34.0 [facility] Comment on above: Order Comment: Speci men Type: BLOOD SPECIMENOrdering Facility: [facility] Address: [address] [place] [address] Performed By: #### 5 8410-2 ####[facility]ATORYCLIA [id number] [address] [place] MCHC (RBC) [Mass/Vol] 31.0 g/dL Normal 30.5-36.0 [facility] Comment on above: Order Comment: Speci men Type: BLOOD SPECIMENOrdering Facility: [facility] Address: [address] Performed By: #### 5 8410-2 ####[facility]ORATORYCLIA [id number] [address] STATES OF [facility] MCV (RBC) [Entitic vol] 93.1 fL Normal 80.0-100.0 [facility] Comment on above: Order Comment: Speci men Type: BLOOD SPECIMENOrdering Facility: [facility] Address: [address] [place], [place] [address] Performed By: #### 5 8410-2 ####[facility]ATORYCLIA [id number] [address] [place] Nucleated RBC (Bld) [#/Vol] 10*3/uL Normal <0.01 [facility] Comment on above: Order Comment: Speci men Type: BLOOD SPECIMENOrdering Facility: [facility] Address: [address] Performed By: #### 5 8410-2 ####[facility]ORATORYCLIA [id number] [address] [place] Platelet mean volume (Bld) [Entitic vol] 11.6 fL Normal 9.0-12.7 [facility] Comment on above: Order Comment: Speci men Type: BLOOD SPECIMENOrdering Facility: [facility] Address: [address] [place], [place] [address] Performed By: #### 5 8410-2 ####[facility]ATORYCLIA [id number] [address] [place] Platelets (Bld) [#/Vol] 347 10*3/uL Normal 150-400 [facility] Comment on above: Order Comment: Speci men Type: BLOOD SPECIMENOrdering Facility: [facility] Address: [address] Performed By: #### 5 8410-2 ####[facility]ATORYCLIA [id number] [address] [place] RBC (Bld) [#/Vol] 3.19 10*6/uL Low 4.20-6.00 [facility] Comment on above: Order Comment: Speci men Type: BLOOD SPECIMENOrdering Facility: [facility] Address: [address] [place] [address] Performed By: #### 5 8410-2 ####[facility]ORATORYCLIA [id number] [address] OF [facility] WBC (Bld) [#/Vol] 10.29 10*3/uL Normal 3.70-11.00 [facility] Comment on above: Order Comment: Speci men Type: BLOOD SPECIMENOrdering Facility: [facility] Address: [address] [place] [address] Performed By: #### 5 8410-2 ####[facility]ORATORYCLIA [id number] [address] OF [facility] CONSULT PROGon 06-21-2021 CONSULT PROG Normal [facility] CONSULT PROG Normal [facility] Magnesium SerPl-mCncon 06-21 Magnesium [Mass/Vol] 2.5 mg/dL High 1.7-2.3 [facility] Comment on above: Order Comment: Speci men Type: BLOOD SPECIMENOrdering Facility: [facility] Address: [address] [place] [address] Performed By: #### 2 4321-2, 94011-7 ####[facility]ATORYCLIA [id number] [place] [address] [place] NUTRITIONon 06-21-2021 NUTRITION Normal [facility] XR CHEST 1V FRONTALon 2021 XR CHEST 1V FRONTAL Normal [facility] aPTT PPPon 06-21-2021 aPTT Coag (PPP) [Time] 68.5 s High 23.0-32.[address] [facility] [place] [facility] Comment on above: Order Comment: Speci men Type: BLOOD SPECIMENOrdering Facility: [facility] Address: [address] [address] Performed By: #### 1 4979-9 ####[facility]ORATORYCLIA [id number] [address] [place] aPTT Coag (PPP) [Time] 57.8 s High 23.0-32.[address] [facility] Comment on above: Order Comment: Speci men Type: BLOOD SPECIMENOrdering Facility: [facility] Address: [address] [place] [address] Performed By: #### 1 4979-9 ####[facility]ATORYCLIA [id number] [address] [place] Basic metabolic 2000 panelon 06-20-2021 Anion gap [Moles/Vol] 9 mmol/L Normal 9-18 [facility] Comment on above: Order Comment: Speci men Type: BLOOD SPECIMENOrdering Facility: [facility] Address: [address] [place] [address] Performed By: #### 2 4321-2, ####[facility]ATORYCLIA [id number] [place] [address] [place] Calcium [Mass/Vol] 8.3 mg/dL Low 8.5-10.2 [facility] Comment on above: Order Comment: Speci men Type: BLOOD SPECIMENOrdering Facility: [facility] Address: [address] [place] [address] Performed By: #### 2 432-2, ####[facility]ATORYCLIA [id number] [address] [place] Chloride [Moles/Vol] 111 mmol/L High 97-105 [facility] Comment on above: Order Comment: Speci men Type: BLOOD SPECIMENOrdering Facility: [facility] Address: [address] [place] [address] Performed By: #### 2 4321-2, ####[facility]ATORYCLIA [id number] [address] [place] CO2 [Moles/Vol] 24 mmol/L Normal 22-30 [facility] Comment on above: Order Comment: Shira feldman Type: BLOOD SPECIMENOrdering Facility: [facility] Address: [address] [place] [address] Performed By: #### 2 4321-2, ####[facility]ATORYCLIA [id number] [place] [address] [place] Creatinine [Mass/Vol] 0.64 mg/dL Low 0.73-1.22 [facility] Comment on above: Order Comment: Shira feldman Type: BLOOD SPECIMENOrdering Facility: [facility] Address: [address] [place] [address] Performed By: #### 2 432-, ####[facility]ATORYCLIA [id number] [address] [place] GFR/1.73 sq M.predicted MDRD (S/P/Bld) [Vol rate/Area] mL/min/{1.73_m2} Normal [facility] Comment on above: Order Comment: Shira francia Type: BLOOD SPECIMENOrdering Facility: [facility] Address: [address] [place] [address] Result Comment: >60e GFR (Estimated GFR) Units [...] actual GFR. Performed By: #### 2 4321-, ####[facility]ATORYCLIA [id number] [place] [address] [place] Glucose [Mass/Vol] 114 mg/dL High 74-99 [facility] Comment on above: Order Comment: Shira feldman Type: BLOOD SPECIMENOrdering Facility: [facility] Address: [address] [place], [place] [phone] Result Comment: The [place] [employer] (ADA) provides guidance for cutoff [...] Standards of Medical Care in Diabetes 2016, [place] [employer]. Diabetes Care. 2016.39(Suppl 1). Performed By: #### 2 43205-08, ####[facility]ATORYCLIA [id number] [place] [address] [place] Potassium [Moles/Vol] 4.1 mmol/L Normal 3.7-5.1 [facility] Comment on above: Order Comment: Shira feldman Type: BLOOD SPECIMENOrdering Facility: [facility] Address: [address] Performed By: #### 2 4320-06, ####[facility]ATORYCLIA [id number] [place] [address] [place] Sodium [Moles/Vol] 144 mmol/L Normal 136-144 [facility] Comment on above: Order Comment: Johni men Type: BLOOD SPECIMENOrdering Facility: [facility] Address: [address] [id number] Performed By: #### 2 4320-06, ####[facility]ATORYCLIA [id number] [place] [address] [place] Urea nitrogen [Mass/Vol] 27 mg/dL High 9-24 [facility] Comment on above: Order Comment: Johni men Type: BLOOD SPECIMENOrdering Facility: [facility] Address: [address] [place] [address] Performed By: #### 2 4321-2, 09479-6 ####[facility]ATORYCLIA [id number] [address] CASE MANAGEMon 06-20-2021 CASE MANAGEM Normal [facility] CBC panel Auto (Bld)on 06-20 Erythrocyte distribution width (RBC) [Ratio] 15.9 % High 11.5-15.0 [facility] Comment on above: Order Comment: Speci men Type: BLOOD SPECIMENOrdering Facility: [facility] Address: [address] [place] [address] Performed By: #### 5 8410-2 ####[facility]ORATORYCLIA [id number] [address] [place] [facility] Hematocrit (Bld) [Volume fraction] 31.0 % Low 39.0-51.0 [facility] Comment on above: Order Comment: Speci men Type: BLOOD SPECIMENOrdering Facility: [facility] Address: [address] [place] [address] Performed By: #### 5 8410-2 ####[facility]ATORYCLIA [id number] [address] Hemoglobin (Bld) [Mass/Vol] 9.2 g/dL Low 13.0-17.0 [facility] Comment on above: Order Comment: Speci men Type: BLOOD SPECIMENOrdering Facility: [facility] Address: [address] [place] [address] Performed By: #### 5 8410-2 ####[facility]ATORYCLIA [id number] [address] MCH (RBC) [Entitic mass] 27.4 pg Normal 26.0-34.0 [facility] Comment on above: Order Comment: Speci men Type: BLOOD SPECIMENOrdering Facility: [facility] Address: [address] [place] [address] Performed By: #### 5 8410-2 ####[facility]ATORYCLIA [id number] [address] [place] [facility] MCHC (RBC) [Mass/Vol] 29.7 g/dL Low 30.5-36.0 [facility] Comment on above: Order Comment: Speci men Type: BLOOD SPECIMENOrdering Facility: [facility] Address: [address] [place] [address] Performed By: #### 5 8410-2 ####[facility]ATORYCLIA [id number] [address] MCV (RBC) [Entitic vol] 92.3 fL Normal 80.0-100.0 [facility] Comment on above: Order Comment: Speci men Type: BLOOD SPECIMENOrdering Facility: [facility] Address: [address] [place] [address] Performed By: #### 5 8410-2 ####[facility]ATORYCLIA [id number] [address] Nucleated RBC (Bld) [#/Vol] 10*3/uL Normal <0.01 [facility] Comment on above: Order Comment: Speci men Type: BLOOD SPECIMENOrdering Facility: [facility] Address: [address] [place] [address] Performed By: #### 5 8410-2 ####[facility]ATORYCLIA [id number] [address] Platelet mean volume (Bld) [Entitic vol] 11.5 fL Normal 9.0-12.7 [facility] Comment on above: Order Comment: Speci men Type: BLOOD SPECIMENOrdering Facility: [facility] Address: [address] [place] [address] Performed By: #### 5 8410-2 ####[facility]ATORYCLIA [id number] [address] [place] Platelets (Bld) [#/Vol] 343 10*3/uL Normal 150-400 [facility] Comment on above: Order Comment: Speci men Type: BLOOD SPECIMENOrdering Facility: [facility] Address: [address] [place] [address] Performed By: #### 5 8410-2 ####[facility]ATORYCLIA [id number] [address] STATES OF [facility] RBC (Bld) [#/Vol] 3.36 10*6/uL Low 4.20-6.00 [facility] Comment on above: Order Comment: Speci men Type: BLOOD SPECIMENOrdering Facility: [facility] Address: [address] [place] [address] Performed By: #### 5 8410-2 ####[facility]ATORYCLIA [id number] [address] OF [facility] WBC (Bld) [#/Vol] 10.71 10*3/uL Normal 3.70-11.00 [facility] Comment on above: Order Comment: Speci men Type: BLOOD SPECIMENOrdering Facility: [facility] Address: [address] [place] [address] Performed By: #### 5 8410-2 ####[facility]ATORYCLIA [id number] [address] [place] CONSULT PROGon 06-20-2021 CONSULT PROG Normal [facility] HEMOGLOBIN (HGB)on 2 Hemoglobin (Bld) [Mass/Vol] 9.7 g/dL Low 13.0-17.0 [facility] Comment on above: Order Comment: Speci men Type: BLOOD SPECIMENOrdering Facility: [facility] Address: [address] [place] [address] Performed By: #### H GB ####[facility]ATORYCLIA [id number] [address] [place] Magnesium SerPl-mCncon 06-20 Magnesium [Mass/Vol] 2.5 mg/dL High 1.7-2.3 [facility] Comment on above: Order Comment: Speci men Type: BLOOD SPECIMENOrdering Facility: [facility] Address: [address] [place] [address] Performed By: #### 2 4321-2, 07166-2 ####[facility]ATORYCLIA [id number] [address] [place] NURSING PROGon 06-20-2021 NURSING PROG Normal [facility] THERAPY NTon 06-20-2021 THERAPY NT Normal [facility] aPTT PPPon 06-20-2021 aPTT Coag (PPP) [Time] 93.5 s High 23.0-32.[address] [facility] Comment on above: Order Comment: Speci men Type: BLOOD SPECIMENOrdering Facility: [facility] Address: [address] [place] [address] Performed By: #### 1 4979-9 ####[facility]ATORYCLIA [id number] [address] aPTT Coag (PPP) [Time] 47.1 s High 23.0-32.[address] [facility] Comment on above: Order Comment: Speci men Type: BLOOD SPECIMENOrdering Facility: [facility] Address: [address] [place] [address] Performed By: #### 1 4979-9 ####[facility]ATORYCLIA [id number] [place] [address] [place] Basic metabolic 2000 panelon 06-19-2021 Anion gap [Moles/Vol] 7 mmol/L Low 9-18 [facility] Comment on above: Order Comment: Speci men Type: BLOOD SPECIMENOrdering Facility: [facility] Address: [address] [place] [address] Performed By: #### 2 4321-2 ####[facility]ATORYCLIA [id number] [address] [place] Calcium [Mass/Vol] 8.1 mg/dL Low 8.5-10.2 [facility] Comment on above: Order Comment: Speci men Type: BLOOD SPECIMENOrdering Facility: [facility] Address: [address] [address] Performed By: #### 2 4321-2 ####[facility]ATORYCLIA [id number] [place] [address] [place] Chloride [Moles/Vol] 111 mmol/L High 97-105 [facility] Comment on above: Order Comment: Speci men Type: BLOOD SPECIMENOrdering Facility: [facility] Address: [address] [place] [address] Performed By: #### 2 4321-2 ####[facility]ATORYCLIA [id number] [place] [address] [place] CO2 [Moles/Vol] 24 mmol/L Normal 22-30 [facility] Comment on above: Order Comment: Speci men Type: BLOOD SPECIMENOrdering Facility: [facility] Address: [address] [place] [address] Performed By: #### 2 4321-2 ####[facility]ATORYCLIA [id number] [address] [place] Creatinine [Mass/Vol] 0.71 mg/dL Low 0.73-1.22 [facility] Comment on above: Order Comment: Speci men Type: BLOOD SPECIMENOrdering Facility: [facility] Address: [address] [place] [address] Performed By: #### 2 4321-2 ####[facility]ATORYCLIA [id number] [place] [address] [place] GFR/1.73 sq M.predicted MDRD (S/P/Bld) [Vol rate/Area] mL/min/{1.73_m2} Normal [facility] Comment on above: Order Comment: Speci men Type: BLOOD SPECIMENOrdering Facility: [facility] Address: [address] [place] [address] Result Comment: >60e GFR (Estimated GFR) Units [...] actual GFR. Performed By: #### 2 4321-2 ####[facility]ATORYCLIA [id number] [place] [address] [place] Glucose [Mass/Vol] 110 mg/dL High 74-99 [facility] Comment on above: Order Comment: Speci francia Type: BLOOD SPECIMENOrdering Facility: [facility] Address: [address] [place] [address] Result Comment: The [place] [employer] (ADA) provides guidance for cutoff [...] Standards of Medical Care in Diabetes 2016, [place] [employer]. Diabetes Care. 2016.39(Suppl 1). Performed By: #### 2 4321-2 ####[facility]ATORYCLIA [id number] [place] [address] [place] Potassium [Moles/Vol] 3.7 mmol/L Normal 3.7-5.1 [facility] Comment on above: Order Comment: Speccara men Type: BLOOD SPECIMENOrdering Facility: [facility] Address: [address] [id number] Performed By: #### 2 4321-2 ####[facility]ATORYCLIA [id number] [place] [address] [place] Sodium [Moles/Vol] 142 mmol/L Normal 136-144 [facility] Comment on above: Order Comment: Speci men Type: BLOOD SPECIMENOrdering Facility: [facility] Address: [address] [place] [address] Performed By: #### 2 4321-2 ####[facility]ATORYCLIA [id number] [place] [address] [place] Urea nitrogen [Mass/Vol] 26 mg/dL High 9-24 [facility] Comment on above: Order Comment: Speci men Type: BLOOD SPECIMENOrdering Facility: [facility] Address: [address] [place] [address] Performed By: #### 2 4321-2 ####[facility]ATORYCLIA [id number] [place] [address] [place] CBC panel Auto (Bld)on 06-19 Erythrocyte distribution width (RBC) [Ratio] 15.7 % High 11.5-15.0 [facility] Comment on above: Order Comment: Speci men Type: BLOOD SPECIMENOrdering Facility: [facility] Address: [address] [place] [address] Performed By: #### 5 8410-2 ####[facility] LABORATORYCLIA [id number] [address] [place] Hematocrit (Bld) [Volume fraction] 30.9 % Low 39.0-51.0 [facility] Comment on above: Order Comment: Speci men Type: BLOOD SPECIMENOrdering Facility: [facility] [facility] Address: [address] [place] [address] Performed By: #### 5 8410-2 ####[facility] LAB[facility]ATORYCLIA [id number] [place] [address] [place] Hemoglobin (Bld) [Mass/Vol] 9.5 g/dL Low 13.0-17.0 [facility] Comment on above: Order Comment: Speci men Type: BLOOD SPECIMENOrdering Facility: [facility] Address: [address] [place] [address] Performed By: #### 5 8410-2 ####[facility] LABORATORYCLIA [id number] [address] MCH (RBC) [Entitic mass] 28.4 pg Normal 26.0-34.0 [facility] Comment on above: Order Comment: Speci men Type: BLOOD SPECIMENOrdering Facility: [facility] Address: [address] [place] [address] Performed By: #### 5 8410-2 ####[facility]ATORYCLIA [id number] [address] MCHC (RBC) [Mass/Vol] 30.7 g/dL Normal 30.5-36.0 [facility] Comment on above: Order Comment: Speci men Type: BLOOD SPECIMENOrdering Facility: [facility] Address: [address] [place] [address] Performed By: #### 5 8410-2 ####[facility]ITAL[facility] [id number] [address] MCV (RBC) [Entitic vol] 92.2 fL Normal 80.0-100.0 [facility] Comment on above: Order Comment: Speci men Type: BLOOD SPECIMENOrdering Facility: [facility] Address: [address] [place] [address] Performed By: #### 5 8410-2 ####[facility]ATORYCLIA [id number] [address] Nucleated RBC (Bld) [#/Vol] 10*3/uL Normal <0.01 [facility] Comment on above: Order Comment: Speci men Type: BLOOD SPECIMENOrdering Facility: [facility] Address: [address] [place] [address] Performed By: #### 5 8410-2 ####[facility]ATORYCLIA [id number] [address] Platelet mean volume (Bld) [Entitic vol] 11.7 fL Normal 9.0-12.7 [facility] Comment on above: Order Comment: Speci men Type: BLOOD SPECIMENOrdering Facility: [facility] Address: [address] [place] [address] Performed By: #### 5 8410-2 ####[facility]ORATORYCLIA [id number] [address] OF [facility] Platelets (Bld) [#/Vol] 323 10*3/uL Normal 150-400 [facility] Comment on above: Order Comment: Speci men Type: BLOOD SPECIMENOrdering Facility: [facility] Address: [address] [place] [address] Performed By: #### 5 8410-2 ####[facility]ATORYCLIA [id number] [address] [place] RBC (Bld) [#/Vol] 3.35 10*6/uL Low 4.20-6.00 [facility] Comment on above: Order Comment: Speci men Type: BLOOD SPECIMENOrdering Facility: [facility] Address: [address] [place] [address] Performed By: #### 5 8410-2 ####[facility]ATORYCLIA [id number] [address] OF [facility] WBC (Bld) [#/Vol] 9.53 10*3/uL Normal 3.70-11.00 [facility] Comment on above: Order Comment: Speci men Type: BLOOD SPECIMENOrdering Facility: [facility] Address: [address] [place] [address] Performed By: #### 5 8410-2 ####[facility]ORATORYCLIA [id number] [address] HEMOGLOBIN (HGB)on 2 Hemoglobin (Bld) [Mass/Vol] 9.7 g/dL Low 13.0-17.0 [facility] Comment on above: Order Comment: Speci men Type: BLOOD SPECIMENOrdering Facility: [facility] Address: [address] [place] [address] Performed By: #### H GB ####[facility]ORATORYCLIA [id number] [address] Magnesium SerPl-mCncon 06-19 Magnesium [Mass/Vol] 2.5 mg/dL High 1.7-2.3 [facility] Comment on above: Order Comment: Speci men Type: BLOOD SPECIMENOrdering Facility: [facility] Address: [address] [place] [address] Performed By: #### 1 9123-9, 2777-1 ####[facility]ATORYCLIA [id number] [address] OF [facility] NURSING PROGon 06-19-2021 NURSING PROG Normal [facility] Phosphate SerPl-mCncon 06-19 Phosphate [Mass/Vol] 2.6 mg/dL Low 2.7-4.8 [facility] Comment on above: Order Comment: Speci men Type: BLOOD SPECIMENOrdering Facility: [facility] Address: [address] [place] [address] Performed By: #### 1 9123-9, 2777-1 ####[facility]ORATORYCLIA [id number] [address] aPTT PPPon 06-19-2021 aPTT Coag (PPP) [Time] 61.9 s High 23.0-32.[address] [facility] Comment on above: Order Comment: Speci men Type: BLOOD SPECIMENOrdering Facility: [facility] Address: [address] [place] [address] Performed By: #### 1 4979-9 ####[facility]ATORYCLIA [id number] [address] aPTT Coag (PPP) [Time] 68.6 s High 23.0-32.[address] [facility] Comment on above: Order Comment: Speci men Type: BLOOD SPECIMENOrdering Facility: [facility] Address: [address] [place] [address] Performed By: #### 1 4979-9 ####[facility]ORATORYCLIA [id number] [place] [address] [place] aPTT Coag (PPP) [Time] 83.2 s High 23.0-32.[address] [facility] Comment on above: Order Comment: Speci men Type: BLOOD SPECIMENOrdering Facility: [facility] Address: [address] [place] [address] Performed By: #### 1 4979-9 ####[facility]ORATORYCLIA [id number] [place] [address] [place] Basic metabolic 2000 panelon 06-18-2021 Anion gap [Moles/Vol] 7 mmol/L Low 9-18 [facility] Comment on above: Order Comment: Speci men Type: BLOOD SPECIMENOrdering Facility: [facility] Address: [address] [place] [address] Performed By: #### 2 4321-2, , 2776-05 ####[facility]ORATORYCLIA [id number] [place] [address] [place] Calcium [Mass/Vol] 8.2 mg/dL Low 8.5-10.2 [facility] Comment on above: Order Comment: Speci men Type: BLOOD SPECIMENOrdering Facility: [facility] Address: [address] [place] [address] Performed By: #### 2 4321-2, , 2776-05 ####[facility]ORATORYCLIA [id number] [place] [address] [place] Chloride [Moles/Vol] 115 mmol/L High 97-105 [facility] Comment on above: Order Comment: Speci men Type: BLOOD SPECIMENOrdering Facility: [facility] Address: [address] [place] [address] Performed By: #### 2 4321-2, , 2776-05 ####[facility]ATORYCLIA [id number] [place] [address] [place] CO2 [Moles/Vol] 23 mmol/L Normal 22-30 [facility] Comment on above: Order Comment: Shira feldman Type: BLOOD SPECIMENOrdering Facility: [facility] Address: [address] [place] [address] Performed By: #### 2 4321-2, , 2776-05 ####[facility]ORATORYCLIA [id number] [place] [id number] [place] Creatinine [Mass/Vol] 0.70 mg/dL Low 0.73-1.22 [facility] Comment on above: Order Comment: Shira feldman Type: BLOOD SPECIMENOrdering Facility: [facility] Address: [address] [place] [address] Performed By: #### 2 4321-2, , 2776-05 ####[facility]ATORYCLIA [id number] [place] [address] [place] GFR/1.73 sq M.predicted MDRD (S/P/Bld) [Vol rate/Area] mL/min/{1.73_m2} Normal [facility] Comment on above: Order Comment: Shira feldman Type: BLOOD SPECIMENOrdering Facility: [facility] Address: [address] [place] [address] Result Comment: >60e GFR (Estimated GFR) Units [...] Performed By: #### 2 4321-2, , 2776-05 ####[facility]ORATORYCLIA [id number] [place] [address] [place] Glucose [Mass/Vol] 105 mg/dL High 74-99 [facility] Comment on above: Order Comment: Speci men Type: BLOOD SPECIMENOrdering Facility: [facility] Address: [address] [place], [place] [address] Result Comment: The [place] [employer] (ADA) provides guidance for cutoff [...] Standards of Medical Care in Diabetes 2016, [place] [employer]. Diabetes Care. 2016.39(Suppl 1). Performed By: #### 2 4321-2, , 2776-05 ####[facility]ORATORYCLIA [id number] [place] [address] [place] Potassium [Moles/Vol] 4.1 mmol/L Normal 3.7-5.1 [facility] Comment on above: Order Comment: Shira francia Type: BLOOD SPECIMENOrdering Facility: [facility] Address: [address] [place], [place] [address] Performed By: #### 2 4321-2, , 2776-05 ####[facility]ORATORYCLIA [id number] [place] [address] [place] Sodium [Moles/Vol] 145 mmol/L High 136-144 [facility] Comment on above: Order Comment: Johni men Type: BLOOD SPECIMENOrdering Facility: [facility] Address: [address] [place], [place] [address] Performed By: #### 2 4321-2, , 2776-05 ####[facility]ATORYCLIA [id number] [place] [address] [place] Urea nitrogen [Mass/Vol] 27 mg/dL High 9-24 [facility] Comment on above: Order Comment: Speci men Type: BLOOD SPECIMENOrdering Facility: [facility] Address: [address] [place] [address] Performed By: #### 2 4321-2, 08559-9, 2777-1 ####[facility]PITALCLIA [id number] [address] [place] CALCIUM IONIZED Bon 06-18-19 Calcium.ionized (BldV) [Mass/Vol] 1.22 mmol/L Normal 1.08-1.30 [facility] Comment on above: Order Comment: Speci men Type: BLOOD SPECIMENOrdering Facility: [facility] Address: [address] [place] [address] Performed By: #### I [place] ####[facility]PITALCLIA [id number] [address] STATES OF [facility] Calcium.ionized adjusted to pH 7.4 (Bld) [Moles/Vol] 1.23 mmol/L Normal 1.08-1.30 [facility] Comment on above: Order Comment: Speci men Type: BLOOD SPECIMENOrdering Facility: [facility] Address: [address] [place] [address] Performed By: #### I CA ####[facility]ORATORYCLIA [id number] [address] STATES OF [facility] CBC panel Auto (Bld)on 06-18 Erythrocyte distribution width (RBC) [Ratio] 15.8 % High 11.5-15.0 [facility] Comment on above: Order Comment: Speci men Type: BLOOD SPECIMENOrdering Facility: [facility] Address: [address] [place] [address] Performed By: #### 5 8410-2 ####[facility]ATORYCLIA [id number] [address] STATES [facility] Hematocrit (Bld) [Volume fraction] 29.5 % Low 39.0-51.0 [facility] Comment on above: Order Comment: Speci men Type: BLOOD SPECIMENOrdering Facility: [facility] Address: [address] [place] [address] Performed By: #### 5 8410-2 ####[facility]ATORYCLIA [id number] [address] Hemoglobin (Bld) [Mass/Vol] 8.8 g/dL Low 13.0-17.0 [facility] Comment on above: Order Comment: Speci men Type: BLOOD SPECIMENOrdering Facility: [facility] Address: [address] [place] [address] Performed By: #### 5 8410-2 ####[facility]ORATORYCLIA [id number] [address] MCH (RBC) [Entitic mass] 27.4 pg Normal 26.0-34.0 [facility] Comment on above: Order Comment: Speci men Type: BLOOD SPECIMENOrdering Facility: [facility] Address: [address] [place] [address] Performed By: #### 5 8410-2 ####[facility]ATORYCLIA [id number] [address] MCHC (RBC) [Mass/Vol] 29.8 g/dL Low 30.5-36.0 [facility] Comment on above: Order Comment: Speci men Type: BLOOD SPECIMENOrdering Facility: [facility] Address: [address] [place] [address] Performed By: #### 5 8410-2 ####[facility]ATORYCLIA [id number] [address] MCV (RBC) [Entitic vol] 91.9 fL Normal 80.0-100.0 [facility] Comment on above: Order Comment: Speci men Type: BLOOD SPECIMENOrdering Facility: [facility] Address: [address] [place] [address] Performed By: #### 5 8410-2 ####[facility]ATORYCLIA [id number] [address] Nucleated RBC (Bld) [#/Vol] 10*3/uL Normal <0.01 [facility] Comment on above: Order Comment: Speci men Type: BLOOD SPECIMENOrdering Facility: [facility] Address: [address] [place] [address] Performed By: #### 5 8410-2 ####[facility]ATORYCLIA [id number] [address] [place] Platelet mean volume (Bld) [Entitic vol] 11.9 fL Normal 9.0-12.7 [facility] Comment on above: Order Comment: Speci men Type: BLOOD SPECIMENOrdering Facility: [facility] Address: [address] [place] [address] Performed By: #### 5 8410-2 ####[facility]ATORYCLIA [id number] [address] Platelets (Bld) [#/Vol] 291 10*3/uL Normal 150-400 [facility] Comment on above: Order Comment: Speci men Type: BLOOD SPECIMENOrdering Facility: [facility] Address: [address] [place] [address] Performed By: #### 5 8410-2 ####[facility]ATORYCLIA [id number] [address] [place] RBC (Bld) [#/Vol] 3.21 10*6/uL Low 4.20-6.00 [facility] Comment on above: Order Comment: Speci men Type: BLOOD SPECIMENOrdering Facility: [facility] Address: [address] [place], [place] [address] Performed By: #### 5 8410-2 ####[facility]ORATORYCLIA [id number] [address] [place] WBC (Bld) [#/Vol] 10.19 10*3/uL Normal 3.70-11.00 [facility] Comment on above: Order Comment: Speci men Type: BLOOD SPECIMENOrdering Facility: [facility] Address: [address] [place] [address] Performed By: #### 5 8410-2 ####[facility]ORATORYCLIA [id number] [address] [place] FERRITIN BLDon 06-18-2021 Ferritin [Mass/Vol] 600.9 ng/mL High 30.3-565.7 [facility] Comment on above: Order Comment: Speci men Type: BLOOD SPECIMENOrdering Facility: [facility] Address: [address] [place] [address] Performed By: #### S ERFOL, IRON, FERR ####[facility] LABORATORYCLIA [id number] [address] OF [facility] FOLATE SERUMon 06-18-2021 Folate [Mass/Vol] 14.3 ng/mL Normal >4.7 [facility] Comment on above: Order Comment: Speci men Type: BLOOD SPECIMENOrdering Facility: [facility] Address: [address] [place] [address] Performed By: #### S ERFOL, IRON, FERR ####[facility]ATORYCLIA [id number] [address] Gas and Carbon monoxide pane l (BldV)on 06-18-2021 Base excess Calc (BldV) [Moles/Vol] 0.5 mmol/L Normal 0-2 [facility] Comment on above: Order Comment: Speci men Type: VENOUS BLOOD SPECIMENOrdering Facility: [facility] Address: [address] [place] [address] Performed By: #### 2 4344-4 ####[facility]ORATORYCLIA [id number] [address] Body temperature 97.34 [degF] Normal [facility] Comment on above: Order Comment: Speci men Type: VENOUS BLOOD SPECIMENOrdering Facility: [facility] Address: [address] [place] [address] Performed By: #### 2 4344-4 ####[facility]ATORYCLIA [id number] [address] CALCIUM IONIZED, PH CORRECTED 1.26 mmol/L Normal 1.08-1.30 [facility] Comment on above: Order Comment: Speci men Type: VENOUS BLOOD SPECIMENOrdering Facility: [facility] Address: [address] [place] [address] Performed By: #### 2 4344-4 ####[facility]ATORYCLIA [id number] [address] [place] Calcium.ionized (BldV) [Mass/Vol] 1.25 mmol/L Normal 1.08-1.30 [facility] Comment on above: Order Comment: Speci men Type: VENOUS BLOOD SPECIMENOrdering Facility: [facility] Address: [address] [place] [address] Performed By: #### 2 4344-4 ####[facility]ORATORYCLIA [id number] [address] OF [facility] Carboxyhemoglobin (BldV) [Mass fraction] 1.5 % Normal 0.0-2.0 [facility] Comment on above: Order Comment: Speci men Type: VENOUS BLOOD SPECIMENOrdering Facility: [facility] Address: [address] [place] [address] Result Comment: Carb oxyhemoglobin Reference Range for Smokers: 2.0-8.0% Performed By: #### 2 4344-4 ####[facility]ATORYCLIA [id number] [address] [place] CO2 (BldV) [Partial pressure] 38 mm[Hg] Low 42-55 [facility] Comment on above: Order Comment: Speci men Type: VENOUS BLOOD SPECIMENOrdering Facility: [facility] Address: [address] [place] [address] Performed By: #### 2 4344-4 ####[facility]ORATORYCLIA [id number] [address] [place] CO2 [Moles/Vol] 22.9 mmol/L Low 25-29 [facility] Comment on above: Order Comment: Speci men Type: VENOUS BLOOD SPECIMENOrdering Facility: [facility] Address: [address] [place] [address] Performed By: #### 2 4344-4 ####[facility]ATORYCLIA [id number] [address] CO2 adjusted to patient's actual temperature (BldV) [Partial pressure] 37 mmHg Low 42-55 [facility] Comment on above: Order Comment: Speci men Type: VENOUS BLOOD SPECIMENOrdering Facility: [facility] Address: [address] [place] [address] Performed By: #### 2 4344-4 ####[facility]ORATORYCLIA [id number] [address] OF [place] Glucose [Mass/Vol] 103 mg/dL Normal 60-105 [facility] Comment on above: Order Comment: Speci men Type: VENOUS BLOOD SPECIMENOrdering Facility: [facility] Address: [address] [place] [address] Performed By: #### 2 4344-4 ####[facility] LABORATORYCLIA [id number] [address] OF [place] HCO3 (Bld) [Moles/Vol] 24.4 mmol/L Normal 24-28 [facility] Comment on above: Order Comment: Speci men Type: VENOUS BLOOD SPECIMENOrdering Facility: [facility] Address: [address] [place] [address] Performed By: #### 2 4344-4 ####[facility] LABORATORYCLIA [id number] [address] OF [place] Hematocrit (Bld) [Volume fraction] 28.7 % Low 39.0-51.0 [facility] Comment on above: Order Comment: Speci men Type: VENOUS BLOOD SPECIMENOrdering Facility: [facility] Address: [address] [place] [address] Performed By: #### 2 4344-4 ####[facility] LABORATORYCLIA [id number] [place] [address] [place] Hemoglobin (Bld) [Mass/Vol] 9.3 g/dL Low 13.0-17.0 [facility] Comment on above: Order Comment: Speci men Type: VENOUS BLOOD SPECIMENOrdering Facility: [facility] Address: [address] [place] [address] Performed By: #### 2 4344-4 ####[facility] LABORATORYCLIA [id number] [address] OF [place] Methemoglobin (Bld) [Mass fraction] % Normal 0.0-1.5 [facility] Comment on above: Order Comment: Speci men Type: VENOUS BLOOD SPECIMENOrdering Facility: [facility] Address: [address] [place] [address] Performed By: #### 2 4344-4 ####[facility]ORATORYCLIA [id number] [address] O2 THERAPY Ventilator Normal [facility] Comment on above: Order Comment: Speci men Type: VENOUS BLOOD SPECIMENOrdering Facility: [facility] Address: [address] [place] [address] Performed By: #### 2 4344-4 ####[facility] LABORATORYCLIA [id number] [address] Oxygen (BldV) [Partial pressure] 37 mm[Hg] Normal 35-45 [facility] Comment on above: Order Comment: Speci men Type: VENOUS BLOOD SPECIMENOrdering Facility: [facility] Address: [address] [place] [address] Performed By: #### 2 4344-4 ####[facility]ORATORYCLIA [id number] [address] Oxygen adjusted to patient's actual temperature (BldV) [Partial pressure] 35.1 mmHg Normal 35-45 [facility] Comment on above: Order Comment: Speci men Type: VENOUS BLOOD SPECIMENOrdering Facility: [facility] Address: [address] [place] [address] Performed By: #### 2 4344-4 ####[facility] LABORATORYCLIA [id number] [address] OF [place] Oxygen saturation in Blood 67.1 % Normal 60-85 [facility] Comment on above: Order Comment: Speci men Type: VENOUS BLOOD SPECIMENOrdering Facility: [facility] Address: [address] [place] [address] Performed By: #### 2 4344-4 ####[facility]ATORYCLIA [id number] [address] [place] Oxyhemoglobin (BldV) [Mass fraction] 66 % Normal 60-85 [facility] Comment on above: Order Comment: Speci men Type: VENOUS BLOOD SPECIMENOrdering Facility: [facility] Address: [address] [place] [address] Performed By: #### 2 4344-4 ####[facility] LABORATORYCLIA [id number] [address] [place] pH (BldV) 7.42 [pH] Normal 7.32-7.42 [facility] Comment on above: Order Comment: Speci men Type: VENOUS BLOOD SPECIMENOrdering Facility: [facility] Address: [address] [place] [address] Performed By: #### 2 4344-4 ####[facility] LABORATORYCLIA [id number] [address] pH adjusted to patient's actual temperature (BldV) 7.43 High 7.32-7.42 [facility] Comment on above: Order Comment: Speci men Type: VENOUS BLOOD SPECIMENOrdering Facility: [facility] Address: [address] [place] [address] Performed By: #### 2 4344-4 ####[facility] LABORATORYCLIA [id number] [address] [place] Potassium [Moles/Vol] 4.0 mmol/L Normal 3.5-5.0 [facility] Comment on above: Order Comment: Speci men Type: VENOUS BLOOD SPECIMENOrdering Facility: [facility] Address: [address] [address] Performed By: #### 2 4344-4 ####[facility] LABORATORYCLIA [id number] [address] Sodium [Moles/Vol] 146 mmol/L High 136-144 [facility] Comment on above: Order Comment: Speci men Type: VENOUS BLOOD SPECIMENOrdering Facility: [facility] Address: [address] [place] [address] Performed By: #### 2 4344-4 ####[facility] LABORATORYCLIA [id number] [address] OF [facility] HEMOGLOBIN (HGB)on 2 Hemoglobin (Bld) [Mass/Vol] 9.2 g/dL Low 13.0-17.0 [facility] Comment on above: Order Comment: Speci men Type: BLOOD SPECIMENOrdering Facility: [facility] Address: [address] [place] [address] Performed By: #### H GB ####[facility]ATORYCLIA [id number] [address] IRON + TIBCon 06-18-2021 Iron [Mass/Vol] 27 ug/dL Low 41-186 [facility] Comment on above: Order Comment: Speci men Type: BLOOD SPECIMENOrdering Facility: [facility] Address: [address] [place] [address] Performed By: #### S ERFOL, IRON, FERR ####[facility]ORATORYCLIA [id number] [address] [place] Iron binding capacity [Mass/Vol] 141 ug/dL Low 232-386 [facility] Comment on above: Order Comment: Speci men Type: BLOOD SPECIMENOrdering Facility: [facility] Address: [address] [place] [address] Performed By: #### S ERFOL, IRON, FERR ####[facility] LABORATORYCLIA [id number] [address] Iron saturation [Mass fraction] 19 % Normal 15-57 [facility] Comment on above: Order Comment: Speci men Type: BLOOD SPECIMENOrdering Facility: [facility] Address: [address] [place] [address] Performed By: #### S ERFOL, IRON, FERR ####[facility]ORATORYCLIA [id number] [address] Magnesium SerPl-mCncon 06-18 Magnesium [Mass/Vol] 2.5 mg/dL High 1.7-2.3 [facility] Comment on above: Order Comment: Speci men Type: BLOOD SPECIMENOrdering Facility: [facility] Address: [address] [place] [address] Performed By: #### 2 4321-2, 39357-5, 2777-1 ####[facility]ATORYCLIA [id number] [address] OF [facility] NURSING PROGon 06-18-2021 NURSING PROG Normal [facility] Phosphate SerPl-mCncon 06-18 Phosphate [Mass/Vol] 3.0 mg/dL Normal 2.7-4.8 [facility] Comment on above: Order Comment: Speci men Type: BLOOD SPECIMENOrdering Facility: [facility] Address: [address] [place] [address] Performed By: #### 2 4321-2, , 2777-1 ####[facility]ATORYCLIA [id number] [address] [place] THERAPY NTon 06-18-2021 THERAPY NT Normal [facility] aPTT PPPon 06-18-2021 aPTT Coag (PPP) [Time] 43.0 s High 23.0-32.[address] [facility] Comment on above: Order Comment: Speci men Type: BLOOD SPECIMENOrdering Facility: [facility] Address: [address] [place] [address] Performed By: #### 1 4979-9 ####[facility]ATORYCLIA [id number] [address] aPTT Coag (PPP) [Time] 60.6 s High 23.0-32.[address] [facility] Comment on above: Order Comment: Speci men Type: BLOOD SPECIMENOrdering Facility: [facility] Address: [address] [place] [address] Performed By: #### 1 4979-9 ####[facility]ATORYCLIA [id number] [address] aPTT Coag (PPP) [Time] 46.4 s High 23.0-32.[address] [facility] Comment on above: Order Comment: Speci men Type: BLOOD SPECIMENOrdering Facility: [facility] Address: [address] [place] [address] Performed By: #### 1 4979-9 ####[facility]ATORYCLIA [id number] [place] [address] [place] Basic metabolic 2000 panelon 06-17-2021 Anion gap [Moles/Vol] 7 mmol/L Low 9-18 [facility] Comment on above: Order Comment: Speci men Type: BLOOD SPECIMENOrdering Facility: [facility] Address: [address] [place] [address] Performed By: #### 2 951-2, 94610-8, 2777-1, 19716-1 ####[facility]ITALCLIA [id number] [place] [address] [place] Calcium [Mass/Vol] 8.1 mg/dL Low 8.5-10.2 [facility] Comment on above: Order Comment: Speci men Type: BLOOD SPECIMENOrdering Facility: [facility] Address: [address] [place] [address] Performed By: #### 2 951-2, 62400-0, 2777-1, 79792-8 ####[facility]ATORYCLIA [id number] [address] [place] [facility] Chloride [Moles/Vol] 113 mmol/L High 97-105 [facility] Comment on above: Order Comment: Speci men Type: BLOOD SPECIMENOrdering Facility: [facility] Address: [address] [place] [address] Performed By: #### 2 951-2, 79476-7, 2777-1, 76722-9 ####[facility]ATORYCLIA [id number] [place] [address] [place] CO2 [Moles/Vol] 25 mmol/L Normal 22-30 [facility] Comment on above: Order Comment: Speci men Type: BLOOD SPECIMENOrdering Facility: [facility] Address: [address] [place] [address] Performed By: #### 2 951-2, 62511-4, 1, 09013-5 ####[facility]ATORYCLIA [id number] [address] [place] Creatinine [Mass/Vol] 0.70 mg/dL Low 0.73-1.22 [facility] Comment on above: Order Comment: Speci men Type: BLOOD SPECIMENOrdering Facility: [facility] Address: [address] [place] [address] Performed By: #### 2 951-2, 64223-9, 2771, 10269-1 ####[facility]ATORYCLIA [id number] [address] [place] GFR/1.73 sq M.predicted MDRD (S/P/Bld) [Vol rate/Area] mL/min/{1.73_m2} Normal [facility] Comment on above: Order Comment: Speci men Type: BLOOD SPECIMENOrdering Facility: [facility] Address: [address] [place] [address] Result Comment: >60e GFR (Estimated GFR) Units [...] actual GFR. Performed By: #### 2 951-2, 89466-9, 2776-, 08337-2 ####[facility]ORATORYCLIA [id number] [place] [address] [place] Glucose [Mass/Vol] 122 mg/dL High 74-99 [facility] Comment on above: Order Comment: Shira feldman Type: BLOOD SPECIMENOrdering Facility: [facility] Address: [address] [place], [place] [address] Result Comment: The [place] [employer] (ADA) provides guidance for cutoff [...] Standards of Medical Care in Diabetes 2016, [place] [employer]. Diabetes Care. 2016.39(Suppl 1). Performed By: #### 2 951-2, , 2776-05, 75978-7 ####[facility]ORATORYCLIA [id number] [place] [id number] [place] Potassium [Moles/Vol] 3.5 mmol/L Low 3.7-5.1 [facility] Comment on above: Order Comment: Shira feldman Type: BLOOD SPECIMENOrdering Facility: [facility] Address: [address] [place] [address] Performed By: #### 2 951-2, 82365-2, 2776-, 23350-8 ####[facility] LABORATORYCLIA [id number] [place] [address] [place] Urea nitrogen [Mass/Vol] 27 mg/dL High 9-24 [facility] Comment on above: Order Comment: Speci men Type: BLOOD SPECIMENOrdering Facility: [facility] Address: [address] [place] [address] Performed By: #### 2 951-2, 93106-2, 2777-1, 87929-1 ####[facility]ORATORYCLIA [id number] [address] OF [facility] CASE MANAGEMon 06-17-2021 CASE MANAGEM Normal [facility] CBC panel Auto (Bld)on 06-17 Erythrocyte distribution width (RBC) [Ratio] 15.9 % High 11.5-15.0 [facility] Comment on above: Order Comment: Speci men Type: BLOOD SPECIMENOrdering Facility: [facility] Address: [address] [place] [address] Performed By: #### 5 8410-2 ####[facility]ORATORYCLIA [id number] [address] STATES OF [facility] Hematocrit (Bld) [Volume fraction] 28.9 % Low 39.0-51.0 [facility] Comment on above: Order Comment: Speci men Type: BLOOD SPECIMENOrdering Facility: [facility] Address: [address] [place] [address] Performed By: #### 5 8410-2 ####[facility]ORATORYCLIA [id number] [address] [place] Hemoglobin (Bld) [Mass/Vol] 8.8 g/dL Low 13.0-17.0 [facility] Comment on above: Order Comment: Speci men Type: BLOOD SPECIMENOrdering Facility: [facility] Address: [address] [place] [address] Performed By: #### 5 8410-2 ####[facility]ORATORYCLIA [id number] [address] [place] MCH (RBC) [Entitic mass] 28.4 pg Normal 26.0-34.0 [facility] Comment on above: Order Comment: Speci men Type: BLOOD SPECIMENOrdering Facility: [facility] Address: [address] [place] [address] Performed By: #### 5 8410-2 ####[facility]ORATORYCLIA [id number] [address] MCHC (RBC) [Mass/Vol] 30.4 g/dL Low 30.5-36.0 [facility] Comment on above: Order Comment: Speci men Type: BLOOD SPECIMENOrdering Facility: [facility] Address: [address] [place] [address] Performed By: #### 5 8410-2 ####[facility]ORATORYCLIA [id number] [address] MCV (RBC) [Entitic vol] 93.2 fL Normal 80.0-100.0 [facility] Comment on above: Order Comment: Speci men Type: BLOOD SPECIMENOrdering Facility: [facility] Address: [address] [place] [address] Performed By: #### 5 8410-2 ####[facility]ATORYCLIA [id number] [address] Nucleated RBC (Bld) [#/Vol] 10*3/uL Normal <0.01 [facility] Comment on above: Order Comment: Speci men Type: BLOOD SPECIMENOrdering Facility: [facility] Address: [address] [place] [address] Performed By: #### 5 8410-2 ####[facility]ORATORYCLIA [id number] [address] Platelet mean volume (Bld) [Entitic vol] 11.9 fL Normal 9.0-12.7 [facility] Comment on above: Order Comment: Speci men Type: BLOOD SPECIMENOrdering Facility: [facility] Address: [address] [place] [address] Performed By: #### 5 8410-2 ####[facility]ATORYCLIA [id number] [address] [place] Platelets (Bld) [#/Vol] 257 10*3/uL Normal 150-400 [facility] Comment on above: Order Comment: Speci men Type: BLOOD SPECIMENOrdering Facility: [facility] Address: [address] [place] [address] Performed By: #### 5 8410-2 ####[facility]ORATORYCLIA [id number] [address] OF [facility] RBC (Bld) [#/Vol] 3.10 10*6/uL Low 4.20-6.00 [facility] Comment on above: Order Comment: Speci men Type: BLOOD SPECIMENOrdering Facility: [facility] Address: [address] [place] [address] Performed By: #### 5 8410-2 ####[facility]ITALCLIA [id number] [address] WBC (Bld) [#/Vol] 10.54 10*3/uL Normal 3.70-11.00 [facility] Comment on above: Order Comment: Speci men Type: BLOOD SPECIMENOrdering Facility: [facility] Address: [address] [place] [address] Performed By: #### 5 8410-2 ####[facility]ATORYCLIA [id number] [address] [place] HEMOGLOBIN (HGB)on 2 Hemoglobin (Bld) [Mass/Vol] 8.8 g/dL Low 13.0-17.0 [facility] Comment on above: Order Comment: Speci men Type: BLOOD SPECIMENOrdering Facility: [facility] Address: [address] [place] [address] Performed By: #### H GB ####[facility]ATORYCLIA [id number] [address] OF [facility] Magnesium SerPl-mCncon 06-17 Magnesium [Mass/Vol] 2.5 mg/dL High 1.7-2.3 [facility] Comment on above: Order Comment: Speci men Type: BLOOD SPECIMENOrdering Facility: [facility] Address: [address] [place] [address] Performed By: #### 2 951-2, , 2776-05, ####[facility]ORATORYCLIA [id number] [address] [place] NURSING PROGon 06-17-2021 NURSING PROG Normal [facility] NURSING PROG Normal [facility] NURSING PROG Normal [facility] Phosphate SerPl-mCncon 06-17 Phosphate [Mass/Vol] 1.9 mg/dL Low 2.7-4.8 [facility] Comment on above: Order Comment: Speci men Type: BLOOD SPECIMENOrdering Facility: [facility] Address: [address] [place] [address] Performed By: #### 2 951-2, , 2776-05, ####[facility]ORATORYCLIA [id number] [place] [address] [place] Sodium SerPl-sCncon 06-17-19 Sodium [Moles/Vol] 144 mmol/L Normal 136-144 [facility] Comment on above: Order Comment: Speci men Type: BLOOD SPECIMENOrdering Facility: [facility] Address: [address] [place] [address] Performed By: #### 2 95-2 ####[facility]ORATORYCLIA [id number] [place] [address] [place] Sodium [Moles/Vol] 145 mmol/L High 136-144 [facility] Comment on above: Order Comment: Speci men Type: BLOOD SPECIMENOrdering Facility: [facility] Address: [address] [place] [address] Performed By: #### 2 951-2, , 2776-05, 45285-6 ####[facility]ORATORYCLIA [id number] [address] [place] aPTT PPPon 06-17-2021 aPTT Coag (PPP) [Time] 55.8 s High 23.0-32.[address] [facility] Comment on above: Order Comment: Speci men Type: BLOOD SPECIMENOrdering Facility: [facility] Address: [address] [place] [address] Performed By: #### 1 4979-9 ####[facility]ORATORYCLIA [id number] [address] [place] ARTERIAL BLOOD GASESon 06-16 Base excess Calc (Bld) [Moles/Vol] 3 mmol/L High 0-2 [facility] Comment on above: Order Comment: Speci men Type: ARTERIAL BLOOD SPECIMENOrdering Facility: [facility] Address: [address] [place] [address] Performed By: #### A LLBG ####[facility]ITALCLIA [id number] [address] STATES OF [facility] Body temperature 99.14 [degF] Normal [facility] Comment on above: Order Comment: Speci men Type: ARTERIAL BLOOD SPECIMENOrdering Facility: [facility] Address: [address] [place] [address] Performed By: #### A LLBG ####[facility]OSPITALIA [id number] [address] [place] CALCIUM IONIZED, PH CORRECTED 1.21 mmol/L Normal 1.08-1.30 [facility] Comment on above: Order Comment: Speci men Type: ARTERIAL BLOOD SPECIMENOrdering Facility: [facility] Address: [address] [place] [address] Performed By: #### A LLBG ####[facility]ORATORYCLIA [id number] [address] [place] Calcium.ionized (BldV) [Mass/Vol] 1.17 mmol/L Normal 1.08-1.30 [facility] Comment on above: Order Comment: Speci men Type: ARTERIAL BLOOD SPECIMENOrdering Facility: [facility] Address: [address] [place] [address] Performed By: #### A LLBG ####[facility]ORATORYCLIA [id number] [address] [place] Carboxyhemoglobin (BldA) [Mass fraction] 1.4 % Normal 0.0-2.0 [facility] Comment on above: Order Comment: Speci men Type: ARTERIAL BLOOD SPECIMENOrdering Facility: [facility] Address: [address] [place] [address] Result Comment: Carb oxyhemoglobin Reference Range for Smokers: 2.0-8.0% Performed By: #### A LLBG ####[facility]ORATORYCLIA [id number] [address] [place] [facility] CO2 (Bld) [Partial pressure] 38 mm Hg Normal 36-46 [facility] Comment on above: Order Comment: Speci men Type: ARTERIAL BLOOD SPECIMENOrdering Facility: [facility] Address: [address] [place] [address] Performed By: #### A LLBG ####[facility]ATORYCLIA [id number] [address] [place] CO2 [Moles/Vol] 24.5 mmol/L Normal 22-28 [facility] Comment on above: Order Comment: Speci men Type: ARTERIAL BLOOD SPECIMENOrdering Facility: [facility] Address: [address] [place] [address] Performed By: #### A LLBG ####[facility]ATORYCLIA [id number] [address] [place] CO2 adjusted to patient's actual temperature (Bld) [Partial pressure] 38 mmHg Normal 36-46 [facility] Comment on above: Order Comment: Speci men Type: ARTERIAL BLOOD SPECIMENOrdering Facility: [facility] Address: [address] [place] [address] Performed By: #### A LLBG ####[facility]ATORYCLIA [id number] [address] [place] Glucose [Mass/Vol] 147 mg/dL High 60-105 [facility] Comment on above: Order Comment: Speci men Type: ARTERIAL BLOOD SPECIMENOrdering Facility: [facility] Address: [address] [place] [address] Performed By: #### A LLBG ####[facility]ATORYCLIA [id number] [place] [address] [place] HCO3 (Bld) [Moles/Vol] 27 mmol/L High 22-[address] [facility] Comment on above: Order Comment: Speci men Type: ARTERIAL BLOOD SPECIMENOrdering Facility: [facility] Address: [address] [place] [address] Performed By: #### A LLBG ####[facility]ATORYCLIA [id number] [address] [place] Hematocrit (Bld) [Volume fraction] 31.8 % Low 39.0-51.0 [facility] Comment on above: Order Comment: Speci men Type: ARTERIAL BLOOD SPECIMENOrdering Facility: [facility] Address: [address] [place] [address] Performed By: #### A LLBG ####[facility]ATORYCLIA [id number] [address] [place] Hemoglobin (Bld) [Mass/Vol] 10.3 g/dL Low 13.0-17.0 [facility] Comment on above: Order Comment: Speci men Type: ARTERIAL BLOOD SPECIMENOrdering Facility: [facility] Address: [address] [place] [address] Performed By: #### A LLBG ####[facility]ATORYCLIA [id number] [address] [place] Methemoglobin (Bld) [Mass fraction] 1.0 % Normal 0.0-1.5 [facility] Comment on above: Order Comment: Speci men Type: ARTERIAL BLOOD SPECIMENOrdering Facility: [facility] Address: [address] [place], [place] [address] Performed By: #### A LLBG ####[facility]ATORYCLIA [id number] [address] O2 THERAPY Ventilator Normal [facility] Comment on above: Order Comment: Speci men Type: ARTERIAL BLOOD SPECIMENOrdering Facility: [facility] Address: [address] [place] [address] Performed By: #### A LLBG ####[facility]ATORYCLIA [id number] [address] OF [facility] Oxygen (Bld) [Partial pressure] 78 mm Hg Low 85-95 [facility] Comment on above: Order Comment: Speci men Type: ARTERIAL BLOOD SPECIMENOrdering Facility: [facility] Address: [address] [place] [address] Performed By: #### A LLBG ####[facility]ORATORYCLIA [id number] [address] Oxygen adjusted to patient's actual temperature (Bld) [Partial pressure] 79.7 mmHg Low 85-95 [facility] Comment on above: Order Comment: Speci men Type: ARTERIAL BLOOD SPECIMENOrdering Facility: [facility] Address: [address] [place] [address] Performed By: #### A LLBG ####[facility]ORATORYCLIA [id number] [address] [place] OXYGEN SATURATION, ARTERIAL 96 % Normal 95-98 [facility] Comment on above: Order Comment: Speci men Type: ARTERIAL BLOOD SPECIMENOrdering Facility: [facility] Address: [address] [place] [address] Performed By: #### A LLBG ####[facility]ATORYCLIA [id number] [address] Oxyhemoglobin (BldA) [Mass fraction] 94 % Low 95-98 [facility] Comment on above: Order Comment: Speci men Type: ARTERIAL BLOOD SPECIMENOrdering Facility: [facility] Address: [address] [place] [address] Performed By: #### A LLBG ####[facility]ORATORYCLIA [id number] [address] STATES OF [facility] pH (Bld) 7.47 [pH] High 7.35-7.45 [facility] Comment on above: Order Comment: Speci men Type: ARTERIAL BLOOD SPECIMENOrdering Facility: [facility] Address: [address] [place] [address] Performed By: #### A LLBG ####[facility]ATORYCLIA [id number] [address] pH adjusted to patient's actual temperature (Bld) 7.46 High 7.35-7.45 [facility] Comment on above: Order Comment: Speci men Type: ARTERIAL BLOOD SPECIMENOrdering Facility: [facility] Address: [address] [place] [address] Performed By: #### A LLBG ####[facility]ORATORYCLIA [id number] [address] STATES OF [facility] Potassium [Moles/Vol] 3.7 mmol/L Normal 3.5-5.0 [facility] Comment on above: Order Comment: Speci men Type: ARTERIAL BLOOD SPECIMENOrdering Facility: [facility] Address: [address] [place] [address] Performed By: #### A LLBG ####[facility]ATORYCLIA [id number] [address] [place] Sodium [Moles/Vol] 155 mmol/L High 136-144 [facility] Comment on above: Order Comment: Speci men Type: ARTERIAL BLOOD SPECIMENOrdering Facility: [facility] Address: [address] [place] [address] Performed By: #### A LLBG ####[facility]ATORYCLIA [id number] [address] [place] Bacteria Spec Resp Culton Bacteria identified Respiratory culture Nom (Unsp spec) CULTURE, RESPIRATORY: Rare Normal respiratory chris present ORGANISM ID: 1 Few Yeast, not cryptococcus neoformans GRAM STAIN: No organisms seen Few Polymorphonuclear leukocytes Few Epithelial cells Abnormal [facility] Comment on above: Performed By: #### 3 2355-0 ####[facility]ORATORYCLIA [id number] [place] [address] [place] Basic metabolic 2000 panelon 06-16-2021 Anion gap [Moles/Vol] 9 mmol/L Normal 9-18 [facility] Comment on above: Order Comment: Speci men Type: BLOOD SPECIMENOrdering Facility: [facility] Address: [address] [place] [address] Performed By: #### 2 4321-2 ####[facility] LAB[facility]ATORYCLIA [id number] [place] [address] [place] Calcium [Mass/Vol] 8.4 mg/dL Low 8.5-10.2 [facility] Comment on above: Order Comment: Speci men Type: BLOOD SPECIMENOrdering Facility: [facility] Address: [address] [place] [address] Performed By: #### 2 4321-2 ####[facility] LABORATORYCLIA [id number] [place], [place] [id number] [place] Chloride [Moles/Vol] 120 mmol/L High 97-105 [facility] Comment on above: Order Comment: Speci men Type: BLOOD SPECIMENOrdering Facility: [facility] Address: [address] [place] [address] Performed By: #### 2 4321-2 ####[facility]ATORYCLIA [id number] [place] [address] [place] CO2 [Moles/Vol] 27 mmol/L Normal 22-30 [facility] Comment on above: Order Comment: Speci men Type: BLOOD SPECIMENOrdering Facility: [facility] Address: [address] [place] [address] Performed By: #### 2 4321-2 ####[facility]ORATORYCLIA [id number] [place] [address] [place] Creatinine [Mass/Vol] 0.75 mg/dL Normal 0.73-1.22 [facility] Comment on above: Order Comment: Johncara feldman Type: BLOOD SPECIMENOrdering Facility: [facility] Address: [address] [phone] Performed By: #### 2 4321-2 ####[facility]ORATORYCLIA [id number] [place] [id number] [place] GFR/1.73 sq M.predicted MDRD (S/P/Bld) [Vol rate/Area] mL/min/{1.73_m2} Normal [facility] Comment on above: Order Comment: Johncara feldman Type: BLOOD SPECIMENOrdering Facility: [facility] Address: [address] [place], [place] [phone] Result Comment: >60e GFR (Estimated GFR) Units [...] actual GFR. Performed By: #### 2 4321-2 ####[facility]ATORYCLIA [id number] [address] [place] Glucose [Mass/Vol] 160 mg/dL High 74-99 [facility] Comment on above: Order Comment: Shira feldman Type: BLOOD SPECIMENOrdering Facility: [facility] Address: [address] [phone] Result Comment: The [place] [employer] (ADA) provides guidance for cutoff [...] Standards of Medical Care in Diabetes 2016, [place] [employer]. Diabetes Care. 2016.39(Suppl 1). Performed By: #### 2 4321-2 ####[facility]ORATORYCLIA [id number] [address] STATES OF [facility] Potassium [Moles/Vol] 3.1 mmol/L Low 3.7-5.1 [facility] Comment on above: Order Comment: Speci men Type: BLOOD SPECIMENOrdering Facility: [facility] Address: [address] [place] [address] Performed By: #### 2 4321-2 ####[facility]ATORYCLIA [id number] [address] STATES [facility] Sodium [Moles/Vol] 156 mmol/L High 136-144 [facility] Comment on above: Order Comment: Speci men Type: BLOOD SPECIMENOrdering Facility: [facility] Address: [address] [place] [address] Performed By: #### 2 4321-2 ####[facility]ORATORYCLIA [id number] [address] [place] [facility] Urea nitrogen [Mass/Vol] 33 mg/dL High 9-24 [facility] Comment on above: Order Comment: Speci men Type: BLOOD SPECIMENOrdering Facility: [facility] Address: [address] [place] [address] Performed By: #### 2 4321-2 ####[facility]ORATORYCLIA [id number] [place] [id number] [place] CASE MANAGEMon 06-16-2021 CASE MANAGEM Normal [facility] CBC panel Auto (Bld)on 06-16 Erythrocyte distribution width (RBC) [Ratio] 15.9 % High 11.5-15.0 [facility] Comment on above: Order Comment: Speci men Type: BLOOD SPECIMENOrdering Facility: [facility] Address: [address] [place] [address] Performed By: #### 5 8410-2 ####[facility]ORATORYCLIA [id number] [address] Hematocrit (Bld) [Volume fraction] 34.6 % Low 39.0-51.0 [facility] Comment on above: Order Comment: Speci men Type: BLOOD SPECIMENOrdering Facility: [facility] Address: [address] [place] [address] Performed By: #### 5 8410-2 ####[facility]ATORYCLIA [id number] [address] Hemoglobin (Bld) [Mass/Vol] 10.2 g/dL Low 13.0-17.0 [facility] Comment on above: Order Comment: Speci men Type: BLOOD SPECIMENOrdering Facility: [facility] Address: [address] [place] [address] Performed By: #### 5 8410-2 ####[facility]ORATORYCLIA [id number] [address] MCH (RBC) [Entitic mass] 28.5 pg Normal 26.0-34.0 [facility] Comment on above: Order Comment: Speci men Type: BLOOD SPECIMENOrdering Facility: [facility] Address: [address] [place] [address] Performed By: #### 5 8410-2 ####[facility]ORATORYCLIA [id number] [address] [place] MCHC (RBC) [Mass/Vol] 29.5 g/dL Low 30.5-36.0 [facility] Comment on above: Order Comment: Speci men Type: BLOOD SPECIMENOrdering Facility: [facility] Address: [address] [place] [address] Performed By: #### 5 8410-2 ####[facility]ATORYCLIA [id number] [address] MCV (RBC) [Entitic vol] 96.6 fL Normal 80.0-100.0 [facility] Comment on above: Order Comment: Speci men Type: BLOOD SPECIMENOrdering Facility: [facility] Address: [address] [place] [address] Performed By: #### 5 8410-2 ####[facility]ORATORYCLIA [id number] [address] Nucleated RBC (Bld) [#/Vol] 10*3/uL Normal <0.01 [facility] Comment on above: Order Comment: Speci men Type: BLOOD SPECIMENOrdering Facility: [facility] Address: [address] [place] [address] Performed By: #### 5 8410-2 ####[facility]ORATORYCLIA [id number] [address] OF [facility] Platelet mean volume (Bld) [Entitic vol] 11.9 fL Normal 9.0-12.7 [facility] Comment on above: Order Comment: Speci men Type: BLOOD SPECIMENOrdering Facility: [facility] Address: [address] [place] [address] Performed By: #### 5 8410-2 ####[facility]ORATORYCLIA [id number] [address] Platelets (Bld) [#/Vol] 269 10*3/uL Normal 150-400 [facility] Comment on above: Order Comment: Speci men Type: BLOOD SPECIMENOrdering Facility: [facility] Address: [address] [address] Performed By: #### 5 8410-2 ####[facility]ORATORYCLIA [id number] [address] [place] RBC (Bld) [#/Vol] 3.58 10*6/uL Low 4.20-6.00 [facility] Comment on above: Order Comment: Speci men Type: BLOOD SPECIMENOrdering Facility: [facility] Address: [address] [place], [place] [phone] Performed By: #### 5 8410-2 ####[facility]ORATORYCLIA [id number] [place] [address] [place] WBC (Bld) [#/Vol] 13.11 10*3/uL High 3.70-11.00 [facility] Comment on above: Order Comment: Speci men Type: BLOOD SPECIMENOrdering Facility: [facility] Address: [address] [place] [address] Performed By: #### 5 8410-2 ####[facility]ORATORYCLIA [id number] [address] [place] CONSULTon 06-16-2021 CONSULT Normal [facility] CONSULT PROGon 06-16-2021 CONSULT PROG Normal [facility] CT BRAIN WO IVCONon 06-16-[address] BRAIN WO IVCON Normal [facility] HEMOGLOBIN (HGB)on 2 Hemoglobin (Bld) [Mass/Vol] 8.9 g/dL Low 13.0-17.0 [facility] Comment on above: Order Comment: Speci men Type: BLOOD SPECIMENOrdering Facility: [facility] Address: [address] [place] [address] Performed By: #### H GB ####[facility]ORATORYCLIA [id number] [address] [place] Hemoglobin (Bld) [Mass/Vol] 9.6 g/dL Low 13.0-17.0 [facility] Comment on above: Order Comment: Speci men Type: BLOOD SPECIMENOrdering Facility: [facility] Address: [address] [place] [address] Performed By: #### H GB ####[facility]ORATORYCLIA [id number] [address] [place] Magnesium SerPl-mCncon 06-16 Magnesium [Mass/Vol] 2.7 mg/dL High 1.7-2.3 [facility] Comment on above: Order Comment: Speci men Type: BLOOD SPECIMENOrdering Facility: [facility] Address: [address] [place] [address] Performed By: #### 1 9123-9 ####[facility]ORATORYCLIA [id number] [place] [address] [place] NURSING PROGon 06-16-2021 NURSING PROG Normal [facility] NUTRITIONon 06-16-2021 NUTRITION Normal [facility] Phosphate SerPl-mCncon 06-16 Phosphate [Mass/Vol] 1.4 mg/dL Low 2.7-4.8 [facility] Comment on above: Order Comment: Speci men Type: BLOOD SPECIMENOrdering Facility: [facility] Address: [address] [place] [address] Performed By: #### 2 777-1 ####[facility]ORATORYCLIA [id number] [address] [place] STAPH AUREUS PCRon S. aureus and MRSA panel MEGAN+probe (Nose) Normal Negative [facility] Comment on above: Order Comment: Speci men Type: SWAB OF INTERNAL NOSEOrdering Facility: [facility] Address: [address] [place] [address] Result Comment: Nega tive for Staphylococcus aureus by PCR.Negative for MRSA by PCR Performed By: #### S APCR ####[facility]ORATORYCLIA [id number] [place] [address] [place] Sodium SerPl-sCncon 06-16-19 22 Sodium [Moles/Vol] 150 mmol/L High 136-144 [facility] Comment on above: Order Comment: Speci men Type: BLOOD SPECIMENOrdering Facility: [facility] Address: [address] [place] [address] Performed By: #### 2 951-2 ####[facility]ORATORYCLIA [id number] [place] [address] [place] Sodium [Moles/Vol] 153 mmol/L High 136-144 [facility] Comment on above: Order Comment: Speci men Type: BLOOD SPECIMENOrdering Facility: [facility] Address: [address] [place] [address] Performed By: #### 2 951-2 ####[facility]ORATORYCLIA [id number] [address] OF [facility] Sodium [Moles/Vol] 158 mmol/L High 136-144 [facility] Comment on above: Order Comment: Speci men Type: BLOOD SPECIMENOrdering Facility: [facility] Address: [address] [place] [address] Performed By: #### 2 951-2 ####[facility]ORATORYCLIA [id number] [address] [place] aPTT PPPon 06-16-2021 aPTT Coag (PPP) [Time] 61.8 s High 23.0-32.[address] [facility] Comment on above: Order Comment: Speci men Type: BLOOD SPECIMENOrdering Facility: [facility] Address: [address] [place] [address] Performed By: #### 1 4979-9 ####[facility]ORATORYCLIA [id number] [address] OF [facility] aPTT Coag (PPP) [Time] 57.6 s High 23.0-32.[address] [facility] Comment on above: Order Comment: Speci men Type: BLOOD SPECIMENOrdering Facility: [facility] Address: [address] [place] [address] Performed By: #### 1 4979-9 ####[facility]ATORYCLIA [id number] [place] [address] [place] ALLIED HEALTHon 06-15-2021 ALLIED HEALTH Normal [facility] ALLIED HEALTH Normal [facility] ALLIED HEALTH Normal [facility] ALLIED HEALTH Normal [facility] ARTERIAL BLOOD GASESon 06-15 Base excess Calc (Bld) [Moles/Vol] 3 mmol/L High 0-2 [facility] Comment on above: Order Comment: Speci men Type: ARTERIAL BLOOD SPECIMENOrdering Facility: [facility] Address: [address] [place] [address] Performed By: #### A LLBG ####[facility]ORATORYCLIA [id number] [address] Body temperature 99.5 [degF] Normal [facility] Comment on above: Order Comment: Speci men Type: ARTERIAL BLOOD SPECIMENOrdering Facility: [facility] Address: [address] [place] [address] Performed By: #### A LLBG ####[facility]ORATORYCLIA [id number] [address] OF [facility] CALCIUM IONIZED, PH CORRECTED 1.34 mmol/L High 1.08-1.30 [facility] Comment on above: Order Comment: Speci men Type: ARTERIAL BLOOD SPECIMENOrdering Facility: [facility] Address: [address] [place] [address] Performed By: #### A LLBG ####[facility]ORATORYCLIA [id number] [address] Calcium.ionized (BldV) [Mass/Vol] 1.29 mmol/L Normal 1.08-1.30 [facility] Comment on above: Order Comment: Speci men Type: ARTERIAL BLOOD SPECIMENOrdering Facility: [facility] Address: [address] [place] [address] Performed By: #### A LLBG ####[facility]ORATORYCLIA [id number] [address] [place] Carboxyhemoglobin (BldA) [Mass fraction] 1.3 % Normal 0.0-2.0 [facility] Comment on above: Order Comment: Speci men Type: ARTERIAL BLOOD SPECIMENOrdering Facility: [facility] Address: [address] [place] [address] Result Comment: Carb oxyhemoglobin Reference Range for Smokers: 2.0-8.0% Performed By: #### A LLBG ####[facility]ATORYCLIA [id number] [address] CO2 (Bld) [Partial pressure] 37 mm Hg Normal 36-46 [facility] Comment on above: Order Comment: Speci men Type: ARTERIAL BLOOD SPECIMENOrdering Facility: [facility] Address: [address] [place] [address] Performed By: #### A LLBG ####[facility]ORATORYCLIA [id number] [address] [place] [facility] CO2 [Moles/Vol] 24.6 mmol/L Normal 22-28 [facility] Comment on above: Order Comment: Speci men Type: ARTERIAL BLOOD SPECIMENOrdering Facility: [facility] Address: [address] [place] [address] Performed By: #### A LLBG ####[facility] LABORATORYCLIA [id number] [address] CO2 adjusted to patient's actual temperature (Bld) [Partial pressure] 38 mmHg Normal 36-46 [facility] Comment on above: Order Comment: Speci men Type: ARTERIAL BLOOD SPECIMENOrdering Facility: [facility] Address: [address] [place] [address] Performed By: #### A LLBG ####[facility]ATORYCLIA [id number] [address] FIO2 100 % Normal [facility] Comment on above: Order Comment: Speci men Type: ARTERIAL BLOOD SPECIMENOrdering Facility: [facility] Address: [address] [place] [address] Performed By: #### A LLBG ####[facility]ORATORYCLIA [id number] [address] [place] Glucose [Mass/Vol] 159 mg/dL High 60-105 [facility] Comment on above: Order Comment: Speci men Type: ARTERIAL BLOOD SPECIMENOrdering Facility: [facility] Address: [address] [place] [address] Performed By: #### A LLBG ####[facility]ORATORYCLIA [id number] [address] [place] HCO3 (Bld) [Moles/Vol] 27 mmol/L High 22-[address] [facility] Comment on above: Order Comment: Speci men Type: ARTERIAL BLOOD SPECIMENOrdering Facility: [facility] Address: [address] [place] [address] Performed By: #### A LLBG ####[facility]ORATORYCLIA [id number] [address] OF [facility] Hematocrit (Bld) [Volume fraction] 31.0 % Low 39.0-51.0 [facility] Comment on above: Order Comment: Speci men Type: ARTERIAL BLOOD SPECIMENOrdering Facility: [facility] Address: [address] [place] [address] Performed By: #### A LLBG ####[facility]ORATORYCLIA [id number] [address] [place] Hemoglobin (Bld) [Mass/Vol] 10.0 g/dL Low 13.0-17.0 [facility] Comment on above: Order Comment: Speci men Type: ARTERIAL BLOOD SPECIMENOrdering Facility: [facility] Address: [address] [place] [address] Performed By: #### A LLBG ####[facility]ORATORYCLIA [id number] [address] Methemoglobin (Bld) [Mass fraction] % Normal 0.0-1.5 [facility] Comment on above: Order Comment: Speci men Type: ARTERIAL BLOOD SPECIMENOrdering Facility: [facility] Address: [address] [place] [address] Performed By: #### A LLBG ####[facility]ORATORYCLIA [id number] [address] O2 THERAPY Ventilator Normal [facility] Comment on above: Order Comment: Speci men Type: ARTERIAL BLOOD SPECIMENOrdering Facility: [facility] Address: [address] [place] [address] Performed By: #### A LLBG ####[facility]ATORYCLIA [id number] [address] [place] Oxygen (Bld) [Partial pressure] 279 mm Hg High 85-95 [facility] Comment on above: Order Comment: Speci men Type: ARTERIAL BLOOD SPECIMENOrdering Facility: [facility] Address: [address] [address] Performed By: #### A LLBG ####[facility]ATORYCLIA [id number] [address] [place] Oxygen adjusted to patient's actual temperature (Bld) [Partial pressure] 281 mmHg High 85-95 [facility] Comment on above: Order Comment: Speci men Type: ARTERIAL BLOOD SPECIMENOrdering Facility: [facility] Address: [address] [place] [address] Performed By: #### A LLBG ####[facility]ORATORYCLIA [id number] [address] [place] OXYGEN SATURATION, ARTERIAL 100 % High 95-98 [facility] Comment on above: Order Comment: Speci men Type: ARTERIAL BLOOD SPECIMENOrdering Facility: [facility] Address: [address] [place] [address] Performed By: #### A LLBG ####[facility]ATORYCLIA [id number] [address] [place] Oxyhemoglobin (BldA) [Mass fraction] 98 % Normal 95-98 [facility] Comment on above: Order Comment: Speci men Type: ARTERIAL BLOOD SPECIMENOrdering Facility: [facility] Address: [address] [place] [address] Performed By: #### A LLBG ####[facility]ORATORYCLIA [id number] [address] [place] pH (Bld) 7.47 [pH] High 7.35-7.45 [facility] Comment on above: Order Comment: Speci men Type: ARTERIAL BLOOD SPECIMENOrdering Facility: [facility] Address: [address] [address] Performed By: #### A LLBG ####[facility]ORATORYCLIA [id number] [address] [place] [facility] pH adjusted to patient's actual temperature (Bld) 7.46 High 7.35-7.45 [facility] Comment on above: Order Comment: Speci men Type: ARTERIAL BLOOD SPECIMENOrdering Facility: [facility] Address: [address] [place] [address] Performed By: #### A LLBG ####[facility]ORATORYCLIA [id number] [address] [place] Potassium [Moles/Vol] 3.6 mmol/L Normal 3.5-5.0 [facility] Comment on above: Order Comment: Speci men Type: ARTERIAL BLOOD SPECIMENOrdering Facility: [facility] Address: [address] [place] [address] Performed By: #### A LLBG ####[facility]ORATORYCLIA [id number] [address] [place] Sodium [Moles/Vol] 162 mmol/L High 136-144 [facility] Comment on above: Order Comment: Speci men Type: ARTERIAL BLOOD SPECIMENOrdering Facility: [facility] Address: [address] [place] [address] Performed By: #### A LLBG ####[facility]ATORYCLIA [id number] [address] [place] Base excess Calc (Bld) [Moles/Vol] 4 mmol/L High 0-2 [facility] Comment on above: Order Comment: Speci men Type: ARTERIAL BLOOD SPECIMENOrdering Facility: [facility] Address: [address] [place] [address] Performed By: #### A LLBG ####[facility]ORATORYCLIA [id number] [address] Body temperature 100.58 [degF] Normal [facility] Comment on above: Order Comment: Speci men Type: ARTERIAL BLOOD SPECIMENOrdering Facility: [facility] Address: [address] [place] [address] Performed By: #### A LLBG ####[facility]ORATORYCLIA [id number] [address] CALCIUM IONIZED, PH CORRECTED 1.34 mmol/L High 1.08-1.30 [facility] Comment on above: Order Comment: Speci men Type: ARTERIAL BLOOD SPECIMENOrdering Facility: [facility] Address: [address] [place] [address] Performed By: #### A LLBG ####[facility]ORATORYCLIA [id number] [address] Calcium.ionized (BldV) [Mass/Vol] 1.33 mmol/L High 1.08-1.30 [facility] Comment on above: Order Comment: Speci men Type: ARTERIAL BLOOD SPECIMENOrdering Facility: [facility] Address: [address] [place] [address] Performed By: #### A LLBG ####[facility]ATORYCLIA [id number] [address] Carboxyhemoglobin (BldA) [Mass fraction] 1.5 % Normal 0.0-2.0 [facility] Comment on above: Order Comment: Speci men Type: ARTERIAL BLOOD SPECIMENOrdering Facility: [facility] Address: [address] [place] [address] Result Comment: Carb oxyhemoglobin Reference Range for Smokers: 2.0-8.0% Performed By: #### A LLBG ####[facility]ATORYCLIA [id number] [address] [place] CO2 (Bld) [Partial pressure] 46 mm Hg Normal 36-46 [facility] Comment on above: Order Comment: Speci men Type: ARTERIAL BLOOD SPECIMENOrdering Facility: [facility] Address: [address] [place] [address] Performed By: #### A LLBG ####[facility]ATORYCLIA [id number] [address] CO2 [Moles/Vol] 26.4 mmol/L Normal 22-28 [facility] Comment on above: Order Comment: Speci men Type: ARTERIAL BLOOD SPECIMENOrdering Facility: [facility] Address: [address] [place] [address] Performed By: #### A LLBG ####[facility]ORATORYCLIA [id number] [address] CO2 adjusted to patient's actual temperature (Bld) [Partial pressure] 48 mmHg High 36-46 [facility] Comment on above: Order Comment: Speci men Type: ARTERIAL BLOOD SPECIMENOrdering Facility: [facility] Address: [address] [place] [address] Performed By: #### A LLBG ####[facility]ATORYCLIA [id number] [address] [place] FIO2 100 % Normal [facility] Comment on above: Order Comment: Speci men Type: ARTERIAL BLOOD SPECIMENOrdering Facility: [facility] Address: [address] [place] [address] Performed By: #### A LLBG ####[facility] LABORATORYCLIA [id number] [address] [place] Glucose [Mass/Vol] 132 mg/dL High 60-105 [facility] Comment on above: Order Comment: Speci men Type: ARTERIAL BLOOD SPECIMENOrdering Facility: [facility] Address: [address] [place] [address] Performed By: #### A LLBG ####[facility]ORATORYCLIA [id number] [place] [address] [place] HCO3 (Bld) [Moles/Vol] 29 mmol/L High 22-[address] [facility] Comment on above: Order Comment: Speci men Type: ARTERIAL BLOOD SPECIMENOrdering Facility: [facility] Address: [address] [place] [address] Performed By: #### A LLBG ####[facility]ORATORYCLIA [id number] [address] [place] Hematocrit (Bld) [Volume fraction] 32.3 % Low 39.0-51.0 [facility] Comment on above: Order Comment: Speci men Type: ARTERIAL BLOOD SPECIMENOrdering Facility: [facility] Address: [address] [address] Performed By: #### A LLBG ####[facility]ATORYCLIA [id number] [address] [place] Hemoglobin (Bld) [Mass/Vol] 10.4 g/dL Low 13.0-17.0 [facility] Comment on above: Order Comment: Speci men Type: ARTERIAL BLOOD SPECIMENOrdering Facility: [facility] Address: [address] [place] [address] Performed By: #### A LLBG ####[facility]ORATORYCLIA [id number] [address] [place] Methemoglobin (Bld) [Mass fraction] % Normal 0.0-1.5 [facility] Comment on above: Order Comment: Speci men Type: ARTERIAL BLOOD SPECIMENOrdering Facility: [facility] Address: [address] [place] [address] Performed By: #### A LLBG ####[facility]ATORYCLIA [id number] [address] [place] O2 THERAPY NR=Non-Rebreather Mask Normal [facility] Comment on above: Order Comment: Speci men Type: ARTERIAL BLOOD SPECIMENOrdering Facility: [facility] Address: [address] [place] [address] Performed By: #### A LLBG ####[facility]ATORYCLIA [id number] [address] Oxygen (Bld) [Partial pressure] 130 mm Hg High 85-95 [facility] Comment on above: Order Comment: Speci men Type: ARTERIAL BLOOD SPECIMENOrdering Facility: [facility] Address: [address] [place] [address] Performed By: #### A LLBG ####[facility]ATORYCLIA [id number] [address] [place] Oxygen adjusted to patient's actual temperature (Bld) [Partial pressure] 136 mmHg High 85-95 [facility] Comment on above: Order Comment: Speci men Type: ARTERIAL BLOOD SPECIMENOrdering Facility: [facility] Address: [address] [place] [address] Performed By: #### A LLBG ####[facility]ATORYCLIA [id number] [address] [place] OXYGEN SATURATION, ARTERIAL 99 % High 95-98 [facility] Comment on above: Order Comment: Speci men Type: ARTERIAL BLOOD SPECIMENOrdering Facility: [facility] Address: [address] [place] [address] Performed By: #### A LLBG ####[facility]ATORYCLIA [id number] [address] Oxyhemoglobin (BldA) [Mass fraction] 97 % Normal 95-98 [facility] Comment on above: Order Comment: Speci men Type: ARTERIAL BLOOD SPECIMENOrdering Facility: [facility] Address: [address] [place] [address] Performed By: #### A LLBG ####[facility]ATORYCLIA [id number] [address] [place] pH (Bld) 7.41 [pH] Normal 7.35-7.45 [facility] Comment on above: Order Comment: Speci men Type: ARTERIAL BLOOD SPECIMENOrdering Facility: [facility] Address: [address] [address] Performed By: #### A LLBG ####[facility]ORATORYCLIA [id number] [address] pH adjusted to patient's actual temperature (Bld) 7.40 Normal 7.35-7.45 [facility] Comment on above: Order Comment: Speci men Type: ARTERIAL BLOOD SPECIMENOrdering Facility: [facility] Address: [address] [place] [address] Performed By: #### A LLBG ####[facility]ATORYCLIA [id number] [address] [place] Potassium [Moles/Vol] 3.8 mmol/L Normal 3.5-5.0 [facility] Comment on above: Order Comment: Speci men Type: ARTERIAL BLOOD SPECIMENOrdering Facility: [facility] Address: [address] [place] [address] Performed By: #### A LLBG ####[facility]ATORYCLIA [id number] [address] [place] Sodium [Moles/Vol] 166 mmol/L High 136-144 [facility] Comment on above: Order Comment: Speci men Type: ARTERIAL BLOOD SPECIMENOrdering Facility: [facility] Address: [address] [place] [address] Performed By: #### A LLBG ####[facility]ATORYCLIA [id number] [address] [place] Bacteria Bld Culton 06-15-19 22 Bacteria identified Cx Nom (Bld) CULTURE, BLOOD: No growth 5 days Normal [facility] Comment on above: Performed By: #### 6 00-7 ####[facility]ATORYCLIA [id number] [address] [place] Basic metabolic 2000 panelon 06-15-2021 Anion gap [Moles/Vol] 9 mmol/L Normal 9-18 [facility] Comment on above: Order Comment: Speci men Type: BLOOD SPECIMEN Performed By: #### 2 4321-2, 2776-05, ####[facility]ATORYCLIA [id number] [address] [place] Calcium [Mass/Vol] 9.0 mg/dL Normal 8.5-10.2 [facility] Comment on above: Order Comment: Speci men Type: BLOOD SPECIMEN Performed By: #### 2 4321-2, 2776-, ####[facility]ORATORYCLIA [id number] [place] [address] [place] Chloride [Moles/Vol] 125 mmol/L High 97-105 [facility] Comment on above: Order Comment: Speci men Type: BLOOD SPECIMEN Performed By: #### 2 4321-2, 2776-05, ####[facility]ORATORYCLIA [id number] [place] [address] [place] CO2 [Moles/Vol] 29 mmol/L Normal 22-30 [facility] Comment on above: Order Comment: Speci men Type: BLOOD SPECIMEN Performed By: #### 2 4321-2, 2776-05, ####[facility]ATORYCLIA [id number] [address] [place] Creatinine [Mass/Vol] 0.81 mg/dL Normal 0.73-1.22 [facility] Comment on above: Order Comment: Speci men Type: BLOOD SPECIMEN Performed By: #### 2 4321-2, 2776-05, ####[facility]ORATORYCLIA [id number] [place] [address] [place] GFR/1.73 sq M.predicted MDRD (S/P/Bld) [Vol rate/Area] mL/min/{1.73_m2} Normal [facility] Comment on above: [...] GFR. Performed By: #### 2 4321-2, 2776-05, ####[facility]CL[facility] [id number] [place] [address] [place] Glucose [Mass/Vol] 124 mg/dL High 74-99 [facility] Comment on above: Order Comment: Speci men Type: BLOOD SPECIMEN Result Comment: The [place] [employer] (ADA) provides guidance for cutoff [...] Standards of Medical Care in Diabetes 2016, [place] [employer]. Diabetes Care. 2016.39(Suppl 1). Performed By: #### 2 4321-2, 2776-05, ####[facility]ATORYCLIA [id number] [address] [place] Potassium [Moles/Vol] 3.8 mmol/L Normal 3.7-5.1 [facility] Comment on above: Order Comment: Speci men Type: BLOOD SPECIMEN Performed By: #### 2 1-2, 2776-05, ####[facility]ATORYCLIA [id number] [place] [address] [place] Sodium [Moles/Vol] 163 mmol/L High 136-144 [facility] Comment on above: Order Comment: Speci men Type: BLOOD SPECIMEN Performed By: #### 2 4321-2, 2776-05, ####[facility]ATORYCLIA [id number] [place] [address] [place] Urea nitrogen [Mass/Vol] 35 mg/dL High 9-24 [facility] Comment on above: Order Comment: Speci men Type: BLOOD SPECIMEN Performed By: #### 2 4321-2, 2776-05, ####[facility]ATORYCLIA [id number] [address] [place] [facility] CBC panel Auto (Bld)on 06-15 Erythrocyte distribution width (RBC) [Ratio] 16.3 % High 11.5-15.0 [facility] Comment on above: Order Comment: Speci men Type: BLOOD SPECIMENOrdering Facility: [facility] Address: [address] [place] [address] Performed By: #### 5 8410-2 ####[facility]ORATORYCLIA [id number] [address] Hematocrit (Bld) [Volume fraction] 30.0 % Low 39.0-51.0 [facility] Comment on above: Order Comment: Speci men Type: BLOOD SPECIMENOrdering Facility: [facility] Address: [address] [place] [address] Performed By: #### 5 8410-2 ####[facility]ATORYCLIA [id number] [address] Hemoglobin (Bld) [Mass/Vol] 8.9 g/dL Low 13.0-17.0 [facility] Comment on above: Order Comment: Speci men Type: BLOOD SPECIMENOrdering Facility: [facility] Address: [address] [place] [address] Performed By: #### 5 8410-2 ####[facility]ORATORYCLIA [id number] [address] [place] [facility] MCH (RBC) [Entitic mass] 28.7 pg Normal 26.0-34.0 [facility] Comment on above: Order Comment: Speci men Type: BLOOD SPECIMENOrdering Facility: [facility] Address: [address] [place] [address] Performed By: #### 5 8410-2 ####[facility]ATORYCLIA [id number] [address] [place] MCHC (RBC) [Mass/Vol] 29.7 g/dL Low 30.5-36.0 [facility] Comment on above: Order Comment: Speci men Type: BLOOD SPECIMENOrdering Facility: [facility] Address: [address] Performed By: #### 5 8410-2 ####[facility]ATORYCLIA [id number] [address] [place] MCV (RBC) [Entitic vol] 96.8 fL Normal 80.0-100.0 [facility] Comment on above: Order Comment: Speci men Type: BLOOD SPECIMENOrdering Facility: [facility] Address: [address] [place], [place] [address] Performed By: #### 5 8410-2 ####[facility]ATORYCLIA [id number] [address] [place] Nucleated RBC (Bld) [#/Vol] 10*3/uL Normal <0.01 [facility] Comment on above: Order Comment: Speci men Type: BLOOD SPECIMENOrdering Facility: [facility] Address: [address] [address] Performed By: #### 5 8410-2 ####[facility]ATORYCLIA [id number] [address] [place] Platelet mean volume (Bld) [Entitic vol] 12.3 fL Normal 9.0-12.7 [facility] Comment on above: Order Comment: Speci men Type: BLOOD SPECIMENOrdering Facility: [facility] Address: [address] Performed By: #### 5 8410-2 ####[facility]ATORYCLIA [id number] [address] [place] Platelets (Bld) [#/Vol] 226 10*3/uL Normal 150-400 [facility] Comment on above: Order Comment: Speci men Type: BLOOD SPECIMENOrdering Facility: [facility] Address: [address] [address] Performed By: #### 5 8410-2 ####[facility]ATORYCLIA [id number] [place] [address] [place] RBC (Bld) [#/Vol] 3.10 10*6/uL Low 4.20-6.00 [facility] Comment on above: Order Comment: Speci men Type: BLOOD SPECIMENOrdering Facility: [facility] Address: [address] [place] [address] Performed By: #### 5 8410-2 ####[facility]ATORYCLIA [id number] [address] [place] WBC (Bld) [#/Vol] 10.77 10*3/uL Normal 3.70-11.00 [facility] Comment on above: Order Comment: Speci men Type: BLOOD SPECIMENOrdering Facility: [facility] Address: [address] [place] [address] Performed By: #### 5 8410-2 ####[facility]ATORYCLIA [id number] [address] Erythrocyte distribution width (RBC) [Ratio] 16.2 % High 11.5-15.0 [facility] Comment on above: Order Comment: Speci men Type: BLOOD SPECIMENOrdering Facility: [facility] Address: [address] [place] [address] Performed By: #### 5 8410-2 ####[facility]ATORYCLIA [id number] [address] Hematocrit (Bld) [Volume fraction] 34.8 % Low 39.0-51.0 [facility] Comment on above: Order Comment: Speci men Type: BLOOD SPECIMENOrdering Facility: [facility] Address: [address] [place] [address] Performed By: #### 5 8410-2 ####[facility]ATORYCLIA [id number] [address] [place] Hemoglobin (Bld) [Mass/Vol] 10.0 g/dL Low 13.0-17.0 [facility] Comment on above: Order Comment: Speci men Type: BLOOD SPECIMENOrdering Facility: [facility] Address: [address] [place] [address] Performed By: #### 5 8410-2 ####[facility]ORATORYCLIA [id number] [address] MCH (RBC) [Entitic mass] 27.5 pg Normal 26.0-34.0 [facility] Comment on above: Order Comment: Speci men Type: BLOOD SPECIMENOrdering Facility: [facility] Address: [address] [place] [address] Performed By: #### 5 8410-2 ####[facility]ATORYCLIA [id number] [address] MCHC (RBC) [Mass/Vol] 28.7 g/dL Low 30.5-36.0 [facility] Comment on above: Order Comment: Speci men Type: BLOOD SPECIMENOrdering Facility: [facility] Address: [address] [place] [address] Performed By: #### 5 8410-2 ####[facility]ATORYCLIA [id number] [address] MCV (RBC) [Entitic vol] 95.6 fL Normal 80.0-100.0 [facility] Comment on above: Order Comment: Speci men Type: BLOOD SPECIMENOrdering Facility: [facility] Address: [address] [place] [address] Performed By: #### 5 8410-2 ####[facility]ATORYCLIA [id number] [address] Nucleated RBC (Bld) [#/Vol] 10*3/uL Normal <0.01 [facility] Comment on above: Order Comment: Speci men Type: BLOOD SPECIMENOrdering Facility: [facility] Address: [address] [place] [address] Performed By: #### 5 8410-2 ####[facility]ATORYCLIA [id number] [address] [place] Platelet mean volume (Bld) [Entitic vol] 11.9 fL Normal 9.0-12.7 [facility] Comment on above: Order Comment: Speci men Type: BLOOD SPECIMENOrdering Facility: [facility] Address: [address] [place] [address] Performed By: #### 5 8410-2 ####[facility]ATORYCLIA [id number] [address] [place] Platelets (Bld) [#/Vol] 246 10*3/uL Normal 150-400 [facility] Comment on above: Order Comment: Speci men Type: BLOOD SPECIMENOrdering Facility: [facility] Address: [address] [place] [address] Performed By: #### 5 8410-2 ####[facility]ATORYCLIA [id number] [address] [place] RBC (Bld) [#/Vol] 3.64 10*6/uL Low 4.20-6.00 [facility] Comment on above: Order Comment: Speci men Type: BLOOD SPECIMENOrdering Facility: [facility] Address: [address] [place] [address] Performed By: #### 5 8410-2 ####[facility]ATORYCLIA [id number] [address] [place] WBC (Bld) [#/Vol] 11.45 10*3/uL High 3.70-11.00 [facility] Comment on above: Order Comment: Speci men Type: BLOOD SPECIMENOrdering Facility: [facility] Address: [address] [place] [address] Performed By: #### 5 8410-2 ####[facility]ATORYCLIA [id number] [address] [place] Erythrocyte distribution width (RBC) [Ratio] 15.9 % High 11.5-15.0 [facility] Comment on above: Order Comment: Speci men Type: BLOOD SPECIMEN Performed By: #### 5 8410-2 ####[facility]ATORYCLIA [id number] [address] Hematocrit (Bld) [Volume fraction] 35.8 % Low 39.0-51.0 [facility] Comment on above: Order Comment: Speci men Type: BLOOD SPECIMEN Performed By: #### 5 8410-2 ####[facility]ORYCLIA [id number] [address] Hemoglobin (Bld) [Mass/Vol] 10.4 g/dL Low 13.0-17.0 [facility] Comment on above: Order Comment: Speci men Type: BLOOD SPECIMEN Performed By: #### 5 8410-2 ####[facility]ATORYCLIA [id number] [address] MCH (RBC) [Entitic mass] 28.0 pg Normal 26.0-34.0 [facility] Comment on above: Order Comment: Speci men Type: BLOOD SPECIMEN Performed By: #### 5 8410-2 ####[facility]ORYCLIA [id number] [address] MCHC (RBC) [Mass/Vol] 29.1 g/dL Low 30.5-36.0 [facility] Comment on above: Order Comment: Speci men Type: BLOOD SPECIMEN Performed By: #### 5 8410-2 ####[facility]ATORYCLIA [id number] [address] MCV (RBC) [Entitic vol] 96.2 fL Normal 80.0-100.0 [facility] Comment on above: Order Comment: Speci men Type: BLOOD SPECIMEN Performed By: #### 5 8410-2 ####[facility]ORYCLIA [id number] [address] Nucleated RBC (Bld) [#/Vol] 10*3/uL Normal <0.01 [facility] Comment on above: Order Comment: Speci men Type: BLOOD SPECIMEN Performed By: #### 5 8410-2 ####[facility]ORYCLIA [id number] [address] Platelet mean volume (Bld) [Entitic vol] 11.6 fL Normal 9.0-12.7 [facility] Comment on above: Order Comment: Speci men Type: BLOOD SPECIMEN Performed By: #### 5 8410-2 ####[facility]ORYCLIA [id number] [address] Platelets (Bld) [#/Vol] 265 10*3/uL Normal 150-400 [facility] Comment on above: Order Comment: Speci men Type: BLOOD SPECIMEN Performed By: #### 5 8410-2 ####[facility]ORYCLIA [id number] [address] RBC (Bld) [#/Vol] 3.72 10*6/uL Low 4.20-6.00 [facility] Comment on above: Order Comment: Speci men Type: BLOOD SPECIMEN Performed By: #### 5 8410-2 ####[facility]ORYCLIA [id number] [address] WBC (Bld) [#/Vol] 12.24 10*3/uL High 3.70-11.00 [facility] Comment on above: Order Comment: Speci men Type: BLOOD SPECIMEN Performed By: #### 5 8410-2 ####[facility]ATORYCLIA [id number] [address] CONSULTon 06-15-2021 CONSULT Normal [facility] CONSULT Normal [facility] CONSULT Normal [facility] CT BRAIN WO IVCONon 06-15-19 CT BRAIN WO IVCON Normal [facility] CT CHEST W IVCON PEon 2021 CT CHEST W IVCON PE Invalid Interpretation Code [facility] Chloride Unsp time (U) [Mole s/Vol]on 06-15-2021 Chloride (U) [Moles/Vol] 28 mmol/L Normal 16-250 [facility] Comment on above: Order Comment: Speci men Type: URINE SPECIMENOrdering Facility: [facility] Address: [address] [place] [address] Performed By: #### U TPR, 48434-2, 87666-0, 72666-3 ####[facility]ORATORYCLIA [id number] [address] OF [facility] Comprehensive metabolic 2000 panelon 06-15-2021 Albumin [Mass/Vol] 2.8 g/dL Low 3.9-4.9 [facility] Comment on above: Order Comment: Speci men Type: BLOOD SPECIMENOrdering Facility: [facility] Address: [address] [place] [address] Performed By: #### 2 4323-8 ####[facility]ATORYCLIA [id number] [address] [place] ALP [Catalytic activity/Vol] 74 U/L Normal 38-113 [facility] Comment on above: Order Comment: Speci men Type: BLOOD SPECIMENOrdering Facility: [facility] Address: [address] [place] [address] Performed By: #### 2 4323-8 ####[facility]ATORYCLIA [id number] [address] ALT With P-5'-P [Catalytic activity/Vol] 50 U/L Normal 10-54 [facility] Comment on above: Order Comment: Speci men Type: BLOOD SPECIMENOrdering Facility: [facility] Address: [address] [place] [address] Performed By: #### 2 4323-8 ####[facility]ATORYCLIA [id number] [address] Anion gap [Moles/Vol] 12 mmol/L Normal 9-18 [facility] Comment on above: Order Comment: Speci men Type: BLOOD SPECIMENOrdering Facility: [facility] Address: [address] [place] [address] Performed By: #### 2 4323-8 ####[facility]ATORYCLIA [id number] [place] [address] [place] AST With P-5'-P [Catalytic activity/Vol] 36 U/L Normal 14-40 [facility] Comment on above: Order Comment: Speci men Type: BLOOD SPECIMENOrdering Facility: [facility] Address: [address] [place] [address] Performed By: #### 2 4323-8 ####[facility]ATORYCLIA [id number] [place] [address] [place] Bilirubin [Mass/Vol] 0.5 mg/dL Normal 0.2-1.3 [facility] Comment on above: Order Comment: Speci men Type: BLOOD SPECIMENOrdering Facility: [facility] Address: [address] [place] [address] Performed By: #### 2 4323-8 ####[facility]ATORYCLIA [id number] [place] [address] [place] Calcium [Mass/Vol] 8.8 mg/dL Normal 8.5-10.2 [facility] Comment on above: Order Comment: Speci men Type: BLOOD SPECIMENOrdering Facility: [facility] Address: [address] [place] [address] Performed By: #### 2 4323-8 ####[facility]ATORYCLIA [id number] [place] [address] [place] Chloride [Moles/Vol] 126 mmol/L High 97-105 [facility] Comment on above: Order Comment: Speci men Type: BLOOD SPECIMENOrdering Facility: [facility] Address: [address] [place] [address] Performed By: #### 2 4323-8 ####[facility]ORYCLIA [id number] [place] [address] [place] CO2 [Moles/Vol] 24 mmol/L Normal 22-30 [facility] Comment on above: Order Comment: Speci men Type: BLOOD SPECIMENOrdering Facility: [facility] Address: [address] [address] Performed By: #### 2 4323-8 ####[facility]ATORYCLIA [id number] [address] [place] Creatinine [Mass/Vol] 0.84 mg/dL Normal 0.73-1.22 [facility] Comment on above: Order Comment: Shira feldman Type: BLOOD SPECIMENOrdering Facility: [facility] Address: [address] [address] Performed By: #### 2 4323-8 ####[facility] LABORATORYCLIA [id number] [address] [place] GFR/1.73 sq M.predicted MDRD (S/P/Bld) [Vol rate/Area] mL/min/{1.73_m2} Normal [facility] [facility] Comment on above: Order Comment: Shira feldman Type: BLOOD SPECIMENOrdering Facility: [facility] Address: [address] [place] [address] Result Comment: >60e GFR (Estimated GFR) Units [...] actual GFR. Performed By: #### 2 4323-8 ####[facility]ATORYCLIA [id number] [place] [address] [place] Glucose [Mass/Vol] 142 mg/dL High 74-99 [facility] Comment on above: Order Comment: Shira feldman Type: BLOOD SPECIMENOrdering Facility: [facility] Address: [address] [address] Result Comment: The [place] [employer] (ADA) provides guidance for cutoff [...] Standards of Medical Care in Diabetes 2016, [place] [employer]. Diabetes Care. 2016.39(Suppl 1). Performed By: #### 2 4323-8 ####[facility]ATORYCLIA [id number] [place] [address] [place] Potassium [Moles/Vol] 3.8 mmol/L Normal 3.7-5.1 [facility] Comment on above: Order Comment: Speci men Type: BLOOD SPECIMENOrdering Facility: [facility] Address: [address] [place] [address] Performed By: #### 2 4323-8 ####[facility] LABORATORYCLIA [id number] [place] [address] [place] Protein [Mass/Vol] 6.1 g/dL Low 6.3-8.0 [facility] Comment on above: Order Comment: Johni men Type: BLOOD SPECIMENOrdering Facility: [facility] Address: [address] [place] [address] Performed By: #### 2 4323-8 ####[facility]ATORYCLIA [id number] [place] [address] [place] Sodium [Moles/Vol] 162 mmol/L High 136-144 [facility] Comment on above: Order Comment: Johni men Type: BLOOD SPECIMENOrdering Facility: [facility] Address: [address] [address] Performed By: #### 2 4323-8 ####[facility]ORATORYCLIA [id number] [place] [address] [place] Urea nitrogen [Mass/Vol] 33 mg/dL High 9-24 [facility] Comment on above: Order Comment: Speci men Type: BLOOD SPECIMENOrdering Facility: [facility] Address: [address] [place] [address] Performed By: #### 2 4323-8 ####[facility]ATORYCLIA [id number] [place] [address] [place] Creatinine Unsp time (U) [Ma ss/Vol]on 06-15-2021 Creatinine (U) [Mass/Vol] 87.0 mg/dL Normal 46.8-314.5 [facility] Comment on above: Order Comment: Speci men Type: URINE SPECIMENOrdering Facility: [facility] Address: [address] [place] [address] Performed By: #### U TPR, 69495-2, 10258-3, 02749-7 ####[facility] LABORATORYCLIA [id number] [address] [place] HIGH SENSITIVITY TROPONIN To n 06-15-2021 HIGH SENSITIVITY TAMIKO 23 ng/L High <12 [facility] Comment on above: Order Comment: Speci men Type: BLOOD SPECIMENOrdering Facility: [facility] Address: [address] [place] [address] Result Comment: When assessing risk for acute [...] day MACE. Performed By: #### P ROCAL, 64857-1, HSTNT ####[facility]ATORYCLIA [id number] [place] [address] [place] Lactate (Bld) [Moles/Vol]on 06-15-2021 Lactate [Moles/Vol] 0.8 mmol/L Normal 0.5-2.2 [facility] Comment on above: Order Comment: Speci men Type: BLOOD SPECIMENOrdering Facility: [facility] Address: [address] [address] Performed By: #### 3 2693-4 ####[facility]ATORYCLIA [id number] [address] [place] Magnesium [facility] Magnesium [Mass/Vol] 3.0 mg/dL High 1.7-2.3 [facility] Comment on above: Order Comment: Speci men Type: BLOOD SPECIMEN Performed By: #### 2 4321-2, 2777-1, 31168-7 ####[facility]ATORYCLIA [id number] [address] [place] NT-proBNP [facility] 06-15 Natriuretic peptide.B prohormone N-Terminal [Mass/Vol] 265 pg/mL High <125 [facility] Comment on above: Order Comment: Speci men Type: BLOOD SPECIMENOrdering Facility: [facility] Address: [address] [place] [address] Performed By: #### P ROCAL, 22390-5, HSTNT ####[facility] [id number] [address] [place] Osmolality Uron 06-15-2021 Osmolality (U) [Osmolality] 606 mosm/kg Normal 50-1,200 [facility] Comment on above: Order Comment: Speci men Type: URINE SPECIMENOrdering Facility: [facility] Address: [address] [place] [address] Performed By: #### 2 695-5 ####[facility]ORATORYCLIA [id number] [address] [place] PROCALCITONIN (LAB)on 2021 Procalcitonin [Mass/Vol] 0.21 ng/mL High <0.09 [facility] Comment on above: Order Comment: Speci men Type: BLOOD SPECIMENOrdering Facility: [facility] Address: [address] [place] [address] Result Comment: For a guided interpretation of test results, please visit the Change in Procalcitonin Calculator, [email or web address]. Performed By: #### P JULIANNE, 2951-2 ####[facility]ATORYCLIA [id number] [address] Procalcitonin [Mass/Vol] 0.17 ng/mL High <0.09 [facility] Comment on above: Order Comment: Speci men Type: BLOOD SPECIMENOrdering Facility: [facility] Address: [address] [place] [address] Result Comment: For a guided interpretation of test results, please visit the Change in Procalcitonin Calculator, [email or web address]. Performed By: #### P JULIANNE, 17611-0, HSTNT ####[facility]ITALIA [id number] [address] OF [facility] PROTEIN RANDOM URon 06-15-19 22 Protein (U) [Mass/Vol] 175 mg/dL High 0-[address] [facility] Comment on above: Order Comment: Speci men Type: URINE SPECIMENOrdering Facility: [facility] Address: [address] [place] [address] Performed By: #### U TPR, 73386-2, 52246-0, 26536-8 ####[facility]ITALCLIA [id number] [address] [place] PT panel Coag (PPP)on 2021 INR Coag (PPP) [Relative time] 1.1 {INR} Normal <1.4 [facility] Comment on above: Order Comment: Speci men Type: BLOOD SPECIMENOrdering Facility: [facility] Address: [address] [place] [address] Result Comment: Yris min K Antagonist (VKA) Therapeutic Range: INR 2 to 3 (Target INR of 2.5)Note: For patients treated with VKA drugs, such as warfarin, the [place] [employer] 2012 Guideline recommends [...] al. Chest 2012, 141:7S-47SNishimura RA, et al. [facility] 2017, 70: 252-289 Performed By: #### 3 4528-0, 55345-5 ####[facility] LABORATORYCLIA [id number] [place] [address] [place] PT Coag (PPP) [Time] 11.4 s Normal <13.1 [facility] Comment on above: Order Comment: Speci men Type: BLOOD SPECIMENOrdering Facility: [facility] Address: [address] [place] [address] Performed By: #### 3 4528-0, 71446-2 ####[facility]ORATORYCLIA [id number] [place] [address] [place] Phosphate SerPl-mCncon 06-15 Phosphate [Mass/Vol] 2.6 mg/dL Low 2.7-4.8 [facility] Comment on above: Order Comment: Speci men Type: BLOOD SPECIMEN Performed By: #### 2 4321-2, 2777-1, 26204-0 ####[facility]ATORYCLIA [id number] [place] [address] [place] Sodium ?Tm Ur-sCncon 022 Sodium Unsp time (U) [Moles/Vol] 34 mmol/L Normal 14-216 [facility] Comment on above: Order Comment: Speci men Type: URINE SPECIMENOrdering Facility: [facility] Address: [address] [place] [address] Performed By: #### U TPR, 29492-5, 52629-0, 84958-7 ####[facility]ATORYCLIA [id number] [address] [place] Sodium SerPl-sCncon 06-15-19 Sodium [Moles/Vol] 159 mmol/L High 136-144 [facility] Comment on above: Order Comment: Speci men Type: BLOOD SPECIMENOrdering Facility: [facility] Address: [address] [place] [address] Performed By: #### P JULIANNE, 2951-2 ####[facility]ATORYCLIA [id number] [address] [place] THERAPY NTon 06-15-2021 THERAPY NT Normal [facility] Urinalysis complete panel (U )on 06-15-2021 Bacteria LM.HPF (Urine sed) [#/Area] None Seen Normal None Seen [facility] Comment on above: Order Comment: Speci men Type: URINE SPECIMENOrdering Facility: [facility] Address: [address] [place] [address] Performed By: #### 2 4356-8 ####[facility]ITALCLIA [id number] [address] [place] Bilirubin Ql (U) Negative Normal Negative [facility] Comment on above: Order Comment: Speci men Type: URINE SPECIMENOrdering Facility: [facility] Address: [address] [place] [address] Performed By: #### 2 4356-8 ####[facility]ORATORYCLIA [id number] [address] [place] Clarity (Unsp spec) Cloudy Abnormal Clear [facility] Comment on above: Order Comment: Speci men Type: URINE SPECIMENOrdering Facility: [facility] Address: [address] [place] [address] Performed By: #### 2 4356-8 ####[facility]ATORYCLIA [id number] [address] [place] Color (U) Yellow Normal Yellow [facility] Comment on above: Order Comment: Speci men Type: URINE SPECIMENOrdering Facility: [facility] Address: [address] [place] [address] Performed By: #### 2 4356-8 ####[facility]ORATORYCLIA [id number] [address] Epithelial cells LM.HPF (Urine sed) [#/Area] 7.1 /[HPF] Normal [facility] Comment on above: Order Comment: Speci men Type: URINE SPECIMENOrdering Facility: [facility] Address: [address] [place] [address] Performed By: #### 2 4356-8 ####[facility]ATORYCLIA [id number] [address] Glucose Test strip (U) [Mass/Vol] Negative Normal Negative [facility] Comment on above: Order Comment: Speci men Type: URINE SPECIMENOrdering Facility: [facility] Address: [address] [place] [address] Performed By: #### 2 4356-8 ####[facility]ORATORYCLIA [id number] [address] Granular casts (Urine sed) [#/Area] /[LPF] Abnormal 0 /LPF [facility] Comment on above: Order Comment: Speci men Type: URINE SPECIMENOrdering Facility: [facility] Address: [address] [place] [address] Performed By: #### 2 4356-8 ####[facility]ORATORYCLIA [id number] [address] Hemoglobin Ql (U) Moderate Abnormal Negative [facility] Comment on above: Order Comment: Speci men Type: URINE SPECIMENOrdering Facility: [facility] Address: [address] [place] [address] Performed By: #### 2 4356-8 ####[facility]ATORYCLIA [id number] [address] Hyaline casts (Urine sed) [#/Area] /[LPF] Abnormal 0 /LPF [facility] Comment on above: Order Comment: Speci men Type: URINE SPECIMENOrdering Facility: [facility] Address: [address] [place] [address] Performed By: #### 2 4356-8 ####[facility] LABORATORYCLIA [id number] [address] Ketones Ql (U) Negative Normal Negative [facility] Comment on above: Order Comment: Speci men Type: URINE SPECIMENOrdering Facility: [facility] Address: [address] [place] [address] Performed By: #### 2 4356-8 ####[facility]ORATORYCLIA [id number] [address] Leukocyte esterase Test strip Ql (U) Negative Normal Negative [facility] Comment on above: Order Comment: Speci men Type: URINE SPECIMENOrdering Facility: [facility] Address: [address] [place] [address] Performed By: #### 2 4356-8 ####[facility]ORATORYCLIA [id number] [address] STATES [facility] Nitrite Ql (U) Negative Normal Negative [facility] Comment on above: Order Comment: Speci men Type: URINE SPECIMENOrdering Facility: [facility] Address: [address] [place] [address] Performed By: #### 2 4356-8 ####[facility]ORATORYCLIA [id number] [address] [place] pH (U) 6.0 [pH] Normal 5.0-8.0 [facility] Comment on above: Order Comment: Speci men Type: URINE SPECIMENOrdering Facility: [facility] Address: [address] [place] [address] Performed By: #### 2 4356-8 ####[facility]ORATORYCLIA [id number] [address] [place] Protein (U) [Mass/Vol] 100 mg/dL Abnormal Negative [facility] Comment on above: Order Comment: Speci men Type: URINE SPECIMENOrdering Facility: [facility] Address: [address] [place] [address] Performed By: #### 2 4356-8 ####[facility]ORATORYCLIA [id number] [address] STATES [facility] RBC LM.HPF (Urine sed) [#/Area] 0-3 /HPF Normal 0-3 /HPF [facility] Comment on above: Order Comment: Speci men Type: URINE SPECIMENOrdering Facility: [facility] Address: [address] [place] [address] Performed By: #### 2 4356-8 ####[facility]ITALCLIA [id number] [address] Specific gravity (U) [Rel density] 1.024 Normal 1.005-1.030 [facility] Comment on above: Order Comment: Speci men Type: URINE SPECIMENOrdering Facility: [facility] Address: [address] [place] [address] Performed By: #### 2 4356-8 ####[facility]ORATORYCLIA [id number] [address] Urobilinogen Ql (U) 0.2 EU/dL Normal 0.2-1.0 EU/dL [facility] Comment on above: Order Comment: Speci men Type: URINE SPECIMENOrdering Facility: [facility] Address: [address] [place] [address] Performed By: #### 2 4356-8 ####[facility]ORATORYCLIA [id number] [address] STATES [facility] WBC LM.HPF (Urine sed) [#/Area] 0-5 /HPF Normal 0-5 /HPF [facility] Comment on above: Order Comment: Speci men Type: URINE SPECIMENOrdering Facility: [facility] Address: [address] [place] [address] Performed By: #### 2 4356-8 ####[facility]ORATORYCLIA [id number] [place] [address] [place] XR CHEST 1V FRONTALon 2021 XR CHEST 1V FRONTAL Normal [facility] XR CHEST 1V FRONTAL PORTon 0 06-15-2021 XR CHEST 1V FRONTAL PORT Normal [facility] XR CHEST 1V FRONTAL PORT Normal [facility] aPTT PPPon 06-15-2021 aPTT Coag (PPP) [Time] 30.9 s Normal 23.0-32.[address] [facility] Comment on above: Order Comment: Speci men Type: BLOOD SPECIMENOrdering Facility: [facility] Address: [address] [place] [id number] Performed By: #### 3 4528-0, 27696-5 ####[facility]ORATORYCLIA [id number] [place] [address] [place] Basic metabolic 2000 panelon 06-14-2021 Anion gap [Moles/Vol] 8 mmol/L Low 9-18 [facility] Comment on above: Order Comment: Speci men Type: BLOOD SPECIMEN Performed By: #### 2 4321-2, 2776-05, ####[facility]ATORYCLIA [id number] [place] [address] [place] Calcium [Mass/Vol] 8.9 mg/dL Normal 8.5-10.2 [facility] Comment on above: Order Comment: Speci men Type: BLOOD SPECIMEN Performed By: #### 2 4321-2, 2776-05, ####[facility]ATORYCLIA [id number] [place] [address] [place] Chloride [Moles/Vol] 121 mmol/L High 97-105 [facility] Comment on above: Order Comment: Speci men Type: BLOOD SPECIMEN Performed By: #### 2 4321-2, 2776-, ####[facility]ATORYCLIA [id number] [place] [address] [place] CO2 [Moles/Vol] 30 mmol/L Normal 22-30 [facility] Comment on above: Order Comment: Speci men Type: BLOOD SPECIMEN Performed By: #### 2 4321-2, 277-, ####[facility]ATORYCLIA [id number] [place] [address] [place] Creatinine [Mass/Vol] 0.78 mg/dL Normal 0.73-1.22 [facility] Comment on above: Order Comment: Speci men Type: BLOOD SPECIMEN Performed By: #### 2 4321-2, 2776-05, ####[facility]ATORYCLIA [id number] [place] [address] [place] GFR/1.73 sq M.predicted MDRD (S/P/Bld) [Vol rate/Area] mL/min/{1.73_m2} Normal [facility] Comment on above: [...] GFR. Performed By: #### 2 4321-2, 2777, ####[facility]ATORYCLIA [id number] [place] [address] [place] Glucose [Mass/Vol] 132 mg/dL High 74-99 [facility] Comment on above: Order Comment: Speci men Type: BLOOD SPECIMEN Result Comment: The [place] [employer] (ADA) provides guidance for cutoff [...] Standards of Medical Care in Diabetes 2016, [place] [employer]. Diabetes Care. 2016.39(Suppl 1). Performed By: #### 2 4321-2, 2776-05, ####[facility]ATORYCLIA [id number] [address] Potassium [Moles/Vol] 3.7 mmol/L Normal 3.7-5.1 [facility] Comment on above: Order Comment: Speci men Type: BLOOD SPECIMEN Performed By: #### 2 4321-2, 2776-05, ####[facility]ATORYCLIA [id number] [address] Sodium [Moles/Vol] 159 mmol/L High 136-144 [facility] Comment on above: Order Comment: Speci men Type: BLOOD SPECIMEN Performed By: #### 2 4321-2, 2776-05, ####[facility]ORYCLIA [id number] [address] Urea nitrogen [Mass/Vol] 35 mg/dL High 9-24 [facility] Comment on above: Order Comment: Speci men Type: BLOOD SPECIMEN Performed By: #### 2 4321-2, 2776-05, ####[facility]ATORYCLIA [id number] [address] [place] CASE MANAGEMon 06-14-2021 CASE MANAGEM Normal [facility] CBC panel Auto (Bld)on 06-14 Erythrocyte distribution width (RBC) [Ratio] 16.2 % High 11.5-15.0 [facility] Comment on above: Order Comment: Speci men Type: BLOOD SPECIMEN Performed By: #### 5 8410-2 ####[facility]ATORYCLIA [id number] [address] Hematocrit (Bld) [Volume fraction] 35.2 % Low 39.0-51.0 [facility] Comment on above: Order Comment: Speci men Type: BLOOD SPECIMEN Performed By: #### 5 8410-2 ####[facility]ATORYCLIA [id number] [address] Hemoglobin (Bld) [Mass/Vol] 10.1 g/dL Low 13.0-17.0 [facility] Comment on above: Order Comment: Speci men Type: BLOOD SPECIMEN Performed By: #### 5 8410-2 ####[facility]ATORYCLIA [id number] [address] MCH (RBC) [Entitic mass] 27.2 pg Normal 26.0-34.0 [facility] Comment on above: Order Comment: Speci men Type: BLOOD SPECIMEN Performed By: #### 5 8410-2 ####[facility]ORYCLIA [id number] [address] MCHC (RBC) [Mass/Vol] 28.7 g/dL Low 30.5-36.0 [facility] Comment on above: Order Comment: Speci men Type: BLOOD SPECIMEN Performed By: #### 5 8410-2 ####[facility]ORYCLIA [id number] [address] MCV (RBC) [Entitic vol] 94.6 fL Normal 80.0-100.0 [facility] Comment on above: Order Comment: Speci men Type: BLOOD SPECIMEN Performed By: #### 5 8410-2 ####[facility]ATORYCLIA [id number] [address] Nucleated RBC (Bld) [#/Vol] 10*3/uL Normal <0.01 [facility] Comment on above: Order Comment: Speci men Type: BLOOD SPECIMEN Performed By: #### 5 8410-2 ####[facility]ORYCLIA [id number] [address] Platelet mean volume (Bld) [Entitic vol] 11.0 fL Normal 9.0-12.7 [facility] Comment on above: Order Comment: Speci men Type: BLOOD SPECIMEN Performed By: #### 5 8410-2 ####[facility]ATORYCLIA [id number] [address] Platelets (Bld) [#/Vol] 287 10*3/uL Normal 150-400 [facility] Comment on above: Order Comment: Speci men Type: BLOOD SPECIMEN Performed By: #### 5 8410-2 ####[facility]ORYCLIA [id number] [address] RBC (Bld) [#/Vol] 3.72 10*6/uL Low 4.20-6.00 [facility] Comment on above: Order Comment: Speci men Type: BLOOD SPECIMEN Performed By: #### 5 8410-2 ####[facility]ATORYCLIA [id number] [address] WBC (Bld) [#/Vol] 12.23 10*3/uL High 3.70-11.00 [facility] Comment on above: Order Comment: Speci men Type: BLOOD SPECIMEN Performed By: #### 5 8410-2 ####[facility]ORYCLIA [id number] [address] Comprehensive metabolic 2000 panelon 06-14-2021 Albumin [Mass/Vol] 3.1 g/dL Low 3.9-4.9 [facility] Comment on above: Order Comment: Speci men Type: BLOOD SPECIMEN Performed By: #### 2 4323-8, HSTNT, 2777-1, 90244-5 ####[facility]ATORYCLIA [id number] [address] ALP [Catalytic activity/Vol] 72 U/L Normal 38-113 [facility] Comment on above: Order Comment: Speci men Type: BLOOD SPECIMEN Performed By: #### 2 4323-8, HSTNT, 2776-05, ####[facility]ORATORYCLIA [id number] [place], [place] [address] [place] [address] STATES OF [facility] ALT With P-5'-P [Catalytic activity/Vol] 57 U/L High 10-54 [facility] Comment on above: Order Comment: Speci men Type: BLOOD SPECIMEN Performed By: #### 2 4323-8, HSTNT, 2776-05, ####[facility]ORATORYCLIA [id number] [place], [place] [address] [place] [address] OF [facility] Anion gap [Moles/Vol] 9 mmol/L Normal 9-18 [facility] Comment on above: Order Comment: Speci men Type: BLOOD SPECIMEN Performed By: #### 2 4323-8, HSTNT, 2776-05, ####[facility] LABORATORYCLIA [id number] [address] OF [facility] AST With P-5'-P [Catalytic activity/Vol] 33 U/L Normal 14-40 [facility] Comment on above: Order Comment: Speci men Type: BLOOD SPECIMEN Performed By: #### 2 4323-8, HSTNT, 2776-05, ####[facility]ORATORYCLIA [id number] [place], [place] [id number] [place] [address] [place] Bilirubin [Mass/Vol] 0.5 mg/dL Normal 0.2-1.3 [facility] Comment on above: Order Comment: Speci men Type: BLOOD SPECIMEN Performed By: #### 2 4323-8, HSTNT, 2776-05, ####[facility]ORYCLIA [id number] [place], [place] [id number] [place] [address] OF [facility] Calcium [Mass/Vol] 8.8 mg/dL Normal 8.5-10.2 [facility] Comment on above: Order Comment: Speci men Type: BLOOD SPECIMEN Performed By: #### 2 4323-8, HSTNT, 2776-05, ####[facility]ORATORYCLIA [id number] [place], [place] [id number] [place] [address] [place] [place] Chloride [Moles/Vol] 124 mmol/L High 97-105 [facility] Comment on above: Order Comment: Speci men Type: BLOOD SPECIMEN Performed By: #### 2 4323-8, HSTNT, 2776-05, ####[facility]ATORYCLIA [id number] [address] [place] CO2 [Moles/Vol] 29 mmol/L Normal 22-30 [facility] Comment on above: Order Comment: Speci men Type: BLOOD SPECIMEN Performed By: #### 2 4323-8, HSTNT, 2776-05, ####[facility]ORYCLIA [id number] [address] [place] Creatinine [Mass/Vol] 0.73 mg/dL Normal 0.73-1.22 [facility] Comment on above: Order Comment: Speci men Type: BLOOD SPECIMEN Performed By: #### 2 4323-8, HSTNT, 2776-05, ####[facility]ORYCLIA [id number] [address] [place] GFR/1.73 sq M.predicted MDRD (S/P/Bld) [Vol rate/Area] mL/min/{1.73_m2} Normal [facility] Comment on above: [...] GFR. Performed By: #### 2 4323-8, HSTNT, ####[facility]ATORYCLIA [id number] [place] [address] [place] Glucose [Mass/Vol] 137 mg/dL High 74-99 [facility] Comment on above: Order Comment: Speci men Type: BLOOD SPECIMEN Result Comment: The [place] [employer] (ADA) provides guidance for cutoff [...] Standards of Medical Care in Diabetes 2016, [place] [employer]. Diabetes Care. 2016.39(Suppl 1). Performed By: #### 2 4323-8, HSTNT, ####[facility]ATORYCLIA [id number] [place] [address] [place] Potassium [Moles/Vol] 3.6 mmol/L Low 3.7-5.1 [facility] Comment on above: Order Comment: Speci men Type: BLOOD SPECIMEN Performed By: #### 2 4323-8, HSTNT, ####[facility]ATORYCLIA [id number] [place] [address] [place] Protein [Mass/Vol] 5.9 g/dL Low 6.3-8.0 [facility] Comment on above: Order Comment: Speci men Type: BLOOD SPECIMEN Performed By: #### 2 4323-8, HSTNT, ####[facility]ORYCLIA [id number] [place] [address] [place] Sodium [Moles/Vol] 162 mmol/L High 136-144 [facility] Comment on above: Order Comment: Speci men Type: BLOOD SPECIMEN Performed By: #### 2 4323-8, HSTNT, 2776-05, ####[facility]ORATORYCLIA [id number] [address] STATES OF [facility] Urea nitrogen [Mass/Vol] 33 mg/dL High 9-24 [facility] Comment on above: Order Comment: Speci men Type: BLOOD SPECIMEN Performed By: #### 2 4323-8, HSTNT, 2776-05, ####[facility]ORYCLIA [id number] [address] HIGH SENSITIVITY TROPONIN To n 06-14-2021 HIGH SENSITIVITY TAMIKO 22 ng/L High <12 [facility] Comment on above: Order Comment: Speci [...] day MACE. Performed By: #### H STNT ####[facility]ATORYCLIA [id number] [address] HIGH SENSITIVITY TMAIKO 22 ng/L High <12 [facility] Comment on above: Order Comment: Speci [...] Performed By: #### 2 4323-8, HSTNT, 2776-05, ####[facility]ORYCLIA [id number] [address] [place] Magnesium SerPl-mCncon 06-14 Magnesium [Mass/Vol] 2.9 mg/dL High 1.7-2.3 [facility] Comment on above: Order Comment: Speci men Type: BLOOD SPECIMEN Performed By: #### 2 4323-8, HSTNT, 2776-05, ####[facility]ATORYCLIA [id number] [place], [place] [id number] [place] [address] STATES OF [facility] Magnesium [Mass/Vol] 3.0 mg/dL High 1.7-2.3 [facility] Comment on above: Order Comment: Speci men Type: BLOOD SPECIMEN Performed By: #### 2 4321-2, 2776-05, ####[facility]ATORYCLIA [id number] [place], [place] [address] [place] [address] [place] NURSING PROGon 06-14-2021 NURSING PROG Normal [facility] NUTRITIONon 06-14-2021 NUTRITION Normal [facility] Phosphate SerPl-mCncon 06-14 Phosphate [Mass/Vol] 2.4 mg/dL Low 2.7-4.8 [facility] Comment on above: Order Comment: Speci men Type: BLOOD SPECIMEN Performed By: #### 2 4323-8, HSTNT, 2776-05, ####[facility]ATORYCLIA [id number] [place], [place] [address] [place] [address] STATES OF [facility] Phosphate [Mass/Vol] 3.2 mg/dL Normal 2.7-4.8 [facility] Comment on above: Order Comment: Speci men Type: BLOOD SPECIMEN Performed By: #### 2 4321-2, 2776-05, ####[facility]ATORYCLIA [id number] [place], [place] [address] [place] [address] [place] THERAPY NTon 06-14-2021 THERAPY NT Normal [facility] THERAPY NT Normal [facility] THERAPY NT Normal [facility] US DVT LOWER BILon US DVT LOWER RAINER Normal [facility] ALLIED HEALTHon 06-13-2021 ALLIED HEALTH Normal [facility] Basic metabolic 2000 panelon 06-13-2021 Anion gap [Moles/Vol] 7 mmol/L Low 9-18 [facility] Comment on above: Order Comment: Speci men Type: BLOOD SPECIMEN Performed By: #### 2 4321-2, , 2776-05 ####[facility]ORYCLIA [id number] [address] STATES OF [facility] Calcium [Mass/Vol] 8.8 mg/dL Normal 8.5-10.2 [facility] Comment on above: Order Comment: Speci men Type: BLOOD SPECIMEN Performed By: #### 2 4321-2, , 2776-05 ####[facility]ORYCLIA [id number] [address] STATES OF [facility] Chloride [Moles/Vol] 120 mmol/L High 97-105 [facility] Comment on above: Order Comment: Speci men Type: BLOOD SPECIMEN Performed By: #### 2 4321-2, , 2776-05 ####[facility]ORYCLIA [id number] [address] STATES OF [facility] CO2 [Moles/Vol] 28 mmol/L Normal 22-30 [facility] Comment on above: Order Comment: Speci men Type: BLOOD SPECIMEN Performed By: #### 2 4321-2, , 2776-05 ####[facility]ORYCLIA [id number] [address] [place] Creatinine [Mass/Vol] 0.78 mg/dL Normal 0.73-1.22 [facility] Comment on above: Order Comment: Speci men Type: BLOOD SPECIMEN Performed By: #### 2 4321-2, , 2776-05 ####[facility]ATORYCLIA [id number] [address] [place] GFR/1.73 sq M.predicted MDRD (S/P/Bld) [Vol rate/Area] mL/min/{1.73_m2} Normal [facility] Comment on above: [...] Performed By: #### 2 4321-2, , 2776-05 ####[facility] [id number] [place] [address] [place] Glucose [Mass/Vol] 126 mg/dL High 74-99 [facility] Comment on above: Order Comment: Speci men Type: BLOOD SPECIMEN Result Comment: The [place] Diabetes [employer] (ADA) provides guidance for cutoff [...] Standards of Medical Care in Diabetes 2016, [place] [employer]. Diabetes Care. 2016.39(Suppl 1). Performed By: #### 2 4321-2, , 2776-05 ####[facility]ATORYCLIA [id number] [place] [address] [place] Potassium [Moles/Vol] 3.6 mmol/L Low 3.7-5.1 [facility] Comment on above: Order Comment: Speci men Type: BLOOD SPECIMEN Performed By: #### 2 4321-2, , 2776-05 ####[facility]ATORYCLIA [id number] [place] [id number] [place] Sodium [Moles/Vol] 155 mmol/L High 136-144 [facility] Comment on above: Order Comment: Speci men Type: BLOOD SPECIMEN Performed By: #### 2 4321-2, , 2776-05 ####[facility] LABORATORYCLIA [id number] [place] [address] [place] Urea nitrogen [Mass/Vol] 36 mg/dL High 9-24 [facility] Comment on above: Order Comment: Speci men Type: BLOOD SPECIMEN Performed By: #### 2 4321-2, , 2776-05 ####[facility]ORYCLIA [id number] [place], [place] [address] [place] [address] STATES [facility] Anion gap [Moles/Vol] 6 mmol/L Low 9-18 [facility] Comment on above: Order Comment: Speci men Type: BLOOD SPECIMEN Performed By: #### 2 4321-2, 2776-05, ####[facility]ORYCLIA [id number] [place], [place] [address] [place] [address] STATES OF [facility] Calcium [Mass/Vol] 6.5 mg/dL Low 8.5-10.2 [facility] Comment on above: Order Comment: Speci men Type: BLOOD SPECIMEN Performed By: #### 2 4321-2, 2776-05, ####[facility] LABORATORYCLIA [id number] [place] [address] [place] Chloride [Moles/Vol] 124 mmol/L High 97-105 [facility] Comment on above: Order Comment: Speci men Type: BLOOD SPECIMEN Performed By: #### 2 4321-2, 2776-05, ####[facility]ATORYCLIA [id number] [place] [address] [place] CO2 [Moles/Vol] 24 mmol/L Normal 22-30 [facility] Comment on above: Order Comment: Speci men Type: BLOOD SPECIMEN Performed By: #### 2 4321-2, 2776-05, ####[facility]ATORYCLIA [id number] [place] [address] [place] Creatinine [Mass/Vol] 0.61 mg/dL Low 0.73-1.22 [facility] Comment on above: Order Comment: Speci men Type: BLOOD SPECIMEN Performed By: #### 2 4321-2, 2777-1, ####[facility]ATORYCLIA [id number] [place] [address] [place] GFR/1.73 sq M.predicted MDRD (S/P/Bld) [Vol rate/Area] mL/min/{1.73_m2} Normal [facility] Comment on above: Order Comment: Spec men [...] actual GFR. Performed By: #### 2 4321-2, 7-, ####[facility]ITALIA [id number] [place] [address] [place] Glucose [Mass/Vol] 100 mg/dL High 74-99 [facility] Comment on above: Order Comment: Speci [facility] Type: BLOOD SPECIMEN Result Comment: The [place] [employer] (ADA) provides guidance for cutoff [...] Standards of Medical Care in Diabetes 2016, [place] [employer]. Diabetes Care. 2016.39(Suppl 1). Performed By: #### 2 4321-2, 7-, ####[facility]ATORYCLIA [id number] [place], [place] [address] [place] [address] STATES OF [facility] Potassium [Moles/Vol] 2.7 mmol/L Low 3.7-5.1 [facility] Comment on above: Order Comment: Speci men Type: BLOOD SPECIMEN Performed By: #### 2 4321-2, 2776-, ####[facility]ATORYCLIA [id number] [address] Sodium [Moles/Vol] 154 mmol/L High 136-144 [facility] Comment on above: Order Comment: Speci men Type: BLOOD SPECIMEN Performed By: #### 2 4321-2, 2776-05, ####[facility]ORYCLIA [id number] [address] Urea nitrogen [Mass/Vol] 29 mg/dL High 9-24 [facility] Comment on above: Order Comment: Speci men Type: BLOOD SPECIMEN Performed By: #### 2 4321-2, 2776-05, ####[facility]ATORYCLIA [id number] [address] CASE MANAGEMon 06-13-2021 CASE MANAGEM Normal [facility] CBC panel Auto (Bld)on 06-13 Erythrocyte distribution width (RBC) [Ratio] 15.9 % High 11.5-15.0 [facility] Comment on above: Order Comment: Speci men Type: BLOOD SPECIMEN Performed By: #### 5 8410-2 ####[facility]ATORYCLIA [id number] [place], [place] [id number] [place] [address] Hematocrit (Bld) [Volume fraction] 34.3 % Low 39.0-51.0 [facility] Comment on above: Order Comment: Speci men Type: BLOOD SPECIMEN Performed By: #### 5 8410-2 ####[facility]ATORYCLIA [id number] [address] Hemoglobin (Bld) [Mass/Vol] 9.9 g/dL Low 13.0-17.0 [facility] Comment on above: Order Comment: Speci men Type: BLOOD SPECIMEN Performed By: #### 5 8410-2 ####[facility]ATORYCLIA [id number] [address] MCH (RBC) [Entitic mass] 27.3 pg Normal 26.0-34.0 [facility] Comment on above: Order Comment: Speci men Type: BLOOD SPECIMEN Performed By: #### 5 8410-2 ####[facility]ATORYCLIA [id number] [address] MCHC (RBC) [Mass/Vol] 28.9 g/dL Low 30.5-36.0 [facility] Comment on above: Order Comment: Speci men Type: BLOOD SPECIMEN Performed By: #### 5 8410-2 ####[facility]ATORYCLIA [id number] [address] MCV (RBC) [Entitic vol] 94.5 fL Normal 80.0-100.0 [facility] Comment on above: Order Comment: Speci men Type: BLOOD SPECIMEN Performed By: #### 5 8410-2 ####[facility]ATORYCLIA [id number] [address] Nucleated RBC (Bld) [#/Vol] 10*3/uL Normal <0.01 [facility] Comment on above: Order Comment: Speci men Type: BLOOD SPECIMEN Performed By: #### 5 8410-2 ####[facility]ATORYCLIA [id number] [address] Platelet mean volume (Bld) [Entitic vol] 11.3 fL Normal 9.0-12.7 [facility] Comment on above: Order Comment: Speci men Type: BLOOD SPECIMEN Performed By: #### 5 8410-2 ####[facility]ATORYCLIA [id number] [address] Platelets (Bld) [#/Vol] 269 10*3/uL Normal 150-400 [facility] Comment on above: Order Comment: Speci men Type: BLOOD SPECIMEN Performed By: #### 5 8410-2 ####[facility]ATORYCLIA [id number] [address] RBC (Bld) [#/Vol] 3.63 10*6/uL Low 4.20-6.00 [facility] Comment on above: Order Comment: Speci men Type: BLOOD SPECIMEN Performed By: #### 5 8410-2 ####[facility]ORYCLIA [id number] [address] WBC (Bld) [#/Vol] 12.77 10*3/uL High 3.70-11.00 [facility] Comment on above: Order Comment: Speci men Type: BLOOD SPECIMEN Performed By: #### 5 8410-2 ####[facility]ATORYCLIA [id number] [address] Gas and Carbon monoxide pane l (BldV)on 06-13-2021 Base excess Calc (BldV) [Moles/Vol] 5.7 mmol/L High 0-2 [facility] Comment on above: Order Comment: Speci men Type: VENOUS BLOOD SPECIMEN Performed By: #### 2 4344-4 ####[facility]ATORYCLIA [id number] [address] Body temperature 99.5 [degF] Normal [facility] Comment on above: Order Comment: Speci men Type: VENOUS BLOOD SPECIMEN Performed By: #### 2 4344-4 ####[facility]ATORYCLIA [id number] [address] OF [facility] CALCIUM IONIZED, PH CORRECTED 1.24 mmol/L Normal 1.08-1.30 [facility] Comment on above: Order Comment: Speci men Type: VENOUS BLOOD SPECIMEN Performed By: #### 2 4344-4 ####[facility]ORYCLIA [id number] [address] Calcium.ionized (BldV) [Mass/Vol] 1.23 mmol/L Normal 1.08-1.30 [facility] Comment on above: Order Comment: Speci men Type: VENOUS BLOOD SPECIMEN Performed By: #### 2 4344-4 ####[facility]ATORYCLIA [id number] [address] Carboxyhemoglobin (BldV) [Mass fraction] 1.2 % Normal 0.0-2.0 [facility] Comment on above: Order Comment: Speci men Type: VENOUS BLOOD SPECIMEN Result Comment: Carb oxyhemoglobin Reference Range for Smokers: 2.0-8.0% Performed By: #### 2 4344-4 ####[facility]ORYCLIA [id number] [address] CO2 (BldV) [Partial pressure] 48 mm[Hg] Normal 42-55 [facility] Comment on above: Order Comment: Speci men Type: VENOUS BLOOD SPECIMEN Performed By: #### 2 4344-4 ####[facility]ORYCLIA [id number] [address] CO2 [Moles/Vol] 28.2 mmol/L Normal 25-29 [facility] Comment on above: Order Comment: Speci men Type: VENOUS BLOOD SPECIMEN Performed By: #### 2 4344-4 ####[facility]ORYCLIA [id number] [address] CO2 adjusted to patient's actual temperature (BldV) [Partial pressure] 49 mmHg Normal 42-55 [facility] Comment on above: Order Comment: Speci men Type: VENOUS BLOOD SPECIMEN Performed By: #### 2 4344-4 ####[facility]ORYCLIA [id number] [address] Glucose [Mass/Vol] 131 mg/dL High 60-105 [facility] Comment on above: Order Comment: Speci men Type: VENOUS BLOOD SPECIMEN Performed By: #### 2 4344-4 ####[facility]ORYCLIA [id number] [address] [place] HCO3 (Bld) [Moles/Vol] 30.6 mmol/L High 24-28 [facility] Comment on above: Order Comment: Speci men Type: VENOUS BLOOD SPECIMEN Performed By: #### 2 4344-4 ####[facility]ORYCLIA [id number] [address] [place] Hematocrit (Bld) [Volume fraction] 32.8 % Low 39.0-51.0 [facility] Comment on above: Order Comment: Speci men Type: VENOUS BLOOD SPECIMEN Performed By: #### 2 4344-4 ####[facility]ORYCLIA [id number] [address] [place] Hemoglobin (Bld) [Mass/Vol] 10.6 g/dL Low 13.0-17.0 [facility] Comment on above: Order Comment: Speci men Type: VENOUS BLOOD SPECIMEN Performed By: #### 2 4344-4 ####[facility]ORYCLIA [id number] [address] [place] LITERS 6 Liters/min Normal [facility] Comment on above: Order Comment: Speci men Type: VENOUS BLOOD SPECIMEN Performed By: #### 2 4344-4 ####[facility]ORYCLIA [id number] [address] [place] Methemoglobin (Bld) [Mass fraction] 1.0 % Normal 0.0-1.5 [facility] Comment on above: Order Comment: Speci men Type: VENOUS BLOOD SPECIMEN Performed By: #### 2 4344-4 ####[facility]ORYCLIA [id number] [address] [place] O2 THERAPY NC = Nasal Cannula Normal [facility] Comment on above: Order Comment: Speci men Type: VENOUS BLOOD SPECIMEN Performed By: #### 2 4344-4 ####[facility]ORYCLIA [id number] [place], [place] [address] [place] [address] Oxygen (BldV) [Partial pressure] 42 mm[Hg] Normal 35-45 [facility] Comment on above: Order Comment: Speci men Type: VENOUS BLOOD SPECIMEN Performed By: #### 2 4344-4 ####[facility]ORYCLIA [id number] [address] Oxygen adjusted to patient's actual temperature (BldV) [Partial pressure] 43.8 mmHg Normal 35-45 [facility] Comment on above: Order Comment: Speci men Type: VENOUS BLOOD SPECIMEN Performed By: #### 2 4344-4 ####[facility]ORYCLIA [id number] [address] Oxygen saturation in Blood 76.7 % Normal 60-85 [facility] Comment on above: Order Comment: Speci men Type: VENOUS BLOOD SPECIMEN Performed By: #### 2 4344-4 ####[facility]ORYCLIA [id number] [address] Oxyhemoglobin (BldV) [Mass fraction] 75 % Normal 60-85 [facility] Comment on above: Order Comment: Speci men Type: VENOUS BLOOD SPECIMEN Performed By: #### 2 4344-4 ####[facility]ORYCLIA [id number] [address] [place] pH (BldV) 7.42 [pH] Normal 7.32-7.42 [facility] Comment on above: Order Comment: Speci men Type: VENOUS BLOOD SPECIMEN Performed By: #### 2 4344-4 ####[facility]ORYCLIA [id number] [address] pH adjusted to patient's actual temperature (BldV) 7.41 Normal 7.32-7.42 [facility] Comment on above: Order Comment: Speci men Type: VENOUS BLOOD SPECIMEN Performed By: #### 2 4344-4 ####[facility]ORYCLIA [id number] [place], [place] [address] [place] [address] [place] Potassium [Moles/Vol] 3.5 mmol/L Normal 3.5-5.0 [facility] Comment on above: Order Comment: Speci men Type: VENOUS BLOOD SPECIMEN Performed By: #### 2 4344-4 ####[facility]ORYCLIA [id number] [place] [address] [place] Sodium [Moles/Vol] 157 mmol/L High 136-144 [facility] Comment on above: Order Comment: Speci men Type: VENOUS BLOOD SPECIMEN Performed By: #### 2 4344-4 ####[facility]ORYCLIA [id number] [address] [place] Magnesium SerPl-ncon 06-13 Magnesium [Mass/Vol] 3.0 mg/dL High 1.7-2.3 [facility] Comment on above: Order Comment: Speci men Type: BLOOD SPECIMEN Performed By: #### 2 4321-2, , 2776-05 ####[facility]ORYCLIA [id number] [address] [place] Magnesium [Mass/Vol] 2.2 mg/dL Normal 1.7-2.3 [facility] Comment on above: Order Comment: Speci men Type: BLOOD SPECIMEN Performed By: #### 2 4321-2, 2776-05, ####[facility]ORYCLIA [id number] [place] [address] [place] Phosphate SerPl-mCncon 06-13 Phosphate [Mass/Vol] 2.2 mg/dL Low 2.7-4.8 [facility] Comment on above: Order Comment: Speci men Type: BLOOD SPECIMEN Performed By: #### 2 4321-2, , 2776-05 ####[facility]ORYCLIA [id number] [place] [address] [place] Phosphate [Mass/Vol] 1.8 mg/dL Low 2.7-4.8 [facility] Comment on above: Order Comment: Speci men Type: BLOOD SPECIMEN Performed By: #### 2 4321-2, 2777-1, ####[facility]ATORYCLIA [id number] [place] [address] [place] XR CHEST 1V FRONTALon 2021 XR CHEST 1V FRONTAL Normal [facility] ALLIED HEALTHon 06-12-2021 ALLIED HEALTH Normal [facility] BRIEF OP NOTon 06-12-2021 BRIEF OP NOT Normal [facility] Bacteria Fld Culton 06-12-19 Bacteria identified Cx Nom (Body fld) CULTURE, BODY FLD: No growth 5 days GRAM STAIN: No organisms seen Moderate Polymorphonuclear leukocytes Normal [facility] Comment on above: Performed By: #### 6 11-4 ####[facility]ORYCLIA [id number] [place] [address] [place] Basic metabolic 2000 panelon 06-12-2021 Anion gap [Moles/Vol] 6 mmol/L Low 9-18 [facility] Comment on above: Order Comment: Speci men Type: BLOOD SPECIMEN Performed By: #### 2 777-1, 22059-4, ####[facility]ORYCLIA [id number] [place] [address] [place] Calcium [Mass/Vol] 8.7 mg/dL Normal 8.5-10.2 [facility] Comment on above: Order Comment: Speci men Type: BLOOD SPECIMEN Performed By: #### 2 777-1, 93322-4, ####[facility]ORYCLIA [id number] [place] [address] [place] Chloride [Moles/Vol] 118 mmol/L High 97-105 [facility] Comment on above: Order Comment: Speci men Type: BLOOD SPECIMEN Performed By: #### 2 777-1, 95952-3, ####[facility]ORYCLIA [id number] [place], [place] [address] [place] [address] OF [facility] CO2 [Moles/Vol] 28 mmol/L Normal 22-30 [facility] Comment on above: Order Comment: Speci men Type: BLOOD SPECIMEN Performed By: #### 2 777-1, 64417-0, ####[facility]ORYCLIA [id number] [address] [place] Creatinine [Mass/Vol] 0.77 mg/dL Normal 0.73-1.22 [facility] Comment on above: Order Comment: Speci men Type: BLOOD SPECIMEN Performed By: #### 2 777-1, , ####[facility]ORYCLIA [id number] [address] GFR/1.73 sq M.predicted MDRD (S/P/Bld) [Vol rate/Area] mL/min/{1.73_m2} Normal [facility] Comment on above: [...] actual GFR. Performed By: #### 2 777-1, 65580-2, ####[facility]ORYCLIA [id number] [address] [place] [facility] Glucose [Mass/Vol] 116 mg/dL High 74-99 [facility] Comment on above: Order Comment: Speci men Type: BLOOD SPECIMEN Result Comment: The [place] [employer] (ADA) provides guidance for cutoff [...] Standards of Medical Care in Diabetes 2016, [place] [employer]. Diabetes Care. 2016.39(Suppl 1). Performed By: #### 2 777-1, , ####[facility] LABORATORYCLIA [id number] [address] [place] [facility] Potassium [Moles/Vol] 4.0 mmol/L Normal 3.7-5.1 [facility] Comment on above: Order Comment: Speci men Type: BLOOD SPECIMEN Performed By: #### 2 777-1, , ####[facility]ATORYCLIA [id number] 74 [address] Sodium [Moles/Vol] 152 mmol/L High 136-144 [facility] Comment on above: Order Comment: Speci men Type: BLOOD SPECIMEN Performed By: #### 2 777-1, , ####[facility]ORYCLIA [id number] [address] [place] [facility] Urea nitrogen [Mass/Vol] 34 mg/dL High 9-24 [facility] Comment on above: Order Comment: Speci men Type: BLOOD SPECIMEN Performed By: #### 2 777-1, , ####[facility]ORYCLIA [id number] [address] CBC panel Auto (Bld)on 06-12 Erythrocyte distribution width (RBC) [Ratio] 16.1 % High 11.5-15.0 [facility] Comment on above: Order Comment: Speci men Type: BLOOD SPECIMEN Performed By: #### 5 8410-2 ####[facility]ORYCLIA [id number] [address] Hematocrit (Bld) [Volume fraction] 32.8 % Low 39.0-51.0 [facility] Comment on above: Order Comment: Speci men Type: BLOOD SPECIMEN Performed By: #### 5 8410-2 ####[facility]ORYCLIA [id number] [address] Hemoglobin (Bld) [Mass/Vol] 9.9 g/dL Low 13.0-17.0 [facility] Comment on above: Order Comment: Speci men Type: BLOOD SPECIMEN Performed By: #### 5 8410-2 ####[facility]ORYCLIA [id number] [address] MCH (RBC) [Entitic mass] 28.4 pg Normal 26.0-34.0 [facility] Comment on above: Order Comment: Speci men Type: BLOOD SPECIMEN Performed By: #### 5 8410-2 ####[facility]ORYCLIA [id number] [address] MCHC (RBC) [Mass/Vol] 30.2 g/dL Low 30.5-36.0 [facility] Comment on above: Order Comment: Speci men Type: BLOOD SPECIMEN Performed By: #### 5 8410-2 ####[facility]ORYCLIA [id number] [address] MCV (RBC) [Entitic vol] 94.3 fL Normal 80.0-100.0 [facility] Comment on above: Order Comment: Speci men Type: BLOOD SPECIMEN Performed By: #### 5 8410-2 ####[facility]ORYCLIA [id number] [address] Nucleated RBC (Bld) [#/Vol] 10*3/uL Normal <0.01 [facility] Comment on above: Order Comment: Speci men Type: BLOOD SPECIMEN Performed By: #### 5 8410-2 ####[facility]ORYCLIA [id number] [address] Platelet mean volume (Bld) [Entitic vol] 11.2 fL Normal 9.0-12.7 [facility] Comment on above: Order Comment: Speci men Type: BLOOD SPECIMEN Performed By: #### 5 8410-2 ####[facility]ORYCLIA [id number] [address] OF [facility] Platelets (Bld) [#/Vol] 218 10*3/uL Normal 150-400 [facility] Comment on above: Order Comment: Speci men Type: BLOOD SPECIMEN Performed By: #### 5 8410-2 ####[facility]ORYCLIA [id number] [address] RBC (Bld) [#/Vol] 3.48 10*6/uL Low 4.20-6.00 [facility] Comment on above: Order Comment: Speci men Type: BLOOD SPECIMEN Performed By: #### 5 8410-2 ####[facility]ORYCLIA [id number] [address] WBC (Bld) [#/Vol] 13.33 10*3/uL High 3.70-11.00 [facility] Comment on above: Order Comment: Speci men Type: BLOOD SPECIMEN Performed By: #### 5 8410-2 ####[facility]ORYCLIA [id number] [address] CONSULT PROGon 06-12-2021 CONSULT PROG Normal [facility] CT DRN PLACE PERIT/RETROP FL BIon 06-12-[address] PERIT/RETROP FL BI Normal [facility] HISTORY PHYSICALon HISTORY PHYSICAL Normal [facility] Magnesium SerPl-mCncon 06-12 Magnesium [Mass/Vol] 2.7 mg/dL High 1.7-2.3 [facility] Comment on above: Order Comment: Speci men Type: BLOOD SPECIMEN Performed By: #### 2 777-1, 41592-3, ####[facility]ATORYCLIA [id number] [place] [address] [place] PT panel Coag (PPP)on 2021 INR Coag (PPP) [Relative time] 1.1 {INR} Normal 0.9-1.3 [facility] Comment on above: Order Comment: Speci men Type: BLOOD SPECIMEN Result Comment: Yris min K Antagonist (VKA) Therapeutic Range: INR 2 to 3 (Target INR of 2.5)Note: For patients treated with VKA drugs, such as warfarin, the [place] [employer] 2012 Guideline recommends [...] of 2.5 to 3.5 (target INR of 3).Panchitoyatt GH, et al. Chest 2012, 141:7S-47SNishimura RA, et al. [facility] 2017, 70: 252-289 Performed By: #### 3 4528-0 ####[facility]ATORYCLIA [id number] [place] [address] [place] PT Coag (PPP) [Time] 11.9 s Normal 9.7-13.0 [facility] Comment on above: Order Comment: Speci men Type: BLOOD SPECIMEN Performed By: #### 3 4528-0 ####[facility]ATORYCLIA [id number] [place] [address] [place] Phosphate SerPl-mCncon 06-12 Phosphate [Mass/Vol] 2.2 mg/dL Low 2.7-4.8 [facility] Comment on above: Order Comment: Speci men Type: BLOOD SPECIMEN Performed By: #### 2 777-1, 11602-9, ####[facility]ATORYCLIA [id number] [place] [address] [place] XR ABDOMEN 1V SUPINEon 06-12 XR ABDOMEN 1V SUPINE Normal [facility] ALLIED HEALTHon 06-11-2021 ALLIED HEALTH Normal [facility] Bacteria Bld Culton 06-11-19 22 Bacteria identified Cx Nom (Bld) CULTURE, BLOOD: No growth 5 days Normal [facility] Comment on above: Performed By: #### 6 00-7 ####[facility]ATORYCLIA [id number] [address] OF [facility] Bacteria identified Cx Nom (Bld) CULTURE, BLOOD: No growth 5 days Normal [facility] Comment on above: Performed By: #### 6 00-7 ####[facility]ATORYCLIA [id number] [address] [place] Bacteria Ur Culton 2 Bacteria identified Cx Nom (U) CULTURE, URINE: No growth (<1,000 CFU/ml) Normal [facility] Comment on above: Performed By: #### 6 30-4 ####[facility]ATORYCLIA [id number] [place] [address] [place] Basic metabolic 2000 panelon 06-11-2021 Anion gap [Moles/Vol] 9 mmol/L Normal 9-18 [facility] Comment on above: Order Comment: Speci men Type: BLOOD SPECIMEN Performed By: #### 1 9123-9, 2777-1, 07245-5 ####[facility]ATORYCLIA [id number] [address] [place] Calcium [Mass/Vol] 8.5 mg/dL Normal 8.5-10.2 [facility] Comment on above: Order Comment: Speci men Type: BLOOD SPECIMEN Performed By: #### 1 9123-9, 2777-1, 91305-9 ####[facility]ATORYCLIA [id number] [address] Chloride [Moles/Vol] 118 mmol/L High 97-105 [facility] Comment on above: Order Comment: Speci men Type: BLOOD SPECIMEN Performed By: #### 1 9123-9, 2776-05, ####[facility]ATORYCLIA [id number] [address] [place] CO2 [Moles/Vol] 27 mmol/L Normal 22-30 [facility] Comment on above: Order Comment: Speci men Type: BLOOD SPECIMEN Performed By: #### 1 9123-9, 2776-05, ####[facility]ATORYCLIA [id number] [address] STATES OF [facility] Creatinine [Mass/Vol] 0.75 mg/dL Normal 0.73-1.22 [facility] Comment on above: Order Comment: Speci men Type: BLOOD SPECIMEN Performed By: #### 1 9123-9, 2776-05, ####[facility]ORYCLIA [id number] [address] [place] GFR/1.73 sq M.predicted MDRD (S/P/Bld) [Vol rate/Area] mL/min/{1.73_m2} Normal [facility] Comment on above: [...] actual GFR. Performed By: #### 1 9123-9, 27711-04, 00339-0 ####[facility]ATORYCLIA [id number] [address] [place] Glucose [Mass/Vol] 142 mg/dL High 74-99 [facility] Comment on above: Order Comment: Speci men Type: BLOOD SPECIMEN Result Comment: The [place] [employer] (ADA) provides guidance for cutoff [...] Standards of Medical Care in Diabetes 2016, [place] [employer]. Diabetes Care. 2016.39(Suppl 1). Performed By: #### 1 9123-9, 2777-, 22722-7 ####[facility]ORYCLIA [id number] [address] STATES OF [facility] Potassium [Moles/Vol] 3.6 mmol/L Low 3.7-5.1 [facility] Comment on above: Order Comment: Speci men Type: BLOOD SPECIMEN Performed By: #### 1 9123-9, 2776, 80763-4 ####[facility]ORYCLIA [id number] [address] [place] [facility] Sodium [Moles/Vol] 154 mmol/L High 136-144 [facility] Comment on above: Order Comment: Speci men Type: BLOOD SPECIMEN Performed By: #### 1 9123-9, 2776-05, 93749-0 ####[facility]ORYCLIA [id number] [address] [place] Urea nitrogen [Mass/Vol] 31 mg/dL High 9-24 [facility] Comment on above: Order Comment: Speci men Type: BLOOD SPECIMEN Performed By: #### 1 9123-9, 27711-04, 69407-5 ####[facility]ATORYCLIA [id number] [address] [place] C diff Tox gens Stl Ql MEGAN+p robeon 06-11-2021 C. difficile toxin genes MEGAN+probe Ql (Stl) Negative Normal Negative for C. difficile toxin by PCR [facility] Comment on above: Order Comment: Speci men Type: STOOL SPECIMEN Performed By: #### 5 4067-4 ####[facility]ATORYCLIA [id number] [address] [place] CBC W Auto Differential pane l (Bld)on 06-11-2021 Basophils (Bld) [#/Vol] 0.03 10*3/uL Normal <0.11 [facility] Comment on above: Order Comment: Speci men Type: BLOOD SPECIMEN Performed By: #### 5 7021-8 ####[facility]ATORYCLIA [id number] [address] Basophils/100 WBC (Bld) 0.2 % Normal [facility] Comment on above: Order Comment: Speci men Type: BLOOD SPECIMEN Performed By: #### 5 7021-8 ####[facility]ATORYCLIA [id number] [address] Differential cell count method Nom (Bld) Auto Normal [facility] Comment on above: Order Comment: Speci men Type: BLOOD SPECIMEN Performed By: #### 5 7021-8 ####[facility]ORYCLIA [id number] [address] STATES OF [facility] Eosinophils (Bld) [#/Vol] 0.19 10*3/uL Normal <0.46 [facility] Comment on above: Order Comment: Speci men Type: BLOOD SPECIMEN Performed By: #### 5 7021-8 ####[facility]ORYCLIA [id number] [address] Eosinophils/100 WBC (Bld) 1.5 % Normal [facility] Comment on above: Order Comment: Speci men Type: BLOOD SPECIMEN Performed By: #### 5 7021-8 ####[facility]ORYCLIA [id number] [address] [place] [facility] Erythrocyte distribution width (RBC) [Ratio] 16.3 % High 11.5-15.0 [facility] Comment on above: Order Comment: Speci men Type: BLOOD SPECIMEN Performed By: #### 5 7021-8 ####[facility]ATORYCLIA [id number] [address] Hematocrit (Bld) [Volume fraction] 32.1 % Low 39.0-51.0 [facility] Comment on above: Order Comment: Speci men Type: BLOOD SPECIMEN Performed By: #### 5 7021-8 ####[facility]ORYCLIA [id number] [address] Hemoglobin (Bld) [Mass/Vol] 9.3 g/dL Low 13.0-17.0 [facility] Comment on above: Order Comment: Speci men Type: BLOOD SPECIMEN Performed By: #### 5 7021-8 ####[facility]ATORYCLIA [id number] [address] IMMATURE GRAN % 0.6 % Normal [facility] Comment on above: Order Comment: Speci men Type: BLOOD SPECIMEN Performed By: #### 5 7021-8 ####[facility]ATORYCLIA [id number] [address] IMMATURE GRAN ABS 0.08 k/uL Normal <0.10 [facility] Comment on above: Order Comment: Speci men Type: BLOOD SPECIMEN Performed By: #### 5 7021-8 ####[facility]ATORYCLIA [id number] [address] Lymphocytes (Bld) [#/Vol] 1.65 10*3/uL Normal 1.00-4.00 [facility] Comment on above: Order Comment: Speci men Type: BLOOD SPECIMEN Performed By: #### 5 7021-8 ####[facility]ATORYCLIA [id number] [address] Lymphocytes/100 WBC (Bld) 12.8 % Normal [facility] Comment on above: Order Comment: Speci men Type: BLOOD SPECIMEN Performed By: #### 5 7021-8 ####[facility]ATORYCLIA [id number] [address] MCH (RBC) [Entitic mass] 27.2 pg Normal 26.0-34.0 [facility] Comment on above: Order Comment: Speci men Type: BLOOD SPECIMEN Performed By: #### 5 7021-8 ####[facility]ORYCLIA [id number] [address] MCHC (RBC) [Mass/Vol] 29.0 g/dL Low 30.5-36.0 [facility] Comment on above: Order Comment: Speci men Type: BLOOD SPECIMEN Performed By: #### 5 7021-8 ####[facility]ATORYCLIA [id number] [address] MCV (RBC) [Entitic vol] 93.9 fL Normal 80.0-100.0 [facility] Comment on above: Order Comment: Speci men Type: BLOOD SPECIMEN Performed By: #### 5 7021-8 ####[facility]ATORYCLIA [id number] [address] Monocytes (Bld) [#/Vol] 0.68 10*3/uL Normal <0.87 [facility] Comment on above: Order Comment: Speci men Type: BLOOD SPECIMEN Performed By: #### 5 7021-8 ####[facility]ATORYCLIA [id number] [address] Monocytes/100 WBC (Bld) 5.3 % Normal [facility] Comment on above: Order Comment: Speci men Type: BLOOD SPECIMEN Performed By: #### 5 7021-8 ####[facility]ORYCLIA [id number] [address] Neutrophils (Bld) [#/Vol] 10.22 10*3/uL High 1.45-7.50 [facility] Comment on above: Order Comment: Speci men Type: BLOOD SPECIMEN Performed By: #### 5 7021-8 ####[facility]ATORYCLIA [id number] [address] Neutrophils/100 WBC (Bld) 79.6 % Normal [facility] Comment on above: Order Comment: Speci men Type: BLOOD SPECIMEN Performed By: #### 5 7021-8 ####[facility]ATORYCLIA [id number] [address] Nucleated RBC (Bld) [#/Vol] 10*3/uL Normal <0.01 [facility] Comment on above: Order Comment: Speci men Type: BLOOD SPECIMEN Performed By: #### 5 7021-8 ####[facility]ORYCLIA [id number] [address] Nucleated RBC/100 WBC (Bld) [Ratio] 0.0 /100 WBC Normal 0.0 [facility] Comment on above: Order Comment: Speci men Type: BLOOD SPECIMEN Performed By: #### 5 7021-8 ####[facility]ORYCLIA [id number] [address] Platelet mean volume (Bld) [Entitic vol] 11.1 fL Normal 9.0-12.7 [facility] Comment on above: Order Comment: Speci men Type: BLOOD SPECIMEN Performed By: #### 5 7021-8 ####[facility]ATORYCLIA [id number] [address] Platelets (Bld) [#/Vol] 188 10*3/uL Normal 150-400 [facility] Comment on above: Order Comment: Speci men Type: BLOOD SPECIMEN Performed By: #### 5 7021-8 ####[facility]ATORYCLIA [id number] [address] RBC (Bld) [#/Vol] 3.42 10*6/uL Low 4.20-6.00 [facility] Comment on above: Order Comment: Speci men Type: BLOOD SPECIMEN Performed By: #### 5 7021-8 ####[facility]ORYCLIA [id number] [address] WBC (Bld) [#/Vol] 12.85 10*3/uL High 3.70-11.00 [facility] Comment on above: Order Comment: Speci men Type: BLOOD SPECIMEN Performed By: #### 5 7021-8 ####[facility]ORYCLIA [id number] [address] CBC panel Auto (Bld)on 06-11 Erythrocyte distribution width (RBC) [Ratio] 16.2 % High 11.5-15.0 [facility] Comment on above: Order Comment: Speci men Type: BLOOD SPECIMEN Performed By: #### 5 8410-2 ####[facility]ATORYCLIA [id number] [address] Hematocrit (Bld) [Volume fraction] 34.5 % Low 39.0-51.0 [facility] Comment on above: Order Comment: Speci men Type: BLOOD SPECIMEN Performed By: #### 5 8410-2 ####[facility]ORYCLIA [id number] [address] Hemoglobin (Bld) [Mass/Vol] 10.3 g/dL Low 13.0-17.0 [facility] Comment on above: Order Comment: Speci men Type: BLOOD SPECIMEN Performed By: #### 5 8410-2 ####[facility]ORYCLIA [id number] [address] MCH (RBC) [Entitic mass] 28.1 pg Normal 26.0-34.0 [facility] Comment on above: Order Comment: Speci men Type: BLOOD SPECIMEN Performed By: #### 5 8410-2 ####[facility]ORYCLIA [id number] [address] MCHC (RBC) [Mass/Vol] 29.9 g/dL Low 30.5-36.0 [facility] Comment on above: Order Comment: Speci men Type: BLOOD SPECIMEN Performed By: #### 5 8410-2 ####[facility]ORYCLIA [id number] [address] MCV (RBC) [Entitic vol] 94.3 fL Normal 80.0-100.0 [facility] Comment on above: Order Comment: Speci men Type: BLOOD SPECIMEN Performed By: #### 5 8410-2 ####[facility]ORYCLIA [id number] [address] Nucleated RBC (Bld) [#/Vol] 10*3/uL Normal <0.01 [facility] Comment on above: Order Comment: Speci men Type: BLOOD SPECIMEN Performed By: #### 5 8410-2 ####[facility]ORYCLIA [id number] [address] Platelet mean volume (Bld) [Entitic vol] 10.9 fL Normal 9.0-12.7 [facility] Comment on above: Order Comment: Speci men Type: BLOOD SPECIMEN Performed By: #### 5 8410-2 ####[facility]ORYCLIA [id number] [address] Platelets (Bld) [#/Vol] 210 10*3/uL Normal 150-400 [facility] Comment on above: Order Comment: Speci men Type: BLOOD SPECIMEN Performed By: #### 5 8410-2 ####[facility]ORYCLIA [id number] [address] RBC (Bld) [#/Vol] 3.66 10*6/uL Low 4.20-6.00 [facility] Comment on above: Order Comment: Speci men Type: BLOOD SPECIMEN Performed By: #### 5 8410-2 ####[facility]ORYCLIA [id number] [address] WBC (Bld) [#/Vol] 13.03 10*3/uL High 3.70-11.00 [facility] Comment on above: Order Comment: Speci men Type: BLOOD SPECIMEN Performed By: #### 5 8410-2 ####[facility]ATORYCLIA [id number] [address] CONSULT PROGon 06-11-2021 CONSULT PROG Normal [facility] CONSULT PROG Normal [facility] CONSULT PROG Normal [facility] CT ABD/PEL W IVCONon 022 CT ABD/PEL W IVCON Invalid Interpretation Code [facility] Magnesium SerPl-mCncon 06-11 Magnesium [Mass/Vol] 2.7 mg/dL High 1.7-2.3 [facility] Comment on above: Order Comment: Speci men Type: BLOOD SPECIMEN Performed By: #### 1 9123-9, 7, ####[facility]ORYCLIA [id number] [address] STATES OF [facility] Phosphate SerPl-mCncon 06-11 Phosphate [Mass/Vol] 2.5 mg/dL Low 2.7-4.8 [facility] Comment on above: Order Comment: Speci men Type: BLOOD SPECIMEN Performed By: #### 1 9123-9, 2776-05, ####[facility]ORYCLIA [id number] [address] STATES OF [facility] Basic metabolic 2000 panelon 06-10-2021 Anion gap [Moles/Vol] 7 mmol/L Low 9-18 [facility] Comment on above: Order Comment: Speci men Type: BLOOD SPECIMEN Performed By: #### 2 777-1, 90424-3, , HFP ####[facility]ORYCLIA [id number] [address] STATES OF [facility] Calcium [Mass/Vol] 8.5 mg/dL Normal 8.5-10.2 [facility] Comment on above: Order Comment: Speci men Type: BLOOD SPECIMEN Performed By: #### 2 777-1, , , [facility] ####[facility]ATORYCLIA [id number] [address] STATES OF [facility] Chloride [Moles/Vol] 118 mmol/L High 97-105 [facility] Comment on above: Order Comment: Speci men Type: BLOOD SPECIMEN Performed By: #### 2 777-1, , , [facility] ####[facility]ATORYCLIA [id number] [address] CO2 [Moles/Vol] 26 mmol/L Normal 22-30 [facility] Comment on above: Order Comment: Speci men Type: BLOOD SPECIMEN Performed By: #### 2 777-1, , , [facility] ####[facility]ATORYCLIA [id number] [address] STATES OF [facility] Creatinine [Mass/Vol] 0.70 mg/dL Low 0.73-1.22 [facility] Comment on above: Order Comment: Speci men Type: BLOOD SPECIMEN Performed By: #### 2 777-1, , , [facility] ####[facility]ATORYCLIA [id number] [address] [place] GFR/1.73 sq M.predicted MDRD (S/P/Bld) [Vol rate/Area] mL/min/{1.73_m2} Normal [facility] Comment on above: [...] actual GFR. Performed By: #### 2 777-1, 93577-7, , [facility] ####[facility]ATORYCLIA [id number] [place] [address] [place] Glucose [Mass/Vol] 135 mg/dL High 74-99 [facility] Comment on above: Order Comment: Speci men Type: BLOOD SPECIMEN Result Comment: The [place] [employer] (ADA) provides guidance for cutoff [...] Standards of Medical Care in Diabetes 2016, [place] [employer]. Diabetes Care. 2016.39(Suppl 1). Performed By: #### 2 777-1, , , [facility] ####[facility]ATORYCLIA [id number] [address] [place] Potassium [Moles/Vol] 3.9 mmol/L Normal 3.7-5.1 [facility] Comment on above: Order Comment: Speci men Type: BLOOD SPECIMEN Performed By: #### 2 777-1, , , [facility] ####[facility]ATORYCLIA [id number] [place] [address] [place] Sodium [Moles/Vol] 151 mmol/L High 136-144 [facility] Comment on above: Order Comment: Speci men Type: BLOOD SPECIMEN Performed By: #### 2 777-1, 68605-9, , [facility] ####[facility]ATORYCLIA [id number] [place] [address] [place] Urea nitrogen [Mass/Vol] 27 mg/dL High 9-24 [facility] Comment on above: Order Comment: Speci men Type: BLOOD SPECIMEN Performed By: #### 2 777-1, 57867-4, 17416-9, HFP ####[facility]ATORYCLIA [id number] [address] CASE MANAGEMon 06-10-2021 CASE MANAGEM Normal [facility] CBC panel Auto (Bld)on 06-10 Erythrocyte distribution width (RBC) [Ratio] 16.2 % High 11.5-15.0 [facility] Comment on above: Order Comment: Speci men Type: BLOOD SPECIMEN Performed By: #### 5 8410-2 ####[facility]ATORYCLIA [id number] [address] Hematocrit (Bld) [Volume fraction] 34.8 % Low 39.0-51.0 [facility] Comment on above: Order Comment: Speci men Type: BLOOD SPECIMEN Performed By: #### 5 8410-2 ####[facility]ORYCLIA [id number] [address] Hemoglobin (Bld) [Mass/Vol] 10.2 g/dL Low 13.0-17.0 [facility] Comment on above: Order Comment: Speci men Type: BLOOD SPECIMEN Performed By: #### 5 8410-2 ####[facility]ATORYCLIA [id number] [address] MCH (RBC) [Entitic mass] 27.1 pg Normal 26.0-34.0 [facility] Comment on above: Order Comment: Speci men Type: BLOOD SPECIMEN Performed By: #### 5 8410-2 ####[facility]ATORYCLIA [id number] [address] MCHC (RBC) [Mass/Vol] 29.3 g/dL Low 30.5-36.0 [facility] Comment on above: Order Comment: Speci men Type: BLOOD SPECIMEN Performed By: #### 5 8410-2 ####[facility]ATORYCLIA [id number] [address] MCV (RBC) [Entitic vol] 92.6 fL Normal 80.0-100.0 [facility] Comment on above: Order Comment: Speci men Type: BLOOD SPECIMEN Performed By: #### 5 8410-2 ####[facility] LABORATORYCLIA [id number] [address] Nucleated RBC (Bld) [#/Vol] 10*3/uL Normal <0.01 [facility] Comment on above: Order Comment: Speci men Type: BLOOD SPECIMEN Performed By: #### 5 8410-2 ####[facility] LABORATORYCLIA [id number] [address] Platelet mean volume (Bld) [Entitic vol] 10.4 fL Normal 9.0-12.7 [facility] Comment on above: Order Comment: Speci men Type: BLOOD SPECIMEN Performed By: #### 5 8410-2 ####[facility] LABORATORYCLIA [id number] [address] Platelets (Bld) [#/Vol] 206 10*3/uL Normal 150-400 [facility] Comment on above: Order Comment: Speci men Type: BLOOD SPECIMEN Performed By: #### 5 8410-2 ####[facility] LABORATORYCLIA [id number] [address] RBC (Bld) [#/Vol] 3.76 10*6/uL Low 4.20-6.00 [facility] Comment on above: Order Comment: Speci men Type: BLOOD SPECIMEN Performed By: #### 5 8410-2 ####[facility] LABORATORYCLIA [id number] [address] WBC (Bld) [#/Vol] 11.36 10*3/uL High 3.70-11.00 [facility] Comment on above: Order Comment: Speci men Type: BLOOD SPECIMEN Performed By: #### 5 8410-2 ####[facility] LABORATORYCLIA [id number] [address] [place] HEPATIC FUNCTION PNLon 06-10 Albumin [Mass/Vol] 3.1 g/dL Low 3.9-4.9 [facility] Comment on above: Order Comment: Speci men Type: BLOOD SPECIMEN Performed By: #### 2 777-1, 07783-5, , HFP ####[facility] LABORATORYCLIA [id number] [place], [place] [address] [place] [address] OF [facility] ALP [Catalytic activity/Vol] 73 U/L Normal 38-113 [facility] Comment on above: Order Comment: Speci men Type: BLOOD SPECIMEN Performed By: #### 2 777-1, 50930-9, , HFP ####[facility] LABORATORYCLIA [id number] [address] ALT With P-5'-P [Catalytic activity/Vol] 64 U/L High 10-54 [facility] Comment on above: Order Comment: Speci men Type: BLOOD SPECIMEN Performed By: #### 2 777-1, 14732-3, , HFP ####[facility] LABORATORYCLIA [id number] [place], [place] [id number] [place] [address] AST With P-5'-P [Catalytic activity/Vol] 44 U/L High 14-40 [facility] Comment on above: Order Comment: Speci men Type: BLOOD SPECIMEN Performed By: #### 2 777-1, 16229-8, , HFP ####[facility] LABORATORYCLIA [id number] [place], [place] [address] [place] [address] OF [facility] Bilirubin [Mass/Vol] 0.5 mg/dL Normal 0.2-1.3 [facility] Comment on above: Order Comment: Speci men Type: BLOOD SPECIMEN Performed By: #### 2 777-1, 34297-3, , HFP ####[facility] LABORATORYCLIA [id number] [address] Bilirubin.conjugated [Mass/Vol] mg/dL Normal <0.2 [facility] Comment on above: Order Comment: Speci men Type: BLOOD SPECIMEN Performed By: #### 2 777-1, 83017-2, , [facility] ####[facility] LABORATORYCLIA [id number] [place] [address] [place] Protein [Mass/Vol] 5.7 g/dL Low 6.3-8.0 [facility] Comment on above: Order Comment: Speci men Type: BLOOD SPECIMEN Performed By: #### 2 777-1, 56618-4, , [facility] ####[facility] LABORATORYCLIA [id number] [place] [address] [facility] LEVETIRACETAMon 06-10-2021 levETIRAcetam [Mass/Vol] 57.7 ug/mL High 12.0-46.0 [facility] Comment on above: [...] developed and its performance characteristics determined by [facility]'s Isrrael Perez [facility] Pathology and Laboratory Medicine [place] [facility] It has not been cleared or approved by the FDA. [facility] is regulated under CLIA as qualified to perform high complexity testing. This test is used for clinical purposes. It should not be regarded as investigational or for research. Performed By: #### L EVET ####[facility] LAB REFERENCE LABCLIA [id number] [place] [address] [place] Magnesium SerPl-mCncon 06-10 Magnesium [Mass/Vol] 2.7 mg/dL High 1.7-2.3 [facility] Comment on above: Order Comment: Speci men Type: BLOOD SPECIMEN Performed By: #### 2 777-1, 14265-9, , [facility] ####[facility] LABORATORYCLIA [id number] [place] [address] [place] Phosphate SerPl-mCncon 06-10 Phosphate [Mass/Vol] 1.8 mg/dL Low 2.7-4.8 [facility] Comment on above: Order Comment: Speci men Type: BLOOD SPECIMEN Performed By: #### 2 777-1, 66947-8, , [facility] ####[facility] LABORATORYCLIA [id number] [place] [address] [place] ALLIED HEALTHon 06-09-2021 ALLIED HEALTH Normal [facility] ALLIED HEALTH Normal [facility] ALLIED HEALTH Normal [facility] ALLIED HEALTH Normal [facility] Basic metabolic 2000 panelon 06-09-2021 Anion gap [Moles/Vol] 8 mmol/L Low 9-18 [facility] Comment on above: Order Comment: Speci men Type: BLOOD SPECIMEN Performed By: #### 2 4321-2, 2776-05, ####[facility] LABORATORYCLIA [id number] [place] [address] [place] Calcium [Mass/Vol] 8.3 mg/dL Low 8.5-10.2 [facility] Comment on above: Order Comment: Speci men Type: BLOOD SPECIMEN Performed By: #### 2 4321-2, 2776-05, ####[facility] LABORATORYCLIA [id number] [place] [address] [place] Chloride [Moles/Vol] 116 mmol/L High 97-105 [facility] Comment on above: Order Comment: Speci men Type: BLOOD SPECIMEN Performed By: #### 2 4321-2, 2776-05, ####[facility] LABORATORYCLIA [id number] [place] [address] [place] CO2 [Moles/Vol] 27 mmol/L Normal 22-30 [facility] Comment on above: Order Comment: Speci men Type: BLOOD SPECIMEN Performed By: #### 2 4321-2, 2777-, ####[facility] LABORATORYCLIA [id number] [place] [address] [place] Creatinine [Mass/Vol] 0.70 mg/dL Low 0.73-1.22 [facility] Comment on above: Order Comment: Speci men Type: BLOOD SPECIMEN Performed By: #### 2 4321-2, 2777-, ####[facility] LABORATORYCLIA [id number] [place] [address] [place] GFR/1.73 sq M.predicted MDRD (S/P/Bld) [Vol rate/Area] mL/min/{1.73_m2} Normal [facility] Comment on above: [...] GFR. Performed By: #### 2 4321-2, 2777-, ####[facility] LABORATORYCLIA [id number] [place] [address] [place] Glucose [Mass/Vol] 123 mg/dL High 74-99 [facility] Comment on above: Order Comment: Speci men Type: BLOOD SPECIMEN Result Comment: The [place] [employer] (ADA) provides guidance for cutoff [...] Standards of Medical Care in Diabetes 2016, [place] [employer]. Diabetes Care. 2016.39(Suppl 1). Performed By: #### 2 4321-2, 7-, ####[facility] LABORATORYCLIA [id number] [address] Potassium [Moles/Vol] 3.5 mmol/L Low 3.7-5.1 [facility] Comment on above: Order Comment: Speci men Type: BLOOD SPECIMEN Performed By: #### 2 4321-2, 2776-05, ####[facility] LABORATORYCLIA [id number] [address] Sodium [Moles/Vol] 151 mmol/L High 136-144 [facility] Comment on above: Order Comment: Speci men Type: BLOOD SPECIMEN Performed By: #### 2 4321-2, 2776-05, ####[facility] LABORATORYCLIA [id number] [address] Urea nitrogen [Mass/Vol] 39 mg/dL High 9-24 [facility] Comment on above: Order Comment: Speci men Type: BLOOD SPECIMEN Performed By: #### 2 4321-2, 2776-05, ####[facility] LABORATORYCLIA [id number] [address] CBC panel Auto (Bld)on 06-09 Erythrocyte distribution width (RBC) [Ratio] 16.2 % High 11.5-15.0 [facility] Comment on above: Order Comment: Speci men Type: BLOOD SPECIMEN Performed By: #### 5 8410-2 ####[facility] LABORATORYCLIA [id number] [address] Hematocrit (Bld) [Volume fraction] 33.7 % Low 39.0-51.0 [facility] Comment on above: Order Comment: Speci men Type: BLOOD SPECIMEN Performed By: #### 5 8410-2 ####[facility] LABORATORYCLIA [id number] [address] Hemoglobin (Bld) [Mass/Vol] 10.2 g/dL Low 13.0-17.0 [facility] Comment on above: Order Comment: Speci men Type: BLOOD SPECIMEN Performed By: #### 5 8410-2 ####[facility] LABORATORYCLIA [id number] [address] MCH (RBC) [Entitic mass] 27.4 pg Normal 26.0-34.0 [facility] Comment on above: Order Comment: Speci men Type: BLOOD SPECIMEN Performed By: #### 5 8410-2 ####[facility] LABORATORYCLIA [id number] [address] MCHC (RBC) [Mass/Vol] 30.3 g/dL Low 30.5-36.0 [facility] Comment on above: Order Comment: Speci men Type: BLOOD SPECIMEN Performed By: #### 5 8410-2 ####[facility] LABORATORYCLIA [id number] [address] MCV (RBC) [Entitic vol] 90.6 fL Normal 80.0-100.0 [facility] Comment on above: Order Comment: Speci men Type: BLOOD SPECIMEN Performed By: #### 5 8410-2 ####[facility] LABORATORYCLIA [id number] [address] Nucleated RBC (Bld) [#/Vol] 10*3/uL Normal <0.01 [facility] Comment on above: Order Comment: Speci men Type: BLOOD SPECIMEN Performed By: #### 5 8410-2 ####[facility] LABORATORYCLIA [id number] [address] Platelet mean volume (Bld) [Entitic vol] 10.3 fL Normal 9.0-12.7 [facility] Comment on above: Order Comment: Speci men Type: BLOOD SPECIMEN Performed By: #### 5 8410-2 ####[facility] LABORATORYCLIA [id number] [address] Platelets (Bld) [#/Vol] 219 10*3/uL Normal 150-400 [facility] Comment on above: Order Comment: Speci men Type: BLOOD SPECIMEN Performed By: #### 5 8410-2 ####[facility] LABORATORYCLIA [id number] [address] OF [facility] RBC (Bld) [#/Vol] 3.72 10*6/uL Low 4.20-6.00 [facility] Comment on above: Order Comment: Speci men Type: BLOOD SPECIMEN Performed By: #### 5 8410-2 ####[facility] LABORATORYCLIA [id number] [address] WBC (Bld) [#/Vol] 13.02 10*3/uL High 3.70-11.00 [facility] Comment on above: Order Comment: Speci men Type: BLOOD SPECIMEN Performed By: #### 5 8410-2 ####[facility] LABORATORYCLIA [id number] [address] CONSULT PROGon 06-09-2021 CONSULT PROG Normal [facility] CONSULT PROG Normal [facility] CT BRAIN WO IVCONon 06-09-[address] BRAIN WO IVCON Normal [facility] Magnesium SerPl-mCncon 06-09 Magnesium [Mass/Vol] 2.8 mg/dL High 1.7-2.3 [facility] Comment on above: Order Comment: Speci men Type: BLOOD SPECIMEN Performed By: #### 2 4321-2, 2777-1, 75256-0 ####[facility] LABORATORYCLIA [id number] [address] [place] NURSING PROGon 06-09-2021 NURSING PROG Normal [facility] NUTRITIONon 06-09-2021 NUTRITION Normal [facility] PT EDon 06-09-2021 PT ED Normal [facility] Phosphate SerPl-mCncon 06-09 Phosphate [Mass/Vol] 2.2 mg/dL Low 2.7-4.8 [facility] Comment on above: Order Comment: Speci men Type: BLOOD SPECIMEN Performed By: #### 2 4321-2, 2777-1, 92941-9 ####[facility] LABORATORYCLIA [id number] [address] Vancomycin random [Mass/Vol] on 06-09-2021 Vancomycin [Mass/Vol] 18.9 ug/mL Normal 10.0-20.0 [facility] Comment on above: Order Comment: Speci men Type: BLOOD SPECIMEN Result Comment: Refe rence ranges and high/low indicator flags are provided as general guidelines only. The treating physician must determine appropriate target levels/dosing based on the specific clinical situation. Performed By: #### 4 091-5 ####[facility] LABORATORYCLIA [id number] [address] XR ABD 2V SUPINE W UPR/DECUB /CTLon 06-09-2021 XR ABD 2V SUPINE W UPR/DECUB/CTL Normal [facility] XR CHEST 1V FRONTALon 2021 XR CHEST 1V FRONTAL Normal [facility] XR NECK SOFT TISSUE 2V AP/LA Ton 06-09-2021 XR NECK SOFT TISSUE 2V AP/LAT Normal [facility] XR SKULL 2V AP/LATon 022 XR SKULL 2V AP/LAT Normal [facility] ALLIED HEALTHon 06-08-2021 ALLIED HEALTH Normal [facility] ANES POSTPROC EVALon 022 ANES POSTPROC EVAL Normal [facility] ANES PRE-OPon 06-08-2021 ANES PRE-OP Normal [facility] BRIEF OP NOTon 06-08-2021 BRIEF OP NOT Normal [facility] Bacteria Spec Anaerobe Culto n 06-08-2021 Bacteria identified Anaer cx Nom (Unsp spec) ORGANISM ID: 1 Rare Staphylococcus saccharolyticus Identification performed by [facility] See scanned document for susceptibility report Normal [facility] Comment on above: Performed By: #### 6 462-6, 635-3 ####[facility] LABORATORYCLIA [id number] [address] [place] Bacteria Wnd Culton 06-08-19 22 Bacteria identified Cx Nom (Wound) CULTURE, INTRAOPERATIVE HARDWARE: No growth 5 days GRAM STAIN: Not performed on specimen type Normal [facility] Comment on above: Performed By: #### 6 462-6, 635-3 ####[facility] LABORATORYCLIA [id number] [place], [place] [address] [place] [address] [place] Basic metabolic 2000 panelon 06-08-2021 Anion gap [Moles/Vol] 9 mmol/L Normal 9-18 [facility] Comment on above: Order Comment: Speci men Type: BLOOD SPECIMEN Performed By: #### 2 4321-2, 2776-05, ####[facility] LABORATORYCLIA [id number] [address] [place] Calcium [Mass/Vol] 8.7 mg/dL Normal 8.5-10.2 [facility] Comment on above: Order Comment: Speci men Type: BLOOD SPECIMEN Performed By: #### 2 4321-2, 2776-05, ####[facility] LABORATORYCLIA [id number] [place], [place] [address] [place] [address] [place] Chloride [Moles/Vol] 113 mmol/L High 97-105 [facility] Comment on above: Order Comment: Speci men Type: BLOOD SPECIMEN Performed By: #### 2 4321-2, 2776-, ####[facility] LABORATORYCLIA [id number] [place] [address] [place] CO2 [Moles/Vol] 26 mmol/L Normal 22-30 [facility] Comment on above: Order Comment: Speci men Type: BLOOD SPECIMEN Performed By: #### 2 4321-2, 2776-, ####[facility] LABORATORYCLIA [id number] [place] [address] [place] Creatinine [Mass/Vol] 0.68 mg/dL Low 0.73-1.22 [facility] Comment on above: Order Comment: Speci men Type: BLOOD SPECIMEN Performed By: #### 2 4321-2, 2777-, ####[facility] LABORATORYCLIA [id number] [place] [address] [place] GFR/1.73 sq M.predicted MDRD (S/P/Bld) [Vol rate/Area] mL/min/{1.73_m2} Normal [facility] Comment on above: Order Comment: [employer] [employer] Type: BLOOD SPECIMEN Result Comment: >60e GFR [...] GFR. Performed By: #### 2 4321-2, 2776-, ####[facility] LABORATORYCLIA [id number] [place] [address] [place] Glucose [Mass/Vol] 146 mg/dL High 74-99 [facility] Comment on above: Order Comment: [facility] [employer] [facility] [employer] Type: BLOOD SPECIMEN Result Comment: The [place] [employer] (ADA) provides guidance for cutoff [...] Standards of Medical Care in Diabetes 2016, [place] [employer]. Diabetes Care. 2016.39(Suppl 1). Performed By: #### 2 4321-2, 2776-, ####[facility] LABORATORYCLIA [id number] [place], [place] [address] [place] [address] STATES OF [facility] Potassium [Moles/Vol] 3.6 mmol/L Low 3.7-5.1 [facility] Comment on above: Order Comment: Speci men Type: BLOOD SPECIMEN Performed By: #### 2 4321-2, 2776-05, ####[facility] LABORATORYCLIA [id number] [address] Sodium [Moles/Vol] 148 mmol/L High 136-144 [facility] Comment on above: Order Comment: Speci men Type: BLOOD SPECIMEN Performed By: #### 2 4321-2, 2776-05, ####[facility] LABORATORYCLIA [id number] [address] Urea nitrogen [Mass/Vol] 36 mg/dL High 9-24 [facility] Comment on above: Order Comment: Speci men Type: BLOOD SPECIMEN Performed By: #### 2 4321-2, 2776-05, ####[facility] LABORATORYCLIA [id number] [address] CASE MANAGEMon 06-08-2021 CASE MANAGEM Normal [facility] CBC panel Auto (Bld)on 06-08 Erythrocyte distribution width (RBC) [Ratio] 16.0 % High 11.5-15.0 [facility] Comment on above: Order Comment: Speci men Type: BLOOD SPECIMEN Performed By: #### 5 8410-2 ####[facility] LABORATORYCLIA [id number] [address] Hematocrit (Bld) [Volume fraction] 38.4 % Low 39.0-51.0 [facility] Comment on above: Order Comment: Speci men Type: BLOOD SPECIMEN Performed By: #### 5 8410-2 ####[facility] LABORATORYCLIA [id number] [address] Hemoglobin (Bld) [Mass/Vol] 12.1 g/dL Low 13.0-17.0 [facility] Comment on above: Order Comment: Speci men Type: BLOOD SPECIMEN Performed By: #### 5 8410-2 ####[facility] LABORATORYCLIA [id number] [address] MCH (RBC) [Entitic mass] 28.3 pg Normal 26.0-34.0 [facility] Comment on above: Order Comment: Speci men Type: BLOOD SPECIMEN Performed By: #### 5 8410-2 ####[facility] LABORATORYCLIA [id number] [address] MCHC (RBC) [Mass/Vol] 31.5 g/dL Normal 30.5-36.0 [facility] Comment on above: Order Comment: Speci men Type: BLOOD SPECIMEN Performed By: #### 5 8410-2 ####[facility] LABORATORYCLIA [id number] [address] MCV (RBC) [Entitic vol] 89.9 fL Normal 80.0-100.0 [facility] Comment on above: Order Comment: Speci men Type: BLOOD SPECIMEN Performed By: #### 5 8410-2 ####[facility] LABORATORYCLIA [id number] [address] Nucleated RBC (Bld) [#/Vol] 10*3/uL Normal <0.01 [facility] Comment on above: Order Comment: Speci men Type: BLOOD SPECIMEN Performed By: #### 5 8410-2 ####[facility] LABORATORYCLIA [id number] [address] Platelet mean volume (Bld) [Entitic vol] 10.3 fL Normal 9.0-12.7 [facility] Comment on above: Order Comment: Speci men Type: BLOOD SPECIMEN Performed By: #### 5 8410-2 ####[facility] LABORATORYCLIA [id number] [address] Platelets (Bld) [#/Vol] 236 10*3/uL Normal 150-400 [facility] Comment on above: Order Comment: Speci men Type: BLOOD SPECIMEN Performed By: #### 5 8410-2 ####[facility] LABORATORYCLIA [id number] [address] RBC (Bld) [#/Vol] 4.27 10*6/uL Normal 4.20-6.00 [facility] Comment on above: Order Comment: Speci men Type: BLOOD SPECIMEN Performed By: #### 5 8410-2 ####[facility] LABORATORYCLIA [id number] [address] WBC (Bld) [#/Vol] 11.06 10*3/uL High 3.70-11.00 [facility] Comment on above: Order Comment: Speci men Type: BLOOD SPECIMEN Performed By: #### 5 8410-2 ####[facility] LABORATORYCLIA [id number] [address] CONSULT PROGon 06-08-2021 CONSULT PROG Normal [facility] CT BRAIN WO IVCONon 06-08-[address] BRAIN WO IVCON Normal [facility] Magnesium SerPl-mCncon 06-08 Magnesium [Mass/Vol] 2.8 mg/dL High 1.7-2.3 [facility] Comment on above: Order Comment: Speci men Type: BLOOD SPECIMEN Performed By: #### 2 4321-2, 2777-1, 77250-9 ####[facility] LABORATORYCLIA [id number] [address] Microorganism Spec Culton Microorganism identified Cx Nom (Unsp spec) CULTURE, FUNGAL: No Fungus isolated after 28 days FUNGAL SMEAR: No fungus seen Normal [facility] Comment on above: Performed By: #### 1 1475-1 ####[facility] LABORATORYCLIA [id number] [place] [id number] [place] NURSING PROGon 06-08-2021 NURSING PROG Normal [facility] OPERATIVE NOon 06-08-2021 OPERATIVE NO Normal [facility] OPERATIVE NO Normal [facility] PT panel Coag (PPP)on 2021 INR Coag (PPP) [Relative time] 1.1 {INR} Normal 0.9-1.3 [facility] Comment on above: Order Comment: Speci men Type: BLOOD SPECIMEN Result Comment: Yris min K Antagonist (VKA) Therapeutic Range: INR 2 to 3 (Target INR of 2.5)Note: For patients treated with VKA drugs, such as warfarin, the [place] [employer] 2012 Guideline recommends [...] al. Chest 2012, 141:7S-47SAlba RA, et al. [facility] 2017, 70: 252-289 Performed By: #### 3 4528-0, 76164-6 ####[facility] LABORATORYCLIA [id number] [place] [address] [place] PT Coag (PPP) [Time] 11.9 s Normal 9.7-13.0 [facility] Comment on above: Order Comment: Speci men Type: BLOOD SPECIMEN Performed By: #### 3 4528-0, 59666-6 ####[facility] LABORATORYCLIA [id number] [place] [address] [place] Phosphate SerPl-mCncon 06-08 Phosphate [Mass/Vol] 2.3 mg/dL Low 2.7-4.8 [facility] Comment on above: Order Comment: Speci men Type: BLOOD SPECIMEN Performed By: #### 2 4321-2, 2777-1, 72068-1 ####[facility] LABORATORYCLIA [id number] [address] aPTT PPPon 06-08-2021 aPTT Coag (PPP) [Time] 24.2 s Normal 23.0-32.[address] [facility] Comment on above: Order Comment: Speci men Type: BLOOD SPECIMEN Performed By: #### 3 4528-0, 67727-7 ####[facility] LABORATORYCLIA [id number] [address] ALLIED HEALTHon 06-07-2021 ALLIED HEALTH Normal [facility] ALLIED HEALTH Normal [facility] ALLIED HEALTH Normal [facility] Bacteria CSF Culton 06-07-19 22 Bacteria identified Cx Nom (CSF) CULTURE, CSF: No growth 14 days GRAM STAIN: No organisms seen Rare Mononuclear cells Rare Polymorphonuclear leukocytes Gram stain performed on cytospun specimen. Normal [facility] Comment on above: Performed By: #### 6 06-4 ####[facility] LABORATORYCLIA [id number] [address] Basic metabolic 2000 panelon 06-07-2021 Anion gap [Moles/Vol] 9 mmol/L Normal 9-18 [facility] Comment on above: Order Comment: Speci men Type: BLOOD SPECIMEN Performed By: #### 1 9123-9, 2777-1, 90985-3 ####[facility] LABORATORYCLIA [id number] [address] STATES [facility] Calcium [Mass/Vol] 8.8 mg/dL Normal 8.5-10.2 [facility] Comment on above: Order Comment: Speci men Type: BLOOD SPECIMEN Performed By: #### 1 9123-9, 2777-1, 27764-7 ####[facility] LABORATORYCLIA [id number] [place] [address] [place] Chloride [Moles/Vol] 111 mmol/L High 97-105 [facility] Comment on above: Order Comment: Speci men Type: BLOOD SPECIMEN Performed By: #### 1 9123-9, 2776-05, ####[facility] LABORATORYCLIA [id number] [address] [place] CO2 [Moles/Vol] 27 mmol/L Normal 22-30 [facility] Comment on above: Order Comment: Speci men Type: BLOOD SPECIMEN Performed By: #### 1 9123-9, 2776-05, ####[facility] LABORATORYCLIA [id number] [address] [place] Creatinine [Mass/Vol] 0.66 mg/dL Low 0.73-1.22 [facility] Comment on above: Order Comment: Speci men Type: BLOOD SPECIMEN Performed By: #### 1 9123-9, 2776-05, ####[facility] LABORATORYCLIA [id number] [address] [place] GFR/1.73 sq M.predicted MDRD (S/P/Bld) [Vol rate/Area] mL/min/{1.73_m2} Normal [facility] Comment on above: [...] actual GFR. Performed By: #### 1 9123-9, 27711-04, 05306-2 ####[facility] LABORATORYCLIA [id number] [place] [address] [place] Glucose [Mass/Vol] 123 mg/dL High 74-99 [facility] Comment on above: Order Comment: Speci men Type: BLOOD SPECIMEN Result Comment: The [place] Diabetes Association (ADA) provides guidance for cutoff [...] Standards of Medical Care in Diabetes 2016, [place] [employer]. Diabetes Care. 2016.39(Suppl 1). Performed By: #### 1 9123-9, 2777-, 63446-4 ####[facility] LABORATORYCLIA [id number] [address] [place] Potassium [Moles/Vol] 3.6 mmol/L Low 3.7-5.1 [facility] Comment on above: Order Comment: Speci men Type: BLOOD SPECIMEN Performed By: #### 1 9123-9, 2776-05, 88900-5 ####[facility] LABORATORYCLIA [id number] [address] STATES [facility] Sodium [Moles/Vol] 147 mmol/L High 136-144 [facility] Comment on above: Order Comment: Speci men Type: BLOOD SPECIMEN Performed By: #### 1 9123-9, 27711-04, 24700-8 ####[facility] LABORATORYCLIA [id number] [address] STATES [facility] Urea nitrogen [Mass/Vol] 30 mg/dL High 9-24 [facility] Comment on above: Order Comment: Speci men Type: BLOOD SPECIMEN Performed By: #### 1 9123-9, 2777-, 29514-8 ####[facility] LABORATORYCLIA [id number] [place] [address] [place] CBC W Auto Differential pane l (Bld)on 06-07-2021 Basophils (Bld) [#/Vol] 10*3/uL Normal <0.11 [facility] Comment on above: Order Comment: Speci men Type: BLOOD SPECIMEN Performed By: #### 5 7021-8 ####[facility] LABORATORYCLIA [id number] [address] Basophils/100 WBC (Bld) 0.2 % Normal [facility] Comment on above: Order Comment: Speci men Type: BLOOD SPECIMEN Performed By: #### 5 7021-8 ####[facility] LABORATORYCLIA [id number] [address] Differential cell count method Nom (Bld) Auto Normal [facility] Comment on above: Order Comment: Speci men Type: BLOOD SPECIMEN Performed By: #### 5 7021-8 ####[facility] LABORATORYCLIA [id number] [address] Eosinophils (Bld) [#/Vol] 0.06 10*3/uL Normal <0.46 [facility] Comment on above: Order Comment: Speci men Type: BLOOD SPECIMEN Performed By: #### 5 7021-8 ####[facility] LABORATORYCLIA [id number] [address] Eosinophils/100 WBC (Bld) 0.6 % Normal [facility] Comment on above: Order Comment: Speci men Type: BLOOD SPECIMEN Performed By: #### 5 7021-8 ####[facility] LABORATORYCLIA [id number] [address] Erythrocyte distribution width (RBC) [Ratio] 15.8 % High 11.5-15.0 [facility] Comment on above: Order Comment: Speci men Type: BLOOD SPECIMEN Performed By: #### 5 7021-8 ####[facility] LABORATORYCLIA [id number] [address] Hematocrit (Bld) [Volume fraction] 40.4 % Normal 39.0-51.0 [facility] Comment on above: Order Comment: Speci men Type: BLOOD SPECIMEN Performed By: #### 5 7021-8 ####[facility] LABORATORYCLIA [id number] [address] Hemoglobin (Bld) [Mass/Vol] 12.4 g/dL Low 13.0-17.0 [facility] Comment on above: Order Comment: Speci men Type: BLOOD SPECIMEN Performed By: #### 5 7021-8 ####[facility] LABORATORYCLIA [id number] [address] IMMATURE GRAN % 0.7 % Normal [facility] Comment on above: Order Comment: Speci men Type: BLOOD SPECIMEN Performed By: #### 5 7021-8 ####[facility] LABORATORYCLIA [id number] [address] IMMATURE GRAN ABS 0.07 k/uL Normal <0.10 [facility] Comment on above: Order Comment: Speci men Type: BLOOD SPECIMEN Performed By: #### 5 7021-8 ####[facility] LABORATORYCLIA [id number] [address] Lymphocytes (Bld) [#/Vol] 1.43 10*3/uL Normal 1.00-4.00 [facility] Comment on above: Order Comment: Speci men Type: BLOOD SPECIMEN Performed By: #### 5 7021-8 ####[facility] LABORATORYCLIA [id number] [address] Lymphocytes/100 WBC (Bld) 14.1 % Normal [facility] Comment on above: Order Comment: Speci men Type: BLOOD SPECIMEN Performed By: #### 5 7021-8 ####[facility] LABORATORYCLIA [id number] [address] MCH (RBC) [Entitic mass] 27.6 pg Normal 26.0-34.0 [facility] Comment on above: Order Comment: Speci men Type: BLOOD SPECIMEN Performed By: #### 5 7021-8 ####[facility] LABORATORYCLIA [id number] [address] MCHC (RBC) [Mass/Vol] 30.7 g/dL Normal 30.5-36.0 [facility] Comment on above: Order Comment: Speci men Type: BLOOD SPECIMEN Performed By: #### 5 7021-8 ####[facility] LABORATORYCLIA [id number] [address] MCV (RBC) [Entitic vol] 89.8 fL Normal 80.0-100.0 [facility] Comment on above: Order Comment: Speci men Type: BLOOD SPECIMEN Performed By: #### 5 7021-8 ####[facility] LABORATORYCLIA [id number] [address] Monocytes (Bld) [#/Vol] 0.82 10*3/uL Normal <0.87 [facility] Comment on above: Order Comment: Speci men Type: BLOOD SPECIMEN Performed By: #### 5 7021-8 ####[facility] LABORATORYCLIA [id number] [address] Monocytes/100 WBC (Bld) 8.1 % Normal [facility] Comment on above: Order Comment: Speci men Type: BLOOD SPECIMEN Performed By: #### 5 7021-8 ####[facility] LABORATORYCLIA [id number] [address] Neutrophils (Bld) [#/Vol] 7.74 10*3/uL High 1.45-7.50 [facility] Comment on above: Order Comment: Speci men Type: BLOOD SPECIMEN Performed By: #### 5 7021-8 ####[facility] LABORATORYCLIA [id number] [address] Neutrophils/100 WBC (Bld) 76.3 % Normal [facility] Comment on above: Order Comment: Speci men Type: BLOOD SPECIMEN Performed By: #### 5 7021-8 ####[facility] LABORATORYCLIA [id number] [address] Nucleated RBC (Bld) [#/Vol] 10*3/uL Normal <0.01 [facility] Comment on above: Order Comment: Speci men Type: BLOOD SPECIMEN Performed By: #### 5 7021-8 ####[facility] LABORATORYCLIA [id number] [address] Nucleated RBC/100 WBC (Bld) [Ratio] 0.0 /100 WBC Normal 0.0 [facility] Comment on above: Order Comment: Speci men Type: BLOOD SPECIMEN Performed By: #### 5 7021-8 ####[facility] LABORATORYCLIA [id number] [address] Platelet mean volume (Bld) [Entitic vol] 10.4 fL Normal 9.0-12.7 [facility] Comment on above: Order Comment: Speci men Type: BLOOD SPECIMEN Performed By: #### 5 7021-8 ####[facility] LABORATORYCLIA [id number] [address] OF [facility] Platelets (Bld) [#/Vol] 236 10*3/uL Normal 150-400 [facility] Comment on above: Order Comment: Speci men Type: BLOOD SPECIMEN Performed By: #### 5 7021-8 ####[facility] LABORATORYCLIA [id number] [address] RBC (Bld) [#/Vol] 4.50 10*6/uL Normal 4.20-6.00 [facility] Comment on above: Order Comment: Speci men Type: BLOOD SPECIMEN Performed By: #### 5 7021-8 ####[facility] LABORATORYCLIA [id number] [address] WBC (Bld) [#/Vol] 10.14 10*3/uL Normal 3.70-11.00 [facility] Comment on above: Order Comment: Speci men Type: BLOOD SPECIMEN Performed By: #### 5 7021-8 ####[facility] LABORATORYCLIA [id number] [address] CBC panel Auto (Bld)on 06-07 Erythrocyte distribution width (RBC) [Ratio] 15.8 % High 11.5-15.0 [facility] Comment on above: Order Comment: Speci men Type: BLOOD SPECIMEN Performed By: #### 5 8410-2 ####[facility] LABORATORYCLIA [id number] [address] Hematocrit (Bld) [Volume fraction] 40.0 % Normal 39.0-51.0 [facility] Comment on above: Order Comment: Speci men Type: BLOOD SPECIMEN Performed By: #### 5 8410-2 ####[facility] LABORATORYCLIA [id number] [address] Hemoglobin (Bld) [Mass/Vol] 12.3 g/dL Low 13.0-17.0 [facility] Comment on above: Order Comment: Speci men Type: BLOOD SPECIMEN Performed By: #### 5 8410-2 ####[facility] LABORATORYCLIA [id number] [address] MCH (RBC) [Entitic mass] 27.3 pg Normal 26.0-34.0 [facility] Comment on above: Order Comment: Speci men Type: BLOOD SPECIMEN Performed By: #### 5 8410-2 ####[facility] LABORATORYCLIA [id number] [address] MCHC (RBC) [Mass/Vol] 30.8 g/dL Normal 30.5-36.0 [facility] Comment on above: Order Comment: Speci men Type: BLOOD SPECIMEN Performed By: #### 5 8410-2 ####[facility] LABORATORYCLIA [id number] [address] MCV (RBC) [Entitic vol] 88.7 fL Normal 80.0-100.0 [facility] Comment on above: Order Comment: Speci men Type: BLOOD SPECIMEN Performed By: #### 5 8410-2 ####[facility] LABORATORYCLIA [id number] [address] Nucleated RBC (Bld) [#/Vol] 10*3/uL Normal <0.01 [facility] Comment on above: Order Comment: Speci men Type: BLOOD SPECIMEN Performed By: #### 5 8410-2 ####[facility] LABORATORYCLIA [id number] [address] Platelet mean volume (Bld) [Entitic vol] 10.0 fL Normal 9.0-12.7 [facility] Comment on above: Order Comment: Speci men Type: BLOOD SPECIMEN Performed By: #### 5 8410-2 ####[facility] LABORATORYCLIA [id number] [address] Platelets (Bld) [#/Vol] 234 10*3/uL Normal 150-400 [facility] Comment on above: Order Comment: Speci men Type: BLOOD SPECIMEN Performed By: #### 5 8410-2 ####[facility] LABORATORYCLIA [id number] [address] RBC (Bld) [#/Vol] 4.51 10*6/uL Normal 4.20-6.00 [facility] Comment on above: Order Comment: Speci men Type: BLOOD SPECIMEN Performed By: #### 5 8410-2 ####[facility] LABORATORYCLIA [id number] [address] WBC (Bld) [#/Vol] 11.47 10*3/uL High 3.70-11.00 [facility] Comment on above: Order Comment: Speci men Type: BLOOD SPECIMEN Performed By: #### 5 8410-2 ####[facility] LABORATORYCLIA [id number] [address] CONSULT PROGon 06-07-2021 CONSULT PROG Normal [facility] CONSULT PROG Normal [facility] CSF MANUAL DIFFon 06-07-2021 DIF TTL, CSF 92 cells counted Normal [facility] Comment on above: Order Comment: Speci men Type: CEREBROSPINAL FLUID Performed By: #### 3 4563-7, [id number], [id number] ####[facility] LABORATORYCLIA [id number] [place], [place] [address] [place] [address] OF [facility] EOSIN%, CSF 1 % Normal [facility] Comment on above: Order Comment: Speci men Type: CEREBROSPINAL FLUID Performed By: #### 3 4563-7, [id number], [id number] ####[facility] LABORATORYCLIA [id number] [address] [place] LYMPH%, CSF 21 % Low 50-90 [facility] Comment on above: Order Comment: Speci men Type: CEREBROSPINAL FLUID Performed By: #### 3 4563-7, [id number], [id number] ####[facility] LABORATORYCLIA [id number] [address] [place] MACRO%, CSF 27 % High <1 [facility] Comment on above: Order Comment: Speci men Type: CEREBROSPINAL FLUID Result Comment: Tati ected result: Previously reported as 22 % on 06/07/2021 at 1:49 PM EST. Performed By: #### 3 4563-7, [id number], [id number] ####[facility] LABORATORYCLIA [id number] [place], [place] [address] [place] [address] [place] MONO%, CSF 36 % Normal 10-50 [facility] Comment on above: Order Comment: Speci men Type: CEREBROSPINAL FLUID Performed By: #### 3 4563-7, [id number], [id number] ####[facility] LABORATORYCLIA [id number] [address] [place] NEUT%, CSF 11 % High 0-3 [facility] Comment on above: Order Comment: Speci men Type: CEREBROSPINAL FLUID Performed By: #### 3 4563-7, [id number], [id number] ####[facility] LABORATORYCLIA [id number] [address] OTHER CL%, CSF 4 % Normal [facility] Comment on above: Order Comment: Speci men Type: CEREBROSPINAL FLUID Result Comment: Path review to follow.Corrected result: Previously reported as 10 % on 06/07/2021 at 1:49 PM EST. Performed By: #### 3 4563-7, [id number], [id number] ####[facility] LABORATORYCLIA [id number] [address] CSF PATHOLOGIST INTERP (LAB REFLEX ORDER-NO BILL)on 06-07-2021 CSF STAFF REVIEW Negative for maligna nt cells. Rare immature myeloid or ventricular lining cells. Normal [facility] Comment on above: Order Comment: Speci men Type: CEREBROSPINAL FLUID Performed By: #### 3 4563-7, [id number], [id number] ####[facility] LABORATORYCLIA [id number] [address] Pathologist name Reviewed by Eloise rebolledo MD Normal [facility] Comment on above: Order Comment: Speci men Type: CEREBROSPINAL FLUID Performed By: #### 3 4563-7, [id number], [id number] ####[facility] LABORATORYCLIA [id number] [address] BRAIN WO IVCONon 06-07-19 CT BRAIN WO IVCON Normal [facility] CT BRAIN WO IVCON Normal [facility] Cell count panel (CSF)on Clarity (CSF) Clear Normal Clear [facility] Comment on above: Order Comment: Speci men Type: CEREBROSPINAL FLUID Performed By: #### 3 4563-7, [id number], [id number] ####[facility] LABORATORYCLIA [id number] [address] Clarity (Unsp spec) Not Indicated Normal Clear [facility] Comment on above: Order Comment: Speci men Type: CEREBROSPINAL FLUID Performed By: #### 3 4563-7, [id number], [id number] ####[facility] LABORATORYCLIA [id number] [address] Color (CSF) Colorless Normal Colorless [facility] Comment on above: Order Comment: Speci men Type: CEREBROSPINAL FLUID Performed By: #### 3 4563-7, [id number], [id number] ####[facility] LABORATORYCLIA [id number] [address] Color (Spun CSF) Not Indicated Normal Colorless [facility] Comment on above: Order Comment: Speci men Type: CEREBROSPINAL FLUID Performed By: #### 3 4563-7, [id number], [id number] ####[facility] LABORATORYCLIA [id number] [address] CSF TUBE NUMBER Sterile Container Normal [facility] Comment on above: Order Comment: Speci men Type: CEREBROSPINAL FLUID Performed By: #### 3 4563-7, [id number], LIK5977 ####[facility] LABORATORYCLIA [id number] [address] RBC Manual cnt (CSF) [#/Vol] 42 cells/uL High 0-5 [facility] Comment on above: Order Comment: Speci men Type: CEREBROSPINAL FLUID Performed By: #### 3 4563-7, [id number], [id number] ####[facility] LABORATORYCLIA [id number] [address] WBC Manual cnt (CSF) [#/Vol] 1 cells/uL Normal 0-5 [facility] Comment on above: Order Comment: Speci men Type: CEREBROSPINAL FLUID Performed By: #### 3 4563-7, [id number], [id number] ####[facility] LABORATORYCLIA [id number] [address] [place] Glucose CSF-mCncon 2 Glucose (CSF) [Mass/Vol] 92 mg/dL High 40-70 [facility] Comment on above: Order Comment: Speci men Type: CEREBROSPINAL FLUID Result Comment: Lumb ar CSF glucose values of healthy patients are approximately 60% of the plasma values and must always be compared with a concurrently measured plasma value for adequate clinical interpretation.References: 1. Glucose HK (GLUC3) [package insert V 12.0 Citizen Of [place]]. [employer], [place], [place]. September 2015. 2. Michelle Moore, Loki, H. (2015). Chapter 7: Glucose and Lactate. Marianela Rothman.(eds.), Cerebrospinal Fluid in Clinical Neurology. [place]: [employer]. Performed By: #### 2 880-3, 2342-4 ####[facility] LABORATORYCLIA [id number] [address] OF [facility] Lactate (Bld) [Moles/Vol]on 06-07-2021 Lactate [Moles/Vol] 0.9 mmol/L Normal 0.5-2.2 [facility] Comment on above: Order Comment: Speci men Type: BLOOD SPECIMEN Performed By: #### 3 2693-4 ####[facility] LABORATORYCLIA [id number] [address] [place] Lipase SerPl-cCncon 06-07-19 22 Lipase [Catalytic activity/Vol] 35 U/L Normal 16-61 [facility] Comment on above: Order Comment: Speci men Type: BLOOD SPECIMEN Performed By: #### 3 040-3, PROCAL ####[facility] LABORATORYCLIA [id number] [address] STATES OF [facility] Magnesium SerPl-mCncon 06-07 Magnesium [Mass/Vol] 2.7 mg/dL High 1.7-2.3 [facility] Comment on above: Order Comment: Speci men Type: BLOOD SPECIMEN Performed By: #### 1 9123-9, 2777-1, 45019-7 ####[facility] LABORATORYCLIA [id number] [address] PROCALCITONIN (LAB)on 2021 Procalcitonin [Mass/Vol] 0.13 ng/mL High <0.09 [facility] Comment on above: Order Comment: Speci men Type: BLOOD SPECIMEN Result Comment: For a guided interpretation of test results, please visit the Change in Procalcitonin Calculator, [email or web address]. Performed By: #### 3 040-3, PROCAL ####[facility] LABORATORYCLIA [id number] [address] Phosphate SerPl-mCncon 06-07 Phosphate [Mass/Vol] 1.9 mg/dL Low 2.7-4.8 [facility] Comment on above: Order Comment: Speci men Type: BLOOD SPECIMEN Performed By: #### 1 9123-9, 2777-1, 58851-5 ####[facility] LABORATORYCLIA [id number] [address] Prot CSF-mCncon 06-07-2021 Protein (CSF) [Mass/Vol] 33 mg/dL Normal 15-45 [facility] Comment on above: Order Comment: Speci men Type: CEREBROSPINAL FLUID Performed By: #### 2 880-3, 2342-4 ####[facility] LABORATORYCLIA [id number] [address] SARS-CoV-2 RNA Resp Ql MEGAN+p robeon 06-07-2021 SARS-CoV-2 (COVID-19) RNA MEGAN+probe Ql (Resp) COVID 19 RESULT: SARS-CoV-2 (Agent of COVID-19) Not Detected by PCR. This test has been authorized by FDA under an Emergency Use Authorization (EUA). Normal [facility] Comment on above: Performed By: #### 9 4500-6 ####[facility] LABORATORYCLIA [id number] [address] TYPE AND SCREENon 06-07-2021 ABO O Normal [facility] Comment on above: Order Comment: Speci men Type: BLOOD SPECIMEN Performed By: #### T SCR ####[facility] BLOOD BANKCLIA [id number] [address] HISTORICAL AB SCR STATUS Negative Normal [facility] Comment on above: Order Comment: Speci men Type: BLOOD SPECIMEN Performed By: #### T SCR ####[facility] BLOOD BANKCLIA [id number] [place] [address] [facility] Rh Nom (Bld) Positive Normal [facility] Comment on above: Order Comment: Speci men Type: BLOOD SPECIMEN Performed By: #### T SCR ####[facility] BLOOD BANKCLIA [id number] [place] [address] [facility] TYPE AND SCREEN EXPIRATION 06/10/2021 23:59 Normal [facility] Comment on above: Order Comment: Speci men Type: BLOOD SPECIMEN Performed By: #### T SCR ####[facility] BLOOD BANKCLIA [id number] [place] [address] [facility] [place] Vancomycin random [Mass/Vol] on 06-07-2021 Vancomycin [Mass/Vol] 16.5 ug/mL Normal 10.0-20.0 [facility] Comment on above: Order Comment: Speci men Type: BLOOD SPECIMEN Result Comment: Refe rence ranges and high/low indicator flags are provided as general guidelines only. The treating physician must determine appropriate target levels/dosing based on the specific clinical situation. Performed By: #### 4 091-5 ####[facility] LABORATORYCLIA [id number] [address] OF [facility] XR CHEST 1V FRONTAL PORTon 0 06-07-2021 XR CHEST 1V FRONTAL PORT Normal [facility] Basic metabolic 2000 panelon 06-06-2021 Anion gap [Moles/Vol] 11 mmol/L Normal 9-18 [facility] Comment on above: Order Comment: Speci men Type: BLOOD SPECIMEN Performed By: #### 2 4321-2, , 2776-05 ####[facility] LABORATORYCLIA [id number] [address] STATES OF [facility] Calcium [Mass/Vol] 8.6 mg/dL Normal 8.5-10.2 [facility] Comment on above: Order Comment: Speci men Type: BLOOD SPECIMEN Performed By: #### 2 4321-2, , 2776-05 ####[facility] LABORATORYCLIA [id number] [place], [place] [id number] [place] [address] STATES OF [facility] Chloride [Moles/Vol] 108 mmol/L High 97-105 [facility] Comment on above: Order Comment: Speci men Type: BLOOD SPECIMEN Performed By: #### 2 4321-2, , 2776-05 ####[facility] LABORATORYCLIA [id number] [place] [id number] [facility] CO2 [Moles/Vol] 25 mmol/L Normal 22-30 [facility] Comment on above: Order Comment: Speci men Type: BLOOD SPECIMEN Performed By: #### 2 4321-2, , 2776-05 ####[facility] LABORATORYCLIA [id number] [address] Creatinine [Mass/Vol] 0.76 mg/dL Normal 0.73-1.22 [facility] Comment on above: Order Comment: Speci men Type: BLOOD SPECIMEN Performed By: #### 2 4321-2, , 2776-05 ####[facility] LABORATORYCLIA [id number] [address] GFR/1.73 sq M.predicted MDRD (S/P/Bld) [Vol rate/Area] mL/min/{1.73_m2} Normal [facility] Comment on above: [...] Performed By: #### 2 4321-2, , 2776-05 ####[facility] LABORATORYCLIA [id number] [place] [address] [place] Glucose [Mass/Vol] 116 mg/dL High 74-99 [facility] Comment on above: Order Comment: Speci men Type: BLOOD SPECIMEN Result Comment: The [place] [employer] (ADA) provides guidance for cutoff [...] Standards of Medical Care in Diabetes 2016, [place] [employer]. Diabetes Care. 2016.39(Suppl 1). Performed By: #### 2 4321-2, , 2776-05 ####[facility] LABORATORYCLIA [id number] [address] [place] Potassium [Moles/Vol] 3.5 mmol/L Low 3.7-5.1 [facility] Comment on above: Order Comment: Speci men Type: BLOOD SPECIMEN Performed By: #### 2 1-2, , 2776-05 ####[facility] LABORATORYCLIA [id number] [address] STATES OF [facility] Sodium [Moles/Vol] 144 mmol/L Normal 136-144 [facility] Comment on above: Order Comment: Speci men Type: BLOOD SPECIMEN Performed By: #### 2 4321-2, , 2776-05 ####[facility] LABORATORYCLIA [id number] [place] [address] [place] Urea nitrogen [Mass/Vol] 31 mg/dL High 9-24 [facility] Comment on above: Order Comment: Speci men Type: BLOOD SPECIMEN Performed By: #### 2 4321-2, , 2776-05 ####[facility] LABORATORYCLIA [id number] [address] CASE MANAGEMon 06-06-2021 CASE MANAGEM Normal [facility] CBC panel Auto (Bld)on 06-06 Erythrocyte distribution width (RBC) [Ratio] 15.8 % High 11.5-15.0 [facility] Comment on above: Order Comment: Speci men Type: BLOOD SPECIMEN Performed By: #### 5 8410-2 ####[facility]ATORYCLIA [id number] [address] Hematocrit (Bld) [Volume fraction] 39.5 % Normal 39.0-51.0 [facility] Comment on above: Order Comment: Speci men Type: BLOOD SPECIMEN Performed By: #### 5 8410-2 ####[facility]ATORYCLIA [id number] [address] Hemoglobin (Bld) [Mass/Vol] 12.2 g/dL Low 13.0-17.0 [facility] Comment on above: Order Comment: Speci men Type: BLOOD SPECIMEN Performed By: #### 5 8410-2 ####[facility]ATORYCLIA [id number] [address] MCH (RBC) [Entitic mass] 27.8 pg Normal 26.0-34.0 [facility] Comment on above: Order Comment: Speci men Type: BLOOD SPECIMEN Performed By: #### 5 8410-2 ####[facility]ATORYCLIA [id number] [address] MCHC (RBC) [Mass/Vol] 30.9 g/dL Normal 30.5-36.0 [facility] Comment on above: Order Comment: Speci men Type: BLOOD SPECIMEN Performed By: #### 5 8410-2 ####[facility]ATORYCLIA [id number] [address] MCV (RBC) [Entitic vol] 90.0 fL Normal 80.0-100.0 [facility] Comment on above: Order Comment: Speci men Type: BLOOD SPECIMEN Performed By: #### 5 8410-2 ####[facility]ATORYCLIA [id number] [address] Nucleated RBC (Bld) [#/Vol] 10*3/uL Normal <0.01 [facility] Comment on above: Order Comment: Speci men Type: BLOOD SPECIMEN Performed By: #### 5 8410-2 ####[facility]ATORYCLIA [id number] [address] Platelet mean volume (Bld) [Entitic vol] 10.4 fL Normal 9.0-12.7 [facility] Comment on above: Order Comment: Speci men Type: BLOOD SPECIMEN Performed By: #### 5 8410-2 ####[facility]ATORYCLIA [id number] [address] Platelets (Bld) [#/Vol] 236 10*3/uL Normal 150-400 [facility] Comment on above: Order Comment: Speci men Type: BLOOD SPECIMEN Performed By: #### 5 8410-2 ####[facility]ATORYCLIA [id number] [address] RBC (Bld) [#/Vol] 4.39 10*6/uL Normal 4.20-6.00 [facility] Comment on above: Order Comment: Speci men Type: BLOOD SPECIMEN Performed By: #### 5 8410-2 ####[facility]ATORYCLIA [id number] [address] WBC (Bld) [#/Vol] 9.74 10*3/uL Normal 3.70-11.00 [facility] Comment on above: Order Comment: Speci men Type: BLOOD SPECIMEN Performed By: #### 5 8410-2 ####[facility]ATORYCLIA [id number] [address] CONSULT PROGon 06-06-2021 CONSULT PROG Normal [facility] CONSULT PROG Normal [facility] Magnesium SerPl-mCncon 06-06 Magnesium [Mass/Vol] 2.5 mg/dL High 1.7-2.3 [facility] Comment on above: Order Comment: Speci men Type: BLOOD SPECIMEN Performed By: #### 2 4321-2, 62476-5, 2777-1 ####[facility]ATORYCLIA [id number] [place] [address] [place] PT panel Coag (PPP)on 2021 INR Coag (PPP) [Relative time] 1.0 {INR} Normal 0.9-1.3 [facility] Comment on above: Order Comment: Speci men Type: BLOOD SPECIMEN Result Comment: Yris min K Antagonist (VKA) Therapeutic Range: INR 2 to 3 (Target INR of 2.5)Note: For patients treated with VKA drugs, such as warfarin, the [place] [employer] 2012 Guideline recommends [...] al. Chest 2012, 141:7S-47SNishimura RA, et al. [facility] 2017, 70: 252-289 Performed By: #### 3 4528-0, 30925-4 ####[facility]ATORYCLIA [id number] [place] [address] [place] PT Coag (PPP) [Time] 11.4 s Normal 9.7-13.0 [facility] Comment on above: Order Comment: Speci men Type: BLOOD SPECIMEN Performed By: #### 3 4528-0, 82411-8 ####[facility]ATORYCLIA [id number] [place] [address] [place] Phosphate SerPl-mCncon 06-06 Phosphate [Mass/Vol] 2.3 mg/dL Low 2.7-4.8 [facility] Comment on above: Order Comment: Speci men Type: BLOOD SPECIMEN Performed By: #### 2 4321-2, 45893-4, 2777-1 ####[facility]ATORYCLIA [id number] [address] THROMBOGRAPH HEPARINASE PANE [place] 06-06-2021 Clot angle after addition of heparinase TEG (Bld) [Angle] 70.2 degrees Normal 47.0-74.0 [facility] Comment on above: Order Comment: Speci men Type: BLOOD SPECIMEN Performed By: #### T EGHPP ####[facility] [id number] [address] Clot Lysis 30 Min post maximum clot amplitude TEG (Bld) [Length fraction] 0.0 % Normal 0.0-8.0 [facility] Comment on above: Order Comment: Speci men Type: BLOOD SPECIMEN Performed By: #### T EGHPP ####[facility]ATORYCLIA [id number] [address] Clotting time after addition of heparinase TEG (Bld) 5.7 minutes Normal 4.0-10.0 [facility] Comment on above: Order Comment: Speci men Type: BLOOD SPECIMEN Performed By: #### T EGHPP ####[facility]ATORYCLIA [id number] [address] Coagulation index TEG Qn (Bld) 1.2 Normal -4.6-3.2 [facility] Comment on above: Order Comment: Speci men Type: BLOOD SPECIMEN Result Comment: The Coagulation Index, a secondary parameter, is labeled by the beverage host as for "research use only" and is used per the beverage host's instructions. Its performance characteristics were determined by [facility]'s Isrrael Perez [facility] Pathology and Laboratory Medicine [place] in a manner consistent with CLIA requirements. This test has not been cleared by the U.S. Food and Drug Administration. Performed By: #### T EGHPP ####[facility]ATORYCLIA [id number] [address] Maximum clot firmness after addition of heparinase TEG (Bld) [Length] 64.0 mm Normal 51.0-75.0 [facility] Comment on above: Order Comment: Speci men Type: BLOOD SPECIMEN Performed By: #### T EGHPP ####[facility]ATORYCLIA [id number] [address] Vancomycin random [Mass/Vol] on 06-06-2021 Vancomycin [Mass/Vol] 17.4 ug/mL Normal 10.0-20.0 [facility] Comment on above: Order Comment: Speci men Type: BLOOD SPECIMEN Result Comment: Refe rence ranges and high/low indicator flags are provided as general guidelines only. The treating physician must determine appropriate target levels/dosing based on the specific clinical situation. Performed By: #### 4 091-5 ####[facility]ATORYCLIA [id number] [address] Vancomycin [Mass/Vol] 13.5 ug/mL Normal 10.0-20.0 [facility] Comment on above: Order Comment: Speci men Type: BLOOD SPECIMEN Result Comment: Refe rence ranges and high/low indicator flags are provided as general guidelines only. The treating physician must determine appropriate target levels/dosing based on the specific clinical situation. Performed By: #### 4 091-5 ####[facility]ATORYCLIA [id number] [address] aPTT PPPon 06-06-2021 aPTT Coag (PPP) [Time] 27.8 s Normal 23.0-32.[address] [facility] Comment on above: Order Comment: Speci men Type: BLOOD SPECIMEN Performed By: #### 3 4528-0, 23155-1 ####[facility]ATORYCLIA [id number] [address] Basic metabolic 2000 panelon 06-05-2021 Anion gap [Moles/Vol] 11 mmol/L Normal 9-18 [facility] Comment on above: Order Comment: Speci men Type: BLOOD SPECIMEN Performed By: #### 1 9123-9, 09957-2, 2776- ####[facility]ATORYCLIA [id number] [address] STATES OF [facility] Calcium [Mass/Vol] 8.6 mg/dL Normal 8.5-10.2 [facility] Comment on above: Order Comment: Speci men Type: BLOOD SPECIMEN Performed By: #### 1 9122-9, 77687-2, 2776- ####[facility]ATORYCLIA [id number] [address] STATES OF [facility] Chloride [Moles/Vol] 108 mmol/L High 97-105 [facility] Comment on above: Order Comment: Speci men Type: BLOOD SPECIMEN Performed By: #### 1 91239, , 2776-05 ####[facility]ATORYCLIA [id number] [address] STATES OF [facility] CO2 [Moles/Vol] 25 mmol/L Normal 22-30 [facility] Comment on above: Order Comment: Speci men Type: BLOOD SPECIMEN Performed By: #### 1 23-9, , 2776-05 ####[facility]ATORYCLIA [id number] [address] [place] Creatinine [Mass/Vol] 0.77 mg/dL Normal 0.73-1.22 [facility] Comment on above: Order Comment: Speci men Type: BLOOD SPECIMEN Performed By: #### 1 9123-9, 74476-3, 2776- ####[facility]ATORYCLIA [id number] [place] [address] [place] GFR/1.73 sq M.predicted MDRD (S/P/Bld) [Vol rate/Area] mL/min/{1.73_m2} Normal [facility] Comment on above: [...] actual GFR. Performed By: #### 1 9123-9, 21773-0, 2776-05 ####[facility]ITALCLIA [id number] [place] [address] [place] Glucose [Mass/Vol] 96 mg/dL Normal 74-99 [facility] Comment on above: Order Comment: Speci men Type: BLOOD SPECIMEN Result Comment: The [place] [employer] (ADA) provides guidance for cutoff [...] Standards of Medical Care in Diabetes 2016, [place] [employer]. Diabetes Care. 2016.39(Suppl 1). Performed By: #### 1 9123-9, 11110-2, 2776-05 ####[facility]ATORYCLIA [id number] [place] [address] [place] Potassium [Moles/Vol] 3.9 mmol/L Normal 3.7-5.1 [facility] Comment on above: Order Comment: Speci men Type: BLOOD SPECIMEN Performed By: #### 1 9123-9, 45067-8, 2776-05 ####[facility]ATORYCLIA [id number] [place] [id number] [place] Sodium [Moles/Vol] 144 mmol/L Normal 136-144 [facility] Comment on above: Order Comment: Speci men Type: BLOOD SPECIMEN Performed By: #### 1 9123-9, 54078-3, 2777-1 ####[facility]ATORYCLIA [id number] [address] STATES [facility] Urea nitrogen [Mass/Vol] 26 mg/dL High 9-24 [facility] Comment on above: Order Comment: Speci men Type: BLOOD SPECIMEN Performed By: #### 1 9123-9, 15898-2, 2776- ####[facility]ATORYCLIA [id number] [address] CBC panel Auto (Bld)on 06-05 Erythrocyte distribution width (RBC) [Ratio] 15.9 % High 11.5-15.0 [facility] Comment on above: Order Comment: Speci men Type: BLOOD SPECIMEN Performed By: #### 5 8410-2 ####[facility]ATORYCLIA [id number] [address] Hematocrit (Bld) [Volume fraction] 39.6 % Normal 39.0-51.0 [facility] Comment on above: Order Comment: Speci men Type: BLOOD SPECIMEN Performed By: #### 5 8410-2 ####[facility]ATORYCLIA [id number] [address] STATES OF [facility] Hemoglobin (Bld) [Mass/Vol] 12.3 g/dL Low 13.0-17.0 [facility] Comment on above: Order Comment: Speci men Type: BLOOD SPECIMEN Performed By: #### 5 8410-2 ####[facility]ATORYCLIA [id number] [address] MCH (RBC) [Entitic mass] 28.1 pg Normal 26.0-34.0 [facility] Comment on above: Order Comment: Speci men Type: BLOOD SPECIMEN Performed By: #### 5 8410-2 ####[facility]ATORYCLIA [id number] [address] MCHC (RBC) [Mass/Vol] 31.1 g/dL Normal 30.5-36.0 [facility] Comment on above: Order Comment: Speci men Type: BLOOD SPECIMEN Performed By: #### 5 8410-2 ####[facility]ATORYCLIA [id number] [address] MCV (RBC) [Entitic vol] 90.4 fL Normal 80.0-100.0 [facility] Comment on above: Order Comment: Speci men Type: BLOOD SPECIMEN Performed By: #### 5 8410-2 ####[facility]ORYCLIA [id number] [address] Nucleated RBC (Bld) [#/Vol] 10*3/uL Normal <0.01 [facility] Comment on above: Order Comment: Speci men Type: BLOOD SPECIMEN Performed By: #### 5 8410-2 ####[facility]ORYCLIA [id number] [address] Platelet mean volume (Bld) [Entitic vol] 10.5 fL Normal 9.0-12.7 [facility] Comment on above: Order Comment: Speci men Type: BLOOD SPECIMEN Performed By: #### 5 8410-2 ####[facility]ATORYCLIA [id number] [address] Platelets (Bld) [#/Vol] 224 10*3/uL Normal 150-400 [facility] Comment on above: Order Comment: Speci men Type: BLOOD SPECIMEN Performed By: #### 5 8410-2 ####[facility]ORYCLIA [id number] [address] RBC (Bld) [#/Vol] 4.38 10*6/uL Normal 4.20-6.00 [facility] Comment on above: Order Comment: Speci men Type: BLOOD SPECIMEN Performed By: #### 5 8410-2 ####[facility]ORYCLIA [id number] [address] WBC (Bld) [#/Vol] 9.66 10*3/uL Normal 3.70-11.00 [facility] Comment on above: Order Comment: Speci men Type: BLOOD SPECIMEN Performed By: #### 5 8410-2 ####[facility]ATORYCLIA [id number] [address] CONSULT PROGon 06-05-2021 CONSULT PROG Normal [facility] Gas and Carbon monoxide pane l (BldV)on 06-05-2021 Base excess Calc (BldV) [Moles/Vol] 1.8 mmol/L Normal 0-2 [facility] Comment on above: Order Comment: Speci men Type: VENOUS BLOOD SPECIMEN Performed By: #### 2 4344-4 ####[facility]ATORYCLIA [id number] [address] Body temperature 100.4 [degF] Normal [facility] Comment on above: Order Comment: Speci men Type: VENOUS BLOOD SPECIMEN Performed By: #### 2 4344-4 ####[facility]ATORYCLIA [id number] [address] CALCIUM IONIZED, PH CORRECTED 1.21 mmol/L Normal 1.08-1.30 [facility] Comment on above: Order Comment: Speci men Type: VENOUS BLOOD SPECIMEN Performed By: #### 2 4344-4 ####[facility]ATORYCLIA [id number] [address] Calcium.ionized (BldV) [Mass/Vol] 1.19 mmol/L Normal 1.08-1.30 [facility] Comment on above: Order Comment: Speci men Type: VENOUS BLOOD SPECIMEN Performed By: #### 2 4344-4 ####[facility]ATORYCLIA [id number] [address] OF [facility] Carboxyhemoglobin (BldV) [Mass fraction] 1.0 % Normal 0.0-2.0 [facility] Comment on above: Order Comment: Speci men Type: VENOUS BLOOD SPECIMEN Result Comment: Carb oxyhemoglobin Reference Range for Smokers: 2.0-8.0% Performed By: #### 2 4344-4 ####[facility]ATORYCLIA [id number] [address] CO2 (BldV) [Partial pressure] 41 mm[Hg] Low 42-55 [facility] Comment on above: Order Comment: Speci men Type: VENOUS BLOOD SPECIMEN Performed By: #### 2 4344-4 ####[facility]ATORYCLIA [id number] [address] CO2 [Moles/Vol] 23.4 mmol/L Low 25-29 [facility] Comment on above: Order Comment: Speci men Type: VENOUS BLOOD SPECIMEN Performed By: #### 2 4344-4 ####[facility]ATORYCLIA [id number] [address] CO2 adjusted to patient's actual temperature (BldV) [Partial pressure] 43 mmHg Normal 42-55 [facility] Comment on above: Order Comment: Speci men Type: VENOUS BLOOD SPECIMEN Performed By: #### 2 4344-4 ####[facility]ORYCLIA [id number] [address] Glucose [Mass/Vol] 101 mg/dL Normal 60-105 [facility] Comment on above: Order Comment: Speci men Type: VENOUS BLOOD SPECIMEN Performed By: #### 2 4344-4 ####[facility]ORYCLIA [id number] [address] HCO3 (Bld) [Moles/Vol] 26.0 mmol/L Normal 24-28 [facility] Comment on above: Order Comment: Speci men Type: VENOUS BLOOD SPECIMEN Performed By: #### 2 4344-4 ####[facility]ORYCLIA [id number] [address] [place] Hematocrit (Bld) [Volume fraction] 38.4 % Low 39.0-51.0 [facility] Comment on above: Order Comment: Speci men Type: VENOUS BLOOD SPECIMEN Performed By: #### 2 4344-4 ####[facility]ATORYCLIA [id number] [place], [place] [address] [place] [address] Hemoglobin (Bld) [Mass/Vol] 12.5 g/dL Low 13.0-17.0 [facility] Comment on above: Order Comment: Speci men Type: VENOUS BLOOD SPECIMEN Performed By: #### 2 4344-4 ####[facility] LABORATORYCLIA [id number] [place], [place] [address] [place] [address] Methemoglobin (Bld) [Mass fraction] % Normal 0.0-1.5 [facility] Comment on above: Order Comment: Speci men Type: VENOUS BLOOD SPECIMEN Performed By: #### 2 4344-4 ####[facility]ORYCLIA [id number] [address] O2 THERAPY Ventilator Normal [facility] Comment on above: Order Comment: Speci men Type: VENOUS BLOOD SPECIMEN Performed By: #### 2 4344-4 ####[facility]ATORYCLIA [id number] [address] Oxygen (BldV) [Partial pressure] 44 mm[Hg] Normal 35-45 [facility] Comment on above: Order Comment: Speci men Type: VENOUS BLOOD SPECIMEN Performed By: #### 2 4344-4 ####[facility]ATORYCLIA [id number] [place], [place] [address] [place] [address] OF [facility] Oxygen adjusted to patient's actual temperature (BldV) [Partial pressure] 46.8 mmHg High 35-45 [facility] Comment on above: Order Comment: Speci men Type: VENOUS BLOOD SPECIMEN Performed By: #### 2 4344-4 ####[facility]ATORYCLIA [id number] [place], [place] [address] [place] [address] Oxygen saturation in Blood 76.5 % Normal 60-85 [facility] Comment on above: Order Comment: Speci men Type: VENOUS BLOOD SPECIMEN Performed By: #### 2 4344-4 ####[facility]ATORYCLIA [id number] [address] Oxyhemoglobin (BldV) [Mass fraction] 75 % Normal 60-85 [facility] Comment on above: Order Comment: Speci men Type: VENOUS BLOOD SPECIMEN Performed By: #### 2 4344-4 ####[facility]ORYCLIA [id number] [address] pH (BldV) 7.42 [pH] Normal 7.32-7.42 [facility] Comment on above: Order Comment: Speci men Type: VENOUS BLOOD SPECIMEN Performed By: #### 2 4344-4 ####[facility]ORYCLIA [id number] [address] pH adjusted to patient's actual temperature (BldV) 7.40 Normal 7.32-7.42 [facility] Comment on above: Order Comment: Speci men Type: VENOUS BLOOD SPECIMEN Performed By: #### 2 4344-4 ####[facility]ATORYCLIA [id number] [address] OF [facility] Potassium [Moles/Vol] 3.7 mmol/L Normal 3.5-5.0 [facility] Comment on above: Order Comment: Speci men Type: VENOUS BLOOD SPECIMEN Performed By: #### 2 4344-4 ####[facility]ORYCLIA [id number] [address] STATES OF [facility] Sodium [Moles/Vol] 141 mmol/L Normal 136-144 [facility] Comment on above: Order Comment: Speci men Type: VENOUS BLOOD SPECIMEN Performed By: #### 2 4344-4 ####[facility]ATORYCLIA [id number] [address] OF [facility] Magnesium SerPl-mCncon 06-05 Magnesium [Mass/Vol] 2.3 mg/dL Normal 1.7-2.3 [facility] Comment on above: Order Comment: Speci men Type: BLOOD SPECIMEN Performed By: #### 1 9123-9, 36316-4, 2777-1 ####[facility]ATORYCLIA [id number] [place] [address] [place] Phosphate SerPl-mCncon 06-05 Phosphate [Mass/Vol] 2.9 mg/dL Normal 2.7-4.8 [facility] Comment on above: Order Comment: Speci men Type: BLOOD SPECIMEN Performed By: #### 1 9123-9, 61226-3, 277- ####[facility]ATORYCLIA [id number] [place] [address] [place] Vancomycin random [Mass/Vol] on 06-05-2021 Vancomycin [Mass/Vol] 23.2 ug/mL High 10.0-20.0 [facility] Comment on above: Order Comment: Speci men Type: BLOOD SPECIMEN Result Comment: Refe rence ranges and high/low indicator flags are provided as general guidelines only. The treating physician must determine appropriate target levels/dosing based on the specific clinical situation. Performed By: #### 4 091-5 ####[facility]ATORYCLIA [id number] [place] [address] [place] (1,3)-G-L-QZNWUZdh 2 (1,3) B-D GLUCAN <31 Normal <60 [facility] Comment on above: Order Comment: Speci men Type: BLOOD SPECIMEN Performed By: #### B DGLUC ####[facility] LABCLIA [id number] [id number] [address] [place] (1,3) B-D GLUCAN, QUAL Negative Normal NEGAT [facility] Comment on above: Order Comment: Speci men Type: BLOOD SPECIMEN Result Comment: Cert ain fungi, such as the genus Cryptococcus which produces very low levels of (1,3)-pfbl-M-bonsfr, may not result in serum (1,3)-dqji-L-vbuyqh sufficiently elevated so as to be detected by the assay. Infections with fungi of the order Mucorales such as Absidia, Mucor and Rhizopus which are not known to produce (1,3)-kbus-C-gbscgx, are also observed to yield low serum (1,3)-oizn-P-ntaenz titers.In addition, the yeast phase of Blastomyces dermatitidis produces little (1,3)-byry-F-rcifhe and may not be detected by the assay. Performed By: #### B DGLUC ####[facility] RE[facility] LABCLIA [id number] [place] [id number] [address] [place] ALLIED HEALTHon 06-04-2021 ALLIED HEALTH Normal [facility] ALLIED HEALTH Normal [facility] ARTERIAL BLOOD GASESon 06-04 Base excess Calc (Bld) [Moles/Vol] 3 mmol/L High 0-2 [facility] Comment on above: Order Comment: Speci men Type: ARTERIAL BLOOD SPECIMEN Performed By: #### A LLBG ####[facility]ORATORYCLIA [id number] [address] Body temperature 98.06 [degF] Normal [facility] Comment on above: Order Comment: Speci men Type: ARTERIAL BLOOD SPECIMEN Performed By: #### A LLBG ####[facility]ATORYCLIA [id number] [address] CALCIUM IONIZED, PH CORRECTED 1.19 mmol/L Normal 1.08-1.30 [facility] Comment on above: Order Comment: Speci men Type: ARTERIAL BLOOD SPECIMEN Performed By: #### A LLBG ####[facility]ATORYCLIA [id number] [address] Calcium.ionized (BldV) [Mass/Vol] 1.14 mmol/L Normal 1.08-1.30 [facility] Comment on above: Order Comment: Speci men Type: ARTERIAL BLOOD SPECIMEN Performed By: #### A LLBG ####[facility]ATORYCLIA [id number] [address] [place] Carboxyhemoglobin (BldA) [Mass fraction] 1.2 % Normal 0.0-2.0 [facility] Comment on above: Order Comment: Speci men Type: ARTERIAL BLOOD SPECIMEN Result Comment: Carb oxyhemoglobin Reference Range for Smokers: 2.0-8.0% Performed By: #### A LLBG ####[facility]ATORYCLIA [id number] [address] CO2 (Bld) [Partial pressure] 35 mm Hg Low 36-46 [facility] Comment on above: Order Comment: Speci men Type: ARTERIAL BLOOD SPECIMEN Performed By: #### A LLBG ####[facility]ATORYCLIA [id number] [address] CO2 [Moles/Vol] 23.2 mmol/L Normal 22-28 [facility] Comment on above: Order Comment: Speci men Type: ARTERIAL BLOOD SPECIMEN Performed By: #### A LLBG ####[facility]ATORYCLIA [id number] [address] CO2 adjusted to patient's actual temperature (Bld) [Partial pressure] 34 mmHg Low 36-46 [facility] Comment on above: Order Comment: Speci men Type: ARTERIAL BLOOD SPECIMEN Performed By: #### A LLBG ####[facility]ATORYCLIA [id number] [address] Glucose [Mass/Vol] 115 mg/dL High 60-105 [facility] Comment on above: Order Comment: Speci men Type: ARTERIAL BLOOD SPECIMEN Performed By: #### A LLBG ####[facility]ORYCLIA [id number] [address] HCO3 (Bld) [Moles/Vol] 26 mmol/L Normal 22-[address] [facility] Comment on above: Order Comment: Speci men Type: ARTERIAL BLOOD SPECIMEN Performed By: #### A LLBG ####[facility]ATORYCLIA [id number] [address] Hematocrit (Bld) [Volume fraction] 35.3 % Low 39.0-51.0 [facility] Comment on above: Order Comment: Speci men Type: ARTERIAL BLOOD SPECIMEN Performed By: #### A LLBG ####[facility]ATORYCLIA [id number] [address] Hemoglobin (Bld) [Mass/Vol] 11.5 g/dL Low 13.0-17.0 [facility] Comment on above: Order Comment: Speci men Type: ARTERIAL BLOOD SPECIMEN Performed By: #### A LLBG ####[facility]ORYCLIA [id number] [address] Methemoglobin (Bld) [Mass fraction] % Normal 0.0-1.5 [facility] Comment on above: Order Comment: Speci men Type: ARTERIAL BLOOD SPECIMEN Performed By: #### A LLBG ####[facility]ORYCLIA [id number] [address] O2 THERAPY Ventilator Normal [facility] Comment on above: Order Comment: Speci men Type: ARTERIAL BLOOD SPECIMEN Performed By: #### A LLBG ####[facility]ORYCLIA [id number] [address] Oxygen (Bld) [Partial pressure] 66 mm Hg Low 85-95 [facility] Comment on above: Order Comment: Speci men Type: ARTERIAL BLOOD SPECIMEN Performed By: #### A LLBG ####[facility]ORYCLIA [id number] [address] Oxygen adjusted to patient's actual temperature (Bld) [Partial pressure] 64.3 mmHg Low 85-95 [facility] Comment on above: Order Comment: Speci men Type: ARTERIAL BLOOD SPECIMEN Performed By: #### A LLBG ####[facility]ORYCLIA [id number] [address] OXYGEN SATURATION, ARTERIAL 95 % Normal 95-98 [facility] Comment on above: Order Comment: Speci men Type: ARTERIAL BLOOD SPECIMEN Performed By: #### A LLBG ####[facility]ORYCLIA [id number] [address] Oxyhemoglobin (BldA) [Mass fraction] 93 % Low 95-98 [facility] Comment on above: Order Comment: Speci men Type: ARTERIAL BLOOD SPECIMEN Performed By: #### A LLBG ####[facility]ORYCLIA [id number] [address] pH (Bld) 7.49 [pH] High 7.35-7.45 [facility] Comment on above: Order Comment: Speci men Type: ARTERIAL BLOOD SPECIMEN Performed By: #### A LLBG ####[facility]ORYCLIA [id number] [address] pH adjusted to patient's actual temperature (Bld) 7.49 High 7.35-7.45 [facility] Comment on above: Order Comment: Speci men Type: ARTERIAL BLOOD SPECIMEN Performed By: #### A LLBG ####[facility]ORYCLIA [id number] [address] Potassium [Moles/Vol] 2.8 mmol/L Low 3.5-5.0 [facility] Comment on above: Order Comment: Speci men Type: ARTERIAL BLOOD SPECIMEN Performed By: #### A LLBG ####[facility]ATORYCLIA [id number] [address] Bas Metab 2000 Pnl SerPlon 0 06-04-2021 Sodium [Moles/Vol] 143 mmol/L Normal 136-144 [facility] Comment on above: Order Comment: Speci men Type: BLOOD SPECIMEN Performed By: #### 2 777-1, 97531-5, 59838-2 ####[facility]ATORYCLIA [id number] [address] Order Comment: Speci men Type: ARTERIAL BLOOD SPECIMEN Performed By: #### A LLBG ####[facility]ORY[facility] [id number] [address] Basic metabolic 2000 panelon 06-04-2021 Anion gap [Moles/Vol] 11 mmol/L Normal 9-18 [facility] Comment on above: Order Comment: Speci men Type: BLOOD SPECIMEN Performed By: #### 2 777-1, , ####[facility]ORYCLIA [id number] [address] Calcium [Mass/Vol] 8.5 mg/dL Normal 8.5-10.2 [facility] Comment on above: Order Comment: Speci men Type: BLOOD SPECIMEN Performed By: #### 2 777-1, , ####[facility]ORYCLIA [id number] [address] [place] Chloride [Moles/Vol] 107 mmol/L High 97-105 [facility] Comment on above: Order Comment: Speci men Type: BLOOD SPECIMEN Performed By: #### 2 777-1, , ####[facility]ORYCLIA [id number] [address] STATES OF [facility] CO2 [Moles/Vol] 25 mmol/L Normal 22-30 [facility] Comment on above: Order Comment: Speci men Type: BLOOD SPECIMEN Performed By: #### 2 777-1, , ####[facility]ORYCLIA [id number] [address] [place] Creatinine [Mass/Vol] 0.77 mg/dL Normal 0.73-1.22 [facility] Comment on above: Order Comment: Speci men Type: BLOOD SPECIMEN Performed By: #### 2 777-1, , ####[facility]ATORYCLIA [id number] [place] [address] [place] GFR/1.73 sq M.predicted MDRD (S/P/Bld) [Vol rate/Area] mL/min/{1.73_m2} Normal [facility] Comment on above: [...] GFR. Performed By: #### 2 777-1, , ####[facility] [id number] [place] [address] [place] Glucose [Mass/Vol] 107 mg/dL High 74-99 [facility] Comment on above: Order Comment: Speci men Type: BLOOD SPECIMEN Result Comment: The [place] [employer] (ADA) provides guidance for cutoff [...] Standards of Medical Care in Diabetes 2016, [place] [employer]. Diabetes Care. 2016.39(Suppl 1). Performed By: #### 2 777-1, , ####[facility]ATORYCLIA [id number] [place] [address] [place] Potassium [Moles/Vol] 3.1 mmol/L Low 3.7-5.1 [facility] Comment on above: Order Comment: Speci men Type: BLOOD SPECIMEN Performed By: #### 2 777-1, , ####[facility]ATORYCLIA [id number] [place] [address] [place] Urea nitrogen [Mass/Vol] 19 mg/dL Normal 9-24 [facility] Comment on above: Order Comment: Speci men Type: BLOOD SPECIMEN Performed By: #### 2 777-1, 83263-4, 81983-7 ####[facility]ATORYCLIA [id number] [address] CBC panel Auto (Bld)on 06-04 Erythrocyte distribution width (RBC) [Ratio] 15.8 % High 11.5-15.0 [facility] Comment on above: Order Comment: Speci men Type: BLOOD SPECIMEN Performed By: #### 5 8410-2 ####[facility]ATORYCLIA [id number] [address] Hematocrit (Bld) [Volume fraction] 36.9 % Low 39.0-51.0 [facility] Comment on above: Order Comment: Speci men Type: BLOOD SPECIMEN Performed By: #### 5 8410-2 ####[facility]ATORYCLIA [id number] [address] Hemoglobin (Bld) [Mass/Vol] 11.2 g/dL Low 13.0-17.0 [facility] Comment on above: Order Comment: Speci men Type: BLOOD SPECIMEN Performed By: #### 5 8410-2 ####[facility]ATORYCLIA [id number] [address] MCH (RBC) [Entitic mass] 27.3 pg Normal 26.0-34.0 [facility] Comment on above: Order Comment: Speci men Type: BLOOD SPECIMEN Performed By: #### 5 8410-2 ####[facility]ATORYCLIA [id number] [address] MCHC (RBC) [Mass/Vol] 30.4 g/dL Low 30.5-36.0 [facility] Comment on above: Order Comment: Speci men Type: BLOOD SPECIMEN Performed By: #### 5 8410-2 ####[facility]ATORYCLIA [id number] [address] MCV (RBC) [Entitic vol] 89.8 fL Normal 80.0-100.0 [facility] Comment on above: Order Comment: Speci men Type: BLOOD SPECIMEN Performed By: #### 5 8410-2 ####[facility]ATORYCLIA [id number] [address] Nucleated RBC (Bld) [#/Vol] 10*3/uL Normal <0.01 [facility] Comment on above: Order Comment: Speci men Type: BLOOD SPECIMEN Performed By: #### 5 8410-2 ####[facility]ATORYCLIA [id number] [address] Platelet mean volume (Bld) [Entitic vol] 10.7 fL Normal 9.0-12.7 [facility] Comment on above: Order Comment: Speci men Type: BLOOD SPECIMEN Performed By: #### 5 8410-2 ####[facility]ATORYCLIA [id number] [address] Platelets (Bld) [#/Vol] 174 10*3/uL Normal 150-400 [facility] Comment on above: Order Comment: Speci men Type: BLOOD SPECIMEN Performed By: #### 5 8410-2 ####[facility]ATORYCLIA [id number] [address] RBC (Bld) [#/Vol] 4.11 10*6/uL Low 4.20-6.00 [facility] Comment on above: Order Comment: Speci men Type: BLOOD SPECIMEN Performed By: #### 5 8410-2 ####[facility]ORYCLIA [id number] [address] WBC (Bld) [#/Vol] 8.29 10*3/uL Normal 3.70-11.00 [facility] Comment on above: Order Comment: Speci men Type: BLOOD SPECIMEN Performed By: #### 5 8410-2 ####[facility]ATORYCLIA [id number] OF [facility] CONSULT PROGon 06-04-2021 CONSULT PROG Normal [facility] CT BRAIN WO IVCONon 06-04-19 CT BRAIN WO IVCON Normal [facility] CT CHEST W IVCON PEon 2021 CT CHEST W IVCON PE Normal [facility] Magnesium SerPl-mCncon 06-04 Magnesium [Mass/Vol] 2.2 mg/dL Normal 1.7-2.3 [facility] Comment on above: Order Comment: Speci men Type: BLOOD SPECIMEN Performed By: #### 2 777-1, 66384-0, 81367-1 ####[facility]ATORYCLIA [id number] [address] [facility] Natriuretic peptide.B prohormone N-Terminal [Mass/Vol] 229 pg/mL High <125 [facility] Comment on above: Order Comment: Speci men Type: BLOOD SPECIMEN Performed By: #### 3 3762-6, 409-5 ####[facility]ATORYCLIA [id number] [address] [place] Phosphate SerPl-ncon 06-04 Phosphate [Mass/Vol] 2.0 mg/dL Low 2.7-4.8 [facility] Comment on above: Order Comment: Speci men Type: BLOOD SPECIMEN Performed By: #### 2 777-1, 08545-3, 05542-7 ####[facility]ATORYCLIA [id number] [address] [place] Vancomycin random [Mass/Vol] on 06-04-2021 Vancomycin [Mass/Vol] 35.2 ug/mL High 10.0-20.0 [facility] Comment on above: Order Comment: Speci men Type: BLOOD SPECIMEN Result Comment: Refe rence ranges and high/low indicator flags are provided as general guidelines only. The treating physician must determine appropriate target levels/dosing based on the specific clinical situation. Performed By: #### 3 3762-6, 4091-5 ####[facility]ORATORYCLIA [id number] [address] [place] XR ABDOMEN 1V SUPINEon 06-04 XR ABDOMEN 1V SUPINE Normal [facility] ALLIED HEALTHon 06-03-2021 ALLIED HEALTH Normal [facility] ARTERIAL BLOOD GASESon 06-03 Base excess Calc (Bld) [Moles/Vol] 5 mmol/L High 0-2 [facility] Comment on above: Order Comment: Speci men Type: ARTERIAL BLOOD SPECIMEN Performed By: #### A LLBG ####[facility]ATORYCLIA [id number] [address] Body temperature 99.5 [degF] Normal [facility] Comment on above: Order Comment: Speci men Type: ARTERIAL BLOOD SPECIMEN Performed By: #### A LLBG ####[facility]ATORYCLIA [id number] [address] CALCIUM IONIZED, PH CORRECTED 1.18 mmol/L Normal 1.08-1.30 [facility] Comment on above: Order Comment: Speci men Type: ARTERIAL BLOOD SPECIMEN Performed By: #### A LLBG ####[facility]ORYCLIA [id number] [address] Calcium.ionized (BldV) [Mass/Vol] 1.16 mmol/L Normal 1.08-1.30 [facility] Comment on above: Order Comment: Speci men Type: ARTERIAL BLOOD SPECIMEN Performed By: #### A LLBG ####[facility]ATORYCLIA [id number] [address] OF [facility] Carboxyhemoglobin (BldA) [Mass fraction] 1.2 % Normal 0.0-2.0 [facility] Comment on above: Order Comment: Speci men Type: ARTERIAL BLOOD SPECIMEN Result Comment: Carb oxyhemoglobin Reference Range for Smokers: 2.0-8.0% Performed By: #### A LLBG ####[facility]ATORYCLIA [id number] [place] [address] [place] CO2 (Bld) [Partial pressure] 45 mm Hg Normal 36-46 [facility] Comment on above: Order Comment: Speci men Type: ARTERIAL BLOOD SPECIMEN Performed By: #### A LLBG ####[facility]ORYCLIA [id number] [address] [place] CO2 [Moles/Vol] 26.9 mmol/L Normal 22-28 [facility] Comment on above: Order Comment: Speci men Type: ARTERIAL BLOOD SPECIMEN Performed By: #### A LLBG ####[facility]ORYCLIA [id number] [address] OF [facility] CO2 adjusted to patient's actual temperature (Bld) [Partial pressure] 47 mmHg High 36-46 [facility] Comment on above: Order Comment: Speci men Type: ARTERIAL BLOOD SPECIMEN Performed By: #### A LLBG ####[facility]ORYCLIA [id number] [address] Glucose [Mass/Vol] 141 mg/dL High 60-105 [facility] Comment on above: Order Comment: Speci men Type: ARTERIAL BLOOD SPECIMEN Performed By: #### A LLBG ####[facility]ORYCLIA [id number] [address] [place] HCO3 (Bld) [Moles/Vol] 30 mmol/L High 22-[address] [facility] Comment on above: Order Comment: Speci men Type: ARTERIAL BLOOD SPECIMEN Performed By: #### A LLBG ####[facility]ORYCLIA [id number] [address] [place] Hematocrit (Bld) [Volume fraction] 35.8 % Low 39.0-51.0 [facility] Comment on above: Order Comment: Speci men Type: ARTERIAL BLOOD SPECIMEN Performed By: #### A LLBG ####[facility]ORYCLIA [id number] [address] [place] Hemoglobin (Bld) [Mass/Vol] 11.6 g/dL Low 13.0-17.0 [facility] Comment on above: Order Comment: Speci men Type: ARTERIAL BLOOD SPECIMEN Performed By: #### A LLBG ####[facility] [facility]ORYCLIA [id number] [address] Methemoglobin (Bld) [Mass fraction] % Normal 0.0-1.5 [facility] Comment on above: Order Comment: Speci men Type: ARTERIAL BLOOD SPECIMEN Performed By: #### A LLBG ####[facility]ORYCLIA [id number] [address] O2 THERAPY Ventilator Normal [facility] Comment on above: Order Comment: Speci men Type: ARTERIAL BLOOD SPECIMEN Performed By: #### A LLBG ####[facility]ORYCLIA [id number] [address] Oxygen (Bld) [Partial pressure] 69 mm Hg Low 85-95 [facility] Comment on above: Order Comment: Speci men Type: ARTERIAL BLOOD SPECIMEN Performed By: #### A LLBG ####[facility]ORYCLIA [id number] [address] Oxygen adjusted to patient's actual temperature (Bld) [Partial pressure] 70.8 mmHg Low 85-95 [facility] Comment on above: Order Comment: Speci men Type: ARTERIAL BLOOD SPECIMEN Performed By: #### A LLBG ####[facility]ORYCLIA [id number] [address] OXYGEN SATURATION, ARTERIAL 94 % Low 95-98 [facility] Comment on above: Order Comment: Speci men Type: ARTERIAL BLOOD SPECIMEN Performed By: #### A LLBG ####[facility]ORYCLIA [id number] [address] Oxyhemoglobin (BldA) [Mass fraction] 93 % Low 95-98 [facility] Comment on above: Order Comment: Speci men Type: ARTERIAL BLOOD SPECIMEN Performed By: #### A LLBG ####[facility]ORYCLIA [id number] [address] pH (Bld) 7.43 [pH] Normal 7.35-7.45 [facility] Comment on above: Order Comment: Speci men Type: ARTERIAL BLOOD SPECIMEN Performed By: #### A LLBG ####[facility]ORYCLIA [id number] [address] pH adjusted to patient's actual temperature (Bld) 7.43 Normal 7.35-7.45 [facility] Comment on above: Order Comment: Speci men Type: ARTERIAL BLOOD SPECIMEN Performed By: #### A LLBG ####[facility]ATORYCLIA [id number] [address] Potassium [Moles/Vol] 3.1 mmol/L Low 3.5-5.0 [facility] Comment on above: Order Comment: Speci men Type: ARTERIAL BLOOD SPECIMEN Performed By: #### A LLBG ####[facility]ATORYCLIA [id number] [address] [place] Sodium [Moles/Vol] 145 mmol/L High 136-144 [facility] Comment on above: Order Comment: Speci men Type: ARTERIAL BLOOD SPECIMEN Performed By: #### A LLBG ####[facility]ATORYCLIA [id number] [address] [place] ASPERGILLUS GALACTOMANNAN SE RUMon 06-03-2021 Galactomannan Ag IA Ql Negative Normal NEGAT [facility] Comment on above: Order Comment: Speci [...] is suspected. Performed By: #### A SGALS ####[facility] LABCLIA [id number] [id number] [address] [place] Galactomannan Ag IA Qn <0.[address] [facility] Comment on above: Order Comment: Speci men Type: BLOOD SPECIMEN Result Comment: Inde x Values are Interpreted as Follows:Negative specimens <0.50Positive specimens >=0.50 Performed By: #### A SGALS ####[facility] LABCLIA [id number] NILESH MCKEON [id number] [address] [place] Basic metabolic 2000 panelon 06-03-2021 Anion gap [Moles/Vol] 8 mmol/L Low 9-18 [facility] Comment on above: Order Comment: Speci men Type: BLOOD SPECIMEN Performed By: #### 1 9123-9, 2777-1, 45087-6 ####[facility]ORYCLIA [id number] [place] [address] [place] Calcium [Mass/Vol] 8.0 mg/dL Low 8.5-10.2 [facility] Comment on above: Order Comment: Speci men Type: BLOOD SPECIMEN Performed By: #### 1 9123-9, 277-, 03561-1 ####[facility]ORYCLIA [id number] [place] [address] [place] Chloride [Moles/Vol] 110 mmol/L High 97-105 [facility] Comment on above: Order Comment: Speci men Type: BLOOD SPECIMEN Performed By: #### 1 9123-9, 27711-04, 27929-1 ####[facility] [facility]ORYCLIA [id number] [place] [address] [place] CO2 [Moles/Vol] 28 mmol/L Normal 22-30 [facility] Comment on above: Order Comment: Speci men Type: BLOOD SPECIMEN Performed By: #### 1 9123-9, 2777-1, 51236-2 ####[facility]ORYCLIA [id number] [address] [place] Creatinine [Mass/Vol] 0.75 mg/dL Normal 0.73-1.22 [facility] Comment on above: Order Comment: Speci men Type: BLOOD SPECIMEN Performed By: #### 1 9123-9, 2777-1, 85907-2 ####[facility]ATORYCLIA [id number] [address] [place] GFR/1.73 sq M.predicted MDRD (S/P/Bld) [Vol rate/Area] mL/min/{1.73_m2} Normal [facility] Comment on above: [...] GFR. Performed By: #### 1 9123-9, 2777-1, 13100-8 ####[facility]ITALIA [id number] [place] [id number] [place] Glucose [Mass/Vol] 141 mg/dL High 74-99 [facility] Comment on above: Order Comment: Speci men Type: BLOOD SPECIMEN Result Comment: The [place] [employer] (ADA) provides guidance for cutoff [...] Standards of Medical Care in Diabetes 2016, [place] [employer]. Diabetes Care. 2016.39(Suppl 1). Performed By: #### 1 9123-9, 2777-1, 21988-8 ####[facility]ATORYCLIA [id number] [address] STATES [facility] Potassium [Moles/Vol] 3.3 mmol/L Low 3.7-5.1 [facility] Comment on above: Order Comment: Speci men Type: BLOOD SPECIMEN Performed By: #### 1 9123-9, 2777-1, 21410-2 ####[facility]ATORYCLIA [id number] [address] STATES [facility] Sodium [Moles/Vol] 146 mmol/L High 136-144 [facility] Comment on above: Order Comment: Speci men Type: BLOOD SPECIMEN Performed By: #### 1 9123-9, 2777-1, 27624-9 ####[facility]ORYCLIA [id number] [address] Urea nitrogen [Mass/Vol] 10 mg/dL Normal 9-24 [facility] Comment on above: Order Comment: Speci men Type: BLOOD SPECIMEN Performed By: #### 1 9123-9, 2777-, 44062-9 ####[facility]ATORYCLIA [id number] [address] OF [facility] CASE MANAGEMon 06-03-2021 CASE MANAGEM Normal [facility] CBC panel Auto (Bld)on 06-03 Erythrocyte distribution width (RBC) [Ratio] 15.6 % High 11.5-15.0 [facility] Comment on above: Order Comment: Speci men Type: BLOOD SPECIMEN Performed By: #### 5 8410-2 ####[facility]ATORYCLIA [id number] [address] Hematocrit (Bld) [Volume fraction] 36.9 % Low 39.0-51.0 [facility] Comment on above: Order Comment: Speci men Type: BLOOD SPECIMEN Performed By: #### 5 8410-2 ####[facility]ATORYCLIA [id number] [address] [place] Hemoglobin (Bld) [Mass/Vol] 11.1 g/dL Low 13.0-17.0 [facility] Comment on above: Order Comment: Speci men Type: BLOOD SPECIMEN Performed By: #### 5 8410-2 ####[facility]ATORYCLIA [id number] [address] MCH (RBC) [Entitic mass] 27.0 pg Normal 26.0-34.0 [facility] Comment on above: Order Comment: Speci men Type: BLOOD SPECIMEN Performed By: #### 5 8410-2 ####[facility]ORYCLIA [id number] [address] MCHC (RBC) [Mass/Vol] 30.1 g/dL Low 30.5-36.0 [facility] Comment on above: Order Comment: Speci men Type: BLOOD SPECIMEN Performed By: #### 5 8410-2 ####[facility]ATORYCLIA [id number] [address] MCV (RBC) [Entitic vol] 89.8 fL Normal 80.0-100.0 [facility] Comment on above: Order Comment: Speci men Type: BLOOD SPECIMEN Performed By: #### 5 8410-2 ####[facility]ATORYCLIA [id number] [address] Nucleated RBC (Bld) [#/Vol] 10*3/uL Normal <0.01 [facility] Comment on above: Order Comment: Speci men Type: BLOOD SPECIMEN Performed By: #### 5 8410-2 ####[facility]ATORYCLIA [id number] [address] Platelet mean volume (Bld) [Entitic vol] 10.5 fL Normal 9.0-12.7 [facility] Comment on above: Order Comment: Speci men Type: BLOOD SPECIMEN Performed By: #### 5 8410-2 ####[facility]ATORYCLIA [id number] [address] Platelets (Bld) [#/Vol] 196 10*3/uL Normal 150-400 [facility] Comment on above: Order Comment: Speci men Type: BLOOD SPECIMEN Performed By: #### 5 8410-2 ####[facility]ATORYCLIA [id number] [address] OF [facility] RBC (Bld) [#/Vol] 4.11 10*6/uL Low 4.20-6.00 [facility] Comment on above: Order Comment: Speci men Type: BLOOD SPECIMEN Performed By: #### 5 8410-2 ####[facility]ORYCLIA [id number] [address] STATES OF [facility] WBC (Bld) [#/Vol] 8.18 10*3/uL Normal 3.70-11.00 [facility] Comment on above: Order Comment: Speci men Type: BLOOD SPECIMEN Performed By: #### 5 8410-2 ####[facility]ATORYCLIA [id number] [address] CONSULTon 06-03-2021 CONSULT Normal [facility] CONSULT PROGon 06-03-2021 CONSULT PROG Normal [facility] Gas and Carbon monoxide pane l (BldV)on 06-03-2021 Base excess Calc (BldV) [Moles/Vol] 1.4 mmol/L Normal 0-2 [facility] Comment on above: Order Comment: Speci men Type: VENOUS BLOOD SPECIMEN Performed By: #### 2 4344-4 ####[facility]ATORYCLIA [id number] [address] Body temperature 98.42 [degF] Normal [facility] Comment on above: Order Comment: Speci men Type: VENOUS BLOOD SPECIMEN Performed By: #### 2 4344-4 ####[facility]ATORYCLIA [id number] [address] CALCIUM IONIZED, PH CORRECTED 1.09 mmol/L Normal 1.08-1.30 [facility] Comment on above: Order Comment: Speci men Type: VENOUS BLOOD SPECIMEN Performed By: #### 2 4344-4 ####[facility]ORYCLIA [id number] [address] Calcium.ionized (BldV) [Mass/Vol] 1.12 mmol/L Normal 1.08-1.30 [facility] Comment on above: Order Comment: Speci men Type: VENOUS BLOOD SPECIMEN Performed By: #### 2 4344-4 ####[facility]ATORYCLIA [id number] [address] Carboxyhemoglobin (BldV) [Mass fraction] 1.7 % Normal 0.0-2.0 [facility] Comment on above: Order Comment: Speci men Type: VENOUS BLOOD SPECIMEN Result Comment: Carb oxyhemoglobin Reference Range for Smokers: 2.0-8.0% Performed By: #### 2 4344-4 ####[facility] [facility]ATORYCLIA [id number] [address] CO2 (BldV) [Partial pressure] 50 mm[Hg] Normal 42-55 [facility] Comment on above: Order Comment: Speci men Type: VENOUS BLOOD SPECIMEN Performed By: #### 2 4344-4 ####[facility]ORYCLIA [id number] [address] CO2 [Moles/Vol] 24.9 mmol/L Low 25-29 [facility] Comment on above: Order Comment: Speci men Type: VENOUS BLOOD SPECIMEN Performed By: #### 2 4344-4 ####[facility]ORYCL[facility] [id number] [address] CO2 adjusted to patient's actual temperature (BldV) [Partial pressure] 50 mmHg Normal 42-55 [facility] Comment on above: Order Comment: Speci men Type: VENOUS BLOOD SPECIMEN Performed By: #### 2 4344-4 ####[facility]ORYCLIA [id number] [address] FIO2 30 % Normal [facility] Comment on above: Order Comment: Speci men Type: VENOUS BLOOD SPECIMEN Performed By: #### 2 4344-4 ####[facility]ORYCLIA [id number] [address] Glucose [Mass/Vol] 191 mg/dL High 60-105 [facility] Comment on above: Order Comment: Speci men Type: VENOUS BLOOD SPECIMEN Performed By: #### 2 4344-4 ####[facility]ORYCLIA [id number] [address] [place] HCO3 (Bld) [Moles/Vol] 27.1 mmol/L Normal 24-28 [facility] Comment on above: Order Comment: Speci men Type: VENOUS BLOOD SPECIMEN Performed By: #### 2 4344-4 ####[facility]ORYCLIA [id number] [address] Hematocrit (Bld) [Volume fraction] 36.2 % Low 39.0-51.0 [facility] Comment on above: Order Comment: Speci men Type: VENOUS BLOOD SPECIMEN Performed By: #### 2 4344-4 ####[facility]ORYCLIA [id number] [address] Hemoglobin (Bld) [Mass/Vol] 11.8 g/dL Low 13.0-17.0 [facility] Comment on above: Order Comment: Speci men Type: VENOUS BLOOD SPECIMEN Performed By: #### 2 4344-4 ####[facility]ORYCLIA [id number] [address] INHALED TIDAL VOLUME (ML) 530 Normal [facility] Comment on above: Order Comment: Speci men Type: VENOUS BLOOD SPECIMEN Performed By: #### 2 4344-4 ####[facility]ORYCLIA [id number] [address] Methemoglobin (Bld) [Mass fraction] % Normal 0.0-1.5 [facility] Comment on above: Order Comment: Speci men Type: VENOUS BLOOD SPECIMEN Performed By: #### 2 4344-4 ####[facility]ORYCLIA [id number] [address] O2 THERAPY Ventilator Normal [facility] Comment on above: Order Comment: Speci men Type: VENOUS BLOOD SPECIMEN Performed By: #### 2 4344-4 ####[facility]ATORYCLIA [id number] [address] Oxygen (BldV) [Partial pressure] 69 mm[Hg] High 35-45 [facility] Comment on above: Order Comment: Speci men Type: VENOUS BLOOD SPECIMEN Performed By: #### 2 4344-4 ####[facility]ATORYCLIA [id number] [address] OF [facility] Oxygen adjusted to patient's actual temperature (BldV) [Partial pressure] 68.8 mmHg High 35-45 [facility] Comment on above: Order Comment: Speci men Type: VENOUS BLOOD SPECIMEN Performed By: #### 2 4344-4 ####[facility]ATORYCLIA [id number] [address] Oxygen saturation in Blood 92.4 % High 60-85 [facility] Comment on above: Order Comment: Speci men Type: VENOUS BLOOD SPECIMEN Performed By: #### 2 4344-4 ####[facility]ATORYCLIA [id number] [address] OF [facility] Oxyhemoglobin (BldV) [Mass fraction] 90 % High 60-85 [facility] Comment on above: Order Comment: Speci men Type: VENOUS BLOOD SPECIMEN Performed By: #### 2 4344-4 ####[facility]ATORYCLIA [id number] [address] [place] PEEP/CPAP 8 cmH2O Normal [facility] Comment on above: Order Comment: Speci men Type: VENOUS BLOOD SPECIMEN Performed By: #### 2 4344-4 ####[facility]ORYCLIA [id number] [address] [place] pH (BldV) 7.35 [pH] Normal 7.32-7.42 [facility] Comment on above: Order Comment: Speci men Type: VENOUS BLOOD SPECIMEN Performed By: #### 2 4344-4 ####[facility]ORYCLIA [id number] [address] pH adjusted to patient's actual temperature (BldV) 7.35 Normal 7.32-7.42 [facility] Comment on above: Order Comment: Speci men Type: VENOUS BLOOD SPECIMEN Performed By: #### 2 4344-4 ####[facility]ORYCLIA [id number] [address] Potassium [Moles/Vol] 3.6 mmol/L Normal 3.5-5.0 [facility] Comment on above: Order Comment: Speci men Type: VENOUS BLOOD SPECIMEN Performed By: #### 2 4344-4 ####[facility]ORYCLIA [id number] [address] SET VENTILATOR RESPIRATORY RATE (BPM) 18 BPM Normal [facility] Comment on above: Order Comment: Speci men Type: VENOUS BLOOD SPECIMEN Performed By: #### 2 4344-4 ####[facility]ORYCLIA [id number] [address] Sodium [Moles/Vol] 141 mmol/L Normal 136-144 [facility] Comment on above: Order Comment: Speci men Type: VENOUS BLOOD SPECIMEN Performed By: #### 2 4344-4 ####[facility]ORYCLIA [id number] [address] HIV 1+2 Ab IA Qlon 2 HIV 1 and 2 Ab IA.rapid Nom Normal [facility] Comment on above: Order Comment: Speci men Type: BLOOD SPECIMEN Result Comment: Test not indicated. Performed By: #### 3 1201-7, TOXMG ####[facility]ORYCLIA [id number] [address] HIV 1+2 Ab+HIV1 p24 Ag IA Ql Non-Reactive Normal Nonreactive [facility] Comment on above: Order Comment: Speci men Type: BLOOD SPECIMEN Result Comment: [place] Rev. Code 3701.243(E): This information has been [...] diagnoses. Performed By: #### 3 1201-7, TOXMG ####[facility]ATORYCLIA [id number] [address] HIVINT Normal [facility] Comment on above: Order Comment: Speci men Type: BLOOD SPECIMEN Result Comment: No e vidence of HIV-1 or HIV-2 infection. Should recent infection be suspected, repeat testing may be considered 2-3 weeks after this draw. Performed By: #### 3 1201-7, TOXMG ####[facility]ATORYCLIA [id number] [address] [place] Magnesium SerPl-mCncon 06-03 Magnesium [Mass/Vol] 1.9 mg/dL Normal 1.7-2.3 [facility] Comment on above: Order Comment: Speci men Type: BLOOD SPECIMEN Performed By: #### 1 9123-9, 2777-1, 41421-0 ####[facility]ORYCLIA [id number] [address] [place] NUTRITIONon 06-03-2021 NUTRITION Normal [facility] Phosphate SerPl-mCncon 06-03 Phosphate [Mass/Vol] 1.9 mg/dL Low 2.7-4.8 [facility] Comment on above: Order Comment: Speci men Type: BLOOD SPECIMEN Performed By: #### 1 9123-9, 2777-1, 52467-5 ####[facility]ATORYCLIA [id number] [address] TOXOPLASMOSIS IGM AND IGG AB on 06-03-2021 TOXO IGG QUAL Negative Normal Negative [facility] Comment on above: Order Comment: Speci men Type: BLOOD SPECIMEN Result Comment: No s erological evidence of past exposure to Toxoplasma gondii. Cannot exclude recent infection if the specimen collected within 3-4 weeks after infection.Negative <6.4 IU/mLEquivocal 6.4-9.9 IU/mLPositive >=10.0 IU/mL Performed By: #### 3 1201-7, TOXMG ####[facility]ATORYCLIA [id number] [address] TOXO IGM QUAL Negative Normal Negative [facility] Comment on above: Order Comment: Speci men Type: BLOOD SPECIMEN Result Comment: No s erological evidence of recent exposure to Toxoplasma gondii.Negative <0.9 IndexEquivocal 0.9-0.99 IndexPositive >=1.0 Index Performed By: #### 3 1201-7, TOXMG ####[facility]ATORYCLIA [id number] [address] OF [facility] US DVT LOWER BILon US DVT LOWER RAINER Normal [facility] XR CHEST 1V FRONTALon 2021 XR CHEST 1V FRONTAL Normal [facility] ARTERIAL BLOOD GASESon 06-02 Base excess Calc (Bld) [Moles/Vol] 2 mmol/L Normal 0-2 [facility] Comment on above: Order Comment: Speci men Type: ARTERIAL BLOOD SPECIMEN Performed By: #### A LLBG ####[facility]ATORYCLIA [id number] [address] Body temperature 99.32 [degF] Normal [facility] Comment on above: Order Comment: Speci men Type: ARTERIAL BLOOD SPECIMEN Performed By: #### A LLBG ####[facility]ORYCLIA [id number] [address] CALCIUM IONIZED, PH CORRECTED 1.15 mmol/L Normal 1.08-1.30 [facility] Comment on above: Order Comment: Speci men Type: ARTERIAL BLOOD SPECIMEN Performed By: #### A LLBG ####[facility]ATORYCLIA [id number] [place] [address] [place] Calcium.ionized (BldV) [Mass/Vol] 1.13 mmol/L Normal 1.08-1.30 [facility] Comment on above: Order Comment: Speci men Type: ARTERIAL BLOOD SPECIMEN Performed By: #### A LLBG ####[facility]ORYCLIA [id number] [address] Carboxyhemoglobin (BldA) [Mass fraction] 1.4 % Normal 0.0-2.0 [facility] Comment on above: Order Comment: Speci men Type: ARTERIAL BLOOD SPECIMEN Result Comment: Carb oxyhemoglobin Reference Range for Smokers: 2.0-8.0% Performed By: #### A LLBG ####[facility]ORYCLIA [id number] [address] CO2 (Bld) [Partial pressure] 39 mm Hg Normal 36-46 [facility] Comment on above: Order Comment: Speci men Type: ARTERIAL BLOOD SPECIMEN Performed By: #### A LLBG ####[facility]ORYCLIA [id number] [address] CO2 [Moles/Vol] 23.4 mmol/L Normal 22-28 [facility] Comment on above: Order Comment: Speci men Type: ARTERIAL BLOOD SPECIMEN Performed By: #### A LLBG ####[facility]ORYCLIA [id number] [address] CO2 adjusted to patient's actual temperature (Bld) [Partial pressure] 40 mmHg Normal 36-46 [facility] Comment on above: Order Comment: Speci men Type: ARTERIAL BLOOD SPECIMEN Performed By: #### A LLBG ####[facility]ORYCLIA [id number] [address] STATES OF [facility] Glucose [Mass/Vol] 156 mg/dL High 60-105 [facility] Comment on above: Order Comment: Speci men Type: ARTERIAL BLOOD SPECIMEN Performed By: #### A LLBG ####[facility]ATORYCLIA [id number] [place] [address] [place] HCO3 (Bld) [Moles/Vol] 26 mmol/L Normal 22-[address] [facility] Comment on above: Order Comment: Speci men Type: ARTERIAL BLOOD SPECIMEN Performed By: #### A LLBG ####[facility]ORYCLIA [id number] [address] [place] Hematocrit (Bld) [Volume fraction] 33.9 % Low 39.0-51.0 [facility] Comment on above: Order Comment: Speci men Type: ARTERIAL BLOOD SPECIMEN Performed By: #### A LLBG ####[facility]ORYCLIA [id number] [address] [place] Hemoglobin (Bld) [Mass/Vol] 11.0 g/dL Low 13.0-17.0 [facility] Comment on above: Order Comment: Speci men Type: ARTERIAL BLOOD SPECIMEN Performed By: #### A LLBG ####[facility]ORYCLIA [id number] [address] Methemoglobin (Bld) [Mass fraction] % Normal 0.0-1.5 [facility] Comment on above: Order Comment: Speci men Type: ARTERIAL BLOOD SPECIMEN Performed By: #### A LLBG ####[facility]ORYCLIA [id number] [address] [place] O2 THERAPY Ventilator Normal [facility] Comment on above: Order Comment: Speci men Type: ARTERIAL BLOOD SPECIMEN Performed By: #### A LLBG ####[facility]ORYCLIA [id number] [address] [place] Oxygen (Bld) [Partial pressure] 70 mm Hg Low 85-95 [facility] Comment on above: Order Comment: Speci men Type: ARTERIAL BLOOD SPECIMEN Performed By: #### A LLBG ####[facility]ORYCLIA [id number] [address] [place] Oxygen adjusted to patient's actual temperature (Bld) [Partial pressure] 72.2 mmHg Low 85-95 [facility] Comment on above: Order Comment: Speci men Type: ARTERIAL BLOOD SPECIMEN Performed By: #### A LLBG ####[facility]ORYCLIA [id number] [address] OXYGEN SATURATION, ARTERIAL 96 % Normal 95-98 [facility] Comment on above: Order Comment: Speci men Type: ARTERIAL BLOOD SPECIMEN Performed By: #### A LLBG ####[facility]ORYCLIA [id number] [address] Oxyhemoglobin (BldA) [Mass fraction] 94 % Low 95-98 [facility] Comment on above: Order Comment: Speci men Type: ARTERIAL BLOOD SPECIMEN Performed By: #### A LLBG ####[facility]ORYCLIA [id number] [address] pH (Bld) 7.43 [pH] Normal 7.35-7.45 [facility] Comment on above: Order Comment: Speci men Type: ARTERIAL BLOOD SPECIMEN Performed By: #### A LLBG ####[facility]ORYCLIA [id number] [address] pH adjusted to patient's actual temperature (Bld) 7.42 Normal 7.35-7.45 [facility] Comment on above: Order Comment: Speci men Type: ARTERIAL BLOOD SPECIMEN Performed By: #### A LLBG ####[facility]ORYCLIA [id number] [address] Potassium [Moles/Vol] 2.6 mmol/L Low 3.5-5.0 [facility] Comment on above: Order Comment: Speci men Type: ARTERIAL BLOOD SPECIMEN Performed By: #### A LLBG ####[facility]ORYCLIA [id number] [address] Sodium [Moles/Vol] 142 mmol/L Normal 136-144 [facility] Comment on above: Order Comment: Speci men Type: ARTERIAL BLOOD SPECIMEN Performed By: #### A LLBG ####[facility]ATORYCLIA [id number] [place] [address] [place] Ammonia Plas-sCncon 06-02-19 22 Ammonia (P) [Moles/Vol] 20 umol/L Normal 16-60 [facility] Comment on above: Order Comment: Speci men Type: BLOOD SPECIMEN Performed By: #### 1 6362-6 ####[facility]ATORYCLIA [id number] [place] [address] [place] Bacteria CSF Culton 06-02-19 22 Bacteria identified Cx Nom (CSF) CULTURE, CSF: No growth 14 days GRAM STAIN: No organisms seen Rare Polymorphonuclear leukocytes Gram stain performed on cytospun specimen. Normal [facility] Comment on above: Performed By: #### 6 06-4 ####[facility]ATORYCLIA [id number] [address] [place] Basic metabolic 2000 panelon 06-02-2021 Anion gap [Moles/Vol] 10 mmol/L Normal 9-18 [facility] Comment on above: Order Comment: Speci men Type: BLOOD SPECIMEN Performed By: #### 2 4321-2, , 2776-05 ####[facility]ATORYCLIA [id number] [place] [address] [place] Calcium [Mass/Vol] 8.1 mg/dL Low 8.5-10.2 [facility] Comment on above: Order Comment: Speci men Type: BLOOD SPECIMEN Performed By: #### 2 4321-2, , 2776-05 ####[facility]ORYCLIA [id number] [place] [address] [place] Chloride [Moles/Vol] 108 mmol/L High 97-105 [facility] Comment on above: Order Comment: Speci men Type: BLOOD SPECIMEN Performed By: #### 2 4321-2, , 2776-05 ####[facility]ORYCLIA [id number] [place] [address] [place] CO2 [Moles/Vol] 24 mmol/L Normal 22-30 [facility] Comment on above: Order Comment: Speci men Type: BLOOD SPECIMEN Performed By: #### 2 4321-2, , 2776-05 ####[facility]ATORYCLIA [id number] [place] [id number] [place] Creatinine [Mass/Vol] 0.78 mg/dL Normal 0.73-1.22 [facility] Comment on above: Order Comment: Spec men Type: BLOOD SPECIMEN Performed By: #### 2 4321-2, , 2776-05 ####[facility]ATORYCLIA [id number] [place] [address] [place] GFR/1.73 sq M.predicted MDRD (S/P/Bld) [Vol rate/Area] mL/min/{1.73_m2} Normal [facility] Comment on above: [...] Performed By: #### 2 4321-2, , 2776-05 ####[facility]ORYCLIA [id number] [place] [id number] [place] Glucose [Mass/Vol] 162 mg/dL High 74-99 [facility] Comment on above: Order Comment: [facility] Type: BLOOD SPECIMEN Result Comment: The [place] [employer] (ADA) provides guidance for cutoff [...] Standards of Medical Care in Diabetes 2016, [place] [employer]. Diabetes Care. 2016.39(Suppl 1). Performed By: #### 2 4321-2, , 2776-05 ####[facility]ORYCLIA [id number] [address] Potassium [Moles/Vol] 2.7 mmol/L Low 3.7-5.1 [facility] Comment on above: Order Comment: Speci men Type: BLOOD SPECIMEN Performed By: #### 2 4321-2, , 2776-05 ####[facility]ORYCLIA [id number] [address] Sodium [Moles/Vol] 142 mmol/L Normal 136-144 [facility] Comment on above: Order Comment: Speci men Type: BLOOD SPECIMEN Performed By: #### 2 1-2, , 2776-05 ####[facility]ORYCLIA [id number] [address] Urea nitrogen [Mass/Vol] 12 mg/dL Normal 9-24 [facility] Comment on above: Order Comment: Speci men Type: BLOOD SPECIMEN Performed By: #### 2 4321-2, , 2776-05 ####[facility]ORYCLIA [id number] [address] CBC panel Auto (Bld)on 06-02 Erythrocyte distribution width (RBC) [Ratio] 15.0 % Normal 11.5-15.0 [facility] Comment on above: Order Comment: Speci men Type: BLOOD SPECIMEN Performed By: #### 5 8410-2 ####[facility]ORYCLIA [id number] [address] Hematocrit (Bld) [Volume fraction] 34.3 % Low 39.0-51.0 [facility] Comment on above: Order Comment: Speci men Type: BLOOD SPECIMEN Performed By: #### 5 8410-2 ####[facility]ORYCLIA [id number] [address] Hemoglobin (Bld) [Mass/Vol] 10.3 g/dL Low 13.0-17.0 [facility] Comment on above: Order Comment: Speci men Type: BLOOD SPECIMEN Performed By: #### 5 8410-2 ####[facility]ORYCLIA [id number] [address] MCH (RBC) [Entitic mass] 27.0 pg Normal 26.0-34.0 [facility] Comment on above: Order Comment: Speci men Type: BLOOD SPECIMEN Performed By: #### 5 8410-2 ####[facility]ORYCLIA [id number] [address] MCHC (RBC) [Mass/Vol] 30.0 g/dL Low 30.5-36.0 [facility] Comment on above: Order Comment: Speci men Type: BLOOD SPECIMEN Performed By: #### 5 8410-2 ####[facility]ORYCLIA [id number] [address] MCV (RBC) [Entitic vol] 90.0 fL Normal 80.0-100.0 [facility] Comment on above: Order Comment: Speci men Type: BLOOD SPECIMEN Performed By: #### 5 8410-2 ####[facility]ORYCLIA [id number] [address] Nucleated RBC (Bld) [#/Vol] 10*3/uL Normal <0.01 [facility] Comment on above: Order Comment: Speci men Type: BLOOD SPECIMEN Performed By: #### 5 8410-2 ####[facility]ORYCLIA [id number] [address] Platelet mean volume (Bld) [Entitic vol] 10.2 fL Normal 9.0-12.7 [facility] Comment on above: Order Comment: Speci men Type: BLOOD SPECIMEN Performed By: #### 5 8410-2 ####[facility]ORATORYCLIA [id number] [address] Platelets (Bld) [#/Vol] 194 10*3/uL Normal 150-400 [facility] Comment on above: Order Comment: Speci men Type: BLOOD SPECIMEN Performed By: #### 5 8410-2 ####[facility]ATORYCLIA [id number] [address] OF [facility] RBC (Bld) [#/Vol] 3.81 10*6/uL Low 4.20-6.00 [facility] Comment on above: Order Comment: Speci men Type: BLOOD SPECIMEN Performed By: #### 5 8410-2 ####[facility]ORYCLIA [id number] [address] WBC (Bld) [#/Vol] 9.22 10*3/uL Normal 3.70-11.00 [facility] Comment on above: Order Comment: Speci men Type: BLOOD SPECIMEN Performed By: #### 5 8410-2 ####[facility]ATORYCLIA [id number] [address] CONSULT PROGon 06-02-2021 CONSULT PROG Normal [facility] CSF MANUAL DIFFon 06-02-2021 DIF TTL, CSF 25 cells counted Normal [facility] Comment on above: Order Comment: Speci men Type: CEREBROSPINAL FLUID Performed By: #### 3 4563-7, [id number], [id number] ####[facility]ORYCLIA [id number] [address] OF [facility] LYMPH%, CSF 4 % Low 50-90 [facility] Comment on above: Order Comment: Speci men Type: CEREBROSPINAL FLUID Performed By: #### 3 4563-7, [id number], [id number] ####[facility]ORYCLIA [id number] [address] [place] MACRO%, CSF 4 % High <1 [facility] Comment on above: Order Comment: Speci men Type: CEREBROSPINAL FLUID Performed By: #### 3 4563-7, [id number], [id number] ####[facility]ORYCLIA [id number] [address] [place] MONO%, CSF 20 % Normal 10-50 [facility] Comment on above: Order Comment: Speci men Type: CEREBROSPINAL FLUID Performed By: #### 3 4563-7, [id number], [id number] ####[facility]ORYCLIA [id number] [address] [place] NEUT%, CSF 72 % High 0-3 [facility] Comment on above: Order Comment: Speci men Type: CEREBROSPINAL FLUID Performed By: #### 3 4563-7, [id number], [id number] ####[facility]ORYCLIA [id number] [address] CSF PATHOLOGIST INTERP (LAB REFLEX ORDER-NO BILL)on 06-02-2021 CSF STAFF REVIEW Negative Normal [facility] Comment on above: Order Comment: Speci men Type: CEREBROSPINAL FLUID Performed By: #### 3 4563-7, [id number], [id number] ####[facility]ORYCLIA [id number] [address] Pathologist name Reviewed by Amador Stevens MD [facility] Comment on above: Order Comment: Speci men Type: CEREBROSPINAL FLUID Performed By: #### 3 4563-7, [id number], [id number] ####[facility]ORYCLIA [id number] [address] [place] Cell count panel (CSF)on Clarity (CSF) Clear Normal Clear [facility] Comment on above: Order Comment: Speci men Type: CEREBROSPINAL FLUID Performed By: #### 3 4563-7, [id number], [id number] ####[facility]ATORYCLIA [id number] [address] Clarity (Unsp spec) Not Indicated Normal Clear [facility] Comment on above: Order Comment: Speci men Type: CEREBROSPINAL FLUID Performed By: #### 3 4563-7, [id number], [id number] ####[facility]ATORYCLIA [id number] [address] Color (CSF) Colorless Normal Colorless [facility] Comment on above: Order Comment: Speci men Type: CEREBROSPINAL FLUID Performed By: #### 3 4563-7, [id number], [id number] ####[facility]ORYCLIA [id number] [address] Color (Spun CSF) Not Indicated Normal Colorless [facility] Comment on above: Order Comment: Speci men Type: CEREBROSPINAL FLUID Performed By: #### 3 4563-7, [id number], [id number] ####[facility]ORYCLIA [id number] [address] CSF TUBE NUMBER Sterile Container Normal [facility] Comment on above: Order Comment: Speci men Type: CEREBROSPINAL FLUID Performed By: #### 3 4563-7, [id number], [id number] ####[facility]ORYCLIA [id number] [address] RBC Manual cnt (CSF) [#/Vol] 117 cells/uL High 0-5 [facility] Comment on above: Order Comment: Speci men Type: CEREBROSPINAL FLUID Performed By: #### 3 4563-7, [id number], [id number] ####[facility]ORYCLIA [id number] [address] WBC Manual cnt (CSF) [#/Vol] 1 cells/uL Normal 0-[address] [place] [address] Comment on above: Order Comment: Speci men Type: CEREBROSPINAL FLUID Performed By: #### 3 4563-7, [id number], [id number] ####[facility]ORYCLIA [id number] [address] Glucose CSF-mCncon 2 Glucose (CSF) [Mass/Vol] 82 mg/dL High 40-70 [facility] Comment on above: Order Comment: Speci men Type: CEREBROSPINAL FLUID Result Comment: Lumb ar CSF glucose values of healthy patients are approximately 60% of the plasma values and must always be compared with a concurrently measured plasma value for adequate clinical interpretation.References: 1. Glucose HK (GLUC3) [package insert V 12.0 Citizen Of [place]]. [facility], [place], [place]. September 2015. 2. Michelle Moore, Loki HGarfield (2015). Chapter 7: Glucose and Lactate. F. Irina rose al.(eds.), Cerebrospinal Fluid in Clinical Neurology. [place]: [facility]. Performed By: #### 2 342-4 ####[facility]ORYCLIA [id number] [address] HEPATIC FUNCTION PNLon 06-02 Albumin [Mass/Vol] 3.2 g/dL Low 3.9-4.9 [facility] Comment on above: Order Comment: Speci men Type: BLOOD SPECIMEN Performed By: #### H [place], 84471-4 ####[facility]ORYCLIA [id number] [address] ALP [Catalytic activity/Vol] 67 U/L Normal 38-113 [facility] Comment on above: Order Comment: Speci men Type: BLOOD SPECIMEN Performed By: #### [place], [address]-4 ####[facility] [id number] [address] ALT With P-5'-P [Catalytic activity/Vol] 16 U/L Normal 10-54 [facility] Comment on above: Order Comment: Speci men Type: BLOOD SPECIMEN Performed By: #### H [place], 57620-3 ####[facility]ORYCLIA [id number] [address] AST With P-5'-P [Catalytic activity/Vol] 25 U/L Normal 14-40 [facility] Comment on above: Order Comment: Speci men Type: BLOOD SPECIMEN Performed By: #### [place], 34946-9 ####[facility]IA [id number] [address] Bilirubin [Mass/Vol] 0.2 mg/dL Normal 0.2-1.3 [facility] Comment on above: Order Comment: Speci men Type: BLOOD SPECIMEN Performed By: #### H FP, 81202-5 ####[facility]ORYCLIA [id number] [address] Bilirubin.conjugated [Mass/Vol] mg/dL Normal <0.2 [facility] Comment on above: Order Comment: Speci men Type: BLOOD SPECIMEN Performed By: #### H FP, ####[facility]ORYCLIA [id number] [address] Protein [Mass/Vol] 5.8 g/dL Low 6.3-8.0 [facility] Comment on above: Order Comment: Speci men Type: BLOOD SPECIMEN Performed By: #### H FP, ####[facility]ORYCLIA [id number] [address] MRI BRAIN WO/W IVCONon 06-02 MRI BRAIN WO/W IVCON Normal [facility] Magnesium SerPl-mCncon 06-02 Magnesium [Mass/Vol] 2.0 mg/dL Normal 1.7-2.3 [facility] Comment on above: Order Comment: Speci men Type: BLOOD SPECIMEN Performed By: #### 2 4321-2, 83932-3, 2777-1 ####[facility]CLIA [id number] [address] NT-proBNP SerPl-mCncon 06-02 Natriuretic peptide.B prohormone N-Terminal [Mass/Vol] 296 pg/mL High <125 [facility] Comment on above: Order Comment: Speci men Type: BLOOD SPECIMEN Performed By: #### [place], [address]-9 ####[facility]ORYCLIA [id number] [address] [place] POTASSIUM BLDon 06-02-2021 Potassium [Moles/Vol] 3.2 mmol/L Low 3.7-5.1 [facility] Comment on above: Order Comment: Speci men Type: BLOOD SPECIMEN Performed By: #### K 1 ####[facility]ORYCLIA [id number] [address] [place] Phosphate SerPl-mCncon 06-02 Phosphate [Mass/Vol] 2.1 mg/dL Low 2.7-4.8 [facility] Comment on above: Order Comment: Speci men Type: BLOOD SPECIMEN Performed By: #### 2 4321-2, 53122-1, 2777-1 ####[facility]ORYCLIA [id number] [address] Vancomycin random [Mass/Vol] on 06-02-2021 Vancomycin [Mass/Vol] 18.8 ug/mL Normal 10.0-20.0 [facility] Comment on above: Order Comment: Speci men Type: BLOOD SPECIMEN Result Comment: Refe rence ranges and high/low indicator flags are provided as general guidelines only. The treating physician must determine appropriate target levels/dosing based on the specific clinical situation. Performed By: #### 4 091-5 ####[facility]ORYCLIA [id number] [address] [place] ALLIED HEALTHon 06-01-2021 ALLIED HEALTH Normal [facility] ALLIED HEALTH Normal [facility] ALLIED HEALTH Normal [facility] ARTERIAL BLOOD GASESon 06-01 Base excess Calc (Bld) [Moles/Vol] 1 mmol/L Normal 0-2 [facility] Comment on above: Order Comment: Speci men Type: ARTERIAL BLOOD SPECIMEN Performed By: #### A LLBG ####[facility]ORYCLIA [id number] [address] OF [facility] Body temperature 97.52 [degF] Normal [facility] Comment on above: Order Comment: Speci men Type: ARTERIAL BLOOD SPECIMEN Performed By: #### A LLBG ####[facility]ORYCLIA [id number] [address] CALCIUM IONIZED, PH CORRECTED 1.13 mmol/L Normal 1.08-1.30 [facility] Comment on above: Order Comment: Speci men Type: ARTERIAL BLOOD SPECIMEN Performed By: #### A LLBG ####[facility]CLIA [id number] [address] Calcium.ionized (BldV) [Mass/Vol] 1.12 mmol/L Normal 1.08-1.30 [facility] Comment on above: Order Comment: Speci men Type: ARTERIAL BLOOD SPECIMEN Performed By: #### A LLBG ####[facility]ORYCLIA [id number] [address] OF [facility] Carboxyhemoglobin (BldA) [Mass fraction] 1.6 % Normal 0.0-2.0 [facility] Comment on above: Order Comment: Speci men Type: ARTERIAL BLOOD SPECIMEN Result Comment: Carb oxyhemoglobin Reference Range for Smokers: 2.0-8.0% Performed By: #### A LLBG ####[facility]ORYCLIA [id number] [address] CO2 (Bld) [Partial pressure] 41 mm Hg Normal 36-46 [facility] Comment on above: Order Comment: Speci men Type: ARTERIAL BLOOD SPECIMEN Performed By: #### A LLBG ####[facility]ORYCLIA [id number] [address] CO2 [Moles/Vol] 23.0 mmol/L Normal 22-28 [facility] Comment on above: Order Comment: Speci men Type: ARTERIAL BLOOD SPECIMEN Performed By: #### A LLBG ####[facility]ORYCLIA [id number] [address] CO2 adjusted to patient's actual temperature (Bld) [Partial pressure] 40 mmHg Normal 36-46 [facility] Comment on above: Order Comment: Speci men Type: ARTERIAL BLOOD SPECIMEN Performed By: #### A LLBG ####[facility]ORYCLIA [id number] [address] [place] FIO2 40 % Normal [facility] Comment on above: Order Comment: Speci men Type: ARTERIAL BLOOD SPECIMEN Performed By: #### A LLBG ####[facility]ORYCLIA [id number] [address] Glucose [Mass/Vol] 127 mg/dL High 60-105 [facility] Comment on above: Order Comment: Speci men Type: ARTERIAL BLOOD SPECIMEN Performed By: #### A LLBG ####[facility]ORYCLIA [id number] [address] HCO3 (Bld) [Moles/Vol] 25 mmol/L Normal 22-[address] [facility] Comment on above: Order Comment: Speci men Type: ARTERIAL BLOOD SPECIMEN Performed By: #### A LLBG ####[facility]ORYCLIA [id number] [address] [place] Hematocrit (Bld) [Volume fraction] 33.7 % Low 39.0-51.0 [facility] Comment on above: Order Comment: Speci men Type: ARTERIAL BLOOD SPECIMEN Performed By: #### A LLBG ####[facility]ORYCLIA [id number] [address] [place] Hemoglobin (Bld) [Mass/Vol] 10.9 g/dL Low 13.0-17.0 [facility] Comment on above: Order Comment: Speci men Type: ARTERIAL BLOOD SPECIMEN Performed By: #### A LLBG ####[facility]ORYCLIA [id number] [address] INHALED TIDAL VOLUME (ML) 500 Normal [facility] Comment on above: Order Comment: Speci men Type: ARTERIAL BLOOD SPECIMEN Performed By: #### A LLBG ####[facility]ORYCLIA [id number] [address] INVASIVE VENTILATOR MODE PRVC=Pressure Regulated Volume Control Normal [facility] Comment on above: Order Comment: Speci men Type: ARTERIAL BLOOD SPECIMEN Performed By: #### A LLBG ####[facility]ORYCLIA [id number] [address] Methemoglobin (Bld) [Mass fraction] % Normal 0.0-1.5 [facility] Comment on above: Order Comment: Speci men Type: ARTERIAL BLOOD SPECIMEN Performed By: #### A LLBG ####[facility]ORYCLIA [id number] [address] OF [place] O2 THERAPY Ventilator Normal [facility] Comment on above: Order Comment: Speci men Type: ARTERIAL BLOOD SPECIMEN Performed By: #### A LLBG ####[facility]ORYCLIA [id number] [address] Oxygen (Bld) [Partial pressure] 64 mm Hg Low 85-95 [facility] Comment on above: Order Comment: Speci men Type: ARTERIAL BLOOD SPECIMEN Performed By: #### A LLBG ####[facility]ORYCLIA [id number] [address] OF [facility] Oxygen adjusted to patient's actual temperature (Bld) [Partial pressure] 61.8 mmHg Low 85-95 [facility] Comment on above: Order Comment: Speci men Type: ARTERIAL BLOOD SPECIMEN Performed By: #### A LLBG ####[facility]ORYCLIA [id number] [address] OXYGEN SATURATION, ARTERIAL 94 % Low 95-98 [facility] Comment on above: Order Comment: Speci men Type: ARTERIAL BLOOD SPECIMEN Performed By: #### A LLBG ####[facility]ORYCLIA [id number] [address] Oxyhemoglobin (BldA) [Mass fraction] 92 % Low 95-98 [facility] Comment on above: Order Comment: Speci men Type: ARTERIAL BLOOD SPECIMEN Performed By: #### A LLBG ####[facility]ORYCLIA [id number] [address] PEEP/CPAP 5 cmH2O Normal [facility] Comment on above: Order Comment: Speci men Type: ARTERIAL BLOOD SPECIMEN Performed By: #### A LLBG ####[facility]ORYCLIA [id number] [address] [place] pH (Bld) 7.40 [pH] Normal 7.35-7.45 [facility] Comment on above: Order Comment: Speci men Type: ARTERIAL BLOOD SPECIMEN Performed By: #### A LLBG ####[facility]ORYCLIA [id number] [address] pH adjusted to patient's actual temperature (Bld) 7.41 Normal 7.35-7.45 [facility] Comment on above: Order Comment: Speci men Type: ARTERIAL BLOOD SPECIMEN Performed By: #### A LLBG ####[facility]ORYCLIA [id number] [address] Potassium [Moles/Vol] 3.1 mmol/L Low 3.5-5.0 [facility] Comment on above: Order Comment: Speci men Type: ARTERIAL BLOOD SPECIMEN Performed By: #### A LLBG ####[facility]ORYCLIA [id number] [address] SET VENTILATOR RESPIRATORY RATE (BPM) 18 BPM Normal [facility] Comment on above: Order Comment: Speci men Type: ARTERIAL BLOOD SPECIMEN Performed By: #### A LLBG ####[facility]ORYCLIA [id number] [address] Sodium [Moles/Vol] 141 mmol/L Normal 136-144 [facility] Comment on above: Order Comment: Speci men Type: ARTERIAL BLOOD SPECIMEN Performed By: #### A LLBG ####[facility]ORYCLIA [id number] [address] [place] BASE DEFICIT, ARTERIAL -1.0 mmol/L Normal -2-0 [facility] Comment on above: Order Comment: Speci men Type: ARTERIAL BLOOD SPECIMEN Performed By: #### A LLBG ####[facility]ORYCLIA [id number] [address] Body temperature 98.24 [degF] Normal [facility] Comment on above: Order Comment: Speci men Type: ARTERIAL BLOOD SPECIMEN Performed By: #### A LLBG ####[facility]ORYCLIA [id number] [address] CALCIUM IONIZED, PH CORRECTED 1.08 mmol/L Normal 1.08-1.30 [facility] Comment on above: Order Comment: Speci men Type: ARTERIAL BLOOD SPECIMEN Performed By: #### A LLBG ####[facility]ORYCLIA [id number] [address] Calcium.ionized (BldV) [Mass/Vol] 1.15 mmol/L Normal 1.08-1.30 [facility] Comment on above: Order Comment: Speci men Type: ARTERIAL BLOOD SPECIMEN Performed By: #### A LLBG ####[facility]ORYCLIA [id number] [address] Carboxyhemoglobin (BldA) [Mass fraction] 1.4 % Normal 0.0-2.0 [facility] Comment on above: Order Comment: Speci men Type: ARTERIAL BLOOD SPECIMEN Result Comment: Carb oxyhemoglobin Reference Range for Smokers: 2.0-8.0% Performed By: #### A LLBG ####[facility]ORYCLIA [id number] [address] CO2 (Bld) [Partial pressure] 59 mm Hg High 36-46 [facility] Comment on above: Order Comment: Speci men Type: ARTERIAL BLOOD SPECIMEN Performed By: #### A LLBG ####[facility]ORYCLIA [id number] [address] CO2 [Moles/Vol] 24.5 mmol/L Normal 22-28 [facility] Comment on above: Order Comment: Speci men Type: ARTERIAL BLOOD SPECIMEN Performed By: #### A LLBG ####[facility]ORYCLIA [id number] [address] CO2 adjusted to patient's actual temperature (Bld) [Partial pressure] 58 mmHg High 36-46 [facility] Comment on above: Order Comment: Speci men Type: ARTERIAL BLOOD SPECIMEN Performed By: #### A LLBG ####[facility]CLIA [id number] [address] FIO2 40 % Normal [facility] Comment on above: Order Comment: Speci men Type: ARTERIAL BLOOD SPECIMEN Performed By: #### A LLBG ####[facility]CLIA [id number] [address] Glucose [Mass/Vol] 128 mg/dL High 60-105 [facility] Comment on above: Order Comment: Speci men Type: ARTERIAL BLOOD SPECIMEN Performed By: #### A LLBG ####[facility]CLIA [id number] [address] HCO3 (Bld) [Moles/Vol] 26 mmol/L Normal 22-[address] [facility] Comment on above: Order Comment: Speci men Type: ARTERIAL BLOOD SPECIMEN Performed By: #### A LLBG ####[facility]CLIA [id number] [address] Hematocrit (Bld) [Volume fraction] 35.6 % Low 39.0-51.0 [facility] Comment on above: Order Comment: Speci men Type: ARTERIAL BLOOD SPECIMEN Performed By: #### A LLBG ####[facility]CLIA [id number] [address] Hemoglobin (Bld) [Mass/Vol] 11.5 g/dL Low 13.0-17.0 [facility] Comment on above: Order Comment: Speci men Type: ARTERIAL BLOOD SPECIMEN Performed By: #### A LLBG ####[facility]ORYCLIA [id number] [address] INHALED TIDAL VOLUME (ML) 500 Normal [facility] Comment on above: Order Comment: Speci men Type: ARTERIAL BLOOD SPECIMEN Performed By: #### A LLBG ####[facility]CLIA [id number] [address] INVASIVE VENTILATOR MODE PRVC=Pressure Regulated Volume Control Normal [facility] Comment on above: Order Comment: Speci men Type: ARTERIAL BLOOD SPECIMEN Performed By: #### A LLBG ####[facility]CLIA [id number] [address] Methemoglobin (Bld) [Mass fraction] % Normal 0.0-1.5 [facility] Comment on above: Order Comment: Speci men Type: ARTERIAL BLOOD SPECIMEN Performed By: #### A LLBG ####[facility]CLIA [id number] [address] O2 THERAPY Ventilator Normal [facility] Comment on above: Order Comment: Speci men Type: ARTERIAL BLOOD SPECIMEN Performed By: #### A LLBG ####[facility]CLIA [id number] [address] [place] Oxygen (Bld) [Partial pressure] 88 mm Hg Normal 85-95 [facility] Comment on above: Order Comment: Speci men Type: ARTERIAL BLOOD SPECIMEN Performed By: #### A LLBG ####[facility]ORYCLIA [id number] [address] [place] Oxygen adjusted to patient's actual temperature (Bld) [Partial pressure] 86.5 mmHg Normal 85-95 [facility] Comment on above: Order Comment: Speci men Type: ARTERIAL BLOOD SPECIMEN Performed By: #### A LLBG ####[facility]CLIA [id number] [address] [place] OXYGEN SATURATION, ARTERIAL 95 % Normal 95-98 [facility] Comment on above: Order Comment: Speci men Type: ARTERIAL BLOOD SPECIMEN Performed By: #### A LLBG ####[facility]CLIA [id number] [address] Oxyhemoglobin (BldA) [Mass fraction] 93 % Low 95-98 [facility] Comment on above: Order Comment: Speci men Type: ARTERIAL BLOOD SPECIMEN Performed By: #### A LLBG ####[facility]CLIA [id number] [address] PEEP/CPAP 5 cmH2O Normal [facility] Comment on above: Order Comment: Speci men Type: ARTERIAL BLOOD SPECIMEN Performed By: #### A LLBG ####[facility]CLIA [id number] [address] pH (Bld) 7.27 [pH] Low 7.35-7.45 [facility] Comment on above: Order Comment: Speci men Type: ARTERIAL BLOOD SPECIMEN Performed By: #### A LLBG ####[facility] [id number] [address] pH adjusted to patient's actual temperature (Bld) 7.28 Low 7.35-7.45 [facility] Comment on above: Order Comment: Speci men Type: ARTERIAL BLOOD SPECIMEN Performed By: #### A LLBG ####[facility]CLIA [id number] [address] Potassium [Moles/Vol] 3.3 mmol/L Low 3.5-5.0 [facility] Comment on above: Order Comment: Speci men Type: ARTERIAL BLOOD SPECIMEN Performed By: #### A LLBG ####[facility]CLIA [id number] [address] SET VENTILATOR RESPIRATORY RATE (BPM) 14 BPM Normal [facility] Comment on above: Order Comment: Speci men Type: ARTERIAL BLOOD SPECIMEN Performed By: #### A LLBG ####[facility]CLIA [id number] [address] Sodium [Moles/Vol] 141 mmol/L Normal 136-144 [facility] Comment on above: Order Comment: Speci men Type: ARTERIAL BLOOD SPECIMEN Performed By: #### A LLBG ####[facility]ORYCLIA [id number] [address] Bacteria CSF Culton 06-01-19 Bacteria identified Cx Nom (CSF) CULTURE, CSF: No growth 14 days GRAM STAIN: No organisms seen Rare Polymorphonuclear leukocytes Moderate Red Blood Cells Gram stain performed on cytospun specimen. Normal [facility] Comment on above: Performed By: #### 6 06-4 ####[facility]CL[facility] [id number] [address] Bacteria Spec Resp Culton Bacteria identified Respiratory culture Nom (Unsp spec) CULTURE, RESPIRATORY: No growth 2 days GRAM STAIN: No organisms seen No Polymorphonuclear Leukocytes Normal [facility] Comment on above: Performed By: #### 3 2355-0 ####[facility]CL[facility] [id number] [address] [place] Basic metabolic 2000 panelon 06-01-2021 Anion gap [Moles/Vol] 8 mmol/L Low 9-18 [facility] Comment on above: Order Comment: Speci men Type: BLOOD SPECIMEN Performed By: #### 2 4321-2, , 2776-05 ####[facility]ORYCLIA [id number] [address] [place] Calcium [Mass/Vol] 7.8 mg/dL Low 8.5-10.2 [facility] Comment on above: Order Comment: Speci men Type: BLOOD SPECIMEN Performed By: #### 2 4321-2, , 2776-05 ####[facility]CLIA [id number] [address] STATES OF [facility] Chloride [Moles/Vol] 109 mmol/L High 97-105 [facility] Comment on above: Order Comment: Speci men Type: BLOOD SPECIMEN Performed By: #### 2 4321-2, , 2776-05 ####[facility]ORYCLIA [id number] [place], [place] [address] [place] [address] CO2 [Moles/Vol] 26 mmol/L Normal 22-30 [facility] Comment on above: Order Comment: Speci men Type: BLOOD SPECIMEN Performed By: #### 2 4321-2, , 2776-05 ####[facility]CL[facility] [id number] [address] STATES OF [facility] Creatinine [Mass/Vol] 0.82 mg/dL Normal 0.73-1.22 [facility] Comment on above: Order Comment: Speci men Type: BLOOD SPECIMEN Performed By: #### 2 4321-2, , 2776-05 ####[facility]ORYCLIA [id number] [address] GFR/1.73 sq M.predicted MDRD (S/P/Bld) [Vol rate/Area] mL/min/{1.73_m2} Normal [facility] Comment on above: [...] Performed By: #### 2 4321-2, , 2776-05 ####[facility]CLIA [id number] [address] OF [facility] Glucose [Mass/Vol] 105 mg/dL High 74-99 [facility] Comment on above: Order Comment: Speci men Type: BLOOD SPECIMEN Result Comment: The [place] [employer] (ADA) provides guidance for cutoff [...] Standards of Medical Care in Diabetes 2016, [place] [employer]. Diabetes Care. 2016.39(Suppl 1). Performed By: #### 2 4321-2, , 2776-05 ####[facility]ORYCL[facility] [id number] [address] STATES OF [facility] Potassium [Moles/Vol] 3.8 mmol/L Normal 3.7-5.1 [facility] Comment on above: Order Comment: Speci men Type: BLOOD SPECIMEN Performed By: #### 2 1-2, , 2776-05 ####[facility]CLIA [id number] [address] Sodium [Moles/Vol] 143 mmol/L Normal 136-144 [facility] Comment on above: Order Comment: Speci men Type: BLOOD SPECIMEN Performed By: #### 2 1-2, , 2776-05 ####[facility]CLIA [id number] [address] Urea nitrogen [Mass/Vol] 15 mg/dL Normal 9-24 [facility] Comment on above: Order Comment: Speci men Type: BLOOD SPECIMEN Performed By: #### 2 4321-2, , 2776-05 ####[facility]CL[facility] [id number] [address] CBC panel Auto (Bld)on 06-01 Erythrocyte distribution width (RBC) [Ratio] 15.4 % High 11.5-15.0 [facility] Comment on above: Order Comment: Speci men Type: BLOOD SPECIMEN Performed By: #### 5 8410-2 ####[facility]CL[facility] [id number] [address] Hematocrit (Bld) [Volume fraction] 38.4 % Low 39.0-51.0 [facility] Comment on above: Order Comment: Speci men Type: BLOOD SPECIMEN Performed By: #### 5 8410-2 ####[facility]CL[facility] [id number] [address] Hemoglobin (Bld) [Mass/Vol] 11.1 g/dL Low 13.0-17.0 [facility] Comment on above: Order Comment: Speci men Type: BLOOD SPECIMEN Performed By: #### 5 8410-2 ####[facility]ORYCLIA [id number] [address] MCH (RBC) [Entitic mass] 26.9 pg Normal 26.0-34.0 [facility] Comment on above: Order Comment: Speci men Type: BLOOD SPECIMEN Performed By: #### 5 8410-2 ####[facility]CLIA [id number] [address] MCHC (RBC) [Mass/Vol] 28.9 g/dL Low 30.5-36.0 [facility] Comment on above: Order Comment: Speci men Type: BLOOD SPECIMEN Performed By: #### 5 8410-2 ####[facility]ORYCL[facility] [id number] [address] MCV (RBC) [Entitic vol] 93.2 fL Normal 80.0-100.0 [facility] Comment on above: Order Comment: Speci men Type: BLOOD SPECIMEN Performed By: #### 5 8410-2 ####[facility]ORYCLIA [id number] [address] Nucleated RBC (Bld) [#/Vol] 10*3/uL Normal <0.01 [facility] Comment on above: Order Comment: Speci men Type: BLOOD SPECIMEN Performed By: #### 5 8410-2 ####[facility]CLIA [id number] [address] Platelet mean volume (Bld) [Entitic vol] 10.2 fL Normal 9.0-12.7 [facility] Comment on above: Order Comment: Speci men Type: BLOOD SPECIMEN Performed By: #### 5 8410-2 ####[facility]ORYCLIA [id number] [address] OF [facility] Platelets (Bld) [#/Vol] 231 10*3/uL Normal 150-400 [facility] Comment on above: Order Comment: Speci men Type: BLOOD SPECIMEN Performed By: #### 5 8410-2 ####[facility]ORYCLIA [id number] [address] STATES [facility] RBC (Bld) [#/Vol] 4.12 10*6/uL Low 4.20-6.00 [facility] Comment on above: Order Comment: Speci men Type: BLOOD SPECIMEN Performed By: #### 5 8410-2 ####[facility] [facility] LABORATORYCLIA [id number] [address] OF [facility] WBC (Bld) [#/Vol] 10.99 10*3/uL Normal 3.70-11.00 [facility] Comment on above: Order Comment: Speci men Type: BLOOD SPECIMEN Performed By: #### 5 8410-2 ####[facility]ATORYCLIA [id number] [address] OF [facility] CONSULT PROGon 06-01-2021 CONSULT PROG Normal [facility] CSF MANUAL DIFFon 06-01-2021 DIF TTL, CSF 100 cells counted Normal [facility] Comment on above: Order Comment: Speci men Type: CEREBROSPINAL FLUID Performed By: #### 3 4563-7, [id number] ####[facility]ATORYCLIA [id number] [address] [place] LYMPH%, CSF 11 % Low 50-90 [facility] Comment on above: Order Comment: Speci men Type: CEREBROSPINAL FLUID Performed By: #### 3 4563-7, [id number] ####[facility]ATORYCLIA [id number] [address] MONO%, CSF 10 % Normal 10-50 [facility] Comment on above: Order Comment: Speci men Type: CEREBROSPINAL FLUID Performed By: #### 3 4563-7, [id number] ####[facility]ATORYCLIA [id number] [address] NEUT%, CSF 79 % High 0-3 [facility] Comment on above: Order Comment: Speci men Type: CEREBROSPINAL FLUID Performed By: #### 3 4563-7, [id number] ####[facility]ATORYCLIA [id number] [address] BRAIN WO IVCONon 06-01-19 CT BRAIN WO IVCON Normal [facility] Cell count panel (CSF)on Clarity (CSF) Clear Normal Clear [facility] Comment on above: Order Comment: Speci men Type: CEREBROSPINAL FLUID Performed By: #### 3 4563-7, [id number] ####[facility]ATORYCLIA [id number] [address] Clarity (Unsp spec) Not Indicated Normal Clear [facility] Comment on above: Order Comment: Speci men Type: CEREBROSPINAL FLUID Performed By: #### 3 4563-7, [id number] ####[facility]ATORYCLIA [id number] [address] Color (CSF) Colorless Normal Colorless [facility] Comment on above: Order Comment: Speci men Type: CEREBROSPINAL FLUID Performed By: #### 3 4563-7, [id number] ####[facility]ORYCLIA [id number] [address] Color (Spun CSF) Not Indicated Normal Colorless [facility] Comment on above: Order Comment: Speci men Type: CEREBROSPINAL FLUID Performed By: #### 3 4563-7, [id number] ####[facility]ATORYCLIA [id number] [address] CSF TUBE NUMBER Sterile Container Normal [facility] Comment on above: Order Comment: Speci men Type: CEREBROSPINAL FLUID Performed By: #### 3 4563-7, [id number] ####[facility]ATORYCLIA [id number] [address] RBC Manual cnt (CSF) [#/Vol] 171 cells/uL High 0-5 [facility] Comment on above: Order Comment: Speci men Type: CEREBROSPINAL FLUID Performed By: #### 3 4563-7, [id number] ####[facility] LAB[facility]ATORYCLIA [id number] [address] WBC Manual cnt (CSF) [#/Vol] 5 cells/uL Normal 0-5 [facility] Comment on above: Order Comment: Speci men Type: CEREBROSPINAL FLUID Performed By: #### 3 4563-7, [id number] ####[facility]ATORYCLIA [id number] [address] FUNGAL CULTUREon 06-01-2021 FUNGAL CULTURE CULTURE, FUNGAL: No Fungus isolated after 28 days Normal [facility] Comment on above: Performed By: #### F CUL ####[facility] LAB[facility]ATORYCLIA [id number] [address] Glucose CSF-mCncon 2 Glucose (CSF) [Mass/Vol] 78 mg/dL High 40-70 [facility] Comment on above: Order Comment: Speci men Type: CEREBROSPINAL FLUID Result Comment: Lumb ar CSF glucose values of healthy patients are approximately 60% of the plasma values and must always be compared with a concurrently measured plasma value for adequate clinical interpretation.References: 1. Glucose HK (GLUC3) [package insert V 12.0 Citizen Of [place]]. [employer], [place], [place]. September 2015. 2. Michelle Moore, Loki H. (2015). Chapter 7: Glucose and Lactate. F. Irina rose al.(eds.), Cerebrospinal Fluid in Clinical Neurology. [place]: [employer]. Performed By: #### 2 251-1, 2157-3 ####[facility] LABORATORYCLIA [id number] [place], [place] [address] [place] [address] [place] HERPES SIMPLEX CSFon 022 HERPES SIMPLEX CSF HSV PCR SPEC SOURCE: Cerebrospinal Fluid HSV-1: Negative for Herpes Simplex Virus Type 1 by PCR HSV-2: Negative for Herpes Simplex Virus Type 2 by PCR Normal [facility] Comment on above: Performed By: #### H [facility] ####[facility] LAB REFERENCE LABCLIA [id number] [id number] [address] [place] Lactate (Bld) [Moles/Vol]on 06-01-2021 Lactate [Moles/Vol] 0.5 mmol/L Normal 0.5-2.2 [facility] Comment on above: Order Comment: Speci men Type: BLOOD SPECIMEN Performed By: #### 3 2693-4 ####[facility] LAB[facility]ATORYCLIA [id number] [address] [place] MENINGITIS ENCEPHALITIS BIOF IREon 06-01-2021 MENINGITIS ENCEPHALITIS BIOFIRE Negative Normal [facility] Comment on above: Order Comment: Speci men Type: CEREBROSPINAL FLUID Performed By: #### M GEBF ####[facility]ENTERCLIA [id number], [place] [address] Magnesium SerPl-mCncon 06-01 Magnesium [Mass/Vol] 2.2 mg/dL Normal 1.7-2.3 [facility] Comment on above: Order Comment: Speci men Type: BLOOD SPECIMEN Performed By: #### 2 4321-2, 00329-1, 2777-1 ####[facility]ATORYCLIA [id number] [address] [place] Microorganism Spec Culton Microorganism identified Cx Nom (Unsp spec) CULTURE, AFB: No Acid Fast Bacilli isolated after 42 days AFB STAIN: No acid fast bacilli seen by flurochrome stain Normal [facility] Comment on above: Performed By: #### 1 1475-1 ####[facility] LABORATORYCLIA [id number] [address] PROCALCITONIN (LAB)on 2021 Procalcitonin [Mass/Vol] 0.08 ng/mL Normal <0.09 [facility] Comment on above: Order Comment: Speci men Type: BLOOD SPECIMEN Result Comment: For a guided interpretation of test results, please visit the [facility] in Procalcitonin Calculator, [email or web address]. Performed By: #### P ROCAL ####[facility] LABORATORYCLIA [id number] [address] OF [facility] Phosphate SerPl-[facility] Centeron [facility] Phosphate [Mass/Vol] 3.5 mg/dL Normal 2.7-4.8 [facility] Comment on above: Order Comment: Speci men Type: BLOOD SPECIMEN Performed By: #### 2 4321-2, 62667-7, 2777-1 ####[facility]ATORYCLIA [id number] [address] Prot CSF-ncon 06-01-2021 Protein (CSF) [Mass/Vol] 52 mg/dL High 15-45 [facility] Comment on above: Order Comment: Speci men Type: CEREBROSPINAL FLUID Performed By: #### 2 342-4, 2880-3 ####[facility]ATORYCLIA [id number] [address] [facility] Vancomycin random [Mass/Vol] on 06-01-2021 Vancomycin [Mass/Vol] 14.6 ug/mL Normal 10.0-20.0 [facility] Comment on above: Order Comment: Speci men Type: BLOOD SPECIMEN Result Comment: Refe rence ranges and high/low indicator flags are provided as general guidelines only. The treating physician must determine appropriate target levels/dosing based on the specific clinical situation. Performed By: #### 4 091-5 ####[facility] LABORATORYCLIA [id number] [address] [facility] XR CHEST 1V FRONTALon 01-26- 2022 XR CHEST 1V FRONTAL Normal [facility] XR CHEST 1V FRONTAL Normal [facility] XR NECK SOFT TISSUE 2V AP/LA Ton 06-01-2021 XR NECK SOFT TISSUE 2V AP/LAT Normal [facility] XR SKULL 2V AP/LATon 022 XR SKULL 2V AP/LAT Normal [facility] ALLIED HEALTHon 05-31-2021 ALLIED HEALTH HNO ID: [id number] Author: Christina Lynne RT(R) Service: Radiology Author Type: Technologist Type: Allied Health Filed: 05/31/2021 5:48 PM Note Text: MRI tomorrow per RN. Normal [facility] ALLIED HEALTH Normal [facility] ALLIED HEALTH Normal [facility] HEALTH Normal [facility] ANES POSTPROC EVALon 022 ANES POSTPROC EVAL Normal [facility] ANES PRE-OPon 05-31-2021 ANES PRE-OP Normal [facility] BRIEF OP NOTon 05-31-2021 BRIEF OP NOT Normal [facility] Bacteria Bld Culton 05-31-19 22 Bacteria identified Cx Nom (Bld) CULTURE, BLOOD: No growth 5 days Normal [facility] Comment on above: Performed By: #### 6 00-7 ####[facility] LABORATORYCLIA [id number] [address] [place] Bacteria CSF Culton 05-31-19 22 Bacteria identified Cx Nom (CSF) CULTURE, CSF: No growth 14 days GRAM STAIN: No organisms seen Rare Polymorphonuclear leukocytes Rare Red Blood Cells Gram stain performed on cytospun specimen. Normal [facility] Comment on above: Performed By: #### 6 06-4 ####[facility] LABORATORYCLIA [id number] [place] [address] [place] Basic metabolic 2000 panelon 05-31-2021 Anion gap [Moles/Vol] 9 mmol/L Normal 9-18 [facility] Comment on above: Order Comment: Speci men Type: BLOOD SPECIMEN Performed By: #### 2 777-1, 42889-3, 52105-9 ####[facility]ATORYCLIA [id number] [address] OF [facility] Calcium [Mass/Vol] 8.2 mg/dL Low 8.5-10.2 [facility] Comment on above: Order Comment: Speci men Type: BLOOD SPECIMEN Performed By: #### 2 777-1, 56980-5, ####[facility]ORATORYCLIA [id number] [address] Chloride [Moles/Vol] 110 mmol/L High 97-105 [facility] Comment on above: Order Comment: Speci men Type: BLOOD SPECIMEN Performed By: #### 2 777-1, 55651-2, ####[facility]ATORYCLIA [id number] [address] CO2 [Moles/Vol] 27 mmol/L Normal 22-30 [facility] Comment on above: Order Comment: Speci men Type: BLOOD SPECIMEN Performed By: #### 2 777-1, 42157-1, ####[facility]ATORYCLIA [id number] [address] STATES [facility] Creatinine [Mass/Vol] 0.85 mg/dL Normal 0.73-1.22 [facility] Comment on above: Order Comment: Speci men Type: BLOOD SPECIMEN Performed By: #### 2 777-1, 72509-7, ####[facility]ATORYCLIA [id number] [address] [place] GFR/1.73 sq M.predicted MDRD (S/P/Bld) [Vol rate/Area] mL/min/{1.73_m2} Normal [facility] Comment on above: [...] GFR. Performed By: #### 2 777-1, , ####[facility] LABORATORYCLIA [id number] [place] [address] [place] Glucose [Mass/Vol] 111 mg/dL High 74-99 [facility] Comment on above: Order Comment: Speci men Type: BLOOD SPECIMEN Result Comment: The [place] Diabetes Association (ADA) provides guidance for cutoff [...] Standards of Medical Care in Diabetes 2016, [place] [employer]. Diabetes Care. 2016.39(Suppl 1). Performed By: #### 2 777-1, , ####[facility]ORATORYCLIA [id number] [place] [address] [place] Potassium [Moles/Vol] 3.7 mmol/L Normal 3.7-5.1 [facility] Comment on above: Order Comment: Speci men Type: BLOOD SPECIMEN Performed By: #### 2 777-1, , ####[facility] LABORATORYCLIA [id number] [place] [address] [place] Sodium [Moles/Vol] 146 mmol/L High 136-144 [facility] Comment on above: Order Comment: Speci men Type: BLOOD SPECIMEN Performed By: #### 2 777-1, , ####[facility]ATORYCLIA [id number] [address] Urea nitrogen [Mass/Vol] 16 mg/dL Normal 9-24 [facility] Comment on above: Order Comment: Speci men Type: BLOOD SPECIMEN Performed By: #### 2 777-1, 78356-9, 94057-3 ####[facility] LABORATORYCLIA [id number] [address] [place] CASE MGT INIT ASSESon 2021 CASE MGT INIT ASSES Normal [facility] CBC W Auto Differential pane l (Bld)on 05-31-2021 Basophils (Bld) [#/Vol] 0.04 10*3/uL Normal <0.11 [facility] Comment on above: Order Comment: Speci men Type: BLOOD SPECIMEN Performed By: #### 5 7021-8 ####[facility]ORATORYCLIA [id number] [address] Basophils/100 WBC (Bld) 0.5 % Normal [facility] Comment on above: Order Comment: Speci men Type: BLOOD SPECIMEN Performed By: #### 5 7021-8 ####[facility]ATORYCLIA [id number] [address] Differential cell count method Nom (Bld) Auto Normal [facility] Comment on above: Order Comment: Speci men Type: BLOOD SPECIMEN Performed By: #### 5 7021-8 ####[facility]ATORYCLIA [id number] [address] [place] Eosinophils (Bld) [#/Vol] 0.27 10*3/uL Normal <0.46 [facility] Comment on above: Order Comment: Speci men Type: BLOOD SPECIMEN Performed By: #### 5 7021-8 ####[facility]ORATORYCLIA [id number] [address] [place] Eosinophils/100 WBC (Bld) 3.3 % Normal [facility] Comment on above: Order Comment: Speci men Type: BLOOD SPECIMEN Performed By: #### 5 7021-8 ####[facility]ORATORYCLIA [id number] [address] Erythrocyte distribution width (RBC) [Ratio] 15.4 % High 11.5-15.0 [facility] Comment on above: Order Comment: Speci men Type: BLOOD SPECIMEN Performed By: #### 5 7021-8 ####[facility]ORATORYCLIA [id number] [address] Hematocrit (Bld) [Volume fraction] 37.9 % Low 39.0-51.0 [facility] Comment on above: Order Comment: Speci men Type: BLOOD SPECIMEN Performed By: #### 5 7021-8 ####[facility]ORATORYCLIA [id number] [address] Hemoglobin (Bld) [Mass/Vol] 11.5 g/dL Low 13.0-17.0 [facility] Comment on above: Order Comment: Speci men Type: BLOOD SPECIMEN Performed By: #### 5 7021-8 ####[facility] LABORATORYCLIA [id number] [address] IMMATURE GRAN % 0.4 % Normal [facility] Comment on above: Order Comment: Speci men Type: BLOOD SPECIMEN Performed By: #### 5 7021-8 ####[facility]ORATORYCLIA [id number] [address] IMMATURE GRAN ABS 0.03 k/uL Normal <0.10 [facility] Comment on above: Order Comment: Speci men Type: BLOOD SPECIMEN Performed By: #### 5 7021-8 ####[facility]ATORYCLIA [id number] [address] Lymphocytes (Bld) [#/Vol] 1.90 10*3/uL Normal 1.00-4.00 [facility] Comment on above: Order Comment: Speci men Type: BLOOD SPECIMEN Performed By: #### 5 7021-8 ####[facility]ORYCLIA [id number] [address] Lymphocytes/100 WBC (Bld) 23.0 % Normal [facility] Comment on above: Order Comment: Speci men Type: BLOOD SPECIMEN Performed By: #### 5 7021-8 ####[facility]ORATORYCLIA [id number] [address] MCH (RBC) [Entitic mass] 28.0 pg Normal 26.0-34.0 [facility] Comment on above: Order Comment: Speci men Type: BLOOD SPECIMEN Performed By: #### 5 7021-8 ####[facility] LABORATORYCLIA [id number] [address] MCHC (RBC) [Mass/Vol] 30.3 g/dL Low 30.5-36.0 [facility] Comment on above: Order Comment: Speci men Type: BLOOD SPECIMEN Performed By: #### 5 7021-8 ####[facility] LABORATORYCLIA [id number] [address] MCV (RBC) [Entitic vol] 92.4 fL Normal 80.0-100.0 [facility] Comment on above: Order Comment: Speci men Type: BLOOD SPECIMEN Performed By: #### 5 7021-8 ####[facility] LABORATORYCLIA [id number] [address] Monocytes (Bld) [#/Vol] 0.60 10*3/uL Normal <0.87 [facility] Comment on above: Order Comment: Speci men Type: BLOOD SPECIMEN Performed By: #### 5 7021-8 ####[facility] LABORATORYCLIA [id number] [address] Monocytes/100 WBC (Bld) 7.3 % Normal [facility] Comment on above: Order Comment: Speci men Type: BLOOD SPECIMEN Performed By: #### 5 7021-8 ####[facility] LABORATORYCLIA [id number] [place] [address] [place] Neutrophils (Bld) [#/Vol] 5.41 10*3/uL Normal 1.45-7.50 [facility] Comment on above: Order Comment: Speci men Type: BLOOD SPECIMEN Performed By: #### 5 7021-8 ####[facility] LABORATORYCLIA [id number] [address] Neutrophils/100 WBC (Bld) 65.5 % Normal [facility] Comment on above: Order Comment: Speci men Type: BLOOD SPECIMEN Performed By: #### 5 7021-8 ####[facility]ATORYCLIA [id number] [address] Nucleated RBC (Bld) [#/Vol] 10*3/uL Normal <0.01 [facility] Comment on above: Order Comment: Speci men Type: BLOOD SPECIMEN Performed By: #### 5 7021-8 ####[facility]ATORYCLIA [id number] [address] Nucleated RBC/100 WBC (Bld) [Ratio] 0.0 /100 WBC Normal 0.0 [facility] Comment on above: Order Comment: Speci men Type: BLOOD SPECIMEN Performed By: #### 5 7021-8 ####[facility]ATORYCLIA [id number] [address] Platelet mean volume (Bld) [Entitic vol] 9.8 fL Normal 9.0-12.7 [facility] Comment on above: Order Comment: Speci men Type: BLOOD SPECIMEN Performed By: #### 5 7021-8 ####[facility]ATORYCLIA [id number] [address] [place] Platelets (Bld) [#/Vol] 251 10*3/uL Normal 150-400 [facility] Comment on above: Order Comment: Speci men Type: BLOOD SPECIMEN Performed By: #### 5 7021-8 ####[facility]ATORYCLIA [id number] [address] RBC (Bld) [#/Vol] 4.10 10*6/uL Low 4.20-6.00 [facility] Comment on above: Order Comment: Speci men Type: BLOOD SPECIMEN Performed By: #### 5 7021-8 ####[facility]ATORYCLIA [id number] [address] [place] WBC (Bld) [#/Vol] 8.25 10*3/uL Normal 3.70-11.00 [facility] Comment on above: Order Comment: Speci men Type: BLOOD SPECIMEN Performed By: #### 5 7021-8 ####[facility]ATORYCLIA [id number] [address] CONSULTon 05-31-2021 CONSULT Normal [facility] CONSULT Normal [facility] CONSULT Normal [facility] CT BRAIN WO IVCONon 05-31-19 CT BRAIN WO IVCON Normal [facility] CT BRAIN WO IVCON Normal [facility] CT CHEST WO IVCONon 05-31-19 CT CHEST WO IVCON Normal [facility] Cortis SerPl-mCncon 05-31-19 Cortisol [Mass/Vol] 31.0 ug/dL High AM: 5.3-22.5, PM: 3.4-16.8 [facility] Comment on above: Order Comment: Speci men Type: BLOOD SPECIMEN Result Comment: Prov ided reference range is from 6-10 AM sample collection time.Cortisol Reference Range: 6-10 AM = 4.8-19.5 ug/dL, 4-8 PM = 2.5-11.9 ug/dL Performed By: #### 2 143-6, 3016-3 ####[facility] LABORATORYCLIA [id number] [address] [place] Cryptoc Ag Spec Ql LAon 05-08 Cryptococcus sp Ag LA Ql (Unsp spec) Negative Normal [facility] Comment on above: Performed By: #### 4 3228-6 ####[facility] LABORATORYCLIA [id number] [address] [place] HISTORY PHYSICALon 01-25-202 2 HISTORY PHYSICAL Normal [facility] Magnesium SerPl-mCncon 05-31 Magnesium [Mass/Vol] 2.2 mg/dL Normal 1.7-2.3 [facility] Comment on above: Order Comment: Speci men Type: BLOOD SPECIMEN Performed By: #### 2 777-1, 62660-3, 05868-3 ####[facility] LABORATORYCLIA [id number] [address] OF [facility] NURSING PROGon 05-31-2021 NURSING PROG Normal [facility] NUTRITIONon 05-31-2021 NUTRITION Normal [facility] OPERATIVE NOon 05-31-2021 OPERATIVE NO Normal [facility] Phosphate SerPl-mCncon 05-31 Phosphate [Mass/Vol] 3.3 mg/dL Normal 2.7-4.8 [facility] Comment on above: Order Comment: Speci men Type: BLOOD SPECIMEN Performed By: #### 2 777-1, 57424-0, ####[facility] LABORATORYCLIA [id number] [address] STAPH AUREUS PCRon 2 S. aureus and MRSA panel MEGAN+probe (Nose) Normal Negative [facility] Comment on above: Order Comment: Speci men Type: SWAB OF INTERNAL NOSE Result Comment: Nega tive for Staphylococcus aureus by PCR.Negative for MRSA by PCR Performed By: #### S APCR ####[facility] LABORATORYCLIA [id number] [address] [place] TSH SerPl-aCncon 05-31-2021 TSH Qn 0.829 m[IU]/L Normal 0.270-4.200 [facility] Comment on above: Order Comment: Speci men Type: BLOOD SPECIMEN Performed By: #### 2 143-6, 3016-3 ####[facility]ATORYCLIA [id number] [address] [place] XR CHEST 1V FRONTALon 2021 XR CHEST 1V FRONTAL Normal [facility] XR CHEST 1V FRONTAL Normal [facility] Blood Cultureon 05-30-2021 Bacteria identified Cx Nom (Bld) Culture Result - No growth 5 days Normal [facility] Comment on above: Performed By: #### C AD #### [facility] [address] [place] [address] [facility] [address] [place] [address] Bacteria identified Cx Nom (Bld) Sp. Request/Comment: - 8.2MLS Culture Result - No growth 5 days Normal [facility] Comment on above: Performed By: #### C AD #### [facility] [address] [place] [id number] [place] [address] C-Reactive Proteinon 022 C-Reactive Protein 1.7 mg/dL High <0.9 [facility] Comment on above: Performed By: #### C RP ####[facility] [address] [place] [id number] CNDSon 05-30-2021 CNDS HNO ID: [id number] Author: Columba Carroll PA-C Service: Hospital Medicine Author Type: Physician Cash Grain Grower Type: Discharge Summary Filed: 05/30/2021 12:49 PM Note Text: ----- Attestation signed by Ayaka Menijvar MD at 06/01/2021 12:53 PM Attending Note [...] Team: Attending Provider: Ayaka Menjivar MD Physician Cash Grain Grower: Columba Carroll PA-C Consulting: Lilo Mendoza MD [...] consulted. Neurology suggested empiric abx coverage for AUDIOMETRIST infection Rocephin and Vancomycin was started. Tele-neuro also suggested an MRI brain be obtained prior to LP to check HYDRO ELECTRIC STATION OPERATOR shunt and decrease risk of herniation in neurosurgery capable facility. Transfer to [facility] requested. Sepsis lactate was 1.3. ABG showed pO2 67.8, placed patient on 2L NC.Follow B1, B12, and RPR pending. Transitions of Care Critical Issues: - patient transferred for [facility] for management of possible AUDIOMETRIST infection and herniation. LABS AND PROCEDURES PENDING [...] intravenously q 1 (more content not included)... Normal [facility] CONSULTon 05-30-2021 CONSULT HNO ID: [id number] Author: Juan Carlos Mckenzie MD Service: Infectious [...] vertebrae with counting from the craniocervical junction. Auto Body Customizer: PSCB Transcribe Date/Time: May 29 2021 8:59P Dictated by : CARLOS YOUNGER MD This examination was interpreted and the report reviewed and electronically signed by: CARLOS YOUNGER MD on May 29 2021 9:14PM EST ? CT CERVICAL SPINE WO (more content not included)... Normal [facility] CONSULT HNO ID: [id number] Author: Lilo Mendoza MD Service: Neurology General Author Type: Physician Type: Consults Filed: 05/30/2021 10:56 AM Note Text: [facility] TeleNeurology Consult Note Patient seen using [facility]. Recommendations are placed in the chart. Please review. For questions after hours, when teleneurologist is not available, for BISHOP: Please Page [phone] for the [facility]rology Group from 12pm to 8Am Admitting Provider/Consulted by:Hermes Roca MD Time of Note:05/30/2021 Patient Name:Andrew Sifuentes Admit Date:05/29/2021 Hospital Day:0 CC: altered mental status History of Present Illness: Andrew Sifuentes is a 71 year old unknown handed male with limited information about past medical history including venous insufficiency s/p EVLT, hydrocepalus s/p HYDRO ELECTRIC STATION OPERATOR shunt in 1987 with multiple revisions and [...] Date , Taking? , Authorizing Provider [facility]heila [facility]rickSymmes HospitalKari Lewis Medication Calcium-Cholecalciferol, D3, (CALCIUM 500 + [...] Reflexes Right Lef (more content not included)... [facility] CONSULT PROGon 05-30-2021 CONSULT PROG [facility] CONSULT PROG HNO ID: [id number] Author: Shannon Gutierres RPh Service: Pharmacy Author Type: Pharmacist Type: Consult Progress Note Filed: 05/30/2021 2:35 PM Note Text: PHARMACY VANCOMYCIN DOSING NOTE Patient Name: Andrew Sifuentes Admission Date: 05/29/2021 Date of Consult: 05/30/2021 Time of Consult: 2:32 PM Indication: possible AUDIOMETRIST infection Goal Range: 15-20 mcg/mL RECOMMENDATIONS/PLAN: Pharmacy [...] any questions, please contact inpatient pharmacy at [phone]. Age: [age] year old Allergies: ALLERGIES Allergen [...] Vancomycin Levels: No results found for: IMANI Gutierres, [facility] Creatinineon 05-30-2021 Creatinine [Mass/Vol] 0.86 mg/dL Normal 0.73-1.22 [facility] Comment on above: Performed By: #### C RET1 ####[facility] Foxhgodhhp0244 [phone] eGFR- Amer. >60 [facility] Comment on above: Performed By: #### C RET1 ####[facility] Auootavjhk5446 [address]5160 eGFR-All Other Races >60 [facility] Comment on above: Result Comment: eGFR (Estimated [...] at [email or web address]. Performed By: #### C RET1 ####[facility] [address] [place] [phone] Crypto Antigen Deton 022 Crypto Antigen Det Sp. Request/Comment: - SST Test Result - Duplicate request Account Credited [facility] Comment on above: Performed By: #### C AD #### [facility] [address] [place] [address] [facility] [address] [place], [place] [address] Crypto Antigen Det Sp. Request/Comment: - SST Test Result - Cryptococcal antigen detection result: Negative By latex agglutination [facility] Comment on above: Performed By: #### C AD #### [facility] [address] [place] [address] [facility] [address] [place], [place] [address] ED NOTEon 05-30-2021 ED NOTE HNO ID: [id number] Author: Aletha Lopez RN Service: ? Author Type: Registered Nurse Type: ED Notes Filed: 05/29/2021 11:16 PM Note Text: Patient changed for incontinent urine, labs redrawn and sent. Patient aware of plan to be admitted and agrees with plan Normal [facility] HISTORY PHYSICALon HISTORY PHYSICAL Normal [facility] HISTORY PHYSICAL HNO ID: [id number] Author: Hermes Roca MD Service: Hospital Medicine Author Type: Physician Type: HANDP Filed: 05/30/2021 1:03 AM Note Text: DEPARTMENT OF HOSPITAL MEDICINE HISTORY AND PHYSICAL EXAM SERVICE DATE: 05/29/2021 SERVICE TIME: 11:18 PM Primary Care Physician: Mateus Burris MD NIGHT AND WEEKEND COVERAGE: Please page [phone] until 7:30am this morning. After 7:30am please check the treatment team banner and page the appropriate service. 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 Normal [facility] Magnesium SerPl-mCncon 05-30 Magnesium [Mass/Vol] 2.5 mg/dL High 1.7-2.3 [facility] Comment on above: Order Comment: Speci men Type: BLOOD SPECIMEN Performed By: #### 1 9123-9, 2777-1 ####[facility]ORY[facility] [id number] [place] [address] [place] NURSING PROGon 05-30-2021 NURSING PROG HNO ID: [id number] Author: Precious Cervantes RN Service: ? Author Type: Registered Nurse Type: Nursing Progress Note Filed: 05/30/2021 11:26 AM Note Text: Nursing Progress Note Patient Name: Andrew Sifuentes Patient [facility]0217/[id number] Daily Note: 0700- Report received from retail event assistant RN, patient resting in bed at this time, call light within reach, bed low and locked. Asked the patient to state his name because retail event assistant RN was unable to complete his admission r/t mentation. Sister Triny stated that the patient is normally AANDOx3 at baseline. I had to sternal rubbed the patient in order to get him to respond. Stated his name was Eric and went back to sleep. 924- Attempted to assess the patient and administer [...] This note was completed by: Precious Cervantes [facility] NURSING PROG HNO ID: [id number] Author: Lyubov Day RN Service: ? Author Type: Registered Nurse Type: Nursing Progress Note Filed: 05/30/2021 1:27 AM Note Text: Nursing Progress Note Patient Name: Andrew Sifuentes Patient [facility] [facility]/[id number] 0100: Patient is unresponsive to questions. Patient [...] This note was completed by: Lyubov Day [facility] Phosphate SerPl-mCncon 05-30 Phosphate [Mass/Vol] 3.5 mg/dL Normal 2.7-4.8 [facility] Comment on above: Order Comment: Speci men Type: BLOOD SPECIMEN Performed By: #### 1 9123-9, 2777-1 ####[facility] [id number] [place] [address] [place] Sepsis Lactateon 05-30-2021 Sepsis Lactate 1.5 mmol/L Normal 0.5-2.0 [facility] Comment on above: Performed By: #### S LACT ####[facility] Vqzyvpnxzq5970 [phone] Syphilis Ttl w/Reflxon 05-30 Syphilis Interp Cannot exclude recen t Treponemal infection if specimen collected within 7 to 10 days after appearance of suspect lesions or 2 to 3 weeks after an exposure. Clinical correlation is required. [facility] Comment on above: Performed By: #### S YPHTX B1WB ####[facility] [address] [place], [place] [phone] Syphilis Screen Rslt Non-Reactive Normal Non Reactive [facility] Comment on above: Performed By: #### S YPHTX, B1WB ####[facility] [address] [place], [place] [phone] THERAPY NTon 05-30-2021 THERAPY NT HNO ID: [id number] Author: Bette Jimenez OTR/L Service: Occupational Therapy Author Type: Occupational Therapist Type: Therapy (PT/OT/Speech/Resp) Filed: 05/30/2021 10:29 AM Note Text: OCCUPATIONAL THERAPY MISSED VISIT SERVICE DATE: 05/30/2021 SERVICE TIME: 1017 to 1019 ROOM: [place] [address] Attempted Evaluation. Patient not seen due to Not following commands. Per nursing patient was seen by neuro and they are talking about having him transferred to [facility] secondary to shunt concerns. Will re attempt in the event patient continues to be admitted at [facility] and is able to participate. SIGNATURE: Bette Jimenez OTR/L PATIENT NAME: Andrew Sifuentes DATE: May 30, 2021 TIME: 10:21 AM [facility] THERAPY NT HNO ID: [id number] Author: Bette Velasquez, PT Service: Physical Therapy Author Type: Physical Therapist Type: Therapy (PT/OT/Speech/Resp) Filed: 05/30/2021 8:42 AM Note Text: PHYSICAL THERAPY MISSED VISIT SERVICE DATE: 05/30/2021 SERVICE TIME: 0840 to 0840 ROOM: [place] [address] Attempted Evaluation. Patient not seen due to (pt difficult to awake per RN, very lethargic). Will re-attempt when schedule permits. SIGNATURE: Bette Velasquez PT PATIENT NAME: Andrew Sifuentes DATE: May 30, 2021 TIME: 8:41 AM [facility] Toxicology Screen,Uron 05-30 Amphetamines, Urine Negative Normal Negative [facility] Comment on above: Result Comment: Cuto ff threshold at 1000 ng/mL. Performed By: #### C AD #### [facility] [place] [address] Barbiturates, Urine Negative Normal Negative [facility] Comment on above: Result Comment: Cuto ff threshold at 200 ng/mL. Performed By: #### C AD #### [facility] [address] [place] [phone] [facility] [address] [place] [address] Benzodiazepines, Ur Negative Normal Negative [facility] Comment on above: Result Comment: Cuto ff threshold at 200 ng/mL. Performed By: #### C AD #### [facility] [address] [place] [phone] [facility] [address] [place] [address] Cannabinoids, Urine Negative Normal Negative [facility] Comment on above: Result Comment: Cuto ff threshold at 50 ng/mL. Performed By: #### C AD #### [facility] [address] [place] [phone] [place] [address] Cocaine, Urine Negative Normal Negative [facility] Comment on above: Result Comment: Cuto ff threshold at 300 ng/mL. Performed By: #### C AD #### [facility] [place] [phone] [place] [address] Opiates, Urine Negative Normal Negative [facility] Comment on above: Result Comment: Cuto ff threshold at 300 ng/mL. Performed By: #### C AD #### [facility] [address] [place] [address] Oxycodone, Urine Negative Normal Negative [facility] Comment on above: Result Comment: Cuto [...] on the same specimen through Client Services ([phone]) if contacted within 48 hours of initial testing. [1]Substance Abuse and Mental Health Services Administration (2012). Clinical Drug Testing in Primary Care Technical Assistance Publication Series 32. Department of Health and Human Services, [place], p.10. Performed By: #### C AD #### [facility] [address] [place], [place] [id number] [address] [place] [address] Phencyclidine, Urine Negative Normal Negative [facility] Comment on above: Result Comment: Cuto ff threshold at 25 ng/mL. Performed By: #### C AD #### [facility] [address] [place] [address] [facility] [address] [place] [address] Troponin Ton 05-30-2021 Troponin T <0.010 Normal 0.000-0.029 [facility] Comment on above: Performed By: #### T NT ####[facility] [address] [place] [phone] Urinalysison 05-30-2021 Bilirubin, Urine Negative Normal Negative [facility] Comment on above: Performed By: #### C AD #### [facility] [address] [place] [phone] [facility] [address] [place] [phone] Clarity (U) Slightly Cloudy Critically abnormal Clear [facility] Comment on above: Performed By: #### C AD #### [facility] [address] [place] [phone] [facility] [address] [place] [phone] Color (U) Yellow Normal Yellow [facility] Comment on above: Performed By: #### C AD #### [facility] [address] [place] [phone] [facility] [address] [place] [phone] Glucose Ql (U) Negative Normal Negative [facility] Comment on above: Performed By: #### C AD #### [facility] [address] [place] [phone] [facility] [address] [place] [phone] Hemoglobin/Blood,Ur Negative Normal Negative [facility] Comment on above: Performed By: #### C AD #### [facility] [address] [place] [phone] [address] [place], [place] [address] Ketones Ql (U) Negative Normal Negative [facility] Comment on above: Performed By: #### C AD #### [facility] [address] [place] [address] [facility] [address] [place], [place] [address] Leukest Negative Normal Negative [facility] Comment on above: Performed By: #### C AD #### [facility] [address] [place] [address] [facility] [address] [place] [address] Nitrite Ql (U) Negative Normal Negative [facility] Comment on above: Performed By: #### C AD #### [facility] [place] [address] [facility] [address] [place] [address] pH (U) 8.5 [pH] High 5.0-8.0 [facility] Comment on above: Performed By: #### C AD #### [facility] [place] [address] [facility] [address] [place] [address] Protein, Urine Negative Normal Negative [facility] Comment on above: Performed By: #### C AD #### [facility] [place] [address] [facility] [address] [place], [place] [address] Specific [place], Ur 1.015 Normal 1.005-1.030 [facility] Comment on above: Performed By: #### C AD #### [facility] [address] [place] [address] [facility] [address] [place], [place] [address] Urobilinogen Qn (U) 0.2 {Marianne'U}/dL Normal 0.2-1.0 [facility] Comment on above: Performed By: #### C AD #### [facility] [address] [place] [address] [place] [address] [place], [place] [address] Vitamin B1, Whole Blon 05-30 Vitamin B1 (TDP), WB 207.1 nmol/L Normal 84.0-213.0 [facility] Comment on above: Result Comment: This assay measures the concentration of thiamine diphosphate (TDP), the primary active form of vitamin B1. Approximately 90 percent of vitamin B1 present in whole blood is TDP. Thiamine and thiamine monophosphate, which comprise the remaining 10 percent, are not measured. This test was developed and its performance characteristics determined by [facility]'s Isrrael Perez [facility] Pathology and Laboratory Medicine [place] ( [facility]). It has not been cleared or approved by the FDA. [facility] is regulated under CLIA as qualified to perform high complexity testing. This test is used for clinical purposes. It should not be regarded as investigational or for research. Performed By: #### S YPHTX, B1WB ####[facility] [place], [place] [phone] Vitamin B12on 05-30-2021 Cobalamin (Vitamin B12) [Mass/Vol] 494 pg/mL Normal 232-1245 [facility] Comment on above: Performed By: #### C AD #### [facility] [address] [place] [address] [place] [address] [place], [place] [address] ALLIED HEALTHon 05-29-2021 ALLIED HEALTH HNO ID: [id number] Author: Danica Jose RT(R) Service: Radiology Author Type: Technologist Type: [...] RT Kitty(R) May 29, 2021 8:51 PM [facility] ALLIED HEALTH HNO ID: [id number] Author: Markie Fish Service: ? Author Type: Excel Developer Type: Allied Health Filed: 05/29/2021 8:39 PM [...] Markie Fish May 29, 2021 8:38 PM [facility] CBC and Differentialon 05-29 Abs Baso 0.05 k/uL Normal <0.11 [facility] Comment on above: Performed By: #### C MP, MG1, CBCDIF ####[facility] [address] [place] [address] Abs [place] 0.72 k/uL Normal <0.87 [facility] Comment on above: Performed By: #### C MP, MG1, CBCDIF ####[facility] [address] [place] [address] Abs Neut 7.86 k/uL High 1.45-7.50 [facility] Comment on above: Performed By: #### C MP, MG1, CBCDIF ####[facility] [address] [place] [address] Absolute nRBC <0.01 Normal <0.01 [facility] Comment on above: Performed By: #### C MP, MG1, CBCDIF ####[facility] [address] [place] [address] Basophils/100 WBC (Bld) 0.5 % Normal [facility] Comment on above: Performed By: #### C MP, MG1, CBCDIF ####[facility] [address] [place] [address] DTYPE Auto Diff Normal [facility] Comment on above: Performed By: #### C MP, MG1, CBCDIF ####[facility] [address] [place] [address] Eosinophils (Bld) [#/Vol] 0.10 10*3/uL Normal <0.46 [facility] Comment on above: Performed By: #### C MP, MG1, CBCDIF ####[facility] [address] [place] [address] Eosinophils/100 WBC (Bld) 0.9 % Normal [facility] Comment on above: Performed By: #### C MP, MG1, CBCDIF ####[facility] [address] [place] [address] Erythrocyte distribution width (RBC) [Ratio] 15.5 % High 11.5-15.0 [facility] Comment on above: Performed By: #### C MP, MG1, CBCDIF ####[facility] [address] [place] [address] Hematocrit (Bld) [Volume fraction] 41.6 % Normal 39.0-51.0 [facility] Comment on above: Performed By: #### C MP, MG1, CBCDIF ####[facility] [address] [place] [address] Hemoglobin (Bld) [Mass/Vol] 12.7 g/dL Low 13.0-17.0 [facility] Comment on above: Performed By: #### C MP, MG1, CBCDIF ####[facility] [address] [place] [address] Lymphocytes (Bld) [#/Vol] 2.04 10*3/uL Normal 1.00-4.00 [facility] Comment on above: Performed By: #### C MP, MG1, CBCDIF ####[facility] [address] [place] [address] Lymphocytes/100 WBC (Bld) 18.9 % Normal [facility] Comment on above: Performed By: #### C MP, MG1, CBCDIF ####[facility] [address] [place] [address] MCH 27.3 pG Normal 26.0-34.0 [facility] Comment on above: Performed By: #### C MP MG1, CBCDIF ####[facility] [address] [place] [address] MCHC (RBC) [Mass/Vol] 30.5 g/dL Normal 30.5-36.0 [facility] Comment on above: Performed By: #### C MP MG1, CBCDIF ####[place] [address] MCV (RBC) [Entitic vol] 89.5 fL Normal 80.0-100.0 [facility] Comment on above: Performed By: #### C MP, MG1, CBCDIF ####[facility] [address] [place] [address] Monocytes/100 WBC (Bld) 6.7 % Normal [facility] Comment on above: Performed By: #### C MP, MG1, CBCDIF ####[place] [address] Neutrophils/100 WBC (Bld) 73.0 % Normal [facility] Comment on above: Performed By: #### C MP, MG1, CBCDIF ####[facility] [address] [place] [address] NRBCs 0.0 /100 WBC Normal 0 [facility] Comment on above: Performed By: #### C MP, MG1, CBCDIF ####[facility] [address] [place] [address] Platelet mean volume (Bld) [Entitic vol] 10.1 fL Normal 9.0-12.7 [facility] Comment on above: Performed By: #### C MP, MG1, CBCDIF ####[facility] [address] [place] [address] Platelets (Bld) [#/Vol] 291 10*3/uL Normal 150-400 [facility] Comment on above: Performed By: #### C MP, MG1, CBCDIF ####[facility] Qktkkketgs9384 [address] RBC (Bld) [#/Vol] 4.65 10*6/uL Normal 4.20-6.00 [facility] Comment on above: Performed By: #### C MP, MG1, CBCDIF ####[facility] Xlgkadjtfb6167 [address]5[address] WBC (Bld) [#/Vol] 10.77 10*3/uL Normal 3.70-11.00 [facility] Comment on above: Performed By: #### C MP, MG1, CBCDIF ####[facility] [address] [place] [phone] CT BRAIN WO IVCONon 05-29-19 CT BRAIN WO IVCON * * *Final Report* * * DATE OF EXAM: May 29 2021 8:42PM [facility] [place] BRAIN WO IVCON / PROCEDURE REASON: Head trauma, headache * * * * Physician Interpretation * * * * EXAMINATION: CT CERVICAL SPINE WO IVCON, CT BRAIN WO IVCON CLINICAL HISTORY: C-spine trauma, NEXUS/CCR positive (accession [id number]), Head trauma, headache (accession [id number]) TECHNIQUE: Serial axial unenhanced images were obtained from the vertex to the foramen magnum. Spiral, high resolution axial unenhanced images were obtained from the skull base to the cervicothoracic junction with sagittal and coronal planar reconstructions. Dose-Length Product (DLP): 2132 mGy*cm. CT Dose Reduction Employed: Automated exposure control (AEC) COMPARISON: 08/13/[address] RESULT: BRAIN: Post-operative change: Right parietal approach HYDRO ELECTRIC STATION OPERATOR shunt is intact. The intracranial fragments of [...] vertebrae with counting from the craniocervical junction. Auto Body Customizer: [facility] Transcribe Date/Time: May 29 2021 8:59P Dictated by : CARLOS YOUNGER MD This examination was interpreted and the report reviewed and electronically signed by: CARLOS YOUNGER MD on May 29 2021 9:14PM EST [id number] [facility] CT CERVICAL SPINE WO IVCONon 05-29-2021 CT CERVICAL SPINE WO IVCON * * *Final Report* * * DATE OF EXAM: May 29 2021 8:42PM [facility] [place] CERVICAL SPINE WO IVCON / PROCEDURE REASON: C-spine trauma, NEXUS/CCR positive * * * * Physician Interpretation * * * * EXAMINATION: CT CERVICAL SPINE WO IVCON, CT BRAIN WO IVCON CLINICAL HISTORY: C-spine trauma, NEXUS/CCR positive (accession [id number]), Head trauma, headache (accession [id number]) TECHNIQUE: Serial axial unenhanced images were obtained from the vertex to the foramen magnum. Spiral, high resolution axial unenhanced images were obtained from the skull base to the cervicothoracic junction with sagittal and coronal planar reconstructions. Dose-Length Product (DLP): 2132 mGy*cm. CT Dose Reduction Employed: Automated exposure control (AEC) COMPARISON: 08/13/[address] RESULT: BRAIN: Post-operative change: Right parietal approach HYDRO ELECTRIC STATION OPERATOR shunt is intact. The intracranial fragments of [...] vertebrae with counting from the craniocervical junction. Auto Body Customizer: [facility] Transcribe Date/Time: May 29 2021 8:59P Dictated by : CARLOS YOUNGER MD This examination was interpreted and the report reviewed and electronically signed by: CARLOS YOUNGER MD on May 29 2021 9:14PM EST [id number] Normal [facility] Cepheid Bill only (EXCFR)on 05-29-2021 Cepheid Bill only (EXCFR) Billed for services performed Normal [facility] Comment on above: Performed By: #### C AD #### [facility] [address] [place] [address] [facility] [address] [place], [place] [address] Comp Metabolic Panelon 05-29 Albumin [Mass/Vol] 4.1 g/dL Normal 3.9-4.9 [facility] Comment on above: Performed By: #### C MP ####[facility] [address] [place] [address] ALP [Catalytic activity/Vol] 86 U/L Normal 38-113 [facility] Comment on above: Performed By: #### C MP ####[facility] [address] [place] [address] ALT [Catalytic activity/Vol] 15 U/L Normal 10-54 [facility] Comment on above: Performed By: #### C MP ####[facility] [address] [place] [address] Anion gap [Moles/Vol] 9 mmol/L Normal 9-18 [facility] Comment on above: Performed By: #### C MP ####[facility] [address] [place] [address] AST [Catalytic activity/Vol] 22 U/L Normal 14-40 [facility] Comment on above: Performed By: #### C MP ####[facility] [address] [place] [address] Bilirubin [Mass/Vol] 0.2 mg/dL Normal 0.2-1.3 [facility] Comment on above: Performed By: #### C MP ####[facility] [address] [place] [address] Calcium [Mass/Vol] 9.1 mg/dL Normal 8.5-10.2 [facility] Comment on above: Performed By: #### C MP ####[facility] [address] [place] [address] Chloride [Moles/Vol] 103 mmol/L Normal 97-105 [facility] Comment on above: Performed By: #### C MP ####[facility] [address] [place] [address] CO2 [Moles/Vol] 29 mmol/L Normal 22-30 [facility] Comment on above: Performed By: #### C MP ####[facility] [address] [place] [address] Creatinine [Mass/Vol] 0.89 mg/dL Normal 0.73-1.22 [facility] Comment on above: Performed By: #### C MP ####[facility] [address] [place] [address] eGFR- Amer. >60 Normal [facility] Comment on above: Performed By: #### C MP ####[facility] [address] [place] [phone] eGFR-All Other Races >60 Normal [facility] Comment on above: Result Comment: eGFR (Estimated [...] at [email or web address]. Performed By: #### C MP ####[facility] [address] [place] [phone] Glucose [Mass/Vol] 120 mg/dL High 74-99 [facility] Comment on above: Result Comment: The [place] Diabetes [employer] (ADA) provides guidance for cutoff [...] Standards of Medical Care in Diabetes 2016, [place] [employer]. Diabetes Care. 2016.39(Suppl 1). Performed By: #### C MP ####[facility] [address] [place] [phone] Potassium [Moles/Vol] 4.2 mmol/L Normal 3.7-5.1 [facility] Comment on above: Performed By: #### C MP ####[facility] [address] [place] [address] Protein [Mass/Vol] 7.1 g/dL Normal 6.3-8.0 [facility] Comment on above: Performed By: #### C MP ####[facility] [address] [place] [address] Sodium [Moles/Vol] 141 mmol/L Normal 136-144 [facility] Comment on above: Performed By: #### C MP ####[facility] [address] [place] [address] Urea nitrogen [Mass/Vol] 11 mg/dL Normal 9-24 [facility] Comment on above: Performed By: #### C MP ####[facility] [address] [place] [address] Albumin [Mass/Vol] 4.1 g/dL Normal 3.9-4.9 [facility] Comment on above: Performed By: #### C MP, MG1, CBCDIF ####[facility] [address] [place] [address] ALP [Catalytic activity/Vol] 86 U/L Normal 38-113 [facility] Comment on above: Performed By: #### C MP, MG1, CBCDIF ####[facility] [address] [place] [address] ALT Unable to assay due to interference from hemolysis. Suggest reorder as clinically indicated. Normal 10-54 [facility] Comment on above: Result Comment: Call ed to ED Álvaro at 2128 on 05.29.21 by Sabino Performed By: #### C MP, MG1, CBCDIF ####[facility] [address] [place] [address] Anion gap [Moles/Vol] 12 mmol/L Normal 9-18 [facility] Comment on above: Performed By: #### C MP, MG1, CBCDIF ####[facility] [address] [place] [address] AST Unable to assay due to interference from hemolysis. Suggest reorder as clinically indicated. Normal 14-40 [facility] Comment on above: Result Comment: Call ed to ED Álvaro at 2129 on 05.29.21 by Sabino Performed By: #### C MP, MG1, CBCDIF ####[facility] [address] [place] [address] Bilirubin [Mass/Vol] 0.2 mg/dL Normal 0.2-1.3 [facility] Comment on above: Performed By: #### C MP, MG1, CBCDIF ####[facility] [address] [place] [address] Calcium [Mass/Vol] 9.0 mg/dL Normal 8.5-10.2 [facility] Comment on above: Performed By: #### C MP, MG1, CBCDIF ####[facility] [address] [place] [address] Chloride [Moles/Vol] 102 mmol/L Normal 97-105 [facility] Comment on above: Performed By: #### C MP, MG1, CBCDIF ####[facility] [address] [place] [address] CO2 [Moles/Vol] 27 mmol/L Normal 22-30 [facility] Comment on above: Performed By: #### C MP, MG1, CBCDIF ####[facility] [address] [place] [address] Creatinine [Mass/Vol] 0.75 mg/dL Normal 0.73-1.22 [facility] Comment on above: Performed By: #### C MP, MG1, CBCDIF ####[facility] [address] [place] [address] eGFR- Amer. >60 Normal [facility] Comment on above: Performed By: #### C MP, MG1, CBCDIF ####[facility] [address] [place] [address] eGFR-All Other Races >60 Normal [facility] Comment on above: Result Comment: eGFR (Estimated [...] Performed By: #### C MP, MG1, CBCDIF ####[facility] [address] [place] [address] Glucose [Mass/Vol] 112 mg/dL High 74-99 [facility] Comment on above: Result Comment: The [place] Diabetes [employer] (ADA) provides guidance for cutoff [...] Standards of Medical Care in Diabetes 2016, [place] [employer]. Diabetes Care. 2016.39(Suppl 1). Performed By: #### C MP, MG1, CBCDIF ####[facility] [address] [place] [phone] Potassium Unable to assay due to interference from hemolysis. Suggest reorder as clinically indicated. Normal 3.7-5.1 [facility] Comment on above: Result Comment: Call ed to LISA Rea at 2129 on 05.29.21 by Sabino Performed By: #### C MP, MG1, CBCDIF ####[facility] [address] [place] [phone] Protein [Mass/Vol] 7.3 g/dL Normal 6.3-8.0 [facility] Comment on above: Performed By: #### C MP, MG1, CBCDIF ####[facility] [address] [place] [phone] Sodium [Moles/Vol] 141 mmol/L Normal 136-144 [facility] Comment on above: Performed By: #### C MP, MG1, CBCDIF ####[facility] [address] [place] [phone] Urea nitrogen [Mass/Vol] 11 mg/dL Normal 9-24 [facility] Comment on above: Performed By: #### C MP, MG1, CBCDIF ####[facility] [address] [place] [phone] ED PROV NOTEon 05-29-2021 ED PROV NOTE HNO ID: [id number] Author: Shanell Slaughter MD Service: ? Author [...] No radiographic evidence of acute cardiopulmonary disease. Auto Body Customizer: [facility] Transcribe Date/Time: May 29 2021 8:53P Dictated by : ROLY BANGURA MD This examination was interpreted and the report reviewed and electronically signed by: ROLY BANGURA MD on May 29 2021 8:54PM EST CT BRAIN WO IVCON Final Result IMPRESSION: Head CT: No acute abnormality. Cervical CT: No acute abnormality. Anatomic Variant: None. Assume 7 cervical vertebrae with counting from the craniocervical junction. Auto Body Customizer: [facility] Transcribe Date/Time: May 29 2021 8:59P Dictated [...] vertebrae with counting from the craniocervical junction. Auto Body Customizer: [facility] Transcribe Date/Time: May 29 (more content not included)... Normal [facility] ED PROV NOTE HNO ID: [id number] Author: Flavio Pandya DO Service: Emergency Medicine Author Type: Physician Type: ED Provider Notes Filed: 05/29/2021 7:10 PM Note Text: ED Provider Note Patient Name: Andrew Sifuentes SERVICE DATE: 05/29/21 History Patient presents with: Fall 71 yo male non-smoker, hx of HTN, 2 HYDRO ELECTRIC STATION OPERATOR shunts, PE (not on anticoagulation now), asthma, [...] with assistance from bedside clinician. Provider Location: [facility] Patient Location: Outpatient Hospital Physical Exam Vital [...] Flavio Pandya, DO Flavio Pandya, 05/29/211909 Normal [facility] EXCOVD, Flu A/B, RSV (On int erfaces 1102,1120)on 05-29-2021 Influenza A PCR Negative [facility] Comment on above: Performed By: #### C AD #### [facility] [address] [place] [address] [facility] [address] [place] [address] Influenza B PCR Negative Normal [facility] Comment on above: Performed By: #### C AD #### [facility] [address] [place] [address] [facility] [address] [place] [address] RSV PCR Negative Normal [facility] Comment on above: Result Comment: This test has been authorized by FDA under an Emergency Use Authorization (EUA). Performed By: #### C AD #### [facility] [place] [address] [place] [address] SARS-CoV-2 (COVID-19) RNA MEGAN+probe Ql (Unsp spec) UPPER RESPIRATORY TRACT SWAB Normal [facility] Comment on above: Performed By: #### C AD #### [facility] [place] [id number] [place] [address] SARS-CoV-2 (COVID-19) RNA MEGAN+probe Ql (Unsp spec) Negative for COVID19 (SARS CoV2) by RT-PCR or equivalent method. Normal Negative for COVID19 (SARS CoV2) by RT-PCR or equivalent method. [facility] Comment on above: Result Comment: This test has been authorized by FDA under an Emergency Use Authorization (EUA). Performed By: #### C AD #### [facility] [place] [id number] [place] [address] Magnesiumon 05-29-2021 Magnesium [Mass/Vol] 2.2 mg/dL Normal 1.7-2.3 [facility] Comment on above: Performed By: #### C MP, MG1, CBCDIF ####[facility] Enwpmymdeb3083 [address] NT Pro BNPon 05-29-2021 PRO B Natr Peptide 303 pg/mL High <125 [facility] Comment on above: Performed By: #### N TBNP ####[facility] [phone] Troponin Ton 05-29-2021 Troponin T <0.010 Normal 0.000-0.029 [facility] Comment on above: Performed By: #### T NT ####[facility] [phone] Troponin T Unable to assay due to interference from hemolysis. Suggest reorder as clinically indicated. Normal 0.000-0.029 [facility] Comment on above: Result Comment: Call ed to ED Álvaro at 2129 on 05.29.21 by Sabino Performed By: #### T NT ####[facility] [address] [place] [phone] XR CHEST 1V FRONTAL PORTon 0 05-29-2021 [...] No radiographic evidence of acute cardiopulmonary disease. Auto Body Customizer: OG Transcribe Date/Time: May 29 2021 8:53P Dictated by : ROLY BANGURA MD This examination was interpreted and the report reviewed and electronically signed by: ROLY BANGURA MD on May 29 2021 8:54PM EST [id number] Normal [facility] COMPREHENSIVE PANELon 2020 Albumin [Mass/Vol] 3.9 g/dL Normal 3.4 - 5.0 [facility] Comment on above: Order Comment: PATIE NT FASTING Performed By: #### C MP #### [facility] [address] [place] [address] ALP [Catalytic activity/Vol] 71 U/L Normal 33 - 136 [facility] Comment on above: Order Comment: PATIE NT FASTING Performed By: #### C MP #### [facility] [address] [place] [address] ALT [Catalytic activity/Vol] 19 U/L Normal 10 - 52 [facility] Comment on above: Order Comment: PATIE NT FASTING Result Comment: Nasima ents treated with Sulfasalazine may generate falsely decreased results for ALT. Performed By: #### C MP #### [facility] [address] [place] [address] Anion gap [Moles/Vol] 13 mmol/L Normal 10 - 20 [facility] Comment on above: Order Comment: PATIE NT FASTING Performed By: #### C MP #### [facility] [address] [place] [address] AST [Catalytic activity/Vol] 20 U/L Normal 9 - 39 [facility] Comment on above: Order Comment: PATIE NT FASTING Performed By: #### C MP #### [facility] [address] [place] [address] Bilirubin [Mass/Vol] 0.6 mg/dL Normal 0.0 - 1.2 [facility] Comment on above: Order Comment: PATIE NT FASTING Performed By: #### C MP #### [facility] [address] [place] [address] Calcium [Mass/Vol] 9.0 mg/dL Normal 8.6 - 10.6 [facility] Comment on above: Order Comment: PATIE NT FASTING Performed By: #### C MP #### [facility] [address] [place] [address] Chloride [Moles/Vol] 103 mmol/L Normal 98 - 107 [facility] Comment on above: Order Comment: PATIE NT FASTING Performed By: #### C MP #### [facility] [address] [place] [address] Creatinine [Mass/Vol] 0.94 mg/dL Normal 0.50 - 1.30 [facility] Comment on above: Order Comment: PATIE NT FASTING Performed By: #### C MP #### [facility] [address] [place] [address] GFR- AM. >60 Normal >60 [facility] Comment on above: Order Comment: PATIE NT FASTING Result Comment: CALC ULATIONS OF ESTIMATED GFR ARE PERFORMED USING THE MDRD STUDY EQUATION FOR THE IDMS-TRACEABLE CREATININE METHODS. CLIN CHEM 2007;53:766-72 Performed By: #### C MP #### [facility] [address] [place] [address] GFR-NON AM. >60 Normal >60 [facility] Comment on above: Order Comment: PATIE NT FASTING Performed By: #### C MP #### [facility] [address] [place] [address] Glucose [Mass/Vol] 85 mg/dL Normal 74 - 99 [facility] Comment on above: Order Comment: PATIE NT FASTING Performed By: #### C MP #### [facility] [address] [place] [address] HCO3 (Bld) [Moles/Vol] 30 mmol/L Normal 21 - 32 [facility] Comment on above: Order Comment: PATIE NT FASTING Performed By: #### C MP #### [facility] [address] [place] [address] Potassium [Moles/Vol] 4.1 mmol/L Normal 3.5 - 5.3 [facility] Comment on above: Order Comment: PATIE NT FASTING Performed By: #### C MP #### [facility] [address] [place] [address] Protein [Mass/Vol] 6.6 g/dL Normal 6.4 - 8.2 [facility] Comment on above: Order Comment: PATIE NT FASTING Performed By: #### C MP #### [facility] [address] [place] [address] Sodium [Moles/Vol] 142 mmol/L Normal 136 - 145 [facility] Comment on above: Order Comment: PATIE NT FASTING Performed By: #### C MP #### [facility] [address] [place] [address] Urea nitrogen [Mass/Vol] 14 mg/dL Normal 6 - 23 [facility] Comment on above: Order Comment: PATIE NT FASTING Performed By: #### C MP #### [facility] [address] [place] [address] LIPID PANEL (CORONARY RISK 2 )on 09-03-2020 Cholesterol [Mass/Vol] 210 mg/dL High 0 - 199 [facility] Comment on above: Order Comment: [...] dosing. Performed By: #### L IPID #### [facility] [address] [place] [address] Cholesterol in HDL [Mass/Vol] 50.1 mg/dL Normal [facility] Comment on above: Order Comment: PATIE NT FASTING Result Comment: . AGE VERY LOW LOW NORMAL HIGH 0-19 Y < 35 < 40 40-45 ---- 20-24 Y ---- < 40 >45 ---- >24 Y ---- < 40 40-60 >60 . Performed By: #### L IPID #### [facility] [address] [place] [address] Cholesterol in LDL [Mass/Vol] 130 mg/dL High 0 - 99 [facility] Comment on above: Order Comment: PATIE NT FASTING Result Comment: . NEAR BORD AGE DESIRABLE OPTIMAL HIGH HIGH VERY HIGH 0-19 Y 0 - 109 --- 110-129 >/= 130 ---- 20-24 Y 0 - 119 --- 120-159 >/= 160 ---- >24 Y 0 - 99 100-129 130-159 160-189 >/=190 . Performed By: #### L IPID #### [facility] [address] [place] [address] Cholesterol in VLDL [Mass/Vol] 30 mg/dL Normal 0 - 40 [facility] Comment on above: Order Comment: PATIE NT FASTING Performed By: #### L IPID #### [facility] [address] [place] [address] Cholesterol.total/Chol esterol in HDL [Mass ratio] 4.2 {ratio} Normal [facility] Comment on above: Order Comment: PATIE NT FASTING Result Comment: REF VALUES DESIRABLE < 3.4 HIGH RISK > 5.0 Performed By: #### L IPID #### [facility] [address] [place] [address] Triglyceride [Mass/Vol] 152 mg/dL High 0 - 149 [facility] Comment on above: Order Comment: [...] dosing. Performed By: #### L IPID #### [facility] [address] [place] [address] PROSTATE SPEC.AG,SCREENon PROSTATE SPEC.AG,SCREEN 0.37 ng/mL Normal 0.00 - 4.00 [facility] Comment on above: Order Comment: PATIE NT FASTING Result Comment: The FDA requires that the method used for PSA assay be reported to the physician. Values obtained with different assay methods must not be used interchangeably. This test was performed at [facility] using the [employer] PSA method, which is a sandwich immunoassay using chemiluminescence for quantitation. The assay is approved for measurement of prostate-specific antigen (PSA) in serum and may be used in conjunction with a digital rectal examination in men 50 years and older as an aid in detection of prostate cancer. 3-Ltwlz-ndtsrbijh inhibitors (e.g. Proscar, Finasteride, Avodart, Dutasteride and Elizabeth) for the treatment of BPH have been shown to lower PSA levels by an average of 50% after 6 months of treatment. Performed By: #### P SAS #### [facility] [address] [place] [address] TSH WITH REFLEX TO FREE T4 I F ABNORMALon 09-03-2020 TSH Qn 0.97 m[IU]/L Normal 0.44 - 3.98 [facility] Comment on above: Order Comment: PATIE NT FASTING Result Comment: TSH testing is performed using different testing methodology at [facility] than at other [facility]. Direct result comparisons should only be made within the same method. Performed By: #### T HYDS #### [facility] [address] [place] [address] CBC AND DIFFERENTIALon 09-02 % AUTOMATED IMMATURE GRAN 0.3 % Normal 0.0 - 0.9 [facility] Comment on above: Order Comment: PATIE NT FASTING Result Comment: [place] Granulocyte Count (IG) includes promyelocytes, myelocytes and metamyelocytes but does not include bands. Percent differential counts (%) should be interpreted in the context of the absolute cell counts (cells/L). Performed By: #### C BCDF #### [facility] [address] [place] [address] Basophils (Bld) [#/Vol] 0.07 10*3/uL Normal 0.00 - 0.10 [facility] Comment on above: Order Comment: PATIE NT FASTING Result Comment: Auto mated WBC differential has been confirmed by manual smear. Performed By: #### C BCDF #### [facility] [address] [place] [address] Basophils/100 WBC (Bld) 0.9 % Normal 0.0 - 2.0 [facility] Comment on above: Order Comment: PATIE NT FASTING Performed By: #### C BCDF #### [facility] [address] [place] [address] Eosinophils (Bld) [#/Vol] 0.21 10*3/uL Normal 0.00 - 0.70 [facility] Comment on above: Order Comment: PATIE NT FASTING Performed By: #### C BCDF #### [facility] [address] [place] [address] Eosinophils/100 WBC (Bld) 2.8 % Normal 0.0 - 6.0 [facility] Comment on above: Order Comment: PATIE NT FASTING Performed By: #### C BCDF #### [facility] [address] [place] [address] Lymphocytes (Bld) [#/Vol] 2.28 10*3/uL Normal 1.20 - 4.80 [facility] Comment on above: Order Comment: PATIE NT FASTING Performed By: #### C BCDF #### [place] [address] [place] [address] Lymphocytes/100 WBC (Bld) 30.9 % Normal 13.0 - 44.0 [facility] Comment on above: Order Comment: PATIE NT FASTING Performed By: #### C BCDF #### [facility] [address] [place] [address] Monocytes (Bld) [#/Vol] 0.50 10*3/uL Normal 0.10 - 1.00 [facility] Comment on above: Order Comment: PATIE NT FASTING Performed By: #### C BCDF #### [facility] [address] [place] [address] Monocytes/100 WBC (Bld) 6.8 % Normal 2.0 - 10.0 [facility] Comment on above: Order Comment: PATIE NT FASTING Performed By: #### C BCDF #### [facility] [address] [place] [address] Neutrophils (Bld) [#/Vol] 4.29 10*3/uL Normal 1.20 - 7.70 [facility] Comment on above: Order Comment: PATIE NT FASTING Performed By: #### C BCDF #### [facility] [address] [place] [address] Neutrophils/100 WBC (Bld) 58.3 % Normal 40.0 - 80.0 [facility] Comment on above: Order Comment: PATIE NT FASTING Performed By: #### C BCDF #### [facility] [address] [place] [address] Erythrocyte distribution width (RBC) [Ratio] 14.6 % High 11.5 - 14.5 [facility] Comment on above: Order Comment: PATIE NT FASTING Performed By: #### C BCDF #### [facility] [address] [place] [address] Hematocrit (Bld) [Volume fraction] 43.1 % Normal 41.0 - 52.0 [facility] Comment on above: Order Comment: PATIE NT FASTING Performed By: #### C BCDF #### [facility] [address] [place] [address] Hemoglobin (Bld) [Mass/Vol] 13.3 g/dL Low 13.5 - 17.5 [facility] Comment on above: Order Comment: PATIE NT FASTING Performed By: #### C BCDF #### [facility] [address] [place] [address] MCHC (RBC) [Mass/Vol] 30.9 g/dL Low 32.0 - 36.0 [facility] Comment on above: Order Comment: PATIE NT FASTING Performed By: #### C BCDF #### [facility] [address] [place] [address] MCV (RBC) [Entitic vol] 92 fL Normal 80 - 100 [facility] Comment on above: Order Comment: PATIE NT FASTING Performed By: #### C BCDF #### [facility] [address] [place] [address] NUCLEATED RBC 0.0 /100 WBC Normal 0.0-0.0 [facility] Comment on above: Order Comment: PATIE NT FASTING Performed By: #### C BCDF #### [facility] [address] [place] [address] Platelets (Bld) [#/Vol] 267 10*3/uL Normal 150 - 450 [facility] Comment on above: Order Comment: PATIE NT FASTING Performed By: #### C BCDF #### [facility] [address] [place] [address] RBC 4.69 x10E12/L Normal 4.50 - 5.90 [facility] Comment on above: Order Comment: PATIE NT FASTING Performed By: #### C BCDF #### [facility] [address] [place] [address] WBC (Bld) [#/Vol] 7.4 10*3/uL Normal 4.4 - 11.3 [facility] Comment on above: Order Comment: PATIE NT FASTING Performed By: #### C BCDF #### [facility] [address] [place] [address] RED CELL MORPHOLOGYon 2020 CHANELL CELLS Few Normal [facility] Comment on above: Order Comment: PATIE NT FASTING Performed By: #### M ORP2 #### [facility] [address] [place] [address] OVALOCYTES Few Normal [facility] Comment on above: Order Comment: PATIE NT FASTING Performed By: #### M ORP2 #### [facility] [address] [place] [address] POLYCHROMASIA Mild Normal [facility] Comment on above: Order Comment: PATIE NT FASTING Performed By: #### M ORP2 #### [facility] [address] [place] [address] RBC FRAGMENTS Few Normal [facility] Comment on above: Order Comment: PATIE NT FASTING Performed By: #### M ORP2 #### [facility] [address] [place] [address] RBC morphology finding Nom (Bld) See Below Normal [facility] Comment on above: Order Comment: PATIE NT FASTING Performed By: #### M ORP2 #### [facility] [address] [place] [address] No Panel Informationon 01-19 76 1 MP-Cardiolo [...] [place] Work Phone: [email or web address] ?RetrieveTestByDateTime?P [email or web address]=[id number]&Date=1 09-13-2019&Time=15%3a11%3a 03%3a00&TestType=ECG&Site =1&OutputType=PDF&Ext=PDF MP-Cardiolo gy-M[address] 140 [place] Work Phone: Otheron 11-13-2019 [facility] Complete Blood Count + Diffe rentialon [...] (Bld) [Volume fraction] 45.5 % See Below [facility] Work Phone: Comment on above: Reference Range: 41. 0 - 52.0 Hemoglobin (Bld) [Mass/Vol] 14.0 g/dL See Below [facility] Work Phone: Comment on above: Reference Range: 13. 5 - 17.5 Lymphocytes (Bld) [#/Vol] 2.15 {x10E9/L} See Below [facility] Work Phone: Comment on above: Reference Range: 1.2 0 - 4.80 Lymphocytes/100 WBC (Bld) 29.9 % See Below [facility] Work Phone: Comment on above: Reference Range: 13. 0 - 44.0 MCHC (RBC) [Mass/Vol] 30.8 g/dL below low threshold See Below [facility] Work Phone: Comment on above: Reference Range: 32. 0 - 36.0 MCV (RBC) [Entitic vol] 94 fL 80 - 100 [facility] Work Phone: Monocytes (Bld) [#/Vol] 0.49 {x10E9/L} See Below [facility] Work Phone: Comment on above: Reference Range: 0.1 0 - 1.00 Monocytes/100 WBC (Bld) 6.8 % 2.0 - 10.0 [facility] Work Phone: Neutrophils (Bld) [#/Vol] 4.30 {x10E9/L} See Below [facility] Work Phone: Comment on above: Reference Range: 1.2 0 - 7.70 Neutrophils/100 WBC (Bld) 59.9 % See Below [facility] Work Phone: Comment on above: Reference Range: 40. 0 - 80.0 Platelets (Bld) [#/Vol] 270 {x10E9/L} 150 - 450 [facility] Physician [facility] Work Phone: RBC (Bld) [#/Vol] 4.85 {x10E12/L} See Below [facility] Work Phone: Comment on above: Reference Range: 4.5 0 - 5.90 WBC (Bld) [#/Vol] 0.0 {/100_WBC} 0.0-0.0 [facility] Physician [facility] Work Phone: WBC (Bld) [#/Vol] 7.2 {x10E9/L} 4.4 - 11.3 [facility] Physician [facility] Work Phone: Complete Blood Count + Differential 0.1 % 0.0 - 0.9 [facility] Work Phone: Comment on above: Immature Granulocyte Count (IG) includes promyelocytes, myelocytes and metamyelocytes but does not include bands. Percent differential counts (%) should be interpreted in the context of the absolute cell counts (cells/L). Lipid Panelon 11-06-2019 Cholesterol [Mass/Vol] 181 mg/dL 0 - 199 [facility] Work Phone: Comment on above: . AGE [...] dosing. Cholesterol in HDL [Mass/Vol] 52.1 mg/dL [facility] Physician [facility] Work Phone: Comment on above: . AGE VERY LOW LOW N ORMAL HIGH 0-19 Y < 35 < 40 40-45 ---- 20-24 Y ---- < 40 >45 ---- >24 Y ---- < 40 40-60 >60. Cholesterol in LDL [Mass/Vol] 97 mg/dL 0 - 99 [facility] Physician [facility] Work Phone: Comment on above: . NEAR BORD AGE IZABELLA RABLE OPTIMAL HIGH HIGH VERY HIGH 0-19 Y 0 - 109 --- 110-129 >/= 130 ---- 20-24 Y 0 - 119 --- 120-159 >/= 160 ---- >24 Y 0 - 99 100-129 130-159 160-189 >/=190. Cholesterol.total/Chol esterol in HDL [Mass ratio] 3.5 {ratio} [facility] Physician [facility] Work Phone: Comment on above: REF VALUESDESIRABLE < 3.4HIGH RISK > 5.0 Triglyceride [Mass/Vol] 158 mg/dL above high threshold 0 - 149 [facility] Work Phone: Comment on above: . [...] Lipid Panel 32 mg/dL 0 - 40 [facility] Physician [facility] Work Phone: Metabolic Panelon 11-06-2019 ALP [Catalytic activity/Vol] 70 U/L 33 - 136 [facility] Work Phone: Anion gap [Moles/Vol] 13 mmol/L 10 - 20 [facility] Work Phone: Bilirubin [Mass/Vol] 0.6 mg/dL 0.0 - 1.2 [facility] Work Phone: Calcium [Mass/Vol] 9.4 mg/dL 8.6 - 10.6 [facility] Work Phone: Chloride [Moles/Vol] 99 mmol/L 98 - 107 [facility] Work Phone: CO2 [Moles/Vol] 30 mmol/L 21 - 32 [facility] Physician [facility] Work Phone: Creatinine [Mass/Vol] 0.87 mg/dL See Below [facility] Work Phone: Comment on above: Reference Range: 0.5 0 - 1.30 Glucose [Mass/Vol] 89 mg/dL 74 - 99 [facility] Work Phone: Potassium [Moles/Vol] 4.3 mmol/L 3.5 - 5.3 [facility] Work Phone: Protein [Mass/Vol] 7.3 g/dL 6.4 - 8.2 [facility] Work Phone: Sodium [Moles/Vol] 138 mmol/L 136 - 145 [facility] Work Phone: Urea nitrogen [Mass/Vol] 14 mg/dL 6 - 23 [facility] Work Phone: Otheron 11-06-2019 Albumin BCP dye [Mass/Vol] 4.4 g/dL 3.4 - 5.0 [facility] Work Phone: ALT With P-5'-P [Catalytic activity/Vol] 11 U/L 10 - 52 [facility] Work Phone: Comment on above: Patients treated wit h Sulfasalazine may generate falsely decreased results for ALT. AST With P-5'-P [Catalytic activity/Vol] 17 U/L 9 - 39 [facility] Work Phone: >60 >60 [facility] Work Phone: Comment on above: CALCULATIONS OF LUZMARIA MATED GFR ARE PERFORMED USING THE MDRD STUDY EQUATION FOR THE IDMS-TRACEABLE CREATININE METHODS. CLIN CHEM 2007;[id number] Culture, urine Bacteria identified Cx Nom (U) Mixed Gram Pos & Gram Neg Org [facility] Work Phone: Bacteria identified Cx Nom (U) Klebsiella pneumoniae sp pneum [facility] Work Phone: Vital Signs Date Time Vital Sign Value Performing Clinician Facility 09-13-2023 11:48-0400 Body height 175.3 cm Rebecca Buck MD Work Phone: [facility] [employer] 09-13-2023 11:48-0400 Body mass index (BMI) [Ratio] 25.84 kg/m2 Rebecca Buck MD Work Phone: [facility] 09-13-2023 11:48-0400 Body weight 79.38 kg Rebecca Buck MD Work Phone: [facility] 08-13-2023 09:56-0400 Body height 175.3 cm Rebecca Buck MD Work Phone: [facility] [employer] 08-13-2023 09:56-0400 Body mass index (BMI) [Ratio] 25.84 kg/m2 Rebecca Buck MD Work Phone: [facility] [employer] 08-13-2023 09:56-0400 Body weight 79.38 kg Rebecca Buck MD Work Phone: [facility] [employer] 03-02-2022 18:49-0400 Body temperature 98.01 [degF] Lanette Charli DO Work Phone: [facility] 03-02-2022 18:49-0400 Diastolic blood pressure 72 mm[Hg] Lanette Munguia DO Work Phone: [employer] 03-02-2022 18:49-0400 Heart rate 94 /min Lanette Munguia DO Work Phone: [facility] 03-02-2022 18:49-0400 Respiratory rate 18 /min Lanette Munguia DO Work Phone: [facility] 03-02-2022 18:49-0400 SaO2% (BldA) [Mass fraction] 98 % Lanette Munguia DO Work Phone: [employer] 03-02-2022 18:49-0400 Systolic blood pressure 104 mm[Hg] Lanette Munguia DO Work Phone: [facility] 03-02-2022 11:55-0400 Body height 175.3 cm Lanette Munguia DO Work Phone: [employer] 03-02-2022 11:55-0400 Body mass index (BMI) [Ratio] 25.84 kg/m2 Lanette Munguia DO Work Phone: [employer] 03-02-2022 11:55-0400 Body weight 79.38 kg Lanette Munguia DO Work Phone: [employer] 12-22-2021 02:08-0400 Diastolic blood pressure 67 mm[Hg] [facility] 12-22-2021 02:08-0400 Heart rate 77 /min Sharon Olivia MD Work Phone: [employer] 12-22-2021 02:08-0400 Respiratory rate 16 /min Sharon Olivia MD Work Phone: [employer] 12-22-2021 02:08-0400 SaO2% (BldA) [Mass fraction] 96 % Sharon [facility] 12-22-2021 02:08-0400 Systolic blood pressure 108 mm[Hg] Sharon [facility] 12-21-2021 23:52-0400 Body height 175.3 cm Sharon Olivia MD Work Phone: [employer] 12-21-2021 23:52-0400 Body mass index (BMI) [Ratio] 25.84 kg/m2 Sharon Olivia MD [facility] 12-21-2021 23:52-0400 Body temperature 97.9 [degF] Sharon Olivia MD Work Phone: [facility] 12-21-2021 23:52-0400 Body weight 79.38 kg Sharon Olivia MD Work Phone: [facility] 11-01-2021 08:41-0400 Diastolic blood pressure 77 mm[Hg] Dante Kim MD Work Phone: [facility] 11-01-2021 08:41-0400 Heart rate 75 /min Dante Kim MD Work Phone: [facility] 11-01-2021 08:41-0400 Respiratory rate 16 /min Dante Kim MD Work Phone: [facility] 11-01-2021 08:41-0400 SaO2% (BldA) [Mass fraction] 97 % Dante Kim MD Work Phone: [facility] 11-01-2021 08:41-0400 Systolic blood pressure 112 mm[Hg] Dante Kim MD Work Phone: [facility] 10-31-2021 19:13-0400 Body height 177.8 cm Dante Kim MD Work Phone: [facility] 10-31-2021 19:13-0400 Body mass index (BMI) [Ratio] 27.26 kg/m2 Dante Kim MD Work Phone: [facility] 10-31-2021 19:13-0400 Body temperature 98.49 [degF] Dante Kim MD Work Phone: [facility] 10-31-2021 19:13-0400 Body weight 86.18 kg Dante Kim MD Work Phone: [facility] 10-29-2021 07:38-0400 Body temperature 97.81 [degF] Lisa Michelle DO Work Phone: [facility] 10-29-2021 07:38-0400 Diastolic blood pressure 79 mm[Hg] Lisa Michelle DO Work Phone: [facility] 10-29-2021 07:38-0400 Heart rate 80 /min Lisa Michelle DO Work Phone: [facility] 10-29-2021 07:38-0400 Respiratory rate 18 /min Lisa Michelle DO Work Phone: [facility] 10-29-2021 07:38-0400 SaO2% (BldA) [Mass fraction] 96 % Lisa Michelle DO Work Phone: [facility] 10-29-2021 07:38-0400 Systolic blood pressure 123 mm[Hg] Lisa Michelle DO Work Phone: [facility] 10-25-2021 13:55-0400 Body height 170.2 cm Lisa Michelle DO Work Phone: [facility] 10-21-2021 00:57-0400 Body mass index (BMI) [Ratio] 37.58 kg/m2 Lisa Michelle DO Work Phone: [facility] 10-21-2021 00:57-0400 Body weight 108.86 kg Lisa Michelle DO Work Phone: [facility] 07-13-2020 13:21-0500 BMI (Body Mass Index) 40.47 kg/m2 Monika Staley [facility] Work Phone: 07-13-2020 13:21-0500 Body Temperature 98 [degF] Monika Staley [facility] Physician [facility] Work Phone: 07-13-2020 13:21-0500 Body weight 124.31 kg Monika Staley [facility] Work Phone: 07-13-2020 13:21-0500 BP Diastolic 78 mm[Hg] Monika Staley [facility] Physician [facility] Work Phone: 07-13-2020 13:21-0500 BP Systolic 138 mm[Hg] Monika Staley [facility] Physician [facility] Work Phone: 07-13-2020 13:21-0500 BSA (Body Surface Area) 2.36 m2 [facility]aley [facility] Work Phone: 04-13-2020 15:33-0500 BMI (Body Mass Index) 40.32 kg/m2 [facility] Work Phone: 04-13-2020 15:33-0500 Body weight 123.83 kg [facility] Work Phone: 04-13-2020 15:33-0500 BP Diastolic 82 mm[Hg] [facility] Work Phone: Comment on above: Location: [facility]; Position: Sitting 04-13-2020 15:33-0500 BP Systolic 145 mm[Hg] [facility] Work Phone: Comment on above: Location: [facility]; Position: Sitting 04-13-2020 15:33-0500 BSA (Body Surface Area) 2.36 m2 [facility] Work Phone: 04-13-2020 15:33-0500 Height 175.26 cm [facility] Work Phone: 04-13-2020 15:33-0500 Pulse (Heart Rate) 98 /min [facility] Work Phone: 04-13-2020 15:33-0500 Pulse Oximetry 98 % [facility] Work Phone: Comment on above: Source: 04-13-2020 15:33-0500 0 1 [facility] Work Phone: Comment on above: Pain Scale 01-20-2020 16:39-0400 Body height 175.26 cm Monika Staley MD [facility] y[facility] [address] [place] Work Phone: 01-20-2020 16:39-0400 Body mass index (BMI) [Ratio] 39.28 kg/m2 Monika Staley MD WM-Lsekaezubi-Xxl [facility] [address] [place] Work Phone: 01-20-2020 16:39-0400 Body surface area Derived from formula 2.33 m2 Monika Staley MD OO-Pmsmllhzol-Xch [address] [address] [place] Work Phone: 01-20-2020 16:39-0400 Body weight 120.66 kg Monika Staley MD [facility] [address] [place] Work Phone: 01-20-2020 16:39-0400 Diastolic blood pressure 84 mm[Hg] Monika Staley MD HY-Sgjjkkozcv-Ilr [facility] [place] Work Phone: Comment on above: Location: [facility]; Position: Sitting 01-20-2020 16:39-0400 Heart rate 80 /min Monika Staley MD [facility] [address] [place] Work Phone: 01-20-2020 16:39-0400 SaO2% (BldA) [Mass fraction] 100 % Monika Staley MD UD-Rpuworyasu-Kno [address] [place] Work Phone: Comment on above: Source: 01-20-2020 16:39-0400 Systolic blood pressure 144 mm[Hg] Monika Staley MD LX-Wcaslbsizi-Csy [address] [place] Work Phone: Comment on above: Location: [facility]; Position: Sitting 11-06-2019 15:29-0400 BMI (Body Mass Index) 38.31 kg/m2 Monika Staley [facility] Work Phone: 11-06-2019 15:29-0400 Body Temperature 97.6 [degF] Monika Staley [facility] Work Phone: 11-06-2019 15:29-0400 Body weight 117.66 kg Monika Staley [facility] Work Phone: 11-06-2019 15:29-0400 BP Diastolic 62 mm[Hg] Monika Staley [facility] Work Phone: 11-06-2019 15:29-0400 BP Systolic 140 mm[Hg] Monika Staley [facility] [facility] Work Phone: 11-06-2019 15:29-0400 BSA (Body Surface Area) 2.31 m2 Monika Staley [facility] Work Phone: 11-06-2019 15:290400 Height 175.26 cm Monika Staley [facility] Work Phone: Encounters Encounter Date Encounter Type Care Provider Facility Start: 12-01-2024 ambulatory Shiela Luís Facili ty:[facility] Start: 11-28-2024 ambulatory Shiela Luís Facili ty:[facility] Start: 11-27-2024 ambulatory Shiela Luís Facili ty:[facility] Start: 11-24-2024 ambulatory Shiela Luís Facili ty:[facility] Start: 11-20-2024 ambulatory Shiela Luís Facili ty:[facility] Start: 11-17-2024 ambulatory Shiela Luís Facili ty:[facility] Start: 11-13-2024 ambulatory Shiela Luís Facili ty:[facility] Start: 11-10-2024 ambulatory Mahaveer Mukka flash OLS Facility:[facility] Start: 11-06-2024 ambulatory [place] [facility] Facility:[facility] Start: 11-03-2024 ambulatory Shiela Luís Facili ty:[facility] Start: 10-30-2024 ambulatory Shiela Ulís Facili ty:[facility] Start: 10-30-2024 Registered Referred Karon casillas MD [employer] Start: 10-27-[address] [facility] Facility:[facility] Start: 10-27-2024 Registered Referred Karon casillas MD [employer] Start: 10-23-2024 ambulatory Shiela Luís Facili ty:[facility] Start: 10-23-2024 Registered Referred Karon casillas MD -[facility] [employer] Start: 10-20-2024 ambulatory Karon vidales OLS Facility:[facility] Start: 10-20-2024 Registered Referred Karon casillas MD -[facility] [employer] Start: 10-16-2024 ambulatory Shiela Luís Facili ty:[facility] Start: 10-16-2024 Registered Referred Karon casillas MD -[facility] [employer] Start: 10-13-2024 ambulatory Shiela Lusí Facili ty:[facility] Start: 10-13-2024 Registered Referred Carlos Reeder [employer] Start: 10-09-2024 ambulatory Shiela Luís Facili ty:[facility] Start: 10-09-2024 Registered Referred [facility] [employer] Start: 10-06-2024 ambulatory Shiela Luís Facili ty:[facility] Start: 10-06-2024 Registered Referred Carlos Reeder [employer] Start: 10-02-2024 ambulatory Shiela Luís Facili ty:[facility] Start: 10-02-2024 Registered Referred [facility] [employer] Start: 09-30-2024 End: 09-30-[address] Monika Staley MD Work Phone: [facility] Work Phone: Start: 09-30-2024 End: 09-30-2024 Departed Referred [facility] [employer] Start: 09-30-2024 Registered Referred Karon [facility] [employer] Start: 09-30-2024 End: 09-30-2024 ambulatory Karon NOVAK Facility:[facility] Start: 09-25-2024 ambulatory Shiela Luís Facili ty:[facility] Start: 09-25-2024 Registered Referred Karon casillas MD -[employer] [employer] Start: 09-22-2024 End: 09-22-[address] Monika Staley MD Work Phone: -[facility] [employer] Start: 09-22-2024 End: 09-22-2024 Departed Referred Karon Corrales MD -[employer] Start: 09-22-2024 Registered Referred Karon casillas MD -[employer] Start: 09-22-2024 End: 09-22-2024 ambulatory Monika Staley Facility:[facility] Start: 09-18-2024 End: 09-18-[address] Monika Staley MD Work Phone: -[facility] [employer] Start: 09-18-2024 End: 09-18-2024 Departed Referred Karon Corrales MD -[facility] [employer] Start: 09-18-2024 Registered Referred Karon casillas MD -[facility] [employer] Start: 09-18-2024 End: 09-18-2024 ambulatory Monika Staley Facility:[facility] Start: 09-15-2024 End: 09-15-[address] Monika Staley MD Work Phone: [facility] Work Phone: Start: 09-15-2024 End: 09-15-2024 Departed Referred Carlos Cavazos -[facility] [employer] Start: 09-15-2024 Registered Referred Carlos Cavazos - [employer] Start: 09-15-2024 End: 09-15-2024 ambulatory Monika Staley Facility:[facility] Start: 09-11-2024 ambulatory Monika Staley [facility] ty:[facility] Start: 09-11-2024 Registered Referred Karon casillas MD -[employer] Start: 09-08-2024 End: 09-08-[address] Monika Staley MD Work Phone: [facility] Work Phone: Start: 09-08-2024 End: 09-08-2024 Departed Referred Karon Corrales MD -[facility] [employer] Start: 09-08-2024 Registered Referred Karon casillas MD -[employer] Start: 09-08-2024 End: 09-08-2024 ambulatory Karon NOVAK Facility:[facility] Start: 09-04-2024 End: 09-04-2024 Departed Referred Carlos Cavazos -[facility] [employer] Start: 09-04-2024 Registered Referred Carlos Cavazos - [employer] Start: 09-04-2024 End: 09-04-2024 ambulatory Monika Staley Facility:[facility] Start: 09-01-2024 End: 09-01-[address] Monika Staley MD Work Phone: [facility] Work Phone: Start: 09-01-2024 End: 09-01-2024 Departed Referred Carlos Cavazos -[facility] [employer] Start: 09-01-2024 Registered Referred Carlos Cavazos - [employer] Start: 09-01-2024 End: 09-01-2024 ambulatory Monika Staley Facility:[facility] Start: 08-28-2024 End: 08-28-[address] Monika Staley MD Work Phone: [facility] Work Phone: Start: 08-28-2024 End: 08-28-2024 Departed Referred Carlos [employer] Start: 08-28-2024 Registered Referred Carlos Ricks [employer] Start: 08-28-2024 End: 08-28-2024 ambulatory Monika Staley Facility:[facility] Start: 08-25-2024 End: 08-25-[address] Monika Staley MD Work Phone: [facility] Work Phone: Start: 08-25-2024 End: 08-25-2024 Departed Referred Karon Corrales MD -[employer] [employer] Start: 08-25-2024 Registered Referred Karon casillas MD -[facility] [employer] Start: 08-25-2024 End: 08-25-2024 ambulatory Karon NOVAK Facility:[facility] Start: 08-21-2024 End: 08-21-[address] Monika Staley MD Work Phone: [facility] Work Phone: Start: 08-21-2024 End: 08-21-2024 Departed Referred Karon Corrales MD -[employer] Start: 08-21-2024 Registered Referred Karon casillas MD -[employer] Start: 08-21-2024 End: 08-21-2024 ambulatory Monika Staley Facility:[facility] Start: 08-18-2024 End: 08-18-[address] Monika Staley MD Work Phone: [facility] Work Phone: Start: 08-18-2024 End: 08-18-2024 Departed Referred Karon Corrales MD -[employer] Start: 08-18-2024 Registered Referred Karon casillas MD -[employer] Start: 08-18-2024 End: 08-18-2024 ambulatory Monika Staley Facility:[facility] Start: 08-14-2024 End: 08-14-[address] Monika Staley MD Work Phone: [facility] Work Phone: Start: 08-14-2024 End: 08-14-2024 Departed Referred [facility] [employer] Start: 08-14-2024 Registered Referred Karon casillas MD -[facility] [employer] Start: 08-14-2024 End: 08-14-[facility]24 [facility] Start: 08-11-2024 End: 08-11-2024 Departed Referred Karon Corrales MD -[facility] [employer] Start: 08-11-2024 Registered Referred Karon casillas MD -[employer] Start: 08-11-2024 End: 08-11-2024 [facility] Start: 08-07-2024 End: 08-07-2024 Departed Referred Carlos Cavazos -[employer] Start: 08-07-2024 Registered Referred Carlos Cavazos - [employer] Start: 08-07-2024 End: 08-07-2024 [facility] Start: 08-04-2024 End: 08-04-[address] Monika Staley MD Work Phone: [facility] Work Phone: Start: 08-04-2024 End: 08-04-2024 Departed Referred Carlos Cavazos -[employer] Start: 08-04-2024 Registered Referred Carlos Reeder [employer] Start: 08-04-2024 End: 08-04-2024 ambulatory [facility] Lu[facility] Facility:[facility] Start: 07-31-2024 End: 07-31-[address] Monika Staley MD Work Phone: [facility] Work Phone: Start: 07-31-2024 End: 07-31-2024 Departed Referred Karon Corrales MD -[facility] [employer] Start: 07-31-2024 Registered Referred Karon casillas MD -[facility] [employer] Start: 07-31-2024 End: 07-31-2024 ambulatory Karon NOVAK Facility:[facility] Start: 07-28-2024 End: 07-28-[address] Monika Staley MD Work Phone: [facility] Work Phone: Start: 07-28-2024 End: 07-28-2024 Departed Referred Karon Corrales MD -[facility] [employer] Start: 07-28-2024 Registered Referred Karon casillas MD -[employer] Start: 07-28-2024 End: 07-28-2024 ambulatory Monika Staley Facility:[facility] Start: 07-25-2024 End: 07-25-[address] Monika Staley MD Work Phone: [facility] Work Phone: Start: 07-25-2024 End: 07-25-2024 Departed Referred Carlos Cavazos -[employer] Start: 07-25-2024 Registered Referred Carlos Cavazos - [employer] Start: 07-24-2024 End: 07-25-[address] Monika Staley MD Work Phone: [facility] Work Phone: Start: 07-24-2024 End: 07-24-2024 Departed Referred Karon Corrales MD -[employer] Start: 07-24-2024 Registered Referred Karon casillas MD -[facility] [employer] Start: 07-24-2024 End: 07-24-2024 ambulatory Karon NOVAK Facility:[facility] Start: 07-21-2024 End: 07-21-[address] Monika Staley MD Work Phone: [facility] Work Phone: Start: 07-21-2024 End: 07-21-2024 Departed Referred Karon Corrales MD -[facility] [employer] Start: 07-21-2024 Registered Referred Karon casillas MD -[employer] Start: 07-21-2024 End: 07-21-2024 ambulatory Shiela Lu[facility] [place] Start: 07-17-2024 End: 07-17-[address] Monika Staley MD Work Phone: [facility] [place] Work Phone: Start: 07-17-2024 End: 07-17-2024 Departed Referred Karon Corrales MD -[employer] Start: 07-17-2024 Registered Referred Karon casillas MD -[facility] [employer] Start: 07-17-2024 End: 07-17-2024 ambulatory Karon NOVAK Facility:[facility] [place] Start: 07-14-2024 End: 07-14-[address] Monika Staley MD Work Phone: [facility] [place] Work Phone: Start: 07-14-2024 End: 07-14-2024 Departed Referred Carlos [employer] [employer] Start: 07-14-2024 Registered Referred Carlos Reeder [employer] Start: 07-14-2024 End: 07-14-2024 ambulatory Shiela Stuart Facility:[facility] [place] Start: 07-11-2024 End: 07-11-[address] Monika Staley MD Work Phone: [facility] [place] Work Phone: Start: 07-11-2024 End: 07-11-2024 Departed Referred [facility] [employer] Start: 07-11-2024 Registered Referred Carlos [facility] [employer] Start: 07-11-2024 End: 07-11-2024 ambulatory Monika Staley Facility:[facility] [place] Start: 07-07-2024 End: 07-07-[address] Monika Staley MD Work Phone: [facility] [place] Work Phone: Start: 07-07-2024 End: 07-07-2024 Departed Referred Karon Corrales MD -[facility] [employer] Start: 07-07-2024 Registered Referred [facility] -[facility] [employer] Start: 07-07-2024 End: 07-07-2024 ambulatory Karon NOVAK Facility:[facility] [place] Start: 07-03-2024 End: 07-03-[address] Monika Staley MD Work Phone: [facility] [place] Work Phone: Start: 07-03-2024 End: 07-03-2024 Departed Referred Kvng Crisostomo MD -[facility] [employer] Start: 07-03-2024 Registered Referred Kvng Crisostomo MD -[facility] [employer] Start: 07-03-2024 End: 07-03-2024 ambulatory Monika Staley Facility:[facility] [place] Start: 06-30-2024 End: 06-30-[address] Monika Staley MD Work Phone: [facility] [place] Work Phone: Start: 06-30-2024 End: 06-30-2024 Departed Referred Kvng Crisostomo MD -[facility] [employer] Start: 06-30-2024 Registered Referred Kvng Crisostomo MD -[facility] [employer] Start: 06-30-2024 End: 06-30-2024 ambulatory Monika Staley Facility:[facility] [place] Start: 06-26-2024 ambulatory Monika Staley Facili ty:[facility] [place] Start: 06-26-2024 Registered Referred Kvng Crisostomo MD -[facility] [employer] Start: 06-23-2024 End: 06-23-[address] Monika Staley MD Work Phone: [facility] [place] Work Phone: Start: 06-23-2024 End: 06-23-2024 Departed Referred Carlos Cavazos [facility] Start: 06-23-2024 Registered Referred Carlos [facility] [employer] Start: 06-23-2024 End: 06-23-[address] [facility] Facility:[facility] [place] Start: 06-19-2024 End: 06-19-[address] Monika Staley MD Work Phone: [facility] [place] Work Phone: Start: 06-19-2024 End: 06-19-2024 Departed Referred Kvng Crisostomo MD -[facility] [employer] Start: 06-19-2024 Registered Referred Kvng Crisostomo MD -[employer] [employer] Start: 06-19-2024 End: 06-19-2024 [facility] [place] Start: 06-16-2024 End: 06-16-[address] Monika Staley MD Work Phone: [facility] [place] Work Phone: Start: 06-16-2024 End: 06-16-2024 Departed Referred Kvng Crisostomo MD -[facility] [employer] Start: 06-16-2024 Registered Referred Kvng Crisostomo MD -[employer] [employer] Start: 06-16-2024 End: 06-16-[address] [facility] Facility:[facility] [place] Start: 06-12-2024 End: 06-12-[address] Monika Staley MD Work Phone: [facility] [place] Work Phone: Start: 06-12-2024 End: 06-12-2024 Departed Referred Kvng Crisostomo MD -[employer] [employer] Start: 06-12-2024 Registered Referred Kvng [employer] Start: 06-12-2024 End: 06-12-2024 ambulatory Monika Staley Facility:[facility] [place] Start: 06-09-2024 End: 06-09-[address] Monika Staley MD Work Phone: [facility] [place] Work Phone: Start: 06-09-2024 End: 06-09-2024 Departed Referred Carlos Cavazos -[employer] [employer] Start: 06-09-2024 Registered Referred Carlos Cavazos - [employer] Start: 06-09-2024 End: 06-09-2024 ambulatory Monika Staley Facility:[facility] [place] Start: 06-05-2024 End: 06-05-[address] Monika Staley MD Work Phone: [facility] [place] Work Phone: Start: 06-05-2024 End: 06-05-2024 Departed Referred Kvng Crisostomo MD -[employer] Start: 06-05-2024 End: 06-05-2024 ambulatory Shiela Stuart Facility:[facility] [place] Start: 06-02-2024 End: 06-02-[address] Monika Staley MD Work Phone: [facility] [place] Work Phone: Start: 06-02-2024 End: 06-02-2024 Departed Referred Kvng Crisostomo MD -[employer] Start: 06-02-2024 Registered Referred Kvng Crisostomo MD -[employer] Start: 06-02-2024 End: 06-02-2024 ambulatory Monika Staley Facility:[facility] [place] Start: 05-29-2024 End: 05-29-[address] Monika Staley MD Work Phone: [facility] [place] Work Phone: Start: 05-29-2024 End: 05-29-2024 Departed Referred Kvng Crisostomo MD -[employer] Start: 05-29-2024 Registered Referred Kvng Crisostomo MD -[facility] [employer] Start: 05-29-2024 End: 05-29-2024 ambulatory Shiela Luís Facility:[facility] [place] Start: 05-26-2024 End: 05-26-[address] Monika Staley MD Work Phone: [facility] [place] Work Phone: Start: 05-26-2024 End: 05-26-2024 Departed Referred Carlos Cavazos [facility] [employer] Start: 05-26-2024 Registered Referred Carlos Cavazos - [employer] Start: 05-26-2024 End: 05-26-[address] [facility] Facility:[facility] [place] Start: 05-22-[address] [facility] Facili ty:[facility] [place] Start: 05-22-2024 Registered Referred Kvng Crisostomo MD -[employer] [employer] Start: 05-20-2024 End: 05-20-2024 Departed Referred Kvng Crisostomo MD -[facility] [employer] Start: 05-19-2024 End: 05-20-2024 [facility] [place] Start: 05-19-2024 Registered Referred Kvng Crisostomo MD -[employer] Start: 05-15-2024 End: 05-15-2024 Departed Referred Kvng Crisostomo MD -[employer] [employer] Start: 05-15-2024 End: 05-15-[address] [facility] Facility:[facility] [place] Start: 05-12-2024 End: 05-12-2024 Departed Referred Carlos [employer] [employer] Start: 05-12-2024 End: 05-12-[address] [facility] Facility:[facility] [place] Start: 05-09-2024 End: 05-09-2024 Departed Referred Kvng Crisostomo MD -[employer] Start: 05-09-2024 End: 05-09-2024 ambulatory Kvng NOVAK Facility:[facility] [place] Start: 05-08-2024 End: 05-08-2024 Departed Referred Kvng Crisostomo MD -[facility] [employer] Start: 05-08-2024 End: 05-08-2024 ambulatory Shiela Luís Facility:[facility] [place] Start: 05-05-2024 End: 05-05-2024 Departed Referred Kvng Crisostomo MD -[employer] Start: 05-05-2024 End: 05-05-2024 ambulatory Shiela Luís Facility:[facility] [place] Start: 05-01-2024 End: 05-01-2024 Departed Referred [facility]ng Re[facility] [employer] Start: 05-01-2024 End: 05-01-2024 ambulatory Kvng NOVAK Facility:[facility] [place] Start: 04-28-2024 End: 04-28-2024 Departed Referred Carlos Cavazos -[employer] Start: 04-28-2024 End: 04-28-2024 [facility] [place] Start: 04-24-2024 End: 04-24-2024 Departed Referred Kvng Crisostomo MD -[employer] Start: 04-24-2024 End: 04-24-2024 ambulatory Kvng NOVAK Facility:[facility] [place] Start: 04-21-2024 End: 04-21-2024 Departed Referred Carlos Cavazos -[employer] Start: 04-21-2024 End: 04-21-[facility] [place] Start: 04-17-[facility]24 [facility] [place] Start: 04-17-2024 Registered Referred [facility] [employer] Start: 04-14-2024 ambulatory Shiela Luís Facili ty:[facility] [place] Start: 04-14-2024 Registered Referred [facility] [employer] Start: 04-10-2024 End: 04-10-2024 Departed Referred Babbaljeet Crisostomo MD -[facility] [employer] Start: 04-10-2024 End: 04-10-2024 ambulatory Shiela Luís Facility:[facility] [place] Start: 04-07-2024 End: 04-07-2024 Departed Referred Carlos Cavazos [facility] [employer] Start: 04-07-2024 End: 04-07-2024 ambulatory Shiela Luís Facility:[facility] [place] Start: 04-04-2024 ambulatory Shiela Luís Facili ty:[facility] [place] Start: 04-04-2024 Registered Referred Kvng Crisostomo MD -[employer] Start: 03-31-2024 End: 03-31-2024 Departed Referred Carlos Cavazos -[employer] [employer] Start: 03-31-2024 End: 03-31-2024 ambulatory Shiela Luís Facility:[facility] [place] Start: 03-27-2024 End: 03-27-2024 Departed Referred [facility] [employer] Start: 03-27-2024 End: 03-27-2024 ambulatory Shiela Luís Facility:[facility] [place] Start: 03-24-2024 End: 03-24-2024 Departed Referred Kvng Crisostomo MD -[facility] [employer] Start: 03-24-2024 End: 03-24-2024 ambulatory Shiela Luís Facility:[facility] [place] Start: 03-20-2024 End: 03-20-2024 Departed Referred [facility] [employer] Start: 03-20-2024 End: 03-20-2024 ambulatory Shiela Luís Facility:[facility] [place] Start: 03-19-2024 End: 03-19-2024 Departed Referred Kvng Crisostomo MD -[facility] [employer] Start: 03-19-2024 End: 03-19-2024 ambulatory Kvng NOVAK Facility:[facility] [place] Start: 03-18-2024 End: 03-18-2024 Departed Referred [facility] [employer] Start: 03-18-2024 End: 03-18-2024 ambulatory Shiela Luís Facility:[facility] [place] Start: 03-17-2024 End: 03-17-2024 [facility] Start: 03-17-2024 End: 03-17-2024 ambulatory Shiela Luís Facility:[facility] [place] Start: 03-14-2024 End: 03-14-2024 [facility]ed [facility] [employer] [facility] Start: 03-14-2024 End: 03-14-2024 ambulatory Carlos Abdelrahmanviri NOVAK Facility:[facility] [place] Start: 03-13-2024 End: 03-13-2024 Departed Referred [facility] Start: 03-13-2024 End: 03-13-2024 ambulatory Shiela Luís Facility:[facility] [place] Start: 03-10-2024 End: 03-10-2024 ambulatory Shiela Luís Facility:[facility] [place] Start: 03-06-2024 End: 03-06-2024 ambulatory Shiela Luís Facility:[facility] [place] Start: 03-03-2024 End: 03-03-2024 ambulatory Shiela Luís Facility:[facility] [place] Start: 02-28-2024 End: 02-28-2024 ambulatory Shiela Luís Facility:[facility] [place] Start: 02-25-2024 End: 02-25-2024 ambulatory Shiela Luís Facility:[facility] [place] Start: 02-21-2024 End: 02-21-2024 ambulatory Shiela Luís Facility:[facility] [place] Start: 02-18-2024 End: 02-18-2024 ambulatory Shiela Luís Facility:[facility] [place] Start: 02-14-2024 End: 02-14-2024 ambulatory Shiela Luís Facility:[facility] [place] Start: 02-12-2024 End: 02-12-2024 ambulatory Shiela Luís Facility:[facility] [place] Start: 02-11-2024 End: 02-11-2024 ambulatory Shiela Luís Facility:[facility] [place] Start: 02-08-2024 End: 02-08-2024 ambulatory Shiela Luís Facility:[facility] [place] Start: 02-07-2024 End: 02-07-2024 ambulatory Shiela Luís Facility:[facility] [place] Start: 02-04-2024 End: 02-04-2024 ambulatory Shiela Luís Facility:[facility] [place] Start: 02-01-2024 ambulatory Shiela Luís Facili ty:[facility] [place] Start: 01-30-2024 End: 01-30-2024 ambulatory Shiela Luís Facility:[facility] [place] Start: 01-29-2024 End: 01-29-2024 ambulatory Shiela Luís Facility:[facility] [place] Start: 01-21-2024 End: 01-21-2024 ambulatory Shiela Luís Facility:[facility] [place] Start: 01-14-2024 End: 01-14-2024 ambulatory Shiela Luís Facility:[facility] [place] Start: 01-11-2024 ambulatory Shiela Luís Facili ty:[facility] [place] Start: 01-10-2024 End: 01-10-2024 ambulatory Shiela Luís Facility:[facility] [place] Start: 01-08-2024 End: 01-08-2024 ambulatory Shiela Luís Facility:[facility] [place] Start: 01-01-2024 End: 01-02-2024 ambulatory Shiela Luís Facility:[facility] [place] Start: 12-27-2023 End: 12-27-2023 ambulatory Shiela Luís Facility:[facility] [place] Start: 12-24-2023 End: 12-24-2023 ambulatory Shiela Ulís Facility:[facility] [place] Start: 12-17-2023 End: 12-17-2023 ambulatory Shiela Luís Facility:[facility] [place] Start: 12-04-2023 End: 12-04-2023 ambulatory Shiela Luís Facility:[facility] [place] Start: 12-03-2023 End: 12-03-2023 ambulatory Shiela Luís Facility:[facility] [place] Start: 09-13-2023 End: 09-13-2023 ambulatory [facility] Start: 09-13-2023 End: 09-13-2023 Office outpatient visit 25 minutes Rebecca Buck MD Work Phone: [employer] [facility] Comment on above: Left flank pain (Christina magui Dx); BPH with urinary obstruction; History of kidney stones Start: 09-06-2023 End: 09-07-2023 ambulatory [facility] Start: 09-06-2023 End: 09-06-2023 Subsequent hospital visit by physician Rebecca Buck MD Work Phone: [facility] CT Imaging Comment on above: Left flank pain; Calculus of ureter Start: 08-31-2023 ambulatory Eloise Stern RN [facility] Clinical Communication Start: 08-31-2023 Patient encounter procedure Eloise Stern RN [facility] Clinical Communication Start: 08-21-2023 Telephone encounter Rebecca Buck MD Work Phone: [facility] Clinical Communication Comment on above: CT appt [facility] advice Start: 08-21-2023 Registered Referred [facility] Start: 08-13-2023 End: 08-13-2023 ambulatory [facility] Start: 08-13-2023 End: 08-13-2023 Office outpatient new 45 minutes Rebecca Buck MD Work Phone: [employer] [facility] Comment on above: Left flank pain (Christina magui Dx); Calculus of ureter; Disease of prostate; BPH with urinary obstruction Start: 08-03-2023 End: 08-03-2023 [facility] Work Phone: Start: 08-03-2023 End: 08-03-2023 Departed Referred [facility] [employer] Start: 07-20-2023 End: 07-20-2023 [facility] Work Phone: Start: 07-20-2023 End: 07-20-2023 Departed Referred [facility] Start: 07-20-2023 Registered Referred [facility] Start: 07-18-2023 End: 07-18-2023 ambulatory [facility] [place] Work Phone: Start: 07-18-2023 End: 07-18-2023 [facility] Start: 07-18-2023 Registered Referred [facility] [place] [facility] [employer] Start: 07-16-2023 End: 07-16-2023 ambulatory [facility] [place] Work Phone: Start: 07-16-2023 End: 07-16-2023 [facility] Start: 07-16-2023 [facility] [facility] Start: 07-13-2023 End: 07-13-2023 ambulatory [facility] [place] Work Phone: Start: 07-13-2023 End: 07-13-2023 [facility] Start: 07-13-2023 [facility] Start: 07-12-2023 End: 07-12-2023 ambulatory [facility] [place] Work Phone: Start: 07-12-2023 End: 07-12-2023 [facility] Start: 07-12-2023 [facility] Start: 07-05-2023 End: 07-05-2023 ambulatory [facility] [place] Work Phone: Start: 07-05-2023 End: 07-05-2023 [facility] Start: 07-05-2023 [facility] Start: 07-02-2023 [facility] Start: 06-28-2023 End: 06-28-2023 ambulatory [facility] [place] Work Phone: Start: 06-28-2023 End: 06-28-2023 [facility] Start: 06-28-2023 [facility] Start: 06-25-2023 Telephone encounter Rebecca Buck MD Work Phone: [employer] [facility] Start: 06-25-2023 End: 06-25-2023 ambulatory [facility] [place] Work Phone: Start: 06-25-2023 End: 06-25-2023 [facility] Start: 06-25-2023 [facility] [employer] [facility] Start: 06-21-2023 End: 06-21-2023 ambulatory [facility] [place] Work Phone: Start: 06-21-2023 End: 06-21-2023 [facility] Start: 06-21-2023 [facility] Start: 06-13-2023 End: 06-13-2023 ambulatory [facility] [place] Work Phone: Start: 06-13-2023 End: 06-13-2023 [facility] Start: 06-06-2023 End: 06-06-2023 ambulatory [facility] [place] Work Phone: Start: 06-06-2023 End: 06-06-2023 [facility] Start: 06-06-2023 [facility] Start: 05-23-2023 End: 05-23-2023 ambulatory [facility] [place] Work Phone: Start: 05-23-2023 End: 05-23-2023 [facility] Start: 05-09-2023 End: 05-09-2023 [facility] Start: 05-09-2023 [facility] [facility] Start: 04-23-2023 End: 04-23-2023 [facility] [employer] [facility] Start: 04-09-2023 End: 04-09-2023 ambulatory [facility] [place] Work Phone: Start: 04-09-2023 End: 04-09-2023 [facility] [employer] [facility] Start: 04-09-2023 [facility] Start: 04-02-2023 End: 04-02-2023 ambulatory [facility] [place] Work Phone: Start: 04-02-2023 End: 04-02-2023 [facility] [employer] [facility] Start: 04-02-2023 [facility] Start: 03-26-2023 End: 03-26-2023 ambulatory [facility] [place] Work Phone: Start: 03-26-2023 End: 03-26-2023 [facility] Start: 03-26-2023 [facility] Start: 03-22-2023 End: 03-22-2023 ambulatory [facility] [place] Work Phone: Start: 03-22-2023 End: 03-22-2023 [facility] Start: 03-22-2023 [facility] Start: 03-08-2023 End: 03-08-2023 ambulatory [facility] [place] Work Phone: Start: 03-08-2023 End: 03-08-2023 [facility] Start: 02-22-2023 End: 02-22-2023 ambulatory [facility] [place] Work Phone: Start: 02-22-2023 End: 02-22-2023 [facility] Start: 02-22-2023 [facility] [employer] Start: 02-15-2023 End: 02-15-2023 ambulatory [facility] [place] Work Phone: Start: 02-15-2023 End: 02-15-2023 Departed Referred [facility] [place] [employer] Start: 02-15-2023 [facility] Start: 02-08-2023 End: 02-08-2023 ambulatory [facility] [place] Work Phone: Start: 02-08-2023 End: 02-08-2023 [facility] Start: 01-31-2023 End: 01-31-2023 ambulatory [facility] [place] Work Phone: Start: 01-31-2023 End: 01-31-2023 [facility] Start: 01-31-2023 Registered Ref[facility] [employer] Start: 01-29-2023 End: 01-29-2023 Departed Referred [facility] [employer] Start: 01-29-2023 Registered Referred [facility] [employer] Start: 01-26-2023 End: 01-26-2023 Departed Referred [facility] [place] [employer] Start: 01-26-2023 [facility] [employer] Start: 01-24-2023 End: 01-24-2023 Departed Referred [facility] [employer] Start: 01-24-2023 Registered Ref[facility] [employer] Start: 01-22-2023 End: 01-22-2023 ambulatory [facility] [place] Work Phone: Start: 01-22-2023 End: 01-22-2023 [facility] Start: 01-22-2023 Registered Ref[facility] [employer] Start: 01-10-2023 End: 01-10-2023 ambulatory [facility] [place] Work Phone: Start: 01-10-2023 End: 01-10-2023 [facility] Start: 01-10-2023 [facility] Start: 12-27-2022 End: 12-27-2022 ambulatory [facility] [place] Work Phone: Start: 12-27-2022 End: 12-27-2022 [facility] Start: 12-27-2022 [facility] Start: 12-21-2022 End: 12-21-2022 ambulatory [facility] [place] Work Phone: Start: 12-21-2022 End: 12-21-2022 [facility] Start: 12-21-2022 [facility] Start: 12-14-2022 End: 12-14-2022 ambulatory [facility] [place] Work Phone: Start: 12-14-2022 End: 12-14-2022 [facility] Start: 12-14-2022 [facility] Start: 12-07-2022 End: 12-07-2022 ambulatory [facility] [place] Work Phone: Start: 12-07-2022 End: 12-07-2022 [facility] Start: 12-07-2022 [facility] Start: 11-24-2022 End: 11-24-2022 ambulatory [facility] [place] Work Phone: Start: 11-24-2022 End: 11-24-2022 [facility] Start: 11-24-2022 Registered Referred [facility] [place] [facility] [employer] Start: 11-23-2022 End: 11-23-2022 ambulatory [facility] [place] Work Phone: Start: 11-23-2022 End: 11-23-2022 Departed Referred [facility] [place] [employer] Start: 11-23-2022 Registered Referred [facility] [place] [facility] [employer] Start: 11-22-2022 End: 11-22-2022 ambulatory [facility] [place] Work Phone: Start: 11-22-2022 End: 11-22-2022 [facility] Start: 11-22-2022 [facility] Start: 11-09-2022 End: 11-09-2022 ambulatory [facility] [place] Work Phone: Start: 11-09-2022 End: 11-09-2022 Departed Referred [facility] [place] [employer] Start: 11-09-2022 Registered Referred [facility] [place] [facility] [employer] Start: 10-26-2022 End: 10-26-2022 Departed Referred [facility] [place] Start: 10-26-2022 Registered Referred [facility] [place] [facility] [employer] Start: 10-12-2022 End: 10-12-2022 ambulatory [facility] [place] Work Phone: Start: 10-12-2022 End: 10-12-2022 Departed Referred [facility] [place] [employer] Start: 10-12-2022 [facility] [place] [facility] Start: 10-05-2022 End: 10-05-2022 Departed Referred [facility] Start: 10-05-2022 Registered Referred [facility] Start: 09-28-2022 End: 09-28-2022 ambulatory [facility] Work Phone: Start: 09-28-2022 End: 09-28-2022 Departed [facility] Start: 09-14-2022 End: 09-14-2022 Departed [facility]erred [facility] Start: 08-31-2022 End: 08-31-2022 [facility] Start: 08-31-2022 Registered [facility] Start: 08-23-2022 End: 08-23-2022 ambulatory [facility] Work Phone: Start: 08-23-2022 End: 08-23-2022 [facility] Start: 08-23-2022 [facility] Start: 08-17-2022 End: 08-17-2022 ambulatory [facility] Work Phone: Start: 08-17-2022 End: 08-17-2022 [facility] Start: 08-17-2022 Registered [facility] Start: 08-14-2022 End: 08-14-2022 ambulatory [facility] Work Phone: Start: 08-14-2022 End: 08-14-2022 [facility] Start: 08-14-2022 Registered [facility] Start: 07-31-2022 End: 07-31-2022 ambulatory [facility] Work Phone: Start: 07-31-2022 End: 07-31-2022 [facility] Start: 07-31-2022 [facility] Start: 07-24-2022 End: 07-24-2022 ambulatory [facility] Work Phone: Start: 07-24-2022 End: 07-24-2022 [facility] Start: 07-24-2022 Registered [facility] Start: 07-20-2022 End: 07-20-2022 [facility] Start: 07-20-2022 [facility] Start: 07-17-2022 End: 07-17-2022 [facility] Start: 07-17-2022 [facility] Start: 07-11-2022 [facility] Start: 07-10-2022 End: 07-10-2022 ambulatory [facility] Work Phone: Start: 07-10-2022 End: 07-10-2022 [facility] Start: 07-10-2022 [facility] Start: 07-03-2022 End: 07-03-2022 ambulatory [facility] Work Phone: Start: 07-03-2022 End: 07-03-2022 [facility] Start: 07-03-2022 [facility] Start: 06-27-2022 End: 06-27-2022 ambulatory [facility] Work Phone: Start: 06-27-2022 End: 06-27-2022 [facility] Start: 06-27-2022 [facility] Start: 06-13-2022 End: 06-13-2022 ambulatory [facility] Work Phone: Start: 06-13-2022 End: 06-13-2022 [facility] Start: 06-13-2022 [facility] Start: 06-06-2022 End: 06-06-2022 ambulatory [facility] Work Phone: Start: 06-06-2022 End: 06-06-2022 [facility] Start: 06-06-2022 [facility] Start: 05-30-2022 End: 05-30-2022 ambulatory [facility] Work Phone: Start: 05-30-2022 End: 05-30-2022 [facility] Start: 05-30-2022 [facility] Start: 05-16-2022 End: 05-16-2022 ambulatory [facility] Work Phone: Start: 05-16-2022 End: 05-16-2022 [facility] Start: 05-16-2022 [facility] Start: 05-02-2022 End: 05-02-2022 ambulatory [facility] Work Phone: Start: 05-02-2022 End: 05-02-2022 [facility] Start: 05-02-2022 [facility] Start: 04-27-2022 End: 04-27-2022 ambulatory [facility] Work Phone: Start: 04-27-2022 End: 04-27-2022 [facility] Start: 04-27-2022 [facility] Start: 04-26-2022 End: 04-26-2022 ambulatory [facility] Work Phone: Start: 04-26-2022 End: 04-26-2022 [facility] Start: 04-11-2022 End: 04-11-2022 ambulatory [facility] Work Phone: Start: 04-11-2022 End: 04-11-2022 [facility] Start: 03-28-2022 End: 03-28-2022 [facility] Start: 03-28-2022 [facility] Start: 03-23-2022 End: 03-23-2022 [facility] Start: 03-23-2022 [facility] Start: 03-16-2022 End: 03-16-2022 ambulatory [facility] Work Phone: Start: 03-16-2022 End: 03-16-2022 [facility] Start: 03-16-2022 [facility] Start: 03-09-2022 End: 03-09-2022 ambulatory [facility] Work Phone: Start: 03-09-2022 End: 03-09-2022 [facility] Start: 03-09-2022 [facility] Start: 03-06-2022 End: 03-06-2022 ambulatory [facility] Work Phone: Start: 03-06-2022 End: 03-06-2022 [facility] Start: 03-06-2022 [facility] Start: 03-02-2022 End: 03-03-2022 Emergency department patient visit UNKNOWN PROVIDER [facility] Start: 03-02-2022 End: 03-02-2022 Emergency department patient visit Lanette Munguia DO Work Phone: [facility] Emergency Dept Comment on above: Fall, initial encoun ter (Primary Dx); Anticoagulated Start: 02-20-2022 End: 02-20-2022 Departed [facility] Start: 02-20-2022 Registered Ref[facility] Start: 02-13-2022 End: 02-13-2022 ambulatory [facility] Work Phone: Start: 02-13-2022 End: 02-13-2022 Departed Referred [facility] Start: 02-13-2022 Registered [facility] Start: 02-06-2022 End: 02-06-2022 ambulatory [facility] Work Phone: Start: 02-06-2022 End: 02-06-2022 Departed [facility] Start: 02-06-2022 Registered Referred [facility] Start: 01-30-2022 End: 01-30-2022 Departed Referred [facility] Start: 01-30-2022 Registered Referred [facility] Start: 01-26-2022 End: 01-26-2022 ambulatory [facility] Work Phone: Start: 01-26-2022 End: 01-26-2022 Departed Referred [facility] Start: 01-26-2022 Registered Referred [facility] Start: 01-19-2022 End: 01-19-2022 ambulatory [facility] Work Phone: Start: 01-19-2022 End: 01-19-2022 Departed [facility] Start: 01-19-2022 Registered Referred [facility] Start: 01-17-2022 ambulatory Carlos Armendariz [facility] Start: 01-10-2022 ambulatory Carlos Cavazos Elenavanessa [facility] Start: 01-10-2022 End: 01-10-2022 ambulatory [facility] Work Phone: Start: 01-10-2022 End: 01-10-2022 [facility] Start: 01-10-2022 [facility] Start: 01-06-2022 AUDIT Monika Elias rt Work Phone: [facility] Work Phone: Start: 01-05-2022 End: 01-05-2022 [facility] Start: 01-05-2022 [facility] Start: 12-30-2021 End: 12-30-2021 [facility]ed [facility] Start: 12-30-2021 [facility] Start: 12-28-2021 End: 12-28-2021 ambulatory [facility] Work Phone: Start: 12-28-2021 End: 12-28-2021 [facility] Start: 12-28-2021 [facility] Start: 12-26-2021 End: 12-26-2021 ambulatory [facility] Work Phone: Start: 12-26-2021 End: 12-26-2021 [facility]ed [facility] Start: 12-26-2021 [facility] Start: 12-22-2021 End: 12-22-2021 ambulatory [facility] Work Phone: Start: 12-22-2021 End: 12-22-2021 [facility]ed [facility] Start: 12-22-2021 [facility] Start: 12-22-2021 End: 12-22-2021 [facility] Start: 12-21-2021 End: 12-22-2021 Emergency department patient visit Sharon Olivia MD Work Phone: [facility] Emergency Dept Comment on above: Heel ulceration, lef t, with unspecified severity (HCC) (Primary Dx) Start: 12-19-2021 End: 12-19-2021 ambulatory [facility] Work Phone: Start: 12-19-2021 End: 12-19-2021 Departed [facility]erred [facility] Start: 12-19-2021 Registered Referred [facility] Start: 12-12-2021 End: 12-12-2021 ambulatory [facility] Work Phone: Start: 12-12-2021 End: 12-12-2021 [facility]ed [facility] Start: 12-12-2021 [facility] Start: 12-08-2021 End: 12-08-2021 ambulatory [facility] Work Phone: Start: 12-08-2021 End: 12-08-2021 [facility] Start: 12-08-2021 [facility] Start: 12-05-2021 End: 12-05-2021 ambulatory [facility] Work Phone: Start: 12-05-2021 End: 12-05-2021 [facility] Start: 12-05-2021 [facility] Start: 12-01-2021 End: 12-01-2021 [facility]ed [facility] Start: 12-01-2021 [facility] [employer] Start: 11-28-2021 End: 11-28-2021 [facility]ed [facility] Start: 11-28-2021 Registered [facility] Start: 11-25-2021 Rx Renewal Monika Horner Jada rt Work Phone: [id number] Work Phone: Start: 11-23-2021 End: 11-23-2021 [facility]ed [facility] Start: 11-23-2021 [facility] Start: 11-22-2021 End: 11-22-2021 [facility]ed [facility] Start: 11-22-2021 Registered [facility] Start: 11-21-2021 End: 11-21-2021 [facility]ed [facility] Start: 11-15-2021 AUDIT Shiela Jada rt Work Phone: [facility] Work Phone: Start: 11-14-2021 End: 11-14-2021 [facility]ed [facility] Start: 11-14-2021 Reg[facility] Start: 11-08-2021 End: 11-08-2021 Dep[facility]ed [facility] Start: 11-08-2021 Registered [facility] Start: 11-04-2021 End: 11-04-2021 [facility]ed [facility] Start: 11-04-2021 [facility] Start: 10-31-2021 End: 11-01-2021 Emergency department patient visit UNKNOWN PROVIDER [facility] Start: 10-31-2021 End: 11-01-2021 Emergency department patient visit Dante Kim MD Work Phone: [facility] Emergency Dept Comment on above: Other fatigue (Prima ry Dx) Start: 10-31-2021 End: 10-31-2021 Departed Referred [facility] Start: 10-21-2021 End: 10-29-2021 Evaluation and management of inpatient UNKNOWN PROVIDER [facility] Start: 10-21-2021 End: 10-29-2021 Evaluation and management of inpatient Lisa Michelle DO Work Phone: [facility] Comment on above: Leg swelling (Primar y Dx); Acute deep vein thrombosis (DVT) of proximal vein of lower extremity, unspecified laterality (HCC) Start: 10-20-2021 End: 10-20-2021 Departed Referred [facility] [employer] Start: 10-17-2021 Telephone encounter Nicole davis MD Work [facility]: [facility] Comment on above: Missed Appointment Start: 09-19-2021 End: 09-19-2021 Departed Referred [facility] [employer] Start: 11-02-2020 AUDIT Monika Elias rt Work Phone: [facility] Work Phone: Start: 10-27-2020 AUDIT Monika Elias rt Work Phone: [facility] Work Phone: Start: 07-13-2020 Patient encounter procedure Monika Staley [facility] Work Phone: Start: 04-13-2020 Patient encounter procedure Wing Ritter [facility] Work Phone: Start: 04-07-2020 Patient encounter procedure Wing Ritter [facility] Work Phone: Start: 03-18-2020 Patient encounter procedure Wing Ritter [facility] Work Phone: Start: 01-20-2020 Patient [...] Start: 10-26-2021 Electroencephalogram w/rec awake&asleep Sarina Pineda SAL[employer]TE MANAGER - INSURANCE ADVISER Work Phone: Start: 10-26-2021 Ct head/brain w/o co ntrast material Sarina Pineda SALES SERVICE ROUTE MANAGER - INSURANCE ADVISER Work Phone: Start: 10-26-2021 Prothrombin time Andres Sheridan MD Work Phone: Start: 10-25-2021 Speech and language therapy regime Sarina Isabel Edwin SALES SERVICE ROUTE MANAGER - INSURANCE ADVISER Work Phone: Start: 10-25-2021 Prothrombin time Andres [...] Blood count reticulo cyte automated Ellen Scherer SALES SERVICE ROUTE MANAGER - INSURANCE ADVISER Work Phone: Start: 10-21-2021 C-reactive protein Doloresua juan c Scherer SALES SERVICE ROUTE MANAGER - INSURANCE ADVISER Work Phone: Start: 10-21-2021 Non-invas physiologi c std extremity art 2 level Shruthi Malik SALES SERVICE ROUTE MANAGER - INSURANCE ADVISER Work Phone: Start: 10-21-2021 Radex calcaneus mini mum 2 views Shruthi Malik SALES SERVICE ROUTE MANAGER - INSURANCE ADVISER Work Phone: Start: 10-21-2021 Dup-scan xtr veins [...] Comment: Speci men Type: BLOOD SPECIMENOrdering Facility: [facility] Address: [address] [place] [address] Performed By: #### T SCR ####[facility] BLOOD BANKCLIA [id number] [address] Start: 08-04-2021 Antibody screen Comment on above: Order Comment: Speci men Type: BLOOD SPECIMENOrdering Facility: [facility] Address: [address] [place] [address] Performed By: #### T SCR ####[facility] BLOOD BANKCLIA [id number] [address] Start: 08-01-2021 Antibody screen Comment on above: Order Comment: Speci men Type: BLOOD SPECIMENOrdering Facility: [facility] Address: [address] [place] [address] Performed By: #### T SCR ####[facility] BLOOD BANKCLIA [id number] [address] Start: 06-07-2021 Antibody screen Comment on above: Order Comment: Speci men Type: BLOOD SPECIMEN Performed By: #### T SCR ####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 Monika Staley Urine culture Plan of Treatment Date Care Activity Detail Author Start: 09-22-2026 DTaP/Tdap/Td vaccine (2 - Td or Tdap) DTaP/Tdap/Td vaccine (2 - Td or Tdap) [facility] Start: 09-22-2026 DTaP/Tdap/Td vaccine (2 - Td) DTaP/Tdap/Td vaccine (2 - Td) [facility] Work Phone: Start: 09-22-2026 DTaP/Tdap/Td Vaccine s (2 - Td or Tdap) DTaP/Tdap/Td Vaccines (2 - Td or Tdap) [facility] Start: 09-02-2025 Lipid panel Lipid Panel [facility] Start: 08-22-2024 DIABETES SCREEN [facility] Start: 12-04-2023 Lipid panel Lipids [facility] Start: 12-04-2023 Lipid screen Lipid screen [facility] Work Phone: Start: 09-13-2023 End: 09-13-2023 Patient encounter procedure 09/13/2023 11:30 AM EDT Office Visit [facility] [address] [place] [id number] Rebecca Buck MD [address] [place] [address] [facility] Start: 08-31-2023 End: 08-31-2023 Patient encounter procedure 08/31/2023 9:30 AM EDT Appointment [facility] [address] [place] [address] Rebecca Buck MD [address] [place] [address] [facility] [address] [facility] Start: 08-13-2023 End: 08-12-2024 Basic metabolic 1998 panel - Serum or Plasma Basic metabolic panel Lab Routine Calculus of ureter Expected: 08/13/2023 (Approximate), Expires: 08/12/2024 [facility] Comment on above: Expected: 08/13/2023 (Approximate), Expires: 08/12/2024 Start: 08-13-2023 End: 08-12-2024 CT Abdomen WO contrast CT abdomen pelvis wo IV contrast Imaging Routine Left flank pain Calculus of ureter Expected: 08/13/2023, Expires: 08/12/2024 [facility] Comment on above: Expected: 08/13/2023 , Expires: 08/12/2024 Start: 08-13-2023 End: 02-12-2024 PSA, Monitoring ([facility]) PSA, Monitoring ([facility]) Lab Routine Disease of prostate Expected: 08/13/2023 (Approximate), Expires: 02/12/2024 [facility] [employer] Work Phone: Comment on above: Expected: 08/13/2023 (Approximate), Expires: 02/12/2024 Start: 08-13-2023 End: 08-13-2023 Patient encounter procedure 08/13/2023 10:00 AM EDT Office Visit [facility] [address] [facility] [address] [place] [address] Rebecca Buck MD [address] [facility] [address] [place] [address] [facility] Start: 07-17-2023 Bacteria identified in Urine by Culture [facility] Start: 07-17-2023 [facility] Start: 07-16-2023 Measurement of substance [facility] Start: 05-07-2023 Medicare Advantage A nnual Wellness Visit Medicare Advantage Annual Wellness Visit [facility] Start: 03-02-2023 Creatinine measurement Creatinine Le carmela [facility] Start: 03-02-2023 Potassium measurement Potassium Levalysha l [facility] Start: 08-22-2022 Diabetes mellitus screening Diabetes Screening [facility] Start: 01-05-2022 Influenza vaccination S [facility] Start: 12-23-2021 EPV, Provider: Wing Ritter, Status: Pen, Time: 9:30 AM EPV, Provider: Wing Ritter, Status: Pen, Time: 9:30 AM [facility] Work Phone: Start: 12-05-2021 Influenza vaccination Flu vaccine (# 1) [facility] Start: 12-05-2021 Blood chemistry [facility] Work Phone: Start: 12-05-2021 Complete blood count [facility] Work Phone: Start: 12-05-2021 [facility] Work Phone: Start: 12-01-2021 [facility] Work Phone: Start: 08-05-2021 COVID-19 VACCINE (4 - Booster for Moderna series) COVID-19 VACCINE (4 - Booster for Moderna series) [facility] Start: 08-05-2021 COVID-19 Vaccine (4 - Booster for Pfizer series) COVID-19 Vaccine (4 - Booster for Pfizer series) [facility] Start: 06-01-2021 COVID-19 Vaccine (4 - Booster for Pfizer series) COVID-19 Vaccine (4 - Booster for Pfizer series) [facility] Start: 05-07-2021 ADVANCE DIRECTIVE DISCUSSION ADVANCE DIRECTIVE DISCUSSION [facility] Start: 08-11-2020 Screening for malign ant neoplasm of colon [facility] Start: 07-30-2020 Screening for malign ant neoplasm of colon [facility] Start: 01-20-2020 Echocardiography Echocardiogram [facility] [address] [place] Work Phone: Start: 01-06-2020 Influenza vaccination INFLUENZA (#1) [facility] Start: 12-04-2019 Annual Wellness Visi t (AWV) Annual Wellness Visit (AWV) [facility] Start: 12-04-2019 Creatinine monitoring [facility]: Start: 12-04-2019 Hepatitis C screen Hepatitis C avinashe n [facility] Work Phone: Comment on above: Postponed from 05/06 (Patient Refused) Start: 12-04-2019 Potassium monitoring Pot[facility]it [facility]ing [facility] Work [facility]: Start: 12-04-2019 Prostate specific an tigen measurement Prostate Specific Antigen (PSA) Screening or Monitoring [facility] Start: 12-04-2019 Shingles Vaccine (1 of 2) Day gles Vaccine (1 of 2) [facility] Work Phone: Comment on above: Postponed from 05/06 (Patient Refused) Start: 06-07-2019 Colon Cancer Screen FIT/FOBT [facility] Work Phone: Start: 08-14-2017 LIPID SCREEN LIPID SCREEN [facility] Start: 2017 ADVANCE DIRECTIVE DISCUSSION ADVANCE DIRECTIVE DISCUSSION [facility] Start: 2017 PNEUMOCOCCAL: 65+ (1 - PCV) PNEUMOCOCCAL: 65+ (1 - PCV) [facility] Start: 2017 PNEUMOVAX AGE 65 AND OVER WITH 5YR LOOKBACK (#1) PNEUMOVAX AGE 65 AND OVER WITH 5YR LOOKBACK (#1) [facility] Start: 04-14-2016 DIABETES SCREEN DIABETES SCREEN [facility] Start: 2012 RSV Immunization age d 60 or older (1 - 1-dose 60+ series) RSV Immunization aged 60 or older (1 - 1-dose 60+ series) [facility] Start: 2007 PROSTATE CANCER SCRE ENING DISCUSSION PROSTATE CANCER SCREENING DISCUSSION [facility] Start: 2002 Shingles vaccine (1 of 2) Day gles vaccine (1 of 2) [facility] Start: 2002 SHINGRIX VACCINE (1 of 2) DAY GRIX VACCINE (1 of 2) [facility] Start: 2002 Tuberculosis screening COLOREC MONIQUE CANCER SCREENING,SEE MODIFIER [facility] Start: 2002 Zoster Vaccines (1 of 2) Zoste r Vaccines (1 of 2) [facility] Start: 1997 COLOGUARD (FIT-DNA) COLOGUARD (FIT-D NA) [facility] Start: 1997 Colonoscopy COLONOSCOPY [facility] Start: 1997 COLORECTAL CANCER SCREENING COLORECTAL CANCER SCREENING [facility] Start: [address] COLONOGRAPHY [facility] Start: 1997 FECAL OCCULT BLOOD FECAL OCCULT BLOO D [facility] Start: 1997 Screening for malign ant neoplasm of colon [facility] Start: 1997 SIGMOIDOSCOPY SIGMOIDOSCOPY [facility] Start: 1987 Diabetes screen Diabetes screen [facility] Start: 1971 Urine microalbumin profile DTAP,TDAP,TD (1 - Tdap) [facility] Start: 1970 ANNUAL PCP TEAM PLANNING SUPERVISOR KEESHA DISEASE VISIT ANNUAL PCP TEAM CHRONIC DISEASE VISIT [facility] Start: 1970 BP CONTROLLED (<130/80) BP CONTROLLE D (<130/80) [facility] Start: 1970 Diabetes mellitus screening Diabetes Screening [facility] Start: 1970 HEPATITIS C SCREENING HEPATITIS C SC REENING [facility] Start: 1970 Hepatitis C screening [facility] Start: 1964 Adult depression screening assessment DEPRESSION SCREENING [facility] Start: 1964 Depression Screen Depression Screen [facility] Start: 1962 Diabetic foot examination Diabetes: Foot Exam [facility] Start: 1962 Glaucoma screening Diabetes: R etinopathy Screening [facility] Start: 1962 Preventive dental service Diabetes: Dental Exam [facility] Start: 1952 Echocardiography Echocardiogram [facility] Start: 1952 Hemoglobin A1c measurement Diabetes: Hemoglobin A1C [facility] Start: 1952 Lipid panel Lipid Panel [facility] Start: 1952 Screening for malign ant neoplasm of colon [facility] Bacteria identified in Urine by Culture Urine Culture [facility] Work Phone: End: 03-02-2022 CBC W Auto Differential panel - Blood CBC with Auto Differential Lab Routine One Time for 1 Occurrences starting 03/02/2022 until 03/02/2022 [facility] Work Phone: Comment on above: One Time for 1 Occur rences starting 03/02/2022 until 03/02/2022 End: 03-02-2022 Comprehensive metabolic 2000 panel - Serum or Plasma Comprehensive Metabolic Panel Lab STAT One Time for 1 Occurrences starting 03/02/2022 until 03/02/2022 [facility] Work Phone: Comment on above: One Time for 1 Occur rences starting 03/02/2022 until 03/02/2022 End: 09-06-2023 CT Abdomen WO contrast [facility] [employer] [facility] Work Phone: Comment on above: Once for 1 Occurrenc es starting 09/06/2023 until 09/06/2023 End: 12-22-2021 Culture, Blood 2 Culture, Blood 2 Microbiology STAT One Time for 1 Occurrences starting 12/22/2021 until 12/22/2021 [facility] Work Phone: Comment on above: One Time for 1 Occur rences starting 12/22/2021 until 12/22/2021 End: 12-22-2021 Microscopic examination of blood, culture Culture, Blood Microbiology STAT One Time for 1 Occurrences starting 12/22/2021 until 12/22/2021 [facility] Work Phone: Comment on above: One Time for 1 Occur rences starting 12/22/2021 until 12/22/2021 Microscopic examinat ion of blood, culture Culture, Blood Microbiology STAT 12/22/2021 12:22 AM EDT [facility] Work Phone: Oxygen therapy [[facility] Data Set] Initiate Oxygen Therapy Protocol Respiratory Care Routine As Needed until discontinued starting 10/21/2021 [facility] Comment on above: As Needed until disc ontinued starting 10/21/2021 Protime-INR Protime-INR Lab Routine Daily until discontinued starting 10/23/2021, 7 completed [facility] Work Phone: Comment on above: Daily until disconti nued starting 10/23/2021, 7 completed End: 03-02-2022 Protime-INR Protime-INR Lab Routine One Time for 1 Occurrences starting 03/02/2022 until 03/02/2022 [facility] Work Phone: Comment on above: One Time for 1 Occur rences starting 03/02/2022 until 03/02/2022 Spirometry panel Incentive stef metry Respiratory Care Routine Daily until discontinued starting 10/21/2021 [facility] Work Phone: Comment on above: Daily until disconti nued starting 10/21/2021 End: 10-21-2021 Wound ostomy eval Wound ostomy eval Wound Ostomy Routine One Time for 1 Occurrences starting 10/21/2021 until 10/21/2021 [facility] Work Phone: Comment on above: One Time for 1 Occur rences starting 10/21/2021 until 10/21/2021 [facility] NEGATED: Highlighted row has been ruled out! Planned Goals not documented [facility] Work Phone: Immunizations Immunization Date Immunization [...] Phone: Payers Date Payer Category Payer Unknown [id number] 12-03-2023 Self-pay 01-05-2022 Medicaid 01-05-2022 Medicare 01-05-2022 Medicare [id number] 10-05-2021 Medicaid [id number] 06-07-2021 Medicare UHC MEDICARE UHC DUAL COMPLETE HMO SNP [id number] 06/07/2021-Present [phone] [address] [place] [address] Medicare [id number]. 2.7.3.984394.315 06-07-2021 Medicare UHC MEDICARE [employer] DUAL COMPLETE [id number] 06/07/2021-Present [phone] [address] [place] [address] [id number]. 2.7.3.022815.315 11-05-2019 Medicare UHC AARP MEDICAR E [facility] AARP MEDICARE HMO [id number] 11/05/2019-Present HMO [id number] [id number]. 2.7.3.509962.315 07-06-2015 Medicare UHC MEDICARE UHC MEDICARE COMPLETE xxxxxxxxx 2015-Present xxxxxxxxx 1.2.840.990212.1.13.239. 2.7.3.055473.315 1950 Unknown [id number] 2.16840.1.185814.3.579. 2.8 1952 Unknown [id number] 2.16.840.1.081495.3.579. 2.668 1950 Unknown [id number] 2.16.840.1.318091.3.579. 2.8 1952 Unknown [id number] 2.16.840.1.234038.3.579. 2.668 1952 Unknown [id number] 2.16.840.1.366444.3.579. 2.8 1952 Unknown [id number] .16.840.1.281689.3.579. 2.668 1950 Unknown [id number] ..840.1.825235.3.579. 2.668 Private Health Insurance Unknown Unknown [id number] 2.16.840.1.965814.3.579. 2.462 Unknown [id number] 2.840.1.174607.3.579. 2.462 Unknown [id number] 2.840.1.986992.3.579. 2.462 Unknown [id number] 2.840.1.264129.3.579. 2.462 Unknown [id number] 2.840.1.392577.3.579. 2.462 Unknown [id number] 2.840.1.183962.3.579. 2.462 Unknown [id number] 2.840.1.996243.3.579. 2.462 Unknown [id number] 2.840.1.424564.3.579. 2.462 Unknown [id number] 2.840.1.777244.3.579. 2.462 Unknown [id number] 2.840.1.963255.3.579. 2.462 Unknown [id number] 2.840.1.424390.3.579. 2.462 Unknown [id number] .840.1.352064.3.579. 2.462 Unknown [id number] 2.840.1.237724.3.579. 2.462 Unknown [id number] 2.840.1.139228.3.579. 2.462 Unknown [id number] 2.16840.1.817743.3.579. 2.462 Unknown [id number] 2.16.840.1.044176.3.579. 2.462 Unknown [id number] 2.16.840.1.218036.3.579. 2.462 Unknown [id number] 2.16.840.1.000669.3.579. 2.462 Unknown [id number] 2.16.840.1.915946.3.579. 2.462 Unknown [id number] 2.16.840.1.231181.3.579. 2.462 Unknown [id number] 2.16.840.1.380051.3.579. 2.462 Unknown [id number] 2.16.840.1.576521.3.579. 2.462 Unknown [id number] 2.840.1.114838.3.579. 2.462 Unknown [id number] 2.16840.1.095388.3.579. 2.462 Unknown [id number] 2.840.1.371729.3.579. 2.462 Unknown [id number] 2.840.1.840467.3.579. 2.462 Unknown [id number] 2.840.1.775173.3.579. 2.462 Unknown [id number] 2.840.1.435947.3.579. 2.462 Unknown [id number] 2.16840.1.425646.3.579. 2.462 Unknown [id number] 2.840.1.247911.3.579. 2.462 Unknown [id number] 2.16840.1.493535.3.579. 2.462 Unknown [id number] 2.16.840.1.805243.3.579. 2.462 Unknown [id number] 2.16840.1.898440.3.579. 2.462 Unknown [id number] 2.16.840.1.051361.3.579. 2.462 Unknown [id number] 2.16840.1.589115.3.579. 2.462 Unknown [id number] 2.16.840.1.163515.3.579. 2.462 Unknown [id number] 2.16.840.1.442855.3.579. 2.462 Unknown [id number] 2.16.840.1.991602.3.579. 2.462 Unknown [id number] 2.16.840.1.387974.3.579. 2.462 Unknown [id number] 2.16.840.1.358052.3.579. 2.462 Unknown [id number] 2.16.840.1.257837.3.579. 2.462 Unknown [id number] 2.16.840.1.280163.3.579. 2.462 Unknown [id number] 2.16.840.1.524212.3.579. 2.462 Unknown [id number] 2.16.840.1.276047.3.579. 2.462 Unknown [id number] 2.16.840.1.897860.3.579. 2.462 Unknown [id number] 2.16.840.1.641906.3.579. 2.462 Unknown [id number] 2.16.840.1.482446.3.579. 2.462 Unknown [id number] 2.16.840.1.622112.3.579. 2.462 Unknown 78710291 2.16.840.1.456536.3.579. 2.462 Unknown 93858601 2.16.840.1.588317.3.579. 2.462 Unknown 84728733 2.16.840.1.404062.3.579. 2.462 Unknown [id number] 2.16.840.1.146307.3.579. 2.462 Unknown [id number] 2.16.840.1.404506.3.579. 2.462 Unknown [id number] 2.16.840.1.780040.3.579. 2.462 Unknown [id number] 2.16.840.1.293955.3.579. 2.462 Unknown [id number] 2.16840.1.092498.3.579. 2.462 Unknown [id number] 2.16.840.1.150688.3.579. 2.462 Unknown [id number] 2.840.1.574429.3.579. 2.462 Unknown [id number] 2.840.1.105874.3.579. 2.462 Unknown [id number] 2.840.1.269957.3.579. 2.462 Unknown [id number] 2.840.1.559419.3.579. 2.462 Unknown [id number] 2.840.1.750079.3.579. 2.462 Unknown [id number] 2.840.1.269795.3.579. 2.462 Unknown [id number] 2.840.1.221336.3.579. 2.462 Unknown [id number] 2.840.1.802853.3.579. 2.462 Unknown [id number] 2.840.1.272178.3.579. 2.462 Unknown [id number] 2.840.1.007943.3.579. 2.462 Unknown [id number] 2.840.1.099326.3.579. 2.462 Unknown [id number] 2.840.1.272057.3.579. 2.462 Unknown [id number] 2.840.1.790940.3.579. 2.462 Unknown [id number] 2.840.1.979353.3.579. 2.462 Unknown 40161132 2.840.1.773155.3.579. 2.462 Unknown 56155521 2.16.840.1.003899.3.579. 2.462 Unknown 11029401 2.16840.1.938727.3.579. 2.462 Unknown 96497563 2.16.840.1.326004.3.579. 2.462 Unknown 91054667 2.16.840.1.338811.3.579. 2.462 Unknown 94194514 2.16840.1.369626.3.579. 2.462 Unknown 35145761 2.840.1.709840.3.579. 2.462 Unknown 32422363 2.840.1.226242.3.579. 2.462 Unknown 77226811 2.840.1.319875.3.579. 2.462 Unknown 13191841 2.840.1.524775.3.579. 2.462 Unknown 07433120 2.840.1.829836.3.579. 2.462 Unknown 95239050 2.840.1.608594.3.579. 2.462 Unknown 92620945 2.840.1.150088.3.579. 2.462 Unknown 01433076 2.840.1.666156.3.579. 2.462 Unknown 46974504 2.840.1.771503.3.579. 2.462 Unknown 47400660 2.840.1.238446.3.579. 2.462 Unknown 85202772 2.840.1.563113.3.579. 2.462 Unknown 35411608 2.16840.1.257509.3.579. 2.462 Unknown 64307322 2.16840.1.239065.3.579. 2.462 Unknown 65131254 2.840.1.902234.3.579. 2.462 Unknown 81574284 2.16.840.1.980110.3.579. 2.462 Unknown 33733637 2.16.840.1.649552.3.579. 2.462 Unknown 99172782 2.16.840.1.296988.3.579. 2.462 Unknown 33645724 2.16.840.1.738842.3.579. 2.462 Unknown 35396563 2.16.840.1.055890.3.579. 2.462 Unknown 05471523 2.16.840.1.736960.3.579. 2.462 Unknown 67624159 2.16.840.1.024134.3.579. 2.462 Unknown 49208997 2.840.1.391266.3.579. 2.462 Unknown 09522581 2.840.1.318402.3.579. 2.462 Unknown 05062810 2.16840.1.364159.3.579. 2.462 Unknown 94439967 2.840.1.897314.3.579. 2.462 Unknown 36880441 2..840.1.064262.3.579. 2.462 Unknown 18095505 2.840.1.552560.3.579. 2.462 Unknown 74234604 2.16840.1.093185.3.579. 2.462 Unknown [id number] 2.16840.1.450458.3.579. 2.462 Unknown [id number] 2.16.840.1.214718.3.579. 2.462 Unknown [id number] 2.16.840.1.859858.3.579. 2.462 Unknown 34244717 2.16.840.1.568420.3.579. 2.462 Unknown [id number] 2.16840.1.470360.3.579. 2.462 Unknown [id number] 2.16.840.1.910582.3.579. 2.462 Social History Date Type Detail Facility Start: 05-23-2018 End: 05-19-2019 Tobacco smoking status NHIS Former smoker [employer] Work Phone: History of tobacco use Cigar Smoker [employer] Work Phone: Start: 05-19-2019 End: 08-13-2023 Cigarettes smoked current (pack per day) - Reported [employer] Work Phone: Start: 05-19-2019 End: 08-13-2023 Alcohol intake Current non-drinker of alcohol (finding) [employer] Work Phone: Start: 12-03-2018 History SDOH Physica l Activity DPW 7 [employer] Phone: Start: 12-03-2018 History SDOH Physica l Activity MPS 9 [employer] Work Phone: Start: 12-03-2018 End: 10-31-2021 History SDOH Stress 1 [employer] Phone: Start: 12-03-2018 History SDOH Financial 5 [employer] Work Phone: Start: 12-03-2018 History SDOH Transpo rt Med 2 [employer] Phone: Start: 1950 Sex Assigned At Not on file [facility] Work Phone: Start: 08-13-2012 End: 11-13-2019 Tobacco smoking status WIIS Never smoker [facility] Start: 05-23-2018 End: 11-13-2019 Tobacco use and exposure Never used [facility] Start: 11-13-2019 History SDOH Alcohol Std Drinks 98 [facility] Start: 10-11-2021 End: 02-15-2022 Exposure to SARS-CoV-2 (event) Not sure [facility] Start: 1950 Sex Assigned At Male W [facility] History of tobacco use Current smoker [facility] Work Phone: History of tobacco use Cigarette Smoker [facility] Work Phone: Start: 10-31-2021 End: 08-13-2023 Tobacco use panel [facility] Work Phone: Start: 07-11-2024 End: 08-21-2024 Sex Male (finding) [facility] NEGATED: Highlighted row - - MARÍA [facility] Work Phone: Medical Equipment Procedure Code Equipment Code Equipment Origin al Text Equipment Identifier Dates Kit Bactiseal Woodard maria guadalupe Silicone Barium Catheter Shunt Sterile - [id number] Start: 06-08-2021 Catheter Bactise al 14cm External Drainage Csf Sterile Latex Free - [id number] Start: 08-05-2021 Valve Certas Shannon nt Inline - [id number] Start: 06-08-2021 Valve Certas Shannon nt Inline - [id number] Start: 08-05-2021 Valve Certas Shannon nt Inline - [id number] Start: 08-09-2021 Goals Date Patient Goal [...] status health issues are not documented Disease [facility] Work Phone: Mental Status Date Assessment Result Facility NEGATED: Highlighted row Cognitive function [Interpretation] Cognitive status health issues are not documented Disease [facility] Work Phone: Clinical Notes 05-31-2021 [...] Hydrocephalus, adult (CMS/HCC) (HCC) Kidney stone Neuropathy HYDRO ELECTRIC STATION OPERATOR (ventriculoperitoneal) shunt status Past Surgical History: Procedure [...] 09/13/23 12:05 PM documented in this encounter [facility] 08-31-2023 Note S: Shanthi from [facility] spoke with [facility] nurse regarding voiding trial procedure. B: [...] Protocols used: Information Only Call - No [id number]-GAFSY-QI [facility] 08-31-2023 Telephone encounter Note S: Shanthi from [facility] spoke with [facility] nurse regarding voiding trial procedure. B: Onset of symptoms/concern today. A: [facility] is calling to make sure that the patient doesn't need to stand for the procedure as the patient can't. Patient using a boaz lift and would need to come by cot if so. Shanthi advised that the patient would need to come back cot if unable to stand to move from chair to exam table for procedure. R: [facility] will attempt to arrange for transportation for September 03 but might need to reschedule appointment if unable to obtain transportation. Reason for Disposition [1] Caller requesting NON-URGENT health information AND [2] PCP's office is the best resource Protocols used: Information Only Call - No [id number]-FA [facility] 08-31-2023 Miscellaneous Notes S: Shanthi from [facility] spoke with [facility] nurse regarding voiding trial procedure. B: Onset of symptoms/concern today. A: [facility] is calling to make sure that the patient doesn't need to stand for the procedure as the patient can't. Patient using a boaz lift and would need to come by cot if so. Shanthi advised that the patient would need to come back cot if unable to stand to move from chair to exam table for procedure. R: [facility] will attempt to arrange for transportation for September 03 but might need to reschedule appointment if unable to obtain transportation. Reason for Disposition [1] Caller requesting NON-URGENT health information AND [2] PCP's office is the best resource Protocols used: Information Only Call - No [id number] documented in this encounter [facility] 08-29-2023 Telephone encounter Note Lm on daughters vm to advise them to call the number for the solar energy installation manager to get clarification, and to call back with further questions [facility] 08-29-2023 Miscellaneous Notes Lm on daughters vm to advise them to call the number for the solar energy installation manager to get clarification, and to call back with further questions Yes, they will need to call the number given to them. Please advise Name of caller: Shanthi Contact phone number: [phone] Relationship to Patient: patient Provider: MD Quinn Practice: [facility] [place] [facility] Chief Complaint/Reason for [...] to reach out to call Maury Cedeño Web Content Specialist at [facility] [phone] to get clarifications. TEA did reach back out to [facility] and advised and provider Maury's #. Please advise Best time of day caller can be reached: Any Patient advised that office/PCP has 24-48 business hours to return their call: N/A documented in this encounter [facility] 08-27-2023 Telephone encounter Note Yes, they will need to call the number given to them. [facility] [employer] 08-27-2023 Telephone encounter Note Please advise [facility] [employer] 08-21-2023 Telephone encounter Note Name of caller: Shanthi Contact phone number: [phone] Relationship to Patient: patient Provider: MD Quinn Practice: [facility] [place] U[facility] Chief Complaint/Reason for [...] to reach out to call Maury Cedeño Web Content Specialist at [facility] [phone] to get clarifications. CAC did reach back out to [facility] and advised and provider Maury's #. Please advise Best time of day caller can be reached: Any Patient advised that office/PCP has 24-48 business hours to return their call: N/A [facility] [employer] 08-13-2023 History of Present illness Narrative Images [...] Hydrocephalus, adult (CMS/HCC) (HCC) Kidney stone Neuropathy HYDRO ELECTRIC STATION OPERATOR (ventriculoperitoneal) shunt status Past Surgical History: Past [...] 08/13/23 10:45 AM documented in this encounter [facility] 06-25-2023 Telephone encounter Note [facility]t scheduled 07/10/23 [place] has to be made further out, pt being transported by cot. Changed appt to 08/13/23 per [facility] only avail time for transport, first avail with DR Buck at 10:00 AM. [facility] 06-25-2023 Miscellaneous Notes [facility] stating appt scheduled 07/10/23 [place] has to be made further out, pt being transported by cot. Changed appt to 08/13/23 per [facility] only avail time for transport, first avail with DR Buck at 10:00 AM. documented in this encounter [facility] 12-22-2021 Hospital Discharge instructions SANIA Lou - 12/22/2021 2:32 AM EDT Please take medication as prescribed Please follow up with your Physicians as instructed in this discharge paperwork Thank you for choosing [facility] I appreciate your patience Please return to the emergency department if your symptoms worsen, or new symptoms develop as discussed documented in this encounter [facility] Work Phone: 10-29-2021 Note Hospitalist Discharg e [...] abnormality and previous indwelling tubing history of HYDRO ELECTRIC STATION OPERATOR shunt ? #?Bilateral lower extremity wounds-wound care [...] Patient will be transferred to the senior living and his Coumadin was continued, dosing instructions were given. Wound care was given for his lower extremity wounds. Consults: neurology, vascular surgery, gastroenterology Discharge Instructions: Diet: No diet orders on file Activity: as tolerated Disposition: Patient discharged in stable condition to senior living . Greater than 30 minutes spent discharging [...] Your Medications These medications were sent to [facility] [address] [place] [address] - [phone] - [phone] [place] [address] ? levETIRAcetam 750 MG tablet ? warfarin 6 MG tablet Recommended Follow-up: No follow-up provider specified. Complexity of Follow up: [] Moderate Complexity: follow up within 7-14 calendar days (75244) [x] Severe Complexity: follow up within 7 calendar days (81559) Follow up Testing, Pending results or Referrals [...] Increased fatigue or (more content not included)... [facility] 10-29-2021 Hospital Discharge instructions Fabi Subramanian [...] Information Primary Emergency Contact: Triny Damon Address: [address] [place] [address] [address] [place], [place] [address] [place] [address] Relation: Brother/Sister Secondary Emergency Contact: Melissa Sifuentes Mobile Relation: Child Preferred language: Citizen Of [place] Past Surgical History: Past Surgical History: Procedure Laterality Date BRAIN SURGERY CHOLECYSTECTOMY COLONOSCOPY HERNIA REPAIR Immunization History: Immunization History Administered Date(s) Administered Influenza Virus Vaccine 02/08/2015 Influenza, High Dose (Fluzone 65 yrs and older) 01/25/2018, 03/04/2019 Influenza, Quadv, IM, (6 mo and older Fluzone, Flulaval, Fluarix and 3 yrs and older Afluria) 02/24/2016, 02/14/2017 Pneumococcal Conjugate 13-valent ([id number]) 09/22/2016 Pneumococcal Conjugate Vaccine 02/04/2013 Pneumococcal Polysaccharide ([id number]) 12/03/2018 Tdap (Boostrix, Adacel) 09/22/2016 Active Problems: Patient Active Problem List Diagnosis Code Flank pain, acute R10.9 Night muscle spasms M62.838 Chronic fatigue R53.82 Hydrocephalus (HCC) G91.9 Neuropathy G62.9 Erectile dysfunction N52.9 Fluid retention in tissues R60.9 Hyperlipidemia E78.5 Morbidly obese (HCC) E66.01 Leg wound, left S81.802A DVT, lower extremity, recurrent, unspecified laterality (HCC) I82.409 Moderate malnutrition (HCC) E44.0 History of seizures Z87.898 Isolation/Infection: Isolation [...] Dependent Dressing Dependent Toileting Dependent Feeding Dependent Radiologist Physician Dependent Med Delivery whole in [facility] Wound Care Documentation and Therapy: Wound 10/21/21 [...] Q4H prn SOB Oxygen Therapy: {Therapy; copd oxygen:88718} Ventilator: { CC Vent List:[id number]} Rehab Therapies: {THERAPEUTIC INTERVENTION:2970644339} Weight Bearing Status/Restrictions: Weight Bearing - Patient was bedbound in hospital Other Medical Equipment (for information only, NOT a DME order): wheelchair, hospital bed, and Boaz Other Treatments: Patient's personal belongings (please select all that are sent with patient): {[facility] DME Belongings:[id number]} RN SIGNATURE: CASE MANAGEMENT/SOCIAL WORK SECTION Inpatient Status Date: Readmission Risk Assessment Score: Readmission Risk Risk of Unplanned Readmission: 11 Discharging to Facility/ Agency Name: Address: Phone: Fax: Dialysis Facility (if applicable) Name: Address: Dialysis Schedule: Phone: Fax: Hand Shaper/Diagnostic Technologist signature: {Esignature:[id number]} PHYSICIAN SECTION Prognosis: Fair Condition at Discharge: [...] the diagnosis listed and that he requires Alf Facility for greater than 30 days. Update Admission H&P: No change in H&P PHYSICIAN SIGNATURE: documented in this encounter [facility] Work Phone: 10-29-2021 History of Present illness Narrative [facility] Anticoagulation Management Service ([facility]) Inpatient Warfarin Consult HPI: Andrew Sifuentes is a 71 y.o. 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 Past Medical History: Diagnosis Date ED (erectile dysfunction) Hemorrhoids Hydrocephalus, adult (HCC) Kidney stone Neuropathy HYDRO ELECTRIC STATION OPERATOR (ventriculoperitoneal) shunt status Patient is newly referred to the [facility] for warfarin management. Pt was referred [...] daily. 4. Will provide warfarin education including [facility] warfarin booklet, if appropriate. Vimal Oropeza [facility], PharmD IRVIN Consult Service is available daily [phone]. Please search for covering pharmacist name via [email or web address] or Groups --> Pharmacy --> Anti-Coagulation Consult Pharmacist (on 3rd page). If no response via PerfectServe, please page [phone]. Patient seen and chart reviewed. Afebrile. Adequate oxygenation on room air. Baseline mentation. Exam stable X 5 systems. Hgb 11.0 WBC 10.0 K Platelets 344 K Creatinine 0.71 GFR > 90 cc/min. NSE 20.8 with hemolysis. PT 30.8 INR 3.1 Conversion to Warfarin has been completed. APS w/u pending. Discussed with patient's direct support staff. Will continue to monitor. Total visit time > 35 minutes. Neurology Attending Progress Note SUBJECTIVE: No issues overnight. Care discussed with nursing staff/patient's medical team MRI brain reported nothing acute. Assessment and Plan: 71 yr M with H obstructive hydrocephalus s/p HYDRO ELECTRIC STATION OPERATOR shunt in 1987, needing multiple revisions and [...] normal limits and both old and new HYDRO ELECTRIC STATION OPERATOR shunt tubing noted. At present patient is awake, follows commands, was able to tell his name, and that he was in hospital but not oriented to time. Per documentation patient had NCSE in May 2021, was on Vimpat, but it was discontinued as there was no evidence of recurrent seizures in july 2021 by Neurology at [facility], per daughter patient was on Dilantin for 31 yrs. Per daughter patient had seizures in the past and also felt he had staring episodes 10/26/2021 morning. Per daughter patient has been essentially bed bound in [place] since May 2021 but prior to that was independent Impressions: H/O hydrocephalus H/O seizure, H/O stroke Acute DVT H/O PE Plan: -MRI brain w/o contrast nothing acute -CT head done during this admission reported no hydrocephalus, ventricles within normal limits and both old and new HYDRO ELECTRIC STATION OPERATOR shunt tubing noted -EEG mild to moderate slow, no seizures reported -Labs reviewed -Hydrocephalus management per Neurosurgery. At present patient does not have hydrocephalus on CT head done this admission. No Neurosurgery services available as inpatient in [facility]. Patient can follow up with Neurosurgery as outpatient and if ends up needing inpatient neurosurgery requirement then may need to be transferred to [facility]. -No clear clinical signs of ventriculitis. Defer evaluation to primary medical team/ID as deemed necessary. -Discussed with daughter in detail on . She was concerned that patient has had h/o seizures, and he has been taken off seizure medication, per note documentation patient had NCSE in May 2021 when he was admitted to [facility]. Per daughter she would want patient [...] is no in house Neurology coverage at [facility] over the weekend, primary hospitalist team to contact administration clerk Neurology at [facility] for any weekend neurological issues related to the patient and if need to discuss any neurological test results/findings. Other deal in house Neurology coverage will be available from Sunday at [facility] and please call administration clerk Neurology back on Sunday if need further assistance. This note has been generated using Paper Hunteration software. It may contain incorrect words, punctuation's and spellings that were not noted in the review of the note prior to signing. This note has been generated using Konoz dictation software. It may contain incorrect words, [...] eGFR >90.0 >60 mL/min EGFR IF NonAfrican Montenegrin >90.0 >60 mL/min Calcium 9.1 8.4 - [...] 26 AST 24 BILITOT 0.4 LABALBU 3.7 @BRIEFLAB([facility]) ABGs: )No results for input(s): PH, [...] Radiology ACCESSION EXAM DATE/TIME PROCEDURE ORDERING PROVIDER [id number] 10/21/2021 15:30 EDT CR Calcaneus 2+ Views [id number] -SHRUTHI MALIK Left CPT code 63765 Reason For Exam (CR Calcaneus 2+ Views [...] on --- Final --- Dictating Physician: MD ESTEE, CARLA Mcahuca Signed Date and Time: 10/21/2021 4:31 pm Signed by: MD ESTEE, CARLA Machuca Transcribed Date and Time: 10/21/2021 4:33 CT HEAD WO CONTRAST Result Date: 10/26/2021 Patient Name: ANDREW SIFUENTES Computed Tomography ACCESSION EXAM DATE/TIME PROCEDURE ORDERING PROVIDER [id number] 10/26/2021 11:[address] Head or Brain w/o EDWIN, JUNIE, SARINA Contrast CPT code 42602 Reason For Exam (CT Head or Brain w/o Contrast) hydrocephalus. thank you Report CLINICAL INFORMATION: Hydrocephalus. Shunt. 3 mm axial cuts through the head are obtained without IV contrast. The examination is compared to a previous study dated 06/29/2014. FINDINGS: Old HYDRO ELECTRIC STATION OPERATOR shunt tubing is noted bilaterally. The new [...] are clear. IMPRESSION: 1. Old and new HYDRO ELECTRIC STATION OPERATOR shunt tubing. 2. No hydrocephalus. 3. Atrophy [...] Imaging ACCESSION EXAM DATE/TIME PROCEDURE ORDERING PROVIDER [id number] 10/23/2021 11:08 EDT MRI Abdomen w/o Contrast WING SRIVASTAVA CPT code 73982 Reason For Exam (MRI Abdomen w/o Contrast) [...] Medicine ACCESSION EXAM DATE/TIME PROCEDURE ORDERING PROVIDER [id number] 10/21/2021 07:55 EDT NM Pulmonary Perfusion [id number] MAY BOGGS w/ Vent Aerosol CPT code 44481 A9567 Reason For Exam (NM Pulmonary Perfusion [...] Brachial Indices Extremity Bilateral Result Date: 10/22/2021 [facility] --- Ankle Brachial Index Report Patient Gurpreet : 1950 Study 10/21/2021 Name: Andrew Gonzalez (71yrs) Date: Age: 71 Account: [id number] Gender: M Loc: 444W BP: Ordering Physician: Shruthi Malik Speech Coach: Rody Cross RDMS, RVT Interpreting Physician: Carina Call --- Location: [facility] --- Indications: Foot wounds. Originally ordered as a full PVR. Ordering BLANKING MACHINE OPERATOR had to modify the order to ABIs [...] supine position. Images were obtained using a PointCares vascular ultrasound machine. --- Arterial pressure indices: [...] EXTREMITY BILATERAL VENOUS DUPLEX Result Date: 10/21/2021 [facility] --- Lower Extremity Venous Duplex Report Patient DO GurpreetB: 1950 Study 10/21/2021 Name: Andrew Gonzalez (71yrs) Date: Age: 71 Account: [id number] Gender: M Loc: 444 BP: Ordering Physician: May Cash Speech Coach: Rody Cross RDMS, RVT Interpreting Physician: Carina Call --- Location: [facility] --- Indications: Bilateral lower leg edema. --- [...] supine position. Images were obtained using a PointCares vascular ultrasound machine. --- Venous flow and [...] Radiology ACCESSION EXAM DATE/TIME PROCEDURE ORDERING PROVIDER [id number] 10/21/2021 08:16 EDT CR Chest 1 View Frontal [id number] MAY BOGGS CPT code 74474 Reason For Exam (CR Chest 1 View [...] Tomography ACCESSION EXAM DATE/TIME PROCEDURE ORDERING PROVIDER [id number] 10/22/2021 13:[address] Abdomen/Pelvis (No SRIVASTAVA, WING PO, No IV) CPT code 51138 Reason For Exam (CT Abdomen/Pelvis (No PO, [...] Imaging ACCESSION EXAM DATE/TIME PROCEDURE ORDERING PROVIDER [id number] 10/27/2021 13:14 EDT MRI Brain w/o Contrast UNASSIGNED, UNASSIGNED CPT code 89529 Reason For Exam (MRI Brain w/o Contrast) stroke Patient has HYDRO ELECTRIC STATION OPERATOR shunt in place, please follow Radiology protocol [...] included. Hospitalist Progress Note 10/28/2021 11:37 AM [phone]: Please page nm @ [phone] for patient care issues. [phone]: Please page banking paralegal for any issues@ night Subjective: Admit Date: [...] LABALBU 3.7 PROT 7.1 PT/INR: Recent Labs 10/26/21318 10/27/21 0537 10/28/21 0418 PROTIME 19.7* 21.9* 30.8* INR 1.9* 2.1* [...] abnormality and previous indwelling tubing history of HYDRO ELECTRIC STATION OPERATOR shunt # Bilateral lower extremity wounds-wound care [...] Services This report was created using the [employer] Speaking voice-activated system. Despite prompt dictation and careful editorial review, there may be subtle contextual errors in this report, due to misrecognition of the spoken word. Speech Language Pathology Facility/Department: [facility] MED SURG Dysphagia Treatment Note NAME: [...] and gloves were worn throughout this session. [facility] Anticoagulation Management [facility] ([facility]) Inpatient Warfarin Consult HPI: Andrew Sifuentes is a 71 y.o. 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 Past Medical History: Diagnosis Date ED (erectile dysfunction) Hemorrhoids Hydrocephalus, adult (HCC) Kidney stone Neuropathy HYDRO ELECTRIC STATION OPERATOR (ventriculoperitoneal) shunt status Patient is newly referred to the [facility] for warfarin management. Pt was referred by Ellen Scherer APRN-VICTORIANO. Pt is on warfarin for DVT and has a goal INR 2.0 - 3.0 . Duration of therapy= indefinite. Reason for warfarin instead of DOAC: DOAC failure PCP: MONIKA STALEY MD S/sx of bleeding= none noted Interacting medications= none Labs: Recent Labs 10/28/218 HGB 11.0* HCT 33.4* PLT 344 Recent [...] PharmD IRVIN Consult Service is available daily [phone]. Please search for covering pharmacist name via [email or web address] or Groups --> Pharmacy --> Anti-Coagulation Consult Pharmacist (on 3rd page). If no response via [email or web address], please page [phone]. Follow up b/l foot wounds. No new [...] yr M with PMH obstructive hydrocephalus s/p HYDRO ELECTRIC STATION OPERATOR shunt in 1987, needing multiple revisions and [...] normal limits and both old and new HYDRO ELECTRIC STATION OPERATOR shunt tubing noted. At present patient is awake, follows commands, was able to tell his name, and that he was in hospital but not oriented to time. Per documentation patient had NCSE in May 2021, was on Vimpat, but it was discontinued as there was no evidence of recurrent seizures in july 2021 by Neurology at [facility], per daughter patient was on Dilantin for 31 yrs. Per daughter patient had seizures in the past and also felt he had staring episodes 10/26/2021 morning. Per daughter patient has been essentially bed bound in [place] since May 2021 but prior to that was independent Impressions: H/O hydrocephalus H/O seizure, H/O stroke Acute DVT H/O PE Plan: -MRI brain w/o contrast. Per daughter she would like MRI brain done to evaluate for strokes -CT head done during this admission today reported no hydrocephalus, ventricles within normal limits and both old and new HYDRO ELECTRIC STATION OPERATOR shunt tubing noted -EEG mild to moderate slow, no seizures reported -Labs reviewed -Hydrocephalus management per Neurosurgery. At present patient does not have hydrocephalus on CT head done this admission. No Neurosurgery services available as inpatient in [facility]. Patient can follow up with Neurosurgery as outpatient and if ends up needing inpatient neurosurgery requirement then may need to be transferred to [facility]. -No clear clinical signs of ventriculitis. Defer evaluation to primary medical team/ID as deemed necessary. -Discussed with daughter in detail on . She was concerned that patient has had h/o seizures, and he has been taken off seizure medication, per note documentation patient had NCSE in May 2021 when he was admitted to [facility]. Per daughter she would want patient [...] interim. This note has been generated using Paper Hunteration software. It may contain incorrect words, punctuation's and spellings that were not noted in the review of the note prior to signing. This note has been generated using Konoz dictation software. It may contain incorrect words, [...] LABALBU, AMYLASE, LIPASE in the last 72 hours.@BRIEFLAB([facility]) ABGs: )No results for input(s): PH, [...] Radiology ACCESSION EXAM DATE/TIME PROCEDURE ORDERING PROVIDER [id number] 10/21/2021 15:30 EDT CR Calcaneus 2+ Views [id number] -SHRUTHI MALIK Left CPT code 11139 Reason For Exam (CR Calcaneus 2+ Views [...] Tomography ACCESSION EXAM DATE/TIME PROCEDURE ORDERING PROVIDER [id number] 10/26/2021 11:[address] Head or Brain w/o JUNIE PINEDA ALLISON Contrast CPT code 63825 Reason For Exam (CT Head or Brain w/o Contrast) hydrocephalus. thank you Report CLINICAL INFORMATION: Hydrocephalus. Shunt. 3 mm axial cuts through the head are obtained without IV contrast. The examination is compared to a previous study dated 06/29/2014. FINDINGS: Old HYDRO ELECTRIC STATION OPERATOR shunt tubing is noted bilaterally. The new [...] are clear. IMPRESSION: 1. Old and new HYDRO ELECTRIC STATION OPERATOR shunt tubing. 2. No hydrocephalus. 3. Atrophy [...] Imaging ACCESSION EXAM DATE/TIME PROCEDURE ORDERING PROVIDER [id number] 10/23/2021 11:08 EDT MRI Abdomen w/o Contrast WING SRIVASTAVA CPT code 75862 Reason For Exam (MRI Abdomen w/o Contrast) [...] Medicine ACCESSION EXAM DATE/TIME PROCEDURE ORDERING PROVIDER [id number] 10/21/2021 07:55 EDT NM Pulmonary Perfusion [id number] MAY BOGGS w/ Vent Aerosol CPT code 94130 A9567 Reason For Exam (NM Pulmonary Perfusion [...] Brachial Indices Extremity Bilateral Result Date: 10/22/2021 [facility] --- Ankle Brachial Index Report Patient DO GurpreetB: 1950 Study 10/21/2021 Name: Andrew Gonzalez (71yrs) Date: Age: 71 Account: [id number] Gender: M Loc: 444W BP: Ordering Physician: Shruthi Malik Speech Coach: Rody Cross RDMS, RVT Interpreting Physician: Carina Call --- Location: [facility] --- Indications: Foot wounds. Originally ordered as a full PVR. Ordering BLANKING MACHINE OPERATOR had to modify the order to ABIs [...] supine position. Images were obtained using a PointCares vascular ultrasound machine. --- Arterial pressure indices: [...] EXTREMITY BILATERAL VENOUS DUPLEX Result Date: 10/21/2021 [facility] --- Lower Extremity Venous Duplex Report Patient RADHA Sifuentes: 1950 Study 10/21/2021 Name: Andrew Gonzalez (71yrs) Date: Age: 71 Account: [id number] Gender: M Loc: 444 BP: Ordering Physician: May Cash Speech Coach: Rody Cross RDMS, RVT Interpreting Physician: Carina Call --- Location: [facility] --- Indications: Bilateral lower leg edema. --- [...] supine position. Images were obtained using a PointCares vascular ultrasound machine. --- Venous flow and [...] Radiology ACCESSION EXAM DATE/TIME PROCEDURE ORDERING PROVIDER [id number] 10/21/2021 08:16 EDT CR Chest 1 View Frontal [id number] -MAY CASH CPT code 49736 Reason For Exam (CR Chest 1 View [...] Tomography ACCESSION EXAM DATE/TIME PROCEDURE ORDERING PROVIDER [id number] 10/22/2021 13:[address] Abdomen/Pelvis (No SRIVASTAVAWING KESSLER PO, No IV) CPT code 66853 Reason For Exam (CT Abdomen/Pelvis (No PO, [...] 12:48 PM Consults Speech Language Pathology Facility/Department: [facility] MED SURG Dysphagia Treatment Note NAME: [...] reactivity and state change, indicative of a [id number] diffuse encephalopathy of nonspecific etiology. There are [...] Easy to chew diet/cut up. NEVILLE Jones M.A.[facility]/SENIOR VICE PRESIDENT & GENERAL COUNSEL Time session ended: 1156 Total session minutes: 23 Images from the original note were not included. Hospitalist Progress Note 10/27/2021 10:40 AM [phone]: Please page me @ [phone] for patient care issues. [phone]: Please page banking paralegal for any issues@ night Subjective: Admit Date: [...] Services This report was created using the [employer] Speaking voice-activated system. Despite prompt dictation and careful editorial review, there may be subtle contextual errors in this report, due to misrecognition of the spoken word. [facility] Anticoagulation Management Service ([facility]) Inpatient Warfarin Consult HPI: Andrew Sifuentes is a 71 y.o. 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 Past Medical History: Diagnosis Date ED (erectile dysfunction) Hemorrhoids Hydrocephalus, adult (HCC) Kidney stone Neuropathy HYDRO ELECTRIC STATION OPERATOR (ventriculoperitoneal) shunt status Patient is newly referred to [facility] for warfarin management. Pt was referred [...] PharmD IRVIN Consult Service is available daily [phone]. Please search for covering pharmacist name via [email or web address] or Groups --> Pharmacy --> Anti-Coagulation Consult Pharmacist (on 3rd page). If no response via [email or web address], please page [phone]. I cleaned under patient's finger nails with [...] therapeutic status with Warfarin. Discussed with patient's direct support staff. Will continue to monitor. Total visit time [...] if concern Hydrocephalus Chronic WOODARD's - Revised HYDRO ELECTRIC STATION OPERATOR shunt - daughter requested that pt have CT / MRI of brain and neurology be consulted, this was done. - "Hydrocephalus management per Neurosurgery. At present patient does not have hydrocephalus on CT head done this morning. No Neurosurgery services available as inpatient in [facility]. Patient can follow up with Neurosurgery as outpatient and if ends up needing inpatient neurosurgery requirement then may need to be transferred to [facility]. " Seizure history, unspecified - daughter [...] get report from nursing. Continue wound care. [facility] Anticoagulation Management Service ([facility]) Inpatient Warfarin Consult HPI: Andrew Sifuentes is a 71 y.o. 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 Past Medical History: Diagnosis Date ED (erectile dysfunction) Hemorrhoids Hydrocephalus, adult (HCC) Kidney stone Neuropathy HYDRO ELECTRIC STATION OPERATOR (ventriculoperitoneal) shunt status Patient is newly referred to the [facility] for warfarin management. Pt was referred [...] drug interactions and adjust dose accordingly. 3. [facility] will manage while inpatient and sign off at discharge. Patient resides in a SNF. 4. Will provide warfarin education including [facility] warfarin booklet, if appropriate. Thank you for this consult Brionna Le, PharmD candidate Josie Gupta [facility], PharmD [facility] Consult Service is available daily [phone]. Please search for covering pharmacist name via [email or web address] or Groups --> Pharmacy --> Anti-Coagulation Consult Pharmacist (on 3rd page). If no response via PerfectServe, please page [phone]. Moon daughter stated that any of patient's family can call and obtain an update on patient's status. Speech Language Pathology Facility/Department: [facility] MED SURG CLINICAL BEDSIDE SWALLOW EVALUATION [...] a small bore straw. Additionally discussed with SENIOR VICE PRESIDENT & GENERAL COUNSEL, agreeable to assess tomorrow. Recent Chest Xray/CT [...] and liquids between bites. Treatment Plan Requires SENIOR VICE PRESIDENT & GENERAL COUNSEL Intervention: Yes Duration of Treatment: 2 weeks [...] Education Response: Verbalizes understanding;Needs reinforcement Therapy Time SENIOR VICE PRESIDENT & GENERAL COUNSEL Individual Minutes Time In: 826 Time Out: 852 Minutes: 26 NEVILLE Jones 10/26/2021 9:20 AM Comprehensive Nutrition Assessment Type and Reason for Visit: Initial (DT referral for wounds) Nutrition Recommendations/Plan: 1. Recommend to continue: Easy to Chew diet with Thin Liquids as currently ordered and safe for patient to participate in. Discussed with: RN, BLANKING MACHINE OPERATOR, and SENIOR VICE PRESIDENT & GENERAL COUNSEL. SENIOR VICE PRESIDENT & GENERAL COUNSEL to assess tomorrow, best diet and liquid [...] & deltoids),Scapula (trapezius) Fluid Accumulation: Mild Extremities Commercial Sales Consultant Strength: Not Performed Nutrition Assessment: 71 year [...] a small bore straw. Additionally discussed with SENIOR VICE PRESIDENT & GENERAL COUNSEL, agreeable to assess tomorrow. Nutrition Related Findings: [...] Anthropometric Measures: Height: 5' 7.01" (170.2 cm) [place] Body Weight (IBW): 148 lbs (67 kg) Admission Body Weight: 240 lb (108.9 kg) (stated 10/21/21) Current Body Weight: 205 lb 4 oz (93.1 kg) (10/25/21), 138.7 % IBW. Weight Source: Bed Scale Current BMI (kg/m2): 32.1 Usual Body Weight: 272 lb 11.3 oz (123.7 kg) (05/30/21 and 232.5# noted 08/14/21 at F per EMR Review) % Weight Change (Calculated): -24.7 BMI Categories: Obese Class 1 (BMI 30.0-34.9) Estimated Daily Nutrient Needs: Energy Requirements Based On: Kcal/kg Weight Used for Energy Requirements: [place] (67.15 kg) Energy (kcal/day): 5156-1788 (27-32 kcal/kg IBW) --> increased need d/t wounds Weight Used for Protein Requirements: [place] (67.15 kg) Protein (g/day): 67-101 (1.0-1.5 g protein/kg IBW) Method Used for Fluid Requirements: Other (Comment) Fluid (ml/day): 0804-6485 mL daily or per MD Nutrition Diagnosis: [...] Plan of Care discussed with: Patient, RN, BLANKING MACHINE OPERATOR [employer] Goals: Goals: other (specify) Specify Other Goals: [...] to determine Puja Almanza RD, LD Contact: *[phone] Or Via [email or web address] Hematology/Oncology Attending Progress Note SUBJECTIVE: Patient seen [...] IRON, TIBC, FERRITIN No results found for: [id number] No results found for: FOLATE PT 15.6 INR 1.5 CA 19 - 9 is 17 Protein S 138% Protein C 186% ASSESSMENT AND PLAN GI input appreciated. Patient continues with subtherapeutic INR. GI input appreciated. Discussed with patient's direct support staff. Will continue monitor. Total visit time > 35 minutes. [facility] Anticoagulation Management [facility] ([facility]) Inpatient Warfarin Consult HPI: Andrew Sifuentes is a 71 y.o. 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 Past Medical History: Diagnosis Date ED (erectile dysfunction) Hemorrhoids Hydrocephalus, adult (HCC) Kidney stone Neuropathy HYDRO ELECTRIC STATION OPERATOR (ventriculoperitoneal) shunt status Patient is newly referred to the [facility] for warfarin management. Pt was referred [...] PharmD IRVIN Consult Service is available daily [phone]. Please search for covering pharmacist name via [email or web address] or Groups --> Pharmacy --> Anti-Coagulation Consult Pharmacist (on 3rd page). If no response via [email or web address], please page [phone]. Progress Note 10/25/2021 9:36 AM Name: Andrew [...] if concern Hydrocephalus Chronic WOODARD's - Revised HYDRO ELECTRIC STATION OPERATOR shunt DC planning - 10/25/21: INR subtherapeutic, [...] if concern Hydrocephalus Chronic WOODARD's - Revised HYDRO ELECTRIC STATION OPERATOR shunt DC planning - Can be DC'd back to ECF once MRI done if no acute findings, MRI is done, defer to hem / onc on plan for that, awaiting chest PA with fluoro Patient seen and chart reviewed. Consult dictated. Will ask GI to assess concerning the etiology of liver lesions. Will continue to monitor. [facility] Anticoagulation Management [facility] ([facility]) Inpatient Warfarin Consult HPI: Andrew Sifuentes is a 71 y.o. 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 Past Medical History: Diagnosis Date ED (erectile dysfunction) Hemorrhoids Hydrocephalus, adult (HCC) Kidney stone Neuropathy HYDRO ELECTRIC STATION OPERATOR (ventriculoperitoneal) shunt status Patient is newly referred to the [facility] for warfarin management. Pt was referred [...] PharmD IRVIN Consult Service is available daily [phone]. Please search for covering pharmacist name via [email or web address] or Groups --> Pharmacy --> Anti-Coagulation Consult Pharmacist (on 3rd page). If no response via [email or web address], please page [phone]. Follow up foot wounds Patient is more alert this morning. Waffle boots are on Ulcer left heel ulcer right foot Foot drop PE, chart reviewed. Patient relates that he does not walk at home. c ontinue wound care. Images from the original note were not included. Hospitalist Progress Note 10/23/2021 1:47 PM [phone]: Please page me ([phone]) or perfect serve me for patient care issues. [phone]: Please page [facility] night Hospitalist for any issues. Subjective: Admit Date: 10/21/2021 PCP: MONIKA STALEY MD Room#: 517/1465 Admitting Synopsis: 71 y/o male presents from [...] if concern Hydrocephalus Chronic WOODARD's - Revised HYDRO ELECTRIC STATION OPERATOR shunt DC planning - Can be DC'd [...] Hemorrhoids Hydrocephalus, adult (HCC) Kidney stone Neuropathy HYDRO ELECTRIC STATION OPERATOR (ventriculoperitoneal) shunt status Medications: sodium chloride warfarin [...] of Hospitalist Medicine Inpatient Medical Services PAGER: [phone] Nutrition rescreen completed. Pt referred to RD for foot ulcers. Occupational Therapy Facility/Department: [facility] Occupational Therapy Initial Assessment Name: Andrew Sifuentes : 1950 Date of Service: 10/23/2021 OT eval and treat orders received. Chart reviewed. Per notes pt from [facility], is Boaz lift at baseline, non-ambulatory, and requires assist for all ADLs. Will d/c OT orders. Elizabeth Gutierrez OT Physical Therapy Facility/Department: [facility] Physical Therapy Initial Assessment Name: Andrew Sifuentes : 1950 Date of Service: 10/23/2021 PT eval and treat orders received. Chart reviewed. Per notes pt from [facility], is Boaz lift at baseline, non-ambulatory. Will d/c PT orders. Lloyd Silva PT [facility] Anticoagulation Management Service (IRVIN) Inpatient Warfarin Consult HPI: Andrew Sifuentes is a 71 y.o. 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 Past Medical History: Diagnosis Date ED (erectile dysfunction) Hemorrhoids Hydrocephalus, adult (HCC) Kidney stone Neuropathy HYDRO ELECTRIC STATION OPERATOR (ventriculoperitoneal) shunt status Patient is newly referred to the [facility] for warfarin management. Pt was referred [...] drug interactions and adjust dose accordingly. 3. [facility] will manage while inpatient and sign off at discharge. Patient resides in a SNF. 4. Will provide warfarin education including [facility] warfarin booklet, if appropriate. Thank you for this consult Lisa Forrest RPH, PharmD [facility] Consult Service is available daily [phone]. Please search for covering pharmacist name via [email or web address] or Groups --> Pharmacy --> Anti-Coagulation Consult Pharmacist (on 3rd page). If no response via [email or web address], please page [phone]. Department of Podiatry Attending Consult Note Reason for Consult: Wound care Requesting Physician: MD Shailesh CHIEF COMPLAINT: Foot wounds HISTORY OF PRESENT ILLNESS: The patient is a 71 y.o. male with b/l foot wounds. Patient is awake , but not answering questions. Past Medical History: Diagnosis Date ED (erectile dysfunction) Hemorrhoids Hydrocephalus, adult (HCC) Kidney stone Neuropathy HYDRO ELECTRIC STATION OPERATOR (ventriculoperitoneal) shunt status Past Surgical History: Procedure [...] OT consulted. Will follow . Thank you. [facility] Respiratory Care Department Progress Note As [...] included. Hospitalist Progress Note 10/22/2021 6:33 AM [phone]: Please page me ([phone]) or perfect serve me for patient care issues. [phone]: Please page [facility] night Hospitalist for any [...] consider MRI if concern Hydrocephalus - Revised HYDRO ELECTRIC STATION OPERATOR shunt Interval History: No overnight issues. Denies [...] no cyanosis or edema and unable to voice network administrator BLE, this is old Musculoskeletal: Muscle loss [...] Hemorrhoids Hydrocephalus, adult (HCC) Kidney stone Neuropathy HYDRO ELECTRIC STATION OPERATOR (ventriculoperitoneal) shunt status Medications: sodium chloride baclofen 10 mg Oral TID bumetanide 2 mg Oral Daily potassium chloride 20 mEq Oral Daily sodium chloride flush 5-40 mL IntraVENous 2 times per day enoxaparin 1 mg/kg SubCUTAneous BID ipratropium-albuterol 1 ampule Inhalation Q4H GA LABS: CBC: Recent Labs 10/21/21 0210 10/22/21 [...] of Hospitalist Medicine Inpatient Medical Services PAGER: [phone] Images from the original note were not included. Hospitalist Progress Note 10/21/2021 5:31 PM [phone]: Please page me ([phone]) or perfect serve me for patient care issues. [phone]: Please page [facility] night Hospitalist for any issues. Subjective: Admit Date: 10/21/2021 PCP: MONIKA STALEY MD Room#: 365/1464 Admitting Synopsis: 71 y/o male presents from [...] Will need chronic OAC Hydrocephalus - Revised HYDRO ELECTRIC STATION OPERATOR shunt Interval History: No overnight issues. Denies [...] Hemorrhoids Hydrocephalus, adult (HCC) Kidney stone Neuropathy HYDRO ELECTRIC STATION OPERATOR (ventriculoperitoneal) shunt status Medications: sodium chloride baclofen 10 mg Oral TID bumetanide 2 mg Oral Daily potassium chloride 20 mEq Oral Daily sodium chloride flush 5-40 mL IntraVENous 2 times per day enoxaparin 1 mg/kg SubCUTAneous BID ipratropium-albuterol 1 ampule Inhalation Q4H GA LABS: CBC: Recent Labs 10/21/21 0210 WBC 11.6* RBC 3.93* HGB 10.9* HCT 33.6* MCV 85.6 RDW 17.3* PLT 404 BMP: Recent Labs 10/21/21 0210 NA 139 K 4.3 CL 105 CO2 [...] of Hospitalist Medicine Inpatient Medical Services PAGER: [phone] Family member Triny, sister to patient, called back to the hospital stating that she was returning a call from a provider. Her phone number is [phone] to speak with whomever was attempting to reach out to her. documented in this encounter [employer] Phone: 10-17-2021 Miscellaneous Notes Mr. Sifuentse missed his hospital stay follow-up appointment w. Dr. Lim today. Called to Reschedule. Could not get through. "Subscriber you have dialed not in service" - was the automated voice mail. Unable to leave . No other phone# available. Ramya Negro Call Manager [facility] documented in this encounter [facility] 08-19-2021 Note [facility] 08-19-2021 Note [facility] 08-18-2021 Note [facility] 08-18-2021 Note [facility] 08-17-2021 Note [facility] 08-17-2021 Note [facility] 08-16-2021 Note [facility] 08-16-2021 Note HNO ID: [id number] Author: Katt Kelsey DO Service: Hospital Medicine Author Type: Physician Type: Plan of Care Filed: 08/16/2021 12:26 PM Note Text: Spoke with RN that line is a PICC. Katt Kelsey DO 08/16/2021 12:26 PM [facility] 08-16-2021 Note [facility] 08-16-2021 Note [facility] 08-15-2021 Note [facility] 08-15-2021 Note [facility] 08[facility]15-2021 Note [facility] 08-14-2021 Note [facility] 08[facility]14-2021 Note [facility] 08-13-2021 Note [facility] 08-13-2021 Note [facility] 08-13-2021 Note [facility] 08-13-2021 Note HNO ID: [id number] Author: Interface Note Service: ? Author Type: ? Type: Progress Notes Filed: 08/13/2021 3:10 AM Note Text: Epic Scheduled Downtime: 08/13/2021 1:08:47 AM to 08/13/2021 2:53:47 AM [facility] 08-12-2021 Note [facility] 08-12-2021 Note [facility] 08-12-2021 Note [facility] 08-11-2021 Note [facility] 08[facility]11-2021 Note [facility] 08-11-2021 Note [facility] 08[facility]11-2021 Note [facility] 08[facility]11-2021 Note [facility] 08[facility]11-2021 Note [facility] 08[facility]10-2021 Note [facility] 08-10-2021 Note [facility] 08-10-2021 Note [facility] 08-10-2021 Note [facility] 08-09-2021 Note HNO ID: [id number] Author: Shannon Brooks RN Service: ? Author Type: Registered Nurse Type: Nursing Progress Note Filed: 08/09/2021 7:33 PM Note Text: Report called to unit [facility] 08-09-2021 Note [facility] 08-09-2021 Note [facility] 08-09-2021 Note [facility] 08-08-2021 Note [facility] 08-08-2021 Note [facility] 08-08-2021 Note [facility] 08-07-2021 Note [facility] 08[facility]07-2021 Note [facility] 08-07-2021 Note [facility] 08[facility]07-2021 Note [facility] 08-07-2021 Note [facility] 08-06-2021 Note [facility] 08-06-2021 Note [facility] 08-06-2021 Note [facility] 08-05-2021 Note [facility] 08-05-2021 Note [facility] 08-05-2021 Note [facility] 08-04-2021 Note [facility] 08[facility]04-2021 Note [facility] 08[facility]04-2021 Note [facility] 08-03-2021 Note [facility] 08[facility]03-2021 Note [facility] 08[facility]03-2021 Note [facility] 08-02-2021 Note [facility] 08[facility]02-2021 Note [facility] 08-02-2021 Note [facility] 08-01-2021 Note [facility] 08-01-2021 Note [facility] 08-01-2021 Note [facility] 08-01-2021 Note [facility] 07-31-2021 Note [facility] 07-31-2021 Note [facility] 07-30-2021 Note [facility] 07-30-2021 Note [facility] 07-30-2021 Note [facility] 07-29-2021 Note [facility] 07-29-2021 Note [facility] 07[facility]29-2021 Note [facility] 07-28-2021 Note [facility] 07-28-2021 Note [facility] 07-28-2021 Note [facility] 07-27-2021 Note [facility] 07[facility]27-2021 Note [facility] 07-27-2021 Note [facility] 07-26-2021 Note [facility] 07-26-2021 Note [facility] 07-26-2021 Note [facility] 07[facility]26-2021 Note [facility] 07-26-2021 Note [facility] 07-25-2021 Note [facility] 07[facility]25-2021 Note [facility] 07-25-2021 Note [facility] 07-25-2021 Note [facility] 07-24-2021 Note [facility] 07-24-2021 Note [facility] 07-24-2021 Note [facility] 07-23-2021 Note [facility] 07-23-2021 Note [facility] 07-23-2021 Note [facility] 07-23-2021 Note [facility] 07-23-2021 Note [facility] 07-22-2021 Note [facility] 07[facility]22-2021 Note [facility] 07-22-2021 Note [facility] 07-21-2021 Note [facility] 07[facility]21-2021 Note [facility] 07-21-2021 Note [facility] 07-21-2021 History of [...] history of fever, elevated WBC, RP hematoma HYDRO ELECTRIC STATION OPERATOR shunt tip grew anaerobic gram positive cocci 06/08/2021 PLAN: HYDRO ELECTRIC STATION OPERATOR shunt tip sent to [facility] main, awaiting cx Continue Meropenem per [...] - following CSF studies; 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 for AUDIOMETRIST infection at this time - ID following- Continue antibiotics: Meropenem -CSF leak from EVD site, appreciate NSGY recs> stat repeat CTH on 06/07 d/t concern for CSF leak, cephalematoma, CTH unremarkable -Tolerating TF - SBT WTE - PICC line placed documented as of this encounter (statuses as of 10/17/2021) [facility]03-17-2022 [facility]03-16-2022 [facility]03-16-2022 [facility]03-16-2022 Note [facility]03-16-2022 [facility] 07-19-2021 [facility]03-15-2022 [facility]03-15-2022 [facility]03-14-2022 [facility]03-14-2022 [facility]03-13-2022 [facility]03-13-2022 [facility]03-12-2022 Note [facility]03-12-2022 [facility] 07-15-2021 [facility]03-11-2022 [facility]03-10-2022 [facility]03-10-2022 [facility]03[facility]10-2022 [facility]03-09-2022 [facility]03-09-2022 [facility]03-09-2022 Note [facility]03-09-2022 [facility] 07-12-2021 [facility]03-08-2022 [facility]03-07-2022 [facility]03-07-2022 [facility]03-07-2022 [facility]03-07-2022 [facility]03-06-2022 [facility]03-06-2022 Note [facility]03-05-2022 [facility] 07-09-2021 [facility]03-05-2022 [facility]03-05-2022 [facility]03-05-2022 NoteHNO ID: [id number] Author: Lizette Valderrama RN Service: Nursing Author Type: Registered Nurse Type: Nursing Progress Note Filed: 07/09/2021 1:41 AM Note Text: Report called to [facility]03-04-2022 NoteHNO ID: [id number] Author: Lizette Valderrama RN Service: Nursing Author Type: Registered Nurse Type: Nursing Progress Note Filed: 07/08/2021 8:57 PM Note Text: [address] 2049 back to PACU [facility]03-04-2022 NoteHNO ID: [id number] Author: Sukhi Chery APRN.CNP Service: ? Author Type: Nurse Practitioner Type: Progress Notes Filed: 07/09/2021 6:46 PM Note Text: Connected Care Unit Progress Note Patient Name: Andrew Sifuentes Patient Facility: [place] Admit Date 06/28/2021 Level of Care: Skilled [...] shunt - AANDOx1 and obtunded - Dr. Otvos with Neurosurgery Following - Concerning changes noted [...] Location Dept Phone 07/21/2021 11:00 AM [facility] [phone] HPI: (Per Dr. Beltran) Andrew Sifuentes is being seen today for nursing home facility (SNF) admission AND management of weakness, tube feed, infected retroperitoneal infection and seizure. ? This is a 71 year old male who presents from [facility] with primary admitting diagnosis of Seizure, [...] CT brain concerning for hydrocephalus. Tip of HYDRO ELECTRIC STATION OPERATOR shunt was found to be in the [...] slow to respond. Ordered to transfer to [facility] ED for evaluation of neurological and [...] changes in co (more content not included)... [facility]03-04-2022 [facility]03-04-2022 [facility]03-02-2022 NoteHNO ID: [id number] Author: Sukhi Chery APRN.VICTORIANO Service: ? Author Type: Nurse Practitioner Type: Progress Notes Filed: 07/09/2021 6:20 PM Note Text: Connected Care Unit Progress Note Patient Name: Andrew Sifuentes Patient Facility: [facility] Admit Date 06/28/2021 Level of Care: Skilled [...] whether septic shock present (HCC) - Dr. Mkcenzie with ID Following - Continue on Vancomycin - PICC Line Intact - No fevers or chills per patient or staff (R53.81) Debility - Certify therapies - Maintain high falls risk precautions - pt/staff verbalize understanding validated via teach back - Monitor safety awareness Appointments for Next 60 Days Date Time Provider Location Dept Phone 07/21/2021 11:00 AM CHANDLERCELINALISSY STEPH LAWTON [phone] HPI: (Per Dr. Beltran) Andrew Sifuentes is being seen today for nursing home facility (SNF) admission AND management of weakness, tube feed, infected retroperitoneal infection and seizure. ? This is a 71 year old male who presents from [facility] with primary admitting diagnosis of Seizure, [...] CT brain concerning for hydrocephalus. Tip of HYDRO ELECTRIC STATION OPERATOR shunt was found to be in the [...] Pharynx: Oropharynx is clear. (more content not included)...[facility]02-28-2022 NoteHNO ID: [id number] Author: Sukhi Chery APRN.VICTORIANO Service: ? Author Type: Nurse Practitioner Type: Progress Notes Filed: 07/09/2021 6:07 PM Note Text: Connected Care Unit Progress Note Patient Name: Andrew Sifuentes Patient Facility: [facility] Admit Date 06/28/2021 Level of Care: Skilled [...] but nursing notes it was drawn by pelota maker as vancomycin was being infused; reordered trough - PICC Line Intact - No fevers or chills per patient or staff (R53.81) Debility - Certify therapies - Maintain high falls risk precautions - pt/staff verbalize understanding validated via teach back - Monitor safety awareness Appointments for Next 60 Days Date Time Provider Location Dept Phone 07/21/2021 11:00 AM NICOLE LIM [phone] HPI: (Per Dr. Beltran) Andrew Sifuentes is being seen today for nursing home facility (SNF) admission AND management of weakness, tube feed, infected retroperitoneal infection and seizure. ? This is a 71 year old male who presents from [facility] with primary admitting diagnosis of Seizure, [...] CT brain concerning for hydrocephalus. 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 OBJECTIVE: Labs/diagnostics: 07/04/2021 Glucose=91 Ch=889 K=3.8 Ul=640 CO2=24 BUN=14 Creatinine=0.5 BSC=953 Ca=9.0 Protein,Total=6.7 Albumin=3.6 RbiWzvz=696 AST=15 ALT=21 Bilirubin,Totall=0.5 WBC=10.7 RBC=4.04 Hgb=10.9 Hct=35.3 Dtccznfp=420 VancomycinTr (more content not included)...[facility]02-24-2022 NoteHNO ID: [id number] Author: Sukhi Chery APRN.CNP Service: ? Author Type: Nurse Practitioner Type: Progress Notes Filed: 07/09/2021 5:43 PM Note Text: Connected Care Unit Progress Note Patient Name: Andrew Sifuentes Patient Facility: [place] Admit Date 06/28/2021 Level of Care: Skilled [...] Dept Phone 07/21/2021 11:00 AM NICOLE LIM [phone] HPI: (Per Dr. Beltran) Andrew Sifuentes is being seen today for nursing home facility (SNF) admission AND management of weakness, tube feed, infected retroperitoneal infection and seizure. ? This is a 71 year old male who presents from [facility] with primary admitting diagnosis of Seizure, [...] CT brain concerning for hydrocephalus. 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 OBJECTIVE: Labs/diagnostics: 07/01/2021 Glucose=83 Cs=845 K=4.1 Sr=186 CO2=27 BUN=22 Creatinine=0.6 RMA=409 Ca=8.7 WBC=10.8 RBC=3.40 Hgb=9.3 Hct=29.9 Dydbfvxl=520 Vital Signs: BP 128/80 Pulse 77 Temp 36.7 ?C (98 ?F) Resp 20 Ht 182.9 cm (6') Wt 113 kg (249 lb 3.2 oz) SpO2 96% BMI 33.80 kg/m? Physical Exam: Physical Exam Vitals reviewed. Constitutional: General: He is not in acute distress. (more content not included)...[facility]02-22-2022 [facility]02-22-2022 [facility]02-21-2022 [facility]02-21-2022 Note [facility]02-20-2022 [facility] 06-26-2021 [facility]02-19-2022 [facility]02-19-2022 [facility]02-18-2022 [facility]02[facility]18-2022 [facility]02-18-2022 [facility]02-17-2022 [facility]02-17-2022 Note [facility]02-17-2022 [facility] 06-22-2021 NoteO ID: [id number] Author: Xiomy England RN Service: Nursing Author Type: Registered Nurse Type: Nursing Progress Note Filed: 06/22/2021 7:22 PM Note Text: RT contacted as pt has wheezing auscultated and same auditory. For prn Treatment.[facility]02-16-2022 [facility]02-16-2022 [facility]02-16-2022 [facility]02-16-2022 [facility]02-16-2022 [facility]02-15-2022 [facility]02-15-2022 Note [facility]02-15-2022 [facility] 06[facility]21-2021 [facility]02-14-2022 [facility]02-14-2022 [facility]02-14-2022 [facility]02-14-2022 [facility]02[facility]14-2022 [facility]02-13-2022 [facility]02[facility]13-2022 Note [facility]02-13-2022 [facility] 06[facility]19-2021 [facility]02-13-2022 [facility]02-12-2022 [facility]02-12-2022 [facility]02-12-2022 [facility]02-12-2022 [facility]02-12-2022 [facility]02-12-2022 Note [facility]02-12-2022 NoteHNO ID: [id number] Author: Interface Note Service: ? Author Type: ? Type: Progress Notes Filed: 06/18/2021 3:10 AM Note Text: Epic Scheduled Downtime: 06/18/2021 1:00:00 AM to 06/18/2021 2:27:00 [facility]02-11-2022 [facility]02-11-2022 Note [facility]02-11-2022 [facility] 06-17-2021 [facility]02-11-2022 [facility]02-11-2022 [facility]02-10-2022 [facility]02-10-2022 [facility]02[facility]10-2022 [facility]02-10-2022 [facility]02-10-2022 Note [facility]02-10-2022 [facility] 06-15-2021 [facility]02-09-2022 NoteHNO ID: [id number] Author: Lamonte Kline DO Service: Neurology ICU Author Type: Resident Type: Plan of Care Filed: 06/15/2021 6:21 PM Note Text: Patient's daughter Melissa updated on plan of care and critical condition, all questions answered.[facility]02-09-2022 [facility]02-09-2022 [facility]02-09-2022 [facility]02-09-2022 [facility]02[facility]09-2022 Note [facility]02-09-2022 [facility] 06-15-2021 [facility]02-08-2022 [facility]02-08-2022 [facility]02[facility]08-2022 [facility]02-08-2022 [facility]02-07-2022 [facility]02-07-2022 [facility]02-07-2022 Note [facility]02-07-2022 [facility] 06-12-2021 [facility]02-06-2022 [facility]02-06-2022 [facility]02-05-2022 [facility]02-05-2022 [facility]02-04-2022 [facility]02-04-2022 [facility]02-04-2022 Note [facility]02-04-2022 [facility] 06-09-2021 [facility]02-03-2022 [facility]02-03-2022 [facility]02-03-2022 [facility]02-02-2022 [facility]02-02-2022 NoteHNO ID: [id number] Author: Luis Diaz RN Service: ? Author Type: Registered Nurse Type: Nursing Progress Note Filed: 06/08/2021 9:23 AM Note Text: Patient off the floor to OR at this time.[facility]02-02-2022 [facility]02-02-2022 [facility] 06-08-2021 NoteHNO ID: [id number] Author: Eloise Samuel RN Service: ? Author Type: Registered Nurse Type: Nursing Progress Note Filed: 06/08/2021 12:46 AM Note Text: Dr. Brito notified of changes throughout shift. No new orders [facility] 06-07-2021 NoteHNO ID: [id number] Author: Eloise Samuel RN Service: ? Author Type: Registered Nurse Type: Nursing Progress Note Filed: 06/07/2021 8:01 PM Note Text: Neuro surg INSURANCE ADVISER notified of downward deviation of pupils. No new orders at this time.[facility] [facility]-01-2022 [facility]02-01-2022 [facility]02-01-2022 [facility]02-01-2022 [facility]01-31-2022 [facility]01-31-2022 [facility]01[facility]31-2022 Note [facility]01-31-2022 [facility] 06-05-2021 [facility]01-30-2022 [facility]01-30-2022 [facility]01-29-2022 [facility]01-29-2022 NoteHNO ID: [id number] Author: Jermaine Miller PA-C Service: Neurosurgery Author Type: Physician Cash Grain Grower Type: Plan of Care Filed: 06/04/2021 1:59 PM Note Text: Discussed with Dr. Charles CT brain results. At this time, continue with EVD at 5 [facility]01-29-2022 [facility] 06-04-2021 [facility]01-28-2022 [facility]01-28-2022 NoteHNO ID: [id number] Author: Mauricio Frank DO Service: Neurology ICU Author Type: Physician Type: Plan of Care Filed: 06/03/2021 2:38 PM Note Text: I spoke with Melissa and updated her over the phone. Mauricio Frank, [facility]01-28-2022 [facility]01-28-2022 [facility]01-27-2022 [facility]01-27-2022 [facility]01-27-2022 Note [facility]01-26-2022 [facility] 06-01-2021 [facility]01-26-2022 [facility]01-26-2022 [facility]01[facility]26-2022 [facility]01-25-2022 [facility]01[facility]25-2022 [facility]01-25-2022 [facility]01-25-2022 Note [facility]01-25-2022 [facility] Leg swelling- Primary Swelling of limb Acute deep vein thrombosis (DVT) of proximal vein of lower extremity, unspecified laterality (HCC) DVT, lower extremity, recurrent, unspecified laterality (HCC) Moderate malnutrition (HCC) Malnutrition of moderate degree History of seizures Personal history of other disorders of nervous system and sense organs [facility] Work Phone: Evaluation noteNo assessment information available [facility] Work Phone: Evaluation note* Diagnosis Other fatigue- Primary documented in this encounter [facility] Work Phone: Evaluation note* Diagnosis Heel ulceration, left, with unspecified severity (HCC)- Primary documented in this encounter [facility] Work Phone: Evaluation note* Diagnosis Fall, initial encounter- Primary Anticoagulated Encounter for long-term (current) use of 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 [facility] Work Phone: Evaluation note* Diagnosis Left flank pain- Primary Abdominal pain, unspecified site Calculus of ureter Disease of prostate Unspecified disorder of prostate BPH with urinary obstruction Hypertrophy of prostate with urinary obstruction and other lower urinary tract symptoms (LUTS) [facility] Diagnosis Left flank pain Abdominal pain, unspecified site Calculus of ureter [facility] Left flank pain- Primary Abdominal pain, unspecified site BPH with urinary obstruction Hypertrophy of prostate with urinary obstruction and other lower urinary tract symptoms (LUTS) History of kidney stones documented [facility] HealthInstructions* Name Dates Details Instructions not documented [id number] Work Phone: Instructions* Name Dates Details Instructions not documented [id number] [place] Work Phone: Reason for referral (narrative)No reason for referral information [facility] Work Phone: Advance Directives No Advanced Directives Records FoundDocuments on File Type Date Recorded Patient Product Picker Expl anation Advance Directives and Living Will Power of Photo Checker Documents on File Type Date Recorded Patient Product Picker Expl anation Advance Directive(s) 06/02/2021 2:45 PM [...] Maker Relationship: 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 Adult 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) Documents on File Type Date Recorded Patient Product Picker Expl anation ACP-Advance Directive ACP-Power of Photo Checker Latest Code Status on File Code Status Date Activated Date Inactivated Comments Full Code 10/21/2021 4:09 AM Healthcare Agents on File Name Relationship Healthcare Agent Relationshi p Communication Melissakb Sifuentes Child Primary Decision Maker deannsilvia Sifuentes Child Secondary Decision Maker Documents on File Type Date Recorded Patient Product Picker Expl anation ACP-Advance Directive ACP-Power of Photo Checker ACP-Do Not Resuscitate 11/01/2021 7:03 AM Latest Code Status on File Code Status Date Activated Date Inactivated Comments Full Code 10/21/2021 4:09 AM 10/29/2021 7:25 PM Healthcare Agents on File Name Relationship Healthcare Agent Relationshi p Communication Melissa Gurpreet Child Primary Decision Maker deann Dengyer Child Secondary Decision Maker Documents on File Type Date Recorded Patient Product Picker Expl anation ACP-Do Not Resuscitate 11/03/2021 10:15 AM ACP-Do Not Resuscitate 11/01/2021 7:03 AM Healthcare Agents on File Name Relationship Healthcare Agent Relationshi p Communication Melissa Gurpreet Child Primary Decision Maker deann Gurpreet Child Secondary Decision Maker Documents on File Type Date Recorded Patient Product Picker Expl anation ACP-Do Not Resuscitate 11/03/2021 10:15 AM ACP-Do Not Resuscitate 11/01/2021 7:03 AM Latest Code Status on File Code Status Date Activated Date Inactivated Comments Full Code 10/21/2021 4:09 AM 10/29/2021 7:25 PM Healthcare Agents on File Name Relationship Healthcare Agent Relationshi p Communication Melissakb Dengyer Child Primary Decision Maker deann Dengyer Child Secondary Decision Maker Documents on File Type Date Recorded Patient Product Picker Expl anation DNR (Do Not Resuscitate) 10/31/2021 DNR (Do Not Resuscitate) 10/21/2021 Documents on File Type Date Recorded Patient Product Picker Expl anation DNR (Do Not Resuscitate) 10/31/2021 [...] WORK LABWORK Chief Complaint LAB WORK LABWORK ASSISTED LAB WORK ASSISTED LABWORK Chief Complaint LAB WORK LABWORK ASSISTED LAB WORK ASSISTED LABWORK LABWORK LABWORK ASSISTED LAB WORK ASSISTED LABWORK ASSISTED LAB WORK LABWORK ASSISTED LAB WORK LABWORK ASSISTED LABWORK Chief Complaint LAB WORK LABWORK ASSISTED LAB WORK ASSISTED LABWORK LABWORK LABWORK ASSISTED LAB WORK ASSISTED LABWORK ASSISTED LAB WORK LABWORK ASSISTED LAB WORK LABWORK ASSISTED LABWORK ASSISTED LABWORK LABWORK Chief Complaint LAB WORK LABWORK ASSISTED LAB WORK ASSISTED LABWORK LABWORK LABWORK ASSISTED LAB WORK ASSISTED LABWORK ASSISTED LAB WORK LABWORK ASSISTED LAB WORK LABWORK ASSISTED LABWORK ASSISTED LABWORK LABWORK ASSISTED LAB WORK Chief Complaint LABWORK ASSISTED LAB WORK ASSISTED LABWORK LABWORK LABWORK ASSISTED LAB WORK ASSISTED LABWORK ASSISTED LAB WORK LABWORK ASSISTED LAB WORK LABWORK ASSISTED LABWORK ASSISTED LABWORK LABWORK LABWORK ASSISTED LAB WORK Chief Complaint LABWORK ASSISTED LAB WORK ASSISTED LABWORK LABWORK LABWORK ASSISTED LAB WORK ASSISTED LABWORK ASSISTED LAB WORK LABWORK ASSISTED LAB WORK LABWORK ASSISTED LABWORK ASSISTED LABWORK LABWORK LABWORK ASSISTED LAB WORK LABWORK ASSISTED LABWORK ASSISTED LAB WORK ASSISTED LABWORK Chief Complaint ASSISTED LAB WOR K ASSISTED LABWORK LABWORK LABWORK ASSISTED LAB WORK ASSISTED LABWORK ASSISTED LAB WORK LABWORK ASSISTED LAB WORK LABWORK ASSISTED LABWORK ASSISTED LABWORK LABWORK LABWORK ASSISTED LAB WORK LABWORK ASSISTED LABWORK ASSISTED LAB WORK ASSISTED LABWORK ASSISTED LAB WORK Chief Complaint ASSISTED LABWORK LABWORK LABWORK ASSISTED LAB WORK ASSISTED LABWORK ASSISTED LAB WORK LABWORK ASSISTED LAB WORK LABWORK ASSISTED LABWORK ASSISTED LABWORK LABWORK LABWORK ASSISTED LAB WORK LABWORK ASSISTED LABWORK ASSISTED LAB WORK ASSISTED LABWORK LABWORK ASSISTED LAB WORK Chief Complaint ASSISTED LAB WOR K ASSISTED LABWORK ASSISTED LAB WORK LABWORK ASSISTED LAB WORK LABWORK ASSISTED LABWORK ASSISTED LABWORK LABWORK LABWORK ASSISTED LAB WORK LABWORK ASSISTED LABWORK ASSISTED LAB WORK ASSISTED LABWORK LABWORK LABWORK ASSISTED LAB WORK ASSISTED PATIENT ASSISTED LABWORK ASSISTED LABWORK Chief Complaint LABWORK ASSISTED LAB WORK LABWORK ASSISTED LABWORK ASSISTED LABWORK LABWORK LABWORK ASSISTED LAB WORK LABWORK ASSISTED LABWORK ASSISTED LAB WORK ASSISTED LABWORK LABWORK LABWORK ASSISTED LAB WORK ASSISTED PATIENT ASSISTED LABWORK ASSISTED LABWORK ASSISTED LAB WORK Chief Complaint LABWORK ASSISTED LABWORK ASSISTED LABWORK LABWORK LABWORK ASSISTED LAB WORK LABWORK ASSISTED LABWORK ASSISTED LAB WORK ASSISTED LABWORK LABWORK LABWORK ASSISTED LAB WORK ASSISTED PATIENT ASSISTED LABWORK ASSISTED LABWORK ASSISTED LAB WORK ASSISTED LAB WORK ASSISTED LAB WORK Chief Complaint LABWORK LABWORK ASSISTED LAB WORK ASSISTED PATIENT ASSISTED LABWORK ASSISTED LABWORK ASSISTED LAB WORK ASSISTED LAB WORK ASSISTED LAB WORK ASSISTED LABWORK ASSISTED LABWORK LABWORK ASSISTED LAB WORK LABWORK Chief Complaint ASSISTED LAB WOR K ASSISTED PATIENT ASSISTED LABWORK ASSISTED LABWORK ASSISTED LAB WORK ASSISTED LAB WORK ASSISTED LAB WORK ASSISTED LABWORK ASSISTED LABWORK LABWORK ASSISTED LAB WORK LABWORK ASSISTED LABWORK Chief Complaint ASSISTED PATIENT ASSISTED LABWORK ASSISTED LABWORK ASSISTED LAB WORK ASSISTED LAB WORK ASSISTED LAB WORK ASSISTED LABWORK ASSISTED LABWORK LABWORK ASSISTED LAB WORK LABWORK ASSISTED LABWORK ASSISTED LABWORK Chief Complaint ASSISTED LABWORK ASSISTED LAB WORK ASSISTED LAB WORK ASSISTED LAB WORK ASSISTED LABWORK ASSISTED LABWORK LABWORK ASSISTED LAB WORK LABWORK ASSISTED LABWORK ASSISTED LABWORK ASSISTED LABWORK Chief Complaint ASSISTED LABWORK ASSISTED LAB WORK ASSISTED LAB WORK ASSISTED LAB WORK ASSISTED LABWORK ASSISTED LABWORK LABWORK ASSISTED LAB WORK LABWORK ASSISTED LABWORK ASSISTED LABWORK ASSISTED LABWORK ASSISTED LABWORK Chief Complaint ASSISTED LABWORK LABWORK ASSISTED LAB WORK LABWORK ASSISTED LABWORK ASSISTED LABWORK ASSISTED LABWORK ASSISTED LABWORK ASSISTED LABWORK LABWORK ASSISTED LABWORK Chief Complaint LABWORK ASSISTED LAB WORK LABWORK ASSISTED LABWORK ASSISTED LABWORK ASSISTED LABWORK ASSISTED LABWORK ASSISTED LABWORK LABWORK LABWORK ASSISTED LABWORK ASSISTED LAB WORK ASSISTED LABWORK ASSISTED LAB WORK Chief Complaint LABWORK ASSISTED LAB WORK LABWORK ASSISTED LABWORK ASSISTED LABWORK ASSISTED LABWORK ASSISTED LABWORK ASSISTED LABWORK LABWORK LABWORK ASSISTED LABWORK ASSISTED LAB WORK ASSISTED LABWORK ASSISTED LAB WORK ASSISTED LABWORK Chief Complaint LABWORK ASSISTED LAB WORK LABWORK ASSISTED LABWORK ASSISTED LABWORK ASSISTED LABWORK ASSISTED LABWORK ASSISTED LABWORK LABWORK LABWORK ASSISTED LABWORK ASSISTED LAB WORK ASSISTED LABWORK ASSISTED LAB WORK ASSISTED LABWORK LABWORK Chief Complaint ASSISTED LABWORK ASSISTED LABWORK ASSISTED LABWORK ASSISTED LABWORK ASSISTED LABWORK LABWORK LABWORK ASSISTED LABWORK ASSISTED LAB WORK ASSISTED LABWORK ASSISTED LAB WORK ASSISTED LABWORK LABWORK ASSISTED LABWORK Chief Complaint ASSISTED LABWORK ASSISTED LABWORK ASSISTED LABWORK ASSISTED LABWORK ASSISTED LABWORK LABWORK LABWORK ASSISTED LABWORK ASSISTED LAB WORK ASSISTED LABWORK ASSISTED LAB WORK ASSISTED LABWORK LABWORK ASSISTED LABWORK LABWORK Chief Complaint ASSISTED LABWORK LABWORK LABWORK ASSISTED LABWORK ASSISTED LAB WORK ASSISTED LABWORK ASSISTED LAB WORK ASSISTED LABWORK LABWORK ASSISTED LABWORK LABWORK ASSISTED LAB WORK ASSISTED LAB WORK ASSISTED LABWORK Chief Complaint LABWORK ASSISTED LABWORK LABWORK ASSISTED LAB WORK ASSISTED LAB WORK ASSISTED LABWORK ASSISTED LABWORK ASSISTED LAB WORK ASSISTED LAB WORK ASSISTED LAB WORK LABWORK ASSISTED LABWORK Chief Complaint ASSISTED LAB WOR K ASSISTED LAB WORK ASSISTED LABWORK ASSISTED LABWORK ASSISTED LAB WORK ASSISTED LAB WORK ASSISTED LAB WORK LABWORK ASSISTED LABWORK LABWORK ASSISTED LAB WORK ASSISTED LAB WORK Chief Complaint ASSISTED LAB WOR K ASSISTED LABWORK ASSISTED LABWORK ASSISTED LAB WORK ASSISTED LAB WORK ASSISTED LAB WORK LABWORK ASSISTED LABWORK LABWORK ASSISTED LAB WORK ASSISTED LAB WORK Chief Complaint ASSISTED LABWORK ASSISTED LABWORK ASSISTED LAB WORK ASSISTED LAB WORK ASSISTED LAB WORK LABWORK ASSISTED LABWORK LABWORK ASSISTED LAB WORK ASSISTED LAB WORK ASSISTED LABWORK LABWORK LABWORK Chief Complaint ASSISTED LAB WOR K ASSISTED LAB WORK ASSISTED LAB WORK LABWORK ASSISTED LABWORK LABWORK ASSISTED LAB WORK ASSISTED LAB WORK ASSISTED LABWORK LABWORK LABWORK LABWORK LABWORK LABWORK Chief Complaint ASSISTED LAB WOR K LABWORK ASSISTED LABWORK LABWORK ASSISTED LAB WORK ASSISTED LAB WORK ASSISTED LABWORK LABWORK LABWORK LABWORK LABWORK ASSISTED LABWORK ASSISTED LAB WORK LABWORK ASSISTED LAB WORK ASSISTED LAB WORK Chief Complaint ASSISTED LAB WOR K LABWORK ASSISTED LABWORK LABWORK ASSISTED LAB WORK ASSISTED LAB WORK ASSISTED LABWORK LABWORK LABWORK LABWORK LABWORK ASSISTED LABWORK ASSISTED LAB WORK LABWORK ASSISTED LAB WORK ASSISTED LAB WORK ASSISTED LABWORK Chief Complaint ASSISTED LAB WOR K ASSISTED LAB WORK ASSISTED LABWORK LABWORK LABWORK LABWORK LABWORK ASSISTED LABWORK ASSISTED LAB WORK LABWORK ASSISTED LAB WORK ASSISTED LAB WORK ASSISTED LABWORK NUSING HOME LAB WORK Chief Complaint ASSISTED LAB WOR K ASSISTED LABWORK LABWORK LABWORK LABWORK LABWORK ASSISTED LABWORK ASSISTED LAB WORK LABWORK ASSISTED LAB WORK ASSISTED LAB WORK ASSISTED LABWORK NUSING HOME LAB WORK LABWORK Chief Complaint ASSISTED LAB WOR K ASSISTED LABWORK LABWORK LABWORK LABWORK LABWORK ASSISTED LABWORK ASSISTED LAB WORK LABWORK ASSISTED LAB WORK ASSISTED LAB WORK ASSISTED LABWORK NUSING HOME LAB WORK ASSISTED LABWORK LABWORK Chief Complaint LABWORK ASSISTED LAB WORK ASSISTED LAB WORK ASSISTED LABWORK NUSING HOME LAB WORK ASSISTED LABWORK LABWORK ASSISTED LABWORK ASSISTED LAB WORK LABWORK LABWORK Chief Complaint NUSING HOME LAB WORK ASSISTED LABWORK LABWORK ASSISTED LABWORK ASSISTED LAB WORK LABWORK ASSISTED LAB WORK LABWORK LABWORK Chief Complaint NUSING HOME LAB WORK ASSISTED LABWORK LABWORK ASSISTED LABWORK ASSISTED LAB WORK LABWORK ASSISTED LAB WORK LABWORK ASSISTED LAB WORK LABWORK Chief Complaint ASSISTED LABWORK LABWORK ASSISTED LABWORK ASSISTED LAB WORK LABWORK ASSISTED LAB WORK LABWORK ASSISTED LAB WORK LABWORK LABWORK Chief Complaint ASSISTED LABWORK LABWORK ASSISTED LABWORK ASSISTED LAB WORK LABWORK ASSISTED LAB WORK LABWORK ASSISTED LAB WORK LABWORK LABWORK LABWORK Chief Complaint ASSISTED LABWORK LABWORK ASSISTED LABWORK ASSISTED LAB WORK LABWORK ASSISTED LAB WORK LABWORK ASSISTED LAB WORK LABWORK LABWORK LABWORK LABWORK Chief Complaint ASSISTED LABWORK LABWORK ASSISTED LABWORK ASSISTED LAB WORK LABWORK ASSISTED LAB WORK LABWORK ASSISTED LAB WORK LABWORK LABWORK ASSISTED LAB WORK LABWORK LABWORK LABWORK Chief Complaint LABWORK ASSISTED LABWORK ASSISTED LAB WORK LABWORK ASSISTED LAB WORK LABWORK ASSISTED LAB WORK LABWORK LABWORK ASSISTED LAB WORK LABWORK LABWORK LABWORK LABWORK LABWORK LABWORK LABWORK Chief Complaint ASSISTED LABWORK ASSISTED LAB WORK LABWORK ASSISTED LAB WORK LABWORK ASSISTED LAB WORK LABWORK LABWORK ASSISTED LAB WORK LABWORK LABWORK LABWORK LABWORK LABWORK LABWORK LABWORK LABWORK Chief Complaint LABWORK ASSISTED LAB WORK LABWORK ASSISTED LAB WORK LABWORK LABWORK ASSISTED LAB WORK LABWORK LABWORK LABWORK LABWORK LABWORK LABWORK LABWORK LABWORK LABWORK Chief Complaint ASSISTED LABWORK LABWORK LABWORK LABWORK LABWORK ASSISTED LABWORK ASSISTED LAB WORK LABWORK ASSISTED LAB WORK ASSISTED LAB WORK ASSISTED LABWORK NUSING HOME LAB WORK ASSISTED LABWORK LABWORK ASSISTED LABWORK ASSISTED LAB WORK Chief Complaint Admit Date ASSISTED LAB WORK March 13, 2024 5:00am LABWORK March 14, 2024 5 :00am ASSISTED LAB WORK March 17 4 5:00am ASSISTED LAB WORK March 18 4 5:00am ASSISTED LAB WORK March 19 4:00am ASSISTED LAB WORK March 20 5:00am ASSISTED LAB WORK March 24 4 5:00am ASSISTED LAB WORK March 27 5:00am LABWORK March 31, 2024 5:00am ASSISTED LAB WORK April 04 5:00am LABWORK April 07, 2024 5 :00am ASSISTED LAB WORK April 10, 2024 5:00am ASSISTED LAB WORK April 14, 2024 5:00am ASSISTED LAB WORK April 17 5:00am LABWORK April 21, 2024 5:00am ASSISTED LAB WORK April 24 4:00am LABWORK April 28, 2024 5:00am ASSISTED LAB WORK May 01 4:00am ASSISTED LAB WORK May 05 5:00am ASSISTED LAB WORK May 08, 2024 5:00am ASSISTED LAB WORK May 09, 2024 4:00am LABWORK May 12, 2024 5: 00am ASSISTED LAB WORK May 15, 2024 5:00am ASSISTED LAB WORK May 19, 2024 4:00am ASSISTED LAB WORK May 20, 2024 5:00am ASSISTED LAB WORK May 22, 2024 5:00am LABWORK May 26, 2024 5 :00am ASSISTED LAB WORK May 29, 2024 5:00am ASSISTED LAB WORK June 02, 2024 5:00am ASSISTED LAB WORK June 05, 2024 5:00am LABWORK June 09, 2024 5 :00am ASSISTED LAB WORK June 12, 2024 5:00am ASSISTED LAB WORK June 16 5:00am ASSISTED LAB WORK June 19 5:00am LABWORK June 23, 2024 5:00am ASSISTED LAB WORK June 26 5:00am ASSISTED LAB WORK June 30 5:00am Chief Complaint Admit Date LABWORK April 07, 2024 5 :00am ASSISTED LAB WORK April 10, 2024 5:00am ASSISTED LAB WORK April 14, 2024 5:00am ASSISTED LAB WORK April 17 5:00am LABWORK April 21, 2024 5:00am ASSISTED LAB WORK April 24 4:00am LABWORK April 28, 2024 5:00am ASSISTED LAB WORK May 01 4:00am ASSISTED LAB WORK May 05 5:00am ASSISTED LAB WORK May 08, 2024 5:00am ASSISTED LAB WORK May 09, 2024 4:00am LABWORK May 12, 2024 5: 00am ASSISTED LAB WORK May 15, 2024 5:00am ASSISTED LAB WORK May 19, 2024 4:00am ASSISTED LAB WORK May 20, 2024 5:00am ASSISTED LAB WORK May 22, 2024 5:00am LABWORK May 26, 2024 5 :00am ASSISTED LAB WORK May 29, 2024 5:00am ASSISTED LAB WORK June 02, 2024 5:00am ASSISTED LAB WORK June 05, 2024 5:00am LABWORK June 09, 2024 5 :00am ASSISTED LAB WORK June 12, 2024 5:00am ASSISTED LAB WORK June 16 5:00am ASSISTED LAB WORK June 19 5:00am LABWORK June 23, 2024 5:00am ASSISTED LAB WORK June 26 5:00am ASSISTED LAB WORK June 30 5:00am ASSISTED LAB WORK July 03 5:00am ASSISTED LAB WORK July 07, 2024 4: 00am LABWORK July 11, 2024 5:00 am LABWORK July 14, 2024 5:0 0am ASSISTED LAB WORK July 17, 2024 4 :00am ASSISTED LAB WORK July 24, 2024 4 :00am Chief Complaint Admit Date ASSISTED LAB WORK April 14, 2024 5:00am ASSISTED LAB WORK April 17 5:00am LABWORK April 21, 2024 5:00am ASSISTED LAB WORK April 24 4:00am LABWORK April 28, 2024 5:00am ASSISTED LAB WORK May 01 4:00am ASSISTED LAB WORK May 05 5:00am ASSISTED LAB WORK May 08, 2024 5:00am ASSISTED LAB WORK May 09, 2024 4:00am LABWORK May 12, 2024 5: 00am ASSISTED LAB WORK May 15, 2024 5:00am ASSISTED LAB WORK May 19, 2024 4:00am ASSISTED LAB WORK May 20, 2024 5:00am ASSISTED LAB WORK May 22, 2024 5:00am LABWORK May 26, 2024 5 :00am ASSISTED LAB WORK May 29, 2024 5:00am ASSISTED LAB WORK June 02, 2024 5:00am ASSISTED LAB WORK June 05, 2024 5:00am LABWORK June 09, 2024 5 :00am ASSISTED LAB WORK June 12, 2024 5:00am ASSISTED LAB WORK June 16 5:00am ASSISTED LAB WORK June 19 5:00am LABWORK June 23, 2024 5:00am ASSISTED LAB WORK June 26 5:00am ASSISTED LAB WORK June 30 5:00am ASSISTED LAB WORK July 03 5:00am ASSISTED LAB WORK July 07, 2024 4: 00am LABWORK July 11, 2024 5:00 am LABWORK July 14, 2024 5:0 0am ASSISTED LAB WORK July 17, 2024 4 :00am ASSISTED LAB WORK July 24, 2024 4 :00am LABWORK July 25, 2024 5:0 0am Chief Complaint Admit Date ASSISTED LAB WORK April 14, 2024 5:00am ASSISTED LAB WORK April 17 5:00am LABWORK April 21, 2024 5:00am ASSISTED LAB WORK April 24 4:00am LABWORK April 28, 2024 5:00am ASSISTED LAB WORK May 01 4:00am ASSISTED LAB WORK May 05 5:00am ASSISTED LAB WORK May 08, 2024 5:00am ASSISTED LAB WORK May 09, 2024 4:00am LABWORK May 12, 2024 5: 00am ASSISTED LAB WORK May 15, 2024 5:00am ASSISTED LAB WORK May 19, 2024 4:00am ASSISTED LAB WORK May 20, 2024 5:00am ASSISTED LAB WORK May 22, 2024 5:00am LABWORK May 26, 2024 5 :00am ASSISTED LAB WORK May 29, 2024 5:00am ASSISTED LAB WORK June 02, 2024 5:00am ASSISTED LAB WORK June 05, 2024 5:00am LABWORK June 09, 2024 5 :00am ASSISTED LAB WORK June 12, 2024 5:00am ASSISTED LAB WORK June 16 5:00am ASSISTED LAB WORK June 19 5:00am LABWORK June 23, 2024 5:00am ASSISTED LAB WORK June 26 5:00am ASSISTED LAB WORK June 30 5:00am ASSISTED LAB WORK July 03 5:00am ASSISTED LAB WORK July 07, 2024 4: 00am LABWORK July 11, 2024 5:00 am LABWORK July 14, 2024 5:0 0am ASSISTED LAB WORK July 17, 2024 4 :00am ASSISTED LAB WORK July 21, 2024 5 :00am ASSISTED LAB WORK July 24, 2024 4 :00am LABWORK July 25, 2024 5:0 0am ASSISTED LAB WORK July 31, 2024 4 :00am Chief Complaint Admit Date ASSISTED LAB WORK April 17 5:00am LABWORK April 21, 2024 5:00am ASSISTED LAB WORK April 24 4:00am LABWORK April 28, 2024 5:00am ASSISTED LAB WORK May 01 4:00am ASSISTED LAB WORK May 05 5:00am ASSISTED LAB WORK May 08, 2024 5:00am ASSISTED LAB WORK May 09, 2024 4:00am LABWORK May 12, 2024 5: 00am ASSISTED LAB WORK May 15, 2024 5:00am ASSISTED LAB WORK May 19, 2024 4:00am ASSISTED LAB WORK May 20, 2024 5:00am ASSISTED LAB WORK May 22, 2024 5:00am LABWORK May 26, 2024 5 :00am ASSISTED LAB WORK May 29, 2024 5:00am ASSISTED LAB WORK June 02, 2024 5:00am ASSISTED LAB WORK June 05, 2024 5:00am LABWORK June 09, 2024 5 :00am ASSISTED LAB WORK June 12, 2024 5:00am ASSISTED LAB WORK June 16 5:00am ASSISTED LAB WORK June 19 5:00am LABWORK June 23, 2024 5:00am ASSISTED LAB WORK June 26 5:00am ASSISTED LAB WORK June 30 5:00am ASSISTED LAB WORK July 03 5:00am ASSISTED LAB WORK July 07, 2024 4: 00am LABWORK July 11, 2024 5:00 am LABWORK July 14, 2024 5:0 0am ASSISTED LAB WORK July 17, 2024 4 :00am ASSISTED LAB WORK July 21, 2024 5 :00am ASSISTED LAB WORK July 24, 2024 4 :00am LABWORK July 25, 2024 5:0 0am ASSISTED LAB WORK July 28, 2024 5 :00am ASSISTED LAB WORK July 31, 2024 4 :00am Chief Complaint Admit Date ASSISTED LAB WORK April 24 4:00am LABWORK April 28, 2024 5:00am ASSISTED LAB WORK May 01 4:00am ASSISTED LAB WORK May 05 5:00am ASSISTED LAB WORK May 08, 2024 5:00am ASSISTED LAB WORK May 09, 2024 4:00am LABWORK May 12, 2024 5: 00am ASSISTED LAB WORK May 15, 2024 5:00am ASSISTED LAB WORK May 19, 2024 4:00am ASSISTED LAB WORK May 20, 2024 5:00am ASSISTED LAB WORK May 22, 2024 5:00am LABWORK May 26, 2024 5 :00am ASSISTED LAB WORK May 29, 2024 5:00am ASSISTED LAB WORK June 02, 2024 5:00am ASSISTED LAB WORK June 05, 2024 5:00am LABWORK June 09, 2024 5 :00am ASSISTED LAB WORK June 12, 2024 5:00am ASSISTED LAB WORK June 16 5:00am ASSISTED LAB WORK June 19 5:00am LABWORK June 23, 2024 5:00am ASSISTED LAB WORK June 26 5:00am ASSISTED LAB WORK June 30 5:00am ASSISTED LAB WORK July 03 5:00am ASSISTED LAB WORK July 07, 2024 4: 00am LABWORK July 11, 2024 5:00 am LABWORK July 14, 2024 5:0 0am ASSISTED LAB WORK July 17, 2024 4 :00am ASSISTED LAB WORK July 21, 2024 5 :00am ASSISTED LAB WORK July 24, 2024 4 :00am LABWORK July 25, 2024 5:0 0am ASSISTED LAB WORK July 28, 2024 5 :00am ASSISTED LAB WORK July 31, 2024 4 :00am LABWORK August 04, 2024 5:0 0am Chief Complaint Admit Date ASSISTED LAB WORK May 15, 2024 5:00am ASSISTED LAB WORK May 19, 2024 4:00am ASSISTED LAB WORK May 20, 2024 5:00am ASSISTED LAB WORK May 22, 2024 5:00am LABWORK May 26, 2024 5 :00am ASSISTED LAB WORK May 29, 2024 5:00am ASSISTED LAB WORK June 02, 2024 5:00am ASSISTED LAB WORK June 05, 2024 5:00am LABWORK June 09, 2024 5 :00am ASSISTED LAB WORK June 12, 2024 5:00am ASSISTED LAB WORK June 16 5:00am ASSISTED LAB WORK June 19 5:00am LABWORK June 23, 2024 5:00am ASSISTED LAB WORK June 26 5:00am ASSISTED LAB WORK June 30 5:00am ASSISTED LAB WORK July 03 5:00am ASSISTED LAB WORK July 07, 2024 4: 00am LABWORK July 11, 2024 5:00 am LABWORK July 14, 2024 5:0 0am ASSISTED LAB WORK July 17, 2024 4 :00am ASSISTED LAB WORK July 21, 2024 5 :00am ASSISTED LAB WORK July 24, 2024 4 :00am LABWORK July 25, 2024 5:0 0am ASSISTED LAB WORK July 28, 2024 5 :00am ASSISTED LAB WORK July 31, 2024 4 :00am LABWORK August 04, 2024 5:0 0am LABWORK August 07, 2024 5:00 am ASSISTED LAB WORK August 11, 2024 5: 00am ASSISTED LAB WORK August 14, 2024 5 :00am ASSISTED LAB WORK August 18, 2024 5 :00am Chief Complaint Admit Date ASSISTED LAB WORK May 20, 2024 5:00am ASSISTED LAB WORK May 22, 2024 5:00am LABWORK May 26, 2024 5 :00am ASSISTED LAB WORK May 29, 2024 5:00am ASSISTED LAB WORK June 02, 2024 5:00am ASSISTED LAB WORK June 05, 2024 5:00am LABWORK June 09, 2024 5 :00am ASSISTED LAB WORK June 12, 2024 5:00am ASSISTED LAB WORK June 16 5:00am ASSISTED LAB WORK June 19 5:00am LABWORK June 23, 2024 5:00am ASSISTED LAB WORK June 26 5:00am ASSISTED LAB WORK June 30 5:00am ASSISTED LAB WORK July 03 5:00am ASSISTED LAB WORK July 07, 2024 4: 00am LABWORK July 11, 2024 5:00 am LABWORK July 14, 2024 5:0 0am ASSISTED LAB WORK July 17, 2024 4 :00am ASSISTED LAB WORK July 21, 2024 5 :00am ASSISTED LAB WORK July 24, 2024 4 :00am LABWORK July 25, 2024 5:0 0am ASSISTED LAB WORK July 28, 2024 5 :00am ASSISTED LAB WORK July 31, 2024 4 :00am LABWORK August 04, 2024 5:0 0am LABWORK August 07, 2024 5:00 am ASSISTED LAB WORK August 11, 2024 5: 00am ASSISTED LAB WORK August 14, 2024 5 :00am ASSISTED LAB WORK August 18, 2024 5 :00am LABWORK August 28, 2024 5:0 0am Chief Complaint Admit Date ASSISTED LAB WORK May 22, 2024 5:00am LABWORK May 26, 2024 5 :00am ASSISTED LAB WORK May 29, 2024 5:00am ASSISTED LAB WORK June 02, 2024 5:00am ASSISTED LAB WORK June 05, 2024 5:00am LABWORK June 09, 2024 5 :00am ASSISTED LAB WORK June 12, 2024 5:00am ASSISTED LAB WORK June 16 5:00am ASSISTED LAB WORK June 19 5:00am LABWORK June 23, 2024 5:00am ASSISTED LAB WORK June 26 5:00am ASSISTED LAB WORK June 30 5:00am ASSISTED LAB WORK July 03 5:00am ASSISTED LAB WORK July 07, 2024 4: 00am LABWORK July 11, 2024 5:00 am LABWORK July 14, 2024 5:0 0am ASSISTED LAB WORK July 17, 2024 4 :00am ASSISTED LAB WORK July 21, 2024 5 :00am ASSISTED LAB WORK July 24, 2024 4 :00am LABWORK July 25, 2024 5:0 0am ASSISTED LAB WORK July 28, 2024 5 :00am ASSISTED LAB WORK July 31, 2024 4 :00am LABWORK August 04, 2024 5:0 0am LABWORK August 07, 2024 5:00 am ASSISTED LAB WORK August 11, 2024 5: 00am ASSISTED LAB WORK August 14, 2024 5 :00am ASSISTED LAB WORK August 18, 2024 5 :00am ASSISTED LAB WORK August 21, 2024 5 :00am LABWORK August 28, 2024 5:0 0am LABWORK September 01, 2024 5:0 0am Chief Complaint Admit Date ASSISTED LAB WORK June 05, 2024 5:00am LABWORK June 09, 2024 5 :00am ASSISTED LAB WORK June 12, 2024 5:00am ASSISTED LAB WORK June 16 5:00am ASSISTED LAB WORK June 19 5:00am LABWORK June 23, 2024 5:00am ASSISTED LAB WORK June 26 5:00am ASSISTED LAB WORK June 30 5:00am ASSISTED LAB WORK July 03 5:00am ASSISTED LAB WORK July 07, 2024 4: 00am LABWORK July 11, 2024 5:00 am LABWORK July 14, 2024 5:0 0am ASSISTED LAB WORK July 17, 2024 4 :00am ASSISTED LAB WORK July 21, 2024 5 :00am ASSISTED LAB WORK July 24, 2024 4 :00am LABWORK July 25, 2024 5:0 0am ASSISTED LAB WORK July 28, 2024 5 :00am ASSISTED LAB WORK July 31, 2024 4 :00am LABWORK August 04, 2024 5:0 0am LABWORK August 07, 2024 5:00 am ASSISTED LAB WORK August 11, 2024 5: 00am ASSISTED LAB WORK August 14, 2024 5 :00am ASSISTED LAB WORK August 18, 2024 5 :00am ASSISTED LAB WORK August 21, 2024 5 :00am ASSISTED LAB WORK August 25, 2024 4 :00am LABWORK August 28, 2024 5:0 0am LABWORK September 01, 2024 5:0 0am LABWORK September 04, 2024 5:00am Chief Complaint Admit Date ASSISTED LAB WORK June 05, 2024 5:00am LABWORK June 09, 2024 5 :00am ASSISTED LAB WORK June 12, 2024 5:00am ASSISTED LAB WORK June 16 5:00am ASSISTED LAB WORK June 19 5:00am LABWORK June 23, 2024 5:00am ASSISTED LAB WORK June 26 5:00am ASSISTED LAB WORK June 30 5:00am ASSISTED LAB WORK July 03 5:00am ASSISTED LAB WORK July 07, 2024 4: 00am LABWORK July 11, 2024 5:00 am LABWORK July 14, 2024 5:0 0am ASSISTED LAB WORK July 17, 2024 4 :00am ASSISTED LAB WORK July 21, 2024 5 :00am ASSISTED LAB WORK July 24, 2024 4 :00am LABWORK July 25, 2024 5:0 0am ASSISTED LAB WORK July 28, 2024 5 :00am ASSISTED LAB WORK July 31, 2024 4 :00am LABWORK August 04, 2024 5:0 0am LABWORK August 07, 2024 5:00 am ASSISTED LAB WORK August 11, 2024 5: 00am ASSISTED LAB WORK August 14, 2024 5 :00am ASSISTED LAB WORK August 18, 2024 5 :00am ASSISTED LAB WORK August 21, 2024 5 :00am ASSISTED LAB WORK August 25, 2024 4 :00am LABWORK August 28, 2024 5:0 0am LABWORK September 01, 2024 5:0 0am LABWORK September 04, 2024 5:00am LABWORK September 15, 2024 5:00a m Chief Complaint Admit Date ASSISTED LAB WORK June 19 5:00am LABWORK June 23, 2024 5:00am ASSISTED LAB WORK June 26 5:00am ASSISTED LAB WORK June 30 5:00am ASSISTED LAB WORK July 03 5:00am ASSISTED LAB WORK July 07, 2024 4: 00am LABWORK July 11, 2024 5:00 am LABWORK July 14, 2024 5:0 0am ASSISTED LAB WORK July 17, 2024 4 :00am ASSISTED LAB WORK July 21, 2024 5 :00am ASSISTED LAB WORK July 24, 2024 4 :00am LABWORK July 25, 2024 5:0 0am ASSISTED LAB WORK July 28, 2024 5 :00am ASSISTED LAB WORK July 31, 2024 4 :00am LABWORK August 04, 2024 5:0 0am LABWORK August 07, 2024 5:00 am ASSISTED LAB WORK August 11, 2024 5: 00am ASSISTED LAB WORK August 14, 2024 5 :00am ASSISTED LAB WORK August 18, 2024 5 :00am ASSISTED LAB WORK August 21, 2024 5 :00am ASSISTED LAB WORK August 25, 2024 4 :00am LABWORK August 28, 2024 5:0 0am LABWORK September 01, 2024 5:0 0am LABWORK September 04, 2024 5:00am ASSISTED LAB WORK September 08, 2024 4:00 am ASSISTED LAB WORK September 11, 2024 5:00 am LABWORK September 15, 2024 5:00a m ASSISTED LAB WORK September 25, 2024 5:0 0am ASSISTED LAB WORK September 30, 2024 4:0 0am Chief Complaint Admit Date ASSISTED LAB WORK June 12, 2024 5:00am ASSISTED LAB WORK June 16 5:00am ASSISTED LAB WORK June 19 5:00am LABWORK June 23, 2024 5:00am ASSISTED LAB WORK June 26 5:00am ASSISTED LAB WORK June 30 5:00am ASSISTED LAB WORK July 03 5:00am ASSISTED LAB WORK July 07, 2024 4: 00am LABWORK July 11, 2024 5:00 am LABWORK July 14, 2024 5:0 0am ASSISTED LAB WORK July 17, 2024 4 :00am ASSISTED LAB WORK July 21, 2024 5 :00am ASSISTED LAB WORK July 24, 2024 4 :00am LABWORK July 25, 2024 5:0 0am ASSISTED LAB WORK July 28, 2024 5 :00am ASSISTED LAB WORK July 31, 2024 4 :00am LABWORK August 04, 2024 5:0 0am LABWORK August 07, 2024 5:00 am ASSISTED LAB WORK August 11, 2024 5: 00am ASSISTED LAB WORK August 14, 2024 5 :00am ASSISTED LAB WORK August 18, 2024 5 :00am ASSISTED LAB WORK August 21, 2024 5 :00am ASSISTED LAB WORK August 25, 2024 4 :00am LABWORK August 28, 2024 5:0 0am LABWORK September 01, 2024 5:0 0am LABWORK September 04, 2024 5:00am ASSISTED LAB WORK September 08, 2024 4:00 am LABWORK September 15, 2024 5:00a m Chief Complaint Admit Date ASSISTED LAB WORK July 07, 2024 4: 00am LABWORK July 11, 2024 5:00 am LABWORK July 14, 2024 5:0 0am ASSISTED LAB WORK July 17, 2024 4 :00am ASSISTED LAB WORK July 21, 2024 5 :00am ASSISTED LAB WORK July 24, 2024 4 :00am LABWORK July 25, 2024 5:0 0am ASSISTED LAB WORK July 28, 2024 5 :00am ASSISTED LAB WORK July 31, 2024 4 :00am LABWORK August 04, 2024 5:0 0am LABWORK August 07, 2024 5:00 am ASSISTED LAB WORK August 11, 2024 5: 00am ASSISTED LAB WORK August 14, 2024 5 :00am ASSISTED LAB WORK August 18, 2024 5 :00am ASSISTED LAB WORK August 21, 2024 5 :00am ASSISTED LAB WORK August 25, 2024 4 :00am LABWORK August 28, 2024 5:0 0am LABWORK September 01, 2024 5:0 0am LABWORK September 04, 2024 5:00am ASSISTED LAB WORK September 08, 2024 4:00 am ASSISTED LAB WORK September 11, 2024 5:00 am LABWORK September 15, 2024 5:00a m ASSISTED LAB WORK September 18, 2024 5:0 0am ASSISTED LAB WORK September 22, 2024 5:0 0am ASSISTED LAB WORK September 25, 2024 5:0 0am ASSISTED LAB WORK September 30, 2024 4:0 0am ASSISTED LAB WORK October 02, 2024 5:0 0am ASSISTED LAB WORK October 09, 2024 5:0 0am Reason for Referral Specialty Diagnoses / Procedures Referred By Contac t Referred To Contact Urology Diagnoses Other fatigue Lanette Munguia DO [address] [place] [address] [facility] [address] [place] [id number] Referral ID Status Reason Start Date Expiration Date V isits Requested Visits Authorized [id number] Open Specialty Services Required 11/01/2021 11/01/2022 1 1 Scheduling Instructions [facility] - [address] , [address] [place] [id number] Specialty Diagnoses / Procedures Referred By Contac t Referred To Contact IP Unit Diagnoses Heel ulceration, left, with unspecified severity (HCC) Henry Hidalgo PA [address] [place] [address] [facility] [address] [place] [id number] Referral ID Status Reason Start Date Expiration Date V isits Requested Visits Authorized [id number] Open Specialty Services Required 12/22/2021 12/22/2022 1 1 Scheduling Instructions [facility] - [facility] [address] [place] [address] Comments Please use the parking lot located on [address] or [address]. There are handicap parking spots located in a small lot beside the wound care entrance off of [address]. Please be advised there is a small incline from those handicap spots to our main door. Bring photo ID and insurance card to photocopy. Wear loose fitting clothing (to easily access wound). Bring list of medications (or can be sent by office). Check in at Registration for your first visit. Please call us directly with any questions [phone]. We look forward to helping you heal. Specialty Diagnoses / Procedures Referred By Aki kumari Referred To Contact Radiology Diagnoses Left flank pain Calculus of ureter Procedures CT abdomen pelvis wo IV contrast Rebecca Buck MD [address] [place] [address] Referral ID Status Reason Start Date Expiration Date V isits Requested Visits Authorized [id number] Pending Review 08/13/2023 08/12/2024 1 1 Referral ID Status Reason Start Date Expiration Date Visits Re quested Visits Authorized [id number] Closed 08/17/2023 09/16/2023 1 1 Additional Source Comments Source Comments (unrecognize d section and content) In the event this informatio n is protected by the Federal Confidentiality of Alcohol and Drug Abuse Patient Records regulations: The Federal rules restrict any use of the information to criminally investigate or prosecute any alcohol or drug abuse patient[facility] the event this information is protected by the Federal Confidentiality of Alcohol and Drug Abuse Patient Records regulations: The Federal rules restrict any use of the information to criminally investigate or prosecute any alcohol or drug abuse patient[facility] (unrecognized sect ion and content) No Status Records FoundNo Status Records FoundNo Status Records FoundNo Status Records FoundNo Status Records FoundNo Status Records FoundNo Status Records FoundNo Status Records FoundNo Status Records FoundNo Status Records Found INFORMATION SOURCE (unrecogn ized section and content) DATE CREATED AUTHOR 05/20/2021 [facility] DATE CREATED AUTHOR AUTHOR'S ORGANIZ ATION 06/07/2021 [facility] DATE CREATED AUTHOR AUTHOR'S ORGANIZ ATION 08/02/2021 [facility] DATE CREATED AUTHOR AUTHOR'S ORGANIZ ATION 12/09/2021 [facility] DATE CREATED AUTHOR AUTHOR'S ORGANIZ ATION 12/29/2021 [facility] DATE CREATED AUTHOR AUTHOR'S ORGANIZ ATION 02/04/2022 [facility] DATE CREATED AUTHOR AUTHOR'S ORGANIZ ATION 03/03/2022 [facility] DATE CREATED AUTHOR AUTHOR'S ORGANIZ ATION 09/15/2023 [facility] DATE CREATED AUTHOR AUTHOR'S ORGANIZ ATION 12/01/2024 [facility] Reason for Visit (unrecogniz ed section and content) Reason Comments Missed Appointment Reason Comments Leg Swelling Blood clots Reason Comments Altered Mental Status Pt presents to ED via [facility] for complaint listed. Pt is from [facility]. Pt's LKW was 1000 hours today. Per EMS, pt had a - [place]. Pt denies CP, SOB, and N/V. Pt seems slow to respond, slightly confused at this time. Reason Comments [facility]elitis [facility] did xrays on left lower leg and and have concerns for possible osteomyelitis A&Ox2 to self and place, stated year 2022 pres[facility] Reason Comments Fall Patient had unwitnes sed fall at [facility] landed on butt. Is on [...] Buck MD [address] [place] [address] Referral ID Status Reason Start Date Expiration Date Visits Re quested Visits Authorized [id number] Closed 08/17/2023 09/16/2023 1 1 Reason Comments [...] 07, 2024 End: July 07, 2024 Karon NVOAK MD Referring Provider Active Start: July 07, [...] Status Dates Carlos NOVAK Attending Provider Active [facility] Relationship Specialty Start Date End Date Mateus Burris [address] [place] [address] PCP - General Family Practice 11/12/19 [facility] Relationship Specialty [place] [address] [place] [address] PCP - General Family Medicine 09/09/20 [facility] Relationship Specialty [place] [address] [place] [address] PCP - General Family Medicine 09/09/20 [facility] Relationship Specialty Start [place] [address] [place] [address] PCP - General Family Medicine 09/09/20 [facility] Relationship Specialty Start Date End Date Carlos Cavazos MD [address] [facility] [address] [place] [address] PCP - General Internal Medicine 02/20/22 Team [...] Status: Active Member Role Status Dates Cliff Bruner SCARLET Attending Provider Active Team Status: Inactive Member Role Status Dates Cliff NOVAK Attending Provider Active Team Status: Inactive Member Role Status Dates Carlos NOVAK Attending Provider Active Dr. Monika Staley MD Primary Care Provider Active [facility] Relationship Specialty Start Date End Date Carlos Cavazos [address] [place] [phone] PCP - General 12/21/21 Rebecca Buck MD [address] [address] Surgeon Urology 06/25/23 Team Status: Inactive Member Role Status Dates Carlos NOVAK Attending Provider, Referring Provi lupillo Active Dr. Monika Staley MD Primary Care Provider Active Team Status: Inactive Member Role Status Dates Dr. Monika Staley MD Primary Care Provider Active Carlos ONVAK Attending Provider Active Team Status: Active Member Role Status Dates Dr. Monika Staley MD Primary Care Provider Active Carlos NOVAK Attending Provider Active Team Status: Inactive Member Role Status Dates Dr. Monika Staley MD Primary Care Provider Active Carlos NOVAK Attending Provider, Referring Provi lupillo Active [facility] Relationship Specialty Start Date End Date Carlos Cavazos [address] [place] [phone] PCP - General 12/21/21 Rebecca Buck MD [address] [address] Surgeon Urology 06/25/23 [facility] Relationship Specialty Start Date End Date Carlos Cavazos [address] [place] [phone] PCP - General 12/21/21 Rebecca Buck MD [address] [address] Surgeon Urology 06/25/23 [facility] Relationship Specialty Start Date End Date Carlos Cavazos [address] [place] [phone] PCP - General 12/21/21 Rebecca Buck MD [address] [address] Surgeon Urology 06/25/23 [facility] Relationship Specialty Start Date End Date Carlos Cavaozs [address] [place] [phone] PCP - General 12/21/21 Rebecca Buck MD [address] [address] Surgeon Urology 06/25/23 [facility] Relationship Specialty Start Date End Date Carlos Cavazos [address] [place] [phone] PCP - General 12/21/21 Rebecca Buck MD [address] [address] Surgeon Urology 06/25/23 [facility] Relationship Specialty Start Date End Date Carlos Cavazos [address] [place] [phone] PCP - General 12/21/21 Rebecca Buck MD [address] [place] [address] Surgeon Urology 06/25/23 Team Status: Inactive Member Role Status Dates Dr. Monika Staley MD Primary Care Provider Active Start: March 13, 2024 End: March 13, 2024 [facility] Attending Provider Active Start: March 13, 2024 [...] March 17, 2024 End: March 17, 2024 [facility] Attending Provider Active Start: March 17, 2024 End: March 17, 2024 Team Status: Inactive Member Role Status Dates Dr. Monika Staley MD Primary Care Provider Active Start: March 18, 2024 End: March 18, 2024 [facility] Attending Provider Active Start: March 18, 2024 [...] March 20, 2024 End: March 20, 2024 [facility] Attending Provider Active Start: March 20, 2024 [...] March 27, 2024 End: March 27, 2024 [facility] Attending Provider Active Start: March 27, 2024 [...] Active Member Role Status Dates Dr. Monika Satley MD Primary Care Provider Active Start: June 12, 2024 Dr. Kvng NOVAK MD Attending Provider Active Start: June 12, 2024 Team Status: Active Member Role Status Dates Dr. Monika Staley MD Primary Care Provider Active Start: June 16, 2024 Dr. Kvng NVOAK MD Attending Provider Active Start: June 16, [...] Care Provider Active Start: July 07, 2024 [facility] Attending Provider Active Start: July 07, 2024 [...] Hoff RN)1355 (Given - Provider: Rosanne Hoff RN)192 (Given - Provider: Lisa Ashby RN) 1024 (Given - Provider: Fabi Subramanian RN)1547 (Given - Provider: Cliff Isidro RN)2100 (Due) bumetanide (BUMEX) tablet 2 mg 2 mg, Oral, DAILY, First dose on Sun10/21/21 at 0900, Until Discontinued 910 (Given - Provider: Rosanne Hoff RN) 08 (Given - Provider: Rosanne Hoff RN) 1025 (Given - Provider: Fabi Subramanian RN) enoxaparin [...] RN)2103 (Stopped - Provider: Katlin Julio RN) 08 (New Bag - Provider: Rosanne Hoff RN)0953 [...] Ashby, AYUSH) 1027 (Given - Provider: Fabi Subramanian RN)2100 [...] mg, Oral, ONCE Warfarin, 1 dose, On [facility] 10/29/21 at 1800, Indication of Use: Treatment-DVT/PE, [...] BE BASED ON THE PRIMARY CLINICAL RECORDS. [facility] [employer] [facility]. provides no warranty or guarantee of the accuracy or completeness of information in this document.
[2024-12-02 08:35] LABS: Prothrombin Time (Protime)PT. 27.3 SECONDS (11.7-14.9)
== END ==
LOC: OLS.SANC 04:00
PROVIDERS: PCP General Practice
DX: Z79.01 Long term (current) use of 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 (principal)
CPT/HCPCS: 36415; 85610

== ENCOUNTER → 2024-12-04 | Outpatient (REF) | payer MEDICARE, MEDICAID, SELFPAY ==
[2024-12-04 09:09] LABS: Prothrombin Time (Protime)PT. 25.9 SECONDS (11.7-14.9)
== END ==
LOC: OLS.SANC 05:00
PROVIDERS: PCP General Practice
DX: Z79.01 Long term (current) use of 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 (principal)
CPT/HCPCS: 36415; 85610

== ENCOUNTER → 2024-12-08 | Outpatient (REF) | payer MEDICARE, MEDICAID, SELFPAY ==
[2024-12-08 09:32] LABS: Prothrombin Time (Protime)PT. 25.0 SECONDS (11.7-14.9)
== END ==
LOC: OLS.SANC 05:00
PROVIDERS: PCP General Practice
DX: Z79.01 Long term (current) use of 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 (principal)
CPT/HCPCS: 36415; 85610

== ENCOUNTER → 2024-12-11 | Outpatient (REF) | payer MEDICARE, MEDICAID, SELFPAY ==
[2024-12-11 09:32] LABS: Prothrombin Time (Protime)PT. 24.7 SECONDS (11.7-14.9)
== END ==
LOC: OLS.SANC 06:00
PROVIDERS: PCP General Practice; Visit Provider Internal Medicine
DX: Z79.01 Long term (current) use of 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 (principal)
CPT/HCPCS: 36415; 85610

== ENCOUNTER → 2024-12-15 04:00 | Outpatient (REF) | payer MEDICARE, MEDICAID, SELFPAY ==
--- OUTSIDE RECORDS SUMMARY | 2024-12-15 04:30 | XMS RPT_ITS | CCD ---
Author Organization [facility] Care Team Providers Care Customer Expert Name Role Phone Mateus Burris Primary Care [...] Provider Monika Staley MD Primary Care Provider [phone] Monika Staley MD Primary Care Provider Carlos [...] Attending Unavailable Kenny, Carlos Primary Care Provider Cielo VALLADARES, Rebecca L Unavailable Cielo VALLADARES, Rebecca L Unavailable [phone] REBECCA BUCK Attending Unavailable REBECCA BUCK Referring Unavailable CARLOS CAVAZOS Primary Care Unavailable REBECCA BUCK Attending Unavailable KENNY, CARLOS Primary Care Unavailable REBECCA BUCK Attending Unavailable KENNY, CARLOS Primary Care Unavailable Luís VALLADARES, Dr. Monika Horner Primary Care Provider [facility] Attending Provider [phone] Carlos Nelson Attending Provider Jonh Pascual MD, [...] Jany Crisostomo MD, Dr. Calderon Referring Provider Jeanineva Carlos Barnes Attending Provider Jonh [...] Care Provider Carlos Nelson Attending Provider Unavailab Kvng Garcia Attending Unavailable Luís, Shiela Primary Care Unavailable [facility] [place] Attending Jeaninevai camelia Luís, Shiela Primary Care Unavailable [facility] [place] Attending Unavai camelia Luís, Shiela Primary Care Unavailable Mukkamamarlenea Karon NOVAK Attending Unavail able Luís, Shiela Primary Care Unavailable KatsaCarlos Villavicencio Attending Unavailable Luís, Shiela Primary Care Unavailable KatsaCarlos Villavicencio Attending Unavailable Luís, Shiela Primary Care Unavailable Mukkamalla Karon NOVAK Attending Unavail able Luís, Shiela Primary Care Unavailable Mukkamalla Karon NOVAK Attending Unavail able Luís, Shiela Primary Care Unavailable [facility] [place] Attending Unavai labish Luís, Shiela Primary Care Unavailable KatsaCarlos Villavicencio Attending Unavailable Luís, Shiela Primary Care Unavailable Kvng Sen Attending Unavailable Luís, Shiela Primary Care Unavailable Katsaros OLS, Peter Attending Unavailable Luís, Shiela Primary Care Unavailable Crisostomo OLS, Vicentebaljeet Attending Unavailable Luís, Shiela Primary Care Unavailable Crisostomo OLS, Vicentebaljeet Attending Unavailable Luís, Shiela Primary Care Unavailable Crisostomo OLS, Babbaljeet Attending Unavailable Luís, Shiela Primary Care Unavailable Katsaros OLS, Peter Attending Unavailable Luís, Shiela Primary Care Unavailable Crisostomo OLS, Babbaljeet Referring Unavailable Crisostomo OLS, Vicentebaljeet Attending Unavailable Luís, Shiela Primary Care Unavailable [...] Unavailable Mukkamalla OLS, Mahaveer Attending Unavail able Líus, Shiela Primary Care Unavailable Mukkamalla OLS, Mahaveer [...] Luís, Shiela Primary [facility]available [facility] [place] Attending Unavai lable Luís, Shiela Primary Care Unavailable Katsaros OLS, Peter Attending Unavailable Luís, Shiela Primary Care Unavailable [facility] [place] Attending Unavai lable Luís, Shiela Primary Care Unavailable [facility] [place] Attending Unavai lable Luís, Shiela Primary Care Unavailable [facility] [place] Attending Unavai lable Luís, Shiela Primary Care Unavailable [facility] [place] Attending Unavai lable Luís, Shiela Primary Care Unavailable [facility] [place] Attending Unavai lable Luís, Shiela Primary Care Unavailable [facility] [place] Attending Unavai lable Luís, Shiela Primary Care Unavailable Katsaros Carlos NOVAK Attending Unavailable Luís, Shiela Primary Care Unavailable [facility] [place] Attending Unavai lable Luís, Shiela Primary Care Unavailable [facility] [place] Attending Unavai lable Luís, Shiela Primary Care Unavailable Crisostomo OLS, Babbaljeet Referring Unavailable Crisostomo OLS, Babbaljeet Attending Unavailable Luís, Shiela Primary Care Unavailable [facility] [place] Attending Unavai lable Luís, Shiela Primary Care Unavailable Karon Shah [...] Referring Unavailable Luís, Shiela Primary Care Unavailable Carlos Nelson Attending Unavailable Luís, Shiela Primary Care Unavailable Crisostomo OLS, Babbaljeet Attending Unavailable Luís, Shiela Primary Care Unavailable Crisostomo OLS, Babbaljeet Attending Unavailable Crisostomo OLS, Babbaljeet Referring Unavailable Luís, Shiela Primary Care Unavailable Crisostomo OLS, Babbaljeet Attending Unavailable Luís, Shiela Primary Care Unavailable Crisostomo OLS, Babbaljeet Attending Unavailable Luís, Shiela Primary Care Unavailable [facility] [place] Attending Unavai lable Luís, Shiela Primary Care Unavailable KatCarlos Flood [...] OLS, Melindaer Referring Unavail able Mukkamalla OLS, Melindaer Attending Unavail able Luís, Shiela Primary Care Unavailable Crisostomo OLS, Kvng Attending Unavailable Luís, Shiela Primary Care Unavailable Katsaros OLS, Peter Attending Unavailable Luís, Shiela Primary Care Unavailable [facility] [place] Attending Tricia bustamantele Luís, Shiela Primary Care [...] OLS, Karon Referring Unavail able Mukkamalla OLS, Melindaer Attending Unavail able Luís, Shiela Primary Care Unavailable Katsaros OLS, Carlos Attending Unavailable Luís, Shiela Primary Care Unavailable [place] OLS, Karon Attending Unavail able Luís, Shiela Primary Care Unavailable [place] OLS, Karon Referring Unavail able Mukkamalla OLS, Melindaer Attending Unavail able Luís, Shiela Primary Care Unavailable [facility] [place] Attending Tricia denise Luís, Shiela Primary Care Unavailable Crisostomo OLSKvng Attending Unavailable Luís, Shiela Primary Care Unavailable Allergies Allergy Classification Reported Allergen(s) Allergy Type Date of Onset Reaction(s) Facility (13 sources) Morphine Drug Allergy 5 [facility] Work Phone: (15 sources) Alcohol Propensity to adverse reactions to drug 3 Rash, Hives, Other: See Comments, Other [facility] Work Phone: (1 source) Latex Drug Allergy 0 Rash [facility] (8 sources) Cortisone Drug Allergy 2 [facility] (7 sources) Latex Allergy to substance 0 Rash [facility] Medications Current Medications Medication Drug Class(es) Dates Sig (Normalized) Sig (Original) Acetaminophen (10 sources) Start: 10-21-2021 acetaminophen (TYLENOL) tablet 650 mg Start: 09-14-2021 acetaminophen (TYLENOL) 325 MG tablet 650 mg every 6 hours as needed 0 09/14/2021 Active take 2 tablets by [facility] every eight hours acetaminophen (TYLENOL) [...] Start: 12-03-2018 take 1 tablet by joan three times daily as needed for muscle spasms baclofen (LIORESAL) 10 MG tablet TAKE 1 TABLET BY MOUTH 3 TIMES DAILY NEEDED FOR MUSCLE SPASMS 270 tablet 1 12/03/2018 Active take 1 tablet by joan once daily at bedtime baclofen 10 mg [...] Start: 11-01-2021 take 1 capsule by mo [facility] once daily tamsulosin (FLOMAX) 0.4 MG capsule [...] Antacid TABS Quantity: 0 Refills: 0 Ordered: 2-Edgar-2020 DO Active apixaban 5 mg oral tablet [...] on above: Take 1 capsule by mo [facility] three times daily. Complete Multi-Vitamin CHEW (4 [...] Active docusate sodium 50 mg / sennosides, custodial 8.6 mg oral tablet (1 source) Start: [...] Units subcutaneously with meals and at bedtime. Slovenian Panax Ginseng 100 MG CAPS (8 sources) Slovenian Panax Ginseng 100 MG CAPS Quantity: 0 Refills: 0 Ordered: 06-Nov-2019 DO Active Slovenian Panax Ginseng 100 MG Oral Capsule (4 sources) Slovenian Panax Ginseng 100 MG Oral Capsule Refills: 0 Active Slovenian Panax Gin mayuri 100 MG Oral Capsule Refills: 0 DO Active [place] Panax Ginseng 100 MG Oral Capsule (2 sources) Slovenian Panax Gin mayuri 100 MG Oral Capsule [...] once daily. Pentoxifylline (1 source) Blood Viscosity Director Of [employer]quisitions PENTOXIFYLLINE ORAL Take by mouth. 0 Active Comment on above: Take by mouth. petrolatum 0.41 mg/mg topical ointment (1 source) Start : 08-20 white petrolatum (AQUAPHOR) 41 % topical ointment Apply to affected area once daily. 0 08/20/2021 Active Comment on above: Apply to affected ar ea once daily. 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] Episodic Other circulatory [...] and (suspected) exposure to COVID-19] Onset: 10-21-2021 Past or Other Problems Problem Classification Problem [...] 02-16-2022 Episodic Other aftercare (2 sources) 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 [place], [place], [id number] PT Coag (PPP) [Time] 24.7 s High 11.7-14.9 [facility] Comment on above: Order Comment: 411-1 Performed By: #### L 300.3900 ####[facility] [address] [place], [place], [phone] Prothrombin Time w/INRon INR Coag (PPP) [Relative time] 2.2 {INR} Normal [facility] Comment on above: Order Comment: 411.1 Performed By: #### L 300.3900 ####[facility] [address] [place], [address] PT Coag (PPP) [Time] 25.0 s High 11.7-14.9 [facility] Comment on above: Order Comment: 411.1 Performed By: #### L 300.3900 ####[facility] [address] [place], [address] Prothrombin Time w/INRon INR Coag (PPP) [Relative time] 2.3 {INR} Normal [facility] Comment on above: Order Comment: 411.1 Performed By: #### L 300.3900 ####[facility] [address] [place], [address] PT Coag (PPP) [Time] 25.9 s High 11.7-14.9 [facility] Comment on above: Order Comment: 411.1 Performed By: #### L 300.3900 ####[facility] [address] [place], [address] Prothrombin Time w/INRon INR Coag (PPP) [Relative time] 2.5 {INR} Normal [facility] Comment on above: Order Comment: 411.1 Performed By: #### L 300.3900 ####[facility] [address] [place], [address] PT Coag (PPP) [Time] 27.3 s High 11.7-14.9 [facility] Comment on above: Order Comment: 411.1 Performed By: #### L 300.3900 ####[facility] [address] [place], [address] Prothrombin Time w/INRon INR Coag (PPP) [Relative time] 2.3 {INR} Normal [facility] Comment on above: Order Comment: 411-1 Performed By: #### L 300.3900 ####[facility] [address] [place], [address] PT Coag (PPP) [Time] 26.0 s High 11.7-14.9 [facility] Comment on above: Order Comment: 411-1 Performed By: #### L 300.3900 ####[facility] [address] [place], [address] Prothrombin Time w/INRon -2024 INR Coag (PPP) [Relative time] 3.1 {INR} Normal [facility] Comment on above: Order Comment: 411-1 Performed By: #### L 300.3900 ####[facility] [address] [place], [address] PT Coag (PPP) [Time] 32.8 s High 11.7-14.9 [facility] Comment on above: Order Comment: 411-1 Performed By: #### L 300.3900 ####[facility] [address] [place], [address] Prothrombin Time w/INRon INR Coag (PPP) [Relative time] 3.3 {INR} Normal [facility] Comment on above: Order Comment: 411.1 Performed By: #### L 300.3900 ####[facility] [address] [place], [address] PT Coag (PPP) [Time] 34.3 s High 11.7-14.9 [facility] Comment on above: Order Comment: 411.1 Performed By: #### L 300.3900 ####[facility] [address] [place], [address] Prothrombin Time w/INRon INR Coag (PPP) [Relative time] 2.8 {INR} Normal [facility] Comment on above: Order Comment: 411.2 Performed By: #### L 300.3900 ####[facility] [address] [place], [address] PT Coag (PPP) [Time] 30.0 s High 11.7-14.9 [facility] Comment on above: Order Comment: 411.2 Performed By: #### L 300.3900 ####[facility] [address] [place], [address] Prothrombin Time w/INRon INR Coag (PPP) [Relative time] 3.0 {INR} Normal [facility] Comment on above: Order Comment: 411.2 Performed By: #### L 300.3900 ####[facility] [address] [place], [address] PT Coag (PPP) [Time] 32.0 s High 11.7-14.9 [facility] Comment on above: Order Comment: 411.2 Performed By: #### L 300.3900 ####[facility] [address] [place], [address] Prothrombin Time w/INRon INR Coag (PPP) [Relative time] 2.9 {INR} Normal [facility] Comment on above: Order Comment: 411.2 Performed By: #### L 300.3900 ####[facility] [address] [place], [address] PT Coag (PPP) [Time] 30.7 s High 11.7-14.9 [facility] Comment on above: Order Comment: 411.2 Performed By: #### L 300.3900 ####[facility] [address] [place], [address] Prothrombin Time w/INRon INR Coag (PPP) [Relative time] 2.2 {INR} Normal [facility] Comment on above: Order Comment: 411.2 Performed By: #### L 300.3900 ####[facility] [address] [place], [address] PT Coag (PPP) [Time] 24.7 s High 11.7-14.9 [facility] Comment on above: Order Comment: 411.2 Performed By: #### L 300.3900 ####[facility] [address] [place], [address] Prothrombin Time w/INRon INR Coag (PPP) [Relative time] 2.6 {INR} Normal [facility] Comment on above: Order Comment: 411.2 Performed By: #### L 300.3900 ####[facility] [address] [place], [address] PT Coag (PPP) [Time] 28.7 s High 11.7-14.9 [facility] Comment on above: Order Comment: 411.2 Performed By: #### L 300.3900 ####[facility] [address] [place], [address] Prothrombin Time w/INRon INR Coag (PPP) [Relative time] 3.1 {INR} Normal [facility] Comment on above: Order Comment: 411.2 Performed By: #### L 300.3900 ####[facility] [address] [place], [address] PT Coag (PPP) [Time] 33.0 s High 11.7-14.9 [facility] Comment on above: Order Comment: 411.2 Performed By: #### L 300.3900 ####[facility] [address] [place], [address] Prothrombin Time w/INRon INR Coag (PPP) [Relative time] 3.0 {INR} Normal [facility] Comment on above: Order Comment: 411-2 Performed By: #### L 300.3900 ####[facility] [address] [place], [address] PT Coag (PPP) [Time] 31.4 s High 11.7-14.9 [facility] Comment on above: Order Comment: 411-2 Performed By: #### L 300.3900 ####[facility] [address] [place], [address] International normalized rat io (INR) calculationOrdered By: Karon Corrales on 10-30-2024 INR Coag (Bld) [Relative time] 2.4 {INR} [facility] Prothrombin Time w/INRon INR Coag (PPP) [Relative time] 2.4 {INR} Normal [facility] Comment on above: Performed By: #### L 300.3900 ####[facility] [address] [place], [address] PT Coag (PPP) [Time] 26.3 s High 11.7-14.9 [facility] Comment on above: Performed By: #### L 300.3900 ####[facility] [address] [place], [address] Prothrombin timeOrdered By: Karon Corrales on 10-30-2024 PT Coag (PPP) [Time] 26.3 s High 11.7-14.9 [facility] International normalized rat io (INR) calculationOrdered By: Karon Corrales on 10-27-2024 INR Coag (Bld) [Relative time] 2.2 {INR} [facility] Prothrombin Time w/INRon INR Coag (PPP) [Relative time] 2.2 {INR} Normal [facility] Comment on above: Order Comment: 411.2 Performed By: #### L 300.3900 ####[facility] [address] [place], [address] Prothrombin timeOrdered By: Karon Corrales on 10-27-2024 PT Coag (PPP) [Time] 24.5 s High 11.7-14.9 [facility] Comment on above: Order Comment: 411.2 Performed By: #### L 300.3900 ####[facility] [address] [place], [place], [id number] International normalized rat io (INR) calculationOrdered By: Karon Corrales on 10-23-2024 INR Coag (Bld) [Relative time] 2.5 {INR} [facility] Prothrombin Time w/INRon INR Coag (PPP) [Relative time] 2.5 {INR} Normal [facility] Comment on above: Order Comment: 411.2 Performed By: #### L 300.3900 ####[facility] [address] [place], [place], [phone] PT Coag (PPP) [Time] 27.9 s High 11.7-14.9 [facility] Comment on above: Order Comment: 411.2 Performed By: #### L 300.3900 ####[facility] [address] [place], [place], [phone] Prothrombin timeOrdered By: Karon Corrales on 10-23-2024 PT Coag (PPP) [Time] 27.9 s High 11.7-14.9 [facility] International normalized rat io (INR) calculationOrdered By: Karon Corrales on 10-20-2024 INR Coag (Bld) [Relative time] 3.1 {INR} [facility] Prothrombin Time w/INRon INR Coag (PPP) [Relative time] 3.1 {INR} Normal [facility] Comment on above: Order Comment: 411.2 Performed By: #### L 300.3900 ####[facility] [address] [place], [place], [phone]) PT Coag (PPP) [Time] 32.8 s High 11.7-14.9 [facility] Comment on above: Order Comment: 411.2 Performed By: #### L 300.3900 ####[facility] [address] [place], [place], [phone] Prothrombin timeOrdered By: Karon Corrales on 10-20-2024 PT Coag (PPP) [Time] 32.8 s High 11.7-14.9 [facility] International normalized rat io (INR) calculationOrdered By: Karon Corrales on 10-16-2024 INR Coag (Bld) [Relative time] 2.8 {INR} [facility] Prothrombin Time w/INRon INR Coag (PPP) [Relative time] 2.8 {INR} Normal [facility] Comment on above: Order Comment: 411.2 Performed By: #### L 300.3900 ####[facility] [address] [place], [place], [phone] PT Coag (PPP) [Time] 30.4 s High 11.7-14.9 [facility] Comment on above: Order Comment: 411.2 Performed By: #### L 300.3900 ####[facility] [address] [place], [place], [phone] Prothrombin timeOrdered By: Karon Corrales on 10-16-2024 PT Coag (PPP) [Time] 30.4 s High 11.7-14.9 [facility] International normalized rat io (INR) calculationOrdered By: Carlos Cavazos on 10-13-2024 INR Coag (Bld) [Relative time] 1.9 {INR} [facility] Prothrombin Time w/INRon INR Coag (PPP) [Relative time] 1.9 {INR} Normal [facility] Comment on above: Order Comment: 411-2 Performed By: #### L 300.3900 ####[facility] [address] [place], [place], [address] PT Coag (PPP) [Time] 22.4 s High 11.7-14.9 [facility] Comment on above: Order Comment: 411-2 Performed By: #### L 300.3900 ####[facility] [address] [place], [place], [phone] Prothrombin timeOrdered By: Carlos Cavazos on 10-13-2024 PT Coag (PPP) [Time] 22.4 s High 11.7-14.9 [facility] International normalized rat io (INR) calculationOrdered By: Karon Corrales on 10-09-2024 INR Coag (Bld) [Relative time] 3.0 {INR} [facility] Prothrombin Time w/INRon INR Coag (PPP) [Relative time] 3.0 {INR} Normal [facility] Comment on above: Order Comment: 411.2 Performed By: #### L 300.3900 ####[facility] [address] [place], [place], [address] Prothrombin timeOrdered By: Karon Corrales on 10-09-2024 PT Coag (PPP) [Time] 31.8 s High 11.7-14.9 [facility] Comment on above: Order Comment: 411.2 Performed By: #### L 300.3900 ####[facility] [address] [place], [place], [id number] International normalized rat io (INR) calculationOrdered By: Carlos Cavazos on 10-06-2024 INR Coag (Bld) [Relative time] 2.7 {INR} [facility] Prothrombin Time w/INRon INR Coag (PPP) [Relative time] 2.7 {INR} Normal [facility] Comment on above: Order Comment: 411-2 Performed By: #### L 300.3900 ####[facility] [address] [place], [place], [address] PT Coag (PPP) [Time] 29.6 s High 11.7-14.9 [facility] Comment on above: Order Comment: 411-2 Performed By: #### L 300.3900 ####[facility] [address] [place], [address] Prothrombin timeOrdered By: Carlos Cavazos on 10-06-2024 PT Coag (PPP) [Time] 29.6 s High 11.7-14.9 [facility] International normalized rat io (INR) calculationOrdered By: Karon Corrales on 10-02-2024 INR Coag (Bld) [Relative time] 2.3 {INR} [facility] Prothrombin Time w/INRon INR Coag (PPP) [Relative time] 2.3 {INR} Normal [facility] Comment on above: Order Comment: 411.2 Performed By: #### L 300.3900 ####[facility] [address] [place], [address] PT Coag (PPP) [Time] 26.0 s High 11.7-14.9 [facility] Comment on above: Order Comment: 411.2 Performed By: #### L 300.3900 ####[facility] [address] [place], [address] Prothrombin timeOrdered By: Karon Corrales on 10-02-2024 PT Coag (PPP) [Time] 26.0 s High 11.7-14.9 [facility] International normalized rat io (INR) calculationOrdered By: Karon Corrales on 09-30-2024 INR Coag (Bld) [Relative time] 3.1 {INR} [facility] Prothrombin Time w/INRon INR Coag (PPP) [Relative time] 3.1 {INR} Normal [facility] Comment on above: Order Comment: 411.2 Performed By: #### L 300.3900 ####[facility] [address] [place], [address] PT Coag (PPP) [Time] 32.6 s High 11.7-14.9 [facility] Comment on above: Order Comment: 411.2 Performed By: #### L 300.3900 ####[facility] [address] [place], [place], [phone] Prothrombin timeOrdered By: Karon Corrales on 09-30-2024 PT Coag (PPP) [Time] 32.6 s High 11.7-14.9 [facility] International normalized rat io (INR) calculationOrdered By: Karon Corrales on 09-25-2024 INR Coag (Bld) [Relative time] 2.4 {INR} [facility] Prothrombin Time w/INRon INR Coag (PPP) [Relative time] 2.4 {INR} Normal [facility] Comment on above: Order Comment: 411.2 Performed By: #### L 300.3900 ####[facility] [address] [place], [address] Prothrombin timeOrdered By: Karon Corrales on 09-25-2024 PT Coag (PPP) [Time] 26.7 s High 11.7-14.9 [facility] Comment on above: Order Comment: 411.2 Performed By: #### L 300.3900 ####[facility] [address] [place], [place], [phone] International normalized rat io (INR) calculationOrdered By: Karon Corrales on 09-22-2024 INR Coag (Bld) [Relative time] 2.5 {INR} [facility] Prothrombin Time w/INRon INR Coag (PPP) [Relative time] 2.5 {INR} Normal [facility] Comment on above: Order Comment: 411.2 Performed By: #### L 300.3900 ####[facility] [address] [place], [place], [phone] Prothrombin timeOrdered By: Karon Corrales on 09-22-2024 PT Coag (PPP) [Time] 27.4 s High 11.7-14.9 [facility] Comment on above: Order Comment: 411.2 Performed By: #### L 300.3900 ####[facility] [address] [place], [place], [phone] International normalized rat io (INR) calculationOrdered By: Karon Corrales on 09-18-2024 INR Coag (Bld) [Relative time] 2.2 {INR} [facility] Prothrombin Time w/INRon INR Coag (PPP) [Relative time] 2.2 {INR} Normal [facility] Comment on above: Order Comment: 411.2 Performed By: #### L 300.3900 ####[facility] [address] [place], [place], [address] PT Coag (PPP) [Time] 25.1 s High 11.7-14.9 [facility] Comment on above: Order Comment: 411.2 Performed By: #### L 300.3900 ####[facility] [address] [place], [place], [address] Prothrombin timeOrdered By: Karon Corrales on 09-18-2024 PT Coag (PPP) [Time] 25.1 s High 11.7-14.9 [facility] International normalized rat io (INR) calculationOrdered By: Carlos Cavazos on 09-15-2024 INR Coag (Bld) [Relative time] 2.4 {INR} [facility] Prothrombin Time w/INRon INR Coag (PPP) [Relative time] 2.4 {INR} Normal [facility] Comment on above: Order Comment: 411-2 Performed By: #### L 300.3900 ####[facility] [address] [place], [place], [id number] Prothrombin timeOrdered By: Carlos Cavazos on 09-15-2024 PT Coag (PPP) [Time] 26.3 s High 11.7-14.9 [facility] Comment on above: Order Comment: 411-2 Performed By: #### L 300.3900 ####[facility] [address] [place], [place], [phone] International normalized rat io (INR) calculationOrdered By: Karon Corrales on 09-11-2024 INR Coag (Bld) [Relative time] 2.0 {INR} [facility] Prothrombin Time w/INRon INR Coag (PPP) [Relative time] 2.0 {INR} Normal [facility] Comment on above: Order Comment: 411.2 Performed By: #### L 300.3900 ####[facility] [address] [place], [place], [phone] PT Coag (PPP) [Time] 22.9 s High 11.7-14.9 [facility] Comment on above: Order Comment: 411.2 Performed By: #### L 300.3900 ####[facility] [address] [place], [place], [phone] Prothrombin timeOrdered By: Karon Corrales on 09-11-2024 PT Coag (PPP) [Time] 22.9 s High 11.7-14.9 [facility] International normalized rat io (INR) calculationOrdered By: Karon Corrales on 09-08-2024 INR Coag (Bld) [Relative time] 2.0 {INR} [facility] Prothrombin Time w/INRon INR Coag (PPP) [Relative time] 2.0 {INR} Normal [facility] Comment on above: Order Comment: 411.2 Performed By: #### L 300.3900 ####[facility] [address] [place], [place], [phone] PT Coag (PPP) [Time] 22.8 s High 11.7-14.9 [facility] Comment on above: Order Comment: 411.2 Performed By: #### L 300.3900 ####[facility] [address] [place], [place], [phone] Prothrombin timeOrdered By: Karon Corrales on 09-08-2024 PT Coag (PPP) [Time] 22.8 s High 11.7-14.9 [facility] International normalized rat io (INR) calculationOrdered By: Carlos Cavazos on 09-04-2024 INR Coag (Bld) [Relative time] 1.7 {INR} [facility] Prothrombin Time w/INRon INR Coag (PPP) [Relative time] 1.7 {INR} Normal [facility] Comment on above: Order Comment: 411-2 Performed By: #### L 300.3900 ####[facility] [address] [place], [address] PT Coag (PPP) [Time] 20.8 s High 11.7-14.9 [facility] Comment on above: Order Comment: 411-2 Performed By: #### L 300.3900 ####[facility] [address] [place], [address] Prothrombin timeOrdered By: Carlos Cavazos on 09-04-2024 PT Coag (PPP) [Time] 20.8 s High 11.7-14.9 [facility] International normalized rat io (INR) calculationOrdered By: Carlos Cavazos on 09-01-2024 INR Coag (Bld) [Relative time] 2.9 {INR} [facility] Prothrombin Time w/INRon INR Coag (PPP) [Relative time] 2.9 {INR} Normal [facility] Comment on above: Order Comment: 411-2 Performed By: #### L 300.3900 ####[facility] [address] [place], [address]([phone]) PT Coag (PPP) [Time] 30.7 s High 11.7-14.9 [facility] Comment on above: Order Comment: 411-2 Performed By: #### L 300.3900 ####[facility] [address] [place], [place], [address] Prothrombin timeOrdered By: Carlos Cavazos on 09-01-2024 PT Coag (PPP) [Time] 30.7 s High 11.7-14.9 [facility] International normalized rat io (INR) calculationOrdered By: Carlos Cavazos on 08-28-2024 INR Coag (Bld) [Relative time] 2.4 {INR} [facility] Prothrombin Time w/INRon INR Coag (PPP) [Relative time] 2.4 {INR} Normal [facility] Comment on above: Order Comment: 411-2 Performed By: #### L 300.3900 ####[facility] [address] [place], [address] Prothrombin timeOrdered By: Carlos Cavazos on 08-28-2024 PT Coag (PPP) [Time] 26.7 s High 11.7-14.9 [facility] Comment on above: Order Comment: 411-2 Performed By: #### L 300.3900 ####[facility] [address] [place], [place], [id number] International normalized rat io (INR) calculationOrdered By: Karon Corrales on 08-25-2024 INR Coag (Bld) [Relative time] 1.8 {INR} [facility] Prothrombin Time w/INRon INR Coag (PPP) [Relative time] 1.8 {INR} Normal [facility] Comment on above: Order Comment: 411.2 Performed By: #### L 300.3900 ####[facility] [address] [place], [address] PT Coag (PPP) [Time] 21.6 s High 11.7-14.9 [facility] Comment on above: Order Comment: 411.2 Performed By: #### L 300.3900 ####[facility] [address] [place], [address] Prothrombin timeOrdered By: Karon Corrales on 08-25-2024 PT Coag (PPP) [Time] 21.6 s High 11.7-14.9 [facility] International normalized rat io (INR) calculationOrdered By: Karon Corrales on 08-21-2024 INR Coag (Bld) [Relative time] 1.7 {INR} [facility] PSA, total screeningOrdered By: Karon Corrales on 08-21-2024 Prostate Specific Antigen Screen 0.52 ng/mL 0.02-4.00 [facility] Comment on above: This test was [...] 08-21-2024 PSA,TOT SCREEN 0.52 ng/mL Normal 0.02-4.00 [facility] Comment on above: Order Comment: 411.2 [...] confirm baseline values. Performed By: #### L 920.9910, L300.3900 ####[facility] [address] [place], [place], [phone] Prothrombin Time w/INRon INR Coag (PPP) [Relative time] 1.7 {INR} Normal [facility] Comment on above: Order Comment: 411.2 Performed By: #### L 501.9910, L300.3900 ####[facility] [address] [place], [place], [phone] Prothrombin timeOrdered By: Karon Corrales on 08-21-2024 PT Coag (PPP) [Time] 20.1 s High 11.7-14.9 [facility] Comment on above: Order Comment: 411.2 Performed By: #### L 501.9910, L300.3900 ####[facility] [address] [place], [place], [address] International normalized rat io (INR) calculationOrdered By: Karon Corrales on 08-18-2024 INR Coag (Bld) [Relative time] 3.0 {INR} [facility] Prothrombin Time w/INRon INR Coag (PPP) [Relative time] 3.0 {INR} Normal [facility] Comment on above: Order Comment: 411.2 Performed By: #### L 300.3900 ####[facility] [address] [place], [place], [phone] PT Coag (PPP) [Time] 31.4 s High 11.7-14.9 [facility] Comment on above: Order Comment: 411.2 Performed By: #### L 300.3900 ####[facility] [address] [place], [place], [phone] Prothrombin timeOrdered By: Karon Corrales on 08-18-2024 PT Coag (PPP) [Time] 31.4 s High 11.7-14.9 [facility] International normalized rat io (INR) calculationOrdered By: Karon Corrales on 08-14-2024 INR Coag (Bld) [Relative time] 2.4 {INR} [facility] Prothrombin Time w/INRon INR Coag (PPP) [Relative time] 2.4 {INR} Normal [facility] Comment on above: Order Comment: 411.2 Performed By: #### L 300.3900 ####[facility] [address] [place], [place], [address](977) PT Coag (PPP) [Time] 26.6 s High 11.7-14.9 [facility] Comment on above: Order Comment: 411.2 Performed By: #### L 300.3900 ####[facility] [address] [place], [place], [phone]([phone] Prothrombin timeOrdered By: Karon Corrales on 08-14-2024 PT Coag (PPP) [Time] 26.6 s High 11.7-14.9 [facility] International normalized rat io (INR) calculationOrdered By: Karon Corrales on 08-11-2024 INR Coag (Bld) [Relative time] 3.1 {INR} [facility] Prothrombin Time w/INRon INR Coag (PPP) [Relative time] 3.1 {INR} Normal [facility] Comment on above: Order Comment: 411.2 Performed By: #### L 300.3900 ####[facility] [address] [place], [place], [phone](462) PT Coag (PPP) [Time] 32.4 s High 11.7-14.9 [facility] Comment on above: Order Comment: 411.2 Performed By: #### L 300.3900 ####[facility] [address] [place], [place], [phone](931) Prothrombin timeOrdered By: Karon Corrales on 08-11-2024 PT Coag (PPP) [Time] 32.4 s High 11.7-14.9 [facility] International normalized rat io (INR) calculationOrdered By: Carlos Cavazos on 08-07-2024 INR Coag (Bld) [Relative time] 2.8 {INR} [facility] Prothrombin Time w/INRon INR Coag (PPP) [Relative time] 2.8 {INR} Normal [facility] Comment on above: Order Comment: 411-2 Performed By: #### L 300.3900 ####[facility] [address] [place], [address] PT Coag (PPP) [Time] 30.3 s High 11.7-14.9 [facility] Comment on above: Order Comment: 411-2 Performed By: #### L 300.3900 ####[facility] [address] [place], [address] Prothrombin timeOrdered By: Carlos Cavazos on 08-07-2024 PT Coag (PPP) [Time] 30.3 s High 11.7-14.9 [facility] International normalized rat io (INR) calculationOrdered By: Carlos Cavazos on 08-04-2024 INR Coag (Bld) [Relative time] 1.9 {INR} [facility] Prothrombin Time w/INRon INR Coag (PPP) [Relative time] 1.9 {INR} Normal [facility] Comment on above: Order Comment: 411-2 Performed By: #### L 300.3900 ####[facility] [address] [place], [address] PT Coag (PPP) [Time] 22.1 s High 11.7-14.9 [facility] Comment on above: Order Comment: 411-2 Performed By: #### L 300.3900 ####[facility] [address] [place], [address] Prothrombin timeOrdered By: Carlos Cavazos on 08-04-2024 PT Coag (PPP) [Time] 22.1 s High 11.7-14.9 [facility] International normalized rat io (INR) calculationOrdered By: Karon Corrales on 07-31-2024 INR Coag (Bld) [Relative time] 3.2 {INR} [facility] Prothrombin Time w/INRon INR Coag (PPP) [Relative time] 3.2 {INR} Normal [facility] Comment on above: Order Comment: 411.2 Performed By: Ramon### L 907.5887 ####[facility] [address] [place], [address](074) PT Coag (PPP) [Time] 33.5 s High 11.7-14.9 [facility] Comment on above: Order Comment: 411.2 Performed By: #### L 3003902 ####[facility] [address] [place], [place], [phone] Prothrombin timeOrdered By: Karon Corrales on 07-31-2024 PT Coag (PPP) [Time] 33.5 s High 11.7-14.9 [facility] International normalized rat io (INR) calculationOrdered By: Karon Corrales on 07-28-2024 INR Coag (Bld) [Relative time] 2.7 {INR} [facility] Prothrombin Time w/INRon INR Coag (PPP) [Relative time] 2.7 {INR} Normal [facility] Comment on above: Order Comment: 411.2 Performed By: #### L 3003906 ####[facility] [address] [place], [address] PT Coag (PPP) [Time] 29.6 s High 11.7-14.9 [facility] Comment on above: Order Comment: 411.2 Performed By: #### L 3003900 ####[facility] [address] [place], [address] Prothrombin timeOrdered By: Karon Corrales on 07-28-2024 PT Coag (PPP) [Time] 29.6 s High 11.7-14.9 [facility] International normalized rat io (INR) calculationOrdered By: Carlos Cavazos on 07-25-2024 INR Coag (Bld) [Relative time] 3.0 {INR} [facility] Prothrombin Time w/INRon INR Coag (PPP) [Relative time] 3.0 {INR} Normal [facility] Comment on above: Order Comment: 411-2 Performed By: #### L 300.3900 ####[facility] [address] [place], [address] Prothrombin timeOrdered By: Carlos Cavazos on 07-25-2024 PT Coag (PPP) [Time] 32.1 s High 11.7-14.9 [facility] Comment on above: Order Comment: 411-2 Performed By: #### L 300.3900 ####[facility] [address] [place], [address] International normalized rat io (INR) calculationOrdered By: Karon Corrales on 07-24-2024 INR Coag (Bld) [Relative time] 3.4 {INR} [facility] Prothrombin Time w/INRon INR Coag (PPP) [Relative time] 3.4 {INR} Normal [facility] Comment on above: Order Comment: 411.2 Performed By: #### L 300.3900 ####[facility] [address] [place], [address] Prothrombin timeOrdered By: Karon Corrales on 07-24-2024 PT Coag (PPP) [Time] 35.4 s High 11.7-14.9 [facility] Comment on above: Order Comment: 411.2 Performed By: #### L 300.3900 ####[facility] [address] [place], [place], [address] International normalized rat io (INR) calculationOrdered By: Karon Corrales on 07-21-2024 INR Coag (Bld) [Relative time] 1.6 {INR} [facility] Prothrombin Time w/INRon INR Coag (PPP) [Relative time] 1.6 {INR} Normal [facility] Comment on above: Order Comment: 411.2 Performed By: #### L 300.3900 ####[facility] [address] [place], [address] PT Coag (PPP) [Time] 19.6 s High 11.7-14.9 [facility] Comment on above: Order Comment: 411.2 Performed By: #### L 300.3903 ####[facility] [address] [place], [address] Prothrombin timeOrdered By: Karon Corrales on 07-21-2024 PT Coag (PPP) [Time] 19.6 s High 11.7-14.9 [facility] International normalized rat io (INR) calculationOrdered By: Karon Corrales on 07-17-2024 INR Coag (Bld) [Relative time] 2.9 {INR} [facility] Prothrombin Time w/INRon INR Coag (PPP) [Relative time] 2.9 {INR} Normal [facility] Comment on above: Order Comment: 411.2 Performed By: #### L 300.3906 ####[facility] [address] [place], [address] PT Coag (PPP) [Time] 31.1 s High 11.7-14.9 [facility] Comment on above: Order Comment: 411.2 Performed By: #### L 300.3902 ####[facility] [address] [place], [address] Prothrombin timeOrdered By: Karon Corrales on 07-17-2024 PT Coag (PPP) [Time] 31.1 s High 11.7-14.9 [facility] International normalized rat io (INR) calculationOrdered By: Carlos Cavazos on 07-14-2024 INR Coag (Bld) [Relative time] 2.5 {INR} [facility] Prothrombin Time w/INRon INR Coag (PPP) [Relative time] 2.5 {INR} Normal [facility] Comment on above: Order Comment: 411-2 Performed By: #### L 300.3900 ####[facility] [address] [place], [address] PT Coag (PPP) [Time] 27.5 s High 11.7-14.9 [facility] Comment on above: Order Comment: 411-2 Performed By: #### L 300.3900 ####[facility] [address] [place], [address] Prothrombin timeOrdered By: Carlos Cavazos on 07-14-2024 PT Coag (PPP) [Time] 27.5 s High 11.7-14.9 [facility] International normalized rat io (INR) calculationOrdered By: Carlos Cavazos on 07-11-2024 INR Coag (Bld) [Relative time] 2.5 {INR} [facility] Prothrombin Time w/INRon INR Coag (PPP) [Relative time] 2.5 {INR} Normal [facility] Comment on above: Performed By: #### L 300.3900 ####[facility] [address] [place], [address] PT Coag (PPP) [Time] 27.7 s High 11.7-14.9 [facility] Comment on above: Performed By: #### L 300.3900 ####[facility] [address] [place], [address] Prothrombin timeOrdered By: Carlos Cavazos on 07-11-2024 PT Coag (PPP) [Time] 27.7 s High 11.7-14.9 [facility] Prothrombin Time w/INRon INR Normal [facility] Comment on above: Order Comment: 411.2 Result Comment: QNS TUBE NOT FILLED Performed By: #### L 300.3900 ####[facility] [address] [place], [address] PROTIME Normal 11.7-14.9 [facility] Comment on above: Order Comment: 411.2 Result Comment: QNS TUBE NOT FILLED Performed By: #### L 300.3900 ####[facility] [address] [place], [address] International normalized rat io (INR) calculationOrdered By: Kvng Crisostomo on 07-07-2024 INR Coag (Bld) [Relative time] 2.5 {INR} [facility] Prothrombin Time w/INRon INR Coag (PPP) [Relative time] 2.5 {INR} Normal [facility] Comment on above: Order Comment: 411.2 Performed By: #### L 300.3900 ####[facility] [address], [address] PT Coag (PPP) [Time] 27.2 s High 11.7-14.9 [facility] Comment on above: Order Comment: 411.2 Performed By: #### L 300.3900 ####[facility] [address] [place], [address] Prothrombin timeOrdered By: Kvng Crisostomo on 07-07-2024 PT Coag (PPP) [Time] 27.2 s High 11.7-14.9 [facility] International normalized rat io (INR) calculationOrdered By: Kvng Crisostomo on 07-03-2024 INR Coag (Bld) [Relative time] 2.5 {INR} [facility] Prothrombin Time w/INRon INR Coag (PPP) [Relative time] 2.5 {INR} Normal [facility] Comment on above: Order Comment: 411.2 Performed By: #### L 300.3900 ####[facility] [address] [place], [address] PT Coag (PPP) [Time] 27.2 s High 11.7-14.9 [facility] Comment on above: Order Comment: 411.2 Performed By: #### L 300.3900 ####[facility] [address] [place], [place], [phone]([phone] Prothrombin timeOrdered By: Kvng Crisostomo on 07-03-2024 PT Coag (PPP) [Time] 27.2 s High 11.7-14.9 [facility] International normalized rat io (INR) calculationOrdered By: Kvng Crisostomo on 06-30-2024 INR Coag (Bld) [Relative time] 2.4 {INR} [facility] Prothrombin Time w/INRon INR Coag (PPP) [Relative time] 2.4 {INR} Normal [facility] Comment on above: Order Comment: 411.2 Performed By: #### L 300.3900 ####[facility] [address] [place], [place], [phone](836) PT Coag (PPP) [Time] 26.8 s High 11.7-14.9 [facility] Comment on above: Order Comment: 411.2 Performed By: #### L 300.3900 ####[facility] [address] [place], [place], [phone](425) Prothrombin timeOrdered By: Kvng Crisostomo on 06-30-2024 PT Coag (PPP) [Time] 26.8 s High 11.7-14.9 [facility] International normalized rat io (INR) calculationOrdered By: Kvng Crisostomo on 06-26-2024 INR Coag (Bld) [Relative time] 2.5 {INR} [facility] Prothrombin Time w/INRon INR Coag (PPP) [Relative time] 2.5 {INR} Normal [facility] Comment on above: Order Comment: 411.2 Performed By: #### L 300.3900 ####[facility] [address] [place], [place], [phone] PT Coag (PPP) [Time] 27.5 s High 11.7-14.9 [facility] Comment on above: Order Comment: 411.2 Performed By: #### L 300.3900 ####[facility] [address] [place], [place], [phone](777) Prothrombin timeOrdered By: Kvng Crisostomo on 06-26-2024 PT Coag (PPP) [Time] 27.5 s High 11.7-14.9 [facility] International normalized rat io (INR) calculationOrdered By: Carlos Cavazos on 06-23-2024 INR Coag (Bld) [Relative time] 2.8 {INR} [facility] Prothrombin Time w/INRon INR Coag (PPP) [Relative time] 2.8 {INR} Normal [facility] Comment on above: Order Comment: 411-2 Performed By: #### L 300.3900 ####[facility] [address] [place], [address] PT Coag (PPP) [Time] 29.7 s High 11.7-14.9 [facility] Comment on above: Order Comment: 411-2 Performed By: #### L 300.3900 ####[facility] [address] [place], [place], [phone](528) Prothrombin timeOrdered By: Carlos Cavazos on 06-23-2024 PT Coag (PPP) [Time] 29.7 s High 11.7-14.9 [facility] International normalized rat io (INR) calculationOrdered By: Kvng Crisostomo on 06-19-2024 INR Coag (Bld) [Relative time] 2.6 {INR} [facility] Prothrombin Time w/INRon INR Coag (PPP) [Relative time] 2.6 {INR} Normal [facility] Comment on above: Order Comment: 411.2 Performed By: #### L 300.3900 ####[facility] [address] [place], [address] PT Coag (PPP) [Time] 28.6 s High 11.7-14.9 [facility] Comment on above: Order Comment: 411.2 Performed By: #### L 300.3900 ####[facility] [address] [place], [place], [phone](475) Prothrombin timeOrdered By: Kvng Crisostomo on 06-19-2024 PT Coag (PPP) [Time] 28.6 s High 11.7-14.9 [facility] International normalized rat io (INR) calculationOrdered By: Kvng Crisostomo on 06-16-2024 INR Coag (Bld) [Relative time] 2.5 {INR} [facility] Prothrombin Time w/INRon INR Coag (PPP) [Relative time] 2.5 {INR} Normal [facility] Comment on above: Order Comment: 411.2 Performed By: #### L 300.3900 ####[facility] [address] [place], [address] PT Coag (PPP) [Time] 27.3 s High 11.7-14.9 [facility] Comment on above: Order Comment: 411.2 Performed By: #### L 300.3900 ####[facility] [address] [place], [address] Prothrombin timeOrdered By: Kvng Crisostomo on 06-16-2024 PT Coag (PPP) [Time] 27.3 s High 11.7-14.9 [facility] International normalized rat io (INR) calculationOrdered By: Kvng Crisostomo on 06-12-2024 INR Coag (Bld) [Relative time] 2.1 {INR} [facility] Prothrombin Time w/INRon INR Coag (PPP) [Relative time] 2.1 {INR} Normal [facility] Comment on above: Order Comment: 411.2 Performed By: #### L 300.3900 ####[facility] [address] [place], [address] PT Coag (PPP) [Time] 24.0 s High 11.7-14.9 [facility] Comment on above: Order Comment: 411.2 Performed By: #### L 300.3900 ####[facility] [address] [place], [address](722) Prothrombin timeOrdered By: Kvng Crisostomo on 06-12-2024 PT Coag (PPP) [Time] 24.0 s High 11.7-14.9 [facility] International normalized rat io (INR) calculationOrdered By: Carlos Cavazos on 06-09-2024 INR Coag (Bld) [Relative time] 1.5 {INR} [facility] Prothrombin Time w/INRon INR Coag (PPP) [Relative time] 1.5 {INR} Normal [facility] Comment on above: Order Comment: 411-2 Performed By: #### L 300.3900 ####[facility] [address] [place], [place], [phone] PT Coag (PPP) [Time] 18.0 s High 11.7-14.9 [facility] Comment on above: Order Comment: 411-2 Performed By: #### L 300.3900 ####[facility] [address] [place], [address] Prothrombin timeOrdered By: Carlos Cavazos on 06-09-2024 PT Coag (PPP) [Time] 18.0 s High 11.7-14.9 [facility] International normalized rat io (INR) calculationOrdered By: Kvng Crisostomo on 06-05-2024 INR Coag (Bld) [Relative time] 2.8 {INR} [facility] Prothrombin Time w/INRon INR Coag (PPP) [Relative time] 2.8 {INR} Normal [facility] Comment on above: Order Comment: 411.2 Performed By: #### L 300.3900 ####[facility] [address] [place], [address] PT Coag (PPP) [Time] 30.3 s High 11.7-14.9 [facility] Comment on above: Order Comment: 411.2 Performed By: #### L 300.3900 ####[facility] [id number], [address] Prothrombin timeOrdered By: Kvng Crisostomo on 06-05-2024 PT Coag (PPP) [Time] 30.3 s High 11.7-14.9 [facility] [employer] normalized rat io (INR) calculationOrdered By: Babjulyet Andressa on 06-02-2024 INR Coag (Bld) [Relative time] 2.6 {INR} [facility] Prothrombin Time w/INRon INR Coag (PPP) [Relative time] 2.6 {INR} Normal [facility] Comment on above: Order Comment: 411.2 Performed By: #### L 300.3900 ####[facility] [id number], [address] PT Coag (PPP) [Time] 28.6 s High 11.7-14.9 [facility] Comment on above: Order Comment: 411.2 Performed By: #### L 300.3900 ####[facility] [address], [address] Prothrombin timeOrdered By: Kvng Crisostomo on 06-02-2024 PT Coag (PPP) [Time] 28.6 s High 11.7-14.9 [facility] normalized rat io (INR) calculationOrdered By: Elizabethet Andressa on 05-29-2024 INR Coag (Bld) [Relative time] 2.5 {INR} [facility] Prothrombin Time w/INRon INR Coag (PPP) [Relative time] 2.5 {INR} Normal [facility] Comment on above: Order Comment: 411.2 Performed By: #### L 300.3900 ####[facility] [address] [place], [address] PT Coag (PPP) [Time] 27.7 s High 11.7-14.9 [facility] Comment on above: Order Comment: 411.2 Performed By: #### L 300.3900 ####[facility] [address] [place], [place], [phone]([phone] Prothrombin timeOrdered By: Kvng Crisostomo on 05-29-2024 PT Coag (PPP) [Time] 27.7 s High 11.7-14.9 [facility] normalized rat io (INR) calculationOrdered By: Carlos Cavazos on 05-26-2024 INR Coag (Bld) [Relative time] 2.2 {INR} [facility] Prothrombin Time w/INRon INR Coag (PPP) [Relative time] 2.2 {INR} Normal [facility] Comment on above: Order Comment: 411-2 Performed By: #### L 300.3900 ####[facility] [address] [place], [address] PT Coag (PPP) [Time] 24.5 s High 11.7-14.9 [facility] Comment on above: Order Comment: 411-2 Performed By: #### L 300.3900 ####[facility] [address] [place], [place], [phone] Prothrombin timeOrdered By: Carlos Cavazos on 05-26-2024 PT Coag (PPP) [Time] 24.5 s High 11.7-14.9 [facility] normalized rat io (INR) calculationOrdered By: Kvng Crisostomo on 05-22-2024 INR Coag (Bld) [Relative time] 2.8 {INR} [facility] Prothrombin Time w/INRon INR Coag (PPP) [Relative time] 2.8 {INR} Normal [facility] Comment on above: Order Comment: 411.2 Performed By: #### L 300.3900 ####[facility] [address], [address] PT Coag (PPP) [Time] 30.3 s High 11.7-14.9 [facility] Comment on above: Order Comment: 411.2 Performed By: #### L 300.3900 ####[facility] [address] [place], [address] Prothrombin timeOrdered By: Kvng Crisostomo on 05-22-2024 PT Coag (PPP) [Time] 30.3 s High 11.7-14.9 [facility] normalized rat io (INR) calculationOrdered By: Kvng Crisostomo on 05-20-2024 INR Coag (Bld) [Relative time] 4.0 {INR} High [facility] Comment on above: CRITICAL VALUE CASEY D TO [id number]/14/25 0828 Diana Mattson.RESULTS READ BACK BY SAME. Prothrombin Time w/INRon INR Coag (PPP) [Relative time] 4.0 {INR} Invalid Interpretation Code [facility] Comment on above: Order Comment: 411.2 Result Comment: CRIT ICAL VALUE CALLED TO [id number]/14/25 [facility] Diana Mattson.RESULTS READ BACK BY SAME. Performed By: #### L 300.3900 ####[facility] [address] [place], [address] PT Coag (PPP) [Time] 39.9 s High 11.7-14.9 [facility] Comment on above: Order Comment: 411.2 Performed By: #### L 300.3900 ####[facility] [address] [place], [address] Prothrombin timeOrdered By: Kvng Crisostomo on 05-20-2024 PT Coag (PPP) [Time] 39.9 s High 11.7-14.9 [facility] normalized rat io (INR) calculationOrdered By: Kvng Crisostomo on 05-19-2024 INR Coag (Bld) [Relative time] 3.4 {INR} [facility] Prothrombin Time w/INRon INR Coag (PPP) [Relative time] 3.4 {INR} Normal [facility] Comment on above: Order Comment: 411.2 Performed By: #### L 300.3900 ####[facility] [address] [place], [address] PT Coag (PPP) [Time] 35.4 s High 11.7-14.9 [facility] Comment on above: Order Comment: 411.2 Performed By: #### L 300.3900 ####[facility] [address] [place], [address] Prothrombin timeOrdered By: Kvng Crisostomo on 05-19-2024 PT Coag (PPP) [Time] 35.4 s High 11.7-14.9 [facility] normalized rat io (INR) calculationOrdered By: Kvng Crisostomo on 05-15-2024 INR Coag (Bld) [Relative time] 2.6 {INR} [facility] Prothrombin Time w/INRon INR Coag (PPP) [Relative time] 2.6 {INR} Normal [facility] Comment on above: Order Comment: 411.2 Performed By: #### L 300.3900 ####[facility] [address] [place], [address] PT Coag (PPP) [Time] 28.7 s High 11.7-14.9 [facility] Comment on above: Order Comment: 411.2 Performed By: #### L 300.3900 ####[facility] [address] [place], [address] Prothrombin timeOrdered By: Kvng Crisostomo on 05-15-2024 PT Coag (PPP) [Time] 28.7 s High 11.7-14.9 [facility] normalized rat io (INR) calculationOrdered By: Carlos Cavazos on 05-12-2024 INR Coag (Bld) [Relative time] 2.1 {INR} [facility] Prothrombin Time w/INRon INR Coag (PPP) [Relative time] 2.1 {INR} Normal [facility] Comment on above: Order Comment: 411-2 Performed By: #### L 300.3900 ####[facility] [address] [place], [address] PT Coag (PPP) [Time] 24.1 s High 11.7-14.9 [facility] Comment on above: Order Comment: 411-2 Performed By: #### L 300.3900 ####[facility] [address] [place], [address] Prothrombin timeOrdered By: Carlos Cavazos on 05-12-2024 PT Coag (PPP) [Time] 24.1 s High 11.7-14.9 [facility] normalized rat io (INR) calculationOrdered By: Kvng Crisostomo on 05-09-2024 INR Coag (Bld) [Relative time] 3.4 {INR} [facility] Prothrombin Time w/INRon INR Coag (PPP) [Relative time] 3.4 {INR} Normal [facility] Comment on above: Order Comment: 411.2 Performed By: #### L 300.3900 ####[facility] [address] [place], [address] PT Coag (PPP) [Time] 35.4 s High 11.7-14.9 [facility] Comment on above: Order Comment: 411.2 Performed By: #### L 300.3900 ####[facility] [address] [place], [address] Prothrombin timeOrdered By: Kvng Crisostomo on 05-09-2024 PT Coag (PPP) [Time] 35.4 s High 11.7-14.9 [facility] normalized rat io (INR) calculationOrdered By: Kvng Crisostomo on 05-08-2024 INR Coag (Bld) [Relative time] 4.1 {INR} High [facility] Comment on above: CRITICAL VALUE CASEY D TO [facility]05/08/24 0950 Karen Jamison.RESULTS READ BACK BY SAME. Prothrombin Time w/INRon INR Coag (PPP) [Relative time] 4.1 {INR} Invalid Interpretation Code [facility] Comment on above: Order Comment: 411.2 Result Comment: CRIT ICAL VALUE CALLED TO [facility]05/08/24 0950 Karen Langn.RESULTS READ BACK BY SAME. Performed By: #### L 300.3900 ####[facility] [address] [place], [address] PT Coag (PPP) [Time] 40.8 s High 11.7-14.9 [facility] Comment on above: Order Comment: 411.2 Performed By: #### L 300.3900 ####[facility] [address] [place], [address] Prothrombin timeOrdered By: Kvng Crisostomo on 05-08-2024 PT Coag (PPP) [Time] 40.8 s High 11.7-14.9 [facility] normalized rat io (INR) calculationOrdered By: Kvng Crisostomo on 05-05-2024 INR Coag (Bld) [Relative time] 3.2 {INR} [facility] Prothrombin Time w/INRon INR Coag (PPP) [Relative time] 3.2 {INR} Normal [facility] Comment on above: Order Comment: 411.2 Performed By: #### L 300.3900 ####[facility] [address] [place], [address] PT Coag (PPP) [Time] 32.5 s High 11.7-14.9 [facility] Comment on above: Order Comment: 411.2 Performed By: #### L 300.3900 ####[facility] [address] [place], [address] Prothrombin timeOrdered By: Kvng Crisostomo on 05-05-2024 PT Coag (PPP) [Time] 32.5 s High 11.7-14.9 [facility] normalized rat io (INR) calculationOrdered By: Kvng Crisostomo on 05-01-2024 INR Coag (Bld) [Relative time] 3.1 {INR} [facility] Prothrombin Time w/INRon INR Coag (PPP) [Relative time] 3.1 {INR} Normal [facility] Comment on above: Order Comment: 411.2 Performed By: #### L 300.3900 ####[facility] [address] [facility] [address] PT Coag (PPP) [Time] 31.9 s High 11.7-14.9 [facility] Comment on above: Order Comment: 411.2 Performed By: #### L 300.3900 ####[facility] [address] [facility] [address] Prothrombin timeOrdered By: Kvng Crisostomo on 05-01-2024 PT Coag (PPP) [Time] 31.9 s High 11.7-14.9 [facility] normalized rat io (INR) calculationOrdered By: Carlos Cavazos on 04-28-2024 INR Coag (Bld) [Relative time] 2.6 {INR} [facility] Prothrombin Time w/INRon INR Coag (PPP) [Relative time] 2.6 {INR} Normal [facility] Comment on above: Order Comment: 411-2 Performed By: #### L 300.3900 ####[facility] [address] [facility] [address] PT Coag (PPP) [Time] 27.3 s High 11.7-14.9 [facility] Comment on above: Order Comment: 411-2 Performed By: #### L 300.3900 ####[facility] [address] [facility] [address] Prothrombin timeOrdered By: Carlos Cavazos on 04-28-2024 PT Coag (PPP) [Time] 27.3 s High 11.7-14.9 [facility] normalized rat io (INR) calculationOrdered By: Kvng Crisostomo on 04-24-2024 INR Coag (Bld) [Relative time] 3.6 {INR} [facility] Prothrombin Time w/INRon INR Coag (PPP) [Relative time] 3.6 {INR} Normal [facility] Comment on above: Order Comment: 411.2 Performed By: #### L 300.3900 ####[facility] [address] [place], [place], [address] PT Coag (PPP) [Time] 35.6 s High 11.7-14.9 [facility] Comment on above: Order Comment: 411.2 Performed By: #### L 300.3900 ####[facility] [address] [place], [place], [address] Prothrombin timeOrdered By: Kvng Crisostomo on 04-24-2024 PT Coag (PPP) [Time] 35.6 s High 11.7-14.9 [facility] normalized rat io (INR) calculationOrdered By: Carlos Cavazos on 04-21-2024 INR Coag (Bld) [Relative time] 2.8 {INR} [facility] Prothrombin Time w/INRon INR Coag (PPP) [Relative time] 2.8 {INR} Normal [facility] Comment on above: Order Comment: 411-2 Performed By: #### L 300.3900 ####[facility] [address] [place], [address](095) PT Coag (PPP) [Time] 29.4 s High 11.7-14.9 [facility] Comment on above: Order Comment: 411-2 Performed By: #### L 300.3900 ####[facility] [address] [place], [place], [address] Prothrombin timeOrdered By: Carlos Cavazos on 04-21-2024 PT Coag (PPP) [Time] 29.4 s High 11.7-14.9 [facility] normalized rat io (INR) calculationOrdered By: Kvng Crisostomo on 04-17-2024 INR Coag (Bld) [Relative time] 3.1 {INR} [facility] Prothrombin Time w/INRon INR Coag (PPP) [Relative time] 3.1 {INR} Normal [facility] Comment on above: Order Comment: 411.2 Performed By: #### L 300.3900 ####[facility] [address] [place], [address](183) Prothrombin timeOrdered By: Kvng Crisostomo on 04-17-2024 PT Coag (PPP) [Time] 31.3 s High 11.7-14.9 [facility] Comment on above: Order Comment: 411.2 Performed By: #### L 300.3900 ####[facility] [address] [place], [address]) International normalized rat io (INR) calculationOrdered By: Kvng Crisostomo on 04-14-2024 INR Coag (Bld) [Relative time] 3.3 {INR} [facility] Prothrombin Time w/INRon INR Coag (PPP) [Relative time] 3.3 {INR} Normal [facility] Comment on above: Order Comment: 411.2 Performed By: #### L 300.3900 ####[facility] [address] [place], [address] PT Coag (PPP) [Time] 33.2 s High 11.7-14.9 [facility] Comment on above: Order Comment: 411.2 Performed By: #### L 300.3900 ####[facility] [address] [place], [address] Prothrombin timeOrdered By: Kvng Crisostomo on 04-14-2024 PT Coag (PPP) [Time] 33.2 s High 11.7-14.9 [facility] normalized rat io (INR) calculationOrdered By: Kvng Crisostomo on 04-10-2024 INR Coag (Bld) [Relative time] 2.8 {INR} [facility] Prothrombin Time w/INRon INR Coag (PPP) [Relative time] 2.8 {INR} Normal [facility] Comment on above: Order Comment: 411.2 Performed By: #### L 300.3900 ####[facility] [address] [facility] [address] PT Coag (PPP) [Time] 29.2 s High 11.7-14.9 [facility] Comment on above: Order Comment: 411.2 Performed By: #### L 300.3900 ####[facility] [address] [facility] [address] Prothrombin timeOrdered By: Kvng Crisostomo on 04-10-2024 PT Coag (PPP) [Time] 29.2 s High 11.7-14.9 [facility] normalized rat io (INR) calculationOrdered By: Carlos Cavazos on 04-07-2024 INR Coag (Bld) [Relative time] 2.7 {INR} [facility] Prothrombin Time w/INRon INR Coag (PPP) [Relative time] 2.7 {INR} Normal [facility] Comment on above: Order Comment: 411-2 Performed By: #### L 300.3900 ####[facility] [address] [facility] [address] PT Coag (PPP) [Time] 28.1 s High 11.7-14.9 [facility] Comment on above: Order Comment: 411-2 Performed By: #### L 300.3900 ####[facility] [address] [facility] [address] Prothrombin timeOrdered By: Carlos Cavazos on 04-07-2024 PT Coag (PPP) [Time] 28.1 s High 11.7-14.9 [facility] normalized rat io (INR) calculationOrdered By: Kvng Crisostomo on 04-04-2024 INR Coag (Bld) [Relative time] 2.8 {INR} [facility] Prothrombin Time w/INRon INR Coag (PPP) [Relative time] 2.8 {INR} Normal [facility] Comment on above: Order Comment: 411.2 Performed By: #### L 300.3900 ####[facility] [address], [address] PT Coag (PPP) [Time] 28.9 s High 11.7-14.9 [facility] Comment on above: Order Comment: 411.2 Performed By: #### L 300.3900 ####[facility] [address] [place], [address] Prothrombin timeOrdered By: Kvng Crisostomo on 04-04-2024 PT Coag (PPP) [Time] 28.9 s High 11.7-14.9 [facility] normalized rat io (INR) calculationOrdered By: Carlos Cavazos on 03-31-2024 INR Coag (Bld) [Relative time] 2.6 {INR} [facility] Prothrombin Time w/INRon INR Coag (PPP) [Relative time] 2.6 {INR} Normal [facility] Comment on above: Order Comment: 411-2 Performed By: #### L 300.3900 ####[facility] [address] [place], [address]42) PT Coag (PPP) [Time] 27.3 s High 11.7-14.9 [facility] Comment on above: Order Comment: 411-2 Performed By: #### L 300.3900 ####[facility] [address] [place], [place], [address] Prothrombin timeOrdered By: Carlos Cavazos on 03-31-2024 PT Coag (PPP) [Time] 27.3 s High 11.7-14.9 [facility] normalized rat io (INR) calculationOrdered By: [employer] on 03-27-2024 INR Coag (Bld) [Relative time] 2.2 {INR} [facility] Prothrombin Time w/INRon INR Coag (PPP) [Relative time] 2.2 {INR} Normal [facility] Comment on above: Order Comment: 411.2 Performed By: #### L 300.3900 ####[facility] [address], [address] PT Coag (PPP) [Time] 24.3 s High 11.7-14.9 [facility] Comment on above: Order Comment: 411.2 Performed By: #### L 300.3900 ####[facility] [address] [place], [address] Prothrombin timeOrdered By: [employer] on 03-27-2024 PT Coag (PPP) [Time] 24.3 s High 11.7-14.9 [facility] normalized rat io (INR) calculationOrdered By: Kvng Crisostomo on 03-24-2024 INR Coag (Bld) [Relative time] 1.8 {INR} [facility] Prothrombin Time w/INRon INR Coag (PPP) [Relative time] 1.8 {INR} Normal [facility] Comment on above: Order Comment: 411.2 Performed By: #### L 300.3900 ####[facility] [address] [place], [address] PT Coag (PPP) [Time] 20.7 s High 11.7-14.9 [facility] Comment on above: Order Comment: 411.2 Performed By: #### L 300.3900 ####[facility] [address] [place], [place], [phone](265) Prothrombin timeOrdered By: Kvng Crisostomo on 03-24-2024 PT Coag (PPP) [Time] 20.7 s High 11.7-14.9 [facility] normalized rat io (INR) calculationOrdered By: [employer] on 03-20-2024 INR Coag (Bld) [Relative time] 1.8 {INR} [facility] Prothrombin Time w/INRon INR Coag (PPP) [Relative time] 1.8 {INR} Normal [facility] Comment on above: Order Comment: 411.2 Performed By: #### L 300.3900 ####[facility] [address] [place], [address] PT Coag (PPP) [Time] 20.9 s High 11.7-14.9 [facility] Comment on above: Order Comment: 411.2 Performed By: #### L 300.3900 ####[facility] [address] [place], [address] Prothrombin timeOrdered By: [employer] on 03-20-2024 PT Coag (PPP) [Time] 20.9 s High 11.7-14.9 [facility] normalized rat io (INR) calculationOrdered By: Kvng Crisostomo on 03-19-2024 INR Coag (Bld) [Relative time] 2.4 {INR} [facility] Prothrombin Time w/INRon INR Coag (PPP) [Relative time] 2.4 {INR} Normal [facility] Comment on above: Order Comment: 411.2 Performed By: #### L 300.3900 ####[facility] [address] [place], [address] PT Coag (PPP) [Time] 26.4 s High 11.7-14.9 [facility] Comment on above: Order Comment: 411.2 Performed By: #### L 300.3900 ####[facility] [address] [place], [place], [phone]([phone] Prothrombin timeOrdered By: Kvng Crisostomo on 03-19-2024 PT Coag (PPP) [Time] 26.4 s High 11.7-14.9 [facility] normalized rat io (INR) calculationOrdered By: [employer] on 03-18-2024 INR Coag (Bld) [Relative time] 3.2 {INR} [facility] Prothrombin Time w/INRon INR Coag (PPP) [Relative time] 3.2 {INR} Normal [facility] Comment on above: Order Comment: 411.2 Performed By: #### L 300.3900 ####[facility] [address] [place], [address] PT Coag (PPP) [Time] 32.3 s High 11.7-14.9 [facility] Comment on above: Order Comment: 411.2 Performed By: #### L 300.3900 ####[facility] [address] [place], [address] Prothrombin timeOrdered By: [employer] on 03-18-2024 PT Coag (PPP) [Time] 32.3 s High 11.7-14.9 [facility] normalized rat io (INR) calculationOrdered By: [employer] on 03-17-2024 INR Coag (Bld) [Relative time] 3.6 {INR} [facility] Prothrombin Time w/INRon INR Coag (PPP) [Relative time] 3.6 {INR} Normal [facility] Comment on above: Order Comment: 411.2 Performed By: #### L 300.3900 ####[facility] [address] [place], [address] PT Coag (PPP) [Time] 35.7 s High 11.7-14.9 [facility] Comment on above: Order Comment: 411.2 Performed By: #### L 300.3900 ####[facility] [address] [place], [place], [phone]([phone] Prothrombin timeOrdered By: [employer] on 03-17-2024 PT Coag (PPP) [Time] 35.7 s High 11.7-14.9 [facility] normalized rat io (INR) calculationOrdered By: Carlos Cavazos on 03-14-2024 INR Coag (Bld) [Relative time] 3.5 {INR} [facility] Prothrombin Time w/INRon INR Coag (PPP) [Relative time] 3.5 {INR} Normal [facility] Comment on above: Order Comment: 411-2 Performed By: #### L 300.3900 ####[facility] [address], [address] PT Coag (PPP) [Time] 35.0 s High 11.7-14.9 [facility] Comment on above: Order Comment: 411-2 Performed By: #### L 300.3900 ####[facility] [address] [place], [address] Prothrombin timeOrdered By: Carlos Cavazos on 03-14-2024 PT Coag (PPP) [Time] 35.0 s High 11.7-14.9 [facility] normalized rat io (INR) calculationOrdered By: [employer] on 03-13-2024 INR Coag (Bld) [Relative time] 3.2 {INR} [facility] Prothrombin Time w/INRon INR Coag (PPP) [Relative time] 3.2 {INR} Normal [facility] Comment on above: Performed By: #### L 300.3900 ####[facility] [address] [place], [address] PT Coag (PPP) [Time] 32.2 s High 11.7-14.9 [facility] Comment on above: Performed By: #### L 300.3900 ####[facility] [address] [place], [address] Prothrombin timeOrdered By: [employer] on 03-13-2024 PT Coag (PPP) [Time] 32.2 s High 11.7-14.9 [facility] Prothrombin Time w/INRon INR Coag (PPP) [Relative time] 2.6 {INR} Normal [facility] Comment on above: Order Comment: 411.2 Performed By: #### L 300.3900 ####[facility] [address] [place], [address] PT Coag (PPP) [Time] 27.7 s High 11.7-14.9 [facility] Comment on above: Order Comment: 411.2 Performed By: #### L 300.3900 ####[facility] [address] [place], [address] Prothrombin Time w/INRon INR Coag (PPP) [Relative time] 3.1 {INR} Normal [facility] Comment on above: Order Comment: 411.2 Performed By: #### L 300.3900 ####[facility] [address] [place], [address] PT Coag (PPP) [Time] 31.4 s High 11.7-14.9 [facility] Comment on above: Order Comment: 411.2 Performed By: #### L 300.3900 ####[facility] [address] [place], [address] Prothrombin Time w/INRon INR Coag (PPP) [Relative time] 3.1 {INR} Normal [facility] Comment on above: Order Comment: 411.2 Performed By: #### L 300.3900 ####[facility] [address] [place], [address] PT Coag (PPP) [Time] 31.8 s High 11.7-14.9 [facility] Comment on above: Order Comment: 411.2 Performed By: #### L 300.3900 ####[facility] [address] [place], [address] Prothrombin Time w/INRon 10- -2023 INR Coag (PPP) [Relative time] 3.0 {INR} Normal [facility] Comment on above: Order Comment: 411.2 Performed By: #### L 300.3900 ####[facility] [address] [place], [address] PT Coag (PPP) [Time] 30.6 s High 11.7-14.9 [facility] Comment on above: Order Comment: 411.2 Performed By: #### L 300.3900 ####[facility] [address] [place], [address] Prothrombin Time w/INRon - -2023 INR Coag (PPP) [Relative time] 2.6 {INR} Normal [facility] Comment on above: Order Comment: 411-2 Performed By: #### L 300.3900 ####[facility] [address] [place], [address] PT Coag (PPP) [Time] 27.5 s High 11.7-14.9 [facility] Comment on above: Order Comment: 411-2 Performed By: #### L 300.3900 ####[facility] [address] [place], [address] Prothrombin Time w/INRon - -2023 INR Coag (PPP) [Relative time] 2.3 {INR} Normal [facility] Comment on above: Order Comment: 411.2 Performed By: #### L 300.3900 ####[facility] [address] [place], [address] PT Coag (PPP) [Time] 25.5 s High 11.7-14.9 [facility] Comment on above: Order Comment: 411.2 Performed By: #### L 300.3900 ####[facility] [address] [place], [address] Prothrombin Time w/INRon INR Coag (PPP) [Relative time] 1.9 {INR} Normal [facility] Comment on above: Order Comment: 411.2 Performed By: #### L 300.3900 ####[facility] [address] [place], [place], [address] PT Coag (PPP) [Time] 21.3 s High 11.7-14.9 [facility] Comment on above: Order Comment: 411.2 Performed By: #### L 300.3900 ####[facility] [address] [place], [address] Prothrombin Time w/INRon INR Coag (PPP) [Relative time] 2.5 {INR} Normal [facility] Comment on above: Order Comment: 411.2 Performed By: #### L 300.3900 ####[facility] [address] [place], [address] PT Coag (PPP) [Time] 26.5 s High 11.7-14.9 [facility] Comment on above: Order Comment: 411.2 Performed By: #### L 300.3900 ####[facility] [address] [place], [address] Prothrombin Time w/INRon INR Coag (PPP) [Relative time] 2.9 {INR} Normal [facility] Comment on above: Order Comment: 411.2 Performed By: #### L 300.3900 ####[facility] [address] [place], [address] PT Coag (PPP) [Time] 30.2 s High 11.7-14.9 [facility] Comment on above: Order Comment: 411.2 Performed By: #### L 300.3900 ####[facility] [address] [place], [address] Prothrombin Time w/INRon INR Coag (PPP) [Relative time] 3.6 {INR} Normal [facility] Comment on above: Order Comment: 411.2 Performed By: #### L 300.3900 ####[facility] [address] [place], [address] PT Coag (PPP) [Time] 35.3 s High 11.7-14.9 [facility] Comment on above: Order Comment: 411.2 Performed By: #### L 300.3900 ####[facility] [address] [place], [address] Prothrombin Time w/INRon INR Coag (PPP) [Relative time] 2.8 {INR} Normal [facility] Comment on above: Order Comment: 411-2 Performed By: #### L 300.3900 ####[facility] [address] [place], [address] PT Coag (PPP) [Time] 29.4 s High 11.7-14.9 [facility] Comment on above: Order Comment: 411-2 Performed By: #### L 300.3900 ####[facility] [address] [place], [address] Prothrombin Time w/INRon INR Coag (PPP) [Relative time] 2.9 {INR} Normal [facility] Comment on above: Order Comment: 411.2 Performed By: #### L 300.3900 ####[facility] [address] [place], [address] PT Coag (PPP) [Time] 29.9 s High 11.7-14.9 [facility] Comment on above: Order Comment: 411.2 Performed By: #### L 300.3900 ####[facility] [address] [place], [address] Prothrombin Time w/INRon INR Coag (PPP) [Relative time] 2.2 {INR} Normal [facility] Comment on above: Order Comment: 411.2 Performed By: #### L 300.3900 ####[facility] [address] [place], [address] PT Coag (PPP) [Time] 24.1 s High 11.7-14.9 [facility] Comment on above: Order Comment: 411.2 Performed By: #### L 300.3900 ####[facility] [address] [place], [address] Prothrombin Time w/INRon INR Coag (PPP) [Relative time] 2.1 {INR} Normal [facility] Comment on above: Order Comment: 411-2 Performed By: #### L 300.3900 ####[facility] [address] [place], [address] PT Coag (PPP) [Time] 23.0 s High 11.7-14.9 [facility] Comment on above: Order Comment: 411-2 Performed By: #### L 300.3900 ####[facility] [address] [place], [address] Prothrombin Time w/INRon INR Coag (PPP) [Relative time] 2.8 {INR} Normal [facility] Comment on above: Performed By: #### L 300.3900 ####[facility] [address] [place], [address] PT Coag (PPP) [Time] 28.9 s High 11.7-14.9 [facility] Comment on above: Performed By: #### L 300.3900 ####[facility] [address] [place], [address] Protime w/INR Fingerstickon 01-29-2024 INR Coag (PPP) [Relative time] 3.2 {INR} Normal [facility] Comment on above: Result Comment: Crit ical Value > 4.0 Performed By: #### L 9200.0000 ####[facility] [address] [place], [address] Protime Coagsen 31.8 SEC High 11.7-14.9 [facility] Comment on above: Performed By: #### L 9200.0000 ####[facility] [address] [place], [address] KEPPRA (LEVETIRACETAM)on KEPPRA 35.2 ug/mL Normal 10.0-40.0 [facility] Comment on above: Order Comment: 411-2 Result Comment: Perf ormed at: [facility] [id number] Director: Alpesh Vázquez MD, Phone: [phone] Performed By: #### L 300.3900, L3310.0000 ####[facility] [address] [place], [address] Prothrombin Time w/INRon INR Coag (PPP) [Relative time] 2.9 {INR} Normal [facility] Comment on above: Order Comment: 411-2 Performed By: #### L 300.3900, L3310.0000 ####[facility] [address] [place], [address] PT Coag (PPP) [Time] 30.1 s High 11.7-14.9 [facility] Comment on above: Order Comment: 411-2 Performed By: #### L 300.3900, L3310.0000 ####[facility] [address] [place], [address] Prothrombin Time w/INRon INR Coag (PPP) [Relative time] 2.3 {INR} Normal [facility] Comment on above: Order Comment: 411-2 Performed By: #### L 300.3900 ####[facility] [address] [place], [address] PT Coag (PPP) [Time] 25.2 s High 11.7-14.9 [facility] Comment on above: Order Comment: 411-2 Performed By: #### L 300.3900 ####[facility] [address] [place], [address] Prothrombin Time w/INRon INR Coag (PPP) [Relative time] 2.7 {INR} Normal [facility] Comment on above: Order Comment: 411-2 Performed By: #### L 300.3900 ####[facility] [address] [place], [address] PT Coag (PPP) [Time] 28.3 s High 11.7-14.9 [facility] Comment on above: Order Comment: 411-2 Performed By: #### L 300.3900 ####[facility] [address] [place], [address] Protime w/INR Fingerstickon 01-10-2024 INR Coag (PPP) [Relative time] 3.5 {INR} Normal [facility] Comment on above: Result Comment: Crit ical Value > 4.0 Performed By: #### L 9200.0000 ####[facility] [address] [place], [address] Protime Coagsen 34.2 SEC High 11.7-14.9 [facility] Comment on above: Performed By: #### L 9200.0000 ####[facility] [address] [place], [address] CBC-Complete Blood Cnt No Di marianon 01-08-2024 Erythrocyte distribution width (RBC) [Ratio] 15.2 % High 11.6-14.6 [facility] Comment on above: Order Comment: 411-2 Performed By: #### L 100.0500, L300.3900 ####[facility] [address] [place], [address] Hematocrit (Bld) [Volume fraction] 39.0 % Low 40-54 [facility] Comment on above: Order Comment: 411-2 Performed By: #### L 100.0500, L300.3900 ####[facility] [address] [place], [address] Hemoglobin (Bld) [Mass/Vol] 12.1 g/dL Low 13.0-16.5 [facility] Comment on above: Order Comment: 411-2 Performed By: #### L 100.0500, L300.3900 ####[facility] [address] [place], [address] MCH (RBC) [Entitic mass] 27.1 pg Normal 27.0-32.0 [facility] Comment on above: Order Comment: 411-2 Performed By: #### L 100.0500, L300.3900 ####[facility] [address] [place], [address] MCHC (RBC) [Mass/Vol] 31.0 g/dL Low 32-36 [facility] Comment on above: Order Comment: 411-2 Performed By: #### L 100.0500, L300.3900 ####[facility] [address] [place], [address] MCV (RBC) [Entitic vol] 87.2 fL Normal 80-94 [facility] Comment on above: Order Comment: 411-2 Performed By: #### L 100.0500, L300.3900 ####[facility] [address] [place], [address] Platelet mean volume (Bld) [Entitic vol] 10.8 fL Normal 6.2-12.0 [facility] Comment on above: Order Comment: 411-2 Performed By: #### L 100.0500, L300.3900 ####[facility] [address] [place], [address] Platelets (Bld) [#/Vol] 300 10*3/uL Normal 150-450 [facility] Comment on above: Order Comment: 411-2 Performed By: #### L 100.0500, L300.3900 ####[facility] [address] [place], [address] RBC (Bld) [#/Vol] 4.47 10*6/uL Low 4.6-6.2 [facility] Comment on above: Order Comment: 411-2 Performed By: #### L 100.0500, L300.3900 ####[facility] [address] [place], [address] RDW SD 48.7 fl High 35.1-43.9 [facility] Comment on above: Order Comment: 411-2 Performed By: #### L 100.0500, L300.3900 ####[facility] [address] [place], [address] WBC (Bld) [#/Vol] 13.0 10*3/uL High 4.4-11.0 [facility] Comment on above: Order Comment: 411-2 Performed By: #### L 100.0500, L300.3900 ####[facility] [address] [place], [address] Prothrombin Time w/INRon INR Coag (PPP) [Relative time] 3.9 {INR} Normal [facility] Comment on above: Order Comment: 411-2 Performed By: #### L 100.0500, L300.3900 ####[facility] [address] [place], [address] PT Coag (PPP) [Time] 37.8 s High 11.7-14.9 [facility] Comment on above: Order Comment: 411-2 Performed By: #### L 100.0500, L300.3900 ####[facility] [address] [place], [address] Urine Cultureon 01-03-2024 URC Culture exhibits no growth. Normal [facility] Comment on above: Performed By: #### M 100.2200, L400.0001, L300.3900 ####[facility] [address] [place], [address] Prothrombin Time w/INRon INR Coag (PPP) [Relative time] 3.0 {INR} Normal [facility] Comment on above: Performed By: #### M 100.2200, L400.0001, L300.3900 ####[facility] [address] [place], [address] PT Coag (PPP) [Time] 30.7 s High 11.7-14.9 [facility] Comment on above: Performed By: #### M 100.2200, L400.0001, L300.3900 ####[facility] [address] [place], [address] Urinalysis, Completeon 01-01 RBC 0-5 SEEN Normal 0-5 [facility] Comment on above: Order Comment: CLEAN CATCH Performed By: #### M 100.2200, L400.0001, L300.3900 ####[facility] [address] [place], [address] BACTERIA 0 SEEN Normal None Seen [facility] Comment on above: Order Comment: CLEAN CATCH Performed By: #### M 100.2200, L400.0001, L300.3900 ####[facility] [address] [place], [address] EPI,SQUAMOUS 0 SEEN Normal 0-5 [facility] Comment on above: Order Comment: CLEAN CATCH Performed By: #### M 100.2200, L400.0001, L300.3900 ####[facility] [address] [place], [address] Mucus Ql (Urine sed) 0 SEEN Normal [facility] Comment on above: Order Comment: CLEAN CATCH Performed By: #### M 100.2200, L400.0001, L300.3900 ####[facility] [address] [place], [address] WBC 0 SEEN Normal 0-5 [facility] Comment on above: Order Comment: CLEAN CATCH Performed By: #### M 100.2200, L400.0001, L300.3900 ####[facility] [address] [place], [address] Basic Metabolic Profile (BMP )on 01-01-2024 BUN/CRE 25.0 RATIO High 10-20 [facility] Comment on above: Order Comment: 411.2 Performed By: #### L 300.3900, L100.0500, L500.2500 ####[facility] [address] [place], [address] CA,Total 9.1 mg/dL Normal 8.5-10.1 [facility] Comment on above: Order Comment: 411.2 Performed By: #### L 300.3900, L100.0500, L500.2500 ####[facility] [address] [place], [address] Chloride [Moles/Vol] 104 mmol/L Normal 98-107 [facility] Comment on above: Order Comment: 411.2 Performed By: #### L 300.3900, L100.0500, L500.2500 ####[facility] [address] [place], [address] CO2 [Moles/Vol] 24.0 mmol/L Normal 21.0-32.0 [facility] Comment on above: Order Comment: 411.2 Performed By: #### L 300.3900, L100.0500, L500.2500 ####[facility] [address] [place], [address] Creatinine [Mass/Vol] 0.84 mg/dL Normal 0.70-1.30 [facility] Comment on above: Order Comment: 411.2 Result Comment: The validity of the calculated GFR GFRAA in patients over70 years has not been determined. Clinical correlation isessential. Performed By: #### L 300.3900, L100.0500, L500.2500 ####[facility] [address] [place], [address] EST GFR - AA 116 mL/min Normal >60 [facility] Comment on above: Order Comment: 411.2 Result Comment: Afri can [place] GFR Calc Performed By: #### L 300.3900, L100.0500, L500.2500 ####[facility] [address] [place], [address] GAP 9 Normal 5-15 [facility] Comment on above: Order Comment: 411.2 Performed By: #### L 300.3900, L100.0500, L500.2500 ####[facility] [address] [place], [address] GFR/1.73 sq M.predicted among non-blacks MDRD (S/P/Bld) [Vol rate/Area] 95 mL/min/{1.73_m2} Normal >60 [facility] Comment on above: Order Comment: 411.2 Result Comment: Non- GFR Calc Performed By: #### L 300.3900, L100.0500, L500.2500 ####[facility] [address] [place], [address] Glucose [Mass/Vol] 92 mg/dL Normal 74-106 [facility] Comment on above: Order Comment: 411.2 Performed By: #### L 300.3900, L100.0500, L500.2500 ####[facility] [address] [place], [address] Potassium [Moles/Vol] 4.2 mmol/L Normal 3.5-5.1 [facility] Comment on above: Order Comment: 411.2 Performed By: #### L 300.3900, L100.0500, L500.2500 ####[facility] [address] [place], [address] Sodium [Moles/Vol] 137 mmol/L Normal 136-145 [facility] Comment on above: Order Comment: 411.2 Performed By: #### L 300.3900, L100.0500, L500.2500 ####[facility] [address] [place], [address] Urea nitrogen [Mass/Vol] 21 mg/dL High 7-18 [facility] Comment on above: Order Comment: 411.2 Performed By: #### L 300.3900, L100.0500, L500.2500 ####[facility] [address] [place], [address] CBC-Complete Blood Cnt No Di ffon 01-01-2024 Erythrocyte distribution width (RBC) [Ratio] 14.9 % High 11.6-14.6 [facility] Comment on above: Order Comment: 411.2 Performed By: #### L 300.3900, L100.0500, L500.2500 ####[facility] [address] [place], [address] Hematocrit (Bld) [Volume fraction] 38.4 % Low 40-54 [facility] Comment on above: Order Comment: 411.2 Performed By: #### L 300.3900, L100.0500, L500.2500 ####[facility] [address] [place], [address] Hemoglobin (Bld) [Mass/Vol] 12.2 g/dL Low 13.0-16.5 [facility] Comment on above: Order Comment: 411.2 Performed By: #### L 300.3900, L100.0500, L500.2500 ####[facility] [address] [place], [address] MCH (RBC) [Entitic mass] 27.1 pg Normal 27.0-32.0 [facility] Comment on above: Order Comment: 411.2 Performed By: #### L 300.3900, L100.0500, L500.2500 ####[facility] [address] [place], [address] MCHC (RBC) [Mass/Vol] 31.8 g/dL Low 32-36 [facility] Comment on above: Order Comment: 411.2 Performed By: #### L 300.3900, L100.0500, L500.2500 ####[facility] [address] [place], [address] MCV (RBC) [Entitic vol] 85.3 fL Normal 80-94 [facility] Comment on above: Order Comment: 411.2 Performed By: #### L 300.3900, L100.0500, L500.2500 ####[facility] [address] [place], [address] Platelet mean volume (Bld) [Entitic vol] 10.1 fL Normal 6.2-12.0 [facility] Comment on above: Order Comment: 411.2 Performed By: #### L 300.3900, L100.0500, L500.2500 ####[facility] [address] [place], [address] Platelets (Bld) [#/Vol] 287 10*3/uL Normal 150-450 [facility] Comment on above: Order Comment: 411.2 Performed By: #### L 300.3900, L100.0500, L500.2500 ####[facility] [address] [place], [address] RBC (Bld) [#/Vol] 4.50 10*6/uL Low 4.6-6.2 [facility] Comment on above: Order Comment: 411.2 Performed By: #### L 300.3900, L100.0500, L500.2500 ####[facility] [address] [place], [address] RDW SD 46.5 fl High 35.1-43.9 [facility] Comment on above: Order Comment: 411.2 Performed By: #### L 300.3900, L100.0500, L500.2500 ####[facility] [address] [place], [address] WBC (Bld) [#/Vol] 14.8 10*3/uL High 4.4-11.0 [facility] Comment on above: Order Comment: 411.2 Performed By: #### L 300.3900, L100.0500, L500.2500 ####[facility] [address] [place], [address] Prothrombin Time w/INRon INR Coag (PPP) [Relative time] 2.5 {INR} Normal [facility] Comment on above: Order Comment: 411.2 Performed By: #### L 300.3900, L100.0500, L500.2500 ####[facility] [address] [place], [address] PT Coag (PPP) [Time] 26.6 s High 11.7-14.9 [facility] Comment on above: Order Comment: 411.2 Performed By: #### L 300.3900, L100.0500, L500.2500 ####[facility] [address] [place], [address] Prothrombin Time w/INRon INR Coag (PPP) [Relative time] 2.1 {INR} Normal [facility] Comment on above: Order Comment: 411.2 Performed By: #### L 300.3900 ####[facility] [address] [place], [address] PT Coag (PPP) [Time] 23.5 s High 11.7-14.9 [facility] Comment on above: Order Comment: 411.2 Performed By: #### L 300.3900 ####[facility] [address] [place], [address] Prothrombin Time w/INRon INR Coag (PPP) [Relative time] 3.2 {INR} Normal [facility] Comment on above: Order Comment: 411-2 Performed By: #### L 300.3900 ####[facility] [address] [place], [address] PT Coag (PPP) [Time] 32.6 s High 11.7-14.9 [facility] Comment on above: Order Comment: 411-2 Performed By: #### L 300.3900 ####[facility] [address] [place], [address] Prothrombin Time w/INRon INR Coag (PPP) [Relative time] 2.6 {INR} Normal [facility] Comment on above: Order Comment: 411-2 Performed By: #### L 300.3900 ####[facility] [address] [place], [address] PT Coag (PPP) [Time] 27.4 s High 11.7-14.9 [facility] Comment on above: Order Comment: 411-2 Performed By: #### L 300.3900 ####[facility] [address] [place], [place], [address] Office Visiton 09-13-2023 Follow-up visit [id number] Tamie Sifuentes 1950 M Date Provider Department Center 09/13/2023 [id number]-RAGOCCREBECCA BUCK [facility] URO None Family History Problem Relation Age of Onset Heart disease Father Cancer Mother Family Status - Relation Status Age at Father Mother Level of Service:95882 SC OFFICE/OUTPATIENT ESTABLISHED MOD MDM 30 MIN Reason for Visit and Comments: left flank pain [Other] - 8/10 pain when touched Normal [facility] Progress Noteon 09-13-2023 Progress Note Walt [...] and hyperlipidemia 02/15/22-OV Spear-vt, flomax 08/13/23-NEW PT (Cielo)-left flank pain. No fever chill, no heme. [...] Hydrocephalus, adult (CMS/HCC) (HCC) Kidney stone Neuropathy PROVIDER SCRIBE (ventriculoperitoneal) shunt status Past Surgical History: Procedure [...] 03/02/2022 CR (more content not included)... Normal [facility] CT ABDOMEN PELVIS WO IV CONT [facility] 09-07-2023 CT ABDOMEN PELVIS WO IV CONTRAST Patient Name: ANDREW SIFUENTES : 1950 Exam Date/Time: 09/06/2023 18:14 Procedure: CT ABDOMEN [...] kidney stone; pt has a hernia Normal [facility] 36on 08-29-2023 36 Lm on daughters vm t o advise them to call the number for the communication manager to get clarification, and to call back with further questions [facility] 36on 08-27-2023 36 Yes, they will need to call the number given to them. [facility] 36 Please advise [facility] 36on 08-21-2023 36 Name of caller: Zion holt Contact phone number: [phone] Relationship to Patient: patient Provider: MD Cielo Practice: [facility] Urology Chief Complaint/Reason [...] to reach out to call Maury Cedeño Mortgage Counselor at [facility] [phone] to get clarifications. CAC did reach back out to [facility] and advised and provider Maury's #. Please advise Best time of day caller can be reached: Any Patient advised that office/PCP has 24-48 business hours to return their call: N/A [facility] Laboratory - CoagulationOrde red By: Carlos Cavazos on 08-21-2023 INR Coag (Bld) [Relative time] 2.7 {INR} [facility] PT Coag (PPP) [Time] 28.9 s 11.7-14.9 [facility] Office Visiton 08-13-2023 Follow-up visit [id number] Tamie Sifuentes 1950 M Pasha Provider Department Center 08/13/2023 [id number]-YSWUZUREBECCA BUCK [facility] URO None Family History Problem Relation Age of Onset Heart disease Father Cancer Mother Family Status - Relation Status Age at Father Mother Level of Service:74623 SC OFFICE/OUTPATIENT NEW MODERATE MDM 45 MINUTES Reason for Visit and Comments: New Patient [542] - Bilateral flank pain, hx of kidney stones Nephrolithiasis [341184] [facility] Progress Noteon 08-13-2023 Progress Note [...] and hyperlipidemia 02/15/22-OV Spear-vt, flomax 08/13/23-NEW PT (Cielo)-left flank pain. No fever chill, no heme. 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 Normal [facility] No Panel InformationOrdered By: Carlos Cavazos on 08-03-2023 Levetiracetam (Keppra) Level 32.4 ug/mL 10.0-40.0 [facility] Comment on above: Performed at: [address] [id number] Director: Alpesh Vázquez MD, Phone: [phone] Basophil percentageOrdered B y: Carlos Cavazos on 07-20-2023 Chloride [Moles/Vol] 106 mmol/L 98-107 [facility] Glucose [Mass/Vol] 98 mg/dL 74-106 [facility] Hemoglobin (Bld) [Mass/Vol] 12.5 g/dL 13.0-16.5 [facility] Potassium [Moles/Vol] 4.3 mmol/L 3.5-5.1 [facility] Sodium [Moles/Vol] 135 mmol/L 136-145 [facility] WBC (Bld) [#/Vol] 13.0 10*3/uL 4.4-11.0 [facility] Determination of erythrocyte mean corpuscular volume (MCV)Ordered By: Carlos Cavazos on 07-20-2023 MCV (RBC) [Entitic vol] 86.2 fL 80-94 [facility] Erythrocyte distribution wid th ratioOrdered By: Carlos Cavazos on 07-20-2023 Erythrocyte distribution width (RBC) [Ratio] 15.3 % 11.6-14.6 [facility] Erythrocyte distribution wid th standard deviationOrdered By: Carlos Cavazos on 07-20-2023 Erythrocyte distribution width (RBC) [Entitic vol] 48.1 fL 35.1-43.9 [facility] Hematocrit Auto (Bld) [Volum e fraction]Ordered By: Carlos Cavazos on 07-20-2023 Hematocrit (Bld) [Volume fraction] 39.9 % 40-54 [facility] Laboratory - Chemistry and C hemistry - challengeOrdered By: Carlos Cavazos on 07-20-2023 CO2 [Moles/Vol] 24.0 mmol/L 21.0-32.0 [facility] Urea nitrogen/Creatinine [Mass ratio] 24.6 mg/mg 10-20 [facility] - Hematology and Cell countsOrdered By: Carlos Cavazos on 07-20-2023 MCH (RBC) [Entitic mass] 27.0 pg 27.0-32.0 [facility] MCHC (RBC) [Mass/Vol] 31.3 g/dL 32-36 [facility] Platelet mean volume (Bld) [Entitic vol] 10.7 fL 6.2-12.0 [facility] Platelets (Bld) [#/Vol] 260 10*3/uL 150-450 [facility] No Panel InformationOrdered By: Carlos Cavazos on 07-20-2023 Estimated GFR (MDRD) Amer 114 mL/min >60 [facility] Comment on above: GFR Calc Estimated GFR (MDRD) Non-Af Amer 94 mL/min >60 [facility] Comment on above: Non- GFR Calc RBC Auto (Bld) [#/Vol]Ordere d By: Carlos Cavazos on 07-20-2023 RBC (Bld) [#/Vol] 4.63 10*6/uL 4.6-6.2 [facility] Serum or plasma calcium oral urement (mass/volume)Ordered By: Carlos Cavazos on 07-20-2023 Calcium [Mass/Vol] 8.6 mg/dL 8.5-10.1 [facility] Serum or plasma creatinine m easurement (mass/volume)Ordered By: Carlos Cavazos on 07-20-2023 Creatinine [Mass/Vol] 0.85 mg/dL 0.70-1.30 [facility] Comment on above: The validity of the calculated GFR & GFRAA in patients over 70 years has not been determined. Clinical correlation is essential. Serum or plasma urea nitroge n measurement (mass/volume)Ordered By: Carlos Cavazos on 07-20-2023 Urea nitrogen [Mass/Vol] 21 mg/dL 7-18 [facility] Thin prep Papanicolaou smear with manual screeningOrdered By: Carlos Cavazos on 07-20-2023 Thin prep Papanicolaou smear with manual screening 5 5-15 [facility] Basophil percentageOrdered B y: Carlos Cavazos on 07-18-2023 Chloride [Moles/Vol] 102 mmol/L 98-107 [facility] Glucose [Mass/Vol] 96 mg/dL 74-106 [facility] Hemoglobin (Bld) [Mass/Vol] 12.3 g/dL 13.0-16.5 [facility] Potassium [Moles/Vol] 4.2 mmol/L 3.5-5.1 [facility] Sodium [Moles/Vol] 136 mmol/L 136-145 [facility] WBC (Bld) [#/Vol] 14.7 10*3/uL 4.4-11.0 [facility] Determination of erythrocyte mean corpuscular volume (MCV)Ordered By: Carlos Cavazos on 07-18-2023 MCV (RBC) [Entitic vol] 85.4 fL 80-94 [facility] Erythrocyte distribution wid th ratioOrdered By: Carlos Cavazos on 07-18-2023 Erythrocyte distribution width (RBC) [Ratio] 15.1 % 11.6-14.6 [facility] Erythrocyte distribution wid th standard deviationOrdered By: Carlos Cavazos on 07-18-2023 Erythrocyte distribution width (RBC) [Entitic vol] 47.3 fL 35.1-43.9 [facility] Hematocrit Auto (Bld) [Volum e fraction]Ordered By: Carlos Cavazos on 07-18-2023 Hematocrit (Bld) [Volume fraction] 39.3 % 40-54 [facility] Laboratory - Chemistry and C hemistry - challengeOrdered By: Carlos Cavazos on 07-18-2023 CO2 [Moles/Vol] 27.0 mmol/L 21.0-32.0 [facility] Urea nitrogen/Creatinine [Mass ratio] 24.4 mg/mg 10-20 [facility] Laboratory - Hematology and Cell countsOrdered By: Carlos Cavazos on 07-18-2023 MCH (RBC) [Entitic mass] 26.7 pg 27.0-32.0 [facility] MCHC (RBC) [Mass/Vol] 31.3 g/dL 32-36 [facility] Platelet mean volume (Bld) [Entitic vol] 10.3 fL 6.2-12.0 [facility] Platelets (Bld) [#/Vol] 288 10*3/uL 150-450 [facility] No Panel InformationOrdered By: Carlos Cavazos on 07-18-2023 Estimated GFR (MDRD) Amer 113 mL/min >60 [facility] Comment on above: GFR Calc Estimated GFR (MDRD) Non-Af Amer 93 mL/min >60 [facility] Comment on above: Non- GFR Calc RBC Auto (Bld) [#/Vol]Ordere d By: Carlos Cavazos on 07-18-2023 RBC (Bld) [#/Vol] 4.60 10*6/uL 4.6-6.2 [facility] Serum or plasma calcium oral urement (mass/volume)Ordered By: Carlos Cavazos on 07-18-2023 Calcium [Mass/Vol] 8.9 mg/dL 8.5-10.1 [facility] Serum or plasma creatinine m easurement (mass/volume)Ordered By: Carlos Cavazos on 07-18-2023 Creatinine [Mass/Vol] 0.86 mg/dL 0.70-1.30 [facility] Comment on above: The validity of the calculated GFR & GFRAA in patients over 70 years has not been determined. Clinical correlation is essential. Serum or plasma urea nitroge n measurement (mass/volume)Ordered By: Carlos Cavazos on 07-18-2023 Urea nitrogen [Mass/Vol] 21 mg/dL 7-18 [facility] Thin prep Papanicolaou smear with manual screeningOrdered By: Carlos Cavazos on 07-18-2023 Thin prep Papanicolaou smear with manual screening 7 5-15 [facility] Basophil percentageOrdered B y: Carlos Cavazos on 07-17-2023 Basophil percentage 0-5 SEEN /hpf 0-5 [facility] Bilirubin Test strip Ql (U)O rdered By: Carlos Cavazos on 07-17-2023 Bilirubin Ql (U) Negative Negative [facility] Calcium oxalate crystals det ection in urine sediment by light microscopyOrdered By: Carlos Cavazos on 07-17-2023 Calcium oxalate crystals LM Ql (Urine sed) 1+ /hpf [facility] Culture, urineOrdered By: Sharif Crouch on 07-17-2023 Bacteria identified Cx Nom (U) Positive [facility] Ketones Test strip Ql (U)Ord ered By: Carlos Cavazos on 07-17-2023 Ketones Ql (U) Negative Negative [facility] Mucus LM Ql (Urine sed)Order ed By: Carlos Cavazos on 07-17-2023 Mucus Ql (Urine sed) 0 SEEN /hpf [facility] Nitrite Test strip Ql (U)Ord ered By: Carlos Cavazos on 07-17-2023 Nitrite Ql (U) Negative Negative [facility] No Panel InformationOrdered By: Carlos Cavazos on 07-17-2023 Urine RBC 0 SEEN /hpf 0-5 [facility] Protein Test strip Ql (U)Ord ered By: Carlos Cavazos on 07-17-2023 Protein Ql (U) Negative Negative [facility] Squamous epithelial cells de tection in urine sediment by light microscopyOrdered By: Carlos Cavazos on 07-17-2023 Epithelial cells.squamous LM Ql (Urine sed) 0-5 SEEN /hpf 0-5 [facility] Urine blood detectionOrdered By: Carlos Cavazos on 07-17-2023 RBC Ql (U) Negative Negative [facility] Urine clarityOrdered By: Ted Cavazos on 07-17-2023 Clarity (U) Clear Clear [facility] Urine color determinationOrd ered By: Carlos Cavazos on 07-17-2023 Color (U) Yellow Yellow [facility] Urine glucose detectionOrder ed By: Carlos Cavazos on 07-17-2023 Glucose Ql (U) Normal mg/dl Normal [facility] Urine leukocyte esterase det ection by dipstickOrdered By: Carlos Cavazos on 07-17-2023 Leukocyte esterase Test strip Ql (U) 25 /ul Negative [facility] Urine pHOrdered By: Carlos flores on 07-17-2023 pH (U) 6.0 [pH] 5.0 - 8.0 [facility] Urine sediment bacteria coun t by microscopy (number/high power field)Ordered By: Carlos Cavazos on 07-17-2023 Bacteria LM.HPF (Urine sed) [#/Area] 0 /[HPF] None Seen [facility] Urine specific gravity measu rementOrdered By: Carlos Cavazos on 07-17-2023 Specific gravity (U) [Rel density] 1.020 1.002-1.030 [facility] Urine urobilinogen measureme ntOrdered By: Carlos Cavazos on 07-17-2023 Urobilinogen Ql (U) Normal mg/dl Normal [facility] Absolute lymphocyte countOrd ered By: Carlos Cavazos on 07-16-2023 Lymphocytes Auto (Unsp spec) [#/Vol] 6.02 10*3/uL 0.83-4.51 [facility] Automated lymphocyte count a s percentage of total leukocytesOrdered By: Carlos Cavazos on 07-16-2023 Lymphocytes/100 WBC Auto (Unsp spec) 49.1 % 19-41 [facility] Basophil percentageOrdered B y: Carlos Cavazos on 07-16-2023 Basophils/100 WBC (Bld) 0.6 % 0-1 [facility] Chloride [Moles/Vol] 105 mmol/L 98-107 [facility] Eosinophils/100 WBC (Bld) 2.0 % 0-5 [facility] Glucose [Mass/Vol] 93 mg/dL 74-106 [facility] Hemoglobin (Bld) [Mass/Vol] 12.1 g/dL 13.0-16.5 [facility] Monocytes/100 WBC (Bld) 5.3 % 0-10 [facility] Neutrophils (Bld) [#/Vol] 5.2 10*3/uL 2.0-7.7 [facility] Neutrophils/100 WBC (Bld) 42.8 % 47-70 [facility] Potassium [Moles/Vol] 4.3 mmol/L 3.5-5.1 [facility] Sodium [Moles/Vol] 138 mmol/L 136-145 [facility] WBC (Bld) [#/Vol] 12.3 10*3/uL 4.4-11.0 [facility] Blood manual differential co mment interpretation (narrative result)Ordered By: Carlos Cavazos on 07-16-2023 Manual differential comment Shemar (Bld) [Interp] SCANNED [facility] Determination of erythrocyte mean corpuscular volume (MCV)Ordered By: Carlos Cavazos on 07-16-2023 MCV (RBC) [Entitic vol] 86.8 fL 80-94 [facility] Erythrocyte distribution wid th ratioOrdered By: Carlos Cavazos on 07-16-2023 Erythrocyte distribution width (RBC) [Ratio] 15.3 % 11.6-14.6 [facility] Erythrocyte distribution wid th standard deviationOrdered By: Carlos Cavazos on 07-16-2023 Erythrocyte distribution width (RBC) [Entitic vol] 48.9 fL 35.1-43.9 [facility] Hematocrit Auto (Bld) [Volum e fraction]Ordered By: Carlos Cavazos on 07-16-2023 Hematocrit (Bld) [Volume fraction] 38.7 % 40-54 [facility] Immature granulocytes/100 WB C Auto (Bld)Ordered By: Carlos Cavazos on 07-16-2023 Immature granulocytes/100 WBC (Bld) 0.200 % 0.0-0.9 [facility] Comment on above: IG% - Immature Granu locytes (promyelocytes, myelocytes and metamyelocytes) > 1% indicates that a LEFT SHIFT is Present. Laboratory - Chemistry and C hemistry - challengeOrdered By: Carlos Cavazos on 07-16-2023 CO2 [Moles/Vol] 25.0 mmol/L 21.0-32.0 [facility] Urea nitrogen/Creatinine [Mass ratio] 21.0 mg/mg 10-20 [facility] Laboratory - CoagulationOrde red By: Carlos Cavazos on 07-16-2023 INR Coag (Bld) [Relative time] 2.4 {INR} [facility] PT Coag (PPP) [Time] 25.7 s 11.7-14.9 [facility] Laboratory - Hematology and Cell countsOrdered By: Carlos Cavazos on 07-16-2023 MCH (RBC) [Entitic mass] 27.1 pg 27.0-32.0 [facility] MCHC (RBC) [Mass/Vol] 31.3 g/dL 32-36 [facility] Nucleated RBC/100 WBC (Bld) [Ratio] 0 % 0-5 [facility] Platelet mean volume (Bld) [Entitic vol] 10.5 fL 6.2-12.0 [facility] Platelets (Bld) [#/Vol] 289 10*3/uL 150-450 [facility] No Panel InformationOrdered By: Carlos Cavazos on 07-16-2023 Estimated GFR (MDRD) Amer 106 mL/min >60 [facility] Comment on above: GFR Calc Estimated GFR (MDRD) Non-Af Amer 88 mL/min >60 [facility] Comment on above: Non- GFR Calc Reactive Lymphocytes 1+ [facility] RBC Auto (Bld) [#/Vol]Ordere d By: Carlos Cavazos on 07-16-2023 RBC (Bld) [#/Vol] 4.46 10*6/uL 4.6-6.2 [facility] Serum or plasma calcium oral urement (mass/volume)Ordered By: Carlos Cavazos on 07-16-2023 Calcium [Mass/Vol] 9.0 mg/dL 8.5-10.1 [facility] Serum or plasma creatinine m easurement (mass/volume)Ordered By: Carlos Cavazos on 07-16-2023 Creatinine [Mass/Vol] 0.90 mg/dL 0.70-1.30 [facility] Comment on above: The validity of the calculated GFR & GFRAA in patients over 70 years has not been determined. Clinical correlation is essential. Serum or plasma urea nitroge n measurement (mass/volume)Ordered By: Carlos Cavazos on 07-16-2023 Urea nitrogen [Mass/Vol] 19 mg/dL 7-18 [facility] Thin prep Papanicolaou smear with manual screeningOrdered By: Carlos Cavazos on 07-16-2023 Thin prep Papanicolaou smear with manual screening 8 5-15 [facility] Absolute lymphocyte countOrd ered By: Carlos Cavazos on 07-13-2023 Lymphocytes Auto (Unsp spec) [#/Vol] 5.44 10*3/uL 0.83-4.51 [facility] Automated lymphocyte count a s percentage of total leukocytesOrdered By: Carlos Cavazos on 07-13-2023 Lymphocytes/100 WBC Auto (Unsp spec) 47.3 % 19-41 [facility] Basophil percentageOrdered B y: Carlos Cavazos on 07-13-2023 Basophils/100 WBC (Bld) 0.4 % 0-1 [facility] Chloride [Moles/Vol] 107 mmol/L 98-107 [facility] Eosinophils/100 WBC (Bld) 1.7 % 0-5 [facility] Glucose [Mass/Vol] 96 mg/dL 74-106 [facility] Hemoglobin (Bld) [Mass/Vol] 13.5 g/dL 13.0-16.5 [facility] Monocytes/100 WBC (Bld) 4.3 % 0-10 [facility] Neutrophils (Bld) [#/Vol] 5.3 10*3/uL 2.0-7.7 [facility] Neutrophils/100 WBC (Bld) 46.0 % 47-70 [facility] Potassium [Moles/Vol] 4.0 mmol/L 3.5-5.1 [facility] Sodium [Moles/Vol] 139 mmol/L 136-145 [facility] WBC (Bld) [#/Vol] 11.5 10*3/uL 4.4-11.0 [facility] Determination of erythrocyte mean corpuscular volume (MCV)Ordered By: Carlos Cavazos on 07-13-2023 MCV (RBC) [Entitic vol] 86.1 fL 80-94 [facility] Erythrocyte distribution wid th ratioOrdered By: Carlos Cavazos on 07-13-2023 Erythrocyte distribution width (RBC) [Ratio] 15.2 % 11.6-14.6 [facility] Erythrocyte distribution wid th standard deviationOrdered By: Carlos Cavazos on 07-13-2023 Erythrocyte distribution width (RBC) [Entitic vol] 48.0 fL 35.1-43.9 [facility] Hematocrit Auto (Bld) [Volum e fraction]Ordered By: Carlos Cavazos on 07-13-2023 Hematocrit (Bld) [Volume fraction] 42.2 % 40-54 [facility] Immature granulocytes/100 WB C Auto (Bld)Ordered By: Carlos Cavazos on 07-13-2023 Immature granulocytes/100 WBC (Bld) 0.300 % 0.0-0.9 [facility] Comment on above: IG% - Immature Granu locytes (promyelocytes, myelocytes and metamyelocytes) > 1% indicates that a LEFT SHIFT is Present. Laboratory - Chemistry and C hemistry - challengeOrdered By: Carlos Cavazos on 07-13-2023 CO2 [Moles/Vol] 26.0 mmol/L 21.0-32.0 [facility] Urea nitrogen/Creatinine [Mass ratio] 21.8 mg/mg 10-20 [facility] Laboratory - Hematology and Cell countsOrdered By: Carlos Cavazos on 07-13-2023 MCH (RBC) [Entitic mass] 27.6 pg 27.0-32.0 [facility] MCHC (RBC) [Mass/Vol] 32.0 g/dL 32-36 [facility] Nucleated RBC/100 WBC (Bld) [Ratio] 0 % 0-5 [facility] Platelet mean volume (Bld) [Entitic vol] 10.1 fL 6.2-12.0 [facility] Platelets (Bld) [#/Vol] 279 10*3/uL 150-450 [facility] No Panel InformationOrdered By: Carlos Cavazos on 07-13-2023 Estimated GFR (MDRD) Amer 118 mL/min >60 [facility] Comment on above: GFR Calc Estimated GFR (MDRD) Non-Af Amer 98 mL/min >60 [facility] Comment on above: Non- GFR Calc Levetiracetam (Keppra) Level 25.5 ug/mL 10.0-40.0 [facility] Comment on above: Performed at: [facility] [address] [id number] Director: Alpesh Vázquez MD, Phone: [phone] RBC Auto (Bld) [#/Vol]Ordere d By: Carlos Cavazos on 07-13-2023 RBC (Bld) [#/Vol] 4.90 10*6/uL 4.6-6.2 [facility] Serum or plasma calcium oral urement (mass/volume)Ordered By: Carlos Cavazos on 07-13-2023 Calcium [Mass/Vol] 9.1 mg/dL 8.5-10.1 [facility] Serum or plasma creatinine m easurement (mass/volume)Ordered By: Carlos Cavaozs on 07-13-2023 Creatinine [Mass/Vol] 0.82 mg/dL 0.70-1.30 [facility] Comment on above: The validity of the calculated GFR & GFRAA in patients over 70 years has not been determined. Clinical correlation is essential. Serum or plasma urea nitroge n measurement (mass/volume)Ordered By: Carlos Cavazos on 07-13-2023 Urea nitrogen [Mass/Vol] 18 mg/dL 7-18 [facility] Thin prep Papanicolaou smear with manual screeningOrdered By: Carlos Cavazos on 07-13-2023 Thin prep Papanicolaou smear with manual screening 6 5-15 [facility] No Panel InformationOrdered By: Carlos Cavazos on 07-12-2023 Valproic Acid (Depakene) Level < 3 ug/mL 50-100 [facility] Laboratory - CoagulationOrde red By: Carlos Cavazos on 07-05-2023 INR Coag (Bld) [Relative time] 2.4 {INR} [facility] PT Coag (PPP) [Time] 26.3 s 11.7-14.9 [facility] Laboratory - CoagulationOrde red By: Carlos Cavazos on 07-02-2023 INR Coag (Bld) [Relative time] 1.5 {INR} [facility] PT Coag (PPP) [Time] 18.5 s 11.7-14.9 [facility] Laboratory - CoagulationOrde red By: Carlos Cavazos on 06-28-2023 INR Coag (Bld) [Relative time] 1.7 {INR} [facility] PT Coag (PPP) [Time] 20.5 s 11.7-14.9 [facility] 36on 06-25-2023 36 [facility] christiano called in stating appt scheduled 07/10/23 Guy has to be made further out, pt being transported by cot. Changed appt to 08/13/23 per [facility] only avail time for transport, first avail with DR Buck at 10:00 AM. [facility] Laboratory - CoagulationOrde red By: Carlos Cavazos on 06-25-2023 INR Coag (Bld) [Relative time] 3.8 {INR} [facility] PT Coag (PPP) [Time] 38.2 s 11.7-14.9 [facility] Laboratory - CoagulationOrde red By: Carlos Cavazos on 06-21-2023 INR Coag (Bld) [Relative time] 3.2 {INR} [facility] PT Coag (PPP) [Time] 32.9 s 11.7-14.9 [facility] No Panel InformationOrdered By: Carlos Cavazos on 06-13-2023 Valproic Acid (Depakene) Level < 3 ug/mL 50-100 [facility] - CoagulationOrde red By: Carlos Cavazos on 06-06-2023 PT Coag (PPP) [Time] 30.5 s 11.7-14.9 [facility] Platelet poor plasma interna tional normalized ratio (INR)Ordered By: Carlos Cavazos on 06-06-2023 INR Coag (PPP) [Relative time] 2.9 {INR} [facility] International normalized rat io (INR) calculationOrdered By: Carlos Cavazos on 05-23-2023 INR Coag (PPP) [Relative time] 2.6 {INR} [facility] Laboratory - CoagulationOrde red By: Carlos Cavazos on 05-23-2023 PT Coag (PPP) [Time] 27.7 s 11.7-14.9 [facility] Laboratory - CoagulationOrde red By: Carlos Cavazos on 05-09-2023 PT Coag (PPP) [Time] 24.1 s 11.7-14.9 [facility] Whole blood international no rmalized ratio (INR)Ordered By: Carlos Cavazos on 05-09-2023 INR Coag (Bld) [Relative time] 2.1 {INR} [facility] - CoagulationOrde red By: Carlos Cavazos on 04-23-2023 PT Coag (PPP) [Time] 26.4 s 11.7-14.9 [facility] Whole blood international no rmalized ratio (INR)Ordered By: Carlos Cavazos on 04-23-2023 INR Coag (Bld) [Relative time] 2.4 {INR} [facility] INR in Blood by Coagulation assayOrdered By: Carlos Cavazos on 04-09-2023 INR Coag (Bld) [Relative time] 2.1 {INR} [facility] - CoagulationOrde red By: Carlos Cavazos on 04-09-2023 PT Coag (PPP) [Time] 23.9 s 11.7-14.9 [facility] INR in Blood by Coagulation assayOrdered By: Carlos Cavazos on 04-02-2023 INR Coag (Bld) [Relative time] 2.2 {INR} [facility] - CoagulationOrde red By: Carlos Cavazos on 04-02-2023 PT Coag (PPP) [Time] 24.5 s 11.7-14.9 [facility] INR in Blood by Coagulation assayOrdered By: Carlos Cavazos on 03-26-2023 INR Coag (Bld) [Relative time] 1.7 {INR} [facility] - CoagulationOrde red By: Carlos Cavazos on 03-26-2023 PT Coag (PPP) [Time] 19.9 s 11.7-14.9 [facility] INR in Blood by Coagulation assayOrdered By: Carlos Cavazos on 03-22-2023 INR Coag (Bld) [Relative time] 1.3 {INR} [facility] - CoagulationOrde red By: Carlos Cavazos on 03-22-2023 PT Coag (PPP) [Time] 16.4 s 11.7-14.9 [facility] INR in Blood by Coagulation assayOrdered By: Carlos Cavazos on 03-08-2023 INR Coag (Bld) [Relative time] 2.0 {INR} [facility] - CoagulationOrde red By: Carlos Cavazos on 03-08-2023 PT Coag (PPP) [Time] 22.5 s 11.7-14.9 [facility] Laboratory - CoagulationOrde red By: Carlos Cavazos on 02-22-2023 INR Coag (Bld) [Relative time] 2.2 {INR} [facility] Comment on above: Critical Value > 4.0 Whole blood prothrombin time Ordered By: Carlos Cavazos on 02-22-2023 PT Coag (Bld) [Time] 24.0 s 11.7-14.9 [facility] INR in Blood by Coagulation assayOrdered By: Cliff Bruner on 02-15-2023 INR Coag (Bld) [Relative time] 2.0 {INR} [facility] - CoagulationOrde red By: Cliff Bruner on 02-15-2023 PT Coag (PPP) [Time] 22.8 s 11.7-14.9 [facility] INR in Blood by Coagulation assayOrdered By: Carlos Cavazos on 02-08-2023 INR Coag (Bld) [Relative time] 2.1 {INR} [facility] - CoagulationOrde red By: Carlos Cavazos on 02-08-2023 PT Coag (PPP) [Time] 23.5 s 11.7-14.9 [facility] INR in Blood by Coagulation assayOrdered By: Carlos Cavazos on 01-31-2023 INR Coag (Bld) [Relative time] 2.0 {INR} [facility] - CoagulationOrde red By: Carlos Cavazos on 01-31-2023 PT Coag (PPP) [Time] 22.4 s 11.7-14.9 [facility] Laboratory - CoagulationOrde red By: Carlos Cavazos on 01-29-2023 INR Coag (Bld) [Relative time] 1.8 {INR} [facility] Comment on above: Critical Value > 4.0 Whole blood prothrombin time Ordered By: Carlos Cavazos on 01-29-2023 PT Coag (Bld) [Time] 19.9 s 11.7-14.9 [facility] INR in Blood by Coagulation assayOrdered By: Carlos Cavazos on 01-26-2023 INR Coag (Bld) [Relative time] 1.5 {INR} [facility] - CoagulationOrde red By: Carlos Cavazos on 01-26-2023 PT Coag (PPP) [Time] 18.3 s 11.7-14.9 [facility] INR in Blood by Coagulation assayOrdered By: Carlos Cavazos on 01-24-2023 INR Coag (Bld) [Relative time] 1.3 {INR} [facility] - CoagulationOrde red By: Carlos Cavazos on 01-24-2023 PT Coag (PPP) [Time] 16.2 s 11.7-14.9 [facility] Basophil percentageOrdered B y: Carlos Cavazos on 01-22-2023 Basophil percentage 0 SEEN /hpf 0-5 [facility] Bilirubin Test strip Ql (U)O rdered By: Carlos Cavazos on 01-22-2023 Bilirubin Ql (U) Negative Negative [facility] Calcium oxalate crystals det ection in urine sediment by light microscopyOrdered By: Carlos Cavazos on 01-22-2023 Calcium oxalate crystals LM Ql (Urine sed) 1+ /hpf [facility] Culture, urineOrdered By: Sharif Crouch on 01-22-2023 Bacteria identified Cx Nom (U) Positive [facility] Ketones Test strip Ql (U)Ord ered By: Carlos Cavazos on 01-22-2023 Ketones Ql (U) Negative Negative [facility] Mucus LM Ql (Urine sed)Order ed By: Carlos Cavazos on 01-22-2023 Mucus Ql (Urine sed) 1+ /hpf [facility] Nitrite Test strip Ql (U)Ord ered By: Carlos Cavazos on 01-22-2023 Nitrite Ql (U) Negative Negative [facility] Protein Test strip Ql (U)Ord ered By: Carlos Cavazos on 01-22-2023 Protein Ql (U) Negative Negative [facility] Squamous epithelial cells de tection in urine sediment by light microscopyOrdered By: Carlos Cavazos on 01-22-2023 Epithelial cells.squamous LM Ql (Urine sed) 0 SEEN /hpf 0-5 [facility] Urine blood detectionOrdered By: Carlos Cavazos on 01-22-2023 RBC Ql (U) Negative Negative [facility] RBC Ql (U) 0 SEEN /hpf 0-5 [facility] Urine clarityOrdered By: Ted Cavazos on 01-22-2023 Clarity (U) Sl. Cloudy Clear [facility] Urine color determinationOrd ered By: Carlos Cavazos on 01-22-2023 Color (U) Yellow Yellow [facility] Urine glucose detectionOrder ed By: Carlos Cavazos on 01-22-2023 Glucose Ql (U) Normal mg/dl Normal [facility] Urine leukocyte esterase det ection by dipstickOrdered By: Carlos Cavazos on 01-22-2023 Leukocyte esterase Test strip Ql (U) Negative Negative [facility] Urine pHOrdered By: Carlos flores on 01-22-2023 pH (U) 5.0 [pH] 5.0 - 8.0 [facility] Urine sediment bacteria coun t by microscopy (number/high power field)Ordered By: Carlos Cavazos on 01-22-2023 Bacteria LM.HPF (Urine sed) [#/Area] 2 /[HPF] None Seen [facility] Urine specific gravity measu rementOrdered By: Carlos Cavazos on 01-22-2023 Specific gravity (U) [Rel density] 1.025 1.002-1.030 [facility] Urobilinogen Auto test strip Ql (U)Ordered By: Carlos Cavazos on 01-22-2023 Urobilinogen Ql (U) Normal mg/dl Normal [facility] INR in Blood by Coagulation assayOrdered By: Carlos Cavazos on 01-10-2023 INR Coag (Bld) [Relative time] 2.0 {INR} [facility] - CoagulationOrde red By: Carlos Cavazos on 01-10-2023 PT Coag (PPP) [Time] 22.6 s 11.7-14.9 [facility] INR in Blood by Coagulation assayOrdered By: Carlos Cavazos on 12-27-2022 INR Coag (Bld) [Relative time] 2.1 {INR} [facility] - CoagulationOrde red By: Carlos Cavazos on 12-27-2022 PT Coag (PPP) [Time] 24.1 s 11.7-14.9 [facility] INR in Blood by Coagulation assayOrdered By: Carlos Cavazos on 12-21-2022 INR Coag (Bld) [Relative time] 2.4 {INR} [facility] - CoagulationOrde red By: Carlos Cavazos on 12-21-2022 PT Coag (PPP) [Time] 26.7 s 11.7-14.9 [facility] - CoagulationOrde red By: Carlos Cavazos on 12-14-2022 INR Coag (Bld) [Relative time] 2.3 {INR} [facility] Comment on above: Critical Value > 4.0 Whole blood prothrombin time Ordered By: Carlos Cavazos on 12-14-2022 PT Coag (Bld) [Time] 25.2 s 11.7-14.9 [facility] - CoagulationOrde red By: Carlos Cavazos on 12-07-2022 INR Coag (Bld) [Relative time] 2.5 {INR} [facility] Comment on above: Critical Value > 4.0 Whole blood prothrombin time Ordered By: Carlos Cavazos on 12-07-2022 PT Coag (Bld) [Time] 26.9 s 11.7-14.9 [facility] Amorphous sediment detection in urine sediment by light microscopyOrdered By: Carlos Cavazos on 11-24-2022 Amorphous sediment LM Ql (Urine sed) 1+ [facility] Basophil percentageOrdered B y: Carlos Cavazos on 11-24-2022 Basophil percentage 0 SEEN /hpf 0-5 [facility] Bilirubin [Mass/Vol] 0.30 mg/dL 0.20-1.00 [facility] Comment on above: For patients on eltr ombopag therapy, use of Dimension [place] TBIL is not recommended. Chloride [Moles/Vol] 107 mmol/L 98-107 [facility] Glucose [Mass/Vol] 95 mg/dL 74-106 [facility] Potassium [Moles/Vol] 4.2 mmol/L 3.5-5.1 [facility] Protein [Mass/Vol] 6.9 g/dL 6.4-8.2 [facility] Sodium [Moles/Vol] 138 mmol/L 136-145 [facility] WBC (Bld) [#/Vol] 10.4 10*3/uL 4.4-11.0 [facility] Bilirubin Test strip Ql (U)O rdered By: Carlos Cavazos on 11-24-2022 Bilirubin Ql (U) Negative Negative [facility] Blood erythrocytes count (nu mber/volume)Ordered By: Carlos Cavazos on 11-24-2022 RBC (Bld) [#/Vol] 4.44 10*6/uL 4.6-6.2 [facility] Blood hemoglobin measurement (mass/volume)Ordered By: Carlos Cavazos on 11-24-2022 Hemoglobin (Bld) [Mass/Vol] 11.8 g/dL 13.0-16.5 [facility] Blood platelet mean volumeOr dered By: Carlos Cavazos on 11-24-2022 Platelet mean volume (Bld) [Entitic vol] 9.7 fL 6.2-12.0 [facility] Calcium oxalate crystals det ection in urine sediment by light microscopyOrdered By: Carlos Cavazos on 11-24-2022 Calcium oxalate crystals LM Ql (Urine sed) RARE /hpf [facility] Culture, urineOrdered By: Sharif Crouch on 11-24-2022 Bacteria identified Cx Nom (U) Positive [facility] Determination of erythrocyte mean corpuscular volume (MCV)Ordered By: Carlos Cavazos on 11-24-2022 MCV (RBC) [Entitic vol] 84.7 fL 80-94 [facility] Hematocrit Auto (Bld) [Volum e fraction]Ordered By: Carlos Cavazos on 11-24-2022 Hematocrit (Bld) [Volume fraction] 37.6 % 40-54 [facility] Ketones Test strip Ql (U)Ord ered By: Carlos Cavazos on 11-24-2022 Ketones Ql (U) Negative Negative [facility] - Chemistry and C hemistry - challengeOrdered By: Carlos Cavazos on 11-24-2022 ALP [Catalytic activity/Vol] 103 U/L 45-117 [facility] ALT [Catalytic activity/Vol] 14 U/L 16-61 [facility] CO2 [Moles/Vol] 26.0 mmol/L 21.0-32.0 [facility] Globulin (S) [Mass/Vol] 4.0 g/dL 2.2-4.2 [facility] Urea nitrogen/Creatinine [Mass ratio] 24.1 mg/mg 10-20 [facility] - Hematology and Cell countsOrdered By: Carlos Cavazos on 11-24-2022 Erythrocyte distribution width (RBC) [Entitic vol] 49.4 fL 35.1-43.9 [facility] Erythrocyte distribution width (RBC) [Ratio] 16.0 % 11.6-14.6 [facility] MCH (RBC) [Entitic mass] 26.6 pg 27.0-32.0 [facility] MCHC Auto (RBC) [Mass/Vol]Or dered By: Carlos Cavazos on 11-24-2022 MCHC (RBC) [Mass/Vol] 31.4 g/dL 32-36 [facility] Mucus LM Ql (Urine sed)Order ed By: Carlos Cavazos on 11-24-2022 Mucus Ql (Urine sed) 0 SEEN /hpf [facility] Nitrite Test strip Ql (U)Ord ered By: Carlos Cavazos on 11-24-2022 Nitrite Ql (U) Negative Negative [facility] No Panel InformationOrdered By: Carlos Cavazos on 11-24-2022 Estimated GFR (MDRD) Amer 118 mL/min >60 [facility] Comment on above: GFR Calc Estimated GFR (MDRD) Non-Af Amer 97 mL/min >60 [facility] Comment on above: Non- GFR Calc Platelets bldOrdered By: Ted Cavazos on 11-24-2022 Platelets (Bld) [#/Vol] 309 10*3/uL 150-450 [facility] Protein Test strip Ql (U)Ord ered By: Carlos Cavazos on 11-24-2022 Protein Ql (U) Negative Negative [facility] Serum or plasma albumin oral urement (mass/volume)Ordered By: Carlos Cavazos on 11-24-2022 Albumin [Mass/Vol] 2.9 g/dL 3.2-5.0 [facility] Serum or plasma albumin/glob ulin mass ratioOrdered By: Carlos Cavazos on 11-24-2022 Albumin/Globulin [Mass ratio] 0.7 {ratio} 0.9-2.4 [facility] Serum or plasma calcium oral urement (mass/volume)Ordered By: Carlos Cavazos on 11-24-2022 Calcium [Mass/Vol] 8.7 mg/dL 8.5-10.1 [facility] Serum or plasma creatinine m easurement (mass/volume)Ordered By: Carlos Cavazos on 11-24-2022 Creatinine [Mass/Vol] 0.83 mg/dL 0.70-1.30 [facility] Comment on above: The validity of the calculated GFR & GFRAA in patients over 70 years has not been determined. Clinical correlation is essential. Serum or plasma urea nitroge n measurement (mass/volume)Ordered By: Carlos Cavazos on 11-24-2022 Urea nitrogen [Mass/Vol] 20 mg/dL 7-18 [facility] Squamous epithelial cells de tection in urine sediment by light microscopyOrdered By: Carlos Cavazos on 11-24-2022 Epithelial cells.squamous LM Ql (Urine sed) 0 SEEN /hpf 0-5 [facility] Thin prep Papanicolaou smear with manual screeningOrdered By: Carlos Cavazos on 11-24-2022 Thin prep Papanicolaou smear with manual screening 10 U/L 15-37 [facility] Thin prep Papanicolaou smear with manual screening 5 5-15 [facility] Urine blood detectionOrdered By: Carlos Cavazos on 11-24-2022 RBC Ql (U) Negative Negative [facility] RBC Ql (U) 0 SEEN /hpf 0-5 [facility] Urine clarityOrdered By: Ted Cavazos on 11-24-2022 Clarity (U) Clear Clear [facility] Urine color determinationOrd ered By: Carlos Cavazos on 11-24-2022 Color (U) Yellow Yellow [facility] Urine glucose detectionOrder ed By: Carlos Cavazos on 11-24-2022 Glucose Ql (U) Normal mg/dl Normal [facility] Urine leukocyte esterase det ection by dipstickOrdered By: Carlos Cavazos on 11-24-2022 Leukocyte esterase Test strip Ql (U) Negative Negative [facility] Urine pHOrdered By: Carlos flores on 11-24-2022 pH (U) 7.0 [pH] 5.0 - 8.0 [facility] Urine sediment bacteria coun t by microscopy (number/high power field)Ordered By: Carlos Cavazos on 11-24-2022 Bacteria LM.HPF (Urine sed) [#/Area] 0 /[HPF] None Seen [facility] Urine specific gravity measu rementOrdered By: Carlos Cavazos on 11-24-2022 Specific gravity (U) [Rel density] 1.010 1.002-1.030 [facility] Urobilinogen Auto test strip Ql (U)Ordered By: Carlos Cavazos on 11-24-2022 Urobilinogen Ql (U) Normal mg/dl Normal [facility] - CoagulationOrde red By: Carlos Cavazos on 11-23-2022 INR Coag (Bld) [Relative time] 2.2 {INR} [facility] Comment on above: Critical Value > 4.0 Whole blood prothrombin time Ordered By: Carlos Cavazos on 11-23-2022 PT Coag (Bld) [Time] 24.5 s 11.7-14.9 [facility] Basophil percentageOrdered B y: Carlos Cavazos on 11-22-2022 Chloride [Moles/Vol] 105 mmol/L 98-107 [facility] Glucose [Mass/Vol] 91 mg/dL 74-106 [facility] Potassium [Moles/Vol] 4.1 mmol/L 3.5-5.1 [facility] Sodium [Moles/Vol] 138 mmol/L 136-145 [facility] WBC (Bld) [#/Vol] 12.0 10*3/uL 4.4-11.0 [facility] Blood erythrocytes count (nu mber/volume)Ordered By: Carlos Cavazos on 11-22-2022 RBC (Bld) [#/Vol] 4.65 10*6/uL 4.6-6.2 [facility] Blood hemoglobin measurement (mass/volume)Ordered By: Carlos Cavazos on 11-22-2022 Hemoglobin (Bld) [Mass/Vol] 12.4 g/dL 13.0-16.5 [facility] Blood platelet mean volumeOr dered By: Carlos Cavazos on 11-22-2022 Platelet mean volume (Bld) [Entitic vol] 10.3 fL 6.2-12.0 [facility] Determination of erythrocyte mean corpuscular volume (MCV)Ordered By: Carlos Cavazos on 11-22-2022 MCV (RBC) [Entitic vol] 86.0 fL 80-94 [facility] Hematocrit Auto (Bld) [Volum e fraction]Ordered By: Carlos Cavazos on 11-22-2022 Hematocrit (Bld) [Volume fraction] 40.0 % 40-54 [facility] - Chemistry and C hemistry - challengeOrdered By: Carlos Cavazos on 11-22-2022 CO2 [Moles/Vol] 25.0 mmol/L 21.0-32.0 [facility] Urea nitrogen/Creatinine [Mass ratio] 23.6 mg/mg 10-20 [facility] - Hematology and Cell countsOrdered By: Carlos Cavazos on 11-22-2022 Erythrocyte distribution width (RBC) [Entitic vol] 50.0 fL 35.1-43.9 [facility] Erythrocyte distribution width (RBC) [Ratio] 15.9 % 11.6-14.6 [facility] MCH (RBC) [Entitic mass] 26.7 pg 27.0-32.0 [facility] MCHC Auto (RBC) [Mass/Vol]Or dered By: Carlos Cavazos on 11-22-2022 MCHC (RBC) [Mass/Vol] 31.0 g/dL 32-36 [facility] No Panel InformationOrdered By: Carlos Cavazos on 11-22-2022 Estimated GFR (MDRD) Amer 115 mL/min >60 [facility] Comment on above: GFR Calc Estimated GFR (MDRD) Non-Af Amer 95 mL/min >60 [facility] Comment on above: Non- GFR Calc Platelets bldOrdered By: Ted Cavazos on 11-22-2022 Platelets (Bld) [#/Vol] 320 10*3/uL 150-450 [facility] Serum or plasma calcium oral urement (mass/volume)Ordered By: Carlos Cavazos on 11-22-2022 Calcium [Mass/Vol] 8.7 mg/dL 8.5-10.1 [facility] Serum or plasma creatinine m easurement (mass/volume)Ordered By: Carlos Cavazos on 11-22-2022 Creatinine [Mass/Vol] 0.85 mg/dL 0.70-1.30 [facility] Comment on above: The validity of the calculated GFR & GFRAA in patients over 70 years has not been determined. Clinical correlation is essential. Serum or plasma urea nitroge n measurement (mass/volume)Ordered By: Carlos Cavazos on 11-22-2022 Urea nitrogen [Mass/Vol] 20 mg/dL 11-21 [facility] Thin prep Papanicolaou smear with manual screeningOrdered By: Carlos Cavazos on 11-22-2022 Thin prep Papanicolaou smear with manual screening 8 - [facility] - CoagulationOrde red By: Carlos Cavazos on 11-09-2022 INR Coag (Bld) [Relative time] 2.1 {INR} [facility] Comment on above: Critical Value > 4.0 Whole blood prothrombin time Ordered By: Carlos Cavazos on 11-09-2022 PT Coag (Bld) [Time] 22.6 s 11.7-14.9 [facility] - CoagulationOrde red By: Carlos Cavazos on 10-26-2022 INR Coag (Bld) [Relative time] 2.6 {INR} [facility] Comment on above: Critical Value > 4.0 Whole blood prothrombin time Ordered By: Carlos Cavazos on 10-26-2022 PT Coag (Bld) [Time] 28.5 s 11.7-14.9 [facility] - CoagulationOrde red By: Carlos Cavazos on 10-12-2022 INR Coag (Bld) [Relative time] 2.4 {INR} [facility] Comment on above: Critical Value > 4.0 Whole blood prothrombin time Ordered By: Carlos Cavazos on 10-12-2022 PT Coag (Bld) [Time] 26.4 s 11.7-14.9 [facility] - CoagulationOrde red By: Carlos Cavazos on 10-05-2022 INR Coag (Bld) [Relative time] 2.6 {INR} [facility] Comment on above: Critical Value > 4.0 Whole blood prothrombin time Ordered By: Carlos Cavazos on 10-05-2022 PT Coag (Bld) [Time] 28.0 s 11.7-14.9 [facility] - CoagulationOrde red By: Carlos Cavazos on 09-28-2022 INR Coag (Bld) [Relative time] 2.7 {INR} [facility] Comment on above: Critical Value > 4.0 Whole blood prothrombin time Ordered By: Carlos Cavazos on 09-28-2022 PT Coag (Bld) [Time] 28.9 s 11.7-14.9 [facility] - CoagulationOrde red By: Carlos Cavazos on 09-14-2022 INR Coag (Bld) [Relative time] 2.5 {INR} [facility] Comment on above: Critical Value > 4.0 Whole blood prothrombin time Ordered By: Carlos Cavazos on 09-14-2022 PT Coag (Bld) [Time] 27.4 s 11.7-14.9 [facility] - CoagulationOrde red By: Carlos Cavazos on 08-31-2022 INR Coag (Bld) [Relative time] 2.3 {INR} [facility] Comment on above: Critical Value > 4.0 Whole blood prothrombin time Ordered By: Carlos Cavazos on 08-31-2022 PT Coag (Bld) [Time] 25.4 s 11.7-14.9 [facility] Basophil percentageOrdered B y: Carlos Cavazos on 08-23-2022 Chloride [Moles/Vol] 108 mmol/L 98-107 [facility] Glucose [Mass/Vol] 86 mg/dL 74-106 [facility] Potassium [Moles/Vol] 4.3 mmol/L 3.5-5.1 [facility] Sodium [Moles/Vol] 136 mmol/L 136-145 [facility] WBC (Bld) [#/Vol] 10.0 10*3/uL 4.4-11.0 [facility] Blood erythrocytes count (nu mber/volume)Ordered By: Carlos Cavazos on 08-23-2022 RBC (Bld) [#/Vol] 4.77 10*6/uL 4.6-6.2 [facility] Blood hemoglobin measurement (mass/volume)Ordered By: Carlos Cavazos on 08-23-2022 Hemoglobin (Bld) [Mass/Vol] 12.5 g/dL 13.0-16.5 [facility] Blood platelet mean volumeOr dered By: Carlos Cavazos on 08-23-2022 Platelet mean volume (Bld) [Entitic vol] 11.0 fL 6.2-12.0 [facility] Determination of erythrocyte mean corpuscular volume (MCV)Ordered By: Carlos Cavazos on 08-23-2022 MCV (RBC) [Entitic vol] 84.3 fL 80-94 [facility] Hematocrit Auto (Bld) [Volum e fraction]Ordered By: Carlos Cavazos on 08-23-2022 Hematocrit (Bld) [Volume fraction] 40.2 % 40-54 [facility] - Chemistry and C hemistry - challengeOrdered By: Carlos Cavazos on 08-23-2022 CO2 [Moles/Vol] 24.0 mmol/L 21.0-32.0 [facility] Urea nitrogen/Creatinine [Mass ratio] 22.8 mg/mg 10-20 [facility] - Hematology and Cell countsOrdered By: Carlos Cavazos on 08-23-2022 Erythrocyte distribution width (RBC) [Entitic vol] 49.3 fL 35.1-43.9 [facility] Erythrocyte distribution width (RBC) [Ratio] 16.0 % 11.6-14.6 [facility] MCH (RBC) [Entitic mass] 26.2 pg 27.0-32.0 [facility] MCHC Auto (RBC) [Mass/Vol]Or dered By: Carlos Cavazos on 08-23-2022 MCHC (RBC) [Mass/Vol] 31.1 g/dL 32-36 [facility] No Panel InformationOrdered By: Carlos Cavazos on 08-23-2022 Estimated GFR (MDRD) Amer 134 mL/min >60 [facility] Comment on above: GFR Calc Estimated GFR (MDRD) Non-Af Amer 110 mL/min >60 [facility] Comment on above: Non- GFR Calc Platelets bldOrdered By: Ted Cavazos on 08-23-2022 Platelets (Bld) [#/Vol] 268 10*3/uL 150-450 [facility] Serum or plasma calcium oral urement (mass/volume)Ordered By: Carlos Cavazos on 08-23-2022 Calcium [Mass/Vol] 9.1 mg/dL 8.5-10.1 [facility] Serum or plasma creatinine m easurement (mass/volume)Ordered By: Carlos Cavazos on 08-23-2022 Creatinine [Mass/Vol] 0.74 mg/dL 0.70-1.30 [facility] Comment on above: The validity of the calculated GFR & GFRAA in patients over 70 years has not been determined. Clinical correlation is essential. Serum or plasma urea nitroge n measurement (mass/volume)Ordered By: Carlos Cavazos on 08-23-2022 Urea nitrogen [Mass/Vol] 17 mg/dL 7-18 [facility] Thin prep Papanicolaou smear with manual screeningOrdered By: Carlos Cavazos on 08-23-2022 Thin prep Papanicolaou smear with manual screening 4 - [facility] - CoagulationOrde red By: Carlos Cavazos on 08-17-2022 INR Coag (Bld) [Relative time] 2.8 {INR} [facility] Comment on above: Critical Value > 4.0 Whole blood prothrombin time Ordered By: Carlos Cavazos on 08-17-2022 PT Coag (Bld) [Time] 29.6 s 11.7-14.9 [facility] - CoagulationOrde red By: Carlos Cavazos on 08-14-2022 INR Coag (Bld) [Relative time] 3.9 {INR} [facility] Comment on above: Critical Value > 4.0 Whole blood prothrombin time Ordered By: Carlos Cavazos on 08-14-2022 PT Coag (Bld) [Time] 40.6 s 11.7-14.9 [facility] - CoagulationOrde red By: Carlos Cavazos on 07-31-2022 INR Coag (Bld) [Relative time] 2.5 {INR} [facility] Comment on above: Critical Value > 4.0 Whole blood prothrombin time Ordered By: Carlos Cavazos on 07-31-2022 PT Coag (Bld) [Time] 26.8 s 11.7-14.9 [facility] INR in Blood by Coagulation assayOrdered By: Carlos Cavazos on 07-24-2022 INR Coag (Bld) [Relative time] 2.3 {INR} [facility] - CoagulationOrde red By: Carlos Cavazos on 07-24-2022 PT Coag (PPP) [Time] 24.7 s 11.7-14.9 [facility] - CoagulationOrde red By: Carlos Cavazos on 07-20-2022 INR Coag (Bld) [Relative time] 1.9 {INR} [facility] Comment on above: Critical Value > 4.0 Whole blood prothrombin time Ordered By: Carlos Cavazos on 07-20-2022 PT Coag (Bld) [Time] 20.6 s 11.7-14.9 [facility] - CoagulationOrde red By: Carlos Cavazos on 07-17-2022 INR Coag (Bld) [Relative time] 1.3 {INR} [facility] Comment on above: Critical Value > 4.0 Whole blood prothrombin time Ordered By: Carlos Cavazos on 07-17-2022 PT Coag (Bld) [Time] 15.9 s 11.7-14.9 [facility] Basophil percentageOrdered B y: Carlos Cavazos on 07-11-2022 Chloride [Moles/Vol] 105 mmol/L 98-107 [facility] Glucose [Mass/Vol] 97 mg/dL 74-106 [facility] Potassium [Moles/Vol] 3.9 mmol/L 3.5-5.1 [facility] Sodium [Moles/Vol] 140 mmol/L 136-145 [facility] WBC (Bld) [#/Vol] 9.4 10*3/uL 4.4-11.0 [facility] Blood erythrocytes count (nu mber/volume)Ordered By: Carlos Cavazos on 07-11-2022 RBC (Bld) [#/Vol] 4.66 10*6/uL 4.6-6.2 [facility] Blood hemoglobin measurement (mass/volume)Ordered By: Carlos Cavazos on 07-11-2022 Hemoglobin (Bld) [Mass/Vol] 12.0 g/dL 13.0-16.5 [facility] Blood platelet mean volumeOr dered By: Carlos Cavazos on 07-11-2022 Platelet mean volume (Bld) [Entitic vol] 10.4 fL 6.2-12.0 [facility] Determination of erythrocyte mean corpuscular volume (MCV)Ordered By: Carlos Cavazos on 07-11-2022 MCV (RBC) [Entitic vol] 83.7 fL 80-94 [facility] Hematocrit Auto (Bld) [Volum e fraction]Ordered By: Carlos Cavazos on 07-11-2022 Hematocrit (Bld) [Volume fraction] 39.0 % 40-54 [facility] - Chemistry and C hemistry - challengeOrdered By: Carlos Cavazos on 07-11-2022 CO2 [Moles/Vol] 28.0 mmol/L 21.0-32.0 [facility] Urea nitrogen/Creatinine [Mass ratio] 23.0 mg/mg 10-20 [facility] - Hematology and Cell countsOrdered By: Carlos Cavazos on 07-11-2022 Erythrocyte distribution width (RBC) [Entitic vol] 51.0 fL 35.1-43.9 [facility] Erythrocyte distribution width (RBC) [Ratio] 16.8 % 11.6-14.6 [facility] MCH (RBC) [Entitic mass] 25.8 pg 27.0-32.0 [facility] MCHC Auto (RBC) [Mass/Vol]Or dered By: Carlos Cavazos on 07-11-2022 MCHC (RBC) [Mass/Vol] 30.8 g/dL 32-36 [facility] No Panel InformationOrdered By: Carlos Cavazos on 07-11-2022 Estimated GFR (MDRD) Amer 126 mL/min >60 [facility] Comment on above: GFR Calc Estimated GFR (MDRD) Non-Af Amer 104 mL/min >60 [facility] Comment on above: Non- GFR Calc Platelets bldOrdered By: Ted Cavazos on 07-11-2022 Platelets (Bld) [#/Vol] 291 10*3/uL 150-450 [facility] Serum or plasma calcium oral urement (mass/volume)Ordered By: Carlos Cavazos on 07-11-2022 Calcium [Mass/Vol] 9.2 mg/dL 8.5-10.1 [facility] Serum or plasma creatinine m easurement (mass/volume)Ordered By: Carlos Cavazos on 07-11-2022 Creatinine [Mass/Vol] 0.78 mg/dL 0.70-1.30 [facility] Comment on above: The validity of the calculated GFR & GFRAA in patients over 70 years has not been determined. Clinical correlation is essential. Serum or plasma urea nitroge n measurement (mass/volume)Ordered By: Carlos Cavazos on 07-11-2022 Urea nitrogen [Mass/Vol] 18 mg/dL 7-18 [facility] Thin prep Papanicolaou smear with manual screeningOrdered By: Carlos Cavazos on 07-11-2022 Thin prep Papanicolaou smear with manual screening 7 5-15 [facility] - CoagulationOrde red By: Carlos Cavazos on 07-10-2022 INR Coag (Bld) [Relative time] 1.8 {INR} [facility] Comment on above: Critical Value > 4.0 Whole blood prothrombin time Ordered By: Carlos Caavzos on 07-10-2022 PT Coag (Bld) [Time] 21.0 s 11.7-14.9 [facility] - CoagulationOrde red By: Carlos Cavazos on 07-03-2022 INR Coag (Bld) [Relative time] 1.9 {INR} [facility] Comment on above: Critical Value > 4.0 Whole blood prothrombin time Ordered By: Carlos Cavazos on 07-03-2022 PT Coag (Bld) [Time] 22.7 s 11.7-14.9 [facility] INR in Blood by Coagulation assayOrdered By: Carlos Cavazos on 06-27-2022 INR Coag (Bld) [Relative time] 2.9 {INR} [facility] - CoagulationOrde red By: Carlos Cavazos on 06-27-2022 PT Coag (PPP) [Time] 29.9 s 11.7-14.9 [facility] - CoagulationOrde red By: Carlos Cavazos on 06-13-2022 INR Coag (Bld) [Relative time] 2.1 {INR} [facility] Comment on above: Critical Value > 4.0 Whole blood prothrombin time Ordered By: Carlos Cavazos on 06-13-2022 PT Coag (Bld) [Time] 24.4 s 11.7-14.9 [facility] - CoagulationOrde red By: Carlos Cavazos on 06-06-2022 INR Coag (Bld) [Relative time] 1.5 {INR} [facility] Comment on above: Critical Value > 4.0 Whole blood prothrombin time Ordered By: Carlos Cavazos on 06-06-2022 PT Coag (Bld) [Time] 18.4 s 11.7-14.9 [facility] Basophil percentageOrdered B y: Carlos Cavazos on 05-30-2022 Chloride [Moles/Vol] 105 mmol/L 98-107 [facility] Glucose [Mass/Vol] 95 mg/dL 74-106 [facility] Potassium [Moles/Vol] 3.9 mmol/L 3.5-5.1 [facility] Sodium [Moles/Vol] 140 mmol/L 136-145 [facility] WBC (Bld) [#/Vol] 7.6 10*3/uL 4.4-11.0 [facility] Blood erythrocytes count (nu mber/volume)Ordered By: Carlos Cavazos on 05-30-2022 RBC (Bld) [#/Vol] 4.79 10*6/uL 4.6-6.2 [facility] Blood hemoglobin measurement (mass/volume)Ordered By: Carlos Cavazos on 05-30-2022 Hemoglobin (Bld) [Mass/Vol] 12.1 g/dL 13.0-16.5 [facility] Blood platelet mean volumeOr dered By: Carlos Cavazos on 05-30-2022 Platelet mean volume (Bld) [Entitic vol] 10.4 fL 6.2-12.0 [facility] Determination of erythrocyte mean corpuscular volume (MCV)Ordered By: Carlos Cavazos on 05-30-2022 MCV (RBC) [Entitic vol] 82.5 fL 80-94 [facility] Hematocrit Auto (Bld) [Volum e fraction]Ordered By: Carlos Cavazos on 05-30-2022 Hematocrit (Bld) [Volume fraction] 39.5 % 40-54 [facility] INR in Blood by Coagulation assayOrdered By: Carlos Cavazos on 05-30-2022 INR Coag (Bld) [Relative time] 1.9 {INR} [facility] - Chemistry and C hemistry - challengeOrdered By: Carlos Cavazos on 05-30-2022 CO2 [Moles/Vol] 27.0 mmol/L 21.0-32.0 [facility] Urea nitrogen/Creatinine [Mass ratio] 21.4 mg/mg 10-20 [facility] - CoagulationOrde red By: Carlos Cavazos on 05-30-2022 PT Coag (PPP) [Time] 21.6 s 11.7-14.9 [facility] - Hematology and Cell countsOrdered By: Carlos Cavazos on 05-30-2022 Erythrocyte distribution width (RBC) [Entitic vol] 48.8 fL 35.1-43.9 [facility] Erythrocyte distribution width (RBC) [Ratio] 16.2 % 11.6-14.6 [facility] MCH (RBC) [Entitic mass] 25.3 pg 27.0-32.0 [facility] MCHC Auto (RBC) [Mass/Vol]Or dered By: Carlos Cavazos on 05-30-2022 MCHC (RBC) [Mass/Vol] 30.6 g/dL 32-36 [facility] No Panel InformationOrdered By: Carlos Cavazos on 05-30-2022 Estimated GFR (MDRD) Amer 133 mL/min >60 [facility] Comment on above: GFR Calc Estimated GFR (MDRD) Non-Af Amer 110 mL/min >60 [facility] Comment on above: Non- GFR Calc Platelets bldOrdered By: Ted Cavazos on 05-30-2022 Platelets (Bld) [#/Vol] 308 10*3/uL 150-450 [facility] Serum or plasma calcium oral urement (mass/volume)Ordered By: Carlos Cavazos on 05-30-2022 Calcium [Mass/Vol] 9.1 mg/dL 8.5-10.1 [facility] Serum or plasma creatinine m easurement (mass/volume)Ordered By: Carlos Cavazos on 05-30-2022 Creatinine [Mass/Vol] 0.75 mg/dL 0.70-1.30 [facility] Comment on above: The validity of the calculated GFR & GFRAA in patients over 70 years has not been determined. Clinical correlation is essential. Serum or plasma urea nitroge n measurement (mass/volume)Ordered By: Carlos Cavazos on 05-30-2022 Urea nitrogen [Mass/Vol] 16 mg/dL 7-18 [facility] Thin prep Papanicolaou smear with manual screeningOrdered By: Carlos Cavazos on 05-30-2022 Thin prep Papanicolaou smear with manual screening 8 5-15 [facility] Laboratory - CoagulationOrde red By: Carlos Cavazos on 05-16-2022 INR Coag (Bld) [Relative time] 2.6 {INR} [facility] Comment on above: Critical Value > 4.0 Whole blood prothrombin time Ordered By: Carlos Cavazos on 05-16-2022 PT Coag (Bld) [Time] 29.9 s 11.7-14.9 [facility] Laboratory - CoagulationOrde red By: Carlos Cavazos on 05-02-2022 INR Coag (Bld) [Relative time] 2.0 {INR} [facility] Comment on above: Critical Value > 4.0 Whole blood prothrombin time Ordered By: Carlos Cavazos on 05-02-2022 PT Coag (Bld) [Time] 23.2 s 11.7-14.9 [facility] Laboratory - CoagulationOrde red By: Carlos Cavazos on 04-27-2022 INR Coag (Bld) [Relative time] 2.7 {INR} [facility] Comment on above: Critical Value > 4.0 Whole blood prothrombin time Ordered By: Carlos Cavazos on 04-27-2022 PT Coag (Bld) [Time] 31.1 s 11.7-14.9 [facility] Laboratory - CoagulationOrde red By: Carlos Cavazos on 04-26-2022 INR Coag (Bld) [Relative time] 2.8 {INR} [facility] Comment on above: Critical Value > 4.0 Whole blood prothrombin time Ordered By: Carlos Cavazos on 04-26-2022 PT Coag (Bld) [Time] 32.6 s 11.7-14.9 [facility] Laboratory - CoagulationOrde red By: Carlos Cavazos on 04-11-2022 INR Coag (Bld) [Relative time] 2.9 {INR} [facility] Comment on above: Critical Value > 4.0 Whole blood prothrombin time Ordered By: Carlos Cavazos on 04-11-2022 PT Coag (Bld) [Time] 32.8 s 11.7-14.9 [facility] Laboratory - CoagulationOrde red By: Carlos Cavazos on 03-28-2022 INR Coag (Bld) [Relative time] 2.1 {INR} [facility] Comment on above: Critical Value > 4.0 Whole blood prothrombin time Ordered By: Carlos Cavazos on 03-28-2022 PT Coag (Bld) [Time] 24.8 s 11.7-14.9 [facility] Laboratory - CoagulationOrde red By: Carlos Cavazos on 03-23-2022 INR Coag (Bld) [Relative time] 1.7 {INR} [facility] Comment on above: Critical Value > 4.0 Whole blood prothrombin time Ordered By: Carlos Cavazos on 03-23-2022 PT Coag (Bld) [Time] 20.9 s 11.7-14.9 [facility] Laboratory - CoagulationOrde red By: Carlos Cavazos on 03-16-2022 INR Coag (Bld) [Relative time] 1.7 {INR} [facility] Comment on above: Critical Value > 4.0 Whole blood prothrombin time Ordered By: Carlos Cavazos on 03-16-2022 PT Coag (Bld) [Time] 19.9 s 11.7-14.9 [facility] Laboratory - CoagulationOrde red By: Carlos Cavazos on 03-09-2022 INR Coag (Bld) [Relative time] 1.8 {INR} [facility] Comment on above: Critical Value > 4.0 Whole blood prothrombin time Ordered By: Carlos Cavazos on 03-09-2022 PT Coag (Bld) [Time] 21.9 s 11.7-14.9 [facility] Laboratory - CoagulationOrde red By: Carlos Cavazos on 10-31-2022 INR Coag (Bld) [Relative time] 1.7 {INR} [facility] Comment on above: Critical Value > 4.0 Whole blood prothrombin time Ordered By: Carlos Cavazos on 03-06-2022 PT Coag (Bld) [Time] 20.0 s 11.7-14.9 [facility] CBC with Auto Differentialon 03-02-2022 Absolute Baso [...] - 10.7 10*3/uL [facility] Test Performed by [facility], [address] [place] [address] [facility]AST[facility] Patient Name: ANDREW SIFUENTES Computed Tomography ACCESSION EXAM DATE/TIME PROCEDURE ORDERING PROVIDER [id number] 03/02/2022 13:[address] Head or Brain w/o [id number] -LANETTE MUNGUIA Contrast CPT code 57838 Reason For Exam (CT Head or Brain [...] tubes (parent active on the left for PROVIDER SCRIBE shunting and disconnected on the right). 2. No definite evidence of acute infarction (MRI more sensitive), mass lesion, nor hemorrhage. Report Dictated on --- Final --- Dictated: 03/02/2022 1:35 pm Dictating Physician: MD GUTIERREZ WILLIAM Signed Date and Time: 03/02/2022 1:39 pm Signed by: MD GUTIERREZ WILLIAM Transcribed Date and Time: 03/02/2022 1:35 [facility] Anant Gutierrez MD - 03/02/2022 [facility] Name: [id number] Computed Tomography ACCESSION EXAM DATE/TIME PROCEDURE ORDERING PROVIDER [id number] 03/02/2022 13:[address] Head or Brain w/o [id number] -LANETTE MUNGUIA Contrast CPT code 13190 Reason For Exam (CT Head or Brain [...] tubes (parent active on the left for PROVIDER SCRIBE shunting and disconnected on the right). 2. [...] CONTRASTOrdered B y: Anant Gutierrez on 03-02-2022 [facility] CT Head or Brain w/o Contras ton 03-02-2022 CT Head or Brain w/o Contrast Patient Name: ANDREW SIFUENTES Computed Tomography ACCESSION EXAM DATE/TIME PROCEDURE ORDERING PROVIDER [id number] 03/02/2022 13:[address] Head or Brain w/o [id number] -LANETTE MUNGUIA Contrast CPT code 35655 Reason For Exam (CT Head or Brain [...] tubes (parent active on the left for PROVIDER SCRIBE shunting and disconnected on the right). 2. No definite evidence of acute infarction (MRI more sensitive), mass lesion, nor hemorrhage. Report Dictated on Final Dictated: 03/02/2022 1:35 pm Dictating Physician: MD GUTIERREZ WILLIAM Signed Date and Time: 03/02/2022 1:39 pm Signed by: MD GUTIERREZ WILLIAM Transcribed Date and Time: 03/02/2022 1:35 Normal [facility] Comp Metabolic Panelon 03-02 Calcium [Mass/Vol] 9.1 mg/dL Normal 8.4-10.4 [facility] Comment on above: Performed By: #### H EMDF, PT, CMP3 ####[id number] [place], [place] ALP [Catalytic activity/Vol] 128 U/L High 38-126 [facility] Comment on above: Performed By: #### H EMDF, PT, CMP3 ####[id number] [facility] [place] ALT [Catalytic activity/Vol] 12 U/L Normal 0-49 [facility] Comment on above: Result Comment: The ALT test is performed by an updated assay method. Please note that the reference intervals have been changed and are now sex specific. Performed By: #### H EMDF, PT, CMP3 ####[id number] [facility], [place] Anion gap [Moles/Vol] 7 mmol/L Normal 3-13 [facility] Comment on above: Performed By: #### H EMDF, PT, CMP3 ####[place] [facility], [place] AST [Catalytic activity/Vol] 24 U/L Normal 15-46 [facility] Comment on above: Performed By: #### H EMDF, PT, CMP3 ####[place] [facility], [place] Bilirubin [Mass/Vol] 0.4 mg/dL Normal 0.2-1.3 [facility] Comment on above: Performed By: #### H EMDF, PT, CMP3 ####[place] [facility], [place] CO2 [Moles/Vol] 27 mmol/L Normal 22-30 [facility] Comment on above: Performed By: #### H EMDF, PT, CMP3 ####[id number] [facility], [place] Glucose [Mass/Vol] 109 mg/dL High 70-100 [facility] Comment on above: Performed By: #### H EMDF, PT, CMP3 ####[place] [place], [place] Protein [Mass/Vol] 8.1 g/dL Normal 6.3-8.2 [facility] Comment on above: Performed By: #### H CHRISTEL MOTT, CMP3 ####[facility] [id number] [place], [place] Urea nitrogen [Mass/Vol] 22 mg/dL High 7-17 [facility] Comment on above: Performed By: #### H TIERA PT, CMP3 ####[facility] [place], [place] Creatinine [Mass/Vol] 0.63 mg/dL Normal 0.52-1.25 [facility] Comment on above: Performed By: #### H CHRISTEL MOTT CMP3 ####[id number] [place], [place] eGFR OTHER > 90.0 Normal >60 [facility] Comment on above: Result Comment: KDIG [...] Performed By: #### H TIERA PT, CMP3 ####[id number] [place], [place] GFR/1.73 sq M.predicted among blacks MDRD (S/P/Bld) [Vol rate/Area] mL/min/{1.73_m2} Normal >60 [facility] Comment on above: Performed By: #### H TIERA PT, CMP3 ####[facility] [place] [address] Albumin [Mass/Vol] 4.1 g/dL Normal 3.5-5.0 [facility] Comment on above: Performed By: #### H TIERA PT, CMP3 ####[facility] [place] [address] Chloride [Moles/Vol] 106 mmol/L Normal 98-107 [facility] Comment on above: Performed By: #### H TIERA PT, CMP3 ####[id number] [place] [address] Potassium [Moles/Vol] 3.7 mmol/L Normal 3.5-5.1 [facility] Comment on above: Performed By: #### H TIERA PT, CMP3 ####[id number] [place] [address] Sodium [Moles/Vol] 140 mmol/L Normal 135-145 [facility] Comment on above: Performed By: #### H TIERA PT, CMP3 ####[id number] [place] [address] Comprehensive Metabolic Pane kiel 03-02-2022 Albumin [Mass/Vol] 4.1 g/dL 3.5 - 5.0 g/dL [facility] ALP (Bld) [Catalytic activity/Vol] 128 U/L High 38 - 126 U/L [facility] ALT [Catalytic activity/Vol] 12 U/L 0 - 49 U/L [facility] Comment on above: The ALT test is [...] P INF mL/min [facility] EGFR IF NonAfrican Citizen Of [place] mL/min 60 - PINF mL/min [facility] Comment on above: KDIGO guidelines pro vide [...] 109 mg/dL High 70 - 100 mg/dL [facility] Interpretation and review of laboratory results Abnormal [facility] Potassium [Moles/Vol] 3.7 mmol/L 3.5 - 5.1 mmol/L [facility] Protein [Mass/Vol] 8.1 g/dL 6.3 - 8.2 g/dL [facility] Sodium [Moles/Vol] 140 mmol/L 135 - 145 mmol/L [facility] Urea nitrogen (BldV) [Mass/Vol] 22 mg/dL High 7 - 17 mg/dL [facility] Test Performed by [facility], [address] [place] [id number] [place] [address] LAB [facility] ED Provider Noteon 2 ED Provider Note [facility] EMERGENCY DEPT EMERGENCY DEPARTMENT ENCOUNTER Pt Name: Andrew Sifuentes Birthdate 1950 Date of evaluation: 03/02/2022 Provider: Lanette Munguia DO CHIEF COMPLAINT Chief Complaint Patient presents with Fall Patient had unwitnessed fall at [facility] landed on butt. Is on thinners, denies LOC, denies head injury has no complaints at this time HISTORY OF PRESENT ILLNESS (Location/Symptom, Timing/Onset, Context/Setting, Quality, Duration, Modifying Factors, Severity) Note limiting factors. I wore a N-95 mask for the entirety of this encounter. Andrew Sifuentes is a 71 y.o. male medical history of hydrocephalus status post PROVIDER SCRIBE shunt, history of DVT on Coumadin who presents to the emergency department from [facility] for evaluation following mechanical fall. Patient rolled out of bed. Unwitnessed. Found down on ground by nursing staff. Nonambulatory at baseline. Patient reports he did not hit his head. Has no acute complaints. Denies any pain or traumatic injury. Per nursing protocol at intermediate, sent to emergency department due to unwitnessed [...] Hemorrhoids Hydrocephalus, adult (HCC) Kidney stone Neuropathy PROVIDER SCRIBE (ventriculoperitoneal) shunt status SURGICAL HISTORY Past Surgical [...] CONTRAST R (more content not included)... [facility] w/ Autodiffon 03-02 Abs Baso Cnt 0.2 10*3/uL Normal 0.0-0.2 [facility] Comment on above: Performed By: #### H TIERA PT, CMP3 ####[id number] [place] [address] Abs Neutrophile Cnt 10.7 10*3/uL High 1.8-7.0 [facility] Comment on above: Performed By: #### H TIERA PT, CMP3 ####[address] [address] Basophils/100 WBC (Bld) 1.1 % Normal 0.0-2.0 [facility] Comment on above: Performed By: #### H TIERA PT, CMP3 ####[address] [address] Eosinophils (Bld) [#/Vol] 0.1 10*3/uL Normal 0.0-0.5 [facility] Comment on above: Performed By: #### H TIERA PT, CMP3 ####[address] [address] Eosinophils/100 WBC (Bld) 0.5 % Low 1.0-6.0 [facility] Comment on above: Performed By: #### H EMDHeydi PT, CMP3 ####[address] [address] Granulocytes/100 WBC (Bld) 73.9 % Normal 40.0-80.0 [facility] Comment on above: Performed By: #### H EMDF PT, CMP3 ####[address] [address] Lymphocytes (Bld) [#/Vol] 3.0 10*3/uL Normal 1.0-4.3 [facility] Comment on above: Performed By: #### H EMDF PT, CMP3 ####[address] [address] Lymphocytes/100 WBC (Bld) 20.6 % Normal 20.0-40.0 [facility] Comment on above: Performed By: #### H EMDF PT, CMP3 ####[address] Monocytes (Bld) [#/Vol] 0.6 10*3/uL Normal 0.0-0.8 [facility] Comment on above: Performed By: #### H EMDF PT, CMP3 ####[address] Monocytes/100 WBC (Bld) 3.9 % Normal 2.0-10.0 [facility] Comment on above: Performed By: #### H EMDF PT, CMP3 ####[address] Platelet mean volume (Bld) [Entitic vol] 8.5 fL Normal 7.4-12.4 [facility] Comment on above: Result Comment: MPV is a calculated measurement using platelet volume ratio. Performed By: #### H EMDF PT, CMP3 ####[address] Platelets (Bld) [#/Vol] 411 10*3/uL Normal 140-440 [facility] Comment on above: Performed By: #### H EMDF PT, CMP3 ####[address] Erythrocyte distribution width (RBC) [Ratio] 17.0 % High 11.5-14.5 [facility] Comment on above: Performed By: #### H EMDF, PT, CMP3 ####[address] Hematocrit (Bld) [Volume fraction] 37.4 % Low 40.0-52.0 [facility] Comment on above: Performed By: #### H EMDF, PT, CMP3 ####[address] Hemoglobin (Bld) [Mass/Vol] 12.1 g/dL Low 13.0-18.0 [facility] Comment on above: Performed By: #### H EMDF, PT, CMP3 ####[id number] [place], [place] MCH (RBC) [Entitic mass] 26.2 pg Normal 26.0-34.0 [facility] Comment on above: Performed By: #### H EMDF, PT, CMP3 ####[id number] [place], [place] MCHC 32.3 % Normal 32.0-36.0 [facility] Comment on above: Performed By: #### H EMDF, PT, CMP3 ####[address] MCV (RBC) [Entitic vol] 81.1 fL Normal 80.0-98.0 [facility] Comment on above: Performed By: #### H EMDF, PT, CMP3 ####[address] RBC (Bld) [#/Vol] 4.61 10*6/uL Normal 4.40-5.90 [facility] Comment on above: Performed By: #### H EMDF, PT, CMP3 ####[id number] [place], [place] WBC (Bld) [#/Vol] 14.5 10*3/uL High 3.6-10.7 [facility] Comment on above: Performed By: #### H EMDF, PT, CMP3 ####[address] Prothrombin Timeon 2 INR 1.9 High 0.9-1.1 [facility] Comment on above: Result Comment: Harry [...] Performed By: #### H EMDF, PT, CMP3 ####[id number] [place] [address] PT Coag (PPP) [Time] 18.9 s High 9.0-12.0 [facility] Comment on above: Result Comment: . Performed By: #### H EMDF, PT, CMP3 ####[id number] [place] [address] Protime-INRon 03-02-2022 INR Coag (Bld) [Relative time] 1.9 {INR} High [facility] Comment on above: Recommended Anticoag ulant [...] Interpretation and review of laboratory results Abnormal [facility] PT Coag (PPP) [Time] 18.9 s High 9.0 - 12.0 s [facility] Comment on above: . Test Performed by [facility], [address] [place] [address] [facility] Laboratory - CoagulationOrde red By: Carlos Cavazos on 02-20-2022 INR Coag (Bld) [Relative time] 2.6 {INR} [facility] Comment on above: Critical Value > 4.0 Whole blood prothrombin time Ordered By: Carlos Cavazos on 02-20-2022 PT Coag (Bld) [Time] 30.1 s 11.7-14.9 [facility] Laboratory - CoagulationOrde red By: Carlos Cavazos on 02-13-2022 INR Coag (Bld) [Relative time] 2.3 {INR} [facility] Comment on above: Critical Value > 4.0 Whole blood prothrombin time Ordered By: Carlos Cavazos on 02-13-2022 PT Coag (Bld) [Time] 26.7 s 11.7-14.9 [facility] Laboratory - CoagulationOrde red By: Carlos Cavazos on 02-06-2022 INR Coag (Bld) [Relative time] 2.3 {INR} [facility] Comment on above: Critical Value > 4.0 Whole blood prothrombin time Ordered By: Carlos Cavazos on 02-06-2022 PT Coag (Bld) [Time] 26.6 s 11.7-14.9 [facility] Laboratory - Coagulationon 0 01-30-2022 INR Coag (Bld) [Relative time] 1.7 {INR} [facility] Work Phone: Comment on above: Critical Value > 4.0 Whole blood prothrombin time on 01-30-2022 PT Coag (Bld) [Time] 20.1 s 11.7-14.9 [facility] Work Phone: Laboratory - Coagulationon 0 01-26-2022 INR Coag (Bld) [Relative time] 1.8 {INR} [facility] Work Phone: Comment on above: Critical Value > 4.0 Whole blood prothrombin time on 01-26-2022 PT Coag (Bld) [Time] 21.8 s 11.7-14.9 [facility] Work Phone: Laboratory - Coagulationon 0 01-19-2022 INR Coag (Bld) [Relative time] 2.2 {INR} [facility] Work Phone: Comment on above: Critical Value > 4.0 Whole blood prothrombin time on 01-19-2022 PT Coag (Bld) [Time] 25.7 s 11.7-14.9 [facility] Work Phone: INR in Blood by Coagulation assayon 01-10-2022 INR Coag (Bld) [Relative time] 1.8 {INR} [facility] Work Phone: Laboratory - Coagulationon 0 01-10-2022 PT Coag (PPP) [Time] 20.9 s 11.7-14.9 [facility] Work Phone: Basophil percentageon 2021 Chloride [Moles/Vol] 107 mmol/L 98-[address] [facility] [place]: Glucose [Mass/Vol] 82 mg/dL 74-106 [facility] Work Phone: Potassium [Moles/Vol] 3.4 mmol/L 3.5-5.1 [facility] [place]: Sodium [Moles/Vol] 143 mmol/L 136-145 [facility] Work Phone: WBC (Bld) [#/Vol] 10.4 10*3/uL 4.4-11.0 [facility] Work Phone: Blood erythrocytes count (nu mber/volume)on 01-05-2022 RBC (Bld) [#/Vol] 4.27 10*6/uL 4.6-6.2 [facility] Work Phone: Blood hemoglobin measurement (mass/volume)on 01-05-2022 Hemoglobin (Bld) [Mass/Vol] 11.2 g/dL 13.0-16.5 [facility] Work Phone: Blood platelet mean volumeon 01-05-2022 Platelet mean volume (Bld) [Entitic vol] 10.3 fL 6.2-12.0 [facility] Work Phone: Determination of erythrocyte mean corpuscular volume (MCV)on 01-05-2022 MCV (RBC) [Entitic vol] 84.8 fL 80-94 [facility] Work Phone: Hematocrit Auto (Bld) [Volum e fraction]on 01-05-2022 Hematocrit (Bld) [Volume fraction] 36.2 % 40-54 [facility] Work Phone: Laboratory - Chemistry and C hemistry - challengeon 01-05-2022 CO2 [Moles/Vol] 28.0 mmol/L 21.0-32.0 [facility] Work Phone: Urea nitrogen/Creatinine [Mass ratio] 20.0 mg/mg 10-20 [facility] Work Phone: Laboratory - Hematology and Cell countson 01-05-2022 Erythrocyte distribution width (RBC) [Entitic vol] 51.8 fL 35.1-43.9 [facility] Work Phone: Erythrocyte distribution width (RBC) [Ratio] 16.8 % 11.6-14.6 [facility] Work Phone: MCH (RBC) [Entitic mass] 26.2 pg 27.0-32.0 [facility] Work Phone: MCHC Auto (RBC) [Mass/Vol]on 01-05-2022 MCHC (RBC) [Mass/Vol] 30.9 g/dL 32-36 [facility] Work Phone: No Panel Informationon 01-05 Estimated GFR (MDRD) Amer 133 mL/min >60 [facility] Work Phone: Comment on above: GFR Calc Estimated GFR (MDRD) Non-Af Amer 110 mL/min >60 [facility] Work Phone: Comment on above: Non- GFR Calc Platelets bldon 01-05-2022 Platelets (Bld) [#/Vol] 373 10*3/uL 150-450 [facility] Work Phone: Serum or plasma calcium oral urement (mass/volume)on 01-05-2022 Calcium [Mass/Vol] 8.8 mg/dL 8.5-10.1 [facility] Work Phone: Serum or plasma creatinine m easurement (mass/volume)on 01-05-2022 Creatinine [Mass/Vol] 0.75 mg/dL 0.70-1.30 [facility] Work Phone: Comment on above: The validity of the calculated GFR & GFRAA in patients over 70 years has not been determined. Clinical correlation is essential. Serum or plasma urea nitroge n measurement (mass/volume)on 01-05-2022 Urea nitrogen [Mass/Vol] 15 mg/dL 7-18 [facility] Work Phone: Thin prep Papanicolaou smear with manual screeningon 01-05-2022 Thin prep Papanicolaou smear with manual screening 8 5-15 [facility] Work Phone: Laboratory - Coagulationon 0 12-30-2021 INR Coag (Bld) [Relative time] 2.0 {INR} [facility] Work Phone: Comment on above: Critical Value > 4.0 Whole blood prothrombin time on 12-30-2021 PT Coag (Bld) [Time] 23.7 s 11.7-14.9 [facility] Work Phone: Basophil percentageon 2021 Chloride [Moles/Vol] 106 mmol/L 98-107 [facility] Work Phone: Glucose [Mass/Vol] 91 mg/dL 74-106 [facility] Work Phone: Potassium [Moles/Vol] 3.4 mmol/L 3.5-5.1 [facility] Work Phone: Sodium [Moles/Vol] 141 mmol/L 136-145 [facility] Work Phone: WBC (Bld) [#/Vol] 10.2 10*3/uL 4.4-11.0 [facility] Work Phone: Blood erythrocytes count (nu mber/volume)on 12-28-2021 RBC (Bld) [#/Vol] 4.22 10*6/uL 4.6-6.2 [facility] Work Phone: Blood hemoglobin measurement (mass/volume)on 12-28-2021 Hemoglobin (Bld) [Mass/Vol] 11.2 g/dL 13.0-16.5 [facility] Work Phone: Blood platelet mean volumeon 12-28-2021 Platelet mean volume (Bld) [Entitic vol] 10.1 fL 6.2-12.0 [facility] Work Phone: Determination of erythrocyte mean corpuscular volume (MCV)on 12-28-2021 MCV (RBC) [Entitic vol] 82.7 fL 80-94 [facility] Work Phone: Hematocrit Auto (Bld) [Volum e fraction]on 12-28-2021 Hematocrit (Bld) [Volume fraction] 34.9 % 40-54 [facility] Work Phone: Laboratory - Chemistry and C hemistry - challengeon 12-28-2021 CO2 [Moles/Vol] 30.0 mmol/L 21.0-32.0 [facility] Work Phone: Urea nitrogen/Creatinine [Mass ratio] 33.7 mg/mg 10-20 [facility] Work Phone: Laboratory - Hematology and Cell countson 12-28-2021 Erythrocyte distribution width (RBC) [Entitic vol] 49.1 fL 35.1-43.9 [facility] Work Phone: Erythrocyte distribution width (RBC) [Ratio] 16.5 % 11.6-14.6 [facility] Work Phone: MCH (RBC) [Entitic mass] 26.5 pg 27.0-32.0 [facility] Work Phone: MCHC Auto (RBC) [Mass/Vol]on 12-28-2021 MCHC (RBC) [Mass/Vol] 32.1 g/dL 32-36 [facility] Work Phone: No Panel Informationon 12-28 Estimated GFR (MDRD) Amer 174 mL/min >60 [facility] Work Phone: Comment on above: GFR Calc Estimated GFR (MDRD) Non-Af Amer 143 mL/min >60 [facility] Work Phone: Comment on above: Non- GFR Calc Platelets bldon 12-28-2021 Platelets (Bld) [#/Vol] 339 10*3/uL 150-450 [facility] Work Phone: Serum or plasma calcium oral urement (mass/volume)on 12-28-2021 Calcium [Mass/Vol] 8.6 mg/dL 8.5-10.1 [facility] Work Phone: Serum or plasma creatinine m easurement (mass/volume)on 12-28-2021 Creatinine [Mass/Vol] 0.59 mg/dL 0.70-1.30 [facility] Work Phone: Comment on above: The validity of the calculated GFR & GFRAA in patients over 70 years has not been determined. Clinical correlation is essential. Serum or plasma urea nitroge n measurement (mass/volume)on 12-28-2021 Urea nitrogen [Mass/Vol] 20 mg/dL 7-18 [facility] Work Phone: Thin prep Papanicolaou smear with manual screeningon 12-28-2021 Thin prep Papanicolaou smear with manual screening 5 5-15 [facility] Work Phone: CULTURE BLOODon 12-27-2021 Microscopic examination of blood, culture CULTURE BLOOD --> Status: F No growth at 5 days. Normal [facility] Comment on above: Performed By: #### C /BLD #### [place] [facility] [address] [place] [address] Laboratory - Coagulationon 0 12-26-2021 INR Coag (Bld) [Relative time] 1.7 {INR} [facility] Work Phone: Comment on above: Critical Value > 4.0 Whole blood prothrombin time on 12-26-2021 PT Coag (Bld) [Time] 20.8 s 11.7-14.9 [facility] Work Phone: Basic Metabolic Panelon 12-05 Calcium [Mass/Vol] 8.8 mg/dL Normal 8.4-10.4 [facility] Comment on above: Performed By: #### C RP2, ESR, HEMDF, BMP3 ####[employer] [facility] [place] [address] Anion gap [Moles/Vol] 6 mmol/L Normal 3-13 [facility] Comment on above: Performed By: #### C RP2, ESR, HEMDF, BMP3 ####[facility] [place] [address] CO2 [Moles/Vol] 27 mmol/L Normal 22-30 [facility] Comment on above: Performed By: #### C RP2, ESR, HEMDF, BMP3 ####[facility] [place] [address] Glucose [Mass/Vol] 100 mg/dL Normal 70-100 [facility] Comment on above: Performed By: #### C RP2, ESR, HEMDF, BMP3 ####[address] [place] [address] Urea nitrogen [Mass/Vol] 18 mg/dL High 7-17 [facility] Comment on above: Performed By: #### C RP2, ESR, HEMDF, BMP3 ####[address] [place], [place] Creatinine [Mass/Vol] 0.73 mg/dL Normal 0.52-1.25 [facility] Comment on above: Performed By: #### C RP2, ESR, HEMDF, BMP3 ####[address] [place] [address] eGFR OTHER > 90.0 Normal >60 [facility] Comment on above: Result Comment: KDIG [...] By: #### C RP2, ESR, HEMDF, BMP3 ####[address] [place], [place] GFR/1.73 sq M.predicted among blacks MDRD (S/P/Bld) [Vol rate/Area] mL/min/{1.73_m2} Normal >60 [facility] Comment on above: Performed By: #### C RP2, ESR, HEMDF, BMP3 ####[address] [place], [place] Potassium [Moles/Vol] 3.7 mmol/L Normal 3.5-5.1 [facility] Comment on above: Performed By: #### C RP2, ESR, HEMDF, BMP3 ####[address] [place], [place] Chloride [Moles/Vol] 106 mmol/L Normal 98-107 [facility] Comment on above: Performed By: #### C RP2, ESR, HEMDF, BMP3 ####[address] [place], [place] Sodium [Moles/Vol] 139 mmol/L Normal 135-145 [facility] Comment on above: Performed By: #### C RP2, ESR, HEMDF, BMP3 ####[address] [place], [place] Anion gap [Moles/Vol] 6 mmol/L 3 - 13 mmol/L [facility] Calcium [Mass/Vol] 8.8 mg/dL 8.4 - 10. 4 mg/dL [facility] Chloride [Moles/Vol] 106 mmol/L 98 - 10 7 mmol/L [facility] CO2 [Moles/Vol] 27 mmol/L 22 - 30 mmol/L [facility] Creatinine [Mass/Vol] 0.73 mg/dL 0.52 - 1.25 mg/dL [facility] eGFR mL/min 60 - P INF mL/min [facility] EGFR IF NonAfrican Citizen Of [place] mL/min 60 - PINF mL/min [facility] Comment on above: KDIGO guidelines pro vide [...] 2021 Basophil percentage 25-50 SEEN /hpf 0-5 [facility] Work Phone: Chloride [Moles/Vol] 106 mmol/L 98-107 [facility]: Glucose [Mass/Vol] 93 mg/dL 74-106 [facility] Work Phone: Potassium [Moles/Vol] 3.5 mmol/L 3.5-5.1 [facility] Work Phone: [phone] Sodium [Moles/Vol] 140 mmol/L 136-145 [facility] Work [facility]: WBC (Bld) [#/Vol] 9.6 10*3/uL 4.4-11.0 [facility] Work Phone: Bilirubin Test strip Ql (U)o n 12-22-2021 Bilirubin Ql (U) Negative Negative [facility] Work Phone: Blood erythrocytes count (nu mber/volume)on 12-22-2021 RBC (Bld) [#/Vol] 4.34 10*6/uL 4.6-6.2 [facility] Work Phone: Blood hemoglobin measurement (mass/volume)on 12-22-2021 Hemoglobin (Bld) [Mass/Vol] 11.5 g/dL 13.0-16.5 [facility] Work Phone: Blood platelet mean volumeon 12-22-2021 Platelet mean volume (Bld) [Entitic vol] 10.8 fL 6.2-12.0 [facility] Work Phone: C-Reactive Proteinon 022 CRP [Mass/Vol] 27.2 mg/L High 0.0-9.9 [facility] Comment on above: Result Comment: . Performed By: #### C RP2, ESR, HEMDF, BMP3 ####[employer] [id number] [place] [address] CRP [Mass/Vol] 27.2 mg/L High 0 - 9.9 mg/L [facility] Comment on above: . CBC with Auto [...] - 10.7 10*3/uL [facility] Test Performed by [address] [facility] COVID-19, Flu A/B, and RSV C omboon 12-22-2021 Influenza A by PCR Not detected [facility] A Influenza B by PCR Not detected [facility] A RSV PCR Not Detected. Expected Result: Not Detected _ Method: Real-time, RT-PCR This assay was developed by [employer] and distributed under an Emergency Use Authorization (EUA) granted by the FDA for the qualitative detection of nucleic acids from SARS-CoV-2, Influenza A, Influenza B, and Respiratory Syncytial Virus. Provider and patient fact sheets can be found at https://www.fda.gov/media /135608/download and https://www.fda.gov/media /024697/download. [facility] SARS-CoV-2 (COVID-19) RNA MEGAN+probe Ql (Unsp spec) Not detected [facility] Test Performed by [address] [address] [facility] CR Foot Complete 3+ Views Le fton 12-22-2021 CR Foot Complete 3+ Views Left Patient [facility]: [id number] Diagnostic Radiology ACCESSION EXAM DATE/TIME PROCEDURE ORDERING PROVIDER [id number] 12/22/2021 00:09 EDT CR Foot Complete 3+ SANDY HIDALGO HENRY Godoy Views Left CPT code 50521 Reason For Exam (CR Foot Complete 3+ [...] Transcribed Date and Time: 12/22/2021 0:21 Normal [facility] Calcium oxalate crystals det ection in urine sediment by light microscopyon 12-22-2021 Calcium oxalate crystals LM Ql (Urine sed) 1+ /hpf [facility] Work Phone: Determination of erythrocyte mean corpuscular volume (MCV)on 12-22-2021 MCV (RBC) [Entitic vol] 84.3 fL 80-94 [facility] Work Phone: ED Provider Noteon ED Provider Note Emergency Department Encounter [facility] [...] leg for a while. According to EMS intermediate staff completed x-ray of the lower extremity and there was concern for osteomyelitis hence transferring patient to the hospital. Patient states this time the wounds on the left lower extremity for extended period of time. He denies fevers or chills. Patient states intermediate staff have been taking care of the wound for him. Focused exam: Blood pressure 108/67, pulse 77, temperature 97.9 ?F (36.6 ?C), temperature source Oral, resp. rate 16, height 5' 9" (1.753 m), weight 79.4 kg (175 lb), SpO2 96 %. [id number] in no acute distress. Alert and oriented [...] are mis-transcribed.) Sharon Olivia MD [facility] [employer] Sharon Olivia MD 12/22/21 4627 [facility] ED Provider Note [facility] EM[facility]GENCY [facility] EMERGENCY DEPARTMENT ENCOUNTER Pt Name: Andrew Sifuentes Birthdate 1950 Date of evaluation: 12/21/2021 Provider: SANIA Lou CHIEF COMPLAINT Chief Complaint Patient presents with Osteomyelitis Patient from [facility], facility did xrays on left lower leg [...] Hemorrhoids Hydrocephalus, adult (HCC) Kidney stone Neuropathy PROVIDER SCRIBE (ventriculoperitoneal) shunt status SURGICAL HISTORY Past Surgical [...] use: No Sexual activity: Not Currently SCREENINGS [place] Coma Scale Eye Opening: Spontaneous Best Verbal Response: Confused Best Motor Response: Obeys commands [place] Coma Scale Score: 14 Patient symptoms are [...] soft. Tenderness: (more content not included)... Normal [facility] Hematocrit Auto (Bld) [Volum e fraction]on 12-22-2021 Hematocrit (Bld) [Volume fraction] 36.6 % 40-54 [facility] Work Phone: Hemogram w/ Autodiffon 12-22 Abs Baso Cnt 0.1 10*3/uL Normal 0.0-0.2 [facility] Comment on above: Performed By: #### C RP2, ESR, HEMDF, BMP3 ####[facility] [id number] [place], [place] Abs Neutrophile Cnt 5.9 10*3/uL Normal 1.8-7.0 [facility] Comment on above: Performed By: #### C RP2, ESR, HEMDF, BMP3 ####[facility] [address] Basophils/100 WBC (Bld) 0.7 % Normal 0.0-2.0 [facility] Comment on above: Performed By: #### C RP2, ESR, HEMDF, BMP3 ####[facility] [address] Eosinophils (Bld) [#/Vol] 0.2 10*3/uL Normal 0.0-0.5 [facility] Comment on above: Performed By: #### C RP2, ESR, HEMDF, BMP3 ####[facility] [id number] [place], [place] Eosinophils/100 WBC (Bld) 2.3 % Normal 1.0-6.0 [facility] Comment on above: Performed By: #### C RP2, ESR, HEMDF, BMP3 ####[facility] [id number] [place], [place] Erythrocyte distribution width (RBC) [Ratio] 17.5 % High 11.5-14.5 [facility] Comment on above: Performed By: #### C RP2, ESR, HEMDF, BMP3 ####[address] [place], [place] Granulocytes/100 WBC (Bld) 57.8 % Normal 40.0-80.0 [facility] Comment on above: Performed By: #### C RP2, ESR, HEMDF, BMP3 ####[address] [place], [place] Hematocrit (Bld) [Volume fraction] 33.3 % Low 40.0-52.0 [facility] Comment on above: Performed By: #### C RP2, ESR, HEMDF, BMP3 ####[address] [place], [place] Hemoglobin (Bld) [Mass/Vol] 11.0 g/dL Low 13.0-18.0 [facility] Comment on above: Performed By: #### C RP2, ESR, HEMDF, BMP3 ####[address] Lymphocytes (Bld) [#/Vol] 3.3 10*3/uL Normal 1.0-4.3 [facility] Comment on above: Performed By: #### C RP2, ESR, HEMDF, BMP3 ####[address] [place], [place] Lymphocytes/100 WBC (Bld) 33.0 % Normal 20.0-40.0 [facility] Comment on above: Performed By: #### C RP2, ESR, HEMDF, BMP3 ####[address] MCH (RBC) [Entitic mass] 26.5 pg Normal 26.0-34.0 [facility] Comment on above: Performed By: #### C RP2, ESR, HEMDF, BMP3 ####[address] MCHC 33.1 % Normal 32.0-36.0 [facility] Comment on above: Performed By: #### C RP2, ESR, HEMDF, BMP3 ####[address] [place], [place] MCV (RBC) [Entitic vol] 80.2 fL Normal 80.0-98.0 [facility] Comment on above: Performed By: #### C RP2, ESR, HEMDF, BMP3 ####[address] Monocytes (Bld) [#/Vol] 0.6 10*3/uL Normal 0.0-0.8 [facility] Comment on above: Performed By: #### C RP2, ESR, HEMDF, BMP3 ####[address] Monocytes/100 WBC (Bld) 6.2 % Normal 2.0-10.0 [facility] Comment on above: Performed By: #### C RP2, ESR, HEMDF, BMP3 ####[address] Platelet mean volume (Bld) [Entitic vol] 8.0 fL Normal 7.4-12.4 [facility] Comment on above: Result Comment: MPV is a calculated measurement using platelet volume ratio. Performed By: #### C RP2, ESR, HEMDF, BMP3 ####[address] [place], [place] Platelets (Bld) [#/Vol] 368 10*3/uL Normal 140-440 [facility] Comment on above: Performed By: #### C RP2, ESR, HEMDF, BMP3 ####[address] RBC (Bld) [#/Vol] 4.15 10*6/uL Low 4.40-5.90 [facility] Comment on above: Performed By: #### C RP2, ESR, HEMDF, BMP3 ####[id number] [place], [place] WBC (Bld) [#/Vol] 10.1 10*3/uL Normal 3.6-10.7 [facility] Comment on above: Performed By: #### C RP2, ESR, HEMDF, BMP3 ####[facility] [id number] [place] [address] Ketones Test strip Ql (U)on 12-22-2021 Ketones Ql (U) Negative Negative [facility] Work Phone: Laboratory - Chemistry and C hemistry - challengeon 12-22-2021 CO2 [Moles/Vol] 27.0 mmol/L 21.0-32.0 [facility] Work Phone: Urea nitrogen/Creatinine [Mass ratio] 22.5 mg/mg 10-20 [facility] Work Phone: Laboratory - Hematology and Cell countson 12-22-2021 Erythrocyte distribution width (RBC) [Entitic vol] 49.1 fL 35.1-43.9 [facility] Work Phone: [phone] Erythrocyte distribution width (RBC) [Ratio] 16.1 % 11.6-14.6 [facility] Work Phone: MCH (RBC) [Entitic mass] 26.5 pg 27.0-32.0 [facility] Work Phone: MCHC Auto (RBC) [Mass/Vol]on 12-22-2021 MCHC (RBC) [Mass/Vol] 31.4 g/dL 32-36 [facility] Work Phone: Mucus LM Ql (Urine sed)on Mucus Ql (Urine sed) 0 SEEN /hpf [facility] Work Phone: Nitrite Test strip Ql (U)on 12-22-2021 Nitrite Ql (U) Positive Negative [facility] Work Phone: No Panel Informationon 12-22 Estimated GFR (MDRD) Amer 152 mL/min >60 [facility] Work Phone: Comment on above: GFR Calc Estimated GFR (MDRD) Non-Af Amer 125 mL/min >60 [facility] Work Phone: Comment on above: Non- GFR Calc Interpretation and review of laboratory results Abnormal [facility] Test Performed by [facility], [address] [place] [address] [facility] Platelets bldon 12-22-2021 Platelets (Bld) [#/Vol] 317 10*3/uL 150-450 [facility] Work Phone: Protein Test strip Ql (U)on 12-22-2021 Protein Ql (U) 30 mg/dl Negative [facility] Work Phone: SARS-CoV-2, Flu A/B and RSVo n 12-22-2021 SARS-CoV-2 (COVID-19) RNA MEGAN+probe Ql (Unsp spec) SARS-CoV-2 --> Status: F Not Detected. Flu A PCR --> Status: F Not Detected. Flu B PCR --> Status: F Not Detected. RSV PCR --> Status: F Not Detected. Expected Result: Not Detected _ Method: Real-time, RT-PCR This assay was developed by [employer] and distributed under an Emergency Use Authorization (EUA) granted by the FDA for the qualitative detection of nucleic acids from SARS-CoV-2, Influenza A, Influenza B, and Respiratory Syncytial Virus. Provider and patient fact sheets can be found at https://www.fda.gov/media /434428/download and https://www.fda.gov/media /894207/download. Expected Result: Not Detected _ Method: Real-time, RT-PCR This assay was developed by [employer] and distributed under an Emergency Use Authorization (EUA) granted by the FDA for the qualitative detection of nucleic acids from SARS-CoV-2, Influenza A, Influenza B, and Respiratory Syncytial Virus. Provider and patient fact sheets can be found at https://www.fda.gov/media /772937/download and https://www.fda.gov/media /100940/download. Normal [facility] Comment on above: Performed By: #### C VFLR ####[facility] [id number] [place] [address], [address] Sed Rateon 12-22-2021 Sed Rate 48 mm/h High 0-10 [facility] Comment on above: Performed By: #### C RP2, ESR, HEMDF, BMP3 ####[facility] [place] [address] Sedimentation Rateon 022 Interpretation and review of laboratory results Abnormal [facility] Sed Rate 48 mm/h High 0 - 10 mm/h [facility] Test Performed by [facility], [address] [place] [address] [facility] Serum or plasma calcium oral urement (mass/volume)on 12-22-2021 Calcium [Mass/Vol] 8.6 mg/dL 8.5-10.1 [facility] Work Phone: Serum or plasma creatinine m easurement (mass/volume)on 12-22-2021 Creatinine [Mass/Vol] 0.67 mg/dL 0.70-1.30 [facility] Work Phone: Comment on above: The validity of the calculated GFR & GFRAA in patients over 70 years has not been determined. Clinical correlation is essential. Serum or plasma urea nitroge n measurement (mass/volume)on 12-22-2021 Urea nitrogen [Mass/Vol] 15 mg/dL 11-21 [facility] Work Phone: Squamous epithelial cells de tection in urine sediment by light microscopyon 12-22-2021 Epithelial cells.squamous LM Ql (Urine sed) 0-5 SEEN /hpf 0-5 [facility] Work Phone: Thin prep Papanicolaou smear with manual screeningon 12-22-2021 Thin prep Papanicolaou smear with manual screening 7 - [facility] Work Phone: Urine blood detectionon 12-05 RBC Ql (U) 150 /ul Negative [facility] Work Phone: RBC Ql (U) 10-25 SEEN /hpf 0-5 [facility] Work Phone: Urine clarityon 12-22-2021 Clarity (U) Sl. Cloudy Clear [facility] Work Phone: Urine color determinationon 12-22-2021 Color (U) Yellow Yellow [facility] Work Phone: Urine glucose detectionon Glucose Ql (U) Normal mg/dl Normal [facility] Work Phone: Urine leukocyte esterase det ection by dipstickon 12-22-2021 Leukocyte esterase Test strip Ql (U) 500 /ul Negative [facility] Work Phone: Urine pHon 12-22-2021 pH (U) 6.0 [pH] 5.0 - 8.0 [facility] Work Phone: Urine sediment bacteria coun t by microscopy (number/high power field)on 12-22-2021 Bacteria LM.HPF (Urine sed) [#/Area] 2 /[HPF] None Seen [facility] Work Phone: Urine specific gravity measu rementon 12-22-2021 Specific gravity (U) [Rel density] 1.020 1.002-1.030 [facility] Work Phone: Urobilinogen Auto test strip Ql (U)on 12-22-2021 Urobilinogen Ql (U) Normal mg/dl Normal [facility] Work Phone: XR FOOT LEFT (MIN 3 VIEWS)on 12-22-2021 Patient [facility]: [id number] Diagnostic Radiology ACCESSION EXAM DATE/TIME PROCEDURE ORDERING PROVIDER [id number] 12/22/2021 00:09 EDT CR Foot Complete 3+ SANDY HIDALGO, JOAN Views Left CPT code 97097 Reason For Exam (CR Foot Complete 3+ [...] JEFFREY Transcribed Date and Time: 12/22/2021 0:21 [facility] Albert Solano MD - 12/22/2021 Patient Name: ANDREW SIFUENTES Diagnostic Radiology ACCESSION EXAM DATE/TIME PROCEDURE ORDERING PROVIDER [id number] 12/22/2021 00:09 EDT CR Foot Complete 3+ SANDY HIDALGO JOHN M Views Left CPT code 37148 Reason For Exam (CR Foot Complete 3+ [...] Dictated: 12/22/2021 0:21 am Dictating Physician: MD SLOANO JEFFREY Signed Date and Time: 12/22/2021 0:22 am Signed by: MD SOLANO JEFFREY Transcribed Date and Time: 12/22/2021 0:21 [facility] Work Phone: Radiology Study observation (narrative) [facility] Work Phone: XR FOOT LEFT (MIN 3 VIEWS)Or dered By: Albetr Solano on 12-22-2021 [facility] Work Phone: Basophil percentageon 2021 Chloride [Moles/Vol] 103 mmol/L 98-107 [facility] Work Phone: Glucose [Mass/Vol] 92 mg/dL 74-106 [facility] Work Phone: Potassium [Moles/Vol] 3.5 mmol/L 3.5-5.1 [facility] Work Phone: Sodium [Moles/Vol] 138 mmol/L 136-145 [facility] Work Phone: [phone] WBC (Bld) [#/Vol] 11.2 10*3/uL 4.4-11.0 [facility] Work Phone: Blood erythrocytes count (nu mber/volume)on 12-19-2021 RBC (Bld) [#/Vol] 4.50 10*6/uL 4.6-6.2 [facility] Work Phone: Blood hemoglobin measurement (mass/volume)on 12-19-2021 Hemoglobin (Bld) [Mass/Vol] 12.2 g/dL 13.0-16.5 [facility] Work Phone: Blood platelet mean volumeon 12-19-2021 Platelet mean volume (Bld) [Entitic vol] 11.3 fL 6.2-12.0 [facility] Work Phone: Determination of erythrocyte mean corpuscular volume (MCV)on 12-19-2021 MCV (RBC) [Entitic vol] 85.6 fL 80-94 [facility] Work Phone: Hematocrit Auto (Bld) [Volum e fraction]on 12-19-2021 Hematocrit (Bld) [Volume fraction] 38.5 % 40-54 [facility] Work Phone: Laboratory - Chemistry and C hemistry - challengeon 12-19-2021 CO2 [Moles/Vol] 30.0 mmol/L 21.0-32.0 [facility] Work Phone: Urea nitrogen/Creatinine [Mass ratio] 27.1 mg/mg 10-20 [facility] Work Phone: Laboratory - Hematology and Cell countson 12-19-2021 Erythrocyte distribution width (RBC) [Entitic vol] 50.5 fL 35.1-43.9 [facility] Work Phone: Erythrocyte distribution width (RBC) [Ratio] 16.0 % 11.6-14.6 [facility] Work Phone: MCH (RBC) [Entitic mass] 27.1 pg 27.0-32.0 [facility] Work Phone: MCHC Auto (RBC) [Mass/Vol]on 12-19-2021 MCHC (RBC) [Mass/Vol] 31.7 g/dL 32-36 [facility] Work Phone: No Panel Informationon 12-19 Estimated GFR (MDRD) Amer 153 mL/min >60 [facility] Work Phone: Comment on above: GFR Calc Estimated GFR (MDRD) Non-Af Amer 126 mL/min >60 [facility] Work Phone: Comment on above: Non- GFR Calc Platelets bldon 12-19-2021 Platelets (Bld) [#/Vol] 363 10*3/uL 150-450 [facility] Work Phone: Serum or plasma calcium oral urement (mass/volume)on 12-19-2021 Calcium [Mass/Vol] 9.5 mg/dL 8.5-10.1 [facility] Work Phone: Serum or plasma creatinine m easurement (mass/volume)on 12-19-2021 Creatinine [Mass/Vol] 0.66 mg/dL 0.70-1.30 [facility] Work Phone: Comment on above: The validity of the calculated GFR & GFRAA in patients over 70 years has not been determined. Clinical correlation is essential. Serum or plasma urea nitroge n measurement (mass/volume)on 12-19-2021 Urea nitrogen [Mass/Vol] 18 mg/dL 7-18 [facility] Work Phone: Thin prep Papanicolaou smear with manual screeningon 12-19-2021 Thin prep Papanicolaou smear with manual screening 09 08-15 [facility] Work Phone: Laboratory - Coagulationon 0 12-12-2021 INR Coag (Bld) [Relative time] 2.0 {INR} [facility] Work Phone: Comment on above: Critical Value > 4.0 Whole blood prothrombin time on 12-12-2021 PT Coag (Bld) [Time] 23.9 s 11.7-14.9 [facility] Work Phone: ANES POSTPROC EVALon 022 ANES POSTPROC EVAL Normal [facility] Laboratory - Coagulationon 0 12-08-2021 INR Coag (Bld) [Relative time] 1.8 {INR} [facility] Work Phone: Comment on above: Critical Value > 4.0 Whole blood prothrombin time on 12-08-2021 PT Coag (Bld) [Time] 21.0 s 11.7-14.9 [facility] Work Phone: Absolute lymphocyte counton 12-05-2021 Lymphocytes Auto (Unsp spec) [#/Vol] 2.97 10*3/uL 0.83-4.51 [facility] Work Phone: Basophil percentageon 2021 Basophils/100 WBC (Bld) 0.6 % 0-1 [facility] Work Phone: Chloride [Moles/Vol] 106 mmol/L 98-107 [facility] Work Phone: Eosinophils/100 WBC (Bld) 2.3 % 0-5 [facility] Work Phone: Glucose [Mass/Vol] 107 mg/dL 74-106 [facility] Work Phone: Comment on above: Fasting Glucose resu lt from 100 to 125 mg/dL suggests IMPAIRED HOMEOSTASIS per A.D.A. criteria. Neutrophils (Bld) [#/Vol] 5.6 10*3/uL 2.0-7.7 [facility] Work Phone: Neutrophils/100 WBC (Bld) 60.2 % 47-70 [facility] Work Phone: Potassium [Moles/Vol] 3.4 mmol/L 3.5-5.1 [facility] Work Phone: Sodium [Moles/Vol] 139 mmol/L 136-145 [facility] Work Phone: WBC (Bld) [#/Vol] 9.3 10*3/uL 4.4-11.0 [facility] Work Phone: Blood erythrocytes count (nu mber/volume)on 12-05-2021 RBC (Bld) [#/Vol] 4.49 10*6/uL 4.6-6.2 [facility] Work Phone: Blood hemoglobin measurement (mass/volume)on 12-05-2021 Hemoglobin (Bld) [Mass/Vol] 12.1 g/dL 13.0-16.5 [facility] Work Phone: Blood lymphocytes/100 leukoc yteson 12-05-2021 Lymphocytes/100 WBC (Bld) 32.0 % 19-41 [facility] Work Phone: Blood monocytes/100 leukocyt eson 12-05-2021 Monocytes/100 WBC (Bld) 4.7 % 0-10 [facility] Work Phone: Blood platelet mean volumeon 12-05-2021 Platelet mean volume (Bld) [Entitic vol] 10.8 fL 6.2-12.0 [facility] Work Phone: Determination of erythrocyte mean corpuscular volume (MCV)on 12-05-2021 MCV (RBC) [Entitic vol] 84.9 fL 80-94 [facility] Work Phone: Hematocrit Auto (Bld) [Volum e fraction]on 12-05-2021 Hematocrit (Bld) [Volume fraction] 38.1 % 40-54 [facility] Work Phone: INR in Blood by Coagulation assayon 12-05-2021 INR Coag (Bld) [Relative time] 1.8 {INR} [facility] Work Phone: Laboratory - Chemistry and C hemistry - challengeon 12-05-2021 CO2 [Moles/Vol] 29.0 mmol/L 21.0-32.0 [facility] Work Phone: Urea nitrogen/Creatinine [Mass ratio] 25.4 mg/mg 10-20 [facility] Work Phone: Laboratory - Coagulationon 0 12-05-2021 PT Coag (PPP) [Time] 20.5 s 11.7-14.9 [facility] Work Phone: Laboratory - Hematology and Cell countson 12-05-2021 Erythrocyte distribution width (RBC) [Entitic vol] 48.5 fL 35.1-43.9 [facility] Work Phone: Erythrocyte distribution width (RBC) [Ratio] 15.7 % 11.6-14.6 [facility] Work Phone: Immature granulocytes/100 WBC (Bld) 0.200 % 0.0-0.9 [facility] Work Phone: Comment on above: IG% - Immature Granu locytes (promyelocytes, myelocytes and metamyelocytes) > 1% indicates that a LEFT SHIFT is Present. MCH (RBC) [Entitic mass] 26.9 pg 27.0-32.0 [facility] Work Phone: Nucleated RBC/100 WBC (Bld) [Ratio] 0 % 0-5 [facility] Work Phone: MCHC Auto (RBC) [Mass/Vol]on 12-05-2021 MCHC (RBC) [Mass/Vol] 31.8 g/dL 32-36 [facility] Work Phone: No Panel Informationon 12-05 Estimated GFR (MDRD) Amer 133 mL/min >60 [facility] Work Phone: Comment on above: GFR Calc Estimated GFR (MDRD) Non-Af Amer 110 mL/min >60 [facility] Work Phone: Comment on above: Non- GFR Calc Platelets bldon 12-05-2021 Platelets (Bld) [#/Vol] 363 10*3/uL 150-450 [facility] Work Phone: Serum or plasma calcium oral urement (mass/volume)on 12-05-2021 Calcium [Mass/Vol] 9.4 mg/dL 8.5-10.1 [facility] Work Phone: Serum or plasma creatinine m easurement (mass/volume)on 12-05-2021 Creatinine [Mass/Vol] 0.75 mg/dL 0.70-1.30 [facility] Work Phone: Comment on above: The validity of the calculated GFR & GFRAA in patients over 70 years has not been determined. Clinical correlation is essential. Serum or plasma urea nitroge n measurement (mass/volume)on 12-05-2021 Urea nitrogen [Mass/Vol] 19 mg/dL 7-18 [facility] Work Phone: Thin prep Papanicolaou smear with manual screeningon 12-05-2021 Thin prep Papanicolaou smear with manual screening 4 5-15 [facility] Work Phone: Basophil percentageon 2021 Basophil percentage 0 SEEN /hpf 0-5 [facility] Work Phone: Chloride [Moles/Vol] 104 mmol/L 98-107 [facility] Work Phone: Glucose [Mass/Vol] 90 mg/dL 74-106 [facility] Work Phone: Potassium [Moles/Vol] 3.7 mmol/L 3.5-5.1 [facility] Work Phone: Comment on above: Slight Hemolysis, Re sult may be falsely increased. Sodium [Moles/Vol] 138 mmol/L 136-145 [facility] Work Phone: WBC (Bld) [#/Vol] 10.7 10*3/uL 4.4-11.0 [facility] Work Phone: Bilirubin Test strip Ql (U)o n 12-01-2021 Bilirubin Ql (U) Negative Negative [facility] Work Phone: Blood erythrocytes count (nu mber/volume)on 12-01-2021 RBC (Bld) [#/Vol] 4.33 10*6/uL 4.6-6.2 [facility] Work Phone: Blood hemoglobin measurement (mass/volume)on 12-01-2021 Hemoglobin (Bld) [Mass/Vol] 11.6 g/dL 13.0-16.5 [facility] Work Phone: Blood platelet mean volumeon 12-01-2021 Platelet mean volume (Bld) [Entitic vol] 11.2 fL 6.2-12.0 [facility] Work Phone: Determination of erythrocyte mean corpuscular volume (MCV)on 12-01-2021 MCV (RBC) [Entitic vol] 85.2 fL 80-94 [facility] Work Phone: Hematocrit Auto (Bld) [Volum e fraction]on 12-01-2021 Hematocrit (Bld) [Volume fraction] 36.9 % 40-54 [facility] Work Phone: Ketones Test strip Ql (U)on 12-01-2021 Ketones Ql (U) Negative Negative [facility] Work Phone: Laboratory - Chemistry and C hemistry - challengeon 12-01-2021 CO2 [Moles/Vol] 27.0 mmol/L 21.0-32.0 [facility] Work Phone: Urea nitrogen/Creatinine [Mass ratio] 24.0 mg/mg 10-20 [facility] Work Phone: Laboratory - Coagulationon 0 12-01-2021 INR Coag (Bld) [Relative time] 1.6 {INR} [facility] Work Phone: Comment on above: Critical Value > 4.0 Laboratory - Hematology and Cell countson 12-01-2021 Erythrocyte distribution width (RBC) [Entitic vol] 47.9 fL 35.1-43.9 [facility] Work Phone: Erythrocyte distribution width (RBC) [Ratio] 15.5 % 11.6-14.6 [facility] Work Phone: MCH (RBC) [Entitic mass] 26.8 pg 27.0-32.0 [facility] Work Phone: MCHC Auto (RBC) [Mass/Vol]on 12-01-2021 MCHC (RBC) [Mass/Vol] 31.4 g/dL 32-36 [facility] Work Phone: Mucus LM Ql (Urine sed)on Mucus Ql (Urine sed) 0 SEEN /hpf [facility] Work Phone: Nitrite Test strip Ql (U)on 12-01-2021 Nitrite Ql (U) Negative Negative [facility] Work Phone: No Panel Informationon 12-01 Estimated GFR (MDRD) Amer 133 mL/min >60 [facility] Work Phone: Comment on above: GFR Calc Estimated GFR (MDRD) Non-Af Amer 110 mL/min >60 [facility] Work Phone: Comment on above: Non- GFR Calc Platelets bldon 12-01-2021 Platelets (Bld) [#/Vol] 336 10*3/uL 150-450 [facility] Work Phone: Protein Test strip Ql (U)on 12-01-2021 Protein Ql (U) 30 mg/dl Negative [facility] Work Phone: Serum or plasma calcium oral urement (mass/volume)on 12-01-2021 Calcium [Mass/Vol] 9.4 mg/dL 8.5-10.1 [facility] Work Phone: Serum or plasma creatinine m easurement (mass/volume)on 12-01-2021 Creatinine [Mass/Vol] 0.75 mg/dL 0.70-1.30 [facility] Work Phone: Comment on above: The validity of the calculated GFR & GFRAA in patients over 70 years has not been determined. Clinical correlation is essential. Serum or plasma urea nitroge n measurement (mass/volume)on 12-01-2021 Urea nitrogen [Mass/Vol] 18 mg/dL 7-18 [facility] Work Phone: Squamous epithelial cells de tection in urine sediment by light microscopyon 12-01-2021 Epithelial cells.squamous LM Ql (Urine sed) 0-5 SEEN /hpf 0-5 [facility] Work Phone: Thin prep Papanicolaou smear with manual screeningon 12-01-2021 Thin prep Papanicolaou smear with manual screening 7 5-15 [facility] Work Phone: Urine blood detectionon 11-05 RBC Ql (U) Negative Negative [facility] Work Phone: RBC Ql (U) 0 SEEN /hpf 0-5 [facility] Work Phone: Urine clarityon 12-01-2021 Clarity (U) Clear Clear [facility] Work Phone: Urine color determinationon 12-01-2021 Color (U) Yellow Yellow [facility] Work Phone: Urine glucose detectionon Glucose Ql (U) 50 mg/dl Normal [facility] Work Phone: Urine leukocyte esterase det ection by dipstickon 12-01-2021 Leukocyte esterase Test strip Ql (U) Negative Negative [facility] Work Phone: Urine pHon 12-01-2021 pH (U) 6.0 [pH] 5.0 - 8.0 [facility] Work Phone: Urine sediment bacteria coun t by microscopy (number/high power field)on 12-01-2021 Bacteria LM.HPF (Urine sed) [#/Area] 0 /[HPF] None Seen [facility] Work Phone: Urine sediment yeast count b y microscopy (number/high powered field)on 12-01-2021 Yeast LM.HPF (Urine sed) [#/Area] 2 /[HPF] None Seen [facility] Work Phone: Urine specific gravity measu rementon 12-01-2021 Specific gravity (U) [Rel density] 1.010 1.002-1.030 [facility] Work Phone: Urobilinogen Auto test strip Ql (U)on 12-01-2021 Urobilinogen Ql (U) Normal mg/dl Normal [facility] Work Phone: Whole blood prothrombin time on 12-01-2021 PT Coag (Bld) [Time] 19.8 s 11.7-14.9 [facility] Work Phone: Laboratory - Coagulationon 0 11-28-2021 INR Coag (Bld) [Relative time] 1.6 {INR} [facility] Work Phone: Comment on above: Critical Value > 4.0 Whole blood prothrombin time on 11-28-2021 PT Coag (Bld) [Time] 18.8 s 11.7-14.9 [facility] Work Phone: INR in Blood by Coagulation assayon 11-23-2021 INR Coag (Bld) [Relative time] 2.7 {INR} [facility] Work Phone: Laboratory - Coagulationon 0 11-23-2021 PT Coag (PPP) [Time] 28.0 s 11.7-14.9 [facility] Work Phone: Laboratory - Coagulationon 0 11-22-2021 INR Coag (Bld) [Relative time] 3.8 {INR} [facility] Work Phone: Comment on above: Critical Value > 4.0 Whole blood prothrombin time on 11-22-2021 PT Coag (Bld) [Time] 42.8 s 11.7-14.9 [facility] Work Phone: INR in Blood by Coagulation assayon 11-21-2021 INR Coag (Bld) [Relative time] 3.9 {INR} [facility] Work Phone: Laboratory - Coagulationon 0 11-21-2021 PT Coag (PPP) [Time] 37.7 s 11.7-14.9 [facility] Work Phone: Whole blood prothrombin time on 11-21-2021 PT Coag (Bld) [Time] 45.5 s 11.7-14.9 [facility] Work Phone: INR in Blood by Coagulation assayon 11-14-2021 INR Coag (Bld) [Relative time] 3.1 {INR} [facility] Work Phone: Laboratory - Coagulationon 0 11-14-2021 PT Coag (PPP) [Time] 31.4 s 11.7-14.9 [facility] Work Phone: Laboratory - Coagulationon 0 11-08-2021 INR Coag (Bld) [Relative time] 2.5 {INR} [facility] Work Phone: Comment on above: Critical Value > 4.0 Whole blood prothrombin time on 11-08-2021 PT Coag (Bld) [Time] 29.0 s 11.7-14.9 [facility] Work Phone: Basophil percentageon 2021 Chloride [Moles/Vol] 106 mmol/L 98-107 [facility] Work Phone: Glucose [Mass/Vol] 100 mg/dL 74-106 [facility] Work Phone: Comment on above: Fasting Glucose resu lt from 100 to 125 mg/dL suggests IMPAIRED HOMEOSTASIS per A.D.A. criteria. Potassium [Moles/Vol] 3.7 mmol/L 3.5-5.1 [facility] Work Phone: Sodium [Moles/Vol] 140 mmol/L 136-145 [facility] Work Phone: WBC (Bld) [#/Vol] 8.8 10*3/uL 4.4-11.0 [facility] Work Phone: Blood erythrocytes count (nu mber/volume)on 11-04-2021 RBC (Bld) [#/Vol] 4.05 10*6/uL 4.6-6.2 [facility] Work Phone: Blood hemoglobin measurement (mass/volume)on 11-04-2021 Hemoglobin (Bld) [Mass/Vol] 11.1 g/dL 13.0-16.5 [facility] Work Phone: Blood platelet mean volumeon 11-04-2021 Platelet mean volume (Bld) [Entitic vol] 10.8 fL 6.2-12.0 [facility] Work Phone: Determination of erythrocyte mean corpuscular volume (MCV)on 11-04-2021 MCV (RBC) [Entitic vol] 86.9 fL 80-94 [facility] Work Phone: Hematocrit Auto (Bld) [Volum e fraction]on 11-04-2021 Hematocrit (Bld) [Volume fraction] 35.2 % 40-54 [facility] Work Phone: INR in Blood by Coagulation assayon 11-04-2021 INR Coag (Bld) [Relative time] 1.8 {INR} [facility] Work Phone: Laboratory - Chemistry and C hemistry - challengeon 11-04-2021 CO2 [Moles/Vol] 26.0 mmol/L 21.0-32.0 [facility] Work Phone: Urea nitrogen/Creatinine [Mass ratio] 18.3 mg/mg 10-20 [facility] Work Phone: Laboratory - Coagulationon 0 11-04-2021 PT Coag (PPP) [Time] 20.4 s 11.7-14.9 [facility] Work Phone: Laboratory - Hematology and Cell countson 11-04-2021 Erythrocyte distribution width (RBC) [Entitic vol] 48.1 fL 35.1-43.9 [facility] Work Phone: Erythrocyte distribution width (RBC) [Ratio] 15.0 % 11.6-14.6 [facility] Work Phone: MCH (RBC) [Entitic mass] 27.4 pg 27.0-32.0 [facility] Work Phone: MCHC Auto (RBC) [Mass/Vol]on 11-04-2021 MCHC (RBC) [Mass/Vol] 31.5 g/dL 32-36 [facility] Work Phone: No Panel Informationon 11-04 D-Dimer Quantitative (PE/DVT) 0.56 FEU/ug/m 0.27-0.49 [facility] Work Phone: Comment on above: D-Dimer ELEVATED (>0 .49): Additional studies and clinicalassessments are indicated to conclude diagnosis of:Deep Vein Thrombosis (DVT) or Pulmonary Embolism (PE) Estimated GFR (MDRD) Amer 155 mL/min >60 [facility] Work Phone: Comment on above: GFR Calc Estimated GFR (MDRD) Non-Af Amer 128 mL/min >60 [facility] Work Phone: Comment on above: Non- GFR Calc Troponin I High Sensitivity 11 pg/mL 3.0-78.0 [facility] Work Phone: Comment on above: Please Note: New Fadum[place] t Units and Gender Specific Reference Ranges. For more information see Policy Stat Procedure [place] High Sensitivity Troponin (TNIH) and attachments. Platelets bldon 11-04-2021 Platelets (Bld) [#/Vol] 364 10*3/uL 150-450 [facility] Work Phone: Serum or plasma C reactive p rotein measurement (mass/volume)on 11-04-2021 CRP [Mass/Vol] 31.90 mg/L 0.0-3.0 [facility] Work Phone: Comment on above: C-Reactive Protein ( CRP) provides useful information for thediagnosis, therapy and monitoring of inflammatory processesand associated diseases. For the evaluation of Relative Riskfor Cardiovascular Disease, a High Sensitivity CRP (HSCRP)should be ordered. Serum or plasma calcium oral urement (mass/volume)on 11-04-2021 Calcium [Mass/Vol] 9.1 mg/dL 8.5-10.1 [facility] Work Phone: Serum or plasma creatinine m easurement (mass/volume)on 11-04-2021 Creatinine [Mass/Vol] 0.66 mg/dL 0.70-1.30 [facility] Work Phone: Comment on above: The validity of the calculated GFR & GFRAA in patients over 70 years has not been determined. Clinical correlation is essential. Serum or plasma urea nitroge n measurement (mass/volume)on 11-04-2021 Urea nitrogen [Mass/Vol] 12 mg/dL 7-18 [facility] Work Phone: Thin prep Papanicolaou smear with manual screeningon 11-04-2021 Thin prep Papanicolaou smear with manual screening 8 5-15 [facility] Work Phone: Complete Urinalysison 2021 Appearance (U) Clear Normal Clear [facility] Comment on above: Result Comment: . Performed By: #### C UA2 ####[id number] [place], [place] Bacteria Moderate Abnormal Negative [facility] Comment on above: Result Comment: . Performed By: #### C UA2 ####[employer] [place] Bilirubin,Urine Negative Normal Negative [facility] Comment on above: Result Comment: . Performed By: #### C UA2 ####[employer] [place], [place] Cast, Hyaline Negative Normal Negative [facility] Comment on above: Result Comment: . Performed By: #### C UA2 ####[id number] . [place], [place] Color (U) Yellow Normal Lt. Yellow [facility] Comment on above: Result Comment: . Performed By: #### C UA2 ####[id number] [place], [place] Glucose Ql (U) Normal Normal Normal (<70) [facility] Comment on above: Result Comment: . Performed By: #### C UA2 ####[address] [place], [place] Ketone,Urine Negative Normal Negative [facility] Comment on above: Result Comment: . Performed By: #### C UA2 ####[address] [place], [place] Leukocytes,Urine Negative Normal Negative [facility] Comment on above: Result Comment: . Performed By: #### C UA2 ####[address] [place], [place] Mucous Threads Few Normal Negative [facility] Comment on above: Result Comment: . Performed By: #### C UA2 ####[id number] . [place], [place] Nitrites,Urine Negative Normal Negative [facility] Comment on above: Result Comment: . Performed By: #### C UA2 ####[address] [place], [place] Occult Blood,Urine 0.1 mg/dL Abnormal Negative [facility] Comment on above: Result Comment: . Performed By: #### C UA2 ####[id number] . [place], [place] pH,Urine 5.5 Normal 5.0-8.0 [facility] Comment on above: Result Comment: . Performed By: #### C UA2 ####[id number] . [place], [place] Protein (U) [Mass/Vol] 10 mg/dL Abnormal Negative [facility] Comment on above: Result Comment: . Performed By: #### C UA2 ####[facility] [place], [place] RBC, Urine 26 - 50 Abnormal 0-2 [facility] Comment on above: Result Comment: . Performed By: #### C UA2 ####[id number] [place], [place] Specific [place],Urine 1.023 Normal 1.005 - 1.030 [facility] Comment on above: Result Comment: . Performed By: #### C UA2 ####[id number] [place], [place] Squamous Epithelial Negative Normal 3-5 [facility] Comment on above: Result Comment: . Performed By: #### C UA2 ####[id number] [place], [place] Urobilinogen,Urine Normal Normal Normal (0-1) [facility] Comment on above: Result Comment: . Performed By: #### C UA2 ####[id number] [place], [place] WBC, Urine 0 - 2 Normal 0-5 [facility] Comment on above: Result Comment: . Performed By: #### C UA2 ####[address] [address] [place], [place] Urinalysison 11-01-2021 Appearance (U) Clear Clear NA [facility] Comment on above: . Bacteria, UA Moderate [...] . Occult Blood,Urine 0.1 mg/dL Abnormal Negative [facility] Comment on above: . pH (U) 5.5 [pH] [facility] Comment on above: . Protein (U) [Mass/Vol] 10 mg/dL Abnormal Negative [facility] Comment on above: . RBC, UA 26-50 Abnormal 0 - 2 /[HPF] [facility] Comment on above: . Specific [place], Urine 1.023 [facility] Comment on above: . Squam Epithel, UA Negative 3 - 5 /[HPF] [facility] Comment on above: . Urobilinogen, Urine Normal Normal ( 0-1) mg/dL [facility] Comment on above: . WBC, UA 0-2 0 - 5 /[HPF] [facility] Comment on above: . Test Performed by [facility], [address] [place] [id number] [place] [address] - [facility] Basic Metabolic Panelon 06-2 Anion gap [Moles/Vol] 6 mmol/L Normal 3-13 [facility] Comment on above: Performed By: #### P T/AP, TROPN, BMP3, HEMDF #### [address] [address] Calcium [Mass/Vol] 9.1 mg/dL Normal 8.4-10.4 [facility] Comment on above: Performed By: #### P T/AP, TROPN, BMP3, HEMDF #### [address] [id number] CO2 [Moles/Vol] 28 mmol/L Normal 22-30 [facility] Comment on above: Performed By: #### P T/AP, TROPN, BMP3, HEMDF #### [address] [address] Glucose [Mass/Vol] 120 mg/dL High 70-100 [facility] Comment on above: Performed By: #### P T/AP, TROPN, BMP3, HEMDF #### [address] [address] Urea nitrogen [Mass/Vol] 17 mg/dL Normal 7-17 [facility] Comment on above: Performed By: #### P T/AP, TROPN, BMP3, HEMDF #### [address] Creatinine [Mass/Vol] 0.65 mg/dL Normal 0.52-1.25 [facility] Comment on above: Performed By: #### P T/AP, TROPN, BMP3, HEMDF #### [address] eGFR OTHER > 90.0 Normal >60 [facility] Comment on above: Result Comment: KDIG [...] serum creatinine in children is the Bedside Median equation. It is less accurate in patients with extremes of muscle mass, restriction of dietary protein, ingestion of creatine, extra-renal metabolism of creatinine, or treatment with medications that affect renal tubular creatinine secretion. Performed By: #### P T/AP, TROPN, BMP3, HEMDF #### [address] GFR/1.73 sq M.predicted among blacks MDRD (S/P/Bld) [Vol rate/Area] mL/min/{1.73_m2} Normal >60 [facility] Comment on above: Performed By: #### P T/AP, TROPN, BMP3, HEMDF #### [address] Potassium [Moles/Vol] 3.8 mmol/L Normal 3.5-5.1 [facility] Comment on above: Performed By: #### P T/AP, TROPN, BMP3, HEMDF #### [address] Chloride [Moles/Vol] 101 mmol/L Normal 98-107 [facility] Comment on above: Performed By: #### P T/AP, TROPN, BMP3, HEMDF #### [facility] [address] [place], [place] Sodium [Moles/Vol] 134 mmol/L Low 135-145 [facility] Comment on above: Performed By: #### P T/AP, TROPN, BMP3, HEMDF #### [facility] [address] [place], [place] Anion gap [Moles/Vol] 6 mmol/L 3 - 13 mmol/L [facility] Calcium [Mass/Vol] 9.1 mg/dL 8.4 - 10. 4 mg/dL [facility] Chloride [Moles/Vol] 101 mmol/L 98 - 10 7 mmol/L [facility] CO2 [Moles/Vol] 28 mmol/L 22 - 30 mmol/L [facility] Creatinine [Mass/Vol] 0.65 mg/dL 0.52 - 1.25 mg/dL [facility] EGFR IF NonAfrican Citizen Of [place] >90.0 >60 mL/min [facility] Comment on above: KDIGO guidelines pro vide [...] - 17 mg/dL [facility] Test Performed by [facility], [address] [place] [id number] [place] [address] LAB [facility] CBC with Auto Differentialon 10-31-2021 [...] 11.3 g/dL Low 13.0 - 18.0 g/dL [facility] Interpretation and review of laboratory results Abnormal [...] - 10.7 10*3/uL [facility] Test Performed by [address] LAB [facility] CR Abdomen APon 10-31-2021 CR Abdomen AP Patient Name: ANDREW SIFUENTES Diagnostic Radiology ACCESSION EXAM DATE/TIME PROCEDURE ORDERING PROVIDER [id number] 10/31/2021 20:36 EDT CR Abdomen AP [id number] -MYRON DURAN CPT code 16147 Reason For Exam (CR Abdomen AP) svp digital sales shunt, 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 CHEST PORTABLE [...] bowel gas pattern. Report Dictated on Workstation: [id number] Final Dictated: 10/31/2021 8:49 pm Dictating Physician: MD REYNOSO WENDELL Signed Date and Time: 10/31/2021 8:52 pm Signed by: MD REYNOSO WENDELL Transcribed Date and Time: 10/31/2021 8:49 Normal [facility] CR Chest Portableon 11-01-19 CR Chest Portable Patient Name: ANDREW SIFUENTES Diagnostic Radiology ACCESSION EXAM DATE/TIME PROCEDURE ORDERING PROVIDER [id number] 10/31/2021 20:36 EDT CR Chest Portable [id number] PERDOMO CPT code 23217 Reason For Exam (CR Chest Portable) AMS [...] Transcribed Date and Time: 10/31/2021 8:[address] [facility] [address] HEAD WO CONTRASTon 2021 Patient Name: ANDREW SIFUENTES Computed Tomography ACCESSION EXAM DATE/TIME PROCEDURE ORDERING PROVIDER [id number] 10/31/2021 20:[address] Head or Brain w/o [id number] -DURAN, MYRON Contrast CPT code 49420 Reason For Exam (CT Head or Brain w/o Contrast) AMS, previous PROVIDER SCRIBE shunt Report Examination: CT Head Clinical Information: AMS, previous PROVIDER SCRIBE shunt Comparison: 10/26/2021, MRI 10/27/2021 Findings: Serial [...] J Transcribed Date and Time: 10/31/2021 8:54 [facility] Alan Hernandez MD - 10/31/2021 Patient Name: ANDREW SIFUENTES [facility]#: [id number] Computed Tomography ACCESSION EXAM DATE/TIME PROCEDURE ORDERING PROVIDER [id number] 10/31/2021 20:[address] Head or Brain w/o [id number] -DURAN, MYRON Contrast CPT code 95232 Reason For Exam (CT Head or Brain w/o Contrast) AMS, previous PROVIDER SCRIBE shunt Report Examination: CT Head Clinical Information: AMS, previous PROVIDER SCRIBE shunt Comparison: 10/26/2021, MRI 10/27/2021 Findings: Serial [...] Tomography ACCESSION EXAM DATE/TIME PROCEDURE ORDERING PROVIDER [id number] 10/31/2021 20:[address] Head or Brain w/o [id number] -MYRON DURAN Contrast CPT code 22076 Reason For Exam (CT Head or Brain w/o Contrast) AMS, previous PROVIDER SCRIBE shunt Report Examination: CT Head Clinical Information: AMS, previous PROVIDER SCRIBE shunt Comparison: 10/26/2021, MRI 10/27/2021 Findings: Serial [...] Transcribed Date and Time: 10/31/2021 8:54 Normal [facility] ED Provider Noteon ED Provider Note Emergency Department Encounter [facility] EMERGENCY DEPT Patient: Andrew Sifuentes : [...] is cooperative and calm. According to the intermediate, he has been more lethargic than normal, [...] [facility] Dante Kim MD 10/31/21 2211 [facility] ED Provider Note [facility] EMERGENCY DEPT EMERGENCY DEPARTMENT ENCOUNTER Pt Name: Andrew Sifuentes Birthdate 1950 Date of evaluation: 10/31/2021 Provider: Myron Duran MD CHIEF COMPLAINT Chief Complaint Patient presents with ? Altered Mental Status Pt presents to ED via [facility] for complaint listed. Pt is from [place] [facility]. Pt's LKW was 1000 hours [...] have a history of hydrocephalus with a PROVIDER SCRIBE shunt. 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 REVIEW OF [...] (HCC) ? Kidney stone ? Neuropathy ? PROVIDER SCRIBE (ventriculoperitoneal) shunt status SURGICAL HISTORY Past Surgical [...] of Transportati (more content not included)... Normal [facility] EKG 12 Lead - Chest Painon 0 10-31-2021 [facility] Test Date: 2021-10-31 Pat Name: ANDREW SIFUENTES Department: [facility] Room: 40 Gender: M Manager Science: ANDRES : 1950 Requested By: MYRON DURAN Order Number: [id number] Reading MD: Dante Kim Measurements Intervals [place] Rate: 91 P: 41 SC: 154 QRS: 50 QRSD: 147 T: 8 QT: 385 QTc: 474 Interpretive Statements Sinus rhythm Right bundle branch block Electronically Signed On 10-31-2021 20:36:25 EDT by Dante Kim [facility] CARDIOLOGY Dante Kim M D - 10/31/2021 [facility] Test Date: 2021-10-31 Pat Name: ANDREW SIFUENTES Department: [facility] Room: 40 Gender: M Manager Science: ANDRES : 1950 Requested By: MYRON DURAN Order Number: [id number] Reading MD: Dante Kim Measurements Intervals [place] Rate: 91 P: 41 SC: 154 QRS: 50 QRSD: 147 T: 8 QT: 385 QTc: 474 Interpretive Statements Sinus rhythm Right bundle branch block Electronically Signed On 10-31-2021 20:36:25 EDT by Dante Kim [facility] Work Phone: EKG 12 Lead - Chest PainOrde red By: Dante Kim on 10-31-2021 [facility] Work Phone: Hemogram w/ Autodiffon 10-31 Abs Baso Cnt 0.1 10*3/uL Normal 0.0-0.2 [facility] Comment on above: Performed By: #### P T/AP, TROPN, BMP3, HEMDF #### [facility] [address] [place] [address] Abs Neutrophile Cnt 6.0 10*3/uL Normal 1.8-7.0 [facility] Comment on above: Performed By: #### P T/AP, TROPN, BMP3, HEMDF #### [facility] [address] [place] [address] Basophils/100 WBC (Bld) 1.1 % Normal 0.0-2.0 [facility] Comment on above: Performed By: #### P T/AP, TROPN, BMP3, HEMDF #### [facility] [address] [place] [address] Eosinophils (Bld) [#/Vol] 0.2 10*3/uL Normal 0.0-0.5 [facility] Comment on above: Performed By: #### P T/AP, TROPN, BMP3, HEMDF #### [address] [address] [place] [address] Eosinophils/100 WBC (Bld) 2.3 % Normal 1.0-6.0 [facility] Comment on above: Performed By: #### P T/AP, TROPN, BMP3, HEMDF #### [facility] [address] [address] [place] [address] Erythrocyte distribution width (RBC) [Ratio] 17.2 % High 11.5-14.5 [facility] Comment on above: Performed By: #### P T/AP, TROPN, BMP3, HEMDF #### [address] [place], [place] Granulocytes/100 WBC (Bld) 61.8 % Normal 40.0-80.0 [facility] Comment on above: Performed By: #### P T/AP, TROPN, BMP3, HEMDF #### [address], [place] Hematocrit (Bld) [Volume fraction] 35.0 % Low 40.0-52.0 [facility] Comment on above: Performed By: #### P T/AP, TROPN, BMP3, HEMDF #### [address] [place], [place] Hemoglobin (Bld) [Mass/Vol] 11.3 g/dL Low 13.0-18.0 [facility] Comment on above: Performed By: #### P T/AP, TROPN, BMP3, HEMDF #### [address] [address] [place], [place] Lymphocytes (Bld) [#/Vol] 2.8 10*3/uL Normal 1.0-4.3 [facility] Comment on above: Performed By: #### P T/AP, TROPN, BMP3, HEMDF #### [address] [address] [place], [place] Lymphocytes/100 WBC (Bld) 29.2 % Normal 20.0-40.0 [facility] Comment on above: Performed By: #### P T/AP, TROPN, BMP3, HEMDF #### [address] [address] [place], [place] MCH (RBC) [Entitic mass] 27.5 pg Normal 26.0-34.0 [facility] Comment on above: Performed By: #### P T/AP, TROPN, BMP3, HEMDF #### [address] [place], [place] MCHC 32.3 % Normal 32.0-36.0 [facility] Comment on above: Performed By: #### P T/AP, TROPN, BMP3, HEMDF #### [address] [place], [place] MCV (RBC) [Entitic vol] 85.0 fL Normal 80.0-98.0 [facility] Comment on above: Performed By: #### P T/AP, TROPN, BMP3, HEMDF #### [address] [address] [place], [place] Monocytes (Bld) [#/Vol] 0.5 10*3/uL Normal 0.0-0.8 [facility] Comment on above: Performed By: #### P T/AP, TROPN, BMP3, HEMDF #### [address] [place], [place] Monocytes/100 WBC (Bld) 5.6 % Normal 2.0-10.0 [facility] Comment on above: Performed By: #### P T/AP, TROPN, BMP3, HEMDF #### [address] [place], [place] Platelet mean volume (Bld) [Entitic vol] 8.6 fL Normal 7.4-12.4 [facility] Comment on above: Result Comment: MPV is a calculated measurement using platelet volume ratio. Performed By: #### P T/AP, TROPN, BMP3, HEMDF #### [address] [place], [place] Platelets (Bld) [#/Vol] 348 10*3/uL Normal 140-440 [facility] Comment on above: Performed By: #### P T/AP, TROPN, BMP3, HEMDF #### [address] [place], [place] RBC (Bld) [#/Vol] 4.12 10*6/uL Low 4.40-5.90 [facility] Comment on above: Performed By: #### P T/AP, TROPN, BMP3, HEMDF #### [address] [place], [place] WBC (Bld) [#/Vol] 9.7 10*3/uL Normal 3.6-10.7 [facility] Comment on above: Performed By: #### P T/AP, TROPN, BMP3, HEMDF #### [facility] [address] [place] [address] Laboratory - Coagulationon 0 10-31-2021 INR Coag (Bld) [Relative time] 2.0 {INR} [facility] Work Phone: Comment on above: Critical Value > 4.0 No Panel Informationon 10-31 Radiology Study observation (narrative) [facility] Work Phone: PROTIME/INR & PTTon 11-01-19 aPTT Coag (Bld) [Time] 39.2 s High 20.0 - 30.5 s [facility] Comment on above: NOTE: The therapeuti c time for Heparin anticoagulation, based on Xa activity inhibition, is an APTT of 46-80 seconds. INR Coag (Bld) [Relative time] 1.9 {INR} High [facility] Comment on above: Recommended Anticoag ulant [...] Interpretation and review of laboratory results Abnormal [facility] PT Coag (PPP) [Time] 19.8 s High 9.0 - 12.0 s [facility] Comment on above: . Test Performed by [facility], [address] [place] [address] [facility] Protime AND APTTon aPTT Coag (Bld) [Time] 39.2 s High 20.0-30.5 [facility] Comment on above: Result Comment: NOTE : The therapeutic time for Heparin anticoagulation, based on Xa activity inhibition, is an APTT of 46-80 seconds. Performed By: #### P T/AP, TROPN, BMP3, HEMDF #### [address] [address] INR 1.9 High 0.9-1.1 [facility] Comment on above: Result Comment: Harry [...] #### P T/AP, TROPN, BMP3, HEMDF #### [address] [address] PT Coag (PPP) [Time] 19.8 s High 9.0-12.0 [facility] Comment on above: Result Comment: . Performed By: #### P T/AP, TROPN, BMP3, HEMDF #### [address] [address] Troponin Ion 10-31-2021 Troponin I.cardiac [Mass/Vol] ng/mL Normal 0.000-0.034 [facility] Comment on above: Result Comment: . Performed By: #### P T/AP, TROPN, BMP3, HEMDF #### [address] [address] Troponin x1on 10-31-2021 Troponin I.cardiac [Mass/Vol] ng/mL 0.000 - 0.034 ng/mL [facility] Comment on above: . Test Performed by [facility], [address] [place] [id number] [place] [address] LAB [facility] Whole blood prothrombin time on 10-31-2021 PT Coag (Bld) [Time] 23.7 s 11.7-14.9 [facility] Work Phone: XR ABDOMEN (KUB) (SINGLE AP VIEW)on 10-31-2021 Patient Name: ANDREW SIFUENTES Diagnostic Radiology ACCESSION EXAM DATE/TIME PROCEDURE ORDERING PROVIDER [id number] 10/31/2021 20:36 EDT CR Abdomen AP [id number] MYRON GALINDO CPT code 11081 Reason For Exam (CR Abdomen AP) svp digital sales shunt, 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 CHEST PORTABLE [...] WENDELL Transcribed Date and Time: 10/31/2021 8:49 [facility] Huang Reynoso MD - 10/31/2021 Patient Name: ANDREW SIFUENTES Diagnostic Radiology ACCESSION EXAM DATE/TIME PROCEDURE ORDERING PROVIDER [id number] 10/31/2021 20:36 EDT CR Abdomen AP [id number] MYRON GALINDO CPT code 39179 Reason For Exam (CR Abdomen AP) svp digital sales shunt, 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 CHEST PORTABLE [...] Radiology ACCESSION EXAM DATE/TIME PROCEDURE ORDERING PROVIDER [id number] 10/31/2021 20:36 EDT CR Chest Portable [id number] MYRON GALINDO CPT code 06794 Reason For Exam (CR Chest Portable) AMS [...] WENDELL Transcribed Date and Time: 10/31/2021 8:49 [facility] Huang Reynoso MD - 10/31/2021 Patient Name: ANDREW SIFUENTES Diagnostic Radiology ACCESSION EXAM DATE/TIME PROCEDURE ORDERING PROVIDER [id number] 10/31/2021 20:36 EDT CR Chest Portable [id number] JOSIE MYRON CPT code 85191 Reason For Exam (CR Chest Portable) AMS [...] DRVVT Confirmation Test Not Applicable Negative ratio [facility] Work Phone: [phone] dRVVT Screen 38 [facility] Work Phone: [phone] Hex Phosph Neut Test Not Applicable Negative NA [facility] Work Phone: [phone] Interpretation and review of laboratory results Abnormal [facility] Work Phone: 1 LUPUS INTERPRETATION See Note [...] has not already been performed. Performed by [facility], [address] [place] [address] [email or web address], Quiana Castro MD - Lab. Director Platelet Neutralization Not Applicable Negative NA [facility] Work Phone: [phone] PTT-D Heparin Neutralized 48 [facility] Work Phone: [phone] PTT-LA 55 High [facility] Work Phone: 1 Reptilase Tm 17.6 <=21.9 sec [facility] Work Phone: [phone] Thrombin Time 25.3 High [facility] Work Phone: [phone] [facility] Work Phone: [phone] Lupus Anticoagulant Reflexiv e Panelon 10-29-2021 aPTT Coag (Bld) [Time] 55 s High 32-48 [facility] Comment on above: Performed By: #### C OVAG #### [facility] [address] [place] [address] aPTT Coag (Bld) [Time] 48 s Normal 32-48 [facility] Comment on above: Performed By: #### C OVAG #### [facility] [address] [place] [address] DRVVT 1:1 Mix Not Applicable Normal 33-44 [facility] Work Phone: Comment on above: Performed By: #### C OVAG #### [facility] [address] [place] [address] dRVVT Confirmation Not Applicable Normal Negative [facility] Comment on above: Performed By: #### C OVAG #### [facility] [address] [place] [address] dRVVT Screen 38 sec Normal 33-44 [facility] Comment on above: Performed By: #### C OVAG #### [facility] [address] [place] [address] Hexagonal Phospholipid Neutral Reflex Not Applicable Normal Negative [facility] Comment on above: Performed By: #### C OVAG #### [facility] [address] [place] [address] Lupus Anticoagulant Interpretation See Note Normal [facility] Comment on above: Result Comment: Lupu [...] has not already been performed. Performed by [facility], [address] [place] [address] [email or web address], Quiana Castro MD - Lab. Director Performed By: #### C OVAG #### [facility] [address] [place] [address] Platelet Neutralization (PTT-D, Confirm) Not Applicable Normal Negative [facility] Comment on above: Performed By: #### C OVAG #### [facility] [address] [place] [address] PT Coag (PPP) [Time] 14.7 s Normal 12.0-15.5 [facility] Work Phone: Comment on above: Performed By: #### C OVAG #### [facility] [address] [place] [address] PTT-D 1:1 Mix Not Applicable Normal 32-48 [facility] Work Phone: Comment on above: Performed By: #### C OVAG #### [facility] [address] [place] [address] Reptilase Time 17.6 sec Normal <=21.9 [facility] Comment on above: Performed By: #### C OVAG #### [facility] [address] [place] [place] [address] Thrombin Time 25.3 sec High 14.7-19.5 [facility] Comment on above: Performed By: #### C OVAG #### [facility] [address] [place] [address] POCT COVID-19, Antigenon SARS-CoV-2 Nucleocapsid Antigen Negative Negative [facility] Comment on above: A negative result does not rule out the possibility of SARS-CoV-2 infection. NAAT-based methods should be considered for symptomatic patients presenting greater than seven days after onset of symptoms. Method: Lateral flow immunoassay. Fact sheets for healthcare providers and patients can be found at the following sites: https://www.fda.gov/media/038352/download https://www.fda.gov/media/617446/download Test Performed by [facility], [address] LAB [facility] Prothrombin Timeon 2 INR 2.7 High 0.9-1.1 [facility] Comment on above: Result Comment: Harry [...] Infarction Performed By: #### P T #### [facility] [address] [place] [address] PT Coag (PPP) [Time] 27.4 s High 9.0-12.0 [facility] Comment on above: Result Comment: . Performed By: #### P T #### [facility] [address] [place] [address] Protime-INRon 10-29-2021 INR Coag (Bld) [Relative time] 2.7 {INR} High [facility] Work Phone: Comment on above: Recommended [...] Interpretation and review of laboratory results Abnormal [facility] Work Phone: PT Coag (PPP) [Time] 27.4 s High 9.0 - 12.0 s [facility] Work Phone: Comment on above: . Test Performed by [facility], [address] [place], [place], [place] [address] [facility] Work Phone: SARS-CoV-2 Antigenon 022 SARS-CoV-2 Antigen Negative Normal Negative [facility] Comment on above: Result Comment: A negative result does not rule out the possibility of SARS-CoV-2 infection. NAAT-based methods should be considered for symptomatic patients presenting greater than seven days after onset of symptoms. Method: Lateral flow immunoassay. Fact sheets for healthcare providers and patients can be found at the following sites: https://www.fda.gov/media/575419/download https://www.fda.gov/media/261038/download Performed By: #### C OVAG #### [facility] [address] [place] [address] CBCon 10-28-2021 Hematocrit (Bld) [Volume fraction] 33.4 % Low 40.0 - 52.0 % [facility] Work Phone: 1 Hemoglobin (Bld) [Mass/Vol] 11.0 g/dL Low 13.0 - 18.0 g/dL [facility] Work Phone: ) Interpretation and review of laboratory results Abnormal [facility] Work Phone: MCH (RBC) [Entitic mass] 27.8 pg 26.0 - 34.0 pg [facility] Work Phone: ) MCHC (RBC) [Mass/Vol] 32.8 % 32.0 - 36.0 % [facility] Work Phone: MCV (RBC) [Entitic vol] 84.8 fL 80.0 - 98.0 fL [facility] Work Phone: ) Platelet distribution width (Bld) [Ratio] 17.1 % High 11.5 - 14.5 % [facility] Work Phone: Platelet mean volume (Bld) [Entitic vol] 8.3 fL 7.4 - 12.4 fL [facility] Work Phone: ) Comment on above: MPV is a calculated measurement using platelet volume ratio. Platelets (Bld) [#/Vol] 344 10*3/uL 140 - 440 10*3/uL [facility] Work Phone: 1() RBC (Bld) [#/Vol] 3.94 10*6/uL Low 4.40 - 5.9 0 10*6/uL [facility] Work Phone: 1() WBC (Bld) [#/Vol] 10.0 10*3/uL 3.6 - 10.7 10*3/uL [facility] Work Phone: () Test Performed by [facility], [address], [place], [place] [address] [facility] Work Phone: () Comp Metabolic Panelon 10-28 ALP [Catalytic activity/Vol] 103 U/L Normal 38-126 [facility] Comment on above: Performed By: #### C A19O, LUPUS #### The performing lab is in the report. #### NSEO #### [facility] #### HEMDF, LDH3, BMP3, MG3, PT, CEA2 #### [facility] [address] [place] [address] #### B2GPM, B2GPA, B2GPG #### [address] ALT [Catalytic activity/Vol] 26 U/L Normal 0-49 [facility] Comment on above: Result Comment: The ALT test is performed by an updated assay method. Please note that the reference intervals have been changed and are now sex specific. Performed By: #### C A19O, LUPUS #### The performing lab is in the report. #### NSEO #### [facility] #### HEMDF, LDH3, BMP3, MG3, PT, CEA2 #### [address] [place] [address] #### B2GPM, B2GPA, B2GPG #### [address] AST [Catalytic activity/Vol] 24 U/L Normal 15-46 [facility] Comment on above: Performed By: #### C A19O, LUPUS #### The performing lab is in the report. #### NSEO #### [facility] #### HEMDF, LDH3, BMP3, MG3, PT, CEA2 #### [address] [place] [address] #### B2GPM, B2GPA, B2GPG #### [address] Calcium [Mass/Vol] 9.1 mg/dL Normal 8.4-10.4 [facility] Comment on above: Performed By: #### C A19O, LUPUS #### The performing lab is in the report. #### NSEO #### [facility] #### HEMDF, LDH3, BMP3, MG3, PT, CEA2 #### [place] [address] [place] [address] #### B2GPM, B2GPA, B2GPG #### [address] Glucose [Mass/Vol] 117 mg/dL High 70-100 [facility] Comment on above: Performed By: #### C A19O, LUPUS #### The performing lab is in the report. #### NSEO #### [facility] #### HEMDF, LDH3, BMP3, MG3, PT, CEA2 #### [place] [address] [place] [address] #### B2GPM, B2GPA, B2GPG #### [address] Urea nitrogen [Mass/Vol] 16 mg/dL Normal 7-17 [facility] Comment on above: Performed By: #### C A19O, LUPUS #### The performing lab is in the report. #### NSEO #### [facility] #### HEMDF, LDH3, BMP3, MG3, PT, CEA2 #### [place] [address] [place] [address] #### B2GPM, B2GPA, B2GPG #### [address] Anion gap [Moles/Vol] 5 mmol/L Normal 3-13 [facility] Comment on above: Performed By: #### C A19O, LUPUS #### The performing lab is in the report. #### NSEO #### [facility] #### HEMDF, LDH3, BMP3, MG3, PT, CEA2 #### [place] [address] [place] [address] #### B2GPM, B2GPA, B2GPG #### [address] Bilirubin [Mass/Vol] 0.4 mg/dL Normal 0.2-1.3 [facility] Comment on above: Performed By: #### C A19O, LUPUS #### The performing lab is in the report. #### NSEO #### [facility] #### HEMDF, LDH3, BMP3, MG3, PT, CEA2 #### [facility] [address] [place] [address] #### B2GPM, B2GPA, B2GPG #### [address] CO2 [Moles/Vol] 29 mmol/L Normal 22-30 [facility] Comment on above: Performed By: #### C A19O, LUPUS #### The performing lab is in the report. #### NSEO #### [facility] #### HEMDF, LDH3, BMP3, MG3, PT, CEA2 #### [facility] [address] [place] [address] #### B2GPM, B2GPA, B2GPG #### [address] Creatinine [Mass/Vol] 0.71 mg/dL Normal 0.52-1.25 [facility] Comment on above: Performed By: #### C A19O, LUPUS #### The performing lab is in the report. #### NSEO #### [facility] #### HEMDF, LDH3, BMP3, MG3, PT, CEA2 #### [facility] [address] [place] [address] #### B2GPM, B2GPA, B2GPG #### [address] eGFR OTHER > 90.0 Normal >60 [facility] Comment on above: Result Comment: KDIG [...] HEMDF, LDH3, BMP3, MG3, PT, CEA2 #### [facility] [address] [place] [address] #### B2GPM, B2GPA, B2GPG #### [address] [address] GFR/1.73 sq M.predicted among blacks MDRD (S/P/Bld) [Vol rate/Area] mL/min/{1.73_m2} Normal >60 [facility] Comment on above: Performed By: #### C A19O, LUPUS #### The performing lab is in the report. #### NSEO #### [facility] #### HEMDF, LDH3, BMP3, MG3, PT, CEA2 #### [facility] [address] [place] #### B2GPM, B2GPA, B2GPG #### [address] [address] Protein [Mass/Vol] 7.1 g/dL Normal 6.3-8.2 [facility] Comment on above: Performed By: #### C A19O, LUPUS #### The performing lab is in the report. #### NSEO #### [facility] #### HEMDF, LDH3, BMP3, MG3, PT, CEA2 #### [facility] [address] [place], [place] #### B2GPM, B2GPA, B2GPG #### [address] Potassium [Moles/Vol] 3.5 mmol/L Normal 3.5-5.1 [facility] Comment on above: Performed By: #### C A19O, LUPUS #### The performing lab is in the report. #### NSEO #### [facility] #### HEMDF, LDH3, BMP3, MG3, PT, CEA2 #### [facility] [address] [place] [address] #### B2GPM, B2GPA, B2GPG #### [address] Sodium [Moles/Vol] 138 mmol/L Normal 135-145 [facility] Comment on above: Performed By: #### C A19O, LUPUS #### The performing lab is in the report. #### NSEO #### [facility] #### HEMDF, LDH3, BMP3, MG3, PT, CEA2 #### [place] [address] [place] [address] #### B2GPM, B2GPA, B2GPG #### [address] Albumin [Mass/Vol] 3.7 g/dL Normal 3.5-5.0 [facility] Comment on above: Performed By: #### C A19O, LUPUS #### The performing lab is in the report. #### NSEO #### [facility] #### HEMDF, LDH3, BMP3, MG3, PT, CEA2 #### [place] [address] [place] [address] #### B2GPM, B2GPA, B2GPG #### [address] Chloride [Moles/Vol] 104 mmol/L Normal 98-107 [facility] Comment on above: Performed By: #### C A19O, LUPUS #### The performing lab is in the report. #### NSEO #### [facility] #### HEMDF, LDH3, BMP3, MG3, PT, CEA2 #### [employer] [address] [place] [address] #### B2GPM, B2GPA, B2GPG #### [facility] [address] [address] Comprehensive Metabolic Pane kiel 10-28-2021 Albumin [Mass/Vol] 3.7 g/dL 3.5 - 5.0 g/dL [facility] Work Phone: ALP (Bld) [Catalytic activity/Vol] 103 U/L 38 - 126 U/L [facility] Work Phone: [phone] ALT [Catalytic activity/Vol] 26 U/L 0 - 49 U/L [employer] Work Phone: Comment on above: The ALT test is perf ormed by an updated assay method. Please note that the reference intervals have been changed and are now sex specific. Anion gap [Moles/Vol] 5 mmol/L 3 - 13 mmol/L [facility] Work Phone: AST [Catalytic activity/Vol] 24 U/L 15 - 46 U/L [facility] Work Phone: [phone] Bilirubin [Mass/Vol] 0.4 mg/dL 0.2 - 1 .3 mg/dL [facility] Work Phone: [phone] Calcium [Mass/Vol] 9.1 mg/dL 8.4 - 10. 4 mg/dL [facility] Work Phone: [phone] Chloride [Moles/Vol] 104 mmol/L 98 - 10 7 mmol/L [facility] Work Phone: [phone] CO2 [Moles/Vol] 29 mmol/L 22 - 30 mmol/L [facility] Work Phone: [phone] Creatinine [Mass/Vol] 0.71 mg/dL 0.52 - 1.25 mg/dL [facility] Work Phone: [phone] EGFR IF NonAfrican Citizen Of [place] >90.0 >60 mL/min [facility] Work Phone: [phone] Comment on above: KDIGO guidelines pro vide [...] fraction] 7.1 g/dL 6.3 - 8.2 g/dL [facility] Work Phone: GFR/1.73 sq M.predicted among blacks MDRD (S/P/Bld) [Vol rate/Area] mL/min/{1.73_m2} >60 mL/min [facility] Work Phone: Glucose [Mass/Vol] 117 mg/dL High 70 - 100 mg/dL [facility] Work Phone: Interpretation and review of laboratory results Abnormal [facility] Work Phone: Potassium [Moles/Vol] 3.5 mmol/L 3.5 - 5.1 mmol/L [facility] Work Phone: Sodium [Moles/Vol] 138 mmol/L 135 - 145 mmol/L [facility] Work Phone: Urea nitrogen (BldV) [Mass/Vol] 16 mg/dL 7 - 17 mg/dL [facility] Work Phone: [phone] Test Performed by [facility], [address], [place], [place] [address] [facility] Work Phone: [phone] Hemogramon 10-28-2021 Erythrocyte distribution width (RBC) [Ratio] 17.1 % High 11.5-14.5 [facility] Comment on above: Performed By: #### C A19O, LUPUS #### The performing lab is in the report. #### NSEO #### [facility] #### HEMDF, LDH3, BMP3, MG3, PT, CEA2 #### [place] [address] [place] #### B2GPM, B2GPA, B2GPG #### [address] Hematocrit (Bld) [Volume fraction] 33.4 % Low 40.0-52.0 [facility] Comment on above: Performed By: #### C A19O, LUPUS #### The performing lab is in the report. #### NSEO #### [facility] #### HEMDF, LDH3, BMP3, MG3, PT, CEA2 #### [address] [place] #### B2GPM, B2GPA, B2GPG #### [address] Hemoglobin (Bld) [Mass/Vol] 11.0 g/dL Low 13.0-18.0 [facility] Comment on above: Performed By: #### C A19O, LUPUS #### The performing lab is in the report. #### NSEO #### [facility] #### HEMDF, LDH3, BMP3, MG3, PT, CEA2 #### [address] [place] #### B2GPM, B2GPA, B2GPG #### [address] MCH (RBC) [Entitic mass] 27.8 pg Normal 26.0-34.0 [facility] Comment on above: Performed By: #### C A19O, LUPUS #### The performing lab is in the report. #### NSEO #### [facility] #### HEMDF, LDH3, BMP3, MG3, PT, CEA2 #### [address] [place] #### B2GPM, B2GPA, B2GPG #### [address] MCHC 32.8 % Normal 32.0-36.0 [facility] Comment on above: Performed By: #### C A19O, LUPUS #### The performing lab is in the report. #### NSEO #### [facility] #### HEMDF, LDH3, BMP3, MG3, PT, CEA2 #### [facility] [address] [place] #### B2GPM, B2GPA, B2GPG #### [address] MCV (RBC) [Entitic vol] 84.8 fL Normal 80.0-98.0 [facility] Comment on above: Performed By: #### C A19O, LUPUS #### The performing lab is in the report. #### NSEO #### [facility] #### HEMDF, LDH3, BMP3, MG3, PT, CEA2 #### [facility] [address] [place] #### B2GPM, B2GPA, B2GPG #### [address] Platelet mean volume (Bld) [Entitic vol] 8.3 fL Normal 7.4-12.4 [facility] Comment on above: Result Comment: MPV is a calculated measurement using platelet volume ratio. Performed By: #### C A19O, LUPUS #### The performing lab is in the report. #### NSEO #### [facility] #### HEMDF, LDH3, BMP3, MG3, PT, CEA2 #### [facility] [address] [place] #### B2GPM, B2GPA, B2GPG #### [address] Platelets (Bld) [#/Vol] 344 10*3/uL Normal 140-440 [facility] Comment on above: Performed By: #### C A19O, LUPUS #### The performing lab is in the report. #### NSEO #### [facility] #### HEMDF, LDH3, BMP3, MG3, PT, CEA2 #### [facility] [address] [place] [address] #### B2GPM, B2GPA, B2GPG #### [address] RBC (Bld) [#/Vol] 3.94 10*6/uL Low 4.40-5.90 [facility] Comment on above: Performed By: #### C A19O, LUPUS #### The performing lab is in the report. #### NSEO #### [facility] #### HEMDF, LDH3, BMP3, MG3, PT, CEA2 #### [facility] [address] [place] [address] #### B2GPM, B2GPA, B2GPG #### [address] WBC (Bld) [#/Vol] 10.0 10*3/uL Normal 3.6-10.7 [facility] Comment on above: Performed By: #### C A19O, LUPUS #### The performing lab is in the report. #### NSEO #### [facility] #### HEMDF, LDH3, BMP3, MG3, PT, CEA2 #### [facility] [address] [place] [address] #### B2GPM, B2GPA, B2GPG #### [address] Neuron Specific Enolaseon Neuron Specific Enolase 20.8 Normal [facility] Comment on above: Result Comment: Neur on Specific Enolase, Serum 20.8 ng/mL H (Ref Interval: <=12.7) NSE and Hgb are elevated in the specimen. The elevated NSE may be a result of hemolysis as NSE is expressed in red blood cells. Interpret results with caution. INTERPRETIVE INFORMATION: Neuron Specific Enolase in Serum This assay is performed using the [employer] NSE Kryptor Immunoassay. Results obtained with different assay methods or kits cannot be used interchangeably. Results cannot be interpreted as absolute evidence of the presence or absence of malignant disease. This test was developed and its performance characteristics determined by [facility]. It has not been cleared or approved by the US Food and Drug Administration. This test was performed in a CLIA certified laboratory and is intended for clinical purposes. Performed By: #### C OVAG #### [facility] [address] [place] [address] Neuron specific enolase (NSE )on 10-28-2021 Neuron Specific Enolase 20.8 [facility] Work Phone: Comment on above: Neuron Specific Enol ase, Serum 20.8 ng/mL H (Ref Interval: <=12.7) NSE and Hgb are elevated in the specimen. The elevated NSE may be a result of hemolysis as NSE is expressed in red blood cells. Interpret results with caution. INTERPRETIVE INFORMATION: Neuron Specific Enolase in Serum This assay is performed using the [employer] NSE Kryptor Immunoassay. Results obtained with different assay methods or kits cannot be used interchangeably. Results cannot be interpreted as absolute evidence of the presence or absence of malignant disease. This test was developed and its performance characteristics determined by [employer]. It has not been cleared or approved by the US Food and Drug Administration. This test was performed in a CLIA certified laboratory and is intended for clinical purposes. 1 [facility] Work Phone: Prothrombin Timeon 2 INR 3.1 High 0.9-1.1 [facility] Comment on above: Result Comment: Harry [...] HEMDF, LDH3, BMP3, MG3, PT, CEA2 #### [facility] [address] [place] [address] #### B2GPM, B2GPA, B2GPG #### [address] [phone] PT Coag (PPP) [Time] 30.8 s High 9.0-12.0 [facility] Comment on above: Result Comment: . Performed By: #### C A19O, LUPUS #### The performing lab is in the report. #### NSEO #### [facility] #### HEMDF, LDH3, BMP3, MG3, PT, CEA2 #### [facility] [address] [place] [address] #### B2GPM, B2GPA, B2GPG #### [address] [address] [place] [address] Protime-INRon 10-28-2021 INR Coag (Bld) [Relative time] 3.1 {INR} High [facility] Work Phone: Comment on above: Recommended [...] Interpretation and review of laboratory results Abnormal [facility] Work Phone: PT Coag (PPP) [Time] 30.8 s High 9.0 - 12.0 s [facility] Work Phone: Comment on above: . Test Performed by [facility], [address] [facility] [place], [place] [address] [facility] Work Phone: MRI BRAIN WO CONTRASTon 10-06 [facility]: [id number] Imaging ACCESSION EXAM DATE/TIME PROCEDURE ORDERING PROVIDER [id number] 10/27/2021 13:14 EDT MRI Brain w/o Contrast UNASSIGNED, UNASSIGNED CPT code 01286 Reason For Exam (MRI Brain w/o Contrast) stroke Patient has PROVIDER SCRIBE shunt in place, please follow Radiology protocol [...] RAMOS Transcribed Date and Time: 10/27/2021 2:39 [facility]Y [facility]ENDARIZ [facility] Venus Loyd MD - 10/27/2021 Patient Name: [facility] [id number] Magnetic Resonance Imaging ACCESSION EXAM DATE/TIME PROCEDURE ORDERING PROVIDER [id number] 10/27/2021 13:14 EDT MRI Brain w/o Contrast UNASSIGNED, UNASSIGNED CPT code 33679 Reason For Exam (MRI Brain w/o Contrast) stroke Patient has PROVIDER SCRIBE shunt in place, please follow Radiology protocol [...] Brain w/o Contrast Patient Name: [facility]Z [id number] Magnetic Resonance Imaging ACCESSION EXAM DATE/TIME PROCEDURE ORDERING PROVIDER [id number] 10/27/2021 13:14 EDT MRI Brain w/o Contrast UNASSIGNED, UNASSIGNED CPT code 08179 Reason For Exam (MRI Brain w/o Contrast) stroke Patient has PROVIDER SCRIBE shunt in place, please follow Radiology protocol [...] Transcribed Date and Time: 10/27/2021 2:39 Normal [facility] Prothrombin Timeon INR 2.1 High 0.9-1.1 [facility] Comment on above: Result Comment: Harry [...] Infarction Performed By: #### P T #### [address] [place] [address] PT Coag (PPP) [Time] 21.9 s High 9.0-12.0 [facility] Work Phone: Comment on above: . Result Comment: . Performed By: #### P T #### [address] [place] [address] Protime-INRon 10-27-2021 INR Coag (Bld) [Relative time] 2.1 {INR} High [facility] Work Phone: Comment on above: Recommended [...] Interpretation and review of laboratory results Abnormal [facility] Work Phone: Test Performed by [facility], [address], [place], [place] [address] [facility] Work Phone: CT HEAD WO CONTRASTon 2021 Patient Name: ANDREW SIFUENTES Computed Tomography ACCESSION EXAM DATE/TIME PROCEDURE ORDERING PROVIDER [id number] 10/26/2021 11:[address] Head or Brain w/o JUNIE PINEDA, SARINA Contrast CPT code 33930 Reason For Exam (CT Head or Brain w/o Contrast) hydrocephalus. thank you Report CLINICAL INFORMATION: Hydrocephalus. Shunt. 3 mm axial cuts through the head are obtained without IV contrast. The examination is compared to a previous study dated 06/29/2014. FINDINGS: Old PROVIDER SCRIBE shunt tubing is noted bilaterally. The new [...] are clear. IMPRESSION: 1. Old and new PROVIDER SCRIBE shunt tubing. 2. No hydrocephalus. 3. Atrophy and evidence of small-vessel ischemic disease. 4. No CT evidence of an acute intracranial process. Report Dictated on --- Final --- Dictating Physician: MD SOLANO JEFFREY Signed Date and Time: 10/26/2021 11:42 am Signed by: MD SOLANO JEFFREY Transcribed Date and Time: 10/26/2021 11:43 [facility] Albert Solano MD - 10/26/2021 Patient Name: ANDREW SIFUENTES Computed Tomography ACCESSION EXAM DATE/TIME PROCEDURE ORDERING PROVIDER [id number] 10/26/2021 11:[address] Head or Brain w/o EDWIN, RECORDS SECTION SUPERVISOR, SARINA Contrast CPT code 98989 Reason For Exam (CT Head or Brain w/o Contrast) hydrocephalus. thank you Report CLINICAL INFORMATION: Hydrocephalus. Shunt. 3 mm axial cuts through the head are obtained without IV contrast. The examination is compared to a previous study dated 06/29/2014. FINDINGS: Old PROVIDER SCRIBE shunt tubing is noted bilaterally. The new [...] are clear. IMPRESSION: 1. Old and new PROVIDER SCRIBE shunt tubing. 2. No hydrocephalus. 3. Atrophy [...] Tomography ACCESSION EXAM DATE/TIME PROCEDURE ORDERING PROVIDER [id number] 10/26/2021 11:[address] Head or Brain w/o EDWIN, RECORDS SECTION SUPERVISOR, SARINA Contrast CPT code 56695 Reason For Exam (CT Head or Brain w/o Contrast) hydrocephalus. thank you Report CLINICAL INFORMATION: Hydrocephalus. Shunt. 3 mm axial cuts through the head are obtained without IV contrast. The examination is compared to a previous study dated 06/29/2014. FINDINGS: Old PROVIDER SCRIBE shunt tubing is noted bilaterally. The new [...] are clear. IMPRESSION: 1. Old and new PROVIDER SCRIBE shunt tubing. 2. No hydrocephalus. 3. Atrophy and evidence of small-vessel ischemic disease. 4. No CT evidence of an acute intracranial process. 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 Barreto REASON FOR EXAM: seizures HISTORY: Andrew Sifuentes is a 71 y.o. male with history of obstructive hydrocephalus s/p PROVIDER SCRIBE shunt in 1987, needing multiple revisions and [...] normal limits and both old and new PROVIDER SCRIBE shunt tubing noted. At present patient is awake, follows commands, was able to tell his name, and that he was in hospital but not oriented to time. Per documentation patient had NCSE in May 2021, was on Vimpat, but it was discontinued as there was no evidence of recurrent seizures in July 2021 by Neurology at [facility], per daughter patient was on Dilantin for 31 yrs. Per daughter patient had seizures in the past and also felt he had staring episodes this morning. Per daughter patient has been essentially bed bound in [place] since May 2021 but prior to that [...] study with video was carried out at [facility]. Scalp electrodes were positioned in person by an apparatus engineering technologist, following patient education, according to the 10-20 International system of electrode placement and maintained for integrity and quality of the recording. EEG data with video was recorded continuously and digitally stored. The apparatus engineering technologist reviewed all automated detections and [...] No normal vari (more content not included)... [facility] Work Phone: [facility] Work Phone: No Panel Informationon 10-26 Radiology Study observation (narrative) [facility] Work Phone: Prothrombin Timeon INR 1.9 High 0.9-1.1 [facility] Comment on above: Result Comment: Harry [...] Infarction Performed By: #### C OVAG #### [facility] [address] [place] [address] PT Coag (PPP) [Time] 19.7 s High 9.0-12.0 [facility] Comment on above: Result Comment: . Performed By: #### C OVAG #### [facility] [address] [place] [address] Protime-INRon 10-26-2021 INR Coag (Bld) [Relative time] 1.9 {INR} High [facility] Work Phone: Comment on above: Recommended [...] Interpretation and review of laboratory results Abnormal [facility] Work Phone: PT Coag (PPP) [Time] 19.7 s High 9.0 - 12.0 s [facility] Work Phone: Comment on above: . Test Performed by [place] [facility], [address] [place], [place] [address] [facility] Work Phone: CA 19-9on 10-25-2021 CA 19-9 17 U/mL Normal <=35 [facility] Work Phone: Comment on above: INTERPRETIVE [...] or absence of malignant disease. Performed By: [facility] [address] [place] [address] Can Worker: Quiana Castro MD Result Comment: INTE RPRETIVE [...] or absence of malignant disease. Performed By: [facility] [address] [place] [address] Can Worker: Quiana Castro MD Performed By: #### C OVAG #### [employer] [facility] [address] [place] [address] Cancer Antigen 19-9on 2021 [facility] Work Phone: Prothrombin Timeon 2 INR 1.5 High 0.9-1.1 [facility] Comment on above: Result Comment: Harry mmended [...] Infarction Performed By: #### P T #### [facility] [address] [place] [address] PT Coag (PPP) [Time] 15.6 s High 9.0-12.0 [facility] Comment on above: Result Comment: . Performed By: #### P T #### [facility] [address] [place] [address] Protime-INRon 10-25-2021 INR Coag (Bld) [Relative time] 1.5 {INR} High [facility] Work Phone: Comment on above: Recommended Anticoag [...] Interpretation and review of laboratory results Abnormal [facility] Work Phone: PT Coag (PPP) [Time] 15.6 s High 9.0 - 12.0 s [facility] Work Phone: Comment on above: . Test Performed by [place] [facility], [address] [place], [place], [place] [address] [facility] Work Phone: B-2 Glycoprotein (IGA)on Beta-2 Glyco 1 IgA <2.0 U/mL [facility] Work Phone: Comment on above: Interpretive Informa tion: Results equal to or greater than 20 U/mL = POSITIVE Results less than 20 U/mL = NEGATIVE B2 Glycoprotein I (IgM) Abon 10-24-2021 Beta-2 Glyco 1 IgM <1.5 U/mL [facility] Work Phone: Comment on above: Interpretive Informa tion: Results equal to or greater than 20 U/mL = POSITIVE Results less than 20 U/mL = NEGATIVE B2 Glycoprotein I Igg Abon 0 10-24-2021 Beta-2 Glyco 1 IgG <1.4 U/mL [facility] Work Phone: Comment on above: Interpretive Informa tion: Results equal to or greater than 20 U/mL = POSITIVE Results less than 20 U/mL = NEGATIVE Basic Metabolic Panelon 2 -2021 Anion gap [Moles/Vol] 8 mmol/L Normal 3-13 [facility] Comment on above: Performed By: #### C A19O, LUPUS #### The performing lab is in the report. #### NSEO #### [facility] #### HEMDF, LDH3, BMP3, MG3, PT, CEA2 #### [address] [place] [address] #### B2GPM, B2GPA, B2GPG #### [address] Calcium [Mass/Vol] 8.8 mg/dL Normal 8.4-10.4 [facility] Comment on above: Performed By: #### C A19O, LUPUS #### The performing lab is in the report. #### NSEO #### [facility] #### HEMDF, LDH3, BMP3, MG3, PT, CEA2 #### [address] [place] [address] #### B2GPM, B2GPA, B2GPG #### [address] CO2 [Moles/Vol] 25 mmol/L Normal 22-30 [facility] Comment on above: Performed By: #### C A19O, LUPUS #### The performing lab is in the report. #### NSEO #### [facility] #### HEMDF, LDH3, BMP3, MG3, PT, CEA2 #### [address] [place] [address] #### B2GPM, B2GPA, B2GPG #### [address] Creatinine [Mass/Vol] 0.74 mg/dL Normal 0.52-1.25 [facility] Comment on above: Performed By: #### C A19O, LUPUS #### The performing lab is in the report. #### NSEO #### [facility] #### HEMDF, LDH3, BMP3, MG3, PT, CEA2 #### [address] [place] [address] #### B2GPM, B2GPA, B2GPG #### [address] [address] eGFR OTHER > 90.0 Normal >60 [facility] Comment on above: Result Comment: KDIG [...] HEMDF, LDH3, BMP3, MG3, PT, CEA2 #### [address] [place] [address] #### B2GPM, B2GPA, B2GPG #### [address] [phone] GFR/1.73 sq M.predicted among blacks MDRD (S/P/Bld) [Vol rate/Area] mL/min/{1.73_m2} Normal >60 [facility] Comment on above: Performed By: #### C A19O, LUPUS #### The performing lab is in the report. #### NSEO #### [facility] #### HEMDF, LDH3, BMP3, MG3, PT, CEA2 #### [address] [place] [address] #### B2GPM, B2GPA, B2GPG #### [address] Glucose [Mass/Vol] 116 mg/dL High 70-100 [facility] Comment on above: Performed By: #### C A19O, LUPUS #### The performing lab is in the report. #### NSEO #### [facility] #### HEMDF, LDH3, BMP3, MG3, PT, CEA2 #### [facility] [address] [place] [address] #### B2GPM, B2GPA, B2GPG #### [address] Urea nitrogen [Mass/Vol] 19 mg/dL High 7-17 [facility] Comment on above: Performed By: #### C A19O, LUPUS #### The performing lab is in the report. #### NSEO #### [facility] #### HEMDF, LDH3, BMP3, MG3, PT, CEA2 #### [facility] [address] [place] [address] #### B2GPM, B2GPA, B2GPG #### [address] Chloride [Moles/Vol] 107 mmol/L Normal 98-107 [facility] Comment on above: Performed By: #### C A19O, LUPUS #### The performing lab is in the report. #### NSEO #### [facility] #### HEMDF, LDH3, BMP3, MG3, PT, CEA2 #### [facility] [address] [place] [address] #### B2GPM, B2GPA, B2GPG #### [address] Potassium [Moles/Vol] 3.9 mmol/L Normal 3.5-5.1 [facility] Comment on above: Performed By: #### C A19O, LUPUS #### The performing lab is in the report. #### NSEO #### [facility] #### HEMDF, LDH3, BMP3, MG3, PT, CEA2 #### [facility] [address] [place] [address] #### B2GPM, B2GPA, B2GPG #### [facility] [address] [place], [place] Sodium [Moles/Vol] 140 mmol/L Normal 135-145 [facility] Comment on above: Performed By: #### C A19O, LUPUS #### The performing lab is in the report. #### NSEO #### [facility] #### HEMDF, LDH3, BMP3, MG3, PT, CEA2 #### [facility] [address] [place] [address] #### B2GPM, B2GPA, B2GPG #### [address] Anion gap [Moles/Vol] 8 mmol/L 3 - 13 mmol/L [facility] Calcium [Mass/Vol] 8.8 mg/dL 8.4 - 10. 4 mg/dL [facility] Chloride [Moles/Vol] 107 mmol/L 98 - 10 7 mmol/L [facility] CO2 [Moles/Vol] 25 mmol/L 22 - 30 mmol/L [facility] Creatinine [Mass/Vol] 0.74 mg/dL 0.52 - 1.25 mg/dL [facility] EGFR IF NonAfrican Citizen Of [place] >90.0 >60 mL/min [facility] Comment on above: KDIGO guidelines pro vide [...] 19 mg/dL High 7 - 17 mg/dL [facility] Test Performed by [facility], [address] [facility] Beta-2 Glycoprotein I IgAon 10-24-2021 Beta-2 Glycoprotein I IgA < 2.0 Normal [facility] Comment on above: Result Comment: Inte rpretive Information: Results equal to or greater than 20 U/mL = POSITIVE Results less than 20 U/mL = NEGATIVE Performed By: #### C OVAG #### [facility] [address] [place] [address] Beta-2 Glycoprotein I IgGon 10-24-2021 Beta-2 Glycoprotein I IgG < 1.4 Normal [facility] Comment on above: Result Comment: Inte rpretive Information: Results equal to or greater than 20 U/mL = POSITIVE Results less than 20 U/mL = NEGATIVE Performed By: #### C OVAG #### [facility] [address] [place] [address] Beta-2 Glycoprotein I IgMon 10-24-2021 Beta-2 Glycoprotein I IgM < 1.5 Normal [facility] Comment on above: Result Comment: Inte rpretive Information: Results equal to or greater than 20 U/mL = POSITIVE Results less than 20 U/mL = NEGATIVE Performed By: #### C OVAG #### [facility] [address] [place] [address] No Panel Informationon 10-24 [facility] Test Performed by [facility], [address] [place] [address], [place] [address] [facility] Work Phone: PROTEIN C FUNCTIONALon 10-24 Interpretation and review of laboratory results Abnormal [facility] Protein C-Functional 185 % High 83 - 168 % [facility] Comment on above: INTERPRETIVE INFORMA TION: Protein [...] reference intervals for this test in the [facility] ([facility]). Performed by [facility], [address] [facility] [id number] [email or web address], Quiana Castro MD - Lab. Director Protein C, Functionalon 10-06 Protein C, Functional 185 % High 83-168 [facility] Comment on above: Result Comment: INTE RPRETIVE [...] reference intervals for this test in the [facility] ([facility]). Performed by [facility], [address] [facility],[place] [id number] [email or web address], Quiana Castro MD - Lab. Director Performed By: #### P T #### [facility] [address] [place] [address] Protein S, Functionalon 10-06 Protein S, Functional 138 % Normal 66-143 [facility] Comment on above: INTERPRETIVE INFORMA TION: Protein [...] reference intervals for this test in the [facility] ([facility]). Performed by [facility], [address] [place], [place] [id number] [email or web address], Quiana Castro MD - Lab. Director Result [...] reference intervals for this test in the [facility] ([facility]). Performed by [facility], [address] [place], [place] [id number] [email or web address], Quiana Castro MD - Lab. Director Performed By: #### P T #### [employer] [facility] [address] [place] [address] Prothrombin Timeon 2 INR 1.2 High 0.9-1.1 [facility] Comment on above: Result Comment: Harry mmended [...] HEMDF, LDH3, BMP3, MG3, PT, CEA2 #### [employer] [facility] [address] [place] [address] #### B2GPM, B2GPA, B2GPG #### [employer] [facility] [address] [place] [phone] PT Coag (PPP) [Time] 12.6 s High 9.0-12.0 [facility] Comment on above: Result Comment: . Performed By: #### C A19O, LUPUS #### The performing lab is in the report. #### NSEO #### [facility] #### HEMDF, LDH3, BMP3, MG3, PT, CEA2 #### [facility] [address] [place] [address] #### B2GPM, B2GPA, B2GPG #### [facility] [address] [place] [address] Protime-INRon 10-24-2021 INR Coag (Bld) [Relative time] 1.2 {INR} High [facility] Comment on above: Recommended Anticoag ulant [...] Interpretation and review of laboratory results Abnormal [facility] PT Coag (PPP) [Time] 12.6 s High 9.0 - 12.0 s [facility] Comment on above: . Test Performed by [facility], [address] [place], [place], [place] [address] [place] [address] LAB [facility] Basic Metabolic Panelon 10-05 Anion gap [Moles/Vol] 10 mmol/L Normal 3-13 [facility] Comment on above: Performed By: #### C A19O, LUPUS #### The performing lab is in the report. #### NSEO #### [facility] #### HEMDF, LDH3, BMP3, MG3, PT, CEA2 #### [facility] [address] [place] [address] #### B2GPM, B2GPA, B2GPG #### [address] [phone] Calcium [Mass/Vol] 9.6 mg/dL Normal 8.4-10.4 [facility] Comment on above: Performed By: #### C A19O, LUPUS #### The performing lab is in the report. #### NSEO #### [facility] #### HEMDF, LDH3, BMP3, MG3, PT, CEA2 #### [place] [address] [place] [address] #### B2GPM, B2GPA, B2GPG #### [address] CO2 [Moles/Vol] 27 mmol/L Normal 22-30 [facility] Comment on above: Performed By: #### C A19O, LUPUS #### The performing lab is in the report. #### NSEO #### [facility] #### HEMDF, LDH3, BMP3, MG3, PT, CEA2 #### [address] [place], [place] #### B2GPM, B2GPA, B2GPG #### [address] Glucose [Mass/Vol] 109 mg/dL High 70-100 [facility] Comment on above: Performed By: #### C A19O, LUPUS #### The performing lab is in the report. #### NSEO #### [facility] #### HEMDF, LDH3, BMP3, MG3, PT, CEA2 #### [address] [place] [address] #### B2GPM, B2GPA, B2GPG #### [address] Urea nitrogen [Mass/Vol] 18 mg/dL High 7-17 [facility] Comment on above: Performed By: #### C A19O, LUPUS #### The performing lab is in the report. #### NSEO #### [facility] #### HEMDF, LDH3, BMP3, MG3, PT, CEA2 #### [address] [place] [address] #### B2GPM, B2GPA, B2GPG #### [address] Creatinine [Mass/Vol] 0.82 mg/dL Normal 0.52-1.25 [facility] Comment on above: Performed By: #### C A19O, LUPUS #### The performing lab is in the report. #### NSEO #### [facility] #### HEMDF, LDH3, BMP3, MG3, PT, CEA2 #### [place] [address] [place] [address] #### B2GPM, B2GPA, B2GPG #### [address] GFR/1.73 sq M.predicted among blacks MDRD (S/P/Bld) [Vol rate/Area] mL/min/{1.73_m2} Normal >60 [facility] Comment on above: Performed By: #### C A19O, LUPUS #### The performing lab is in the report. #### NSEO #### [facility] #### HEMDF, LDH3, BMP3, MG3, PT, CEA2 #### [address] [place] [address] #### B2GPM, B2GPA, B2GPG #### [address] GFR/1.73 sq M.predicted among non-blacks MDRD (S/P/Bld) [Vol rate/Area] 89.9 mL/min/{1.73_m2} Normal >60 [facility] Comment on above: Result Comment: KDIG [...] HEMDF, LDH3, BMP3, MG3, PT, CEA2 #### [facility] [address] [place] [address] #### B2GPM, B2GPA, B2GPG #### [address] Chloride [Moles/Vol] 104 mmol/L Normal 98-107 [facility] Comment on above: Performed By: #### C A19O, LUPUS #### The performing lab is in the report. #### NSEO #### [facility] #### HEMDF, LDH3, BMP3, MG3, PT, CEA2 #### [facility] [address] [place] #### B2GPM, B2GPA, B2GPG #### [address] Potassium [Moles/Vol] 3.9 mmol/L Normal 3.5-5.1 [facility] Comment on above: Performed By: #### C A19O, LUPUS #### The performing lab is in the report. #### NSEO #### [facility] #### HEMDF, LDH3, BMP3, MG3, PT, CEA2 #### [facility] [address] [place] [address] #### B2GPM, B2GPA, B2GPG #### [address] [address] Sodium [Moles/Vol] 142 mmol/L Normal 135-145 [facility] Comment on above: Performed By: #### C A19O, LUPUS #### The performing lab is in the report. #### NSEO #### [facility] #### HEMDF, LDH3, BMP3, MG3, PT, CEA2 #### [facility] [address] [place] [address] #### B2GPM, B2GPA, B2GPG #### [facility] [address] [place] [address] Anion gap [Moles/Vol] 10 mmol/L 3 - 13 mmol/L [facility] Work Phone: Calcium [Mass/Vol] 9.6 mg/dL 8.4 - 10. 4 mg/dL [facility] Work Phone: [phone] Chloride [Moles/Vol] 104 mmol/L 98 - 10 7 mmol/L [facility] Work Phone: CO2 [Moles/Vol] 27 mmol/L 22 - 30 mmol/L [facility] Work Phone: Creatinine [Mass/Vol] 0.82 mg/dL 0.52 - 1.25 mg/dL [facility] Work Phone: EGFR IF NonAfrican Citizen Of [place] 89.9 mL/min >60 [facility] Work Phone: Comment on above: KDIGO guidelines [...] rate/Area] mL/min/{1.73_m2} >60 mL/min [facility] Work Phone: ) 222 Glucose [Mass/Vol] 109 mg/dL High 70 - 100 mg/dL [facility] Work Phone: ) 222 Interpretation and review of laboratory results Abnormal [facility] Work Phone: ) 222 Potassium [Moles/Vol] 3.9 mmol/L 3.5 - 5.1 mmol/L [facility] Work Phone: ) 222 Sodium [Moles/Vol] 142 mmol/L 135 - 145 mmol/L [facility] Work Phone: ) 222 Urea nitrogen (BldV) [Mass/Vol] 18 mg/dL High 7 - 17 mg/dL [facility] Work Phone: ) 222 CBC with Auto Differentialon 10-23-2021 Absolute Baso # 0.1 10*3/uL 0.0 - 0.2 10*3/uL [facility] Work Phone: ) 222 Absolute Neut # 6.6 10*3/uL 1.8 - 7.0 10*3/uL [facility] Work Phone: ) 222 Basophils/100 WBC (Bld) 1.1 % 0.0 - 2.0 % [facility] Work Phone: ) 222 Eosinophils (Bld) [#/Vol] 0.4 10*3/uL 0.0 - 0.5 10*3/uL [facility] Work Phone: ) 222 Eosinophils/100 WBC (Bld) 3.9 % 1.0 - 6.0 % [facility] Work Phone: ) 222 Granulocytes/100 WBC (Bld) 64.0 % 40.0 - 80.0 % [facility] Work Phone: 222 Hematocrit (Bld) [Volume fraction] 35.1 % Low 40.0 - 52.0 % [facility] Work Phone: ) 222 Hemoglobin (Bld) [Mass/Vol] 11.6 g/dL Low 13.0 - 18.0 g/dL [facility] Work Phone: [phone] Interpretation and review of laboratory results Abnormal [facility] Work Phone: 1() Lymphocytes (Bld) [#/Vol] 2.6 10*3/uL 1.0 - 4.3 10*3/uL [facility] Work Phone: 1() 222 Lymphocytes/100 WBC (Bld) 25.0 % 20.0 - 40.0 % [facility] Work Phone: ( MCH (RBC) [Entitic mass] 28.4 pg 26.0 - 34.0 pg [facility] Work Phone: () MCHC (RBC) [Mass/Vol] 33.1 % 32.0 - 36.0 % [facility] Work Phone: 1() MCV (RBC) [Entitic vol] 85.9 fL 80.0 - 98.0 fL [facility] Work Phone: Monocytes (Bld) [#/Vol] 0.6 10*3/uL 0.0 - 0.8 10*3/uL [facility] Work Phone: 1() 222 Monocytes/100 WBC (Bld) 6.0 % 2.0 - 10.0 % [facility] Work Phone: ( Platelet distribution width (Bld) [Ratio] 17.4 % High 11.5 - 14.5 % [facility] Work Phone: Platelet mean volume (Bld) [Entitic vol] 8.1 fL 7.4 - 12.4 fL [facility] Work Phone: () Comment on above: MPV is a calculated measurement using platelet volume ratio. Platelets (Bld) [#/Vol] 450 10*3/uL High 140 - 440 10*3/uL [facility] Work Phone: 1() 222 RBC (Bld) [#/Vol] 4.08 10*6/uL Low 4.40 - 5.9 0 10*6/uL [facility] Work Phone: ) WBC (Bld) [#/Vol] 10.3 10*3/uL 3.6 - 10.7 10*3/uL [facility] Work Phone: 1() Test Performed by [facility], [address], [place], [place] [address] [facility] Work Phone: CEAon 10-23-2021 CEA 0.8 ng/mL 0.0 - 3.0 ng/mL [facility] Work Phone: Test Performed by [facility], [address] [place], [place] [address] [facility] Work Phone: Carcinoembryonic Agon 2021 Carcinoembryonic Ag. 0.8 ng/mL Normal 0.0-3.0 [facility] Comment on above: Performed By: #### C A19O, LUPUS #### The performing lab is in the report. #### NSEO #### [facility] #### HEMDF, LDH3, BMP3, MG3, PT, CEA2 #### [facility] [address] [place] [address] #### B2GPM, B2GPA, B2GPG #### [address] [phone] Hemogram w/ Autodiffon 10-23 Abs Baso Cnt 0.1 10*3/uL Normal 0.0-0.2 [facility] Comment on above: Performed By: #### C A19O, LUPUS #### The performing lab is in the report. #### NSEO #### [facility] #### HEMDF, LDH3, BMP3, MG3, PT, CEA2 #### [facility] [address] [place] [address] #### B2GPM, B2GPA, B2GPG #### [address] Abs Neutrophile Cnt 6.6 10*3/uL Normal 1.8-7.0 [facility] Comment on above: Performed By: #### C A19O, LUPUS #### The performing lab is in the report. #### NSEO #### [facility] #### HEMDF, LDH3, BMP3, MG3, PT, CEA2 #### [facility] [address] [place] [address] #### B2GPM, B2GPA, B2GPG #### [address] Basophils/100 WBC (Bld) 1.1 % Normal 0.0-2.0 [facility] Comment on above: Performed By: #### C A19O, LUPUS #### The performing lab is in the report. #### NSEO #### [facility] #### HEMDF, LDH3, BMP3, MG3, PT, CEA2 #### [facility] [address] [place] [address] #### B2GPM, B2GPA, B2GPG #### [address] Eosinophils (Bld) [#/Vol] 0.4 10*3/uL Normal 0.0-0.5 [facility] Comment on above: Performed By: #### C A19O, LUPUS #### The performing lab is in the report. #### NSEO #### [facility] #### HEMDF, LDH3, BMP3, MG3, PT, CEA2 #### [facility] [address] [place] [address] #### B2GPM, B2GPA, B2GPG #### [address] Eosinophils/100 WBC (Bld) 3.9 % Normal 1.0-6.0 [facility] Comment on above: Performed By: #### C A19O, LUPUS #### The performing lab is in the report. #### NSEO #### [facility] #### HEMDF, LDH3, BMP3, MG3, PT, CEA2 #### [facility] [address] [place] [address] #### B2GPM, B2GPA, B2GPG #### [address] Erythrocyte distribution width (RBC) [Ratio] 17.4 % High 11.5-14.5 [facility] Comment on above: Performed By: #### C A19O, LUPUS #### The performing lab is in the report. #### NSEO #### [facility] #### HEMDF, LDH3, BMP3, MG3, PT, CEA2 #### [address] [place] [address] #### B2GPM, B2GPA, B2GPG #### [address] Granulocytes/100 WBC (Bld) 64.0 % Normal 40.0-80.0 [facility] Comment on above: Performed By: #### C A19O, LUPUS #### The performing lab is in the report. #### NSEO #### [facility] #### HEMDF, LDH3, BMP3, MG3, PT, CEA2 #### [address] [place] #### B2GPM, B2GPA, B2GPG #### [address] Hematocrit (Bld) [Volume fraction] 35.1 % Low 40.0-52.0 [facility] Comment on above: Performed By: #### C A19O, LUPUS #### The performing lab is in the report. #### NSEO #### [facility] #### HEMDF, LDH3, BMP3, MG3, PT, CEA2 #### [address] [place] #### B2GPM, B2GPA, B2GPG #### [address] Hemoglobin (Bld) [Mass/Vol] 11.6 g/dL Low 13.0-18.0 [facility] Comment on above: Performed By: #### C A19O, LUPUS #### The performing lab is in the report. #### NSEO #### [facility] #### HEMDF, LDH3, BMP3, MG3, PT, CEA2 #### [address] [place] #### B2GPM, B2GPA, B2GPG #### [address] Lymphocytes (Bld) [#/Vol] 2.6 10*3/uL Normal 1.0-4.3 [facility] Comment on above: Performed By: #### C A19O, LUPUS #### The performing lab is in the report. #### NSEO #### [facility] #### HEMDF, LDH3, BMP3, MG3, PT, CEA2 #### [address] [address] #### B2GPM, B2GPA, B2GPG #### [address] Lymphocytes/100 WBC (Bld) 25.0 % Normal 20.0-40.0 [facility] Comment on above: Performed By: #### C A19O, LUPUS #### The performing lab is in the report. #### NSEO #### [facility] #### HEMDF, LDH3, BMP3, MG3, PT, CEA2 #### [address] [place] #### B2GPM, B2GPA, B2GPG #### [address] MCH (RBC) [Entitic mass] 28.4 pg Normal 26.0-34.0 [facility] Comment on above: Performed By: #### C A19O, LUPUS #### The performing lab is in the report. #### NSEO #### [facility] #### HEMDF, LDH3, BMP3, MG3, PT, CEA2 #### [address] [place] #### B2GPM, B2GPA, B2GPG #### [address] MCHC 33.1 % Normal 32.0-36.0 [facility] Comment on above: Performed By: #### C A19O, LUPUS #### The performing lab is in the report. #### NSEO #### [facility] #### HEMDF, LDH3, BMP3, MG3, PT, CEA2 #### [facility] [address] [place], [place] #### B2GPM, B2GPA, B2GPG #### [address] MCV (RBC) [Entitic vol] 85.9 fL Normal 80.0-98.0 [facility] Comment on above: Performed By: #### C A19O, LUPUS #### The performing lab is in the report. #### NSEO #### [facility] #### HEMDF, LDH3, BMP3, MG3, PT, CEA2 #### [facility] [address] [place], [place] #### B2GPM, B2GPA, B2GPG #### [address] Monocytes (Bld) [#/Vol] 0.6 10*3/uL Normal 0.0-0.8 [facility] Comment on above: Performed By: #### C A19O, LUPUS #### The performing lab is in the report. #### NSEO #### [facility] #### HEMDF, LDH3, BMP3, MG3, PT, CEA2 #### [address] [place] #### B2GPM, B2GPA, B2GPG #### [address] Monocytes/100 WBC (Bld) 6.0 % Normal 2.0-10.0 [facility] Comment on above: Performed By: #### C A19O, LUPUS #### The performing lab is in the report. #### NSEO #### [facility] #### HEMDF, LDH3, BMP3, MG3, PT, CEA2 #### [facility] [address] [place] [address] #### B2GPM, B2GPA, B2GPG #### [address] Platelet mean volume (Bld) [Entitic vol] 8.1 fL Normal 7.4-12.4 [facility] Comment on above: Result Comment: MPV is a calculated measurement using platelet volume ratio. Performed By: #### C A19O, LUPUS #### The performing lab is in the report. #### NSEO #### [facility] #### HEMDF, LDH3, BMP3, MG3, PT, CEA2 #### [address] [place] #### B2GPM, B2GPA, B2GPG #### [address] Platelets (Bld) [#/Vol] 450 10*3/uL High 140-440 [facility] Comment on above: Performed By: #### C A19O, LUPUS #### The performing lab is in the report. #### NSEO #### [facility] #### HEMDF, LDH3, BMP3, MG3, PT, CEA2 #### [address] [facility] [place] #### B2GPM, B2GPA, B2GPG #### [address] RBC (Bld) [#/Vol] 4.08 10*6/uL Low 4.40-5.90 [facility] Comment on above: Performed By: #### C A19O, LUPUS #### The performing lab is in the report. #### NSEO #### [facility] #### HEMDF, LDH3, BMP3, MG3, PT, CEA2 #### [address] [place] [address] #### B2GPM, B2GPA, B2GPG #### [facility] [address] [place] [address] WBC (Bld) [#/Vol] 10.3 10*3/uL Normal 3.6-10.7 [facility] Comment on above: Performed By: #### C A19O, LUPUS #### The performing lab is in the report. #### NSEO #### [facility] #### HEMDF, LDH3, BMP3, MG3, PT, CEA2 #### [facility] [address] [place] [address] #### B2GPM, B2GPA, B2GPG #### [address] [phone] LDHon 10-23-2021 LDH 136 U/L Normal 120-246 [facility] Comment on above: Performed By: #### C A19O, LUPUS #### The performing lab is in the report. #### NSEO #### [facility] #### HEMDF, LDH3, BMP3, MG3, PT, CEA2 #### [facility] [address] [place] [address] #### B2GPM, B2GPA, B2GPG #### [address] [address] Lactate Dehydrogenaseon 06 LD 136 U/L 120 - 246 U/L [facility] Work Phone: MRI ABDOMEN WO CONTRASTon Patient Name: ANDREW SIFUENTES [facility] ACCESSION EXAM DATE/TIME PROCEDURE ORDERING PROVIDER [id number] 10/23/2021 11:08 EDT MRI Abdomen w/o Contrast WING SRIVASTAVA CPT code 99476 Reason For Exam (MRI Abdomen w/o Contrast) [...] Time: 10/23/2021 4:35 pm Signed by: MD CARMELO, CAMILA Transcribed Date and Time: 10/23/2021 4:36 [facility] Result, Unknown Prov ider - 10/23/2021 Patient Name: ANDREW SIFUENTES [facility] ACCESSION EXAM DATE/TIME PROCEDURE ORDERING PROVIDER [id number] 10/23/2021 11:08 EDT MRI Abdomen w/o Contrast WING SRIVASTAVA CPT code 85812 Reason For Exam (MRI Abdomen w/o Contrast) [...] VLADIMIR Transcribed Date and Time: 10/23/2021 4:36 [facility] Work Phone: MRI ABDOMEN WO CONTRASTOrder ed By: Unknown Result on 10-23-2021 [facility] MRI Abdomen w/o Contraston 0 10-23-2021 MRI Abdomen w/o Contrast Patient Name: ANDREW SIFUENTES [facility] ACCESSION EXAM DATE/TIME PROCEDURE ORDERING PROVIDER [id number] 10/23/2021 11:08 EDT MRI Abdomen w/o Contrast DONOVAN SRIVASTAVAW CPT code 31412 Reason For Exam (MRI Abdomen w/o Contrast) [...] Transcribed Date and Time: 10/23/2021 4:36 Normal [facility] Magnesiumon 10-23-2021 Magnesium [Mass/Vol] 2.1 mg/dL Normal 1.6-2.3 [facility] Comment on above: Performed By: #### C A19O, LUPUS #### The performing lab is in the report. #### NSEO #### [facility] #### HEMDF, LDH3, BMP3, MG3, PT, CEA2 #### [facility] [address] [place] [address] #### B2GPM, B2GPA, B2GPG #### [address] [phone] Magnesium [Mass/Vol] 2.1 mg/dL 1.6 - 2 .3 mg/dL [facility] Work Phone: No Panel Informationon 10-23 Test Performed by [facility], [address] [place], [place] [id number] [place] [address] LAB [facility] Work Phone: Prothrombin Timeon 2 INR 1.1 Normal 0.9-1.1 [facility] Comment on above: Result Comment: Harry [...] HEMDF, LDH3, BMP3, MG3, PT, CEA2 #### [facility] [address] [place] [address] #### B2GPM, B2GPA, B2GPG #### [address] [phone] PT Coag (PPP) [Time] 12.2 s High 9.0-12.0 [facility] Comment on above: Result Comment: . Performed By: #### C A19O, LUPUS #### The performing lab is in the report. #### NSEO #### [facility] #### HEMDF, LDH3, BMP3, MG3, PT, CEA2 #### [facility] [address] [place] [address] #### B2GPM, B2GPA, B2GPG #### [facility] [address] [place] [address] Protime-INRon 10-23-2021 INR Coag (Bld) [Relative time] 1.1 {INR} [facility] Work Phone: Comment on above: Recommended [...] Interpretation and review of laboratory results Abnormal [facility] Work Phone: PT Coag (PPP) [Time] 12.2 s High 9.0 - 12.0 s [facility] Work Phone: Comment on above: . Test Performed by [facility], [address] [place], [place] [address] [facility] Work Phone: Basic Metabolic Panelon 10-05 Calcium [Mass/Vol] 8.9 mg/dL Normal 8.4-10.4 [facility] Comment on above: Performed By: #### P T #### [facility] [address] [place] [address] Glucose [Mass/Vol] 110 mg/dL High 70-100 [facility] Comment on above: Performed By: #### P T #### [facility] [address] [place] [address] Urea nitrogen [Mass/Vol] 14 mg/dL Normal 7-17 [facility] Comment on above: Performed By: #### P T #### [facility] [address] [place] [address] Anion gap [Moles/Vol] 7 mmol/L Normal 3-13 [facility] Comment on above: Performed By: #### P T #### [facility] [address] [place] [address] CO2 [Moles/Vol] 26 mmol/L Normal 22-30 [facility] Comment on above: Performed By: #### P T #### [facility] [address] [place] [address] Creatinine [Mass/Vol] 0.71 mg/dL Normal 0.52-1.25 [facility] Comment on above: Performed By: #### P T #### [facility] [address] [place] [address] eGFR OTHER > 90.0 Normal >60 [facility] Comment on above: Result Comment: KDIG [...] secretion. Performed By: #### P T #### [facility] [address] [place] [address] GFR/1.73 sq M.predicted among blacks MDRD (S/P/Bld) [Vol rate/Area] mL/min/{1.73_m2} Normal >60 [facility] Comment on above: Performed By: #### P T #### [facility] [address] [place] [address] Potassium [Moles/Vol] 3.8 mmol/L Normal 3.5-5.1 [facility] Comment on above: Performed By: #### P T #### [facility] [address] [place] [address] Chloride [Moles/Vol] 106 mmol/L Normal 98-107 [facility] Comment on above: Performed By: #### P T #### [facility] [address] [place] [address] Sodium [Moles/Vol] 139 mmol/L Normal 135-145 [facility] Comment on above: Performed By: #### P T #### [facility] [address] [place] [address] Anion gap [Moles/Vol] 7 mmol/L 3 - 13 mmol/L [facility] Calcium [Mass/Vol] 8.9 mg/dL 8.4 - 10. 4 mg/dL [facility] Chloride [Moles/Vol] 106 mmol/L 98 - 10 7 mmol/L [facility] CO2 [Moles/Vol] 26 mmol/L 22 - 30 mmol/L [facility] Creatinine [Mass/Vol] 0.71 mg/dL 0.52 - 1.25 mg/dL [facility] EGFR IF NonAfrican Citizen Of [place] >90.0 >60 mL/min [facility] Comment on above: [...] - 10.7 10*3/uL [facility] Test Performed by [facility], [address] [place], [place] [id number] [place] [address] [address] [facility] Pel[facility] Wo Contras ton 10-22-2021 Patient Name: ANDREW SIFUENTES Computed Tomography ACCESSION EXAM DATE/TIME PROCEDURE ORDERING PROVIDER [id number] 10/22/2021 13:[address] Abdomen/Pelvis (No SRIVASTAVA, WING PO, No IV) CPT code 81984 Reason For Exam (CT Abdomen/Pelvis (No PO, [...] HARLAN Transcribed Date and Time: 10/22/2021 2:37 [facility] Humphrey Melton MD - 10/22/2021 Patient Name: [id number] Computed Tomography ACCESSION EXAM DATE/TIME PROCEDURE ORDERING PROVIDER [id number] 10/22/2021 13:[address] Abdomen/Pelvis (No SRIVASTAVA, WING PO, No IV) CPT code 43218 Reason For Exam (CT Abdomen/Pelvis (No PO, [...] HARLAN Transcribed Date and Time: 10/22/2021 2:37 [facility] Work Phone: CT Abdomen Pelvis Wo Contras tOrdered By: Humphrey Melton on 10-22-2021 [facility] Work Phone: CT Abdomen/Pelvis w/o Contra ston 10-22-2021 CT Abdomen/Pelvis w/o Contrast Patient Name: ANDREW SIFUENTES Computed Tomography ACCESSION EXAM DATE/TIME PROCEDURE ORDERING PROVIDER [id number] 10/22/2021 13:[address] Abdomen/Pelvis (No SRIVASTAVA, WING PO, No IV) CPT code 82147 Reason For Exam (CT Abdomen/Pelvis (No PO, [...] Transcribed Date and Time: 10/22/2021 2:37 Normal [facility] Hemogram w/ Autodiffon 10-22 Abs Baso Cnt 0.1 10*3/uL Normal 0.0-0.2 [facility] Comment on above: Performed By: #### P T #### [facility] [address] [place] [address] Abs Neutrophile Cnt 6.0 10*3/uL Normal 1.8-7.0 [facility] Comment on above: Performed By: #### P T #### [facility] [address] [place] [address] Basophils/100 WBC (Bld) 1.0 % Normal 0.0-2.0 [facility] Comment on above: Performed By: #### P T #### [facility] [address] [place] [address] Eosinophils (Bld) [#/Vol] 0.3 10*3/uL Normal 0.0-0.5 [facility] Comment on above: Performed By: #### P T #### [facility] [address] [place] [address] Eosinophils/100 WBC (Bld) 3.0 % Normal 1.0-6.0 [facility] Comment on above: Performed By: #### P T #### [facility] [address] [place] [address] Erythrocyte distribution width (RBC) [Ratio] 17.1 % High 11.5-14.5 [facility] Comment on above: Performed By: #### P T #### [facility] [address] [place] [address] Granulocytes/100 WBC (Bld) 64.1 % Normal 40.0-80.0 [facility] Comment on above: Performed By: #### P T #### [place] [address] [place] [address] Hematocrit (Bld) [Volume fraction] 33.4 % Low 40.0-52.0 [facility] Comment on above: Performed By: #### P T #### [facility] [address] [place] [address] Hemoglobin (Bld) [Mass/Vol] 10.9 g/dL Low 13.0-18.0 [facility] Comment on above: Performed By: #### P T #### [place] [address] [place] [address] Lymphocytes (Bld) [#/Vol] 2.5 10*3/uL Normal 1.0-4.3 [facility] Comment on above: Performed By: #### P T #### [place] [address] [place] [address] Lymphocytes/100 WBC (Bld) 26.3 % Normal 20.0-40.0 [facility] Comment on above: Performed By: #### P T #### [facility] [address] [place] [address] MCH (RBC) [Entitic mass] 28.2 pg Normal 26.0-34.0 [facility] Comment on above: Performed By: #### P T #### [facility] [address] [place] [address] MCHC 32.7 % Normal 32.0-36.0 [facility] Comment on above: Performed By: #### P T #### [place] [address] [place] [address] MCV (RBC) [Entitic vol] 86.3 fL Normal 80.0-98.0 [facility] Comment on above: Performed By: #### P T #### [facility] [address] [place] [address] Monocytes (Bld) [#/Vol] 0.5 10*3/uL Normal 0.0-0.8 [facility] Comment on above: Performed By: #### P T #### [facility] [address] [place] [address] Monocytes/100 WBC (Bld) 5.6 % Normal 2.0-10.0 [facility] Comment on above: Performed By: #### P T #### [facility] [address] [place] [address] Platelet mean volume (Bld) [Entitic vol] 7.6 fL Normal 7.4-12.4 [facility] Comment on above: Result Comment: MPV is a calculated measurement using platelet volume ratio. Performed By: #### P T #### [facility] [address] [place] [address] Platelets (Bld) [#/Vol] 369 10*3/uL Normal 140-440 [facility] Comment on above: Performed By: #### P T #### [facility] [address] [place] [place] [id number] RBC (Bld) [#/Vol] 3.87 10*6/uL Low 4.40-5.90 [facility] Comment on above: Performed By: #### P T #### [facility] [address] [place] [address] WBC (Bld) [#/Vol] 9.4 10*3/uL Normal 3.6-10.7 [facility] Comment on above: Performed By: #### P T #### [facility] [address] [place] [address] Magnesiumon 10-22-2021 Magnesium [Mass/Vol] 2.0 mg/dL Normal 1.6-2.3 [facility] Comment on above: Performed By: #### P T #### [facility] [address] [place] [address] Magnesium [Mass/Vol] 2.0 mg/dL 1.6 - 2 .3 mg/dL [facility] No Panel Informationon 10-22 Radiology Study observation (narrative) [facility] Work Phone: Test Performed by [facility], [address] [place], [place] [address] [facility] Prothrombin Timeon 2 INR 1.1 Normal 0.9-1.1 [facility] Comment on above: Result Comment: Harry [...] HEMDF, LDH3, BMP3, MG3, PT, CEA2 #### [facility] [address] [place] [address] #### B2GPM, B2GPA, B2GPG #### [address] [address] PT Coag (PPP) [Time] 11.8 s Normal 9.0-12.0 [facility] Comment on above: Result Comment: . Performed By: #### C A19O, LUPUS #### The performing lab is in the report. #### NSEO #### [facility] #### HEMDF, LDH3, BMP3, MG3, PT, CEA2 #### [facility] [address] [place] [address] #### B2GPM, B2GPA, B2GPG #### [facility] [address] [place] [address] Protime-INRon 10-22-2021 INR Coag (Bld) [Relative time] 1.1 {INR} [facility] Work Phone: Comment on above: Recommended [...] [Time] 11.8 s 9.0 - 12.0 s [facility] Work Phone: Comment on above: . Test Performed by [facility], [address] [place], [place] [id number] [place] [address] LAB [facility] Work Phone: VL Ankle Art Brachial Indice s Extremity Bilateralon 10-22-2021 [facility] Ankle Brachial Index Report Patient DO GurpreetB: 1950 Study 10/21/2021 Name: Andrew Gonzalez (71yrs) Date: Age: 71 Account: [id number] Gender: M Loc: 444W BP: Ordering Physician: Shruthi Malik Workers Compensation Claims Supervisor: Rody Cross RDMS, RVT Interpreting Physician: Carina Call Location: [facility] Indications: Foot wounds. Originally ordered as a full PVR. Ordering RECORDS SECTION SUPERVISOR had to modify the order to ABIs [...] supine position. Images were obtained using a [employer] vascular ultrasound machine. Arterial pressure indices: + [...] electronically signed by Carina Call 10/22/2021 13:21 [facility] Carina Call MD - 10/22/2021 [facility] Ankle Brachial Index Report Patient RADHA Sifuentes: 1950 Study 10/21/2021 Name: Andrew Gonzalez (71yrs) Date: Age: 71 Account: [id number] Gender: M Loc: 444W BP: Ordering Physician: Shruthi Malik Workers Compensation Claims Supervisor: Rody Cross RDMS, NEGRITOT Interpreting Physician: Carina Call Location: [facility] Indications: Foot wounds. Originally ordered as a full PVR. Ordering RECORDS SECTION SUPERVISOR had to modify the order to ABIs [...] supine position. Images were obtained using a [employer] vascular ultrasound machine. Arterial pressure indices: + [...] by Carina Call 10/22/2021 13:21 [facility] Work Phone: [facility] Work Phone: Basic Metabolic Panelon 10-05 Calcium [Mass/Vol] 9.1 mg/dL Normal 8.4-10.4 [facility] Comment on above: Performed By: #### C OVAG #### [facility] [address] [place] [address] Anion gap [Moles/Vol] 6 mmol/L Normal 3-13 [facility] Comment on above: Performed By: #### C OVAG #### [facility] [address] [place] [address] CO2 [Moles/Vol] 29 mmol/L Normal 22-30 [facility] Comment on above: Performed By: #### C OVAG #### [facility] [address] [place] [address] Creatinine [Mass/Vol] 0.90 mg/dL Normal 0.52-1.25 [facility] Comment on above: Performed By: #### C OVAG #### [facility] [address] [place] [address] GFR/1.73 sq M.predicted among blacks MDRD (S/P/Bld) [Vol rate/Area] mL/min/{1.73_m2} Normal >60 [facility] Comment on above: Performed By: #### C OVAG #### [facility] [address] [place] [address] GFR/1.73 sq M.predicted among non-blacks MDRD (S/P/Bld) [Vol rate/Area] 86.6 mL/min/{1.73_m2} Normal >60 [facility] Comment on above: Result Comment: KDIG [...] secretion. Performed By: #### C OVAG #### [facility] [address] [place] [address] Glucose [Mass/Vol] 106 mg/dL High 70-100 [facility] Comment on above: Performed By: #### C OVAG #### [facility] [address] [place] [address] Urea nitrogen [Mass/Vol] 18 mg/dL High 7-17 [facility] Comment on above: Performed By: #### C OVAG #### [facility] [address] [place] [address] Chloride [Moles/Vol] 105 mmol/L Normal 98-107 [facility] Comment on above: Performed By: #### C OVAG #### [facility] [address] [place] [address] Potassium [Moles/Vol] 4.3 mmol/L Normal 3.5-5.1 [facility] Comment on above: Performed By: #### C OVAG #### [facility] [address] [place] [address] Sodium [Moles/Vol] 139 mmol/L Normal 135-145 [facility] Comment on above: Performed By: #### C OVAG #### [facility] [address] [place] [address] Anion gap [Moles/Vol] 6 mmol/L 3 - 13 mmol/L [facility] Calcium [Mass/Vol] 9.1 mg/dL 8.4 - 10. 4 mg/dL [facility] Chloride [Moles/Vol] 105 mmol/L 98 - 10 7 mmol/L [facility] CO2 [Moles/Vol] 29 mmol/L 22 - 30 mmol/L [facility] Creatinine [Mass/Vol] 0.9 mg/dL 0.52 - 1.25 mg/dL [facility] EGFR IF NonAfrican Citizen Of [place] 86.6 mL/min >60 [facility] Comment on above: [...] - 17 mg/dL [facility] Test Performed by [facility], [address] [place] [address] LAB [facility] C-Reactive Proteinon 022 CRP [Mass/Vol] 33.5 mg/L High 0.0-9.9 [facility] Comment on above: Result Comment: . Performed By: #### P T #### [facility] [address] [place] [address] CRP [Mass/Vol] 33.5 mg/L High 0.0 - 9.9 mg/L [facility] Comment on above: . Interpretation and review of laboratory results Abnormal [facility] Test Performed by [facility], [address] [place] [address], [place] [id number] [place] [address] CR Calcaneus 2+ Views Lefton 10-21-2021 CR Calcaneus 2+ Views Left Patient [facility]: [id number] Diagnostic Radiology ACCESSION EXAM DATE/TIME PROCEDURE ORDERING PROVIDER [id number] 10/21/2021 15:30 EDT CR Calcaneus 2+ Views [id number] -SHRUTHI MALIK Left CPT code 24205 Reason For Exam (CR Calcaneus 2+ Views [...] Transcribed Date and Time: 10/21/2021 4:33 Normal [facility] CR Chest 1 View Frontalon CR Chest 1 View Frontal Patient Name: ANDREW SIFUENTES Diagnostic Radiology ACCESSION EXAM DATE/TIME PROCEDURE ORDERING PROVIDER [id number] 10/21/2021 08:16 EDT CR Chest 1 View Frontal [id number] MAY BOGGS CPT code 51417 Reason For Exam (CR Chest 1 View [...] Transcribed Date and Time: 10/21/2021 8:33 Normal [facility] D-Dimer, Innovanceon 022 D-Dimer, Innovance 1.51 mg/L High <0.19-0.50 [facility] Comment on above: Result Comment: Inno saba D-Dimer values of <0.50 mg/L FEU can be used in combination with a pre-test probability model (e.g. Well's) to exclude pulmonary embolism (PE) disease, as well as an aid in the diagnosis of deep vein thrombosis (DVT). Performed By: #### P T #### [facility] [address] [place] [address] D-Dimer, Quantitativeon 10-05 D-Dimer, Quant 1.51 mg/L High <0.19 - 0.50 [facility] Comment on above: Innovance D-Dimer va lues of <0.50 mg/L FEU can be used in combination with a pre-test probability model (e.g. Well's) to exclude pulmonary embolism (PE) disease, as well as an aid in the diagnosis of deep vein thrombosis (DVT). Interpretation and review of laboratory results Abnormal [facility] Test Performed by [facility], [address], [place], [place] [id number] [place] [address] LAB [facility] ED Provider Noteon 2 ED Provider Note [facility] EMERGENCY DEPARTMENT ENCOUNTER Pt Name: Andrew [...] (HCC) ? Kidney stone ? Neuropathy ? PROVIDER SCRIBE (ventriculoperitoneal) shunt status SURGICAL HISTORY Past Surgical [...] and Family: Not on file ? Attends [employer]: Not on file ? Active Member [...] LUNGS: Respirations (more content not included)... Normal [facility] Hemogramon 10-21-2021 Erythrocyte distribution width (RBC) [Ratio] 17.3 % High 11.5-14.5 [facility] Comment on above: Performed By: #### C OVAG #### [facility] [address] [place] [address] Hematocrit (Bld) [Volume fraction] 33.6 % Low 40.0-52.0 [facility] Comment on above: Performed By: #### C OVAG #### [facility] [address] [place] [address] Hemoglobin (Bld) [Mass/Vol] 10.9 g/dL Low 13.0-18.0 [facility] Comment on above: Performed By: #### C OVAG #### [facility] [address] [place] [address] MCH (RBC) [Entitic mass] 27.8 pg Normal 26.0-34.0 [facility] Comment on above: Performed By: #### C OVAG #### [facility] [address] [place] [address] MCHC 32.5 % Normal 32.0-36.0 [facility] Comment on above: Performed By: #### C OVAG #### [facility] [address] [place] [address] MCV (RBC) [Entitic vol] 85.6 fL Normal 80.0-98.0 [facility] Comment on above: Performed By: #### C OVAG #### [facility] [address] [place] [address] Platelet mean volume (Bld) [Entitic vol] 7.7 fL Normal 7.4-12.4 [facility] Comment on above: Result Comment: MPV is a calculated measurement using platelet volume ratio. Performed By: #### C OVAG #### [facility] [address] [place] [address] Platelets (Bld) [#/Vol] 404 10*3/uL Normal 140-440 [facility] Comment on above: Performed By: #### C OVAG #### [facility] [address] [place] [address] RBC (Bld) [#/Vol] 3.93 10*6/uL Low 4.40-5.90 [facility] Comment on above: Performed By: #### C OVAG #### [facility] [address] [place] [address] WBC (Bld) [#/Vol] 11.6 10*3/uL High 3.6-10.7 [facility] Comment on above: Performed By: #### C OVAG #### [facility] [address] [place] [address] Hemogram (CBC)on 10-21-2021 Hematocrit (Bld) [Volume fraction] 33.6 % Low 40.0 - 52.0 % [facility] Hemoglobin (Bld) [Mass/Vol] 10.9 g/dL Low 13.0 - 18.0 g/dL [facility] Interpretation and review of laboratory results Abnormal [facility] MCH (RBC) [Entitic mass] 27.8 pg 26.0 - 34.0 pg [facility] MCHC (RBC) [Mass/Vol] 32.5 % 32.0 - 36.0 % [facility] MCV (RBC) [Entitic vol] 85.6 fL 80.0 - 98.0 fL [facility] Platelet distribution width (Bld) [Ratio] 17.3 % High 11.5 - 14.5 % [facility] Platelet mean volume (Bld) [Entitic vol] 7.7 fL 7.4 - 12.4 fL [facility] Comment on above: MPV is a calculated measurement using platelet volume ratio. Platelets (Bld) [#/Vol] 404 10*3/uL 140 - 440 10*3/uL [facility] RBC (Bld) [#/Vol] 3.93 10*6/uL Low 4.40 - 5.9 0 10*6/uL [facility] WBC (Bld) [#/Vol] 11.6 10*3/uL High 3.6 - 10.7 10*3/uL [facility] Test Performed by [facility], [address] [place], [place] [id number] [place] [address] LAB [facility] NM LUNG VENT/PERFUSION (VQ)o n 10-21-2021 Patient Name: ANDREW SIFUENTES Nuclear Medicine ACCESSION EXAM DATE/TIME PROCEDURE ORDERING PROVIDER [id number] 10/21/2021 07:55 EDT NM Pulmonary Perfusion [id number] -SHAILESHMAY w/ Vent Aerosol CPT code 01904 A9567 Reason For Exam (NM Pulmonary Perfusion [...] JOHN Transcribed Date and Time: 10/21/2021 8:49 [facility] Henry Harvey MD - 10/21/2021 Patient Name: ANDREW SIFUENTES Nuclear Medicine ACCESSION EXAM DATE/TIME PROCEDURE ORDERING PROVIDER [id number] 10/21/2021 07:55 EDT NM Pulmonary Perfusion [id number] MAY BOGGS w/ Vent Aerosol CPT code 04958 A9567 Reason For Exam (NM Pulmonary Perfusion [...] (VQ)O rdered By: Henry Harvey on 10-21-2021 [facility] Work Phone: NM Pulmonary Perfusion w/ Ve nt Aerosol or Gason 10-21-2021 NM Pulmonary Perfusion w/ Vent Aerosol or Gas Patient Name: [id number] Nuclear Medicine ACCESSION EXAM DATE/TIME PROCEDURE ORDERING PROVIDER [id number] 10/21/2021 07:55 EDT NM Pulmonary Perfusion [id number] MAY BOGGS w/ Vent Aerosol CPT code 32911 A9567 Reason For Exam (NM Pulmonary Perfusion [...] Transcribed Date and Time: 10/21/2021 8:49 Normal [facility] No Panel Informationon 10-21 Radiology Study observation (narrative) [facility] Work Phone: Prothrombin Timeon INR 1.1 Normal 0.9-1.1 [facility] Comment on above: Result Comment: Harry [...] Infarction Performed By: #### C OVAG #### [facility] [address] [place] [address] PT Coag (PPP) [Time] 11.5 s Normal 9.0-12.0 [facility] Comment on above: Result Comment: . Performed By: #### C OVAG #### [facility] [address] [place] [address] Protime-INRon 10-21-2021 INR Coag (Bld) [Relative time] 1.1 {INR} [facility] Comment on above: Recommended Anticoag ulant [...] [Time] 11.5 s 9.0 - 12.0 s [facility] Comment on above: . Test Performed by [facility], [address] [place], [place] [id number] [place] [address] LAB [facility] Retic Count(%)on 10-21-2021 Retic Count(%) 1.6 Normal [facility] Comment on above: Result Comment: [place] < 5% Adults 0.5 - 1.5% Performed By: #### P T #### [facility] [address] [place] [address] Reticulocyteson 10-21-[address] Pct 1.6 [facility] Comment on above: [place] < 5% Adults 0.5 - 1.5% Test Performed by [facility], [address] LAB [facility] Sed Rateon 10-21-2021 Sed Rate 63 mm/h High 0-10 [facility] Comment on above: Performed By: #### P T #### [facility] [address] [place] [address] Sedimentation Rateon 022 Interpretation and review of laboratory results Abnormal [facility] Sed Rate 63 mm/h High 0 - 10 mm/h [facility] Test Performed by [facility], [address] LAB [facility] VL CARMELLA Upr/L Extremity Art 1 -2 Levelson 10-21-2021 VL CARMELLA Upr/L Extremity Art 1-2 Levels Patient Name: ANDREW SIFUENTES Ultrasound ACCESSION EXAM DATE/TIME PROCEDURE ORDERING PROVIDER [id number] 10/21/2021 16:12 EDT VL Upr/L Extremity Art [id number] -SHRUTHI MALIK 1-2 Levels CPT code 81693 Reason For Exam (VL Upr/L Extremity Art 1-2 Levels) both lower legs CARMELLA for both feet wounds. Report [facility] Ankle Brachial Index Report Patient RADHA Sifuentes: 1950 Study 10/21/2021 Name: Andrew Gonzalez (71yrs) Date: Age: 71 Account: [id number] Gender: M Loc: 444W BP: Ordering Physician: Shruthi Malik Workers Compensation Claims Supervisor: Rody Cross RDMS, RVT Interpreting Physician: Carina Call Location: [facility] Indications: Foot wounds. Originally ordered as a full PVR. Ordering RECORDS SECTION SUPERVISOR had to modify the order to ABIs [...] supine position. Images were obtained using a [employer] vascular ultrasound machine. Arterial pressure indices: + [...] CARINA HENNESSY Cardiovascular ACCESSION EXAM DATE/TIME PROCEDURE [id number] 10/21/2021 16:12 EDT VL Upr/L Extremity Art 1-2 Levels CPT code 30050 Reason For Exam (VL Upr/L Extremity Art 1-2 Levels) both lower legs CARMELLA for both feet wounds. Report [facility] Ankle Brachial Index Report Patient DO GurpreetB: 1950 Study 10/21/2021 Name: Andrew Gonzalez (71yrs) Date: Age: 71 Account: [id number] Cardiovascular Report Gender: M Loc: 444W BP: Ordering Physician: hSruthi Malik Workers Compensation Claims Supervisor: Rody Cross RDMS, RVT Interpreting Physician: Carina Call Location: [facility] Indications: Foot wounds. Originally ordered as a full PVR. Ordering RECORDS SECTION SUPERVISOR had to modify the order to ABIs [...] in th (more content not included)... Normal [facility] VL LOWER EXTREMITY BILATERAL VENOUS DUPLEXon 10-21-2021 [facility] Lower Extremity Venous Duplex Report Patient DO GurpreetB: 1950 Study 10/21/2021 Name: Andrew Gonzalez (71yrs) Date: Age: 71 Account: [id number] Gender: M Loc: 444 BP: Ordering Physician: May Cash Workers Compensation Claims Supervisor: Rody Cross RDMS, RVT Interpreting Physician: Carina [...] supine position. Images were obtained using a [employer] vascular ultrasound machine. Venous flow and imaging: [...] +-------- --------+ + (more content not included)... [facility] Carina Call MD - 10/21/2021 [facility] Lower Extremity Venous Duplex Report Patient Gurpreet RADHA: 1950 Study 10/21/2021 Name: Andrew R (71yrs) Date: Age: 71 Account: [id number] Gender: M Loc: 444 BP: Ordering Physician: May Cash Workers Compensation Claims Supervisor: Rody Cross RDMS, RVJamison Interpreting Physician: Carina Call [facility] supine position. Images were obtained using a [employer] vascular ultrasound machine. Venous flow and imaging: [...] + + +----- (more content not included)... [employer] Work Phone: VL LOWER EXTREMITY BILATERAL VENOUS DUPLEXOrdered By: Carina Call on 10-21-2021 [employer] Work Phone: VL Venous Duplex US Lower Ex t Bilateralon 10-21-2021 VL Venous Duplex US Lower Ext Bilateral Patient Name: ANDREW SIFUENTES Ultrasound ACCESSION EXAM DATE/TIME PROCEDURE ORDERING PROVIDER [id number] 10/21/2021 09:53 EDT VL Venous Duplex US [id number] -MAY CASH Lower Ext Bilateral CPT code 47086 Reason For Exam (VL Venous Duplex US Lower Ext Bilateral) bilateral sqwelling redness Report [facility] Lower Extremity Venous Duplex Report Patient Gurpreet : 1950 Study 10/21/2021 Name: Andrew Gonzalez (71yrs) Date: Age: 71 Account: [id number] Gender: M Loc: 444 BP: Ordering Physician: May Cash Workers Compensation Claims Supervisor: Rody Cross RDMS, RVT Interpreting Physician: Carina [...] supine position. Images were obtained using a [employer] vascular ultrasound machine. Venous flow and imaging: [...] + + (more content not included)... Normal [employer] [facility] XR CALCANEUS LEFT (MIN 2 VIE WS)on 10-21-2021 Patient Name: ANDREW SIFUENTES Diagnostic Radiology ACCESSION EXAM DATE/TIME PROCEDURE ORDERING PROVIDER [id number] 10/21/2021 15:30 EDT CR Calcaneus 2+ Views [id number] -SHRUTHI MALIK Left CPT code 47088 Reason For Exam (CR Calcaneus 2+ Views [...] Radiology ACCESSION EXAM DATE/TIME PROCEDURE ORDERING PROVIDER [id number] 10/21/2021 15:30 EDT CR Calcaneus 2+ Views [id number] -SHRUTHI MALIK Left CPT code 61962 Reason For Exam (CR Calcaneus 2+ Views [...] 1 VWon 10-21-2021 Patient [facility]: [id number] Diagnostic Radiology ACCESSION EXAM DATE/TIME PROCEDURE ORDERING PROVIDER [id number] 10/21/2021 08:16 EDT CR Chest 1 View Frontal [id number] MAY BOGGS CPT code 88859 Reason For Exam (CR Chest 1 View [...] Transcribed Date and Time: 10/21/2021 8:33 Venus Tcuker MD - 10/21/2021 Patient Name: ANDREW SIFUENTES Diagnostic Radiology ACCESSION EXAM DATE/TIME PROCEDURE ORDERING PROVIDER [id number] 10/21/2021 08:16 EDT CR Chest 1 View Frontal [id number] -MAY CASH CPT code 62797 Reason For Exam (CR Chest 1 View [...] OSAMA Transcribed Date and Time: 10/21/2021 8:33 [facility] Work Phone: XR Chest 1 VWOrdered By: Natalie Loyd on 10-21-2021 [facility] Work Phone: Basophil percentageon 2021 Chloride [Moles/Vol] 108 mmol/L 98-[address] [facility] [address] [facility] Work Phone: Glucose [Mass/Vol] 93 mg/dL 74-106 [facility] Work Phone: Potassium [Moles/Vol] 3.9 mmol/L 3.5-5.1 [facility] Work Phone: Sodium [Moles/Vol] 140 mmol/L 136-145 [facility] Work Phone: WBC (Bld) [#/Vol] 8.7 10*3/uL 4.4-11.0 [facility] Work Phone: Blood erythrocytes count (nu mber/volume)on 10-20-2021 RBC (Bld) [#/Vol] 3.63 10*6/uL 4.6-6.2 [facility] Work Phone: Blood hemoglobin measurement (mass/volume)on 10-20-2021 Hemoglobin (Bld) [Mass/Vol] 10.1 g/dL 13.0-16.5 [facility] Work Phone: Blood platelet mean volumeon 10-20-2021 Platelet mean volume (Bld) [Entitic vol] 9.8 fL 6.2-12.0 [facility] Work Phone: Determination of erythrocyte mean corpuscular volume (MCV)on 10-20-2021 MCV (RBC) [Entitic vol] 90.1 fL 80-94 [facility] Work Phone: Hematocrit Auto (Bld) [Volum e fraction]on 10-20-2021 Hematocrit (Bld) [Volume fraction] 32.7 % 40-54 [facility] Work Phone: Laboratory - Chemistry and C hemistry - challengeon 10-20-2021 CO2 [Moles/Vol] 25.0 mmol/L 21.0-32.0 [facility] Work Phone: Urea nitrogen/Creatinine [Mass ratio] 17.4 mg/mg 10-20 [facility] Work Phone: Laboratory - Hematology and Cell countson 10-20-2021 Erythrocyte distribution width (RBC) [Entitic vol] 52.1 fL 35.1-43.9 [facility] Work Phone: Erythrocyte distribution width (RBC) [Ratio] 15.6 % 11.6-14.6 [facility] Work Phone: MCH (RBC) [Entitic mass] 27.8 pg 27.0-32.0 [facility] Work Phone: MCHC Auto (RBC) [Mass/Vol]on 10-20-2021 MCHC (RBC) [Mass/Vol] 30.9 g/dL 32-36 [facility] Work Phone: No Panel Informationon 10-20 Estimated GFR (MDRD) Amer 133 mL/min >60 [facility] Work Phone: Comment on above: GFR Calc Estimated GFR (MDRD) Non-Af Amer 110 mL/min >60 [facility] Work Phone: Comment on above: Non- GFR Calc Platelets bldon 10-20-2021 Platelets (Bld) [#/Vol] 404 10*3/uL 150-450 [facility] Work Phone: Serum or plasma calcium oral urement (mass/volume)on 10-20-2021 Calcium [Mass/Vol] 9.1 mg/dL 8.5-10.1 [facility] Work Phone: Serum or plasma creatinine m easurement (mass/volume)on 10-20-2021 Creatinine [Mass/Vol] 0.75 mg/dL 0.70-1.30 [facility] Work Phone: Comment on above: The validity of the calculated GFR & GFRAA in patients over 70 years has not been determined. Clinical correlation is essential. Serum or plasma urea nitroge n measurement (mass/volume)on 10-20-2021 Urea nitrogen [Mass/Vol] 13 mg/dL 7-18 [facility] Work Phone: Thin prep Papanicolaou smear with manual screeningon 10-20-2021 Thin prep Papanicolaou smear with manual screening 7 5-15 [facility] Work Phone: CNPNon 10-17-2021 CNPN Normal [facility] Absolute lymphocyte counton 09-19-2021 Lymphocytes Auto (Unsp spec) [#/Vol] 1.74 10*3/uL 0.83-4.51 [facility] Work Phone: Basophil percentageon 2021 Basophils/100 WBC (Bld) 0.6 % 0-1 [facility] Work Phone: Bilirubin [Mass/Vol] 0.30 mg/dL 0.20-1.00 [facility] Work Phone: Comment on above: For patients on eltr ombopag therapy, use of Dimension [place] TBIL is not recommended. Chloride [Moles/Vol] 105 mmol/L 98-107 [facility] Work Phone: Eosinophils/100 WBC (Bld) 3.5 % 0-5 [facility] Work Phone: Glucose [Mass/Vol] 91 mg/dL 74-106 [facility] Work Phone: [phone] Neutrophils (Bld) [#/Vol] 4.2 10*3/uL 2.0-7.7 [facility] Work Phone: [phone] Neutrophils/100 WBC (Bld) 62.6 % 47-70 [facility] Work Phone: Potassium [Moles/Vol] 3.8 mmol/L 3.5-5.1 [facility] Work Phone: [phone] Protein [Mass/Vol] 6.3 g/dL 6.4-8.2 [facility] Work Phone: [phone] Sodium [Moles/Vol] 139 mmol/L 136-145 [facility] Work Phone: [phone] WBC (Bld) [#/Vol] 6.6 10*3/uL 4.4-11.0 [facility] Work Phone: [phone] Blood erythrocytes count (nu mber/volume)on 09-19-2021 RBC (Bld) [#/Vol] 3.47 10*6/uL 4.6-6.2 [facility] Work Phone: [phone] Blood hemoglobin measurement (mass/volume)on 09-19-2021 Hemoglobin (Bld) [Mass/Vol] 10.2 g/dL 13.0-16.5 [facility] Work Phone: Blood lymphocytes/100 leukoc yteson 09-19-2021 Lymphocytes/100 WBC (Bld) 26.2 % 19-41 [facility] Work Phone: Blood monocytes/100 leukocyt eson 09-19-2021 Monocytes/100 WBC (Bld) 6.5 % 0-10 [facility] Work Phone: Blood platelet mean volumeon 09-19-2021 Platelet mean volume (Bld) [Entitic vol] 9.6 fL 6.2-12.0 [facility] Work Phone: Determination of erythrocyte mean corpuscular volume (MCV)on 09-19-2021 MCV (RBC) [Entitic vol] 94.8 fL 80-94 [facility] Work Phone: Hematocrit Auto (Bld) [Volum e fraction]on 09-19-2021 Hematocrit (Bld) [Volume fraction] 32.9 % 40-54 [facility] Work Phone: Laboratory - Chemistry and C hemistry - challengeon 09-19-2021 ALP [Catalytic activity/Vol] 109 U/L 45-117 [facility] Work Phone: ALT [Catalytic activity/Vol] 23 U/L 16-61 [facility] Work Phone: CO2 [Moles/Vol] 26.0 mmol/L 21.0-32.0 [facility] Work Phone: Globulin (S) [Mass/Vol] 3.5 g/dL 2.2-4.2 [facility] Work Phone: Urea nitrogen/Creatinine [Mass ratio] 15.3 mg/mg 10-20 [facility] Work Phone: Laboratory - Hematology and Cell countson 09-19-2021 Erythrocyte distribution width (RBC) [Entitic vol] 59.4 fL 35.1-43.9 [facility] Work Phone: Erythrocyte distribution width (RBC) [Ratio] 17.1 % 11.6-14.6 [facility] Work Phone: Immature granulocytes/100 WBC (Bld) 0.600 % 0.0-0.9 [facility] Work Phone: Comment on above: IG% - Immature Granu locytes (promyelocytes, myelocytes and metamyelocytes) > 1% indicates that a LEFT SHIFT is Present. MCH (RBC) [Entitic mass] 29.4 pg 27.0-32.0 [facility] Work Phone: Nucleated RBC/100 WBC (Bld) [Ratio] 0 % 0-5 [facility] Work Phone: MCHC Auto (RBC) [Mass/Vol]on 09-19-2021 MCHC (RBC) [Mass/Vol] 31.0 g/dL 32-36 [facility] Work Phone: No Panel Informationon 09-19 Estimated GFR (MDRD) Amer 175 mL/min >60 [facility] Work Phone: Comment on above: GFR Calc Estimated GFR (MDRD) Non-Af Amer 145 mL/min >60 [facility] Work Phone: Comment on above: Non- GFR Calc Platelets bldon 09-19-2021 Platelets (Bld) [#/Vol] 342 10*3/uL 150-450 [facility] Work Phone: Serum or plasma albumin oral urement (mass/volume)on 09-19-2021 Albumin [Mass/Vol] 2.8 g/dL 3.2-5.0 [facility] Work Phone: Serum or plasma albumin/glob ulin mass ratioon 09-19-2021 Albumin/Globulin [Mass ratio] 0.8 {ratio} 0.9-2.4 [facility] Work Phone: Serum or plasma calcium oral urement (mass/volume)on 09-19-2021 Calcium [Mass/Vol] 9.0 mg/dL 8.5-10.1 [facility] Work Phone: Serum or plasma creatinine m easurement (mass/volume)on 09-19-2021 Creatinine [Mass/Vol] 0.59 mg/dL 0.70-1.30 [facility] Work Phone: Comment on above: The validity of the calculated GFR & GFRAA in patients over 70 years has not been determined. Clinical correlation is essential. Serum or plasma urea nitroge n measurement (mass/volume)on 09-19-2021 Urea nitrogen [Mass/Vol] 9 mg/dL 7-18 [facility] Work Phone: Thin prep Papanicolaou smear with manual screeningon 09-19-2021 Thin prep Papanicolaou smear with manual screening 12 U/L 15-37 [facility] Work Phone: Thin prep Papanicolaou smear with manual screening 8 5-15 [facility] Work Phone: OPERATIVE NOon 08-22-2021 OPERATIVE NO Normal [facility] Basic metabolic 2000 panelon 08-19-2021 Anion gap [Moles/Vol] 10 mmol/L Normal 9-18 [facility] Comment on above: Order Comment: Speci men Type: BLOOD SPECIMENOrdering Facility: [facility] Address: [address] [address] Performed By: #### 2 4321-2 ####[facility] LABORATORYCLIA [id number] [place] [address] [place] Calcium [Mass/Vol] 8.6 mg/dL Normal 8.5-10.2 [facility] Comment on above: Order Comment: Speci men Type: BLOOD SPECIMENOrdering Facility: [facility] Address: [address] [address] Performed By: #### 2 4321-2 ####[facility] LABORATORYCLIA [id number] [place] [address] [place] Chloride [Moles/Vol] 99 mmol/L Normal 97-105 [facility] Comment on above: Order Comment: Speci men Type: BLOOD SPECIMENOrdering Facility: [facility] Address: [address] Performed By: #### 2 4321-2 ####[facility] LABORATORYCLIA [id number] [address] [place] CO2 [Moles/Vol] 29 mmol/L Normal 22-30 [facility] Comment on above: Order Comment: Speci men Type: BLOOD SPECIMENOrdering Facility: [facility] Address: [address] [place] [address] Performed By: #### 2 4321-2 ####[facility] LABORATORYCLIA [id number] [address] [place] Creatinine [Mass/Vol] 0.58 mg/dL Low 0.73-1.22 [facility] Comment on above: Order Comment: Speci men Type: BLOOD SPECIMENOrdering Facility: [facility] Address: [address] [place] [address] Performed By: #### 2 4321-2 ####[facility] CARMELCLIA [id number] [address] ESTIMATED GLOMERULAR FILTRATION RATE 106 mL/min/1.73m??? Normal >=60 [facility] Comment on above: Order Comment: Speci men Type: BLOOD SPECIMENOrdering Facility: [facility] Address: [address] [place] [address] Result Comment: Luzmaria mated Glomerular Filtration Rate [...] actual GFR. Performed By: #### 2 4321-2 ####[facility] LABORATORYCLIA [id number] [address] Glucose [Mass/Vol] 101 mg/dL High 74-99 [facility] Comment on above: Order Comment: Speci men Type: BLOOD SPECIMENOrdering Facility: [facility] Address: [address] [address] Result Comment: The [place] Diabetes Association (ADA) provides guidance for cutoff [...] Standards of Medical Care in Diabetes 2016, [place] Diabetes Association. Diabetes Care. 2016.39(Suppl 1). Performed By: #### 2 4321-2 ####[facility] LABORATORYCLIA [id number] [place] [address] [place] Potassium [Moles/Vol] 3.5 mmol/L Low 3.7-5.1 [facility] Comment on above: Order Comment: Speci men Type: BLOOD SPECIMENOrdering Facility: [facility] Address: [address] [address] Performed By: #### 2 1-2 ####[facility] LABORATORYCLIA [id number] [place] [address] [place] Sodium [Moles/Vol] 138 mmol/L Normal 136-144 [facility] Comment on above: Order Comment: Speci men Type: BLOOD SPECIMENOrdering Facility: [facility] Address: [address] [address] Performed By: #### 2 1-2 ####[facility] LABORATORYCLIA [id number] [place] [address] [place] Urea nitrogen [Mass/Vol] 11 mg/dL Normal 9-24 [facility] Comment on above: Order Comment: Speci men Type: BLOOD SPECIMENOrdering Facility: [facility] Address: [address] [address] Performed By: #### 2 4321-2 ####[facility] LABORATORYCLIA [id number] [address] [place] CASE MANAGEMon 08-19-2021 CASE MANAGEM Normal [facility] CBC W Auto Differential pane l (Bld)on 08-19-2021 Basophils (Bld) [#/Vol] 0.03 10*3/uL Normal <0.11 [facility] Comment on above: Order Comment: Speci men Type: BLOOD SPECIMENOrdering Facility: [facility] Address: [address] [place] [address] Performed By: #### 5 7021-8 ####[facility] LABORATORYCLIA [id number] [address] [place] Basophils/100 WBC (Bld) 0.4 % Normal [facility] Comment on above: Order Comment: Speci men Type: BLOOD SPECIMENOrdering Facility: [facility] Address: [address] [place] [address] Performed By: #### 5 7021-8 ####[facility] LABORATORYCLIA [id number] [address] OF [facility] Differential cell count method Nom (Bld) Auto Normal [facility] Comment on above: Order Comment: Speci men Type: BLOOD SPECIMENOrdering Facility: [facility] Address: [address] [place] [address] Performed By: #### 5 7021-8 ####[facility] LABORATORYCLIA [id number] [place] [address] [place] Eosinophils (Bld) [#/Vol] 0.24 10*3/uL Normal <0.46 [facility] Comment on above: Order Comment: Speci men Type: BLOOD SPECIMENOrdering Facility: [facility] Address: [address] [place] [address] Performed By: #### 5 7021-8 ####[facility] LABORATORYCLIA [id number] [address] [place] Eosinophils/100 WBC (Bld) 3.1 % Normal [facility] Comment on above: Order Comment: Speci men Type: BLOOD SPECIMENOrdering Facility: [facility] Address: [address] [place] [address] Performed By: #### 5 7021-8 ####[facility] LABORATORYCLIA [id number] [address] Erythrocyte distribution width (RBC) [Ratio] 17.5 % High 11.5-15.0 [facility] Comment on above: Order Comment: Speci men Type: BLOOD SPECIMENOrdering Facility: [facility] Address: [address] [place] [address] Performed By: #### 5 7021-8 ####[facility] LABORATORYCLIA [id number] [address] Hematocrit (Bld) [Volume fraction] 30.2 % Low 39.0-51.0 [facility] Comment on above: Order Comment: Speci men Type: BLOOD SPECIMENOrdering Facility: [facility] Address: [address] [place] [address] Performed By: #### 5 7021-8 ####[facility] LABORATORYCLIA [id number] [address] Hemoglobin (Bld) [Mass/Vol] 9.6 g/dL Low 13.0-17.0 [facility] Comment on above: Order Comment: Speci men Type: BLOOD SPECIMENOrdering Facility: [facility] Address: [address] [place] [address] Performed By: #### 5 7021-8 ####[facility] LABORATORYCLIA [id number] [address] IMMATURE GRAN % 0.4 % Normal [facility] Comment on above: Order Comment: Speci men Type: BLOOD SPECIMENOrdering Facility: [facility] Address: [address] [place] [address] Performed By: #### 5 7021-8 ####[facility] LABORATORYCLIA [id number] [address] IMMATURE GRAN ABS 0.03 k/uL Normal <0.10 [facility] Comment on above: Order Comment: Speci men Type: BLOOD SPECIMENOrdering Facility: [facility] Address: [address] [place] [address] Performed By: #### 5 7021-8 ####[facility] LABORATORYCLIA [id number] [address] [facility] Lymphocytes (Bld) [#/Vol] 1.71 10*3/uL Normal 1.00-4.00 [facility] Comment on above: Order Comment: Speci men Type: BLOOD SPECIMENOrdering Facility: [facility] Address: [address] [place] [address] Performed By: #### 5 7021-8 ####[facility] LABORATORYCLIA [id number] [address] Lymphocytes/100 WBC (Bld) 22.2 % Normal [facility] Comment on above: Order Comment: Speci men Type: BLOOD SPECIMENOrdering Facility: [facility] Address: [address] [place] [address] Performed By: #### 5 7021-8 ####[facility] LABORATORYCLIA [id number] [address] [place] [facility] MCH (RBC) [Entitic mass] 29.4 pg Normal 26.0-34.0 [facility] Comment on above: Order Comment: Speci men Type: BLOOD SPECIMENOrdering Facility: [facility] Address: [address] [place] [address] Performed By: #### 5 7021-8 ####[facility] LABORATORYCLIA [id number] [address] [place] [facility] MCHC (RBC) [Mass/Vol] 31.8 g/dL Normal 30.5-36.0 [facility] Comment on above: Order Comment: Speci men Type: BLOOD SPECIMENOrdering Facility: [facility] Address: [address] [place] [address] Performed By: #### 5 7021-8 ####[facility] LABORATORYCLIA [id number] [place] [address] [place] MCV (RBC) [Entitic vol] 92.6 fL Normal 80.0-100.0 [facility] Comment on above: Order Comment: Speci men Type: BLOOD SPECIMENOrdering Facility: [facility] Address: [address] [place] [address] Performed By: #### 5 7021-8 ####[facility] LABORATORYCLIA [id number] [place] [address] [place] Monocytes (Bld) [#/Vol] 0.50 10*3/uL Normal <0.87 [facility] Comment on above: Order Comment: Speci men Type: BLOOD SPECIMENOrdering Facility: [facility] Address: [address] [place] [address] Performed By: #### 5 7021-8 ####[facility] LABORATORYCLIA [id number] [address] [place] Monocytes/100 WBC (Bld) 6.5 % Normal [facility] Comment on above: Order Comment: Speci men Type: BLOOD SPECIMENOrdering Facility: [facility] Address: [address] [place] [address] Performed By: #### 5 7021-8 ####[facility] LABORATORYCLIA [id number] [place] [address] [place] Neutrophils (Bld) [#/Vol] 5.20 10*3/uL Normal 1.45-7.50 [facility] Comment on above: Order Comment: Speci men Type: BLOOD SPECIMENOrdering Facility: [facility] Address: [address] [place] [address] Performed By: #### 5 7021-8 ####[facility] LABORATORYCLIA [id number] [address] [place] Neutrophils/100 WBC (Bld) 67.4 % Normal [facility] Comment on above: Order Comment: Speci men Type: BLOOD SPECIMENOrdering Facility: [facility] Address: [address] Performed By: #### 5 7021-8 ####[facility] LABORATORYCLIA [id number] [address] [place] Nucleated RBC (Bld) [#/Vol] 10*3/uL Normal <0.01 [facility] Comment on above: Order Comment: Speci men Type: BLOOD SPECIMENOrdering Facility: [facility] Address: [address] [place] [address] Performed By: #### 5 7021-8 ####[facility] LABORATORYCLIA [id number] [address] [facility] Nucleated RBC/100 WBC (Bld) [Ratio] 0.0 /100 WBC Normal [facility] Comment on above: Order Comment: Speci men Type: BLOOD SPECIMENOrdering Facility: [facility] Address: [address] [place] [address] Performed By: #### 5 7021-8 ####[facility] LABORATORYCLIA [id number] [address] [place] Platelet mean volume (Bld) [Entitic vol] 8.9 fL Low 9.0-12.7 [facility] Comment on above: Order Comment: Speci men Type: BLOOD SPECIMENOrdering Facility: [facility] Address: [address] [place] [address] Performed By: #### 5 7021-8 ####[facility] LABORATORYCLIA [id number] [address] [place] Platelets (Bld) [#/Vol] 408 10*3/uL High 150-400 [facility] Comment on above: Order Comment: Speci men Type: BLOOD SPECIMENOrdering Facility: [facility] Address: [address] [place] [address] Performed By: #### 5 7021-8 ####[facility] LABORATORYCLIA [id number] [address] [place] RBC (Bld) [#/Vol] 3.26 10*6/uL Low 4.20-6.00 [facility] Comment on above: Order Comment: Speci men Type: BLOOD SPECIMENOrdering Facility: [facility] Address: [address] [place] [address] Performed By: #### 5 7021-8 ####[facility] LABORATORYCLIA [id number] [place] [address] [place] WBC (Bld) [#/Vol] 7.71 10*3/uL Normal 3.70-11.00 [facility] Comment on above: Order Comment: Speci men Type: BLOOD SPECIMENOrdering Facility: [facility] Address: [address] [place] [address] Performed By: #### 5 7021-8 ####[facility] LABORATORYCLIA [id number] [address] [place] CNDSon 08-19-2021 CNDS Normal [facility] CONSULT PROGon 08-19-2021 CONSULT PROG Normal [facility] THERAPY NTon 08-19-2021 THERAPY NT Normal [facility] Basic metabolic 2000 panelon 08-18-2021 Anion gap [Moles/Vol] 11 mmol/L Normal 9-18 [facility] Comment on above: Order Comment: Speci men Type: BLOOD SPECIMENOrdering Facility: [facility] Address: [address] [place] [address] Performed By: #### 2 4321-2 ####[facility] LABORATORYCLIA [id number] [place] [address] [place] Calcium [Mass/Vol] 8.6 mg/dL Normal 8.5-10.2 [facility] Comment on above: Order Comment: Speci men Type: BLOOD SPECIMENOrdering Facility: [facility] Address: [address] [place] [address] Performed By: #### 2 4321-2 ####[facility] LABORATORYCLIA [id number] [place] [address] [place] Chloride [Moles/Vol] 98 mmol/L Normal 97-105 [facility] Comment on above: Order Comment: Speci men Type: BLOOD SPECIMENOrdering Facility: [facility] Address: [address] [place] [address] Performed By: #### 2 4321-2 ####[facility] LABORATORYCLIA [id number] [place] [address] [place] CO2 [Moles/Vol] 28 mmol/L Normal 22-30 [facility] Comment on above: Order Comment: Speci men Type: BLOOD SPECIMENOrdering Facility: [facility] Address: [address] [place] [address] Performed By: #### 2 4321-2 ####[facility] CARMELCLIA [id number] [address] [place] Creatinine [Mass/Vol] 0.56 mg/dL Low 0.73-1.22 [facility] Comment on above: Order Comment: Speci men Type: BLOOD SPECIMENOrdering Facility: [facility] Address: [address] [place] [address] Performed By: #### 2 4321-2 ####[facility] LABORATORYCLIA [id number] [address] ESTIMATED GLOMERULAR FILTRATION RATE 107 mL/min/1.73m??? Normal >=60 [facility] Comment on above: Order Comment: Speci men Type: BLOOD SPECIMENOrdering Facility: [facility] Address: [address] [place] [address] Result Comment: Luzmaria mated Glomerular Filtration Rate [...] actual GFR. Performed By: #### 2 4321-2 ####[facility] LABORATORYCLIA [id number] [place] [address] [place] Glucose [Mass/Vol] 113 mg/dL High 74-99 [facility] Comment on above: Order Comment: Speci men Type: BLOOD SPECIMENOrdering Facility: [facility] Address: [address] [place] [address] Result Comment: The [place] Diabetes Association (ADA) provides guidance for cutoff [...] Standards of Medical Care in Diabetes 2016, [place] Diabetes Association. Diabetes Care. 2016.39(Suppl 1). Performed By: #### 2 4321-2 ####[facility] LABORATORYCLIA [id number] [place] [address] [place] Potassium [Moles/Vol] 3.5 mmol/L Low 3.7-5.1 [facility] Comment on above: Order Comment: Shira men Type: BLOOD SPECIMENOrdering Facility: [facility] Address: [address] [place] [address] Performed By: #### 2 4321-2 ####[facility] LABORATORYCLIA [id number] [place] [address] [place] Sodium [Moles/Vol] 137 mmol/L Normal 136-144 [facility] Comment on above: Order Comment: Speci men Type: BLOOD SPECIMENOrdering Facility: [facility] Address: [address] [place] [address] Performed By: #### 2 4321-2 ####[facility] LABORATORYCLIA [id number] [place] [address] [place] Urea nitrogen [Mass/Vol] 10 mg/dL Normal 9-24 [facility] Comment on above: Order Comment: Speci men Type: BLOOD SPECIMENOrdering Facility: [facility] Address: [address] [place] [address] Performed By: #### 2 4321-2 ####[facility] LABORATORYCLIA [id number] [place] [address] [place] [facility] CBC W Auto Differential pane l (Bld)on 08-18-2021 Basophils (Bld) [#/Vol] 10*3/uL Normal <0.11 [facility] Comment on above: Order Comment: Speci men Type: BLOOD SPECIMENOrdering Facility: [facility] Address: [address] [place] [address] Performed By: #### 5 7021-8 ####[facility] LABORATORYCLIA [id number] [address] STATES [facility] Basophils/100 WBC (Bld) 0.3 % Normal [facility] Comment on above: Order Comment: Speci men Type: BLOOD SPECIMENOrdering Facility: [facility] Address: [address] [place] [address] Performed By: #### 5 7021-8 ####[facility] LABORATORYCLIA [id number] [address] Differential cell count method Nom (Bld) Auto Normal [facility] Comment on above: Order Comment: Speci men Type: BLOOD SPECIMENOrdering Facility: [facility] Address: [address] [place] [address] Performed By: #### 5 7021-8 ####[facility] LABORATORYCLIA [id number] [address] [place] Eosinophils (Bld) [#/Vol] 0.37 10*3/uL Normal <0.46 [facility] Comment on above: Order Comment: Speci men Type: BLOOD SPECIMENOrdering Facility: [facility] Address: [address] [place] [address] Performed By: #### 5 7021-8 ####[facility] LABORATORYCLIA [id number] [address] Eosinophils/100 WBC (Bld) 4.8 % Normal [facility] Comment on above: Order Comment: Speci men Type: BLOOD SPECIMENOrdering Facility: [facility] Address: [address] [place] [address] Performed By: #### 5 7021-8 ####[facility] LABORATORYCLIA [id number] [address] Erythrocyte distribution width (RBC) [Ratio] 17.5 % High 11.5-15.0 [facility] Comment on above: Order Comment: Speci men Type: BLOOD SPECIMENOrdering Facility: [facility] Address: [address] [place] [address] Performed By: #### 5 7021-8 ####[facility] LABORATORYCLIA [id number] [address] Hematocrit (Bld) [Volume fraction] 30.2 % Low 39.0-51.0 [facility] Comment on above: Order Comment: Speci men Type: BLOOD SPECIMENOrdering Facility: [facility] Address: [address] [place] [address] Performed By: #### 5 7021-8 ####[facility] LABORATORYCLIA [id number] [address] Hemoglobin (Bld) [Mass/Vol] 9.5 g/dL Low 13.0-17.0 [facility] Comment on above: Order Comment: Speci men Type: BLOOD SPECIMENOrdering Facility: [facility] Address: [address] [place] [address] Performed By: #### 5 7021-8 ####[facility] LABORATORYCLIA [id number] [address] IMMATURE GRAN % 0.4 % Normal [facility] Comment on above: Order Comment: Speci men Type: BLOOD SPECIMENOrdering Facility: [facility] Address: [address] [place] [address] Performed By: #### 5 7021-8 ####[facility] LABORATORYCLIA [id number] [address] IMMATURE GRAN ABS 0.03 k/uL Normal <0.10 [facility] Comment on above: Order Comment: Speci men Type: BLOOD SPECIMENOrdering Facility: [facility] Address: [address] [place] [address] Performed By: #### 5 7021-8 ####[facility] LABORATORYCLIA [id number] [address] [facility] Lymphocytes (Bld) [#/Vol] 1.85 10*3/uL Normal 1.00-4.00 [facility] Comment on above: Order Comment: Speci men Type: BLOOD SPECIMENOrdering Facility: [facility] Address: [address] [place] [address] Performed By: #### 5 7021-8 ####[facility] LABORATORYCLIA [id number] [address] Lymphocytes/100 WBC (Bld) 23.8 % Normal [facility] Comment on above: Order Comment: Speci men Type: BLOOD SPECIMENOrdering Facility: [facility] Address: [address] [place] [address] Performed By: #### 5 7021-8 ####[facility] LABORATORYCLIA [id number] [address] MCH (RBC) [Entitic mass] 29.5 pg Normal 26.0-34.0 [facility] Comment on above: Order Comment: Speci men Type: BLOOD SPECIMENOrdering Facility: [facility] Address: [address] [place] [address] Performed By: #### 5 7021-8 ####[facility] LABORATORYCLIA [id number] [address] MCHC (RBC) [Mass/Vol] 31.5 g/dL Normal 30.5-36.0 [facility] Comment on above: Order Comment: Speci men Type: BLOOD SPECIMENOrdering Facility: [facility] Address: [address] [place] [address] Performed By: #### 5 7021-8 ####[facility]ORATORYCLIA [id number] [address] [place] MCV (RBC) [Entitic vol] 93.8 fL Normal 80.0-100.0 [facility] Comment on above: Order Comment: Speci men Type: BLOOD SPECIMENOrdering Facility: [facility] Address: [address] [place] [address] Performed By: #### 5 7021-8 ####[facility] LABORATORYCLIA [id number] [address] [place] Monocytes (Bld) [#/Vol] 0.49 10*3/uL Normal <0.87 [facility] Comment on above: Order Comment: Speci men Type: BLOOD SPECIMENOrdering Facility: [facility] Address: [address] [place] [address] Performed By: #### 5 7021-8 ####[facility] LABORATORYCLIA [id number] [address] Monocytes/100 WBC (Bld) 6.3 % Normal [facility] Comment on above: Order Comment: Speci men Type: BLOOD SPECIMENOrdering Facility: [facility] Address: [address] [place] [address] Performed By: #### 5 7021-8 ####[facility] LABORATORYCLIA [id number] [address] [place] Neutrophils (Bld) [#/Vol] 5.00 10*3/uL Normal 1.45-7.50 [facility] Comment on above: Order Comment: Speci men Type: BLOOD SPECIMENOrdering Facility: [facility] Address: [address] [place] [address] Performed By: #### 5 7021-8 ####[facility] LABORATORYCLIA [id number] [address] [place] Neutrophils/100 WBC (Bld) 64.4 % Normal [facility] Comment on above: Order Comment: Speci men Type: BLOOD SPECIMENOrdering Facility: [facility] Address: [address] Performed By: #### 5 7021-8 ####[facility] LABORATORYCLIA [id number] [address] Nucleated RBC (Bld) [#/Vol] 10*3/uL Normal <0.01 [facility] Comment on above: Order Comment: Speci men Type: BLOOD SPECIMENOrdering Facility: [facility] Address: [address] [place], [place] [address] Performed By: #### 5 7021-8 ####[facility] LABORATORYCLIA [id number] [address] [place] Nucleated RBC/100 WBC (Bld) [Ratio] 0.0 /100 WBC Normal [facility] Comment on above: Order Comment: Speci men Type: BLOOD SPECIMENOrdering Facility: [facility] Address: [address] [place], [place] [address] Performed By: #### 5 7021-8 ####[facility] LABORATORYCLIA [id number] [address] [place] Platelet mean volume (Bld) [Entitic vol] 9.1 fL Normal 9.0-12.7 [facility] Comment on above: Order Comment: Speci men Type: BLOOD SPECIMENOrdering Facility: [facility] Address: [address] Performed By: #### 5 7021-8 ####[facility] LABORATORYCLIA [id number] [address] [place] Platelets (Bld) [#/Vol] 391 10*3/uL Normal 150-400 [facility] Comment on above: Order Comment: Speci men Type: BLOOD SPECIMENOrdering Facility: [facility] Address: [address] [place], [place] [address] Performed By: #### 5 7021-8 ####[facility] LABORATORYCLIA [id number] [address] [place] RBC (Bld) [#/Vol] 3.22 10*6/uL Low 4.20-6.00 [facility] Comment on above: Order Comment: Speci men Type: BLOOD SPECIMENOrdering Facility: [facility] Address: [address] [place] [address] Performed By: #### 5 7021-8 ####[facility] LABORATORYCLIA [id number] [address] [facility] WBC (Bld) [#/Vol] 7.76 10*3/uL Normal 3.70-11.00 [facility] Comment on above: Order Comment: Speci men Type: BLOOD SPECIMENOrdering Facility: [facility] Address: [address] [place] [address] Performed By: #### 5 7021-8 ####[facility] LABORATORYCLIA [id number] [address] [facility] CONSULT PROGon 08-18-2021 CONSULT PROG Normal [facility] CASE MANAGEMon 08-17-2021 CASE MANAGEM Normal [facility] CBC W Auto Differential pane l (Bld)on 08-17-2021 Basophils (Bld) [#/Vol] 0.04 10*3/uL Normal <0.11 [facility] Comment on above: Order Comment: Speci men Type: BLOOD SPECIMENOrdering Facility: [facility] Address: [address] [place] [address] Performed By: #### 5 7021-8 ####[facility] LABORATORYCLIA [id number] [address] STATES [facility] Basophils/100 WBC (Bld) 0.5 % Normal [facility] Comment on above: Order Comment: Speci men Type: BLOOD SPECIMENOrdering Facility: [facility] Address: [address] [place] [address] Performed By: #### 5 7021-8 ####[facility] LABORATORYCLIA [id number] [address] Differential cell count method Nom (Bld) Auto Normal [facility] Comment on above: Order Comment: Speci men Type: BLOOD SPECIMENOrdering Facility: [facility] Address: [address] [place] [address] Performed By: #### 5 7021-8 ####[facility] LABORATORYCLIA [id number] [address] [facility] Eosinophils (Bld) [#/Vol] 0.31 10*3/uL Normal <0.46 [facility] Comment on above: Order Comment: Speci men Type: BLOOD SPECIMENOrdering Facility: [facility] Address: [address] [place] [address] Performed By: #### 5 7021-8 ####[facility] LABORATORYCLIA [id number] [address] Eosinophils/100 WBC (Bld) 3.7 % Normal [facility] Comment on above: Order Comment: Speci men Type: BLOOD SPECIMENOrdering Facility: [facility] Address: [address] [place] [address] Performed By: #### 5 7021-8 ####[facility] LABORATORYCLIA [id number] [address] Erythrocyte distribution width (RBC) [Ratio] 17.4 % High 11.5-15.0 [facility] Comment on above: Order Comment: Speci men Type: BLOOD SPECIMENOrdering Facility: [facility] Address: [address] [place] [address] Performed By: #### 5 7021-8 ####[facility] LABORATORYCLIA [id number] [address] Hematocrit (Bld) [Volume fraction] 30.6 % Low 39.0-51.0 [facility] Comment on above: Order Comment: Speci men Type: BLOOD SPECIMENOrdering Facility: [facility] Address: [address] [place] [address] Performed By: #### 5 7021-8 ####[facility] LABORATORYCLIA [id number] [address] [place] Hemoglobin (Bld) [Mass/Vol] 9.6 g/dL Low 13.0-17.0 [facility] Comment on above: Order Comment: Speci men Type: BLOOD SPECIMENOrdering Facility: [facility] Address: [address] [place] [address] Performed By: #### 5 7021-8 ####[facility] LABORATORYCLIA [id number] [address] [facility] IMMATURE GRAN % 0.2 % Normal [facility] Comment on above: Order Comment: Speci men Type: BLOOD SPECIMENOrdering Facility: [facility] Address: [address] [place] [address] Performed By: #### 5 7021-8 ####[facility] LABORATORYCLIA [id number] [address] IMMATURE GRAN ABS <0.03 Normal <0.10 [facility] Comment on above: Order Comment: Speci men Type: BLOOD SPECIMENOrdering Facility: [facility] Address: [address] [place] [address] Performed By: #### 5 7021-8 ####[facility] LABORATORYCLIA [id number] [address] [place] Lymphocytes (Bld) [#/Vol] 1.66 10*3/uL Normal 1.00-4.00 [facility] Comment on above: Order Comment: Speci men Type: BLOOD SPECIMENOrdering Facility: [facility] Address: [address] [place] [address] Performed By: #### 5 7021-8 ####[facility] LABORATORYCLIA [id number] [address] Lymphocytes/100 WBC (Bld) 19.9 % Normal [facility] Comment on above: Order Comment: Speci men Type: BLOOD SPECIMENOrdering Facility: [facility] Address: [address] [place], [place] [address] Performed By: #### 5 7021-8 ####[facility] LABORATORYCLIA [id number] [address] MCH (RBC) [Entitic mass] 28.9 pg Normal 26.0-34.0 [facility] Comment on above: Order Comment: Speci men Type: BLOOD SPECIMENOrdering Facility: [facility] Address: [address] [place] [address] Performed By: #### 5 7021-8 ####[facility] LABORATORYCLIA [id number] [address] MCHC (RBC) [Mass/Vol] 31.4 g/dL Normal 30.5-36.0 [facility] Comment on above: Order Comment: Speci men Type: BLOOD SPECIMENOrdering Facility: [facility] Address: [address] [place] [address] Performed By: #### 5 7021-8 ####[facility] LABORATORYCLIA [id number] [address] MCV (RBC) [Entitic vol] 92.2 fL Normal 80.0-100.0 [facility] Comment on above: Order Comment: Speci men Type: BLOOD SPECIMENOrdering Facility: [facility] Address: [address] [place] [address] Performed By: #### 5 7021-8 ####[facility] LABORATORYCLIA [id number] [address] Monocytes (Bld) [#/Vol] 0.52 10*3/uL Normal <0.87 [facility] Comment on above: Order Comment: Speci men Type: BLOOD SPECIMENOrdering Facility: [facility] Address: [address] [place] [address] Performed By: #### 5 7021-8 ####[facility] LABORATORYCLIA [id number] [address] Monocytes/100 WBC (Bld) 6.2 % Normal [facility] Comment on above: Order Comment: Speci men Type: BLOOD SPECIMENOrdering Facility: [facility] Address: [address] [place] [address] Performed By: #### 5 7021-8 ####[facility]ORATORYCLIA [id number] [address] [place] Neutrophils (Bld) [#/Vol] 5.78 10*3/uL Normal 1.45-7.50 [facility] Comment on above: Order Comment: Speci men Type: BLOOD SPECIMENOrdering Facility: [facility] Address: [address] [place] [address] Performed By: #### 5 7021-8 ####[facility]ORATORYCLIA [id number] [address] [place] Neutrophils/100 WBC (Bld) 69.5 % Normal [facility] Comment on above: Order Comment: Speci men Type: BLOOD SPECIMENOrdering Facility: [facility] Address: [address] [place] [address] Performed By: #### 5 7021-8 ####[facility] LABORATORYCLIA [id number] [place] [address] [place] Nucleated RBC (Bld) [#/Vol] 10*3/uL Normal <0.01 [facility] Comment on above: Order Comment: Speci men Type: BLOOD SPECIMENOrdering Facility: [facility] Address: [address] [place] [address] Performed By: #### 5 7021-8 ####[facility]ORATORYCLIA [id number] [address] [place] Nucleated RBC/100 WBC (Bld) [Ratio] 0.0 /100 WBC Normal [facility] Comment on above: Order Comment: Speci men Type: BLOOD SPECIMENOrdering Facility: [facility] Address: [address] [place] [address] Performed By: #### 5 7021-8 ####[facility]ORATORYCLIA [id number] [address] [place] Platelet mean volume (Bld) [Entitic vol] 9.2 fL Normal 9.0-12.7 [facility] Comment on above: Order Comment: Speci men Type: BLOOD SPECIMENOrdering Facility: [facility] Address: [address] [place] [address] Performed By: #### 5 7021-8 ####[facility] LABORATORYCLIA [id number] [place] [address] [place] Platelets (Bld) [#/Vol] 379 10*3/uL Normal 150-400 [facility] Comment on above: Order Comment: Speci men Type: BLOOD SPECIMENOrdering Facility: [facility] Address: [address] [place] [address] Performed By: #### 5 7021-8 ####[facility] LABORATORYCLIA [id number] [place] [address] [place] RBC (Bld) [#/Vol] 3.32 10*6/uL Low 4.20-6.00 [facility] Comment on above: Order Comment: Speci men Type: BLOOD SPECIMENOrdering Facility: [facility] Address: [address] [place] [address] Performed By: #### 5 7021-8 ####[facility] LABORATORYCLIA [id number] [place] [address] [place] WBC (Bld) [#/Vol] 8.33 10*3/uL Normal 3.70-11.00 [facility] Comment on above: Order Comment: Speci men Type: BLOOD SPECIMENOrdering Facility: [facility] Address: [address] [place] [address] Performed By: #### 5 7021-8 ####[facility] LABORATORYCLIA [id number] [address] [place] CONSULT PROGon 08-17-2021 CONSULT PROG Normal [facility] NUTRITIONon 08-17-2021 NUTRITION Normal [facility] Basic metabolic 2000 panelon 08-16-2021 Anion gap [Moles/Vol] 14 mmol/L Normal 9-18 [facility] Comment on above: Order Comment: Speci men Type: BLOOD SPECIMENOrdering Facility: [facility] Address: [address] [address] Performed By: #### 2 4321-2, ####[facility] LABORATORYCLIA [id number] [place] [address] [place] Calcium [Mass/Vol] 8.8 mg/dL Normal 8.5-10.2 [facility] Comment on above: Order Comment: Speci men Type: BLOOD SPECIMENOrdering Facility: [facility] Address: [address] [place] [address] Performed By: #### 2 4321-2, ####[facility] LABORATORYCLIA [id number] [place] [address] [place] Chloride [Moles/Vol] 97 mmol/L Normal 97-105 [facility] Comment on above: Order Comment: Speci men Type: BLOOD SPECIMENOrdering Facility: [facility] Address: [address] [place] [address] Performed By: #### 2 1-2, ####[facility]ORATORYCLIA [id number] [place] [address] [place] CO2 [Moles/Vol] 27 mmol/L Normal 22-30 [facility] Comment on above: Order Comment: Speci men Type: BLOOD SPECIMENOrdering Facility: [facility] Address: [address] [address] Performed By: #### 2 4321-2, ####[facility]ORATORYCLIA [id number] [place] [address] [place] Creatinine [Mass/Vol] 0.50 mg/dL Low 0.73-1.22 [facility] Comment on above: Order Comment: Speci men Type: BLOOD SPECIMENOrdering Facility: [facility] Address: [address] [place], [place] [address] Performed By: #### 2 4321-2, ####[facility]ELCLIA [id number] [place] [id number] [facility] ESTIMATED GLOMERULAR FILTRATION RATE 110 mL/min/1.73m??? Normal >=60 [facility] Comment on above: Order Comment: Shira feldman Type: BLOOD SPECIMENOrdering Facility: [facility] Address: [address] [place] [address] Result Comment: Luzmaria mated Glomerular Filtration Rate [...] actual GFR. Performed By: #### 2 4321-2, ####[facility]PITALIA [id number] [address] [place] Glucose [Mass/Vol] 101 mg/dL High 74-99 [facility] Comment on above: Order Comment: Shira feldman Type: BLOOD SPECIMENOrdering Facility: [facility] Address: [address] [place] [address] Result Comment: The [place] Diabetes Association (ADA) provides guidance for cutoff [...] Standards of Medical Care in Diabetes 2016, [place] Diabetes Association. Diabetes Care. 2016.39(Suppl 1). Performed By: #### 2 4321-2, ####[facility] LABORATORYCLIA [id number] [place] [address] [place] Potassium [Moles/Vol] 3.6 mmol/L Low 3.7-5.1 [facility] Comment on above: Order Comment: Speci men Type: BLOOD SPECIMENOrdering Facility: [facility] Address: [address] [place] [address] Performed By: #### 2 4321-2, ####[facility] LABORATORYCLIA [id number] [place] [address] [place] Sodium [Moles/Vol] 138 mmol/L Normal 136-144 [facility] Comment on above: Order Comment: Speci men Type: BLOOD SPECIMENOrdering Facility: [facility] Address: [address] [place] [address] Performed By: #### 2 4321-2, ####[facility] LABORATORYCLIA [id number] [address] [place] Urea nitrogen [Mass/Vol] 11 mg/dL Normal 9-24 [facility] Comment on above: Order Comment: Speci men Type: BLOOD SPECIMENOrdering Facility: [facility] Address: [address] [place] [address] Performed By: #### 2 4321-2, ####[facility] LABORATORYCLIA [id number] [address] [place] CASE MANAGEMon 08-16-2021 CASE MANAGEM Normal [facility] CBC W Auto Differential pane l (Bld)on 08-16-2021 Basophils (Bld) [#/Vol] 0.03 10*3/uL Normal <0.11 [facility] Comment on above: Order Comment: Speci men Type: BLOOD SPECIMENOrdering Facility: [facility] Address: [address] [place] [address] Performed By: #### 5 7021-8 ####[facility] LABORATORYCLIA [id number] [address] [place] Basophils/100 WBC (Bld) 0.4 % Normal [facility] Comment on above: Order Comment: Speci men Type: BLOOD SPECIMENOrdering Facility: [facility] Address: [address] [place] [address] Performed By: #### 5 7021-8 ####[facility] LABORATORYCLIA [id number] [address] Differential cell count method Nom (Bld) Auto Normal [facility] Comment on above: Order Comment: Speci men Type: BLOOD SPECIMENOrdering Facility: [facility] Address: [address] [place] [address] Performed By: #### 5 7021-8 ####[facility] LABORATORYCLIA [id number] [address] Eosinophils (Bld) [#/Vol] 0.19 10*3/uL Normal <0.46 [facility] Comment on above: Order Comment: Speci men Type: BLOOD SPECIMENOrdering Facility: [facility] Address: [address] [place] [address] Performed By: #### 5 7021-8 ####[facility] LABORATORYCLIA [id number] [address] Eosinophils/100 WBC (Bld) 2.5 % Normal [facility] Comment on above: Order Comment: Speci men Type: BLOOD SPECIMENOrdering Facility: [facility] Address: [address] [place] [address] Performed By: #### 5 7021-8 ####[facility] LABORATORYCLIA [id number] [address] Erythrocyte distribution width (RBC) [Ratio] 17.1 % High 11.5-15.0 [facility] Comment on above: Order Comment: Speci men Type: BLOOD SPECIMENOrdering Facility: [facility] Address: [address] [place] [address] Performed By: #### 5 7021-8 ####[facility] LABORATORYCLIA [id number] [place] [address] [place] Hematocrit (Bld) [Volume fraction] 29.2 % Low 39.0-51.0 [facility] Comment on above: Order Comment: Speci men Type: BLOOD SPECIMENOrdering Facility: [facility] Address: [address] [place] [address] Performed By: #### 5 7021-8 ####[facility]ORATORYCLIA [id number] [address] STATES OF [facility] Hemoglobin (Bld) [Mass/Vol] 9.0 g/dL Low 13.0-17.0 [facility] Comment on above: Order Comment: Speci men Type: BLOOD SPECIMENOrdering Facility: [facility] Address: [address] [place] [address] Performed By: #### 5 7021-8 ####[facility] LABORATORYCLIA [id number] [address] IMMATURE GRAN % 0.3 % Normal [facility] Comment on above: Order Comment: Speci men Type: BLOOD SPECIMENOrdering Facility: [facility] Address: [address] [place] [address] Performed By: #### 5 7021-8 ####[facility]ORATORYCLIA [id number] [address] IMMATURE GRAN ABS <0.03 Normal <0.10 [facility] Comment on above: Order Comment: Speci men Type: BLOOD SPECIMENOrdering Facility: [facility] Address: [address] [place] [address] Performed By: #### 5 7021-8 ####[facility]ORATORYCLIA [id number] [address] [place] Lymphocytes (Bld) [#/Vol] 1.41 10*3/uL Normal 1.00-4.00 [facility] Comment on above: Order Comment: Speci men Type: BLOOD SPECIMENOrdering Facility: [facility] Address: [address] [place] [address] Performed By: #### 5 7021-8 ####[facility] LABORATORYCLIA [id number] [address] Lymphocytes/100 WBC (Bld) 18.4 % Normal [facility] Comment on above: Order Comment: Speci men Type: BLOOD SPECIMENOrdering Facility: [facility] Address: [address] [place] [address] Performed By: #### 5 7021-8 ####[facility] LABORATORYCLIA [id number] [address] MCH (RBC) [Entitic mass] 28.0 pg Normal 26.0-34.0 [facility] Comment on above: Order Comment: Speci men Type: BLOOD SPECIMENOrdering Facility: [facility] Address: [address] [place] [address] Performed By: #### 5 7021-8 ####[facility] LABORATORYCLIA [id number] [address] MCHC (RBC) [Mass/Vol] 30.8 g/dL Normal 30.5-36.0 [facility] Comment on above: Order Comment: Speci men Type: BLOOD SPECIMENOrdering Facility: [facility] Address: [address] [place] [address] Performed By: #### 5 7021-8 ####[facility] LABORATORYCLIA [id number] [address] MCV (RBC) [Entitic vol] 91.0 fL Normal 80.0-100.0 [facility] Comment on above: Order Comment: Speci men Type: BLOOD SPECIMENOrdering Facility: [facility] Address: [address] [place] [address] Performed By: #### 5 7021-8 ####[facility] LABORATORYCLIA [id number] [address] Monocytes (Bld) [#/Vol] 0.47 10*3/uL Normal <0.87 [facility] Comment on above: Order Comment: Speci men Type: BLOOD SPECIMENOrdering Facility: [facility] Address: [address] [place] [address] Performed By: #### 5 7021-8 ####[facility] LABORATORYCLIA [id number] [address] [place] Monocytes/100 WBC (Bld) 6.1 % Normal [facility] Comment on above: Order Comment: Speci men Type: BLOOD SPECIMENOrdering Facility: [facility] Address: [address] [place] [address] Performed By: #### 5 7021-8 ####[facility] LABORATORYCLIA [id number] [place] [address] [place] Neutrophils (Bld) [#/Vol] 5.55 10*3/uL Normal 1.45-7.50 [facility] Comment on above: Order Comment: Speci men Type: BLOOD SPECIMENOrdering Facility: [facility] Address: [address] [place] [address] Performed By: #### 5 7021-8 ####[facility]ORATORYCLIA [id number] [address] [place] Neutrophils/100 WBC (Bld) 72.3 % Normal [facility] Comment on above: Order Comment: Speci men Type: BLOOD SPECIMENOrdering Facility: [facility] Address: [address] [place] [address] Performed By: #### 5 7021-8 ####[facility]ORATORYCLIA [id number] [place] [address] [place] Nucleated RBC (Bld) [#/Vol] 10*3/uL Normal <0.01 [facility] Comment on above: Order Comment: Speci men Type: BLOOD SPECIMENOrdering Facility: [facility] Address: [address] [place] [address] Performed By: #### 5 7021-8 ####[facility] LABORATORYCLIA [id number] [place] [address] [place] Nucleated RBC/100 WBC (Bld) [Ratio] 0.0 /100 WBC Normal [facility] Comment on above: Order Comment: Speci men Type: BLOOD SPECIMENOrdering Facility: [facility] Address: [address] [place], [place] [address] Performed By: #### 5 7021-8 ####[facility] LABORATORYCLIA [id number] [address] [place] Platelet mean volume (Bld) [Entitic vol] 9.3 fL Normal 9.0-12.7 [facility] Comment on above: Order Comment: Speci men Type: BLOOD SPECIMENOrdering Facility: [facility] Address: [address] [place], [place] [address] Performed By: #### 5 7021-8 ####[facility] LABORATORYCLIA [id number] [address] [place] Platelets (Bld) [#/Vol] 319 10*3/uL Normal 150-400 [facility] Comment on above: Order Comment: Speci men Type: BLOOD SPECIMENOrdering Facility: [facility] Address: [address] [place], [place] [address] Performed By: #### 5 7021-8 ####[facility] LABORATORYCLIA [id number] [place] [address] [place] RBC (Bld) [#/Vol] 3.21 10*6/uL Low 4.20-6.00 [facility] Comment on above: Order Comment: Speci men Type: BLOOD SPECIMENOrdering Facility: [facility] Address: [address] [place], [place] [address] Performed By: #### 5 7021-8 ####[facility] LABORATORYCLIA [id number] [address] [place] WBC (Bld) [#/Vol] 7.67 10*3/uL Normal 3.70-11.00 [facility] Comment on above: Order Comment: Speci men Type: BLOOD SPECIMENOrdering Facility: [facility] Address: [address] [place], [place] [address] Performed By: #### 5 7021-8 ####[facility] LABORATORYCLIA [id number] [address] [place] Basophils (Bld) [#/Vol] 0.04 10*3/uL Normal <0.11 [facility] Comment on above: Order Comment: Speci men Type: BLOOD SPECIMENOrdering Facility: [facility] Address: [address] [place] [address] Performed By: #### 5 7021-8 ####[facility]ORATORYCLIA [id number] [address] [place] Basophils/100 WBC (Bld) 0.5 % Normal [facility] Comment on above: Order Comment: Speci men Type: BLOOD SPECIMENOrdering Facility: [facility] Address: [address] [place] [address] Performed By: #### 5 7021-8 ####[facility]ORATORYCLIA [id number] [address] Differential cell count method Nom (Bld) Auto Normal [facility] Comment on above: Order Comment: Speci men Type: BLOOD SPECIMENOrdering Facility: [facility] Address: [address] [place] [address] Performed By: #### 5 7021-8 ####[facility]ORATORYCLIA [id number] [address] [place] Eosinophils (Bld) [#/Vol] 0.19 10*3/uL Normal <0.46 [facility] Comment on above: Order Comment: Speci men Type: BLOOD SPECIMENOrdering Facility: [facility] Address: [address] [place] [address] Performed By: #### 5 7021-8 ####[facility]ORATORYCLIA [id number] [address] Eosinophils/100 WBC (Bld) 2.5 % Normal [facility] Comment on above: Order Comment: Speci men Type: BLOOD SPECIMENOrdering Facility: [facility] Address: [address] [place] [address] Performed By: #### 5 7021-8 ####[facility] LABORATORYCLIA [id number] [address] Erythrocyte distribution width (RBC) [Ratio] 17.2 % High 11.5-15.0 [facility] Comment on above: Order Comment: Speci men Type: BLOOD SPECIMENOrdering Facility: [facility] Address: [address] [place] [address] Performed By: #### 5 7021-8 ####[facility] LABORATORYCLIA [id number] [address] Hematocrit (Bld) [Volume fraction] 29.5 % Low 39.0-51.0 [facility] Comment on above: Order Comment: Speci men Type: BLOOD SPECIMENOrdering Facility: [facility] Address: [address] [place] [address] Performed By: #### 5 7021-8 ####[facility] LABORATORYCLIA [id number] [address] Hemoglobin (Bld) [Mass/Vol] 9.2 g/dL Low 13.0-17.0 [facility] Comment on above: Order Comment: Speci men Type: BLOOD SPECIMENOrdering Facility: [facility] Address: [address] [place] [address] Performed By: #### 5 7021-8 ####[facility] LABORATORYCLIA [id number] [address] IMMATURE GRAN % 0.4 % Normal [facility] Comment on above: Order Comment: Speci men Type: BLOOD SPECIMENOrdering Facility: [facility] Address: [address] [place] [address] Performed By: #### 5 7021-8 ####[facility] LABORATORYCLIA [id number] [address] IMMATURE GRAN ABS 0.03 k/uL Normal <0.10 [facility] Comment on above: Order Comment: Speci men Type: BLOOD SPECIMENOrdering Facility: [facility] Address: [address] [place] [address] Performed By: #### 5 7021-8 ####[facility] LABORATORYCLIA [id number] [address] [facility] Lymphocytes (Bld) [#/Vol] 1.50 10*3/uL Normal 1.00-4.00 [facility] Comment on above: Order Comment: Speci men Type: BLOOD SPECIMENOrdering Facility: [facility] Address: [address] [place] [address] Performed By: #### 5 7021-8 ####[facility] LABORATORYCLIA [id number] [address] Lymphocytes/100 WBC (Bld) 19.7 % Normal [facility] Comment on above: Order Comment: Speci men Type: BLOOD SPECIMENOrdering Facility: [facility] Address: [address] [place] [address] Performed By: #### 5 7021-8 ####[facility] LABORATORYCLIA [id number] [address] [place] MCH (RBC) [Entitic mass] 28.3 pg Normal 26.0-34.0 [facility] Comment on above: Order Comment: Speci men Type: BLOOD SPECIMENOrdering Facility: [facility] Address: [address] [place] [address] Performed By: #### 5 7021-8 ####[facility] LABORATORYCLIA [id number] [address] [place] MCHC (RBC) [Mass/Vol] 31.2 g/dL Normal 30.5-36.0 [facility] Comment on above: Order Comment: Speci men Type: BLOOD SPECIMENOrdering Facility: [facility] Address: [address] [place] [address] Performed By: #### 5 7021-8 ####[facility] LABORATORYCLIA [id number] [address] [place] MCV (RBC) [Entitic vol] 90.8 fL Normal 80.0-100.0 [facility] Comment on above: Order Comment: Speci men Type: BLOOD SPECIMENOrdering Facility: [facility] Address: [address] [place] [address] Performed By: #### 5 7021-8 ####[facility] LABORATORYCLIA [id number] [place] [address] [place] Monocytes (Bld) [#/Vol] 0.49 10*3/uL Normal <0.87 [facility] Comment on above: Order Comment: Speci men Type: BLOOD SPECIMENOrdering Facility: [facility] Address: [address] [place] [address] Performed By: #### 5 7021-8 ####[facility] LABORATORYCLIA [id number] [address] [place] Monocytes/100 WBC (Bld) 6.4 % Normal [facility] Comment on above: Order Comment: Speci men Type: BLOOD SPECIMENOrdering Facility: [facility] Address: [address] [place] [address] Performed By: #### 5 7021-8 ####[facility] LABORATORYCLIA [id number] [address] [place] Neutrophils (Bld) [#/Vol] 5.38 10*3/uL Normal 1.45-7.50 [facility] Comment on above: Order Comment: Speci men Type: BLOOD SPECIMENOrdering Facility: [facility] Address: [address] [place] [address] Performed By: #### 5 7021-8 ####[facility] LABORATORYCLIA [id number] [address] [place] Neutrophils/100 WBC (Bld) 70.5 % Normal [facility] Comment on above: Order Comment: Speci men Type: BLOOD SPECIMENOrdering Facility: [facility] Address: [address] [place] [address] Performed By: #### 5 7021-8 ####[facility] LABORATORYCLIA [id number] [address] [place] Nucleated RBC (Bld) [#/Vol] 10*3/uL Normal <0.01 [facility] Comment on above: Order Comment: Speci men Type: BLOOD SPECIMENOrdering Facility: [facility] Address: [address] [place] [address] Performed By: #### 5 7021-8 ####[facility] LABORATORYCLIA [id number] [address] [place] Nucleated RBC/100 WBC (Bld) [Ratio] 0.0 /100 WBC Normal [facility] Comment on above: Order Comment: Speci men Type: BLOOD SPECIMENOrdering Facility: [facility] Address: [address] [place] [address] Performed By: #### 5 7021-8 ####[facility] LABORATORYCLIA [id number] [address] [place] Platelet mean volume (Bld) [Entitic vol] 9.0 fL Normal 9.0-12.7 [facility] Comment on above: Order Comment: Speci men Type: BLOOD SPECIMENOrdering Facility: [facility] Address: [address] [place] [address] Performed By: #### 5 7021-8 ####[facility] LABORATORYCLIA [id number] [address] [place] Platelets (Bld) [#/Vol] 316 10*3/uL Normal 150-400 [facility] Comment on above: Order Comment: Speci men Type: BLOOD SPECIMENOrdering Facility: [facility] Address: [address] [place] [address] Performed By: #### 5 7021-8 ####[facility] LABORATORYCLIA [id number] [address] [place] RBC (Bld) [#/Vol] 3.25 10*6/uL Low 4.20-6.00 [facility] Comment on above: Order Comment: Speci men Type: BLOOD SPECIMENOrdering Facility: [facility] Address: [address] [place] [address] Performed By: #### 5 7021-8 ####[facility] LABORATORYCLIA [id number] [address] OF [facility] WBC (Bld) [#/Vol] 7.63 10*3/uL Normal 3.70-11.00 [facility] Comment on above: Order Comment: Speci men Type: BLOOD SPECIMENOrdering Facility: [facility] Address: [address] [place] [address] Performed By: #### 5 7021-8 ####[facility] LABORATORYCLIA [id number] [address] Basophils (Bld) [#/Vol] Normal <0.11 [facility] Comment on above: Order Comment: Speci men Type: BLOOD SPECIMENOrdering Facility: [facility] Address: [address] [place] [address] Result Comment: Carolina Owens RN informed lab after results autoverified that she rd on the wrong patient. Lab to credit. Nurse to redraw on correct patient.Corrected result: Previously reported as 0.04 k/uL on 08/16/2021 at 4:44 AM EDT. Performed By: #### 5 7021-8 ####[facility] LABORATORYCLIA [id number] [address] STATES [facility] Basophils/100 WBC (Bld) Normal [facility] Comment on above: Order Comment: Speci [facility] Type: BLOOD SPECIMENOrdering Facility: [facility] Address: [address] [place] [address] Result Comment: Tati ected result: Previously reported as 0.4 % on 08/16/2021 at 4:44 AM EDT. Performed By: #### 5 7021-8 ####[facility] LABORATORYCLIA [id number] [address] [place] CBC W Differential panel, method unspecified (Bld) Normal [facility] Comment on above: Order Comment: Speci men Type: BLOOD SPECIMENOrdering Facility: [facility] Address: [address] [place] [address] Result Comment: Carolina Owens RN informed lab after results autoverified that she rd on the wrong patient. Lab to credit. Nurse to redraw on correct patient. Performed By: #### 5 7021-8 ####[facility]ORATORYCLIA [id number] [address] [place] Differential cell count method Nom (Bld) Normal [facility] Comment on above: Order Comment: Speci men Type: BLOOD SPECIMENOrdering Facility: [facility] Address: [address] [place] [address] Result Comment: Carolina Owens RN informed lab after results autoverified that she rd on the wrong patient. Lab to credit. Nurse to redraw on correct patient.Corrected result: Previously reported as Auto on 08/16/2021 at 4:44 AM EDT. Performed By: #### 5 7021-8 ####[facility]ORATORYCLIA [id number] [place] [address] [place] Eosinophils (Bld) [#/Vol] Normal <0.46 [facility] Comment on above: Order Comment: Speci men Type: BLOOD SPECIMENOrdering Facility: [facility] Address: [address] [place] [address] Result Comment: Carolina Owens RN informed lab after results autoverified that she rd on the wrong patient. Lab to credit. Nurse to redraw on correct patient.Corrected result: Previously reported as 0.07 k/uL on 08/16/2021 at 4:44 AM EDT. Performed By: #### 5 7021-8 ####[facility]ORATORYCLIA [id number] [address] [place] Eosinophils/100 WBC (Bld) Normal [facility] Comment on above: Order Comment: Speci men Type: BLOOD SPECIMENOrdering Facility: [facility] Address: [address] [place], [place] [phone] Result Comment: Carolina Owens RN informed lab after results autoverified that she rd on the wrong patient. Lab to credit. Nurse to redraw on correct patient.Corrected result: Previously reported as 0.7 % on 08/16/2021 at 4:44 AM EDT. Performed By: #### 5 7021-8 ####[facility] LABORATORYCLIA [id number] [address] [facility] Erythrocyte distribution width (RBC) [Ratio] Normal 11.5-15.0 [facility] Comment on above: Order Comment: Speci men Type: BLOOD SPECIMENOrdering Facility: [facility] Address: [address] [place] [address] Result Comment: Carolina Owens RN informed lab after results autoverified that she dr on the wrong patient. Lab to credit. Nurse to redraw on correct patient.Corrected result: Previously reported as 14.2 % on 08/16/2021 at 4:44 AM EDT. Performed By: #### 5 7021-8 ####[facility] LABORATORYCLIA [id number] [address] [place] OF [facility] Hematocrit (Bld) [Volume fraction] Normal 39.0-51.0 [facility] Comment on above: Order Comment: Speci men Type: BLOOD SPECIMENOrdering Facility: [facility] Address: [address] [place] [address] Result Comment: Carolina Owens RN informed lab after results autoverified that she rd on the wrong patient. Lab to credit. Nurse to redraw on correct patient.Corrected result: Previously reported as 34.3 % on 08/16/2021 at 4:44 AM EDT. Performed By: #### 5 7021-8 ####[facility] LABORATORYCLIA [id number] [address] [place] OF [facility] Hemoglobin (Bld) [Mass/Vol] Normal 13.0-17.0 [facility] Comment on above: Order Comment: Speci men Type: BLOOD SPECIMENOrdering Facility: [facility] Address: [address] [place] [address] Result Comment: Carolina Owens RN informed lab after results autoverified that she rd on the wrong patient. Lab to credit. Nurse to redraw on correct patient.Corrected result: Previously reported as 11.2 g/dL on 08/16/2021 at 4:44 AM EDT. Performed By: #### 5 7021-8 ####[facility] LABORATORYCLIA [id number] [address] OF [facility] IMMATURE GRAN % Normal [facility] Comment on above: Order Comment: Speci men Type: BLOOD SPECIMENOrdering Facility: [facility] Address: [address] [place] [address] Result Comment: Carolina Owens RN informed lab after results autoverified that she rd on the wrong patient. Lab to credit. Nurse to redraw on correct patient.Corrected result: Previously reported as 0.8 % on 08/16/2021 at 4:44 AM EDT. Performed By: #### 5 7021-8 ####[facility] LABORATORYCLIA [id number] [address] IMMATURE GRAN ABS Normal <0.10 [facility] Comment on above: Order Comment: Speci men Type: BLOOD SPECIMENOrdering Facility: [facility] Address: [address] [place] [address] Result Comment: Tati ected result: Previously reported as 0.08 k/uL on 08/16/2021 at 4:44 AM EDT. Performed By: #### 5 7021-8 ####[facility] LABORATORYCLIA [id number] [place] [address] [place] Lymphocytes (Bld) [#/Vol] Normal 1.00-4.00 [facility] Comment on above: Order Comment: Speci men Type: BLOOD SPECIMENOrdering Facility: [facility] Address: [address] [place] [address] Result Comment: Carolina Owens RN informed lab after results autoverified that she rd on the wrong patient. Lab to credit. Nurse to redraw on correct patient.Corrected result: Previously reported as 1.17 k/uL on 08/16/2021 at 4:44 AM EDT. Performed By: #### 5 7021-8 ####[facility] LABORATORYCLIA [id number] [address] Lymphocytes/100 WBC (Bld) Normal [facility] Comment on above: Order Comment: Speci men Type: BLOOD SPECIMENOrdering Facility: [facility] Address: [address] [place] [address] Result Comment: Carolina Owens RN informed lab after results autoverified that she rd on the wrong patient. Lab to credit. Nurse to redraw on correct patient.Corrected result: Previously reported as 12.0 % on 08/16/2021 at 4:44 AM EDT. Performed By: #### 5 7021-8 ####[facility] LABORATORYCLIA [id number] [address] MCHC (RBC) [Mass/Vol] Normal 30.5-36.0 [facility] Comment on above: Order Comment: Speci men Type: BLOOD SPECIMENOrdering Facility: [facility] Address: [address] [place] [address] Result Comment: Carolina Owens RN informed lab after results autoverified that she rd on the wrong patient. Lab to credit. Nurse to redraw on correct patient.Corrected result: Previously reported as 32.7 g/dL on 08/16/2021 at 4:44 AM EDT. Performed By: #### 5 7021-8 ####[facility] LABORATORYCLIA [id number] [address] MCV (RBC) [Entitic vol] Normal 80.0-100.0 [facility] Comment on above: Order Comment: Speci men Type: BLOOD SPECIMENOrdering Facility: [facility] Address: [address] [place] [address] Result Comment: Carolina Owens RN informed lab after results autoverified that she rd on the wrong patient. Lab to credit. Nurse to redraw on correct patient.Corrected result: Previously reported as 94.2 fL on 08/16/2021 at 4:44 AM EDT. Performed By: #### 5 7021-8 ####[facility] LABORATORYCLIA [id number] [address] [place] Monocytes (Bld) [#/Vol] Normal <0.87 [facility] Comment on above: Order Comment: Speci men Type: BLOOD SPECIMENOrdering Facility: [facility] Address: [address] [place] [address] Result Comment: Carolina Owens RN informed lab after results autoverified that she rd on the wrong patient. Lab to credit. Nurse to redraw on correct patient.Corrected result: Previously reported as 0.99 k/uL on 08/16/2021 at 4:44 AM EDT. Performed By: #### 5 7021-8 ####[facility] LABORATORYCLIA [id number] [address] Monocytes/100 WBC (Bld) Normal [facility] Comment on above: Order Comment: Speci men Type: BLOOD SPECIMENOrdering Facility: [facility] Address: [address] [place] [address] Result Comment: Carolina Owens RN informed lab after results autoverified that she rd on the wrong patient. Lab to credit. Nurse to redraw on correct patient.Corrected result: Previously reported as 10.2 % on 08/16/2021 at 4:44 AM EDT. Performed By: #### 5 7021-8 ####[facility] LABORATORYCLIA [id number] [address] [place] Neutrophils (Bld) [#/Vol] Normal 1.45-7.50 [facility] Comment on above: Order Comment: Speci men Type: BLOOD SPECIMENOrdering Facility: [facility] Address: [address] [place] [address] Result Comment: Carolina Owens RN informed lab after results autoverified that she rd on the wrong patient. Lab to credit. Nurse to redraw on correct patient.Corrected result: Previously reported as 7.40 k/uL on 08/16/2021 at 4:44 AM EDT. Performed By: #### 5 7021-8 ####[facility] LABORATORYCLIA [id number] [address] [place] Neutrophils/100 WBC (Bld) Normal [facility] Comment on above: Order Comment: Speci [facility] Type: BLOOD SPECIMENOrdering Facility: [facility] Address: [address] [place] [address] Result Comment: Carolina Owens RN informed lab after results autoverified that she rd on the wrong patient. Lab to credit. Nurse to redraw on correct patient.Corrected result: Previously reported as 75.9 % on 08/16/2021 at 4:44 AM EDT. Performed By: #### 5 7021-8 ####[facility] LABORATORYCLIA [id number] [address] [place] Platelet mean volume (Bld) [Entitic vol] Normal 9.0-12.7 [facility] Comment on above: Order Comment: Speci [facility] Type: BLOOD SPECIMENOrdering Facility: [facility] Address: [address] [place] [address] Result Comment: Carolina Owens RN informed lab after results autoverified that she rd on the wrong patient. Lab to credit. Nurse to redraw on correct patient.Corrected result: Previously reported as 9.1 fL on 08/16/2021 at 4:44 AM EDT. Performed By: #### 5 7021-8 ####[facility] LABORATORYCLIA [id number] [address] [place] Platelets (Bld) [#/Vol] Normal 150-400 [facility] Comment on above: Order Comment: Speci [facility] Type: BLOOD SPECIMENOrdering Facility: [facility] Address: [address] [place] [address] Result Comment: Carolina Owens RN informed lab after results autoverified that she rd on the wrong patient. Lab to credit. Nurse to redraw on correct patient.Corrected result: Previously reported as 338 k/uL on 08/16/2021 at 4:44 AM EDT. Performed By: #### 5 7021-8 ####[facility] LABORATORYCLIA [id number] [address] [facility] RBC (Bld) [#/Vol] Normal 4.20-6.00 [facility] Comment on above: Order Comment: Speci men Type: BLOOD SPECIMENOrdering Facility: [facility] Address: [address] [place] [address] Result Comment: Carolina Owens RN informed lab after results autoverified that she rd on the wrong patient. Lab to credit. Nurse to redraw on correct patient.Corrected result: Previously reported as 3.64 m/uL on 08/16/2021 at 4:44 AM EDT. Performed By: #### 5 7021-8 ####[facility] LABORATORYCLIA [id number] [address] WBC (Bld) [#/Vol] Normal 3.70-11.00 [facility] Comment on above: Order Comment: Speci men Type: BLOOD SPECIMENOrdering Facility: [facility] Address: [address] [place] [address] Result Comment: Carolina Owens RN informed lab after results autoverified that she rd on the wrong patient. Lab to credit. Nurse to redraw on correct patient.Corrected result: Previously reported as 9.75 k/uL on 08/16/2021 at 4:44 AM EDT. Performed By: #### 5 7021-8 ####[facility] LABORATORYCLIA [id number] [address] [facility] CONSULT PROGon 08-16-2021 CONSULT PROG Normal [facility] Magnesium SerPl-mCncon 08-16 Magnesium [Mass/Vol] 1.8 mg/dL Normal 1.7-2.3 [facility] Comment on above: Order Comment: Speci men Type: BLOOD SPECIMENOrdering Facility: [facility] Address: [address] [place] [address] Performed By: #### 2 4321-2, 81631-4 ####[facility] LABORATORYCLIA [id number] [place] [address] [place] NURSING PROGon 08-16-2021 NURSING PROG Normal [facility] Basic metabolic 2000 panelon 08-15-2021 Anion gap [Moles/Vol] 13 mmol/L Normal 9-18 [facility] Comment on above: Order Comment: Speci men Type: BLOOD SPECIMENOrdering Facility: [facility] Address: [address] [place] [address] Performed By: #### 2 4321-2 ####[facility] LABORATORYCLIA [id number] [place] [address] [place] Calcium [Mass/Vol] 9.0 mg/dL Normal 8.5-10.2 [facility] Comment on above: Order Comment: Speci men Type: BLOOD SPECIMENOrdering Facility: [facility] Address: [address] [place] [address] Performed By: #### 2 4321-2 ####[facility] LABORATORYCLIA [id number] [place] [address] [place] Chloride [Moles/Vol] 95 mmol/L Low 97-105 [facility] Comment on above: Order Comment: Speci men Type: BLOOD SPECIMENOrdering Facility: [facility] Address: [address] [place] [address] Performed By: #### 2 4321-2 ####[facility] LABORATORYCLIA [id number] [place] [address] [place] CO2 [Moles/Vol] 28 mmol/L Normal 22-30 [facility] Comment on above: Order Comment: Speci men Type: BLOOD SPECIMENOrdering Facility: [facility] Address: [address] [place] [address] Performed By: #### 2 4321-2 ####[facility] LABORATORYCLIA [id number] [place] [address] [place] Creatinine [Mass/Vol] 0.50 mg/dL Low 0.73-1.22 [facility] Comment on above: Order Comment: Shira feldman Type: BLOOD SPECIMENOrdering Facility: [facility] Address: [address] [address] Performed By: #### 2 4321-2 ####[facility] LABORATORYCLIA [id number] [address] [place] ESTIMATED GLOMERULAR FILTRATION RATE 110 mL/min/1.73m??? Normal >=60 [facility] Comment on above: Order Comment: Shira feldman Type: BLOOD SPECIMENOrdering Facility: [facility] Address: [address] [place] [address] Result Comment: Luzmaria mated Glomerular Filtration Rate [...] actual GFR. Performed By: #### 2 4321-2 ####[facility] LABORATORYCLIA [id number] [place] [address] [place] Glucose [Mass/Vol] 106 mg/dL High 74-99 [facility] Comment on above: Order Comment: Shira feldman Type: BLOOD SPECIMENOrdering Facility: [facility] Address: [address] [place] [address] Result Comment: [place] Diabetes Association (ADA) provides guidance for cutoff [...] Standards of Medical Care in Diabetes 2016, [place] Diabetes Association. Diabetes Care. 2016.39(Suppl 1). Performed By: #### 2 4321-2 ####[facility] LABORATORYCLIA [id number] [address] [facility] Potassium [Moles/Vol] 3.3 mmol/L Low 3.7-5.1 [facility] Comment on above: Order Comment: Speci men Type: BLOOD SPECIMENOrdering Facility: [facility] Address: [address] [place] [address] Performed By: #### 2 4321-2 ####[facility] LABORATORYCLIA [id number] [address] [place] Sodium [Moles/Vol] 136 mmol/L Normal 136-144 [facility] Comment on above: Order Comment: Speci men Type: BLOOD SPECIMENOrdering Facility: [facility] Address: [address] [place] [address] Performed By: #### 2 4321-2 ####[facility] LABORATORYCLIA [id number] [address] STATES [facility] Urea nitrogen [Mass/Vol] 11 mg/dL Normal 9-24 [facility] Comment on above: Order Comment: Speci men Type: BLOOD SPECIMENOrdering Facility: [facility] Address: [address] [place] [address] Performed By: #### 2 4321-2 ####[facility] LABORATORYCLIA [id number] [address] [facility] CASE MANAGEMon 08-15-2021 CASE MANAGEM Normal [facility] CBC W Auto Differential pane l (Bld)on 08-15-2021 Basophils (Bld) [#/Vol] 0.03 10*3/uL Normal <0.11 [facility] Comment on above: Order Comment: Speci men Type: BLOOD SPECIMENOrdering Facility: [facility] Address: [address] [place] [address] Performed By: #### 5 7021-8 ####[facility] LABORATORYCLIA [id number] [address] [place] Basophils/100 WBC (Bld) 0.4 % Normal [facility] Comment on above: Order Comment: Speci men Type: BLOOD SPECIMENOrdering Facility: [facility] Address: [address] [place] [address] Performed By: #### 5 7021-8 ####[facility] LABORATORYCLIA [id number] [address] [place] Differential cell count method Nom (Bld) Auto Normal [facility] Comment on above: Order Comment: Speci men Type: BLOOD SPECIMENOrdering Facility: [facility] Address: [address] [place] [address] Performed By: #### 5 7021-8 ####[facility] LABORATORYCLIA [id number] [address] [place] Eosinophils (Bld) [#/Vol] 0.20 10*3/uL Normal <0.46 [facility] Comment on above: Order Comment: Speci men Type: BLOOD SPECIMENOrdering Facility: [facility] Address: [address] [place] [address] Performed By: #### 5 7021-8 ####[facility] LABORATORYCLIA [id number] [address] Eosinophils/100 WBC (Bld) 2.5 % Normal [facility] Comment on above: Order Comment: Speci men Type: BLOOD SPECIMENOrdering Facility: [facility] Address: [address] [place] [address] Performed By: #### 5 7021-8 ####[facility] LABORATORYCLIA [id number] [address] [place] Erythrocyte distribution width (RBC) [Ratio] 16.7 % High 11.5-15.0 [facility] Comment on above: Order Comment: Speci men Type: BLOOD SPECIMENOrdering Facility: [facility] Address: [address] [place] [address] Performed By: #### 5 7021-8 ####[facility] LABORATORYCLIA [id number] [address] [facility] Hematocrit (Bld) [Volume fraction] 30.3 % Low 39.0-51.0 [facility] Comment on above: Order Comment: Speci men Type: BLOOD SPECIMENOrdering Facility: [facility] Address: [address] [place] [address] Performed By: #### 5 7021-8 ####[facility] LABORATORYCLIA [id number] [address] [place] Hemoglobin (Bld) [Mass/Vol] 9.4 g/dL Low 13.0-17.0 [facility] Comment on above: Order Comment: Speci men Type: BLOOD SPECIMENOrdering Facility: [facility] Address: [address] [place] [address] Performed By: #### 5 7021-8 ####[facility] LABORATORYCLIA [id number] [address] IMMATURE GRAN % 0.4 % Normal [facility] Comment on above: Order Comment: Speci men Type: BLOOD SPECIMENOrdering Facility: [facility] Address: [address] [place] [address] Performed By: #### 5 7021-8 ####[facility] LABORATORYCLIA [id number] [address] IMMATURE GRAN ABS 0.03 k/uL Normal <0.10 [facility] Comment on above: Order Comment: Speci men Type: BLOOD SPECIMENOrdering Facility: [facility] Address: [address] [place] [address] Performed By: #### 5 7021-8 ####[facility] LABORATORYCLIA [id number] [address] [place] Lymphocytes (Bld) [#/Vol] 1.50 10*3/uL Normal 1.00-4.00 [facility] Comment on above: Order Comment: Speci men Type: BLOOD SPECIMENOrdering Facility: [facility] Address: [address] [place] [address] Performed By: #### 5 7021-8 ####[facility] LABORATORYCLIA [id number] [address] Lymphocytes/100 WBC (Bld) 18.5 % Normal [facility] Comment on above: Order Comment: Speci men Type: BLOOD SPECIMENOrdering Facility: [facility] Address: [address] [place] [address] Performed By: #### 5 7021-8 ####[facility] LABORATORYCLIA [id number] [address] MCH (RBC) [Entitic mass] 29.0 pg Normal 26.0-34.0 [facility] Comment on above: Order Comment: Speci men Type: BLOOD SPECIMENOrdering Facility: [facility] Address: [address] [place] [address] Performed By: #### 5 7021-8 ####[facility] LABORATORYCLIA [id number] [address] MCHC (RBC) [Mass/Vol] 31.0 g/dL Normal 30.5-36.0 [facility] Comment on above: Order Comment: Speci men Type: BLOOD SPECIMENOrdering Facility: [facility] Address: [address] [place] [address] Performed By: #### 5 7021-8 ####[facility] LABORATORYCLIA [id number] [address] MCV (RBC) [Entitic vol] 93.5 fL Normal 80.0-100.0 [facility] Comment on above: Order Comment: Speci men Type: BLOOD SPECIMENOrdering Facility: [facility] Address: [address] [place] [address] Performed By: #### 5 7021-8 ####[facility] LABORATORYCLIA [id number] [address] Monocytes (Bld) [#/Vol] 0.47 10*3/uL Normal <0.87 [facility] Comment on above: Order Comment: Speci men Type: BLOOD SPECIMENOrdering Facility: [facility] Address: [address] [address] Performed By: #### 5 7021-8 ####[facility] LABORATORYCLIA [id number] [address] [place] Monocytes/100 WBC (Bld) 5.8 % Normal [facility] Comment on above: Order Comment: Speci men Type: BLOOD SPECIMENOrdering Facility: [facility] Address: [address] [place] [address] Performed By: #### 5 7021-8 ####[facility] LABORATORYCLIA [id number] [place] [address] [place] Neutrophils (Bld) [#/Vol] 5.87 10*3/uL Normal 1.45-7.50 [facility] Comment on above: Order Comment: Speci men Type: BLOOD SPECIMENOrdering Facility: [facility] Address: [address] [place] [address] Performed By: #### 5 7021-8 ####[facility] LABORATORYCLIA [id number] [address] [place] Neutrophils/100 WBC (Bld) 72.4 % Normal [facility] Comment on above: Order Comment: Speci men Type: BLOOD SPECIMENOrdering Facility: [facility] Address: [address] [place] [address] Performed By: #### 5 7021-8 ####[facility] LABORATORYCLIA [id number] [place] [address] [place] Nucleated RBC (Bld) [#/Vol] 10*3/uL Normal <0.01 [facility] Comment on above: Order Comment: Speci men Type: BLOOD SPECIMENOrdering Facility: [facility] Address: [address] [place] [address] Performed By: #### 5 7021-8 ####[facility] LABORATORYCLIA [id number] [place] [address] [place] Nucleated RBC/100 WBC (Bld) [Ratio] 0.0 /100 WBC Normal [facility] Comment on above: Order Comment: Speci men Type: BLOOD SPECIMENOrdering Facility: [facility] Address: [address] [place] [address] Performed By: #### 5 7021-8 ####[facility] LABORATORYCLIA [id number] [place] [address] [place] Platelet mean volume (Bld) [Entitic vol] 9.4 fL Normal 9.0-12.7 [facility] Comment on above: Order Comment: Speci men Type: BLOOD SPECIMENOrdering Facility: [facility] Address: [address] [place] [address] Performed By: #### 5 7021-8 ####[facility] LABORATORYCLIA [id number] [address] [place] Platelets (Bld) [#/Vol] 290 10*3/uL Normal 150-400 [facility] Comment on above: Order Comment: Speci men Type: BLOOD SPECIMENOrdering Facility: [facility] Address: [address] [place] [address] Performed By: #### 5 7021-8 ####[facility] LABORATORYCLIA [id number] [address] [place] RBC (Bld) [#/Vol] 3.24 10*6/uL Low 4.20-6.00 [facility] Comment on above: Order Comment: Speci men Type: BLOOD SPECIMENOrdering Facility: [facility] Address: [address] [place] [address] Performed By: #### 5 7021-8 ####[facility] LABORATORYCLIA [id number] [place] [address] [place] WBC (Bld) [#/Vol] 8.10 10*3/uL Normal 3.70-11.00 [facility] Comment on above: Order Comment: Speci men Type: BLOOD SPECIMENOrdering Facility: [facility] Address: [address] [address] Performed By: #### 5 7021-8 ####[facility] LABORATORYCLIA [id number] [place] [address] [place] THERAPY NTon 08-15-2021 THERAPY NT Normal [facility] THERAPY NT Normal [facility] THERAPY NT Normal [facility] Basic metabolic 2000 panelon 08-14-2021 Anion gap [Moles/Vol] 10 mmol/L Normal 9-18 [facility] Comment on above: Order Comment: Speci men Type: BLOOD SPECIMENOrdering Facility: [facility] Address: [address] [place] [address] Performed By: #### 2 4321-2 ####[facility] LABORATORYCLIA [id number] [place] [address] [place] Calcium [Mass/Vol] 8.8 mg/dL Normal 8.5-10.2 [facility] Comment on above: Order Comment: Speci men Type: BLOOD SPECIMENOrdering Facility: [facility] Address: [address] [place] [address] Performed By: #### 2 4321-2 ####[facility] LABORATORYCLIA [id number] [place] [address] [place] Chloride [Moles/Vol] 92 mmol/L Low 97-105 [facility] Comment on above: Order Comment: Speci men Type: BLOOD SPECIMENOrdering Facility: [facility] Address: [address] [address] Performed By: #### 2 4321-2 ####[facility] LABORATORYCLIA [id number] [place] [address] [place] CO2 [Moles/Vol] 29 mmol/L Normal 22-30 [facility] Comment on above: Order Comment: Speci men Type: BLOOD SPECIMENOrdering Facility: [facility] Address: [address] [address] Performed By: #### 2 4321-2 ####[facility]ORATORYCLIA [id number] [address] [place] [facility] Creatinine [Mass/Vol] 0.49 mg/dL Low 0.73-1.22 [facility] Comment on above: Order Comment: Shira feldman Type: BLOOD SPECIMENOrdering Facility: [facility] Address: [address] [address] Performed By: #### 2 4321-2 ####[facility] LABORATORYCLIA [id number] [address] ESTIMATED GLOMERULAR FILTRATION RATE 111 mL/min/1.73m??? Normal >=60 [facility] Comment on above: Order Comment: Shira feldman Type: BLOOD SPECIMENOrdering Facility: [facility] Address: [address] [place] [address] Result Comment: Luzmaria mated Glomerular Filtration Rate [...] actual GFR. Performed By: #### 2 4321-2 ####[facility] LABORATORYCLIA [id number] [address] [place] Glucose [Mass/Vol] 104 mg/dL High 74-99 [facility] Comment on above: Order Comment: Shira feldman Type: BLOOD SPECIMENOrdering Facility: [facility] Address: [address] [place] [address] Result Comment: The [place] Diabetes Association (ADA) provides guidance for cutoff [...] Standards of Medical Care in Diabetes 2016, [place] Diabetes [employer]. Diabetes Care. 2016.39(Suppl 1). Performed By: #### 2 4321-2 ####[facility] LABORATORYCLIA [id number] [address] [place] OF [facility] Potassium [Moles/Vol] 3.1 mmol/L Low 3.7-5.1 [facility] Comment on above: Order Comment: Speci men Type: BLOOD SPECIMENOrdering Facility: [facility] [facility] Address: [address] [place] [address] Performed By: #### 2 4321-2 ####[facility] LABORATORYCLIA [id number] [address] [place] [facility] Sodium [Moles/Vol] 131 mmol/L Low 136-144 [facility] Comment on above: Order Comment: Speci men Type: BLOOD SPECIMENOrdering Facility: [facility] Address: [address] [place] [address] Performed By: #### 2 4321-2 ####[facility] LABORATORYCLIA [id number] [address] [place] [facility] Urea nitrogen [Mass/Vol] 13 mg/dL Normal 9-24 [facility] Comment on above: Order Comment: Speci men Type: BLOOD SPECIMENOrdering Facility: [facility] Address: [address] [place] [address] Performed By: #### 2 4321-2 ####[facility] LABORATORYCLIA [id number] [address] [place] CBC W Auto Differential pane l (Bld)on 08-14-2021 Basophils (Bld) [#/Vol] 10*3/uL Normal <0.11 [facility] Comment on above: Order Comment: Speci men Type: BLOOD SPECIMENOrdering Facility: [facility] Address: [address] [place] [address] Performed By: #### 5 7021-8 ####[facility] LABORATORYCLIA [id number] [address] [place] Basophils/100 WBC (Bld) 0.2 % Normal [facility] Comment on above: Order Comment: Speci men Type: BLOOD SPECIMENOrdering Facility: [facility] Address: [address] [place] [address] Performed By: #### 5 7021-8 ####[facility] LABORATORYCLIA [id number] [address] Differential cell count method Nom (Bld) Auto Normal [facility] Comment on above: Order Comment: Speci men Type: BLOOD SPECIMENOrdering Facility: [facility] Address: [address] [place] [address] Performed By: #### 5 7021-8 ####[facility] LABORATORYCLIA [id number] [address] [place] Eosinophils (Bld) [#/Vol] 0.23 10*3/uL Normal <0.46 [facility] Comment on above: Order Comment: Speci men Type: BLOOD SPECIMENOrdering Facility: [facility] Address: [address] [place] [address] Performed By: #### 5 7021-8 ####[facility] LABORATORYCLIA [id number] [address] Eosinophils/100 WBC (Bld) 2.7 % Normal [facility] Comment on above: Order Comment: Speci men Type: BLOOD SPECIMENOrdering Facility: [facility] Address: [address] [place] [address] Performed By: #### 5 7021-8 ####[facility] LABORATORYCLIA [id number] [address] [place] Erythrocyte distribution width (RBC) [Ratio] 16.6 % High 11.5-15.0 [facility] Comment on above: Order Comment: Speci men Type: BLOOD SPECIMENOrdering Facility: [facility] Address: [address] [place] [address] Performed By: #### 5 7021-8 ####[facility] LABORATORYCLIA [id number] [address] Hematocrit (Bld) [Volume fraction] 28.6 % Low 39.0-51.0 [facility] Comment on above: Order Comment: Speci men Type: BLOOD SPECIMENOrdering Facility: [facility] Address: [address] [place] [address] Performed By: #### 5 7021-8 ####[facility] LABORATORYCLIA [id number] [address] Hemoglobin (Bld) [Mass/Vol] 9.0 g/dL Low 13.0-17.0 [facility] Comment on above: Order Comment: Speci men Type: BLOOD SPECIMENOrdering Facility: [facility] Address: [address] [place] [address] Performed By: #### 5 7021-8 ####[facility] LABORATORYCLIA [id number] [address] IMMATURE GRAN % 0.2 % Normal [facility] Comment on above: Order Comment: Speci men Type: BLOOD SPECIMENOrdering Facility: [facility] Address: [address] [place] [address] Performed By: #### 5 7021-8 ####[facility] LABORATORYCLIA [id number] [address] IMMATURE GRAN ABS <0.03 Normal <0.10 [facility] Comment on above: Order Comment: Speci men Type: BLOOD SPECIMENOrdering Facility: [facility] Address: [address] [place] [address] Performed By: #### 5 7021-8 ####[facility] LABORATORYCLIA [id number] [address] Lymphocytes (Bld) [#/Vol] 1.33 10*3/uL Normal 1.00-4.00 [facility] Comment on above: Order Comment: Speci men Type: BLOOD SPECIMENOrdering Facility: [facility] Address: [address] [place], [place] [address] Performed By: #### 5 7021-8 ####[facility] LABORATORYCLIA [id number] [address] Lymphocytes/100 WBC (Bld) 15.6 % Normal [facility] Comment on above: Order Comment: Speci men Type: BLOOD SPECIMENOrdering Facility: [facility] Address: [address] [place] [address] Performed By: #### 5 7021-8 ####[facility] LABORATORYCLIA [id number] [address] MCH (RBC) [Entitic mass] 29.0 pg Normal 26.0-34.0 [facility] Comment on above: Order Comment: Speci men Type: BLOOD SPECIMENOrdering Facility: [facility] Address: [address] [place] [address] Performed By: #### 5 7021-8 ####[facility] LABORATORYCLIA [id number] [address] MCHC (RBC) [Mass/Vol] 31.5 g/dL Normal 30.5-36.0 [facility] Comment on above: Order Comment: Speci men Type: BLOOD SPECIMENOrdering Facility: [facility] Address: [address] [place] [address] Performed By: #### 5 7021-8 ####[facility] LABORATORYCLIA [id number] [address] MCV (RBC) [Entitic vol] 92.3 fL Normal 80.0-100.0 [facility] Comment on above: Order Comment: Speci men Type: BLOOD SPECIMENOrdering Facility: [facility] Address: [address] [place] [address] Performed By: #### 5 7021-8 ####[facility] LABORATORYCLIA [id number] [address] [facility] Monocytes (Bld) [#/Vol] 0.44 10*3/uL Normal <0.87 [facility] Comment on above: Order Comment: Speci men Type: BLOOD SPECIMENOrdering Facility: [facility] Address: [address] [place] [address] Performed By: #### 5 7021-8 ####[facility] LABORATORYCLIA [id number] [address] Monocytes/100 WBC (Bld) 5.2 % Normal [facility] Comment on above: Order Comment: Speci men Type: BLOOD SPECIMENOrdering Facility: [facility] Address: [address] [place] [address] Performed By: #### 5 7021-8 ####[facility] LABORATORYCLIA [id number] [address] [place] Neutrophils (Bld) [#/Vol] 6.46 10*3/uL Normal 1.45-7.50 [facility] Comment on above: Order Comment: Speci men Type: BLOOD SPECIMENOrdering Facility: [facility] Address: [address] [place] [address] Performed By: #### 5 7021-8 ####[facility] LABORATORYCLIA [id number] [address] Neutrophils/100 WBC (Bld) 76.1 % Normal [facility] Comment on above: Order Comment: Speci men Type: BLOOD SPECIMENOrdering Facility: [facility] Address: [address] [place] [address] Performed By: #### 5 7021-8 ####[facility] LABORATORYCLIA [id number] [address] [place] Nucleated RBC (Bld) [#/Vol] 10*3/uL Normal <0.01 [facility] Comment on above: Order Comment: Speci men Type: BLOOD SPECIMENOrdering Facility: [facility] Address: [address] [place] [address] Performed By: #### 5 7021-8 ####[facility] LABORATORYCLIA [id number] [address] [facility] Nucleated RBC/100 WBC (Bld) [Ratio] 0.0 /100 WBC Normal [facility] Comment on above: Order Comment: Speci men Type: BLOOD SPECIMENOrdering Facility: [facility] Address: [address] [place] [address] Performed By: #### 5 7021-8 ####[facility] LABORATORYCLIA [id number] [address] [place] Platelet mean volume (Bld) [Entitic vol] 9.5 fL Normal 9.0-12.7 [facility] Comment on above: Order Comment: Speci men Type: BLOOD SPECIMENOrdering Facility: [facility] Address: [address] [place] [address] Performed By: #### 5 7021-8 ####[facility] LABORATORYCLIA [id number] [address] [place] Platelets (Bld) [#/Vol] 247 10*3/uL Normal 150-400 [facility] Comment on above: Order Comment: Speci men Type: BLOOD SPECIMENOrdering Facility: [facility] Address: [address] [place] [address] Performed By: #### 5 7021-8 ####[facility] LABORATORYCLIA [id number] [address] [place] RBC (Bld) [#/Vol] 3.10 10*6/uL Low 4.20-6.00 [facility] Comment on above: Order Comment: Speci men Type: BLOOD SPECIMENOrdering Facility: [facility] Address: [address] [place] [address] Performed By: #### 5 7021-8 ####[facility] LABORATORYCLIA [id number] [address] [place] WBC (Bld) [#/Vol] 8.50 10*3/uL Normal 3.70-11.00 [facility] Comment on above: Order Comment: Speci men Type: BLOOD SPECIMENOrdering Facility: [facility] Address: [address] [address] Performed By: #### 5 7021-8 ####[facility] LABORATORYCLIA [id number] [address] [place] CONSULTon 08-14-2021 CONSULT Normal [facility] NURSING PROGon 08-14-2021 NURSING PROG Normal [facility] CBC W Auto Differential pane l (Bld)on 08-13-2021 Basophils (Bld) [#/Vol] 10*3/uL Normal <0.11 [facility] Comment on above: Order Comment: Speci men Type: BLOOD SPECIMENOrdering Facility: [facility] Address: [address] [place] [address] Performed By: #### 5 7021-8 ####[facility] LABORATORYCLIA [id number] [address] [place] Basophils/100 WBC (Bld) 0.2 % Normal [facility] Comment on above: Order Comment: Speci men Type: BLOOD SPECIMENOrdering Facility: [facility] Address: [address] [place] [address] Performed By: #### 5 7021-8 ####[facility] LABORATORYCLIA [id number] [address] [place] Differential cell count method Nom (Bld) Auto Normal [facility] Comment on above: Order Comment: Speci men Type: BLOOD SPECIMENOrdering Facility: [facility] Address: [address] [address] Performed By: #### 5 7021-8 ####[facility] LABORATORYCLIA [id number] [place] [address] [place] Eosinophils (Bld) [#/Vol] 0.31 10*3/uL Normal <0.46 [facility] Comment on above: Order Comment: Speci men Type: BLOOD SPECIMENOrdering Facility: [facility] Address: [address] [address] Performed By: #### 5 7021-8 ####[facility] LABORATORYCLIA [id number] [address] Eosinophils/100 WBC (Bld) 3.7 % Normal [facility] Comment on above: Order Comment: Speci men Type: BLOOD SPECIMENOrdering Facility: [facility] Address: [address] [place] [address] Performed By: #### 5 7021-8 ####[facility] LABORATORYCLIA [id number] [address] Erythrocyte distribution width (RBC) [Ratio] 16.6 % High 11.5-15.0 [facility] Comment on above: Order Comment: Speci men Type: BLOOD SPECIMENOrdering Facility: [facility] Address: [address] [place] [address] Performed By: #### 5 7021-8 ####[facility] LABORATORYCLIA [id number] [address] Hematocrit (Bld) [Volume fraction] 27.5 % Low 39.0-51.0 [facility] Comment on above: Order Comment: Speci men Type: BLOOD SPECIMENOrdering Facility: [facility] Address: [address] [place] [address] Performed By: #### 5 7021-8 ####[facility] LABORATORYCLIA [id number] [address] [place] Hemoglobin (Bld) [Mass/Vol] 8.4 g/dL Low 13.0-17.0 [facility] Comment on above: Order Comment: Speci men Type: BLOOD SPECIMENOrdering Facility: [facility] Address: [address] [place] [address] Performed By: #### 5 7021-8 ####[facility] LABORATORYCLIA [id number] [address] IMMATURE GRAN % 0.5 % Normal [facility] Comment on above: Order Comment: Speci men Type: BLOOD SPECIMENOrdering Facility: [facility] Address: [address] [place] [address] Performed By: #### 5 7021-8 ####[facility] LABORATORYCLIA [id number] [address] IMMATURE GRAN ABS 0.04 k/uL Normal <0.10 [facility] Comment on above: Order Comment: Speci men Type: BLOOD SPECIMENOrdering Facility: [facility] Address: [address] [place] [address] Performed By: #### 5 7021-8 ####[facility] LABORATORYCLIA [id number] [address] Lymphocytes (Bld) [#/Vol] 1.55 10*3/uL Normal 1.00-4.00 [facility] Comment on above: Order Comment: Speci men Type: BLOOD SPECIMENOrdering Facility: [facility] Address: [address] [place] [address] Performed By: #### 5 7021-8 ####[facility] LABORATORYCLIA [id number] [address] Lymphocytes/100 WBC (Bld) 18.7 % Normal [facility] Comment on above: Order Comment: Speci men Type: BLOOD SPECIMENOrdering Facility: [facility] Address: [address] [place] [address] Performed By: #### 5 7021-8 ####[facility] LABORATORYCLIA [id number] [address] MCH (RBC) [Entitic mass] 28.9 pg Normal 26.0-34.0 [facility] Comment on above: Order Comment: Speci men Type: BLOOD SPECIMENOrdering Facility: [facility] Address: [address] [place] [address] Performed By: #### 5 7021-8 ####[facility] LABORATORYCLIA [id number] [address] MCHC (RBC) [Mass/Vol] 30.5 g/dL Normal 30.5-36.0 [facility] Comment on above: Order Comment: Speci men Type: BLOOD SPECIMENOrdering Facility: [facility] Address: [address] [place] [address] Performed By: #### 5 7021-8 ####[facility] LABORATORYCLIA [id number] [address] [place] MCV (RBC) [Entitic vol] 94.5 fL Normal 80.0-100.0 [facility] Comment on above: Order Comment: Speci men Type: BLOOD SPECIMENOrdering Facility: [facility] Address: [address] [place] [address] Performed By: #### 5 7021-8 ####[facility] LABORATORYCLIA [id number] [address] [place] Monocytes (Bld) [#/Vol] 0.47 10*3/uL Normal <0.87 [facility] Comment on above: Order Comment: Speci men Type: BLOOD SPECIMENOrdering Facility: [facility] Address: [address] [place] [address] Performed By: #### 5 7021-8 ####[facility] LABORATORYCLIA [id number] [address] [place] Monocytes/100 WBC (Bld) 5.7 % Normal [facility] Comment on above: Order Comment: Speci men Type: BLOOD SPECIMENOrdering Facility: [facility] Address: [address] [place] [address] Performed By: #### 5 7021-8 ####[facility] LABORATORYCLIA [id number] [address] [place] Neutrophils (Bld) [#/Vol] 5.92 10*3/uL Normal 1.45-7.50 [facility] Comment on above: Order Comment: Speci men Type: BLOOD SPECIMENOrdering Facility: [facility] Address: [address] [place] [address] Performed By: #### 5 7021-8 ####[facility] LABORATORYCLIA [id number] [address] Neutrophils/100 WBC (Bld) 71.2 % Normal [facility] Comment on above: Order Comment: Speci men Type: BLOOD SPECIMENOrdering Facility: [facility] Address: [address] [place] [address] Performed By: #### 5 7021-8 ####[facility] LABORATORYCLIA [id number] [address] [place] Nucleated RBC (Bld) [#/Vol] 10*3/uL Normal <0.01 [facility] Comment on above: Order Comment: Speci men Type: BLOOD SPECIMENOrdering Facility: [facility] Address: [address] [place] [address] Performed By: #### 5 7021-8 ####[facility] LABORATORYCLIA [id number] [address] Nucleated RBC/100 WBC (Bld) [Ratio] 0.0 /100 WBC Normal [facility] Comment on above: Order Comment: Speci men Type: BLOOD SPECIMENOrdering Facility: [facility] Address: [address] [place] [address] Performed By: #### 5 7021-8 ####[facility] LABORATORYCLIA [id number] [address] [place] Platelet mean volume (Bld) [Entitic vol] 9.9 fL Normal 9.0-12.7 [facility] Comment on above: Order Comment: Speci men Type: BLOOD SPECIMENOrdering Facility: [facility] Address: [address] [place] [address] Performed By: #### 5 7021-8 ####[facility] LABORATORYCLIA [id number] [address] [place] Platelets (Bld) [#/Vol] 203 10*3/uL Normal 150-400 [facility] Comment on above: Order Comment: Speci men Type: BLOOD SPECIMENOrdering Facility: [facility] Address: [address] [place] [address] Performed By: #### 5 7021-8 ####[facility] LABORATORYCLIA [id number] [address] RBC (Bld) [#/Vol] 2.91 10*6/uL Low 4.20-6.00 [facility] Comment on above: Order Comment: Speci men Type: BLOOD SPECIMENOrdering Facility: [facility] Address: [address] [place] [address] Performed By: #### 5 7021-8 ####[facility] LABORATORYCLIA [id number] [address] WBC (Bld) [#/Vol] 8.31 10*3/uL Normal 3.70-11.00 [facility] Comment on above: Order Comment: Speci men Type: BLOOD SPECIMENOrdering Facility: [facility] Address: [address] [place] [address] Performed By: #### 5 7021-8 ####[facility] LABORATORYCLIA [id number] [address] aPTT PPPon 08-13-2021 aPTT Coag (PPP) [Time] 69.7 s High 23.0-32.4 [facility] Comment on above: Order Comment: Speci men Type: BLOOD SPECIMENOrdering Facility: [facility] Address: [address] [place] [address] Performed By: #### 1 4979-9 ####[facility] LABORATORYCLIA [id number] [address] aPTT Coag (PPP) [Time] 70.6 s High 23.0-32.4 [facility] Comment on above: Order Comment: Speci men Type: BLOOD SPECIMENOrdering Facility: [facility] Address: [address] [place] [address] Performed By: #### 1 4979-9 ####[facility] LABORATORYCLIA [id number] [address] ALLIED HEALTHon 08-12-2021 ALLIED HEALTH Normal [facility] ALLIED HEALTH Normal [facility] Basic metabolic 2000 panelon 08-12-2021 Anion gap [Moles/Vol] 7 mmol/L Low 9-18 [facility] Comment on above: Order Comment: Speci men Type: BLOOD SPECIMENOrdering Facility: [facility] Address: [address] [place] [address] Performed By: #### 2 4321-2, , 2776-05 ####[facility] LABORATORYCLIA [id number] [place] [address] [place] Calcium [Mass/Vol] 8.8 mg/dL Normal 8.5-10.2 [facility] Comment on above: Order Comment: Speci men Type: BLOOD SPECIMENOrdering Facility: [facility] Address: [address] [place] [address] Performed By: #### 2 4321-2, , 2776-05 ####[facility] LABORATORYCLIA [id number] [place] [address] [place] Chloride [Moles/Vol] 96 mmol/L Low 97-105 [facility] Comment on above: Order Comment: Speci men Type: BLOOD SPECIMENOrdering Facility: [facility] Address: [address] [place] [address] Performed By: #### 2 4321-2, , 2776-05 ####[facility] LABORATORYCLIA [id number] [place] [address] [place] CO2 [Moles/Vol] 32 mmol/L High 22-30 [facility] Comment on above: Order Comment: Speci men Type: BLOOD SPECIMENOrdering Facility: [facility] Address: [address] [place] [address] Performed By: #### 2 4321-2, , 2776-05 ####[facility] LABORATORYCLIA [id number] [place] [address] [place] Creatinine [Mass/Vol] 0.52 mg/dL Low 0.73-1.22 [facility] Comment on above: Order Comment: Shira feldman Type: BLOOD SPECIMENOrdering Facility: [facility] Address: [address] [phone] Performed By: #### 2 4321-2, 10576-5, 2776-05 ####[facility] LABORATORYCLIA [id number] [address] [facility] ESTIMATED GLOMERULAR FILTRATION RATE 109 mL/min/1.73m??? Normal >=60 [facility] Comment on above: Order Comment: Shira feldman Type: BLOOD SPECIMENOrdering Facility: [facility] Address: [address] [address] Result Comment: Luzmaria mated Glomerular Filtration Rate [...] Performed By: #### 2 4321-2, , 2776-05 ####[facility] LABORATORYCLIA [id number] [place] [address] [place] Glucose [Mass/Vol] 119 mg/dL High 74-99 [facility] Comment on above: Order Comment: Shira feldman Type: BLOOD SPECIMENOrdering Facility: [facility] Address: [address] [address] Result Comment: The [place] Diabetes Association (ADA) provides guidance for cutoff [...] Standards of Medical Care in Diabetes 2016, [place] [employer] Association. Diabetes Care. 2016.39(Suppl 1). Performed By: #### 2 4321-2, , 2776-05 ####[facility] LABORATORYCLIA [id number] [place] [address] [place] Potassium [Moles/Vol] 3.7 mmol/L Normal 3.7-5.1 [facility] Comment on above: Order Comment: Speci men Type: BLOOD SPECIMENOrdering Facility: [facility] Address: [address] [place] [address] Performed By: #### 2 4321-2, , 2776-05 ####[facility] LABORATORYCLIA [id number] [address] [place] Sodium [Moles/Vol] 135 mmol/L Low 136-144 [facility] Comment on above: Order Comment: Speci men Type: BLOOD SPECIMENOrdering Facility: [facility] Address: [address] [place] [address] Performed By: #### 2 4321-2, , 2776-05 ####[facility] LABORATORYCLIA [id number] [address] [place] Urea nitrogen [Mass/Vol] 20 mg/dL Normal 9-24 [facility] Comment on above: Order Comment: Speci men Type: BLOOD SPECIMENOrdering Facility: [facility] Address: [address] [place] [address] Performed By: #### 2 4321-2, , 2776-05 ####[facility] LABORATORYCLIA [id number] [place] [address] [place] CASE MANAGEMon 08-12-2021 CASE MANAGEM Normal [facility] CBC W Auto Differential pane l (Bld)on 08-12-2021 Basophils (Bld) [#/Vol] 0.04 10*3/uL Normal <0.11 [facility] Comment on above: Order Comment: Speci men Type: BLOOD SPECIMENOrdering Facility: [facility] Address: [address] [place] [address] Performed By: #### 5 7021-8 ####[facility]ORATORYCLIA [id number] [address] Basophils/100 WBC (Bld) 0.5 % Normal [facility] Comment on above: Order Comment: Speci men Type: BLOOD SPECIMENOrdering Facility: [facility] Address: [address] [place] [address] Performed By: #### 5 7021-8 ####[facility] LABORATORYCLIA [id number] [address] Differential cell count method Nom (Bld) Auto Normal [facility] Comment on above: Order Comment: Speci men Type: BLOOD SPECIMENOrdering Facility: [facility] Address: [address] [place] [address] Performed By: #### 5 7021-8 ####[facility] LABORATORYCLIA [id number] [address] [place] Eosinophils (Bld) [#/Vol] 0.19 10*3/uL Normal <0.46 [facility] Comment on above: Order Comment: Speci men Type: BLOOD SPECIMENOrdering Facility: [facility] Address: [address] [place] [address] Performed By: #### 5 7021-8 ####[facility] LABORATORYCLIA [id number] [address] Eosinophils/100 WBC (Bld) 2.3 % Normal [facility] Comment on above: Order Comment: Speci men Type: BLOOD SPECIMENOrdering Facility: [facility] Address: [address] [place] [address] Performed By: #### 5 7021-8 ####[facility]ORATORYCLIA [id number] [address] [place] Erythrocyte distribution width (RBC) [Ratio] 17.1 % High 11.5-15.0 [facility] Comment on above: Order Comment: Speci men Type: BLOOD SPECIMENOrdering Facility: [facility] Address: [address] [place] [address] Performed By: #### 5 7021-8 ####[facility] LABORATORYCLIA [id number] [address] Hematocrit (Bld) [Volume fraction] 25.3 % Low 39.0-51.0 [facility] Comment on above: Order Comment: Speci men Type: BLOOD SPECIMENOrdering Facility: [facility] Address: [address] [place] [address] Performed By: #### 5 7021-8 ####[facility] LABORATORYCLIA [id number] [address] Hemoglobin (Bld) [Mass/Vol] 7.9 g/dL Low 13.0-17.0 [facility] Comment on above: Order Comment: Speci men Type: BLOOD SPECIMENOrdering Facility: [facility] Address: [address] [place] [address] Performed By: #### 5 7021-8 ####[facility] LABORATORYCLIA [id number] [address] IMMATURE GRAN % 0.5 % Normal [facility] Comment on above: Order Comment: Speci men Type: BLOOD SPECIMENOrdering Facility: [facility] Address: [address] [place] [address] Performed By: #### 5 7021-8 ####[facility] LABORATORYCLIA [id number] [address] IMMATURE GRAN ABS 0.04 k/uL Normal <0.10 [facility] Comment on above: Order Comment: Speci men Type: BLOOD SPECIMENOrdering Facility: [facility] Address: [address] [place] [address] Performed By: #### 5 7021-8 ####[facility] LABORATORYCLIA [id number] [address] Lymphocytes (Bld) [#/Vol] 1.69 10*3/uL Normal 1.00-4.00 [facility] Comment on above: Order Comment: Speci men Type: BLOOD SPECIMENOrdering Facility: [facility] Address: [address] [place] [address] Performed By: #### 5 7021-8 ####[facility] LABORATORYCLIA [id number] [address] Lymphocytes/100 WBC (Bld) 20.1 % Normal [facility] Comment on above: Order Comment: Speci men Type: BLOOD SPECIMENOrdering Facility: [facility] Address: [address] [place] [address] Performed By: #### 5 7021-8 ####[facility] LABORATORYCLIA [id number] [address] [place] MCH (RBC) [Entitic mass] 28.5 pg Normal 26.0-34.0 [facility] Comment on above: Order Comment: Speci men Type: BLOOD SPECIMENOrdering Facility: [facility] Address: [address] [place] [address] Performed By: #### 5 7021-8 ####[facility] LABORATORYCLIA [id number] [address] MCHC (RBC) [Mass/Vol] 31.2 g/dL Normal 30.5-36.0 [facility] Comment on above: Order Comment: Speci men Type: BLOOD SPECIMENOrdering Facility: [facility] Address: [address] [place] [address] Performed By: #### 5 7021-8 ####[facility] LABORATORYCLIA [id number] [address] STATES [facility] MCV (RBC) [Entitic vol] 91.3 fL Normal 80.0-100.0 [facility] Comment on above: Order Comment: Speci men Type: BLOOD SPECIMENOrdering Facility: [facility] Address: [address] [place] [address] Performed By: #### 5 7021-8 ####[facility]ORATORYCLIA [id number] [place] [address] [place] Monocytes (Bld) [#/Vol] 0.53 10*3/uL Normal <0.87 [facility] Comment on above: Order Comment: Speci men Type: BLOOD SPECIMENOrdering Facility: [facility] Address: [address] [place] [address] Performed By: #### 5 7021-8 ####[facility]ATORYCLIA [id number] [address] [place] Monocytes/100 WBC (Bld) 6.3 % Normal [facility] Comment on above: Order Comment: Speci men Type: BLOOD SPECIMENOrdering Facility: [facility] Address: [address] [place] [address] Performed By: #### 5 7021-8 ####[facility] LABORATORYCLIA [id number] [place] [address] [place] Neutrophils (Bld) [#/Vol] 5.90 10*3/uL Normal 1.45-7.50 [facility] Comment on above: Order Comment: Speci men Type: BLOOD SPECIMENOrdering Facility: [facility] Address: [address] [place] [address] Performed By: #### 5 7021-8 ####[facility] LABORATORYCLIA [id number] [address] [place] Neutrophils/100 WBC (Bld) 70.3 % Normal [facility] Comment on above: Order Comment: Speci men Type: BLOOD SPECIMENOrdering Facility: [facility] Address: [address] [place] [address] Performed By: #### 5 7021-8 ####[facility] LABORATORYCLIA [id number] [place] [address] [place] Nucleated RBC (Bld) [#/Vol] 10*3/uL Normal <0.01 [facility] Comment on above: Order Comment: Speci men Type: BLOOD SPECIMENOrdering Facility: [facility] Address: [address] [place] [address] Performed By: #### 5 7021-8 ####[facility] LABORATORYCLIA [id number] [address] Nucleated RBC/100 WBC (Bld) [Ratio] 0.0 /100 WBC Normal [facility] Comment on above: Order Comment: Speci men Type: BLOOD SPECIMENOrdering Facility: [facility] Address: [address] [place] [address] Performed By: #### 5 7021-8 ####[facility] LABORATORYCLIA [id number] [address] [place] Platelet mean volume (Bld) [Entitic vol] 9.8 fL Normal 9.0-12.7 [facility] Comment on above: Order Comment: Speci men Type: BLOOD SPECIMENOrdering Facility: [facility] Address: [address] [place] [address] Performed By: #### 5 7021-8 ####[facility] LABORATORYCLIA [id number] [address] [place] Platelets (Bld) [#/Vol] 164 10*3/uL Normal 150-400 [facility] Comment on above: Order Comment: Speci men Type: BLOOD SPECIMENOrdering Facility: [facility] Address: [address] [place] [address] Performed By: #### 5 7021-8 ####[facility] LABORATORYCLIA [id number] [address] [place] RBC (Bld) [#/Vol] 2.77 10*6/uL Low 4.20-6.00 [facility] Comment on above: Order Comment: Speci men Type: BLOOD SPECIMENOrdering Facility: [facility] Address: [address] [place] [address] Performed By: #### 5 7021-8 ####[facility] LABORATORYCLIA [id number] [place] [address] [place] WBC (Bld) [#/Vol] 8.39 10*3/uL Normal 3.70-11.00 [facility] Comment on above: Order Comment: Speci men Type: BLOOD SPECIMENOrdering Facility: [facility] Address: [address] [place] [address] Performed By: #### 5 7021-8 ####[facility] LABORATORYCLIA [id number] [address] [place] BRAIN WO IVCONon 08-13-19 CT BRAIN WO IVCON Normal [facility] CT BRAIN WO IVCON Normal [facility] Magnesium SerPl-mCncon 08-12 Magnesium [Mass/Vol] 2.0 mg/dL Normal 1.7-2.3 [facility] Comment on above: Order Comment: Speci men Type: BLOOD SPECIMENOrdering Facility: [facility] Address: [address] [place] [address] Performed By: #### 2 4321-2, , 2771 ####[facility] LABORATORYCLIA [id number] [address] Phosphate SerPl-mCncon 08-12 Phosphate [Mass/Vol] 2.9 mg/dL Normal 2.7-4.8 [facility] Comment on above: Order Comment: Speci men Type: BLOOD SPECIMENOrdering Facility: [facility] Address: [address] [place] [address] Performed By: #### 2 4321-2, , 27711-04 ####[facility] LABORATORYCLIA [id number] [address] [place] THERAPY NTon 08-12-2021 THERAPY NT Normal [facility] THERAPY NT Normal [facility] aPTT PPPon 08-12-2021 aPTT Coag (PPP) [Time] 94.2 s High 23.0-32.4 [facility] Comment on above: Order Comment: Speci men Type: BLOOD SPECIMENOrdering Facility: [facility] Address: [address] [place] [address] Performed By: #### 1 4979-9 ####[facility] LABORATORYCLIA [id number] [address] aPTT Coag (PPP) [Time] 84.4 s High 23.0-32.4 [facility] Comment on above: Order Comment: Speci men Type: BLOOD SPECIMENOrdering Facility: [facility] Address: [address] [place] [address] Performed By: #### 1 4979-9 ####[facility] LABORATORYCLIA [id number] [address] aPTT Coag (PPP) [Time] 71.3 s High 23.0-32.4 [facility] Comment on above: Order Comment: Speci men Type: BLOOD SPECIMENOrdering Facility: [facility] Address: [address] [place] [address] Performed By: #### 1 4979-9 ####[facility] LABORATORYCLIA [id number] [address] [place] ALLIED HEALTHon 08-11-2021 ALLIED HEALTH Normal [facility] CBC W Auto Differential pane l (Bld)on 08-11-2021 Basophils (Bld) [#/Vol] 10*3/uL Normal <0.11 [facility] Comment on above: Order Comment: Speci men Type: BLOOD SPECIMENOrdering Facility: [facility] Address: [address] [place] [address] Performed By: #### 5 7021-8 ####[facility] LABORATORYCLIA [id number] [address] Basophils/100 WBC (Bld) 0.2 % Normal [facility] Comment on above: Order Comment: Speci men Type: BLOOD SPECIMENOrdering Facility: [facility] Address: [address] [place] [address] Performed By: #### 5 7021-8 ####[facility] LABORATORYCLIA [id number] [address] Differential cell count method Nom (Bld) Auto Normal [facility] Comment on above: Order Comment: Speci men Type: BLOOD SPECIMENOrdering Facility: [facility] Address: [address] [place] [address] Performed By: #### 5 7021-8 ####[facility] LABORATORYCLIA [id number] [address] [place] Eosinophils (Bld) [#/Vol] 0.16 10*3/uL Normal <0.46 [facility] Comment on above: Order Comment: Speci men Type: BLOOD SPECIMENOrdering Facility: [facility] Address: [address] [place] [address] Performed By: #### 5 7021-8 ####[facility] LABORATORYCLIA [id number] [address] Eosinophils/100 WBC (Bld) 1.8 % Normal [facility] Comment on above: Order Comment: Speci men Type: BLOOD SPECIMENOrdering Facility: [facility] Address: [address] [place] [address] Performed By: #### 5 7021-8 ####[facility] LABORATORYCLIA [id number] [address] Erythrocyte distribution width (RBC) [Ratio] 17.3 % High 11.5-15.0 [facility] Comment on above: Order Comment: Speci men Type: BLOOD SPECIMENOrdering Facility: [facility] Address: [address] [place] [address] Performed By: #### 5 7021-8 ####[facility] LABORATORYCLIA [id number] [address] Hematocrit (Bld) [Volume fraction] 26.6 % Low 39.0-51.0 [facility] Comment on above: Order Comment: Speci men Type: BLOOD SPECIMENOrdering Facility: [facility] Address: [address] [place] [address] Performed By: #### 5 7021-8 ####[facility] LABORATORYCLIA [id number] [address] OF [facility] Hemoglobin (Bld) [Mass/Vol] 8.2 g/dL Low 13.0-17.0 [facility] Comment on above: Order Comment: Speci men Type: BLOOD SPECIMENOrdering Facility: [facility] Address: [address] [place] [address] Performed By: #### 5 7021-8 ####[facility] LABORATORYCLIA [id number] [address] IMMATURE GRAN % 0.6 % Normal [facility] Comment on above: Order Comment: Speci men Type: BLOOD SPECIMENOrdering Facility: [facility] Address: [address] [place] [address] Performed By: #### 5 7021-8 ####[facility] LABORATORYCLIA [id number] [address] IMMATURE GRAN ABS 0.05 k/uL Normal <0.10 [facility] Comment on above: Order Comment: Speci men Type: BLOOD SPECIMENOrdering Facility: [facility] Address: [address] [place] [address] Performed By: #### 5 7021-8 ####[facility] LABORATORYCLIA [id number] [address] [place] Lymphocytes (Bld) [#/Vol] 1.40 10*3/uL Normal 1.00-4.00 [facility] Comment on above: Order Comment: Speci men Type: BLOOD SPECIMENOrdering Facility: [facility] Address: [address] [place] [address] Performed By: #### 5 7021-8 ####[facility] LABORATORYCLIA [id number] [address] Lymphocytes/100 WBC (Bld) 15.8 % Normal [facility] Comment on above: Order Comment: Speci men Type: BLOOD SPECIMENOrdering Facility: [facility] Address: [address] [place] [address] Performed By: #### 5 7021-8 ####[facility] LABORATORYCLIA [id number] [address] MCH (RBC) [Entitic mass] 28.4 pg Normal 26.0-34.0 [facility] Comment on above: Order Comment: Speci men Type: BLOOD SPECIMENOrdering Facility: [facility] Address: [address] [place] [address] Performed By: #### 5 7021-8 ####[facility] LABORATORYCLIA [id number] [address] MCHC (RBC) [Mass/Vol] 30.8 g/dL Normal 30.5-36.0 [facility] Comment on above: Order Comment: Speci men Type: BLOOD SPECIMENOrdering Facility: [facility] Address: [address] [place] [address] Performed By: #### 5 7021-8 ####[facility] LABORATORYCLIA [id number] [address] STATES [facility] MCV (RBC) [Entitic vol] 92.0 fL Normal 80.0-100.0 [facility] Comment on above: Order Comment: Speci men Type: BLOOD SPECIMENOrdering Facility: [facility] Address: [address] [place] [address] Performed By: #### 5 7021-8 ####[facility] LABORATORYCLIA [id number] [address] Monocytes (Bld) [#/Vol] 0.61 10*3/uL Normal <0.87 [facility] Comment on above: Order Comment: Speci men Type: BLOOD SPECIMENOrdering Facility: [facility] Address: [address] [place] [address] Performed By: #### 5 7021-8 ####[facility] LABORATORYCLIA [id number] [address] Monocytes/100 WBC (Bld) 6.9 % Normal [facility] Comment on above: Order Comment: Speci men Type: BLOOD SPECIMENOrdering Facility: [facility] Address: [address] [address] Performed By: #### 5 7021-8 ####[facility]ATORYCLIA [id number] [address] [place] Neutrophils (Bld) [#/Vol] 6.62 10*3/uL Normal 1.45-7.50 [facility] Comment on above: Order Comment: Speci men Type: BLOOD SPECIMENOrdering Facility: [facility] Address: [address] [place] [address] Performed By: #### 5 7021-8 ####[facility]ORATORYCLIA [id number] [address] [place] Neutrophils/100 WBC (Bld) 74.7 % Normal [facility] Comment on above: Order Comment: Speci men Type: BLOOD SPECIMENOrdering Facility: [facility] Address: [address] [place] [address] Performed By: #### 5 7021-8 ####[facility]ORATORYCLIA [id number] [address] [place] Nucleated RBC (Bld) [#/Vol] 10*3/uL Normal <0.01 [facility] Comment on above: Order Comment: Speci men Type: BLOOD SPECIMENOrdering Facility: [facility] Address: [address] [address] Performed By: #### 5 7021-8 ####[facility]ORATORYCLIA [id number] [address] [place] Nucleated RBC/100 WBC (Bld) [Ratio] 0.0 /100 WBC Normal [facility] Comment on above: Order Comment: Speci men Type: BLOOD SPECIMENOrdering Facility: [facility] Address: [address] [address] Performed By: #### 5 7021-8 ####[facility]ORATORYCLIA [id number] [address] [place] OF [facility] Platelet mean volume (Bld) [Entitic vol] 9.8 fL Normal 9.0-12.7 [facility] Comment on above: Order Comment: Speci men Type: BLOOD SPECIMENOrdering Facility: [facility] Address: [address] [place] [address] Performed By: #### 5 7021-8 ####[facility] LABORATORYCLIA [id number] [address] [place] Platelets (Bld) [#/Vol] 157 10*3/uL Normal 150-400 [facility] Comment on above: Order Comment: Speci men Type: BLOOD SPECIMENOrdering Facility: [facility] Address: [address] [place] [address] Performed By: #### 5 7021-8 ####[facility] LABORATORYCLIA [id number] [address] RBC (Bld) [#/Vol] 2.89 10*6/uL Low 4.20-6.00 [facility] Comment on above: Order Comment: Speci men Type: BLOOD SPECIMENOrdering Facility: [facility] Address: [address] [place] [address] Performed By: #### 5 7021-8 ####[facility] LABORATORYCLIA [id number] [address] [place] WBC (Bld) [#/Vol] 8.86 10*3/uL Normal 3.70-11.00 [facility] Comment on above: Order Comment: Speci men Type: BLOOD SPECIMENOrdering Facility: [facility] Address: [address] [place] [address] Performed By: #### 5 7021-8 ####[facility] LABORATORYCLIA [id number] [address] CBC panel Auto (Bld)on 08-11 Erythrocyte distribution width (RBC) [Ratio] 17.2 % High 11.5-15.0 [facility] Comment on above: Order Comment: Speci men Type: BLOOD SPECIMENOrdering Facility: [facility] Address: [address] [place] [address] Performed By: #### 5 8410-2 ####[facility] LABORATORYCLIA [id number] [address] [facility] Hematocrit (Bld) [Volume fraction] 27.0 % Low 39.0-51.0 [facility] Comment on above: Order Comment: Speci men Type: BLOOD SPECIMENOrdering Facility: [facility] Address: [address] [place] [address] Performed By: #### 5 8410-2 ####[facility] LABORATORYCLIA [id number] [address] [facility] Hemoglobin (Bld) [Mass/Vol] 8.3 g/dL Low 13.0-17.0 [facility] Comment on above: Order Comment: Speci men Type: BLOOD SPECIMENOrdering Facility: [facility] Address: [address] [place] [address] Performed By: #### 5 8410-2 ####[facility] LABORATORYCLIA [id number] [address] [facility] MCH (RBC) [Entitic mass] 28.7 pg Normal 26.0-34.0 [facility] Comment on above: Order Comment: Speci men Type: BLOOD SPECIMENOrdering Facility: [facility] Address: [address] [place] [address] Performed By: #### 5 8410-2 ####[facility] LABORATORYCLIA [id number] [address] [place] MCHC (RBC) [Mass/Vol] 30.7 g/dL Normal 30.5-36.0 [facility] Comment on above: Order Comment: Speci men Type: BLOOD SPECIMENOrdering Facility: [facility] Address: [address] [place] [address] Performed By: #### 5 8410-2 ####[facility] LABORATORYCLIA [id number] [address] [place] OF [facility] MCV (RBC) [Entitic vol] 93.4 fL Normal 80.0-100.0 [facility] Comment on above: Order Comment: Speci men Type: BLOOD SPECIMENOrdering Facility: [facility] Address: [address] [place] [address] Performed By: #### 5 8410-2 ####[facility] LABORATORYCLIA [id number] [address] Nucleated RBC (Bld) [#/Vol] 10*3/uL Normal <0.01 [facility] Comment on above: Order Comment: Speci men Type: BLOOD SPECIMENOrdering Facility: [facility] Address: [address] [place] [address] Performed By: #### 5 8410-2 ####[facility] LABORATORYCLIA [id number] [address] Platelet mean volume (Bld) [Entitic vol] 9.8 fL Normal 9.0-12.7 [facility] Comment on above: Order Comment: Speci men Type: BLOOD SPECIMENOrdering Facility: [facility] Address: [address] [place] [address] Performed By: #### 5 8410-2 ####[facility] LABORATORYCLIA [id number] [address] Platelets (Bld) [#/Vol] 169 10*3/uL Normal 150-400 [facility] Comment on above: Order Comment: Speci men Type: BLOOD SPECIMENOrdering Facility: [facility] Address: [address] [place] [address] Performed By: #### 5 8410-2 ####[facility] LABORATORYCLIA [id number] [address] [place] RBC (Bld) [#/Vol] 2.89 10*6/uL Low 4.20-6.00 [facility] Comment on above: Order Comment: Speci men Type: BLOOD SPECIMENOrdering Facility: [facility] Address: [address] [place] [address] Performed By: #### 5 8410-2 ####[facility] LABORATORYCLIA [id number] [address] WBC (Bld) [#/Vol] 9.03 10*3/uL Normal 3.70-11.00 [facility] Comment on above: Order Comment: Shira francia Type: BLOOD SPECIMENOrdering Facility: [facility] Address: [address] [place] [address] Performed By: #### 5 8410-2 ####[facility] LABORATORYCLIA [id number] [address] BRAIN WO IVCONon 08-12-19 CT BRAIN WO IVCON Normal [facility] PT panel Coag (PPP)on 2021 INR Coag (PPP) [Relative time] 1.0 {INR} Normal 0.9-1.3 [facility] Comment on above: Order Comment: Shira francia Type: BLOOD SPECIMENOrdering Facility: [facility] Address: [address] [place] [address] Result Comment: Yris min K Antagonist (VKA) Therapeutic Range: INR 2 to 3 (Target INR of 2.5)Note: For patients treated with VKA drugs, such as warfarin, the [place] [employer] 2012 Guideline recommends [...] al. Chest 2012, 141:7S-47SNishimura RA, et al. JACC 2017, 70: 252-289 Performed By: #### 1 4979-9, 68073-3 ####[facility] LABORATORYCLIA [id number] [place], [place] [id number] [place] [address] [place] PT Coag (PPP) [Time] 11.4 s Normal 9.7-13.0 [facility] Comment on above: Order Comment: Speci men Type: BLOOD SPECIMENOrdering Facility: [facility] Address: [address] [place] [address] Performed By: #### 1 4979-9, 62763-4 ####[facility] LABORATORYCLIA [id number] [address] [facility] THERAPY NTon 08-11-2021 THERAPY NT Normal [facility] US DVT LOWER BILon 2 US DVT LOWER RAINER Normal [facility] US DVT UPPER BILon 2 US DVT UPPER RAINER Normal [facility] aPTT PPPon 08-11-2021 aPTT Coag (PPP) [Time] 26.9 s Normal 23.0-32.4 [facility] Comment on above: Order Comment: Speci men Type: BLOOD SPECIMENOrdering Facility: [facility] Address: [address] [place] [address] Performed By: #### 1 4979-9, 04234-1 ####[facility] LABORATORYCLIA [id number] [address] [place] [facility] Basic metabolic 2000 panelon 08-10-2021 Anion gap [Moles/Vol] 11 mmol/L Normal 9-18 [facility] Comment on above: Order Comment: Speci men Type: BLOOD SPECIMENOrdering Facility: [facility] Address: [address] [place] [address] Performed By: #### 2 4321-2 ####[facility] LABORATORYCLIA [id number] [address] [place] [facility] Calcium [Mass/Vol] 8.7 mg/dL Normal 8.5-10.2 [facility] Comment on above: Order Comment: Speci men Type: BLOOD SPECIMENOrdering Facility: [facility] Address: [address] [place] [address] Performed By: #### 2 4321-2 ####[facility] LABORATORYCLIA [id number] [place] [address] [place] Chloride [Moles/Vol] 98 mmol/L Normal 97-105 [facility] Comment on above: Order Comment: Speci men Type: BLOOD SPECIMENOrdering Facility: [facility] Address: [address] [place] [address] Performed By: #### 2 4321-2 ####[facility] LABORATORYCLIA [id number] [address] [place] CO2 [Moles/Vol] 28 mmol/L Normal 22-30 [facility] Comment on above: Order Comment: Speci men Type: BLOOD SPECIMENOrdering Facility: [facility] Address: [address] [place] [address] Performed By: #### 2 4321-2 ####[facility] LABORATORYCLIA [id number] [address] [place] Creatinine [Mass/Vol] 0.59 mg/dL Low 0.73-1.22 [facility] Comment on above: Order Comment: Speci men Type: BLOOD SPECIMENOrdering Facility: [facility] Address: [address] [place] [address] Performed By: #### 2 4321-2 ####[facility] LABORATORYCLIA [id number] [address] ESTIMATED GLOMERULAR FILTRATION RATE 105 mL/min/1.73m??? Normal >=60 [facility] Comment on above: Order Comment: Speci men Type: BLOOD SPECIMENOrdering Facility: [facility] Address: [address] [place] [address] Result Comment: Luzmaria mated Glomerular Filtration Rate [...] actual GFR. Performed By: #### 2 4321-2 ####[facility] LABORATORYCLIA [id number] [place] [address] [place] Glucose [Mass/Vol] 118 mg/dL High 74-99 [facility] Comment on above: Order Comment: Shira feldman Type: BLOOD SPECIMENOrdering Facility: [facility] Address: [address] [address] Result Comment: The [place] Diabetes Association (ADA) provides guidance for cutoff [...] Standards of Medical Care in Diabetes 2016, [place] Diabetes Association. Diabetes Care. 2016.39(Suppl 1). Performed By: #### 2 4321-2 ####[facility] LABORATORYCLIA [id number] [place] [address] [place] Potassium [Moles/Vol] 3.7 mmol/L Normal 3.7-5.1 [facility] Comment on above: Order Comment: Shira feldman Type: BLOOD SPECIMENOrdering Facility: [facility] Address: [address] [address] Performed By: #### 2 4321-2 ####[facility] LABORATORYCLIA [id number] [place] [address] [place] Sodium [Moles/Vol] 137 mmol/L Normal 136-144 [facility] Comment on above: Order Comment: Shira feldman Type: BLOOD SPECIMENOrdering Facility: [facility] Address: [address] [address] Performed By: #### 2 4321-2 ####[facility] LABORATORYCLIA [id number] [place] [address] [place] Urea nitrogen [Mass/Vol] 23 mg/dL Normal 9-24 [facility] Comment on above: Order Comment: Speci men Type: BLOOD SPECIMENOrdering Facility: [facility] Address: [address] [place] [address] Performed By: #### 2 4321-2 ####[facility] LABORATORYCLIA [id number] [place] [address] [place] Anion gap [Moles/Vol] 17 mmol/L Normal 9-18 [facility] Comment on above: Order Comment: Speci men Type: BLOOD SPECIMENOrdering Facility: [facility] Address: [address] [place] [address] Performed By: #### 1 9123-9, 2777, 32296-7 ####[facility] LABORATORYCLIA [id number] [place] [address] [place] Calcium [Mass/Vol] 7.7 mg/dL Low 8.5-10.2 [facility] Comment on above: Order Comment: Speci men Type: BLOOD SPECIMENOrdering Facility: [facility] Address: [address] [place] [address] Performed By: #### 1 9123-9, 2777, 89407-6 ####[facility] LABORATORYCLIA [id number] [place] [address] [place] Chloride [Moles/Vol] 86 mmol/L Low 97-105 [facility] Comment on above: Order Comment: Speci men Type: BLOOD SPECIMENOrdering Facility: [facility] Address: [address] [place] [address] Performed By: #### 1 9123-9, 2777, 21620-1 ####[facility] LABORATORYCLIA [id number] [place] [address] [place] CO2 [Moles/Vol] 24 mmol/L Normal 22-30 [facility] Comment on above: Order Comment: Speci men Type: BLOOD SPECIMENOrdering Facility: [facility] Address: [address] [place] [address] Performed By: #### 1 9123-9, 27711-04, 53848-6 ####[facility] LABORATORYCLIA [id number] [place] [address] [place] Creatinine [Mass/Vol] 0.53 mg/dL Low 0.73-1.22 [facility] Comment on above: Order Comment: Speci men Type: BLOOD SPECIMENOrdering Facility: [facility] Address: [address] [place] [address] Performed By: #### 1 9123-9, 2776-05, ####[facility] CARMELCLIA [id number] [address] [place] ESTIMATED GLOMERULAR FILTRATION RATE 108 mL/min/1.73m??? Normal >=60 [facility] Comment on above: Order Comment: Speci men Type: BLOOD SPECIMENOrdering Facility: [facility] Address: [address] [place] [address] Result Comment: Luzmaria mated Glomerular Filtration Rate [...] GFR. Performed By: #### 1 9123-9, 27711-04, 76112-8 ####[facility] LABORATORYCLIA [id number] [place] [address] [place] Glucose [Mass/Vol] 455 mg/dL High 74-99 [facility] Comment on above: Order Comment: Speci men Type: BLOOD SPECIMENOrdering Facility: [facility] Address: [address] [place] [address] Result Comment: The [place] Diabetes Association (ADA) provides guidance for cutoff [...] Standards of Medical Care in Diabetes 2016, [place] Diabetes Association. Diabetes Care. 2016.39(Suppl 1). Performed By: #### 1 9123-9, 2777-, 46410-1 ####[facility] LABORATORYCLIA [id number] [place] [address] [place] Potassium [Moles/Vol] 3.4 mmol/L Low 3.7-5.1 [facility] Comment on above: Order Comment: Shira feldman Type: BLOOD SPECIMENOrdering Facility: [facility] Address: [address] [place] [address] Performed By: #### 1 9123-9, 2777, 58458-1 ####[facility] LABORATORYCLIA [id number] [place] [address] [place] Sodium [Moles/Vol] 127 mmol/L Low 136-144 [facility] Comment on above: Order Comment: Shira feldman Type: BLOOD SPECIMENOrdering Facility: [facility] Address: [address] [place] [address] Performed By: #### 1 9123-9, 2777, 30569-4 ####[facility] LABORATORYCLIA [id number] [place] [address] [place] Urea nitrogen [Mass/Vol] 21 mg/dL Normal 9-24 [facility] Comment on above: Order Comment: Shira feldman Type: BLOOD SPECIMENOrdering Facility: [facility] Address: [address] [address] Performed By: #### 1 9123-9, 2777, 91103-2 ####[facility] LABORATORYCLIA [id number] [place] [address] [place] CASE MANAGEMon 08-10-2021 CASE MANAGEM Normal [facility] CBC W Auto Differential pane l (Bld)on 08-10-2021 Basophils (Bld) [#/Vol] 0.04 10*3/uL Normal <0.11 [facility] Comment on above: Order Comment: Speci men Type: BLOOD SPECIMENOrdering Facility: [facility] Address: [address] [place] [address] Performed By: #### 5 7021-8 ####[facility] LABORATORYCLIA [id number] [address] Basophils/100 WBC (Bld) 0.4 % Normal [facility] Comment on above: Order Comment: Speci men Type: BLOOD SPECIMENOrdering Facility: [facility] Address: [address] [place] [address] Performed By: #### 5 7021-8 ####[facility] LABORATORYCLIA [id number] [address] [place] Differential cell count method Nom (Bld) Auto Normal [facility] Comment on above: Order Comment: Speci men Type: BLOOD SPECIMENOrdering Facility: [facility] Address: [address] [place] [address] Performed By: #### 5 7021-8 ####[facility] LABORATORYCLIA [id number] [place] [address] [place] Eosinophils (Bld) [#/Vol] 0.11 10*3/uL Normal <0.46 [facility] Comment on above: Order Comment: Speci men Type: BLOOD SPECIMENOrdering Facility: [facility] Address: [address] [place] [address] Performed By: #### 5 7021-8 ####[facility] LABORATORYCLIA [id number] [address] [place] Eosinophils/100 WBC (Bld) 1.1 % Normal [facility] Comment on above: Order Comment: Speci men Type: BLOOD SPECIMENOrdering Facility: [facility] Address: [address] [place] [address] Performed By: #### 5 7021-8 ####[facility] LABORATORYCLIA [id number] [address] Erythrocyte distribution width (RBC) [Ratio] 17.2 % High 11.5-15.0 [facility] Comment on above: Order Comment: Speci men Type: BLOOD SPECIMENOrdering Facility: [facility] Address: [address] [place] [address] Performed By: #### 5 7021-8 ####[facility] LABORATORYCLIA [id number] [address] Hematocrit (Bld) [Volume fraction] 25.5 % Low 39.0-51.0 [facility] Comment on above: Order Comment: Speci men Type: BLOOD SPECIMENOrdering Facility: [facility] Address: [address] [place] [address] Performed By: #### 5 7021-8 ####[facility] LABORATORYCLIA [id number] [address] Hemoglobin (Bld) [Mass/Vol] 7.9 g/dL Low 13.0-17.0 [facility] Comment on above: Order Comment: Speci men Type: BLOOD SPECIMENOrdering Facility: [facility] Address: [address] [place] [address] Performed By: #### 5 7021-8 ####[facility] LABORATORYCLIA [id number] [address] IMMATURE GRAN % 0.4 % Normal [facility] Comment on above: Order Comment: Speci men Type: BLOOD SPECIMENOrdering Facility: [facility] Address: [address] [place] [address] Performed By: #### 5 7021-8 ####[facility] LABORATORYCLIA [id number] [address] IMMATURE GRAN ABS 0.04 k/uL Normal <0.10 [facility] Comment on above: Order Comment: Speci men Type: BLOOD SPECIMENOrdering Facility: [facility] Address: [address] [place] [address] Performed By: #### 5 7021-8 ####[facility] LABORATORYCLIA [id number] [address] Lymphocytes (Bld) [#/Vol] 1.66 10*3/uL Normal 1.00-4.00 [facility] Comment on above: Order Comment: Speci men Type: BLOOD SPECIMENOrdering Facility: [facility] Address: [address] [place] [address] Performed By: #### 5 7021-8 ####[facility] LABORATORYCLIA [id number] [address] Lymphocytes/100 WBC (Bld) 16.2 % Normal [facility] Comment on above: Order Comment: Speci men Type: BLOOD SPECIMENOrdering Facility: [facility] Address: [address] [place] [address] Performed By: #### 5 7021-8 ####[facility] LABORATORYCLIA [id number] [address] MCH (RBC) [Entitic mass] 28.5 pg Normal 26.0-34.0 [facility] Comment on above: Order Comment: Speci men Type: BLOOD SPECIMENOrdering Facility: [facility] Address: [address] [place] [address] Performed By: #### 5 7021-8 ####[facility] LABORATORYCLIA [id number] [address] MCHC (RBC) [Mass/Vol] 31.0 g/dL Normal 30.5-36.0 [facility] Comment on above: Order Comment: Speci men Type: BLOOD SPECIMENOrdering Facility: [facility] Address: [address] [place] [address] Performed By: #### 5 7021-8 ####[facility] LABORATORYCLIA [id number] [address] [place] MCV (RBC) [Entitic vol] 92.1 fL Normal 80.0-100.0 [facility] Comment on above: Order Comment: Speci men Type: BLOOD SPECIMENOrdering Facility: [facility] Address: [address] [place] [address] Performed By: #### 5 7021-8 ####[facility] LABORATORYCLIA [id number] [address] [place] Monocytes (Bld) [#/Vol] 0.51 10*3/uL Normal <0.87 [facility] Comment on above: Order Comment: Speci men Type: BLOOD SPECIMENOrdering Facility: [facility] Address: [address] [place] [address] Performed By: #### 5 7021-8 ####[facility] LABORATORYCLIA [id number] [address] Monocytes/100 WBC (Bld) 5.0 % Normal [facility] Comment on above: Order Comment: Speci men Type: BLOOD SPECIMENOrdering Facility: [facility] Address: [address] [place] [address] Performed By: #### 5 7021-8 ####[facility] LABORATORYCLIA [id number] [address] [place] Neutrophils (Bld) [#/Vol] 7.91 10*3/uL High 1.45-7.50 [facility] Comment on above: Order Comment: Speci men Type: BLOOD SPECIMENOrdering Facility: [facility] Address: [address] [place] [address] Performed By: #### 5 7021-8 ####[facility] LABORATORYCLIA [id number] [address] [place] Neutrophils/100 WBC (Bld) 76.9 % Normal [facility] Comment on above: Order Comment: Speci men Type: BLOOD SPECIMENOrdering Facility: [facility] Address: [address] Performed By: #### 5 7021-8 ####[facility] LABORATORYCLIA [id number] [address] Nucleated RBC (Bld) [#/Vol] 10*3/uL Normal <0.01 [facility] Comment on above: Order Comment: Speci men Type: BLOOD SPECIMENOrdering Facility: [facility] Address: [address] [address] Performed By: #### 5 7021-8 ####[facility] LABORATORYCLIA [id number] [address] Nucleated RBC/100 WBC (Bld) [Ratio] 0.0 /100 WBC Normal [facility] Comment on above: Order Comment: Speci men Type: BLOOD SPECIMENOrdering Facility: [facility] Address: [address] [place] [address] Performed By: #### 5 7021-8 ####[facility] LABORATORYCLIA [id number] [address] STATES [facility] Platelet mean volume (Bld) [Entitic vol] 10.3 fL Normal 9.0-12.7 [facility] Comment on above: Order Comment: Speci men Type: BLOOD SPECIMENOrdering Facility: [facility] Address: [address] Performed By: #### 5 7021-8 ####[facility] LABORATORYCLIA [id number] [address] Platelets (Bld) [#/Vol] 152 10*3/uL Normal 150-400 [facility] Comment on above: Order Comment: Speci men Type: BLOOD SPECIMENOrdering Facility: [facility] Address: [address] [place] [address] Performed By: #### 5 7021-8 ####[facility] LABORATORYCLIA [id number] [address] [place] RBC (Bld) [#/Vol] 2.77 10*6/uL Low 4.20-6.00 [facility] Comment on above: Order Comment: Speci men Type: BLOOD SPECIMENOrdering Facility: [facility] Address: [address] [place] [address] Performed By: #### 5 7021-8 ####[facility] LABORATORYCLIA [id number] [address] [facility] WBC (Bld) [#/Vol] 10.27 10*3/uL Normal 3.70-11.00 [facility] Comment on above: Order Comment: Speci men Type: BLOOD SPECIMENOrdering Facility: [facility] Address: [address] [place] [address] Performed By: #### 5 7021-8 ####[facility] LABORATORYCLIA [id number] [address] Magnesium SerPl-mCncon 08-10 Magnesium [Mass/Vol] 1.8 mg/dL Normal 1.7-2.3 [facility] Comment on above: Order Comment: Speci men Type: BLOOD SPECIMENOrdering Facility: [facility] Address: [address] [place] [address] Performed By: #### 1 9123-9, 2777-1, 79998-7 ####[facility] LABORATORYCLIA [id number] [address] [place] NURSING PROGon 08-10-2021 NURSING PROG Normal [facility] NURSING PROG Normal [facility] NUTRITIONon 08-10-2021 NUTRITION Normal [facility] Phosphate SerPl-mCncon 08-10 Phosphate [Mass/Vol] 3.7 mg/dL Normal 2.7-4.8 [facility] Comment on above: Order Comment: Speci men Type: BLOOD SPECIMENOrdering Facility: [facility] Address: [address] [place] [address] Performed By: #### 1 9123-9, 2777-1, 40415-5 ####[facility] LABORATORYCLIA [id number] [place] [address] [place] ALLIED HEALTHon 08-09-2021 ALLIED HEALTH Normal [facility] ANES POSTPROC EVALon 022 ANES POSTPROC EVAL Normal [facility] ANES PRE-OPon 08-09-2021 ANES PRE-OP Normal [facility] BRIEF OP NOTon 08-09-2021 BRIEF OP NOT Normal [facility] Basic metabolic 2000 panelon 08-09-2021 Anion gap [Moles/Vol] 8 mmol/L Low 9-18 [facility] Comment on above: Order Comment: Speci men Type: BLOOD SPECIMENOrdering Facility: [facility] Address: [address] [place] [address] Performed By: #### 2 4321-2, , 2776-05 ####[facility] LABORATORYCLIA [id number] [place] [address] [place] Calcium [Mass/Vol] 9.2 mg/dL Normal 8.5-10.2 [facility] Comment on above: Order Comment: Speci men Type: BLOOD SPECIMENOrdering Facility: [facility] Address: [address] [place] [address] Performed By: #### 2 4321-2, , 2776-05 ####[facility] LABORATORYCLIA [id number] [place] [address] [place] Chloride [Moles/Vol] 97 mmol/L Normal 97-105 [facility] Comment on above: Order Comment: Speci men Type: BLOOD SPECIMENOrdering Facility: [facility] Address: [address] [place] [address] Performed By: #### 2 4321-2, , 2776-05 ####[facility] LABORATORYCLIA [id number] [place] [address] [place] CO2 [Moles/Vol] 30 mmol/L Normal 22-30 [facility] Comment on above: Order Comment: Speci men Type: BLOOD SPECIMENOrdering Facility: [facility] Address: [address] [place] [address] Performed By: #### 2 4321-2, , 2776-05 ####[facility]ITAL[facility] [id number] [place] [address] [place] Creatinine [Mass/Vol] 0.51 mg/dL Low 0.73-1.22 [facility] Comment on above: Order Comment: Speci men Type: BLOOD SPECIMENOrdering Facility: [facility] Address: [address] [place] [address] Performed By: #### 2 4321-2, , 2776-05 ####[facility]ITALIA [id number] [address] [place] ESTIMATED GLOMERULAR FILTRATION RATE 110 mL/min/1.73m??? Normal >=60 [facility] Comment on above: Order Comment: Speci men Type: BLOOD SPECIMENOrdering Facility: [facility] Address: [address] [place] [address] Result Comment: Luzmaria mated Glomerular Filtration Rate [...] Performed By: #### 2 4321-2, , 2776-05 ####[facility] LABORATORYIA [id number] [place] [address] [place] Glucose [Mass/Vol] 106 mg/dL High 74-99 [facility] Comment on above: Order Comment: Speci men Type: BLOOD SPECIMENOrdering Facility: [facility] Address: [address] [place] [address] Result Comment: The [place] Diabetes Association (ADA) provides guidance for cutoff [...] Standards of Medical Care in Diabetes 2016, [place] Diabetes Association. Diabetes Care. 2016.39(Suppl 1). Performed By: #### 2 4321-2, , 2776-05 ####[facility] LABORATORYCLIA [id number] [place] [address] [place] Potassium [Moles/Vol] 4.1 mmol/L Normal 3.7-5.1 [facility] Comment on above: Order Comment: Shira feldman Type: BLOOD SPECIMENOrdering Facility: [facility] Address: [address] [place] [address] Performed By: #### 2 4320-2, , 2776-05 ####[facility] [id number] [place] [address] [place] Sodium [Moles/Vol] 135 mmol/L Low 136-144 [facility] Comment on above: Order Comment: Shira feldman Type: BLOOD SPECIMENOrdering Facility: [facility] Address: [address] [place] [address] Performed By: #### 2 4321-2, , 2776-05 ####[facility] LABORATORYCLIA [id number] [place] [address] [place] Urea nitrogen [Mass/Vol] 26 mg/dL High 9-24 [facility] Comment on above: Order Comment: Shira feldman Type: BLOOD SPECIMENOrdering Facility: [facility] Address: [address] [place] [address] Performed By: #### 2 4321-2, , 2776-05 ####[facility] LABORATORYCLIA [id number] [address] OF [facility] CBC W Auto Differential pane l (Bld)on 08-09-2021 Basophils (Bld) [#/Vol] 0.06 10*3/uL Normal <0.11 [facility] Comment on above: Order Comment: Speci men Type: BLOOD SPECIMENOrdering Facility: [facility] Address: [address] [place] [address] Performed By: #### 5 7021-8 ####[facility] LABORATORYCLIA [id number] [address] STATES [facility] Basophils/100 WBC (Bld) 0.5 % Normal [facility] Comment on above: Order Comment: Speci men Type: BLOOD SPECIMENOrdering Facility: [facility] Address: [address] [place] [address] Performed By: #### 5 7021-8 ####[facility] LABORATORYCLIA [id number] [address] Differential cell count method Nom (Bld) Auto Normal [facility] Comment on above: Order Comment: Speci men Type: BLOOD SPECIMENOrdering Facility: [facility] Address: [address] [place] [address] Performed By: #### 5 7021-8 ####[facility] LABORATORYCLIA [id number] [address] [place] Eosinophils (Bld) [#/Vol] 0.42 10*3/uL Normal <0.46 [facility] Comment on above: Order Comment: Speci men Type: BLOOD SPECIMENOrdering Facility: [facility] Address: [address] [place] [address] Performed By: #### 5 7021-8 ####[facility] LABORATORYCLIA [id number] [address] Eosinophils/100 WBC (Bld) 3.8 % Normal [facility] Comment on above: Order Comment: Speci men Type: BLOOD SPECIMENOrdering Facility: [facility] Address: [address] [place], [place] [address] Performed By: #### 5 7021-8 ####[facility] LABORATORYCLIA [id number] [address] Erythrocyte distribution width (RBC) [Ratio] 17.6 % High 11.5-15.0 [facility] Comment on above: Order Comment: Speci men Type: BLOOD SPECIMENOrdering Facility: [facility] Address: [address] [place] [address] Performed By: #### 5 7021-8 ####[facility] LABORATORYCLIA [id number] [address] Hematocrit (Bld) [Volume fraction] 29.3 % Low 39.0-51.0 [facility] Comment on above: Order Comment: Speci men Type: BLOOD SPECIMENOrdering Facility: [facility] Address: [address] [place] [address] Performed By: #### 5 7021-8 ####[facility] LABORATORYCLIA [id number] [address] Hemoglobin (Bld) [Mass/Vol] 9.0 g/dL Low 13.0-17.0 [facility] Comment on above: Order Comment: Speci men Type: BLOOD SPECIMENOrdering Facility: [facility] Address: [address] [place] [address] Performed By: #### 5 7021-8 ####[facility] LABORATORYCLIA [id number] [address] IMMATURE GRAN % 0.5 % Normal [facility] Comment on above: Order Comment: Speci men Type: BLOOD SPECIMENOrdering Facility: [facility] Address: [address] [place] [address] Performed By: #### 5 7021-8 ####[facility] LABORATORYCLIA [id number] [address] IMMATURE GRAN ABS 0.05 k/uL Normal <0.10 [facility] Comment on above: Order Comment: Speci men Type: BLOOD SPECIMENOrdering Facility: [facility] Address: [address] [place] [address] Performed By: #### 5 7021-8 ####[facility] LABORATORYCLIA [id number] [address] Lymphocytes (Bld) [#/Vol] 2.00 10*3/uL Normal 1.00-4.00 [facility] Comment on above: Order Comment: Speci men Type: BLOOD SPECIMENOrdering Facility: [facility] Address: [address] [place] [address] Performed By: #### 5 7021-8 ####[facility] LABORATORYCLIA [id number] [address] Lymphocytes/100 WBC (Bld) 18.1 % Normal [facility] Comment on above: Order Comment: Speci men Type: BLOOD SPECIMENOrdering Facility: [facility] Address: [address] [place] [address] Performed By: #### 5 7021-8 ####[facility] LABORATORYCLIA [id number] [address] MCH (RBC) [Entitic mass] 28.1 pg Normal 26.0-34.0 [facility] Comment on above: Order Comment: Speci men Type: BLOOD SPECIMENOrdering Facility: [facility] Address: [address] [place] [address] Performed By: #### 5 7021-8 ####[facility] LABORATORYCLIA [id number] [address] STATES [facility] MCHC (RBC) [Mass/Vol] 30.7 g/dL Normal 30.5-36.0 [facility] Comment on above: Order Comment: Speci men Type: BLOOD SPECIMENOrdering Facility: [facility] Address: [address] [place] [address] Performed By: #### 5 7021-8 ####[facility] LABORATORYCLIA [id number] [place] [address] [place] MCV (RBC) [Entitic vol] 91.6 fL Normal 80.0-100.0 [facility] Comment on above: Order Comment: Speci men Type: BLOOD SPECIMENOrdering Facility: [facility] Address: [address] [place] [address] Performed By: #### 5 7021-8 ####[facility] LABORATORYCLIA [id number] [place] [address] [place] Monocytes (Bld) [#/Vol] 0.68 10*3/uL Normal <0.87 [facility] Comment on above: Order Comment: Speci men Type: BLOOD SPECIMENOrdering Facility: [facility] Address: [address] [place] [address] Performed By: #### 5 7021-8 ####[facility] LABORATORYCLIA [id number] [address] Monocytes/100 WBC (Bld) 6.2 % Normal [facility] Comment on above: Order Comment: Speci men Type: BLOOD SPECIMENOrdering Facility: [facility] Address: [address] [place] [address] Performed By: #### 5 7021-8 ####[facility] LABORATORYCLIA [id number] [address] [place] Neutrophils (Bld) [#/Vol] 7.82 10*3/uL High 1.45-7.50 [facility] Comment on above: Order Comment: Speci men Type: BLOOD SPECIMENOrdering Facility: [facility] Address: [address] [place] [address] Performed By: #### 5 7021-8 ####[facility] LABORATORYCLIA [id number] [address] [place] Neutrophils/100 WBC (Bld) 70.9 % Normal [facility] Comment on above: Order Comment: Speci men Type: BLOOD SPECIMENOrdering Facility: [facility] Address: [address] [place] [address] Performed By: #### 5 7021-8 ####[facility]ORATORYCLIA [id number] [address] [place] Nucleated RBC (Bld) [#/Vol] 10*3/uL Normal <0.01 [facility] Comment on above: Order Comment: Speci men Type: BLOOD SPECIMENOrdering Facility: [facility] Address: [address] [place] [address] Performed By: #### 5 7021-8 ####[facility] LABORATORYCLIA [id number] [address] [place] Nucleated RBC/100 WBC (Bld) [Ratio] 0.0 /100 WBC Normal [facility] Comment on above: Order Comment: Speci men Type: BLOOD SPECIMENOrdering Facility: [facility] Address: [address] [place] [address] Performed By: #### 5 7021-8 ####[facility] LABORATORYCLIA [id number] [address] Platelet mean volume (Bld) [Entitic vol] 10.1 fL Normal 9.0-12.7 [facility] Comment on above: Order Comment: Speci men Type: BLOOD SPECIMENOrdering Facility: [facility] Address: [address] [place] [address] Performed By: #### 5 7021-8 ####[facility] LABORATORYCLIA [id number] [address] [place] Platelets (Bld) [#/Vol] 160 10*3/uL Normal 150-400 [facility] Comment on above: Order Comment: Speci men Type: BLOOD SPECIMENOrdering Facility: [facility] Address: [address] [place] [address] Performed By: #### 5 7021-8 ####[facility] LABORATORYCLIA [id number] [address] [place] RBC (Bld) [#/Vol] 3.20 10*6/uL Low 4.20-6.00 [facility] Comment on above: Order Comment: Speci men Type: BLOOD SPECIMENOrdering Facility: [facility] Address: [address] [place] [address] Performed By: #### 5 7021-8 ####[facility] LABORATORYCLIA [id number] [place] [address] [place] WBC (Bld) [#/Vol] 11.03 10*3/uL High 3.70-11.00 [facility] Comment on above: Order Comment: Speci men Type: BLOOD SPECIMENOrdering Facility: [facility] Address: [address] [place] [address] Performed By: #### 5 7021-8 ####[facility] LABORATORYCLIA [id number] [address] [place] CONSULT PROGon 08-09-2021 CONSULT PROG Normal [facility] CT BRAIN WO IVCONon 08-10-19 CT BRAIN WO IVCON Normal [facility] CT BRAIN WO IVCON Normal [facility] Magnesium SerPl-mCncon 08-09 Magnesium [Mass/Vol] 2.0 mg/dL Normal 1.7-2.3 [facility] Comment on above: Order Comment: Speci men Type: BLOOD SPECIMENOrdering Facility: [facility] Address: [address] [place] [address] Performed By: #### 2 4321-2, 87599-3, 2777-1 ####[facility] LABORATORYCLIA [id number] [address] [place] NURSING PROGon 08-09-2021 NURSING PROG Normal [facility] OPERATIVE NOon 08-09-2021 OPERATIVE NO Normal [facility] PT panel Coag (PPP)on 2021 INR Coag (PPP) [Relative time] 1.1 {INR} Normal 0.9-1.3 [facility] Comment on above: Order Comment: Speci men Type: BLOOD SPECIMENOrdering Facility: [facility] Address: [address] [place] [address] Result Comment: Yris min K Antagonist (VKA) Therapeutic Range: INR 2 to 3 (Target INR of 2.5)Note: For patients treated with VKA drugs, such as warfarin, the [place] [employer] Chest Physicians 2012 Guideline recommends [...] al. Chest 2012, 141:7S-47SNishmariangel RA, et al. [facility] 2017, 70: 252-289 Performed By: #### 3 4528-0, 32068-5 ####[facility] LABORATORYCLIA [id number] [address] PT Coag (PPP) [Time] 11.7 s Normal 9.7-13.0 [facility] Comment on above: Order Comment: Shira feldman Type: BLOOD SPECIMENOrdering Facility: [facility] Address: [address] [place] [address] Performed By: #### 3 4528-0, 80724-3 ####[facility] LABORATORYCLIA [id number] [address] [place] Phosphate SerPl-mCncon 08-09 Phosphate [Mass/Vol] 4.0 mg/dL Normal 2.7-4.8 [facility] Comment on above: Order Comment: Shira feldman Type: BLOOD SPECIMENOrdering Facility: [facility] Address: [address] [place] [address] Performed By: #### 2 4321-2, 37636-3, 2777-1 ####[facility] LABORATORYCLIA [id number] [address] [place] THERAPY NTon 08-09-2021 THERAPY NT Normal [facility] THERAPY NT Normal [facility] TYPE AND SCREENon 08-09-2021 ABO O Normal [facility] Comment on above: Order Comment: Speci men Type: BLOOD SPECIMENOrdering Facility: [facility] Address: [address] [place] [address] Performed By: #### T SCR ####[facility] BLOOD BANKCLIA [id number] [address] HISTORICAL AB SCR STATUS Negative Normal [facility] Comment on above: Order Comment: Speci men Type: BLOOD SPECIMENOrdering Facility: [facility] Address: [address] [place] [address] Performed By: #### T SCR ####[facility] BLOOD BANKCLIA [id number] [address] [place] Rh Nom (Bld) Positive Normal [facility] Comment on above: Order Comment: Speci men Type: BLOOD SPECIMENOrdering Facility: [facility] Address: [address] [place] [address] Performed By: #### T SCR ####[facility] BLOOD BANKCLIA [id number] [address] TYPE AND SCREEN EXPIRATION 08/12/2021 23:59 Normal [facility] Comment on above: Order Comment: Speci men Type: BLOOD SPECIMENOrdering Facility: [facility] Address: [address] [place] [address] Performed By: #### T SCR ####[facility] BLOOD BANKCLIA [id number] [address] [place] XR ABD 2V SUPINE W UPR/DECUB /CTLon 08-09-2021 XR ABD 2V SUPINE W UPR/DECUB/CTL Normal [facility] XR CHEST 1V FRONTALon 2021 XR CHEST 1V FRONTAL Normal [facility] XR NECK SOFT TISSUE 2V AP/LA Ton 08-09-2021 XR NECK SOFT TISSUE 2V AP/LAT Normal [facility] XR SKULL 2V AP/LATon 022 XR SKULL 2V AP/LAT Normal [facility] aPTT PPPon 08-09-2021 aPTT Coag (PPP) [Time] 26.8 s Normal 23.0-32.4 [facility] Comment on above: Order Comment: Speci men Type: BLOOD SPECIMENOrdering Facility: [facility] Address: [address] [place] [address] Performed By: #### 3 4528-0, 90735-8 ####[facility] LABORATORYCLIA [id number] [address] [place] CASE MANAGEMon 08-08-2021 CASE MANAGEM Normal [facility] CBC W Auto Differential pane l (Bld)on 08-08-2021 Basophils (Bld) [#/Vol] 0.05 10*3/uL Normal <0.11 [facility] Comment on above: Order Comment: Speci men Type: BLOOD SPECIMENOrdering Facility: [facility] Address: [address] [place] [address] Performed By: #### 5 7021-8 ####[facility] LABORATORYCLIA [id number] [address] [place] Basophils/100 WBC (Bld) 0.5 % Normal [facility] Comment on above: Order Comment: Speci men Type: BLOOD SPECIMENOrdering Facility: [facility] Address: [address] [place] [address] Performed By: #### 5 7021-8 ####[facility] LABORATORYCLIA [id number] [address] [place] Differential cell count method Nom (Bld) Auto Normal [facility] Comment on above: Order Comment: Speci men Type: BLOOD SPECIMENOrdering Facility: [facility] Address: [address] [place] [address] Performed By: #### 5 7021-8 ####[facility] LABORATORYCLIA [id number] [place] [address] [place] Eosinophils (Bld) [#/Vol] 0.17 10*3/uL Normal <0.46 [facility] Comment on above: Order Comment: Speci men Type: BLOOD SPECIMENOrdering Facility: [facility] Address: [address] [place] [address] Performed By: #### 5 7021-8 ####[facility] LABORATORYCLIA [id number] [address] Eosinophils/100 WBC (Bld) 1.6 % Normal [facility] Comment on above: Order Comment: Speci men Type: BLOOD SPECIMENOrdering Facility: [facility] Address: [address] [place] [address] Performed By: #### 5 7021-8 ####[facility] LABORATORYCLIA [id number] [address] OF [facility] Erythrocyte distribution width (RBC) [Ratio] 17.8 % High 11.5-15.0 [facility] Comment on above: Order Comment: Speci men Type: BLOOD SPECIMENOrdering Facility: [facility] Address: [address] [place] [address] Performed By: #### 5 7021-8 ####[facility] LABORATORYCLIA [id number] [address] Hematocrit (Bld) [Volume fraction] 29.6 % Low 39.0-51.0 [facility] Comment on above: Order Comment: Speci men Type: BLOOD SPECIMENOrdering Facility: [facility] Address: [address] [place] [address] Performed By: #### 5 7021-8 ####[facility] LABORATORYCLIA [id number] [address] [place] Hemoglobin (Bld) [Mass/Vol] 9.0 g/dL Low 13.0-17.0 [facility] Comment on above: Order Comment: Speci men Type: BLOOD SPECIMENOrdering Facility: [facility] Address: [address] [place] [address] Performed By: #### 5 7021-8 ####[facility]ORATORYCLIA [id number] [address] IMMATURE GRAN % 0.5 % Normal [facility] Comment on above: Order Comment: Speci men Type: BLOOD SPECIMENOrdering Facility: [facility] Address: [address] [place] [address] Performed By: #### 5 7021-8 ####[facility] LABORATORYCLIA [id number] [address] IMMATURE GRAN ABS 0.05 k/uL Normal <0.10 [facility] Comment on above: Order Comment: Speci men Type: BLOOD SPECIMENOrdering Facility: [facility] Address: [address] [place] [address] Performed By: #### 5 7021-8 ####[facility] LABORATORYCLIA [id number] [address] Lymphocytes (Bld) [#/Vol] 1.93 10*3/uL Normal 1.00-4.00 [facility] Comment on above: Order Comment: Speci men Type: BLOOD SPECIMENOrdering Facility: [facility] Address: [address] [place] [address] Performed By: #### 5 7021-8 ####[facility] LABORATORYCLIA [id number] [address] Lymphocytes/100 WBC (Bld) 18.2 % Normal [facility] Comment on above: Order Comment: Speci men Type: BLOOD SPECIMENOrdering Facility: [facility] Address: [address] [place] [address] Performed By: #### 5 7021-8 ####[facility]ORATORYCLIA [id number] [address] STATES [facility] MCH (RBC) [Entitic mass] 28.1 pg Normal 26.0-34.0 [facility] Comment on above: Order Comment: Speci men Type: BLOOD SPECIMENOrdering Facility: [facility] Address: [address] [place] [address] Performed By: #### 5 7021-8 ####[facility] LABORATORYCLIA [id number] [address] MCHC (RBC) [Mass/Vol] 30.4 g/dL Low 30.5-36.0 [facility] Comment on above: Order Comment: Speci men Type: BLOOD SPECIMENOrdering Facility: [facility] Address: [address] [place] [address] Performed By: #### 5 7021-8 ####[facility] LABORATORYCLIA [id number] [address] STATES [facility] MCV (RBC) [Entitic vol] 92.5 fL Normal 80.0-100.0 [facility] Comment on above: Order Comment: Speci men Type: BLOOD SPECIMENOrdering Facility: [facility] Address: [address] [place] [address] Performed By: #### 5 7021-8 ####[facility] LABORATORYCLIA [id number] [address] Monocytes (Bld) [#/Vol] 0.75 10*3/uL Normal <0.87 [facility] Comment on above: Order Comment: Speci men Type: BLOOD SPECIMENOrdering Facility: [facility] Address: [address] [place] [address] Performed By: #### 5 7021-8 ####[facility] HEALTH SERVICES LABORATORYCLIA [id number] [address] Monocytes/100 WBC (Bld) 7.1 % Normal [facility] Comment on above: Order Comment: Speci men Type: BLOOD SPECIMENOrdering Facility: [facility] Address: [address] [place] [address] Performed By: #### 5 7021-8 ####[facility] LABORATORYCLIA [id number] [address] [place] Neutrophils (Bld) [#/Vol] 7.65 10*3/uL High 1.45-7.50 [facility] Comment on above: Order Comment: Speci men Type: BLOOD SPECIMENOrdering Facility: [facility] Address: [address] [place] [address] Performed By: #### 5 7021-8 ####[facility] LABORATORYCLIA [id number] [address] Neutrophils/100 WBC (Bld) 72.1 % Normal [facility] Comment on above: Order Comment: Speci men Type: BLOOD SPECIMENOrdering Facility: [facility] Address: [address] [place] [address] Performed By: #### 5 7021-8 ####[facility] LABORATORYCLIA [id number] [address] Nucleated RBC (Bld) [#/Vol] 10*3/uL Normal <0.01 [facility] Comment on above: Order Comment: Speci men Type: BLOOD SPECIMENOrdering Facility: [facility] Address: [address] [place] [address] Performed By: #### 5 7021-8 ####[facility] LABORATORYCLIA [id number] [address] Nucleated RBC/100 WBC (Bld) [Ratio] 0.0 /100 WBC Normal [facility] Comment on above: Order Comment: Speci men Type: BLOOD SPECIMENOrdering Facility: [facility] Address: [address] [place] [address] Performed By: #### 5 7021-8 ####[facility] LABORATORYCLIA [id number] [address] [place] Platelet mean volume (Bld) [Entitic vol] 9.8 fL Normal 9.0-12.7 [facility] Comment on above: Order Comment: Speci men Type: BLOOD SPECIMENOrdering Facility: [facility] Address: [address] [place] [address] Performed By: #### 5 7021-8 ####[facility] LABORATORYCLIA [id number] [address] [facility] Platelets (Bld) [#/Vol] 175 10*3/uL Normal 150-400 [facility] Comment on above: Order Comment: Speci men Type: BLOOD SPECIMENOrdering Facility: [facility] Address: [address] [place] [address] Performed By: #### 5 7021-8 ####[facility] LABORATORYCLIA [id number] [place] [address] [place] RBC (Bld) [#/Vol] 3.20 10*6/uL Low 4.20-6.00 [facility] Comment on above: Order Comment: Speci men Type: BLOOD SPECIMENOrdering Facility: [facility] Address: [address] [place] [address] Performed By: #### 5 7021-8 ####[facility] LABORATORYCLIA [id number] [address] OF [facility] WBC (Bld) [#/Vol] 10.60 10*3/uL Normal 3.70-11.00 [facility] Comment on above: Order Comment: Speci men Type: BLOOD SPECIMENOrdering Facility: [facility] Address: [address] [place] [address] Performed By: #### 5 7021-8 ####[facility] LABORATORYCLIA [id number] [address] [place] BRAIN WO IVCONon 08-09-19 CT BRAIN WO IVCON Normal [facility] NURSING PROGon 08-08-2021 NURSING PROG Normal [facility] Prealbumin [Mass/Vol]on Prealbumin Nephelometry [Mass/Vol] 29 mg/dL Normal - [facility] Comment on above: Order Comment: Speci men Type: BLOOD SPECIMENOrdering Facility: [facility] Address: [address] [place] [address] Performed By: #### 1 4338-8 ####[facility] LABORATORYCLIA [id number] [address] [facility] SARS-CoV-2 RNA Resp Ql MEGAN+p robeon 08-08-2021 SARS-CoV-2 (COVID-19) RNA MEGAN+probe Ql (Resp) COVID 19 RESULT: SARS-CoV-2 (Agent of COVID-19) Not Detected by RT-PCR or equivalent method. This test has been authorized by FDA under an Emergency Use Authorization (EUA). Normal [facility] Comment on above: Performed By: #### 9 4500-6 ####[facility] LABORATORYCLIA [id number] [address] [place] ALLIED HEALTHon 08-07-2021 ALLIED HEALTH Normal [facility] Basic metabolic 2000 panelon 08-07-2021 Anion gap [Moles/Vol] 9 mmol/L Normal 9-18 [facility] Comment on above: Order Comment: Speci men Type: BLOOD SPECIMENOrdering Facility: [facility] Address: [address] [place] [address] Performed By: #### 2 4321-2, 277-, , HFP ####[facility] CARMELCLIA [id number] [place] [address] [place] Calcium [Mass/Vol] 9.4 mg/dL Normal 8.5-10.2 [facility] Comment on above: Order Comment: Speci men Type: BLOOD SPECIMENOrdering Facility: [facility] Address: [address] [place] [address] Performed By: #### 2 4321-2, 277-, , HFP ####[facility] LABORATORYCLIA [id number] [place] [address] [place] Chloride [Moles/Vol] 98 mmol/L Normal 97-105 [facility] Comment on above: Order Comment: Speci men Type: BLOOD SPECIMENOrdering Facility: [facility] Address: [address] [place] [address] Performed By: #### 2 4321-2, 2776-, , HFP ####[facility]PITALIA [id number] [place] [address] [place] CO2 [Moles/Vol] 29 mmol/L Normal 22-30 [facility] Comment on above: Order Comment: Speci men Type: BLOOD SPECIMENOrdering Facility: [facility] Address: [address] [place] [address] Performed By: #### 2 4321-2, 2777-, , [facility] ####[facility] HOSPITALIA [id number] [place] [address] [place] Creatinine [Mass/Vol] 0.67 mg/dL Low 0.73-1.22 [facility] Comment on above: Order Comment: Speci men Type: BLOOD SPECIMENOrdering Facility: [facility] Address: [address] [place] [address] Performed By: #### 2 4321-2, 2776-05, , [facility] ####[facility]OSPITALIA [id number] [address] OF [facility] ESTIMATED GLOMERULAR FILTRATION RATE 101 mL/min/1.73m??? Normal >=60 [facility] Comment on above: Order Comment: Speci men Type: BLOOD SPECIMENOrdering Facility: [facility] Address: [address] [place] [address] Result Comment: Luzmaria mated Glomerular Filtration Rate [...] actual GFR. Performed By: #### 2 4321-2, 27711-04, , [facility] ####[facility]PITALIA [id number] [place] [address] [place] Glucose [Mass/Vol] 117 mg/dL High 74-99 [facility] Comment on above: Order Comment: Speci men Type: BLOOD SPECIMENOrdering Facility: [facility] Address: [address] [place], [place] [address] Result Comment: The [place] Diabetes Association (ADA) provides guidance for cutoff [...] Standards of Medical Care in Diabetes 2016, [place] Diabetes Association. Diabetes Care. 2016.39(Suppl 1). Performed By: #### 2 4321-2, 2776-, , [facility] ####[facility] LABORATORYCLIA [id number] [place] [address] [place] Potassium [Moles/Vol] 4.1 mmol/L Normal 3.7-5.1 [facility] Comment on above: Order Comment: Speci men Type: BLOOD SPECIMENOrdering Facility: [facility] Address: [address] [place], [place] [address] Performed By: #### 2 4321-2, 2776-05, , [facility] ####[facility] LABORATORYCLIA [id number] [place] [address] [place] Sodium [Moles/Vol] 136 mmol/L Normal 136-144 [facility] Comment on above: Order Comment: Speci men Type: BLOOD SPECIMENOrdering Facility: [facility] Address: [address] [place], [place] [address] Performed By: #### 2 4321-2, 2776-05, , [facility] ####[facility] LABORATORYCLIA [id number] [place] [address] [place] Urea nitrogen [Mass/Vol] 31 mg/dL High 9-24 [facility] Comment on above: Order Comment: Speci men Type: BLOOD SPECIMENOrdering Facility: [facility] Address: [address] [place] [address] Performed By: #### 2 4321-2, 2777-1, 49059-2, HFP ####[facility] LABORATORYCLIA [id number] [address] [place] OF [facility] CBC W Auto Differential pane l (Bld)on 08-07-2021 Basophils (Bld) [#/Vol] 0.03 10*3/uL Normal <0.11 [facility] Comment on above: Order Comment: Speci men Type: BLOOD SPECIMENOrdering Facility: [facility] Address: [address] [place] [address] Performed By: #### 5 7021-8 ####[facility] LABORATORYCLIA [id number] [address] [place] Basophils/100 WBC (Bld) 0.3 % Normal [facility] Comment on above: Order Comment: Speci men Type: BLOOD SPECIMENOrdering Facility: [facility] Address: [address] [place] [address] Performed By: #### 5 7021-8 ####[facility] LABORATORYCLIA [id number] [address] Differential cell count method Nom (Bld) Auto Normal [facility] Comment on above: Order Comment: Speci men Type: BLOOD SPECIMENOrdering Facility: [facility] Address: [address] [place] [address] Performed By: #### 5 7021-8 ####[facility] LABORATORYCLIA [id number] [address] [place] Eosinophils (Bld) [#/Vol] 0.16 10*3/uL Normal <0.46 [facility] Comment on above: Order Comment: Speci men Type: BLOOD SPECIMENOrdering Facility: [facility] Address: [address] [place] [address] Performed By: #### 5 7021-8 ####[facility] LABORATORYCLIA [id number] [address] STATES [facility] Eosinophils/100 WBC (Bld) 1.6 % Normal [facility] Comment on above: Order Comment: Speci men Type: BLOOD SPECIMENOrdering Facility: [facility] Address: [address] [place] [address] Performed By: #### 5 7021-8 ####[facility] LABORATORYCLIA [id number] [address] STATES [facility] Erythrocyte distribution width (RBC) [Ratio] 18.1 % High 11.5-15.0 [facility] Comment on above: Order Comment: Speci men Type: BLOOD SPECIMENOrdering Facility: [facility] Address: [address] [place] [address] Performed By: #### 5 7021-8 ####[facility] LABORATORYCLIA [id number] [address] Hematocrit (Bld) [Volume fraction] 30.6 % Low 39.0-51.0 [facility] Comment on above: Order Comment: Speci men Type: BLOOD SPECIMENOrdering Facility: [facility] Address: [address] [place] [address] Performed By: #### 5 7021-8 ####[facility] LABORATORYCLIA [id number] [address] [place] Hemoglobin (Bld) [Mass/Vol] 9.4 g/dL Low 13.0-17.0 [facility] Comment on above: Order Comment: Speci men Type: BLOOD SPECIMENOrdering Facility: [facility] Address: [address] [place] [address] Performed By: #### 5 7021-8 ####[facility] LABORATORYCLIA [id number] [address] IMMATURE GRAN % 0.4 % Normal [facility] Comment on above: Order Comment: Speci men Type: BLOOD SPECIMENOrdering Facility: [facility] Address: [address] [place] [address] Performed By: #### 5 7021-8 ####[facility] LABORATORYCLIA [id number] [address] IMMATURE GRAN ABS 0.04 k/uL Normal <0.10 [facility] Comment on above: Order Comment: Speci men Type: BLOOD SPECIMENOrdering Facility: [facility] Address: [address] [place] [address] Performed By: #### 5 7021-8 ####[facility] LABORATORYCLIA [id number] [address] Lymphocytes (Bld) [#/Vol] 2.05 10*3/uL Normal 1.00-4.00 [facility] Comment on above: Order Comment: Speci men Type: BLOOD SPECIMENOrdering Facility: [facility] Address: [address] [place] [address] Performed By: #### 5 7021-8 ####[facility] LABORATORYCLIA [id number] [address] Lymphocytes/100 WBC (Bld) 20.2 % Normal [facility] Comment on above: Order Comment: Speci men Type: BLOOD SPECIMENOrdering Facility: [facility] Address: [address] [place] [address] Performed By: #### 5 7021-8 ####[facility] LABORATORYCLIA [id number] [address] MCH (RBC) [Entitic mass] 28.8 pg Normal 26.0-34.0 [facility] Comment on above: Order Comment: Speci men Type: BLOOD SPECIMENOrdering Facility: [facility] Address: [address] [place] [address] Performed By: #### 5 7021-8 ####[facility] LABORATORYCLIA [id number] [address] MCHC (RBC) [Mass/Vol] 30.7 g/dL Normal 30.5-36.0 [facility] Comment on above: Order Comment: Speci men Type: BLOOD SPECIMENOrdering Facility: [facility] Address: [address] [place] [address] Performed By: #### 5 7021-8 ####[facility] LABORATORYCLIA [id number] [address] MCV (RBC) [Entitic vol] 93.9 fL Normal 80.0-100.0 [facility] Comment on above: Order Comment: Speci men Type: BLOOD SPECIMENOrdering Facility: [facility] Address: [address] [place] [address] Performed By: #### 5 7021-8 ####[facility] LABORATORYCLIA [id number] [address] [place] Monocytes (Bld) [#/Vol] 0.64 10*3/uL Normal <0.87 [facility] Comment on above: Order Comment: Speci men Type: BLOOD SPECIMENOrdering Facility: [facility] Address: [address] [place] [address] Performed By: #### 5 7021-8 ####[facility] LABORATORYCLIA [id number] [address] Monocytes/100 WBC (Bld) 6.3 % Normal [facility] Comment on above: Order Comment: Speci men Type: BLOOD SPECIMENOrdering Facility: [facility] Address: [address] [place] [address] Performed By: #### 5 7021-8 ####[facility] LABORATORYCLIA [id number] [address] STATES [facility] Neutrophils (Bld) [#/Vol] 7.22 10*3/uL Normal 1.45-7.50 [facility] Comment on above: Order Comment: Speci men Type: BLOOD SPECIMENOrdering Facility: [facility] Address: [address] [place] [address] Performed By: #### 5 7021-8 ####[facility] LABORATORYCLIA [id number] [address] Neutrophils/100 WBC (Bld) 71.2 % Normal [facility] Comment on above: Order Comment: Speci men Type: BLOOD SPECIMENOrdering Facility: [facility] Address: [address] [place] [address] Performed By: #### 5 7021-8 ####[facility] LABORATORYCLIA [id number] [address] [place] Nucleated RBC (Bld) [#/Vol] 10*3/uL Normal <0.01 [facility] Comment on above: Order Comment: Speci men Type: BLOOD SPECIMENOrdering Facility: [facility] Address: [address] [place] [address] Performed By: #### 5 7021-8 ####[facility] LABORATORYCLIA [id number] [address] Nucleated RBC/100 WBC (Bld) [Ratio] 0.0 /100 WBC Normal [facility] Comment on above: Order Comment: Speci men Type: BLOOD SPECIMENOrdering Facility: [facility] Address: [address] [place] [address] Performed By: #### 5 7021-8 ####[facility] LABORATORYCLIA [id number] [address] [place] Platelet mean volume (Bld) [Entitic vol] 9.9 fL Normal 9.0-12.7 [facility] Comment on above: Order Comment: Speci men Type: BLOOD SPECIMENOrdering Facility: [facility] Address: [address] Performed By: #### 5 7021-8 ####[facility] LABORATORYCLIA [id number] [address] [place] Platelets (Bld) [#/Vol] 227 10*3/uL Normal 150-400 [facility] Comment on above: Order Comment: Speci men Type: BLOOD SPECIMENOrdering Facility: [facility] Address: [address] [place], [place] [address] Performed By: #### 5 7021-8 ####[facility] LABORATORYCLIA [id number] [address] [place] OF [facility] RBC (Bld) [#/Vol] 3.26 10*6/uL Low 4.20-6.00 [facility] Comment on above: Order Comment: Speci men Type: BLOOD SPECIMENOrdering Facility: [facility] Address: [address] [place] [address] Performed By: #### 5 7021-8 ####[facility] LABORATORYCLIA [id number] [address] [facility] WBC (Bld) [#/Vol] 10.14 10*3/uL Normal 3.70-11.00 [facility] Comment on above: Order Comment: Speci men Type: BLOOD SPECIMENOrdering Facility: [facility] Address: [address] [place] [address] Performed By: #### 5 7021-8 ####[facility] LABORATORYCLIA [id number] [address] [place] BRAIN WO IVCONon 08-08-19 CT BRAIN WO IVCON Normal [facility] HEPATIC FUNCTION PNLon 08-07 Albumin [Mass/Vol] 3.6 g/dL Low 3.9-4.9 [facility] Comment on above: Order Comment: Speci men Type: BLOOD SPECIMENOrdering Facility: [facility] Address: [address] [place] [address] Performed By: #### 2 4321-2, 2777-, , HFP ####[facility] LABORATORYCLIA [id number] [address] ALP [Catalytic activity/Vol] 124 U/L High 38-113 [facility] Comment on above: Order Comment: Speci men Type: BLOOD SPECIMENOrdering Facility: [facility] Address: [address] [place] [address] Performed By: #### 2 4321-2, 2777-, , HFP ####[facility] LABORATORYCLIA [id number] [place] [address] [place] ALT With P-5'-P [Catalytic activity/Vol] 29 U/L Normal 10-54 [facility] Comment on above: Order Comment: Speci men Type: BLOOD SPECIMENOrdering Facility: [facility] Address: [address] [place] [address] Performed By: #### 2 4321-2, 2776-05, , HFP ####[facility] LABORATORYCLIA [id number] [address] OF [place] AST With P-5'-P [Catalytic activity/Vol] 18 U/L Normal 14-40 [facility] Comment on above: Order Comment: Speci men Type: BLOOD SPECIMENOrdering Facility: [facility] Address: [address] [place] [address] Performed By: #### 2 4321-2, 2776-05, , HFP ####[facility]ITALIA [id number] [address] [place] Bilirubin [Mass/Vol] 0.3 mg/dL Normal 0.2-1.3 [facility] Comment on above: Order Comment: Speci men Type: BLOOD SPECIMENOrdering Facility: [facility] Address: [address] [place] [address] Performed By: #### 2 4321-2, 2776-05, , HFP ####[facility] LABORATORYCLIA [id number] [address] Bilirubin.conjugated [Mass/Vol] mg/dL Normal <0.2 [facility] Comment on above: Order Comment: Speci men Type: BLOOD SPECIMENOrdering Facility: [facility] Address: [address] [place], [place] [address] Performed By: #### 2 4321-2, 2776-05, , HFP ####[facility] LABORATORYCLIA [id number] [address] [place] Protein [Mass/Vol] 6.4 g/dL Normal 6.3-8.0 [facility] Comment on above: Order Comment: Speci men Type: BLOOD SPECIMENOrdering Facility: [facility] Address: [address] [place] [address] Performed By: #### 2 4321-2, 2777-1, , HFP ####[facility] LABORATORYCLIA [id number] [place] [address] [place] Magnesium SerPl-mCncon 08-07 Magnesium [Mass/Vol] 2.3 mg/dL Normal 1.7-2.3 [facility] Comment on above: Order Comment: Speci men Type: BLOOD SPECIMENOrdering Facility: [facility] Address: [address] [place] [address] Performed By: #### 2 4321-2, 277-, , HFP ####[facility] LABORATORYCLIA [id number] [place] [address] [place] NURSING PROGon 08-07-2021 NURSING PROG Normal [facility] Phosphate SerPl-ncon 08-07 Phosphate [Mass/Vol] 3.5 mg/dL Normal 2.7-4.8 [facility] Comment on above: Order Comment: Speci men Type: BLOOD SPECIMENOrdering Facility: [facility] Address: [address] [place] [address] Performed By: #### 2 4321-2, 2777, , HFP ####[facility] LABORATORYCLIA [id number] [place] [address] [place] ANES POSTPROC EVALon 022 ANES POSTPROC EVAL Normal [facility] Basic metabolic 2000 panelon 08-06-2021 Anion gap [Moles/Vol] 11 mmol/L Normal 9-18 [facility] Comment on above: Order Comment: Speci men Type: BLOOD SPECIMENOrdering Facility: [facility] Address: [address] [place] [address] Performed By: #### 2 4321-2, 2776-05, ####[facility] LABORATORYCLIA [id number] [place] [address] [place] Calcium [Mass/Vol] 8.2 mg/dL Low 8.5-10.2 [facility] Comment on above: Order Comment: Speci men Type: BLOOD SPECIMENOrdering Facility: [facility] Address: [address] [place] [address] Performed By: #### 2 4321-2, 2776-05, ####[facility] LABORATORYCLIA [id number] [place] [address] [place] Chloride [Moles/Vol] 100 mmol/L Normal 97-105 [facility] Comment on above: Order Comment: Speci men Type: BLOOD SPECIMENOrdering Facility: [facility] Address: [address] [place] [address] Performed By: #### 2 4321-2, 2776-05, ####[facility] LABORATORYCLIA [id number] [place] [address] [place] CO2 [Moles/Vol] 23 mmol/L Normal 22-30 [facility] Comment on above: Order Comment: Speci men Type: BLOOD SPECIMENOrdering Facility: [facility] Address: [address] [address] Performed By: #### 2 4321-2, 2776-05, ####[facility] LABORATORYCLIA [id number] [place] [address] [place] Creatinine [Mass/Vol] 0.55 mg/dL Low 0.73-1.22 [facility] Comment on above: Order Comment: Speci men Type: BLOOD SPECIMENOrdering Facility: [facility] Address: [address] [address] Performed By: #### 2 4321-2, 2776-05, ####[facility] HOSPITALIA [id number] [place] [address] [place] ESTIMATED GLOMERULAR FILTRATION RATE 107 mL/min/1.73m??? Normal >=60 [facility] Comment on above: Order Comment: Johncara feldman Type: BLOOD SPECIMENOrdering Facility: [facility] Address: [address] [place], [place] [address] Result Comment: Luzmaria mated Glomerular Filtration Rate [...] GFR. Performed By: #### 2 4321-2, 2777-, ####[facility] HOSPITALIA [id number] [place] [address] [place] Glucose [Mass/Vol] 275 mg/dL High 74-99 [facility] Comment on above: Order Comment: Shira feldman Type: BLOOD SPECIMENOrdering Facility: [facility] Address: [address] [place] [address] Result Comment: The [place] Diabetes Association (ADA) provides guidance for cutoff [...] Standards of Medical Care in Diabetes 2016, [place] Diabetes Association. Diabetes Care. 2016.39(Suppl 1). Performed By: #### 2 4321-2, 2777-, ####[facility] LABORATORYCLIA [id number] [place] [id number] [place] Potassium [Moles/Vol] 3.6 mmol/L Low 3.7-5.1 [facility] Comment on above: Order Comment: Speci men Type: BLOOD SPECIMENOrdering Facility: [facility] Address: [address] [place] [address] Performed By: #### 2 4321-2, 2776-05, ####[facility] LABORATORYCLIA [id number] [place] [address] [place] [address] [facility] Sodium [Moles/Vol] 134 mmol/L Low 136-144 [facility] Comment on above: Order Comment: Speci men Type: BLOOD SPECIMENOrdering Facility: [facility] Address: [address] [place] [address] Performed By: #### 2 4321-2, 2776-05, ####[facility] LABORATORYCLIA [id number] [address] OF [facility] Urea nitrogen [Mass/Vol] 29 mg/dL High 9-24 [facility] Comment on above: Order Comment: Speci men Type: BLOOD SPECIMENOrdering Facility: [facility] Address: [address] [place] [address] Performed By: #### 2 4321-2, 2776-05, ####[facility] LABORATORYCLIA [id number] [address] [place] CBC W Auto Differential pane l (Bld)on 08-06-2021 Basophils (Bld) [#/Vol] 0.03 10*3/uL Normal <0.11 [facility] Comment on above: Order Comment: Speci men Type: BLOOD SPECIMENOrdering Facility: [facility] Address: [address] [place] [address] Performed By: #### 5 7021-8 ####[facility] LABORATORYCLIA [id number] [address] Basophils/100 WBC (Bld) 0.3 % Normal [facility] Comment on above: Order Comment: Speci men Type: BLOOD SPECIMENOrdering Facility: [facility] Address: [address] [address] Performed By: #### 5 7021-8 ####[facility] LABORATORYCLIA [id number] [address] Differential cell count method Nom (Bld) Auto Normal [facility] Comment on above: Order Comment: Speci men Type: BLOOD SPECIMENOrdering Facility: [facility] Address: [address] [place] [address] Performed By: #### 5 7021-8 ####[facility] LABORATORYCLIA [id number] [address] [place] Eosinophils (Bld) [#/Vol] 0.18 10*3/uL Normal <0.46 [facility] Comment on above: Order Comment: Speci men Type: BLOOD SPECIMENOrdering Facility: [facility] Address: [address] [place] [address] Performed By: #### 5 7021-8 ####[facility] LABORATORYCLIA [id number] [address] Eosinophils/100 WBC (Bld) 1.6 % Normal [facility] Comment on above: Order Comment: Speci men Type: BLOOD SPECIMENOrdering Facility: [facility] Address: [address] [place] [address] Performed By: #### 5 7021-8 ####[facility] LABORATORYCLIA [id number] [address] [place] Erythrocyte distribution width (RBC) [Ratio] 17.9 % High 11.5-15.0 [facility] Comment on above: Order Comment: Speci men Type: BLOOD SPECIMENOrdering Facility: [facility] Address: [address] [place] [address] Performed By: #### 5 7021-8 ####[facility] LABORATORYCLIA [id number] [address] [place] Hematocrit (Bld) [Volume fraction] 27.6 % Low 39.0-51.0 [facility] Comment on above: Order Comment: Speci men Type: BLOOD SPECIMENOrdering Facility: [facility] Address: [address] [place] [address] Performed By: #### 5 7021-8 ####[facility] LABORATORYCLIA [id number] [address] OF [facility] Hemoglobin (Bld) [Mass/Vol] 8.5 g/dL Low 13.0-17.0 [facility] Comment on above: Order Comment: Speci men Type: BLOOD SPECIMENOrdering Facility: [facility] Address: [address] [place] [address] Performed By: #### 5 7021-8 ####[facility] LABORATORYCLIA [id number] [address] IMMATURE GRAN % 0.6 % Normal [facility] Comment on above: Order Comment: Speci men Type: BLOOD SPECIMENOrdering Facility: [facility] Address: [address] [place] [address] Performed By: #### 5 7021-8 ####[facility] LABORATORYCLIA [id number] [address] IMMATURE GRAN ABS 0.07 k/uL Normal <0.10 [facility] Comment on above: Order Comment: Speci men Type: BLOOD SPECIMENOrdering Facility: [facility] Address: [address] [place] [address] Performed By: #### 5 7021-8 ####[facility] LABORATORYCLIA [id number] [address] [facility] Lymphocytes (Bld) [#/Vol] 1.81 10*3/uL Normal 1.00-4.00 [facility] Comment on above: Order Comment: Speci men Type: BLOOD SPECIMENOrdering Facility: [facility] Address: [address] [place] [address] Performed By: #### 5 7021-8 ####[facility] LABORATORYCLIA [id number] [address] Lymphocytes/100 WBC (Bld) 15.7 % Normal [facility] Comment on above: Order Comment: Speci men Type: BLOOD SPECIMENOrdering Facility: [facility] Address: [address] [place] [address] Performed By: #### 5 7021-8 ####[facility] LABORATORYCLIA [id number] [address] MCH (RBC) [Entitic mass] 28.6 pg Normal 26.0-34.0 [facility] Comment on above: Order Comment: Speci men Type: BLOOD SPECIMENOrdering Facility: [facility] Address: [address] [place] [address] Performed By: #### 5 7021-8 ####[facility] LABORATORYCLIA [id number] [address] MCHC (RBC) [Mass/Vol] 30.8 g/dL Normal 30.5-36.0 [facility] Comment on above: Order Comment: Speci men Type: BLOOD SPECIMENOrdering Facility: [facility] Address: [address] [place] [address] Performed By: #### 5 7021-8 ####[facility] LABORATORYCLIA [id number] [address] MCV (RBC) [Entitic vol] 92.9 fL Normal 80.0-100.0 [facility] Comment on above: Order Comment: Speci men Type: BLOOD SPECIMENOrdering Facility: [facility] Address: [address] [place] [address] Performed By: #### 5 7021-8 ####[facility] LABORATORYCLIA [id number] [address] Monocytes (Bld) [#/Vol] 0.63 10*3/uL Normal <0.87 [facility] Comment on above: Order Comment: Speci men Type: BLOOD SPECIMENOrdering Facility: [facility] Address: [address] [place] [address] Performed By: #### 5 7021-8 ####[facility]ORATORYCLIA [id number] [address] [place] Monocytes/100 WBC (Bld) 5.5 % Normal [facility] Comment on above: Order Comment: Speci men Type: BLOOD SPECIMENOrdering Facility: [facility] Address: [address] [place] [address] Performed By: #### 5 7021-8 ####[facility] LABORATORYCLIA [id number] [place] [address] [place] Neutrophils (Bld) [#/Vol] 8.78 10*3/uL High 1.45-7.50 [facility] Comment on above: Order Comment: Speci men Type: BLOOD SPECIMENOrdering Facility: [facility] Address: [address] [place] [address] Performed By: #### 5 7021-8 ####[facility] LABORATORYCLIA [id number] [address] Neutrophils/100 WBC (Bld) 76.3 % Normal [facility] Comment on above: Order Comment: Speci men Type: BLOOD SPECIMENOrdering Facility: [facility] Address: [address] [place] [address] Performed By: #### 5 7021-8 ####[facility] LABORATORYCLIA [id number] [address] [place] Nucleated RBC (Bld) [#/Vol] 10*3/uL Normal <0.01 [facility] Comment on above: Order Comment: Speci men Type: BLOOD SPECIMENOrdering Facility: [facility] Address: [address] [place] [address] Performed By: #### 5 7021-8 ####[facility] LABORATORYCLIA [id number] [address] [place] Nucleated RBC/100 WBC (Bld) [Ratio] 0.0 /100 WBC Normal [facility] Comment on above: Order Comment: Speci men Type: BLOOD SPECIMENOrdering Facility: [facility] Address: [address] [place], [place] [address] Performed By: #### 5 7021-8 ####[facility] LABORATORYCLIA [id number] [address] Platelet mean volume (Bld) [Entitic vol] 9.9 fL Normal 9.0-12.7 [facility] Comment on above: Order Comment: Speci men Type: BLOOD SPECIMENOrdering Facility: [facility] Address: [address] [place], [place] [address] Performed By: #### 5 7021-8 ####[facility] LABORATORYCLIA [id number] [address] [place] Platelets (Bld) [#/Vol] 230 10*3/uL Normal 150-400 [facility] Comment on above: Order Comment: Speci men Type: BLOOD SPECIMENOrdering Facility: [facility] Address: [address] [place] [address] Performed By: #### 5 7021-8 ####[facility] LABORATORYCLIA [id number] [address] [place] RBC (Bld) [#/Vol] 2.97 10*6/uL Low 4.20-6.00 [facility] Comment on above: Order Comment: Speci men Type: BLOOD SPECIMENOrdering Facility: [facility] Address: [address] [place], [place] [address] Performed By: #### 5 7021-8 ####[facility] LABORATORYCLIA [id number] [address] [place] WBC (Bld) [#/Vol] 11.50 10*3/uL High 3.70-11.00 [facility] Comment on above: Order Comment: Speci men Type: BLOOD SPECIMENOrdering Facility: [facility] Address: [address] [place] [address] Performed By: #### 5 7021-8 ####[facility] LABORATORYCLIA [id number] [address] [place] CONSULT PROGon 08-06-2021 CONSULT PROG Normal [facility] Magnesium SerPl-mCncon 08-06 Magnesium [Mass/Vol] 1.9 mg/dL Normal 1.7-2.3 [facility] Comment on above: Order Comment: Speci men Type: BLOOD SPECIMENOrdering Facility: [facility] Address: [address] [place] [address] Performed By: #### 2 4321-2, 2777-1, ####[facility] LABORATORYCLIA [id number] [address] NURSING PROGon 08-06-2021 NURSING PROG Normal [facility] OPERATIVE NOon 08-06-2021 OPERATIVE NO Normal [facility] Phosphate SerPl-mCncon 08-06 Phosphate [Mass/Vol] 4.2 mg/dL Normal 2.7-4.8 [facility] Comment on above: Order Comment: Speci men Type: BLOOD SPECIMENOrdering Facility: [facility] Address: [address] [place] [address] Performed By: #### 2 4321-2, 2777-1, ####[facility] LABORATORYCLIA [id number] [address] ALLIED HEALTHon 08-05-2021 ALLIED HEALTH Normal [facility] ALLIED HEALTH Normal [facility] ANES PRE-OPon 08-05-2021 ANES PRE-OP Normal [facility] BRIEF OP NOTon 08-05-2021 BRIEF OP NOT Normal [facility] Bacteria Spec Resp Culton Bacteria identified Respiratory culture Nom (Unsp spec) CULTURE, RESPIRATORY: Few Normal respiratory chris present ORGANISM ID: 1 Few Proteus species Insignificant colony count. No further workup. GRAM STAIN: No organisms seen Few Polymorphonuclear leukocytes Few Epithelial cells Abnormal [facility] Comment on above: Performed By: #### 3 2355-0 ####[facility] LABORATORYCLIA [id number] [address] [place] Bacteria Ur Culton 2 Bacteria identified Cx Nom (U) CULTURE, URINE: No growth (<1,000 CFU/ml) Normal [facility] Comment on above: Performed By: #### 6 30-4 ####[facility] LABORATORYCLIA [id number] [address] [place] Basic metabolic 2000 panelon 08-05-2021 Anion gap [Moles/Vol] 7 mmol/L Low 9-18 [facility] Comment on above: Order Comment: Speci men Type: BLOOD SPECIMENOrdering Facility: [facility] Address: [address] [place] [address] Performed By: #### 2 4321-2 ####[facility] LABORATORYCLIA [id number] [address] [place] Calcium [Mass/Vol] 9.5 mg/dL Normal 8.5-10.2 [facility] Comment on above: Order Comment: Speci men Type: BLOOD SPECIMENOrdering Facility: [facility] Address: [address] [place] [address] Performed By: #### 2 4321-2 ####[facility] LABORATORYCLIA [id number] [address] [place] Chloride [Moles/Vol] 97 mmol/L Normal 97-105 [facility] Comment on above: Order Comment: Speci men Type: BLOOD SPECIMENOrdering Facility: [facility] Address: [facility] [address] Performed By: #### 2 4321-2 ####[facility] LABORATORYCLIA [id number] [place] [address] [place] CO2 [Moles/Vol] 30 mmol/L Normal 22-30 [facility] Comment on above: Order Comment: Speci men Type: BLOOD SPECIMENOrdering Facility: [facility] Address: [facility] [address] Performed By: #### 2 4321-2 ####[facility] LABORATORYCLIA [id number] [place] [address] [place] Creatinine [Mass/Vol] 0.61 mg/dL Low 0.73-1.22 [facility] Comment on above: Order Comment: Shira feldman Type: BLOOD SPECIMENOrdering Facility: [facility] Address: [address] [address] Performed By: #### 2 4321-2 ####[facility] LABORATORYCLIA [id number] [address] ESTIMATED GLOMERULAR FILTRATION RATE 104 mL/min/1.73m??? Normal >=60 [facility] Comment on above: Order Comment: Shira feldman Type: BLOOD SPECIMENOrdering Facility: [facility] Address: [address] [place] [address] Result Comment: Luzmaria mated Glomerular Filtration Rate [...] actual GFR. Performed By: #### 2 4321-2 ####[facility] LABORATORYCLIA [id number] [address] [place] Glucose [Mass/Vol] 124 mg/dL High 74-99 [facility] Comment on above: Order Comment: Shira feldman Type: BLOOD SPECIMENOrdering Facility: [facility] Address: [address] [address] Result Comment: The [place] Diabetes Association (ADA) provides guidance for cutoff [...] Standards of Medical Care in Diabetes 2016, [place] Diabetes Association. Diabetes Care. 2016.39(Suppl 1). Performed By: #### 2 4321-2 ####[facility] LABORATORYCLIA [id number] [address] OF [facility] Potassium [Moles/Vol] 4.9 mmol/L Normal 3.7-5.1 [facility] Comment on above: Order Comment: Speci men Type: BLOOD SPECIMENOrdering Facility: [facility] Address: [address] [place] [address] Performed By: #### 2 4321-2 ####[facility] LABORATORYCLIA [id number] [address] STATES [facility] Sodium [Moles/Vol] 134 mmol/L Low 136-144 [facility] Comment on above: Order Comment: Speci men Type: BLOOD SPECIMENOrdering Facility: [facility] Address: [address] [place] [address] Performed By: #### 2 4321-2 ####[facility] LABORATORYCLIA [id number] [address] STATES [facility] Urea nitrogen [Mass/Vol] 40 mg/dL High 9-24 [facility] Comment on above: Order Comment: Speci men Type: BLOOD SPECIMENOrdering Facility: [facility] Address: [address] [place] [address] Performed By: #### 2 4321-2 ####[facility] LABORATORYCLIA [id number] [address] [place] CBC W Auto Differential pane l (Bld)on 08-05-2021 Basophils (Bld) [#/Vol] 0.04 10*3/uL Normal <0.11 [facility] Comment on above: Order Comment: Speci men Type: BLOOD SPECIMENOrdering Facility: [facility] Address: [address] [place] [address] Performed By: #### 5 7021-8 ####[facility] LABORATORYCLIA [id number] [address] STATES [facility] Basophils/100 WBC (Bld) 0.3 % Normal [facility] Comment on above: Order Comment: Speci men Type: BLOOD SPECIMENOrdering Facility: [facility] Address: [address] [place] [address] Performed By: #### 5 7021-8 ####[facility] LABORATORYCLIA [id number] [address] [place] Differential cell count method Nom (Bld) Auto Normal [facility] Comment on above: Order Comment: Speci men Type: BLOOD SPECIMENOrdering Facility: [facility] Address: [address] [place] [address] Performed By: #### 5 7021-8 ####[facility] LABORATORYCLIA [id number] [address] [place] Eosinophils (Bld) [#/Vol] 0.42 10*3/uL Normal <0.46 [facility] Comment on above: Order Comment: Speci men Type: BLOOD SPECIMENOrdering Facility: [facility] Address: [address] [place] [address] Performed By: #### 5 7021-8 ####[facility] LABORATORYCLIA [id number] [address] Eosinophils/100 WBC (Bld) 3.6 % Normal [facility] Comment on above: Order Comment: Speci men Type: BLOOD SPECIMENOrdering Facility: [facility] Address: [address] [place] [address] Performed By: #### 5 7021-8 ####[facility] LABORATORYCLIA [id number] [address] [place] Erythrocyte distribution width (RBC) [Ratio] 17.9 % High 11.5-15.0 [facility] Comment on above: Order Comment: Speci men Type: BLOOD SPECIMENOrdering Facility: [facility] Address: [address] [place] [address] Performed By: #### 5 7021-8 ####[facility] LABORATORYCLIA [id number] [address] Hematocrit (Bld) [Volume fraction] 30.8 % Low 39.0-51.0 [facility] Comment on above: Order Comment: Speci men Type: BLOOD SPECIMENOrdering Facility: [facility] Address: [address] [place] [address] Performed By: #### 5 7021-8 ####[facility] LABORATORYCLIA [id number] [address] Hemoglobin (Bld) [Mass/Vol] 9.6 g/dL Low 13.0-17.0 [facility] Comment on above: Order Comment: Speci men Type: BLOOD SPECIMENOrdering Facility: [facility] Address: [address] [place] [address] Performed By: #### 5 7021-8 ####[facility] LABORATORYCLIA [id number] [address] IMMATURE GRAN % 0.5 % Normal [facility] Comment on above: Order Comment: Speci men Type: BLOOD SPECIMENOrdering Facility: [facility] Address: [address] [place] [address] Performed By: #### 5 7021-8 ####[facility] LABORATORYCLIA [id number] [address] IMMATURE GRAN ABS 0.06 k/uL Normal <0.10 [facility] Comment on above: Order Comment: Speci men Type: BLOOD SPECIMENOrdering Facility: [facility] Address: [address] [place] [address] Performed By: #### 5 7021-8 ####[facility] LABORATORYCLIA [id number] [address] Lymphocytes (Bld) [#/Vol] 2.17 10*3/uL Normal 1.00-4.00 [facility] Comment on above: Order Comment: Speci men Type: BLOOD SPECIMENOrdering Facility: [facility] Address: [address] [place] [address] Performed By: #### 5 7021-8 ####[facility] LABORATORYCLIA [id number] [address] Lymphocytes/100 WBC (Bld) 18.7 % Normal [facility] Comment on above: Order Comment: Speci men Type: BLOOD SPECIMENOrdering Facility: [facility] Address: [address] [place] [address] Performed By: #### 5 7021-8 ####[facility] LABORATORYCLIA [id number] [address] STATES [facility] MCH (RBC) [Entitic mass] 28.9 pg Normal 26.0-34.0 [facility] Comment on above: Order Comment: Speci men Type: BLOOD SPECIMENOrdering Facility: [facility] Address: [address] [place] [address] Performed By: #### 5 7021-8 ####[facility] LABORATORYCLIA [id number] [address] STATES [facility] MCHC (RBC) [Mass/Vol] 31.2 g/dL Normal 30.5-36.0 [facility] Comment on above: Order Comment: Speci men Type: BLOOD SPECIMENOrdering Facility: [facility] Address: [address] [place] [address] Performed By: #### 5 7021-8 ####[facility] LABORATORYCLIA [id number] [address] MCV (RBC) [Entitic vol] 92.8 fL Normal 80.0-100.0 [facility] Comment on above: Order Comment: Speci men Type: BLOOD SPECIMENOrdering Facility: [facility] Address: [address] [place] [address] Performed By: #### 5 7021-8 ####[facility] LABORATORYCLIA [id number] [address] Monocytes (Bld) [#/Vol] 0.71 10*3/uL Normal <0.87 [facility] Comment on above: Order Comment: Speci men Type: BLOOD SPECIMENOrdering Facility: [facility] Address: [address] [place] [address] Performed By: #### 5 7021-8 ####[facility] LABORATORYCLIA [id number] [address] [place] Monocytes/100 WBC (Bld) 6.1 % Normal [facility] Comment on above: Order Comment: Speci men Type: BLOOD SPECIMENOrdering Facility: [facility] Address: [address] [place] [address] Performed By: #### 5 7021-8 ####[facility] LABORATORYCLIA [id number] [address] [place] Neutrophils (Bld) [#/Vol] 8.19 10*3/uL High 1.45-7.50 [facility] Comment on above: Order Comment: Speci men Type: BLOOD SPECIMENOrdering Facility: [facility] Address: [address] [place] [address] Performed By: #### 5 7021-8 ####[facility] LABORATORYCLIA [id number] [address] OF [facility] Neutrophils/100 WBC (Bld) 70.8 % Normal [facility] Comment on above: Order Comment: Speci men Type: BLOOD SPECIMENOrdering Facility: [facility] Address: [address] [place] [address] Performed By: #### 5 7021-8 ####[facility] LABORATORYCLIA [id number] [address] [place] Nucleated RBC (Bld) [#/Vol] 10*3/uL Normal <0.01 [facility] Comment on above: Order Comment: Speci men Type: BLOOD SPECIMENOrdering Facility: [facility] Address: [address] [place] [address] Performed By: #### 5 7021-8 ####[facility] LABORATORYCLIA [id number] [address] [place] Nucleated RBC/100 WBC (Bld) [Ratio] 0.0 /100 WBC Normal [facility] Comment on above: Order Comment: Speci men Type: BLOOD SPECIMENOrdering Facility: [facility] Address: [address] [place] [address] Performed By: #### 5 7021-8 ####[facility] LABORATORYCLIA [id number] [place] [address] [place] Platelet mean volume (Bld) [Entitic vol] 9.6 fL Normal 9.0-12.7 [facility] Comment on above: Order Comment: Speci men Type: BLOOD SPECIMENOrdering Facility: [facility] Address: [address] [place] [address] Performed By: #### 5 7021-8 ####[facility] LABORATORYCLIA [id number] [address] [place] Platelets (Bld) [#/Vol] 339 10*3/uL Normal 150-400 [facility] Comment on above: Order Comment: Speci men Type: BLOOD SPECIMENOrdering Facility: [facility] Address: [address] [place] [address] Performed By: #### 5 7021-8 ####[facility] LABORATORYCLIA [id number] [place] [address] [place] RBC (Bld) [#/Vol] 3.32 10*6/uL Low 4.20-6.00 [facility] Comment on above: Order Comment: Speci men Type: BLOOD SPECIMENOrdering Facility: [facility] Address: [address] [place] [address] Performed By: #### 5 7021-8 ####[facility] LABORATORYCLIA [id number] [address] [place] WBC (Bld) [#/Vol] 11.59 10*3/uL High 3.70-11.00 [facility] Comment on above: Order Comment: Speci men Type: BLOOD SPECIMENOrdering Facility: [facility] Address: [address] [place] [address] Performed By: #### 5 7021-8 ####[facility] LABORATORYCLIA [id number] [address] [facility] CT BRAIN WO IVCONon 08-06-19 CT BRAIN WO IVCON Normal [facility] Magnesium SerPl-mCncon 08-05 Magnesium [Mass/Vol] 2.2 mg/dL Normal 1.7-2.3 [facility] Comment on above: Order Comment: Speci men Type: BLOOD SPECIMENOrdering Facility: [facility] Address: [address] [place] [address] Performed By: #### 1 9123-9, 2777-1 ####[facility] LABORATORYCLIA [id number] [address] [place] NURSING PROGon 08-05-2021 NURSING PROG Normal [facility] NURSING PROG Normal [facility] NUTRITIONon 08-05-2021 NUTRITION Normal [facility] OPERATIVE NOon 08-05-2021 OPERATIVE NO Normal [facility] Phosphate SerPl-mCncon 08-05 Phosphate [Mass/Vol] 4.6 mg/dL Normal 2.7-4.8 [facility] Comment on above: Order Comment: Speci men Type: BLOOD SPECIMENOrdering Facility: [facility] Address: [address] [place] [address] Performed By: #### 1 9123-9, 2777-1 ####[facility] LABORATORYCLIA [id number] [address] [place] THERAPY NTon 08-05-2021 THERAPY NT Normal [facility] THERAPY NT Normal [facility] Urinalysis complete panel (U )on 08-05-2021 Bilirubin Ql (U) Negative Normal Negative [facility] Comment on above: Order Comment: Speci men Type: URINE SPECIMENOrdering Facility: [facility] Address: [address] [place] [address] Performed By: #### 2 4356-8 ####[facility] LABORATORYCLIA [id number] [address] Clarity (Unsp spec) Clear Normal Clear [facility] Comment on above: Order Comment: Speci men Type: URINE SPECIMENOrdering Facility: [facility] Address: [address] [place] [address] Performed By: #### 2 4356-8 ####[facility] LABORATORYCLIA [id number] [address] Color (U) Light Yellow Normal yellow [facility] Comment on above: Order Comment: Speci men Type: URINE SPECIMENOrdering Facility: [facility] Address: [address] [place] [address] Performed By: #### 2 4356-8 ####[facility] LABORATORYCLIA [id number] [address] Epithelial cells LM.HPF (Urine sed) [#/Area] Few Abnormal None Seen [facility] Comment on above: Order Comment: Speci men Type: URINE SPECIMENOrdering Facility: [facility] Address: [address] [place] [address] Performed By: #### 2 4356-8 ####[facility] LABORATORYCLIA [id number] [address] Glucose Test strip (U) [Mass/Vol] Negative Normal Negative [facility] Comment on above: Order Comment: Speci men Type: URINE SPECIMENOrdering Facility: [facility] Address: [address] [address] Performed By: #### 2 4356-8 ####[facility] LABORATORYCLIA [id number] [address] Hemoglobin Ql (U) Negative Normal Negative [facility] Comment on above: Order Comment: Speci men Type: URINE SPECIMENOrdering Facility: [facility] Address: [address] [address] Performed By: #### 2 4356-8 ####[facility] LABORATORYCLIA [id number] [address] [place] Hyaline casts (Urine sed) [#/Area] 1-3 /LPF Abnormal 0 /LPF [facility] Comment on above: Order Comment: Speci men Type: URINE SPECIMENOrdering Facility: [facility] Address: [address] [place] [address] Performed By: #### 2 4356-8 ####[facility] LABORATORYCLIA [id number] [address] [place] Ketones Ql (U) Negative Normal Negative [facility] Comment on above: Order Comment: Speci men Type: URINE SPECIMENOrdering Facility: [facility] Address: [address] [place] [address] Performed By: #### 2 4356-8 ####[facility] LABORATORYCLIA [id number] [address] Leukocyte esterase Test strip Ql (U) Negative Normal Negative [facility] Comment on above: Order Comment: Speci men Type: URINE SPECIMENOrdering Facility: [facility] Address: [address] [place] [address] Performed By: #### 2 4356-8 ####[facility] LABORATORYCLIA [id number] [address] [place] Nitrite Ql (U) Negative Normal Negative [facility] Comment on above: Order Comment: Speci men Type: URINE SPECIMENOrdering Facility: [facility] Address: [address] [place] [address] Performed By: #### 2 4356-8 ####[facility] LABORATORYCLIA [id number] [address] pH (U) 6.0 [pH] Normal 5.0-8.0 [facility] Comment on above: Order Comment: Speci men Type: URINE SPECIMENOrdering Facility: [facility] Address: [address] [place] [address] Performed By: #### 2 4356-8 ####[facility] LABORATORYCLIA [id number] [address] Protein (U) [Mass/Vol] Negative Normal Negative [facility] Comment on above: Order Comment: Speci men Type: URINE SPECIMENOrdering Facility: [facility] Address: [address] [place] [address] Performed By: #### 2 4356-8 ####[facility] LABORATORYCLIA [id number] [address] RBC LM.HPF (Urine sed) [#/Area] 0-3 /HPF Normal 0-3 /HPF [facility] Comment on above: Order Comment: Speci men Type: URINE SPECIMENOrdering Facility: [facility] Address: [address] [place] [address] Performed By: #### 2 4356-8 ####[facility] LABORATORYCLIA [id number] [address] Specific gravity (U) [Rel density] 1.015 Normal 1.005-1.030 [facility] Comment on above: Order Comment: Speci men Type: URINE SPECIMENOrdering Facility: [facility] Address: [address] [place] [address] Performed By: #### 2 4356-8 ####[facility] LABORATORYCLIA [id number] [address] Urobilinogen Ql (U) Normal Normal Negative [facility] Comment on above: Order Comment: Speci men Type: URINE SPECIMENOrdering Facility: [facility] Address: [address] [place] [address] Performed By: #### 2 4356-8 ####[facility] LABORATORYCLIA [id number] [address] WBC LM.HPF (Urine sed) [#/Area] 0-5 /HPF Normal 0-5 /HPF [facility] Comment on above: Order Comment: Speci men Type: URINE SPECIMENOrdering Facility: [facility] Address: [address] [id number] Performed By: #### 2 4356-8 ####[facility] LABORATORYCLIA [id number] [address] [place] XR ABDOMEN 1V SUPINEon 08-05 XR ABDOMEN 1V SUPINE Normal [facility] XR CHEST 1V FRONTALon 2021 XR CHEST 1V FRONTAL Normal [facility] XR CHEST 1V FRONTAL Normal [facility] XR NECK SOFT TISSUE 2V AP/LA Ton 08-05-2021 XR NECK SOFT TISSUE 2V AP/LAT Normal [facility] XR SKULL 2V AP/LATon 022 XR SKULL 2V AP/LAT Normal [facility] ALLIED HEALTHon 08-04-2021 ALLIED HEALTH Normal [facility] Bacteria Bld Culton 08-05-19 22 Bacteria identified Cx Nom (Bld) CULTURE, BLOOD: No growth 5 days Normal [facility] Comment on above: Performed By: #### 6 00-7 ####[facility] LABORATORYCLIA [id number] [address] [place] Bacteria identified Cx Nom (Bld) CULTURE, BLOOD: No growth 5 days Normal [facility] Comment on above: Performed By: #### 6 00-7 ####[facility] LABORATORYCLIA [id number] [address] [place] CBC W Auto Differential pane l (Bld)on 08-04-2021 Basophils (Bld) [#/Vol] 0.05 10*3/uL Normal <0.11 [facility] Comment on above: Order Comment: Speci men Type: BLOOD SPECIMENOrdering Facility: [facility] Address: [address] [phone] Performed By: #### 5 7021-8 ####[facility] LABORATORYCLIA [id number] [address] [place] Basophils/100 WBC (Bld) 0.4 % Normal [facility] Comment on above: Order Comment: Speci men Type: BLOOD SPECIMENOrdering Facility: [facility] Address: [address] [place] [address] Performed By: #### 5 7021-8 ####[facility] LABORATORYCLIA [id number] [address] Differential cell count method Nom (Bld) Auto Normal [facility] Comment on above: Order Comment: Speci men Type: BLOOD SPECIMENOrdering Facility: [facility] Address: [address] [place] [address] Performed By: #### 5 7021-8 ####[facility] LABORATORYCLIA [id number] [address] Eosinophils (Bld) [#/Vol] 0.21 10*3/uL Normal <0.46 [facility] Comment on above: Order Comment: Speci men Type: BLOOD SPECIMENOrdering Facility: [facility] Address: [address] [place] [address] Performed By: #### 5 7021-8 ####[facility] LABORATORYCLIA [id number] [address] Eosinophils/100 WBC (Bld) 1.7 % Normal [facility] Comment on above: Order Comment: Speci men Type: BLOOD SPECIMENOrdering Facility: [facility] Address: [address] [place] [address] Performed By: #### 5 7021-8 ####[facility] LABORATORYCLIA [id number] [address] Erythrocyte distribution width (RBC) [Ratio] 18.1 % High 11.5-15.0 [facility] Comment on above: Order Comment: Speci men Type: BLOOD SPECIMENOrdering Facility: [facility] Address: [address] [place] [address] Performed By: #### 5 7021-8 ####[facility] LABORATORYCLIA [id number] [address] [place] Hematocrit (Bld) [Volume fraction] 32.0 % Low 39.0-51.0 [facility] Comment on above: Order Comment: Speci men Type: BLOOD SPECIMENOrdering Facility: [facility] Address: [address] [place] [address] Performed By: #### 5 7021-8 ####[facility] LABORATORYCLIA [id number] [address] [place] Hemoglobin (Bld) [Mass/Vol] 10.0 g/dL Low 13.0-17.0 [facility] Comment on above: Order Comment: Speci men Type: BLOOD SPECIMENOrdering Facility: [facility] Address: [address] [place] [address] Performed By: #### 5 7021-8 ####[facility] LABORATORYCLIA [id number] [address] [facility] IMMATURE GRAN % 0.6 % Normal [facility] Comment on above: Order Comment: Speci men Type: BLOOD SPECIMENOrdering Facility: [facility] Address: [address] [place] [address] Performed By: #### 5 7021-8 ####[facility] LABORATORYCLIA [id number] [address] IMMATURE GRAN ABS 0.08 k/uL Normal <0.10 [facility] Comment on above: Order Comment: Speci men Type: BLOOD SPECIMENOrdering Facility: [facility] Address: [address] [place] [address] Performed By: #### 5 7021-8 ####[facility] LABORATORYCLIA [id number] [address] [place] Lymphocytes (Bld) [#/Vol] 2.55 10*3/uL Normal 1.00-4.00 [facility] Comment on above: Order Comment: Speci men Type: BLOOD SPECIMENOrdering Facility: [facility] Address: [address] [place] [address] Performed By: #### 5 7021-8 ####[facility] LABORATORYCLIA [id number] [address] Lymphocytes/100 WBC (Bld) 20.5 % Normal [facility] Comment on above: Order Comment: Speci men Type: BLOOD SPECIMENOrdering Facility: [facility] Address: [address] [place] [address] Performed By: #### 5 7021-8 ####[facility] LABORATORYCLIA [id number] [address] MCH (RBC) [Entitic mass] 28.9 pg Normal 26.0-34.0 [facility] Comment on above: Order Comment: Speci men Type: BLOOD SPECIMENOrdering Facility: [facility] Address: [address] [place] [address] Performed By: #### 5 7021-8 ####[facility] LABORATORYCLIA [id number] [address] [place] MCHC (RBC) [Mass/Vol] 31.3 g/dL Normal 30.5-36.0 [facility] Comment on above: Order Comment: Speci men Type: BLOOD SPECIMENOrdering Facility: [facility] Address: [address] [place] [address] Performed By: #### 5 7021-8 ####[facility] LABORATORYCLIA [id number] [address] STATES [facility] MCV (RBC) [Entitic vol] 92.5 fL Normal 80.0-100.0 [facility] Comment on above: Order Comment: Speci men Type: BLOOD SPECIMENOrdering Facility: [facility] Address: [address] [place] [address] Performed By: #### 5 7021-8 ####[facility] LABORATORYCLIA [id number] [address] Monocytes (Bld) [#/Vol] 0.85 10*3/uL Normal <0.87 [facility] Comment on above: Order Comment: Speci men Type: BLOOD SPECIMENOrdering Facility: [facility] Address: [address] [place], [place] [address] Performed By: #### 5 7021-8 ####[facility] LABORATORYCLIA [id number] [address] [place] Monocytes/100 WBC (Bld) 6.8 % Normal [facility] Comment on above: Order Comment: Speci men Type: BLOOD SPECIMENOrdering Facility: [facility] Address: [address] [place] [address] Performed By: #### 5 7021-8 ####[facility] LABORATORYCLIA [id number] [address] [place] Neutrophils (Bld) [#/Vol] 8.68 10*3/uL High 1.45-7.50 [facility] Comment on above: Order Comment: Speci men Type: BLOOD SPECIMENOrdering Facility: [facility] Address: [address] [place] [address] Performed By: #### 5 7021-8 ####[facility] LABORATORYCLIA [id number] [address] Neutrophils/100 WBC (Bld) 70.0 % Normal [facility] Comment on above: Order Comment: Speci men Type: BLOOD SPECIMENOrdering Facility: [facility] Address: [address] [place] [address] Performed By: #### 5 7021-8 ####[facility] LABORATORYCLIA [id number] [address] [place] Nucleated RBC (Bld) [#/Vol] 10*3/uL Normal <0.01 [facility] Comment on above: Order Comment: Speci men Type: BLOOD SPECIMENOrdering Facility: [facility] Address: [address] [place] [address] Performed By: #### 5 7021-8 ####[facility] LABORATORYCLIA [id number] [address] [place] Nucleated RBC/100 WBC (Bld) [Ratio] 0.0 /100 WBC Normal [facility] Comment on above: Order Comment: Speci men Type: BLOOD SPECIMENOrdering Facility: [facility] Address: [address] [place] [address] Performed By: #### 5 7021-8 ####[facility] LABORATORYCLIA [id number] [address] Platelet mean volume (Bld) [Entitic vol] 10.0 fL Normal 9.0-12.7 [facility] Comment on above: Order Comment: Speci men Type: BLOOD SPECIMENOrdering Facility: [facility] Address: [address] [place] [address] Performed By: #### 5 7021-8 ####[facility] LABORATORYCLIA [id number] [address] [place] Platelets (Bld) [#/Vol] 393 10*3/uL Normal 150-400 [facility] Comment on above: Order Comment: Speci men Type: BLOOD SPECIMENOrdering Facility: [facility] Address: [address] [place] [address] Performed By: #### 5 7021-8 ####[facility] LABORATORYCLIA [id number] [address] [place] RBC (Bld) [#/Vol] 3.46 10*6/uL Low 4.20-6.00 [facility] Comment on above: Order Comment: Speci men Type: BLOOD SPECIMENOrdering Facility: [facility] Address: [address] [place], [place] [address] Performed By: #### 5 7021-8 ####[facility] LABORATORYCLIA [id number] [address] [place] WBC (Bld) [#/Vol] 12.42 10*3/uL High 3.70-11.00 [facility] Comment on above: Order Comment: Speci men Type: BLOOD SPECIMENOrdering Facility: [facility] Address: [address] [place] [address] Performed By: #### 5 7021-8 ####[facility] LABORATORYCLIA [id number] [address] OF [facility] CT BRAIN WO IVCONon 08-05-19 CT BRAIN WO IVCON Normal [facility] Lactate (Bld) [Moles/Vol]on 08-04-2021 Lactate [Moles/Vol] 1.4 mmol/L Normal 0.5-2.2 [facility] Comment on above: Order Comment: Speci men Type: BLOOD SPECIMENOrdering Facility: [facility] Address: [address] [place] [address] Performed By: #### 3 2693-4 ####[facility]ITALIA [id number] [address] PROCALCITONIN (LAB)on 2021 Procalcitonin [Mass/Vol] 0.08 ng/mL Normal <0.09 [facility] Comment on above: Order Comment: Speci men Type: BLOOD SPECIMENOrdering Facility: [facility] Address: [address] [place] [address] Result Comment: For a guided interpretation of test results, please visit the Change in Procalcitonin Calculator, [email or web address]. Performed By: #### P ROCAL ####[facility]ITALIA [id number] [address] Prealbumin [Mass/Vol]on 07-07 Prealbumin Nephelometry [Mass/Vol] 35 mg/dL Normal 17-36 [facility] Comment on above: Order Comment: Speci men Type: BLOOD SPECIMENOrdering Facility: [facility] Address: [address] [place] [address] Performed By: #### 1 4338-8 ####[facility] LABORATORYIA [id number] [address] [facility] SARS-CoV-2 RNA Resp Ql MEGAN+p robeon 08-04-2021 SARS-CoV-2 (COVID-19) RNA MEGAN+probe Ql (Resp) COVID 19 RESULT: SARS-CoV-2 (Agent of COVID-19) Not Detected by RT-PCR or equivalent method. This test has been authorized by FDA under an Emergency Use Authorization (EUA). Normal [facility] Comment on above: Performed By: #### 9 4500-6 ####[facility] LABORATORYCLIA [id number] [address] TYPE AND SCREENon 08-04-2021 ABO O Normal [facility] Comment on above: Order Comment: Speci men Type: BLOOD SPECIMENOrdering Facility: [facility] Address: [address] [place] [address] Performed By: #### T SCR ####[facility] BLOOD BANKCLIA [id number] [address] HISTORICAL AB SCR STATUS Negative [facility] Comment on above: Order Comment: Speci men Type: BLOOD SPECIMENOrdering Facility: [facility] Address: [address] [place] [address] Performed By: #### T SCR ####[facility] BLOOD BANKCLIA [id number] [address] Rh Nom (Bld) Positive Normal [facility] Comment on above: Order Comment: Speci men Type: BLOOD SPECIMENOrdering Facility: [facility] Address: [address] [place] [address] Performed By: #### T SCR ####[facility] BLOOD BANKCLIA [id number] [address] TYPE AND SCREEN EXPIRATION 08/07/2021 23:59 Normal [facility] Comment on above: Order Comment: Speci men Type: BLOOD SPECIMENOrdering Facility: [facility] Address: [address] [place] [address] Performed By: #### T SCR ####[facility] BLOOD BANKCLIA [id number] [address] aPTT PPPon 08-04-2021 aPTT Coag (PPP) [Time] 51.8 s High 23.0-32.4 [facility] Comment on above: Order Comment: Speci men Type: BLOOD SPECIMENOrdering Facility: [facility] Address: [address] [place] [address] Performed By: #### 1 4979-9 ####[facility] LABORATORYCLIA [id number] [place] [address] [place] Basic metabolic 2000 panelon 08-03-2021 Anion gap [Moles/Vol] 9 mmol/L Normal 9-18 [facility] Comment on above: Order Comment: Speci men Type: BLOOD SPECIMENOrdering Facility: [facility] Address: [address] [place] [address] Performed By: #### 2 4321-2, , 2776-05 ####[facility] LABORATORYCLIA [id number] [place] [address] [place] Calcium [Mass/Vol] 9.3 mg/dL Normal 8.5-10.2 [facility] Comment on above: Order Comment: Speci men Type: BLOOD SPECIMENOrdering Facility: [facility] Address: [address] [place] [address] Performed By: #### 2 4321-2, , 2776-05 ####[facility] LABORATORYCLIA [id number] [place] [address] [place] Chloride [Moles/Vol] 97 mmol/L Normal 97-105 [facility] Comment on above: Order Comment: Speci men Type: BLOOD SPECIMENOrdering Facility: [facility] Address: [address] [address] Performed By: #### 2 4321-2, , 2776-05 ####[facility] LABORATORYCLIA [id number] [place] [address] [place] CO2 [Moles/Vol] 27 mmol/L Normal 22-30 [facility] Comment on above: Order Comment: Speci men Type: BLOOD SPECIMENOrdering Facility: [facility] Address: [address] [place] [address] Performed By: #### 2 4321-2, 51298-9, 2776-05 ####[facility] CAR[facility]ELCL[facility] [id number] [address] [facility] Creatinine [Mass/Vol] 0.63 mg/dL Low 0.73-1.22 [facility] Comment on above: Order Comment: Speci men Type: BLOOD SPECIMENOrdering Facility: [facility] Address: [address] [address] Performed By: #### 2 4321-2, , 2776-05 ####[facility] CARMELCLIA [id number] [address] [facility] ESTIMATED GLOMERULAR FILTRATION RATE 103 mL/min/1.73m??? Normal >=60 [facility] Comment on above: Order Comment: Speccara feldman Type: BLOOD SPECIMENOrdering Facility: [facility] Address: [address] [address] Result Comment: Luzmaria mated Glomerular Filtration Rate [...] Performed By: #### 2 4321-2, , 2776-05 ####[facility] LABORATORYCLIA [id number] [address] [place] Glucose [Mass/Vol] 136 mg/dL High 74-99 [facility] Comment on above: Order Comment: Speci men Type: BLOOD SPECIMENOrdering Facility: [facility] Address: [address] Result Comment: The [place] Diabetes Association (ADA) provides guidance for cutoff [...] Standards of Medical Care in Diabetes 2016, [place] Diabetes Association. Diabetes Care. 2016.39(Suppl 1). Performed By: #### 2 4321-2, , 2776-05 ####[facility] LABORATORYCLIA [id number] [place] [address] [place] Potassium [Moles/Vol] 4.1 mmol/L Normal 3.7-5.1 [facility] Comment on above: Order Comment: Shira feldman Type: BLOOD SPECIMENOrdering Facility: [facility] Address: [address] [place] [address] Performed By: #### 2 4321-2, , 2776-05 ####[facility] LABORATORYCLIA [id number] [place] [address] [place] Sodium [Moles/Vol] 133 mmol/L Low 136-144 [facility] Comment on above: Order Comment: Shira feldman Type: BLOOD SPECIMENOrdering Facility: [facility] Address: [address] [place] [address] Performed By: #### 2 4321-2, , 2776-05 ####[facility] LABORATORYCLIA [id number] [place] [address] [place] Urea nitrogen [Mass/Vol] 40 mg/dL High 9-24 [facility] Comment on above: Order Comment: Johni franica Type: BLOOD SPECIMENOrdering Facility: [facility] Address: [address] [place] [address] Performed By: #### 2 4321-2, , 2776-05 ####[facility] LABORATORYCLIA [id number] [place] [id number] [place] CASE MANAGEMon 08-03-2021 CASE MANAGEM Normal [facility] CBC W Auto Differential pane l (Bld)on 08-03-2021 Basophils (Bld) [#/Vol] 0.06 10*3/uL Normal <0.11 [facility] Comment on above: Order Comment: Speci men Type: BLOOD SPECIMENOrdering Facility: [facility] Address: [address] [place] [address] Performed By: #### 5 7021-8 ####[facility] LABORATORYCLIA [id number] [address] [place] Basophils/100 WBC (Bld) 0.5 % Normal [facility] Comment on above: Order Comment: Speci men Type: BLOOD SPECIMENOrdering Facility: [facility] Address: [address] [place] [address] Performed By: #### 5 7021-8 ####[facility] LABORATORYCLIA [id number] [address] [facility] Differential cell count method Nom (Bld) Auto Normal [facility] Comment on above: Order Comment: Speci men Type: BLOOD SPECIMENOrdering Facility: [facility] Address: [address] [place] [address] Performed By: #### 5 7021-8 ####[facility] LABORATORYCLIA [id number] [place] [address] [place] Eosinophils (Bld) [#/Vol] 0.23 10*3/uL Normal <0.46 [facility] Comment on above: Order Comment: Speci men Type: BLOOD SPECIMENOrdering Facility: [facility] Address: [address] [place] [address] Performed By: #### 5 7021-8 ####[facility] LABORATORYCLIA [id number] [address] [place] Eosinophils/100 WBC (Bld) 1.8 % Normal [facility] Comment on above: Order Comment: Speci men Type: BLOOD SPECIMENOrdering Facility: [facility] Address: [address] [place] [address] Performed By: #### 5 7021-8 ####[facility] LABORATORYCLIA [id number] [address] Erythrocyte distribution width (RBC) [Ratio] 17.6 % High 11.5-15.0 [facility] Comment on above: Order Comment: Speci men Type: BLOOD SPECIMENOrdering Facility: [facility] Address: [address] [place] [address] Performed By: #### 5 7021-8 ####[facility] LABORATORYCLIA [id number] [address] Hematocrit (Bld) [Volume fraction] 30.7 % Low 39.0-51.0 [facility] Comment on above: Order Comment: Speci men Type: BLOOD SPECIMENOrdering Facility: [facility] Address: [address] [place] [address] Performed By: #### 5 7021-8 ####[facility] LABORATORYCLIA [id number] [address] Hemoglobin (Bld) [Mass/Vol] 9.3 g/dL Low 13.0-17.0 [facility] Comment on above: Order Comment: Speci men Type: BLOOD SPECIMENOrdering Facility: [facility] Address: [address] [place] [address] Performed By: #### 5 7021-8 ####[facility] LABORATORYCLIA [id number] [address] IMMATURE GRAN % 0.6 % Normal [facility] Comment on above: Order Comment: Speci men Type: BLOOD SPECIMENOrdering Facility: [facility] Address: [address] [place] [address] Performed By: #### 5 7021-8 ####[facility] LABORATORYCLIA [id number] [address] IMMATURE GRAN ABS 0.08 k/uL Normal <0.10 [facility] Comment on above: Order Comment: Speci men Type: BLOOD SPECIMENOrdering Facility: [facility] Address: [address] [place] [address] Performed By: #### 5 7021-8 ####[facility] LABORATORYCLIA [id number] [address] [facility] Lymphocytes (Bld) [#/Vol] 2.45 10*3/uL Normal 1.00-4.00 [facility] Comment on above: Order Comment: Speci men Type: BLOOD SPECIMENOrdering Facility: [facility] Address: [address] [place] [address] Performed By: #### 5 7021-8 ####[facility] LABORATORYCLIA [id number] [address] Lymphocytes/100 WBC (Bld) 19.7 % Normal [facility] Comment on above: Order Comment: Speci men Type: BLOOD SPECIMENOrdering Facility: [facility] Address: [address] [place] [address] Performed By: #### 5 7021-8 ####[facility] LABORATORYCLIA [id number] [address] [facility] MCH (RBC) [Entitic mass] 28.2 pg Normal 26.0-34.0 [facility] Comment on above: Order Comment: Speci men Type: BLOOD SPECIMENOrdering Facility: [facility] Address: [address] [place] [address] Performed By: #### 5 7021-8 ####[facility] LABORATORYCLIA [id number] [address] [facility] MCHC (RBC) [Mass/Vol] 30.3 g/dL Low 30.5-36.0 [facility] Comment on above: Order Comment: Speci men Type: BLOOD SPECIMENOrdering Facility: [facility] Address: [address] [place] [address] Performed By: #### 5 7021-8 ####[facility] LABORATORYCLIA [id number] [address] MCV (RBC) [Entitic vol] 93.0 fL Normal 80.0-100.0 [facility] Comment on above: Order Comment: Speci men Type: BLOOD SPECIMENOrdering Facility: [facility] Address: [address] [place] [address] Performed By: #### 5 7021-8 ####[facility]ORATORYCLIA [id number] [address] [place] Monocytes (Bld) [#/Vol] 0.72 10*3/uL Normal <0.87 [facility] Comment on above: Order Comment: Speci men Type: BLOOD SPECIMENOrdering Facility: [facility] Address: [address] [place] [address] Performed By: #### 5 7021-8 ####[facility] LABORATORYCLIA [id number] [address] [place] Monocytes/100 WBC (Bld) 5.8 % Normal [facility] Comment on above: Order Comment: Speci men Type: BLOOD SPECIMENOrdering Facility: [facility] Address: [address] [place] [address] Performed By: #### 5 7021-8 ####[facility] LABORATORYCLIA [id number] [address] [place] Neutrophils (Bld) [#/Vol] 8.92 10*3/uL High 1.45-7.50 [facility] Comment on above: Order Comment: Speci men Type: BLOOD SPECIMENOrdering Facility: [facility] Address: [address] [place] [address] Performed By: #### 5 7021-8 ####[facility] LABORATORYCLIA [id number] [address] [place] Neutrophils/100 WBC (Bld) 71.6 % Normal [facility] Comment on above: Order Comment: Speci men Type: BLOOD SPECIMENOrdering Facility: [facility] Address: [address] [place] [address] Performed By: #### 5 7021-8 ####[facility] LABORATORYCLIA [id number] [address] [place] Nucleated RBC (Bld) [#/Vol] 10*3/uL Normal <0.01 [facility] Comment on above: Order Comment: Speci men Type: BLOOD SPECIMENOrdering Facility: [facility] Address: [address] [place] [address] Performed By: #### 5 7021-8 ####[facility] LABORATORYCLIA [id number] [address] [place] Nucleated RBC/100 WBC (Bld) [Ratio] 0.0 /100 WBC Normal [facility] Comment on above: Order Comment: Speci men Type: BLOOD SPECIMENOrdering Facility: [facility] Address: [address] [place] [address] Performed By: #### 5 7021-8 ####[facility] LABORATORYCLIA [id number] [address] [place] Platelet mean volume (Bld) [Entitic vol] 10.2 fL Normal 9.0-12.7 [facility] Comment on above: Order Comment: Speci men Type: BLOOD SPECIMENOrdering Facility: [facility] Address: [address] [place] [address] Performed By: #### 5 7021-8 ####[facility] LABORATORYCLIA [id number] [address] [place] Platelets (Bld) [#/Vol] 352 10*3/uL Normal 150-400 [facility] Comment on above: Order Comment: Speci men Type: BLOOD SPECIMENOrdering Facility: [facility] Address: [address] [place] [address] Performed By: #### 5 7021-8 ####[facility] LABORATORYCLIA [id number] [address] [place] RBC (Bld) [#/Vol] 3.30 10*6/uL Low 4.20-6.00 [facility] Comment on above: Order Comment: Speci men Type: BLOOD SPECIMENOrdering Facility: [facility] Address: [address] [place] [address] Performed By: #### 5 7021-8 ####[facility] LABORATORYCLIA [id number] [address] WBC (Bld) [#/Vol] 12.46 10*3/uL High 3.70-11.00 [facility] Comment on above: Order Comment: Speci men Type: BLOOD SPECIMENOrdering Facility: [facility] Address: [address] [place] [address] Performed By: #### 5 7021-8 ####[facility] LABORATORYCLIA [id number] [address] CONSULT PROGon 08-03-2021 CONSULT PROG Normal [facility] Magnesium SerPl-ncon 08-03 Magnesium [Mass/Vol] 2.2 mg/dL Normal 1.7-2.3 [facility] Comment on above: Order Comment: Speci men Type: BLOOD SPECIMENOrdering Facility: [facility] Address: [address] [place] [address] Performed By: #### 2 4321-2, , 2776-05 ####[facility] LABORATORYCLIA [id number] [address] NURSING PROGon 08-03-2021 NURSING PROG Normal [facility] Phosphate SerPl-mCncon 08-03 Phosphate [Mass/Vol] 4.2 mg/dL Normal 2.7-4.8 [facility] Comment on above: Order Comment: Speci men Type: BLOOD SPECIMENOrdering Facility: [facility] Address: [address] [place] [address] Performed By: #### 2 4321-2, 97855-3, 2777- ####[facility] LABORATORYCLIA [id number] [address] [place] aPTT PPPon 08-03-2021 aPTT Coag (PPP) [Time] 50.0 s High 23.0-32.4 [facility] Comment on above: Order Comment: Speci men Type: BLOOD SPECIMENOrdering Facility: [facility] Address: [address] [place] [address] Performed By: #### 1 4979-9 ####[facility] LABORATORYCLIA [id number] [place] [address] [place] [address] [facility] CBC W Auto Differential pane l (Bld)on 08-02-2021 Basophils (Bld) [#/Vol] 10*3/uL Normal <0.11 [facility] Comment on above: Order Comment: Speci men Type: BLOOD SPECIMENOrdering Facility: [facility] Address: [address] [place] [address] Performed By: #### 5 7021-8 ####[facility] LABORATORYCLIA [id number] [place] [address] [place] Basophils/100 WBC (Bld) 0.2 % Normal [facility] Comment on above: Order Comment: Speci men Type: BLOOD SPECIMENOrdering Facility: [facility] Address: [address] [place] [address] Performed By: #### 5 7021-8 ####[facility] LABORATORYCLIA [id number] [address] STATES [facility] Differential cell count method Nom (Bld) Auto Normal [facility] Comment on above: Order Comment: Speci men Type: BLOOD SPECIMENOrdering Facility: [facility] Address: [address] [place] [address] Performed By: #### 5 7021-8 ####[facility] LABORATORYCLIA [id number] [place] [address] [place] Eosinophils (Bld) [#/Vol] 10*3/uL Normal <0.46 [facility] Comment on above: Order Comment: Speci men Type: BLOOD SPECIMENOrdering Facility: [facility] Address: [address] [place] [address] Performed By: #### 5 7021-8 ####[facility]ORATORYCLIA [id number] [address] [place] Eosinophils/100 WBC (Bld) 0.0 % Normal [facility] Comment on above: Order Comment: Speci men Type: BLOOD SPECIMENOrdering Facility: [facility] Address: [address] [place] [address] Performed By: #### 5 7021-8 ####[facility] LABORATORYCLIA [id number] [address] Erythrocyte distribution width (RBC) [Ratio] 17.3 % High 11.5-15.0 [facility] Comment on above: Order Comment: Speci men Type: BLOOD SPECIMENOrdering Facility: [facility] Address: [address] [place] [address] Performed By: #### 5 7021-8 ####[facility] LABORATORYCLIA [id number] [address] Hematocrit (Bld) [Volume fraction] 30.8 % Low 39.0-51.0 [facility] Comment on above: Order Comment: Speci men Type: BLOOD SPECIMENOrdering Facility: [facility] Address: [address] [place] [address] Performed By: #### 5 7021-8 ####[facility] LABORATORYCLIA [id number] [address] [place] Hemoglobin (Bld) [Mass/Vol] 9.7 g/dL Low 13.0-17.0 [facility] Comment on above: Order Comment: Speci men Type: BLOOD SPECIMENOrdering Facility: [facility] Address: [address] [place] [address] Performed By: #### 5 7021-8 ####[facility] LABORATORYCLIA [id number] [address] IMMATURE GRAN % 0.5 % Normal [facility] Comment on above: Order Comment: Speci men Type: BLOOD SPECIMENOrdering Facility: [facility] Address: [address] [address] Performed By: #### 5 7021-8 ####[facility] LABORATORYCLIA [id number] [address] IMMATURE GRAN ABS 0.07 k/uL Normal <0.10 [facility] Comment on above: Order Comment: Speci men Type: BLOOD SPECIMENOrdering Facility: [facility] Address: [address] [place] [address] Performed By: #### 5 7021-8 ####[facility] LABORATORYCLIA [id number] [address] Lymphocytes (Bld) [#/Vol] 1.60 10*3/uL Normal 1.00-4.00 [facility] Comment on above: Order Comment: Speci men Type: BLOOD SPECIMENOrdering Facility: [facility] Address: [address] [place] [address] Performed By: #### 5 7021-8 ####[facility] LABORATORYCLIA [id number] [address] Lymphocytes/100 WBC (Bld) 12.1 % Normal [facility] Comment on above: Order Comment: Speci men Type: BLOOD SPECIMENOrdering Facility: [facility] Address: [address] [place] [address] Performed By: #### 5 7021-8 ####[facility] LABORATORYCLIA [id number] [address] MCH (RBC) [Entitic mass] 28.6 pg Normal 26.0-34.0 [facility] Comment on above: Order Comment: Speci men Type: BLOOD SPECIMENOrdering Facility: [facility] Address: [address] [place] [address] Performed By: #### 5 7021-8 ####[facility] LABORATORYCLIA [id number] [address] [place] MCHC (RBC) [Mass/Vol] 31.5 g/dL Normal 30.5-36.0 [facility] Comment on above: Order Comment: Speci men Type: BLOOD SPECIMENOrdering Facility: [facility] Address: [address] [place] [address] Performed By: #### 5 7021-8 ####[facility] LABORATORYCLIA [id number] [address] [place] MCV (RBC) [Entitic vol] 90.9 fL Normal 80.0-100.0 [facility] Comment on above: Order Comment: Speci men Type: BLOOD SPECIMENOrdering Facility: [facility] Address: [address] [place] [address] Performed By: #### 5 7021-8 ####[facility] LABORATORYCLIA [id number] [address] [place] Monocytes (Bld) [#/Vol] 0.39 10*3/uL Normal <0.87 [facility] Comment on above: Order Comment: Speci men Type: BLOOD SPECIMENOrdering Facility: [facility] Address: [address] [place] [address] Performed By: #### 5 7021-8 ####[facility] LABORATORYCLIA [id number] [address] [place] Monocytes/100 WBC (Bld) 3.0 % Normal [facility] Comment on above: Order Comment: Speci men Type: BLOOD SPECIMENOrdering Facility: [facility] Address: [address] [place] [address] Performed By: #### 5 7021-8 ####[facility] LABORATORYCLIA [id number] [address] [place] Neutrophils (Bld) [#/Vol] 11.09 10*3/uL High 1.45-7.50 [facility] Comment on above: Order Comment: Speci men Type: BLOOD SPECIMENOrdering Facility: [facility] Address: [address] [place] [address] Performed By: #### 5 7021-8 ####[facility] LABORATORYCLIA [id number] [address] [place] Neutrophils/100 WBC (Bld) 84.2 % Normal [facility] Comment on above: Order Comment: Speci men Type: BLOOD SPECIMENOrdering Facility: [facility] Address: [address] [address] Performed By: #### 5 7021-8 ####[facility] LABORATORYCLIA [id number] [address] [place] Nucleated RBC (Bld) [#/Vol] 10*3/uL Normal <0.01 [facility] Comment on above: Order Comment: Speci men Type: BLOOD SPECIMENOrdering Facility: [facility] Address: [address] [place] [address] Performed By: #### 5 7021-8 ####[facility] SERVICES LABORATORYCLIA [id number] [address] OF [facility] Nucleated RBC/100 WBC (Bld) [Ratio] 0.0 /100 WBC Normal [facility] Comment on above: Order Comment: Speci men Type: BLOOD SPECIMENOrdering Facility: [facility] Address: [address] [place] [address] Performed By: #### 5 7021-8 ####[facility] LABORATORYCLIA [id number] [address] [place] Platelet mean volume (Bld) [Entitic vol] 10.0 fL Normal 9.0-12.7 [facility] Comment on above: Order Comment: Speci men Type: BLOOD SPECIMENOrdering Facility: [facility] Address: [address] [address] Performed By: #### 5 7021-8 ####[facility] LABORATORYCLIA [id number] [place] [address] [place] Platelets (Bld) [#/Vol] 358 10*3/uL Normal 150-400 [facility] Comment on above: Order Comment: Speci men Type: BLOOD SPECIMENOrdering Facility: [facility] Address: [address] [place] [address] Performed By: #### 5 7021-8 ####[facility] LABORATORYCLIA [id number] [address] RBC (Bld) [#/Vol] 3.39 10*6/uL Low 4.20-6.00 [facility] Comment on above: Order Comment: Speci men Type: BLOOD SPECIMENOrdering Facility: [facility] Address: [address] [place] [address] Performed By: #### 5 7021-8 ####[facility] LABORATORYCLIA [id number] [address] WBC (Bld) [#/Vol] 13.17 10*3/uL High 3.70-11.00 [facility] Comment on above: Order Comment: Speci men Type: BLOOD SPECIMENOrdering Facility: [facility] Address: [address] [place] [address] Performed By: #### 5 7021-8 ####[facility] LABORATORYCLIA [id number] [address] [facility] NURSING PROGon 08-02-2021 NURSING PROG Normal [facility] THERAPY NTon 08-02-2021 THERAPY NT Normal [facility] aPTT PPPon 08-02-2021 aPTT Coag (PPP) [Time] 54.9 s High 23.0-32.4 [facility] Comment on above: Order Comment: Speci men Type: BLOOD SPECIMENOrdering Facility: [facility] Address: [address] [place] [address] Performed By: #### 1 4979-9 ####[facility] LABORATORYCLIA [id number] [address] [place] ALLIED HEALTHon 08-01-2021 ALLIED HEALTH Normal [facility] ALLIED HEALTH Normal [facility] Basic metabolic 2000 panelon 08-01-2021 Anion gap [Moles/Vol] 12 mmol/L Normal 9-18 [facility] Comment on above: Order Comment: Speci men Type: BLOOD SPECIMENOrdering Facility: [facility] Address: [address] [place] [address] Performed By: #### 2 4321-2, 97266-2, 27207-6, 2777- ####[facility] LABORATORYCLIA [id number] [place] [address] [place] Calcium [Mass/Vol] 9.1 mg/dL Normal 8.5-10.2 [facility] Comment on above: Order Comment: Speci men Type: BLOOD SPECIMENOrdering Facility: [facility] Address: [address] [place] [address] Performed By: #### 2 4321-2, 90155-2, 21393-0, 2777-1 ####[facility] LABORATORYCLIA [id number] [place] [address] [place] Chloride [Moles/Vol] 96 mmol/L Low 97-105 [facility] Comment on above: Order Comment: Speci men Type: BLOOD SPECIMENOrdering Facility: [facility] Address: [address] [place] [address] Performed By: #### 2 4321-2, 36239-6, 38128-1, 2777-1 ####[facility] LABORATORYCLIA [id number] [place] [address] [place] CO2 [Moles/Vol] 27 mmol/L Normal 22-30 [facility] Comment on above: Order Comment: Speci men Type: BLOOD SPECIMENOrdering Facility: [facility] Address: [address] [place] [address] Performed By: #### 2 4321-2, 02192-3, 02439-9, 2777-1 ####[facility] LABORATORYCLIA [id number] [place] [address] [place] Creatinine [Mass/Vol] 0.64 mg/dL Low 0.73-1.22 [facility] Comment on above: Order Comment: Speci men Type: BLOOD SPECIMENOrdering Facility: [facility] Address: [address] [place] [phone] Performed By: #### 2 4321-2, 63445-4, 76543-4, 2777-1 ####[facility]ITALIA [id number] [address] [facility] ESTIMATED GLOMERULAR FILTRATION RATE 102 mL/min/1.73m??? Normal >=60 [facility] Comment on above: Order Comment: Shira feldman Type: BLOOD SPECIMENOrdering Facility: [facility] Address: [address] Result Comment: Luzmaria mated Glomerular Filtration [...] actual GFR. Performed By: #### 2 4321-2, 79860-1, 27026-0, 2777-1 ####[facility] HOSPITALIA [id number] [place] [address] [place] Glucose [Mass/Vol] 122 mg/dL High 74-99 [facility] Comment on above: Order Comment: Shira feldman Type: BLOOD SPECIMENOrdering Facility: [facility] Address: [address] [place] [address] Result Comment: The [place] Diabetes Association (ADA) provides guidance for cutoff [...] Standards of Medical Care in Diabetes 2016, [place] Diabetes Association. Diabetes Care. 2016.39(Suppl 1). Performed By: #### 2 4321-2, 37399-8, 81723-1, 2777-1 ####[facility] LABORATORYCLIA [id number] [place] [address] [place] Potassium [Moles/Vol] 4.2 mmol/L Normal 3.7-5.1 [facility] Comment on above: Order Comment: Speci men Type: BLOOD SPECIMENOrdering Facility: [facility] Address: [address] [place] [address] Performed By: #### 2 4321-2, 56943-8, 48065-2, 2777-1 ####[facility] LABORATORYCLIA [id number] [address] [place] [facility] Sodium [Moles/Vol] 135 mmol/L Low 136-144 [facility] Comment on above: Order Comment: Speci men Type: BLOOD SPECIMENOrdering Facility: [facility] Address: [address] [place] [address] Performed By: #### 2 4321-2, 09386-2, 34379-1, 2777-1 ####[facility] LABORATORYCLIA [id number] [place] [address] [place] Urea nitrogen [Mass/Vol] 36 mg/dL High 9-24 [facility] Comment on above: Order Comment: Speci men Type: BLOOD SPECIMENOrdering Facility: [facility] Address: [address] [place] [address] Performed By: #### 2 4321-2, 32058-7, 38532-3, 2777-1 ####[facility] LABORATORYCLIA [id number] [address] STATES [place] CASE MANAGEMon 08-01-2021 CASE MANAGEM Normal [facility] CBC W Auto Differential pane l (Bld)on 08-01-2021 Basophils (Bld) [#/Vol] 0.04 10*3/uL Normal <0.11 [facility] Comment on above: Order Comment: Speci men Type: BLOOD SPECIMENOrdering Facility: [facility] Address: [address] [place] [address] Performed By: #### 5 7021-8 ####[facility] LABORATORYCLIA [id number] [address] Basophils/100 WBC (Bld) 0.3 % Normal [facility] Comment on above: Order Comment: Speci men Type: BLOOD SPECIMENOrdering Facility: [facility] Address: [address] [place] [address] Performed By: #### 5 7021-8 ####[facility] LABORATORYCLIA [id number] [address] OF [place] Differential cell count method Nom (Bld) Auto Normal [facility] Comment on above: Order Comment: Speci men Type: BLOOD SPECIMENOrdering Facility: [facility] Address: [address] [place] [address] Performed By: #### 5 7021-8 ####[facility] LABORATORYCLIA [id number] [address] [place] Eosinophils (Bld) [#/Vol] 0.37 10*3/uL Normal <0.46 [facility] Comment on above: Order Comment: Speci men Type: BLOOD SPECIMENOrdering Facility: [facility] Address: [address] [place] [address] Performed By: #### 5 7021-8 ####[facility] LABORATORYCLIA [id number] [address] [place] Eosinophils/100 WBC (Bld) 3.1 % Normal [facility] Comment on above: Order Comment: Speci men Type: BLOOD SPECIMENOrdering Facility: [facility] Address: [address] [place] [address] Performed By: #### 5 7021-8 ####[facility] LABORATORYCLIA [id number] [address] [place] Erythrocyte distribution width (RBC) [Ratio] 17.5 % High 11.5-15.0 [facility] Comment on above: Order Comment: Speci men Type: BLOOD SPECIMENOrdering Facility: [facility] Address: [address] [place] [address] Performed By: #### 5 7021-8 ####[facility] LABORATORYCLIA [id number] [address] Hematocrit (Bld) [Volume fraction] 30.1 % Low 39.0-51.0 [facility] Comment on above: Order Comment: Speci men Type: BLOOD SPECIMENOrdering Facility: [facility] Address: [address] [place] [address] Performed By: #### 5 7021-8 ####[facility] LABORATORYCLIA [id number] [address] Hemoglobin (Bld) [Mass/Vol] 9.1 g/dL Low 13.0-17.0 [facility] Comment on above: Order Comment: Speci men Type: BLOOD SPECIMENOrdering Facility: [facility] Address: [address] [place] [address] Performed By: #### 5 7021-8 ####[facility] LABORATORYCLIA [id number] [address] IMMATURE GRAN % 0.6 % Normal [facility] Comment on above: Order Comment: Speci men Type: BLOOD SPECIMENOrdering Facility: [facility] Address: [address] [place] [address] Performed By: #### 5 7021-8 ####[facility] LABORATORYCLIA [id number] [address] IMMATURE GRAN ABS 0.07 k/uL Normal <0.10 [facility] Comment on above: Order Comment: Speci men Type: BLOOD SPECIMENOrdering Facility: [facility] Address: [address] [place] [address] Performed By: #### 5 7021-8 ####[facility] LABORATORYCLIA [id number] [address] [facility] Lymphocytes (Bld) [#/Vol] 2.05 10*3/uL Normal 1.00-4.00 [facility] Comment on above: Order Comment: Speci men Type: BLOOD SPECIMENOrdering Facility: [facility] Address: [address] [place] [address] Performed By: #### 5 7021-8 ####[facility] LABORATORYCLIA [id number] [address] Lymphocytes/100 WBC (Bld) 17.1 % Normal [facility] Comment on above: Order Comment: Speci men Type: BLOOD SPECIMENOrdering Facility: [facility] Address: [address] [place] [address] Performed By: #### 5 7021-8 ####[facility] LABORATORYCLIA [id number] [address] MCH (RBC) [Entitic mass] 27.7 pg Normal 26.0-34.0 [facility] Comment on above: Order Comment: Speci men Type: BLOOD SPECIMENOrdering Facility: [facility] Address: [address] [place] [address] Performed By: #### 5 7021-8 ####[facility] LABORATORYCLIA [id number] [address] MCHC (RBC) [Mass/Vol] 30.2 g/dL Low 30.5-36.0 [facility] Comment on above: Order Comment: Speci men Type: BLOOD SPECIMENOrdering Facility: [facility] Address: [address] [place] [address] Performed By: #### 5 7021-8 ####[facility] LABORATORYCLIA [id number] [address] STATES [facility] MCV (RBC) [Entitic vol] 91.5 fL Normal 80.0-100.0 [facility] Comment on above: Order Comment: Speci men Type: BLOOD SPECIMENOrdering Facility: [facility] Address: [address] [place] [address] Performed By: #### 5 7021-8 ####[facility] LABORATORYCLIA [id number] [address] [place] Monocytes (Bld) [#/Vol] 0.53 10*3/uL Normal <0.87 [facility] Comment on above: Order Comment: Speci men Type: BLOOD SPECIMENOrdering Facility: [facility] Address: [address] [place] [address] Performed By: #### 5 7021-8 ####[facility] LABORATORYCLIA [id number] [address] [place] Monocytes/100 WBC (Bld) 4.4 % Normal [facility] Comment on above: Order Comment: Speci men Type: BLOOD SPECIMENOrdering Facility: [facility] Address: [address] [place] [address] Performed By: #### 5 7021-8 ####[facility] LABORATORYCLIA [id number] [address] [place] Neutrophils (Bld) [#/Vol] 8.91 10*3/uL High 1.45-7.50 [facility] Comment on above: Order Comment: Speci men Type: BLOOD SPECIMENOrdering Facility: [facility] Address: [address] [place] [address] Performed By: #### 5 7021-8 ####[facility] LABORATORYCLIA [id number] [address] [place] Neutrophils/100 WBC (Bld) 74.5 % Normal [facility] Comment on above: Order Comment: Speci men Type: BLOOD SPECIMENOrdering Facility: [facility] Address: [address] [place] [address] Performed By: #### 5 7021-8 ####[facility] LABORATORYCLIA [id number] [address] [place] Nucleated RBC (Bld) [#/Vol] 10*3/uL Normal <0.01 [facility] Comment on above: Order Comment: Speci men Type: BLOOD SPECIMENOrdering Facility: [facility] Address: [address] [place], [place] [id number] Performed By: #### 5 7021-8 ####[facility] LABORATORYCLIA [id number] [address] Nucleated RBC/100 WBC (Bld) [Ratio] 0.0 /100 WBC Normal [facility] Comment on above: Order Comment: Speci men Type: BLOOD SPECIMENOrdering Facility: [facility] Address: [address] [place] [address] Performed By: #### 5 7021-8 ####[facility] LABORATORYCLIA [id number] [address] [place] Platelet mean volume (Bld) [Entitic vol] 10.4 fL Normal 9.0-12.7 [facility] Comment on above: Order Comment: Speci men Type: BLOOD SPECIMENOrdering Facility: [facility] Address: [address] [place] [address] Performed By: #### 5 7021-8 ####[facility] LABORATORYCLIA [id number] [address] [place] Platelets (Bld) [#/Vol] 319 10*3/uL Normal 150-400 [facility] Comment on above: Order Comment: Speci men Type: BLOOD SPECIMENOrdering Facility: [facility] Address: [address] [place] [address] Performed By: #### 5 7021-8 ####[facility] LABORATORYCLIA [id number] [address] [place] RBC (Bld) [#/Vol] 3.29 10*6/uL Low 4.20-6.00 [facility] Comment on above: Order Comment: Speci men Type: BLOOD SPECIMENOrdering Facility: [facility] Address: [address] [place] [address] Performed By: #### 5 7021-8 ####[facility] LABORATORYCLIA [id number] [address] [place] WBC (Bld) [#/Vol] 11.97 10*3/uL High 3.70-11.00 [facility] Comment on above: Order Comment: Speci men Type: BLOOD SPECIMENOrdering Facility: [facility] Address: [address] [place] [address] Performed By: #### 5 7021-8 ####[facility] LABORATORYCLIA [id number] [address] [place] CT BRAIN WO IVCONon 08-02-19 CT BRAIN WO IVCON Normal [facility] Magnesium SerPl-mCncon 08-01 Magnesium [Mass/Vol] 2.4 mg/dL High 1.7-2.3 [facility] Comment on above: Order Comment: Speci men Type: BLOOD SPECIMENOrdering Facility: [facility] Address: [address] [place] [address] Performed By: #### 2 4321-2, 48875-0, 20321-3, 2777-1 ####[facility] LABORATORYCLIA [id number] [place] [address] [place] NURSING PROGon 08-01-2021 NURSING PROG Normal [facility] NUTRITIONon 08-01-2021 NUTRITION Normal [facility] Phosphate SerPl-mCncon 08-01 Phosphate [Mass/Vol] 3.3 mg/dL Normal 2.7-4.8 [facility] Comment on above: Order Comment: Speci men Type: BLOOD SPECIMENOrdering Facility: [facility] Address: [address] [place] [address] Performed By: #### 2 4321-2, 48020-2, 51711-2, 2777-1 ####[facility] LABORATORYCLIA [id number] [place] [address] [place] Prealbumin [Mass/Vol]on 07-06 Prealbumin Nephelometry [Mass/Vol] 30 mg/dL Normal 17-36 [facility] Comment on above: Order Comment: Speci men Type: BLOOD SPECIMENOrdering Facility: [facility] Address: [address] [place], [place] [phone] Performed By: #### 2 4321-2, 70668-8, 62003-0, 2777-1 ####[facility] LABORATORYCLIA [id number] [address] [place] THERAPY NTon 08-01-2021 THERAPY NT Normal [facility] THERAPY NT Normal [facility] TYPE AND SCREENon 08-01-2021 ABO O Normal [facility] Comment on above: Order Comment: Speci men Type: BLOOD SPECIMENOrdering Facility: [facility] Address: [address] [place] [address] Performed By: #### T SCR ####[facility] BLOOD BANKCLIA [id number] [address] HISTORICAL AB SCR STATUS Negative [facility] Comment on above: Order Comment: Speci men Type: BLOOD SPECIMENOrdering Facility: [facility] Address: [address] [place] [address] Performed By: #### T SCR ####[facility] BLOOD BANKCLIA [id number] [address] Rh Nom (Bld) Positive Normal [facility] Comment on above: Order Comment: Speci men Type: BLOOD SPECIMENOrdering Facility: [facility] Address: [address] [place] [address] Performed By: #### T SCR ####[facility] BLOOD BANKCLIA [id number] [address] TYPE AND SCREEN EXPIRATION 08/04/2021 23:59 Normal [facility] Comment on above: Order Comment: Speci men Type: BLOOD SPECIMENOrdering Facility: [facility] Address: [address] [place] [address] Performed By: #### T SCR ####[facility] BLOOD BANKCLIA [id number] [address] [place] XR CHEST 1V FRONTALon 2021 XR CHEST 1V FRONTAL Normal [facility] aPTT PPPon 08-01-2021 aPTT Coag (PPP) [Time] 50.9 s High 23.0-32.4 [facility] Comment on above: Order Comment: Speci men Type: BLOOD SPECIMENOrdering Facility: [facility] Address: [address] [place] [address] Performed By: #### 1 4979-9 ####[facility] LABORATORYCLIA [id number] [address] [place] OF [facility] CBC W Auto Differential pane l (Bld)on 07-31-2021 Basophils (Bld) [#/Vol] 0.05 10*3/uL Normal <0.11 [facility] Comment on above: Order Comment: Speci men Type: BLOOD SPECIMENOrdering Facility: [facility] Address: [address] [place] [address] Performed By: #### 5 7021-8 ####[facility] LABORATORYCLIA [id number] [address] [place] OF [facility] Basophils/100 WBC (Bld) 0.4 % Normal [facility] Comment on above: Order Comment: Speci men Type: BLOOD SPECIMENOrdering Facility: [facility] Address: [address] [place] [address] Performed By: #### 5 7021-8 ####[facility] LABORATORYCLIA [id number] [address] Differential cell count method Nom (Bld) Auto Normal [facility] Comment on above: Order Comment: Speci men Type: BLOOD SPECIMENOrdering Facility: [facility] Address: [address] [place] [address] Performed By: #### 5 7021-8 ####[facility] LABORATORYCLIA [id number] [place] [address] [place] Eosinophils (Bld) [#/Vol] 0.51 10*3/uL High <0.46 [facility] Comment on above: Order Comment: Speci men Type: BLOOD SPECIMENOrdering Facility: [facility] Address: [address] [address] Performed By: #### 5 7021-8 ####[facility] LABORATORYCLIA [id number] [address] Eosinophils/100 WBC (Bld) 4.5 % Normal [facility] Comment on above: Order Comment: Speci men Type: BLOOD SPECIMENOrdering Facility: [facility] Address: [address] [place] [address] Performed By: #### 5 7021-8 ####[facility] LABORATORYCLIA [id number] [address] Erythrocyte distribution width (RBC) [Ratio] 17.5 % High 11.5-15.0 [facility] Comment on above: Order Comment: Speci men Type: BLOOD SPECIMENOrdering Facility: [facility] Address: [address] [place] [address] Performed By: #### 5 7021-8 ####[facility] LABORATORYCLIA [id number] [address] Hematocrit (Bld) [Volume fraction] 30.4 % Low 39.0-51.0 [facility] Comment on above: Order Comment: Speci men Type: BLOOD SPECIMENOrdering Facility: [facility] Address: [address] [place] [address] Performed By: #### 5 7021-8 ####[facility] LABORATORYCLIA [id number] [address] [place] Hemoglobin (Bld) [Mass/Vol] 9.2 g/dL Low 13.0-17.0 [facility] Comment on above: Order Comment: Speci men Type: BLOOD SPECIMENOrdering Facility: [facility] Address: [address] [place] [address] Performed By: #### 5 7021-8 ####[facility]ORATORYCLIA [id number] [address] [place] IMMATURE GRAN % 0.5 % Normal [facility] Comment on above: Order Comment: Speci men Type: BLOOD SPECIMENOrdering Facility: [facility] Address: [address] [place] [address] Performed By: #### 5 7021-8 ####[facility] LABORATORYCLIA [id number] [address] IMMATURE GRAN ABS 0.06 k/uL Normal <0.10 [facility] Comment on above: Order Comment: Speci men Type: BLOOD SPECIMENOrdering Facility: [facility] Address: [address] [place] [address] Performed By: #### 5 7021-8 ####[facility] LABORATORYCLIA [id number] [address] Lymphocytes (Bld) [#/Vol] 1.99 10*3/uL Normal 1.00-4.00 [facility] [facility] Comment on above: Order Comment: Speci men Type: BLOOD SPECIMENOrdering Facility: [facility] Address: [address] [place] [address] Performed By: #### 5 7021-8 ####[facility] LABORATORYCLIA [id number] [address] Lymphocytes/100 WBC (Bld) 17.6 % Normal [facility] Comment on above: Order Comment: Speci men Type: BLOOD SPECIMENOrdering Facility: [facility] Address: [address] [place] [address] Performed By: #### 5 7021-8 ####[facility] LABORATORYCLIA [id number] [address] MCH (RBC) [Entitic mass] 28.4 pg Normal 26.0-34.0 [facility] Comment on above: Order Comment: Speci men Type: BLOOD SPECIMENOrdering Facility: [facility] Address: [address] [place] [address] Performed By: #### 5 7021-8 ####[facility] LABORATORYCLIA [id number] [place] [address] [place] MCHC (RBC) [Mass/Vol] 30.3 g/dL Low 30.5-36.0 [facility] Comment on above: Order Comment: Speci men Type: BLOOD SPECIMENOrdering Facility: [facility] Address: [address] [place] [address] Performed By: #### 5 7021-8 ####[facility] LABORATORYCLIA [id number] [address] [place] MCV (RBC) [Entitic vol] 93.8 fL Normal 80.0-100.0 [facility] Comment on above: Order Comment: Speci men Type: BLOOD SPECIMENOrdering Facility: [facility] Address: [address] [place] [address] Performed By: #### 5 7021-8 ####[facility] LABORATORYCLIA [id number] [address] [place] Monocytes (Bld) [#/Vol] 0.57 10*3/uL Normal <0.87 [facility] Comment on above: Order Comment: Speci men Type: BLOOD SPECIMENOrdering Facility: [facility] Address: [address] [place] [address] Performed By: #### 5 7021-8 ####[facility] LABORATORYCLIA [id number] [address] Monocytes/100 WBC (Bld) 5.0 % Normal [facility] Comment on above: Order Comment: Speci men Type: BLOOD SPECIMENOrdering Facility: [facility] Address: [address] [place] [address] Performed By: #### 5 7021-8 ####[facility] LABORATORYCLIA [id number] [address] [place] Neutrophils (Bld) [#/Vol] 8.12 10*3/uL High 1.45-7.50 [facility] Comment on above: Order Comment: Speci men Type: BLOOD SPECIMENOrdering Facility: [facility] Address: [address] [place] [address] Performed By: #### 5 7021-8 ####[facility] LABORATORYCLIA [id number] [address] Neutrophils/100 WBC (Bld) 72.0 % Normal [facility] Comment on above: Order Comment: Speci men Type: BLOOD SPECIMENOrdering Facility: [facility] Address: [address] [place] [address] Performed By: #### 5 7021-8 ####[facility] LABORATORYCLIA [id number] [address] [place] Nucleated RBC (Bld) [#/Vol] 10*3/uL Normal <0.01 [facility] Comment on above: Order Comment: Speci men Type: BLOOD SPECIMENOrdering Facility: [facility] Address: [address] [place] [address] Performed By: #### 5 7021-8 ####[facility] LABORATORYCLIA [id number] [address] Nucleated RBC/100 WBC (Bld) [Ratio] 0.0 /100 WBC Normal [facility] Comment on above: Order Comment: Speci men Type: BLOOD SPECIMENOrdering Facility: [facility] Address: [address] [place] [address] Performed By: #### 5 7021-8 ####[facility] LABORATORYCLIA [id number] [address] [place] Platelet mean volume (Bld) [Entitic vol] 10.9 fL Normal 9.0-12.7 [facility] Comment on above: Order Comment: Speci men Type: BLOOD SPECIMENOrdering Facility: [facility] Address: [address] [place] [address] Performed By: #### 5 7021-8 ####[facility] LABORATORYCLIA [id number] [address] [place] Platelets (Bld) [#/Vol] 303 10*3/uL Normal 150-400 [facility] Comment on above: Order Comment: Speci men Type: BLOOD SPECIMENOrdering Facility: [facility] Address: [address] [place] [address] Performed By: #### 5 7021-8 ####[facility] LABORATORYCLIA [id number] [address] [facility] RBC (Bld) [#/Vol] 3.24 10*6/uL Low 4.20-6.00 [facility] Comment on above: Order Comment: Speci men Type: BLOOD SPECIMENOrdering Facility: [facility] Address: [address] [place] [address] Performed By: #### 5 7021-8 ####[facility] LABORATORYCLIA [id number] [address] WBC (Bld) [#/Vol] 11.30 10*3/uL High 3.70-11.00 [facility] Comment on above: Order Comment: Speci men Type: BLOOD SPECIMENOrdering Facility: [facility] Address: [address] [place] [address] Performed By: #### 5 7021-8 ####[facility] LABORATORYCLIA [id number] [address] NURSING PROGon 07-31-2021 NURSING PROG Normal [facility] aPTT PPPon 07-31-2021 aPTT Coag (PPP) [Time] 64.9 s High 23.0-32.4 [facility] Comment on above: Order Comment: Speci men Type: BLOOD SPECIMENOrdering Facility: [facility] Address: [address] [place] [address] Performed By: #### 1 4979-9 ####[facility] LABORATORYCLIA [id number] [address] [facility] ALLIED HEALTHon 07-30-2021 ALLIED HEALTH Normal [facility] Bacteria CSF Culton 07-31-19 22 Bacteria identified Cx Nom (CSF) CULTURE, CSF: No growth 14 days GRAM STAIN: No organisms seen Few Mononuclear cells Rare Polymorphonuclear leukocytes Gram stain performed on cytospun specimen. Normal [facility] Comment on above: Performed By: #### 6 06-4 ####[facility] LABORATORYCLIA [id number] [place] [address] [place] Basic metabolic 2000 panelon 07-30-2021 Anion gap [Moles/Vol] 9 mmol/L Normal 9-18 [facility] Comment on above: Order Comment: Speci men Type: BLOOD SPECIMENOrdering Facility: [facility] Address: [address] [place] [address] Performed By: #### 2 777-1, 04616-0, ####[facility] LABORATORYCLIA [id number] [place] [address] [place] Calcium [Mass/Vol] 8.9 mg/dL Normal 8.5-10.2 [facility] Comment on above: Order Comment: Speci men Type: BLOOD SPECIMENOrdering Facility: [facility] Address: [address] [place] [address] Performed By: #### 2 777-1, , ####[facility] LABORATORYCLIA [id number] [place] [address] [place] Chloride [Moles/Vol] 95 mmol/L Low 97-105 [facility] Comment on above: Order Comment: Speci men Type: BLOOD SPECIMENOrdering Facility: [facility] Address: [address] [place] [address] Performed By: #### 2 777-1, 56767-1, ####[facility] LABORATORYCLIA [id number] [place] [address] [place] CO2 [Moles/Vol] 28 mmol/L Normal 22-30 [facility] Comment on above: Order Comment: Speci men Type: BLOOD SPECIMENOrdering Facility: [facility] Address: [address] [place] [address] Performed By: #### 2 777-1, 66977-0, ####[facility] LABORATORYCLIA [id number] [address] [place] Creatinine [Mass/Vol] 0.67 mg/dL Low 0.73-1.22 [facility] Comment on above: Order Comment: Shira feldman Type: BLOOD SPECIMENOrdering Facility: [facility] Address: [address] [place] [address] Performed By: #### 2 777-1, 02314-5, ####[facility]PITALIA [id number] [address] ESTIMATED GLOMERULAR FILTRATION RATE 101 mL/min/1.73m??? Normal >=60 [facility] Comment on above: Order Comment: Shira feldman Type: BLOOD SPECIMENOrdering Facility: [facility] Address: [address] [place] [address] Result Comment: Luzmaria mated Glomerular Filtration Rate [...] actual GFR. Performed By: #### 2 777-1, 60083-7, ####[facility] HOSPITALIA [id number] [address] [place] Glucose [Mass/Vol] 125 mg/dL High 74-99 [facility] Comment on above: Order Comment: Shira feldman Type: BLOOD SPECIMENOrdering Facility: [facility] Address: [address] [place], [place] [address] Result Comment: The [place] Diabetes Association (ADA) provides guidance for cutoff [...] Standards of Medical Care in Diabetes 2016, [place] Diabetes Association. Diabetes Care. 2016.39(Suppl 1). Performed By: #### 2 777-1, 54556-4, ####[facility] LABORATORYCLIA [id number] [address] [facility] Potassium [Moles/Vol] 3.9 mmol/L Normal 3.7-5.1 [facility] Comment on above: Order Comment: Speci men Type: BLOOD SPECIMENOrdering Facility: [facility] Address: [address] [place] [address] Performed By: #### 2 777-1, , ####[facility] LABORATORYCLIA [id number] [address] Sodium [Moles/Vol] 132 mmol/L Low 136-144 [facility] Comment on above: Order Comment: Speci men Type: BLOOD SPECIMENOrdering Facility: [facility] Address: [address] [place] [address] Performed By: #### 2 777-1, , ####[facility] LABORATORYCLIA [id number] [address] STATES [facility] Urea nitrogen [Mass/Vol] 38 mg/dL High 9-24 [facility] Comment on above: Order Comment: Speci men Type: BLOOD SPECIMENOrdering Facility: [facility] Address: [address] [place] [address] Performed By: #### 2 777-1, , ####[facility] LABORATORYCLIA [id number] [address] OF [facility] CBC W Auto Differential pane l (Bld)on 07-30-2021 Basophils (Bld) [#/Vol] 0.04 10*3/uL Normal <0.11 [facility] Comment on above: Order Comment: Speci men Type: BLOOD SPECIMENOrdering Facility: [facility] Address: [address] [place] [address] Performed By: #### 5 7021-8 ####[facility]ATORYCLIA [id number] [address] STATES [facility] Basophils/100 WBC (Bld) 0.4 % Normal [facility] Comment on above: Order Comment: Speci men Type: BLOOD SPECIMENOrdering Facility: [facility] Address: [address] [place] [address] Performed By: #### 5 7021-8 ####[facility] LABORATORYCLIA [id number] [address] Differential cell count method Nom (Bld) Auto Normal [facility] Comment on above: Order Comment: Speci men Type: BLOOD SPECIMENOrdering Facility: [facility] Address: [address] [place] [address] Performed By: #### 5 7021-8 ####[facility] LABORATORYCLIA [id number] [address] [place] Eosinophils (Bld) [#/Vol] 0.30 10*3/uL Normal <0.46 [facility] Comment on above: Order Comment: Speci men Type: BLOOD SPECIMENOrdering Facility: [facility] Address: [address] [place] [address] Performed By: #### 5 7021-8 ####[facility] LABORATORYCLIA [id number] [address] Eosinophils/100 WBC (Bld) 2.7 % Normal [facility] Comment on above: Order Comment: Speci men Type: BLOOD SPECIMENOrdering Facility: [facility] Address: [address] [place] [address] Performed By: #### 5 7021-8 ####[facility]ORATORYCLIA [id number] [address] [place] Erythrocyte distribution width (RBC) [Ratio] 17.2 % High 11.5-15.0 [facility] Comment on above: Order Comment: Speci men Type: BLOOD SPECIMENOrdering Facility: [facility] Address: [address] [place] [address] Performed By: #### 5 7021-8 ####[facility] LABORATORYCLIA [id number] [address] [facility] Hematocrit (Bld) [Volume fraction] 30.8 % Low 39.0-51.0 [facility] Comment on above: Order Comment: Speci men Type: BLOOD SPECIMENOrdering Facility: [facility] Address: [address] [place] [address] Performed By: #### 5 7021-8 ####[facility] LABORATORYCLIA [id number] [address] Hemoglobin (Bld) [Mass/Vol] 9.4 g/dL Low 13.0-17.0 [facility] Comment on above: Order Comment: Speci men Type: BLOOD SPECIMENOrdering Facility: [facility] Address: [address] [place] [address] Performed By: #### 5 7021-8 ####[facility] LABORATORYCLIA [id number] [address] IMMATURE GRAN % 0.5 % Normal [facility] Comment on above: Order Comment: Speci men Type: BLOOD SPECIMENOrdering Facility: [facility] Address: [address] [place] [address] Performed By: #### 5 7021-8 ####[facility] LABORATORYCLIA [id number] [address] IMMATURE GRAN ABS 0.06 k/uL Normal <0.10 [facility] Comment on above: Order Comment: Speci men Type: BLOOD SPECIMENOrdering Facility: [facility] Address: [address] [place] [address] Performed By: #### 5 7021-8 ####[facility] LABORATORYCLIA [id number] [address] [place] Lymphocytes (Bld) [#/Vol] 1.68 10*3/uL Normal 1.00-4.00 [facility] Comment on above: Order Comment: Speci men Type: BLOOD SPECIMENOrdering Facility: [facility] Address: [address] [place] [address] Performed By: #### 5 7021-8 ####[facility] LABORATORYCLIA [id number] [address] OF [facility] Lymphocytes/100 WBC (Bld) 15.3 % Normal [facility] Comment on above: Order Comment: Speci men Type: BLOOD SPECIMENOrdering Facility: [facility] Address: [address] [place] [address] Performed By: #### 5 7021-8 ####[facility] LABORATORYCLIA [id number] [address] [place] MCH (RBC) [Entitic mass] 28.0 pg Normal 26.0-34.0 [facility] Comment on above: Order Comment: Speci men Type: BLOOD SPECIMENOrdering Facility: [facility] Address: [address] [place] [address] Performed By: #### 5 7021-8 ####[facility] LABORATORYCLIA [id number] [address] [place] MCHC (RBC) [Mass/Vol] 30.5 g/dL Normal 30.5-36.0 [facility] Comment on above: Order Comment: Speci men Type: BLOOD SPECIMENOrdering Facility: [facility] Address: [address] [place] [address] Performed By: #### 5 7021-8 ####[facility] LABORATORYCLIA [id number] [address] STATES [facility] MCV (RBC) [Entitic vol] 91.7 fL Normal 80.0-100.0 [facility] Comment on above: Order Comment: Speci men Type: BLOOD SPECIMENOrdering Facility: [facility] Address: [address] [place] [address] Performed By: #### 5 7021-8 ####[facility]ATORYCLIA [id number] [address] [place] Monocytes (Bld) [#/Vol] 0.53 10*3/uL Normal <0.87 [facility] Comment on above: Order Comment: Speci men Type: BLOOD SPECIMENOrdering Facility: [facility] Address: [address] [place] [address] Performed By: #### 5 7021-8 ####[facility]ORATORYCLIA [id number] [address] [place] Monocytes/100 WBC (Bld) 4.8 % Normal [facility] Comment on above: Order Comment: Speci men Type: BLOOD SPECIMENOrdering Facility: [facility] Address: [address] [place] [address] Performed By: #### 5 7021-8 ####[facility] LABORATORYCLIA [id number] [address] [place] Neutrophils (Bld) [#/Vol] 8.39 10*3/uL High 1.45-7.50 [facility] Comment on above: Order Comment: Speci men Type: BLOOD SPECIMENOrdering Facility: [facility] Address: [address] [place] [address] Performed By: #### 5 7021-8 ####[facility]ATORYCLIA [id number] [address] [place] Neutrophils/100 WBC (Bld) 76.3 % Normal [facility] Comment on above: Order Comment: Speci men Type: BLOOD SPECIMENOrdering Facility: [facility] Address: [address] [place] [address] Performed By: #### 5 7021-8 ####[facility]ORATORYCLIA [id number] [address] [place] Nucleated RBC (Bld) [#/Vol] 10*3/uL Normal <0.01 [facility] Comment on above: Order Comment: Speci men Type: BLOOD SPECIMENOrdering Facility: [facility] Address: [address] [place] [address] Performed By: #### 5 7021-8 ####[facility] LABORATORYCLIA [id number] [address] [place] Nucleated RBC/100 WBC (Bld) [Ratio] 0.0 /100 WBC Normal [facility] Comment on above: Order Comment: Speci men Type: BLOOD SPECIMENOrdering Facility: [facility] Address: [address] [place], [place] [address] Performed By: #### 5 7021-8 ####[facility] LABORATORYCLIA [id number] [place] [address] [place] Platelet mean volume (Bld) [Entitic vol] 10.9 fL Normal 9.0-12.7 [facility] Comment on above: Order Comment: Speci men Type: BLOOD SPECIMENOrdering Facility: [facility] Address: [address] [place] [address] Performed By: #### 5 7021-8 ####[facility] LABORATORYCLIA [id number] [place] [address] [place] Platelets (Bld) [#/Vol] 287 10*3/uL Normal 150-400 [facility] Comment on above: Order Comment: Speci men Type: BLOOD SPECIMENOrdering Facility: [facility] Address: [address] Performed By: #### 5 7021-8 ####[facility] LABORATORYCLIA [id number] [place] [address] [place] RBC (Bld) [#/Vol] 3.36 10*6/uL Low 4.20-6.00 [facility] Comment on above: Order Comment: Speci men Type: BLOOD SPECIMENOrdering Facility: [facility] Address: [address] [place] [address] Performed By: #### 5 7021-8 ####[facility] LABORATORYCLIA [id number] [address] [place] WBC (Bld) [#/Vol] 11.00 10*3/uL Normal 3.70-11.00 [facility] Comment on above: Order Comment: Speci men Type: BLOOD SPECIMENOrdering Facility: [facility] Address: [address] [place] [address] Performed By: #### 5 7021-8 ####[facility]ORATORYCLIA [id number] [address] [facility] CSF MANUAL DIFFon 07-30-2021 DIF TTL, CSF 100 cells counted Normal [facility] Comment on above: Order Comment: Speci men Type: CEREBROSPINAL FLUIDOrdering Facility: [facility] Address: [address] [place] [address] Performed By: #### L [id number], TKE3547, 57742-6 ####[facility] LABORATORYCLIA [id number] [address] [place] EOSIN%, CSF 0 % Normal [facility] Comment on above: Order Comment: Speci men Type: CEREBROSPINAL FLUIDOrdering Facility: [facility] Address: [address] [place] [address] Performed By: #### L [id number], UEH2203, 25509-9 ####[facility]ORATORYCLIA [id number] [address] [place] LYMPH%, CSF 75 % Normal 50-90 [facility] Comment on above: Order Comment: Speci men Type: CEREBROSPINAL FLUIDOrdering Facility: [facility] Address: [address] [place] [address] Performed By: #### L [id number], HTX2871, 50433-0 ####[facility]ATORYCLIA [id number] [address] [place] MACRO%, CSF 9 % High <1 [facility] Comment on above: Order Comment: Speci men Type: CEREBROSPINAL FLUIDOrdering Facility: [facility] Address: [address] [place] [address] Performed By: #### L [id number], PGE9034, 62990-1 ####[facility]ORATORYCLIA [id number] [place] [address] [place] MONO%, CSF 10 % Normal 10-50 [facility] Comment on above: Order Comment: Speci men Type: CEREBROSPINAL FLUIDOrdering Facility: [facility] Address: [address] [place] [address] Performed By: #### L [id number], VYJ2211, 25972-3 ####[facility]ATORYCLIA [id number] [address] OF [facility] OTHER CL%, CSF 4 % Normal [facility] Comment on above: Order Comment: Speci men Type: CEREBROSPINAL FLUIDOrdering Facility: [facility] Address: [address] [place] [address] Result Comment: Path review to follow. Performed By: #### L [id number], RMG5376, 96005-8 ####[facility]ATORYCLIA [id number] [address] REAC LYMPH %, CSF 2 % Normal [facility] Comment on above: Order Comment: Speci men Type: CEREBROSPINAL FLUIDOrdering Facility: [facility] Address: [address] [place] [address] Performed By: #### L HI0927, XBD2693, 22667-7 ####[facility]ORATORYCLIA [id number] [address] CSF PATHOLOGIST INTERP (LAB REFLEX ORDER-NO BILL)on 07-30-2021 CSF STAFF REVIEW Negative Normal [facility] Comment on above: Order Comment: Speci men Type: CEREBROSPINAL FLUIDOrdering Facility: [facility] Address: [address] [place] [address] Performed By: #### L FR8787, NZK6749, 33011-0 ####[facility]ATORYCLIA [id number] [address] Pathologist name Reviewed by Eloise rebolledo MD Normal [facility] Comment on above: Order Comment: Speci men Type: CEREBROSPINAL FLUIDOrdering Facility: [facility] Address: [address] [place] [address] Performed By: #### L [id number], DTQ5805, 59234-2 ####[facility]ATORYCLIA [id number] [address] [facility] CT BRAIN WO IVCONon 07-31-19 CT BRAIN WO IVCON Normal [facility] Cell count panel (CSF)on Clarity (CSF) Clear Normal Clear [facility] Comment on above: Order Comment: Speci men Type: CEREBROSPINAL FLUIDOrdering Facility: [facility] Address: [address] [place] [address] Performed By: #### L [id number], DUL5338, 37843-8 ####[facility] LABORATORYCLIA [id number] [address] [place] Clarity (Unsp spec) Clear Normal Clear [facility] Comment on above: Order Comment: Speci men Type: CEREBROSPINAL FLUIDOrdering Facility: [facility] Address: [address] [place] [address] Performed By: #### L [id number], XLT1534, 03272-2 ####[facility] LABORATORYCLIA [id number] [address] [place] Color (CSF) Colorless Normal Colorless [facility] Comment on above: Order Comment: Speci men Type: CEREBROSPINAL FLUIDOrdering Facility: [facility] Address: [address] [place] [address] Performed By: #### L [id number], IHL2597, 42840-0 ####[facility] [facility] LABORATORYCLIA [id number] [address] [place] Color (Spun CSF) Colorless Normal Colorless [facility] Comment on above: Order Comment: Speci men Type: CEREBROSPINAL FLUIDOrdering Facility: [facility] Address: [address] [place] [address] Performed By: #### L RS2895, LSD6354, 30542-0 ####[facility] LABORATORYCLIA [id number] [address] CSF TUBE NUMBER [employer] Normal [facility] Comment on above: Order Comment: Shira feldman Type: CEREBROSPINAL FLUIDOrdering Facility: [facility] Address: [address] [place] [address] Performed By: #### L XR6903, LXI8583, 95235-3 ####[facility] LABORATORYCLIA [id number] [address] RBC Manual cnt (CSF) [#/Vol] 9 cells/uL High 0-5 [facility] Comment on above: Order Comment: Shira feldman Type: CEREBROSPINAL FLUIDOrdering Facility: [facility] Address: [address] [place] [address] Performed By: #### L LV7522, RUE1817, 79413-8 ####[facility] LABORATORYCLIA [id number] [address] WBC Manual cnt (CSF) [#/Vol] 8 cells/uL High 0-5 [facility] Comment on above: Order Comment: Shira feldman Type: CEREBROSPINAL FLUIDOrdering Facility: [facility] Address: [address] [place] [address] Performed By: #### L CN3059, WGL8003, 60943-4 ####[facility] LABORATORYCLIA [id number] [address] Glucose CSF-mCncon 2 Glucose (CSF) [Mass/Vol] 65 mg/dL Normal 40-70 [facility] Comment on above: Order Comment: Shira feldman Type: CEREBROSPINAL FLUIDOrdering Facility: [facility] Address: [address] [place] [address] Result Comment: Lumb ar CSF glucose values of healthy patients are approximately 60% of the plasma values and must always be compared with a concurrently measured plasma value for adequate clinical interpretation.References: 1. Glucose HK (GLUC3) [package insert V 12.0 American]. [employer], [place], [place]. September 2015. 2. Michelle Moore, Loki HGarfield (2015). Chapter 7: Glucose and Lactate. F. Irina rose al.(eds.), Cerebrospinal Fluid in Clinical Neurology. [place]: [employer]. Performed By: #### 2 342-4, 2880-3 ####[facility] LABORATORYCLIA [id number] [address] [facility] Magnesium SerPl-ncon 07-30 Magnesium [Mass/Vol] 2.5 mg/dL High 1.7-2.3 [facility] Comment on above: Order Comment: Speci men Type: BLOOD SPECIMENOrdering Facility: [facility] Address: [address] [place] [address] Performed By: #### 2 777-1, 80030-4, 45368-8 ####[facility] LABORATORYCLIA [id number] [address] [facility] NURSING PROGon 07-30-2021 NURSING PROG Normal [facility] Phosphate SerPl-ncon 07-30 Phosphate [Mass/Vol] 2.4 mg/dL Low 2.7-4.8 [facility] Comment on above: Order Comment: Speci men Type: BLOOD SPECIMENOrdering Facility: [facility] Address: [address] [place] [address] Performed By: #### 2 777-1, 98726-7, 67860-5 ####[facility] LABORATORYCLIA [id number] [address] Prot CSF-mCncon 07-30-2021 Protein (CSF) [Mass/Vol] 50 mg/dL High 15-45 [facility] Comment on above: Order Comment: Speci men Type: CEREBROSPINAL FLUIDOrdering Facility: [facility] Address: [address] [place] [address] Performed By: #### 2 342-4, 2880-3 ####[facility] LABORATORYCLIA [id number] [address] [place] aPTT PPPon 07-30-2021 aPTT Coag (PPP) [Time] 64.1 s High 23.0-32.4 [facility] Comment on above: Order Comment: Speci men Type: BLOOD SPECIMENOrdering Facility: [facility] Address: [address] [place] [address] Performed By: #### 1 4979-9 ####[facility] LABORATORYCLIA [id number] [address] [place] Bacteria CSF Culton 07-30-19 22 Bacteria identified Cx Nom (CSF) CULTURE, CSF: No growth 14 days GRAM STAIN: No cells or organisms seen Gram stain performed on cytospun specimen. Gram stain confirmed by microbiology Normal [facility] Comment on above: Performed By: #### 6 06-4 ####[facility] LABORATORYCLIA [id number] [address] CASE MANAGEMon 07-29-2021 CASE MANAGEM Normal [facility] CBC W Auto Differential pane l (Bld)on 07-29-2021 Basophils (Bld) [#/Vol] 0.03 10*3/uL Normal <0.11 [facility] Comment on above: Order Comment: Speci men Type: BLOOD SPECIMENOrdering Facility: [facility] Address: [address] [place] [address] Performed By: #### 5 7021-8 ####[facility] LABORATORYCLIA [id number] [address] [place] Basophils/100 WBC (Bld) 0.3 % Normal [facility] Comment on above: Order Comment: Speci men Type: BLOOD SPECIMENOrdering Facility: [facility] Address: [address] [place] [address] Performed By: #### 5 7021-8 ####[facility] LABORATORYCLIA [id number] [address] [place] Differential cell count method Nom (Bld) Auto Normal [facility] Comment on above: Order Comment: Speci men Type: BLOOD SPECIMENOrdering Facility: [facility] Address: [address] [place] [address] Performed By: #### 5 7021-8 ####[facility] LABORATORYCLIA [id number] [address] Eosinophils (Bld) [#/Vol] 0.40 10*3/uL Normal <0.46 [facility] Comment on above: Order Comment: Speci men Type: BLOOD SPECIMENOrdering Facility: [facility] Address: [address] [place] [address] Performed By: #### 5 7021-8 ####[facility] LABORATORYCLIA [id number] [address] Eosinophils/100 WBC (Bld) 3.9 % Normal [facility] Comment on above: Order Comment: Speci men Type: BLOOD SPECIMENOrdering Facility: [facility] Address: [address] [place] [address] Performed By: #### 5 7021-8 ####[facility] LABORATORYCLIA [id number] [address] Erythrocyte distribution width (RBC) [Ratio] 17.1 % High 11.5-15.0 [facility] Comment on above: Order Comment: Speci men Type: BLOOD SPECIMENOrdering Facility: [facility] Address: [address] [place] [address] Performed By: #### 5 7021-8 ####[facility] LABORATORYCLIA [id number] [address] Hematocrit (Bld) [Volume fraction] 32.0 % Low 39.0-51.0 [facility] Comment on above: Order Comment: Speci men Type: BLOOD SPECIMENOrdering Facility: [facility] Address: [address] [place] [address] Performed By: #### 5 7021-8 ####[facility] LABORATORYCLIA [id number] [place] [address] [place] Hemoglobin (Bld) [Mass/Vol] 9.7 g/dL Low 13.0-17.0 [facility] Comment on above: Order Comment: Speci men Type: BLOOD SPECIMENOrdering Facility: [facility] Address: [address] [place] [address] Performed By: #### 5 7021-8 ####[facility]ORATORYCLIA [id number] [address] [place] IMMATURE GRAN % 0.6 % Normal [facility] Comment on above: Order Comment: Speci men Type: BLOOD SPECIMENOrdering Facility: [facility] Address: [address] [place] [address] Performed By: #### 5 7021-8 ####[facility] LABORATORYCLIA [id number] [address] OF [facility] IMMATURE GRAN ABS 0.06 k/uL Normal <0.10 [facility] Comment on above: Order Comment: Speci men Type: BLOOD SPECIMENOrdering Facility: [facility] Address: [address] [place] [address] Performed By: #### 5 7021-8 ####[facility] LABORATORYCLIA [id number] [address] [place] Lymphocytes (Bld) [#/Vol] 1.96 10*3/uL Normal 1.00-4.00 [facility] Comment on above: Order Comment: Speci men Type: BLOOD SPECIMENOrdering Facility: [facility] Address: [address] [place] [address] Performed By: #### 5 7021-8 ####[facility] LABORATORYCLIA [id number] [address] [place] Lymphocytes/100 WBC (Bld) 19.0 % Normal [facility] Comment on above: Order Comment: Speci men Type: BLOOD SPECIMENOrdering Facility: [facility] Address: [address] [place] [address] Performed By: #### 5 7021-8 ####[facility]ORATORYCLIA [id number] [address] MCH (RBC) [Entitic mass] 28.0 pg Normal 26.0-34.0 [facility] Comment on above: Order Comment: Speci men Type: BLOOD SPECIMENOrdering Facility: [facility] Address: [address] [place] [address] Performed By: #### 5 7021-8 ####[facility] LABORATORYCLIA [id number] [address] OF [facility] MCHC (RBC) [Mass/Vol] 30.3 g/dL Low 30.5-36.0 [facility] Comment on above: Order Comment: Speci men Type: BLOOD SPECIMENOrdering Facility: [facility] Address: [address] [place] [address] Performed By: #### 5 7021-8 ####[facility] LABORATORYCLIA [id number] [address] MCV (RBC) [Entitic vol] 92.5 fL Normal 80.0-100.0 [facility] Comment on above: Order Comment: Speci men Type: BLOOD SPECIMENOrdering Facility: [facility] Address: [address] [place] [address] Performed By: #### 5 7021-8 ####[facility] LABORATORYCLIA [id number] [address] OF [facility] Monocytes (Bld) [#/Vol] 0.53 10*3/uL Normal <0.87 [facility] Comment on above: Order Comment: Speci men Type: BLOOD SPECIMENOrdering Facility: [facility] Address: [address] [place] [address] Performed By: #### 5 7021-8 ####[facility] LABORATORYCLIA [id number] [address] Monocytes/100 WBC (Bld) 5.2 % Normal [facility] Comment on above: Order Comment: Speci men Type: BLOOD SPECIMENOrdering Facility: [facility] Address: [address] [address] Performed By: #### 5 7021-8 ####[facility]ORATORYCLIA [id number] [address] [place] Neutrophils (Bld) [#/Vol] 7.31 10*3/uL Normal 1.45-7.50 [facility] Comment on above: Order Comment: Speci men Type: BLOOD SPECIMENOrdering Facility: [facility] Address: [address] [place] [address] Performed By: #### 5 7021-8 ####[facility] LABORATORYCLIA [id number] [address] STATES [facility] Neutrophils/100 WBC (Bld) 71.0 % Normal [facility] Comment on above: Order Comment: Speci men Type: BLOOD SPECIMENOrdering Facility: [facility] Address: [address] [place] [address] Performed By: #### 5 7021-8 ####[facility] LABORATORYCLIA [id number] [address] [place] Nucleated RBC (Bld) [#/Vol] 10*3/uL Normal <0.01 [facility] Comment on above: Order Comment: Speci men Type: BLOOD SPECIMENOrdering Facility: [facility] Address: [address] [place] [address] Performed By: #### 5 7021-8 ####[facility] LABORATORYCLIA [id number] [address] [place] Nucleated RBC/100 WBC (Bld) [Ratio] 0.0 /100 WBC Normal [facility] Comment on above: Order Comment: Speci men Type: BLOOD SPECIMENOrdering Facility: [facility] Address: [address] [place] [address] Performed By: #### 5 7021-8 ####[facility] LABORATORYCLIA [id number] [address] [place] Platelet mean volume (Bld) [Entitic vol] 11.2 fL Normal 9.0-12.7 [facility] Comment on above: Order Comment: Speci men Type: BLOOD SPECIMENOrdering Facility: [facility] Address: [address] [place] [address] Performed By: #### 5 7021-8 ####[facility] LABORATORYCLIA [id number] [address] [facility] Platelets (Bld) [#/Vol] 276 10*3/uL Normal 150-400 [facility] Comment on above: Order Comment: Speci men Type: BLOOD SPECIMENOrdering Facility: [facility] Address: [address] [place] [address] Performed By: #### 5 7021-8 ####[facility] LABORATORYCLIA [id number] [address] OF [facility] RBC (Bld) [#/Vol] 3.46 10*6/uL Low 4.20-6.00 [facility] Comment on above: Order Comment: Speci men Type: BLOOD SPECIMENOrdering Facility: [facility] Address: [address] [place] [address] Performed By: #### 5 7021-8 ####[facility] LABORATORYCLIA [id number] [address] WBC (Bld) [#/Vol] 10.29 10*3/uL Normal 3.70-11.00 [facility] Comment on above: Order Comment: Speci men Type: BLOOD SPECIMENOrdering Facility: [facility] Address: [address] [place] [address] Performed By: #### 5 7021-8 ####[facility] LABORATORYCLIA [id number] [address] [facility] NURSING PROGon 07-29-2021 NURSING PROG Normal [facility] THERAPY NTon 07-29-2021 THERAPY NT Normal [facility] aPTT PPPon 07-29-2021 aPTT Coag (PPP) [Time] 59.2 s High 23.0-32.4 [facility] Comment on above: Order Comment: Speci men Type: BLOOD SPECIMENOrdering Facility: [facility] Address: [address] [place] [address] Performed By: #### 1 4979-9 ####[facility] LABORATORYCLIA [id number] [place] [address] [place] ALLIED HEALTHon 07-28-2021 ALLIED HEALTH Normal [facility] Basic metabolic 2000 panelon 07-28-2021 Anion gap [Moles/Vol] 7 mmol/L Low 9-18 [facility] Comment on above: Order Comment: Speci men Type: BLOOD SPECIMENOrdering Facility: [facility] Address: [address] [place] [address] Performed By: #### 1 4338-8, 96268-4, 2777-1, 87561-0 ####[facility] LABORATORYCLIA [id number] [place] [address] [place] Calcium [Mass/Vol] 9.0 mg/dL Normal 8.5-10.2 [facility] Comment on above: Order Comment: Speci men Type: BLOOD SPECIMENOrdering Facility: [facility] Address: [address] [place] [address] Performed By: #### 1 4338-8, 39271-9, 2777-1, 90515-0 ####[facility] LABORATORYCLIA [id number] [place] [address] [place] Chloride [Moles/Vol] 94 mmol/L Low 97-105 [facility] Comment on above: Order Comment: Speci men Type: BLOOD SPECIMENOrdering Facility: [facility] Address: [address] [place] [address] Performed By: #### 1 4338-8, 51276-2, 2777-1, 01095-5 ####[facility] LABORATORYCLIA [id number] [place] [address] [place] CO2 [Moles/Vol] 31 mmol/L High 22-30 [facility] Comment on above: Order Comment: Speci men Type: BLOOD SPECIMENOrdering Facility: [facility] Address: [address] [place] [address] Performed By: #### 1 4338-8, 29726-8, 2777-, 78645-3 ####[facility] CARMELCLIA [id number] [place] [address] [place] Creatinine [Mass/Vol] 0.75 mg/dL Normal 0.73-1.22 [facility] Comment on above: Order Comment: Speci men Type: BLOOD SPECIMENOrdering Facility: [facility] Address: [address] [place] [address] Performed By: #### 1 4338-8, 82572-4, 2776-05, 73621-4 ####[facility] CARMELCLIA [id number] [address] [place] ESTIMATED GLOMERULAR FILTRATION RATE 98 mL/min/1.73m??? Normal >=60 [facility] Comment on above: Order Comment: Speci men Type: BLOOD SPECIMENOrdering Facility: [facility] Address: [address] [place] [address] Result Comment: Luzmaria mated Glomerular Filtration Rate [...] actual GFR. Performed By: #### 1 4338-8, 13943-3, 2777-, 01021-9 ####[facility] LABORATORYCLIA [id number] [place] [address] [place] Glucose [Mass/Vol] 122 mg/dL High 74-99 [facility] Comment on above: Order Comment: Speci [facility] Type: BLOOD SPECIMENOrdering Facility: [facility] Address: [address] [place], [place] [id number] Result Comment: The [place] Diabetes Association (ADA) provides guidance for cutoff [...] Standards of Medical Care in Diabetes 2016, [place] Diabetes Association. Diabetes Care. 2016.39(Suppl 1). Performed By: #### 1 4338-8, 23867-3, 2777-1, 45631-8 ####[facility] LABORATORYCLIA [id number] [place] [address] [place] Potassium [Moles/Vol] 4.0 mmol/L Normal 3.7-5.1 [facility] Comment on above: Order Comment: Shira [facility] Type: BLOOD SPECIMENOrdering Facility: [facility] Address: [address] [place] [address] Performed By: #### 1 4338-8, 80011-7, 277-, 52174-9 ####[facility] CARMELCLIA [id number] [place] [address] [place] Sodium [Moles/Vol] 132 mmol/L Low 136-144 [facility] Comment on above: Order Comment: Shira [facility] Type: BLOOD SPECIMENOrdering Facility: [facility] Address: [address] [address] Performed By: #### 1 4338-8, 58045-4, 277-1, 17808-6 ####[facility] LABORATORYCLIA [id number] [place] [address] [place] Urea nitrogen [Mass/Vol] 34 mg/dL High 9-24 [facility] Comment on above: Order Comment: Shira feldman Type: BLOOD SPECIMENOrdering Facility: [facility] Address: [address] [address] Performed By: #### 1 4338-8, 19877-9, 2777-1, 02996-9 ####[facility]ORATORYCLIA [id number] [address] STATES OF [facility] CBC W Auto Differential pane l (Bld)on 07-28-2021 Basophils (Bld) [#/Vol] 0.04 10*3/uL Normal <0.11 [facility] Comment on above: Order Comment: Speci men Type: BLOOD SPECIMENOrdering Facility: [facility] Address: [address] [place] [address] Performed By: #### 5 7021-8 ####[facility] LABORATORYCLIA [id number] [address] Basophils/100 WBC (Bld) 0.5 % Normal [facility] Comment on above: Order Comment: Speci men Type: BLOOD SPECIMENOrdering Facility: [facility] Address: [address] [place] [address] Performed By: #### 5 7021-8 ####[facility] LABORATORYCLIA [id number] [address] Differential cell count method Nom (Bld) Auto Normal [facility] Comment on above: Order Comment: Speci men Type: BLOOD SPECIMENOrdering Facility: [facility] Address: [address] [place] [address] Performed By: #### 5 7021-8 ####[facility]ORATORYCLIA [id number] [place] [address] [place] Eosinophils (Bld) [#/Vol] 0.30 10*3/uL Normal <0.46 [facility] Comment on above: Order Comment: Speci men Type: BLOOD SPECIMENOrdering Facility: [facility] Address: [address] [place] [address] Performed By: #### 5 7021-8 ####[facility]ATORYCLIA [id number] [address] Eosinophils/100 WBC (Bld) 3.4 % Normal [facility] Comment on above: Order Comment: Speci men Type: BLOOD SPECIMENOrdering Facility: [facility] Address: [address] [place] [address] Performed By: #### 5 7021-8 ####[facility] LABORATORYCLIA [id number] [address] Erythrocyte distribution width (RBC) [Ratio] 16.9 % High 11.5-15.0 [facility] Comment on above: Order Comment: Speci men Type: BLOOD SPECIMENOrdering Facility: [facility] Address: [address] [place] [address] Performed By: #### 5 7021-8 ####[facility] LABORATORYCLIA [id number] [address] Hematocrit (Bld) [Volume fraction] 30.3 % Low 39.0-51.0 [facility] Comment on above: Order Comment: Speci men Type: BLOOD SPECIMENOrdering Facility: [facility] Address: [address] [place] [address] Performed By: #### 5 7021-8 ####[facility] LABORATORYCLIA [id number] [address] Hemoglobin (Bld) [Mass/Vol] 9.2 g/dL Low 13.0-17.0 [facility] Comment on above: Order Comment: Speci men Type: BLOOD SPECIMENOrdering Facility: [facility] Address: [address] [place] [address] Performed By: #### 5 7021-8 ####[facility] LABORATORYCLIA [id number] [address] IMMATURE GRAN % 0.6 % Normal [facility] Comment on above: Order Comment: Speci men Type: BLOOD SPECIMENOrdering Facility: [facility] Address: [address] [place] [address] Performed By: #### 5 7021-8 ####[facility] LABORATORYCLIA [id number] [address] IMMATURE GRAN ABS 0.05 k/uL Normal <0.10 [facility] Comment on above: Order Comment: Speci men Type: BLOOD SPECIMENOrdering Facility: [facility] Address: [address] [place] [address] Performed By: #### 5 7021-8 ####[facility] LABORATORYCLIA [id number] [address] Lymphocytes (Bld) [#/Vol] 1.68 10*3/uL Normal 1.00-4.00 [facility] Comment on above: Order Comment: Speci men Type: BLOOD SPECIMENOrdering Facility: [facility] Address: [address] [place] [address] Performed By: #### 5 7021-8 ####[facility] LABORATORYCLIA [id number] [address] Lymphocytes/100 WBC (Bld) 19.2 % Normal [facility] Comment on above: Order Comment: Speci men Type: BLOOD SPECIMENOrdering Facility: [facility] Address: [address] [place] [address] Performed By: #### 5 7021-8 ####[facility] LABORATORYCLIA [id number] [address] MCH (RBC) [Entitic mass] 28.4 pg Normal 26.0-34.0 [facility] Comment on above: Order Comment: Speci men Type: BLOOD SPECIMENOrdering Facility: [facility] Address: [address] [place] [address] Performed By: #### 5 7021-8 ####[facility] LABORATORYCLIA [id number] [address] MCHC (RBC) [Mass/Vol] 30.4 g/dL Low 30.5-36.0 [facility] Comment on above: Order Comment: Speci men Type: BLOOD SPECIMENOrdering Facility: [facility] Address: [address] [place] [address] Performed By: #### 5 7021-8 ####[facility]ORATORYCLIA [id number] [address] [place] MCV (RBC) [Entitic vol] 93.5 fL Normal 80.0-100.0 [facility] Comment on above: Order Comment: Speci men Type: BLOOD SPECIMENOrdering Facility: [facility] Address: [address] [place] [address] Performed By: #### 5 7021-8 ####[facility]ORATORYCLIA [id number] [address] [place] Monocytes (Bld) [#/Vol] 0.58 10*3/uL Normal <0.87 [facility] Comment on above: Order Comment: Speci men Type: BLOOD SPECIMENOrdering Facility: [facility] Address: [address] [place] [address] Performed By: #### 5 7021-8 ####[facility] LABORATORYCLIA [id number] [address] Monocytes/100 WBC (Bld) 6.6 % Normal [facility] Comment on above: Order Comment: Speci men Type: BLOOD SPECIMENOrdering Facility: [facility] Address: [address] [place] [address] Performed By: #### 5 7021-8 ####[facility] LABORATORYCLIA [id number] [address] [place] Neutrophils (Bld) [#/Vol] 6.11 10*3/uL Normal 1.45-7.50 [facility] Comment on above: Order Comment: Speci men Type: BLOOD SPECIMENOrdering Facility: [facility] Address: [address] [place] [address] Performed By: #### 5 7021-8 ####[facility] LABORATORYCLIA [id number] [address] [place] Neutrophils/100 WBC (Bld) 69.7 % Normal [facility] Comment on above: Order Comment: Speci men Type: BLOOD SPECIMENOrdering Facility: [facility] Address: [address] Performed By: #### 5 7021-8 ####[facility] LABORATORYCLIA [id number] [address] Nucleated RBC (Bld) [#/Vol] 10*3/uL Normal <0.01 [facility] Comment on above: Order Comment: Speci men Type: BLOOD SPECIMENOrdering Facility: [facility] Address: [address] [place] [address] Performed By: #### 5 7021-8 ####[facility] LABORATORYCLIA [id number] [address] Nucleated RBC/100 WBC (Bld) [Ratio] 0.0 /100 WBC Normal [facility] Comment on above: Order Comment: Speci men Type: BLOOD SPECIMENOrdering Facility: [facility] Address: [address] [place] [address] Performed By: #### 5 7021-8 ####[facility] LABORATORYCLIA [id number] [address] STATES [facility] Platelet mean volume (Bld) [Entitic vol] 11.3 fL Normal 9.0-12.7 [facility] Comment on above: Order Comment: Speci men Type: BLOOD SPECIMENOrdering Facility: [facility] Address: [address] Performed By: #### 5 7021-8 ####[facility] LABORATORYCLIA [id number] [address] Platelets (Bld) [#/Vol] 238 10*3/uL Normal 150-400 [facility] Comment on above: Order Comment: Speci men Type: BLOOD SPECIMENOrdering Facility: [facility] Address: [address] [place] [address] Performed By: #### 5 7021-8 ####[facility] LABORATORYCLIA [id number] [address] [place] RBC (Bld) [#/Vol] 3.24 10*6/uL Low 4.20-6.00 [facility] Comment on above: Order Comment: Speci men Type: BLOOD SPECIMENOrdering Facility: [facility] Address: [address] [place] [address] Performed By: #### 5 7021-8 ####[facility] LABORATORYCLIA [id number] [address] [facility] WBC (Bld) [#/Vol] 8.76 10*3/uL Normal 3.70-11.00 [facility] Comment on above: Order Comment: Speci men Type: BLOOD SPECIMENOrdering Facility: [facility] Address: [address] [place] [address] Performed By: #### 5 7021-8 ####[facility] LABORATORYCLIA [id number] [address] MRI BRAIN WO/W IVCONon 07-28 MRI BRAIN WO/W IVCON Normal [facility] Magnesium SerPl-mCncon 07-28 Magnesium [Mass/Vol] 2.5 mg/dL High 1.7-2.3 [facility] Comment on above: Order Comment: Speci men Type: BLOOD SPECIMENOrdering Facility: [facility] Address: [address] [place] [address] Performed By: #### 1 4338-8, 32367-3, 2777-1, 53820-1 ####[facility] LABORATORYCLIA [id number] [address] [place] NURSING PROGon 07-28-2021 NURSING PROG Normal [facility] NURSING PROG Normal [facility] Phosphate SerPl-mCncon 07-28 Phosphate [Mass/Vol] 2.8 mg/dL Normal 2.7-4.8 [facility] Comment on above: Order Comment: Speci men Type: BLOOD SPECIMENOrdering Facility: [facility] Address: [address] [place] [address] Performed By: #### 1 4338-8, 65994-6, 2777-1, 46115-8 ####[facility] LABORATORYCLIA [id number] [address] OF [facility] Prealbumin [Mass/Vol]on 07-06 Prealbumin Nephelometry [Mass/Vol] 25 mg/dL Normal 17-36 [facility] Comment on above: Order Comment: Speci men Type: BLOOD SPECIMENOrdering Facility: [facility] Address: [address] [place] [address] Performed By: #### 1 4338-8, 66473-7, 2777-1, 73966-8 ####[facility]ELCLIA [id number] [address] OF [facility] aPTT PPPon 07-28-2021 aPTT Coag (PPP) [Time] 53.0 s High 23.0-32.4 [facility] Comment on above: Order Comment: Speci men Type: BLOOD SPECIMENOrdering Facility: [facility] Address: [address] [place] [address] Performed By: #### 1 4979-9 ####[facility]MELCLIA [id number] [address] [place] OF [facility] aPTT Coag (PPP) [Time] 57.2 s High 23.0-32.4 [facility] Comment on above: Order Comment: Speci men Type: BLOOD SPECIMENOrdering Facility: [facility] Address: [address] [place] [address] Performed By: #### 1 4979-9 ####[facility] LABORATORYCLIA [id number] [address] OF [facility] Bacteria CSF Culton 07-28-19 22 Bacteria identified Cx Nom (CSF) CULTURE, CSF: No growth 14 days GRAM STAIN: No organisms seen Rare Polymorphonuclear leukocytes Rare Red Blood Cells Gram stain performed on cytospun specimen. Normal [facility] Comment on above: Performed By: #### 6 06-4 ####[facility] LABORATORYCLIA [id number] [address] [place] Bacteria Spec Resp Culton Bacteria identified Respiratory culture Nom (Unsp spec) CULTURE, RESPIRATORY: Rare Normal respiratory chris present GRAM STAIN: No organisms seen Rare Polymorphonuclear leukocytes Rare Epithelial cells Normal [facility] Comment on above: Performed By: #### 3 2355-0 ####[facility] LABORATORYCLIA [id number] [address] [place] CASE MANAGEMon 07-27-2021 CASE MANAGEM Normal [facility] CBC W Auto Differential pane l (Bld)on 07-27-2021 Basophils (Bld) [#/Vol] 0.04 10*3/uL Normal <0.11 [facility] Comment on above: Order Comment: Speci men Type: BLOOD SPECIMENOrdering Facility: [facility] Address: [address] [place] [address] Performed By: #### 5 7021-8 ####[facility] LABORATORYCLIA [id number] [address] [place] Basophils/100 WBC (Bld) 0.4 % Normal [facility] Comment on above: Order Comment: Speci men Type: BLOOD SPECIMENOrdering Facility: [facility] Address: [address] [place] [address] Performed By: #### 5 7021-8 ####[facility] LABORATORYCLIA [id number] [address] [place] Differential cell count method Nom (Bld) Auto Normal [facility] Comment on above: Order Comment: Speci men Type: BLOOD SPECIMENOrdering Facility: [facility] Address: [address] [place] [address] Performed By: #### 5 7021-8 ####[facility] LABORATORYCLIA [id number] [place] [address] [place] Eosinophils (Bld) [#/Vol] 0.50 10*3/uL High <0.46 [facility] Comment on above: Order Comment: Speci men Type: BLOOD SPECIMENOrdering Facility: [facility] Address: [address] [place] [address] Performed By: #### 5 7021-8 ####[facility] LABORATORYCLIA [id number] [address] Eosinophils/100 WBC (Bld) 5.2 % Normal [facility] Comment on above: Order Comment: Speci men Type: BLOOD SPECIMENOrdering Facility: [facility] Address: [address] [place] [address] Performed By: #### 5 7021-8 ####[facility] LABORATORYCLIA [id number] [address] Erythrocyte distribution width (RBC) [Ratio] 16.8 % High 11.5-15.0 [facility] Comment on above: Order Comment: Speci men Type: BLOOD SPECIMENOrdering Facility: [facility] Address: [address] [place] [address] Performed By: #### 5 7021-8 ####[facility] LABORATORYCLIA [id number] [address] Hematocrit (Bld) [Volume fraction] 29.8 % Low 39.0-51.0 [facility] Comment on above: Order Comment: Speci men Type: BLOOD SPECIMENOrdering Facility: [facility] Address: [address] [place] [address] Performed By: #### 5 7021-8 ####[facility] LABORATORYCLIA [id number] [address] Hemoglobin (Bld) [Mass/Vol] 9.0 g/dL Low 13.0-17.0 [facility] Comment on above: Order Comment: Speci men Type: BLOOD SPECIMENOrdering Facility: [facility] Address: [address] [place] [address] Performed By: #### 5 7021-8 ####[facility]ATORYCLIA [id number] [address] [place] IMMATURE GRAN % 0.6 % Normal [facility] Comment on above: Order Comment: Speci men Type: BLOOD SPECIMENOrdering Facility: [facility] Address: [address] [place] [address] Performed By: #### 5 7021-8 ####[facility] LABORATORYCLIA [id number] [address] [facility] IMMATURE GRAN ABS 0.06 k/uL Normal <0.10 [facility] Comment on above: Order Comment: Speci men Type: BLOOD SPECIMENOrdering Facility: [facility] Address: [address] [place] [address] Performed By: #### 5 7021-8 ####[facility] LABORATORYCLIA [id number] [address] Lymphocytes (Bld) [#/Vol] 1.73 10*3/uL Normal 1.00-4.00 [facility] Comment on above: Order Comment: Speci men Type: BLOOD SPECIMENOrdering Facility: [facility] Address: [address] [place] [address] Performed By: #### 5 7021-8 ####[facility] LABORATORYCLIA [id number] [address] Lymphocytes/100 WBC (Bld) 17.9 % Normal [facility] Comment on above: Order Comment: Speci men Type: BLOOD SPECIMENOrdering Facility: [facility] Address: [address] [place] [address] Performed By: #### 5 7021-8 ####[facility] LABORATORYCLIA [id number] [address] [place] MCH (RBC) [Entitic mass] 28.1 pg Normal 26.0-34.0 [facility] Comment on above: Order Comment: Speci men Type: BLOOD SPECIMENOrdering Facility: [facility] Address: [address] [place] [address] Performed By: #### 5 7021-8 ####[facility] LABORATORYCLIA [id number] [address] MCHC (RBC) [Mass/Vol] 30.2 g/dL Low 30.5-36.0 [facility] Comment on above: Order Comment: Speci men Type: BLOOD SPECIMENOrdering Facility: [facility] Address: [address] [place] [address] Performed By: #### 5 7021-8 ####[facility] LABORATORYCLIA [id number] [address] [place] MCV (RBC) [Entitic vol] 93.1 fL Normal 80.0-100.0 [facility] Comment on above: Order Comment: Speci men Type: BLOOD SPECIMENOrdering Facility: [facility] Address: [address] [place] [address] Performed By: #### 5 7021-8 ####[facility] LABORATORYCLIA [id number] [address] [place] Monocytes (Bld) [#/Vol] 0.59 10*3/uL Normal <0.87 [facility] Comment on above: Order Comment: Speci men Type: BLOOD SPECIMENOrdering Facility: [facility] Address: [address] [place] [address] Performed By: #### 5 7021-8 ####[facility] LABORATORYCLIA [id number] [address] Monocytes/100 WBC (Bld) 6.1 % Normal [facility] Comment on above: Order Comment: Speci men Type: BLOOD SPECIMENOrdering Facility: [facility] Address: [address] [place] [address] Performed By: #### 5 7021-8 ####[facility] LABORATORYCLIA [id number] [address] [place] Neutrophils (Bld) [#/Vol] 6.75 10*3/uL Normal 1.45-7.50 [facility] Comment on above: Order Comment: Speci men Type: BLOOD SPECIMENOrdering Facility: [facility] Address: [address] [place] [address] Performed By: #### 5 7021-8 ####[facility]ATORYCLIA [id number] [address] Neutrophils/100 WBC (Bld) 69.8 % Normal [facility] Comment on above: Order Comment: Speci men Type: BLOOD SPECIMENOrdering Facility: [facility] Address: [address] [place] [address] Performed By: #### 5 7021-8 ####[facility] LABORATORYCLIA [id number] [address] [place] Nucleated RBC (Bld) [#/Vol] 10*3/uL Normal <0.01 [facility] Comment on above: Order Comment: Speci men Type: BLOOD SPECIMENOrdering Facility: [facility] Address: [address] [place] [address] Performed By: #### 5 7021-8 ####[facility] LABORATORYCLIA [id number] [address] Nucleated RBC/100 WBC (Bld) [Ratio] 0.0 /100 WBC Normal [facility] Comment on above: Order Comment: Speci men Type: BLOOD SPECIMENOrdering Facility: [facility] Address: [address] [place] [address] Performed By: #### 5 7021-8 ####[facility] LABORATORYCLIA [id number] [address] [place] Platelet mean volume (Bld) [Entitic vol] 11.3 fL Normal 9.0-12.7 [facility] Comment on above: Order Comment: Speci men Type: BLOOD SPECIMENOrdering Facility: [facility] Address: [address] [place] [address] Performed By: #### 5 7021-8 ####[facility] LABORATORYCLIA [id number] [place] [address] [place] Platelets (Bld) [#/Vol] 227 10*3/uL Normal 150-400 [facility] Comment on above: Order Comment: Speci men Type: BLOOD SPECIMENOrdering Facility: [facility] Address: [address] [place] [address] Performed By: #### 5 7021-8 ####[facility] LABORATORYCLIA [id number] [place] [address] [place] RBC (Bld) [#/Vol] 3.20 10*6/uL Low 4.20-6.00 [facility] Comment on above: Order Comment: Speci men Type: BLOOD SPECIMENOrdering Facility: [facility] Address: [address] [place] [address] Performed By: #### 5 7021-8 ####[facility] LABORATORYCLIA [id number] [address] [facility] WBC (Bld) [#/Vol] 9.67 10*3/uL Normal 3.70-11.00 [facility] Comment on above: Order Comment: Speci men Type: BLOOD SPECIMENOrdering Facility: [facility] Address: [address] [place] [address] Performed By: #### 5 7021-8 ####[facility] LABORATORYCLIA [id number] [address] [facility] CONSULT PROGon 07-27-2021 CONSULT PROG Normal [facility] CSF MANUAL DIFFon 07-27-2021 DIF TTL, CSF 100 cells counted Normal [facility] Comment on above: Order Comment: Speci men Type: CEREBROSPINAL FLUIDOrdering Facility: [facility] Address: [address] [place] [address] Performed By: #### L [id number], 85974-5, [id number] ####[facility] LABORATORYCLIA [id number] [address] [place] LYMPH%, CSF 75 % Normal 50-90 [facility] Comment on above: Order Comment: Speci men Type: CEREBROSPINAL FLUIDOrdering Facility: [facility] Address: [address] [place] [address] Performed By: #### L [id number], 12534-2, [id number] ####[facility] LABORATORYCLIA [id number] [place] [address] [place] MONO%, CSF 22 % Normal 10-50 [facility] Comment on above: Order Comment: Speci men Type: CEREBROSPINAL FLUIDOrdering Facility: [facility] Address: [address] [place] [address] Performed By: #### L PE5128, 04598-0, [id number] ####[facility] LABORATORYCLIA [id number] [place] [address] [place] NEUT%, CSF 2 % Normal 0-3 [facility] Comment on above: Order Comment: Speci men Type: CEREBROSPINAL FLUIDOrdering Facility: [facility] Address: [address] [place] [address] Performed By: #### L [id number], 32029-0, [id number] ####[facility] LABORATORYCLIA [id number] [address] OTHER CL%, CSF 1 % Normal [facility] Comment on above: Order Comment: Speci men Type: CEREBROSPINAL FLUIDOrdering Facility: [facility] Address: [address] [place] [address] Result Comment: Path ologist review of microscopy results to follow Performed By: #### L [id number], 52361-2, [id number] ####[facility] LABORATORYCLIA [id number] [address] CSF PATHOLOGIST INTERP (LAB REFLEX ORDER-NO BILL)on 07-27-2021 CSF STAFF REVIEW Negative Normal [facility] Comment on above: Order Comment: Speci men Type: CEREBROSPINAL FLUIDOrdering Facility: [facility] Address: [address] [place] [address] Performed By: #### L [id number], 30180-2, [id number] ####[facility] LABORATORYCLIA [id number] [address] Pathologist name Reviewed by Amador Stevens MD Normal [facility] Comment on above: Order Comment: Speci men Type: CEREBROSPINAL FLUIDOrdering Facility: [facility] Address: [address] [place] [address] Performed By: #### L OB1030, 00283-6, [id number] ####[facility]ATORYCLIA [id number] [address] [place] Cell count panel (CSF)on Clarity (CSF) Clear Normal Clear [facility] Comment on above: Order Comment: Speci men Type: CEREBROSPINAL FLUIDOrdering Facility: [facility] Address: [address] [place] [address] Performed By: #### L [id number], 21794-8, [id number] ####[facility]ATORYCLIA [id number] [address] Clarity (Unsp spec) Not Indicated Normal Clear [facility] Comment on above: Order Comment: Speci men Type: CEREBROSPINAL FLUIDOrdering Facility: [facility] Address: [address] [place] [address] Performed By: #### L [id number], 94165-3, [id number] ####[facility]ATORYCLIA [id number] [address] Color (CSF) Colorless Normal Colorless [facility] Comment on above: Order Comment: Speci men Type: CEREBROSPINAL FLUIDOrdering Facility: [facility] Address: [address] [place] [address] Performed By: #### L [id number], 68934-2, [id number] ####[facility]ATORYCLIA [id number] [address] Color (Spun CSF) Not Indicated Normal Colorless [facility] Comment on above: Order Comment: Speci men Type: CEREBROSPINAL FLUIDOrdering Facility: [facility] Address: [facility] [place] [address] Performed By: #### L [id number], 73102-0, [id number] ####[facility]ATORYCLIA [id number] [address] CSF TUBE [employer] Normal [facility] Comment on above: Order Comment: Speci men Type: CEREBROSPINAL FLUIDOrdering Facility: [facility] Address: [address] [place] [address] Performed By: #### L CS2721, 40912-2, [id number] ####[facility] LABORATORYCLIA [id number] [address] RBC Manual cnt (CSF) [#/Vol] 39 cells/uL High 0-5 [facility] Comment on above: Order Comment: Speci men Type: CEREBROSPINAL FLUIDOrdering Facility: [facility] Address: [address] [place] [address] Performed By: #### L [id number], 34637-9, [id number] ####[facility] LABORATORYCLIA [id number] [address] WBC Manual cnt (CSF) [#/Vol] 14 cells/uL High 0-5 [facility] Comment on above: Order Comment: Speci men Type: CEREBROSPINAL FLUIDOrdering Facility: [facility] Address: [address] [place] [address] Performed By: #### L [id number], 93898-9, [id number] ####[facility] LABORATORYCLIA [id number] [address] [facility] Glucose CSF-mCncon 2 Glucose (CSF) [Mass/Vol] 64 mg/dL Normal 40-70 [facility] Comment on above: Order Comment: Speci men Type: CEREBROSPINAL FLUIDOrdering Facility: [facility] Address: [address] [place] [address] Result Comment: Lumb ar CSF glucose values of healthy patients are approximately 60% of the plasma values and must always be compared with a concurrently measured plasma value for adequate clinical interpretation.References: 1. Glucose HK (GLUC3) [package insert V 12.0 American]. [employer], [place], [place]. September 2015. 2. Michelle Moore, Michelle Manjarrez (2015). Chapter 7: Glucose and Lactate. Marianela Alcocer al.(eds.), Cerebrospinal Fluid in Clinical Neurology. [place]: [employer]Names. Performed By: #### 2 342-4, 2880-3 ####[facility] LABORATORYCLIA [id number] [address] [facility] NUTRITIONon 07-27-2021 NUTRITION Normal [facility] Prot CSF-mCncon 07-27-2021 Protein (CSF) [Mass/Vol] 58 mg/dL High 15-45 [facility] Comment on above: Order Comment: Speci men Type: CEREBROSPINAL FLUIDOrdering Facility: [facility] Address: [address] [place] [address] Performed By: #### 2 342-4, 2880-3 ####[facility] LABORATORYCLIA [id number] [address] aPTT PPPon 07-27-2021 aPTT Coag (PPP) [Time] 68.4 s High 23.0-32.4 [facility] Comment on above: Order Comment: Speci men Type: BLOOD SPECIMENOrdering Facility: [facility] Address: [address] [place] [address] Performed By: #### 1 4979-9 ####[facility] LABORATORYCLIA [id number] [address] aPTT Coag (PPP) [Time] 51.3 s High 23.0-32.4 [facility] Comment on above: Order Comment: Speci men Type: BLOOD SPECIMENOrdering Facility: [facility] Address: [address] [place] [address] Performed By: #### 1 4979-9 ####[facility] LABORATORYCLIA [id number] [address] ALLIED HEALTHon 07-26-2021 ALLIED HEALTH HNO ID: [id number] Author: Stephanie Maldonado, wind turbine electrical engineer Service: Radiology Author Type: Manager Science Type: Allied Health Filed: 07/26/2021 4:10 PM Note Text: Spoke with nurse. Pt getting new EVD today. Try tomorrow. Normal [facility] Bacteria CSF Culton 07-27-19 Bacteria identified Cx Nom (CSF) Abnormal [facility] Comment on above: Performed By: #### 6 06-4 ####[facility] LABORATORYCLIA [id number] [place] [address] [place] Basic metabolic 2000 panelon 07-26-2021 Anion gap [Moles/Vol] 6 mmol/L Low 9-18 [facility] Comment on above: Order Comment: Speci men Type: BLOOD SPECIMENOrdering Facility: [facility] Address: [address] [place] [address] Performed By: #### 2 4321-2 ####[facility] LABORATORYCLIA [id number] [place] [address] [place] Calcium [Mass/Vol] 9.2 mg/dL Normal 8.5-10.2 [facility] Comment on above: Order Comment: Speci men Type: BLOOD SPECIMENOrdering Facility: [facility] Address: [address] [place] [address] Performed By: #### 2 4321-2 ####[facility] LABORATORYCLIA [id number] [place] [address] [place] Chloride [Moles/Vol] 99 mmol/L Normal 97-105 [facility] Comment on above: Order Comment: Speci men Type: BLOOD SPECIMENOrdering Facility: [facility] Address: [address] [place] [address] Performed By: #### 2 4321-2 ####[facility] LABORATORYCLIA [id number] [place] [address] [place] CO2 [Moles/Vol] 32 mmol/L High 22-30 [facility] Comment on above: Order Comment: Speci men Type: BLOOD SPECIMENOrdering Facility: [facility] Address: [address] [place] [address] Performed By: #### 2 4321-2 ####[facility] LABORATORYCLIA [id number] [address] [place] Creatinine [Mass/Vol] 0.74 mg/dL Normal 0.73-1.22 [facility] Comment on above: Order Comment: Shira francia Type: BLOOD SPECIMENOrdering Facility: [facility] Address: [address] [place] [address] Performed By: #### 2 4321-2 ####[facility] LABORATORYCLIA [id number] [address] [place] ESTIMATED GLOMERULAR FILTRATION RATE 98 mL/min/1.73m??? Normal >=60 [facility] Comment on above: Order Comment: Shira feldman Type: BLOOD SPECIMENOrdering Facility: [facility] Address: [address] [place] [address] Result Comment: Luzmaria mated Glomerular Filtration Rate [...] actual GFR. Performed By: #### 2 4321-2 ####[facility]ITALIA [id number] [address] [place] Glucose [Mass/Vol] 126 mg/dL High 74-99 [facility] Comment on above: Order Comment: Shira feldman Type: BLOOD SPECIMENOrdering Facility: [facility] Address: [address] [place] [address] Result Comment: The Citizen [place] Diabetes Association (ADA) provides guidance for cutoff [...] Standards of Medical Care in Diabetes 2016, [place] Diabetes Association. Diabetes Care. 2016.39(Suppl 1). Performed By: #### 2 4321-2 ####[facility] LABORATORYCLIA [id number] [address] Potassium [Moles/Vol] 4.2 mmol/L Normal 3.7-5.1 [facility] Comment on above: Order Comment: Speci men Type: BLOOD SPECIMENOrdering Facility: [facility] Address: [address] [place] [address] Performed By: #### 2 4321-2 ####[facility] LABORATORYCLIA [id number] [address] Sodium [Moles/Vol] 137 mmol/L Normal 136-144 [facility] Comment on above: Order Comment: Speci men Type: BLOOD SPECIMENOrdering Facility: [facility] Address: [address] [place] [address] Performed By: #### 2 4321-2 ####[facility] LABORATORYCLIA [id number] [address] Urea nitrogen [Mass/Vol] 36 mg/dL High 9-24 [facility] Comment on above: Order Comment: Speci men Type: BLOOD SPECIMENOrdering Facility: [facility] Address: [address] [address] Performed By: #### 2 4321-2 ####[facility] LABORATORYCLIA [id number] [address] [place] CBC W Auto Differential pane l (Bld)on 07-26-2021 Basophils (Bld) [#/Vol] 0.04 10*3/uL Normal <0.11 [facility] Comment on above: Order Comment: Speci men Type: BLOOD SPECIMENOrdering Facility: [facility] Address: [address] [address] Performed By: #### 5 7021-8 ####[facility]ORATORYCLIA [id number] [address] [place] Basophils/100 WBC (Bld) 0.4 % Normal [facility] Comment on above: Order Comment: Speci men Type: BLOOD SPECIMENOrdering Facility: [facility] Address: [address] [place] [address] Performed By: #### 5 7021-8 ####[facility] LABORATORYCLIA [id number] [address] [place] Differential cell count method Nom (Bld) Auto Normal [facility] Comment on above: Order Comment: Speci men Type: BLOOD SPECIMENOrdering Facility: [facility] Address: [address] [place] [address] Performed By: #### 5 7021-8 ####[facility] LABORATORYCLIA [id number] [place] [address] [place] Eosinophils (Bld) [#/Vol] 0.63 10*3/uL High <0.46 [facility] Comment on above: Order Comment: Speci men Type: BLOOD SPECIMENOrdering Facility: [facility] Address: [address] [place] [address] Performed By: #### 5 7021-8 ####[facility] LABORATORYCLIA [id number] [address] [place] Eosinophils/100 WBC (Bld) 5.8 % Normal [facility] Comment on above: Order Comment: Speci men Type: BLOOD SPECIMENOrdering Facility: [facility] Address: [address] [place] [address] Performed By: #### 5 7021-8 ####[facility] LABORATORYCLIA [id number] [address] [place] Erythrocyte distribution width (RBC) [Ratio] 16.8 % High 11.5-15.0 [facility] Comment on above: Order Comment: Speci men Type: BLOOD SPECIMENOrdering Facility: [facility] Address: [address] [place] [address] Performed By: #### 5 7021-8 ####[facility] LABORATORYCLIA [id number] [address] Hematocrit (Bld) [Volume fraction] 31.2 % Low 39.0-51.0 [facility] Comment on above: Order Comment: Speci men Type: BLOOD SPECIMENOrdering Facility: [facility] Address: [address] [place] [address] Performed By: #### 5 7021-8 ####[facility] LABORATORYCLIA [id number] [address] Hemoglobin (Bld) [Mass/Vol] 9.1 g/dL Low 13.0-17.0 [facility] Comment on above: Order Comment: Speci men Type: BLOOD SPECIMENOrdering Facility: [facility] Address: [address] [place] [address] Performed By: #### 5 7021-8 ####[facility] LABORATORYCLIA [id number] [address] IMMATURE GRAN % 0.6 % Normal [facility] Comment on above: Order Comment: Speci men Type: BLOOD SPECIMENOrdering Facility: [facility] Address: [address] [place] [address] Performed By: #### 5 7021-8 ####[facility] LABORATORYCLIA [id number] [address] IMMATURE GRAN ABS 0.07 k/uL Normal <0.10 [facility] Comment on above: Order Comment: Speci men Type: BLOOD SPECIMENOrdering Facility: [facility] Address: [address] [place] [address] Performed By: #### 5 7021-8 ####[facility] LABORATORYCLIA [id number] [address] Lymphocytes (Bld) [#/Vol] 2.16 10*3/uL Normal 1.00-4.00 [facility] Comment on above: Order Comment: Speci men Type: BLOOD SPECIMENOrdering Facility: [facility] Address: [address] [place] [address] Performed By: #### 5 7021-8 ####[facility] LABORATORYCLIA [id number] [address] Lymphocytes/100 WBC (Bld) 20.0 % Normal [facility] Comment on above: Order Comment: Speci men Type: BLOOD SPECIMENOrdering Facility: [facility] Address: [address] [place] [address] Performed By: #### 5 7021-8 ####[facility] LABORATORYCLIA [id number] [address] MCH (RBC) [Entitic mass] 27.7 pg Normal 26.0-34.0 [facility] Comment on above: Order Comment: Speci men Type: BLOOD SPECIMENOrdering Facility: [facility] Address: [address] [place] [address] Performed By: #### 5 7021-8 ####[facility] LABORATORYCLIA [id number] [address] STATES [facility] MCHC (RBC) [Mass/Vol] 29.2 g/dL Low 30.5-36.0 [facility] Comment on above: Order Comment: Speci men Type: BLOOD SPECIMENOrdering Facility: [facility] Address: [address] [place] [address] Performed By: #### 5 7021-8 ####[facility] LABORATORYCLIA [id number] [address] STATES [facility] MCV (RBC) [Entitic vol] 95.1 fL Normal 80.0-100.0 [facility] Comment on above: Order Comment: Speci men Type: BLOOD SPECIMENOrdering Facility: [facility] Address: [address] [place] [address] Performed By: #### 5 7021-8 ####[facility] LABORATORYCLIA [id number] [address] Monocytes (Bld) [#/Vol] 0.63 10*3/uL Normal <0.87 [facility] Comment on above: Order Comment: Speci men Type: BLOOD SPECIMENOrdering Facility: [facility] Address: [address] [place] [address] Performed By: #### 5 7021-8 ####[facility] LABORATORYCLIA [id number] [address] [place] Monocytes/100 WBC (Bld) 5.8 % Normal [facility] Comment on above: Order Comment: Speci men Type: BLOOD SPECIMENOrdering Facility: [facility] Address: [address] [place] [address] Performed By: #### 5 7021-8 ####[facility] LABORATORYCLIA [id number] [address] [place] Neutrophils (Bld) [#/Vol] 7.25 10*3/uL Normal 1.45-7.50 [facility] Comment on above: Order Comment: Speci men Type: BLOOD SPECIMENOrdering Facility: [facility] Address: [address] [place] [address] Performed By: #### 5 7021-8 ####[facility] LABORATORYCLIA [id number] [address] [place] Neutrophils/100 WBC (Bld) 67.4 % Normal [facility] Comment on above: Order Comment: Speci men Type: BLOOD SPECIMENOrdering Facility: [facility] Address: [address] [address] Performed By: #### 5 7021-8 ####[facility] LABORATORYCLIA [id number] [place] [address] [place] Nucleated RBC (Bld) [#/Vol] 10*3/uL Normal <0.01 [facility] Comment on above: Order Comment: Speci men Type: BLOOD SPECIMENOrdering Facility: [facility] Address: [address] [place] [address] Performed By: #### 5 7021-8 ####[facility]ORATORYCLIA [id number] [address] [place] Nucleated RBC/100 WBC (Bld) [Ratio] 0.0 /100 WBC Normal [facility] Comment on above: Order Comment: Speci men Type: BLOOD SPECIMENOrdering Facility: [facility] Address: [address] [place] [address] Performed By: #### 5 7021-8 ####[facility] LABORATORYCLIA [id number] [address] [place] Platelet mean volume (Bld) [Entitic vol] 11.2 fL Normal 9.0-12.7 [facility] Comment on above: Order Comment: Speci men Type: BLOOD SPECIMENOrdering Facility: [facility] Address: [address] [place] [address] Performed By: #### 5 7021-8 ####[facility] LABORATORYCLIA [id number] [address] [place] Platelets (Bld) [#/Vol] 245 10*3/uL Normal 150-400 [facility] Comment on above: Order Comment: Speci men Type: BLOOD SPECIMENOrdering Facility: [facility] Address: [address] [place] [address] Performed By: #### 5 7021-8 ####[facility] LABORATORYCLIA [id number] [address] [place] RBC (Bld) [#/Vol] 3.28 10*6/uL Low 4.20-6.00 [facility] Comment on above: Order Comment: Speci men Type: BLOOD SPECIMENOrdering Facility: [facility] Address: [address] [place] [address] Performed By: #### 5 7021-8 ####[facility] LABORATORYCLIA [id number] [address] [place] WBC (Bld) [#/Vol] 10.78 10*3/uL Normal 3.70-11.00 [facility] Comment on above: Order Comment: Speci men Type: BLOOD SPECIMENOrdering Facility: [facility] Address: [address] [place] [address] Performed By: #### 5 7021-8 ####[facility]ORATORYCLIA [id number] [address] CSF MANUAL DIFFon 07-26-2021 DIF TTL, CSF 100 cells counted Normal [facility] Comment on above: Order Comment: Speci men Type: CEREBROSPINAL FLUIDOrdering Facility: [facility] Address: [address] [place] [address] Performed By: #### 3 4563-7, [id number], [id number] ####[facility]ORATORYCLIA [id number] [address] [place] LYMPH%, CSF 26 % Low 50-90 [facility] Comment on above: Order Comment: Speci men Type: CEREBROSPINAL FLUIDOrdering Facility: [facility] Address: [address] [place] [address] Performed By: #### 3 4563-7, [id number], [id number] ####[facility]ATORYCLIA [id number] [address] [place] MACRO%, CSF 10 % High <1 [facility] Comment on above: Order Comment: Speci men Type: CEREBROSPINAL FLUIDOrdering Facility: [facility] Address: [address] [place] [address] Performed By: #### 3 4563-7, [id number], [id number] ####[facility]ATORYCLIA [id number] [address] [place] MONO%, CSF 20 % Normal 10-50 [facility] Comment on above: Order Comment: Speci men Type: CEREBROSPINAL FLUIDOrdering Facility: [facility] Address: [address] [place] [address] Performed By: #### 3 4563-7, [id number], [id number] ####[facility]ATORYCLIA [id number] [address] NEUT%, CSF 40 % High 0-3 [facility] Comment on above: Order Comment: Speci men Type: CEREBROSPINAL FLUIDOrdering Facility: [facility] Address: [address] [place] [address] Performed By: #### 3 4563-7, [id number], [id number] ####[facility] LABORATORYCLIA [id number] [address] [facility] OTHER CL%, CSF 2 % Normal [facility] Comment on above: Order Comment: Speci men Type: CEREBROSPINAL FLUIDOrdering Facility: [facility] Address: [address] [place] [address] Result Comment: Path review to follow. Performed By: #### 3 4563-7, [id number], [id number] ####[facility] LABORATORYCLIA [id number] [address] REAC LYMPH %, CSF 2 % Normal [facility] Comment on above: Order Comment: Speci men Type: CEREBROSPINAL FLUIDOrdering Facility: [facility] Address: [address] [place] [address] Performed By: #### 3 4563-7, [id number], [id number] ####[facility] LABORATORYCLIA [id number] [address] CSF PATHOLOGIST INTERP (LAB REFLEX ORDER-NO BILL)on 07-26-2021 CSF STAFF REVIEW Negative for maligna nt cells. Rare bacteria present, cocci in pairs and chains. Correlation with CSF cultures is recommended. Normal [facility] Comment on above: Order Comment: Speci men Type: CEREBROSPINAL FLUIDOrdering Facility: [facility] Address: [address] [place] [address] Performed By: #### 3 4563-7, [id number], [id number] ####[facility] LABORATORYCLIA [id number] [address] Pathologist name Reviewed by Amador Stevens MD [facility] Comment on above: Order Comment: Speci men Type: CEREBROSPINAL FLUIDOrdering Facility: [facility] Address: [address] [place] [address] Performed By: #### 3 4563-7, [id number], [id number] ####[facility]ATORYCLIA [id number] [address] Cell count panel (CSF)on Clarity (CSF) Slightly Cloudy Abnormal Clear [facility] Comment on above: Order Comment: Speci men Type: CEREBROSPINAL FLUIDOrdering Facility: [facility] Address: [address] [place] [address] Performed By: #### 3 4563-7, [id number], [id number] ####[facility]ATORYCLIA [id number] [address] Clarity (Unsp spec) Clear Normal Clear [facility] Comment on above: Order Comment: Speci men Type: CEREBROSPINAL FLUIDOrdering Facility: [facility] Address: [address] [place] [address] Performed By: #### 3 4563-7, [id number], [id number] ####[facility] LABORATORYCLIA [id number] [address] Color (CSF) Colorless Normal Colorless [facility] Comment on above: Order Comment: Speci men Type: CEREBROSPINAL FLUIDOrdering Facility: [facility] Address: [address] [place] [address] Performed By: #### 3 4563-7, [id number], [id number] ####[facility]ORATORYCLIA [id number] [address] Color (Spun CSF) Not Indicated Normal Colorless [facility] Comment on above: Order Comment: Speci men Type: CEREBROSPINAL FLUIDOrdering Facility: [facility] Address: [address] [place] [address] Performed By: #### 3 4563-7, [id number], [id number] ####[facility]ORATORYCLIA [id number] [address] CSF TUBE NUMBER [employer] Normal [facility] Comment on above: Order Comment: Speci men Type: CEREBROSPINAL FLUIDOrdering Facility: [facility] Address: [address] [place] [address] Performed By: #### 3 4563-7, [id number], [id number] ####[facility] LABORATORYCLIA [id number] [address] STATES OF [facility] RBC Manual cnt (CSF) [#/Vol] 1 cells/uL Normal 0-5 [facility] Comment on above: Order Comment: Speci men Type: CEREBROSPINAL FLUIDOrdering Facility: [facility] Address: [address] [place] [address] Performed By: #### 3 4563-7, [id number], [id number] ####[facility] LABORATORYCLIA [id number] [address] WBC Manual cnt (CSF) [#/Vol] 50 cells/uL High 0-5 [facility] Comment on above: Order Comment: Speci men Type: CEREBROSPINAL FLUIDOrdering Facility: [facility] Address: [address] [place] [address] Performed By: #### 3 4563-7, [id number], [id number] ####[facility] LABORATORYCLIA [id number] [address] [place] Glucose CSF-mCncon 2 Glucose (CSF) [Mass/Vol] 64 mg/dL Normal 40-70 [facility] Comment on above: Order Comment: Speci men Type: CEREBROSPINAL FLUIDOrdering Facility: [facility] Address: [address] [place] [address] Result Comment: Lumb ar CSF glucose values of healthy patients are approximately 60% of the plasma values and must always be compared with a concurrently measured plasma value for adequate clinical interpretation.References: 1. Glucose HK (GLUC3) [package insert V 12.0 American]. [employer], [place], [place]. September 2015. 2. Michelle Moore, Loki, H. (2015). Chapter 7: Glucose and Lactate. F. Irina rose al.(eds.), Cerebrospinal Fluid in Clinical Neurology. [place]: [employer]. Performed By: #### 2 880-3, 2341-4 ####[facility] LABORATORYCLIA [id number] [address] Magnesium SerPl-mCncon 07-26 Magnesium [Mass/Vol] 2.3 mg/dL Normal 1.7-2.3 [facility] Comment on above: Order Comment: Speci men Type: BLOOD SPECIMENOrdering Facility: [facility] Address: [address] [place] [address] Performed By: #### 1 9123-9, 2777-1, 6-3 ####[facility] LABORATORYCLIA [id number] [address] NURSING PROGon 07-26-2021 NURSING PROG Normal [facility] Phosphate SerPl-mCncon 07-26 Phosphate [Mass/Vol] 2.6 mg/dL Low 2.7-4.8 [facility] Comment on above: Order Comment: Speci men Type: BLOOD SPECIMENOrdering Facility: [facility] Address: [address] [place] [address] Performed By: #### 1 9123-9, 2777-1, 3015-3 ####[facility] LABORATORYCLIA [id number] [address] Prot CSF-mCncon 07-26-2021 Protein (CSF) [Mass/Vol] 64 mg/dL High 15-45 [facility] [facility] Comment on above: Order Comment: Speci men Type: CEREBROSPINAL FLUIDOrdering Facility: [facility] Address: [address] [place] [address] Performed By: #### 2 880-3, 4 ####[facility] LABORATORYCLIA [id number] [address] THERAPY NTon 07-26-2021 THERAPY NT Normal [facility] TSH SerPl-aCncon 07-26-2021 TSH Qn 1.470 m[IU]/L Normal 0.270-4.200 [facility] Comment on above: Order Comment: Speci men Type: BLOOD SPECIMENOrdering Facility: [facility] Address: [address] [place] [address] Performed By: #### 1 9123-9, 2777-1, 3016-3 ####[facility] LABORATORYCLIA [id number] [address] VITAMIN B12 BLOODon 07-27-19 Cobalamin (Vitamin B12) [Mass/Vol] 934 pg/mL Normal 232-1,245 [facility] Comment on above: Order Comment: Speci men Type: BLOOD SPECIMENOrdering Facility: [facility] Address: [address] [place] [address] Performed By: #### B 12 ####[facility] [id number] [address] aPTT PPPon 07-26-2021 aPTT Coag (PPP) [Time] 53.6 s High 23.0-32.4 [facility] Comment on above: Order Comment: Speci men Type: BLOOD SPECIMENOrdering Facility: [facility] Address: [address] [place] [address] Performed By: #### 1 4979-9 ####[facility] [id number] [address] aPTT Coag (PPP) [Time] 44.9 s High 23.0-32.4 [facility] Comment on above: Order Comment: Speci men Type: BLOOD SPECIMENOrdering Facility: [facility] Address: [address] [place] [address] Performed By: #### 1 4979-9 ####[facility] LABORATORYCLIA [id number] [address] [facility] ALLIED HEALTHon 07-25-2021 ALLIED HEALTH HNO ID: [id number] Author: RT Rajwinder(R) Service: Radiology Author Type: Technologist Type: Allied Health Filed: 07/25/2021 1:37 PM Note Text: Called floor for MRI screening form [id number] Normal [facility] Bacteria Bld Culton 07-26-19 Bacteria identified Cx Nom (Bld) CULTURE, BLOOD: No growth 5 days Normal [facility] Comment on above: Performed By: #### 6 00-7 ####[facility] LABORATORYCLIA [id number] [address] Bacteria identified Cx Nom (Bld) CULTURE, BLOOD: No growth 5 days Normal [facility] Comment on above: Performed By: #### 6 00-7 ####[facility] LABORATORYCLIA [id number] [address] CASE MANAGEMon 07-25-2021 CASE MANAGEM Normal [facility] CBC W Auto Differential pane l (Bld)on 07-25-2021 Basophils (Bld) [#/Vol] 0.06 10*3/uL Normal <0.11 [facility] Comment on above: Order Comment: Speci men Type: BLOOD SPECIMENOrdering Facility: [facility] Address: [address] [place] [address] Performed By: #### 5 7021-8 ####[facility] LABORATORYCLIA [id number] [address] STATES [facility] Basophils/100 WBC (Bld) 0.6 % Normal [facility] Comment on above: Order Comment: Speci men Type: BLOOD SPECIMENOrdering Facility: [facility] Address: [address] [place] [address] Performed By: #### 5 7021-8 ####[facility] LABORATORYCLIA [id number] [address] Differential cell count method Nom (Bld) Auto Normal [facility] Comment on above: Order Comment: Speci men Type: BLOOD SPECIMENOrdering Facility: [facility] Address: [address] [address] Performed By: #### 5 7021-8 ####[facility]ATORYCLIA [id number] [address] [place] Eosinophils (Bld) [#/Vol] 0.26 10*3/uL Normal <0.46 [facility] Comment on above: Order Comment: Speci men Type: BLOOD SPECIMENOrdering Facility: [facility] Address: [address] [place] [address] Performed By: #### 5 7021-8 ####[facility] LABORATORYCLIA [id number] [address] Eosinophils/100 WBC (Bld) 2.5 % Normal [facility] Comment on above: Order Comment: Speci men Type: BLOOD SPECIMENOrdering Facility: [facility] Address: [address] [place] [address] Performed By: #### 5 7021-8 ####[facility] LABORATORYCLIA [id number] [address] Erythrocyte distribution width (RBC) [Ratio] 16.9 % High 11.5-15.0 [facility] Comment on above: Order Comment: Speci men Type: BLOOD SPECIMENOrdering Facility: [facility] Address: [address] [place] [address] Performed By: #### 5 7021-8 ####[facility] LABORATORYCLIA [id number] [address] [place] Hematocrit (Bld) [Volume fraction] 29.6 % Low 39.0-51.0 [facility] Comment on above: Order Comment: Speci men Type: BLOOD SPECIMENOrdering Facility: [facility] Address: [address] [place] [address] Performed By: #### 5 7021-8 ####[facility] LABORATORYCLIA [id number] [address] [place] Hemoglobin (Bld) [Mass/Vol] 8.8 g/dL Low 13.0-17.0 [facility] Comment on above: Order Comment: Speci men Type: BLOOD SPECIMENOrdering Facility: [facility] Address: [address] [place] [address] Performed By: #### 5 7021-8 ####[facility] LABORATORYCLIA [id number] [address] IMMATURE GRAN % 0.6 % Normal [facility] Comment on above: Order Comment: Speci men Type: BLOOD SPECIMENOrdering Facility: [facility] Address: [address] [place] [address] Performed By: #### 5 7021-8 ####[facility] LABORATORYCLIA [id number] [address] IMMATURE GRAN ABS 0.06 k/uL Normal <0.10 [facility] Comment on above: Order Comment: Speci men Type: BLOOD SPECIMENOrdering Facility: [facility] Address: [address] [place] [address] Performed By: #### 5 7021-8 ####[facility] LABORATORYCLIA [id number] [address] Lymphocytes (Bld) [#/Vol] 2.15 10*3/uL Normal 1.00-4.00 [facility] Comment on above: Order Comment: Speci men Type: BLOOD SPECIMENOrdering Facility: [facility] Address: [address] [place] [address] Performed By: #### 5 7021-8 ####[facility] LABORATORYCLIA [id number] [address] Lymphocytes/100 WBC (Bld) 20.7 % Normal [facility] Comment on above: Order Comment: Speci men Type: BLOOD SPECIMENOrdering Facility: [facility] Address: [address] [place] [address] Performed By: #### 5 7021-8 ####[facility]ORATORYCLIA [id number] [address] [place] MCH (RBC) [Entitic mass] 28.2 pg Normal 26.0-34.0 [facility] Comment on above: Order Comment: Speci men Type: BLOOD SPECIMENOrdering Facility: [facility] Address: [address] [place] [address] Performed By: #### 5 7021-8 ####[facility] LABORATORYCLIA [id number] [address] [place] MCHC (RBC) [Mass/Vol] 29.7 g/dL Low 30.5-36.0 [facility] Comment on above: Order Comment: Speci men Type: BLOOD SPECIMENOrdering Facility: [facility] Address: [address] [place] [address] Performed By: #### 5 7021-8 ####[facility] LABORATORYCLIA [id number] [address] [place] MCV (RBC) [Entitic vol] 94.9 fL Normal 80.0-100.0 [facility] Comment on above: Order Comment: Speci men Type: BLOOD SPECIMENOrdering Facility: [facility] Address: [address] [place] [address] Performed By: #### 5 7021-8 ####[facility] LABORATORYCLIA [id number] [address] [facility] Monocytes (Bld) [#/Vol] 0.62 10*3/uL Normal <0.87 [facility] Comment on above: Order Comment: Speci men Type: BLOOD SPECIMENOrdering Facility: [facility] Address: [address] [place] [address] Performed By: #### 5 7021-8 ####[facility] LABORATORYCLIA [id number] [address] Monocytes/100 WBC (Bld) 6.0 % Normal [facility] Comment on above: Order Comment: Speci men Type: BLOOD SPECIMENOrdering Facility: [facility] Address: [address] [place] [address] Performed By: #### 5 7021-8 ####[facility] LABORATORYCLIA [id number] [address] [place] Neutrophils (Bld) [#/Vol] 7.25 10*3/uL Normal 1.45-7.50 [facility] Comment on above: Order Comment: Speci men Type: BLOOD SPECIMENOrdering Facility: [facility] Address: [address] [address] Performed By: #### 5 7021-8 ####[facility] LABORATORYCLIA [id number] [address] [place] Neutrophils/100 WBC (Bld) 69.6 % Normal [facility] Comment on above: Order Comment: Speci men Type: BLOOD SPECIMENOrdering Facility: [facility] Address: [address] [place] [address] Performed By: #### 5 7021-8 ####[facility] LABORATORYCLIA [id number] [address] [place] Nucleated RBC (Bld) [#/Vol] 10*3/uL Normal <0.01 [facility] Comment on above: Order Comment: Speci men Type: BLOOD SPECIMENOrdering Facility: [facility] Address: [address] [place] [address] Performed By: #### 5 7021-8 ####[facility] LABORATORYCLIA [id number] [address] [place] Nucleated RBC/100 WBC (Bld) [Ratio] 0.0 /100 WBC Normal [facility] Comment on above: Order Comment: Speci men Type: BLOOD SPECIMENOrdering Facility: [facility] Address: [address] [place] [address] Performed By: #### 5 7021-8 ####[facility] LABORATORYCLIA [id number] [address] [place] Platelet mean volume (Bld) [Entitic vol] 11.3 fL Normal 9.0-12.7 [facility] Comment on above: Order Comment: Speci men Type: BLOOD SPECIMENOrdering Facility: [facility] Address: [address] [place], [place] [id number] Performed By: #### 5 7021-8 ####[facility] LABORATORYCLIA [id number] [address] [place] Platelets (Bld) [#/Vol] 243 10*3/uL Normal 150-400 [facility] Comment on above: Order Comment: Speci men Type: BLOOD SPECIMENOrdering Facility: [facility] Address: [address] [place] [address] Performed By: #### 5 7021-8 ####[facility] LABORATORYCLIA [id number] [place] [address] [place] RBC (Bld) [#/Vol] 3.12 10*6/uL Low 4.20-6.00 [facility] Comment on above: Order Comment: Speci men Type: BLOOD SPECIMENOrdering Facility: [facility] Address: [address] [place] [address] Performed By: #### 5 7021-8 ####[facility] LABORATORYCLIA [id number] [address] [facility] WBC (Bld) [#/Vol] 10.40 10*3/uL Normal 3.70-11.00 [facility] Comment on above: Order Comment: Speci men Type: BLOOD SPECIMENOrdering Facility: [facility] Address: [address] [place] [address] Performed By: #### 5 7021-8 ####[facility] LABORATORYCLIA [id number] [address] [facility] CONSULT PROGon 07-25-2021 CONSULT PROG Normal [facility] MYCOPLASMA PNEUM IGMon 07-25 M. PNEUMO IGM, QUAL Negative Normal Negative [facility] Comment on above: Order Comment: Speci men Type: BLOOD SPECIMENOrdering Facility: [facility] Address: [address] [place] [address] Result Comment: Myco plasma pneumoniae IgM antibody test is used as an aid in diagnosis of recent infection with M. pneumoniae. It may occasionally remain elevated for extended periods after an acute infection. Cannot exclude recent infection if the specimen collected 7-10 days after onset of signs and symptoms. Clinical correlation is required. Performed By: #### M YCOPM ####[facility] LABCLIA [id number] [facility] [place] [address] [place] NURSING PROGon 07-25-2021 NURSING PROG Normal [facility] THERAPY NTon 07-25-2021 THERAPY NT Normal [facility] THERAPY NT Normal [facility] aPTT PPPon 07-25-2021 aPTT Coag (PPP) [Time] 62.6 s High 23.0-32.4 [facility] Comment on above: Order Comment: Speci men Type: BLOOD SPECIMENOrdering Facility: [facility] Address: [address] [place] [address] Performed By: #### 1 4979-9 ####[facility] LABORATORYCLIA [id number] [address] [place] Bacteria Ur Culton 2 Bacteria identified Cx Nom (U) CULTURE, URINE: No growth (<100 CFU/ml) Normal [facility] Comment on above: Performed By: #### 6 30-4 ####[facility] LABORATORYCLIA [id number] [place] [address] [place] Basic metabolic 2000 panelon 07-24-2021 Anion gap [Moles/Vol] 13 mmol/L Normal 9-18 [facility] Comment on above: Order Comment: Speci men Type: BLOOD SPECIMENOrdering Facility: [facility] Address: [address] [address] Performed By: #### 1 9123-9, PROCAL, 2777-1, 31985-0 ####[facility] LABORATORYCLIA [id number] [place] [address] [place] Calcium [Mass/Vol] 9.5 mg/dL Normal 8.5-10.2 [facility] Comment on above: Order Comment: Speci men Type: BLOOD SPECIMENOrdering Facility: [facility] Address: [address] [place] [address] Performed By: #### 1 9123-9, PROCAL, 2777-1, 55424-7 ####[facility] LABORATORYCLIA [id number] [address] OF [facility] Chloride [Moles/Vol] 102 mmol/L Normal 97-105 [facility] Comment on above: Order Comment: Speci men Type: BLOOD SPECIMENOrdering Facility: [facility] Address: [address] [place] [address] Performed By: #### 1 9123-9, PROCAL, 7-1, 54849-7 ####[facility] LABORATORYCLIA [id number] [address] OF [facility] CO2 [Moles/Vol] 28 mmol/L Normal 22-30 [facility] Comment on above: Order Comment: Speci men Type: BLOOD SPECIMENOrdering Facility: [facility] Address: [address] [place] [address] Performed By: #### 1 9123-9, PROCAL, 7-1, 26149-2 ####[facility] LABORATORYCLIA [id number] [address] [facility] Creatinine [Mass/Vol] 0.86 mg/dL Normal 0.73-1.22 [facility] Comment on above: Order Comment: Speci men Type: BLOOD SPECIMENOrdering Facility: [facility] Address: [address] [place] [address] Performed By: #### 1 9123-9, PROCAL, 2777-1, 26569-6 ####[facility] LABORATORYCLIA [id number] [address] ESTIMATED GLOMERULAR FILTRATION RATE 94 mL/min/1.73m??? Normal >=60 [facility] Comment on above: Order Comment: Speci men Type: BLOOD SPECIMENOrdering Facility: [facility] Address: [address] [place] [address] Result Comment: Luzmaria mated Glomerular Filtration Rate [...] Performed By: #### 1 9123-9, PROCAL, 2777-1, 04361-0 ####[facility] LABORATORYCLIA [id number] [place] [address] [place] Glucose [Mass/Vol] 148 mg/dL High 74-99 [facility] Comment on above: Order Comment: Speccara feldman Type: BLOOD SPECIMENOrdering Facility: [facility] Address: [address] [address] Result Comment: The [place] Diabetes Association (ADA) provides guidance for cutoff [...] Standards of Medical Care in Diabetes 2016, [place] Diabetes Association. Diabetes Care. 2016.39(Suppl 1). Performed By: #### 1 9123-9, PROCCARLITOS, 277-, 48901-4 ####[facility] LABORATORYCLIA [id number] [place] [address] [place] Potassium [Moles/Vol] 4.0 mmol/L Normal 3.7-5.1 [facility] Comment on above: Order Comment: Shira feldman Type: BLOOD SPECIMENOrdering Facility: [facility] Address: [address] [phone] Performed By: #### 1 9123-9, PROCAL, 2777-, 75467-8 ####[facility] LABORATORYCLIA [id number] [address] Sodium [Moles/Vol] 143 mmol/L Normal 136-144 [facility] Comment on above: Order Comment: Speci men Type: BLOOD SPECIMENOrdering Facility: [facility] Address: [address] [place] [address] Performed By: #### 1 9123-9, PROCAL, 2777-1, 60259-7 ####[facility] LABORATORYCLIA [id number] [address] STATES [facility] Urea nitrogen [Mass/Vol] 38 mg/dL High 9-24 [facility] Comment on above: Order Comment: Speci men Type: BLOOD SPECIMENOrdering Facility: [facility] Address: [address] [place] [address] Performed By: #### 1 9123-9, KATIE, 2777-1, 19229-6 ####[facility] LABORATORYCLIA [id number] [address] CBC W Auto Differential pane l (Bld)on 07-24-2021 Basophils (Bld) [#/Vol] 0.06 10*3/uL Normal <0.11 [facility] Comment on above: Order Comment: Speci men Type: BLOOD SPECIMENOrdering Facility: [facility] Address: [address] [place] [address] Performed By: #### 5 7021-8 ####[facility] LABORATORYCLIA [id number] [address] STATES [facility] Basophils/100 WBC (Bld) 0.6 % Normal [facility] Comment on above: Order Comment: Speci men Type: BLOOD SPECIMENOrdering Facility: [facility] Address: [address] [place] [address] Performed By: #### 5 7021-8 ####[facility] LABORATORYCLIA [id number] [address] Differential cell count method Nom (Bld) Auto Normal [facility] Comment on above: Order Comment: Speci men Type: BLOOD SPECIMENOrdering Facility: [facility] Address: [facility] [address] Performed By: #### 5 7021-8 ####[facility] LABORATORYCLIA [id number] [address] Eosinophils (Bld) [#/Vol] 0.03 10*3/uL Normal <0.46 [facility] Comment on above: Order Comment: Speci men Type: BLOOD SPECIMENOrdering Facility: [facility] Address: [address] [place] [address] Performed By: #### 5 7021-8 ####[facility] LABORATORYCLIA [id number] [address] Eosinophils/100 WBC (Bld) 0.3 % Normal [facility] Comment on above: Order Comment: Speci men Type: BLOOD SPECIMENOrdering Facility: [facility] Address: [address] [place] [address] Performed By: #### 5 7021-8 ####[facility] LABORATORYCLIA [id number] [address] Erythrocyte distribution width (RBC) [Ratio] 17.0 % High 11.5-15.0 [facility] Comment on above: Order Comment: Speci men Type: BLOOD SPECIMENOrdering Facility: [facility] Address: [address] [place] [address] Performed By: #### 5 7021-8 ####[facility] LABORATORYCLIA [id number] [address] Hematocrit (Bld) [Volume fraction] 30.5 % Low 39.0-51.0 [facility] Comment on above: Order Comment: Speci men Type: BLOOD SPECIMENOrdering Facility: [facility] Address: [address] [place] [address] Performed By: #### 5 7021-8 ####[facility] LABORATORYCLIA [id number] [place] [address] [place] Hemoglobin (Bld) [Mass/Vol] 9.0 g/dL Low 13.0-17.0 [facility] Comment on above: Order Comment: Speci men Type: BLOOD SPECIMENOrdering Facility: [facility] Address: [address] [place] [address] Performed By: #### 5 7021-8 ####[facility]ORATORYCLIA [id number] [address] [place] IMMATURE GRAN % 0.5 % Normal [facility] Comment on above: Order Comment: Speci men Type: BLOOD SPECIMENOrdering Facility: [facility] Address: [address] [place] [address] Performed By: #### 5 7021-8 ####[facility] LABORATORYCLIA [id number] [address] IMMATURE GRAN ABS 0.05 k/uL Normal <0.10 [facility] Comment on above: Order Comment: Speci men Type: BLOOD SPECIMENOrdering Facility: [facility] Address: [address] [place] [address] Performed By: #### 5 7021-8 ####[facility] LABORATORYCLIA [id number] [address] [place] Lymphocytes (Bld) [#/Vol] 1.68 10*3/uL Normal 1.00-4.00 [facility] Comment on above: Order Comment: Speci men Type: BLOOD SPECIMENOrdering Facility: [facility] Address: [address] [place] [address] Performed By: #### 5 7021-8 ####[facility] LABORATORYCLIA [id number] [address] [place] Lymphocytes/100 WBC (Bld) 16.2 % Normal [facility] Comment on above: Order Comment: Speci men Type: BLOOD SPECIMENOrdering Facility: [facility] Address: [address] [place] [address] Performed By: #### 5 7021-8 ####[facility]ORATORYCLIA [id number] [address] MCH (RBC) [Entitic mass] 27.4 pg Normal 26.0-34.0 [facility] Comment on above: Order Comment: Speci men Type: BLOOD SPECIMENOrdering Facility: [facility] Address: [address] [place] [address] Performed By: #### 5 7021-8 ####[facility] LABORATORYCLIA [id number] [address] [place] OF [facility] MCHC (RBC) [Mass/Vol] 29.5 g/dL Low 30.5-36.0 [facility] Comment on above: Order Comment: Speci men Type: BLOOD SPECIMENOrdering Facility: [facility] Address: [address] [place] [address] Performed By: #### 5 7021-8 ####[facility] LABORATORYCLIA [id number] [address] [facility] MCV (RBC) [Entitic vol] 93.0 fL Normal 80.0-100.0 [facility] Comment on above: Order Comment: Speci men Type: BLOOD SPECIMENOrdering Facility: [facility] Address: [address] [place] [address] Performed By: #### 5 7021-8 ####[facility] LABORATORYCLIA [id number] [address] [place] OF [facility] Monocytes (Bld) [#/Vol] 0.63 10*3/uL Normal <0.87 [facility] Comment on above: Order Comment: Speci men Type: BLOOD SPECIMENOrdering Facility: [facility] Address: [address] [place] [address] Performed By: #### 5 7021-8 ####[facility] LABORATORYCLIA [id number] [address] Monocytes/100 WBC (Bld) 6.1 % Normal [facility] Comment on above: Order Comment: Speci men Type: BLOOD SPECIMENOrdering Facility: [facility] Address: [address] [address] Performed By: #### 5 7021-8 ####[facility]ORATORYCLIA [id number] [address] [place] Neutrophils (Bld) [#/Vol] 7.91 10*3/uL High 1.45-7.50 [facility] Comment on above: Order Comment: Speci men Type: BLOOD SPECIMENOrdering Facility: [facility] Address: [address] [place] [address] Performed By: #### 5 7021-8 ####[facility] LABORATORYCLIA [id number] [address] Neutrophils/100 WBC (Bld) 76.3 % Normal [facility] Comment on above: Order Comment: Speci men Type: BLOOD SPECIMENOrdering Facility: [facility] Address: [address] [place] [address] Performed By: #### 5 7021-8 ####[facility] LABORATORYCLIA [id number] [address] [place] Nucleated RBC (Bld) [#/Vol] 10*3/uL Normal <0.01 [facility] Comment on above: Order Comment: Speci men Type: BLOOD SPECIMENOrdering Facility: [facility] Address: [address] [place] [address] Performed By: #### 5 7021-8 ####[facility] LABORATORYCLIA [id number] [address] [place] Nucleated RBC/100 WBC (Bld) [Ratio] 0.0 /100 WBC Normal [facility] Comment on above: Order Comment: Speci men Type: BLOOD SPECIMENOrdering Facility: [facility] Address: [address] [place] [address] Performed By: #### 5 7021-8 ####[facility] LABORATORYCLIA [id number] [address] [place] Platelet mean volume (Bld) [Entitic vol] 11.1 fL Normal 9.0-12.7 [facility] Comment on above: Order Comment: Speci men Type: BLOOD SPECIMENOrdering Facility: [facility] Address: [address] [place] [address] Performed By: #### 5 7021-8 ####[facility] LABORATORYCLIA [id number] [address] [place] Platelets (Bld) [#/Vol] 285 10*3/uL Normal 150-400 [facility] Comment on above: Order Comment: Speci men Type: BLOOD SPECIMENOrdering Facility: [facility] Address: [address] [place] [address] Performed By: #### 5 7021-8 ####[facility] LABORATORYCLIA [id number] [place] [address] [place] [address] [facility] RBC (Bld) [#/Vol] 3.28 10*6/uL Low 4.20-6.00 [facility] Comment on above: Order Comment: Speci men Type: BLOOD SPECIMENOrdering Facility: [facility] Address: [address] [place] [address] Performed By: #### 5 7021-8 ####[facility] LABORATORYCLIA [id number] [address] [facility] WBC (Bld) [#/Vol] 10.36 10*3/uL Normal 3.70-11.00 [facility] Comment on above: Order Comment: Speci men Type: BLOOD SPECIMENOrdering Facility: [facility] Address: [address] [place] [address] Performed By: #### 5 7021-8 ####[facility] LABORATORYCLIA [id number] [address] [place] Legionella Ag Ur Qlon 2021 Legionella sp Ag Ql (U) Negative Normal Negative [facility] Comment on above: Order Comment: Speci men Type: URINE SPECIMENOrdering Facility: [facility] Address: [address] [place] [address] Performed By: #### 3 2781-7 ####[facility] LABORATORYCLIA [id number] [address] Magnesium SerPl-mCncon 07-24 Magnesium [Mass/Vol] 2.3 mg/dL Normal 1.7-2.3 [facility] Comment on above: Order Comment: Speci men Type: BLOOD SPECIMENOrdering Facility: [facility] Address: [address] [place] [address] Performed By: #### 1 9123-9, [facility], 2776-05, 72427-7 ####[facility] LABORATORYCLIA [id number] [address] NURSING PROGon 07-24-2021 NURSING PROG Normal [facility] PROCALCITONIN (LAB)on 2021 Procalcitonin [Mass/Vol] 0.15 ng/mL High <0.09 [facility] Comment on above: Order Comment: Speci men Type: BLOOD SPECIMENOrdering Facility: [facility] Address: [address] [place] [address] Result Comment: For a guided interpretation of test results, please visit the Change in Procalcitonin Calculator, [email or web address]. Performed By: #### 1 9123-9, KATIE, 2776-05, 89788-6 ####[facility] LABORATORYCLIA [id number] [address] [place] Phosphate SerPl-mCncon 07-24 Phosphate [Mass/Vol] 3.9 mg/dL Normal 2.7-4.8 [facility] Comment on above: Order Comment: Speci men Type: BLOOD SPECIMENOrdering Facility: [facility] Address: [address] [place] [address] Performed By: #### 1 9123-9, PROCCO, 2776-1, 39031-9 ####[facility] LABORATORYCLIA [id number] [address] STREPTOCOCCUS PNEUMONIAE AGo n 07-24-2021 STREPTOCOCCUS PNEUMONIAE AG Normal [facility] Comment on above: Performed By: #### S PNAG ####[facility] LABORATORYCLIA [id number] [address] [place] [facility] aPTT PPPon 07-24-2021 aPTT Coag (PPP) [Time] 60.8 s High 23.0-32.4 [facility] Comment on above: Order Comment: Speci men Type: BLOOD SPECIMENOrdering Facility: [facility] Address: [address] [place] [address] Performed By: #### 1 4979-9 ####[facility] LABORATORYCLIA [id number] [address] aPTT Coag (PPP) [Time] 38.2 s High 23.0-32.4 [facility] Comment on above: Order Comment: Speci men Type: BLOOD SPECIMENOrdering Facility: [facility] Address: [address] [place] [address] Performed By: #### 1 4979-9 ####[facility] LABORATORYCLIA [id number] [address] aPTT Coag (PPP) [Time] 35.9 s High 23.0-32.4 [facility] Comment on above: Order Comment: Speci men Type: BLOOD SPECIMENOrdering Facility: [facility] Address: [address] [place] [address] Performed By: #### 1 4979-9 ####[facility] LABORATORYCLIA [id number] [address] [place] [facility] aPTT Coag (PPP) [Time] 28.8 s Normal 23.0-32.4 [facility] Comment on above: Order Comment: Speci men Type: BLOOD SPECIMENOrdering Facility: [facility] Address: [address] [place] [address] Performed By: #### 1 4979-9 ####[facility] LABORATORYCLIA [id number] [address] ALLIED HEALTHon 07-23-2021 ALLIED HEALTH Normal [facility] ALLIED HEALTH Normal [facility] ALLIED HEALTH Normal [facility] ARTERIAL BLOOD GASESon 07-23 Base excess Calc (Bld) [Moles/Vol] 4 mmol/L High 0-2 [facility] Comment on above: Order Comment: Speci men Type: ARTERIAL BLOOD SPECIMENOrdering Facility: [facility] Address: [address] [place] [address] Performed By: #### A LLBG ####[facility] LABORATORYCLIA [id number] [address] STATES [facility] Body temperature 100.58 [degF] Normal [facility] Comment on above: Order Comment: Speci men Type: ARTERIAL BLOOD SPECIMENOrdering Facility: [facility] Address: [address] [place] [address] Performed By: #### A LLBG ####[facility] LABORATORYCLIA [id number] [address] [place] CALCIUM IONIZED, PH CORRECTED 1.26 mmol/L Normal 1.08-1.30 [facility] Comment on above: Order Comment: Speci men Type: ARTERIAL BLOOD SPECIMENOrdering Facility: [facility] Address: [address] [place] [address] Performed By: #### A LLBG ####[facility] LABORATORYCLIA [id number] [address] [place] Calcium.ionized (BldV) [Mass/Vol] 1.25 mmol/L Normal 1.08-1.30 [facility] Comment on above: Order Comment: Speci men Type: ARTERIAL BLOOD SPECIMENOrdering Facility: [facility] Address: [address] [place] [address] Performed By: #### A LLBG ####[facility] LABORATORYCLIA [id number] [address] [place] Carboxyhemoglobin (BldA) [Mass fraction] 1.2 % Normal 0.0-2.0 [facility] Comment on above: Order Comment: Speci men Type: ARTERIAL BLOOD SPECIMENOrdering Facility: [facility] Address: [address] [address] Result Comment: Carb oxyhemoglobin Reference Range for Smokers: 2.0-8.0% Performed By: #### A LLBG ####[facility]ORATORYCLIA [id number] [address] [place] CO2 (Bld) [Partial pressure] 46 mm Hg Normal 36-46 [facility] Comment on above: Order Comment: Speci men Type: ARTERIAL BLOOD SPECIMENOrdering Facility: [facility] Address: [address] [place] [address] Performed By: #### A LLBG ####[facility]ORATORYCLIA [id number] [address] [place] CO2 [Moles/Vol] 27 mmol/L Normal 22-28 [facility] Comment on above: Order Comment: Speci men Type: ARTERIAL BLOOD SPECIMENOrdering Facility: [facility] Address: [address] [place] [address] Performed By: #### A LLBG ####[facility] LABORATORYCLIA [id number] [address] [place] CO2 adjusted to patient's actual temperature (Bld) [Partial pressure] 48 mmHg High 36-46 [facility] Comment on above: Order Comment: Speci men Type: ARTERIAL BLOOD SPECIMENOrdering Facility: [facility] Address: [address] [place] [address] Performed By: #### A LLBG ####[facility]ORATORYCLIA [id number] [address] [place] Glucose [Mass/Vol] 134 mg/dL High 60-105 [facility] Comment on above: Order Comment: Speci men Type: ARTERIAL BLOOD SPECIMENOrdering Facility: [facility] Address: [address] [place] [address] Performed By: #### A LLBG ####[facility]ORATORYCLIA [id number] [address] HCO3 (Bld) [Moles/Vol] 29 mmol/L High 22-26 [facility] Comment on above: Order Comment: Speci men Type: ARTERIAL BLOOD SPECIMENOrdering Facility: [facility] Address: [address] [place] [address] Performed By: #### A LLBG ####[facility] LABORATORYCLIA [id number] [address] [place] Hematocrit (Bld) [Volume fraction] 31.4 % Low 39.0-51.0 [facility] Comment on above: Order Comment: Speci men Type: ARTERIAL BLOOD SPECIMENOrdering Facility: [facility] Address: [address] [place] [address] Performed By: #### A LLBG ####[facility] LABORATORYCLIA [id number] [address] [facility] Hemoglobin (Bld) [Mass/Vol] 10.2 g/dL Low 13.0-17.0 [facility] Comment on above: Order Comment: Speci men Type: ARTERIAL BLOOD SPECIMENOrdering Facility: [facility] Address: [address] [place] [address] Performed By: #### A LLBG ####[facility] LABORATORYCLIA [id number] [address] Methemoglobin (Bld) [Mass fraction] % Normal 0.0-1.5 [facility] Comment on above: Order Comment: Speci men Type: ARTERIAL BLOOD SPECIMENOrdering Facility: [facility] Address: [address] [place] [address] Performed By: #### A LLBG ####[facility] LABORATORYCLIA [id number] [address] O2 THERAPY Ventilator Normal [facility] Comment on above: Order Comment: Speci men Type: ARTERIAL BLOOD SPECIMENOrdering Facility: [facility] Address: [address] [place] [address] Performed By: #### A LLBG ####[facility] LABORATORYCLIA [id number] [address] [place] Oxygen (Bld) [Partial pressure] 113 mm Hg High 85-95 [facility] Comment on above: Order Comment: Speci men Type: ARTERIAL BLOOD SPECIMENOrdering Facility: [facility] Address: [address] [place] [address] Performed By: #### A LLBG ####[facility] LABORATORYCLIA [id number] [address] [place] Oxygen adjusted to patient's actual temperature (Bld) [Partial pressure] 119 mmHg High 85-95 [facility] Comment on above: Order Comment: Speci men Type: ARTERIAL BLOOD SPECIMENOrdering Facility: [facility] Address: [address] [place] [address] Performed By: #### A LLBG ####[facility] LABORATORYCLIA [id number] [address] [place] OXYGEN SATURATION, ARTERIAL 98 % Normal 95-98 [facility] Comment on above: Order Comment: Speci men Type: ARTERIAL BLOOD SPECIMENOrdering Facility: [facility] Address: [address] [place] [address] Performed By: #### A LLBG ####[facility] LABORATORYCLIA [id number] [address] Oxyhemoglobin (BldA) [Mass fraction] 96 % Normal 95-98 [facility] Comment on above: Order Comment: Speci men Type: ARTERIAL BLOOD SPECIMENOrdering Facility: [facility] Address: [address] [place] [address] Performed By: #### A LLBG ####[facility] LABORATORYCLIA [id number] [address] [place] pH (Bld) 7.41 [pH] Normal 7.35-7.45 [facility] Comment on above: Order Comment: Speci men Type: ARTERIAL BLOOD SPECIMENOrdering Facility: [facility] Address: [address] [place] [address] Performed By: #### A LLBG ####[facility] LABORATORYCLIA [id number] [address] STATES [facility] pH adjusted to patient's actual temperature (Bld) 7.40 Normal 7.35-7.45 [facility] Comment on above: Order Comment: Speci men Type: ARTERIAL BLOOD SPECIMENOrdering Facility: [facility] Address: [address] [place] [address] Performed By: #### A LLBG ####[facility] LABORATORYCLIA [id number] [address] Potassium [Moles/Vol] 4.3 mmol/L Normal 3.5-5.0 [facility] Comment on above: Order Comment: Speci men Type: ARTERIAL BLOOD SPECIMENOrdering Facility: [facility] Address: [address] [place] [address] Performed By: #### A LLBG ####[facility] LABORATORYCLIA [id number] [address] Sodium [Moles/Vol] 144 mmol/L Normal 136-144 [facility] Comment on above: Order Comment: Speci men Type: ARTERIAL BLOOD SPECIMENOrdering Facility: [facility] Address: [address] [place] [address] Performed By: #### A LLBG ####[facility] LABORATORYCLIA [id number] [address] [place] Bacteria CSF Culton 07-24-19 22 Bacteria identified Cx Nom (CSF) Abnormal [facility] Comment on above: Performed By: #### 6 06-4 ####[facility] LABORATORYCLIA [id number] [address] [place] Basic metabolic 2000 panelon 07-23-2021 Anion gap [Moles/Vol] 12 mmol/L Normal 9-18 [facility] Comment on above: Order Comment: Speci men Type: BLOOD SPECIMENOrdering Facility: [facility] Address: [address] [place] [address] Performed By: #### 2 4321-2 ####[facility] LABORATORYCLIA [id number] [address] [place] Calcium [Mass/Vol] 9.7 mg/dL Normal 8.5-10.2 [facility] Comment on above: Order Comment: Speci men Type: BLOOD SPECIMENOrdering Facility: [facility] Address: [address] [place] [address] Performed By: #### 2 4321-2 ####[facility] LABORATORYCLIA [id number] [place] [address] [place] Chloride [Moles/Vol] 105 mmol/L Normal 97-105 [facility] Comment on above: Order Comment: Speci men Type: BLOOD SPECIMENOrdering Facility: [facility] Address: [address] [place] [address] Performed By: #### 2 4321-2 ####[facility] LABORATORYCLIA [id number] [address] [place] CO2 [Moles/Vol] 28 mmol/L Normal 22-30 [facility] Comment on above: Order Comment: Speci men Type: BLOOD SPECIMENOrdering Facility: [facility] Address: [address] [place] [address] Performed By: #### 2 4321-2 ####[facility] LABORATORYCLIA [id number] [address] [place] Creatinine [Mass/Vol] 0.78 mg/dL Normal 0.73-1.22 [facility] Comment on above: Order Comment: Speci men Type: BLOOD SPECIMENOrdering Facility: [facility] Address: [address] [place] [address] Performed By: #### 2 4321-2 ####[facility] LABORATORYCLIA [id number] [address] [place] ESTIMATED GLOMERULAR FILTRATION RATE 97 mL/min/1.73m??? Normal >=60 [facility] Comment on above: Order Comment: Speci men Type: BLOOD SPECIMENOrdering Facility: [facility] Address: [address] [place] [address] Result Comment: Luzmaria mated Glomerular Filtration Rate [...] actual GFR. Performed By: #### 2 4321-2 ####[facility] LABORATORYCLIA [id number] [place] [address] [place] Glucose [Mass/Vol] 127 mg/dL High 74-99 [facility] Comment on above: Order Comment: Shira feldman Type: BLOOD SPECIMENOrdering Facility: [facility] Address: [address] [place], [place] [address] Result Comment: The [place] Diabetes Association (ADA) provides guidance for cutoff [...] Standards of Medical Care in Diabetes 2016, [place] Diabetes Association. Diabetes Care. 2016.39(Suppl 1). Performed By: #### 2 4321-2 ####[facility] LABORATORYCLIA [id number] [place] [address] [place] Potassium [Moles/Vol] 4.3 mmol/L Normal 3.7-5.1 [facility] Comment on above: Order Comment: Shira feldman Type: BLOOD SPECIMENOrdering Facility: [facility] Address: [address] [place] [address] Performed By: #### 2 4321-2 ####[facility] LABORATORYCLIA [id number] [place] [address] [place] Sodium [Moles/Vol] 145 mmol/L High 136-144 [facility] Comment on above: Order Comment: Speci men Type: BLOOD SPECIMENOrdering Facility: [facility] Address: [address] [place] [address] Performed By: #### 2 4321-2 ####[facility] LABORATORYCLIA [id number] [place] [address] [place] Urea nitrogen [Mass/Vol] 37 mg/dL High 9-24 [facility] Comment on above: Order Comment: Speci men Type: BLOOD SPECIMENOrdering Facility: [facility] Address: [address] [place] [address] Performed By: #### 2 4321-2 ####[facility] LABORATORYCLIA [id number] [address] [place] C diff Tox gens Stl Ql MEGAN+p robeon 07-23-2021 C. difficile toxin genes MEGAN+probe Ql (Stl) Negative Normal Negative for C. difficile toxin by PCR [facility] Comment on above: Order Comment: Speci men Type: STOOL SPECIMENOrdering Facility: [facility] Address: [address] [place] [address] Performed By: #### 5 4067-4 ####[facility] LABORATORYCLIA [id number] [place] [address] [place] CBC W Auto Differential pane l (Bld)on 07-23-2021 Basophils (Bld) [#/Vol] 0.07 10*3/uL Normal <0.11 [facility] Comment on above: Order Comment: Speci men Type: BLOOD SPECIMENOrdering Facility: [facility] Address: [address] [place] [address] Performed By: #### 5 7021-8 ####[facility] LABORATORYCLIA [id number] [address] [place] Basophils/100 WBC (Bld) 0.5 % Normal [facility] Comment on above: Order Comment: Speci men Type: BLOOD SPECIMENOrdering Facility: [facility] Address: [address] [place] [address] Performed By: #### 5 7021-8 ####[facility] LABORATORYCLIA [id number] [address] Differential cell count method Nom (Bld) Auto Normal [facility] Comment on above: Order Comment: Speci men Type: BLOOD SPECIMENOrdering Facility: [facility] Address: [address] [place] [address] Performed By: #### 5 7021-8 ####[facility] LABORATORYCLIA [id number] [address] [place] Eosinophils (Bld) [#/Vol] 10*3/uL Normal <0.46 [facility] Comment on above: Order Comment: Speci men Type: BLOOD SPECIMENOrdering Facility: [facility] Address: [address] [place] [address] Performed By: #### 5 7021-8 ####[facility] LABORATORYCLIA [id number] [address] Eosinophils/100 WBC (Bld) 0.2 % Normal [facility] Comment on above: Order Comment: Speci men Type: BLOOD SPECIMENOrdering Facility: [facility] Address: [address] [place] [address] Performed By: #### 5 7021-8 ####[facility] LABORATORYCLIA [id number] [address] Erythrocyte distribution width (RBC) [Ratio] 16.7 % High 11.5-15.0 [facility] Comment on above: Order Comment: Speci men Type: BLOOD SPECIMENOrdering Facility: [facility] Address: [address] [place] [address] Performed By: #### 5 7021-8 ####[facility] LABORATORYCLIA [id number] [address] Hematocrit (Bld) [Volume fraction] 32.8 % Low 39.0-51.0 [facility] Comment on above: Order Comment: Speci men Type: BLOOD SPECIMENOrdering Facility: [facility] Address: [address] [place] [place] [address] Performed By: #### 5 7021-8 ####[facility] LABORATORYCLIA [id number] [address] [place] OF [facility] Hemoglobin (Bld) [Mass/Vol] 9.7 g/dL Low 13.0-17.0 [facility] Comment on above: Order Comment: Speci men Type: BLOOD SPECIMENOrdering Facility: [facility] Address: [address] [place] [address] Performed By: #### 5 7021-8 ####[facility] LABORATORYCLIA [id number] [address] [facility] IMMATURE GRAN % 0.7 % Normal [facility] Comment on above: Order Comment: Speci men Type: BLOOD SPECIMENOrdering Facility: [facility] Address: [address] [place] [address] Performed By: #### 5 7021-8 ####[facility] LABORATORYCLIA [id number] [address] IMMATURE GRAN ABS 0.09 k/uL Normal <0.10 [facility] Comment on above: Order Comment: Speci men Type: BLOOD SPECIMENOrdering Facility: [facility] Address: [address] [place] [address] Performed By: #### 5 7021-8 ####[facility] LABORATORYCLIA [id number] [address] [place] Lymphocytes (Bld) [#/Vol] 1.94 10*3/uL Normal 1.00-4.00 [facility] Comment on above: Order Comment: Speci men Type: BLOOD SPECIMENOrdering Facility: [facility] Address: [address] [place] [address] Performed By: #### 5 7021-8 ####[facility] LABORATORYCLIA [id number] [address] Lymphocytes/100 WBC (Bld) 14.6 % Normal [facility] Comment on above: Order Comment: Speci men Type: BLOOD SPECIMENOrdering Facility: [facility] Address: [address] [place] [address] Performed By: #### 5 7021-8 ####[facility] LABORATORYCLIA [id number] [address] MCH (RBC) [Entitic mass] 27.2 pg Normal 26.0-34.0 [facility] Comment on above: Order Comment: Speci men Type: BLOOD SPECIMENOrdering Facility: [facility] Address: [address] [place] [address] Performed By: #### 5 7021-8 ####[facility] LABORATORYCLIA [id number] [address] MCHC (RBC) [Mass/Vol] 29.6 g/dL Low 30.5-36.0 [facility] Comment on above: Order Comment: Speci men Type: BLOOD SPECIMENOrdering Facility: [facility] Address: [address] [place] [address] Performed By: #### 5 7021-8 ####[facility] LABORATORYCLIA [id number] [address] MCV (RBC) [Entitic vol] 92.1 fL Normal 80.0-100.0 [facility] Comment on above: Order Comment: Speci men Type: BLOOD SPECIMENOrdering Facility: [facility] Address: [address] [place] [address] Performed By: #### 5 7021-8 ####[facility] LABORATORYCLIA [id number] [address] Monocytes (Bld) [#/Vol] 0.74 10*3/uL Normal <0.87 [facility] Comment on above: Order Comment: Speci men Type: BLOOD SPECIMENOrdering Facility: [facility] Address: [address] [address] Performed By: #### 5 7021-8 ####[facility]ORATORYCLIA [id number] [address] [place] Monocytes/100 WBC (Bld) 5.6 % Normal [facility] Comment on above: Order Comment: Speci men Type: BLOOD SPECIMENOrdering Facility: [facility] Address: [address] [place] [address] Performed By: #### 5 7021-8 ####[facility]ORATORYCLIA [id number] [place] [address] [place] Neutrophils (Bld) [#/Vol] 10.43 10*3/uL High 1.45-7.50 [facility] Comment on above: Order Comment: Speci men Type: BLOOD SPECIMENOrdering Facility: [facility] Address: [address] [place] [address] Performed By: #### 5 7021-8 ####[facility] LABORATORYCLIA [id number] [address] [place] Neutrophils/100 WBC (Bld) 78.4 % Normal [facility] Comment on above: Order Comment: Speci men Type: BLOOD SPECIMENOrdering Facility: [facility] Address: [address] [place] [address] Performed By: #### 5 7021-8 ####[facility]ORATORYCLIA [id number] [place] [address] [place] Nucleated RBC (Bld) [#/Vol] 10*3/uL Normal <0.01 [facility] Comment on above: Order Comment: Speci men Type: BLOOD SPECIMENOrdering Facility: [facility] Address: [address] [place] [address] Performed By: #### 5 7021-8 ####[facility]ORATORYCLIA [id number] [place] [address] [place] Nucleated RBC/100 WBC (Bld) [Ratio] 0.0 /100 WBC Normal [facility] Comment on above: Order Comment: Speci men Type: BLOOD SPECIMENOrdering Facility: [facility] Address: [address] [place], [place] [address] Performed By: #### 5 7021-8 ####[facility] LABORATORYCLIA [id number] [address] [place] Platelet mean volume (Bld) [Entitic vol] 11.0 fL Normal 9.0-12.7 [facility] Comment on above: Order Comment: Speci men Type: BLOOD SPECIMENOrdering Facility: [facility] Address: [address] [place], [place] [address] Performed By: #### 5 7021-8 ####[facility] LABORATORYCLIA [id number] [address] [place] Platelets (Bld) [#/Vol] 381 10*3/uL Normal 150-400 [facility] Comment on above: Order Comment: Speci men Type: BLOOD SPECIMENOrdering Facility: [facility] Address: [address] [place], [place] [address] Performed By: #### 5 7021-8 ####[facility] LABORATORYCLIA [id number] [address] [place] RBC (Bld) [#/Vol] 3.56 10*6/uL Low 4.20-6.00 [facility] Comment on above: Order Comment: Speci men Type: BLOOD SPECIMENOrdering Facility: [facility] Address: [address] [place], [place] [address] Performed By: #### 5 7021-8 ####[facility] LABORATORYCLIA [id number] [address] [place] WBC (Bld) [#/Vol] 13.29 10*3/uL High 3.70-11.00 [facility] Comment on above: Order Comment: Speci men Type: BLOOD SPECIMENOrdering Facility: [facility] Address: [address] [place], [place] [address] Performed By: #### 5 7021-8 ####[facility] LABORATORYCLIA [id number] [place] [address] [place] CONSULT PROGon 07-23-2021 CONSULT PROG Normal [facility] CONSULT PROG Normal [facility] CSF MANUAL DIFFon 07-23-2021 DIF TTL, CSF 100 cells counted Normal [facility] Comment on above: Order Comment: Speci men Type: CEREBROSPINAL FLUIDOrdering Facility: [facility] Address: [address] [place] [address] Performed By: #### L [id number], [id number], 01830-8 ####[facility] LABORATORYCLIA [id number] [place] [address] [place] LYMPH%, CSF 2 % Low 50-90 [facility] Comment on above: Order Comment: Speci men Type: CEREBROSPINAL FLUIDOrdering Facility: [facility] Address: [address] [place] [address] Performed By: #### L [id number], BJR3718, 15020-2 ####[facility] LABORATORYCLIA [id number] [place] [address] [place] MONO%, CSF 9 % Low 10-50 [facility] Comment on above: Order Comment: Speci men Type: CEREBROSPINAL FLUIDOrdering Facility: [facility] Address: [address] [place] [address] Performed By: #### L [id number], TSM7421, 24430-8 ####[facility] LABORATORYCLIA [id number] [place] [address] [place] NEUT%, CSF 89 % High 0-3 [facility] Comment on above: Order Comment: Speci men Type: CEREBROSPINAL FLUIDOrdering Facility: [facility] Address: [address] [place] [address] Performed By: #### L [id number], MTS6219, 00780-3 ####[facility] LABORATORYCLIA [id number] [place] [address] [place] CSF PATHOLOGIST INTERP (LAB REFLEX ORDER-NO BILL)on 07-23-2021 CSF STAFF REVIEW Negative for maligna nt cells. Numerous bacterial organisms present, cocci in pairs and chains. Recommend correlation with CSF culture results. Normal [facility] Comment on above: Order Comment: Speci men Type: CEREBROSPINAL FLUIDOrdering Facility: [facility] Address: [address] [place] [address] Performed By: #### L OR6529, KYO1336, 04117-6 ####[facility] LABORATORYCLIA [id number] [address] Pathologist name Reviewed by Amador Stevens MD [facility] Comment on above: Order Comment: Speci men Type: CEREBROSPINAL FLUIDOrdering Facility: [facility] Address: [address] [place] [address] Performed By: #### L [id number], HPM2003, 49236-5 ####[facility] LABORATORYCLIA [id number] [address] BRAIN WO IVCONon 07-24-19 CT BRAIN WO IVCON Normal [facility] Cell count panel (CSF)on Clarity (CSF) Clear Normal Clear [facility] Comment on above: Order Comment: Speci men Type: CEREBROSPINAL FLUIDOrdering Facility: [facility] Address: [address] [place] [address] Performed By: #### L [id number], XRH7424, 15826-3 ####[facility] LABORATORYCLIA [id number] [address] Clarity (Unsp spec) Not Indicated Normal Clear [facility] Comment on above: Order Comment: Speci men Type: CEREBROSPINAL FLUIDOrdering Facility: [facility] Address: [address] [place] [address] Performed By: #### L [id number], SHK3302, 97757-5 ####[facility] LABORATORYCLIA [id number] [address] Color (CSF) Colorless Normal Colorless [facility] Comment on above: Order Comment: Speci men Type: CEREBROSPINAL FLUIDOrdering Facility: [facility] Address: [address] [place] [address] Performed By: #### L [id number], OWD2822, 68590-0 ####[facility] LABORATORYCLIA [id number] [address] Color (Spun CSF) Not Indicated Normal Colorless [facility] Comment on above: Order Comment: Speci men Type: CEREBROSPINAL FLUIDOrdering Facility: [facility] Address: [address] [place] [address] Performed By: #### L [id number], UIG2422, 14746-3 ####[facility] LABORATORYCLIA [id number] [address] CSF [employer] Normal [facility] Comment on above: Order Comment: Speci men Type: CEREBROSPINAL FLUIDOrdering Facility: [facility] Address: [address] [place] [address] Performed By: #### L ZK0803, GCH1649, 35432-5 ####[facility] LABORATORYCLIA [id number] [address] RBC Manual cnt (CSF) [#/Vol] 7 cells/uL High 0-5 [facility] Comment on above: Order Comment: Speci men Type: CEREBROSPINAL FLUIDOrdering Facility: [facility] Address: [address] [place] [address] Performed By: #### L OH6475, BAR8618, 52455-3 ####[facility] LABORATORYCLIA [id number] [address] WBC Manual cnt (CSF) [#/Vol] 193 cells/uL High 0-5 [facility] Comment on above: Order Comment: Speci men Type: CEREBROSPINAL FLUIDOrdering Facility: [facility] Address: [address] [place] [address] Performed By: #### L [id number], DCI6961, 79387-2 ####[facility]ATORYCLIA [id number] [address] [place] Glucose CSF-ncon Glucose (CSF) [Mass/Vol] 81 mg/dL High 40-70 [facility] Comment on above: Order Comment: Speci men Type: CEREBROSPINAL FLUIDOrdering Facility: [facility] Address: [address] [place] [address] Result Comment: Lumb ar CSF glucose values of healthy patients are approximately 60% of the plasma values and must always be compared with a concurrently measured plasma value for adequate clinical interpretation.References: 1. Glucose HK (GLUC3) [package insert V 12.0 American]. [employer], [place], [place]. September 2015. 2. Michelle Moore, Loki H. (2015). Chapter 7: Glucose and Lactate. Marianela Rothman.(eds.), Cerebrospinal Fluid in Clinical Neurology. [place]: [employer]. Performed By: #### 2 342-4, 2880-3 ####[facility] LABORATORYCLIA [id number] [address] [place] NURSING PROGon 07-23-2021 NURSING PROG Normal [facility] NURSING PROG Normal [facility] Prot [facility] Protein (CSF) [Mass/Vol] 68 mg/dL High 15-45 [facility] Comment on above: Order Comment: Speci men Type: CEREBROSPINAL FLUIDOrdering Facility: [facility] Address: [address] [place] [address] Performed By: #### 2 342-4, 2880-3 ####[facility] LABORATORYCLIA [id number] [address] Urinalysis complete panel (U )on 07-23-2021 Bilirubin Ql (U) Negative Normal Negative [facility] Comment on above: Order Comment: Speci men Type: URINE SPECIMENOrdering Facility: [facility] Address: [address] [place] [address] Performed By: #### 2 4356-8 ####[facility] LABORATORYCLIA [id number] [address] Clarity (Unsp spec) Clear Normal Clear [facility] Comment on above: Order Comment: Speci men Type: URINE SPECIMENOrdering Facility: [facility] Address: [address] [place] [address] Performed By: #### 2 4356-8 ####[facility] LABORATORYCLIA [id number] [address] [place] Color (U) Light Yellow Normal yellow [facility] Comment on above: Order Comment: Speci men Type: URINE SPECIMENOrdering Facility: [facility] Address: [address] [place] [address] Performed By: #### 2 4356-8 ####[facility] LABORATORYCLIA [id number] [address] Glucose Test strip (U) [Mass/Vol] Negative Normal Negative [facility] Comment on above: Order Comment: Speci men Type: URINE SPECIMENOrdering Facility: [facility] Address: [address] [place] [address] Performed By: #### 2 4356-8 ####[facility] LABORATORYCLIA [id number] [address] Hemoglobin Ql (U) Negative Normal Negative [facility] Comment on above: Order Comment: Speci men Type: URINE SPECIMENOrdering Facility: [facility] Address: [address] [place] [address] Performed By: #### 2 4356-8 ####[facility] LABORATORYCLIA [id number] [address] [place] Ketones Ql (U) Negative Normal Negative [facility] Comment on above: Order Comment: Speci men Type: URINE SPECIMENOrdering Facility: [facility] Address: [address] [place] [address] Performed By: #### 2 4356-8 ####[facility] LABORATORYCLIA [id number] [address] Leukocyte esterase Test strip Ql (U) Negative Normal Negative [facility] Comment on above: Order Comment: Speci men Type: URINE SPECIMENOrdering Facility: [facility] Address: [address] [place] [address] Performed By: #### 2 4356-8 ####[facility] LABORATORYCLIA [id number] [place] [address] [place] Nitrite Ql (U) Negative Normal Negative [facility] Comment on above: Order Comment: Speci men Type: URINE SPECIMENOrdering Facility: [facility] Address: [address] [place] [address] Performed By: #### 2 4356-8 ####[facility] LABORATORYCLIA [id number] [address] [place] pH (U) 6.0 [pH] Normal 5.0-8.0 [facility] Comment on above: Order Comment: Speci men Type: URINE SPECIMENOrdering Facility: [facility] Address: [address] [place] [address] Performed By: #### 2 4356-8 ####[facility] LABORATORYCLIA [id number] [place] [address] [place] Protein (U) [Mass/Vol] 1+ Abnormal Negative [facility] Comment on above: Order Comment: Speci men Type: URINE SPECIMENOrdering Facility: [facility] Address: [address] [place] [address] Performed By: #### 2 4356-8 ####[facility] LABORATORYCLIA [id number] [place] [address] [place] RBC LM.HPF (Urine sed) [#/Area] 0-3 /HPF Normal 0-3 /HPF [facility] Comment on above: Order Comment: Speci men Type: URINE SPECIMENOrdering Facility: [facility] Address: [address] [place] [address] Performed By: #### 2 4356-8 ####[facility] LABORATORYCLIA [id number] [address] [place] Specific gravity (U) [Rel density] 1.018 Normal 1.005-1.030 [facility] Comment on above: Order Comment: Speci men Type: URINE SPECIMENOrdering Facility: [facility] Address: [address] [place] [address] Performed By: #### 2 4356-8 ####[facility] LABORATORYCLIA [id number] [address] Urobilinogen Ql (U) Normal Normal Negative [facility] Comment on above: Order Comment: Speci men Type: URINE SPECIMENOrdering Facility: [facility] Address: [address] [place] [address] Performed By: #### 2 4356-8 ####[facility]MELCL[facility] [id number] [address] WBC LM.HPF (Urine sed) [#/Area] 0-5 /HPF Normal 0-5 /HPF [facility] Comment on above: Order Comment: Speci men Type: URINE SPECIMENOrdering Facility: [facility] Address: [address] [place] [address] Performed By: #### 2 4356-8 ####[facility] LABORATORYCLIA [id number] [address] Vancomycin random [Mass/Vol] on 07-23-2021 Vancomycin [Mass/Vol] 12.9 ug/mL Normal 10.0-20.0 [facility] Comment on above: Order Comment: Speci men Type: BLOOD SPECIMENOrdering Facility: [facility] Address: [address] [place] [address] Result Comment: Refe rence ranges and high/low indicator flags are provided as general guidelines only. The treating physician must determine appropriate target levels/dosing based on the specific clinical situation. Performed By: #### 4 091-5 ####[facility] LABORATORYCLIA [id number] [address] [place] XR CHEST 1V FRONTALon 2021 XR CHEST 1V FRONTAL Normal [facility] XR CHEST 1V FRONTAL Normal [facility] aPTT PPPon 07-23-2021 aPTT Coag (PPP) [Time] 32.3 s Normal 23.0-32.4 [facility] Comment on above: Order Comment: Speci men Type: BLOOD SPECIMENOrdering Facility: [facility] Address: [address] [place] [address] Performed By: #### 1 4979-9 ####[facility] LABORATORYCLIA [id number] [address] [facility] aPTT Coag (PPP) [Time] 57.9 s High 23.0-32.4 [facility] Comment on above: Order Comment: Speci men Type: BLOOD SPECIMENOrdering Facility: [facility] Address: [address] [place] [address] Performed By: #### 1 4979-9 ####[facility] LABORATORYCLIA [id number] [address] [facility] aPTT Coag (PPP) [Time] 46.3 s High 23.0-32.4 [facility] Comment on above: Order Comment: Speci men Type: BLOOD SPECIMENOrdering Facility: [facility] Address: [address] [place] [address] Performed By: #### 1 4979-9 ####[facility] LABORATORYCLIA [id number] [place] [address] [place] Basic metabolic 2000 panelon 07-22-2021 Anion gap [Moles/Vol] 8 mmol/L Low -18 [facility] Comment on above: Order Comment: Speci men Type: BLOOD SPECIMENOrdering Facility: [facility] Address: [address] [place] [address] Performed By: #### 2 4321-2 ####[facility] LABORATORYCLIA [id number] [address] OF [facility] Calcium [Mass/Vol] 9.5 mg/dL Normal 8.5-10.2 [facility] Comment on above: Order Comment: Speci men Type: BLOOD SPECIMENOrdering Facility: [facility] Address: [address] [place] [address] Performed By: #### 2 4321-2 ####[facility] LABORATORYCLIA [id number] [address] [place] Chloride [Moles/Vol] 105 mmol/L Normal 97-105 [facility] Comment on above: Order Comment: Speci men Type: BLOOD SPECIMENOrdering Facility: [facility] Address: [address] [place] [address] Performed By: #### 2 4321-2 ####[facility] LABORATORYCLIA [id number] [place] [address] [place] CO2 [Moles/Vol] 32 mmol/L High 22-30 [facility] Comment on above: Order Comment: Speci men Type: BLOOD SPECIMENOrdering Facility: [facility] Address: [address] [place] [address] Performed By: #### 2 4321-2 ####[facility] LABORATORYCLIA [id number] [address] [place] Creatinine [Mass/Vol] 0.75 mg/dL Normal 0.73-1.22 [facility] Comment on above: Order Comment: Speci men Type: BLOOD SPECIMENOrdering Facility: [facility] Address: [address] [place] [address] Performed By: #### 2 4321-2 ####[facility] LABORATORYCLIA [id number] [address] ESTIMATED GLOMERULAR FILTRATION RATE 98 mL/min/1.73m??? Normal >=60 [facility] Comment on above: Order Comment: Speci men Type: BLOOD SPECIMENOrdering Facility: [facility] Address: [address] [place] [address] Result Comment: Luzmaria mated Glomerular Filtration Rate [...] actual GFR. Performed By: #### 2 4321-2 ####[facility] LABORATORYCLIA [id number] [place] [address] [place] Glucose [Mass/Vol] 128 mg/dL High 74-99 [facility] Comment on above: Order Comment: Shira feldman Type: BLOOD SPECIMENOrdering Facility: [facility] Address: [address] [place] [address] Result Comment: The [place] Diabetes Association (ADA) provides guidance for cutoff [...] Standards of Medical Care in Diabetes 2016, [place] [place] [employer]. Diabetes Care. 2016.39(Suppl 1). Performed By: #### 2 4321-2 ####[facility] LABORATORYCLIA [id number] [place] [address] [place] Potassium [Moles/Vol] 3.7 mmol/L Normal 3.7-5.1 [facility] Comment on above: Order Comment: Shira feldman Type: BLOOD SPECIMENOrdering Facility: [facility] Address: [address] [address] Performed By: #### 2 4321-2 ####[facility] LABORATORYCLIA [id number] [place] [address] [place] Sodium [Moles/Vol] 145 mmol/L High 136-144 [facility] Comment on above: Order Comment: Shira feldman Type: BLOOD SPECIMENOrdering Facility: [facility] Address: [address] [address] Performed By: #### 2 4321-2 ####[facility] LABORATORYCLIA [id number] [address] STATES [facility] Urea nitrogen [Mass/Vol] 39 mg/dL High 9-24 [facility] Comment on above: Order Comment: Speci men Type: BLOOD SPECIMENOrdering Facility: [facility] Address: [address] [place] [address] Performed By: #### 2 4321-2 ####[facility] LABORATORYCLIA [id number] [address] [place] CASE MANAGEMon 07-22-2021 CASE MANAGEM Normal [facility] CBC W Auto Differential pane l (Bld)on 07-22-2021 Basophils (Bld) [#/Vol] 0.06 10*3/uL Normal <0.11 [facility] Comment on above: Order Comment: Speci men Type: BLOOD SPECIMENOrdering Facility: [facility] Address: [address] [place] [address] Performed By: #### 5 7021-8 ####[facility] LABORATORYCLIA [id number] [address] STATES [facility] Basophils/100 WBC (Bld) 0.5 % Normal [facility] Comment on above: Order Comment: Speci men Type: BLOOD SPECIMENOrdering Facility: [facility] Address: [address] [place] [address] Performed By: #### 5 7021-8 ####[facility] LABORATORYCLIA [id number] [address] STATES [facility] Differential cell count method Nom (Bld) Auto Normal [facility] Comment on above: Order Comment: Speci men Type: BLOOD SPECIMENOrdering Facility: [facility] Address: [address] [place] [address] Performed By: #### 5 7021-8 ####[facility] LABORATORYCLIA [id number] [address] [place] Eosinophils (Bld) [#/Vol] 0.44 10*3/uL Normal <0.46 [facility] Comment on above: Order Comment: Speci men Type: BLOOD SPECIMENOrdering Facility: [facility] Address: [address] [place] [address] Performed By: #### 5 7021-8 ####[facility] LABORATORYCLIA [id number] [address] Eosinophils/100 WBC (Bld) 3.9 % Normal [facility] Comment on above: Order Comment: Speci men Type: BLOOD SPECIMENOrdering Facility: [facility] Address: [address] [place] [address] Performed By: #### 5 7021-8 ####[facility] LABORATORYCLIA [id number] [address] [place] Erythrocyte distribution width (RBC) [Ratio] 17.0 % High 11.5-15.0 [facility] Comment on above: Order Comment: Speci men Type: BLOOD SPECIMENOrdering Facility: [facility] Address: [address] [place] [address] Performed By: #### 5 7021-8 ####[facility] LABORATORYCLIA [id number] [address] [place] Hematocrit (Bld) [Volume fraction] 32.0 % Low 39.0-51.0 [facility] Comment on above: Order Comment: Speci men Type: BLOOD SPECIMENOrdering Facility: [facility] Address: [address] [place] [address] Performed By: #### 5 7021-8 ####[facility] LABORATORYCLIA [id number] [address] [place] Hemoglobin (Bld) [Mass/Vol] 9.3 g/dL Low 13.0-17.0 [facility] Comment on above: Order Comment: Speci men Type: BLOOD SPECIMENOrdering Facility: [facility] Address: [address] [place] [address] Performed By: #### 5 7021-8 ####[facility]ORATORYCLIA [id number] [address] IMMATURE GRAN % 0.5 % Normal [facility] Comment on above: Order Comment: Speci men Type: BLOOD SPECIMENOrdering Facility: [facility] Address: [address] [place] [address] Performed By: #### 5 7021-8 ####[facility] LABORATORYCLIA [id number] [address] IMMATURE GRAN ABS 0.06 k/uL Normal <0.10 [facility] Comment on above: Order Comment: Speci men Type: BLOOD SPECIMENOrdering Facility: [facility] Address: [address] [place] [address] Performed By: #### 5 7021-8 ####[facility] LABORATORYCLIA [id number] [address] Lymphocytes (Bld) [#/Vol] 1.83 10*3/uL Normal 1.00-4.00 [facility] Comment on above: Order Comment: Speci men Type: BLOOD SPECIMENOrdering Facility: [facility] Address: [address] [place] [address] Performed By: #### 5 7021-8 ####[facility] LABORATORYCLIA [id number] [address] Lymphocytes/100 WBC (Bld) 16.1 % Normal [facility] Comment on above: Order Comment: Speci men Type: BLOOD SPECIMENOrdering Facility: [facility] Address: [address] [place] [address] Performed By: #### 5 7021-8 ####[facility] LABORATORYCLIA [id number] [address] MCH (RBC) [Entitic mass] 27.0 pg Normal 26.0-34.0 [facility] Comment on above: Order Comment: Speci men Type: BLOOD SPECIMENOrdering Facility: [facility] Address: [address] [place] [address] Performed By: #### 5 7021-8 ####[facility] LABORATORYCLIA [id number] [address] STATES [facility] MCHC (RBC) [Mass/Vol] 29.1 g/dL Low 30.5-36.0 [facility] Comment on above: Order Comment: Speci men Type: BLOOD SPECIMENOrdering Facility: [facility] Address: [address] [place] [address] Performed By: #### 5 7021-8 ####[facility] LABORATORYCLIA [id number] [address] [place] MCV (RBC) [Entitic vol] 92.8 fL Normal 80.0-100.0 [facility] Comment on above: Order Comment: Speci men Type: BLOOD SPECIMENOrdering Facility: [facility] Address: [address] [place] [address] Performed By: #### 5 7021-8 ####[facility] LABORATORYCLIA [id number] [address] [place] Monocytes (Bld) [#/Vol] 0.87 10*3/uL High <0.87 [facility] Comment on above: Order Comment: Speci men Type: BLOOD SPECIMENOrdering Facility: [facility] Address: [address] [place] [address] Performed By: #### 5 7021-8 ####[facility] LABORATORYCLIA [id number] [address] Monocytes/100 WBC (Bld) 7.6 % Normal [facility] Comment on above: Order Comment: Speci men Type: BLOOD SPECIMENOrdering Facility: [facility] Address: [address] [place] [address] Performed By: #### 5 7021-8 ####[facility] LABORATORYCLIA [id number] [address] [place] Neutrophils (Bld) [#/Vol] 8.12 10*3/uL High 1.45-7.50 [facility] Comment on above: Order Comment: Speci men Type: BLOOD SPECIMENOrdering Facility: [facility] Address: [address] [address] Performed By: #### 5 7021-8 ####[facility] LABORATORYCLIA [id number] [address] Neutrophils/100 WBC (Bld) 71.4 % Normal [facility] Comment on above: Order Comment: Speci men Type: BLOOD SPECIMENOrdering Facility: [facility] Address: [address] [place] [address] Performed By: #### 5 7021-8 ####[facility] LABORATORYCLIA [id number] [address] [place] Nucleated RBC (Bld) [#/Vol] 10*3/uL Normal <0.01 [facility] Comment on above: Order Comment: Speci men Type: BLOOD SPECIMENOrdering Facility: [facility] Address: [address] [place] [address] Performed By: #### 5 7021-8 ####[facility] LABORATORYCLIA [id number] [address] Nucleated RBC/100 WBC (Bld) [Ratio] 0.0 /100 WBC Normal [facility] Comment on above: Order Comment: Speci men Type: BLOOD SPECIMENOrdering Facility: [facility] Address: [address] [address] Performed By: #### 5 7021-8 ####[facility] LABORATORYCLIA [id number] [address] Platelet mean volume (Bld) [Entitic vol] 10.8 fL Normal 9.0-12.7 [facility] Comment on above: Order Comment: Speci men Type: BLOOD SPECIMENOrdering Facility: [facility] Address: [address] [place] [address] Performed By: #### 5 7021-8 ####[facility] LABORATORYCLIA [id number] [address] [facility] Platelets (Bld) [#/Vol] 362 10*3/uL Normal 150-400 [facility] Comment on above: Order Comment: Speci men Type: BLOOD SPECIMENOrdering Facility: [facility] Address: [address] [place] [address] Performed By: #### 5 7021-8 ####[facility] LABORATORYCLIA [id number] [place] [address] [place] RBC (Bld) [#/Vol] 3.45 10*6/uL Low 4.20-6.00 [facility] Comment on above: Order Comment: Speci men Type: BLOOD SPECIMENOrdering Facility: [facility] Address: [address] [place] [address] Performed By: #### 5 7021-8 ####[facility]CL[facility] [id number] [address] WBC (Bld) [#/Vol] 11.38 10*3/uL High 3.70-11.00 [facility] Comment on above: Order Comment: Speci men Type: BLOOD SPECIMENOrdering Facility: [facility] Address: [address] [place] [address] Performed By: #### 5 7021-8 ####[facility] LABORATORYCLIA [id number] [address] [place] [facility] Magnesium [Mass/Vol] 2.3 mg/dL Normal 1.7-2.3 [facility] Comment on above: Order Comment: Speci men Type: BLOOD SPECIMENOrdering Facility: [facility] Address: [address] [place] [address] Performed By: #### 1 9123-9, 2777-1, 54549-2 ####[facility] LABORATORYCLIA [id number] [address] [place] NT-proBNP SerPl-mCncon 07-22 Natriuretic peptide.B prohormone N-Terminal [Mass/Vol] 328 pg/mL High <125 [facility] Comment on above: Order Comment: Speci men Type: BLOOD SPECIMENOrdering Facility: [facility] Address: [address] [place] [address] Performed By: #### 1 9123-9, 2777-1, 01820-0 ####[facility] LABORATORYCLIA [id number] [address] [facility] NURSING PROGon 07-22-2021 NURSING PROG Normal [facility] NUTRITIONon 07-22-2021 NUTRITION Normal [facility] Phosphate SerPl-mCncon 07-22 Phosphate [Mass/Vol] 3.5 mg/dL Normal 2.7-4.8 [facility] Comment on above: Order Comment: Speci men Type: BLOOD SPECIMENOrdering Facility: [facility] Address: [address] [place] [address] Performed By: #### 1 9123-9, 2777-1, 46294-9 ####[facility] LABORATORYCLIA [id number] [address] THERAPY NTon 07-22-2021 THERAPY NT Normal [facility] THERAPY NT Normal [facility] aPTT PPPon 07-22-2021 aPTT Coag (PPP) [Time] 50.1 s High 23.0-32.4 [facility] Comment on above: Order Comment: Speci men Type: BLOOD SPECIMENOrdering Facility: [facility] Address: [address] [place] [address] Performed By: #### 1 4979-9 ####[facility] LABORATORYCLIA [id number] [address] [place] ALLIED HEALTHon 07-21-2021 ALLIED HEALTH Normal [facility] Bacteria Spec Resp Culton Bacteria identified Respiratory culture Nom (Unsp spec) Abnormal [facility] Comment on above: Performed By: #### 3 2355-0 ####[facility] LABORATORYCLIA [id number] [place] [address] [place] Basic metabolic 2000 panelon 07-21-2021 Anion gap [Moles/Vol] 9 mmol/L Normal 9-18 [facility] Comment on above: Order Comment: Speci men Type: BLOOD SPECIMENOrdering Facility: [facility] Address: [address] [place] [address] Performed By: #### 1 9123-9, 2777-1, 43316-4 ####[facility] LABORATORYCLIA [id number] [place] [address] [place] Calcium [Mass/Vol] 9.9 mg/dL Normal 8.5-10.2 [facility] Comment on above: Order Comment: Speci men Type: BLOOD SPECIMENOrdering Facility: [facility] Address: [address] [place] [address] Performed By: #### 1 9123-9, 2777-1, 16114-1 ####[facility] LABORATORYCLIA [id number] [place] [address] [place] Chloride [Moles/Vol] 103 mmol/L Normal 97-105 [facility] Comment on above: Order Comment: Speci men Type: BLOOD SPECIMENOrdering Facility: [facility] Address: [address] [place] [address] Performed By: #### 1 9123-9, 2777-1, 70419-7 ####[facility] LABORATORYCLIA [id number] [place] [address] [place] CO2 [Moles/Vol] 33 mmol/L High 22-30 [facility] Comment on above: Order Comment: Speci men Type: BLOOD SPECIMENOrdering Facility: [facility] Address: [address] [place] [address] Performed By: #### 1 9123-9, 2777-1, 59085-0 ####[facility] LABORATORYCLIA [id number] [place] [address] [place] Creatinine [Mass/Vol] 0.80 mg/dL Normal 0.73-1.22 [facility] Comment on above: Order Comment: Shira feldman Type: BLOOD SPECIMENOrdering Facility: [facility] Address: [address] [id number] Performed By: #### 1 9123-9, 2777-1, 39452-7 ####[facility] LABORATORYCLIA [id number] [address] [id number] [place] ESTIMATED GLOMERULAR FILTRATION RATE 96 mL/min/1.73m??? Normal >=60 [facility] Comment on above: Order Comment: Shira feldman Type: BLOOD SPECIMENOrdering Facility: [facility] Address: [address] Result Comment: Luzmaria mated Glomerular Filtration [...] GFR. Performed By: #### 1 9123-9, 2777-1, 72960-2 ####[facility] LABORATORYCLIA [id number] [place] [address] [place] Glucose [Mass/Vol] 148 mg/dL High 74-99 [facility] Comment on above: Order Comment: Shira feldman Type: BLOOD SPECIMENOrdering Facility: [facility] Address: [address] [address] Result Comment: The [place] [employer] (ADA) provides guidance for cutoff [...] Standards of Medical Care in Diabetes 2016, [place] [employer]. Diabetes Care. 2016.39(Suppl 1). Performed By: #### 1 9123-9, 2777-1, 58139-5 ####[facility] LABORATORYCLIA [id number] [address] [place] Potassium [Moles/Vol] 4.1 mmol/L Normal 3.7-5.1 [facility] Comment on above: Order Comment: Speci men Type: BLOOD SPECIMENOrdering Facility: [facility] Address: [address] [place] [address] Performed By: #### 1 9123-9, 2777-1, 38411-8 ####[facility] LABORATORYCLIA [id number] [address] STATES [facility] Sodium [Moles/Vol] 145 mmol/L High 136-144 [facility] Comment on above: Order Comment: Speci men Type: BLOOD SPECIMENOrdering Facility: [facility] Address: [address] [place] [address] Performed By: #### 1 9123-9, 2777-, 49178-6 ####[facility] LABORATORYCLIA [id number] [address] STATES [facility] Urea nitrogen [Mass/Vol] 40 mg/dL High 9-24 [facility] Comment on above: Order Comment: Speci men Type: BLOOD SPECIMENOrdering Facility: [facility] Address: [address] [place] [address] Performed By: #### 1 9123-9, 2777-, 07677-3 ####[facility] LABORATORYCLIA [id number] [address] [place] CBC W Auto Differential pane l (Bld)on 07-21-2021 Basophils (Bld) [#/Vol] 0.06 10*3/uL Normal <0.11 [facility] Comment on above: Order Comment: Speci men Type: BLOOD SPECIMENOrdering Facility: [facility] Address: [address] [place] [address] Performed By: #### 5 7021-8 ####[facility]ORATORYCLIA [id number] [address] [place] Basophils/100 WBC (Bld) 0.4 % Normal [facility] Comment on above: Order Comment: Speci men Type: BLOOD SPECIMENOrdering Facility: [facility] Address: [address] [place] [address] Performed By: #### 5 7021-8 ####[facility]ATORYCLIA [id number] [address] [place] Differential cell count method Nom (Bld) Auto Normal [facility] Comment on above: Order Comment: Speci men Type: BLOOD SPECIMENOrdering Facility: [facility] Address: [address] [place] [address] Performed By: #### 5 7021-8 ####[facility]ATORYCLIA [id number] [address] [place] Eosinophils (Bld) [#/Vol] 0.04 10*3/uL Normal <0.46 [facility] Comment on above: Order Comment: Speci men Type: BLOOD SPECIMENOrdering Facility: [facility] Address: [address] [place] [address] Performed By: #### 5 7021-8 ####[facility]ORATORYCLIA [id number] [address] [place] Eosinophils/100 WBC (Bld) 0.3 % Normal [facility] Comment on above: Order Comment: Speci men Type: BLOOD SPECIMENOrdering Facility: [facility] Address: [address] [place] [address] Performed By: #### 5 7021-8 ####[facility]ATORYCLIA [id number] [address] [place] Erythrocyte distribution width (RBC) [Ratio] 17.0 % High 11.5-15.0 [facility] Comment on above: Order Comment: Speci men Type: BLOOD SPECIMENOrdering Facility: [facility] Address: [address] [place], [place] [address] Performed By: #### 5 7021-8 ####[facility] LABORATORYCLIA [id number] [address] Hematocrit (Bld) [Volume fraction] 33.1 % Low 39.0-51.0 [facility] Comment on above: Order Comment: Speci men Type: BLOOD SPECIMENOrdering Facility: [facility] Address: [address] [place] [address] Performed By: #### 5 7021-8 ####[facility] LABORATORYCLIA [id number] [address] Hemoglobin (Bld) [Mass/Vol] 9.7 g/dL Low 13.0-17.0 [facility] Comment on above: Order Comment: Speci men Type: BLOOD SPECIMENOrdering Facility: [facility] Address: [address] [place] [address] Performed By: #### 5 7021-8 ####[facility] LABORATORYCLIA [id number] [address] IMMATURE GRAN % 0.5 % Normal [facility] Comment on above: Order Comment: Speci men Type: BLOOD SPECIMENOrdering Facility: [facility] Address: [address] [place] [address] Performed By: #### 5 7021-8 ####[facility] LABORATORYCLIA [id number] [address] IMMATURE GRAN ABS 0.07 k/uL Normal <0.10 [facility] Comment on above: Order Comment: Speci men Type: BLOOD SPECIMENOrdering Facility: [facility] Address: [address] [place] [address] Performed By: #### 5 7021-8 ####[facility] LABORATORYCLIA [id number] [address] [place] Lymphocytes (Bld) [#/Vol] 1.99 10*3/uL Normal 1.00-4.00 [facility] Comment on above: Order Comment: Speci men Type: BLOOD SPECIMENOrdering Facility: [facility] Address: [address] [place] [address] Performed By: #### 5 7021-8 ####[facility] LABORATORYCLIA [id number] [address] Lymphocytes/100 WBC (Bld) 13.4 % Normal [facility] Comment on above: Order Comment: Speci men Type: BLOOD SPECIMENOrdering Facility: [facility] Address: [address] [place] [address] Performed By: #### 5 7021-8 ####[facility] LABORATORYCLIA [id number] [address] MCH (RBC) [Entitic mass] 27.2 pg Normal 26.0-34.0 [facility] Comment on above: Order Comment: Speci men Type: BLOOD SPECIMENOrdering Facility: [facility] Address: [address] [place] [address] Performed By: #### 5 7021-8 ####[facility] LABORATORYCLIA [id number] [address] MCHC (RBC) [Mass/Vol] 29.3 g/dL Low 30.5-36.0 [facility] Comment on above: Order Comment: Speci men Type: BLOOD SPECIMENOrdering Facility: [facility] Address: [address] [place] [address] Performed By: #### 5 7021-8 ####[facility] LABORATORYCLIA [id number] [address] STATES [facility] MCV (RBC) [Entitic vol] 92.7 fL Normal 80.0-100.0 [facility] Comment on above: Order Comment: Speci men Type: BLOOD SPECIMENOrdering Facility: [facility] Address: [address] [place] [address] Performed By: #### 5 7021-8 ####[facility] LABORATORYCLIA [id number] [place] [address] [place] Monocytes (Bld) [#/Vol] 1.10 10*3/uL High <0.87 [facility] Comment on above: Order Comment: Speci men Type: BLOOD SPECIMENOrdering Facility: [facility] Address: [address] [place] [address] Performed By: #### 5 7021-8 ####[facility] LABORATORYCLIA [id number] [place] [address] [place] Monocytes/100 WBC (Bld) 7.4 % Normal [facility] Comment on above: Order Comment: Speci men Type: BLOOD SPECIMENOrdering Facility: [facility] Address: [address] [place] [address] Performed By: #### 5 7021-8 ####[facility] LABORATORYCLIA [id number] [address] [place] Neutrophils (Bld) [#/Vol] 11.61 10*3/uL High 1.45-7.50 [facility] Comment on above: Order Comment: Speci men Type: BLOOD SPECIMENOrdering Facility: [facility] Address: [address] [place] [address] Performed By: #### 5 7021-8 ####[facility] LABORATORYCLIA [id number] [address] [place] Neutrophils/100 WBC (Bld) 78.0 % Normal [facility] Comment on above: Order Comment: Speci men Type: BLOOD SPECIMENOrdering Facility: [facility] Address: [address] [address] Performed By: #### 5 7021-8 ####[facility] LABORATORYCLIA [id number] [place] [address] [place] Nucleated RBC (Bld) [#/Vol] 10*3/uL Normal <0.01 [facility] Comment on above: Order Comment: Speci men Type: BLOOD SPECIMENOrdering Facility: [facility] Address: [address] [place] [address] Performed By: #### 5 7021-8 ####[facility] LABORATORYCLIA [id number] [address] [place] Nucleated RBC/100 WBC (Bld) [Ratio] 0.0 /100 WBC Normal [facility] Comment on above: Order Comment: Speci men Type: BLOOD SPECIMENOrdering Facility: [facility] Address: [address] [place] [address] Performed By: #### 5 7021-8 ####[facility] LABORATORYCLIA [id number] [address] [place] Platelet mean volume (Bld) [Entitic vol] 10.4 fL Normal 9.0-12.7 [facility] Comment on above: Order Comment: Speci men Type: BLOOD SPECIMENOrdering Facility: [facility] Address: [address] [place] [address] Performed By: #### 5 7021-8 ####[facility] LABORATORYCLIA [id number] [address] [facility] Platelets (Bld) [#/Vol] 396 10*3/uL Normal 150-400 [facility] Comment on above: Order Comment: Speci men Type: BLOOD SPECIMENOrdering Facility: [facility] Address: [address] [place] [address] Performed By: #### 5 7021-8 ####[facility] LABORATORYCLIA [id number] [address] [place] RBC (Bld) [#/Vol] 3.57 10*6/uL Low 4.20-6.00 [facility] Comment on above: Order Comment: Speci men Type: BLOOD SPECIMENOrdering Facility: [facility] Address: [address] [place] [address] Performed By: #### 5 7021-8 ####[facility] LABORATORYCLIA [id number] [address] [place] WBC (Bld) [#/Vol] 14.87 10*3/uL High 3.70-11.00 [facility] Comment on above: Order Comment: Speci men Type: BLOOD SPECIMENOrdering Facility: [facility] Address: [address] [place] [address] Performed By: #### 5 7021-8 ####[facility] LABORATORYCLIA [id number] [address] [place] Gas and Carbon monoxide pane l (BldV)on 07-21-2021 Base excess Calc (BldV) [Moles/Vol] 7 mmol/L High 0-2 [facility] Comment on above: Order Comment: Speci men Type: VENOUS BLOOD SPECIMENOrdering Facility: [facility] Address: [address] [place] [address] Performed By: #### 2 4344-4 ####[facility] LABORATORYCLIA [id number] [address] Body temperature 98.6 [degF] Normal [facility] Comment on above: Order Comment: Speci men Type: VENOUS BLOOD SPECIMENOrdering Facility: [facility] Address: [address] [place] [address] Performed By: #### 2 4344-4 ####[facility] LABORATORYCLIA [id number] [address] [place] CALCIUM IONIZED, PH CORRECTED 1.21 mmol/L Normal 1.08-1.30 [facility] Comment on above: Order Comment: Speci men Type: VENOUS BLOOD SPECIMENOrdering Facility: [facility] Address: [address] [place] [address] Performed By: #### 2 4344-4 ####[facility] LABORATORYCLIA [id number] [address] [place] Calcium.ionized (BldV) [Mass/Vol] 1.23 mmol/L Normal 1.08-1.30 [facility] Comment on above: Order Comment: Speci men Type: VENOUS BLOOD SPECIMENOrdering Facility: [facility] Address: [address] [place] [address] Performed By: #### 2 4344-4 ####[facility] LABORATORYCLIA [id number] [address] [place] Carboxyhemoglobin (BldV) [Mass fraction] 2.3 % High 0.0-2.0 [facility] Comment on above: Order Comment: Speci men Type: VENOUS BLOOD SPECIMENOrdering Facility: [facility] Address: [address] [place] [address] Result Comment: Carb oxyhemoglobin Reference Range for Smokers: 2.0-8.0% Performed By: #### 2 4344-4 ####[facility] LABORATORYCLIA [id number] [address] [place] CO2 (BldV) [Partial pressure] 58 mm[Hg] High 42-55 [facility] Comment on above: Order Comment: Speci men Type: VENOUS BLOOD SPECIMENOrdering Facility: [facility] Address: [address] [place] [address] Performed By: #### 2 4344-4 ####[facility] LABORATORYCLIA [id number] [place] [address] [place] CO2 [Moles/Vol] 31 mmol/L High 25-29 [facility] Comment on above: Order Comment: Speci men Type: VENOUS BLOOD SPECIMENOrdering Facility: [facility] Address: [address] [place] [address] Performed By: #### 2 4344-4 ####[facility] LABORATORYCLIA [id number] [place] [address] [place] Glucose [Mass/Vol] 146 mg/dL High 60-105 [facility] Comment on above: Order Comment: Speci men Type: VENOUS BLOOD SPECIMENOrdering Facility: [facility] Address: [address] [place] [address] Performed By: #### 2 4344-4 ####[facility] LABORATORYCLIA [id number] [place] [address] [place] HCO3 (Bld) [Moles/Vol] 33 mmol/L High 24-28 [facility] Comment on above: Order Comment: Speci men Type: VENOUS BLOOD SPECIMENOrdering Facility: [facility] Address: [address] [place] [address] Performed By: #### 2 4344-4 ####[facility] LABORATORYCLIA [id number] [address] Hematocrit (Bld) [Volume fraction] 30.1 % Low 39.0-51.0 [facility] Comment on above: Order Comment: Speci men Type: VENOUS BLOOD SPECIMENOrdering Facility: [facility] Address: [address] [place] [address] Performed By: #### 2 4344-4 ####[facility] LABORATORYCLIA [id number] [address] Hemoglobin (Bld) [Mass/Vol] 9.7 g/dL Low 13.0-17.0 [facility] Comment on above: Order Comment: Speci men Type: VENOUS BLOOD SPECIMENOrdering Facility: [facility] Address: [address] [place] [address] Performed By: #### 2 4344-4 ####[facility] LABORATORYCLIA [id number] [address] Methemoglobin (Bld) [Mass fraction] % Normal 0.0-1.5 [facility] Comment on above: Order Comment: Speci men Type: VENOUS BLOOD SPECIMENOrdering Facility: [facility] Address: [address] [place] [address] Performed By: #### 2 4344-4 ####[facility] LABORATORYCLIA [id number] [address] O2 THERAPY NC = Nasal Cannula Normal [facility] Comment on above: Order Comment: Speci men Type: VENOUS BLOOD SPECIMENOrdering Facility: [facility] Address: [address] [place] [address] Performed By: #### 2 4344-4 ####[facility] LABORATORYCLIA [id number] [place] [address] [place] Oxygen (BldV) [Partial pressure] 64 mm[Hg] High 35-45 [facility] Comment on above: Order Comment: Speci men Type: VENOUS BLOOD SPECIMENOrdering Facility: [facility] Address: [address] [place] [address] Performed By: #### 2 4344-4 ####[facility] LABORATORYCLIA [id number] [address] [place] Oxygen saturation in Blood 90 % High 60-85 [facility] Comment on above: Order Comment: Speci men Type: VENOUS BLOOD SPECIMENOrdering Facility: [facility] Address: [address] [place] [address] Performed By: #### 2 4344-4 ####[facility] LABORATORYCLIA [id number] [address] [place] Oxyhemoglobin (BldV) [Mass fraction] 87 % High 60-85 [facility] Comment on above: Order Comment: Speci men Type: VENOUS BLOOD SPECIMENOrdering Facility: [facility] Address: [address] [place] [address] Performed By: #### 2 4344-4 ####[facility] LABORATORYCLIA [id number] [address] [place] pH (BldV) 7.38 [pH] Normal 7.32-7.42 [facility] Comment on above: Order Comment: Speci men Type: VENOUS BLOOD SPECIMENOrdering Facility: [facility] Address: [address] [place] [address] Performed By: #### 2 4344-4 ####[facility] LABORATORYCLIA [id number] [address] [place] Potassium [Moles/Vol] 3.8 mmol/L Normal 3.5-5.0 [facility] Comment on above: Order Comment: Speci men Type: VENOUS BLOOD SPECIMENOrdering Facility: [facility] Address: [address] [place] [address] Performed By: #### 2 4344-4 ####[facility] LABORATORYCLIA [id number] [address] [place] Sodium [Moles/Vol] 145 mmol/L High 136-144 [facility] Comment on above: Order Comment: Speci men Type: VENOUS BLOOD SPECIMENOrdering Facility: [facility] Address: [address] [place] [address] Performed By: #### 2 4344-4 ####[facility] LABORATORYCLIA [id number] [address] [place] Base excess Calc (BldV) [Moles/Vol] 8 mmol/L High 0-2 [facility] Comment on above: Order Comment: Speci men Type: VENOUS BLOOD SPECIMENOrdering Facility: [facility] Address: [address] [place] [address] Performed By: #### 2 4344-4 ####[facility] LABORATORYCLIA [id number] [address] STATES [facility] Body temperature 100.22 [degF] Normal [facility] Comment on above: Order Comment: Speci men Type: VENOUS BLOOD SPECIMENOrdering Facility: [facility] Address: [address] [place] [address] Performed By: #### 2 4344-4 ####[facility] LABORATORYCLIA [id number] [address] [place] CALCIUM IONIZED, PH CORRECTED 1.25 mmol/L Normal 1.08-1.30 [facility] Comment on above: Order Comment: Speci men Type: VENOUS BLOOD SPECIMENOrdering Facility: [facility] Address: [address] [place] [address] Performed By: #### 2 4344-4 ####[facility] LABORATORYCLIA [id number] [address] Calcium.ionized (BldV) [Mass/Vol] 1.24 mmol/L Normal 1.08-1.30 [facility] Comment on above: Order Comment: Speci men Type: VENOUS BLOOD SPECIMENOrdering Facility: [facility] Address: [address] [place] [address] Performed By: #### 2 4344-4 ####[facility] LABORATORYCLIA [id number] [address] Carboxyhemoglobin (BldV) [Mass fraction] 2.5 % High 0.0-2.0 [facility] Comment on above: Order Comment: Speci men Type: VENOUS BLOOD SPECIMENOrdering Facility: [facility] Address: [address] [place] [address] Result Comment: Carb oxyhemoglobin Reference Range for Smokers: 2.0-8.0% Performed By: #### 2 4344-4 ####[facility] LABORATORYCLIA [id number] [address] [place] CO2 (BldV) [Partial pressure] 53 mm[Hg] Normal 42-55 [facility] Comment on above: Order Comment: Speci men Type: VENOUS BLOOD SPECIMENOrdering Facility: [facility] Address: [address] [place] [address] Performed By: #### 2 4344-4 ####[facility] LABORATORYCLIA [id number] [address] [place] CO2 [Moles/Vol] 31 mmol/L High 25-29 [facility] Comment on above: Order Comment: Speci men Type: VENOUS BLOOD SPECIMENOrdering Facility: [facility] Address: [address] [place] [address] Performed By: #### 2 4344-4 ####[facility] LABORATORYCLIA [id number] [address] [place] CO2 adjusted to patient's actual temperature (BldV) [Partial pressure] 56 mmHg High 42-55 [facility] Comment on above: Order Comment: Speci men Type: VENOUS BLOOD SPECIMENOrdering Facility: [facility] Address: [address] [place] [address] Performed By: #### 2 4344-4 ####[facility]ORATORYCLIA [id number] [address] [place] Glucose [Mass/Vol] 131 mg/dL High 60-105 [facility] Comment on above: Order Comment: Speci men Type: VENOUS BLOOD SPECIMENOrdering Facility: [facility] Address: [address] [address] Performed By: #### 2 4344-4 ####[facility] LABORATORYCLIA [id number] [place] [address] [place] HCO3 (Bld) [Moles/Vol] 33 mmol/L High 24-28 [facility] Comment on above: Order Comment: Speci men Type: VENOUS BLOOD SPECIMENOrdering Facility: [facility] Address: [address] [place] [address] Performed By: #### 2 4344-4 ####[facility] LABORATORYCLIA [id number] [address] [place] Hematocrit (Bld) [Volume fraction] 30.8 % Low 39.0-51.0 [facility] Comment on above: Order Comment: Speci men Type: VENOUS BLOOD SPECIMENOrdering Facility: [facility] Address: [address] [place] [address] Performed By: #### 2 4344-4 ####[facility] LABORATORYCLIA [id number] [address] [place] Hemoglobin (Bld) [Mass/Vol] 10.0 g/dL Low 13.0-17.0 [facility] Comment on above: Order Comment: Speci men Type: VENOUS BLOOD SPECIMENOrdering Facility: [facility] Address: [address] [address] Performed By: #### 2 4344-4 ####[facility] LABORATORYCLIA [id number] [address] [place] Methemoglobin (Bld) [Mass fraction] % Normal 0.0-1.5 [facility] Comment on above: Order Comment: Speci men Type: VENOUS BLOOD SPECIMENOrdering Facility: [facility] Address: [address] [place], [place] [address] Performed By: #### 2 4344-4 ####[facility]ORATORYCLIA [id number] [address] O2 THERAPY NC = Nasal Cannula Normal [facility] Comment on above: Order Comment: Speci men Type: VENOUS BLOOD SPECIMENOrdering Facility: [facility] Address: [address] [place] [address] Performed By: #### 2 4344-4 ####[facility]ORATORYCLIA [id number] [address] [place] Oxygen (BldV) [Partial pressure] 58 mm[Hg] High 35-45 [facility] Comment on above: Order Comment: Speci men Type: VENOUS BLOOD SPECIMENOrdering Facility: [facility] Address: [address] [place] [address] Performed By: #### 2 4344-4 ####[facility]ORATORYCLIA [id number] [address] Oxygen adjusted to patient's actual temperature (BldV) [Partial pressure] 61 mmHg High 35-45 [facility] Comment on above: Order Comment: Speci men Type: VENOUS BLOOD SPECIMENOrdering Facility: [facility] Address: [address] [place] [address] Performed By: #### 2 4344-4 ####[facility]ORATORYCLIA [id number] [address] [place] Oxygen saturation in Blood 88 % High 60-85 [facility] Comment on above: Order Comment: Speci men Type: VENOUS BLOOD SPECIMENOrdering Facility: [facility] Address: [address] [place] [address] Performed By: #### 2 4344-4 ####[facility]ORATORYCLIA [id number] [address] [place] Oxyhemoglobin (BldV) [Mass fraction] 85 % Normal 60-85 [facility] Comment on above: Order Comment: Speci men Type: VENOUS BLOOD SPECIMENOrdering Facility: [facility] Address: [address] [place] [address] Performed By: #### 2 4344-4 ####[facility] LABORATORYCLIA [id number] [address] pH (BldV) 7.41 [pH] Normal 7.32-7.42 [facility] Comment on above: Order Comment: Speci men Type: VENOUS BLOOD SPECIMENOrdering Facility: [facility] Address: [address] [place] [address] Performed By: #### 2 4344-4 ####[facility] LABORATORYCLIA [id number] [address] pH adjusted to patient's actual temperature (BldV) 7.40 Normal 7.32-7.42 [facility] Comment on above: Order Comment: Speci men Type: VENOUS BLOOD SPECIMENOrdering Facility: [facility] Address: [address] [place] [address] Performed By: #### 2 4344-4 ####[facility] LABORATORYCLIA [id number] [address] Potassium [Moles/Vol] 4.0 mmol/L Normal 3.5-5.0 [facility] Comment on above: Order Comment: Speci men Type: VENOUS BLOOD SPECIMENOrdering Facility: [facility] Address: [address] [place] [address] Performed By: #### 2 4344-4 ####[facility] LABORATORYCLIA [id number] [address] [place] Sodium [Moles/Vol] 146 mmol/L High 136-144 [facility] Comment on above: Order Comment: Speci men Type: VENOUS BLOOD SPECIMENOrdering Facility: [facility] Address: [address] [place] [address] Performed By: #### 2 4344-4 ####[facility] LABORATORYCLIA [id number] [address] [place] Magnesium SerPl-mCncon 07-21 Magnesium [Mass/Vol] 2.5 mg/dL High 1.7-2.3 [facility] Comment on above: Order Comment: Speci men Type: BLOOD SPECIMENOrdering Facility: [facility] Address: [address] [place] [address] Performed By: #### 1 9123-9, 2777-1, 03425-6 ####[facility] LABORATORYCLIA [id number] [address] [facility] NURSING PROGon 07-21-2021 NURSING PROG Normal [facility]ate [facility] Phosphate [Mass/Vol] 3.7 mg/dL Normal 2.7-4.8 [facility] Comment on above: Order Comment: Speci men Type: BLOOD SPECIMENOrdering Facility: [facility] Address: [address] [place] [address] Performed By: #### 1 9123-9, 2777-1, 17348-6 ####[facility] LABORATORYCLIA [id number] [address] THERAPY NTon 07-21-2021 THERAPY NT Normal [facility] XR CHEST 1V FRONTALon 2021 XR CHEST 1V FRONTAL Normal [facility] aPTT PPPon 07-21-2021 aPTT Coag (PPP) [Time] 53.0 s High 23.0-32.4 [facility] Comment on above: Order Comment: Speci men Type: BLOOD SPECIMENOrdering Facility: [facility] Address: [address] [place] [address] Performed By: #### 1 4979-9 ####[facility] LABORATORYCLIA [id number] [address] [place] ALLIED HEALTHon 07-20-2021 ALLIED HEALTH Normal [facility] Basic metabolic 2000 panelon 07-20-2021 Anion gap [Moles/Vol] 8 mmol/L Low 9-18 [facility] Comment on above: Order Comment: Speci men Type: BLOOD SPECIMENOrdering Facility: [facility] Address: [address] Performed By: #### 2 4321-2, , 2776-05 ####[facility] LABORATORYCLIA [id number] [place] [address] [place] Calcium [Mass/Vol] 9.7 mg/dL Normal 8.5-10.2 [facility] Comment on above: Order Comment: Speci men Type: BLOOD SPECIMENOrdering Facility: [facility] Address: [address] [place], [place] [address] Performed By: #### 2 4321-2, , 2776-05 ####[facility] LABORATORYCLIA [id number] [place] [address] [place] Chloride [Moles/Vol] 104 mmol/L Normal 97-105 [facility] Comment on above: Order Comment: Speci men Type: BLOOD SPECIMENOrdering Facility: [facility] Address: [address] [place] [address] Performed By: #### 2 1-2, , 2776-05 ####[facility] LABORATORYCLIA [id number] [place] [address] [place] CO2 [Moles/Vol] 34 mmol/L High 22-30 [facility] Comment on above: Order Comment: Speci men Type: BLOOD SPECIMENOrdering Facility: [facility] Address: [address] Performed By: #### 2 4321-2, , 2776-05 ####[facility] LABORATORYCLIA [id number] [place] [address] [place] Creatinine [Mass/Vol] 0.76 mg/dL Normal 0.73-1.22 [facility] Comment on above: Order Comment: Speci men Type: BLOOD SPECIMENOrdering Facility: [facility] Address: [address] [place] [address] Performed By: #### 2 4321-2, , 2776-05 ####[facility]PITALIA [id number] [address] ESTIMATED GLOMERULAR FILTRATION RATE 97 mL/min/1.73m??? Normal >=60 [facility] Comment on above: Order Comment: Shira francia Type: BLOOD SPECIMENOrdering Facility: [facility] Address: [address] [place] [address] Result Comment: Luzmaria mated Glomerular Filtration Rate [...] Performed By: #### 2 4321-2, , 2776-05 ####[facility]OSPITALIA [id number] [address] Glucose [Mass/Vol] 123 mg/dL High 74-99 [facility] Comment on above: Order Comment: Shira feldman Type: BLOOD SPECIMENOrdering Facility: [facility] Address: [address] [place] [address] Result Comment: The [place] Diabetes Association (ADA) provides guidance for cutoff [...] Standards of Medical Care in Diabetes 2016, [place] Diabetes Association. Diabetes Care. 2016.39(Suppl 1). Performed By: #### 2 4321-2, , 2776-05 ####[facility] HOSPITALIA [id number] [place] [id number] [place] Potassium [Moles/Vol] 4.4 mmol/L Normal 3.7-5.1 [facility] Comment on above: Order Comment: Speci men Type: BLOOD SPECIMENOrdering Facility: [facility] Address: [address] [place] [address] Performed By: #### 2 4321-2, 04623-5, 2776- ####[facility] [facility] LABORATORYCLIA [id number] [address] [place] Sodium [Moles/Vol] 146 mmol/L High 136-144 [facility] Comment on above: Order Comment: Speci men Type: BLOOD SPECIMENOrdering Facility: [facility] Address: [address] [place] [address] Performed By: #### 2 4321-2, , 2776- ####[facility] LABORATORYCLIA [id number] [address] STATES [facility] Urea nitrogen [Mass/Vol] 38 mg/dL High 9-24 [facility] Comment on above: Order Comment: Speci men Type: BLOOD SPECIMENOrdering Facility: [facility] Address: [address] [place] [address] Performed By: #### 2 4321-2, , 2776-05 ####[facility] LABORATORYCLIA [id number] [address] OF [facility] CASE MANAGEMon 07-20-2021 CASE MANAGEM Normal [facility] CBC W Auto Differential pane l (Bld)on 07-20-2021 Basophils (Bld) [#/Vol] 0.05 10*3/uL Normal <0.11 [facility] Comment on above: Order Comment: Speci men Type: BLOOD SPECIMENOrdering Facility: [facility] Address: [address] [place] [address] Performed By: #### 5 7021-8 ####[facility] LABORATORYCLIA [id number] [address] [place] Basophils/100 WBC (Bld) 0.5 % Normal [facility] Comment on above: Order Comment: Speci men Type: BLOOD SPECIMENOrdering Facility: [facility] Address: [address] [place] [address] Performed By: #### 5 7021-8 ####[facility] LABORATORYCLIA [id number] [address] Differential cell count method Nom (Bld) Auto Normal [facility] Comment on above: Order Comment: Speci men Type: BLOOD SPECIMENOrdering Facility: [facility] Address: [address] [place] [address] Performed By: #### 5 7021-8 ####[facility] LABORATORYCLIA [id number] [address] [place] Eosinophils (Bld) [#/Vol] 0.43 10*3/uL Normal <0.46 [facility] Comment on above: Order Comment: Speci men Type: BLOOD SPECIMENOrdering Facility: [facility] Address: [address] [place] [address] Performed By: #### 5 7021-8 ####[facility] LABORATORYCLIA [id number] [address] Eosinophils/100 WBC (Bld) 4.1 % Normal [facility] Comment on above: Order Comment: Speci men Type: BLOOD SPECIMENOrdering Facility: [facility] Address: [address] [place] [address] Performed By: #### 5 7021-8 ####[facility] LABORATORYCLIA [id number] [address] [place] Erythrocyte distribution width (RBC) [Ratio] 16.7 % High 11.5-15.0 [facility] Comment on above: Order Comment: Speci men Type: BLOOD SPECIMENOrdering Facility: [facility] Address: [address] [place] [address] Performed By: #### 5 7021-8 ####[facility] LABORATORYCLIA [id number] [address] Hematocrit (Bld) [Volume fraction] 33.0 % Low 39.0-51.0 [facility] Comment on above: Order Comment: Speci men Type: BLOOD SPECIMENOrdering Facility: [facility] Address: [address] [place] [address] Performed By: #### 5 7021-8 ####[facility] LABORATORYCLIA [id number] [address] [place] Hemoglobin (Bld) [Mass/Vol] 9.7 g/dL Low 13.0-17.0 [facility] Comment on above: Order Comment: Speci men Type: BLOOD SPECIMENOrdering Facility: [facility] Address: [address] [place] [address] Performed By: #### 5 7021-8 ####[facility] LABORATORYCLIA [id number] [address] IMMATURE GRAN % 0.4 % Normal [facility] Comment on above: Order Comment: Speci men Type: BLOOD SPECIMENOrdering Facility: [facility] Address: [address] [place] [address] Performed By: #### 5 7021-8 ####[facility] LABORATORYCLIA [id number] [address] IMMATURE GRAN ABS 0.04 k/uL Normal <0.10 [facility] Comment on above: Order Comment: Speci men Type: BLOOD SPECIMENOrdering Facility: [facility] Address: [address] [place] [address] Performed By: #### 5 7021-8 ####[facility] LABORATORYCLIA [id number] [address] [place] Lymphocytes (Bld) [#/Vol] 1.99 10*3/uL Normal 1.00-4.00 [facility] Comment on above: Order Comment: Speci men Type: BLOOD SPECIMENOrdering Facility: [facility] Address: [address] [place] [address] Performed By: #### 5 7021-8 ####[facility] LABORATORYCLIA [id number] [address] Lymphocytes/100 WBC (Bld) 18.8 % Normal [facility] Comment on above: Order Comment: Speci men Type: BLOOD SPECIMENOrdering Facility: [facility] Address: [address] [place] [address] Performed By: #### 5 7021-8 ####[facility] LABORATORYCLIA [id number] [address] MCH (RBC) [Entitic mass] 27.8 pg Normal 26.0-34.0 [facility] Comment on above: Order Comment: Speci men Type: BLOOD SPECIMENOrdering Facility: [facility] Address: [address] [place] [address] Performed By: #### 5 7021-8 ####[facility] LABORATORYCLIA [id number] [address] MCHC (RBC) [Mass/Vol] 29.4 g/dL Low 30.5-36.0 [facility] Comment on above: Order Comment: Speci men Type: BLOOD SPECIMENOrdering Facility: [facility] Address: [address] [place] [address] Performed By: #### 5 7021-8 ####[facility] LABORATORYCLIA [id number] [address] MCV (RBC) [Entitic vol] 94.6 fL Normal 80.0-100.0 [facility] Comment on above: Order Comment: Speci men Type: BLOOD SPECIMENOrdering Facility: [facility] Address: [address] [place] [address] Performed By: #### 5 7021-8 ####[facility] LABORATORYCLIA [id number] [address] Monocytes (Bld) [#/Vol] 0.82 10*3/uL Normal <0.87 [facility] Comment on above: Order Comment: Speci men Type: BLOOD SPECIMENOrdering Facility: [facility] Address: [address] [place] [address] Performed By: #### 5 7021-8 ####[facility]ATORYCLIA [id number] [address] [place] Monocytes/100 WBC (Bld) 7.8 % Normal [facility] Comment on above: Order Comment: Speci men Type: BLOOD SPECIMENOrdering Facility: [facility] Address: [address] [place] [address] Performed By: #### 5 7021-8 ####[facility]ORATORYCLIA [id number] [place] [address] [place] Neutrophils (Bld) [#/Vol] 7.23 10*3/uL Normal 1.45-7.50 [facility] Comment on above: Order Comment: Speci men Type: BLOOD SPECIMENOrdering Facility: [facility] Address: [address] [place] [address] Performed By: #### 5 7021-8 ####[facility] LABORATORYCLIA [id number] [address] [place] Neutrophils/100 WBC (Bld) 68.4 % Normal [facility] Comment on above: Order Comment: Speci men Type: BLOOD SPECIMENOrdering Facility: [facility] Address: [address] [place] [address] Performed By: #### 5 7021-8 ####[facility] LABORATORYCLIA [id number] [place] [address] [place] Nucleated RBC (Bld) [#/Vol] 10*3/uL Normal <0.01 [facility] Comment on above: Order Comment: Speci men Type: BLOOD SPECIMENOrdering Facility: [facility] Address: [address] [place] [address] Performed By: #### 5 7021-8 ####[facility] LABORATORYCLIA [id number] [address] [place] Nucleated RBC/100 WBC (Bld) [Ratio] 0.0 /100 WBC Normal [facility] Comment on above: Order Comment: Speci men Type: BLOOD SPECIMENOrdering Facility: [facility] Address: [address] [place] [address] Performed By: #### 5 7021-8 ####[facility] LABORATORYCLIA [id number] [place] [address] [place] Platelet mean volume (Bld) [Entitic vol] 10.5 fL Normal 9.0-12.7 [facility] Comment on above: Order Comment: Speci men Type: BLOOD SPECIMENOrdering Facility: [facility] Address: [address] [place] [address] Performed By: #### 5 7021-8 ####[facility] LABORATORYCLIA [id number] [place] [address] [place] Platelets (Bld) [#/Vol] 400 10*3/uL Normal 150-400 [facility] Comment on above: Order Comment: Speci men Type: BLOOD SPECIMENOrdering Facility: [facility] Address: [address] [place] [address] Performed By: #### 5 7021-8 ####[facility] LABORATORYCLIA [id number] [place] [address] [place] RBC (Bld) [#/Vol] 3.49 10*6/uL Low 4.20-6.00 [facility] Comment on above: Order Comment: Speci men Type: BLOOD SPECIMENOrdering Facility: [facility] Address: [address] [place] [address] Performed By: #### 5 7021-8 ####[facility] LABORATORYCLIA [id number] [place] [address] [place] WBC (Bld) [#/Vol] 10.56 10*3/uL Normal 3.70-11.00 [facility] Comment on above: Order Comment: Speci men Type: BLOOD SPECIMENOrdering Facility: [facility] Address: [address] [place] [address] Performed By: #### 5 7021-8 ####[facility] LABORATORYCLIA [id number] [address] CONSULT PROGon 07-20-2021 CONSULT PROG Normal [facility] CT BRAIN WO IVCONon 07-21-[address] BRAIN WO IVCON Normal [facility] Magnesium SerPl-mCncon 07-20 Magnesium [Mass/Vol] 2.4 mg/dL High 1.7-2.3 [facility] Comment on above: Order Comment: Speci men Type: BLOOD SPECIMENOrdering Facility: [facility] Address: [address] [place] [address] Performed By: #### 2 4321-2, , 2777- ####[facility] LABORATORYCLIA [id number] [address] NUTRITIONon 07-20-2021 NUTRITION Normal [facility] Phosphate SerPl-mCncon 07-20 Phosphate [Mass/Vol] 4.1 mg/dL Normal 2.7-4.8 [facility] Comment on above: Order Comment: Speci men Type: BLOOD SPECIMENOrdering Facility: [facility] Address: [address] [place] [address] Performed By: #### 2 4321-2, 07525-6, 2777-1 ####[facility] LABORATORYCLIA [id number] [address] [place] aPTT PPPon 07-20-2021 aPTT Coag (PPP) [Time] 53.6 s High 23.0-32.4 [facility] Comment on above: Order Comment: Speci men Type: BLOOD SPECIMENOrdering Facility: [facility] Address: [address] [place] [address] Performed By: #### 1 4979-9 ####[facility] LABORATORYCLIA [id number] [address] [place] Bacteria CSF Culton 07-20-19 22 Bacteria identified Cx Nom (CSF) CULTURE, CSF: No growth 14 days GRAM STAIN: No organisms seen No Polymorphonuclear Leukocytes Rare Mononuclear cells Gram stain performed on cytospun specimen. Normal [facility] Comment on above: Performed By: #### 6 06-4 ####[facility] LABORATORYCLIA [id number] [place] [address] [place] CONSULT PROGon 07-19-2021 CONSULT PROG Normal [facility] CSF MANUAL DIFFon 07-19-2021 DIF TTL, CSF 100 cells counted Normal [facility] Comment on above: Order Comment: Speci men Type: CEREBROSPINAL FLUIDOrdering Facility: [facility] Address: [address] [place] [address] Performed By: #### L [id number], 16331-2, [id number] ####[facility] LABORATORYCLIA [id number] [place] [address] [place] EOSIN%, CSF 1 % Normal [facility] Comment on above: Order Comment: Speci men Type: CEREBROSPINAL FLUIDOrdering Facility: [facility] Address: [address] [place] [address] Performed By: #### L OY1999, 54273-6, SMT8791 ####[facility] LABORATORYCLIA [id number] [place] [address] [place] LYMPH%, CSF 67 % Normal 50-90 [facility] Comment on above: Order Comment: Speci men Type: CEREBROSPINAL FLUIDOrdering Facility: [facility] Address: [address] [place] [address] Performed By: #### L [id number], 37356-2, [id number] ####[facility]ORATORYCLIA [id number] [place] [address] [place] MACRO%, CSF 1 % High <1 [facility] Comment on above: Order Comment: Speci men Type: CEREBROSPINAL FLUIDOrdering Facility: [facility] Address: [facility] [place] [address] Performed By: #### L MG4265, 47691-4, [id number] ####[facility]ORATORYCLIA [id number] [place] [address] [place] MONO%, CSF 18 % Normal 10-50 [facility] Comment on above: Order Comment: Speci men Type: CEREBROSPINAL FLUIDOrdering Facility: [facility] Address: [address] [place] [address] Performed By: #### L TQ6240, 94804-9, [id number] ####[facility]ORATORYCLIA [id number] [place] [address] [place] NEUT%, CSF 11 % High 0-3 [facility] Comment on above: Order Comment: Speci men Type: CEREBROSPINAL FLUIDOrdering Facility: [facility] Address: [address] [place] [address] Performed By: #### L QY2226, 81309-7, [id number] ####[facility] LABORATORYCLIA [id number] [address] OTHER CL%, CSF 2 % Normal [facility] Comment on above: Order Comment: Speci men Type: CEREBROSPINAL FLUIDOrdering Facility: [facility] Address: [address] [place] [address] Result Comment: Path review to follow. Performed By: #### L DQ1294, 43838-1, SAR4528 ####[facility]ORATORYCLIA [id number] [address] [place] CSF PATHOLOGIST INTERP (LAB REFLEX ORDER-NO BILL)on 07-19-2021 CSF STAFF REVIEW Normal [facility] Comment on above: Order Comment: Speci men Type: CEREBROSPINAL FLUIDOrdering Facility: [facility] Address: [address] [place] [address] Performed By: #### L TV8916, 63980-8, EST4034 ####[facility]ATORYCLIA [id number] [address] Pathologist name Reviewed by Wing Cummings MD [facility] Comment on above: Order Comment: Speci men Type: CEREBROSPINAL FLUIDOrdering Facility: [facility] Address: [address] [place] [address] Performed By: #### L [id number], 43822-2, [id number] ####[facility] LABORATORYCLIA [id number] [address] Cell count panel (CSF)on Clarity (CSF) Clear Normal Clear [facility] Comment on above: Order Comment: Speci men Type: CEREBROSPINAL FLUIDOrdering Facility: [facility] Address: [address] [place] [address] Performed By: #### L GC2173, 68960-1, KFK3270 ####[facility]ATORYCLIA [id number] [address] Clarity (Unsp spec) Not Indicated Normal Clear [facility] Comment on above: Order Comment: Speci men Type: CEREBROSPINAL FLUIDOrdering Facility: [facility] Address: [address] [place] [address] Performed By: #### L TR6572, 20196-6, VBW5005 ####[facility] LABORATORYCLIA [id number] [address] Color (CSF) Colorless Normal Colorless [facility] Comment on above: Order Comment: Speci men Type: CEREBROSPINAL FLUIDOrdering Facility: [facility] Address: [address] [place] [address] Performed By: #### L ES4629, 65007-0, IHT6966 ####[facility]ATORYCLIA [id number] [address] Color (Spun CSF) Not Indicated Normal Colorless [facility] Comment on above: Order Comment: Speci men Type: CEREBROSPINAL FLUIDOrdering Facility: [facility] Address: [address] [place] [address] Performed By: #### L FS0756, 36126-5, [id number] ####[facility]ORATORYCLIA [id number] [address] CSF TUBE [employer] Normal [facility] Comment on above: Order Comment: [facility] Type: CEREBROSPINAL FLUIDOrdering Facility: [facility] Address: [address] [place] [address] Performed By: #### L CS4251, 07473-1, [id number] ####[facility] LABORATORYCLIA [id number] [address] [facility] RBC Manual cnt (CSF) [#/Vol] 0 cells/uL Normal 0-5 [facility] Comment on above: Order Comment: [facility] Type: CEREBROSPINAL FLUIDOrdering Facility: [facility] Address: [address] [place] [address] Performed By: #### L EA7682, 22170-9, [id number] ####[facility] LABORATORYCLIA [id number] [address] WBC Manual cnt (CSF) [#/Vol] 2 cells/uL Normal 0-5 [facility] Comment on above: Order Comment: [facility] Type: CEREBROSPINAL FLUIDOrdering Facility: [facility] Address: [address] [place] [address] Performed By: #### L QJ4641, 98701-1, [id number] ####[facility] LABORATORYCLIA [id number] [address] [place] Glucose CSF-mCncon 2 Glucose (CSF) [Mass/Vol] 69 mg/dL Normal 40-70 [facility] Comment on above: Order [facility]: [facility] Type: CEREBROSPINAL FLUIDOrdering Facility: [facility] Address: [address] [place] [address] Result Comment: Lumb ar CSF glucose values of healthy patients are approximately 60% of the plasma values and must always be compared with a concurrently measured plasma value for adequate clinical interpretation.References: 1. Glucose HK (GLUC3) [package insert V 12.0 American]. [employer], [place], [place]. September 2015. 2. Michelle Moore, Loki, H. (2015). Chapter 7: Glucose and Lactate. F. Deisenhammer et al.(eds.), Cerebrospinal Fluid in Clinical Neurology. [place]: [employer]. Performed By: #### 2 342-4, 2880-3 ####[facility] LABORATORYCLIA [id number] [address] [facility] NURSING PROGon 07-19-2021 NURSING PROG Normal [facility] NURSING PROG Normal [facility] Prot CSF-mCncon 07-19-2021 Protein (CSF) [Mass/Vol] 51 mg/dL High 15 [facility] Comment on above: Order Comment: Speci men Type: CEREBROSPINAL FLUIDOrdering Facility: [facility] Address: [address] [place] [address] Performed By: #### 2 342-4, 2880-3 ####[facility] LABORATORYCLIA [id number] [address] THERAPY NTon 07-19-2021 THERAPY NT Normal [facility] Urinalysis complete panel (U )on 07-19-2021 Bilirubin Ql (U) Negative Normal Negative [facility] Comment on above: Order Comment: Speci men Type: URINE SPECIMENOrdering Facility: [facility] Address: [address] [place] [address] Performed By: #### 2 4356-8 ####[facility] LABORATORYCLIA [id number] [address] Clarity (Unsp spec) Clear Normal Clear [facility] Comment on above: Order Comment: Speci men Type: URINE SPECIMENOrdering Facility: [facility] Address: [address] [place] [address] Performed By: #### 2 4356-8 ####[facility] LABORATORYCLIA [id number] [address] Color (U) Colorless Normal yellow [facility] Comment on above: Order Comment: Speci men Type: URINE SPECIMENOrdering Facility: [facility] Address: [address] [place] [address] Performed By: #### 2 4356-8 ####[facility] LABORATORYCLIA [id number] [address] Glucose Test strip (U) [Mass/Vol] Negative Normal Negative [facility] Comment on above: Order Comment: Speci men Type: URINE SPECIMENOrdering Facility: [facility] Address: [address] [place] [address] Performed By: #### 2 4356-8 ####[facility] LABORATORYCLIA [id number] [address] Hemoglobin Ql (U) Trace Abnormal Negative [facility] Comment on above: Order Comment: Speci men Type: URINE SPECIMENOrdering Facility: [facility] Address: [address] [place] [address] Performed By: #### 2 4356-8 ####[facility] LABORATORYCLIA [id number] [address] Hyaline casts (Urine sed) [#/Area] 1-3 /LPF Abnormal 0 /LPF [facility] Comment on above: Order Comment: Speci men Type: URINE SPECIMENOrdering Facility: [facility] Address: [address] [place] [address] Performed By: #### 2 4356-8 ####[facility] LABORATORYCLIA [id number] [address] Ketones Ql (U) Negative Normal Negative [facility] Comment on above: Order Comment: Speci men Type: URINE SPECIMENOrdering Facility: [facility] Address: [address] [place] [address] Performed By: #### 2 4356-8 ####[facility] LABORATORYCLIA [id number] [address] Leukocyte esterase Test strip Ql (U) Negative Normal Negative [facility] Comment on above: Order Comment: Speci men Type: URINE SPECIMENOrdering Facility: [facility] Address: [address] [place] [address] Performed By: #### 2 4356-8 ####[facility] LABORATORYCLIA [id number] [address] [place] Nitrite Ql (U) Negative Normal Negative [facility] Comment on above: Order Comment: Speci men Type: URINE SPECIMENOrdering Facility: [facility] Address: [address] [place] [address] Performed By: #### 2 4356-8 ####[facility] LABORATORYCLIA [id number] [address] [place] pH (U) 7.0 [pH] Normal 5.0-8.0 [facility] Comment on above: Order Comment: Speci men Type: URINE SPECIMENOrdering Facility: [facility] Address: [address] [place] [address] Performed By: #### 2 4356-8 ####[facility]MELCLIA [id number] [address] Protein (U) [Mass/Vol] Negative Normal Negative [facility] Comment on above: Order Comment: Speci men Type: URINE SPECIMENOrdering Facility: [facility] [facility] Address: [address] [place] [address] Performed By: #### 2 4356-8 ####[facility] LABORATORYCLIA [id number] [address] RBC LM.HPF (Urine sed) [#/Area] 6-10 /HPF Abnormal 0-3 /HPF [facility] Comment on above: Order Comment: Speci men Type: URINE SPECIMENOrdering Facility: [facility] Address: [address] [place] [address] Performed By: #### 2 4356-8 ####[facility] LABORATORYCLIA [id number] [address] Specific gravity (U) [Rel density] 1.008 Normal 1.005-1.030 [facility] Comment on above: Order Comment: Speci men Type: URINE SPECIMENOrdering Facility: [facility] Address: [address] [place] [address] Performed By: #### 2 4356-8 ####[facility] LABORATORYCLIA [id number] [address] Urobilinogen Ql (U) Normal Normal Negative [facility] Comment on above: Order Comment: Speci men Type: URINE SPECIMENOrdering Facility: [facility] Address: [address] [place] [address] Performed By: #### 2 4356-8 ####[facility] LABORATORYCLIA [id number] [address] WBC LM.HPF (Urine sed) [#/Area] 0-5 /HPF Normal 0-5 /HPF [facility] Comment on above: Order Comment: Speci men Type: URINE SPECIMENOrdering Facility: [facility] Address: [address] [place] [address] Performed By: #### 2 4356-8 ####[facility] [id number] [address] Vancomycin random [Mass/Vol] on 07-19-2021 Vancomycin [Mass/Vol] 13.9 ug/mL Normal 10.0-20.0 [facility] Comment on above: Order Comment: Speci men Type: BLOOD SPECIMENOrdering Facility: [facility] Address: [address] [place] [address] Result Comment: Refe rence ranges and high/low indicator flags are provided as general guidelines only. The treating physician must determine appropriate target levels/dosing based on the specific clinical situation. Performed By: #### 4 091-5 ####[facility] LABORATORYCLIA [id number] [address] aPTT PPPon 07-19-2021 aPTT Coag (PPP) [Time] 53.9 s High 23.0-32.4 [facility] Comment on above: Order Comment: Speci men Type: BLOOD SPECIMENOrdering Facility: [facility] Address: [address] [place] [address] Performed By: #### 1 4979-9 ####[facility] LABORATORYCLIA [id number] [place] [address] [place] Basic metabolic 2000 panelon 07-18-2021 Anion gap [Moles/Vol] 6 mmol/L Low 9-18 [facility] Comment on above: Order Comment: Speci men Type: BLOOD SPECIMENOrdering Facility: [facility] Address: [address] [place] [address] Performed By: #### 2 4321-2, , 2776-05 ####[facility] LABORATORYCLIA [id number] [place] [address] [place] Calcium [Mass/Vol] 9.4 mg/dL Normal 8.5-10.2 [facility] Comment on above: Order Comment: Speci men Type: BLOOD SPECIMENOrdering Facility: [facility] Address: [address] [place] [address] Performed By: #### 2 4321-2, , 2776-05 ####[facility] LABORATORYCLIA [id number] [place] [address] [place] Chloride [Moles/Vol] 103 mmol/L Normal 97-105 [facility] Comment on above: Order Comment: Speci men Type: BLOOD SPECIMENOrdering Facility: [facility] Address: [address] [place] [address] Performed By: #### 2 4321-2, , 2776-05 ####[facility] LABORATORYCLIA [id number] [place] [id number] [place] CO2 [Moles/Vol] 34 mmol/L High 22-30 [facility] Comment on above: Order Comment: Speci men Type: BLOOD SPECIMENOrdering Facility: [facility] Address: [address] [place] [address] Performed By: #### 2 4321-2, , 2776- ####[facility] LABORATORYCLIA [id number] [place] [address] [place] Creatinine [Mass/Vol] 0.75 mg/dL Normal 0.73-1.22 [facility] Comment on above: Order Comment: Shira feldman Type: BLOOD SPECIMENOrdering Facility: [facility] Address: [address] [place], [place] [address] Performed By: #### 2 4321-2, 67527-9, 2776-05 ####[facility] LABORATORYCLIA [id number] [place] [id number] [facility] ESTIMATED GLOMERULAR FILTRATION RATE 98 mL/min/1.73m??? Normal >=60 [facility] Comment on above: Order Comment: Shira feldman Type: BLOOD SPECIMENOrdering Facility: [facility] Address: [address] [place], [place] [address] Result Comment: Luzmaria mated Glomerular Filtration Rate [...] Performed By: #### 2 4321-2, , 2776-05 ####[facility] LABORATORYCLIA [id number] [place] [id number] [place] Glucose [Mass/Vol] 125 mg/dL High 74-99 [facility] Comment on above: Order Comment: Shira feldman Type: BLOOD SPECIMENOrdering Facility: [facility] Address: [address] Result Comment: The [place] Diabetes Association (ADA) provides guidance for cutoff [...] Standards of Medical Care in Diabetes 2016, [place] Diabetes Association. Diabetes Care. 2016.39(Suppl 1). Performed By: #### 2 4321-2, , 2776-05 ####[facility] LABORATORYCLIA [id number] [address] STATES [facility] Potassium [Moles/Vol] 4.4 mmol/L Normal 3.7-5.1 [facility] Comment on above: Order Comment: Speci men Type: BLOOD SPECIMENOrdering Facility: [facility] Address: [address] [place] [address] Performed By: #### 2 4321-2, , 2776-05 ####[facility] LABORATORYCLIA [id number] [address] STATES [facility] Sodium [Moles/Vol] 143 mmol/L Normal 136-144 [facility] Comment on above: Order Comment: Speci men Type: BLOOD SPECIMENOrdering Facility: [facility] Address: [address] [place] [address] Performed By: #### 2 4321-2, , 2776-05 ####[facility] LABORATORYCLIA [id number] [address] [place] Urea nitrogen [Mass/Vol] 33 mg/dL High 9-24 [facility] Comment on above: Order Comment: Speci men Type: BLOOD SPECIMENOrdering Facility: [facility] Address: [address] [place] [address] Performed By: #### 2 4321-2, , 2776-05 ####[facility] LABORATORYCLIA [id number] [address] [place] CASE MANAGEMon 07-18-2021 CASE MANAGEM Normal [facility] CBC W Auto Differential pane l (Bld)on 07-18-2021 Basophils (Bld) [#/Vol] 0.05 10*3/uL Normal <0.11 [facility] Comment on above: Order Comment: Speci men Type: BLOOD SPECIMENOrdering Facility: [facility] Address: [address] [place] [address] Performed By: #### 5 7021-8 ####[facility]ATORYCLIA [id number] [address] Basophils/100 WBC (Bld) 0.5 % Normal [facility] Comment on above: Order Comment: Speci men Type: BLOOD SPECIMENOrdering Facility: [facility] Address: [address] [place] [address] Performed By: #### 5 7021-8 ####[facility] LABORATORYCLIA [id number] [address] Differential cell count method Nom (Bld) Auto Normal [facility] Comment on above: Order Comment: Speci men Type: BLOOD SPECIMENOrdering Facility: [facility] Address: [address] [place] [address] Performed By: #### 5 7021-8 ####[facility]ATORYCLIA [id number] [address] [place] Eosinophils (Bld) [#/Vol] 0.44 10*3/uL Normal <0.46 [facility] Comment on above: Order Comment: Speci men Type: BLOOD SPECIMENOrdering Facility: [facility] Address: [address] [place] [address] Performed By: #### 5 7021-8 ####[facility]ATORYCLIA [id number] [address] Eosinophils/100 WBC (Bld) 4.3 % Normal [facility] Comment on above: Order Comment: Speci men Type: BLOOD SPECIMENOrdering Facility: [facility] Address: [address] [place] [address] Performed By: #### 5 7021-8 ####[facility]ORATORYCLIA [id number] [address] [place] Erythrocyte distribution width (RBC) [Ratio] 16.6 % High 11.5-15.0 [facility] Comment on above: Order Comment: Speci men Type: BLOOD SPECIMENOrdering Facility: [facility] Address: [address] [place] [address] Performed By: #### 5 7021-8 ####[facility] LABORATORYCLIA [id number] [address] Hematocrit (Bld) [Volume fraction] 32.2 % Low 39.0-51.0 [facility] Comment on above: Order Comment: Speci men Type: BLOOD SPECIMENOrdering Facility: [facility] Address: [address] [place] [address] Performed By: #### 5 7021-8 ####[facility] LABORATORYCLIA [id number] [address] Hemoglobin (Bld) [Mass/Vol] 9.5 g/dL Low 13.0-17.0 [facility] Comment on above: Order Comment: Speci men Type: BLOOD SPECIMENOrdering Facility: [facility] Address: [address] [place] [address] Performed By: #### 5 7021-8 ####[facility] LABORATORYCLIA [id number] [address] IMMATURE GRAN % 0.4 % Normal [facility] Comment on above: Order Comment: Speci men Type: BLOOD SPECIMENOrdering Facility: [facility] Address: [address] [place] [address] Performed By: #### 5 7021-8 ####[facility] LABORATORYCLIA [id number] [address] IMMATURE GRAN ABS 0.04 k/uL Normal <0.10 [facility] Comment on above: Order Comment: Speci men Type: BLOOD SPECIMENOrdering Facility: [facility] Address: [address] [place] [address] Performed By: #### 5 7021-8 ####[facility] LABORATORYCLIA [id number] [address] Lymphocytes (Bld) [#/Vol] 1.71 10*3/uL Normal 1.00-4.00 [facility] Comment on above: Order Comment: Speci men Type: BLOOD SPECIMENOrdering Facility: [facility] Address: [address] [place] [address] Performed By: #### 5 7021-8 ####[facility] LABORATORYCLIA [id number] [address] [facility] Lymphocytes/100 WBC (Bld) 16.9 % Normal [facility] Comment on above: Order Comment: Speci men Type: BLOOD SPECIMENOrdering Facility: [facility] Address: [address] [place] [address] Performed By: #### 5 7021-8 ####[facility] LABORATORYCLIA [id number] [address] [place] MCH (RBC) [Entitic mass] 27.9 pg Normal 26.0-34.0 [facility] Comment on above: Order Comment: Speci men Type: BLOOD SPECIMENOrdering Facility: [facility] Address: [address] [place] [address] Performed By: #### 5 7021-8 ####[facility] LABORATORYCLIA [id number] [address] [place] MCHC (RBC) [Mass/Vol] 29.5 g/dL Low 30.5-36.0 [facility] Comment on above: Order Comment: Speci men Type: BLOOD SPECIMENOrdering Facility: [facility] Address: [address] [place] [address] Performed By: #### 5 7021-8 ####[facility] LABORATORYCLIA [id number] [address] STATES [facility] MCV (RBC) [Entitic vol] 94.7 fL Normal 80.0-100.0 [facility] Comment on above: Order Comment: Speci men Type: BLOOD SPECIMENOrdering Facility: [facility] Address: [address] [place] [address] Performed By: #### 5 7021-8 ####[facility] LABORATORYCLIA [id number] [address] [place] Monocytes (Bld) [#/Vol] 0.69 10*3/uL Normal <0.87 [facility] Comment on above: Order Comment: Speci men Type: BLOOD SPECIMENOrdering Facility: [facility] Address: [address] [place] [address] Performed By: #### 5 7021-8 ####[facility]ATORYCLIA [id number] [address] [place] Monocytes/100 WBC (Bld) 6.8 % Normal [facility] Comment on above: Order Comment: Speci men Type: BLOOD SPECIMENOrdering Facility: [facility] Address: [address] [place] [address] Performed By: #### 5 7021-8 ####[facility] LABORATORYCLIA [id number] [address] [place] Neutrophils (Bld) [#/Vol] 7.19 10*3/uL Normal 1.45-7.50 [facility] Comment on above: Order Comment: Speci men Type: BLOOD SPECIMENOrdering Facility: [facility] Address: [address] [place] [address] Performed By: #### 5 7021-8 ####[facility]ATORYCLIA [id number] [address] [place] Neutrophils/100 WBC (Bld) 71.1 % Normal [facility] Comment on above: Order Comment: Speci men Type: BLOOD SPECIMENOrdering Facility: [facility] Address: [address] [place] [address] Performed By: #### 5 7021-8 ####[facility]ORATORYCLIA [id number] [place] [address] [place] Nucleated RBC (Bld) [#/Vol] 10*3/uL Normal <0.01 [facility] Comment on above: Order Comment: Speci men Type: BLOOD SPECIMENOrdering Facility: [facility] Address: [address] [place] [address] Performed By: #### 5 7021-8 ####[facility] LABORATORYCLIA [id number] [address] [place] Nucleated RBC/100 WBC (Bld) [Ratio] 0.0 /100 WBC Normal [facility] Comment on above: Order Comment: Speci men Type: BLOOD SPECIMENOrdering Facility: [facility] Address: [address] [place], [place] [address] Performed By: #### 5 7021-8 ####[facility] LABORATORYCLIA [id number] [place] [address] [place] Platelet mean volume (Bld) [Entitic vol] 10.3 fL Normal 9.0-12.7 [facility] Comment on above: Order Comment: Speci men Type: BLOOD SPECIMENOrdering Facility: [facility] Address: [address] [place] [address] Performed By: #### 5 7021-8 ####[facility] LABORATORYCLIA [id number] [address] [place] Platelets (Bld) [#/Vol] 403 10*3/uL High 150-400 [facility] Comment on above: Order Comment: Speci men Type: BLOOD SPECIMENOrdering Facility: [facility] Address: [address] Performed By: #### 5 7021-8 ####[facility] LABORATORYCLIA [id number] [address] [place] RBC (Bld) [#/Vol] 3.40 10*6/uL Low 4.20-6.00 [facility] Comment on above: Order Comment: Speci men Type: BLOOD SPECIMENOrdering Facility: [facility] Address: [address] [place] [address] Performed By: #### 5 7021-8 ####[facility]ATORYCLIA [id number] [address] [facility] WBC (Bld) [#/Vol] 10.12 10*3/uL Normal 3.70-11.00 [facility] Comment on above: Order Comment: Speci men Type: BLOOD SPECIMENOrdering Facility: [facility] Address: [address] [place] [address] Performed By: #### 5 7021-8 ####[facility] LABORATORYCLIA [id number] [address] [place] Magnesium SerPl-mCncon 07-18 Magnesium [Mass/Vol] 2.4 mg/dL High 1.7-2.3 [facility] Comment on above: Order Comment: Speci men Type: BLOOD SPECIMENOrdering Facility: [facility] Address: [address] [place] [address] Performed By: #### 2 4321-2, 52600-8, 2777-1 ####[facility] LABORATORYCLIA [id number] [address] [facility] NURSING PROGon 07-18-2021 NURSING PROG Normal [facility] NURSING PROG Normal [facility] Phosphate SerPl-mCncon 07-18 Phosphate [Mass/Vol] 3.9 mg/dL Normal 2.7-4.8 [facility] Comment on above: Order Comment: Speci men Type: BLOOD SPECIMENOrdering Facility: [facility] Address: [address] [place] [address] Performed By: #### 2 4321-2, 78848-2, 2777-1 ####[facility] LABORATORYCLIA [id number] [address] [facility] THERAPY NTon 07-18-2021 THERAPY NT Normal [facility] aPTT PPPon 07-18-2021 aPTT Coag (PPP) [Time] 52.3 s High 23.0-32.4 [facility] Comment on above: Order Comment: Speci men Type: BLOOD SPECIMENOrdering Facility: [facility] Address: [address] [place] [address] Performed By: #### 1 4979-9 ####[facility] LABORATORYCLIA [id number] [address] CBC W Auto Differential pane l (Bld)on 07-17-2021 Basophils (Bld) [#/Vol] 0.05 10*3/uL Normal <0.11 [facility] Comment on above: Order Comment: Speci men Type: BLOOD SPECIMENOrdering Facility: [facility] Address: [address] [place] [address] Performed By: #### 5 7021-8 ####[facility] LABORATORYCLIA [id number] [address] Basophils/100 WBC (Bld) 0.5 % Normal [facility] Comment on above: Order Comment: Speci men Type: BLOOD SPECIMENOrdering Facility: [facility] Address: [address] [place] [address] Performed By: #### 5 7021-8 ####[facility] LABORATORYCLIA [id number] [address] Differential cell count method Nom (Bld) Auto Normal [facility] Comment on above: Order Comment: Speci men Type: BLOOD SPECIMENOrdering Facility: [facility] Address: [address] [place] [address] Performed By: #### 5 7021-8 ####[facility] LABORATORYCLIA [id number] [address] Eosinophils (Bld) [#/Vol] 0.32 10*3/uL Normal <0.46 [facility] Comment on above: Order Comment: Speci men Type: BLOOD SPECIMENOrdering Facility: [facility] Address: [address] [place] [address] Performed By: #### 5 7021-8 ####[facility] LABORATORYCLIA [id number] [address] Eosinophils/100 WBC (Bld) 3.4 % Normal [facility] Comment on above: Order Comment: Speci men Type: BLOOD SPECIMENOrdering Facility: [facility] Address: [address] [place] [address] Performed By: #### 5 7021-8 ####[facility] LABORATORYCLIA [id number] [address] Erythrocyte distribution width (RBC) [Ratio] 16.6 % High 11.5-15.0 [facility] Comment on above: Order Comment: Speci men Type: BLOOD SPECIMENOrdering Facility: [facility] Address: [address] [place] [address] Performed By: #### 5 7021-8 ####[facility] LABORATORYCLIA [id number] [address] Hematocrit (Bld) [Volume fraction] 30.7 % Low 39.0-51.0 [facility] Comment on above: Order Comment: Speci men Type: BLOOD SPECIMENOrdering Facility: [facility] Address: [address] [place] [address] Performed By: #### 5 7021-8 ####[facility] LABORATORYCLIA [id number] [address] [facility] Hemoglobin (Bld) [Mass/Vol] 9.0 g/dL Low 13.0-17.0 [facility] Comment on above: Order Comment: Speci men Type: BLOOD SPECIMENOrdering Facility: [facility] Address: [address] [place] [address] Performed By: #### 5 7021-8 ####[facility] LABORATORYCLIA [id number] [address] IMMATURE GRAN % 0.6 % Normal [facility] Comment on above: Order Comment: Speci men Type: BLOOD SPECIMENOrdering Facility: [facility] Address: [address] [place] [address] Performed By: #### 5 7021-8 ####[facility] LABORATORYCLIA [id number] [address] IMMATURE GRAN ABS 0.06 k/uL Normal <0.10 [facility] Comment on above: Order Comment: Speci men Type: BLOOD SPECIMENOrdering Facility: [facility] Address: [address] [place] [address] Performed By: #### 5 7021-8 ####[facility] LABORATORYCLIA [id number] [address] Lymphocytes (Bld) [#/Vol] 1.61 10*3/uL Normal 1.00-4.00 [facility] Comment on above: Order Comment: Speci men Type: BLOOD SPECIMENOrdering Facility: [facility] Address: [address] [place] [address] Performed By: #### 5 7021-8 ####[facility] LABORATORYCLIA [id number] [address] Lymphocytes/100 WBC (Bld) 17.3 % Normal [facility] Comment on above: Order Comment: Speci men Type: BLOOD SPECIMENOrdering Facility: [facility] Address: [address] [place] [address] Performed By: #### 5 7021-8 ####[facility] LABORATORYCLIA [id number] [address] MCH (RBC) [Entitic mass] 26.9 pg Normal 26.0-34.0 [facility] Comment on above: Order Comment: Speci men Type: BLOOD SPECIMENOrdering Facility: [facility] Address: [address] [place] [address] Performed By: #### 5 7021-8 ####[facility] LABORATORYCLIA [id number] [address] MCHC (RBC) [Mass/Vol] 29.3 g/dL Low 30.5-36.0 [facility] Comment on above: Order Comment: Speci men Type: BLOOD SPECIMENOrdering Facility: [facility] Address: [address] [place] [address] Performed By: #### 5 7021-8 ####[facility]ATORYCLIA [id number] [place] [address] [place] MCV (RBC) [Entitic vol] 91.9 fL Normal 80.0-100.0 [facility] Comment on above: Order Comment: Speci men Type: BLOOD SPECIMENOrdering Facility: [facility] Address: [address] [place] [address] Performed By: #### 5 7021-8 ####[facility]ORYCLIA [id number] [address] [place] Monocytes (Bld) [#/Vol] 0.61 10*3/uL Normal <0.87 [facility] Comment on above: Order Comment: Speci men Type: BLOOD SPECIMENOrdering Facility: [facility] Address: [address] [place] [address] Performed By: #### 5 7021-8 ####[facility] LABORATORYCLIA [id number] [address] [place] Monocytes/100 WBC (Bld) 6.6 % Normal [facility] Comment on above: Order Comment: Speci men Type: BLOOD SPECIMENOrdering Facility: [facility] Address: [address] [place] [address] Performed By: #### 5 7021-8 ####[facility] LABORATORYCLIA [id number] [address] [place] Neutrophils (Bld) [#/Vol] 6.64 10*3/uL Normal 1.45-7.50 [facility] Comment on above: Order Comment: Speci men Type: BLOOD SPECIMENOrdering Facility: [facility] Address: [address] [place] [address] Performed By: #### 5 7021-8 ####[facility] LABORATORYCLIA [id number] [address] [place] Neutrophils/100 WBC (Bld) 71.6 % Normal [facility] Comment on above: Order Comment: Speci men Type: BLOOD SPECIMENOrdering Facility: [facility] Address: [address] Performed By: #### 5 7021-8 ####[facility] LABORATORYCLIA [id number] [address] Nucleated RBC (Bld) [#/Vol] 10*3/uL Normal <0.01 [facility] Comment on above: Order Comment: Speci men Type: BLOOD SPECIMENOrdering Facility: [facility] Address: [address] Performed By: #### 5 7021-8 ####[facility] LABORATORYCLIA [id number] [address] [place] Nucleated RBC/100 WBC (Bld) [Ratio] 0.0 /100 WBC Normal [facility] Comment on above: Order Comment: Speci men Type: BLOOD SPECIMENOrdering Facility: [facility] Address: [address] Performed By: #### 5 7021-8 ####[facility] LABORATORYCLIA [id number] [address] [place] Platelet mean volume (Bld) [Entitic vol] 10.1 fL Normal 9.0-12.7 [facility] Comment on above: Order Comment: Speci men Type: BLOOD SPECIMENOrdering Facility: [facility] Address: [address] Performed By: #### 5 7021-8 ####[facility] LABORATORYCLIA [id number] [address] [place] Platelets (Bld) [#/Vol] 387 10*3/uL Normal 150-400 [facility] Comment on above: Order Comment: Speci men Type: BLOOD SPECIMENOrdering Facility: [facility] Address: [address] [place], [place] [address] Performed By: #### 5 7021-8 ####[facility] LABORATORYCLIA [id number] [address] [place] RBC (Bld) [#/Vol] 3.34 10*6/uL Low 4.20-6.00 [facility] Comment on above: Order Comment: Speci men Type: BLOOD SPECIMENOrdering Facility: [facility] Address: [address] [place] [address] Performed By: #### 5 7021-8 ####[facility] LABORATORYCLIA [id number] [address] [place] WBC (Bld) [#/Vol] 9.29 10*3/uL Normal 3.70-11.00 [facility] Comment on above: Order Comment: Speci men Type: BLOOD SPECIMENOrdering Facility: [facility] Address: [address] [place] [address] Performed By: #### 5 7021-8 ####[facility] LABORATORYCLIA [id number] [address] CONSULT PROGon 07-17-2021 CONSULT PROG Normal [facility] Magnesium SerPl-mCncon 07-17 Magnesium [Mass/Vol] 2.3 mg/dL Normal 1.7-2.3 [facility] Comment on above: Order Comment: Speci men Type: BLOOD SPECIMENOrdering Facility: [facility] Address: [address] [place] [address] Performed By: #### 2 777-1, 50713-1 ####[facility] LABORATORYCLIA [id number] [address] [place] NURSING PROGon 07-17-2021 NURSING PROG Normal [facility] NURSING PROG Normal [facility] NURSING PROG Normal [facility] Phosphate SerPl-mCncon 07-17 Phosphate [Mass/Vol] 3.6 mg/dL Normal 2.7-4.8 [facility] Comment on above: Order Comment: Speci men Type: BLOOD SPECIMENOrdering Facility: [facility] Address: [address] [place] [address] Performed By: #### 2 777-1, ####[facility] LABORATORYCLIA [id number] [address] [place] aPTT PPPon 07-17-2021 aPTT Coag (PPP) [Time] 57.2 s High 23.0-32.4 [facility] Comment on above: Order Comment: Speci men Type: BLOOD SPECIMENOrdering Facility: [facility] Address: [address] [place] [address] Performed By: #### 1 4979-9 ####[facility] LABORATORYCLIA [id number] [place] [address] [place] Basic metabolic 2000 panelon 07-16-2021 Anion gap [Moles/Vol] 5 mmol/L Low 9-18 [facility] Comment on above: Order Comment: Speci men Type: BLOOD SPECIMENOrdering Facility: [facility] Address: [address] [place] [address] Performed By: #### 2 777-1, , ####[facility] CARMELCLIA [id number] [place] [address] [place] Calcium [Mass/Vol] 9.1 mg/dL Normal 8.5-10.2 [facility] Comment on above: Order Comment: Speci men Type: BLOOD SPECIMENOrdering Facility: [facility] Address: [address] [place], [place] [address] Performed By: #### 2 777-1, , ####[facility] LABORATORYCLIA [id number] [place], [place] [address] [place] [address] [place] Chloride [Moles/Vol] 101 mmol/L Normal 97-105 [facility] Comment on above: Order Comment: Speci men Type: BLOOD SPECIMENOrdering Facility: [facility] Address: [address] [place], [place] [address] Performed By: #### 2 777-1, 20741-4, ####[facility] LABORATORYCLIA [id number] [address] [facility] CO2 [Moles/Vol] 35 mmol/L High 22-30 [facility] Comment on above: Order Comment: Speci men Type: BLOOD SPECIMENOrdering Facility: [facility] Address: [address] [place] [address] Performed By: #### 2 777-1, 73802-0, ####[facility] CARMELCLIA [id number] [address] Creatinine [Mass/Vol] 0.73 mg/dL Normal 0.73-1.22 [facility] Comment on above: Order Comment: Speci men Type: BLOOD SPECIMENOrdering Facility: [facility] Address: [address] [place] [address] Performed By: #### 2 777-1, 81061-2, ####[facility]ITALIA [id number] [address] ESTIMATED GLOMERULAR FILTRATION RATE 98 mL/min/1.73m??? Normal >=60 [facility] Comment on above: Order Comment: Speci men Type: BLOOD SPECIMENOrdering Facility: [facility] Address: [address] [place] [address] Result Comment: Luzmaria mated Glomerular Filtration Rate [...] actual GFR. Performed By: #### 2 777-1, 39226-6, ####[facility] LABORATORYCLIA [id number] [address] [place] Glucose [Mass/Vol] 133 mg/dL High 74-99 [facility] Comment on above: Order Comment: Speci men Type: BLOOD SPECIMENOrdering Facility: [facility] Address: [address] [place] [address] Result Comment: The [place] Diabetes Association (ADA) provides guidance for cutoff [...] Standards of Medical Care in Diabetes 2016, [place] Diabetes Association. Diabetes Care. 2016.39(Suppl 1). Performed By: #### 2 777-1, , ####[facility] LABORATORYCLIA [id number] [place] [address] [place] Potassium [Moles/Vol] 4.2 mmol/L Normal 3.7-5.1 [facility] Comment on above: Order Comment: Speci men Type: BLOOD SPECIMENOrdering Facility: [facility] Address: [address] Performed By: #### 2 777-1, , ####[facility] LABORATORYCLIA [id number] [place] [address] [place] Sodium [Moles/Vol] 141 mmol/L Normal 136-144 [facility] Comment on above: Order Comment: Speci men Type: BLOOD SPECIMENOrdering Facility: [facility] Address: [address] [place] [place] [id number] Performed By: #### 2 777-1, , ####[facility] LABORATORYCLIA [id number] [place] [address] [place] Urea nitrogen [Mass/Vol] 21 mg/dL Normal 9-24 [facility] Comment on above: Order Comment: Speci men Type: BLOOD SPECIMENOrdering Facility: [facility] Address: [address] [id number] Performed By: #### 2 777-1, 99170-1, 29461-4 ####[facility] LABORATORYCLIA [id number] [address] STATES [facility] CBC W Auto Differential pane l (Bld)on 07-16-2021 Basophils (Bld) [#/Vol] 0.06 10*3/uL Normal <0.11 [facility] Comment on above: Order Comment: Speci men Type: BLOOD SPECIMENOrdering Facility: [facility] Address: [address] [place] [address] Performed By: #### 5 7021-8 ####[facility] LABORATORYCLIA [id number] [address] Basophils/100 WBC (Bld) 0.7 % Normal [facility] Comment on above: Order Comment: Speci men Type: BLOOD SPECIMENOrdering Facility: [facility] Address: [address] [place] [address] Performed By: #### 5 7021-8 ####[facility] LABORATORYCLIA [id number] [address] Differential cell count method Nom (Bld) Auto Normal [facility] Comment on above: Order Comment: Speci men Type: BLOOD SPECIMENOrdering Facility: [facility] Address: [address] [place] [address] Performed By: #### 5 7021-8 ####[facility] LABORATORYCLIA [id number] [address] Eosinophils (Bld) [#/Vol] 0.35 10*3/uL Normal <0.46 [facility] Comment on above: Order Comment: Speci men Type: BLOOD SPECIMENOrdering Facility: [facility] Address: [address] [place] [address] Performed By: #### 5 7021-8 ####[facility] LABORATORYCLIA [id number] [address] Eosinophils/100 WBC (Bld) 3.9 % Normal [facility] Comment on above: Order Comment: Speci men Type: BLOOD SPECIMENOrdering Facility: [facility] Address: [address] [place] [address] Performed By: #### 5 7021-8 ####[facility] LABORATORYCLIA [id number] [address] Erythrocyte distribution width (RBC) [Ratio] 16.5 % High 11.5-15.0 [facility] Comment on above: Order Comment: Speci men Type: BLOOD SPECIMENOrdering Facility: [facility] Address: [address] [place] [address] Performed By: #### 5 7021-8 ####[facility] LABORATORYCLIA [id number] [address] Hematocrit (Bld) [Volume fraction] 30.9 % Low 39.0-51.0 [facility] Comment on above: Order Comment: Speci men Type: BLOOD SPECIMENOrdering Facility: [facility] Address: [address] [place] [address] Performed By: #### 5 7021-8 ####[facility] LABORATORYCLIA [id number] [address] Hemoglobin (Bld) [Mass/Vol] 9.1 g/dL Low 13.0-17.0 [facility] Comment on above: Order Comment: Speci men Type: BLOOD SPECIMENOrdering Facility: [facility] Address: [address] [place] [address] Performed By: #### 5 7021-8 ####[facility] LABORATORYCLIA [id number] [address] IMMATURE GRAN % 0.4 % Normal [facility] Comment on above: Order Comment: Speci men Type: BLOOD SPECIMENOrdering Facility: [facility] Address: [address] [place] [address] Performed By: #### 5 7021-8 ####[facility] LABORATORYCLIA [id number] [address] IMMATURE GRAN ABS 0.04 k/uL Normal <0.10 [facility] Comment on above: Order Comment: Speci men Type: BLOOD SPECIMENOrdering Facility: [facility] Address: [address] [place] [address] Performed By: #### 5 7021-8 ####[facility] LABORATORYCLIA [id number] [address] Lymphocytes (Bld) [#/Vol] 1.35 10*3/uL Normal 1.00-4.00 [facility] Comment on above: Order Comment: Speci men Type: BLOOD SPECIMENOrdering Facility: [facility] Address: [address] [place] [address] Performed By: #### 5 7021-8 ####[facility] LABORATORYCLIA [id number] [address] Lymphocytes/100 WBC (Bld) 15.0 % Normal [facility] Comment on above: Order Comment: Speci men Type: BLOOD SPECIMENOrdering Facility: [facility] Address: [address] [place] [address] Performed By: #### 5 7021-8 ####[facility] LABORATORYCLIA [id number] [address] MCH (RBC) [Entitic mass] 27.1 pg Normal 26.0-34.0 [facility] Comment on above: Order Comment: Speci men Type: BLOOD SPECIMENOrdering Facility: [facility] Address: [address] [place] [address] Performed By: #### 5 7021-8 ####[facility] LABORATORYCLIA [id number] [address] MCHC (RBC) [Mass/Vol] 29.4 g/dL Low 30.5-36.0 [facility] Comment on above: Order Comment: Speci men Type: BLOOD SPECIMENOrdering Facility: [facility] Address: [address] [place] [address] Performed By: #### 5 7021-8 ####[facility] LABORATORYCLIA [id number] [address] [place] MCV (RBC) [Entitic vol] 92.0 fL Normal 80.0-100.0 [facility] Comment on above: Order Comment: Speci men Type: BLOOD SPECIMENOrdering Facility: [facility] Address: [address] [place] [address] Performed By: #### 5 7021-8 ####[facility] LABORATORYCLIA [id number] [address] [place] Monocytes (Bld) [#/Vol] 0.53 10*3/uL Normal <0.87 [facility] Comment on above: Order Comment: Speci men Type: BLOOD SPECIMENOrdering Facility: [facility] Address: [address] [place] [address] Performed By: #### 5 7021-8 ####[facility] LABORATORYCLIA [id number] [address] STATES [facility] Monocytes/100 WBC (Bld) 5.9 % Normal [facility] Comment on above: Order Comment: Speci men Type: BLOOD SPECIMENOrdering Facility: [facility] Address: [address] [place] [address] Performed By: #### 5 7021-8 ####[facility] LABORATORYCLIA [id number] [address] [place] Neutrophils (Bld) [#/Vol] 6.67 10*3/uL Normal 1.45-7.50 [facility] Comment on above: Order Comment: Speci men Type: BLOOD SPECIMENOrdering Facility: [facility] Address: [address] [place] [address] Performed By: #### 5 7021-8 ####[facility] LABORATORYCLIA [id number] [address] [place] Neutrophils/100 WBC (Bld) 74.1 % Normal [facility] Comment on above: Order Comment: Speci men Type: BLOOD SPECIMENOrdering Facility: [facility] Address: [address] Performed By: #### 5 7021-8 ####[facility] LABORATORYCLIA [id number] [address] [place] Nucleated RBC (Bld) [#/Vol] 10*3/uL Normal <0.01 [facility] Comment on above: Order Comment: Speci men Type: BLOOD SPECIMENOrdering Facility: [facility] Address: [address] [place], [place] [address] Performed By: #### 5 7021-8 ####[facility] LABORATORYCLIA [id number] [address] [place] Nucleated RBC/100 WBC (Bld) [Ratio] 0.0 /100 WBC Normal [facility] Comment on above: Order Comment: Speci men Type: BLOOD SPECIMENOrdering Facility: [facility] Address: [address] [place] [address] Performed By: #### 5 7021-8 ####[facility] LABORATORYCLIA [id number] [place] [address] [place] Platelet mean volume (Bld) [Entitic vol] 9.9 fL Normal 9.0-12.7 [facility] Comment on above: Order Comment: Speci men Type: BLOOD SPECIMENOrdering Facility: [facility] Address: [address] Performed By: #### 5 7021-8 ####[facility] LABORATORYCLIA [id number] [place] [address] [place] Platelets (Bld) [#/Vol] 391 10*3/uL Normal 150-400 [facility] Comment on above: Order Comment: Speci men Type: BLOOD SPECIMENOrdering Facility: [facility] Address: [address] [place] [address] Performed By: #### 5 7021-8 ####[facility] LABORATORYCLIA [id number] [address] [place] RBC (Bld) [#/Vol] 3.36 10*6/uL Low 4.20-6.00 [facility] Comment on above: Order Comment: Speci men Type: BLOOD SPECIMENOrdering Facility: [facility] Address: [address] [place] [address] Performed By: #### 5 7021-8 ####[facility] LABORATORYCLIA [id number] [address] [facility] WBC (Bld) [#/Vol] 9.00 10*3/uL Normal 3.70-11.00 [facility] Comment on above: Order Comment: Speci men Type: BLOOD SPECIMENOrdering Facility: [facility] Address: [address] [place] [address] Performed By: #### 5 7021-8 ####[facility] LABORATORYCLIA [id number] [address] CONSULT PROGon 07-16-2021 CONSULT PROG Normal [facility] CONSULT PROG Normal [facility] Magnesium SerPl-mCncon 07-16 Magnesium [Mass/Vol] 2.3 mg/dL Normal 1.7-2.3 [facility] Comment on above: Order Comment: Speci men Type: BLOOD SPECIMENOrdering Facility: [facility] Address: [address] [place] [address] Performed By: #### 2 777-1, 90770-9, 19691-7 ####[facility] LABORATORYCLIA [id number] [address] [place] NURSING PROGon 07-16-2021 NURSING PROG Normal [facility] Phosphate SerPl-mCncon 07-16 Phosphate [Mass/Vol] 3.6 mg/dL Normal 2.7-4.8 [facility] Comment on above: Order Comment: Speci men Type: BLOOD SPECIMENOrdering Facility: [facility] Address: [address] [place] [address] Performed By: #### 2 777-1, 80187-2, 21449-5 ####[facility] LABORATORYCLIA [id number] [address] OF [facility] Vancomycin random [Mass/Vol] on 07-16-2021 Vancomycin [Mass/Vol] 16.9 ug/mL Normal 10.0-20.0 [facility] Comment on above: Order Comment: Speci men Type: BLOOD SPECIMENOrdering Facility: [facility] Address: [address] [place] [address] Result Comment: Refe rence ranges and high/low indicator flags are provided as general guidelines only. The treating physician must determine appropriate target levels/dosing based on the specific clinical situation. Performed By: #### 4 091-5 ####[facility] LABORATORYCLIA [id number] [address] [place] aPTT PPPon 07-16-2021 aPTT Coag (PPP) [Time] 57.2 s High 23.0-32.4 [facility] Comment on above: Order Comment: Speci men Type: BLOOD SPECIMENOrdering Facility: [facility] Address: [address] [place] [address] Performed By: #### 1 4979-9 ####[facility] LABORATORYCLIA [id number] [address] [place] ALLIED HEALTHon 07-15-2021 ALLIED HEALTH Normal [facility] Basic metabolic 2000 panelon 07-15-2021 Anion gap [Moles/Vol] 11 mmol/L Normal 9-18 [facility] Comment on above: Order Comment: Speci men Type: BLOOD SPECIMENOrdering Facility: [facility] Address: [address] [place] [address] Performed By: #### 2 4321-2, 71216-1, 2777-1 ####[facility] LABORATORYCLIA [id number] [place] [address] [place] Calcium [Mass/Vol] 8.8 mg/dL Normal 8.5-10.2 [facility] Comment on above: Order Comment: Speci men Type: BLOOD SPECIMENOrdering Facility: [facility] Address: [address] [place] [address] Performed By: #### 2 4321-2, , 2776-05 ####[facility] LABORATORYCLIA [id number] [place] [address] [place] Chloride [Moles/Vol] 101 mmol/L Normal 97-105 [facility] Comment on above: Order Comment: Speci men Type: BLOOD SPECIMENOrdering Facility: [facility] Address: [address] [place] [address] Performed By: #### 2 4321-2, , 2776-05 ####[facility] LABORATORYCLIA [id number] [address] [place] CO2 [Moles/Vol] 31 mmol/L High 22-30 [facility] Comment on above: Order Comment: Speci men Type: BLOOD SPECIMENOrdering Facility: [facility] Address: [address] [place] [address] Performed By: #### 2 4321-2, , 2776-05 ####[facility] LABORATORYCLIA [id number] [address] [place] Creatinine [Mass/Vol] 0.76 mg/dL Normal 0.73-1.22 [facility] Comment on above: Order Comment: Speci men Type: BLOOD SPECIMENOrdering Facility: [facility] Address: [address] [place] [address] Performed By: #### 2 4321-2, , 2776-05 ####[facility] LABORATORYCLIA [id number] [address] ESTIMATED GLOMERULAR FILTRATION RATE 97 mL/min/1.73m??? Normal >=60 [facility] Comment on above: Order Comment: Speci men Type: BLOOD SPECIMENOrdering Facility: [facility] Address: [address] [place] [address] Result Comment: Luzmaria mated Glomerular Filtration Rate [...] Performed By: #### 2 4321-2, , 2776-05 ####[facility] LABORATORYCLIA [id number] [place] [address] [place] Glucose [Mass/Vol] 115 mg/dL High 74-99 [facility] Comment on above: Order Comment: Shira feldman Type: BLOOD SPECIMENOrdering Facility: [facility] Address: [address] [place] [address] Result Comment: The [place] Diabetes Association (ADA) provides guidance for cutoff [...] Standards of Medical Care in Diabetes 2016, [place] Diabetes [employer]. Diabetes Care. 2016.39(Suppl 1). Performed By: #### 2 4321-2, , 2776-05 ####[facility] LABORATORYCLIA [id number] [place] [address] [place] Potassium [Moles/Vol] 4.0 mmol/L Normal 3.7-5.1 [facility] Comment on above: Order Comment: Shira feldman Type: BLOOD SPECIMENOrdering Facility: [facility] Address: [address] [phone] Performed By: #### 2 4321-2, , 2776-05 ####[facility] LABORATORYCLIA [id number] [address] [place] OF [facility] Sodium [Moles/Vol] 143 mmol/L Normal 136-144 [facility] Comment on above: Order Comment: Speci men Type: BLOOD SPECIMENOrdering Facility: [facility] Address: [address] [place] [address] Performed By: #### 2 4321-2, 07949-5, 2777-1 ####[facility] LABORATORYCLIA [id number] [address] [place] [facility] Urea nitrogen [Mass/Vol] 17 mg/dL Normal 9-24 [facility] Comment on above: Order Comment: Speci men Type: BLOOD SPECIMENOrdering Facility: [facility] Address: [address] [place] [address] Performed By: #### 2 4321-2, , 2776-05 ####[facility] LABORATORYCLIA [id number] [address] CASE MANAGEMon 07-15-2021 CASE MANAGEM Normal [facility] CBC panel Auto (Bld)on 07-15 Erythrocyte distribution width (RBC) [Ratio] 16.4 % High 11.5-15.0 [facility] Comment on above: Order Comment: Speci men Type: BLOOD SPECIMENOrdering Facility: [facility] Address: [address] [place] [address] Performed By: #### 5 8410-2 ####[facility] LABORATORYCLIA [id number] [address] STATES [facility] Hematocrit (Bld) [Volume fraction] 30.3 % Low 39.0-51.0 [facility] Comment on above: Order Comment: Speci men Type: BLOOD SPECIMENOrdering Facility: [facility] Address: [address] [place] [address] Performed By: #### 5 8410-2 ####[facility] LABORATORYCLIA [id number] [address] [place] [facility] Hemoglobin (Bld) [Mass/Vol] 9.2 g/dL Low 13.0-17.0 [facility] Comment on above: Order Comment: Speci men Type: BLOOD SPECIMENOrdering Facility: [facility] Address: [address] [place] [address] Performed By: #### 5 8410-2 ####[facility] LABORATORYCLIA [id number] [address] STATES [facility] MCH (RBC) [Entitic mass] 28.3 pg Normal 26.0-34.0 [facility] Comment on above: Order Comment: Speci men Type: BLOOD SPECIMENOrdering Facility: [facility] Address: [address] [place] [address] Performed By: #### 5 8410-2 ####[facility] LABORATORYCLIA [id number] [address] MCHC (RBC) [Mass/Vol] 30.4 g/dL Low 30.5-36.0 [facility] Comment on above: Order Comment: Speci men Type: BLOOD SPECIMENOrdering Facility: [facility] Address: [address] [place] [address] Performed By: #### 5 8410-2 ####[facility] LABORATORYCLIA [id number] [address] MCV (RBC) [Entitic vol] 93.2 fL Normal 80.0-100.0 [facility] Comment on above: Order Comment: Speci men Type: BLOOD SPECIMENOrdering Facility: [facility] Address: [address] [place] [address] Performed By: #### 5 8410-2 ####[facility] LABORATORYCLIA [id number] [address] Nucleated RBC (Bld) [#/Vol] 10*3/uL Normal <0.01 [facility] Comment on above: Order Comment: Speci men Type: BLOOD SPECIMENOrdering Facility: [facility] Address: [address] [place] [address] Performed By: #### 5 8410-2 ####[facility] LABORATORYCLIA [id number] [address] STATES [place] Platelet mean volume (Bld) [Entitic vol] 9.9 fL Normal 9.0-12.7 [facility] Comment on above: Order Comment: Speci men Type: BLOOD SPECIMENOrdering Facility: [facility] Address: [address] [place] [address] Performed By: #### 5 8410-2 ####[facility] LABORATORYCLIA [id number] [address] [place] Platelets (Bld) [#/Vol] 381 10*3/uL Normal 150-400 [facility] Comment on above: Order Comment: Speci men Type: BLOOD SPECIMENOrdering Facility: [facility] Address: [address] [place] [address] Performed By: #### 5 8410-2 ####[facility] LABORATORYCLIA [id number] [address] [place] RBC (Bld) [#/Vol] 3.25 10*6/uL Low 4.20-6.00 [facility] Comment on above: Order Comment: Speci men Type: BLOOD SPECIMENOrdering Facility: [facility] Address: [address] [place] [address] Performed By: #### 5 8410-2 ####[facility] LABORATORYCLIA [id number] [address] [place] WBC (Bld) [#/Vol] 8.80 10*3/uL Normal 3.70-11.00 [facility] Comment on above: Order Comment: Speci men Type: BLOOD SPECIMENOrdering Facility: [facility] Address: [address] [place] [address] Performed By: #### 5 8410-2 ####[facility] LABORATORYCLIA [id number] [address] [place] Magnesium SerPl-mCncon 07-15 Magnesium [Mass/Vol] 2.2 mg/dL Normal 1.7-2.3 [facility] Comment on above: Order Comment: Speci men Type: BLOOD SPECIMENOrdering Facility: [facility] Address: [facility] [place] [address] Performed By: #### 2 4321-2, 56018-0, 2776-05 ####[facility] LABORATORYCLIA [id number] [address] [place] NURSING PROGon 07-15-2021 NURSING PROG Normal [facility] NURSING PROG Normal [facility] NURSING PROG Normal [facility] NUTRITIONon 07-15-2021 NUTRITION Normal [facility] Phosphate SerPl-mCncon 07-15 Phosphate [Mass/Vol] 3.4 mg/dL Normal 2.7-4.8 [facility] Comment on above: Order Comment: Speci men Type: BLOOD SPECIMENOrdering Facility: [facility] Address: [facility] [place] [address] Performed By: #### 2 4321-2, , 2776-05 ####[facility] LABORATORYCLIA [id number] [place] [address] [place] THERAPY NTon 07-15-2021 THERAPY NT Normal [facility] US DVT UPPER LTon 07-15-2021 US DVT UPPER LT Normal [facility] XR CHEST 1V FRONTALon 2021 XR CHEST 1V FRONTAL Normal [facility] aPTT PPPon 07-15-2021 aPTT Coag (PPP) [Time] 59.9 s High 23.0-32.4 [facility] Comment on above: Order Comment: Speci men Type: BLOOD SPECIMENOrdering Facility: [facility] Address: [facility] [place] [address] Performed By: #### 1 4979-9 ####[facility] LABORATORYCLIA [id number] [place] [address] [place] Basic metabolic 2000 panelon 07-14-2021 Anion gap [Moles/Vol] 9 mmol/L Normal 9-18 [facility] Comment on above: Order Comment: Speci men Type: BLOOD SPECIMENOrdering Facility: [facility] Address: [address] [place] [address] Performed By: #### 1 9123-9, 2776-05, 25612-8 ####[facility] LABORATORYCLIA [id number] [place] [address] [place] Calcium [Mass/Vol] 8.5 mg/dL Normal 8.5-10.2 [facility] Comment on above: Order Comment: Speci men Type: BLOOD SPECIMENOrdering Facility: [facility] Address: [address] [place] [address] Performed By: #### 1 9123-9, 27711-04, ####[facility] LABORATORYCLIA [id number] [place] [address] [place] Chloride [Moles/Vol] 99 mmol/L Normal 97-105 [facility] Comment on above: Order Comment: Speci men Type: BLOOD SPECIMENOrdering Facility: [facility] Address: [address] [place] [address] Performed By: #### 1 9123-9, 2776-05, ####[facility] LABORATORYCLIA [id number] [place] [address] [place] CO2 [Moles/Vol] 31 mmol/L High 22-30 [facility] Comment on above: Order Comment: Speci men Type: BLOOD SPECIMENOrdering Facility: [facility] Address: [address] [place] [address] Performed By: #### 1 9123-9, 2776-05, 27279-7 ####[facility] LABORATORYCLIA [id number] [place] [address] [place] Creatinine [Mass/Vol] 0.74 mg/dL Normal 0.73-1.22 [facility] Comment on above: Order Comment: Speci men Type: BLOOD SPECIMENOrdering Facility: [facility] Address: [address] [place] [address] Performed By: #### 1 9123-9, 2777-1, 62677-3 ####[facility] LABORATORYCLIA [id number] [address] [place] ESTIMATED GLOMERULAR FILTRATION RATE 98 mL/min/1.73m??? Normal >=60 [facility] Comment on above: Order Comment: Shira feldman Type: BLOOD SPECIMENOrdering Facility: [facility] Address: [address] [place] [address] Result Comment: Luzmaria mated Glomerular Filtration Rate [...] GFR. Performed By: #### 1 9123-9, 2777-, 45209-2 ####[facility] CARMELCLIA [id number] [place] [address] [place] Glucose [Mass/Vol] 117 mg/dL High 74-99 [facility] Comment on above: Order Comment: Shira feldman Type: BLOOD SPECIMENOrdering Facility: [facility] Address: [address] [place] [address] Result Comment: [place] Diabetes Association (ADA) provides guidance for cutoff [...] Standards of Medical Care in Diabetes 2016, [place] Diabetes Association. Diabetes Care. 2016.39(Suppl 1). Performed By: #### 1 9123-9, 2777-1, 67484-9 ####[facility] LABORATORYCLIA [id number] [address] [place] [facility] Potassium [Moles/Vol] 3.7 mmol/L Normal 3.7-5.1 [facility] Comment on above: Order Comment: Speci men Type: BLOOD SPECIMENOrdering Facility: [facility] Address: [address] [place] [address] Performed By: #### 1 9123-9, 2777-1, 70023-1 ####[facility] LABORATORYCLIA [id number] [address] STATES [facility] Sodium [Moles/Vol] 139 mmol/L Normal 136-144 [facility] Comment on above: Order Comment: Speci men Type: BLOOD SPECIMENOrdering Facility: [facility] Address: [address] [place] [address] Performed By: #### 1 9123-9, 2777-1, 88494-4 ####[facility] CARMELCLIA [id number] [address] Urea nitrogen [Mass/Vol] 16 mg/dL Normal 9-24 [facility] Comment on above: Order Comment: Speci men Type: BLOOD SPECIMENOrdering Facility: [facility] Address: [address] [place] [address] Performed By: #### 1 9123-9, 2777-1, 56207-3 ####[facility] LABORATORYCLIA [id number] [address] CBC panel Auto (Bld)on 07-14 Erythrocyte distribution width (RBC) [Ratio] 16.2 % High 11.5-15.0 [facility] Comment on above: Order Comment: Speci men Type: BLOOD SPECIMENOrdering Facility: [facility] Address: [address] [place] [address] Performed By: #### 5 8410-2 ####[facility] LABORATORYCLIA [id number] [address] Hematocrit (Bld) [Volume fraction] 29.7 % Low 39.0-51.0 [facility] Comment on above: Order Comment: Speci men Type: BLOOD SPECIMENOrdering Facility: [facility] Address: [address] [place] [address] Performed By: #### 5 8410-2 ####[facility] LABORATORYCLIA [id number] [address] [facility] Hemoglobin (Bld) [Mass/Vol] 8.8 g/dL Low 13.0-17.0 [facility] Comment on above: Order Comment: Speci men Type: BLOOD SPECIMENOrdering Facility: [facility] Address: [address] [place] [address] Performed By: #### 5 8410-2 ####[facility] LABORATORYCLIA [id number] [address] [place] [facility] MCH (RBC) [Entitic mass] 27.5 pg Normal 26.0-34.0 [facility] Comment on above: Order Comment: Speci men Type: BLOOD SPECIMENOrdering Facility: [facility] Address: [address] [place] [address] Performed By: #### 5 8410-2 ####[facility] LABORATORYCLIA [id number] [address] MCHC (RBC) [Mass/Vol] 29.6 g/dL Low 30.5-36.0 [facility] Comment on above: Order Comment: Speci men Type: BLOOD SPECIMENOrdering Facility: [facility] Address: [address] [place] [address] Performed By: #### 5 8410-2 ####[facility] LABORATORYCLIA [id number] [address] MCV (RBC) [Entitic vol] 92.8 fL Normal 80.0-100.0 [facility] Comment on above: Order Comment: Speci men Type: BLOOD SPECIMENOrdering Facility: [facility] Address: [address] [place] [address] Performed By: #### 5 8410-2 ####[facility] LABORATORYCLIA [id number] [address] [place] Nucleated RBC (Bld) [#/Vol] 10*3/uL Normal <0.01 [facility] Comment on above: Order Comment: Speci men Type: BLOOD SPECIMENOrdering Facility: [facility] Address: [address] [place] [address] Performed By: #### 5 8410-2 ####[facility] LABORATORYCLIA [id number] [address] [place] Platelet mean volume (Bld) [Entitic vol] 9.6 fL Normal 9.0-12.7 [facility] Comment on above: Order Comment: Speci men Type: BLOOD SPECIMENOrdering Facility: [facility] Address: [address] [place] [address] Performed By: #### 5 8410-2 ####[facility] LABORATORYCLIA [id number] [address] [place] Platelets (Bld) [#/Vol] 354 10*3/uL Normal 150-400 [facility] Comment on above: Order Comment: Speci men Type: BLOOD SPECIMENOrdering Facility: [facility] Address: [address] [place] [address] Performed By: #### 5 8410-2 ####[facility] LABORATORYCLIA [id number] [address] [place] RBC (Bld) [#/Vol] 3.20 10*6/uL Low 4.20-6.00 [facility] Comment on above: Order Comment: Speci men Type: BLOOD SPECIMENOrdering Facility: [facility] Address: [address] [place] [address] Performed By: #### 5 8410-2 ####[facility] LABORATORYCLIA [id number] [address] [place] WBC (Bld) [#/Vol] 9.41 10*3/uL Normal 3.70-11.00 [facility] Comment on above: Order Comment: Speci men Type: BLOOD SPECIMENOrdering Facility: [facility] Address: [address] [place] [address] Performed By: #### 5 8410-2 ####[facility] LABORATORYCLIA [id number] [address] CONSULT PROGon 07-14-2021 CONSULT PROG Normal [facility] Magnesium SerPl-mCncon 07-14 Magnesium [Mass/Vol] 2.2 mg/dL Normal 1.7-2.3 [facility] Comment on above: Order Comment: Speci men Type: BLOOD SPECIMENOrdering Facility: [facility] Address: [address] [place] [address] Performed By: #### 1 9123-9, 2777-1, 68039-5 ####[facility] CARMELCLIA [id number] [address] NURSING PROGon 07-14-2021 NURSING PROG Normal [facility] Phosphate SerPl-mCncon 07-14 Phosphate [Mass/Vol] 3.6 mg/dL Normal 2.7-4.8 [facility] Comment on above: Order Comment: Speci men Type: BLOOD SPECIMENOrdering Facility: [facility] Address: [address] [place] [address] Performed By: #### 1 9123-9, 2777-1, 80246-6 ####[facility] CARMELCLIA [id number] [address] aPTT PPPon 07-14-2021 aPTT Coag (PPP) [Time] 62.9 s High 23.0-32.4 [facility] Comment on above: Order Comment: Speci men Type: BLOOD SPECIMENOrdering Facility: [facility] Address: [address] [place] [address] Performed By: #### 1 4979-9 ####[facility] LABORATORYCLIA [id number] [place] [address] [place] aPTT Coag (PPP) [Time] 55.2 s High 23.0-32.4 [facility] Comment on above: Order Comment: Speci men Type: BLOOD SPECIMENOrdering Facility: [facility] Address: [address] [place] [address] Performed By: #### 1 4979-9 ####[facility] LABORATORYCLIA [id number] [place] [address] [place] Basic metabolic 2000 panelon 07-13-2021 Anion gap [Moles/Vol] 10 mmol/L Normal 9-18 [facility] Comment on above: Order Comment: Speci men Type: BLOOD SPECIMENOrdering Facility: [facility] Address: [address] [place] [address] Performed By: #### 1 9123-9, 2777-1, 73372-9 ####[facility] LABORATORYCLIA [id number] [place] [address] [place] Calcium [Mass/Vol] 8.5 mg/dL Normal 8.5-10.2 [facility] Comment on above: Order Comment: Speci men Type: BLOOD SPECIMENOrdering Facility: [facility] Address: [address] [place] [address] Performed By: #### 1 9123-9, 2777-1, 92980-1 ####[facility] LABORATORYCLIA [id number] [place] [address] [place] Chloride [Moles/Vol] 98 mmol/L Normal 97-105 [facility] Comment on above: Order Comment: Speci men Type: BLOOD SPECIMENOrdering Facility: [facility] Address: [address] [place] [address] Performed By: #### 1 9123-9, 2777-1, 35457-6 ####[facility] LABORATORYCLIA [id number] [place] [address] [place] CO2 [Moles/Vol] 32 mmol/L High 22-30 [facility] Comment on above: Order Comment: Speci men Type: BLOOD SPECIMENOrdering Facility: [facility] Address: [address] [place] [address] Performed By: #### 1 9123-9, 2777-, 16495-9 ####[facility] [id number] [place] [address] [place] Creatinine [Mass/Vol] 0.75 mg/dL Normal 0.73-1.22 [facility] Comment on above: Order Comment: Speci men Type: BLOOD SPECIMENOrdering Facility: [facility] Address: [address] [place] [address] Performed By: #### 1 9123-9, 2777-, 26044-2 ####[facility] [id number] [address] [place] ESTIMATED GLOMERULAR FILTRATION RATE 98 mL/min/1.73m??? Normal >=60 [facility] Comment on above: Order Comment: Speci men Type: BLOOD SPECIMENOrdering Facility: [facility] Address: [address] [place] [address] Result Comment: Luzmaria mated Glomerular Filtration Rate [...] GFR. Performed By: #### 1 9123-9, 2777-, 73337-3 ####[facility]ITALIA [id number] [place] [address] [place] Glucose [Mass/Vol] 118 mg/dL High 74-99 [facility] Comment on above: Order Comment: Speci men Type: BLOOD SPECIMENOrdering Facility: [facility] Address: [address] [place] [address] Result Comment: The [place] Diabetes Association (ADA) provides guidance for cutoff [...] Standards of Medical Care in Diabetes 2016, [place] Diabetes Association. Diabetes Care. 2016.39(Suppl 1). Performed By: #### 1 9123-9, 2777-, 83547-7 ####[facility] LABORATORYCLIA [id number] [place] [address] [place] Potassium [Moles/Vol] 3.6 mmol/L Low 3.7-5.1 [facility] Comment on above: Order Comment: Shira feldman Type: BLOOD SPECIMENOrdering Facility: [facility] Address: [address] [place] [address] Performed By: #### 1 9123-9, 27711-04, 39455-5 ####[facility] CAR[facility]ELCLIA [id number] [place] [address] [place] Sodium [Moles/Vol] 140 mmol/L Normal 136-144 [facility] Comment on above: Order Comment: Shira feldman Type: BLOOD SPECIMENOrdering Facility: [facility] Address: [address] [place] [address] Performed By: #### 1 9123-9, 2777, 81643-9 ####[facility] LABORATORYCLIA [id number] [place] [address] [place] Urea nitrogen [Mass/Vol] 15 mg/dL Normal 9-24 [facility] Comment on above: Order Comment: Shira feldman Type: BLOOD SPECIMENOrdering Facility: [facility] Address: [address] [address] Performed By: #### 1 9123-9, 2777-, 28392-9 ####[facility] LABORATORYCLIA [id number] [address] [place] CASE MANAGEMon 07-13-2021 CASE MANAGEM Normal [facility] CBC panel Auto (Bld)on 07-13 Erythrocyte distribution width (RBC) [Ratio] 16.2 % High 11.5-15.0 [facility] Comment on above: Order Comment: Speci men Type: BLOOD SPECIMENOrdering Facility: [facility] Address: [address] [place] [address] Performed By: #### 5 8410-2 ####[facility] LABORATORYCLIA [id number] [address] Hematocrit (Bld) [Volume fraction] 29.5 % Low 39.0-51.0 [facility] Comment on above: Order Comment: Speci men Type: BLOOD SPECIMENOrdering Facility: [facility] Address: [address] [place] [address] Performed By: #### 5 8410-2 ####[facility] LABORATORYCLIA [id number] [address] Hemoglobin (Bld) [Mass/Vol] 8.9 g/dL Low 13.0-17.0 [facility] Comment on above: Order Comment: Speci men Type: BLOOD SPECIMENOrdering Facility: [facility] Address: [address] [place] [address] Performed By: #### 5 8410-2 ####[facility] LABORATORYCLIA [id number] [address] [place] MCH (RBC) [Entitic mass] 27.8 pg Normal 26.0-34.0 [facility] Comment on above: Order Comment: Speci men Type: BLOOD SPECIMENOrdering Facility: [facility] Address: [address] [place] [address] Performed By: #### 5 8410-2 ####[facility] LABORATORYCLIA [id number] [address] [place] MCHC (RBC) [Mass/Vol] 30.2 g/dL Low 30.5-36.0 [facility] Comment on above: Order Comment: Speci men Type: BLOOD SPECIMENOrdering Facility: [facility] Address: [address] Performed By: #### 5 8410-2 ####[facility] LABORATORYCLIA [id number] [address] [place] MCV (RBC) [Entitic vol] 92.2 fL Normal 80.0-100.0 [facility] Comment on above: Order Comment: Speci men Type: BLOOD SPECIMENOrdering Facility: [facility] Address: [address] [place], [place] [id number] Performed By: #### 5 8410-2 ####[facility] LABORATORYCLIA [id number] [address] [place] Nucleated RBC (Bld) [#/Vol] 10*3/uL Normal <0.01 [facility] Comment on above: Order Comment: Speci men Type: BLOOD SPECIMENOrdering Facility: [facility] Address: [address] [place], [place] [address] Performed By: #### 5 8410-2 ####[facility] LABORATORYCLIA [id number] [address] [place] Platelet mean volume (Bld) [Entitic vol] 9.8 fL Normal 9.0-12.7 [facility] Comment on above: Order Comment: Speci men Type: BLOOD SPECIMENOrdering Facility: [facility] Address: [address] [place], [place] [address] Performed By: #### 5 8410-2 ####[facility] LABORATORYCLIA [id number] [place] [address] [place] Platelets (Bld) [#/Vol] 356 10*3/uL Normal 150-400 [facility] Comment on above: Order Comment: Speci men Type: BLOOD SPECIMENOrdering Facility: [facility] Address: [address] Performed By: #### 5 8410-2 ####[facility] LABORATORYCLIA [id number] [place] [address] [place] RBC (Bld) [#/Vol] 3.20 10*6/uL Low 4.20-6.00 [facility] Comment on above: Order Comment: Speci men Type: BLOOD SPECIMENOrdering Facility: [facility] Address: [address] [place] [address] Performed By: #### 5 8410-2 ####[facility] LABORATORYCLIA [id number] [address] OF [facility] WBC (Bld) [#/Vol] 9.20 10*3/uL Normal 3.70-11.00 [facility] Comment on above: Order Comment: Speci men Type: BLOOD SPECIMENOrdering Facility: [facility] Address: [address] [place] [address] Performed By: #### 5 8410-2 ####[facility] LABORATORYCLIA [id number] [address] [place] CONSULT PROGon 07-13-2021 CONSULT PROG Normal [facility] CONSULT PROG Normal [facility] CONSULT PROG Normal [facility] Magnesium SerPl-mCncon 07-13 Magnesium [Mass/Vol] 2.1 mg/dL Normal 1.7-2.3 [facility] Comment on above: Order Comment: Speci men Type: BLOOD SPECIMENOrdering Facility: [facility] Address: [address] [place] [address] Performed By: #### 1 9123-9, 2777-1, 59960-3 ####[facility] LABORATORYCLIA [id number] [address] [place] Phosphate SerPl-mCncon 07-13 Phosphate [Mass/Vol] 3.7 mg/dL Normal 2.7-4.8 [facility] Comment on above: Order Comment: Speci men Type: BLOOD SPECIMENOrdering Facility: [facility] Address: [address] [place] [address] Performed By: #### 1 9123-9, 2777-1, 67233-6 ####[facility] LABORATORYCLIA [id number] [address] [place] THERAPY NTon 07-13-2021 THERAPY NT Normal [facility] THERAPY NT Normal [facility] Vancomycin random [Mass/Vol] on 07-13-2021 Vancomycin [Mass/Vol] 31.7 ug/mL High 10.0-20.0 [facility] Comment on above: Order Comment: Speci men Type: BLOOD SPECIMENOrdering Facility: [facility] Address: [address] [place] [address] Result Comment: Refe rence ranges and high/low indicator flags are provided as general guidelines only. The treating physician must determine appropriate target levels/dosing based on the specific clinical situation. Performed By: #### 4 091-5 ####[facility] LABORATORYCLIA [id number] [place] [address] [place] aPTT PPPon 07-13-2021 aPTT Coag (PPP) [Time] 47.3 s High 23.0-32.4 [facility] Comment on above: Order Comment: Speci men Type: BLOOD SPECIMENOrdering Facility: [facility] Address: [address] [place] [address] Performed By: #### 1 4979-9 ####[facility] LABORATORYCLIA [id number] [address] [place] aPTT Coag (PPP) [Time] 51.2 s High 23.0-32.4 [facility] Comment on above: Order Comment: Speci men Type: BLOOD SPECIMENOrdering Facility: [facility] Address: [address] [place] [address] Performed By: #### 1 4979-9 ####[facility] LABORATORYCLIA [id number] [address] OF [facility] aPTT Coag (PPP) [Time] 47.5 s High 23.0-32.4 [facility] Comment on above: Order Comment: Speci men Type: BLOOD SPECIMENOrdering Facility: [facility] Address: [address] [place] [address] Performed By: #### 1 4979-9 ####[facility] LABORATORYCLIA [id number] [place] [address] [place] Basic metabolic 2000 panelon 07-12-2021 Anion gap [Moles/Vol] 7 mmol/L Low 9-18 [facility] Comment on above: Order Comment: Speci men Type: BLOOD SPECIMENOrdering Facility: [facility] Address: [address] [place] [address] Performed By: #### 1 9123-9, 2777-1, 04607-9 ####[facility] LABORATORYCLIA [id number] [place] [address] [place] Calcium [Mass/Vol] 8.3 mg/dL Low 8.5-10.2 [facility] Comment on above: Order Comment: Speci men Type: BLOOD SPECIMENOrdering Facility: [facility] Address: [address] [place] [address] Performed By: #### 1 9123-9, 2777-1, 14318-4 ####[facility] LABORATORYCLIA [id number] [place] [address] [place] Chloride [Moles/Vol] 101 mmol/L Normal 97-105 [facility] Comment on above: Order Comment: Speci men Type: BLOOD SPECIMENOrdering Facility: [facility] Address: [address] [place] [address] Performed By: #### 1 9123-9, 2777-1, 87926-2 ####[facility] LABORATORYCLIA [id number] [place] [address] [place] CO2 [Moles/Vol] 32 mmol/L High 22-30 [facility] Comment on above: Order Comment: Speci men Type: BLOOD SPECIMENOrdering Facility: [facility] Address: [address] [place] [address] Performed By: #### 1 9123-9, 2777-1, 25306-0 ####[facility]PITALIA [id number] [place] [address] [place] Creatinine [Mass/Vol] 0.70 mg/dL Low 0.73-1.22 [facility] Comment on above: Order Comment: Shira feldman Type: BLOOD SPECIMENOrdering Facility: [facility] Address: [address] [place], [place] [phone] Performed By: #### 1 9123-9, 2777-1, 85345-0 ####[facility]PITALIA [id number] [place] [address] [place] ESTIMATED GLOMERULAR FILTRATION RATE 100 mL/min/1.73m??? Normal >=60 [facility] Comment on above: Order Comment: Shira feldman Type: BLOOD SPECIMENOrdering Facility: [facility] Address: [address] [place] [address] Result Comment: Luzmaria mated Glomerular Filtration Rate [...] GFR. Performed By: #### 1 9123-9, 2777-1, 13497-7 ####[facility]PITALIA [id number] [place] [address] [place] Glucose [Mass/Vol] 104 mg/dL High 74-99 [facility] Comment on above: Order Comment: Shira francia Type: BLOOD SPECIMENOrdering Facility: [facility] Address: [address] [id number] Result Comment: The [place] Diabetes Association (ADA) provides guidance for cutoff [...] Standards of Medical Care in Diabetes 2016, [place] Diabetes Association. Diabetes Care. 2016.39(Suppl 1). Performed By: #### 1 9123-9, 2777-1, 09148-0 ####[facility] LABORATORYCLIA [id number] [place] [address] [place] [address] [facility] Potassium [Moles/Vol] 3.7 mmol/L Normal 3.7-5.1 [facility] Comment on above: Order Comment: Shira feldman Type: BLOOD SPECIMENOrdering Facility: [facility] Address: [address] [place] [address] Performed By: #### 1 9123-9, 2777-, 46457-7 ####[facility] CARMELCLIA [id number] [address] STATES [facility] Sodium [Moles/Vol] 140 mmol/L Normal 136-144 [facility] Comment on above: Order Comment: Shira feldman Type: BLOOD SPECIMENOrdering Facility: [facility] Address: [address] [address] Performed By: #### 1 9123-9, 2777-1, 33465-4 ####[facility] CARMELCLIA [id number] [address] STATES [facility] Urea nitrogen [Mass/Vol] 12 mg/dL Normal 9-24 [facility] Comment on above: Order Comment: Johni francia Type: BLOOD SPECIMENOrdering Facility: [facility] Address: [address] [address] Performed By: #### 1 9123-9, 2777-, 55199-3 ####[facility] LABORATORYCLIA [id number] [address] [place] CBC panel Auto (Bld)on 07-12 Erythrocyte distribution width (RBC) [Ratio] 16.1 % High 11.5-15.0 [facility] Comment on above: Order Comment: Speci men Type: BLOOD SPECIMENOrdering Facility: [facility] Address: [address] [place] [address] Performed By: #### 5 8410-2 ####[facility] LABORATORYCLIA [id number] [address] [facility] Hematocrit (Bld) [Volume fraction] 28.2 % Low 39.0-51.0 [facility] Comment on above: Order Comment: Speci men Type: BLOOD SPECIMENOrdering Facility: [facility] Address: [address] [place] [address] Performed By: #### 5 8410-2 ####[facility] LABORATORYCLIA [id number] [address] Hemoglobin (Bld) [Mass/Vol] 8.5 g/dL Low 13.0-17.0 [facility] Comment on above: Order Comment: Speci men Type: BLOOD SPECIMENOrdering Facility: [facility] Address: [address] [place] [address] Performed By: #### 5 8410-2 ####[facility] LABORATORYCLIA [id number] [address] OF [facility] MCH (RBC) [Entitic mass] 26.8 pg Normal 26.0-34.0 [facility] Comment on above: Order Comment: Speci men Type: BLOOD SPECIMENOrdering Facility: [facility] Address: [address] [place] [address] Performed By: #### 5 8410-2 ####[facility] LABORATORYCLIA [id number] [address] [place] MCHC (RBC) [Mass/Vol] 30.1 g/dL Low 30.5-36.0 [facility] Comment on above: Order Comment: Speci men Type: BLOOD SPECIMENOrdering Facility: [facility] Address: [address] [place] [address] Performed By: #### 5 8410-2 ####[facility] LABORATORYCLIA [id number] [address] MCV (RBC) [Entitic vol] 89.0 fL Normal 80.0-100.0 [facility] Comment on above: Order Comment: Speci men Type: BLOOD SPECIMENOrdering Facility: [facility] Address: [address] [place] [address] Performed By: #### 5 8410-2 ####[facility] LABORATORYCLIA [id number] [address] Nucleated RBC (Bld) [#/Vol] 10*3/uL Normal <0.01 [facility] Comment on above: Order Comment: Speci men Type: BLOOD SPECIMENOrdering Facility: [facility] Address: [address] [place] [address] Performed By: #### 5 8410-2 ####[facility] LABORATORYCLIA [id number] [address] Platelet mean volume (Bld) [Entitic vol] 9.6 fL Normal 9.0-12.7 [facility] Comment on above: Order Comment: Speci men Type: BLOOD SPECIMENOrdering Facility: [facility] Address: [address] [place] [address] Performed By: #### 5 8410-2 ####[facility] LABORATORYCLIA [id number] [address] Platelets (Bld) [#/Vol] 340 10*3/uL Normal 150-400 [facility] Comment on above: Order Comment: Speci men Type: BLOOD SPECIMENOrdering Facility: [facility] Address: [address] [place] [address] Performed By: #### 5 8410-2 ####[facility] LABORATORYCLIA [id number] [address] [place] RBC (Bld) [#/Vol] 3.17 10*6/uL Low 4.20-6.00 [facility] Comment on above: Order Comment: Speci men Type: BLOOD SPECIMENOrdering Facility: [facility] Address: [address] [place] [address] Performed By: #### 5 8410-2 ####[facility] LABORATORYCLIA [id number] [address] WBC (Bld) [#/Vol] 8.66 10*3/uL Normal 3.70-11.00 [facility] Comment on above: Order Comment: Speci men Type: BLOOD SPECIMENOrdering Facility: [facility] Address: [address] [place] [address] Performed By: #### 5 8410-2 ####[facility] LABORATORYCLIA [id number] [address] CONSULTon 07-12-2021 CONSULT Normal [facility] CONSULT PROGon 07-12-2021 CONSULT PROG Normal [facility] Magnesium SerPl-mCncon 07-12 Magnesium [Mass/Vol] 2.1 mg/dL Normal 1.7-2.3 [facility] Comment on above: Order Comment: Speci men Type: BLOOD SPECIMENOrdering Facility: [facility] Address: [address] [place] [address] Performed By: #### 1 9123-9, 2777-1, 93734-2 ####[facility] LABORATORYCLIA [id number] [address] NURSING PROGon 07-12-2021 NURSING PROG Normal [facility] Phosphate SerPl-mCncon 07-12 Phosphate [Mass/Vol] 3.1 mg/dL Normal 2.7-4.8 [facility] Comment on above: Order Comment: Speci men Type: BLOOD SPECIMENOrdering Facility: [facility] Address: [address] [place] [address] Performed By: #### 1 9123-9, 2777-1, 23033-9 ####[facility] LABORATORYCLIA [id number] [address] THERAPY NTon 07-12-2021 THERAPY NT Normal [facility] aPTT PPPon 07-12-2021 aPTT Coag (PPP) [Time] 49.5 s High 23.0-32.4 [facility] Comment on above: Order Comment: Speci men Type: BLOOD SPECIMENOrdering Facility: [facility] Address: [address] [place] [address] Performed By: #### 1 4979-9 ####[facility] LABORATORYCLIA [id number] [address] aPTT Coag (PPP) [Time] 68.0 s High 23.0-32.4 [facility] Comment on above: Order Comment: Speci men Type: BLOOD SPECIMENOrdering Facility: [facility] Address: [address] [place] [address] Performed By: #### 1 4979-9 ####[facility] CARMELCLIA [id number] [address] aPTT Coag (PPP) [Time] 80.0 s High 23.0-32.4 [facility] Comment on above: Order Comment: Speci men Type: BLOOD SPECIMENOrdering Facility: [facility] Address: [address] [place] [address] Performed By: #### 1 4979-9 ####[facility] LABORATORYCLIA [id number] [address] [facility] CASE MGT INIT ASSESon 2021 CASE MGT INIT ASSES Normal [facility] CBC panel Auto (Bld)on 07-11 Erythrocyte distribution width (RBC) [Ratio] 16.3 % High 11.5-15.0 [facility] Comment on above: Order Comment: Speci men Type: BLOOD SPECIMENOrdering Facility: [facility] Address: [address] [place] [address] Performed By: #### 5 8410-2 ####[facility] LABORATORYCLIA [id number] [address] [place] Hematocrit (Bld) [Volume fraction] 28.3 % Low 39.0-51.0 [facility] Comment on above: Order Comment: Speci men Type: BLOOD SPECIMENOrdering Facility: [facility] Address: [address] [place] [address] Performed By: #### 5 8410-2 ####[facility] LABORATORYCLIA [id number] [address] [facility] Hemoglobin (Bld) [Mass/Vol] 8.8 g/dL Low 13.0-17.0 [facility] Comment on above: Order Comment: Speci men Type: BLOOD SPECIMENOrdering Facility: [facility] Address: [address] [place] [address] Performed By: #### 5 8410-2 ####[facility] LABORATORYCLIA [id number] [address] OF [facility] MCH (RBC) [Entitic mass] 27.4 pg Normal 26.0-34.0 [facility] Comment on above: Order Comment: Speci men Type: BLOOD SPECIMENOrdering Facility: [facility] Address: [address] [place] [address] Performed By: #### 5 8410-2 ####[facility] LABORATORYCLIA [id number] [address] [place] MCHC (RBC) [Mass/Vol] 31.1 g/dL Normal 30.5-36.0 [facility] Comment on above: Order Comment: Speci men Type: BLOOD SPECIMENOrdering Facility: [facility] Address: [address] [place] [address] Performed By: #### 5 8410-2 ####[facility] LABORATORYCLIA [id number] [address] MCV (RBC) [Entitic vol] 88.2 fL Normal 80.0-100.0 [facility] Comment on above: Order Comment: Speci men Type: BLOOD SPECIMENOrdering Facility: [facility] Address: [address] [address] Performed By: #### 5 8410-2 ####[facility] LABORATORYCLIA [id number] [address] Nucleated RBC (Bld) [#/Vol] 10*3/uL Normal <0.01 [facility] Comment on above: Order Comment: Speci men Type: BLOOD SPECIMENOrdering Facility: [facility] Address: [address] [place] [address] Performed By: #### 5 8410-2 ####[facility] LABORATORYCLIA [id number] [address] [place] Platelet mean volume (Bld) [Entitic vol] 9.7 fL Normal 9.0-12.7 [facility] Comment on above: Order Comment: Speci men Type: BLOOD SPECIMENOrdering Facility: [facility] Address: [address] [place] [address] Performed By: #### 5 8410-2 ####[facility] LABORATORYCLIA [id number] [address] [place] Platelets (Bld) [#/Vol] 315 10*3/uL Normal 150-400 [facility] Comment on above: Order Comment: Speci men Type: BLOOD SPECIMENOrdering Facility: [facility] Address: [address] [place] [address] Performed By: #### 5 8410-2 ####[facility] LABORATORYCLIA [id number] [address] RBC (Bld) [#/Vol] 3.21 10*6/uL Low 4.20-6.00 [facility] Comment on above: Order Comment: Speci men Type: BLOOD SPECIMENOrdering Facility: [facility] Address: [address] [place] [address] Performed By: #### 5 8410-2 ####[facility] LABORATORYCLIA [id number] [address] [place] WBC (Bld) [#/Vol] 9.18 10*3/uL Normal 3.70-11.00 [facility] Comment on above: Order Comment: Speci men Type: BLOOD SPECIMENOrdering Facility: [facility] Address: [address] [place] [address] Performed By: #### 5 8410-2 ####[facility] LABORATORYCLIA [id number] [address] CONSULT PROGon 07-11-2021 CONSULT PROG Normal [facility] CT BRAIN WO IVCONon 07-12-[address] BRAIN WO IVCON Normal [facility] Magnesium SerPl-mCncon 07-11 Magnesium [Mass/Vol] 2.1 mg/dL Normal 1.7-2.3 [facility] Comment on above: Order Comment: Speci men Type: BLOOD SPECIMENOrdering Facility: [facility] Address: [address] [place] [address] Performed By: #### 1 9123-9, 2777-1 ####[facility] LABORATORYCLIA [id number] [address] NURSING PROGon 07-11-2021 NURSING PROG Normal [facility] NURSING PROG Normal [facility] Phosphate SerPl-mCncon 07-11 Phosphate [Mass/Vol] 3.4 mg/dL Normal 2.7-4.8 [facility] Comment on above: Order Comment: Speci men Type: BLOOD SPECIMENOrdering Facility: [facility] Address: [address] [place] [address] Performed By: #### 1 9123-9, 2777-1 ####[facility] LABORATORYCLIA [id number] [address] [place] THERAPY NTon 07-11-2021 THERAPY NT Normal [facility] Vancomycin random [Mass/Vol] on 07-11-2021 Vancomycin [Mass/Vol] 28.6 ug/mL High 10.0-20.0 [facility] Comment on above: Order Comment: Speci men Type: BLOOD SPECIMENOrdering Facility: [facility] Address: [address] [place] [address] Result Comment: Refe rence ranges and high/low indicator flags are provided as general guidelines only. The treating physician must determine appropriate target levels/dosing based on the specific clinical situation. Performed By: #### 4 091-5 ####[facility] LABORATORYCLIA [id number] [address] aPTT PPPon 07-11-2021 aPTT Coag (PPP) [Time] 62.0 s High 23.0-32.4 [facility] Comment on above: Order Comment: Speci men Type: BLOOD SPECIMENOrdering Facility: [facility] Address: [address] [place] [address] Performed By: #### 1 4979-9 ####[facility] LABORATORYCLIA [id number] [address] aPTT Coag (PPP) [Time] 52.7 s High 23.0-32.4 [facility] Comment on above: Order Comment: Speci men Type: BLOOD SPECIMENOrdering Facility: [facility] Address: [address] [place] [address] Performed By: #### 1 4979-9 ####[facility] LABORATORYCLIA [id number] [address] aPTT Coag (PPP) [Time] 29.9 s Normal 23.0-32.4 [facility] Comment on above: Order Comment: Speci men Type: BLOOD SPECIMENOrdering Facility: [facility] Address: [address] [place] [address] Performed By: #### 1 4979-9 ####[facility] LABORATORYCLIA [id number] [address] Basic metabolic 2000 panelon 07-10-2021 Anion gap [Moles/Vol] 14 mmol/L Normal 9-18 [facility] Comment on above: Order Comment: Speci men Type: BLOOD SPECIMENOrdering Facility: [facility] Address: [address] [place] [address] Performed By: #### 1 9123-9, 27771, 34910-1 ####[facility] LABORATORYCLIA [id number] [place] [address] [place] Calcium [Mass/Vol] 8.5 mg/dL Normal 8.5-10.2 [facility] Comment on above: Order Comment: Speci men Type: BLOOD SPECIMENOrdering Facility: [facility] Address: [address] [place] [address] Performed By: #### 1 9123-9, 27711-04, 76092-1 ####[facility] LABORATORYCLIA [id number] [place] [address] [place] Chloride [Moles/Vol] 100 mmol/L Normal 97-105 [facility] Comment on above: Order Comment: Speci men Type: BLOOD SPECIMENOrdering Facility: [facility] Address: [address] [place] [address] Performed By: #### 1 9123-9, 27711-04, 52698-9 ####[facility] LABORATORYCLIA [id number] [place] [address] [place] CO2 [Moles/Vol] 27 mmol/L Normal 22-30 [facility] Comment on above: Order Comment: Speci men Type: BLOOD SPECIMENOrdering Facility: [facility] Address: [address] [place] [address] Performed By: #### 1 9123-9, 2776-05, 47954-3 ####[facility] LABORATORYCLIA [id number] [place] [address] [place] Creatinine [Mass/Vol] 0.66 mg/dL Low 0.73-1.22 [facility] Comment on above: Order Comment: Speci men Type: BLOOD SPECIMENOrdering Facility: [facility] Address: [address] [place] [address] Performed By: #### 1 9123-9, 2771, 76267-1 ####[facility]PITALIA [id number] [place] [address] [place] ESTIMATED GLOMERULAR FILTRATION RATE 102 mL/min/1.73m??? Normal >=60 [facility] Comment on above: Order Comment: Shira feldman Type: BLOOD SPECIMENOrdering Facility: [facility] Address: [address] [place] [address] Result Comment: Luzmaria mated Glomerular Filtration Rate [...] GFR. Performed By: #### 1 9123-9, 2777-1, 63495-8 ####[facility] HOSPITALIA [id number] [place] [address] [place] Glucose [Mass/Vol] 93 mg/dL Normal 74-99 [facility] Comment on above: Order Comment: Shira francia Type: BLOOD SPECIMENOrdering Facility: [facility] Address: [address] [place] [address] Result Comment: [place] Diabetes Association (ADA) provides guidance for cutoff [...] Standards of Medical Care in Diabetes 2016, [place] Diabetes Association. Diabetes Care. 2016.39(Suppl 1). Performed By: #### 1 9123-9, 2777-1, 77048-9 ####[facility] LABORATORYCLIA [id number] [place] [id number] [place] Potassium [Moles/Vol] 3.5 mmol/L Low 3.7-5.1 [facility] Comment on above: Order Comment: Speci men Type: BLOOD SPECIMENOrdering Facility: [facility] Address: [address] [place] [address] Performed By: #### 1 9123-9, 2777-, 94992-2 ####[facility] LABORATORYCLIA [id number] [address] [place] Sodium [Moles/Vol] 141 mmol/L Normal 136-144 [facility] Comment on above: Order Comment: Speci men Type: BLOOD SPECIMENOrdering Facility: [facility] Address: [address] [place] [address] Performed By: #### 1 9123-9, 2777, 87295-5 ####[facility] LABORATORYCLIA [id number] [address] [facility] Urea nitrogen [Mass/Vol] 11 mg/dL Normal 9-24 [facility] Comment on above: Order Comment: Speci men Type: BLOOD SPECIMENOrdering Facility: [facility] Address: [address] [place] [address] Performed By: #### 1 9123-9, 2777, 64495-4 ####[facility] LABORATORYCLIA [id number] [address] [place] CBC panel Auto (Bld)on 07-10 Erythrocyte distribution width (RBC) [Ratio] 16.2 % High 11.5-15.0 [facility] Comment on above: Order Comment: Speci men Type: BLOOD SPECIMENOrdering Facility: [facility] Address: [address] [place] [address] Performed By: #### 5 8410-2 ####[facility] LABORATORYCLIA [id number] [address] [facility] Hematocrit (Bld) [Volume fraction] 30.6 % Low 39.0-51.0 [facility] Comment on above: Order Comment: Speci men Type: BLOOD SPECIMENOrdering Facility: [facility] Address: [address] [place] [address] Performed By: #### 5 8410-2 ####[facility] LABORATORYCLIA [id number] [address] Hemoglobin (Bld) [Mass/Vol] 9.6 g/dL Low 13.0-17.0 [facility] Comment on above: Order Comment: Speci men Type: BLOOD SPECIMENOrdering Facility: [facility] Address: [address] [place] [address] Performed By: #### 5 8410-2 ####[facility] LABORATORYCLIA [id number] [address] MCH (RBC) [Entitic mass] 28.3 pg Normal 26.0-34.0 [facility] Comment on above: Order Comment: Speci men Type: BLOOD SPECIMENOrdering Facility: [facility] Address: [address] [place] [address] Performed By: #### 5 8410-2 ####[facility] LABORATORYCLIA [id number] [address] MCHC (RBC) [Mass/Vol] 31.4 g/dL Normal 30.5-36.0 [facility] Comment on above: Order Comment: Speci men Type: BLOOD SPECIMENOrdering Facility: [facility] Address: [address] [place] [address] Performed By: #### 5 8410-2 ####[facility] LABORATORYCLIA [id number] [address] MCV (RBC) [Entitic vol] 90.3 fL Normal 80.0-100.0 [facility] Comment on above: Order Comment: Speci men Type: BLOOD SPECIMENOrdering Facility: [facility] Address: [address] [place] [address] Performed By: #### 5 8410-2 ####[facility] LABORATORYCLIA [id number] [address] [place] Nucleated RBC (Bld) [#/Vol] 10*3/uL Normal <0.01 [facility] Comment on above: Order Comment: Speci men Type: BLOOD SPECIMENOrdering Facility: [facility] Address: [address] [place] [address] Performed By: #### 5 8410-2 ####[facility] LABORATORYCLIA [id number] [address] [place] Platelet mean volume (Bld) [Entitic vol] 9.7 fL Normal 9.0-12.7 [facility] Comment on above: Order Comment: Speci men Type: BLOOD SPECIMENOrdering Facility: [facility] Address: [address] [place] [address] Performed By: #### 5 8410-2 ####[facility] LABORATORYCLIA [id number] [address] [place] Platelets (Bld) [#/Vol] 306 10*3/uL Normal 150-400 [facility] Comment on above: Order Comment: Speci men Type: BLOOD SPECIMENOrdering Facility: [facility] Address: [address] [place] [address] Performed By: #### 5 8410-2 ####[facility] LABORATORYCLIA [id number] [address] [place] RBC (Bld) [#/Vol] 3.39 10*6/uL Low 4.20-6.00 [facility] Comment on above: Order Comment: Speci men Type: BLOOD SPECIMENOrdering Facility: [facility] Address: [address] [place] [address] Performed By: #### 5 8410-2 ####[facility] LABORATORYCLIA [id number] [address] [place] WBC (Bld) [#/Vol] 9.81 10*3/uL Normal 3.70-11.00 [facility] Comment on above: Order Comment: Speci men Type: BLOOD SPECIMENOrdering Facility: [facility] Address: [address] [place] [address] Performed By: #### 5 8410-2 ####[facility] LABORATORYCLIA [id number] [address] [place] CONSULTon 07-10-2021 CONSULT Normal [facility] CONSULT Normal [facility] Magnesium SerPl-mCncon 07-10 Magnesium [Mass/Vol] 1.9 mg/dL Normal 1.7-2.3 [facility] Comment on above: Order Comment: Speci men Type: BLOOD SPECIMENOrdering Facility: [facility] Address: [address] [place] [address] Performed By: #### 1 9123-9, 2777-1, 79297-7 ####[facility] LABORATORYCLIA [id number] [address] [facility] NURSING PROGon 07-10-2021 NURSING PROG Normal [facility] NURSING PROG Normal [facility] NUTRITIONon 07-10-2021 NUTRITION Normal [facility] Phosphate SerPl-mCncon 07-10 Phosphate [Mass/Vol] 3.6 mg/dL Normal 2.7-4.8 [facility] Comment on above: Order Comment: Speci men Type: BLOOD SPECIMENOrdering Facility: [facility] Address: [address] [place] [address] Performed By: #### 1 9123-9, 2777-, 58099-6 ####[facility] LABORATORYCLIA [id number] [place] [address] [place] US DVT LOWER BILon US DVT LOWER RAINER Normal [facility] aPTT PPPon 07-10-2021 aPTT Coag (PPP) [Time] 28.8 s Normal 23.0-32.4 [facility] Comment on above: Order Comment: Speci men Type: BLOOD SPECIMENOrdering Facility: [facility] Address: [address] [place] [address] Performed By: #### 1 4979-9 ####[facility] LABORATORYCLIA [id number] [place] [address] [place] aPTT Coag (PPP) [Time] 28.4 s Normal 23.0-32.4 [facility] Comment on above: Order Comment: Speci men Type: BLOOD SPECIMENOrdering Facility: [facility] Address: [address] [place] [address] Performed By: #### 1 4979-9 ####[facility] LABORATORYCLIA [id number] [address] [place] ALLIED HEALTHon 07-09-2021 ALLIED HEALTH Normal [facility] Basic metabolic 2000 panelon 07-09-2021 Anion gap [Moles/Vol] 9 mmol/L Normal 9-18 [facility] Comment on above: Order Comment: Speci men Type: BLOOD SPECIMENOrdering Facility: [facility] Address: [address] [place] [address] Performed By: #### 1 9123-9, 2777-1, 01116-0 ####[facility] LABORATORYCLIA [id number] [place] [address] [place] [address] [facility] Calcium [Mass/Vol] 8.3 mg/dL Low 8.5-10.2 [facility] Comment on above: Order Comment: Speci men Type: BLOOD SPECIMENOrdering Facility: [facility] Address: [address] [place] [address] Performed By: #### 1 9123-9, 2777-1, 79092-7 ####[facility] LABORATORYCLIA [id number] [address] [place] Chloride [Moles/Vol] 100 mmol/L Normal 97-105 [facility] Comment on above: Order Comment: Speci men Type: BLOOD SPECIMENOrdering Facility: [facility] Address: [address] [place] [address] Performed By: #### 1 9123-9, 2777-1, 41903-6 ####[facility] LABORATORYCLIA [id number] [place] [address] [place] CO2 [Moles/Vol] 29 mmol/L Normal 22-30 [facility] Comment on above: Order Comment: Speci men Type: BLOOD SPECIMENOrdering Facility: [facility] Address: [address] [place] [address] Performed By: #### 1 9123-9, 2777-1, 51234-7 ####[facility] LABORATORYCLIA [id number] [address] [place] Creatinine [Mass/Vol] 0.61 mg/dL Low 0.73-1.22 [facility] Comment on above: Order Comment: Speci men Type: BLOOD SPECIMENOrdering Facility: [facility] Address: [address] [place] [address] Performed By: #### 1 9123-9, 27771, 98563-1 ####[facility] LABORATORYCLIA [id number] [address] ESTIMATED GLOMERULAR FILTRATION RATE 104 mL/min/1.73m??? Normal >=60 [facility] Comment on above: Order Comment: Speci men Type: BLOOD SPECIMENOrdering Facility: [facility] Address: [address] [place] [address] Result Comment: Luzmaria mated Glomerular Filtration Rate [...] GFR. Performed By: #### 1 9123-9, 2777-1, 90323-4 ####[facility] LABORATORYCLIA [id number] [address] [place] Glucose [Mass/Vol] 106 mg/dL High 74-99 [facility] Comment on above: Order Comment: Speci men Type: BLOOD SPECIMENOrdering Facility: [facility] Address: [address] [place] [address] Result Comment: The [place] Diabetes Association (ADA) provides guidance for cutoff [...] Standards of Medical Care in Diabetes 2016, [place] Diabetes Association. Diabetes Care. 2016.39(Suppl 1). Performed By: #### 1 9123-9, 2777-1, 66775-5 ####[facility] LABORATORYCLIA [id number] [place] [address] [place] Potassium [Moles/Vol] 3.6 mmol/L Low 3.7-5.1 [facility] Comment on above: Order Comment: Shira feldman Type: BLOOD SPECIMENOrdering Facility: [facility] Address: [address] [place] [address] Performed By: #### 1 9123-9, 2777-, 28379-7 ####[facility] LABORATORYCLIA [id number] [place] [address] [place] Sodium [Moles/Vol] 138 mmol/L Normal 136-144 [facility] Comment on above: Order Comment: Shira men Type: BLOOD SPECIMENOrdering Facility: [facility] Address: [address] [place] [address] Performed By: #### 1 9123-9, 2777-, 61487-4 ####[facility] LABORATORYCLIA [id number] [place] [address] [place] Urea nitrogen [Mass/Vol] 12 mg/dL Normal 9-24 [facility] Comment on above: Order Comment: Shira men Type: BLOOD SPECIMENOrdering Facility: [facility] Address: [address] [place] [address] Performed By: #### 1 9123-9, 2777-1, 29362-2 ####[facility] LABORATORYCLIA [id number] [address] CBC panel Auto (Bld)on 07-09 Erythrocyte distribution width (RBC) [Ratio] 16.2 % High 11.5-15.0 [facility] Comment on above: Order Comment: Speci men Type: BLOOD SPECIMENOrdering Facility: [facility] Address: [address] [place] [address] Performed By: #### 5 8410-2 ####[facility] LABORATORYCLIA [id number] [address] Hematocrit (Bld) [Volume fraction] 29.0 % Low 39.0-51.0 [facility] Comment on above: Order Comment: Speci men Type: BLOOD SPECIMENOrdering Facility: [facility] Address: [address] [place] [address] Performed By: #### 5 8410-2 ####[facility] LABORATORYCLIA [id number] [address] Hemoglobin (Bld) [Mass/Vol] 8.8 g/dL Low 13.0-17.0 [facility] Comment on above: Order Comment: Speci men Type: BLOOD SPECIMENOrdering Facility: [facility] Address: [address] [place] [address] Performed By: #### 5 8410-2 ####[facility] LABORATORYCLIA [id number] [address] MCH (RBC) [Entitic mass] 27.0 pg Normal 26.0-34.0 [facility] Comment on above: Order Comment: Speci men Type: BLOOD SPECIMENOrdering Facility: [facility] Address: [address] [place] [address] Performed By: #### 5 8410-2 ####[facility] LABORATORYCLIA [id number] [address] MCHC (RBC) [Mass/Vol] 30.3 g/dL Low 30.5-36.0 [facility] Comment on above: Order Comment: Speci men Type: BLOOD SPECIMENOrdering Facility: [facility] Address: [address] [place] [address] Performed By: #### 5 8410-2 ####[facility] LABORATORYCLIA [id number] [address] OF [facility] MCV (RBC) [Entitic vol] 89.0 fL Normal 80.0-100.0 [facility] Comment on above: Order Comment: Speci men Type: BLOOD SPECIMENOrdering Facility: [facility] Address: [address] [place] [address] Performed By: #### 5 8410-2 ####[facility] LABORATORYCLIA [id number] [address] [place] Nucleated RBC (Bld) [#/Vol] 10*3/uL Normal <0.01 [facility] Comment on above: Order Comment: Speci men Type: BLOOD SPECIMENOrdering Facility: [facility] Address: [address] [place] [address] Performed By: #### 5 8410-2 ####[facility] LABORATORYCLIA [id number] [address] [place] Platelet mean volume (Bld) [Entitic vol] 9.8 fL Normal 9.0-12.7 [facility] Comment on above: Order Comment: Speci men Type: BLOOD SPECIMENOrdering Facility: [facility] Address: [address] [place] [address] Performed By: #### 5 8410-2 ####[facility] LABORATORYCLIA [id number] [address] [place] Platelets (Bld) [#/Vol] 281 10*3/uL Normal 150-400 [facility] Comment on above: Order Comment: Speci men Type: BLOOD SPECIMENOrdering Facility: [facility] Address: [address] [place] [address] Performed By: #### 5 8410-2 ####[facility] LABORATORYCLIA [id number] [address] [facility] RBC (Bld) [#/Vol] 3.26 10*6/uL Low 4.20-6.00 [facility] Comment on above: Order Comment: Speci men Type: BLOOD SPECIMENOrdering Facility: [facility] Address: [address] [place] [address] Performed By: #### 5 8410-2 ####[facility] LABORATORYCLIA [id number] [address] WBC (Bld) [#/Vol] 9.12 10*3/uL Normal 3.70-11.00 [facility] Comment on above: Order Comment: Speci men Type: BLOOD SPECIMENOrdering Facility: [facility] Address: [address] [place] [address] Performed By: #### 5 8410-2 ####[facility] LABORATORYCLIA [id number] [address] [facility] CONSULT PROGon 07-09-2021 CONSULT PROG Normal [facility] CONSULT PROG Normal [facility] HISTORY PHYSICALon HISTORY PHYSICAL Normal [facility] Magnesium SerPl-mCncon 07-09 Magnesium [Mass/Vol] 1.9 mg/dL Normal 1.7-2.3 [facility] Comment on above: Order Comment: Speci men Type: BLOOD SPECIMENOrdering Facility: [facility] Address: [address] [place] [address] Performed By: #### 1 9123-9, 2777-1, 49230-3 ####[facility] LABORATORYCLIA [id number] [address] Phosphate SerPl-mCncon 07-09 Phosphate [Mass/Vol] 3.6 mg/dL Normal 2.7-4.8 [facility] Comment on above: Order Comment: Speci men Type: BLOOD SPECIMENOrdering Facility: [facility] Address: [address] [place] [address] Performed By: #### 1 9123-9, 2777-1, 78038-9 ####[facility]CL[facility] [id number] [address] [place] THERAPY NTon 07-09-2021 THERAPY NT Normal [facility] XR ABDOMEN 1V SUPINEon 07-09 XR ABDOMEN 1V SUPINE Normal [facility] ALLIED HEALTHon 07-08-2021 ALLIED HEALTH Normal [facility] ALLIED HEALTH Normal [facility] ALLIED HEALTH Normal [facility] ANES PRE-OPon 07-08-2021 ANES PRE-OP Normal [facility] BRIEF OP NOTon 07-08-2021 BRIEF OP NOT Normal [facility] Bacteria Bld Culton 07-09-19 22 Bacteria identified Cx Nom (Bld) CULTURE, BLOOD: No growth 5 days Normal [facility] Comment on above: Performed By: #### 6 00-7 ####[facility] LABORATORYCLIA [id number] [address] [facility] Bacteria identified Cx Nom (Bld) CULTURE, BLOOD: No growth 5 days Normal [facility] Comment on above: Performed By: #### 6 00-7 ####[facility] LABORATORYCLIA [id number] [address] [place] Bacteria CSF Culton 07-09-19 22 Bacteria identified Cx Nom (CSF) CULTURE, CSF: No growth 14 days GRAM STAIN: No organisms seen No Polymorphonuclear Leukocytes Few Red Blood Cells Gram stain performed on cytospun specimen. [facility] Comment on above: Performed By: #### 6 06-4 ####[facility] LABORATORYCLIA [id number] [address] [place] Bacteria Ur Culton 2 Bacteria identified Cx Nom (U) ORGANISM ID: 1 10,000 -<50,000 CFU/ml Proteus species Insignificant colony count. No further workup. ORGANISM ID: 2 <10,000 CFU/ml Normal urogenital chris Normal [facility] Comment on above: Performed By: #### 6 30-4 ####[facility] LABORATORYCLIA [id number] [place] [address] [place] Bacteria Wnd Culton 07-09-19 22 Bacteria identified Cx Nom (Wound) ORGANISM ID: 1 Coagulase negative staphylococcus Growth in Enrichment Broth Only No susceptibility testing done. Call lab within 72 hours to initiate work-up if clinically indicated. GRAM STAIN: Account credited. Not performed on this specimen type. Normal [facility] Comment on above: Performed By: #### 6 462-6 ####[facility] LABORATORYCLIA [id number] [address] OF [facility] Bacteria identified Cx Nom (Wound) ORGANISM ID: 1 Rare Coagulase negative staphylococcus No susceptibility testing done. Call lab within 72 hours to initiate work-up if clinically indicated. GRAM STAIN: Account credited. Not performed on this specimen type. Normal [facility] Comment on above: Performed By: #### 6 462-6 ####[facility] LABORATORYCLIA [id number] [address] STATES [facility] Bacteria identified Cx Nom (Wound) CULTURE, INTRAOPERATIVE HARDWARE: No growth 14 days GRAM STAIN: Account credited. Not performed on this specimen type. Normal [facility] Comment on above: Performed By: #### 6 462-6 ####[facility] LABORATORYCLIA [id number] [place] [address] [place] Basic metabolic 2000 panelon 07-08-2021 Anion gap [Moles/Vol] 9 mmol/L Normal 9-18 [facility] Comment on above: Order Comment: Speci men Type: BLOOD SPECIMENOrdering Facility: [facility] Address: [address] [place] [address] Performed By: #### 2 4321-2 ####[facility] LABORATORYCLIA [id number] [place] [address] [place] Calcium [Mass/Vol] 8.5 mg/dL Normal 8.5-10.2 [facility] Comment on above: Order Comment: Speci men Type: BLOOD SPECIMENOrdering Facility: [facility] Address: [address] [place] [address] Performed By: #### 2 4321-2 ####[facility] LABORATORYCLIA [id number] [address] [place] Chloride [Moles/Vol] 98 mmol/L Normal 97-105 [facility] Comment on above: Order Comment: Speci men Type: BLOOD SPECIMENOrdering Facility: [facility] Address: [address] [place] [address] Performed By: #### 2 4321-2 ####[facility] LABORATORYCLIA [id number] [place] [address] [place] CO2 [Moles/Vol] 31 mmol/L High 22-30 [facility] Comment on above: Order Comment: Speci men Type: BLOOD SPECIMENOrdering Facility: [facility] [facility] Address: [address] [place] [address] Performed By: #### 2 4321-2 ####[facility] LABORATORYCLIA [id number] [address] [place] Creatinine [Mass/Vol] 0.64 mg/dL Low 0.73-1.22 [facility] Comment on above: Order Comment: Speci men Type: BLOOD SPECIMENOrdering Facility: [facility] Address: [address] [place] [address] Performed By: #### 2 4321-2 ####[facility] LABORATORYCLIA [id number] [address] ESTIMATED GLOMERULAR FILTRATION RATE 102 mL/min/1.73m??? Normal >=60 [facility] Comment on above: Order Comment: Speci men Type: BLOOD SPECIMENOrdering Facility: [facility] Address: [address] [place] [address] Result Comment: Luzmaria mated Glomerular Filtration Rate [...] actual GFR. Performed By: #### 2 4321-2 ####[facility] LABORATORYCLIA [id number] [place] [address] [place] Glucose [Mass/Vol] 114 mg/dL High 74-99 [facility] Comment on above: Order Comment: Shira feldman Type: BLOOD SPECIMENOrdering Facility: [facility] Address: [address] [address] Result Comment: The [place] Diabetes Association (ADA) provides guidance for cutoff [...] Standards of Medical Care in Diabetes 2016, [place] Diabetes Association. Diabetes Care. 2016.39(Suppl 1). Performed By: #### 2 4321-2 ####[facility] LABORATORYCLIA [id number] [place] [address] [place] Potassium [Moles/Vol] 3.4 mmol/L Low 3.7-5.1 [facility] Comment on above: Order Comment: Shira feldman Type: BLOOD SPECIMENOrdering Facility: [facility] Address: [address] [address] Performed By: #### 2 4321-2 ####[facility] LABORATORYCLIA [id number] [place] [address] [place] Sodium [Moles/Vol] 138 mmol/L Normal 136-144 [facility] Comment on above: Order Comment: Shira feldman Type: BLOOD SPECIMENOrdering Facility: [facility] Address: [address] [address] Performed By: #### 2 4321-2 ####[facility] LABORATORYCLIA [id number] [address] STATES [facility] Urea nitrogen [Mass/Vol] 14 mg/dL Normal 9-24 [facility] Comment on above: Order Comment: Speci men Type: BLOOD SPECIMENOrdering Facility: [facility] Address: [address] [place] [address] Performed By: #### 2 4321-2 ####[facility] LABORATORYCLIA [id number] [address] STATES OF [facility] CBC W Auto Differential pane l (Bld)on 07-08-2021 Basophils (Bld) [#/Vol] 0.05 10*3/uL Normal <0.11 [facility] Comment on above: Order Comment: Speci men Type: BLOOD SPECIMENOrdering Facility: [facility] Address: [address] [place] [address] Performed By: #### 5 7021-8 ####[facility] LABORATORYCLIA [id number] [address] STATES [facility] Basophils/100 WBC (Bld) 0.4 % Normal [facility] Comment on above: Order Comment: Speci men Type: BLOOD SPECIMENOrdering Facility: [facility] Address: [address] [place] [address] Performed By: #### 5 7021-8 ####[facility] LABORATORYCLIA [id number] [address] Differential cell count method Nom (Bld) Auto Normal [facility] Comment on above: Order Comment: Speci men Type: BLOOD SPECIMENOrdering Facility: [facility] Address: [address] [place] [address] Performed By: #### 5 7021-8 ####[facility] LABORATORYCLIA [id number] [address] [place] Eosinophils (Bld) [#/Vol] 0.68 10*3/uL High <0.46 [facility] Comment on above: Order Comment: Speci men Type: BLOOD SPECIMENOrdering Facility: [facility] Address: [address] [place] [address] Performed By: #### 5 7021-8 ####[facility] LABORATORYCLIA [id number] [address] Eosinophils/100 WBC (Bld) 5.4 % Normal [facility] Comment on above: Order Comment: Speci men Type: BLOOD SPECIMENOrdering Facility: [facility] Address: [address] [place] [address] Performed By: #### 5 7021-8 ####[facility] LABORATORYCLIA [id number] [address] Erythrocyte distribution width (RBC) [Ratio] 16.3 % High 11.5-15.0 [facility] Comment on above: Order Comment: Speci men Type: BLOOD SPECIMENOrdering Facility: [facility] Address: [address] [place] [address] Performed By: #### 5 7021-8 ####[facility] LABORATORYCLIA [id number] [address] Hematocrit (Bld) [Volume fraction] 35.7 % Low 39.0-51.0 [facility] Comment on above: Order Comment: Speci men Type: BLOOD SPECIMENOrdering Facility: [facility] Address: [address] [place] [address] Performed By: #### 5 7021-8 ####[facility] LABORATORYCLIA [id number] [address] Hemoglobin (Bld) [Mass/Vol] 10.8 g/dL Low 13.0-17.0 [facility] Comment on above: Order Comment: Speci men Type: BLOOD SPECIMENOrdering Facility: [facility] Address: [address] [place] [address] Performed By: #### 5 7021-8 ####[facility] LABORATORYCLIA [id number] [address] IMMATURE GRAN % 0.4 % Normal [facility] Comment on above: Order Comment: Speci men Type: BLOOD SPECIMENOrdering Facility: [facility] Address: [address] [place] [address] Performed By: #### 5 7021-8 ####[facility] LABORATORYCLIA [id number] [address] IMMATURE GRAN ABS 0.05 k/uL Normal <0.10 [facility] Comment on above: Order Comment: Speci men Type: BLOOD SPECIMENOrdering Facility: [facility] Address: [address] [place] [address] Performed By: #### 5 7021-8 ####[facility] LABORATORYCLIA [id number] [address] Lymphocytes (Bld) [#/Vol] 1.85 10*3/uL Normal 1.00-4.00 [facility] Comment on above: Order Comment: Speci men Type: BLOOD SPECIMENOrdering Facility: [facility] Address: [address] [place] [address] Performed By: #### 5 7021-8 ####[facility] LABORATORYCLIA [id number] [address] Lymphocytes/100 WBC (Bld) 14.7 % Normal [facility] Comment on above: Order Comment: Speci men Type: BLOOD SPECIMENOrdering Facility: [facility] Address: [address] [place] [address] Performed By: #### 5 7021-8 ####[facility] LABORATORYCLIA [id number] [address] [place] MCH (RBC) [Entitic mass] 27.1 pg Normal 26.0-34.0 [facility] Comment on above: Order Comment: Speci men Type: BLOOD SPECIMENOrdering Facility: [facility] Address: [address] [place] [address] Performed By: #### 5 7021-8 ####[facility] LABORATORYCLIA [id number] [address] OF [facility] MCHC (RBC) [Mass/Vol] 30.3 g/dL Low 30.5-36.0 [facility] Comment on above: Order Comment: Speci men Type: BLOOD SPECIMENOrdering Facility: [facility] Address: [address] [place] [address] Performed By: #### 5 7021-8 ####[facility] LABORATORYCLIA [id number] [address] MCV (RBC) [Entitic vol] 89.7 fL Normal 80.0-100.0 [facility] Comment on above: Order Comment: Speci men Type: BLOOD SPECIMENOrdering Facility: [facility] Address: [address] [place] [address] Performed By: #### 5 7021-8 ####[facility] LABORATORYCLIA [id number] [address] [place] Monocytes (Bld) [#/Vol] 0.87 10*3/uL High <0.87 [facility] Comment on above: Order Comment: Speci men Type: BLOOD SPECIMENOrdering Facility: [facility] Address: [address] [place] [address] Performed By: #### 5 7021-8 ####[facility] LABORATORYCLIA [id number] [address] [place] OF [facility] Monocytes/100 WBC (Bld) 6.9 % Normal [facility] Comment on above: Order Comment: Speci men Type: BLOOD SPECIMENOrdering Facility: [facility] Address: [address] [place] [address] Performed By: #### 5 7021-8 ####[facility] LABORATORYCLIA [id number] [address] [place] Neutrophils (Bld) [#/Vol] 9.05 10*3/uL High 1.45-7.50 [facility] Comment on above: Order Comment: Speci men Type: BLOOD SPECIMENOrdering Facility: [facility] Address: [address] [address] Performed By: #### 5 7021-8 ####[facility] LABORATORYCLIA [id number] [address] Neutrophils/100 WBC (Bld) 72.2 % Normal [facility] Comment on above: Order Comment: Speci men Type: BLOOD SPECIMENOrdering Facility: [facility] Address: [address] [place] [address] Performed By: #### 5 7021-8 ####[facility] LABORATORYCLIA [id number] [address] [place] Nucleated RBC (Bld) [#/Vol] 10*3/uL Normal <0.01 [facility] Comment on above: Order Comment: Speci men Type: BLOOD SPECIMENOrdering Facility: [facility] Address: [address] [place] [address] Performed By: #### 5 7021-8 ####[facility] LABORATORYCLIA [id number] [address] Nucleated RBC/100 WBC (Bld) [Ratio] 0.0 /100 WBC Normal [facility] Comment on above: Order Comment: Speci men Type: BLOOD SPECIMENOrdering Facility: [facility] Address: [address] [place] [address] Performed By: #### 5 7021-8 ####[facility] LABORATORYCLIA [id number] [address] [place] Platelet mean volume (Bld) [Entitic vol] 9.9 fL Normal 9.0-12.7 [facility] Comment on above: Order Comment: Speci men Type: BLOOD SPECIMENOrdering Facility: [facility] Address: [address] [place] [address] Performed By: #### 5 7021-8 ####[facility] LABORATORYCLIA [id number] [address] [place] Platelets (Bld) [#/Vol] 335 10*3/uL Normal 150-400 [facility] Comment on above: Order Comment: Speci men Type: BLOOD SPECIMENOrdering Facility: [facility] Address: [address] [place] [address] Performed By: #### 5 7021-8 ####[facility] LABORATORYCLIA [id number] [place] [address] [place] RBC (Bld) [#/Vol] 3.98 10*6/uL Low 4.20-6.00 [facility] Comment on above: Order Comment: Speci men Type: BLOOD SPECIMENOrdering Facility: [facility] Address: [address] [place] [address] Performed By: #### 5 7021-8 ####[facility] LABORATORYCLIA [id number] [place] [address] [facility] WBC (Bld) [#/Vol] 12.55 10*3/uL High 3.70-11.00 [facility] Comment on above: Order Comment: Speci men Type: BLOOD SPECIMENOrdering Facility: [facility] Address: [address] [place] [address] Performed By: #### 5 7021-8 ####[facility] LABORATORYCLIA [id number] [address] [place] CK CREATINE KINASEon 022 CK [Catalytic activity/Vol] 72 U/L Normal 51-298 [facility] Comment on above: Order Comment: Speci men Type: BLOOD SPECIMENOrdering Facility: [facility] Address: [address] [place] [address] Performed By: #### C K, 67869-2 ####[facility] LABORATORYCLIA [id number] [address] [place] CONSULT PROGon 07-08-2021 CONSULT PROG Normal [facility] CONSULT PROG Normal [facility] CSF MANUAL DIFFon 07-08-2021 DIF TTL, CSF 3 cells counted Normal [facility] Comment on above: Order Comment: Speci men Type: CEREBROSPINAL FLUIDOrdering Facility: [facility] Address: [address] [place] [address] Performed By: #### 3 4563-7, [id number] ####[facility] LABORATORYCLIA [id number] [place] [address] [place] LYMPH%, CSF 33 % Low 50-90 [facility] Comment on above: Order Comment: Speci men Type: CEREBROSPINAL FLUIDOrdering Facility: [facility] Address: [address] [place] [address] Performed By: #### 3 4563-7, [id number] ####[facility] LABORATORYCLIA [id number] [place] [address] [place] MONO%, CSF 67 % High 10-50 [facility] Comment on above: Order Comment: Speci men Type: CEREBROSPINAL FLUIDOrdering Facility: [facility] Address: [address] [place] [address] Performed By: #### 3 4563-7, [id number] ####[facility] LABORATORYCLIA [id number] [place] [address] [place] ABD/PEL W IVCONon 022 CT ABD/PEL W IVCON Normal [facility] CT BRAIN WO IVCONon 07-09-[address] BRAIN WO IVCON Normal [facility] CT BRAIN WO IVCON Normal [facility] CT CHEST W IVCON PEon 2021 CT CHEST W IVCON PE Normal [facility] Cell count panel (CSF)on Clarity (CSF) Clear Normal Clear [facility] Comment on above: Order Comment: Speci men Type: CEREBROSPINAL FLUIDOrdering Facility: [facility] Address: [address] [place] [address] Performed By: #### 3 4563-7, [id number] ####[facility]ATORYCLIA [id number] [address] [place] Clarity (Unsp spec) Clear Normal Clear [facility] Comment on above: Order Comment: Speci men Type: CEREBROSPINAL FLUIDOrdering Facility: [facility] Address: [address] [address] Performed By: #### 3 4563-7, [id number] ####[facility]ORATORYCLIA [id number] [address] Color (CSF) Colorless Normal Colorless [facility] Comment on above: Order Comment: Speci men Type: CEREBROSPINAL FLUIDOrdering Facility: [facility] Address: [address] [place] [address] Performed By: #### 3 4563-7, [id number] ####[facility]ORATORYCLIA [id number] [address] Color (Spun CSF) Colorless Normal Colorless [facility] Comment on above: Order Comment: Speci men Type: CEREBROSPINAL FLUIDOrdering Facility: [facility] Address: [address] [place] [address] Performed By: #### 3 4563-7, [id number] ####[facility]ORATORYCLIA [id number] [address] CSF [employer] Normal [facility] Comment on above: Order Comment: Speci men Type: CEREBROSPINAL FLUIDOrdering Facility: [facility] Address: [address] [place] [address] Performed By: #### 3 4563-7, [id number] ####[facility]ORATORYCLIA [id number] [address] RBC Manual cnt (CSF) [#/Vol] 94 cells/uL High 0-5 [facility] Comment on above: Order Comment: Speci men Type: CEREBROSPINAL FLUIDOrdering Facility: [facility] Address: [facility] [address] Performed By: #### 3 4563-7, [id number] ####[facility]ORATORYCLIA [id number] [address] [place] WBC Manual cnt (CSF) [#/Vol] 1 cells/uL Normal 0-5 [facility] Comment on above: Order Comment: Speci men Type: CEREBROSPINAL FLUIDOrdering Facility: [facility] Address: [address] [address] Performed By: #### 3 4563-7, [id number] ####[facility] LABORATORYCLIA [id number] [address] [facility] Comprehensive metabolic 2000 panelon 07-08-2021 Albumin [Mass/Vol] 3.6 g/dL Low 3.9-4.9 [facility] Comment on above: Order Comment: Speci men Type: BLOOD SPECIMENOrdering Facility: [facility] Address: [address] [place] [address] Performed By: #### Eileen Valdivia, 22585-1 ####[facility] LABORATORYCLIA [id number] [address] [place] ALP [Catalytic activity/Vol] 125 U/L High 38-113 [facility] Comment on above: Order Comment: Speci men Type: BLOOD SPECIMENOrdering Facility: [facility] Address: [address] [address] Performed By: #### Eileen Valdivia, 17334-0 ####[facility] LABORATORYCLIA [id number] [address] [facility] ALT With P-5'-P [Catalytic activity/Vol] 24 U/L Normal 10-54 [facility] Comment on above: Order Comment: Speci men Type: BLOOD SPECIMENOrdering Facility: [facility] Address: [address] [address] Performed By: #### Eileen Valdivia, 40789-6 ####[facility] LABORATORYCLIA [id number] [address] OF [facility] Anion gap [Moles/Vol] 16 mmol/L Normal 9-18 [facility] Comment on above: Order Comment: Speci men Type: BLOOD SPECIMENOrdering Facility: [facility] Address: [address] [address] Performed By: #### Eileen Valdivia, 97174-1 ####[facility]ORATORYCLIA [id number] [place] [address] [place] AST With P-5'-P [Catalytic activity/Vol] 21 U/L Normal 14-40 [facility] Comment on above: Order Comment: Speci men Type: BLOOD SPECIMENOrdering Facility: [facility] Address: [address] [place] [address] Performed By: #### Eileen Valdivia, 06854-7 ####[facility]ORATORYCLIA [id number] [place] [address] [place] Bilirubin [Mass/Vol] 0.3 mg/dL Normal 0.2-1.3 [facility] Comment on above: Order Comment: Speci men Type: BLOOD SPECIMENOrdering Facility: [facility] Address: [address] [place] [address] Performed By: #### Eileen Valdivia, 84871-7 ####[facility] LABORATORYCLIA [id number] [address] [place] OF [facility] Calcium [Mass/Vol] 8.9 mg/dL Normal 8.5-10.2 [facility] Comment on above: Order Comment: Speci men Type: BLOOD SPECIMENOrdering Facility: [facility] Address: [address] [place] [address] Performed By: #### Eileen Valdivia, 47562-2 ####[facility]ORATORYCLIA [id number] [place] [address] [place] Chloride [Moles/Vol] 96 mmol/L Low 97-105 [facility] Comment on above: Order Comment: Speci men Type: BLOOD SPECIMENOrdering Facility: [facility] Address: [address] [place] [address] Performed By: #### Eileen Valdivia, 87980-9 ####[facility]ORATORYCLIA [id number] [address] [place] CO2 [Moles/Vol] 27 mmol/L Normal 22-30 [facility] Comment on above: Order Comment: Speci men Type: BLOOD SPECIMENOrdering Facility: [facility] Address: [address] [address] Performed By: #### C K, 80074-7 ####[facility] LABORATORYCLIA [id number] [place] [id number] [place] OF [facility] Creatinine [Mass/Vol] 0.68 mg/dL Low 0.73-1.22 [facility] Comment on above: Order Comment: Speci men Type: BLOOD SPECIMENOrdering Facility: [facility] Address: [address] [place] [address] Performed By: #### C K, 06366-0 ####[facility] LABORATORYCLIA [id number] [address] ESTIMATED GLOMERULAR FILTRATION RATE 101 mL/min/1.73m??? Normal >=60 [facility] Comment on above: Order Comment: Speci men Type: BLOOD SPECIMENOrdering Facility: [facility] Address: [address] [place] [address] Result Comment: Luzmaria mated Glomerular Filtration Rate [...] actual GFR. Performed By: #### C Skip, 87281-4 ####[facility] LABORATORYCLIA [id number] [place] [id number] [place] Glucose [Mass/Vol] 130 mg/dL High 74-99 [facility] Comment on above: Order Comment: Speci men Type: BLOOD SPECIMENOrdering Facility: [facility] Address: [address] [place] [address] Result Comment: The [place] Diabetes Association (ADA) provides guidance for cutoff [...] Standards of Medical Care in Diabetes 2016, [place] Diabetes Association. Diabetes Care. 2016.39(Suppl 1). Performed By: #### C Skip, 14043-1 ####[facility] LABORATORYCLIA [id number] [address] [place] OF [facility] Potassium [Moles/Vol] 3.9 mmol/L Normal 3.7-5.1 [facility] Comment on above: Order Comment: Shira feldman Type: BLOOD SPECIMENOrdering Facility: [facility] Address: [address] [place] [address] Performed By: #### Eileen Valdivia, 69234-9 ####[facility] LABORATORYCLIA [id number] [place] [address] [place] Protein [Mass/Vol] 7.0 g/dL Normal 6.3-8.0 [facility] Comment on above: Order Comment: Johni francia Type: BLOOD SPECIMENOrdering Facility: [facility] Address: [address] [place] [address] Performed By: #### Eileen Valdivia, 87675-4 ####[facility] LABORATORYCLIA [id number] [address] [place] Sodium [Moles/Vol] 139 mmol/L Normal 136-144 [facility] Comment on above: Order Comment: Speci men Type: BLOOD SPECIMENOrdering Facility: [facility] Address: [address] [place] [address] Performed By: #### Eileen Valdivia, 19648-2 ####[facility] LABORATORYCLIA [id number] [address] [place] Urea nitrogen [Mass/Vol] 16 mg/dL Normal 9-24 [facility] Comment on above: Order Comment: Johni men Type: BLOOD SPECIMENOrdering Facility: [facility] Address: [address] [place] [phone] Performed By: #### C K, 99835-4 ####[facility] LABORATORYIA [id number] [place] [address] [facility] ED NOTEon 07-08-2021 ED NOTE HNO ID: [id number] Author: Lenora James RN Service: Emergency Medicine Author Type: Registered Nurse Type: ED Notes Filed: 07/08/2021 5:03 PM Note Text: Pt to OR with surgical team [facility] ED NOTE HNO ID: [id number] Author: Lenora James RN Service: Emergency Medicine Author Type: Registered Nurse Type: ED Notes Filed: 07/08/2021 4:50 PM Note Text: OR team to get pt [facility] ED NOTE HNO ID: [id number] Author: Lenora James RN Service: Emergency Medicine Author Type: Registered Nurse Type: ED Notes Filed: 07/08/2021 4:50 PM Note Text: [facility] ED NOTE HNO ID: [id number] Author: Lenora James RN Service: Emergency Medicine Author Type: Registered Nurse Type: ED Notes Filed: 07/08/2021 4:50 PM Note Text: Spoke with presurg; pt to go to OR now [facility] ED NOTE HNO ID: [id number] Author: Lenora James RN Service: Emergency Medicine Author Type: Registered Nurse Type: ED Notes Filed: 07/08/2021 4:12 PM Note Text: Neurosurgery at beside [facility] ED NOTE HNO ID: [id number] Author: Lenora James RN Service: Emergency Medicine Author Type: Registered Nurse Type: ED Notes Filed: 07/08/2021 2:35 PM Note Text: respiratory aware of pt breathing treatments [facility] ED NOTE HNO ID: [id number] Author: Lisa Woo RN Service: ? Author Type: Registered Nurse Type: ED Notes Filed: 07/08/2021 2:20 PM Note Text: Xray notified pt is ready. [facility] ED NOTE HNO ID: [id number] Author: Lenora James RN Service: Emergency Medicine Author Type: Registered Nurse Type: ED Notes Filed: 07/08/2021 12:14 PM Note Text: CT notified regarding imaging orders placed Normal [facility] ED NOTE Normal [facility] ED PROV NOTEon 07-08-2021 ED PROV NOTE Normal [facility] Glucose CSF-mCncon 2 Glucose (CSF) [Mass/Vol] 88 mg/dL High 40-70 [facility] Comment on above: Order Comment: Shira feldman Type: CEREBROSPINAL FLUIDOrdering Facility: [facility] Address: [address] [place] [address] Result Comment: Lumb ar CSF glucose values of healthy patients are approximately 60% of the plasma values and must always be compared with a concurrently measured plasma value for adequate clinical interpretation.References: 1. Glucose HK (GLUC3) [package insert V 12.0 American]. [employer], [place], [place]. September 2015. 2. Michelle Moore, Loki HGarfield (2015). Chapter 7: Glucose and Lactate. FGarfield Alcocer al.(eds.), Cerebrospinal Fluid in Clinical Neurology. [place]: [employer]. Performed By: #### 2 880-3, 2342-4 ####[facility] CARMELCLIA [id number] [address] STATES OF [facility] HIGH SENSITIVITY TROPONIN To n 07-08-2021 HIGH SENSITIVITY TAMIKO 27 ng/L High <12 [facility] Comment on above: Order Comment: Shira feldman Type: BLOOD SPECIMENOrdering Facility: [facility] Address: [address] [place] [address] Result Comment: When assessing risk for acute [...] day MACE. Performed By: #### H STNT ####[facility] LABORATORYCLIA [id number] [place] [address] [place] HIGH SENSITIVITY TAMIKO 36 ng/L High <12 [facility] Comment on above: Order Comment: Speci men Type: BLOOD SPECIMENOrdering Facility: [facility] Address: [address] [place], [place] [address] [phone] Result Comment: When assessing risk for acute [...] day MACE. Performed By: #### H STNT ####[facility] LABORATORYCLIA [id number] [address] STATES OF [facility] HISTORY PHYSICALon 2 HISTORY PHYSICAL Normal [facility] NURSING PROGon 07-08-2021 NURSING PROG Normal [facility] OPERATIVE NOon 07-08-2021 OPERATIVE NO Normal [facility] Prot CSF-mCncon 07-08-2021 Protein (CSF) [Mass/Vol] 33 mg/dL Normal 15-45 [facility] Comment on above: Order Comment: Speci men Type: CEREBROSPINAL FLUIDOrdering Facility: [facility] Address: [facility] [place] [phone] Performed By: #### 2 880-3, 2342-4 ####[facility] LABORATORYCLIA [id number] [address] [place] SARS-CoV-2 RNA Resp Ql MEGAN+p robeon 07-08-2021 SARS-CoV-2 (COVID-19) RNA MEGAN+probe Ql (Resp) COVID 19 RESULT: SARS-CoV-2 (Agent of COVID-19) Not Detected by RT-PCR or equivalent method. This test has been authorized by FDA under an Emergency Use Authorization (EUA). Normal [facility] Comment on above: Performed By: #### 9 4500-6 ####[facility] LABORATORYCLIA [id number] [address] [place] STAPH AUREUS PCRon 2 S. aureus and MRSA panel MEGAN+probe (Nose) Normal Negative [facility] Comment on above: Order Comment: Speci men Type: SWAB OF INTERNAL NOSEOrdering Facility: [facility] Address: [address] [place] [address] Result Comment: Nega tive for Staphylococcus aureus by PCR.Negative for MRSA by PCR Performed By: #### S APCR ####[facility] LABORATORYCLIA [id number] [address] Urinalysis complete panel (U )on 07-08-2021 Bacteria LM.HPF (Urine sed) [#/Area] Few Abnormal None Seen [facility] Comment on above: Order Comment: Speci men Type: URINE SPECIMENOrdering Facility: [facility] Address: [address] [place] [address] Performed By: #### 2 4356-8 ####[facility] LABORATORYCLIA [id number] [address] Bilirubin Ql (U) Negative Normal Negative [facility] Comment on above: Order Comment: Speci men Type: URINE SPECIMENOrdering Facility: [facility] Address: [address] [place] [address] Performed By: #### 2 4356-8 ####[facility] LABORATORYCLIA [id number] [address] Clarity (Unsp spec) Turbid Abnormal Clear [facility] Comment on above: Order Comment: Speci men Type: URINE SPECIMENOrdering Facility: [facility] Address: [address] [place] [address] Performed By: #### 2 4356-8 ####[facility] LABORATORYCLIA [id number] [address] Color (U) Light Yellow Normal yellow [facility] Comment on above: Order Comment: Speci men Type: URINE SPECIMENOrdering Facility: [facility] Address: [address] [place] [address] Performed By: #### 2 4356-8 ####[facility] LABORATORYCLIA [id number] [address] Glucose Test strip (U) [Mass/Vol] Negative Normal Negative [facility] Comment on above: Order Comment: Speci men Type: URINE SPECIMENOrdering Facility: [facility] Address: [address] [place] [address] Performed By: #### 2 4356-8 ####[facility] LABORATORYCLIA [id number] [address] STATES [facility] Hemoglobin Ql (U) Negative Normal Negative [facility] Comment on above: Order Comment: Speci men Type: URINE SPECIMENOrdering Facility: [facility] Address: [address] [place] [address] Performed By: #### 2 4356-8 ####[facility] LABORATORYCLIA [id number] [address] Hyaline casts (Urine sed) [#/Area] 1-3 /LPF Abnormal 0 /LPF [facility] Comment on above: Order Comment: Speci men Type: URINE SPECIMENOrdering Facility: [facility] Address: [address] [place] [address] Performed By: #### 2 4356-8 ####[facility] LABORATORYCLIA [id number] [address] Ketones Ql (U) Negative Normal Negative [facility] Comment on above: Order Comment: Speci men Type: URINE SPECIMENOrdering Facility: [facility] Address: [address] [place] [address] Performed By: #### 2 4356-8 ####[facility] LABORATORYCLIA [id number] [address] Leukocyte esterase Test strip Ql (U) Negative Normal Negative [facility] Comment on above: Order Comment: Speci men Type: URINE SPECIMENOrdering Facility: [facility] Address: [address] [place] [address] Performed By: #### 2 4356-8 ####[facility] LABORATORYCLIA [id number] [place] [address] [place] Nitrite Ql (U) Negative Normal Negative [facility] Comment on above: Order Comment: Speci men Type: URINE SPECIMENOrdering Facility: [facility] Address: [address] [place] [address] Performed By: #### 2 4356-8 ####[facility] LABORATORYCLIA [id number] [place] [address] [place] pH (U) 5.0 [pH] Normal 5.0-8.0 [facility] Comment on above: Order Comment: Speci men Type: URINE SPECIMENOrdering Facility: [facility] Address: [address] [place] [address] Performed By: #### 2 4356-8 ####[facility] LABORATORYCLIA [id number] [address] STATES [facility] Protein (U) [Mass/Vol] Negative Normal Negative [facility] Comment on above: Order Comment: Speci men Type: URINE SPECIMENOrdering Facility: [facility] Address: [address] [place] [address] Performed By: #### 2 4356-8 ####[facility] LABORATORYCLIA [id number] [address] [place] RBC LM.HPF (Urine sed) [#/Area] 11-25 /HPF Abnormal 0-3 /HPF [facility] Comment on above: Order Comment: Speci men Type: URINE SPECIMENOrdering Facility: [facility] Address: [address] [place] [address] Performed By: #### 2 4356-8 ####[facility] LABORATORYCLIA [id number] [address] [place] Specific gravity (U) [Rel density] 1.018 Normal 1.005-1.030 [facility] Comment on above: Order Comment: Speci men Type: URINE SPECIMENOrdering Facility: [facility] Address: [address] [place] [address] Performed By: #### 2 4356-8 ####[facility] LABORATORYCLIA [id number] [address] Urobilinogen Ql (U) Normal Normal Negative [facility] Comment on above: Order Comment: Speci men Type: URINE SPECIMENOrdering Facility: [facility] Address: [address] [place] [address] Performed By: #### 2 4356-8 ####[facility] LABORATORYCLIA [id number] [address] WBC LM.HPF (Urine sed) [#/Area] /[HPF] Abnormal 0-5 /HPF [facility] Comment on above: Order Comment: Speci men Type: URINE SPECIMENOrdering Facility: [facility] Address: [address] [place] [address] Performed By: #### 2 4356-8 ####[facility] LABORATORYCLIA [id number] [address] Vancomycin random [Mass/Vol] on 07-08-2021 Vancomycin [Mass/Vol] 31.0 ug/mL High 10.0-20.0 [facility] Comment on above: Order Comment: Speci men Type: BLOOD SPECIMENOrdering Facility: [facility] Address: [address] [place] [address] Result Comment: Refe rence ranges and high/low indicator flags are provided as general guidelines only. The treating physician must determine appropriate target levels/dosing based on the specific clinical situation. Performed By: #### 4 091-5 ####[facility] LABORATORYCLIA [id number] [address] [facility] XR ABD 2V SUPINE W UPR/DECUB /CTLon 07-08-2021 XR ABD 2V SUPINE W UPR/DECUB/CTL Normal [facility] XR CHEST 1V FRONTALon 2021 XR CHEST 1V FRONTAL Normal [facility] XR CHEST 1V FRONTAL Normal [facility] XR NECK SOFT TISSUE 2V AP/LA Ton 07-08-2021 XR NECK SOFT TISSUE 2V AP/LAT Normal [facility] XR SKULL 2V AP/LATon 022 XR SKULL 2V AP/LAT Normal [facility] HISTORY PHYSICALon HISTORY PHYSICAL HNO ID: [id number] Author: Amy Beltran MD Service: ? Author Type: Physician Type: HANDP Filed: 06/30/2021 6:42 PM Note Text: Connected Care Unit History and Physical Facility: [place] Level of Care: Skilled Admission Date: June [...] regarding the above plan. Total time spent [id number] and/or counseling and coordinating care on the skilled care unit for patient was approximately 45 minutes SUBJECTIVE (HISTORY) Chief Complaint: Confusion, infection, blood clot. Andrew Sifuentes is being seen today for snf facility (SNF) admission AND management of weakness, tube feed, infected retroperitoneal infection and seizure. HPI: This is a 71 year old male who presents from [facility] with primary admitting diagnosis of [...] CT brain concerning for hydrocephalus. Tip of PROVIDER SCRIBE shunt was found to be in the [...] Status: Fu (more content not included)... Normal [facility] Basic metabolic 2000 panelon 06-28-2021 Anion gap [Moles/Vol] 7 mmol/L Low 9-18 [facility] Comment on above: Order Comment: Johni francia Type: BLOOD SPECIMENOrdering Facility: [facility] Address: [address] [place] [address] Performed By: #### 2 4320-06, ####[facility] LABORATORYCLIA [id number] [place] [address] [place] [address] [facility] Calcium [Mass/Vol] 8.8 mg/dL Normal 8.5-10.2 [facility] Comment on above: Order Comment: Shira feldman Type: BLOOD SPECIMENOrdering Facility: [facility] Address: [address] [place] [address] Performed By: #### 2 4320-06, ####[facility] LABORATORYCLIA [id number] [place] [address] [place] [address] [facility] Chloride [Moles/Vol] 103 mmol/L Normal 97-105 [facility] Comment on above: Order Comment: Johni men Type: BLOOD SPECIMENOrdering Facility: [facility] Address: [address] [place] [address] Performed By: #### 2 4320-06, ####[facility] LABORATORYCLIA [id number] [place] [address] [place] CO2 [Moles/Vol] 28 mmol/L Normal 22-30 [facility] Comment on above: Order Comment: Shira francia Type: BLOOD SPECIMENOrdering Facility: [facility] Address: [address] [place] [address] Performed By: #### 2 4321-2, ####[facility] LABORATORYCLIA [id number] [place] [address] [place] Creatinine [Mass/Vol] 0.57 mg/dL Low 0.73-1.22 [facility] Comment on above: Order Comment: Shira francia Type: BLOOD SPECIMENOrdering Facility: [facility] Address: [address] [place] [address] Performed By: #### 2 4321-2, ####[facility] LABORATORYCLIA [id number] [address] [place] GFR/1.73 sq M.predicted MDRD (S/P/Bld) [Vol rate/Area] mL/min/{1.73_m2} Normal [facility] Comment on above: Order Comment: Johncara feldman Type: BLOOD SPECIMENOrdering Facility: [facility] Address: [address] [place] [address] Result Comment: >60e GFR (Estimated GFR) Units [...] actual GFR. Performed By: #### 2 4321-, ####[facility] LABORATORYCLIA [id number] [place] [address] [place] Glucose [Mass/Vol] 120 mg/dL High 74-99 [facility] Comment on above: Order Comment: Speci men Type: BLOOD SPECIMENOrdering Facility: [facility] Address: [address] [place], [place] [phone] Result Comment: The [place] Diabetes Association (ADA) provides guidance for cutoff [...] Standards of Medical Care in Diabetes 2016, [place] Diabetes Association. Diabetes Care. 2016.39(Suppl 1). Performed By: #### 2 4320-06, ####[facility] LABORATORYCLIA [id number] [place] [address] [place] Potassium [Moles/Vol] 3.8 mmol/L Normal 3.7-5.1 [facility] Comment on above: Order Comment: Shira feldman Type: BLOOD SPECIMENOrdering Facility: [facility] Address: [address] [phone] Performed By: #### 2 4320-06, ####[facility] LABORATORYCLIA [id number] [place] [address] [place] Sodium [Moles/Vol] 138 mmol/L Normal 136-144 [facility] Comment on above: Order Comment: Johni men Type: BLOOD SPECIMENOrdering Facility: [facility] Address: [address] [phone] Performed By: #### 2 4320-06, ####[facility] LABORATORYCLIA [id number] [place] [address] [place] Urea nitrogen [Mass/Vol] 24 mg/dL Normal 9-24 [facility] Comment on above: Order Comment: Johni men Type: BLOOD SPECIMENOrdering Facility: [facility] Address: [address] [place] [address] Performed By: #### 2 4321-2, 18551-9 ####[facility] LABORATORYCLIA [id number] [address] CASE MANAGEMon 06-28-2021 CASE MANAGEM Normal [facility] CBC panel Auto (Bld)on 06-28 Erythrocyte distribution width (RBC) [Ratio] 15.6 % High 11.5-15.0 [facility] Comment on above: Order Comment: Speci men Type: BLOOD SPECIMENOrdering Facility: [facility] Address: [address] [place] [address] Performed By: #### 5 8410-2 ####[facility] LABORATORYCLIA [id number] [address] STATES [facility] Hematocrit (Bld) [Volume fraction] 30.5 % Low 39.0-51.0 [facility] Comment on above: Order Comment: Speci men Type: BLOOD SPECIMENOrdering Facility: [facility] Address: [address] [place] [address] Performed By: #### 5 8410-2 ####[facility] LABORATORYCLIA [id number] [address] Hemoglobin (Bld) [Mass/Vol] 9.4 g/dL Low 13.0-17.0 [facility] Comment on above: Order Comment: Speci men Type: BLOOD SPECIMENOrdering Facility: [facility] Address: [address] [place] [address] Performed By: #### 5 8410-2 ####[facility] LABORATORYCLIA [id number] [address] MCH (RBC) [Entitic mass] 27.8 pg Normal 26.0-34.0 [facility] Comment on above: Order Comment: Speci men Type: BLOOD SPECIMENOrdering Facility: [facility] Address: [address] [place] [address] Performed By: #### 5 8410-2 ####[facility] LABORATORYCLIA [id number] [address] STATES [facility] MCHC (RBC) [Mass/Vol] 30.8 g/dL Normal 30.5-36.0 [facility] Comment on above: Order Comment: Speci men Type: BLOOD SPECIMENOrdering Facility: [facility] Address: [address] [place] [address] Performed By: #### 5 8410-2 ####[facility] LABORATORYCLIA [id number] [address] [place] MCV (RBC) [Entitic vol] 90.2 fL Normal 80.0-100.0 [facility] Comment on above: Order Comment: Speci men Type: BLOOD SPECIMENOrdering Facility: [facility] Address: [address] [place] [address] Performed By: #### 5 8410-2 ####[facility] LABORATORYCLIA [id number] [address] Nucleated RBC (Bld) [#/Vol] 10*3/uL Normal <0.01 [facility] Comment on above: Order Comment: Speci men Type: BLOOD SPECIMENOrdering Facility: [facility] Address: [address] [place] [address] Performed By: #### 5 8410-2 ####[facility] LABORATORYCLIA [id number] [address] [place] Platelet mean volume (Bld) [Entitic vol] 9.9 fL Normal 9.0-12.7 [facility] Comment on above: Order Comment: Speci men Type: BLOOD SPECIMENOrdering Facility: [facility] Address: [address] [place] [address] Performed By: #### 5 8410-2 ####[facility] LABORATORYCLIA [id number] [address] [place] Platelets (Bld) [#/Vol] 333 10*3/uL Normal 150-400 [facility] Comment on above: Order Comment: Speci men Type: BLOOD SPECIMENOrdering Facility: [facility] Address: [address] [place] [address] Performed By: #### 5 8410-2 ####[facility] LABORATORYCLIA [id number] [address] RBC (Bld) [#/Vol] 3.38 10*6/uL Low 4.20-6.00 [facility] Comment on above: Order Comment: Speci men Type: BLOOD SPECIMENOrdering Facility: [facility] Address: [address] [place] [address] Performed By: #### 5 8410-2 ####[facility] LABORATORYCLIA [id number] [address] WBC (Bld) [#/Vol] 9.71 10*3/uL Normal 3.70-11.00 [facility] Comment on above: Order Comment: Speci men Type: BLOOD SPECIMENOrdering Facility: [facility] Address: [address] [place] [address] Performed By: #### 5 8410-2 ####[facility] LABORATORYCLIA [id number] [address] CNDSon 06-28-2021 CNDS Normal [facility] CONSULT PROGon 06-28-2021 CONSULT PROG Normal [facility] Magnesium SerPl-mCncon 06-28 Magnesium [Mass/Vol] 2.2 mg/dL Normal 1.7-2.3 [facility] Comment on above: Order Comment: Speci men Type: BLOOD SPECIMENOrdering Facility: [facility] Address: [address] [place] [address] Performed By: #### 2 4321-2, 00842-4 ####[facility] LABORATORYCLIA [id number] [address] [facility] Vancomycin random [Mass/Vol] on 06-28-2021 Vancomycin [Mass/Vol] 23.0 ug/mL High 10.0-20.0 [facility] Comment on above: Order Comment: Speci men Type: BLOOD SPECIMENOrdering Facility: [facility] Address: [address] [place] [address] Result Comment: Refe rence ranges and high/low indicator flags are provided as general guidelines only. The treating physician must determine appropriate target levels/dosing based on the specific clinical situation. Performed By: #### 4 091-5 ####[facility]ATORYCLIA [id number] [place] [address] [place] ALLIED HEALTHon 06-27-2021 ALLIED HEALTH Normal [facility] Basic metabolic 2000 panelon 06-27-2021 Anion gap [Moles/Vol] 10 mmol/L Normal 9-18 [facility] Comment on above: Order Comment: Speci men Type: BLOOD SPECIMENOrdering Facility: [facility] Address: [address] [place] [address] Performed By: #### 2 432-2, ####[facility] LABORATORYCLIA [id number] [place] [address] [place] Calcium [Mass/Vol] 8.8 mg/dL Normal 8.5-10.2 [facility] Comment on above: Order Comment: Speci men Type: BLOOD SPECIMENOrdering Facility: [facility] Address: [address] [place] [address] Performed By: #### 2 4321-2, ####[facility] LABORATORYCLIA [id number] [place] [address] [place] Chloride [Moles/Vol] 104 mmol/L Normal 97-105 [facility] Comment on above: Order Comment: Speci men Type: BLOOD SPECIMENOrdering Facility: [facility] Address: [address] [place] [place] [address] Performed By: #### 2 4321-2, ####[facility] LABORATORYCLIA [id number] [place] [address] [place] CO2 [Moles/Vol] 26 mmol/L Normal 22-30 [facility] Comment on above: Order Comment: Speci francia Type: BLOOD SPECIMENOrdering Facility: [facility] Address: [address] [place], [place] [address] Performed By: #### 2 432-, ####[facility] LABORATORYCLIA [id number] [place] [address] [place] Creatinine [Mass/Vol] 0.57 mg/dL Low 0.73-1.22 [facility] Comment on above: Order Comment: Speci men Type: BLOOD SPECIMENOrdering Facility: [facility] Address: [address] [place] [address] Performed By: #### 2 43205-08, ####[facility] [id number] [place] [address] [place] GFR/1.73 sq M.predicted MDRD (S/P/Bld) [Vol rate/Area] mL/min/{1.73_m2} Normal [facility] Comment on above: Order Comment: Speccara feldman Type: BLOOD SPECIMENOrdering Facility: [facility] Address: [address] [place] [address] Result Comment: >60e GFR (Estimated GFR) Units [...] actual GFR. Performed By: #### 2 432-, ####[facility] LABORATORYCLIA [id number] [place] [address] [place] Glucose [Mass/Vol] 133 mg/dL High 74-99 [facility] Comment on above: Order Comment: Speci men Type: BLOOD SPECIMENOrdering Facility: [facility] Address: [address] [id number] Result Comment: [place] Diabetes Association (ADA) provides guidance for cutoff [...] Standards of Medical Care in Diabetes 2016, [place] Diabetes Association. Diabetes Care. 2016.39(Suppl 1). Performed By: #### 2 432-, ####[facility] LABORATORYCLIA [id number] [place] [address] [place] Potassium [Moles/Vol] 4.2 mmol/L Normal 3.7-5.1 [facility] Comment on above: Order Comment: Speci men Type: BLOOD SPECIMENOrdering Facility: [facility] Address: [address] [address] Performed By: #### 2 4320-06, ####[facility] LABORATORYCLIA [id number] [place] [address] [place] Sodium [Moles/Vol] 140 mmol/L Normal 136-144 [facility] Comment on above: Order Comment: Speci men Type: BLOOD SPECIMENOrdering Facility: [facility] Address: [address] Performed By: #### 2 4320-06, ####[facility] LABORATORYCLIA [id number] [place] [address] [place] Urea nitrogen [Mass/Vol] 24 mg/dL Normal 9-24 [facility] Comment on above: Order Comment: Speci men Type: BLOOD SPECIMENOrdering Facility: [facility] Address: [address] Performed By: #### 2 4321-2, 56362-2 ####[facility] LABORATORYCLIA [id number] [address] CASE MANAGEMon 06-27-2021 CASE MANAGEM Normal [facility] CBC panel Auto (Bld)on 06-27 Erythrocyte distribution width (RBC) [Ratio] 15.8 % High 11.5-15.0 [facility] Comment on above: Order Comment: Speci men Type: BLOOD SPECIMENOrdering Facility: [facility] Address: [address] [place] [address] Performed By: #### 5 8410-2 ####[facility] LABORATORYCLIA [id number] [address] Hematocrit (Bld) [Volume fraction] 31.4 % Low 39.0-51.0 [facility] Comment on above: Order Comment: Speci men Type: BLOOD SPECIMENOrdering Facility: [facility] Address: [address] [place] [address] Performed By: #### 5 8410-2 ####[facility] LABORATORYCLIA [id number] [address] Hemoglobin (Bld) [Mass/Vol] 9.3 g/dL Low 13.0-17.0 [facility] Comment on above: Order Comment: Speci men Type: BLOOD SPECIMENOrdering Facility: [facility] Address: [address] [place] [address] Performed By: #### 5 8410-2 ####[facility] LABORATORYCLIA [id number] [address] MCH (RBC) [Entitic mass] 27.0 pg Normal 26.0-34.0 [facility] Comment on above: Order Comment: Speci men Type: BLOOD SPECIMENOrdering Facility: [facility] Address: [address] [place] [address] Performed By: #### 5 8410-2 ####[facility] LABORATORYCLIA [id number] [address] MCHC (RBC) [Mass/Vol] 29.6 g/dL Low 30.5-36.0 [facility] Comment on above: Order Comment: Speci men Type: BLOOD SPECIMENOrdering Facility: [facility] Address: [address] [place] [address] Performed By: #### 5 8410-2 ####[facility] LABORATORYCLIA [id number] [address] [facility] MCV (RBC) [Entitic vol] 91.3 fL Normal 80.0-100.0 [facility] Comment on above: Order Comment: Speci men Type: BLOOD SPECIMENOrdering Facility: [facility] Address: [address] [place] [address] Performed By: #### 5 8410-2 ####[facility] LABORATORYCLIA [id number] [address] Nucleated RBC (Bld) [#/Vol] 10*3/uL Normal <0.01 [facility] Comment on above: Order Comment: Speci men Type: BLOOD SPECIMENOrdering Facility: [facility] Address: [address] [place] [address] Performed By: #### 5 8410-2 ####[facility] LABORATORYCLIA [id number] [address] [place] Platelet mean volume (Bld) [Entitic vol] 10.3 fL Normal 9.0-12.7 [facility] Comment on above: Order Comment: Speci men Type: BLOOD SPECIMENOrdering Facility: [facility] Address: [address] [place] [address] Performed By: #### 5 8410-2 ####[facility] LABORATORYCLIA [id number] [address] Platelets (Bld) [#/Vol] 359 10*3/uL Normal 150-400 [facility] Comment on above: Order Comment: Speci men Type: BLOOD SPECIMENOrdering Facility: [facility] Address: [address] [place] [address] Performed By: #### 5 8410-2 ####[facility] LABORATORYCLIA [id number] [address] [facility] RBC (Bld) [#/Vol] 3.44 10*6/uL Low 4.20-6.00 [facility] Comment on above: Order Comment: Speci men Type: BLOOD SPECIMENOrdering Facility: [facility] Address: [address] [place] [address] Performed By: #### 5 8410-2 ####[facility] LABORATORYCLIA [id number] [address] WBC (Bld) [#/Vol] 10.73 10*3/uL Normal 3.70-11.00 [facility] Comment on above: Order Comment: Speci men Type: BLOOD SPECIMENOrdering Facility: [facility] Address: [address] [place] [address] Performed By: #### 5 8410-2 ####[facility] LABORATORYCLIA [id number] [address] [facility] Magnesium [Mass/Vol] 2.2 mg/dL Normal 1.7-2.3 [facility] Comment on above: Order Comment: Speci men Type: BLOOD SPECIMENOrdering Facility: [facility] Address: [address] [place] [address] Performed By: #### 2 4321-2, 37184-1 ####[facility] LABORATORYCLIA [id number] [address] NT-proBNP SerPl-mCncon 06-27 Natriuretic peptide.B prohormone N-Terminal [Mass/Vol] 184 pg/mL High <125 [facility] Comment on above: Order Comment: Speci men Type: BLOOD SPECIMENOrdering Facility: [facility] Address: [address] [place] [address] Performed By: #### 3 3762-6 ####[facility] LABORATORYCLIA [id number] [place] [address] [place] NUTRITIONon 06-27-2021 NUTRITION Normal [facility] THERAPY NTon 06-27-2021 THERAPY NT Normal [facility] THERAPY NT Normal [facility] XR CHEST 1V FRONTALon 2021 XR CHEST 1V FRONTAL Normal [facility] Basic metabolic 2000 panelon 06-26-2021 Anion gap [Moles/Vol] 9 mmol/L Normal 9-18 [facility] Comment on above: Order Comment: Speci men Type: BLOOD SPECIMENOrdering Facility: [facility] Address: [address] [place] [address] Performed By: #### 1 9123-9, 93792-3 ####[facility] LABORATORYCLIA [id number] [place] [address] [place] Calcium [Mass/Vol] 8.7 mg/dL Normal 8.5-10.2 [facility] Comment on above: Order Comment: Speci men Type: BLOOD SPECIMENOrdering Facility: [facility] Address: [address] [place] [address] Performed By: #### 1 9123-9, 71496-2 ####[facility] LABORATORYCLIA [id number] [place] [address] [place] Chloride [Moles/Vol] 105 mmol/L Normal 97-105 [facility] Comment on above: Order Comment: Speci men Type: BLOOD SPECIMENOrdering Facility: [facility] Address: [address] [address] Performed By: #### 1 9123-9, 43838-5 ####[facility] LABORATORYCLIA [id number] [place] [address] [place] CO2 [Moles/Vol] 26 mmol/L Normal 22-30 [facility] Comment on above: Order Comment: Speci men Type: BLOOD SPECIMENOrdering Facility: [facility] Address: [address] [address] Performed By: #### 1 9123-9, 05292-7 ####[facility]ELCLIA [id number] [place] [id number] [place] Creatinine [Mass/Vol] 0.56 mg/dL Low 0.73-1.22 [facility] Comment on above: Order Comment: [facility] Type: BLOOD SPECIMENOrdering Facility: [facility] Address: [address] [place] [address] Performed By: #### 1 9123-9, 07823-3 ####[facility] LABORATORYCLIA [id number] [place] [address] [place] GFR/1.73 sq M.predicted MDRD (S/P/Bld) [Vol rate/Area] mL/min/{1.73_m2} Normal [facility] Comment on above: Order Comment: [facility] Type: BLOOD SPECIMENOrdering Facility: [facility] Address: [address] [place] [address] Result Comment: >60e GFR (Estimated GFR) Units [...] actual GFR. Performed By: #### 1 9123-9, 59274-1 ####[facility] LABORATORYCLIA [id number] [place] [address] [place] Glucose [Mass/Vol] 134 mg/dL High 74-99 [facility] Comment on above: Order Comment: [facility] Type: BLOOD SPECIMENOrdering Facility: [facility] Address: [address] [place] [address] Result Comment: The [place] Diabetes Association (ADA) provides guidance for cutoff [...] Standards of Medical Care in Diabetes 2016, [place] Diabetes Association. Diabetes Care. 2016.39(Suppl 1). Performed By: #### 1 9123-9, 80602-6 ####[facility] LABORATORYCLIA [id number] [place] [address] [place] Potassium [Moles/Vol] 3.8 mmol/L Normal 3.7-5.1 [facility] Comment on above: Order Comment: Speci men Type: BLOOD SPECIMENOrdering Facility: [facility] Address: [address] [place] [address] Performed By: #### 1 91-2 ####[facility]ELCLIA [id number] [address] [place] Sodium [Moles/Vol] 140 mmol/L Normal 136-144 [facility] Comment on above: Order Comment: Shira feldman Type: BLOOD SPECIMENOrdering Facility: [facility] Address: [address] [place] [address] Performed By: #### 1 9123 ####[facility] LABORATORYCLIA [id number] [place] [address] [place] Urea nitrogen [Mass/Vol] 24 mg/dL Normal 9-24 [facility] Comment on above: Order Comment: Johni men Type: BLOOD SPECIMENOrdering Facility: [facility] Address: [address] [address] Performed By: #### 1 91239-2 ####[facility] LABORATORYCLIA [id number] [address] [place] CBC panel Auto (Bld)on 06-26 Erythrocyte distribution width (RBC) [Ratio] 15.9 % High 11.5-15.0 [facility] Comment on above: Order Comment: Speci men Type: BLOOD SPECIMENOrdering Facility: [facility] Address: [address] [place] [address] Performed By: #### 5 8410-2 ####[facility] LABORATORYCLIA [id number] [address] Hematocrit (Bld) [Volume fraction] 29.8 % Low 39.0-51.0 [facility] Comment on above: Order Comment: Speci men Type: BLOOD SPECIMENOrdering Facility: [facility] Address: [address] [place] [address] Performed By: #### 5 8410-2 ####[facility] LABORATORYCLIA [id number] [address] [facility] Hemoglobin (Bld) [Mass/Vol] 9.1 g/dL Low 13.0-17.0 [facility] Comment on above: Order Comment: Speci men Type: BLOOD SPECIMENOrdering Facility: [facility] Address: [address] [place] [address] Performed By: #### 5 8410-2 ####[facility] LABORATORYCLIA [id number] [address] [facility] MCH (RBC) [Entitic mass] 27.8 pg Normal 26.0-34.0 [facility] Comment on above: Order Comment: Speci men Type: BLOOD SPECIMENOrdering Facility: [facility] Address: [address] [place] [address] Performed By: #### 5 8410-2 ####[facility] LABORATORYCLIA [id number] [address] [place] MCHC (RBC) [Mass/Vol] 30.5 g/dL Normal 30.5-36.0 [facility] Comment on above: Order Comment: Speci men Type: BLOOD SPECIMENOrdering Facility: [facility] Address: [address] [address] Performed By: #### 5 8410-2 ####[facility] LABORATORYCLIA [id number] [address] MCV (RBC) [Entitic vol] 91.1 fL Normal 80.0-100.0 [facility] Comment on above: Order Comment: Speci men Type: BLOOD SPECIMENOrdering Facility: [facility] Address: [address] [place] [address] Performed By: #### 5 8410-2 ####[facility] LABORATORYCLIA [id number] [address] Nucleated RBC (Bld) [#/Vol] 10*3/uL Normal <0.01 [facility] Comment on above: Order Comment: Speci men Type: BLOOD SPECIMENOrdering Facility: [facility] Address: [address] [place] [address] Performed By: #### 5 8410-2 ####[facility] LABORATORYCLIA [id number] [address] [place] Platelet mean volume (Bld) [Entitic vol] 10.3 fL Normal 9.0-12.7 [facility] Comment on above: Order Comment: Speci men Type: BLOOD SPECIMENOrdering Facility: [facility] Address: [address] [place] [address] Performed By: #### 5 8410-2 ####[facility] LABORATORYCLIA [id number] [address] Platelets (Bld) [#/Vol] 336 10*3/uL Normal 150-400 [facility] Comment on above: Order Comment: Speci men Type: BLOOD SPECIMENOrdering Facility: [facility] Address: [address] [place] [address] Performed By: #### 5 8410-2 ####[facility] LABORATORYCLIA [id number] [address] [place] RBC (Bld) [#/Vol] 3.27 10*6/uL Low 4.20-6.00 [facility] Comment on above: Order Comment: Speci men Type: BLOOD SPECIMENOrdering Facility: [facility] Address: [address] [place] [address] Performed By: #### 5 8410-2 ####[facility] LABORATORYCLIA [id number] [place] [address] [place] WBC (Bld) [#/Vol] 9.14 10*3/uL Normal 3.70-11.00 [facility] Comment on above: Order Comment: Speci men Type: BLOOD SPECIMENOrdering Facility: [facility] Address: [address] [place] [address] Performed By: #### 5 8410-2 ####[facility] LABORATORYCLIA [id number] [address] [facility] CONSULT PROGon 06-26-2021 CONSULT PROG Normal [facility] Magnesium SerPl-mCncon 06-26 Magnesium [Mass/Vol] 2.2 mg/dL Normal 1.7-2.3 [facility] Comment on above: Order Comment: Speci men Type: BLOOD SPECIMENOrdering Facility: [facility] Address: [address] [place] [address] Performed By: #### 1 9123-9, 37904-0 ####[facility] LABORATORYCLIA [id number] [address] [place] NURSING PROGon 06-26-2021 NURSING PROG Normal [facility] NURSING PROG Normal [facility] Basic metabolic 2000 panelon 06-25-2021 Anion gap [Moles/Vol] 8 mmol/L Low 9-18 [facility] Comment on above: Order Comment: Speci men Type: BLOOD SPECIMENOrdering Facility: [facility] Address: [address] [place] [address] Performed By: #### 2 4321-2, 08436-5 ####[facility] LABORATORYCLIA [id number] [address] [place] Calcium [Mass/Vol] 8.8 mg/dL Normal 8.5-10.2 [facility] Comment on above: Order Comment: Speci men Type: BLOOD SPECIMENOrdering Facility: [facility] Address: [address] [place] [address] Performed By: #### 2 4321-2, ####[facility] LABORATORYCLIA [id number] [place] [address] [place] Chloride [Moles/Vol] 105 mmol/L Normal 97-105 [facility] Comment on above: Order Comment: Speci men Type: BLOOD SPECIMENOrdering Facility: [facility] Address: [address] [place] [address] Performed By: #### 2 4320-2, ####[facility] LABORATORYCLIA [id number] [address] [place] CO2 [Moles/Vol] 27 mmol/L Normal 22-30 [facility] Comment on above: Order Comment: Speci men Type: BLOOD SPECIMENOrdering Facility: [facility] Address: [address] [place] [address] Performed By: #### 2 4320-2, ####[facility] LABORATORYCLIA [id number] [address] [place] Creatinine [Mass/Vol] 0.59 mg/dL Low 0.73-1.22 [facility] Comment on above: Order Comment: Speci men Type: BLOOD SPECIMENOrdering Facility: [facility] Address: [address] [place] [address] Performed By: #### 2 4320-2, ####[facility] LABORATORYCLIA [id number] [address] [place] GFR/1.73 sq M.predicted MDRD (S/P/Bld) [Vol rate/Area] mL/min/{1.73_m2} Normal [facility] Comment on above: Order Comment: Speci men Type: BLOOD SPECIMENOrdering Facility: [facility] Address: [address] [place], [place] [id number] Result Comment: >60e GFR (Estimated GFR) Units [...] actual GFR. Performed By: #### 2 4321-2, 52241-7 ####[facility] LABORATORYCLIA [id number] [place] [address] [place] Glucose [Mass/Vol] 132 mg/dL High 74-99 [facility] Comment on above: Order Comment: Shira feldman Type: BLOOD SPECIMENOrdering Facility: [facility] Address: [address] [place] [address] Result Comment: The [place] Diabetes Association (ADA) provides guidance for cutoff [...] Standards of Medical Care in Diabetes 2016, [place] Diabetes Association. Diabetes Care. 2016.39(Suppl 1). Performed By: #### 2 4321-2, 11606-7 ####[facility] LABORATORYCLIA [id number] [place] [address] [place] Potassium [Moles/Vol] 3.9 mmol/L Normal 3.7-5.1 [facility] Comment on above: Order Comment: Speci men Type: BLOOD SPECIMENOrdering Facility: [facility] Address: [address] [address] Performed By: #### 2 4321-2, ####[facility] LABORATORYCLIA [id number] [address] Sodium [Moles/Vol] 140 mmol/L Normal 136-144 [facility] Comment on above: Order Comment: Speci men Type: BLOOD SPECIMENOrdering Facility: [facility] Address: [address] [place] [address] Performed By: #### 2 4321-2, ####[facility] LABORATORYCLIA [id number] [address] [place] [facility] Urea nitrogen [Mass/Vol] 24 mg/dL Normal 9-24 [facility] Comment on above: Order Comment: Speci men Type: BLOOD SPECIMENOrdering Facility: [facility] Address: [address] [place] [address] Performed By: #### 2 432-2, ####[facility] LABORATORYCLIA [id number] [address] CASE MANAGEMon 06-25-2021 CASE MANAGEM Normal [facility] CBC panel Auto (Bld)on 06-25 Erythrocyte distribution width (RBC) [Ratio] 15.9 % High 11.5-15.0 [facility] Comment on above: Order Comment: Speci men Type: BLOOD SPECIMENOrdering Facility: [facility] Address: [address] [place] [address] Performed By: #### 5 8410-2 ####[facility] LABORATORYCLIA [id number] [address] Hematocrit (Bld) [Volume fraction] 31.0 % Low 39.0-51.0 [facility] Comment on above: Order Comment: Speci men Type: BLOOD SPECIMENOrdering Facility: [facility] Address: [address] [place] [address] Performed By: #### 5 8410-2 ####[facility]ORATORYCLIA [id number] [address] Hemoglobin (Bld) [Mass/Vol] 9.4 g/dL Low 13.0-17.0 [facility] Comment on above: Order Comment: Speci men Type: BLOOD SPECIMENOrdering Facility: [facility] Address: [address] [place] [address] Performed By: #### 5 8410-2 ####[facility] LABORATORYCLIA [id number] [address] MCH (RBC) [Entitic mass] 28.1 pg Normal 26.0-34.0 [facility] Comment on above: Order Comment: Speci men Type: BLOOD SPECIMENOrdering Facility: [facility] Address: [address] [place] [address] Performed By: #### 5 8410-2 ####[facility] LABORATORYCLIA [id number] [address] MCHC (RBC) [Mass/Vol] 30.3 g/dL Low 30.5-36.0 [facility] Comment on above: Order Comment: Speci men Type: BLOOD SPECIMENOrdering Facility: [facility] Address: [address] [place] [address] Performed By: #### 5 8410-2 ####[facility] LABORATORYCLIA [id number] [address] MCV (RBC) [Entitic vol] 92.5 fL Normal 80.0-100.0 [facility] Comment on above: Order Comment: Speci men Type: BLOOD SPECIMENOrdering Facility: [facility] Address: [address] [place] [address] Performed By: #### 5 8410-2 ####[facility] LABORATORYCLIA [id number] [address] [facility] Nucleated RBC (Bld) [#/Vol] 10*3/uL Normal <0.01 [facility] Comment on above: Order Comment: Speci men Type: BLOOD SPECIMENOrdering Facility: [facility] Address: [address] [place] [address] Performed By: #### 5 8410-2 ####[facility] LABORATORYCLIA [id number] [address] [place] Platelet mean volume (Bld) [Entitic vol] 10.5 fL Normal 9.0-12.7 [facility] Comment on above: Order Comment: Speci men Type: BLOOD SPECIMENOrdering Facility: [facility] Address: [address] [place] [address] Performed By: #### 5 8410-2 ####[facility] LABORATORYCLIA [id number] [address] [place] Platelets (Bld) [#/Vol] 311 10*3/uL Normal 150-400 [facility] Comment on above: Order Comment: Speci men Type: BLOOD SPECIMENOrdering Facility: [facility] Address: [address] [place] [address] Performed By: #### 5 8410-2 ####[facility] LABORATORYCLIA [id number] [place] [address] [place] RBC (Bld) [#/Vol] 3.35 10*6/uL Low 4.20-6.00 [facility] Comment on above: Order Comment: Speci men Type: BLOOD SPECIMENOrdering Facility: [facility] Address: [address] [place], [place] [address] Performed By: #### 5 8410-2 ####[facility] LABORATORYCLIA [id number] [place] [address] [place] WBC (Bld) [#/Vol] 9.57 10*3/uL Normal 3.70-11.00 [facility] Comment on above: Order Comment: Speci men Type: BLOOD SPECIMENOrdering Facility: [facility] Address: [address] [place] [address] Performed By: #### 5 8410-2 ####[facility] LABORATORYCLIA [id number] [place] [address] [place] Magnesium SerPl-mCncon 06-25 Magnesium [Mass/Vol] 2.4 mg/dL High 1.7-2.3 [facility] Comment on above: Order Comment: Speci men Type: BLOOD SPECIMENOrdering Facility: [facility] Address: [address] [place] [address] Performed By: #### 2 4321-2, 70668-3 ####[facility] LABORATORYCLIA [id number] [place] [address] [place] Basic metabolic 2000 panelon 06-24-2021 Anion gap [Moles/Vol] 9 mmol/L Normal - [facility] Comment on above: Order Comment: Speci men Type: BLOOD SPECIMENOrdering Facility: [facility] Address: [address] [place] [address] Performed By: #### 1 9123-9, 67174-3 ####[facility] LABORATORYCLIA [id number] [place] [address] [place] Calcium [Mass/Vol] 8.6 mg/dL Normal 8.5-10.2 [facility] Comment on above: Order Comment: Speci men Type: BLOOD SPECIMENOrdering Facility: [facility] Address: [address] [place] [address] Performed By: #### 1 9123-9, 79263-1 ####[facility] LABORATORYCLIA [id number] [place] [address] [place] Chloride [Moles/Vol] 103 mmol/L Normal 97-105 [facility] Comment on above: Order Comment: Speci men Type: BLOOD SPECIMENOrdering Facility: [facility] Address: [address] [place] [address] Performed By: #### 1 9123-9, 78600-8 ####[facility] LABORATORYCLIA [id number] [place] [address] [place] CO2 [Moles/Vol] 26 mmol/L Normal 22-30 [facility] Comment on above: Order Comment: Speci men Type: BLOOD SPECIMENOrdering Facility: [facility] Address: [address] [place] [address] Performed By: #### 1 9123-9, 14500-0 ####[facility] LABORATORYCLIA [id number] [place] [address] [place] Creatinine [Mass/Vol] 0.60 mg/dL Low 0.73-1.22 [facility] Comment on above: Order Comment: Speci men Type: BLOOD SPECIMENOrdering Facility: [facility] Address: [address] [place] [address] Performed By: #### 1 9123-9, 18866-9 ####[facility] LABORATORYCLIA [id number] [address] [place] GFR/1.73 sq M.predicted MDRD (S/P/Bld) [Vol rate/Area] mL/min/{1.73_m2} Normal [facility] Comment on above: Order Comment: Shira francia Type: BLOOD SPECIMENOrdering Facility: [facility] Address: [address] [place] [address] Result Comment: >60e GFR (Estimated GFR) Units [...] actual GFR. Performed By: #### 1 9123-9, 32229-6 ####[facility] LABORATORYCLIA [id number] [place] [id number] [place] Glucose [Mass/Vol] 126 mg/dL High 74-99 [facility] Comment on above: Order Comment: Speci men Type: BLOOD SPECIMENOrdering Facility: [facility] Address: [address] [address] Result Comment: The [place] Diabetes Association (ADA) provides guidance for cutoff [...] Standards of Medical Care in Diabetes 2016, [place] Diabetes Association. Diabetes Care. 2016.39(Suppl 1). Performed By: #### 1 9123-9, 55888-3 ####[facility] LABORATORYCLIA [id number] [place] [address] [place] Potassium [Moles/Vol] 3.9 mmol/L Normal 3.7-5.1 [facility] Comment on above: Order Comment: Speccara feldman Type: BLOOD SPECIMENOrdering Facility: [facility] Address: [address] [place] [address] Performed By: #### 1 9123-9, 01620-6 ####[facility] LABORATORYCLIA [id number] [place] [address] [place] Sodium [Moles/Vol] 138 mmol/L Normal 136-144 [facility] Comment on above: Order Comment: Speci men Type: BLOOD SPECIMENOrdering Facility: [facility] Address: [address] [address] Performed By: #### 1 9123-9, 73869-9 ####[facility] LABORATORYCLIA [id number] [place] [address] [place] Urea nitrogen [Mass/Vol] 24 mg/dL Normal 9-24 [facility] Comment on above: Order Comment: Speci men Type: BLOOD SPECIMENOrdering Facility: [facility] Address: [address] Performed By: #### 1 9123-9, 60638-6 ####[facility] LABORATORYCLIA [id number] [address] [facility] CASE MANAGEMon 06-24-2021 CASE MANAGEM Normal [facility] CASE MANAGEM Normal [facility] CASE MANAGEM Normal [facility] CBC panel Auto (Bld)on 06-24 Erythrocyte distribution width (RBC) [Ratio] 16.1 % High 11.5-15.0 [facility] Comment on above: Order Comment: Speci men Type: BLOOD SPECIMENOrdering Facility: [facility] Address: [address] [place] [address] Performed By: #### 5 8410-2 ####[facility] LABORATORYCLIA [id number] [address] STATES [facility] Hematocrit (Bld) [Volume fraction] 31.7 % Low 39.0-51.0 [facility] Comment on above: Order Comment: Speci men Type: BLOOD SPECIMENOrdering Facility: [facility] Address: [address] [place] [address] Performed By: #### 5 8410-2 ####[facility] LABORATORYCLIA [id number] [address] [place] Hemoglobin (Bld) [Mass/Vol] 9.7 g/dL Low 13.0-17.0 [facility] Comment on above: Order Comment: Speci men Type: BLOOD SPECIMENOrdering Facility: [facility] Address: [address] [address] Performed By: #### 5 8410-2 ####[facility] LABORATORYCLIA [id number] [address] [place] MCH (RBC) [Entitic mass] 28.0 pg Normal 26.0-34.0 [facility] Comment on above: Order Comment: Speci men Type: BLOOD SPECIMENOrdering Facility: [facility] Address: [address] [place] [address] Performed By: #### 5 8410-2 ####[facility] LABORATORYCLIA [id number] [address] STATES [facility] MCHC (RBC) [Mass/Vol] 30.6 g/dL Normal 30.5-36.0 [facility] Comment on above: Order Comment: Speci men Type: BLOOD SPECIMENOrdering Facility: [facility] Address: [address] [place] [address] Performed By: #### 5 8410-2 ####[facility] LABORATORYCLIA [id number] [address] MCV (RBC) [Entitic vol] 91.4 fL Normal 80.0-100.0 [facility] Comment on above: Order Comment: Speci men Type: BLOOD SPECIMENOrdering Facility: [facility] Address: [address] [place] [address] Performed By: #### 5 8410-2 ####[facility] LABORATORYCLIA [id number] [address] Nucleated RBC (Bld) [#/Vol] 10*3/uL Normal <0.01 [facility] Comment on above: Order Comment: Speci men Type: BLOOD SPECIMENOrdering Facility: [facility] Address: [address] [place] [address] Performed By: #### 5 8410-2 ####[facility] LABORATORYCLIA [id number] [address] [place] Platelet mean volume (Bld) [Entitic vol] 11.0 fL Normal 9.0-12.7 [facility] Comment on above: Order Comment: Speci men Type: BLOOD SPECIMENOrdering Facility: [facility] Address: [address] [place] [address] Performed By: #### 5 8410-2 ####[facility] LABORATORYCLIA [id number] [address] [place] Platelets (Bld) [#/Vol] 358 10*3/uL Normal 150-400 [facility] Comment on above: Order Comment: Speci men Type: BLOOD SPECIMENOrdering Facility: [facility] Address: [address] [place] [address] Performed By: #### 5 8410-2 ####[facility] LABORATORYCLIA [id number] [address] [facility] RBC (Bld) [#/Vol] 3.47 10*6/uL Low 4.20-6.00 [facility] Comment on above: Order Comment: Speci men Type: BLOOD SPECIMENOrdering Facility: [facility] Address: [address] [place] [address] Performed By: #### 5 8410-2 ####[facility] LABORATORYCLIA [id number] [address] WBC (Bld) [#/Vol] 10.07 10*3/uL Normal 3.70-11.00 [facility] Comment on above: Order Comment: Speci men Type: BLOOD SPECIMENOrdering Facility: [facility] Address: [address] [place] [address] Performed By: #### 5 8410-2 ####[facility] LABORATORYCLIA [id number] [address] Magnesium SerPl-mCncon 06-24 Magnesium [Mass/Vol] 2.3 mg/dL Normal 1.7-2.3 [facility] Comment on above: Order Comment: Speci men Type: BLOOD SPECIMENOrdering Facility: [facility] Address: [address] [place] [address] Performed By: #### 1 9123-9, 09228-0 ####[facility] LABORATORYCLIA [id number] [place] [address] [place] ALLIED HEALTHon 06-23-2021 ALLIED HEALTH Normal [facility] Basic metabolic 2000 panelon 06-23-2021 Anion gap [Moles/Vol] 9 mmol/L Normal 9-18 [facility] Comment on above: Order Comment: Speci men Type: BLOOD SPECIMENOrdering Facility: [facility] Address: [address] [address] Performed By: #### 1 9123-01, 83330-1 ####[facility] LABORATORYCLIA [id number] [place] [address] [place] Calcium [Mass/Vol] 8.4 mg/dL Low 8.5-10.2 [facility] Comment on above: Order Comment: Speci men Type: BLOOD SPECIMENOrdering Facility: [facility] Address: [address] [place] [address] Performed By: #### 1 9123-01, 33563-1 ####[facility] LABORATORYCLIA [id number] [place] [address] [place] Chloride [Moles/Vol] 104 mmol/L Normal 97-105 [facility] Comment on above: Order Comment: Speci men Type: BLOOD SPECIMENOrdering Facility: [facility] Address: [address] [place] [address] Performed By: #### 1 9123-01, 71757-9 ####[facility] LABORATORYCLIA [id number] [place] [address] [place] CO2 [Moles/Vol] 26 mmol/L Normal 22-30 [facility] Comment on above: Order Comment: Speci men Type: BLOOD SPECIMENOrdering Facility: [facility] Address: [address] [place] [address] Performed By: #### 1 9123-01, 20889-7 ####[facility] LABORATORYCLIA [id number] [place] [address] [place] Creatinine [Mass/Vol] 0.62 mg/dL Low 0.73-1.22 [facility] Comment on above: Order Comment: Speci men Type: BLOOD SPECIMENOrdering Facility: [facility] Address: [address] [place] [address] Performed By: #### 1 9123-01, 03805-9 ####[facility]ATORYCLIA [id number] [place] [address] [place] GFR/1.73 sq M.predicted MDRD (S/P/Bld) [Vol rate/Area] mL/min/{1.73_m2} Normal [facility] Comment on above: Order Comment: Shira francia Type: BLOOD SPECIMENOrdering Facility: [facility] Address: [address] [place] [address] Result Comment: >60e GFR (Estimated GFR) Units [...] actual GFR. Performed By: #### 1 9123-9, 16817-7 ####[facility] LABORATORYCLIA [id number] [place] [address] [place] Glucose [Mass/Vol] 111 mg/dL High 74-99 [facility] Comment on above: Order Comment: Shira feldman Type: BLOOD SPECIMENOrdering Facility: [facility] Address: [address] [place] [address] Result Comment: The [place] Diabetes Association (ADA) provides guidance for cutoff [...] Standards of Medical Care in Diabetes 2016, [place] Diabetes Association. Diabetes Care. 2016.39(Suppl 1). Performed By: #### 1 9123-9, 52308-8 ####[facility] LABORATORYCLIA [id number] [place] [address] [place] Potassium [Moles/Vol] 4.1 mmol/L Normal 3.7-5.1 [facility] Comment on above: Order Comment: Speci men Type: BLOOD SPECIMENOrdering Facility: [facility] Address: [address] [place] [address] Performed By: #### 1 9123-9, 06906-3 ####[facility] LABORATORYCLIA [id number] [address] [place] Sodium [Moles/Vol] 139 mmol/L Normal 136-144 [facility] Comment on above: Order Comment: Speci men Type: BLOOD SPECIMENOrdering Facility: [facility] Address: [address] [place] [address] Performed By: #### 1 9123-9, 08048-9 ####[facility] LABORATORYCLIA [id number] [address] STATES [facility] Urea nitrogen [Mass/Vol] 26 mg/dL High 9-24 [facility] Comment on above: Order Comment: Speci men Type: BLOOD SPECIMENOrdering Facility: [facility] Address: [address] [place] [address] Performed By: #### 1 9123-9, 96362-6 ####[facility] LABORATORYCLIA [id number] [address] [place] CASE MANAGEMon 06-23-2021 CASE MANAGEM Normal [facility] CBC panel Auto (Bld)on 06-23 Erythrocyte distribution width (RBC) [Ratio] 16.0 % High 11.5-15.0 [facility] Comment on above: Order Comment: Speci men Type: BLOOD SPECIMENOrdering Facility: [facility] Address: [address] [place] [address] Performed By: #### 5 8410-2 ####[facility] LABORATORYCLIA [id number] [address] [facility] Hematocrit (Bld) [Volume fraction] 31.1 % Low 39.0-51.0 [facility] Comment on above: Order Comment: Speci men Type: BLOOD SPECIMENOrdering Facility: [facility] Address: [address] [place] [address] Performed By: #### 5 8410-2 ####[facility] LABORATORYCLIA [id number] [address] [facility] Hemoglobin (Bld) [Mass/Vol] 9.5 g/dL Low 13.0-17.0 [facility] Comment on above: Order Comment: Speci men Type: BLOOD SPECIMENOrdering Facility: [facility] Address: [address] [place] [address] Performed By: #### 5 8410-2 ####[facility] LABORATORYCLIA [id number] [address] [place] MCH (RBC) [Entitic mass] 28.1 pg Normal 26.0-34.0 [facility] Comment on above: Order Comment: Speci men Type: BLOOD SPECIMENOrdering Facility: [facility] Address: [address] [place] [address] Performed By: #### 5 8410-2 ####[facility] LABORATORYCLIA [id number] [address] [place] MCHC (RBC) [Mass/Vol] 30.5 g/dL Normal 30.5-36.0 [facility] Comment on above: Order Comment: Speci men Type: BLOOD SPECIMENOrdering Facility: [facility] Address: [address] [place] [address] Performed By: #### 5 8410-2 ####[facility] LABORATORYCLIA [id number] [address] MCV (RBC) [Entitic vol] 92.0 fL Normal 80.0-100.0 [facility] Comment on above: Order Comment: Speci men Type: BLOOD SPECIMENOrdering Facility: [facility] Address: [address] [place] [address] Performed By: #### 5 8410-2 ####[facility] LABORATORYCLIA [id number] [address] [place] Nucleated RBC (Bld) [#/Vol] 10*3/uL Normal <0.01 [facility] Comment on above: Order Comment: Speci men Type: BLOOD SPECIMENOrdering Facility: [facility] Address: [address] [place] [address] Performed By: #### 5 8410-2 ####[facility] LABORATORYCLIA [id number] [address] [place] Platelet mean volume (Bld) [Entitic vol] 11.0 fL Normal 9.0-12.7 [facility] Comment on above: Order Comment: Speci men Type: BLOOD SPECIMENOrdering Facility: [facility] Address: [address] [place] [address] Performed By: #### 5 8410-2 ####[facility] LABORATORYCLIA [id number] [address] [place] Platelets (Bld) [#/Vol] 361 10*3/uL Normal 150-400 [facility] Comment on above: Order Comment: Speci men Type: BLOOD SPECIMENOrdering Facility: [facility] Address: [address] [place] [address] Performed By: #### 5 8410-2 ####[facility] LABORATORYCLIA [id number] [address] [place] RBC (Bld) [#/Vol] 3.38 10*6/uL Low 4.20-6.00 [facility] Comment on above: Order Comment: Speci men Type: BLOOD SPECIMENOrdering Facility: [facility] Address: [address] [place] [address] Performed By: #### 5 8410-2 ####[facility] LABORATORYCLIA [id number] [address] [place] WBC (Bld) [#/Vol] 9.02 10*3/uL Normal 3.70-11.00 [facility] Comment on above: Order Comment: Speci men Type: BLOOD SPECIMENOrdering Facility: [facility] Address: [address] [place] [address] Performed By: #### 5 8410-2 ####[facility] LABORATORYCLIA [id number] [address] CONSULT PROGon 06-23-2021 CONSULT PROG Normal [facility] CONSULT PROG Normal [facility] Magnesium SerPl-mCncon 06-23 Magnesium [Mass/Vol] 2.4 mg/dL High 1.7-2.3 [facility] Comment on above: Order Comment: Speci men Type: BLOOD SPECIMENOrdering Facility: [facility] Address: [address] [place] [address] Performed By: #### 1 9123-9, 84538-7 ####[facility] LABORATORYCLIA [id number] [address] THERAPY NTon 06-23-2021 THERAPY NT Normal [facility] Vancomycin random [Mass/Vol] on 06-23-2021 Vancomycin [Mass/Vol] 22.8 ug/mL High 10.0-20.0 [facility] Comment on above: Order Comment: Speci men Type: BLOOD SPECIMENOrdering Facility: [facility] Address: [address] [place] [address] Result Comment: Refe rence ranges and high/low indicator flags are provided as general guidelines only. The treating physician must determine appropriate target levels/dosing based on the specific clinical situation. Performed By: #### 4 091-5 ####[facility] LABORATORYCLIA [id number] [address] [place] XR MOD BARIUM SWALLOW W SPEE Lore 06-23-2021 XR MOD BARIUM SWALLOW W SPEECH Normal [facility] Basic metabolic 2000 panelon 06-22-2021 Anion gap [Moles/Vol] 6 mmol/L Low 9-18 [facility] Comment on above: Order Comment: Speci men Type: BLOOD SPECIMENOrdering Facility: [facility] Address: [address] [address] Performed By: #### 2 4320-2, ####[facility]ORATORYCLIA [id number] [place] [address] [place] Calcium [Mass/Vol] 8.5 mg/dL Normal 8.5-10.2 [facility] Comment on above: Order Comment: Speci men Type: BLOOD SPECIMENOrdering Facility: [facility] Address: [address] [address] Performed By: #### 2 4320-2, ####[facility]ORATORYCLIA [id number] [place] [address] [place] Chloride [Moles/Vol] 105 mmol/L Normal 97-105 [facility] Comment on above: Order Comment: Speci men Type: BLOOD SPECIMENOrdering Facility: [facility] Address: [address] [place] [address] Performed By: #### 2 4320-06, ####[facility] LABORATORYCLIA [id number] [place] [address] [place] CO2 [Moles/Vol] 26 mmol/L Normal 22-30 [facility] Comment on above: Order Comment: Speci men Type: BLOOD SPECIMENOrdering Facility: [facility] Address: [address] [address] Performed By: #### 2 2, ####[facility] LABORATORYCLIA [id number] [place] [address] [place] Creatinine [Mass/Vol] 0.56 mg/dL Low 0.73-1.22 [facility] Comment on above: Order Comment: Speci men Type: BLOOD SPECIMENOrdering Facility: [facility] Address: [address] [address] Performed By: #### 2 4320-2, ####[facility]ORATORYCLIA [id number] [place] [address] [place] GFR/1.73 sq M.predicted MDRD (S/P/Bld) [Vol rate/Area] mL/min/{1.73_m2} Normal [facility] Comment on above: Order Comment: Shira feldman Type: BLOOD SPECIMENOrdering Facility: [facility] Address: [address] [place] [address] Result Comment: >60e GFR (Estimated GFR) Units [...] actual GFR. Performed By: #### 2 4321-2, 97664-9 ####[facility] LABORATORYCLIA [id number] [place] [address] [place] Glucose [Mass/Vol] 120 mg/dL High 74-99 [facility] Comment on above: Order Comment: Shira feldman Type: BLOOD SPECIMENOrdering Facility: [facility] Address: [address] [place] [address] Result Comment: [place] Diabetes Association (ADA) provides guidance for cutoff [...] Standards of Medical Care in Diabetes 2016, [place] Diabetes Association. Diabetes Care. 2016.39(Suppl 1). Performed By: #### 2 4321-2, 38460-7 ####[facility] LABORATORYCLIA [id number] [place] [address] [place] Potassium [Moles/Vol] 4.0 mmol/L Normal 3.7-5.1 [facility] Comment on above: Order Comment: Speci men Type: BLOOD SPECIMENOrdering Facility: [facility] Address: [address] [place] [address] Performed By: #### 2 4321-2, ####[facility] LABORATORYCLIA [id number] [address] [place] Sodium [Moles/Vol] 137 mmol/L Normal 136-144 [facility] Comment on above: Order Comment: Speci men Type: BLOOD SPECIMENOrdering Facility: [facility] Address: [address] [place] [address] Performed By: #### 2 4321-2, ####[facility] LABORATORYCLIA [id number] [address] STATES [facility] Urea nitrogen [Mass/Vol] 25 mg/dL High 9-24 [facility] Comment on above: Order Comment: Speci men Type: BLOOD SPECIMENOrdering Facility: [facility] Address: [address] [place] [address] Performed By: #### 2 4321-2, ####[facility] LABORATORYCLIA [id number] [address] [place] CASE MANAGEMon 06-22-2021 CASE MANAGEM Normal [facility] CBC panel Auto (Bld)on 06-22 Erythrocyte distribution width (RBC) [Ratio] 16.0 % High 11.5-15.0 [facility] Comment on above: Order Comment: Speci men Type: BLOOD SPECIMENOrdering Facility: [facility] Address: [address] [place] [address] Performed By: #### 5 8410-2 ####[facility] LABORATORYCLIA [id number] [address] [facility] Hematocrit (Bld) [Volume fraction] 30.5 % Low 39.0-51.0 [facility] Comment on above: Order Comment: Speci men Type: BLOOD SPECIMENOrdering Facility: [facility] Address: [address] [place] [address] Performed By: #### 5 8410-2 ####[facility] LABORATORYCLIA [id number] [address] [facility] Hemoglobin (Bld) [Mass/Vol] 9.3 g/dL Low 13.0-17.0 [facility] Comment on above: Order Comment: Speci men Type: BLOOD SPECIMENOrdering Facility: [facility] Address: [address] [place] [address] Performed By: #### 5 8410-2 ####[facility] LABORATORYCLIA [id number] [address] OF [facility] MCH (RBC) [Entitic mass] 28.4 pg Normal 26.0-34.0 [facility] Comment on above: Order Comment: Speci men Type: BLOOD SPECIMENOrdering Facility: [facility] Address: [address] [place] [address] Performed By: #### 5 8410-2 ####[facility] LABORATORYCLIA [id number] [address] MCHC (RBC) [Mass/Vol] 30.5 g/dL Normal 30.5-36.0 [facility] Comment on above: Order Comment: Speci men Type: BLOOD SPECIMENOrdering Facility: [facility] Address: [address] [place] [address] Performed By: #### 5 8410-2 ####[facility] LABORATORYCLIA [id number] [address] MCV (RBC) [Entitic vol] 93.3 fL Normal 80.0-100.0 [facility] Comment on above: Order Comment: Speci men Type: BLOOD SPECIMENOrdering Facility: [facility] Address: [address] [place] [address] Performed By: #### 5 8410-2 ####[facility] LABORATORYCLIA [id number] [address] [place] Nucleated RBC (Bld) [#/Vol] 10*3/uL Normal <0.01 [facility] Comment on above: Order Comment: Speci men Type: BLOOD SPECIMENOrdering Facility: [facility] Address: [address] [place] [address] Performed By: #### 5 8410-2 ####[facility] LABORATORYCLIA [id number] [address] [place] Platelet mean volume (Bld) [Entitic vol] 11.5 fL Normal 9.0-12.7 [facility] Comment on above: Order Comment: Speci men Type: BLOOD SPECIMENOrdering Facility: [facility] Address: [address] [place] [address] Performed By: #### 5 8410-2 ####[facility] LABORATORYCLIA [id number] [address] [place] Platelets (Bld) [#/Vol] 346 10*3/uL Normal 150-400 [facility] Comment on above: Order Comment: Speci men Type: BLOOD SPECIMENOrdering Facility: [facility] Address: [address] [place] [address] Performed By: #### 5 8410-2 ####[facility] LABORATORYCLIA [id number] [address] [place] RBC (Bld) [#/Vol] 3.27 10*6/uL Low 4.20-6.00 [facility] Comment on above: Order Comment: Speci men Type: BLOOD SPECIMENOrdering Facility: [facility] Address: [address] [place] [address] Performed By: #### 5 8410-2 ####[facility] LABORATORYCLIA [id number] [address] [place] WBC (Bld) [#/Vol] 9.44 10*3/uL Normal 3.70-11.00 [facility] Comment on above: Order Comment: Speci men Type: BLOOD SPECIMENOrdering Facility: [facility] Address: [address] [place] [address] Performed By: #### 5 8410-2 ####[facility] LABORATORYCLIA [id number] [address] [place] HEMOGLOBIN (HGB)on Hemoglobin (Bld) [Mass/Vol] 9.7 g/dL Low 13.0-17.0 [facility] Comment on above: Order Comment: Speci men Type: BLOOD SPECIMENOrdering Facility: [facility] Address: [address] [place] [address] Performed By: #### H GB ####[facility] LABORATORYCLIA [id number] [address] Magnesium SerPl-mCncon 06-22 Magnesium [Mass/Vol] 2.4 mg/dL High 1.7-2.3 [facility] Comment on above: Order Comment: Speci men Type: BLOOD SPECIMENOrdering Facility: [facility] Address: [address] [place] [address] Performed By: #### 2 4321-2, 21626-9 ####[facility] LABORATORYCLIA [id number] [address] [place] THERAPY NTon 06-22-2021 THERAPY NT Normal [facility] THERAPY NT Normal [facility] aPTT PPPon 06-22-2021 aPTT Coag (PPP) [Time] 62.3 s High 23.0-32.4 [facility] Comment on above: Order Comment: Speci men Type: BLOOD SPECIMENOrdering Facility: [facility] Address: [address] [place] [address] Performed By: #### 1 4979-9 ####[facility] LABORATORYCLIA [id number] [place] [address] [place] ALLIED HEALTHon 06-21-2021 ALLIED HEALTH Normal [facility] Basic metabolic 2000 panelon 06-21-2021 Anion gap [Moles/Vol] 8 mmol/L Low 9-18 [facility] Comment on above: Order Comment: Speci men Type: BLOOD SPECIMENOrdering Facility: [facility] Address: [address] [place] [address] Performed By: #### 2 4321-2, ####[facility] LABORATORYCLIA [id number] [place] [address] [place] Calcium [Mass/Vol] 8.2 mg/dL Low 8.5-10.2 [facility] Comment on above: Order Comment: Speci men Type: BLOOD SPECIMENOrdering Facility: [facility] Address: [address] [place] [address] Performed By: #### 2 4321-2, ####[facility] LABORATORYCLIA [id number] [place] [address] [place] Chloride [Moles/Vol] 108 mmol/L High 97-105 [facility] Comment on above: Order Comment: Speci men Type: BLOOD SPECIMENOrdering Facility: [facility] Address: [address] [place] [address] Performed By: #### 2 4320-2, ####[facility]ORATORYCLIA [id number] [place] [address] [place] CO2 [Moles/Vol] 24 mmol/L Normal 22-30 [facility] Comment on above: Order Comment: Speci men Type: BLOOD SPECIMENOrdering Facility: [facility] Address: [address] [place] [address] Performed By: #### 2 4321-2, ####[facility]ORATORYCLIA [id number] [place] [address] [place] Creatinine [Mass/Vol] 0.61 mg/dL Low 0.73-1.22 [facility] Comment on above: Order Comment: Speci men Type: BLOOD SPECIMENOrdering Facility: [facility] Address: [address] [place] [id number] Performed By: #### 2 4321-2, 76378-5 ####[facility] LABORATORYCLIA [id number] [place] [id number] [place] GFR/1.73 sq M.predicted MDRD (S/P/Bld) [Vol rate/Area] mL/min/{1.73_m2} Normal [facility] Comment on above: Order Comment: Shira feldman Type: BLOOD SPECIMENOrdering Facility: [facility] Address: [address] Result Comment: >60e GFR (Estimated GFR) [...] actual GFR. Performed By: #### 2 4321-2, 01110-1 ####[facility] LABORATORYCLIA [id number] [place] [id number] [place] Glucose [Mass/Vol] 211 mg/dL High 74-99 [facility] Comment on above: Order Comment: Shira feldman Type: BLOOD SPECIMENOrdering Facility: [facility] Address: [address] [place] [phone] Result Comment: The [place] Diabetes Association (ADA) provides guidance for cutoff [...] Standards of Medical Care in Diabetes 2016, [place] Diabetes Association. Diabetes Care. 2016.39(Suppl 1). Performed By: #### 2 4321-2, ####[facility] LABORATORYCLIA [id number] [address] OF [facility] Potassium [Moles/Vol] 4.3 mmol/L Normal 3.7-5.1 [facility] Comment on above: Order Comment: Speci men Type: BLOOD SPECIMENOrdering Facility: [facility] Address: [address] [place] [address] Performed By: #### 2 432-2, ####[facility] LABORATORYCLIA [id number] [address] OF [facility] Sodium [Moles/Vol] 140 mmol/L Normal 136-144 [facility] Comment on above: Order Comment: Speci men Type: BLOOD SPECIMENOrdering Facility: [facility] Address: [address] [place] [address] Performed By: #### 2 4320-06, ####[facility] LABORATORYCLIA [id number] [address] [place] Urea nitrogen [Mass/Vol] 26 mg/dL High 9-24 [facility] Comment on above: Order Comment: Speci men Type: BLOOD SPECIMENOrdering Facility: [facility] Address: [address] [place] [address] Performed By: #### 2 43205-08, ####[facility] LABORATORYCLIA [id number] [address] [place] CBC panel Auto (Bld)on 06-21 Erythrocyte distribution width (RBC) [Ratio] 16.1 % High 11.5-15.0 [facility] Comment on above: Order Comment: Speci men Type: BLOOD SPECIMENOrdering Facility: [facility] Address: [address] [place] [address] Performed By: #### 5 8410-2 ####[facility] LABORATORYCLIA [id number] [address] [facility] Hematocrit (Bld) [Volume fraction] 29.7 % Low 39.0-51.0 [facility] Comment on above: Order Comment: Speci men Type: BLOOD SPECIMENOrdering Facility: [facility] Address: [address] [place] [address] Performed By: #### 5 8410-2 ####[facility] LABORATORYCLIA [id number] [address] OF [facility] Hemoglobin (Bld) [Mass/Vol] 9.2 g/dL Low 13.0-17.0 [facility] Comment on above: Order Comment: Speci men Type: BLOOD SPECIMENOrdering Facility: [facility] Address: [address] [place] [address] Performed By: #### 5 8410-2 ####[facility] LABORATORYCLIA [id number] [address] MCH (RBC) [Entitic mass] 28.8 pg Normal 26.0-34.0 [facility] Comment on above: Order Comment: Speci men Type: BLOOD SPECIMENOrdering Facility: [facility] Address: [address] [place] [address] Performed By: #### 5 8410-2 ####[facility] LABORATORYCLIA [id number] [address] [place] MCHC (RBC) [Mass/Vol] 31.0 g/dL Normal 30.5-36.0 [facility] Comment on above: Order Comment: Speci men Type: BLOOD SPECIMENOrdering Facility: [facility] Address: [address] [place] [address] Performed By: #### 5 8410-2 ####[facility] LABORATORYCLIA [id number] [address] [place] MCV (RBC) [Entitic vol] 93.1 fL Normal 80.0-100.0 [facility] Comment on above: Order Comment: Speci men Type: BLOOD SPECIMENOrdering Facility: [facility] Address: [address] Performed By: #### 5 8410-2 ####[facility] LABORATORYCLIA [id number] [address] Nucleated RBC (Bld) [#/Vol] 10*3/uL Normal <0.01 [facility] Comment on above: Order Comment: Speci men Type: BLOOD SPECIMENOrdering Facility: [facility] Address: [address] [place] [address] Performed By: #### 5 8410-2 ####[facility] LABORATORYCLIA [id number] [address] Platelet mean volume (Bld) [Entitic vol] 11.6 fL Normal 9.0-12.7 [facility] Comment on above: Order Comment: Speci men Type: BLOOD SPECIMENOrdering Facility: [facility] Address: [address] [place] [address] Performed By: #### 5 8410-2 ####[facility] LABORATORYCLIA [id number] [address] Platelets (Bld) [#/Vol] 347 10*3/uL Normal 150-400 [facility] Comment on above: Order Comment: Speci men Type: BLOOD SPECIMENOrdering Facility: [facility] Address: [address] [place] [address] Performed By: #### 5 8410-2 ####[facility] LABORATORYCLIA [id number] [address] RBC (Bld) [#/Vol] 3.19 10*6/uL Low 4.20-6.00 [facility] Comment on above: Order Comment: Speci men Type: BLOOD SPECIMENOrdering Facility: [facility] Address: [address] [place] [address] Performed By: #### 5 8410-2 ####[facility] LABORATORYCLIA [id number] [address] [place] WBC (Bld) [#/Vol] 10.29 10*3/uL Normal 3.70-11.00 [facility] Comment on above: Order Comment: Speci men Type: BLOOD SPECIMENOrdering Facility: [facility] Address: [address] [place] [address] Performed By: #### 5 8410-2 ####[facility] LABORATORYCLIA [id number] [address] [facility] CONSULT PROGon 06-21-2021 CONSULT PROG Normal [facility] CONSULT PROG Normal [facility] Magnesium SerPl-mCncon 06-21 Magnesium [Mass/Vol] 2.5 mg/dL High 1.7-2.3 [facility] Comment on above: Order Comment: Speci men Type: BLOOD SPECIMENOrdering Facility: [facility] Address: [address] [place] [address] Performed By: #### 2 4321-2, 28740-3 ####[facility] LABORATORYCLIA [id number] [address] [place] NUTRITIONon 06-21-2021 NUTRITION Normal [facility] XR CHEST 1V FRONTALon 2021 XR CHEST 1V FRONTAL Normal [facility] aPTT PPPon 06-21-2021 aPTT Coag (PPP) [Time] 68.5 s High 23.0-32.4 [facility] Comment on above: Order Comment: Speci men Type: BLOOD SPECIMENOrdering Facility: [facility] Address: [address] [place] [address] Performed By: #### 1 4979-9 ####[facility] LABORATORYCLIA [id number] [address] aPTT Coag (PPP) [Time] 57.8 s High 23.0-32.4 [facility] Comment on above: Order Comment: Speci men Type: BLOOD SPECIMENOrdering Facility: [facility] Address: [address] [place] [address] Performed By: #### 1 4979-9 ####[facility] LABORATORYCLIA [id number] [place] [address] [place] Basic metabolic 2000 panelon 06-20-2021 Anion gap [Moles/Vol] 9 mmol/L Normal 9-18 [facility] Comment on above: Order Comment: Speci men Type: BLOOD SPECIMENOrdering Facility: [facility] Address: [address] [place] [address] Performed By: #### 2 432-2, ####[facility] LABORATORYCLIA [id number] [place] [address] [place] Calcium [Mass/Vol] 8.3 mg/dL Low 8.5-10.2 [facility] Comment on above: Order Comment: Speci men Type: BLOOD SPECIMENOrdering Facility: [facility] Address: [address] [place] [address] Performed By: #### 2 43205-08, ####[facility] LABORATORYCLIA [id number] [address] [place] Chloride [Moles/Vol] 111 mmol/L High 97-105 [facility] Comment on above: Order Comment: Speci men Type: BLOOD SPECIMENOrdering Facility: [facility] Address: [address] [place] [address] Performed By: #### 2 4322, ####[facility] LABORATORYCLIA [id number] [place] [address] [place] CO2 [Moles/Vol] 24 mmol/L Normal 22-30 [facility] Comment on above: Order Comment: Speci men Type: BLOOD SPECIMENOrdering Facility: [facility] Address: [address] [place] [address] Performed By: #### 2 4322, ####[facility] LABORATORYCLIA [id number] [place] [address] [place] Creatinine [Mass/Vol] 0.64 mg/dL Low 0.73-1.22 [facility] Comment on above: Order Comment: Shira feldman Type: BLOOD SPECIMENOrdering Facility: [facility] Address: [address] [id number] Performed By: #### 2 4321-2, ####[facility] LABORATORYCLIA [id number] [place] [address] [place] GFR/1.73 sq M.predicted MDRD (S/P/Bld) [Vol rate/Area] mL/min/{1.73_m2} Normal [facility] Comment on above: Order Comment: [facility] Type: BLOOD SPECIMENOrdering Facility: [facility] Address: [address] [place], [place] [phone] Result Comment: >60e GFR (Estimated GFR) Units [...] actual GFR. Performed By: #### 2 4321-2, ####[facility] LABORATORYCLIA [id number] [place] [address] [place] Glucose [Mass/Vol] 114 mg/dL High 74-99 [facility] Comment on above: Order Comment: Johncara feldman Type: BLOOD SPECIMENOrdering Facility: [facility] Address: [address] [place] [phone] Result Comment: The [place] Diabetes Association (ADA) provides guidance for cutoff [...] Standards of Medical Care in Diabetes 2016, [place] Diabetes Association. Diabetes Care. 2016.39(Suppl 1). Performed By: #### 2 1-2, ####[facility] LABORATORYCLIA [id number] [address] [place] OF [facility] Potassium [Moles/Vol] 4.1 mmol/L Normal 3.7-5.1 [facility] Comment on above: Order Comment: Speci men Type: BLOOD SPECIMENOrdering Facility: [facility] Address: [address] [place] [address] Performed By: #### 2 4320-06, ####[facility] LABORATORYCLIA [id number] [address] Sodium [Moles/Vol] 144 mmol/L Normal 136-144 [facility] Comment on above: Order Comment: Speci men Type: BLOOD SPECIMENOrdering Facility: [facility] Address: [address] [place] [address] Performed By: #### 2 4320-06, ####[facility] LABORATORYCLIA [id number] [address] STATES [facility] Urea nitrogen [Mass/Vol] 27 mg/dL High 9-24 [facility] Comment on above: Order Comment: Speci men Type: BLOOD SPECIMENOrdering Facility: [facility] Address: [address] [place] [address] Performed By: #### 2 4320-06, ####[facility] LABORATORYCLIA [id number] [address] [place] CASE MANAGEMon 06-20-2021 CASE MANAGEM Normal [facility] CBC panel Auto (Bld)on 06-20 Erythrocyte distribution width (RBC) [Ratio] 15.9 % High 11.5-15.0 [facility] Comment on above: Order Comment: Speci men Type: BLOOD SPECIMENOrdering Facility: [facility] Address: [address] [place] [address] Performed By: #### 5 8410-2 ####[facility] LABORATORYCLIA [id number] [address] Hematocrit (Bld) [Volume fraction] 31.0 % Low 39.0-51.0 [facility] Comment on above: Order Comment: Speci men Type: BLOOD SPECIMENOrdering Facility: [facility] Address: [address] [place] [address] Performed By: #### 5 8410-2 ####[facility] LABORATORYCLIA [id number] [address] [facility] Hemoglobin (Bld) [Mass/Vol] 9.2 g/dL Low 13.0-17.0 [facility] Comment on above: Order Comment: Speci men Type: BLOOD SPECIMENOrdering Facility: [facility] Address: [address] [place] [address] Performed By: #### 5 8410-2 ####[facility] LABORATORYCLIA [id number] [address] [facility] MCH (RBC) [Entitic mass] 27.4 pg Normal 26.0-34.0 [facility] Comment on above: Order Comment: Speci men Type: BLOOD SPECIMENOrdering Facility: [facility] Address: [address] [place] [address] Performed By: #### 5 8410-2 ####[facility] LABORATORYCLIA [id number] [address] [place] MCHC (RBC) [Mass/Vol] 29.7 g/dL Low 30.5-36.0 [facility] Comment on above: Order Comment: Speci men Type: BLOOD SPECIMENOrdering Facility: [facility] Address: [address] [place] [address] Performed By: #### 5 8410-2 ####[facility] LABORATORYCLIA [id number] [address] MCV (RBC) [Entitic vol] 92.3 fL Normal 80.0-100.0 [facility] Comment on above: Order Comment: Speci men Type: BLOOD SPECIMENOrdering Facility: [facility] Address: [address] [place] [address] Performed By: #### 5 8410-2 ####[facility] LABORATORYCLIA [id number] [address] Nucleated RBC (Bld) [#/Vol] 10*3/uL Normal <0.01 [facility] Comment on above: Order Comment: Speci men Type: BLOOD SPECIMENOrdering Facility: [facility] Address: [address] [place] [address] Performed By: #### 5 8410-2 ####[facility] LABORATORYCLIA [id number] [address] Platelet mean volume (Bld) [Entitic vol] 11.5 fL Normal 9.0-12.7 [facility] Comment on above: Order Comment: Speci men Type: BLOOD SPECIMENOrdering Facility: [facility] Address: [address] [place] [address] Performed By: #### 5 8410-2 ####[facility] LABORATORYCLIA [id number] [address] Platelets (Bld) [#/Vol] 343 10*3/uL Normal 150-400 [facility] Comment on above: Order Comment: Speci men Type: BLOOD SPECIMENOrdering Facility: [facility] Address: [address] [place] [address] Performed By: #### 5 8410-2 ####[facility] LABORATORYCLIA [id number] [address] RBC (Bld) [#/Vol] 3.36 10*6/uL Low 4.20-6.00 [facility] Comment on above: Order Comment: Speci men Type: BLOOD SPECIMENOrdering Facility: [facility] Address: [address] [place] [address] Performed By: #### 5 8410-2 ####[facility] LABORATORYCLIA [id number] [address] OF [facility] WBC (Bld) [#/Vol] 10.71 10*3/uL Normal 3.70-11.00 [facility] Comment on above: Order Comment: Speci men Type: BLOOD SPECIMENOrdering Facility: [facility] Address: [address] [place] [address] Performed By: #### 5 8410-2 ####[facility] LABORATORYCLIA [id number] [address] CONSULT PROGon 06-20-2021 CONSULT PROG Normal [facility] HEMOGLOBIN (HGB)on Hemoglobin (Bld) [Mass/Vol] 9.7 g/dL Low 13.0-17.0 [facility] Comment on above: Order Comment: Speci men Type: BLOOD SPECIMENOrdering Facility: [facility] Address: [address] [place] [address] Performed By: #### H GB ####[facility] LABORATORYCLIA [id number] [address] Magnesium SerPl-mCncon 06-20 Magnesium [Mass/Vol] 2.5 mg/dL High 1.7-2.3 [facility] Comment on above: Order Comment: Speci men Type: BLOOD SPECIMENOrdering Facility: [facility] Address: [address] [place] [address] Performed By: #### 2 4321-2, 62824-8 ####[facility] LABORATORYCLIA [id number] [address] [place] NURSING PROGon 06-20-2021 NURSING PROG Normal [facility] THERAPY NTon 06-20-2021 THERAPY NT Normal [facility] aPTT PPPon 06-20-2021 aPTT Coag (PPP) [Time] 93.5 s High 23.0-32.4 [facility] Comment on above: Order Comment: Speci men Type: BLOOD SPECIMENOrdering Facility: [facility] Address: [address] [place] [address] Performed By: #### 1 4979-9 ####[facility] LABORATORYCLIA [id number] [place] [address] [place] aPTT Coag (PPP) [Time] 47.1 s High 23.0-32.4 [facility] Comment on above: Order Comment: Speci men Type: BLOOD SPECIMENOrdering Facility: [facility] Address: [address] [place] [address] Performed By: #### 1 4979-9 ####[facility] LABORATORYCLIA [id number] [place] [address] [place] Basic metabolic 2000 panelon 06-19-2021 Anion gap [Moles/Vol] 7 mmol/L Low 9-18 [facility] Comment on above: Order Comment: Speci men Type: BLOOD SPECIMENOrdering Facility: [facility] Address: [address] [place] [address] Performed By: #### 2 4321-2 ####[facility] LABORATORYCLIA [id number] [place] [address] [place] Calcium [Mass/Vol] 8.1 mg/dL Low 8.5-10.2 [facility] Comment on above: Order Comment: Speci men Type: BLOOD SPECIMENOrdering Facility: [facility] Address: [address] [place] [address] Performed By: #### 2 4321-2 ####[facility] LABORATORYCLIA [id number] [place] [address] [place] Chloride [Moles/Vol] 111 mmol/L High 97-105 [facility] Comment on above: Order Comment: Speci men Type: BLOOD SPECIMENOrdering Facility: [facility] Address: [address] [place] [address] Performed By: #### 2 4321-2 ####[facility] LABORATORYCLIA [id number] [place] [address] [place] CO2 [Moles/Vol] 24 mmol/L Normal 22-30 [facility] Comment on above: Order Comment: Speci francia Type: BLOOD SPECIMENOrdering Facility: [facility] Address: [address] [place] [address] Performed By: #### 2 4321-2 ####[facility] LABORATORYCLIA [id number] [address] [place] Creatinine [Mass/Vol] 0.71 mg/dL Low 0.73-1.22 [facility] Comment on above: Order Comment: Speci men Type: BLOOD SPECIMENOrdering Facility: [facility] Address: [address] [place] [address] Performed By: #### 2 4321-2 ####[facility]ELCL[facility] [id number] [address] [place] GFR/1.73 sq M.predicted MDRD (S/P/Bld) [Vol rate/Area] mL/min/{1.73_m2} Normal [facility] Comment on above: Order Comment: Speci men Type: BLOOD SPECIMENOrdering Facility: [facility] Address: [address] [place] [address] Result Comment: >60e GFR (Estimated GFR) Units [...] actual GFR. Performed By: #### 2 4321-2 ####[facility] LABORATORYCLIA [id number] [address] [place] Glucose [Mass/Vol] 110 mg/dL High 74-99 [facility] Comment on above: Order Comment: Speci men Type: BLOOD SPECIMENOrdering Facility: [facility] Address: [address] [address] Result Comment: The [place] Diabetes Association (ADA) provides guidance for cutoff [...] Standards of Medical Care in Diabetes 2016, [place] Diabetes Association. Diabetes Care. 2016.39(Suppl 1). Performed By: #### 2 4321-2 ####[facility] LABORATORYCLIA [id number] [place] [address] [place] Potassium [Moles/Vol] 3.7 mmol/L Normal 3.7-5.1 [facility] Comment on above: Order Comment: Shira francia Type: BLOOD SPECIMENOrdering Facility: [facility] Address: [address] [place] [address] Performed By: #### 2 4321-2 ####[facility] LABORATORYCLIA [id number] [place] [address] [place] Sodium [Moles/Vol] 142 mmol/L Normal 136-144 [facility] Comment on above: Order Comment: Speci men Type: BLOOD SPECIMENOrdering Facility: [facility] Address: [address] Performed By: #### 2 4321-2 ####[facility] LABORATORYCLIA [id number] [place] [address] [place] Urea nitrogen [Mass/Vol] 26 mg/dL High 9-24 [facility] Comment on above: Order Comment: Speci men Type: BLOOD SPECIMENOrdering Facility: [facility] Address: [address] [address] Performed By: #### 2 4321-2 ####[facility] LABORATORYCLIA [id number] [address] CBC panel Auto (Bld)on 06-19 Erythrocyte distribution width (RBC) [Ratio] 15.7 % High 11.5-15.0 [facility] Comment on above: Order Comment: Speci men Type: BLOOD SPECIMENOrdering Facility: [facility] Address: [address] [place] [address] Performed By: #### 5 8410-2 ####[facility] LABORATORYCLIA [id number] [address] Hematocrit (Bld) [Volume fraction] 30.9 % Low 39.0-51.0 [facility] Comment on above: Order Comment: Speci men Type: BLOOD SPECIMENOrdering Facility: [facility] Address: [address] [place] [address] Performed By: #### 5 8410-2 ####[facility] LABORATORYCLIA [id number] [address] Hemoglobin (Bld) [Mass/Vol] 9.5 g/dL Low 13.0-17.0 [facility] Comment on above: Order Comment: Speci men Type: BLOOD SPECIMENOrdering Facility: [facility] Address: [address] [place] [address] Performed By: #### 5 8410-2 ####[facility] LABORATORYCLIA [id number] [address] MCH (RBC) [Entitic mass] 28.4 pg Normal 26.0-34.0 [facility] Comment on above: Order Comment: Speci men Type: BLOOD SPECIMENOrdering Facility: [facility] Address: [address] [place] [address] Performed By: #### 5 8410-2 ####[facility] LABORATORYCLIA [id number] [address] MCHC (RBC) [Mass/Vol] 30.7 g/dL Normal 30.5-36.0 [facility] Comment on above: Order Comment: Speci men Type: BLOOD SPECIMENOrdering Facility: [facility] Address: [address] [place] [address] Performed By: #### 5 8410-2 ####[facility] LABORATORYCLIA [id number] [address] [place] MCV (RBC) [Entitic vol] 92.2 fL Normal 80.0-100.0 [facility] Comment on above: Order Comment: Speci men Type: BLOOD SPECIMENOrdering Facility: [facility] Address: [address] [place] [address] Performed By: #### 5 8410-2 ####[facility] LABORATORYCLIA [id number] [address] [place] OF [facility] Nucleated RBC (Bld) [#/Vol] 10*3/uL Normal <0.01 [facility] Comment on above: Order Comment: Speci men Type: BLOOD SPECIMENOrdering Facility: [facility] Address: [address] [place] [address] Performed By: #### 5 8410-2 ####[facility] LABORATORYCLIA [id number] [address] [place] Platelet mean volume (Bld) [Entitic vol] 11.7 fL Normal 9.0-12.7 [facility] Comment on above: Order Comment: Speci men Type: BLOOD SPECIMENOrdering Facility: [facility] Address: [address] [place] [address] Performed By: #### 5 8410-2 ####[facility] LABORATORYCLIA [id number] [address] [place] Platelets (Bld) [#/Vol] 323 10*3/uL Normal 150-400 [facility] Comment on above: Order Comment: Speci men Type: BLOOD SPECIMENOrdering Facility: [facility] Address: [address] [place] [address] Performed By: #### 5 8410-2 ####[facility] LABORATORYCLIA [id number] [address] [facility] RBC (Bld) [#/Vol] 3.35 10*6/uL Low 4.20-6.00 [facility] Comment on above: Order Comment: Speci men Type: BLOOD SPECIMENOrdering Facility: [facility] Address: [address] [place] [address] Performed By: #### 5 8410-2 ####[facility] LABORATORYCLIA [id number] [address] [place] [facility] WBC (Bld) [#/Vol] 9.53 10*3/uL Normal 3.70-11.00 [facility] Comment on above: Order Comment: Speci men Type: BLOOD SPECIMENOrdering Facility: [facility] Address: [address] [place] [address] Performed By: #### 5 8410-2 ####[facility] LABORATORYCLIA [id number] [address] [place] HEMOGLOBIN (HGB)on Hemoglobin (Bld) [Mass/Vol] 9.7 g/dL Low 13.0-17.0 [facility] Comment on above: Order Comment: Speci men Type: BLOOD SPECIMENOrdering Facility: [facility] Address: [address] [place] [address] Performed By: #### H GB ####[facility] LABORATORYCLIA [id number] [address] Magnesium SerPl-mCncon 06-19 Magnesium [Mass/Vol] 2.5 mg/dL High 1.7-2.3 [facility] Comment on above: Order Comment: Speci men Type: BLOOD SPECIMENOrdering Facility: [facility] Address: [address] [place] [address] Performed By: #### 1 9123-9, 2777-1 ####[facility] LABORATORYCLIA [id number] [address] [place] NURSING PROGon 06-19-2021 NURSING PROG Normal [facility] Phosphate SerPl-mCncon 06-19 Phosphate [Mass/Vol] 2.6 mg/dL Low 2.7-4.8 [facility] Comment on above: Order Comment: Speci men Type: BLOOD SPECIMENOrdering Facility: [facility] Address: [address] [place] [address] Performed By: #### 1 9123-9, 2777-1 ####[facility] LABORATORYCLIA [id number] [address] aPTT PPPon 06-19-2021 aPTT Coag (PPP) [Time] 61.9 s High 23.0-32.4 [facility] Comment on above: Order Comment: Speci men Type: BLOOD SPECIMENOrdering Facility: [facility] Address: [address] [place] [address] Performed By: #### 1 4979-9 ####[facility] LABORATORYCLIA [id number] [address] aPTT Coag (PPP) [Time] 68.6 s High 23.0-32.4 [facility] Comment on above: Order Comment: Speci men Type: BLOOD SPECIMENOrdering Facility: [facility] Address: [address] [place] [address] Performed By: #### 1 4979-9 ####[facility] LABORATORYCLIA [id number] [address] STATES [facility] aPTT Coag (PPP) [Time] 83.2 s High 23.0-32.4 [facility] Comment on above: Order Comment: Speci men Type: BLOOD SPECIMENOrdering Facility: [facility] Address: [address] [place] [address] Performed By: #### 1 4979-9 ####[facility] LABORATORYCLIA [id number] [address] Basic metabolic 2000 panelon 06-18-2021 Anion gap [Moles/Vol] 7 mmol/L Low 9-18 [facility] Comment on above: Order Comment: Speci men Type: BLOOD SPECIMENOrdering Facility: [facility] Address: [address] [place] [address] Performed By: #### 2 4321-2, , 2776-05 ####[facility] LABORATORYCLIA [id number] [place] [address] [place] Calcium [Mass/Vol] 8.2 mg/dL Low 8.5-10.2 [facility] Comment on above: Order Comment: Speci men Type: BLOOD SPECIMENOrdering Facility: [facility] Address: [address] [place] [address] Performed By: #### 2 4321-2, , 2776-05 ####[facility] LABORATORYCLIA [id number] [address] [place] OF [facility] Chloride [Moles/Vol] 115 mmol/L High 97-105 [facility] Comment on above: Order Comment: Speci men Type: BLOOD SPECIMENOrdering Facility: [facility] Address: [address] [place] [address] Performed By: #### 2 4321-2, , 2776-05 ####[facility] LABORATORYCLIA [id number] [place] [address] [place] CO2 [Moles/Vol] 23 mmol/L Normal 22-30 [facility] Comment on above: Order Comment: Speci men Type: BLOOD SPECIMENOrdering Facility: [facility] Address: [address] [place] [address] Performed By: #### 2 4321-2, , 2776-05 ####[facility] LABORATORYCLIA [id number] [place] [address] [place] Creatinine [Mass/Vol] 0.70 mg/dL Low 0.73-1.22 [facility] Comment on above: Order Comment: Shira feldman Type: BLOOD SPECIMENOrdering Facility: [facility] Address: [address] [phone] Performed By: #### 2 4321-2, , 2776-05 ####[facility] LABORATORYCLIA [id number] [place] [address] [place] GFR/1.73 sq M.predicted MDRD (S/P/Bld) [Vol rate/Area] mL/min/{1.73_m2} Normal [facility] Comment on above: Order Comment: Johncara feldman Type: BLOOD SPECIMENOrdering Facility: [facility] Address: [address] [place], [place] [phone] Result Comment: >60e GFR (Estimated GFR) Units [...] Performed By: #### 2 4321-2, , 2776-05 ####[facility]PITALIA [id number] [place] [address] [place] Glucose [Mass/Vol] 105 mg/dL High 74-99 [facility] Comment on above: Order Comment: Shira francia Type: BLOOD SPECIMENOrdering Facility: [facility] Address: [address] [phone] Result Comment: The [place] Diabetes Association (ADA) provides guidance for cutoff [...] Standards of Medical Care in Diabetes 2016, [place] Diabetes Association. Diabetes Care. 2016.39(Suppl 1). Performed By: #### 2 4321-2, , 2776-05 ####[facility] LABORATORYCLIA [id number] [place] [address] [place] Potassium [Moles/Vol] 4.1 mmol/L Normal 3.7-5.1 [facility] Comment on above: Order Comment: Speci men Type: BLOOD SPECIMENOrdering Facility: [facility] Address: [address] [place] [address] Performed By: #### 2 4321-2, , 2776-05 ####[facility] LABORATORYCLIA [id number] [address] [place] Sodium [Moles/Vol] 145 mmol/L High 136-144 [facility] Comment on above: Order Comment: Speci men Type: BLOOD SPECIMENOrdering Facility: [facility] Address: [address] [place] [address] Performed By: #### 2 4321-2, , 2776-05 ####[facility] LABORATORYCLIA [id number] [address] [place] Urea nitrogen [Mass/Vol] 27 mg/dL High 9-24 [facility] Comment on above: Order Comment: Speci men Type: BLOOD SPECIMENOrdering Facility: [facility] Address: [address] [place] [address] Performed By: #### 2 4321-2, , 2776-05 ####[facility] LABORATORYCLIA [id number] [address] [place] CALCIUM IONIZED Bon 20 22 Calcium.ionized (BldV) [Mass/Vol] 1.22 mmol/L Normal 1.08-1.30 [facility] Comment on above: Order Comment: Speci men Type: BLOOD SPECIMENOrdering Facility: [facility] Address: [address] [place] [address] Performed By: #### I [place] ####[facility] LABORATORYCLIA [id number] [address] Calcium.ionized adjusted to pH 7.4 (Bld) [Moles/Vol] 1.23 mmol/L Normal 1.08-1.30 [facility] Comment on above: Order Comment: Speci men Type: BLOOD SPECIMENOrdering Facility: [facility] Address: [address] [place] [address] Performed By: #### I [place] ####[facility] LABORATORYCLIA [id number] [address] CBC panel Auto (Bld)on 06-18 Erythrocyte distribution width (RBC) [Ratio] 15.8 % High 11.5-15.0 [facility] Comment on above: Order Comment: Speci men Type: BLOOD SPECIMENOrdering Facility: [facility] Address: [address] [place] [address] Performed By: #### 5 8410-2 ####[facility] LABORATORYCLIA [id number] [address] OF [facility] Hematocrit (Bld) [Volume fraction] 29.5 % Low 39.0-51.0 [facility] Comment on above: Order Comment: Speci men Type: BLOOD SPECIMENOrdering Facility: [facility] Address: [address] [place] [address] Performed By: #### 5 8410-2 ####[facility] LABORATORYCLIA [id number] [address] [place] OF [facility] Hemoglobin (Bld) [Mass/Vol] 8.8 g/dL Low 13.0-17.0 [facility] Comment on above: Order Comment: Speci men Type: BLOOD SPECIMENOrdering Facility: [facility] Address: [address] [place] [address] Performed By: #### 5 8410-2 ####[facility] LABORATORYCLIA [id number] [address] MCH (RBC) [Entitic mass] 27.4 pg Normal 26.0-34.0 [facility] Comment on above: Order Comment: Speci men Type: BLOOD SPECIMENOrdering Facility: [facility] Address: [address] [place] [address] Performed By: #### 5 8410-2 ####[facility] LABORATORYCLIA [id number] [address] MCHC (RBC) [Mass/Vol] 29.8 g/dL Low 30.5-36.0 [facility] Comment on above: Order Comment: Speci men Type: BLOOD SPECIMENOrdering Facility: [facility] Address: [address] [place] [address] Performed By: #### 5 8410-2 ####[facility] LABORATORYCLIA [id number] [address] MCV (RBC) [Entitic vol] 91.9 fL Normal 80.0-100.0 [facility] Comment on above: Order Comment: Speci men Type: BLOOD SPECIMENOrdering Facility: [facility] Address: [address] [place] [address] Performed By: #### 5 8410-2 ####[facility] LABORATORYCLIA [id number] [address] Nucleated RBC (Bld) [#/Vol] 10*3/uL Normal <0.01 [facility] Comment on above: Order Comment: Speci men Type: BLOOD SPECIMENOrdering Facility: [facility] Address: [address] [place] [address] Performed By: #### 5 8410-2 ####[facility] LABORATORYCLIA [id number] [address] Platelet mean volume (Bld) [Entitic vol] 11.9 fL Normal 9.0-12.7 [facility] Comment on above: Order Comment: Speci men Type: BLOOD SPECIMENOrdering Facility: [facility] Address: [address] [place] [address] Performed By: #### 5 8410-2 ####[facility] LABORATORYCLIA [id number] [address] Platelets (Bld) [#/Vol] 291 10*3/uL Normal 150-400 [facility] Comment on above: Order Comment: Speci men Type: BLOOD SPECIMENOrdering Facility: [facility] Address: [address] [place] [address] Performed By: #### 5 8410-2 ####[facility] LABORATORYCLIA [id number] [address] [place] [facility] RBC (Bld) [#/Vol] 3.21 10*6/uL Low 4.20-6.00 [facility] Comment on above: Order Comment: Speci men Type: BLOOD SPECIMENOrdering Facility: [facility] Address: [address] [place] [address] Performed By: #### 5 8410-2 ####[facility] LABORATORYCLIA [id number] [address] [facility] WBC (Bld) [#/Vol] 10.19 10*3/uL Normal 3.70-11.00 [facility] Comment on above: Order Comment: Speci men Type: BLOOD SPECIMENOrdering Facility: [facility] Address: [address] [place] [address] Performed By: #### 5 8410-2 ####[facility] LABORATORYCLIA [id number] [address] FERRITIN BLDon 06-18-2021 Ferritin [Mass/Vol] 600.9 ng/mL High 30.3-565.7 [facility] Comment on above: Order Comment: Speci men Type: BLOOD SPECIMENOrdering Facility: [facility] Address: [address] [place] [address] Performed By: #### S ERFOL, IRON, FERR ####[facility] LABORATORYCLIA [id number] [address] [place] FOLATE SERUMon 06-18-2021 Folate [Mass/Vol] 14.3 ng/mL Normal >4.7 [facility] Comment on above: Order Comment: Speci men Type: BLOOD SPECIMENOrdering Facility: [facility] Address: [address] [place] [address] Performed By: #### S ERFOL, IRON, FERR ####[facility] LABORATORYCLIA [id number] [address] [facility] Gas and Carbon monoxide pane l (BldV)on 06-18-2021 Base excess Calc (BldV) [Moles/Vol] 0.5 mmol/L Normal 0-2 [facility] Comment on above: Order Comment: Speci men Type: VENOUS BLOOD SPECIMENOrdering Facility: [facility] Address: [address] [place] [address] Performed By: #### 2 4344-4 ####[facility] LABORATORYCLIA [id number] [address] Body temperature 97.34 [degF] Normal [facility] Comment on above: Order Comment: Speci men Type: VENOUS BLOOD SPECIMENOrdering Facility: [facility] Address: [address] [place] [address] Performed By: #### 2 4344-4 ####[facility] LABORATORYCLIA [id number] [address] STATES [facility] CALCIUM IONIZED, PH CORRECTED 1.26 mmol/L Normal 1.08-1.30 [facility] Comment on above: Order Comment: Speci men Type: VENOUS BLOOD SPECIMENOrdering Facility: [facility] Address: [address] [place] [address] Performed By: #### 2 4344-4 ####[facility] LABORATORYCLIA [id number] [address] Calcium.ionized (BldV) [Mass/Vol] 1.25 mmol/L Normal 1.08-1.30 [facility] Comment on above: Order Comment: Speci men Type: VENOUS BLOOD SPECIMENOrdering Facility: [facility] Address: [address] [place] [address] Performed By: #### 2 4344-4 ####[facility] LABORATORYCLIA [id number] [address] [place] Carboxyhemoglobin (BldV) [Mass fraction] 1.5 % Normal 0.0-2.0 [facility] Comment on above: Order Comment: Speci men Type: VENOUS BLOOD SPECIMENOrdering Facility: [facility] Address: [address] [place] [address] Result Comment: Carb oxyhemoglobin Reference Range for Smokers: 2.0-8.0% Performed By: #### 2 4344-4 ####[facility] LABORATORYCLIA [id number] [address] [place] CO2 (BldV) [Partial pressure] 38 mm[Hg] Low 42-55 [facility] Comment on above: Order Comment: Speci men Type: VENOUS BLOOD SPECIMENOrdering Facility: [facility] Address: [address] [place] [address] Performed By: #### 2 4344-4 ####[facility] LABORATORYCLIA [id number] [address] [place] CO2 [Moles/Vol] 22.9 mmol/L Low 25-29 [facility] Comment on above: Order Comment: Speci men Type: VENOUS BLOOD SPECIMENOrdering Facility: [facility] Address: [address] [place] [address] Performed By: #### 2 4344-4 ####[facility] LABORATORYCLIA [id number] [address] [place] CO2 adjusted to patient's actual temperature (BldV) [Partial pressure] 37 mmHg Low 42-55 [facility] Comment on above: Order Comment: Speci men Type: VENOUS BLOOD SPECIMENOrdering Facility: [facility] Address: [address] [place] [address] Performed By: #### 2 4344-4 ####[facility] LABORATORYCLIA [id number] [address] [place] Glucose [Mass/Vol] 103 mg/dL Normal 60-105 [facility] Comment on above: Order Comment: Speci men Type: VENOUS BLOOD SPECIMENOrdering Facility: [facility] Address: [address] [place] [address] Performed By: #### 2 4344-4 ####[facility] LABORATORYCLIA [id number] [address] [place] HCO3 (Bld) [Moles/Vol] 24.4 mmol/L Normal 24-[address] [facility] Comment on above: Order Comment: Speci men Type: VENOUS BLOOD SPECIMENOrdering Facility: [facility] Address: [address] [place] [address] Performed By: #### 2 4344-4 ####[facility] LABORATORYCLIA [id number] [address] [place] Hematocrit (Bld) [Volume fraction] 28.7 % Low 39.0-51.0 [facility] Comment on above: Order Comment: Speci men Type: VENOUS BLOOD SPECIMENOrdering Facility: [facility] Address: [address] [place] [address] Performed By: #### 2 4344-4 ####[facility] LABORATORYCLIA [id number] [address] [place] Hemoglobin (Bld) [Mass/Vol] 9.3 g/dL Low 13.0-17.0 [facility] Comment on above: Order Comment: Speci men Type: VENOUS BLOOD SPECIMENOrdering Facility: [facility] Address: [address] [place] [address] Performed By: #### 2 4344-4 ####[facility] LABORATORYCLIA [id number] [address] [place] Methemoglobin (Bld) [Mass fraction] % Normal 0.0-1.5 [facility] Comment on above: Order Comment: Speci men Type: VENOUS BLOOD SPECIMENOrdering Facility: [facility] Address: [address] [place] [address] Performed By: #### 2 4344-4 ####[facility]ORATORYCLIA [id number] [address] [place] O2 THERAPY Ventilator Normal [facility] Comment on above: Order Comment: Speci men Type: VENOUS BLOOD SPECIMENOrdering Facility: [facility] Address: [address] [place] [address] Performed By: #### 2 4344-4 ####[facility]ORATORYCLIA [id number] [address] [place] Oxygen (BldV) [Partial pressure] 37 mm[Hg] Normal 35-45 [facility] Comment on above: Order Comment: Speci men Type: VENOUS BLOOD SPECIMENOrdering Facility: [facility] Address: [address] [place] [address] Performed By: #### 2 4344-4 ####[facility]ORATORYCLIA [id number] [address] Oxygen adjusted to patient's actual temperature (BldV) [Partial pressure] 35.1 mmHg Normal 35-45 [facility] Comment on above: Order Comment: Speci men Type: VENOUS BLOOD SPECIMENOrdering Facility: [facility] Address: [address] [place] [address] Performed By: #### 2 4344-4 ####[facility]ORATORYCLIA [id number] [address] [place] Oxygen saturation in Blood 67.1 % Normal 60-85 [facility] Comment on above: Order Comment: Speci men Type: VENOUS BLOOD SPECIMENOrdering Facility: [facility] Address: [address] [place] [address] Performed By: #### 2 4344-4 ####[facility]ORATORYCLIA [id number] [place] [address] [place] Oxyhemoglobin (BldV) [Mass fraction] 66 % Normal 60-85 [facility] Comment on above: Order Comment: Speci men Type: VENOUS BLOOD SPECIMENOrdering Facility: [facility] Address: [address] [place] [address] Performed By: #### 2 4344-4 ####[facility] LABORATORYCLIA [id number] [place] [address] [place] pH (BldV) 7.42 [pH] Normal 7.32-7.42 [facility] Comment on above: Order Comment: Speci men Type: VENOUS BLOOD SPECIMENOrdering Facility: [facility] Address: [address] [place] [address] Performed By: #### 2 4344-4 ####[facility] LABORATORYCLIA [id number] [address] pH adjusted to patient's actual temperature (BldV) 7.43 High 7.32-7.42 [facility] Comment on above: Order Comment: Speci men Type: VENOUS BLOOD SPECIMENOrdering Facility: [facility] Address: [address] [place] [address] Performed By: #### 2 4344-4 ####[facility] LABORATORYCLIA [id number] [place] [address] [place] Potassium [Moles/Vol] 4.0 mmol/L Normal 3.5-5.0 [facility] Comment on above: Order Comment: Speci men Type: VENOUS BLOOD SPECIMENOrdering Facility: [facility] Address: [address] [place] [address] Performed By: #### 2 4344-4 ####[facility] LABORATORYCLIA [id number] [place] [address] [place] Sodium [Moles/Vol] 146 mmol/L High 136-144 [facility] Comment on above: Order Comment: Speci men Type: VENOUS BLOOD SPECIMENOrdering Facility: [facility] Address: [address] [place] [address] Performed By: #### 2 4344-4 ####[facility] LABORATORYCLIA [id number] [address] [place] HEMOGLOBIN (HGB)on 2 Hemoglobin (Bld) [Mass/Vol] 9.2 g/dL Low 13.0-17.0 [facility] Comment on above: Order Comment: Speci men Type: BLOOD SPECIMENOrdering Facility: [facility] Address: [address] [place] [address] Performed By: #### H GB ####[facility] LABORATORYCLIA [id number] [address] [place] IRON + TIBCon 06-18-2021 Iron [Mass/Vol] 27 ug/dL Low 41-186 [facility] Comment on above: Order Comment: Speci men Type: BLOOD SPECIMENOrdering Facility: [facility] Address: [address] [place] [address] Performed By: #### S ERFOL, IRON, FERR ####[facility] LABORATORYCLIA [id number] [address] [place] Iron binding capacity [Mass/Vol] 141 ug/dL Low 232-386 [facility] Comment on above: Order Comment: Speci men Type: BLOOD SPECIMENOrdering Facility: [facility] Address: [address] [place] [address] Performed By: #### S ERFOL, IRON, FERR ####[facility] LABORATORYCLIA [id number] [address] Iron saturation [Mass fraction] 19 % Normal 15-57 [facility] Comment on above: Order Comment: Speci men Type: BLOOD SPECIMENOrdering Facility: [facility] Address: [address] [place] [address] Performed By: #### S ERFOL, IRON, FERR ####[facility] LABORATORYCLIA [id number] [address] [place] Magnesium SerPl-mCncon 06-18 Magnesium [Mass/Vol] 2.5 mg/dL High 1.7-2.3 [facility] Comment on above: Order Comment: Speci men Type: BLOOD SPECIMENOrdering Facility: [facility] Address: [address] [place] [address] Performed By: #### 2 4321-2, 65145-5, 7- ####[facility] LABORATORYCLIA [id number] [address] [facility] NURSING PROGon 06-18-2021 NURSING PROG Normal [facility] Phosphate SerPl-mCncon 06-18 Phosphate [Mass/Vol] 3.0 mg/dL Normal 2.7-4.8 [facility] Comment on above: Order Comment: Speci men Type: BLOOD SPECIMENOrdering Facility: [facility] Address: [address] [place] [address] Performed By: #### 2 4321-2, , 2776-05 ####[facility] LABORATORYCLIA [id number] [address] [facility] THERAPY NTon 06-18-2021 THERAPY NT Normal [facility] aPTT PPPon 06-18-2021 aPTT Coag (PPP) [Time] 43.0 s High 23.0-32.4 [facility] Comment on above: Order Comment: Speci men Type: BLOOD SPECIMENOrdering Facility: [facility] Address: [address] [place] [address] Performed By: #### 1 4979-9 ####[facility] LABORATORYCLIA [id number] [place] [address] [place] aPTT Coag (PPP) [Time] 60.6 s High 23.0-32.4 [facility] Comment on above: Order Comment: Speci men Type: BLOOD SPECIMENOrdering Facility: [facility] Address: [address] [place] [address] Performed By: #### 1 4979-9 ####[facility] LABORATORYCLIA [id number] [place] [address] [place] aPTT Coag (PPP) [Time] 46.4 s High 23.0-32.4 [facility] Comment on above: Order Comment: Speci men Type: BLOOD SPECIMENOrdering Facility: [facility] Address: [address] [place] [address] Performed By: #### 1 4979-9 ####[facility] LABORATORYCLIA [id number] [place] [address] [place] Basic metabolic 2000 panelon 06-17-2021 Anion gap [Moles/Vol] 7 mmol/L Low 9-18 [facility] Comment on above: Order Comment: Speci men Type: BLOOD SPECIMENOrdering Facility: [facility] Address: [address] [place] [address] Performed By: #### 2 951-2, , 2776-, 64161-9 ####[facility] LABORATORYCLIA [id number] [place] [address] [place] Calcium [Mass/Vol] 8.1 mg/dL Low 8.5-10.2 [facility] Comment on above: Order Comment: Speci men Type: BLOOD SPECIMENOrdering Facility: [facility] Address: [address] [place] [address] Performed By: #### 2 951-2, , 2776-1, 05150-4 ####[facility] LABORATORYCLIA [id number] [place] [address] [place] Chloride [Moles/Vol] 113 mmol/L High 97-105 [facility] Comment on above: Order Comment: Speci men Type: BLOOD SPECIMENOrdering Facility: [facility] Address: [address] [place] [address] Performed By: #### 2 951-2, , 2776-1, 69741-9 ####[facility] LABORATORYCLIA [id number] [place] [address] [place] CO2 [Moles/Vol] 25 mmol/L Normal 22-30 [facility] Comment on above: Order Comment: Shira feldman Type: BLOOD SPECIMENOrdering Facility: [facility] Address: [address] Performed By: #### 2 951-2, , 2776-05, ####[facility] LABORATORYCLIA [id number] [place] [address] [place] Creatinine [Mass/Vol] 0.70 mg/dL Low 0.73-1.22 [facility] Comment on above: Order Comment: Shira feldman Type: BLOOD SPECIMENOrdering Facility: [facility] Address: [address] [place] [address] Performed By: #### 2 951-2, , 2776-05, ####[facility] LABORATORYCLIA [id number] [place] [address] [place] GFR/1.73 sq M.predicted MDRD (S/P/Bld) [Vol rate/Area] mL/min/{1.73_m2} Normal [facility] Comment on above: Order Comment: Johncara feldman Type: BLOOD SPECIMENOrdering Facility: [facility] Address: [address] [place] [address] Result Comment: >60e GFR (Estimated GFR) Units [...] actual GFR. Performed By: #### 2 951-2, , 2776-05, ####[facility] LABORATORYCLIA [id number] [place] [id number] [place] Glucose [Mass/Vol] 122 mg/dL High 74-99 [facility] Comment on above: Order Comment: Shira men Type: BLOOD SPECIMENOrdering Facility: [facility] Address: [address] [place], [place] [address] Result Comment: The [place] Diabetes Association (ADA) provides guidance for cutoff [...] Standards of Medical Care in Diabetes 2016, [place] Diabetes Association. Diabetes Care. 2016.39(Suppl 1). Performed By: #### 2 951-2, 17719-8, 2776-1, 19503-7 ####[facility] LABORATORYCLIA [id number] [place] [address] [place] Potassium [Moles/Vol] 3.5 mmol/L Low 3.7-5.1 [facility] Comment on above: Order Comment: Shira feldman Type: BLOOD SPECIMENOrdering Facility: [facility] Address: [address] [place], [place] [address] Performed By: #### 2 951-2, 27444-3, 2776-1, 77048-4 ####[facility] LABORATORYCLIA [id number] [place] [address] [place] Urea nitrogen [Mass/Vol] 27 mg/dL High 9-24 [facility] Comment on above: Order Comment: Shira feldman Type: BLOOD SPECIMENOrdering Facility: [facility] Address: [address] [place], [place] [address] Performed By: #### 2 951-2, 53142-4, 2776-1, 87187-4 ####[facility] LABORATORYCLIA [id number] [address] [place] CASE MANAGEMon 06-17-2021 CASE MANAGEM Normal [facility] CBC panel Auto (Bld)on 06-17 Erythrocyte distribution width (RBC) [Ratio] 15.9 % High 11.5-15.0 [facility] Comment on above: Order Comment: Speci men Type: BLOOD SPECIMENOrdering Facility: [facility] Address: [address] [place] [address] Performed By: #### 5 8410-2 ####[facility] LABORATORYCLIA [id number] [address] Hematocrit (Bld) [Volume fraction] 28.9 % Low 39.0-51.0 [facility] Comment on above: Order Comment: Speci men Type: BLOOD SPECIMENOrdering Facility: [facility] Address: [address] [place] [address] Performed By: #### 5 8410-2 ####[facility] LABORATORYCLIA [id number] [address] [facility] Hemoglobin (Bld) [Mass/Vol] 8.8 g/dL Low 13.0-17.0 [facility] Comment on above: Order Comment: Speci men Type: BLOOD SPECIMENOrdering Facility: [facility] Address: [address] [place] [address] Performed By: #### 5 8410-2 ####[facility] LABORATORYCLIA [id number] [address] STATES [facility] MCH (RBC) [Entitic mass] 28.4 pg Normal 26.0-34.0 [facility] Comment on above: Order Comment: Speci men Type: BLOOD SPECIMENOrdering Facility: [facility] Address: [address] [place] [address] Performed By: #### 5 8410-2 ####[facility] LABORATORYCLIA [id number] [address] [place] MCHC (RBC) [Mass/Vol] 30.4 g/dL Low 30.5-36.0 [facility] Comment on above: Order Comment: Speci men Type: BLOOD SPECIMENOrdering Facility: [facility] Address: [address] [place] [address] Performed By: #### 5 8410-2 ####[facility] LABORATORYCLIA [id number] [address] MCV (RBC) [Entitic vol] 93.2 fL Normal 80.0-100.0 [facility] Comment on above: Order Comment: Speci men Type: BLOOD SPECIMENOrdering Facility: [facility] Address: [facility] [address] Performed By: #### 5 8410-2 ####[facility] LABORATORYCLIA [id number] [address] Nucleated RBC (Bld) [#/Vol] 10*3/uL Normal <0.01 [facility] Comment on above: Order Comment: Speci men Type: BLOOD SPECIMENOrdering Facility: [facility] Address: [address] [place] [address] Performed By: #### 5 8410-2 ####[facility] LABORATORYCLIA [id number] [address] Platelet mean volume (Bld) [Entitic vol] 11.9 fL Normal 9.0-12.7 [facility] Comment on above: Order Comment: Speci men Type: BLOOD SPECIMENOrdering Facility: [facility] Address: [address] Performed By: #### 5 8410-2 ####[facility] LABORATORYCLIA [id number] [address] Platelets (Bld) [#/Vol] 257 10*3/uL Normal 150-400 [facility] Comment on above: Order Comment: Speci men Type: BLOOD SPECIMENOrdering Facility: [facility] Address: [address] [place] [address] Performed By: #### 5 8410-2 ####[facility] LABORATORYCLIA [id number] [address] [place] RBC (Bld) [#/Vol] 3.10 10*6/uL Low 4.20-6.00 [facility] Comment on above: Order Comment: Speci men Type: BLOOD SPECIMENOrdering Facility: [facility] Address: [address] [place] [address] Performed By: #### 5 8410-2 ####[facility] LABORATORYCLIA [id number] [place] [address] [place] WBC (Bld) [#/Vol] 10.54 10*3/uL Normal 3.70-11.00 [facility] Comment on above: Order Comment: Speci men Type: BLOOD SPECIMENOrdering Facility: [facility] Address: [address] [place] [address] Performed By: #### 5 8410-2 ####[facility] LABORATORYCLIA [id number] [address] HEMOGLOBIN (HGB)on Hemoglobin (Bld) [Mass/Vol] 8.8 g/dL Low 13.0-17.0 [facility] Comment on above: Order Comment: Speci men Type: BLOOD SPECIMENOrdering Facility: [facility] Address: [address] [place] [address] Performed By: #### H GB ####[facility] LABORATORYCLIA [id number] [address] [place] Magnesium SerPl-mCncon 06-17 Magnesium [Mass/Vol] 2.5 mg/dL High 1.7-2.3 [facility] Comment on above: Order Comment: Speci men Type: BLOOD SPECIMENOrdering Facility: [facility] Address: [address] [place] [address] Performed By: #### 2 951-2, 25657-7, 2777-1, 03699-4 ####[facility] LABORATORYCLIA [id number] [address] [place] NURSING PROGon 06-17-2021 NURSING PROG Normal [facility] NURSING PROG Normal [facility] NURSING PROG Normal [facility] Phosphate SerPl-mCncon 06-17 Phosphate [Mass/Vol] 1.9 mg/dL Low 2.7-4.8 [facility] Comment on above: Order Comment: Speci men Type: BLOOD SPECIMENOrdering Facility: [facility] Address: [address] [place] [address] Performed By: #### 2 951-2, 36739-5, 2777-, 61118-7 ####[facility] LABORATORYCLIA [id number] [place] [address] [place] Sodium SerPl-sCncon 06-17-19 22 Sodium [Moles/Vol] 144 mmol/L Normal 136-144 [facility] Comment on above: Order Comment: Speci men Type: BLOOD SPECIMENOrdering Facility: [facility] Address: [address] [place] [address] Performed By: #### 2 951-2 ####[facility] [id number] [place] [address] [place] [place] Sodium [Moles/Vol] 145 mmol/L High 136-144 [facility] Comment on above: Order Comment: Speci men Type: BLOOD SPECIMENOrdering Facility: [facility] Address: [address] [place] [address] Performed By: #### 2 951-2, 65274-4, 2777-, 00806-7 ####[facility] LABORATORYCLIA [id number] [place] [address] [place] aPTT PPPon 06-17-2021 aPTT Coag (PPP) [Time] 55.8 s High 23.0-32.4 [facility] Comment on above: Order Comment: Speci men Type: BLOOD SPECIMENOrdering Facility: [facility] Address: [address] [place] [address] Performed By: #### 1 4979-9 ####[facility] LABORATORYCLIA [id number] [address] ARTERIAL BLOOD GASESon 06-16 Base excess Calc (Bld) [Moles/Vol] 3 mmol/L High 0-2 [facility] Comment on above: Order Comment: Speci men Type: ARTERIAL BLOOD SPECIMENOrdering Facility: [facility] Address: [address] [place] [address] Performed By: #### A LLBG ####[facility] LABORATORYCLIA [id number] [address] Body temperature 99.14 [degF] Normal [facility] Comment on above: Order Comment: Speci men Type: ARTERIAL BLOOD SPECIMENOrdering Facility: [facility] Address: [address] [place] [address] Performed By: #### A LLBG ####[facility] LABORATORYCLIA [id number] [address] [place] CALCIUM IONIZED, PH CORRECTED 1.21 mmol/L Normal 1.08-1.30 [facility] Comment on above: Order Comment: Speci men Type: ARTERIAL BLOOD SPECIMENOrdering Facility: [facility] Address: [address] [place] [address] Performed By: #### A LLBG ####[facility] LABORATORYCLIA [id number] [address] [place] Calcium.ionized (BldV) [Mass/Vol] 1.17 mmol/L Normal 1.08-1.30 [facility] Comment on above: Order Comment: Speci men Type: ARTERIAL BLOOD SPECIMENOrdering Facility: [facility] Address: [address] [place] [address] Performed By: #### A LLBG ####[facility] LABORATORYCLIA [id number] [address] [place] Carboxyhemoglobin (BldA) [Mass fraction] 1.4 % Normal 0.0-2.0 [facility] Comment on above: Order Comment: Speci men Type: ARTERIAL BLOOD SPECIMENOrdering Facility: [facility] Address: [address] [address] Result Comment: Carb oxyhemoglobin Reference Range for Smokers: 2.0-8.0% Performed By: #### A LLBG ####[facility] LABORATORYCLIA [id number] [address] [place] CO2 (Bld) [Partial pressure] 38 mm Hg Normal 36-46 [facility] Comment on above: Order Comment: Speci men Type: ARTERIAL BLOOD SPECIMENOrdering Facility: [facility] Address: [address] [place] [address] Performed By: #### A LLBG ####[facility] LABORATORYCLIA [id number] [address] [place] CO2 [Moles/Vol] 24.5 mmol/L Normal 22-28 [facility] Comment on above: Order Comment: Speci men Type: ARTERIAL BLOOD SPECIMENOrdering Facility: [facility] Address: [address] [place] [address] Performed By: #### A LLBG ####[facility] LABORATORYCLIA [id number] [address] [place] CO2 adjusted to patient's actual temperature (Bld) [Partial pressure] 38 mmHg Normal 36-46 [facility] Comment on above: Order Comment: Speci men Type: ARTERIAL BLOOD SPECIMENOrdering Facility: [facility] Address: [address] [place] [address] Performed By: #### A LLBG ####[facility]ORATORYCLIA [id number] [place] [address] [place] Glucose [Mass/Vol] 147 mg/dL High 60-105 [facility] Comment on above: Order Comment: Speci men Type: ARTERIAL BLOOD SPECIMENOrdering Facility: [facility] Address: [address] [place] [address] Performed By: #### A LLBG ####[facility] LABORATORYCLIA [id number] [place] [address] [place] HCO3 (Bld) [Moles/Vol] 27 mmol/L High 22-26 [facility] Comment on above: Order Comment: Speci men Type: ARTERIAL BLOOD SPECIMENOrdering Facility: [facility] Address: [address] [place] [address] Performed By: #### A LLBG ####[facility] LABORATORYCLIA [id number] [address] Hematocrit (Bld) [Volume fraction] 31.8 % Low 39.0-51.0 [facility] Comment on above: Order Comment: Speci men Type: ARTERIAL BLOOD SPECIMENOrdering Facility: [facility] Address: [address] [place] [address] Performed By: #### A LLBG ####[facility] LABORATORYCLIA [id number] [address] Hemoglobin (Bld) [Mass/Vol] 10.3 g/dL Low 13.0-17.0 [facility] Comment on above: Order Comment: Speci men Type: ARTERIAL BLOOD SPECIMENOrdering Facility: [facility] Address: [address] [place] [address] Performed By: #### A LLBG ####[facility] LABORATORYCLIA [id number] [address] Methemoglobin (Bld) [Mass fraction] 1.0 % Normal 0.0-1.5 [facility] Comment on above: Order Comment: Speci men Type: ARTERIAL BLOOD SPECIMENOrdering Facility: [facility] Address: [address] [place] [address] Performed By: #### A LLBG ####[facility] LABORATORYCLIA [id number] [address] O2 THERAPY Ventilator Normal [facility] Comment on above: Order Comment: Speci men Type: ARTERIAL BLOOD SPECIMENOrdering Facility: [facility] Address: [address] [place] [address] Performed By: #### A LLBG ####[facility] LABORATORYCLIA [id number] [address] Oxygen (Bld) [Partial pressure] 78 mm Hg Low 85-95 [facility] Comment on above: Order Comment: Speci men Type: ARTERIAL BLOOD SPECIMENOrdering Facility: [facility] Address: [address] [place] [address] Performed By: #### A LLBG ####[facility] LABORATORYCLIA [id number] [address] [facility] Oxygen adjusted to patient's actual temperature (Bld) [Partial pressure] 79.7 mmHg Low 85-95 [facility] Comment on above: Order Comment: Speci men Type: ARTERIAL BLOOD SPECIMENOrdering Facility: [facility] Address: [address] [place] [address] Performed By: #### A LLBG ####[facility] LABORATORYCLIA [id number] [address] [place] OXYGEN SATURATION, ARTERIAL 96 % Normal 95-98 [facility] Comment on above: Order Comment: Speci men Type: ARTERIAL BLOOD SPECIMENOrdering Facility: [facility] Address: [address] [place] [address] Performed By: #### A LLBG ####[facility] LABORATORYCLIA [id number] [address] Oxyhemoglobin (BldA) [Mass fraction] 94 % Low 95-98 [facility] Comment on above: Order Comment: Speci men Type: ARTERIAL BLOOD SPECIMENOrdering Facility: [facility] Address: [address] [place] [address] Performed By: #### A LLBG ####[facility] LABORATORYCLIA [id number] [address] [place] pH (Bld) 7.47 [pH] High 7.35-7.45 [facility] Comment on above: Order Comment: Speci men Type: ARTERIAL BLOOD SPECIMENOrdering Facility: [facility] Address: [address] [place] [address] Performed By: #### A LLBG ####[facility] LABORATORYCLIA [id number] [address] [place] pH adjusted to patient's actual temperature (Bld) 7.46 High 7.35-7.45 [facility] Comment on above: Order Comment: Speci men Type: ARTERIAL BLOOD SPECIMENOrdering Facility: [facility] Address: [address] [place] [address] Performed By: #### A LLBG ####[facility] LABORATORYCLIA [id number] [address] [facility] Potassium [Moles/Vol] 3.7 mmol/L Normal 3.5-5.0 [facility] Comment on above: Order Comment: Speci men Type: ARTERIAL BLOOD SPECIMENOrdering Facility: [facility] Address: [address] [place] [address] Performed By: #### A LLBG ####[facility] LABORATORYCLIA [id number] [address] STATES [facility] Sodium [Moles/Vol] 155 mmol/L High 136-144 [facility] Comment on above: Order Comment: Speci men Type: ARTERIAL BLOOD SPECIMENOrdering Facility: [facility] Address: [address] [place] [address] Performed By: #### A LLBG ####[facility] LABORATORYCLIA [id number] [address] [place] Bacteria Spec Resp Culton Bacteria identified Respiratory culture Nom (Unsp spec) CULTURE, RESPIRATORY: Rare Normal respiratory chris present ORGANISM ID: 1 Few Yeast, not cryptococcus neoformans GRAM STAIN: No organisms seen Few Polymorphonuclear leukocytes Few Epithelial cells Abnormal [facility] Comment on above: Performed By: #### 3 2355-0 ####[facility] LABORATORYCLIA [id number] [place] [address] [place] Basic metabolic 2000 panelon 06-16-2021 Anion gap [Moles/Vol] 9 mmol/L Normal 9-18 [facility] Comment on above: Order Comment: Speci men Type: BLOOD SPECIMENOrdering Facility: [facility] Address: [address] [address] Performed By: #### 2 4321-2 ####[facility] LABORATORYCLIA [id number] [place] [address] [place] Calcium [Mass/Vol] 8.4 mg/dL Low 8.5-10.2 [facility] Comment on above: Order Comment: Speci men Type: BLOOD SPECIMENOrdering Facility: [facility] Address: [address] [address] Performed By: #### 2 4321-2 ####[facility] LABORATORYCLIA [id number] [place] [address] [place] Chloride [Moles/Vol] 120 mmol/L High 97-105 [facility] Comment on above: Order Comment: Speci men Type: BLOOD SPECIMENOrdering Facility: [facility] Address: [address] [address] Performed By: #### 2 4321-2 ####[facility] LABORATORYCLIA [id number] [place] [address] [place] CO2 [Moles/Vol] 27 mmol/L Normal 22-30 [facility] Comment on above: Order Comment: Speci men Type: BLOOD SPECIMENOrdering Facility: [facility] Address: [address] [place] [address] Performed By: #### 2 4321-2 ####[facility] LABORATORYCLIA [id number] [place] [address] [place] Creatinine [Mass/Vol] 0.75 mg/dL Normal 0.73-1.22 [facility] Comment on above: Order Comment: Speci men Type: BLOOD SPECIMENOrdering Facility: [facility] Address: [address] [address] Performed By: #### 2 4321-2 ####[facility] LABORATORYCLIA [id number] [place] [address] [place] GFR/1.73 sq M.predicted MDRD (S/P/Bld) [Vol rate/Area] mL/min/{1.73_m2} Normal [facility] Comment on above: Order Comment: Johncara feldman Type: BLOOD SPECIMENOrdering Facility: [facility] Address: [address] [place] [address] Result Comment: >60e GFR (Estimated GFR) Units [...] actual GFR. Performed By: #### 2 4321-2 ####[facility] LABORATORYCLIA [id number] [place] [address] [place] Glucose [Mass/Vol] 160 mg/dL High 74-99 [facility] Comment on above: Order Comment: Shira feldman Type: BLOOD SPECIMENOrdering Facility: [facility] Address: [address] [place] [address] Result Comment: The [place] Diabetes Association (ADA) provides guidance for cutoff [...] Standards of Medical Care in Diabetes 2016, [place] Diabetes Association. Diabetes Care. 2016.39(Suppl 1). Performed By: #### 2 4321-2 ####[facility] LABORATORYCLIA [id number] [place] [address] [place] Potassium [Moles/Vol] 3.1 mmol/L Low 3.7-5.1 [facility] Comment on above: Order Comment: Speci men Type: BLOOD SPECIMENOrdering Facility: [facility] Address: [address] [place] [address] Performed By: #### 2 4321-2 ####[facility] LABORATORYCLIA [id number] [address] STATES OF [facility] Sodium [Moles/Vol] 156 mmol/L High 136-144 [facility] Comment on above: Order Comment: Speci men Type: BLOOD SPECIMENOrdering Facility: [facility] Address: [address] [place] [address] Performed By: #### 2 4321-2 ####[facility] LABORATORYCLIA [id number] [address] Urea nitrogen [Mass/Vol] 33 mg/dL High 9-24 [facility] Comment on above: Order Comment: Speci men Type: BLOOD SPECIMENOrdering Facility: [facility] Address: [address] [place] [address] Performed By: #### 2 4321-2 ####[facility] LABORATORYCLIA [id number] [address] CASE MANAGEMon 06-16-2021 CASE MANAGEM Normal [facility] CBC panel Auto (Bld)on 06-16 Erythrocyte distribution width (RBC) [Ratio] 15.9 % High 11.5-15.0 [facility] Comment on above: Order Comment: Speci men Type: BLOOD SPECIMENOrdering Facility: [facility] Address: [address] [place] [address] Performed By: #### 5 8410-2 ####[facility] LABORATORYCLIA [id number] [address] Hematocrit (Bld) [Volume fraction] 34.6 % Low 39.0-51.0 [facility] Comment on above: Order Comment: Speci men Type: BLOOD SPECIMENOrdering Facility: [facility] Address: [address] [place] [address] Performed By: #### 5 8410-2 ####[facility] LABORATORYCLIA [id number] [address] Hemoglobin (Bld) [Mass/Vol] 10.2 g/dL Low 13.0-17.0 [facility] Comment on above: Order Comment: Speci men Type: BLOOD SPECIMENOrdering Facility: [facility] Address: [address] [place] [address] Performed By: #### 5 8410-2 ####[facility] LABORATORYCLIA [id number] [address] [facility] MCH (RBC) [Entitic mass] 28.5 pg Normal 26.0-34.0 [facility] Comment on above: Order Comment: Speci men Type: BLOOD SPECIMENOrdering Facility: [facility] Address: [address] [place] [address] Performed By: #### 5 8410-2 ####[facility] LABORATORYCLIA [id number] [address] MCHC (RBC) [Mass/Vol] 29.5 g/dL Low 30.5-36.0 [facility] Comment on above: Order Comment: Speci men Type: BLOOD SPECIMENOrdering Facility: [facility] Address: [address] [place] [address] Performed By: #### 5 8410-2 ####[facility] LABORATORYCLIA [id number] [address] STATES [facility] MCV (RBC) [Entitic vol] 96.6 fL Normal 80.0-100.0 [facility] Comment on above: Order Comment: Speci men Type: BLOOD SPECIMENOrdering Facility: [facility] Address: [address] [place] [address] Performed By: #### 5 8410-2 ####[facility] LABORATORYCLIA [id number] [address] Nucleated RBC (Bld) [#/Vol] 10*3/uL Normal <0.01 [facility] Comment on above: Order Comment: Speci men Type: BLOOD SPECIMENOrdering Facility: [facility] Address: [address] [place] [address] Performed By: #### 5 8410-2 ####[facility] LABORATORYCLIA [id number] [address] Platelet mean volume (Bld) [Entitic vol] 11.9 fL Normal 9.0-12.7 [facility] Comment on above: Order Comment: Speci men Type: BLOOD SPECIMENOrdering Facility: [facility] Address: [address] [place] [address] Performed By: #### 5 8410-2 ####[facility] LABORATORYCLIA [id number] [address] [place] Platelets (Bld) [#/Vol] 269 10*3/uL Normal 150-400 [facility] Comment on above: Order Comment: Speci men Type: BLOOD SPECIMENOrdering Facility: [facility] Address: [address] [place] [address] Performed By: #### 5 8410-2 ####[facility] LABORATORYCLIA [id number] [address] [place] RBC (Bld) [#/Vol] 3.58 10*6/uL Low 4.20-6.00 [facility] Comment on above: Order Comment: Speci men Type: BLOOD SPECIMENOrdering Facility: [facility] Address: [address] [place], [place] [address] Performed By: #### 5 8410-2 ####[facility] LABORATORYCLIA [id number] [place] [address] [place] WBC (Bld) [#/Vol] 13.11 10*3/uL High 3.70-11.00 [facility] Comment on above: Order Comment: Speci men Type: BLOOD SPECIMENOrdering Facility: [facility] Address: [address] [place] [address] Performed By: #### 5 8410-2 ####[facility] LABORATORYCLIA [id number] [place] [address] [place] CONSULTon 06-16-2021 CONSULT Normal [facility] CONSULT PROGon 06-16-2021 CONSULT PROG Normal [facility] CT BRAIN WO IVCONon 06-16-[address] BRAIN WO IVCON Normal [facility] HEMOGLOBIN (HGB)on 2 Hemoglobin (Bld) [Mass/Vol] 8.9 g/dL Low 13.0-17.0 [facility] Comment on above: Order Comment: Speci men Type: BLOOD SPECIMENOrdering Facility: [facility] Address: [address] [place] [address] Performed By: #### H GB ####[facility] LABORATORYCLIA [id number] [address] STATES [facility] Hemoglobin (Bld) [Mass/Vol] 9.6 g/dL Low 13.0-17.0 [facility] Comment on above: Order Comment: Speci men Type: BLOOD SPECIMENOrdering Facility: [facility] Address: [address] [place] [address] Performed By: #### H GB ####[facility] LABORATORYCLIA [id number] [address] [place] Magnesium SerPl-mCncon 06-16 Magnesium [Mass/Vol] 2.7 mg/dL High 1.7-2.3 [facility] Comment on above: Order Comment: Speci men Type: BLOOD SPECIMENOrdering Facility: [facility] Address: [address] [place] [address] Performed By: #### 1 9123-9 ####[facility] LABORATORYCLIA [id number] [place] [address] [place] NURSING PROGon 06-16-2021 NURSING PROG Normal [facility] NUTRITIONon 06-16-2021 NUTRITION Normal [facility] Phosphate SerPl-mCncon 06-16 Phosphate [Mass/Vol] 1.4 mg/dL Low 2.7-4.8 [facility] Comment on above: Order Comment: Speci men Type: BLOOD SPECIMENOrdering Facility: [facility] Address: [address] [place] [address] Performed By: #### 2 777-1 ####[facility] LABORATORYCLIA [id number] [place] [address] [place] STAPH AUREUS PCRon 2 S. aureus and MRSA panel MEGAN+probe (Nose) Normal Negative [facility] Comment on above: Order Comment: Speci men Type: SWAB OF INTERNAL NOSEOrdering Facility: [facility] Address: [address] [place] [address] Result Comment: Nega tive for Staphylococcus aureus by PCR.Negative for MRSA by PCR Performed By: #### S APCR ####[facility] LABORATORYCLIA [id number] [place] [address] [place] Sodium SerPl-sCncon 06-16-19 22 Sodium [Moles/Vol] 150 mmol/L High 136-144 [facility] Comment on above: Order Comment: Speci men Type: BLOOD SPECIMENOrdering Facility: [facility] Address: [address] [place] [address] Performed By: #### 2 951-2 ####[facility] LABORATORYCLIA [id number] [place] [address] [place] Sodium [Moles/Vol] 153 mmol/L High 136-144 [facility] Comment on above: Order Comment: Speci men Type: BLOOD SPECIMENOrdering Facility: [facility] Address: [address] [place] [address] Performed By: #### 2 951-2 ####[facility] LABORATORYCLIA [id number] [place] [address] [place] Sodium [Moles/Vol] 158 mmol/L High 136-144 [facility] Comment on above: Order Comment: Speci men Type: BLOOD SPECIMENOrdering Facility: [facility] Address: [address] [place] [address] Performed By: #### 2 951-2 ####[facility] LABORATORYCLIA [id number] [address] aPTT PPPon 06-16-2021 aPTT Coag (PPP) [Time] 61.8 s High 23.0-32.4 [facility] Comment on above: Order Comment: Speci men Type: BLOOD SPECIMENOrdering Facility: [facility] Address: [address] [address] Performed By: #### 1 4979-9 ####[facility] LABORATORYCLIA [id number] [address] aPTT Coag (PPP) [Time] 57.6 s High 23.0-32.4 [facility] Comment on above: Order Comment: Speci men Type: BLOOD SPECIMENOrdering Facility: [facility] Address: [address] [place] [address] Performed By: #### 1 4979-9 ####[facility] LABORATORYCLIA [id number] [address] [place] ALLIED HEALTHon 06-15-2021 ALLIED HEALTH Normal [facility] ALLIED HEALTH Normal [facility] ALLIED HEALTH Normal [facility] ALLIED HEALTH Normal [facility] ARTERIAL BLOOD GASESon 06-15 Base excess Calc (Bld) [Moles/Vol] 3 mmol/L High 0-2 [facility] Comment on above: Order Comment: Speci men Type: ARTERIAL BLOOD SPECIMENOrdering Facility: [facility] Address: [address] Performed By: #### A LLBG ####[facility] LABORATORYCLIA [id number] [address] Body temperature 99.5 [degF] Normal [facility] Comment on above: Order Comment: Speci men Type: ARTERIAL BLOOD SPECIMENOrdering Facility: [facility] Address: [address] [place] [address] Performed By: #### A LLBG ####[facility] LABORATORYCLIA [id number] [address] [facility] CALCIUM IONIZED, PH CORRECTED 1.34 mmol/L High 1.08-1.30 [facility] Comment on above: Order Comment: Speci men Type: ARTERIAL BLOOD SPECIMENOrdering Facility: [facility] Address: [address] [place] [address] Performed By: #### A LLBG ####[facility] LABORATORYCLIA [id number] [address] Calcium.ionized (BldV) [Mass/Vol] 1.29 mmol/L Normal 1.08-1.30 [facility] Comment on above: Order Comment: Speci men Type: ARTERIAL BLOOD SPECIMENOrdering Facility: [facility] Address: [address] [place] [address] Performed By: #### A LLBG ####[facility] LABORATORYCLIA [id number] [address] Carboxyhemoglobin (BldA) [Mass fraction] 1.3 % Normal 0.0-2.0 [facility] Comment on above: Order Comment: Speci men Type: ARTERIAL BLOOD SPECIMENOrdering Facility: [facility] Address: [address] [place] [address] Result Comment: Carb oxyhemoglobin Reference Range for Smokers: 2.0-8.0% Performed By: #### A LLBG ####[facility] LABORATORYCLIA [id number] [address] [place] CO2 (Bld) [Partial pressure] 37 mm Hg Normal 36-46 [facility] Comment on above: Order Comment: Speci men Type: ARTERIAL BLOOD SPECIMENOrdering Facility: [facility] Address: [address] [place] [address] Performed By: #### A LLBG ####[facility] LABORATORYCLIA [id number] [address] [place] CO2 [Moles/Vol] 24.6 mmol/L Normal 22-28 [facility] Comment on above: Order Comment: Speci men Type: ARTERIAL BLOOD SPECIMENOrdering Facility: [facility] Address: [address] [place] [address] Performed By: #### A LLBG ####[facility]ORATORYCLIA [id number] [address] CO2 adjusted to patient's actual temperature (Bld) [Partial pressure] 38 mmHg Normal 36-46 [facility] Comment on above: Order Comment: Speci men Type: ARTERIAL BLOOD SPECIMENOrdering Facility: [facility] Address: [address] [place] [address] Performed By: #### A LLBG ####[facility] LABORATORYCLIA [id number] [address] FIO2 100 % Normal [facility] Comment on above: Order Comment: Speci men Type: ARTERIAL BLOOD SPECIMENOrdering Facility: [facility] Address: [address] [place] [address] Performed By: #### A LLBG ####[facility] LABORATORYCLIA [id number] [address] [place] Glucose [Mass/Vol] 159 mg/dL High 60-105 [facility] Comment on above: Order Comment: Speci men Type: ARTERIAL BLOOD SPECIMENOrdering Facility: [facility] Address: [address] [place] [address] Performed By: #### A LLBG ####[facility]ATORYCLIA [id number] [address] [place] HCO3 (Bld) [Moles/Vol] 27 mmol/L High 22-26 [facility] Comment on above: Order Comment: Speci men Type: ARTERIAL BLOOD SPECIMENOrdering Facility: [facility] Address: [address] [place] [address] Performed By: #### A LLBG ####[facility]ATORYCLIA [id number] [address] [place] Hematocrit (Bld) [Volume fraction] 31.0 % Low 39.0-51.0 [facility] Comment on above: Order Comment: Speci men Type: ARTERIAL BLOOD SPECIMENOrdering Facility: [facility] Address: [address] [place] [address] Performed By: #### A LLBG ####[facility] LABORATORYCLIA [id number] [address] [facility] Hemoglobin (Bld) [Mass/Vol] 10.0 g/dL Low 13.0-17.0 [facility] Comment on above: Order Comment: Speci men Type: ARTERIAL BLOOD SPECIMENOrdering Facility: [facility] Address: [address] [place] [address] Performed By: #### A LLBG ####[facility] LABORATORYCLIA [id number] [address] Methemoglobin (Bld) [Mass fraction] % Normal 0.0-1.5 [facility] Comment on above: Order Comment: Speci men Type: ARTERIAL BLOOD SPECIMENOrdering Facility: [facility] Address: [address] [place] [address] Performed By: #### A LLBG ####[facility] LABORATORYCLIA [id number] [address] O2 THERAPY Ventilator Normal [facility] Comment on above: Order Comment: Speci men Type: ARTERIAL BLOOD SPECIMENOrdering Facility: [facility] Address: [address] [place] [address] Performed By: #### A LLBG ####[facility] LABORATORYCLIA [id number] [address] Oxygen (Bld) [Partial pressure] 279 mm Hg High 85-95 [facility] Comment on above: Order Comment: Speci men Type: ARTERIAL BLOOD SPECIMENOrdering Facility: [facility] Address: [address] [place] [address] Performed By: #### A LLBG ####[facility] LABORATORYCLIA [id number] [address] Oxygen adjusted to patient's actual temperature (Bld) [Partial pressure] 281 mmHg High 85-95 [facility] Comment on above: Order Comment: Speci men Type: ARTERIAL BLOOD SPECIMENOrdering Facility: [facility] Address: [address] [place] [address] Performed By: #### A LLBG ####[facility] LABORATORYCLIA [id number] [address] [place] OXYGEN SATURATION, ARTERIAL 100 % High 95-98 [facility] Comment on above: Order Comment: Speci men Type: ARTERIAL BLOOD SPECIMENOrdering Facility: [facility] Address: [address] [place] [address] Performed By: #### A LLBG ####[facility] LABORATORYCLIA [id number] [address] [place] Oxyhemoglobin (BldA) [Mass fraction] 98 % Normal 95-98 [facility] Comment on above: Order Comment: Speci men Type: ARTERIAL BLOOD SPECIMENOrdering Facility: [facility] Address: [address] [place] [address] Performed By: #### A LLBG ####[facility] LABORATORYCLIA [id number] [place] [address] [place] pH (Bld) 7.47 [pH] High 7.35-7.45 [facility] Comment on above: Order Comment: Speci men Type: ARTERIAL BLOOD SPECIMENOrdering Facility: [facility] Address: [address] [place] [address] Performed By: #### A LLBG ####[facility]ORATORYCLIA [id number] [address] [place] pH adjusted to patient's actual temperature (Bld) 7.46 High 7.35-7.45 [facility] Comment on above: Order Comment: Speci men Type: ARTERIAL BLOOD SPECIMENOrdering Facility: [facility] Address: [address] [place] [address] Performed By: #### A LLBG ####[facility]ORATORYCLIA [id number] [address] [place] Potassium [Moles/Vol] 3.6 mmol/L Normal 3.5-5.0 [facility] Comment on above: Order Comment: Speci men Type: ARTERIAL BLOOD SPECIMENOrdering Facility: [facility] Address: [address] [place] [address] Performed By: #### A LLBG ####[facility] LABORATORYCLIA [id number] [place] [address] [place] Sodium [Moles/Vol] 162 mmol/L High 136-144 [facility] Comment on above: Order Comment: Speci men Type: ARTERIAL BLOOD SPECIMENOrdering Facility: [facility] Address: [address] [place] [address] Performed By: #### A LLBG ####[facility] LABORATORYCLIA [id number] [place] [address] [place] Base excess Calc (Bld) [Moles/Vol] 4 mmol/L High 0-2 [facility] Comment on above: Order Comment: Speci men Type: ARTERIAL BLOOD SPECIMENOrdering Facility: [facility] Address: [address] [place] [address] Performed By: #### A LLBG ####[facility] LABORATORYCLIA [id number] [address] [place] Body temperature 100.58 [degF] Normal [facility] Comment on above: Order Comment: Speci men Type: ARTERIAL BLOOD SPECIMENOrdering Facility: [facility] Address: [address] [place] [address] Performed By: #### A LLBG ####[facility] LABORATORYCLIA [id number] [address] [place] CALCIUM IONIZED, PH CORRECTED 1.34 mmol/L High 1.08-1.30 [facility] Comment on above: Order Comment: Speci men Type: ARTERIAL BLOOD SPECIMENOrdering Facility: [facility] Address: [address] [place] [address] Performed By: #### A LLBG ####[facility] LABORATORYCLIA [id number] [address] [place] Calcium.ionized (BldV) [Mass/Vol] 1.33 mmol/L High 1.08-1.30 [facility] Comment on above: Order Comment: Speci men Type: ARTERIAL BLOOD SPECIMENOrdering Facility: [facility] Address: [address] [place] [address] Performed By: #### A LLBG ####[facility] LABORATORYCLIA [id number] [address] [place] Carboxyhemoglobin (BldA) [Mass fraction] 1.5 % Normal 0.0-2.0 [facility] Comment on above: Order Comment: Speci men Type: ARTERIAL BLOOD SPECIMENOrdering Facility: [facility] Address: [address] [place] [address] Result Comment: Carb oxyhemoglobin Reference Range for Smokers: 2.0-8.0% Performed By: #### A LLBG ####[facility] LABORATORYCLIA [id number] [address] [place] CO2 (Bld) [Partial pressure] 46 mm Hg Normal 36-46 [facility] Comment on above: Order Comment: Speci men Type: ARTERIAL BLOOD SPECIMENOrdering Facility: [facility] Address: [address] [place] [address] Performed By: #### A LLBG ####[facility] LABORATORYCLIA [id number] [address] [place] CO2 [Moles/Vol] 26.4 mmol/L Normal 22-28 [facility] Comment on above: Order Comment: Speci men Type: ARTERIAL BLOOD SPECIMENOrdering Facility: [facility] Address: [address] [place] [address] Performed By: #### A LLBG ####[facility] LABORATORYCLIA [id number] [address] [place] CO2 adjusted to patient's actual temperature (Bld) [Partial pressure] 48 mmHg High 36-46 [facility] Comment on above: Order Comment: Speci men Type: ARTERIAL BLOOD SPECIMENOrdering Facility: [facility] Address: [address] [place] [address] Performed By: #### A LLBG ####[facility] LABORATORYCLIA [id number] [address] [place] FIO2 100 % Normal [facility] Comment on above: Order Comment: Speci men Type: ARTERIAL BLOOD SPECIMENOrdering Facility: [facility] Address: [address] [place] [address] Performed By: #### A LLBG ####[facility] LABORATORYCLIA [id number] [address] [place] Glucose [Mass/Vol] 132 mg/dL High 60-105 [facility] Comment on above: Order Comment: Speci men Type: ARTERIAL BLOOD SPECIMENOrdering Facility: [facility] Address: [address] [place] [address] Performed By: #### A LLBG ####[facility] LABORATORYCLIA [id number] [address] [place] HCO3 (Bld) [Moles/Vol] 29 mmol/L High 22-26 [facility] Comment on above: Order Comment: Speci men Type: ARTERIAL BLOOD SPECIMENOrdering Facility: [facility] Address: [address] [place] [address] Performed By: #### A LLBG ####[facility] LABORATORYCLIA [id number] [address] [place] Hematocrit (Bld) [Volume fraction] 32.3 % Low 39.0-51.0 [facility] Comment on above: Order Comment: Speci men Type: ARTERIAL BLOOD SPECIMENOrdering Facility: [facility] Address: [address] [place] [address] Performed By: #### A LLBG ####[facility] LABORATORYCLIA [id number] [address] [place] Hemoglobin (Bld) [Mass/Vol] 10.4 g/dL Low 13.0-17.0 [facility] Comment on above: Order Comment: Speci men Type: ARTERIAL BLOOD SPECIMENOrdering Facility: [facility] Address: [address] [place] [address] Performed By: #### A LLBG ####[facility]ORATORYCLIA [id number] [address] [place] Methemoglobin (Bld) [Mass fraction] % Normal 0.0-1.5 [facility] Comment on above: Order Comment: Speci men Type: ARTERIAL BLOOD SPECIMENOrdering Facility: [facility] Address: [address] [place] [address] Performed By: #### A LLBG ####[facility] LABORATORYCLIA [id number] [address] O2 THERAPY NR=Non-Rebreather Mask Normal [facility] Comment on above: Order Comment: Speci men Type: ARTERIAL BLOOD SPECIMENOrdering Facility: [facility] Address: [address] Performed By: #### A LLBG ####[facility] LABORATORYCLIA [id number] [address] [place] Oxygen (Bld) [Partial pressure] 130 mm Hg High 85-95 [facility] Comment on above: Order Comment: Speci men Type: ARTERIAL BLOOD SPECIMENOrdering Facility: [facility] Address: [address] Performed By: #### A LLBG ####[facility]ATORYCLIA [id number] [address] Oxygen adjusted to patient's actual temperature (Bld) [Partial pressure] 136 mmHg High 85-95 [facility] Comment on above: Order Comment: Speci men Type: ARTERIAL BLOOD SPECIMENOrdering Facility: [facility] Address: [address] Performed By: #### A LLBG ####[facility]ATORYCLIA [id number] [address] OXYGEN SATURATION, ARTERIAL 99 % High 95-98 [facility] Comment on above: Order Comment: Speci men Type: ARTERIAL BLOOD SPECIMENOrdering Facility: [facility] Address: [address] [place] [address] Performed By: #### A LLBG ####[facility] LABORATORYCLIA [id number] [address] [place] Oxyhemoglobin (BldA) [Mass fraction] 97 % Normal 95-98 [facility] Comment on above: Order Comment: Speci men Type: ARTERIAL BLOOD SPECIMENOrdering Facility: [facility] Address: [address] [place] [address] Performed By: #### A LLBG ####[facility] LABORATORYCLIA [id number] [address] [place] pH (Bld) 7.41 [pH] Normal 7.35-7.45 [facility] Comment on above: Order Comment: Speci men Type: ARTERIAL BLOOD SPECIMENOrdering Facility: [facility] Address: [address] [place] [address] Performed By: #### A LLBG ####[facility] LABORATORYCLIA [id number] [address] pH adjusted to patient's actual temperature (Bld) 7.40 Normal 7.35-7.45 [facility] Comment on above: Order Comment: Speci men Type: ARTERIAL BLOOD SPECIMENOrdering Facility: [facility] Address: [address] [place] [address] Performed By: #### A LLBG ####[facility] LABORATORYCLIA [id number] [address] [place] Potassium [Moles/Vol] 3.8 mmol/L Normal 3.5-5.0 [facility] Comment on above: Order Comment: Speci men Type: ARTERIAL BLOOD SPECIMENOrdering Facility: [facility] Address: [address] [place] [address] Performed By: #### A LLBG ####[facility] LABORATORYCLIA [id number] [place] [address] [place] Sodium [Moles/Vol] 166 mmol/L High 136-144 [facility] Comment on above: Order Comment: Speci men Type: ARTERIAL BLOOD SPECIMENOrdering Facility: [facility] Address: [address] [place] [address] [place] [id number] Performed By: #### A LLBG ####[facility] LABORATORYCLIA [id number] [address] [place] Bacteria Bld Culton 06-15-19 22 Bacteria identified Cx Nom (Bld) CULTURE, BLOOD: No growth 5 days Normal [facility] Comment on above: Performed By: #### 6 00-7 ####[facility] LABORATORYCLIA [id number] [address] [place] Basic metabolic 2000 panelon 06-15-2021 Anion gap [Moles/Vol] 9 mmol/L Normal 9-18 [facility] Comment on above: Order Comment: Speci men Type: BLOOD SPECIMEN Performed By: #### 2 4321-2, 2776-05, ####[facility] LABORATORYCLIA [id number] [place] [address] [place] Calcium [Mass/Vol] 9.0 mg/dL Normal 8.5-10.2 [facility] Comment on above: Order Comment: Speci men Type: BLOOD SPECIMEN Performed By: #### 2 4321-2, 2776-05, ####[facility] LABORATORYCLIA [id number] [place] [address] [place] Chloride [Moles/Vol] 125 mmol/L High 97-105 [facility] Comment on above: Order Comment: Speci men Type: BLOOD SPECIMEN Performed By: #### 2 4321-2, 2776-05, ####[facility] LABORATORYCLIA [id number] [place] [address] [place] CO2 [Moles/Vol] 29 mmol/L Normal 22-30 [facility] Comment on above: Order Comment: Speci men Type: BLOOD SPECIMEN Performed By: #### 2 4321-2, 2776-05, ####[facility] LABORATORYCLIA [id number] [place] [address] [place] Creatinine [Mass/Vol] 0.81 mg/dL Normal 0.73-1.22 [facility] Comment on above: Order Comment: Speci men Type: BLOOD SPECIMEN Performed By: #### 2 4321-2, 2776-05, ####[facility] LABORATORYCLIA [id number] [place] [address] [place] GFR/1.73 sq M.predicted MDRD (S/P/Bld) [Vol rate/Area] mL/min/{1.73_m2} Normal [facility] Comment on above: Order Comment: Speci [...] GFR. Performed By: #### 2 4321-2, 2776-05, ####[facility] LABORATORYCLIA [id number] [place] [address] [place] Glucose [Mass/Vol] 124 mg/dL High 74-99 [facility] Comment on above: Order Comment: Speci men Type: BLOOD SPECIMEN Result Comment: The [place] Diabetes Association (ADA) provides guidance for cutoff [...] Standards of Medical Care in Diabetes 2016, [place] Diabetes Association. Diabetes Care. 2016.39(Suppl 1). Performed By: #### 2 4321-2, 2776-05, ####[facility] LABORATORYCLIA [id number] [address] [facility] Potassium [Moles/Vol] 3.8 mmol/L Normal 3.7-5.1 [facility] Comment on above: Order Comment: Speci men Type: BLOOD SPECIMEN Performed By: #### 2 4321-2, 2776-05, ####[facility] LABORATORYCLIA [id number] [address] Sodium [Moles/Vol] 163 mmol/L High 136-144 [facility] Comment on above: Order Comment: Speci men Type: BLOOD SPECIMEN Performed By: #### 2 4321-2, 2776-05, ####[facility] LABORATORYCLIA [id number] [address] Urea nitrogen [Mass/Vol] 35 mg/dL High 9-24 [facility] Comment on above: Order Comment: Speci men Type: BLOOD SPECIMEN Performed By: #### 2 4321-2, 2776-05, ####[facility] LABORATORYCLIA [id number] [address] [place] CBC panel Auto (Bld)on 06-15 Erythrocyte distribution width (RBC) [Ratio] 16.3 % High 11.5-15.0 [facility] Comment on above: Order Comment: Speci men Type: BLOOD SPECIMENOrdering Facility: [facility] Address: [address] [place] [phone] Performed By: #### 5 8410-2 ####[facility] LABORATORYCLIA [id number] [address] Hematocrit (Bld) [Volume fraction] 30.0 % Low 39.0-51.0 [facility] Comment on above: Order Comment: Speci men Type: BLOOD SPECIMENOrdering Facility: [facility] Address: [address] [place] [address] Performed By: #### 5 8410-2 ####[facility] LABORATORYCLIA [id number] [address] Hemoglobin (Bld) [Mass/Vol] 8.9 g/dL Low 13.0-17.0 [facility] Comment on above: Order Comment: Speci men Type: BLOOD SPECIMENOrdering Facility: [facility] Address: [address] [place] [address] Performed By: #### 5 8410-2 ####[facility] LABORATORYCLIA [id number] [address] MCH (RBC) [Entitic mass] 28.7 pg Normal 26.0-34.0 [facility] Comment on above: Order Comment: Speci men Type: BLOOD SPECIMENOrdering Facility: [facility] Address: [address] [place] [address] Performed By: #### 5 8410-2 ####[facility] LABORATORYCLIA [id number] [address] [facility] MCHC (RBC) [Mass/Vol] 29.7 g/dL Low 30.5-36.0 [facility] Comment on above: Order Comment: Speci men Type: BLOOD SPECIMENOrdering Facility: [facility] Address: [address] [place] [address] Performed By: #### 5 8410-2 ####[facility] LABORATORYCLIA [id number] [address] MCV (RBC) [Entitic vol] 96.8 fL Normal 80.0-100.0 [facility] Comment on above: Order Comment: Speci men Type: BLOOD SPECIMENOrdering Facility: [facility] Address: [address] Performed By: #### 5 8410-2 ####[facility] LABORATORYCLIA [id number] [address] Nucleated RBC (Bld) [#/Vol] 10*3/uL Normal <0.01 [facility] Comment on above: Order Comment: Speci men Type: BLOOD SPECIMENOrdering Facility: [facility] Address: [address] [address] Performed By: #### 5 8410-2 ####[facility] LABORATORYCLIA [id number] [address] [place] Platelet mean volume (Bld) [Entitic vol] 12.3 fL Normal 9.0-12.7 [facility] Comment on above: Order Comment: Speci men Type: BLOOD SPECIMENOrdering Facility: [facility] Address: [address] [place] [address] Performed By: #### 5 8410-2 ####[facility] LABORATORYCLIA [id number] [address] [place] Platelets (Bld) [#/Vol] 226 10*3/uL Normal 150-400 [facility] Comment on above: Order Comment: Speci men Type: BLOOD SPECIMENOrdering Facility: [facility] Address: [address] [address] Performed By: #### 5 8410-2 ####[facility] LABORATORYCLIA [id number] [address] [place] RBC (Bld) [#/Vol] 3.10 10*6/uL Low 4.20-6.00 [facility] Comment on above: Order Comment: Speci men Type: BLOOD SPECIMENOrdering Facility: [facility] [facility] Address: [address] [place] [address] Performed By: #### 5 8410-2 ####[facility] LABORATORYCLIA [id number] [place] [address] WBC (Bld) [#/Vol] 10.77 10*3/uL Normal 3.70-11.00 [facility] Comment on above: Order Comment: Speci men Type: BLOOD SPECIMENOrdering Facility: [facility] Address: [address] [place] [address] Performed By: #### 5 8410-2 ####[facility] LABORATORYCLIA [id number] [address] Erythrocyte distribution width (RBC) [Ratio] 16.2 % High 11.5-15.0 [facility] Comment on above: Order Comment: Speci men Type: BLOOD SPECIMENOrdering Facility: [facility] Address: [address] [place] [address] Performed By: #### 5 8410-2 ####[facility] LABORATORYCLIA [id number] [address] Hematocrit (Bld) [Volume fraction] 34.8 % Low 39.0-51.0 [facility] Comment on above: Order Comment: Speci men Type: BLOOD SPECIMENOrdering Facility: [facility] Address: [address] [place] [address] Performed By: #### 5 8410-2 ####[facility] LABORATORYCLIA [id number] [address] Hemoglobin (Bld) [Mass/Vol] 10.0 g/dL Low 13.0-17.0 [facility] Comment on above: Order Comment: Speci men Type: BLOOD SPECIMENOrdering Facility: [facility] Address: [address] [place] [address] Performed By: #### 5 8410-2 ####[facility] LABORATORYCLIA [id number] [address] MCH (RBC) [Entitic mass] 27.5 pg Normal 26.0-34.0 [facility] Comment on above: Order Comment: Speci men Type: BLOOD SPECIMENOrdering Facility: [facility] Address: [address] [place] [address] Performed By: #### 5 8410-2 ####[facility] LABORATORYCLIA [id number] [address] MCHC (RBC) [Mass/Vol] 28.7 g/dL Low 30.5-36.0 [facility] Comment on above: Order Comment: Speci men Type: BLOOD SPECIMENOrdering Facility: [facility] Address: [address] [place] [address] Performed By: #### 5 8410-2 ####[facility] LABORATORYCLIA [id number] [address] [place] MCV (RBC) [Entitic vol] 95.6 fL Normal 80.0-100.0 [facility] Comment on above: Order Comment: Speci men Type: BLOOD SPECIMENOrdering Facility: [facility] Address: [address] [place] [address] Performed By: #### 5 8410-2 ####[facility] LABORATORYCLIA [id number] [address] [facility] Nucleated RBC (Bld) [#/Vol] 10*3/uL Normal <0.01 [facility] Comment on above: Order Comment: Speci men Type: BLOOD SPECIMENOrdering Facility: [facility] Address: [address] [place] [address] Performed By: #### 5 8410-2 ####[facility] LABORATORYCLIA [id number] [address] Platelet mean volume (Bld) [Entitic vol] 11.9 fL Normal 9.0-12.7 [facility] Comment on above: Order Comment: Speci men Type: BLOOD SPECIMENOrdering Facility: [facility] Address: [address] [place] [address] Performed By: #### 5 8410-2 ####[facility] LABORATORYCLIA [id number] [address] [place] Platelets (Bld) [#/Vol] 246 10*3/uL Normal 150-400 [facility] Comment on above: Order Comment: Speci men Type: BLOOD SPECIMENOrdering Facility: [facility] Address: [address] [place] [address] Performed By: #### 5 8410-2 ####[facility] LABORATORYCLIA [id number] [address] OF [facility] RBC (Bld) [#/Vol] 3.64 10*6/uL Low 4.20-6.00 [facility] Comment on above: Order Comment: Speci men Type: BLOOD SPECIMENOrdering Facility: [facility] Address: [address] [place] [address] Performed By: #### 5 8410-2 ####[facility] LABORATORYCLIA [id number] [address] WBC (Bld) [#/Vol] 11.45 10*3/uL High 3.70-11.00 [facility] Comment on above: Order Comment: Speci men Type: BLOOD SPECIMENOrdering Facility: [facility] Address: [address] [place] [address] Performed By: #### 5 8410-2 ####[facility] LABORATORYCLIA [id number] [address] Erythrocyte distribution width (RBC) [Ratio] 15.9 % High 11.5-15.0 [facility] Comment on above: Order Comment: Speci men Type: BLOOD SPECIMEN Performed By: #### 5 8410-2 ####[facility] LABORATORYCLIA [id number] [address] Hematocrit (Bld) [Volume fraction] 35.8 % Low 39.0-51.0 [facility] Comment on above: Order Comment: Speci men Type: BLOOD SPECIMEN Performed By: #### 5 8410-2 ####[facility] LABORATORYCLIA [id number] [address] Hemoglobin (Bld) [Mass/Vol] 10.4 g/dL Low 13.0-17.0 [facility] Comment on above: Order Comment: Speci men Type: BLOOD SPECIMEN Performed By: #### 5 8410-2 ####[facility] LABORATORYCLIA [id number] [address] MCH (RBC) [Entitic mass] 28.0 pg Normal 26.0-34.0 [facility] Comment on above: Order Comment: Speci men Type: BLOOD SPECIMEN Performed By: #### 5 8410-2 ####[facility] LABORATORYCLIA [id number] [address] MCHC (RBC) [Mass/Vol] 29.1 g/dL Low 30.5-36.0 [facility] Comment on above: Order Comment: Speci men Type: BLOOD SPECIMEN Performed By: #### 5 8410-2 ####[facility] LABORATORYCLIA [id number] [address] MCV (RBC) [Entitic vol] 96.2 fL Normal 80.0-100.0 [facility] Comment on above: Order Comment: Speci men Type: BLOOD SPECIMEN Performed By: #### 5 8410-2 ####[facility] LABORATORYCLIA [id number] [address] Nucleated RBC (Bld) [#/Vol] 10*3/uL Normal <0.01 [facility] Comment on above: Order Comment: Speci men Type: BLOOD SPECIMEN Performed By: #### 5 8410-2 ####[facility] LABORATORYCLIA [id number] [address] Platelet mean volume (Bld) [Entitic vol] 11.6 fL Normal 9.0-12.7 [facility] Comment on above: Order Comment: Speci men Type: BLOOD SPECIMEN Performed By: #### 5 8410-2 ####[facility] LABORATORYCLIA [id number] [address] Platelets (Bld) [#/Vol] 265 10*3/uL Normal 150-400 [facility] Comment on above: Order Comment: Speci men Type: BLOOD SPECIMEN Performed By: #### 5 8410-2 ####[facility] LABORATORYCLIA [id number] [address] RBC (Bld) [#/Vol] 3.72 10*6/uL Low 4.20-6.00 [facility] Comment on above: Order Comment: Speci men Type: BLOOD SPECIMEN Performed By: #### 5 8410-2 ####[facility] LABORATORYCLIA [id number] [address] WBC (Bld) [#/Vol] 12.24 10*3/uL High 3.70-11.00 [facility] Comment on above: Order Comment: Speci men Type: BLOOD SPECIMEN Performed By: #### 5 8410-2 ####[facility] LABORATORYCLIA [id number] [address] CONSULTon 06-15-2021 CONSULT Normal [facility] CONSULT Normal [facility] CONSULT Normal [facility] CT BRAIN WO IVCONon 06-15-19 CT BRAIN WO IVCON Normal [facility] CT CHEST W IVCON PEon 2021 CT CHEST W IVCON PE Invalid Interpretation Code [facility] Chloride Unsp time (U) [Mole s/Vol]on 06-15-2021 Chloride (U) [Moles/Vol] 28 mmol/L Normal 16-250 [facility] Comment on above: Order Comment: Speci men Type: URINE SPECIMENOrdering Facility: [facility] Address: [address] [place] [id number] Performed By: #### U TPR, 61169-8, 54265-6, 77022-9 ####[facility] LABORATORYCLIA [id number] [address] Comprehensive metabolic 2000 panelon 06-15-2021 Albumin [Mass/Vol] 2.8 g/dL Low 3.9-4.9 [facility] Comment on above: Order Comment: Speci men Type: BLOOD SPECIMENOrdering Facility: [facility] Address: [address] [place] [address] Performed By: #### 2 4323-8 ####[facility] LABORATORYCLIA [id number] [address] [place] [facility] ALP [Catalytic activity/Vol] 74 U/L Normal 38-113 [facility] Comment on above: Order Comment: Speci men Type: BLOOD SPECIMENOrdering Facility: [facility] Address: [address] [place] [address] Performed By: #### 2 4323-8 ####[facility] LABORATORYCLIA [id number] [address] [place] [facility] ALT With P-5'-P [Catalytic activity/Vol] 50 U/L Normal 10-54 [facility] Comment on above: Order Comment: Speci men Type: BLOOD SPECIMENOrdering Facility: [facility] Address: [address] [place] [address] Performed By: #### 2 4323-8 ####[facility] LABORATORYCLIA [id number] [address] Anion gap [Moles/Vol] 12 mmol/L Normal 9-18 [facility] Comment on above: Order Comment: Speci men Type: BLOOD SPECIMENOrdering Facility: [facility] Address: [address] [place] [address] Performed By: #### 2 4323-8 ####[facility] LABORATORYCLIA [id number] [address] [place] AST With P-5'-P [Catalytic activity/Vol] 36 U/L Normal 14-40 [facility] Comment on above: Order Comment: Speci men Type: BLOOD SPECIMENOrdering Facility: [facility] Address: [address] [place] [address] Performed By: #### 2 4323-8 ####[facility] LABORATORYCLIA [id number] [address] [place] Bilirubin [Mass/Vol] 0.5 mg/dL Normal 0.2-1.3 [facility] Comment on above: Order Comment: Speci men Type: BLOOD SPECIMENOrdering Facility: [facility] Address: [address] [place] [address] Performed By: #### 2 4323-8 ####[facility] LABORATORYCLIA [id number] [place] [address] [place] Calcium [Mass/Vol] 8.8 mg/dL Normal 8.5-10.2 [facility] Comment on above: Order Comment: Speci men Type: BLOOD SPECIMENOrdering Facility: [facility] Address: [address] [place] [address] Performed By: #### 2 4323-8 ####[facility] LABORATORYCLIA [id number] [place] [address] [place] Chloride [Moles/Vol] 126 mmol/L High 97-105 [facility] Comment on above: Order Comment: Speci men Type: BLOOD SPECIMENOrdering Facility: [facility] Address: [address] [place] [address] Performed By: #### 2 4323-8 ####[facility] LABORATORYCLIA [id number] [place] [address] [place] CO2 [Moles/Vol] 24 mmol/L Normal 22-30 [facility] Comment on above: Order Comment: Speci men Type: BLOOD SPECIMENOrdering Facility: [facility] Address: [address] [place] [address] Performed By: #### 2 4323-8 ####[facility] LABORATORYCLIA [id number] [place] [address] [place] Creatinine [Mass/Vol] 0.84 mg/dL Normal 0.73-1.22 [facility] Comment on above: Order Comment: Speci men Type: BLOOD SPECIMENOrdering Facility: [facility] Address: [address] [place] [address] Performed By: #### 2 4323-8 ####[facility] LABORATORYCLIA [id number] [place] [address] [place] GFR/1.73 sq M.predicted MDRD (S/P/Bld) [Vol rate/Area] mL/min/{1.73_m2} Normal [facility] Comment on above: Order Comment: Johncara feldman Type: BLOOD SPECIMENOrdering Facility: [facility] Address: [address] [place] [address] Result Comment: >60e GFR (Estimated GFR) Units [...] actual GFR. Performed By: #### 2 4323-8 ####[facility] LABORATORYCLIA [id number] [place] [address] [place] Glucose [Mass/Vol] 142 mg/dL High 74-99 [facility] Comment on above: Order Comment: Johncara feldman Type: BLOOD SPECIMENOrdering Facility: [facility] Address: [address] [place] [address] Result Comment: The [place] Diabetes Association (ADA) provides guidance for cutoff [...] Standards of Medical Care in Diabetes 2016, [place] Diabetes Association. Diabetes Care. 2016.39(Suppl 1). Performed By: #### 2 4323-8 ####[facility]ORATORYCLIA [id number] [place] [address] [place] Potassium [Moles/Vol] 3.8 mmol/L Normal 3.7-5.1 [facility] Comment on above: Order Comment: Speci men Type: BLOOD SPECIMENOrdering Facility: [facility] Address: [address] [place] [address] Performed By: #### 2 4323-8 ####[facility] LABORATORYCLIA [id number] [address] [place] Protein [Mass/Vol] 6.1 g/dL Low 6.3-8.0 [facility] Comment on above: Order Comment: Speci men Type: BLOOD SPECIMENOrdering Facility: [facility] Address: [address] [place] [address] Performed By: #### 2 4323-8 ####[facility] LABORATORYCLIA [id number] [address] [place] Sodium [Moles/Vol] 162 mmol/L High 136-144 [facility] Comment on above: Order Comment: Speci men Type: BLOOD SPECIMENOrdering Facility: [facility] Address: [address] [place] [address] Performed By: #### 2 4323-8 ####[facility] LABORATORYCLIA [id number] [address] [place] Urea nitrogen [Mass/Vol] 33 mg/dL High 9-24 [facility] Comment on above: Order Comment: Speci men Type: BLOOD SPECIMENOrdering Facility: [facility] Address: [address] [place] [address] Performed By: #### 2 4323-8 ####[facility] LABORATORYCLIA [id number] [address] [place] Creatinine Unsp time (U) [Ma ss/Vol]on 06-15-2021 Creatinine (U) [Mass/Vol] 87.0 mg/dL Normal 46.8-314.5 [facility] Comment on above: Order Comment: Speci men Type: URINE SPECIMENOrdering Facility: [facility] Address: [address] [place] [address] Performed By: #### U TPR, 86738-5, 75843-6, 35741-2 ####[facility] LABORATORYCLIA [id number] [place] [address] [place] HIGH SENSITIVITY TROPONIN To n 06-15-2021 HIGH SENSITIVITY TAMIKO 23 ng/L High <12 [facility] Comment on above: Order Comment: Speci men Type: BLOOD SPECIMENOrdering Facility: [facility] Address: [address] [place] [address] Result Comment: When assessing risk for acute [...] day MACE. Performed By: #### P ROCAL, 51162-2, HSTNT ####[facility] LABORATORYCLIA [id number] [place] [address] [place] Lactate (Bld) [Moles/Vol]on 06-15-2021 Lactate [Moles/Vol] 0.8 mmol/L Normal 0.5-2.2 [facility] Comment on above: Order Comment: Speci men Type: BLOOD SPECIMENOrdering Facility: [facility] Address: [address] [place] [address] Performed By: #### 3 2693-4 ####[facility] LABORATORYCLIA [id number] [place] [address] [place] Magnesium SerPl-mCncon 06-15 Magnesium [Mass/Vol] 3.0 mg/dL High 1.7-2.3 [facility] Comment on above: Order Comment: Speci men Type: BLOOD SPECIMEN Performed By: #### 2 4321-2, 2777-1, 29940-1 ####[facility] LABORATORYCLIA [id number] [address] [place] NT-proBNP [facility] Natriuretic peptide.B prohormone N-Terminal [Mass/Vol] 265 pg/mL High <125 [facility] Comment on above: Order Comment: Speci men Type: BLOOD SPECIMENOrdering Facility: [facility] Address: [address] [place] [address] Performed By: #### P JULIANNE, 55136-5, HSTNT ####[facility] CARMELCLIA [id number] [address] [place] Osmolality Uron 06-15-2021 Osmolality (U) [Osmolality] 606 mosm/kg Normal 50-1,200 [facility] Comment on above: Order Comment: Speci men Type: URINE SPECIMENOrdering Facility: [facility] Address: [address] [place] [address] Performed By: #### 2 695-5 ####[facility]PITALIA [id number] [address] PROCALCITONIN (LAB)on 2021 Procalcitonin [Mass/Vol] 0.21 ng/mL High <0.09 [facility] Comment on above: Order Comment: Speci men Type: BLOOD SPECIMENOrdering Facility: [facility] Address: [address] [place] [address] Result Comment: For a guided interpretation of test results, please visit the Change in Procalcitonin Calculator, [email or web address]. Performed By: #### P JULIANNE, 2951-2 ####[facility] LABORATORYCLIA [id number] [address] Procalcitonin [Mass/Vol] 0.17 ng/mL High <0.09 [facility] Comment on above: Order Comment: Speci men Type: BLOOD SPECIMENOrdering Facility: [facility] Address: [address] [place] [address] Result Comment: For a guided interpretation of test results, please visit the Change in Procalcitonin Calculator, [email or web address]. Performed By: #### P ROCAL, 49391-0, HSTNT ####[facility] LABORATORYCLIA [id number] [address] PROTEIN RANDOM URon 06-15-19 22 Protein (U) [Mass/Vol] 175 mg/dL High 0-20 [facility] Comment on above: Order Comment: Speci men Type: URINE SPECIMENOrdering Facility: [facility] Address: [address] [place] [address] Performed By: #### U TPR, 27488-9, 64121-6, 18238-4 ####[facility] LABORATORYCLIA [id number] [address] PT panel Coag (PPP)on 2021 INR Coag (PPP) [Relative time] 1.1 {INR} Normal <1.4 [facility] Comment on above: Order Comment: Speci men Type: BLOOD SPECIMENOrdering Facility: [facility] Address: [address] [place] [address] Result Comment: Yris min K Antagonist (VKA) Therapeutic Range: INR 2 to 3 (Target INR of 2.5)Note: For patients treated with VKA drugs, such as warfarin, the [place] [employer]icians 2012 Guideline recommends [...] of 3).Jeffy GH, et al. Chest 2012, 141:7S-47SNishimpatricia RA, et al. JACC 2017, 70: 252-289 Performed By: #### 3 4528-0, 56762-3 ####[facility] LABORATORYCLIA [id number] [address] [place] PT Coag (PPP) [Time] 11.4 s Normal <13.1 [facility] Comment on above: Order Comment: Speci men Type: BLOOD SPECIMENOrdering Facility: [facility] Address: [address] [place] [address] Performed By: #### 3 4528-0, 14079-1 ####[facility] LABORATORYCLIA [id number] [address] [place] Phosphate SerPl-mCncon 06-15 Phosphate [Mass/Vol] 2.6 mg/dL Low 2.7-4.8 [facility] Comment on above: Order Comment: Speci men Type: BLOOD SPECIMEN Performed By: #### 2 4321-2, 2777-1, 14564-1 ####[facility] LABORATORYCLIA [id number] [place] [address] [place] Sodium ?Tm Ur-sCncon 022 Sodium Unsp time (U) [Moles/Vol] 34 mmol/L Normal 14-216 [facility] Comment on above: Order Comment: Speci men Type: URINE SPECIMENOrdering Facility: [facility] Address: [address] [place] [address] Performed By: #### U TPR, 20179-7, 44975-3, 79845-5 ####[facility] LABORATORYCLIA [id number] [place] [address] [place] Sodium SerPl-sCncon 06-15-19 22 Sodium [Moles/Vol] 159 mmol/L High 136-144 [facility] Comment on above: Order Comment: Speci men Type: BLOOD SPECIMENOrdering Facility: [facility] Address: [address] [place] [address] Performed By: #### P SHANTELLAL, 2951-2 ####[facility] LABORATORYCLIA [id number] [address] THERAPY NTon 06-15-2021 THERAPY NT Normal [facility] Urinalysis complete panel (U )on 06-15-2021 Bacteria LM.HPF (Urine sed) [#/Area] None Seen Normal None Seen [facility] Comment on above: Order Comment: Speci men Type: URINE SPECIMENOrdering Facility: [facility] Address: [address] [place] [address] Performed By: #### 2 4356-8 ####[facility] LABORATORYCLIA [id number] [address] Bilirubin Ql (U) Negative Normal Negative [facility] Comment on above: Order Comment: Speci men Type: URINE SPECIMENOrdering Facility: [facility] Address: [address] [place] [address] Performed By: #### 2 4356-8 ####[facility] LABORATORYCLIA [id number] [address] Clarity (Unsp spec) Cloudy Abnormal Clear [facility] Comment on above: Order Comment: Speci men Type: URINE SPECIMENOrdering Facility: [facility] Address: [address] [place] [address] Performed By: #### 2 4356-8 ####[facility] LABORATORYCLIA [id number] [address] Color (U) Yellow Normal Yellow [facility] Comment on above: Order Comment: Speci men Type: URINE SPECIMENOrdering Facility: [facility] Address: [address] [place] [address] Performed By: #### 2 4356-8 ####[facility] LABORATORYCLIA [id number] [address] Epithelial cells LM.HPF (Urine sed) [#/Area] 7.1 /[HPF] Normal [facility] Comment on above: Order Comment: Speci men Type: URINE SPECIMENOrdering Facility: [facility] Address: [address] [place] [address] Performed By: #### 2 4356-8 ####[facility] LABORATORYCLIA [id number] [address] Glucose Test strip (U) [Mass/Vol] Negative Normal Negative [facility] Comment on above: Order Comment: Speci men Type: URINE SPECIMENOrdering Facility: [facility] Address: [address] [place] [address] Performed By: #### 2 4356-8 ####[facility] LABORATORYCLIA [id number] [address] [place] Granular casts (Urine sed) [#/Area] /[LPF] Abnormal 0 /LPF [facility] Comment on above: Order Comment: Speci men Type: URINE SPECIMENOrdering Facility: [facility] Address: [address] [place] [address] Performed By: #### 2 4356-8 ####[facility] LABORATORYCLIA [id number] 46 [address] [place] [facility] Hemoglobin Ql (U) Moderate Abnormal Negative [facility] Comment on above: Order Comment: Speci men Type: URINE SPECIMENOrdering Facility: [facility] Address: [address] [place] [address] Performed By: #### 2 4356-8 ####[facility] LABORATORYCLIA [id number] [address] [place] Hyaline casts (Urine sed) [#/Area] /[LPF] Abnormal 0 /LPF [facility] Comment on above: Order Comment: Speci men Type: URINE SPECIMENOrdering Facility: [facility] Address: [address] [place] [address] Performed By: #### 2 4356-8 ####[facility] LABORATORYCLIA [id number] [address] Ketones Ql (U) Negative Normal Negative [facility] Comment on above: Order Comment: Speci men Type: URINE SPECIMENOrdering Facility: [facility] Address: [address] [address] Performed By: #### 2 4356-8 ####[facility] LABORATORYCLIA [id number] [address] Leukocyte esterase Test strip Ql (U) Negative Normal Negative [facility] Comment on above: Order Comment: Speci men Type: URINE SPECIMENOrdering Facility: [facility] Address: [address] [place] [address] Performed By: #### 2 4356-8 ####[facility] LABORATORYCLIA [id number] [address] Nitrite Ql (U) Negative Normal Negative [facility] Comment on above: Order Comment: Speci men Type: URINE SPECIMENOrdering Facility: [facility] Address: [address] [place] [address] Performed By: #### 2 4356-8 ####[facility] LABORATORYCLIA [id number] [address] pH (U) 6.0 [pH] Normal 5.0-8.0 [facility] Comment on above: Order Comment: Speci men Type: URINE SPECIMENOrdering Facility: [facility] Address: [address] [place] [address] Performed By: #### 2 4356-8 ####[facility] LABORATORYCLIA [id number] [address] Protein (U) [Mass/Vol] 100 mg/dL Abnormal Negative [facility] Comment on above: Order Comment: Speci men Type: URINE SPECIMENOrdering Facility: [facility] Address: [address] [address] Performed By: #### 2 4356-8 ####[facility] LABORATORYCLIA [id number] [address] RBC LM.HPF (Urine sed) [#/Area] 0-3 /HPF Normal 0-3 /HPF [facility] Comment on above: Order Comment: Speci men Type: URINE SPECIMENOrdering Facility: [facility] Address: [address] [place] [address] Performed By: #### 2 4356-8 ####[facility] LABORATORYCLIA [id number] [address] Specific gravity (U) [Rel density] 1.024 Normal 1.005-1.030 [facility] Comment on above: Order Comment: Speci men Type: URINE SPECIMENOrdering Facility: [facility] Address: [address] [place] [address] Performed By: #### 2 4356-8 ####[facility] LABORATORYCLIA [id number] [address] Urobilinogen Ql (U) 0.2 EU/dL Normal 0.2-1.0 EU/dL [facility] Comment on above: Order Comment: Speci men Type: URINE SPECIMENOrdering Facility: [facility] Address: [address] [place] [address] Performed By: #### 2 4356-8 ####[facility] LABORATORYCLIA [id number] [address] WBC LM.HPF (Urine sed) [#/Area] 0-5 /HPF Normal 0-5 /HPF [facility] Comment on above: Order Comment: Speci men Type: URINE SPECIMENOrdering Facility: [facility] Address: [address] [place] [address] Performed By: #### 2 4356-8 ####[facility] LABORATORYCLIA [id number] [address] [place] XR CHEST 1V FRONTALon 2021 XR CHEST 1V FRONTAL Normal [facility] XR CHEST 1V FRONTAL PORTon 0 06-15-2021 XR CHEST 1V FRONTAL PORT Normal [facility] XR CHEST 1V FRONTAL PORT Normal [facility] aPTT PPPon 06-15-2021 aPTT Coag (PPP) [Time] 30.9 s Normal 23.0-32.4 [facility] Comment on above: Order Comment: Speci men Type: BLOOD SPECIMENOrdering Facility: [facility] Address: [facility] [place] [address] Performed By: #### 3 4528-0, 85634-6 ####[facility]ORATORYCLIA [id number] [place] [address] [place] Basic metabolic 2000 panelon 06-14-2021 Anion gap [Moles/Vol] 8 mmol/L Low 9-18 [facility] Comment on above: Order Comment: Speci men Type: BLOOD SPECIMEN Performed By: #### 2 4321-2, 2776-, ####[facility]ATORYCLIA [id number] [place] [address] [place] Calcium [Mass/Vol] 8.9 mg/dL Normal 8.5-10.2 [facility] Comment on above: Order Comment: Speci men Type: BLOOD SPECIMEN Performed By: #### 2 4321-2, 2776-05, ####[facility]ATORYCLIA [id number] [place] [address] [place] Chloride [Moles/Vol] 121 mmol/L High 97-105 [facility] Comment on above: Order Comment: Speci men Type: BLOOD SPECIMEN Performed By: #### 2 4321-2, 2776-, ####[facility]ATORYCLIA [id number] [place] [address] [place] CO2 [Moles/Vol] 30 mmol/L Normal 22-30 [facility] Comment on above: Order Comment: Speci men Type: BLOOD SPECIMEN Performed By: #### 2 4321-2, 2776-, ####[facility]ORATORYCLIA [id number] [place] [address] [place] Creatinine [Mass/Vol] 0.78 mg/dL Normal 0.73-1.22 [facility] Comment on above: Order Comment: Speci men Type: BLOOD SPECIMEN Performed By: #### 2 4321-2, 2776 ####[facility]PITALIA [id number] [place] [address] [place] GFR/1.73 sq M.predicted MDRD (S/P/Bld) [Vol rate/Area] mL/min/{1.73_m2} Normal [facility] Comment on above: Order Comment: Speci [...] actual GFR. Performed By: #### 2 4321-2, ####[facility] HOSPITALIA [id number] [place] [address] [place] Glucose [Mass/Vol] 132 mg/dL High 74-99 [facility] Comment on above: Order Comment: Speci men Type: BLOOD SPECIMEN Result Comment: The [place] Diabetes Association (ADA) provides guidance for cutoff [...] Standards of Medical Care in Diabetes 2016, [place] Diabetes Association. Diabetes Care. 2016.39(Suppl 1). Performed By: #### 2 4321-2, 2777-, ####[facility] LABORATORYIA [id number] [place] [address] [place] Potassium [Moles/Vol] 3.7 mmol/L Normal 3.7-5.1 [facility] Comment on above: Order Comment: Speci men Type: BLOOD SPECIMEN Performed By: #### 2 4321-2, 2776-05, ####[facility] LABORATORYCLIA [id number] [place], [place] [address] [place] [address] [facility] Sodium [Moles/Vol] 159 mmol/L High 136-144 [facility] Comment on above: Order Comment: Speci men Type: BLOOD SPECIMEN Performed By: #### 2 4321-2, 2776-05, ####[facility] LABORATORYCLIA [id number] [address] Urea nitrogen [Mass/Vol] 35 mg/dL High 9-24 [facility] Comment on above: Order Comment: Speci men Type: BLOOD SPECIMEN Performed By: #### 2 4321-2, 2776-05, ####[facility] LABORATORYCLIA [id number] [address] [facility] CASE MANAGEMon 06-14-2021 CASE MANAGEM Normal [facility] CBC panel Auto (Bld)on 06-14 Erythrocyte distribution width (RBC) [Ratio] 16.2 % High 11.5-15.0 [facility] Comment on above: Order Comment: Speci men Type: BLOOD SPECIMEN Performed By: #### 5 8410-2 ####[facility] LABORATORYCLIA [id number] [address] Hematocrit (Bld) [Volume fraction] 35.2 % Low 39.0-51.0 [facility] Comment on above: Order Comment: Speci men Type: BLOOD SPECIMEN Performed By: #### 5 8410-2 ####[facility] LABORATORYCLIA [id number] [address] [facility] Hemoglobin (Bld) [Mass/Vol] 10.1 g/dL Low 13.0-17.0 [facility] Comment on above: Order Comment: Speci men Type: BLOOD SPECIMEN Performed By: #### 5 8410-2 ####[facility] LABORATORYCLIA [id number] [address] MCH (RBC) [Entitic mass] 27.2 pg Normal 26.0-34.0 [facility] Comment on above: Order Comment: Speci men Type: BLOOD SPECIMEN Performed By: #### 5 8410-2 ####[facility] LABORATORYCLIA [id number] [address] MCHC (RBC) [Mass/Vol] 28.7 g/dL Low 30.5-36.0 [facility] Comment on above: Order Comment: Speci men Type: BLOOD SPECIMEN Performed By: #### 5 8410-2 ####[facility] LABORATORYCLIA [id number] [address] MCV (RBC) [Entitic vol] 94.6 fL Normal 80.0-100.0 [facility] Comment on above: Order Comment: Speci men Type: BLOOD SPECIMEN Performed By: #### 5 8410-2 ####[facility] LABORATORYCLIA [id number] [address] Nucleated RBC (Bld) [#/Vol] 10*3/uL Normal <0.01 [facility] Comment on above: Order Comment: Speci men Type: BLOOD SPECIMEN Performed By: #### 5 8410-2 ####[facility] LABORATORYCLIA [id number] [address] Platelet mean volume (Bld) [Entitic vol] 11.0 fL Normal 9.0-12.7 [facility] Comment on above: Order Comment: Speci men Type: BLOOD SPECIMEN Performed By: #### 5 8410-2 ####[facility] LABORATORYCLIA [id number] [address] Platelets (Bld) [#/Vol] 287 10*3/uL Normal 150-400 [facility] Comment on above: Order Comment: Speci men Type: BLOOD SPECIMEN Performed By: #### 5 8410-2 ####[facility] LABORATORYCLIA [id number] [address] RBC (Bld) [#/Vol] 3.72 10*6/uL Low 4.20-6.00 [facility] Comment on above: Order Comment: Speci men Type: BLOOD SPECIMEN Performed By: #### 5 8410-2 ####[facility] LABORATORYCLIA [id number] [address] WBC (Bld) [#/Vol] 12.23 10*3/uL High 3.70-11.00 [facility] Comment on above: Order Comment: Speci men Type: BLOOD SPECIMEN Performed By: #### 5 8410-2 ####[facility] LABORATORYCLIA [id number] [address] Comprehensive metabolic 2000 panelon 06-14-2021 Albumin [Mass/Vol] 3.1 g/dL Low 3.9-4.9 [facility] Comment on above: Order Comment: Speci men Type: BLOOD SPECIMEN Performed By: #### 2 4323-8, HSTNT, 2776-05, ####[facility] LABORATORYCLIA [id number] [address] ALP [Catalytic activity/Vol] 72 U/L Normal 38-113 [facility] Comment on above: Order Comment: Speci men Type: BLOOD SPECIMEN Performed By: #### 2 4323-8, HSTNT, 2776-05, ####[facility] LABORATORYCLIA [id number] [address] ALT With P-5'-P [Catalytic activity/Vol] 57 U/L High 10-54 [facility] Comment on above: Order Comment: Speci men Type: BLOOD SPECIMEN Performed By: #### 2 4323-8, HSTNT, 2776-05, ####[facility]ATORYCLIA [id number] [place], [place] [address] [place] [address] [place] Anion gap [Moles/Vol] 9 mmol/L Normal 9-18 [facility] Comment on above: Order Comment: Speci men Type: BLOOD SPECIMEN Performed By: #### 2 4323-8, HSTNT, 2776-05, ####[facility] LABORATORYCLIA [id number] [place], [place] [address] [place] [address] [place] AST With P-5'-P [Catalytic activity/Vol] 33 U/L Normal 14-40 [facility] Comment on above: Order Comment: Speci men Type: BLOOD SPECIMEN Performed By: #### 2 4323-8, HSTNT, 2776-05, ####[facility] LABORATORYCLIA [id number] [place], [place] [address] [place] [address] [facility] Bilirubin [Mass/Vol] 0.5 mg/dL Normal 0.2-1.3 [facility] Comment on above: Order Comment: Speci men Type: BLOOD SPECIMEN Performed By: #### 2 4323-8, HSTNT, 2776-05, ####[facility] LABORATORYCLIA [id number] [address] [place] Calcium [Mass/Vol] 8.8 mg/dL Normal 8.5-10.2 [facility] Comment on above: Order Comment: Speci men Type: BLOOD SPECIMEN Performed By: #### 2 4323-8, HSTNT, 2776-05, ####[facility]ATORYCLIA [id number] [place] [address] [place] Chloride [Moles/Vol] 124 mmol/L High 97-105 [facility] Comment on above: Order Comment: Speci men Type: BLOOD SPECIMEN Performed By: #### 2 4323-8, HSTNT, 2776-05, ####[facility] LABORATORYCLIA [id number] [place] [address] [place] CO2 [Moles/Vol] 29 mmol/L Normal 22-30 [facility] Comment on above: Order Comment: Speci men Type: BLOOD SPECIMEN Performed By: #### 2 4323-8, HSTNT, 2776-05, ####[facility] LABORATORYCLIA [id number] [address] [place] Creatinine [Mass/Vol] 0.73 mg/dL Normal 0.73-1.22 [facility] Comment on above: Order Comment: Speci men Type: BLOOD SPECIMEN Performed By: #### 2 4323-8, HSTNT, 2776-05, ####[facility] LABORATORYCLIA [id number] [place] [address] [place] GFR/1.73 sq M.predicted MDRD (S/P/Bld) [Vol rate/Area] mL/min/{1.73_m2} Normal [facility] Comment on above: Order Comment: Speci [...] Performed By: #### 2 4323-8, HSTNT, 2776-05, ####[facility] LABORATORYCLIA [id number] [place] [address] [place] Glucose [Mass/Vol] 137 mg/dL High 74-99 [facility] Comment on above: Order Comment: Speci men Type: BLOOD SPECIMEN Result Comment: The [place] Diabetes Association (ADA) provides guidance for cutoff [...] Standards of Medical Care in Diabetes 2016, [place] Diabetes Association. Diabetes Care. 2016.39(Suppl 1). Performed By: #### 2 4323-8, HSTNT, 2776-05, ####[facility] LABORATORYCLIA [id number] [place] [address] [place] Potassium [Moles/Vol] 3.6 mmol/L Low 3.7-5.1 [facility] Comment on above: Order Comment: Speci men Type: BLOOD SPECIMEN Performed By: #### 2 4323-8, HSTNT, 2776-05, ####[facility] LABORATORYCLIA [id number] [place] [address] [place] Protein [Mass/Vol] 5.9 g/dL Low 6.3-8.0 [facility] Comment on above: Order Comment: Speci men Type: BLOOD SPECIMEN Performed By: #### 2 4323-8, HSTNT, 2776-05, ####[facility] LABORATORYCLIA [id number] [address] [place] Sodium [Moles/Vol] 162 mmol/L High 136-144 [facility] Comment on above: Order Comment: Speci men Type: BLOOD SPECIMEN Performed By: #### 2 4323-8, HSTNT, 2776-05, ####[facility] LABORATORYCLIA [id number] [address] [place] Urea nitrogen [Mass/Vol] 33 mg/dL High 9-24 [facility] Comment on above: Order Comment: Speci men Type: BLOOD SPECIMEN Performed By: #### 2 4323-8, HSTNT, 2776-05, ####[facility] LABORATORYCLIA [id number] [address] HIGH SENSITIVITY TROPONIN To n 06-14-2021 HIGH SENSITIVITY TAMIKO 22 ng/L High <12 [facility] Comment on above: Order Comment: Speci [...] day MACE. Performed By: #### H STNT ####[facility] LABORATORYCLIA [id number] [address] HIGH SENSITIVITY TAMIKO 22 ng/L High <12 [facility] Comment on above: Order Comment: Speci [...] MACE. Performed By: #### 2 4323-8, HSTNT, ####[facility] LABORATORYCLIA [id number] [address] [place] Magnesium SerPl-mCncon 06-14 Magnesium [Mass/Vol] 2.9 mg/dL High 1.7-2.3 [facility] Comment on above: Order Comment: Speci men Type: BLOOD SPECIMEN Performed By: #### 2 4323-8, HSTNT, ####[facility] LABORATORYCLIA [id number] [address] [place] Magnesium [Mass/Vol] 3.0 mg/dL High 1.7-2.3 [facility] Comment on above: Order Comment: Speci men Type: BLOOD SPECIMEN Performed By: #### 2 4321-2, 2776-, ####[facility] LABORATORYCLIA [id number] [place], [place] [address] [place] [address] [facility] NURSING PROGon 06-14-2021 NURSING PROG Normal [facility] NUTRITIONon 06-14-2021 NUTRITION Normal [facility] Phosphate SerPl-mCncon 06-14 Phosphate [Mass/Vol] 2.4 mg/dL Low 2.7-4.8 [facility] Comment on above: Order Comment: Speci men Type: BLOOD SPECIMEN Performed By: #### 2 4323-8, HSTNT, 2776-05, ####[facility] LABORATORYCLIA [id number] [address] Phosphate [Mass/Vol] 3.2 mg/dL Normal 2.7-4.8 [facility] Comment on above: Order Comment: Speci men Type: BLOOD SPECIMEN Performed By: #### 2 4321-2, 2776-05, ####[facility] LABORATORYCLIA [id number] [address] [facility] THERAPY NTon 06-14-2021 THERAPY NT Normal [facility] THERAPY NT Normal [facility] THERAPY NT Normal [facility] US DVT LOWER BILon US DVT LOWER RAINER Normal [facility] ALLIED HEALTHon 06-13-2021 ALLIED HEALTH Normal [facility] Basic metabolic 2000 panelon 06-13-2021 Anion gap [Moles/Vol] 7 mmol/L Low 9-18 [facility] Comment on above: Order Comment: Speci men Type: BLOOD SPECIMEN Performed By: #### 2 4321-2, 89820-6, 2776-05 ####[facility]ORYCLIA [id number] [address] [place] Calcium [Mass/Vol] 8.8 mg/dL Normal 8.5-10.2 [facility] Comment on above: Order Comment: Speci men Type: BLOOD SPECIMEN Performed By: #### 2 4321-2, , 2776-05 ####[facility] LABORATORYCLIA [id number] [address] STATES [facility] Chloride [Moles/Vol] 120 mmol/L High 97-105 [facility] Comment on above: Order Comment: Speci men Type: BLOOD SPECIMEN Performed By: #### 2 4321-2, , 2776-05 ####[facility] LABORATORYCLIA [id number] [address] CO2 [Moles/Vol] 28 mmol/L Normal 22-30 [facility] Comment on above: Order Comment: Speci men Type: BLOOD SPECIMEN Performed By: #### 2 4321-2, , 2776-05 ####[facility] LABORATORYCLIA [id number] [address] Creatinine [Mass/Vol] 0.78 mg/dL Normal 0.73-1.22 [facility] Comment on above: Order Comment: Speci men Type: BLOOD SPECIMEN Performed By: #### 2 4321-2, , 2776-05 ####[facility] LABORATORYCLIA [id number] [address] STATES [facility] GFR/1.73 sq M.predicted MDRD (S/P/Bld) [Vol rate/Area] mL/min/{1.73_m2} Normal [facility] Comment on above: Order Comment: Speci [...] Performed By: #### 2 4321-2, , 2776-05 ####[facility] LABORATORYCLIA [id number] [place] [address] [place] Glucose [Mass/Vol] 126 mg/dL High 74-99 [facility] Comment on above: Order Comment: Speci men Type: BLOOD SPECIMEN Result Comment: The [place] Diabetes Association (ADA) provides guidance for cutoff [...] Standards of Medical Care in Diabetes 2016, [place] Diabetes Association. Diabetes Care. 2016.39(Suppl 1). Performed By: #### 2 4320-2, , 2776-05 ####[facility] LABORATORYCLIA [id number] [place] [address] [place] Potassium [Moles/Vol] 3.6 mmol/L Low 3.7-5.1 [facility] Comment on above: Order Comment: Speci men Type: BLOOD SPECIMEN Performed By: #### 2 4320-2, , 2776-05 ####[facility] LABORATORYCLIA [id number] [place] [address] [place] Sodium [Moles/Vol] 155 mmol/L High 136-144 [facility] Comment on above: Order Comment: Speci men Type: BLOOD SPECIMEN Performed By: #### 2 1-2, , 2776-05 ####[facility] LABORATORYCLIA [id number] [place] [address] [place] Urea nitrogen [Mass/Vol] 36 mg/dL High 9-24 [facility] Comment on above: Order Comment: Speci men Type: BLOOD SPECIMEN Performed By: #### 2 4320-2, 11198-1, 2776-05 ####[facility]ATORYCLIA [id number] [place], [place] [address] [place] [address] [facility] Anion gap [Moles/Vol] 6 mmol/L Low 9-18 [facility] Comment on above: Order Comment: Speci men Type: BLOOD SPECIMEN Performed By: #### 2 4321-2, 2776-05, ####[facility] LABORATORYCLIA [id number] [place] [address] [facility] Calcium [Mass/Vol] 6.5 mg/dL Low 8.5-10.2 [facility] Comment on above: Order Comment: Speci men Type: BLOOD SPECIMEN Performed By: #### 2 4321-2, 2776-05, ####[facility]ORYCLIA [id number] [place], [place] [address] [place] [address] [place] Chloride [Moles/Vol] 124 mmol/L High 97-105 [facility] Comment on above: Order Comment: Speci men Type: BLOOD SPECIMEN Performed By: #### 2 4321-2, 2776-05, ####[facility]ORYCLIA [id number] [address] [facility] CO2 [Moles/Vol] 24 mmol/L Normal 22-30 [facility] Comment on above: Order Comment: Speci men Type: BLOOD SPECIMEN Performed By: #### 2 4321-2, 2776-05, ####[facility]ORYCLIA [id number] [place] [address] [place] Creatinine [Mass/Vol] 0.61 mg/dL Low 0.73-1.22 [facility] Comment on above: Order Comment: Speci men Type: BLOOD SPECIMEN Performed By: #### 2 4321-2, 2776-05, ####[facility] LABORATORYCLIA [id number] [place] [address] [place] GFR/1.73 sq M.predicted MDRD (S/P/Bld) [Vol rate/Area] mL/min/{1.73_m2} Normal [facility] Comment on above: Order Comment: Speci [...] GFR. Performed By: #### 2 4321-2, 2777-, ####[facility] LABORATORYCLIA [id number] [place] [address] [place] Glucose [Mass/Vol] 100 mg/dL High 74-99 [facility] Comment on above: Order Comment: Speci men Type: BLOOD SPECIMEN Result Comment: The [place] Diabetes Association (ADA) provides guidance for cutoff [...] Standards of Medical Care in Diabetes 2016, [place] Diabetes [employer]. Diabetes Care. 2016.39(Suppl 1). Performed By: #### 2 4321-2, 2777-, ####[facility] LABORATORYCLIA [id number] [place] [address] [place] Potassium [Moles/Vol] 2.7 mmol/L Low 3.7-5.1 [facility] Comment on above: Order Comment: Speci men Type: BLOOD SPECIMEN Performed By: #### 2 4321-2, 2776-, ####[facility]ATORYCLIA [id number] [place], [place] [id number] [place] [address] Sodium [Moles/Vol] 154 mmol/L High 136-144 [facility] [facility] Comment on above: Order Comment: Speci men Type: BLOOD SPECIMEN Performed By: #### 2 4321-2, 2776-, ####[facility]ATORYCLIA [id number] [address] Urea nitrogen [Mass/Vol] 29 mg/dL High 9-24 [facility] Comment on above: Order Comment: Speci men Type: BLOOD SPECIMEN Performed By: #### 2 4321-2, 2776-05, ####[facility] LABORATORYCLIA [id number] [address] CASE MANAGEMon 06-13-2021 CASE MANAGEM Normal [facility] CBC panel Auto (Bld)on 06-13 Erythrocyte distribution width (RBC) [Ratio] 15.9 % High 11.5-15.0 [facility] Comment on above: Order Comment: Speci men Type: BLOOD SPECIMEN Performed By: #### 5 8410-2 ####[facility] LABORATORYCLIA [id number] [address] Hematocrit (Bld) [Volume fraction] 34.3 % Low 39.0-51.0 [facility] Comment on above: Order Comment: Speci men Type: BLOOD SPECIMEN Performed By: #### 5 8410-2 ####[facility]ORYCLIA [id number] [address] [facility] Hemoglobin (Bld) [Mass/Vol] 9.9 g/dL Low 13.0-17.0 [facility] Comment on above: Order Comment: Speci men Type: BLOOD SPECIMEN Performed By: #### 5 8410-2 ####[facility]ORYCLIA [id number] [address] MCH (RBC) [Entitic mass] 27.3 pg Normal 26.0-34.0 [facility] Comment on above: Order Comment: Speci men Type: BLOOD SPECIMEN Performed By: #### 5 8410-2 ####[facility] LABORATORYCLIA [id number] [address] MCHC (RBC) [Mass/Vol] 28.9 g/dL Low 30.5-36.0 [facility] Comment on above: Order Comment: Speci men Type: BLOOD SPECIMEN Performed By: #### 5 8410-2 ####[facility] LABORATORYCLIA [id number] [address] MCV (RBC) [Entitic vol] 94.5 fL Normal 80.0-100.0 [facility] Comment on above: Order Comment: Speci men Type: BLOOD SPECIMEN Performed By: #### 5 8410-2 ####[facility] LABORATORYCLIA [id number] [address] Nucleated RBC (Bld) [#/Vol] 10*3/uL Normal <0.01 [facility] Comment on above: Order Comment: Speci men Type: BLOOD SPECIMEN Performed By: #### 5 8410-2 ####[facility] LABORATORYCLIA [id number] [address] Platelet mean volume (Bld) [Entitic vol] 11.3 fL Normal 9.0-12.7 [facility] Comment on above: Order Comment: Speci men Type: BLOOD SPECIMEN Performed By: #### 5 8410-2 ####[facility] LABORATORYCLIA [id number] [address] Platelets (Bld) [#/Vol] 269 10*3/uL Normal 150-400 [facility] Comment on above: Order Comment: Speci men Type: BLOOD SPECIMEN Performed By: #### 5 8410-2 ####[facility] LABORATORYCLIA [id number] [place] [address] [place] RBC (Bld) [#/Vol] 3.63 10*6/uL Low 4.20-6.00 [facility] Comment on above: Order Comment: Speci men Type: BLOOD SPECIMEN Performed By: #### 5 8410-2 ####[facility] LABORATORYCLIA [id number] [address] [facility] WBC (Bld) [#/Vol] 12.77 10*3/uL High 3.70-11.00 [facility] Comment on above: Order Comment: Speci men Type: BLOOD SPECIMEN Performed By: #### 5 8410-2 ####[facility] LABORATORYCLIA [id number] [address] Gas and Carbon monoxide pane l (BldV)on 06-13-2021 Base excess Calc (BldV) [Moles/Vol] 5.7 mmol/L High 0-2 [facility] Comment on above: Order Comment: Speci men Type: VENOUS BLOOD SPECIMEN Performed By: #### 2 4344-4 ####[facility] LABORATORYCLIA [id number] [address] Body temperature 99.5 [degF] Normal [facility] Comment on above: Order Comment: Speci men Type: VENOUS BLOOD SPECIMEN Performed By: #### 2 4344-4 ####[facility] LABORATORYCLIA [id number] [address] CALCIUM IONIZED, PH CORRECTED 1.24 mmol/L Normal 1.08-1.30 [facility] Comment on above: Order Comment: Speci men Type: VENOUS BLOOD SPECIMEN Performed By: #### 2 4344-4 ####[facility] LABORATORYCLIA [id number] [address] Calcium.ionized (BldV) [Mass/Vol] 1.23 mmol/L Normal 1.08-1.30 [facility] Comment on above: Order Comment: Speci men Type: VENOUS BLOOD SPECIMEN Performed By: #### 2 4344-4 ####[facility] LABORATORYCLIA [id number] [address] [place] Carboxyhemoglobin (BldV) [Mass fraction] 1.2 % Normal 0.0-2.0 [facility] Comment on above: Order Comment: Speci men Type: VENOUS BLOOD SPECIMEN Result Comment: Carb oxyhemoglobin Reference Range for Smokers: 2.0-8.0% Performed By: #### 2 4344-4 ####[facility]ORYCLIA [id number] [address] [place] CO2 (BldV) [Partial pressure] 48 mm[Hg] Normal 42-55 [facility] Comment on above: Order Comment: Speci men Type: VENOUS BLOOD SPECIMEN Performed By: #### 2 4344-4 ####[facility]ORYCLIA [id number] [address] [place] CO2 [Moles/Vol] 28.2 mmol/L Normal 25-29 [facility] Comment on above: Order Comment: Speci men Type: VENOUS BLOOD SPECIMEN Performed By: #### 2 4344-4 ####[facility]ORYCLIA [id number] [address] [place] CO2 adjusted to patient's actual temperature (BldV) [Partial pressure] 49 mmHg Normal 42-55 [facility] Comment on above: Order Comment: Speci men Type: VENOUS BLOOD SPECIMEN Performed By: #### 2 4344-4 ####[facility]ORYCLIA [id number] [address] [place] Glucose [Mass/Vol] 131 mg/dL High 60-105 [facility] Comment on above: Order Comment: Speci men Type: VENOUS BLOOD SPECIMEN Performed By: #### 2 4344-4 ####[facility]ORATORYCLIA [id number] [place] [address] [place] HCO3 (Bld) [Moles/Vol] 30.6 mmol/L High 24-[address] [facility] Comment on above: Order Comment: Speci men Type: VENOUS BLOOD SPECIMEN Performed By: #### 2 4344-4 ####[facility]ORYCLIA [id number] [address] Hematocrit (Bld) [Volume fraction] 32.8 % Low 39.0-51.0 [facility] Comment on above: Order Comment: Speci men Type: VENOUS BLOOD SPECIMEN Performed By: #### 2 4344-4 ####[facility]ORYCLIA [id number] [address] Hemoglobin (Bld) [Mass/Vol] 10.6 g/dL Low 13.0-17.0 [facility] Comment on above: Order Comment: Speci men Type: VENOUS BLOOD SPECIMEN Performed By: #### 2 4344-4 ####[facility] LABORATORYCLIA [id number] [address] LITERS 6 Liters/min Normal [facility] Comment on above: Order Comment: Speci men Type: VENOUS BLOOD SPECIMEN Performed By: #### 2 4344-4 ####[facility]ORYCLIA [id number] [address] Methemoglobin (Bld) [Mass fraction] 1.0 % Normal 0.0-1.5 [facility] Comment on above: Order Comment: Speci men Type: VENOUS BLOOD SPECIMEN Performed By: #### 2 4344-4 ####[facility]ORYCLIA [id number] [address] O2 THERAPY NC = Nasal Cannula Normal [facility] Comment on above: Order Comment: Speci men Type: VENOUS BLOOD SPECIMEN Performed By: #### 2 4344-4 ####[facility]ORYCLIA [id number] [address] Oxygen (BldV) [Partial pressure] 42 mm[Hg] Normal 35-45 [facility] Comment on above: Order Comment: Speci men Type: VENOUS BLOOD SPECIMEN Performed By: #### 2 4344-4 ####[facility]ORYCLIA [id number] [place] [address] [place] Oxygen adjusted to patient's actual temperature (BldV) [Partial pressure] 43.8 mmHg Normal 35-45 [facility] Comment on above: Order Comment: Speci men Type: VENOUS BLOOD SPECIMEN Performed By: #### 2 4344-4 ####[facility]ORYCLIA [id number] [place], [place] [address] [place] [address] [facility] Oxygen saturation in Blood 76.7 % Normal 60-85 [facility] Comment on above: Order Comment: Speci men Type: VENOUS BLOOD SPECIMEN Performed By: #### 2 4344-4 ####[facility]ORYCLIA [id number] [address] OF [facility] Oxyhemoglobin (BldV) [Mass fraction] 75 % Normal 60-85 [facility] Comment on above: Order Comment: Speci men Type: VENOUS BLOOD SPECIMEN Performed By: #### 2 4344-4 ####[facility]ORYCLIA [id number] [address] [place] pH (BldV) 7.42 [pH] Normal 7.32-7.42 [facility] Comment on above: Order Comment: Speci men Type: VENOUS BLOOD SPECIMEN Performed By: #### 2 4344-4 ####[facility]ORYCLIA [id number] [address] [facility] pH adjusted to patient's actual temperature (BldV) 7.41 Normal 7.32-7.42 [facility] Comment on above: Order Comment: Speci men Type: VENOUS BLOOD SPECIMEN Performed By: #### 2 4344-4 ####[facility]ORYCLIA [id number] [address] [place] Potassium [Moles/Vol] 3.5 mmol/L Normal 3.5-5.0 [facility] Comment on above: Order Comment: Speci men Type: VENOUS BLOOD SPECIMEN Performed By: #### 2 4344-4 ####[facility]ORYCLIA [id number] [address] [place] Sodium [Moles/Vol] 157 mmol/L High 136-144 [facility] Comment on above: Order Comment: Speci men Type: VENOUS BLOOD SPECIMEN Performed By: #### 2 4344-4 ####[facility] LABORATORYCLIA [id number] [place], [place] [address] [place] [address] [facility] Magnesium SerPl-mCncon 06-13 Magnesium [Mass/Vol] 3.0 mg/dL High 1.7-2.3 [facility] Comment on above: Order Comment: Speci men Type: BLOOD SPECIMEN Performed By: #### 2 4321-2, , 2776-05 ####[facility] LABORATORYCLIA [id number] [address] Magnesium [Mass/Vol] 2.2 mg/dL Normal 1.7-2.3 [facility] Comment on above: Order Comment: Speci men Type: BLOOD SPECIMEN Performed By: #### 2 4321-2, 2776-05, ####[facility]ORATORYCLIA [id number] [address] [facility] Phosphate SerPl-ncon 06-13 Phosphate [Mass/Vol] 2.2 mg/dL Low 2.7-4.8 [facility] Comment on above: Order Comment: Speci men Type: BLOOD SPECIMEN Performed By: #### 2 4321-2, , 2776-05 ####[facility]ORYCLIA [id number] [address] OF [facility] Phosphate [Mass/Vol] 1.8 mg/dL Low 2.7-4.8 [facility] Comment on above: Order Comment: Speci men Type: BLOOD SPECIMEN Performed By: #### 2 4321-2, 2776-05, ####[facility]ORYCLIA [id number] [address] [place] XR CHEST 1V FRONTALon 2021 XR CHEST 1V FRONTAL Normal [facility] ALLIED HEALTHon 06-12-2021 ALLIED HEALTH Normal [facility] BRIEF OP NOTon 06-12-2021 BRIEF OP NOT Normal [facility] Bacteria Fld Culton 06-12-19 22 Bacteria identified Cx Nom (Body fld) CULTURE, BODY FLD: No growth 5 days GRAM STAIN: No organisms seen Moderate Polymorphonuclear leukocytes Normal [facility] Comment on above: Performed By: #### 6 11-4 ####[facility] LABORATORYCLIA [id number] [address] STATES OF [facility] Basic metabolic 2000 panelon 06-12-2021 Anion gap [Moles/Vol] 6 mmol/L Low 9-18 [facility] Comment on above: Order Comment: Speci men Type: BLOOD SPECIMEN Performed By: #### 2 777-1, 67297-9, ####[facility]ORYCLIA [id number] [place] [address] [place] Calcium [Mass/Vol] 8.7 mg/dL Normal 8.5-10.2 [facility] Comment on above: Order Comment: Speci men Type: BLOOD SPECIMEN Performed By: #### 2 777-1, 45255-4, ####[facility]ORYCLIA [id number] [place] [address] [place] Chloride [Moles/Vol] 118 mmol/L High 97-105 [facility] Comment on above: Order Comment: Speci men Type: BLOOD SPECIMEN Performed By: #### 2 777-1, 49970-8, ####[facility]ORYCLIA [id number] [place] [address] [place] CO2 [Moles/Vol] 28 mmol/L Normal 22-30 [facility] Comment on above: Order Comment: Speci men Type: BLOOD SPECIMEN Performed By: #### 2 777-1, 61311-3, ####[facility]ORYCLIA [id number] [place] [address] [place] Creatinine [Mass/Vol] 0.77 mg/dL Normal 0.73-1.22 [facility] Comment on above: Order Comment: Speci [facility] Type: BLOOD SPECIMEN Performed By: #### 2 777-1, 97174-2, ####[facility]CL[facility] [id number] [place] [id number] [place] GFR/1.73 sq M.predicted MDRD (S/P/Bld) [Vol rate/Area] mL/min/{1.73_m2} Normal [facility] Comment on above: Order Comment: Speci [...] actual GFR. Performed By: #### 2 777-1, 04224-0, ####[facility]ITALIA [id number] [place] [id number] [place] Glucose [Mass/Vol] 116 mg/dL High 74-99 [facility] Comment on above: Order Comment: [facility] Type: BLOOD SPECIMEN Result Comment: The [place] Diabetes Association (ADA) provides guidance for cutoff [...] Standards of Medical Care in Diabetes 2016, [place] Diabetes Association. Diabetes Care. 2016.39(Suppl 1). Performed By: #### 2 777-1, 23630-0, ####[facility]ORYCLIA [id number] [place], [place] [address] [place] [address] [place] Potassium [Moles/Vol] 4.0 mmol/L Normal 3.7-5.1 [facility] Comment on above: Order Comment: Speci men Type: BLOOD SPECIMEN Performed By: #### 2 777-1, 06029-5, ####[facility]ORYCLIA [id number] [address] STATES [facility] Sodium [Moles/Vol] 152 mmol/L High 136-144 [facility] Comment on above: Order Comment: Speci men Type: BLOOD SPECIMEN Performed By: #### 2 777-1, 19010-0, ####[facility] LABORATORYCLIA [id number] [address] STATES [facility] Urea nitrogen [Mass/Vol] 34 mg/dL High 9-24 [facility] Comment on above: Order Comment: Speci men Type: BLOOD SPECIMEN Performed By: #### 2 777-1, 79033-9, ####[facility]ORATORYCLIA [id number] [address] CBC panel Auto (Bld)on 06-12 Erythrocyte distribution width (RBC) [Ratio] 16.1 % High 11.5-15.0 [facility] Comment on above: Order Comment: Speci men Type: BLOOD SPECIMEN Performed By: #### 5 8410-2 ####[facility]ORATORYCLIA [id number] [address] Hematocrit (Bld) [Volume fraction] 32.8 % Low 39.0-51.0 [facility] Comment on above: Order Comment: Speci men Type: BLOOD SPECIMEN Performed By: #### 5 8410-2 ####[facility] LABORATORYCLIA [id number] [address] [place] Hemoglobin (Bld) [Mass/Vol] 9.9 g/dL Low 13.0-17.0 [facility] Comment on above: Order Comment: Speci men Type: BLOOD SPECIMEN Performed By: #### 5 8410-2 ####[facility]ORATORYCLIA [id number] [address] MCH (RBC) [Entitic mass] 28.4 pg Normal 26.0-34.0 [facility] Comment on above: Order Comment: Speci men Type: BLOOD SPECIMEN Performed By: #### 5 8410-2 ####[facility] LABORATORYCLIA [id number] [address] MCHC (RBC) [Mass/Vol] 30.2 g/dL Low 30.5-36.0 [facility] Comment on above: Order Comment: Speci men Type: BLOOD SPECIMEN Performed By: #### 5 8410-2 ####[facility] LABORATORYCLIA [id number] [address] MCV (RBC) [Entitic vol] 94.3 fL Normal 80.0-100.0 [facility] Comment on above: Order Comment: Speci men Type: BLOOD SPECIMEN Performed By: #### 5 8410-2 ####[facility]ORATORYCLIA [id number] [address] Nucleated RBC (Bld) [#/Vol] 10*3/uL Normal <0.01 [facility] Comment on above: Order Comment: Speci men Type: BLOOD SPECIMEN Performed By: #### 5 8410-2 ####[facility]ORATORYCLIA [id number] [address] Platelet mean volume (Bld) [Entitic vol] 11.2 fL Normal 9.0-12.7 [facility] Comment on above: Order Comment: Speci men Type: BLOOD SPECIMEN Performed By: #### 5 8410-2 ####[facility]ORATORYCLIA [id number] [address] Platelets (Bld) [#/Vol] 218 10*3/uL Normal 150-400 [facility] Comment on above: Order Comment: Speci men Type: BLOOD SPECIMEN Performed By: #### 5 8410-2 ####[facility] LABORATORYCLIA [id number] [address] [facility] RBC (Bld) [#/Vol] 3.48 10*6/uL Low 4.20-6.00 [facility] Comment on above: Order Comment: Speci men Type: BLOOD SPECIMEN Performed By: #### 5 8410-2 ####[facility]ORATORYCLIA [id number] [address] WBC (Bld) [#/Vol] 13.33 10*3/uL High 3.70-11.00 [facility] Comment on above: Order Comment: Speci men Type: BLOOD SPECIMEN Performed By: #### 5 8410-2 ####[facility] LABORATORYCLIA [id number] [address] CONSULT PROGon 06-12-2021 CONSULT PROG Normal [facility] CT DRN PLACE PERIT/RETROP [place] BIon 06-12-[address] PERIT/RETROP FL BI Normal [facility] HISTORY PHYSICALon HISTORY PHYSICAL Normal [facility] Magnesium SerPl-mCncon 06-12 Magnesium [Mass/Vol] 2.7 mg/dL High 1.7-2.3 [facility] Comment on above: Order Comment: Speci men Type: BLOOD SPECIMEN Performed By: #### 2 777-1, 55890-0, 46759-7 ####[facility] LABORATORYCLIA [id number] [address] PT panel Coag (PPP)on 2021 INR Coag (PPP) [Relative time] 1.1 {INR} Normal 0.9-1.3 [facility] Comment on above: Order Comment: Speci men Type: BLOOD SPECIMEN Result Comment: Yris min K Antagonist (VKA) Therapeutic Range: INR 2 to 3 (Target INR of 2.5)Note: For patients treated with VKA drugs, such as warfarin, the [place] [employer] 2012 Guideline recommends [...] al. Chest 2012, 141:7S-47SNishimura RA, et al. [facility] 2017, 70: 252-289 Performed By: #### 3 4528-0 ####[facility] LABORATORYCLIA [id number] [place] [address] [place] PT Coag (PPP) [Time] 11.9 s Normal 9.7-13.0 [facility] Comment on above: Order Comment: Speci men Type: BLOOD SPECIMEN Performed By: #### 3 4528-0 ####[facility] LABORATORYCLIA [id number] [place] [address] [place] Phosphate SerPl-mCncon 06-12 Phosphate [Mass/Vol] 2.2 mg/dL Low 2.7-4.8 [facility] Comment on above: Order Comment: Speci men Type: BLOOD SPECIMEN Performed By: #### 2 777-1, 26771-3, 58708-6 ####[facility] LABORATORYCLIA [id number] [place] [address] [place] XR ABDOMEN 1V SUPINEon 06-12 XR ABDOMEN 1V SUPINE Normal [facility] ALLIED HEALTHon 06-11-2021 ALLIED HEALTH Normal [facility] Bacteria Bld Culton 06-11-19 22 Bacteria identified Cx Nom (Bld) CULTURE, BLOOD: No growth 5 days Normal [facility] Comment on above: Performed By: #### 6 00-7 ####[facility] LABORATORYCLIA [id number] [address] Bacteria identified Cx Nom (Bld) CULTURE, BLOOD: No growth 5 days Normal [facility] Comment on above: Performed By: #### 6 00-7 ####[facility] LABORATORYCLIA [id number] [address] [place] Bacteria Ur Culton 2 Bacteria identified Cx Nom (U) CULTURE, URINE: No growth (<1,000 CFU/ml) Normal [facility] Comment on above: Performed By: #### 6 30-4 ####[facility] LABORATORYCLIA [id number] [address] [facility] Basic metabolic 2000 panelon 06-11-2021 Anion gap [Moles/Vol] 9 mmol/L Normal 9-18 [facility] Comment on above: Order Comment: Speci men Type: BLOOD SPECIMEN Performed By: #### 1 9123-9, 27711-04, 01533-6 ####[facility]ORATORYCLIA [id number] [address] [place] Calcium [Mass/Vol] 8.5 mg/dL Normal 8.5-10.2 [facility] Comment on above: Order Comment: Speci men Type: BLOOD SPECIMEN Performed By: #### 1 9123-9, 277-, 28077-8 ####[facility] LABORATORYCLIA [id number] [address] [place] Chloride [Moles/Vol] 118 mmol/L High 97-105 [facility] Comment on above: Order Comment: Speci men Type: BLOOD SPECIMEN Performed By: #### 1 9123-9, 277-1, 45838-8 ####[facility] LABORATORYCLIA [id number] [address] [place] CO2 [Moles/Vol] 27 mmol/L Normal 22-30 [facility] Comment on above: Order Comment: Speci men Type: BLOOD SPECIMEN Performed By: #### 1 9123-9, 2777-1, 53524-7 ####[facility]PITALIA [id number] [place] [address] [place] Creatinine [Mass/Vol] 0.75 mg/dL Normal 0.73-1.22 [facility] Comment on above: Order Comment: Speci men Type: BLOOD SPECIMEN Performed By: #### 1 9123-9, 2777-, 23561-5 ####[facility]PITALIA [id number] [place] [id number] [facility] [place] GFR/1.73 sq M.predicted MDRD (S/P/Bld) [Vol rate/Area] mL/min/{1.73_m2} Normal [facility] Comment on above: Order Comment: Speci [...] GFR. Performed By: #### 1 9123-9, 2777-, 18282-9 ####[facility]ITALIA [id number] [address] [place] Glucose [Mass/Vol] 142 mg/dL High 74-99 [facility] Comment on above: Order Comment: [facility] Type: BLOOD SPECIMEN Result Comment: The [place] Diabetes Association (ADA) provides guidance for cutoff [...] Standards of Medical Care in Diabetes 2016, [place] Diabetes Association. Diabetes Care. 2016.39(Suppl 1). Performed By: #### 1 9123-9, 2777-1, 28958-0 ####[facility] LABORATORYCLIA [id number] [address] Potassium [Moles/Vol] 3.6 mmol/L Low 3.7-5.1 [facility] Comment on above: Order Comment: Speci men Type: BLOOD SPECIMEN Performed By: #### 1 9123-9, 2776-, 46611-6 ####[facility] LABORATORYCLIA [id number] [address] Sodium [Moles/Vol] 154 mmol/L High 136-144 [facility] Comment on above: Order Comment: Speci men Type: BLOOD SPECIMEN Performed By: #### 1 9123-9, 277-, 50749-0 ####[facility] LABORATORYCLIA [id number] [address] Urea nitrogen [Mass/Vol] 31 mg/dL High 9-24 [facility] Comment on above: Order Comment: Speci men Type: BLOOD SPECIMEN Performed By: #### 1 9123-9, 277-, 32578-3 ####[facility] LABORATORYCLIA [id number] [address] C diff Tox gens Stl Ql MEGAN+p robeon 06-11-2021 C. difficile toxin genes MEGAN+probe Ql (Stl) Negative Normal Negative for C. difficile toxin by PCR [facility] Comment on above: Order Comment: Speci men Type: STOOL SPECIMEN Performed By: #### 5 4067-4 ####[facility] LABORATORYCLIA [id number] [address] CBC W Auto Differential pane l (Bld)on 06-11-2021 Basophils (Bld) [#/Vol] 0.03 10*3/uL Normal <0.11 [facility] Comment on above: Order Comment: Speci men Type: BLOOD SPECIMEN Performed By: #### 5 7021-8 ####[facility]ORATORYCLIA [id number] [address] Basophils/100 WBC (Bld) 0.2 % Normal [facility] Comment on above: Order Comment: Speci men Type: BLOOD SPECIMEN Performed By: #### 5 7021-8 ####[facility]ATORYCLIA [id number] [address] Differential cell count method Nom (Bld) Auto Normal [facility] Comment on above: Order Comment: Speci men Type: BLOOD SPECIMEN Performed By: #### 5 7021-8 ####[facility]ORYCLIA [id number] [address] Eosinophils (Bld) [#/Vol] 0.19 10*3/uL Normal <0.46 [facility] Comment on above: Order Comment: Speci men Type: BLOOD SPECIMEN Performed By: #### 5 7021-8 ####[facility]ATORYCLIA [id number] [address] Eosinophils/100 WBC (Bld) 1.5 % Normal [facility] Comment on above: Order Comment: Speci men Type: BLOOD SPECIMEN Performed By: #### 5 7021-8 ####[facility]ATORYCLIA [id number] [address] Erythrocyte distribution width (RBC) [Ratio] 16.3 % High 11.5-15.0 [facility] Comment on above: Order Comment: Speci men Type: BLOOD SPECIMEN Performed By: #### 5 7021-8 ####[facility]ATORYCLIA [id number] [address] Hematocrit (Bld) [Volume fraction] 32.1 % Low 39.0-51.0 [facility] Comment on above: Order Comment: Speci men Type: BLOOD SPECIMEN Performed By: #### 5 7021-8 ####[facility] LABORATORYCLIA [id number] [address] Hemoglobin (Bld) [Mass/Vol] 9.3 g/dL Low 13.0-17.0 [facility] Comment on above: Order Comment: Speci men Type: BLOOD SPECIMEN Performed By: #### 5 7021-8 ####[facility] LABORATORYCLIA [id number] [address] IMMATURE GRAN % 0.6 % Normal [facility] Comment on above: Order Comment: Speci men Type: BLOOD SPECIMEN Performed By: #### 5 7021-8 ####[facility] LABORATORYCLIA [id number] [address] IMMATURE GRAN ABS 0.08 k/uL Normal <0.10 [facility] Comment on above: Order Comment: Speci men Type: BLOOD SPECIMEN Performed By: #### 5 7021-8 ####[facility] LABORATORYCLIA [id number] [address] Lymphocytes (Bld) [#/Vol] 1.65 10*3/uL Normal 1.00-4.00 [facility] Comment on above: Order Comment: Speci men Type: BLOOD SPECIMEN Performed By: #### 5 7021-8 ####[facility] LABORATORYCLIA [id number] [address] Lymphocytes/100 WBC (Bld) 12.8 % Normal [facility] Comment on above: Order Comment: Speci men Type: BLOOD SPECIMEN Performed By: #### 5 7021-8 ####[facility] LABORATORYCLIA [id number] [address] MCH (RBC) [Entitic mass] 27.2 pg Normal 26.0-34.0 [facility] Comment on above: Order Comment: Speci men Type: BLOOD SPECIMEN Performed By: #### 5 7021-8 ####[facility]ORYCLIA [id number] MCHC (RBC) [Mass/Vol] 29.0 g/dL Low 30.5-36.0 [facility] Comment on above: Order Comment: Speci men Type: BLOOD SPECIMEN Performed By: #### 5 7021-8 ####[facility] LABORATORYCLIA [id number] [address] MCV (RBC) [Entitic vol] 93.9 fL Normal 80.0-100.0 [facility] Comment on above: Order Comment: Speci men Type: BLOOD SPECIMEN Performed By: #### 5 7021-8 ####[facility] LABORATORYCLIA [id number] [address] Monocytes (Bld) [#/Vol] 0.68 10*3/uL Normal <0.87 [facility] Comment on above: Order Comment: Speci men Type: BLOOD SPECIMEN Performed By: #### 5 7021-8 ####[facility] LABORATORYCLIA [id number] [address] Monocytes/100 WBC (Bld) 5.3 % Normal [facility] Comment on above: Order Comment: Speci men Type: BLOOD SPECIMEN Performed By: #### 5 7021-8 ####[facility] LABORATORYCLIA [id number] [address] Neutrophils (Bld) [#/Vol] 10.22 10*3/uL High 1.45-7.50 [facility] Comment on above: Order Comment: Speci men Type: BLOOD SPECIMEN Performed By: #### 5 7021-8 ####[facility] LABORATORYCLIA [id number] [address] Neutrophils/100 WBC (Bld) 79.6 % Normal [facility] Comment on above: Order Comment: Speci men Type: BLOOD SPECIMEN Performed By: #### 5 7021-8 ####[facility] LABORATORYCLIA [id number] [address] Nucleated RBC (Bld) [#/Vol] 10*3/uL Normal <0.01 [facility] Comment on above: Order Comment: Speci men Type: BLOOD SPECIMEN Performed By: #### 5 7021-8 ####[facility] LABORATORYCLIA [id number] [address] Nucleated RBC/100 WBC (Bld) [Ratio] 0.0 /100 WBC Normal 0.0 [facility] Comment on above: Order Comment: Speci men Type: BLOOD SPECIMEN Performed By: #### 5 7021-8 ####[facility] LABORATORYCLIA [id number] [address] Platelet mean volume (Bld) [Entitic vol] 11.1 fL Normal 9.0-12.7 [facility] Comment on above: Order Comment: Speci men Type: BLOOD SPECIMEN Performed By: #### 5 7021-8 ####[facility] LABORATORYCLIA [id number] [address] Platelets (Bld) [#/Vol] 188 10*3/uL Normal 150-400 [facility] Comment on above: Order Comment: Speci men Type: BLOOD SPECIMEN Performed By: #### 5 7021-8 ####[facility] LABORATORYCLIA [id number] [address] RBC (Bld) [#/Vol] 3.42 10*6/uL Low 4.20-6.00 [facility] Comment on above: Order Comment: Speci men Type: BLOOD SPECIMEN Performed By: #### 5 7021-8 ####[facility] LABORATORYCLIA [id number] [address] WBC (Bld) [#/Vol] 12.85 10*3/uL High 3.70-11.00 [facility] Comment on above: Order Comment: Speci men Type: BLOOD SPECIMEN Performed By: #### 5 7021-8 ####[facility] LABORATORYCLIA [id number] [address] CBC panel Auto (Bld)on 06-11 Erythrocyte distribution width (RBC) [Ratio] 16.2 % High 11.5-15.0 [facility] Comment on above: Order Comment: Speci men Type: BLOOD SPECIMEN Performed By: #### 5 8410-2 ####[facility] LABORATORYCLIA [id number] [address] Hematocrit (Bld) [Volume fraction] 34.5 % Low 39.0-51.0 [facility] Comment on above: Order Comment: Speci men Type: BLOOD SPECIMEN Performed By: #### 5 8410-2 ####[facility] LABORATORYCLIA [id number] [address] Hemoglobin (Bld) [Mass/Vol] 10.3 g/dL Low 13.0-17.0 [facility] Comment on above: Order Comment: Speci men Type: BLOOD SPECIMEN Performed By: #### 5 8410-2 ####[facility] LABORATORYCLIA [id number] [address] MCH (RBC) [Entitic mass] 28.1 pg Normal 26.0-34.0 [facility] Comment on above: Order Comment: Speci men Type: BLOOD SPECIMEN Performed By: #### 5 8410-2 ####[facility] LABORATORYCLIA [id number] [address] MCHC (RBC) [Mass/Vol] 29.9 g/dL Low 30.5-36.0 [facility] Comment on above: Order Comment: Speci men Type: BLOOD SPECIMEN Performed By: #### 5 8410-2 ####[facility] LABORATORYCLIA [id number] [address] MCV (RBC) [Entitic vol] 94.3 fL Normal 80.0-100.0 [facility] Comment on above: Order Comment: Speci men Type: BLOOD SPECIMEN Performed By: #### 5 8410-2 ####[facility] LABORATORYCLIA [id number] [address] Nucleated RBC (Bld) [#/Vol] 10*3/uL Normal <0.01 [facility] Comment on above: Order Comment: Speci men Type: BLOOD SPECIMEN Performed By: #### 5 8410-2 ####[facility] LABORATORYCLIA [id number] [address] Platelet mean volume (Bld) [Entitic vol] 10.9 fL Normal 9.0-12.7 [facility] Comment on above: Order Comment: Speci men Type: BLOOD SPECIMEN Performed By: #### 5 8410-2 ####[facility] LABORATORYCLIA [id number] [address] Platelets (Bld) [#/Vol] 210 10*3/uL Normal 150-400 [facility] Comment on above: Order Comment: Speci men Type: BLOOD SPECIMEN Performed By: #### 5 8410-2 ####[facility] LABORATORYCLIA [id number] [address] [facility] RBC (Bld) [#/Vol] 3.66 10*6/uL Low 4.20-6.00 [facility] Comment on above: Order Comment: Speci men Type: BLOOD SPECIMEN Performed By: #### 5 8410-2 ####[facility] LABORATORYCLIA [id number] [address] WBC (Bld) [#/Vol] 13.03 10*3/uL High 3.70-11.00 [facility] Comment on above: Order Comment: Speci men Type: BLOOD SPECIMEN Performed By: #### 5 8410-2 ####[facility] LABORATORYCLIA [id number] [address] CONSULT PROGon 06-11-2021 CONSULT PROG Normal [facility] CONSULT PROG Normal [facility] CONSULT PROG Normal [facility] CT ABD/PEL W IVCONon 022 CT ABD/PEL W IVCON Invalid Interpretation Code [facility] Magnesium SerPl-mCncon 06-11 Magnesium [Mass/Vol] 2.7 mg/dL High 1.7-2.3 [facility] Comment on above: Order Comment: Speci men Type: BLOOD SPECIMEN Performed By: #### 1 9123-9, 2777-1, 49869-9 ####[facility] LABORATORYCLIA [id number] [place], [place] [address] [place] [address] [place] Phosphate SerPl-mCncon 06-11 Phosphate [Mass/Vol] 2.5 mg/dL Low 2.7-4.8 [facility] Comment on above: Order Comment: Speci men Type: BLOOD SPECIMEN Performed By: #### 1 9123-9, 2776-05, 52672-0 ####[facility] LABORATORYCLIA [id number] [address] [place] Basic metabolic 2000 panelon 06-10-2021 Anion gap [Moles/Vol] 7 mmol/L Low 9-18 [facility] Comment on above: Order Comment: Speci men Type: BLOOD SPECIMEN Performed By: #### 2 777-1, 29943-3, , HFP ####[facility]ORYCLIA [id number] [address] [place] Calcium [Mass/Vol] 8.5 mg/dL Normal 8.5-10.2 [facility] Comment on above: Order Comment: Speci men Type: BLOOD SPECIMEN Performed By: #### 2 777-1, 78875-5, , HFP ####[facility]ATORYCLIA [id number] [place] [address] [place] Chloride [Moles/Vol] 118 mmol/L High 97-105 [facility] Comment on above: Order Comment: Speci men Type: BLOOD SPECIMEN Performed By: #### 2 777-1, 87179-8, , HFP ####[facility]ATORYCLIA [id number] [place] [address] [place] CO2 [Moles/Vol] 26 mmol/L Normal 22-30 [facility] Comment on above: Order Comment: Speci men Type: BLOOD SPECIMEN Performed By: #### 2 777-1, 75388-0, , [facility] ####[facility] LABORATORYCLIA [id number] [place] [address] [place] Creatinine [Mass/Vol] 0.70 mg/dL Low 0.73-1.22 [facility] Comment on above: Order Comment: Speci men Type: BLOOD SPECIMEN Performed By: #### 2 777-1, 22969-9, , [facility] ####[facility] LABORATORYCLIA [id number] [place] [id number] [place] GFR/1.73 sq M.predicted MDRD (S/P/Bld) [Vol rate/Area] mL/min/{1.73_m2} Normal [facility] Comment on above: Order Comment: Speci [...] actual GFR. Performed By: #### 2 777-1, 92871-8, , [facility] ####[facility] LABORATORYCLIA [id number] [place] [address] [place] Glucose [Mass/Vol] 135 mg/dL High 74-99 [facility] Comment on above: Order Comment: Speci men Type: BLOOD SPECIMEN Result Comment: The [place] Diabetes Association (ADA) provides guidance for cutoff [...] Standards of Medical Care in Diabetes 2016, [place] Diabetes Association. Diabetes Care. 2016.39(Suppl 1). Performed By: #### 2 777-1, 21017-1, , [facility] ####[facility] LABORATORYCLIA [id number] [address] STATES OF [facility] Potassium [Moles/Vol] 3.9 mmol/L Normal 3.7-5.1 [facility] Comment on above: Order Comment: Speci men Type: BLOOD SPECIMEN Performed By: #### 2 777-1, 33470-4, , [facility] ####[facility] LABORATORYCLIA [id number] [address] Sodium [Moles/Vol] 151 mmol/L High 136-144 [facility] Comment on above: Order Comment: Speci men Type: BLOOD SPECIMEN Performed By: #### 2 777-1, 00275-8, , HFP ####[facility] LABORATORYCLIA [id number] [address] Urea nitrogen [Mass/Vol] 27 mg/dL High 9-24 [facility] Comment on above: Order Comment: Speci men Type: BLOOD SPECIMEN Performed By: #### 2 777-1, 43071-4, , [facility] ####[facility] LABORATORYCLIA [id number] [address] CASE MANAGEMon 06-10-2021 CASE MANAGEM Normal [facility] CBC panel Auto (Bld)on 06-10 Erythrocyte distribution width (RBC) [Ratio] 16.2 % High 11.5-15.0 [facility] Comment on above: Order Comment: Speci men Type: BLOOD SPECIMEN Performed By: #### 5 8410-2 ####[facility] LABORATORYCLIA [id number] [address] Hematocrit (Bld) [Volume fraction] 34.8 % Low 39.0-51.0 [facility] Comment on above: Order Comment: Speci men Type: BLOOD SPECIMEN Performed By: #### 5 8410-2 ####[facility] LABORATORYCLIA [id number] [address] Hemoglobin (Bld) [Mass/Vol] 10.2 g/dL Low 13.0-17.0 [facility] Comment on above: Order Comment: Speci men Type: BLOOD SPECIMEN Performed By: #### 5 8410-2 ####[facility] LABORATORYCLIA [id number] [address] MCH (RBC) [Entitic mass] 27.1 pg Normal 26.0-34.0 [facility] Comment on above: Order Comment: Speci men Type: BLOOD SPECIMEN Performed By: #### 5 8410-2 ####[facility] LABORATORYCLIA [id number] [address] MCHC (RBC) [Mass/Vol] 29.3 g/dL Low 30.5-36.0 [facility] Comment on above: Order Comment: Speci men Type: BLOOD SPECIMEN Performed By: #### 5 8410-2 ####[facility] LABORATORYCLIA [id number] [address] MCV (RBC) [Entitic vol] 92.6 fL Normal 80.0-100.0 [facility] Comment on above: Order Comment: Speci men Type: BLOOD SPECIMEN Performed By: #### 5 8410-2 ####[facility] LABORATORYCLIA [id number] [address] Nucleated RBC (Bld) [#/Vol] 10*3/uL Normal <0.01 [facility] Comment on above: Order Comment: Speci men Type: BLOOD SPECIMEN Performed By: #### 5 8410-2 ####[facility]ORATORYCLIA [id number] [address] Platelet mean volume (Bld) [Entitic vol] 10.4 fL Normal 9.0-12.7 [facility] Comment on above: Order Comment: Speci men Type: BLOOD SPECIMEN Performed By: #### 5 8410-2 ####[facility] LABORATORYCLIA [id number] [address] [facility] Platelets (Bld) [#/Vol] 206 10*3/uL Normal 150-400 [facility] Comment on above: Order Comment: Speci men Type: BLOOD SPECIMEN Performed By: #### 5 8410-2 ####[facility] LABORATORYCLIA [id number] [address] RBC (Bld) [#/Vol] 3.76 10*6/uL Low 4.20-6.00 [facility] Comment on above: Order Comment: Speci men Type: BLOOD SPECIMEN Performed By: #### 5 8410-2 ####[facility] LABORATORYCLIA [id number] [address] WBC (Bld) [#/Vol] 11.36 10*3/uL High 3.70-11.00 [facility] Comment on above: Order Comment: Speci men Type: BLOOD SPECIMEN Performed By: #### 5 8410-2 ####[facility] LABORATORYCLIA [id number] [address] HEPATIC FUNCTION PNLon 06-10 Albumin [Mass/Vol] 3.1 g/dL Low 3.9-4.9 [facility] Comment on above: Order Comment: Speci men Type: BLOOD SPECIMEN Performed By: #### 2 777-1, 21437-9, 16501-1, HFP ####[facility]ORYCLIA [id number] [address] [facility] ALP [Catalytic activity/Vol] 73 U/L Normal 38-113 [facility] Comment on above: Order Comment: Speci men Type: BLOOD SPECIMEN Performed By: #### 2 777-1, 44303-6, , HFP ####[facility]ORATORYCLIA [id number] [address] ALT With P-5'-P [Catalytic activity/Vol] 64 U/L High 10-54 [facility] Comment on above: Order Comment: Speci men Type: BLOOD SPECIMEN Performed By: #### 2 777-1, 24068-8, , HFP ####[facility]ATORYCLIA [id number] [place], [place] [address] [place] [address] AST With P-5'-P [Catalytic activity/Vol] 44 U/L High 14-40 [facility] Comment on above: Order Comment: Speci men Type: BLOOD SPECIMEN Performed By: #### 2 777-1, 85885-5, , HFP ####[facility]ATORYCLIA [id number] [address] Bilirubin [Mass/Vol] 0.5 mg/dL Normal 0.2-1.3 [facility] Comment on above: Order Comment: Speci men Type: BLOOD SPECIMEN Performed By: #### 2 777-1, 93689-4, , HFP ####[facility]ORYCLIA [id number] [address] Bilirubin.conjugated [Mass/Vol] mg/dL Normal <0.2 [facility] Comment on above: Order Comment: Speci men Type: BLOOD SPECIMEN Performed By: #### 2 777-1, 48354-8, , HFP ####[facility]ORYCLIA [id number] [address] Protein [Mass/Vol] 5.7 g/dL Low 6.3-8.0 [facility] Comment on above: Order Comment: Speci men Type: BLOOD SPECIMEN Performed By: #### 2 777-1, 60237-4, , HFP ####[facility] LABORATORYCLIA [id number] [place] [address] [place] LEVETIRACETAMon 06-10-2021 levETIRAcetam [Mass/Vol] 57.7 ug/mL High 12.0-46.0 [facility] Comment on above: Order Comment: Speci [...] developed and its performance characteristics determined by [facility]'s Isrrael Perez [facility] [place] ([facility]). It has not been cleared or approved by the FDA. [facility] is regulated under CLIA as qualified to perform high complexity testing. This test is used for clinical purposes. It should not be regarded as investigational or for research. Performed By: #### L EVET ####[facility]FERENCE LABCLIA [id number] [id number] [address] [place] Magnesium SerPl-mCncon 06-10 Magnesium [Mass/Vol] 2.7 mg/dL High 1.7-2.3 [facility] Comment on above: Order Comment: Speci men Type: BLOOD SPECIMEN Performed By: #### 2 777-1, 03299-2, , [facility] ####[facility] LABORATORYCLIA [id number] [place] [address] [place] Phosphate SerPl-mCncon 06-10 Phosphate [Mass/Vol] 1.8 mg/dL Low 2.7-4.8 [facility] Comment on above: Order Comment: Speci men Type: BLOOD SPECIMEN Performed By: #### 2 777-1, 50029-5, , [facility] ####[facility] LABORATORYCLIA [id number] [place] [address] [place] ALLIED HEALTHon 06-09-2021 ALLIED HEALTH Normal [facility] ALLIED HEALTH Normal [facility] ALLIED HEALTH Normal [facility] ALLIED HEALTH Normal [facility] Basic metabolic 2000 panelon 06-09-2021 Anion gap [Moles/Vol] 8 mmol/L Low 9-18 [facility] Comment on above: Order Comment: Speci men Type: BLOOD SPECIMEN Performed By: #### 2 4321-2, 2776-05, ####[facility] LABORATORYCLIA [id number] [place] [address] [place] Calcium [Mass/Vol] 8.3 mg/dL Low 8.5-10.2 [facility] Comment on above: Order Comment: Speci men Type: BLOOD SPECIMEN Performed By: #### 2 4321-2, 2776-05, ####[facility] LABORATORYCLIA [id number] [place] [address] [place] Chloride [Moles/Vol] 116 mmol/L High 97-105 [facility] Comment on above: Order Comment: Speci men Type: BLOOD SPECIMEN Performed By: #### 2 4321-2, 2776-05, ####[facility] LABORATORYCLIA [id number] [place] [address] [place] CO2 [Moles/Vol] 27 mmol/L Normal 22-30 [facility] Comment on above: Order Comment: Speci men Type: BLOOD SPECIMEN Performed By: #### 2 4321-2, 2776-05, ####[facility] LABORATORYCLIA [id number] [place] [address] [place] Creatinine [Mass/Vol] 0.70 mg/dL Low 0.73-1.22 [facility] Comment on above: Order Comment: Speci men Type: BLOOD SPECIMEN Performed By: #### 2 4321-2, 2776-05, ####[facility]ATORYCLIA [id number] [address] [place] GFR/1.73 sq M.predicted MDRD (S/P/Bld) [Vol rate/Area] mL/min/{1.73_m2} Normal [facility] Comment on above: Order Comment: Speci [...] GFR. Performed By: #### 2 4321-2, 2777-, 52605-1 ####[facility] LABORATORYCLIA [id number] [place] [address] [place] Glucose [Mass/Vol] 123 mg/dL High 74-99 [facility] Comment on above: Order Comment: Speci men Type: BLOOD SPECIMEN Result Comment: The [place] Diabetes Association (ADA) provides guidance for cutoff [...] Standards of Medical Care in Diabetes 2016, [place] Diabetes [employer]. Diabetes Care. 2016.39(Suppl 1). Performed By: #### 2 4321-2, 2777-, 33689-2 ####[facility] LABORATORYCLIA [id number] [place] [address] [place] Potassium [Moles/Vol] 3.5 mmol/L Low 3.7-5.1 [facility] Comment on above: Order Comment: Speci men Type: BLOOD SPECIMEN Performed By: #### 2 4321-2, 7-1, ####[facility] LABORATORYCLIA [id number] [place], [place] [address] [place] [address] Sodium [Moles/Vol] 151 mmol/L High 136-144 [facility] Comment on above: Order Comment: Speci men Type: BLOOD SPECIMEN Performed By: #### 2 4321-2, 2776-, ####[facility] LABORATORYCLIA [id number] [address] Urea nitrogen [Mass/Vol] 39 mg/dL High 9-24 [facility] Comment on above: Order Comment: Speci men Type: BLOOD SPECIMEN Performed By: #### 2 4321-2, 2776-05, ####[facility]ATORYCLIA [id number] [address] CBC panel Auto (Bld)on 06-09 Erythrocyte distribution width (RBC) [Ratio] 16.2 % High 11.5-15.0 [facility] Comment on above: Order Comment: Speci men Type: BLOOD SPECIMEN Performed By: #### 5 8410-2 ####[facility] LABORATORYCLIA [id number] [address] Hematocrit (Bld) [Volume fraction] 33.7 % Low 39.0-51.0 [facility] Comment on above: Order Comment: Speci men Type: BLOOD SPECIMEN Performed By: #### 5 8410-2 ####[facility] LABORATORYCLIA [id number] [address] Hemoglobin (Bld) [Mass/Vol] 10.2 g/dL Low 13.0-17.0 [facility] Comment on above: Order Comment: Speci men Type: BLOOD SPECIMEN Performed By: #### 5 8410-2 ####[facility]ORATORYCLIA [id number] [address] AMARILIS MCH (RBC) [Entitic mass] 27.4 pg Normal 26.0-34.0 [facility] Comment on above: Order Comment: Speci men Type: BLOOD SPECIMEN Performed By: #### 5 8410-2 ####[facility] [facility]ATORYCLIA [id number] [address] MCHC (RBC) [Mass/Vol] 30.3 g/dL Low 30.5-36.0 [facility] Comment on above: Order Comment: Speci men Type: BLOOD SPECIMEN Performed By: #### 5 8410-2 ####[facility] LABORATORYCLIA [id number] [address] MCV (RBC) [Entitic vol] 90.6 fL Normal 80.0-100.0 [facility] Comment on above: Order Comment: Speci men Type: BLOOD SPECIMEN Performed By: #### 5 8410-2 ####[facility] LABORATORYCLIA [id number] [address] Nucleated RBC (Bld) [#/Vol] 10*3/uL Normal <0.01 [facility] Comment on above: Order Comment: Speci men Type: BLOOD SPECIMEN Performed By: #### 5 8410-2 ####[facility] LABORATORYCLIA [id number] [address] Platelet mean volume (Bld) [Entitic vol] 10.3 fL Normal 9.0-12.7 [facility] Comment on above: Order Comment: Speci men Type: BLOOD SPECIMEN Performed By: #### 5 8410-2 ####[facility] LABORATORYCLIA [id number] [address] Platelets (Bld) [#/Vol] 219 10*3/uL Normal 150-400 [facility] Comment on above: Order Comment: Speci men Type: BLOOD SPECIMEN Performed By: #### 5 8410-2 ####[facility] LABORATORYCLIA [id number] [address] RBC (Bld) [#/Vol] 3.72 10*6/uL Low 4.20-6.00 [facility] Comment on above: Order Comment: Speci men Type: BLOOD SPECIMEN Performed By: #### 5 8410-2 ####[facility]ORYCLIA [id number] [address] WBC (Bld) [#/Vol] 13.02 10*3/uL High 3.70-11.00 [facility] Comment on above: Order Comment: Speci men Type: BLOOD SPECIMEN Performed By: #### 5 8410-2 ####[facility] LABORATORYCLIA [id number] [address] CONSULT PROGon 06-09-2021 CONSULT PROG Normal [facility] CONSULT PROG Normal [facility] CT BRAIN WO IVCONon 06-09-[address] BRAIN WO IVCON Normal [facility] Magnesium SerPl-mCncon 06-09 Magnesium [Mass/Vol] 2.8 mg/dL High 1.7-2.3 [facility] Comment on above: Order Comment: Speci men Type: BLOOD SPECIMEN Performed By: #### 2 4321-2, 2776-05, ####[facility] LABORATORYCLIA [id number] [address] NURSING PROGon 06-09-2021 NURSING PROG Normal [facility] NUTRITIONon 06-09-2021 NUTRITION Normal [facility] PT EDon 06-09-2021 PT ED Normal [facility] Phosphate SerPl-mCncon 06-09 Phosphate [Mass/Vol] 2.2 mg/dL Low 2.7-4.8 [facility] Comment on above: Order Comment: Speci men Type: BLOOD SPECIMEN Performed By: #### 2 4321-2, 2777-1, ####[facility]ATORYCLIA [id number] [address] Vancomycin random [Mass/Vol] on 06-09-2021 Vancomycin [Mass/Vol] 18.9 ug/mL Normal 10.0-20.0 [facility] Comment on above: Order Comment: Speci men Type: BLOOD SPECIMEN Result Comment: Refe rence ranges and high/low indicator flags are provided as general guidelines only. The treating physician must determine appropriate target levels/dosing based on the specific clinical situation. Performed By: #### 4 091-5 ####[facility] LABORATORYCLIA [id number] [address] [facility] XR ABD 2V SUPINE W UPR/DECUB /CTLon 06-09-2021 XR ABD 2V SUPINE W UPR/DECUB/CTL Normal [facility] XR CHEST 1V FRONTALon 2021 XR CHEST 1V FRONTAL Normal [facility] XR NECK SOFT TISSUE 2V AP/LA Ton 06-09-2021 XR NECK SOFT TISSUE 2V AP/LAT Normal [facility] XR SKULL 2V AP/LATon 022 XR SKULL 2V AP/LAT Normal [facility] ALLIED HEALTHon 06-08-2021 ALLIED HEALTH Normal [facility] ANES POSTPROC EVALon 022 ANES POSTPROC EVAL Normal [facility] ANES PRE-OPon 06-08-2021 ANES PRE-OP Normal [facility] BRIEF OP NOTon 06-08-2021 BRIEF OP NOT Normal [facility] Bacteria Spec Anaerobe Culto n 06-08-2021 Bacteria identified Anaer cx Nom (Unsp spec) ORGANISM ID: 1 Rare Staphylococcus saccharolyticus Identification performed by [facility] See scanned document for susceptibility report Normal [facility] Comment on above: Performed By: #### 6 462-6 635-3 ####[facility] LABORATORYCLIA [id number] [address] Bacteria Wnd Culton 06-08-19 22 Bacteria identified Cx Nom (Wound) CULTURE, INTRAOPERATIVE HARDWARE: No growth 5 days GRAM STAIN: Not performed on specimen type Normal [facility] Comment on above: Performed By: #### 6 462-6 635-3 ####[facility]ELCLIA [id number] [place], [place] [address] [place] [address] [place] Basic metabolic 2000 panelon 06-08-2021 Anion gap [Moles/Vol] 9 mmol/L Normal 9-18 [facility] Comment on above: Order Comment: Speci men Type: BLOOD SPECIMEN Performed By: #### 2 4321-2, 7-1, ####[facility]ORYCLIA [id number] [place] [address] [facility] Calcium [Mass/Vol] 8.7 mg/dL Normal 8.5-10.2 [facility] Comment on above: Order Comment: Speci men Type: BLOOD SPECIMEN Performed By: #### 2 4321-2, 2776-05, ####[facility]ORYCLIA [id number] [place], [place] [address] [place] [address] [place] Chloride [Moles/Vol] 113 mmol/L High 97-105 [facility] Comment on above: Order Comment: Speci men Type: BLOOD SPECIMEN Performed By: #### 2 4321-2, 2776-05, ####[facility]ORYCLIA [id number] [place], [place] [address] [place] [address] [facility] CO2 [Moles/Vol] 26 mmol/L Normal 22-30 [facility] Comment on above: Order Comment: Speci men Type: BLOOD SPECIMEN Performed By: #### 2 4321-2, 2776-05, ####[facility]ORYCLIA [id number] [place], [place] [address] [place] [address] [place] Creatinine [Mass/Vol] 0.68 mg/dL Low 0.73-1.22 [facility] Comment on above: Order Comment: Speci men Type: BLOOD SPECIMEN Performed By: #### 2 4321-2, 2776-, ####[facility]ORYCLIA [id number] [place] [address] [place] GFR/1.73 sq M.predicted MDRD (S/P/Bld) [Vol rate/Area] mL/min/{1.73_m2} Normal [facility] Comment on above: Order Comment: Speci [...] Performed By: #### 2 4321-2, 2777-, ####[facility] CARMELCLIA [id number] [place] [address] [place] Glucose [Mass/Vol] 146 mg/dL High 74-99 [facility] Comment on above: Order Comment: Speci men Type: BLOOD SPECIMEN Result Comment: The [place] Diabetes Association (ADA) provides guidance for cutoff [...] Standards of Medical Care in Diabetes 2016, [place] Diabetes Association. Diabetes Care. 2016.39(Suppl 1). Performed By: #### 2 4321-2, 2777-, ####[facility] LABORATORYCLIA [id number] [place] [address] [place] Potassium [Moles/Vol] 3.6 mmol/L Low 3.7-5.1 [facility] Comment on above: Order Comment: Speci men Type: BLOOD SPECIMEN Performed By: #### 2 4321-2, 2776-, ####[facility]ATORYCLIA [id number] [place], [place] [address] [place] [address] STATES [facility] Sodium [Moles/Vol] 148 mmol/L High 136-144 [facility] Comment on above: Order Comment: Speci men Type: BLOOD SPECIMEN Performed By: #### 2 4321-2, 2776-, ####[facility]ORYCLIA [id number] [address] STATES [facility] Urea nitrogen [Mass/Vol] 36 mg/dL High 9-24 [facility] Comment on above: Order Comment: Speci men Type: BLOOD SPECIMEN Performed By: #### 2 4321-2, 2776-05, ####[facility]ORATORYCLIA [id number] [address] CASE MANAGEMon 06-08-2021 CASE MANAGEM Normal [facility] CBC panel Auto (Bld)on 06-08 Erythrocyte distribution width (RBC) [Ratio] 16.0 % High 11.5-15.0 [facility] Comment on above: Order Comment: Speci men Type: BLOOD SPECIMEN Performed By: #### 5 8410-2 ####[facility] LABORATORYCLIA [id number] [address] Hematocrit (Bld) [Volume fraction] 38.4 % Low 39.0-51.0 [facility] Comment on above: Order Comment: Speci men Type: BLOOD SPECIMEN Performed By: #### 5 8410-2 ####[facility] LABORATORYCLIA [id number] [address] STATES OF [facility] Hemoglobin (Bld) [Mass/Vol] 12.1 g/dL Low 13.0-17.0 [facility] Comment on above: Order Comment: Speci men Type: BLOOD SPECIMEN Performed By: #### 5 8410-2 ####[facility]ORYCLIA [id number] [address] STATES [facility] MCH (RBC) [Entitic mass] 28.3 pg Normal 26.0-34.0 [facility] Comment on above: Order Comment: Speci men Type: BLOOD SPECIMEN Performed By: #### 5 8410-2 ####[facility] LABORATORYCLIA [id number] [address] MCHC (RBC) [Mass/Vol] 31.5 g/dL Normal 30.5-36.0 [facility] Comment on above: Order Comment: Speci men Type: BLOOD SPECIMEN Performed By: #### 5 8410-2 ####[facility] LABORATORYCLIA [id number] [address] MCV (RBC) [Entitic vol] 89.9 fL Normal 80.0-100.0 [facility] Comment on above: Order Comment: Speci men Type: BLOOD SPECIMEN Performed By: #### 5 8410-2 ####[facility] LABORATORYCLIA [id number] [address] Nucleated RBC (Bld) [#/Vol] 10*3/uL Normal <0.01 [facility] Comment on above: Order Comment: Speci men Type: BLOOD SPECIMEN Performed By: #### 5 8410-2 ####[facility]ORATORYCLIA [id number] [address] Platelet mean volume (Bld) [Entitic vol] 10.3 fL Normal 9.0-12.7 [facility] Comment on above: Order Comment: Speci men Type: BLOOD SPECIMEN Performed By: #### 5 8410-2 ####[facility]ORATORYCLIA [id number] [address] Platelets (Bld) [#/Vol] 236 10*3/uL Normal 150-400 [facility] Comment on above: Order Comment: Speci men Type: BLOOD SPECIMEN Performed By: #### 5 8410-2 ####[facility]ORATORYCLIA [id number] [address] RBC (Bld) [#/Vol] 4.27 10*6/uL Normal 4.20-6.00 [facility] Comment on above: Order Comment: Speci men Type: BLOOD SPECIMEN Performed By: #### 5 8410-2 ####[facility]ATORYCLIA [id number] [address] WBC (Bld) [#/Vol] 11.06 10*3/uL High 3.70-11.00 [facility] Comment on above: Order Comment: Speci men Type: BLOOD SPECIMEN Performed By: #### 5 8410-2 ####[facility]ORATORYCLIA [id number] [address] CONSULT PROGon 06-08-2021 CONSULT PROG [facility] CT BRAIN WO IVCONon 06-08-19 CT BRAIN WO IVCON [facility] Magnesium SerPl-mCncon 06-08 Magnesium [Mass/Vol] 2.8 mg/dL High 1.7-2.3 [facility] Comment on above: Order Comment: Speci men Type: BLOOD SPECIMEN Performed By: #### 2 4321-2, 2777-1, 97260-6 ####[facility] LABORATORYCLIA [id number] [address] Microorganism Spec Culton Microorganism identified Cx Nom (Unsp spec) CULTURE, FUNGAL: No Fungus isolated after 28 days FUNGAL SMEAR: No fungus seen [facility] Comment on above: Performed By: #### 1 1475-1 ####[facility] LABORATORYCLIA [id number] [address] NURSING PROGon 06-08-2021 NURSING PROG [facility] OPERATIVE NOon 06-08-2021 OPERATIVE NO Normal [facility] OPERATIVE NO [facility] PT panel Coag (PPP)on 2021 INR Coag (PPP) [Relative time] 1.1 {INR} Normal 0.9-1.3 [facility] Comment on above: Order Comment: Speci men Type: BLOOD SPECIMEN Result Comment: Yris min K Antagonist (VKA) Therapeutic Range: INR 2 to 3 (Target INR of 2.5)Note: For patients treated with VKA drugs, such as warfarin, the [place] [employer] 2012 Guideline recommends [...] al. Chest 2012, 141:7S-47SAlba RA, et al. [facility] 2017, 70: 252-289 Performed By: #### 3 4528-0, 90766-4 ####[facility] LABORATORYCLIA [id number] [address] STATES OF [facility] PT Coag (PPP) [Time] 11.9 s Normal 9.7-13.0 [facility] Comment on above: Order Comment: Speci men Type: BLOOD SPECIMEN Performed By: #### 3 4528-0, 80543-7 ####[facility] LABORATORYCLIA [id number] [place] [address] [place] Phosphate SerPl-mCncon 06-08 Phosphate [Mass/Vol] 2.3 mg/dL Low 2.7-4.8 [facility] Comment on above: Order Comment: Speci men Type: BLOOD SPECIMEN Performed By: #### 2 4321-2, 2777-1, 28513-2 ####[facility] LABORATORYCLIA [id number] [address] [place] aPTT PPPon 06-08-2021 aPTT Coag (PPP) [Time] 24.2 s Normal 23.0-32.4 [facility] Comment on above: Order Comment: Speci men Type: BLOOD SPECIMEN Performed By: #### 3 4528-0, 73782-0 ####[facility]ORATORYCLIA [id number] [address] ALLIED HEALTHon 06-07-2021 ALLIED HEALTH Normal [facility] ALLIED HEALTH Normal [facility] ALLIED HEALTH Normal [facility] Bacteria CSF Culton 06-07-19 22 Bacteria identified Cx Nom (CSF) CULTURE, CSF: No growth 14 days GRAM STAIN: No organisms seen Rare Mononuclear cells Rare Polymorphonuclear leukocytes Gram stain performed on cytospun specimen. Normal [facility] Comment on above: Performed By: #### 6 06-4 ####[facility]ORATORYCLIA [id number] [address] Basic metabolic 2000 panelon 06-07-2021 Anion gap [Moles/Vol] 9 mmol/L Normal 9-18 [facility] Comment on above: Order Comment: Speci men Type: BLOOD SPECIMEN Performed By: #### 1 9123-9, 2777-1, 60927-7 ####[facility] LABORATORYCLIA [id number] [place] [address] [place] Calcium [Mass/Vol] 8.8 mg/dL Normal 8.5-10.2 [facility] Comment on above: Order Comment: Speci men Type: BLOOD SPECIMEN Performed By: #### 1 9123-9, 2777-1, 27331-1 ####[facility] LABORATORYCLIA [id number] [place] [address] [place] Chloride [Moles/Vol] 111 mmol/L High 97-105 [facility] Comment on above: Order Comment: Speci men Type: BLOOD SPECIMEN Performed By: #### 1 9123-9, 2777-1, 13810-2 ####[facility]ORYCLIA [id number] [place] [address] [place] CO2 [Moles/Vol] 27 mmol/L Normal 22-30 [facility] Comment on above: Order Comment: Speci men Type: BLOOD SPECIMEN Performed By: #### 1 9123-9, 2777-1, 17682-4 ####[facility]ORATORYCLIA [id number] [address] STATES OF [facility] Creatinine [Mass/Vol] 0.66 mg/dL Low 0.73-1.22 [facility] Comment on above: Order Comment: Speci men Type: BLOOD SPECIMEN Performed By: #### 1 9123-9, 2777-1, 49669-7 ####[facility]CL[facility] [id number] [address] [place] GFR/1.73 sq M.predicted MDRD (S/P/Bld) [Vol rate/Area] mL/min/{1.73_m2} Normal [facility] Comment on above: Order Comment: Speci [...] GFR. Performed By: #### 1 9123-9, 2777-1, 65955-1 ####[facility] LABORATORYCLIA [id number] [address] [place] Glucose [Mass/Vol] 123 mg/dL High 74-99 [facility] Comment on above: Order Comment: [facility] Type: BLOOD SPECIMEN Result Comment: The [place] Diabetes Association (ADA) provides guidance for cutoff [...] Standards of Medical Care in Diabetes 2016, [place] Diabetes [employer]. Diabetes Care. 2016.39(Suppl 1). Performed By: #### 1 9123-9, 2777-1, 93407-6 ####[facility]ORATORYCLIA [id number] [address] Potassium [Moles/Vol] 3.6 mmol/L Low 3.7-5.1 [facility] Comment on above: Order Comment: Speci men Type: BLOOD SPECIMEN Performed By: #### 1 9123-9, 277-, 81375-8 ####[facility]ORATORYCLIA [id number] [address] Sodium [Moles/Vol] 147 mmol/L High 136-144 [facility] Comment on above: Order Comment: Speci men Type: BLOOD SPECIMEN Performed By: #### 1 9123-9, 2777-1, 47122-7 ####[facility]ORATORYCLIA [id number] [address] Urea nitrogen [Mass/Vol] 30 mg/dL High 9-24 [facility] Comment on above: Order Comment: Speci men Type: BLOOD SPECIMEN Performed By: #### 1 9123-9, 2777-1, 89191-1 ####[facility]ATORYCLIA [id number] [address] CBC W Auto Differential pane l (Bld)on 06-07-2021 Basophils (Bld) [#/Vol] 10*3/uL Normal <0.11 [facility] Comment on above: Order Comment: Speci men Type: BLOOD SPECIMEN Performed By: #### 5 7021-8 ####[facility]ORATORYCLIA [id number] [address] Basophils/100 WBC (Bld) 0.2 % Normal [facility] Comment on above: Order Comment: Speci men Type: BLOOD SPECIMEN Performed By: #### 5 7021-8 ####[facility]ORYCLIA [id number] [address] Differential cell count method Nom (Bld) Auto Normal [facility] Comment on above: Order Comment: Speci men Type: BLOOD SPECIMEN Performed By: #### 5 7021-8 ####[facility]ORYCLIA [id number] [address] Eosinophils (Bld) [#/Vol] 0.06 10*3/uL Normal <0.46 [facility] Comment on above: Order Comment: Speci men Type: BLOOD SPECIMEN Performed By: #### 5 7021-8 ####[facility]ORYCLIA [id number] [address] Eosinophils/100 WBC (Bld) 0.6 % Normal [facility] Comment on above: Order Comment: Speci men Type: BLOOD SPECIMEN Performed By: #### 5 7021-8 ####[facility]ORATORYCLIA [id number] [address] Erythrocyte distribution width (RBC) [Ratio] 15.8 % High 11.5-15.0 [facility] Comment on above: Order Comment: Speci men Type: BLOOD SPECIMEN Performed By: #### 5 7021-8 ####[facility]ORYCLIA [id number] [address] Hematocrit (Bld) [Volume fraction] 40.4 % Normal 39.0-51.0 [facility] Comment on above: Order Comment: Speci men Type: BLOOD SPECIMEN Performed By: #### 5 7021-8 ####[facility]ORYCLIA [id number] [address] Hemoglobin (Bld) [Mass/Vol] 12.4 g/dL Low 13.0-17.0 [facility] Comment on above: Order Comment: Speci men Type: BLOOD SPECIMEN Performed By: #### 5 7021-8 ####[facility]ORYCLIA [id number] [address] IMMATURE GRAN % 0.7 % Normal [facility] Comment on above: Order Comment: Speci men Type: BLOOD SPECIMEN Performed By: #### 5 7021-8 ####[facility]ATORYCLIA [id number] [address] IMMATURE GRAN ABS 0.07 k/uL Normal <0.10 [facility] Comment on above: Order Comment: Speci men Type: BLOOD SPECIMEN Performed By: #### 5 7021-8 ####[facility]ORATORYCLIA [id number] [address] Lymphocytes (Bld) [#/Vol] 1.43 10*3/uL Normal 1.00-4.00 [facility] Comment on above: Order Comment: Speci men Type: BLOOD SPECIMEN Performed By: #### 5 7021-8 ####[facility]ORATORYCLIA [id number] [address] Lymphocytes/100 WBC (Bld) 14.1 % Normal [facility] Comment on above: Order Comment: Speci men Type: BLOOD SPECIMEN Performed By: #### 5 7021-8 ####[facility]ATORYCLIA [id number] [address] MCH (RBC) [Entitic mass] 27.6 pg Normal 26.0-34.0 [facility] Comment on above: Order Comment: Speci men Type: BLOOD SPECIMEN Performed By: #### 5 7021-8 ####[facility]ORYCLIA [id number] [address] MCHC (RBC) [Mass/Vol] 30.7 g/dL Normal 30.5-36.0 [facility] Comment on above: Order Comment: Speci men Type: BLOOD SPECIMEN Performed By: #### 5 7021-8 ####[facility]ORATORYCLIA [id number] [address] MCV (RBC) [Entitic vol] 89.8 fL Normal 80.0-100.0 [facility] Comment on above: Order Comment: Speci men Type: BLOOD SPECIMEN Performed By: #### 5 7021-8 ####[facility]ORATORYCLIA [id number] [place] [address] [place] Monocytes (Bld) [#/Vol] 0.82 10*3/uL Normal <0.87 [facility] Comment on above: Order Comment: Speci men Type: BLOOD SPECIMEN Performed By: #### 5 7021-8 ####[facility]ORYCLIA [id number] [address] [place] Monocytes/100 WBC (Bld) 8.1 % Normal [facility] Comment on above: Order Comment: Speci men Type: BLOOD SPECIMEN Performed By: #### 5 7021-8 ####[facility]ORATORYCLIA [id number] [place] [address] [place] Neutrophils (Bld) [#/Vol] 7.74 10*3/uL High 1.45-7.50 [facility] Comment on above: Order Comment: Speci men Type: BLOOD SPECIMEN Performed By: #### 5 7021-8 ####[facility]ORATORYCLIA [id number] [address] [place] Neutrophils/100 WBC (Bld) 76.3 % Normal [facility] Comment on above: Order Comment: Speci men Type: BLOOD SPECIMEN Performed By: #### 5 7021-8 ####[facility]ORYCLIA [id number] [place] [address] [place] Nucleated RBC (Bld) [#/Vol] 10*3/uL Normal <0.01 [facility] Comment on above: Order Comment: Speci men Type: BLOOD SPECIMEN Performed By: #### 5 7021-8 ####[facility]ORYCLIA [id number] [place] [address] [place] Nucleated RBC/100 WBC (Bld) [Ratio] 0.0 /100 WBC Normal 0.0 [facility] Comment on above: Order Comment: Speci men Type: BLOOD SPECIMEN Performed By: #### 5 7021-8 ####[facility]ORATORYCLIA [id number] [address] Platelet mean volume (Bld) [Entitic vol] 10.4 fL Normal 9.0-12.7 [facility] Comment on above: Order Comment: Speci men Type: BLOOD SPECIMEN Performed By: #### 5 7021-8 ####[facility]ORATORYCLIA [id number] [address] Platelets (Bld) [#/Vol] 236 10*3/uL Normal 150-400 [facility] Comment on above: Order Comment: Speci men Type: BLOOD SPECIMEN Performed By: #### 5 7021-8 ####[facility]ORATORYCLIA [id number] [address] RBC (Bld) [#/Vol] 4.50 10*6/uL Normal 4.20-6.00 [facility] Comment on above: Order Comment: Speci men Type: BLOOD SPECIMEN Performed By: #### 5 7021-8 ####[facility]ATORYCLIA [id number] [address] WBC (Bld) [#/Vol] 10.14 10*3/uL Normal 3.70-11.00 [facility] Comment on above: Order Comment: Speci men Type: BLOOD SPECIMEN Performed By: #### 5 7021-8 ####[facility]ORATORYCLIA [id number] [address] CBC panel Auto (Bld)on 06-07 Erythrocyte distribution width (RBC) [Ratio] 15.8 % High 11.5-15.0 [facility] Comment on above: Order Comment: Speci men Type: BLOOD SPECIMEN Performed By: #### 5 8410-2 ####[facility]ORATORYCLIA [id number] [address] Hematocrit (Bld) [Volume fraction] 40.0 % Normal 39.0-51.0 [facility] Comment on above: Order Comment: Speci men Type: BLOOD SPECIMEN Performed By: #### 5 8410-2 ####[facility] LABORATORYCLIA [id number] [address] Hemoglobin (Bld) [Mass/Vol] 12.3 g/dL Low 13.0-17.0 [facility] Comment on above: Order Comment: Speci men Type: BLOOD SPECIMEN Performed By: #### 5 8410-2 ####[facility] LABORATORYCLIA [id number] [address] MCH (RBC) [Entitic mass] 27.3 pg Normal 26.0-34.0 [facility] Comment on above: Order Comment: Speci men Type: BLOOD SPECIMEN Performed By: #### 5 8410-2 ####[facility] LABORATORYCLIA [id number] [address] MCHC (RBC) [Mass/Vol] 30.8 g/dL Normal 30.5-36.0 [facility] Comment on above: Order Comment: Speci men Type: BLOOD SPECIMEN Performed By: #### 5 8410-2 ####[facility] LABORATORYCLIA [id number] [address] MCV (RBC) [Entitic vol] 88.7 fL Normal 80.0-100.0 [facility] Comment on above: Order Comment: Speci men Type: BLOOD SPECIMEN Performed By: #### 5 8410-2 ####[facility] LABORATORYCLIA [id number] [address] Nucleated RBC (Bld) [#/Vol] 10*3/uL Normal <0.01 [facility] Comment on above: Order Comment: Speci men Type: BLOOD SPECIMEN Performed By: #### 5 8410-2 ####[facility] LABORATORYCLIA [id number] [place] [address] [place] Platelet mean volume (Bld) [Entitic vol] 10.0 fL Normal 9.0-12.7 [facility] Comment on above: Order Comment: Speci men Type: BLOOD SPECIMEN Performed By: #### 5 8410-2 ####[facility] LABORATORYCLIA [id number] [address] STATES OF [facility] Platelets (Bld) [#/Vol] 234 10*3/uL Normal 150-400 [facility] Comment on above: Order Comment: Speci men Type: BLOOD SPECIMEN Performed By: #### 5 8410-2 ####[facility] LABORATORYCLIA [id number] [address] [place] RBC (Bld) [#/Vol] 4.51 10*6/uL Normal 4.20-6.00 [facility] Comment on above: Order Comment: Speci men Type: BLOOD SPECIMEN Performed By: #### 5 8410-2 ####[facility] LABORATORYCLIA [id number] [address] WBC (Bld) [#/Vol] 11.47 10*3/uL High 3.70-11.00 [facility] Comment on above: Order Comment: Speci men Type: BLOOD SPECIMEN Performed By: #### 5 8410-2 ####[facility] LABORATORYCLIA [id number] [address] [facility] CONSULT PROGon 06-07-2021 CONSULT PROG Normal [facility] CONSULT PROG Normal [facility] CSF MANUAL DIFFon 06-07-2021 DIF TTL, CSF 92 cells counted Normal [facility] Comment on above: Order Comment: Speci men Type: CEREBROSPINAL FLUID Performed By: #### 3 4563-7, [id number], [id number] ####[facility] LABORATORYCLIA [id number] [address] [place] EOSIN%, CSF 1 % Normal [facility] Comment on above: Order Comment: Speci men Type: CEREBROSPINAL FLUID Performed By: #### 3 4563-7, [id number], [id number] ####[facility]ORATORYCLIA [id number] [place], [place] [address] [place] [address] [place] LYMPH%, CSF 21 % Low 50-90 [facility] Comment on above: Order Comment: Speci men Type: CEREBROSPINAL FLUID Performed By: #### 3 4563-7, [id number], [id number] ####[facility] LABORATORYCLIA [id number] [place], [place] [address] [place] [address] [place] MACRO%, CSF 27 % High <1 [facility] Comment on above: Order Comment: Speci men Type: CEREBROSPINAL FLUID Result Comment: Tati ected result: Previously reported as 22 % on 06/07/2021 at 1:49 PM EST. Performed By: #### 3 4563-7, [id number], [id number] ####[facility]ORATORYCLIA [id number] [place], [place] [address] [place] [address] [place] MONO%, CSF 36 % Normal 10-50 [facility] Comment on above: Order Comment: Speci men Type: CEREBROSPINAL FLUID Performed By: #### 3 4563-7, [id number], [id number] ####[facility]ORATORYCLIA [id number] [address] [place] NEUT%, CSF 11 % High 0-3 [facility] Comment on above: Order Comment: Speci men Type: CEREBROSPINAL FLUID Performed By: #### 3 4563-7, [id number], [id number] ####[facility]ORATORYCLIA [id number] [address] [place] OTHER CL%, CSF 4 % Normal [facility] Comment on above: Order Comment: Speci men Type: CEREBROSPINAL FLUID Result Comment: Path review to follow.Corrected result: Previously reported as 10 % on 06/07/2021 at 1:49 PM EST. Performed By: #### 3 4563-7, [id number], [id number] ####[facility]ORATORYCLIA [id number] [place], [place] [address] [place] [address] CSF PATHOLOGIST INTERP (LAB REFLEX ORDER-NO BILL)on 06-07-2021 CSF STAFF REVIEW Negative for maligna nt cells. Rare immature myeloid or ventricular lining cells. Normal [facility] Comment on above: Order Comment: Speci men Type: CEREBROSPINAL FLUID Performed By: #### 3 4563-7, [id number], [id number] ####[facility]ORATORYCLIA [id number] [address] Pathologist name Reviewed by Eloise rebolledo MD Normal [facility] Comment on above: Order Comment: Speci men Type: CEREBROSPINAL FLUID Performed By: #### 3 4563-7, [id number], YPA0409 ####[facility]ORATORYCLIA [id number] [address] BRAIN WO IVCONon 06-07-19 CT BRAIN WO IVCON Normal [facility] CT BRAIN WO IVCON Normal [facility] Cell count panel (CSF)on Clarity (CSF) Clear Normal Clear [facility] Comment on above: Order Comment: Speci men Type: CEREBROSPINAL FLUID Performed By: #### 3 4563-7, [id number], [id number] ####[facility]ORATORYCLIA [id number] [address] Clarity (Unsp spec) Not Indicated Normal Clear [facility] Comment on above: Order Comment: Speci men Type: CEREBROSPINAL FLUID Performed By: #### 3 4563-7, [id number], [id number] ####[facility]ORATORYCLIA [id number] [address] Color (CSF) Colorless Normal Colorless [facility] Comment on above: Order Comment: Speci men Type: CEREBROSPINAL FLUID Performed By: #### 3 4563-7, [id number], [id number] ####[facility] LABORATORYCLIA [id number] [address] Color (Spun CSF) Not Indicated Normal Colorless [facility] Comment on above: Order Comment: Speci men Type: CEREBROSPINAL FLUID Performed By: #### 3 4563-7, [id number], [id number] ####[facility] LABORATORYCLIA [id number] [address] CSF TUBE NUMBER [employer] Container Normal [facility] Comment on above: Order Comment: Speci men Type: CEREBROSPINAL FLUID Performed By: #### 3 4563-7, [id number], [id number] ####[facility] LABORATORYCLIA [id number] [address] RBC Manual cnt (CSF) [#/Vol] 42 cells/uL High 0-5 [facility] Comment on above: Order Comment: Speci men Type: CEREBROSPINAL FLUID Performed By: #### 3 4563-7, [id number], [id number] ####[facility] LABORATORYCLIA [id number] [address] WBC Manual cnt (CSF) [#/Vol] 1 cells/uL Normal 0-5 [facility] Comment on above: Order Comment: Speci men Type: CEREBROSPINAL FLUID Performed By: #### 3 4563-7, [id number], [id number] ####[facility] LABORATORYCLIA [id number] [address] Glucose CSF-ncon Glucose (CSF) [Mass/Vol] 92 mg/dL High 40-70 [facility] Comment on above: Order Comment: Speci men Type: CEREBROSPINAL FLUID Result Comment: Lumb ar CSF glucose values of healthy patients are approximately 60% of the plasma values and must always be compared with a concurrently measured plasma value for adequate clinical interpretation.References: 1. Glucose HK (GLUC3) [package insert V 12.0 American]. [employer], [place], [place]. September 2015. 2. Teresa HGarfield, Loki, H. (2015). Chapter 7: Glucose and Lactate. FGarfield Alcocer al.(eds.), Cerebrospinal Fluid in Clinical Neurology. [place]: [employer]. Performed By: #### 2 880-3, 2342-4 ####[facility] LABORATORYCLIA [id number] [address] Lactate (Bld) [Moles/Vol]on 06-07-2021 Lactate [Moles/Vol] 0.9 mmol/L Normal 0.5-2.2 [facility] Comment on above: Order Comment: Speci men Type: BLOOD SPECIMEN Performed By: #### 3 2693-4 ####[facility] LABORATORYCLIA [id number] [address] [place] OF [facility] Lipase SerPl-cCncon 06-07-19 22 Lipase [Catalytic activity/Vol] 35 U/L Normal 16-61 [facility] Comment on above: Order Comment: Speci men Type: BLOOD SPECIMEN Performed By: #### 3 040-3, PROCAL ####[facility] LABORATORYCLIA [id number] [address] Magnesium SerPl-mCncon 06-07 Magnesium [Mass/Vol] 2.7 mg/dL High 1.7-2.3 [facility] Comment on above: Order Comment: Speci men Type: BLOOD SPECIMEN Performed By: #### 1 9123-9, 2777-1, 19994-9 ####[facility] LABORATORYCLIA [id number] [address] PROCALCITONIN (LAB)on 2021 Procalcitonin [Mass/Vol] 0.13 ng/mL High <0.09 [facility] Comment on above: Order Comment: Speci men Type: BLOOD SPECIMEN Result Comment: For a guided interpretation of test results, please visit the Change in Procalcitonin Calculator, [email or web address]. Performed By: #### 3 040-3, PROCAL ####[facility] LABORATORYCLIA [id number] [address] [place] OF [facility] Phosphate SerPl-mCncon 06-07 Phosphate [Mass/Vol] 1.9 mg/dL Low 2.7-4.8 [facility] Comment on above: Order Comment: Speci men Type: BLOOD SPECIMEN Performed By: #### 1 9123-9, 2777-1, 21902-9 ####[facility]ORATORYCLIA [id number] [address] [place] Prot CSF-mCncon 06-07-2021 Protein (CSF) [Mass/Vol] 33 mg/dL Normal 15-45 [facility] Comment on above: Order Comment: Speci men Type: CEREBROSPINAL FLUID Performed By: #### 2 880-3, 2342-4 ####[facility] LABORATORYCLIA [id number] [address] [place] SARS-CoV-2 RNA Resp Ql MEGAN+p robeon 06-07-2021 SARS-CoV-2 (COVID-19) RNA MEGAN+probe Ql (Resp) COVID 19 RESULT: SARS-CoV-2 (Agent of COVID-19) Not Detected by PCR. This test has been authorized by FDA under an Emergency Use Authorization (EUA). Normal [facility] Comment on above: Performed By: #### 9 4500-6 ####[facility] LABORATORYCLIA [id number] [address] TYPE AND SCREENon 06-07-2021 ABO O Normal [facility] Comment on above: Order Comment: Speci men Type: BLOOD SPECIMEN Performed By: #### T SCR ####[facility] BLOOD BANKCLIA [id number] [address] HISTORICAL AB SCR STATUS Negative Normal [facility] Comment on above: Order Comment: Speci men Type: BLOOD SPECIMEN Performed By: #### T SCR ####[facility] BLOOD BANKCLIA [id number] [address] Rh Nom (Bld) Positive Normal [facility] Comment on above: Order Comment: Speci men Type: BLOOD SPECIMEN Performed By: #### T SCR ####[facility] BLOOD BANKCLIA [id number] [address] TYPE AND SCREEN EXPIRATION 06/10/2021 23:59 Normal [facility] Comment on above: Order Comment: Speci men Type: BLOOD SPECIMEN Performed By: #### T SCR ####[facility] BLOOD BANKCLIA [id number] [address] [facility] Vancomycin random [Mass/Vol] on 06-07-2021 Vancomycin [Mass/Vol] 16.5 ug/mL Normal 10.0-20.0 [facility] Comment on above: Order Comment: Speci men Type: BLOOD SPECIMEN Result Comment: Refe rence ranges and high/low indicator flags are provided as general guidelines only. The treating physician must determine appropriate target levels/dosing based on the specific clinical situation. Performed By: #### 4 091-5 ####[facility] LABORATORYCLIA [id number] [address] [facility] XR CHEST 1V FRONTAL PORTon 0 06-07-2021 XR CHEST 1V FRONTAL PORT Normal [facility] Basic metabolic 2000 panelon 06-06-2021 Anion gap [Moles/Vol] 11 mmol/L Normal 9-18 [facility] Comment on above: Order Comment: Speci men Type: BLOOD SPECIMEN Performed By: #### 2 4321-2, , 2776-05 ####[facility] LABORATORYCLIA [id number] [address] [place] OF [facility] Calcium [Mass/Vol] 8.6 mg/dL Normal 8.5-10.2 [facility] Comment on above: Order Comment: Speci men Type: BLOOD SPECIMEN Performed By: #### 2 4321-2, , 2776-05 ####[facility] LABORATORYCLIA [id number] [place] [address] [place] Chloride [Moles/Vol] 108 mmol/L High 97-105 [facility] Comment on above: Order Comment: Speci men Type: BLOOD SPECIMEN Performed By: #### 2 4321-2, , 2776-05 ####[facility] LABORATORYCLIA [id number] [place] [address] [place] CO2 [Moles/Vol] 25 mmol/L Normal 22-30 [facility] Comment on above: Order Comment: Speci men Type: BLOOD SPECIMEN Performed By: #### 2 4321-2, , 2776-05 ####[facility] LABORATORYCLIA [id number] [place] [address] [place] Creatinine [Mass/Vol] 0.76 mg/dL Normal 0.73-1.22 [facility] Comment on above: Order Comment: Speci men Type: BLOOD SPECIMEN Performed By: #### 2 4321-2, , 2776-05 ####[facility] LABORATORYCLIA [id number] [place] [address] [place] GFR/1.73 sq M.predicted MDRD (S/P/Bld) [Vol rate/Area] mL/min/{1.73_m2} Normal [facility] Comment on above: Order Comment: Speci [...] Performed By: #### 2 4321-2, , 2776-05 ####[facility] LABORATORYCLIA [id number] [address] [place] Glucose [Mass/Vol] 116 mg/dL High 74-99 [facility] Comment on above: Order Comment: Speci men Type: BLOOD SPECIMEN Result Comment: The [place] Diabetes Association (ADA) provides guidance for cutoff [...] Standards of Medical Care in Diabetes 2016, [place] Diabetes Association. Diabetes Care. 2016.39(Suppl 1). Performed By: #### 2 4321-2, , 2776-05 ####[facility] LABORATORYCLIA [id number] [address] Potassium [Moles/Vol] 3.5 mmol/L Low 3.7-5.1 [facility] Comment on above: Order Comment: Speci men Type: BLOOD SPECIMEN Performed By: #### 2 4321-2, , 2776-05 ####[facility] LABORATORYCLIA [id number] [address] Sodium [Moles/Vol] 144 mmol/L Normal 136-144 [facility] Comment on above: Order Comment: Speci men Type: BLOOD SPECIMEN Performed By: #### 2 4321-2, , 2776-05 ####[facility] LABORATORYCLIA [id number] [address] Urea nitrogen [Mass/Vol] 31 mg/dL High 9-24 [facility] Comment on above: Order Comment: Speci men Type: BLOOD SPECIMEN Performed By: #### 2 4321-2, , 2776-05 ####[facility] LABORATORYCLIA [id number] [address] CASE MANAGEMon 06-06-2021 CASE MANAGEM Normal [facility] CBC panel Auto (Bld)on 06-06 Erythrocyte distribution width (RBC) [Ratio] 15.8 % High 11.5-15.0 [facility] Comment on above: Order Comment: Speci men Type: BLOOD SPECIMEN Performed By: #### 5 8410-2 ####[facility] LABORATORYCLIA [id number] [address] Hematocrit (Bld) [Volume fraction] 39.5 % Normal 39.0-51.0 [facility] Comment on above: Order Comment: Speci men Type: BLOOD SPECIMEN Performed By: #### 5 8410-2 ####[facility] LABORATORYCLIA [id number] [address] Hemoglobin (Bld) [Mass/Vol] 12.2 g/dL Low 13.0-17.0 [facility] Comment on above: Order Comment: Speci men Type: BLOOD SPECIMEN Performed By: #### 5 8410-2 ####[facility] LABORATORYCLIA [id number] [address] MCH (RBC) [Entitic mass] 27.8 pg Normal 26.0-34.0 [facility] Comment on above: Order Comment: Speci men Type: BLOOD SPECIMEN Performed By: #### 5 8410-2 ####[facility] LABORATORYCLIA [id number] [address] MCHC (RBC) [Mass/Vol] 30.9 g/dL Normal 30.5-36.0 [facility] Comment on above: Order Comment: Speci men Type: BLOOD SPECIMEN Performed By: #### 5 8410-2 ####[facility] LABORATORYCLIA [id number] [address] MCV (RBC) [Entitic vol] 90.0 fL Normal 80.0-100.0 [facility] Comment on above: Order Comment: Speci men Type: BLOOD SPECIMEN Performed By: #### 5 8410-2 ####[facility] LABORATORYCLIA [id number] [address] Nucleated RBC (Bld) [#/Vol] 10*3/uL Normal <0.01 [facility] Comment on above: Order Comment: Speci men Type: BLOOD SPECIMEN Performed By: #### 5 8410-2 ####[facility] LABORATORYCLIA [id number] [address] Platelet mean volume (Bld) [Entitic vol] 10.4 fL Normal 9.0-12.7 [facility] Comment on above: Order Comment: Speci men Type: BLOOD SPECIMEN Performed By: #### 5 8410-2 ####[facility] LABORATORYCLIA [id number] [address] [facility] Platelets (Bld) [#/Vol] 236 10*3/uL Normal 150-400 [facility] Comment on above: Order Comment: Speci men Type: BLOOD SPECIMEN Performed By: #### 5 8410-2 ####[facility] LABORATORYCLIA [id number] [address] [facility] RBC (Bld) [#/Vol] 4.39 10*6/uL Normal 4.20-6.00 [facility] Comment on above: Order Comment: Speci men Type: BLOOD SPECIMEN Performed By: #### 5 8410-2 ####[facility] LABORATORYCLIA [id number] [address] WBC (Bld) [#/Vol] 9.74 10*3/uL Normal 3.70-11.00 [facility] Comment on above: Order Comment: Speci men Type: BLOOD SPECIMEN Performed By: #### 5 8410-2 ####[facility] LABORATORYCLIA [id number] [address] CONSULT PROGon 06-06-2021 CONSULT PROG Normal [facility] CONSULT PROG Normal [facility] Magnesium SerPl-mCncon 06-06 Magnesium [Mass/Vol] 2.5 mg/dL High 1.7-2.3 [facility] Comment on above: Order Comment: Speci men Type: BLOOD SPECIMEN Performed By: #### 2 4321-2, 10764-3, 2777-1 ####[facility] LABORATORYCLIA [id number] [address] [facility] PT panel Coag (PPP)on 2021 INR Coag (PPP) [Relative time] 1.0 {INR} Normal 0.9-1.3 [facility] Comment on above: Order Comment: Speci men Type: BLOOD SPECIMEN Result Comment: Yris min K Antagonist (VKA) Therapeutic Range: INR 2 to 3 (Target INR of 2.5)Note: For patients treated with VKA drugs, such as warfarin, the [place] College [employer] Chest Physicians 2012 Guideline recommends [...] of 3).Jeffy GH, et al. Chest 2012, 141:7S-47SNishimpatricia RA, et al. [facility] 2017, 70: 252-289 Performed By: #### 3 4528-0, 05951-0 ####[facility] LABORATORYCLIA [id number] [address] [place] PT Coag (PPP) [Time] 11.4 s Normal 9.7-13.0 [facility] Comment on above: Order Comment: Speci men Type: BLOOD SPECIMEN Performed By: #### 3 4528-0, 52244-6 ####[facility] LABORATORYCLIA [id number] [address] [place] Phosphate SerPl-mCncon 06-06 Phosphate [Mass/Vol] 2.3 mg/dL Low 2.7-4.8 [facility] Comment on above: Order Comment: Speci men Type: BLOOD SPECIMEN Performed By: #### 2 4321-2, 00421-0, 2777-1 ####[facility] LABORATORYCLIA [id number] [address] STATES [place] THROMBOGRAPH HEPARINASE PANE [place] 06-06-2021 Clot angle after addition of heparinase TEG (Bld) [Angle] 70.2 degrees Normal 47.0-74.0 [facility] Comment on above: Order Comment: Speci men Type: BLOOD SPECIMEN Performed By: #### T EGHPP ####[facility] LABORATORYCLIA [id number] [address] Clot Lysis 30 Min post maximum clot amplitude TEG (Bld) [Length fraction] 0.0 % Normal 0.0-8.0 [facility] Comment on above: Order Comment: Speci men Type: BLOOD SPECIMEN Performed By: #### T EGHPP ####[facility] LABORATORYCLIA [id number] [address] Clotting time after addition of heparinase TEG (Bld) 5.7 minutes Normal 4.0-10.0 [facility] Comment on above: Order Comment: Speci men Type: BLOOD SPECIMEN Performed By: #### T EGHPP ####[facility] LABORATORYCLIA [id number] [address] Coagulation index TEG Qn (Bld) 1.2 Normal -4.6-3.2 [facility] Comment on above: Order Comment: Speci men Type: BLOOD SPECIMEN Result Comment: The Coagulation Index, a secondary parameter, is labeled by the blood bank calendar control clerk as for "research use only" and is used per the blood bank calendar control clerk's instructions. Its performance characteristics were determined by [facility]'s Isrrael Perez [facility] Pathology and Laboratory Medicine [place] in a manner consistent with CLIA requirements. This test has not been cleared by the U.S. Food and Drug Administration. Performed By: #### T EGHPP ####[facility] LABORATORYCLIA [id number] [place] [address] [facility] Maximum clot firmness after addition of heparinase TEG (Bld) [Length] 64.0 mm Normal 51.0-75.0 [facility] Comment on above: Order Comment: Speci men Type: BLOOD SPECIMEN Performed By: #### T EGHPP ####[facility] LABORATORYCLIA [id number] [place] [id number] [facility] Vancomycin random [Mass/Vol] on 06-06-2021 Vancomycin [Mass/Vol] 17.4 ug/mL Normal 10.0-20.0 [facility] Comment on above: Order Comment: Speci men Type: BLOOD SPECIMEN Result Comment: Refe rence ranges and high/low indicator flags are provided as general guidelines only. The treating physician must determine appropriate target levels/dosing based on the specific clinical situation. Performed By: #### 4 091-5 ####[facility] LABORATORYCLIA [id number] [address] Vancomycin [Mass/Vol] 13.5 ug/mL Normal 10.0-20.0 [facility] Comment on above: Order Comment: Speci men Type: BLOOD SPECIMEN Result Comment: Refe rence ranges and high/low indicator flags are provided as general guidelines only. The treating physician must determine appropriate target levels/dosing based on the specific clinical situation. Performed By: #### 4 091-5 ####[facility] LABORATORYCLIA [id number] [address] aPTT PPPon 06-06-2021 aPTT Coag (PPP) [Time] 27.8 s Normal 23.0-32.4 [facility] Comment on above: Order Comment: Speci men Type: BLOOD SPECIMEN Performed By: #### 3 4528-0, 03477-2 ####[facility] LABORATORYCLIA [id number] [address] Basic metabolic 2000 panelon 06-05-2021 Anion gap [Moles/Vol] 11 mmol/L Normal 9-18 [facility] Comment on above: Order Comment: Speci men Type: BLOOD SPECIMEN Performed By: #### 1 9123-9, 20269-9, 2777-1 ####[facility] LABORATORYCLIA [id number] [address] Calcium [Mass/Vol] 8.6 mg/dL Normal 8.5-10.2 [facility] Comment on above: Order Comment: Speci men Type: BLOOD SPECIMEN Performed By: #### 1 91239, , 2776-05 ####[facility] LABORATORYCLIA [id number] [address] Chloride [Moles/Vol] 108 mmol/L High 97-105 [facility] Comment on above: Order Comment: Speci men Type: BLOOD SPECIMEN Performed By: #### 1 9123-9, 16147-9, 2776-05 ####[facility] LABORATORYCLIA [id number] [address] CO2 [Moles/Vol] 25 mmol/L Normal 22-30 [facility] Comment on above: Order Comment: Speci men Type: BLOOD SPECIMEN Performed By: #### 1 9, , 2776-05 ####[facility] LABORATORYCLIA [id number] [address] Creatinine [Mass/Vol] 0.77 mg/dL Normal 0.73-1.22 [facility] Comment on above: Order Comment: Speci men Type: BLOOD SPECIMEN Performed By: #### 1 9, , 2776-05 ####[facility] LABORATORYCLIA [id number] [address] GFR/1.73 sq M.predicted MDRD (S/P/Bld) [Vol rate/Area] mL/min/{1.73_m2} Normal [facility] Comment on above: Order Comment: Speci [...] Performed By: #### 1 9123-9, , 2776-05 ####[facility] LABORATORYCLIA [id number] [place] [address] [place] Glucose [Mass/Vol] 96 mg/dL Normal 74-99 [facility] Comment on above: Order Comment: Speci men Type: BLOOD SPECIMEN Result Comment: The [place] Diabetes Association (ADA) provides guidance for cutoff [...] Standards of Medical Care in Diabetes 2016, [place] Diabetes Association. Diabetes Care. 2016.39(Suppl 1). Performed By: #### 1 91239, , 2776-05 ####[facility] LABORATORYCLIA [id number] [address] [place] Potassium [Moles/Vol] 3.9 mmol/L Normal 3.7-5.1 [facility] Comment on above: Order Comment: Speci men Type: BLOOD SPECIMEN Performed By: #### 1 239, , 2776-05 ####[facility] LABORATORYCLIA [id number] [address] [place] Sodium [Moles/Vol] 144 mmol/L Normal 136-144 [facility] Comment on above: Order Comment: Speci men Type: BLOOD SPECIMEN Performed By: #### 1 9123-9, , 2776-05 ####[facility] LABORATORYCLIA [id number] [address] [place] Urea nitrogen [Mass/Vol] 26 mg/dL High 9-24 [facility] Comment on above: Order Comment: Speci men Type: BLOOD SPECIMEN Performed By: #### 1 9122-9, , 2776-1 ####[facility]ORATORYCLIA [id number] [address] CBC panel Auto (Bld)on 06-05 Erythrocyte distribution width (RBC) [Ratio] 15.9 % High 11.5-15.0 [facility] Comment on above: Order Comment: Speci men Type: BLOOD SPECIMEN Performed By: #### 5 8410-2 ####[facility] LABORATORYCLIA [id number] [address] Hematocrit (Bld) [Volume fraction] 39.6 % Normal 39.0-51.0 [facility] Comment on above: Order Comment: Speci men Type: BLOOD SPECIMEN Performed By: #### 5 8410-2 ####[facility] LABORATORYCLIA [id number] [address] Hemoglobin (Bld) [Mass/Vol] 12.3 g/dL Low 13.0-17.0 [facility] Comment on above: Order Comment: Speci men Type: BLOOD SPECIMEN Performed By: #### 5 8410-2 ####[facility] LABORATORYCLIA [id number] [address] MCH (RBC) [Entitic mass] 28.1 pg Normal 26.0-34.0 [facility] Comment on above: Order Comment: Speci men Type: BLOOD SPECIMEN Performed By: #### 5 8410-2 ####[facility] LABORATORYCLIA [id number] [address] MCHC (RBC) [Mass/Vol] 31.1 g/dL Normal 30.5-36.0 [facility] Comment on above: Order Comment: Speci men Type: BLOOD SPECIMEN Performed By: #### 5 8410-2 ####[facility] LABORATORYCLIA [id number] [address] MCV (RBC) [Entitic vol] 90.4 fL Normal 80.0-100.0 [facility] Comment on above: Order Comment: Speci men Type: BLOOD SPECIMEN Performed By: #### 5 8410-2 ####[facility] LABORATORYCLIA [id number] [address] Nucleated RBC (Bld) [#/Vol] 10*3/uL Normal <0.01 [facility] Comment on above: Order Comment: Speci men Type: BLOOD SPECIMEN Performed By: #### 5 8410-2 ####[facility] LABORATORYCLIA [id number] [address] Platelet mean volume (Bld) [Entitic vol] 10.5 fL Normal 9.0-12.7 [facility] Comment on above: Order Comment: Speci men Type: BLOOD SPECIMEN Performed By: #### 5 8410-2 ####[facility] LABORATORYCLIA [id number] [address] Platelets (Bld) [#/Vol] 224 10*3/uL Normal 150-400 [facility] Comment on above: Order Comment: Speci men Type: BLOOD SPECIMEN Performed By: #### 5 8410-2 ####[facility] LABORATORYCLIA [id number] [address] RBC (Bld) [#/Vol] 4.38 10*6/uL Normal 4.20-6.00 [facility] Comment on above: Order Comment: Speci men Type: BLOOD SPECIMEN Performed By: #### 5 8410-2 ####[facility] LABORATORYCLIA [id number] [address] WBC (Bld) [#/Vol] 9.66 10*3/uL Normal 3.70-11.00 [facility] Comment on above: Order Comment: Speci men Type: BLOOD SPECIMEN Performed By: #### 5 8410-2 ####[facility]ATORYCLIA [id number] [address] CONSULT PROGon 06-05-2021 CONSULT PROG Normal [facility] Gas and Carbon monoxide pane l (BldV)on 06-05-2021 Base excess Calc (BldV) [Moles/Vol] 1.8 mmol/L Normal 0-2 [facility] Comment on above: Order Comment: Speci men Type: VENOUS BLOOD SPECIMEN Performed By: #### 2 4344-4 ####[facility] LABORATORYCLIA [id number] [address] Body temperature 100.4 [degF] Normal [facility] Comment on above: Order Comment: Speci men Type: VENOUS BLOOD SPECIMEN Performed By: #### 2 4344-4 ####[facility] LABORATORYCLIA [id number] [address] CALCIUM IONIZED, PH CORRECTED 1.21 mmol/L Normal 1.08-1.30 [facility] Comment on above: Order Comment: Speci men Type: VENOUS BLOOD SPECIMEN Performed By: #### 2 4344-4 ####[facility] LABORATORYCLIA [id number] [address] Calcium.ionized (BldV) [Mass/Vol] 1.19 mmol/L Normal 1.08-1.30 [facility] Comment on above: Order Comment: Speci men Type: VENOUS BLOOD SPECIMEN Performed By: #### 2 4344-4 ####[facility] LABORATORYCLIA [id number] [address] Carboxyhemoglobin (BldV) [Mass fraction] 1.0 % Normal 0.0-2.0 [facility] Comment on above: Order Comment: Speci men Type: VENOUS BLOOD SPECIMEN Result Comment: Carb oxyhemoglobin Reference Range for Smokers: 2.0-8.0% Performed By: #### 2 4344-4 ####[facility] LABORATORYCLIA [id number] [address] CO2 (BldV) [Partial pressure] 41 mm[Hg] Low 42-55 [facility] Comment on above: Order Comment: Speci men Type: VENOUS BLOOD SPECIMEN Performed By: #### 2 4344-4 ####[facility]ORATORYCLIA [id number] [address] [place] OF [facility] CO2 [Moles/Vol] 23.4 mmol/L Low 25-29 [facility] Comment on above: Order Comment: Speci men Type: VENOUS BLOOD SPECIMEN Performed By: #### 2 4344-4 ####[facility] LABORATORYCLIA [id number] [address] CO2 adjusted to patient's actual temperature (BldV) [Partial pressure] 43 mmHg Normal 42-55 [facility] Comment on above: Order Comment: Speci men Type: VENOUS BLOOD SPECIMEN Performed By: #### 2 4344-4 ####[facility] LABORATORYCLIA [id number] [address] Glucose [Mass/Vol] 101 mg/dL Normal 60-105 [facility] Comment on above: Order Comment: Speci men Type: VENOUS BLOOD SPECIMEN Performed By: #### 2 4344-4 ####[facility] LABORATORYCLIA [id number] [address] [place] HCO3 (Bld) [Moles/Vol] 26.0 mmol/L Normal 24-[address] [facility] Comment on above: Order Comment: Speci men Type: VENOUS BLOOD SPECIMEN Performed By: #### 2 4344-4 ####[facility] LABORATORYCLIA [id number] [address] [place] Hematocrit (Bld) [Volume fraction] 38.4 % Low 39.0-51.0 [facility] Comment on above: Order Comment: Speci men Type: VENOUS BLOOD SPECIMEN Performed By: #### 2 4344-4 ####[facility] LABORATORYCLIA [id number] [address] [place] Hemoglobin (Bld) [Mass/Vol] 12.5 g/dL Low 13.0-17.0 [facility] Comment on above: Order Comment: Speci men Type: VENOUS BLOOD SPECIMEN Performed By: #### 2 4344-4 ####[facility]ATORYCLIA [id number] [place] [address] [facility] [place] Methemoglobin (Bld) [Mass fraction] % Normal 0.0-1.5 [facility] Comment on above: Order Comment: Speci men Type: VENOUS BLOOD SPECIMEN Performed By: #### 2 4344-4 ####[facility]ATORYCLIA [id number] [place] [address] [facility] [place] O2 THERAPY Ventilator Normal [facility] Comment on above: Order Comment: Speci men Type: VENOUS BLOOD SPECIMEN Performed By: #### 2 4344-4 ####[facility]ATORYCLIA [id number] [place] [address] [facility] [place] Oxygen (BldV) [Partial pressure] 44 mm[Hg] Normal 35-45 [facility] Comment on above: Order Comment: Speci men Type: VENOUS BLOOD SPECIMEN Performed By: #### 2 4344-4 ####[facility]ATORYCLIA [id number] [place], [place] [address] [place] [address] Oxygen adjusted to patient's actual temperature (BldV) [Partial pressure] 46.8 mmHg High 35-45 [facility] Comment on above: Order Comment: Speci men Type: VENOUS BLOOD SPECIMEN Performed By: #### 2 4344-4 ####[facility]ORATORYCLIA [id number] [place], [place] [address] [place] [address] [place] Oxygen saturation in Blood 76.5 % Normal 60-85 [facility] Comment on above: Order Comment: Speci men Type: VENOUS BLOOD SPECIMEN Performed By: #### 2 4344-4 ####[facility]ATORYCLIA [id number] [place] [address] [place] Oxyhemoglobin (BldV) [Mass fraction] 75 % Normal 60-85 [facility] Comment on above: Order Comment: Speci men Type: VENOUS BLOOD SPECIMEN Performed By: #### 2 4344-4 ####[facility]ATORYCLIA [id number] [place] [address] [place] pH (BldV) 7.42 [pH] Normal 7.32-7.42 [facility] Comment on above: Order Comment: Speci men Type: VENOUS BLOOD SPECIMEN Performed By: #### 2 4344-4 ####[facility]ATORYCLIA [id number] [address] pH adjusted to patient's actual temperature (BldV) 7.40 Normal 7.32-7.42 [facility] Comment on above: Order Comment: Speci men Type: VENOUS BLOOD SPECIMEN Performed By: #### 2 4344-4 ####[facility]ATORYCLIA [id number] [address] Potassium [Moles/Vol] 3.7 mmol/L Normal 3.5-5.0 [facility] Comment on above: Order Comment: Speci men Type: VENOUS BLOOD SPECIMEN Performed By: #### 2 4344-4 ####[facility] LABORATORYCLIA [id number] [address] Sodium [Moles/Vol] 141 mmol/L Normal 136-144 [facility] Comment on above: Order Comment: Speci men Type: VENOUS BLOOD SPECIMEN Performed By: #### 2 4344-4 ####[facility]ATORYCLIA [id number] [address] [place] Magnesium SerPl-mCncon 06-05 Magnesium [Mass/Vol] 2.3 mg/dL Normal 1.7-2.3 [facility] Comment on above: Order Comment: Speci men Type: BLOOD SPECIMEN Performed By: #### 1 9123-9, 38381-7, 2776-05 ####[facility]ORYCLIA [id number] [address] [place] Phosphate SerPl-mCncon 06-05 Phosphate [Mass/Vol] 2.9 mg/dL Normal 2.7-4.8 [facility] Comment on above: Order Comment: Speci men Type: BLOOD SPECIMEN Performed By: #### 1 9123-9, 08452-1, 2776-05 ####[facility]ATORYCLIA [id number] [place] [address] [place] Vancomycin random [Mass/Vol] on 06-05-2021 Vancomycin [Mass/Vol] 23.2 ug/mL High 10.0-20.0 [facility] Comment on above: Order Comment: Speci men Type: BLOOD SPECIMEN Result Comment: Refe rence ranges and high/low indicator flags are provided as general guidelines only. The treating physician must determine appropriate target levels/dosing based on the specific clinical situation. Performed By: #### 4 091-5 ####[facility] LABORATORYCLIA [id number] [place] [id number] [place] (1,3)-Z-U-LDBTXQqq 2 (1,3) B-D GLUCAN <31 Normal <60 [facility] Comment on above: Order Comment: Speci men Type: BLOOD SPECIMEN Performed By: #### B DGLUC ####[facility] LABCLIA [id number] [place] AVEDRadicoK [id number] [place], [place] [address] [place] (1,3) B-D GLUCAN, QUAL Negative Normal NEGAT [facility] Comment on above: Order Comment: Speci men Type: BLOOD SPECIMEN Result Comment: Cert ain fungi, such as the genus Cryptococcus which produces very low levels of (1,3)-masl-Z-fcclee, may not result in serum (1,3)-fiby-K-gnzmoh sufficiently elevated so as to be detected by the assay. Infections with fungi of the order Mucorales such as Absidia, Mucor and Rhizopus which are not known to produce (1,3)-gjwa-Q-bjirin, are also observed to yield low serum (1,3)-fwfd-F-yqemsx titers.In addition, the yeast phase of Blastomyces dermatitidis produces little (1,3)-iare-I-rmarqb and may not be detected by the assay. Performed By: #### B DGLUC ####[facility] LABCLIA [id number] [place] [id number] [address] [place] ALLIED HEALTHon 06-04-2021 ALLIED HEALTH Normal [facility] ALLIED HEALTH Normal [facility] ARTERIAL BLOOD GASESon 06-04 Base excess Calc (Bld) [Moles/Vol] 3 mmol/L High 0-2 [facility] Comment on above: Order Comment: Speci men Type: ARTERIAL BLOOD SPECIMEN Performed By: #### A LLBG ####[facility] LABORATORYCLIA [id number] [address] Body temperature 98.06 [degF] Normal [facility] Comment on above: Order Comment: Speci men Type: ARTERIAL BLOOD SPECIMEN Performed By: #### A LLBG ####[facility] LABORATORYCLIA [id number] [address] CALCIUM IONIZED, PH CORRECTED 1.19 mmol/L Normal 1.08-1.30 [facility] Comment on above: Order Comment: Speci men Type: ARTERIAL BLOOD SPECIMEN Performed By: #### A LLBG ####[facility] LABORATORYCLIA [id number] [address] STATES [facility] Calcium.ionized (BldV) [Mass/Vol] 1.14 mmol/L Normal 1.08-1.30 [facility] Comment on above: Order Comment: Speci men Type: ARTERIAL BLOOD SPECIMEN Performed By: #### A LLBG ####[facility] LABORATORYCLIA [id number] [address] [place] Carboxyhemoglobin (BldA) [Mass fraction] 1.2 % Normal 0.0-2.0 [facility] Comment on above: Order Comment: Speci men Type: ARTERIAL BLOOD SPECIMEN Result Comment: Carb oxyhemoglobin Reference Range for Smokers: 2.0-8.0% Performed By: #### A LLBG ####[facility] LABORATORYCLIA [id number] [address] CO2 (Bld) [Partial pressure] 35 mm Hg Low 36-46 [facility] Comment on above: Order Comment: Speci men Type: ARTERIAL BLOOD SPECIMEN Performed By: #### A LLBG ####[facility]ORYCLIA [id number] [address] CO2 [Moles/Vol] 23.2 mmol/L Normal 22-28 [facility] Comment on above: Order Comment: Speci men Type: ARTERIAL BLOOD SPECIMEN Performed By: #### A LLBG ####[facility]ORYCLIA [id number] [address] CO2 adjusted to patient's actual temperature (Bld) [Partial pressure] 34 mmHg Low 36-46 [facility] Comment on above: Order Comment: Speci men Type: ARTERIAL BLOOD SPECIMEN Performed By: #### A LLBG ####[facility] LABORATORYCLIA [id number] [address] Glucose [Mass/Vol] 115 mg/dL High 60-105 [facility] Comment on above: Order Comment: Speci men Type: ARTERIAL BLOOD SPECIMEN Performed By: #### A LLBG ####[facility] LABORATORYCLIA [id number] [address] HCO3 (Bld) [Moles/Vol] 26 mmol/L Normal 22-26 [facility] Comment on above: Order Comment: Speci men Type: ARTERIAL BLOOD SPECIMEN Performed By: #### A LLBG ####[facility] LABORATORYCLIA [id number] [address] Hematocrit (Bld) [Volume fraction] 35.3 % Low 39.0-51.0 [facility] Comment on above: Order Comment: Speci men Type: ARTERIAL BLOOD SPECIMEN Performed By: #### A LLBG ####[facility]ATORYCLIA [id number] [address] [place] Hemoglobin (Bld) [Mass/Vol] 11.5 g/dL Low 13.0-17.0 [facility] Comment on above: Order Comment: Speci men Type: ARTERIAL BLOOD SPECIMEN Performed By: #### A LLBG ####[facility]ORYCLIA [id number] [address] Methemoglobin (Bld) [Mass fraction] % Normal 0.0-1.5 [facility] Comment on above: Order Comment: Speci men Type: ARTERIAL BLOOD SPECIMEN Performed By: #### A LLBG ####[facility]ATORYCLIA [id number] [address] O2 THERAPY Ventilator Normal [facility] Comment on above: Order Comment: Speci men Type: ARTERIAL BLOOD SPECIMEN Performed By: #### A LLBG ####[facility]ATORYCLIA [id number] [address] Oxygen (Bld) [Partial pressure] 66 mm Hg Low 85-95 [facility] Comment on above: Order Comment: Speci men Type: ARTERIAL BLOOD SPECIMEN Performed By: #### A LLBG ####[facility]ATORYCLIA [id number] [address] Oxygen adjusted to patient's actual temperature (Bld) [Partial pressure] 64.3 mmHg Low 85-95 [facility] Comment on above: Order Comment: Speci men Type: ARTERIAL BLOOD SPECIMEN Performed By: #### A LLBG ####[facility]ORYCLIA [id number] [address] OXYGEN SATURATION, ARTERIAL 95 % Normal 95-98 [facility] Comment on above: Order Comment: Speci men Type: ARTERIAL BLOOD SPECIMEN Performed By: #### A LLBG ####[facility]ORYCLIA [id number] [address] Oxyhemoglobin (BldA) [Mass fraction] 93 % Low 95-98 [facility] Comment on above: Order Comment: Speci men Type: ARTERIAL BLOOD SPECIMEN Performed By: #### A LLBG ####[facility]ATORYCLIA [id number] [address] pH (Bld) 7.49 [pH] High 7.35-7.45 [facility] Comment on above: Order Comment: Speci men Type: ARTERIAL BLOOD SPECIMEN Performed By: #### A LLBG ####[facility]ATORYCLIA [id number] [address] pH adjusted to patient's actual temperature (Bld) 7.49 High 7.35-7.45 [facility] Comment on above: Order Comment: Speci men Type: ARTERIAL BLOOD SPECIMEN Performed By: #### A LLBG ####[facility] LABORATORYCLIA [id number] [address] Potassium [Moles/Vol] 2.8 mmol/L Low 3.5-5.0 [facility] Comment on above: Order Comment: Speci men Type: ARTERIAL BLOOD SPECIMEN Performed By: #### A LLBG ####[facility] LABORATORYCLIA [id number] [address] Bas Metab 2000 Pnl SerPlon 0 06-04-2021 Sodium [Moles/Vol] 143 mmol/L Normal 136-144 [facility] Comment on above: Order Comment: Speci men Type: BLOOD SPECIMEN Performed By: #### 2 777-1, , ####[facility] LABORATORYCLIA [id number] [address] Order Comment: Speci men Type: ARTERIAL BLOOD SPECIMEN Performed By: #### A LLBG ####[facility] LABORATORYCLIA [id number] [address] Basic metabolic 2000 panelon 06-04-2021 Anion gap [Moles/Vol] 11 mmol/L Normal 9-18 [facility] Comment on above: Order Comment: Speci men Type: BLOOD SPECIMEN Performed By: #### 2 777-1, , ####[facility]ORYCLIA [id number] [address] Calcium [Mass/Vol] 8.5 mg/dL Normal 8.5-10.2 [facility] Comment on above: Order Comment: Speci men Type: BLOOD SPECIMEN Performed By: #### 2 777-1, , ####[facility] LABORATORYCLIA [id number] [place] [id number] [place] Chloride [Moles/Vol] 107 mmol/L High 97-105 [facility] Comment on above: Order Comment: Speci men Type: BLOOD SPECIMEN Performed By: #### 2 777-1, , ####[facility] LABORATORYCLIA [id number] [place] [id number] [place] CO2 [Moles/Vol] 25 mmol/L Normal 22-30 [facility] Comment on above: Order Comment: Speci men Type: BLOOD SPECIMEN Performed By: #### 2 777-1, , ####[facility] LABORATORYCLIA [id number] [address] [place] Creatinine [Mass/Vol] 0.77 mg/dL Normal 0.73-1.22 [facility] Comment on above: Order Comment: Speci men Type: BLOOD SPECIMEN Performed By: #### 2 777-1, , ####[facility] LABORATORYCLIA [id number] [place] [address] [place] GFR/1.73 sq M.predicted MDRD (S/P/Bld) [Vol rate/Area] mL/min/{1.73_m2} Normal [facility] Comment on above: Order Comment: Speci [...] GFR. Performed By: #### 2 777-1, , ####[facility] LABORATORYCLIA [id number] [place] [address] [place] Glucose [Mass/Vol] 107 mg/dL High 74-99 [facility] Comment on above: Order Comment: Speci men Type: BLOOD SPECIMEN Result Comment: The [place] Diabetes Association (ADA) provides guidance for cutoff [...] Standards of Medical Care in Diabetes 2016, [place] Diabetes Association. Diabetes Care. 2016.39(Suppl 1). Performed By: #### 2 777-1, , ####[facility] LABORATORYCLIA [id number] [address] OF [facility] Potassium [Moles/Vol] 3.1 mmol/L Low 3.7-5.1 [facility] Comment on above: Order Comment: Speci men Type: BLOOD SPECIMEN Performed By: #### 2 777-1, , ####[facility]ORATORYCLIA [id number] [address] [place] OF [facility] Urea nitrogen [Mass/Vol] 19 mg/dL Normal 9-24 [facility] Comment on above: Order Comment: Speci men Type: BLOOD SPECIMEN Performed By: #### 2 777-1, , ####[facility] LABORATORYCLIA [id number] [address] [facility] CBC panel Auto (Bld)on 06-04 Erythrocyte distribution width (RBC) [Ratio] 15.8 % High 11.5-15.0 [facility] Comment on above: Order Comment: Speci men Type: BLOOD SPECIMEN Performed By: #### 5 8410-2 ####[facility] LABORATORYCLIA [id number] [address] Hematocrit (Bld) [Volume fraction] 36.9 % Low 39.0-51.0 [facility] Comment on above: Order Comment: Speci men Type: BLOOD SPECIMEN Performed By: #### 5 8410-2 ####[facility] LABORATORYCLIA [id number] [address] Hemoglobin (Bld) [Mass/Vol] 11.2 g/dL Low 13.0-17.0 [facility] Comment on above: Order Comment: Speci men Type: BLOOD SPECIMEN Performed By: #### 5 8410-2 ####[facility] LABORATORYCLIA [id number] [address] MCH (RBC) [Entitic mass] 27.3 pg Normal 26.0-34.0 [facility] Comment on above: Order Comment: Speci men Type: BLOOD SPECIMEN Performed By: #### 5 8410-2 ####[facility] LABORATORYCLIA [id number] [address] MCHC (RBC) [Mass/Vol] 30.4 g/dL Low 30.5-36.0 [facility] Comment on above: Order Comment: Speci men Type: BLOOD SPECIMEN Performed By: #### 5 8410-2 ####[facility] LABORATORYCLIA [id number] [address] MCV (RBC) [Entitic vol] 89.8 fL Normal 80.0-100.0 [facility] Comment on above: Order Comment: Speci men Type: BLOOD SPECIMEN Performed By: #### 5 8410-2 ####[facility] LABORATORYCLIA [id number] [address] Nucleated RBC (Bld) [#/Vol] 10*3/uL Normal <0.01 [facility] Comment on above: Order Comment: Speci men Type: BLOOD SPECIMEN Performed By: #### 5 8410-2 ####[facility] LABORATORYCLIA [id number] [address] Platelet mean volume (Bld) [Entitic vol] 10.7 fL Normal 9.0-12.7 [facility] Comment on above: Order Comment: Speci men Type: BLOOD SPECIMEN Performed By: #### 5 8410-2 ####[facility] LABORATORYCLIA [id number] [address] Platelets (Bld) [#/Vol] 174 10*3/uL Normal 150-400 [facility] Comment on above: Order Comment: Speci men Type: BLOOD SPECIMEN Performed By: #### 5 8410-2 ####[facility] LABORATORYCLIA [id number] [address] RBC (Bld) [#/Vol] 4.11 10*6/uL Low 4.20-6.00 [facility] Comment on above: Order Comment: Speci men Type: BLOOD SPECIMEN Performed By: #### 5 8410-2 ####[facility] LABORATORYCLIA [id number] [address] WBC (Bld) [#/Vol] 8.29 10*3/uL Normal 3.70-11.00 [facility] Comment on above: Order Comment: Speci men Type: BLOOD SPECIMEN Performed By: #### 5 8410-2 ####[facility] LABORATORYCLIA [id number] [address] CONSULT PROGon 06-04-2021 CONSULT PROG Normal [facility] CT BRAIN WO IVCONon 06-04-19 CT BRAIN WO IVCON Normal [facility] CT CHEST W IVCON PEon 2021 CT CHEST W IVCON PE Normal [facility] Magnesium SerPl-mCncon 06-04 Magnesium [Mass/Vol] 2.2 mg/dL Normal 1.7-2.3 [facility] Comment on above: Order Comment: Speci men Type: BLOOD SPECIMEN Performed By: #### 2 777-1, 37269-4, 77048-0 ####[facility] LABORATORYCLIA [id number] [address] [facility] Natriuretic peptide.B prohormone N-Terminal [Mass/Vol] 229 pg/mL High <125 [facility] Comment on above: Order Comment: Speci men Type: BLOOD SPECIMEN Performed By: #### 3 3762-6, 4090-5 ####[facility] LABORATORYCLIA [id number] [address] [facility] Phosphate SerPl-ncon 06-04 Phosphate [Mass/Vol] 2.0 mg/dL Low 2.7-4.8 [facility] Comment on above: Order Comment: Speci men Type: BLOOD SPECIMEN Performed By: #### 2 777-1, , ####[facility] LABORATORYCLIA [id number] [address] Vancomycin random [Mass/Vol] on 06-04-2021 Vancomycin [Mass/Vol] 35.2 ug/mL High 10.0-20.0 [facility] Comment on above: Order Comment: Speci men Type: BLOOD SPECIMEN Result Comment: Refe rence ranges and high/low indicator flags are provided as general guidelines only. The treating physician must determine appropriate target levels/dosing based on the specific clinical situation. Performed By: #### 3 3762-6, 4090-5 ####[facility] LABORATORYCLIA [id number] [address] [place] XR ABDOMEN 1V SUPINEon 06-04 XR ABDOMEN 1V SUPINE Normal [facility] ALLIED HEALTHon 06-03-2021 ALLIED HEALTH Normal [facility] ARTERIAL BLOOD GASESon 06-03 Base excess Calc (Bld) [Moles/Vol] 5 mmol/L High 0-2 [facility] Comment on above: Order Comment: Speci men Type: ARTERIAL BLOOD SPECIMEN Performed By: #### A LLBG ####[facility] LABORATORYCLIA [id number] [address] Body temperature 99.5 [degF] Normal [facility] Comment on above: Order Comment: Speci men Type: ARTERIAL BLOOD SPECIMEN Performed By: #### A LLBG ####[facility] LABORATORYCLIA [id number] [address] CALCIUM IONIZED, PH CORRECTED 1.18 mmol/L Normal 1.08-1.30 [facility] Comment on above: Order Comment: Speci men Type: ARTERIAL BLOOD SPECIMEN Performed By: #### A LLBG ####[facility] LABORATORYCLIA [id number] [address] Calcium.ionized (BldV) [Mass/Vol] 1.16 mmol/L Normal 1.08-1.30 [facility] Comment on above: Order Comment: Speci men Type: ARTERIAL BLOOD SPECIMEN Performed By: #### A LLBG ####[facility] LABORATORYCLIA [id number] [address] [facility] Carboxyhemoglobin (BldA) [Mass fraction] 1.2 % Normal 0.0-2.0 [facility] Comment on above: Order Comment: Speci men Type: ARTERIAL BLOOD SPECIMEN Result Comment: Carb oxyhemoglobin Reference Range for Smokers: 2.0-8.0% Performed By: #### A LLBG ####[facility] LABORATORYCLIA [id number] [address] CO2 (Bld) [Partial pressure] 45 mm Hg Normal 36-46 [facility] Comment on above: Order Comment: Speci men Type: ARTERIAL BLOOD SPECIMEN Performed By: #### A LLBG ####[facility] LABORATORYCLIA [id number] [address] CO2 [Moles/Vol] 26.9 mmol/L Normal 22-28 [facility] Comment on above: Order Comment: Speci men Type: ARTERIAL BLOOD SPECIMEN Performed By: #### A LLBG ####[facility]ORATORYCLIA [id number] [address] CO2 adjusted to patient's actual temperature (Bld) [Partial pressure] 47 mmHg High 36-46 [facility] Comment on above: Order Comment: Speci men Type: ARTERIAL BLOOD SPECIMEN Performed By: #### A LLBG ####[facility]ORATORYCLIA [id number] [address] Glucose [Mass/Vol] 141 mg/dL High 60-105 [facility] Comment on above: Order Comment: Speci men Type: ARTERIAL BLOOD SPECIMEN Performed By: #### A LLBG ####[facility] LABORATORYCLIA [id number] [address] HCO3 (Bld) [Moles/Vol] 30 mmol/L High 22-26 [facility] Comment on above: Order Comment: Speci men Type: ARTERIAL BLOOD SPECIMEN Performed By: #### A LLBG ####[facility] LABORATORYCLIA [id number] [address] Hematocrit (Bld) [Volume fraction] 35.8 % Low 39.0-51.0 [facility] Comment on above: Order Comment: Speci men Type: ARTERIAL BLOOD SPECIMEN Performed By: #### A LLBG ####[facility] LABORATORYCLIA [id number] [address] Hemoglobin (Bld) [Mass/Vol] 11.6 g/dL Low 13.0-17.0 [facility] Comment on above: Order Comment: Speci men Type: ARTERIAL BLOOD SPECIMEN Performed By: #### A LLBG ####[facility] LABORATORYCLIA [id number] [address] Methemoglobin (Bld) [Mass fraction] % Normal 0.0-1.5 [facility] Comment on above: Order Comment: Speci men Type: ARTERIAL BLOOD SPECIMEN Performed By: #### A LLBG ####[facility]ATORYCLIA [id number] [address] O2 THERAPY Ventilator Normal [facility] Comment on above: Order Comment: Speci men Type: ARTERIAL BLOOD SPECIMEN Performed By: #### A LLBG ####[facility]ORATORYCLIA [id number] [place], [place] [id number] [place] [address] Oxygen (Bld) [Partial pressure] 69 mm Hg Low 85-95 [facility] Comment on above: Order Comment: Speci men Type: ARTERIAL BLOOD SPECIMEN Performed By: #### A LLBG ####[facility]ORATORYCLIA [id number] [address] Oxygen adjusted to patient's actual temperature (Bld) [Partial pressure] 70.8 mmHg Low 85-95 [facility] Comment on above: Order Comment: Speci men Type: ARTERIAL BLOOD SPECIMEN Performed By: #### A LLBG ####[facility]ORATORYCLIA [id number] [address] OXYGEN SATURATION, ARTERIAL 94 % Low 95-98 [facility] Comment on above: Order Comment: Speci men Type: ARTERIAL BLOOD SPECIMEN Performed By: #### A LLBG ####[facility]ATORYCLIA [id number] [address] Oxyhemoglobin (BldA) [Mass fraction] 93 % Low 95-98 [facility] Comment on above: Order Comment: Speci men Type: ARTERIAL BLOOD SPECIMEN Performed By: #### A LLBG ####[facility]ATORYCLIA [id number] [address] [place] pH (Bld) 7.43 [pH] Normal 7.35-7.45 [facility] Comment on above: Order Comment: Speci men Type: ARTERIAL BLOOD SPECIMEN Performed By: #### A LLBG ####[facility]ATORYCLIA [id number] [address] pH adjusted to patient's actual temperature (Bld) 7.43 Normal 7.35-7.45 [facility] Comment on above: Order Comment: Speci men Type: ARTERIAL BLOOD SPECIMEN Performed By: #### A LLBG ####[facility] LABORATORYCLIA [id number] [address] STATES OF [facility] Potassium [Moles/Vol] 3.1 mmol/L Low 3.5-5.0 [facility] Comment on above: Order Comment: Speci men Type: ARTERIAL BLOOD SPECIMEN Performed By: #### A LLBG ####[facility] LABORATORYCLIA [id number] [address] Sodium [Moles/Vol] 145 mmol/L High 136-144 [facility] Comment on above: Order Comment: Speci men Type: ARTERIAL BLOOD SPECIMEN Performed By: #### A LLBG ####[facility] LABORATORYCLIA [id number] [address] ASPERGILLUS GALACTOMANNAN SE RUMon 06-03-2021 Galactomannan Ag IA Ql Negative Normal NEGAT [facility] Comment on above: Order Comment: Speci men [...] is suspected. Performed By: #### A SGALS ####[facility]FER[facility] LABCLIA [id number] [place] [facility] [address] [place] Galactomannan Ag IA Qn <0.50 Normal [facility] Comment on above: Order Comment: Speci men Type: BLOOD SPECIMEN Result Comment: Inde x Values are Interpreted as Follows:Negative specimens <0.50Positive specimens >=0.50 Performed By: #### A SGALS ####[facility]FER[facility] LABCLIA [id number] [place] [facility] [address] [address] [place] Basic metabolic 2000 panelon 06-03-2021 Anion gap [Moles/Vol] 8 mmol/L Low 9-18 [facility] Comment on above: Order Comment: Speci men Type: BLOOD SPECIMEN Performed By: #### 1 9123-9, 2776-05, 73373-4 ####[facility] LABORATORYCLIA [id number] [address] [facility] Calcium [Mass/Vol] 8.0 mg/dL Low 8.5-10.2 [facility] Comment on above: Order Comment: Speci men Type: BLOOD SPECIMEN Performed By: #### 1 9123-9, 2776-05, 64015-7 ####[facility] LABORATORYCLIA [id number] [address] [facility] Chloride [Moles/Vol] 110 mmol/L High 97-105 [facility] Comment on above: Order Comment: Speci men Type: BLOOD SPECIMEN Performed By: #### 1 9123-9, 2776-05, 73734-2 ####[facility] LABORATORYCLIA [id number] [address] [place] OF [facility] CO2 [Moles/Vol] 28 mmol/L Normal 22-30 [facility] Comment on above: Order Comment: Speci men Type: BLOOD SPECIMEN Performed By: #### 1 9123-9, 2776-05, ####[facility] LABORATORYCLIA [id number] [address] [place] Creatinine [Mass/Vol] 0.75 mg/dL Normal 0.73-1.22 [facility] Comment on above: Order Comment: Speci men Type: BLOOD SPECIMEN Performed By: #### 1 9123-9, 2776-05, ####[facility] LABORATORYCLIA [id number] [place] [address] [place] GFR/1.73 sq M.predicted MDRD (S/P/Bld) [Vol rate/Area] mL/min/{1.73_m2} Normal [facility] Comment on above: Order Comment: Speci men Type: BLOOD SPECIMEN Result Comment: >60e GFR (Estimated GFR) Units of measure: mL/min/1.73 meters squaredeGFR is derived from the reexpressed MDRD Study equation using the following parameters: serum creatinine, age, gender and race. The creatinine assay has been calibrated to be traceable to [employer]. An eGFR <60 mL/min/1.73m2 for >3 months is consistent with chronic kidney disease. Refer to KDOQI guidelines for clinical interpretation. In patients with unstable renal function, e.g. those with acute kidney injury, the eGFR may not accurately reflect actual GFR. Performed By: #### 1 9123-9, 2777, 80967-5 ####[facility] LABORATORYCLIA [id number] [place] [address] [place] Glucose [Mass/Vol] 141 mg/dL High 74-99 [facility] Comment on above: Order Comment: Speci men Type: BLOOD SPECIMEN Result Comment: The [place] Diabetes Association (ADA) provides guidance for cutoff [...] Standards of Medical Care in Diabetes 2016, [place] Diabetes Association. Diabetes Care. 2016.39(Suppl 1). Performed By: #### 1 9123-9, 2777, 90421-7 ####[facility] LABORATORYCLIA [id number] [address] [place] Potassium [Moles/Vol] 3.3 mmol/L Low 3.7-5.1 [facility] Comment on above: Order Comment: Speci men Type: BLOOD SPECIMEN Performed By: #### 1 9123-9, 2777, 41005-9 ####[facility] LABORATORYCLIA [id number] [address] [place] Sodium [Moles/Vol] 146 mmol/L High 136-144 [facility] Comment on above: Order Comment: Speci men Type: BLOOD SPECIMEN Performed By: #### 1 9123-9, 2777-1, 10427-8 ####[facility] LABORATORYCLIA [id number] [address] Urea nitrogen [Mass/Vol] 10 mg/dL Normal 9-24 [facility] Comment on above: Order Comment: Speci men Type: BLOOD SPECIMEN Performed By: #### 1 9123-9, 2777-1, 33017-1 ####[facility] LABORATORYCLIA [id number] [address] CASE MANAGEMon 06-03-2021 CASE MANAGEM Normal [facility] CBC panel Auto (Bld)on 06-03 Erythrocyte distribution width (RBC) [Ratio] 15.6 % High 11.5-15.0 [facility] Comment on above: Order Comment: Speci men Type: BLOOD SPECIMEN Performed By: #### 5 8410-2 ####[facility] LABORATORYCLIA [id number] [address] Hematocrit (Bld) [Volume fraction] 36.9 % Low 39.0-51.0 [facility] Comment on above: Order Comment: Speci men Type: BLOOD SPECIMEN Performed By: #### 5 8410-2 ####[facility] LABORATORYCLIA [id number] [address] Hemoglobin (Bld) [Mass/Vol] 11.1 g/dL Low 13.0-17.0 [facility] Comment on above: Order Comment: Speci men Type: BLOOD SPECIMEN Performed By: #### 5 8410-2 ####[facility] LABORATORYCLIA [id number] [address] MCH (RBC) [Entitic mass] 27.0 pg Normal 26.0-34.0 [facility] Comment on above: Order Comment: Speci men Type: BLOOD SPECIMEN Performed By: #### 5 8410-2 ####[facility] LABORATORYCLIA [id number] [address] MCHC (RBC) [Mass/Vol] 30.1 g/dL Low 30.5-36.0 [facility] Comment on above: Order Comment: Speci men Type: BLOOD SPECIMEN Performed By: #### 5 8410-2 ####[facility] LABORATORYCLIA [id number] [address] MCV (RBC) [Entitic vol] 89.8 fL Normal 80.0-100.0 [facility] Comment on above: Order Comment: Speci men Type: BLOOD SPECIMEN Performed By: #### 5 8410-2 ####[facility] LABORATORYCLIA [id number] [address] Nucleated RBC (Bld) [#/Vol] 10*3/uL Normal <0.01 [facility] Comment on above: Order Comment: Speci men Type: BLOOD SPECIMEN Performed By: #### 5 8410-2 ####[facility] LABORATORYCLIA [id number] [address] Platelet mean volume (Bld) [Entitic vol] 10.5 fL Normal 9.0-12.7 [facility] Comment on above: Order Comment: Speci men Type: BLOOD SPECIMEN Performed By: #### 5 8410-2 ####[facility] LABORATORYCLIA [id number] [address] Platelets (Bld) [#/Vol] 196 10*3/uL Normal 150-400 [facility] Comment on above: Order Comment: Speci men Type: BLOOD SPECIMEN Performed By: #### 5 8410-2 ####[facility] LABORATORYCLIA [id number] [address] RBC (Bld) [#/Vol] 4.11 10*6/uL Low 4.20-6.00 [facility] Comment on above: Order Comment: Speci men Type: BLOOD SPECIMEN Performed By: #### 5 8410-2 ####[facility] LABORATORYCLIA [id number] [address] [place] WBC (Bld) [#/Vol] 8.18 10*3/uL Normal 3.70-11.00 [facility] Comment on above: Order Comment: Speci men Type: BLOOD SPECIMEN Performed By: #### 5 8410-2 ####[facility] LABORATORYCLIA [id number] [address] [place] CONSULTon 06-03-2021 CONSULT Normal [facility] CONSULT PROGon 06-03-2021 CONSULT PROG Normal [facility] Gas and Carbon monoxide pane l (BldV)on 06-03-2021 Base excess Calc (BldV) [Moles/Vol] 1.4 mmol/L Normal 0-2 [facility] Comment on above: Order Comment: Speci men Type: VENOUS BLOOD SPECIMEN Performed By: #### 2 4344-4 ####[facility] LABORATORYCLIA [id number] [address] Body temperature 98.42 [degF] Normal [facility] Comment on above: Order Comment: Speci men Type: VENOUS BLOOD SPECIMEN Performed By: #### 2 4344-4 ####[facility] LABORATORYCLIA [id number] [address] [place] [facility] CALCIUM IONIZED, PH CORRECTED 1.09 mmol/L Normal 1.08-1.30 [facility] Comment on above: Order Comment: Speci men Type: VENOUS BLOOD SPECIMEN Performed By: #### 2 4344-4 ####[facility] LABORATORYCLIA [id number] [address] [place] Calcium.ionized (BldV) [Mass/Vol] 1.12 mmol/L Normal 1.08-1.30 [facility] Comment on above: Order Comment: Speci men Type: VENOUS BLOOD SPECIMEN Performed By: #### 2 4344-4 ####[facility] LABORATORYCLIA [id number] [address] [place] Carboxyhemoglobin (BldV) [Mass fraction] 1.7 % Normal 0.0-2.0 [facility] Comment on above: Order Comment: Speci men Type: VENOUS BLOOD SPECIMEN Result Comment: Carb oxyhemoglobin Reference Range for Smokers: 2.0-8.0% Performed By: #### 2 4344-4 ####[facility]ORATORYCLIA [id number] [address] [facility] CO2 (BldV) [Partial pressure] 50 mm[Hg] Normal 42-55 [facility] Comment on above: Order Comment: Speci men Type: VENOUS BLOOD SPECIMEN Performed By: #### 2 4344-4 ####[facility]ATORYCLIA [id number] [address] [facility] CO2 [Moles/Vol] 24.9 mmol/L Low 25-29 [facility] Comment on above: Order Comment: Speci men Type: VENOUS BLOOD SPECIMEN Performed By: #### 2 4344-4 ####[facility]ATORYCLIA [id number] [address] CO2 adjusted to patient's actual temperature (BldV) [Partial pressure] 50 mmHg Normal 42-55 [facility] Comment on above: Order Comment: Speci men Type: VENOUS BLOOD SPECIMEN Performed By: #### 2 4344-4 ####[facility]ATORYCLIA [id number] [address] [place] FIO2 30 % Normal [facility] Comment on above: Order Comment: Speci men Type: VENOUS BLOOD SPECIMEN Performed By: #### 2 4344-4 ####[facility]ATORYCLIA [id number] [address] [place] Glucose [Mass/Vol] 191 mg/dL High 60-105 [facility] Comment on above: Order Comment: Speci men Type: VENOUS BLOOD SPECIMEN Performed By: #### 2 4344-4 ####[facility]ORYCLIA [id number] [address] [place] HCO3 (Bld) [Moles/Vol] 27.1 mmol/L Normal 24-[address] [facility] Comment on above: Order Comment: Speci men Type: VENOUS BLOOD SPECIMEN Performed By: #### 2 4344-4 ####[facility]ORYCLIA [id number] [address] Hematocrit (Bld) [Volume fraction] 36.2 % Low 39.0-51.0 [facility] Comment on above: Order Comment: Speci men Type: VENOUS BLOOD SPECIMEN Performed By: #### 2 4344-4 ####[facility]ATORYCLIA [id number] [address] Hemoglobin (Bld) [Mass/Vol] 11.8 g/dL Low 13.0-17.0 [facility] Comment on above: Order Comment: Speci men Type: VENOUS BLOOD SPECIMEN Performed By: #### 2 4344-4 ####[facility]ATORYCLIA [id number] [address] INHALED TIDAL VOLUME (ML) 530 Normal [facility] Comment on above: Order Comment: Speci men Type: VENOUS BLOOD SPECIMEN Performed By: #### 2 4344-4 ####[facility] LABORATORYCLIA [id number] [address] Methemoglobin (Bld) [Mass fraction] % Normal 0.0-1.5 [facility] Comment on above: Order Comment: Speci men Type: VENOUS BLOOD SPECIMEN Performed By: #### 2 4344-4 ####[facility]ATORYCLIA [id number] [address] [place] O2 THERAPY Ventilator Normal [facility] Comment on above: Order Comment: Speci men Type: VENOUS BLOOD SPECIMEN Performed By: #### 2 4344-4 ####[facility]ATORYCLIA [id number] [address] Oxygen (BldV) [Partial pressure] 69 mm[Hg] High 35-45 [facility] Comment on above: Order Comment: Speci men Type: VENOUS BLOOD SPECIMEN Performed By: #### 2 4344-4 ####[facility] LABORATORYCLIA [id number] [place], [place] [id number] [place] [address] Oxygen adjusted to patient's actual temperature (BldV) [Partial pressure] 68.8 mmHg High 35-45 [facility] Comment on above: Order Comment: Speci men Type: VENOUS BLOOD SPECIMEN Performed By: #### 2 4344-4 ####[facility]ORYCLIA [id number] [place], [place] [address] [place] [address] Oxygen saturation in Blood 92.4 % High 60-85 [facility] Comment on above: Order Comment: Speci men Type: VENOUS BLOOD SPECIMEN Performed By: #### 2 4344-4 ####[facility]ORYCLIA [id number] [address] Oxyhemoglobin (BldV) [Mass fraction] 90 % High 60-85 [facility] Comment on above: Order Comment: Speci men Type: VENOUS BLOOD SPECIMEN Performed By: #### 2 4344-4 ####[facility]ATORYCLIA [id number] [place], [place] [address] [place] [address] PEEP/CPAP 8 cmH2O Normal [facility] Comment on above: Order Comment: Speci men Type: VENOUS BLOOD SPECIMEN Performed By: #### 2 4344-4 ####[facility]ATORYCLIA [id number] [place], [place] [address] [place] [address] [facility] pH (BldV) 7.35 [pH] Normal 7.32-7.42 [facility] Comment on above: Order Comment: Speci men Type: VENOUS BLOOD SPECIMEN Performed By: #### 2 4344-4 ####[facility]ORYCLIA [id number] [place], [place] [id number] [place] [address] pH adjusted to patient's actual temperature (BldV) 7.35 Normal 7.32-7.42 [facility] Comment on above: Order Comment: Speci men Type: VENOUS BLOOD SPECIMEN Performed By: #### 2 4344-4 ####[facility]ORYCLIA [id number] [address] Potassium [Moles/Vol] 3.6 mmol/L Normal 3.5-5.0 [facility] Comment on above: Order Comment: Speci men Type: VENOUS BLOOD SPECIMEN Performed By: #### 2 4344-4 ####[facility] LABORATORYCLIA [id number] [address] SET VENTILATOR RESPIRATORY RATE (BPM) 18 BPM Normal [facility] Comment on above: Order Comment: Speci men Type: VENOUS BLOOD SPECIMEN Performed By: #### 2 4344-4 ####[facility] LABORATORYCLIA [id number] [address] Sodium [Moles/Vol] 141 mmol/L Normal 136-144 [facility] Comment on above: Order Comment: Speci men Type: VENOUS BLOOD SPECIMEN Performed By: #### 2 4344-4 ####[facility] LABORATORYCLIA [id number] [address] HIV 1+2 Ab IA Qlon 2 HIV 1 and 2 Ab IA.rapid Nom Normal [facility] Comment on above: Order Comment: Speci men Type: BLOOD SPECIMEN Result Comment: Test not indicated. Performed By: #### 3 1201-7, TOXMG ####[facility] LABORATORYCLIA [id number] [address] HIV 1+2 Ab+HIV1 p24 Ag IA Ql Non-Reactive Normal Nonreactive [facility] Comment on above: Order Comment: Speci men Type: BLOOD SPECIMEN Result Comment: [place] Rev. Code 3701.243(E): This information has been [...] diagnoses. Performed By: #### 3 1201-7, TOXMG ####[facility] LABORATORYCLIA [id number] [address] OF [place] HIVINT Normal [facility] Comment on above: Order Comment: Speci men Type: BLOOD SPECIMEN Result Comment: No e vidence of HIV-1 or HIV-2 infection. Should recent infection be suspected, repeat testing may be considered 2-3 weeks after this draw. Performed By: #### 3 1201-7, TOXMG ####[facility] LABORATORYCLIA [id number] [address] [place] Magnesium SerPl-mCncon 06-03 Magnesium [Mass/Vol] 1.9 mg/dL Normal 1.7-2.3 [facility] Comment on above: Order Comment: Speci men Type: BLOOD SPECIMEN Performed By: #### 1 9123-9, 2777-1, 01241-0 ####[facility] LABORATORYCLIA [id number] [address] NUTRITIONon 06-03-2021 NUTRITION Normal [facility] Phosphate SerPl-mCncon 06-03 Phosphate [Mass/Vol] 1.9 mg/dL Low 2.7-4.8 [facility] Comment on above: Order Comment: Speci men Type: BLOOD SPECIMEN Performed By: #### 1 9123-9, 2777-1, 77834-3 ####[facility] LABORATORYCLIA [id number] [address] TOXOPLASMOSIS IGM AND IGG AB on 06-03-2021 TOXO IGG QUAL Negative Normal Negative [facility] Comment on above: Order Comment: Speci men Type: BLOOD SPECIMEN Result Comment: No s erological evidence of past exposure to Toxoplasma gondii. Cannot exclude recent infection if the specimen collected within 3-4 weeks after infection.Negative <6.4 IU/mLEquivocal 6.4-9.9 IU/mLPositive >=10.0 IU/mL Performed By: #### 3 1201-7, TOXMG ####[facility] LABORATORYCLIA [id number] [address] TOXO IGM QUAL Negative Normal Negative [facility] Comment on above: Order Comment: Speci men Type: BLOOD SPECIMEN Result Comment: No s erological evidence of recent exposure to Toxoplasma gondii.Negative <0.9 IndexEquivocal 0.9-0.99 IndexPositive >=1.0 Index Performed By: #### 3 1201-7, TOXMG ####[facility] LABORATORYCLIA [id number] [address] [place] US DVT LOWER BILon US DVT LOWER RAINER Normal [facility] XR CHEST 1V FRONTALon 2021 XR CHEST 1V FRONTAL Normal [facility] ARTERIAL BLOOD GASESon 06-02 Base excess Calc (Bld) [Moles/Vol] 2 mmol/L Normal 0-2 [facility] Comment on above: Order Comment: Speci men Type: ARTERIAL BLOOD SPECIMEN Performed By: #### A LLBG ####[facility] LABORATORYCLIA [id number] [address] STATES [facility] Body temperature 99.32 [degF] Normal [facility] Comment on above: Order Comment: Speci men Type: ARTERIAL BLOOD SPECIMEN Performed By: #### A LLBG ####[facility] LABORATORYCLIA [id number] [address] STATES [facility] CALCIUM IONIZED, PH CORRECTED 1.15 mmol/L Normal 1.08-1.30 [facility] Comment on above: Order Comment: Speci men Type: ARTERIAL BLOOD SPECIMEN Performed By: #### A LLBG ####[facility] LABORATORYCLIA [id number] [address] [place] Calcium.ionized (BldV) [Mass/Vol] 1.13 mmol/L Normal 1.08-1.30 [facility] Comment on above: Order Comment: Speci men Type: ARTERIAL BLOOD SPECIMEN Performed By: #### A LLBG ####[facility] LABORATORYCLIA [id number] [address] [facility] Carboxyhemoglobin (BldA) [Mass fraction] 1.4 % Normal 0.0-2.0 [facility] Comment on above: Order Comment: Speci men Type: ARTERIAL BLOOD SPECIMEN Result Comment: Carb oxyhemoglobin Reference Range for Smokers: 2.0-8.0% Performed By: #### A LLBG ####[facility]ATORYCLIA [id number] [address] CO2 (Bld) [Partial pressure] 39 mm Hg Normal 36-46 [facility] Comment on above: Order Comment: Speci men Type: ARTERIAL BLOOD SPECIMEN Performed By: #### A LLBG ####[facility]ATORYCLIA [id number] [address] CO2 [Moles/Vol] 23.4 mmol/L Normal 22-28 [facility] Comment on above: Order Comment: Speci men Type: ARTERIAL BLOOD SPECIMEN Performed By: #### A LLBG ####[facility]ATORYCLIA [id number] [address] CO2 adjusted to patient's actual temperature (Bld) [Partial pressure] 40 mmHg Normal 36-46 [facility] Comment on above: Order Comment: Speci men Type: ARTERIAL BLOOD SPECIMEN Performed By: #### A LLBG ####[facility] LABORATORYCLIA [id number] [address] Glucose [Mass/Vol] 156 mg/dL High 60-105 [facility] Comment on above: Order Comment: Speci men Type: ARTERIAL BLOOD SPECIMEN Performed By: #### A LLBG ####[facility]ATORYCLIA [id number] [address] [facility] HCO3 (Bld) [Moles/Vol] 26 mmol/L Normal 22-26 [facility] Comment on above: Order Comment: Speci men Type: ARTERIAL BLOOD SPECIMEN Performed By: #### A LLBG ####[facility]ATORYCLIA [id number] [address] Hematocrit (Bld) [Volume fraction] 33.9 % Low 39.0-51.0 [facility] Comment on above: Order Comment: Speci men Type: ARTERIAL BLOOD SPECIMEN Performed By: #### A LLBG ####[facility]ORATORYCLIA [id number] [address] [facility] Hemoglobin (Bld) [Mass/Vol] 11.0 g/dL Low 13.0-17.0 [facility] Comment on above: Order Comment: Speci men Type: ARTERIAL BLOOD SPECIMEN Performed By: #### A LLBG ####[facility]ORATORYCLIA [id number] [address] [facility] Methemoglobin (Bld) [Mass fraction] % Normal 0.0-1.5 [facility] Comment on above: Order Comment: Speci men Type: ARTERIAL BLOOD SPECIMEN Performed By: #### A LLBG ####[facility]ATORYCLIA [id number] [address] O2 THERAPY Ventilator Normal [facility] Comment on above: Order Comment: Speci men Type: ARTERIAL BLOOD SPECIMEN Performed By: #### A LLBG ####[facility]ATORYCLIA [id number] [address] Oxygen (Bld) [Partial pressure] 70 mm Hg Low 85-95 [facility] Comment on above: Order Comment: Speci men Type: ARTERIAL BLOOD SPECIMEN Performed By: #### A LLBG ####[facility]ATORYCLIA [id number] [address] Oxygen adjusted to patient's actual temperature (Bld) [Partial pressure] 72.2 mmHg Low 85-95 [facility] Comment on above: Order Comment: Speci men Type: ARTERIAL BLOOD SPECIMEN Performed By: #### A LLBG ####[facility]ATORYCLIA [id number] [address] OXYGEN SATURATION, ARTERIAL 96 % Normal 95-98 [facility] Comment on above: Order Comment: Speci men Type: ARTERIAL BLOOD SPECIMEN Performed By: #### A LLBG ####[facility]ATORYCLIA [id number] [address] [place] Oxyhemoglobin (BldA) [Mass fraction] 94 % Low 95-98 [facility] Comment on above: Order Comment: Speci men Type: ARTERIAL BLOOD SPECIMEN Performed By: #### A LLBG ####[facility] LABORATORYCLIA [id number] [address] pH (Bld) 7.43 [pH] Normal 7.35-7.45 [facility] Comment on above: Order Comment: Speci men Type: ARTERIAL BLOOD SPECIMEN Performed By: #### A LLBG ####[facility]ORYCLIA [id number] [address] pH adjusted to patient's actual temperature (Bld) 7.42 Normal 7.35-7.45 [facility] Comment on above: Order Comment: Speci men Type: ARTERIAL BLOOD SPECIMEN Performed By: #### A LLBG ####[facility] LABORATORYCLIA [id number] [address] Potassium [Moles/Vol] 2.6 mmol/L Low 3.5-5.0 [facility] Comment on above: Order Comment: Speci men Type: ARTERIAL BLOOD SPECIMEN Performed By: #### A LLBG ####[facility] LABORATORYCLIA [id number] [address] Sodium [Moles/Vol] 142 mmol/L Normal 136-144 [facility] Comment on above: Order Comment: Speci men Type: ARTERIAL BLOOD SPECIMEN Performed By: #### A LLBG ####[facility]ATORYCLIA [id number] [address] Ammonia Plas-sCncon 06-02-19 22 Ammonia (P) [Moles/Vol] 20 umol/L Normal 16-60 [facility] Comment on above: Order Comment: Speci men Type: BLOOD SPECIMEN Performed By: #### 1 6362-6 ####[facility]ATORYCLIA [id number] [address] Bacteria CSF Culton 06-02-19 22 Bacteria identified Cx Nom (CSF) CULTURE, CSF: No growth 14 days GRAM STAIN: No organisms seen Rare Polymorphonuclear leukocytes Gram stain performed on cytospun specimen. Normal [facility] Comment on above: Performed By: #### 6 06-4 ####[facility]ATORYCLIA [id number] [address] STATES OF [facility] Basic metabolic 2000 panelon 06-02-2021 Anion gap [Moles/Vol] 10 mmol/L Normal 9-18 [facility] Comment on above: Order Comment: Speci men Type: BLOOD SPECIMEN Performed By: #### 2 4321-2, , 2776-05 ####[facility]ATORYCLIA [id number] [address] [place] Calcium [Mass/Vol] 8.1 mg/dL Low 8.5-10.2 [facility] Comment on above: Order Comment: Speci men Type: BLOOD SPECIMEN Performed By: #### 2 4321-2, , 2776-05 ####[facility]ATORYCLIA [id number] [address] [place] Chloride [Moles/Vol] 108 mmol/L High 97-105 [facility] Comment on above: Order Comment: Speci men Type: BLOOD SPECIMEN Performed By: #### 2 4321-2, , 2776-05 ####[facility]ORYCLIA [id number] [address] [place] CO2 [Moles/Vol] 24 mmol/L Normal 22-30 [facility] Comment on above: Order Comment: Speci men Type: BLOOD SPECIMEN Performed By: #### 2 4321-2, , 2776-05 ####[facility]ORYCLIA [id number] [address] [place] Creatinine [Mass/Vol] 0.78 mg/dL Normal 0.73-1.22 [facility] Comment on above: Order Comment: Speci men Type: BLOOD SPECIMEN Performed By: #### 2 4321-2, , 2776-05 ####[facility]PITALIA [id number] [place] [address] [place] GFR/1.73 sq M.predicted MDRD (S/P/Bld) [Vol rate/Area] mL/min/{1.73_m2} Normal [facility] Comment on above: Order Comment: Speci [...] Performed By: #### 2 4321-2, , 2776-05 ####[facility]OSPITALIA [id number] [place] [id number] [place] Glucose [Mass/Vol] 162 mg/dL High 74-99 [facility] Comment on above: Order Comment: Speci men Type: BLOOD SPECIMEN Result Comment: The [place] Diabetes Association (ADA) provides guidance for cutoff [...] Standards of Medical Care in Diabetes 2016, [place] Diabetes Association. Diabetes Care. 2016.39(Suppl 1). Performed By: #### 2 4321-2, 26916-9, 2776-05 ####[facility] LABORATORYIA [id number] [place] [address] [place] Potassium [Moles/Vol] 2.7 mmol/L Low 3.7-5.1 [facility] Comment on above: Order Comment: Speci men Type: BLOOD SPECIMEN Performed By: #### 2 4321-2, , 2776-05 ####[facility] LABORATORYCLIA [id number] [address] Sodium [Moles/Vol] 142 mmol/L Normal 136-144 [facility] Comment on above: Order Comment: Speci men Type: BLOOD SPECIMEN Performed By: #### 2 4321-2, , 2776-05 ####[facility] LABORATORYCLIA [id number] [address] Urea nitrogen [Mass/Vol] 12 mg/dL Normal 9-24 [facility] Comment on above: Order Comment: Speci men Type: BLOOD SPECIMEN Performed By: #### 2 4321-2, , 2776-05 ####[facility]ORATORYCLIA [id number] [address] CBC panel Auto (Bld)on 06-02 Erythrocyte distribution width (RBC) [Ratio] 15.0 % Normal 11.5-15.0 [facility] Comment on above: Order Comment: Speci men Type: BLOOD SPECIMEN Performed By: #### 5 8410-2 ####[facility] LABORATORYCLIA [id number] [address] Hematocrit (Bld) [Volume fraction] 34.3 % Low 39.0-51.0 [facility] Comment on above: Order Comment: Speci men Type: BLOOD SPECIMEN Performed By: #### 5 8410-2 ####[facility] LABORATORYCLIA [id number] [address] Hemoglobin (Bld) [Mass/Vol] 10.3 g/dL Low 13.0-17.0 [facility] Comment on above: Order Comment: Speci men Type: BLOOD SPECIMEN Performed By: #### 5 8410-2 ####[facility] LABORATORYCLIA [id number] [address] MCH (RBC) [Entitic mass] 27.0 pg Normal 26.0-34.0 [facility] Comment on above: Order Comment: Speci men Type: BLOOD SPECIMEN Performed By: #### 5 8410-2 ####[facility] LABORATORYCLIA [id number] [address] MCHC (RBC) [Mass/Vol] 30.0 g/dL Low 30.5-36.0 [facility] Comment on above: Order Comment: Speci men Type: BLOOD SPECIMEN Performed By: #### 5 8410-2 ####[facility] LABORATORYCLIA [id number] [address] MCV (RBC) [Entitic vol] 90.0 fL Normal 80.0-100.0 [facility] Comment on above: Order Comment: Speci men Type: BLOOD SPECIMEN Performed By: #### 5 8410-2 ####[facility] LABORATORYCLIA [id number] [address] Nucleated RBC (Bld) [#/Vol] 10*3/uL Normal <0.01 [facility] Comment on above: Order Comment: Speci men Type: BLOOD SPECIMEN Performed By: #### 5 8410-2 ####[facility] LABORATORYCLIA [id number] [address] Platelet mean volume (Bld) [Entitic vol] 10.2 fL Normal 9.0-12.7 [facility] Comment on above: Order Comment: Speci men Type: BLOOD SPECIMEN Performed By: #### 5 8410-2 ####[facility] LABORATORYCLIA [id number] [address] Platelets (Bld) [#/Vol] 194 10*3/uL Normal 150-400 [facility] Comment on above: Order Comment: Speci men Type: BLOOD SPECIMEN Performed By: #### 5 8410-2 ####[facility] LABORATORYCLIA [id number] [address] OF [facility] RBC (Bld) [#/Vol] 3.81 10*6/uL Low 4.20-6.00 [facility] Comment on above: Order Comment: Speci men Type: BLOOD SPECIMEN Performed By: #### 5 8410-2 ####[facility] LABORATORYCLIA [id number] [address] WBC (Bld) [#/Vol] 9.22 10*3/uL Normal 3.70-11.00 [facility] Comment on above: Order Comment: Speci men Type: BLOOD SPECIMEN Performed By: #### 5 8410-2 ####[facility] LABORATORYCLIA [id number] [address] CONSULT PROGon 06-02-2021 CONSULT PROG Normal [facility] CSF MANUAL DIFFon 06-02-2021 DIF TTL, CSF 25 cells counted Normal [facility] Comment on above: Order Comment: Speci men Type: CEREBROSPINAL FLUID Performed By: #### 3 4563-7, [id number], [id number] ####[facility] LABORATORYCLIA [id number] [address] [place] LYMPH%, CSF 4 % Low 50-90 [facility] Comment on above: Order Comment: Speci men Type: CEREBROSPINAL FLUID Performed By: #### 3 4563-7, [id number], [id number] ####[facility] LABORATORYCLIA [id number] [address] [place] MACRO%, CSF 4 % High <1 [facility] Comment on above: Order Comment: Speci men Type: CEREBROSPINAL FLUID Performed By: #### 3 4563-7, [id number], [id number] ####[facility]ORYCLIA [id number] [address] [place] MONO%, CSF 20 % Normal 10-50 [facility] Comment on above: Order Comment: Speci men Type: CEREBROSPINAL FLUID Performed By: #### 3 4563-7, [id number], [id number] ####[facility] LABORATORYCLIA [id number] [address] STATES [place] NEUT%, CSF 72 % High 0-3 [facility] Comment on above: Order Comment: Speci men Type: CEREBROSPINAL FLUID Performed By: #### 3 4563-7, [id number], [id number] ####[facility] LABORATORYCLIA [id number] [address] CSF PATHOLOGIST INTERP (LAB REFLEX ORDER-NO BILL)on 06-02-2021 CSF STAFF REVIEW Negative Normal [facility] Comment on above: Order Comment: Speci men Type: CEREBROSPINAL FLUID Performed By: #### 3 4563-7, [id number], [id number] ####[facility] LABORATORYCLIA [id number] [address] Pathologist name Reviewed by Amador Stevens MD [facility] Comment on above: Order Comment: Speci men Type: CEREBROSPINAL FLUID Performed By: #### 3 4563-7, [id number], [id number] ####[facility] LABORATORYCLIA [id number] [address] Cell count panel (CSF)on Clarity (CSF) Clear Normal Clear [facility] Comment on above: Order Comment: Speci men Type: CEREBROSPINAL FLUID Performed By: #### 3 4563-7, [id number], [id number] ####[facility] LABORATORYCLIA [id number] [address] Clarity (Unsp spec) Not Indicated Normal Clear [facility] Comment on above: Order Comment: Speci men Type: CEREBROSPINAL FLUID Performed By: #### 3 4563-7, [id number], [id number] ####[facility]ORYCLIA [id number] [address] Color (CSF) Colorless Normal Colorless [facility] Comment on above: Order Comment: Speci men Type: CEREBROSPINAL FLUID Performed By: #### 3 4563-7, [id number], [id number] ####[facility]ORATORYCLIA [id number] [address] Color (Spun CSF) Not Indicated Normal Colorless [facility] Comment on above: Order Comment: Speci men Type: CEREBROSPINAL FLUID Performed By: #### 3 4563-7, [id number], [id number] ####[facility] LABORATORYCLIA [id number] [address] CSF TUBE NUMBER Sterile Container Normal [facility] Comment on above: Order Comment: Speci men Type: CEREBROSPINAL FLUID Performed By: #### 3 4563-7, [id number], [id number] ####[facility]ORATORYCLIA [id number] [address] RBC Manual cnt (CSF) [#/Vol] 117 cells/uL High 0-5 [facility] Comment on above: Order Comment: Speci men Type: CEREBROSPINAL FLUID Performed By: #### 3 4563-7, [id number], [id number] ####[facility]ORATORYCLIA [id number] [address] WBC Manual cnt (CSF) [#/Vol] 1 cells/uL Normal 0-5 [facility] Comment on above: Order Comment: Speci men Type: CEREBROSPINAL FLUID Performed By: #### 3 4563-7, [id number], [id number] ####[facility]ORATORYCLIA [id number] [address] Glucose CSF-ncon 2 Glucose (CSF) [Mass/Vol] 82 mg/dL High 40-70 [facility] Comment on above: Order Comment: Speci men Type: CEREBROSPINAL FLUID Result Comment: Lumb ar CSF glucose values of healthy patients are approximately 60% of the plasma values and must always be compared with a concurrently measured plasma value for adequate clinical interpretation.References: 1. Glucose HK (GLUC3) [package insert V 12.0 American]. [employer], [place], [place]. September 2015. 2. Michelle Moore, Loki, H. (2015). Chapter 7: Glucose and Lactate. F. Irina et al.(eds.), Cerebrospinal Fluid in Clinical Neurology. [place]: [employer]. Performed By: #### 2 342-4 ####[facility]ATORYCLIA [id number] [address] HEPATIC FUNCTION PNLon 06-02 Albumin [Mass/Vol] 3.2 g/dL Low 3.9-4.9 [facility] Comment on above: Order Comment: Speci men Type: BLOOD SPECIMEN Performed By: #### H [place], 72680-9 ####[facility]ORYCLIA [id number] [address] ALP [Catalytic activity/Vol] 67 U/L Normal 38-113 [facility] Comment on above: Order Comment: Speci men Type: BLOOD SPECIMEN Performed By: #### H FP, 88735-5 ####[facility]ORYCLIA [id number] [address] ALT With P-5'-P [Catalytic activity/Vol] 16 U/L Normal 10-54 [facility] Comment on above: Order Comment: Speci men Type: BLOOD SPECIMEN Performed By: #### [place], 59245-0 ####[facility]ORYCLIA [id number] [address] AST With P-5'-P [Catalytic activity/Vol] 25 U/L Normal 14-40 [facility] Comment on above: Order Comment: Speci men Type: BLOOD SPECIMEN Performed By: #### H FP, 08876-9 ####[facility]ORYCLIA [id number] [address] Bilirubin [Mass/Vol] 0.2 mg/dL Normal 0.2-1.3 [facility] Comment on above: Order Comment: Speci men Type: BLOOD SPECIMEN Performed By: #### [place], 60187-5 ####[facility]ORYCLIA [id number] [address] Bilirubin.conjugated [Mass/Vol] mg/dL Normal <0.2 [facility] Comment on above: Order Comment: Speci men Type: BLOOD SPECIMEN Performed By: #### Marin KATHIE, 22157-6 ####[facility] LABORATORYCLIA [id number] [address] Protein [Mass/Vol] 5.8 g/dL Low 6.3-8.0 [facility] Comment on above: Order Comment: Speci men Type: BLOOD SPECIMEN Performed By: #### Marin KATHIE, 61410-8 ####[facility] LABORATORYCLIA [id number] [address] [place] MRI BRAIN WO/W IVCONon 06-02 MRI BRAIN WO/W IVCON Normal [facility] Magnesium SerPl-mCncon 06-02 Magnesium [Mass/Vol] 2.0 mg/dL Normal 1.7-2.3 [facility] Comment on above: Order Comment: Speci men Type: BLOOD SPECIMEN Performed By: #### 2 4321-2, 99119-6, 2777-1 ####[facility]ORATORYCLIA [id number] [address] NT-proBNP SerPl-mCncon 06-02 Natriuretic peptide.B prohormone N-Terminal [Mass/Vol] 296 pg/mL High <125 [facility] Comment on above: Order Comment: Speci men Type: BLOOD SPECIMEN Performed By: #### Marin KATHIE, 38203-5 ####[facility] LABORATORYCLIA [id number] [address] [place] POTASSIUM BLDon 06-02-2021 Potassium [Moles/Vol] 3.2 mmol/L Low 3.7-5.1 [facility] Comment on above: Order Comment: Speci men Type: BLOOD SPECIMEN Performed By: #### K 1 ####[facility] LABORATORYCLIA [id number] [address] [place] Phosphate SerPl-mCncon 06-02 Phosphate [Mass/Vol] 2.1 mg/dL Low 2.7-4.8 [facility] Comment on above: Order Comment: Speci men Type: BLOOD SPECIMEN Performed By: #### 2 4321-2, 67979-3, 2777-1 ####[facility] LABORATORYCLIA [id number] [address] STATES OF [facility] Vancomycin random [Mass/Vol] on 06-02-2021 Vancomycin [Mass/Vol] 18.8 ug/mL Normal 10.0-20.0 [facility] Comment on above: Order Comment: Speci men Type: BLOOD SPECIMEN Result Comment: Refe rence ranges and high/low indicator flags are provided as general guidelines only. The treating physician must determine appropriate target levels/dosing based on the specific clinical situation. Performed By: #### 4 091-5 ####[facility] LABORATORYCLIA [id number] [address] [place] ALLIED HEALTHon 06-01-2021 ALLIED HEALTH Normal [facility] ALLIED HEALTH Normal [facility] ALLIED HEALTH Normal [facility] ARTERIAL BLOOD GASESon 06-01 Base excess Calc (Bld) [Moles/Vol] 1 mmol/L Normal 0-2 [facility] Comment on above: Order Comment: Speci men Type: ARTERIAL BLOOD SPECIMEN Performed By: #### A LLBG ####[facility] LABORATORYCLIA [id number] [address] [facility] Body temperature 97.52 [degF] Normal [facility] Comment on above: Order Comment: Speci men Type: ARTERIAL BLOOD SPECIMEN Performed By: #### A LLBG ####[facility] LABORATORYCLIA [id number] [address] [facility] CALCIUM IONIZED, PH CORRECTED 1.13 mmol/L Normal 1.08-1.30 [facility] Comment on above: Order Comment: Speci men Type: ARTERIAL BLOOD SPECIMEN Performed By: #### A LLBG ####[facility] LABORATORYCLIA [id number] [address] [place] Calcium.ionized (BldV) [Mass/Vol] 1.12 mmol/L Normal 1.08-1.30 [facility] Comment on above: Order Comment: Speci men Type: ARTERIAL BLOOD SPECIMEN Performed By: #### A LLBG ####[facility]ATORYCLIA [id number] [address] Carboxyhemoglobin (BldA) [Mass fraction] 1.6 % Normal 0.0-2.0 [facility] Comment on above: Order Comment: Speci men Type: ARTERIAL BLOOD SPECIMEN Result Comment: Carb oxyhemoglobin Reference Range for Smokers: 2.0-8.0% Performed By: #### A LLBG ####[facility] LABORATORYCLIA [id number] [address] CO2 (Bld) [Partial pressure] 41 mm Hg Normal 36-46 [facility] Comment on above: Order Comment: Speci men Type: ARTERIAL BLOOD SPECIMEN Performed By: #### A LLBG ####[facility]ATORYCLIA [id number] [address] CO2 [Moles/Vol] 23.0 mmol/L Normal 22-28 [facility] Comment on above: Order Comment: Speci men Type: ARTERIAL BLOOD SPECIMEN Performed By: #### A LLBG ####[facility]ATORYCLIA [id number] [address] CO2 adjusted to patient's actual temperature (Bld) [Partial pressure] 40 mmHg Normal 36-46 [facility] Comment on above: Order Comment: Speci men Type: ARTERIAL BLOOD SPECIMEN Performed By: #### A LLBG ####[facility]ORATORYCLIA [id number] [address] [place] FIO2 40 % Normal [facility] Comment on above: Order Comment: Speci men Type: ARTERIAL BLOOD SPECIMEN Performed By: #### A LLBG ####[facility]ATORYCLIA [id number] [address] [place] Glucose [Mass/Vol] 127 mg/dL High 60-105 [facility] Comment on above: Order Comment: Speci men Type: ARTERIAL BLOOD SPECIMEN Performed By: #### A LLBG ####[facility]ATORYCLIA [id number] [address] HCO3 (Bld) [Moles/Vol] 25 mmol/L Normal 22-26 [facility] Comment on above: Order Comment: Speci men Type: ARTERIAL BLOOD SPECIMEN Performed By: #### A LLBG ####[facility]ORATORYCLIA [id number] [address] Hematocrit (Bld) [Volume fraction] 33.7 % Low 39.0-51.0 [facility] Comment on above: Order Comment: Speci men Type: ARTERIAL BLOOD SPECIMEN Performed By: #### A LLBG ####[facility]ATORYCLIA [id number] [address] Hemoglobin (Bld) [Mass/Vol] 10.9 g/dL Low 13.0-17.0 [facility] Comment on above: Order Comment: Speci men Type: ARTERIAL BLOOD SPECIMEN Performed By: #### A LLBG ####[facility]ATORYCLIA [id number] [address] INHALED TIDAL VOLUME (ML) 500 Normal [facility] Comment on above: Order Comment: Speci men Type: ARTERIAL BLOOD SPECIMEN Performed By: #### A LLBG ####[facility]ATORYCLIA [id number] [address] INVASIVE VENTILATOR MODE PRVC=Pressure Regulated Volume Control Normal [facility] Comment on above: Order Comment: Speci men Type: ARTERIAL BLOOD SPECIMEN Performed By: #### A LLBG ####[facility]ATORYCLIA [id number] [address] Methemoglobin (Bld) [Mass fraction] % Normal 0.0-1.5 [facility] Comment on above: Order Comment: Speci men Type: ARTERIAL BLOOD SPECIMEN Performed By: #### A LLBG ####[facility]ORATORYCLIA [id number] [address] O2 THERAPY Ventilator Normal [facility] Comment on above: Order Comment: Speci men Type: ARTERIAL BLOOD SPECIMEN Performed By: #### A LLBG ####[facility]ATORYCLIA [id number] [address] Oxygen (Bld) [Partial pressure] 64 mm Hg Low 85-95 [facility] Comment on above: Order Comment: Speci men Type: ARTERIAL BLOOD SPECIMEN Performed By: #### A LLBG ####[facility]ATORYCLIA [id number] [address] Oxygen adjusted to patient's actual temperature (Bld) [Partial pressure] 61.8 mmHg Low 85-95 [facility] Comment on above: Order Comment: Speci men Type: ARTERIAL BLOOD SPECIMEN Performed By: #### A LLBG ####[facility]ATORYCLIA [id number] [address] OXYGEN SATURATION, ARTERIAL 94 % Low 95-98 [facility] Comment on above: Order Comment: Speci men Type: ARTERIAL BLOOD SPECIMEN Performed By: #### A LLBG ####[facility]ATORYCLIA [id number] [address] [facility] Oxyhemoglobin (BldA) [Mass fraction] 92 % Low 95-98 [facility] Comment on above: Order Comment: Speci men Type: ARTERIAL BLOOD SPECIMEN Performed By: #### A LLBG ####[facility]ATORYCLIA [id number] [address] [place] PEEP/CPAP 5 cmH2O Normal [facility] Comment on above: Order Comment: Speci men Type: ARTERIAL BLOOD SPECIMEN Performed By: #### A LLBG ####[facility]ATORYCLIA [id number] [address] pH (Bld) 7.40 [pH] Normal 7.35-7.45 [facility] Comment on above: Order Comment: Speci men Type: ARTERIAL BLOOD SPECIMEN Performed By: #### A LLBG ####[facility]ATORYCLIA [id number] [address] pH adjusted to patient's actual temperature (Bld) 7.41 Normal 7.35-7.45 [facility] Comment on above: Order Comment: Speci men Type: ARTERIAL BLOOD SPECIMEN Performed By: #### A LLBG ####[facility]ATORYCLIA [id number] [address] Potassium [Moles/Vol] 3.1 mmol/L Low 3.5-5.0 [facility] Comment on above: Order Comment: Speci men Type: ARTERIAL BLOOD SPECIMEN Performed By: #### A LLBG ####[facility]ATORYCLIA [id number] [address] SET VENTILATOR RESPIRATORY RATE (BPM) 18 BPM Normal [facility] Comment on above: Order Comment: Speci men Type: ARTERIAL BLOOD SPECIMEN Performed By: #### A LLBG ####[facility]ATORYCLIA [id number] [address] Sodium [Moles/Vol] 141 mmol/L Normal 136-144 [facility] Comment on above: Order Comment: Speci men Type: ARTERIAL BLOOD SPECIMEN Performed By: #### A LLBG ####[facility]ATORYCLIA [id number] [address] [place] BASE DEFICIT, ARTERIAL -1.0 mmol/L Normal -2-[address] [facility] Comment on above: Order Comment: Speci men Type: ARTERIAL BLOOD SPECIMEN Performed By: #### A LLBG ####[facility]ATORYCLIA [id number] [address] Body temperature 98.24 [degF] Normal [facility] Comment on above: Order Comment: Speci men Type: ARTERIAL BLOOD SPECIMEN Performed By: #### A LLBG ####[facility]ATORYCLIA [id number] [address] CALCIUM IONIZED, PH CORRECTED 1.08 mmol/L Normal 1.08-1.30 [facility] Comment on above: Order Comment: Speci men Type: ARTERIAL BLOOD SPECIMEN Performed By: #### A LLBG ####[facility]ORYCLIA [id number] [address] Calcium.ionized (BldV) [Mass/Vol] 1.15 mmol/L Normal 1.08-1.30 [facility] Comment on above: Order Comment: Speci men Type: ARTERIAL BLOOD SPECIMEN Performed By: #### A LLBG ####[facility]ORYCLIA [id number] [address] Carboxyhemoglobin (BldA) [Mass fraction] 1.4 % Normal 0.0-2.0 [facility] Comment on above: Order Comment: Speci men Type: ARTERIAL BLOOD SPECIMEN Result Comment: Carb oxyhemoglobin Reference Range for Smokers: 2.0-8.0% Performed By: #### A LLBG ####[facility]ORYCLIA [id number] [address] CO2 (Bld) [Partial pressure] 59 mm Hg High 36-46 [facility] Comment on above: Order Comment: Speci men Type: ARTERIAL BLOOD SPECIMEN Performed By: #### A LLBG ####[facility]ORYCLIA [id number] [address] CO2 [Moles/Vol] 24.5 mmol/L Normal 22-28 [facility] Comment on above: Order Comment: Speci men Type: ARTERIAL BLOOD SPECIMEN Performed By: #### A LLBG ####[facility]ATORYCLIA [id number] [address] CO2 adjusted to patient's actual temperature (Bld) [Partial pressure] 58 mmHg High 36-46 [facility] Comment on above: Order Comment: Speci men Type: ARTERIAL BLOOD SPECIMEN Performed By: #### A LLBG ####[facility]ATORYCLIA [id number] [address] [place] FIO2 40 % Normal [facility] Comment on above: Order Comment: Speci men Type: ARTERIAL BLOOD SPECIMEN Performed By: #### A LLBG ####[facility] LABORATORYCLIA [id number] [address] Glucose [Mass/Vol] 128 mg/dL High 60-105 [facility] Comment on above: Order Comment: Speci men Type: ARTERIAL BLOOD SPECIMEN Performed By: #### A LLBG ####[facility]ORYCLIA [id number] [address] [place] HCO3 (Bld) [Moles/Vol] 26 mmol/L Normal 22-26 [facility] Comment on above: Order Comment: Speci men Type: ARTERIAL BLOOD SPECIMEN Performed By: #### A LLBG ####[facility] LABORATORYCLIA [id number] [address] Hematocrit (Bld) [Volume fraction] 35.6 % Low 39.0-51.0 [facility] Comment on above: Order Comment: Speci men Type: ARTERIAL BLOOD SPECIMEN Performed By: #### A LLBG ####[facility] LABORATORYCLIA [id number] [address] [place] Hemoglobin (Bld) [Mass/Vol] 11.5 g/dL Low 13.0-17.0 [facility] Comment on above: Order Comment: Speci men Type: ARTERIAL BLOOD SPECIMEN Performed By: #### A LLBG ####[facility] LABORATORYCLIA [id number] [address] INHALED TIDAL VOLUME (ML) 500 Normal [facility] Comment on above: Order Comment: Speci men Type: ARTERIAL BLOOD SPECIMEN Performed By: #### A LLBG ####[facility]ATORYCLIA [id number] [address] INVASIVE VENTILATOR MODE PRVC=Pressure Regulated Volume Control [facility] Comment on above: Order Comment: Speci men Type: ARTERIAL BLOOD SPECIMEN Performed By: #### A LLBG ####[facility]ATORYCLIA [id number] [address] Methemoglobin (Bld) [Mass fraction] % Normal 0.0-1.5 [facility] Comment on above: Order Comment: Speci men Type: ARTERIAL BLOOD SPECIMEN Performed By: #### A LLBG ####[facility]ATORYCLIA [id number] [address] [place] O2 THERAPY Ventilator Normal [facility] Comment on above: Order Comment: Speci men Type: ARTERIAL BLOOD SPECIMEN Performed By: #### A LLBG ####[facility]ORYCLIA [id number] [address] [place] Oxygen (Bld) [Partial pressure] 88 mm Hg Normal 85-95 [facility] Comment on above: Order Comment: Speci men Type: ARTERIAL BLOOD SPECIMEN Performed By: #### A LLBG ####[facility]ORYCLIA [id number] [address] [facility] Oxygen adjusted to patient's actual temperature (Bld) [Partial pressure] 86.5 mmHg Normal 85-95 [facility] Comment on above: Order Comment: Speci men Type: ARTERIAL BLOOD SPECIMEN Performed By: #### A LLBG ####[facility]ORYCLIA [id number] [address] [facility] OXYGEN SATURATION, ARTERIAL 95 % Normal 95-98 [facility] Comment on above: Order Comment: Speci men Type: ARTERIAL BLOOD SPECIMEN Performed By: #### A LLBG ####[facility]ORYCLIA [id number] [address] Oxyhemoglobin (BldA) [Mass fraction] 93 % Low 95-98 [facility] Comment on above: Order Comment: Speci men Type: ARTERIAL BLOOD SPECIMEN Performed By: #### A LLBG ####[facility]ORYCLIA [id number] [address] [place] PEEP/CPAP 5 cmH2O Normal [facility] Comment on above: Order Comment: Speci men Type: ARTERIAL BLOOD SPECIMEN Performed By: #### A LLBG ####[facility]ORYCLIA [id number] [address] pH (Bld) 7.27 [pH] Low 7.35-7.45 [facility] Comment on above: Order Comment: Speci men Type: ARTERIAL BLOOD SPECIMEN Performed By: #### A LLBG ####[facility]ORYCLIA [id number] [address] pH adjusted to patient's actual temperature (Bld) 7.28 Low 7.35-7.45 [facility] Comment on above: Order Comment: Speci men Type: ARTERIAL BLOOD SPECIMEN Performed By: #### A LLBG ####[facility] LABORATORYCLIA [id number] [address] Potassium [Moles/Vol] 3.3 mmol/L Low 3.5-5.0 [facility] Comment on above: Order Comment: Speci men Type: ARTERIAL BLOOD SPECIMEN Performed By: #### A LLBG ####[facility]ORYCLIA [id number] [address] SET VENTILATOR RESPIRATORY RATE (BPM) 14 BPM Normal [facility] Comment on above: Order Comment: Speci men Type: ARTERIAL BLOOD SPECIMEN Performed By: #### A LLBG ####[facility]ORYCLIA [id number] [address] Sodium [Moles/Vol] 141 mmol/L Normal 136-144 [facility] Comment on above: Order Comment: Speci men Type: ARTERIAL BLOOD SPECIMEN Performed By: #### A LLBG ####[facility]ORYCLIA [id number] [address] Bacteria CSF Culton 06-01-19 22 Bacteria identified Cx Nom (CSF) CULTURE, CSF: No growth 14 days GRAM STAIN: No organisms seen Rare Polymorphonuclear leukocytes Moderate Red Blood Cells Gram stain performed on cytospun specimen. Normal [facility] Comment on above: Performed By: #### 6 06-4 ####[facility]ATORYCLIA [id number] [address] [place] Bacteria Spec Resp Culton Bacteria identified Respiratory culture Nom (Unsp spec) CULTURE, RESPIRATORY: No growth 2 days GRAM STAIN: No organisms seen No Polymorphonuclear Leukocytes Normal [facility] Comment on above: Performed By: #### 3 2355-0 ####[facility] LABORATORYCLIA [id number] [address] [facility] Basic metabolic 2000 panelon 06-01-2021 Anion gap [Moles/Vol] 8 mmol/L Low 9-18 [facility] Comment on above: Order Comment: Speci men Type: BLOOD SPECIMEN Performed By: #### 2 4321-2, , 2776-05 ####[facility] LABORATORYCLIA [id number] [address] [facility] Calcium [Mass/Vol] 7.8 mg/dL Low 8.5-10.2 [facility] Comment on above: Order Comment: Speci men Type: BLOOD SPECIMEN Performed By: #### 2 4321-2, , 2776-05 ####[facility]ORYCLIA [id number] [address] [facility] Chloride [Moles/Vol] 109 mmol/L High 97-105 [facility] Comment on above: Order Comment: Speci men Type: BLOOD SPECIMEN Performed By: #### 2 4321-2, , 2776-05 ####[facility]ORYCLIA [id number] [address] [place] CO2 [Moles/Vol] 26 mmol/L Normal 22-30 [facility] Comment on above: Order Comment: Speci men Type: BLOOD SPECIMEN Performed By: #### 2 4321-2, , 2776-05 ####[facility]ATORYCLIA [id number] [place] [address] [place] Creatinine [Mass/Vol] 0.82 mg/dL Normal 0.73-1.22 [facility] Comment on above: Order Comment: Speci men Type: BLOOD SPECIMEN Performed By: #### 2 4321-2, , 2776-05 ####[facility]ELCLIA [id number] [place] [id number] [place] GFR/1.73 sq M.predicted MDRD (S/P/Bld) [Vol rate/Area] mL/min/{1.73_m2} Normal [facility] Comment on above: Order Comment: Speci [...] Performed By: #### 2 4321-2, , 2776-05 ####[facility] [id number] [place] [id number] [place] Glucose [Mass/Vol] 105 mg/dL High 74-99 [facility] Comment on above: Order Comment: Speci men Type: BLOOD SPECIMEN Result Comment: The [place] Diabetes Association (ADA) provides guidance for cutoff [...] Standards of Medical Care in Diabetes 2016, [place] Diabetes Association. Diabetes Care. 2016.39(Suppl 1). Performed By: #### 2 4321-2, , 2776-05 ####[facility] LABORATORYCLIA [id number] [place], [place] [address] [place] [address] [facility] Potassium [Moles/Vol] 3.8 mmol/L Normal 3.7-5.1 [facility] Comment on above: Order Comment: Speci men Type: BLOOD SPECIMEN Performed By: #### 2 4321-2, 03074-0, 2776-05 ####[facility]ATORYCLIA [id number] [address] STATES [facility] Sodium [Moles/Vol] 143 mmol/L Normal 136-144 [facility] Comment on above: Order Comment: Speci men Type: BLOOD SPECIMEN Performed By: #### 2 4321-2, , 2776-05 ####[facility]ORATORYCLIA [id number] [address] STATES [facility] Urea nitrogen [Mass/Vol] 15 mg/dL Normal 9-24 [facility] Comment on above: Order Comment: Speci men Type: BLOOD SPECIMEN Performed By: #### 2 4321-2, , 2776-05 ####[facility]ORATORYCLIA [id number] [address] CBC panel Auto (Bld)on 06-01 Erythrocyte distribution width (RBC) [Ratio] 15.4 % High 11.5-15.0 [facility] Comment on above: Order Comment: Speci men Type: BLOOD SPECIMEN Performed By: #### 5 8410-2 ####[facility]ORATORYCLIA [id number] [address] Hematocrit (Bld) [Volume fraction] 38.4 % Low 39.0-51.0 [facility] Comment on above: Order Comment: Speci men Type: BLOOD SPECIMEN Performed By: #### 5 8410-2 ####[facility]ORATORYCLIA [id number] [address] [place] Hemoglobin (Bld) [Mass/Vol] 11.1 g/dL Low 13.0-17.0 [facility] Comment on above: Order Comment: Speci men Type: BLOOD SPECIMEN Performed By: #### 5 8410-2 ####[facility]ORATORYCLIA [id number] [address] MCH (RBC) [Entitic mass] 26.9 pg Normal 26.0-34.0 [facility] Comment on above: Order Comment: Speci men Type: BLOOD SPECIMEN Performed By: #### 5 8410-2 ####[facility]ORATORYCLIA [id number] [address] MCHC (RBC) [Mass/Vol] 28.9 g/dL Low 30.5-36.0 [facility] Comment on above: Order Comment: Speci men Type: BLOOD SPECIMEN Performed By: #### 5 8410-2 ####[facility]ORATORYCLIA [id number] [address] MCV (RBC) [Entitic vol] 93.2 fL Normal 80.0-100.0 [facility] Comment on above: Order Comment: Speci men Type: BLOOD SPECIMEN Performed By: #### 5 8410-2 ####[facility]ORATORYCLIA [id number] [address] Nucleated RBC (Bld) [#/Vol] 10*3/uL Normal <0.01 [facility] Comment on above: Order Comment: Speci men Type: BLOOD SPECIMEN Performed By: #### 5 8410-2 ####[facility]ORATORYCLIA [id number] [address] Platelet mean volume (Bld) [Entitic vol] 10.2 fL Normal 9.0-12.7 [facility] Comment on above: Order Comment: Speci men Type: BLOOD SPECIMEN Performed By: #### 5 8410-2 ####[facility]ORATORYCLIA [id number] [address] Platelets (Bld) [#/Vol] 231 10*3/uL Normal 150-400 [facility] Comment on above: Order Comment: Speci men Type: BLOOD SPECIMEN Performed By: #### 5 8410-2 ####[facility]ORATORYCLIA [id number] [address] [facility] RBC (Bld) [#/Vol] 4.12 10*6/uL Low 4.20-6.00 [facility] Comment on above: Order Comment: Speci men Type: BLOOD SPECIMEN Performed By: #### 5 8410-2 ####[facility]ORATORYCLIA [id number] [address] WBC (Bld) [#/Vol] 10.99 10*3/uL Normal 3.70-11.00 [facility] Comment on above: Order Comment: Speci men Type: BLOOD SPECIMEN Performed By: #### 5 8410-2 ####[facility]ORATORYCLIA [id number] [address] CONSULT PROGon 06-01-2021 CONSULT PROG Normal [facility] CSF MANUAL DIFFon 06-01-2021 DIF TTL, CSF 100 cells counted Normal [facility] Comment on above: Order Comment: Speci men Type: CEREBROSPINAL FLUID Performed By: #### 3 4563-7, [id number] ####[facility]ORATORYCLIA [id number] [address] LYMPH%, CSF 11 % Low 50-90 [facility] Comment on above: Order Comment: Speci men Type: CEREBROSPINAL FLUID Performed By: #### 3 4563-7, [id number] ####[facility]ORYCLIA [id number] [address] [place] MONO%, CSF 10 % Normal 10-50 [facility] Comment on above: Order Comment: Speci men Type: CEREBROSPINAL FLUID Performed By: #### 3 4563-7, [id number] ####[facility]ORYCLIA [id number] [address] [place] NEUT%, CSF 79 % High 0-3 [facility] Comment on above: Order Comment: Speci men Type: CEREBROSPINAL FLUID Performed By: #### 3 4563-7, [id number] ####[facility] LABORATORYCLIA [id number] [address] BRAIN WO IVCONon 06-01-19 CT BRAIN WO IVCON Normal [facility] Cell count panel (CSF)on Clarity (CSF) Clear Normal Clear [facility] Comment on above: Order Comment: Speci men Type: CEREBROSPINAL FLUID Performed By: #### 3 4563-7, [id number] ####[facility]ORATORYCLIA [id number] [address] Clarity (Unsp spec) Not Indicated Normal Clear [facility] Comment on above: Order Comment: Speci men Type: CEREBROSPINAL FLUID Performed By: #### 3 4563-7, [id number] ####[facility]ORATORYCLIA [id number] [address] Color (CSF) Colorless Normal Colorless [facility] Comment on above: Order Comment: Speci men Type: CEREBROSPINAL FLUID Performed By: #### 3 4563-7, [id number] ####[facility]ORATORYCLIA [id number] [address] Color (Spun CSF) Not Indicated Normal Colorless [facility] Comment on above: Order Comment: Speci men Type: CEREBROSPINAL FLUID Performed By: #### 3 4563-7, [id number] ####[facility]ORYCLIA [id number] [address] CSF TUBE NUMBER Sterile Container Normal [facility] Comment on above: Order Comment: Speci men Type: CEREBROSPINAL FLUID Performed By: #### 3 4563-7, [id number] ####[facility]ATORYCLIA [id number] [address] RBC Manual cnt (CSF) [#/Vol] 171 cells/uL High 0-5 [facility] Comment on above: Order Comment: Speci men Type: CEREBROSPINAL FLUID Performed By: #### 3 4563-7, [id number] ####[facility] LABORATORYCLIA [id number] [address] WBC Manual cnt (CSF) [#/Vol] 5 cells/uL Normal 0-5 [facility] Comment on above: Order Comment: Speci men Type: CEREBROSPINAL FLUID Performed By: #### 3 4563-7, [id number] ####[facility] [facility] LABORATORYCLIA [id number] [address] FUNGAL CULTUREon 06-01-2021 FUNGAL CULTURE CULTURE, FUNGAL: No Fungus isolated after 28 days Normal [facility] Comment on above: Performed By: #### F CUL ####[facility] LABORATORYCLIA [id number] [address] [place] Glucose CSF-mCncon 2 Glucose (CSF) [Mass/Vol] 78 mg/dL High 40-70 [facility] Comment on above: Order Comment: Speci men Type: CEREBROSPINAL FLUID Result Comment: Lumb ar CSF glucose values of healthy patients are approximately 60% of the plasma values and must always be compared with a concurrently measured plasma value for adequate clinical interpretation.References: 1. Glucose HK (GLUC3) [package insert V 12.0 American]. [facility], [place], [place]. September 2015. 2. Michelle Moore, Loki H. (2015). Chapter 7: Glucose and Lactate. F. Irina rose al.(eds.), Cerebrospinal Fluid in Clinical Neurology. [place]: [employer]. Performed By: #### 2 342-4, 2880-3 ####[facility] LABORATORYCLIA [id number] [address] [place] HERPES SIMPLEX CSFon 022 HERPES SIMPLEX CSF HSV PCR SPEC SOURCE: Cerebrospinal Fluid HSV-1: Negative for Herpes Simplex Virus Type 1 by PCR HSV-2: Negative for Herpes Simplex Virus Type 2 by PCR Normal [facility] Comment on above: Performed By: #### H [facility] ####[facility] REFERENCE LABCLIA [id number] [id number], [place] [address] [facility] [place] Lactate (Bld) [Moles/Vol]on 06-01-2021 Lactate [Moles/Vol] 0.5 mmol/L Normal 0.5-2.2 [facility] Comment on above: Order Comment: Speci men Type: BLOOD SPECIMEN Performed By: #### 3 2693-4 ####[facility] LABORATORYCLIA [id number] [address] [place] MENINGITIS ENCEPHALITIS BIOF IREon 06-01-2021 MENINGITIS ENCEPHALITIS BIOFIRE Negative Normal [facility] Comment on above: Order Comment: Speci men Type: CEREBROSPINAL FLUID Performed By: #### M GEBF ####[facility] [id number] [address] Magnesium SerPl-mCncon 06-01 Magnesium [Mass/Vol] 2.2 mg/dL Normal 1.7-2.3 [facility] Comment on above: Order Comment: Speci men Type: BLOOD SPECIMEN Performed By: #### 2 4321-2, 27678-1, 2777-1 ####[facility] LABORATORYCLIA [id number] [address] Microorganism Spec Culton Microorganism identified Cx Nom (Unsp spec) CULTURE, AFB: No Acid Fast Bacilli isolated after 42 days AFB STAIN: No acid fast bacilli seen by flurochrome stain Normal [facility] Comment on above: Performed By: #### 1 1475-1 ####[facility] LABORATORYCLIA [id number] [address] PROCALCITONIN (LAB)on 2021 Procalcitonin [Mass/Vol] 0.08 ng/mL Normal <0.09 [facility] Comment on above: Order Comment: Speci men Type: BLOOD SPECIMEN Result Comment: For a guided interpretation of test results, please visit the Change in Procalcitonin Calculator, [email or web address]. Performed By: #### P ROCAL ####[facility]ORATORYCLIA [id number] [address] [place] Phosphate SerPl-ncon 06-01 Phosphate [Mass/Vol] 3.5 mg/dL Normal 2.7-4.8 [facility] Comment on above: Order Comment: Speci men Type: BLOOD SPECIMEN Performed By: #### 2 4321-2, 99563-0, 2777-1 ####[facility] LABORATORYCLIA [id number] [address] STATES OF [facility] Prot CSF-mCncon 06-01-2021 Protein (CSF) [Mass/Vol] 52 mg/dL High 15-45 [facility] Comment on above: Order Comment: Speci men Type: CEREBROSPINAL FLUID Performed By: #### 2 342-4, 2880-3 ####[facility] LABORATORYCLIA [id number] [address] Vancomycin random [Mass/Vol] on 06-01-2021 Vancomycin [Mass/Vol] 14.6 ug/mL Normal 10.0-20.0 [facility] Comment on above: Order Comment: Speci men Type: BLOOD SPECIMEN Result Comment: Refe rence ranges and high/low indicator flags are provided as general guidelines only. The treating physician must determine appropriate target levels/dosing based on the specific clinical situation. Performed By: #### 4 091-5 ####[facility] LABORATORYCLIA [id number] [address] XR CHEST 1V FRONTALon 2021 XR CHEST 1V FRONTAL Normal [facility] XR CHEST 1V FRONTAL Normal [facility] XR NECK SOFT TISSUE 2V AP/LA Ton 06-01-2021 XR NECK SOFT TISSUE 2V AP/LAT Normal [facility] XR SKULL 2V AP/LATon 022 XR SKULL 2V AP/LAT Normal [facility] ALLIED HEALTHon 05-31-2021 ALLIED HEALTH HNO ID: [id number] Author: RT Chicho(R) Service: Radiology Author Type: Technologist Type: Allied Health Filed: 05/31/2021 5:48 PM Note Text: MRI tomorrow per RN. Normal [facility] ALLIED HEALTH Normal [facility] ALLIED HEALTH Normal [facility] ALLIED HEALTH Normal [facility] ANES POSTPROC EVALon 022 ANES POSTPROC EVAL Normal [facility] ANES PRE-OPon 05-31-2021 ANES PRE-OP Normal [facility] BRIEF OP NOTon 05-31-2021 BRIEF OP NOT Normal [facility] Bacteria Bld Culton 05-31-19 22 Bacteria identified Cx Nom (Bld) CULTURE, BLOOD: No growth 5 days Normal [facility] Comment on above: Performed By: #### 6 00-7 ####[facility] LABORATORYCLIA [id number] [place] [address] [place] Bacteria CSF Culton 05-31-19 22 Bacteria identified Cx Nom (CSF) CULTURE, CSF: No growth 14 days GRAM STAIN: No organisms seen Rare Polymorphonuclear leukocytes Rare Red Blood Cells Gram stain performed on cytospun specimen. Normal [facility] Comment on above: Performed By: #### 6 06-4 ####[facility] LABORATORYCLIA [id number] [place] [address] [place] Basic metabolic 2000 panelon 05-31-2021 Anion gap [Moles/Vol] 9 mmol/L Normal 9-18 [facility] Comment on above: Order Comment: Speci men Type: BLOOD SPECIMEN Performed By: #### 2 777-1, 96651-6, ####[facility] LABORATORYCLIA [id number] [place] [address] [place] Calcium [Mass/Vol] 8.2 mg/dL Low 8.5-10.2 [facility] Comment on above: Order Comment: Speci men Type: BLOOD SPECIMEN Performed By: #### 2 777-1, 27853-7, ####[facility] LABORATORYCLIA [id number] [place] [address] [place] Chloride [Moles/Vol] 110 mmol/L High 97-105 [facility] Comment on above: Order Comment: Speci men Type: BLOOD SPECIMEN Performed By: #### 2 777-1, 51321-0, ####[facility] LABORATORYCLIA [id number] [address] [facility] CO2 [Moles/Vol] 27 mmol/L Normal 22-30 [facility] Comment on above: Order Comment: Speci men Type: BLOOD SPECIMEN Performed By: #### 2 777-1, 25528-4, ####[facility] LABORATORYCLIA [id number] [address] [place] Creatinine [Mass/Vol] 0.85 mg/dL Normal 0.73-1.22 [facility] Comment on above: Order Comment: Speci men Type: BLOOD SPECIMEN Performed By: #### 2 777-1, , ####[facility] LABORATORYCLIA [id number] [address] [place] GFR/1.73 sq M.predicted MDRD (S/P/Bld) [Vol rate/Area] mL/min/{1.73_m2} Normal [facility] Comment on above: Order Comment: Speci men Type: BLOOD SPECIMEN Result Comment: >60e GFR (Estimated GFR) Units of measure: mL/min/1.73 meters squaredeGFR is derived from the reexpressed MDRD Study equation using the following parameters: serum creatinine, age, gender and race. The creatinine assay has been calibrated to be traceable to [employer]. An eGFR <60 mL/min/1.73m2 for >3 months is consistent with chronic kidney disease. Refer to KDOQI guidelines for clinical interpretation. In patients with unstable renal function, e.g. those with acute kidney injury, the eGFR may not accurately reflect actual GFR. Performed By: #### 2 777-1, , ####[facility] LABORATORYCLIA [id number] [address] [place] Glucose [Mass/Vol] 111 mg/dL High 74-99 [facility] Comment on above: Order Comment: Speci men Type: BLOOD SPECIMEN Result Comment: The Citizen [place] Diabetes Association (ADA) provides guidance for cutoff [...] Standards of Medical Care in Diabetes 2016, [place] Diabetes Association. Diabetes Care. 2016.39(Suppl 1). Performed By: #### 2 777-1, , ####[facility] LABORATORYCLIA [id number] [place] [address] [place] Potassium [Moles/Vol] 3.7 mmol/L Normal 3.7-5.1 [facility] Comment on above: Order Comment: Speci men Type: BLOOD SPECIMEN Performed By: #### 2 777-1, , ####[facility] LABORATORYCLIA [id number] [address] [facility] Sodium [Moles/Vol] 146 mmol/L High 136-144 [facility] Comment on above: Order Comment: Speci men Type: BLOOD SPECIMEN Performed By: #### 2 777-1, , ####[facility] LABORATORYCLIA [id number] [place] [address] [place] Urea nitrogen [Mass/Vol] 16 mg/dL Normal 9-24 [facility] Comment on above: Order Comment: Speci men Type: BLOOD SPECIMEN Performed By: #### 2 777-1, , ####[facility] LABORATORYCLIA [id number] [place] [address] [place] CASE MGT INIT ASSESon 2021 CASE MGT INIT ASSES Normal [facility] CBC W Auto Differential pane l (Bld)on 05-31-2021 Basophils (Bld) [#/Vol] 0.04 10*3/uL Normal <0.11 [facility] Comment on above: Order Comment: Speci men Type: BLOOD SPECIMEN Performed By: #### 5 7021-8 ####[facility]ORATORYCLIA [id number] [address] Basophils/100 WBC (Bld) 0.5 % Normal [facility] Comment on above: Order Comment: Speci men Type: BLOOD SPECIMEN Performed By: #### 5 7021-8 ####[facility]ORATORYCLIA [id number] [address] Differential cell count method Nom (Bld) Auto Normal [facility] Comment on above: Order Comment: Speci men Type: BLOOD SPECIMEN Performed By: #### 5 7021-8 ####[facility] LABORATORYCLIA [id number] [address] Eosinophils (Bld) [#/Vol] 0.27 10*3/uL Normal <0.46 [facility] Comment on above: Order Comment: Speci men Type: BLOOD SPECIMEN Performed By: #### 5 7021-8 ####[facility]ATORYCLIA [id number] [address] Eosinophils/100 WBC (Bld) 3.3 % Normal [facility] Comment on above: Order Comment: Speci men Type: BLOOD SPECIMEN Performed By: #### 5 7021-8 ####[facility]ORATORYCLIA [id number] [address] Erythrocyte distribution width (RBC) [Ratio] 15.4 % High 11.5-15.0 [facility] Comment on above: Order Comment: Speci men Type: BLOOD SPECIMEN Performed By: #### 5 7021-8 ####[facility]ORATORYCLIA [id number] [address] Hematocrit (Bld) [Volume fraction] 37.9 % Low 39.0-51.0 [facility] Comment on above: Order Comment: Speci men Type: BLOOD SPECIMEN Performed By: #### 5 7021-8 ####[facility] LABORATORYCLIA [id number] [address] Hemoglobin (Bld) [Mass/Vol] 11.5 g/dL Low 13.0-17.0 [facility] Comment on above: Order Comment: Speci men Type: BLOOD SPECIMEN Performed By: #### 5 7021-8 ####[facility] LABORATORYCLIA [id number] [address] IMMATURE GRAN % 0.4 % Normal [facility] Comment on above: Order Comment: Speci men Type: BLOOD SPECIMEN Performed By: #### 5 7021-8 ####[facility] LABORATORYCLIA [id number] [address] IMMATURE GRAN ABS 0.03 k/uL Normal <0.10 [facility] Comment on above: Order Comment: Speci men Type: BLOOD SPECIMEN Performed By: #### 5 7021-8 ####[facility] LABORATORYCLIA [id number] [address] Lymphocytes (Bld) [#/Vol] 1.90 10*3/uL Normal 1.00-4.00 [facility] Comment on above: Order Comment: Speci men Type: BLOOD SPECIMEN Performed By: #### 5 7021-8 ####[facility]ORATORYCLIA [id number] [address] Lymphocytes/100 WBC (Bld) 23.0 % Normal [facility] Comment on above: Order Comment: Speci men Type: BLOOD SPECIMEN Performed By: #### 5 7021-8 ####[facility]ORATORYCLIA [id number] [address] MCH (RBC) [Entitic mass] 28.0 pg Normal 26.0-34.0 [facility] Comment on above: Order Comment: Speci men Type: BLOOD SPECIMEN Performed By: #### 5 7021-8 ####[facility]ORATORYCLIA [id number] [address] MCHC (RBC) [Mass/Vol] 30.3 g/dL Low 30.5-36.0 [facility] Comment on above: Order Comment: Speci men Type: BLOOD SPECIMEN Performed By: #### 5 7021-8 ####[facility]ORATORYCLIA [id number] [address] MCV (RBC) [Entitic vol] 92.4 fL Normal 80.0-100.0 [facility] Comment on above: Order Comment: Speci men Type: BLOOD SPECIMEN Performed By: #### 5 7021-8 ####[facility] LABORATORYCLIA [id number] [address] Monocytes (Bld) [#/Vol] 0.60 10*3/uL Normal <0.87 [facility] Comment on above: Order Comment: Speci men Type: BLOOD SPECIMEN Performed By: #### 5 7021-8 ####[facility] LABORATORYCLIA [id number] [address] Monocytes/100 WBC (Bld) 7.3 % Normal [facility] Comment on above: Order Comment: Speci men Type: BLOOD SPECIMEN Performed By: #### 5 7021-8 ####[facility]ATORYCLIA [id number] [address] Neutrophils (Bld) [#/Vol] 5.41 10*3/uL Normal 1.45-7.50 [facility] Comment on above: Order Comment: Speci men Type: BLOOD SPECIMEN Performed By: #### 5 7021-8 ####[facility]ORATORYCLIA [id number] [address] Neutrophils/100 WBC (Bld) 65.5 % Normal [facility] Comment on above: Order Comment: Speci men Type: BLOOD SPECIMEN Performed By: #### 5 7021-8 ####[facility]ATORYCLIA [id number] [address] Nucleated RBC (Bld) [#/Vol] 10*3/uL Normal <0.01 [facility] Comment on above: Order Comment: Speci men Type: BLOOD SPECIMEN Performed By: #### 5 7021-8 ####[facility] LABORATORYCLIA [id number] [address] Nucleated RBC/100 WBC (Bld) [Ratio] 0.0 /100 WBC Normal 0.0 [facility] Comment on above: Order Comment: Speci men Type: BLOOD SPECIMEN Performed By: #### 5 7021-8 ####[facility] LABORATORYCLIA [id number] [address] Platelet mean volume (Bld) [Entitic vol] 9.8 fL Normal 9.0-12.7 [facility] Comment on above: Order Comment: Speci men Type: BLOOD SPECIMEN Performed By: #### 5 7021-8 ####[facility] LABORATORYCLIA [id number] [address] [facility] Platelets (Bld) [#/Vol] 251 10*3/uL Normal 150-400 [facility] Comment on above: Order Comment: Speci men Type: BLOOD SPECIMEN Performed By: #### 5 7021-8 ####[facility] LABORATORYCLIA [id number] [address] [facility] RBC (Bld) [#/Vol] 4.10 10*6/uL Low 4.20-6.00 [facility] Comment on above: Order Comment: Speci men Type: BLOOD SPECIMEN Performed By: #### 5 7021-8 ####[facility]ATORYCLIA [id number] [address] WBC (Bld) [#/Vol] 8.25 10*3/uL Normal 3.70-11.00 [facility] Comment on above: Order Comment: Speci men Type: BLOOD SPECIMEN Performed By: #### 5 7021-8 ####[facility] LABORATORYCLIA [id number] [address] [place] CONSULTon 05-31-2021 CONSULT Normal [facility] CONSULT Normal [facility] CONSULT Normal [facility] CT BRAIN WO IVCONon 05-31-[address] BRAIN WO IVCON Normal [facility] CT BRAIN WO IVCON Normal [facility] CT CHEST WO IVCONon 05-31-[address] CHEST WO IVCON Normal [facility] Cortis SerPl-mCncon 05-31-19 Cortisol [Mass/Vol] 31.0 ug/dL High AM: 5.3-22.5, PM: 3.4-16.8 [facility] Comment on above: Order Comment: Speci men Type: BLOOD SPECIMEN Result Comment: Prov ided reference range is from 6-10 AM sample collection time.Cortisol Reference Range: 6-10 AM = 4.8-19.5 ug/dL, 4-8 PM = 2.5-11.9 ug/dL Performed By: #### 2 143-6, 3016-3 ####[facility] LABORATORYCLIA [id number] [address] [place] Cryptoc Ag Spec Ql LAon 05-08 Cryptococcus sp Ag LA Ql (Unsp spec) Negative Normal [facility] Comment on above: Performed By: #### 4 3228-6 ####[facility] LABORATORYCLIA [id number] [address] [place] HISTORY PHYSICALon HISTORY PHYSICAL Normal [facility] Magnesium SerPl-mCncon 05-31 Magnesium [Mass/Vol] 2.2 mg/dL Normal 1.7-2.3 [facility] Comment on above: Order Comment: Speci men Type: BLOOD SPECIMEN Performed By: #### 2 777-1, 18711-9, 45917-5 ####[facility] LABORATORYCLIA [id number] [address] [place] NURSING PROGon 05-31-2021 NURSING PROG Normal [facility] NUTRITIONon 05-31-2021 NUTRITION Normal [facility] OPERATIVE NOon 05-31-2021 OPERATIVE NO Normal [facility] Phosphate SerPl-mCncon 05-31 Phosphate [Mass/Vol] 3.3 mg/dL Normal 2.7-4.8 [facility] Comment on above: Order Comment: Speci men Type: BLOOD SPECIMEN Performed By: #### 2 777-1, 89148-9, 93335-7 ####[facility] LABORATORYCLIA [id number] [address] STAPH AUREUS PCRon S. aureus and MRSA panel MEGAN+probe (Nose) Normal Negative [facility] Comment on above: Order Comment: Speci men Type: SWAB OF INTERNAL NOSE Result Comment: Nega tive for Staphylococcus aureus by PCR.Negative for MRSA by PCR Performed By: #### S APCR ####[facility] LABORATORYCLIA [id number] [address] [place] TSH SerPl-aCncon 05-31-2021 TSH Qn 0.829 m[IU]/L Normal 0.270-4.200 [facility] Comment on above: Order Comment: Speci men Type: BLOOD SPECIMEN Performed By: #### 2 143-6, 3016-3 ####[facility] LABORATORYCLIA [id number] [address] XR CHEST 1V FRONTALon 2021 XR CHEST 1V FRONTAL Normal [facility] XR CHEST 1V FRONTAL Normal [facility] Blood Cultureon 05-30-2021 Bacteria identified Cx Nom (Bld) Culture Result - No growth 5 days Normal [facility] Comment on above: Performed By: #### C AD #### [facility] [address] [place] [address] [facility] [address] [place], [place] [address] Bacteria identified Cx Nom (Bld) Sp. Request/Comment: - 8.2MLS Culture Result - No growth 5 days Normal [facility] Comment on above: Performed By: #### C AD #### [facility] [address] [place] [address] [facility] [address] [place], [place] [address] C-Reactive Proteinon 022 C-Reactive Protein 1.7 mg/dL High <0.9 [facility] Comment on above: Performed By: #### C RP ####[facility] [address] [id number] CNDSon 05-30-2021 [facility] HNO ID: [id number] Author: Columba Carroll PA-C Service: Hospital Medicine Author Type: Physician Safety Attendant Type: Discharge Summary Filed: 05/30/2021 12:49 PM [...] Team: Attending Provider: Ayaka Menjivar MD Physician Safety Attendant: Columba Carroll PA-C Consulting: Llio Mendoza MD REASON FOR HOSPITALIZATION: Confusion and [...] consulted. Neurology suggested empiric abx coverage for MEDICAL PHYSICS RESEARCHER infection Rocephin and Vancomycin was started. Tele-neuro also suggested an MRI brain be obtained prior to LP to check PROVIDER SCRIBE shunt and decrease risk of herniation in neurosurgery capable facility. Transfer to [facility] requested. Sepsis lactate was 1.3. ABG showed pO2 67.8, placed patient on 2L NC.Follow B1, B12, and RPR pending. Transitions of Care Critical Issues: - patient transferred for [facility] for management of possible MEDICAL PHYSICS RESEARCHER infection and herniation. LABS AND PROCEDURES PENDING [...] intravenously q 1 (more content not included)... [facility] CONSULTon 05-30-2021 CONSULT HNO ID: [id number] Author: Juan Carlos Mckenzie MD Service: Infectious [...] or shared electronic medical record. HPI: Andrew Lisa Gurpreet who is a 71 year old male [...] vertebrae with counting from the craniocervical junction. Assistant Operations Manager: OG Transcribe Date/Time: May 29 2021 8:59P Dictated by : CARLOS YOUNGER MD This examination was interpreted and the report reviewed and electronically signed by: CARLOS YOUNGER MD on May 29 2021 9:14PM EST ? CT CERVICAL SPINE WO (more content not included)... Normal [facility] CONSULT HNO ID: [id number] Author: Lilo Mendoza MD Service: Neurology General Author Type: Physician Type: Consults Filed: 05/30/2021 10:56 AM Note Text: [facility] TeleNeurology Consult Note Patient seen using [facility]. Recommendations are placed in the chart. Please review. For questions after hours, when teleneurologist is not available, for [place]: Please Page [phone] for the [facility] Neurology Group from 12pm to 8Am Admitting Provider/Consulted by:Hermes Roca MD Time of Note:05/30/2021 Patient Name:Andrew Sifuentes Admit Date:05/29/2021 Hospital Day:0 CC: altered mental status History of Present Illness: Andrew Sifuentes is a 71 year old unknown handed male with limited information about past medical history including venous insufficiency s/p EVLT, hydrocepalus s/p PROVIDER SCRIBE shunt in 1987 with multiple revisions and [...] End Date , Taking? , Authorizing Provider Toshabruce Haase Medication aspirin 81 mg chewable tablet, Sig [...] Reflexes Right Lef (more content not included)... [facility] CONSULT PROGon 05-30-2021 CONSULT PROG [facility] CONSULT PROG HNO ID: [id number] Author: [facility] Service: Pharmacy Author Type: Pharmacist Type: Consult Progress Note Filed: 05/30/2021 2:35 PM Note Text: PHARMACY VANCOMYCIN DOSING NOTE Patient Name: Andrew Sifuentes Admission Date: 05/29/2021 Date of Consult: 05/30/2021 Time of Consult: 2:32 PM Indication: possible MEDICAL PHYSICS RESEARCHER infection Goal Range: 15-20 mcg/mL RECOMMENDATIONS/PLAN: Pharmacy consulted for vancomycin dosing for Andrwe Sifuentes, a 71 year old, male who [...] any questions, please contact inpatient pharmacy at [phone]. Age: [age] year old Allergies: ALLERGIES Allergen [...] Levels: No results found for: [facility] Normal [facility] Creatinineon 05-30-2021 Creatinine [Mass/Vol] 0.86 mg/dL Normal 0.73-1.22 [facility] [place] Comment on above: Performed By: #### C RET1 ####[facility] [address] [phone] eGFR- Amer. >60 Normal [facility] Comment on above: Performed By: #### C RET1 ####[facility] [address] [phone] eGFR-All Other Races >60 [facility] Comment on above: Result Comment: eGFR [...] at [email or web address]. Performed By: #### C RET1 ####[facility] [address] [place] [phone] Crypto Antigen Deton 022 Crypto Antigen Det Sp. Request/Comment: - SST Test Result - Duplicate request Account Credited [facility] Comment on above: Performed By: #### C AD #### [facility] [address] [place], [place] [id number] [facility] [address] [place] [address] Crypto Antigen Det Sp. Request/Comment: - SST Test Result - Cryptococcal antigen detection result: Negative By latex agglutination [facility] Comment on above: Performed By: #### C AD #### [facility] [address] [place] [address] [facility] [address] [place] [address] ED NOTEon 05-30-2021 ED NOTE HNO ID: [id number] Author: Aletha Lopez RN Service: ? Author Type: Registered Nurse Type: ED Notes Filed: 05/29/2021 11:16 PM Note Text: Patient changed for incontinent urine, labs redrawn and sent. Patient aware of plan to be admitted and agrees with plan Normal [facility] HISTORY PHYSICALon 2 HISTORY PHYSICAL Normal [facility] HISTORY PHYSICAL HNO ID: [id number] Author: Hermes Roca MD Service: Hospital Medicine Author Type: Physician Type: HANDP Filed: 05/30/2021 1:03 AM Note Text: DEPARTMENT OF HOSPITAL MEDICINE HISTORY AND PHYSICAL EXAM SERVICE DATE: 05/29/2021 SERVICE TIME: 11:18 PM Primary Care Physician: Mateus Burris MD NIGHT AND WEEKEND COVERAGE: Please page [phone] until 7:30am this morning. After 7:30am please check the treatment team banner and page the appropriate service. 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 Normal [facility] Magnesium SerPl-mCncon 05-30 Magnesium [Mass/Vol] 2.5 mg/dL High 1.7-2.3 [facility] Comment on above: Order Comment: Speci men Type: BLOOD SPECIMEN Performed By: #### 1 9123-9, 2777-1 ####[facility] LABORATORYCLIA [id number] [address] [facility] NURSING PROGon 05-30-2021 NURSING PROG HNO ID: [id number] Author: Precious Cervantes RN Service: ? Author Type: Registered Nurse Type: Nursing Progress Note Filed: 05/30/2021 11:26 AM Note Text: Nursing Progress Note Patient Name: Andrew Sifuentes Patient Location: [place] [address] [address] Daily Note: 0700- Report received from application analyst RN, patient resting in bed at this time, call light within reach, bed low and locked. Asked the patient to state his name because application analyst RN was unable to complete his admission [...] This note was completed by: Precious Cervantes [facility] NURSING PROG HNO ID: [id number] Author: Lyubov Day RN Service: ? Author Type: Registered Nurse Type: Nursing Progress Note Filed: 05/30/2021 1:27 AM Note Text: Nursing Progress Note Patient Name: Andrew Sifuentes Patient Location: [place] [id number] 0100: Patient is unresponsive to questions. Patient [...] This note was completed by: Lyubov Day [facility] Phosphate SerPl-mCncon 05-30 Phosphate [Mass/Vol] 3.5 mg/dL Normal 2.7-4.8 [facility] Comment on above: Order Comment: Speci men Type: BLOOD SPECIMEN Performed By: #### 1 9123-9, 2777-1 ####[facility] LABORATORYCLIA [id number] [place] [address] [place] Sepsis Lactateon 05-30-2021 Sepsis Lactate 1.5 mmol/L Normal 0.5-2.0 [facility] Comment on above: Performed By: #### S LACT ####[facility] [address] [place] [phone] Syphilis Ttl w/Reflxon 05-30 Syphilis Interp Cannot exclude recen t Treponemal infection if specimen collected within 7 to 10 days after appearance of suspect lesions or 2 to 3 weeks after an exposure. Clinical correlation is required. Normal [facility] Comment on above: Performed By: #### S YPHTX, B1WB ####[facility] [address] [place], [place] [phone] Syphilis Screen Rslt Non-Reactive Normal Non Reactive [facility] Comment on above: Performed By: #### S YPHTX, B1WB ####[facility] [address] [place], [place] [phone] THERAPY NTon 05-30-2021 THERAPY NT HNO ID: [id number] Author: RADHA Andres/Felecia Service: Occupational Therapy Author Type: Occupational Therapist Type: Therapy (PT/OT/Speech/Resp) Filed: 05/30/2021 10:29 AM Note Text: OCCUPATIONAL THERAPY MISSED VISIT SERVICE DATE: 05/30/2021 SERVICE TIME: 1017 to 1019 ROOM: [place] [address] Attempted Evaluation. Patient not seen due to Not following commands. Per nursing patient was seen by neuro and they are talking about having him transferred to [facility] secondary to shunt concerns. Will re attempt in the event patient continues to be admitted at [place] and is able to participate. SIGNATURE: RADHA Andres/Felecia PATIENT NAME: Andrew Sifuentes DATE: May 30, 2021 TIME: 10:21 AM [facility] THERAPY NT HNO ID: [id number] Author: Bette Velasquez PT Service: Physical Therapy Author Type: Physical Therapist Type: Therapy (PT/OT/Speech/Resp) Filed: 05/30/2021 8:42 AM Note Text: PHYSICAL THERAPY MISSED VISIT SERVICE DATE: 05/30/2021 SERVICE TIME: 0840 to 0840 ROOM: [place] [address] Attempted Evaluation. Patient not seen due to (pt difficult to awake per RN, very lethargic). Will re-attempt when schedule permits. SIGNATURE: Bette Velasquez, PT PATIENT NAME: Andrew Sifuentes DATE: May 30, 2021 TIME: 8:41 AM Normal [facility] Toxicology Screen,Uron 05-30 Amphetamines, Urine Negative Normal Negative [facility] Comment on above: Result Comment: Cuto ff threshold at 1000 ng/mL. Performed By: #### C AD #### [facility] [address] [place] [phone] [place] [address] Barbiturates, Urine Negative Normal Negative [facility] Comment on above: Result Comment: Cuto ff threshold at 200 ng/mL. Performed By: #### C AD #### [facility] [address] [place] [phone] [place] [address] Benzodiazepines, Ur Negative Normal Negative [facility] Comment on above: Result Comment: Cuto ff threshold at 200 ng/mL. Performed By: #### C AD #### [facility] [place] [phone] [place] [address] Cannabinoids, Urine Negative Normal Negative [facility] Comment on above: Result Comment: Cuto ff threshold at 50 ng/mL. Performed By: #### C AD #### [facility] [address] [place] [phone] [facility] [address] [place] [address] Cocaine, Urine Negative Normal Negative [facility] Comment on above: Result Comment: Cuto ff threshold at 300 ng/mL. Performed By: #### C AD #### [facility] [place] [phone] [facility] [address] [place] [address] Opiates, Urine Negative Normal Negative [facility] Comment on above: Result Comment: Cuto ff threshold at 300 ng/mL. Performed By: #### C AD #### [facility] [place] [phone] [place] [address] Oxycodone, Urine Negative Normal Negative [facility] Comment on above: Result Comment: Cuto [...] on the same specimen through Client Services ([phone]) if contacted within 48 hours of initial testing. [1]Substance Abuse and Mental Health Services Administration (2012). Clinical Drug Testing in Primary Care Technical Assistance Publication Series 32. Department of Health and Human Services, [place], p.10. Performed By: #### C AD #### [facility] [place] [phone] [place] [address] Phencyclidine, Urine Negative Normal Negative [facility] Comment on above: Result Comment: Cuto ff threshold at 25 ng/mL. Performed By: #### C AD #### [facility] [place] [phone] [place] [address] Troponin Ton 05-30-2021 Troponin T <0.010 Normal 0.000-0.029 [facility] Comment on above: Performed By: #### T NT ####[facility] [address] [place] [phone] Urinalysison 05-30-2021 Bilirubin, Urine Negative Normal Negative [facility] Comment on above: Performed By: #### C AD #### [facility] [address] [place] [address] [facility] [address] [place], [place] [address] Clarity (U) Slightly Cloudy Critically abnormal Clear [facility] Comment on above: Performed By: #### C AD #### [facility] [address] [place] [phone] [facility] [address] [place], [place] [address] Color (U) Yellow Normal Yellow [facility] Comment on above: Performed By: #### C AD #### [facility] [address] [place] [address] [facility] [address] [place], [place] [address] Glucose Ql (U) Negative Normal Negative [facility] Comment on above: Performed By: #### C AD #### [facility] [address] [place] [address] [facility] [address] [place], [place] [address] Hemoglobin/Blood,Ur Negative Normal Negative [facility] Comment on above: Performed By: #### C AD #### [facility] [address] [place] [address] [facility] [address] [place], [place] [address] Ketones Ql (U) Negative Normal Negative [facility] Comment on above: Performed By: #### C AD #### [facility] [address] [place] [phone] [facility] [address] [place], [place] [address] Leukest Negative Normal Negative [facility] Comment on above: Performed By: #### C AD #### [facility] [address] [place] [address] [facility] [address] [place], [place] [address] Nitrite Ql (U) Negative Normal Negative [facility] Comment on above: Performed By: #### C AD #### [facility] [address] [place] [address] [address] pH (U) 8.5 [pH] High 5.0-8.0 [facility] Comment on above: Performed By: #### C AD #### [facility] [address] [place], [place] [address] [place] [address] Protein, Urine Negative Normal Negative [facility] Comment on above: Performed By: #### C AD #### [facility] [address] [place], [place] [address]85[address] [place] [address] Specific [place], Ur 1.015 Normal 1.005-1.030 [facility] [place] Comment on above: Performed By: #### C AD #### [facility] [address] [place], [place] [address] [address] [address] Urobilinogen Qn (U) 0.2 {Marianne'U}/dL Normal 0.2-1.0 [facility] Comment on above: Performed By: #### C AD #### [facility] [address] [place], [place] [address] [address] [address] Vitamin B1, Whole Blon 05-30 Vitamin B1 (TDP), WB 207.1 nmol/L Normal 84.0-213.0 [facility] Comment on above: Result Comment: This assay measures the concentration of thiamine diphosphate (TDP), the primary active form of vitamin B1. Approximately 90 percent of vitamin B1 present in whole blood is TDP. Thiamine and thiamine monophosphate, which comprise the remaining 10 percent, are not measured. This test was developed and its performance characteristics determined by [facility]'s [facility] [place] ([facility]). It has not been cleared or approved by the FDA. [facility] is regulated under CLIA as qualified to perform high complexity testing. This test is used for clinical purposes. It should not be regarded as investigational or for research. Performed By: #### S YPHTX, B1WB ####[facility] [address] [place], [place] [phone] Vitamin B12on 05-30-2021 Cobalamin (Vitamin B12) [Mass/Vol] 494 pg/mL Normal 232-1245 [facility] Comment on above: Performed By: #### C AD #### [facility] [address] [place] [address] [facility] [address] [place], [place] [address] ALLIED HEALTHon 05-29-2021 ALLIED HEALTH HNO ID: [id number] Author: RT Kitty(R) Service: Radiology Author Type: [...] Kitty(R) May 29, 2021 8:51 PM Normal [facility] ALLIED HEALTH HNO ID: [id number] Author: Markie Fish Service: ? Author Type: Manager Science Type: Allied Health Filed: 05/29/2021 8:39 PM [...] Fish May 29, 2021 8:38 PM Normal [facility] CBC and Differentialon 05-29 Abs Baso 0.05 k/uL Normal <0.11 [facility] Comment on above: Performed By: #### C MP, MG1, CBCDIF ####[facility] [address] [place] [address] Abs Ciales 0.72 k/uL Normal <0.87 [facility] Comment on above: Performed By: #### C MP, MG1, CBCDIF ####[facility] [address] [place] [address] Abs Neut 7.86 k/uL High 1.45-7.50 [facility] Comment on above: Performed By: #### C MP, MG1, CBCDIF ####[facility] [address] [place] [address] Absolute nRBC <0.01 Normal <0.01 [facility] Comment on above: Performed By: #### C MP, MG1, CBCDIF ####[facility] [address] [place] [address] Basophils/100 WBC (Bld) 0.5 % Normal [facility] Comment on above: Performed By: #### C MP, MG1, CBCDIF ####[facility] [address] [place] [address] DTYPE Auto Diff Normal [facility] Comment on above: Performed By: #### C MP, MG1, CBCDIF ####[facility] [address] [place] [address] Eosinophils (Bld) [#/Vol] 0.10 10*3/uL Normal <0.46 [facility] Comment on above: Performed By: #### C MP, MG1, CBCDIF ####[facility] [address] [place], [place] [phone] Eosinophils/100 WBC (Bld) 0.9 % Normal [facility] Comment on above: Performed By: #### C MP MG1, CBCDIF ####[facility] [address] [place] [address] Erythrocyte distribution width (RBC) [Ratio] 15.5 % High 11.5-15.0 [facility] Comment on above: Performed By: #### C MP MG1, CBCDIF ####[place] [address] Hematocrit (Bld) [Volume fraction] 41.6 % Normal 39.0-51.0 [facility] Comment on above: Performed By: #### C MP, MG1, CBCDIF ####[place] [address] Hemoglobin (Bld) [Mass/Vol] 12.7 g/dL Low 13.0-17.0 [facility] Comment on above: Performed By: #### C MP, MG1, CBCDIF ####[place] [address] Lymphocytes (Bld) [#/Vol] 2.04 10*3/uL Normal 1.00-4.00 [facility] Comment on above: Performed By: #### C MP, MG1, CBCDIF ####[address] Lymphocytes/100 WBC (Bld) 18.9 % Normal [facility] Comment on above: Performed By: #### C MP, MG1, CBCDIF ####[place] [phone] MCH 27.3 pG Normal 26.0-34.0 [facility] Comment on above: Performed By: #### C MP, MG1, CBCDIF ####[facility] [address] [place] [address] MCHC (RBC) [Mass/Vol] 30.5 g/dL Normal 30.5-36.0 [facility] [place] Comment on above: Performed By: #### C MP MG1, CBCDIF ####[facility] [address] [place] [address] MCV (RBC) [Entitic vol] 89.5 fL Normal 80.0-100.0 [facility] Comment on above: Performed By: #### C MP MG1, CBCDIF ####[place] [address] Monocytes/100 WBC (Bld) 6.7 % Normal [facility] Comment on above: Performed By: #### C MP MG1, CBCDIF ####[place] [address] Neutrophils/100 WBC (Bld) 73.0 % Normal [facility] Comment on above: Performed By: #### C MP, MG1, CBCDIF ####[place] [address] NRBCs 0.0 /100 WBC Normal 0 [facility] Comment on above: Performed By: #### C MP MG1, CBCDIF ####[place] [address] Platelet mean volume (Bld) [Entitic vol] 10.1 fL Normal 9.0-12.7 [facility] Comment on above: Performed By: #### C MP, MG1, CBCDIF ####[facility] [address] [place], [place] [phone] Platelets (Bld) [#/Vol] 291 10*3/uL Normal 150-400 [facility] Comment on above: Performed By: #### C MP, MG1, CBCDIF ####[place] [phone] RBC (Bld) [#/Vol] 4.65 10*6/uL Normal 4.20-6.00 [facility] Comment on above: Performed By: #### C MP, MG1, CBCDIF ####[facility] [address] [place], [place] [phone] WBC (Bld) [#/Vol] 10.77 10*3/uL Normal 3.70-11.00 [facility] Comment on above: Performed By: #### C MP, MG1, CBCDIF ####[facility] [address] [place] [phone] CT BRAIN WO IVCONon 05-29-19 CT BRAIN WO IVCON * * *Final Report* * * DATE OF EXAM: May 29 2021 8:42PM [facility] 0504 - CT BRAIN WO IVCON / PROCEDURE REASON: Head trauma, headache * * * * Physician Interpretation * * * * EXAMINATION: CT CERVICAL SPINE WO IVCON, CT BRAIN WO IVCON CLINICAL HISTORY: C-spine trauma, NEXUS/CCR positive (accession [id number]), Head trauma, headache (accession [id number]) TECHNIQUE: Serial axial unenhanced images were obtained from the vertex to the foramen magnum. Spiral, high resolution axial unenhanced images were obtained from the skull base to the cervicothoracic junction with sagittal and coronal planar reconstructions. Dose-Length Product (DLP): 2132 mGy*cm. CT Dose Reduction Employed: Automated exposure control (AEC) COMPARISON: 08/13/[address] RESULT: BRAIN: Post-operative change: Right parietal approach PROVIDER SCRIBE shunt is intact. The intracranial fragments of [...] vertebrae with counting from the craniocervical junction. Assistant Operations Manager: OG Transcribe Date/Time: May 29 2021 8:59P Dictated by : CARLOS YOUNGER MD This examination was interpreted and the report reviewed and electronically signed by: CARLOS YOUNGER MD on May 29 2021 9:14PM EST [id number] [facility] CT CERVICAL SPINE WO IVCONon 05-29-2021 CT CERVICAL SPINE WO IVCON * * *Final Report* * * DATE OF EXAM: May 29 2021 8:42PM [facility] 0505 - CT CERVICAL SPINE WO IVCON / PROCEDURE REASON: C-spine trauma, NEXUS/CCR positive * * * * Physician Interpretation * * * * EXAMINATION: CT CERVICAL SPINE WO IVCON, CT BRAIN WO IVCON CLINICAL HISTORY: C-spine trauma, NEXUS/CCR positive (accession [id number]), Head trauma, headache (accession [id number]) TECHNIQUE: Serial axial unenhanced images were obtained from the vertex to the foramen magnum. Spiral, high resolution axial unenhanced images were obtained from the skull base to the cervicothoracic junction with sagittal and coronal planar reconstructions. Dose-Length Product (DLP): 2132 mGy*cm. CT Dose Reduction Employed: Automated exposure control (AEC) COMPARISON: 08/13/[address] RESULT: BRAIN: Post-operative change: Right parietal approach PROVIDER SCRIBE shunt is intact. The intracranial fragments of [...] vertebrae with counting from the craniocervical junction. Assistant Operations Manager: PSCB Transcribe Date/Time: May 29 2021 8:59P Dictated by : CARLOS YOUNGER MD This examination was interpreted and the report reviewed and electronically signed by: CARLOS YOUNGER MD on May 29 2021 9:14PM EST [id number] Normal [facility] Cepheid Bill only (EXCFR)on 05-29-2021 Cepheid Bill only (EXCFR) Billed for services performed Normal [facility] Comment on above: Performed By: #### C AD #### [facility] [address] [facility] [address] [place], [place] [address] Comp Metabolic Panelon 05-29 Albumin [Mass/Vol] 4.1 g/dL Normal 3.9-4.9 [facility] Comment on above: Performed By: #### C MP ####[facility] [address] [place] [address] ALP [Catalytic activity/Vol] 86 U/L Normal 38-113 [facility] Comment on above: Performed By: #### C MP ####[facility] [address] [place] [phone] ALT [Catalytic activity/Vol] 15 U/L Normal 10-54 [facility] Comment on above: Performed By: #### C MP ####[facility] Un[address] Anion gap [Moles/Vol] 9 mmol/L Normal 9-18 [facility] [place] Comment on above: Performed By: #### C MP ####[facility] [address] [place] [address] AST [Catalytic activity/Vol] 22 U/L Normal 14-40 [facility] Comment on above: Performed By: #### C MP ####[facility] [address] [place] [address] Bilirubin [Mass/Vol] 0.2 mg/dL Normal 0.2-1.3 [facility] Comment on above: Performed By: #### C MP ####[facility] [address] [place] [address] Calcium [Mass/Vol] 9.1 mg/dL Normal 8.5-10.2 [facility] Comment on above: Performed By: #### C MP ####[facility] [address] [place] [address] Chloride [Moles/Vol] 103 mmol/L Normal 97-105 [facility] Comment on above: Performed By: #### C MP ####[facility] [address] [place] [address] CO2 [Moles/Vol] 29 mmol/L Normal 22-30 [facility] Comment on above: Performed By: #### C MP ####[facility] [address] [place] [address] Creatinine [Mass/Vol] 0.89 mg/dL Normal 0.73-1.22 [facility] [place] Comment on above: Performed By: #### C MP ####[facility] [address] [place] [address] eGFR- Amer. >60 Normal [facility] Comment on above: Performed By: #### C MP ####[facility] [address] [place] [address] eGFR-All Other Races >60 Normal [facility] Comment on above: Result Comment: eGFR [...] at [email or web address]. Performed By: #### C MP ####[facility] [address] [place] [phone] Glucose [Mass/Vol] 120 mg/dL High 74-99 [facility] Comment on above: Result Comment: The [place] Diabetes Association (ADA) provides guidance for cutoff [...] Standards of Medical Care in Diabetes 2016, [place] Diabetes Association. Diabetes Care. 2016.39(Suppl 1). Performed By: #### C MP ####[facility] U[address]v7253 [address] Potassium [Moles/Vol] 4.2 mmol/L Normal 3.7-5.1 [facility] [place] Comment on above: Performed By: #### C MP ####[facility] Eqdkdmahws0564 [address] Protein [Mass/Vol] 7.1 g/dL Normal 6.3-8.0 [facility] Comment on above: Performed By: #### C MP ####[facility] [address] [place], [place] [phone] Sodium [Moles/Vol] 141 mmol/L Normal 136-144 [facility] Comment on above: Performed By: #### C MP ####[facility] [address] [place] [address] Urea nitrogen [Mass/Vol] 11 mg/dL Normal 9-24 [facility] Comment on above: Performed By: #### C MP ####[facility] [address]15[address] [place] [address] Albumin [Mass/Vol] 4.1 g/dL Normal 3.9-4.9 [facility] Comment on above: Performed By: #### C MP, MG1, CBCDIF ####[facility] [address] [place] [address] ALP [Catalytic activity/Vol] 86 U/L Normal 38-113 [facility] Comment on above: Performed By: #### C MP, MG1, CBCDIF ####[facility] [address] [place] [address] ALT Unable to assay due to interference from hemolysis. Suggest reorder as clinically indicated. Normal 10-54 [facility] Comment on above: Result Comment: Call ed to ED Álvaro at 2128 on 05.29.21 by Sabino Performed By: #### C MP, MG1, CBCDIF ####[facility] [address] [place] [address] Anion gap [Moles/Vol] 12 mmol/L Normal 9-18 [facility] Comment on above: Performed By: #### C MP, MG1, CBCDIF ####[facility] [address] [place] [address] AST Unable to assay due to interference from hemolysis. Suggest reorder as clinically indicated. Normal 14-40 [facility] Comment on above: Result Comment: Call ed to ED StephanLubna at 2128 on 05.29.21 by Sabino Performed By: #### C MP, MG1, CBCDIF ####[facility] [address] [place] [address] Bilirubin [Mass/Vol] 0.2 mg/dL Normal 0.2-1.3 [facility] Comment on above: Performed By: #### C MP, MG1, CBCDIF ####[facility] [address] [place] [address] Calcium [Mass/Vol] 9.0 mg/dL Normal 8.5-10.2 [facility] Comment on above: Performed By: #### C MP, MG1, CBCDIF ####[facility] Vfmluvtqwf6327 [address] Chloride [Moles/Vol] 102 mmol/L Normal 97-105 [facility] Comment on above: Performed By: #### C MP, MG1, CBCDIF ####[facility] Ptszxpaqwl8041 [address] CO2 [Moles/Vol] 27 mmol/L Normal 22-30 [facility] Comment on above: Performed By: #### C MP, MG1, CBCDIF ####[facility] Kwxczozijc6131 [address] Creatinine [Mass/Vol] 0.75 mg/dL Normal 0.73-1.22 [facility] Comment on above: Performed By: #### C MP, MG1, CBCDIF ####[facility] Wtdadtoeyi0133 [address] eGFR- Amer. >60 Normal [facility] Comment on above: Performed By: #### C MP, MG1, CBCDIF ####[facility] [address] [place] [address] eGFR-All Other Races >60 Normal [facility] Comment on above: Result Comment: eGFR [...] Performed By: #### C MP, MG1, CBCDIF ####[facility] [address] [place] [address] Glucose [Mass/Vol] 112 mg/dL High 74-99 [facility] Comment on above: Result Comment: The [place] Diabetes Association (ADA) provides guidance for cutoff [...] Standards of Medical Care in Diabetes 2016, [place] Diabetes Association. Diabetes Care. 2016.39(Suppl 1). Performed By: #### C MP, MG1, CBCDIF ####[facility] [address] [place] [address] Potassium Unable to assay due to interference from hemolysis. Suggest reorder as clinically indicated. Normal 3.7-5.1 [facility] Comment on above: Result Comment: Call ed to ED Álvaro at 2129 on 05.29.21 by Sabino Performed By: #### C MP, MG1, CBCDIF ####[facility] [address] [place], [place] [id number] Protein [Mass/Vol] 7.3 g/dL Normal 6.3-8.0 [facility] Comment on above: Performed By: #### C MP, MG1, CBCDIF ####[facility] Goaxcfebou1501 [address] Sodium [Moles/Vol] 141 mmol/L Normal 136-144 [facility] Comment on above: Performed By: #### C MP, MG1, CBCDIF ####[facility] [address] [place], [place] [id number] Urea nitrogen [Mass/Vol] 11 mg/dL Normal 9-24 [facility] Comment on above: Performed By: #### C MP, MG1, CBCDIF ####[facility] [address] [place], [place] [id number] ED PROV NOTEon 05-29-2021 ED PROV NOTE HNO ID: [id number] Author: Shanell Slaughter MD Service: ? Author [...] No radiographic evidence of acute cardiopulmonary disease. Assistant Operations Manager: OG Transcribe Date/Time: May 29 2021 8:53P [...] vertebrae with counting from the craniocervical junction. Assistant Operations Manager: OG Transcribe Date/Time: May 29 2021 8:59P [...] vertebrae with counting from the craniocervical junction. Assistant Operations Manager: OG Transcribe Date/Time: May 29 (more content not included)... Normal [facility] ED PROV NOTE HNO ID: [id number] Author: Flavio Pandya DO Service: Emergency Medicine Author Type: Physician Type: ED Provider Notes Filed: 05/29/2021 7:10 PM Note Text: ED Provider Note Patient Name: Andrew Sifuentes SERVICE DATE: 05/29/21 History Patient presents with: Fall 71 yo male non-smoker, hx of HTN, 2 PROVIDER SCRIBE shunts, PE (not on anticoagulation now), asthma, [...] with assistance from bedside clinician. Provider Location: [facility] Patient Location: Outpatient Hospital Physical Exam [...] MDM SIGNATURE: Flavio Pandya, DO Flavio Pandya, DO 05/29/211909 Normal [facility] EXCOVD, Flu A/B, RSV (On int erfaces 1102,1120)on 05-29-2021 Influenza A PCR Negative [facility] Comment on above: Performed By: #### C AD #### [facility] [address] [place] [phone] Influenza B PCR Negative Normal [facility] Comment on above: Performed By: #### C AD #### [facility] [address] [place] [phone] RSV PCR Negative [facility] Comment on above: Result Comment: This test has been authorized by FDA under an Emergency Use Authorization (EUA). Performed By: #### C AD #### [facility] [address] [place] [address] SARS-CoV-2 (COVID-19) RNA MEGAN+probe Ql (Unsp spec) UPPER RESPIRATORY TRACT SWAB Normal [facility] Comment on above: Performed By: #### C AD #### [facility] [address] [place] [address] SARS-CoV-2 (COVID-19) RNA MEGAN+probe Ql (Unsp spec) Negative for COVID19 (SARS CoV2) by RT-PCR or equivalent method. Normal Negative for COVID19 (SARS CoV2) by RT-PCR or equivalent method. [facility] Comment on above: Result Comment: This test has been authorized by FDA under an Emergency Use Authorization (EUA). Performed By: #### C AD #### [facility] [address] [place] [address] [facility] [address] [place] [address] Magnesiumon 05-29-2021 Magnesium [Mass/Vol] 2.2 mg/dL Normal 1.7-2.3 [facility] Comment on above: Performed By: #### C MP, MG1, CBCDIF ####[facility] [address] [place] [phone] NT Pro BNPon 05-29-2021 PRO B Natr Peptide 303 pg/mL High <125 [facility] Comment on above: Performed By: #### N TBNP ####[facility] [address] [place] [phone] Troponin Ton 05-29-2021 Troponin T <0.010 Normal 0.000-0.029 [facility] Comment on above: Performed By: #### T NT ####[facility] [address] [place] [phone] Troponin T Unable to assay due to interference from hemolysis. Suggest reorder as clinically indicated. Normal 0.000-0.029 [facility] Comment on above: Result Comment: Call ed to ED Álvaro at 2129 on 05.29.21 by Sabino Performed By: #### T NT ####[facility] [address] [place] [phone] XR CHEST 1V FRONTAL PORTon 0 05-29-2021 [...] No radiographic evidence of acute cardiopulmonary disease. Assistant Operations Manager: OG Transcribe Date/Time: May 29 2021 8:53P Dictated by : ROLY BANGURA MD This examination was interpreted and the report reviewed and electronically signed by: ROLY BANGURA MD on May 29 2021 8:54PM EST [id number] Normal [facility] PANELon 2020 Albumin [Mass/Vol] 3.9 g/dL Normal 3.4 - 5.0 [facility] Comment on above: Order Comment: PATIE NT FASTING Performed By: #### C MP #### [facility] [address] [place] [address] ALP [Catalytic activity/Vol] 71 U/L Normal 33 - 136 [facility] Comment on above: Order Comment: PATIE NT FASTING Performed By: #### C MP #### [facility] [address] [place] [address] ALT [Catalytic activity/Vol] 19 U/L Normal 10 - 52 [facility] Comment on above: Order Comment: PATIE NT FASTING Result Comment: Nasima ents treated with Sulfasalazine may generate falsely decreased results for ALT. Performed By: #### C MP #### [facility] [address] [place] [address] Anion gap [Moles/Vol] 13 mmol/L Normal 10 - 20 [facility] Comment on above: Order Comment: PATIE NT FASTING Performed By: #### C MP #### [facility] [address] [place] [address] AST [Catalytic activity/Vol] 20 U/L Normal 9 - 39 [facility] Comment on above: Order Comment: PATIE NT FASTING Performed By: #### C MP #### [facility] [address] [place] [address] Bilirubin [Mass/Vol] 0.6 mg/dL Normal 0.0 - 1.2 [facility] Comment on above: Order Comment: PATIE NT FASTING Performed By: #### C MP #### [facility] [address] [place] [address] Calcium [Mass/Vol] 9.0 mg/dL Normal 8.6 - 10.6 [facility] Comment on above: Order Comment: PATIE NT FASTING Performed By: #### C MP #### [facility] [address] [place] [address] Chloride [Moles/Vol] 103 mmol/L Normal 98 - 107 [facility] Comment on above: Order Comment: PATIE NT FASTING Performed By: #### C MP #### [facility] [address] [place] [address] Creatinine [Mass/Vol] 0.94 mg/dL Normal 0.50 - 1.30 [facility] Comment on above: Order Comment: PATIE NT FASTING Performed By: #### C MP #### [facility] [address] [place] [address] GFR- AM. >60 Normal >60 [facility] Comment on above: Order Comment: PATIE NT FASTING Result Comment: CALC ULATIONS OF ESTIMATED GFR ARE PERFORMED USING THE MDRD STUDY EQUATION FOR THE IDMS-TRACEABLE CREATININE METHODS. CLIN CHEM 2007;53:766-72 Performed By: #### C MP #### [facility] [address] [place] [address] GFR-NON AM. >60 Normal >60 [facility] Comment on above: Order Comment: PATIE NT FASTING Performed By: #### C MP #### [facility] [address] [place] [address] Glucose [Mass/Vol] 85 mg/dL Normal 74 - 99 [facility] Comment on above: Order Comment: PATIE NT FASTING Performed By: #### C MP #### [facility] [address] [place] [address] HCO3 (Bld) [Moles/Vol] 30 mmol/L Normal 21 - 32 [facility] Comment on above: Order Comment: PATIE NT FASTING Performed By: #### C MP #### [facility] [address] [place] [address] Potassium [Moles/Vol] 4.1 mmol/L Normal 3.5 - 5.3 [facility] Comment on above: Order Comment: PATIE NT FASTING Performed By: #### C MP #### [facility] [address] [place] [address] Protein [Mass/Vol] 6.6 g/dL Normal 6.4 - 8.2 [facility] Comment on above: Order Comment: PATIE NT FASTING Performed By: #### C MP #### [facility] [address] [place] [address] Sodium [Moles/Vol] 142 mmol/L Normal 136 - 145 [facility] Comment on above: Order Comment: PATIE NT FASTING Performed By: #### C MP #### [facility] [address] [place] [address] Urea nitrogen [Mass/Vol] 14 mg/dL Normal 6 - 23 [facility] Comment on above: Order Comment: PATIE NT FASTING Performed By: #### C MP #### [facility] [address] [place] [address] LIPID PANEL (CORONARY RISK 2 )on 09-03-2020 Cholesterol [Mass/Vol] 210 mg/dL High 0 - 199 [facility] Comment on above: Order Comment: PATIE NT [...] dosing. Performed By: #### L IPID #### [facility] [address] [place] [address] Cholesterol in HDL [Mass/Vol] 50.1 mg/dL Normal [facility] Comment on above: Order Comment: PATIE NT FASTING Result Comment: . AGE VERY LOW LOW NORMAL HIGH 0-19 Y < 35 < 40 40-45 ---- 20-24 Y ---- < 40 >45 ---- >24 Y ---- < 40 40-60 >60 . Performed By: #### L IPID #### [facility] [address] [place] [address] Cholesterol in LDL [Mass/Vol] 130 mg/dL High 0 - 99 [facility] Comment on above: Order Comment: PATIE NT FASTING Result Comment: . NEAR BORD AGE DESIRABLE OPTIMAL HIGH HIGH VERY HIGH 0-19 Y 0 - 109 --- 110-129 >/= 130 ---- 20-24 Y 0 - 119 --- 120-159 >/= 160 ---- >24 Y 0 - 99 100-129 130-159 160-189 >/=190 . Performed By: #### L IPID #### [facility] [address] [place] [address] Cholesterol in VLDL [Mass/Vol] 30 mg/dL Normal 0 - 40 [facility] Comment on above: Order Comment: PATIE NT FASTING Performed By: #### L IPID #### [facility] [address] [place] [address] Cholesterol.total/Chol esterol in HDL [Mass ratio] 4.2 {ratio} Normal [facility] Comment on above: Order Comment: PATIE NT FASTING Result Comment: REF VALUES DESIRABLE < 3.4 HIGH RISK > 5.0 Performed By: #### L IPID #### [facility] [address] [place] [address] Triglyceride [Mass/Vol] 152 mg/dL High 0 - 149 [facility] Comment on above: Order Comment: PATIE NT [...] dosing. Performed By: #### L IPID #### [facility] [address] [place] [address] PROSTATE SPEC.AG,SCREENon PROSTATE SPEC.AG,SCREEN 0.37 ng/mL Normal 0.00 - 4.00 [facility] Comment on above: Order Comment: PATIE NT FASTING Result Comment: The FDA requires that the method used for PSA assay be reported to the physician. Values obtained with different assay methods must not be used interchangeably. This test was performed at [facility] using the Siemens Hallspot PSA method, which is a sandwich immunoassay using chemiluminescence for quantitation. The assay is approved for measurement of prostate-specific antigen (PSA) in serum and may be used in conjunction with a digital rectal examination in men 50 years and older as an aid in detection of prostate cancer. 6-Ysuxm-qpwywswjh inhibitors (e.g. Proscar, Finasteride, Avodart, Dutasteride and Elizabeth) for the treatment of BPH have been shown to lower PSA levels by an average of 50% after 6 months of treatment. Performed By: #### P SASC #### [facility] [address] [place] [address] TSH WITH REFLEX TO FREE T4 I F ABNORMALon 09-03-2020 TSH Qn 0.97 m[IU]/L Normal 0.44 - 3.98 [facility] Comment on above: Order Comment: PATIE NT FASTING Result Comment: TSH testing is performed using different testing methodology at [facility] than at other [facility]. Direct result comparisons should only be made within the same method. Performed By: #### T HYDS #### [facility] [address] [place] [address] CBC AND DIFFERENTIALon 09-02 % AUTOMATED IMMATURE GRAN 0.3 % Normal 0.0 - 0.9 [facility] Comment on above: Order Comment: PATIE NT FASTING Result Comment: [place] Granulocyte Count (IG) includes promyelocytes, myelocytes and metamyelocytes but does not include bands. Percent differential counts (%) should be interpreted in the context of the absolute cell counts (cells/L). Performed By: #### C BCDF #### [facility] [address] [place] [address] Basophils (Bld) [#/Vol] 0.07 10*3/uL Normal 0.00 - 0.10 [facility] Comment on above: Order Comment: PATIE NT FASTING Result Comment: Auto mated WBC differential has been confirmed by manual smear. Performed By: #### C BCDF #### [facility] [address] [place] [address] Basophils/100 WBC (Bld) 0.9 % Normal 0.0 - 2.0 [facility] Comment on above: Order Comment: PATIE NT FASTING Performed By: #### C BCDF #### [facility] [address] [place] [address] Eosinophils (Bld) [#/Vol] 0.21 10*3/uL Normal 0.00 - 0.70 [facility] Comment on above: Order Comment: PATIE NT FASTING Performed By: #### C BCDF #### [facility] [address] [place] [address] Eosinophils/100 WBC (Bld) 2.8 % Normal 0.0 - 6.0 [facility] Comment on above: Order Comment: PATIE NT FASTING Performed By: #### C BCDF #### [facility] [address] [place] [address] Lymphocytes (Bld) [#/Vol] 2.28 10*3/uL Normal 1.20 - 4.80 [facility] Comment on above: Order Comment: PATIE NT FASTING Performed By: #### C BCDF #### [facility] [address] [place] [address] Lymphocytes/100 WBC (Bld) 30.9 % Normal 13.0 - 44.0 [facility] Comment on above: Order Comment: PATIE NT FASTING Performed By: #### C BCDF #### [facility] [address] [place] [address] Monocytes (Bld) [#/Vol] 0.50 10*3/uL Normal 0.10 - 1.00 [facility] Comment on above: Order Comment: PATIE NT FASTING Performed By: #### C BCDF #### [facility] [address] [place] [address] Monocytes/100 WBC (Bld) 6.8 % Normal 2.0 - 10.0 [facility] Comment on above: Order Comment: PATIE NT FASTING Performed By: #### C BCDF #### [facility] [address] [place] [address] Neutrophils (Bld) [#/Vol] 4.29 10*3/uL Normal 1.20 - 7.70 [facility] Comment on above: Order Comment: PATIE NT FASTING Performed By: #### C BCDF #### [facility] [address] [place] [address] Neutrophils/100 WBC (Bld) 58.3 % Normal 40.0 - 80.0 [facility] Comment on above: Order Comment: PATIE NT FASTING Performed By: #### C BCDF #### [facility] [address] [place] [address] Erythrocyte distribution width (RBC) [Ratio] 14.6 % High 11.5 - 14.5 [facility] Comment on above: Order Comment: PATIE NT FASTING Performed By: #### C BCDF #### [facility] [address] [place] [address] Hematocrit (Bld) [Volume fraction] 43.1 % Normal 41.0 - 52.0 [facility] Comment on above: Order Comment: PATIE NT FASTING Performed By: #### C BCDF #### [facility] [address] [place] [address] Hemoglobin (Bld) [Mass/Vol] 13.3 g/dL Low 13.5 - 17.5 [facility] Comment on above: Order Comment: PATIE NT FASTING Performed By: #### C BCDF #### [facility] [address] [place] [address] MCHC (RBC) [Mass/Vol] 30.9 g/dL Low 32.0 - 36.0 [facility] Comment on above: Order Comment: PATIE NT FASTING Performed By: #### C BCDF #### [facility] [address] [place] [address] MCV (RBC) [Entitic vol] 92 fL Normal 80 - 100 [facility] Comment on above: Order Comment: PATIE NT FASTING Performed By: #### C BCDF #### [facility] [address] [place] [address] NUCLEATED RBC 0.0 /100 WBC Normal 0.0-0.0 [facility] Comment on above: Order Comment: PATIE NT FASTING Performed By: #### C BCDF #### [facility] [address] [place] [address] Platelets (Bld) [#/Vol] 267 10*3/uL Normal 150 - 450 [facility] Comment on above: Order Comment: PATIE NT FASTING Performed By: #### C BCDF #### [facility] [address] [place] [address] RBC 4.69 x10E12/L Normal 4.50 - 5.90 [facility] Comment on above: Order Comment: PATIE NT FASTING Performed By: #### C BCDF #### [facility] [address] [place] [address] WBC (Bld) [#/Vol] 7.4 10*3/uL Normal 4.4 - 11.3 [facility] Comment on above: Order Comment: PATIE NT FASTING Performed By: #### C BCDF #### [facility] [address] [place] [address] RED CELL MORPHOLOGYon 2020 CHANELL CELLS Few Normal [facility] Comment on above: Order Comment: PATIE NT FASTING Performed By: #### M ORP2 #### [facility] [address] [place] [address] OVALOCYTES Few Normal [facility] Comment on above: Order Comment: PATIE NT FASTING Performed By: #### M ORP2 #### [facility] [address] [place] [address] POLYCHROMASIA Mild Normal [facility] Comment on above: Order Comment: PATIE NT FASTING Performed By: #### M ORP2 #### [facility] [address] [place] [address] RBC FRAGMENTS Few Normal [facility] Comment on above: Order Comment: PATIE NT FASTING Performed By: #### M ORP2 #### [facility] [address] [place] [address] RBC morphology finding Nom (Bld) See Below Normal [facility] Comment on above: Order Comment: PATIE NT FASTING Performed By: #### M ORP2 #### [facility] [address] [place] [address] No Panel Informationon 01-19 76 1 MP-Cardiolo [...] gy-[facility] [address] [place] Work Phone: [email or web address] ?RetrieveTestByDateTime?P tizgcoXP=[email or web address]&Date=1 09-13-2019&Time=15%3a11%3a 03%3a00&TestType=ECG&Site =1&OutputType=PDF&Ext=PDF MP-Cardiolo gy-[place] 140 [place] Work Phone: Otheron 11-13-2019 [facility] Complete Blood Count + Diffe rentialon 11-06-2019 Basophils (Bld) [#/Vol] 0.06 {x10E9/L} See Below [facility] Work Phone: Comment on above: Reference Range: 0.0 0 - 0.10 Basophils/100 WBC (Bld) 0.8 % 0.0 - 2.0 -[facility] Work Phone: Eosinophils (Bld) [#/Vol] [...] 30.8 g/dL below low threshold See Below -[facility] Work Phone: Comment on above: Reference Range: 32. 0 - 36.0 MCV (RBC) [Entitic vol] 94 fL 80 - 100 [facility] Work Phone: Monocytes (Bld) [#/Vol] 0.49 {x10E9/L} See Below [facility] Work Phone: Comment on above: Reference Range: 0.1 0 - 1.00 Monocytes/100 WBC (Bld) 6.8 % 2.0 - 10.0 [facility] Work Phone: Neutrophils (Bld) [#/Vol] 4.30 {x10E9/L} See Below [facility] Work Phone: Comment on above: Reference Range: 1.2 0 - 7.70 Neutrophils/100 WBC (Bld) 59.9 % See Below [facility] Work Phone: Comment on above: Reference Range: 40. 0 - 80.0 Platelets (Bld) [#/Vol] 270 {x10E9/L} 150 - 450 -[facility] Work Phone: RBC (Bld) [#/Vol] 4.85 {x10E12/L} See Below [facility] Work Phone: Comment on above: Reference Range: 4.5 0 - 5.90 WBC (Bld) [#/Vol] 0.0 {/100_WBC} 0.0-0.0 [facility] Work Phone: WBC (Bld) [#/Vol] 7.2 {x10E9/L} 4.4 - 11.3 [facility] Work Phone: Complete Blood Count + Differential 0.1 % 0.0 - 0.9 [facility] Work Phone: Comment on above: Immature Granulocyte Count (IG) includes promyelocytes, myelocytes and metamyelocytes but does not include bands. Percent differential counts (%) should be interpreted in the context of the absolute cell counts (cells/L). Lipid Panelon 11-06-2019 Cholesterol [Mass/Vol] 181 mg/dL 0 - 199 [facility] Work Phone: Comment on above: [...] dosing. Cholesterol in HDL [Mass/Vol] 52.1 mg/dL [facility] Work Phone: Comment on above: . AGE VERY LOW LOW N ORMAL HIGH 0-19 Y < 35 < 40 40-45 ---- 20-24 Y ---- < 40 >45 ---- >24 Y ---- < 40 40-60 >60. Cholesterol in LDL [Mass/Vol] 97 mg/dL 0 - 99 [facility] Work Phone: Comment on above: . NEAR BORD AGE IZABELLA RABLE OPTIMAL HIGH HIGH VERY HIGH 0-19 Y 0 - 109 --- 110-129 >/= 130 ---- 20-24 Y 0 - 119 --- 120-159 >/= 160 ---- >24 Y 0 - 99 100-129 130-159 160-189 >/=190. Cholesterol.total/Chol esterol in HDL [Mass ratio] 3.5 {ratio} [facility] Work Phone: Comment on above: REF VALUESDESIRABLE < 3.4HIGH RISK > 5.0 Triglyceride [Mass/Vol] 158 mg/dL above high threshold 0 - 149 [facility] Work Phone: Comment on [...] Lipid Panel 32 mg/dL 0 - 40 [facility] Work Phone: Metabolic Panelon 11-06-2019 ALP [Catalytic activity/Vol] 70 U/L 33 - 136 [facility] Work Phone: Anion gap [Moles/Vol] 13 mmol/L 10 - 20 [facility] Work Phone: Bilirubin [Mass/Vol] 0.6 mg/dL 0.0 - 1.2 [facility] Work Phone: Calcium [Mass/Vol] 9.4 mg/dL 8.6 - 10.6 [facility] [facility] Work Phone: Chloride [Moles/Vol] 99 mmol/L 98 - 107 [facility] Work Phone: CO2 [Moles/Vol] 30 mmol/L 21 - 32 [facility] Physician [facility] Work Phone: Creatinine [Mass/Vol] 0.87 mg/dL See Below [facility] Work Phone: Comment on above: Reference Range: 0.5 0 - 1.30 Glucose [Mass/Vol] 89 mg/dL 74 - 99 [facility] Work Phone: Potassium [Moles/Vol] 4.3 mmol/L 3.5 - 5.3 [facility] Work Phone: Protein [Mass/Vol] 7.3 g/dL 6.4 - 8.2 [facility] Work Phone: Sodium [Moles/Vol] 138 mmol/L 136 - 145 [facility] Work Phone: Urea nitrogen [Mass/Vol] 14 mg/dL 6 - 23 [facility] Work Phone: Otheron 11-06-2019 Albumin BCP dye [Mass/Vol] 4.4 g/dL 3.4 - 5.0 [facility] Work Phone: ALT With P-5'-P [Catalytic activity/Vol] 11 U/L 10 - 52 [facility] Work Phone: Comment on above: Patients treated wit h Sulfasalazine may generate falsely decreased results for ALT. AST With P-5'-P [Catalytic activity/Vol] 17 U/L 9 - 39 [facility] Work Phone: >60 >60 [facility] Work Phone: Comment on above: CALCULATIONS OF LUZMARIA MATED GFR ARE PERFORMED USING THE MDRD STUDY EQUATION FOR THE IDMS-TRACEABLE CREATININE METHODS. CLIN CHEM 2007;53:766-72 Culture, urine Bacteria identified Cx Nom (U) Mixed Gram Pos & Gram Neg Org [facility] Work Phone: Bacteria identified Cx Nom (U) Klebsiella pneumoniae sp pneum [facility] Work Phone: Vital Signs Date Time Vital Sign Value Performing Clinician Facility 09-13-2023 11:48-0400 Body height 175.3 cm Rebecca Buck MD Work Phone: [employer] 09-13-2023 11:48-0400 Body mass index (BMI) [Ratio] 25.84 kg/m2 Rebecca Buck MD Work Phone: [employer] 09-13-2023 11:48-0400 Body weight 79.38 kg Rebecca Buck MD Work Phone: [employer] 08-13-2023 09:56-0400 Body height 175.3 cm Rebecca Buck MD Work Phone: [employer] 08-13-2023 09:56-0400 Body mass index (BMI) [Ratio] 25.84 kg/m2 Rebecca Buck MD Work Phone: [employer] 08-13-2023 09:56-0400 Body weight 79.38 kg Rebecca Buck MD Work Phone: [employer] 03-02-2022 18:49-0400 Body temperature 98.01 [degF] Lanette Munguia DO Work Phone: [employer] 03-02-2022 18:49-0400 Diastolic blood pressure 72 mm[Hg] Lanette Munguia DO Work Phone: [employer] 03-02-2022 18:49-0400 Heart rate 94 /min Lanette Munguia DO Work Phone: [employer] 03-02-2022 18:49-0400 Respiratory rate 18 /min Lanette Munguia DO Work Phone: [employer] 03-02-2022 18:49-0400 SaO2% (BldA) [Mass fraction] 98 % Lanette Munguia DO Work Phone: [employer] 03-02-2022 18:49-0400 Systolic blood pressure 104 mm[Hg] Lanette Munguia DO Work Phone: [employer] 03-02-2022 11:55-0400 Body height 175.3 cm Lanette Munguia DO Work Phone: [employer] 03-02-2022 11:55-0400 Body mass index (BMI) [Ratio] 25.84 kg/m2 Lanette Munguia DO Work Phone: [facility] 03-02-2022 11:55-0400 Body weight 79.38 kg Lanette Munguia DO Work Phone: [facility] 12-22-2021 02:08-0400 Diastolic blood pressure 67 mm[Hg] Sharon lOivia MD Work Phone: [facility] 12-22-2021 02:08-0400 Heart rate 77 /min Sharon Olivia MD Work Phone: [facility] 12-22-2021 02:08-0400 Respiratory rate 16 /min Sharon Olivia MD Work Phone: [facility] 12-22-2021 02:08-0400 SaO2% (BldA) [Mass fraction] 96 % Sharon Olivia MD Work Phone: [facility] 12-22-2021 02:08-0400 Systolic blood pressure 108 mm[Hg] Sharon Olivia MD Work Phone: [facility] 12-21-2021 23:52-0400 Body height 175.3 cm Sharon Olivia MD Work Phone: [facility] 12-21-2021 23:52-0400 Body mass index (BMI) [Ratio] 25.84 kg/m2 Sharon Olivia MD Work Phone: [facility] 12-21-2021 23:52-0400 Body temperature 97.9 [degF] Sharon Olivia MD Work Phone: [facility] 12-21-2021 23:52-0400 Body weight 79.38 kg Sharon Olivia MD Work Phone: [facility] 11-01-2021 08:41-0400 Diastolic blood pressure 77 mm[Hg] Dante Kim MD Work Phone: [facility] 11-01-2021 08:41-0400 Heart rate 75 /min Dante Kim MD Work Phone: [facility] 11-01-2021 08:41-0400 Respiratory rate 16 /min Dante Kim MD Work Phone: [facility] 11-01-2021 08:41-0400 SaO2% (BldA) [Mass fraction] 97 % Dante Kim MD Work Phone: [facility] 11-01-2021 08:41-0400 Systolic blood pressure 112 mm[Hg] Dante Kim MD Work Phone: [facility] 10-31-2021 19:13-0400 Body height 177.8 cm Dante Kim MD Work Phone: [facility] 10-31-2021 19:13-0400 Body mass index (BMI) [Ratio] 27.26 kg/m2 Dante Kim MD Work Phone: [facility] 10-31-2021 19:13-0400 Body temperature 98.49 [degF] Dante Kim MD Work Phone: [facility] 10-31-2021 19:13-0400 Body weight 86.18 kg Dante Kim MD Work Phone: [facility] 10-29-2021 07:38-0400 Body temperature 97.81 [degF] Lisa Miguel Angel DO Work Phone: [facility] 10-29-2021 07:38-0400 Diastolic blood pressure 79 mm[Hg] Lisa Miguel Angel DO Work Phone: [facility] 10-29-2021 07:38-0400 Heart rate 80 /min Lisa Miguel Angel DO Work Phone: [facility] 10-29-2021 07:38-0400 Respiratory rate 18 /min Lisa Miguel Angel DO Work Phone: [facility] 10-29-2021 07:38-0400 SaO2% (BldA) [Mass fraction] 96 % Lisa Miguel Angel DO Work Phone: [facility] 10-29-2021 07:38-0400 Systolic blood pressure 123 mm[Hg] Lisa Miguel Angel DO Work Phone: [facility] 10-25-2021 13:55-0400 Body height 170.2 cm Lisa Michelle DO Work Phone: [facility] 10-21-2021 00:57-0400 Body mass index (BMI) [Ratio] 37.58 kg/m2 Lisa Michelle DO Work Phone: [facility] 10-21-2021 00:57-0400 Body weight 108.86 kg Lisa Michelle DO Work Phone: [facility] 07-13-2020 13:21-0500 BMI (Body Mass Index) 40.47 kg/m2 Monika Staley [facility] Work Phone: 07-13-2020 13:21-0500 Body Temperature 98 [degF] Shiela Stuart [facility] Work Phone: 07-13-2020 13:21-0500 Body weight 124.31 kg Shiela Stuart [facility] Work Phone: 07-13-2020 13:21-0500 BP Diastolic 78 mm[Hg] Shiela Luís [facility] Work Phone: 07-13-2020 13:21-0500 BP Systolic 138 mm[Hg] Monika Staley [facility] Work Phone: 07-13-2020 13:21-0500 BSA (Body Surface Area) 2.36 m2 Monika Staley [facility] Work Phone: 04-13-2020 15:33-0500 BMI (Body Mass Index) 40.32 kg/m2 Wing Ritter [facility] Work Phone: 04-13-2020 15:33-0500 Body weight 123.83 kg Wing Ritter [facility] Work Phone: 04-13-2020 15:33-0500 BP Diastolic 82 mm[Hg] Wing Ritter [facility] Work Phone: Comment on above: Location: [facility]; Position: Sitting 04-13-2020 15:33-0500 BP Systolic 145 mm[Hg] Wing Ritter [facility] Work Phone: Comment on above: Location: [facility]; Position: Sitting 04-13-2020 15:33-0500 BSA (Body Surface Area) 2.36 m2 Wing Ritter [facility] Work Phone: 04-13-2020 15:33-0500 Height 175.26 cm Wing Ritter [facility] Work Phone: 04-13-2020 15:33-0500 Pulse (Heart Rate) 98 /min Wing Ritter [facility] Work Phone: 04-13-2020 15:33-0500 Pulse Oximetry 98 % Wing Ritter [facility] Work Phone: Comment on above: Source: 04-13-2020 15:33-0500 0 1 Wing Ritter [facility] Work Phone: Comment on above: Pain Scale 01-20-2020 16:39-0400 Body height 175.26 cm Monika Staley MD [facility] [address] [place] Work Phone: 01-20-2020 16:39-0400 Body mass index (BMI) [Ratio] 39.28 kg/m2 Monika Staley MD ZA-Amnhinjzba-Bjj [facility] [address] [place] Work Phone: 01-20-2020 16:39-0400 Body surface area Derived from formula 2.33 m2 Monika Staley MD UD-Ouihebyerw-Ugf [facility] [address] [place] Work Phone: 01-20-2020 16:39-0400 Body weight 120.66 kg Monika Staley MD [facility] [address] [place] Work Phone: 01-20-2020 16:39-0400 Diastolic blood pressure 84 mm[Hg] Monika Staley MD DF-Gtkvounktc-Qod [facility] [address] [place] Work Phone: Comment on above: Location: [facility]; Position: Sitting 01-20-2020 16:39-0400 Heart rate 80 /min Monika Staley MD [facility] [address] [place] Work Phone: 01-20-2020 16:39-0400 SaO2% (BldA) [Mass fraction] 100 % Monika Staley MD FX-Sevtaokinn-Ftm [facility] [address] [place] Work Phone: Comment on above: Source: 01-20-2020 16:39-0400 Systolic blood pressure 144 mm[Hg] Monika Staley MD JH-Nwkgfxjozs-Wjw [facility] [address] [place] Work Phone: Comment on above: Location: [facility]; Position: Sitting 11-06-2019 15:29-0400 BMI (Body Mass Index) 38.31 kg/m2 Monika Staley [facility] Work Phone: 11-06-2019 15:29-0400 Body Temperature 97.6 [degF] Monika Staley [facility] Work Phone: 11-06-2019 15:29-0400 Body weight 117.66 kg Monika Staley [facility] Work Phone: 11-06-2019 15:29-0400 BP Diastolic 62 mm[Hg] Monika Staley [facility] Work Phone: 11-06-2019 15:29-0400 BP Systolic 140 mm[Hg] Monika Staley [facility] Work Phone: 11-06-2019 15:29-0400 BSA (Body Surface Area) 2.31 m2 Monika Staley [facility] Work Phone: 11-06-2019 15:29-0400 Height 175.26 cm Monika Staley [facility] Work Phone: Encounters Encounter Date Encounter Type Care Provider Facility Start: 12-11-2024 ambulatory Peter Katsaros OLS Faci lity:[facility] Start: 12-08-2024 ambulatory Mahaveer Mukka flash OLS Facility:[facility] Start: 12-04-2024 ambulatory Mahaveer Mukka flash OLS Facility:[facility] Start: 12-02-2024 ambulatory Mahaveer Mukka flash OLS Facility:[facility] Start: 12-01-2024 ambulatory Peter Maribelsaros OLS Faci lity:[facility] Start: 11-28-2024 ambulatory Peter Katsaros OLS Faci lity:[facility] Start: 11-27-2024 ambulatory Mahaveer Mukka flash OLS Facility:[facility] Start: 11-24-2024 ambulatory Mahaveer Mukka flash OLS Facility:[facility] Start: 11-20-2024 ambulatory Mahaveer Mukka flash OLS Facility:[facility] Start: 11-17-2024 ambulatory Mahaveer Mukka flash OLS Facility:[facility] Start: 11-13-2024 ambulatory Mahaveer Mukka flash OLS Facility:[facility] Start: 11-10-2024 ambulatory Mahaveer Mukka flash OLS Facility:[facility] Start: 11-06-2024 ambulatory Mahaveer Mukka flash OLS Facility:[facility] Start: 11-03-2024 ambulatory Peter Katsaros OLS Faci lity:[facility] Start: 10-30-2024 ambulatory Mahaveer Mukka flash OLS Facility:[facility] Start: 10-30-2024 [facility] Start: 10-27-2024 ambulatory Mahaveer Mukka flash SCARLET Facility:[facility] Start: 10-27-2024 [facility]istered [facility] Start: 10-23-2024 ambulatory Mahaveer Mukka flash SCARLET Facility:[facility] Start: 10-23-2024 [facility] Start: 10-20-2024 ambulatory Karon jack muellera OLS Facility:[facility] Start: 10-20-2024 Registered Referred Karon casillas MD -[facility] Start: 10-16-2024 ambulatory Karon jack muellera OLS Facility:[facility] Start: 10-16-2024 Registered Referred Karon casillas MD -[facility] Start: 10-13-2024 ambulatory Carlos Maribelkameron NOVAK Faci lity:[facility] Start: 10-13-2024 Registered Referred Carlos Cavazos - [facility] Start: 10-09-2024 ambulatory [facility] Facility:[facility] Start: 10-09-2024 Registered Referred Karon casillas MD [facility] Start: 10-06-2024 ambulatory Carlos Maribelkameron NOVAK Faci lity:[facility] Start: 10-06-2024 Registered Referred Carlos Cavazos - [facility] Start: 10-02-2024 [facility] Start: 10-02-2024 Registered [facility] Start: 09-30-2024 End: 09-30-[address] Monika Staley MD Work Phone: [facility] Work Phone: Start: 09-30-2024 End: 09-30-2024 [facility]ed [facility] Start: 09-30-2024 Registered [facility] Start: 09-30-2024 End: 09-30-2024 ambulatory Carlaamber Nubiashellie OLS Facility:[facility] Start: 09-25-2024 [facility]ulatory [facility] Start: 09-25-2024 [facility]istered [facility] Start: 09-22-2024 End: 09-22-[address] Monika Staley MD Work Phone: [facility] Start: 09-22-2024 End: 09-22-2024 Departed Referred Karon Corrales MD -[facility] Start: 09-22-2024 Registered Referred Karon casillas MD -[facility] [employer] [facility] Start: 09-22-2024 End: 09-22-2024 ambulatory Karon Corrales OLS Facility:[facility] Start: 09-18-2024 End: 09-18-[address] Monika Staley MD Work Phone: [facility] Start: 09-18-2024 End: 09-18-2024 Departed Referred Karon Corrales MD -[facility] Start: 09-18-2024 Registered Referred Karon casillas MD -[facility] Start: 09-18-2024 End: 09-18-2024 ambulatory Karon Corrales OLS Facility:[facility] Start: 09-15-2024 End: 09-15-[address] Monika Staley MD Work Phone: [facility] Work Phone: Start: 09-15-2024 End: 09-15-2024 Departed Referred Carlos Cavazos -[facility] Start: 09-15-2024 Registered Referred Carlos Cavazos - [facility] Start: 09-15-2024 End: 09-15-2024 ambulatory Carlos Cavazos OLS Facility:[facility] Start: 09-11-2024 ambulatory Carlaamber Eleni muellera OLS Facility:[facility] Start: 09-11-2024 Registered Referred Karon casillas MD -[facility] Start: 09-08-2024 End: 09-08-[address] Monika Staley MD Work Phone: [facility] Work Phone: Start: 09-08-2024 End: 09-08-2024 Departed Referred Karon Corrales MD -[facility] [facility] Start: 09-08-2024 Registered Referred Karon casillas MD -[facility] [employer] [facility] Start: 09-08-2024 End: 09-08-2024 ambulatory Karon NOVAK Facility:[facility] Start: 09-04-2024 End: 09-04-2024 Departed Referred Carlos Lópezsaros -[facility] Start: 09-04-2024 Registered Referred Carlos Lópezsaros - [facility] Start: 09-04-2024 End: 09-04-2024 ambulatory Carlos NOVAK Facility:[facility] Start: 09-01-2024 End: 09-01-[address] Monika Staley MD Work Phone: [facility] Work Phone: Start: 09-01-2024 End: 09-01-2024 Departed Referred Carlos Lópezsaros -[facility] [facility] Start: 09-01-2024 Registered Referred Carlos Lópezsaros - [facility] [facility] Start: 09-01-2024 End: 09-01-2024 ambulatory Carlos NOVAK Facility:[facility] Start: 08-28-2024 End: 08-28-[address] Monika Staley MD Work Phone: [facility] Work Phone: Start: 08-28-2024 End: 08-28-2024 Departed Referred Carlos Lópezsaros -[facility] Start: 08-28-2024 Registered Referred Carlos Lópezsaros - [facility] Start: 08-28-2024 End: 08-28-2024 ambulatory Carlos NOVAK Facility:[facility] Start: 08-25-2024 End: 08-25-[address] Monika Staley MD Work Phone: [facility] Work Phone: Start: 08-25-2024 End: 08-25-2024 Departed Referred Karon Corrales MD -[facility] Start: 08-25-2024 Registered [facility] Start: 08-25-2024 End: 08-25-2024 ambulatory Carlaamber Farmera OLS Facility:[facility] Start: 08-21-2024 End: 08-21-[address] Monika Staley MD Work Phone: [facility] Work Phone: Start: 08-21-2024 End: 08-21-2024 Departed Referred Karon Corrales MD -[facility] Start: 08-21-2024 Registered Referred Karon casillas MD -[facility] Start: 08-21-2024 End: 08-21-2024 ambulatory Karon Corrales OLS Facility:[facility] Start: 08-18-2024 End: 08-18-[address] Monika Staley MD Work Phone: [facility] Work Phone: Start: 08-18-2024 End: 08-18-2024 [facility]ed [facility] Start: 08-18-2024 Registered [facility] Start: 08-18-2024 End: 08-18-2024 ambulatory Carlaamber Corrales OLS Facility:[facility] Start: 08-14-2024 End: 08-14-[address] Monika Staley MD Work Phone: [facility] Work Phone: Start: 08-14-2024 End: 08-14-2024 [facility]ed [facility] [employer] Start: 08-14-2024 Registered Referred Karon casillas MD -[facility] Start: 08-14-2024 End: 08-14-2024 ambulatory Karon NOVAK Facility:[facility] Start: 08-11-2024 End: 08-11-2024 Departed Referred Karon Corrales MD -[facility] Start: 08-11-2024 Registered Referred Karon casillas MD -[facility] Start: 08-11-2024 End: 08-11-2024 ambulatory Karon NOVAK Facility:[facility] Start: 08-07-2024 End: 08-07-2024 Departed Referred Carlos Cavazos [facility] Start: 08-07-2024 Registered Referred Carlos Cavazos - [employer] [facility] [facility] Start: 08-07-2024 End: 08-07-2024 ambulatory Carlos Cavazos OLS Facility:[facility] Start: 08-04-2024 End: 08-04-[address] Monika Staley MD Work Phone: [facility] Work Phone: Start: 08-04-2024 End: 08-04-2024 Departed Referred Carlos Cavazos [facility] [facility] [facility] Start: 08-04-2024 Registered Referred Carlos Cavazos - [facility] Start: 08-04-2024 End: 08-04-2024 ambulatory Carlos NOVAK Facility:[facility] Start: 07-31-2024 End: 07-31-[address] Monika Staley MD Work Phone: [facility] Work Phone: Start: 07-31-2024 End: 07-31-2024 Departed Referred Karon Corrales MD -[facility] Start: 07-31-2024 Registered Referred Karon casillas MD -[facility] Start: 07-31-2024 End: 07-31-2024 ambulatory Karon NOVAK Facility:[facility] Start: 07-28-2024 End: 07-28-[address] Monika Staley MD Work Phone: [facility] Work Phone: Start: 07-28-2024 End: 07-28-2024 Departed Referred Karon Corrales MD -[facility] Start: 07-28-2024 Registered Referred Karon casillas MD -[facility] Start: 07-28-2024 End: 07-28-2024 ambulatory Karon NOAVK Facility:[facility] Start: 07-25-2024 End: 07-25-[address] Monika Staley MD Work Phone: [facility] Work Phone: Start: 07-25-2024 End: 07-25-2024 Departed Referred Carlos Cavazos -[employer] [facility] Start: 07-25-2024 Registered Referred Carlos Cavazos - [employer] [facility] Start: 07-24-2024 End: 07-25-[address] Monika Staley MD Work Phone: [facility] Work Phone: Start: 07-24-2024 End: 07-24-2024 Departed Referred Karon Corrales MD -[facility] Start: 07-24-2024 Registered Referred Karon casillas MD -[employer] [facility] [employer] [facility] Start: 07-24-2024 End: 07-24-2024 ambulatory Karon NOVAK Facility:[facility] Start: 07-21-2024 End: 07-21-[address] Monika Staley MD Work Phone: [facility] Work Phone: Start: 07-21-2024 End: 07-21-2024 Departed Referred Karon Corrales MD -[facility] [facility] Start: 07-21-2024 Registered Referred Karon casillas MD -[facility] Start: 07-21-2024 End: 07-21-2024 ambulatory Karon NOVAK Facility:[facility] Start: 07-17-2024 End: 07-17-[address] Monika Staley MD Work Phone: [facility] Work Phone: Start: 07-17-2024 End: 07-17-2024 Departed Referred Karon Corrales MD -[facility] Start: 07-17-2024 Registered Referred Karon casillas MD -[employer] [facility] Start: 07-17-2024 End: 07-17-2024 ambulatory Karon NOVAK Facility:[facility] Start: 07-14-2024 End: 07-14-[address] Monika Staley MD Work Phone: [facility] Work Phone: Start: 07-14-2024 End: 07-14-2024 Departed Referred Carlos Cavazos -[facility] Start: 07-14-2024 Registered Referred Carlos Cavazos - [employer] [facility] Start: 07-14-2024 End: 07-14-2024 ambulatory Carlos NOVAK Facility:[facility] Start: 07-11-2024 End: 07-11-[address] Monika Staley MD Work Phone: [facility] Work Phone: Start: 07-11-2024 End: 07-11-2024 Departed Referred Carlos Cavazos -[facility] Start: 07-11-2024 Registered Referred Carlos Cavazos - [employer] [facility] Start: 07-11-2024 End: 07-11-2024 ambulatory Carlos NOVAK Facility:[facility] Start: 07-07-2024 End: 07-07-[address] Monika Staley MD Work Phone: [facility] Work Phone: Start: 07-07-2024 End: 07-07-2024 Departed Referred Karon Corrales MD -[facility] Start: 07-07-2024 Registered Referred [facility] Start: 07-07-2024 End: 07-07-2024 ambulatory Karon NOVAK Facility:[facility] Start: 07-03-2024 End: 07-03-[address] Monika Staley MD Work Phone: [facility] Work Phone: Start: 07-03-2024 End: 07-03-2024 Departed Referred Kvng Crisostomo MD -[facility] Start: 07-03-2024 Registered Referred Kvng Crisostomo MD -[facility] Start: 07-03-2024 End: 07-03-2024 ambulatory Kvng NOVAK Facility:[facility] Start: 06-30-2024 End: 06-30-[address] Monika Staley MD Work Phone: [facility] Work Phone: Start: 06-30-2024 End: 06-30-2024 Departed Referred Kvng Crisostomo MD -[facility] Start: 06-30-2024 Registered Referred Kvng Crisostomo MD -[facility] Start: 06-30-2024 End: 06-30-2024 ambulatory Kvng NOVAK Facility:[facility] Start: 06-26-2024 ambulatory Kvng NOVAK Fac ility:[facility] Start: 06-26-2024 Registered Referred Kvng Crisostomo MD -[facility] Start: 06-23-2024 End: 06-23-[address] Monika Staley MD Work Phone: [facility] Work Phone: Start: 06-23-2024 End: 06-23-2024 Departed Referred Carlos Cavazos -[employer] [facility] Start: 06-23-2024 Registered Referred Carlos Cavazos - [employer] [facility] Start: 06-23-2024 End: 06-23-2024 ambulatory Carlos NOVAK Facility:[facility] Start: 06-19-2024 End: 06-19-[address] Monika Staley MD Work Phone: [facility] Work Phone: Start: 06-19-2024 End: 06-19-2024 Departed Referred Kvng Crisostomo MD -[facility] [facility] Start: 06-19-2024 Registered Referred Kvng Crisostomo MD -[employer] [facility] [employer] [facility] Start: 06-19-2024 End: 06-19-2024 ambulatory Kvng NOVAK Facility:[facility] Start: 06-16-2024 End: 06-16-[address] Monika Staley MD Work Phone: [facility] Work Phone: Start: 06-16-2024 End: 06-16-2024 [facility]ed [facility] Start: 06-16-2024 Registered Referred Kvng Crisostomo MD -[facility] Start: 06-16-2024 End: 06-16-2024 ambulatory Kvng NOVAK Facility:[facility] Start: 06-12-2024 End: 06-12-[address] Monika Staley MD Work Phone: [facility] Work Phone: Start: 06-12-2024 End: 06-12-2024 Dep[facility]ed [facility] Start: 06-12-2024 Registered [facility] Start: 06-12-2024 End: 06-12-2024 ambulatory Kvng NOVAK Facility:[facility] Start: 06-09-2024 End: 06-09-[address] Monika Staley MD Work Phone: [facility] Work Phone: Start: 06-09-2024 End: 06-09-2024 Departed Referred Carlos Cavazos [facility] [employer] Start: 06-09-2024 Registered Referred Carlos Cavazos - [employer] [facility] [employer] Start: 06-09-2024 End: 06-09-2024 ambulatory Carlos NOVAK Facility:[facility] Start: 06-05-2024 End: 06-05-[address] Monika Staley MD Work Phone: [facility] Work Phone: Start: 06-05-2024 End: 06-05-2024 Departed Referred Kvng Crisostomo [facility] Start: 06-05-2024 End: 06-05-2024 ambulatory Kvng NOVAK Facility:[facility] Start: 06-02-2024 End: 06-02-[address] Monika Staley MD Work Phone: [facility] Work Phone: Start: 06-02-2024 End: 06-02-2024 Departed Referred Kvng Crisostomo MD -[facility] Start: 06-02-2024 Registered Referred Kvng Crisostomo MD -[employer] Start: 06-02-2024 End: 06-02-2024 ambulatory Kvng NOVAK Facility:[facility] Start: 05-29-2024 End: 05-29-[address] Monika Staley MD Work Phone: [facility] Work Phone: Start: 05-29-2024 End: 05-29-2024 Departed Referred Kvng Crisostomo MD -[facility] Start: 05-29-2024 Registered Referred Kvng Crisostomo MD -[employer] Start: 05-29-2024 End: 05-29-2024 ambulatory Kvng NOVAK Facility:[facility] Start: 05-26-2024 End: 05-26-[address] Monika Staley MD Work Phone: [facility] Work Phone: Start: 05-26-2024 End: 05-26-2024 Departed Referred Carlos Cavazos -[employer] Start: 05-26-2024 Registered Referred Carlos Cavazos - [employer] Start: 05-26-2024 End: 05-26-2024 ambulatory Carlos NOVAK Facility:[facility] Start: 05-22-2024 ambulatory Kvng NOVAK Fac ility:[facility] Start: 05-22-2024 Registered Referred Kvng Crisostomo MD -[employer] Start: 05-20-2024 End: 05-20-2024 Departed Referred Kvng Crisostomo MD -[employer] Start: 05-19-2024 End: 05-20-2024 ambulatory Kvng NOVAK Facility:[facility] Start: 05-19-2024 Registered Referred Kvng Crisostomo MD -[employer] Start: 05-15-2024 End: 05-15-2024 Departed Referred Kvng Crisostomo MD -[employer] Start: 05-15-2024 End: 05-15-2024 ambulatory Kvng NOVAK Facility:[facility] Start: 05-12-2024 End: 05-12-2024 Departed Referred Carlos Cavazos -[employer] Start: 05-12-2024 End: 05-12-2024 ambulatory Carlos NOVAK Facility:[facility] Start: 05-09-2024 End: 05-09-2024 Departed Referred Kvng Crisostomo MD -[employer] Start: 05-09-2024 End: 05-09-2024 ambulatory Kvng NOVAK Facility:[facility] Start: 05-08-2024 End: 05-08-2024 Departed Referred [facility] Start: 05-08-2024 End: 05-08-2024 ambulatory Elizabethmilton Andressa NOVAK Facility:[facility] Start: 05-05-2024 End: 05-05-2024 Departed Referred [facility] [employer] [facility] Start: 05-05-2024 End: 05-05-2024 ambulatory Kvng NOVAK Facility:[facility] Start: 05-01-2024 End: 05-01-2024 Departed Referred [facility] [employer] [facility] Start: 05-01-2024 End: 05-01-2024 ambulatory Kvng NOVAK Facility:[facility] Start: 04-28-2024 End: 04-28-2024 Departed Referred Carlos Cavazos -[employer] Start: 04-28-2024 End: 04-28-2024 ambulatory Carlos NOVAK Facility:[facility] Start: 04-24-2024 End: 04-24-2024 Departed Referred [facility] [employer] [facility] Start: 04-24-2024 End: 04-24-2024 ambulatory Kvng NOVAK Facility:[facility] Start: 04-21-2024 End: 04-21-2024 Departed Referred Carlos Cavazos [facility] Start: 04-21-2024 End: 04-21-2024 ambulatory Carlos NOVAK Facility:[facility] Start: 04-17-2024 ambulatory Avisgerson Andressa NOVAK Fac ility:[facility] Start: 04-17-2024 Registered Referred [facility] Start: 04-14-2024 ambulatory Kvng NOVAK Fac ility:[facility] Start: 04-14-2024 Registered Referred [facility] [employer] [facility] Start: 04-10-2024 End: 04-10-2024 Departed Referred Babbaljeet Crisostomo MD -[employer] Start: 04-10-2024 End: 04-10-2024 ambulatory Kvng NOVAK Facility:[facility] Start: 04-07-2024 End: 04-07-2024 Departed Referred Carlos Cavazos -[employer] Start: 04-07-2024 End: 04-07-2024 ambulatory Carlos NOVAK Facility:[facility] Start: 04-04-2024 ambulatory Kvng NOVAK Fac ility:[facility] Start: 04-04-2024 Registered Referred Kvng Crisostomo MD -[employer] Start: 03-31-2024 End: 03-31-2024 Departed Referred Carlos Cavazos -[employer] Start: 03-31-2024 End: 03-31-2024 ambulatory Carlos NOVAK Facility:[facility] Start: 03-27-2024 End: 03-27-2024 Departed Referred [facility] [employer] Start: 03-27-2024 End: 03-27-2024 ambulatory [facility] Start: 03-24-2024 End: 03-24-2024 Departed Referred Kvng Crisostomo MD -[employer] Start: 03-24-2024 End: 03-24-2024 ambulatory Kvng NOVAK Facility:[facility] Start: 03-20-2024 End: 03-20-2024 Departed Referred [facility] [employer] Start: 03-20-2024 End: 03-20-2024 ambulatory [facility] Start: 03-19-2024 End: 03-19-2024 Departed Referred Kvng Crisostomo MD -[facility] [employer] Start: 03-19-2024 End: 03-19-2024 ambulatory Kvng NOVAK Facility:[facility] Start: 03-18-2024 End: 03-18-2024 Departed Referred [facility] [employer] Start: 03-18-2024 End: 03-18-2024 ambulatory [facility] Facility[facility] Start: 03-17-2024 End: 03-17-2024 Departed Referred [facility] [employer] Start: 03-17-2024 End: 03-17-2024 ambulatory [facility] Facility[facility] Start: 03-14-2024 End: 03-14-2024 Departed Referred Carlos Maribelkameron -[employer] Start: 03-14-2024 End: 03-14-2024 ambulatory Carlos Cavazos OLS Facility:[facility] Start: 03-13-2024 End: 03-13-2024 Departed Referred [facility] [employer] Start: 03-13-2024 End: 03-13-2024 ambulatory [facility] Start: 03-10-2024 End: 03-10-2024 ambulatory [facility] Start: 03-06-2024 End: 03-06-2024 ambulatory [facility] Start: 03-03-2024 End: 03-03-2024 ambulatory [facility] Start: 02-28-2024 End: 02-28-2024 ambulatory [facility] Start: 02-25-2024 End: 02-25-2024 ambulatory Carlos NOVAK Facility:[facility] Start: 02-21-2024 End: 02-21-2024 ambulatory [facility] Start: 02-18-2024 End: 02-18-2024 ambulatory [facility] Start: 02-14-2024 End: 02-14-2024 ambulatory [facility] Start: 02-12-2024 End: 02-12-2024 ambulatory Carlos Cavazos OLS Facility:[facility] Start: 02-11-2024 End: 02-11-2024 ambulatory [facility] Start: 02-08-2024 End: 02-08-2024 ambulatory Carlos NOVAK Facility:[facility] Start: 02-07-2024 End: 02-07-2024 ambulatory Peter Katsaros OLS Facility:[facility] Start: 02-04-2024 End: 02-04-2024 ambulatory Peter Katsaros OLS Facility:[facility] Start: 02-01-2024 ambulatory Carlos Katsaros OLS Faci lity:[facility] Start: 01-30-2024 End: 01-30-2024 ambulatory Carlos Katsaros OLS Facility:[facility] Start: 01-29-2024 End: 01-29-2024 ambulatory [facility] Start: 01-21-2024 End: 01-21-2024 ambulatory Carlos Katsaros OLS Facility:[facility] Start: 01-14-2024 End: 01-14-2024 ambulatory Carlos Katsaros OLS Facility:[facility] Start: 01-11-2024 ambulatory Carlos Katsaros OLS Faci lity:[facility] Start: 01-10-2024 End: 01-10-2024 ambulatory [facility] Facility[facility] Start: 01-08-2024 End: 01-08-2024 ambulatory Peter Katsaros OLS Facility:[facility] Start: 01-01-2024 End: 01-02-2024 ambulatory Carlos Katsaros OLS Facility:[facility] Start: 12-27-2023 End: 12-27-2023 ambulatory Carlos Katsaros OLS Facility:[facility] Start: 12-24-2023 End: 12-24-2023 ambulatory Peter Katsaros OLS Facility:[facility] Start: 12-17-2023 End: 12-17-2023 ambulatory Peter Katsaros OLS Facility:[facility] Start: 09-13-2023 End: 09-13-2023 [facility] Start: 09-13-2023 End: 09-13-2023 Office outpatient visit 25 minutes Rebecca Buck MD Work Phone: [facility] Urology Comment on above: Left flank pain (Christina magui Dx); BPH with urinary obstruction; History of kidney stones Start: 09-06-2023 End: 09-07-[address] [facility] Start: 09-06-2023 End: 09-06-2023 Subsequent hospital visit by physician Rebecca Buck MD Work Phone: [facility] CT Imaging Comment on above: Left flank pain; Calculus of ureter Start: 08-31-2023 ambulatory Eloise Stern RN [facility] Start: 08-31-2023 Patient encounter procedure Eloise Stern RN [facility] Start: 08-21-2023 Telephone encounter Rebecca Buck MD Work Phone: [facility] Clinical Communication Comment on above: CT appt Boaz advice Start: 08-21-2023 Registered Referred [facility] [employer] Start: 08-13-2023 End: 08-13-[address] [facility] Start: 08-13-2023 End: 08-13-2023 Office outpatient new 45 minutes Rebecca Buck MD Work Phone: [facility] Comment on above: Left flank pain (Christina magui Dx); Calculus of ureter; Disease of prostate; BPH with urinary obstruction Start: 08-03-2023 End: 08-03-2023 ambulatory [facility] Work Phone: Start: 08-03-2023 End: 08-03-2023 Departed Referred [facility] [employer] Start: 07-20-2023 End: 07-20-2023 ambulatory [facility] Work Phone: Start: 07-20-2023 End: 07-20-2023 Departed Referred [facility] [employer] Start: 07-20-2023 Registered Referred [facility] [employer] Start: 07-18-2023 End: 07-18-2023 ambulatory [facility] Work Phone: Start: 07-18-2023 End: 07-18-2023 Departed Referred [facility] [employer] Start: 07-18-2023 Registered Referred [facility] [employer] Start: 07-16-2023 End: 07-16-2023 ambulatory [facility] Work Phone: Start: 07-16-2023 End: 07-16-2023 [facility] Start: 07-16-2023 [facility] Start: 07-13-2023 End: 07-13-2023 ambulatory [facility] Work Phone: Start: 07-13-2023 End: 07-13-2023 [facility] Start: 07-13-2023 [facility] Start: 07-12-2023 End: 07-12-2023 ambulatory [facility] Work Phone: Start: 07-12-2023 End: 07-12-2023 [facility] Start: 07-12-2023 [facility]istered [facility] Start: 07-05-2023 End: 07-05-2023 ambulatory [facility] Work Phone: Start: 07-05-2023 End: 07-05-2023 [facility] Start: 07-05-2023 [facility] Start: 07-02-2023 Registered [facility] Start: 06-28-2023 End: 06-28-2023 ambulatory [facility] Work Phone: Start: 06-28-2023 End: 06-28-2023 [facility] Start: 06-28-2023 [facility]istered [facility] Start: 06-25-2023 Telephone encounter Rebecca Buck MD Work Phone: [facility] Start: 06-25-2023 End: 06-25-2023 ambulatory [facility] Work Phone: Start: 06-25-2023 End: 06-25-2023 Departed Referred [facility] Start: 06-25-2023 [facility] [facility] [employer] Start: 06-21-2023 End: 06-21-2023 ambulatory [facility] Work Phone: Start: 06-21-2023 End: 06-21-2023 [facility] Start: 06-21-2023 Registered [facility] Start: 06-13-2023 End: 06-13-2023 ambulatory [facility] Work Phone: Start: 06-13-2023 End: 06-13-2023 [facility] Start: 06-06-2023 End: 06-06-2023 ambulatory [facility] Work Phone: Start: 06-06-2023 End: 06-06-2023 [facility] Start: 06-06-2023 Registered [facility] Start: 05-23-2023 End: 05-23-2023 ambulatory [facility] Work Phone: Start: 05-23-2023 End: 05-23-2023 [facility] Start: 05-09-2023 End: 05-09-2023 Departed Referred [facility] Start: 05-09-2023 Registered Referred [facility] Start: 04-23-2023 End: 04-23-2023 Departed Referred [facility] Start: 04-09-2023 End: 04-09-2023 ambulatory [facility] Work Phone: Start: 04-09-2023 End: 04-09-2023 [facility] [facility] Start: 04-09-2023 Registered [facility] Start: 04-02-2023 End: 04-02-2023 ambulatory [facility] Work Phone: Start: 04-02-2023 End: 04-02-2023 [facility] Start: 04-02-2023 Registered [facility] Start: 03-26-2023 End: 03-26-2023 ambulatory [facility] Work Phone: Start: 03-26-2023 End: 03-26-2023 [facility] Start: 03-26-2023 Registered [facility] Start: 03-22-2023 End: 03-22-2023 ambulatory [facility] Work Phone: Start: 03-22-2023 End: 03-22-2023 [facility] Start: 03-22-2023 Registered [facility] Start: 03-08-2023 End: 03-08-2023 ambulatory [facility] Work Phone: Start: 03-08-2023 End: 03-08-2023 [facility] Start: 02-22-2023 End: 02-22-2023 ambulatory [facility] Work Phone: Start: 02-22-2023 End: 02-22-2023 [facility] Start: 02-22-2023 Registered [facility] Start: 02-15-2023 End: 02-15-2023 ambulatory [facility] Work Phone: Start: 02-15-2023 End: 02-15-2023 Dep[facility] Start: 02-15-2023 Registered Referred [facility] Start: 02-08-2023 End: 02-08-2023 ambulatory [facility] Work Phone: Start: 02-08-2023 End: 02-08-2023 Departed Referred [facility] Start: 01-31-2023 End: 01-31-2023 ambulatory [facility] Work Phone: Start: 01-31-2023 End: 01-31-2023 [facility] Start: 01-31-2023 Registered Referred [facility] Start: 01-29-2023 End: 01-29-2023 [facility] Start: 01-29-2023 Registered Referred [facility] Start: 01-26-2023 End: 01-26-2023 Departed Referred [facility] Start: 01-26-2023 Registered Referred [facility] Start: 01-24-2023 End: 01-24-2023 Departed Referred [facility] Start: 01-24-2023 Registered Referred [facility] Start: 01-22-2023 End: 01-22-2023 ambulatory [facility] Work Phone: Start: 01-22-2023 End: 01-22-2023 Departed Referred [facility] Start: 01-22-2023 Registered Referred [facility] Start: 01-10-2023 End: 01-10-2023 ambulatory [facility] Work Phone: Start: 01-10-2023 End: 01-10-2023 [facility] Start: 01-10-2023 Registered Referred [facility] Start: 12-27-2022 End: 12-27-2022 ambulatory [facility] Work Phone: Start: 12-27-2022 End: 12-27-2022 Dep[facility] Start: 12-27-2022 Registered [facility] Start: 12-21-2022 End: 12-21-2022 ambulatory [facility] Work Phone: Start: 12-21-2022 End: 12-21-2022 Dep[facility]ed [facility] [facility] Start: 12-21-2022 Registered [facility] Start: 12-14-2022 End: 12-14-2022 ambulatory [facility] Work Phone: Start: 12-14-2022 End: 12-14-2022 Dep[facility] Start: 12-14-2022 Registered [facility] Start: 12-07-2022 End: 12-07-2022 ambulatory [facility] Work Phone: Start: 12-07-2022 End: 12-07-2022 Dep[facility] Start: 12-07-2022 Registered [facility] Start: 11-24-2022 End: 11-24-2022 ambulatory [facility] Work Phone: Start: 11-24-2022 End: 11-24-2022 [facility]ed [facility] Start: 11-24-2022 [facility] [employer] [facility] Start: 11-23-2022 End: 11-23-2022 ambulatory [facility] Work Phone: Start: 11-23-2022 End: 11-23-2022 [facility]ed [facility] Start: 11-23-2022 Registered Referred [facility] Start: 11-22-2022 End: 11-22-2022 ambulatory [facility] Work Phone: Start: 11-22-2022 End: 11-22-2022 Departed Referred [facility] Start: 11-22-2022 Registered Referred [facility] Start: 11-09-2022 End: 11-09-2022 ambulatory [facility] Work Phone: Start: 11-09-2022 End: 11-09-2022 [facility] Start: 11-09-2022 Registered Referred [facility] Start: 10-26-2022 End: 10-26-2022 Dep[facility] Start: 10-26-2022 Registered Referred [facility] Start: 10-12-2022 End: 10-12-2022 ambulatory [facility] Work Phone: Start: 10-12-2022 End: 10-12-2022 [facility] Start: 10-12-2022 Registered [facility] Start: 10-05-2022 End: 10-05-2022 Dep[facility]ed [facility] Start: 10-05-2022 Registered Referred [facility] Start: 09-28-2022 End: 09-28-2022 ambulatory [facility] Work Phone: Start: 09-28-2022 End: 09-28-2022 [facility] Start: 09-14-2022 End: 09-14-2022 Dep[facility]ed [facility] Start: 08-31-2022 End: 08-31-2022 Departed Referred [facility] Start: 08-31-2022 [facility] Start: 08-23-2022 End: 08-23-2022 ambulatory [facility] Work Phone: Start: 08-23-2022 End: 08-23-2022 Departed Referred [facility] Start: 08-23-2022 Registered [facility] Start: 08-17-2022 End: 08-17-2022 ambulatory [facility] Work Phone: Start: 08-17-2022 End: 08-17-2022 [facility] Start: 08-17-2022 Registered [facility] Start: 08-14-2022 End: 08-14-2022 ambulatory [facility] Work Phone: Start: 08-14-2022 End: 08-14-2022 [facility] Start: 08-14-2022 [facility] [employer] [facility] Start: 07-31-2022 End: 07-31-2022 ambulatory [facility] Work Phone: Start: 07-31-2022 End: 07-31-2022 [facility] Start: 07-31-2022 Reg[facility] Start: 07-24-2022 End: 07-24-2022 ambulatory [facility] Work Phone: Start: 07-24-2022 End: 07-24-2022 [facility]ed [facility] Start: 07-24-2022 Registered [facility] Start: 07-20-2022 End: 07-20-2022 [facility]ed [facility] Start: 07-20-2022 Registered [facility] Start: 07-17-2022 End: 07-17-2022 [facility] Start: 07-17-2022 Registered [facility] Start: 07-11-2022 Registered [facility] Start: 07-10-2022 End: 07-10-2022 ambulatory [facility] Work Phone: Start: 07-10-2022 End: 07-10-2022 [facility] Start: 07-10-2022 Registered [facility] Start: 07-03-2022 End: 07-03-2022 ambulatory [facility] Work Phone: Start: 07-03-2022 End: 07-03-[address] [facility] [facility] Start: 07-03-2022 [facility] Start: 06-27-2022 End: 06-27-2022 ambulatory [facility] Work Phone: Start: 06-27-2022 End: 06-27-2022 [facility] Start: 06-27-2022 [facility] Start: 06-13-2022 End: 06-13-2022 ambulatory [facility] Work Phone: Start: 06-13-2022 End: 06-13-2022 [facility] Start: 06-13-2022 [facility] Start: 06-06-2022 End: 06-06-2022 ambulatory [facility] Work Phone: Start: 06-06-2022 End: 06-06-2022 [facility] Start: 06-06-2022 [facility] Start: 05-30-2022 End: 05-30-2022 ambulatory [facility] Work Phone: Start: 05-30-2022 End: 05-30-2022 [facility] Start: 05-30-2022 [facility] Start: 05-16-2022 End: 05-16-2022 ambulatory [facility] Work Phone: Start: 05-16-2022 End: 05-16-2022 [facility] Start: 05-16-2022 [facility] Start: 05-02-2022 End: 05-02-2022 ambulatory [facility] Work Phone: Start: 05-02-2022 End: 05-02-2022 [facility] Start: 05-02-2022 [facility] Start: 04-27-2022 End: 04-27-2022 ambulatory [facility] Work Phone: Start: 04-27-2022 End: 04-27-2022 [facility] [facility] Start: 04-27-2022 [facility]istered [facility] Start: 04-26-2022 End: 04-26-2022 ambulatory [facility] Work Phone: Start: 04-26-2022 End: 04-26-2022 [facility] [facility] Start: 04-11-2022 End: 04-11-2022 ambulatory [facility] Work Phone: Start: 04-11-2022 End: 04-11-2022 [facility] Start: 03-28-2022 End: 03-28-2022 Departed Referred [facility] [employer] Start: 03-28-2022 Registered Referred [facility] [employer] Start: 03-23-2022 End: 03-23-2022 [facility] [employer] Start: 03-23-2022 Registered Referred [facility] [employer] Start: 03-16-2022 End: 03-16-2022 ambulatory [facility] Work Phone: Start: 03-16-2022 End: 03-16-2022 Departed Referred [facility] [employer] Start: 03-16-2022 Registered Referred [facility] [employer] Start: 03-09-2022 End: 03-09-2022 ambulatory [facility] Work Phone: Start: 03-09-2022 End: 03-09-2022 Departed Referred [facility] [employer] Start: 03-09-2022 [facility] Start: 03-06-2022 End: 03-06-2022 ambulatory [facility] Work Phone: Start: 03-06-2022 End: 03-06-2022 Departed Referred [facility] Start: 03-06-2022 Registered Referred [facility] Start: 03-02-2022 End: 03-03-2022 Emergency department patient visit UNKNOWN PROVIDER [facility] Start: 03-02-2022 End: 03-02-2022 Emergency department patient visit Lanette Charli JIMENEZ Work Phone: [facility] Emergency Dept Comment on above: Fall, initial encoun ter (Primary Dx); Anticoagulated Start: 02-20-2022 End: 02-20-2022 Departed [facility]erred [facility] Start: 02-20-2022 Registered Referred [facility] Start: 02-13-2022 End: 02-13-2022 ambulatory [facility] Work Phone: Start: 02-13-2022 End: 02-13-2022 [facility] Start: 02-13-2022 [facility] [employer] Start: 02-06-2022 End: 02-06-2022 ambulatory [facility] Work Phone: Start: 02-06-2022 End: 02-06-2022 [facility] [employer] Start: 02-06-2022 [facility] [employer] Start: 01-30-2022 End: 01-30-2022 [facility] Start: 01-30-2022 [facility] [employer] Start: 01-26-2022 End: 01-26-2022 ambulatory [facility] Work Phone: Start: 01-26-2022 End: 01-26-2022 [facility] [employer] Start: 01-26-2022 [facility] Start: 01-19-2022 End: 01-19-2022 ambulatory [facility] Work Phone: Start: 01-19-2022 End: 01-19-2022 Departed [facility]erred [facility] [employer] Start: 01-19-2022 [facility] [employer] Start: 01-17-2022 ambulatory [facility] Start: 01-10-2022 ambulatory [facility] Start: 01-10-2022 End: 01-10-2022 ambulatory [facility] Work Phone: Start: 01-10-2022 End: 01-10-2022 [facility] [facility] Start: 01-10-2022 [facility] Start: 01-06-2022 AUDIT Monika Elias rt Work Phone: [facility] Work Phone: Start: 01-05-2022 End: 01-05-2022 [facility]ed [facility] [employer] [facility] Start: 01-05-2022 Registered Referred [facility] [employer] Start: 12-30-2021 End: 12-30-2021 [facility]ed [facility] Start: 12-30-2021 Registered Referred [facility] [employer] Start: 12-28-2021 End: 12-28-2021 ambulatory [facility] Work Phone: Start: 12-28-2021 End: 12-28-2021 [facility] Start: 12-28-2021 [facility] Start: 12-26-2021 End: 12-26-2021 ambulatory [facility] Work Phone: Start: 12-26-2021 End: 12-26-2021 [facility]ed [facility] Start: 12-26-2021 [facility] Start: 12-22-2021 End: 12-22-2021 ambulatory [facility] Work Phone: Start: 12-22-2021 End: 12-22-2021 [facility]ed [facility] Start: 12-22-2021 [facility] Start: 12-22-2021 End: 12-22-2021 [facility] Start: 12-21-2021 End: 12-22-2021 Emergency department patient visit Sharon Olivia MD Work Phone: [facility] Emergency Dept Comment on above: Heel ulceration, lef t, with unspecified severity (HCC) (Primary Dx) Start: 12-19-2021 End: 12-19-2021 ambulatory [facility] Work Phone: Start: 12-19-2021 End: 12-19-2021 Departed [facility] [employer] Start: 12-19-2021 Registered Referred [facility] [employer] Start: 12-12-2021 End: 12-12-2021 ambulatory [facility] Work Phone: Start: 12-12-2021 End: 12-12-2021 Departed [facility]erred [facility] [employer] Start: 12-12-2021 [facility] Start: 12-08-2021 End: 12-08-2021 ambulatory [facility] Work Phone: Start: 12-08-2021 End: 12-08-2021 [facility] [facility] Start: 12-08-2021 [facility] Start: 12-05-2021 End: 12-05-2021 ambulatory [facility] Work Phone: Start: 12-05-2021 End: 12-05-2021 [facility]ed [facility] Start: 12-05-2021 [facility] Start: 12-01-2021 End: 12-01-2021 [facility] Start: 12-01-2021 [facility] [employer] Start: 11-28-2021 End: 11-28-2021 [facility] Start: 11-28-2021 [facility] [employer] Start: 11-25-2021 Rx Renewal Monika Elias rt Work Phone: [id number] Work Phone: Start: 11-23-2021 End: 11-23-2021 Departed Referred [facility] Start: 11-23-2021 [facility] Start: 11-22-2021 End: 11-22-2021 Departed Referred [facility] Start: 11-22-2021 Registered Referred [facility] Start: 11-21-2021 End: 11-21-2021 Departed Referred [facility] Start: 11-15-2021 AUDIT Monika Elias rt Work Phone: [id number] Work Phone: Start: 11-14-2021 End: 11-14-2021 Departed Referred [facility] Start: 11-14-2021 Registered Referred [facility] Start: 11-08-2021 End: 11-08-2021 Departed Referred [facility] Start: 11-08-2021 Registered Referred [facility] Start: 11-04-2021 End: 11-04-2021 Departed Referred [facility] Start: 11-04-2021 Registered Referred [facility] Start: 10-31-2021 End: 11-01-2021 Emergency department patient visit UNKNOWN PROVIDER [employer] Start: 10-31-2021 End: 11-01-2021 Emergency department patient visit Dante Kim MD Work Phone: [facility] Emergency Dept Comment on above: Other fatigue (Prima ry Dx) Start: 10-31-2021 End: 10-31-2021 Departed Referred [facility] Start: 10-21-2021 End: 10-29-2021 Evaluation and management of inpatient UNKNOWN PROVIDER [facility] Start: 10-21-2021 End: 10-29-2021 Evaluation and management of inpatient Lisa Michelle DO Work Phone: [facility] Comment on above: Leg swelling (Primar y Dx); Acute deep vein thrombosis (DVT) of proximal vein of lower extremity, unspecified laterality (HCC) Start: 10-20-2021 End: 10-20-2021 [facility] Start: 10-17-2021 Telephone encounter Nicole davis MD Work Phone: [facility] Comment on above: Missed Appointment Start: 09-19-2021 End: 09-19-2021 Departed Referred [facility] Start: 11-02-2020 AUDIT Monika Elias rt Work Phone: [facility] Work Phone: Start: 10-27-2020 AUDIT Monika Elias rt Work Phone: [facility] Work Phone: Start: 07-13-2020 Patient encounter procedure Monika Staley [facility] Work Phone: Start: 04-13-2020 Patient encounter procedure Wing Ritter [facility] Work Phone: Start: 04-07-2020 Patient encounter procedure Wing Ritter [facility] Work Phone: Start: 03-18-2020 Patient encounter procedure Wing Ritter [facility] Work Phone: Start: 01-20-2020 Patient encounter procedure Monika Staley MD ND-Pynzpecala-Tzrbb Work Phone: Start: 11-13-2019 End: 11-13-2019 Subsequent hospital visit by physician [facility] Comment on above: Non-pressure chronic ulcer left lower leg, 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] Start: 11-06-2019 Patient encounter procedure Monika Staley MD AK-[id number]-Lhitd Work Phone: Start: 06-18-2019 End: 06-18-2019 Subsequent [...] Ct head/brain w/o co ntrast material Lanette Charli DO Work Phone: Start: 12-23-2021 Follow-up visit [...] Start: 10-26-2021 Electroencephalogram w/rec awake&asleep Sarina Pineda [employer] Work Phone: Start: 10-26-2021 Ct head/brain w/o co ntrast material Sarina Pineda [employer] Work Phone: Start: 10-26-2021 Prothrombin time Andres Sheridan MD Work Phone: Start: 10-25-2021 Speech and language therapy regime Sarina Pineda [employer] Work Phone: Start: 10-25-2021 Prothrombin time Andres [...] Blood count reticulo cyte automated Ellen Scherer [employer] Work Phone: Start: 10-21-2021 C-reactive protein Doloresua juan c Scherer [employer] Work Phone: Start: 10-21-2021 Non-invas physiologi c std extremity art 2 level Shruthi Malik [employer] Work Phone: Start: 10-21-2021 Radex calcaneus mini mum 2 views Shruthi Malik [employer] Work Phone: Start: 10-21-2021 Dup-scan xtr veins c omplete bilateral study May Cash MD Start: 10-21-2021 Chest x-ray 1 view frontal May Cash MD Start: 10-21-2021 Pulmonary ventilatio n & perfusion imaging May Cash MD Start: 10-21-2021 Fibrin dgradj produc ts d-dimer quantitative May Cash MD Start: 10-21-2021 End: 10-21-2021 Basic metabolic panel calcium total Lisa Michelle Work Phone: Start: 08-09-2021 Antibody screen Comment on above: Order Comment: Speci men Type: BLOOD SPECIMENOrdering Facility: [facility] Address: [address] [place] [address] Performed By: #### T SCR ####[facility] BLOOD BANKCLIA [id number] [address] Start: 08-04-2021 Antibody screen Comment on above: Order Comment: Speci men Type: BLOOD SPECIMENOrdering Facility: [facility] Address: [address] [place] [address] Performed By: #### T SCR ####[facility] BLOOD BANKCLIA [id number] [address] Start: 08-01-2021 Antibody screen Comment on above: Order Comment: Speci men Type: BLOOD SPECIMENOrdering Facility: [facility] Address: [address] [place] [address] Performed By: #### T SCR ####[facility] BLOOD BANKCLIA [id number] [address] Start: 06-07-2021 Antibody screen Comment on above: Order Comment: Speci men Type: BLOOD SPECIMEN Performed By: #### T SCR ####[facility] BLOOD BANKCLIA [id number] [address] Start: 09-02-2020 Lipid 1996 panel - S bradly or Plasma Rebecca Buck MD Work Phone: Start: 04-07-2020 Echocardiography Wing [facility]itter Start: 11-13-2019 Radiologic examinati on tibia & fibula 2 views 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 (Public Health Sanitarian Technician) Debbie Work Phone: Hernia repair Monika Elias rt History of Cholecystotomy An n Siri Eliasrt History of Creation Of Subdural-Peritoneal CSF Shunt Shiela Luís History 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 Placement Shiela Luís Urine culture Plan of Treatment Date Care Activity Detail Author Start: 09-22-2026 DTaP/Tdap/Td vaccine (2 - Td or Tdap) DTaP/Tdap/Td vaccine (2 - Td or Tdap) [facility] Start: 09-22-2026 DTaP/Tdap/Td vaccine (2 - Td) DTaP/Tdap/Td vaccine (2 - Td) [facility] Work Phone: Start: 09-22-2026 DTaP/Tdap/Td Vaccine s (2 - Td or Tdap) DTaP/Tdap/Td Vaccines (2 - Td or Tdap) [facility] Start: 09-02-2025 Lipid panel Lipid Panel [facility] Start: 08-22-2024 DIABETES SCREEN DIABETES SCREEN [facility] Start: 12-04-2023 Lipid panel Lipids [facility] Start: 12-04-2023 Lipid screen Lipid screen [facility] Work Phone: Start: 09-13-2023 End: 09-13-2023 Patient encounter procedure 09/13/2023 11:30 AM EDT Office Visit [facility] [address] [facility] [address] [place] [phone] Rebecca Buck MD [address] [facility] [address] [place] [address] [facility] Start: 08-31-2023 End: 08-31-2023 Patient encounter procedure 08/31/2023 9:30 AM EDT Appointment [facility] Imaging [address] [place] [phone] Rebecca Buck MD [address] [address] [facility] CT Imaging Start: 08-13-2023 End: 08-12-2024 Basic metabolic 1998 panel - Serum or Plasma Basic metabolic panel Lab Routine Calculus of ureter Expected: 08/13/2023 (Approximate), Expires: 08/12/2024 [facility] Comment on above: Expected: 08/13/2023 (Approximate), Expires: 08/12/2024 Start: 08-13-2023 End: 08-12-2024 CT Abdomen WO contrast CT abdomen pelvis wo IV contrast Imaging Routine Left flank pain Calculus of ureter Expected: 08/13/2023, Expires: 08/12/2024 [facility] Comment on above: Expected: 08/13/2023 , Expires: 08/12/2024 Start: 08-13-2023 End: 02-12-2024 PSA, Monitoring ([facility]) PSA, Monitoring ([facility]) Lab Routine Disease of prostate Expected: 08/13/2023 (Approximate), Expires: 02/12/2024 [facility] Work Phone: Comment on above: Expected: 08/13/2023 (Approximate), Expires: 02/12/2024 Start: 08-13-2023 End: 08-13-2023 Patient encounter procedure 08/13/2023 10:00 AM EDT Office Visit [facility] [address] [place] [phone] Rebecca Buck MD [address] [place], [place] [id number] [facility] Start: 07-17-2023 Bacteria identified in Urine by Culture [facility] Start: 07-17-2023 [facility] Start: 07-16-2023 Measurement of substance [facility] Start: 05-07-2023 Medicare Advantage A nnual Wellness Visit Medicare Advantage Annual Wellness Visit [facility] Start: 03-02-2023 Creatinine measurement Creatinine Le carmela [facility] Start: 03-02-2023 Potassium measurement Potassium Leve l [facility] Start: 08-22-2022 Diabetes mellitus screening Diabetes Screening [facility] Start: 01-05-2022 Influenza vaccination [facility] Start: 12-23-2021 EPV, Provider: Wing Ritter, Status: Pen, Time: 9:30 AM EPV, Provider: Wing Ritter, Status: Pen, Time: 9:30 AM [facility] Work Phone: Start: 12-05-2021 Influenza vaccination Flu vaccine (# 1) [facility] Start: 12-05-2021 Blood chemistry [facility] Work Phone: Start: 12-05-2021 Complete blood count [facility] Work Phone: Start: 12-05-2021 [facility] Work Phone: Start: 12-01-2021 [facility] Work Phone: Start: 08-05-2021 COVID-19 VACCINE (4 - Booster for Moderna series) COVID-19 VACCINE (4 - Booster for Moderna series) [facility] Start: 08-05-2021 COVID-19 Vaccine (4 - Booster for Pfizer series) COVID-19 Vaccine (4 - Booster for Pfizer series) [facility] Start: 06-01-2021 COVID-19 Vaccine (4 - Booster for Pfizer series) COVID-19 Vaccine (4 - Booster for Pfizer series) [facility] Start: 05-07-2021 ADVANCE DIRECTIVE DISCUSSION ADVANCE DIRECTIVE DISCUSSION [facility] Start: 08-11-2020 Screening for malign ant neoplasm of colon [facility] Start: 07-30-2020 Screening for malign ant neoplasm of colon [facility] Start: 01-20-2020 Echocardiography Echocardiogram MP[facility] [address] [place] Work Phone: Start: 01-06-2020 Influenza vaccination INFLUENZA (#1) [facility] Start: 12-04-2019 Annual Wellness Visi t (AWV) Annual Wellness Visit (AWV) [facility] Start: 12-04-2019 Creatinine monitoring Creatinine mon itoring [facility] Work Phone: Start: 12-04-2019 Hepatitis C screen Hepatitis C scree n [facility] Work Phone: Comment on above: Postponed from 05/06 (Patient Refused) Start: 12-04-2019 Potassium monitoring Potassium monit marvang [facility] Work Phone: Start: 12-04-2019 Prostate specific an tigen measurement Prostate Specific Antigen (PSA) Screening or Monitoring [facility] Start: 12-04-2019 Shingles Vaccine (1 of 2) Day gles Vaccine (1 of 2) [facility] Work Phone: Comment on above: Postponed from 05/06 (Patient Refused) Start: 06-07-2019 Colon Cancer Screen FIT/FOBT [facility] Work Phone: Start: 08-14-2017 LIPID SCREEN LIPID SCREEN [facility] Start: 2017 ADVANCE DIRECTIVE DISCUSSION ADVANCE DIRECTIVE DISCUSSION [facility] Start: 2017 PNEUMOCOCCAL: 65+ (1 - PCV) PNEUMOCOCCAL: 65+ (1 - PCV) [facility] Start: 2017 PNEUMOVAX AGE 65 AND OVER WITH 5YR LOOKBACK (#1) PNEUMOVAX AGE 65 AND OVER WITH 5YR LOOKBACK (#1) [facility] Start: 04-14-2016 DIABETES SCREEN DIABETES SCREEN [facility] Start: 2012 RSV Immunization age d 60 or older (1 - 1-dose 60+ series) RSV Immunization aged 60 or older (1 - 1-dose 60+ series) [facility] Start: 2007 PROSTATE CANCER SCRE ENING DISCUSSION PROSTATE CANCER SCREENING DISCUSSION [facility] Start: 2002 Shingles vaccine (1 of 2) Day gles vaccine (1 of 2) [facility] Start: 2002 SHINGRIX VACCINE (1 of 2) DAY GRIX VACCINE (1 of 2) [facility] Start: 2002 Tuberculosis screening COLOREC MONIQUE CANCER SCREENING,SEE MODIFIER [facility] Start: 2002 Zoster Vaccines (1 of 2) Zoste r Vaccines (1 of 2) [facility] Start: 1997 COLOGUARD (FIT-DNA) COLOGUARD (FIT-D NA) [facility] Start: 1997 Colonoscopy COLONOSCOPY [facility] Start: 1997 COLORECTAL CANCER SCREENING COLORECTAL CANCER SCREENING [facility] Start: [address] COLONOGRAPHY [facility] Start: 1997 FECAL OCCULT BLOOD FECAL OCCULT BLOO D [facility] Start: 1997 Screening for malign ant neoplasm of colon [facility] Start: 1997 SIGMOIDOSCOPY SIGMOIDOSCOPY [facility] Start: 1987 Diabetes screen Diabetes screen [facility] Start: 1971 Urine microalbumin profile DTAP,TDAP,TD (1 - Tdap) [facility] Start: 1970 ANNUAL PCP TEAM ELECTRONICS TESTER KEESHA DISEASE VISIT ANNUAL PCP TEAM CHRONIC DISEASE VISIT [facility] Start: 1970 BP CONTROLLED (<130/80) BP CONTROLLE D (<130/80) [facility] Start: 1970 Diabetes mellitus screening Diabetes Screening [facility] Start: 1970 HEPATITIS C SCREENING HEPATITIS C SC REEMARRY [facility] Start: 1970 Hepatitis C screening [facility] Start: 1964 Adult depression screening assessment DEPRESSION SCREENING [facility] Start: 1964 Depression Screen Depression Screen [facility] Start: 1962 Diabetic foot examination Diabetes: Foot Exam [facility] Start: 1962 Glaucoma screening Diabetes: R etinopathy Screening [facility] Start: 1962 Preventive dental service Diabetes: Dental Exam [facility] [facility] Start: 1950 Echocardiography Echocardiogram [facility] Start: 1950 Hemoglobin A1c measurement Diabetes: Hemoglobin A1C [facility] Start: 1950 Lipid panel Lipid Panel [facility] Start: 1950 Screening for malign ant neoplasm of colon [facility] Bacteria identified in Urine by Culture Urine Culture [facility] Work Phone: End: 03-02-2022 CBC W Auto Differential panel - Blood CBC with Auto Differential Lab Routine One Time for 1 Occurrences starting 03/02/2022 until 03/02/2022 [facility] Work Phone: Comment on above: One Time for 1 Occur rences starting 03/02/2022 until 03/02/2022 End: 03-02-2022 Comprehensive metabolic 2000 panel - Serum or Plasma Comprehensive Metabolic Panel Lab STAT One Time for 1 Occurrences starting 03/02/2022 until 03/02/2022 [facility] Work Phone: Comment on above: One Time for 1 Occur rences starting 03/02/2022 until 03/02/2022 End: 09-06-2023 CT Abdomen WO contrast [facility] [employer] Work Phone: Comment on above: Once for 1 Occurrenc es starting 09/06/2023 until 09/06/2023 End: 12-22-2021 Culture, Blood 2 Culture, Blood 2 Microbiology STAT One Time for 1 Occurrences starting 12/22/2021 until 12/22/2021 [facility] Work Phone: Comment on above: One Time for 1 Occur rences starting 12/22/2021 until 12/22/2021 End: 12-22-2021 Microscopic examination of blood, culture Culture, Blood Microbiology STAT One Time for 1 Occurrences starting 12/22/2021 until 12/22/2021 [facility] Work Phone: Comment on above: One Time for 1 Occur rences starting 12/22/2021 until 12/22/2021 Microscopic examinat ion of blood, culture Culture, Blood Microbiology STAT 12/22/2021 12:22 AM EDT [facility] Work Phone: Oxygen therapy [[facility] Data Set] Initiate Oxygen Therapy Protocol Respiratory Care Routine As Needed until discontinued starting 10/21/2021 [facility] Comment on above: As Needed until disc ontinued starting 10/21/2021 Protime-INR Protime-INR Lab Routine Daily until discontinued starting 10/23/2021, 7 completed [facility] Work Phone: Comment on above: Daily until disconti nued starting 10/23/2021, 7 completed End: 03-02-2022 Protime-INR Protime-INR Lab Routine One Time for 1 Occurrences starting 03/02/2022 until 03/02/2022 [facility] Work Phone: Comment on above: One Time for 1 Occur rences starting 03/02/2022 until 03/02/2022 Spirometry panel Incentive stef metry Respiratory Care Routine Daily until discontinued starting 10/21/2021 [facility] Work Phone: Comment on above: Daily until disconti nued starting 10/21/2021 End: 10-21-2021 Wound ostomy eval Wound ostomy eval Wound Ostomy Routine One Time for 1 Occurrences starting 10/21/2021 until 10/21/2021 [facility] Work Phone: Comment on above: One Time for 1 Occur rences starting 10/21/2021 until 10/21/2021 [facility] NEGATED: Highlighted row has been ruled out! Planned Goals not documented [facility] Work Phone: Immunizations Immunization Date Immunization [...] Phone: Payers Date Payer Category Payer Unknown [id number] 12-17-2023 Self-pay 01-05-2022 Medicaid 01-05-2022 Medicare 01-05-2022 Medicare [id number] 10-05-2021 Medicaid [id number]. [id number] 06-07-2021 Medicare UHC MEDICARE UHC DUAL COMPLETE HMO SNP [id number] 06/07/2021-[facility] [phone] [address] [place] [id number] Medicare [id number] [id number]. 2.7.3.666195.315 06-07-2021 Medicare UHC MEDICARE [employer] DUAL COMPLETE [id number] 06/07/2021-Present [phone] [address] [place] [address] [id number]. 2.7.3.885411.315 11-05-2019 Medicare UHC AARP MEDICAR E [facility] AARP MEDICARE HMO [id number] 11/05/2019-Present HMO [id number] 1.2.840.307767.1.13.159. 2.7.3.467068.315 07-06-2015 Medicare UHC MEDICARE UHC MEDICARE COMPLETE xxxxxxxxx 2015-Present xxxxxxxxx 1.2.840.353663.1.13.239. 2.7.3.309324.315 1950 Unknown [id number] 2.16.840.1.348374.3.579. 2.668 1950 Unknown [id number] 2.16840.1.798824.3.579. 2.668 1952 Unknown [id number] 2.16840.1.754250.3.579. 2.668 1952 Unknown [id number] 2.16.840.1.456065.3.579. 2.668 1952 Unknown [id number] 2.16.840.1.589114.3.579. 2.668 1952 Unknown [id number] 2.16.840.1.127557.3.579. 2.668 1950 Unknown [id number] 2.16.840.1.935311.3.579. 2.668 Private Health Insurance Unknown Unknown [id number] 2.16.840.1.095845.3.579. 2.462 Unknown [id number] 2.16.840.1.718110.3.579. 2.462 Unknown [id number] 2.16.840.1.962678.3.579. 2.462 Unknown [id number] 2.16.840.1.030164.3.579. 2.462 Unknown [id number] 2.16.840.1.146872.3.579. 2.462 Unknown [id number] 2.16.840.1.948986.3.579. 2.462 Unknown [id number] 2.16.840.1.700751.3.579. 2.462 Unknown [id number] 2.16840.1.874786.3.579. 2.462 Unknown [id number] 2.16840.1.201958.3.579. 2.462 Unknown [id number] 2.16840.1.536104.3.579. 2.462 Unknown [id number] 2.16840.1.428136.3.579. 2.462 Unknown [id number] 2.16840.1.990808.3.579. 2.462 Unknown [id number] 2.16840.1.348366.3.579. 2.462 Unknown [id number] 2.16840.1.633582.3.579. 2.462 Unknown [id number] 2.16840.1.511138.3.579. 2.462 Unknown [id number] 2.16840.1.530405.3.579. 2.462 Unknown 80230227 2.16.840.1.387399.3.579. 2.462 Unknown [id number] 2.16.840.1.798879.3.579. 2.462 Unknown [id number] 2.16.840.1.616739.3.579. 2.462 Unknown [id number] 2.16.840.1.828791.3.579. 2.462 Unknown [id number] 2.16.840.1.672203.3.579. 2.462 Unknown [id number] 2.16.840.1.899192.3.579. 2.462 Unknown [id number] 2.16.840.1.415783.3.579. 2.462 Unknown [id number] 2.840.1.872320.3.579. 2.462 Unknown [id number] 2.840.1.693888.3.579. 2.462 Unknown [id number] 2.840.1.142308.3.579. 2.462 Unknown [id number] 2.840.1.393169.3.579. 2.462 Unknown [id number] 2.840.1.213057.3.579. 2.462 Unknown [id number] 2.840.1.953890.3.579. 2.462 Unknown [id number] 2.840.1.291226.3.579. 2.462 Unknown [id number] 2.840.1.044458.3.579. 2.462 Unknown [id number] 2.840.1.064700.3.579. 2.462 Unknown [id number] 2.840.1.541342.3.579. 2.462 Unknown [id number] 2.840.1.405038.3.579. 2.462 Unknown [id number] 2.840.1.340687.3.579. 2.462 Unknown [id number] 2.16.840.1.820557.3.579. 2.462 Unknown [id number] 2.16.840.1.558795.3.579. 2.462 Unknown [id number] 2.16840.1.420375.3.579. 2.462 Unknown [id number] 2.16.840.1.974255.3.579. 2.462 Unknown [id number] 2.16.840.1.589428.3.579. 2.462 Unknown [id number] 2.16.840.1.646361.3.579. 2.462 Unknown [id number] 2.16.840.1.770916.3.579. 2.462 Unknown [id number] 2.16.840.1.758616.3.579. 2.462 Unknown [id number] 2.16.840.1.372597.3.579. 2.462 Unknown [id number] 2.16.840.1.724959.3.579. 2.462 Unknown [id number] 2.16.840.1.945249.3.579. 2.462 Unknown [id number] 2.16.840.1.294825.3.579. 2.462 Unknown [id number] 2.16.840.1.944091.3.579. 2.462 Unknown [id number] 2.16.840.1.512379.3.579. 2.462 Unknown [id number] 2.16.840.1.377355.3.579. 2.462 Unknown [id number] 2.16.840.1.435230.3.579. 2.462 Unknown [id number] 2.16.840.1.518868.3.579. 2.462 Unknown [id number] 2.16.840.1.949425.3.579. 2.462 Unknown [id number] 2.16.840.1.703530.3.579. 2.462 Unknown [id number] 2.16.840.1.227815.3.579. 2.462 Unknown [id number] 2.16.840.1.688321.3.579. 2.462 Unknown [id number] 2.16.840.1.559438.3.579. 2.462 Unknown [id number] 2.840.1.755827.3.579. 2.462 Unknown [id number] 2.840.1.498638.3.579. 2.462 Unknown [id number] 2.840.1.414752.3.579. 2.462 Unknown [id number] 2.840.1.123969.3.579. 2.462 Unknown [id number] 2.840.1.357706.3.579. 2.462 Unknown [id number] 2.840.1.459737.3.579. 2.462 Unknown [id number] 2.840.1.143514.3.579. 2.462 Unknown [id number] 2.840.1.145869.3.579. 2.462 Unknown [id number] 2.840.1.797719.3.579. 2.462 Unknown [id number] 2.840.1.409060.3.579. 2.462 Unknown [id number] .840.1.874072.3.579. 2.462 Unknown [id number] .840.1.377728.3.579. 2.462 Unknown [id number] 2.840.1.078918.3.579. 2.462 Unknown [id number] .840.1.493972.3.579. 2.462 Unknown [id number] .840.1.957722.3.579. 2.462 Unknown [id number] 2.840.1.858200.3.579. 2.462 Unknown [id number] 2.840.1.320055.3.579. 2.462 Unknown 79215692 2.840.1.608976.3.579. 2.462 Unknown 03930591 2.16.840.1.356702.3.579. 2.462 Unknown 25562363 2.16.840.1.853622.3.579. 2.462 Unknown 98531302 2.16.840.1.968129.3.579. 2.462 Unknown 12469884 2.16.840.1.038382.3.579. 2.462 Unknown 55981697 2.16.840.1.104432.3.579. 2.462 Unknown 52805725 2.16.840.1.154236.3.579. 2.462 Unknown 33543341 2.840.1.947393.3.579. 2.462 Unknown 88029679 2.840.1.641956.3.579. 2.462 Unknown 71549842 2.840.1.994899.3.579. 2.462 Unknown 35593355 2.840.1.217954.3.579. 2.462 Unknown 72255602 2.840.1.446692.3.579. 2.462 Unknown 63877416 2.840.1.920124.3.579. 2.462 Unknown 14839754 2.840.1.804884.3.579. 2.462 Unknown 38133027 2.840.1.691352.3.579. 2.462 Unknown 03483885 2.840.1.445475.3.579. 2.462 Unknown 28935725 2.16.840.1.887719.3.579. 2.462 Unknown 18352161 2.16.840.1.233940.3.579. 2.462 Unknown 60399809 2.16.840.1.165450.3.579. 2.462 Unknown 07640727 2.840.1.465393.3.579. 2.462 Unknown 52623207 2.16.840.1.180601.3.579. 2.462 Unknown 32717372 2.16.840.1.136937.3.579. 2.462 Unknown 81889164 2.16.840.1.577865.3.579. 2.462 Unknown 83494499 2.16.840.1.745199.3.579. 2.462 Unknown 46026878 2.16.840.1.770058.3.579. 2.462 Unknown 02861809 2.16840.1.228217.3.579. 2.462 Unknown 39582464 2.16840.1.961830.3.579. 2.462 Unknown 46741582 2.840.1.006750.3.579. 2.462 Unknown 65128202 2.840.1.396723.3.579. 2.462 Unknown 84107911 2.16840.1.177260.3.579. 2.462 Unknown 99389476 2.840.1.453257.3.579. 2.462 Unknown 60958115 2.840.1.577816.3.579. 2.462 Unknown 14505268 2.16840.1.597949.3.579. 2.462 Unknown 95787457 2.16840.1.816949.3.579. 2.462 Unknown 54188226 2.16840.1.397069.3.579. 2.462 Unknown [id number] 2.16840.1.280121.3.579. 2.462 Unknown [id number] 2.16840.1.352018.3.579. 2.462 Unknown [id number] 2.16840.1.171550.3.579. 2.462 Unknown [id number] 2.16840.1.658545.3.579. 2.462 Social History Date Type Detail Facility Start: 05-23-2018 End: 05-19-2019 Tobacco smoking status NHIS [facility] Work Phone: History of tobacco use Cigar Smoker [facility] Work Phone: Start: 05-19-2019 End: 08-13-2023 Cigarettes smoked current (pack per day) - Reported [facility] Work Phone: Start: 05-19-2019 End: 08-13-2023 Alcohol intake Current non-drinker of alcohol (finding) [facility] Work Phone: Start: 12-03-2018 History SDOH Physica l Activity DPW 7 [employer] Work Phone: Start: 12-03-2018 History SDOH Physica l Activity MPS 9 [employer] Work Phone: Start: 12-03-2018 End: 10-31-2021 History SDOH Stress 1 [facility] Work Phone: Start: 12-03-2018 History SDOH Financial 5 [facility] Work Phone: Start: 12-03-2018 History SDOH Transpo rt Med 2 [employer] Work Phone: Start: 1950 Sex Assigned At Not on file [facility] Work Phone: Start: 08-13-2012 End: 11-13-2019 Tobacco smoking status KYIS Never smoker [facility] Start: 05-23-2018 End: 11-13-2019 Tobacco use and exposure Never used [facility] Start: 11-13-2019 History SDOH Alcohol Std Drinks 98 [facility] Start: 10-11-2021 End: 02-15-2022 Exposure to SARS-CoV-2 (event) Not sure [facility] Start: 1950 Sex Assigned At Male W [facility] History of tobacco use Current smoker [facility] Work Phone: History of tobacco use Cigarette Smoker [facility] Work Phone: Start: 10-31-2021 End: 08-13-2023 Tobacco use panel [facility] Tobacco smoking stat us NHIS Unknown if ever smoked [facility] Work Phone: Start: 07-11-2024 End: 08-21-2024 Sex Male (finding) [facility] NEGATED: Highlighted row - - [facility] Work Phone: Medical Equipment Procedure Code Equipment Code Equipment Origin al Text Equipment Identifier Dates Kit Bactiseal Woodard maria guadalupe Silicone Barium Catheter Shunt Sterile - [id number] Start: 06-08-2021 Catheter Bactise al 14cm External Drainage Csf Sterile Latex Free - [id number] Start: 08-05-2021 Valve Certas Shannon nt Inline - [id number] Start: 06-08-2021 Valve Certas Shannon nt Inline - [id number] Start: 08-05-2021 Valve Certas Shannon nt Inline - [id number] Start: 08-09-2021 Goals Date Patient Goal [...] status health issues are not documented Disease [facility] Work Phone: Mental Status Date Assessment Result Facility NEGATED: Highlighted row Cognitive function [Interpretation] Cognitive status health issues are not documented Disease [facility] Work Phone: Clinical Notes [...] and hyperlipidemia 02/15/22-OV Spear-vt, flomax 08/13/23-NEW PT (Cielo)-left flank pain. No fever chill, no heme. [...] Hydrocephalus, adult (CMS/HCC) (HCC) Kidney stone Neuropathy PROVIDER SCRIBE (ventriculoperitoneal) shunt status Past Surgical History: Procedure [...] 09/13/23 12:05 PM documented in this encounter [facility] 08-31-2023 Note S: Shanthi from [facility] spoke with [facility] nurse regarding voiding trial procedure. B: Onset [...] Protocols used: Information Only Call - No [id number] [facility] 08-31-2023 Telephone encounter Note S: Shanthi from [facility] spoke with [facility] nurse regarding voiding trial procedure. B: Onset of symptoms/concern today. A: [facility] is calling to make sure that the patient doesn't need to stand for the procedure as the patient can't. Patient using a boaz lift and would need to come by cot if so. Shanthi advised that the patient would need to come back cot if unable to stand to move from chair to exam table for procedure. R: [facility] will attempt to arrange for transportation for September 03 but might need to reschedule appointment if unable to obtain transportation. Reason for Disposition [1] Caller requesting NON-URGENT health information AND [2] PCP's office is the best resource Protocols used: Information Only Call - No [id number] [facility] 08-31-2023 Miscellaneous Notes S: Shanthi from [facility] spoke with [facility] nurse regarding voiding trial procedure. B: Onset of symptoms/concern today. A: [facility] is calling to make sure that the patient doesn't need to stand for the procedure as the patient can't. Patient using a boaz lift and would need to come by cot if so. Shanthi advised that the patient would need to come back cot if unable to stand to move from chair to exam table for procedure. R: [facility] will attempt to arrange for transportation for September 03 but might need to reschedule appointment if unable to obtain transportation. Reason for Disposition [1] Caller requesting NON-URGENT health information AND [2] PCP's office is the best resource Protocols used: Information Only Call - No [id number] documented in this encounter [facility] 08-29-2023 Telephone encounter Note Lm on daughters vm to advise them to call the number for the communication manager to get clarification, and to call back with further questions [facility] 08-29-2023 Miscellaneous Notes Lm on daughters vm to advise them to call the number for the communication manager to get clarification, and to call back with further questions Yes, they will need to call the number given to them. Please advise Name of caller: Shanthi Contact phone number: [phone] Relationship to Patient: patient Provider: MD Cielo Practice: [facility] Urology Chief Complaint/Reason [...] to reach out to call Maury Cedeño Mortgage Counselor at [facility] [phone] to get clarifications. TEA did reach back out to [facility] and advised and provider Maury's #. Please advise Best time of day caller can be reached: Any Patient advised that office/PCP has 24-48 business hours to return their call: N/A documented in this encounter [facility] 08-27-2023 Telephone encounter Note Yes, they will need to call the number given to them. [facility] 08-27-2023 Telephone encounter Note Please advise [facility] 08-21-2023 Telephone encounter Note Name of caller: Shanthi Contact phone number: [phone] Relationship to Patient: patient Provider: MD Cielo Practice: [facility] Urology Chief Complaint/Reason [...] to reach out to call Maury Cedeño Mortgage Counselor at [facility] [phone] to get clarifications. CAC did reach back out to [facility] and advised and provider Maury's #. Please advise Best time of day caller can be reached: Any Patient advised that office/PCP has 24-48 business hours to return their call: N/A [facility] 08-13-2023 History of Present illness Narrative Images [...] and hyperlipidemia 02/15/22-OV Spear-vt, flomax 08/13/23-NEW PT ([facility])-left flank pain. No fever chill, no heme. [...] Hydrocephalus, adult (CMS/HCC) (HCC) Kidney stone Neuropathy PROVIDER SCRIBE (ventriculoperitoneal) shunt status Past Surgical History: Past [...] 08/13/23 10:45 AM documented in this encounter [facility] 06-25-2023 [facility]10[facility]23 [facility] has to be made further out, pt being transported by cot. Changed appt to 08/13/23 per [facility] only avail time for transport, first avail with DR Buck at 10:00 AM. [facility] 06-25-2023 Miscellaneous Notes [facility] 07/10/23 [facility] has to be made further out, pt being transported by cot. Changed appt to 08/13/23 per [facility] only avail time for transport, first avail with DR Buck at 10:00 AM. documented in this encounter [facility] 12-22-2021 Hospital Discharge instructions SANIA Lou - 12/22/2021 2:32 AM EDT Please take medication as prescribed Please follow up with your Physicians as instructed in this discharge paperwork Thank you for choosing [facility] I appreciate your patience Please return to the emergency department if your symptoms worsen, or new symptoms develop as discussed documented in this encounter [facility] Work Phone: 10-29-2021 Note Hospitalist Discharg [...] abnormality and previous indwelling tubing history of PROVIDER SCRIBE shunt ? #?Bilateral lower extremity wounds-wound care [...] Your Medications These medications were sent to [address] - [phone] - F [phone] [place] [address] ? levETIRAcetam 750 MG tablet ? warfarin 6 MG tablet Recommended Follow-up: No follow-up provider specified. Complexity of Follow up: [] Moderate Complexity: follow up within 7-14 calendar days (10109) [x] Severe Complexity: follow up within 7 calendar days (91719) Follow up Testing, Pending results or Referrals [...] Increased fatigue or (more content not included)... [facility] 10-29-2021 Hospital Discharge instructions Fabi Subramanian RN - 10/29/2021 12:03 PM EDT Continuity of Care Form Patient Name: Andrew Sifuentes : 1950 Admit date: 10/21/2021 Discharge date: 10/29/2021 Code Status Order: Full Code Advance Directives: Admitting Physician: May Cash MD PCP: MONIKA STALEY MD Discharging Nurse: Fabi Discharging Hospital Unit/Room#: 534/1467 Discharging Unit Emergency Contact: Extended Emergency Contact Information Primary Emergency Contact: Triny Damon Address: [address] [place] [address] [address] [place], [place] [address] [place] [address] Relation: Brother/Sister Secondary Emergency Contact: Melissa Sifuentes Mobile Relation: Child Preferred language: American Past Surgical History: Past Surgical History: Procedure Laterality Date BRAIN SURGERY CHOLECYSTECTOMY COLONOSCOPY HERNIA REPAIR Immunization History: Immunization History Administered Date(s) Administered Influenza Virus Vaccine 02/08/2015 Influenza, High Dose (Fluzone 65 yrs and older) 01/25/2018, 03/04/2019 Influenza, Quadv, IM, (6 mo and older Fluzone, Flulaval, Fluarix and 3 yrs and older Afluria) 02/24/2016, 02/14/2017 Pneumococcal Conjugate 13-valent (Qjntrlk03) 09/22/2016 Pneumococcal Conjugate Vaccine 02/04/2013 Pneumococcal Polysaccharide ([id number]) 12/03/2018 Tdap (Boostrix, Adacel) 09/22/2016 Active Problems: Patient Active Problem List Diagnosis Code Flank pain, acute R10.9 Night muscle spasms M62.838 Chronic fatigue R53.82 Hydrocephalus ([facility]) G91.9 Neuropathy G62.9 Erectile dysfunction N52.9 Fluid retention in tissues R60.9 Hyperlipidemia E78.5 Morbidly obese ([facility]) E66.01 Leg wound, left S81.802A DVT, lower extremity, recurrent, unspecified laterality ([facility]) I82.409 Moderate malnutrition ([facility]) E44.0 History of seizures Z87.898 Isolation/Infection: Isolation [...] Dependent Dressing Dependent Toileting Dependent Feeding Dependent Acid Maker Dependent Med Delivery whole in [facility] Wound Care Documentation and Therapy: Wound [...] Q4H prn SOB Oxygen Therapy: {Therapy; copd oxygen:89449} Ventilator: { CC Vent List:[id number]} Rehab Therapies: {THERAPEUTIC INTERVENTION:1547903906} Weight Bearing Status/Restrictions: Weight Bearing - Patient was bedbound in hospital Other Medical Equipment (for information only, NOT a DME order): wheelchair, hospital bed, and Boaz Other Treatments: Patient's personal belongings (please select all that are sent with patient): {[facility] DME Belongings:[id number]} RN SIGNATURE: CASE MANAGEMENT/SOCIAL WORK SECTION Inpatient Status Date: Readmission Risk Assessment Score: Readmission Risk Risk of Unplanned Readmission: 11 Discharging to Facility/ Agency Name: Address: Phone: Fax: Dialysis Facility (if applicable) Name: Address: Dialysis Schedule: Phone: Fax: Tie Fastener/Synchro Assembler signature: {Esignature:673992375} PHYSICIAN SECTION Prognosis: Fair Condition at Discharge: Stable Rehab Potential (if transferring to Rehab): Fair Recommended Labs or Other Treatments After Discharge: Coumadin based on INR target range 2-3, Coumadin 6 mg on 10/30 and 10/31, recheck INR 28 and notify physician, ideally should be on 6 mg alt with 7 mg daily, PT/OT, follow-up with neurologist in 1 month, continue [facility] Physician Certification: I certify the above information and transfer of Andrew Sifuentes is necessary for the continuing treatment of the diagnosis listed and that he requires [facility] Facility for greater than 30 days. Update Admission H&P: No change in H&P PHYSICIAN SIGNATURE: documented in this encounter [facility] Work Phone: 10-29-2021 History of Present illness Narrative [facility] Anticoagulation Management Service ([facility]) Inpatient Warfarin Consult HPI: Andrew Sifuentes is a 71 y.o. 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 Past Medical History: Diagnosis Date ED (erectile dysfunction) Hemorrhoids Hydrocephalus, adult (HCC) Kidney stone Neuropathy PROVIDER SCRIBE (ventriculoperitoneal) shunt status Patient is newly referred to the [facility] clinic for warfarin management. Pt was [...] drug interactions and adjust dose accordingly. 3. [facility] will manage while inpatient and sign off at discharge. Patient resides in a SNF. If discharged, recommend continuing close to 6-7mg warfarin daily. 4. Will provide warfarin education including [facility] warfarin booklet, if appropriate. Vimal Oropeza RPH, PharmD [facility] Consult Service is available daily [phone]. Please search for covering pharmacist name via [employer] or Groups --> Pharmacy --> Anti-Coagulation Consult Pharmacist (on 3rd page). If no response via [email or web address], please page [phone]. Patient seen and chart reviewed. Afebrile. Adequate oxygenation on room air. Baseline mentation. Exam stable X 5 systems. Hgb 11.0 WBC 10.0 K Platelets 344 K Creatinine 0.71 GFR > 90 cc/min. NSE 20.8 with hemolysis. PT 30.8 INR 3.1 Conversion to Warfarin has been completed. APS w/u pending. Discussed with patient's staff research scientist. Will continue to monitor. Total visit time > 35 minutes. Neurology Attending Progress Note SUBJECTIVE: No issues overnight. Care discussed with nursing staff/patient's medical team MRI brain reported nothing acute. Assessment and Plan: 71 yr M with PMH obstructive hydrocephalus s/p PROVIDER SCRIBE shunt in 1987, needing multiple revisions and [...] normal limits and both old and new PROVIDER SCRIBE shunt tubing noted. At present patient is awake, follows commands, was able to tell his name, and that he was in hospital but not oriented to time. Per documentation patient had NCSE in May 2021, was on Vimpat, but it was discontinued as there was no evidence of recurrent seizures in july 2021 by Neurology at [facility], per daughter patient was on Dilantin for 31 yrs. Per daughter patient had seizures in the past and also felt he had staring episodes 10/26/2021 morning. Per daughter patient has been essentially bed bound in [place] since May 2021 but prior to that was independent Impressions: H/O hydrocephalus H/O seizure, H/O stroke Acute DVT H/O PE Plan: -MRI brain w/o contrast nothing acute -CT head done during this admission reported no hydrocephalus, ventricles within normal limits and both old and new PROVIDER SCRIBE shunt tubing noted -EEG mild to moderate slow, no seizures reported -Labs reviewed -Hydrocephalus management per Neurosurgery. At present patient does not have hydrocephalus on CT head done this admission. No Neurosurgery services available as inpatient in [facility]. Patient can follow up with Neurosurgery as outpatient and if ends up needing inpatient neurosurgery requirement then may need to be transferred to [facility]. -No clear clinical signs of ventriculitis. Defer evaluation to primary medical team/ID as deemed necessary. -Discussed with daughter in detail on . She was concerned that patient has had h/o seizures, and he has been taken off seizure medication, per note documentation patient had NCSE in May 2021 when he was admitted to [facility]. Per daughter she would want patient to [...] is no in house Neurology coverage at [facility] over the weekend, primary hospitalist team to contact utility person Neurology at [facility] for any weekend neurological issues related to the patient and if need to discuss any neurological test results/findings. Other deal in house Neurology coverage will be available from Sunday at [facility] and please call utility person Neurology back on Sunday if need further assistance. This note has been generated using Gondola dictation software. It may contain incorrect words, punctuation's and spellings that were not noted in the review of the note prior to signing. This note has been generated using Gondola dictation software. It may contain incorrect words, [...] eGFR >90.0 >60 mL/min EGFR IF NonAfrican Citizen Of [place] >90.0 >60 mL/min Calcium 9.1 8.4 - [...] 26 AST 24 BILITOT 0.4 LABALBU 3.7 @BRIEFLAB([facility]) ABGs: )No results for input(s): PH, [...] Coagulation: Recent Labs 10/26/21 0319 10/27/21 0537 10/28/218 INR 1.9* 2.1* 3.1* CSF: No results [...] Radiology ACCESSION EXAM DATE/TIME PROCEDURE ORDERING PROVIDER [id number] 10/21/2021 15:30 EDT CR Calcaneus 2+ Views [id number] -SHRUTHI MALIK Left CPT code 78165 Reason For Exam (CR Calcaneus 2+ Views [...] Tomography ACCESSION EXAM DATE/TIME PROCEDURE ORDERING PROVIDER [id number] 10/26/2021 11:[address] Head or Brain w/o JUNIE PINEDA, SARINA Contrast CPT code 73958 Reason For Exam (CT Head or Brain w/o Contrast) hydrocephalus. thank you Report CLINICAL INFORMATION: Hydrocephalus. Shunt. 3 mm axial cuts through the head are obtained without IV contrast. The examination is compared to a previous study dated 06/29/2014. FINDINGS: Old PROVIDER SCRIBE shunt tubing is noted bilaterally. The new [...] are clear. IMPRESSION: 1. Old and new PROVIDER SCRIBE shunt tubing. 2. No hydrocephalus. 3. Atrophy [...] Imaging ACCESSION EXAM DATE/TIME PROCEDURE ORDERING PROVIDER [id number] 10/23/2021 11:08 EDT MRI Abdomen w/o Contrast WING SRIVASTAVA CPT code 47853 Reason For Exam (MRI Abdomen w/o Contrast) [...] Medicine ACCESSION EXAM DATE/TIME PROCEDURE ORDERING PROVIDER [id number] 10/21/2021 07:55 EDT NM Pulmonary Perfusion [id number] LilliSHAILESH MAY w/ Vent Aerosol CPT code 19496 A9567 Reason For Exam (NM Pulmonary Perfusion [...] PE. Critical test result. Discussed with Dr. Crater. Report Dictated on --- Final --- Dictating Physician: MD HARVEY JOHN Signed Date and Time: 10/21/2021 8:48 am Signed by: MD HARVEY JOHN Transcribed Date and Time: 10/21/2021 8:49 VL Ankle Art Brachial Indices Extremity Bilateral Result Date: 10/22/2021 [facility] --- Ankle Brachial Index Report Patient Gurpreet : 1950 Study 10/21/2021 Name: Andrew Gonzalez (71yrs) Date: Age: 71 Account: [id number] Gender: M Loc: 444W BP: Ordering Physician: Shruthi Malik Workers Compensation Claims Supervisor: Rody Cross RDMS, RVT Interpreting Physician: Carina Call --- Location: [facility] --- Indications: Foot wounds. Originally ordered as a full PVR. Ordering RECORDS SECTION SUPERVISOR had to modify the order to ABIs [...] supine position. Images were obtained using a [employer] vascular ultrasound machine. --- Arterial pressure indices: [...] EXTREMITY BILATERAL VENOUS DUPLEX Result Date: 10/21/2021 [facility] --- Lower Extremity Venous Duplex Report Patient DO GurpreetB: 1950 Study 10/21/2021 Name: Andrew Gonzalez (71yr) Date: Age: 71 Account: [id number] Gender: M Loc: 444 BP: Ordering Physician: May Cash Workers Compensation Claims Supervisor: Rody Cross RDMS, RVT Interpreting Physician: Carina [...] supine position. Images were obtained using a [employer] vascular ultrasound machine. --- Venous flow and [...] Radiology ACCESSION EXAM DATE/TIME PROCEDURE ORDERING PROVIDER [id number] 10/21/2021 08:16 EDT CR Chest 1 View Frontal [id number] FOSTER CPT code 73874 Reason For Exam (CR Chest 1 View [...] Result Date: 10/22/2021 [id number] Computed Tomography ACCESSION EXAM DATE/TIME PROCEDURE ORDERING PROVIDER [id number] 10/22/2021 13:[address] Abdomen/Pelvis (No SRIVASTAVA, WING PO, No IV) CPT code 41598 Reason For Exam (CT Abdomen/Pelvis (No PO, [...] Result Date: 10/27/2021 [id number] Magnetic Resonance Imaging ACCESSION EXAM DATE/TIME PROCEDURE ORDERING PROVIDER [id number] 10/27/2021 13:14 EDT MRI Brain w/o Contrast UNASSIGNED, UNASSIGNED CPT code 55329 Reason For Exam (MRI Brain w/o Contrast) stroke Patient has PROVIDER SCRIBE shunt in place, please follow Radiology protocol [...] All questions and concerns were addressed. Katherine Barerto MD Neurology, Vascular Neurology 10/28/2021 12:44 PM Consults Images from the original note were not included. Hospitalist Progress Note 10/28/2021 11:37 AM [phone]: Please page me @ [phone] for patient care issues. [phone]: Please page terrazzo worker apprentice for any issues@ night Subjective: Admit Date: [...] abnormality and previous indwelling tubing history of PROVIDER SCRIBE shunt # Bilateral lower extremity wounds-wound care [...] Services This report was created using the Proformative Speaking voice-activated system. Despite prompt dictation and careful editorial review, there may be subtle contextual errors in this report, due to misrecognition of the spoken word. Speech Language Pathology Facility/Department: [facility] MED SURG Dysphagia Treatment Note NAME: Andrew [...] and gloves were worn throughout this session. [facility] Anticoagulation Management [facility] ([facility]) Inpatient Warfarin Consult HPI: Andrew Sifuentes is a 71 y.o. 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 Past Medical History: Diagnosis Date ED (erectile dysfunction) Hemorrhoids Hydrocephalus, adult (HCC) Kidney stone Neuropathy PROVIDER SCRIBE (ventriculoperitoneal) shunt status Patient is newly referred to the [facility] clinic for warfarin management. Pt was [...] appropriate. Brionna Le, PharmD candidate [facility], PharmD IRVIN Consult Service is available daily [phone]. Please search for covering pharmacist name via [employer] or Groups --> Pharmacy --> Anti-Coagulation Consult Pharmacist (on 3rd page). If no response via [employer], please page [phone]. Follow up b/l foot wounds. No new [...] yr M with PMH obstructive hydrocephalus s/p PROVIDER SCRIBE shunt in 1987, needing multiple revisions and [...] normal limits and both old and new PROVIDER SCRIBE shunt tubing noted. At present patient is awake, follows commands, was able to tell his name, and that he was in hospital but not oriented to time. Per documentation patient had NCSE in May 2021, was on Vimpat, but it was discontinued as there was no evidence of recurrent seizures in july 2021 by Neurology at [facility], per daughter patient was on Dilantin for 31 yrs. Per daughter patient had seizures in the past and also felt he had staring episodes 10/26/2021 morning. Per daughter patient has been essentially bed bound in [place] since May 2021 but prior to that was independent Impressions: H/O hydrocephalus H/O seizure, H/O stroke Acute DVT H/O PE Plan: -MRI brain w/o contrast. Per daughter she would like MRI brain done to evaluate for strokes -CT head done during this admission today reported no hydrocephalus, ventricles within normal limits and both old and new PROVIDER SCRIBE shunt tubing noted -EEG mild to moderate slow, no seizures reported -Labs reviewed -Hydrocephalus management per Neurosurgery. At present patient does not have hydrocephalus on CT head done this admission. No Neurosurgery services available as inpatient in [facility]. Patient can follow up with Neurosurgery as outpatient and if ends up needing inpatient neurosurgery requirement then may need to be transferred to [facility]. -No clear clinical signs of ventriculitis. Defer evaluation to primary medical team/ID as deemed necessary. -Discussed with daughter in detail on . She was concerned that patient has had h/o seizures, and he has been taken off seizure medication, per note documentation patient had NCSE in May 2021 when he was admitted to [facility]. Per daughter she would want patient to [...] interim. This note has been generated using eX[employer] Technologiesation software. It may contain incorrect words, punctuation's and spellings that were not noted in the review of the note prior to signing. This note has been generated using Gondola dictation software. It may contain incorrect words, [...] LABALBU, AMYLASE, LIPASE in the last 72 hours.@BRIEFLAB([facility]) ABGs: )No results for input(s): PH, [...] Result Date: 10/21/2021 [id number] Diagnostic Radiology ACCESSION EXAM DATE/TIME PROCEDURE ORDERING PROVIDER [id number] 10/21/2021 15:30 EDT CR Calcaneus 2+ Views [id number] -SHRUTHI MALIK Left CPT code 39627 Reason For Exam (CR Calcaneus 2+ Views [...] Tomography ACCESSION EXAM DATE/TIME PROCEDURE ORDERING PROVIDER [id number] 10/26/2021 11:[address] Head or Brain w/o JUNIE PINEDA, SARINA Contrast CPT code 94869 Reason For Exam (CT Head or Brain w/o Contrast) hydrocephalus. thank you Report CLINICAL INFORMATION: Hydrocephalus. Shunt. 3 mm axial cuts through the head are obtained without IV contrast. The examination is compared to a previous study dated 06/29/2014. FINDINGS: Old PROVIDER SCRIBE shunt tubing is noted bilaterally. The new [...] are clear. IMPRESSION: 1. Old and new PROVIDER SCRIBE shunt tubing. 2. No hydrocephalus. 3. Atrophy [...] Imaging ACCESSION EXAM DATE/TIME PROCEDURE ORDERING PROVIDER [id number] 10/23/2021 11:08 EDT MRI Abdomen w/o Contrast WING SRIVASTAVA CPT code 83336 Reason For Exam (MRI Abdomen w/o Contrast) [...] Medicine ACCESSION EXAM DATE/TIME PROCEDURE ORDERING PROVIDER [id number] 10/21/2021 07:55 EDT NM Pulmonary Perfusion [id number] MYA BOGGS w/ Vent Aerosol CPT code 14414 A9567 Reason For Exam (NM Pulmonary Perfusion [...] Brachial Indices Extremity Bilateral Result Date: 10/22/2021 [facility] --- Ankle Brachial Index Report Patient DO GurpreetB: 1950 Study 10/21/2021 Name: Andrew Gonzalez (71yrs) Date: Age: 71 Account: [id number] Gender: M Loc: 444W BP: Ordering Physician: Shruthi Malik Workers Compensation Claims Supervisor: Rody Cross RDMS, RVT Interpreting Physician: Carina Call --- Location: [facility] --- Indications: Foot wounds. Originally ordered as a full PVR. Ordering RECORDS SECTION SUPERVISOR had to modify the order to ABIs [...] supine position. Images were obtained using a [employer] vascular ultrasound machine. --- Arterial pressure indices: [...] EXTREMITY BILATERAL VENOUS DUPLEX Result Date: 10/21/2021 [facility] --- Lower Extremity Venous Duplex Report Patient DO GurpreetB: 1950 Study 10/21/2021 Name: Andrew Gonzalez (71yrs) Date: Age: 71 Account: [id number] Gender: M Loc: 444 BP: Ordering Physician: May Cash Workers Compensation Claims Supervisor: Rody Cross RDMS RVT Interpreting Physician: Carina Call --- Location: [...] supine position. Images were obtained using a [employer] vascular ultrasound machine. --- Venous flow and [...] Radiology ACCESSION EXAM DATE/TIME PROCEDURE ORDERING PROVIDER [id number] 10/21/2021 08:16 EDT CR Chest 1 View Frontal [id number] MAY BOGGS CPT code 16977 Reason For Exam (CR Chest 1 View [...] Tomography ACCESSION EXAM DATE/TIME PROCEDURE ORDERING PROVIDER [id number] 10/22/2021 13:[address] Abdomen/Pelvis (No SRIVASTAVAWING KESSLER PO, No IV) CPT code 04235 Reason For Exam (CT Abdomen/Pelvis (No PO, [...] PM Consults Speech Language Pathology Facility/Department: [facility] MED SURG Dysphagia Treatment Note NAME: Andrew [...] reactivity and state change, indicative of a [id number]-[id number] diffuse encephalopathy of nonspecific etiology. There are [...] Easy to chew diet/cut up. NEVILLE Jones M.A.CCC/HEALTH CARE MARKETING SPECIALIST Time session ended: 1156 Total session minutes: 23 Images from the original note were not included. Hospitalist Progress Note 10/27/2021 10:40 AM [phone]: Please page me @ [phone] for patient care issues. [phone]: Please page terrazzo worker apprentice for any issues@ night Subjective: Admit Date: [...] Services This report was created using the Proformative Speaking voice-activated system. Despite prompt dictation and careful editorial review, there may be subtle contextual errors in this report, due to misrecognition of the spoken word. [facility] Anticoagulation Management [facility] ([facility]) Inpatient Warfarin Consult HPI: Andrew Sifuentes is a 71 y.o. 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 Past Medical History: Diagnosis Date ED (erectile dysfunction) Hemorrhoids Hydrocephalus, adult (HCC) Kidney stone Neuropathy PROVIDER SCRIBE (ventriculoperitoneal) shunt status Patient is newly referred to the [facility] clinic for warfarin management. Pt was [...] PharmD IRVIN Consult Service is available daily [phone]. Please search for covering pharmacist name via [employer] or Groups --> Pharmacy --> Anti-Coagulation Consult Pharmacist (on 3rd page). If no response via [employer], please page [phone]. I cleaned under patient's finger nails with [...] status with Warfarin. Discussed with patient's staff research scientist. Will continue to monitor. Total visit time [...] if concern Hydrocephalus Chronic WOODARD's - Revised PROVIDER SCRIBE shunt - daughter requested that pt have CT / MRI of brain and neurology be consulted, this was done. - "Hydrocephalus management per Neurosurgery. At present patient does not have hydrocephalus on CT head done this morning. No Neurosurgery services available as inpatient in [facility]. Patient can follow up with Neurosurgery as outpatient and if ends up needing inpatient neurosurgery requirement then may need to be transferred to [facility]. " Seizure history, unspecified - daughter [...] get report from nursing. Continue wound care. [facility] ([facility]) Inpatient Warfarin Consult HPI: Andrew Sifuentes is a 71 y.o. 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 Past Medical History: Diagnosis Date ED (erectile dysfunction) Hemorrhoids Hydrocephalus, adult (HCC) Kidney stone Neuropathy PROVIDER SCRIBE (ventriculoperitoneal) shunt status Patient is newly referred to the [facility] clinic for warfarin management. Pt was [...] SNF. 4. Will provide warfarin education including [facility] warfarin booklet, if appropriate. Thank you for this consult Brionna Le, PharmD candidate [facility] R[facility], PharmD [facility] Consult Service is available daily [phone]. Please search for covering pharmacist name via [employer] or Groups --> Pharmacy --> Anti-Coagulation Consult Pharmacist (on 3rd page). If no response via [email or web address], please page [phone]. Moon daughter stated that any of patient's family can call and obtain an update on patient's status. Speech Language Pathology Facility/Department: [facility] MED SURG CLINICAL BEDSIDE SWALLOW EVALUATION NAME: [...] a small bore straw. Additionally discussed with HEALTH CARE MARKETING SPECIALIST, agreeable to assess tomorrow. Recent Chest Xray/CT [...] and liquids between bites. Treatment Plan Requires HEALTH CARE MARKETING SPECIALIST Intervention: Yes Duration of Treatment: 2 weeks [...] and recommendations: Patient;RN;Family member Family member consulted: Moon daughter Education Patient Education: Swallowing strategies. Patient Education Response: Verbalizes understanding;Needs reinforcement Therapy Time HEALTH CARE MARKETING SPECIALIST Individual Minutes Time In: 826 Time Out: 852 Minutes: 26 NEVILLE Jones 10/26/2021 9:20 AM Comprehensive Nutrition Assessment Type and Reason for Visit: Initial (DT referral for wounds) Nutrition Recommendations/Plan: 1. Recommend to continue: Easy to Chew diet with Thin Liquids as currently ordered and safe for patient to participate in. Discussed with: RN, RECORDS SECTION SUPERVISOR, and HEALTH CARE MARKETING SPECIALIST. HEALTH CARE MARKETING SPECIALIST to assess tomorrow, best diet and liquid [...] & deltoids),Scapula (trapezius) Fluid Accumulation: Mild Extremities Glass Melt Operator Strength: Not Performed Nutrition Assessment: 71 [...] a small bore straw. Additionally discussed with HEALTH CARE MARKETING SPECIALIST, agreeable to assess tomorrow. Nutrition Related Findings: [...] Anthropometric Measures: Height: 5' 7.01" (170.2 cm) Bradner Body Weight (IBW): 148 lbs (67 kg) Admission Body Weight: 240 lb (108.9 kg) (stated 10/21/21) Current Body Weight: 205 lb 4 oz (93.1 kg) (10/25/21), 138.7 % IBW. Weight Source: Bed Scale Current BMI (kg/m2): 32.1 Usual Body Weight: 272 lb 11.3 oz (123.7 kg) (05/30/21 and 232.5# noted 08/14/21 at [facility] per EMR Review) % Weight Change (Calculated): -24.7 BMI Categories: Obese Class 1 (BMI 30.0-34.9) Estimated Daily Nutrient Needs: Energy Requirements Based On: Kcal/kg Weight Used for Energy Requirements: Bradner (67.15 kg) Energy (kcal/day): 1775-8511 (27-32 kcal/kg IBW) --> increased need d/t wounds Weight Used for Protein Requirements: Bradner (67.15 kg) Protein (g/day): 67-101 (1.0-1.5 g protein/kg IBW) Method Used for Fluid Requirements: Other (Comment) Fluid (ml/day): 9493-2670 mL daily or per MD Nutrition Diagnosis: [...] Plan of Care discussed with: Patient, RN, RECORDS SECTION SUPERVISOR Edwin Goals: Goals: other (specify) Specify Other [...] to determine Puja Almanza RD, LD Contact: *[phone] [employer] Hematology/Oncology Attending Progress Note SUBJECTIVE: Patient seen [...] IRON, TIBC, FERRITIN No results found for: [id number] No results found for: FOLATE PT 15.6 INR 1.5 CA 19 - 9 is 17 Protein S 138% Protein C 186% ASSESSMENT AND PLAN GI input appreciated. Patient continues with subtherapeutic INR. GI input appreciated. Discussed with patient's staff research scientist. Will continue monitor. Total visit time > 35 minutes. [facility] Anticoagulation Management [facility] ([facility]) Inpatient Warfarin Consult HPI: Andrew Sifuentes is a 71 y.o. 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 Past Medical History: Diagnosis Date ED (erectile dysfunction) Hemorrhoids Hydrocephalus, adult (HCC) Kidney stone Neuropathy PROVIDER SCRIBE (ventriculoperitoneal) shunt status Patient is newly referred to the [facility] clinic for warfarin management. Pt was [...] PharmD IRVIN Consult Service is available daily [phone]. Please search for covering pharmacist name via [employer] or Groups --> Pharmacy --> Anti-Coagulation Consult Pharmacist (on 3rd page). If no response via [employer], please page [phone]. Progress Note 10/25/2021 9:36 AM Name: Andrew [...] if concern Hydrocephalus Chronic WOODARD's - Revised PROVIDER SCRIBE shunt DC planning - 10/25/21: INR subtherapeutic, [...] if concern Hydrocephalus Chronic WOODARD's - Revised PROVIDER SCRIBE shunt DC planning - Can be DC'd back to ECF once MRI done if no acute findings, MRI is done, defer to hem / onc on plan for that, awaiting chest PA with fluoro Patient seen and chart reviewed. Consult dictated. Will ask GI to assess concerning the etiology of liver lesions. Will continue to monitor. [facility] Anticoagulation Management [facility] ([facility]) Inpatient Warfarin Consult HPI: Andrew Sifuentes is a 71 y.o. 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 Past Medical History: Diagnosis Date ED (erectile dysfunction) Hemorrhoids Hydrocephalus, adult (HCC) Kidney stone Neuropathy PROVIDER SCRIBE (ventriculoperitoneal) shunt status Patient is newly referred to the [facility] clinic for warfarin management. Pt was [...] PharmD IRVIN Consult Service is available daily [phone]. Please search for covering pharmacist name via [employer] or Groups --> Pharmacy --> Anti-Coagulation Consult Pharmacist (on 3rd page). If no response via [employer], please page [phone]. Follow up foot wounds Patient is more alert this morning. Waffle boots are on Ulcer left heel ulcer right foot Foot drop PE, chart reviewed. Patient relates that he does not walk at home. c ontinue wound care. Images from the original note were not included. Hospitalist Progress Note 10/23/2021 1:47 PM [phone]: Please page me ([phone]) or perfect serve me for patient care issues. [phone]: Please page [facility] night Hospitalist for any issues. Subjective: Admit Date: 10/21/2021 PCP: MONIKA STALEY MD Room#: 163/146 Admitting Synopsis: 71 y/o male presents from [...] if concern Hydrocephalus Chronic WOODARD's - Revised PROVIDER SCRIBE shunt DC planning - Can be DC'd [...] Hemorrhoids Hydrocephalus, adult (HCC) Kidney stone Neuropathy PROVIDER SCRIBE (ventriculoperitoneal) shunt status Medications: sodium chloride warfarin [...] 72 hours. PT/INR: Recent Labs 10/21/2120910/22/21 0744 10/23/218 PROTIME 11.5 11.8 12.2* INR 1.1 1.1 [...] of Hospitalist Medicine Inpatient Medical Services PAGER: [phone] Nutrition rescreen completed. Pt referred to RD for foot ulcers. Occupational Therapy Facility/Department: [facility] MED SURG Occupational Therapy Initial Assessment Name: Andrew Sifuentes : 1950 Date of Service: 10/23/2021 OT eval and treat orders received. Chart reviewed. Per notes pt from F, is Boaz lift at baseline, non-ambulatory, and requires assist for all ADLs. Will d/c OT orders. Elizabeth Gutierrez OT Physical Therapy Facility/Department: [facility] MED SURG Physical Therapy Initial Assessment Name: Andrew Sifuentes : 1950 Date of Service: 10/23/2021 PT eval and treat orders received. Chart reviewed. Per notes pt from F, is Boaz lift at baseline, non-ambulatory. Will d/c PT orders. Lloyd Silva PT [facility] Anticoagulation Management Service (IRVIN) Inpatient Warfarin Consult HPI: Andrew Sifuentes is a 71 y.o. 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 Past Medical History: Diagnosis Date ED (erectile dysfunction) Hemorrhoids Hydrocephalus, adult (HCC) Kidney stone Neuropathy PROVIDER SCRIBE (ventriculoperitoneal) shunt status Patient is newly referred to the [facility] clinic for warfarin management. Pt was [...] drug interactions and adjust dose accordingly. 3. [facility] will manage while inpatient and sign off at discharge. Patient resides in a SNF. 4. Will provide warfarin education including [facility] warfarin booklet, if appropriate. Thank you for this consult Lisa Forrest RPH, PharmD [facility] Consult Service is available daily [phone]. Please search for covering pharmacist name via [employer] or Groups --> Pharmacy --> Anti-Coagulation Consult Pharmacist (on 3rd page). If no response via [employer], please page [phone]. Department of Podiatry Attending Consult Note Reason for Consult: Wound care Requesting Physician: MD Shailesh CHIEF COMPLAINT: Foot wounds HISTORY OF PRESENT ILLNESS: The patient is a 71 y.o. male with b/l foot wounds. Patient is awake , but not answering questions. Past Medical History: Diagnosis Date ED (erectile dysfunction) Hemorrhoids Hydrocephalus, adult (HCC) Kidney stone Neuropathy PROVIDER SCRIBE (ventriculoperitoneal) shunt status Past Surgical History: Procedure [...] OT consulted. Will follow . Thank you. [facility] Respiratory Care Department Progress Note As [...] included. Hospitalist Progress Note 10/22/2021 6:33 AM [phone]: Please page me ([phone]) or perfect serve me for patient care issues. [phone]: Please page [facility] night Hospitalist for any issues. [...] consider MRI if concern Hydrocephalus - Revised PROVIDER SCRIBE shunt Interval History: No overnight issues. Denies [...] no cyanosis or edema and unable to wallpaper remover steam BLE, this is old Musculoskeletal: Muscle loss [...] Hemorrhoids Hydrocephalus, adult (HCC) Kidney stone Neuropathy PROVIDER SCRIBE (ventriculoperitoneal) shunt status Medications: sodium chloride baclofen [...] of Hospitalist Medicine Inpatient Medical Services PAGER: [phone] Images from the original note were not included. Hospitalist Progress Note 10/21/2021 5:31 PM [phone]: Please page me ([phone]) or perfect serve me for patient care issues. [phone]: Please page [facility] night Hospitalist for any [...] Will need chronic OAC Hydrocephalus - Revised PROVIDER SCRIBE shunt Interval History: No overnight issues. Denies [...] Hemorrhoids Hydrocephalus, adult (HCC) Kidney stone Neuropathy PROVIDER SCRIBE (ventriculoperitoneal) shunt status Medications: sodium chloride baclofen 10 mg Oral TID bumetanide 2 mg Oral Daily potassium chloride 20 mEq Oral Daily sodium chloride flush 5-40 mL IntraVENous 2 times per day enoxaparin 1 mg/kg SubCUTAneous BID ipratropium-albuterol 1 ampule Inhalation Q4H [place] LABS: CBC: Recent Labs 10/21/21209 WBC 11.6* [...] of Hospitalist Medicine Inpatient Medical Services PAGER: [phone] Family member Triny, sister to patient, called back to the hospital stating that she was returning a call from a provider. Her phone number is [phone] to speak with whomever was attempting to reach out to her. documented in this encounter [place] Phone: 10-17-2021 Miscellaneous Notes Mr. Sifuentes missed his hospital stay follow-up appointment w. Dr. Lim today. Called to Reschedule. Could not get through. "Subscriber you have dialed not in service" - was the automated voice mail. Unable to leave . No other phone# available. Ramya Negro [facility] documented in this encounter [facility] 08-19-2021 Note [facility] 08-19-2021 [facility] 08-18-2021 Note [facility] 08-18-2021 Note [facility] 08-17-2021 Note [facility] 08-17-2021 Note [facility] 08-16-2021 Note [facility] 08-16-2021 Note HNO ID: [id number] Author: Katt Kelsey DO Service: Hospital Medicine Author Type: Physician Type: Plan of Care Filed: 08/16/2021 12:26 PM Note Text: Spoke with RN that line is a PICC. Katt Kelsey DO 08/16/2021 12:26 PM [facility] 08-16-2021 Note [facility] 08-16-2021 Note [facility] 08-15-2021 Note [facility] 08-15-2021 Note [facility] 08[facility]15-2021 Note [facility] 08-14-2021 Note [facility] 08[facility]14-2021 Note [facility] 08-13-2021 Note [facility] 08-13-2021 Note [facility] 08-13-2021 Note [facility] 08-13-2021 Note HNO ID: [id number] Author: Interface Note Service: ? Author Type: ? Type: Progress Notes Filed: 08/13/2021 3:10 AM Note Text: Epic Scheduled Downtime: 08/13/2021 1:08:47 AM to 08/13/2021 2:53:47 AM [facility] 08-12-2021 Note [facility] 08-12-2021 [facility] 08-12-2021 Note [facility] 08-11-2021 Note [facility] 08-11-2021 Note [facility] 08-11-2021 Note [facility] 08[facility]11-2021 Note [facility] 08[facility]11-2021 Note [facility] 08-11-2021 Note [facility] 08-10-2021 Note [facility] 08-10-2021 Note [facility] 08-10-2021 Note [facility] 08-10-2021 Note [facility] 08-09-2021 Note HNO ID: [id number] Author: Shannon Click, RN Service: ? Author Type: Registered Nurse Type: Nursing Progress Note Filed: 08/09/2021 7:33 PM Note Text: [facility] 08-09-2021 [facility] 08-09-2021 [facility] 08-09-2021 Note [facility] 08-08-2021 Note [facility] 08-08-2021 Note [facility] 08-08-2021 Note [facility] 08-07-2021 Note [facility] 08[facility]07-2021 Note [facility] 08[facility]07-2021 Note [facility] 08-07-2021 Note [facility] 08-07-2021 Note [facility] 08-06-2021 Note [facility] 08-06-2021 Note [facility] 08-06-2021 Note [facility] 08-05-2021 Note [facility] 08[facility]05-2021 Note [facility] 08[facility]05-2021 Note [facility] 08-04-2021 Note [facility] 08-04-2021 Note [facility] 08[facility]04-2021 Note [facility] 08-03-2021 Note [facility] 08-03-2021 Note [facility] 08-03-2021 Note [facility] 08-02-2021 Note [facility] 08-02-2021 Note [facility] 08[facility]02-2021 Note [facility] 08-01-2021 Note [facility] 08-01-2021 Note [facility] 08[facility]01-2021 Note [facility] 08-01-2021 Note [facility] 07-31-2021 Note [facility] 07-31-2021 Note [facility] 07-30-2021 Note [facility] 07-30-2021 Note [facility] 07-30-2021 Note [facility] 07-29-2021 Note [facility] 07-29-2021 Note [facility] 07-29-2021 Note [facility] 07-28-2021 Note [facility] 07-28-2021 Note [facility] 07-28-2021 Note [facility] 07-27-2021 Note [facility] 07-27-2021 Note [facility] 07-27-2021 Note [facility] 07-26-2021 Note [facility] 07[facility]26-2021 Note [facility] 07-26-2021 Note [facility] 07-26-2021 Note [facility] 07[facility]26-2021 Note [facility] 07-25-2021 Note [facility] 07-25-2021 Note [facility] 07-25-2021 Note [facility] 07-25-2021 Note [facility] 07-24-2021 Note [facility] 07[facility]24-2021 Note [facility] 07-24-2021 Note [facility] 07-23-2021 Note [facility] 07[facility]23-2021 Note [facility] 07[facility]23-2021 Note [facility] 07-23-2021 Note [facility] 07[facility]23-2021 Note [facility] 07-22-2021 Note [facility] 07-22-2021 Note [facility] 07-22-2021 Note [facility] 07-21-2021 Note [facility] 07-21-2021 Note [facility] 07-21-2021 Note [facility] 07-21-2021 History of [...] history of fever, elevated WBC, RP hematoma PROVIDER SCRIBE shunt tip grew anaerobic gram positive cocci 06/08/2021 PLAN: PROVIDER SCRIBE shunt tip sent to [facility] main, awaiting cx Continue Meropenem per I.D [...] Hydrocephalus - repeat CTH 2/ stable - 2 VA shunt removal and VPS shunt placed- EVD removed 06/10 PLAN: - following CSF studies; 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 for MEDICAL PHYSICS RESEARCHER infection at this time - ID following- Continue antibiotics: Meropenem -CSF leak from EVD site, appreciate NSGY recs> stat repeat CTH on 06/07 d/t concern for CSF leak, cephalematoma, CTH unremarkable -Tolerating TF - SBT WTE - PICC line placed documented as of this encounter (statuses as of 10/17/2021) [facility]03-17-2022 [facility]03-16-2022 [facility]03-16-2022 [facility]03-16-2022 Note [facility]03-16-2022 [facility] 07-19-2021 [facility]03-15-2022 [facility]03-15-2022 [facility]03-14-2022 [facility]03-14-2022 [facility]03-13-2022 [facility]03-13-2022 [facility]03-12-2022 Note [facility]03-12-2022 [facility] 07-15-2021 [facility]03-11-2022 [facility]03-10-2022 [facility]03-10-2022 [facility]03-10-2022 [facility]03-09-2022 [facility]03-09-2022 [facility]03-09-2022 Note [facility]03-09-2022 [facility] 07-12-2021 [facility]03-08-2022 [facility]03-07-2022 [facility]03-07-2022 [facility]03-07-2022 [facility]03-07-2022 [facility]03-06-2022 [facility]03-06-2022 Note [facility]03-05-2022 [facility] 07-09-2021 [facility]03-05-2022 [facility]03-05-2022 [facility]03-05-2022 NoteHNO ID: [id number] Author: Lizette Valderrama RN Service: Nursing Author Type: Registered Nurse Type: Nursing Progress Note Filed: 07/09/2021 1:41 AM Note Text: [facility] NoteHNO ID: [id number] Author: Lizette Valderrama RN Service: Nursing Author Type: Registered Nurse Type: Nursing Progress Note Filed: 07/08/2021 8:57 PM Note Text: [address] 2049 back to PACU [facility]03-04-2022 NoteHNO ID: [id number] Author: Sukhi Chery APRN.CNP Service: ? Author Type: Nurse Practitioner Type: Progress Notes Filed: 07/09/2021 6:46 PM Note Text: Connected Care Unit Progress Note Patient Name: Andrew Sifuentes Patient Facility: [place] Admit Date 06/28/2021 Level of Care: Skilled [...] Dept Phone 07/21/2021 11:00 AM NICOLE LIM [phone] HPI: (Per Dr. Beltran) Andrew Sifuentes is being seen today for snf facility (SNF) admission AND management of weakness, tube feed, infected retroperitoneal infection and seizure. ? This is a 71 year old male who presents from [facility] with primary admitting diagnosis of [...] CT brain concerning for hydrocephalus. Tip of PROVIDER SCRIBE shunt was found to be in the [...] slow to respond. Ordered to transfer to [facility] ED for evaluation of neurological and [...] changes in co (more content not included)... [facility]03-04-2022 [facility]03-04-2022 [facility]03-02-2022 NoteHNO ID: [id number] Author: Sukhi Chery APRN.CNP Service: ? Author Type: Nurse Practitioner Type: Progress Notes Filed: 07/09/2021 6:20 PM Note Text: Connected Care Unit Progress Note Patient Name: Andrew Sifuentes Patient Facility: [place] Admit Date 06/28/2021 Level of Care: Skilled [...] unspecified type, unspecified whether septic shock present ([facility]) - Dr. Mckenzie with ID Following - Continue on Vancomycin - PICC Line Intact - No fevers or chills per patient or staff (R53.81) Debility - Certify therapies - Maintain high falls risk precautions - pt/staff verbalize understanding validated via teach back - Monitor safety awareness Appointments for Next 60 Days Date Time Provider Location Dept Phone 07/21/2021 11:00 AM CHANDLER NICOLE SUZEVENITA JERED [phone] HPI: (Per Dr. Beltran) Andrew Sifuentes is being seen today for snf facility (SNF) admission AND management of weakness, tube feed, infected retroperitoneal infection and seizure. ? This is a 71 year old male who presents from [facility] with primary admitting diagnosis of [...] CT brain concerning for hydrocephalus. Tip of PROVIDER SCRIBE shunt was found to be in the [...] Pharynx: Oropharynx is clear. (more content not included)...[facility]02-28-2022 NoteHNO ID: [id number] Author: Sukhi Chery APRN.VICTORIANO Service: ? Author Type: Nurse Practitioner Type: Progress Notes Filed: 07/09/2021 6:07 PM Note Text: Connected Care Unit Progress Note Patient Name: Andrew Sifuentes Patient Facility: [place] Admit Date 06/28/2021 Level of Care: Skilled [...] but nursing notes it was drawn by cobbler upper as vancomycin was being infused; reordered trough - PICC Line Intact - No fevers or chills per patient or staff (R53.81) Debility - Certify therapies - Maintain high falls risk precautions - pt/staff verbalize understanding validated via teach back - Monitor safety awareness Appointments for Next 60 Days Date Time Provider Location Dept Phone 07/21/2021 11:00 AM CHANDLERCELINALISSY STEPH LAWTON [phone] HPI: (Per Dr. Beltran) Andrew Sifuentes is being seen today for snf facility (SNF) admission AND management of weakness, tube feed, infected retroperitoneal infection and seizure. ? This is a 71 year old male who presents from [facility] with primary admitting diagnosis of [...] CT brain concerning for hydrocephalus. Tip of PROVIDER SCRIBE shunt was found to be in the [...] to facility records. OBJECTIVE: Labs/diagnostics: 07/04/2021 Glucose=91 Gw=515 K=3.8 Sl=803 CO2=24 BUN=14 Creatinine=0.5 UTU=741 Ca=9.0 Protein,Total=6.7 Albumin=3.6 RnvEvjt=517 AST=15 ALT=21 Bilirubin,Totall=0.5 WBC=10.7 RBC=4.04 Hgb=10.9 Hct=35.3 Dszmapyh=897 VancomycinTr (more content not included)...[facility]02-24-2022 NoteHNO ID: [id number] Author: Sukhi Chery APRN.CNP Service: ? Author Type: Nurse Practitioner Type: Progress Notes Filed: 07/09/2021 5:43 PM Note Text: Connected Care Unit Progress Note Patient Name: Andrew Sifuentes Patient Facility: [place] Admit Date 06/28/2021 Level of Care: Skilled [...] Phone 07/21/2021 11:00 AM NICOLE LIM GENERA [phone] HPI: (Per Dr. Beltran) Andrew Sifuentes is being seen today for snf facility (SNF) admission AND management of weakness, tube feed, infected retroperitoneal infection and seizure. ? This is a 71 year old male who presents from [facility] with primary admitting diagnosis of [...] CT brain concerning for hydrocephalus. Tip of PROVIDER SCRIBE shunt was found to be in the [...] uncontrolled pain exacerbations. Medications: Medications listed in [facility] during SNF admission may not be current. Refer to facility record. Patient records, current medications, most recent labs, family/social history (unchanged) Reviewed. Refer to facility records. OBJECTIVE: Labs/diagnostics: 07/01/2021 Glucose=83 Mr=545 K=4.1 Dk=829 CO2=27 BUN=22 Creatinine=0.6 GXH=596 Ca=8.7 WBC=10.8 RBC=3.40 Hgb=9.3 Hct=29.9 Sjzqzqsm=976 Vital Signs: BP 128/80 Pulse 77 Temp 36.7 ?C (98 ?F) Resp 20 Ht 182.9 cm (6') Wt 113 kg (249 lb 3.2 oz) SpO2 96% BMI 33.80 kg/m? Physical Exam: Physical Exam Vitals reviewed. Constitutional: General: He is not in acute distress. (more content not included)...[facility]02-22-2022 [facility]02-22-2022 [facility]02-21-2022 [facility]02-21-2022 Note [facility]02-20-2022 [facility] 06-26-2021 [facility]02-19-2022 [facility]02-19-2022 [facility]02-18-2022 [facility]02-18-2022 [facility]02-18-2022 [facility]02-17-2022 [facility]02-17-2022 Note [facility]02-17-2022 [facility] 06-22-2021 NoteO ID: [id number] Author: Xiomy England RN Service: Nursing Author Type: Registered Nurse Type: Nursing Progress Note Filed: 06/22/2021 7:22 PM Note Text: RT contacted as pt has wheezing auscultated and same auditory. For prn Treatment.[facility]02-16-2022 [facility]02-16-2022 [facility]02-16-2022 [facility]02-16-2022 [facility]02-16-2022 [facility]02-15-2022 [facility]02-15-2022 Note [facility]02-15-2022 [facility] 06-21-2021 [facility]02-14-2022 [facility]02-14-2022 [facility]02-14-2022 [facility]02-14-2022 [facility]02-14-2022 [facility]02-13-2022 [facility]02-13-2022 Note [facility]02-13-2022 [facility] 06-19-2021 [facility]02-13-2022 [facility]02-12-2022 [facility]02-12-2022 [facility]02-12-2022 [facility]02-12-2022 [facility]02-12-2022 [facility]02-12-2022 Note [facility]02-12-2022 NoteHNO ID: [id number] Author: Ambar Note Service: ? Author Type: ? Type: Progress Notes Filed: 06/18/2021 3:10 AM Note Text: Epic Scheduled Downtime: 06/18/2021 1:00:00 AM to 06/18/2021 2:27:00 [facility]02-11-2022 [facility]02-11-2022 Note [facility]02-11-2022 [facility] 06-17-2021 [facility]02-11-2022 [facility]02-11-2022 [facility]02-10-2022 [facility]02-10-2022 [facility]02-10-2022 [facility]02-10-2022 [facility]02-10-2022 Note [facility]02-10-2022 [facility] 06-15-2021 [facility]02-09-2022 NoteHNO ID: [id number] Author: Lamonte Kline DO Service: Neurology ICU Author Type: Resident Type: Plan of Care Filed: 06/15/2021 6:21 PM Note Text: Patient's daughter Melissa updated on plan of care and critical condition, all questions answered.[facility]02-09-2022 [facility]02-09-2022 [facility]02-09-2022 [facility]02-09-2022 [facility]02-09-2022 Note [facility]02-09-2022 [facility] 06-15-2021 [facility]02-08-2022 [facility]02-08-2022 [facility]02-08-2022 [facility]02-08-2022 [facility]02-07-2022 [facility]02-07-2022 [facility]02-07-2022 Note [facility]02-07-2022 [facility] 06-12-2021 [facility]02-06-2022 [facility]02-06-2022 [facility]02-05-2022 [facility]02-05-2022 [facility]02-04-2022 [facility]02-04-2022 [facility]02-04-2022 Note [facility]02-04-2022 [facility] 06-09-2021 [facility]02-03-2022 [facility]02-03-2022 [facility]02-03-2022 [facility]02-02-2022 [facility]02-02-2022 NoteHNO ID: [id number] Author: Luis Diaz RN Service: ? Author Type: Registered Nurse Type: Nursing Progress Note Filed: 06/08/2021 9:23 AM Note Text: Patient off the floor to OR at this time.[facility]02-02-2022 [facility]02-02-2022 [facility] 06-08-2021 NoteHNO ID: [id number] Author: Eloise Samuel RN Service: ? Author Type: Registered Nurse Type: Nursing Progress Note Filed: 06/08/2021 12:46 AM Note Text: Dr. Brito notified of changes throughout shift. No new orders [facility] 06-07-2021 NoteHNO ID: [id number] Author: Eloise Samuel RN Service: ? Author Type: Registered Nurse Type: Nursing Progress Note Filed: 06/07/2021 8:01 PM Note Text: Neuro surg VEGETABLE GROWER notified of downward deviation of pupils. No new orders at this time.[facility]02-01-2022 [facility]02-01-2022 [facility]02-01-2022 [facility]02-01-2022 [facility]01-31-2022 [facility]01-31-2022 [facility]01-31-2022 Note [facility]01-31-2022 [facility] 06-05-2021 [facility]01-30-2022 [facility]01-30-2022 [facility]01-29-2022 [facility]01-29-2022 NoteHNO ID: [id number] Author: Jermaine Miller PA-C Service: Neurosurgery Author Type: Physician Safety Attendant Type: Plan of Care Filed: 06/04/2021 1:59 PM Note Text: Discussed with Dr. Charles CT brain results. At this time, continue with EVD [facility] 06-04-2021 [facility]01-28-2022 [facility]01-28-2022 NoteHNO ID: [id number] Author: Mauricio Frank DO Service: Neurology ICU Author Type: Physician Type: Plan of Care Filed: 06/03/2021 2:38 PM Note Text: I spoke with Melissa and updated her over the phone. Mauricio Frank, [facility]01-28-2022 [facility]01-28-2022 [facility]01-27-2022 [facility]01-27-2022 [facility]01-27-2022 Note [facility]01-26-2022 [facility] 06-01-2021 [facility]01[facility]26[facility] Note [facility]25[facility] Leg swelling- Primary Swelling of limb Acute deep vein thrombosis (DVT) of proximal vein of lower extremity, unspecified laterality (HCC) DVT, lower extremity, recurrent, unspecified laterality (HCC) Moderate malnutrition (HCC) Malnutrition of moderate degree History of seizures Personal history of other disorders of nervous system and sense organs documented in this encounter [facility] Work Phone: Evaluation noteNo assessment information available [facility] Work Phone: Evaluation note* Diagnosis Other [...] tract symptoms (LUTS) documented in this encounter [facility]* Diagnosis Left flank pain Abdominal pain, unspecified site Calculus of ureter [facility] Diagnosis Left flank pain- Primary Abdominal pain, unspecified site BPH with urinary obstruction Hypertrophy of prostate with urinary obstruction and other lower urinary tract symptoms (LUTS) History of kidney stones [facility] Name Dates Details Instructions not documented [id number] Work Phone: Instructions* Name Dates Details Instructions not documented [id number] [place] Work Phone: Reason for referral (narrative)No reason for referral information availableWThe [facility] Work Phone: Advance Directives No Advanced Directives Records FoundDocuments on File Type Date Recorded Patient Perennial House Manager Expl anation Advance Directives and Living Will Power of Land Acquisition Manager Documents on File Type Date Recorded Patient Perennial House Manager Expl anation Advance Directive(s) 06/02/2021 2:45 PM [...] Maker Relationship: 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 Adult Children (access service representative) Documents on File Type Date Recorded Patient Perennial House Manager Expl anation ACP-Advance Directive ACP-Power of Land Acquisition Manager Latest Code Status on File Code Status Date Activated Date Inactivated Comments Full Code 10/21/2021 4:09 AM Healthcare Agents on File Name Relationship Healthcare Agent Relationshi p Communication Melissa Sifuentes Child Primary Decision Maker deann Sifuentes Child Secondary Decision Maker Documents on File Type Date Recorded Patient Perennial House Manager Expl anation ACP-Advance Directive ACP-Power of Land Acquisition Manager ACP-Do Not Resuscitate 11/01/2021 7:03 AM Latest Code Status on File Code Status Date Activated Date Inactivated Comments Full Code 10/21/2021 4:09 AM 10/29/2021 7:25 PM Healthcare Agents on File Name Relationship Healthcare Agent Relationshi p Communication Melissa Sifuentes Child Primary Decision Maker deann Gurpreet Child Secondary Decision Maker Documents on File Type Date Recorded Patient Perennial House Manager Expl anation ACP-Do Not Resuscitate 11/03/2021 10:15 AM ACP-Do Not Resuscitate 11/01/2021 7:03 AM Healthcare Agents on File Name Relationship Healthcare Agent Relationshi p Communication Melissakb Dengyer Child Primary Decision Maker deann Gurpreet Child Secondary Decision Maker Documents on File Type Date Recorded Patient Perennial House Manager Expl anation ACP-Do Not Resuscitate 11/03/2021 10:15 [...] Documents on File Type Date Recorded Patient Perennial House Manager Expl anation DNR (Do Not Resuscitate) 10/31/2021 DNR (Do Not Resuscitate) 10/21/2021 Documents on File Type Date Recorded Patient Perennial House Manager Expl anation DNR (Do Not Resuscitate) 10/31/2021 [...] WORK LABWORK Chief Complaint LAB WORK LABWORK SENIOR CARE LAB WORK SENIOR CARE LABWORK Chief Complaint LAB WORK LABWORK SENIOR CARE LAB WORK SENIOR CARE LABWORK LABWORK LABWORK SENIOR CARE LAB WORK SENIOR CARE LABWORK SENIOR CARE LAB WORK LABWORK SENIOR CARE LAB WORK LABWORK SENIOR CARE LABWORK Chief Complaint LAB WORK LABWORK SENIOR CARE LAB WORK SENIOR CARE LABWORK LABWORK LABWORK SENIOR CARE LAB WORK SENIOR CARE LABWORK SENIOR CARE LAB WORK LABWORK SENIOR CARE LAB WORK LABWORK SENIOR CARE LABWORK SENIOR CARE LABWORK LABWORK Chief Complaint LAB WORK LABWORK SENIOR CARE LAB WORK SENIOR CARE LABWORK LABWORK LABWORK SENIOR CARE LAB WORK SENIOR CARE LABWORK SENIOR CARE LAB WORK LABWORK SENIOR CARE LAB WORK LABWORK SENIOR CARE LABWORK SENIOR CARE LABWORK LABWORK SENIOR CARE LAB WORK Chief Complaint LABWORK SENIOR CARE LAB WORK SENIOR CARE LABWORK LABWORK LABWORK SENIOR CARE LAB WORK SENIOR CARE LABWORK SENIOR CARE LAB WORK LABWORK SENIOR CARE LAB WORK LABWORK SENIOR CARE LABWORK SENIOR CARE LABWORK LABWORK LABWORK SENIOR CARE LAB WORK Chief Complaint LABWORK SENIOR CARE LAB WORK SENIOR CARE LABWORK LABWORK LABWORK SENIOR CARE LAB WORK SENIOR CARE LABWORK SENIOR CARE LAB WORK LABWORK SENIOR CARE LAB WORK LABWORK SENIOR CARE LABWORK SENIOR CARE LABWORK LABWORK LABWORK SENIOR CARE LAB WORK LABWORK SENIOR CARE LABWORK SENIOR CARE LAB WORK SENIOR CARE LABWORK Chief Complaint SENIOR CARE LAB WOR K SENIOR CARE LABWORK LABWORK LABWORK SENIOR CARE LAB WORK SENIOR CARE LABWORK SENIOR CARE LAB WORK LABWORK SENIOR CARE LAB WORK LABWORK SENIOR CARE LABWORK SENIOR CARE LABWORK LABWORK LABWORK SENIOR CARE LAB WORK LABWORK SENIOR CARE LABWORK SENIOR CARE LAB WORK SENIOR CARE LABWORK SENIOR CARE LAB WORK Chief Complaint SENIOR CARE LABWORK LABWORK LABWORK SENIOR CARE LAB WORK SENIOR CARE LABWORK SENIOR CARE LAB WORK LABWORK SENIOR CARE LAB WORK LABWORK SENIOR CARE LABWORK SENIOR CARE LABWORK LABWORK LABWORK SENIOR CARE LAB WORK LABWORK SENIOR CARE LABWORK SENIOR CARE LAB WORK SENIOR CARE LABWORK LABWORK SENIOR CARE LAB WORK Chief Complaint SENIOR CARE LAB WOR K SENIOR CARE LABWORK SENIOR CARE LAB WORK LABWORK SENIOR CARE LAB WORK LABWORK SENIOR CARE LABWORK SENIOR CARE LABWORK LABWORK LABWORK SENIOR CARE LAB WORK LABWORK SENIOR CARE LABWORK SENIOR CARE LAB WORK SENIOR CARE LABWORK LABWORK LABWORK SENIOR CARE LAB WORK SENIOR CARE PATIENT SENIOR CARE LABWORK SENIOR CARE LABWORK Chief Complaint LABWORK SENIOR CARE LAB WORK LABWORK SENIOR CARE LABWORK SENIOR CARE LABWORK LABWORK LABWORK SENIOR CARE LAB WORK LABWORK SENIOR CARE LABWORK SENIOR CARE LAB WORK SENIOR CARE LABWORK LABWORK LABWORK SENIOR CARE LAB WORK SENIOR CARE PATIENT SENIOR CARE LABWORK SENIOR CARE LABWORK SENIOR CARE LAB WORK Chief Complaint LABWORK SENIOR CARE LABWORK SENIOR CARE LABWORK LABWORK LABWORK SENIOR CARE LAB WORK LABWORK SENIOR CARE LABWORK SENIOR CARE LAB WORK SENIOR CARE LABWORK LABWORK LABWORK SENIOR CARE LAB WORK SENIOR CARE PATIENT SENIOR CARE LABWORK SENIOR CARE LABWORK SENIOR CARE LAB WORK SENIOR CARE LAB WORK SENIOR CARE LAB WORK Chief Complaint LABWORK LABWORK SENIOR CARE LAB WORK SENIOR CARE PATIENT SENIOR CARE LABWORK SENIOR CARE LABWORK SENIOR CARE LAB WORK SENIOR CARE LAB WORK SENIOR CARE LAB WORK SENIOR CARE LABWORK SENIOR CARE LABWORK LABWORK SENIOR CARE LAB WORK LABWORK Chief Complaint SENIOR CARE LAB WOR K SENIOR CARE PATIENT SENIOR CARE LABWORK SENIOR CARE LABWORK SENIOR CARE LAB WORK SENIOR CARE LAB WORK SENIOR CARE LAB WORK SENIOR CARE LABWORK SENIOR CARE LABWORK LABWORK SENIOR CARE LAB WORK LABWORK SENIOR CARE LABWORK Chief Complaint SENIOR CARE PATIENT SENIOR CARE LABWORK SENIOR CARE LABWORK SENIOR CARE LAB WORK SENIOR CARE LAB WORK SENIOR CARE LAB WORK SENIOR CARE LABWORK SENIOR CARE LABWORK LABWORK SENIOR CARE LAB WORK LABWORK SENIOR CARE LABWORK SENIOR CARE LABWORK Chief Complaint SENIOR CARE LABWORK SENIOR CARE LAB WORK SENIOR CARE LAB WORK SENIOR CARE LAB WORK SENIOR CARE LABWORK SENIOR CARE LABWORK LABWORK SENIOR CARE LAB WORK LABWORK SENIOR CARE LABWORK SENIOR CARE LABWORK SENIOR CARE LABWORK Chief Complaint SENIOR CARE LABWORK SENIOR CARE LAB WORK SENIOR CARE LAB WORK SENIOR CARE LAB WORK SENIOR CARE LABWORK SENIOR CARE LABWORK LABWORK SENIOR CARE LAB WORK LABWORK SENIOR CARE LABWORK SENIOR CARE LABWORK SENIOR CARE LABWORK SENIOR CARE LABWORK Chief Complaint SENIOR CARE LABWORK LABWORK SENIOR CARE LAB WORK LABWORK SENIOR CARE LABWORK SENIOR CARE LABWORK SENIOR CARE LABWORK SENIOR CARE LABWORK SENIOR CARE LABWORK LABWORK SENIOR CARE LABWORK Chief Complaint LABWORK SENIOR CARE LAB WORK LABWORK SENIOR CARE LABWORK SENIOR CARE LABWORK SENIOR CARE LABWORK SENIOR CARE LABWORK SENIOR CARE LABWORK LABWORK LABWORK SENIOR CARE LABWORK SENIOR CARE LAB WORK SENIOR CARE LABWORK SENIOR CARE LAB WORK Chief Complaint LABWORK SENIOR CARE LAB WORK LABWORK SENIOR CARE LABWORK SENIOR CARE LABWORK SENIOR CARE LABWORK SENIOR CARE LABWORK SENIOR CARE LABWORK LABWORK LABWORK SENIOR CARE LABWORK SENIOR CARE LAB WORK SENIOR CARE LABWORK SENIOR CARE LAB WORK SENIOR CARE LABWORK Chief Complaint LABWORK SENIOR CARE LAB WORK LABWORK SENIOR CARE LABWORK SENIOR CARE LABWORK SENIOR CARE LABWORK SENIOR CARE LABWORK SENIOR CARE LABWORK LABWORK LABWORK SENIOR CARE LABWORK SENIOR CARE LAB WORK SENIOR CARE LABWORK SENIOR CARE LAB WORK SENIOR CARE LABWORK LABWORK Chief Complaint SENIOR CARE LABWORK SENIOR CARE LABWORK SENIOR CARE LABWORK SENIOR CARE LABWORK SENIOR CARE LABWORK LABWORK LABWORK SENIOR CARE LABWORK SENIOR CARE LAB WORK SENIOR CARE LABWORK SENIOR CARE LAB WORK SENIOR CARE LABWORK LABWORK SENIOR CARE LABWORK Chief Complaint SENIOR CARE LABWORK SENIOR CARE LABWORK SENIOR CARE LABWORK SENIOR CARE LABWORK SENIOR CARE LABWORK LABWORK LABWORK SENIOR CARE LABWORK SENIOR CARE LAB WORK SENIOR CARE LABWORK SENIOR CARE LAB WORK SENIOR CARE LABWORK LABWORK SENIOR CARE LABWORK LABWORK Chief Complaint SENIOR CARE LABWORK LABWORK LABWORK SENIOR CARE LABWORK SENIOR CARE LAB WORK SENIOR CARE LABWORK SENIOR CARE LAB WORK SENIOR CARE LABWORK LABWORK SENIOR CARE LABWORK LABWORK SENIOR CARE LAB WORK SENIOR CARE LAB WORK SENIOR CARE LABWORK Chief Complaint LABWORK SENIOR CARE LABWORK LABWORK SENIOR CARE LAB WORK SENIOR CARE LAB WORK SENIOR CARE LABWORK SENIOR CARE LABWORK SENIOR CARE LAB WORK SENIOR CARE LAB WORK SENIOR CARE LAB WORK LABWORK SENIOR CARE LABWORK Chief Complaint SENIOR CARE LAB WOR K SENIOR CARE LAB WORK SENIOR CARE LABWORK SENIOR CARE LABWORK SENIOR CARE LAB WORK SENIOR CARE LAB WORK SENIOR CARE LAB WORK LABWORK SENIOR CARE LABWORK LABWORK SENIOR CARE LAB WORK SENIOR CARE LAB WORK Chief Complaint SENIOR CARE LAB WOR K SENIOR CARE LABWORK SENIOR CARE LABWORK SENIOR CARE LAB WORK SENIOR CARE LAB WORK SENIOR CARE LAB WORK LABWORK SENIOR CARE LABWORK LABWORK SENIOR CARE LAB WORK SENIOR CARE LAB WORK Chief Complaint SENIOR CARE LABWORK SENIOR CARE LABWORK SENIOR CARE LAB WORK SENIOR CARE LAB WORK SENIOR CARE LAB WORK LABWORK SENIOR CARE LABWORK LABWORK SENIOR CARE LAB WORK SENIOR CARE LAB WORK SENIOR CARE LABWORK LABWORK LABWORK Chief Complaint SENIOR CARE LAB WOR K SENIOR CARE LAB WORK SENIOR CARE LAB WORK LABWORK SENIOR CARE LABWORK LABWORK SENIOR CARE LAB WORK SENIOR CARE LAB WORK SENIOR CARE LABWORK LABWORK LABWORK LABWORK LABWORK LABWORK Chief Complaint SENIOR CARE LAB WOR K LABWORK SENIOR CARE LABWORK LABWORK SENIOR CARE LAB WORK SENIOR CARE LAB WORK SENIOR CARE LABWORK LABWORK LABWORK LABWORK LABWORK SENIOR CARE LABWORK SENIOR CARE LAB WORK LABWORK SENIOR CARE LAB WORK SENIOR CARE LAB WORK Chief Complaint SENIOR CARE LAB WOR K LABWORK SENIOR CARE LABWORK LABWORK SENIOR CARE LAB WORK SENIOR CARE LAB WORK SENIOR CARE LABWORK LABWORK LABWORK LABWORK LABWORK SENIOR CARE LABWORK SENIOR CARE LAB WORK LABWORK SENIOR CARE LAB WORK SENIOR CARE LAB WORK SENIOR CARE LABWORK Chief Complaint SENIOR CARE LAB WOR K SENIOR CARE LAB WORK SENIOR CARE LABWORK LABWORK LABWORK LABWORK LABWORK SENIOR CARE LABWORK SENIOR CARE LAB WORK LABWORK SENIOR CARE LAB WORK SENIOR CARE LAB WORK SENIOR CARE LABWORK NUSING HOME LAB WORK Chief Complaint SENIOR CARE LAB WOR K SENIOR CARE LABWORK LABWORK LABWORK LABWORK LABWORK SENIOR CARE LABWORK SENIOR CARE LAB WORK LABWORK SENIOR CARE LAB WORK SENIOR CARE LAB WORK SENIOR CARE LABWORK NUSING HOME LAB WORK LABWORK Chief Complaint SENIOR CARE LAB WOR K SENIOR CARE LABWORK LABWORK LABWORK LABWORK LABWORK SENIOR CARE LABWORK SENIOR CARE LAB WORK LABWORK SENIOR CARE LAB WORK SENIOR CARE LAB WORK SENIOR CARE LABWORK NUSING HOME LAB WORK SENIOR CARE LABWORK LABWORK Chief Complaint LABWORK SENIOR CARE LAB WORK SENIOR CARE LAB WORK SENIOR CARE LABWORK NUSING HOME LAB WORK SENIOR CARE LABWORK LABWORK SENIOR CARE LABWORK SENIOR CARE LAB WORK LABWORK LABWORK Chief Complaint NUSING HOME LAB WORK SENIOR CARE LABWORK LABWORK SENIOR CARE LABWORK SENIOR CARE LAB WORK LABWORK SENIOR CARE LAB WORK LABWORK LABWORK Chief Complaint NUSING HOME LAB WORK SENIOR CARE LABWORK LABWORK SENIOR CARE LABWORK SENIOR CARE LAB WORK LABWORK SENIOR CARE LAB WORK LABWORK SENIOR CARE LAB WORK LABWORK Chief Complaint SENIOR CARE LABWORK LABWORK SENIOR CARE LABWORK SENIOR CARE LAB WORK LABWORK SENIOR CARE LAB WORK LABWORK SENIOR CARE LAB WORK LABWORK LABWORK Chief Complaint SENIOR CARE LABWORK LABWORK SENIOR CARE LABWORK SENIOR CARE LAB WORK LABWORK SENIOR CARE LAB WORK LABWORK SENIOR CARE LAB WORK LABWORK LABWORK LABWORK Chief Complaint SENIOR CARE LABWORK LABWORK SENIOR CARE LABWORK SENIOR CARE LAB WORK LABWORK SENIOR CARE LAB WORK LABWORK SENIOR CARE LAB WORK LABWORK LABWORK LABWORK LABWORK Chief Complaint SENIOR CARE LABWORK LABWORK SENIOR CARE LABWORK SENIOR CARE LAB WORK LABWORK SENIOR CARE LAB WORK LABWORK SENIOR CARE LAB WORK LABWORK LABWORK SENIOR CARE LAB WORK LABWORK LABWORK LABWORK Chief Complaint LABWORK SENIOR CARE LABWORK SENIOR CARE LAB WORK LABWORK SENIOR CARE LAB WORK LABWORK SENIOR CARE LAB WORK LABWORK LABWORK SENIOR CARE LAB WORK LABWORK LABWORK LABWORK LABWORK LABWORK LABWORK LABWORK Chief Complaint SENIOR CARE LABWORK SENIOR CARE LAB WORK LABWORK SENIOR CARE LAB WORK LABWORK SENIOR CARE LAB WORK LABWORK LABWORK SENIOR CARE LAB WORK LABWORK LABWORK LABWORK LABWORK LABWORK LABWORK LABWORK LABWORK Chief Complaint LABWORK SENIOR CARE LAB WORK LABWORK SENIOR CARE LAB WORK LABWORK LABWORK SENIOR CARE LAB WORK LABWORK LABWORK LABWORK LABWORK LABWORK LABWORK LABWORK LABWORK LABWORK Chief Complaint SENIOR CARE LABWORK LABWORK LABWORK LABWORK LABWORK SENIOR CARE LABWORK SENIOR CARE LAB WORK LABWORK SENIOR CARE LAB WORK SENIOR CARE LAB WORK SENIOR CARE LABWORK NUSING HOME LAB WORK SENIOR CARE LABWORK LABWORK SENIOR CARE LABWORK SENIOR CARE LAB WORK Chief Complaint Admit Date SENIOR CARE LAB WORK March 13, 2024 5:00am LABWORK March 14, 2024 5 :00am SENIOR CARE LAB WORK March 17 4 5:00am SENIOR CARE LAB WORK March 18 5:00am SENIOR CARE LAB WORK March 19 4:00am SENIOR CARE LAB WORK March 20 4 5:00am SENIOR CARE LAB WORK March 24 4 5:00am SENIOR CARE LAB WORK March 27 5:00am LABWORK March 31, 2024 5:00am SENIOR CARE LAB WORK April 04 4 5:00am LABWORK April 07, 2024 5 :00am SENIOR CARE LAB WORK April 10, 2024 5:00am SENIOR CARE LAB WORK April 14, 2024 5:00am SENIOR CARE LAB WORK April 17 5:00am LABWORK April 21, 2024 5:00am SENIOR CARE LAB WORK April 24 4:00am LABWORK April 28, 2024 5:00am SENIOR CARE LAB WORK May 01 4:00am SENIOR CARE LAB WORK May 05 5:00am SENIOR CARE LAB WORK May 08, 2024 5:00am SENIOR CARE LAB WORK May 09, 2024 4:00am LABWORK May 12, 2024 5: 00am SENIOR CARE LAB WORK May 15, 2024 5:00am SENIOR CARE LAB WORK May 19, 2024 4:00am SENIOR CARE LAB WORK May 20, 2024 5:00am SENIOR CARE LAB WORK May 22, 2024 5:00am LABWORK May 26, 2024 5 :00am SENIOR CARE LAB WORK May 29, 2024 5:00am SENIOR CARE LAB WORK June 02, 2024 5:00am SENIOR CARE LAB WORK June 05, 2024 5:00am LABWORK June 09, 2024 5 :00am SENIOR CARE LAB WORK June 12, 2024 5:00am SENIOR CARE LAB WORK June 16 5:00am SENIOR CARE LAB WORK June 19 5:00am LABWORK June 23, 2024 5:00am SENIOR CARE LAB WORK June 26 5:00am SENIOR CARE LAB WORK June 30 5:00am Chief Complaint Admit Date LABWORK April 07, 2024 5 :00am SENIOR CARE LAB WORK April 10, 2024 5:00am SENIOR CARE LAB WORK April 14, 2024 5:00am SENIOR CARE LAB WORK April 17 5:00am LABWORK April 21, 2024 5:00am SENIOR CARE LAB WORK April 24 4:00am LABWORK April 28, 2024 5:00am SENIOR CARE LAB WORK May 01 4:00am SENIOR CARE LAB WORK May 05 5:00am SENIOR CARE LAB WORK May 08, 2024 5:00am SENIOR CARE LAB WORK May 09, 2024 4:00am LABWORK May 12, 2024 5: 00am SENIOR CARE LAB WORK May 15, 2024 5:00am SENIOR CARE LAB WORK May 19, 2024 4:00am SENIOR CARE LAB WORK May 20, 2024 5:00am SENIOR CARE LAB WORK May 22, 2024 5:00am LABWORK May 26, 2024 5 :00am SENIOR CARE LAB WORK May 29, 2024 5:00am SENIOR CARE LAB WORK June 02, 2024 5:00am SENIOR CARE LAB WORK June 05, 2024 5:00am LABWORK June 09, 2024 5 :00am SENIOR CARE LAB WORK June 12, 2024 5:00am SENIOR CARE LAB WORK June 16 5:00am SENIOR CARE LAB WORK June 19 5:00am LABWORK June 23, 2024 5:00am SENIOR CARE LAB WORK June 26 5:00am SENIOR CARE LAB WORK June 30 5:00am SENIOR CARE LAB WORK July 03 5:00am SENIOR CARE LAB WORK July 07, 2024 4: 00am LABWORK July 11, 2024 5:00 am LABWORK July 14, 2024 5:0 0am SENIOR CARE LAB WORK July 17, 2024 4 :00am SENIOR CARE LAB WORK July 24, 2024 4 :00am Chief Complaint Admit Date SENIOR CARE LAB WORK April 14, 2024 5:00am SENIOR CARE LAB WORK April 17 5:00am LABWORK April 21, 2024 5:00am SENIOR CARE LAB WORK April 24 4:00am LABWORK April 28, 2024 5:00am SENIOR CARE LAB WORK May 01 4:00am SENIOR CARE LAB WORK May 05 5:00am SENIOR CARE LAB WORK May 08, 2024 5:00am SENIOR CARE LAB WORK May 09, 2024 4:00am LABWORK May 12, 2024 5: 00am SENIOR CARE LAB WORK May 15, 2024 5:00am SENIOR CARE LAB WORK May 19, 2024 4:00am SENIOR CARE LAB WORK May 20, 2024 5:00am SENIOR CARE LAB WORK May 22, 2024 5:00am LABWORK May 26, 2024 5 :00am SENIOR CARE LAB WORK May 29, 2024 5:00am SENIOR CARE LAB WORK June 02, 2024 5:00am SENIOR CARE LAB WORK June 05, 2024 5:00am LABWORK June 09, 2024 5 :00am SENIOR CARE LAB WORK February 6th, 2025 5:00am SENIOR CARE LAB WORK June 16 5:00am SENIOR CARE LAB WORK June 19 5:00am LABWORK June 23, 2024 5:00am SENIOR CARE LAB WORK June 26 5:00am SENIOR CARE LAB WORK June 30 5:00am SENIOR CARE LAB WORK July 03 5:00am SENIOR CARE LAB WORK July 07, 2024 4: 00am LABWORK July 11, 2024 5:00 am LABWORK July 14, 2024 5:0 0am SENIOR CARE LAB WORK July 17, 2024 4 :00am SENIOR CARE LAB WORK July 24, 2024 4 :00am LABWORK July 25, 2024 5:0 0am Chief Complaint Admit Date SENIOR CARE LAB WORK April 14, 2024 5:00am SENIOR CARE LAB WORK April 17 5:00am LABWORK April 21, 2024 5:00am SENIOR CARE LAB WORK April 24 4:00am LABWORK April 28, 2024 5:00am SENIOR CARE LAB WORK May 01 4:00am SENIOR CARE LAB WORK May 05 5:00am SENIOR CARE LAB WORK May 08, 2024 5:00am SENIOR CARE LAB WORK May 09, 2024 4:00am LABWORK May 12, 2024 5: 00am SENIOR CARE LAB WORK May 15, 2024 5:00am SENIOR CARE LAB WORK May 19, 2024 4:00am SENIOR CARE LAB WORK May 20, 2024 5:00am SENIOR CARE LAB WORK May 22, 2024 5:00am LABWORK May 26, 2024 5 :00am SENIOR CARE LAB WORK May 29, 2024 5:00am SENIOR CARE LAB WORK June 02, 2024 5:00am SENIOR CARE LAB WORK June 05, 2024 5:00am LABWORK June 09, 2024 5 :00am SENIOR CARE LAB WORK June 12, 2024 5:00am SENIOR CARE LAB WORK June 16 5:00am SENIOR CARE LAB WORK June 19 5:00am LABWORK June 23, 2024 5:00am SENIOR CARE LAB WORK June 26 5:00am SENIOR CARE LAB WORK June 30 5:00am SENIOR CARE LAB WORK July 03 5:00am SENIOR CARE LAB WORK July 07, 2024 4: 00am LABWORK July 11, 2024 5:00 am LABWORK July 14, 2024 5:0 0am SENIOR CARE LAB WORK July 17, 2024 4 :00am SENIOR CARE LAB WORK July 21, 2024 5 :00am SENIOR CARE LAB WORK July 24, 2024 4 :00am LABWORK July 25, 2024 5:0 0am SENIOR CARE LAB WORK July 31, 2024 4 :00am Chief Complaint Admit Date SENIOR CARE LAB WORK April 17 5:00am LABWORK April 21, 2024 5:00am SENIOR CARE LAB WORK April 24 4:00am LABWORK April 28, 2024 5:00am SENIOR CARE LAB WORK May 01 4:00am SENIOR CARE LAB WORK May 05 5:00am SENIOR CARE LAB WORK May 08, 2024 5:00am SENIOR CARE LAB WORK May 09, 2024 4:00am LABWORK May 12, 2024 5: 00am SENIOR CARE LAB WORK May 15, 2024 5:00am SENIOR CARE LAB WORK May 19, 2024 4:00am SENIOR CARE LAB WORK May 20, 2024 5:00am SENIOR CARE LAB WORK May 22, 2024 5:00am LABWORK May 26, 2024 5 :00am SENIOR CARE LAB WORK May 29, 2024 5:00am SENIOR CARE LAB WORK June 02, 2024 5:00am SENIOR CARE LAB WORK June 05, 2024 5:00am LABWORK June 09, 2024 5 :00am SENIOR CARE LAB WORK June 12, 2024 5:00am SENIOR CARE LAB WORK June 16 5:00am SENIOR CARE LAB WORK June 19 5:00am LABWORK June 23, 2024 5:00am SENIOR CARE LAB WORK June 26 5:00am SENIOR CARE LAB WORK June 30 5:00am SENIOR CARE LAB WORK July 03 5:00am SENIOR CARE LAB WORK July 07, 2024 4: 00am LABWORK July 11, 2024 5:00 am LABWORK July 14, 2024 5:0 0am SENIOR CARE LAB WORK July 17, 2024 4 :00am SENIOR CARE LAB WORK July 21, 2024 5 :00am SENIOR CARE LAB WORK July 24, 2024 4 :00am LABWORK July 25, 2024 5:0 0am SENIOR CARE LAB WORK July 28, 2024 5 :00am SENIOR CARE LAB WORK July 31, 2024 4 :00am Chief Complaint Admit Date SENIOR CARE LAB WORK April 24 4:00am LABWORK April 28, 2024 5:00am SENIOR CARE LAB WORK May 01 4:00am SENIOR CARE LAB WORK May 05 5:00am SENIOR CARE LAB WORK May 08, 2024 5:00am SENIOR CARE LAB WORK May 09, 2024 4:00am LABWORK May 12, 2024 5: 00am SENIOR CARE LAB WORK May 15, 2024 5:00am SENIOR CARE LAB WORK May 19, 2024 4:00am SENIOR CARE LAB WORK May 20, 2024 5:00am SENIOR CARE LAB WORK May 22, 2024 5:00am LABWORK May 26, 2024 5 :00am SENIOR CARE LAB WORK May 29, 2024 5:00am SENIOR CARE LAB WORK June 02, 2024 5:00am SENIOR CARE LAB WORK June 05, 2024 5:00am LABWORK June 09, 2024 5 :00am SENIOR CARE LAB WORK June 12, 2024 5:00am SENIOR CARE LAB WORK June 16 5:00am SENIOR CARE LAB WORK June 19 5:00am LABWORK June 23, 2024 5:00am SENIOR CARE LAB WORK June 26 5:00am SENIOR CARE LAB WORK June 30 5:00am SENIOR CARE LAB WORK July 03 5:00am SENIOR CARE LAB WORK July 07, 2024 4: 00am LABWORK July 11, 2024 5:00 am LABWORK July 14, 2024 5:0 0am SENIOR CARE LAB WORK July 17, 2024 4 :00am SENIOR CARE LAB WORK July 21, 2024 5 :00am SENIOR CARE LAB WORK July 24, 2024 4 :00am LABWORK July 25, 2024 5:0 0am SENIOR CARE LAB WORK July 28, 2024 5 :00am SENIOR CARE LAB WORK July 31, 2024 4 :00am LABWORK August 04, 2024 5:0 0am Chief Complaint Admit Date SENIOR CARE LAB WORK May 15, 2024 5:00am SENIOR CARE LAB WORK May 19, 2024 4:00am SENIOR CARE LAB WORK May 20, 2024 5:00am SENIOR CARE LAB WORK May 22, 2024 5:00am LABWORK May 26, 2024 5 :00am SENIOR CARE LAB WORK May 29, 2024 5:00am SENIOR CARE LAB WORK June 02, 2024 5:00am SENIOR CARE LAB WORK June 05, 2024 5:00am LABWORK June 09, 2024 5 :00am SENIOR CARE LAB WORK June 12, 2024 5:00am SENIOR CARE LAB WORK June 16 5:00am SENIOR CARE LAB WORK June 19 5:00am LABWORK June 23, 2024 5:00am SENIOR CARE LAB WORK June 26 5:00am SENIOR CARE LAB WORK June 30 5:00am SENIOR CARE LAB WORK July 03 5:00am SENIOR CARE LAB WORK July 07, 2024 4: 00am LABWORK July 11, 2024 5:00 am LABWORK July 14, 2024 5:0 0am SENIOR CARE LAB WORK July 17, 2024 4 :00am SENIOR CARE LAB WORK July 21, 2024 5 :00am SENIOR CARE LAB WORK July 24, 2024 4 :00am LABWORK July 25, 2024 5:0 0am SENIOR CARE LAB WORK July 28, 2024 5 :00am SENIOR CARE LAB WORK July 31, 2024 4 :00am LABWORK August 04, 2024 5:0 0am LABWORK August 07, 2024 5:00 am SENIOR CARE LAB WORK August 11, 2024 5: 00am SENIOR CARE LAB WORK August 14, 2024 5 :00am SENIOR CARE LAB WORK August 18, 2024 5 :00am Chief Complaint Admit Date SENIOR CARE LAB WORK May 20, 2024 5:00am SENIOR CARE LAB WORK May 22, 2024 5:00am LABWORK May 26, 2024 5 :00am SENIOR CARE LAB WORK May 29, 2024 5:00am SENIOR CARE LAB WORK June 02, 2024 5:00am SENIOR CARE LAB WORK June 05, 2024 5:00am LABWORK June 09, 2024 5 :00am SENIOR CARE LAB WORK June 12, 2024 5:00am SENIOR CARE LAB WORK June 16 5:00am SENIOR CARE LAB WORK June 19 5:00am LABWORK June 23, 2024 5:00am SENIOR CARE LAB WORK June 26 5:00am SENIOR CARE LAB WORK June 30 5:00am SENIOR CARE LAB WORK July 03 5:00am SENIOR CARE LAB WORK July 07, 2024 4: 00am LABWORK July 11, 2024 5:00 am LABWORK July 14, 2024 5:0 0am SENIOR CARE LAB WORK July 17, 2024 4 :00am SENIOR CARE LAB WORK July 21, 2024 5 :00am SENIOR CARE LAB WORK July 24, 2024 4 :00am LABWORK July 25, 2024 5:0 0am SENIOR CARE LAB WORK July 28, 2024 5 :00am SENIOR CARE LAB WORK July 31, 2024 4 :00am LABWORK August 04, 2024 5:0 0am LABWORK August 07, 2024 5:00 am SENIOR CARE LAB WORK August 11, 2024 5: 00am SENIOR CARE LAB WORK August 14, 2024 5 :00am SENIOR CARE LAB WORK August 18, 2024 5 :00am LABWORK August 28, 2024 5:0 0am Chief Complaint Admit Date SENIOR CARE LAB WORK May 22, 2024 5:00am LABWORK May 26, 2024 5 :00am SENIOR CARE LAB WORK May 29, 2024 5:00am SENIOR CARE LAB WORK June 02, 2024 5:00am SENIOR CARE LAB WORK June 05, 2024 5:00am LABWORK June 09, 2024 5 :00am SENIOR CARE LAB WORK June 12, 2024 5:00am SENIOR CARE LAB WORK June 16 5:00am [facility] June 19 5:00am LABWORK June 23, 2024 5:00am [facility] June 26 5:00am [facility] June 30 5:00am [facility] July 03 5:00am [facility] July 07, 2024 4: 00am LABWORK July 11, 2024 5:00 am LABWORK July 14, 2024 5:0 0am [facility] WORK July 17, 2024 4 :00am [facility] WORK July 21, 2024 5 :00am [facility] WORK July 24, 2024 4 :00am LABWORK July 25, 2024 5:0 0am [facility] WORK July 28, 2024 5 :00am [facility] WORK July 31, 2024 4 :00am LABWORK August 04, 2024 5:0 0am LABWORK August 07, 2024 5:00 am [facility] WORK August 11, 2024 5: 00am [facility] WORK August 14, 2024 5 :00am [facility] WORK August 18, 2024 5 :00am [facility] WORK August 21, 2024 5 :00am LABWORK August 28, 2024 5:0 0am LABWORK September 01, 2024 5:0 0am Chief Complaint Admit Date [facility] WORK June 05, 2024 5:00am LABWORK June 09, 2024 5 :00am [facility] WORK June 12, 2024 5:00am [facility] WORK June 16 5:00am [facility] WORK June 19 5:00am LABWORK June 23, 2024 5:00am [facility] WORK June 26 5:00am [facility] WORK June 30 5:00am [facility] WORK July 03 5:00am [facility] WORK July 07, 2024 4: 00am LABWORK July 11, 2024 5:00 am LABWORK July 14, 2024 5:0 0am [facility] WORK July 17, 2024 4 :00am [facility] WORK July 21, 2024 5 :00am [facility] WORK July 24, 2024 4 :00am LABWORK July 25, 2024 5:0 0am [facility] WORK July 28, 2024 5 :00am [facility] WORK July 31, 2024 4 :00am LABWORK August 04, 2024 5:0 0am LABWORK August 07, 2024 5:00 am [facility] WORK August 11, 2024 5: 00am [facility] WORK August 14, 2024 5 :00am [facility] WORK August 18, 2024 5 :00am [facility] WORK August 21, 2024 5 :00am [facility] WORK August 25, 2024 4 :00am LABWORK August 28, 2024 5:0 0am LABWORK September 01, 2024 5:0 0am LABWORK September 04, 2024 5:00am Chief Complaint Admit Date [facility] WORK June 05, 2024 5:00am LABWORK June 09, 2024 5 :00am [facility] WORK June 12, 2024 5:00am [facility] WORK June 16 5:00am [facility] WORK June 19 5:00am LABWORK June 23, 2024 5:00am [facility] WORK June 26 5:00am [facility] WORK June 30 5:00am [facility] WORK July 03 5:00am [facility] WORK July 07, 2024 4: 00am LABWORK July 11, 2024 5:00 am LABWORK July 14, 2024 5:0 0am [facility] WORK July 17, 2024 4 :00am [facility] WORK July 21, 2024 5 :00am [facility] WORK July 24, 2024 4 :00am LABWORK July 25, 2024 5:0 0am [facility] WORK July 28, 2024 5 :00am [facility] WORK July 31, 2024 4 :00am LABWORK August 04, 2024 5:0 0am LABWORK August 07, 2024 5:00 am [facility] WORK August 11, 2024 5: 00am [facility] WORK August 14, 2024 5 :00am [facility] WORK August 18, 2024 5 :00am [facility] WORK August 21, 2024 5 :00am [facility] WORK August 25, 2024 4 :00am LABWORK August 28, 2024 5:0 0am LABWORK September 01, 2024 5:0 0am LABWORK September 04, 2024 5:00am LABWORK September 15, 2024 5:00a m Chief Complaint Admit Date [facility] WORK June 19 5:00am LABWORK June 23, 2024 5:00am [facility] WORK June 26 5:00am [facility] WORK June 30 5:00am [facility] WORK July 03 5:00am [facility] WORK July 07, 2024 4: 00am LABWORK July 11, 2024 5:00 am LABWORK July 14, 2024 5:0 0am [facility] WORK July 17, 2024 4 :00am [facility] WORK July 21, 2024 5 :00am [facility] WORK July 24, 2024 4 :00am LABWORK July 25, 2024 5:0 0am [facility] WORK July 28, 2024 5 :00am [facility] WORK July 31, 2024 4 :00am LABWORK August 04, 2024 5:0 0am LABWORK August 07, 2024 5:00 am [facility] WORK August 11, 2024 5: 00am [facility] WORK August 14, 2024 5 :00am [facility] WORK August 18, 2024 5 :00am [facility] WORK August 21, 2024 5 :00am [facility] WORK August 25, 2024 4 :00am LABWORK August 28, 2024 5:0 0am LABWORK September 01, 2024 5:0 0am LABWORK September 04, 2024 5:00am [facility] WORK September 08, 2024 4:00 am [facility] WORK September 11, 2024 5:00 am LABWORK September 15, 2024 5:00a m [facility] WORK September 25, 2024 5:0 0am [facility] WORK September 30, 2024 4:0 0am Chief Complaint Admit Date [facility] LAB WORK June 12, 2024 5:00am [facility] WORK June 16 5:00am [facility] WORK June 19 5:00am LABWORK June 23, 2024 5:00am [facility] WORK June 26 5:00am [facility] LAB WORK June 30 5:00am [facility] WORK July 03 5:00am [facility] LAB WORK July 07, 2024 4: 00am LABWORK July 11, 2024 5:00 am LABWORK July 14, 2024 5:0 0am [facility] LAB WORK July 17, 2024 4 :00am [facility] LAB WORK July 21, 2024 5 :00am [facility] LAB WORK July 24, 2024 4 :00am LABWORK July 25, 2024 5:0 0am [facility] LAB WORK July 28, 2024 5 :00am S[facility] LAB WORK July 31, 2024 4 :00am LABWORK August 04, 2024 5:0 0am LABWORK August 07, 2024 5:00 am [facility] LAB WORK August 11, 2024 5: 00am SEN[facility] LAB WORK August 14, 2024 5 :00am [facility] LAB WORK August 18, 2024 5 :00am [facility] LAB WORK August 21, 2024 5 :00am [facility] LAB WORK August 25, 2024 4 :00am LABWORK August 28, 2024 5:0 0am LABWORK September 01, 2024 5:0 0am LABWORK September 04, 2024 5:00am [facility] WORK September 08, 2024 4:00 am LABWORK September 15, 2024 5:00a m Chief Complaint Admit Date SEN[facility] LAB WORK July 07, 2024 4: 00am LABWORK July 11, 2024 5:00 am LABWORK July 14, 2024 5:0 0am [facility] LAB WORK July 17, 2024 4 :00am [facility] LAB WORK July 21, 2024 5 :00am [facility] LAB WORK July 24, 2024 4 :00am LABWORK July 25, 2024 5:0 0am SEN[facility] LAB WORK July 28, 2024 5 :00am [facility] LAB WORK July 31, 2024 4 :00am LABWORK August 04, 2024 5:0 0am LABWORK August 07, 2024 5:00 am SEN[facility] LAB WORK August 11, 2024 5: 00am S[facility] LAB WORK August 14, 2024 5 :00am S[facility] LAB WORK August 18, 2024 5 :00am SEN[facility] LAB WORK August 21, 2024 5 :00am SEN[facility] LAB WORK August 25, 2024 4 :00am LABWORK August 28, 2024 5:0 0am LABWORK September 01, 2024 5:0 0am LABWORK September 04, 2024 5:00am [facility] LAB WORK September 08, 2024 4:00 am S[facility] LAB WORK September 11, 2024 5:00 am LABWORK September 15, 2024 5:00a m [facility] LAB WORK September 18, 2024 5:0 0am [facility] LAB WORK September 22, 2024 5:0 0am S[facility] LAB WORK September 25, 2024 5:0 0am [facility] LAB WORK September 30, 2024 4:0 0am [facility] LAB WORK October 02, 2024 5:0 0am [facility] WORK October 09, 2024 5:0 0am Reason for Referral Specialty Diagnoses / Procedures Referred By Contac t Referred To Contact Urology Diagnoses Other fatigue Lanette Munguia DO [address] [place] [address] [facility] [address] [place] [address] Referral ID Status Reason Start Date Expiration Date V isits Requested Visits Authorized [id number] Open Specialty Services Required 11/01/2021 11/01/2022 1 1 Scheduling Instructions [facility] [place] Urology - [address] , [address] [place] [address] Specialty Diagnoses / Procedures Referred By Contac t Referred To Contact IP Unit Diagnoses Heel ulceration, left, with unspecified severity (HCC) Henry Hidalgo PA [address] [place] [address] [facility] [address] [place] [id number] Referral ID Status Reason Start Date Expiration Date V isits Requested Visits Authorized [id number] Open Specialty Services Required 12/22/2021 12/22/2022 1 1 Scheduling Instructions [facility] [address] [place] [id number] Comments Please use the parking lot located on [address] or [employer]. There are handicap parking spots located in a small lot beside the wound care entrance off of [address]. Please be advised there is a small incline from those handicap spots to our main door. Bring photo ID and insurance card to photocopy. Wear loose fitting clothing (to easily access wound). Bring list of medications (or can be sent by office). Check in at Registration for your first visit. Please call us directly with any questions [phone]. We look forward to helping you heal. Specialty Diagnoses / Procedures Referred By Aki t Referred To Contact Radiology Diagnoses Left flank pain Calculus of ureter Procedures CT abdomen pelvis wo IV contrast Rebecca Buck MD [address] [place] [address] Referral ID Status Reason Start Date Expiration Date V isits Requested Visits Authorized [id number] Pending Review 08/13/2023 08/12/2024 1 1 Referral ID Status Reason Start Date Expiration Date Visits Re quested Visits Authorized [id number] Closed 08/17/2023 09/16/2023 1 1 Additional Source Comments Source Comments (unrecognize d section and content) In the event this informatio n is protected by the Federal Confidentiality of Alcohol and Drug Abuse Patient Records regulations: The Federal rules restrict any use of the information to criminally investigate or prosecute any alcohol or drug abuse patient.[facility] the event this information is protected by the Federal Confidentiality of Alcohol and Drug Abuse Patient Records regulations: The Federal rules restrict any use of the information to criminally investigate or prosecute any alcohol or drug abuse patient.[facility] (unrecognized sect ion and content) No Status Records FoundNo Status Records FoundNo Status Records FoundNo Status Records FoundNo Status Records FoundNo Status Records FoundNo Status Records FoundNo Status Records FoundNo Status Records FoundNo Status Records Found INFORMATION SOURCE (unrecogn ized section and content) DATE CREATED AUTHOR 05/20/2021 [facility] [place] DATE CREATED AUTHOR AUTHOR'S ORGANIZ ATION 06/07/2021 [facility] DATE CREATED AUTHOR AUTHOR'S ORGANIZ ATION 08/02/2021 [facility] DATE CREATED AUTHOR AUTHOR'S ORGANIZ ATION 12/09/2021 [facility] DATE CREATED AUTHOR AUTHOR'S ORGANIZ ATION 12/29/2021 [facility] DATE CREATED AUTHOR AUTHOR'S ORGANIZ ATION 02/04/2022 [facility] DATE CREATED AUTHOR AUTHOR'S ORGANIZ ATION 03/03/2022 [facility] DATE CREATED AUTHOR AUTHOR'S ORGANIZ ATION 09/15/2023 [facility] DATE CREATED AUTHOR AUTHOR'S ORGANIZ ATION 12/12/2024 [facility] Reason for Visit (unrecogniz ed section and content) Reason Comments Missed Appointment Reason Comments Leg Swelling Blood clots Reason Comments Altered Mental Status Pt presents to ED via [facility] for complaint listed. Pt is from [facility]. Pt's LKW was 1000 hours today. Per EMS, pt had a - [place]. Pt denies CP, SOB, and N/V. Pt seems slow to respond, slightly confused at this time. Reason Comments [facility] did xrays on left lower leg and and have concerns for possible osteomyelitis A&Ox2 to self and place, stated year 2022 [facility] Reason Comments Fall Patient had unwitnes sed fall at [facility] landed on butt. Is on thinners, denies LOC, denies head injury has no complaints at this time Reason Comments New Patient Bilateral flank pain , hx of kidney stones Nephrolithiasis Reason Onset Date Comments Error (VOID this visit) 08/21/2023 Specialty Diagnoses / Procedures Referred By Aki t Referred To Contact Radiology Diagnoses Left flank pain Calculus of ureter Procedures CT abdomen pelvis wo IV contrast Rebecca Buck MD [address] [place] [address] Referral ID Status Reason Start Date Expiration Date Visits Re quested Visits Authorized [id number] Closed 08/17/2023 09/16/2023 1 1 Reason Comments [...] Status Dates Carlos NOVAK Attending Provider Active Customer Expert Relationship Specialty Start Date End Date Mateus Burrisoy [address] [place] [address] PCP - General Family Practice 11/12/19 Customer Expert Relationship Specialty [place] [address] [place] [address] PCP - General Family Medicine 09/09/20 Customer Expert Relationship Specialty [place] [address] [place] [address] PCP - General Family Medicine 09/09/20 Customer Expert Relationship Specialty [place] [address] [place] [address] PCP - General Family Medicine 09/09/20 Customer Expert Relationship Specialty Start Date End Date Carlos Cavazos MD [address] [facility] [address] [place], [place] [phone] PCP - General Internal Medicine 02/20/22 Team [...] Monika Staley MD Primary Care Provider Active Customer Expert Relationship Specialty Start Date End Date Carlos Cavazos [address] [place] [phone] PCP - General 12/21/21 Rebecca Buck MD [address] [place] [address] Surgeon Urology 06/25/23 Team Status: Inactive Member [...] NOVAK Attending Provider, Referring Provi lupillo Active Customer Expert Relationship Specialty Start Date End Date Carlos Cavazos [address] [place] [phone] PCP - General 12/21/21 Rebecca Buck MD [address] [place] [place] [address] Surgeon Urology 06/25/23 Customer Expert Relationship Specialty Start Date End Date Carlos Cavazos [address] [place] [phone] PCP - General 12/21/21 Rebecca Buck MD [address] [facility] [address] [place] [address] Surgeon Urology 06/25/23 Customer Expert Relationship Specialty Start Date End Date Carlos Cavazos [address] [place] [phone] PCP - General 12/21/21 Rebecca Buck MD [address] [address] Surgeon Urology 06/25/23 Customer Expert Relationship Specialty Start Date End Date Carlos Cavazos [address] [place] [phone] PCP - General 12/21/21 Rebecca Buck MD [address] [address] Surgeon Urology 06/25/23 Customer Expert Relationship Specialty Start Date End Date Carlos Cavazos [address] [place] [phone] PCP - General 12/21/21 Rebecca Buck MD [address] [address] Surgeon Urology 06/25/23 Customer Expert Relationship Specialty Start Date End Date Carlos Cavazos [address] [place] [phone] PCP - General 12/21/21 Rebecca Buck MD [address] [facility] [address] [place] [address] Surgeon Urology 06/25/23 Team Status: Inactive Member Role Status Dates Dr. Monika Staley MD Primary Care Provider Active Start: March 13, 2024 End: March 13, 2024 [facility] Attending Provider Active Start: March 13, 2024 End: March 13, 2024 Team Status: Inactive Member Role Status Dates Dr. Monika Staley MD Primary Care Provider Active Start: March 14, 2024 End: March 14, 2024 Carlos NOVAK Attending Provider Active Sta rt: March 14, 2024 End: March 14, 2024 Team Status: Inactive Member Role Status Dates Dr. Monika Staely MD Primary Care Provider Active Start: March 17, 2024 End: March 17, 2024 [facility] Attending Provider Active Start: March 17, 2024 End: March 17, 2024 Team Status: Inactive Member Role Status Dates Dr. Monika Staley MD Primary Care Provider Active Start: March 18, 2024 End: March 18, 2024 [facility] Attending Provider Active Start: March 18, 2024 [...] March 20, 2024 End: March 20, 2024 [facility] Attending Provider Active Start: March 20, 2024 [...] March 27, 2024 End: March 27, 2024 [facility] Attending Provider Active Start: March 27, 2024 [...] Care Provider Active Start: July 07, 2024 [facility] Attending Provider Active Start: July 07, 2024 [...] dose on Sun10/21/21 at 0900, Until Discontinued 0912 (Given - Provider: Rosanne Hoff RN)1437 (Given - Provider: Rosanne Hoff RN)203 (Given - Provider: Katlin Julio RN) 0816 (Given - Provider: Rosanne Hoff RN)1355 (Given - Provider: Rosanne Hoff RN)1926 (Given - Provider: Lisa Ashby RN) 1024 (Given - Provider: Fabi Subramanian RN)1547 (Given - Provider: Cliff Isidro RN)2100 (Due) bumetanide (BUMEX) tablet 2 mg 2 mg, Oral, DAILY, First dose on Sun10/21/21 at 0900, Until Discontinued 910 (Given - Provider: Rosanne Hoff RN) 815 (Given - Provider: Rosanne Hoff RN) 102 (Given - Provider: Fabi Subramanian, AYUSH) enoxaparin (LOVENOX) injection 105 mg (CANCELED) 105 mg (rounded from 108.9 mg = 1 mg/kg 108.9 kg), SubCUTAneous, 2 TIMES DAILY, First dose on Sun10/21/21 at 0900, Until Discontinued, Indication of Use: Prophylaxis-DVT/PE 910 (Given - Provider: Rosanne Hoff RN)2035 (Given - Provider: Katlin Julio RN) 815 (Given - Provider: Rosanne Hoff RN) levETIRAcetam [...] Lisa Ashby, AYUSH)214 (Stopped - Provider: Lisa Asbhy, AYUSH) 1026 (New Bag - Provider: Fabi Subramanian [...] Hoff RN) 102 (Given - Provider: Fabi Subramanian, RN) sodium chloride flush 0.9 % injection [...] 20 mL/lumen 0912 (Given - Provider: Rosanne Hoff, RN)2035 (Given - Provider: Katlin Julio, RN) 0816 (Given - Provider: Rosanne Hoff [...] Hazardous med- See facility policy for handling/disposal 181 (Given - Provider: Rosanne Hoff RN) warfarin (COUMADIN) tablet 7.5 mg 7.5 mg, Oral, ONCE Warfarin, 1 dose, On [facility] 10/29/21 at 1800, Indication of Use: [...] BE BASED ON THE PRIMARY CLINICAL RECORDS. [facility]. provides no warranty or guarantee of the accuracy or completeness of information in this document.
[2024-12-15 10:53] LABS: Prothrombin Time (Protime)PT. 25.7 SECONDS (11.7-14.9)
== END ==
LOC: OLS.SANC 04:00
PROVIDERS: PCP General Practice
DX: Z79.01 Long term (current) use of 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 (principal)
CPT/HCPCS: 36415; 85610

== ENCOUNTER → 2024-12-18 | Outpatient (REF) | payer MEDICARE, MEDICAID, SELFPAY ==
[2024-12-18 11:04] LABS: Prothrombin Time (Protime)PT. 26.7 SECONDS (11.7-14.9)
== END ==
LOC: OLS.SANC 05:00
PROVIDERS: PCP General Practice
DX: Z79.01 Long term (current) use of 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 (principal)
CPT/HCPCS: 36415; 85610

== ENCOUNTER → 2024-12-22 04:00 | Outpatient (REF) | payer MEDICARE, MEDICAID, SELFPAY ==
--- OUTSIDE RECORDS SUMMARY | 2024-12-22 04:26 | XMS RPT_ITS | CCD ---
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 Monika Horner Primary Care Provider [facility] Attending Provider [phone] Carlos Nelson Attending Provider Jonh Pascual MD, Dr. Calderon Attending Provider Jany Crisostomo MD, Dr. Calderon Referring Provider Jany Staley MD, Dr. Monika Horner Primary Care Provider Carlos Nelson Attending Provider Jonh Pasucal MD, Dr. Calderon Attending Provider Dr. Kvng [...] Anglin Attending Provider Jonh Cardoza MD, Dr. Moniak Horner Primary Care Provider Andressa VALLADARES, Dr. Calderon Attending Provider Jany Staley MD, Dr. Monika Horner Primary Care Provider Andressa VALLADARES, Dr. Calderon Attending Provider Jany Staley MD, Dr. Monika Horner Primary Care Provider Andressa VALLADARES, Dr. Calderon Attending Provider Jeanineva Carlos Barnes Attending Provider Unavailab ish Staley MD, Dr. Monika Horner Primary Care Provider Andressa VALLADARES, Dr. Calderon Attending Provider Carlos Calderon Attending Provider Unavailab ish Staley MD, Dr. Monika Horner Primary Care Provider Andressa VALLADARES, Dr. Calderon Attending Provider Jany Staley MD, Dr. Monika Horner Primary Care Provider Carlos Nelson Attending Provider Unavailab le MukkKaron Hoover Referring Unavail able [place] Karon NOVAK Attending Unavail able Luís, Shiela Primary Care Unavailable Carlos Nelson Attending Unavailable Luís, Shiela Primary Care Unavailable [facility] [place] Attending Unavai labish Luís, Shiela Primary Care Unavailable [facility] [place] Attending Unavai lable Luís, Shiela Primary Care Unavailable Katsaros Carlos NOVAK Attending Unavailable Luís, Shiela Primary Care Unavailable [place] OLSKaron [...] Luís, Shiela Primary Care [facility]available [facility] [place] Attending Tricia bustamantele Luís, Shiela Primary Care [...] Luís, Shiela Primary Care Unavailable [place] OLS, Carlaavenoe Attending Unavail able Luís, Shiela Primary Care Unavailable [place] OLS, Carlaaveer Referring Unavail able [place] OLS, Melindaer Attending Unavail able Luís, Shiela Primary Care Unavailable [place] OLS, Carlaaveer Attending Unavail able Luís, Shiela Primary Care Unavailable [place] OLS, Carlaavenoe Attending Unavail able Luís, Shiela Primary Care [...] OLS, Carlaaveer Attending Unavail able [place] OLS, Mahaveer Referring [...] Luís, Shiela Primary Care Unavailable [facility] [place] Attending Unavai lable Luís, Shiela Primary Care Unavailable Katsaros OLS, Carlos Attending Unavailable Luís, Shiela Primary Care Unavailable Crisostomo OLSKvng Attending Unavailable Luís, Shiela Primary Care Unavailable [facility] [place] Attending Unavai lable Luís, Shiela Primary Care Unavailable [facility] [place] Attending Unavai lable Luís, Shiela Primary Care Unavailable Katsaros OLS, Peter Attending Unavailable Luís, Shiela Primary Care Unavailable [place] OLS, Carlaaveer Attending Unavail able Luís, Shiela Primary Care Unavailable Katsaros OLS, Peter Attending Unavailable Luís, Shiela Primary Care Unavailable [facility] [place] Attending Unavai lable Luís, Shiela Primary Care Unavailable Crisostomo OLSKvng Attending Unavailable Luís, Shiela Primary Care Unavailable Katsaros OLS, Peter Attending Unavailable Luís, Shiela Primary Care Unavailable [facility] [place] Attending Unavai lable Luís, Shiela Primary Care Unavailable [facility] [place] Attending Unavai lable Luís, Shiela Primary Care Unavailable [facility] [place] Attending Unavai lable Luís, Shiela Primary Care Unavailable Katsaros OLS, Peter Attending Unavailable Luís, Shiela Primary Care Unavailable Luís, Shiela Primary Care Unavailable [facility] [place] Attending Unavai lable Luís, Shiela Primary Care Unavailable [facility] [place] Attending Unavai lable CrisostomoKvng Levy Referring Unavailable Crisostomo OLS, Kvng Attending Unavailable Luís, Shiela Primary Care Unavailable Luís, Shiela Primary Care Unavailable [facility] [place] [facility] [place] [facility] Unavai lable Luís, Shiela Primary Care Unavailable [place] OLSKaron Attending Unavail able Luís, Shiela Primary Care Unavailable [place] OLSKaron Attending Unavail able Luís, Shiela Primary Care Unavailable Katsaros Carlos NOVAK Attending Unavailable Luís, Shiela Primary Care Unavailable Katsaros SCARLET, Peter Attending Unavailable Luís, Shiela Primary Care Unavailable [place] OLSKaron Referring Unavail able [place] OLSKaron Attending Unavail able Luís, Shiela Primary Care Unavailable Katsaros OLS, Peter Attending Unavailable Luís, Shiela Primary Care Unavailable Crisostomo OLSElizabethet Attending Unavailable Luís, Shiela Primary Care Unavailable Crisostomo OLS, Avisjeet Attending Unavailable Luís, Shiela Primary Care Unavailable Crisostomo OLS, Avisjeet Referring Unavailable Crisostomo OLS, Elizabethet Attending Unavailable Luís, [...] Care Unavailable Crisostomo OLS, Elizabethet Attending Unavailable Lusí, Shiela Primary Care Unavailable Crisostomo OLS, Babbaljeet Attending Unavailable Luís, Shiela Primary Care Unavailable [place] OLS, Mahaveer Referring Unavail able [place] OLS, Carlaaveer Attending Unavail able Luís, Shiela Primary Care Unavailable Katsaros OLS, Peter Attending Unavailable Luís, Shiela Primary Care Unavailable Katsaros OLS, Peter Attending Unavailable Luís, Shiela Primary Care Unavailable [place] OLS, Mahaveer Referring Unavail able [place] OLS, Mahaveer Attending Unavail able Luís, Shiela Primary Care Unavailable [place] OLS, Mahaveer Attending Unavail able Luís, Shieal Primary Care Unavailable Crisostomo OLS, Babbaljeet Attending Unavailable Luís, Shiela Primary Care [facility]available [facility] [place] Attending Janyi diannale Luís, Shiela Primary Care Unavailable Katsaros OLS, Peter Attending Unavailable Luís, Shiela Primary Care Unavailable Katsaros OLS, Peter Attending Unavailable Luís, Shiela Primary Care Unavailable Katsaros OLS, Peter Attending Unavailable Luís, Shiela Primary Care Unavailable Katsaros OLS, Peter Attending Unavailable Luís, Shiela Primary Care Unavailable [place] OLS, Melindaer Attending Unavail able Luís, Shiela Primary Care Unavailable Crisostomo OLS, Vicentebaljeet Referring Unavailable Crisostomo OLS, Elizabethet Attending Unavailable Luís, Shiela Primary Care Unavailable Katsaros OLS, Peter Attending Unavailable Luís, Shiela Primary Care Unavailable Crisostomo OLS, Babbaljeet Referring Unavailable Crisostomo OLS, Avisjeet Attending Unavailable Luís, Shiela Primary Care Unavailable [place] OLS, Carlaaveer Attending Unavail able Luís, Shiela Primary Care Unavailable Katsaros OLS, Peter Attending Unavailable Luís, Shiela Primary Care Unavailable [facility] [place] Attending Tricia denise Luís, Shiela Primary Care Unavailable [place] OLS, [...] Facility (13 sources) Morphine Drug Allergy 5 [facility] Work Phone: (15 sources) Alcohol Propensity to adverse reactions to drug 3 Rash, Hives, Other: See Comments, Other [facility] Work Phone: (1 source) Latex Drug Allergy 0 Rash [facility] (8 sources) Cortisone Drug Allergy 2 [facility] (7 sources) Latex Allergy to substance 0 Rash [facility] Medications Current Medications Medication Drug Class(es) Dates Sig (Normalized) Sig (Original) Acetaminophen (10 sources) Start: 10-21-2021 acetaminophen (TYLENOL) tablet 650 mg Start: 09-14-2021 acetaminophen (TYLENOL) 325 MG tablet 650 mg every 6 hours as needed 0 09/14/2021 Active take 2 tablets by mo [facility] every eight hours acetaminophen (TYLENOL) 325 [...] Start: 11-01-2021 take 1 capsule by mo [facility] once daily tamsulosin (FLOMAX) 0.4 MG capsule [...] Active docusate sodium 50 mg / sennosides, longterm 8.6 mg oral tablet (1 source) Start: [...] Units subcutaneously with meals and at bedtime. [place] Panax Ginseng 100 MG CAPS (8 sources) [place] Panax Ginseng 100 MG CAPS Quantity: 0 Refills: 0 Ordered: 06-Nov-2019 DO Active [place] Panax Ginseng 100 MG Oral Capsule (4 sources) [place] Panax Ginseng 100 MG Oral Capsule Refills: 0 Active [place] Panax Gin mayuri 100 MG Oral Capsule Refills: 0 DO Active [place] Panax Ginseng 100 MG Oral Capsule (2 sources) [place] Panax Gin mayuri 100 MG Oral Capsule [...] (1 source) Opioid Agonist Star t: 08-05 22 take 5-10 mg by mouth every six [...] Take 1 tablet by joan once daily. Pentoxifylline (1 source) Blood Viscosity Tree Chipper PENTOXIFYLLINE ORAL Take by mouth. 0 Active Comment on above: Take by mouth. petrolatum 0.41 mg/mg topical ointment (1 source) Start : 08-20 white petrolatum (AQUAPHOR) 41 % topical ointment Apply to affected area once daily. 0 08/20/2021 Active Comment on above: Apply to affected ar ea once daily. 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] Coag (PPP) [Relative time] 2.4 {INR} [facility] Comment on above: Order Comment: 411.1 Performed By: #### L 300.3900 ####[facility] [address] [place], [place], [address] PT Coag (PPP) [Time] 26.7 s High 11.7-14.9 [facility] Comment on above: Order Comment: 411.1 Performed By: #### L 300.3900 ####[facility] [address] [place], [address] Prothrombin Time w/INRon INR Coag (PPP) [Relative time] 2.3 {INR} Normal [facility] Comment on above: Order Comment: 411.1 Performed By: #### L 300.3900 ####[facility] [address] [place], [address] PT Coag (PPP) [Time] 25.7 s High 11.7-14.9 [facility] Comment on above: Order Comment: 411.1 Performed By: #### L 300.3900 ####[facility] [address] [place], [address] Prothrombin Time w/INRon INR Coag (PPP) [Relative time] 2.2 {INR} Normal [facility] Comment on above: Order Comment: 411-1 Performed By: #### L 300.3900 ####[facility] [address] [place], [address] PT Coag (PPP) [Time] 24.7 s High 11.7-14.9 [facility] Comment on above: Order Comment: 411-1 Performed By: #### L 300.3900 ####[facility] [address] [place], [address] Prothrombin Time w/INRon INR Coag (PPP) [Relative time] 2.2 {INR} Normal [facility] Comment on above: Order Comment: 411.1 Performed By: #### L 300.3900 ####[facility] [address] [place], [address] PT Coag (PPP) [Time] 25.0 s High 11.7-14.9 [facility] Comment on above: Order Comment: 411.1 Performed By: #### L 300.3900 ####[facility] [address] [place], [address] Prothrombin Time w/INRon INR Coag (PPP) [Relative time] 2.3 {INR} [facility] Comment on above: Order Comment: 411.1 Performed By: #### L 300.3900 ####[facility] [address] [place], [address] PT Coag (PPP) [Time] 25.9 s High 11.7-14.9 [facility] Comment on above: Order Comment: 411.1 Performed By: #### L 300.3900 ####[facility] [address] [place], [address] Prothrombin Time w/INRon INR Coag (PPP) [Relative time] 2.5 {INR} Normal [facility] Comment on above: Order Comment: 411.1 Performed By: #### L 300.3900 ####[facility] [address] [place], [address] PT Coag (PPP) [Time] 27.3 s High 11.7-14.9 [facility] Comment on above: Order Comment: 411.1 Performed By: #### L 300.3900 ####[facility] [address] [place], [address] Prothrombin Time w/INRon INR Coag (PPP) [Relative time] 2.3 {INR} [facility] Comment on above: Order Comment: 411-1 Performed By: #### L 300.3900 ####[facility] [address] [place], [address] PT Coag (PPP) [Time] 26.0 s High 11.7-14.9 [facility] Comment on above: Order Comment: 411-1 Performed By: #### L 300.3900 ####[facility] [address] [place], [address] Prothrombin Time w/INRon 07 25-2025 INR Coag (PPP) [Relative time] 3.1 {INR} [facility] Comment on above: Order Comment: 411-1 Performed By: #### L 300.3900 ####[facility] [address] [place], [address] PT Coag (PPP) [Time] 32.8 s High 11.7-14.9 [facility] Comment on above: Order Comment: 411-1 Performed By: #### L 300.3900 ####[facility] [address] [place], [address] Prothrombin Time w/INRon INR Coag (PPP) [Relative time] 3.3 {INR} [facility] Comment on above: Order Comment: 411.1 Performed By: #### L 300.3900 ####[facility] [address] [place], [address] PT Coag (PPP) [Time] 34.3 s High 11.7-14.9 [facility] Comment on above: Order Comment: 411.1 Performed By: #### L 300.3900 ####[facility] [address] [place], [address] Prothrombin Time w/INRon INR Coag (PPP) [Relative time] 2.8 {INR} [facility] Comment on above: Order Comment: 411.2 Performed By: #### L 300.3900 ####[facility] [address] [place], [address] PT Coag (PPP) [Time] 30.0 s High 11.7-14.9 [facility] Comment on above: Order Comment: 411.2 Performed By: #### L 300.3900 ####[facility] [address] [place], [address] Prothrombin Time w/INRon INR Coag (PPP) [Relative time] 3.0 {INR} [facility] Comment on above: Order Comment: 411.2 Performed By: #### L 300.3900 ####[facility] [address] [place], [address] PT Coag (PPP) [Time] 32.0 s High 11.7-14.9 [facility] Comment on above: Order Comment: 411.2 Performed By: #### L 300.3900 ####[facility] [address] [place], [address] Prothrombin Time w/INRon INR Coag (PPP) [Relative time] 2.9 {INR} [facility] Comment on above: Order Comment: 411.2 Performed By: #### L 300.3900 ####[facility] [address] [place], [address] PT Coag (PPP) [Time] 30.7 s High 11.7-14.9 [facility] Comment on above: Order Comment: 411.2 Performed By: #### L 300.3900 ####[facility] [address] [place], [address] Prothrombin Time w/INRon INR Coag (PPP) [Relative time] 2.2 {INR} [facility] Comment on above: Order Comment: 411.2 Performed By: #### L 300.3900 ####[facility] [address] [place], [address] PT Coag (PPP) [Time] 24.7 s High 11.7-14.9 [facility] Comment on above: Order Comment: 411.2 Performed By: #### L 300.3900 ####[facility] [address] [place], [address] Prothrombin Time w/INRon INR Coag (PPP) [Relative time] 2.6 {INR} [facility] Comment on above: Order Comment: 411.2 Performed By: #### L 300.3900 ####[facility] [address] [place], [address] PT Coag (PPP) [Time] 28.7 s High 11.7-14.9 [facility] Comment on above: Order Comment: 411.2 Performed By: #### L 300.3900 ####[facility] [address] [place], [address] Prothrombin Time w/INRon INR Coag (PPP) [Relative time] 3.1 {INR} [facility] Comment on above: Order Comment: 411.2 Performed By: #### L 300.3900 ####[facility] [address] [place], [address] PT Coag (PPP) [Time] 33.0 s High 11.7-14.9 [facility] Comment on above: Order Comment: 411.2 Performed By: #### L 300.3900 ####[facility] [address] [place], [address] Prothrombin Time w/INRon INR Coag (PPP) [Relative time] 3.0 {INR} [facility] Comment on above: Order Comment: 411-2 Performed By: #### L 300.3900 ####[facility] [address] [place], [address] PT Coag (PPP) [Time] 31.4 s High 11.7-14.9 [facility] Comment on above: Order Comment: 411-2 Performed By: #### L 300.3900 ####[facility] [address] [place], [address] International normalized rat io (INR) calculationOrdered By: Karon Corrales on 10-30-2024 INR Coag (Bld) [Relative time] 2.4 {INR} [facility] Prothrombin Time w/INRon INR Coag (PPP) [Relative time] 2.4 {INR} [facility] Comment on above: Performed By: #### L 300.3900 ####[facility] [address] [place], [place], [phone] PT Coag (PPP) [Time] 26.3 s High 11.7-14.9 [facility] Comment on above: Performed By: #### L 300.3900 ####[facility] [address] [place], [place], [phone]) Prothrombin timeOrdered By: Karon Corrales on 10-30-2024 PT Coag (PPP) [Time] 26.3 s High 11.7-14.9 [facility] International normalized rat io (INR) calculationOrdered By: Karon Corrales on 10-27-2024 INR Coag (Bld) [Relative time] 2.2 {INR} [facility] Prothrombin Time w/INRon INR Coag (PPP) [Relative time] 2.2 {INR} [facility] Comment on above: Order Comment: 411.2 Performed By: #### L 300.3900 ####[facility] [address] [place], [place], [address] Prothrombin timeOrdered By: Karon Corrales on 10-27-2024 PT Coag (PPP) [Time] 24.5 s High 11.7-14.9 [facility] Comment on above: Order Comment: 411.2 Performed By: #### L 300.3900 ####[facility] [address] [place], [place], [phone]) International normalized rat io (INR) calculationOrdered By: Karon Corrales on 10-23-2024 INR Coag (Bld) [Relative time] 2.5 {INR} [facility] Prothrombin Time w/INRon INR Coag (PPP) [Relative time] 2.5 {INR} [facility] Comment on above: Order Comment: 411.2 Performed By: #### L 300.3900 ####[facility] [address] [place], [place], [phone] PT Coag (PPP) [Time] 27.9 s High 11.7-14.9 [facility] Comment on above: Order Comment: 411.2 Performed By: #### L 300.3900 ####[facility] [address] [place], [place], [phone] Prothrombin timeOrdered By: Karon Corrales on 10-23-2024 PT Coag (PPP) [Time] 27.9 s High 11.7-14.9 [facility] International normalized rat io (INR) calculationOrdered By: Karon Corrales on 10-20-2024 INR Coag (Bld) [Relative time] 3.1 {INR} [facility] Prothrombin Time w/INRon INR Coag (PPP) [Relative time] 3.1 {INR} [facility] Comment on above: Order Comment: 411.2 Performed By: #### L 300.3900 ####[facility] [address] [place], [address] PT Coag (PPP) [Time] 32.8 s High 11.7-14.9 [facility] Comment on above: Order Comment: 411.2 Performed By: #### L 300.3900 ####[facility] [address] [place], [place], [phone] Prothrombin timeOrdered By: Karon Corrales on 10-20-2024 PT Coag (PPP) [Time] 32.8 s High 11.7-14.9 [facility] International normalized rat io (INR) calculationOrdered By: Karon Corrales on 10-16-2024 INR Coag (Bld) [Relative time] 2.8 {INR} [facility] Prothrombin Time w/INRon INR Coag (PPP) [Relative time] 2.8 {INR} [facility] Comment on above: Order Comment: 411.2 Performed By: #### L 300.3900 ####[facility] [address], [address] PT Coag (PPP) [Time] 30.4 s High 11.7-14.9 [facility] Comment on above: Order Comment: 411.2 Performed By: #### L 300.3900 ####[facility] [address], [address] Prothrombin timeOrdered By: Karon Corrales on 10-16-2024 PT Coag (PPP) [Time] 30.4 s High 11.7-14.9 [facility] International normalized rat io (INR) calculationOrdered By: Carlos Cavazos on 10-13-2024 INR Coag (Bld) [Relative time] 1.9 {INR} [facility] Prothrombin Time w/INRon INR Coag (PPP) [Relative time] 1.9 {INR} [facility] Comment on above: Order Comment: 411-2 Performed By: #### L 300.3900 ####[facility] [address] [place], [address] PT Coag (PPP) [Time] 22.4 s High 11.7-14.9 [facility] Comment on above: Order Comment: 411-2 Performed By: #### L 300.3900 ####[facility] [address] [place], [address] Prothrombin timeOrdered By: Carlos Cavazos on 10-13-2024 PT Coag (PPP) [Time] 22.4 s High 11.7-14.[address] [facility] International normalized rat io (INR) calculationOrdered By: Karon Corrales on 10-09-2024 INR Coag (Bld) [Relative time] 3.0 {INR} [facility] Prothrombin Time w/INRon INR Coag (PPP) [Relative time] 3.0 {INR} [facility] Comment on above: Order Comment: 411.2 Performed By: #### L 300.3900 ####[facility] [address] [place], [place], [phone] Prothrombin timeOrdered By: Karon Corrales on 10-09-2024 PT Coag (PPP) [Time] 31.8 s High 11.7-14.9 [facility] Comment on above: Order Comment: 411.2 Performed By: #### L 300.3900 ####[facility] [address] [place], [place], [phone] International normalized rat io (INR) calculationOrdered By: Carlos Cavazos on 10-06-2024 INR Coag (Bld) [Relative time] 2.7 {INR} [facility] Prothrombin Time w/INRon INR Coag (PPP) [Relative time] 2.7 {INR} [facility] Comment on above: Order Comment: 411-2 Performed By: #### L 300.3900 ####[facility] [address] [place], [place], [address] PT Coag (PPP) [Time] 29.6 s High 11.7-14.9 [facility] Comment on above: Order Comment: 411-2 Performed By: #### L 300.3900 ####[facility] [address] [place], [place], [phone] Prothrombin timeOrdered By: Carlos Cavazos on 10-06-2024 PT Coag (PPP) [Time] 29.6 s High 11.7-14.9 [facility] International normalized rat io (INR) calculationOrdered By: Karon Corrales on 10-02-2024 INR Coag (Bld) [Relative time] 2.3 {INR} [facility] Prothrombin Time w/INRon INR Coag (PPP) [Relative time] 2.3 {INR} [facility] Comment on above: Order Comment: 411.2 Performed By: #### L 300.3900 ####[facility] [address] [place], [place], [phone] PT Coag (PPP) [Time] 26.0 s High 11.7-14.9 [facility] Comment on above: Order Comment: 411.2 Performed By: #### L 300.3900 ####[facility] [address] [place], [place], [phone] Prothrombin timeOrdered By: Karon Corrales on 10-02-2024 PT Coag (PPP) [Time] 26.0 s High 11.7-14.9 [facility] International normalized rat io (INR) calculationOrdered By: Karon Corrales on 09-30-2024 INR Coag (Bld) [Relative time] 3.1 {INR} [facility] Prothrombin Time w/INRon INR Coag (PPP) [Relative time] 3.1 {INR} Normal [facility] Comment on above: Order Comment: 411.2 Performed By: #### L 300.3900 ####[facility] [address], [address] PT Coag (PPP) [Time] 32.6 s High 11.7-14.9 [facility] Comment on above: Order Comment: 411.2 Performed By: #### L 300.3900 ####[facility] [address] [place], [place], [phone] Prothrombin timeOrdered By: Karon Corrales on 09-30-2024 PT Coag (PPP) [Time] 32.6 s High 11.7-14.9 [facility] International normalized rat io (INR) calculationOrdered By: Karon Corrales on 09-25-2024 INR Coag (Bld) [Relative time] 2.4 {INR} [facility] Prothrombin Time w/INRon INR Coag (PPP) [Relative time] 2.4 {INR} Normal [facility] Comment on above: Order Comment: 411.2 Performed By: #### L 300.3900 ####[facility] [address] [place], [place], [phone] Prothrombin timeOrdered By: Karon Corrales on 09-25-2024 PT Coag (PPP) [Time] 26.7 s High 11.7-14.9 [facility] Comment on above: Order Comment: 411.2 Performed By: #### L 300.3900 ####[facility] [address] [place], [place], [phone] International normalized rat io (INR) calculationOrdered By: Karon Corrales on 09-22-2024 INR Coag (Bld) [Relative time] 2.5 {INR} [facility] Prothrombin Time w/INRon INR Coag (PPP) [Relative time] 2.5 {INR} Normal [facility] Comment on above: Order Comment: 411.2 Performed By: #### L 300.3900 ####[facility] [address] [place], [place], [phone] Prothrombin timeOrdered By: Karon Corrales on 09-22-2024 PT Coag (PPP) [Time] 27.4 s High 11.7-14.9 [facility] Comment on above: Order Comment: 411.2 Performed By: #### L 300.3900 ####[facility] [address] [place], [address] International normalized rat io (INR) calculationOrdered By: Karon Corrales on 09-18-2024 INR Coag (Bld) [Relative time] 2.2 {INR} [facility] Prothrombin Time w/INRon INR Coag (PPP) [Relative time] 2.2 {INR} Normal [facility] Comment on above: Order Comment: 411.2 Performed By: #### L 300.3900 ####[facility] [address] [place], [place], [phone] PT Coag (PPP) [Time] 25.1 s High 11.7-14.9 [facility] Comment on above: Order Comment: 411.2 Performed By: #### L 300.3900 ####[facility] [address] [place], [place], [phone] Prothrombin timeOrdered By: Karon Corrales on 09-18-2024 PT Coag (PPP) [Time] 25.1 s High 11.7-14.9 [facility] International normalized rat io (INR) calculationOrdered By: Carlos Cavazos on 09-15-2024 INR Coag (Bld) [Relative time] 2.4 {INR} [facility] Prothrombin Time w/INRon INR Coag (PPP) [Relative time] 2.4 {INR} Normal [facility] Comment on above: Order Comment: 411-2 Performed By: #### L 300.3900 ####[facility] [address] [place], [place], [phone] Prothrombin timeOrdered By: Carlos Cavazos on 09-15-2024 PT Coag (PPP) [Time] 26.3 s High 11.7-14.9 [facility] Comment on above: Order Comment: 411-2 Performed By: #### L 300.3900 ####[facility] [address] [place], [place], [phone] International normalized rat io (INR) calculationOrdered By: Karon Corrales on 09-11-2024 INR Coag (Bld) [Relative time] 2.0 {INR} [facility] Prothrombin Time w/INRon INR Coag (PPP) [Relative time] 2.0 {INR} Normal [facility] Comment on above: Order Comment: 411.2 Performed By: #### L 300.3900 ####[facility] [address] [place], [place], [phone]) PT Coag (PPP) [Time] 22.9 s High 11.7-14.9 [facility] Comment on above: Order Comment: 411.2 Performed By: #### L 300.3900 ####[facility] [address] [place], [place], [phone](264) Prothrombin timeOrdered By: Karon Corrales on 09-11-2024 PT Coag (PPP) [Time] 22.9 s High 11.7-14.9 [facility] International normalized rat io (INR) calculationOrdered By: Karon Corrales on 09-08-2024 INR Coag (Bld) [Relative time] 2.0 {INR} [facility] Prothrombin Time w/INRon INR Coag (PPP) [Relative time] 2.0 {INR} Normal [facility] Comment on above: Order Comment: 411.2 Performed By: #### L 300.3900 ####[facility] [address] [place], [place], [phone](619) PT Coag (PPP) [Time] 22.8 s High 11.7-14.9 [facility] Comment on above: Order Comment: 411.2 Performed By: #### L 300.3900 ####[facility] [address] [place], [place], [phone](990) Prothrombin timeOrdered By: Karon Corrales on 09-08-2024 PT Coag (PPP) [Time] 22.8 s High 11.7-14.9 [facility] International normalized rat io (INR) calculationOrdered By: Carlos Cavazos on 09-04-2024 INR Coag (Bld) [Relative time] 1.7 {INR} [facility] Prothrombin Time w/INRon INR Coag (PPP) [Relative time] 1.7 {INR} Normal [facility] Comment on above: Order Comment: 411-2 Performed By: #### L 300.3900 ####[facility] [address] [place], [place], [phone]68) PT Coag (PPP) [Time] 20.8 s High 11.7-14.9 [facility] Comment on above: Order Comment: 411-2 Performed By: #### L 300.3900 ####[facility] [address] [place], [place], [phone]([phone] Prothrombin timeOrdered By: Carlos Cavazos on 09-04-2024 PT Coag (PPP) [Time] 20.8 s High 11.7-14.9 [facility] International normalized rat io (INR) calculationOrdered By: Carlos Cavazos on 09-01-2024 INR Coag (Bld) [Relative time] 2.9 {INR} [facility] Prothrombin Time w/INRon INR Coag (PPP) [Relative time] 2.9 {INR} Normal [facility] Comment on above: Order Comment: 411-2 Performed By: #### L 300.3900 ####[facility] [address] [place], [place], [phone] PT Coag (PPP) [Time] 30.7 s High 11.7-14.9 [facility] Comment on above: Order Comment: 411-2 Performed By: #### L 300.3900 ####[facility] [address] [place], [place], [phone] Prothrombin timeOrdered By: Carlos Cavazos on 09-01-2024 PT Coag (PPP) [Time] 30.7 s High 11.7-14.9 [facility] International normalized rat io (INR) calculationOrdered By: Carlos Cavazos on 08-28-2024 INR Coag (Bld) [Relative time] 2.4 {INR} [facility] Prothrombin Time w/INRon INR Coag (PPP) [Relative time] 2.4 {INR} Normal [facility] Comment on above: Order Comment: 411-2 Performed By: #### L 300.3900 ####[facility] [address] [place], [address] Prothrombin timeOrdered By: Carlos Cavazos on 08-28-2024 PT Coag (PPP) [Time] 26.7 s High 11.7-14.9 [facility] Comment on above: Order Comment: 411-2 Performed By: #### L 300.3900 ####[facility] [address] [place], [place], [phone] International normalized rat io (INR) calculationOrdered By: Karon Corrales on 08-25-2024 INR Coag (Bld) [Relative time] 1.8 {INR} [facility] Prothrombin Time w/INRon INR Coag (PPP) [Relative time] 1.8 {INR} Normal [facility] Comment on above: Order Comment: 411.2 Performed By: #### L 300.3900 ####[facility] [address] [place], [place], [phone] PT Coag (PPP) [Time] 21.6 s High 11.7-14.9 [facility] Comment on above: Order Comment: 411.2 Performed By: #### L 300.3900 ####[facility] [address] [place], [place], [phone] Prothrombin timeOrdered By: Karon Corrales on 08-25-2024 PT Coag (PPP) [Time] 21.6 s High 11.7-14.9 [facility] International normalized rat io (INR) calculationOrdered By: Karon Corrales on 08-21-2024 INR Coag (Bld) [Relative time] 1.7 {INR} [facility] PSA, total screeningOrdered By: Karon Corrales on 08-21-2024 Prostate Specific Antigen Screen 0.52 ng/mL 0.02-4.00 [facility] Comment on above: This test was perfor med using the [employer] tPSA method. Measured values of a patient sample can vary depending on the testing procedure used. PSA values determined on patient samples by different testing procedures cannot be used interchangeably. If there is a change in PSA assays while monitoring therapy, sequential testing should be performed to confirm baseline values. PSA,Total - Annual Screenon 08-21-2024 PSA,TOT SCREEN 0.52 ng/mL Normal 0.02-4.00 [facility] Comment on above: Order Comment: [...] values. Performed By: #### L 501.9910, L300.3900 ####[facility] [address], [address] Prothrombin Time w/INRon INR Coag (PPP) [Relative time] 1.7 {INR} Normal [facility] Comment on above: Order Comment: 411.2 Performed By: #### L 501.9910, L300.3900 ####[facility] [address] [place], [address] Prothrombin timeOrdered By: Karon Corrales on 08-21-2024 PT Coag (PPP) [Time] 20.1 s High 11.7-14.9 [facility] Comment on above: Order Comment: 411.2 Performed By: #### L 501.9910, L300.3900 ####[facility] [address], [address] International normalized rat io (INR) calculationOrdered By: Karon Corrales on 08-18-2024 INR Coag (Bld) [Relative time] 3.0 {INR} [facility] Prothrombin Time w/INRon INR Coag (PPP) [Relative time] 3.0 {INR} Normal [facility] Comment on above: Order Comment: 411.2 Performed By: #### L 300.3900 ####[facility] [address] [place], [address] PT Coag (PPP) [Time] 31.4 s High 11.7-14.9 [facility] Comment on above: Order Comment: 411.2 Performed By: #### L 300.3900 ####[facility] [address] [place], [address] Prothrombin timeOrdered By: Karon Corrales on 08-18-2024 PT Coag (PPP) [Time] 31.4 s High 11.7-14.9 [facility] International normalized rat io (INR) calculationOrdered By: Karon Corrales on 08-14-2024 INR Coag (Bld) [Relative time] 2.4 {INR} [facility] Prothrombin Time w/INRon INR Coag (PPP) [Relative time] 2.4 {INR} Normal [facility] Comment on above: Order Comment: 411.2 Performed By: #### L 300.3900 ####[facility] [address] [place], [address] PT Coag (PPP) [Time] 26.6 s High 11.7-14.9 [facility] Comment on above: Order Comment: 411.2 Performed By: #### L 300.3900 ####[facility] [address] [place], [place], [phone] Prothrombin timeOrdered By: Karon Corrales on 08-14-2024 PT Coag (PPP) [Time] 26.6 s High 11.7-14.9 [facility] International normalized rat io (INR) calculationOrdered By: Karon Corrales on 08-11-2024 INR Coag (Bld) [Relative time] 3.1 {INR} [facility] Prothrombin Time w/INRon INR Coag (PPP) [Relative time] 3.1 {INR} Normal [facility] Comment on above: Order Comment: 411.2 Performed By: #### L 300.3900 ####[facility] [address] [place], [place], [phone](495) PT Coag (PPP) [Time] 32.4 s High 11.7-14.9 [facility] Comment on above: Order Comment: 411.2 Performed By: #### L 300.3900 ####[facility] [address] [place], [place], [phone] Prothrombin timeOrdered By: Karon Corrales on 08-11-2024 PT Coag (PPP) [Time] 32.4 s High 11.7-14.9 [facility] International normalized rat io (INR) calculationOrdered By: Carlos Cavazos on 08-07-2024 INR Coag (Bld) [Relative time] 2.8 {INR} [facility] Prothrombin Time w/INRon INR Coag (PPP) [Relative time] 2.8 {INR} Normal [facility] Comment on above: Order Comment: 411-2 Performed By: #### L 300.3900 ####[facility] [address] [place], [place], [phone](437) PT Coag (PPP) [Time] 30.3 s High 11.7-14.9 [facility] Comment on above: Order Comment: 411-2 Performed By: #### L 300.3900 ####[facility] [address] [place], [place], [phone](999) Prothrombin timeOrdered By: Carlos Cavazos on 08-07-2024 PT Coag (PPP) [Time] 30.3 s High 11.7-14.9 [facility] International normalized rat io (INR) calculationOrdered By: Carlos Cavazos on 08-04-2024 INR Coag (Bld) [Relative time] 1.9 {INR} [facility] Prothrombin Time w/INRon INR Coag (PPP) [Relative time] 1.9 {INR} Normal [facility] Comment on above: Order Comment: 411-2 Performed By: #### L 300.3900 ####[facility] [address] [place], [address] PT Coag (PPP) [Time] 22.1 s High 11.7-14.9 [facility] Comment on above: Order Comment: 411-2 Performed By: #### L 300.3900 ####[facility] [address] [place], [address] Prothrombin timeOrdered By: Carlos Cavazos on 08-04-2024 PT Coag (PPP) [Time] 22.1 s High 11.7-14.9 [facility] International normalized rat io (INR) calculationOrdered By: Karon Corrales on 07-31-2024 INR Coag (Bld) [Relative time] 3.2 {INR} [facility] Prothrombin Time w/INRon INR Coag (PPP) [Relative time] 3.2 {INR} Normal [facility] Comment on above: Order Comment: 411.2 Performed By: #### L 300.3900 ####[facility] [address] [place], [address] PT Coag (PPP) [Time] 33.5 s High 11.7-14.9 [facility] Comment on above: Order Comment: 411.2 Performed By: #### L 300.3900 ####[facility] [address] [place], [address] Prothrombin timeOrdered By: Karon Corrales on 07-31-2024 PT Coag (PPP) [Time] 33.5 s High 11.7-14.9 [facility] International normalized rat io (INR) calculationOrdered By: Karon Corrales on 07-28-2024 INR Coag (Bld) [Relative time] 2.7 {INR} [facility] Prothrombin Time w/INRon INR Coag (PPP) [Relative time] 2.7 {INR} Normal [facility] Comment on above: Order Comment: 411.2 Performed By: #### L 300.3900 ####[facility] [address] [place], [address] PT Coag (PPP) [Time] 29.6 s High 11.7-14.9 [facility] Comment on above: Order Comment: 411.2 Performed By: #### L 300.3900 ####[facility] [address] [place], [place], [phone] Prothrombin timeOrdered By: Karon Corrales on 07-28-2024 PT Coag (PPP) [Time] 29.6 s High 11.7-14.9 [facility] International normalized rat io (INR) calculationOrdered By: Carlos Cavazos on 07-25-2024 INR Coag (Bld) [Relative time] 3.0 {INR} [facility] Prothrombin Time w/INRon INR Coag (PPP) [Relative time] 3.0 {INR} Normal [facility] Comment on above: Order Comment: 411-2 Performed By: #### L 300.3900 ####[facility] [address] [place], [address] Prothrombin timeOrdered By: Carlos Cavazos on 07-25-2024 PT Coag (PPP) [Time] 32.1 s High 11.7-14.9 [facility] Comment on above: Order Comment: 411-2 Performed By: #### L 300.3900 ####[facility] [address] [place], [place], [phone] International normalized rat io (INR) calculationOrdered By: Karon Corrales on 07-24-2024 INR Coag (Bld) [Relative time] 3.4 {INR} [facility] Prothrombin Time w/INRon INR Coag (PPP) [Relative time] 3.4 {INR} Normal [facility] Comment on above: Order Comment: 411.2 Performed By: #### L 300.3900 ####[facility] [address] [place], [address] Prothrombin timeOrdered By: Karon Corrales on 07-24-2024 PT Coag (PPP) [Time] 35.4 s High 11.7-14.9 [facility] Comment on above: Order Comment: 411.2 Performed By: #### L 300.3900 ####[facility] [address] [place], [place], [phone] International normalized rat io (INR) calculationOrdered By: Karon Corrales on 07-21-2024 INR Coag (Bld) [Relative time] 1.6 {INR} [facility] Prothrombin Time w/INRon INR Coag (PPP) [Relative time] 1.6 {INR} Normal [facility] Comment on above: Order Comment: 411.2 Performed By: #### L 300.3900 ####[facility] [address] [place], [place], [phone] PT Coag (PPP) [Time] 19.6 s High 11.7-14.9 [facility] Comment on above: Order Comment: 411.2 Performed By: #### L 300.3900 ####[facility] [address] [place], [address](460) Prothrombin timeOrdered By: Karon Corrales on 07-21-2024 PT Coag (PPP) [Time] 19.6 s High 11.7-14.9 [facility] International normalized rat io (INR) calculationOrdered By: Karon Corrales on 07-17-2024 INR Coag (Bld) [Relative time] 2.9 {INR} [facility] Prothrombin Time w/INRon INR Coag (PPP) [Relative time] 2.9 {INR} Normal [facility] Comment on above: Order Comment: 411.2 Performed By: #### L 300.3900 ####[facility] [address] [place], [place], [phone](572) PT Coag (PPP) [Time] 31.1 s High 11.7-14.9 [facility] Comment on above: Order Comment: 411.2 Performed By: #### L 300.3900 ####[facility] [address] [place], [place], [phone](145) Prothrombin timeOrdered By: Karon Corrales on 07-17-2024 PT Coag (PPP) [Time] 31.1 s High 11.7-14.9 [facility] International normalized rat io (INR) calculationOrdered By: Carlos Cavazos on 07-14-2024 INR Coag (Bld) [Relative time] 2.5 {INR} [facility] Prothrombin Time w/INRon INR Coag (PPP) [Relative time] 2.5 {INR} Normal [facility] Comment on above: Order Comment: 411-2 Performed By: #### L 300.3900 ####[facility] [address] [place], [place], [phone](242) PT Coag (PPP) [Time] 27.5 s High 11.7-14.9 [facility] Comment on above: Order Comment: 411-2 Performed By: #### L 300.3900 ####[facility] [address] [place], [place], [phone](087) Prothrombin timeOrdered By: Carlos Cavazos on 07-14-2024 PT Coag (PPP) [Time] 27.5 s High 11.7-14.9 [facility] International normalized rat io (INR) calculationOrdered By: Carlos Cavazos on 07-11-2024 INR Coag (Bld) [Relative time] 2.5 {INR} [facility] Prothrombin Time w/INRon INR Coag (PPP) [Relative time] 2.5 {INR} Normal [facility] Comment on above: Performed By: #### L 300.3900 ####[facility] [address] [place], [place], [phone](675) PT Coag (PPP) [Time] 27.7 s High 11.7-14.9 [facility] Comment on above: Performed By: #### L 300.3900 ####[facility] [address] [place], [address] Prothrombin timeOrdered By: Carlos Cavazos on 07-11-2024 PT Coag (PPP) [Time] 27.7 s High 11.7-14.9 [facility] Prothrombin Time w/INRon INR Normal [facility] Comment on above: Order Comment: 411.2 Result Comment: QNS TUBE NOT FILLED Performed By: #### L 300.3900 ####[facility] [address] [place], [address] PROTIME Normal 11.7-14.9 [facility] Comment on above: Order Comment: 411.2 Result Comment: QNS TUBE NOT FILLED Performed By: #### L 300.3900 ####[facility] [address] [place], [address] International normalized rat io (INR) calculationOrdered By: Kvng Crisostomo on 07-07-2024 INR Coag (Bld) [Relative time] 2.5 {INR} [facility] Prothrombin Time w/INRon INR Coag (PPP) [Relative time] 2.5 {INR} Normal [facility] Comment on above: Order Comment: 411.2 Performed By: #### L 300.3900 ####[facility] [address] [place], [address] PT Coag (PPP) [Time] 27.2 s High 11.7-14.9 [facility] Comment on above: Order Comment: 411.2 Performed By: #### L 300.3900 ####[facility] [address] [place], [address] Prothrombin timeOrdered By: Babbaljeet Crisostomo on 07-07-2024 PT Coag (PPP) [Time] 27.2 s High 11.7-14.9 [facility] International normalized rat io (INR) calculationOrdered By: Babbaljeet Crisostomo on 07-03-2024 INR Coag (Bld) [Relative time] 2.5 {INR} [facility] Prothrombin Time w/INRon INR Coag (PPP) [Relative time] 2.5 {INR} Normal [facility] Comment on above: Order Comment: 411.2 Performed By: #### L 300.3900 ####[facility] [address] [place], [address] PT Coag (PPP) [Time] 27.2 s High 11.7-14.9 [facility] Comment on above: Order Comment: 411.2 Performed By: #### L 300.3900 ####[facility] [address] [place], [address] Prothrombin timeOrdered By: Babbaljeet Crisostomo on 07-03-2024 PT Coag (PPP) [Time] 27.2 s High 11.7-14.9 [facility] International normalized rat io (INR) calculationOrdered By: Babbaljeet Crisostomo on 06-30-2024 INR Coag (Bld) [Relative time] 2.4 {INR} [facility] Prothrombin Time w/INRon INR Coag (PPP) [Relative time] 2.4 {INR} Normal [facility] Comment on above: Order Comment: 411.2 Performed By: #### L 300.3900 ####[facility] [address] [place], [address] PT Coag (PPP) [Time] 26.8 s High 11.7-14.9 [facility] Comment on above: Order Comment: 411.2 Performed By: #### L 300.3900 ####[facility] [address] [place], [address] Prothrombin timeOrdered By: Kvng Crisostomo on 06-30-2024 PT Coag (PPP) [Time] 26.8 s High 11.7-14.9 [facility] International normalized rat io (INR) calculationOrdered By: Kvng Crisostomo on 06-26-2024 INR Coag (Bld) [Relative time] 2.5 {INR} [facility] Prothrombin Time w/INRon INR Coag (PPP) [Relative time] 2.5 {INR} Normal [facility] Comment on above: Order Comment: 411.2 Performed By: #### L 300.3900 ####[facility] [address] [place], [address] PT Coag (PPP) [Time] 27.5 s High 11.7-14.9 [facility] Comment on above: Order Comment: 411.2 Performed By: #### L 300.3900 ####[facility] [address] [place], [address] Prothrombin timeOrdered By: Kvng Crisostomo on 06-26-2024 PT Coag (PPP) [Time] 27.5 s High 11.7-14.9 [facility] International normalized rat io (INR) calculationOrdered By: Carlos Cavazos on 06-23-2024 INR Coag (Bld) [Relative time] 2.8 {INR} [facility] Prothrombin Time w/INRon INR Coag (PPP) [Relative time] 2.8 {INR} Normal [facility] Comment on above: Order Comment: 411-2 Performed By: #### L 300.3900 ####[facility] [address] [place], [address] PT Coag (PPP) [Time] 29.7 s High 11.7-14.9 [facility] Comment on above: Order Comment: 411-2 Performed By: #### L 300.3900 ####[facility] [address] [place], [address] Prothrombin timeOrdered By: Carlos Cavazos on 06-23-2024 PT Coag (PPP) [Time] 29.7 s High 11.7-14.9 [facility] International normalized rat io (INR) calculationOrdered By: Kvng Crisostomo on 06-19-2024 INR Coag (Bld) [Relative time] 2.6 {INR} [facility] Prothrombin Time w/INRon INR Coag (PPP) [Relative time] 2.6 {INR} Normal [facility] Comment on above: Order Comment: 411.2 Performed By: #### L 300.3900 ####[facility] [address] [place], [address] PT Coag (PPP) [Time] 28.6 s High 11.7-14.9 [facility] Comment on above: Order Comment: 411.2 Performed By: #### L 300.3900 ####[facility] [address] [place], [address] Prothrombin timeOrdered By: Kvng Crisostomo on 06-19-2024 PT Coag (PPP) [Time] 28.6 s High 11.7-14.9 [facility] International normalized rat io (INR) calculationOrdered By: Kvng Crisostomo on 06-16-2024 INR Coag (Bld) [Relative time] 2.5 {INR} [facility] Prothrombin Time w/INRon INR Coag (PPP) [Relative time] 2.5 {INR} Normal [facility] Comment on above: Order Comment: 411.2 Performed By: #### L 300.3900 ####[facility] [address] [place], [address] PT Coag (PPP) [Time] 27.3 s High 11.7-14.9 [facility] Comment on above: Order Comment: 411.2 Performed By: #### L 300.3900 ####[facility] [address] [place], [address] Prothrombin timeOrdered By: Kvng Crisostomo on 06-16-2024 PT Coag (PPP) [Time] 27.3 s High 11.7-14.9 [facility] normalized rat io (INR) calculationOrdered By: Kvng Crisostomo on 06-12-2024 INR Coag (Bld) [Relative time] 2.1 {INR} [facility] Prothrombin Time w/INRon INR Coag (PPP) [Relative time] 2.1 {INR} Normal [facility] Comment on above: Order Comment: 411.2 Performed By: #### L 300.3900 ####[facility] [address] [place], [address] PT Coag (PPP) [Time] 24.0 s High 11.7-14.9 [facility] Comment on above: Order Comment: 411.2 Performed By: #### L 300.3900 ####[facility] [address] [place], [address] Prothrombin timeOrdered By: Kvng Crisostomo on 06-12-2024 PT Coag (PPP) [Time] 24.0 s High 11.7-14.9 [facility] normalized rat io (INR) calculationOrdered By: Carlos Cavazos on 06-09-2024 INR Coag (Bld) [Relative time] 1.5 {INR} [facility] Prothrombin Time w/INRon INR Coag (PPP) [Relative time] 1.5 {INR} Normal [facility] Comment on above: Order Comment: 411-2 Performed By: #### L 300.3900 ####[facility] [address] [place], [address] PT Coag (PPP) [Time] 18.0 s High 11.7-14.9 [facility] Comment on above: Order Comment: 411-2 Performed By: #### L 300.3900 ####[facility] [address] [place], [address] Prothrombin timeOrdered By: Carlos Cavazos on 06-09-2024 PT Coag (PPP) [Time] 18.0 s High 11.7-14.9 [facility] normalized rat io (INR) calculationOrdered By: Kvng Crisostomo on 06-05-2024 INR Coag (Bld) [Relative time] 2.8 {INR} [facility] Prothrombin Time w/INRon INR Coag (PPP) [Relative time] 2.8 {INR} Normal [facility] Comment on above: Order Comment: 411.2 Performed By: #### L 300.3900 ####[facility] [address] [place], [address] PT Coag (PPP) [Time] 30.3 s High 11.7-14.9 [facility] Comment on above: Order Comment: 411.2 Performed By: #### L 300.3900 ####[facility] [address] [place], [address] Prothrombin timeOrdered By: Kvng Crisostomo on 06-05-2024 PT Coag (PPP) [Time] 30.3 s High 11.7-14.9 [facility] normalized rat io (INR) calculationOrdered By: Kvng Crisostomo on 06-02-2024 INR Coag (Bld) [Relative time] 2.6 {INR} [facility] Prothrombin Time w/INRon INR Coag (PPP) [Relative time] 2.6 {INR} Normal [facility] Comment on above: Order Comment: 411.2 Performed By: #### L 300.3900 ####[facility] [address] [place], [address] PT Coag (PPP) [Time] 28.6 s High 11.7-14.9 [facility] Comment on above: Order Comment: 411.2 Performed By: #### L 300.3900 ####[facility] [address] [place], [address] Prothrombin timeOrdered By: Kvng Crisostomo on 06-02-2024 PT Coag (PPP) [Time] 28.6 s High 11.7-14.9 [facility] normalized rat io (INR) calculationOrdered By: Kvng Crisostomo on 05-29-2024 INR Coag (Bld) [Relative time] 2.5 {INR} [facility] Prothrombin Time w/INRon INR Coag (PPP) [Relative time] 2.5 {INR} Normal [facility] Comment on above: Order Comment: 411.2 Performed By: #### L 300.3900 ####[facility] [address], [address] PT Coag (PPP) [Time] 27.7 s High 11.7-14.9 [facility] Comment on above: Order Comment: 411.2 Performed By: #### L 300.3900 ####[facility] [address] [place], [address] Prothrombin timeOrdered By: Kvng Crisostomo on 05-29-2024 PT Coag (PPP) [Time] 27.7 s High 11.7-14.9 [facility] normalized rat io (INR) calculationOrdered By: Carlos Cavazos on 05-26-2024 INR Coag (Bld) [Relative time] 2.2 {INR} [facility] Prothrombin Time w/INRon INR Coag (PPP) [Relative time] 2.2 {INR} Normal [facility] Comment on above: Order Comment: 411-2 Performed By: #### L 300.3900 ####[facility] [address] [facility] [address] PT Coag (PPP) [Time] 24.5 s High 11.7-14.9 [facility] Comment on above: Order Comment: 411-2 Performed By: #### L 300.3900 ####[facility] [address] [facility] [address] Prothrombin timeOrdered By: Carlos Cavazos on 05-26-2024 PT Coag (PPP) [Time] 24.5 s High 11.7-14.9 [facility] normalized rat io (INR) calculationOrdered By: Kvng Crisostomo on 05-22-2024 INR Coag (Bld) [Relative time] 2.8 {INR} [facility] Prothrombin Time w/INRon INR Coag (PPP) [Relative time] 2.8 {INR} Normal [facility] Comment on above: Order Comment: 411.2 Performed By: #### L 300.3900 ####[facility] [address], [address] PT Coag (PPP) [Time] 30.3 s High 11.7-14.9 [facility] Comment on above: Order Comment: 411.2 Performed By: #### L 300.3900 ####[facility] [address] [place], [address] Prothrombin timeOrdered By: Kvng Crisostomo on 05-22-2024 PT Coag (PPP) [Time] 30.3 s High 11.7-14.9 [facility] normalized rat io (INR) calculationOrdered By: Kvng Crisostomo on 05-20-2024 INR Coag (Bld) [Relative time] 4.0 {INR} High [facility] Comment on above: CRITICAL VALUE CASEY D TO [id number] [facility] Diana Bernalzano.RESULTS READ BACK BY SAME. Prothrombin Time w/INRon INR Coag (PPP) [Relative time] 4.0 {INR} Invalid Interpretation Code [facility] Comment on above: Order Comment: 411.2 Result Comment: CRIT ICAL VALUE CALLED TO [id number]/14/25 [facility] Diana Mattson.RESULTS READ BACK BY SAME. Performed By: #### L 300.3900 ####[facility] [address] [place], [place], [phone] PT Coag (PPP) [Time] 39.9 s High 11.7-14.9 [facility] Comment on above: Order Comment: 411.2 Performed By: #### L 300.3900 ####[facility] [address] [place], [place], [phone] Prothrombin timeOrdered By: Kvng Crisostomo on 05-20-2024 PT Coag (PPP) [Time] 39.9 s High 11.7-14.9 [facility] normalized rat io (INR) calculationOrdered By: Kvng Crisostomo on 05-19-2024 INR Coag (Bld) [Relative time] 3.4 {INR} [facility] Prothrombin Time w/INRon INR Coag (PPP) [Relative time] 3.4 {INR} Normal [facility] Comment on above: Order Comment: 411.2 Performed By: #### L 300.3900 ####[facility] [address] [place], [place], [phone] PT Coag (PPP) [Time] 35.4 s High 11.7-14.9 [facility] Comment on above: Order Comment: 411.2 Performed By: #### L 300.3900 ####[facility] [address] [place], [place], [phone] Prothrombin timeOrdered By: Kvng Crisostomo on 05-19-2024 PT Coag (PPP) [Time] 35.4 s High 11.7-14.9 [facility] normalized rat io (INR) calculationOrdered By: Kvng Crisostomo on 05-15-2024 INR Coag (Bld) [Relative time] 2.6 {INR} [facility] Prothrombin Time w/INRon INR Coag (PPP) [Relative time] 2.6 {INR} Normal [facility] Comment on above: Order Comment: 411.2 Performed By: #### L 300.3900 ####[facility] [address] [place], [address] PT Coag (PPP) [Time] 28.7 s High 11.7-14.9 [facility] Comment on above: Order Comment: 411.2 Performed By: #### L 300.3900 ####[facility] [address] [place], [place], [phone] Prothrombin timeOrdered By: Kvng Crisostomo on 05-15-2024 PT Coag (PPP) [Time] 28.7 s High 11.7-14.9 [facility] normalized rat io (INR) calculationOrdered By: Carlos Cavazos on 05-12-2024 INR Coag (Bld) [Relative time] 2.1 {INR} [facility] Prothrombin Time w/INRon INR Coag (PPP) [Relative time] 2.1 {INR} Normal [facility] Comment on above: Order Comment: 411-2 Performed By: #### L 300.3900 ####[facility] [address] [place], [address] PT Coag (PPP) [Time] 24.1 s High 11.7-14.9 [facility] Comment on above: Order Comment: 411-2 Performed By: #### L 300.3900 ####[facility] [address] [place], [place], [phone] Prothrombin timeOrdered By: Carlos Cavazos on 05-12-2024 PT Coag (PPP) [Time] 24.1 s High 11.7-14.9 [facility] normalized rat io (INR) calculationOrdered By: Kvng Crisostomo on 05-09-2024 INR Coag (Bld) [Relative time] 3.4 {INR} [facility] Prothrombin Time w/INRon INR Coag (PPP) [Relative time] 3.4 {INR} Normal [facility] Comment on above: Order Comment: 411.2 Performed By: #### L 300.3900 ####[facility] [address] [place], [place], [phone] PT Coag (PPP) [Time] 35.4 s High 11.7-14.9 [facility] Comment on above: Order Comment: 411.2 Performed By: #### L 300.3900 ####[facility] [address] [place], [place], [phone] Prothrombin timeOrdered By: Kvng Crisostomo on 05-09-2024 PT Coag (PPP) [Time] 35.4 s High 11.7-14.9 [facility] normalized rat io (INR) calculationOrdered By: Kvng Crisostomo on 05-08-2024 INR Coag (Bld) [Relative time] 4.1 {INR} High [facility] Comment on above: CRITICAL VALUE CASEY D TO [facility]05/08/24 0950 [place].RESULTS READ BACK BY SAME. Prothrombin Time w/INRon INR Coag (PPP) [Relative time] 4.1 {INR} Invalid Interpretation Code [facility] Comment on above: Order Comment: 411.2 Result Comment: CRIT ICAL VALUE CALLED TO [facility]05/08/24 0950 [place].RESULTS READ BACK BY SAME. Performed By: #### L 300.3900 ####[facility] [address] [place], [address] PT Coag (PPP) [Time] 40.8 s High 11.7-14.9 [facility] Comment on above: Order Comment: 411.2 Performed By: #### L 300.3900 ####[facility] [address] [place], [address] Prothrombin timeOrdered By: Kvng Crisostomo on 05-08-2024 PT Coag (PPP) [Time] 40.8 s High 11.7-14.9 [facility] normalized rat io (INR) calculationOrdered By: Kvng Crisostomo on 05-05-2024 INR Coag (Bld) [Relative time] 3.2 {INR} [facility] Prothrombin Time w/INRon INR Coag (PPP) [Relative time] 3.2 {INR} Normal [facility] Comment on above: Order Comment: 411.2 Performed By: #### L 300.3900 ####[facility] [address] [place], [address] PT Coag (PPP) [Time] 32.5 s High 11.7-14.9 [facility] Comment on above: Order Comment: 411.2 Performed By: #### L 300.3900 ####[facility] [address] [place], [address] Prothrombin timeOrdered By: Kvng Crisostomo on 05-05-2024 PT Coag (PPP) [Time] 32.5 s High 11.7-14.9 [facility] normalized rat io (INR) calculationOrdered By: Kvng Crisostomo on 05-01-2024 INR Coag (Bld) [Relative time] 3.1 {INR} [facility] Prothrombin Time w/INRon INR Coag (PPP) [Relative time] 3.1 {INR} Normal [facility] Comment on above: Order Comment: 411.2 Performed By: #### L 300.3900 ####[facility] [address] [place], [address] PT Coag (PPP) [Time] 31.9 s High 11.7-14.9 [facility] Comment on above: Order Comment: 411.2 Performed By: #### L 300.3900 ####[facility] [address] [place], [address] Prothrombin timeOrdered By: Kvng Crisostomo on 05-01-2024 PT Coag (PPP) [Time] 31.9 s High 11.7-14.9 [facility] normalized rat io (INR) calculationOrdered By: Carlos Cavazos on 04-28-2024 INR Coag (Bld) [Relative time] 2.6 {INR} [facility] Prothrombin Time w/INRon INR Coag (PPP) [Relative time] 2.6 {INR} Normal [facility] Comment on above: Order Comment: 411-2 Performed By: #### L 300.3900 ####[facility] [address] [place], [address] PT Coag (PPP) [Time] 27.3 s High 11.7-14.9 [facility] Comment on above: Order Comment: 411-2 Performed By: #### L 300.3900 ####[facility] [address] [place], [address] Prothrombin timeOrdered By: Carlos Cavazos on 04-28-2024 PT Coag (PPP) [Time] 27.3 s High 11.7-14.9 [facility] normalized rat io (INR) calculationOrdered By: Kvng Crisostomo on 04-24-2024 INR Coag (Bld) [Relative time] 3.6 {INR} [facility] Prothrombin Time w/INRon INR Coag (PPP) [Relative time] 3.6 {INR} Normal [facility] Comment on above: Order Comment: 411.2 Performed By: #### L 300.3900 ####[facility] [address] [place], [address] PT Coag (PPP) [Time] 35.6 s High 11.7-14.9 [facility] Comment on above: Order Comment: 411.2 Performed By: #### L 300.3900 ####[facility] [address] [place], [place], [phone] Prothrombin timeOrdered By: Kvng Crisostomo on 04-24-2024 PT Coag (PPP) [Time] 35.6 s High 11.7-14.9 [facility] normalized rat io (INR) calculationOrdered By: Carlos Cavazos on 04-21-2024 INR Coag (Bld) [Relative time] 2.8 {INR} [facility] Prothrombin Time w/INRon INR Coag (PPP) [Relative time] 2.8 {INR} Normal [facility] Comment on above: Order Comment: 411-2 Performed By: #### L 300.3900 ####[facility] [address] [place], [address] PT Coag (PPP) [Time] 29.4 s High 11.7-14.9 [facility] Comment on above: Order Comment: 411-2 Performed By: #### L 300.3900 ####[facility] [address] [place], [address] Prothrombin timeOrdered By: Carlos Cavazos on 04-21-2024 PT Coag (PPP) [Time] 29.4 s High 11.7-14.9 [facility] normalized rat io (INR) calculationOrdered By: Kvng Crisostomo on 04-17-2024 INR Coag (Bld) [Relative time] 3.1 {INR} [facility] Prothrombin Time w/INRon INR Coag (PPP) [Relative time] 3.1 {INR} Normal [facility] Comment on above: Order Comment: 411.2 Performed By: #### L 300.3900 ####[facility] [address] [place], [place], [phone] Prothrombin timeOrdered By: Kvng Crisostomo on 04-17-2024 PT Coag (PPP) [Time] 31.3 s High 11.7-14.9 [facility] Comment on above: Order Comment: 411.2 Performed By: #### L 300.3900 ####[facility] [address] [place], [place], [phone] International normalized rat io (INR) calculationOrdered By: Kvng Crisostomo on 04-14-2024 INR Coag (Bld) [Relative time] 3.3 {INR} [facility] Prothrombin Time w/INRon INR Coag (PPP) [Relative time] 3.3 {INR} Normal [facility] Comment on above: Order Comment: 411.2 Performed By: #### L 300.3900 ####[facility] [address] [place], [place], [phone] PT Coag (PPP) [Time] 33.2 s High 11.7-14.9 [facility] Comment on above: Order Comment: 411.2 Performed By: #### L 300.3900 ####[facility] [address] [place], [place], [phone] Prothrombin timeOrdered By: Kvng Crisostomo on 04-14-2024 PT Coag (PPP) [Time] 33.2 s High 11.7-14.9 [facility] normalized rat io (INR) calculationOrdered By: Kvng Crisostomo on 04-10-2024 INR Coag (Bld) [Relative time] 2.8 {INR} [facility] Prothrombin Time w/INRon INR Coag (PPP) [Relative time] 2.8 {INR} Normal [facility] Comment on above: Order Comment: 411.2 Performed By: #### L 300.3900 ####[facility] [address] [place], [address] PT Coag (PPP) [Time] 29.2 s High 11.7-14.9 [facility] Comment on above: Order Comment: 411.2 Performed By: #### L 300.3900 ####[facility] [address] [place], [address] Prothrombin timeOrdered By: Kvng Crisostomo on 04-10-2024 PT Coag (PPP) [Time] 29.2 s High 11.7-14.9 [facility] normalized rat io (INR) calculationOrdered By: Carlos Cavazos on 04-07-2024 INR Coag (Bld) [Relative time] 2.7 {INR} [facility] Prothrombin Time w/INRon INR Coag (PPP) [Relative time] 2.7 {INR} Normal [facility] Comment on above: Order Comment: 411-2 Performed By: #### L 300.3900 ####[facility] [address] [place], [address] PT Coag (PPP) [Time] 28.1 s High 11.7-14.9 [facility] Comment on above: Order Comment: 411-2 Performed By: #### L 300.3900 ####[facility] [address] [place], [address] Prothrombin timeOrdered By: Carlos Cavazos on 04-07-2024 PT Coag (PPP) [Time] 28.1 s High 11.7-14.9 [facility] normalized rat io (INR) calculationOrdered By: Kvng Crisostomo on 04-04-2024 INR Coag (Bld) [Relative time] 2.8 {INR} [facility] Prothrombin Time w/INRon INR Coag (PPP) [Relative time] 2.8 {INR} Normal [facility] Comment on above: Order Comment: 411.2 Performed By: #### L 300.3900 ####[facility] [address], [address] PT Coag (PPP) [Time] 28.9 s High 11.7-14.9 [facility] Comment on above: Order Comment: 411.2 Performed By: #### L 300.3900 ####[facility] [address] [place], [address] Prothrombin timeOrdered By: Kvng Crisostomo on 04-04-2024 PT Coag (PPP) [Time] 28.9 s High 11.7-14.9 [facility] normalized rat io (INR) calculationOrdered By: Carlos Cavazos on 03-31-2024 INR Coag (Bld) [Relative time] 2.6 {INR} [facility] Prothrombin Time w/INRon INR Coag (PPP) [Relative time] 2.6 {INR} Normal [facility] Comment on above: Order Comment: 411-2 Performed By: #### L 300.3900 ####[facility] [address] [place], [address] PT Coag (PPP) [Time] 27.3 s High 11.7-14.9 [facility] Comment on above: Order Comment: 411-2 Performed By: #### L 300.3900 ####[facility] [address] [place], [address] Prothrombin timeOrdered By: Carlos Cavazos on 03-31-2024 PT Coag (PPP) [Time] 27.3 s High 11.7-14.9 [facility] normalized rat io (INR) calculationOrdered By: [employer] on 03-27-2024 INR Coag (Bld) [Relative time] 2.2 {INR} [facility] Prothrombin Time w/INRon INR Coag (PPP) [Relative time] 2.2 {INR} Normal [facility] Comment on above: Order Comment: 411.2 Performed By: #### L 300.3900 ####[facility] [address] [place], [address] PT Coag (PPP) [Time] 24.3 s High 11.7-14.9 [facility] Comment on above: Order Comment: 411.2 Performed By: #### L 300.3900 ####[facility] [address] [place], [address] Prothrombin timeOrdered By: [employer] on 03-27-2024 PT Coag (PPP) [Time] 24.3 s High 11.7-14.9 [facility] normalized rat io (INR) calculationOrdered By: Kvng Crisostomo on 03-24-2024 INR Coag (Bld) [Relative time] 1.8 {INR} [facility] Prothrombin Time w/INRon INR Coag (PPP) [Relative time] 1.8 {INR} Normal [facility] Comment on above: Order Comment: 411.2 Performed By: #### L 300.3900 ####[facility] [address] [place], [address] PT Coag (PPP) [Time] 20.7 s High 11.7-14.9 [facility] Comment on above: Order Comment: 411.2 Performed By: #### L 300.3900 ####[facility] [address] [place], [address] Prothrombin timeOrdered By: Kvng Crisostomo on 03-24-2024 PT Coag (PPP) [Time] 20.7 s High 11.7-14.9 [facility] normalized rat io (INR) calculationOrdered By: [employer] on 03-20-2024 INR Coag (Bld) [Relative time] 1.8 {INR} [facility] Prothrombin Time w/INRon INR Coag (PPP) [Relative time] 1.8 {INR} Normal [facility] Comment on above: Order Comment: 411.2 Performed By: #### L 300.3900 ####[facility] [address] [place], [address] PT Coag (PPP) [Time] 20.9 s High 11.7-14.9 [facility] Comment on above: Order Comment: 411.2 Performed By: #### L 300.3900 ####[facility] [address] [place], [address] Prothrombin timeOrdered By: [employer] on 03-20-2024 PT Coag (PPP) [Time] 20.9 s High 11.7-14.9 [facility] normalized rat io (INR) calculationOrdered By: Kvng Crisostomo on 03-19-2024 INR Coag (Bld) [Relative time] 2.4 {INR} [facility] Prothrombin Time w/INRon INR Coag (PPP) [Relative time] 2.4 {INR} Normal [facility] Comment on above: Order Comment: 411.2 Performed By: #### L 300.3900 ####[facility] [address] [place], [address] PT Coag (PPP) [Time] 26.4 s High 11.7-14.9 [facility] Comment on above: Order Comment: 411.2 Performed By: #### L 300.3900 ####[facility] [address] [place], [address] Prothrombin timeOrdered By: Kvng Crisostomo on 03-19-2024 PT Coag (PPP) [Time] 26.4 s High 11.7-14.9 [facility] normalized rat io (INR) calculationOrdered By: [employer] on 03-18-2024 INR Coag (Bld) [Relative time] 3.2 {INR} [facility] Prothrombin Time w/INRon INR Coag (PPP) [Relative time] 3.2 {INR} Normal [facility] Comment on above: Order Comment: 411.2 Performed By: #### L 300.3900 ####[facility] [address] [place], [address] PT Coag (PPP) [Time] 32.3 s High 11.7-14.9 [facility] Comment on above: Order Comment: 411.2 Performed By: #### L 300.3900 ####[facility] [address] [place], [address] Prothrombin timeOrdered By: [employer] on 03-18-2024 PT Coag (PPP) [Time] 32.3 s High 11.7-14.9 [facility] normalized rat io (INR) calculationOrdered By: [employer] on 03-17-2024 INR Coag (Bld) [Relative time] 3.6 {INR} [facility] Prothrombin Time w/INRon INR Coag (PPP) [Relative time] 3.6 {INR} Normal [facility] Comment on above: Order Comment: 411.2 Performed By: #### L 300.3900 ####[facility] [address] [place], [address] PT Coag (PPP) [Time] 35.7 s High 11.7-14.9 [facility] Comment on above: Order Comment: 411.2 Performed By: #### L 300.3900 ####[facility] [address] [place], [address] Prothrombin timeOrdered By: [employer] on 03-17-2024 PT Coag (PPP) [Time] 35.7 s High 11.7-14.9 [facility] normalized rat io (INR) calculationOrdered By: Carlos Cavazos on 03-14-2024 INR Coag (Bld) [Relative time] 3.5 {INR} [facility] Prothrombin Time w/INRon INR Coag (PPP) [Relative time] 3.5 {INR} Normal [facility] Comment on above: Order Comment: 411-2 Performed By: #### L 300.3900 ####[facility] [address] [place], [address] PT Coag (PPP) [Time] 35.0 s High 11.7-14.9 [facility] Comment on above: Order Comment: 411-2 Performed By: #### L 300.3900 ####[facility] [address] [place], [address] Prothrombin timeOrdered By: Carlos Cavazos on 03-14-2024 PT Coag (PPP) [Time] 35.0 s High 11.7-14.9 [facility] normalized rat io (INR) calculationOrdered By: [facility] on 03-13-2024 INR Coag (Bld) [Relative time] 3.2 {INR} [facility] Prothrombin Time w/INRon INR Coag (PPP) [Relative time] 3.2 {INR} Normal [facility] Comment on above: Performed By: #### L 300.3900 ####[facility] [address] [place], [address] PT Coag (PPP) [Time] 32.2 s High 11.7-14.9 [facility] Comment on above: Performed By: #### L 300.3900 ####[facility] [address] [place], [address] Prothrombin timeOrdered By: [employer] on 03-13-2024 PT Coag (PPP) [Time] 32.2 s High 11.7-14.9 [facility] Prothrombin Time w/INRon INR Coag (PPP) [Relative time] 2.6 {INR} Normal [facility] Comment on above: Order Comment: 411.2 Performed By: #### L 300.3900 ####[facility] [address] [place], [address] PT Coag (PPP) [Time] 27.7 s High 11.7-14.9 [facility] Comment on above: Order Comment: 411.2 Performed By: #### L 300.3900 ####[facility] [address] [place], [address] Prothrombin Time w/INRon INR Coag (PPP) [Relative time] 3.1 {INR} Normal [facility] Comment on above: Order Comment: 411.2 Performed By: #### L 300.3900 ####[facility] [address] [place], [address] PT Coag (PPP) [Time] 31.4 s High 11.7-14.9 [facility] Comment on above: Order Comment: 411.2 Performed By: #### L 300.3900 ####[facility] [address] [place], [address] Prothrombin Time w/INRon INR Coag (PPP) [Relative time] 3.1 {INR} Normal [facility] Comment on above: Order Comment: 411.2 Performed By: #### L 300.3900 ####[facility] [address] [place], [address] PT Coag (PPP) [Time] 31.8 s High 11.7-14.9 [facility] Comment on above: Order Comment: 411.2 Performed By: #### L 300.3900 ####[facility] [address] [place], [address] Prothrombin Time w/INRon INR Coag (PPP) [Relative time] 3.0 {INR} Normal [facility] Comment on above: Order Comment: 411.2 Performed By: #### L 300.3900 ####[facility] [address] [place], [address] PT Coag (PPP) [Time] 30.6 s High 11.7-14.9 [facility] Comment on above: Order Comment: 411.2 Performed By: #### L 300.3900 ####[facility] [address] [place], [address] Prothrombin Time w/INRon - INR Coag (PPP) [Relative time] 2.6 {INR} Normal [facility] Comment on above: Order Comment: 411-2 Performed By: #### L 300.3900 ####[facility] [address] [place], [address] PT Coag (PPP) [Time] 27.5 s High 11.7-14.9 [facility] Comment on above: Order Comment: 411-2 Performed By: #### L 300.3900 ####[facility] [address] [place], [address] Prothrombin Time w/INRon INR Coag (PPP) [Relative time] 2.3 {INR} Normal [facility] Comment on above: Order Comment: 411.2 Performed By: #### L 300.3900 ####[facility] [address] [place], [address] PT Coag (PPP) [Time] 25.5 s High 11.7-14.9 [facility] Comment on above: Order Comment: 411.2 Performed By: #### L 300.3900 ####[facility] [address] [place], [address] Prothrombin Time w/INRon - INR Coag (PPP) [Relative time] 1.9 {INR} Normal [facility] Comment on above: Order Comment: 411.2 Performed By: #### L 300.3900 ####[facility] [address] [place], [address] PT Coag (PPP) [Time] 21.3 s High 11.7-14.9 [facility] Comment on above: Order Comment: 411.2 Performed By: #### L 300.3900 ####[facility] [address] [place], [address] Prothrombin Time w/INRon INR Coag (PPP) [Relative time] 2.5 {INR} Normal [facility] Comment on above: Order Comment: 411.2 Performed By: #### L 300.3900 ####[facility] [address] [place], [address] PT Coag (PPP) [Time] 26.5 s High 11.7-14.9 [facility] Comment on above: Order Comment: 411.2 Performed By: #### L 300.3900 ####[facility] [address] [place], [address] Prothrombin Time w/INRon INR Coag (PPP) [Relative time] 2.9 {INR} Normal [facility] Comment on above: Order Comment: 411.2 Performed By: #### L 300.3900 ####[facility] [address] [place], [address] PT Coag (PPP) [Time] 30.2 s High 11.7-14.9 [facility] Comment on above: Order Comment: 411.2 Performed By: #### L 300.3900 ####[facility] [address] [place], [address] Prothrombin Time w/INRon INR Coag (PPP) [Relative time] 3.6 {INR} Normal [facility] Comment on above: Order Comment: 411.2 Performed By: #### L 300.3900 ####[facility] [address] [place], [address] PT Coag (PPP) [Time] 35.3 s High 11.7-14.9 [facility] Comment on above: Order Comment: 411.2 Performed By: #### L 300.3900 ####[facility] [address] [place], [address] Prothrombin Time w/INRon INR Coag (PPP) [Relative time] 2.8 {INR} Normal [facility] Comment on above: Order Comment: 411-2 Performed By: #### L 300.3900 ####[facility] [address] [place], [address] PT Coag (PPP) [Time] 29.4 s High 11.7-14.9 [facility] Comment on above: Order Comment: 411-2 Performed By: #### L 300.3900 ####[facility] [address] [place], [address] Prothrombin Time w/INRon INR Coag (PPP) [Relative time] 2.9 {INR} Normal [facility] Comment on above: Order Comment: 411.2 Performed By: #### L 300.3900 ####[facility] [address] [place], [address] PT Coag (PPP) [Time] 29.9 s High 11.7-14.9 [facility] Comment on above: Order Comment: 411.2 Performed By: #### L 300.3900 ####[facility] [address] [place], [address] Prothrombin Time w/INRon INR Coag (PPP) [Relative time] 2.2 {INR} Normal [facility] Comment on above: Order Comment: 411.2 Performed By: #### L 300.3900 ####[facility] [address] [place], [address] PT Coag (PPP) [Time] 24.1 s High 11.7-14.9 [facility] Comment on above: Order Comment: 411.2 Performed By: #### L 300.3900 ####[facility] [address] [place], [address] Prothrombin Time w/INRon INR Coag (PPP) [Relative time] 2.1 {INR} Normal [facility] Comment on above: Order Comment: 411-2 Performed By: #### L 300.3900 ####[facility] [address] [place], [address] PT Coag (PPP) [Time] 23.0 s High 11.7-14.9 [facility] Comment on above: Order Comment: 411-2 Performed By: #### L 300.3900 ####[facility] [address] [place], [address] Prothrombin Time w/INRon INR Coag (PPP) [Relative time] 2.8 {INR} Normal [facility] Comment on above: Performed By: #### L 300.3900 ####[facility] [address] [place], [address] PT Coag (PPP) [Time] 28.9 s High 11.7-14.9 [facility] Comment on above: Performed By: #### L 300.3900 ####[facility] [address] [place], [address] Protime w/INR Fingerstickon 01-29-2024 INR Coag (PPP) [Relative time] 3.2 {INR} Normal [facility] Comment on above: Result Comment: Crit ical Value > 4.0 Performed By: #### L 9200.0000 ####[facility] [address] [place], [address] Protime Coagsen 31.8 SEC High 11.7-14.9 [facility] Comment on above: Performed By: #### L 9200.0000 ####[facility] [address] [place], [address] KEPPRA (LEVETIRACETAM)on KEPPRA 35.2 ug/mL Normal 10.0-40.0 [facility] Comment on above: Order Comment: 411-2 Result Comment: Perf ormed at: [facility] [address] [id number] Director: Alpesh Vázquez MD, Phone: [phone] Performed By: #### L 300.3900, L3310.0000 ####[facility] [address] [place], [address] Prothrombin Time w/INRon INR Coag (PPP) [Relative time] 2.9 {INR} Normal [facility] Comment on above: Order Comment: 411-2 Performed By: #### L 300.3900, L3310.0000 ####[facility] [address] [place], [address] PT Coag (PPP) [Time] 30.1 s High 11.7-14.9 [facility] Comment on above: Order Comment: 411-2 Performed By: #### L 300.3900, L3310.0000 ####[facility] [address] [place], [address] Prothrombin Time w/INRon INR Coag (PPP) [Relative time] 2.3 {INR} Normal [facility] Comment on above: Order Comment: 411-2 Performed By: #### L 300.3900 ####[facility] [address] [place], [address] PT Coag (PPP) [Time] 25.2 s High 11.7-14.9 [facility] Comment on above: Order Comment: 411-2 Performed By: #### L 300.3900 ####[facility] [address] [place], [address] Prothrombin Time w/INRon INR Coag (PPP) [Relative time] 2.7 {INR} Normal [facility] Comment on above: Order Comment: 411-2 Performed By: #### L 300.3900 ####[facility] [address] [place], [address] PT Coag (PPP) [Time] 28.3 s High 11.7-14.9 [facility] Comment on above: Order Comment: 411-2 Performed By: #### L 300.3900 ####[facility] [address] [place], [address] Protime w/INR Fingerstickon 01-10-2024 INR Coag (PPP) [Relative time] 3.5 {INR} Normal [facility] Comment on above: Result Comment: Crit ical Value > 4.0 Performed By: #### L 9200.0000 ####[facility] [address] [place], [address] Protime Coagsen 34.2 SEC High 11.7-14.9 [facility] Comment on above: Performed By: #### L 9200.0000 ####[facility] [address] [place], [address] CBC-Complete Blood Cnt No Di ffon 01-08-2024 Erythrocyte distribution width (RBC) [Ratio] 15.2 % High 11.6-14.6 [facility] Comment on above: Order Comment: 411-2 Performed By: #### L 100.0500, L300.3900 ####[facility] [address] [place], [address] Hematocrit (Bld) [Volume fraction] 39.0 % Low 40-54 [facility] Comment on above: Order Comment: 411-2 Performed By: #### L 100.0500, L300.3900 ####[facility] [address] [place], [address] Hemoglobin (Bld) [Mass/Vol] 12.1 g/dL Low 13.0-16.5 [facility] Comment on above: Order Comment: 411-2 Performed By: #### L 100.0500, L300.3900 ####[facility] [address] [place], [address] MCH (RBC) [Entitic mass] 27.1 pg Normal 27.0-32.0 [facility] Comment on above: Order Comment: 411-2 Performed By: #### L 100.0500, L300.3900 ####[facility] [address] [place], [address] MCHC (RBC) [Mass/Vol] 31.0 g/dL Low 32-36 [facility] Comment on above: Order Comment: 411-2 Performed By: #### L 100.0500, L300.3900 ####[facility] [address] [place], [address] MCV (RBC) [Entitic vol] 87.2 fL Normal 80-94 [facility] Comment on above: Order Comment: 411-2 Performed By: #### L 100.0500, L300.3900 ####[facility] [address] [place], [address] Platelet mean volume (Bld) [Entitic vol] 10.8 fL Normal 6.2-12.0 [facility] Comment on above: Order Comment: 411-2 Performed By: #### L 100.0500, L300.3900 ####[facility] [address] [place], [address] Platelets (Bld) [#/Vol] 300 10*3/uL Normal 150-450 [facility] Comment on above: Order Comment: 411-2 Performed By: #### L 100.0500, L300.3900 ####[facility] [address] [place], [address] RBC (Bld) [#/Vol] 4.47 10*6/uL Low 4.6-6.2 [facility] Comment on above: Order Comment: 411-2 Performed By: #### L 100.0500, L300.3900 ####[facility] [address] [place], [address] RDW SD 48.7 fl High 35.1-43.9 [facility] Comment on above: Order Comment: 411-2 Performed By: #### L 100.0500, L300.3900 ####[facility] [address] [place], [address] WBC (Bld) [#/Vol] 13.0 10*3/uL High 4.4-11.0 [facility] Comment on above: Order Comment: 411-2 Performed By: #### L 100.0500, L300.3900 ####[facility] [address] [place], [address] Prothrombin Time w/INRon INR Coag (PPP) [Relative time] 3.9 {INR} Normal [facility] Comment on above: Order Comment: 411-2 Performed By: #### L 100.0500, L300.3900 ####[facility] [address] [place], [address] PT Coag (PPP) [Time] 37.8 s High 11.7-14.9 [facility] Comment on above: Order Comment: 411-2 Performed By: #### L 100.0500, L300.3900 ####[facility] [address] [place], [address] Urine Cultureon 01-03-2024 URC Culture exhibits no growth. Normal [facility] Comment on above: Performed By: #### M 100.2200, L400.0001, L300.3900 ####[facility] [address] [place], [address] Prothrombin Time w/INRon INR Coag (PPP) [Relative time] 3.0 {INR} Normal [facility] Comment on above: Performed By: #### M 100.2200, L400.0001, L300.3900 ####[facility] [address] [place], [address] PT Coag (PPP) [Time] 30.7 s High 11.7-14.9 [facility] Comment on above: Performed By: #### M 100.2200, L400.0001, L300.3900 ####[facility] [address] [place], [address] Urinalysis, Completeon 01-01 RBC 0-5 SEEN Normal 0-5 [facility] Comment on above: Order Comment: CLEAN CATCH Performed By: #### M 100.2200, L400.0001, L300.3900 ####[facility] [address] [place], [address] BACTERIA 0 SEEN Normal None Seen [facility] Comment on above: Order Comment: CLEAN CATCH Performed By: #### M 100.2200, L400.0001, L300.3900 ####[facility] [address] [place], [address] EPI,SQUAMOUS 0 SEEN Normal 0-5 [facility] Comment on above: Order Comment: CLEAN CATCH Performed By: #### M 100.2200, L400.0001, L300.3900 ####[facility] [address] [place], [address] Mucus Ql (Urine sed) 0 SEEN Normal [facility] Comment on above: Order Comment: CLEAN CATCH Performed By: #### M 100.2200, L400.0001, L300.3900 ####[facility] [address] [place], [address] WBC 0 SEEN Normal 0-5 [facility] Comment on above: Order Comment: CLEAN CATCH Performed By: #### M 100.2200, L400.0001, L300.3900 ####[facility] [address] [place], [address] Basic Metabolic Profile (BMP )on 01-01-2024 BUN/CRE 25.0 RATIO High 10-20 [facility] Comment on above: Order Comment: 411.2 Performed By: #### L 300.3900, L100.0500, L500.2500 ####[facility] [address] [place], [address] CA,Total 9.1 mg/dL Normal 8.5-10.1 [facility] Comment on above: Order Comment: 411.2 Performed By: #### L 300.3900, L100.0500, L500.2500 ####[facility] [address] [place], [address] Chloride [Moles/Vol] 104 mmol/L Normal 98-107 [facility] Comment on above: Order Comment: 411.2 Performed By: #### L 300.3900, L100.0500, L500.2500 ####[facility] [address] [place], [address] CO2 [Moles/Vol] 24.0 mmol/L Normal 21.0-32.0 [facility] Comment on above: Order Comment: 411.2 Performed By: #### L 300.3900, L100.0500, L500.2500 ####[facility] [address] [place], [address] Creatinine [Mass/Vol] 0.84 mg/dL Normal 0.70-1.30 [facility] Comment on above: Order Comment: 411.2 Result Comment: The validity of the calculated GFR GFRAA in patients over70 years has not been determined. Clinical correlation isessential. Performed By: #### L 300.3900, L100.0500, L500.2500 ####[facility] [address] [place], [address] EST GFR - AA 116 mL/min Normal >60 [facility] Comment on above: Order Comment: 411.2 Result Comment: Afri can Qatari GFR Calc Performed By: #### L 300.3900, L100.0500, L500.2500 ####[facility] [address] [place], [address] GAP 9 Normal 5-15 [facility] Comment on above: Order Comment: 411.2 Performed By: #### L 300.3900, L100.0500, L500.2500 ####[facility] [address] [place], [address] GFR/1.73 sq M.predicted among non-blacks MDRD (S/P/Bld) [Vol rate/Area] 95 mL/min/{1.73_m2} Normal >60 [facility] Comment on above: Order Comment: 411.2 Result Comment: Non- GFR Calc Performed By: #### L 300.3900, L100.0500, L500.2500 ####[facility] [address] [place], [address] Glucose [Mass/Vol] 92 mg/dL Normal 74-106 [facility] Comment on above: Order Comment: 411.2 Performed By: #### L 300.3900, L100.0500, L500.2500 ####[facility] [address] [place], [address] Potassium [Moles/Vol] 4.2 mmol/L Normal 3.5-5.1 [facility] Comment on above: Order Comment: 411.2 Performed By: #### L 300.3900, L100.0500, L500.2500 ####[facility] [address] [place], [address] Sodium [Moles/Vol] 137 mmol/L Normal 136-145 [facility] Comment on above: Order Comment: 411.2 Performed By: #### L 300.3900, L100.0500, L500.2500 ####[facility] [address] [place], [address] Urea nitrogen [Mass/Vol] 21 mg/dL High 7-18 [facility] Comment on above: Order Comment: 411.2 Performed By: #### L 300.3900, L100.0500, L500.2500 ####[facility] [address] [place], [address] CBC-Complete Blood Cnt No Di ffon 01-01-2024 Erythrocyte distribution width (RBC) [Ratio] 14.9 % High 11.6-14.6 [facility] Comment on above: Order Comment: 411.2 Performed By: #### L 300.3900, L100.0500, L500.2500 ####[facility] [address] [place], [address] Hematocrit (Bld) [Volume fraction] 38.4 % Low 40-54 [facility] Comment on above: Order Comment: 411.2 Performed By: #### L 300.3900, L100.0500, L500.2500 ####[facility] [address] [place], [address] Hemoglobin (Bld) [Mass/Vol] 12.2 g/dL Low 13.0-16.5 [facility] Comment on above: Order Comment: 411.2 Performed By: #### L 300.3900, L100.0500, L500.2500 ####[facility] [address] [place], [address] MCH (RBC) [Entitic mass] 27.1 pg Normal 27.0-32.0 [facility] Comment on above: Order Comment: 411.2 Performed By: #### L 300.3900, L100.0500, L500.2500 ####[facility] [address] [place], [address] MCHC (RBC) [Mass/Vol] 31.8 g/dL Low 32-36 [facility] Comment on above: Order Comment: 411.2 Performed By: #### L 300.3900, L100.0500, L500.2500 ####[facility] [address] [place], [address] MCV (RBC) [Entitic vol] 85.3 fL Normal 80-94 [facility] Comment on above: Order Comment: 411.2 Performed By: #### L 300.3900, L100.0500, L500.2500 ####[facility] [address] [place], [address] Platelet mean volume (Bld) [Entitic vol] 10.1 fL Normal 6.2-12.0 [facility] Comment on above: Order Comment: 411.2 Performed By: #### L 300.3900, L100.0500, L500.2500 ####[facility] [address] [place], [address] Platelets (Bld) [#/Vol] 287 10*3/uL Normal 150-450 [facility] Comment on above: Order Comment: 411.2 Performed By: #### L 300.3900, L100.0500, L500.2500 ####[facility] [address] [place], [address] RBC (Bld) [#/Vol] 4.50 10*6/uL Low 4.6-6.2 [facility] Comment on above: Order Comment: 411.2 Performed By: #### L 300.3900, L100.0500, L500.2500 ####[facility] [address] [place], [address] RDW SD 46.5 fl High 35.1-43.9 [facility] Comment on above: Order Comment: 411.2 Performed By: #### L 300.3900, L100.0500, L500.2500 ####[facility] [address] [place], [address] WBC (Bld) [#/Vol] 14.8 10*3/uL High 4.4-11.0 [facility] Comment on above: Order Comment: 411.2 Performed By: #### L 300.3900, L100.0500, L500.2500 ####[facility] [address] [place], [address] Prothrombin Time w/INRon INR Coag (PPP) [Relative time] 2.5 {INR} Normal [facility] Comment on above: Order Comment: 411.2 Performed By: #### L 300.3900, L100.0500, L500.2500 ####[facility] [address] [place], [address] PT Coag (PPP) [Time] 26.6 s High 11.7-14.9 [facility] Comment on above: Order Comment: 411.2 Performed By: #### L 300.3900, L100.0500, L500.2500 ####[facility] [address] [place], [address] Prothrombin Time w/INRon INR Coag (PPP) [Relative time] 2.1 {INR} Normal [facility] Comment on above: Order Comment: 411.2 Performed By: #### L 300.3900 ####[facility] [address] [place], [address] PT Coag (PPP) [Time] 23.5 s High 11.7-14.9 [facility] Comment on above: Order Comment: 411.2 Performed By: #### L 300.3900 ####[facility] [address] [place], [place], [address] Prothrombin Time w/INRon INR Coag (PPP) [Relative time] 3.2 {INR} Normal [facility] Comment on above: Order Comment: 411-2 Performed By: #### L 300.3900 ####[facility] [address] [place], [place], [address] PT Coag (PPP) [Time] 32.6 s High 11.7-14.9 [facility] Comment on above: Order Comment: 411-2 Performed By: #### L 300.3900 ####[facility] [address] [place], [place], [address] Office Visiton 09-13-2023 Follow-up visit [id number] Eric Sifuentesvanessa Gonzalez 1950 M Pasha Provider Department Center 09/13/2023 [id number]-SAHCMAREBECCA BUCK [facility] None Family History Problem Relation Age of Onset Heart disease Father Cancer Mother Family Status - Relation Status Age at Father Mother Level of Service:33661 [place] OFFICE/OUTPATIENT ESTABLISHED MOD MDM 30 MIN Reason for Visit and Comments: left flank pain [Other] - 8/10 pain when touched Normal [facility] Progress Noteon 09-13-2023 Progress Note Walt [...] Hydrocephalus, adult (CMS/HCC) (HCC) 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 Normal [facility] CT ABDOMEN PELVIS WO IV CONT Kelly 09-07-2023 CT ABDOMEN PELVIS WO IV CONTRAST Patient Name: [facility]W [facility]UENTES : 1950 [id number] Exam Date/Time: 09/06/2023 18:14 Procedure: CT ABDOMEN [...] a kidney stone; pt has a hernia [address] 08-29-2023 36 Lm on daughters vm t o advise them to call the number for the storage manager to get clarification, and to call back with further questions [address] 08-27-2023 36 Yes, they will need to call the number given to them. [facility] 36 Please advise [address] 08-21-2023 36 Name of caller: Zion holt Contact phone number: [phone] Relationship to Patient: patient Provider: MD Quinn Practice: [facility] Chief Complaint/Reason for Call: Shanthi called [...] to reach out to call Maury Cedeño Roll Setter at [facility] [phone] to get clarifications. TEA did reach back out to [facility] and advised and provider Maury's #. Please advise Best time of day caller can be reached: Any Patient advised that office/PCP has 24-48 business hours to return their call: N/A [facility] - CoagulationOrde red By: Carlos Cavazos on 08-21-2023 INR Coag (Bld) [Relative time] 2.7 {INR} [facility] PT Coag (PPP) [Time] 28.9 s 11.7-14.9 [facility] Office Visiton 08-13-2023 Follow-up visit [id number] Tamie Sifuentes cheng R 1950 M Date Provider Department Center 08/13/2023 [id number] BUCK [facility] None Family History Problem Relation Age of Onset Heart disease Father Cancer Mother Family Status - Relation Status Age at Father Mother Level of Service:59591 [place] OFFICE/OUTPATIENT NEW MODERATE MDM 45 MINUTES Reason for Visit and Comments: New Patient [542] - Bilateral flank pain, hx of kidney stones Nephrolithiasis [596370] [facility] Progress Noteon 08-13-2023 Progress Note Walt Moran [...] Hydrocephalus, adult (CMS/HCC) (HCC) 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 Normal [facility] No Panel InformationOrdered By: Carlos Cavazos on 08-03-2023 Levetiracetam (Keppra) Level 32.4 ug/mL 10.0-40.0 [facility] Comment on above: Performed at: [address] [id number] Director: Alpesh Vázquez MD, Phone: [phone] Basophil percentageOrdered B y: Carlos Cavazos on 07-20-2023 Chloride [Moles/Vol] 106 mmol/L 98-107 [facility] Glucose [Mass/Vol] 98 mg/dL 74-106 [facility] Hemoglobin (Bld) [Mass/Vol] 12.5 g/dL 13.0-16.5 [facility] Potassium [Moles/Vol] 4.3 mmol/L 3.5-5.1 [facility] Sodium [Moles/Vol] 135 mmol/L 136-145 [facility] WBC (Bld) [#/Vol] 13.0 10*3/uL 4.4-11.0 [facility] Determination of erythrocyte mean corpuscular volume (MCV)Ordered By: Carlos Cavazos on 07-20-2023 MCV (RBC) [Entitic vol] 86.2 fL 80-94 [facility] Erythrocyte distribution wid th ratioOrdered By: Carlos Cavazos on 07-20-2023 Erythrocyte distribution width (RBC) [Ratio] 15.3 % 11.6-14.6 [facility] Erythrocyte distribution wid th standard deviationOrdered By: Carlos Cavazos on 07-20-2023 Erythrocyte distribution width (RBC) [Entitic vol] 48.1 fL 35.1-43.9 [facility] Hematocrit Auto (Bld) [Volum e fraction]Ordered By: Carlos Cavazos on 07-20-2023 Hematocrit (Bld) [Volume fraction] 39.9 % 40-54 [facility] Laboratory - Chemistry and C hemistry - challengeOrdered By: Carlos Cavazos on 07-20-2023 CO2 [Moles/Vol] 24.0 mmol/L 21.0-32.0 [facility] Urea nitrogen/Creatinine [Mass ratio] 24.6 mg/mg 10-20 [facility] Laboratory - Hematology and Cell countsOrdered By: Carlos Cavazos on 07-20-2023 MCH (RBC) [Entitic mass] 27.0 pg 27.0-32.0 [facility] MCHC (RBC) [Mass/Vol] 31.3 g/dL 32-36 [facility] Platelet mean volume (Bld) [Entitic vol] 10.7 fL 6.2-12.0 [facility] Platelets (Bld) [#/Vol] 260 10*3/uL 150-450 [facility] No Panel InformationOrdered By: Carlos Cavazos on 07-20-2023 Estimated GFR (MDRD) Amer 114 mL/min >60 [facility] Comment on above: GFR Calc Estimated GFR (MDRD) Non-Af Amer 94 mL/min >60 [facility] Comment on above: Non- GFR Calc RBC Auto (Bld) [#/Vol]Ordere d By: Carlos Cavazos on 07-20-2023 RBC (Bld) [#/Vol] 4.63 10*6/uL 4.6-6.2 [facility] Serum or plasma calcium oral urement (mass/volume)Ordered By: Carlos Cavazos on 07-20-2023 Calcium [Mass/Vol] 8.6 mg/dL 8.5-10.1 [facility] Serum or plasma creatinine m easurement (mass/volume)Ordered By: Carlos Cavazos on 07-20-2023 Creatinine [Mass/Vol] 0.85 mg/dL 0.70-1.30 [facility] Comment on above: The validity of the calculated GFR & GFRAA in patients over 70 years has not been determined. Clinical correlation is essential. Serum or plasma urea nitroge n measurement (mass/volume)Ordered By: Carlos Cavazos on 07-20-2023 Urea nitrogen [Mass/Vol] 21 mg/dL 7-18 [facility] Thin prep Papanicolaou smear with manual screeningOrdered By: Carlos Cavazos on 07-20-2023 Thin prep Papanicolaou smear with manual screening 5 5-15 [facility] Basophil percentageOrdered B y: Carlos Cavazos on 07-18-2023 Chloride [Moles/Vol] 102 mmol/L 98-107 [facility] Glucose [Mass/Vol] 96 mg/dL 74-106 [facility] Hemoglobin (Bld) [Mass/Vol] 12.3 g/dL 13.0-16.5 [facility] Potassium [Moles/Vol] 4.2 mmol/L 3.5-5.1 [facility] Sodium [Moles/Vol] 136 mmol/L 136-145 [facility] WBC (Bld) [#/Vol] 14.7 10*3/uL 4.4-11.0 [facility] Determination of erythrocyte mean corpuscular volume (MCV)Ordered By: Carlos Cavazos on 07-18-2023 MCV (RBC) [Entitic vol] 85.4 fL 80-94 [facility] Erythrocyte distribution wid th ratioOrdered By: Carlos Cavazos on 07-18-2023 Erythrocyte distribution width (RBC) [Ratio] 15.1 % 11.6-14.6 [facility] Erythrocyte distribution wid th standard deviationOrdered By: Carlos Cavazos on 07-18-2023 Erythrocyte distribution width (RBC) [Entitic vol] 47.3 fL 35.1-43.9 [facility] Hematocrit Auto (Bld) [Volum e fraction]Ordered By: Carlos Cavazos on 07-18-2023 Hematocrit (Bld) [Volume fraction] 39.3 % 40-54 [facility] Laboratory - Chemistry and C hemistry - challengeOrdered By: Carlos Cavazos on 07-18-2023 CO2 [Moles/Vol] 27.0 mmol/L 21.0-32.0 [facility] Urea nitrogen/Creatinine [Mass ratio] 24.4 mg/mg 10-20 [facility] - Hematology and Cell countsOrdered By: Carlos Cavazos on 07-18-2023 MCH (RBC) [Entitic mass] 26.7 pg 27.0-32.0 [facility] MCHC (RBC) [Mass/Vol] 31.3 g/dL 32-36 [facility] Platelet mean volume (Bld) [Entitic vol] 10.3 fL 6.2-12.0 [facility] Platelets (Bld) [#/Vol] 288 10*3/uL 150-450 [facility] No Panel InformationOrdered By: Carlos Cavazos on 07-18-2023 Estimated GFR (MDRD) Amer 113 mL/min >60 [facility] Comment on above: GFR Calc Estimated GFR (MDRD) Non-Af Amer 93 mL/min >60 [facility] Comment on above: Non- GFR Calc RBC Auto (Bld) [#/Vol]Ordere d By: Carlos Cavazos on 07-18-2023 RBC (Bld) [#/Vol] 4.60 10*6/uL 4.6-6.2 [facility] Serum or plasma calcium oral urement (mass/volume)Ordered By: Carlos Cavazos on 07-18-2023 Calcium [Mass/Vol] 8.9 mg/dL 8.5-10.1 [facility] Serum or plasma creatinine m easurement (mass/volume)Ordered By: Carlos Cavazos on 07-18-2023 Creatinine [Mass/Vol] 0.86 mg/dL 0.70-1.30 [facility] Comment on above: The validity of the calculated GFR & GFRAA in patients over 70 years has not been determined. Clinical correlation is essential. Serum or plasma urea nitroge n measurement (mass/volume)Ordered By: Carlos Cavazos on 07-18-2023 Urea nitrogen [Mass/Vol] 21 mg/dL 7-18 [facility] Thin prep Papanicolaou smear with manual screeningOrdered By: Carlos Cavazos on 07-18-2023 Thin prep Papanicolaou smear with manual screening 7 5-15 [facility] Basophil percentageOrdered B y: Carlos Cavazos on 07-17-2023 Basophil percentage 0-5 SEEN /hpf 0-5 [facility] Bilirubin Test strip Ql (U)O rdered By: Carlos Cavazos on 07-17-2023 Bilirubin Ql (U) Negative Negative [facility] Calcium oxalate crystals det ection in urine sediment by light microscopyOrdered By: Carlos Cavazos on 07-17-2023 Calcium oxalate crystals LM Ql (Urine sed) 1+ /hpf [facility] Culture, urineOrdered By: Sharif Crouch on 07-17-2023 Bacteria identified Cx Nom (U) Positive [facility] Ketones Test strip Ql (U)Ord ered By: Carlos Cavazos on 07-17-2023 Ketones Ql (U) Negative Negative [facility] Mucus LM Ql (Urine sed)Order ed By: Carlos Cavazos on 07-17-2023 Mucus Ql (Urine sed) 0 SEEN /hpf [facility] Nitrite Test strip Ql (U)Ord ered By: Carlos Cavazos on 07-17-2023 Nitrite Ql (U) Negative Negative [facility] No Panel InformationOrdered By: Carlos Cavazos on 07-17-2023 Urine RBC 0 SEEN /hpf 0-5 [facility] Protein Test strip Ql (U)Ord ered By: Carlos Cavazos on 07-17-2023 Protein Ql (U) Negative Negative [facility] Squamous epithelial cells de tection in urine sediment by light microscopyOrdered By: Carlos Cavazos on 07-17-2023 Epithelial cells.squamous LM Ql (Urine sed) 0-5 SEEN /hpf 0-5 [facility] Urine blood detectionOrdered By: Carlos Cavazos on 07-17-2023 RBC Ql (U) Negative Negative [facility] Urine clarityOrdered By: Ted Cavazos on 07-17-2023 Clarity (U) Clear Clear [facility] Urine color determinationOrd ered By: Carlos Cavazos on 07-17-2023 Color (U) Yellow Yellow [facility] Urine glucose detectionOrder ed By: Carlos Cavazos on 07-17-2023 Glucose Ql (U) Normal mg/dl Normal [facility] Urine leukocyte esterase det ection by dipstickOrdered By: Carlos Cavazos on 07-17-2023 Leukocyte esterase Test strip Ql (U) 25 /ul Negative [facility] Urine pHOrdered By: Carlos flores on 07-17-2023 pH (U) 6.0 [pH] 5.0 - 8.0 [facility] Urine sediment bacteria coun t by microscopy (number/high power field)Ordered By: Carlos Cavazos on 07-17-2023 Bacteria LM.HPF (Urine sed) [#/Area] 0 /[HPF] None Seen [facility] Urine specific gravity measu rementOrdered By: Carlos Cavazos on 07-17-2023 Specific gravity (U) [Rel density] 1.020 1.002-1.030 [facility] Urine urobilinogen measureme ntOrdered By: Carlos Cavazos on 07-17-2023 Urobilinogen Ql (U) Normal mg/dl Normal [facility] Absolute lymphocyte countOrd ered By: Carlos Cavazos on 07-16-2023 Lymphocytes Auto (Unsp spec) [#/Vol] 6.02 10*3/uL 0.83-4.51 [facility] Automated lymphocyte count a s percentage of total leukocytesOrdered By: Carlos Cavazos on 07-16-2023 Lymphocytes/100 WBC Auto (Unsp spec) 49.1 % 19-41 [facility] Basophil percentageOrdered B y: Carlos Cavazos on 07-16-2023 Basophils/100 WBC (Bld) 0.6 % 0-1 [facility] Chloride [Moles/Vol] 105 mmol/L 98-107 [facility] Eosinophils/100 WBC (Bld) 2.0 % 0-5 [facility] Glucose [Mass/Vol] 93 mg/dL 74-106 [facility] Hemoglobin (Bld) [Mass/Vol] 12.1 g/dL 13.0-16.5 [facility] Monocytes/100 WBC (Bld) 5.3 % 0-10 [facility] Neutrophils (Bld) [#/Vol] 5.2 10*3/uL 2.0-7.7 [facility] Neutrophils/100 WBC (Bld) 42.8 % 47-70 [facility] Potassium [Moles/Vol] 4.3 mmol/L 3.5-5.1 [facility] Sodium [Moles/Vol] 138 mmol/L 136-145 [facility] WBC (Bld) [#/Vol] 12.3 10*3/uL 4.4-11.0 [facility] Blood manual differential co mment interpretation (narrative result)Ordered By: Carlos Cavazos on 07-16-2023 Manual differential comment Shemar (Bld) [Interp] SCANNED [facility] Determination of erythrocyte mean corpuscular volume (MCV)Ordered By: Carlos Cavazos on 07-16-2023 MCV (RBC) [Entitic vol] 86.8 fL 80-94 [facility] Erythrocyte distribution wid th ratioOrdered By: Carlos Cavazos on 07-16-2023 Erythrocyte distribution width (RBC) [Ratio] 15.3 % 11.6-14.6 [facility] Erythrocyte distribution wid th standard deviationOrdered By: Carlos Cavazos on 07-16-2023 Erythrocyte distribution width (RBC) [Entitic vol] 48.9 fL 35.1-43.9 [facility] Hematocrit Auto (Bld) [Volum e fraction]Ordered By: Carlos Cavazos on 07-16-2023 Hematocrit (Bld) [Volume fraction] 38.7 % 40-54 [facility] Immature granulocytes/100 WB C Auto (Bld)Ordered By: Carlos Cavazos on 07-16-2023 Immature granulocytes/100 WBC (Bld) 0.200 % 0.0-0.9 [facility] Comment on above: IG% - Immature Granu locytes (promyelocytes, myelocytes and metamyelocytes) > 1% indicates that a LEFT SHIFT is Present. Laboratory - Chemistry and C hemistry - challengeOrdered By: Carlos Cavazos on 07-16-2023 CO2 [Moles/Vol] 25.0 mmol/L 21.0-32.0 [facility] Urea nitrogen/Creatinine [Mass ratio] 21.0 mg/mg 10-20 [facility] Laboratory - CoagulationOrde red By: Carlos Cavazos on 07-16-2023 INR Coag (Bld) [Relative time] 2.4 {INR} [facility] PT Coag (PPP) [Time] 25.7 s 11.7-14.9 [facility] Laboratory - Hematology and Cell countsOrdered By: Carlos Cavazos on 07-16-2023 MCH (RBC) [Entitic mass] 27.1 pg 27.0-32.0 [facility] MCHC (RBC) [Mass/Vol] 31.3 g/dL 32-36 [facility] Nucleated RBC/100 WBC (Bld) [Ratio] 0 % 0-5 [facility] Platelet mean volume (Bld) [Entitic vol] 10.5 fL 6.2-12.0 [facility] Platelets (Bld) [#/Vol] 289 10*3/uL 150-450 [facility] No Panel InformationOrdered By: Carlos Cavazos on 07-16-2023 Estimated GFR (MDRD) Amer 106 mL/min >60 [facility] Comment on above: GFR Calc Estimated GFR (MDRD) Non-Af Amer 88 mL/min >60 [facility] Comment on above: Non- GFR Calc Reactive Lymphocytes 1+ [facility] RBC Auto (Bld) [#/Vol]Ordere d By: Carlos Cavazos on 07-16-2023 RBC (Bld) [#/Vol] 4.46 10*6/uL 4.6-6.2 [facility] Serum or plasma calcium oral urement (mass/volume)Ordered By: Carlos Cavazos on 07-16-2023 Calcium [Mass/Vol] 9.0 mg/dL 8.5-10.1 [facility] Serum or plasma creatinine m easurement (mass/volume)Ordered By: Carlos Cavazos on 07-16-2023 Creatinine [Mass/Vol] 0.90 mg/dL 0.70-1.30 [facility] Comment on above: The validity of the calculated GFR & GFRAA in patients over 70 years has not been determined. Clinical correlation is essential. Serum or plasma urea nitroge n measurement (mass/volume)Ordered By: Carlos Cavazos on 07-16-2023 Urea nitrogen [Mass/Vol] 19 mg/dL 7-18 [facility] Thin prep Papanicolaou smear with manual screeningOrdered By: Carlos Cavazos on 07-16-2023 Thin prep Papanicolaou smear with manual screening 8 5-15 [facility] Absolute lymphocyte countOrd ered By: Carlos Cavazos on 07-13-2023 Lymphocytes Auto (Unsp spec) [#/Vol] 5.44 10*3/uL 0.83-4.51 [facility] Automated lymphocyte count a s percentage of total leukocytesOrdered By: Carlos Cavazos on 07-13-2023 Lymphocytes/100 WBC Auto (Unsp spec) 47.3 % 19-41 [facility] Basophil percentageOrdered B y: Carlos Cavazos on 07-13-2023 Basophils/100 WBC (Bld) 0.4 % 0-1 [facility] Chloride [Moles/Vol] 107 mmol/L 98-107 [facility] Eosinophils/100 WBC (Bld) 1.7 % 0-5 [facility] Glucose [Mass/Vol] 96 mg/dL 74-106 [facility] Hemoglobin (Bld) [Mass/Vol] 13.5 g/dL 13.0-16.5 [facility] Monocytes/100 WBC (Bld) 4.3 % 0-10 [facility] Neutrophils (Bld) [#/Vol] 5.3 10*3/uL 2.0-7.7 [facility] Neutrophils/100 WBC (Bld) 46.0 % 47-70 [facility] Potassium [Moles/Vol] 4.0 mmol/L 3.5-5.1 [facility] Sodium [Moles/Vol] 139 mmol/L 136-145 [facility] WBC (Bld) [#/Vol] 11.5 10*3/uL 4.4-11.0 [facility] Determination of erythrocyte mean corpuscular volume (MCV)Ordered By: Carlos Cavazos on 07-13-2023 MCV (RBC) [Entitic vol] 86.1 fL 80-94 [facility] Erythrocyte distribution wid th ratioOrdered By: Carlos Cavazos on 07-13-2023 Erythrocyte distribution width (RBC) [Ratio] 15.2 % 11.6-14.6 [facility] Erythrocyte distribution wid th standard deviationOrdered By: Carlos Cavazos on 07-13-2023 Erythrocyte distribution width (RBC) [Entitic vol] 48.0 fL 35.1-43.9 [facility] Hematocrit Auto (Bld) [Volum e fraction]Ordered By: Carlos Cavazos on 07-13-2023 Hematocrit (Bld) [Volume fraction] 42.2 % 40-54 [facility] Immature granulocytes/100 WB C Auto (Bld)Ordered By: Carlos Cavazos on 07-13-2023 Immature granulocytes/100 WBC (Bld) 0.300 % 0.0-0.9 [facility] Comment on above: IG% - Immature Granu locytes (promyelocytes, myelocytes and metamyelocytes) > 1% indicates that a LEFT SHIFT is Present. Laboratory - Chemistry and C hemistry - challengeOrdered By: Carlos Cavazos on 07-13-2023 CO2 [Moles/Vol] 26.0 mmol/L 21.0-32.0 [facility] Urea nitrogen/Creatinine [Mass ratio] 21.8 mg/mg 10-20 [facility] Laboratory - Hematology and Cell countsOrdered By: Carlos Cavazos on 07-13-2023 MCH (RBC) [Entitic mass] 27.6 pg 27.0-32.0 [facility] MCHC (RBC) [Mass/Vol] 32.0 g/dL 32-36 [facility] Nucleated RBC/100 WBC (Bld) [Ratio] 0 % 0-5 [facility] Platelet mean volume (Bld) [Entitic vol] 10.1 fL 6.2-12.0 [facility] Platelets (Bld) [#/Vol] 279 10*3/uL 150-450 [facility] No Panel InformationOrdered By: Carlos Cavazos on 07-13-2023 Estimated GFR (MDRD) Amer 118 mL/min >60 [facility] Comment on above: GFR Calc Estimated GFR (MDRD) Non-Af Amer 98 mL/min >60 [facility] Comment on above: Non- GFR Calc Levetiracetam (Keppra) Level 25.5 ug/mL 10.0-40.0 [facility] Comment on above: Performed at: - [address] [id number] Director: Alpesh Vázquez MD, Phone: [phone] RBC Auto (Bld) [#/Vol]Ordere d By: Carlos Cavazos on 07-13-2023 RBC (Bld) [#/Vol] 4.90 10*6/uL 4.6-6.2 [facility] Serum or plasma calcium oral urement (mass/volume)Ordered By: Carlos Cvaazos on 07-13-2023 Calcium [Mass/Vol] 9.1 mg/dL 8.5-10.1 [facility] Serum or plasma creatinine m easurement (mass/volume)Ordered By: Carlos Cavazos on 07-13-2023 Creatinine [Mass/Vol] 0.82 mg/dL 0.70-1.30 [facility] Comment on above: The validity of the calculated GFR & GFRAA in patients over 70 years has not been determined. Clinical correlation is essential. Serum or plasma urea nitroge n measurement (mass/volume)Ordered By: Carlos Cavazos on 07-13-2023 Urea nitrogen [Mass/Vol] 18 mg/dL 7-18 [facility] Thin prep Papanicolaou smear with manual screeningOrdered By: Carlos Cavazos on 07-13-2023 Thin prep Papanicolaou smear with manual screening 6 5-15 [facility] No Panel InformationOrdered By: Carlos Cavazos on 07-12-2023 Valproic Acid (Depakene) Level < 3 ug/mL 50-100 [facility] Laboratory - CoagulationOrde red By: Carlos Cavazos on 07-05-2023 INR Coag (Bld) [Relative time] 2.4 {INR} [facility] PT Coag (PPP) [Time] 26.3 s 11.7-14.9 [facility] Laboratory - CoagulationOrde red By: Carlos Cavazos on 07-02-2023 INR Coag (Bld) [Relative time] 1.5 {INR} [facility] PT Coag (PPP) [Time] 18.5 s 11.7-14.9 [facility] Laboratory - CoagulationOrde red By: Carlos Cavazos on 06-28-2023 INR Coag (Bld) [Relative time] 1.7 {INR} [facility] PT Coag (PPP) [Time] 20.5 s 11.7-14.9 [facility] 36on 06-25-2023 36 [facility] called in stating appt scheduled 07/10/23 Guy has to be made further out, pt being transported by cot. Changed appt to 08/13/23 per [facility] only avail time for transport, first avail with DR Buck at 10:00 AM. [facility] Laboratory - CoagulationOrde red By: Carlos Cavazos on 06-25-2023 INR Coag (Bld) [Relative time] 3.8 {INR} [facility] PT Coag (PPP) [Time] 38.2 s 11.7-14.9 [facility] Laboratory - CoagulationOrde red By: Carlos Cavazos on 06-21-2023 INR Coag (Bld) [Relative time] 3.2 {INR} [facility] PT Coag (PPP) [Time] 32.9 s 11.7-14.9 [facility] No Panel InformationOrdered By: Carlos Cavazos on 06-13-2023 Valproic Acid (Depakene) Level < 3 ug/mL 50-100 [facility] - CoagulationOrde red By: Carlos Cavazos on 06-06-2023 PT Coag (PPP) [Time] 30.5 s 11.7-14.9 [facility] Platelet poor plasma interna tional normalized ratio (INR)Ordered By: Carlos Cavazos on 06-06-2023 INR Coag (PPP) [Relative time] 2.9 {INR} [facility] International normalized rat io (INR) calculationOrdered By: Carlos Cavazos on 05-23-2023 INR Coag (PPP) [Relative time] 2.6 {INR} [facility] - CoagulationOrde red By: Carlos Cavazos on 05-23-2023 PT Coag (PPP) [Time] 27.7 s 11.7-14.9 [facility] Laboratory - CoagulationOrde red By: Carlos Cavazos on 05-09-2023 PT Coag (PPP) [Time] 24.1 s 11.7-14.9 [facility] Whole blood international no rmalized ratio (INR)Ordered By: Carlos Cavazos on 05-09-2023 INR Coag (Bld) [Relative time] 2.1 {INR} [facility] - CoagulationOrde red By: Carlos Cavazos on 04-23-2023 PT Coag (PPP) [Time] 26.4 s 11.7-14.9 [facility] Whole blood international no rmalized ratio (INR)Ordered By: Carlos Cavazos on 04-23-2023 INR Coag (Bld) [Relative time] 2.4 {INR} [facility] INR in Blood by Coagulation assayOrdered By: Carlos Cavazos on 04-09-2023 INR Coag (Bld) [Relative time] 2.1 {INR} [facility] - CoagulationOrde red By: Carlos Cavazos on 04-09-2023 PT Coag (PPP) [Time] 23.9 s 11.7-14.9 [facility] INR in Blood by Coagulation assayOrdered By: Carlos Cavazos on 04-02-2023 INR Coag (Bld) [Relative time] 2.2 {INR} [facility] - CoagulationOrde red By: Carlos Cavazos on 04-02-2023 PT Coag (PPP) [Time] 24.5 s 11.7-14.9 [facility] INR in Blood by Coagulation assayOrdered By: Carlos Cavazos on 03-26-2023 INR Coag (Bld) [Relative time] 1.7 {INR} [facility] - CoagulationOrde red By: Carlos Cavazos on 03-26-2023 PT Coag (PPP) [Time] 19.9 s 11.7-14.9 [facility] INR in Blood by Coagulation assayOrdered By: Carlos Cavazos on 03-22-2023 INR Coag (Bld) [Relative time] 1.3 {INR} [facility] - CoagulationOrde red By: Carlos Cavazos on 03-22-2023 PT Coag (PPP) [Time] 16.4 s 11.7-14.9 [facility] INR in Blood by Coagulation assayOrdered By: Carlos Cavazos on 03-08-2023 INR Coag (Bld) [Relative time] 2.0 {INR} [facility] - CoagulationOrde red By: Carlos Cavazos on 03-08-2023 PT Coag (PPP) [Time] 22.5 s 11.7-14.9 [facility] Laboratory - CoagulationOrde red By: Carlos Cavazos on 02-22-2023 INR Coag (Bld) [Relative time] 2.2 {INR} [facility] Comment on above: Critical Value > 4.0 Whole blood prothrombin time Ordered By: Carlos Cavazos on 02-22-2023 PT Coag (Bld) [Time] 24.0 s 11.7-14.9 [facility] INR in Blood by Coagulation assayOrdered By: Cliff Bruner on 02-15-2023 INR Coag (Bld) [Relative time] 2.0 {INR} [facility] - CoagulationOrde red By: Cliff Bruner on 02-15-2023 PT Coag (PPP) [Time] 22.8 s 11.7-14.9 [facility] INR in Blood by Coagulation assayOrdered By: Carlos Cavazos on 02-08-2023 INR Coag (Bld) [Relative time] 2.1 {INR} [facility] - CoagulationOrde red By: Carlos Cavazos on 02-08-2023 PT Coag (PPP) [Time] 23.5 s 11.7-14.9 [facility] INR in Blood by Coagulation assayOrdered By: Carlos Cavazos on 01-31-2023 INR Coag (Bld) [Relative time] 2.0 {INR} [facility] - CoagulationOrde red By: Carlos Cavazos on 01-31-2023 PT Coag (PPP) [Time] 22.4 s 11.7-14.9 [facility] Laboratory - CoagulationOrde red By: Carlos Cavazos on 01-29-2023 INR Coag (Bld) [Relative time] 1.8 {INR} [facility] Comment on above: Critical Value > 4.0 Whole blood prothrombin time Ordered By: Carlos Cavazos on 01-29-2023 PT Coag (Bld) [Time] 19.9 s 11.7-14.9 [facility] INR in Blood by Coagulation assayOrdered By: Carlos Cavazos on 01-26-2023 INR Coag (Bld) [Relative time] 1.5 {INR} [facility] - CoagulationOrde red By: Carlos Cavazos on 01-26-2023 PT Coag (PPP) [Time] 18.3 s 11.7-14.9 [facility] INR in Blood by Coagulation assayOrdered By: Carlos Cavazos on 01-24-2023 INR Coag (Bld) [Relative time] 1.3 {INR} [facility] - CoagulationOrde red By: Carlos Cavazos on 01-24-2023 PT Coag (PPP) [Time] 16.2 s 11.7-14.9 [facility] Basophil percentageOrdered B y: Carlos Cavazos on 01-22-2023 Basophil percentage 0 SEEN /hpf 0-5 [facility] Bilirubin Test strip Ql (U)O rdered By: Carlos Cavazos on 01-22-2023 Bilirubin Ql (U) Negative Negative [facility] Calcium oxalate crystals det ection in urine sediment by light microscopyOrdered By: Carlos Cavazos on 01-22-2023 Calcium oxalate crystals LM Ql (Urine sed) 1+ /hpf [facility] Culture, urineOrdered By: Sharif Crouch on 01-22-2023 Bacteria identified Cx Nom (U) Positive [facility] Ketones Test strip Ql (U)Ord ered By: Carlos Cavazos on 01-22-2023 Ketones Ql (U) Negative Negative [facility] Mucus LM Ql (Urine sed)Order ed By: Carlos Cavazos on 01-22-2023 Mucus Ql (Urine sed) 1+ /hpf [facility] Nitrite Test strip Ql (U)Ord ered By: Carlos Cavazos on 01-22-2023 Nitrite Ql (U) Negative Negative [facility] Protein Test strip Ql (U)Ord ered By: Carlos Cavazos on 01-22-2023 Protein Ql (U) Negative Negative [facility] Squamous epithelial cells de tection in urine sediment by light microscopyOrdered By: Carlos Cavazos on 01-22-2023 Epithelial cells.squamous LM Ql (Urine sed) 0 SEEN /hpf 0-5 [facility] Urine blood detectionOrdered By: Carlos Cavazos on 01-22-2023 RBC Ql (U) Negative Negative [facility] RBC Ql (U) 0 SEEN /hpf 0-5 [facility] Urine clarityOrdered By: Ted Cavazos on 01-22-2023 Clarity (U) Sl. Cloudy Clear [facility] Urine color determinationOrd ered By: Carlos Cavazos on 01-22-2023 Color (U) Yellow Yellow [facility] Urine glucose detectionOrder ed By: Carlos Cavazso on 01-22-2023 Glucose Ql (U) Normal mg/dl Normal [facility] Urine leukocyte esterase det ection by dipstickOrdered By: Carlos Cavazos on 01-22-2023 Leukocyte esterase Test strip Ql (U) Negative Negative [facility] Urine pHOrdered By: Carlos flores on 01-22-2023 pH (U) 5.0 [pH] 5.0 - 8.0 [facility] Urine sediment bacteria coun t by microscopy (number/high power field)Ordered By: Carlos Cavazos on 01-22-2023 Bacteria LM.HPF (Urine sed) [#/Area] 2 /[HPF] None Seen [facility] Urine specific gravity measu rementOrdered By: Carlos Cavazos on 01-22-2023 Specific gravity (U) [Rel density] 1.025 1.002-1.030 [facility] Urobilinogen Auto test strip Ql (U)Ordered By: Carlos Cavazos on 01-22-2023 Urobilinogen Ql (U) Normal mg/dl Normal [facility] INR in Blood by Coagulation assayOrdered By: Carlos Cavazos on 01-10-2023 INR Coag (Bld) [Relative time] 2.0 {INR} [facility] - CoagulationOrde red By: Carlos Cavazos on 01-10-2023 PT Coag (PPP) [Time] 22.6 s 11.7-14.9 [facility] INR in Blood by Coagulation assayOrdered By: Carlos Cavazos on 12-27-2022 INR Coag (Bld) [Relative time] 2.1 {INR} [facility] - CoagulationOrde red By: Carlos Cavazos on 12-27-2022 PT Coag (PPP) [Time] 24.1 s 11.7-14.9 [facility] INR in Blood by Coagulation assayOrdered By: Carlos Cavazos on 12-21-2022 INR Coag (Bld) [Relative time] 2.4 {INR} [facility] - CoagulationOrde red By: Carlos Cavazos on 12-21-2022 PT Coag (PPP) [Time] 26.7 s 11.7-14.9 [facility] - CoagulationOrde red By: Carlos Cavazos on 12-14-2022 INR Coag (Bld) [Relative time] 2.3 {INR} [facility] Comment on above: Critical Value > 4.0 Whole blood prothrombin time Ordered By: Carlos Cavazos on 12-14-2022 PT Coag (Bld) [Time] 25.2 s 11.7-14.9 [facility] Laboratory - CoagulationOrde red By: Carlos Caavzos on 12-07-2022 INR Coag (Bld) [Relative time] 2.5 {INR} [facility] Comment on above: Critical Value > 4.0 Whole blood prothrombin time Ordered By: Carlos Cavazos on 12-07-2022 PT Coag (Bld) [Time] 26.9 s 11.7-14.9 [facility] Amorphous sediment detection in urine sediment by light microscopyOrdered By: Carlos Cavazos on 11-24-2022 Amorphous sediment LM Ql (Urine sed) 1+ [facility] Basophil percentageOrdered B y: Carlos Cavazos on 11-24-2022 Basophil percentage 0 SEEN /hpf 0-5 [facility] Bilirubin [Mass/Vol] 0.30 mg/dL 0.20-1.00 [facility] Comment on above: For patients on eltr ombopag therapy, use of Dimension [place] TBIL is not recommended. Chloride [Moles/Vol] 107 mmol/L 98-107 [facility] Glucose [Mass/Vol] 95 mg/dL 74-106 [facility] Potassium [Moles/Vol] 4.2 mmol/L 3.5-5.1 [facility] Protein [Mass/Vol] 6.9 g/dL 6.4-8.2 [facility] Sodium [Moles/Vol] 138 mmol/L 136-145 [facility] WBC (Bld) [#/Vol] 10.4 10*3/uL 4.4-11.0 [facility] Bilirubin Test strip Ql (U)O rdered By: Carlos Cavazos on 11-24-2022 Bilirubin Ql (U) Negative Negative [facility] Blood erythrocytes count (nu mber/volume)Ordered By: Carlos Cavazos on 11-24-2022 RBC (Bld) [#/Vol] 4.44 10*6/uL 4.6-6.2 [facility] Blood hemoglobin measurement (mass/volume)Ordered By: Carlos Cavazos on 11-24-2022 Hemoglobin (Bld) [Mass/Vol] 11.8 g/dL 13.0-16.5 [facility] Blood platelet mean volumeOr dered By: Carlos Cavazos on 11-24-2022 Platelet mean volume (Bld) [Entitic vol] 9.7 fL 6.2-12.0 [facility] Calcium oxalate crystals det ection in urine sediment by light microscopyOrdered By: Carlos Cavazos on 11-24-2022 Calcium oxalate crystals LM Ql (Urine sed) RARE /hpf [facility] Culture, urineOrdered By: Sharif Crouch on 11-24-2022 Bacteria identified Cx Nom (U) Positive [facility] Determination of erythrocyte mean corpuscular volume (MCV)Ordered By: Carlos Cavazos on 11-24-2022 MCV (RBC) [Entitic vol] 84.7 fL 80-94 [facility] Hematocrit Auto (Bld) [Volum e fraction]Ordered By: Carlos Cavazos on 11-24-2022 Hematocrit (Bld) [Volume fraction] 37.6 % 40-54 [facility] Ketones Test strip Ql (U)Ord ered By: Carlos Cavazos on 11-24-2022 Ketones Ql (U) Negative Negative [facility] - Chemistry and C hemistry - challengeOrdered By: Carlos Cavazos on 11-24-2022 ALP [Catalytic activity/Vol] 103 U/L 45-117 [facility] ALT [Catalytic activity/Vol] 14 U/L 16-61 [facility] CO2 [Moles/Vol] 26.0 mmol/L 21.0-32.0 [facility] Globulin (S) [Mass/Vol] 4.0 g/dL 2.2-4.2 [facility] Urea nitrogen/Creatinine [Mass ratio] 24.1 mg/mg 10-20 [facility] - Hematology and Cell countsOrdered By: Carlos Cavazos on 11-24-2022 Erythrocyte distribution width (RBC) [Entitic vol] 49.4 fL 35.1-43.9 [facility] Erythrocyte distribution width (RBC) [Ratio] 16.0 % 11.6-14.6 [facility] MCH (RBC) [Entitic mass] 26.6 pg 27.0-32.0 [facility] MCHC Auto (RBC) [Mass/Vol]Or dered By: Carlos Cavazos on 11-24-2022 MCHC (RBC) [Mass/Vol] 31.4 g/dL 32-36 [facility] Mucus LM Ql (Urine sed)Order ed By: Carlos Cavazos on 11-24-2022 Mucus Ql (Urine sed) 0 SEEN /hpf [facility] Nitrite Test strip Ql (U)Ord ered By: Carlos Cavazos on 11-24-2022 Nitrite Ql (U) Negative Negative [facility] No Panel InformationOrdered By: Carlos Cavazos on 11-24-2022 Estimated GFR (MDRD) Amer 118 mL/min >60 [facility] Comment on above: GFR Calc Estimated GFR (MDRD) Non-Af Amer 97 mL/min >60 [facility] Comment on above: Non- GFR Calc Platelets bldOrdered By: Pet er Kenny on 11-24-2022 Platelets (Bld) [#/Vol] 309 10*3/uL 150-450 [facility] Protein Test strip Ql (U)Ord ered By: Carlos Cavazos on 11-24-2022 Protein Ql (U) Negative Negative [facility] Serum or plasma albumin oral urement (mass/volume)Ordered By: Carlos Cavazos on 11-24-2022 Albumin [Mass/Vol] 2.9 g/dL 3.2-5.0 [facility] Serum or plasma albumin/glob ulin mass ratioOrdered By: Carlos Cavazos on 11-24-2022 Albumin/Globulin [Mass ratio] 0.7 {ratio} 0.9-2.4 [facility] Serum or plasma calcium oral urement (mass/volume)Ordered By: Carlos Cavazos on 11-24-2022 Calcium [Mass/Vol] 8.7 mg/dL 8.5-10.1 [facility] Serum or plasma creatinine m easurement (mass/volume)Ordered By: Carlos Cavazos on 11-24-2022 Creatinine [Mass/Vol] 0.83 mg/dL 0.70-1.30 [facility] Comment on above: The validity of the calculated GFR & GFRAA in patients over 70 years has not been determined. Clinical correlation is essential. Serum or plasma urea nitroge n measurement (mass/volume)Ordered By: Carlos Cavazos on 11-24-2022 Urea nitrogen [Mass/Vol] 20 mg/dL 7-18 [facility] Squamous epithelial cells de tection in urine sediment by light microscopyOrdered By: Carlos Cavazos on 11-24-2022 Epithelial cells.squamous LM Ql (Urine sed) 0 SEEN /hpf 0-5 [facility] Thin prep Papanicolaou smear with manual screeningOrdered By: Carlos Cavazos on 11-24-2022 Thin prep Papanicolaou smear with manual screening 10 U/L 15-37 [facility] Thin prep Papanicolaou smear with manual screening 5 5-15 [facility] Urine blood detectionOrdered By: Carlos Cavazos on 11-24-2022 RBC Ql (U) Negative Negative [facility] RBC Ql (U) 0 SEEN /hpf 0-5 [facility] Urine clarityOrdered By: Ted Cavazos on 11-24-2022 Clarity (U) Clear Clear [facility] Urine color determinationOrd ered By: Carlos Cavazos on 11-24-2022 Color (U) Yellow Yellow [facility] Urine glucose detectionOrder ed By: Carlos Cavazos on 11-24-2022 Glucose Ql (U) Normal mg/dl Normal [facility] Urine leukocyte esterase det ection by dipstickOrdered By: Carlos Cavazos on 11-24-2022 Leukocyte esterase Test strip Ql (U) Negative Negative [facility] Urine pHOrdered By: Carlos flores on 11-24-2022 pH (U) 7.0 [pH] 5.0 - 8.0 [facility] Urine sediment bacteria coun t by microscopy (number/high power field)Ordered By: Carlos Cavazos on 11-24-2022 Bacteria LM.HPF (Urine sed) [#/Area] 0 /[HPF] None Seen [facility] Urine specific gravity measu rementOrdered By: Carlos Cavazos on 11-24-2022 Specific gravity (U) [Rel density] 1.010 1.002-1.030 [facility] Urobilinogen Auto test strip Ql (U)Ordered By: Carlos Cavazos on 11-24-2022 Urobilinogen Ql (U) Normal mg/dl Normal [facility] - CoagulationOrde red By: Carlos Cavazos on 11-23-2022 INR Coag (Bld) [Relative time] 2.2 {INR} [facility] Comment on above: Critical Value > 4.0 Whole blood prothrombin time Ordered By: Carlos Cavazos on 11-23-2022 PT Coag (Bld) [Time] 24.5 s 11.7-14.9 [facility] Basophil percentageOrdered B y: Carlos Cavazos on 11-22-2022 Chloride [Moles/Vol] 105 mmol/L 98-107 [facility] Glucose [Mass/Vol] 91 mg/dL 74-106 [facility] Potassium [Moles/Vol] 4.1 mmol/L 3.5-5.1 [facility] Sodium [Moles/Vol] 138 mmol/L 136-145 [facility] WBC (Bld) [#/Vol] 12.0 10*3/uL 4.4-11.0 [facility] Blood erythrocytes count (nu mber/volume)Ordered By: Carlos Cavazos on 11-22-2022 RBC (Bld) [#/Vol] 4.65 10*6/uL 4.6-6.2 [facility] Blood hemoglobin measurement (mass/volume)Ordered By: Carlos Cavazos on 11-22-2022 Hemoglobin (Bld) [Mass/Vol] 12.4 g/dL 13.0-16.5 [facility] Blood platelet mean volumeOr dered By: Carlos Cavazos on 11-22-2022 Platelet mean volume (Bld) [Entitic vol] 10.3 fL 6.2-12.0 [facility] Determination of erythrocyte mean corpuscular volume (MCV)Ordered By: Carlos Cavazos on 11-22-2022 MCV (RBC) [Entitic vol] 86.0 fL 80-94 [facility] Hematocrit Auto (Bld) [Volum e fraction]Ordered By: Carlos Cavazos on 11-22-2022 Hematocrit (Bld) [Volume fraction] 40.0 % 40-54 [facility] - Chemistry and C hemistry - challengeOrdered By: Carlos Cavazos on 11-22-2022 CO2 [Moles/Vol] 25.0 mmol/L 21.0-32.0 [facility] Urea nitrogen/Creatinine [Mass ratio] 23.6 mg/mg 10-20 [facility] - Hematology and Cell countsOrdered By: Carlos Cavazos on 11-22-2022 Erythrocyte distribution width (RBC) [Entitic vol] 50.0 fL 35.1-43.9 [facility] Erythrocyte distribution width (RBC) [Ratio] 15.9 % 11.6-14.6 [facility] MCH (RBC) [Entitic mass] 26.7 pg 27.0-32.0 [facility] MCHC Auto (RBC) [Mass/Vol]Or dered By: Carlos Cavazos on 11-22-2022 MCHC (RBC) [Mass/Vol] 31.0 g/dL 32-36 [facility] No Panel InformationOrdered By: Carlos Cavazos on 11-22-2022 Estimated GFR (MDRD) Amer 115 mL/min >60 [facility] Comment on above: GFR Calc Estimated GFR (MDRD) Non-Af Amer 95 mL/min >60 [facility] Comment on above: Non- GFR Calc Platelets bldOrdered By: Ted Cavazos on 11-22-2022 Platelets (Bld) [#/Vol] 320 10*3/uL 150-450 [facility] Serum or plasma calcium oral urement (mass/volume)Ordered By: Carlos Cavazos on 11-22-2022 Calcium [Mass/Vol] 8.7 mg/dL 8.5-10.1 [facility] Serum or plasma creatinine m easurement (mass/volume)Ordered By: Carlos Cavazos on 11-22-2022 Creatinine [Mass/Vol] 0.85 mg/dL 0.70-1.30 [facility] Comment on above: The validity of the calculated GFR & GFRAA in patients over 70 years has not been determined. Clinical correlation is essential. Serum or plasma urea nitroge n measurement (mass/volume)Ordered By: Carlos Cavazos on 11-22-2022 Urea nitrogen [Mass/Vol] 20 mg/dL 7-18 [facility] Thin prep Papanicolaou smear with manual screeningOrdered By: Carlos Cavazos on 11-22-2022 Thin prep Papanicolaou smear with manual screening 8 5-15 [facility] - CoagulationOrde red By: Carlos Cavazos on 11-09-2022 INR Coag (Bld) [Relative time] 2.1 {INR} [facility] Comment on above: Critical Value > 4.0 Whole blood prothrombin time Ordered By: Carlos Cavazos on 11-09-2022 PT Coag (Bld) [Time] 22.6 s 11.7-14.9 [facility] - CoagulationOrde red By: Carlos Cavazos on 10-26-2022 INR Coag (Bld) [Relative time] 2.6 {INR} [facility] Comment on above: Critical Value > 4.0 Whole blood prothrombin time Ordered By: Carlos Cavazos on 10-26-2022 PT Coag (Bld) [Time] 28.5 s 11.7-14.9 [facility] - CoagulationOrde red By: Carlos Cavazos on 10-12-2022 INR Coag (Bld) [Relative time] 2.4 {INR} [facility] Comment on above: Critical Value > 4.0 Whole blood prothrombin time Ordered By: Carlos Cavazos on 10-12-2022 PT Coag (Bld) [Time] 26.4 s 11.7-14.9 [facility] - CoagulationOrde red By: Carlos Cavazos on 10-05-2022 INR Coag (Bld) [Relative time] 2.6 {INR} [facility] Comment on above: Critical Value > 4.0 Whole blood prothrombin time Ordered By: Carlos Cavazos on 10-05-2022 PT Coag (Bld) [Time] 28.0 s 11.7-14.9 [facility] - CoagulationOrde red By: Carlos Cavazos on 09-28-2022 INR Coag (Bld) [Relative time] 2.7 {INR} [facility] Comment on above: Critical Value > 4.0 Whole blood prothrombin time Ordered By: Carlos Cavazos on 09-28-2022 PT Coag (Bld) [Time] 28.9 s 11.7-14.9 [facility] - CoagulationOrde red By: Carlos Cavazos on 09-14-2022 INR Coag (Bld) [Relative time] 2.5 {INR} [facility] Comment on above: Critical Value > 4.0 Whole blood prothrombin time Ordered By: Carlos Cavazos on 09-14-2022 PT Coag (Bld) [Time] 27.4 s 11.7-14.9 [facility] - CoagulationOrde red By: Carlos Cavazos on 08-31-2022 INR Coag (Bld) [Relative time] 2.3 {INR} [facility] Comment on above: Critical Value > 4.0 Whole blood prothrombin time Ordered By: Carlos Cavazos on 08-31-2022 PT Coag (Bld) [Time] 25.4 s 11.7-14.9 [facility] Basophil percentageOrdered B y: Carlos Cavazos on 08-23-2022 Chloride [Moles/Vol] 108 mmol/L 98-107 [facility] Glucose [Mass/Vol] 86 mg/dL 74-106 [facility] Potassium [Moles/Vol] 4.3 mmol/L 3.5-5.1 [facility] Sodium [Moles/Vol] 136 mmol/L 136-145 [facility] WBC (Bld) [#/Vol] 10.0 10*3/uL 4.4-11.0 [facility] Blood erythrocytes count (nu mber/volume)Ordered By: Carlos Cavazos on 08-23-2022 RBC (Bld) [#/Vol] 4.77 10*6/uL 4.6-6.2 [facility] Blood hemoglobin measurement (mass/volume)Ordered By: Carlos Cavazos on 08-23-2022 Hemoglobin (Bld) [Mass/Vol] 12.5 g/dL 13.0-16.5 [facility] Blood platelet mean volumeOr dered By: Carlos Cavazos on 08-23-2022 Platelet mean volume (Bld) [Entitic vol] 11.0 fL 6.2-12.0 [facility] Determination of erythrocyte mean corpuscular volume (MCV)Ordered By: Carlos Cavazos on 08-23-2022 MCV (RBC) [Entitic vol] 84.3 fL 80-94 [facility] Hematocrit Auto (Bld) [Volum e fraction]Ordered By: Carlos Cavazos on 08-23-2022 Hematocrit (Bld) [Volume fraction] 40.2 % 40-54 [facility] - Chemistry and C hemistry - challengeOrdered By: Carlos Cavazos on 08-23-2022 CO2 [Moles/Vol] 24.0 mmol/L 21.0-32.0 [facility] Urea nitrogen/Creatinine [Mass ratio] 22.8 mg/mg 10-20 [facility] - Hematology and Cell countsOrdered By: Carlos Cavazos on 08-23-2022 Erythrocyte distribution width (RBC) [Entitic vol] 49.3 fL 35.1-43.9 [facility] Erythrocyte distribution width (RBC) [Ratio] 16.0 % 11.6-14.6 [facility] MCH (RBC) [Entitic mass] 26.2 pg 27.0-32.0 [facility] Auto (RBC) [Mass/Vol]Or dered By: Carlos Cavazos on 08-23-2022 MCHC (RBC) [Mass/Vol] 31.1 g/dL 32-36 [facility] No Panel InformationOrdered By: Carlos Cavazos on 08-23-2022 Estimated GFR (MDRD) Amer 134 mL/min >60 [facility] Comment on above: GFR Calc Estimated GFR (MDRD) Non-Af Amer 110 mL/min >60 [facility] Comment on above: Non- GFR Calc Platelets bldOrdered By: Pet er Kenny on 08-23-2022 Platelets (Bld) [#/Vol] 268 10*3/uL 150-450 [facility] Serum or plasma calcium oral urement (mass/volume)Ordered By: Carlos Cavazos on 08-23-2022 Calcium [Mass/Vol] 9.1 mg/dL 8.5-10.1 [facility] Serum or plasma creatinine m easurement (mass/volume)Ordered By: Carlos Cavazos on 08-23-2022 Creatinine [Mass/Vol] 0.74 mg/dL 0.70-1.30 [facility] Comment on above: The validity of the calculated GFR & GFRAA in patients over 70 years has not been determined. Clinical correlation is essential. Serum or plasma urea nitroge n measurement (mass/volume)Ordered By: Carlos Cavazos on 08-23-2022 Urea nitrogen [Mass/Vol] 17 mg/dL 7-18 [facility] Thin prep Papanicolaou smear with manual screeningOrdered By: Carlos Cavazos on 08-23-2022 Thin prep Papanicolaou smear with manual screening 4 5-15 [facility] - CoagulationOrde red By: Carlos Cavazos on 08-17-2022 INR Coag (Bld) [Relative time] 2.8 {INR} [facility] Comment on above: Critical Value > 4.0 Whole blood prothrombin time Ordered By: Carlos Cavazos on 08-17-2022 PT Coag (Bld) [Time] 29.6 s 11.7-14.9 [facility] - CoagulationOrde red By: Carlos Cavazos on 08-14-2022 INR Coag (Bld) [Relative time] 3.9 {INR} [facility] Comment on above: Critical Value > 4.0 Whole blood prothrombin time Ordered By: Carlos Cavazos on 08-14-2022 PT Coag (Bld) [Time] 40.6 s 11.7-14.9 [facility] - CoagulationOrde red By: Carlos Cavazos on 07-31-2022 INR Coag (Bld) [Relative time] 2.5 {INR} [facility] Comment on above: Critical Value > 4.0 Whole blood prothrombin time Ordered By: Carlos Cavazos on 07-31-2022 PT Coag (Bld) [Time] 26.8 s 11.7-14.9 [facility] INR in Blood by Coagulation assayOrdered By: Carlos Cavazos on 07-24-2022 INR Coag (Bld) [Relative time] 2.3 {INR} [facility] - CoagulationOrde red By: Carlos Cavazos on 07-24-2022 PT Coag (PPP) [Time] 24.7 s 11.7-14.9 [facility] - CoagulationOrde red By: Carlos Cavazos on 07-20-2022 INR Coag (Bld) [Relative time] 1.9 {INR} [facility] Comment on above: Critical Value > 4.0 Whole blood prothrombin time Ordered By: Carlos Cavazos on 07-20-2022 PT Coag (Bld) [Time] 20.6 s 11.7-14.9 [facility] - CoagulationOrde red By: Carlos Cavazos on 07-17-2022 INR Coag (Bld) [Relative time] 1.3 {INR} [facility] Comment on above: Critical Value > 4.0 Whole blood prothrombin time Ordered By: Carlos Cavazos on 07-17-2022 PT Coag (Bld) [Time] 15.9 s 11.7-14.9 [facility] Basophil percentageOrdered B y: Carlos Cavazos on 07-11-2022 Chloride [Moles/Vol] 105 mmol/L 98-107 [facility] Glucose [Mass/Vol] 97 mg/dL 74-106 [facility] Potassium [Moles/Vol] 3.9 mmol/L 3.5-5.1 [facility] Sodium [Moles/Vol] 140 mmol/L 136-145 [facility] WBC (Bld) [#/Vol] 9.4 10*3/uL 4.4-11.0 [facility] Blood erythrocytes count (nu mber/volume)Ordered By: Carlos Cavazos on 07-11-2022 RBC (Bld) [#/Vol] 4.66 10*6/uL 4.6-6.2 [facility] Blood hemoglobin measurement (mass/volume)Ordered By: Carlos Cavazos on 07-11-2022 Hemoglobin (Bld) [Mass/Vol] 12.0 g/dL 13.0-16.5 [facility] Blood platelet mean volumeOr dered By: Carlos Cavazos on 07-11-2022 Platelet mean volume (Bld) [Entitic vol] 10.4 fL 6.2-12.0 [facility] Determination of erythrocyte mean corpuscular volume (MCV)Ordered By: Carlos Cavazos on 07-11-2022 MCV (RBC) [Entitic vol] 83.7 fL 80-94 [facility] Hematocrit Auto (Bld) [Volum e fraction]Ordered By: Carlos Cavazos on 07-11-2022 Hematocrit (Bld) [Volume fraction] 39.0 % 40-54 [facility] - Chemistry and C hemistry - challengeOrdered By: Carlos Cavazos on 07-11-2022 CO2 [Moles/Vol] 28.0 mmol/L 21.0-32.0 [facility] Urea nitrogen/Creatinine [Mass ratio] 23.0 mg/mg 10-20 [facility] - Hematology and Cell countsOrdered By: Carlos Cavazos on 07-11-2022 Erythrocyte distribution width (RBC) [Entitic vol] 51.0 fL 35.1-43.9 [facility] Erythrocyte distribution width (RBC) [Ratio] 16.8 % 11.6-14.6 [facility] MCH (RBC) [Entitic mass] 25.8 pg 27.0-32.0 [facility] MCHC Auto (RBC) [Mass/Vol]Or dered By: Carlos Cavazos on 07-11-2022 MCHC (RBC) [Mass/Vol] 30.8 g/dL 32-36 [facility] No Panel InformationOrdered By: Carlos Cavazos on 07-11-2022 Estimated GFR (MDRD) Amer 126 mL/min >60 [facility] Comment on above: GFR Calc Estimated GFR (MDRD) Non-Af Amer 104 mL/min >60 [facility] Comment on above: Non- GFR Calc Platelets bldOrdered By: Ted Cavazos on 07-11-2022 Platelets (Bld) [#/Vol] 291 10*3/uL 150-450 [facility] Serum or plasma calcium oral urement (mass/volume)Ordered By: Carlos Cavazos on 07-11-2022 Calcium [Mass/Vol] 9.2 mg/dL 8.5-10.1 [facility] Serum or plasma creatinine m easurement (mass/volume)Ordered By: Carlos Cavazos on 07-11-2022 Creatinine [Mass/Vol] 0.78 mg/dL 0.70-1.30 [facility] Comment on above: The validity of the calculated GFR & GFRAA in patients over 70 years has not been determined. Clinical correlation is essential. Serum or plasma urea nitroge n measurement (mass/volume)Ordered By: Carlos Cavazos on 07-11-2022 Urea nitrogen [Mass/Vol] 18 mg/dL 7-18 [facility] Thin prep Papanicolaou smear with manual screeningOrdered By: Carlos Cavazos on 07-11-2022 Thin prep Papanicolaou smear with manual screening 7 5-15 [facility] - CoagulationOrde red By: Carlos Cavazos on 07-10-2022 INR Coag (Bld) [Relative time] 1.8 {INR} [facility] Comment on above: Critical Value > 4.0 Whole blood prothrombin time Ordered By: Carlos Cavazos on 07-10-2022 PT Coag (Bld) [Time] 21.0 s 11.7-14.9 [facility] - CoagulationOrde red By: Carlos Cavazos on 07-03-2022 INR Coag (Bld) [Relative time] 1.9 {INR} [facility] Comment on above: Critical Value > 4.0 Whole blood prothrombin time Ordered By: Carlos Cavazos on 07-03-2022 PT Coag (Bld) [Time] 22.7 s 11.7-14.9 [facility] INR in Blood by Coagulation assayOrdered By: Carlos Cavazos on 06-27-2022 INR Coag (Bld) [Relative time] 2.9 {INR} [facility] - CoagulationOrde red By: Carlos Cavazos on 06-27-2022 PT Coag (PPP) [Time] 29.9 s 11.7-14.9 [facility] - CoagulationOrde red By: Carlos Cavazos on 06-13-2022 INR Coag (Bld) [Relative time] 2.1 {INR} [facility] Comment on above: Critical Value > 4.0 Whole blood prothrombin time Ordered By: Carlos Cavazos on 06-13-2022 PT Coag (Bld) [Time] 24.4 s 11.7-14.9 [facility] - CoagulationOrde red By: Carlos Cavazos on 06-06-2022 INR Coag (Bld) [Relative time] 1.5 {INR} [facility] Comment on above: Critical Value > 4.0 Whole blood prothrombin time Ordered By: Carlos Cavazos on 06-06-2022 PT Coag (Bld) [Time] 18.4 s 11.7-14.9 [facility] Basophil percentageOrdered B y: Carlos Cavazos on 05-30-2022 Chloride [Moles/Vol] 105 mmol/L 98-107 [facility] Glucose [Mass/Vol] 95 mg/dL 74-106 [facility] Potassium [Moles/Vol] 3.9 mmol/L 3.5-5.1 [facility] Sodium [Moles/Vol] 140 mmol/L 136-145 [facility] WBC (Bld) [#/Vol] 7.6 10*3/uL 4.4-11.0 [facility] Blood erythrocytes count (nu mber/volume)Ordered By: Carlos Cavazos on 05-30-2022 RBC (Bld) [#/Vol] 4.79 10*6/uL 4.6-6.2 [facility] Blood hemoglobin measurement (mass/volume)Ordered By: Carlos Cavazos on 05-30-2022 Hemoglobin (Bld) [Mass/Vol] 12.1 g/dL 13.0-16.5 [facility] Blood platelet mean volumeOr dered By: Carlos Cavazos on 05-30-2022 Platelet mean volume (Bld) [Entitic vol] 10.4 fL 6.2-12.0 [facility] Determination of erythrocyte mean corpuscular volume (MCV)Ordered By: Carlos Cavazos on 05-30-2022 MCV (RBC) [Entitic vol] 82.5 fL 80-94 [facility] Hematocrit Auto (Bld) [Volum e fraction]Ordered By: Carlos Cavazos on 05-30-2022 Hematocrit (Bld) [Volume fraction] 39.5 % 40-54 [facility] INR in Blood by Coagulation assayOrdered By: Carlos Cavazos on 05-30-2022 INR Coag (Bld) [Relative time] 1.9 {INR} [facility] - Chemistry and C hemistry - challengeOrdered By: Carlos Cavazos on 05-30-2022 CO2 [Moles/Vol] 27.0 mmol/L 21.0-32.0 [facility] Urea nitrogen/Creatinine [Mass ratio] 21.4 mg/mg 10-20 [facility] - CoagulationOrde red By: Carlos Cavazos on 05-30-2022 PT Coag (PPP) [Time] 21.6 s 11.7-14.9 [facility] Laboratory - Hematology and Cell countsOrdered By: Carlos Cavazos on 05-30-2022 Erythrocyte distribution width (RBC) [Entitic vol] 48.8 fL 35.1-43.9 [facility] Erythrocyte distribution width (RBC) [Ratio] 16.2 % 11.6-14.6 [facility] MCH (RBC) [Entitic mass] 25.3 pg 27.0-32.0 [facility] MCHC Auto (RBC) [Mass/Vol]Or dered By: Carlos Cavazos on 05-30-2022 MCHC (RBC) [Mass/Vol] 30.6 g/dL 32-36 [facility] No Panel InformationOrdered By: Carlos Cavazos on 05-30-2022 Estimated GFR (MDRD) Amer 133 mL/min >60 [facility] Comment on above: GFR Calc Estimated GFR (MDRD) Non-Af Amer 110 mL/min >60 [facility] Comment on above: Non- GFR Calc Platelets bldOrdered By: Pet noe Cavazos on 05-30-2022 Platelets (Bld) [#/Vol] 308 10*3/uL 150-450 [facility] Serum or plasma calcium oral urement (mass/volume)Ordered By: Carlos Cavazos on 05-30-2022 Calcium [Mass/Vol] 9.1 mg/dL 8.5-10.1 [facility] Serum or plasma creatinine m easurement (mass/volume)Ordered By: Carlos Cavazos on 05-30-2022 Creatinine [Mass/Vol] 0.75 mg/dL 0.70-1.30 [facility] Comment on above: The validity of the calculated GFR & GFRAA in patients over 70 years has not been determined. Clinical correlation is essential. Serum or plasma urea nitroge n measurement (mass/volume)Ordered By: Carlos Cavazos on 05-30-2022 Urea nitrogen [Mass/Vol] 16 mg/dL 7-18 [facility] Thin prep Papanicolaou smear with manual screeningOrdered By: Carlos Cavazos on 05-30-2022 Thin prep Papanicolaou smear with manual screening 8 5-15 [facility] - CoagulationOrde red By: Carlos Cavazos on 05-16-2022 INR Coag (Bld) [Relative time] 2.6 {INR} [facility] Comment on above: Critical Value > 4.0 Whole blood prothrombin time Ordered By: Carlos Cavazos on 05-16-2022 PT Coag (Bld) [Time] 29.9 s 11.7-14.9 [facility] - CoagulationOrde red By: Carlos Cavazos on 05-02-2022 INR Coag (Bld) [Relative time] 2.0 {INR} [facility] Comment on above: Critical Value > 4.0 Whole blood prothrombin time Ordered By: Carlos Cavazos on 05-02-2022 PT Coag (Bld) [Time] 23.2 s 11.7-14.9 [facility] - CoagulationOrde red By: Carlos Cavazos on 04-27-2022 INR Coag (Bld) [Relative time] 2.7 {INR} [facility] Comment on above: Critical Value > 4.0 Whole blood prothrombin time Ordered By: Carlos Cavazos on 04-27-2022 PT Coag (Bld) [Time] 31.1 s 11.7-14.9 [facility] - CoagulationOrde red By: Carlos Cavazos on 04-26-2022 INR Coag (Bld) [Relative time] 2.8 {INR} [facility] Comment on above: Critical Value > 4.0 Whole blood prothrombin time Ordered By: Carlos Cavazos on 04-26-2022 PT Coag (Bld) [Time] 32.6 s 11.7-14.9 [facility] - CoagulationOrde red By: Carlos Cavazos on 04-11-2022 INR Coag (Bld) [Relative time] 2.9 {INR} [facility] Comment on above: Critical Value > 4.0 Whole blood prothrombin time Ordered By: Carlos Cavazos on 04-11-2022 PT Coag (Bld) [Time] 32.8 s 11.7-14.9 [facility] - CoagulationOrde red By: Carlos Cavazos on 03-28-2022 INR Coag (Bld) [Relative time] 2.1 {INR} [facility] Comment on above: Critical Value > 4.0 Whole blood prothrombin time Ordered By: Carlos Cavazos on 03-28-2022 PT Coag (Bld) [Time] 24.8 s 11.7-14.9 [facility] - CoagulationOrde red By: Carlos Cavazos on 03-23-2022 INR Coag (Bld) [Relative time] 1.7 {INR} [facility] Comment on above: Critical Value > 4.0 Whole blood prothrombin time Ordered By: Carlos Cavazos on 03-23-2022 PT Coag (Bld) [Time] 20.9 s 11.7-14.9 [facility] - CoagulationOrde red By: Carlos Cavazos on 03-16-2022 INR Coag (Bld) [Relative time] 1.7 {INR} [facility] Comment on above: Critical Value > 4.0 Whole blood prothrombin time Ordered By: Carlos Cavazos on 03-16-2022 PT Coag (Bld) [Time] 19.9 s 11.7-14.9 [facility] - CoagulationOrde red By: Carlos Cavazso on 03-09-2022 INR Coag (Bld) [Relative time] 1.8 {INR} [facility] Comment on above: Critical Value > 4.0 Whole blood prothrombin time Ordered By: Carlos Cavazos on 03-09-2022 PT Coag (Bld) [Time] 21.9 s 11.7-14.9 [facility] - CoagulationOrde red By: Carlos Cavazos on 03-06-2022 INR Coag (Bld) [Relative time] 1.7 {INR} [facility] Comment on above: Critical Value > 4.0 Whole blood prothrombin time Ordered By: Carlos Cavazos on 03-06-2022 PT Coag (Bld) [Time] 20.0 s 11.7-14.9 [facility] CBC with Auto Differentialon 03-02-2022 Absolute [...] - 10.7 10*3/uL [facility] Test Performed by [facility], [address] [place] [address] [facility] [address] HEAD WO CONTRASTon 2021 Patient Name: ANDREW SIFUENTES Computed Tomography ACCESSION EXAM DATE/TIME PROCEDURE ORDERING PROVIDER [id number] 03/02/2022 13:[address] Head or Brain w/o [id number] -LANETTE MUNGUIA Contrast CPT code 05882 Reason For Exam (CT Head or Brain [...] tubes (parent active on the left for DIRECTOR CARDIAC shunting and disconnected on the right). 2. No definite evidence of acute infarction (MRI more sensitive), mass lesion, nor hemorrhage. Report Dictated on --- Final --- Dictated: 03/02/2022 1:35 pm Dictating Physician: MD GUTIERREZ WILLIAM Signed Date and Time: 03/02/2022 1:39 pm Signed by: MD GUTIERREZ WILLIAM Transcribed Date and Time: 03/02/2022 1:35 [facility] Anant Gutierrez MD - 03/02/2022 Patient Name: ANDREW SIFUENTES Computed Tomography ACCESSION EXAM DATE/TIME PROCEDURE ORDERING PROVIDER [id number] 03/02/2022 13:[address] Head or Brain w/o [id number] -LANETTE MUNGUIA Contrast CPT code 41799 Reason For Exam (CT Head or Brain [...] tubes (parent active on the left for DIRECTOR CARDIAC shunting and disconnected on the right). 2. [...] Tomography ACCESSION EXAM DATE/TIME PROCEDURE ORDERING PROVIDER [id number] 03/02/2022 13:[address] Head or Brain w/o [id number] -LANETTE MUNGUIA Contrast CPT code 72495 Reason For Exam (CT Head or Brain [...] tubes (parent active on the left for DIRECTOR CARDIAC shunting and disconnected on the right). 2. No definite evidence of acute infarction (MRI more sensitive), mass lesion, nor hemorrhage. Report Dictated on Final Dictated: 03/02/2022 1:35 pm Dictating Physician: MD GUTIERREZ WILLIAM Signed Date and Time: 03/02/2022 1:39 pm Signed by: MD GUTIERREZ WILLIAM Transcribed Date and Time: 03/02/2022 1:35 Normal [facility] Comp Metabolic Panelon 03-02 Calcium [Mass/Vol] 9.1 mg/dL Normal 8.4-10.4 [facility] Comment on above: Performed By: #### H TIERA PT, CMP3 ####[address] [place], [place] ALP [Catalytic activity/Vol] 128 U/L High 38-126 [facility] Comment on above: Performed By: #### H TIERA PT, CMP3 ####[address] [place], [place] ALT [Catalytic activity/Vol] 12 U/L Normal 0-49 [facility] Comment on above: Result Comment: The ALT test is performed by an updated assay method. Please note that the reference intervals have been changed and are now sex specific. Performed By: #### H TIERA PT, CMP3 ####[address] [place], [place] Anion gap [Moles/Vol] 7 mmol/L Normal 3-13 [facility] Comment on above: Performed By: #### H TIERA PT, CMP3 ####[address] [place], [place] AST [Catalytic activity/Vol] 24 U/L Normal 15-46 [facility] Comment on above: Performed By: #### H TIERA PT, CMP3 ####[address] [place], [place] Bilirubin [Mass/Vol] 0.4 mg/dL Normal 0.2-1.3 [facility] Comment on above: Performed By: #### H CHRISTEL MOTT CMP3 ####[address] [place], [place] CO2 [Moles/Vol] 27 mmol/L Normal 22-30 [facility] Comment on above: Performed By: #### H CHRISTEL MOTT, CMP3 ####[address] [place], [place] Glucose [Mass/Vol] 109 mg/dL High 70-100 [facility] Comment on above: Performed By: #### H CHRISTEL MOTT CMP3 ####[address] [place], [place] Protein [Mass/Vol] 8.1 g/dL Normal 6.3-8.2 [facility] Comment on above: Performed By: #### H CHRISTEL MOTT CMP3 ####[address] [place], [place] Urea nitrogen [Mass/Vol] 22 mg/dL High 7-17 [facility] Comment on above: Performed By: #### H CHRISTEL MOTT CMP3 ####[address] Creatinine [Mass/Vol] 0.63 mg/dL Normal 0.52-1.25 [facility] Comment on above: Performed By: #### H CHRISTEL MOTT, CMP3 ####[address] [address] [place], [place] eGFR OTHER > 90.0 Normal >60 [facility] Comment on above: Result Comment: KDIG O [...] creatinine secretion. Performed By: #### H CHRISTEL MTOT CMP3 ####[address] [place] [address] GFR/1.73 sq M.predicted among blacks MDRD (S/P/Bld) [Vol rate/Area] mL/min/{1.73_m2} Normal >60 [facility] Comment on above: Performed By: #### H CHRISTEL MOTT CMP3 ####[address] Albumin [Mass/Vol] 4.1 g/dL Normal 3.5-5.0 [facility] Comment on above: Performed By: #### H CHRISTEL MOTT CMP3 ####[address] Chloride [Moles/Vol] 106 mmol/L Normal 98-107 [facility] Comment on above: Performed By: #### H CHRISTEL MOTT CMP3 ####[address] [address] Potassium [Moles/Vol] 3.7 mmol/L Normal 3.5-5.1 [facility] Comment on above: Performed By: #### H CHRISTEL MOTT CMP3 ####[address] [place] [address] Sodium [Moles/Vol] 140 mmol/L Normal 135-145 [facility] Comment on above: Performed By: #### H CHRISTEL MOTT CMP3 ####[address] [address] Comprehensive Metabolic Pane kiel 03-02-2022 Albumin [Mass/Vol] 4.1 g/dL 3.5 - 5.0 g/dL [facility] ALP (Bld) [Catalytic activity/Vol] 128 U/L High 38 - 126 U/L [facility] ALT [Catalytic activity/Vol] 12 U/L 0 - 49 U/L [facility] Comment on above: The ALT test is [...] P INF mL/min [facility] EGFR IF NonAfrican Qatari mL/min 60 - PINF mL/min [facility] Comment [...] [Moles/Vol] 140 mmol/L 135 - 145 mmol/L [facility] Urea nitrogen (BldV) [Mass/Vol] 22 mg/dL High 7 - 17 mg/dL [facility] Test Performed by [facility], [address] [place] [address] [facility] ED Provider Noteon ED Provider Note MERGED WITH [facility] EMERGENCY DEPT EMERGENCY DEPARTMENT ENCOUNTER Pt Name: Andrew Sifuentes Birthdate 1950 Date of evaluation: 03/02/2022 Provider: Lanette Munguia DO CHIEF COMPLAINT Chief Complaint Patient presents with Fall Patient had unwitnessed fall at [facility] landed on butt. Is on thinners, denies LOC, denies head injury has no complaints at this time HISTORY OF PRESENT ILLNESS (Location/Symptom, Timing/Onset, Context/Setting, Quality, Duration, Modifying Factors, Severity) Note limiting factors. I wore a N-95 mask for the entirety of this encounter. Andrew Sifuentes is a 71 y.o. male medical history of hydrocephalus status post DIRECTOR CARDIAC shunt, history of DVT on Coumadin who presents to the emergency department from [facility] home for evaluation following mechanical fall. Patient rolled out of bed. Unwitnessed. Found down on ground by nursing staff. Nonambulatory at baseline. Patient reports he did not hit his head. Has no acute complaints. Denies any pain or traumatic injury. Per nursing protocol at [facility], sent to emergency department due to unwitnessed [...] Hemorrhoids Hydrocephalus, adult (HCC) Kidney stone Neuropathy DIRECTOR CARDIAC (ventriculoperitoneal) shunt status SURGICAL HISTORY Past Surgical [...] CONTRAST R (more content not included)... Normal [facility] Hemogram w/ Autodiffon 03-02 Abs Baso Cnt 0.2 10*3/uL Normal 0.0-0.2 [facility] Comment on above: Performed By: #### H EMDF, PT, CMP3 ####[facility] [place] [address] Abs Neutrophile Cnt 10.7 10*3/uL High 1.8-7.0 [facility] Comment on above: Performed By: #### H EMDF, PT, CMP3 ####[facility] [place] [address] Basophils/100 WBC (Bld) 1.1 % Normal 0.0-2.0 [facility] Comment on above: Performed By: #### H EMDF, PT, CMP3 ####[facility] [place] [address] Eosinophils (Bld) [#/Vol] 0.1 10*3/uL Normal 0.0-0.5 [facility] Comment on above: Performed By: #### H EMDF, PT, CMP3 ####[facility] [place] [address] Eosinophils/100 WBC (Bld) 0.5 % Low 1.0-6.0 [facility] Comment on above: Performed By: #### H EMDF PT, CMP3 ####[address] [place] [address] Granulocytes/100 WBC (Bld) 73.9 % Normal 40.0-80.0 [facility] Comment on above: Performed By: #### H EMDF PT, CMP3 ####[address] [place] [address] Lymphocytes (Bld) [#/Vol] 3.0 10*3/uL Normal 1.0-4.3 [facility] Comment on above: Performed By: #### H TIERA PT, CMP3 ####[address] [address] Lymphocytes/100 WBC (Bld) 20.6 % Normal 20.0-40.0 [facility] Comment on above: Performed By: #### H EMDF PT, CMP3 ####[address] [address] Monocytes (Bld) [#/Vol] 0.6 10*3/uL Normal 0.0-0.8 [facility] Comment on above: Performed By: #### H EMDF PT, CMP3 ####[address] [address] Monocytes/100 WBC (Bld) 3.9 % Normal 2.0-10.0 [facility] Comment on above: Performed By: #### H EMDF PT, CMP3 ####[address] [address] Platelet mean volume (Bld) [Entitic vol] 8.5 fL Normal 7.4-12.4 [facility] Comment on above: Result Comment: MPV is a calculated measurement using platelet volume ratio. Performed By: #### H EMDF PT, CMP3 ####[address] [address] Platelets (Bld) [#/Vol] 411 10*3/uL Normal 140-440 [facility] Comment on above: Performed By: #### H TIERA PT, CMP3 ####[address] Erythrocyte distribution width (RBC) [Ratio] 17.0 % High 11.5-14.5 [facility] Comment on above: Performed By: #### H TIERA PT, CMP3 ####[address] Hematocrit (Bld) [Volume fraction] 37.4 % Low 40.0-52.0 [facility] Comment on above: Performed By: #### H TIERA PT, CMP3 ####[address] Hemoglobin (Bld) [Mass/Vol] 12.1 g/dL Low 13.0-18.0 [facility] Comment on above: Performed By: #### H TIERA PT, CMP3 ####[address] MCH (RBC) [Entitic mass] 26.2 pg Normal 26.0-34.0 [facility] Comment on above: Performed By: #### H TIERA PT, CMP3 ####[address] MCHC 32.3 % Normal 32.0-36.0 [facility] Comment on above: Performed By: #### H TIERA PT, CMP3 ####[address] MCV (RBC) [Entitic vol] 81.1 fL Normal 80.0-98.0 [facility] Comment on above: Performed By: #### H TIERA PT, CMP3 ####[address] RBC (Bld) [#/Vol] 4.61 10*6/uL Normal 4.40-5.90 [facility] Comment on above: Performed By: #### H TIERA PT, CMP3 ####[facility] [id number] [place] [address] WBC (Bld) [#/Vol] 14.5 10*3/uL High 3.6-10.7 [facility] Comment on above: Performed By: #### H EMDF, PT, CMP3 ####[address] [address] Prothrombin Timeon INR 1.9 High 0.9-1.1 [facility] Comment on above: Result Comment: Harry mmended [...] Performed By: #### H EMDF, PT, CMP3 ####[address] [address] PT Coag (PPP) [Time] 18.9 s High 9.0-12.0 [facility] Comment on above: Result Comment: . Performed By: #### H TIERA, PT, CMP3 ####[address] [address] Protime-INRon 03-02-2022 INR Coag (Bld) [Relative time] 1.9 {INR} High [facility] Comment on above: Recommended Anticoag ulant Therapy: [...] review of laboratory results Abnormal [facility] PT Coag (PPP) [Time] 18.9 s High 9.0 - 12.0 s [facility] Comment on above: . Test Performed by [facility], [address] [place] [address] [facility] Laboratory - CoagulationOrde red By: Carlos Cavazos on 02-20-2022 INR Coag (Bld) [Relative time] 2.6 {INR} [facility] Comment on above: Critical Value > 4.0 Whole blood prothrombin time Ordered By: Carlos Cavazos on 02-20-2022 PT Coag (Bld) [Time] 30.1 s 11.7-14.9 [facility] Laboratory - CoagulationOrde red By: Carlos Cavazos on 02-13-2022 INR Coag (Bld) [Relative time] 2.3 {INR} [facility] Comment on above: Critical Value > 4.0 Whole blood prothrombin time Ordered By: Carlos Cavazos on 02-13-2022 PT Coag (Bld) [Time] 26.7 s 11.7-14.9 [facility] Laboratory - CoagulationOrde red By: Carlos Cavazos on 02-06-2022 INR Coag (Bld) [Relative time] 2.3 {INR} [facility] Comment on above: Critical Value > 4.0 Whole blood prothrombin time Ordered By: Carlos Cavaozs on 02-06-2022 PT Coag (Bld) [Time] 26.6 s 11.7-14.9 [facility] Laboratory - Coagulationon 0 01-30-2022 INR Coag (Bld) [Relative time] 1.7 {INR} [facility] Work Phone: Comment on above: Critical Value > 4.0 Whole blood prothrombin time on 01-30-2022 PT Coag (Bld) [Time] 20.1 s 11.7-14.9 [facility] Work Phone: Laboratory - Coagulationon 0 01-26-2022 INR Coag (Bld) [Relative time] 1.8 {INR} [facility] Work Phone: Comment on above: Critical Value > 4.0 Whole blood prothrombin time on 01-26-2022 PT Coag (Bld) [Time] 21.8 s 11.7-14.9 [facility] Work Phone: Laboratory - Coagulationon 0 01-19-2022 INR Coag (Bld) [Relative time] 2.2 {INR} [facility] Work Phone: Comment on above: Critical Value > 4.0 Whole blood prothrombin time on 01-19-2022 PT Coag (Bld) [Time] 25.7 s 11.7-14.9 [facility] Work Phone: INR in Blood by Coagulation assayon 01-10-2022 INR Coag (Bld) [Relative time] 1.8 {INR} [facility] Work Phone: Laboratory - Coagulationon 0 01-10-2022 PT Coag (PPP) [Time] 20.9 s 11.7-14.9 [facility] Work Phone: Basophil percentageon 2021 Chloride [Moles/Vol] 107 mmol/L 98-107 [facility] Work Phone: Glucose [Mass/Vol] 82 mg/dL 74-106 [facility] Work Phone: Potassium [Moles/Vol] 3.4 mmol/L 3.5-5.1 [facility] Work Phone: [phone] Sodium [Moles/Vol] 143 mmol/L 136-145 [facility] Work Phone: [phone] WBC (Bld) [#/Vol] 10.4 10*3/uL 4.4-11.0 [facility] Work Phone: Blood erythrocytes count (nu mber/volume)on 01-05-2022 RBC (Bld) [#/Vol] 4.27 10*6/uL 4.6-6.2 [facility] Work Phone: Blood hemoglobin measurement (mass/volume)on 01-05-2022 Hemoglobin (Bld) [Mass/Vol] 11.2 g/dL 13.0-16.5 [facility] Work Phone: Blood platelet mean volumeon 01-05-2022 Platelet mean volume (Bld) [Entitic vol] 10.3 fL 6.2-12.0 [facility] Work Phone: Determination of erythrocyte mean corpuscular volume (MCV)on 01-05-2022 MCV (RBC) [Entitic vol] 84.8 fL 80-94 [facility] Work Phone: Hematocrit Auto (Bld) [Volum e fraction]on 01-05-2022 Hematocrit (Bld) [Volume fraction] 36.2 % 40-54 [facility] Work Phone: Laboratory - Chemistry and C hemistry - challengeon 01-05-2022 CO2 [Moles/Vol] 28.0 mmol/L 21.0-32.0 [facility] Work Phone: Urea nitrogen/Creatinine [Mass ratio] 20.0 mg/mg 10-20 [facility] Work Phone: Laboratory - Hematology and Cell countson 01-05-2022 Erythrocyte distribution width (RBC) [Entitic vol] 51.8 fL 35.1-43.9 [facility] Work Phone: Erythrocyte distribution width (RBC) [Ratio] 16.8 % 11.6-14.6 [facility] Work Phone: MCH (RBC) [Entitic mass] 26.2 pg 27.0-32.0 [facility] Work Phone: MCHC Auto (RBC) [Mass/Vol]on 01-05-2022 MCHC (RBC) [Mass/Vol] 30.9 g/dL 32-36 [facility] Work Phone: No Panel Informationon 01-05 Estimated GFR (MDRD) Amer 133 mL/min >60 [facility] Work Phone: Comment on above: GFR Calc Estimated GFR (MDRD) Non-Af Amer 110 mL/min >60 [facility] Work Phone: Comment on above: Non- GFR Calc Platelets bldon 01-05-2022 Platelets (Bld) [#/Vol] 373 10*3/uL 150-450 [facility] Work Phone: Serum or plasma calcium oral urement (mass/volume)on 01-05-2022 Calcium [Mass/Vol] 8.8 mg/dL 8.5-10.1 [facility] Work Phone: Serum or plasma creatinine m easurement (mass/volume)on 01-05-2022 Creatinine [Mass/Vol] 0.75 mg/dL 0.70-1.30 [facility] Work Phone: Comment on above: The validity of the calculated GFR & GFRAA in patients over 70 years has not been determined. Clinical correlation is essential. Serum or plasma urea nitroge n measurement (mass/volume)on 01-05-2022 Urea nitrogen [Mass/Vol] 15 mg/dL 7-18 [facility] Work Phone: Thin prep Papanicolaou smear with manual screeningon 01-05-2022 Thin prep Papanicolaou smear with manual screening 8 5-15 [facility] Work Phone: Laboratory - Coagulationon 0 12-30-2021 INR Coag (Bld) [Relative time] 2.0 {INR} [facility] Work Phone: Comment on above: Critical Value > 4.0 Whole blood prothrombin time on 12-30-2021 PT Coag (Bld) [Time] 23.7 s 11.7-14.9 [facility] Work Phone: Basophil percentageon 2021 Chloride [Moles/Vol] 106 mmol/L 98-107 [facility] Work Phone: Glucose [Mass/Vol] 91 mg/dL 74-106 [facility] Work Phone: Potassium [Moles/Vol] 3.4 mmol/L 3.5-5.1 [facility] Work Phone: Sodium [Moles/Vol] 141 mmol/L 136-145 [facility] Work Phone: WBC (Bld) [#/Vol] 10.2 10*3/uL 4.4-11.0 [facility] Work Phone: Blood erythrocytes count (nu mber/volume)on 12-28-2021 RBC (Bld) [#/Vol] 4.22 10*6/uL 4.6-6.2 [facility] Work Phone: Blood hemoglobin measurement (mass/volume)on 12-28-2021 Hemoglobin (Bld) [Mass/Vol] 11.2 g/dL 13.0-16.5 [facility] Work Phone: Blood platelet mean volumeon 12-28-2021 Platelet mean volume (Bld) [Entitic vol] 10.1 fL 6.2-12.0 [facility] Work Phone: Determination of erythrocyte mean corpuscular volume (MCV)on 12-28-2021 MCV (RBC) [Entitic vol] 82.7 fL 80-94 [facility] Work Phone: Hematocrit Auto (Bld) [Volum e fraction]on 12-28-2021 Hematocrit (Bld) [Volume fraction] 34.9 % 40-54 [facility] Work Phone: Laboratory - Chemistry and C hemistry - challengeon 12-28-2021 CO2 [Moles/Vol] 30.0 mmol/L 21.0-32.0 [facility] Work Phone: Urea nitrogen/Creatinine [Mass ratio] 33.7 mg/mg 10-20 [facility] Work Phone: Laboratory - Hematology and Cell countson 12-28-2021 Erythrocyte distribution width (RBC) [Entitic vol] 49.1 fL 35.1-43.9 [facility] Work Phone: Erythrocyte distribution width (RBC) [Ratio] 16.5 % 11.6-14.6 [facility] Work Phone: MCH (RBC) [Entitic mass] 26.5 pg 27.0-32.0 [facility] Work Phone: MCHC Auto (RBC) [Mass/Vol]on 12-28-2021 MCHC (RBC) [Mass/Vol] 32.1 g/dL 32-36 [facility] Work Phone: No Panel Informationon 12-28 Estimated GFR (MDRD) Amer 174 mL/min >60 [facility] Work Phone: Comment on above: GFR Calc Estimated GFR (MDRD) Non-Af Amer 143 mL/min >60 [facility] Work Phone: Comment on above: Non- GFR Calc Platelets bldon 12-28-2021 Platelets (Bld) [#/Vol] 339 10*3/uL 150-450 [facility] Work Phone: Serum or plasma calcium oral urement (mass/volume)on 12-28-2021 Calcium [Mass/Vol] 8.6 mg/dL 8.5-10.1 [facility] Work Phone: Serum or plasma creatinine m easurement (mass/volume)on 12-28-2021 Creatinine [Mass/Vol] 0.59 mg/dL 0.70-1.30 [facility] Work Phone: Comment on above: The validity of the calculated GFR & GFRAA in patients over 70 years has not been determined. Clinical correlation is essential. Serum or plasma urea nitroge n measurement (mass/volume)on 12-28-2021 Urea nitrogen [Mass/Vol] 20 mg/dL 7-18 [facility] Work Phone: Thin prep Papanicolaou smear with manual screeningon 12-28-2021 Thin prep Papanicolaou smear with manual screening 5 5-15 [facility] Work Phone: CULTURE BLOODon 12-27-2021 Microscopic examination of blood, culture CULTURE BLOOD --> Status: F No growth at 5 days. Normal [place] Comment on above: Performed By: #### C /BLD #### [employer] [address] [place] [id number] Laboratory - Coagulationon 0 12-26-2021 INR Coag (Bld) [Relative time] 1.7 {INR} [facility] Work Phone: Comment on above: Critical Value > 4.0 Whole blood prothrombin time on 12-26-2021 PT Coag (Bld) [Time] 20.8 s 11.7-14.9 [facility] Work Phone: Basic Metabolic Panelon 12-05 Calcium [Mass/Vol] 8.8 mg/dL Normal 8.4-10.4 [facility] Comment on above: Performed By: #### C RP2, ESR, HEMDF, BMP3 ####[id number] [place] Anion gap [Moles/Vol] 6 mmol/L Normal 3-13 [facility] Comment on above: Performed By: #### C RP2, ESR, HEMDF, BMP3 ####[place] [place] CO2 [Moles/Vol] 27 mmol/L Normal 22-30 [facility] Comment on above: Performed By: #### C RP2, ESR, HEMDF, BMP3 ####[place] [place], [place] Glucose [Mass/Vol] 100 mg/dL Normal 70-100 [facility] Comment on above: Performed By: #### C RP2, ESR, HEMDF, BMP3 ####[place] [place], [place] Urea nitrogen [Mass/Vol] 18 mg/dL High 7-17 [facility] Comment on above: Performed By: #### C RP2, ESR, HEMDF, BMP3 ####[place] [place], [place] Creatinine [Mass/Vol] 0.73 mg/dL Normal 0.52-1.25 [facility] Comment on above: Performed By: #### C RP2, ESR, HEMDF, BMP3 ####[id number] [place] eGFR OTHER > 90.0 Normal >60 [facility] Comment on above: Result Comment: KDIG O [...] By: #### C RP2, ESR, HEMDF, BMP3 ####[place] [address] [address] [place], [place] GFR/1.73 sq M.predicted among blacks MDRD (S/P/Bld) [Vol rate/Area] mL/min/{1.73_m2} Normal >60 [facility] Comment on above: Performed By: #### C RP2, ESR, HEMDF, BMP3 ####[address] [place], [place] Potassium [Moles/Vol] 3.7 mmol/L Normal 3.5-5.1 [facility] Comment on above: Performed By: #### C RP2, ESR, HEMDF, BMP3 ####[address] [place] [address] Chloride [Moles/Vol] 106 mmol/L Normal 98-107 [facility] Comment on above: Performed By: #### C RP2, ESR, HEMDF, BMP3 ####[address] [place], [place] Sodium [Moles/Vol] 139 mmol/L Normal 135-145 [facility] Comment on above: Performed By: #### C RP2, ESR, HEMDF, BMP3 ####[facility] [place] [address] Anion gap [Moles/Vol] 6 mmol/L 3 - 13 mmol/L [facility] Calcium [Mass/Vol] 8.8 mg/dL 8.4 - 10. 4 mg/dL [facility] Chloride [Moles/Vol] 106 mmol/L 98 - 10 7 mmol/L [facility] CO2 [Moles/Vol] 27 mmol/L 22 - 30 mmol/L [facility] Creatinine [Mass/Vol] 0.73 mg/dL 0.52 - 1.25 mg/dL [facility] eGFR mL/min 60 - P INF mL/min [facility] EGFR IF NonAfrican Qat[place] mL/min 60 - PINF mL/min [facility] Comment [...] 2021 Basophil percentage 25-50 SEEN /hpf 0-5 [facility] Work Phone: Chloride [Moles/Vol] 106 mmol/L 98-[address] [facility] Work Phone: Glucose [Mass/Vol] 93 mg/dL 74-106 [facility] Work Phone: [phone] Potassium [Moles/Vol] 3.5 mmol/L 3.5-5.1 [facility] Work Phone: Sodium [Moles/Vol] 140 mmol/L 136-145 [facility] Work Phone: [phone] WBC (Bld) [#/Vol] 9.6 10*3/uL 4.4-11.0 [facility] Work Phone: Bilirubin Test strip Ql (U)o n 12-22-2021 Bilirubin Ql (U) Negative Negative [facility] Work Phone: Blood erythrocytes count (nu mber/volume)on 12-22-2021 RBC (Bld) [#/Vol] 4.34 10*6/uL 4.6-6.2 [facility]: Blood hemoglobin measurement (mass/volume)on 12-22-2021 Hemoglobin (Bld) [Mass/Vol] 11.5 g/dL 13.0-16.5 [facility] Work Phone: Blood platelet mean volumeon 12-22-2021 Platelet mean volume (Bld) [Entitic vol] 10.8 fL 6.2-12.0 [facility] Work Phone: C-Reactive Proteinon 022 CRP [Mass/Vol] 27.2 mg/L High 0.0-9.9 [facility] [employer] Comment on above: Result Comment: . Performed By: #### C RP2, ESR, HEMDF, BMP3 ####[facility] [address] [place] [address] CRP [Mass/Vol] 27.2 mg/L High 0 - 9.9 mg/L [facility] Comment on above: . CBC with Auto Differentialon 12-22-2021 Absolute Baso # 0.1 10*3/uL 0 - 0.2 10*3/uL [facility] Absolute Neut # 5.9 10*3/uL 1.8 - 7 10*3/uL [facility] Basophils/100 WBC (Bld) 0.7 % 0 - [...] - 10.7 10*3/uL [facility] Test Performed by [facility], [address] [place] [id number] [place] [address] LAB [facility] COVID-19, Flu A/B, and RSV C [facility] 12-22-2021 Influenza A by PCR Not detected [facility] A Influenza B by PCR Not detected [facility] A RSV PCR Not Detected. Expected Result: Not Detected _ Method: Real-time, RT-PCR This assay was developed by [employer] and distributed under an Emergency Use Authorization (EUA) granted by the FDA for the qualitative detection of nucleic acids from SARS-CoV-2, Influenza A, Influenza B, and Respiratory Syncytial Virus. Provider and patient fact sheets can be found at https://www.fda.gov/media /517824/download and https://www.fda.gov/media /578086/download. [facility] SARS-CoV-2 (COVID-19) RNA MEGAN+probe Ql (Unsp spec) Not detected [facility] Test Performed by [address] LAB [facility] CR Foot Complete 3+ Views Le f[place] 12-22-2021 CR Foot Complete 3+ Views Left Patient Name: ANDREW SIFUENTES Diagnostic Radiology ACCESSION EXAM DATE/TIME PROCEDURE ORDERING PROVIDER [id number] 12/22/2021 00:09 EDT CR Foot Complete 3+ SANDY HIDALGO, TRAVIS Views Left CPT code 89701 Reason For Exam (CR Foot Complete 3+ [...] Transcribed Date and Time: 12/22/2021 0:21 Normal [facility] Calcium oxalate crystals det ection in urine sediment by light microscopyon 12-22-2021 Calcium oxalate crystals LM Ql (Urine sed) 1+ /hpf [facility] Work Phone: Determination of erythrocyte mean corpuscular volume (MCV)on 12-22-2021 MCV (RBC) [Entitic vol] 84.3 fL 80-94 [facility] Work Phone: ED Provider Noteon ED [...] leg for a while. According to EMS [facility] staff completed x-ray of the lower extremity and there was concern for osteomyelitis hence transferring patient to the hospital. Patient states this time the wounds on the left lower extremity for extended period of time. He denies fevers or chills. Patient states [facility] staff have been taking care of the wound for him. Focused exam: Blood pressure 108/67, pulse 77, temperature 97.9 ?F (36.6 ?C), temperature source Oral, resp. rate 16, height 5' 9" (1.753 m), weight 79.4 kg (175 lb), SpO2 96 %. [id number] in no acute distress. Alert and oriented [...] are mis-transcribed.) Sharon Olivia MD Acute Care [facility] Sharon Olivia MD 12/22/[address] [facility] ED Provider Note MERGED WITH [facility] EMERGENCY DEPT EMERGENCY DEPARTMENT ENCOUNTER Pt Name: Andrew Sifuentes Birthdate 1950 Date of evaluation: 12/21/2021 Provider: SANIA Lou CHIEF COMPLAINT Chief Complaint Patient presents with Osteomyelitis Patient from [facility], facility did xrays on left lower leg and and have concerns for possible osteomyelitis A&Ox2 to self and place, stated year 2022 [facility] martini HISTORY OF PRESENT ILLNESS (Location/Symptom, Timing/Onset, Context/Setting, Quality,Duration, Modifying Factors, Severity) Note limiting factors. HPI I have seen this patient With supervising physician Does this patient come from an ECF, SNF, Rehab, [facility] or other Congregate setting: no (If yes [...] Hemorrhoids Hydrocephalus, adult (HCC) Kidney stone Neuropathy DIRECTOR CARDIAC (ventriculoperitoneal) shunt status SURGICAL HISTORY Past Surgical [...] use: No Sexual activity: Not Currently SCREENINGS [place] Coma Scale Eye Opening: Spontaneous Best Verbal [...] soft. Tenderness: (more content not included)... Normal [facility] Hematocrit Auto (Bld) [Volum e fraction]on 12-22-2021 Hematocrit (Bld) [Volume fraction] 36.6 % 40-54 [facility] Work Phone: Hemogram w/ Autodiffon 12-22 Abs Baso Cnt 0.1 10*3/uL Normal 0.0-0.2 [facility] Comment on above: Performed By: #### C RP2, ESR, HEMDF, BMP3 ####[facility] [employer] [place] [address] Abs Neutrophile Cnt 5.9 10*3/uL Normal 1.8-7.0 [facility] [employer] [facility] Comment on above: Performed By: #### C RP2, ESR, HEMDF, BMP3 ####[facility] [employer] [address] [place] [address] Basophils/100 WBC (Bld) 0.7 % Normal 0.0-2.0 [facility] Comment on above: Performed By: #### C RP2, ESR, HEMDF, BMP3 ####[address] [place], [place] Eosinophils (Bld) [#/Vol] 0.2 10*3/uL Normal 0.0-0.5 [facility] Comment on above: Performed By: #### C RP2, ESR, HEMDF, BMP3 ####[address] Eosinophils/100 WBC (Bld) 2.3 % Normal 1.0-6.0 [facility] Comment on above: Performed By: #### C RP2, ESR, HEMDF, BMP3 ####[address] Erythrocyte distribution width (RBC) [Ratio] 17.5 % High 11.5-14.5 [facility] Comment on above: Performed By: #### C RP2, ESR, HEMDF, BMP3 ####[address] Granulocytes/100 WBC (Bld) 57.8 % Normal 40.0-80.0 [facility] Comment on above: Performed By: #### C RP2, ESR, HEMDF, BMP3 ####[address] Hematocrit (Bld) [Volume fraction] 33.3 % Low 40.0-52.0 [facility] Comment on above: Performed By: #### C RP2, ESR, HEMDF, BMP3 ####[address] Hemoglobin (Bld) [Mass/Vol] 11.0 g/dL Low 13.0-18.0 [facility] Comment on above: Performed By: #### C RP2, ESR, HEMDF, BMP3 ####[address] Lymphocytes (Bld) [#/Vol] 3.3 10*3/uL Normal 1.0-4.3 [facility] Comment on above: Performed By: #### C RP2, ESR, HEMDF, BMP3 ####[address] [place], [place] Lymphocytes/100 WBC (Bld) 33.0 % Normal 20.0-40.0 [facility] Comment on above: Performed By: #### C RP2, ESR, HEMDF, BMP3 ####[address] MCH (RBC) [Entitic mass] 26.5 pg Normal 26.0-34.0 [facility] Comment on above: Performed By: #### C RP2, ESR, HEMDF, BMP3 ####[address] [place], [place] MCHC 33.1 % Normal 32.0-36.0 [facility] Comment on above: Performed By: #### C RP2, ESR, HEMDF, BMP3 ####[address] MCV (RBC) [Entitic vol] 80.2 fL Normal 80.0-98.0 [facility] Comment on above: Performed By: #### C RP2, ESR, HEMDF, BMP3 ####[address] [place], [place] Monocytes (Bld) [#/Vol] 0.6 10*3/uL Normal 0.0-0.8 [facility] Comment on above: Performed By: #### C RP2, ESR, HEMDF, BMP3 ####[address] Monocytes/100 WBC (Bld) 6.2 % Normal 2.0-10.0 [facility] Comment on above: Performed By: #### C RP2, ESR, HEMDF, BMP3 ####[address] Platelet mean volume (Bld) [Entitic vol] 8.0 fL Normal 7.4-12.4 [facility] Comment on above: Result Comment: MPV is a calculated measurement using platelet volume ratio. Performed By: #### C RP2, ESR, HEMDF, BMP3 ####[facility] [employer] [place], [place] Platelets (Bld) [#/Vol] 368 10*3/uL Normal 140-440 [facility] Comment on above: Performed By: #### C RP2, ESR, HEMDF, BMP3 ####[facility] [employer] [place], [place] RBC (Bld) [#/Vol] 4.15 10*6/uL Low 4.40-5.90 [facility] Comment on above: Performed By: #### C RP2, ESR, HEMDF, BMP3 ####[facility] [employer] [place], [place] WBC (Bld) [#/Vol] 10.1 10*3/uL Normal 3.6-10.7 [facility] Comment on above: Performed By: #### C RP2, ESR, HEMDF, BMP3 ####[address] [place], [place] Ketones Test strip Ql (U)on 12-22-2021 Ketones Ql (U) Negative Negative [facility] Work Phone: Laboratory - Chemistry and C hemistry - challengeon 12-22-2021 CO2 [Moles/Vol] 27.0 mmol/L 21.0-32.0 [facility] Work Phone: Urea nitrogen/Creatinine [Mass ratio] 22.5 mg/mg 10-20 [facility] Work Phone: Laboratory - Hematology and Cell countson 12-22-2021 Erythrocyte distribution width (RBC) [Entitic vol] 49.1 fL 35.1-43.9 [facility] Work Phone: Erythrocyte distribution width (RBC) [Ratio] 16.1 % 11.6-14.6 [facility] Work Phone: MCH (RBC) [Entitic mass] 26.5 pg 27.0-32.0 [facility] Work Phone: MCHC Auto (RBC) [Mass/Vol]on 12-22-2021 MCHC (RBC) [Mass/Vol] 31.4 g/dL 32-36 [facility] Work Phone: Mucus LM Ql (Urine sed)on Mucus Ql (Urine sed) 0 SEEN /hpf [facility] Work Phone: Nitrite Test strip Ql (U)on 12-22-2021 Nitrite Ql (U) Positive Negative [facility] Work Phone: No Panel Informationon 12-22 Estimated GFR (MDRD) Amer 152 mL/min >60 [facility] Work Phone: Comment on above: GFR Calc Estimated GFR (MDRD) Non-Af Amer 125 mL/min >60 [facility] Work Phone: Comment on above: Non- GFR Calc Interpretation and review of laboratory results Abnormal [facility] Test Performed by [facility], [address] [place] [address] [facility] Platelets bldon 12-22-2021 Platelets (Bld) [#/Vol] 317 10*3/uL 150-450 [facility] Work Phone: Protein Test strip Ql (U)on 12-22-2021 Protein Ql (U) 30 mg/dl Negative [facility] Work Phone: SARS-CoV-2, Flu A/B and RSVo n 12-22-2021 SARS-CoV-2 (COVID-19) RNA MEGAN+probe Ql (Unsp spec) SARS-CoV-2 --> Status: F Not Detected. Flu A PCR --> Status: F Not Detected. Flu B PCR --> Status: F Not Detected. RSV PCR --> Status: F Not Detected. Expected Result: Not Detected _ Method: Real-time, RT-PCR This assay was developed by [employer] and distributed under an Emergency Use Authorization (EUA) granted by the FDA for the qualitative detection of nucleic acids from SARS-CoV-2, Influenza A, Influenza B, and Respiratory Syncytial Virus. Provider and patient fact sheets can be found at https://www.fda.gov/media /649639/download and https://www.fda.gov/media /530574/download. Expected Result: Not Detected _ Method: Real-time, RT-PCR This assay was developed by [employer] and distributed under an Emergency Use Authorization (EUA) granted by the FDA for the qualitative detection of nucleic acids from SARS-CoV-2, Influenza A, Influenza B, and Respiratory Syncytial Virus. Provider and patient fact sheets can be found at https://www.fda.gov/media /994469/download and https://www.fda.gov/media /596372/download. Normal [facility] Comment on above: Performed By: #### C VFLR ####[facility] [place] [address], [address] Sed Rateon 12-22-2021 Sed Rate 48 mm/h High 0-10 [facility] Comment on above: Performed By: #### C RP2, ESR, HEMDF, BMP3 ####[address] [place] [address] Sedimentation Rateon 022 Interpretation and review of laboratory results Abnormal [facility] Sed Rate 48 mm/h High 0 - 10 mm/h [facility] Test Performed by [facility], [facility] [place] [address] [facility] Serum or plasma calcium oral urement (mass/volume)on 12-22-2021 Calcium [Mass/Vol] 8.6 mg/dL 8.5-10.1 [facility] Work Phone: Serum or plasma creatinine m easurement (mass/volume)on 12-22-2021 Creatinine [Mass/Vol] 0.67 mg/dL 0.70-1.30 [facility] Work Phone: Comment on above: The validity of the calculated GFR & GFRAA in patients over 70 years has not been determined. Clinical correlation is essential. Serum or plasma urea nitroge n measurement (mass/volume)on 12-22-2021 Urea nitrogen [Mass/Vol] 15 mg/dL -18 [facility] Work Phone: Squamous epithelial cells de tection in urine sediment by light microscopyon 12-22-2021 Epithelial cells.squamous LM Ql (Urine sed) 0-5 SEEN /hpf 0-5 [facility] Work Phone: Thin prep Papanicolaou smear with manual screeningon 12-22-2021 Thin prep Papanicolaou smear with manual screening 7 5-15 [facility] Work Phone: Urine blood detectionon 12-05 RBC Ql (U) 150 /ul Negative [facility] Work Phone: RBC Ql (U) 10-25 SEEN /hpf 0-5 [facility] Work Phone: Urine clarityon 12-22-2021 Clarity (U) Sl. Cloudy Clear [facility] Work Phone: Urine color determinationon 12-22-2021 Color (U) Yellow Yellow [facility] Work Phone: Urine glucose detectionon Glucose Ql (U) Normal mg/dl Normal [facility] Work Phone: Urine leukocyte esterase det ection by dipstickon 12-22-2021 Leukocyte esterase Test strip Ql (U) 500 /ul Negative [facility] Work Phone: Urine pHon 12-22-2021 pH (U) 6.0 [pH] 5.0 - 8.0 [facility] Work Phone: Urine sediment bacteria coun t by microscopy (number/high power field)on 12-22-2021 Bacteria LM.HPF (Urine sed) [#/Area] 2 /[HPF] None Seen [facility] Work Phone: Urine specific gravity measu rementon 12-22-2021 Specific gravity (U) [Rel density] 1.020 1.002-1.030 [facility] Work Phone: Urobilinogen Auto test strip Ql (U)on 12-22-2021 Urobilinogen Ql (U) Normal mg/dl Normal [facility] Work Phone: XR FOOT LEFT (MIN 3 VIEWS)on 12-22-2021 Patient Name: ANDREW SIFUENTES Diagnostic Radiology ACCESSION EXAM DATE/TIME PROCEDURE ORDERING PROVIDER [id number] 12/22/2021 00:09 EDT CR Foot Complete 3+ SANDY HIDALGO JOHN M Views Left CPT code 72994 Reason For Exam (CR Foot Complete 3+ [...] JEFFREY Transcribed Date and Time: 12/22/2021 0:21 [facility] Albert Solano MD - 12/22/2021 Patient Name: ANDREW SIFUENTES Diagnostic Radiology ACCESSION EXAM DATE/TIME PROCEDURE ORDERING PROVIDER [id number] 12/22/2021 00:09 EDT CR Foot Complete 3+ SANDY HIDALGO JOHN M Views Left CPT code 18904 Reason For Exam (CR Foot Complete 3+ [...] JEFFREY Transcribed Date and Time: 12/22/2021 0:21 [facility] Work Phone: Radiology Study observation (narrative) [facility] Work Phone: XR FOOT LEFT (MIN 3 VIEWS)Or dered By: Albert Solano on 12-22-2021 [facility] Work Phone: Basophil percentageon 2021 Chloride [Moles/Vol] 103 mmol/L 98-107 [facility] Work Phone: Glucose [Mass/Vol] 92 mg/dL 74-106 [facility] Work Phone: [phone] Potassium [Moles/Vol] 3.5 mmol/L 3.5-5.1 [facility] Work Phone: Sodium [Moles/Vol] 138 mmol/L 136-145 [facility] Work Phone: WBC (Bld) [#/Vol] 11.2 10*3/uL 4.4-11.0 [facility] Work Phone: Blood erythrocytes count (nu mber/volume)on 12-19-2021 RBC (Bld) [#/Vol] 4.50 10*6/uL 4.6-6.2 [facility] Work Phone: Blood hemoglobin measurement (mass/volume)on 12-19-2021 Hemoglobin (Bld) [Mass/Vol] 12.2 g/dL 13.0-16.5 [facility] Work Phone: Blood platelet mean volumeon 12-19-2021 Platelet mean volume (Bld) [Entitic vol] 11.3 fL 6.2-12.0 [facility] Work Phone: Determination of erythrocyte mean corpuscular volume (MCV)on 12-19-2021 MCV (RBC) [Entitic vol] 85.6 fL 80-94 [facility] Work Phone: Hematocrit Auto (Bld) [Volum e fraction]on 12-19-2021 Hematocrit (Bld) [Volume fraction] 38.5 % 40-54 [facility] Work Phone: Laboratory - Chemistry and C hemistry - challengeon 12-19-2021 CO2 [Moles/Vol] 30.0 mmol/L 21.0-32.0 [facility] Work Phone: Urea nitrogen/Creatinine [Mass ratio] 27.1 mg/mg 10-20 [facility] Work Phone: Laboratory - Hematology and Cell countson 12-19-2021 Erythrocyte distribution width (RBC) [Entitic vol] 50.5 fL 35.1-43.9 [facility] Work Phone: Erythrocyte distribution width (RBC) [Ratio] 16.0 % 11.6-14.6 [facility] Work Phone: MCH (RBC) [Entitic mass] 27.1 pg 27.0-32.0 [facility] Work Phone: MCHC Auto (RBC) [Mass/Vol]on 12-19-2021 MCHC (RBC) [Mass/Vol] 31.7 g/dL 32-36 [facility] Work Phone: No Panel Informationon 12-19 Estimated GFR (MDRD) Amer 153 mL/min >60 [facility] Work Phone: Comment on above: GFR Calc Estimated GFR (MDRD) Non-Af Amer 126 mL/min >60 [facility] Work Phone: Comment on above: Non- GFR Calc Platelets bldon 12-19-2021 Platelets (Bld) [#/Vol] 363 10*3/uL 150-450 [facility] Work Phone: Serum or plasma calcium oral urement (mass/volume)on 12-19-2021 Calcium [Mass/Vol] 9.5 mg/dL 8.5-10.1 [facility] Work Phone: Serum or plasma creatinine m easurement (mass/volume)on 12-19-2021 Creatinine [Mass/Vol] 0.66 mg/dL 0.70-1.30 [facility] Work Phone: Comment on above: The validity of the calculated GFR & GFRAA in patients over 70 years has not been determined. Clinical correlation is essential. Serum or plasma urea nitroge n measurement (mass/volume)on 12-19-2021 Urea nitrogen [Mass/Vol] 18 mg/dL 7-18 [facility] Work Phone: Thin prep Papanicolaou smear with manual screeningon 12-19-2021 Thin prep Papanicolaou smear with manual screening 5 5-15 [facility] Work Phone: Laboratory - Coagulationon 0 12-12-2021 INR Coag (Bld) [Relative time] 2.0 {INR} [facility] Work Phone: Comment on above: Critical Value > 4.0 Whole blood prothrombin time on 12-12-2021 PT Coag (Bld) [Time] 23.9 s 11.7-14.9 [facility] Work Phone: ANES POSTPROC EVALon 022 ANES POSTPROC EVAL Normal [facility] Laboratory - Coagulationon 0 12-08-2021 INR Coag (Bld) [Relative time] 1.8 {INR} [facility] Work Phone: Comment on above: Critical Value > 4.0 Whole blood prothrombin time on 12-08-2021 PT Coag (Bld) [Time] 21.0 s 11.7-14.9 [facility] Work Phone: Absolute lymphocyte counton 12-05-2021 Lymphocytes Auto (Unsp spec) [#/Vol] 2.97 10*3/uL 0.83-4.51 [facility] Work Phone: Basophil percentageon 2021 Basophils/100 WBC (Bld) 0.6 % 0-1 [facility] Work Phone: Chloride [Moles/Vol] 106 mmol/L 98-107 [facility] Work Phone: [phone] Eosinophils/100 WBC (Bld) 2.3 % 0-5 [facility] Work Phone: [phone] Glucose [Mass/Vol] 107 mg/dL 74-106 [facility] Work Phone: Comment on above: Fasting Glucose resu lt from 100 to 125 mg/dL suggests IMPAIRED HOMEOSTASIS per A.D.A. criteria. Neutrophils (Bld) [#/Vol] 5.6 10*3/uL 2.0-7.7 [facility] Work Phone: Neutrophils/100 WBC (Bld) 60.2 % 47-70 [facility] Work Phone: Potassium [Moles/Vol] 3.4 mmol/L 3.5-5.1 [facility] Work Phone: [phone] Sodium [Moles/Vol] 139 mmol/L 136-145 [facility] Work Phone: [phone] WBC (Bld) [#/Vol] 9.3 10*3/uL 4.4-11.0 [facility] Work Phone: Blood erythrocytes count (nu mber/volume)on 12-05-2021 RBC (Bld) [#/Vol] 4.49 10*6/uL 4.6-6.2 [facility] Work Phone: Blood hemoglobin measurement (mass/volume)on 12-05-2021 Hemoglobin (Bld) [Mass/Vol] 12.1 g/dL 13.0-16.5 [facility] Work Phone: Blood lymphocytes/100 leukoc yteson 12-05-2021 Lymphocytes/100 WBC (Bld) 32.0 % 19-41 [facility] Work Phone: Blood monocytes/100 leukocyt eson 12-05-2021 Monocytes/100 WBC (Bld) 4.7 % 0-10 [facility] Work Phone: Blood platelet mean volumeon 12-05-2021 Platelet mean volume (Bld) [Entitic vol] 10.8 fL 6.2-12.0 [facility] [facility] Work Phone: Determination of erythrocyte mean corpuscular volume (MCV)on 12-05-2021 MCV (RBC) [Entitic vol] 84.9 fL 80-94 [facility] Work Phone: Hematocrit Auto (Bld) [Volum e fraction]on 12-05-2021 Hematocrit (Bld) [Volume fraction] 38.1 % 40-54 [facility] Work Phone: INR in Blood by Coagulation assayon 12-05-2021 INR Coag (Bld) [Relative time] 1.8 {INR} [facility] Work Phone: Laboratory - Chemistry and C hemistry - challengeon 12-05-2021 CO2 [Moles/Vol] 29.0 mmol/L 21.0-32.0 [facility] Work Phone: Urea nitrogen/Creatinine [Mass ratio] 25.4 mg/mg 10-20 [facility] Work Phone: Laboratory - Coagulationon 0 12-05-2021 PT Coag (PPP) [Time] 20.5 s 11.7-14.9 [facility] Work Phone: Laboratory - Hematology and Cell countson 12-05-2021 Erythrocyte distribution width (RBC) [Entitic vol] 48.5 fL 35.1-43.9 [facility] Work Phone: Erythrocyte distribution width (RBC) [Ratio] 15.7 % 11.6-14.6 [facility] Work Phone: Immature granulocytes/100 WBC (Bld) 0.200 % 0.0-0.9 [facility] Work Phone: Comment on above: IG% - Immature Granu locytes (promyelocytes, myelocytes and metamyelocytes) > 1% indicates that a LEFT SHIFT is Present. MCH (RBC) [Entitic mass] 26.9 pg 27.0-32.0 [facility] Work Phone: Nucleated RBC/100 WBC (Bld) [Ratio] 0 % 0-5 [facility] Work Phone: MCHC Auto (RBC) [Mass/Vol]on 12-05-2021 MCHC (RBC) [Mass/Vol] 31.8 g/dL 32-36 [facility] Work Phone: No Panel Informationon 12-05 Estimated GFR (MDRD) Amer 133 mL/min >60 [facility] Work Phone: Comment on above: GFR Calc Estimated GFR (MDRD) Non-Af Amer 110 mL/min >60 [facility] Work Phone: Comment on above: Non- GFR Calc Platelets bldon 12-05-2021 Platelets (Bld) [#/Vol] 363 10*3/uL 150-450 [facility] Work Phone: Serum or plasma calcium oral urement (mass/volume)on 12-05-2021 Calcium [Mass/Vol] 9.4 mg/dL 8.5-10.1 [facility] Work Phone: Serum or plasma creatinine m easurement (mass/volume)on 12-05-2021 Creatinine [Mass/Vol] 0.75 mg/dL 0.70-1.30 [facility] Work Phone: Comment on above: The validity of the calculated GFR & GFRAA in patients over 70 years has not been determined. Clinical correlation is essential. Serum or plasma urea nitroge n measurement (mass/volume)on 12-05-2021 Urea nitrogen [Mass/Vol] 19 mg/dL 7-18 [facility] Work Phone: Thin prep Papanicolaou smear with manual screeningon 12-05-2021 Thin prep Papanicolaou smear with manual screening 4 5-15 [facility] Work Phone: Basophil percentageon 2021 Basophil percentage 0 SEEN /hpf 0-5 [facility] Work Phone: Chloride [Moles/Vol] 104 mmol/L 98-107 [facility] Work Phone: Glucose [Mass/Vol] 90 mg/dL 74-106 [facility] Work Phone: Potassium [Moles/Vol] 3.7 mmol/L 3.5-5.1 [facility] Work Phone: Comment on above: Slight Hemolysis, Re sult may be falsely increased. Sodium [Moles/Vol] 138 mmol/L 136-145 [facility] Work Phone: WBC (Bld) [#/Vol] 10.7 10*3/uL 4.4-11.0 [facility] Work Phone: Bilirubin Test strip Ql (U)o n 12-01-2021 Bilirubin Ql (U) Negative Negative [facility] Work Phone: Blood erythrocytes count (nu mber/volume)on 12-01-2021 RBC (Bld) [#/Vol] 4.33 10*6/uL 4.6-6.2 [facility] Work Phone: Blood hemoglobin measurement (mass/volume)on 12-01-2021 Hemoglobin (Bld) [Mass/Vol] 11.6 g/dL 13.0-16.5 [facility] Work Phone: Blood platelet mean volumeon 12-01-2021 Platelet mean volume (Bld) [Entitic vol] 11.2 fL 6.2-12.0 [facility] Work Phone: Determination of erythrocyte mean corpuscular volume (MCV)on 12-01-2021 MCV (RBC) [Entitic vol] 85.2 fL 80-94 [facility] Work Phone: Hematocrit Auto (Bld) [Volum e fraction]on 12-01-2021 Hematocrit (Bld) [Volume fraction] 36.9 % 40-54 [facility] Work Phone: Ketones Test strip Ql (U)on 12-01-2021 Ketones Ql (U) Negative Negative [facility] Work Phone: Laboratory - Chemistry and C hemistry - challengeon 12-01-2021 CO2 [Moles/Vol] 27.0 mmol/L 21.0-32.0 [facility] Work Phone: Urea nitrogen/Creatinine [Mass ratio] 24.0 mg/mg 10-20 [facility] Work Phone: Laboratory - Coagulationon 0 12-01-2021 INR Coag (Bld) [Relative time] 1.6 {INR} [facility] Work Phone: Comment on above: Critical Value > 4.0 Laboratory - Hematology and Cell countson 12-01-2021 Erythrocyte distribution width (RBC) [Entitic vol] 47.9 fL 35.1-43.9 [facility] Work Phone: Erythrocyte distribution width (RBC) [Ratio] 15.5 % 11.6-14.6 [facility] Work Phone: MCH (RBC) [Entitic mass] 26.8 pg 27.0-32.0 [facility] Work Phone: MCHC Auto (RBC) [Mass/Vol]on 12-01-2021 MCHC (RBC) [Mass/Vol] 31.4 g/dL 32-36 [facility] Work Phone: Mucus LM Ql (Urine sed)on Mucus Ql (Urine sed) 0 SEEN /hpf [facility] Work Phone: Nitrite Test strip Ql (U)on 12-01-2021 Nitrite Ql (U) Negative Negative [facility] Work Phone: No Panel Informationon 12-01 Estimated GFR (MDRD) Amer 133 mL/min >60 [facility] Work Phone: Comment on above: GFR Calc Estimated GFR (MDRD) Non-Af Amer 110 mL/min >60 [facility] Work Phone: Comment on above: Non- GFR Calc Platelets bldon 12-01-2021 Platelets (Bld) [#/Vol] 336 10*3/uL 150-450 [facility] Work Phone: Protein Test strip Ql (U)on 12-01-2021 Protein Ql (U) 30 mg/dl Negative [facility] Work Phone: Serum or plasma calcium oral urement (mass/volume)on 12-01-2021 Calcium [Mass/Vol] 9.4 mg/dL 8.5-10.1 [facility] Work Phone: Serum or plasma creatinine m easurement (mass/volume)on 12-01-2021 Creatinine [Mass/Vol] 0.75 mg/dL 0.70-1.30 [facility] Work Phone: Comment on above: The validity of the calculated GFR & GFRAA in patients over 70 years has not been determined. Clinical correlation is essential. Serum or plasma urea nitroge n measurement (mass/volume)on 12-01-2021 Urea nitrogen [Mass/Vol] 18 mg/dL 7-18 [facility] Work Phone: Squamous epithelial cells de tection in urine sediment by light microscopyon 12-01-2021 Epithelial cells.squamous LM Ql (Urine sed) 0-5 SEEN /hpf 0-5 [facility] Work Phone: Thin prep Papanicolaou smear with manual screeningon 12-01-2021 Thin prep Papanicolaou smear with manual screening 7 5-15 [facility] Work Phone: Urine blood detectionon 11-05 RBC Ql (U) Negative Negative [facility] Work Phone: RBC Ql (U) 0 SEEN /hpf 0-5 [facility] Work Phone: Urine clarityon 12-01-2021 Clarity (U) Clear Clear [facility] Work Phone: Urine color determinationon 12-01-2021 Color (U) Yellow Yellow [facility] Work Phone: Urine glucose detectionon Glucose Ql (U) 50 mg/dl Normal [facility] Work Phone: Urine leukocyte esterase det ection by dipstickon 12-01-2021 Leukocyte esterase Test strip Ql (U) Negative Negative [facility] Work Phone: Urine pHon 12-01-2021 pH (U) 6.0 [pH] 5.0 - 8.0 [facility] Work Phone: Urine sediment bacteria coun t by microscopy (number/high power field)on 12-01-2021 Bacteria LM.HPF (Urine sed) [#/Area] 0 /[HPF] None Seen [facility] Work Phone: Urine sediment yeast count b y microscopy (number/high powered field)on 12-01-2021 Yeast LM.HPF (Urine sed) [#/Area] 2 /[HPF] None Seen [facility] Work Phone: Urine specific gravity measu rementon 12-01-2021 Specific gravity (U) [Rel density] 1.010 1.002-1.030 [facility] Work Phone: Urobilinogen Auto test strip Ql (U)on 12-01-2021 Urobilinogen Ql (U) Normal mg/dl Normal [facility] Work Phone: Whole blood prothrombin time on 12-01-2021 PT Coag (Bld) [Time] 19.8 s 11.7-14.9 [facility] Work Phone: Laboratory - Coagulationon 0 11-28-2021 INR Coag (Bld) [Relative time] 1.6 {INR} [facility] Work Phone: Comment on above: Critical Value > 4.0 Whole blood prothrombin time on 11-28-2021 PT Coag (Bld) [Time] 18.8 s 11.7-14.9 [facility] Work Phone: INR in Blood by Coagulation assayon 11-23-2021 INR Coag (Bld) [Relative time] 2.7 {INR} [facility] Work Phone: Laboratory - Coagulationon 0 11-23-2021 PT Coag (PPP) [Time] 28.0 s 11.7-14.9 [facility] Work Phone: Laboratory - Coagulationon 0 11-22-2021 INR Coag (Bld) [Relative time] 3.8 {INR} [facility] Work Phone: Comment on above: Critical Value > 4.0 Whole blood prothrombin time on 11-22-2021 PT Coag (Bld) [Time] 42.8 s 11.7-14.9 [facility] Work Phone: INR in Blood by Coagulation assayon 11-21-2021 INR Coag (Bld) [Relative time] 3.9 {INR} [facility] Work Phone: Laboratory - Coagulationon 0 11-21-2021 PT Coag (PPP) [Time] 37.7 s 11.7-14.9 [facility] Work Phone: Whole blood prothrombin time on 11-21-2021 PT Coag (Bld) [Time] 45.5 s 11.7-14.9 [facility] Work Phone: INR in Blood by Coagulation assayon 11-14-2021 INR Coag (Bld) [Relative time] 3.1 {INR} [facility] Work Phone: Laboratory - Coagulationon 0 11-14-2021 PT Coag (PPP) [Time] 31.4 s 11.7-14.9 [facility] Work Phone: Laboratory - Coagulationon 0 11-08-2021 INR Coag (Bld) [Relative time] 2.5 {INR} [facility] Work Phone: Comment on above: Critical Value > 4.0 Whole blood prothrombin time on 11-08-2021 PT Coag (Bld) [Time] 29.0 s 11.7-14.9 [facility] Work Phone: Basophil percentageon 2021 Chloride [Moles/Vol] 106 mmol/L 98-107 [facility] Work Phone: Glucose [Mass/Vol] 100 mg/dL 74-106 [facility] Work Phone: Comment on above: Fasting Glucose resu lt from 100 to 125 mg/dL suggests IMPAIRED HOMEOSTASIS per A.D.A. criteria. Potassium [Moles/Vol] 3.7 mmol/L 3.5-5.1 [facility] Work Phone: Sodium [Moles/Vol] 140 mmol/L 136-145 [facility] Work Phone: WBC (Bld) [#/Vol] 8.8 10*3/uL 4.4-11.0 [facility] Work Phone: Blood erythrocytes count (nu mber/volume)on 11-04-2021 RBC (Bld) [#/Vol] 4.05 10*6/uL 4.6-6.2 [facility] Work Phone: Blood hemoglobin measurement (mass/volume)on 11-04-2021 Hemoglobin (Bld) [Mass/Vol] 11.1 g/dL 13.0-16.5 [facility] Work Phone: Blood platelet mean volumeon 11-04-2021 Platelet mean volume (Bld) [Entitic vol] 10.8 fL 6.2-12.0 [facility] Work Phone: Determination of erythrocyte mean corpuscular volume (MCV)on 11-04-2021 MCV (RBC) [Entitic vol] 86.9 fL 80-94 [facility] Work Phone: Hematocrit Auto (Bld) [Volum e fraction]on 11-04-2021 Hematocrit (Bld) [Volume fraction] 35.2 % 40-54 [facility] Work Phone: INR in Blood by Coagulation assayon 11-04-2021 INR Coag (Bld) [Relative time] 1.8 {INR} [facility] Work Phone: Laboratory - Chemistry and C hemistry - challengeon 11-04-2021 CO2 [Moles/Vol] 26.0 mmol/L 21.0-32.0 [facility] Work Phone: Urea nitrogen/Creatinine [Mass ratio] 18.3 mg/mg 10-20 [facility] Work Phone: Laboratory - Coagulationon 0 11-04-2021 PT Coag (PPP) [Time] 20.4 s 11.7-14.9 [facility] Work Phone: Laboratory - Hematology and Cell countson 11-04-2021 Erythrocyte distribution width (RBC) [Entitic vol] 48.1 fL 35.1-43.9 [facility] Work Phone: Erythrocyte distribution width (RBC) [Ratio] 15.0 % 11.6-14.6 [facility] Work Phone: MCH (RBC) [Entitic mass] 27.4 pg 27.0-32.0 [facility] Work Phone: MCHC Auto (RBC) [Mass/Vol]on 11-04-2021 MCHC (RBC) [Mass/Vol] 31.5 g/dL 32-36 [facility] Work Phone: No Panel Informationon 11-04 D-Dimer Quantitative (PE/DVT) 0.56 FEU/ug/m 0.27-0.49 [facility] Work Phone: Comment on above: D-Dimer ELEVATED (>0 .49): Additional studies and clinicalassessments are indicated to conclude diagnosis of:Deep Vein Thrombosis (DVT) or Pulmonary Embolism (PE) Estimated GFR (MDRD) Amer 155 mL/min >60 [facility] Work Phone: Comment on above: GFR Calc Estimated GFR (MDRD) Non-Af Amer 128 mL/min >60 [facility] Work Phone: Comment on above: Non- GFR Calc Troponin I High Sensitivity 11 pg/mL 3.0-78.0 [facility] Work Phone: Comment on above: Please Note: New [place] t Units and Gender Specific Reference Ranges. For more information see Policy Stat Procedure [place] High Sensitivity Troponin (TNIH) and attachments. Platelets bldon 11-04-2021 Platelets (Bld) [#/Vol] 364 10*3/uL 150-450 [facility] Work Phone: Serum or plasma C reactive p rotein measurement (mass/volume)on 11-04-2021 CRP [Mass/Vol] 31.90 mg/L 0.0-3.0 [facility] Work Phone: Comment on above: C-Reactive Protein ( CRP) provides useful information for thediagnosis, therapy and monitoring of inflammatory processesand associated diseases. For the evaluation of Relative Riskfor Cardiovascular Disease, a High Sensitivity CRP (HSCRP)should be ordered. Serum or plasma calcium oral urement (mass/volume)on 11-04-2021 Calcium [Mass/Vol] 9.1 mg/dL 8.5-10.1 [facility] Work Phone: Serum or plasma creatinine m easurement (mass/volume)on 11-04-2021 Creatinine [Mass/Vol] 0.66 mg/dL 0.70-1.30 [facility] Work Phone: Comment on above: The validity of the calculated GFR & GFRAA in patients over 70 years has not been determined. Clinical correlation is essential. Serum or plasma urea nitroge n measurement (mass/volume)on 11-04-2021 Urea nitrogen [Mass/Vol] 12 mg/dL 7-18 [facility] Work Phone: Thin prep Papanicolaou smear with manual screeningon 11-04-2021 Thin prep Papanicolaou smear with manual screening 8 5-15 [facility] Work Phone: Complete Urinalysison 2021 Appearance (U) Clear Normal Clear [facility] Comment on above: Result Comment: . Performed By: #### C UA2 ####[facility] [employer] [id number] [place], [place] Bacteria Moderate Abnormal Negative [facility] Comment on above: Result Comment: . Performed By: #### C UA2 ####[facility] [employer] [id number] [place], [place] Bilirubin,Urine Negative Normal Negative [facility] Comment on above: Result Comment: . Performed By: #### C UA2 ####[facility] [employer] [id number] [place], [place] Cast, Hyaline Negative Normal Negative [facility] Comment on above: Result Comment: . Performed By: #### C UA2 ####[employer] [id number] [place], [place] Color (U) Yellow Normal Lt. Yellow [facility] Comment on above: Result Comment: . Performed By: #### C UA2 ####[employer] [employer] [id number] [place], [place] Glucose Ql (U) Normal Normal Normal (<70) [facility] Comment on above: Result Comment: . Performed By: #### C UA2 ####[employer] [id number] [place], [place] Ketone,Urine Negative Normal Negative [facility] Comment on above: Result Comment: . Performed By: #### C UA2 ####[facility] [employer] [id number] [place], [place] Leukocytes,Urine Negative Normal Negative [facility] Comment on above: Result Comment: . Performed By: #### C UA2 ####[employer] [id number] [place], [place] Mucous Threads Few Normal Negative [facility] Comment on above: Result Comment: . Performed By: #### C UA2 ####[id number] [place], [place] Nitrites,Urine Negative Normal Negative [facility] Comment on above: Result Comment: . Performed By: #### C UA2 ####[address] Occult Blood,Urine 0.1 mg/dL Abnormal Negative [facility] Comment on above: Result Comment: . Performed By: #### C UA2 ####[address] pH,Urine 5.5 Normal 5.0-8.0 [facility] Comment on above: Result Comment: . Performed By: #### C UA2 ####[address] Protein (U) [Mass/Vol] 10 mg/dL Abnormal Negative [facility] Comment on above: Result Comment: . Performed By: #### C UA2 ####[address] RBC, Urine 26 - 50 Abnormal 0-2 [facility] Comment on above: Result Comment: . Performed By: #### C UA2 ####[address] Specific [place],Urine 1.023 Normal 1.005 - 1.030 [facility] Comment on above: Result Comment: . Performed By: #### C UA2 ####[address] Squamous Epithelial Negative Normal 3-5 [facility] Comment on above: Result Comment: . Performed By: #### C UA2 ####[address] Urobilinogen,Urine Normal Normal Normal (0-1) [facility] Comment on above: Result Comment: . Performed By: #### C UA2 ####[address] WBC, Urine 0 - 2 Normal 0-5 [facility] Comment on above: Result Comment: . Performed By: #### C UA2 ####[facility] [place] [address] Urinalysison 11-01-2021 Appearance (U) Clear Clear NA [...] Protein (U) [Mass/Vol] 10 mg/dL Abnormal Negative [facility] Comment on above: . RBC, UA 26-50 Abnormal 0 - 2 /[HPF] [facility] Comment on above: . Specific [place], Urine 1.023 [facility] Comment on above: . Squam Epithel, UA Negative 3 - 5 /[HPF] [facility] Comment on above: . Urobilinogen, Urine Normal Normal ( 0-1) mg/dL [facility] Comment on above: . WBC, UA 0-2 0 - 5 /[HPF] [facility] Comment on above: . Test Performed by [facility], [address] [place] [address] [facility] Basic Metabolic Panelon 10-06 Anion gap [Moles/Vol] 6 mmol/L Normal 3-13 [facility] Comment on above: Performed By: #### P T/AP, TROPN, BMP3, HEMDF #### [facility] [address] [place] [address] Calcium [Mass/Vol] 9.1 mg/dL Normal 8.4-10.4 [facility] Comment on above: Performed By: #### P T/AP, TROPN, BMP3, HEMDF #### [address] [place], [place] CO2 [Moles/Vol] 28 mmol/L Normal 22-30 [facility] Comment on above: Performed By: #### P T/AP, TROPN, BMP3, HEMDF #### [address] [place], [place] Glucose [Mass/Vol] 120 mg/dL High 70-100 [facility] Comment on above: Performed By: #### P T/AP, TROPN, BMP3, HEMDF #### [address] [place], [place] Urea nitrogen [Mass/Vol] 17 mg/dL Normal 7-17 [facility] Comment on above: Performed By: #### P T/AP, TROPN, BMP3, HEMDF #### [address] [place], [place] Creatinine [Mass/Vol] 0.65 mg/dL Normal 0.52-1.25 [facility] Comment on above: Performed By: #### P T/AP, TROPN, BMP3, HEMDF #### [address] [place], [place] eGFR OTHER > 90.0 Normal >60 [facility] Comment on above: Result Comment: KDIG O [...] #### P T/AP, TROPN, BMP3, HEMDF #### [address] [place], [place] GFR/1.73 sq M.predicted among blacks MDRD (S/P/Bld) [Vol rate/Area] mL/min/{1.73_m2} Normal >60 [facility] Comment on above: Performed By: #### P T/AP, TROPN, BMP3, HEMDF #### [address] [place], [place] Potassium [Moles/Vol] 3.8 mmol/L Normal 3.5-5.1 [facility] Comment on above: Performed By: #### P T/AP, TROPN, BMP3, HEMDF #### [address] [place], [place] Chloride [Moles/Vol] 101 mmol/L Normal 98-107 [facility] Comment on above: Performed By: #### P T/AP, TROPN, BMP3, HEMDF #### [address] [place], [place] Sodium [Moles/Vol] 134 mmol/L Low 135-145 [facility] Comment on above: Performed By: #### P T/AP, TROPN, BMP3, HEMDF #### [address] [place], [place] Anion gap [Moles/Vol] 6 mmol/L 3 - 13 mmol/L [facility] Calcium [Mass/Vol] 9.1 mg/dL 8.4 - 10. 4 mg/dL [facility] Chloride [Moles/Vol] 101 mmol/L 98 - 10 7 mmol/L [facility] CO2 [Moles/Vol] 28 mmol/L 22 - 30 mmol/L [facility] Creatinine [Mass/Vol] 0.65 mg/dL 0.52 - 1.25 mg/dL [facility] EGFR IF NonAfrican [place] >90.0 >60 mL/min [facility] Comment on above: KDIGO guidelines pro vide [...] - 17 mg/dL [facility] Test Performed by [id number] [place] [address] LAB [facility] CBC with Auto Differentialon 10-31-2021 [...] - 10.7 10*3/uL [facility] Test Performed by [facility], [address] [place] [id number] [place] [address] LAB [facility] CR Abdomen APon 10-31-2021 CR Abdomen AP Patient Name: ANDREW SIFUENTES Diagnostic Radiology ACCESSION EXAM DATE/TIME PROCEDURE ORDERING PROVIDER [id number] 10/31/2021 20:36 EDT CR Abdomen AP [id number] -MYRON DURAN CPT code 96273 Reason For Exam (CR Abdomen AP) vp scientific affairs shunt, 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 CHEST PORTABLE [...] Transcribed Date and Time: 10/31/2021 8:49 Normal [facility] CR Chest Portableon 11-01-19 CR Chest Portable Patient Name: ANDREW SIFUENTES Diagnostic Radiology ACCESSION EXAM DATE/TIME PROCEDURE ORDERING PROVIDER [id number] 10/31/2021 20:36 EDT CR Chest Portable [id number] MYRON GALINDO CPT code 17444 Reason For Exam (CR Chest Portable) AMS [...] Transcribed Date and Time: 10/31/2021 8:49 Normal [facility] CT HEAD WO CONTRASTon 2021 Patient Name: ANDREW SIFUENTES Computed Tomography ACCESSION EXAM DATE/TIME PROCEDURE ORDERING PROVIDER [id number] 10/31/2021 20:[address] Head or Brain w/o [id number] -DURAN, MYRON Contrast CPT code 08365 Reason For Exam (CT Head or Brain w/o Contrast) AMS, previous DIRECTOR CARDIAC shunt Report Examination: CT Head Clinical Information: AMS, previous DIRECTOR CARDIAC shunt Comparison: 10/26/2021, MRI 10/27/2021 Findings: Serial [...] J Transcribed Date and Time: 10/31/2021 8:54 [facility] Carla Wong MD - 10/31/2021 Patient Name: ANDREW SIFUENTES Computed Tomography ACCESSION EXAM DATE/TIME PROCEDURE ORDERING PROVIDER [id number] 10/31/2021 20:[address] Head or Brain w/o [id number] -MYRON DURAN Contrast CPT code 42301 Reason For Exam (CT Head or Brain w/o Contrast) AMS, previous DIRECTOR CARDIAC shunt Report Examination: CT Head Clinical Information: AMS, previous DIRECTOR CARDIAC shunt Comparison: 10/26/2021, MRI 10/27/2021 Findings: Serial [...] Dictated: 10/31/2021 8:54 pm Dictating Physician: MD ESTEE, CARLA Machuca Signed Date and Time: 10/31/2021 8:58 pm Signed by: MD WONG ANTHONY J Transcribed Date and Time: 10/31/2021 8:54 [facility] Work Phone: CT HEAD WO CONTRASTOrdered B y: Carla Wong on 10-31-2021 [facility] Work Phone: CT Head or Brain w/o Contras ton 10-31-2021 CT Head or Brain w/o Contrast Patient [facility]: [id number] Computed Tomography ACCESSION EXAM DATE/TIME PROCEDURE ORDERING PROVIDER [id number] 10/31/2021 20:[address] Head or Brain w/o [id number] -ROGER MYRON Contrast CPT code 02299 Reason For Exam (CT Head or Brain w/o Contrast) AMS, previous DIRECTOR CARDIAC shunt Report Examination: CT Head Clinical Information: AMS, previous DIRECTOR CARDIAC shunt Comparison: 10/26/2021, MRI 10/27/2021 Findings: Serial [...] Transcribed Date and Time: 10/31/2021 8:54 Normal [facility] ED Provider Noteon ED Provider Note Emergency Department Encounter MERGED WITH [facility] EM[facility]GENCY [facility]PT Patient: Andrew Sifuentes : [...] is cooperative and calm. According to the ch[facility], he has been more lethargic than normal, [...] Solutions Dante Kim MD 10/31/21 2211 Normal [facility] ED Provider Note MERGED WITH [facility] EM[facility]PT EMERGENCY DEPARTMENT ENCOUNTER Pt Name: Andrew Sifuentes Birthdate 1950 Date of evaluation: 10/31/2021 Provider: Myron Duran MD CHIEF COMPLAINT Chief Complaint Patient presents with ? Altered Mental Status Pt presents to ED via [facility] for complaint listed. Pt is from [facility]. Pt's LKW was 1000 hours today. Per [...] have a history of hydrocephalus with a DIRECTOR CARDIAC shunt. 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 REVIEW OF [...] (HCC) ? Kidney stone ? Neuropathy ? DIRECTOR CARDIAC (ventriculoperitoneal) shunt status SURGICAL HISTORY Past Surgical [...] of Transportati (more content not included)... 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 Die: ANDRES : 1950 Requested By: MYRON DURAN Order Number: [id number] Reading MD: Dante Kim Measurements Intervals Williams Rate: 91 P: 41 NJ: 154 QRS: 50 QRSD: 147 T: 8 QT: 385 QTc: 474 Interpretive Statements Sinus rhythm Right bundle branch block Electronically Signed On 10-31-2021 20:36:25 EDT by Dante Kim MERGED WITH [facility] Dante Kim M D - 10/31/2021 [facility] Test Date: 2021-10-31 Pat Name: ANDREW SIFUENTES Department: 1AER Room: 40 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: M 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 Die: WILFREDAshu : 1950 Requested By: MYRON DURAN Order Number: [id number] Reading MD: Dante Kim Measurements Intervals Williams Rate: 91 P: 41 NJ: 154 QRS: 50 QRSD: 147 T: 8 QT: 385 QTc: 474 Interpretive Statements Sinus rhythm Right bundle branch block Electronically Signed On 10-31-2021 20:36:25 EDT by Dante Kim [facility] Work Phone: EKG 12 Lead - Chest PainOrde red By: Dante Kim on 10-31-2021 [facility] Work Phone: Hemogram w/ Autodiffon 10-31 Abs Baso Cnt 0.1 10*3/uL Normal 0.0-0.2 [facility] Comment on above: Performed By: #### P T/AP, TROPN, BMP3, HEMDF #### [facility] [address] [place] [address] Abs Neutrophile Cnt 6.0 10*3/uL Normal 1.8-7.0 [facility] Comment on above: Performed By: #### P T/AP, TROPN, BMP3, HEMDF #### [facility] [facility] [address] [place] [address] Basophils/100 WBC (Bld) 1.1 % Normal 0.0-2.0 [facility] Comment on above: Performed By: #### P T/AP, TROPN, BMP3, HEMDF #### [place] [address], [place] Eosinophils (Bld) [#/Vol] 0.2 10*3/uL Normal 0.0-0.5 [facility] Comment on above: Performed By: #### P T/AP, TROPN, BMP3, HEMDF #### [place] [address] [place], [place] Eosinophils/100 WBC (Bld) 2.3 % Normal 1.0-6.0 [facility] Comment on above: Performed By: #### P T/AP, TROPN, BMP3, HEMDF #### [place] [address] [place], [place] Erythrocyte distribution width (RBC) [Ratio] 17.2 % High 11.5-14.5 [facility] Comment on above: Performed By: #### P T/AP, TROPN, BMP3, HEMDF #### [place] [address] [place], [place] Granulocytes/100 WBC (Bld) 61.8 % Normal 40.0-80.0 [facility] Comment on above: Performed By: #### P T/AP, TROPN, BMP3, HEMDF #### [place] [address] [place], [place] Hematocrit (Bld) [Volume fraction] 35.0 % Low 40.0-52.0 [facility] Comment on above: Performed By: #### P T/AP, TROPN, BMP3, HEMDF #### [place] [address] [place], [place] Hemoglobin (Bld) [Mass/Vol] 11.3 g/dL Low 13.0-18.0 [facility] Comment on above: Performed By: #### P T/AP, TROPN, BMP3, HEMDF #### [place] [address] [place], [place] Lymphocytes (Bld) [#/Vol] 2.8 10*3/uL Normal 1.0-4.3 [facility] Comment on above: Performed By: #### P T/AP, TROPN, BMP3, HEMDF #### [place] [address] [place], [place] Lymphocytes/100 WBC (Bld) 29.2 % Normal 20.0-40.0 [facility] Comment on above: Performed By: #### P T/AP, TROPN, BMP3, HEMDF #### [place] [address] [place], [place] MCH (RBC) [Entitic mass] 27.5 pg Normal 26.0-34.0 [facility] Comment on above: Performed By: #### P T/AP, TROPN, BMP3, HEMDF #### [address] MCHC 32.3 % Normal 32.0-36.0 [facility] Comment on above: Performed By: #### P T/AP, TROPN, BMP3, HEMDF #### [address] MCV (RBC) [Entitic vol] 85.0 fL Normal 80.0-98.0 [facility] Comment on above: Performed By: #### P T/AP, TROPN, BMP3, HEMDF #### [address] Monocytes (Bld) [#/Vol] 0.5 10*3/uL Normal 0.0-0.8 [facility] Comment on above: Performed By: #### P T/AP, TROPN, BMP3, HEMDF #### [address] Monocytes/100 WBC (Bld) 5.6 % Normal 2.0-10.0 [facility] Comment on above: Performed By: #### P T/AP, TROPN, BMP3, HEMDF #### [address] Platelet mean volume (Bld) [Entitic vol] 8.6 fL Normal 7.4-12.4 [facility] Comment on above: Result Comment: MPV is a calculated measurement using platelet volume ratio. Performed By: #### P T/AP, TROPN, BMP3, HEMDF #### [facility] [address] [place], [place] Platelets (Bld) [#/Vol] 348 10*3/uL Normal 140-440 [facility] Comment on above: Performed By: #### P T/AP, TROPN, BMP3, HEMDF #### [facility] [address] [place], [place] RBC (Bld) [#/Vol] 4.12 10*6/uL Low 4.40-5.90 [facility] Comment on above: Performed By: #### P T/AP, TROPN, BMP3, HEMDF #### [place] [address] [address], [place] WBC (Bld) [#/Vol] 9.7 10*3/uL Normal 3.6-10.7 [facility] Comment on above: Performed By: #### P T/AP, TROPN, BMP3, HEMDF #### [facility] [address] [place], [place] Laboratory - Coagulationon 0 10-31-2021 INR Coag (Bld) [Relative time] 2.0 {INR} [facility] Work Phone: Comment on above: Critical Value > 4.0 No Panel Informationon 10-31 Radiology Study observation (narrative) [facility] Work Phone: PROTIME/INR & PTTon 11-01-19 22 aPTT Coag (Bld) [Time] 39.2 s High 20.0 - 30.5 s [facility] Comment on above: NOTE: The therapeuti c time for Heparin anticoagulation, based on Xa activity inhibition, is an APTT of 46-80 seconds. INR Coag (Bld) [Relative time] 1.9 {INR} High [facility] Comment on above: Recommended Anticoag ulant Therapy: [...] review of laboratory results Abnormal [facility] PT Coag (PPP) [Time] 19.8 s High 9.0 - 12.0 s [facility] Comment on above: . Test Performed by [facility], [address] [place] [id number] [place] [address] LAB [facility] Protime AND APTTon aPTT Coag (Bld) [Time] 39.2 s High 20.0-30.5 [facility] Comment on above: Result Comment: NOTE : The therapeutic time for Heparin anticoagulation, based on Xa activity inhibition, is an APTT of 46-80 seconds. Performed By: #### P T/AP, TROPN, BMP3, HEMDF #### [address] INR 1.9 High 0.9-1.1 [facility] Comment on above: Result Comment: Harry mmended [...] #### P T/AP, TROPN, BMP3, HEMDF #### [address] PT Coag (PPP) [Time] 19.8 s High 9.0-12.0 [facility] Comment on above: Result Comment: . Performed By: #### P T/AP, TROPN, BMP3, HEMDF #### [address] [address] Troponin Ion 10-31-2021 Troponin I.cardiac [Mass/Vol] ng/mL Normal 0.000-0.034 [facility] Comment on above: Result Comment: . Performed By: #### P T/AP, TROPN, BMP3, HEMDF #### [address] [address] Troponin x1on 10-31-2021 Troponin I.cardiac [Mass/Vol] ng/mL 0.000 - 0.034 ng/mL [facility] Comment on above: . Test Performed by [facility], [address] [place] [address] [facility] Whole blood prothrombin time on 10-31-2021 PT Coag (Bld) [Time] 23.7 s 11.7-14.9 [facility] Work Phone: XR ABDOMEN (KUB) (SINGLE AP VIEW)on 10-31-2021 Patient Name: ANDREW SIFUENTES Diagnostic Radiology ACCESSION EXAM DATE/TIME PROCEDURE ORDERING PROVIDER [id number] 10/31/2021 20:36 EDT CR Abdomen AP [id number] -MYRON DURAN CPT code 16279 Reason For Exam (CR Abdomen AP) vp scientific affairs shunt, 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 CHEST PORTABLE [...] gas pattern. Report Dictated on Workstation: [id number] --- Final --- Dictated: 10/31/2021 8:49 pm Dictating Physician: MD REYNOSO WENDELL Signed Date and Time: 10/31/2021 8:52 pm Signed by: MD REYNOSO WENDELL Transcribed Date and Time: 10/31/2021 8:49 [facility] Huang Blanton MD - 10/31/2021 Patient Name: ANDREW SIFUENTES Diagnostic Radiology ACCESSION EXAM DATE/TIME PROCEDURE ORDERING PROVIDER [id number] 10/31/2021 20:36 EDT CR Abdomen AP [id number] -MYRON DURAN CPT code 04781 Reason For Exam (CR Abdomen AP) vp scientific affairs shunt, 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 CHEST PORTABLE [...] Date and Time: 10/31/2021 8:49 [facility] Work Phone: [facility] Work Phone: XR CHEST PORTABLEon 11-01-19 Patient Name: ANDREW SIFUENTES Diagnostic Radiology ACCESSION EXAM DATE/TIME PROCEDURE ORDERING PROVIDER [id number] 10/31/2021 20:36 EDT CR Chest Portable [id number] PERDOMO CPT code 05605 Reason For Exam (CR Chest Portable) AMS [...] WENDELL Transcribed Date and Time: 10/31/2021 8:49 [facility] Huang Reynoso MD - 10/31/2021 Patient Name: [id number] Diagnostic Radiology ACCESSION EXAM DATE/TIME PROCEDURE ORDERING PROVIDER [id number] 10/31/2021 20:36 EDT CR Chest Portable [id number] MARTÍNEZ CPT code 18158 Reason For Exam (CR Chest Portable) AMS [...] Date and Time: 10/31/2021 8:49 [facility] Work Phone: XR CHEST PORTABLEOrdered By: Huang Reynoso on 10-31-2021 [facility] Work Phone: Lupus Anticoagulanton 2021 DRVVT Confirmation Test Not Applicable Negative ratio [facility] Work Phone: dRVVT Screen 38 [facility] Work Phone: Hex Phosph Neut Test Not Applicable Negative NA [facility] Work Phone: Interpretation and review of laboratory results Abnormal [facility] Work Phone: LUPUS INTERPRETATION See Note [facility] [...] has not already been performed. Performed by [facility], [address] [place] [id number] [email or web address], Quiana Castro MD - Lab. Director Platelet Neutralization Not Applicable Negative NA [facility] Work Phone: PTT-D Heparin Neutralized 48 [facility] Work Phone: PTT-LA 55 High [facility] Work Phone: Reptilase Tm 17.6 <=21.9 sec [facility] Work Phone: Thrombin Time 25.3 High [facility] Work Phone: [facility] Work Phone: Lupus Anticoagulant Reflexiv e Panelon 10-29-2021 aPTT Coag (Bld) [Time] 55 s High 32-48 [facility] Comment on above: Performed By: #### C OVAG #### [facility] [address] [place] [address] aPTT Coag (Bld) [Time] 48 s Normal 32-48 [facility] Comment on above: Performed By: #### C OVAG #### [facility] [address] [place] [address] DRVVT 1:1 Mix Not Applicable Normal 33-44 [facility] Work Phone: Comment on above: Performed By: #### C OVAG #### [facility] [address] [place] [address] dRVVT Confirmation Not Applicable Normal Negative [facility] Comment on above: Performed By: #### C OVAG #### [facility] [address] [place] [address] dRVVT Screen 38 sec Normal 33-44 [facility] Comment on above: Performed By: #### C OVAG #### [facility] [address] [place] [address] Hexagonal Phospholipid Neutral Reflex Not Applicable Normal Negative [facility] Comment on above: Performed By: #### C OVAG #### [facility] [address] [place] [address] Lupus Anticoagulant Interpretation See Note Normal [facility] Comment on above: Result Comment: Lupu s [...] has not already been performed. Performed by [facility], [facility] [address] [email or web address], Quiana Castro MD - Lab. Director Performed By: #### C OVAG #### [facility] [address] [place] [address] Platelet Neutralization (PTT-D, Confirm) Not Applicable Normal Negative [facility] Comment on above: Performed By: #### C OVAG #### [facility] [address] [place] [address] PT Coag (PPP) [Time] 14.7 s Normal 12.0-15.5 [facility] Work Phone: Comment on above: Performed By: #### C OVAG #### [facility] [address] [place] [address] PTT-D 1:1 Mix Not Applicable Normal 32-48 [facility] Work Phone: Comment on above: Performed By: #### C OVAG #### [facility] [address] [place] [address] Reptilase Time 17.6 sec Normal <=21.9 [facility] Comment on above: Performed By: #### C OVAG #### [facility] [address] [place] [address] Thrombin Time 25.3 sec High 14.7-19.5 [facility] Comment on above: Performed By: #### C OVAG #### [facility] [address] [place] [address] POCT COVID-19, Antigenon SARS-CoV-2 Nucleocapsid Antigen Negative Negative [facility] Comment on above: A negative result does not rule out the possibility of SARS-CoV-2 infection. NAAT-based methods should be considered for symptomatic patients presenting greater than seven days after onset of symptoms. Method: Lateral flow immunoassay. Fact sheets for healthcare providers and patients can be found at the following sites: https://www.fda.gov/media/086320/download https://www.AdsWizz.gov/media/522435/download Test Performed by [facility], [address], [place], [place] [address] [facility] Prothrombin Timeon INR 2.7 High 0.9-1.1 [facility] Comment on above: Result Comment: Harry mmended [...] Infarction Performed By: #### P T #### [facility] [address] [place] [address] PT Coag (PPP) [Time] 27.4 s High 9.0-12.0 [facility] Comment on above: Result Comment: . Performed By: #### P T #### [facility] [address] [place] [address] Protime-INRon 10-29-2021 INR Coag (Bld) [Relative time] 2.7 {INR} High [facility] Work Phone: Comment on above: Recommended Anticoag [...] review of laboratory results Abnormal [facility] Work Phone: PT Coag (PPP) [Time] 27.4 s High 9.0 - 12.0 s [facility] Work Phone: [phone] Comment on above: . Test Performed by [facility] [employer] [facility], [address], [place], [place] [address] [facility] Work Phone: SARS-CoV-2 Antigenon 022 SARS-CoV-2 Antigen Negative Normal Negative [facility] Comment on above: Result Comment: A negative result does not rule out the possibility of SARS-CoV-2 infection. NAAT-based methods should be considered for symptomatic patients presenting greater than seven days after onset of symptoms. Method: Lateral flow immunoassay. Fact sheets for healthcare providers and patients can be found at the following sites: https://www.AdsWizz.gov/media/706544/download https://www.AdsWizz.gov/media/344007/download Performed By: #### C OVAG #### [facility] [employer] [facility] [address] [place] [address] [facility] 10-28-2021 Hematocrit (Bld) [Volume fraction] 33.4 % Low 40.0 - 52.0 % [facility] Work Phone: [phone] Hemoglobin (Bld) [Mass/Vol] 11.0 g/dL Low 13.0 - 18.0 g/dL [facility] Work Phone: [phone] Interpretation and review of laboratory results Abnormal [facility] Work Phone: [phone] MCH (RBC) [Entitic mass] 27.8 pg 26.0 - 34.0 pg [facility] Work Phone: [phone] MCHC (RBC) [Mass/Vol] 32.8 % 32.0 - 36.0 % [facility] Work Phone: [phone] MCV (RBC) [Entitic vol] 84.8 fL 80.0 - 98.0 fL [facility] Work Phone: [phone] Platelet distribution width (Bld) [Ratio] 17.1 % High 11.5 - 14.5 % [facility] Phone: [phone] Platelet mean volume (Bld) [Entitic vol] 8.3 fL 7.4 - 12.4 fL [facility] Work Phone: Comment on above: MPV is a calculated measurement using platelet volume ratio. Platelets (Bld) [#/Vol] 344 10*3/uL 140 - 440 10*3/uL [facility] Work Phone: [phone] RBC (Bld) [#/Vol] 3.94 10*6/uL Low 4.40 - 5.9 0 10*6/uL [facility] Work Phone: [phone] WBC (Bld) [#/Vol] 10.0 10*3/uL 3.6 - 10.7 10*3/uL [facility] Work Phone: [phone] Test Performed by [facility], [address] [place] [address] [facility] Work Phone: [phone] Comp Metabolic Panelon 10-28 ALP [Catalytic activity/Vol] 103 U/L Normal 38-126 [facility] Comment on above: Performed By: #### C A19O, LUPUS #### The performing lab is in the report. #### NSEO #### [facility] #### HEMDF, LDH3, BMP3, MG3, PT, CEA2 #### [facility] [address] [place] [address] #### B2GPM, B2GPA, B2GPG #### [address] [address] ALT [Catalytic activity/Vol] 26 U/L Normal 0-49 [facility] Comment on above: Result Comment: The ALT test is performed by an updated assay method. Please note that the reference intervals have been changed and are now sex specific. Performed By: #### C A19O, LUPUS #### The performing lab is in the report. #### NSEO #### [facility] #### HEMDF, LDH3, BMP3, MG3, PT, CEA2 #### [facility] [address] [place] [address] #### B2GPM, B2GPA, B2GPG #### [address] [address] AST [Catalytic activity/Vol] 24 U/L Normal 15-46 [facility] Comment on above: Performed By: #### C A19O, LUPUS #### The performing lab is in the report. #### NSEO #### [facility] #### HEMDF, LDH3, BMP3, MG3, PT, CEA2 #### [place] [address] [place] [address] #### B2GPM, B2GPA, B2GPG #### [address] Calcium [Mass/Vol] 9.1 mg/dL Normal 8.4-10.4 [facility] Comment on above: Performed By: #### C A19O, LUPUS #### The performing lab is in the report. #### NSEO #### [facility] #### HEMDF, LDH3, BMP3, MG3, PT, CEA2 #### [address] [place] [address] #### B2GPM, B2GPA, B2GPG #### [address] Glucose [Mass/Vol] 117 mg/dL High 70-100 [facility] Comment on above: Performed By: #### C A19O, LUPUS #### The performing lab is in the report. #### NSEO #### [facility] #### HEMDF, LDH3, BMP3, MG3, PT, CEA2 #### [address] [place] [address] #### B2GPM, B2GPA, B2GPG #### [address] Urea nitrogen [Mass/Vol] 16 mg/dL Normal 7-17 [facility] Comment on above: Performed By: #### C A19O, LUPUS #### The performing lab is in the report. #### NSEO #### [facility] #### HEMDF, LDH3, BMP3, MG3, PT, CEA2 #### [place] [address] [place] [address] #### B2GPM, B2GPA, B2GPG #### [address] Anion gap [Moles/Vol] 5 mmol/L Normal 3-13 [facility] Comment on above: Performed By: #### C A19O, LUPUS #### The performing lab is in the report. #### NSEO #### [facility] #### HEMDF, LDH3, BMP3, MG3, PT, CEA2 #### [place] [address] [place] [address] #### B2GPM, B2GPA, B2GPG #### [address] Bilirubin [Mass/Vol] 0.4 mg/dL Normal 0.2-1.3 [facility] Comment on above: Performed By: #### C A19O, LUPUS #### The performing lab is in the report. #### NSEO #### [facility] #### HEMDF, LDH3, BMP3, MG3, PT, CEA2 #### [place] [address] [place] [address] #### B2GPM, B2GPA, B2GPG #### [address] CO2 [Moles/Vol] 29 mmol/L Normal 22-30 [facility] Comment on above: Performed By: #### C A19O, LUPUS #### The performing lab is in the report. #### NSEO #### [facility] #### HEMDF, LDH3, BMP3, MG3, PT, CEA2 #### [place] [address] [place] [address] #### B2GPM, B2GPA, B2GPG #### [address] Creatinine [Mass/Vol] 0.71 mg/dL Normal 0.52-1.25 [facility] Comment on above: Performed By: #### C A19O, LUPUS #### The performing lab is in the report. #### NSEO #### [facility] #### HEMDF, LDH3, BMP3, MG3, PT, CEA2 #### [facility] [address] [place] [address] #### B2GPM, B2GPA, B2GPG #### [address] [address] eGFR OTHER > 90.0 Normal >60 [facility] Comment on above: Result Comment: KDIG O [...] HEMDF, LDH3, BMP3, MG3, PT, CEA2 #### [facility] [address] [place] [address] #### B2GPM, B2GPA, B2GPG #### [address] [address] GFR/1.73 sq M.predicted among blacks MDRD (S/P/Bld) [Vol rate/Area] mL/min/{1.73_m2} Normal >60 [facility] Comment on above: Performed By: #### C A19O, LUPUS #### The performing lab is in the report. #### NSEO #### [facility] #### HEMDF, LDH3, BMP3, MG3, PT, CEA2 #### [facility] [address] [place] [address] #### B2GPM, B2GPA, B2GPG #### [address] Protein [Mass/Vol] 7.1 g/dL Normal 6.3-8.2 [facility] Comment on above: Performed By: #### C A19O, LUPUS #### The performing lab is in the report. #### NSEO #### [facility] #### HEMDF, LDH3, BMP3, MG3, PT, CEA2 #### [place] [address] [place] [address] #### B2GPM, B2GPA, B2GPG #### [address] Potassium [Moles/Vol] 3.5 mmol/L Normal 3.5-5.1 [facility] Comment on above: Performed By: #### C A19O, LUPUS #### The performing lab is in the report. #### NSEO #### [facility] #### HEMDF, LDH3, BMP3, MG3, PT, CEA2 #### [place] [address] [place] [address] #### B2GPM, B2GPA, B2GPG #### [address] Sodium [Moles/Vol] 138 mmol/L Normal 135-145 [facility] Comment on above: Performed By: #### C A19O, LUPUS #### The performing lab is in the report. #### NSEO #### [facility] #### HEMDF, LDH3, BMP3, MG3, PT, CEA2 #### [place] [address] [place] [address] #### B2GPM, B2GPA, B2GPG #### [address] Albumin [Mass/Vol] 3.7 g/dL Normal 3.5-5.0 [facility] Comment on above: Performed By: #### C A19O, LUPUS #### The performing lab is in the report. #### NSEO #### [facility] #### HEMDF, LDH3, BMP3, MG3, PT, CEA2 #### [facility] [address] [place] [address] #### B2GPM, B2GPA, B2GPG #### [address] Chloride [Moles/Vol] 104 mmol/L Normal 98-107 [facility] Comment on above: Performed By: #### C A19O, LUPUS #### The performing lab is in the report. #### NSEO #### [facility] #### HEMDF, LDH3, BMP3, MG3, PT, CEA2 #### [facility] [address] [place] [address] #### B2GPM, B2GPA, B2GPG #### [address] Comprehensive Metabolic Pane kiel 10-28-2021 Albumin [Mass/Vol] 3.7 g/dL 3.5 - 5.0 g/dL [facility] Work Phone: [phone] ALP (Bld) [Catalytic activity/Vol] 103 U/L 38 - 126 U/L [facility] Work Phone: ALT [Catalytic activity/Vol] 26 U/L 0 - 49 U/L [facility] Work Phone: Comment on above: The ALT test is perf ormed by an updated assay method. Please note that the reference intervals have been changed and are now sex specific. Anion gap [Moles/Vol] 5 mmol/L 3 - 13 mmol/L [facility] Work Phone: AST [Catalytic activity/Vol] 24 U/L 15 - 46 U/L [facility] Work Phone: Bilirubin [Mass/Vol] 0.4 mg/dL 0.2 - 1 .3 mg/dL [facility] Work Phone: [phone] Calcium [Mass/Vol] 9.1 mg/dL 8.4 - 10. 4 mg/dL [facility] Work Phone: [phone] Chloride [Moles/Vol] 104 mmol/L 98 - 10 7 mmol/L [facility] Work Phone: [phone] CO2 [Moles/Vol] 29 mmol/L 22 - 30 mmol/L [facility] Work Phone: [phone] Creatinine [Mass/Vol] 0.71 mg/dL 0.52 - 1.25 mg/dL [facility] Work Phone: [phone] EGFR IF NonAfrican [place]at[place] >90.0 >60 mL/min [facility] Work Phone: [phone] Comment on above: [...] fraction] 7.1 g/dL 6.3 - 8.2 g/dL [facility] Work Phone: [phone] GFR/1.73 sq M.predicted among blacks MDRD (S/P/Bld) [Vol rate/Area] mL/min/{1.73_m2} >60 mL/min [facility] Work Phone: [phone] Glucose [Mass/Vol] 117 mg/dL High 70 - 100 mg/dL [facility] Work Phone: [phone] Interpretation and review of laboratory results Abnormal [facility] Work Phone: Potassium [Moles/Vol] 3.5 mmol/L 3.5 - 5.1 mmol/L [facility] Work Phone: Sodium [Moles/Vol] 138 mmol/L 135 - 145 mmol/L [facility] Work Phone: Urea nitrogen (BldV) [Mass/Vol] 16 mg/dL 7 - 17 mg/dL [facility] Work Phone: Test Performed by [facility], [address] [place], [place] [address] [facility] Work Phone: Hemogramon 10-28-2021 Erythrocyte distribution width (RBC) [Ratio] 17.1 % High 11.5-14.5 [facility] Comment on above: Performed By: #### C A19O, LUPUS #### The performing lab is in the report. #### NSEO #### [facility] #### HEMDF, LDH3, BMP3, MG3, PT, CEA2 #### [address] [address] #### B2GPM, B2GPA, B2GPG #### [address] Hematocrit (Bld) [Volume fraction] 33.4 % Low 40.0-52.0 [facility] Comment on above: Performed By: #### C A19O, LUPUS #### The performing lab is in the report. #### NSEO #### [facility] #### HEMDF, LDH3, BMP3, MG3, PT, CEA2 #### [address] [place] [address] #### B2GPM, B2GPA, B2GPG #### [address] Hemoglobin (Bld) [Mass/Vol] 11.0 g/dL Low 13.0-18.0 [facility] Comment on above: Performed By: #### C A19O, LUPUS #### The performing lab is in the report. #### NSEO #### [facility] #### HEMDF, LDH3, BMP3, MG3, PT, CEA2 #### [facility] [address] [place] #### B2GPM, B2GPA, B2GPG #### [address] MCH (RBC) [Entitic mass] 27.8 pg Normal 26.0-34.0 [facility] Comment on above: Performed By: #### C A19O, LUPUS #### The performing lab is in the report. #### NSEO #### [facility] #### HEMDF, LDH3, BMP3, MG3, PT, CEA2 #### [address] [place], [place] #### B2GPM, B2GPA, B2GPG #### [address] MCHC 32.8 % Normal 32.0-36.0 [facility] Comment on above: Performed By: #### C A19O, LUPUS #### The performing lab is in the report. #### NSEO #### [facility] #### HEMDF, LDH3, BMP3, MG3, PT, CEA2 #### [address] [place], [place] #### B2GPM, B2GPA, B2GPG #### [address] MCV (RBC) [Entitic vol] 84.8 fL Normal 80.0-98.0 [facility] Comment on above: Performed By: #### C A19O, LUPUS #### The performing lab is in the report. #### NSEO #### [facility] #### HEMDF, LDH3, BMP3, MG3, PT, CEA2 #### [address] [place], [place] #### B2GPM, B2GPA, B2GPG #### [address] Platelet mean volume (Bld) [Entitic vol] 8.3 fL Normal 7.4-12.4 [facility] Comment on above: Result Comment: MPV is a calculated measurement using platelet volume ratio. Performed By: #### C A19O, LUPUS #### The performing lab is in the report. #### NSEO #### [facility] #### HEMDF, LDH3, BMP3, MG3, PT, CEA2 #### [facility] [address] [place] [address] #### B2GPM, B2GPA, B2GPG #### [address] Platelets (Bld) [#/Vol] 344 10*3/uL Normal 140-440 [facility] Comment on above: Performed By: #### C A19O, LUPUS #### The performing lab is in the report. #### NSEO #### [facility] #### HEMDF, LDH3, BMP3, MG3, PT, CEA2 #### [facility] [address] [place] [address] #### B2GPM, B2GPA, B2GPG #### [address] RBC (Bld) [#/Vol] 3.94 10*6/uL Low 4.40-5.90 [facility] Comment on above: Performed By: #### C A19O, LUPUS #### The performing lab is in the report. #### NSEO #### [facility] #### HEMDF, LDH3, BMP3, MG3, PT, CEA2 #### [facility] [address] [facility] [place] [address] #### B2GPM, B2GPA, B2GPG #### [address] WBC (Bld) [#/Vol] 10.0 10*3/uL Normal 3.6-10.7 [facility] Comment on above: Performed By: #### C A19O, LUPUS #### The performing lab is in the report. #### NSEO #### [facility] #### HEMDF, LDH3, BMP3, MG3, PT, CEA2 #### [facility] [address] [place] [address] #### B2GPM, B2GPA, B2GPG #### [facility] [address] [place] [address] Neuron Specific Enolaseon Neuron Specific Enolase 20.8 Normal [facility] Comment on above: Result Comment: Neur on Specific Enolase, Serum 20.8 ng/mL H (Ref Interval: <=12.7) NSE and Hgb are elevated in the specimen. The elevated NSE may be a result of hemolysis as NSE is expressed in red blood cells. Interpret results with caution. INTERPRETIVE INFORMATION: Neuron Specific Enolase in Serum This assay is performed using the [employer] NSE Kryptor Immunoassay. Results obtained with different assay methods or kits cannot be used interchangeably. Results cannot be interpreted as absolute evidence of the presence or absence of malignant disease. This test was developed and its performance characteristics determined by [facility]. It has not been cleared or approved by the [place] Food and Drug Administration. This test was performed in a CLIA certified laboratory and is intended for clinical purposes. Performed By: #### C OVAG #### [facility] [address] [place] [address] Neuron specific enolase (NSE )on 10-28-2021 Neuron Specific Enolase 20.8 [facility] Work Phone: Comment on above: Neuron Specific Enol ase, Serum 20.8 ng/mL H (Ref Interval: <=12.7) NSE and Hgb are elevated in the specimen. The elevated NSE may be a result of hemolysis as NSE is expressed in red blood cells. Interpret results with caution. INTERPRETIVE INFORMATION: Neuron Specific Enolase in Serum This assay is performed using the [employer] NSE Kryptor Immunoassay. Results obtained with different assay methods or kits cannot be used interchangeably. Results cannot be interpreted as absolute evidence of the presence or absence of malignant disease. This test was developed and its performance characteristics determined by [facility]. It has not been cleared or approved by the [place] Food and Drug Administration. This test was performed in a CLIA certified laboratory and is intended for clinical purposes. 1 [facility] Work Phone: Prothrombin Timeon 2 INR 3.1 High 0.9-1.1 [facility] Comment on above: Result Comment: Harry mmended [...] HEMDF, LDH3, BMP3, MG3, PT, CEA2 #### [facility] [address] [place] [address] #### B2GPM, B2GPA, B2GPG #### [address] [id number] PT Coag (PPP) [Time] 30.8 s High 9.0-12.0 [facility] Comment on above: Result Comment: . Performed By: #### C A19O, LUPUS #### The performing lab is in the report. #### NSEO #### [facility] #### HEMDF, LDH3, BMP3, MG3, PT, CEA2 #### [facility] [address] [place] [address] #### B2GPM, B2GPA, B2GPG #### [facility] [address] [place] [address] Protime-INRon 10-28-2021 INR Coag (Bld) [Relative time] 3.1 {INR} High [facility] Work Phone: Comment on above: Recommended Anticoag [...] review of laboratory results Abnormal [facility] Work Phone: PT Coag (PPP) [Time] 30.8 s High 9.0 - 12.0 s [facility] Work Phone: Comment on above: . Test Performed by [facility], [address] [place], [place] [address] [place] [address] LAB [facility] Work Phone: MRI BRAIN WO CONTRASTon - Patient Name: ANDREW SIFUENTES Magnetic Resonance Imaging ACCESSION EXAM DATE/TIME PROCEDURE ORDERING PROVIDER [id number] 10/27/2021 13:14 EDT MRI Brain w/o Contrast UNASSIGNED, UNASSIGNED CPT code 06120 Reason For Exam (MRI Brain w/o Contrast) stroke Patient has DIRECTOR CARDIAC shunt in place, please follow Radiology protocol [...] OSAMA Transcribed Date and Time: 10/27/2021 2:[address] [facility] Venus Loyd MD - 10/27/2021 Patient Name: ANDREW SIFUENTES Magnetic Resonance Imaging ACCESSION EXAM DATE/TIME PROCEDURE ORDERING PROVIDER [id number] 10/27/2021 13:14 EDT MRI Brain w/o Contrast UNASSIGNED, UNASSIGNED CPT code 64984 Reason For Exam (MRI Brain w/o Contrast) stroke Patient has DIRECTOR CARDIAC shunt in place, please follow Radiology protocol [...] Imaging ACCESSION EXAM DATE/TIME PROCEDURE ORDERING PROVIDER [id number] 10/27/2021 13:14 EDT MRI Brain w/o Contrast UNASSIGNED, UNASSIGNED CPT code 44622 Reason For Exam (MRI Brain w/o Contrast) stroke Patient has DIRECTOR CARDIAC shunt in place, please follow Radiology protocol [...] Transcribed Date and Time: 10/27/2021 2:39 Normal [facility] Prothrombin Timeon 2 INR 2.1 High 0.9-1.1 [facility] Comment on above: Result Comment: Harry mmended [...] Infarction Performed By: #### P T #### [facility] [address] [place] [address] PT Coag (PPP) [Time] 21.9 s High 9.0-12.0 [facility] Work Phone: Comment on above: . Result Comment: . Performed By: #### P T #### [facility] [address] [place] [address] Protime-INRon 10-27-2021 INR Coag (Bld) [Relative time] 2.1 {INR} High [facility] Work Phone: Comment on above: Recommended Anticoag [...] Interpretation and review of laboratory results Abnormal [employer] Work Phone: Test Performed by [facility], [address], [place], [place] [address] [facility] Work Phone: CT HEAD WO CONTRASTon 2021 Patient Name: ANDREW SIFUENTES Computed Tomography ACCESSION EXAM DATE/TIME PROCEDURE ORDERING PROVIDER [id number] 10/26/2021 11:[address] Head or Brain w/o JUNIE PINEDA, SARINA Contrast CPT code 09093 Reason For Exam (CT Head or Brain w/o Contrast) hydrocephalus. thank you Report CLINICAL INFORMATION: Hydrocephalus. Shunt. 3 mm axial cuts through the head are obtained without IV contrast. The examination is compared to a previous study dated 06/29/2014. FINDINGS: Old DIRECTOR CARDIAC shunt tubing is noted bilaterally. The new [...] are clear. IMPRESSION: 1. Old and new DIRECTOR CARDIAC shunt tubing. 2. No hydrocephalus. 3. Atrophy [...] Tomography ACCESSION EXAM DATE/TIME PROCEDURE ORDERING PROVIDER [id number] 10/26/2021 11:[address] Head or Brain w/o JUNIE PINEDA, SARINA Contrast CPT code 30509 Reason For Exam (CT Head or Brain w/o Contrast) hydrocephalus. thank you Report CLINICAL INFORMATION: Hydrocephalus. Shunt. 3 mm axial cuts through the head are obtained without IV contrast. The examination is compared to a previous study dated 06/29/2014. FINDINGS: Old DIRECTOR CARDIAC shunt tubing is noted bilaterally. The new [...] are clear. IMPRESSION: 1. Old and new DIRECTOR CARDIAC shunt tubing. 2. No hydrocephalus. 3. Atrophy and evidence of small-vessel ischemic disease. 4. No CT evidence of an acute intracranial process. Report Dictated on --- Final --- Dictating Physician: MD SOLANO JEFFREY Signed Date and Time: 10/26/2021 11:42 am Signed by: MD SOLANO JEFFREY Transcribed Date and Time: 10/26/2021 11:43 [facility] Work Phone: CT HEAD WO CONTRASTOrdered B y: Albert Solano on 10-26-2021 [facility] Work Phone: CT Head or Brain w/o Contras ton 10-26-2021 CT Head or Brain w/o Contrast Patient Name: ANDREW SIFUENTES Computed Tomography ACCESSION EXAM DATE/TIME PROCEDURE ORDERING PROVIDER [id number] 10/26/2021 11:[address] Head or Brain w/o JUNIE PINEDA, SARINA Contrast CPT code 54376 Reason For Exam (CT Head or Brain w/o Contrast) hydrocephalus. thank you Report CLINICAL INFORMATION: Hydrocephalus. Shunt. 3 mm axial cuts through the head are obtained without IV contrast. The examination is compared to a previous study dated 06/29/2014. FINDINGS: Old DIRECTOR CARDIAC shunt tubing is noted bilaterally. The new [...] are clear. IMPRESSION: 1. Old and new DIRECTOR CARDIAC shunt tubing. 2. No hydrocephalus. 3. Atrophy and evidence of small-vessel ischemic disease. 4. No CT evidence of an acute intracranial process. Report Dictated on Final Dictating Physician: MD SOLANO JEFFREY Signed Date and Time: 10/26/2021 11:42 am Signed by: MD SOLANO JEFFREY Transcribed Date and Time: 10/26/2021 11:43 Normal [facility] EEG awake and asleepon 10-26 Bony Tompkins MD 10/26/2021 4:06 PM [facility] [address] [place] [address] ROUTINE EEG REPORT Patient Name: Andrew Sifuentes : 1950 Date of Study: 10/26/2021 Duration Recorded: 23 minutes EEG#: [id number] [employer] ENGINEER: CASTRO PROVIDER REQUESTING STUDY: Dr. Barreto REASON FOR EXAM: seizures HISTORY: Andrew Sifuentes is a 71 y.o. male with history of obstructive hydrocephalus s/p DIRECTOR CARDIAC shunt in 1987, needing multiple revisions and [...] normal limits and both old and new DIRECTOR CARDIAC shunt tubing noted. At present patient is awake, follows commands, was able to tell his name, and that he was in hospital but not oriented to time. Per documentation patient had NCSE in May 2021, was on Vimpat, but it was discontinued as there was no evidence of recurrent seizures in July 2021 by Neurology at [facility], per daughter patient was on Dilantin for 31 yrs. Per daughter patient had seizures in the past and also felt he had staring episodes this morning. Per daughter patient has been essentially bed bound in [place] since May 2021 but prior to that [...] 17 g 17 g Oral Daily PRN Mya Cash MD acetaminophen (TYLENOL) tablet 650 mg [...] study with video was carried out at [facility]. Scalp electrodes were positioned in person by an ultrasound technologist, following patient education, according to the 10-20 International system of electrode placement and maintained for integrity and quality of the recording. EEG data with video was recorded continuously and digitally stored. The ultrasound technologist reviewed all automated detections and manual [...] No normal vari (more content not included)... [facility] Work [facility]: [facility] Work Phone: No Panel Informationon 10-26 Radiology Study observation (narrative) [facility] Work Phone: Prothrombin Timeon INR 1.9 High 0.9-1.1 [facility] Comment on above: Result Comment: Ahrry mmended Anticoagulant Therapy: SEE BELOW ----- INR [...] Infarction Performed By: #### C OVAG #### [facility] [address] [place] [address] PT Coag (PPP) [Time] 19.7 s High 9.0-12.0 [facility] Comment on above: Result Comment: . Performed By: #### C OVAG #### [facility] [address] [place] [address] Protime-INRon 10-26-2021 INR Coag (Bld) [Relative time] 1.9 {INR} High [facility] Work Phone: Comment on above: Recommended Anticoag [...] review of laboratory results Abnormal [facility] Work Phone: PT Coag (PPP) [Time] 19.7 s High 9.0 - 12.0 s [facility] Work Phone: Comment on above: . Test Performed by [facility], [address], [place], [place] [address] [facility] Work Phone: CA 19-9on 10-25-2021 CA 19-9 17 U/mL Normal <=35 [facility] Work Phone: Comment on above: INTERPRETIVE INFORMA [...] or absence of malignant disease. Performed By: [facility] [address] [place] [address] Food Clerk: Quiana Castro MD Result Comment: INTE RPRETIVE [...] or absence of malignant disease. Performed By: [facility] [address] [place] [id number] Food Clerk: Quiana Castro MD Performed By: #### C OVAG #### [facility] [facility] [address] [place] [address] Cancer Antigen 19-9on 2021 [facility] Work Phone: Prothrombin Timeon 2 INR 1.5 High 0.9-1.1 [facility] [facility] Comment on above: Result Comment: [...] Infarction Performed By: #### P T #### [facility] [address] [place] [address] PT Coag (PPP) [Time] 15.6 s High 9.0-12.0 [facility] Comment on above: Result Comment: . Performed By: #### P T #### [facility] [address] [place] [address] Protime-INRon 10-25-2021 INR Coag (Bld) [Relative time] 1.5 {INR} High [facility] Work Phone: Comment on above: Recommended Anticoag [...] review of laboratory results Abnormal [facility] Work Phone: PT Coag (PPP) [Time] 15.6 s High 9.0 - 12.0 s [facility] Work Phone: Comment on above: . Test Performed by [facility], [address], [place], [place] [address] [facility] Work Phone: B-2 Glycoprotein (IGA)on Beta-2 Glyco 1 IgA <2.0 U/mL [employer] Work Phone: Comment on above: Interpretive Informa tion: Results equal to or greater than 20 U/mL = POSITIVE Results less than 20 U/mL = NEGATIVE B2 Glycoprotein I (IgM) Abon 10-24-2021 Beta-2 Glyco 1 IgM <1.5 U/mL [facility] Work Phone: Comment on above: Interpretive Informa tion: Results equal to or greater than 20 U/mL = POSITIVE Results less than 20 U/mL = NEGATIVE B2 Glycoprotein I Igg Abon 0 10-24-2021 Beta-2 Glyco 1 IgG <1.4 U/mL [facility] Work Phone: Comment on above: Interpretive Informa tion: Results equal to or greater than 20 U/mL = POSITIVE Results less than 20 U/mL = NEGATIVE Basic Metabolic Panelon 10-06 Anion gap [Moles/Vol] 8 mmol/L Normal 3-13 [facility] Comment on above: Performed By: #### C A19O, LUPUS #### The performing lab is in the report. #### NSEO #### [facility] #### HEMDF, LDH3, BMP3, MG3, PT, CEA2 #### [facility] [address] [place] [address] #### B2GPM, B2GPA, B2GPG #### [address] Calcium [Mass/Vol] 8.8 mg/dL Normal 8.4-10.4 [facility] Comment on above: Performed By: #### C A19O, LUPUS #### The performing lab is in the report. #### NSEO #### [facility] #### HEMDF, LDH3, BMP3, MG3, PT, CEA2 #### [facility] [address] [place] [address] #### B2GPM, B2GPA, B2GPG #### [facility] [address] [place] [address] CO2 [Moles/Vol] 25 mmol/L Normal 22-30 [facility] Comment on above: Performed By: #### C A19O LUPUS #### The performing lab is in the report. #### NSEO #### [facility] #### HEMDF, LDH3, BMP3, MG3, PT, CEA2 #### [facility] [address] [place] [address] #### B2GPM, B2GPA, B2GPG #### [address] Creatinine [Mass/Vol] 0.74 mg/dL Normal 0.52-1.25 [facility] Comment on above: Performed By: #### C A19O, LUPUS #### The performing lab is in the report. #### NSEO #### [facility] #### HEMDF, LDH3, BMP3, MG3, PT, CEA2 #### [facility] [address] [place], [place] #### B2GPM, B2GPA, B2GPG #### [address] eGFR OTHER > 90.0 Normal >60 [facility] Comment on above: Result Comment: KDIG O [...] HEMDF, LDH3, BMP3, MG3, PT, CEA2 #### [facility] [address] [place] [address] #### B2GPM, B2GPA, B2GPG #### [place] [address] [place], [place] GFR/1.73 sq M.predicted among blacks MDRD (S/P/Bld) [Vol rate/Area] mL/min/{1.73_m2} Normal >60 [facility] Comment on above: Performed By: #### C A19O, LUPUS #### The performing lab is in the report. #### NSEO #### [facility] #### HEMDF, LDH3, BMP3, MG3, PT, CEA2 #### [facility] [address] [place] #### B2GPM, B2GPA, B2GPG #### [place] [address] [place], [place] Glucose [Mass/Vol] 116 mg/dL High 70-100 [facility] Comment on above: Performed By: #### C A19O, LUPUS #### The performing lab is in the report. #### NSEO #### [facility] #### HEMDF, LDH3, BMP3, MG3, PT, CEA2 #### [facility] [address] [place] #### B2GPM, B2GPA, B2GPG #### [address] Urea nitrogen [Mass/Vol] 19 mg/dL High 7-17 [facility] Comment on above: Performed By: #### C A19O, LUPUS #### The performing lab is in the report. #### NSEO #### [facility] #### HEMDF, LDH3, BMP3, MG3, PT, CEA2 #### [facility] [address] [place] #### B2GPM, B2GPA, B2GPG #### [address] Chloride [Moles/Vol] 107 mmol/L Normal 98-107 [facility] Comment on above: Performed By: #### C A19O, LUPUS #### The performing lab is in the report. #### NSEO #### [facility] #### HEMDF, LDH3, BMP3, MG3, PT, CEA2 #### [place] [address] [place] [address] #### B2GPM, B2GPA, B2GPG #### [address] Potassium [Moles/Vol] 3.9 mmol/L Normal 3.5-5.1 [facility] Comment on above: Performed By: #### C A19O, LUPUS #### The performing lab is in the report. #### NSEO #### [facility] #### HEMDF, LDH3, BMP3, MG3, PT, CEA2 #### [place] [address] [place] [address] #### B2GPM, B2GPA, B2GPG #### [address] Sodium [Moles/Vol] 140 mmol/L Normal 135-145 [facility] Comment on above: Performed By: #### C A19O, LUPUS #### The performing lab is in the report. #### NSEO #### [facility] #### HEMDF, LDH3, BMP3, MG3, PT, CEA2 #### [address] [place] [address] #### B2GPM, B2GPA, B2GPG #### [address] Anion gap [Moles/Vol] 8 mmol/L 3 - 13 mmol/L [facility] Calcium [Mass/Vol] 8.8 mg/dL 8.4 - 10. 4 mg/dL [facility] Chloride [Moles/Vol] 107 mmol/L 98 - 10 7 mmol/L [facility] CO2 [Moles/Vol] 25 mmol/L 22 - 30 mmol/L [facility] Creatinine [Mass/Vol] 0.74 mg/dL 0.52 - 1.25 mg/dL [facility] EGFR IF NonAfrican [place] >90.0 >60 mL/min [facility] Comment on above: [...] High 70 - 100 mg/dL [facility] Interpretation and review of laboratory results Abnormal [facility] Potassium [Moles/Vol] 3.9 mmol/L 3.5 - 5.1 mmol/L [facility] Sodium [Moles/Vol] 140 mmol/L 135 - 145 mmol/L [facility] Urea nitrogen (BldV) [Mass/Vol] 19 mg/dL High 7 - 17 mg/dL [facility] Test Performed by [facility], [address], [place], [place] [id number] [place] [address] LAB [facility] Beta-2 Glycoprotein I IgAon 10-24-2021 Beta-2 Glycoprotein I IgA < 2.0 Normal [facility] Comment on above: Result Comment: Inte rpretive Information: Results equal to or greater than 20 U/mL = POSITIVE Results less than 20 U/mL = NEGATIVE Performed By: #### C OVAG #### [facility] [address] [place] [address] Beta-2 Glycoprotein I IgGon 10-24-2021 Beta-2 Glycoprotein I IgG < 1.4 Normal [facility] Comment on above: Result Comment: Inte rpretive Information: Results equal to or greater than 20 U/mL = POSITIVE Results less than 20 U/mL = NEGATIVE Performed By: #### C OVAG #### [facility] [address] [place] [address] Beta-2 Glycoprotein I IgMon 10-24-2021 Beta-2 Glycoprotein I IgM < 1.5 Normal [facility] Comment on above: Result Comment: Inte rpretive Information: Results equal to or greater than 20 U/mL = POSITIVE Results less than 20 U/mL = NEGATIVE Performed By: #### C OVAG #### [facility] [address] [place] [address] No Panel Informationon 10-24 [facility] Test Performed by [facility], [address] [place] [id number] [facility] Work Phone: PROTEIN C FUNCTIONALon 10-24 Interpretation and review of laboratory results Abnormal [facility] Protein C-Functional 185 % High 83 - 168 % [facility] A Comment on above: INTERPRETIVE INFORMA TION: [...] reference intervals for this test in the [employer] [facility] Laboratory Test Directory ([facility]). Performed by [facility], [address] [place] [address] [email or web address], Quiana Castro MD - Lab. Director Protein C, Functionalon 10-06 Protein C, Functional 185 % High 83-168 [facility] Comment on above: Result Comment: INTE RPRETIVE [...] reference intervals for this test in the [employer] [facility] Test Directory ([facility]). Performed by [facility], [address] [place] [address] [email or web address], Quiana Castro MD - Lab. Director Performed By: #### P T #### [facility] [employer] [facility] [address] [place] [address] Protein S, Functionalon 10-06 Protein S, Functional 138 % Normal 66-143 [facility] [place] Comment on above: INTERPRETIVE INFORMA TION: Protein [...] reference intervals for this test in the [employer] [facility] Test Directory ([facility]). Performed by [facility], [address] [place] [address] [email or web address], Quiana Castro MD - Lab. Director Result [...] reference intervals for this test in the [employer] [facility] Test Directory ([facility]). Performed by [facility], [address] [facility] [place] [address] [email or web address], Quiana Castro MD - Lab. Director Performed By: #### P T #### [facility] [employer] [facility] [address] [place] [address] Prothrombin Timeon 2 INR 1.2 High 0.9-1.1 [facility] Comment on above: Result Comment: Harry mmended [...] HEMDF, LDH3, BMP3, MG3, PT, CEA2 #### [facility] [address] [place] [address] #### B2GPM, B2GPA, B2GPG #### [address] [phone] PT Coag (PPP) [Time] 12.6 s High 9.0-12.0 [facility] Comment on above: Result Comment: . Performed By: #### C A19O, LUPUS #### The performing lab is in the report. #### NSEO #### [facility] #### HEMDF, LDH3, BMP3, MG3, PT, CEA2 #### [facility] [address] [place] [address] #### B2GPM, B2GPA, B2GPG #### [address] [address] Protime-INRon 10-24-2021 INR Coag (Bld) [Relative time] 1.2 {INR} High [facility] Comment on above: Recommended Anticoag ulant Therapy: [...] review of laboratory results Abnormal [facility] PT Coag (PPP) [Time] 12.6 s High 9.0 - 12.0 s [facility] Comment on above: . Test Performed by [facility], [address] [place] [address] [facility] Basic Metabolic Panelon 06- Anion gap [Moles/Vol] 10 mmol/L Normal 3-13 [facility] Comment on above: Performed By: #### C A19O, LUPUS #### The performing lab is in the report. #### NSEO #### [facility] #### HEMDF, LDH3, BMP3, MG3, PT, CEA2 #### [facility] [address] [place] [address] #### B2GPM, B2GPA, B2GPG #### [address] [address] Calcium [Mass/Vol] 9.6 mg/dL Normal 8.4-10.4 [facility] Comment on above: Performed By: #### C A19O, LUPUS #### The performing lab is in the report. #### NSEO #### [facility] #### HEMDF, LDH3, BMP3, MG3, PT, CEA2 #### [facility] [address] [place] [address] #### B2GPM, B2GPA, B2GPG #### [address] [address] CO2 [Moles/Vol] 27 mmol/L Normal 22-30 [facility] Comment on above: Performed By: #### C A19O, LUPUS #### The performing lab is in the report. #### NSEO #### [facility] #### HEMDF, LDH3, BMP3, MG3, PT, CEA2 #### [facility] [address] [place] [address] #### B2GPM, B2GPA, B2GPG #### [address] [address] Glucose [Mass/Vol] 109 mg/dL High 70-100 [facility] Comment on above: Performed By: #### C A19O, LUPUS #### The performing lab is in the report. #### NSEO #### [facility] #### HEMDF, LDH3, BMP3, MG3, PT, CEA2 #### [facility] [address] [place] [address] #### B2GPM, B2GPA, B2GPG #### [address] Urea nitrogen [Mass/Vol] 18 mg/dL High 7-17 [facility] Comment on above: Performed By: #### C A19O, LUPUS #### The performing lab is in the report. #### NSEO #### [facility] #### HEMDF, LDH3, BMP3, MG3, PT, CEA2 #### [facility] [address] [place] [address] #### B2GPM, B2GPA, B2GPG #### [address] Creatinine [Mass/Vol] 0.82 mg/dL Normal 0.52-1.25 [facility] Comment on above: Performed By: #### C A19O, LUPUS #### The performing lab is in the report. #### NSEO #### [facility] #### HEMDF, LDH3, BMP3, MG3, PT, CEA2 #### [facility] [address] [place] [address] #### B2GPM, B2GPA, B2GPG #### [address] GFR/1.73 sq M.predicted among blacks MDRD (S/P/Bld) [Vol rate/Area] mL/min/{1.73_m2} Normal >60 [facility] Comment on above: Performed By: #### C A19O, LUPUS #### The performing lab is in the report. #### NSEO #### [facility] #### HEMDF, LDH3, BMP3, MG3, PT, CEA2 #### [facility] [address] [place] [address] #### B2GPM, B2GPA, B2GPG #### [address] [address] GFR/1.73 sq M.predicted among non-blacks MDRD (S/P/Bld) [Vol rate/Area] 89.9 mL/min/{1.73_m2} Normal >60 [facility] Comment on above: Result Comment: KDIG O [...] HEMDF, LDH3, BMP3, MG3, PT, CEA2 #### [address] [place] [address] #### B2GPM, B2GPA, B2GPG #### [address] [address] Chloride [Moles/Vol] 104 mmol/L Normal 98-107 [facility] Comment on above: Performed By: #### C A19O, LUPUS #### The performing lab is in the report. #### NSEO #### [facility] #### HEMDF, LDH3, BMP3, MG3, PT, CEA2 #### [address] [place] [address] #### B2GPM, B2GPA, B2GPG #### [address] [address] Potassium [Moles/Vol] 3.9 mmol/L Normal 3.5-5.1 [facility] Comment on above: Performed By: #### C A19O, LUPUS #### The performing lab is in the report. #### NSEO #### [facility] #### HEMDF, LDH3, BMP3, MG3, PT, CEA2 #### [place] [address] [place] [address] #### B2GPM, B2GPA, B2GPG #### [address] Sodium [Moles/Vol] 142 mmol/L Normal 135-145 [facility] Comment on above: Performed By: #### C A19O, LUPUS #### The performing lab is in the report. #### NSEO #### [facility] #### HEMDF, LDH3, BMP3, MG3, PT, CEA2 #### [address] [place] [address] #### B2GPM, B2GPA, B2GPG #### [address] Anion gap [Moles/Vol] 10 mmol/L 3 - 13 mmol/L [facility] Work Phone: [phone] Calcium [Mass/Vol] 9.6 mg/dL 8.4 - 10. 4 mg/dL [facility] Work Phone: [phone] Chloride [Moles/Vol] 104 mmol/L 98 - 10 7 mmol/L [facility] Work Phone: ) [phone] CO2 [Moles/Vol] 27 mmol/L 22 - 30 mmol/L [facility] Work Phone: [phone] Creatinine [Mass/Vol] 0.82 mg/dL 0.52 - 1.25 mg/dL [facility] Work Phone: [phone] EGFR IF NonAfrican Qat[place] 89.9 mL/min >60 [facility] Work Phone: Comment on above: KDIGO guidelines [...] MDRD (S/P/Bld) [Vol rate/Area] mL/min/{1.73_m2} >60 mL/min [facility] Work Phone: Glucose [Mass/Vol] 109 mg/dL High 70 - 100 mg/dL [facility] Work Phone: Interpretation and review of laboratory results Abnormal [facility] Work Phone: Potassium [Moles/Vol] 3.9 mmol/L 3.5 - 5.1 mmol/L [facility] Work Phone: [phone] Sodium [Moles/Vol] 142 mmol/L 135 - 145 mmol/L [facility] Work Phone: Urea nitrogen (BldV) [Mass/Vol] 18 mg/dL High 7 - 17 mg/dL [facility] Work Phone: CBC with Auto Differentialon 10-23-2021 Absolute Baso # 0.1 10*3/uL 0.0 - 0.2 10*3/uL [facility] Work Phone: Absolute Neut # 6.6 10*3/uL 1.8 - 7.0 10*3/uL [facility] Work Phone: Basophils/100 WBC (Bld) 1.1 % 0.0 - 2.0 % [facility] Work Phone: [phone] Eosinophils (Bld) [#/Vol] 0.4 10*3/uL 0.0 - 0.5 10*3/uL [facility] Work Phone: [phone]) [phone] Eosinophils/100 WBC (Bld) 3.9 % 1.0 - 6.0 % [facility] Work Phone: [phone]) 222 Granulocytes/100 WBC (Bld) 64.0 % 40.0 - 80.0 % [facility] Work Phone: [phone]) 222 Hematocrit (Bld) [Volume fraction] 35.1 % Low 40.0 - 52.0 % [facility] Work Phone: [phone]) 222 Hemoglobin (Bld) [Mass/Vol] 11.6 g/dL Low 13.0 - 18.0 g/dL [facility] Work Phone: [phone] Interpretation and review of laboratory results Abnormal [facility] Work Phone: [phone]) 222 Lymphocytes (Bld) [#/Vol] 2.6 10*3/uL 1.0 - 4.3 10*3/uL [facility] Work Phone: [phone]) 222 Lymphocytes/100 WBC (Bld) 25.0 % 20.0 - 40.0 % [facility] Work Phone: [phone]) 222 MCH (RBC) [Entitic mass] 28.4 pg 26.0 - 34.0 pg [facility] Work Phone: [phone] 222 MCHC (RBC) [Mass/Vol] 33.1 % 32.0 - 36.0 % [facility] Work Phone: [phone]) 222 MCV (RBC) [Entitic vol] 85.9 fL 80.0 - 98.0 fL [facility] Work Phone: [phone]) 222 Monocytes (Bld) [#/Vol] 0.6 10*3/uL 0.0 - 0.8 10*3/uL [facility] Work Phone: [phone]) 222 Monocytes/100 WBC (Bld) 6.0 % 2.0 - 10.0 % [facility] Work Phone: [phone] Platelet distribution width (Bld) [Ratio] 17.4 % High 11.5 - 14.5 % [facility] Work Phone: Platelet mean volume (Bld) [Entitic vol] 8.1 fL 7.4 - 12.4 fL [facility] Work Phone: Comment on above: MPV is a calculated measurement using platelet volume ratio. Platelets (Bld) [#/Vol] 450 10*3/uL High 140 - 440 10*3/uL [facility] Work Phone: RBC (Bld) [#/Vol] 4.08 10*6/uL Low 4.40 - 5.9 0 10*6/uL [facility] Work Phone: WBC (Bld) [#/Vol] 10.3 10*3/uL 3.6 - 10.7 10*3/uL [facility] Work Phone: Test Performed by [facility] [employer] [facility], [address] [place], [place] [id number] [place] [address] LAB [facility] Work Phone: CEAon 10-23-2021 CEA 0.8 ng/mL 0.0 - 3.0 ng/mL [facility] Work Phone: Test Performed by [facility] [facility], [address] [place], [place] [id number] [place] [address] LAB [facility] Work Phone: Carcinoembryonic Agon 2021 Carcinoembryonic Ag. 0.8 ng/mL Normal 0.0-3.0 [facility] [employer] Comment on above: Performed By: #### C A19O, LUPUS #### The performing lab is in the report. #### NSEO #### [facility] #### HEMDF, LDH3, BMP3, MG3, PT, CEA2 #### [facility] [address] [place] [address] #### B2GPM, B2GPA, B2GPG #### [place] [address] [place] [address] Hemogram w/ Autodiffon 10-23 Abs Baso Cnt 0.1 10*3/uL Normal 0.0-0.2 [facility] Comment on above: Performed By: #### C A19O, LUPUS #### The performing lab is in the report. #### NSEO #### [facility] #### HEMDF, LDH3, BMP3, MG3, PT, CEA2 #### [facility] [address] [place] [address] #### B2GPM, B2GPA, B2GPG #### [address] [phone] Abs Neutrophile Cnt 6.6 10*3/uL Normal 1.8-7.0 [facility] Comment on above: Performed By: #### C A19O, LUPUS #### The performing lab is in the report. #### NSEO #### [facility] #### HEMDF, LDH3, BMP3, MG3, PT, CEA2 #### [facility] [address] [place] [address] #### B2GPM, B2GPA, B2GPG #### [address] Basophils/100 WBC (Bld) 1.1 % Normal 0.0-2.0 [facility] Comment on above: Performed By: #### C A19O, LUPUS #### The performing lab is in the report. #### NSEO #### [facility] #### HEMDF, LDH3, BMP3, MG3, PT, CEA2 #### [facility] [address] [place] [address] #### B2GPM, B2GPA, B2GPG #### [address] [address] Eosinophils (Bld) [#/Vol] 0.4 10*3/uL Normal 0.0-0.5 [facility] Comment on above: Performed By: #### C A19O, LUPUS #### The performing lab is in the report. #### NSEO #### [facility] #### HEMDF, LDH3, BMP3, MG3, PT, CEA2 #### [facility] [address] [place] [address] #### B2GPM, B2GPA, B2GPG #### [address] [address] Eosinophils/100 WBC (Bld) 3.9 % Normal 1.0-6.0 [facility] Comment on above: Performed By: #### C A19O, LUPUS #### The performing lab is in the report. #### NSEO #### [facility] #### HEMDF, LDH3, BMP3, MG3, PT, CEA2 #### [facility] [address] [place] [address] #### B2GPM, B2GPA, B2GPG #### [address] Erythrocyte distribution width (RBC) [Ratio] 17.4 % High 11.5-14.5 [facility] Comment on above: Performed By: #### C A19O, LUPUS #### The performing lab is in the report. #### NSEO #### [facility] #### HEMDF, LDH3, BMP3, MG3, PT, CEA2 #### [facility] [address] [place] [address] #### B2GPM, B2GPA, B2GPG #### [address] [address] Granulocytes/100 WBC (Bld) 64.0 % Normal 40.0-80.0 [facility] Comment on above: Performed By: #### C A19O, LUPUS #### The performing lab is in the report. #### NSEO #### [facility] #### HEMDF, LDH3, BMP3, MG3, PT, CEA2 #### [facility] [address] [place] [address] #### B2GPM, B2GPA, B2GPG #### [address] Hematocrit (Bld) [Volume fraction] 35.1 % Low 40.0-52.0 [facility] Comment on above: Performed By: #### C A19O, LUPUS #### The performing lab is in the report. #### NSEO #### [facility] #### HEMDF, LDH3, BMP3, MG3, PT, CEA2 #### [place] [address] [place] [address] #### B2GPM, B2GPA, B2GPG #### [address] Hemoglobin (Bld) [Mass/Vol] 11.6 g/dL Low 13.0-18.0 [facility] Comment on above: Performed By: #### C A19O, LUPUS #### The performing lab is in the report. #### NSEO #### [facility] #### HEMDF, LDH3, BMP3, MG3, PT, CEA2 #### [address] [place], [place] #### B2GPM, B2GPA, B2GPG #### [address] Lymphocytes (Bld) [#/Vol] 2.6 10*3/uL Normal 1.0-4.3 [facility] Comment on above: Performed By: #### C A19O, LUPUS #### The performing lab is in the report. #### NSEO #### [facility] #### HEMDF, LDH3, BMP3, MG3, PT, CEA2 #### [address] [place] [address] #### B2GPM, B2GPA, B2GPG #### [address] Lymphocytes/100 WBC (Bld) 25.0 % Normal 20.0-40.0 [facility] Comment on above: Performed By: #### C A19O, LUPUS #### The performing lab is in the report. #### NSEO #### [facility] #### HEMDF, LDH3, BMP3, MG3, PT, CEA2 #### [facility] [address] [place] #### B2GPM, B2GPA, B2GPG #### [address] MCH (RBC) [Entitic mass] 28.4 pg Normal 26.0-34.0 [facility] Comment on above: Performed By: #### C A19O, LUPUS #### The performing lab is in the report. #### NSEO #### [facility] #### HEMDF, LDH3, BMP3, MG3, PT, CEA2 #### [facility] [address] [place] #### B2GPM, B2GPA, B2GPG #### [address] MCHC 33.1 % Normal 32.0-36.0 [facility] Comment on above: Performed By: #### C A19O, LUPUS #### The performing lab is in the report. #### NSEO #### [facility] #### HEMDF, LDH3, BMP3, MG3, PT, CEA2 #### [facility] [address] [place] #### B2GPM, B2GPA, B2GPG #### [address] MCV (RBC) [Entitic vol] 85.9 fL Normal 80.0-98.0 [facility] Comment on above: Performed By: #### C A19O, LUPUS #### The performing lab is in the report. #### NSEO #### [facility] #### HEMDF, LDH3, BMP3, MG3, PT, CEA2 #### [facility] [address] [place] #### B2GPM, B2GPA, B2GPG #### [address] Monocytes (Bld) [#/Vol] 0.6 10*3/uL Normal 0.0-0.8 [facility] Comment on above: Performed By: #### C Sena9Elpidio, LUPUS #### The performing lab is in the report. #### NSEO #### [facility] #### HEMDF, LDH3, BMP3, MG3, PT, CEA2 #### [facility] [address] [place] [address] #### B2GPM, B2GPA, B2GPG #### [address] Monocytes/100 WBC (Bld) 6.0 % Normal 2.0-10.0 [facility] Comment on above: Performed By: #### C Lisseth, LUPUS #### The performing lab is in the report. #### NSEO #### [facility] #### HEMDF, LDH3, BMP3, MG3, PT, CEA2 #### [facility] [address] [place], [place] #### B2GPM, B2GPA, B2GPG #### [address] Platelet mean volume (Bld) [Entitic vol] 8.1 fL Normal 7.4-12.4 [facility] Comment on above: Result Comment: MPV is a calculated measurement using platelet volume ratio. Performed By: #### C Lisseth, LUPUS #### The performing lab is in the report. #### NSEO #### [facility] #### HEMDF, LDH3, BMP3, MG3, PT, CEA2 #### [facility] [address] [place] [address] #### B2GPM, B2GPA, B2GPG #### [address] Platelets (Bld) [#/Vol] 450 10*3/uL High 140-440 [facility] Comment on above: Performed By: #### C A19O, LUPUS #### The performing lab is in the report. #### NSEO #### [facility] #### HEMDF, LDH3, BMP3, MG3, PT, CEA2 #### [facility] [address] [place] #### B2GPM, B2GPA, B2GPG #### [address] RBC (Bld) [#/Vol] 4.08 10*6/uL Low 4.40-5.90 [facility] Comment on above: Performed By: #### C A19O, LUPUS #### The performing lab is in the report. #### NSEO #### [facility] #### HEMDF, LDH3, BMP3, MG3, PT, CEA2 #### [address] [place], [place] #### B2GPM, B2GPA, B2GPG #### [address] WBC (Bld) [#/Vol] 10.3 10*3/uL Normal 3.6-10.7 [facility] Comment on above: Performed By: #### C A19O, LUPUS #### The performing lab is in the report. #### NSEO #### [facility] #### HEMDF, LDH3, BMP3, MG3, PT, CEA2 #### [address] [place] #### B2GPM, B2GPA, B2GPG #### [address] LDHon 10-23-2021 LDH 136 U/L Normal 120-246 [facility] Comment on above: Performed By: #### C A19O, LUPUS #### The performing lab is in the report. #### NSEO #### [facility] #### HEMDF, LDH3, BMP3, MG3, PT, CEA2 #### [place] [address] [place] #### B2GPM, B2GPA, B2GPG #### [address] [address] Lactate Dehydrogenaseon 10-05 LD 136 U/L 120 - 246 U/L [facility] Work Phone: MRI ABDOMEN WO CONTRASTon Patient Name: ANDREW SIFUENTES [facility] ACCESSION EXAM DATE/TIME PROCEDURE ORDERING PROVIDER [id number] 10/23/2021 11:08 EDT MRI Abdomen w/o Contrast [facility] CPT code 44344 Reason For Exam (MRI Abdomen w/o Contrast) [...] Imaging ACCESSION EXAM DATE/TIME PROCEDURE ORDERING PROVIDER [id number] 10/23/2021 11:08 EDT MRI Abdomen w/o Contrast [facility] CPT code 69332 Reason For Exam (MRI Abdomen w/o Contrast) [...] VLADIMIR Transcribed Date and Time: 10/23/2021 4:36 [facility] Work Phone: MRI ABDOMEN WO CONTRASTOrder ed By: Unknown Result on 10-23-2021 [facility] MRI Abdomen w/o Contraston 0 10-23-2021 MRI Abdomen w/o Contrast Patient Name: ANDREW SIFUENTES [facility] ACCESSION EXAM DATE/TIME PROCEDURE ORDERING PROVIDER [id number] 10/23/2021 11:08 EDT MRI Abdomen w/o Contrast [facility] CPT code 59893 Reason For Exam (MRI Abdomen w/o Contrast) [...] Transcribed Date and Time: 10/23/2021 4:36 Normal [facility] Magnesiumon 10-23-2021 Magnesium [Mass/Vol] 2.1 mg/dL Normal 1.6-2.3 [facility] Comment on above: Performed By: #### C A19O, LUPUS #### The performing lab is in the report. #### NSEO #### [facility] #### HEMDF, LDH3, BMP3, MG3, PT, CEA2 #### [facility] [address] [place] [address] #### B2GPM, B2GPA, B2GPG #### [facility] [address] [place] [address] Magnesium [Mass/Vol] 2.1 mg/dL 1.6 - 2 .3 mg/dL [facility] Work Phone: No Panel Informationon 10-23 Test Performed by [facility], [address] [place], [place] [id number] [place] [address] LAB [facility] Work Phone: Prothrombin Timeon 2 INR 1.1 Normal 0.9-1.1 [facility] Comment on above: Result Comment: Harry mmended [...] HEMDF, LDH3, BMP3, MG3, PT, CEA2 #### [facility] [address] [place] [address] #### B2GPM, B2GPA, B2GPG #### [address] [phone] PT Coag (PPP) [Time] 12.2 s High 9.0-12.0 [facility] Comment on above: Result Comment: . Performed By: #### C A19O, LUPUS #### The performing lab is in the report. #### NSEO #### [facility] #### HEMDF, LDH3, BMP3, MG3, PT, CEA2 #### [facility] [address] [place] [address] #### B2GPM, B2GPA, B2GPG #### [address] [address] Protime-INRon 10-23-2021 INR Coag (Bld) [Relative time] 1.1 {INR} [facility] Work Phone: Comment on above: Recommended Anticoag [...] review of laboratory results Abnormal [facility] Work Phone: PT Coag (PPP) [Time] 12.2 s High 9.0 - 12.0 s [facility] Work Phone: Comment on above: . Test Performed by [facility], [address] [place], [place] [id number] [place] [address] LAB [facility] Work Phone: Basic Metabolic Panelon 10-05 Calcium [Mass/Vol] 8.9 mg/dL Normal 8.4-10.4 [facility] Comment on above: Performed By: #### P T #### [facility] [address] [place] [address] Glucose [Mass/Vol] 110 mg/dL High 70-100 [facility] Comment on above: Performed By: #### P T #### [facility] [address] [place] [address] Urea nitrogen [Mass/Vol] 14 mg/dL Normal 7-17 [facility] Comment on above: Performed By: #### P T #### [facility] [address] [place] [address] Anion gap [Moles/Vol] 7 mmol/L Normal 3-13 [facility] Comment on above: Performed By: #### P T #### [facility] [address] [place] [place] [address] CO2 [Moles/Vol] 26 mmol/L Normal 22-30 [facility] Comment on above: Performed By: #### P T #### [facility] [address] [place] [address] Creatinine [Mass/Vol] 0.71 mg/dL Normal 0.52-1.25 [facility] Comment on above: Performed By: #### P T #### [facility] [address] [place] [address] eGFR OTHER > 90.0 Normal >60 [facility] Comment on above: Result Comment: KDIG O [...] secretion. Performed By: #### P T #### [facility] [address] [place] [address] GFR/1.73 sq M.predicted among blacks MDRD (S/P/Bld) [Vol rate/Area] mL/min/{1.73_m2} Normal >60 [facility] Comment on above: Performed By: #### P T #### [facility] [address] [place] [address] Potassium [Moles/Vol] 3.8 mmol/L Normal 3.5-5.1 [facility] Comment on above: Performed By: #### P T #### [facility] [address] [place] [address] Chloride [Moles/Vol] 106 mmol/L Normal 98-107 [facility] Comment on above: Performed By: #### P T #### [facility] [address] [place] [address] Sodium [Moles/Vol] 139 mmol/L Normal 135-145 [facility] Comment on above: Performed By: #### P T #### [facility] [address] [place] [address] Anion gap [Moles/Vol] 7 mmol/L 3 - 13 mmol/L [facility] Calcium [Mass/Vol] 8.9 mg/dL 8.4 - 10. 4 mg/dL [facility] Chloride [Moles/Vol] 106 mmol/L 98 - 10 7 mmol/L [facility] CO2 [Moles/Vol] 26 mmol/L 22 - 30 mmol/L [facility] Creatinine [Mass/Vol] 0.71 mg/dL 0.52 - 1.25 mg/dL [facility] EGFR IF NonAfrican Qatari >90.0 >60 mL/min [facility] Comment on above: KDIGO guidelines pro vide [...] - 10.7 10*3/uL [facility] Test Performed by [facility], [address] [place], [place] [id number] [place] [address] [facility] [address] Abdomen Pelvis Wo Contrluisana ton 10-22-2021 [facility]: [id number] Computed Tomography ACCESSION EXAM DATE/TIME PROCEDURE ORDERING PROVIDER [id number] 10/22/2021 13:[address] Abdomen/Pelvis (No SRIVASTAVAWING KESSLER PO, No IV) CPT code 56690 Reason For Exam (CT Abdomen/Pelvis (No PO, [...] Transcribed Date and Time: 10/22/2021 2:37 GUY ARMENDARIZ RAD Humphrey Melton MD - 10/22/2021 Patient Name: [facility] [id number] Computed Tomography ACCESSION EXAM DATE/TIME PROCEDURE ORDERING PROVIDER [id number] 10/22/2021 13:[address] Abdomen/Pelvis (No SRIVASTAVA, WING PO, No IV) CPT code 80313 Reason For Exam (CT Abdomen/Pelvis (No PO, [...] Abdomen/Pelvis w/o Contrast Patient Name: [id number] Computed Tomography ACCESSION EXAM DATE/TIME PROCEDURE ORDERING PROVIDER [id number] 10/22/2021 13:[address] Abdomen/Pelvis (No SRIVASTAVA, WING PO, No IV) CPT code 77803 Reason For Exam (CT Abdomen/Pelvis (No PO, [...] Transcribed Date and Time: 10/22/2021 2:37 Normal [facility] Hemogram w/ Autodiffon 10-22 Abs Baso Cnt 0.1 10*3/uL Normal 0.0-0.2 [facility] Comment on above: Performed By: #### P T #### [facility] [address] [place] [address] Abs Neutrophile Cnt 6.0 10*3/uL Normal 1.8-7.0 [facility] Comment on above: Performed By: #### P T #### [facility] [address] [place] [address] Basophils/100 WBC (Bld) 1.0 % Normal 0.0-2.0 [facility] Comment on above: Performed By: #### P T #### [facility] [address] [place] [address] Eosinophils (Bld) [#/Vol] 0.3 10*3/uL Normal 0.0-0.5 [facility] Comment on above: Performed By: #### P T #### [facility] [address] [place] [address] Eosinophils/100 WBC (Bld) 3.0 % Normal 1.0-6.0 [facility] Comment on above: Performed By: #### P T #### [facility] [address] [place] [address] Erythrocyte distribution width (RBC) [Ratio] 17.1 % High 11.5-14.5 [facility] Comment on above: Performed By: #### P T #### [facility] [address] [place] [address] Granulocytes/100 WBC (Bld) 64.1 % Normal 40.0-80.0 [facility] Comment on above: Performed By: #### P T #### [facility] [address] [place] [address] Hematocrit (Bld) [Volume fraction] 33.4 % Low 40.0-52.0 [facility] Comment on above: Performed By: #### P T #### [facility] [address] [place] [address] Hemoglobin (Bld) [Mass/Vol] 10.9 g/dL Low 13.0-18.0 [facility] Comment on above: Performed By: #### P T #### [facility] [address] [place] [address] Lymphocytes (Bld) [#/Vol] 2.5 10*3/uL Normal 1.0-4.3 [facility] Comment on above: Performed By: #### P T #### [facility] [address] [place] [address] Lymphocytes/100 WBC (Bld) 26.3 % Normal 20.0-40.0 [facility] Comment on above: Performed By: #### P T #### [facility] [address] [place] [address] MCH (RBC) [Entitic mass] 28.2 pg Normal 26.0-34.0 [facility] Comment on above: Performed By: #### P T #### [facility] [address] [place] [address] MCHC 32.7 % Normal 32.0-36.0 [facility] Comment on above: Performed By: #### P T #### [facility] [address] [place] [address] MCV (RBC) [Entitic vol] 86.3 fL Normal 80.0-98.0 [facility] Comment on above: Performed By: #### P T #### [facility] [address] [place] [address] Monocytes (Bld) [#/Vol] 0.5 10*3/uL Normal 0.0-0.8 [facility] Comment on above: Performed By: #### P T #### [facility] [address] [place] [address] Monocytes/100 WBC (Bld) 5.6 % Normal 2.0-10.0 [facility] Comment on above: Performed By: #### P T #### [facility] [address] [place] [address] Platelet mean volume (Bld) [Entitic vol] 7.6 fL Normal 7.4-12.4 [facility] Comment on above: Result Comment: MPV is a calculated measurement using platelet volume ratio. Performed By: #### P T #### [facility] [address] [place] [address] Platelets (Bld) [#/Vol] 369 10*3/uL Normal 140-440 [facility] Comment on above: Performed By: #### P T #### [facility] [address] [place] [address] RBC (Bld) [#/Vol] 3.87 10*6/uL Low 4.40-5.90 [facility] Comment on above: Performed By: #### P T #### [facility] [address] [place] [address] WBC (Bld) [#/Vol] 9.4 10*3/uL Normal 3.6-10.7 [facility] Comment on above: Performed By: #### P T #### [facility] [address] [place] [address] Magnesiumon 10-22-2021 Magnesium [Mass/Vol] 2.0 mg/dL Normal 1.6-2.3 [facility] Comment on above: Performed By: #### P T #### [facility] [address] [place] [address] Magnesium [Mass/Vol] 2.0 mg/dL 1.6 - 2 .3 mg/dL [facility] No Panel Informationon 10-22 Radiology Study observation (narrative) [facility] Work Phone: Test Performed by [facility], [address] [place], [place] [id number] [place] [address] LAB [facility] Prothrombin Timeon 2 INR 1.1 Normal 0.9-1.1 [facility] Comment on above: Result Comment: Harry mmended [...] HEMDF, LDH3, BMP3, MG3, PT, CEA2 #### [facility] [address] [place] [address] #### B2GPM, B2GPA, B2GPG #### [employer] [employer] [address] [place] [address] PT Coag (PPP) [Time] 11.8 s Normal 9.0-12.0 [facility] [facility] Comment on above: Result Comment: . Performed By: #### C A19O, LUPUS #### The performing lab is in the report. #### NSEO #### [facility] #### HEMDF, LDH3, BMP3, MG3, PT, CEA2 #### [facility] [employer] [facility] [address] [place] [address] #### B2GPM, B2GPA, B2GPG #### [employer] [address] [place] [address] Protime-INRon 10-22-2021 INR Coag (Bld) [Relative time] 1.1 {INR} [facility] Work Phone: Comment on above: Recommended Anticoag [...] [Time] 11.8 s 9.0 - 12.0 s [facility] Work Phone: Comment on above: . Test Performed by [facility] [employer] [facility], [address], [place], [place] [id number] [place] [address] LAB [facility] Work Phone: VL Ankle Art Brachial Indice s Extremity Bilateralon 10-22-2021 [facility] Ankle Brachial Index Report Patient DO MariaB: 1950 Study 10/21/2021 Name: Andrew Gonzalez (71yrs) Date: Age: 71 Account: [id number] Gender: M Loc: 444W BP: Ordering Physician: Shruthi Malik Creative Services Designer: Rody Cross RDMS, RVT Interpreting Physician: Carina Call Location: [facility] Indications: Foot wounds. Originally ordered as a full PVR. Ordering HARDBOARD FACTORY WORKER had to modify the order to ABIs [...] supine position. Images were obtained using a [employer] vascular ultrasound machine. Arterial pressure indices: + [...] electronically signed by Carina Call 10/22/2021 13:21 [facility] Carina Call MD - 10/22/2021 [facility] Ankle Brachial Index Report Patient DO MariaB: 1950 Study 10/21/2021 Name: Andrew Gonzalez (71yrs) Date: Age: 71 Account: [id number] Gender: M Loc: 444W BP: Ordering Physician: Shruthi Malik Creative Services Designer: Rody Cross RDMS, RVT Interpreting Physician: Carina Call Location: [facility] Indications: Foot wounds. Originally ordered as a full PVR. Ordering HARDBOARD FA[employer]ORY WORKER had to modify the order to ABIs [...] supine position. Images were obtained using a [employer] vascular ultrasound machine. Arterial pressure indices: + [...] electronically signed by Carina Call 10/22/2021 13:21 [employer] Work Phone: [employer] Phone: Basic Metabolic Panelon 10-05 Calcium [Mass/Vol] 9.1 mg/dL Normal 8.4-10.4 [facility] [employer] [facility] Comment on above: Performed By: #### C OVAG #### [facility] [address] [place] [address] Anion gap [Moles/Vol] 6 mmol/L Normal 3-13 [facility] Comment on above: Performed By: #### C OVAG #### [facility] [address] [place] [address] CO2 [Moles/Vol] 29 mmol/L Normal 22-30 [facility] [facility] Comment on above: Performed By: #### C OVAG #### [facility] [address] [place] [address] Creatinine [Mass/Vol] 0.90 mg/dL Normal 0.52-1.25 [facility] Comment on above: Performed By: #### C OVAG #### [facility] [facility] [address] [place] [address] GFR/1.73 sq M.predicted among blacks MDRD (S/P/Bld) [Vol rate/Area] mL/min/{1.73_m2} Normal >60 [facility] Comment on above: Performed By: #### C OVAG #### [facility] [address] [place] [address] GFR/1.73 sq M.predicted among non-blacks MDRD (S/P/Bld) [Vol rate/Area] 86.6 mL/min/{1.73_m2} Normal >60 [facility] Comment on above: Result Comment: KDIG O [...] secretion. Performed By: #### C OVAG #### [facility] [address] [place] [address] Glucose [Mass/Vol] 106 mg/dL High 70-100 [facility] Comment on above: Performed By: #### C OVAG #### [facility] [address] [place] [address] Urea nitrogen [Mass/Vol] 18 mg/dL High 7-17 [facility] Comment on above: Performed By: #### C OVAG #### [facility] [address] [place] [address] Chloride [Moles/Vol] 105 mmol/L Normal 98-107 [facility] Comment on above: Performed By: #### C OVAG #### [facility] [address] [place] [address] Potassium [Moles/Vol] 4.3 mmol/L Normal 3.5-5.1 [facility] Comment on above: Performed By: #### C OVAG #### [facility] [address] [place] [address] Sodium [Moles/Vol] 139 mmol/L Normal 135-145 [facility] Comment on above: Performed By: #### C OVAG #### [facility] [address] [place] [address] Anion gap [Moles/Vol] 6 mmol/L 3 - 13 mmol/L [facility] Calcium [Mass/Vol] 9.1 mg/dL 8.4 - 10. 4 mg/dL [facility] Chloride [Moles/Vol] 105 mmol/L 98 - 10 7 mmol/L [facility] CO2 [Moles/Vol] 29 mmol/L 22 - 30 mmol/L [facility] Creatinine [Mass/Vol] 0.9 mg/dL 0.52 - 1.25 mg/dL [facility] EGFR IF NonAfrican Qatari 86.6 mL/min >60 [facility] Comment on above: KDIGO guidelines pro vide [...] - 17 mg/dL [facility] Test Performed by [facility], [address] [place], [place] [id number] [place] [address] LAB [facility] C-Reactive Proteinon 022 CRP [Mass/Vol] 33.5 mg/L High 0.0-9.9 [facility] Comment on above: Result Comment: . Performed By: #### P T #### [facility] [address] [place] [address] CRP [Mass/Vol] 33.5 mg/L High 0.0 - 9.9 mg/L [facility] Comment on above: . Interpretation and review of laboratory results Abnormal [facility] Test Performed by [facility], [address] LAB [facility] CR Calcaneus 2+ Views Lefton 10-21-2021 CR Calcaneus 2+ Views Left Patient Name: ANDREW SIFUENTES Diagnostic Radiology ACCESSION EXAM DATE/TIME PROCEDURE ORDERING PROVIDER [id number] 10/21/2021 15:30 EDT CR Calcaneus 2+ Views [id number] -SHRUTHI MALIK Left CPT code 32178 Reason For Exam (CR Calcaneus 2+ Views [...] Transcribed Date and Time: 10/21/2021 4:33 Normal [facility] CR Chest 1 View Frontalon CR Chest 1 View Frontal Patient Name: ANDREW SIFUENTES Diagnostic Radiology ACCESSION EXAM DATE/TIME PROCEDURE ORDERING PROVIDER [id number] 10/21/2021 08:16 EDT CR Chest 1 View Frontal [id number] MAY BOGGS CPT code 18090 Reason For Exam (CR Chest 1 View [...] Transcribed Date and Time: 10/21/2021 8:33 Normal [facility] D-Dimer, Innovanceon 022 D-Dimer, Innovance 1.51 mg/L High <0.19-0.50 [facility] Comment on above: Result Comment: Inno saba D-Dimer values of <0.50 mg/L FEU can be used in combination with a pre-test probability model (e.g. Well's) to exclude pulmonary embolism (PE) disease, as well as an aid in the diagnosis of deep vein thrombosis (DVT). Performed By: #### P T #### [facility] [address] [place] [address] D-Dimer, Quantitativeon 06 D-Dimer, Quant 1.51 mg/L High <0.19 - 0.50 [facility] Comment on above: Innovance D-Dimer va lues of <0.50 mg/L FEU can be used in combination with a pre-test probability model (e.g. Well's) to exclude pulmonary embolism (PE) disease, as well as an aid in the diagnosis of deep vein thrombosis (DVT). Interpretation and review of laboratory results Abnormal [facility] Test Performed by [facility], [address], [place], [place] [address] [facility] LAB [facility] ED Provider Noteon ED Provider Note [facility] ED EMERGENCY DEPARTMENT ENCOUNTER Pt Name: Andrew [...] (HCC) ? Kidney stone ? Neuropathy ? DIRECTOR CARDIAC (ventriculoperitoneal) shunt status SURGICAL HISTORY Past Surgical [...] and Family: Not on file ? Attends [employer]: Not on file ? Active Member [...] LUNGS: Respirations (more content not included)... Normal [facility] Hemogramon 10-21-2021 Erythrocyte distribution width (RBC) [Ratio] 17.3 % High 11.5-14.5 [facility] Comment on above: Performed By: #### C OVAG #### [facility] [address] [place] [address] Hematocrit (Bld) [Volume fraction] 33.6 % Low 40.0-52.0 [facility] Comment on above: Performed By: #### C OVAG #### [facility] [address] [place] [address] Hemoglobin (Bld) [Mass/Vol] 10.9 g/dL Low 13.0-18.0 [facility] Comment on above: Performed By: #### C OVAG #### [facility] [address] [place] [address] MCH (RBC) [Entitic mass] 27.8 pg Normal 26.0-34.0 [facility] Comment on above: Performed By: #### C OVAG #### [facility] [address] [place] [address] MCHC 32.5 % Normal 32.0-36.0 [facility] Comment on above: Performed By: #### C OVAG #### [facility] [address] [place] [address] MCV (RBC) [Entitic vol] 85.6 fL Normal 80.0-98.0 [facility] Comment on above: Performed By: #### C OVAG #### [facility] [address] [place] [address] Platelet mean volume (Bld) [Entitic vol] 7.7 fL Normal 7.4-12.4 [facility] Comment on above: Result Comment: MPV is a calculated measurement using platelet volume ratio. Performed By: #### C OVAG #### [facility] [address] [place] [address] Platelets (Bld) [#/Vol] 404 10*3/uL Normal 140-440 [facility] Comment on above: Performed By: #### C OVAG #### [facility] [address] [place] [address] RBC (Bld) [#/Vol] 3.93 10*6/uL Low 4.40-5.90 [facility] Comment on above: Performed By: #### C OVAG #### [facility] [address] [place] [address] WBC (Bld) [#/Vol] 11.6 10*3/uL High 3.6-10.7 [facility] Comment on above: Performed By: #### C OVAG #### [facility] [address] [place] [address] Hemogram (CBC)on 10-21-2021 Hematocrit (Bld) [Volume fraction] [...] - 10.7 10*3/uL [facility] Test Performed by [facility], [address] [place], [place] [id number] [place] [address] LAB [facility] NM LUNG VENT/PERFUSION (VQ)o n 10-21-2021 Patient Name: ANDREW SIFUENTES Nuclear Medicine ACCESSION EXAM DATE/TIME PROCEDURE ORDERING PROVIDER [id number] 10/21/2021 07:55 EDT [place] Pulmonary Perfusion [id number] MAY BOGGS w/ Vent Aerosol CPT code 79302 A9567 Reason For Exam (NM Pulmonary Perfusion [...] Medicine ACCESSION EXAM DATE/TIME PROCEDURE ORDERING PROVIDER [id number] 10/21/2021 07:55 EDT [place] Pulmonary Perfusion [id number] MAY BOGGS w/ Vent Aerosol CPT code 55314 A9567 Reason For Exam (NM Pulmonary Perfusion [...] (VQ)O rdered By: Henry Harvey on 10-21-2021 [facility] Work Phone: NM Pulmonary Perfusion w/ Ve nt Aerosol or Gason 10-21-2021 NM Pulmonary Perfusion w/ Vent Aerosol or Gas Patient Name: ANDREW SIFUENTES Nuclear Medicine ACCESSION EXAM DATE/TIME PROCEDURE ORDERING PROVIDER [id number] 10/21/2021 07:55 EDT [place] Pulmonary Perfusion [id number] LilliMAY CASH w/ Vent Aerosol CPT code 34052 A9567 Reason For Exam (NM Pulmonary Perfusion [...] Transcribed Date and Time: 10/21/2021 8:49 Normal [facility] No Panel Informationon 10-21 Radiology Study observation (narrative) [facility] Work Phone: Prothrombin Timeon 2 INR 1.1 Normal 0.9-1.1 [facility] Comment on above: Result Comment: Harry mmended [...] Infarction Performed By: #### C OVAG #### [facility] [address] [place] [address] PT Coag (PPP) [Time] 11.5 s Normal 9.0-12.0 [facility] Comment on above: Result Comment: . Performed By: #### C OVAG #### [facility] [address] [place] [address] Protime-INRon 10-21-2021 INR Coag (Bld) [Relative time] 1.1 {INR} [facility] Comment on above: Recommended Anticoag ulant Therapy: [...] [Time] 11.5 s 9.0 - 12.0 s [facility] Comment on above: . Test Performed by [facility], [address] LAB [facility] Retic Count(%)on 10-21-2021 Retic Count(%) 1.6 Normal [facility] Comment on above: Result Comment: Newb orn < 5% Adults 0.5 - 1.5% Performed By: #### P T #### [facility] [address] [place] [address] Reticulocyteson 10-21-[address] Pct 1.6 [facility] Comment on above: Priddy < 5% Adults 0.5 - 1.5% Test Performed by [facility], [address] [place] [address] LAB [facility] Sed Rateon 10-21-2021 Sed Rate 63 mm/h High 0-10 [facility] Comment on above: Performed By: #### P T #### [facility] [address] [place] [address] Sedimentation Rateon 06-17-2 022 Interpretation and review of laboratory results Abnormal [facility] Sed Rate 63 mm/h High 0 - 10 mm/h [facility] Test Performed by [facility], [address], [place], [place] [id number] [place] [address] LAB [facility] VL CARMELLA Upr/L Extremity Art 1 -2 Levelson 10-21-2021 VL CARMELLA Upr/L Extremity Art 1-2 Levels Patient [facility]: [id number] Ultrasound ACCESSION EXAM DATE/TIME PROCEDURE ORDERING PROVIDER [id number] 10/21/2021 16:12 EDT VL Upr/L Extremity Art [id number] -SHRUTHI MALIK 1-2 Levels CPT code 45692 Reason For Exam (VL Upr/L Extremity Art 1-2 Levels) both lower legs CARMELLA for both feet wounds. Report [facility] Ankle Brachial Index Report Patient DO MariaB: 1950 Study 10/21/2021 Name: Andrew Gonzalez (71yrs) Date: Age: 71 Account: [id number] Gender: M Loc: 444W BP: Ordering Physician: Shruthi Malik Creative Services Designer: Rody Cross RDMS, RVT Interpreting Physician: Carina Call Location: [facility] Indications: Foot wounds. Originally ordered as a full PVR. Ordering HARDBOARD FACTORY WORKER had to modify the order to ABIs [...] supine position. Images were obtained using a [employer] vascular ultrasound machine. Arterial pressure indices: + [...] CARINA HENNESSY Cardiovascular ACCESSION EXAM DATE/TIME PROCEDURE [id number] 10/21/2021 16:12 EDT VL Upr/L Extremity Art 1-2 Levels CPT code 70435 Reason For Exam (VL Upr/L Extremity Art 1-2 Levels) both lower legs CARMELLA for both feet wounds. Report [facility] [place] Ankle Brachial Index Report Patient RADHA Sifuentes: 1950 Study 10/21/2021 Name: Andrew Gonzalez (71yrs) Date: Age: 71 Account: [id number] Cardiovascular Report Gender: M Loc: 444W BP: Ordering Physician: Shruthi Malik Creative Services Designer: Rody Cross RDMS, RVT Interpreting Physician: Carina Call Location: [facility] Indications: Foot wounds. Originally ordered as a full PVR. Ordering HAR[employer]ORY WORKER had to modify the order to ABIs [...] in th (more content not included)... Normal [facility] [employer] VL LOWER EXTREMITY BILATERAL VENOUS DUPLEXon 10-21-2021 [facility] [place] [facility] Lower Extremity Venous Duplex Report Patient DO MariaB: 1950 Study 10/21/2021 Name: Andrew Gonzalez (71yrs) Date: Age: 71 Account: [id number] Gender: M Loc: 444 BP: Ordering Physician: May Cash Creative Services Designer: Rody Cross RDMS, RVT Interpreting Physician: Carina Call Location: [facility] Indications: Bilateral lower leg edema. CRITICAL [...] supine position. Images were obtained using a [employer] vascular ultrasound machine. Venous flow and imaging: [...] + + +R soleal +Patent + +Naun gamino + + +-------- --------+ + (more content not included)... [facility] Carina Call MD - 10/21/2021 [facility] Lower Extremity Venous Duplex Report Patient DO MariaB: 1950 Study 10/21/2021 Name: Andrew Gonzalez (71yrs) Date: Age: 71 Account: [id number] Gender: M Loc: 444 BP: Ordering Physician: May Cash Creative Services Designer: Rody Cross RDMS, RVT Interpreting Physician: Carina Call Location: [facility] Indications: Bilateral lower leg edema. CRITICAL RESULTS: A critical finding, was reported to ATTILA Scherer , by Rody Cross , on 10/21/2021 , [...] supine position. Images were obtained using a [employer] vascular ultrasound machine. Venous flow and imaging: [...] + + +----- (more content not included)... [employer] Work Phone: VL LOWER EXTREMITY BILATERAL VENOUS DUPLEXOrdered By: Carina Call on 10-21-2021 [employer] Work Phone: VL Venous Duplex US Lower Ex t Bilateralon 10-21-2021 VL Venous Duplex US Lower Ext Bilateral Patient Name: ANDREW SIFUENTES Ultrasound ACCESSION EXAM DATE/TIME PROCEDURE ORDERING PROVIDER [id number] 10/21/2021 09:53 EDT VL Venous Duplex US [id number] -MAY CASH Lower Ext Bilateral CPT code 30958 Reason For Exam (VL Venous Duplex US Lower Ext Bilateral) bilateral sqwelling redness Report [facility] Lower Extremity Venous Duplex Report Patient DO MariaB: 1950 Study 10/21/2021 Name: Andrew Gonzalez (71yrs) Date: Age: 71 Account: [id number] Gender: M Loc: 444 BP: Ordering Physician: May Cash Creative Services Designer: Rody Cross RDMS, RVT Interpreting Physician: Carina Call Location: [facility] Indications: Bilateral lower leg edema. CRITICAL [...] supine position. Images were obtained using a [employer] vascular ultrasound machine. Venous flow and imaging: [...] + + (more content not included)... Normal [facility] XR CALCANEUS LEFT (ABHIJEET 2 LIZA CASTELLON)on 10-21-2021 [facility]: [id number] Radiology ACCESSION EXAM DATE/TIME PROCEDURE ORDERING PROVIDER [id number] 10/21/2021 15:30 EDT CR Calcaneus 2+ Views [id number] -SHRUTHI MALIK CPT code 05160 Reason For Exam (CR Calcaneus 2+ Views [...] MD - 10/21/2021 Patient Name: [facility]W [facility]ES [id number] Diagnostic Radiology ACCESSION EXAM DATE/TIME PROCEDURE ORDERING PROVIDER [id number] 10/21/2021 15:30 EDT CR Calcaneus 2+ Views [id number] -SHRUTHI MALIK CPT code 84028 Reason For Exam (CR Calcaneus 2+ Views [...] VIE WS)Ordered By: Carla Wong on 10-21-2021 [facility] Work Phone: XR Chest 1 VWon 10-21-2021 Patient Name: ANDREW SIFUENTES Diagnostic Radiology ACCESSION EXAM DATE/TIME PROCEDURE ORDERING PROVIDER [id number] 10/21/2021 08:16 EDT CR Chest 1 View Frontal [id number] FOSTER CPT code 49337 Reason For Exam (CR Chest 1 View [...] OSAMA Transcribed Date and Time: 10/21/2021 8:33 [facility] RAD Venus Loyd MD - 10/21/2021 Patient Name: ANDREW SIFUENTES Diagnostic Radiology ACCESSION EXAM DATE/TIME PROCEDURE ORDERING PROVIDER [id number] 10/21/2021 08:16 EDT CR Chest 1 View Frontal [id number] LilliMAY CASH CPT code 69527 Reason For Exam (CR Chest 1 View [...] RAMOS Transcribed Date and Time: 10/21/2021 8:33 [facility] Work Phone: XR Chest 1 VWOrdered By: Natalie Loyd on 10-21-2021 [facility] Work Phone: Basophil percentageon 2021 Chloride [Moles/Vol] 108 mmol/L 98-[address] [facility] [address] [facility] Work Phone: Glucose [Mass/Vol] 93 mg/dL 74-106 [facility] Work Phone: Potassium [Moles/Vol] 3.9 mmol/L 3.5-5.1 [facility] Work Phone: Sodium [Moles/Vol] 140 mmol/L 136-145 [facility] Work Phone: WBC (Bld) [#/Vol] 8.7 10*3/uL 4.4-11.0 [facility] Work Phone: Blood erythrocytes count (nu mber/volume)on 10-20-2021 RBC (Bld) [#/Vol] 3.63 10*6/uL 4.6-6.2 [facility] Work Phone: [phone] Blood hemoglobin measurement (mass/volume)on 10-20-2021 Hemoglobin (Bld) [Mass/Vol] 10.1 g/dL 13.0-16.5 [facility] Work Phone: Blood platelet mean volumeon 10-20-2021 Platelet mean volume (Bld) [Entitic vol] 9.8 fL 6.2-12.0 [facility] Work Phone: Determination of erythrocyte mean corpuscular volume (MCV)on 10-20-2021 MCV (RBC) [Entitic vol] 90.1 fL 80-94 [facility] Work Phone: Hematocrit Auto (Bld) [Volum e fraction]on 10-20-2021 Hematocrit (Bld) [Volume fraction] 32.7 % 40-54 [facility] Work Phone: Laboratory - Chemistry and C hemistry - challengeon 10-20-2021 CO2 [Moles/Vol] 25.0 mmol/L 21.0-32.0 [facility] Work Phone: Urea nitrogen/Creatinine [Mass ratio] 17.4 mg/mg 10-20 [facility] Work Phone: Laboratory - Hematology and Cell countson 10-20-2021 Erythrocyte distribution width (RBC) [Entitic vol] 52.1 fL 35.1-43.9 [facility] Work Phone: Erythrocyte distribution width (RBC) [Ratio] 15.6 % 11.6-14.6 [facility] Work Phone: MCH (RBC) [Entitic mass] 27.8 pg 27.0-32.0 [facility] Work Phone: MCHC Auto (RBC) [Mass/Vol]on 10-20-2021 MCHC (RBC) [Mass/Vol] 30.9 g/dL 32-36 [facility] Work Phone: No Panel Informationon 10-20 Estimated GFR (MDRD) Amer 133 mL/min >60 [facility] Work Phone: Comment on above: GFR Calc Estimated GFR (MDRD) Non-Af Amer 110 mL/min >60 [facility] Work Phone: Comment on above: Non- GFR Calc Platelets bldon 10-20-2021 Platelets (Bld) [#/Vol] 404 10*3/uL 150-450 [facility] Work Phone: Serum or plasma calcium oral urement (mass/volume)on 10-20-2021 Calcium [Mass/Vol] 9.1 mg/dL 8.5-10.1 [facility] Work Phone: Serum or plasma creatinine m easurement (mass/volume)on 10-20-2021 Creatinine [Mass/Vol] 0.75 mg/dL 0.70-1.30 [facility] Work Phone: Comment on above: The validity of the calculated GFR & GFRAA in patients over 70 years has not been determined. Clinical correlation is essential. Serum or plasma urea nitroge n measurement (mass/volume)on 10-20-2021 Urea nitrogen [Mass/Vol] 13 mg/dL 7-18 [facility] Work Phone: Thin prep Papanicolaou smear with manual screeningon 10-20-2021 Thin prep Papanicolaou smear with manual screening 7 5-15 [facility] Work Phone: CNPNon 10-17-2021 CNPN Normal [facility] Absolute lymphocyte counton 09-19-2021 Lymphocytes Auto (Unsp spec) [#/Vol] 1.74 10*3/uL 0.83-4.51 [facility] Work Phone: [phone] Basophil percentageon 2021 Basophils/100 WBC (Bld) 0.6 % 0-1 [facility] Work Phone: Bilirubin [Mass/Vol] 0.30 mg/dL 0.20-1.00 [facility] Work Phone: Comment on above: For patients on eltr ombopag therapy, use of Dimension [place] TBIL is not recommended. Chloride [Moles/Vol] 105 mmol/L 98-107 [facility] Work Phone: Eosinophils/100 WBC (Bld) 3.5 % 0-5 [facility] Work Phone: Glucose [Mass/Vol] 91 mg/dL 74-106 [facility] Work Phone: Neutrophils (Bld) [#/Vol] 4.2 10*3/uL 2.0-7.7 [facility] Work Phone: Neutrophils/100 WBC (Bld) 62.6 % 47-70 [facility] Work Phone: Potassium [Moles/Vol] 3.8 mmol/L 3.5-5.1 [facility] Work Phone: Protein [Mass/Vol] 6.3 g/dL 6.4-8.2 [facility] Work Phone: Sodium [Moles/Vol] 139 mmol/L 136-145 [facility] Work Phone: WBC (Bld) [#/Vol] 6.6 10*3/uL 4.4-11.0 [facility] Work Phone: Blood erythrocytes count (nu mber/volume)on 09-19-2021 RBC (Bld) [#/Vol] 3.47 10*6/uL 4.6-6.2 [facility] Work Phone: Blood hemoglobin measurement (mass/volume)on 09-19-2021 Hemoglobin (Bld) [Mass/Vol] 10.2 g/dL 13.0-16.5 [facility] Work Phone: Blood lymphocytes/100 leukoc yteson 09-19-2021 Lymphocytes/100 WBC (Bld) 26.2 % 19-41 [facility] Work Phone: Blood monocytes/100 leukocyt eson 09-19-2021 Monocytes/100 WBC (Bld) 6.5 % 0-10 [facility] Work Phone: Blood platelet mean volumeon 09-19-2021 Platelet mean volume (Bld) [Entitic vol] 9.6 fL 6.2-12.0 [facility] Work Phone: Determination of erythrocyte mean corpuscular volume (MCV)on 09-19-2021 MCV (RBC) [Entitic vol] 94.8 fL 80-94 [facility] Work Phone: [phone] Hematocrit Auto (Bld) [Volum e fraction]on 09-19-2021 Hematocrit (Bld) [Volume fraction] 32.9 % 40-54 [facility] Work Phone: Laboratory - Chemistry and C hemistry - challengeon 09-19-2021 ALP [Catalytic activity/Vol] 109 U/L 45-117 [facility] Work Phone: ALT [Catalytic activity/Vol] 23 U/L 16-61 [facility] Work Phone: CO2 [Moles/Vol] 26.0 mmol/L 21.0-32.0 [facility] Work Phone: Globulin (S) [Mass/Vol] 3.5 g/dL 2.2-4.2 [facility] Work Phone: Urea nitrogen/Creatinine [Mass ratio] 15.3 mg/mg 10-20 [facility] Work Phone: Laboratory - Hematology and Cell countson 09-19-2021 Erythrocyte distribution width (RBC) [Entitic vol] 59.4 fL 35.1-43.9 [facility] Work Phone: Erythrocyte distribution width (RBC) [Ratio] 17.1 % 11.6-14.6 [facility] Work Phone: Immature granulocytes/100 WBC (Bld) 0.600 % 0.0-0.9 [facility] Work Phone: Comment on above: IG% - Immature Granu locytes (promyelocytes, myelocytes and metamyelocytes) > 1% indicates that a LEFT SHIFT is Present. MCH (RBC) [Entitic mass] 29.4 pg 27.0-32.0 [facility] Work Phone: Nucleated RBC/100 WBC (Bld) [Ratio] 0 % 0-5 [facility] Work Phone: MCHC Auto (RBC) [Mass/Vol]on 09-19-2021 MCHC (RBC) [Mass/Vol] 31.0 g/dL 32-36 [facility] Work Phone: No Panel Informationon 09-19 Estimated GFR (MDRD) Amer 175 mL/min >60 [facility] Work Phone: Comment on above: GFR Calc Estimated GFR (MDRD) Non-Af Amer 145 mL/min >60 [facility] Work Phone: Comment on above: Non- GFR Calc Platelets bldon 05-16-2022 Platelets (Bld) [#/Vol] 342 10*3/uL 150-450 [facility] Work Phone: Serum or plasma albumin oral urement (mass/volume)on 09-19-2021 Albumin [Mass/Vol] 2.8 g/dL 3.2-5.0 [facility] Work Phone: Serum or plasma albumin/glob ulin mass ratioon 09-19-2021 Albumin/Globulin [Mass ratio] 0.8 {ratio} 0.9-2.4 [facility] Work Phone: Serum or plasma calcium oral urement (mass/volume)on 09-19-2021 Calcium [Mass/Vol] 9.0 mg/dL 8.5-10.1 [facility] Work Phone: Serum or plasma creatinine m easurement (mass/volume)on 09-19-2021 Creatinine [Mass/Vol] 0.59 mg/dL 0.70-1.30 [facility] Work Phone: Comment on above: The validity of the calculated GFR & GFRAA in patients over 70 years has not been determined. Clinical correlation is essential. Serum or plasma urea nitroge n measurement (mass/volume)on 09-19-2021 Urea nitrogen [Mass/Vol] 9 mg/dL 7-18 [facility] Work Phone: Thin prep Papanicolaou smear with manual screeningon 09-19-2021 Thin prep Papanicolaou smear with manual screening 12 U/L 15-37 [facility] Work Phone: Thin prep Papanicolaou smear with manual screening 8 5-15 [facility] Work Phone: OPERATIVE NOon 08-22-2021 OPERATIVE NO Normal [facility] Basic metabolic 2000 panelon 08-19-2021 Anion gap [Moles/Vol] 10 mmol/L Normal 9-18 [facility] Comment on above: Order Comment: Speci men Type: BLOOD SPECIMENOrdering Facility: [facility] Address: [address], [place] [address] Performed By: #### 2 4321-2 ####[facility] LABORATORYCLIA [id number] [address] [place] Calcium [Mass/Vol] 8.6 mg/dL Normal 8.5-10.2 [facility] Comment on above: Order Comment: Speci men Type: BLOOD SPECIMENOrdering Facility: [facility] Address: [address] [place] [address] Performed By: #### 2 4321-2 ####[facility] LABORATORYCLIA [id number] [place] [address] [place] Chloride [Moles/Vol] 99 mmol/L Normal 97-105 [facility] Comment on above: Order Comment: Speci men Type: BLOOD SPECIMENOrdering Facility: [facility] Address: [address] [place] [address] Performed By: #### 2 4321-2 ####[facility] LABORATORYCLIA [id number] [address] [place] CO2 [Moles/Vol] 29 mmol/L Normal 22-30 [facility] Comment on above: Order Comment: Speci men Type: BLOOD SPECIMENOrdering Facility: [facility] Address: [address] [place] [address] Performed By: #### 2 4321-2 ####[facility] LABORATORYCLIA [id number] [address] [place] Creatinine [Mass/Vol] 0.58 mg/dL Low 0.73-1.22 [facility] Comment on above: Order Comment: Speci men Type: BLOOD SPECIMENOrdering Facility: [facility] Address: [address] [place] [address] Performed By: #### 2 4321-2 ####[facility] LABORATORYCLIA [id number] [address] [place] ESTIMATED GLOMERULAR FILTRATION RATE 106 mL/min/1.73m??? Normal >=60 [facility] Comment on above: Order Comment: Speci men Type: BLOOD SPECIMENOrdering Facility: [facility] Address: [address] [place] [id number] Result Comment: Luzmaria mated Glomerular Filtration Rate [...] actual GFR. Performed By: #### 2 4321-2 ####[facility] LABORATORYCLIA [id number] [place] [address] [place] Glucose [Mass/Vol] 101 mg/dL High 74-99 [facility] Comment on above: Order Comment: Shira feldman Type: BLOOD SPECIMENOrdering Facility: [facility] Address: [address] [place] [id number] Result Comment: The [place] [employer] Association (ADA) provides guidance for cutoff [...] Standards of Medical Care in Diabetes 2016, [place] [employer]. Diabetes Care. 2016.39(Suppl 1). Performed By: #### 2 4321-2 ####[facility] LABORATORYCLIA [id number] [place] [address] [place] Potassium [Moles/Vol] 3.5 mmol/L Low 3.7-5.1 [facility] Comment on above: Order Comment: Shira feldman Type: BLOOD SPECIMENOrdering Facility: [facility] Address: [address] [place] [phone] Performed By: #### 2 4321-2 ####[facility] LABORATORYCLIA [id number] [address] [place] Sodium [Moles/Vol] 138 mmol/L Normal 136-144 [facility] Comment on above: Order Comment: Speci men Type: BLOOD SPECIMENOrdering Facility: [facility] Address: [address] [place] [address] Performed By: #### 2 4321-2 ####[facility] LABORATORYCLIA [id number] [place] [address] [place] Urea nitrogen [Mass/Vol] 11 mg/dL Normal 9-24 [facility] Comment on above: Order Comment: Speci men Type: BLOOD SPECIMENOrdering Facility: [facility] Address: [address] [place] [address] Performed By: #### 2 4321-2 ####[facility] LABORATORYCLIA [id number] [address] [place] [facility] CASE MANAGEMon 08-19-2021 CASE MANAGEM Normal [facility] CBC W Auto Differential pane l (Bld)on 08-19-2021 Basophils (Bld) [#/Vol] 0.03 10*3/uL Normal <0.11 [facility] Comment on above: Order Comment: Speci men Type: BLOOD SPECIMENOrdering Facility: [facility] Address: [address] [place] [address] Performed By: #### 5 7021-8 ####[facility] LABORATORYCLIA [id number] [address] [place] Basophils/100 WBC (Bld) 0.4 % Normal [facility] Comment on above: Order Comment: Speci men Type: BLOOD SPECIMENOrdering Facility: [facility] Address: [address] [place] [address] Performed By: #### 5 7021-8 ####[facility] LABORATORYCLIA [id number] [address] [place] Differential cell count method Nom (Bld) Auto Normal [facility] Comment on above: Order Comment: Speci men Type: BLOOD SPECIMENOrdering Facility: [facility] Address: [address] [place] [place] [address] Performed By: #### 5 7021-8 ####[facility] LABORATORYCLIA [id number] [address] STATES OF [facility] Eosinophils (Bld) [#/Vol] 0.24 10*3/uL Normal <0.46 [facility] Comment on above: Order Comment: Speci men Type: BLOOD SPECIMENOrdering Facility: [facility] Address: [address] [place] [address] Performed By: #### 5 7021-8 ####[facility] LABORATORYCLIA [id number] [address] Eosinophils/100 WBC (Bld) 3.1 % Normal [facility] Comment on above: Order Comment: Speci men Type: BLOOD SPECIMENOrdering Facility: [facility] Address: [address] [place] [address] Performed By: #### 5 7021-8 ####[facility] LABORATORYCLIA [id number] [address] Erythrocyte distribution width (RBC) [Ratio] 17.5 % High 11.5-15.0 [facility] Comment on above: Order Comment: Speci men Type: BLOOD SPECIMENOrdering Facility: [facility] Address: [address] [place] [address] Performed By: #### 5 7021-8 ####[facility] LABORATORYCLIA [id number] [address] Hematocrit (Bld) [Volume fraction] 30.2 % Low 39.0-51.0 [facility] Comment on above: Order Comment: Speci men Type: BLOOD SPECIMENOrdering Facility: [facility] Address: [address] [place] [address] Performed By: #### 5 7021-8 ####[facility] LABORATORYCLIA [id number] [address] [place] Hemoglobin (Bld) [Mass/Vol] 9.6 g/dL Low 13.0-17.0 [facility] Comment on above: Order Comment: Speci men Type: BLOOD SPECIMENOrdering Facility: [facility] Address: [address] [place] [address] Performed By: #### 5 7021-8 ####[facility]ORATORYCLIA [id number] [address] IMMATURE GRAN % 0.4 % Normal [facility] Comment on above: Order Comment: Speci men Type: BLOOD SPECIMENOrdering Facility: [facility] Address: [address] [place] [address] Performed By: #### 5 7021-8 ####[facility]ORATORYCLIA [id number] [address] IMMATURE GRAN ABS 0.03 k/uL Normal <0.10 [facility] Comment on above: Order Comment: Speci men Type: BLOOD SPECIMENOrdering Facility: [facility] Address: [address] [place] [address] Performed By: #### 5 7021-8 ####[facility]ORATORYCLIA [id number] [address] [place] Lymphocytes (Bld) [#/Vol] 1.71 10*3/uL Normal 1.00-4.00 [facility] Comment on above: Order Comment: Speci men Type: BLOOD SPECIMENOrdering Facility: [facility] Address: [address] [place] [address] Performed By: #### 5 7021-8 ####[facility]ORATORYCLIA [id number] [address] Lymphocytes/100 WBC (Bld) 22.2 % Normal [facility] Comment on above: Order Comment: Speci men Type: BLOOD SPECIMENOrdering Facility: [facility] Address: [address] [place] [address] Performed By: #### 5 7021-8 ####[facility]ORATORYCLIA [id number] [address] MCH (RBC) [Entitic mass] 29.4 pg Normal 26.0-34.0 [facility] Comment on above: Order Comment: Speci men Type: BLOOD SPECIMENOrdering Facility: [facility] Address: [address] [place] [address] Performed By: #### 5 7021-8 ####[facility]ORATORYCLIA [id number] [address] [place] MCHC (RBC) [Mass/Vol] 31.8 g/dL Normal 30.5-36.0 [facility] Comment on above: Order Comment: Speci men Type: BLOOD SPECIMENOrdering Facility: [facility] Address: [address] [place] [address] Performed By: #### 5 7021-8 ####[facility]ORATORYCLIA [id number] [address] MCV (RBC) [Entitic vol] 92.6 fL Normal 80.0-100.0 [facility] Comment on above: Order Comment: Speci men Type: BLOOD SPECIMENOrdering Facility: [facility] Address: [address] [place] [address] Performed By: #### 5 7021-8 ####[facility] LABORATORYCLIA [id number] [address] OF [facility] Monocytes (Bld) [#/Vol] 0.50 10*3/uL Normal <0.87 [facility] Comment on above: Order Comment: Speci men Type: BLOOD SPECIMENOrdering Facility: [facility] Address: [address] [place] [address] Performed By: #### 5 7021-8 ####[facility]ORATORYCLIA [id number] [address] Monocytes/100 WBC (Bld) 6.5 % Normal [facility] Comment on above: Order Comment: Speci men Type: BLOOD SPECIMENOrdering Facility: [facility] Address: [address] [address] Performed By: #### 5 7021-8 ####[facility]ORATORYCLIA [id number] [address] [place] Neutrophils (Bld) [#/Vol] 5.20 10*3/uL Normal 1.45-7.50 [facility] Comment on above: Order Comment: Speci men Type: BLOOD SPECIMENOrdering Facility: [facility] Address: [address] [place] [address] Performed By: #### 5 7021-8 ####[facility]ORATORYCLIA [id number] [address] STATES [facility] Neutrophils/100 WBC (Bld) 67.4 % Normal [facility] Comment on above: Order Comment: Speci men Type: BLOOD SPECIMENOrdering Facility: [facility] Address: [address] [place] [address] Performed By: #### 5 7021-8 ####[facility]ORATORYCLIA [id number] [address] [place] Nucleated RBC (Bld) [#/Vol] 10*3/uL Normal <0.01 [facility] Comment on above: Order Comment: Speci men Type: BLOOD SPECIMENOrdering Facility: [facility] Address: [address] [place] [address] Performed By: #### 5 7021-8 ####[facility]ORATORYCLIA [id number] [address] [place] Nucleated RBC/100 WBC (Bld) [Ratio] 0.0 /100 WBC Normal [facility] Comment on above: Order Comment: Speci men Type: BLOOD SPECIMENOrdering Facility: [facility] Address: [address] [place] [address] Performed By: #### 5 7021-8 ####[facility]ORATORYCLIA [id number] [address] [place] Platelet mean volume (Bld) [Entitic vol] 8.9 fL Low 9.0-12.7 [facility] Comment on above: Order Comment: Speci men Type: BLOOD SPECIMENOrdering Facility: [facility] Address: [address] [place] [address] Performed By: #### 5 7021-8 ####[facility]ORATORYCLIA [id number] [address] [place] Platelets (Bld) [#/Vol] 408 10*3/uL High 150-400 [facility] Comment on above: Order Comment: Speci men Type: BLOOD SPECIMENOrdering Facility: [facility] Address: [address] [place] [address] Performed By: #### 5 7021-8 ####[facility] LABORATORYCLIA [id number] [address] [place] RBC (Bld) [#/Vol] 3.26 10*6/uL Low 4.20-6.00 [facility] Comment on above: Order Comment: Speci men Type: BLOOD SPECIMENOrdering Facility: [facility] Address: [address] [place] [address] Performed By: #### 5 7021-8 ####[facility] LABORATORYCLIA [id number] [address] OF [facility] WBC (Bld) [#/Vol] 7.71 10*3/uL Normal 3.70-11.00 [facility] Comment on above: Order Comment: Speci men Type: BLOOD SPECIMENOrdering Facility: [facility] Address: [address] [place] [address] Performed By: #### 5 7021-8 ####[facility]ORATORYCLIA [id number] [address] [place] CNDSon 08-19-2021 CNDS Normal [facility] CONSULT PROGon 08-19-2021 CONSULT PROG Normal [facility] THERAPY NTon 08-19-2021 THERAPY NT Normal [facility] Basic metabolic 2000 panelon 08-18-2021 Anion gap [Moles/Vol] 11 mmol/L Normal 9-18 [facility] Comment on above: Order Comment: Speci men Type: BLOOD SPECIMENOrdering Facility: [facility] Address: [address] [place] [address] Performed By: #### 2 4321-2 ####[facility] LABORATORYCLIA [id number] [place] [address] [place] Calcium [Mass/Vol] 8.6 mg/dL Normal 8.5-10.2 [facility] Comment on above: Order Comment: Speci men Type: BLOOD SPECIMENOrdering Facility: [facility] Address: [address] [place] [address] Performed By: #### 2 4321-2 ####[facility]ORATORYCLIA [id number] [place] [address] [place] Chloride [Moles/Vol] 98 mmol/L Normal 97-105 [facility] Comment on above: Order Comment: Speci men Type: BLOOD SPECIMENOrdering Facility: [facility] Address: [address] [place] [address] Performed By: #### 2 4321-2 ####[facility]ORATORYCLIA [id number] [place] [address] [place] CO2 [Moles/Vol] 28 mmol/L Normal 22-30 [facility] Comment on above: Order Comment: Speci men Type: BLOOD SPECIMENOrdering Facility: [facility] Address: [address] [place] [address] Performed By: #### 2 4321-2 ####[facility]ORATORYCLIA [id number] [place] [address] [place] Creatinine [Mass/Vol] 0.56 mg/dL Low 0.73-1.22 [facility] Comment on above: Order Comment: Speci men Type: BLOOD SPECIMENOrdering Facility: [facility] Address: [address] [place] [address] Performed By: #### 2 4321-2 ####[facility]ORATORYCLIA [id number] [place] [address] [place] ESTIMATED GLOMERULAR FILTRATION RATE 107 mL/min/1.73m??? Normal >=60 [facility] Comment on above: Order Comment: Shira feldman Type: BLOOD SPECIMENOrdering Facility: [facility] Address: [address] [place] [address] Result Comment: Luzmaria mated Glomerular Filtration Rate [...] actual GFR. Performed By: #### 2 4321-2 ####[facility]ORATORYCLIA [id number] [place] [address] [place] Glucose [Mass/Vol] 113 mg/dL High 74-99 [facility] Comment on above: Order Comment: Shira feldman Type: BLOOD SPECIMENOrdering Facility: [facility] Address: [address] [place] [address] Result Comment: The [place] [employer] (ADA) provides guidance for cutoff [...] Standards of Medical Care in Diabetes 2016, [place] [employer]. Diabetes Care. 2016.39(Suppl 1). Performed By: #### 2 4321-2 ####[facility]ORATORYCLIA [id number] [place] [address] [place] Potassium [Moles/Vol] 3.5 mmol/L Low 3.7-5.1 [facility] Comment on above: Order Comment: Speci men Type: BLOOD SPECIMENOrdering Facility: [facility] Address: [address] [place] [address] Performed By: #### 2 4321-2 ####[facility] LABORATORYCLIA [id number] [address] STATES [facility] Sodium [Moles/Vol] 137 mmol/L Normal 136-144 [facility] Comment on above: Order Comment: Speci men Type: BLOOD SPECIMENOrdering Facility: [facility] Address: [address] [place] [address] Performed By: #### 2 4321-2 ####[facility]ORATORYCLIA [id number] [address] STATES [facility] Urea nitrogen [Mass/Vol] 10 mg/dL Normal 9-24 [facility] Comment on above: Order Comment: Speci men Type: BLOOD SPECIMENOrdering Facility: [facility] Address: [address] [place] [address] Performed By: #### 2 4321-2 ####[facility]ORATORYCLIA [id number] [address] STATES [facility] CBC W Auto Differential pane l (Bld)on 08-18-2021 Basophils (Bld) [#/Vol] 10*3/uL Normal <0.11 [facility] Comment on above: Order Comment: Speci men Type: BLOOD SPECIMENOrdering Facility: [facility] Address: [address] [place] [address] Performed By: #### 5 7021-8 ####[facility]ORATORYCLIA [id number] [address] STATES [facility] Basophils/100 WBC (Bld) 0.3 % Normal [facility] Comment on above: Order Comment: Speci men Type: BLOOD SPECIMENOrdering Facility: [facility] Address: [address] [place] [address] Performed By: #### 5 7021-8 ####[facility]ORATORYCLIA [id number] [place] [address] [place] Differential cell count method Nom (Bld) Auto Normal [facility] Comment on above: Order Comment: Speci men Type: BLOOD SPECIMENOrdering Facility: [facility] Address: [address] [place] [address] Performed By: #### 5 7021-8 ####[facility]ORATORYCLIA [id number] [address] STATES [place] Eosinophils (Bld) [#/Vol] 0.37 10*3/uL Normal <0.46 [facility] Comment on above: Order Comment: Speci men Type: BLOOD SPECIMENOrdering Facility: [facility] Address: [address] [place] [address] Performed By: #### 5 7021-8 ####[facility]ORATORYCLIA [id number] [address] Eosinophils/100 WBC (Bld) 4.8 % Normal [facility] Comment on above: Order Comment: Speci men Type: BLOOD SPECIMENOrdering Facility: [facility] Address: [address] [place] [address] Performed By: #### 5 7021-8 ####[facility]ORATORYCLIA [id number] [address] [place] Erythrocyte distribution width (RBC) [Ratio] 17.5 % High 11.5-15.0 [facility] Comment on above: Order Comment: Speci men Type: BLOOD SPECIMENOrdering Facility: [facility] Address: [address] [place] [address] Performed By: #### 5 7021-8 ####[facility]ORATORYCLIA [id number] [address] [place] Hematocrit (Bld) [Volume fraction] 30.2 % Low 39.0-51.0 [facility] Comment on above: Order Comment: Speci men Type: BLOOD SPECIMENOrdering Facility: [facility] Address: [address] [place] [address] Performed By: #### 5 7021-8 ####[facility]ORATORYCLIA [id number] [address] [place] Hemoglobin (Bld) [Mass/Vol] 9.5 g/dL Low 13.0-17.0 [facility] Comment on above: Order Comment: Speci men Type: BLOOD SPECIMENOrdering Facility: [facility] Address: [address] [place] [address] Performed By: #### 5 7021-8 ####[facility]ORATORYCLIA [id number] [address] IMMATURE GRAN % 0.4 % Normal [facility] Comment on above: Order Comment: Speci men Type: BLOOD SPECIMENOrdering Facility: [facility] Address: [address] [place] [address] Performed By: #### 5 7021-8 ####[facility]ORATORYCLIA [id number] [address] IMMATURE GRAN ABS 0.03 k/uL Normal <0.10 [facility] Comment on above: Order Comment: Speci men Type: BLOOD SPECIMENOrdering Facility: [facility] Address: [address] [place] [address] Performed By: #### 5 7021-8 ####[facility]ORATORYCLIA [id number] [address] [place] Lymphocytes (Bld) [#/Vol] 1.85 10*3/uL Normal 1.00-4.00 [facility] Comment on above: Order Comment: Speci men Type: BLOOD SPECIMENOrdering Facility: [facility] Address: [address] [place] [address] Performed By: #### 5 7021-8 ####[facility]ORATORYCLIA [id number] [address] Lymphocytes/100 WBC (Bld) 23.8 % Normal [facility] Comment on above: Order Comment: Speci men Type: BLOOD SPECIMENOrdering Facility: [facility] Address: [address] [place] [address] Performed By: #### 5 7021-8 ####[facility]ORATORYCLIA [id number] [address] MCH (RBC) [Entitic mass] 29.5 pg Normal 26.0-34.0 [facility] Comment on above: Order Comment: Speci men Type: BLOOD SPECIMENOrdering Facility: [facility] Address: [address] [place] [address] Performed By: #### 5 7021-8 ####[facility]ORATORYCLIA [id number] [address] MCHC (RBC) [Mass/Vol] 31.5 g/dL Normal 30.5-36.0 [facility] Comment on above: Order Comment: Speci men Type: BLOOD SPECIMENOrdering Facility: [facility] Address: [address] [place] [address] Performed By: #### 5 7021-8 ####[facility]ORATORYCLIA [id number] [address] MCV (RBC) [Entitic vol] 93.8 fL Normal 80.0-100.0 [facility] Comment on above: Order Comment: Speci men Type: BLOOD SPECIMENOrdering Facility: [facility] Address: [address] [place] [address] Performed By: #### 5 7021-8 ####[facility]ORATORYCLIA [id number] [address] Monocytes (Bld) [#/Vol] 0.49 10*3/uL Normal <0.87 [facility] Comment on above: Order Comment: Speci men Type: BLOOD SPECIMENOrdering Facility: [facility] Address: [address] [place] [address] Performed By: #### 5 7021-8 ####[facility]ORATORYCLIA [id number] [address] Monocytes/100 WBC (Bld) 6.3 % Normal [facility] Comment on above: Order Comment: Speci men Type: BLOOD SPECIMENOrdering Facility: [facility] Address: [address] [place] [address] Performed By: #### 5 7021-8 ####[facility]ORATORYCLIA [id number] [address] [place] Neutrophils (Bld) [#/Vol] 5.00 10*3/uL Normal 1.45-7.50 [facility] Comment on above: Order Comment: Speci men Type: BLOOD SPECIMENOrdering Facility: [facility] Address: [address] [place] [address] Performed By: #### 5 7021-8 ####[facility]ORATORYCLIA [id number] [address] Neutrophils/100 WBC (Bld) 64.4 % Normal [facility] Comment on above: Order Comment: Speci men Type: BLOOD SPECIMENOrdering Facility: [facility] Address: [address] [place] [address] Performed By: #### 5 7021-8 ####[facility]ORATORYCLIA [id number] [address] Nucleated RBC (Bld) [#/Vol] 10*3/uL Normal <0.01 [facility] Comment on above: Order Comment: Speci men Type: BLOOD SPECIMENOrdering Facility: [facility] Address: [address] [place] [address] Performed By: #### 5 7021-8 ####[facility]ATORYCLIA [id number] [address] Nucleated RBC/100 WBC (Bld) [Ratio] 0.0 /100 WBC Normal [facility] Comment on above: Order Comment: Speci men Type: BLOOD SPECIMENOrdering Facility: [facility] Address: [address] [place] [address] Performed By: #### 5 7021-8 ####[facility]ORATORYCLIA [id number] [place] [address] [place] Platelet mean volume (Bld) [Entitic vol] 9.1 fL Normal 9.0-12.7 [facility] Comment on above: Order Comment: Speci men Type: BLOOD SPECIMENOrdering Facility: [facility] Address: [address] [place] [address] Performed By: #### 5 7021-8 ####[facility]ORATORYCLIA [id number] [place] [address] [place] Platelets (Bld) [#/Vol] 391 10*3/uL Normal 150-400 [facility] Comment on above: Order Comment: Speci men Type: BLOOD SPECIMENOrdering Facility: [facility] Address: [address] [place] [address] Performed By: #### 5 7021-8 ####[facility]ORATORYCLIA [id number] [place] [address] [place] RBC (Bld) [#/Vol] 3.22 10*6/uL Low 4.20-6.00 [facility] Comment on above: Order Comment: Speci men Type: BLOOD SPECIMENOrdering Facility: [facility] Address: [address] [place] [address] Performed By: #### 5 7021-8 ####[facility]ORATORYCLIA [id number] [address] [place] WBC (Bld) [#/Vol] 7.76 10*3/uL Normal 3.70-11.00 [facility] Comment on above: Order Comment: Speci men Type: BLOOD SPECIMENOrdering Facility: [facility] Address: [address] [place] [address] Performed By: #### 5 7021-8 ####[facility]ORATORYCLIA [id number] [address] [place] CONSULT PROGon 08-18-2021 CONSULT PROG Normal [facility] CASE MANAGEMon 08-17-2021 CASE MANAGEM Normal [facility] CBC W Auto Differential pane l (Bld)on 08-17-2021 Basophils (Bld) [#/Vol] 0.04 10*3/uL Normal <0.11 [facility] Comment on above: Order Comment: Speci men Type: BLOOD SPECIMENOrdering Facility: [facility] Address: [address] [place] [address] Performed By: #### 5 7021-8 ####[facility]ORATORYCLIA [id number] [address] [place] Basophils/100 WBC (Bld) 0.5 % Normal [facility] Comment on above: Order Comment: Speci men Type: BLOOD SPECIMENOrdering Facility: [facility] Address: [address] [place] [address] Performed By: #### 5 7021-8 ####[facility]ORATORYCLIA [id number] [address] [place] Differential cell count method Nom (Bld) Auto Normal [facility] Comment on above: Order Comment: Speci men Type: BLOOD SPECIMENOrdering Facility: [facility] Address: [address] [place] [address] Performed By: #### 5 7021-8 ####[facility]ORATORYCLIA [id number] [address] [place] Eosinophils (Bld) [#/Vol] 0.31 10*3/uL Normal <0.46 [facility] Comment on above: Order Comment: Speci men Type: BLOOD SPECIMENOrdering Facility: [facility] Address: [address] [place] [address] Performed By: #### 5 7021-8 ####[facility]ATORYCLIA [id number] [address] [place] Eosinophils/100 WBC (Bld) 3.7 % Normal [facility] Comment on above: Order Comment: Speci men Type: BLOOD SPECIMENOrdering Facility: [facility] Address: [address] [place] [address] Performed By: #### 5 7021-8 ####[facility]ORATORYCLIA [id number] [address] Erythrocyte distribution width (RBC) [Ratio] 17.4 % High 11.5-15.0 [facility] Comment on above: Order Comment: Speci men Type: BLOOD SPECIMENOrdering Facility: [facility] Address: [address] [place] [address] Performed By: #### 5 7021-8 ####[facility]ORATORYCLIA [id number] [address] Hematocrit (Bld) [Volume fraction] 30.6 % Low 39.0-51.0 [facility] Comment on above: Order Comment: Speci men Type: BLOOD SPECIMENOrdering Facility: [facility] Address: [address] [place] [address] Performed By: #### 5 7021-8 ####[facility]ORATORYCLIA [id number] [address] Hemoglobin (Bld) [Mass/Vol] 9.6 g/dL Low 13.0-17.0 [facility] Comment on above: Order Comment: Speci men Type: BLOOD SPECIMENOrdering Facility: [facility] Address: [address] [place] [address] Performed By: #### 5 7021-8 ####[facility]ORATORYCLIA [id number] [address] IMMATURE GRAN % 0.2 % Normal [facility] Comment on above: Order Comment: Speci men Type: BLOOD SPECIMENOrdering Facility: [facility] Address: [address] [place] [address] Performed By: #### 5 7021-8 ####[facility]ORATORYCLIA [id number] [address] IMMATURE GRAN ABS <0.03 Normal <0.10 [facility] Comment on above: Order Comment: Speci men Type: BLOOD SPECIMENOrdering Facility: [facility] Address: [address] [place] [address] Performed By: #### 5 7021-8 ####[facility]ORATORYCLIA [id number] [address] [place] Lymphocytes (Bld) [#/Vol] 1.66 10*3/uL Normal 1.00-4.00 [facility] Comment on above: Order Comment: Speci men Type: BLOOD SPECIMENOrdering Facility: [facility] Address: [address] [place] [address] Performed By: #### 5 7021-8 ####[facility]ORATORYCLIA [id number] [address] Lymphocytes/100 WBC (Bld) 19.9 % Normal [facility] Comment on above: Order Comment: Speci men Type: BLOOD SPECIMENOrdering Facility: [facility] Address: [address] [place] [address] Performed By: #### 5 7021-8 ####[facility]ORATORYCLIA [id number] [address] STATES OF [facility] MCH (RBC) [Entitic mass] 28.9 pg Normal 26.0-34.0 [facility] Comment on above: Order Comment: Speci men Type: BLOOD SPECIMENOrdering Facility: [facility] Address: [address] [place] [address] Performed By: #### 5 7021-8 ####[facility]ORATORYCLIA [id number] [address] [place] MCHC (RBC) [Mass/Vol] 31.4 g/dL Normal 30.5-36.0 [facility] Comment on above: Order Comment: Speci men Type: BLOOD SPECIMENOrdering Facility: [facility] Address: [address] [place] [address] Performed By: #### 5 7021-8 ####[facility]ORATORYCLIA [id number] [address] [place] MCV (RBC) [Entitic vol] 92.2 fL Normal 80.0-100.0 [facility] Comment on above: Order Comment: Speci men Type: BLOOD SPECIMENOrdering Facility: [facility] Address: [address] [place] [address] Performed By: #### 5 7021-8 ####[facility]ORATORYCLIA [id number] [address] [place] Monocytes (Bld) [#/Vol] 0.52 10*3/uL Normal <0.87 [facility] Comment on above: Order Comment: Speci men Type: BLOOD SPECIMENOrdering Facility: [facility] Address: [address] [place] [address] Performed By: #### 5 7021-8 ####[facility]ATORYCLIA [id number] [address] [place] Monocytes/100 WBC (Bld) 6.2 % Normal [facility] Comment on above: Order Comment: Speci men Type: BLOOD SPECIMENOrdering Facility: [facility] Address: [address] [place] [address] Performed By: #### 5 7021-8 ####[facility]ATORYCLIA [id number] [address] [place] Neutrophils (Bld) [#/Vol] 5.78 10*3/uL Normal 1.45-7.50 [facility] Comment on above: Order Comment: Speci men Type: BLOOD SPECIMENOrdering Facility: [facility] Address: [address] [place] [address] Performed By: #### 5 7021-8 ####[facility]ATORYCLIA [id number] [address] [place] Neutrophils/100 WBC (Bld) 69.5 % Normal [facility] Comment on above: Order Comment: Speci men Type: BLOOD SPECIMENOrdering Facility: [facility] Address: [address] [place] [address] Performed By: #### 5 7021-8 ####[facility]ORATORYCLIA [id number] Nucleated RBC (Bld) [#/Vol] 10*3/uL Normal <0.01 [facility] Comment on above: Order Comment: Speci men Type: BLOOD SPECIMENOrdering Facility: [facility] Address: [address] [place] [address] Performed By: #### 5 7021-8 ####[facility]ORATORYCLIA [id number] [address] [place] Nucleated RBC/100 WBC (Bld) [Ratio] 0.0 /100 WBC Normal [facility] Comment on above: Order Comment: Speci men Type: BLOOD SPECIMENOrdering Facility: [facility] Address: [address] [place] [address] Performed By: #### 5 7021-8 ####[facility]ORATORYCLIA [id number] [address] [place] Platelet mean volume (Bld) [Entitic vol] 9.2 fL Normal 9.0-12.7 [facility] Comment on above: Order Comment: Speci men Type: BLOOD SPECIMENOrdering Facility: [facility] Address: [address] [place] [address] Performed By: #### 5 7021-8 ####[facility]ORATORYCLIA [id number] [address] [place] Platelets (Bld) [#/Vol] 379 10*3/uL Normal 150-400 [facility] Comment on above: Order Comment: Speci men Type: BLOOD SPECIMENOrdering Facility: [facility] Address: [address] [place] [address] Performed By: #### 5 7021-8 ####[facility]ORATORYCLIA [id number] [address] [place] RBC (Bld) [#/Vol] 3.32 10*6/uL Low 4.20-6.00 [facility] Comment on above: Order Comment: Speci men Type: BLOOD SPECIMENOrdering Facility: [facility] Address: [address] Performed By: #### 5 7021-8 ####[facility]ORATORYCLIA [id number] [place] [address] [place] WBC (Bld) [#/Vol] 8.33 10*3/uL Normal 3.70-11.00 [facility] Comment on above: Order Comment: Speci men Type: BLOOD SPECIMENOrdering Facility: [facility] Address: [address] [place] [address] Performed By: #### 5 7021-8 ####[facility]ORATORYCLIA [id number] [address] [place] CONSULT PROGon 08-17-2021 CONSULT PROG Normal [facility] NUTRITIONon 08-17-2021 NUTRITION Normal [facility] Basic metabolic 2000 panelon 08-16-2021 Anion gap [Moles/Vol] 14 mmol/L Normal 9-18 [facility] Comment on above: Order Comment: Speci men Type: BLOOD SPECIMENOrdering Facility: [facility] Address: [address] [place] [address] Performed By: #### 2 4321-2, 98944-2 ####[facility]ATORYCLIA [id number] [address] [place] Calcium [Mass/Vol] 8.8 mg/dL Normal 8.5-10.2 [facility] Comment on above: Order Comment: Speci men Type: BLOOD SPECIMENOrdering Facility: [facility] Address: [address] [place] [address] Performed By: #### 2 4321-2, 95344-6 ####[facility]ORATORYCLIA [id number] [place] [address] [place] Chloride [Moles/Vol] 97 mmol/L Normal 97-105 [facility] Comment on above: Order Comment: Speci men Type: BLOOD SPECIMENOrdering Facility: [facility] Address: [address] [place] [address] Performed By: #### 2 43205-08, ####[facility] LABORATORYCLIA [id number] [place] [id number] [place] CO2 [Moles/Vol] 27 mmol/L Normal 22-30 [facility] Comment on above: Order Comment: Speci men Type: BLOOD SPECIMENOrdering Facility: [facility] Address: [address] [place] [address] Performed By: #### 2 4320-06, ####[facility] HOSPITALCLIA [id number] [address] [place] Creatinine [Mass/Vol] 0.50 mg/dL Low 0.73-1.22 [facility] Comment on above: Order Comment: Speci men Type: BLOOD SPECIMENOrdering Facility: [facility] Address: [address] [place] [address] Performed By: #### 2 4320-06, ####[facility]NAIA [id number] [address] ESTIMATED GLOMERULAR FILTRATION RATE 110 mL/min/1.73m??? Normal >=60 [facility] Comment on above: Order Comment: Speci men Type: BLOOD SPECIMENOrdering Facility: ACCESS [facility] Address: [address] [place] [address] Result Comment: Luzmaria mated Glomerular Filtration Rate [...] actual GFR. Performed By: #### 2 4320-06, ####[facility]ATORYCLIA [id number] [place] [id number] [place] Glucose [Mass/Vol] 101 mg/dL High 74-99 [facility] Comment on above: Order Comment: Speci men Type: BLOOD SPECIMENOrdering Facility: [facility] Address: [address] [id number] Result Comment: The [place] [employer] (ADA) provides guidance for cutoff [...] Standards of Medical Care in Diabetes 2016, [place] [employer]. Diabetes Care. 2016.39(Suppl 1). Performed By: #### 2 4320-, ####[facility]ATORYCLIA [id number] [place] [address] [place] Potassium [Moles/Vol] 3.6 mmol/L Low 3.7-5.1 [facility] Comment on above: Order Comment: Speci men Type: BLOOD SPECIMENOrdering Facility: [facility] Address: [address] [address] Performed By: #### 2 4320-06, ####[facility]ATORYCLIA [id number] [place] [address] [place] Sodium [Moles/Vol] 138 mmol/L Normal 136-144 [facility] Comment on above: Order Comment: Speci men Type: BLOOD SPECIMENOrdering Facility: [facility] Address: [address] Performed By: #### 2 4320-06, ####[facility]ATORYCLIA [id number] [place] [address] [place] Urea nitrogen [Mass/Vol] 11 mg/dL Normal 9-24 [facility] Comment on above: Order Comment: Speci men Type: BLOOD SPECIMENOrdering Facility: [facility] Address: [address] Performed By: #### 2 4321-2, 81533-6 ####[facility]ATORYCLIA [id number] [address] CASE MANAGEMon 08-16-2021 CASE MANAGEM Normal [facility] CBC W Auto Differential pane l (Bld)on 08-16-2021 Basophils (Bld) [#/Vol] 0.03 10*3/uL Normal <0.11 [facility] Comment on above: Order Comment: Speci men Type: BLOOD SPECIMENOrdering Facility: [facility] Address: [address] [place] [address] Performed By: #### 5 7021-8 ####[facility]ATORYCLIA [id number] [address] Basophils/100 WBC (Bld) 0.4 % Normal [facility] Comment on above: Order Comment: Speci men Type: BLOOD SPECIMENOrdering Facility: [facility] Address: [address] [place] [address] Performed By: #### 5 7021-8 ####[facility]ATORYCLIA [id number] [address] Differential cell count method Nom (Bld) Auto Normal [facility] Comment on above: Order Comment: Speci men Type: BLOOD SPECIMENOrdering Facility: [facility] Address: [address] [place] [address] Performed By: #### 5 7021-8 ####[facility]ATORYCLIA [id number] [address] STATES OF [facility] Eosinophils (Bld) [#/Vol] 0.19 10*3/uL Normal <0.46 [facility] Comment on above: Order Comment: Speci men Type: BLOOD SPECIMENOrdering Facility: [facility] Address: [facility] [place] [address] Performed By: #### 5 7021-8 ####[facility]ATORYCLIA [id number] [address] Eosinophils/100 WBC (Bld) 2.5 % Normal [facility] Comment on above: Order Comment: Speci men Type: BLOOD SPECIMENOrdering Facility: [facility] Address: [address] [place] [address] Performed By: #### 5 7021-8 ####[facility]ATORYCLIA [id number] [address] Erythrocyte distribution width (RBC) [Ratio] 17.1 % High 11.5-15.0 [facility] Comment on above: Order Comment: Speci men Type: BLOOD SPECIMENOrdering Facility: [facility] Address: [address] [place] [address] Performed By: #### 5 7021-8 ####[facility]ATORYCLIA [id number] [address] Hematocrit (Bld) [Volume fraction] 29.2 % Low 39.0-51.0 [facility] Comment on above: Order Comment: Speci men Type: BLOOD SPECIMENOrdering Facility: [facility] Address: [address] [place] [address] Performed By: #### 5 7021-8 ####[facility]ATORYCLIA [id number] [address] Hemoglobin (Bld) [Mass/Vol] 9.0 g/dL Low 13.0-17.0 [facility] Comment on above: Order Comment: Speci men Type: BLOOD SPECIMENOrdering Facility: [facility] Address: [address] [place] [address] Performed By: #### 5 7021-8 ####[facility]ATORYCLIA [id number] [address] IMMATURE GRAN % 0.3 % Normal [facility] Comment on above: Order Comment: Speci men Type: BLOOD SPECIMENOrdering Facility: [facility] Address: [address] [place] [address] Performed By: #### 5 7021-8 ####[facility]ATORYCLIA [id number] [address] IMMATURE GRAN ABS <0.03 Normal <0.10 [facility] Comment on above: Order Comment: Speci men Type: BLOOD SPECIMENOrdering Facility: [facility] Address: [address] [place] [address] Performed By: #### 5 7021-8 ####[facility]ATORYCLIA [id number] [address] [place] Lymphocytes (Bld) [#/Vol] 1.41 10*3/uL Normal 1.00-4.00 [facility] Comment on above: Order Comment: Speci men Type: BLOOD SPECIMENOrdering Facility: [facility] Address: [address] [place] [address] Performed By: #### 5 7021-8 ####[facility]ATORYCLIA [id number] [address] Lymphocytes/100 WBC (Bld) 18.4 % Normal [facility] Comment on above: Order Comment: Speci men Type: BLOOD SPECIMENOrdering Facility: [facility] Address: [address] [place] [address] Performed By: #### 5 7021-8 ####[facility]ATORYCLIA [id number] [address] MCH (RBC) [Entitic mass] 28.0 pg Normal 26.0-34.0 [facility] Comment on above: Order Comment: Speci men Type: BLOOD SPECIMENOrdering Facility: [facility] Address: [address] [place] [address] Performed By: #### 5 7021-8 ####[facility]ATORYCLIA [id number] [address] MCHC (RBC) [Mass/Vol] 30.8 g/dL Normal 30.5-36.0 [facility] Comment on above: Order Comment: Speci men Type: BLOOD SPECIMENOrdering Facility: [facility] Address: [address] [address] Performed By: #### 5 7021-8 ####[facility]ATORYCLIA [id number] [address] [place] MCV (RBC) [Entitic vol] 91.0 fL Normal 80.0-100.0 [facility] Comment on above: Order Comment: Speci men Type: BLOOD SPECIMENOrdering Facility: [facility] Address: [address] [place] [address] Performed By: #### 5 7021-8 ####[facility]ATORYCLIA [id number] [address] Monocytes (Bld) [#/Vol] 0.47 10*3/uL Normal <0.87 [facility] Comment on above: Order Comment: Speci men Type: BLOOD SPECIMENOrdering Facility: [facility] Address: [address] [place] [address] Performed By: #### 5 7021-8 ####[facility]ATORYCLIA [id number] [address] Monocytes/100 WBC (Bld) 6.1 % Normal [facility] Comment on above: Order Comment: Speci men Type: BLOOD SPECIMENOrdering Facility: [facility] Address: [address] [place] [address] Performed By: #### 5 7021-8 ####[facility]ATORYCLIA [id number] [address] [place] Neutrophils (Bld) [#/Vol] 5.55 10*3/uL Normal 1.45-7.50 [facility] Comment on above: Order Comment: Speci men Type: BLOOD SPECIMENOrdering Facility: [facility] Address: [address] [place] [address] Performed By: #### 5 7021-8 ####[facility]ATORYCLIA [id number] [address] [place] Neutrophils/100 WBC (Bld) 72.3 % Normal [facility] Comment on above: Order Comment: Speci men Type: BLOOD SPECIMENOrdering Facility: [facility] Address: [address] Performed By: #### 5 7021-8 ####[facility]ATORYCLIA [id number] [address] STATES [facility] Nucleated RBC (Bld) [#/Vol] 10*3/uL Normal <0.01 [facility] Comment on above: Order Comment: Speci men Type: BLOOD SPECIMENOrdering Facility: [facility] Address: [address] [place] [address] Performed By: #### 5 7021-8 ####[facility]ATORYCLIA [id number] [address] [place] Nucleated RBC/100 WBC (Bld) [Ratio] 0.0 /100 WBC Normal [facility] Comment on above: Order Comment: Speci men Type: BLOOD SPECIMENOrdering Facility: [facility] Address: [address] [place] [address] Performed By: #### 5 7021-8 ####[facility]ATORYCLIA [id number] [address] [place] Platelet mean volume (Bld) [Entitic vol] 9.3 fL Normal 9.0-12.7 [facility] Comment on above: Order Comment: Speci men Type: BLOOD SPECIMENOrdering Facility: [facility] Address: [address] Performed By: #### 5 7021-8 ####[facility]ATORYCLIA [id number] [address] [place] Platelets (Bld) [#/Vol] 319 10*3/uL Normal 150-400 [facility] Comment on above: Order Comment: Speci men Type: BLOOD SPECIMENOrdering Facility: [facility] Address: [address] [place] [address] Performed By: #### 5 7021-8 ####[facility]ATORYCLIA [id number] [address] [place] RBC (Bld) [#/Vol] 3.21 10*6/uL Low 4.20-6.00 [facility] Comment on above: Order Comment: Speci men Type: BLOOD SPECIMENOrdering Facility: [facility] Address: [address] [place] [address] Performed By: #### 5 7021-8 ####[facility]ATORYCLIA [id number] [address] [place] WBC (Bld) [#/Vol] 7.67 10*3/uL Normal 3.70-11.00 [facility] Comment on above: Order Comment: Speci men Type: BLOOD SPECIMENOrdering Facility: [facility] Address: [address] [place] [address] Performed By: #### 5 7021-8 ####[facility]ATORYCLIA [id number] [address] [place] Basophils (Bld) [#/Vol] 0.04 10*3/uL Normal <0.11 [facility] Comment on above: Order Comment: Speci men Type: BLOOD SPECIMENOrdering Facility: [facility] Address: [address] [place] [address] Performed By: #### 5 7021-8 ####[facility]ATORYCLIA [id number] [address] [place] Basophils/100 WBC (Bld) 0.5 % Normal [facility] Comment on above: Order Comment: Speci men Type: BLOOD SPECIMENOrdering Facility: [facility] Address: [address] [place] [address] Performed By: #### 5 7021-8 ####[facility]ATORYCLIA [id number] [address] Differential cell count method Nom (Bld) Auto Normal [facility] Comment on above: Order Comment: Speci men Type: BLOOD SPECIMENOrdering Facility: [facility] Address: [address] [place], [place] [id number] Performed By: #### 5 7021-8 ####[facility]ATORYCLIA [id number] [address] [place] Eosinophils (Bld) [#/Vol] 0.19 10*3/uL Normal <0.46 [facility] Comment on above: Order Comment: Speci men Type: BLOOD SPECIMENOrdering Facility: [facility] Address: [address] [place] [address] Performed By: #### 5 7021-8 ####[facility]ATORYCLIA [id number] [address] Eosinophils/100 WBC (Bld) 2.5 % Normal [facility] Comment on above: Order Comment: Speci men Type: BLOOD SPECIMENOrdering Facility: [facility] Address: [address] [place] [address] Performed By: #### 5 7021-8 ####[facility]ATORYCLIA [id number] [address] STATES [facility] Erythrocyte distribution width (RBC) [Ratio] 17.2 % High 11.5-15.0 [facility] Comment on above: Order Comment: Speci men Type: BLOOD SPECIMENOrdering Facility: [facility] Address: [address] [place] [address] Performed By: #### 5 7021-8 ####[facility]ATORYCLIA [id number] [address] [place] Hematocrit (Bld) [Volume fraction] 29.5 % Low 39.0-51.0 [facility] Comment on above: Order Comment: Speci men Type: BLOOD SPECIMENOrdering Facility: [facility] Address: [address] [place] [address] Performed By: #### 5 7021-8 ####[facility]ATORYCLIA [id number] [address] [place] Hemoglobin (Bld) [Mass/Vol] 9.2 g/dL Low 13.0-17.0 [facility] Comment on above: Order Comment: Speci men Type: BLOOD SPECIMENOrdering Facility: [facility] Address: [address] [place] [address] Performed By: #### 5 7021-8 ####[facility]ATORYCLIA [id number] [address] IMMATURE GRAN % 0.4 % Normal [facility] Comment on above: Order Comment: Speci men Type: BLOOD SPECIMENOrdering Facility: [facility] Address: [address] [place] [address] Performed By: #### 5 7021-8 ####[facility]ATORYCLIA [id number] [address] IMMATURE GRAN ABS 0.03 k/uL Normal <0.10 [facility] Comment on above: Order Comment: Speci men Type: BLOOD SPECIMENOrdering Facility: [facility] Address: [address] [place] [address] Performed By: #### 5 7021-8 ####[facility]ATORYCLIA [id number] [address] Lymphocytes (Bld) [#/Vol] 1.50 10*3/uL Normal 1.00-4.00 [facility] Comment on above: Order Comment: Speci men Type: BLOOD SPECIMENOrdering Facility: [facility] Address: [address] [place] [address] Performed By: #### 5 7021-8 ####[facility]ATORYCLIA [id number] [address] Lymphocytes/100 WBC (Bld) 19.7 % Normal [facility] Comment on above: Order Comment: Speci men Type: BLOOD SPECIMENOrdering Facility: [facility] Address: [address] [place] [address] Performed By: #### 5 7021-8 ####[facility]ATORYCLIA [id number] [address] [place] MCH (RBC) [Entitic mass] 28.3 pg Normal 26.0-34.0 [facility] Comment on above: Order Comment: Speci men Type: BLOOD SPECIMENOrdering Facility: [facility] Address: [address] [place] [address] Performed By: #### 5 7021-8 ####[facility]ATORYCLIA [id number] [place] [address] [place] MCHC (RBC) [Mass/Vol] 31.2 g/dL Normal 30.5-36.0 [facility] Comment on above: Order Comment: Speci men Type: BLOOD SPECIMENOrdering Facility: [facility] Address: [address] [place] [address] Performed By: #### 5 7021-8 ####[facility]ATORYCLIA [id number] [address] [place] MCV (RBC) [Entitic vol] 90.8 fL Normal 80.0-100.0 [facility] Comment on above: Order Comment: Speci men Type: BLOOD SPECIMENOrdering Facility: [facility] Address: [address] [place] [address] Performed By: #### 5 7021-8 ####[facility]ATORYCLIA [id number] [address] STATES OF [facility] Monocytes (Bld) [#/Vol] 0.49 10*3/uL Normal <0.87 [facility] Comment on above: Order Comment: Speci men Type: BLOOD SPECIMENOrdering Facility: [facility] Address: [address] [place] [address] Performed By: #### 5 7021-8 ####[facility]ATORYCLIA [id number] [address] Monocytes/100 WBC (Bld) 6.4 % Normal [facility] Comment on above: Order Comment: Speci men Type: BLOOD SPECIMENOrdering Facility: [facility] Address: [address] [place] [address] Performed By: #### 5 7021-8 ####[facility]ORATORYCLIA [id number] [address] [place] Neutrophils (Bld) [#/Vol] 5.38 10*3/uL Normal 1.45-7.50 [facility] Comment on above: Order Comment: Speci men Type: BLOOD SPECIMENOrdering Facility: [facility] Address: [address] [place] [address] Performed By: #### 5 7021-8 ####[facility]ATORYCLIA [id number] [address] STATES [facility] Neutrophils/100 WBC (Bld) 70.5 % Normal [facility] Comment on above: Order Comment: Speci men Type: BLOOD SPECIMENOrdering Facility: [facility] Address: [address] [place] [address] Performed By: #### 5 7021-8 ####[facility]ATORYCLIA [id number] [address] Nucleated RBC (Bld) [#/Vol] 10*3/uL Normal <0.01 [facility] Comment on above: Order Comment: Speci men Type: BLOOD SPECIMENOrdering Facility: [facility] Address: [address] [place] [address] Performed By: #### 5 7021-8 ####[facility]ORYCLIA [id number] [address] Nucleated RBC/100 WBC (Bld) [Ratio] 0.0 /100 WBC Normal [facility] Comment on above: Order Comment: Speci men Type: BLOOD SPECIMENOrdering Facility: [facility] Address: [address] [place] [address] Performed By: #### 5 7021-8 ####[facility]ATORYCLIA [id number] [address] Platelet mean volume (Bld) [Entitic vol] 9.0 fL Normal 9.0-12.7 [facility] Comment on above: Order Comment: Speci men Type: BLOOD SPECIMENOrdering Facility: [facility] Address: [address] [place] [address] Performed By: #### 5 7021-8 ####[facility]ATORYCLIA [id number] [address] OF [facility] Platelets (Bld) [#/Vol] 316 10*3/uL Normal 150-400 [facility] Comment on above: Order Comment: Speci men Type: BLOOD SPECIMENOrdering Facility: [facility] Address: [address] [place] [address] Performed By: #### 5 7021-8 ####[facility]ATORYCLIA [id number] [address] [place] RBC (Bld) [#/Vol] 3.25 10*6/uL Low 4.20-6.00 [facility] Comment on above: Order Comment: Speci men Type: BLOOD SPECIMENOrdering Facility: [facility] Address: [address] [place] [address] Performed By: #### 5 7021-8 ####[facility]ATORYCLIA [id number] [address] [place] WBC (Bld) [#/Vol] 7.63 10*3/uL Normal 3.70-11.00 [facility] Comment on above: Order Comment: Speci men Type: BLOOD SPECIMENOrdering Facility: [facility] Address: [address] [place] [address] Performed By: #### 5 7021-8 ####[facility]ATORYCLIA [id number] [address] [place] Basophils (Bld) [#/Vol] Normal <0.11 [facility] Comment on above: Order Comment: Speci men Type: BLOOD SPECIMENOrdering Facility: [facility] Address: [address] [place] [address] Result Comment: Carolina Owens RN informed lab after results autoverified that she rd on the wrong patient. Lab to credit. Nurse to redraw on correct patient.Corrected result: Previously reported as 0.04 k/uL on 08/16/2021 at 4:44 AM EDT. Performed By: #### 5 7021-8 ####[facility]ATORYCLIA [id number] [address] STATES [facility] Basophils/100 WBC (Bld) Normal [facility] Comment on above: Order Comment: Speci men Type: BLOOD SPECIMENOrdering Facility: [facility] Address: [address] [place] [address] Result Comment: Tati ected result: Previously reported as 0.4 % on 08/16/2021 at 4:44 AM EDT. Performed By: #### 5 7021-8 ####[facility]ATORYCLIA [id number] [address] [place] CBC W Differential panel, method unspecified (Bld) Normal [facility] Comment on above: Order Comment: Speci men Type: BLOOD SPECIMENOrdering Facility: [facility] Address: [address] [place] [address] Result Comment: Carolina Owens RN informed lab after results autoverified that she rd on the wrong patient. Lab to credit. Nurse to redraw on correct patient. Performed By: #### 5 7021-8 ####[facility]ATORYCLIA [id number] [address] [place] Differential cell count method Nom (Bld) Normal [facility] Comment on above: Order Comment: Speci [facility] Type: BLOOD SPECIMENOrdering Facility: [facility] Address: [address] [place] [address] Result Comment: Carolina Owens RN informed lab after results autoverified that she rd on the wrong patient. Lab to credit. Nurse to redraw on correct patient.Corrected result: Previously reported as Auto on 08/16/2021 at 4:44 AM EDT. Performed By: #### 5 7021-8 ####[facility]ORATORYCLIA [id number] [place] [address] [place] Eosinophils (Bld) [#/Vol] Normal <0.46 [facility] Comment on above: Order Comment: Speci francia Type: BLOOD SPECIMENOrdering Facility: [facility] Address: [address] [place] [address] Result Comment: Carolina Owens RN informed lab after results autoverified that she rd on the wrong patient. Lab to credit. Nurse to redraw on correct patient.Corrected result: Previously reported as 0.07 k/uL on 08/16/2021 at 4:44 AM EDT. Performed By: #### 5 7021-8 ####[facility]ORATORYCLIA [id number] [place] [address] [place] [facility] Eosinophils/100 WBC (Bld) Normal [facility] Comment on above: Order Comment: Shira francia Type: BLOOD SPECIMENOrdering Facility: [facility] Address: [address] [place] [address] Result Comment: Carolina Owens RN informed lab after results autoverified that she rd on the wrong patient. Lab to credit. Nurse to redraw on correct patient.Corrected result: Previously reported as 0.7 % on 08/16/2021 at 4:44 AM EDT. Performed By: #### 5 7021-8 ####[facility]ATORYCLIA [id number] [address] [place] [facility] Erythrocyte distribution width (RBC) [Ratio] Normal 11.5-15.0 [facility] Comment on above: Order Comment: Speci francia Type: BLOOD SPECIMENOrdering Facility: [facility] Address: [address] [place] [address] Result Comment: Carolina Owens RN informed lab after results autoverified that she rd on the wrong patient. Lab to credit. Nurse to redraw on correct patient.Corrected result: Previously reported as 14.2 % on 08/16/2021 at 4:44 AM EDT. Performed By: #### 5 7021-8 ####[facility]ORATORYCLIA [id number] [address] [place] Hematocrit (Bld) [Volume fraction] Normal 39.0-51.0 [facility] Comment on above: Order Comment: Speci men Type: BLOOD SPECIMENOrdering Facility: [facility] Address: [address] [place] [address] Result Comment: Carolina Owens RN informed lab after results autoverified that she rd on the wrong patient. Lab to credit. Nurse to redraw on correct patient.Corrected result: Previously reported as 34.3 % on 08/16/2021 at 4:44 AM EDT. Performed By: #### 5 7021-8 ####[facility]ATORYCLIA [id number] [address] STATES OF [facility] Hemoglobin (Bld) [Mass/Vol] Normal 13.0-17.0 [facility] Comment on above: Order Comment: Speci men Type: BLOOD SPECIMENOrdering Facility: [facility] Address: [address] [place] [address] Result Comment: Carolina Owens RN informed lab after results autoverified that she rd on the wrong patient. Lab to credit. Nurse to redraw on correct patient.Corrected result: Previously reported as 11.2 g/dL on 08/16/2021 at 4:44 AM EDT. Performed By: #### 5 7021-8 ####[facility] LABORATORYCLIA [id number] [address] [address] STATES OF [facility] IMMATURE GRAN % Normal [facility] Comment on above: Order Comment: Speci men Type: BLOOD SPECIMENOrdering Facility: [facility] Address: [address] [place] [address] Result Comment: Carolina Owens RN informed lab after results autoverified that she rd on the wrong patient. Lab to credit. Nurse to redraw on correct patient.Corrected result: Previously reported as 0.8 % on 08/16/2021 at 4:44 AM EDT. Performed By: #### 5 7021-8 ####[facility] LABORATORYCLIA [id number] [address] OF [facility] IMMATURE GRAN ABS Normal <0.10 [facility] Comment on above: Order Comment: Speci men Type: BLOOD SPECIMENOrdering Facility: [facility] Address: [address] [place] [address] Result Comment: Tati ected result: Previously reported as 0.08 k/uL on 08/16/2021 at 4:44 AM EDT. Performed By: #### 5 7021-8 ####[facility] LABORATORYCLIA [id number] [address] STATES OF [facility] Lymphocytes (Bld) [#/Vol] Normal 1.00-4.00 [facility] Comment on above: Order Comment: Speci men Type: BLOOD SPECIMENOrdering Facility: [facility] Address: [address] [place] [address] Result Comment: Carolina Owens RN informed lab after results autoverified that she rd on the wrong patient. Lab to credit. Nurse to redraw on correct patient.Corrected result: Previously reported as 1.17 k/uL on 08/16/2021 at 4:44 AM EDT. Performed By: #### 5 7021-8 ####[facility]ORATORYCLIA [id number] [address] STATES OF [facility] Lymphocytes/100 WBC (Bld) Normal [facility] Comment on above: Order Comment: Speci men Type: BLOOD SPECIMENOrdering Facility: [facility] Address: [address] [place] [address] Result Comment: Carolina Owens RN informed lab after results autoverified that she rd on the wrong patient. Lab to credit. Nurse to redraw on correct patient.Corrected result: Previously reported as 12.0 % on 08/16/2021 at 4:44 AM EDT. Performed By: #### 5 7021-8 ####[facility]ORATORYCLIA [id number] [address] [place] MCHC (RBC) [Mass/Vol] Normal 30.5-36.0 [facility] Comment on above: Order Comment: Speci men Type: BLOOD SPECIMENOrdering Facility: [facility] Address: [address] [place] [address] Result Comment: Carolina Owens RN informed lab after results autoverified that she rd on the wrong patient. Lab to credit. Nurse to redraw on correct patient.Corrected result: Previously reported as 32.7 g/dL on 08/16/2021 at 4:44 AM EDT. Performed By: #### 5 7021-8 ####[facility] LABORATORYCLIA [id number] [address] [place] MCV (RBC) [Entitic vol] Normal 80.0-100.0 [facility] Comment on above: Order Comment: Speci men Type: BLOOD SPECIMENOrdering Facility: [facility] Address: [address] [place] [address] Result Comment: Carolina Owens RN informed lab after results autoverified that she rd on the wrong patient. Lab to credit. Nurse to redraw on correct patient.Corrected result: Previously reported as 94.2 fL on 08/16/2021 at 4:44 AM EDT. Performed By: #### 5 7021-8 ####[facility]ORATORYCLIA [id number] [address] [place] Monocytes (Bld) [#/Vol] Normal <0.87 [facility] Comment on above: Order Comment: Speci men Type: BLOOD SPECIMENOrdering Facility: [facility] Address: [address] [place] [address] Result Comment: Carolina Owens RN informed lab after results autoverified that she rd on the wrong patient. Lab to credit. Nurse to redraw on correct patient.Corrected result: Previously reported as 0.99 k/uL on 08/16/2021 at 4:44 AM EDT. Performed By: #### 5 7021-8 ####[facility]ORATORYCLIA [id number] [address] [place] Monocytes/100 WBC (Bld) Normal [facility] Comment on above: Order Comment: Speci men Type: BLOOD SPECIMENOrdering Facility: [facility] Address: [address] [place] [address] Result Comment: Carolina Owens RN informed lab after results autoverified that she rd on the wrong patient. Lab to credit. Nurse to redraw on correct patient.Corrected result: Previously reported as 10.2 % on 08/16/2021 at 4:44 AM EDT. Performed By: #### 5 7021-8 ####[facility]ORATORYCLIA [id number] [place] [address] [place] Neutrophils (Bld) [#/Vol] Normal 1.45-7.50 [facility] Comment on above: Order Comment: Speci men Type: BLOOD SPECIMENOrdering Facility: [facility] Address: [address] [place] [address] Result Comment: Carolina Owens RN informed lab after results autoverified that she rd on the wrong patient. Lab to credit. Nurse to redraw on correct patient.Corrected result: Previously reported as 7.40 k/uL on 08/16/2021 at 4:44 AM EDT. Performed By: #### 5 7021-8 ####[facility]ORATORYCLIA [id number] [address] [place] Neutrophils/100 WBC (Bld) Normal [facility] Comment on above: Order Comment: Speci men Type: BLOOD SPECIMENOrdering Facility: [facility] Address: [address] [place] [address] Result Comment: Carolina Owens RN informed lab after results autoverified that she rd on the wrong patient. Lab to credit. Nurse to redraw on correct patient.Corrected result: Previously reported as 75.9 % on 08/16/2021 at 4:44 AM EDT. Performed By: #### 5 7021-8 ####[facility]ORATORYCLIA [id number] [place] [address] [place] Platelet mean volume (Bld) [Entitic vol] Normal 9.0-12.7 [facility] Comment on above: Order Comment: Speci men Type: BLOOD SPECIMENOrdering Facility: [facility] Address: [address] [place] [address] Result Comment: Carolina Owens RN informed lab after results autoverified that she rd on the wrong patient. Lab to credit. Nurse to redraw on correct patient.Corrected result: Previously reported as 9.1 fL on 08/16/2021 at 4:44 AM EDT. Performed By: #### 5 7021-8 ####[facility]ORATORYCLIA [id number] [place] [address] [place] Platelets (Bld) [#/Vol] Normal 150-400 [facility] Comment on above: Order Comment: Speci men Type: BLOOD SPECIMENOrdering Facility: [facility] Address: [address] [place] [address] Result Comment: Carolina Owens RN informed lab after results autoverified that she rd on the wrong patient. Lab to credit. Nurse to redraw on correct patient.Corrected result: Previously reported as 338 k/uL on 08/16/2021 at 4:44 AM EDT. Performed By: #### 5 7021-8 ####[facility]ORATORYCLIA [id number] [address] [place] RBC (Bld) [#/Vol] Normal 4.20-6.00 [facility] Comment on above: Order Comment: Speci men Type: BLOOD SPECIMENOrdering Facility: [facility] Address: [address] [place] [address] Result Comment: Carolina Owens RN informed lab after results autoverified that she rd on the wrong patient. Lab to credit. Nurse to redraw on correct patient.Corrected result: Previously reported as 3.64 m/uL on 08/16/2021 at 4:44 AM EDT. Performed By: #### 5 7021-8 ####[facility]ORATORYCLIA [id number] [address] [place] WBC (Bld) [#/Vol] Normal 3.70-11.00 [facility] Comment on above: Order Comment: Speci men Type: BLOOD SPECIMENOrdering Facility: [facility] Address: [address] [place] [address] Result Comment: Carolina Owens RN informed lab after results autoverified that she rd on the wrong patient. Lab to credit. Nurse to redraw on correct patient.Corrected result: Previously reported as 9.75 k/uL on 08/16/2021 at 4:44 AM EDT. Performed By: #### 5 7021-8 ####[facility]ORATORYCLIA [id number] [address] CONSULT PROGon 08-16-2021 CONSULT PROG Normal [facility] Magnesium SerPl-mCncon 08-16 Magnesium [Mass/Vol] 1.8 mg/dL Normal 1.7-2.3 [facility] Comment on above: Order Comment: Speci men Type: BLOOD SPECIMENOrdering Facility: [facility] Address: [address] [place] [address] Performed By: #### 2 4321-2, 09581-1 ####[facility]ORATORYCLIA [id number] [address] NURSING PROGon 08-16-2021 NURSING PROG Normal [facility] Basic metabolic 2000 panelon 08-15-2021 Anion gap [Moles/Vol] 13 mmol/L Normal 9-18 [facility] Comment on above: Order Comment: Speci men Type: BLOOD SPECIMENOrdering Facility: [facility] Address: [address] [place] [address] Performed By: #### 2 4321-2 ####[facility]ORATORYCLIA [id number] [address] Calcium [Mass/Vol] 9.0 mg/dL Normal 8.5-10.2 [facility] Comment on above: Order Comment: Speci men Type: BLOOD SPECIMENOrdering Facility: [facility] Address: [address] [place] [address] Performed By: #### 2 4321-2 ####[facility]ORATORYCLIA [id number] [address] Chloride [Moles/Vol] 95 mmol/L Low 97-105 [facility] Comment on above: Order Comment: Speci men Type: BLOOD SPECIMENOrdering Facility: [facility] Address: [address] [place] [address] Performed By: #### 2 4321-2 ####[facility]ORATORYCLIA [id number] [address] [place] CO2 [Moles/Vol] 28 mmol/L Normal 22-30 [facility] Comment on above: Order Comment: Speci men Type: BLOOD SPECIMENOrdering Facility: [facility] Address: [address] [place] [address] Performed By: #### 2 4321-2 ####[facility]PITALCLIA [id number] [address] Creatinine [Mass/Vol] 0.50 mg/dL Low 0.73-1.22 [facility] Comment on above: Order Comment: Speci men Type: BLOOD SPECIMENOrdering Facility: [facility] Address: [address] [place] [address] Performed By: #### 2 4321-2 ####[facility]ORATORYCLIA [id number] [address] ESTIMATED GLOMERULAR FILTRATION RATE 110 mL/min/1.73m??? Normal >=60 [facility] Comment on above: Order Comment: Speci men Type: BLOOD SPECIMENOrdering Facility: [facility] Address: [address] [place] [address] Result Comment: Luzmaria mated Glomerular Filtration Rate [...] actual GFR. Performed By: #### 2 4321-2 ####[facility]ORATORYCLIA [id number] [address] Glucose [Mass/Vol] 106 mg/dL High 74-99 [facility] Comment on above: Order Comment: Shira francia Type: BLOOD SPECIMENOrdering Facility: [facility] Address: [address] [place] [address] Result Comment: The [place] [employer] (ADA) provides guidance for cutoff [...] Standards of Medical Care in Diabetes 2016, [place] [employer]. Diabetes Care. 2016.39(Suppl 1). Performed By: #### 2 4321-2 ####[facility]ORATORYCLIA [id number] [place] [address] [place] Potassium [Moles/Vol] 3.3 mmol/L Low 3.7-5.1 [facility] Comment on above: Order Comment: Shira francia Type: BLOOD SPECIMENOrdering Facility: [facility] Address: [address] [place] [address] Performed By: #### 2 4321-2 ####[facility]ORATORYCLIA [id number] [place] [address] [place] Sodium [Moles/Vol] 136 mmol/L Normal 136-144 [facility] Comment on above: Order Comment: Shira francia Type: BLOOD SPECIMENOrdering Facility: [facility] Address: [address] [place] [address] Performed By: #### 2 4321-2 ####[facility]ORATORYCLIA [id number] [place] [address] [place] Urea nitrogen [Mass/Vol] 11 mg/dL Normal 9-24 [facility] Comment on above: Order Comment: Johni men Type: BLOOD SPECIMENOrdering Facility: [facility] Address: [address] [address] Performed By: #### 2 4321-2 ####[facility]ORATORYCLIA [id number] [address] [place] CASE MANAGEMon 08-15-2021 CASE MANAGEM Normal [facility] CBC W Auto Differential pane l (Bld)on 08-15-2021 Basophils (Bld) [#/Vol] 0.03 10*3/uL Normal <0.11 [facility] Comment on above: Order Comment: Speci men Type: BLOOD SPECIMENOrdering Facility: [facility] Address: [address] [place] [address] Performed By: #### 5 7021-8 ####[facility]ORATORYCLIA [id number] [address] STATES [facility] Basophils/100 WBC (Bld) 0.4 % Normal [facility] Comment on above: Order Comment: Speci men Type: BLOOD SPECIMENOrdering Facility: [facility] Address: [address] [place] [address] Performed By: #### 5 7021-8 ####[facility]ORATORYCLIA [id number] [address] [place] Differential cell count method Nom (Bld) Auto Normal [facility] Comment on above: Order Comment: Speci men Type: BLOOD SPECIMENOrdering Facility: [facility] Address: [facility] [place] [address] Performed By: #### 5 7021-8 ####[facility]ORATORYCLIA [id number] [address] [place] Eosinophils (Bld) [#/Vol] 0.20 10*3/uL Normal <0.46 [facility] Comment on above: Order Comment: Speci men Type: BLOOD SPECIMENOrdering Facility: [facility] Address: [address] [address] Performed By: #### 5 7021-8 ####[facility]ORATORYCLIA [id number] [address] Eosinophils/100 WBC (Bld) 2.5 % Normal [facility] Comment on above: Order Comment: Speci men Type: BLOOD SPECIMENOrdering Facility: [facility] Address: [address] [place] [address] Performed By: #### 5 7021-8 ####[facility]ORATORYCLIA [id number] [address] Erythrocyte distribution width (RBC) [Ratio] 16.7 % High 11.5-15.0 [facility] Comment on above: Order Comment: Speci men Type: BLOOD SPECIMENOrdering Facility: [facility] Address: [address] [place] [address] Performed By: #### 5 7021-8 ####[facility]ORATORYCLIA [id number] [address] Hematocrit (Bld) [Volume fraction] 30.3 % Low 39.0-51.0 [facility] Comment on above: Order Comment: Speci men Type: BLOOD SPECIMENOrdering Facility: [facility] Address: [address] [place] [address] Performed By: #### 5 7021-8 ####[facility]ORATORYCLIA [id number] [address] [place] Hemoglobin (Bld) [Mass/Vol] 9.4 g/dL Low 13.0-17.0 [facility] Comment on above: Order Comment: Speci men Type: BLOOD SPECIMENOrdering Facility: [facility] Address: [address] [place] [address] Performed By: #### 5 7021-8 ####[facility]ORATORYCLIA [id number] [address] IMMATURE GRAN % 0.4 % Normal [facility] Comment on above: Order Comment: Speci men Type: BLOOD SPECIMENOrdering Facility: [facility] Address: [address] [place] [address] Performed By: #### 5 7021-8 ####[facility]ORATORYCLIA [id number] [address] IMMATURE GRAN ABS 0.03 k/uL Normal <0.10 [facility] Comment on above: Order Comment: Speci men Type: BLOOD SPECIMENOrdering Facility: [facility] Address: [address] [place] [address] Performed By: #### 5 7021-8 ####[facility]ORATORYCLIA [id number] [address] Lymphocytes (Bld) [#/Vol] 1.50 10*3/uL Normal 1.00-4.00 [facility] Comment on above: Order Comment: Speci men Type: BLOOD SPECIMENOrdering Facility: [facility] Address: [address] [place] [address] Performed By: #### 5 7021-8 ####[facility]ORATORYCLIA [id number] [address] Lymphocytes/100 WBC (Bld) 18.5 % Normal [facility] Comment on above: Order Comment: Speci men Type: BLOOD SPECIMENOrdering Facility: [facility] Address: [address] [place] [address] Performed By: #### 5 7021-8 ####[facility]ORATORYCLIA [id number] [address] MCH (RBC) [Entitic mass] 29.0 pg Normal 26.0-34.0 [facility] Comment on above: Order Comment: Speci men Type: BLOOD SPECIMENOrdering Facility: [facility] Address: [address] [place] [address] Performed By: #### 5 7021-8 ####[facility]ORATORYCLIA [id number] [address] MCHC (RBC) [Mass/Vol] 31.0 g/dL Normal 30.5-36.0 [facility] Comment on above: Order Comment: Speci men Type: BLOOD SPECIMENOrdering Facility: [facility] Address: [address] [address] Performed By: #### 5 7021-8 ####[facility]ORATORYCLIA [id number] [address] [place] MCV (RBC) [Entitic vol] 93.5 fL Normal 80.0-100.0 [facility] Comment on above: Order Comment: Speci men Type: BLOOD SPECIMENOrdering Facility: [facility] Address: [address] [place] [address] Performed By: #### 5 7021-8 ####[facility]ORATORYCLIA [id number] [address] [place] Monocytes (Bld) [#/Vol] 0.47 10*3/uL Normal <0.87 [facility] Comment on above: Order Comment: Speci men Type: BLOOD SPECIMENOrdering Facility: [facility] Address: [address] [place] [address] Performed By: #### 5 7021-8 ####[facility]ORATORYCLIA [id number] [address] [place] Monocytes/100 WBC (Bld) 5.8 % Normal [facility] Comment on above: Order Comment: Speci men Type: BLOOD SPECIMENOrdering Facility: [facility] Address: [address] [place] [address] Performed By: #### 5 7021-8 ####[facility]ORATORYCLIA [id number] [address] [place] Neutrophils (Bld) [#/Vol] 5.87 10*3/uL Normal 1.45-7.50 [facility] Comment on above: Order Comment: Speci men Type: BLOOD SPECIMENOrdering Facility: [facility] Address: [address] [place] [address] Performed By: #### 5 7021-8 ####[facility]ORATORYCLIA [id number] [address] [place] Neutrophils/100 WBC (Bld) 72.4 % Normal [facility] Comment on above: Order Comment: Speci men Type: BLOOD SPECIMENOrdering Facility: [facility] Address: [address] [address] Performed By: #### 5 7021-8 ####[facility]ORATORYCLIA [id number] [address] [place] Nucleated RBC (Bld) [#/Vol] 10*3/uL Normal <0.01 [facility] Comment on above: Order Comment: Speci men Type: BLOOD SPECIMENOrdering Facility: [facility] Address: [address] [place] [address] Performed By: #### 5 7021-8 ####[facility]ORATORYCLIA [id number] [address] Nucleated RBC/100 WBC (Bld) [Ratio] 0.0 /100 WBC Normal [facility] Comment on above: Order Comment: Speci men Type: BLOOD SPECIMENOrdering Facility: [facility] Address: [address] [place] [address] Performed By: #### 5 7021-8 ####[facility]ORATORYCLIA [id number] [address] Platelet mean volume (Bld) [Entitic vol] 9.4 fL Normal 9.0-12.7 [facility] Comment on above: Order Comment: Speci men Type: BLOOD SPECIMENOrdering Facility: [facility] Address: [address] Performed By: #### 5 7021-8 ####[facility]ORATORYCLIA [id number] [address] [place] Platelets (Bld) [#/Vol] 290 10*3/uL Normal 150-400 [facility] Comment on above: Order Comment: Speci men Type: BLOOD SPECIMENOrdering Facility: [facility] Address: [address] [place], [place] [address] Performed By: #### 5 7021-8 ####[facility]ORATORYCLIA [id number] [place] [address] [place] RBC (Bld) [#/Vol] 3.24 10*6/uL Low 4.20-6.00 [facility] Comment on above: Order Comment: Speci men Type: BLOOD SPECIMENOrdering Facility: [facility] Address: [address] [place] [address] Performed By: #### 5 7021-8 ####[facility]ORATORYCLIA [id number] [address] STATES OF [facility] WBC (Bld) [#/Vol] 8.10 10*3/uL Normal 3.70-11.00 [facility] Comment on above: Order Comment: Speci men Type: BLOOD SPECIMENOrdering Facility: [facility] Address: [address] [place] [address] Performed By: #### 5 7021-8 ####[facility]ORATORYCLIA [id number] [address] [place] THERAPY NTon 08-15-2021 THERAPY NT Normal [facility] THERAPY NT Normal [facility] THERAPY NT Normal [facility] Basic metabolic 2000 panelon 08-14-2021 Anion gap [Moles/Vol] 10 mmol/L Normal 9-18 [facility] Comment on above: Order Comment: Speci men Type: BLOOD SPECIMENOrdering Facility: [facility] Address: [address] [place] [address] Performed By: #### 2 4321-2 ####[facility]ORATORYCLIA [id number] [address] [place] Calcium [Mass/Vol] 8.8 mg/dL Normal 8.5-10.2 [facility] Comment on above: Order Comment: Speci men Type: BLOOD SPECIMENOrdering Facility: [facility] Address: [address] [place] [address] Performed By: #### 2 4321-2 ####[facility]ORATORYCLIA [id number] [address] OF [facility] Chloride [Moles/Vol] 92 mmol/L Low 97-105 [facility] Comment on above: Order Comment: Speci men Type: BLOOD SPECIMENOrdering Facility: [facility] Address: [address] [place] [address] Performed By: #### 2 4321-2 ####[facility]ORATORYCLIA [id number] [address] [place] CO2 [Moles/Vol] 29 mmol/L Normal 22-30 [facility] Comment on above: Order Comment: Speci men Type: BLOOD SPECIMENOrdering Facility: [facility] Address: [address] [place] [address] Performed By: #### 2 4321-2 ####[facility] [id number] [address] Creatinine [Mass/Vol] 0.49 mg/dL Low 0.73-1.22 [facility] Comment on above: Order Comment: Speci men Type: BLOOD SPECIMENOrdering Facility: [facility] Address: [address] [place] [address] Performed By: #### 2 4321-2 ####[facility]ORATORYCLIA [id number] [address] ESTIMATED GLOMERULAR FILTRATION RATE 111 mL/min/1.73m??? Normal >=60 [facility] Comment on above: Order Comment: Speci men Type: BLOOD SPECIMENOrdering Facility: [facility] Address: [address] [place] [address] Result Comment: Luzmaria mated Glomerular Filtration Rate [...] actual GFR. Performed By: #### 2 4321-2 ####[facility]ORATORYCLIA [id number] [place] [address] [place] Glucose [Mass/Vol] 104 mg/dL High 74-99 [facility] Comment on above: Order Comment: Shira feldman Type: BLOOD SPECIMENOrdering Facility: [facility] Address: [address] [place] [address] Result Comment: The [place] [employer] (ADA) provides guidance for cutoff [...] Standards of Medical Care in Diabetes 2016, [place] [employer]. Diabetes Care. 2016.39(Suppl 1). Performed By: #### 2 4321-2 ####[facility]ORATORYCLIA [id number] [place] [address] [place] Potassium [Moles/Vol] 3.1 mmol/L Low 3.7-5.1 [facility] Comment on above: Order Comment: Shira feldman Type: BLOOD SPECIMENOrdering Facility: [facility] Address: [address] [place] [address] Performed By: #### 2 4321-2 ####[facility] LABORATORYCLIA [id number] [place] [address] [place] Sodium [Moles/Vol] 131 mmol/L Low 136-144 [facility] Comment on above: Order Comment: Shira feldman Type: BLOOD SPECIMENOrdering Facility: [facility] Address: [address] [place] [address] Performed By: #### 2 4321-2 ####[facility]ORATORYCLIA [id number] [place] [address] [place] Urea nitrogen [Mass/Vol] 13 mg/dL Normal 9-24 [facility] Comment on above: Order Comment: Speci men Type: BLOOD SPECIMENOrdering Facility: [facility] Address: [address] [place] [address] Performed By: #### 2 4321-2 ####[facility]ORATORYCLIA [id number] [place] [address] [place] CBC W Auto Differential pane l (Bld)on 08-14-2021 Basophils (Bld) [#/Vol] 10*3/uL Normal <0.11 [facility] Comment on above: Order Comment: Speci men Type: BLOOD SPECIMENOrdering Facility: [facility] Address: [address] [place] [address] Performed By: #### 5 7021-8 ####[facility]ORATORYCLIA [id number] [address] [place] Basophils/100 WBC (Bld) 0.2 % Normal [facility] Comment on above: Order Comment: Speci men Type: BLOOD SPECIMENOrdering Facility: [facility] Address: [address] [place] [address] Performed By: #### 5 7021-8 ####[facility]ORATORYCLIA [id number] [address] Differential cell count method Nom (Bld) Auto Normal [facility] Comment on above: Order Comment: Speci men Type: BLOOD SPECIMENOrdering Facility: [facility] Address: [address] [place] [address] Performed By: #### 5 7021-8 ####[facility]ORATORYCLIA [id number] [address] [place] Eosinophils (Bld) [#/Vol] 0.23 10*3/uL Normal <0.46 [facility] Comment on above: Order Comment: Speci men Type: BLOOD SPECIMENOrdering Facility: [facility] Address: [address] [place] [address] Performed By: #### 5 7021-8 ####[facility]ATORYCLIA [id number] [address] Eosinophils/100 WBC (Bld) 2.7 % Normal [facility] Comment on above: Order Comment: Speci men Type: BLOOD SPECIMENOrdering Facility: [facility] Address: [address] [place] [address] Performed By: #### 5 7021-8 ####[facility]ATORYCLIA [id number] [address] Erythrocyte distribution width (RBC) [Ratio] 16.6 % High 11.5-15.0 [facility] Comment on above: Order Comment: Speci men Type: BLOOD SPECIMENOrdering Facility: [facility] Address: [address] [place] [address] Performed By: #### 5 7021-8 ####[facility]ATORYCLIA [id number] [address] Hematocrit (Bld) [Volume fraction] 28.6 % Low 39.0-51.0 [facility] Comment on above: Order Comment: Speci men Type: BLOOD SPECIMENOrdering Facility: [facility] Address: [address] [place] [address] Performed By: #### 5 7021-8 ####[facility]ATORYCLIA [id number] [address] [place] Hemoglobin (Bld) [Mass/Vol] 9.0 g/dL Low 13.0-17.0 [facility] Comment on above: Order Comment: Speci men Type: BLOOD SPECIMENOrdering Facility: [facility] Address: [address] [place] [address] Performed By: #### 5 7021-8 ####[facility]ATORYCLIA [id number] [address] IMMATURE GRAN % 0.2 % Normal [facility] Comment on above: Order Comment: Speci men Type: BLOOD SPECIMENOrdering Facility: [facility] Address: [address] [place] [address] Performed By: #### 5 7021-8 ####[facility]ATORYCLIA [id number] [address] IMMATURE GRAN ABS <0.03 Normal <0.10 [facility] Comment on above: Order Comment: Speci men Type: BLOOD SPECIMENOrdering Facility: [facility] Address: [address] [place] [address] Performed By: #### 5 7021-8 ####[facility]ATORYCLIA [id number] [address] Lymphocytes (Bld) [#/Vol] 1.33 10*3/uL Normal 1.00-4.00 [facility] Comment on above: Order Comment: Speci men Type: BLOOD SPECIMENOrdering Facility: [facility] Address: [address] [place] [address] Performed By: #### 5 7021-8 ####[facility]ATORYCLIA [id number] [address] Lymphocytes/100 WBC (Bld) 15.6 % Normal [facility] Comment on above: Order Comment: Speci men Type: BLOOD SPECIMENOrdering Facility: [facility] Address: [address] [place] [address] Performed By: #### 5 7021-8 ####[facility]ATORYCLIA [id number] [address] MCH (RBC) [Entitic mass] 29.0 pg Normal 26.0-34.0 [facility] Comment on above: Order Comment: Speci men Type: BLOOD SPECIMENOrdering Facility: [facility] Address: [address] [place] [address] Performed By: #### 5 7021-8 ####[facility]ATORYCLIA [id number] [address] MCHC (RBC) [Mass/Vol] 31.5 g/dL Normal 30.5-36.0 [facility] Comment on above: Order Comment: Speci men Type: BLOOD SPECIMENOrdering Facility: [facility] Address: [address] [place] [address] Performed By: #### 5 7021-8 ####[facility]ATORYCLIA [id number] [address] MCV (RBC) [Entitic vol] 92.3 fL Normal 80.0-100.0 [facility] Comment on above: Order Comment: Speci men Type: BLOOD SPECIMENOrdering Facility: [facility] Address: [address] [place] [address] Performed By: #### 5 7021-8 ####[facility]ATORYCLIA [id number] [address] [place] Monocytes (Bld) [#/Vol] 0.44 10*3/uL Normal <0.87 [facility] Comment on above: Order Comment: Speci men Type: BLOOD SPECIMENOrdering Facility: [facility] Address: [address] [place] [address] Performed By: #### 5 7021-8 ####[facility]ATORYCLIA [id number] [address] Monocytes/100 WBC (Bld) 5.2 % Normal [facility] Comment on above: Order Comment: Speci men Type: BLOOD SPECIMENOrdering Facility: [facility] Address: [address] [place] [address] Performed By: #### 5 7021-8 ####[facility]ORATORYCLIA [id number] [address] STATES [facility] Neutrophils (Bld) [#/Vol] 6.46 10*3/uL Normal 1.45-7.50 [facility] Comment on above: Order Comment: Speci men Type: BLOOD SPECIMENOrdering Facility: [facility] Address: [address] [place] [address] Performed By: #### 5 7021-8 ####[facility]ORATORYCLIA [id number] [address] [facility] Neutrophils/100 WBC (Bld) 76.1 % Normal [facility] Comment on above: Order Comment: Speci men Type: BLOOD SPECIMENOrdering Facility: [facility] Address: [address] [place] [address] Performed By: #### 5 7021-8 ####[facility]ATORYCLIA [id number] [address] [place] Nucleated RBC (Bld) [#/Vol] 10*3/uL Normal <0.01 [facility] Comment on above: Order Comment: Speci men Type: BLOOD SPECIMENOrdering Facility: [facility] Address: [address] [place] [address] Performed By: #### 5 7021-8 ####[facility]ATORYCLIA [id number] [address] Nucleated RBC/100 WBC (Bld) [Ratio] 0.0 /100 WBC Normal [facility] Comment on above: Order Comment: Speci men Type: BLOOD SPECIMENOrdering Facility: [facility] Address: [address] [place] [address] Performed By: #### 5 7021-8 ####[facility]ORATORYCLIA [id number] [address] [place] Platelet mean volume (Bld) [Entitic vol] 9.5 fL Normal 9.0-12.7 [facility] Comment on above: Order Comment: Speci men Type: BLOOD SPECIMENOrdering Facility: [facility] Address: [address] Performed By: #### 5 7021-8 ####[facility]ATORYCLIA [id number] [address] [place] Platelets (Bld) [#/Vol] 247 10*3/uL Normal 150-400 [facility] Comment on above: Order Comment: Speci men Type: BLOOD SPECIMENOrdering Facility: [facility] Address: [address] [place], [place] [address] Performed By: #### 5 7021-8 ####[facility]ORATORYCLIA [id number] [address] STATES OF [facility] RBC (Bld) [#/Vol] 3.10 10*6/uL Low 4.20-6.00 [facility] Comment on above: Order Comment: Speci men Type: BLOOD SPECIMENOrdering Facility: [facility] Address: [address] [place] [address] Performed By: #### 5 7021-8 ####[facility]ATORYCLIA [id number] [address] [place] WBC (Bld) [#/Vol] 8.50 10*3/uL Normal 3.70-11.00 [facility] Comment on above: Order Comment: Speci men Type: BLOOD SPECIMENOrdering Facility: [facility] Address: [address] [place] [address] Performed By: #### 5 7021-8 ####[facility]ORATORYCLIA [id number] [address] [place] CONSULTon 08-14-2021 CONSULT Normal [facility] NURSING PROGon 08-14-2021 NURSING PROG Normal [facility] CBC W Auto Differential pane l (Bld)on 08-13-2021 Basophils (Bld) [#/Vol] 10*3/uL Normal <0.11 [facility] Comment on above: Order Comment: Speci men Type: BLOOD SPECIMENOrdering Facility: [facility] Address: [address] [place] [address] Performed By: #### 5 7021-8 ####[facility]ATORYCLIA [id number] [address] Basophils/100 WBC (Bld) 0.2 % Normal [facility] Comment on above: Order Comment: Speci men Type: BLOOD SPECIMENOrdering Facility: [facility] Address: [address] [place] [address] Performed By: #### 5 7021-8 ####[facility]ATORYCLIA [id number] [address] Differential cell count method Nom (Bld) Auto Normal [facility] Comment on above: Order Comment: Speci men Type: BLOOD SPECIMENOrdering Facility: [facility] Address: [address] [place] [address] Performed By: #### 5 7021-8 ####[facility]ATORYCLIA [id number] [address] [place] Eosinophils (Bld) [#/Vol] 0.31 10*3/uL Normal <0.46 [facility] Comment on above: Order Comment: Speci men Type: BLOOD SPECIMENOrdering Facility: [facility] Address: [address] [place] [address] Performed By: #### 5 7021-8 ####[facility]ATORYCLIA [id number] [address] Eosinophils/100 WBC (Bld) 3.7 % Normal [facility] Comment on above: Order Comment: Speci men Type: BLOOD SPECIMENOrdering Facility: [facility] Address: [address] [place] [address] Performed By: #### 5 7021-8 ####[facility]ATORYCLIA [id number] [address] Erythrocyte distribution width (RBC) [Ratio] 16.6 % High 11.5-15.0 [facility] Comment on above: Order Comment: Speci men Type: BLOOD SPECIMENOrdering Facility: [facility] Address: [address] [place] [address] Performed By: #### 5 7021-8 ####[facility]ATORYCLIA [id number] [address] Hematocrit (Bld) [Volume fraction] 27.5 % Low 39.0-51.0 [facility] Comment on above: Order Comment: Speci men Type: BLOOD SPECIMENOrdering Facility: [facility] Address: [address] [place] [address] Performed By: #### 5 7021-8 ####[facility]ATORYCLIA [id number] [address] OF [facility] Hemoglobin (Bld) [Mass/Vol] 8.4 g/dL Low 13.0-17.0 [facility] Comment on above: Order Comment: Speci men Type: BLOOD SPECIMENOrdering Facility: [facility] Address: [address] [place] [address] Performed By: #### 5 7021-8 ####[facility]ATORYCLIA [id number] [address] IMMATURE GRAN % 0.5 % Normal [facility] Comment on above: Order Comment: Speci men Type: BLOOD SPECIMENOrdering Facility: [facility] Address: [address] [place] [address] Performed By: #### 5 7021-8 ####[facility]ATORYCLIA [id number] [address] IMMATURE GRAN ABS 0.04 k/uL Normal <0.10 [facility] Comment on above: Order Comment: Speci men Type: BLOOD SPECIMENOrdering Facility: [facility] Address: [address] [place] [address] Performed By: #### 5 7021-8 ####[facility]ORATORYCLIA [id number] [address] [place] Lymphocytes (Bld) [#/Vol] 1.55 10*3/uL Normal 1.00-4.00 [facility] Comment on above: Order Comment: Speci men Type: BLOOD SPECIMENOrdering Facility: [facility] Address: [address] [place] [address] Performed By: #### 5 7021-8 ####[facility]ATORYCLIA [id number] [address] Lymphocytes/100 WBC (Bld) 18.7 % Normal [facility] Comment on above: Order Comment: Speci men Type: BLOOD SPECIMENOrdering Facility: [facility] Address: [address] [place] [address] Performed By: #### 5 7021-8 ####[facility]ATORYCLIA [id number] [address] MCH (RBC) [Entitic mass] 28.9 pg Normal 26.0-34.0 [facility] Comment on above: Order Comment: Speci men Type: BLOOD SPECIMENOrdering Facility: [facility] Address: [address] [place] [address] Performed By: #### 5 7021-8 ####[facility]ATORYCLIA [id number] [address] MCHC (RBC) [Mass/Vol] 30.5 g/dL Normal 30.5-36.0 [facility] Comment on above: Order Comment: Speci men Type: BLOOD SPECIMENOrdering Facility: [facility] Address: [address] [place] [address] Performed By: #### 5 7021-8 ####[facility]ATORYCLIA [id number] [address] MCV (RBC) [Entitic vol] 94.5 fL Normal 80.0-100.0 [facility] Comment on above: Order Comment: Speci men Type: BLOOD SPECIMENOrdering Facility: [facility] Address: [address] [place] [address] Performed By: #### 5 7021-8 ####[facility]ATORYCLIA [id number] [address] Monocytes (Bld) [#/Vol] 0.47 10*3/uL Normal <0.87 [facility] Comment on above: Order Comment: Speci men Type: BLOOD SPECIMENOrdering Facility: [facility] Address: [address] [place] [address] Performed By: #### 5 7021-8 ####[facility]ATORYCLIA [id number] [address] Monocytes/100 WBC (Bld) 5.7 % Normal [facility] Comment on above: Order Comment: Speci men Type: BLOOD SPECIMENOrdering Facility: [facility] Address: [address] [place] [address] Performed By: #### 5 7021-8 ####[facility]ORATORYCLIA [id number] [place] [address] [place] Neutrophils (Bld) [#/Vol] 5.92 10*3/uL Normal 1.45-7.50 [facility] Comment on above: Order Comment: Speci men Type: BLOOD SPECIMENOrdering Facility: [facility] Address: [address] [place] [address] Performed By: #### 5 7021-8 ####[facility]ATORYCLIA [id number] [address] [place] Neutrophils/100 WBC (Bld) 71.2 % Normal [facility] Comment on above: Order Comment: Speci men Type: BLOOD SPECIMENOrdering Facility: [facility] Address: [address] [place] [address] Performed By: #### 5 7021-8 ####[facility]ATORYCLIA [id number] [address] [place] Nucleated RBC (Bld) [#/Vol] 10*3/uL Normal <0.01 [facility] Comment on above: Order Comment: Speci men Type: BLOOD SPECIMENOrdering Facility: [facility] Address: [address] [place] [address] Performed By: #### 5 7021-8 ####[facility]ATORYCLIA [id number] [address] [place] Nucleated RBC/100 WBC (Bld) [Ratio] 0.0 /100 WBC Normal [facility] Comment on above: Order Comment: Speci men Type: BLOOD SPECIMENOrdering Facility: [facility] Address: [address] [place] [address] Performed By: #### 5 7021-8 ####[facility]ATORYCLIA [id number] [address] [place] Platelet mean volume (Bld) [Entitic vol] 9.9 fL Normal 9.0-12.7 [facility] Comment on above: Order Comment: Speci men Type: BLOOD SPECIMENOrdering Facility: [facility] Address: [address] [place] [address] Performed By: #### 5 7021-8 ####[facility]ATORYCLIA [id number] [place] [address] [place] Platelets (Bld) [#/Vol] 203 10*3/uL Normal 150-400 [facility] Comment on above: Order Comment: Speci men Type: BLOOD SPECIMENOrdering Facility: [facility] Address: [address] [place] [address] Performed By: #### 5 7021-8 ####[facility]ORATORYCLIA [id number] [place] [address] [place] RBC (Bld) [#/Vol] 2.91 10*6/uL Low 4.20-6.00 [facility] Comment on above: Order Comment: Speci men Type: BLOOD SPECIMENOrdering Facility: [facility] Address: [address] [place] [address] Performed By: #### 5 7021-8 ####[facility]ATORYCLIA [id number] [place] [address] [place] WBC (Bld) [#/Vol] 8.31 10*3/uL Normal 3.70-11.00 [facility] Comment on above: Order Comment: Speci men Type: BLOOD SPECIMENOrdering Facility: [facility] Address: [address] [place] [address] Performed By: #### 5 7021-8 ####[facility]ORATORYCLIA [id number] [address] [place] aPTT PPPon 08-13-2021 aPTT Coag (PPP) [Time] 69.7 s High 23.0-32.4 [facility] Comment on above: Order Comment: Speci men Type: BLOOD SPECIMENOrdering Facility: [facility] Address: [address] [place] [address] Performed By: #### 1 4979-9 ####[facility]ORATORYCLIA [id number] [place] [address] [place] aPTT Coag (PPP) [Time] 70.6 s High 23.0-32.4 [facility] Comment on above: Order Comment: Speci men Type: BLOOD SPECIMENOrdering Facility: [facility] Address: [address] [place] [address] Performed By: #### 1 4979-9 ####[facility]ATORYCLIA [id number] [place] [address] [place] ALLIED HEALTHon 08-12-2021 ALLIED HEALTH Normal [facility] ALLIED HEALTH Normal [facility] Basic metabolic 2000 panelon 08-12-2021 Anion gap [Moles/Vol] 7 mmol/L Low 9-18 [facility] Comment on above: Order Comment: Speci men Type: BLOOD SPECIMENOrdering Facility: [facility] Address: [address] [place] [address] Performed By: #### 2 4321-2, , 2776-05 ####[facility]ORATORYCLIA [id number] [place] [address] [place] Calcium [Mass/Vol] 8.8 mg/dL Normal 8.5-10.2 [facility] Comment on above: Order Comment: Speci men Type: BLOOD SPECIMENOrdering Facility: [facility] Address: [address] [place], [place] [address] Performed By: #### 2 4321-2, , 2776-05 ####[facility]ORATORYCLIA [id number] [place] [address] [place] Chloride [Moles/Vol] 96 mmol/L Low 97-105 [facility] Comment on above: Order Comment: Speci men Type: BLOOD SPECIMENOrdering Facility: [facility] Address: [address] [place] [address] Performed By: #### 2 4321-2, , 2776-05 ####[facility]ITALCLIA [id number] [address] CO2 [Moles/Vol] 32 mmol/L High 22-30 [facility] Comment on above: Order Comment: Speci men Type: BLOOD SPECIMENOrdering Facility: [facility] Address: [address] [place] [address] Performed By: #### 2 4321-2, , 2776-05 ####[facility] [id number] [address] Creatinine [Mass/Vol] 0.52 mg/dL Low 0.73-1.22 [facility] Comment on above: Order Comment: Speci men Type: BLOOD SPECIMENOrdering Facility: [facility] Address: [address] [place] [address] Performed By: #### 2 4321-2, , 2776-05 ####[facility] [id number] [address] ESTIMATED GLOMERULAR FILTRATION RATE 109 mL/min/1.73m??? Normal >=60 [facility] Comment on above: Order Comment: Speci men Type: BLOOD SPECIMENOrdering Facility: [facility] Address: [address] [place] [address] Result Comment: Luzmaria mated Glomerular Filtration Rate [...] Performed By: #### 2 4321-2, , 2776-05 ####[facility]ORATORYCLIA [id number] [place] [address] [place] Glucose [Mass/Vol] 119 mg/dL High 74-99 [facility] Comment on above: Order Comment: Shira feldman Type: BLOOD SPECIMENOrdering Facility: [facility] Address: [address] [place], [place] [id number] Result Comment: The [place] [employer] (ADA) provides guidance for cutoff [...] Standards of Medical Care in Diabetes 2016, [place] [employer]. Diabetes Care. 2016.39(Suppl 1). Performed By: #### 2 4321-2, , 2776-05 ####[facility]PITALCLIA [id number] [place] [address] [place] Potassium [Moles/Vol] 3.7 mmol/L Normal 3.7-5.1 [facility] Comment on above: Order Comment: Shira feldman Type: BLOOD SPECIMENOrdering Facility: [facility] Address: [address] [id number] Performed By: #### 2 4321-2, , 2776-05 ####[facility]ATORYCLIA [id number] [place] [address] [place] Sodium [Moles/Vol] 135 mmol/L Low 136-144 [facility] Comment on above: Order Comment: Shira feldman Type: BLOOD SPECIMENOrdering Facility: [facility] Address: [address] [id number] Performed By: #### 2 4321-2, , 2776-05 ####[facility]ORATORYCLIA [id number] [place] [address] [place] Urea nitrogen [Mass/Vol] 20 mg/dL Normal 9-24 [facility] Comment on above: Order Comment: Speci men Type: BLOOD SPECIMENOrdering Facility: [facility] Address: [address] [place] [address] Performed By: #### 2 4321-2, 19113-7, 2777-1 ####[facility]ORATORYCLIA [id number] [address] [place] CASE MANAGEMon 08-12-2021 CASE MANAGEM Normal [facility] CBC W Auto Differential pane l (Bld)on 08-12-2021 Basophils (Bld) [#/Vol] 0.04 10*3/uL Normal <0.11 [facility] Comment on above: Order Comment: Speci men Type: BLOOD SPECIMENOrdering Facility: [facility] Address: [address] [place] [address] Performed By: #### 5 7021-8 ####[facility] LABORATORYCLIA [id number] [address] [place] Basophils/100 WBC (Bld) 0.5 % Normal [facility] Comment on above: Order Comment: Speci men Type: BLOOD SPECIMENOrdering Facility: [facility] Address: [address] [place] [address] Performed By: #### 5 7021-8 ####[facility] LABORATORYCLIA [id number] [address] [place] Differential cell count method Nom (Bld) Auto Normal [facility] Comment on above: Order Comment: Speci men Type: BLOOD SPECIMENOrdering Facility: [facility] Address: [address] [place] [address] Performed By: #### 5 7021-8 ####[facility] LABORATORYCLIA [id number] [place] [address] [place] Eosinophils (Bld) [#/Vol] 0.19 10*3/uL Normal <0.46 [facility] Comment on above: Order Comment: Speci men Type: BLOOD SPECIMENOrdering Facility: [facility] Address: [address] [place] [address] Performed By: #### 5 7021-8 ####[facility] LABORATORYCLIA [id number] [address] [place] Eosinophils/100 WBC (Bld) 2.3 % Normal [facility] Comment on above: Order Comment: Speci men Type: BLOOD SPECIMENOrdering Facility: [facility] Address: [address] [place] [address] Performed By: #### 5 7021-8 ####[facility] LABORATORYCLIA [id number] [address] Erythrocyte distribution width (RBC) [Ratio] 17.1 % High 11.5-15.0 [facility] Comment on above: Order Comment: Speci men Type: BLOOD SPECIMENOrdering Facility: [facility] Address: [address] [place] [address] Performed By: #### 5 7021-8 ####[facility] LABORATORYCLIA [id number] [address] Hematocrit (Bld) [Volume fraction] 25.3 % Low 39.0-51.0 [facility] Comment on above: Order Comment: Speci men Type: BLOOD SPECIMENOrdering Facility: [facility] Address: [address] [place] [address] Performed By: #### 5 7021-8 ####[facility] LABORATORYCLIA [id number] [address] [place] Hemoglobin (Bld) [Mass/Vol] 7.9 g/dL Low 13.0-17.0 [facility] Comment on above: Order Comment: Speci men Type: BLOOD SPECIMENOrdering Facility: [facility] Address: [address] [place] [address] Performed By: #### 5 7021-8 ####[facility]ORATORYCLIA [id number] [address] IMMATURE GRAN % 0.5 % Normal [facility] Comment on above: Order Comment: Speci men Type: BLOOD SPECIMENOrdering Facility: [facility] Address: [address] [place] [address] Performed By: #### 5 7021-8 ####[facility]ORATORYCLIA [id number] [address] IMMATURE GRAN ABS 0.04 k/uL Normal <0.10 [facility] Comment on above: Order Comment: Speci men Type: BLOOD SPECIMENOrdering Facility: [facility] Address: [address] [place] [address] Performed By: #### 5 7021-8 ####[facility]ORATORYCLIA [id number] [address] Lymphocytes (Bld) [#/Vol] 1.69 10*3/uL Normal 1.00-4.00 [facility] Comment on above: Order Comment: Speci men Type: BLOOD SPECIMENOrdering Facility: [facility] Address: [address] [place] [address] Performed By: #### 5 7021-8 ####[facility]ORATORYCLIA [id number] [address] Lymphocytes/100 WBC (Bld) 20.1 % Normal [facility] Comment on above: Order Comment: Speci men Type: BLOOD SPECIMENOrdering Facility: [facility] Address: [address] [place] [address] Performed By: #### 5 7021-8 ####[facility]ORATORYCLIA [id number] [address] STATES [facility] MCH (RBC) [Entitic mass] 28.5 pg Normal 26.0-34.0 [facility] Comment on above: Order Comment: Speci men Type: BLOOD SPECIMENOrdering Facility: [facility] Address: [address] [place] [address] Performed By: #### 5 7021-8 ####[facility]ORATORYCLIA [id number] [address] STATES OF [facility] MCHC (RBC) [Mass/Vol] 31.2 g/dL Normal 30.5-36.0 [facility] Comment on above: Order Comment: Speci men Type: BLOOD SPECIMENOrdering Facility: [facility] Address: [address] [place] [address] Performed By: #### 5 7021-8 ####[facility] LABORATORYCLIA [id number] [address] MCV (RBC) [Entitic vol] 91.3 fL Normal 80.0-100.0 [facility] Comment on above: Order Comment: Speci men Type: BLOOD SPECIMENOrdering Facility: [facility] Address: [address] [place] [address] Performed By: #### 5 7021-8 ####[facility]ORATORYCLIA [id number] [address] [place] Monocytes (Bld) [#/Vol] 0.53 10*3/uL Normal <0.87 [facility] Comment on above: Order Comment: Speci men Type: BLOOD SPECIMENOrdering Facility: [facility] Address: [address] [place] [address] Performed By: #### 5 7021-8 ####[facility]ORATORYCLIA [id number] [address] Monocytes/100 WBC (Bld) 6.3 % Normal [facility] Comment on above: Order Comment: Speci men Type: BLOOD SPECIMENOrdering Facility: [facility] Address: [address] [place] [address] Performed By: #### 5 7021-8 ####[facility]ORATORYCLIA [id number] [address] [place] Neutrophils (Bld) [#/Vol] 5.90 10*3/uL Normal 1.45-7.50 [facility] Comment on above: Order Comment: Speci men Type: BLOOD SPECIMENOrdering Facility: [facility] Address: [address] [place] [address] Performed By: #### 5 7021-8 ####[facility]ORATORYCLIA [id number] [address] Neutrophils/100 WBC (Bld) 70.3 % Normal [facility] Comment on above: Order Comment: Speci men Type: BLOOD SPECIMENOrdering Facility: [facility] Address: [address] [place] [address] Performed By: #### 5 7021-8 ####[facility]ORATORYCLIA [id number] [address] Nucleated RBC (Bld) [#/Vol] 10*3/uL Normal <0.01 [facility] Comment on above: Order Comment: Speci men Type: BLOOD SPECIMENOrdering Facility: [facility] Address: [address] [place] [address] Performed By: #### 5 7021-8 ####[facility]ORATORYCLIA [id number] [address] Nucleated RBC/100 WBC (Bld) [Ratio] 0.0 /100 WBC Normal [facility] Comment on above: Order Comment: Speci men Type: BLOOD SPECIMENOrdering Facility: [facility] Address: [address] [place] [address] Performed By: #### 5 7021-8 ####[facility]ORATORYCLIA [id number] [address] Platelet mean volume (Bld) [Entitic vol] 9.8 fL Normal 9.0-12.7 [facility] Comment on above: Order Comment: Speci men Type: BLOOD SPECIMENOrdering Facility: [facility] Address: [address] [place] [address] Performed By: #### 5 7021-8 ####[facility]ORATORYCLIA [id number] [address] [place] Platelets (Bld) [#/Vol] 164 10*3/uL Normal 150-400 [facility] Comment on above: Order Comment: Speci men Type: BLOOD SPECIMENOrdering Facility: [facility] Address: [address] [place] [address] Performed By: #### 5 7021-8 ####[facility]ORATORYCLIA [id number] [address] OF [facility] RBC (Bld) [#/Vol] 2.77 10*6/uL Low 4.20-6.00 [facility] Comment on above: Order Comment: Speci men Type: BLOOD SPECIMENOrdering Facility: [facility] Address: [address] [place] [address] Performed By: #### 5 7021-8 ####[facility]ORATORYCLIA [id number] [address] WBC (Bld) [#/Vol] 8.39 10*3/uL Normal 3.70-11.00 [facility] Comment on above: Order Comment: Speci men Type: BLOOD SPECIMENOrdering Facility: [facility] Address: [address] [place] [address] Performed By: #### 5 7021-8 ####[facility]ORATORYCLIA [id number] [address] BRAIN WO IVCONon 08-13-[address] BRAIN WO IVCON Normal [facility] CT BRAIN WO IVCON Normal [facility] Magnesium SerPl-mCncon 08-12 Magnesium [Mass/Vol] 2.0 mg/dL Normal 1.7-2.3 [facility] Comment on above: Order Comment: Speci men Type: BLOOD SPECIMENOrdering Facility: [facility] Address: [address] [place] [address] Performed By: #### 2 4321-2, 88076-9, 2777-1 ####[facility]ORATORYCLIA [id number] [address] Phosphate SerPl-mCncon 08-12 Phosphate [Mass/Vol] 2.9 mg/dL Normal 2.7-4.8 [facility] Comment on above: Order Comment: Speci men Type: BLOOD SPECIMENOrdering Facility: [facility] Address: [address] [place] [address] Performed By: #### 2 4321-2, 55685-0, 2777-1 ####[facility]ORATORYCLIA [id number] [address] THERAPY NTon 08-12-2021 THERAPY NT Normal [facility] THERAPY NT Normal [facility] aPTT PPPon 08-12-2021 aPTT Coag (PPP) [Time] 94.2 s High 23.0-32.4 [facility] Comment on above: Order Comment: Speci men Type: BLOOD SPECIMENOrdering Facility: [facility] Address: [address] [place] [address] Performed By: #### 1 4979-9 ####[facility]ORATORYCLIA [id number] [address] aPTT Coag (PPP) [Time] 84.4 s High 23.0-32.4 [facility] Comment on above: Order Comment: Speci men Type: BLOOD SPECIMENOrdering Facility: [facility] Address: [address] [place] [address] Performed By: #### 1 4979-9 ####[facility]ATORYCLIA [id number] [address] aPTT Coag (PPP) [Time] 71.3 s High 23.0-32.4 [facility] Comment on above: Order Comment: Speci men Type: BLOOD SPECIMENOrdering Facility: [facility] Address: [address] [place] [address] Performed By: #### 1 4979-9 ####[facility]ORATORYCLIA [id number] [address] OF [facility] ALLIED HEALTHon 08-11-2021 ALLIED HEALTH Normal [facility] CBC W Auto Differential pane l (Bld)on 08-11-2021 Basophils (Bld) [#/Vol] 10*3/uL Normal <0.11 [facility] Comment on above: Order Comment: Speci men Type: BLOOD SPECIMENOrdering Facility: [facility] Address: [address] [address] Performed By: #### 5 7021-8 ####[facility] LABORATORYCLIA [id number] [place] [address] [place] Basophils/100 WBC (Bld) 0.2 % Normal [facility] Comment on above: Order Comment: Speci men Type: BLOOD SPECIMENOrdering Facility: [facility] Address: [address] [place] [address] Performed By: #### 5 7021-8 ####[facility]ORATORYCLIA [id number] [place] [address] [place] Differential cell count method Nom (Bld) Auto Normal [facility] Comment on above: Order Comment: Speci men Type: BLOOD SPECIMENOrdering Facility: [facility] Address: [address] [place] [address] Performed By: #### 5 7021-8 ####[facility]ORATORYCLIA [id number] [place] [address] [place] Eosinophils (Bld) [#/Vol] 0.16 10*3/uL Normal <0.46 [facility] Comment on above: Order Comment: Speci men Type: BLOOD SPECIMENOrdering Facility: [facility] Address: [address] [address] Performed By: #### 5 7021-8 ####[facility]ORATORYCLIA [id number] [address] [place] Eosinophils/100 WBC (Bld) 1.8 % Normal [facility] Comment on above: Order Comment: Speci men Type: BLOOD SPECIMENOrdering Facility: [facility] Address: [address] [place] [address] Performed By: #### 5 7021-8 ####[facility]ORATORYCLIA [id number] [address] Erythrocyte distribution width (RBC) [Ratio] 17.3 % High 11.5-15.0 [facility] Comment on above: Order Comment: Speci men Type: BLOOD SPECIMENOrdering Facility: [facility] Address: [address] [place] [address] Performed By: #### 5 7021-8 ####[facility]ORATORYCLIA [id number] [address] Hematocrit (Bld) [Volume fraction] 26.6 % Low 39.0-51.0 [facility] Comment on above: Order Comment: Speci men Type: BLOOD SPECIMENOrdering Facility: [facility] Address: [address] [place] [address] Performed By: #### 5 7021-8 ####[facility]ORATORYCLIA [id number] [address] Hemoglobin (Bld) [Mass/Vol] 8.2 g/dL Low 13.0-17.0 [facility] Comment on above: Order Comment: Speci men Type: BLOOD SPECIMENOrdering Facility: [facility] Address: [address] [place] [address] Performed By: #### 5 7021-8 ####[facility]ORATORYCLIA [id number] [address] IMMATURE GRAN % 0.6 % Normal [facility] Comment on above: Order Comment: Speci men Type: BLOOD SPECIMENOrdering Facility: [facility] Address: [address] [place] [address] Performed By: #### 5 7021-8 ####[facility]ORATORYCLIA [id number] [address] IMMATURE GRAN ABS 0.05 k/uL Normal <0.10 [facility] Comment on above: Order Comment: Speci men Type: BLOOD SPECIMENOrdering Facility: [facility] Address: [address] [address] Performed By: #### 5 7021-8 ####[facility]ORATORYCLIA [id number] [address] OF [facility] Lymphocytes (Bld) [#/Vol] 1.40 10*3/uL Normal 1.00-4.00 [facility] Comment on above: Order Comment: Speci men Type: BLOOD SPECIMENOrdering Facility: [facility] Address: [address] [place] [address] Performed By: #### 5 7021-8 ####[facility]ORATORYCLIA [id number] [address] Lymphocytes/100 WBC (Bld) 15.8 % Normal [facility] Comment on above: Order Comment: Speci men Type: BLOOD SPECIMENOrdering Facility: [facility] Address: [address] [place] [address] Performed By: #### 5 7021-8 ####[facility]ORATORYCLIA [id number] [address] MCH (RBC) [Entitic mass] 28.4 pg Normal 26.0-34.0 [facility] Comment on above: Order Comment: Speci men Type: BLOOD SPECIMENOrdering Facility: [facility] Address: [address] [place] [address] Performed By: #### 5 7021-8 ####[facility]ORATORYCLIA [id number] [address] STATES OF [facility] MCHC (RBC) [Mass/Vol] 30.8 g/dL Normal 30.5-36.0 [facility] Comment on above: Order Comment: Speci men Type: BLOOD SPECIMENOrdering Facility: [facility] Address: [address] [place] [address] Performed By: #### 5 7021-8 ####[facility]ORATORYCLIA [id number] [address] MCV (RBC) [Entitic vol] 92.0 fL Normal 80.0-100.0 [facility] Comment on above: Order Comment: Speci men Type: BLOOD SPECIMENOrdering Facility: [facility] Address: [address] [place] [address] Performed By: #### 5 7021-8 ####[facility]ORATORYCLIA [id number] [place] [address] [place] Monocytes (Bld) [#/Vol] 0.61 10*3/uL Normal <0.87 [facility] Comment on above: Order Comment: Speci men Type: BLOOD SPECIMENOrdering Facility: [facility] Address: [address] [place] [address] Performed By: #### 5 7021-8 ####[facility]ORATORYCLIA [id number] [place] [address] [place] Monocytes/100 WBC (Bld) 6.9 % Normal [facility] Comment on above: Order Comment: Speci men Type: BLOOD SPECIMENOrdering Facility: [facility] Address: [address] [place] [address] Performed By: #### 5 7021-8 ####[facility]ORATORYCLIA [id number] [place] [address] [place] Neutrophils (Bld) [#/Vol] 6.62 10*3/uL Normal 1.45-7.50 [facility] Comment on above: Order Comment: Speci men Type: BLOOD SPECIMENOrdering Facility: [facility] Address: [address] [place] [address] Performed By: #### 5 7021-8 ####[facility]ORATORYCLIA [id number] [place] [address] [place] Neutrophils/100 WBC (Bld) 74.7 % Normal [facility] Comment on above: Order Comment: Speci men Type: BLOOD SPECIMENOrdering Facility: [facility] Address: [address] [place] [address] Performed By: #### 5 7021-8 ####[facility]ORATORYCLIA [id number] [address] [place] Nucleated RBC (Bld) [#/Vol] 10*3/uL Normal <0.01 [facility] Comment on above: Order Comment: Speci men Type: BLOOD SPECIMENOrdering Facility: [facility] Address: [address] [place] [address] Performed By: #### 5 7021-8 ####[facility]ORATORYCLIA [id number] [address] [place] Nucleated RBC/100 WBC (Bld) [Ratio] 0.0 /100 WBC Normal [facility] Comment on above: Order Comment: Speci men Type: BLOOD SPECIMENOrdering Facility: [facility] Address: [address] [place] [address] Performed By: #### 5 7021-8 ####[facility]ORATORYCLIA [id number] [address] [place] Platelet mean volume (Bld) [Entitic vol] 9.8 fL Normal 9.0-12.7 [facility] Comment on above: Order Comment: Speci men Type: BLOOD SPECIMENOrdering Facility: [facility] Address: [address] [place] [address] Performed By: #### 5 7021-8 ####[facility]ORATORYCLIA [id number] [address] [place] Platelets (Bld) [#/Vol] 157 10*3/uL Normal 150-400 [facility] Comment on above: Order Comment: Speci men Type: BLOOD SPECIMENOrdering Facility: [facility] Address: [address] [place] [address] Performed By: #### 5 7021-8 ####[facility]ORATORYCLIA [id number] [address] [place] RBC (Bld) [#/Vol] 2.89 10*6/uL Low 4.20-6.00 [facility] Comment on above: Order Comment: Speci men Type: BLOOD SPECIMENOrdering Facility: [facility] Address: [address] [place] [address] Performed By: #### 5 7021-8 ####[facility]ORATORYCLIA [id number] [address] WBC (Bld) [#/Vol] 8.86 10*3/uL Normal 3.70-11.00 [facility] Comment on above: Order Comment: Speci men Type: BLOOD SPECIMENOrdering Facility: [facility] Address: [address] [place] [address] Performed By: #### 5 7021-8 ####[facility]ORATORYCLIA [id number] [address] CBC panel Auto (Bld)on 08-11 Erythrocyte distribution width (RBC) [Ratio] 17.2 % High 11.5-15.0 [facility] Comment on above: Order Comment: Speci men Type: BLOOD SPECIMENOrdering Facility: [facility] Address: [address] [place] [address] Performed By: #### 5 8410-2 ####[facility]ORATORYCLIA [id number] [address] [place] Hematocrit (Bld) [Volume fraction] 27.0 % Low 39.0-51.0 [facility] Comment on above: Order Comment: Speci men Type: BLOOD SPECIMENOrdering Facility: [facility] Address: [address] [place] [address] Performed By: #### 5 8410-2 ####[facility]ORATORYCLIA [id number] [address] [place] Hemoglobin (Bld) [Mass/Vol] 8.3 g/dL Low 13.0-17.0 [facility] Comment on above: Order Comment: Speci men Type: BLOOD SPECIMENOrdering Facility: [facility] Address: [address] [place] [address] Performed By: #### 5 8410-2 ####[facility]ORATORYCLIA [id number] [address] MCH (RBC) [Entitic mass] 28.7 pg Normal 26.0-34.0 [facility] Comment on above: Order Comment: Speci men Type: BLOOD SPECIMENOrdering Facility: [facility] Address: [address] [place] [address] Performed By: #### 5 8410-2 ####[facility]ORATORYCLIA [id number] [address] MCHC (RBC) [Mass/Vol] 30.7 g/dL Normal 30.5-36.0 [facility] Comment on above: Order Comment: Speci men Type: BLOOD SPECIMENOrdering Facility: [facility] Address: [address] [place] [address] Performed By: #### 5 8410-2 ####[facility]ORATORYCLIA [id number] [address] MCV (RBC) [Entitic vol] 93.4 fL Normal 80.0-100.0 [facility] Comment on above: Order Comment: Speci men Type: BLOOD SPECIMENOrdering Facility: [facility] Address: [address] [place] [address] Performed By: #### 5 8410-2 ####[facility]ORATORYCLIA [id number] [address] Nucleated RBC (Bld) [#/Vol] 10*3/uL Normal <0.01 [facility] Comment on above: Order Comment: Speci men Type: BLOOD SPECIMENOrdering Facility: [facility] Address: [address] [place] [address] Performed By: #### 5 8410-2 ####[facility]ORATORYCLIA [id number] [address] Platelet mean volume (Bld) [Entitic vol] 9.8 fL Normal 9.0-12.7 [facility] Comment on above: Order Comment: Speci men Type: BLOOD SPECIMENOrdering Facility: [facility] Address: [address] [place] [address] Performed By: #### 5 8410-2 ####[facility]ORATORYCLIA [id number] [address] Platelets (Bld) [#/Vol] 169 10*3/uL Normal 150-400 [facility] Comment on above: Order Comment: Speci men Type: BLOOD SPECIMENOrdering Facility: [facility] Address: [address] [place] [address] Performed By: #### 5 8410-2 ####[facility]ORATORYCLIA [id number] [address] OF [facility] RBC (Bld) [#/Vol] 2.89 10*6/uL Low 4.20-6.00 [facility] Comment on above: Order Comment: Speci men Type: BLOOD SPECIMENOrdering Facility: [facility] Address: [address] [place] [address] Performed By: #### 5 8410-2 ####[facility]ORATORYCLIA [id number] [address] WBC (Bld) [#/Vol] 9.03 10*3/uL Normal 3.70-11.00 [facility] Comment on above: Order Comment: Speci men Type: BLOOD SPECIMENOrdering Facility: [facility] Address: [address] [place] [address] Performed By: #### 5 8410-2 ####[facility]ORATORYCLIA [id number] [address] BRAIN WO IVCONon 08-12-19 CT BRAIN WO IVCON Normal [facility] PT panel Coag (PPP)on 2021 INR Coag (PPP) [Relative time] 1.0 {INR} Normal 0.9-1.3 [facility] Comment on above: Order Comment: Speci men Type: BLOOD SPECIMENOrdering Facility: [facility] Address: [address] [place] [address] Result Comment: Yris min K Antagonist (VKA) Therapeutic Range: INR 2 to 3 (Target INR of 2.5)Note: For patients treated with VKA drugs, such as warfarin, the [employer] 2012 Guideline recommends [...] al. Chest 2012, 141:7S-47SAlba RA, et al. [facility] 2017, 70: 252-289 Performed By: #### 1 4979-9, 04023-8 ####[facility] LABORATORYCLIA [id number] [place] [address] [place] PT Coag (PPP) [Time] 11.4 s Normal 9.7-13.0 [facility] Comment on above: Order Comment: Shira feldman Type: BLOOD SPECIMENOrdering Facility: [facility] Address: [address] [place] [address] Performed By: #### 1 4979-9, 15665-1 ####[facility]ORATORYCLIA [id number] [place] [address] [place] THERAPY NTon 08-11-2021 THERAPY NT Normal [facility] US DVT LOWER BILon 2 US DVT LOWER RAINER Normal [facility] US DVT UPPER BILon 2 US DVT UPPER RAINER Normal [facility] aPTT PPPon 08-11-2021 aPTT Coag (PPP) [Time] 26.9 s Normal 23.0-32.4 [facility] Comment on above: Order Comment: Speccara feldman Type: BLOOD SPECIMENOrdering Facility: [facility] Address: [address] [address] Performed By: #### 1 4979-9, 32106-6 ####[facility]ORATORYCLIA [id number] [place] [address] [place] Basic metabolic 2000 panelon 08-10-2021 Anion gap [Moles/Vol] 11 mmol/L Normal 9-18 [facility] Comment on above: Order Comment: Speci men Type: BLOOD SPECIMENOrdering Facility: [facility] Address: [address] [place] [address] Performed By: #### 2 4321-2 ####[facility]ORATORYCLIA [id number] [place] [address] [place] Calcium [Mass/Vol] 8.7 mg/dL Normal 8.5-10.2 [facility] Comment on above: Order Comment: Speci men Type: BLOOD SPECIMENOrdering Facility: [facility] Address: [address] [place] [address] Performed By: #### 2 4321-2 ####[facility] LABORATORYCLIA [id number] [place] [address] [place] Chloride [Moles/Vol] 98 mmol/L Normal 97-105 [facility] Comment on above: Order Comment: Speci men Type: BLOOD SPECIMENOrdering Facility: [facility] Address: [address] [place] [address] Performed By: #### 2 4321-2 ####[facility]ATORYCLIA [id number] [place] [address] [place] CO2 [Moles/Vol] 28 mmol/L Normal 22-30 [facility] Comment on above: Order Comment: Speci men Type: BLOOD SPECIMENOrdering Facility: [facility] Address: [facility] [place] [address] Performed By: #### 2 4321-2 ####[facility] LABORATORYCLIA [id number] [place] [address] [place] Creatinine [Mass/Vol] 0.59 mg/dL Low 0.73-1.22 [facility] Comment on above: Order Comment: Shira feldman Type: BLOOD SPECIMENOrdering Facility: [facility] Address: [address] [place] [address] Performed By: #### 2 4321-2 ####[facility]ORATORYCLIA [id number] [address] [place] ESTIMATED GLOMERULAR FILTRATION RATE 105 mL/min/1.73m??? Normal >=60 [facility] Comment on above: Order Comment: Shira feldman Type: BLOOD SPECIMENOrdering Facility: [facility] Address: [address] [place] [address] Result Comment: Luzmaria mated Glomerular Filtration Rate [...] actual GFR. Performed By: #### 2 4321-2 ####[facility]ORATORYCLIA [id number] [place] [address] [place] Glucose [Mass/Vol] 118 mg/dL High 74-99 [facility] Comment on above: Order Comment: Shira feldman Type: BLOOD SPECIMENOrdering Facility: [facility] Address: [address] [place] [address] Result Comment: The [place] [employer] (ADA) provides guidance for cutoff [...] Standards of Medical Care in Diabetes 2016, [place] [employer]. Diabetes Care. 2016.39(Suppl 1). Performed By: #### 2 4321-2 ####[facility] LABORATORYCLIA [id number] [place] [address] [place] Potassium [Moles/Vol] 3.7 mmol/L Normal 3.7-5.1 [facility] Comment on above: Order Comment: Speci men Type: BLOOD SPECIMENOrdering Facility: [facility] Address: [address] [place] [address] Performed By: #### 2 4321-2 ####[facility]ATORYCLIA [id number] [place] [address] [place] Sodium [Moles/Vol] 137 mmol/L Normal 136-144 [facility] Comment on above: Order Comment: Speci men Type: BLOOD SPECIMENOrdering Facility: [facility] Address: [address] [place] [address] Performed By: #### 2 4321-2 ####[facility]ATORYCLIA [id number] [place] [address] [place] Urea nitrogen [Mass/Vol] 23 mg/dL Normal 9-24 [facility] Comment on above: Order Comment: Speci men Type: BLOOD SPECIMENOrdering Facility: [facility] Address: [address] [place] [address] Performed By: #### 2 4321-2 ####[facility]ORATORYCLIA [id number] [place] [address] [place] Anion gap [Moles/Vol] 17 mmol/L Normal 9-18 [facility] Comment on above: Order Comment: Speci men Type: BLOOD SPECIMENOrdering Facility: [facility] Address: [address] [place] [address] Performed By: #### 1 9123-9, 2777-1, 27758-6 ####[facility]ATORYCLIA [id number] [place] [address] [place] Calcium [Mass/Vol] 7.7 mg/dL Low 8.5-10.2 [facility] Comment on above: Order Comment: Speci men Type: BLOOD SPECIMENOrdering Facility: [facility] Address: [address] [place] [address] Performed By: #### 1 9123-9, 27711-04, 22455-2 ####[facility]ATORYCLIA [id number] [place] [address] [place] Chloride [Moles/Vol] 86 mmol/L Low 97-105 [facility] Comment on above: Order Comment: Speci men Type: BLOOD SPECIMENOrdering Facility: [facility] Address: [address] [place] [address] Performed By: #### 1 9123-9, 27711-04, 58282-4 ####[facility]ATORYCLIA [id number] [address] [place] CO2 [Moles/Vol] 24 mmol/L Normal 22-30 [facility] Comment on above: Order Comment: Speci men Type: BLOOD SPECIMENOrdering Facility: [facility] Address: [address] [place] [address] Performed By: #### 1 9123-9, 27711-04, 18104-7 ####[facility]ORATORYCLIA [id number] [address] [place] Creatinine [Mass/Vol] 0.53 mg/dL Low 0.73-1.22 [facility] Comment on above: Order Comment: Speci men Type: BLOOD SPECIMENOrdering Facility: [facility] Address: [address] [place] [address] Performed By: #### 1 9123-9, 27711-04, 99211-8 ####[facility]ORATORYCLIA [id number] [address] ESTIMATED GLOMERULAR FILTRATION RATE 108 mL/min/1.73m??? Normal >=60 [facility] Comment on above: Order Comment: Speci men Type: BLOOD SPECIMENOrdering Facility: [facility] Address: [address] [place] [address] Result Comment: Luzmaria mated Glomerular Filtration Rate [...] GFR. Performed By: #### 1 9123-9, 2777-1, 24239-7 ####[facility]ATORYCLIA [id number] [place] [address] [place] Glucose [Mass/Vol] 455 mg/dL High 74-99 [facility] Comment on above: Order Comment: Shira feldman Type: BLOOD SPECIMENOrdering Facility: [facility] Address: [address] [place] [address] Result Comment: The [place] Diabetes Association (ADA) provides guidance for cutoff [...] Standards of Medical Care in Diabetes 2016, [place] [employer]. Diabetes Care. 2016.39(Suppl 1). Performed By: #### 1 9123-9, 2777-, 81587-9 ####[facility] LABORATORYIA [id number] [place] [address] [place] Potassium [Moles/Vol] 3.4 mmol/L Low 3.7-5.1 [facility] Comment on above: Order Comment: Shira feldman Type: BLOOD SPECIMENOrdering Facility: [facility] Address: [address] [id number] Performed By: #### 1 9123-9, 2777-, 47100-4 ####[facility]ORATORYCLIA [id number] [address] [place] Sodium [Moles/Vol] 127 mmol/L Low 136-144 [facility] Comment on above: Order Comment: Speci men Type: BLOOD SPECIMENOrdering Facility: [facility] Address: [address] [place] [address] Performed By: #### 1 9123-9, 2777-1, 29755-2 ####[facility]ORATORYCLIA [id number] [place] [address] [place] Urea nitrogen [Mass/Vol] 21 mg/dL Normal 9-24 [facility] Comment on above: Order Comment: Speci men Type: BLOOD SPECIMENOrdering Facility: [facility] Address: [address] [place] [address] Performed By: #### 1 9123-9, 2777-1, 24007-9 ####[facility]ORATORYCLIA [id number] [address] [place] CASE MANAGEMon 08-10-2021 CASE MANAGEM Normal [facility] CBC W Auto Differential pane l (Bld)on 08-10-2021 Basophils (Bld) [#/Vol] 0.04 10*3/uL Normal <0.11 [facility] Comment on above: Order Comment: Speci men Type: BLOOD SPECIMENOrdering Facility: [facility] Address: [address] [place] [address] Performed By: #### 5 7021-8 ####[facility]ORATORYCLIA [id number] [address] [place] Basophils/100 WBC (Bld) 0.4 % Normal [facility] Comment on above: Order Comment: Speci men Type: BLOOD SPECIMENOrdering Facility: [facility] Address: [address] [place] [address] Performed By: #### 5 7021-8 ####[facility]ORATORYCLIA [id number] [address] STATES [facility] Differential cell count method Nom (Bld) Auto Normal [facility] Comment on above: Order Comment: Speci men Type: BLOOD SPECIMENOrdering Facility: [facility] Address: [address] [place] [address] Performed By: #### 5 7021-8 ####[facility]ORATORYCLIA [id number] [address] Eosinophils (Bld) [#/Vol] 0.11 10*3/uL Normal <0.46 [facility] Comment on above: Order Comment: Speci men Type: BLOOD SPECIMENOrdering Facility: [facility] Address: [address] [place] [address] Performed By: #### 5 7021-8 ####[facility]ORATORYCLIA [id number] [address] Eosinophils/100 WBC (Bld) 1.1 % Normal [facility] Comment on above: Order Comment: Speci men Type: BLOOD SPECIMENOrdering Facility: [facility] Address: [address] [place] [address] Performed By: #### 5 7021-8 ####[facility]ORATORYCLIA [id number] [address] Erythrocyte distribution width (RBC) [Ratio] 17.2 % High 11.5-15.0 [facility] Comment on above: Order Comment: Speci men Type: BLOOD SPECIMENOrdering Facility: [facility] Address: [address] [place] [address] Performed By: #### 5 7021-8 ####[facility]ORATORYCLIA [id number] [address] Hematocrit (Bld) [Volume fraction] 25.5 % Low 39.0-51.0 [facility] Comment on above: Order Comment: Speci men Type: BLOOD SPECIMENOrdering Facility: [facility] Address: [address] [place] [address] Performed By: #### 5 7021-8 ####[facility]ORATORYCLIA [id number] [address] Hemoglobin (Bld) [Mass/Vol] 7.9 g/dL Low 13.0-17.0 [facility] Comment on above: Order Comment: Speci men Type: BLOOD SPECIMENOrdering Facility: [facility] Address: [address] [place] [address] Performed By: #### 5 7021-8 ####[facility] LABORATORYCLIA [id number] [address] IMMATURE GRAN % 0.4 % Normal [facility] Comment on above: Order Comment: Speci men Type: BLOOD SPECIMENOrdering Facility: [facility] Address: [address] [place] [address] Performed By: #### 5 7021-8 ####[facility]ATORYCLIA [id number] [address] IMMATURE GRAN ABS 0.04 k/uL Normal <0.10 [facility] Comment on above: Order Comment: Speci men Type: BLOOD SPECIMENOrdering Facility: [facility] Address: [address] [place] [address] Performed By: #### 5 7021-8 ####[facility]ATORYCLIA [id number] [address] Lymphocytes (Bld) [#/Vol] 1.66 10*3/uL Normal 1.00-4.00 [facility] Comment on above: Order Comment: Speci men Type: BLOOD SPECIMENOrdering Facility: [facility] Address: [address] [place] [address] Performed By: #### 5 7021-8 ####[facility]ATORYCLIA [id number] [address] Lymphocytes/100 WBC (Bld) 16.2 % Normal [facility] Comment on above: Order Comment: Speci men Type: BLOOD SPECIMENOrdering Facility: [facility] Address: [address] [place] [address] Performed By: #### 5 7021-8 ####[facility]ORATORYCLIA [id number] [address] MCH (RBC) [Entitic mass] 28.5 pg Normal 26.0-34.0 [facility] Comment on above: Order Comment: Speci men Type: BLOOD SPECIMENOrdering Facility: [facility] Address: [address] [place] [address] Performed By: #### 5 7021-8 ####[facility]ATORYCLIA [id number] [address] MCHC (RBC) [Mass/Vol] 31.0 g/dL Normal 30.5-36.0 [facility] Comment on above: Order Comment: Speci men Type: BLOOD SPECIMENOrdering Facility: [facility] Address: [address] [place] [address] Performed By: #### 5 7021-8 ####[facility]ATORYCLIA [id number] [address] MCV (RBC) [Entitic vol] 92.1 fL Normal 80.0-100.0 [facility] Comment on above: Order Comment: Speci men Type: BLOOD SPECIMENOrdering Facility: [facility] Address: [address] [place] [address] Performed By: #### 5 7021-8 ####[facility]ATORYCLIA [id number] [address] Monocytes (Bld) [#/Vol] 0.51 10*3/uL Normal <0.87 [facility] Comment on above: Order Comment: Speci men Type: BLOOD SPECIMENOrdering Facility: [facility] Address: [address] [place] [address] Performed By: #### 5 7021-8 ####[facility]ATORYCLIA [id number] [address] Monocytes/100 WBC (Bld) 5.0 % Normal [facility] Comment on above: Order Comment: Speci men Type: BLOOD SPECIMENOrdering Facility: [facility] Address: [address] [place] [address] Performed By: #### 5 7021-8 ####[facility]ORATORYCLIA [id number] [address] [place] Neutrophils (Bld) [#/Vol] 7.91 10*3/uL High 1.45-7.50 [facility] Comment on above: Order Comment: Speci men Type: BLOOD SPECIMENOrdering Facility: [facility] Address: [address] [place] [address] Performed By: #### 5 7021-8 ####[facility]ORATORYCLIA [id number] [address] [place] Neutrophils/100 WBC (Bld) 76.9 % Normal [facility] Comment on above: Order Comment: Speci men Type: BLOOD SPECIMENOrdering Facility: [facility] Address: [address] [place] [address] Performed By: #### 5 7021-8 ####[facility]ATORYCLIA [id number] [address] [place] Nucleated RBC (Bld) [#/Vol] 10*3/uL Normal <0.01 [facility] Comment on above: Order Comment: Speci men Type: BLOOD SPECIMENOrdering Facility: [facility] Address: [address] [place] [address] Performed By: #### 5 7021-8 ####[facility]ORATORYCLIA [id number] [address] [place] Nucleated RBC/100 WBC (Bld) [Ratio] 0.0 /100 WBC Normal [facility] Comment on above: Order Comment: Speci men Type: BLOOD SPECIMENOrdering Facility: [facility] Address: [address] [place] [address] Performed By: #### 5 7021-8 ####[facility]ORATORYCLIA [id number] [place] [address] [place] Platelet mean volume (Bld) [Entitic vol] 10.3 fL Normal 9.0-12.7 [facility] Comment on above: Order Comment: Speci men Type: BLOOD SPECIMENOrdering Facility: [facility] Address: [address] [place] [address] Performed By: #### 5 7021-8 ####[facility]ORATORYCLIA [id number] [address] [place] Platelets (Bld) [#/Vol] 152 10*3/uL Normal 150-400 [facility] Comment on above: Order Comment: Speci men Type: BLOOD SPECIMENOrdering Facility: [facility] Address: [address] [place] [address] Performed By: #### 5 7021-8 ####[facility]ORATORYCLIA [id number] [place] [address] [place] RBC (Bld) [#/Vol] 2.77 10*6/uL Low 4.20-6.00 [facility] Comment on above: Order Comment: Speci men Type: BLOOD SPECIMENOrdering Facility: [facility] Address: [address] [place] [address] Performed By: #### 5 7021-8 ####[facility]ATORYCLIA [id number] [address] [place] WBC (Bld) [#/Vol] 10.27 10*3/uL Normal 3.70-11.00 [facility] Comment on above: Order Comment: Speci men Type: BLOOD SPECIMENOrdering Facility: [facility] Address: [address] [place] [address] Performed By: #### 5 7021-8 ####[facility]ATORYCLIA [id number] [address] [place] Magnesium SerPl-mCncon 08-10 Magnesium [Mass/Vol] 1.8 mg/dL Normal 1.7-2.3 [facility] Comment on above: Order Comment: Speci men Type: BLOOD SPECIMENOrdering Facility: [facility] Address: [address] [place], [place] [address] [address] Performed By: #### 1 9123-9, 2777-1, 11905-8 ####[facility]ORATORYCLIA [id number] [address] OF [facility] NURSING PROGon 08-10-2021 NURSING PROG Normal [facility] NURSING PROG Normal [facility] NUTRITIONon 08-10-2021 NUTRITION Normal [facility] Phosphate SerPl-mCncon 08-10 Phosphate [Mass/Vol] 3.7 mg/dL Normal 2.7-4.8 [facility] Comment on above: Order Comment: Speci men Type: BLOOD SPECIMENOrdering Facility: [facility] Address: [address] [place] [address] Performed By: #### 1 9123-9, 2777-1, 92304-0 ####[facility]ATORYCLIA [id number] [address] [place] ALLIED HEALTHon 08-09-2021 ALLIED HEALTH Normal [facility] ANES POSTPROC EVALon 022 ANES POSTPROC EVAL Normal [facility] ANES PRE-OPon 08-09-2021 ANES PRE-OP Normal [facility] BRIEF OP NOTon 08-09-2021 BRIEF OP NOT Normal [facility] Basic metabolic 2000 panelon 08-09-2021 Anion gap [Moles/Vol] 8 mmol/L Low 9-18 [facility] Comment on above: Order Comment: Speci men Type: BLOOD SPECIMENOrdering Facility: [facility] Address: [address] [place] [address] Performed By: #### 2 4321-2, 93245-4, 2777-1 ####[facility]ATORYCLIA [id number] [address] [place] Calcium [Mass/Vol] 9.2 mg/dL Normal 8.5-10.2 [facility] Comment on above: Order Comment: Speci men Type: BLOOD SPECIMENOrdering Facility: [facility] Address: [address] [place] [id number] Performed By: #### 2 4321-2, , 2776-05 ####[facility]ORATORYCLIA [id number] [place] [address] [place] Chloride [Moles/Vol] 97 mmol/L Normal 97-105 [facility] Comment on above: Order Comment: Speci men Type: BLOOD SPECIMENOrdering Facility: [facility] Address: [address] [place] [address] Performed By: #### 2 4321-2, , 2776-05 ####[facility]ORATORYCLIA [id number] [address] OF [facility] CO2 [Moles/Vol] 30 mmol/L Normal 22-30 [facility] Comment on above: Order Comment: Speci men Type: BLOOD SPECIMENOrdering Facility: [facility] Address: [address] [place] [address] Performed By: #### 2 4321-2, , 2776-05 ####[facility]ATORYCLIA [id number] [address] STATES OF [facility] Creatinine [Mass/Vol] 0.51 mg/dL Low 0.73-1.22 [facility] Comment on above: Order Comment: Speci men Type: BLOOD SPECIMENOrdering Facility: [facility] Address: [address] [place] [address] Performed By: #### 2 4321-2, , 2776-05 ####[facility]ATORYCLIA [id number] [address] OF [facility] ESTIMATED GLOMERULAR FILTRATION RATE 110 mL/min/1.73m??? Normal >=60 [facility] Comment on above: Order Comment: Speci men Type: BLOOD SPECIMENOrdering Facility: [facility] Address: [address] [place] [address] Result Comment: Luzmaria mated Glomerular Filtration Rate [...] Performed By: #### 2 4321-2, , 2776-05 ####[facility]ORATORYCLIA [id number] [place] [address] [place] Glucose [Mass/Vol] 106 mg/dL High 74-99 [facility] Comment on above: Order Comment: Shira feldman Type: BLOOD SPECIMENOrdering Facility: [facility] Address: [address] [place] [address] Result Comment: The [place] [employer] (ADA) provides guidance for cutoff [...] Standards of Medical Care in Diabetes 2016, [place] [employer]. Diabetes Care. 2016.39(Suppl 1). Performed By: #### 2 4321-2, , 2776-05 ####[facility]ORATORYCLIA [id number] [place] [address] [place] Potassium [Moles/Vol] 4.1 mmol/L Normal 3.7-5.1 [facility] Comment on above: Order Comment: Shira feldman Type: BLOOD SPECIMENOrdering Facility: [facility] Address: [address] [place] [address] Performed By: #### 2 4321-2, , 2776-05 ####[facility]ORATORYCLIA [id number] [place] [address] [place] Sodium [Moles/Vol] 135 mmol/L Low 136-144 [facility] Comment on above: Order Comment: Speci men Type: BLOOD SPECIMENOrdering Facility: [facility] Address: [address] [place] [address] Performed By: #### 2 4321-2, , 2776-05 ####[facility]ORATORYCLIA [id number] [address] STATES [facility] Urea nitrogen [Mass/Vol] 26 mg/dL High 9-24 [facility] Comment on above: Order Comment: Speci men Type: BLOOD SPECIMENOrdering Facility: [facility] Address: [address] [place] [address] Performed By: #### 2 4321-2, , 2776-05 ####[facility]ORATORYCLIA [id number] [address] STATES OF [facility] CBC W Auto Differential pane l (Bld)on 08-09-2021 Basophils (Bld) [#/Vol] 0.06 10*3/uL Normal <0.11 [facility] Comment on above: Order Comment: Speci men Type: BLOOD SPECIMENOrdering Facility: [facility] Address: [address] [place] [address] Performed By: #### 5 7021-8 ####[facility]ORATORYCLIA [id number] [address] [place] Basophils/100 WBC (Bld) 0.5 % Normal [facility] Comment on above: Order Comment: Speci men Type: BLOOD SPECIMENOrdering Facility: [facility] Address: [address] [place] [address] Performed By: #### 5 7021-8 ####[facility]ATORYCLIA [id number] [address] Differential cell count method Nom (Bld) Auto Normal [facility] Comment on above: Order Comment: Speci men Type: BLOOD SPECIMENOrdering Facility: [facility] Address: [address] [place] [address] Performed By: #### 5 7021-8 ####[facility]ATORYCLIA [id number] [address] OF [facility] Eosinophils (Bld) [#/Vol] 0.42 10*3/uL Normal <0.46 [facility] Comment on above: Order Comment: Speci men Type: BLOOD SPECIMENOrdering Facility: [facility] Address: [address] [place] [address] Performed By: #### 5 7021-8 ####[facility]ATORYCLIA [id number] [address] Eosinophils/100 WBC (Bld) 3.8 % Normal [facility] Comment on above: Order Comment: Speci men Type: BLOOD SPECIMENOrdering Facility: [facility] Address: [address] [place] [address] Performed By: #### 5 7021-8 ####[facility]ORATORYCLIA [id number] [address] Erythrocyte distribution width (RBC) [Ratio] 17.6 % High 11.5-15.0 [facility] Comment on above: Order Comment: Speci men Type: BLOOD SPECIMENOrdering Facility: [facility] Address: [address] [place] [address] Performed By: #### 5 7021-8 ####[facility]ORATORYCLIA [id number] [address] Hematocrit (Bld) [Volume fraction] 29.3 % Low 39.0-51.0 [facility] Comment on above: Order Comment: Speci men Type: BLOOD SPECIMENOrdering Facility: [facility] Address: [address] [place] [address] Performed By: #### 5 7021-8 ####[facility]ORATORYCLIA [id number] [place] Hemoglobin (Bld) [Mass/Vol] 9.0 g/dL Low 13.0-17.0 [facility] Comment on above: Order Comment: Speci men Type: BLOOD SPECIMENOrdering Facility: [facility] Address: [address] [place] [address] Performed By: #### 5 7021-8 ####[facility] LABORATORYCLIA [id number] [address] IMMATURE GRAN % 0.5 % Normal [facility] Comment on above: Order Comment: Speci men Type: BLOOD SPECIMENOrdering Facility: ACCESS [facility] Address: [address] [place] [address] Performed By: #### 5 7021-8 ####[facility] LABORATORYCLIA [id number] [address] IMMATURE GRAN ABS 0.05 k/uL Normal <0.10 [facility] Comment on above: Order Comment: Speci men Type: BLOOD SPECIMENOrdering Facility: [facility] Address: [address] [place] [address] Performed By: #### 5 7021-8 ####[facility] LABORATORYCLIA [id number] [address] STATES [facility] Lymphocytes (Bld) [#/Vol] 2.00 10*3/uL Normal 1.00-4.00 [facility] Comment on above: Order Comment: Speci men Type: BLOOD SPECIMENOrdering Facility: [facility] Address: [address] [place] [address] Performed By: #### 5 7021-8 ####[facility] LABORATORYCLIA [id number] [address] Lymphocytes/100 WBC (Bld) 18.1 % Normal [facility] Comment on above: Order Comment: Speci men Type: BLOOD SPECIMENOrdering Facility: [facility] Address: [address] [place] [address] Performed By: #### 5 7021-8 ####[facility] LABORATORYCLIA [id number] [address] MCH (RBC) [Entitic mass] 28.1 pg Normal 26.0-34.0 [facility] Comment on above: Order Comment: Speci men Type: BLOOD SPECIMENOrdering Facility: [facility] Address: [address] [place] [address] Performed By: #### 5 7021-8 ####[facility] LABORATORYCLIA [id number] [address] STATES OF [facility] MCHC (RBC) [Mass/Vol] 30.7 g/dL Normal 30.5-36.0 [facility] Comment on above: Order Comment: Speci men Type: BLOOD SPECIMENOrdering Facility: [facility] Address: [address] [place] [address] Performed By: #### 5 7021-8 ####[facility] LABORATORYCLIA [id number] [address] [place] MCV (RBC) [Entitic vol] 91.6 fL Normal 80.0-100.0 [facility] Comment on above: Order Comment: Speci men Type: BLOOD SPECIMENOrdering Facility: [facility] Address: [address] [place] [address] Performed By: #### 5 7021-8 ####[facility] LABORATORYCLIA [id number] [address] [place] Monocytes (Bld) [#/Vol] 0.68 10*3/uL Normal <0.87 [facility] Comment on above: Order Comment: Speci men Type: BLOOD SPECIMENOrdering Facility: [facility] Address: [address] [place] [address] Performed By: #### 5 7021-8 ####[facility] LABORATORYCLIA [id number] [address] Monocytes/100 WBC (Bld) 6.2 % Normal [facility] Comment on above: Order Comment: Speci men Type: BLOOD SPECIMENOrdering Facility: [facility] Address: [address] [place] [address] Performed By: #### 5 7021-8 ####[facility] LABORATORYCLIA [id number] [place] [address] [place] Neutrophils (Bld) [#/Vol] 7.82 10*3/uL High 1.45-7.50 [facility] Comment on above: Order Comment: Speci men Type: BLOOD SPECIMENOrdering Facility: [facility] Address: [address] [place] [address] Performed By: #### 5 7021-8 ####[facility] LABORATORYCLIA [id number] [address] [place] Neutrophils/100 WBC (Bld) 70.9 % Normal [facility] Comment on above: Order Comment: Speci men Type: BLOOD SPECIMENOrdering Facility: [facility] Address: [address] [place] [address] Performed By: #### 5 7021-8 ####[facility] LABORATORYCLIA [id number] [address] [place] Nucleated RBC (Bld) [#/Vol] 10*3/uL Normal <0.01 [facility] Comment on above: Order Comment: Speci men Type: BLOOD SPECIMENOrdering Facility: [facility] Address: [address] [place] [address] Performed By: #### 5 7021-8 ####[facility] LABORATORYCLIA [id number] [address] [place] Nucleated RBC/100 WBC (Bld) [Ratio] 0.0 /100 WBC Normal [facility] Comment on above: Order Comment: Speci men Type: BLOOD SPECIMENOrdering Facility: [facility] Address: [address] [place] [address] Performed By: #### 5 7021-8 ####[facility] LABORATORYCLIA [id number] [address] [place] Platelet mean volume (Bld) [Entitic vol] 10.1 fL Normal 9.0-12.7 [facility] Comment on above: Order Comment: Speci men Type: BLOOD SPECIMENOrdering Facility: [facility] Address: [address] [place] [address] Performed By: #### 5 7021-8 ####[facility] LABORATORYCLIA [id number] [address] Platelets (Bld) [#/Vol] 160 10*3/uL Normal 150-400 [facility] Comment on above: Order Comment: Speci men Type: BLOOD SPECIMENOrdering Facility: [facility] Address: [address] [place] [address] Performed By: #### 5 7021-8 ####[facility] LABORATORYCLIA [id number] [address] RBC (Bld) [#/Vol] 3.20 10*6/uL Low 4.20-6.00 [facility] Comment on above: Order Comment: Speci men Type: BLOOD SPECIMENOrdering Facility: [facility] Address: [address] [place] [address] Performed By: #### 5 7021-8 ####[facility] LABORATORYCLIA [id number] [address] OF [facility] WBC (Bld) [#/Vol] 11.03 10*3/uL High 3.70-11.00 [facility] Comment on above: Order Comment: Speci men Type: BLOOD SPECIMENOrdering Facility: [facility] Address: [address] [place] [address] Performed By: #### 5 7021-8 ####[facility] LABORATORYCLIA [id number] [address] CONSULT PROGon 08-09-2021 CONSULT PROG Normal [facility] CT BRAIN WO IVCONon 08-10-19 CT BRAIN WO IVCON Normal [facility] CT BRAIN WO IVCON Normal [facility] Magnesium SerPl-mCncon 08-09 Magnesium [Mass/Vol] 2.0 mg/dL Normal 1.7-2.3 [facility] Comment on above: Order Comment: Speci men Type: BLOOD SPECIMENOrdering Facility: [facility] Address: [address] [place] [address] Performed By: #### 2 4321-2, 02437-1, 2777-1 ####[facility] LABORATORYCLIA [id number] [address] [place] NURSING PROGon 08-09-2021 NURSING PROG Normal [facility] OPERATIVE NOon 08-09-2021 OPERATIVE NO Normal [facility] PT panel Coag (PPP)on 2021 INR Coag (PPP) [Relative time] 1.1 {INR} Normal 0.9-1.3 [facility] Comment on above: Order Comment: hSira feldman Type: BLOOD SPECIMENOrdering Facility: [facility] Address: [address] [place] [address] Result Comment: Yris min K Antagonist (VKA) Therapeutic Range: INR 2 to 3 (Target INR of 2.5)Note: For patients treated with VKA drugs, such as warfarin, the [employer] 2012 Guideline recommends [...] 70: 252-289 Performed By: #### 3 4528-0, 04998-4 ####[facility] LABORATORYCLIA [id number] [address] [place] PT Coag (PPP) [Time] 11.7 s Normal 9.7-13.0 [facility] Comment on above: Order Comment: Speci men Type: BLOOD SPECIMENOrdering Facility: [facility] Address: [address] [place] [address] Performed By: #### 3 4528-0, 57672-0 ####[facility] LABORATORYCLIA [id number] [address] Phosphate SerPl-mCncon 08-09 Phosphate [Mass/Vol] 4.0 mg/dL Normal 2.7-4.8 [facility] Comment on above: Order Comment: Speci men Type: BLOOD SPECIMENOrdering Facility: [facility] Address: [address] [place] [address] Performed By: #### 2 4321-2, 01393-6, 2777-1 ####[facility] LABORATORYCLIA [id number] [address] THERAPY NTon 08-09-2021 THERAPY NT Normal [facility] THERAPY NT Normal [facility] TYPE AND SCREENon 08-09-2021 ABO O [facility] Comment on above: Order Comment: Speci men Type: BLOOD SPECIMENOrdering Facility: [facility] Address: [address] [place] [address] Performed By: #### T SCR ####[facility] BLOOD BANKCLIA [id number] [address] [place] HISTORICAL AB SCR STATUS Negative [facility] Comment on above: Order Comment: Speci men Type: BLOOD SPECIMENOrdering Facility: [facility] Address: [address] [place] [address] Performed By: #### T SCR ####[facility] BLOOD BANKCLIA [id number] [address] [place] Rh Nom (Bld) Positive Normal [facility] Comment on above: Order Comment: Speci men Type: BLOOD SPECIMENOrdering Facility: [facility] Address: [address] [place] [address] Performed By: #### T SCR ####[facility] BLOOD BANKCLIA [id number] [address] OF [facility] TYPE AND SCREEN EXPIRATION 08/12/2021 23:59 Normal [facility] Comment on above: Order Comment: Speci men Type: BLOOD SPECIMENOrdering Facility: [facility] Address: [address] [place] [address] Performed By: #### T SCR ####[facility] BLOOD BANKCLIA [id number] [address] OF [facility] XR ABD 2V SUPINE W UPR/DECUB /CTLon 08-09-2021 XR ABD 2V SUPINE W UPR/DECUB/CTL Normal [facility] XR CHEST 1V FRONTALon 2021 XR CHEST 1V FRONTAL Normal [facility] XR NECK SOFT TISSUE 2V AP/LA Ton 08-09-2021 XR NECK SOFT TISSUE 2V AP/LAT Normal [facility] XR SKULL 2V AP/LATon 022 XR SKULL 2V AP/LAT Normal [facility] aPTT PPPon 08-09-2021 aPTT Coag (PPP) [Time] 26.8 s Normal 23.0-32.4 [facility] Comment on above: Order Comment: Speci men Type: BLOOD SPECIMENOrdering Facility: [facility] Address: [address] [place] [address] Performed By: #### 3 4528-0, 38577-4 ####[facility] LABORATORYCLIA [id number] [address] OF [facility] CASE MANAGEMon 08-08-2021 CASE MANAGEM Normal [facility] CBC W Auto Differential pane l (Bld)on 08-08-2021 Basophils (Bld) [#/Vol] 0.05 10*3/uL Normal <0.11 [facility] Comment on above: Order Comment: Speci men Type: BLOOD SPECIMENOrdering Facility: [facility] Address: [address] [place] [address] Performed By: #### 5 7021-8 ####[facility] LABORATORYCLIA [id number] [address] Basophils/100 WBC (Bld) 0.5 % Normal [facility] Comment on above: Order Comment: Speci men Type: BLOOD SPECIMENOrdering Facility: [facility] Address: [address] [place] [address] Performed By: #### 5 7021-8 ####[facility] LABORATORYCLIA [id number] [address] Differential cell count method Nom (Bld) Auto Normal [facility] Comment on above: Order Comment: Speci men Type: BLOOD SPECIMENOrdering Facility: [facility] Address: [address] [place] [address] Performed By: #### 5 7021-8 ####[facility] LABORATORYCLIA [id number] [address] [place] Eosinophils (Bld) [#/Vol] 0.17 10*3/uL Normal <0.46 [facility] Comment on above: Order Comment: Speci men Type: BLOOD SPECIMENOrdering Facility: [facility] Address: [address] [place] [address] Performed By: #### 5 7021-8 ####[facility] LABORATORYCLIA [id number] [address] Eosinophils/100 WBC (Bld) 1.6 % Normal [facility] Comment on above: Order Comment: Speci men Type: BLOOD SPECIMENOrdering Facility: [facility] Address: [address] [place] [address] Performed By: #### 5 7021-8 ####[facility] LABORATORYCLIA [id number] [address] [place] Erythrocyte distribution width (RBC) [Ratio] 17.8 % High 11.5-15.0 [facility] Comment on above: Order Comment: Speci men Type: BLOOD SPECIMENOrdering Facility: [facility] Address: [address] [place] [address] Performed By: #### 5 7021-8 ####[facility] LABORATORYCLIA [id number] [address] Hematocrit (Bld) [Volume fraction] 29.6 % Low 39.0-51.0 [facility] Comment on above: Order Comment: Speci men Type: BLOOD SPECIMENOrdering Facility: [facility] Address: [address] [place] [address] Performed By: #### 5 7021-8 ####[facility] LABORATORYCLIA [id number] [address] Hemoglobin (Bld) [Mass/Vol] 9.0 g/dL Low 13.0-17.0 [facility] Comment on above: Order Comment: Speci men Type: BLOOD SPECIMENOrdering Facility: [facility] Address: [address] [place] [address] Performed By: #### 5 7021-8 ####[facility] LABORATORYCLIA [id number] [address] IMMATURE GRAN % 0.5 % Normal [facility] Comment on above: Order Comment: Speci men Type: BLOOD SPECIMENOrdering Facility: [facility] Address: [address] [place] [address] Performed By: #### 5 7021-8 ####[facility] LABORATORYCLIA [id number] [address] IMMATURE GRAN ABS 0.05 k/uL Normal <0.10 [facility] Comment on above: Order Comment: Speci men Type: BLOOD SPECIMENOrdering Facility: [facility] Address: [address] [place] [address] Performed By: #### 5 7021-8 ####[facility] LABORATORYCLIA [id number] [address] Lymphocytes (Bld) [#/Vol] 1.93 10*3/uL Normal 1.00-4.00 [facility] Comment on above: Order Comment: Speci men Type: BLOOD SPECIMENOrdering Facility: [facility] Address: [address] [place], [place] [address] Performed By: #### 5 7021-8 ####[facility] LABORATORYCLIA [id number] [address] Lymphocytes/100 WBC (Bld) 18.2 % Normal [facility] Comment on above: Order Comment: Speci men Type: BLOOD SPECIMENOrdering Facility: [facility] Address: [address] [place] [address] Performed By: #### 5 7021-8 ####[facility] LABORATORYCLIA [id number] [address] MCH (RBC) [Entitic mass] 28.1 pg Normal 26.0-34.0 [facility] Comment on above: Order Comment: Speci men Type: BLOOD SPECIMENOrdering Facility: [facility] Address: [address] [place] [address] Performed By: #### 5 7021-8 ####[facility] LABORATORYCLIA [id number] [address] MCHC (RBC) [Mass/Vol] 30.4 g/dL Low 30.5-36.0 [facility] Comment on above: Order Comment: Speci men Type: BLOOD SPECIMENOrdering Facility: [facility] Address: [address] [place] [address] Performed By: #### 5 7021-8 ####[facility] LABORATORYCLIA [id number] [address] MCV (RBC) [Entitic vol] 92.5 fL Normal 80.0-100.0 [facility] Comment on above: Order Comment: Speci men Type: BLOOD SPECIMENOrdering Facility: [facility] Address: [address] [place] [address] Performed By: #### 5 7021-8 ####[facility] LABORATORYCLIA [id number] [address] OF [facility] Monocytes (Bld) [#/Vol] 0.75 10*3/uL Normal <0.87 [facility] Comment on above: Order Comment: Speci men Type: BLOOD SPECIMENOrdering Facility: [facility] Address: [address] [place] [address] Performed By: #### 5 7021-8 ####[facility] LABORATORYCLIA [id number] [address] Monocytes/100 WBC (Bld) 7.1 % Normal [facility] Comment on above: Order Comment: Speci men Type: BLOOD SPECIMENOrdering Facility: [facility] Address: [address] [place] [address] Performed By: #### 5 7021-8 ####[facility] LABORATORYCLIA [id number] [address] [place] Neutrophils (Bld) [#/Vol] 7.65 10*3/uL High 1.45-7.50 [facility] Comment on above: Order Comment: Speci men Type: BLOOD SPECIMENOrdering Facility: [facility] Address: [address] [place] [address] Performed By: #### 5 7021-8 ####[facility] LABORATORYCLIA [id number] [address] Neutrophils/100 WBC (Bld) 72.1 % Normal [facility] Comment on above: Order Comment: Speci men Type: BLOOD SPECIMENOrdering Facility: [facility] Address: [address] [place] [address] Performed By: #### 5 7021-8 ####[facility] LABORATORYCLIA [id number] [address] [place] Nucleated RBC (Bld) [#/Vol] 10*3/uL Normal <0.01 [facility] Comment on above: Order Comment: Speci men Type: BLOOD SPECIMENOrdering Facility: [facility] Address: [address] [place] [address] Performed By: #### 5 7021-8 ####[facility] LABORATORYCLIA [id number] [address] OF [facility] Nucleated RBC/100 WBC (Bld) [Ratio] 0.0 /100 WBC Normal [facility] Comment on above: Order Comment: Speci men Type: BLOOD SPECIMENOrdering Facility: [facility] Address: [address] [place] [address] Performed By: #### 5 7021-8 ####[facility] LABORATORYCLIA [id number] [address] [place] Platelet mean volume (Bld) [Entitic vol] 9.8 fL Normal 9.0-12.7 [facility] Comment on above: Order Comment: Speci men Type: BLOOD SPECIMENOrdering Facility: [facility] Address: [address] [place] [address] Performed By: #### 5 7021-8 ####[facility] LABORATORYCLIA [id number] [address] STATES OF [facility] Platelets (Bld) [#/Vol] 175 10*3/uL Normal 150-400 [facility] Comment on above: Order Comment: Speci men Type: BLOOD SPECIMENOrdering Facility: [facility] Address: [address] [place] [address] Performed By: #### 5 7021-8 ####[facility] LABORATORYCLIA [id number] [address] [place] RBC (Bld) [#/Vol] 3.20 10*6/uL Low 4.20-6.00 [facility] Comment on above: Order Comment: Speci men Type: BLOOD SPECIMENOrdering Facility: [facility] Address: [address] [place] [address] Performed By: #### 5 7021-8 ####[facility] LABORATORYCLIA [id number] [address] [place] WBC (Bld) [#/Vol] 10.60 10*3/uL Normal 3.70-11.00 [facility] Comment on above: Order Comment: Speci men Type: BLOOD SPECIMENOrdering Facility: [facility] Address: [address] [address] Performed By: #### 5 7021-8 ####[facility] LABORATORYCLIA [id number] [place] [address] [place] [address] BRAIN WO IVCONon 08-09-19 CT BRAIN WO IVCON Normal [facility] NURSING PROGon 08-08-2021 NURSING PROG Normal [facility] Prealbumin [Mass/Vol]on Prealbumin Nephelometry [Mass/Vol] 29 mg/dL Normal - [facility] Comment on above: Order Comment: Speci men Type: BLOOD SPECIMENOrdering Facility: [facility] Address: [address] [place] [address] Performed By: #### 1 4338-8 ####[facility] LABORATORYCLIA [id number] [place] [address] [place] SARS-CoV-2 RNA Resp Ql MEGAN+p robeon 08-08-2021 SARS-CoV-2 (COVID-19) RNA MEGAN+probe Ql (Resp) COVID 19 RESULT: SARS-CoV-2 (Agent of COVID-19) Not Detected by RT-PCR or equivalent method. This test has been authorized by FDA under an Emergency Use Authorization (EUA). Normal [facility] Comment on above: Performed By: #### 9 4500-6 ####[facility] LABORATORYCLIA [id number] [place] [address] [place] ALLIED HEALTHon 08-07-2021 ALLIED HEALTH Normal [facility] Basic metabolic 2000 panelon 08-07-2021 Anion gap [Moles/Vol] 9 mmol/L Normal 9-18 [facility] Comment on above: Order Comment: Speci men Type: BLOOD SPECIMENOrdering Facility: [facility] Address: [address] [address] Performed By: #### 2 4321-2, 2777-1, 62036-5, HFP ####[facility] LABORATORYCLIA [id number] [place] [address] [place] Calcium [Mass/Vol] 9.4 mg/dL Normal 8.5-10.2 [facility] Comment on above: Order Comment: Speci men Type: BLOOD SPECIMENOrdering Facility: [facility] Address: [address] [place] [address] Performed By: #### 2 4321-2, 2776-, , HFP ####[facility] LABORATORYCLIA [id number] [place] [address] [place] Chloride [Moles/Vol] 98 mmol/L Normal 97-105 [facility] Comment on above: Order Comment: Speci men Type: BLOOD SPECIMENOrdering Facility: [facility] Address: [address] [place] [address] Performed By: #### 2 4321-2, 2776-05, , HFP ####[facility] LABORATORYCLIA [id number] [address] [place] CO2 [Moles/Vol] 29 mmol/L Normal 22-30 [facility] Comment on above: Order Comment: Speci men Type: BLOOD SPECIMENOrdering Facility: [facility] Address: [address] [place] [address] Performed By: #### 2 4321-2, 2776-05, , HFP ####[facility] LABORATORYCLIA [id number] [address] [place] Creatinine [Mass/Vol] 0.67 mg/dL Low 0.73-1.22 [facility] Comment on above: Order Comment: Speci men Type: BLOOD SPECIMENOrdering Facility: [facility] Address: [address] [place], [place] [address] Performed By: #### 2 4321-2, 2776-05, , HFP ####[facility] LABORATORYCLIA [id number] [address] [place] ESTIMATED GLOMERULAR FILTRATION RATE 101 mL/min/1.73m??? Normal >=60 [facility] Comment on above: Order Comment: Speci men Type: BLOOD SPECIMENOrdering Facility: [facility] Address: [address] [place] [address] Result Comment: Luzmaria mated Glomerular Filtration Rate [...] Performed By: #### 2 4321-2, 2777-, , [facility] ####[facility] [id number] [place] [id number] [place] Glucose [Mass/Vol] 117 mg/dL High 74-99 [facility] Comment on above: Order Comment: Shira feldman Type: BLOOD SPECIMENOrdering Facility: [facility] Address: [address] [id number] Result Comment: The [place] [employer] (ADA) provides guidance for cutoff [...] Standards of Medical Care in Diabetes 2016, [place] [employer]. Diabetes Care. 2016.39(Suppl 1). Performed By: #### 2 4321-2, 2777-, , [facility] ####[facility] [id number] [place] [address] [place] Potassium [Moles/Vol] 4.1 mmol/L Normal 3.7-5.1 [facility] Comment on above: Order Comment: Shira feldman Type: BLOOD SPECIMENOrdering Facility: [facility] Address: [address] [address] Performed By: #### 2 4321-2, 277-1, , HFP ####[facility] LABORATORYCLIA [id number] [address] [place] [facility] Sodium [Moles/Vol] 136 mmol/L Normal 136-144 [facility] Comment on above: Order Comment: Speci men Type: BLOOD SPECIMENOrdering Facility: [facility] Address: [address] [place] [address] Performed By: #### 2 4321-2, 2776-, , HFP ####[facility]ORATORYCLIA [id number] [address] [place] Urea nitrogen [Mass/Vol] 31 mg/dL High 9-24 [facility] Comment on above: Order Comment: Speci men Type: BLOOD SPECIMENOrdering Facility: [facility] Address: [address] [place] [address] Performed By: #### 2 4321-2, 2776-05, , HFP ####[facility]ORATORYCLIA [id number] [address] CBC W Auto Differential pane l (Bld)on 08-07-2021 Basophils (Bld) [#/Vol] 0.03 10*3/uL Normal <0.11 [facility] Comment on above: Order Comment: Speci men Type: BLOOD SPECIMENOrdering Facility: [facility] Address: [address] [place] [address] Performed By: #### 5 7021-8 ####[facility] [facility] LAB[facility]ATORYCLIA [id number] [address] [place] [facility] Basophils/100 WBC (Bld) 0.3 % Normal [facility] Comment on above: Order Comment: Speci men Type: BLOOD SPECIMENOrdering Facility: [facility] Address: [address] [place] [address] Performed By: #### 5 7021-8 ####[facility] LABORATORYCLIA [id number] [address] Differential cell count method Nom (Bld) Auto Normal [facility] Comment on above: Order Comment: Speci men Type: BLOOD SPECIMENOrdering Facility: [facility] Address: [address] [place] [address] Performed By: #### 5 7021-8 ####[facility] LABORATORYCLIA [id number] [address] [place] Eosinophils (Bld) [#/Vol] 0.16 10*3/uL Normal <0.46 [facility] Comment on above: Order Comment: Speci men Type: BLOOD SPECIMENOrdering Facility: [facility] Address: [address] [place] [address] Performed By: #### 5 7021-8 ####[facility] LABORATORYCLIA [id number] [address] Eosinophils/100 WBC (Bld) 1.6 % Normal [facility] Comment on above: Order Comment: Speci men Type: BLOOD SPECIMENOrdering Facility: [facility] Address: [address] [place] [address] Performed By: #### 5 7021-8 ####[facility] LABORATORYCLIA [id number] [address] Erythrocyte distribution width (RBC) [Ratio] 18.1 % High 11.5-15.0 [facility] Comment on above: Order Comment: Speci men Type: BLOOD SPECIMENOrdering Facility: [facility] Address: [address] [place] [address] Performed By: #### 5 7021-8 ####[facility] LABORATORYCLIA [id number] [address] Hematocrit (Bld) [Volume fraction] 30.6 % Low 39.0-51.0 [facility] Comment on above: Order Comment: Speci men Type: BLOOD SPECIMENOrdering Facility: [facility] Address: [address] [place] [address] Performed By: #### 5 7021-8 ####[facility] LABORATORYCLIA [id number] [address] STATES [facility] Hemoglobin (Bld) [Mass/Vol] 9.4 g/dL Low 13.0-17.0 [facility] Comment on above: Order Comment: Speci men Type: BLOOD SPECIMENOrdering Facility: [facility] Address: [address] [place] [address] Performed By: #### 5 7021-8 ####[facility] LABORATORYCLIA [id number] [address] IMMATURE GRAN % 0.4 % Normal [facility] Comment on above: Order Comment: Speci men Type: BLOOD SPECIMENOrdering Facility: [facility] Address: [address] [place] [address] Performed By: #### 5 7021-8 ####[facility] LABORATORYCLIA [id number] [address] IMMATURE GRAN ABS 0.04 k/uL Normal <0.10 [facility] Comment on above: Order Comment: Speci men Type: BLOOD SPECIMENOrdering Facility: [facility] Address: [address] [place] [address] Performed By: #### 5 7021-8 ####[facility] LABORATORYCLIA [id number] [address] [place] Lymphocytes (Bld) [#/Vol] 2.05 10*3/uL Normal 1.00-4.00 [facility] Comment on above: Order Comment: Speci men Type: BLOOD SPECIMENOrdering Facility: [facility] Address: [address] [place] [address] Performed By: #### 5 7021-8 ####[facility] LABORATORYCLIA [id number] [address] Lymphocytes/100 WBC (Bld) 20.2 % Normal [facility] Comment on above: Order Comment: Speci men Type: BLOOD SPECIMENOrdering Facility: [facility] Address: [address] [place] [address] Performed By: #### 5 7021-8 ####[facility] LABORATORYCLIA [id number] [address] MCH (RBC) [Entitic mass] 28.8 pg Normal 26.0-34.0 [facility] Comment on above: Order Comment: Speci men Type: BLOOD SPECIMENOrdering Facility: [facility] Address: [address] [place] [address] Performed By: #### 5 7021-8 ####[facility] LABORATORYCLIA [id number] [address] MCHC (RBC) [Mass/Vol] 30.7 g/dL Normal 30.5-36.0 [facility] Comment on above: Order Comment: Speci men Type: BLOOD SPECIMENOrdering Facility: [facility] Address: [address] [place] [address] Performed By: #### 5 7021-8 ####[facility] LABORATORYCLIA [id number] [address] MCV (RBC) [Entitic vol] 93.9 fL Normal 80.0-100.0 [facility] Comment on above: Order Comment: Speci men Type: BLOOD SPECIMENOrdering Facility: [facility] Address: [address] [place] [address] Performed By: #### 5 7021-8 ####[facility]ORATORYCLIA [id number] [address] Monocytes (Bld) [#/Vol] 0.64 10*3/uL Normal <0.87 [facility] Comment on above: Order Comment: Speci men Type: BLOOD SPECIMENOrdering Facility: [facility] Address: [address] [place] [address] Performed By: #### 5 7021-8 ####[facility] LABORATORYCLIA [id number] [place] [address] [place] Monocytes/100 WBC (Bld) 6.3 % Normal [facility] Comment on above: Order Comment: Speci men Type: BLOOD SPECIMENOrdering Facility: [facility] Address: [address] [address] Performed By: #### 5 7021-8 ####[facility] LABORATORYCLIA [id number] [place] [address] [place] Neutrophils (Bld) [#/Vol] 7.22 10*3/uL Normal 1.45-7.50 [facility] Comment on above: Order Comment: Speci men Type: BLOOD SPECIMENOrdering Facility: [facility] Address: [address] [place] [address] Performed By: #### 5 7021-8 ####[facility] LABORATORYCLIA [id number] [address] [place] Neutrophils/100 WBC (Bld) 71.2 % Normal [facility] Comment on above: Order Comment: Speci men Type: BLOOD SPECIMENOrdering Facility: [facility] Address: [address] [place] [address] Performed By: #### 5 7021-8 ####[facility] LABORATORYCLIA [id number] [address] [place] Nucleated RBC (Bld) [#/Vol] 10*3/uL Normal <0.01 [facility] Comment on above: Order Comment: Speci men Type: BLOOD SPECIMENOrdering Facility: [facility] Address: [address] [place] [address] Performed By: #### 5 7021-8 ####[facility] LABORATORYCLIA [id number] [address] [place] Nucleated RBC/100 WBC (Bld) [Ratio] 0.0 /100 WBC Normal [facility] Comment on above: Order Comment: Speci men Type: BLOOD SPECIMENOrdering Facility: [facility] Address: [address] [place] [address] Performed By: #### 5 7021-8 ####[facility] LABORATORYCLIA [id number] [address] [place] Platelet mean volume (Bld) [Entitic vol] 9.9 fL Normal 9.0-12.7 [facility] Comment on above: Order Comment: Speci men Type: BLOOD SPECIMENOrdering Facility: [facility] Address: [address] [place] [address] Performed By: #### 5 7021-8 ####[facility] LABORATORYCLIA [id number] [address] [place] Platelets (Bld) [#/Vol] 227 10*3/uL Normal 150-400 [facility] Comment on above: Order Comment: Speci men Type: BLOOD SPECIMENOrdering Facility: [facility] Address: [address] [place] [address] Performed By: #### 5 7021-8 ####[facility] LABORATORYCLIA [id number] [address] STATES OF [facility] RBC (Bld) [#/Vol] 3.26 10*6/uL Low 4.20-6.00 [facility] Comment on above: Order Comment: Speci men Type: BLOOD SPECIMENOrdering Facility: [facility] Address: [address] [place] [address] Performed By: #### 5 7021-8 ####[facility] LABORATORYCLIA [id number] [address] [place] WBC (Bld) [#/Vol] 10.14 10*3/uL Normal 3.70-11.00 [facility] Comment on above: Order Comment: Speci men Type: BLOOD SPECIMENOrdering Facility: [facility] Address: [address] [place] [address] Performed By: #### 5 7021-8 ####[facility] LABORATORYCLIA [id number] [address] [place] BRAIN WO IVCONon 08-08-19 CT BRAIN WO IVCON Normal [facility] HEPATIC FUNCTION PNLon 08-07 Albumin [Mass/Vol] 3.6 g/dL Low 3.9-4.9 [facility] Comment on above: Order Comment: Speci men Type: BLOOD SPECIMENOrdering Facility: [facility] Address: [address] [place] [address] Performed By: #### 2 4321-2, 2777-1, , HFP ####[facility] LABORATORYCLIA [id number] [address] STATES OF [facility] ALP [Catalytic activity/Vol] 124 U/L High 38-113 [facility] Comment on above: Order Comment: Speci men Type: BLOOD SPECIMENOrdering Facility: [facility] Address: [address] [place] [address] Performed By: #### 2 4321-2, 2776-, , HFP ####[facility] LABORATORYCLIA [id number] [address] STATES OF [facility] ALT With P-5'-P [Catalytic activity/Vol] 29 U/L Normal 10-54 [facility] Comment on above: Order Comment: Speci men Type: BLOOD SPECIMENOrdering Facility: [facility] Address: [address] [place] [address] Performed By: #### 2 4321-2, 2776-05, , HFP ####[facility]ORATORYCLIA [id number] [address] STATES OF [facility] AST With P-5'-P [Catalytic activity/Vol] 18 U/L Normal 14-40 [facility] Comment on above: Order Comment: Speci men Type: BLOOD SPECIMENOrdering Facility: [facility] Address: [address] [place], [place] [address] Performed By: #### 2 4321-2, 2776-1, , HFP ####[facility] LABORATORYCLIA [id number] [place], [place] [address] [place] [address] [place] Bilirubin [Mass/Vol] 0.3 mg/dL Normal 0.2-1.3 [facility] Comment on above: Order Comment: Speci men Type: BLOOD SPECIMENOrdering Facility: [facility] Address: [address] [place], [place] [address] Performed By: #### 2 4321-2, 2776-05, , [facility] ####[facility]ORATORYCLIA [id number] [address] STATES OF [facility] Bilirubin.conjugated [Mass/Vol] mg/dL Normal <0.2 [facility] Comment on above: Order Comment: Speci men Type: BLOOD SPECIMENOrdering Facility: [facility] Address: [address] [place], [place] [address] Performed By: #### 2 4321-2, 2776-05, , HFP ####[facility] LABORATORYCLIA [id number] [address] STATES OF [facility] Protein [Mass/Vol] 6.4 g/dL Normal 6.3-8.0 [facility] Comment on above: Order Comment: Speci men Type: BLOOD SPECIMENOrdering Facility: [facility] Address: [address] [place], [place] [address] Performed By: #### 2 4321-2, 2776-05, , HFP ####[facility]ORATORYCLIA [id number] [address] [place] Magnesium SerPl-mCncon 08-07 Magnesium [Mass/Vol] 2.3 mg/dL Normal 1.7-2.3 [facility] Comment on above: Order Comment: Speci men Type: BLOOD SPECIMENOrdering Facility: [facility] Address: [address] [place], [place] [address] Performed By: #### 2 4321-2, 2776-05, , HFP ####[facility]ORATORYCLIA [id number] [place] [address] [place] NURSING PROGon 08-07-2021 NURSING PROG Normal [facility] Phosphate SerPl-mCncon 08-07 Phosphate [Mass/Vol] 3.5 mg/dL Normal 2.7-4.8 [facility] Comment on above: Order Comment: Speci men Type: BLOOD SPECIMENOrdering Facility: [facility] Address: [address] [place] [address] Performed By: #### 2 4321-2, 2777-1, , HFP ####[facility]ORATORYCLIA [id number] [place] [address] [place] ANES POSTPROC EVALon 022 ANES POSTPROC EVAL Normal [facility] Basic metabolic 2000 panelon 08-06-2021 Anion gap [Moles/Vol] 11 mmol/L Normal 9-18 [facility] Comment on above: Order Comment: Speci men Type: BLOOD SPECIMENOrdering Facility: [facility] Address: [address] [place] [address] Performed By: #### 2 4321-2, 2776-05, ####[facility]ORATORYCLIA [id number] [place] [address] [place] Calcium [Mass/Vol] 8.2 mg/dL Low 8.5-10.2 [facility] Comment on above: Order Comment: Speci men Type: BLOOD SPECIMENOrdering Facility: [facility] Address: [address] [place] [address] Performed By: #### 2 4321-2, 2776-05, ####[facility] LABORATORYCLIA [id number] [place] [address] [place] Chloride [Moles/Vol] 100 mmol/L Normal 97-105 [facility] Comment on above: Order Comment: Speci men Type: BLOOD SPECIMENOrdering Facility: [facility] Address: [address] [place] [address] Performed By: #### 2 4321-2, 27711-04, ####[facility]ORATORYCLIA [id number] [place] [address] [place] CO2 [Moles/Vol] 23 mmol/L Normal 22-30 [facility] Comment on above: Order Comment: Speci men Type: BLOOD SPECIMENOrdering Facility: [facility] Address: [address] [place] [address] Performed By: #### 2 4321-2, 277-, ####[facility] LABORATORYCLIA [id number] [place] [address] [place] Creatinine [Mass/Vol] 0.55 mg/dL Low 0.73-1.22 [facility] Comment on above: Order Comment: Speci men Type: BLOOD SPECIMENOrdering Facility: [facility] Address: [address] [place] [address] Performed By: #### 2 4321-2, 2776-05, ####[facility]PITALCLIA [id number] [address] OF [facility] ESTIMATED GLOMERULAR FILTRATION RATE 107 mL/min/1.73m??? Normal >=60 [facility] Comment on above: Order Comment: Speci men Type: BLOOD SPECIMENOrdering Facility: [facility] Address: [address] [place] [address] Result Comment: Luzmaria mated Glomerular Filtration Rate [...] GFR. Performed By: #### 2 4321-2, 2776-05, ####[facility] LABORATORYCLIA [id number] [place] [id number] [place] Glucose [Mass/Vol] 275 mg/dL High 74-99 [facility] Comment on above: Order Comment: Speci men Type: BLOOD SPECIMENOrdering Facility: [facility] Address: [address] [place] [address] Result Comment: The [place] [employer] (ADA) provides guidance for cutoff [...] Standards of Medical Care in Diabetes 2016, [place] [employer]. Diabetes Care. 2016.39(Suppl 1). Performed By: #### 2 4321-2, 2776-05, ####[facility]ORATORYCLIA [id number] [place] [address] [place] Potassium [Moles/Vol] 3.6 mmol/L Low 3.7-5.1 [facility] Comment on above: Order Comment: Speci francia Type: BLOOD SPECIMENOrdering Facility: [facility] Address: [address] Performed By: #### 2 4321-2, 2776-05, ####[facility] LABORATORYCLIA [id number] [place] [address] [place] Sodium [Moles/Vol] 134 mmol/L Low 136-144 [facility] Comment on above: Order Comment: Johni francia Type: BLOOD SPECIMENOrdering Facility: [facility] Address: [address] Performed By: #### 2 4321-2, 2776-05, ####[facility] LABORATORYCLIA [id number] [place] [address] [place] Urea nitrogen [Mass/Vol] 29 mg/dL High 9-24 [facility] Comment on above: Order Comment: Johni men Type: BLOOD SPECIMENOrdering Facility: [facility] Address: [address] Performed By: #### 2 4321-2, 27711-04, 93228-7 ####[facility]ORATORYCLIA [id number] [place] [address] [place] CBC W Auto Differential pane l (Bld)on 08-06-2021 Basophils (Bld) [#/Vol] 0.03 10*3/uL Normal <0.11 [facility] Comment on above: Order Comment: Speci men Type: BLOOD SPECIMENOrdering Facility: [facility] Address: [address] [place] [address] Performed By: #### 5 7021-8 ####[facility] LABORATORYCLIA [id number] [address] STATES [facility] Basophils/100 WBC (Bld) 0.3 % Normal [facility] Comment on above: Order Comment: Speci men Type: BLOOD SPECIMENOrdering Facility: [facility] Address: [address] [place] [address] Performed By: #### 5 7021-8 ####[facility] LABORATORYCLIA [id number] [address] STATES [facility] Differential cell count method Nom (Bld) Auto Normal [facility] Comment on above: Order Comment: Speci men Type: BLOOD SPECIMENOrdering Facility: [facility] Address: [address] [place] [address] Performed By: #### 5 7021-8 ####[facility] LABORATORYCLIA [id number] [place] [address] [place] Eosinophils (Bld) [#/Vol] 0.18 10*3/uL Normal <0.46 [facility] Comment on above: Order Comment: Speci men Type: BLOOD SPECIMENOrdering Facility: [facility] Address: [address] [place] [address] Performed By: #### 5 7021-8 ####[facility]ORATORYCLIA [id number] [address] Eosinophils/100 WBC (Bld) 1.6 % Normal [facility] Comment on above: Order Comment: Speci men Type: BLOOD SPECIMENOrdering Facility: [facility] Address: [address] [place] [address] Performed By: #### 5 7021-8 ####[facility] LABORATORYCLIA [id number] [address] Erythrocyte distribution width (RBC) [Ratio] 17.9 % High 11.5-15.0 [facility] Comment on above: Order Comment: Speci men Type: BLOOD SPECIMENOrdering Facility: [facility] Address: [address] [place] [address] Performed By: #### 5 7021-8 ####[facility]ORATORYCLIA [id number] [address] Hematocrit (Bld) [Volume fraction] 27.6 % Low 39.0-51.0 [facility] Comment on above: Order Comment: Speci men Type: BLOOD SPECIMENOrdering Facility: [facility] Address: [address] [place] [address] Performed By: #### 5 7021-8 ####[facility]ORATORYCLIA [id number] [address] Hemoglobin (Bld) [Mass/Vol] 8.5 g/dL Low 13.0-17.0 [facility] Comment on above: Order Comment: Speci men Type: BLOOD SPECIMENOrdering Facility: [facility] Address: [address] [place] [address] Performed By: #### 5 7021-8 ####[facility] LABORATORYCLIA [id number] [address] IMMATURE GRAN % 0.6 % Normal [facility] Comment on above: Order Comment: Speci men Type: BLOOD SPECIMENOrdering Facility: [facility] Address: [address] [place] [address] Performed By: #### 5 7021-8 ####[facility]ORATORYCLIA [id number] [address] IMMATURE GRAN ABS 0.07 k/uL Normal <0.10 [facility] Comment on above: Order Comment: Speci men Type: BLOOD SPECIMENOrdering Facility: [facility] Address: [address] [place] [address] Performed By: #### 5 7021-8 ####[facility]ORATORYCLIA [id number] [address] OF [facility] Lymphocytes (Bld) [#/Vol] 1.81 10*3/uL Normal 1.00-4.00 [facility] Comment on above: Order Comment: Speci men Type: BLOOD SPECIMENOrdering Facility: [facility] Address: [address] [place] [address] Performed By: #### 5 7021-8 ####[facility]ORATORYCLIA [id number] [address] Lymphocytes/100 WBC (Bld) 15.7 % Normal [facility] Comment on above: Order Comment: Speci men Type: BLOOD SPECIMENOrdering Facility: [facility] Address: [address] [place] [address] Performed By: #### 5 7021-8 ####[facility] LABORATORYCLIA [id number] [address] MCH (RBC) [Entitic mass] 28.6 pg Normal 26.0-34.0 [facility] Comment on above: Order Comment: Speci men Type: BLOOD SPECIMENOrdering Facility: [facility] Address: [address] [place] [address] Performed By: #### 5 7021-8 ####[facility] LABORATORYCLIA [id number] [address] STATES OF [facility] MCHC (RBC) [Mass/Vol] 30.8 g/dL Normal 30.5-36.0 [facility] Comment on above: Order Comment: Speci men Type: BLOOD SPECIMENOrdering Facility: [facility] Address: [address] [place] [address] Performed By: #### 5 7021-8 ####[facility] LABORATORYCLIA [id number] [place] [address] [place] MCV (RBC) [Entitic vol] 92.9 fL Normal 80.0-100.0 [facility] Comment on above: Order Comment: Speci men Type: BLOOD SPECIMENOrdering Facility: [facility] Address: [address] [place] [address] Performed By: #### 5 7021-8 ####[facility] LABORATORYCLIA [id number] [address] [place] Monocytes (Bld) [#/Vol] 0.63 10*3/uL Normal <0.87 [facility] Comment on above: Order Comment: Speci men Type: BLOOD SPECIMENOrdering Facility: [facility] Address: [address] [place] [address] Performed By: #### 5 7021-8 ####[facility]ORATORYCLIA [id number] [address] Monocytes/100 WBC (Bld) 5.5 % Normal [facility] Comment on above: Order Comment: Speci men Type: BLOOD SPECIMENOrdering Facility: [facility] Address: [address] [place] [address] Performed By: #### 5 7021-8 ####[facility]ORATORYCLIA [id number] [address] [place] Neutrophils (Bld) [#/Vol] 8.78 10*3/uL High 1.45-7.50 [facility] Comment on above: Order Comment: Speci men Type: BLOOD SPECIMENOrdering Facility: [facility] Address: [address] [place] [address] Performed By: #### 5 7021-8 ####[facility] LABORATORYCLIA [id number] [address] [place] Neutrophils/100 WBC (Bld) 76.3 % Normal [facility] Comment on above: Order Comment: Speci men Type: BLOOD SPECIMENOrdering Facility: [facility] Address: [address] [place] [address] Performed By: #### 5 7021-8 ####[facility] LABORATORYCLIA [id number] [address] Nucleated RBC (Bld) [#/Vol] 10*3/uL Normal <0.01 [facility] Comment on above: Order Comment: Speci men Type: BLOOD SPECIMENOrdering Facility: [facility] Address: [address] [place] [address] Performed By: #### 5 7021-8 ####[facility]ORATORYCLIA [id number] [address] Nucleated RBC/100 WBC (Bld) [Ratio] 0.0 /100 WBC Normal [facility] Comment on above: Order Comment: Speci men Type: BLOOD SPECIMENOrdering Facility: [facility] Address: [address] [place] [address] Performed By: #### 5 7021-8 ####[facility] LABORATORYCLIA [id number] [address] [place] Platelet mean volume (Bld) [Entitic vol] 9.9 fL Normal 9.0-12.7 [facility] Comment on above: Order Comment: Speci men Type: BLOOD SPECIMENOrdering Facility: [facility] Address: [address] [place] [address] Performed By: #### 5 7021-8 ####[facility] LABORATORYCLIA [id number] [address] [place] Platelets (Bld) [#/Vol] 230 10*3/uL Normal 150-400 [facility] Comment on above: Order Comment: Speci men Type: BLOOD SPECIMENOrdering Facility: [facility] Address: [address] [place] [address] Performed By: #### 5 7021-8 ####[facility] LABORATORYCLIA [id number] [address] [place] RBC (Bld) [#/Vol] 2.97 10*6/uL Low 4.20-6.00 [facility] Comment on above: Order Comment: Speci men Type: BLOOD SPECIMENOrdering Facility: ACCESS [facility] Address: [address] [place] [address] Performed By: #### 5 7021-8 ####[facility] LABORATORYCLIA [id number] [address] STATES [place] [facility] WBC (Bld) [#/Vol] 11.50 10*3/uL High 3.70-11.00 [facility] Comment on above: Order Comment: Speci men Type: BLOOD SPECIMENOrdering Facility: [facility] Address: [address] [place] [address] Performed By: #### 5 7021-8 ####[facility]ATORYCLIA [id number] [address] CONSULT PROGon 08-06-2021 CONSULT PROG Normal [facility] Magnesium SerPl-mCncon 08-06 Magnesium [Mass/Vol] 1.9 mg/dL Normal 1.7-2.3 [facility] Comment on above: Order Comment: Speci men Type: BLOOD SPECIMENOrdering Facility: [facility] Address: [address] [place] [address] Performed By: #### 2 4321-2, 2777-1, 98062-7 ####[facility]ATORYCLIA [id number] [address] NURSING PROGon 08-06-2021 NURSING PROG Normal [facility] OPERATIVE NOon 08-06-2021 OPERATIVE NO Normal [facility] Phosphate SerPl-mCncon 08-06 Phosphate [Mass/Vol] 4.2 mg/dL Normal 2.7-4.8 [facility] Comment on above: Order Comment: Speci men Type: BLOOD SPECIMENOrdering Facility: [facility] Address: [address] [place] [address] Performed By: #### 2 4321-2, 2777-1, 42755-5 ####[facility]ORATORYCLIA [id number] [place] [address] [place] ALLIED HEALTHon 08-05-2021 ALLIED HEALTH Normal [facility] ALLIED HEALTH Normal [facility] ANES PRE-OPon 08-05-2021 ANES PRE-OP Normal [facility] BRIEF OP NOTon 08-05-2021 BRIEF OP NOT Normal [facility] Bacteria Spec Resp Culton Bacteria identified Respiratory culture Nom (Unsp spec) CULTURE, RESPIRATORY: Few Normal respiratory chris present ORGANISM ID: 1 Few Proteus species Insignificant colony count. No further workup. GRAM STAIN: No organisms seen Few Polymorphonuclear leukocytes Few Epithelial cells Abnormal [facility] Comment on above: Performed By: #### 3 2355-0 ####[facility]ATORYCLIA [id number] [place] [address] [place] Bacteria Ur Culton Bacteria identified Cx Nom (U) CULTURE, URINE: No growth (<1,000 CFU/ml) Normal [facility] Comment on above: Performed By: #### 6 30-4 ####[facility]ATORYCLIA [id number] [place] [address] [place] Basic metabolic 2000 panelon 08-05-2021 Anion gap [Moles/Vol] 7 mmol/L Low 9-18 [facility] Comment on above: Order Comment: Speci men Type: BLOOD SPECIMENOrdering Facility: [facility] Address: [address] [place] [address] Performed By: #### 2 4321-2 ####[facility]ATORYCLIA [id number] [place] [address] [place] Calcium [Mass/Vol] 9.5 mg/dL Normal 8.5-10.2 [facility] Comment on above: Order Comment: Speci men Type: BLOOD SPECIMENOrdering Facility: [facility] Address: [address] [place] [address] Performed By: #### 2 4321-2 ####[facility]ATORYCLIA [id number] [address] Chloride [Moles/Vol] 97 mmol/L Normal 97-105 [facility] Comment on above: Order Comment: Speci men Type: BLOOD SPECIMENOrdering Facility: [facility] Address: [address] [place] [address] Performed By: #### 2 4321-2 ####[facility]ORATORYCLIA [id number] [address] OF [facility] CO2 [Moles/Vol] 30 mmol/L Normal 22-30 [facility] Comment on above: Order Comment: Speci men Type: BLOOD SPECIMENOrdering Facility: [facility] Address: [address] [place] [address] Performed By: #### 2 4321-2 ####[facility]ATORYCLIA [id number] [address] Creatinine [Mass/Vol] 0.61 mg/dL Low 0.73-1.22 [facility] Comment on above: Order Comment: Speci men Type: BLOOD SPECIMENOrdering Facility: [facility] Address: [address] [place] [address] Performed By: #### 2 4321-2 ####[facility]ORATORYCLIA [id number] [address] ESTIMATED GLOMERULAR FILTRATION RATE 104 mL/min/1.73m??? Normal >=60 [facility] Comment on above: Order Comment: Speci men Type: BLOOD SPECIMENOrdering Facility: [facility] Address: [address] [place] [address] Result Comment: Luzmaria mated Glomerular Filtration Rate [...] actual GFR. Performed By: #### 2 4321-2 ####[facility]ORATORYCLIA [id number] [place] [address] [place] Glucose [Mass/Vol] 124 mg/dL High 74-99 [facility] Comment on above: Order Comment: Shira feldman Type: BLOOD SPECIMENOrdering Facility: [facility] Address: [address] [place] [address] Result Comment: The [place] [employer] (ADA) provides guidance for cutoff [...] Standards of Medical Care in Diabetes 2016, [place] [employer]. Diabetes Care. 2016.39(Suppl 1). Performed By: #### 2 4321-2 ####[facility]ATORYCLIA [id number] [place] [address] [place] Potassium [Moles/Vol] 4.9 mmol/L Normal 3.7-5.1 [facility] Comment on above: Order Comment: Shira feldman Type: BLOOD SPECIMENOrdering Facility: [facility] Address: [address] [place] [address] Performed By: #### 2 4321-2 ####[facility]ORATORYCLIA [id number] [place] [address] [place] Sodium [Moles/Vol] 134 mmol/L Low 136-144 [facility] Comment on above: Order Comment: Shira feldman Type: BLOOD SPECIMENOrdering Facility: [facility] Address: [address] [place] [address] Performed By: #### 2 4321-2 ####[facility]ORATORYCLIA [id number] [place] [address] [place] Urea nitrogen [Mass/Vol] 40 mg/dL High 9-24 [facility] Comment on above: Order Comment: Speci men Type: BLOOD SPECIMENOrdering Facility: [facility] Address: [address] [place] [address] Performed By: #### 2 4321-2 ####[facility]ATORYCLIA [id number] [place] [address] [place] CBC W Auto Differential pane l (Bld)on 08-05-2021 Basophils (Bld) [#/Vol] 0.04 10*3/uL Normal <0.11 [facility] Comment on above: Order Comment: Speci men Type: BLOOD SPECIMENOrdering Facility: [facility] Address: [address] [place] [address] Performed By: #### 5 7021-8 ####[facility]ATORYCLIA [id number] [address] [place] Basophils/100 WBC (Bld) 0.3 % Normal [facility] Comment on above: Order Comment: Speci men Type: BLOOD SPECIMENOrdering Facility: [facility] Address: [address] [place] [address] Performed By: #### 5 7021-8 ####[facility]ATORYCLIA [id number] [address] [place] Differential cell count method Nom (Bld) Auto Normal [facility] Comment on above: Order Comment: Speci men Type: BLOOD SPECIMENOrdering Facility: [facility] Address: [address] [place] [address] Performed By: #### 5 7021-8 ####[facility]ATORYCLIA [id number] [place] [address] [place] Eosinophils (Bld) [#/Vol] 0.42 10*3/uL Normal <0.46 [facility] Comment on above: Order Comment: Speci men Type: BLOOD SPECIMENOrdering Facility: [facility] Address: [address] [place] [address] Performed By: #### 5 7021-8 ####[facility]ORATORYCLIA [id number] [address] [place] Eosinophils/100 WBC (Bld) 3.6 % Normal [facility] Comment on above: Order Comment: Speci men Type: BLOOD SPECIMENOrdering Facility: [facility] Address: [address] [place] [address] Performed By: #### 5 7021-8 ####[facility]ATORYCLIA [id number] [address] Erythrocyte distribution width (RBC) [Ratio] 17.9 % High 11.5-15.0 [facility] Comment on above: Order Comment: Speci men Type: BLOOD SPECIMENOrdering Facility: [facility] Address: [address] [place] [address] Performed By: #### 5 7021-8 ####[facility]ORATORYCLIA [id number] [address] Hematocrit (Bld) [Volume fraction] 30.8 % Low 39.0-51.0 [facility] Comment on above: Order Comment: Speci men Type: BLOOD SPECIMENOrdering Facility: [facility] Address: [address] [place] [address] Performed By: #### 5 7021-8 ####[facility]ATORYCLIA [id number] [address] [place] Hemoglobin (Bld) [Mass/Vol] 9.6 g/dL Low 13.0-17.0 [facility] Comment on above: Order Comment: Speci men Type: BLOOD SPECIMENOrdering Facility: [facility] Address: [address] [place] [address] Performed By: #### 5 7021-8 ####[facility]ATORYCLIA [id number] [address] [place] IMMATURE GRAN % 0.5 % Normal [facility] Comment on above: Order Comment: Speci men Type: BLOOD SPECIMENOrdering Facility: [facility] Address: [address] [address] Performed By: #### 5 7021-8 ####[facility]ATORYCLIA [id number] [address] IMMATURE GRAN ABS 0.06 k/uL Normal <0.10 [facility] Comment on above: Order Comment: Speci men Type: BLOOD SPECIMENOrdering Facility: [facility] Address: [address] [place] [address] Performed By: #### 5 7021-8 ####[facility]ATORYCLIA [id number] [address] Lymphocytes (Bld) [#/Vol] 2.17 10*3/uL Normal 1.00-4.00 [facility] Comment on above: Order Comment: Speci men Type: BLOOD SPECIMENOrdering Facility: [facility] Address: [address] [place] [address] Performed By: #### 5 7021-8 ####[facility]ATORYCLIA [id number] [address] Lymphocytes/100 WBC (Bld) 18.7 % Normal [facility] Comment on above: Order Comment: Speci men Type: BLOOD SPECIMENOrdering Facility: [facility] Address: [address] [place] [address] Performed By: #### 5 7021-8 ####[facility]ORATORYCLIA [id number] [address] MCH (RBC) [Entitic mass] 28.9 pg Normal 26.0-34.0 [facility] Comment on above: Order Comment: Speci men Type: BLOOD SPECIMENOrdering Facility: [facility] Address: [address] [place] [address] Performed By: #### 5 7021-8 ####[facility]ORATORYCLIA [id number] [address] [place] MCHC (RBC) [Mass/Vol] 31.2 g/dL Normal 30.5-36.0 [facility] Comment on above: Order Comment: Speci men Type: BLOOD SPECIMENOrdering Facility: [facility] Address: [address] [place] [address] Performed By: #### 5 7021-8 ####[facility]ATORYCLIA [id number] [address] [place] MCV (RBC) [Entitic vol] 92.8 fL Normal 80.0-100.0 [facility] Comment on above: Order Comment: Speci men Type: BLOOD SPECIMENOrdering Facility: [facility] Address: [address] [place] [address] Performed By: #### 5 7021-8 ####[facility]ATORYCLIA [id number] [address] [place] Monocytes (Bld) [#/Vol] 0.71 10*3/uL Normal <0.87 [facility] Comment on above: Order Comment: Speci men Type: BLOOD SPECIMENOrdering Facility: [facility] Address: [address] [place] [address] Performed By: #### 5 7021-8 ####[facility]ATORYCLIA [id number] [address] Monocytes/100 WBC (Bld) 6.1 % Normal [facility] Comment on above: Order Comment: Speci men Type: BLOOD SPECIMENOrdering Facility: [facility] Address: [address] [place] [address] Performed By: #### 5 7021-8 ####[facility]ATORYCLIA [id number] [address] [place] Neutrophils (Bld) [#/Vol] 8.19 10*3/uL High 1.45-7.50 [facility] Comment on above: Order Comment: Speci men Type: BLOOD SPECIMENOrdering Facility: [facility] Address: [address] [place] [address] Performed By: #### 5 7021-8 ####[facility]ATORYCLIA [id number] [address] [place] Neutrophils/100 WBC (Bld) 70.8 % Normal [facility] Comment on above: Order Comment: Speci men Type: BLOOD SPECIMENOrdering Facility: [facility] Address: [address] [address] Performed By: #### 5 7021-8 ####[facility]ATORYCLIA [id number] [address] [place] Nucleated RBC (Bld) [#/Vol] 10*3/uL Normal <0.01 [facility] Comment on above: Order Comment: Speci men Type: BLOOD SPECIMENOrdering Facility: [facility] Address: [address] [place] [address] Performed By: #### 5 7021-8 ####[facility]ATORYCLIA [id number] [address] STATES OF [facility] Nucleated RBC/100 WBC (Bld) [Ratio] 0.0 /100 WBC Normal [facility] Comment on above: Order Comment: Speci men Type: BLOOD SPECIMENOrdering Facility: [facility] Address: [address] [place] [address] Performed By: #### 5 7021-8 ####[facility]ORATORYCLIA [id number] [address] [place] Platelet mean volume (Bld) [Entitic vol] 9.6 fL Normal 9.0-12.7 [facility] Comment on above: Order Comment: Speci men Type: BLOOD SPECIMENOrdering Facility: [facility] Address: [address] [address] Performed By: #### 5 7021-8 ####[facility]ATORYCLIA [id number] [address] [place] Platelets (Bld) [#/Vol] 339 10*3/uL Normal 150-400 [facility] Comment on above: Order Comment: Speci men Type: BLOOD SPECIMENOrdering Facility: [facility] Address: [address] [place], [place] [address] Performed By: #### 5 7021-8 ####[facility]ORATORYCLIA [id number] [address] OF [facility] RBC (Bld) [#/Vol] 3.32 10*6/uL Low 4.20-6.00 [facility] Comment on above: Order Comment: Speci men Type: BLOOD SPECIMENOrdering Facility: [facility] Address: [address] [place] [address] Performed By: #### 5 7021-8 ####[facility]ATORYCLIA [id number] [address] STATES OF [facility] WBC (Bld) [#/Vol] 11.59 10*3/uL High 3.70-11.00 [facility] Comment on above: Order Comment: Speci men Type: BLOOD SPECIMENOrdering Facility: [facility] Address: [address] [place] [address] Performed By: #### 5 7021-8 ####[facility]ORATORYCLIA [id number] [address] [place] CT BRAIN WO IVCONon 08-06-19 CT BRAIN WO IVCON Normal [facility] Magnesium SerPl-mCncon 08-05 Magnesium [Mass/Vol] 2.2 mg/dL Normal 1.7-2.3 [facility] Comment on above: Order Comment: Speci men Type: BLOOD SPECIMENOrdering Facility: [facility] Address: [address] [place] [address] Performed By: #### 1 9123-9, 2777-1 ####[facility]ATORYCLIA [id number] [address] NURSING PROGon 08-05-2021 NURSING PROG Normal [facility] NURSING PROG Normal [facility] NUTRITIONon 08-05-2021 NUTRITION Normal [facility] OPERATIVE NOon 08-05-2021 OPERATIVE NO Normal [facility] Phosphate SerPl-mCncon 08-05 Phosphate [Mass/Vol] 4.6 mg/dL Normal 2.7-4.8 [facility] Comment on above: Order Comment: Speci men Type: BLOOD SPECIMENOrdering Facility: [facility] Address: [address] [place] [address] Performed By: #### 1 9123-9, 2777-1 ####[facility]ATORYCLIA [id number] [address] THERAPY NTon 08-05-2021 THERAPY NT Normal [facility] THERAPY NT Normal [facility] Urinalysis complete panel (U )on 08-05-2021 Bilirubin Ql (U) Negative Normal Negative [facility] Comment on above: Order Comment: Speci men Type: URINE SPECIMENOrdering Facility: [facility] Address: [address] [place] [address] Performed By: #### 2 4356-8 ####[facility]ITALCLIA [id number] [address] [place] Clarity (Unsp spec) Clear Normal Clear [facility] Comment on above: Order Comment: Speci men Type: URINE SPECIMENOrdering Facility: [facility] Address: [address] [place] [address] Performed By: #### 2 4356-8 ####[facility]PITALCLIA [id number] [address] Color (U) Light Yellow Normal yellow [facility] Comment on above: Order Comment: Speci men Type: URINE SPECIMENOrdering Facility: [facility] Address: [address] [place] [address] Performed By: #### 2 4356-8 ####[facility]ATORYCLIA [id number] [address] Epithelial cells LM.HPF (Urine sed) [#/Area] Few Abnormal None Seen [facility] Comment on above: Order Comment: Speci men Type: URINE SPECIMENOrdering Facility: [facility] Address: [address] [place] [address] Performed By: #### 2 4356-8 ####[facility] LABORATORYCLIA [id number] [address] Glucose Test strip (U) [Mass/Vol] Negative Normal Negative [facility] Comment on above: Order Comment: Speci men Type: URINE SPECIMENOrdering Facility: [facility] Address: [address] [place] [address] Performed By: #### 2 4356-8 ####[facility]ATORYCLIA [id number] [address] STATES [facility] Hemoglobin Ql (U) Negative Normal Negative [facility] Comment on above: Order Comment: Speci men Type: URINE SPECIMENOrdering Facility: [facility] Address: [address] [place] [address] Performed By: #### 2 4356-8 ####[facility]ATORYCLIA [id number] [address] Hyaline casts (Urine sed) [#/Area] 1-3 /LPF Abnormal 0 /LPF [facility] Comment on above: Order Comment: Speci men Type: URINE SPECIMENOrdering Facility: [facility] Address: [address] [place] [address] Performed By: #### 2 4356-8 ####[facility]ATORYCLIA [id number] [address] Ketones Ql (U) Negative Normal Negative [facility] Comment on above: Order Comment: Speci men Type: URINE SPECIMENOrdering Facility: [facility] Address: [address] [place] [address] Performed By: #### 2 4356-8 ####[facility]ATORYCLIA [id number] [address] Leukocyte esterase Test strip Ql (U) Negative Normal Negative [facility] Comment on above: Order Comment: Speci men Type: URINE SPECIMENOrdering Facility: [facility] Address: [address] [place] [address] Performed By: #### 2 4356-8 ####[facility]ATORYCLIA [id number] [address] STATES [facility] Nitrite Ql (U) Negative Normal Negative [facility] Comment on above: Order Comment: Speci men Type: URINE SPECIMENOrdering Facility: [facility] Address: [address] [place] [address] Performed By: #### 2 4356-8 ####[facility]ATORYCLIA [id number] [address] pH (U) 6.0 [pH] Normal 5.0-8.0 [facility] Comment on above: Order Comment: Speci men Type: URINE SPECIMENOrdering Facility: [facility] Address: [address] [place] [address] Performed By: #### 2 4356-8 ####[facility]PITALCLIA [id number] [address] Protein (U) [Mass/Vol] Negative Normal Negative [facility] Comment on above: Order Comment: Speci men Type: URINE SPECIMENOrdering Facility: [facility] Address: [address] [place] [address] Performed By: #### 2 4356-8 ####[facility]ATORYCLIA [id number] [address] RBC LM.HPF (Urine sed) [#/Area] 0-3 /HPF Normal 0-3 /HPF [facility] Comment on above: Order Comment: Speci men Type: URINE SPECIMENOrdering Facility: [facility] Address: [address] [place] [address] Performed By: #### 2 4356-8 ####[facility]ATORYCLIA [id number] [address] Specific gravity (U) [Rel density] 1.015 Normal 1.005-1.030 [facility] Comment on above: Order Comment: Speci men Type: URINE SPECIMENOrdering Facility: [facility] Address: [address] [place] [address] Performed By: #### 2 4356-8 ####[facility]ORATORYCLIA [id number] [address] [place] Urobilinogen Ql (U) Normal Normal Negative [facility] Comment on above: Order Comment: Speci men Type: URINE SPECIMENOrdering Facility: [facility] Address: [address] [place] [address] Performed By: #### 2 4356-8 ####[facility]ORATORYCLIA [id number] [place] [address] [place] WBC LM.HPF (Urine sed) [#/Area] 0-5 /HPF Normal 0-5 /HPF [facility] Comment on above: Order Comment: Speci men Type: URINE SPECIMENOrdering Facility: [facility] Address: [address] [place] [address] Performed By: #### 2 4356-8 ####[facility]ORATORYCLIA [id number] [address] [place] XR ABDOMEN 1V SUPINEon 08-05 XR ABDOMEN 1V SUPINE Normal [facility] XR CHEST 1V FRONTALon 2021 XR CHEST 1V FRONTAL Normal [facility] XR CHEST 1V FRONTAL Normal [facility] XR NECK SOFT TISSUE 2V AP/LA Ton 08-05-2021 XR NECK SOFT TISSUE 2V AP/LAT Normal [facility] XR SKULL 2V AP/LATon 022 XR SKULL 2V AP/LAT Normal [facility] ALLIED HEALTHon 08-04-2021 ALLIED HEALTH Normal [facility] Bacteria Bld Culton 08-05-19 22 Bacteria identified Cx Nom (Bld) CULTURE, BLOOD: No growth 5 days Normal [facility] Comment on above: Performed By: #### 6 00-7 ####[facility]ATORYCLIA [id number] [address] [place] Bacteria identified Cx Nom (Bld) CULTURE, BLOOD: No growth 5 days Normal [facility] Comment on above: Performed By: #### 6 00-7 ####[facility] LABORATORYCLIA [id number] [address] STATES [facility] CBC W Auto Differential pane l (Bld)on 08-04-2021 Basophils (Bld) [#/Vol] 0.05 10*3/uL Normal <0.11 [facility] Comment on above: Order Comment: Speci men Type: BLOOD SPECIMENOrdering Facility: [facility] Address: [address] [place] [address] Performed By: #### 5 7021-8 ####[facility]ATORYCLIA [id number] [address] Basophils/100 WBC (Bld) 0.4 % Normal [facility] Comment on above: Order Comment: Speci men Type: BLOOD SPECIMENOrdering Facility: [facility] Address: [address] [place] [address] Performed By: #### 5 7021-8 ####[facility]ORATORYCLIA [id number] [address] Differential cell count method Nom (Bld) Auto Normal [facility] Comment on above: Order Comment: Speci men Type: BLOOD SPECIMENOrdering Facility: [facility] Address: [address] [place] [address] Performed By: #### 5 7021-8 ####[facility]ORATORYCLIA [id number] [address] [place] Eosinophils (Bld) [#/Vol] 0.21 10*3/uL Normal <0.46 [facility] Comment on above: Order Comment: Speci men Type: BLOOD SPECIMENOrdering Facility: [facility] Address: [address] [place] [address] Performed By: #### 5 7021-8 ####[facility]ORATORYCLIA [id number] [address] Eosinophils/100 WBC (Bld) 1.7 % Normal [facility] Comment on above: Order Comment: Speci men Type: BLOOD SPECIMENOrdering Facility: [facility] Address: [address] [place] [address] Performed By: #### 5 7021-8 ####[facility] LABORATORYCLIA [id number] [address] Erythrocyte distribution width (RBC) [Ratio] 18.1 % High 11.5-15.0 [facility] Comment on above: Order Comment: Speci men Type: BLOOD SPECIMENOrdering Facility: [facility] Address: [address] [place] [address] Performed By: #### 5 7021-8 ####[facility] LABORATORYCLIA [id number] [address] Hematocrit (Bld) [Volume fraction] 32.0 % Low 39.0-51.0 [facility] Comment on above: Order Comment: Speci men Type: BLOOD SPECIMENOrdering Facility: [facility] Address: [address] [place] [address] Performed By: #### 5 7021-8 ####[facility] LABORATORYCLIA [id number] [address] Hemoglobin (Bld) [Mass/Vol] 10.0 g/dL Low 13.0-17.0 [facility] Comment on above: Order Comment: Speci men Type: BLOOD SPECIMENOrdering Facility: [facility] Address: [address] [place] [address] Performed By: #### 5 7021-8 ####[facility] LABORATORYCLIA [id number] [address] IMMATURE GRAN % 0.6 % Normal [facility] Comment on above: Order Comment: Speci men Type: BLOOD SPECIMENOrdering Facility: [facility] Address: [address] [place] [address] Performed By: #### 5 7021-8 ####[facility] LABORATORYCLIA [id number] [address] [place] IMMATURE GRAN ABS 0.08 k/uL Normal <0.10 [facility] Comment on above: Order Comment: Speci men Type: BLOOD SPECIMENOrdering Facility: [facility] Address: [address] [place] [address] Performed By: #### 5 7021-8 ####[facility] LABORATORYCLIA [id number] [address] Lymphocytes (Bld) [#/Vol] 2.55 10*3/uL Normal 1.00-4.00 [facility] Comment on above: Order Comment: Speci men Type: BLOOD SPECIMENOrdering Facility: [facility] Address: [address] [place] [address] Performed By: #### 5 7021-8 ####[facility]ORATORYCLIA [id number] [address] Lymphocytes/100 WBC (Bld) 20.5 % Normal [facility] Comment on above: Order Comment: Speci men Type: BLOOD SPECIMENOrdering Facility: [facility] Address: [address] [place] [address] Performed By: #### 5 7021-8 ####[facility]ORATORYCLIA [id number] [address] MCH (RBC) [Entitic mass] 28.9 pg Normal 26.0-34.0 [facility] Comment on above: Order Comment: Speci men Type: BLOOD SPECIMENOrdering Facility: [facility] Address: [address] [place] [address] Performed By: #### 5 7021-8 ####[facility] LABORATORYCLIA [id number] [address] MCHC (RBC) [Mass/Vol] 31.3 g/dL Normal 30.5-36.0 [facility] Comment on above: Order Comment: Speci men Type: BLOOD SPECIMENOrdering Facility: [facility] Address: [address] [place] [address] Performed By: #### 5 7021-8 ####[facility]ORATORYCLIA [id number] [address] [place] MCV (RBC) [Entitic vol] 92.5 fL Normal 80.0-100.0 [facility] Comment on above: Order Comment: Speci men Type: BLOOD SPECIMENOrdering Facility: [facility] Address: [address] [place] [address] Performed By: #### 5 7021-8 ####[facility] LABORATORYCLIA [id number] [address] [place] Monocytes (Bld) [#/Vol] 0.85 10*3/uL Normal <0.87 [facility] Comment on above: Order Comment: Speci men Type: BLOOD SPECIMENOrdering Facility: [facility] Address: [address] [place] [address] Performed By: #### 5 7021-8 ####[facility] LABORATORYCLIA [id number] [address] Monocytes/100 WBC (Bld) 6.8 % Normal [facility] Comment on above: Order Comment: Speci men Type: BLOOD SPECIMENOrdering Facility: [facility] Address: [address] [place] [address] Performed By: #### 5 7021-8 ####[facility] LABORATORYCLIA [id number] [address] [place] Neutrophils (Bld) [#/Vol] 8.68 10*3/uL High 1.45-7.50 [facility] Comment on above: Order Comment: Speci men Type: BLOOD SPECIMENOrdering Facility: [facility] Address: [address] [place] [address] Performed By: #### 5 7021-8 ####[facility] LABORATORYCLIA [id number] [address] [place] Neutrophils/100 WBC (Bld) 70.0 % Normal [facility] Comment on above: Order Comment: Speci men Type: BLOOD SPECIMENOrdering Facility: [facility] Address: [address] Performed By: #### 5 7021-8 ####[facility] LABORATORYCLIA [id number] [address] Nucleated RBC (Bld) [#/Vol] 10*3/uL Normal <0.01 [facility] Comment on above: Order Comment: Speci men Type: BLOOD SPECIMENOrdering Facility: [facility] Address: [address] [place] [address] Performed By: #### 5 7021-8 ####[facility] LABORATORYCLIA [id number] [address] Nucleated RBC/100 WBC (Bld) [Ratio] 0.0 /100 WBC Normal [facility] Comment on above: Order Comment: Speci men Type: BLOOD SPECIMENOrdering Facility: [facility] Address: [address] [place] [address] Performed By: #### 5 7021-8 ####[facility] LABORATORYCLIA [id number] [address] [place] Platelet mean volume (Bld) [Entitic vol] 10.0 fL Normal 9.0-12.7 [facility] Comment on above: Order Comment: Speci men Type: BLOOD SPECIMENOrdering Facility: [facility] Address: [address] [place] [address] Performed By: #### 5 7021-8 ####[facility] LABORATORYCLIA [id number] [address] [place] Platelets (Bld) [#/Vol] 393 10*3/uL Normal 150-400 [facility] Comment on above: Order Comment: Speci men Type: BLOOD SPECIMENOrdering Facility: [facility] Address: [address] [place] [address] Performed By: #### 5 7021-8 ####[facility] LABORATORYCLIA [id number] [place] [address] [place] RBC (Bld) [#/Vol] 3.46 10*6/uL Low 4.20-6.00 [facility] Comment on above: Order Comment: Speci men Type: BLOOD SPECIMENOrdering Facility: [facility] Address: [address] [place] [address] Performed By: #### 5 7021-8 ####[facility] LABORATORYCLIA [id number] [address] WBC (Bld) [#/Vol] 12.42 10*3/uL High 3.70-11.00 [facility] Comment on above: Order Comment: Speci men Type: BLOOD SPECIMENOrdering Facility: [facility] Address: [address] [place] [address] Performed By: #### 5 7021-8 ####[facility] LABORATORYCLIA [id number] [address] BRAIN WO IVCONon 08-05-[address] BRAIN WO IVCON Normal [facility] Lactate (Bld) [Moles/Vol]on 08-04-2021 Lactate [Moles/Vol] 1.4 mmol/L Normal 0.5-2.2 [facility] Comment on above: Order Comment: Speci men Type: BLOOD SPECIMENOrdering Facility: [facility] Address: [address] [place] [address] Performed By: #### 3 2693-4 ####[facility] LABORATORYCLIA [id number] [address] PROCALCITONIN (LAB)on 2021 Procalcitonin [Mass/Vol] 0.08 ng/mL Normal <0.09 [facility] Comment on above: Order Comment: Speci men Type: BLOOD SPECIMENOrdering Facility: [facility] Address: [address] [place] [address] Result Comment: For a guided interpretation of test results, please visit the Change in Procalcitonin Calculator, [email or web address]. Performed By: #### P ROCAL ####[facility] LABORATORYCLIA [id number] [address] [place] Prealbumin [Mass/Vol]on 07-07 Prealbumin Nephelometry [Mass/Vol] 35 mg/dL Normal 17-36 [facility] Comment on above: Order Comment: Speci men Type: BLOOD SPECIMENOrdering Facility: [facility] Address: [address] [place] [address] Performed By: #### 1 4338-8 ####[facility] LABORATORYCLIA [id number] [address] [place] SARS-CoV-2 RNA Resp Ql MEGAN+p robeon 08-04-2021 SARS-CoV-2 (COVID-19) RNA MEGAN+probe Ql (Resp) COVID 19 RESULT: SARS-CoV-2 (Agent of COVID-19) Not Detected by RT-PCR or equivalent method. This test has been authorized by FDA under an Emergency Use Authorization (EUA). Normal [facility] Comment on above: Performed By: #### 9 4500-6 ####[facility] LABORATORYCLIA [id number] [address] STATES OF [facility] TYPE AND SCREENon 08-04-2021 ABO O Normal [facility] Comment on above: Order Comment: Speci men Type: BLOOD SPECIMENOrdering Facility: [facility] Address: [address] [place] [address] Performed By: #### T SCR ####[facility] BLOOD BANKCLIA [id number] [address] HISTORICAL AB SCR STATUS Negative [facility] Comment on above: Order Comment: Speci men Type: BLOOD SPECIMENOrdering Facility: [facility] Address: [address] [place] [address] Performed By: #### T SCR ####[facility] BLOOD BANKCLIA [id number] [address] Rh Nom (Bld) Positive Normal [facility] Comment on above: Order Comment: Speci men Type: BLOOD SPECIMENOrdering Facility: [facility] Address: [address] [place] [address] Performed By: #### T SCR ####[facility] BLOOD BANKCLIA [id number] [place] [id number] [facility] TYPE AND SCREEN EXPIRATION 08/07/2021 23:59 Normal [facility] Comment on above: Order Comment: Speci men Type: BLOOD SPECIMENOrdering Facility: [facility] Address: [address] [place] [address] Performed By: #### T SCR ####[facility] BLOOD BANKCLIA [id number] [address] aPTT PPPon 08-04-2021 aPTT Coag (PPP) [Time] 51.8 s High 23.0-32.4 [facility] Comment on above: Order Comment: Speci men Type: BLOOD SPECIMENOrdering Facility: [facility] Address: [address] [place] [address] Performed By: #### 1 4979-9 ####[facility] LABORATORYCLIA [id number] [address] [place] Basic metabolic 2000 panelon 08-03-2021 Anion gap [Moles/Vol] 9 mmol/L Normal 9-18 [facility] Comment on above: Order Comment: Speci men Type: BLOOD SPECIMENOrdering Facility: [facility] Address: [address] [place] [address] Performed By: #### 2 4321-2, , 2776-05 ####[facility] LABORATORYCLIA [id number] [address] STATES [facility] Calcium [Mass/Vol] 9.3 mg/dL Normal 8.5-10.2 [facility] Comment on above: Order Comment: Speci men Type: BLOOD SPECIMENOrdering Facility: [facility] Address: [address] [place] [address] Performed By: #### 2 4321-2, , 2776-05 ####[facility] LABORATORYCLIA [id number] [place] [address] [place] Chloride [Moles/Vol] 97 mmol/L Normal 97-105 [facility] Comment on above: Order Comment: Speci men Type: BLOOD SPECIMENOrdering Facility: [facility] Address: [address] [place] [address] Performed By: #### 2 4321-2, , 2776-05 ####[facility] LABORATORYCLIA [id number] [address] OF [facility] CO2 [Moles/Vol] 27 mmol/L Normal 22-30 [facility] Comment on above: Order Comment: Speci men Type: BLOOD SPECIMENOrdering Facility: [facility] Address: [address] [place] [address] Performed By: #### 2 4321-2, , 2776-05 ####[facility] LABORATORYCLIA [id number] [address] Creatinine [Mass/Vol] 0.63 mg/dL Low 0.73-1.22 [facility] Comment on above: Order Comment: Speci men Type: BLOOD SPECIMENOrdering Facility: [facility] Address: [address] [place] [address] Performed By: #### 2 4321-2, , 2776-05 ####[facility] LABORATORYCLIA [id number] [address] ESTIMATED GLOMERULAR FILTRATION RATE 103 mL/min/1.73m??? Normal >=60 [facility] Comment on above: Order Comment: Speci men Type: BLOOD SPECIMENOrdering Facility: [facility] Address: [address] [place] [address] Result Comment: Luzmaria mated Glomerular Filtration Rate [...] Performed By: #### 2 4321-2, , 2776-05 ####[facility] LABORATORYCLIA [id number] [place] [address] [place] Glucose [Mass/Vol] 136 mg/dL High 74-99 [facility] Comment on above: Order Comment: Shira feldman Type: BLOOD SPECIMENOrdering Facility: [facility] Address: [address] [place], [place] [address] Result Comment: The [place] [employer] (ADA) provides guidance for cutoff [...] Standards of Medical Care in Diabetes 2016, [place] [employer]. Diabetes Care. 2016.39(Suppl 1). Performed By: #### 2 4321-2, , 2776-05 ####[facility] LABORATORYCLIA [id number] [place] [address] [place] Potassium [Moles/Vol] 4.1 mmol/L Normal 3.7-5.1 [facility] Comment on above: Order Comment: Shira feldman Type: BLOOD SPECIMENOrdering Facility: [facility] Address: [address] [place] [address] Performed By: #### 2 4321-2, , 2776-05 ####[facility] LABORATORYCLIA [id number] [place] [address] [place] Sodium [Moles/Vol] 133 mmol/L Low 136-144 [facility] Comment on above: Order Comment: Shira feldman Type: BLOOD SPECIMENOrdering Facility: [facility] Address: [address] [place] [address] Performed By: #### 2 4321-2, 73212-7, 2771 ####[facility] LABORATORYCLIA [id number] [address] STATES [facility] Urea nitrogen [Mass/Vol] 40 mg/dL High 9-24 [facility] Comment on above: Order Comment: Speci men Type: BLOOD SPECIMENOrdering Facility: [facility] Address: [address] [place] [address] Performed By: #### 2 4321-2, , 27711-04 ####[facility] LABORATORYCLIA [id number] [address] CASE MANAGEMon 08-03-2021 CASE MANAGEM Normal [facility] CBC W Auto Differential pane l (Bld)on 08-03-2021 Basophils (Bld) [#/Vol] 0.06 10*3/uL Normal <0.11 [facility] Comment on above: Order Comment: Speci men Type: BLOOD SPECIMENOrdering Facility: [facility] Address: [address] [place] [address] Performed By: #### 5 7021-8 ####[facility] LABORATORYCLIA [id number] [address] [place] Basophils/100 WBC (Bld) 0.5 % Normal [facility] Comment on above: Order Comment: Speci men Type: BLOOD SPECIMENOrdering Facility: [facility] Address: [address] [place] [address] Performed By: #### 5 7021-8 ####[facility] LABORATORYCLIA [id number] [address] Differential cell count method Nom (Bld) Auto Normal [facility] Comment on above: Order Comment: Speci men Type: BLOOD SPECIMENOrdering Facility: [facility] Address: [address] [place] [address] Performed By: #### 5 7021-8 ####[facility]ORATORYCLIA [id number] [place] [address] [place] Eosinophils (Bld) [#/Vol] 0.23 10*3/uL Normal <0.46 [facility] Comment on above: Order Comment: Speci men Type: BLOOD SPECIMENOrdering Facility: [facility] Address: [address] [place] [address] Performed By: #### 5 7021-8 ####[facility] LABORATORYCLIA [id number] [address] [place] Eosinophils/100 WBC (Bld) 1.8 % Normal [facility] Comment on above: Order Comment: Speci men Type: BLOOD SPECIMENOrdering Facility: [facility] Address: [address] [place] [address] Performed By: #### 5 7021-8 ####[facility] LABORATORYCLIA [id number] [address] STATES [facility] Erythrocyte distribution width (RBC) [Ratio] 17.6 % High 11.5-15.0 [facility] Comment on above: Order Comment: Speci men Type: BLOOD SPECIMENOrdering Facility: [facility] Address: [address] [place] [address] Performed By: #### 5 7021-8 ####[facility] LABORATORYCLIA [id number] [address] [place] Hematocrit (Bld) [Volume fraction] 30.7 % Low 39.0-51.0 [facility] Comment on above: Order Comment: Speci men Type: BLOOD SPECIMENOrdering Facility: [facility] Address: [address] [place] [address] Performed By: #### 5 7021-8 ####[facility] LABORATORYCLIA [id number] [address] [place] Hemoglobin (Bld) [Mass/Vol] 9.3 g/dL Low 13.0-17.0 [facility] Comment on above: Order Comment: Speci men Type: BLOOD SPECIMENOrdering Facility: [facility] Address: [address] [place] [address] Performed By: #### 5 7021-8 ####[facility]ATORYCLIA [id number] [address] IMMATURE GRAN % 0.6 % Normal [facility] Comment on above: Order Comment: Speci men Type: BLOOD SPECIMENOrdering Facility: [facility] Address: [address] [place] [address] Performed By: #### 5 7021-8 ####[facility] LABORATORYCLIA [id number] [address] IMMATURE GRAN ABS 0.08 k/uL Normal <0.10 [facility] Comment on above: Order Comment: Speci men Type: BLOOD SPECIMENOrdering Facility: [facility] Address: [address] [place] [address] Performed By: #### 5 7021-8 ####[facility] LABORATORYCLIA [id number] [address] Lymphocytes (Bld) [#/Vol] 2.45 10*3/uL Normal 1.00-4.00 [facility] Comment on above: Order Comment: Speci men Type: BLOOD SPECIMENOrdering Facility: [facility] Address: [address] [place] [address] Performed By: #### 5 7021-8 ####[facility] LABORATORYCLIA [id number] [address] Lymphocytes/100 WBC (Bld) 19.7 % Normal [facility] Comment on above: Order Comment: Speci men Type: BLOOD SPECIMENOrdering Facility: [facility] Address: [address] [place] [address] Performed By: #### 5 7021-8 ####[facility]ATORYCLIA [id number] [address] [place] MCH (RBC) [Entitic mass] 28.2 pg Normal 26.0-34.0 [facility] Comment on above: Order Comment: Speci men Type: BLOOD SPECIMENOrdering Facility: [facility] Address: [address] [place] [address] Performed By: #### 5 7021-8 ####[facility] LABORATORYCLIA [id number] [address] STATES OF [facility] MCHC (RBC) [Mass/Vol] 30.3 g/dL Low 30.5-36.0 [facility] Comment on above: Order Comment: Speci men Type: BLOOD SPECIMENOrdering Facility: [facility] Address: [address] [place] [address] Performed By: #### 5 7021-8 ####[facility] LABORATORYCLIA [id number] [address] [place] MCV (RBC) [Entitic vol] 93.0 fL Normal 80.0-100.0 [facility] Comment on above: Order Comment: Speci men Type: BLOOD SPECIMENOrdering Facility: [facility] Address: [address] [place] [address] Performed By: #### 5 7021-8 ####[facility] LABORATORYCLIA [id number] [address] OF [facility] Monocytes (Bld) [#/Vol] 0.72 10*3/uL Normal <0.87 [facility] Comment on above: Order Comment: Speci men Type: BLOOD SPECIMENOrdering Facility: [facility] Address: [address] [place] [address] Performed By: #### 5 7021-8 ####[facility] LABORATORYCLIA [id number] [address] Monocytes/100 WBC (Bld) 5.8 % Normal [facility] Comment on above: Order Comment: Speci men Type: BLOOD SPECIMENOrdering Facility: [facility] Address: [address] [place] [address] Performed By: #### 5 7021-8 ####[facility] LABORATORYCLIA [id number] [address] [place] Neutrophils (Bld) [#/Vol] 8.92 10*3/uL High 1.45-7.50 [facility] Comment on above: Order Comment: Speci men Type: BLOOD SPECIMENOrdering Facility: [facility] Address: [address] [place] [address] Performed By: #### 5 7021-8 ####[facility] LABORATORYCLIA [id number] [address] Neutrophils/100 WBC (Bld) 71.6 % Normal [facility] Comment on above: Order Comment: Speci men Type: BLOOD SPECIMENOrdering Facility: [facility] Address: [address] [place] [address] Performed By: #### 5 7021-8 ####[facility] LABORATORYCLIA [id number] [address] Nucleated RBC (Bld) [#/Vol] 10*3/uL Normal <0.01 [facility] Comment on above: Order Comment: Speci men Type: BLOOD SPECIMENOrdering Facility: [facility] Address: [address] [place] [address] Performed By: #### 5 7021-8 ####[facility] LABORATORYCLIA [id number] [address] [place] Nucleated RBC/100 WBC (Bld) [Ratio] 0.0 /100 WBC Normal [facility] Comment on above: Order Comment: Speci men Type: BLOOD SPECIMENOrdering Facility: [facility] Address: [address] [place] [address] Performed By: #### 5 7021-8 ####[facility] LABORATORYCLIA [id number] [address] [place] Platelet mean volume (Bld) [Entitic vol] 10.2 fL Normal 9.0-12.7 [facility] Comment on above: Order Comment: Speci men Type: BLOOD SPECIMENOrdering Facility: [facility] Address: [address] Performed By: #### 5 7021-8 ####[facility] LABORATORYCLIA [id number] [address] OF [facility] Platelets (Bld) [#/Vol] 352 10*3/uL Normal 150-400 [facility] Comment on above: Order Comment: Speci men Type: BLOOD SPECIMENOrdering Facility: [facility] Address: [address] [place] [address] Performed By: #### 5 7021-8 ####[facility] LABORATORYCLIA [id number] [address] [place] RBC (Bld) [#/Vol] 3.30 10*6/uL Low 4.20-6.00 [facility] Comment on above: Order Comment: Speci men Type: BLOOD SPECIMENOrdering Facility: [facility] Address: [address] [place] [address] Performed By: #### 5 7021-8 ####[facility] LABORATORYCLIA [id number] [address] [place] WBC (Bld) [#/Vol] 12.46 10*3/uL High 3.70-11.00 [facility] Comment on above: Order Comment: Speci men Type: BLOOD SPECIMENOrdering Facility: [facility] Address: [address] [place] [address] Performed By: #### 5 7021-8 ####[facility] LABORATORYCLIA [id number] [address] CONSULT PROGon 08-03-2021 CONSULT PROG Normal [facility] Magnesium SerPl-mCncon 08-03 Magnesium [Mass/Vol] 2.2 mg/dL Normal 1.7-2.3 [facility] Comment on above: Order Comment: Speci men Type: BLOOD SPECIMENOrdering Facility: [facility] Address: [address] [place] [address] Performed By: #### 2 4321-2, , 2776-05 ####[facility] LABORATORYCLIA [id number] [address] [place] [facility] NURSING PROGon 08-03-2021 NURSING PROG Normal [facility] Phosphate SerPl-mCncon 08-03 Phosphate [Mass/Vol] 4.2 mg/dL Normal 2.7-4.8 [facility] Comment on above: Order Comment: Speci men Type: BLOOD SPECIMENOrdering Facility: [facility] Address: [address] [place] [address] Performed By: #### 2 4321-2, , 2776-05 ####[facility] LABORATORYCLIA [id number] [address] aPTT PPPon 08-03-2021 aPTT Coag (PPP) [Time] 50.0 s High 23.0-32.4 [facility] Comment on above: Order Comment: Speci men Type: BLOOD SPECIMENOrdering Facility: [facility] Address: [address] [place] [address] Performed By: #### 1 4979-9 ####[facility]ORATORYCLIA [id number] [address] [place] [facility] CBC W Auto Differential pane l (Bld)on 08-02-2021 Basophils (Bld) [#/Vol] 10*3/uL Normal <0.11 [facility] Comment on above: Order Comment: Speci men Type: BLOOD SPECIMENOrdering Facility: [facility] Address: [address] [place] [address] Performed By: #### 5 7021-8 ####[facility]ATORYCLIA [id number] [address] Basophils/100 WBC (Bld) 0.2 % Normal [facility] Comment on above: Order Comment: Speci men Type: BLOOD SPECIMENOrdering Facility: [facility] Address: [address] [place] [address] Performed By: #### 5 7021-8 ####[facility]ATORYCLIA [id number] [address] Differential cell count method Nom (Bld) Auto Normal [facility] Comment on above: Order Comment: Speci men Type: BLOOD SPECIMENOrdering Facility: [facility] Address: [address] [place] [address] Performed By: #### 5 7021-8 ####[facility]ORATORYCLIA [id number] [address] [place] Eosinophils (Bld) [#/Vol] 10*3/uL Normal <0.46 [facility] Comment on above: Order Comment: Speci men Type: BLOOD SPECIMENOrdering Facility: [facility] Address: [address] [place] [address] Performed By: #### 5 7021-8 ####[facility]ORATORYCLIA [id number] [address] Eosinophils/100 WBC (Bld) 0.0 % Normal [facility] Comment on above: Order Comment: Speci men Type: BLOOD SPECIMENOrdering Facility: [facility] Address: [address] [place] [address] Performed By: #### 5 7021-8 ####[facility]ORATORYCLIA [id number] [address] [place] Erythrocyte distribution width (RBC) [Ratio] 17.3 % High 11.5-15.0 [facility] Comment on above: Order Comment: Speci men Type: BLOOD SPECIMENOrdering Facility: [facility] Address: [address] [place] [address] Performed By: #### 5 7021-8 ####[facility]ORATORYCLIA [id number] [address] Hematocrit (Bld) [Volume fraction] 30.8 % Low 39.0-51.0 [facility] Comment on above: Order Comment: Speci men Type: BLOOD SPECIMENOrdering Facility: [facility] Address: [address] [address] Performed By: #### 5 7021-8 ####[facility]ATORYCLIA [id number] [address] [place] Hemoglobin (Bld) [Mass/Vol] 9.7 g/dL Low 13.0-17.0 [facility] Comment on above: Order Comment: Speci men Type: BLOOD SPECIMENOrdering Facility: [facility] Address: [address] [place] [address] Performed By: #### 5 7021-8 ####[facility]ORATORYCLIA [id number] [address] IMMATURE GRAN % 0.5 % Normal [facility] Comment on above: Order Comment: Speci men Type: BLOOD SPECIMENOrdering Facility: [facility] Address: [address] [place] [address] Performed By: #### 5 7021-8 ####[facility]ATORYCLIA [id number] [address] IMMATURE GRAN ABS 0.07 k/uL Normal <0.10 [facility] Comment on above: Order Comment: Speci men Type: BLOOD SPECIMENOrdering Facility: [facility] Address: [address] [place] [address] Performed By: #### 5 7021-8 ####[facility]ATORYCLIA [id number] [address] [place] Lymphocytes (Bld) [#/Vol] 1.60 10*3/uL Normal 1.00-4.00 [facility] Comment on above: Order Comment: Speci men Type: BLOOD SPECIMENOrdering Facility: [facility] Address: [address] [place] [address] Performed By: #### 5 7021-8 ####[facility]ATORYCLIA [id number] [address] [place] Lymphocytes/100 WBC (Bld) 12.1 % Normal [facility] Comment on above: Order Comment: Speci men Type: BLOOD SPECIMENOrdering Facility: [facility] Address: [address] [place] [address] Performed By: #### 5 7021-8 ####[facility]ATORYCLIA [id number] [address] MCH (RBC) [Entitic mass] 28.6 pg Normal 26.0-34.0 [facility] Comment on above: Order Comment: Speci men Type: BLOOD SPECIMENOrdering Facility: [facility] Address: [address] [place] [address] Performed By: #### 5 7021-8 ####[facility]ATORYCLIA [id number] [address] MCHC (RBC) [Mass/Vol] 31.5 g/dL Normal 30.5-36.0 [facility] Comment on above: Order Comment: Speci men Type: BLOOD SPECIMENOrdering Facility: [facility] Address: [address] [place] [address] Performed By: #### 5 7021-8 ####[facility]ATORYCLIA [id number] [address] MCV (RBC) [Entitic vol] 90.9 fL Normal 80.0-100.0 [facility] Comment on above: Order Comment: Speci men Type: BLOOD SPECIMENOrdering Facility: [facility] Address: [address] [place] [address] Performed By: #### 5 7021-8 ####[facility]ATORYCLIA [id number] [address] Monocytes (Bld) [#/Vol] 0.39 10*3/uL Normal <0.87 [facility] Comment on above: Order Comment: Speci men Type: BLOOD SPECIMENOrdering Facility: [facility] Address: [address] [place] [address] Performed By: #### 5 7021-8 ####[facility]ATORYCLIA [id number] [address] [place] Monocytes/100 WBC (Bld) 3.0 % Normal [facility] Comment on above: Order Comment: Speci men Type: BLOOD SPECIMENOrdering Facility: [facility] Address: [address] [place] [address] Performed By: #### 5 7021-8 ####[facility]ORATORYCLIA [id number] [place] [address] [place] Neutrophils (Bld) [#/Vol] 11.09 10*3/uL High 1.45-7.50 [facility] Comment on above: Order Comment: Speci men Type: BLOOD SPECIMENOrdering Facility: [facility] Address: [address] [place] [address] Performed By: #### 5 7021-8 ####[facility]ORATORYCLIA [id number] [address] [place] Neutrophils/100 WBC (Bld) 84.2 % Normal [facility] Comment on above: Order Comment: Speci men Type: BLOOD SPECIMENOrdering Facility: [facility] Address: [address] [place] [address] Performed By: #### 5 7021-8 ####[facility]ORATORYCLIA [id number] [place] [address] [place] Nucleated RBC (Bld) [#/Vol] 10*3/uL Normal <0.01 [facility] Comment on above: Order Comment: Speci men Type: BLOOD SPECIMENOrdering Facility: [facility] Address: [address] [place] [address] Performed By: #### 5 7021-8 ####[facility]ATORYCLIA [id number] [address] [place] Nucleated RBC/100 WBC (Bld) [Ratio] 0.0 /100 WBC Normal [facility] Comment on above: Order Comment: Speci men Type: BLOOD SPECIMENOrdering Facility: [facility] Address: [address] [place] [address] Performed By: #### 5 7021-8 ####[facility]ATORYCLIA [id number] [address] [place] Platelet mean volume (Bld) [Entitic vol] 10.0 fL Normal 9.0-12.7 [facility] Comment on above: Order Comment: Speci men Type: BLOOD SPECIMENOrdering Facility: [facility] Address: [address] [place], [place] [address] Performed By: #### 5 7021-8 ####[facility]ORATORYCLIA [id number] [address] [place] Platelets (Bld) [#/Vol] 358 10*3/uL Normal 150-400 [facility] Comment on above: Order Comment: Speci men Type: BLOOD SPECIMENOrdering Facility: [facility] Address: [address] [place] [address] Performed By: #### 5 7021-8 ####[facility]ATORYCLIA [id number] [address] [place] RBC (Bld) [#/Vol] 3.39 10*6/uL Low 4.20-6.00 [facility] Comment on above: Order Comment: Speci men Type: BLOOD SPECIMENOrdering Facility: [facility] Address: [address] [place], [place] [address] Performed By: #### 5 7021-8 ####[facility]ORATORYCLIA [id number] [address] [place] WBC (Bld) [#/Vol] 13.17 10*3/uL High 3.70-11.00 [facility] Comment on above: Order Comment: Speci men Type: BLOOD SPECIMENOrdering Facility: [facility] Address: [address] [place], [place] [address] Performed By: #### 5 7021-8 ####[facility]ORATORYCLIA [id number] [address] [place] NURSING PROGon 08-02-2021 NURSING PROG Normal [facility] THERAPY NTon 08-02-2021 THERAPY NT Normal [facility] aPTT PPPon 08-02-2021 aPTT Coag (PPP) [Time] 54.9 s High 23.0-32.4 [facility] Comment on above: Order Comment: Speci men Type: BLOOD SPECIMENOrdering Facility: [facility] Address: [address] [place] [address] Performed By: #### 1 4979-9 ####[facility]ORATORYCLIA [id number] [place] [address] [place] ALLIED HEALTHon 08-01-2021 ALLIED HEALTH Normal [facility] ALLIED HEALTH Normal [facility] Basic metabolic 2000 panelon 08-01-2021 Anion gap [Moles/Vol] 12 mmol/L Normal 9-18 [facility] Comment on above: Order Comment: Speci men Type: BLOOD SPECIMENOrdering Facility: [facility] Address: [address] [place] [address] Performed By: #### 2 4321-2, 09095-4, 68109-2, 2777-1 ####[facility]ORATORYCLIA [id number] [place] [address] [place] Calcium [Mass/Vol] 9.1 mg/dL Normal 8.5-10.2 [facility] Comment on above: Order Comment: Speci men Type: BLOOD SPECIMENOrdering Facility: [facility] Address: [address] [place] [address] Performed By: #### 2 4321-2, 07007-3, 02798-3, 2777-1 ####[facility]ATORYCLIA [id number] [place] [address] [place] Chloride [Moles/Vol] 96 mmol/L Low 97-105 [facility] Comment on above: Order Comment: Speci men Type: BLOOD SPECIMENOrdering Facility: [facility] Address: [address] [place] [address] Performed By: #### 2 4321-2, 77734-7, 60114-4, 2777-1 ####[facility]ORATORYCLIA [id number] [place] [address] [place] CO2 [Moles/Vol] 27 mmol/L Normal 22-30 [facility] Comment on above: Order Comment: Speci men Type: BLOOD SPECIMENOrdering Facility: [facility] Address: [address] [place] [address] Performed By: #### 2 4321-2, 39584-3, 55189-1, 2776- ####[facility]ORATORYCLIA [id number] [place] [id number] [place] Creatinine [Mass/Vol] 0.64 mg/dL Low 0.73-1.22 [facility] Comment on above: Order Comment: Speci men Type: BLOOD SPECIMENOrdering Facility: [facility] Address: [address] [place] [address] Performed By: #### 2 4321-2, 27334-0, 22950-1, 2776-05 ####[facility] [id number] [address] [place] ESTIMATED GLOMERULAR FILTRATION RATE 102 mL/min/1.73m??? Normal >=60 [facility] Comment on above: Order Comment: Speci men Type: BLOOD SPECIMENOrdering Facility: [facility] Address: [address] [place] [address] Result Comment: Luzmaria mated Glomerular Filtration Rate [...] actual GFR. Performed By: #### 2 4321-2, 43221-5, 73624-9, 277-1 ####[facility]ATORYCLIA [id number] [place] [address] [place] Glucose [Mass/Vol] 122 mg/dL High 74-99 [facility] Comment on above: Order Comment: Shira feldman Type: BLOOD SPECIMENOrdering Facility: [facility] Address: [address] [place] [address] Result Comment: The [place] [employer] (ADA) provides guidance for cutoff [...] Standards of Medical Care in Diabetes 2016, [place] [employer]. Diabetes Care. 2016.39(Suppl 1). Performed By: #### 2 4321-2, 63226-7, 26184-7, 7-1 ####[facility]ORATORYCLIA [id number] [place] [address] [place] Potassium [Moles/Vol] 4.2 mmol/L Normal 3.7-5.1 [facility] Comment on above: Order Comment: Shira feldman Type: BLOOD SPECIMENOrdering Facility: [facility] Address: [address] [place] [address] Performed By: #### 2 4321-2, 25424-1, 07026-4, 7-1 ####[facility]ATORYCLIA [id number] [place] [address] [place] Sodium [Moles/Vol] 135 mmol/L Low 136-144 [facility] Comment on above: Order Comment: Shira feldman Type: BLOOD SPECIMENOrdering Facility: [facility] Address: [address] [place] [address] Performed By: #### 2 4321-2, 04408-4, 91688-5, 2777-1 ####[facility]ORATORYCLIA [id number] [place] [address] [place] Urea nitrogen [Mass/Vol] 36 mg/dL High 9-24 [facility] Comment on above: Order Comment: Speci men Type: BLOOD SPECIMENOrdering Facility: [facility] Address: [address] [place] [address] Performed By: #### 2 4321-2, 76902-0, 16332-9, 2777-1 ####[facility]ORATORYCLIA [id number] [address] [place] CASE MANAGEMon 08-01-2021 CASE MANAGEM Normal [facility] CBC W Auto Differential pane l (Bld)on 08-01-2021 Basophils (Bld) [#/Vol] 0.04 10*3/uL Normal <0.11 [facility] Comment on above: Order Comment: Speci men Type: BLOOD SPECIMENOrdering Facility: [facility] Address: [address] [place] [address] Performed By: #### 5 7021-8 ####[facility]ATORYCLIA [id number] [address] [place] Basophils/100 WBC (Bld) 0.3 % Normal [facility] Comment on above: Order Comment: Speci men Type: BLOOD SPECIMENOrdering Facility: [facility] Address: [address] [place] [address] Performed By: #### 5 7021-8 ####[facility]ATORYCLIA [id number] [address] [place] Differential cell count method Nom (Bld) Auto Normal [facility] Comment on above: Order Comment: Speci men Type: BLOOD SPECIMENOrdering Facility: [facility] Address: [address] [place] [address] Performed By: #### 5 7021-8 ####[facility]ATORYCLIA [id number] [address] [place] Eosinophils (Bld) [#/Vol] 0.37 10*3/uL Normal <0.46 [facility] Comment on above: Order Comment: Speci men Type: BLOOD SPECIMENOrdering Facility: [facility] Address: [address] [place] [address] Performed By: #### 5 7021-8 ####[facility]ATORYCLIA [id number] [address] Eosinophils/100 WBC (Bld) 3.1 % Normal [facility] Comment on above: Order Comment: Speci men Type: BLOOD SPECIMENOrdering Facility: [facility] Address: [address] [place] [address] Performed By: #### 5 7021-8 ####[facility]ATORYCLIA [id number] [address] Erythrocyte distribution width (RBC) [Ratio] 17.5 % High 11.5-15.0 [facility] Comment on above: Order Comment: Speci men Type: BLOOD SPECIMENOrdering Facility: [facility] Address: [address] [place] [address] Performed By: #### 5 7021-8 ####[facility]ATORYCLIA [id number] [address] Hematocrit (Bld) [Volume fraction] 30.1 % Low 39.0-51.0 [facility] Comment on above: Order Comment: Speci men Type: BLOOD SPECIMENOrdering Facility: [facility] Address: [address] [place] [address] Performed By: #### 5 7021-8 ####[facility]ATORYCLIA [id number] [address] Hemoglobin (Bld) [Mass/Vol] 9.1 g/dL Low 13.0-17.0 [facility] Comment on above: Order Comment: Speci men Type: BLOOD SPECIMENOrdering Facility: [facility] Address: [address] [place] [address] Performed By: #### 5 7021-8 ####[facility]ATORYCLIA [id number] [address] [place] IMMATURE GRAN % 0.6 % Normal [facility] Comment on above: Order Comment: Speci men Type: BLOOD SPECIMENOrdering Facility: [facility] Address: [address] [place] [address] Performed By: #### 5 7021-8 ####[facility]ATORYCLIA [id number] [address] [place] [facility] IMMATURE GRAN ABS 0.07 k/uL Normal <0.10 [facility] Comment on above: Order Comment: Speci men Type: BLOOD SPECIMENOrdering Facility: [facility] Address: [address] [place] [address] Performed By: #### 5 7021-8 ####[facility]ATORYCLIA [id number] [address] Lymphocytes (Bld) [#/Vol] 2.05 10*3/uL Normal 1.00-4.00 [facility] Comment on above: Order Comment: Speci men Type: BLOOD SPECIMENOrdering Facility: [facility] Address: [address] [place] [address] Performed By: #### 5 7021-8 ####[facility]ATORYCLIA [id number] [address] Lymphocytes/100 WBC (Bld) 17.1 % Normal [facility] Comment on above: Order Comment: Speci men Type: BLOOD SPECIMENOrdering Facility: [facility] Address: [address] [place] [address] Performed By: #### 5 7021-8 ####[facility]ATORYCLIA [id number] [address] MCH (RBC) [Entitic mass] 27.7 pg Normal 26.0-34.0 [facility] Comment on above: Order Comment: Speci men Type: BLOOD SPECIMENOrdering Facility: [facility] Address: [address] [place] [address] Performed By: #### 5 7021-8 ####[facility]ATORYCLIA [id number] [address] [place] MCHC (RBC) [Mass/Vol] 30.2 g/dL Low 30.5-36.0 [facility] Comment on above: Order Comment: Speci men Type: BLOOD SPECIMENOrdering Facility: [facility] Address: [address] [place] [address] Performed By: #### 5 7021-8 ####[facility]ATORYCLIA [id number] [address] [place] MCV (RBC) [Entitic vol] 91.5 fL Normal 80.0-100.0 [facility] Comment on above: Order Comment: Speci men Type: BLOOD SPECIMENOrdering Facility: [facility] Address: [address] [place] [address] Performed By: #### 5 7021-8 ####[facility]ATORYCLIA [id number] [address] STATES [facility] Monocytes (Bld) [#/Vol] 0.53 10*3/uL Normal <0.87 [facility] Comment on above: Order Comment: Speci men Type: BLOOD SPECIMENOrdering Facility: [facility] Address: [address] [place] [address] Performed By: #### 5 7021-8 ####[facility]ATORYCLIA [id number] [address] Monocytes/100 WBC (Bld) 4.4 % Normal [facility] Comment on above: Order Comment: Speci men Type: BLOOD SPECIMENOrdering Facility: [facility] Address: [address] [place] [address] Performed By: #### 5 7021-8 ####[facility]ATORYCLIA [id number] [address] [place] Neutrophils (Bld) [#/Vol] 8.91 10*3/uL High 1.45-7.50 [facility] Comment on above: Order Comment: Speci men Type: BLOOD SPECIMENOrdering Facility: [facility] Address: [address] [place] [address] Performed By: #### 5 7021-8 ####[facility]ORYCLIA [id number] [address] Neutrophils/100 WBC (Bld) 74.5 % Normal [facility] Comment on above: Order Comment: Speci men Type: BLOOD SPECIMENOrdering Facility: [facility] Address: [address] [place] [address] Performed By: #### 5 7021-8 ####[facility]ATORYCLIA [id number] [address] [place] Nucleated RBC (Bld) [#/Vol] 10*3/uL Normal <0.01 [facility] Comment on above: Order Comment: Speci men Type: BLOOD SPECIMENOrdering Facility: [facility] Address: [address] [place] [address] Performed By: #### 5 7021-8 ####[facility]ATORYCLIA [id number] [address] Nucleated RBC/100 WBC (Bld) [Ratio] 0.0 /100 WBC Normal [facility] Comment on above: Order Comment: Speci men Type: BLOOD SPECIMENOrdering Facility: [facility] Address: [address] [place] [address] Performed By: #### 5 7021-8 ####[facility]ATORYCLIA [id number] [address] [place] Platelet mean volume (Bld) [Entitic vol] 10.4 fL Normal 9.0-12.7 [facility] Comment on above: Order Comment: Speci men Type: BLOOD SPECIMENOrdering Facility: [facility] Address: [address] [place] [address] Performed By: #### 5 7021-8 ####[facility]ORYCLIA [id number] [address] [place] Platelets (Bld) [#/Vol] 319 10*3/uL Normal 150-400 [facility] Comment on above: Order Comment: Speci men Type: BLOOD SPECIMENOrdering Facility: [facility] Address: [address] [place] [address] Performed By: #### 5 7021-8 ####[facility]ATORYCLIA [id number] [address] [place] [facility] RBC (Bld) [#/Vol] 3.29 10*6/uL Low 4.20-6.00 [facility] Comment on above: Order Comment: Speci men Type: BLOOD SPECIMENOrdering Facility: [facility] Address: [address] [place] [address] Performed By: #### 5 7021-8 ####[facility]ATORYCLIA [id number] [address] WBC (Bld) [#/Vol] 11.97 10*3/uL High 3.70-11.00 [facility] Comment on above: Order Comment: Speci men Type: BLOOD SPECIMENOrdering Facility: [facility] Address: [address] [place] [address] Performed By: #### 5 7021-8 ####[facility]ATORYCLIA [id number] [address] BRAIN WO IVCONon 08-02-19 CT BRAIN WO IVCON Normal [facility] Magnesium SerPl-mCncon 08-01 Magnesium [Mass/Vol] 2.4 mg/dL High 1.7-2.3 [facility] Comment on above: Order Comment: Speci men Type: BLOOD SPECIMENOrdering Facility: [facility] Address: [address] [place] [address] Performed By: #### 2 4321-2, 38574-1, 27561-8, 2777-1 ####[facility]ORATORYCLIA [id number] [address] [place] NURSING PROGon 08-01-2021 NURSING PROG Normal [facility] NUTRITIONon 08-01-2021 NUTRITION Normal [facility] Phosphate SerPl-mCncon 08-01 Phosphate [Mass/Vol] 3.3 mg/dL Normal 2.7-4.8 [facility] Comment on above: Order Comment: Speci men Type: BLOOD SPECIMENOrdering Facility: [facility] Address: [address] [place] [address] Performed By: #### 2 4321-2, 07906-2, 36853-3, 2777-1 ####[facility] LABORATORYCLIA [id number] [address] Prealbumin [Mass/Vol]on 07-06 Prealbumin Nephelometry [Mass/Vol] 30 mg/dL Normal - [facility] Comment on above: Order Comment: Speci men Type: BLOOD SPECIMENOrdering Facility: [facility] Address: [address] [place] [address] Performed By: #### 2 4321-2, 49325-6, 69219-1, 2777-1 ####[facility] LABORATORYCLIA [id number] [address] OF [facility] THERAPY NTon 08-01-2021 THERAPY NT Normal [facility] THERAPY NT Normal [facility] TYPE AND SCREENon 08-01-2021 ABO O Normal [facility] Comment on above: Order Comment: Speci men Type: BLOOD SPECIMENOrdering Facility: [facility] Address: [address] [place] [address] Performed By: #### T SCR ####[facility] B[facility]OD BANKCLIA [id number] [address] OF [place] HISTORICAL AB SCR STATUS Negative Normal [facility] Comment on above: Order Comment: Speci men Type: BLOOD SPECIMENOrdering Facility: [facility] Address: [address] [place] [address] Performed By: #### T SCR ####[facility] BLOOD BANKCLIA [id number] [address] [place] Rh Nom (Bld) Positive Normal [facility] Comment on above: Order Comment: Speci men Type: BLOOD SPECIMENOrdering Facility: [facility] Address: [address] [place] [address] Performed By: #### T SCR ####[facility] BLOOD BANKCLIA [id number] [address] OF [facility] TYPE AND SCREEN EXPIRATION 08/04/2021 23:59 Normal [facility] Comment on above: Order Comment: Speci men Type: BLOOD SPECIMENOrdering Facility: [facility] Address: [address] [place] [address] Performed By: #### T SCR ####[facility] BLOOD BANKCLIA [id number] [address] OF [facility] XR CHEST 1V FRONTALon 2021 XR CHEST 1V FRONTAL Normal [facility] aPTT PPPon 08-01-2021 aPTT Coag (PPP) [Time] 50.9 s High 23.0-32.4 [facility] Comment on above: Order Comment: Speci men Type: BLOOD SPECIMENOrdering Facility: [facility] Address: [address] [place] [address] Performed By: #### 1 4979-9 ####[facility] LABORATORYCLIA [id number] [address] STATES OF [facility] CBC W Auto Differential pane l (Bld)on 07-31-2021 Basophils (Bld) [#/Vol] 0.05 10*3/uL Normal <0.11 [facility] Comment on above: Order Comment: Speci men Type: BLOOD SPECIMENOrdering Facility: [facility] Address: [address] [place] [address] Performed By: #### 5 7021-8 ####[facility] LABORATORYCLIA [id number] [address] Basophils/100 WBC (Bld) 0.4 % Normal [facility] Comment on above: Order Comment: Speci men Type: BLOOD SPECIMENOrdering Facility: [facility] Address: [address] [address] Performed By: #### 5 7021-8 ####[facility] LABORATORYCLIA [id number] [address] [place] Differential cell count method Nom (Bld) Auto Normal [facility] Comment on above: Order Comment: Speci men Type: BLOOD SPECIMENOrdering Facility: [facility] Address: [address] [place] [address] Performed By: #### 5 7021-8 ####[facility] LABORATORYCLIA [id number] [place] [address] [place] Eosinophils (Bld) [#/Vol] 0.51 10*3/uL High <0.46 [facility] Comment on above: Order Comment: Speci men Type: BLOOD SPECIMENOrdering Facility: [facility] Address: [address] [place] [address] Performed By: #### 5 7021-8 ####[facility] LABORATORYCLIA [id number] [address] [place] Eosinophils/100 WBC (Bld) 4.5 % Normal [facility] Comment on above: Order Comment: Speci men Type: BLOOD SPECIMENOrdering Facility: [facility] Address: [address] [place] [address] Performed By: #### 5 7021-8 ####[facility] LABORATORYCLIA [id number] [address] [place] Erythrocyte distribution width (RBC) [Ratio] 17.5 % High 11.5-15.0 [facility] Comment on above: Order Comment: Speci men Type: BLOOD SPECIMENOrdering Facility: [facility] Address: [address] [place] [address] Performed By: #### 5 7021-8 ####[facility] LABORATORYCLIA [id number] [address] [place] Hematocrit (Bld) [Volume fraction] 30.4 % Low 39.0-51.0 [facility] Comment on above: Order Comment: Speci men Type: BLOOD SPECIMENOrdering Facility: [facility] Address: [address] [place] [address] Performed By: #### 5 7021-8 ####[facility] LABORATORYCLIA [id number] [address] [place] Hemoglobin (Bld) [Mass/Vol] 9.2 g/dL Low 13.0-17.0 [facility] Comment on above: Order Comment: Speci men Type: BLOOD SPECIMENOrdering Facility: [facility] Address: [address] [place] [address] Performed By: #### 5 7021-8 ####[facility] LABORATORYCLIA [id number] [address] IMMATURE GRAN % 0.5 % Normal [facility] Comment on above: Order Comment: Speci men Type: BLOOD SPECIMENOrdering Facility: [facility] Address: [address] [place] [address] Performed By: #### 5 7021-8 ####[facility] LABORATORYCLIA [id number] [address] IMMATURE GRAN ABS 0.06 k/uL Normal <0.10 [facility] Comment on above: Order Comment: Speci men Type: BLOOD SPECIMENOrdering Facility: [facility] Address: [address] [place] [address] Performed By: #### 5 7021-8 ####[facility] LABORATORYCLIA [id number] [address] [place] Lymphocytes (Bld) [#/Vol] 1.99 10*3/uL Normal 1.00-4.00 [facility] Comment on above: Order Comment: Speci men Type: BLOOD SPECIMENOrdering Facility: [facility] Address: [address] [place] [address] Performed By: #### 5 7021-8 ####[facility] LABORATORYCLIA [id number] [address] Lymphocytes/100 WBC (Bld) 17.6 % Normal [facility] Comment on above: Order Comment: Speci men Type: BLOOD SPECIMENOrdering Facility: [facility] Address: [address] [place] [address] Performed By: #### 5 7021-8 ####[facility] LABORATORYCLIA [id number] [address] STATES OF [facility] MCH (RBC) [Entitic mass] 28.4 pg Normal 26.0-34.0 [facility] Comment on above: Order Comment: Speci men Type: BLOOD SPECIMENOrdering Facility: [facility] Address: [address] [place] [address] Performed By: #### 5 7021-8 ####[facility] LABORATORYCLIA [id number] [address] [place] MCHC (RBC) [Mass/Vol] 30.3 g/dL Low 30.5-36.0 [facility] Comment on above: Order Comment: Speci men Type: BLOOD SPECIMENOrdering Facility: [facility] Address: [address] [place] [address] Performed By: #### 5 7021-8 ####[facility] LABORATORYCLIA [id number] [address] MCV (RBC) [Entitic vol] 93.8 fL Normal 80.0-100.0 [facility] Comment on above: Order Comment: Speci men Type: BLOOD SPECIMENOrdering Facility: [facility] Address: [address] [place] [address] Performed By: #### 5 7021-8 ####[facility] LABORATORYCLIA [id number] [address] Monocytes (Bld) [#/Vol] 0.57 10*3/uL Normal <0.87 [facility] Comment on above: Order Comment: Speci men Type: BLOOD SPECIMENOrdering Facility: [facility] Address: [address] [place] [address] Performed By: #### 5 7021-8 ####[facility] LABORATORYCLIA [id number] [address] [place] Monocytes/100 WBC (Bld) 5.0 % Normal [facility] Comment on above: Order Comment: Speci men Type: BLOOD SPECIMENOrdering Facility: [facility] Address: [address] [place] [address] Performed By: #### 5 7021-8 ####[facility] LABORATORYCLIA [id number] [address] [place] Neutrophils (Bld) [#/Vol] 8.12 10*3/uL High 1.45-7.50 [facility] Comment on above: Order Comment: Speci men Type: BLOOD SPECIMENOrdering Facility: [facility] Address: [address] [place] [address] Performed By: #### 5 7021-8 ####[facility] LABORATORYCLIA [id number] [address] Neutrophils/100 WBC (Bld) 72.0 % Normal [facility] Comment on above: Order Comment: Speci men Type: BLOOD SPECIMENOrdering Facility: [facility] Address: [address] [place] [address] Performed By: #### 5 7021-8 ####[facility] LABORATORYCLIA [id number] [address] [place] Nucleated RBC (Bld) [#/Vol] 10*3/uL Normal <0.01 [facility] Comment on above: Order Comment: Speci men Type: BLOOD SPECIMENOrdering Facility: [facility] Address: [address] [place] [address] Performed By: #### 5 7021-8 ####[facility] LABORATORYCLIA [id number] [address] OF [place] Nucleated RBC/100 WBC (Bld) [Ratio] 0.0 /100 WBC Normal [facility] Comment on above: Order Comment: Speci men Type: BLOOD SPECIMENOrdering Facility: [facility] Address: [address] Performed By: #### 5 7021-8 ####[facility] LABORATORYCLIA [id number] [address] Platelet mean volume (Bld) [Entitic vol] 10.9 fL Normal 9.0-12.7 [facility] Comment on above: Order Comment: Speci men Type: BLOOD SPECIMENOrdering Facility: [facility] Address: [address] [place] [address] Performed By: #### 5 7021-8 ####[facility] LABORATORYCLIA [id number] [address] [place] Platelets (Bld) [#/Vol] 303 10*3/uL Normal 150-400 [facility] Comment on above: Order Comment: Speci men Type: BLOOD SPECIMENOrdering Facility: [facility] Address: [address] [place] [address] Performed By: #### 5 7021-8 ####[facility] LABORATORYCLIA [id number] [address] [place] RBC (Bld) [#/Vol] 3.24 10*6/uL Low 4.20-6.00 [facility] Comment on above: Order Comment: Speci men Type: BLOOD SPECIMENOrdering Facility: [facility] Address: [address] [place], [place] [address] Performed By: #### 5 7021-8 ####[facility] LABORATORYCLIA [id number] [address] [place] WBC (Bld) [#/Vol] 11.30 10*3/uL High 3.70-11.00 [facility] Comment on above: Order Comment: Speci men Type: BLOOD SPECIMENOrdering Facility: [facility] Address: [address] [place] [address] Performed By: #### 5 7021-8 ####[facility] LABORATORYCLIA [id number] [address] OF [facility] NURSING PROGon 07-31-2021 NURSING PROG Normal [facility] aPTT PPPon 07-31-2021 aPTT Coag (PPP) [Time] 64.9 s High 23.0-32.4 [facility] Comment on above: Order Comment: Speci men Type: BLOOD SPECIMENOrdering Facility: [facility] Address: [address] [place] [address] Performed By: #### 1 4979-9 ####[facility] LABORATORYCLIA [id number] [address] [place] ALLIED HEALTHon 07-30-2021 ALLIED HEALTH Normal [facility] Bacteria CSF Culton 07-31-19 22 Bacteria identified Cx Nom (CSF) CULTURE, CSF: No growth 14 days GRAM STAIN: No organisms seen Few Mononuclear cells Rare Polymorphonuclear leukocytes Gram stain performed on cytospun specimen. Normal [facility] Comment on above: Performed By: #### 6 06-4 ####[facility] LABORATORYCLIA [id number] [place] [address] [place] Basic metabolic 2000 panelon 07-30-2021 Anion gap [Moles/Vol] 9 mmol/L Normal 9-18 [facility] Comment on above: Order Comment: Speci men Type: BLOOD SPECIMENOrdering Facility: [facility] Address: [address] [place] [address] Performed By: #### 2 777-1, 58018-5, ####[facility] LABORATORYCLIA [id number] [place] [address] [place] Calcium [Mass/Vol] 8.9 mg/dL Normal 8.5-10.2 [facility] Comment on above: Order Comment: Speci men Type: BLOOD SPECIMENOrdering Facility: [facility] Address: [address] [place] [address] Performed By: #### 2 777-1, 75332-9, ####[facility] LABORATORYCLIA [id number] [address] [place] Chloride [Moles/Vol] 95 mmol/L Low 97-105 [facility] Comment on above: Order Comment: Speci men Type: BLOOD SPECIMENOrdering Facility: [facility] Address: [address] [place] [address] Performed By: #### 2 777-1, 89919-0, ####[facility] LABORATORYCLIA [id number] [address] [place] CO2 [Moles/Vol] 28 mmol/L Normal 22-30 [facility] Comment on above: Order Comment: Speci men Type: BLOOD SPECIMENOrdering Facility: [facility] Address: [address] [place] [address] Performed By: #### 2 777-1, , ####[facility] LABORATORYCLIA [id number] [address] OF [facility] Creatinine [Mass/Vol] 0.67 mg/dL Low 0.73-1.22 [facility] Comment on above: Order Comment: Speci men Type: BLOOD SPECIMENOrdering Facility: [facility] Address: [address] [place] [address] Performed By: #### 2 777-1, , ####[facility] LABORATORYCLIA [id number] [address] ESTIMATED GLOMERULAR FILTRATION RATE 101 mL/min/1.73m??? Normal >=60 [facility] Comment on above: Order Comment: Speci men Type: BLOOD SPECIMENOrdering Facility: [facility] Address: [address] [place] [address] Result Comment: Luzmaria mated Glomerular Filtration Rate [...] actual GFR. Performed By: #### 2 777-1, 29480-2, ####[facility] LABORATORYCLIA [id number] [place] [address] [place] Glucose [Mass/Vol] 125 mg/dL High 74-99 [facility] Comment on above: Order Comment: Speci men Type: BLOOD SPECIMENOrdering Facility: [facility] Address: [address] [place] [address] Result Comment: The [place] [employer] (ADA) provides guidance for cutoff [...] Standards of Medical Care in Diabetes 2016, [place] [employer]. Diabetes Care. 2016.39(Suppl 1). Performed By: #### 2 777-1, 45215-9, ####[facility] LABORATORYCLIA [id number] [place] [address] [place] Potassium [Moles/Vol] 3.9 mmol/L Normal 3.7-5.1 [facility] Comment on above: Order Comment: Speci men Type: BLOOD SPECIMENOrdering Facility: [facility] Address: [address] Performed By: #### 2 777-1, 62023-0, ####[facility] LABORATORYCLIA [id number] [place] [address] [place] Sodium [Moles/Vol] 132 mmol/L Low 136-144 [facility] Comment on above: Order Comment: Speci men Type: BLOOD SPECIMENOrdering Facility: [facility] Address: [address] [place] [address] Performed By: #### 2 777-1, 17415-0, ####[facility] LABORATORYCLIA [id number] [address] STATES [facility] Urea nitrogen [Mass/Vol] 38 mg/dL High 9- [facility] Comment on above: Order Comment: Speci men Type: BLOOD SPECIMENOrdering Facility: [facility] Address: [address] [place] [address] Performed By: #### 2 777-1, 31409-3, ####[facility] LABORATORYCLIA [id number] [address] [place] CBC W Auto Differential pane l (Bld)on 07-30-2021 Basophils (Bld) [#/Vol] 0.04 10*3/uL Normal <0.11 [facility] Comment on above: Order Comment: Speci men Type: BLOOD SPECIMENOrdering Facility: [facility] Address: [address] [place] [address] Performed By: #### 5 7021-8 ####[facility] LABORATORYCLIA [id number] [address] [place] Basophils/100 WBC (Bld) 0.4 % Normal [facility] Comment on above: Order Comment: Speci men Type: BLOOD SPECIMENOrdering Facility: [facility] Address: [address] [place] [address] Performed By: #### 5 7021-8 ####[facility] LABORATORYCLIA [id number] [address] Differential cell count method Nom (Bld) Auto Normal [facility] Comment on above: Order Comment: Speci men Type: BLOOD SPECIMENOrdering Facility: [facility] Address: [address] [place] [address] Performed By: #### 5 7021-8 ####[facility] LABORATORYCLIA [id number] [place] [address] [place] Eosinophils (Bld) [#/Vol] 0.30 10*3/uL Normal <0.46 [facility] Comment on above: Order Comment: Speci men Type: BLOOD SPECIMENOrdering Facility: [facility] Address: [address] [place] [address] Performed By: #### 5 7021-8 ####[facility] LABORATORYCLIA [id number] [address] Eosinophils/100 WBC (Bld) 2.7 % Normal [facility] Comment on above: Order Comment: Speci men Type: BLOOD SPECIMENOrdering Facility: [facility] Address: [address] [place] [address] Performed By: #### 5 7021-8 ####[facility] LABORATORYCLIA [id number] [address] [place] Erythrocyte distribution width (RBC) [Ratio] 17.2 % High 11.5-15.0 [facility] Comment on above: Order Comment: Speci men Type: BLOOD SPECIMENOrdering Facility: [facility] Address: [address] [place] [address] Performed By: #### 5 7021-8 ####[facility] LABORATORYCLIA [id number] [address] [place] Hematocrit (Bld) [Volume fraction] 30.8 % Low 39.0-51.0 [facility] Comment on above: Order Comment: Speci men Type: BLOOD SPECIMENOrdering Facility: [facility] Address: [address] [place] [address] Performed By: #### 5 7021-8 ####[facility] LABORATORYCLIA [id number] [address] [place] Hemoglobin (Bld) [Mass/Vol] 9.4 g/dL Low 13.0-17.0 [facility] Comment on above: Order Comment: Speci men Type: BLOOD SPECIMENOrdering Facility: [facility] Address: [address] [place] [address] Performed By: #### 5 7021-8 ####[facility] LABORATORYCLIA [id number] [address] IMMATURE GRAN % 0.5 % Normal [facility] Comment on above: Order Comment: Speci men Type: BLOOD SPECIMENOrdering Facility: [facility] Address: [address] [place] [address] Performed By: #### 5 7021-8 ####[facility] LABORATORYCLIA [id number] [address] IMMATURE GRAN ABS 0.06 k/uL Normal <0.10 [facility] Comment on above: Order Comment: Speci men Type: BLOOD SPECIMENOrdering Facility: [facility] Address: [address] [place] [address] Performed By: #### 5 7021-8 ####[facility] LABORATORYCLIA [id number] [address] [place] Lymphocytes (Bld) [#/Vol] 1.68 10*3/uL Normal 1.00-4.00 [facility] Comment on above: Order Comment: Speci men Type: BLOOD SPECIMENOrdering Facility: [facility] Address: [address] [place] [address] Performed By: #### 5 7021-8 ####[facility] LABORATORYCLIA [id number] [address] Lymphocytes/100 WBC (Bld) 15.3 % Normal [facility] Comment on above: Order Comment: Speci men Type: BLOOD SPECIMENOrdering Facility: [facility] Address: [address] [place] [address] Performed By: #### 5 7021-8 ####[facility] LABORATORYCLIA [id number] [address] [place] MCH (RBC) [Entitic mass] 28.0 pg Normal 26.0-34.0 [facility] Comment on above: Order Comment: Speci men Type: BLOOD SPECIMENOrdering Facility: [facility] Address: [address] [place] [address] Performed By: #### 5 7021-8 ####[facility] LABORATORYCLIA [id number] [address] STATES [facility] MCHC (RBC) [Mass/Vol] 30.5 g/dL Normal 30.5-36.0 [facility] Comment on above: Order Comment: Speci men Type: BLOOD SPECIMENOrdering Facility: [facility] Address: [address] [place] [address] Performed By: #### 5 7021-8 ####[facility] LABORATORYCLIA [id number] [address] MCV (RBC) [Entitic vol] 91.7 fL Normal 80.0-100.0 [facility] Comment on above: Order Comment: Speci men Type: BLOOD SPECIMENOrdering Facility: [facility] Address: [address] [place] [address] Performed By: #### 5 7021-8 ####[facility] LABORATORYCLIA [id number] [address] Monocytes (Bld) [#/Vol] 0.53 10*3/uL Normal <0.87 [facility] Comment on above: Order Comment: Speci men Type: BLOOD SPECIMENOrdering Facility: [facility] Address: [address] [place] [address] Performed By: #### 5 7021-8 ####[facility] LABORATORYCLIA [id number] [address] Monocytes/100 WBC (Bld) 4.8 % Normal [facility] Comment on above: Order Comment: Speci men Type: BLOOD SPECIMENOrdering Facility: [facility] Address: [address] [place] [address] Performed By: #### 5 7021-8 ####[facility] LABORATORYCLIA [id number] [address] [place] Neutrophils (Bld) [#/Vol] 8.39 10*3/uL High 1.45-7.50 [facility] Comment on above: Order Comment: Speci men Type: BLOOD SPECIMENOrdering Facility: [facility] Address: [address] [address] Performed By: #### 5 7021-8 ####[facility] LABORATORYCLIA [id number] [address] Neutrophils/100 WBC (Bld) 76.3 % Normal [facility] Comment on above: Order Comment: Speci men Type: BLOOD SPECIMENOrdering Facility: [facility] Address: [address] [address] Performed By: #### 5 7021-8 ####[facility] LABORATORYCLIA [id number] [address] [place] Nucleated RBC (Bld) [#/Vol] 10*3/uL Normal <0.01 [facility] Comment on above: Order Comment: Speci men Type: BLOOD SPECIMENOrdering Facility: [facility] Address: [address] [address] Performed By: #### 5 7021-8 ####[facility] LABORATORYCLIA [id number] [address] Nucleated RBC/100 WBC (Bld) [Ratio] 0.0 /100 WBC Normal [facility] Comment on above: Order Comment: Speci men Type: BLOOD SPECIMENOrdering Facility: [facility] Address: [address] [address] Performed By: #### 5 7021-8 ####[facility] LABORATORYCLIA [id number] [address] Platelet mean volume (Bld) [Entitic vol] 10.9 fL Normal 9.0-12.7 [facility] Comment on above: Order Comment: Speci men Type: BLOOD SPECIMENOrdering Facility: [facility] Address: [address] [place] [address] Performed By: #### 5 7021-8 ####[facility] LABORATORYCLIA [id number] [address] [place] Platelets (Bld) [#/Vol] 287 10*3/uL Normal 150-400 [facility] Comment on above: Order Comment: Speci men Type: BLOOD SPECIMENOrdering Facility: [facility] Address: [address] [place] [address] Performed By: #### 5 7021-8 ####[facility] LABORATORYCLIA [id number] [address] STATES OF [facility] RBC (Bld) [#/Vol] 3.36 10*6/uL Low 4.20-6.00 [facility] Comment on above: Order Comment: Speci men Type: BLOOD SPECIMENOrdering Facility: [facility] Address: [address] [place] [address] Performed By: #### 5 7021-8 ####[facility] LABORATORYCLIA [id number] [address] OF [facility] WBC (Bld) [#/Vol] 11.00 10*3/uL Normal 3.70-11.00 [facility] Comment on above: Order Comment: Speci men Type: BLOOD SPECIMENOrdering Facility: [facility] Address: [address] [place] [address] Performed By: #### 5 7021-8 ####[facility] LABORATORYCLIA [id number] [address] OF [facility] CSF MANUAL DIFFon 07-30-2021 DIF TTL, CSF 100 cells counted Normal [facility] Comment on above: Order Comment: Speci men Type: CEREBROSPINAL FLUIDOrdering Facility: [facility] Address: [address] [place] [address] Performed By: #### L [id number], [id number], [id number] ####[facility] LABORATORYCLIA [id number] [address] EOSIN%, CSF 0 % Normal [facility] Comment on above: Order Comment: Speci men Type: CEREBROSPINAL FLUIDOrdering Facility: ACCESS [facility] Address: [address] [place] [address] Performed By: #### L [id number], [id number], 18924-5 ####[facility]ORATORYCLIA [id number] [place] [address] [place] LYMPH%, CSF 75 % Normal 50-90 [facility] Comment on above: Order Comment: Speci men Type: CEREBROSPINAL FLUIDOrdering Facility: [facility] Address: [address] [place] [address] Performed By: #### L [id number], [id number], 07919-4 ####[facility]ATORYCLIA [id number] [place] [address] [place] MACRO%, CSF 9 % High <1 [facility] Comment on above: Order Comment: Speci men Type: CEREBROSPINAL FLUIDOrdering Facility: [facility] Address: [address] [place] [address] Performed By: #### L [id number], FDP0010, 78033-2 ####[facility]ORATORYCLIA [id number] [place] [address] [place] MONO%, CSF 10 % Normal 10-50 [facility] Comment on above: Order Comment: Speci men Type: CEREBROSPINAL FLUIDOrdering Facility: [facility] Address: [address] [place] [address] Performed By: #### L [id number], ZWG0595, 68484-7 ####[facility]ORATORYCLIA [id number] [place] [address] [place] OTHER CL%, CSF 4 % Normal [facility] Comment on above: Order Comment: Speci men Type: CEREBROSPINAL FLUIDOrdering Facility: [facility] Address: [address] [place] [address] Result Comment: Path review to follow. Performed By: #### L [id number], RUX3979, 02691-7 ####[facility]ATORYCLIA [id number] [place] [address] [place] REAC LYMPH %, CSF 2 % Normal [facility] Comment on above: Order Comment: Speci men Type: CEREBROSPINAL FLUIDOrdering Facility: [facility] Address: [address] [place] [address] Performed By: #### L [id number], DVU8590, 08136-4 ####[facility]ORATORYCLIA [id number] [address] [place] CSF PATHOLOGIST INTERP (LAB REFLEX ORDER-NO BILL)on 07-30-2021 CSF STAFF REVIEW Negative Normal [facility] Comment on above: Order Comment: Speci men Type: CEREBROSPINAL FLUIDOrdering Facility: [facility] Address: [address] [place] [address] Performed By: #### L [id number], HHB4866, 53653-8 ####[facility] LABORATORYCLIA [id number] [address] Pathologist name Reviewed by Eloise rebolledo MD Normal [facility] Comment on above: Order Comment: Speci men Type: CEREBROSPINAL FLUIDOrdering Facility: [facility] Address: [address] [place] [address] Performed By: #### L [id number], OYP0857, 27093-6 ####[facility] LABORATORYCLIA [id number] [address] [place] CT BRAIN WO IVCONon 07-31-19 CT BRAIN WO IVCON Normal [facility] Cell count panel (CSF)on Clarity (CSF) Clear Normal Clear [facility] Comment on above: Order Comment: Speci men Type: CEREBROSPINAL FLUIDOrdering Facility: [facility] Address: [address] [place] [address] Performed By: #### L [id number], YTZ0050, 99265-3 ####[facility] LABORATORYCLIA [id number] [address] [place] Clarity (Unsp spec) Clear Normal Clear [facility] Comment on above: Order Comment: Speci men Type: CEREBROSPINAL FLUIDOrdering Facility: [facility] Address: [address] [place] [address] Performed By: #### L ZO7117, ZSC5620, 74777-1 ####[facility]ATORYCLIA [id number] [address] Color (CSF) Colorless Normal Colorless [facility] Comment on above: Order Comment: Speci men Type: CEREBROSPINAL FLUIDOrdering Facility: [facility] Address: [address] [place], [place] [address] Performed By: #### L [id number], EKA5369, 27284-7 ####[facility]ATORYCLIA [id number] [address] Color (Spun CSF) Colorless Normal Colorless [facility] Comment on above: Order Comment: Speci men Type: CEREBROSPINAL FLUIDOrdering Facility: [facility] Address: [address] [place] [address] Performed By: #### L [id number], VDB5764, 51916-5 ####[facility] LABORATORYCLIA [id number] [address] CSF TUBE [employer] Normal [facility] Comment on above: Order Comment: Speci men Type: CEREBROSPINAL FLUIDOrdering Facility: [facility] Address: [address] [place] [address] Performed By: #### L [id number], JKQ3162, 83261-3 ####[facility] LABORATORYCLIA [id number] [address] RBC Manual cnt (CSF) [#/Vol] 9 cells/uL High 0-5 [facility] Comment on above: Order Comment: Speci men Type: CEREBROSPINAL FLUIDOrdering Facility: [facility] Address: [address] [place] [address] Performed By: #### L [id number], TBL1728, 22682-5 ####[facility]ATORYCLIA [id number] [address] WBC Manual cnt (CSF) [#/Vol] 8 cells/uL High 0-5 [facility] Comment on above: Order Comment: Speci men Type: CEREBROSPINAL FLUIDOrdering Facility: [facility] Address: [address] [place] [address] Performed By: #### L ZK4377, WES2461, 02680-2 ####[facility] LABORATORYCLIA [id number] [place] [address] [place] Glucose CSF-mCncon Glucose (CSF) [Mass/Vol] 65 mg/dL Normal 40-70 [facility] Comment on above: Order Comment: Speci men Type: CEREBROSPINAL FLUIDOrdering Facility: [facility] Address: [address] [place] [address] Result Comment: Lumb ar CSF glucose values of healthy patients are approximately 60% of the plasma values and must always be compared with a concurrently measured plasma value for adequate clinical interpretation.References: 1. Glucose HK (GLUC3) [package insert V 12.0 Qatari]. [employer], [place], [place]. September 2015. 2. Michelle Moore, Loki HGarfield (2015). Chapter 7: Glucose and Lactate. F. Irina rose al.(eds.), Cerebrospinal Fluid in Clinical Neurology. [place]: [employer]. Performed By: #### 2 342-4, 2880-3 ####[facility]ORATORYCLIA [id number] [place] [address] [place] Magnesium SerPl-ncon 07-30 Magnesium [Mass/Vol] 2.5 mg/dL High 1.7-2.3 [facility] Comment on above: Order Comment: Speci men Type: BLOOD SPECIMENOrdering Facility: [facility] Address: [address] [place] [address] Performed By: #### 2 777-1, 82084-1, 96160-0 ####[facility]ORATORYCLIA [id number] [place] [address] [place] NURSING PROGon 07-30-2021 NURSING PROG Normal [facility] Phosphate SerPl-mCncon 07-30 Phosphate [Mass/Vol] 2.4 mg/dL Low 2.7-4.8 [facility] Comment on above: Order Comment: Speci men Type: BLOOD SPECIMENOrdering Facility: [facility] Address: [address] [place] [address] Performed By: #### 2 777-1, 24385-4, 85467-7 ####[facility]ORATORYCLIA [id number] [place] [address] [place] Prot CSF-mCncon 07-30-2021 Protein (CSF) [Mass/Vol] 50 mg/dL High 15-45 [facility] Comment on above: Order Comment: Speci men Type: CEREBROSPINAL FLUIDOrdering Facility: [facility] Address: [address] [place] [address] Performed By: #### 2 342-4, 2880-3 ####[facility]ORATORYCLIA [id number] [address] OF [facility] aPTT PPPon 07-30-2021 aPTT Coag (PPP) [Time] 64.1 s High 23.0-32.4 [facility] Comment on above: Order Comment: Speci men Type: BLOOD SPECIMENOrdering Facility: [facility] Address: [address] [place] [address] Performed By: #### 1 4979-9 ####[facility]ORATORYCLIA [id number] [address] Bacteria CSF Culton 07-30-19 22 Bacteria identified Cx Nom (CSF) CULTURE, CSF: No growth 14 days GRAM STAIN: No cells or organisms seen Gram stain performed on cytospun specimen. Gram stain confirmed by microbiology Normal [facility] Comment on above: Performed By: #### 6 06-4 ####[facility]ORATORYCLIA [id number] [address] [place] CASE MANAGEMon 07-29-2021 CASE MANAGEM Normal [facility] CBC W Auto Differential pane l (Bld)on 07-29-2021 Basophils (Bld) [#/Vol] 0.03 10*3/uL Normal <0.11 [facility] Comment on above: Order Comment: Speci men Type: BLOOD SPECIMENOrdering Facility: [facility] Address: [address] [place] [address] Performed By: #### 5 7021-8 ####[facility]ATORYCLIA [id number] [address] [place] Basophils/100 WBC (Bld) 0.3 % Normal [facility] Comment on above: Order Comment: Speci men Type: BLOOD SPECIMENOrdering Facility: [facility] Address: [address] [place] [address] Performed By: #### 5 7021-8 ####[facility]ORATORYCLIA [id number] [address] Differential cell count method Nom (Bld) Auto Normal [facility] Comment on above: Order Comment: Speci men Type: BLOOD SPECIMENOrdering Facility: [facility] Address: [address] [place] [address] Performed By: #### 5 7021-8 ####[facility]ORATORYCLIA [id number] [address] [place] Eosinophils (Bld) [#/Vol] 0.40 10*3/uL Normal <0.46 [facility] Comment on above: Order Comment: Speci men Type: BLOOD SPECIMENOrdering Facility: [facility] Address: [address] [place] [address] Performed By: #### 5 7021-8 ####[facility]ORATORYCLIA [id number] [address] STATES [facility] Eosinophils/100 WBC (Bld) 3.9 % Normal [facility] Comment on above: Order Comment: Speci men Type: BLOOD SPECIMENOrdering Facility: [facility] Address: [address] [place] [address] Performed By: #### 5 7021-8 ####[facility]ATORYCLIA [id number] [address] STATES [facility] Erythrocyte distribution width (RBC) [Ratio] 17.1 % High 11.5-15.0 [facility] Comment on above: Order Comment: Speci men Type: BLOOD SPECIMENOrdering Facility: [facility] Address: [address] [place] [address] Performed By: #### 5 7021-8 ####[facility]ORATORYCLIA [id number] [address] OF [facility] Hematocrit (Bld) [Volume fraction] 32.0 % Low 39.0-51.0 [facility] Comment on above: Order Comment: Speci men Type: BLOOD SPECIMENOrdering Facility: [facility] Address: [address] [place] [address] Performed By: #### 5 7021-8 ####[facility]ORATORYCLIA [id number] [address] OF [facility] Hemoglobin (Bld) [Mass/Vol] 9.7 g/dL Low 13.0-17.0 [facility] Comment on above: Order Comment: Speci men Type: BLOOD SPECIMENOrdering Facility: [facility] Address: [address] [place] [address] Performed By: #### 5 7021-8 ####[facility]ORATORYCLIA [id number] [address] IMMATURE GRAN % 0.6 % Normal [facility] Comment on above: Order Comment: Speci men Type: BLOOD SPECIMENOrdering Facility: [facility] Address: [address] [place] [address] Performed By: #### 5 7021-8 ####[facility]ORATORYCLIA [id number] [address] IMMATURE GRAN ABS 0.06 k/uL Normal <0.10 [facility] Comment on above: Order Comment: Speci men Type: BLOOD SPECIMENOrdering Facility: [facility] Address: [address] [place] [address] Performed By: #### 5 7021-8 ####[facility] LABORATORYCLIA [id number] [address] STATES OF [facility] Lymphocytes (Bld) [#/Vol] 1.96 10*3/uL Normal 1.00-4.00 [facility] Comment on above: Order Comment: Speci men Type: BLOOD SPECIMENOrdering Facility: [facility] Address: [address] [place] [address] Performed By: #### 5 7021-8 ####[facility]ORATORYCLIA [id number] [address] Lymphocytes/100 WBC (Bld) 19.0 % Normal [facility] Comment on above: Order Comment: Speci men Type: BLOOD SPECIMENOrdering Facility: [facility] Address: [address] [place] [address] Performed By: #### 5 7021-8 ####[facility]ORATORYCLIA [id number] [address] STATES OF [facility] MCH (RBC) [Entitic mass] 28.0 pg Normal 26.0-34.0 [facility] Comment on above: Order Comment: Speci men Type: BLOOD SPECIMENOrdering Facility: [facility] Address: [address] [place] [address] Performed By: #### 5 7021-8 ####[facility]ORATORYCLIA [id number] [address] [place] MCHC (RBC) [Mass/Vol] 30.3 g/dL Low 30.5-36.0 [facility] Comment on above: Order Comment: Speci men Type: BLOOD SPECIMENOrdering Facility: [facility] Address: [address] [place] [address] Performed By: #### 5 7021-8 ####[facility]ORATORYCLIA [id number] [address] MCV (RBC) [Entitic vol] 92.5 fL Normal 80.0-100.0 [facility] Comment on above: Order Comment: Speci men Type: BLOOD SPECIMENOrdering Facility: [facility] Address: [address] [address] Performed By: #### 5 7021-8 ####[facility]ORATORYCLIA [id number] [place] [address] [place] Monocytes (Bld) [#/Vol] 0.53 10*3/uL Normal <0.87 [facility] Comment on above: Order Comment: Speci men Type: BLOOD SPECIMENOrdering Facility: [facility] Address: [address] [place] [address] Performed By: #### 5 7021-8 ####[facility] LABORATORYCLIA [id number] [address] [place] Monocytes/100 WBC (Bld) 5.2 % Normal [facility] Comment on above: Order Comment: Speci men Type: BLOOD SPECIMENOrdering Facility: [facility] Address: [address] [place] [address] Performed By: #### 5 7021-8 ####[facility]ORATORYCLIA [id number] [place] [address] [place] Neutrophils (Bld) [#/Vol] 7.31 10*3/uL Normal 1.45-7.50 [facility] Comment on above: Order Comment: Speci men Type: BLOOD SPECIMENOrdering Facility: [facility] Address: [address] [place] [address] Performed By: #### 5 7021-8 ####[facility]ORATORYCLIA [id number] [address] [place] Neutrophils/100 WBC (Bld) 71.0 % Normal [facility] Comment on above: Order Comment: Speci men Type: BLOOD SPECIMENOrdering Facility: [facility] Address: [address] [place] [address] Performed By: #### 5 7021-8 ####[facility]ATORYCLIA [id number] [place] [address] [place] Nucleated RBC (Bld) [#/Vol] 10*3/uL Normal <0.01 [facility] Comment on above: Order Comment: Speci men Type: BLOOD SPECIMENOrdering Facility: [facility] Address: [address] [place] [address] Performed By: #### 5 7021-8 ####[facility]ORATORYCLIA [id number] [address] OF [facility] Nucleated RBC/100 WBC (Bld) [Ratio] 0.0 /100 WBC Normal [facility] Comment on above: Order Comment: Speci men Type: BLOOD SPECIMENOrdering Facility: [facility] Address: [address] [place] [address] Performed By: #### 5 7021-8 ####[facility]ORATORYCLIA [id number] [address] [place] Platelet mean volume (Bld) [Entitic vol] 11.2 fL Normal 9.0-12.7 [facility] Comment on above: Order Comment: Speci men Type: BLOOD SPECIMENOrdering Facility: [facility] Address: [address] [place] [address] Performed By: #### 5 7021-8 ####[facility]ORATORYCLIA [id number] [address] [place] Platelets (Bld) [#/Vol] 276 10*3/uL Normal 150-400 [facility] Comment on above: Order Comment: Speci men Type: BLOOD SPECIMENOrdering Facility: [facility] Address: [address] Performed By: #### 5 7021-8 ####[facility]ORATORYCLIA [id number] [address] [place] RBC (Bld) [#/Vol] 3.46 10*6/uL Low 4.20-6.00 [facility] Comment on above: Order Comment: Speci men Type: BLOOD SPECIMENOrdering Facility: [facility] Address: [address] [place], [place] [address] Performed By: #### 5 7021-8 ####[facility]ORATORYCLIA [id number] [place] [address] [place] WBC (Bld) [#/Vol] 10.29 10*3/uL Normal 3.70-11.00 [facility] Comment on above: Order Comment: Speci men Type: BLOOD SPECIMENOrdering Facility: [facility] Address: [address] [place] [address] Performed By: #### 5 7021-8 ####[facility]ORATORYCLIA [id number] [address] OF [facility] NURSING PROGon 07-29-2021 NURSING PROG Normal [facility] THERAPY NTon 07-29-2021 THERAPY NT Normal [facility] aPTT PPPon 07-29-2021 aPTT Coag (PPP) [Time] 59.2 s High 23.0-32.4 [facility] Comment on above: Order Comment: Speci men Type: BLOOD SPECIMENOrdering Facility: [facility] Address: [address] [place] [address] Performed By: #### 1 4979-9 ####[facility]ORATORYCLIA [id number] [address] OF [facility] ALLIED HEALTHon 07-28-2021 ALLIED HEALTH Normal [facility] Basic metabolic 2000 panelon 07-28-2021 Anion gap [Moles/Vol] 7 mmol/L Low 9-18 [facility] Comment on above: Order Comment: Speci men Type: BLOOD SPECIMENOrdering Facility: [facility] Address: [address] [place] [address] Performed By: #### 1 4338-8, 36640-5, 2777-1, 45870-4 ####[facility]ORATORYCLIA [id number] [address] Calcium [Mass/Vol] 9.0 mg/dL Normal 8.5-10.2 [facility] Comment on above: Order Comment: Speci men Type: BLOOD SPECIMENOrdering Facility: [facility] Address: [address] [place] [address] Performed By: #### 1 4338-8, 43154-9, 2777-1, 12318-9 ####[facility]ORATORYCLIA [id number] [place] [address] [place] Chloride [Moles/Vol] 94 mmol/L Low 97-105 [facility] Comment on above: Order Comment: Speci men Type: BLOOD SPECIMENOrdering Facility: [facility] Address: [address] [place] [address] Performed By: #### 1 4338-8, 86627-9, 2777-1, 06568-2 ####[facility]ORATORYCLIA [id number] [address] STATES OF [facility] CO2 [Moles/Vol] 31 mmol/L High 22-30 [facility] Comment on above: Order Comment: Speci men Type: BLOOD SPECIMENOrdering Facility: [facility] Address: [address] [place] [address] Performed By: #### 1 4338-8, 77290-9, 2777-1, 73719-4 ####[facility]ORATORYCLIA [id number] [address] STATES OF [facility] Creatinine [Mass/Vol] 0.75 mg/dL Normal 0.73-1.22 [facility] Comment on above: Order Comment: Speci men Type: BLOOD SPECIMENOrdering Facility: [facility] Address: [address] [place] [address] Performed By: #### 1 4338-8, 30401-6, 2777-1, 44038-5 ####[facility] LABORATORYCLIA [id number] [address] ESTIMATED GLOMERULAR FILTRATION RATE 98 mL/min/1.73m??? Normal >=60 [facility] Comment on above: Order Comment: Speci men Type: BLOOD SPECIMENOrdering Facility: [facility] Address: [address] [place] [address] Result Comment: Luzmaria mated Glomerular Filtration Rate [...] actual GFR. Performed By: #### 1 4338-8, 64054-1, 2776-, 43686-0 ####[facility]ORATORYCLIA [id number] [place] [address] [place] Glucose [Mass/Vol] 122 mg/dL High 74-99 [facility] Comment on above: Order Comment: Shira feldman Type: BLOOD SPECIMENOrdering Facility: [facility] Address: [address] [id number] Result Comment: The [place] Diabetes Association (ADA) provides guidance for cutoff [...] Standards of Medical Care in Diabetes 2016, [place] [employer]. Diabetes Care. 2016.39(Suppl 1). Performed By: #### 1 4338-8, , 2776-05, 80140-4 ####[facility] LABORATORYCLIA [id number] [place] [address] [place] Potassium [Moles/Vol] 4.0 mmol/L Normal 3.7-5.1 [facility] Comment on above: Order Comment: Shira feldman Type: BLOOD SPECIMENOrdering Facility: [facility] Address: [address] [place] [address] Performed By: #### 1 4338-8, 39746-8, 277-, 36992-9 ####[facility]ORATORYCLIA [id number] [place] [address] [place] Sodium [Moles/Vol] 132 mmol/L Low 136-144 [facility] Comment on above: Order Comment: Speci men Type: BLOOD SPECIMENOrdering Facility: [facility] Address: [address] [place] [address] Performed By: #### 1 4338-8, 18681-7, 2777-1, 65877-9 ####[facility]ORATORYCLIA [id number] [place] [address] [place] Urea nitrogen [Mass/Vol] 34 mg/dL High 01-28 [facility] Comment on above: Order Comment: Speci men Type: BLOOD SPECIMENOrdering Facility: [facility] Address: [address] [place] [address] Performed By: #### 1 4338-8, 52250-3, 2777-1, 56573-3 ####[facility]ORATORYCLIA [id number] [address] [place] CBC W Auto Differential pane l (Bld)on 07-28-2021 Basophils (Bld) [#/Vol] 0.04 10*3/uL Normal <0.11 [facility] Comment on above: Order Comment: Speci men Type: BLOOD SPECIMENOrdering Facility: [facility] Address: [address] [place] [address] Performed By: #### 5 7021-8 ####[facility]ORATORYCLIA [id number] [address] [place] Basophils/100 WBC (Bld) 0.5 % Normal [facility] Comment on above: Order Comment: Speci men Type: BLOOD SPECIMENOrdering Facility: [facility] Address: [address] [place] [address] Performed By: #### 5 7021-8 ####[facility]ORATORYCLIA [id number] [address] [place] Differential cell count method Nom (Bld) Auto Normal [facility] Comment on above: Order Comment: Speci men Type: BLOOD SPECIMENOrdering Facility: [facility] Address: [address] [address] Performed By: #### 5 7021-8 ####[facility] LABORATORYCLIA [id number] [address] Eosinophils (Bld) [#/Vol] 0.30 10*3/uL Normal <0.46 [facility] Comment on above: Order Comment: Speci men Type: BLOOD SPECIMENOrdering Facility: [facility] Address: [address] [place] [address] Performed By: #### 5 7021-8 ####[facility]ORATORYCLIA [id number] [address] Eosinophils/100 WBC (Bld) 3.4 % Normal [facility] Comment on above: Order Comment: Speci men Type: BLOOD SPECIMENOrdering Facility: [facility] Address: [address] [place] [address] Performed By: #### 5 7021-8 ####[facility] LABORATORYCLIA [id number] [address] Erythrocyte distribution width (RBC) [Ratio] 16.9 % High 11.5-15.0 [facility] Comment on above: Order Comment: Speci men Type: BLOOD SPECIMENOrdering Facility: [facility] Address: [address] [place] [address] Performed By: #### 5 7021-8 ####[facility] LABORATORYCLIA [id number] [address] Hematocrit (Bld) [Volume fraction] 30.3 % Low 39.0-51.0 [facility] Comment on above: Order Comment: Speci men Type: BLOOD SPECIMENOrdering Facility: [facility] Address: [address] [place], [place] [address] Performed By: #### 5 7021-8 ####[facility]ORATORYCLIA [id number] [address] Hemoglobin (Bld) [Mass/Vol] 9.2 g/dL Low 13.0-17.0 [facility] Comment on above: Order Comment: Speci men Type: BLOOD SPECIMENOrdering Facility: [facility] Address: [address] [place] [address] Performed By: #### 5 7021-8 ####[facility] LABORATORYCLIA [id number] [address] IMMATURE GRAN % 0.6 % Normal [facility] Comment on above: Order Comment: Speci men Type: BLOOD SPECIMENOrdering Facility: [facility] Address: [address] [place] [address] Performed By: #### 5 7021-8 ####[facility]ORATORYCLIA [id number] [address] IMMATURE GRAN ABS 0.05 k/uL Normal <0.10 [facility] Comment on above: Order Comment: Speci men Type: BLOOD SPECIMENOrdering Facility: [facility] Address: [address] [place] [address] Performed By: #### 5 7021-8 ####[facility]ATORYCLIA [id number] [address] Lymphocytes (Bld) [#/Vol] 1.68 10*3/uL Normal 1.00-4.00 [facility] Comment on above: Order Comment: Speci men Type: BLOOD SPECIMENOrdering Facility: [facility] Address: [address] [place] [address] Performed By: #### 5 7021-8 ####[facility]ATORYCLIA [id number] [address] Lymphocytes/100 WBC (Bld) 19.2 % Normal [facility] Comment on above: Order Comment: Speci men Type: BLOOD SPECIMENOrdering Facility: [facility] Address: [address] [place] [address] Performed By: #### 5 7021-8 ####[facility]ORATORYCLIA [id number] [address] MCH (RBC) [Entitic mass] 28.4 pg Normal 26.0-34.0 [facility] Comment on above: Order Comment: Speci men Type: BLOOD SPECIMENOrdering Facility: [facility] Address: [address] [place] [address] Performed By: #### 5 7021-8 ####[facility]ORATORYCLIA [id number] [address] MCHC (RBC) [Mass/Vol] 30.4 g/dL Low 30.5-36.0 [facility] Comment on above: Order Comment: Speci men Type: BLOOD SPECIMENOrdering Facility: [facility] Address: [address] [place] [address] Performed By: #### 5 7021-8 ####[facility]ATORYCLIA [id number] [address] MCV (RBC) [Entitic vol] 93.5 fL Normal 80.0-100.0 [facility] Comment on above: Order Comment: Speci men Type: BLOOD SPECIMENOrdering Facility: [facility] Address: [address] [place] [address] Performed By: #### 5 7021-8 ####[facility]ATORYCLIA [id number] [address] Monocytes (Bld) [#/Vol] 0.58 10*3/uL Normal <0.87 [facility] Comment on above: Order Comment: Speci men Type: BLOOD SPECIMENOrdering Facility: [facility] Address: [address] [place] [address] Performed By: #### 5 7021-8 ####[facility]ORATORYCLIA [id number] [address] Monocytes/100 WBC (Bld) 6.6 % Normal [facility] Comment on above: Order Comment: Speci men Type: BLOOD SPECIMENOrdering Facility: [facility] Address: [address] [place] [address] Performed By: #### 5 7021-8 ####[facility]ORATORYCLIA [id number] [address] [place] Neutrophils (Bld) [#/Vol] 6.11 10*3/uL Normal 1.45-7.50 [facility] Comment on above: Order Comment: Speci men Type: BLOOD SPECIMENOrdering Facility: [facility] Address: [address] [place] [address] Performed By: #### 5 7021-8 ####[facility]ORATORYCLIA [id number] [address] [place] Neutrophils/100 WBC (Bld) 69.7 % Normal [facility] Comment on above: Order Comment: Speci men Type: BLOOD SPECIMENOrdering Facility: [facility] Address: [address] [place] [address] Performed By: #### 5 7021-8 ####[facility]ORATORYCLIA [id number] [address] [place] Nucleated RBC (Bld) [#/Vol] 10*3/uL Normal <0.01 [facility] Comment on above: Order Comment: Speci men Type: BLOOD SPECIMENOrdering Facility: [facility] Address: [address] [place] [address] Performed By: #### 5 7021-8 ####[facility]ATORYCLIA [id number] [address] [place] Nucleated RBC/100 WBC (Bld) [Ratio] 0.0 /100 WBC Normal [facility] Comment on above: Order Comment: Speci men Type: BLOOD SPECIMENOrdering Facility: [facility] Address: [address] [place] [address] Performed By: #### 5 7021-8 ####[facility]ATORYCLIA [id number] [place] [address] [place] Platelet mean volume (Bld) [Entitic vol] 11.3 fL Normal 9.0-12.7 [facility] Comment on above: Order Comment: Speci men Type: BLOOD SPECIMENOrdering Facility: [facility] Address: [address] [place] [address] Performed By: #### 5 7021-8 ####[facility]ORATORYCLIA [id number] [address] [place] Platelets (Bld) [#/Vol] 238 10*3/uL Normal 150-400 [facility] Comment on above: Order Comment: Speci men Type: BLOOD SPECIMENOrdering Facility: [facility] Address: [address] [place] [address] Performed By: #### 5 7021-8 ####[facility]ORATORYCLIA [id number] [address] [place] RBC (Bld) [#/Vol] 3.24 10*6/uL Low 4.20-6.00 [facility] Comment on above: Order Comment: Speci men Type: BLOOD SPECIMENOrdering Facility: [facility] Address: [address] [place] [address] Performed By: #### 5 7021-8 ####[facility]ORATORYCLIA [id number] [address] [place] WBC (Bld) [#/Vol] 8.76 10*3/uL Normal 3.70-11.00 [facility] Comment on above: Order Comment: Speci men Type: BLOOD SPECIMENOrdering Facility: [facility] Address: [address] [place] [address] Performed By: #### 5 7021-8 ####[facility]ORATORYCLIA [id number] [address] [place] MRI BRAIN WO/W IVCONon 07-28 MRI BRAIN WO/W IVCON Normal [facility] Magnesium SerPl-mCncon 07-28 Magnesium [Mass/Vol] 2.5 mg/dL High 1.7-2.3 [facility] Comment on above: Order Comment: Speci men Type: BLOOD SPECIMENOrdering Facility: [facility] Address: [address] [place] [address] Performed By: #### 1 4338-8, 60239-6, 2777-1, 08590-6 ####[facility]ORATORYCLIA [id number] [address] [place] [facility] NURSING PR[facility]on 07-28-2021 NURSING PROG Normal [facility] NURSING PROG Normal [facility] Phosphate SerPl-mCncon 07-28 Phosphate [Mass/Vol] 2.8 mg/dL Normal 2.7-4.8 [facility] Comment on above: Order Comment: Speci men Type: BLOOD SPECIMENOrdering Facility: [facility] Address: [address] [place] [address] Performed By: #### 1 4338-8, 40635-2, 27711-04, 21544-3 ####[facility]OSPITALCLIA [id number] [address] [place] Prealbumin [Mass/Vol]on 07-06 Prealbumin Nephelometry [Mass/Vol] 25 mg/dL Normal - [facility] Comment on above: Order Comment: Speci men Type: BLOOD SPECIMENOrdering Facility: [facility] Address: [address] [place] [address] Performed By: #### 1 4338-8, 95821-6, 2777-1, 88407-4 ####[facility]ORATORYCLIA [id number] [address] [place] aPTT PPPon 07-28-2021 aPTT Coag (PPP) [Time] 53.0 s High 23.0-32.4 [facility] Comment on above: Order Comment: Speci men Type: BLOOD SPECIMENOrdering Facility: [facility] Address: [address] [place] [address] Performed By: #### 1 4979-9 ####[facility]ATORYCLIA [id number] [place] [address] [place] aPTT Coag (PPP) [Time] 57.2 s High 23.0-32.4 [facility] Comment on above: Order Comment: Speci men Type: BLOOD SPECIMENOrdering Facility: [facility] Address: [address] [place] [address] Performed By: #### 1 4979-9 ####[facility]ATORYCLIA [id number] [address] [place] Bacteria CSF Culton 07-28-19 22 Bacteria identified Cx Nom (CSF) CULTURE, CSF: No growth 14 days GRAM STAIN: No organisms seen Rare Polymorphonuclear leukocytes Rare Red Blood Cells Gram stain performed on cytospun specimen. Normal [facility] Comment on above: Performed By: #### 6 06-4 ####[facility]ATORYCLIA [id number] [address] Bacteria Spec Resp Culton Bacteria identified Respiratory culture Nom (Unsp spec) CULTURE, RESPIRATORY: Rare Normal respiratory chris present GRAM STAIN: No organisms seen Rare Polymorphonuclear leukocytes Rare Epithelial cells Normal [facility] Comment on above: Performed By: #### 3 2355-0 ####[facility]ORATORYCLIA [id number] [address] [place] CASE MANAGEMon 07-27-2021 CASE MANAGEM Normal [facility] CBC W Auto Differential pane l (Bld)on 07-27-2021 Basophils (Bld) [#/Vol] 0.04 10*3/uL Normal <0.11 [facility] Comment on above: Order Comment: Speci men Type: BLOOD SPECIMENOrdering Facility: [facility] Address: [address] [place] [address] Performed By: #### 5 7021-8 ####[facility]ATORYCLIA [id number] [address] [place] Basophils/100 WBC (Bld) 0.4 % Normal [facility] Comment on above: Order Comment: Speci men Type: BLOOD SPECIMENOrdering Facility: [facility] Address: [address] [address] Performed By: #### 5 7021-8 ####[facility]ATORYCLIA [id number] [address] Differential cell count method Nom (Bld) Auto Normal [facility] Comment on above: Order Comment: Speci men Type: BLOOD SPECIMENOrdering Facility: [facility] Address: [address] [place] [address] Performed By: #### 5 7021-8 ####[facility]ATORYCLIA [id number] [address] [place] Eosinophils (Bld) [#/Vol] 0.50 10*3/uL High <0.46 [facility] Comment on above: Order Comment: Speci men Type: BLOOD SPECIMENOrdering Facility: [facility] Address: [address] [place] [address] Performed By: #### 5 7021-8 ####[facility]ATORYCLIA [id number] [address] Eosinophils/100 WBC (Bld) 5.2 % Normal [facility] Comment on above: Order Comment: Speci men Type: BLOOD SPECIMENOrdering Facility: [facility] Address: [address] [place] [address] Performed By: #### 5 7021-8 ####[facility]ATORYCLIA [id number] [address] [place] Erythrocyte distribution width (RBC) [Ratio] 16.8 % High 11.5-15.0 [facility] Comment on above: Order Comment: Speci men Type: BLOOD SPECIMENOrdering Facility: [facility] Address: [address] [place] [address] Performed By: #### 5 7021-8 ####[facility]ATORYCLIA [id number] [address] [place] Hematocrit (Bld) [Volume fraction] 29.8 % Low 39.0-51.0 [facility] Comment on above: Order Comment: Speci men Type: BLOOD SPECIMENOrdering Facility: [facility] Address: [address] [place] [address] Performed By: #### 5 7021-8 ####[facility]ATORYCLIA [id number] [address] [place] Hemoglobin (Bld) [Mass/Vol] 9.0 g/dL Low 13.0-17.0 [facility] Comment on above: Order Comment: Speci men Type: BLOOD SPECIMENOrdering Facility: [facility] Address: [address] [place] [address] Performed By: #### 5 7021-8 ####[facility]ATORYCLIA [id number] [address] IMMATURE GRAN % 0.6 % Normal [facility] Comment on above: Order Comment: Speci men Type: BLOOD SPECIMENOrdering Facility: [facility] Address: [address] [place] [address] Performed By: #### 5 7021-8 ####[facility]ATORYCLIA [id number] [address] IMMATURE GRAN ABS 0.06 k/uL Normal <0.10 [facility] Comment on above: Order Comment: Speci men Type: BLOOD SPECIMENOrdering Facility: [facility] Address: [address] [place] [address] Performed By: #### 5 7021-8 ####[facility]ATORYCLIA [id number] [address] [place] Lymphocytes (Bld) [#/Vol] 1.73 10*3/uL Normal 1.00-4.00 [facility] Comment on above: Order Comment: Speci men Type: BLOOD SPECIMENOrdering Facility: [facility] Address: [address] [place] [address] Performed By: #### 5 7021-8 ####[facility]ORATORYCLIA [id number] [place] [address] Lymphocytes/100 WBC (Bld) 17.9 % Normal [facility] Comment on above: Order Comment: Speci men Type: BLOOD SPECIMENOrdering Facility: [facility] Address: [address] [place] [address] Performed By: #### 5 7021-8 ####[facility]ATORYCLIA [id number] [address] MCH (RBC) [Entitic mass] 28.1 pg Normal 26.0-34.0 [facility] Comment on above: Order Comment: Speci men Type: BLOOD SPECIMENOrdering Facility: [facility] Address: [address] [place] [address] Performed By: #### 5 7021-8 ####[facility]ATORYCLIA [id number] [address] OF [facility] MCHC (RBC) [Mass/Vol] 30.2 g/dL Low 30.5-36.0 [facility] Comment on above: Order Comment: Speci men Type: BLOOD SPECIMENOrdering Facility: [facility] Address: [address] [place] [address] Performed By: #### 5 7021-8 ####[facility]ATORYCLIA [id number] [address] MCV (RBC) [Entitic vol] 93.1 fL Normal 80.0-100.0 [facility] Comment on above: Order Comment: Speci men Type: BLOOD SPECIMENOrdering Facility: [facility] Address: [address] [place] [address] Performed By: #### 5 7021-8 ####[facility]ATORYCLIA [id number] [address] Monocytes (Bld) [#/Vol] 0.59 10*3/uL Normal <0.87 [facility] Comment on above: Order Comment: Speci men Type: BLOOD SPECIMENOrdering Facility: [facility] Address: [address] [place] [address] Performed By: #### 5 7021-8 ####[facility]ORYCLIA [id number] [address] [place] Monocytes/100 WBC (Bld) 6.1 % Normal [facility] Comment on above: Order Comment: Speci men Type: BLOOD SPECIMENOrdering Facility: [facility] Address: [address] [place] [address] Performed By: #### 5 7021-8 ####[facility]ATORYCLIA [id number] [place] [address] [place] Neutrophils (Bld) [#/Vol] 6.75 10*3/uL Normal 1.45-7.50 [facility] Comment on above: Order Comment: Speci men Type: BLOOD SPECIMENOrdering Facility: [facility] Address: [address] [place] [address] Performed By: #### 5 7021-8 ####[facility]ATORYCLIA [id number] [address] Neutrophils/100 WBC (Bld) 69.8 % Normal [facility] Comment on above: Order Comment: Speci men Type: BLOOD SPECIMENOrdering Facility: [facility] Address: [address] [place] [address] Performed By: #### 5 7021-8 ####[facility]ATORYCLIA [id number] [address] [place] Nucleated RBC (Bld) [#/Vol] 10*3/uL Normal <0.01 [facility] Comment on above: Order Comment: Speci men Type: BLOOD SPECIMENOrdering Facility: [facility] Address: [address] [place] [address] Performed By: #### 5 7021-8 ####[facility]ORYCLIA [id number] [address] [place] Nucleated RBC/100 WBC (Bld) [Ratio] 0.0 /100 WBC Normal [facility] Comment on above: Order Comment: Speci men Type: BLOOD SPECIMENOrdering Facility: [facility] Address: [address] [place] [address] Performed By: #### 5 7021-8 ####[facility]ATORYCLIA [id number] [address] Platelet mean volume (Bld) [Entitic vol] 11.3 fL Normal 9.0-12.7 [facility] Comment on above: Order Comment: Speci men Type: BLOOD SPECIMENOrdering Facility: [facility] Address: [address] [place] [address] Performed By: #### 5 7021-8 ####[facility]ATORYCLIA [id number] [address] [place] Platelets (Bld) [#/Vol] 227 10*3/uL Normal 150-400 [facility] Comment on above: Order Comment: Speci men Type: BLOOD SPECIMENOrdering Facility: [facility] Address: [address] [place] [address] Performed By: #### 5 7021-8 ####[facility]ATORYCLIA [id number] [address] [place] RBC (Bld) [#/Vol] 3.20 10*6/uL Low 4.20-6.00 [facility] Comment on above: Order Comment: Speci men Type: BLOOD SPECIMENOrdering Facility: [facility] Address: [address] [place], [place] [address] Performed By: #### 5 7021-8 ####[facility]ATORYCLIA [id number] [address] [place] WBC (Bld) [#/Vol] 9.67 10*3/uL Normal 3.70-11.00 [facility] Comment on above: Order Comment: Speci men Type: BLOOD SPECIMENOrdering Facility: [facility] Address: [address] [place] [address] Performed By: #### 5 7021-8 ####[facility]ORATORYCLIA [id number] [place] [address] [place] CONSULT PROGon 07-27-2021 CONSULT PROG Normal [facility] CSF MANUAL DIFFon 07-27-2021 DIF TTL, CSF 100 cells counted Normal [facility] Comment on above: Order Comment: Speci men Type: CEREBROSPINAL FLUIDOrdering Facility: [facility] Address: [address] [place] [address] Performed By: #### L [id number], 32582-4, [id number] ####[facility]ORATORYCLIA [id number] [place] [address] [place] LYMPH%, CSF 75 % Normal 50-90 [facility] Comment on above: Order Comment: Speci men Type: CEREBROSPINAL FLUIDOrdering Facility: [facility] Address: [address] [place] [address] Performed By: #### L [id number], 41869-6, [id number] ####[facility]ATORYCLIA [id number] [place] [address] [place] MONO%, CSF 22 % Normal 10-50 [facility] Comment on above: Order Comment: Speci men Type: CEREBROSPINAL FLUIDOrdering Facility: [facility] Address: [address] [place] [address] Performed By: #### L [id number], 00873-3, [id number] ####[facility]ATORYCLIA [id number] [place] [address] [place] NEUT%, CSF 2 % Normal 0-3 [facility] Comment on above: Order Comment: Speci men Type: CEREBROSPINAL FLUIDOrdering Facility: [facility] Address: [address] [place] [address] Performed By: #### L [id number], 83467-3, [id number] ####[facility]ATORYCLIA [id number] [place] [address] [place] OTHER CL%, CSF 1 % Normal [facility] Comment on above: Order Comment: Speci men Type: CEREBROSPINAL FLUIDOrdering Facility: [facility] Address: [address] [place] [address] Result Comment: Path ologist review of microscopy results to follow Performed By: #### L [id number], 61821-5, [id number] ####[facility]ATORYCLIA [id number] [address] CSF PATHOLOGIST INTERP (LAB REFLEX ORDER-NO BILL)on 07-27-2021 CSF STAFF REVIEW Negative Normal [facility] Comment on above: Order Comment: Speci men Type: CEREBROSPINAL FLUIDOrdering Facility: [facility] Address: [address] [place] [address] Performed By: #### L [id number], 60086-4, [id number] ####[facility]ATORYCLIA [id number] [address] Pathologist name Reviewed by Amador Stevens MD [facility] Comment on above: Order Comment: Speci men Type: CEREBROSPINAL FLUIDOrdering Facility: [facility] Address: [address] [place] [address] Performed By: #### L NO0724, 13509-3, [id number] ####[facility]ATORYCLIA [id number] [address] Cell count panel (CSF)on Clarity (CSF) Clear Normal Clear [facility] Comment on above: Order Comment: Speci men Type: CEREBROSPINAL FLUIDOrdering Facility: [facility] Address: [address] [place] [address] Performed By: #### L [id number], 52704-2, [id number] ####[facility]ATORYCLIA [id number] [address] Clarity (Unsp spec) Not Indicated Normal Clear [facility] Comment on above: Order Comment: Speci men Type: CEREBROSPINAL FLUIDOrdering Facility: [facility] Address: [address] [place] [address] Performed By: #### L [id number], 92453-9, [id number] ####[facility]ATORYCLIA [id number] [address] Color (CSF) Colorless Normal Colorless [facility] Comment on above: Order Comment: Speci men Type: CEREBROSPINAL FLUIDOrdering Facility: [facility] Address: [address] [address] Performed By: #### L [id number], 33595-4, [id number] ####[facility]ATORYCLIA [id number] [address] Color (Spun CSF) Not Indicated Normal Colorless [facility] Comment on above: Order Comment: Speci men Type: CEREBROSPINAL FLUIDOrdering Facility: [facility] Address: [address] [place] [address] Performed By: #### L [id number], 33686-1, [id number] ####[facility]ATORYCLIA [id number] [address] CSF TUBE NUMBER [employer] Normal [facility] Comment on above: Order Comment: Speci men Type: CEREBROSPINAL FLUIDOrdering Facility: [facility] Address: [address] [place] [address] Performed By: #### L [id number], 38194-9, [id number] ####[facility]ATORYCLIA [id number] [address] RBC Manual cnt (CSF) [#/Vol] 39 cells/uL High 0-5 [facility] Comment on above: Order Comment: Speci men Type: CEREBROSPINAL FLUIDOrdering Facility: [facility] Address: [address] [address] Performed By: #### L [id number], 38830-9, [id number] ####[facility]ATORYCLIA [id number] [address] WBC Manual cnt (CSF) [#/Vol] 14 cells/uL High 0-5 [facility] Comment on above: Order Comment: Speci men Type: CEREBROSPINAL FLUIDOrdering Facility: [facility] Address: [address] [id number] Performed By: #### L [id number], 04979-6, [id number] ####[facility]ATORYCLIA [id number] [place] [address] [place] Glucose CSF-mCncon Glucose (CSF) [Mass/Vol] 64 mg/dL Normal 40-70 [facility] Comment on above: Order Comment: Speci men Type: CEREBROSPINAL FLUIDOrdering Facility: [facility] Address: [address] [place], [place] [phone] Result Comment: Lumb ar CSF glucose values of healthy patients are approximately 60% of the plasma values and must always be compared with a concurrently measured plasma value for adequate clinical interpretation.References: 1. Glucose HK (GLUC3) [package insert V 12.0 [place]]. [facility], [place], [place]. September 2015. 2. Michelle Moore, Loki HGarfield (2015). Chapter 7: Glucose and Lactate. Marianela Alcocer al.(eds.), Cerebrospinal Fluid in Clinical Neurology. [place]: [employer]. Performed By: #### 2 342-4, 2880-3 ####[facility] LABORATORYCLIA [id number] [place] [address] [place] NUTRITIONon 07-27-2021 NUTRITION Normal [facility] Prot CSF-mCncon 07-27-2021 Protein (CSF) [Mass/Vol] 58 mg/dL High 15-45 [facility] Comment on above: Order Comment: Speci men Type: CEREBROSPINAL FLUIDOrdering Facility: [facility] Address: [address] [id number] Performed By: #### 2 342-4, 2880-3 ####[facility] LABORATORYCLIA [id number] [place] [address] [place] aPTT PPPon 07-27-2021 aPTT Coag (PPP) [Time] 68.4 s High 23.0-32.4 [facility] Comment on above: Order Comment: Speci men Type: BLOOD SPECIMENOrdering Facility: [facility] Address: [address] [address] Performed By: #### 1 4979-9 ####[facility]ATORYCLIA [id number] [address] aPTT Coag (PPP) [Time] 51.3 s High 23.0-32.4 [facility] Comment on above: Order Comment: Speci men Type: BLOOD SPECIMENOrdering Facility: [facility] Address: [address] [place] [address] Performed By: #### 1 4979-9 ####[facility]ORATORYCLIA [id number] [address] ALLIED HEALTHon 07-26-2021 ALLIED HEALTH HNO ID: [id number] Author: Stephanie Maldonado, running specialist Service: Radiology Author Type: 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 Die Type: Allied Health Filed: 07/26/2021 4:10 PM Note Text: Spoke with nurse. Pt getting new EVD today. Try tomorrow. Normal [facility] Bacteria CSF Culton 07-27-19 22 Bacteria identified Cx Nom (CSF) Abnormal [facility] Comment on above: Performed By: #### 6 06-4 ####[facility]ATORYCLIA [id number] [address] Basic metabolic 2000 panelon 07-26-2021 Anion gap [Moles/Vol] 6 mmol/L Low 9-18 [facility] Comment on above: Order Comment: Speci men Type: BLOOD SPECIMENOrdering Facility: [facility] Address: [address] [place] [address] Performed By: #### 2 4321-2 ####[facility]ATORYCLIA [id number] [address] Calcium [Mass/Vol] 9.2 mg/dL Normal 8.5-10.2 [facility] Comment on above: Order Comment: Speci men Type: BLOOD SPECIMENOrdering Facility: [facility] Address: [address] [place] [address] Performed By: #### 2 4321-2 ####[facility]ORATORYCLIA [id number] [address] [place] Chloride [Moles/Vol] 99 mmol/L Normal 97-105 [facility] Comment on above: Order Comment: Speci men Type: BLOOD SPECIMENOrdering Facility: [facility] Address: [address] [place] [address] Performed By: #### 2 4321-2 ####[facility]ORATORYCLIA [id number] [address] OF [facility] CO2 [Moles/Vol] 32 mmol/L High 22-30 [facility] Comment on above: Order Comment: Speci men Type: BLOOD SPECIMENOrdering Facility: [facility] Address: [address] [place] [address] Performed By: #### 2 4321-2 ####[facility]ATORYCLIA [id number] [address] Creatinine [Mass/Vol] 0.74 mg/dL Normal 0.73-1.22 [facility] Comment on above: Order Comment: Speci men Type: BLOOD SPECIMENOrdering Facility: [facility] Address: [address] [place] [address] Performed By: #### 2 4321-2 ####[facility]ORATORYCLIA [id number] [address] ESTIMATED GLOMERULAR FILTRATION RATE 98 mL/min/1.73m??? Normal >=60 [facility] Comment on above: Order Comment: Speci men Type: BLOOD SPECIMENOrdering Facility: [facility] Address: [address] [place] [address] Result Comment: Luzmaria mated Glomerular Filtration Rate [...] actual GFR. Performed By: #### 2 4321-2 ####[facility]ATORYCLIA [id number] [place] [address] [place] Glucose [Mass/Vol] 126 mg/dL High 74-99 [facility] Comment on above: Order Comment: Speci men Type: BLOOD SPECIMENOrdering Facility: [facility] Address: [address] [place] [address] Result Comment: The [place] Diabetes Association (ADA) provides guidance for cutoff [...] Standards of Medical Care in Diabetes 2016, [place] Diabetes Association. Diabetes Care. 2016.39(Suppl 1). Performed By: #### 2 4321-2 ####[facility]ATORYCLIA [id number] [place] [address] [place] Potassium [Moles/Vol] 4.2 mmol/L Normal 3.7-5.1 [facility] Comment on above: Order Comment: Speci men Type: BLOOD SPECIMENOrdering Facility: [facility] Address: [address] [place] [address] Performed By: #### 2 4321-2 ####[facility]ATORYCLIA [id number] [place] [address] [place] Sodium [Moles/Vol] 137 mmol/L Normal 136-144 [facility] Comment on above: Order Comment: Speci men Type: BLOOD SPECIMENOrdering Facility: [facility] Address: [address] [place] [address] Performed By: #### 2 4321-2 ####[facility]ORATORYCLIA [id number] [place] [address] [place] Urea nitrogen [Mass/Vol] 36 mg/dL High 9-24 [facility] Comment on above: Order Comment: Speci men Type: BLOOD SPECIMENOrdering Facility: [facility] Address: [address] [place] [address] Performed By: #### 2 4321-2 ####[facility]ORATORYCLIA [id number] [address] STATES OF [facility] CBC W Auto Differential pane l (Bld)on 07-26-2021 Basophils (Bld) [#/Vol] 0.04 10*3/uL Normal <0.11 [facility] Comment on above: Order Comment: Speci men Type: BLOOD SPECIMENOrdering Facility: [facility] Address: [address] [place] [address] Performed By: #### 5 7021-8 ####[facility]ORATORYCLIA [id number] [address] STATES [facility] Basophils/100 WBC (Bld) 0.4 % Normal [facility] Comment on above: Order Comment: Speci men Type: BLOOD SPECIMENOrdering Facility: [facility] Address: [address] [place] [address] Performed By: #### 5 7021-8 ####[facility]ATORYCLIA [id number] [address] Differential cell count method Nom (Bld) Auto Normal [facility] Comment on above: Order Comment: Speci men Type: BLOOD SPECIMENOrdering Facility: [facility] Address: [address] [place] [address] Performed By: #### 5 7021-8 ####[facility]ORATORYCLIA [id number] [place] [address] [place] Eosinophils (Bld) [#/Vol] 0.63 10*3/uL High <0.46 [facility] Comment on above: Order Comment: Speci men Type: BLOOD SPECIMENOrdering Facility: [facility] Address: [address] [place] [address] Performed By: #### 5 7021-8 ####[facility]ORATORYCLIA [id number] [address] STATES [facility] Eosinophils/100 WBC (Bld) 5.8 % Normal [facility] Comment on above: Order Comment: Speci men Type: BLOOD SPECIMENOrdering Facility: [facility] Address: [address] [place] [address] Performed By: #### 5 7021-8 ####[facility]ORATORYCLIA [id number] [address] Erythrocyte distribution width (RBC) [Ratio] 16.8 % High 11.5-15.0 [facility] Comment on above: Order Comment: Speci men Type: BLOOD SPECIMENOrdering Facility: [facility] Address: [address] [place] [address] Performed By: #### 5 7021-8 ####[facility]ORATORYCLIA [id number] [address] Hematocrit (Bld) [Volume fraction] 31.2 % Low 39.0-51.0 [facility] Comment on above: Order Comment: Speci men Type: BLOOD SPECIMENOrdering Facility: [facility] Address: [address] [place] [address] Performed By: #### 5 7021-8 ####[facility]ORATORYCLIA [id number] [address] [place] Hemoglobin (Bld) [Mass/Vol] 9.1 g/dL Low 13.0-17.0 [facility] Comment on above: Order Comment: Speci men Type: BLOOD SPECIMENOrdering Facility: [facility] Address: [address] [place] [address] Performed By: #### 5 7021-8 ####[facility]ORATORYCLIA [id number] [address] IMMATURE GRAN % 0.6 % Normal [facility] Comment on above: Order Comment: Speci men Type: BLOOD SPECIMENOrdering Facility: [facility] Address: [address] [place] [address] Performed By: #### 5 7021-8 ####[facility]ATORYCLIA [id number] [address] IMMATURE GRAN ABS 0.07 k/uL Normal <0.10 [facility] Comment on above: Order Comment: Speci men Type: BLOOD SPECIMENOrdering Facility: [facility] Address: [address] [place] [address] Performed By: #### 5 7021-8 ####[facility]ATORYCLIA [id number] [address] Lymphocytes (Bld) [#/Vol] 2.16 10*3/uL Normal 1.00-4.00 [facility] Comment on above: Order Comment: Speci men Type: BLOOD SPECIMENOrdering Facility: [facility] Address: [address] [place] [address] Performed By: #### 5 7021-8 ####[facility]ATORYCLIA [id number] [address] Lymphocytes/100 WBC (Bld) 20.0 % Normal [facility] Comment on above: Order Comment: Speci men Type: BLOOD SPECIMENOrdering Facility: [facility] Address: [address] [place] [address] Performed By: #### 5 7021-8 ####[facility]ATORYCLIA [id number] [address] MCH (RBC) [Entitic mass] 27.7 pg Normal 26.0-34.0 [facility] Comment on above: Order Comment: Speci men Type: BLOOD SPECIMENOrdering Facility: [facility] Address: [address] [place] [address] Performed By: #### 5 7021-8 ####[facility]ATORYCLIA [id number] [address] MCHC (RBC) [Mass/Vol] 29.2 g/dL Low 30.5-36.0 [facility] Comment on above: Order Comment: Speci men Type: BLOOD SPECIMENOrdering Facility: [facility] Address: [address] [place] [address] Performed By: #### 5 7021-8 ####[facility]ATORYCLIA [id number] [address] [place] MCV (RBC) [Entitic vol] 95.1 fL Normal 80.0-100.0 [facility] Comment on above: Order Comment: Speci men Type: BLOOD SPECIMENOrdering Facility: [facility] Address: [address] [place] [address] Performed By: #### 5 7021-8 ####[facility]ATORYCLIA [id number] [address] [place] Monocytes (Bld) [#/Vol] 0.63 10*3/uL Normal <0.87 [facility] Comment on above: Order Comment: Speci men Type: BLOOD SPECIMENOrdering Facility: [facility] Address: [address] [place] [address] Performed By: #### 5 7021-8 ####[facility]ATORYCLIA [id number] [address] Monocytes/100 WBC (Bld) 5.8 % Normal [facility] Comment on above: Order Comment: Speci men Type: BLOOD SPECIMENOrdering Facility: [facility] Address: [address] [place] [address] Performed By: #### 5 7021-8 ####[facility]ATORYCLIA [id number] [address] [place] Neutrophils (Bld) [#/Vol] 7.25 10*3/uL Normal 1.45-7.50 [facility] Comment on above: Order Comment: Speci men Type: BLOOD SPECIMENOrdering Facility: [facility] Address: [address] [place] [address] Performed By: #### 5 7021-8 ####[facility]ATORYCLIA [id number] [address] Neutrophils/100 WBC (Bld) 67.4 % Normal [facility] Comment on above: Order Comment: Speci men Type: BLOOD SPECIMENOrdering Facility: [facility] Address: [address] [place] [address] Performed By: #### 5 7021-8 ####[facility]ATORYCLIA [id number] [address] [place] Nucleated RBC (Bld) [#/Vol] 10*3/uL Normal <0.01 [facility] Comment on above: Order Comment: Speci men Type: BLOOD SPECIMENOrdering Facility: [facility] Address: [address] [place] [address] Performed By: #### 5 7021-8 ####[facility]ATORYCLIA [id number] [address] Nucleated RBC/100 WBC (Bld) [Ratio] 0.0 /100 WBC Normal [facility] Comment on above: Order Comment: Speci men Type: BLOOD SPECIMENOrdering Facility: [facility] Address: [address] [place] [address] Performed By: #### 5 7021-8 ####[facility]ATORYCLIA [id number] [address] [place] Platelet mean volume (Bld) [Entitic vol] 11.2 fL Normal 9.0-12.7 [facility] Comment on above: Order Comment: Speci men Type: BLOOD SPECIMENOrdering Facility: [facility] Address: [address] [place] [address] Performed By: #### 5 7021-8 ####[facility]ATORYCLIA [id number] [address] [place] Platelets (Bld) [#/Vol] 245 10*3/uL Normal 150-400 [facility] Comment on above: Order Comment: Speci men Type: BLOOD SPECIMENOrdering Facility: [facility] Address: [address] [place] [address] Performed By: #### 5 7021-8 ####[facility]ATORYCLIA [id number] [address] RBC (Bld) [#/Vol] 3.28 10*6/uL Low 4.20-6.00 [facility] Comment on above: Order Comment: Speci men Type: BLOOD SPECIMENOrdering Facility: [facility] Address: [address] [place] [address] Performed By: #### 5 7021-8 ####[facility]ATORYCLIA [id number] [address] WBC (Bld) [#/Vol] 10.78 10*3/uL Normal 3.70-11.00 [facility] Comment on above: Order Comment: Speci men Type: BLOOD SPECIMENOrdering Facility: [facility] Address: [address] [place] [address] Performed By: #### 5 7021-8 ####[facility]ATORYCLIA [id number] [address] CSF MANUAL DIFFon 07-26-2021 DIF TTL, CSF 100 cells counted Normal [facility] Comment on above: Order Comment: Speci men Type: CEREBROSPINAL FLUIDOrdering Facility: [facility] Address: [address] [place] [address] Performed By: #### 3 4563-7, [id number], [id number] ####[facility]ORATORYCLIA [id number] [address] LYMPH%, CSF 26 % Low 50-90 [facility] Comment on above: Order Comment: Speci men Type: CEREBROSPINAL FLUIDOrdering Facility: [facility] Address: [address] [place] [address] Performed By: #### 3 4563-7, [id number], [id number] ####[facility]ORATORYCLIA [id number] [address] MACRO%, CSF 10 % High <1 [facility] Comment on above: Order Comment: Speci men Type: CEREBROSPINAL FLUIDOrdering Facility: [facility] Address: [address] [address] Performed By: #### 3 4563-7, [id number], [id number] ####[facility]ORATORYCLIA [id number] [place] [address] [place] MONO%, CSF 20 % Normal 10-50 [facility] Comment on above: Order Comment: Speci men Type: CEREBROSPINAL FLUIDOrdering Facility: [facility] Address: [address] [place] [address] Performed By: #### 3 4563-7, [id number], [id number] ####[facility]ORATORYCLIA [id number] [place] [address] [place] NEUT%, CSF 40 % High 0-3 [facility] Comment on above: Order Comment: Speci men Type: CEREBROSPINAL FLUIDOrdering Facility: [facility] Address: [address] [place] [address] Performed By: #### 3 4563-7, [id number], [id number] ####[facility]ATORYCLIA [id number] [address] [place] OTHER CL%, CSF 2 % Normal [facility] Comment on above: Order Comment: Speci men Type: CEREBROSPINAL FLUIDOrdering Facility: [facility] Address: [address] [place] [address] Result Comment: Path review to follow. Performed By: #### 3 4563-7, [id number], [id number] ####[facility]ATORYCLIA [id number] [address] [place] REAC LYMPH %, CSF 2 % Normal [facility] Comment on above: Order Comment: Speci men Type: CEREBROSPINAL FLUIDOrdering Facility: [facility] Address: [address] [place] [address] Performed By: #### 3 4563-7, [id number], [id number] ####[facility]ATORYCLIA [id number] [address] CSF PATHOLOGIST INTERP (LAB REFLEX ORDER-NO BILL)on 07-26-2021 CSF STAFF REVIEW Negative for maligna nt cells. Rare bacteria present, cocci in pairs and chains. Correlation with CSF cultures is recommended. Normal [facility] Comment on above: Order Comment: Speci men Type: CEREBROSPINAL FLUIDOrdering Facility: [facility] Address: [address] [place] [address] Performed By: #### 3 4563-7, [id number], [id number] ####[facility]ORATORYCLIA [id number] [address] Pathologist name Reviewed by Amador Stevens MD [facility] Comment on above: Order Comment: Speci men Type: CEREBROSPINAL FLUIDOrdering Facility: [facility] Address: [address] [place] [address] Performed By: #### 3 4563-7, [id number], [id number] ####[facility]ATORYCLIA [id number] [address] Cell count panel (CSF)on Clarity (CSF) Slightly Cloudy Abnormal Clear [facility] Comment on above: Order Comment: Speci men Type: CEREBROSPINAL FLUIDOrdering Facility: [facility] Address: [address] [place] [address] Performed By: #### 3 4563-7, [id number], [id number] ####[facility]ATORYCLIA [id number] [address] [place] Clarity (Unsp spec) Clear Normal Clear [facility] Comment on above: Order Comment: Speci men Type: CEREBROSPINAL FLUIDOrdering Facility: [facility] Address: [address] [place] [address] Performed By: #### 3 4563-7, [id number], [id number] ####[facility]ATORYCLIA [id number] [address] [place] Color (CSF) Colorless Normal Colorless [facility] Comment on above: Order Comment: Speci men Type: CEREBROSPINAL FLUIDOrdering Facility: [facility] Address: [facility] [address] Performed By: #### 3 4563-7, [id number], [id number] ####[facility]ORATORYCLIA [id number] [address] Color (Spun CSF) Not Indicated Normal Colorless [facility] Comment on above: Order Comment: Speci men Type: CEREBROSPINAL FLUIDOrdering Facility: [facility] Address: [address] [place] [address] Performed By: #### 3 4563-7, [id number], [id number] ####[facility]ORATORYCLIA [id number] [address] CSF TUBE NUMBER [employer] Normal [facility] Comment on above: Order Comment: Speci men Type: CEREBROSPINAL FLUIDOrdering Facility: [facility] Address: [address] [place] [address] Performed By: #### 3 4563-7, [id number], [id number] ####[facility]ATORYCLIA [id number] [address] RBC Manual cnt (CSF) [#/Vol] 1 cells/uL Normal 0-5 [facility] Comment on above: Order Comment: Speci men Type: CEREBROSPINAL FLUIDOrdering Facility: [facility] Address: [address] Performed By: #### 3 4563-7, [id number], [id number] ####[facility]ORATORYCLIA [id number] [address] WBC Manual cnt (CSF) [#/Vol] 50 cells/uL High 0-5 [facility] Comment on above: Order Comment: Speci men Type: CEREBROSPINAL FLUIDOrdering Facility: [facility] Address: [address] [address] Performed By: #### 3 4563-7, [id number], [id number] ####[facility]ORATORYCLIA [id number] [place] [address] [place] Glucose CSF-mCncon 2 Glucose (CSF) [Mass/Vol] 64 mg/dL Normal 40-70 [facility] Comment on above: Order Comment: Speci men Type: CEREBROSPINAL FLUIDOrdering Facility: [facility] Address: [address] [place] [address] Result Comment: Lumb ar CSF glucose values of healthy patients are approximately 60% of the plasma values and must always be compared with a concurrently measured plasma value for adequate clinical interpretation.References: 1. Glucose HK (GLUC3) [package insert V 12.0 Q[place]]. [employer], [place], [place]. September 2015. 2. Michelle Moore, Michelle Manjarrez (2015). Chapter 7: Glucose and Lactate. FGarfield Alcocer al.(eds.), Cerebrospinal Fluid in Clinical Neurology. [place]: [employer]. Performed By: #### 2 880-3, 2342-4 ####[facility]ORATORYCLIA [id number] [place] [address] [place] Magnesium [facility] 07-26 Magnesium [Mass/Vol] 2.3 mg/dL Normal 1.7-2.3 [facility] Comment on above: Order Comment: Speci men Type: BLOOD SPECIMENOrdering Facility: [facility] Address: [address] [place] [address] Performed By: #### 1 9123-9, 2777-1, 3016-3 ####[facility]ORATORYCLIA [id number] [place] [address] [place] NURSING PROGon 07-26-2021 NURSING PROG Normal [facility] Phosphate SerPl-ncon 07-26 Phosphate [Mass/Vol] 2.6 mg/dL Low 2.7-4.8 [facility] Comment on above: Order Comment: Speci men Type: BLOOD SPECIMENOrdering Facility: [facility] Address: [address] [place] [address] Performed By: #### 1 9123-9, 2777-1, 3016-3 ####[facility]ORATORYCLIA [id number] [place] [address] [place] Prot CSF-mCncon 07-26-2021 Protein (CSF) [Mass/Vol] 64 mg/dL High 15-45 [facility] Comment on above: Order Comment: Speci men Type: CEREBROSPINAL FLUIDOrdering Facility: [facility] Address: [address] [place] [address] Performed By: #### 2 880-3, 2342-4 ####[facility]ORATORYCLIA [id number] [address] [place] THERAPY NTon 07-26-2021 THERAPY NT Normal [facility] TSH SerPl-aCncon 07-26-2021 TSH Qn 1.470 m[IU]/L Normal 0.270-4.200 [facility] Comment on above: Order Comment: Speci men Type: BLOOD SPECIMENOrdering Facility: [facility] Address: [address] [place] [address] Performed By: #### 1 9123-9, 2777-1, 3016-3 ####[facility]ORATORYCLIA [id number] [address] [place] VITAMIN B12 BLOODon 07-27-19 Cobalamin (Vitamin B12) [Mass/Vol] 934 pg/mL Normal 232-1,245 [facility] Comment on above: Order Comment: Speci men Type: BLOOD SPECIMENOrdering Facility: [facility] Address: [address] [place] [address] Performed By: #### B 12 ####[facility]ORATORYCLIA [id number] [place] [address] [place] aPTT PPPon 07-26-2021 aPTT Coag (PPP) [Time] 53.6 s High 23.0-32.4 [facility] Comment on above: Order Comment: Speci men Type: BLOOD SPECIMENOrdering Facility: [facility] Address: [address] [address] Performed By: #### 1 4979-9 ####[facility]ORATORYCLIA [id number] [address] aPTT Coag (PPP) [Time] 44.9 s High 23.0-32.4 [facility] Comment on above: Order Comment: Speci men Type: BLOOD SPECIMENOrdering Facility: [facility] Address: [address] [place] [address] Performed By: #### 1 4979-9 ####[facility]ORATORYCLIA [id number] [address] ALLIED HEALTHon 07-25-2021 ALLIED HEALTH HNO ID: [id number] Author: Shannon Bess RT(R) Service: Radiology Author Type: Technologist Type: Allied Health Filed: 07/25/2021 1:37 PM Note Text: Called floor for MRI screening form [id number] Normal [facility] Bacteria Bld Culton 07-26-19 22 Bacteria identified Cx Nom (Bld) CULTURE, BLOOD: No growth 5 days Normal [facility] Comment on above: Performed By: #### 6 00-7 ####[facility]ATORYCLIA [id number] [address] Bacteria identified Cx Nom (Bld) CULTURE, BLOOD: No growth 5 days Normal [facility] Comment on above: Performed By: #### 6 00-7 ####[facility]ORYCL[facility] [id number] [address] CASE MANAGEMon 07-25-2021 CASE MANAGEM Normal [facility] CBC W Auto Differential pane l (Bld)on 07-25-2021 Basophils (Bld) [#/Vol] 0.06 10*3/uL Normal <0.11 [facility] Comment on above: Order Comment: Speci men Type: BLOOD SPECIMENOrdering Facility: [facility] Address: [address] [address] Performed By: #### 5 7021-8 ####[facility]ORATORYCLIA [id number] [address] STATES [facility] Basophils/100 WBC (Bld) 0.6 % Normal [facility] Comment on above: Order Comment: Speci men Type: BLOOD SPECIMENOrdering Facility: [facility] Address: [address] [place] [address] Performed By: #### 5 7021-8 ####[facility]ORATORYCLIA [id number] [address] [place] Differential cell count method Nom (Bld) Auto Normal [facility] Comment on above: Order Comment: Speci men Type: BLOOD SPECIMENOrdering Facility: [facility] Address: [address] [place] [address] Performed By: #### 5 7021-8 ####[facility]ORATORYCLIA [id number] [address] [place] Eosinophils (Bld) [#/Vol] 0.26 10*3/uL Normal <0.46 [facility] Comment on above: Order Comment: Speci men Type: BLOOD SPECIMENOrdering Facility: [facility] Address: [address] [place] [address] Performed By: #### 5 7021-8 ####[facility]ATORYCLIA [id number] [address] Eosinophils/100 WBC (Bld) 2.5 % Normal [facility] Comment on above: Order Comment: Speci men Type: BLOOD SPECIMENOrdering Facility: [facility] Address: [address] [place] [address] Performed By: #### 5 7021-8 ####[facility]ATORYCLIA [id number] [address] [place] Erythrocyte distribution width (RBC) [Ratio] 16.9 % High 11.5-15.0 [facility] Comment on above: Order Comment: Speci men Type: BLOOD SPECIMENOrdering Facility: [facility] Address: [address] [address] Performed By: #### 5 7021-8 ####[facility]ORATORYCLIA [id number] [address] Hematocrit (Bld) [Volume fraction] 29.6 % Low 39.0-51.0 [facility] Comment on above: Order Comment: Speci men Type: BLOOD SPECIMENOrdering Facility: [facility] Address: [address] [place] [address] Performed By: #### 5 7021-8 ####[facility]ORATORYCLIA [id number] [address] Hemoglobin (Bld) [Mass/Vol] 8.8 g/dL Low 13.0-17.0 [facility] Comment on above: Order Comment: Speci men Type: BLOOD SPECIMENOrdering Facility: [facility] Address: [address] [place] [address] Performed By: #### 5 7021-8 ####[facility]ORATORYCLIA [id number] [address] IMMATURE GRAN % 0.6 % Normal [facility] Comment on above: Order Comment: Speci men Type: BLOOD SPECIMENOrdering Facility: [facility] Address: [address] [place] [address] Performed By: #### 5 7021-8 ####[facility]ORATORYCLIA [id number] [address] IMMATURE GRAN ABS 0.06 k/uL Normal <0.10 [facility] Comment on above: Order Comment: Speci men Type: BLOOD SPECIMENOrdering Facility: [facility] Address: [address] [place] [address] Performed By: #### 5 7021-8 ####[facility]ORATORYCLIA [id number] [address] OF [facility] Lymphocytes (Bld) [#/Vol] 2.15 10*3/uL Normal 1.00-4.00 [facility] Comment on above: Order Comment: Speci men Type: BLOOD SPECIMENOrdering Facility: [facility] Address: [address] [place] [address] Performed By: #### 5 7021-8 ####[facility]ORATORYCLIA [id number] [address] Lymphocytes/100 WBC (Bld) 20.7 % Normal [facility] Comment on above: Order Comment: Speci men Type: BLOOD SPECIMENOrdering Facility: [facility] Address: [address] [place] [address] Performed By: #### 5 7021-8 ####[facility]ORATORYCLIA [id number] [address] MCH (RBC) [Entitic mass] 28.2 pg Normal 26.0-34.0 [facility] Comment on above: Order Comment: Speci men Type: BLOOD SPECIMENOrdering Facility: [facility] Address: [address] [place] [address] Performed By: #### 5 7021-8 ####[facility]ORATORYCLIA [id number] [address] STATES OF [facility] MCHC (RBC) [Mass/Vol] 29.7 g/dL Low 30.5-36.0 [facility] Comment on above: Order Comment: Speci men Type: BLOOD SPECIMENOrdering Facility: [facility] Address: [address] [place] [address] Performed By: #### 5 7021-8 ####[facility]ORATORYCLIA [id number] [address] STATES OF [facility] MCV (RBC) [Entitic vol] 94.9 fL Normal 80.0-100.0 [facility] Comment on above: Order Comment: Speci men Type: BLOOD SPECIMENOrdering Facility: [facility] Address: [address] [place] [address] Performed By: #### 5 7021-8 ####[facility]ORATORYCLIA [id number] [address] [place] Monocytes (Bld) [#/Vol] 0.62 10*3/uL Normal <0.87 [facility] Comment on above: Order Comment: Speci men Type: BLOOD SPECIMENOrdering Facility: [facility] Address: [address] [place] [address] Performed By: #### 5 7021-8 ####[facility]ORATORYCLIA [id number] [address] [place] Monocytes/100 WBC (Bld) 6.0 % Normal [facility] Comment on above: Order Comment: Speci men Type: BLOOD SPECIMENOrdering Facility: [facility] Address: [address] [place] [address] Performed By: #### 5 7021-8 ####[facility]ORATORYCLIA [id number] [address] [place] Neutrophils (Bld) [#/Vol] 7.25 10*3/uL Normal 1.45-7.50 [facility] Comment on above: Order Comment: Speci men Type: BLOOD SPECIMENOrdering Facility: [facility] Address: [address] [place] [address] Performed By: #### 5 7021-8 ####[facility]ORATORYCLIA [id number] [address] [place] Neutrophils/100 WBC (Bld) 69.6 % Normal [facility] Comment on above: Order Comment: Speci men Type: BLOOD SPECIMENOrdering Facility: [facility] Address: [address] [place] [address] Performed By: #### 5 7021-8 ####[facility]ORATORYCLIA [id number] [address] [place] Nucleated RBC (Bld) [#/Vol] 10*3/uL Normal <0.01 [facility] Comment on above: Order Comment: Speci men Type: BLOOD SPECIMENOrdering Facility: [facility] Address: [address] [place] [address] Performed By: #### 5 7021-8 ####[facility]ORATORYCLIA [id number] [address] [place] Nucleated RBC/100 WBC (Bld) [Ratio] 0.0 /100 WBC Normal [facility] Comment on above: Order Comment: Speci men Type: BLOOD SPECIMENOrdering Facility: [facility] Address: [address] [place] [address] Performed By: #### 5 7021-8 ####[facility]ORATORYCLIA [id number] [address] [place] Platelet mean volume (Bld) [Entitic vol] 11.3 fL Normal 9.0-12.7 [facility] Comment on above: Order Comment: Speci men Type: BLOOD SPECIMENOrdering Facility: [facility] Address: [address] [place] [address] Performed By: #### 5 7021-8 ####[facility]ORATORYCLIA [id number] [address] [place] Platelets (Bld) [#/Vol] 243 10*3/uL Normal 150-400 [facility] Comment on above: Order Comment: Speci men Type: BLOOD SPECIMENOrdering Facility: [facility] Address: [address] [place] [address] Performed By: #### 5 7021-8 ####[facility]ORATORYCLIA [id number] [address] [place] RBC (Bld) [#/Vol] 3.12 10*6/uL Low 4.20-6.00 [facility] Comment on above: Order Comment: Speci men Type: BLOOD SPECIMENOrdering Facility: [facility] Address: [address] [place] [address] Performed By: #### 5 7021-8 ####[facility]ORATORYCLIA [id number] [address] [place] WBC (Bld) [#/Vol] 10.40 10*3/uL Normal 3.70-11.00 [facility] Comment on above: Order Comment: Speci men Type: BLOOD SPECIMENOrdering Facility: [facility] Address: [address] [place] [address] Performed By: #### 5 7021-8 ####[facility]ORATORYCLIA [id number] [place] [address] [place] CONSULT PROGon 07-25-2021 CONSULT PROG Normal [facility] MYCOPLASMA PNEUM IGMon 07-25 M. PNEUMO IGM, QUAL Negative Normal Negative [facility] Comment on above: Order Comment: Speci men Type: BLOOD SPECIMENOrdering Facility: [facility] Address: [address] [place] [address] Result Comment: Myco plasma pneumoniae IgM antibody test is used as an aid in diagnosis of recent infection with M. pneumoniae. It may occasionally remain elevated for extended periods after an acute infection. Cannot exclude recent infection if the specimen collected 7-10 days after onset of signs and symptoms. Clinical correlation is required. Performed By: #### M YCOPM ####[facility] LABCLIA [id number] [facility]ITALDESK [id number] [place] NURSING PROGon 07-25-2021 NURSING PROG Normal [facility] THERAPY NTon 07-25-2021 THERAPY NT Normal [facility] THERAPY NT Normal [facility] aPTT PPPon 07-25-2021 aPTT Coag (PPP) [Time] 62.6 s High 23.0-32.4 [facility] Comment on above: Order Comment: Speci men Type: BLOOD SPECIMENOrdering Facility: [facility] Address: [address] [place] [address] Performed By: #### 1 4979-9 ####[facility]ORATORYCLIA [id number] [place] [address] [place] Bacteria Ur Culton 2 Bacteria identified Cx Nom (U) CULTURE, URINE: No growth (<100 CFU/ml) Normal [facility] Comment on above: Performed By: #### 6 30-4 ####[facility]ORATORYCLIA [id number] [place] [address] [place] Basic metabolic 2000 panelon 07-24-2021 Anion gap [Moles/Vol] 13 mmol/L Normal 9-18 [facility] Comment on above: Order Comment: Speci men Type: BLOOD SPECIMENOrdering Facility: [facility] Address: [address] [place] [address] Performed By: #### 1 9123-9, PROCAL, 2776-1, 42197-8 ####[facility]ORATORYCLIA [id number] [place] [address] [place] Calcium [Mass/Vol] 9.5 mg/dL Normal 8.5-10.2 [facility] Comment on above: Order Comment: Speci men Type: BLOOD SPECIMENOrdering Facility: [facility] Address: [address] [place] [address] Performed By: #### 1 9123-9, PROCAL, 2776-1, 37073-8 ####[facility]ORATORYCLIA [id number] [place] [address] [place] Chloride [Moles/Vol] 102 mmol/L Normal 97-105 [facility] Comment on above: Order Comment: Speci men Type: BLOOD SPECIMENOrdering Facility: [facility] Address: [address] [place] [address] Performed By: #### 1 9123-9, PROCAL, 2776-1, 42071-2 ####[facility]ORATORYCLIA [id number] [place] [address] [place] CO2 [Moles/Vol] 28 mmol/L Normal 22-30 [facility] Comment on above: Order Comment: Speci men Type: BLOOD SPECIMENOrdering Facility: [facility] Address: [address] [place] [address] Performed By: #### 1 9123-9, PROCAL, 7-1, 83355-7 ####[facility]ORATORYCLIA [id number] OF [facility] Creatinine [Mass/Vol] 0.86 mg/dL Normal 0.73-1.22 [facility] Comment on above: Order Comment: Shira feldman Type: BLOOD SPECIMENOrdering Facility: [facility] Address: [address] [address] Performed By: #### 1 9123-9, PROCCARLITOS, 2777-1, 07960-1 ####[facility]ORATORYCLIA [id number] [address] ESTIMATED GLOMERULAR FILTRATION RATE 94 mL/min/1.73m??? Normal >=60 [facility] Comment on above: Order Comment: Shira feldman Type: BLOOD SPECIMENOrdering Facility: [facility] Address: [address] [place] [address] Result Comment: Luzmaria mated Glomerular Filtration Rate [...] actual GFR. Performed By: #### 1 9123-9, KATIE, 2777-1, 37154-1 ####[facility]ORATORYCLIA [id number] [address] STATES OF [facility] Glucose [Mass/Vol] 148 mg/dL High 74-99 [facility] Comment on above: Order Comment: Shira feldman Type: BLOOD SPECIMENOrdering Facility: [facility] Address: [address] [address] Result Comment: The [place] [employer] (ADA) provides guidance for cutoff [...] Standards of Medical Care in Diabetes 2016, [place] [employer]. Diabetes Care. 2016.39(Suppl 1). Performed By: #### 1 9123-9, KATIE, 2776-, 56742-5 ####[facility]ORATORYCLIA [id number] [address] STATES OF [facility] Potassium [Moles/Vol] 4.0 mmol/L Normal 3.7-5.1 [facility] Comment on above: Order Comment: Shira feldman Type: BLOOD SPECIMENOrdering Facility: [facility] Address: [address] [place] [address] Performed By: #### 1 9123-9, KATIE, 2776-05, 29298-9 ####[facility] HOSPITALCLIA [id number] [address] STATES [facility] Sodium [Moles/Vol] 143 mmol/L Normal 136-144 [facility] Comment on above: Order Comment: Shira feldman Type: BLOOD SPECIMENOrdering Facility: [facility] Address: [address] [place] [address] Performed By: #### 1 9123-9, KATIE, 2776-05, 28066-2 ####[facility]ORATORYCLIA [id number] [address] [place] [facility] Urea nitrogen [Mass/Vol] 38 mg/dL High 9-24 [facility] Comment on above: Order Comment: Shira feldman Type: BLOOD SPECIMENOrdering Facility: [facility] Address: [address] [place] [address] Performed By: #### 1 9123-9, [facility], 2776-05, 05119-0 ####[facility]ORATORYCLIA [id number] [address] STATES OF [facility] CBC W Auto Differential pane l (Bld)on 07-24-2021 Basophils (Bld) [#/Vol] 0.06 10*3/uL Normal <0.11 [facility] Comment on above: Order Comment: Speci men Type: BLOOD SPECIMENOrdering Facility: [facility] Address: [address] [place] [address] Performed By: #### 5 7021-8 ####[facility] LABORATORYCLIA [id number] [address] [place] Basophils/100 WBC (Bld) 0.6 % Normal [facility] Comment on above: Order Comment: Speci men Type: BLOOD SPECIMENOrdering Facility: [facility] Address: [address] [place] [address] Performed By: #### 5 7021-8 ####[facility]ORATORYCLIA [id number] [address] Differential cell count method Nom (Bld) Auto Normal [facility] Comment on above: Order Comment: Speci men Type: BLOOD SPECIMENOrdering Facility: [facility] Address: [address] [place] [address] Performed By: #### 5 7021-8 ####[facility]ORATORYCLIA [id number] [address] [place] Eosinophils (Bld) [#/Vol] 0.03 10*3/uL Normal <0.46 [facility] Comment on above: Order Comment: Speci men Type: BLOOD SPECIMENOrdering Facility: [facility] Address: [address] [place] [address] Performed By: #### 5 7021-8 ####[facility]ORATORYCLIA [id number] [address] STATES [facility] Eosinophils/100 WBC (Bld) 0.3 % Normal [facility] Comment on above: Order Comment: Speci men Type: BLOOD SPECIMENOrdering Facility: [facility] Address: [address] [place] [address] Performed By: #### 5 7021-8 ####[facility]ATORYCLIA [id number] [address] [place] Erythrocyte distribution width (RBC) [Ratio] 17.0 % High 11.5-15.0 [facility] Comment on above: Order Comment: Speci men Type: BLOOD SPECIMENOrdering Facility: [facility] Address: [address] [place] [address] Performed By: #### 5 7021-8 ####[facility]ORATORYCLIA [id number] [address] OF [facility] Hematocrit (Bld) [Volume fraction] 30.5 % Low 39.0-51.0 [facility] Comment on above: Order Comment: Speci men Type: BLOOD SPECIMENOrdering Facility: [facility] Address: [address] [place] [address] Performed By: #### 5 7021-8 ####[facility]ORATORYCLIA [id number] [address] OF [facility] Hemoglobin (Bld) [Mass/Vol] 9.0 g/dL Low 13.0-17.0 [facility] Comment on above: Order Comment: Speci men Type: BLOOD SPECIMENOrdering Facility: [facility] Address: [address] [place] [address] Performed By: #### 5 7021-8 ####[facility]ORATORYCLIA [id number] [address] IMMATURE GRAN % 0.5 % Normal [facility] Comment on above: Order Comment: Speci men Type: BLOOD SPECIMENOrdering Facility: [facility] Address: [address] [place] [address] Performed By: #### 5 7021-8 ####[facility]ORATORYCLIA [id number] [address] IMMATURE GRAN ABS 0.05 k/uL Normal <0.10 [facility] Comment on above: Order Comment: Speci men Type: BLOOD SPECIMENOrdering Facility: [facility] Address: [address] [place] [address] Performed By: #### 5 7021-8 ####[facility] LABORATORYCLIA [id number] [address] STATES OF [facility] Lymphocytes (Bld) [#/Vol] 1.68 10*3/uL Normal 1.00-4.00 [facility] Comment on above: Order Comment: Speci men Type: BLOOD SPECIMENOrdering Facility: [facility] Address: [address] [place] [address] Performed By: #### 5 7021-8 ####[facility]ORATORYCLIA [id number] [address] Lymphocytes/100 WBC (Bld) 16.2 % Normal [facility] Comment on above: Order Comment: Speci men Type: BLOOD SPECIMENOrdering Facility: [facility] Address: [address] [place] [address] Performed By: #### 5 7021-8 ####[facility]ORATORYCLIA [id number] [address] STATES OF [facility] MCH (RBC) [Entitic mass] 27.4 pg Normal 26.0-34.0 [facility] Comment on above: Order Comment: Speci men Type: BLOOD SPECIMENOrdering Facility: [facility] Address: [address] [place] [address] Performed By: #### 5 7021-8 ####[facility]ORATORYCLIA [id number] [address] [place] MCHC (RBC) [Mass/Vol] 29.5 g/dL Low 30.5-36.0 [facility] Comment on above: Order Comment: Speci men Type: BLOOD SPECIMENOrdering Facility: [facility] Address: [address] [place] [address] Performed By: #### 5 7021-8 ####[facility]ORATORYCLIA [id number] [address] MCV (RBC) [Entitic vol] 93.0 fL Normal 80.0-100.0 [facility] Comment on above: Order Comment: Speci men Type: BLOOD SPECIMENOrdering Facility: [facility] Address: [address] Performed By: #### 5 7021-8 ####[facility]ORATORYCLIA [id number] [place] [address] [place] Monocytes (Bld) [#/Vol] 0.63 10*3/uL Normal <0.87 [facility] Comment on above: Order Comment: Speci men Type: BLOOD SPECIMENOrdering Facility: [facility] Address: [address] [place] [address] Performed By: #### 5 7021-8 ####[facility]ORATORYCLIA [id number] [address] [place] Monocytes/100 WBC (Bld) 6.1 % Normal [facility] Comment on above: Order Comment: Speci men Type: BLOOD SPECIMENOrdering Facility: [facility] Address: [address] [place] [address] Performed By: #### 5 7021-8 ####[facility]ORATORYCLIA [id number] [address] [place] Neutrophils (Bld) [#/Vol] 7.91 10*3/uL High 1.45-7.50 [facility] Comment on above: Order Comment: Speci men Type: BLOOD SPECIMENOrdering Facility: [facility] Address: [address] [place] [address] Performed By: #### 5 7021-8 ####[facility]ORATORYCLIA [id number] [address] [place] Neutrophils/100 WBC (Bld) 76.3 % Normal [facility] Comment on above: Order Comment: Speci men Type: BLOOD SPECIMENOrdering Facility: [facility] Address: [address] [place] [address] Performed By: #### 5 7021-8 ####[facility]ORATORYCLIA [id number] [place] [address] [place] Nucleated RBC (Bld) [#/Vol] 10*3/uL Normal <0.01 [facility] Comment on above: Order Comment: Speci men Type: BLOOD SPECIMENOrdering Facility: [facility] Address: [address] [place] [address] Performed By: #### 5 7021-8 ####[facility] LABORATORYCLIA [id number] [address] OF [facility] Nucleated RBC/100 WBC (Bld) [Ratio] 0.0 /100 WBC Normal [facility] Comment on above: Order Comment: Speci men Type: BLOOD SPECIMENOrdering Facility: [facility] Address: [address] [place] [address] Performed By: #### 5 7021-8 ####[facility] LABORATORYCLIA [id number] [address] [place] Platelet mean volume (Bld) [Entitic vol] 11.1 fL Normal 9.0-12.7 [facility] Comment on above: Order Comment: Speci men Type: BLOOD SPECIMENOrdering Facility: [facility] Address: [address] [place] [id number] Performed By: #### 5 7021-8 ####[facility] LABORATORYCLIA [id number] [address] [place] Platelets (Bld) [#/Vol] 285 10*3/uL Normal 150-400 [facility] Comment on above: Order Comment: Speci men Type: BLOOD SPECIMENOrdering Facility: [facility] Address: [address] Performed By: #### 5 7021-8 ####[facility] LABORATORYCLIA [id number] [address] [place] RBC (Bld) [#/Vol] 3.28 10*6/uL Low 4.20-6.00 [facility] Comment on above: Order Comment: Speci men Type: BLOOD SPECIMENOrdering Facility: [facility] Address: [address] [place], [place] [address] Performed By: #### 5 7021-8 ####[facility] LABORATORYCLIA [id number] [place] [address] [place] WBC (Bld) [#/Vol] 10.36 10*3/uL Normal 3.70-11.00 [facility] Comment on above: Order Comment: Speci men Type: BLOOD SPECIMENOrdering Facility: [facility] Address: [address] [place] [address] Performed By: #### 5 7021-8 ####[facility] LABORATORYCLIA [id number] [address] [place] Legionella Ag Ur Qlon 2021 Legionella sp Ag Ql (U) Negative Normal Negative [facility] Comment on above: Order Comment: Speci men Type: URINE SPECIMENOrdering Facility: [facility] Address: [address] [place] [address] Performed By: #### 3 2781-7 ####[facility]ITALCLIA [id number] [address] [place] Magnesium SerPl-mCncon 07-24 Magnesium [Mass/Vol] 2.3 mg/dL Normal 1.7-2.3 [facility] Comment on above: Order Comment: Speci men Type: BLOOD SPECIMENOrdering Facility: [facility] Address: [address] [place] [address] Performed By: #### 1 9123-9, PROCAL, 2777-1, 30153-7 ####[facility] LABORATORYCLIA [id number] [place] [address] [place] NURSING PROGon 07-24-2021 NURSING PROG Normal [facility] PROCALCITONIN (LAB)on 2021 Procalcitonin [Mass/Vol] 0.15 ng/mL High <0.09 [facility] Comment on above: Order Comment: Speci men Type: BLOOD SPECIMENOrdering Facility: [facility] Address: [address] [place] [address] Result Comment: For a guided interpretation of test results, please visit the Change in Procalcitonin Calculator, [email or web address]. Performed By: #### 1 9123-9, PROCAL, 2777-1, 51685-7 ####[facility]ORATORYCLIA [id number] [address] Phosphate SerPl-mCncon 07-24 Phosphate [Mass/Vol] 3.9 mg/dL Normal 2.7-4.8 [facility] Comment on above: Order Comment: Speci men Type: BLOOD SPECIMENOrdering Facility: [facility] Address: [address] [place] [address] Performed By: #### 1 9123-9, KATIE, 2777-1, 50302-8 ####[facility]ITALCLIA [id number] [address] STREPTOCOCCUS PNEUMONIAE AGo n 07-24-2021 STREPTOCOCCUS PNEUMONIAE AG Normal [facility] Comment on above: Performed By: #### S PNAG ####[facility]OSPITALCLIA [id number] [address] aPTT PPPon 07-24-2021 aPTT Coag (PPP) [Time] 60.8 s High 23.0-32.4 [facility] Comment on above: Order Comment: Speci men Type: BLOOD SPECIMENOrdering Facility: [facility] Address: [address] [place] [address] Performed By: #### 1 4979-9 ####[facility]ATORYCLIA [id number] [address] aPTT Coag (PPP) [Time] 38.2 s High 23.0-32.4 [facility] Comment on above: Order Comment: Speci men Type: BLOOD SPECIMENOrdering Facility: [facility] Address: [address] [place] [address] Performed By: #### 1 4979-9 ####[facility]ATORYCLIA [id number] [address] aPTT Coag (PPP) [Time] 35.9 s High 23.0-32.4 [facility] Comment on above: Order Comment: Speci men Type: BLOOD SPECIMENOrdering Facility: [facility] Address: [address] [place] [address] Performed By: #### 1 4979-9 ####[facility]ATORYCLIA [id number] [place] [address] [place] aPTT Coag (PPP) [Time] 28.8 s Normal 23.0-32.4 [facility] Comment on above: Order Comment: Speci men Type: BLOOD SPECIMENOrdering Facility: [facility] Address: [address] [place] [address] Performed By: #### 1 4979-9 ####[facility]ATORYCLIA [id number] [address] [place] ALLIED HEALTHon 07-23-2021 ALLIED HEALTH Normal [facility] ALLIED HEALTH Normal [facility] ALLIED HEALTH Normal [facility] ARTERIAL BLOOD GASESon 07-23 Base excess Calc (Bld) [Moles/Vol] 4 mmol/L High 0-2 [facility] Comment on above: Order Comment: Speci men Type: ARTERIAL BLOOD SPECIMENOrdering Facility: [facility] Address: [address] [place] [address] Performed By: #### A LLBG ####[facility]ORATORYCLIA [id number] [place] [address] [place] Body temperature 100.58 [degF] Normal [facility] Comment on above: Order Comment: Speci men Type: ARTERIAL BLOOD SPECIMENOrdering Facility: [facility] Address: [address] [place] [address] Performed By: #### A LLBG ####[facility]ORATORYCLIA [id number] [address] [place] CALCIUM IONIZED, PH CORRECTED 1.26 mmol/L Normal 1.08-1.30 [facility] Comment on above: Order Comment: Speci men Type: ARTERIAL BLOOD SPECIMENOrdering Facility: [facility] Address: [address] [place] [address] Performed By: #### A LLBG ####[facility]ORATORYCLIA [id number] [address] STATES [facility] Calcium.ionized (BldV) [Mass/Vol] 1.25 mmol/L Normal 1.08-1.30 [facility] Comment on above: Order Comment: Speci men Type: ARTERIAL BLOOD SPECIMENOrdering Facility: [facility] Address: [address] [place] [address] Performed By: #### A LLBG ####[facility]ATORYCLIA [id number] [address] Carboxyhemoglobin (BldA) [Mass fraction] 1.2 % Normal 0.0-2.0 [facility] Comment on above: Order Comment: Speci men Type: ARTERIAL BLOOD SPECIMENOrdering Facility: [facility] Address: [address] [place] [address] Result Comment: Carb oxyhemoglobin Reference Range for Smokers: 2.0-8.0% Performed By: #### A LLBG ####[facility]ATORYCLIA [id number] [address] [place] CO2 (Bld) [Partial pressure] 46 mm Hg Normal 36-46 [facility] Comment on above: Order Comment: Speci men Type: ARTERIAL BLOOD SPECIMENOrdering Facility: [facility] Address: [address] [place] [address] Performed By: #### A LLBG ####[facility]ATORYCLIA [id number] [address] [place] CO2 [Moles/Vol] 27 mmol/L Normal 22-28 [facility] Comment on above: Order Comment: Speci men Type: ARTERIAL BLOOD SPECIMENOrdering Facility: [facility] Address: [address] [place] [address] Performed By: #### A LLBG ####[facility]ORATORYCLIA [id number] [address] OF [facility] CO2 adjusted to patient's actual temperature (Bld) [Partial pressure] 48 mmHg High 36-46 [facility] Comment on above: Order Comment: Speci men Type: ARTERIAL BLOOD SPECIMENOrdering Facility: [facility] Address: [address] [place] [place] [address] Performed By: #### A LLBG ####[facility]ATORYCLIA [id number] [address] [place] Glucose [Mass/Vol] 134 mg/dL High 60-105 [facility] Comment on above: Order Comment: Speci men Type: ARTERIAL BLOOD SPECIMENOrdering Facility: [facility] Address: [address] [place] [address] Performed By: #### A LLBG ####[facility]ATORYCLIA [id number] [address] [place] HCO3 (Bld) [Moles/Vol] 29 mmol/L High 22-26 [facility] Comment on above: Order Comment: Speci men Type: ARTERIAL BLOOD SPECIMENOrdering Facility: [facility] Address: [address] [place] [address] Performed By: #### A LLBG ####[facility]ORATORYCLIA [id number] [address] [place] Hematocrit (Bld) [Volume fraction] 31.4 % Low 39.0-51.0 [facility] Comment on above: Order Comment: Speci men Type: ARTERIAL BLOOD SPECIMENOrdering Facility: [facility] Address: [address] [place] [place] [address] Performed By: #### A LLBG ####[facility]ATORYCLIA [id number] [address] [place] Hemoglobin (Bld) [Mass/Vol] 10.2 g/dL Low 13.0-17.0 [facility] Comment on above: Order Comment: Speci men Type: ARTERIAL BLOOD SPECIMENOrdering Facility: [facility] Address: [facility] [place] [address] Performed By: #### A LLBG ####[facility]ATORYCLIA [id number] [address] Methemoglobin (Bld) [Mass fraction] % Normal 0.0-1.5 [facility] Comment on above: Order Comment: Speci men Type: ARTERIAL BLOOD SPECIMENOrdering Facility: [facility] Address: [address] [place] [place] [address] Performed By: #### A LLBG ####[facility]ATORYCLIA [id number] [address] [place] O2 THERAPY Ventilator Normal [facility] Comment on above: Order Comment: Speci men Type: ARTERIAL BLOOD SPECIMENOrdering Facility: [facility] Address: [address] [place] [address] Performed By: #### A LLBG ####[facility]ATORYCLIA [id number] [address] Oxygen (Bld) [Partial pressure] 113 mm Hg High 85-95 [facility] Comment on above: Order Comment: Speci men Type: ARTERIAL BLOOD SPECIMENOrdering Facility: [facility] Address: [address] Performed By: #### A LLBG ####[facility]ATORYCLIA [id number] [address] Oxygen adjusted to patient's actual temperature (Bld) [Partial pressure] 119 mmHg High 85-95 [facility] Comment on above: Order Comment: Speci men Type: ARTERIAL BLOOD SPECIMENOrdering Facility: [facility] Address: [address] Performed By: #### A LLBG ####[facility]ATORYCLIA [id number] [address] [place] OXYGEN SATURATION, ARTERIAL 98 % Normal 95-98 [facility] Comment on above: Order Comment: Speci men Type: ARTERIAL BLOOD SPECIMENOrdering Facility: [facility] Address: [address] Performed By: #### A LLBG ####[facility]ATORYCLIA [id number] [address] Oxyhemoglobin (BldA) [Mass fraction] 96 % Normal 95-98 [facility] Comment on above: Order Comment: Speci men Type: ARTERIAL BLOOD SPECIMENOrdering Facility: [facility] Address: [address] [place] [address] Performed By: #### A LLBG ####[facility]ATORYCLIA [id number] [address] [place] pH (Bld) 7.41 [pH] Normal 7.35-7.45 [facility] Comment on above: Order Comment: Speci men Type: ARTERIAL BLOOD SPECIMENOrdering Facility: [facility] Address: [address] [place] [address] Performed By: #### A LLBG ####[facility]ATORYCLIA [id number] [address] pH adjusted to patient's actual temperature (Bld) 7.40 Normal 7.35-7.45 [facility] Comment on above: Order Comment: Speci men Type: ARTERIAL BLOOD SPECIMENOrdering Facility: [facility] Address: [address] [place] [address] Performed By: #### A LLBG ####[facility]ATORYCLIA [id number] [address] [place] Potassium [Moles/Vol] 4.3 mmol/L Normal 3.5-5.0 [facility] Comment on above: Order Comment: Speci men Type: ARTERIAL BLOOD SPECIMENOrdering Facility: [facility] Address: [address] [place] [address] Performed By: #### A LLBG ####[facility]ATORYCLIA [id number] [address] [place] Sodium [Moles/Vol] 144 mmol/L Normal 136-144 [facility] Comment on above: Order Comment: Speci men Type: ARTERIAL BLOOD SPECIMENOrdering Facility: [facility] Address: [address] [place] [address] Performed By: #### A LLBG ####[facility]ATORYCLIA [id number] [address] OF [facility] Bacteria CSF Culton 07-24-19 22 Bacteria identified Cx Nom (CSF) Abnormal [facility] Comment on above: Performed By: #### 6 06-4 ####[facility]ATORYCLIA [id number] [address] [place] Basic metabolic 2000 panelon 07-23-2021 Anion gap [Moles/Vol] 12 mmol/L Normal 9-18 [facility] Comment on above: Order Comment: Speci men Type: BLOOD SPECIMENOrdering Facility: [facility] Address: [address] [place] [address] Performed By: #### 2 4321-2 ####[facility]ATORYCLIA [id number] [address] [place] Calcium [Mass/Vol] 9.7 mg/dL Normal 8.5-10.2 [facility] Comment on above: Order Comment: Speci men Type: BLOOD SPECIMENOrdering Facility: [facility] Address: [address] [place] [address] Performed By: #### 2 4321-2 ####[facility]ATORYCLIA [id number] [address] [place] Chloride [Moles/Vol] 105 mmol/L Normal 97-105 [facility] Comment on above: Order Comment: Speci men Type: BLOOD SPECIMENOrdering Facility: [facility] Address: [address] [place] [address] Performed By: #### 2 4321-2 ####[facility]ATORYCLIA [id number] [address] [place] CO2 [Moles/Vol] 28 mmol/L Normal 22-30 [facility] Comment on above: Order Comment: Speci men Type: BLOOD SPECIMENOrdering Facility: [facility] Address: [address] [place] [address] Performed By: #### 2 4321-2 ####[facility]OSPITALCLIA [id number] [address] STATES OF [facility] Creatinine [Mass/Vol] 0.78 mg/dL Normal 0.73-1.22 [facility] Comment on above: Order Comment: Speci men Type: BLOOD SPECIMENOrdering Facility: [facility] Address: [address] [address] Performed By: #### 2 4321-2 ####[facility]ATORYCLIA [id number] [address] ESTIMATED GLOMERULAR FILTRATION RATE 97 mL/min/1.73m??? Normal >=60 [facility] Comment on above: Order Comment: Speci men Type: BLOOD SPECIMENOrdering Facility: [facility] Address: [address] [place] [address] Result Comment: Luzmaria mated Glomerular Filtration Rate [...] actual GFR. Performed By: #### 2 4321-2 ####[facility]ATORYCLIA [id number] [address] [place] Glucose [Mass/Vol] 127 mg/dL High 74-99 [facility] Comment on above: Order Comment: Speci men Type: BLOOD SPECIMENOrdering Facility: [facility] Address: [address] [address] Result Comment: The [place] [employer] (ADA) provides guidance for cutoff [...] Standards of Medical Care in Diabetes 2016, [place] [employer]. Diabetes Care. 2016.39(Suppl 1). Performed By: #### 2 4321-2 ####[facility]ATORYCLIA [id number] [place] [address] [place] Potassium [Moles/Vol] 4.3 mmol/L Normal 3.7-5.1 [facility] Comment on above: Order Comment: Shira feldman Type: BLOOD SPECIMENOrdering Facility: [facility] Address: [address] [place] [address] Performed By: #### 2 4321-2 ####[facility]PITALCLIA [id number] [address] [place] Sodium [Moles/Vol] 145 mmol/L High 136-144 [facility] Comment on above: Order Comment: Shira feldman Type: BLOOD SPECIMENOrdering Facility: [facility] Address: [address] [place] [address] Performed By: #### 2 4321-2 ####[facility]ATORYCLIA [id number] [address] [place] Urea nitrogen [Mass/Vol] 37 mg/dL High 9-24 [facility] Comment on above: Order Comment: Johni francia Type: BLOOD SPECIMENOrdering Facility: [facility] Address: [address] [place] [address] Performed By: #### 2 4321-2 ####[facility]ORATORYCLIA [id number] [place] [address] [place] C diff Tox gens Stl Ql MEGAN+p robeon 07-23-2021 C. difficile toxin genes MEGAN+probe Ql (Stl) Negative Normal Negative for C. difficile toxin by PCR [facility] Comment on above: Order Comment: Johni francia Type: STOOL SPECIMENOrdering Facility: [facility] Address: [address] [address] Performed By: #### 5 4067-4 ####[facility]ATORYCLIA [id number] [address] STATES [facility] CBC W Auto Differential pane l (Bld)on 07-23-2021 Basophils (Bld) [#/Vol] 0.07 10*3/uL Normal <0.11 [facility] Comment on above: Order Comment: Speci men Type: BLOOD SPECIMENOrdering Facility: [facility] Address: [address] [place] [address] Performed By: #### 5 7021-8 ####[facility]ATORYCLIA [id number] [address] Basophils/100 WBC (Bld) 0.5 % Normal [facility] Comment on above: Order Comment: Speci men Type: BLOOD SPECIMENOrdering Facility: [facility] Address: [address] [place] [address] Performed By: #### 5 7021-8 ####[facility]ATORYCLIA [id number] [address] Differential cell count method Nom (Bld) Auto Normal [facility] Comment on above: Order Comment: Speci men Type: BLOOD SPECIMENOrdering Facility: [facility] Address: [address] [place] [address] Performed By: #### 5 7021-8 ####[facility]ATORYCLIA [id number] [address] STATES [facility] Eosinophils (Bld) [#/Vol] 10*3/uL Normal <0.46 [facility] Comment on above: Order Comment: Speci men Type: BLOOD SPECIMENOrdering Facility: [facility] Address: [address] [place] [address] Performed By: #### 5 7021-8 ####[facility]ATORYCLIA [id number] [address] Eosinophils/100 WBC (Bld) 0.2 % Normal [facility] Comment on above: Order Comment: Speci men Type: BLOOD SPECIMENOrdering Facility: [facility] Address: [address] [place] [address] Performed By: #### 5 7021-8 ####[facility]ATORYCLIA [id number] [address] Erythrocyte distribution width (RBC) [Ratio] 16.7 % High 11.5-15.0 [facility] Comment on above: Order Comment: Speci men Type: BLOOD SPECIMENOrdering Facility: [facility] Address: [address] [place] [address] Performed By: #### 5 7021-8 ####[facility]ATORYCLIA [id number] [address] Hematocrit (Bld) [Volume fraction] 32.8 % Low 39.0-51.0 [facility] Comment on above: Order Comment: Speci men Type: BLOOD SPECIMENOrdering Facility: [facility] Address: [address] [place] [address] Performed By: #### 5 7021-8 ####[facility]ATORYCLIA [id number] [address] OF [facility] Hemoglobin (Bld) [Mass/Vol] 9.7 g/dL Low 13.0-17.0 [facility] Comment on above: Order Comment: Speci men Type: BLOOD SPECIMENOrdering Facility: [facility] Address: [address] [place] [address] Performed By: #### 5 7021-8 ####[facility]ATORYCLIA [id number] [address] [place] IMMATURE GRAN % 0.7 % Normal [facility] Comment on above: Order Comment: Speci men Type: BLOOD SPECIMENOrdering Facility: [facility] Address: [address] [place] [address] Performed By: #### 5 7021-8 ####[facility]ATORYCLIA [id number] [address] IMMATURE GRAN ABS 0.09 k/uL Normal <0.10 [facility] Comment on above: Order Comment: Speci men Type: BLOOD SPECIMENOrdering Facility: [facility] Address: [address] [place] [address] Performed By: #### 5 7021-8 ####[facility]ATORYCLIA [id number] [address] Lymphocytes (Bld) [#/Vol] 1.94 10*3/uL Normal 1.00-4.00 [facility] Comment on above: Order Comment: Speci men Type: BLOOD SPECIMENOrdering Facility: [facility] Address: [address] [place] [address] Performed By: #### 5 7021-8 ####[facility]ORYCLIA [id number] [address] Lymphocytes/100 WBC (Bld) 14.6 % Normal [facility] Comment on above: Order Comment: Speci men Type: BLOOD SPECIMENOrdering Facility: [facility] Address: [address] [place] [address] Performed By: #### 5 7021-8 ####[facility]ATORYCLIA [id number] [address] MCH (RBC) [Entitic mass] 27.2 pg Normal 26.0-34.0 [facility] Comment on above: Order Comment: Speci men Type: BLOOD SPECIMENOrdering Facility: [facility] Address: [address] [place] [address] Performed By: #### 5 7021-8 ####[facility]ATORYCLIA [id number] [address] MCHC (RBC) [Mass/Vol] 29.6 g/dL Low 30.5-36.0 [facility] Comment on above: Order Comment: Speci men Type: BLOOD SPECIMENOrdering Facility: [facility] Address: [address] [place] [address] Performed By: #### 5 7021-8 ####[facility]ATORYCLIA [id number] [address] [place] MCV (RBC) [Entitic vol] 92.1 fL Normal 80.0-100.0 [facility] Comment on above: Order Comment: Speci men Type: BLOOD SPECIMENOrdering Facility: [facility] Address: [address] [place] [address] Performed By: #### 5 7021-8 ####[facility]ATORYCLIA [id number] [address] [place] Monocytes (Bld) [#/Vol] 0.74 10*3/uL Normal <0.87 [facility] Comment on above: Order Comment: Speci men Type: BLOOD SPECIMENOrdering Facility: [facility] Address: [address] [place] [address] Performed By: #### 5 7021-8 ####[facility]ATORYCLIA [id number] [address] STATES [facility] Monocytes/100 WBC (Bld) 5.6 % Normal [facility] Comment on above: Order Comment: Speci men Type: BLOOD SPECIMENOrdering Facility: [facility] Address: [address] [place] [address] Performed By: #### 5 7021-8 ####[facility]ATORYCLIA [id number] [address] [place] Neutrophils (Bld) [#/Vol] 10.43 10*3/uL High 1.45-7.50 [facility] Comment on above: Order Comment: Speci men Type: BLOOD SPECIMENOrdering Facility: [facility] Address: [address] [place] [address] Performed By: #### 5 7021-8 ####[facility]ORYCLIA [id number] [address] [place] Neutrophils/100 WBC (Bld) 78.4 % Normal [facility] Comment on above: Order Comment: Speci men Type: BLOOD SPECIMENOrdering Facility: [facility] Address: [address] Performed By: #### 5 7021-8 ####[facility]ATORYCLIA [id number] [address] Nucleated RBC (Bld) [#/Vol] 10*3/uL Normal <0.01 [facility] Comment on above: Order Comment: Speci men Type: BLOOD SPECIMENOrdering Facility: [facility] Address: [address] Performed By: #### 5 7021-8 ####[facility]ATORYCLIA [id number] [address] [place] Nucleated RBC/100 WBC (Bld) [Ratio] 0.0 /100 WBC Normal [facility] Comment on above: Order Comment: Speci men Type: BLOOD SPECIMENOrdering Facility: [facility] Address: [address] Performed By: #### 5 7021-8 ####[facility]ATORYCLIA [id number] [address] [place] Platelet mean volume (Bld) [Entitic vol] 11.0 fL Normal 9.0-12.7 [facility] Comment on above: Order Comment: Speci men Type: BLOOD SPECIMENOrdering Facility: [facility] Address: [address] Performed By: #### 5 7021-8 ####[facility]ORYCLIA [id number] [address] [place] Platelets (Bld) [#/Vol] 381 10*3/uL Normal 150-400 [facility] Comment on above: Order Comment: Speci men Type: BLOOD SPECIMENOrdering Facility: [facility] Address: [address] [place] [address] Performed By: #### 5 7021-8 ####[facility]ATORYCLIA [id number] [place] [address] [place] RBC (Bld) [#/Vol] 3.56 10*6/uL Low 4.20-6.00 [facility] Comment on above: Order Comment: Speci men Type: BLOOD SPECIMENOrdering Facility: [facility] Address: [address] [place] [address] Performed By: #### 5 7021-8 ####[facility]ATORYCLIA [id number] [place] [address] [place] WBC (Bld) [#/Vol] 13.29 10*3/uL High 3.70-11.00 [facility] Comment on above: Order Comment: Speci men Type: BLOOD SPECIMENOrdering Facility: [facility] Address: [address] [place] [address] Performed By: #### 5 7021-8 ####[facility]ATORYCLIA [id number] [address] OF [facility] CONSULT PROGon 07-23-2021 CONSULT PROG Normal [facility] CONSULT PROG Normal [facility] CSF MANUAL DIFFon 07-23-2021 DIF TTL, CSF 100 cells counted Normal [facility] Comment on above: Order Comment: Speci men Type: CEREBROSPINAL FLUIDOrdering Facility: [facility] Address: [address] [place] [address] Performed By: #### L [id number], [id number] ####[facility] LABORATORYCLIA [id number] [place] [address] [place] LYMPH%, CSF 2 % Low 50-90 [facility] Comment on above: Order Comment: Speci men Type: CEREBROSPINAL FLUIDOrdering Facility: [facility] Address: [address] [place] [address] Performed By: #### L [id number], [id number], 14518-1 ####[facility] LABORATORYCLIA [id number] [address] [place] MONO%, CSF 9 % Low 10-50 [facility] Comment on above: Order Comment: Speci men Type: CEREBROSPINAL FLUIDOrdering Facility: [facility] Address: [address] [place] [address] Performed By: #### L [id number], KLV1659, 87569-9 ####[facility]ATORYCLIA [id number] [address] [place] NEUT%, CSF 89 % High 0-3 [facility] Comment on above: Order Comment: Speci men Type: CEREBROSPINAL FLUIDOrdering Facility: [facility] Address: [address] [place] [address] Performed By: #### L [id number], [id number], 83610-2 ####[facility]ORATORYCLIA [id number] [address] CSF PATHOLOGIST INTERP (LAB REFLEX ORDER-NO BILL)on 07-23-2021 CSF STAFF REVIEW Negative for maligna nt cells. Numerous bacterial organisms present, cocci in pairs and chains. Recommend correlation with CSF culture results. Normal [facility] Comment on above: Order Comment: Speci men Type: CEREBROSPINAL FLUIDOrdering Facility: [facility] Address: [address] [place] [address] Performed By: #### L [id number], [id number], 22147-1 ####[facility]ORATORYCLIA [id number] [address] Pathologist name Reviewed by Amador Stevens MD [facility] Comment on above: Order Comment: Speci men Type: CEREBROSPINAL FLUIDOrdering Facility: [facility] Address: [address] [place] [address] Performed By: #### L [id number], IMS2078, 54444-3 ####[facility]ORATORYCLIA [id number] [address] [place] CT BRAIN WO IVCONon 07-24-19 CT BRAIN WO IVCON Normal [facility] Cell count panel (CSF)on Clarity (CSF) Clear Normal Clear [facility] Comment on above: Order Comment: Speci men Type: CEREBROSPINAL FLUIDOrdering Facility: [facility] Address: [address] [place] [address] Performed By: #### L [id number], [id number], 79223-1 ####[facility]ATORYCLIA [id number] [address] Clarity (Unsp spec) Not Indicated Normal Clear [facility] Comment on above: Order Comment: Speci men Type: CEREBROSPINAL FLUIDOrdering Facility: [facility] Address: [address] [place] [address] Performed By: #### L [id number], [id number], 48993-9 ####[facility]ATORYCLIA [id number] [address] Color (CSF) Colorless Normal Colorless [facility] Comment on above: Order Comment: Speci men Type: CEREBROSPINAL FLUIDOrdering Facility: [facility] Address: [address] [place] [address] Performed By: #### L [id number], [id number], 24106-1 ####[facility]ATORYCLIA [id number] [address] Color (Spun CSF) Not Indicated Normal Colorless [facility] Comment on above: Order Comment: Speci men Type: CEREBROSPINAL FLUIDOrdering Facility: [facility] Address: [address] [place] [address] Performed By: #### L [id number], [id number], 87840-7 ####[facility]ATORYCLIA [id number] [address] CSF [employer] Normal [facility] Comment on above: Order Comment: Speci men Type: CEREBROSPINAL FLUIDOrdering Facility: [facility] Address: [address] [place] [address] Performed By: #### L [id number], [id number], 31736-3 ####[facility]ATORYCLIA [id number] [address] RBC Manual cnt (CSF) [#/Vol] 7 cells/uL High 0-5 [facility] Comment on above: Order Comment: Speci men Type: CEREBROSPINAL FLUIDOrdering Facility: [facility] Address: [address] [place] [address] Performed By: #### L [id number], [id number], 19968-3 ####[facility]ATORYCLIA [id number] [address] WBC Manual cnt (CSF) [#/Vol] 193 cells/uL High 0-5 [facility] Comment on above: Order Comment: Speci men Type: CEREBROSPINAL FLUIDOrdering Facility: [facility] Address: [address] [place] [address] Performed By: #### L [id number], [id number], 35181-4 ####[facility]ORATORYCLIA [id number] [address] Glucose [facility] 2 Glucose (CSF) [Mass/Vol] 81 mg/dL High 40-70 [facility] Comment on above: Order Comment: Speci men Type: CEREBROSPINAL FLUIDOrdering Facility: [facility] Address: [address] [place] [address] Result Comment: Lumb ar CSF glucose values of healthy patients are approximately 60% of the plasma values and must always be compared with a concurrently measured plasma value for adequate clinical interpretation.References: 1. Glucose HK (GLUC3) [package insert V 12.0 Qatari]. [employer], [place], [place]. September 2015. 2. Michelle Moore, Loki, H. (2015). Chapter 7: Glucose and Lactate. F. Irina rose al.(eds.), Cerebrospinal Fluid in Clinical Neurology. [place]: [employer]. Performed By: #### 2 342-4, 2880-3 ####[facility]ORATORYCLIA [id number] [address] [place] NURSING PROGon 07-23-2021 NURSING PROG Normal [facility] NURSING PROG Normal [facility] Prot CSF-ncon 07-23-2021 Protein (CSF) [Mass/Vol] 68 mg/dL High 15-45 [facility] Comment on above: Order Comment: Speci men Type: CEREBROSPINAL FLUIDOrdering Facility: [facility] Address: [address] [place] [address] Performed By: #### 2 342-4, 2880-3 ####[facility]ORATORYCLIA [id number] [address] Urinalysis complete panel (U )on 07-23-2021 Bilirubin Ql (U) Negative Normal Negative [facility] Comment on above: Order Comment: Speci men Type: URINE SPECIMENOrdering Facility: [facility] Address: [address] [place] [address] Performed By: #### 2 4356-8 ####[facility]ORATORYCLIA [id number] [address] Clarity (Unsp spec) Clear Normal Clear [facility] Comment on above: Order Comment: Speci men Type: URINE SPECIMENOrdering Facility: [facility] Address: [address] [place] [address] Performed By: #### 2 4356-8 ####[facility]ATORYCLIA [id number] [address] Color (U) Light Yellow Normal yellow [facility] Comment on above: Order Comment: Speci men Type: URINE SPECIMENOrdering Facility: [facility] Address: [address] [place] [address] Performed By: #### 2 4356-8 ####[facility]ATORYCLIA [id number] [address] Glucose Test strip (U) [Mass/Vol] Negative Normal Negative [facility] Comment on above: Order Comment: Speci men Type: URINE SPECIMENOrdering Facility: [facility] Address: [address] [place] [address] Performed By: #### 2 4356-8 ####[facility]ORATORYCLIA [id number] [address] [place] Hemoglobin Ql (U) Negative Normal Negative [facility] Comment on above: Order Comment: Speci men Type: URINE SPECIMENOrdering Facility: [facility] Address: [address] [place] [address] Performed By: #### 2 4356-8 ####[facility]ORATORYCLIA [id number] [address] [place] Ketones Ql (U) Negative Normal Negative [facility] Comment on above: Order Comment: Speci men Type: URINE SPECIMENOrdering Facility: [facility] Address: [address] [place] [address] Performed By: #### 2 4356-8 ####[facility]ATORYCLIA [id number] [address] Leukocyte esterase Test strip Ql (U) Negative Normal Negative [facility] Comment on above: Order Comment: Speci men Type: URINE SPECIMENOrdering Facility: [facility] Address: [address] [place] [address] Performed By: #### 2 4356-8 ####[facility]ATORYCLIA [id number] [address] Nitrite Ql (U) Negative Normal Negative [facility] Comment on above: Order Comment: Speci men Type: URINE SPECIMENOrdering Facility: [facility] Address: [address] [place] [address] Performed By: #### 2 4356-8 ####[facility]ATORYCLIA [id number] [address] [place] pH (U) 6.0 [pH] Normal 5.0-8.0 [facility] Comment on above: Order Comment: Speci men Type: URINE SPECIMENOrdering Facility: [facility] Address: [address] [place] [address] Performed By: #### 2 4356-8 ####[facility]ORATORYCLIA [id number] [place] [address] [place] Protein (U) [Mass/Vol] 1+ Abnormal Negative [facility] Comment on above: Order Comment: Speci men Type: URINE SPECIMENOrdering Facility: [facility] Address: [address] [place] [address] Performed By: #### 2 4356-8 ####[facility]ORATORYCLIA [id number] [address] [place] RBC LM.HPF (Urine sed) [#/Area] 0-3 /HPF Normal 0-3 /HPF [facility] Comment on above: Order Comment: Speci men Type: URINE SPECIMENOrdering Facility: [facility] Address: [address] [place] [address] Performed By: #### 2 4356-8 ####[facility]ORATORYCLIA [id number] [address] Specific gravity (U) [Rel density] 1.018 Normal 1.005-1.030 [facility] Comment on above: Order Comment: Speci men Type: URINE SPECIMENOrdering Facility: [facility] Address: [address] [place] [address] Performed By: #### 2 4356-8 ####[facility]ATORYCLIA [id number] [address] Urobilinogen Ql (U) Normal Normal Negative [facility] Comment on above: Order Comment: Speci men Type: URINE SPECIMENOrdering Facility: [facility] Address: [address] [place] [address] Performed By: #### 2 4356-8 ####[facility]ORATORYCLIA [id number] [address] [place] WBC LM.HPF (Urine sed) [#/Area] 0-5 /HPF Normal 0-5 /HPF [facility] Comment on above: Order Comment: Speci men Type: URINE SPECIMENOrdering Facility: [facility] Address: [address] [place] [address] Performed By: #### 2 4356-8 ####[facility]ORATORYCLIA [id number] [address] Vancomycin random [Mass/Vol] on 07-23-2021 Vancomycin [Mass/Vol] 12.9 ug/mL Normal 10.0-20.0 [facility] Comment on above: Order Comment: Speci men Type: BLOOD SPECIMENOrdering Facility: [facility] Address: [address] [place] [address] Result Comment: Refe rence ranges and high/low indicator flags are provided as general guidelines only. The treating physician must determine appropriate target levels/dosing based on the specific clinical situation. Performed By: #### 4 091-5 ####[facility]ORATORYCLIA [id number] [address] [facility] XR CHEST 1V FRONTALon 2021 XR CHEST 1V FRONTAL Normal [facility] XR CHEST 1V FRONTAL Normal [facility] aPTT PPPon 07-23-2021 aPTT Coag (PPP) [Time] 32.3 s Normal 23.0-32.4 [facility] Comment on above: Order Comment: Speci men Type: BLOOD SPECIMENOrdering Facility: [facility] Address: [address] [place] [address] Performed By: #### 1 4979-9 ####[facility]ATORYCLIA [id number] [address] aPTT Coag (PPP) [Time] 57.9 s High 23.0-32.4 [facility] Comment on above: Order Comment: Speci men Type: BLOOD SPECIMENOrdering Facility: [facility] Address: [address] [place] [place] [address] Performed By: #### 1 4979-9 ####[facility]ATORYCLIA [id number] [address] aPTT Coag (PPP) [Time] 46.3 s High 23.0-32.4 [facility] Comment on above: Order Comment: Speci men Type: BLOOD SPECIMENOrdering Facility: [facility] Address: [address] [place] [place] [address] Performed By: #### 1 4979-9 ####[facility]ORATORYCLIA [id number] [place] [address] [place] Basic metabolic 2000 panelon 07-22-2021 Anion gap [Moles/Vol] 8 mmol/L Low 9-18 [facility] Comment on above: Order Comment: Speci men Type: BLOOD SPECIMENOrdering Facility: [facility] Address: [address] [place] [address] Performed By: #### 2 4321-2 ####[facility]ORATORYCLIA [id number] [place] [address] [place] Calcium [Mass/Vol] 9.5 mg/dL Normal 8.5-10.2 [facility] Comment on above: Order Comment: Speci men Type: BLOOD SPECIMENOrdering Facility: [facility] Address: [address] [place] [address] Performed By: #### 2 4321-2 ####[facility]ORATORYCLIA [id number] [place] [address] [place] Chloride [Moles/Vol] 105 mmol/L Normal 97-105 [facility] Comment on above: Order Comment: Speci men Type: BLOOD SPECIMENOrdering Facility: [facility] Address: [address] [place] [address] Performed By: #### 2 4321-2 ####[facility]ORATORYCLIA [id number] [place] [address] [place] CO2 [Moles/Vol] 32 mmol/L High 22-30 [facility] Comment on above: Order Comment: Speci men Type: BLOOD SPECIMENOrdering Facility: [facility] Address: [address] [place] [address] Performed By: #### 2 4321-2 ####[facility] LABORATORYCLIA [id number] [place] [address] [place] Creatinine [Mass/Vol] 0.75 mg/dL Normal 0.73-1.22 [facility] Comment on above: Order Comment: Shira feldman Type: BLOOD SPECIMENOrdering Facility: [facility] Address: [address] [address] Performed By: #### 2 4321-2 ####[facility]ORATORYCLIA [id number] [address] [place] ESTIMATED GLOMERULAR FILTRATION RATE 98 mL/min/1.73m??? Normal >=60 [facility] Comment on above: Order Comment: Shira feldman Type: BLOOD SPECIMENOrdering Facility: [facility] Address: [address] [place] [address] Result Comment: Luzmaria mated Glomerular Filtration Rate [...] actual GFR. Performed By: #### 2 4321-2 ####[facility]ATORYCLIA [id number] [place] [address] [place] Glucose [Mass/Vol] 128 mg/dL High 74-99 [facility] Comment on above: Order Comment: Shira feldman Type: BLOOD SPECIMENOrdering Facility: [facility] Address: [address] [place] [address] Result Comment: The [place] Diabetes Association (ADA) provides guidance for cutoff [...] Standards of Medical Care in Diabetes 2016, [place] Diabetes Association. Diabetes Care. 2016.39(Suppl 1). Performed By: #### 2 4321-2 ####[facility]ORATORYCLIA [id number] [address] [place] Potassium [Moles/Vol] 3.7 mmol/L Normal 3.7-5.1 [facility] Comment on above: Order Comment: Speci men Type: BLOOD SPECIMENOrdering Facility: [facility] Address: [address] [place] [address] Performed By: #### 2 4321-2 ####[facility]ORATORYCLIA [id number] [place] [address] [place] Sodium [Moles/Vol] 145 mmol/L High 136-144 [facility] Comment on above: Order Comment: Speci men Type: BLOOD SPECIMENOrdering Facility: [facility] Address: [address] [place] [address] Performed By: #### 2 4321-2 ####[facility]ORATORYCLIA [id number] [address] STATES [facility] Urea nitrogen [Mass/Vol] 39 mg/dL High 9-24 [facility] Comment on above: Order Comment: Speci men Type: BLOOD SPECIMENOrdering Facility: [facility] Address: [address] [place] [address] Performed By: #### 2 4321-2 ####[facility]ORATORYCLIA [id number] [address] [place] CASE MANAGEMon 07-22-2021 CASE MANAGEM Normal [facility] CBC W Auto Differential pane l (Bld)on 07-22-2021 Basophils (Bld) [#/Vol] 0.06 10*3/uL Normal <0.11 [facility] Comment on above: Order Comment: Speci men Type: BLOOD SPECIMENOrdering Facility: [facility] Address: [address] [place] [address] Performed By: #### 5 7021-8 ####[facility]ORATORYCLIA [id number] [address] [place] Basophils/100 WBC (Bld) 0.5 % Normal [facility] Comment on above: Order Comment: Speci men Type: BLOOD SPECIMENOrdering Facility: [facility] Address: [address] [place] [address] Performed By: #### 5 7021-8 ####[facility]ORATORYCLIA [id number] [address] [place] Differential cell count method Nom (Bld) Auto Normal [facility] Comment on above: Order Comment: Speci men Type: BLOOD SPECIMENOrdering Facility: [facility] Address: [address] [place] [address] Performed By: #### 5 7021-8 ####[facility]ATORYCLIA [id number] [address] [place] Eosinophils (Bld) [#/Vol] 0.44 10*3/uL Normal <0.46 [facility] Comment on above: Order Comment: Speci men Type: BLOOD SPECIMENOrdering Facility: [facility] Address: [address] [place] [address] Performed By: #### 5 7021-8 ####[facility]ATORYCLIA [id number] [address] [place] Eosinophils/100 WBC (Bld) 3.9 % Normal [facility] Comment on above: Order Comment: Speci men Type: BLOOD SPECIMENOrdering Facility: [facility] Address: [address] [place] [address] Performed By: #### 5 7021-8 ####[facility]ATORYCLIA [id number] [address] [place] Erythrocyte distribution width (RBC) [Ratio] 17.0 % High 11.5-15.0 [facility] Comment on above: Order Comment: Speci men Type: BLOOD SPECIMENOrdering Facility: [facility] Address: [address] [place] [address] Performed By: #### 5 7021-8 ####[facility]ATORYCLIA [id number] [address] Hematocrit (Bld) [Volume fraction] 32.0 % Low 39.0-51.0 [facility] Comment on above: Order Comment: Speci men Type: BLOOD SPECIMENOrdering Facility: [facility] Address: [address] [place] [address] Performed By: #### 5 7021-8 ####[facility]ATORYCLIA [id number] [address] [place] Hemoglobin (Bld) [Mass/Vol] 9.3 g/dL Low 13.0-17.0 [facility] Comment on above: Order Comment: Speci men Type: BLOOD SPECIMENOrdering Facility: [facility] Address: [address] [place] [address] Performed By: #### 5 7021-8 ####[facility]ORATORYCLIA [id number] [address] IMMATURE GRAN % 0.5 % Normal [facility] Comment on above: Order Comment: Speci men Type: BLOOD SPECIMENOrdering Facility: [facility] Address: [address] [place] [address] Performed By: #### 5 7021-8 ####[facility]ATORYCLIA [id number] [address] IMMATURE GRAN ABS 0.06 k/uL Normal <0.10 [facility] Comment on above: Order Comment: Speci men Type: BLOOD SPECIMENOrdering Facility: [facility] Address: [address] [place] [address] Performed By: #### 5 7021-8 ####[facility]ORATORYCLIA [id number] [address] [place] Lymphocytes (Bld) [#/Vol] 1.83 10*3/uL Normal 1.00-4.00 [facility] Comment on above: Order Comment: Speci men Type: BLOOD SPECIMENOrdering Facility: [facility] Address: [address] [place] [address] Performed By: #### 5 7021-8 ####[facility]ORATORYCLIA [id number] [address] Lymphocytes/100 WBC (Bld) 16.1 % Normal [facility] Comment on above: Order Comment: Speci men Type: BLOOD SPECIMENOrdering Facility: [facility] Address: [address] [place] [address] Performed By: #### 5 7021-8 ####[facility]ORATORYCLIA [id number] [address] MCH (RBC) [Entitic mass] 27.0 pg Normal 26.0-34.0 [facility] Comment on above: Order Comment: Speci men Type: BLOOD SPECIMENOrdering Facility: [facility] Address: [address] [place] [address] Performed By: #### 5 7021-8 ####[facility]ORATORYCLIA [id number] [address] MCHC (RBC) [Mass/Vol] 29.1 g/dL Low 30.5-36.0 [facility] Comment on above: Order Comment: Speci men Type: BLOOD SPECIMENOrdering Facility: [facility] Address: [address] [place] [address] Performed By: #### 5 7021-8 ####[facility]ORATORYCLIA [id number] [address] MCV (RBC) [Entitic vol] 92.8 fL Normal 80.0-100.0 [facility] Comment on above: Order Comment: Speci men Type: BLOOD SPECIMENOrdering Facility: [facility] Address: [address] [place] [address] Performed By: #### 5 7021-8 ####[facility]ORATORYCLIA [id number] [address] Monocytes (Bld) [#/Vol] 0.87 10*3/uL High <0.87 [facility] Comment on above: Order Comment: Speci men Type: BLOOD SPECIMENOrdering Facility: [facility] Address: [address] [place] [address] Performed By: #### 5 7021-8 ####[facility] LABORATORYCLIA [id number] [address] [place] Monocytes/100 WBC (Bld) 7.6 % Normal [facility] Comment on above: Order Comment: Speci men Type: BLOOD SPECIMENOrdering Facility: [facility] Address: [address] [place] [address] Performed By: #### 5 7021-8 ####[facility]ORATORYCLIA [id number] [place] [address] [place] Neutrophils (Bld) [#/Vol] 8.12 10*3/uL High 1.45-7.50 [facility] Comment on above: Order Comment: Speci men Type: BLOOD SPECIMENOrdering Facility: [facility] Address: [address] [place] [address] Performed By: #### 5 7021-8 ####[facility]ORATORYCLIA [id number] [address] [place] Neutrophils/100 WBC (Bld) 71.4 % Normal [facility] Comment on above: Order Comment: Speci men Type: BLOOD SPECIMENOrdering Facility: [facility] Address: [address] [place] [address] Performed By: #### 5 7021-8 ####[facility]ORATORYCLIA [id number] [place] [address] [place] Nucleated RBC (Bld) [#/Vol] 10*3/uL Normal <0.01 [facility] Comment on above: Order Comment: Speci men Type: BLOOD SPECIMENOrdering Facility: [facility] Address: [address] [place] [address] Performed By: #### 5 7021-8 ####[facility] LABORATORYCLIA [id number] [place] [address] [place] Nucleated RBC/100 WBC (Bld) [Ratio] 0.0 /100 WBC Normal [facility] Comment on above: Order Comment: Speci men Type: BLOOD SPECIMENOrdering Facility: [facility] Address: [address] [place] [address] Performed By: #### 5 7021-8 ####[facility]ORATORYCLIA [id number] [place] [address] [place] Platelet mean volume (Bld) [Entitic vol] 10.8 fL Normal 9.0-12.7 [facility] Comment on above: Order Comment: Speci men Type: BLOOD SPECIMENOrdering Facility: [facility] Address: [address] [place] [address] Performed By: #### 5 7021-8 ####[facility]ATORYCLIA [id number] [address] [place] Platelets (Bld) [#/Vol] 362 10*3/uL Normal 150-400 [facility] Comment on above: Order Comment: Speci men Type: BLOOD SPECIMENOrdering Facility: [facility] Address: [address] [place] [address] Performed By: #### 5 7021-8 ####[facility] [facility]ORYCLIA [id number] [address] [place] RBC (Bld) [#/Vol] 3.45 10*6/uL Low 4.20-6.00 [facility] Comment on above: Order Comment: Speci men Type: BLOOD SPECIMENOrdering Facility: [facility] Address: [address] [place] [address] Performed By: #### 5 7021-8 ####[facility]ATORYCLIA [id number] [address] [place] WBC (Bld) [#/Vol] 11.38 10*3/uL High 3.70-11.00 [facility] Comment on above: Order Comment: Speci men Type: BLOOD SPECIMENOrdering Facility: [facility] Address: [address] [address] Performed By: #### 5 7021-8 ####[facility]ATORYCLIA [id number] [address] [facility] Magnesium [Mass/Vol] 2.3 mg/dL Normal 1.7-2.3 [facility] Comment on above: Order Comment: Speci men Type: BLOOD SPECIMENOrdering Facility: [facility] Address: [address] [place] [address] Performed By: #### 1 9123-9, 2777-1, 24577-5 ####[facility]ATORYCLIA [id number] [address] NT-proBNP [facility]Pl[facility] Natriuretic peptide.B prohormone N-Terminal [Mass/Vol] 328 pg/mL High <125 [facility] Comment on above: Order Comment: Speci men Type: BLOOD SPECIMENOrdering Facility: [facility] Address: [address] [place] [address] Performed By: #### 1 9123-9, 2777-1, 05142-3 ####[facility]ATORYCLIA [id number] [address] NURSING PROGon 07-22-2021 NURSING PROG Normal [facility] NUTRITIONon 07-22-2021 NUTRITION Normal [facility] Phosphate [facility] Phosphate [Mass/Vol] 3.5 mg/dL Normal 2.7-4.8 [facility] Comment on above: Order Comment: Speci men Type: BLOOD SPECIMENOrdering Facility: [facility] Address: [address] [place] [address] Performed By: #### 1 9123-9, 2777-1, 53095-9 ####[facility]ATORYCLIA [id number] [address] [place] THERAPY NTon 07-22-2021 THERAPY NT Normal [facility] THERAPY NT Normal [facility] aPTT PPPon 07-22-2021 aPTT Coag (PPP) [Time] 50.1 s High 23.0-32.4 [facility] Comment on above: Order Comment: Speci men Type: BLOOD SPECIMENOrdering Facility: [facility] Address: [address] [place] [address] Performed By: #### 1 4979-9 ####[facility]ATORYCLIA [id number] [address] [place] ALLIED HEALTHon 07-21-2021 ALLIED HEALTH Normal [facility] Bacteria Spec Resp Culton Bacteria identified Respiratory culture Nom (Unsp spec) Abnormal [facility] Comment on above: Performed By: #### 3 2355-0 ####[facility]ATORYCLIA [id number] [place] [address] [place] Basic metabolic 2000 panelon 07-21-2021 Anion gap [Moles/Vol] 9 mmol/L Normal 9-18 [facility] Comment on above: Order Comment: Speci men Type: BLOOD SPECIMENOrdering Facility: [facility] Address: [address] [place] [address] Performed By: #### 1 9123-9, 2777-1, 89573-6 ####[facility]ATORYCLIA [id number] [place] [address] [place] Calcium [Mass/Vol] 9.9 mg/dL Normal 8.5-10.2 [facility] Comment on above: Order Comment: Speci men Type: BLOOD SPECIMENOrdering Facility: [facility] Address: [address] [place] [address] Performed By: #### 1 9123-9, 2777-1, 75748-0 ####[facility]ATORYCLIA [id number] [place] [address] [place] Chloride [Moles/Vol] 103 mmol/L Normal 97-105 [facility] Comment on above: Order Comment: Speci men Type: BLOOD SPECIMENOrdering Facility: [facility] Address: [address] [place] [address] Performed By: #### 1 9123-9, 2777-1, 61412-4 ####[facility]PITALCLIA [id number] [address] CO2 [Moles/Vol] 33 mmol/L High 22-30 [facility] Comment on above: Order Comment: Speci men Type: BLOOD SPECIMENOrdering Facility: [facility] Address: [address] [place] [address] Performed By: #### 1 9123-9, 2777, 15697-4 ####[facility] HOSPITALCLIA [id number] [address] Creatinine [Mass/Vol] 0.80 mg/dL Normal 0.73-1.22 [facility] Comment on above: Order Comment: Speci men Type: BLOOD SPECIMENOrdering Facility: [facility] Address: [address] [place] [address] Performed By: #### 1 9123-9, 2777, 23056-5 ####[facility]NAIA [id number] [address] ESTIMATED GLOMERULAR FILTRATION RATE 96 mL/min/1.73m??? Normal >=60 [facility] Comment on above: Order Comment: Speci men Type: BLOOD SPECIMENOrdering Facility: [facility] Address: [address] [place] [address] Result Comment: Luzmaria mated Glomerular Filtration Rate [...] GFR. Performed By: #### 1 9123-9, 2777-1, 17511-1 ####[facility]ORATORYCLIA [id number] [place] [address] [place] Glucose [Mass/Vol] 148 mg/dL High 74-99 [facility] Comment on above: Order Comment: Speccara men Type: BLOOD SPECIMENOrdering Facility: [facility] Address: [address] [place], [place] [address] Result Comment: The [place] [employer] (ADA) provides guidance for cutoff [...] Standards of Medical Care in Diabetes 2016, [place] [employer]. Diabetes Care. 2016.39(Suppl 1). Performed By: #### 1 9123-9, 2777-, 66171-8 ####[facility]ATORYCLIA [id number] [place] [address] [place] Potassium [Moles/Vol] 4.1 mmol/L Normal 3.7-5.1 [facility] Comment on above: Order Comment: Shira feldman Type: BLOOD SPECIMENOrdering Facility: [facility] Address: [address] [place], [place] [address] Performed By: #### 1 9123-9, 2777-, 64395-3 ####[facility]ATORYCLIA [id number] [place] [address] [place] Sodium [Moles/Vol] 145 mmol/L High 136-144 [facility] Comment on above: Order Comment: Shira francia Type: BLOOD SPECIMENOrdering Facility: [facility] Address: [address] [place] [address] Performed By: #### 1 9123-9, 2777-, 67329-1 ####[facility]ATORYCLIA [id number] [place] [address] [place] Urea nitrogen [Mass/Vol] 40 mg/dL High 9-24 [facility] Comment on above: Order Comment: Speci men Type: BLOOD SPECIMENOrdering Facility: [facility] Address: [address] [place] [address] Performed By: #### 1 9123-9, 2777-1, 72562-2 ####[facility]ATORYCLIA [id number] [place] [address] [place] CBC W Auto Differential pane l (Bld)on 07-21-2021 Basophils (Bld) [#/Vol] 0.06 10*3/uL Normal <0.11 [facility] Comment on above: Order Comment: Speci men Type: BLOOD SPECIMENOrdering Facility: [facility] Address: [address] [place] [address] Performed By: #### 5 7021-8 ####[facility]ATORYCLIA [id number] [address] [place] Basophils/100 WBC (Bld) 0.4 % Normal [facility] Comment on above: Order Comment: Speci men Type: BLOOD SPECIMENOrdering Facility: [facility] Address: [address] [place] [address] Performed By: #### 5 7021-8 ####[facility]ATORYCLIA [id number] [address] Differential cell count method Nom (Bld) Auto Normal [facility] Comment on above: Order Comment: Speci men Type: BLOOD SPECIMENOrdering Facility: [facility] Address: [address] [place] [address] Performed By: #### 5 7021-8 ####[facility]ATORYCLIA [id number] [place] [address] [place] Eosinophils (Bld) [#/Vol] 0.04 10*3/uL Normal <0.46 [facility] Comment on above: Order Comment: Speci men Type: BLOOD SPECIMENOrdering Facility: [facility] Address: [address] [place] [address] Performed By: #### 5 7021-8 ####[facility]ATORYCLIA [id number] [address] STATES [facility] Eosinophils/100 WBC (Bld) 0.3 % Normal [facility] Comment on above: Order Comment: Speci men Type: BLOOD SPECIMENOrdering Facility: [facility] Address: [address] [place] [address] Performed By: #### 5 7021-8 ####[facility]ATORYCLIA [id number] [address] [place] Erythrocyte distribution width (RBC) [Ratio] 17.0 % High 11.5-15.0 [facility] Comment on above: Order Comment: Speci men Type: BLOOD SPECIMENOrdering Facility: [facility] Address: [address] [place] [address] Performed By: #### 5 7021-8 ####[facility]ATORYCLIA [id number] [address] Hematocrit (Bld) [Volume fraction] 33.1 % Low 39.0-51.0 [facility] Comment on above: Order Comment: Speci men Type: BLOOD SPECIMENOrdering Facility: [facility] Address: [address] [place] [address] Performed By: #### 5 7021-8 ####[facility]ATORYCLIA [id number] [address] [place] Hemoglobin (Bld) [Mass/Vol] 9.7 g/dL Low 13.0-17.0 [facility] Comment on above: Order Comment: Speci men Type: BLOOD SPECIMENOrdering Facility: [facility] Address: [address] [place] [address] Performed By: #### 5 7021-8 ####[facility]ORATORYCLIA [id number] [address] [place] IMMATURE GRAN % 0.5 % Normal [facility] Comment on above: Order Comment: Speci men Type: BLOOD SPECIMENOrdering Facility: [facility] Address: [address] [place] [address] Performed By: #### 5 7021-8 ####[facility]ATORYCLIA [id number] [address] IMMATURE GRAN ABS 0.07 k/uL Normal <0.10 [facility] Comment on above: Order Comment: Speci men Type: BLOOD SPECIMENOrdering Facility: [facility] Address: [address] [place] [address] Performed By: #### 5 7021-8 ####[facility]ATORYCLIA [id number] [address] Lymphocytes (Bld) [#/Vol] 1.99 10*3/uL Normal 1.00-4.00 [facility] Comment on above: Order Comment: Speci men Type: BLOOD SPECIMENOrdering Facility: [facility] Address: [address] [place] [address] Performed By: #### 5 7021-8 ####[facility]ATORYCLIA [id number] [address] Lymphocytes/100 WBC (Bld) 13.4 % Normal [facility] Comment on above: Order Comment: Speci men Type: BLOOD SPECIMENOrdering Facility: [facility] Address: [address] [place] [address] Performed By: #### 5 7021-8 ####[facility]ATORYCLIA [id number] [address] MCH (RBC) [Entitic mass] 27.2 pg Normal 26.0-34.0 [facility] Comment on above: Order Comment: Speci men Type: BLOOD SPECIMENOrdering Facility: [facility] Address: [address] [place] [address] Performed By: #### 5 7021-8 ####[facility]ATORYCLIA [id number] [address] MCHC (RBC) [Mass/Vol] 29.3 g/dL Low 30.5-36.0 [facility] Comment on above: Order Comment: Speci men Type: BLOOD SPECIMENOrdering Facility: [facility] Address: [address] [place] [address] Performed By: #### 5 7021-8 ####[facility]ATORYCLIA [id number] [place] [address] [place] MCV (RBC) [Entitic vol] 92.7 fL Normal 80.0-100.0 [facility] Comment on above: Order Comment: Speci men Type: BLOOD SPECIMENOrdering Facility: [facility] Address: [address] [place] [address] Performed By: #### 5 7021-8 ####[facility]ATORYCLIA [id number] [place] [address] [place] Monocytes (Bld) [#/Vol] 1.10 10*3/uL High <0.87 [facility] Comment on above: Order Comment: Speci men Type: BLOOD SPECIMENOrdering Facility: [facility] Address: [address] [place] [address] Performed By: #### 5 7021-8 ####[facility]ATORYCLIA [id number] [address] [place] Monocytes/100 WBC (Bld) 7.4 % Normal [facility] Comment on above: Order Comment: Speci men Type: BLOOD SPECIMENOrdering Facility: [facility] Address: [address] [place] [address] Performed By: #### 5 7021-8 ####[facility]ATORYCLIA [id number] [place] [address] [place] Neutrophils (Bld) [#/Vol] 11.61 10*3/uL High 1.45-7.50 [facility] Comment on above: Order Comment: Speci men Type: BLOOD SPECIMENOrdering Facility: [facility] Address: [address] [place] [address] Performed By: #### 5 7021-8 ####[facility]ATORYCLIA [id number] [address] [place] Neutrophils/100 WBC (Bld) 78.0 % Normal [facility] Comment on above: Order Comment: Speci men Type: BLOOD SPECIMENOrdering Facility: [facility] Address: [address] [place] [address] Performed By: #### 5 7021-8 ####[facility]ATORYCLIA [id number] [address] [place] Nucleated RBC (Bld) [#/Vol] 10*3/uL Normal <0.01 [facility] Comment on above: Order Comment: Speci men Type: BLOOD SPECIMENOrdering Facility: [facility] Address: [address] [place] [address] Performed By: #### 5 7021-8 ####[facility]ATORYCLIA [id number] [address] Nucleated RBC/100 WBC (Bld) [Ratio] 0.0 /100 WBC Normal [facility] Comment on above: Order Comment: Speci men Type: BLOOD SPECIMENOrdering Facility: [facility] Address: [address] [place] [address] Performed By: #### 5 7021-8 ####[facility]ATORYCLIA [id number] [address] [place] Platelet mean volume (Bld) [Entitic vol] 10.4 fL Normal 9.0-12.7 [facility] Comment on above: Order Comment: Speci men Type: BLOOD SPECIMENOrdering Facility: [facility] Address: [address] [place] [address] Performed By: #### 5 7021-8 ####[facility]ATORYCLIA [id number] [address] [place] Platelets (Bld) [#/Vol] 396 10*3/uL Normal 150-400 [facility] Comment on above: Order Comment: Speci men Type: BLOOD SPECIMENOrdering Facility: [facility] Address: [address] [place] [address] Performed By: #### 5 7021-8 ####[facility]ATORYCLIA [id number] [address] STATES OF [facility] RBC (Bld) [#/Vol] 3.57 10*6/uL Low 4.20-6.00 [facility] Comment on above: Order Comment: Speci men Type: BLOOD SPECIMENOrdering Facility: [facility] Address: [address] [place] [address] Performed By: #### 5 7021-8 ####[facility]ATORYCLIA [id number] [address] [place] WBC (Bld) [#/Vol] 14.87 10*3/uL High 3.70-11.00 [facility] Comment on above: Order Comment: Speci men Type: BLOOD SPECIMENOrdering Facility: [facility] Address: [address] [place] [address] Performed By: #### 5 7021-8 ####[facility]ATORYCLIA [id number] [address] Gas and Carbon monoxide pane l (BldV)on 07-21-2021 Base excess Calc (BldV) [Moles/Vol] 7 mmol/L High 0-2 [facility] Comment on above: Order Comment: Speci men Type: VENOUS BLOOD SPECIMENOrdering Facility: [facility] Address: [address] [place] [address] Performed By: #### 2 4344-4 ####[facility]ATORYCLIA [id number] [address] Body temperature 98.6 [degF] Normal [facility] Comment on above: Order Comment: Speci men Type: VENOUS BLOOD SPECIMENOrdering Facility: [facility] Address: [address] [place] [address] Performed By: #### 2 4344-4 ####[facility]ATORYCLIA [id number] [place] [address] [place] CALCIUM IONIZED, PH CORRECTED 1.21 mmol/L Normal 1.08-1.30 [facility] Comment on above: Order Comment: Speci men Type: VENOUS BLOOD SPECIMENOrdering Facility: [facility] Address: [address] [place] [address] Performed By: #### 2 4344-4 ####[facility]ATORYCLIA [id number] [place] [address] [place] Calcium.ionized (BldV) [Mass/Vol] 1.23 mmol/L Normal 1.08-1.30 [facility] Comment on above: Order Comment: Speci men Type: VENOUS BLOOD SPECIMENOrdering Facility: [facility] Address: [address] [place] [address] Performed By: #### 2 4344-4 ####[facility]ATORYCLIA [id number] [address] Carboxyhemoglobin (BldV) [Mass fraction] 2.3 % High 0.0-2.0 [facility] Comment on above: Order Comment: Speci men Type: VENOUS BLOOD SPECIMENOrdering Facility: [facility] Address: [address] [place] [address] Result Comment: Carb oxyhemoglobin Reference Range for Smokers: 2.0-8.0% Performed By: #### 2 4344-4 ####[facility]ATORYCLIA [id number] [place] [address] [place] CO2 (BldV) [Partial pressure] 58 mm[Hg] High 42-55 [facility] Comment on above: Order Comment: Speci men Type: VENOUS BLOOD SPECIMENOrdering Facility: [facility] Address: [address] [place] [address] Performed By: #### 2 4344-4 ####[facility]ATORYCLIA [id number] [address] [place] CO2 [Moles/Vol] 31 mmol/L High 25-29 [facility] Comment on above: Order Comment: Speci men Type: VENOUS BLOOD SPECIMENOrdering Facility: [facility] Address: [address] [place] [address] Performed By: #### 2 4344-4 ####[facility]ATORYCLIA [id number] [place] [address] [place] Glucose [Mass/Vol] 146 mg/dL High 60-105 [facility] Comment on above: Order Comment: Speci men Type: VENOUS BLOOD SPECIMENOrdering Facility: [facility] Address: [address] [place] [address] Performed By: #### 2 4344-4 ####[facility]ATORYCLIA [id number] [place] [address] [place] HCO3 (Bld) [Moles/Vol] 33 mmol/L High 24-28 [facility] Comment on above: Order Comment: Speci men Type: VENOUS BLOOD SPECIMENOrdering Facility: [facility] Address: [address] [place] [address] Performed By: #### 2 4344-4 ####[facility]ATORYCLIA [id number] [place] [address] [place] Hematocrit (Bld) [Volume fraction] 30.1 % Low 39.0-51.0 [facility] Comment on above: Order Comment: Speci men Type: VENOUS BLOOD SPECIMENOrdering Facility: [facility] Address: [address] [place] [address] Performed By: #### 2 4344-4 ####[facility]ATORYCLIA [id number] [place] [address] [place] Hemoglobin (Bld) [Mass/Vol] 9.7 g/dL Low 13.0-17.0 [facility] Comment on above: Order Comment: Speci men Type: VENOUS BLOOD SPECIMENOrdering Facility: [facility] Address: [address] [place] [address] Performed By: #### 2 4344-4 ####[facility]ATORYCLIA [id number] [address] [place] Methemoglobin (Bld) [Mass fraction] % Normal 0.0-1.5 [facility] Comment on above: Order Comment: Speci men Type: VENOUS BLOOD SPECIMENOrdering Facility: [facility] Address: [address] [address] Performed By: #### 2 4344-4 ####[facility] LABORATORYCLIA [id number] [address] [place] O2 THERAPY NC = Nasal Cannula Normal [facility] Comment on above: Order Comment: Speci men Type: VENOUS BLOOD SPECIMENOrdering Facility: [facility] Address: [address] [place] [address] Performed By: #### 2 4344-4 ####[facility]ATORYCLIA [id number] [address] [place] Oxygen (BldV) [Partial pressure] 64 mm[Hg] High 35-45 [facility] Comment on above: Order Comment: Speci men Type: VENOUS BLOOD SPECIMENOrdering Facility: [facility] Address: [address] [place] [address] Performed By: #### 2 4344-4 ####[facility]ATORYCLIA [id number] [address] [place] Oxygen saturation in Blood 90 % High 60-85 [facility] Comment on above: Order Comment: Speci men Type: VENOUS BLOOD SPECIMENOrdering Facility: [facility] Address: [address] [address] Performed By: #### 2 4344-4 ####[facility]ORATORYCLIA [id number] [address] [place] Oxyhemoglobin (BldV) [Mass fraction] 87 % High 60-85 [facility] Comment on above: Order Comment: Speci men Type: VENOUS BLOOD SPECIMENOrdering Facility: [facility] Address: [address] [address] Performed By: #### 2 4344-4 ####[facility]ORATORYCLIA [id number] [place] [address] [place] pH (BldV) 7.38 [pH] Normal 7.32-7.42 [facility] Comment on above: Order Comment: Speci men Type: VENOUS BLOOD SPECIMENOrdering Facility: [facility] Address: [address] [place] [address] Performed By: #### 2 4344-4 ####[facility]ATORYCLIA [id number] [address] [place] Potassium [Moles/Vol] 3.8 mmol/L Normal 3.5-5.0 [facility] Comment on above: Order Comment: Speci men Type: VENOUS BLOOD SPECIMENOrdering Facility: [facility] Address: [address] [place] [address] Performed By: #### 2 4344-4 ####[facility]ATORYCLIA [id number] [address] [place] Sodium [Moles/Vol] 145 mmol/L High 136-144 [facility] Comment on above: Order Comment: Speci men Type: VENOUS BLOOD SPECIMENOrdering Facility: [facility] Address: [address] [place] [address] Performed By: #### 2 4344-4 ####[facility]ATORYCLIA [id number] [place] [address] [place] Base excess Calc (BldV) [Moles/Vol] 8 mmol/L High 0-2 [facility] Comment on above: Order Comment: Speci men Type: VENOUS BLOOD SPECIMENOrdering Facility: [facility] Address: [address] [place] [address] Performed By: #### 2 4344-4 ####[facility]ORATORYCLIA [id number] [address] Body temperature 100.22 [degF] Normal [facility] Comment on above: Order Comment: Speci men Type: VENOUS BLOOD SPECIMENOrdering Facility: [facility] Address: [address] [place], [place] [address] Performed By: #### 2 4344-4 ####[facility]ORATORYCLIA [id number] [address] CALCIUM IONIZED, PH CORRECTED 1.25 mmol/L Normal 1.08-1.30 [facility] Comment on above: Order Comment: Speci men Type: VENOUS BLOOD SPECIMENOrdering Facility: [facility] Address: [address] [place] [address] Performed By: #### 2 4344-4 ####[facility] LABORATORYCLIA [id number] [address] [facility] Calcium.ionized (BldV) [Mass/Vol] 1.24 mmol/L Normal 1.08-1.30 [facility] Comment on above: Order Comment: Speci men Type: VENOUS BLOOD SPECIMENOrdering Facility: [facility] Address: [address] [place] [address] Performed By: #### 2 4344-4 ####[facility] LABORATORYCLIA [id number] [address] Carboxyhemoglobin (BldV) [Mass fraction] 2.5 % High 0.0-2.0 [facility] Comment on above: Order Comment: Speci men Type: VENOUS BLOOD SPECIMENOrdering Facility: [facility] Address: [address] [place] [address] Result Comment: Carb oxyhemoglobin Reference Range for Smokers: 2.0-8.0% Performed By: #### 2 4344-4 ####[facility]ATORYCLIA [id number] [address] [place] CO2 (BldV) [Partial pressure] 53 mm[Hg] Normal 42-55 [facility] Comment on above: Order Comment: Speci men Type: VENOUS BLOOD SPECIMENOrdering Facility: [facility] Address: [address] [place] [address] Performed By: #### 2 4344-4 ####[facility]ORATORYCLIA [id number] [place] [address] [place] CO2 [Moles/Vol] 31 mmol/L High 25-29 [facility] Comment on above: Order Comment: Speci men Type: VENOUS BLOOD SPECIMENOrdering Facility: [facility] Address: [address] [address] Performed By: #### 2 4344-4 ####[facility]ATORYCLIA [id number] [address] [place] CO2 adjusted to patient's actual temperature (BldV) [Partial pressure] 56 mmHg High 42-55 [facility] Comment on above: Order Comment: Speci men Type: VENOUS BLOOD SPECIMENOrdering Facility: [facility] Address: [address] [place] [address] Performed By: #### 2 4344-4 ####[facility]ATORYCLIA [id number] [address] [place] Glucose [Mass/Vol] 131 mg/dL High 60-105 [facility] Comment on above: Order Comment: Speci men Type: VENOUS BLOOD SPECIMENOrdering Facility: [facility] Address: [address] [place] [address] Performed By: #### 2 4344-4 ####[facility]ATORYCLIA [id number] [address] [place] HCO3 (Bld) [Moles/Vol] 33 mmol/L High 24-28 [facility] Comment on above: Order Comment: Speci men Type: VENOUS BLOOD SPECIMENOrdering Facility: [facility] Address: [address] [address] Performed By: #### 2 4344-4 ####[facility]ATORYCLIA [id number] [address] [place] Hematocrit (Bld) [Volume fraction] 30.8 % Low 39.0-51.0 [facility] Comment on above: Order Comment: Speci men Type: VENOUS BLOOD SPECIMENOrdering Facility: [facility] Address: [facility] [address] Performed By: #### 2 4344-4 ####[facility]ATORYCLIA [id number] [address] OF [facility] Hemoglobin (Bld) [Mass/Vol] 10.0 g/dL Low 13.0-17.0 [facility] Comment on above: Order Comment: Speci men Type: VENOUS BLOOD SPECIMENOrdering Facility: [facility] Address: [address] [place] [address] Performed By: #### 2 4344-4 ####[facility]ATORYCLIA [id number] [address] Methemoglobin (Bld) [Mass fraction] % Normal 0.0-1.5 [facility] Comment on above: Order Comment: Speci men Type: VENOUS BLOOD SPECIMENOrdering Facility: [facility] Address: [address] [place] [address] Performed By: #### 2 4344-4 ####[facility]ATORYCLIA [id number] [address] O2 THERAPY NC = Nasal Cannula Normal [facility] Comment on above: Order Comment: Speci men Type: VENOUS BLOOD SPECIMENOrdering Facility: [facility] Address: [address] [place] [address] Performed By: #### 2 4344-4 ####[facility]ATORYCLIA [id number] [address] Oxygen (BldV) [Partial pressure] 58 mm[Hg] High 35-45 [facility] Comment on above: Order Comment: Speci men Type: VENOUS BLOOD SPECIMENOrdering Facility: [facility] Address: [address] [place] [address] Performed By: #### 2 4344-4 ####[facility]ATORYCLIA [id number] [address] Oxygen adjusted to patient's actual temperature (BldV) [Partial pressure] 61 mmHg High 35-45 [facility] Comment on above: Order Comment: Speci men Type: VENOUS BLOOD SPECIMENOrdering Facility: [facility] Address: [address] [address] Performed By: #### 2 4344-4 ####[facility]ATORYCLIA [id number] [address] Oxygen saturation in Blood 88 % High 60-85 [facility] Comment on above: Order Comment: Speci men Type: VENOUS BLOOD SPECIMENOrdering Facility: [facility] Address: [address] [place] [address] Performed By: #### 2 4344-4 ####[facility]ATORYCLIA [id number] [address] Oxyhemoglobin (BldV) [Mass fraction] 85 % Normal 60-85 [facility] Comment on above: Order Comment: Speci men Type: VENOUS BLOOD SPECIMENOrdering Facility: [facility] Address: [address] [place] [address] Performed By: #### 2 4344-4 ####[facility]ATORYCLIA [id number] [address] [place] pH (BldV) 7.41 [pH] Normal 7.32-7.42 [facility] Comment on above: Order Comment: Speci men Type: VENOUS BLOOD SPECIMENOrdering Facility: [facility] Address: [address] [place] [address] Performed By: #### 2 4344-4 ####[facility]ORYCLIA [id number] [address] pH adjusted to patient's actual temperature (BldV) 7.40 Normal 7.32-7.42 [facility] Comment on above: Order Comment: Speci men Type: VENOUS BLOOD SPECIMENOrdering Facility: [facility] Address: [address] [place] [address] Performed By: #### 2 4344-4 ####[facility]ORYCLIA [id number] [address] [place] Potassium [Moles/Vol] 4.0 mmol/L Normal 3.5-5.0 [facility] Comment on above: Order Comment: Speci men Type: VENOUS BLOOD SPECIMENOrdering Facility: [facility] Address: [address] [place] [address] Performed By: #### 2 4344-4 ####[facility]ATORYCLIA [id number] [address] [place] Sodium [Moles/Vol] 146 mmol/L High 136-144 [facility] Comment on above: Order Comment: Speci men Type: VENOUS BLOOD SPECIMENOrdering Facility: [facility] Address: [address] [place] [address] Performed By: #### 2 4344-4 ####[facility]ATORYCLIA [id number] [address] [place] Magnesium SerPl-mCncon 07-21 Magnesium [Mass/Vol] 2.5 mg/dL High 1.7-2.3 [facility] Comment on above: Order Comment: Speci men Type: BLOOD SPECIMENOrdering Facility: [facility] Address: [address] [place] [address] Performed By: #### 1 9123-9, 2777-1, 32536-6 ####[facility]ATORYCLIA [id number] [address] [place] NURSING PROGon 07-21-2021 NURSING PROG Normal [facility] Phosphate SerPl-mCncon 07-21 Phosphate [Mass/Vol] 3.7 mg/dL Normal 2.7-4.8 [facility] Comment on above: Order Comment: Speci men Type: BLOOD SPECIMENOrdering Facility: [facility] Address: [address] [place] [address] Performed By: #### 1 9123-9, 2777-1, 29503-4 ####[facility]ORATORYCLIA [id number] [address] [place] THERAPY NTon 07-21-2021 THERAPY NT Normal [facility] XR CHEST 1V FRONTALon 2021 XR CHEST 1V FRONTAL Normal [facility] aPTT PPPon 07-21-2021 aPTT Coag (PPP) [Time] 53.0 s High 23.0-32.4 [facility] Comment on above: Order Comment: Speci men Type: BLOOD SPECIMENOrdering Facility: [facility] Address: [address] [place] [address] Performed By: #### 1 4979-9 ####[facility]ATORYCLIA [id number] [place] [address] [place] ALLIED HEALTHon 07-20-2021 ALLIED HEALTH Normal [facility] Basic metabolic 2000 panelon 07-20-2021 Anion gap [Moles/Vol] 8 mmol/L Low 9-18 [facility] Comment on above: Order Comment: Speci men Type: BLOOD SPECIMENOrdering Facility: [facility] Address: [address] [place] [address] Performed By: #### 2 4321-2, , 2776-05 ####[facility]ATORYCLIA [id number] [place] [address] [place] Calcium [Mass/Vol] 9.7 mg/dL Normal 8.5-10.2 [facility] Comment on above: Order Comment: Speci men Type: BLOOD SPECIMENOrdering Facility: [facility] Address: [address] [place] [address] Performed By: #### 2 4321-2, , 2776-05 ####[facility]ATORYCLIA [id number] [place] [address] [place] Chloride [Moles/Vol] 104 mmol/L Normal 97-105 [facility] Comment on above: Order Comment: Speci men Type: BLOOD SPECIMENOrdering Facility: [facility] Address: [address] [place], [place] [address] Performed By: #### 2 4321-2, , 2776-05 ####[facility]ATORYCLIA [id number] [place] [address] [place] CO2 [Moles/Vol] 34 mmol/L High 22-30 [facility] Comment on above: Order Comment: Speci men Type: BLOOD SPECIMENOrdering Facility: [facility] Address: [address] [place] [address] Performed By: #### 2 4321-2, , 2776-05 ####[facility]ATORYCLIA [id number] [address] [place] Creatinine [Mass/Vol] 0.76 mg/dL Normal 0.73-1.22 [facility] Comment on above: Order Comment: Speci men Type: BLOOD SPECIMENOrdering Facility: [facility] Address: [address] [place] [address] Performed By: #### 2 4321-2, , 2776-05 ####[facility]PITALCLIA [id number] [address] ESTIMATED GLOMERULAR FILTRATION RATE 97 mL/min/1.73m??? Normal >=60 [facility] Comment on above: Order Comment: Speci men Type: BLOOD SPECIMENOrdering Facility: [facility] Address: [address] [place] [address] Result Comment: Luzmaria mated Glomerular Filtration Rate [...] Performed By: #### 2 4321-2, , 2776-05 ####[facility]ATORYCLIA [id number] [address] [place] Glucose [Mass/Vol] 123 mg/dL High 74-99 [facility] Comment on above: Order Comment: Speci men Type: BLOOD SPECIMENOrdering Facility: [facility] Address: [address] [place], [place] [address] Result Comment: The [place] [employer] (ADA) provides guidance for cutoff [...] Standards of Medical Care in Diabetes 2016, [place] [employer]. Diabetes Care. 2016.39(Suppl 1). Performed By: #### 2 4321-2, , 2776-05 ####[facility]ATORYCLIA [id number] [place] [address] [place] Potassium [Moles/Vol] 4.4 mmol/L Normal 3.7-5.1 [facility] Comment on above: Order Comment: Speci men Type: BLOOD SPECIMENOrdering Facility: [facility] Address: [address] Performed By: #### 2 4321-2, , 2776-05 ####[facility] HOSPITALCLIA [id number] [place] [address] [place] Sodium [Moles/Vol] 146 mmol/L High 136-144 [facility] Comment on above: Order Comment: Speci men Type: BLOOD SPECIMENOrdering Facility: [facility] Address: [address] Performed By: #### 2 4321-2, , 2776-05 ####[facility]ATORYCLIA [id number] [place] [address] [place] Urea nitrogen [Mass/Vol] 38 mg/dL High 9-24 [facility] Comment on above: Order Comment: Speci men Type: BLOOD SPECIMENOrdering Facility: [facility] Address: [address] Performed By: #### 2 4321-2, 07010-7, 2777-1 ####[facility]ATORYCLIA [id number] [address] [place] CASE MANAGEMon 07-20-2021 CASE MANAGEM Normal [facility] CBC W Auto Differential pane l (Bld)on 07-20-2021 Basophils (Bld) [#/Vol] 0.05 10*3/uL Normal <0.11 [facility] Comment on above: Order Comment: Speci men Type: BLOOD SPECIMENOrdering Facility: [facility] Address: [address] [place] [address] Performed By: #### 5 7021-8 ####[facility]ATORYCLIA [id number] [address] [place] Basophils/100 WBC (Bld) 0.5 % Normal [facility] Comment on above: Order Comment: Speci men Type: BLOOD SPECIMENOrdering Facility: [facility] Address: [address] [place] [address] Performed By: #### 5 7021-8 ####[facility]ATORYCLIA [id number] [address] Differential cell count method Nom (Bld) Auto Normal [facility] Comment on above: Order Comment: Speci men Type: BLOOD SPECIMENOrdering Facility: [facility] Address: [address] [address] Performed By: #### 5 7021-8 ####[facility]ATORYCLIA [id number] [address] [place] Eosinophils (Bld) [#/Vol] 0.43 10*3/uL Normal <0.46 [facility] Comment on above: Order Comment: Speci men Type: BLOOD SPECIMENOrdering Facility: [facility] Address: [address] [address] Performed By: #### 5 7021-8 ####[facility]ATORYCLIA [id number] [address] Eosinophils/100 WBC (Bld) 4.1 % Normal [facility] Comment on above: Order Comment: Speci men Type: BLOOD SPECIMENOrdering Facility: [facility] Address: [address] [place] [address] Performed By: #### 5 7021-8 ####[facility]ATORYCLIA [id number] [address] Erythrocyte distribution width (RBC) [Ratio] 16.7 % High 11.5-15.0 [facility] Comment on above: Order Comment: Speci men Type: BLOOD SPECIMENOrdering Facility: [facility] Address: [address] [place] [address] Performed By: #### 5 7021-8 ####[facility]ATORYCLIA [id number] [address] Hematocrit (Bld) [Volume fraction] 33.0 % Low 39.0-51.0 [facility] Comment on above: Order Comment: Speci men Type: BLOOD SPECIMENOrdering Facility: [facility] Address: [address] [place] [address] Performed By: #### 5 7021-8 ####[facility]ATORYCLIA [id number] [address] Hemoglobin (Bld) [Mass/Vol] 9.7 g/dL Low 13.0-17.0 [facility] Comment on above: Order Comment: Speci men Type: BLOOD SPECIMENOrdering Facility: [facility] Address: [address] [place] [address] Performed By: #### 5 7021-8 ####[facility]ATORYCLIA [id number] [address] IMMATURE GRAN % 0.4 % Normal [facility] Comment on above: Order Comment: Speci men Type: BLOOD SPECIMENOrdering Facility: [facility] Address: [address] [place] [address] Performed By: #### 5 7021-8 ####[facility]ATORYCLIA [id number] [address] IMMATURE GRAN ABS 0.04 k/uL Normal <0.10 [facility] Comment on above: Order Comment: Speci men Type: BLOOD SPECIMENOrdering Facility: [facility] Address: [address] [place] [address] Performed By: #### 5 7021-8 ####[facility]ATORYCLIA [id number] [address] Lymphocytes (Bld) [#/Vol] 1.99 10*3/uL Normal 1.00-4.00 [facility] Comment on above: Order Comment: Speci men Type: BLOOD SPECIMENOrdering Facility: [facility] Address: [address] [place] [address] Performed By: #### 5 7021-8 ####[facility]ATORYCLIA [id number] [address] Lymphocytes/100 WBC (Bld) 18.8 % Normal [facility] Comment on above: Order Comment: Speci men Type: BLOOD SPECIMENOrdering Facility: [facility] Address: [address] [place] [address] Performed By: #### 5 7021-8 ####[facility]ATORYCLIA [id number] [address] MCH (RBC) [Entitic mass] 27.8 pg Normal 26.0-34.0 [facility] Comment on above: Order Comment: Speci men Type: BLOOD SPECIMENOrdering Facility: [facility] Address: [address] [place] [address] Performed By: #### 5 7021-8 ####[facility]ATORYCLIA [id number] [address] MCHC (RBC) [Mass/Vol] 29.4 g/dL Low 30.5-36.0 [facility] Comment on above: Order Comment: Speci men Type: BLOOD SPECIMENOrdering Facility: [facility] Address: [address] [place] [address] Performed By: #### 5 7021-8 ####[facility]ATORYCLIA [id number] [address] [place] MCV (RBC) [Entitic vol] 94.6 fL Normal 80.0-100.0 [facility] Comment on above: Order Comment: Speci men Type: BLOOD SPECIMENOrdering Facility: [facility] Address: [address] [place] [address] Performed By: #### 5 7021-8 ####[facility]ATORYCLIA [id number] [address] [place] Monocytes (Bld) [#/Vol] 0.82 10*3/uL Normal <0.87 [facility] Comment on above: Order Comment: Speci men Type: BLOOD SPECIMENOrdering Facility: [facility] Address: [address] [place] [address] Performed By: #### 5 7021-8 ####[facility]ATORYCLIA [id number] [address] [place] Monocytes/100 WBC (Bld) 7.8 % Normal [facility] Comment on above: Order Comment: Speci men Type: BLOOD SPECIMENOrdering Facility: [facility] Address: [address] [place] [address] Performed By: #### 5 7021-8 ####[facility]ATORYCLIA [id number] [address] [place] Neutrophils (Bld) [#/Vol] 7.23 10*3/uL Normal 1.45-7.50 [facility] Comment on above: Order Comment: Speci men Type: BLOOD SPECIMENOrdering Facility: [facility] Address: [address] [place] [address] Performed By: #### 5 7021-8 ####[facility]ATORYCLIA [id number] [address] [place] Neutrophils/100 WBC (Bld) 68.4 % Normal [facility] Comment on above: Order Comment: Speci men Type: BLOOD SPECIMENOrdering Facility: [facility] Address: [facility] [address] Performed By: #### 5 7021-8 ####[facility]ATORYCLIA [id number] [address] [place] Nucleated RBC (Bld) [#/Vol] 10*3/uL Normal <0.01 [facility] Comment on above: Order Comment: Speci men Type: BLOOD SPECIMENOrdering Facility: [facility] Address: [address] [place] [address] Performed By: #### 5 7021-8 ####[facility]ATORYCLIA [id number] [address] OF [facility] Nucleated RBC/100 WBC (Bld) [Ratio] 0.0 /100 WBC Normal [facility] Comment on above: Order Comment: Speci men Type: BLOOD SPECIMENOrdering Facility: [facility] Address: [address] [place] [address] Performed By: #### 5 7021-8 ####[facility]ATORYCLIA [id number] [address] [place] Platelet mean volume (Bld) [Entitic vol] 10.5 fL Normal 9.0-12.7 [facility] Comment on above: Order Comment: Speci men Type: BLOOD SPECIMENOrdering Facility: [facility] Address: [address] [place] [address] Performed By: #### 5 7021-8 ####[facility]ATORYCLIA [id number] [address] [place] Platelets (Bld) [#/Vol] 400 10*3/uL Normal 150-400 [facility] Comment on above: Order Comment: Speci men Type: BLOOD SPECIMENOrdering Facility: [facility] Address: [address] [place] [address] Performed By: #### 5 7021-8 ####[facility]ATORYCLIA [id number] [address] [place] RBC (Bld) [#/Vol] 3.49 10*6/uL Low 4.20-6.00 [facility] Comment on above: Order Comment: Speci men Type: BLOOD SPECIMENOrdering Facility: [facility] Address: [address] [place] [address] Performed By: #### 5 7021-8 ####[facility]ATORYCLIA [id number] [address] WBC (Bld) [#/Vol] 10.56 10*3/uL Normal 3.70-11.00 [facility] Comment on above: Order Comment: Speci men Type: BLOOD SPECIMENOrdering Facility: [facility] Address: [address] [place] [address] Performed By: #### 5 7021-8 ####[facility]ATORYCLIA [id number] [address] OF [facility] CONSULT PROGon 07-20-2021 CONSULT PROG Normal [facility] CT BRAIN WO IVCONon 07-21-[address] BRAIN WO IVCON Normal [facility] Magnesium SerPl-ncon 07-20 Magnesium [Mass/Vol] 2.4 mg/dL High 1.7-2.3 [facility] Comment on above: Order Comment: Speci men Type: BLOOD SPECIMENOrdering Facility: [facility] Address: [address] [place] [address] Performed By: #### 2 4321-2, 56541-4, 2777-1 ####[facility]ATORYCLIA [id number] [address] [place] NUTRITIONon 07-20-2021 NUTRITION Normal [facility] Phosphate SerPl-mCncon 07-20 Phosphate [Mass/Vol] 4.1 mg/dL Normal 2.7-4.8 [facility] Comment on above: Order Comment: Speci men Type: BLOOD SPECIMENOrdering Facility: [facility] Address: [address] [place] [address] Performed By: #### 2 4321-2, 21525-1, 2777-1 ####[facility]ATORYCLIA [id number] [place] [address] [place] aPTT PPPon 07-20-2021 aPTT Coag (PPP) [Time] 53.6 s High 23.0-32.4 [facility] Comment on above: Order Comment: Speci men Type: BLOOD SPECIMENOrdering Facility: [facility] Address: [address] [place] [address] Performed By: #### 1 4979-9 ####[facility]ATORYCLIA [id number] [address] [place] Bacteria CSF Culton 07-20-19 22 Bacteria identified Cx Nom (CSF) CULTURE, CSF: No growth 14 days GRAM STAIN: No organisms seen No Polymorphonuclear Leukocytes Rare Mononuclear cells Gram stain performed on cytospun specimen. Normal [facility] Comment on above: Performed By: #### 6 06-4 ####[facility]ATORYCLIA [id number] [address] [place] CONSULT PROGon 07-19-2021 CONSULT PROG Normal [facility] CSF MANUAL DIFFon 07-19-2021 DIF TTL, CSF 100 cells counted Normal [facility] Comment on above: Order Comment: Speci men Type: CEREBROSPINAL FLUIDOrdering Facility: [facility] Address: [address] [place] [address] Performed By: #### L [id number], 73186-2, [id number] ####[facility]ATORYCLIA [id number] [place] [address] [place] EOSIN%, CSF 1 % Normal [facility] Comment on above: Order Comment: Speci men Type: CEREBROSPINAL FLUIDOrdering Facility: [facility] Address: [address] [place] [address] Performed By: #### L [id number], 33014-9, [id number] ####[facility]ATORYCLIA [id number] [place] [address] [place] LYMPH%, CSF 67 % Normal 50-90 [facility] Comment on above: Order Comment: Speci men Type: CEREBROSPINAL FLUIDOrdering Facility: [facility] Address: [address] [address] Performed By: #### L [id number], 82258-5, [id number] ####[facility]ATORYCLIA [id number] [place] [address] [place] MACRO%, CSF 1 % High <1 [facility] Comment on above: Order Comment: Speci men Type: CEREBROSPINAL FLUIDOrdering Facility: [facility] Address: [address] [place] [address] Performed By: #### L [id number], [id number], [id number] ####[facility]ORATORYCLIA [id number] [place] [address] [place]%, CSF 18 % Normal 10-50 [facility] Comment on above: Order Comment: Speci men Type: CEREBROSPINAL FLUIDOrdering Facility: [facility] Address: [address] [place] [address] Performed By: #### L [id number], 85906-0, [id number] ####[facility]ORATORYCLIA [id number] [place] [address] [place]%, CSF 11 % High 0-3 [facility] Comment on above: Order Comment: Speci men Type: CEREBROSPINAL FLUIDOrdering Facility: [facility] Address: [address] [address] Performed By: #### L [id number], 40818-3, [id number] ####[facility]ATORYCLIA [id number] [address] [place] OTHER CL%, CSF 2 % Normal [facility] Comment on above: Order Comment: Speci men Type: CEREBROSPINAL FLUIDOrdering Facility: [facility] Address: [address], [place] [address] Result Comment: Path review to follow. Performed By: #### L [id number], 80941-7, [id number] ####[facility]ORATORYCLIA [id number] [address] CSF PATHOLOGIST INTERP (LAB REFLEX ORDER-NO BILL)on 07-19-2021 CSF STAFF REVIEW Normal [facility] Comment on above: Order Comment: Speci men Type: CEREBROSPINAL FLUIDOrdering Facility: [facility] Address: [address] [place] [address] Performed By: #### L [id number], 09064-7, [id number] ####[facility]ORATORYCLIA [id number] [address] Pathologist name Reviewed by Wing Cummings MD [facility] Comment on above: Order Comment: Speci men Type: CEREBROSPINAL FLUIDOrdering Facility: [facility] Address: [address] [place] [address] Performed By: #### L [id number], 27265-8, [id number] ####[facility]ATORYCLIA [id number] [address] Cell count panel (CSF)on Clarity (CSF) Clear Normal Clear [facility] Comment on above: Order Comment: Speci men Type: CEREBROSPINAL FLUIDOrdering Facility: [facility] Address: [address] [place] [address] Performed By: #### L [id number], 83929-6, [id number] ####[facility]ATORYCLIA [id number] [address] Clarity (Unsp spec) Not Indicated Normal Clear [facility] Comment on above: Order Comment: Speci men Type: CEREBROSPINAL FLUIDOrdering Facility: [facility] Address: [address] [place] [address] Performed By: #### L [id number], 85044-9, [id number] ####[facility]ATORYCLIA [id number] [address] Color (CSF) Colorless Normal Colorless [facility] Comment on above: Order Comment: Speci men Type: CEREBROSPINAL FLUIDOrdering Facility: [facility] Address: [facility] [place] [address] Performed By: #### L [id number], 88213-5, [id number] ####[facility]ORATORYCLIA [id number] [address] OF [facility] Color (Spun CSF) Not Indicated Normal Colorless [facility] Comment on above: Order Comment: Speci men Type: CEREBROSPINAL FLUIDOrdering Facility: [facility] Address: [address] [place] [address] Performed By: #### L [id number], 97937-4, [id number] ####[facility]ATORYCLIA [id number] [address] OF [facility] CSF TUBE NUMBER Sterile Container Normal [facility] Comment on above: Order Comment: Speci men Type: CEREBROSPINAL FLUIDOrdering Facility: [facility] Address: [address] [place] [address] Performed By: #### L [id number], 27221-2, [id number] ####[facility]ORYCLIA [id number] [address] OF [facility] RBC Manual cnt (CSF) [#/Vol] 0 cells/uL Normal 0-5 [facility] Comment on above: Order Comment: Speci men Type: CEREBROSPINAL FLUIDOrdering Facility: [facility] Address: [address] [place] [id number] Performed By: #### L [id number], 57363-7, [id number] ####[facility]ATORYCLIA [id number] [address] WBC Manual cnt (CSF) [#/Vol] 2 cells/uL Normal 0-5 [facility] Comment on above: Order Comment: Speci men Type: CEREBROSPINAL FLUIDOrdering Facility: [facility] Address: [address] Performed By: #### L [id number], 03598-0, [id number] ####[facility]ORATORYCLIA [id number] [place] [address] [place] Glucose CSF-ncon Glucose (CSF) [Mass/Vol] 69 mg/dL Normal 40-70 [facility] Comment on above: Order Comment: Speci men Type: CEREBROSPINAL FLUIDOrdering Facility: [facility] Address: [address] [place] [address] Result Comment: Lumb ar CSF glucose values of healthy patients are approximately 60% of the plasma values and must always be compared with a concurrently measured plasma value for adequate clinical interpretation.References: 1. Glucose HK (GLUC3) [package insert V 12.0 Q[place]ari]. [employer], [place], [place]. September 2015. 2. Michelle Moore, Loki HGarfield (2015). Chapter 7: Glucose and Lactate. Marianela Rothman.(eds.), Cerebrospinal Fluid in Clinical Neurology. [place]: [employer]. Performed By: #### 2 342-4, 2880-3 ####[facility]ORATORYCLIA [id number] [address] [place] NURSING PROGon 07-19-2021 NURSING PROG Normal [facility] NURSING PROG Normal [facility] Prot CSF-ncon 07-19-2021 Protein (CSF) [Mass/Vol] 51 mg/dL High 15-45 [facility] Comment on above: Order Comment: Speci men Type: CEREBROSPINAL FLUIDOrdering Facility: [facility] Address: [address] [place] [address] Performed By: #### 2 342-4, 2880-3 ####[facility]ORATORYCLIA [id number] [address] [place] THERAPY NTon 07-19-2021 THERAPY NT Normal [facility] Urinalysis complete panel (U )on 07-19-2021 Bilirubin Ql (U) Negative Normal Negative [facility] Comment on above: Order Comment: Speci men Type: URINE SPECIMENOrdering Facility: [facility] Address: [address] [place] [address] Performed By: #### 2 4356-8 ####[facility]ORATORYCLIA [id number] [address] Clarity (Unsp spec) Clear Normal Clear [facility] Comment on above: Order Comment: Speci men Type: URINE SPECIMENOrdering Facility: [facility] Address: [address] [place] [address] Performed By: #### 2 4356-8 ####[facility]ATORYCLIA [id number] [address] Color (U) Colorless Normal yellow [facility] Comment on above: Order Comment: Speci men Type: URINE SPECIMENOrdering Facility: [facility] Address: [address] [place] [address] Performed By: #### 2 4356-8 ####[facility]ATORYCLIA [id number] [address] Glucose Test strip (U) [Mass/Vol] Negative Normal Negative [facility] Comment on above: Order Comment: Speci men Type: URINE SPECIMENOrdering Facility: [facility] Address: [address] [place] [address] Performed By: #### 2 4356-8 ####[facility]ATORYCLIA [id number] [address] Hemoglobin Ql (U) Trace Abnormal Negative [facility] Comment on above: Order Comment: Speci men Type: URINE SPECIMENOrdering Facility: [facility] Address: [address] [place] [address] Performed By: #### 2 4356-8 ####[facility]ATORYCLIA [id number] [address] Hyaline casts (Urine sed) [#/Area] 1-3 /LPF Abnormal 0 /LPF [facility] Comment on above: Order Comment: Speci men Type: URINE SPECIMENOrdering Facility: [facility] Address: [address] [place] [address] Performed By: #### 2 4356-8 ####[facility]ATORYCLIA [id number] [address] Ketones Ql (U) Negative Normal Negative [facility] Comment on above: Order Comment: Speci men Type: URINE SPECIMENOrdering Facility: [facility] Address: [address] [place] [address] Performed By: #### 2 4356-8 ####[facility]ATORYCLIA [id number] [address] Leukocyte esterase Test strip Ql (U) Negative Normal Negative [facility] Comment on above: Order Comment: Speci men Type: URINE SPECIMENOrdering Facility: [facility] Address: [address] [place] [address] Performed By: #### 2 4356-8 ####[facility]ATORYCLIA [id number] [address] Nitrite Ql (U) Negative Normal Negative [facility] Comment on above: Order Comment: Speci men Type: URINE SPECIMENOrdering Facility: [facility] Address: [address] [place] [address] Performed By: #### 2 4356-8 ####[facility]ATORYCLIA [id number] [address] [place] pH (U) 7.0 [pH] Normal 5.0-8.0 [facility] Comment on above: Order Comment: Speci men Type: URINE SPECIMENOrdering Facility: [facility] Address: [address] [place] [address] Performed By: #### 2 4356-8 ####[facility]ATORYCLIA [id number] [address] Protein (U) [Mass/Vol] Negative Normal Negative [facility] Comment on above: Order Comment: Speci men Type: URINE SPECIMENOrdering Facility: [facility] Address: [address] [place] [address] Performed By: #### 2 4356-8 ####[facility]ATORYCLIA [id number] [address] STATES [facility] RBC LM.HPF (Urine sed) [#/Area] 6-10 /HPF Abnormal 0-3 /HPF [facility] Comment on above: Order Comment: Speci men Type: URINE SPECIMENOrdering Facility: [facility] Address: [address] [place] [address] Performed By: #### 2 4356-8 ####[facility]ATORYCLIA [id number] [address] [place] Specific gravity (U) [Rel density] 1.008 Normal 1.005-1.030 [facility] Comment on above: Order Comment: Speci men Type: URINE SPECIMENOrdering Facility: [facility] Address: [address] [place] [address] Performed By: #### 2 4356-8 ####[facility]ATORYCLIA [id number] [address] Urobilinogen Ql (U) Normal Normal Negative [facility] Comment on above: Order Comment: Speci men Type: URINE SPECIMENOrdering Facility: [facility] Address: [address] [place] [address] Performed By: #### 2 4356-8 ####[facility]ATORYCLIA [id number] [address] [place] [facility] WBC LM.HPF (Urine sed) [#/Area] 0-5 /HPF Normal 0-5 /HPF [facility] Comment on above: Order Comment: Speci men Type: URINE SPECIMENOrdering Facility: [facility] Address: [address] [place] [address] Performed By: #### 2 4356-8 ####[facility]ORATORYCLIA [id number] [address] OF [facility] Vancomycin random [Mass/Vol] on 07-19-2021 Vancomycin [Mass/Vol] 13.9 ug/mL Normal 10.0-20.0 [facility] Comment on above: Order Comment: Speci men Type: BLOOD SPECIMENOrdering Facility: [facility] Address: [address] [place] [address] Result Comment: Refe rence ranges and high/low indicator flags are provided as general guidelines only. The treating physician must determine appropriate target levels/dosing based on the specific clinical situation. Performed By: #### 4 091-5 ####[facility]ATORYCLIA [id number] [address] [place] aPTT PPPon 07-19-2021 aPTT Coag (PPP) [Time] 53.9 s High 23.0-32.4 [facility] Comment on above: Order Comment: Speci men Type: BLOOD SPECIMENOrdering Facility: [facility] Address: [address] [place] [address] Performed By: #### 1 4979-9 ####[facility]ORATORYCLIA [id number] [place] [address] [place] Basic metabolic 2000 panelon 07-18-2021 Anion gap [Moles/Vol] 6 mmol/L Low 9-18 [facility] Comment on above: Order Comment: Speci men Type: BLOOD SPECIMENOrdering Facility: [facility] Address: [address] [place] [address] Performed By: #### 2 4321-2, 09367-4, 2777- ####[facility]ORATORYCLIA [id number] [place] [address] [place] Calcium [Mass/Vol] 9.4 mg/dL Normal 8.5-10.2 [facility] Comment on above: Order Comment: Speci men Type: BLOOD SPECIMENOrdering Facility: [facility] Address: [address] [place] [address] Performed By: #### 2 4321-2, 83961-3, 2777-1 ####[facility]ORATORYCLIA [id number] [address] [place] Chloride [Moles/Vol] 103 mmol/L Normal 97-105 [facility] Comment on above: Order Comment: Speci men Type: BLOOD SPECIMENOrdering Facility: [facility] Address: [address] [place] [address] Performed By: #### 2 4321-2, , 2776-05 ####[facility]ORATORYCLIA [id number] [place] [id number] [place] [facility] CO2 [Moles/Vol] 34 mmol/L High 22-30 [facility] Comment on above: Order Comment: Speci men Type: BLOOD SPECIMENOrdering Facility: [facility] Address: [address] [place] [address] Performed By: #### 2 4321-2, , 2776-05 ####[facility]PITALCLIA [id number] [address] Creatinine [Mass/Vol] 0.75 mg/dL Normal 0.73-1.22 [facility] Comment on above: Order Comment: Speci men Type: BLOOD SPECIMENOrdering Facility: [facility] Address: [address] [place] [address] Performed By: #### 2 432-2, , 2776-05 ####[facility]OSPITALCLIA [id number] [address] ESTIMATED GLOMERULAR FILTRATION RATE 98 mL/min/1.73m??? Normal >=60 [facility] Comment on above: Order Comment: Speci men Type: BLOOD SPECIMENOrdering Facility: [facility] Address: [address] [place] [address] Result Comment: Luzmaria mated Glomerular Filtration Rate [...] Performed By: #### 2 4321-2, , 2776-05 ####[facility]ATORYCLIA [id number] [place] [address] [place] Glucose [Mass/Vol] 125 mg/dL High 74-99 [facility] Comment on above: Order Comment: Speci men Type: BLOOD SPECIMENOrdering Facility: [facility] Address: [address] [place], [place] [address] Result Comment: The [place] Diabetes Association (ADA) provides guidance for cutoff [...] Standards of Medical Care in Diabetes 2016, [place] Diabetes Association. Diabetes Care. 2016.39(Suppl 1). Performed By: #### 2 4321-2, , 2776-05 ####[facility]ATORYCLIA [id number] [place] [address] [place] Potassium [Moles/Vol] 4.4 mmol/L Normal 3.7-5.1 [facility] Comment on above: Order Comment: Speci men Type: BLOOD SPECIMENOrdering Facility: [facility] Address: [address] [place], [place] [address] Performed By: #### 2 4321-2, , 2776-05 ####[facility]ATORYCLIA [id number] [place] [address] [place] Sodium [Moles/Vol] 143 mmol/L Normal 136-144 [facility] Comment on above: Order Comment: Speci men Type: BLOOD SPECIMENOrdering Facility: [facility] Address: [address] [place], [place] [address] Performed By: #### 2 4321-2, , 2776-05 ####[facility]ATORYCLIA [id number] [place] [address] [place] Urea nitrogen [Mass/Vol] 33 mg/dL High 9-24 [facility] Comment on above: Order Comment: Speci men Type: BLOOD SPECIMENOrdering Facility: [facility] Address: [address] [place] [address] Performed By: #### 2 4321-2, 06155-8, 2777-1 ####[facility]ATORYCLIA [id number] [address] [place] CASE MANAGEMon 07-18-2021 CASE MANAGEM Normal [facility] CBC W Auto Differential pane l (Bld)on 07-18-2021 Basophils (Bld) [#/Vol] 0.05 10*3/uL Normal <0.11 [facility] Comment on above: Order Comment: Speci men Type: BLOOD SPECIMENOrdering Facility: [facility] Address: [address] [place] [address] Performed By: #### 5 7021-8 ####[facility]ATORYCLIA [id number] [address] [place] Basophils/100 WBC (Bld) 0.5 % Normal [facility] Comment on above: Order Comment: Speci men Type: BLOOD SPECIMENOrdering Facility: [facility] Address: [address] [place] [address] Performed By: #### 5 7021-8 ####[facility]ATORYCLIA [id number] [address] [place] Differential cell count method Nom (Bld) Auto Normal [facility] Comment on above: Order Comment: Speci men Type: BLOOD SPECIMENOrdering Facility: [facility] Address: [address] [place] [address] Performed By: #### 5 7021-8 ####[facility]ATORYCLIA [id number] [place] [address] [place] Eosinophils (Bld) [#/Vol] 0.44 10*3/uL Normal <0.46 [facility] Comment on above: Order Comment: Speci men Type: BLOOD SPECIMENOrdering Facility: [facility] Address: [address] [place] [address] Performed By: #### 5 7021-8 ####[facility]ATORYCLIA [id number] [address] [place] Eosinophils/100 WBC (Bld) 4.3 % Normal [facility] Comment on above: Order Comment: Speci men Type: BLOOD SPECIMENOrdering Facility: [facility] Address: [address] [place] [address] Performed By: #### 5 7021-8 ####[facility]ATORYCLIA [id number] [address] [place] Erythrocyte distribution width (RBC) [Ratio] 16.6 % High 11.5-15.0 [facility] Comment on above: Order Comment: Speci men Type: BLOOD SPECIMENOrdering Facility: [facility] Address: [address] [place] [address] Performed By: #### 5 7021-8 ####[facility]ATORYCLIA [id number] [address] [place] Hematocrit (Bld) [Volume fraction] 32.2 % Low 39.0-51.0 [facility] Comment on above: Order Comment: Speci men Type: BLOOD SPECIMENOrdering Facility: [facility] Address: [address] [place] [address] Performed By: #### 5 7021-8 ####[facility]ATORYCLIA [id number] [address] [place] Hemoglobin (Bld) [Mass/Vol] 9.5 g/dL Low 13.0-17.0 [facility] Comment on above: Order Comment: Speci men Type: BLOOD SPECIMENOrdering Facility: [facility] Address: [address] [place] [address] Performed By: #### 5 7021-8 ####[facility]ORYCLIA [id number] [address] IMMATURE GRAN % 0.4 % Normal [facility] Comment on above: Order Comment: Speci men Type: BLOOD SPECIMENOrdering Facility: [facility] Address: [address] [place] [address] Performed By: #### 5 7021-8 ####[facility]ATORYCLIA [id number] [address] IMMATURE GRAN ABS 0.04 k/uL Normal <0.10 [facility] Comment on above: Order Comment: Speci men Type: BLOOD SPECIMENOrdering Facility: [facility] Address: [address] [place] [address] Performed By: #### 5 7021-8 ####[facility]ATORYCLIA [id number] [address] STATES [facility] Lymphocytes (Bld) [#/Vol] 1.71 10*3/uL Normal 1.00-4.00 [facility] Comment on above: Order Comment: Speci men Type: BLOOD SPECIMENOrdering Facility: [facility] Address: [address] [place] [address] Performed By: #### 5 7021-8 ####[facility]ATORYCLIA [id number] [address] Lymphocytes/100 WBC (Bld) 16.9 % Normal [facility] Comment on above: Order Comment: Speci men Type: BLOOD SPECIMENOrdering Facility: [facility] Address: [address] [place] [address] Performed By: #### 5 7021-8 ####[facility]ORATORYCLIA [id number] [address] [place] MCH (RBC) [Entitic mass] 27.9 pg Normal 26.0-34.0 [facility] Comment on above: Order Comment: Speci men Type: BLOOD SPECIMENOrdering Facility: [facility] Address: [address] [place] [address] Performed By: #### 5 7021-8 ####[facility]ATORYCLIA [id number] [address] STATES OF [facility] MCHC (RBC) [Mass/Vol] 29.5 g/dL Low 30.5-36.0 [facility] Comment on above: Order Comment: Speci men Type: BLOOD SPECIMENOrdering Facility: [facility] Address: [address] [place] [address] Performed By: #### 5 7021-8 ####[facility]ATORYCLIA [id number] [address] OF [facility] MCV (RBC) [Entitic vol] 94.7 fL Normal 80.0-100.0 [facility] Comment on above: Order Comment: Speci men Type: BLOOD SPECIMENOrdering Facility: [facility] Address: [address] [place] [address] Performed By: #### 5 7021-8 ####[facility]ORATORYCLIA [id number] [address] OF [facility] Monocytes (Bld) [#/Vol] 0.69 10*3/uL Normal <0.87 [facility] Comment on above: Order Comment: Speci men Type: BLOOD SPECIMENOrdering Facility: [facility] Address: [address] [place] [address] Performed By: #### 5 7021-8 ####[facility]ORATORYCLIA [id number] [address] Monocytes/100 WBC (Bld) 6.8 % Normal [facility] Comment on above: Order Comment: Speci men Type: BLOOD SPECIMENOrdering Facility: [facility] Address: [address] [place] [address] Performed By: #### 5 7021-8 ####[facility]ORATORYCLIA [id number] [address] [place] Neutrophils (Bld) [#/Vol] 7.19 10*3/uL Normal 1.45-7.50 [facility] Comment on above: Order Comment: Speci men Type: BLOOD SPECIMENOrdering Facility: [facility] Address: [address] [place] [address] Performed By: #### 5 7021-8 ####[facility]ORATORYCLIA [id number] [address] Neutrophils/100 WBC (Bld) 71.1 % Normal [facility] Comment on above: Order Comment: Speci men Type: BLOOD SPECIMENOrdering Facility: [facility] Address: [address] [place] [address] Performed By: #### 5 7021-8 ####[facility]ORATORYCLIA [id number] [address] [place] Nucleated RBC (Bld) [#/Vol] 10*3/uL Normal <0.01 [facility] Comment on above: Order Comment: Speci men Type: BLOOD SPECIMENOrdering Facility: [facility] Address: [address] [place] [address] Performed By: #### 5 7021-8 ####[facility]ATORYCLIA [id number] [address] Nucleated RBC/100 WBC (Bld) [Ratio] 0.0 /100 WBC Normal [facility] Comment on above: Order Comment: Speci men Type: BLOOD SPECIMENOrdering Facility: [facility] Address: [address] [place] [address] Performed By: #### 5 7021-8 ####[facility]ORATORYCLIA [id number] [address] [place] Platelet mean volume (Bld) [Entitic vol] 10.3 fL Normal 9.0-12.7 [facility] Comment on above: Order Comment: Speci men Type: BLOOD SPECIMENOrdering Facility: [facility] Address: [address] [place] [address] Performed By: #### 5 7021-8 ####[facility]ATORYCLIA [id number] [address] [place] Platelets (Bld) [#/Vol] 403 10*3/uL High 150-400 [facility] Comment on above: Order Comment: Speci men Type: BLOOD SPECIMENOrdering Facility: [facility] Address: [address] [place] [address] Performed By: #### 5 7021-8 ####[facility]ORATORYCLIA [id number] [place] [address] [place] RBC (Bld) [#/Vol] 3.40 10*6/uL Low 4.20-6.00 [facility] Comment on above: Order Comment: Speci men Type: BLOOD SPECIMENOrdering Facility: [facility] Address: [address] [place] [address] Performed By: #### 5 7021-8 ####[facility] LABORATORYCLIA [id number] [address] WBC (Bld) [#/Vol] 10.12 10*3/uL Normal 3.70-11.00 [facility] Comment on above: Order Comment: Speci men Type: BLOOD SPECIMENOrdering Facility: [facility] Address: [address] [place] [address] Performed By: #### 5 7021-8 ####[facility] LABORATORYCLIA [id number] [address] [place] Magnesium SerPl-mCncon 07-18 Magnesium [Mass/Vol] 2.4 mg/dL High 1.7-2.3 [facility] Comment on above: Order Comment: Speci men Type: BLOOD SPECIMENOrdering Facility: [facility] Address: [address] [place] [address] Performed By: #### 2 4321-2, 42840-7, 2777-1 ####[facility]ORATORYCLIA [id number] [address] [place] NURSING PROGon 07-18-2021 NURSING PROG Normal [facility] NURSING PROG Normal [facility] Phosphate SerPl-mCncon 07-18 Phosphate [Mass/Vol] 3.9 mg/dL Normal 2.7-4.8 [facility] Comment on above: Order Comment: Speci men Type: BLOOD SPECIMENOrdering Facility: [facility] Address: [address] [place] [address] Performed By: #### 2 4321-2, 56703-0, 2777-1 ####[facility]ATORYCLIA [id number] [address] [place] THERAPY NTon 07-18-2021 THERAPY NT Normal [facility] aPTT PPPon 07-18-2021 aPTT Coag (PPP) [Time] 52.3 s High 23.0-32.4 [facility] Comment on above: Order Comment: Speci men Type: BLOOD SPECIMENOrdering Facility: [facility] Address: [address] [place] [address] Performed By: #### 1 4979-9 ####[facility]ATORYCLIA [id number] [address] STATES OF [facility] CBC W Auto Differential pane l (Bld)on 07-17-2021 Basophils (Bld) [#/Vol] 0.05 10*3/uL Normal <0.11 [facility] Comment on above: Order Comment: Speci men Type: BLOOD SPECIMENOrdering Facility: [facility] Address: [address] [place] [address] Performed By: #### 5 7021-8 ####[facility]ATORYCLIA [id number] [address] [place] Basophils/100 WBC (Bld) 0.5 % Normal [facility] Comment on above: Order Comment: Speci men Type: BLOOD SPECIMENOrdering Facility: [facility] Address: [address] [place] [address] Performed By: #### 5 7021-8 ####[facility]ATORYCLIA [id number] [address] Differential cell count method Nom (Bld) Auto Normal [facility] Comment on above: Order Comment: Speci men Type: BLOOD SPECIMENOrdering Facility: [facility] Address: [address] [place] [address] Performed By: #### 5 7021-8 ####[facility]ATORYCLIA [id number] [address] [place] Eosinophils (Bld) [#/Vol] 0.32 10*3/uL Normal <0.46 [facility] Comment on above: Order Comment: Speci men Type: BLOOD SPECIMENOrdering Facility: [facility] Address: [address] [place] [address] Performed By: #### 5 7021-8 ####[facility]ATORYCLIA [id number] [address] [place] Eosinophils/100 WBC (Bld) 3.4 % Normal [facility] Comment on above: Order Comment: Speci men Type: BLOOD SPECIMENOrdering Facility: [facility] Address: [address] [place] [address] Performed By: #### 5 7021-8 ####[facility]ATORYCLIA [id number] [address] [place] Erythrocyte distribution width (RBC) [Ratio] 16.6 % High 11.5-15.0 [facility] Comment on above: Order Comment: Speci men Type: BLOOD SPECIMENOrdering Facility: [facility] Address: [address] [place] [address] Performed By: #### 5 7021-8 ####[facility]ATORYCLIA [id number] [address] [place] Hematocrit (Bld) [Volume fraction] 30.7 % Low 39.0-51.0 [facility] Comment on above: Order Comment: Speci men Type: BLOOD SPECIMENOrdering Facility: [facility] Address: [address] [place] [address] Performed By: #### 5 7021-8 ####[facility]ATORYCLIA [id number] [address] [place] Hemoglobin (Bld) [Mass/Vol] 9.0 g/dL Low 13.0-17.0 [facility] Comment on above: Order Comment: Speci men Type: BLOOD SPECIMENOrdering Facility: [facility] Address: [address] [place] [address] Performed By: #### 5 7021-8 ####[facility]ATORYCLIA [id number] [address] [place] IMMATURE GRAN % 0.6 % Normal [facility] Comment on above: Order Comment: Speci men Type: BLOOD SPECIMENOrdering Facility: [facility] Address: [address] [place] [address] Performed By: #### 5 7021-8 ####[facility]ORATORYCLIA [id number] [address] IMMATURE GRAN ABS 0.06 k/uL Normal <0.10 [facility] Comment on above: Order Comment: Speci men Type: BLOOD SPECIMENOrdering Facility: [facility] Address: [address] [place] [address] Performed By: #### 5 7021-8 ####[facility]ATORYCLIA [id number] [address] [place] Lymphocytes (Bld) [#/Vol] 1.61 10*3/uL Normal 1.00-4.00 [facility] Comment on above: Order Comment: Speci men Type: BLOOD SPECIMENOrdering Facility: [facility] Address: [address] [place] [address] Performed By: #### 5 7021-8 ####[facility]ATORYCLIA [id number] [address] Lymphocytes/100 WBC (Bld) 17.3 % Normal [facility] Comment on above: Order Comment: Speci men Type: BLOOD SPECIMENOrdering Facility: [facility] Address: [address] [place] [address] Performed By: #### 5 7021-8 ####[facility]ORATORYCLIA [id number] [address] STATES [facility] MCH (RBC) [Entitic mass] 26.9 pg Normal 26.0-34.0 [facility] Comment on above: Order Comment: Speci men Type: BLOOD SPECIMENOrdering Facility: [facility] Address: [address] [place] [address] Performed By: #### 5 7021-8 ####[facility]ATORYCLIA [id number] [address] STATES OF [facility] MCHC (RBC) [Mass/Vol] 29.3 g/dL Low 30.5-36.0 [facility] Comment on above: Order Comment: Speci men Type: BLOOD SPECIMENOrdering Facility: [facility] Address: [address] [place] [address] Performed By: #### 5 7021-8 ####[facility]ATORYCLIA [id number] [address] MCV (RBC) [Entitic vol] 91.9 fL Normal 80.0-100.0 [facility] Comment on above: Order Comment: Speci men Type: BLOOD SPECIMENOrdering Facility: [facility] Address: [address] [place] [address] Performed By: #### 5 7021-8 ####[facility]ORATORYCLIA [id number] [address] [place] Monocytes (Bld) [#/Vol] 0.61 10*3/uL Normal <0.87 [facility] Comment on above: Order Comment: Speci men Type: BLOOD SPECIMENOrdering Facility: [facility] Address: [address] [place] [address] Performed By: #### 5 7021-8 ####[facility]ATORYCLIA [id number] [address] Monocytes/100 WBC (Bld) 6.6 % Normal [facility] Comment on above: Order Comment: Speci men Type: BLOOD SPECIMENOrdering Facility: [facility] Address: [address] [place] [address] Performed By: #### 5 7021-8 ####[facility]ATORYCLIA [id number] [address] [place] Neutrophils (Bld) [#/Vol] 6.64 10*3/uL Normal 1.45-7.50 [facility] Comment on above: Order Comment: Speci men Type: BLOOD SPECIMENOrdering Facility: [facility] Address: [address] [place] [address] Performed By: #### 5 7021-8 ####[facility]ORATORYCLIA [id number] [address] [place] Neutrophils/100 WBC (Bld) 71.6 % Normal [facility] Comment on above: Order Comment: Speci men Type: BLOOD SPECIMENOrdering Facility: [facility] Address: [address] [place] [address] Performed By: #### 5 7021-8 ####[facility]ATORYCLIA [id number] [address] [place] Nucleated RBC (Bld) [#/Vol] 10*3/uL Normal <0.01 [facility] Comment on above: Order Comment: Speci men Type: BLOOD SPECIMENOrdering Facility: [facility] Address: [address] [place] [address] Performed By: #### 5 7021-8 ####[facility]ATORYCLIA [id number] [address] [place] Nucleated RBC/100 WBC (Bld) [Ratio] 0.0 /100 WBC Normal [facility] Comment on above: Order Comment: Speci men Type: BLOOD SPECIMENOrdering Facility: [facility] Address: [address] [place] [address] Performed By: #### 5 7021-8 ####[facility]ORATORYCLIA [id number] [place] [address] [place] Platelet mean volume (Bld) [Entitic vol] 10.1 fL Normal 9.0-12.7 [facility] Comment on above: Order Comment: Speci men Type: BLOOD SPECIMENOrdering Facility: [facility] Address: [address] [place] [address] Performed By: #### 5 7021-8 ####[facility]ATORYCLIA [id number] [address] [place] Platelets (Bld) [#/Vol] 387 10*3/uL Normal 150-400 [facility] Comment on above: Order Comment: Speci men Type: BLOOD SPECIMENOrdering Facility: [facility] Address: [address] [place] [address] Performed By: #### 5 7021-8 ####[facility]ATORYCLIA [id number] [address] [place] RBC (Bld) [#/Vol] 3.34 10*6/uL Low 4.20-6.00 [facility] Comment on above: Order Comment: Speci men Type: BLOOD SPECIMENOrdering Facility: [facility] Address: [address] [place] [address] Performed By: #### 5 7021-8 ####[facility]ATORYCLIA [id number] [address] STATES OF [facility] WBC (Bld) [#/Vol] 9.29 10*3/uL Normal 3.70-11.00 [facility] Comment on above: Order Comment: Speci men Type: BLOOD SPECIMENOrdering Facility: [facility] Address: [address] [place] [address] Performed By: #### 5 7021-8 ####[facility]ORATORYCLIA [id number] [address] OF [facility] CONSULT PROGon 07-17-2021 CONSULT PROG Normal [facility] Magnesium SerPl-mCncon 07-17 Magnesium [Mass/Vol] 2.3 mg/dL Normal 1.7-2.3 [facility] Comment on above: Order Comment: Speci men Type: BLOOD SPECIMENOrdering Facility: [facility] Address: [address] [place] [address] Performed By: #### 2 777-1, ####[facility]ATORYCLIA [id number] [address] OF [facility] NURSING PROGon 07-17-2021 NURSING PROG Normal [facility] NURSING PROG Normal [facility] NURSING PROG Normal [facility] Phosphate SerPl-mCncon 07-17 Phosphate [Mass/Vol] 3.6 mg/dL Normal 2.7-4.8 [facility] Comment on above: Order Comment: Speci men Type: BLOOD SPECIMENOrdering Facility: [facility] Address: [address] [place] [address] Performed By: #### 2 777-1, ####[facility]ATORYCLIA [id number] [address] [place] aPTT PPPon 07-17-2021 aPTT Coag (PPP) [Time] 57.2 s High 23.0-32.4 [facility] Comment on above: Order Comment: Speci men Type: BLOOD SPECIMENOrdering Facility: [facility] Address: [address] [place] [address] Performed By: #### 1 4979-9 ####[facility]ORATORYCLIA [id number] [place] [address] [place] Basic metabolic 2000 panelon 07-16-2021 Anion gap [Moles/Vol] 5 mmol/L Low 9-18 [facility] Comment on above: Order Comment: Speci men Type: BLOOD SPECIMENOrdering Facility: [facility] Address: [address] [place] [address] Performed By: #### 2 777-1, 38665-6, ####[facility]ATORYCLIA [id number] [place] [address] [place] Calcium [Mass/Vol] 9.1 mg/dL Normal 8.5-10.2 [facility] Comment on above: Order Comment: Speci men Type: BLOOD SPECIMENOrdering Facility: [facility] Address: [address] [place] [address] Performed By: #### 2 777-1, 00536-2, ####[facility]ATORYCLIA [id number] [place] [address] [place] Chloride [Moles/Vol] 101 mmol/L Normal 97-105 [facility] Comment on above: Order Comment: Speci men Type: BLOOD SPECIMENOrdering Facility: [facility] Address: [address] [place] [address] Performed By: #### 2 777-1, , ####[facility]ORATORYCLIA [id number] [address] STATES OF [facility] CO2 [Moles/Vol] 35 mmol/L High 22-30 [facility] Comment on above: Order Comment: Speci men Type: BLOOD SPECIMENOrdering Facility: [facility] Address: [address] [place] [address] Performed By: #### 2 777-1, , ####[facility]ATORYCLIA [id number] [address] [place] Creatinine [Mass/Vol] 0.73 mg/dL Normal 0.73-1.22 [facility] Comment on above: Order Comment: Speci men Type: BLOOD SPECIMENOrdering Facility: [facility] Address: [address] [place] [address] Performed By: #### 2 777-1, , ####[facility]ATORYCLIA [id number] [address] ESTIMATED GLOMERULAR FILTRATION RATE 98 mL/min/1.73m??? Normal >=60 [facility] Comment on above: Order Comment: Speci men Type: BLOOD SPECIMENOrdering Facility: [facility] Address: [address] [id number] Result Comment: Luzmaria mated Glomerular Filtration Rate [...] actual GFR. Performed By: #### 2 777-1, 00940-8, ####[facility]ITALCLIA [id number] [place] [address] [place] Glucose [Mass/Vol] 133 mg/dL High 74-99 [facility] Comment on above: Order Comment: Speccara feldman Type: BLOOD SPECIMENOrdering Facility: [facility] Address: [address] [place] [address] Result Comment: The [place] [employer] (ADA) provides guidance for cutoff [...] Standards of Medical Care in Diabetes 2016, [place] [employer]. Diabetes Care. 2016.39(Suppl 1). Performed By: #### 2 777-1, 71370-9, ####[facility]ATORYCLIA [id number] [place] [address] [place] Potassium [Moles/Vol] 4.2 mmol/L Normal 3.7-5.1 [facility] Comment on above: Order Comment: Shira feldman Type: BLOOD SPECIMENOrdering Facility: [facility] Address: [address] [id number] Performed By: #### 2 777-1, 98270-6, ####[facility]ATORYCLIA [id number] [place] [address] [place] [facility] Sodium [Moles/Vol] 141 mmol/L Normal 136-144 [facility] Comment on above: Order Comment: Speci men Type: BLOOD SPECIMENOrdering Facility: [facility] Address: [address] [place] [address] Performed By: #### 2 777-1, 61346-2, ####[facility]ATORYCLIA [id number] [place] [address] [place] Urea nitrogen [Mass/Vol] 21 mg/dL Normal 9-24 [facility] Comment on above: Order Comment: Speci men Type: BLOOD SPECIMENOrdering Facility: [facility] Address: [address] [place] [address] Performed By: #### 2 777-1, , ####[facility]ATORYCLIA [id number] [address] STATES OF [facility] CBC W Auto Differential pane l (Bld)on 07-16-2021 Basophils (Bld) [#/Vol] 0.06 10*3/uL Normal <0.11 [facility] Comment on above: Order Comment: Speci men Type: BLOOD SPECIMENOrdering Facility: [facility] Address: [address] [place] [address] Performed By: #### 5 7021-8 ####[facility]ATORYCLIA [id number] [address] [place] Basophils/100 WBC (Bld) 0.7 % Normal [facility] Comment on above: Order Comment: Speci men Type: BLOOD SPECIMENOrdering Facility: [facility] Address: [address] [place] [address] Performed By: #### 5 7021-8 ####[facility]ATORYCLIA [id number] [address] Differential cell count method Nom (Bld) Auto Normal [facility] Comment on above: Order Comment: Speci men Type: BLOOD SPECIMENOrdering Facility: [facility] Address: [address] [place] [address] Performed By: #### 5 7021-8 ####[facility]ATORYCLIA [id number] [address] [place] Eosinophils (Bld) [#/Vol] 0.35 10*3/uL Normal <0.46 [facility] Comment on above: Order Comment: Speci men Type: BLOOD SPECIMENOrdering Facility: [facility] Address: [address] [place] [address] Performed By: #### 5 7021-8 ####[facility]ATORYCLIA [id number] [address] OF [facility] Eosinophils/100 WBC (Bld) 3.9 % Normal [facility] Comment on above: Order Comment: Speci men Type: BLOOD SPECIMENOrdering Facility: [facility] Address: [address] [place] [address] Performed By: #### 5 7021-8 ####[facility]ATORYCLIA [id number] [address] [place] Erythrocyte distribution width (RBC) [Ratio] 16.5 % High 11.5-15.0 [facility] Comment on above: Order Comment: Speci men Type: BLOOD SPECIMENOrdering Facility: [facility] Address: [address] [place] [address] Performed By: #### 5 7021-8 ####[facility]ATORYCLIA [id number] [address] [place] Hematocrit (Bld) [Volume fraction] 30.9 % Low 39.0-51.0 [facility] Comment on above: Order Comment: Speci men Type: BLOOD SPECIMENOrdering Facility: [facility] Address: [address] [place] [address] Performed By: #### 5 7021-8 ####[facility]ATORYCLIA [id number] [address] OF [facility] Hemoglobin (Bld) [Mass/Vol] 9.1 g/dL Low 13.0-17.0 [facility] Comment on above: Order Comment: Speci men Type: BLOOD SPECIMENOrdering Facility: [facility] Address: [address] [place] [address] Performed By: #### 5 7021-8 ####[facility]ATORYCLIA [id number] [address] IMMATURE GRAN % 0.4 % Normal [facility] Comment on above: Order Comment: Speci men Type: BLOOD SPECIMENOrdering Facility: [facility] Address: [address] [place] [address] Performed By: #### 5 7021-8 ####[facility]ATORYCLIA [id number] [address] IMMATURE GRAN ABS 0.04 k/uL Normal <0.10 [facility] Comment on above: Order Comment: Speci men Type: BLOOD SPECIMENOrdering Facility: [facility] Address: [address] [place] [address] Performed By: #### 5 7021-8 ####[facility]ATORYCLIA [id number] [address] [place] Lymphocytes (Bld) [#/Vol] 1.35 10*3/uL Normal 1.00-4.00 [facility] Comment on above: Order Comment: Speci men Type: BLOOD SPECIMENOrdering Facility: [facility] Address: [address] [place] [address] Performed By: #### 5 7021-8 ####[facility]ATORYCLIA [id number] [address] Lymphocytes/100 WBC (Bld) 15.0 % Normal [facility] Comment on above: Order Comment: Speci men Type: BLOOD SPECIMENOrdering Facility: [facility] Address: [address] [place] [address] Performed By: #### 5 7021-8 ####[facility]ATORYCLIA [id number] [address] MCH (RBC) [Entitic mass] 27.1 pg Normal 26.0-34.0 [facility] Comment on above: Order Comment: Speci men Type: BLOOD SPECIMENOrdering Facility: [facility] Address: [address] [place] [address] Performed By: #### 5 7021-8 ####[facility]ORATORYCLIA [id number] [address] STATES [facility] MCHC (RBC) [Mass/Vol] 29.4 g/dL Low 30.5-36.0 [facility] Comment on above: Order Comment: Speci men Type: BLOOD SPECIMENOrdering Facility: [facility] Address: [address] [place] [address] Performed By: #### 5 7021-8 ####[facility]ATORYCLIA [id number] [address] MCV (RBC) [Entitic vol] 92.0 fL Normal 80.0-100.0 [facility] Comment on above: Order Comment: Speci men Type: BLOOD SPECIMENOrdering Facility: [facility] Address: [address] [place] [address] Performed By: #### 5 7021-8 ####[facility]ORATORYCLIA [id number] [address] Monocytes (Bld) [#/Vol] 0.53 10*3/uL Normal <0.87 [facility] Comment on above: Order Comment: Speci men Type: BLOOD SPECIMENOrdering Facility: [facility] Address: [address] [place] [address] Performed By: #### 5 7021-8 ####[facility]ATORYCLIA [id number] [address] Monocytes/100 WBC (Bld) 5.9 % Normal [facility] Comment on above: Order Comment: Speci men Type: BLOOD SPECIMENOrdering Facility: [facility] Address: [address] [address] Performed By: #### 5 7021-8 ####[facility]ORYCLIA [id number] [address] [place] Neutrophils (Bld) [#/Vol] 6.67 10*3/uL Normal 1.45-7.50 [facility] Comment on above: Order Comment: Speci men Type: BLOOD SPECIMENOrdering Facility: [facility] Address: [address] [place] [address] Performed By: #### 5 7021-8 ####[facility]ATORYCLIA [id number] [address] Neutrophils/100 WBC (Bld) 74.1 % Normal [facility] Comment on above: Order Comment: Speci men Type: BLOOD SPECIMENOrdering Facility: [facility] Address: [address] [place] [address] Performed By: #### 5 7021-8 ####[facility]ATORYCLIA [id number] [address] [place] Nucleated RBC (Bld) [#/Vol] 10*3/uL Normal <0.01 [facility] Comment on above: Order Comment: Speci men Type: BLOOD SPECIMENOrdering Facility: [facility] Address: [address] [address] Performed By: #### 5 7021-8 ####[facility]ORYCLIA [id number] [address] Nucleated RBC/100 WBC (Bld) [Ratio] 0.0 /100 WBC Normal [facility] Comment on above: Order Comment: Speci men Type: BLOOD SPECIMENOrdering Facility: [facility] Address: [address] [place] [address] Performed By: #### 5 7021-8 ####[facility]ORATORYCLIA [id number] [address] Platelet mean volume (Bld) [Entitic vol] 9.9 fL Normal 9.0-12.7 [facility] Comment on above: Order Comment: Speci men Type: BLOOD SPECIMENOrdering Facility: [facility] Address: [address] [place] [address] Performed By: #### 5 7021-8 ####[facility]ATORYCLIA [id number] [address] [place] Platelets (Bld) [#/Vol] 391 10*3/uL Normal 150-400 [facility] Comment on above: Order Comment: Speci men Type: BLOOD SPECIMENOrdering Facility: [facility] Address: [address] [place] [address] Performed By: #### 5 7021-8 ####[facility]ORATORYCLIA [id number] [address] [place] [facility] RBC (Bld) [#/Vol] 3.36 10*6/uL Low 4.20-6.00 [facility] Comment on above: Order Comment: Speci men Type: BLOOD SPECIMENOrdering Facility: [facility] Address: [address] [place] [address] Performed By: #### 5 7021-8 ####[facility] LABORATORYCLIA [id number] [address] [place] [facility] WBC (Bld) [#/Vol] 9.00 10*3/uL Normal 3.70-11.00 [facility] Comment on above: Order Comment: Speci men Type: BLOOD SPECIMENOrdering Facility: [facility] Address: [address] [place] [address] Performed By: #### 5 7021-8 ####[facility] LABORATORYCLIA [id number] [address] CONSULT PROGon 07-16-2021 CONSULT PROG Normal [facility] CONSULT PROG Normal [facility] Magnesium SerPl-mCncon 07-16 Magnesium [Mass/Vol] 2.3 mg/dL Normal 1.7-2.3 [facility] Comment on above: Order Comment: Speci men Type: BLOOD SPECIMENOrdering Facility: [facility] Address: [address] [place] [address] Performed By: #### 2 777-1, 97492-6, 15438-7 ####[facility] LABORATORYCLIA [id number] [address] OF [facility] NURSING PROGon 07-16-2021 NURSING PROG Normal [facility] Phosphate SerPl-mCncon 07-16 Phosphate [Mass/Vol] 3.6 mg/dL Normal 2.7-4.8 [facility] Comment on above: Order Comment: Speci men Type: BLOOD SPECIMENOrdering Facility: [facility] Address: [address] [place] [address] Performed By: #### 2 777-1, 92497-0, ####[facility] LABORATORYCLIA [id number] [address] [place] Vancomycin random [Mass/Vol] on 07-16-2021 Vancomycin [Mass/Vol] 16.9 ug/mL Normal 10.0-20.0 [facility] Comment on above: Order Comment: Speci men Type: BLOOD SPECIMENOrdering Facility: [facility] Address: [address] [place] [address] Result Comment: Refe rence ranges and high/low indicator flags are provided as general guidelines only. The treating physician must determine appropriate target levels/dosing based on the specific clinical situation. Performed By: #### 4 091-5 ####[facility]ORATORYCLIA [id number] [address] [place] aPTT PPPon 07-16-2021 aPTT Coag (PPP) [Time] 57.2 s High 23.0-32.4 [facility] Comment on above: Order Comment: Speci men Type: BLOOD SPECIMENOrdering Facility: [facility] Address: [address] [place] [address] Performed By: #### 1 4979-9 ####[facility]ORATORYCLIA [id number] [place] [address] [place] ALLIED HEALTHon 07-15-2021 ALLIED HEALTH Normal [facility] Basic metabolic 2000 panelon 07-15-2021 Anion gap [Moles/Vol] 11 mmol/L Normal 9-18 [facility] Comment on above: Order Comment: Speci men Type: BLOOD SPECIMENOrdering Facility: [facility] Address: [address] [place] [address] Performed By: #### 2 4321-2, , 2776-05 ####[facility]ORATORYCLIA [id number] [place] [address] [place] Calcium [Mass/Vol] 8.8 mg/dL Normal 8.5-10.2 [facility] Comment on above: Order Comment: Speci men Type: BLOOD SPECIMENOrdering Facility: [facility] Address: [address] [place] [address] Performed By: #### 2 4321-2, , 2776-05 ####[facility]ORATORYCLIA [id number] [place] [address] [place] Chloride [Moles/Vol] 101 mmol/L Normal 97-105 [facility] Comment on above: Order Comment: Speci men Type: BLOOD SPECIMENOrdering Facility: [facility] Address: [address] [place] [address] Performed By: #### 2 4321-2, , 2776-05 ####[facility]ORATORYCLIA [id number] [place] [id number] [place] CO2 [Moles/Vol] 31 mmol/L High 22-30 [facility] Comment on above: Order Comment: Speci men Type: BLOOD SPECIMENOrdering Facility: [facility] Address: [address] [place] [address] Performed By: #### 2 4321-2, , 2776- ####[facility]ORATORYCLIA [id number] [place], [place] [address] [place] [address] [place] Creatinine [Mass/Vol] 0.76 mg/dL Normal 0.73-1.22 [facility] Comment on above: Order Comment: Shira feldman Type: BLOOD SPECIMENOrdering Facility: [facility] Address: [address] [place] [address] Performed By: #### 2 4321-2, , 2776-05 ####[facility]ORATORYCLIA [id number] [place] [id number] [facility] [place] ESTIMATED GLOMERULAR FILTRATION RATE 97 mL/min/1.73m??? Normal >=60 [facility] Comment on above: Order Comment: Shira feldman Type: BLOOD SPECIMENOrdering Facility: [facility] Address: [address] [place] [address] Result Comment: Luzmaria mated Glomerular Filtration Rate [...] Performed By: #### 2 4321-2, , 2776-05 ####[facility]ORATORYCLIA [id number] [place] [id number] [place] Glucose [Mass/Vol] 115 mg/dL High 74-99 [facility] Comment on above: Order Comment: Shira feldman Type: BLOOD SPECIMENOrdering Facility: [facility] Address: [address] [place] [address] Result Comment: The [place] [employer] (ADA) provides guidance for cutoff [...] Standards of Medical Care in Diabetes 2016, [place] [employer]. Diabetes Care. 2016.39(Suppl 1). Performed By: #### 2 4321-2, , 2776-05 ####[facility]ORATORYCLIA [id number] [place], [place] [address] [place] [address] [place] [facility] Potassium [Moles/Vol] 4.0 mmol/L Normal 3.7-5.1 [facility] Comment on above: Order Comment: Shira feldman Type: BLOOD SPECIMENOrdering Facility: [facility] Address: [address] [place] [address] Performed By: #### 2 4321-2, , 2776-05 ####[facility]ORATORYCLIA [id number] [address] STATES [facility] Sodium [Moles/Vol] 143 mmol/L Normal 136-144 [facility] Comment on above: Order Comment: Shira feldman Type: BLOOD SPECIMENOrdering Facility: [facility] Address: [address] [place] [address] Performed By: #### 2 4321-2, , 2776-05 ####[facility]ORATORYCLIA [id number] [address] STATES OF [facility] Urea nitrogen [Mass/Vol] 17 mg/dL Normal 9-24 [facility] Comment on above: Order Comment: Shira feldman Type: BLOOD SPECIMENOrdering Facility: [facility] Address: [address] [place] [address] Performed By: #### 2 4321-2, , 2776-05 ####[facility] LABORATORYCLIA [id number] [address] STATES OF [facility] CASE MANAGEMon 07-15-2021 CASE MANAGEM Normal [facility] CBC panel Auto (Bld)on 07-15 Erythrocyte distribution width (RBC) [Ratio] 16.4 % High 11.5-15.0 [facility] Comment on above: Order Comment: Speci men Type: BLOOD SPECIMENOrdering Facility: [facility] Address: [address] [place] [address] Performed By: #### 5 8410-2 ####[facility]ORATORYCLIA [id number] [address] Hematocrit (Bld) [Volume fraction] 30.3 % Low 39.0-51.0 [facility] Comment on above: Order Comment: Speci men Type: BLOOD SPECIMENOrdering Facility: [facility] Address: [address] [place] [address] Performed By: #### 5 8410-2 ####[facility]ORATORYCLIA [id number] [address] Hemoglobin (Bld) [Mass/Vol] 9.2 g/dL Low 13.0-17.0 [facility] Comment on above: Order Comment: Speci men Type: BLOOD SPECIMENOrdering Facility: [facility] Address: [address] [place] [address] Performed By: #### 5 8410-2 ####[facility]ORATORYCLIA [id number] [address] MCH (RBC) [Entitic mass] 28.3 pg Normal 26.0-34.0 [facility] Comment on above: Order Comment: Speci men Type: BLOOD SPECIMENOrdering Facility: [facility] Address: [address] [place] [address] Performed By: #### 5 8410-2 ####[facility]ORATORYCLIA [id number] [address] [place] MCHC (RBC) [Mass/Vol] 30.4 g/dL Low 30.5-36.0 [facility] Comment on above: Order Comment: Speci men Type: BLOOD SPECIMENOrdering Facility: [facility] Address: [address] [place] [address] Performed By: #### 5 8410-2 ####[facility]ORATORYCLIA [id number] [address] OF [facility] MCV (RBC) [Entitic vol] 93.2 fL Normal 80.0-100.0 [facility] Comment on above: Order Comment: Speci men Type: BLOOD SPECIMENOrdering Facility: [facility] Address: [address] [place] [address] Performed By: #### 5 8410-2 ####[facility]ORATORYCLIA [id number] [address] Nucleated RBC (Bld) [#/Vol] 10*3/uL Normal <0.01 [facility] Comment on above: Order Comment: Speci men Type: BLOOD SPECIMENOrdering Facility: [facility] Address: [address] [place] [address] Performed By: #### 5 8410-2 ####[facility]ORATORYCLIA [id number] [address] Platelet mean volume (Bld) [Entitic vol] 9.9 fL Normal 9.0-12.7 [facility] Comment on above: Order Comment: Speci men Type: BLOOD SPECIMENOrdering Facility: [facility] Address: [address] [place] [address] Performed By: #### 5 8410-2 ####[facility]ORATORYCLIA [id number] [address] Platelets (Bld) [#/Vol] 381 10*3/uL Normal 150-400 [facility] Comment on above: Order Comment: Speci men Type: BLOOD SPECIMENOrdering Facility: [facility] Address: [address] [place] [address] Performed By: #### 5 8410-2 ####[facility]ORATORYCLIA [id number] [address] [place] RBC (Bld) [#/Vol] 3.25 10*6/uL Low 4.20-6.00 [facility] Comment on above: Order Comment: Speci men Type: BLOOD SPECIMENOrdering Facility: [facility] Address: [address] [place] [address] Performed By: #### 5 8410-2 ####[facility]ORATORYCLIA [id number] [address] WBC (Bld) [#/Vol] 8.80 10*3/uL Normal 3.70-11.00 [facility] Comment on above: Order Comment: Speci men Type: BLOOD SPECIMENOrdering Facility: [facility] Address: [address] [place] [address] Performed By: #### 5 8410-2 ####[facility]ORATORYCLIA [id number] [address] Magnesium SerPl-mCncon 07-15 Magnesium [Mass/Vol] 2.2 mg/dL Normal 1.7-2.3 [facility] Comment on above: Order Comment: Speci men Type: BLOOD SPECIMENOrdering Facility: [facility] Address: [address] [place] [address] Performed By: #### 2 4321-2, , 2776-05 ####[facility]ORATORYCLIA [id number] [address] NURSING PROGon 07-15-2021 NURSING PROG Normal [facility] NURSING PROG Normal [facility] NURSING PROG Normal [facility] NUTRITIONon 07-15-2021 NUTRITION Normal [facility] Phosphate SerPl-mCncon 07-15 Phosphate [Mass/Vol] 3.4 mg/dL Normal 2.7-4.8 [facility] Comment on above: Order Comment: Speci men Type: BLOOD SPECIMENOrdering Facility: [facility] Address: [address] [place] [address] Performed By: #### 2 4321-2, 88672-0, 2777-1 ####[facility]ORATORYCLIA [id number] [address] THERAPY NTon 07-15-2021 THERAPY NT Normal [facility] US DVT UPPER LTon 07-15-2021 US DVT UPPER LT Normal [facility] XR CHEST 1V FRONTALon 2021 XR CHEST 1V FRONTAL Normal [facility] aPTT PPPon 07-15-2021 aPTT Coag (PPP) [Time] 59.9 s High 23.0-32.4 [facility] Comment on above: Order Comment: Speci men Type: BLOOD SPECIMENOrdering Facility: [facility] Address: [address] [place] [address] Performed By: #### 1 4979-9 ####[facility]ORATORYCLIA [id number] [place] [address] [place] Basic metabolic 2000 panelon 07-14-2021 Anion gap [Moles/Vol] 9 mmol/L Normal 9-18 [facility] Comment on above: Order Comment: Speci men Type: BLOOD SPECIMENOrdering Facility: [facility] Address: [address] [place] [address] Performed By: #### 1 9123-9, 2777-1, 49165-3 ####[facility]ORATORYCLIA [id number] [place] [address] [place] Calcium [Mass/Vol] 8.5 mg/dL Normal 8.5-10.2 [facility] Comment on above: Order Comment: Speci men Type: BLOOD SPECIMENOrdering Facility: [facility] Address: [address] [place] [address] Performed By: #### 1 9123-9, 2777-1, 29452-0 ####[facility]ORATORYCLIA [id number] [place] [address] [place] Chloride [Moles/Vol] 99 mmol/L Normal 97-105 [facility] Comment on above: Order Comment: Speci men Type: BLOOD SPECIMENOrdering Facility: [facility] Address: [address] [place] [address] Performed By: #### 1 9123-9, 2777-1, ####[facility]ORATORYCLIA [id number] [place] [address] [place] CO2 [Moles/Vol] 31 mmol/L High 22-30 [facility] Comment on above: Order Comment: Speci men Type: BLOOD SPECIMENOrdering Facility: [facility] Address: [address] [place] [address] Performed By: #### 1 9123-9, 2776-05, ####[facility]OSPITALCLIA [id number] [place] [address] [place] [facility] Creatinine [Mass/Vol] 0.74 mg/dL Normal 0.73-1.22 [facility] Comment on above: Order Comment: Speci men Type: BLOOD SPECIMENOrdering Facility: [facility] Address: [address] [place] [address] Performed By: #### 1 9123-9, 2776-05, ####[facility] [id number] [address] ESTIMATED GLOMERULAR FILTRATION RATE 98 mL/min/1.73m??? Normal >=60 [facility] Comment on above: Order Comment: Speci men Type: BLOOD SPECIMENOrdering Facility: [facility] Address: [address] [place] [address] Result Comment: Luzmaria mated Glomerular Filtration Rate [...] GFR. Performed By: #### 1 9123-9, 2777, 03929-9 ####[facility] HOSPITALCLIA [id number] [place] [address] [place] Glucose [Mass/Vol] 117 mg/dL High 74-99 [facility] Comment on above: Order Comment: Speci men Type: BLOOD SPECIMENOrdering Facility: [facility] Address: [address] [place] [address] Result Comment: The [place] [employer] (ADA) provides guidance for cutoff [...] Standards of Medical Care in Diabetes 2016, [place] [employer]. Diabetes Care. 2016.39(Suppl 1). Performed By: #### 1 9123-9, 2777-, 91467-0 ####[facility]ORATORYCLIA [id number] [place] [address] [place] Potassium [Moles/Vol] 3.7 mmol/L Normal 3.7-5.1 [facility] Comment on above: Order Comment: Speci men Type: BLOOD SPECIMENOrdering Facility: [facility] Address: [address] [place], [place] [address] Performed By: #### 1 9123-9, 2777-, 88439-0 ####[facility]ORATORYCLIA [id number] [place] [address] [place] Sodium [Moles/Vol] 139 mmol/L Normal 136-144 [facility] Comment on above: Order Comment: Speci men Type: BLOOD SPECIMENOrdering Facility: [facility] Address: [address] [place], [place] [address] Performed By: #### 1 9123-9, 2777, 45304-8 ####[facility]ORATORYCLIA [id number] [place] [address] [place] Urea nitrogen [Mass/Vol] 16 mg/dL Normal 9-24 [facility] Comment on above: Order Comment: Speci men Type: BLOOD SPECIMENOrdering Facility: [facility] Address: [address] [place] [address] Performed By: #### 1 9123-9, 2777-1, 88202-5 ####[facility]ORATORYCLIA [id number] [address] CBC panel Auto (Bld)on 07-14 Erythrocyte distribution width (RBC) [Ratio] 16.2 % High 11.5-15.0 [facility] Comment on above: Order Comment: Speci men Type: BLOOD SPECIMENOrdering Facility: [facility] Address: [address] [place] [address] Performed By: #### 5 8410-2 ####[facility]ORATORYCLIA [id number] [address] Hematocrit (Bld) [Volume fraction] 29.7 % Low 39.0-51.0 [facility] Comment on above: Order Comment: Speci men Type: BLOOD SPECIMENOrdering Facility: [facility] Address: [address] [place] [address] Performed By: #### 5 8410-2 ####[facility]ORATORYCLIA [id number] [address] Hemoglobin (Bld) [Mass/Vol] 8.8 g/dL Low 13.0-17.0 [facility] Comment on above: Order Comment: Speci men Type: BLOOD SPECIMENOrdering Facility: [facility] Address: [address] [place] [address] Performed By: #### 5 8410-2 ####[facility]ORATORYCLIA [id number] [address] [place] MCH (RBC) [Entitic mass] 27.5 pg Normal 26.0-34.0 [facility] Comment on above: Order Comment: Speci men Type: BLOOD SPECIMENOrdering Facility: [facility] Address: [address] [place] [address] Performed By: #### 5 8410-2 ####[facility]ORATORYCLIA [id number] [address] MCHC (RBC) [Mass/Vol] 29.6 g/dL Low 30.5-36.0 [facility] Comment on above: Order Comment: Speci men Type: BLOOD SPECIMENOrdering Facility: [facility] Address: [address] [place] [address] Performed By: #### 5 8410-2 ####[facility]ORATORYCLIA [id number] [address] MCV (RBC) [Entitic vol] 92.8 fL Normal 80.0-100.0 [facility] Comment on above: Order Comment: Speci men Type: BLOOD SPECIMENOrdering Facility: [facility] Address: [address] [place] [address] Performed By: #### 5 8410-2 ####[facility]ORATORYCLIA [id number] [address] Nucleated RBC (Bld) [#/Vol] 10*3/uL Normal <0.01 [facility] Comment on above: Order Comment: Speci men Type: BLOOD SPECIMENOrdering Facility: [facility] Address: [address] [place] [address] Performed By: #### 5 8410-2 ####[facility]ORATORYCLIA [id number] [address] [place] Platelet mean volume (Bld) [Entitic vol] 9.6 fL Normal 9.0-12.7 [facility] Comment on above: Order Comment: Speci men Type: BLOOD SPECIMENOrdering Facility: [facility] Address: [address] [place] [address] Performed By: #### 5 8410-2 ####[facility]ORATORYCLIA [id number] [address] [place] Platelets (Bld) [#/Vol] 354 10*3/uL Normal 150-400 [facility] Comment on above: Order Comment: Speci men Type: BLOOD SPECIMENOrdering Facility: [facility] Address: [address] [place] [address] Performed By: #### 5 8410-2 ####[facility]ORATORYCLIA [id number] [address] RBC (Bld) [#/Vol] 3.20 10*6/uL Low 4.20-6.00 [facility] Comment on above: Order Comment: Speci men Type: BLOOD SPECIMENOrdering Facility: [facility] Address: [address] [place] [address] Performed By: #### 5 8410-2 ####[facility]ORATORYCLIA [id number] [address] WBC (Bld) [#/Vol] 9.41 10*3/uL Normal 3.70-11.00 [facility] Comment on above: Order Comment: Speci men Type: BLOOD SPECIMENOrdering Facility: [facility] Address: [address] [place] [address] Performed By: #### 5 8410-2 ####[facility]ORATORYCLIA [id number] [address] CONSULT PROGon 07-14-2021 CONSULT PROG Normal [facility] Magnesium SerPl-mCncon 07-14 Magnesium [Mass/Vol] 2.2 mg/dL Normal 1.7-2.3 [facility] Comment on above: Order Comment: Speci men Type: BLOOD SPECIMENOrdering Facility: [facility] Address: [address] [place] [address] Performed By: #### 1 9123-9, 2777-1, 91124-6 ####[facility]ORATORYCLIA [id number] [address] NURSING PROGon 07-14-2021 NURSING PROG Normal [facility] Phosphate SerPl-mCncon 07-14 Phosphate [Mass/Vol] 3.6 mg/dL Normal 2.7-4.8 [facility] Comment on above: Order Comment: Speci men Type: BLOOD SPECIMENOrdering Facility: [facility] Address: [address] [place] [address] Performed By: #### 1 9123-9, 2777-1, 49148-2 ####[facility]ATORYCLIA [id number] [address] [place] aPTT PPPon 07-14-2021 aPTT Coag (PPP) [Time] 62.9 s High 23.0-32.4 [facility] Comment on above: Order Comment: Speci men Type: BLOOD SPECIMENOrdering Facility: [facility] Address: [address] [place] [address] Performed By: #### 1 4979-9 ####[facility]ORATORYCLIA [id number] [address] [place] aPTT Coag (PPP) [Time] 55.2 s High 23.0-32.4 [facility] Comment on above: Order Comment: Speci men Type: BLOOD SPECIMENOrdering Facility: [facility] Address: [address] [place] [address] Performed By: #### 1 4979-9 ####[facility]ORATORYCLIA [id number] [place] [address] [place] Basic metabolic 2000 panelon 07-13-2021 Anion gap [Moles/Vol] 10 mmol/L Normal 9-18 [facility] Comment on above: Order Comment: Speci men Type: BLOOD SPECIMENOrdering Facility: [facility] Address: [address] [place] [address] Performed By: #### 1 9123-9, 2777, 58207-9 ####[facility]ORATORYCLIA [id number] [address] STATES OF [facility] Calcium [Mass/Vol] 8.5 mg/dL Normal 8.5-10.2 [facility] Comment on above: Order Comment: Speci men Type: BLOOD SPECIMENOrdering Facility: [facility] Address: [address] [place] [address] Performed By: #### 1 9123-9, 2777-1, 92469-2 ####[facility]ATORYCLIA [id number] [address] STATES OF [facility] Chloride [Moles/Vol] 98 mmol/L Normal 97-105 [facility] Comment on above: Order Comment: Speci men Type: BLOOD SPECIMENOrdering Facility: [facility] Address: [address] [place] [address] Performed By: #### 1 9123-9, 2777-1, 02682-2 ####[facility]ATORYCLIA [id number] [address] [place] CO2 [Moles/Vol] 32 mmol/L High 22-30 [facility] Comment on above: Order Comment: Speci men Type: BLOOD SPECIMENOrdering Facility: [facility] Address: [address] [place] [address] Performed By: #### 1 9123-9, 2777-, 47630-5 ####[facility]ORATORYCLIA [id number] [address] STATES OF [facility] Creatinine [Mass/Vol] 0.75 mg/dL Normal 0.73-1.22 [facility] Comment on above: Order Comment: Speci men Type: BLOOD SPECIMENOrdering Facility: [facility] Address: [address] [place] [address] Performed By: #### 1 9123-9, 2777-, 75657-6 ####[facility]ORATORYCLIA [id number] [address] [place] ESTIMATED GLOMERULAR FILTRATION RATE 98 mL/min/1.73m??? Normal >=60 [facility] Comment on above: Order Comment: Speci men Type: BLOOD SPECIMENOrdering Facility: [facility] Address: [address] [place] [address] Result Comment: Luzmaria mated Glomerular Filtration Rate [...] GFR. Performed By: #### 1 9123-9, 2777-, 28379-9 ####[facility] LABORATORYCLIA [id number] [place] [address] [place] Glucose [Mass/Vol] 118 mg/dL High 74-99 [facility] Comment on above: Order Comment: Shira feldman Type: BLOOD SPECIMENOrdering Facility: [facility] Address: [address] [place] [id number] Result Comment: The [place] [employer] (ADA) provides guidance for cutoff [...] Standards of Medical Care in Diabetes 2016, [place] [employer]. Diabetes Care. 2016.39(Suppl 1). Performed By: #### 1 9123-9, 2776-05, 32722-4 ####[facility] LABORATORYCLIA [id number] [place] [id number] [place] Potassium [Moles/Vol] 3.6 mmol/L Low 3.7-5.1 [facility] Comment on above: Order Comment: Shira feldman Type: BLOOD SPECIMENOrdering Facility: [facility] Address: [address] [place] [address] Performed By: #### 1 9123-9, 2777-, 87736-4 ####[facility] LABORATORYCLIA [id number] [place] [address] [place] Sodium [Moles/Vol] 140 mmol/L Normal 136-144 [facility] Comment on above: Order Comment: Speci men Type: BLOOD SPECIMENOrdering Facility: [facility] Address: [address] [place] [address] Performed By: #### 1 9123-9, 2777-1, 98499-1 ####[facility]ORATORYCLIA [id number] [address] STATES OF [facility] Urea nitrogen [Mass/Vol] 15 mg/dL Normal 9-24 [facility] Comment on above: Order Comment: Speci men Type: BLOOD SPECIMENOrdering Facility: [facility] Address: [address] [place] [address] Performed By: #### 1 9123-9, 2777-, 53066-3 ####[facility]ORATORYCLIA [id number] [address] OF [facility] CASE MANAGEMon 07-13-2021 CASE MANAGEM Normal [facility] CBC panel Auto (Bld)on 07-13 Erythrocyte distribution width (RBC) [Ratio] 16.2 % High 11.5-15.0 [facility] Comment on above: Order Comment: Speci men Type: BLOOD SPECIMENOrdering Facility: [facility] Address: [address] [place] [address] Performed By: #### 5 8410-2 ####[facility]ORATORYCLIA [id number] [address] STATES OF [facility] Hematocrit (Bld) [Volume fraction] 29.5 % Low 39.0-51.0 [facility] Comment on above: Order Comment: Speci men Type: BLOOD SPECIMENOrdering Facility: [facility] Address: [address] [place] [address] Performed By: #### 5 8410-2 ####[facility]ORATORYCLIA [id number] [address] [place] Hemoglobin (Bld) [Mass/Vol] 8.9 g/dL Low 13.0-17.0 [facility] Comment on above: Order Comment: Speci men Type: BLOOD SPECIMENOrdering Facility: [facility] Address: [address] [place] [address] Performed By: #### 5 8410-2 ####[facility]ORATORYCLIA [id number] [address] MCH (RBC) [Entitic mass] 27.8 pg Normal 26.0-34.0 [facility] Comment on above: Order Comment: Speci men Type: BLOOD SPECIMENOrdering Facility: [facility] Address: [address] [place] [address] Performed By: #### 5 8410-2 ####[facility]ORATORYCLIA [id number] [address] MCHC (RBC) [Mass/Vol] 30.2 g/dL Low 30.5-36.0 [facility] Comment on above: Order Comment: Speci men Type: BLOOD SPECIMENOrdering Facility: [facility] Address: [address] [place] [address] Performed By: #### 5 8410-2 ####[facility]ORATORYCLIA [id number] [address] MCV (RBC) [Entitic vol] 92.2 fL Normal 80.0-100.0 [facility] Comment on above: Order Comment: Speci men Type: BLOOD SPECIMENOrdering Facility: [facility] Address: [address] [place] [address] Performed By: #### 5 8410-2 ####[facility]ORATORYCLIA [id number] [address] Nucleated RBC (Bld) [#/Vol] 10*3/uL Normal <0.01 [facility] Comment on above: Order Comment: Speci men Type: BLOOD SPECIMENOrdering Facility: [facility] Address: [address] [place] [address] Performed By: #### 5 8410-2 ####[facility]ORATORYCLIA [id number] [address] [place] Platelet mean volume (Bld) [Entitic vol] 9.8 fL Normal 9.0-12.7 [facility] Comment on above: Order Comment: Speci men Type: BLOOD SPECIMENOrdering Facility: [facility] Address: [address] [place] [address] Performed By: #### 5 8410-2 ####[facility]ORATORYCLIA [id number] [place] [address] [place] Platelets (Bld) [#/Vol] 356 10*3/uL Normal 150-400 [facility] Comment on above: Order Comment: Speci men Type: BLOOD SPECIMENOrdering Facility: [facility] Address: [address] [place] [address] Performed By: #### 5 8410-2 ####[facility]ORATORYCLIA [id number] [place] [address] [place] RBC (Bld) [#/Vol] 3.20 10*6/uL Low 4.20-6.00 [facility] Comment on above: Order Comment: Speci men Type: BLOOD SPECIMENOrdering Facility: [facility] Address: [address] [place] [address] Performed By: #### 5 8410-2 ####[facility]ORATORYCLIA [id number] [address] [place] WBC (Bld) [#/Vol] 9.20 10*3/uL Normal 3.70-11.00 [facility] Comment on above: Order Comment: Speci men Type: BLOOD SPECIMENOrdering Facility: [facility] Address: [address] [place] [address] Performed By: #### 5 8410-2 ####[facility]ORATORYCLIA [id number] [address] [place] CONSULT PROGon 07-13-2021 CONSULT PROG Normal [facility] CONSULT PROG Normal [facility] CONSULT PROG Normal [facility] Magnesium SerPl-mCncon 07-13 Magnesium [Mass/Vol] 2.1 mg/dL Normal 1.7-2.3 [facility] Comment on above: Order Comment: Speci men Type: BLOOD SPECIMENOrdering Facility: [facility] Address: [address] [place] [address] Performed By: #### 1 9123-9, 2777-1, 62097-8 ####[facility]PITALCLIA [id number] [address] OF [facility] Phosphate SerPl-mCncon 07-13 Phosphate [Mass/Vol] 3.7 mg/dL Normal 2.7-4.8 [facility] Comment on above: Order Comment: Speccara feldman Type: BLOOD SPECIMENOrdering Facility: [facility] Address: [address] [place] [address] Performed By: #### 1 9123-9, 2777-1, 49984-5 ####[facility] HOSPITALCLIA [id number] [address] OF [facility] THERAPY NTon 07-13-2021 THERAPY NT Normal [facility] THERAPY NT Normal [facility] Vancomycin random [Mass/Vol] on 07-13-2021 Vancomycin [Mass/Vol] 31.7 ug/mL High 10.0-20.0 [facility] Comment on above: Order Comment: Speci francia Type: BLOOD SPECIMENOrdering Facility: [facility] Address: [address] [place] [address] Result Comment: Refe rence ranges and high/low indicator flags are provided as general guidelines only. The treating physician must determine appropriate target levels/dosing based on the specific clinical situation. Performed By: #### 4 091-5 ####[facility]ATORYCLIA [id number] [address] [place] aPTT PPPon 07-13-2021 aPTT Coag (PPP) [Time] 47.3 s High 23.0-32.4 [facility] Comment on above: Order Comment: Speci men Type: BLOOD SPECIMENOrdering Facility: [facility] Address: [address] [address] Performed By: #### 1 4979-9 ####[facility]ORATORYCLIA [id number] [address] aPTT Coag (PPP) [Time] 51.2 s High 23.0-32.4 [facility] Comment on above: Order Comment: Speci men Type: BLOOD SPECIMENOrdering Facility: [facility] Address: [address] [place] [address] Performed By: #### 1 4979-9 ####[facility]ATORYCLIA [id number] [address] aPTT Coag (PPP) [Time] 47.5 s High 23.0-32.4 [facility] Comment on above: Order Comment: Speci men Type: BLOOD SPECIMENOrdering Facility: [facility] Address: [address] [place] [address] Performed By: #### 1 4979-9 ####[facility]ORATORYCLIA [id number] [place] [address] [place] Basic metabolic 2000 panelon 07-12-2021 Anion gap [Moles/Vol] 7 mmol/L Low 9-18 [facility] Comment on above: Order Comment: Speci men Type: BLOOD SPECIMENOrdering Facility: [facility] Address: [address] [place] [address] Performed By: #### 1 9123-9, 2777-, 51540-5 ####[facility]ATORYCLIA [id number] [place] [address] [place] Calcium [Mass/Vol] 8.3 mg/dL Low 8.5-10.2 [facility] Comment on above: Order Comment: Speci men Type: BLOOD SPECIMENOrdering Facility: [facility] Address: [address] [place] [address] Performed By: #### 1 9123-9, 2777-, 35669-7 ####[facility]ATORYCLIA [id number] [address] [place] Chloride [Moles/Vol] 101 mmol/L Normal 97-105 [facility] Comment on above: Order Comment: Speci men Type: BLOOD SPECIMENOrdering Facility: [facility] Address: [address] [place] [address] Performed By: #### 1 9123-9, 2777-1, 78641-0 ####[facility]ATORYCLIA [id number] [address] [place] CO2 [Moles/Vol] 32 mmol/L High 22-30 [facility] Comment on above: Order Comment: Speci men Type: BLOOD SPECIMENOrdering Facility: [facility] Address: [address] [place] [address] Performed By: #### 1 9123-9, 2777-1, 13429-6 ####[facility]ATORYCLIA [id number] [address] OF [facility] Creatinine [Mass/Vol] 0.70 mg/dL Low 0.73-1.22 [facility] Comment on above: Order Comment: Speci men Type: BLOOD SPECIMENOrdering Facility: [facility] Address: [address] [place] [address] Performed By: #### 1 9123-9, 2777-1, 81755-0 ####[facility]ATORYCLIA [id number] [address] ESTIMATED GLOMERULAR FILTRATION RATE 100 mL/min/1.73m??? Normal >=60 [facility] Comment on above: Order Comment: Speci men Type: BLOOD SPECIMENOrdering Facility: [facility] Address: [address] [place] [address] Result Comment: Luzmaria mated Glomerular Filtration Rate [...] GFR. Performed By: #### 1 9123-9, 2777-, 66687-4 ####[facility] HOSPITALCLIA [id number] [place] [address] [place] Glucose [Mass/Vol] 104 mg/dL High 74-99 [facility] Comment on above: Order Comment: Shira feldman Type: BLOOD SPECIMENOrdering Facility: [facility] Address: [address] [place] [address] Result Comment: The [place] [employer] (ADA) provides guidance for cutoff [...] Standards of Medical Care in Diabetes 2016, [place] [employer]. Diabetes Care. 2016.39(Suppl 1). Performed By: #### 1 9123-9, 2777-, 41065-4 ####[facility] [id number] [place] [address] [place] Potassium [Moles/Vol] 3.7 mmol/L Normal 3.7-5.1 [facility] Comment on above: Order Comment: Shira feldman Type: BLOOD SPECIMENOrdering Facility: [facility] Address: [address] [id number] Performed By: #### 1 9123-9, 2777-, 41490-1 ####[facility] [id number] [place] [address] [place] Sodium [Moles/Vol] 140 mmol/L Normal 136-144 [facility] Comment on above: Order Comment: Shira feldman Type: BLOOD SPECIMENOrdering Facility: [facility] Address: [address] [address] Performed By: #### 1 9123-9, 2777-1, 37686-5 ####[facility]ORATORYCLIA [id number] [address] STATES [facility] Urea nitrogen [Mass/Vol] 12 mg/dL Normal 9-24 [facility] Comment on above: Order Comment: Speci men Type: BLOOD SPECIMENOrdering Facility: [facility] Address: [address] [place] [address] Performed By: #### 1 9123-9, 2777-1, 25957-3 ####[facility]ATORYCLIA [id number] [address] OF [facility] CBC panel Auto (Bld)on 07-12 Erythrocyte distribution width (RBC) [Ratio] 16.1 % High 11.5-15.0 [facility] Comment on above: Order Comment: Speci men Type: BLOOD SPECIMENOrdering Facility: [facility] Address: [address] [place] [address] Performed By: #### 5 8410-2 ####[facility]ATORYCLIA [id number] [address] [place] Hematocrit (Bld) [Volume fraction] 28.2 % Low 39.0-51.0 [facility] Comment on above: Order Comment: Speci men Type: BLOOD SPECIMENOrdering Facility: [facility] Address: [address] [place] [address] Performed By: #### 5 8410-2 ####[facility]ATORYCLIA [id number] [address] [place] Hemoglobin (Bld) [Mass/Vol] 8.5 g/dL Low 13.0-17.0 [facility] Comment on above: Order Comment: Speci men Type: BLOOD SPECIMENOrdering Facility: [facility] Address: [address] [place] [address] Performed By: #### 5 8410-2 ####[facility]ATORYCLIA [id number] [address] MCH (RBC) [Entitic mass] 26.8 pg Normal 26.0-34.0 [facility] Comment on above: Order Comment: Speci men Type: BLOOD SPECIMENOrdering Facility: [facility] Address: [address] [place] [address] Performed By: #### 5 8410-2 ####[facility]ATORYCLIA [id number] [address] STATES [facility] MCHC (RBC) [Mass/Vol] 30.1 g/dL Low 30.5-36.0 [facility] Comment on above: Order Comment: Speci men Type: BLOOD SPECIMENOrdering Facility: [facility] Address: [address] [place] [address] Performed By: #### 5 8410-2 ####[facility]ATORYCLIA [id number] [address] MCV (RBC) [Entitic vol] 89.0 fL Normal 80.0-100.0 [facility] Comment on above: Order Comment: Speci men Type: BLOOD SPECIMENOrdering Facility: [facility] Address: [address] [place] [address] Performed By: #### 5 8410-2 ####[facility]ORATORYCLIA [id number] [address] Nucleated RBC (Bld) [#/Vol] 10*3/uL Normal <0.01 [facility] Comment on above: Order Comment: Speci men Type: BLOOD SPECIMENOrdering Facility: [facility] Address: [address] [place] [address] Performed By: #### 5 8410-2 ####[facility]ATORYCLIA [id number] [address] Platelet mean volume (Bld) [Entitic vol] 9.6 fL Normal 9.0-12.7 [facility] Comment on above: Order Comment: Speci men Type: BLOOD SPECIMENOrdering Facility: [facility] Address: [address] [place] [address] Performed By: #### 5 8410-2 ####[facility]ORATORYCLIA [id number] [address] Platelets (Bld) [#/Vol] 340 10*3/uL Normal 150-400 [facility] Comment on above: Order Comment: Speci men Type: BLOOD SPECIMENOrdering Facility: [facility] Address: [address] [place] [address] Performed By: #### 5 8410-2 ####[facility]ATORYCLIA [id number] [address] RBC (Bld) [#/Vol] 3.17 10*6/uL Low 4.20-6.00 [facility] Comment on above: Order Comment: Speci men Type: BLOOD SPECIMENOrdering Facility: [facility] Address: [address] [place] [address] Performed By: #### 5 8410-2 ####[facility]ATORYCLIA [id number] [address] WBC (Bld) [#/Vol] 8.66 10*3/uL Normal 3.70-11.00 [facility] Comment on above: Order Comment: Speci men Type: BLOOD SPECIMENOrdering Facility: [facility] Address: [address] [place] [address] Performed By: #### 5 8410-2 ####[facility]ATORYCLIA [id number] [address] [place] CONSULTon 07-12-2021 CONSULT Normal [facility] CONSULT PROGon 07-12-2021 CONSULT PROG Normal [facility] Magnesium SerPl-mCncon 07-12 Magnesium [Mass/Vol] 2.1 mg/dL Normal 1.7-2.3 [facility] Comment on above: Order Comment: Speci men Type: BLOOD SPECIMENOrdering Facility: [facility] Address: [address] [place], [place] [id number] Performed By: #### 1 9123-9, 2777-1, 18794-3 ####[facility]ATORYCLIA [id number] [address] NURSING PROGon 07-12-2021 NURSING PROG Normal [facility] Phosphate SerPl-mCncon 07-12 Phosphate [Mass/Vol] 3.1 mg/dL Normal 2.7-4.8 [facility] Comment on above: Order Comment: Speci men Type: BLOOD SPECIMENOrdering Facility: [facility] Address: [address] [place] [address] Performed By: #### 1 9123-9, 2777-1, 94512-9 ####[facility]ATORYCLIA [id number] [address] THERAPY NTon 07-12-2021 THERAPY NT Normal [facility] aPTT PPPon 07-12-2021 aPTT Coag (PPP) [Time] 49.5 s High 23.0-32.4 [facility] Comment on above: Order Comment: Speci men Type: BLOOD SPECIMENOrdering Facility: [facility] Address: [address] [place] [address] Performed By: #### 1 4979-9 ####[facility]ATORYCLIA [id number] [address] aPTT Coag (PPP) [Time] 68.0 s High 23.0-32.4 [facility] Comment on above: Order Comment: Speci men Type: BLOOD SPECIMENOrdering Facility: [facility] Address: [address] [place] [address] Performed By: #### 1 4979-9 ####[facility]ATORYCLIA [id number] [address] aPTT Coag (PPP) [Time] 80.0 s High 23.0-32.4 [facility] Comment on above: Order Comment: Speci men Type: BLOOD SPECIMENOrdering Facility: [facility] Address: [address] [place] [address] Performed By: #### 1 4979-9 ####[facility]ORATORYCLIA [id number] [address] [place] CASE MGT INIT ASSESon 2021 CASE MGT INIT ASSES Normal [facility] CBC panel Auto (Bld)on 07-11 Erythrocyte distribution width (RBC) [Ratio] 16.3 % High 11.5-15.0 [facility] Comment on above: Order Comment: Speci men Type: BLOOD SPECIMENOrdering Facility: [facility] Address: [address] [place] [address] Performed By: #### 5 8410-2 ####[facility]ATORYCLIA [id number] [address] STATES [facility] Hematocrit (Bld) [Volume fraction] 28.3 % Low 39.0-51.0 [facility] Comment on above: Order Comment: Speci men Type: BLOOD SPECIMENOrdering Facility: [facility] Address: [address] [place] [address] Performed By: #### 5 8410-2 ####[facility]ATORYCLIA [id number] [address] STATES [facility] Hemoglobin (Bld) [Mass/Vol] 8.8 g/dL Low 13.0-17.0 [facility] Comment on above: Order Comment: Speci men Type: BLOOD SPECIMENOrdering Facility: [facility] Address: [address] [place] [address] Performed By: #### 5 8410-2 ####[facility]ATORYCLIA [id number] [address] MCH (RBC) [Entitic mass] 27.4 pg Normal 26.0-34.0 [facility] Comment on above: Order Comment: Speci men Type: BLOOD SPECIMENOrdering Facility: [facility] Address: [address] [place] [address] Performed By: #### 5 8410-2 ####[facility]ORATORYCLIA [id number] [address] STATES [facility] MCHC (RBC) [Mass/Vol] 31.1 g/dL Normal 30.5-36.0 [facility] Comment on above: Order Comment: Speci men Type: BLOOD SPECIMENOrdering Facility: [facility] Address: [address] [place] [address] Performed By: #### 5 8410-2 ####[facility]ATORYCLIA [id number] [address] [place] MCV (RBC) [Entitic vol] 88.2 fL Normal 80.0-100.0 [facility] Comment on above: Order Comment: Speci men Type: BLOOD SPECIMENOrdering Facility: [facility] Address: [address] [place] [address] Performed By: #### 5 8410-2 ####[facility]ATORYCLIA [id number] [address] [place] Nucleated RBC (Bld) [#/Vol] 10*3/uL Normal <0.01 [facility] Comment on above: Order Comment: Speci men Type: BLOOD SPECIMENOrdering Facility: [facility] Address: [address] [place] [address] Performed By: #### 5 8410-2 ####[facility]ATORYCLIA [id number] [address] [place] Platelet mean volume (Bld) [Entitic vol] 9.7 fL Normal 9.0-12.7 [facility] Comment on above: Order Comment: Speci men Type: BLOOD SPECIMENOrdering Facility: [facility] Address: [address] [place] [address] Performed By: #### 5 8410-2 ####[facility]ATORYCLIA [id number] [place] [address] [place] Platelets (Bld) [#/Vol] 315 10*3/uL Normal 150-400 [facility] Comment on above: Order Comment: Speci men Type: BLOOD SPECIMENOrdering Facility: [facility] Address: [address] [place] [address] Performed By: #### 5 8410-2 ####[facility]ATORYCLIA [id number] [address] STATES OF [facility] RBC (Bld) [#/Vol] 3.21 10*6/uL Low 4.20-6.00 [facility] Comment on above: Order Comment: Speci men Type: BLOOD SPECIMENOrdering Facility: [facility] Address: [address] [place] [address] Performed By: #### 5 8410-2 ####[facility]ATORYCLIA [id number] [address] WBC (Bld) [#/Vol] 9.18 10*3/uL Normal 3.70-11.00 [facility] Comment on above: Order Comment: Speci men Type: BLOOD SPECIMENOrdering Facility: [facility] Address: [address] [place] [address] Performed By: #### 5 8410-2 ####[facility]ATORYCLIA [id number] [address] CONSULT PROGon 07-11-2021 CONSULT PROG Normal [facility] CT BRAIN WO IVCONon 07-12-[address] BRAIN WO IVCON Normal [facility] Magnesium SerPl-mCncon 07-11 Magnesium [Mass/Vol] 2.1 mg/dL Normal 1.7-2.3 [facility] Comment on above: Order Comment: Speci men Type: BLOOD SPECIMENOrdering Facility: [facility] Address: [address] [place] [address] Performed By: #### 1 9123-9, 2777-1 ####[facility]ATORYCLIA [id number] [address] [place] NURSING PROGon 07-11-2021 NURSING PROG Normal [facility] NURSING PROG Normal [facility] Phosphate SerPl-mCncon 07-11 Phosphate [Mass/Vol] 3.4 mg/dL Normal 2.7-4.8 [facility] Comment on above: Order Comment: Speci men Type: BLOOD SPECIMENOrdering Facility: [facility] Address: [address] [place] [address] Performed By: #### 1 9123-9, 2777-1 ####[facility]ATORYCLIA [id number] [address] [place] THERAPY NTon 07-11-2021 THERAPY NT Normal [facility] Vancomycin random [Mass/Vol] on 07-11-2021 Vancomycin [Mass/Vol] 28.6 ug/mL High 10.0-20.0 [facility] Comment on above: Order Comment: Speci men Type: BLOOD SPECIMENOrdering Facility: [facility] Address: [address] [place] [address] Result Comment: Refe rence ranges and high/low indicator flags are provided as general guidelines only. The treating physician must determine appropriate target levels/dosing based on the specific clinical situation. Performed By: #### 4 091-5 ####[facility] LABORATORYCLIA [id number] [address] STATES OF [facility] aPTT PPPon 07-11-2021 aPTT Coag (PPP) [Time] 62.0 s High 23.0-32.4 [facility] Comment on above: Order Comment: Speci men Type: BLOOD SPECIMENOrdering Facility: [facility] Address: [address] [place] [address] Performed By: #### 1 4979-9 ####[facility] LABORATORYCLIA [id number] [address] aPTT Coag (PPP) [Time] 52.7 s High 23.0-32.4 [facility] Comment on above: Order Comment: Speci men Type: BLOOD SPECIMENOrdering Facility: [facility] Address: [address] [place] [address] Performed By: #### 1 4979-9 ####[facility] LABORATORYCLIA [id number] [address] STATES [facility] aPTT Coag (PPP) [Time] 29.9 s Normal 23.0-32.4 [facility] Comment on above: Order Comment: Speci men Type: BLOOD SPECIMENOrdering Facility: [facility] Address: [address] [place] [address] Performed By: #### 1 4979-9 ####[facility]ORATORYCLIA [id number] [address] OF [facility] Basic metabolic 2000 panelon 07-10-2021 Anion gap [Moles/Vol] 14 mmol/L Normal 9-18 [facility] Comment on above: Order Comment: Speci men Type: BLOOD SPECIMENOrdering Facility: [facility] Address: [address] [place] [address] Performed By: #### 1 9123-9, 2777-1, 85518-0 ####[facility]ITALCLIA [id number] [address] [place] Calcium [Mass/Vol] 8.5 mg/dL Normal 8.5-10.2 [facility] Comment on above: Order Comment: Speci men Type: BLOOD SPECIMENOrdering Facility: [facility] Address: [address] [place] [address] Performed By: #### 1 9123-9, 2777-1, 83580-7 ####[facility]ORATORYCLIA [id number] [address] STATES OF [facility] Chloride [Moles/Vol] 100 mmol/L Normal 97-105 [facility] Comment on above: Order Comment: Speci men Type: BLOOD SPECIMENOrdering Facility: [facility] Address: [address] [place] [address] Performed By: #### 1 9123-9, 2777-1, 75034-5 ####[facility]ORATORYCLIA [id number] [place] [address] [place] CO2 [Moles/Vol] 27 mmol/L Normal 22-30 [facility] Comment on above: Order Comment: Speci men Type: BLOOD SPECIMENOrdering Facility: [facility] Address: [address] [place] [address] Performed By: #### 1 9123-9, 2777-1, 51281-8 ####[facility]ATORYCLIA [id number] [address] [place] Creatinine [Mass/Vol] 0.66 mg/dL Low 0.73-1.22 [facility] Comment on above: Order Comment: Speci men Type: BLOOD SPECIMENOrdering Facility: [facility] Address: [address] [place] [address] Performed By: #### 1 9123-9, 27711-04, 91858-9 ####[facility]PITALCLIA [id number] [address] ESTIMATED GLOMERULAR FILTRATION RATE 102 mL/min/1.73m??? Normal >=60 [facility] Comment on above: Order Comment: Speci men Type: BLOOD SPECIMENOrdering Facility: [facility] Address: [address] [place] [address] Result Comment: Luzmaria mated Glomerular Filtration Rate [...] GFR. Performed By: #### 1 9123-9, 2777, 07290-1 ####[facility]ATORYCLIA [id number] [address] [place] Glucose [Mass/Vol] 93 mg/dL Normal 74-99 [facility] Comment on above: Order Comment: Speci men Type: BLOOD SPECIMENOrdering Facility: [facility] Address: [address] [place] [address] Result Comment: The [place] [employer] (ADA) provides guidance for cutoff [...] Standards of Medical Care in Diabetes 2016, [place] [employer]. Diabetes Care. 2016.39(Suppl 1). Performed By: #### 1 9123-9, 2777-, 00696-2 ####[facility]ORATORYCLIA [id number] [place] [address] [place] Potassium [Moles/Vol] 3.5 mmol/L Low 3.7-5.1 [facility] Comment on above: Order Comment: Speci men Type: BLOOD SPECIMENOrdering Facility: [facility] Address: [address] [address] Performed By: #### 1 9123-9, 2777-, 25326-9 ####[facility]ORATORYCLIA [id number] [place] [address] [place] Sodium [Moles/Vol] 141 mmol/L Normal 136-144 [facility] Comment on above: Order Comment: Speci men Type: BLOOD SPECIMENOrdering Facility: [facility] Address: [address] Performed By: #### 1 9123-9, 2777-, 12799-4 ####[facility]ORATORYCLIA [id number] [place] [address] [place] Urea nitrogen [Mass/Vol] 11 mg/dL Normal 9-24 [facility] Comment on above: Order Comment: Johni men Type: BLOOD SPECIMENOrdering Facility: [facility] Address: [address] Performed By: #### 1 9123-9, 2777-1, 19076-0 ####[facility]ORATORYCLIA [id number] [address] CBC panel Auto (Bld)on 07-10 Erythrocyte distribution width (RBC) [Ratio] 16.2 % High 11.5-15.0 [facility] Comment on above: Order Comment: Speci men Type: BLOOD SPECIMENOrdering Facility: [facility] Address: [address] [place] [address] Performed By: #### 5 8410-2 ####[facility]ORATORYCLIA [id number] [address] Hematocrit (Bld) [Volume fraction] 30.6 % Low 39.0-51.0 [facility] Comment on above: Order Comment: Speci men Type: BLOOD SPECIMENOrdering Facility: [facility] Address: [address] [place] [address] Performed By: #### 5 8410-2 ####[facility]ATORYCLIA [id number] [address] Hemoglobin (Bld) [Mass/Vol] 9.6 g/dL Low 13.0-17.0 [facility] Comment on above: Order Comment: Speci men Type: BLOOD SPECIMENOrdering Facility: [facility] Address: [address] [place] [address] Performed By: #### 5 8410-2 ####[facility]ATORYCLIA [id number] [address] MCH (RBC) [Entitic mass] 28.3 pg Normal 26.0-34.0 [facility] Comment on above: Order Comment: Speci men Type: BLOOD SPECIMENOrdering Facility: [facility] Address: [address] [place] [address] Performed By: #### 5 8410-2 ####[facility]ATORYCLIA [id number] [address] MCHC (RBC) [Mass/Vol] 31.4 g/dL Normal 30.5-36.0 [facility] Comment on above: Order Comment: Speci men Type: BLOOD SPECIMENOrdering Facility: [facility] Address: [address] [place] [address] Performed By: #### 5 8410-2 ####[facility]ORATORYCLIA [id number] [address] STATES OF [facility] MCV (RBC) [Entitic vol] 90.3 fL Normal 80.0-100.0 [facility] Comment on above: Order Comment: Speci men Type: BLOOD SPECIMENOrdering Facility: [facility] Address: [address] [place] [address] Performed By: #### 5 8410-2 ####[facility]ATORYCLIA [id number] [address] [place] Nucleated RBC (Bld) [#/Vol] 10*3/uL Normal <0.01 [facility] Comment on above: Order Comment: Speci men Type: BLOOD SPECIMENOrdering Facility: [facility] Address: [address] [place] [address] Performed By: #### 5 8410-2 ####[facility]ORATORYCLIA [id number] [address] [place] Platelet mean volume (Bld) [Entitic vol] 9.7 fL Normal 9.0-12.7 [facility] Comment on above: Order Comment: Speci men Type: BLOOD SPECIMENOrdering Facility: [facility] Address: [address] [place] [address] Performed By: #### 5 8410-2 ####[facility]ORATORYCLIA [id number] [address] [place] Platelets (Bld) [#/Vol] 306 10*3/uL Normal 150-400 [facility] Comment on above: Order Comment: Speci men Type: BLOOD SPECIMENOrdering Facility: [facility] Address: [address] [place] [address] Performed By: #### 5 8410-2 ####[facility]ATORYCLIA [id number] [address] RBC (Bld) [#/Vol] 3.39 10*6/uL Low 4.20-6.00 [facility] Comment on above: Order Comment: Speci men Type: BLOOD SPECIMENOrdering Facility: [facility] Address: [address] [place] [address] Performed By: #### 5 8410-2 ####[facility]ORATORYCLIA [id number] [address] WBC (Bld) [#/Vol] 9.81 10*3/uL Normal 3.70-11.00 [facility] Comment on above: Order Comment: Speci men Type: BLOOD SPECIMENOrdering Facility: [facility] Address: [address] [place] [address] Performed By: #### 5 8410-2 ####[facility]ORATORYCLIA [id number] [address] CONSULTon 07-10-2021 CONSULT Normal [facility] CONSULT Normal [facility] Magnesium SerPl-ncon 07-10 Magnesium [Mass/Vol] 1.9 mg/dL Normal 1.7-2.3 [facility] Comment on above: Order Comment: Speci men Type: BLOOD SPECIMENOrdering Facility: [facility] Address: [address] [place] [address] Performed By: #### 1 9123-9, 2777-1, 95101-8 ####[facility]ORATORYCLIA [id number] [address] NURSING PROGon 07-10-2021 NURSING PROG Normal [facility] NURSING PROG Normal [facility] NUTRITIONon 07-10-2021 NUTRITION Normal [facility] Phosphate SerPl-mCncon 07-10 Phosphate [Mass/Vol] 3.6 mg/dL Normal 2.7-4.8 [facility] Comment on above: Order Comment: Speci men Type: BLOOD SPECIMENOrdering Facility: [facility] Address: [address] [place] [address] Performed By: #### 1 9123-9, 2777-1, 65113-4 ####[facility]ATORYCLIA [id number] [place] [address] [place] US DVT LOWER BILon US DVT LOWER RAINER Normal [facility] aPTT PPPon 07-10-2021 aPTT Coag (PPP) [Time] 28.8 s Normal 23.0-32.4 [facility] Comment on above: Order Comment: Speci men Type: BLOOD SPECIMENOrdering Facility: [facility] Address: [address] [place] [address] Performed By: #### 1 4979-9 ####[facility]ATORYCLIA [id number] [address] OF [facility] aPTT Coag (PPP) [Time] 28.4 s Normal 23.0-32.4 [facility] Comment on above: Order Comment: Speci men Type: BLOOD SPECIMENOrdering Facility: [facility] Address: [address] [place] [address] Performed By: #### 1 4979-9 ####[facility]ATORYCLIA [id number] [place] [address] [place] ALLIED HEALTHon 07-09-2021 ALLIED HEALTH Normal [facility] Basic metabolic 2000 panelon 07-09-2021 Anion gap [Moles/Vol] 9 mmol/L Normal 9-18 [facility] Comment on above: Order Comment: Speci men Type: BLOOD SPECIMENOrdering Facility: [facility] Address: [address] [place] [address] Performed By: #### 1 9123-9, 2777-1, 68233-1 ####[facility]ATORYCLIA [id number] [place] [address] [place] Calcium [Mass/Vol] 8.3 mg/dL Low 8.5-10.2 [facility] Comment on above: Order Comment: Speci men Type: BLOOD SPECIMENOrdering Facility: [facility] Address: [address] [place] [address] Performed By: #### 1 9123-9, 2776-05, 80806-6 ####[facility]ATORYCLIA [id number] [place] [address] [place] Chloride [Moles/Vol] 100 mmol/L Normal 97-105 [facility] Comment on above: Order Comment: Speci men Type: BLOOD SPECIMENOrdering Facility: [facility] Address: [address] [place] [address] Performed By: #### 1 9123-9, 27711-04, 53219-7 ####[facility]ATORYCLIA [id number] [address] [place] CO2 [Moles/Vol] 29 mmol/L Normal 22-30 [facility] Comment on above: Order Comment: Speci men Type: BLOOD SPECIMENOrdering Facility: [facility] Address: [address] [place] [address] Performed By: #### 1 9123-9, 2776-05, ####[facility]ATORYCLIA [id number] [address] STATES OF [facility] Creatinine [Mass/Vol] 0.61 mg/dL Low 0.73-1.22 [facility] Comment on above: Order Comment: Speci men Type: BLOOD SPECIMENOrdering Facility: [facility] Address: [address] [place] [address] Performed By: #### 1 9123-9, 27711-04, 59770-8 ####[facility]ATORYCLIA [id number] [address] ESTIMATED GLOMERULAR FILTRATION RATE 104 mL/min/1.73m??? Normal >=60 [facility] Comment on above: Order Comment: Speci men Type: BLOOD SPECIMENOrdering Facility: [facility] Address: [address] [place], [place] [id number] Result Comment: Luzmaria mated Glomerular Filtration Rate [...] GFR. Performed By: #### 1 9123-9, 2777-, 14114-3 ####[facility]IA [id number] [place] [address] [place] Glucose [Mass/Vol] 106 mg/dL High 74-99 [facility] Comment on above: Order Comment: Shira feldman Type: BLOOD SPECIMENOrdering Facility: [facility] Address: [address] [address] Result Comment: The [place] [employer] (ADA) provides guidance for cutoff [...] Standards of Medical Care in Diabetes 2016, [place] [employer]. Diabetes Care. 2016.39(Suppl 1). Performed By: #### 1 9123-9, 2777-, 76976-3 ####[facility] LABORATORYIA [id number] [place] [address] [place] Potassium [Moles/Vol] 3.6 mmol/L Low 3.7-5.1 [facility] Comment on above: Order Comment: Shira feldman Type: BLOOD SPECIMENOrdering Facility: [facility] Address: [address] [id number] Performed By: #### 1 9123-9, 2777-, 02889-9 ####[facility]ORATORYCLIA [id number] [address] STATES [facility] Sodium [Moles/Vol] 138 mmol/L Normal 136-144 [facility] Comment on above: Order Comment: Speci men Type: BLOOD SPECIMENOrdering Facility: [facility] Address: [address] [place] [address] Performed By: #### 1 9123-9, 2777-1, 65507-7 ####[facility]ATORYCLIA [id number] [address] STATES [facility] Urea nitrogen [Mass/Vol] 12 mg/dL Normal 9-24 [facility] Comment on above: Order Comment: Speci men Type: BLOOD SPECIMENOrdering Facility: [facility] Address: [address] [place] [address] Performed By: #### 1 9123-9, 2777-, 00827-8 ####[facility]ATORYCLIA [id number] [address] CBC panel Auto (Bld)on 07-09 Erythrocyte distribution width (RBC) [Ratio] 16.2 % High 11.5-15.0 [facility] Comment on above: Order Comment: Speci men Type: BLOOD SPECIMENOrdering Facility: [facility] Address: [address] [place] [address] Performed By: #### 5 8410-2 ####[facility]ORATORYCLIA [id number] [address] STATES [facility] Hematocrit (Bld) [Volume fraction] 29.0 % Low 39.0-51.0 [facility] Comment on above: Order Comment: Speci men Type: BLOOD SPECIMENOrdering Facility: [facility] Address: [address] [place] [address] Performed By: #### 5 8410-2 ####[facility]ATORYCLIA [id number] [address] Hemoglobin (Bld) [Mass/Vol] 8.8 g/dL Low 13.0-17.0 [facility] Comment on above: Order Comment: Speci men Type: BLOOD SPECIMENOrdering Facility: [facility] Address: [address] [place] [address] Performed By: #### 5 8410-2 ####[facility]ATORYCLIA [id number] [address] MCH (RBC) [Entitic mass] 27.0 pg Normal 26.0-34.0 [facility] Comment on above: Order Comment: Speci men Type: BLOOD SPECIMENOrdering Facility: [facility] Address: [address] [place] [address] Performed By: #### 5 8410-2 ####[facility]ATORYCLIA [id number] [address] MCHC (RBC) [Mass/Vol] 30.3 g/dL Low 30.5-36.0 [facility] Comment on above: Order Comment: Speci men Type: BLOOD SPECIMENOrdering Facility: [facility] Address: [address] [place] [address] Performed By: #### 5 8410-2 ####[facility]ATORYCLIA [id number] [address] MCV (RBC) [Entitic vol] 89.0 fL Normal 80.0-100.0 [facility] Comment on above: Order Comment: Speci men Type: BLOOD SPECIMENOrdering Facility: [facility] Address: [address] [place] [address] Performed By: #### 5 8410-2 ####[facility]ATORYCLIA [id number] [address] Nucleated RBC (Bld) [#/Vol] 10*3/uL Normal <0.01 [facility] Comment on above: Order Comment: Speci men Type: BLOOD SPECIMENOrdering Facility: [facility] Address: [address] [place] [address] Performed By: #### 5 8410-2 ####[facility]ATORYCLIA [id number] [address] [place] Platelet mean volume (Bld) [Entitic vol] 9.8 fL Normal 9.0-12.7 [facility] Comment on above: Order Comment: Speci men Type: BLOOD SPECIMENOrdering Facility: [facility] Address: [address] [place] [address] Performed By: #### 5 8410-2 ####[facility]ATORYCLIA [id number] [place] [address] [place] Platelets (Bld) [#/Vol] 281 10*3/uL Normal 150-400 [facility] Comment on above: Order Comment: Speci men Type: BLOOD SPECIMENOrdering Facility: [facility] Address: [address] [place] [address] Performed By: #### 5 8410-2 ####[facility]ATORYCLIA [id number] [place] [address] [place] RBC (Bld) [#/Vol] 3.26 10*6/uL Low 4.20-6.00 [facility] Comment on above: Order Comment: Speci men Type: BLOOD SPECIMENOrdering Facility: [facility] Address: [address] [place] [address] Performed By: #### 5 8410-2 ####[facility]ATORYCLIA [id number] [place] [address] [place] WBC (Bld) [#/Vol] 9.12 10*3/uL Normal 3.70-11.00 [facility] Comment on above: Order Comment: Speci men Type: BLOOD SPECIMENOrdering Facility: [facility] Address: [address] [place] [address] Performed By: #### 5 8410-2 ####[facility]ORATORYCLIA [id number] [address] [place] CONSULT PROGon 07-09-2021 CONSULT PROG Normal [facility] CONSULT PROG Normal [facility] HISTORY PHYSICALon HISTORY PHYSICAL Normal [facility] Magnesium SerPl-mCncon 07-09 Magnesium [Mass/Vol] 1.9 mg/dL Normal 1.7-2.3 [facility] Comment on above: Order Comment: Speci men Type: BLOOD SPECIMENOrdering Facility: [facility] Address: [address] [place] [address] Performed By: #### 1 9123-9, 2777-1, 96639-7 ####[facility]ATORYCLIA [id number] [place] [address] [place] Phosphate SerPl-mCncon 07-09 Phosphate [Mass/Vol] 3.6 mg/dL Normal 2.7-4.8 [facility] Comment on above: Order Comment: Speci men Type: BLOOD SPECIMENOrdering Facility: [facility] Address: [address] [place] [address] Performed By: #### 1 9123-9, 2777-1, 35166-5 ####[facility]ORATORYCLIA [id number] [address] STATES OF [facility] THERAPY NTon 07-09-2021 THERAPY NT Normal [facility] XR ABDOMEN 1V SUPINEon 07-09 XR ABDOMEN 1V SUPINE Normal [facility] ALLIED HEALTHon 07-08-2021 ALLIED HEALTH Normal [facility] ALLIED HEALTH Normal [facility] ALLIED HEALTH Normal [facility] ANES PRE-OPon 07-08-2021 ANES PRE-OP Normal [facility] BRIEF OP NOTon 07-08-2021 BRIEF OP NOT Normal [facility] Bacteria Bld Culton 07-09-19 22 Bacteria identified Cx Nom (Bld) CULTURE, BLOOD: No growth 5 days Normal [facility] Comment on above: Performed By: #### 6 00-7 ####[facility]ATORYCLIA [id number] [address] [place] Bacteria identified Cx Nom (Bld) CULTURE, BLOOD: No growth 5 days Normal [facility] Comment on above: Performed By: #### 6 00-7 ####[facility]ATORYCLIA [id number] [address] Bacteria CSF Culton 07-09-19 22 Bacteria identified Cx Nom (CSF) CULTURE, CSF: No growth 14 days GRAM STAIN: No organisms seen No Polymorphonuclear Leukocytes Few Red Blood Cells Gram stain performed on cytospun specimen. [facility] Comment on above: Performed By: #### 6 06-4 ####[facility]ATORYCLIA [id number] [address] Bacteria Ur Culton 2 Bacteria identified Cx Nom (U) ORGANISM ID: 1 10,000 -<50,000 CFU/ml Proteus species Insignificant colony count. No further workup. ORGANISM ID: 2 <10,000 CFU/ml Normal urogenital chris [facility] Comment on above: Performed By: #### 6 30-4 ####[facility]ATORYCLIA [id number] [address] Bacteria Wnd Culton 07-09-19 22 Bacteria identified Cx Nom (Wound) ORGANISM ID: 1 Coagulase negative staphylococcus Growth in Enrichment Broth Only No susceptibility testing done. Call lab within 72 hours to initiate work-up if clinically indicated. GRAM STAIN: Account credited. Not performed on this specimen type. [facility] Comment on above: Performed By: #### 6 462-6 ####[facility]ATORYCLIA [id number] [address] Bacteria identified Cx Nom (Wound) ORGANISM ID: 1 Rare Coagulase negative staphylococcus No susceptibility testing done. Call lab within 72 hours to initiate work-up if clinically indicated. GRAM STAIN: Account credited. Not performed on this specimen type. [facility] Comment on above: Performed By: #### 6 462-6 ####[facility]ATORYCLIA [id number] [address] Bacteria identified Cx Nom (Wound) CULTURE, INTRAOPERATIVE HARDWARE: No growth 14 days GRAM STAIN: Account credited. Not performed on this specimen type. [facility] Comment on above: Performed By: #### 6 462-6 ####[facility]ATORYCLIA [id number] [address] [place] Basic metabolic 2000 panelon 07-08-2021 Anion gap [Moles/Vol] 9 mmol/L Normal 9-18 [facility] Comment on above: Order Comment: Speci men Type: BLOOD SPECIMENOrdering Facility: [facility] Address: [address] [place] [address] Performed By: #### 2 4321-2 ####[facility]ATORYCLIA [id number] [place] [address] [place] Calcium [Mass/Vol] 8.5 mg/dL Normal 8.5-10.2 [facility] Comment on above: Order Comment: Speci men Type: BLOOD SPECIMENOrdering Facility: [facility] Address: [address] [place] [address] Performed By: #### 2 4321-2 ####[facility]ORATORYCLIA [id number] [place] [address] [place] Chloride [Moles/Vol] 98 mmol/L Normal 97-105 [facility] Comment on above: Order Comment: Speci men Type: BLOOD SPECIMENOrdering Facility: [facility] Address: [address] [place] [address] Performed By: #### 2 4321-2 ####[facility]ATORYCLIA [id number] [place] [address] [place] CO2 [Moles/Vol] 31 mmol/L High 22-30 [facility] Comment on above: Order Comment: Speci men Type: BLOOD SPECIMENOrdering Facility: [facility] Address: [address] [place] [address] Performed By: #### 2 4321-2 ####[facility]ATORYCLIA [id number] [place] [address] [place] Creatinine [Mass/Vol] 0.64 mg/dL Low 0.73-1.22 [facility] Comment on above: Order Comment: Shira feldman Type: BLOOD SPECIMENOrdering Facility: [facility] Address: [address] [place] [address] Performed By: #### 2 4321-2 ####[facility]ORATORYCLIA [id number] [address] [place] ESTIMATED GLOMERULAR FILTRATION RATE 102 mL/min/1.73m??? Normal >=60 [facility] Comment on above: Order Comment: Shira feldman Type: BLOOD SPECIMENOrdering Facility: [facility] Address: [address] [place] [address] Result Comment: Luzmaria mated Glomerular Filtration Rate [...] actual GFR. Performed By: #### 2 4321-2 ####[facility] LABORATORYIA [id number] [place] [address] [place] Glucose [Mass/Vol] 114 mg/dL High 74-99 [facility] Comment on above: Order Comment: Shira feldman Type: BLOOD SPECIMENOrdering Facility: [facility] Address: [address] [place] [address] Result Comment: The [place] Diabetes Association (ADA) provides guidance for cutoff [...] Standards of Medical Care in Diabetes 2016, [place] [employer]. Diabetes Care. 2016.39(Suppl 1). Performed By: #### 2 4321-2 ####[facility]ORATORYCLIA [id number] [place] [address] [place] Potassium [Moles/Vol] 3.4 mmol/L Low 3.7-5.1 [facility] Comment on above: Order Comment: Speci men Type: BLOOD SPECIMENOrdering Facility: [facility] Address: [address] [place] [address] Performed By: #### 2 4321-2 ####[facility]ORATORYCLIA [id number] [place] [address] [place] Sodium [Moles/Vol] 138 mmol/L Normal 136-144 [facility] Comment on above: Order Comment: Speci men Type: BLOOD SPECIMENOrdering Facility: [facility] Address: [address] [place] [address] Performed By: #### 2 4321-2 ####[facility]ORATORYCLIA [id number] [address] STATES [facility] Urea nitrogen [Mass/Vol] 14 mg/dL Normal 9-24 [facility] Comment on above: Order Comment: Speci men Type: BLOOD SPECIMENOrdering Facility: [facility] Address: [address] [place] [address] Performed By: #### 2 4321-2 ####[facility]ATORYCLIA [id number] [address] [place] CBC W Auto Differential pane l (Bld)on 07-08-2021 Basophils (Bld) [#/Vol] 0.05 10*3/uL Normal <0.11 [facility] Comment on above: Order Comment: Speci men Type: BLOOD SPECIMENOrdering Facility: [facility] Address: [address] [place] [address] Performed By: #### 5 7021-8 ####[facility]ORATORYCLIA [id number] [address] [place] Basophils/100 WBC (Bld) 0.4 % Normal [facility] Comment on above: Order Comment: Speci men Type: BLOOD SPECIMENOrdering Facility: [facility] Address: [address] [place] [address] Performed By: #### 5 7021-8 ####[facility]ORATORYCLIA [id number] [address] Differential cell count method Nom (Bld) Auto Normal [facility] Comment on above: Order Comment: Speci men Type: BLOOD SPECIMENOrdering Facility: [facility] Address: [address] [place] [address] Performed By: #### 5 7021-8 ####[facility]ATORYCLIA [id number] [address] Eosinophils (Bld) [#/Vol] 0.68 10*3/uL High <0.46 [facility] Comment on above: Order Comment: Speci men Type: BLOOD SPECIMENOrdering Facility: [facility] Address: [address] [place] [address] Performed By: #### 5 7021-8 ####[facility]ORATORYCLIA [id number] [address] Eosinophils/100 WBC (Bld) 5.4 % Normal [facility] Comment on above: Order Comment: Speci men Type: BLOOD SPECIMENOrdering Facility: [facility] Address: [address] [place] [address] Performed By: #### 5 7021-8 ####[facility]ATORYCLIA [id number] [address] [place] Erythrocyte distribution width (RBC) [Ratio] 16.3 % High 11.5-15.0 [facility] Comment on above: Order Comment: Speci men Type: BLOOD SPECIMENOrdering Facility: [facility] Address: [address] [place] [address] Performed By: #### 5 7021-8 ####[facility]ATORYCLIA [id number] [address] [place] Hematocrit (Bld) [Volume fraction] 35.7 % Low 39.0-51.0 [facility] Comment on above: Order Comment: Speci men Type: BLOOD SPECIMENOrdering Facility: [facility] Address: [address] [place] [address] Performed By: #### 5 7021-8 ####[facility]ATORYCLIA [id number] [address] STATES OF [facility] Hemoglobin (Bld) [Mass/Vol] 10.8 g/dL Low 13.0-17.0 [facility] Comment on above: Order Comment: Speci men Type: BLOOD SPECIMENOrdering Facility: [facility] Address: [address] [place] [address] Performed By: #### 5 7021-8 ####[facility]ATORYCLIA [id number] [address] IMMATURE GRAN % 0.4 % Normal [facility] Comment on above: Order Comment: Speci men Type: BLOOD SPECIMENOrdering Facility: [facility] Address: [address] [place] [address] Performed By: #### 5 7021-8 ####[facility]ATORYCLIA [id number] [address] IMMATURE GRAN ABS 0.05 k/uL Normal <0.10 [facility] Comment on above: Order Comment: Speci men Type: BLOOD SPECIMENOrdering Facility: [facility] Address: [address] [place] [address] Performed By: #### 5 7021-8 ####[facility]ATORYCLIA [id number] [address] [place] Lymphocytes (Bld) [#/Vol] 1.85 10*3/uL Normal 1.00-4.00 [facility] Comment on above: Order Comment: Speci men Type: BLOOD SPECIMENOrdering Facility: [facility] Address: [address] [place] [address] Performed By: #### 5 7021-8 ####[facility]ATORYCLIA [id number] [address] Lymphocytes/100 WBC (Bld) 14.7 % Normal [facility] Comment on above: Order Comment: Speci men Type: BLOOD SPECIMENOrdering Facility: [facility] Address: [address] [place] [address] Performed By: #### 5 7021-8 ####[facility]ATORYCLIA [id number] [address] MCH (RBC) [Entitic mass] 27.1 pg Normal 26.0-34.0 [facility] Comment on above: Order Comment: Speci men Type: BLOOD SPECIMENOrdering Facility: [facility] Address: [address] [place] [address] Performed By: #### 5 7021-8 ####[facility]ATORYCLIA [id number] [address] STATES OF [facility] MCHC (RBC) [Mass/Vol] 30.3 g/dL Low 30.5-36.0 [facility] Comment on above: Order Comment: Speci men Type: BLOOD SPECIMENOrdering Facility: [facility] Address: [address] [place] [address] Performed By: #### 5 7021-8 ####[facility]ATORYCLIA [id number] [address] [place] MCV (RBC) [Entitic vol] 89.7 fL Normal 80.0-100.0 [facility] Comment on above: Order Comment: Speci men Type: BLOOD SPECIMENOrdering Facility: [facility] Address: [address] [place] [address] Performed By: #### 5 7021-8 ####[facility]ATORYCLIA [id number] [address] Monocytes (Bld) [#/Vol] 0.87 10*3/uL High <0.87 [facility] Comment on above: Order Comment: Speci men Type: BLOOD SPECIMENOrdering Facility: [facility] Address: [address] [address] Performed By: #### 5 7021-8 ####[facility]ATORYCLIA [id number] [address] [place] Monocytes/100 WBC (Bld) 6.9 % Normal [facility] Comment on above: Order Comment: Speci men Type: BLOOD SPECIMENOrdering Facility: [facility] Address: [address] [place] [address] Performed By: #### 5 7021-8 ####[facility]ATORYCLIA [id number] [address] [place] Neutrophils (Bld) [#/Vol] 9.05 10*3/uL High 1.45-7.50 [facility] Comment on above: Order Comment: Speci men Type: BLOOD SPECIMENOrdering Facility: [facility] Address: [address] [place] [address] Performed By: #### 5 7021-8 ####[facility]ATORYCLIA [id number] [address] STATES [facility] Neutrophils/100 WBC (Bld) 72.2 % Normal [facility] Comment on above: Order Comment: Speci men Type: BLOOD SPECIMENOrdering Facility: [facility] Address: [address] [place] [address] Performed By: #### 5 7021-8 ####[facility]ATORYCLIA [id number] [place] [address] [place] Nucleated RBC (Bld) [#/Vol] 10*3/uL Normal <0.01 [facility] Comment on above: Order Comment: Speci men Type: BLOOD SPECIMENOrdering Facility: [facility] Address: [address] [place] [address] Performed By: #### 5 7021-8 ####[facility]ATORYCLIA [id number] [address] [place] Nucleated RBC/100 WBC (Bld) [Ratio] 0.0 /100 WBC Normal [facility] Comment on above: Order Comment: Speci men Type: BLOOD SPECIMENOrdering Facility: [facility] Address: [address] [place] [address] Performed By: #### 5 7021-8 ####[facility]ATORYCLIA [id number] [address] [place] Platelet mean volume (Bld) [Entitic vol] 9.9 fL Normal 9.0-12.7 [facility] Comment on above: Order Comment: Speci men Type: BLOOD SPECIMENOrdering Facility: [facility] Address: [address] [place], [place] [address] Performed By: #### 5 7021-8 ####[facility]ATORYCLIA [id number] [address] [place] Platelets (Bld) [#/Vol] 335 10*3/uL Normal 150-400 [facility] Comment on above: Order Comment: Speci men Type: BLOOD SPECIMENOrdering Facility: [facility] Address: [address] [place] [address] Performed By: #### 5 7021-8 ####[facility]ATORYCLIA [id number] [place] [address] [place] RBC (Bld) [#/Vol] 3.98 10*6/uL Low 4.20-6.00 [facility] Comment on above: Order Comment: Speci men Type: BLOOD SPECIMENOrdering Facility: [facility] Address: [address] [place], [place] [address] Performed By: #### 5 7021-8 ####[facility]ATORYCLIA [id number] [place] [address] [place] WBC (Bld) [#/Vol] 12.55 10*3/uL High 3.70-11.00 [facility] Comment on above: Order Comment: Speci men Type: BLOOD SPECIMENOrdering Facility: [facility] Address: [address] [place] [address] Performed By: #### 5 7021-8 ####[facility]ATORYCLIA [id number] [place] [address] [place] CK CREATINE KINASEon CK [Catalytic activity/Vol] 72 U/L Normal 51-298 [facility] Comment on above: Order Comment: Speci men Type: BLOOD SPECIMENOrdering Facility: [facility] Address: [address] [place] [address] Performed By: #### C Skip, 89818-9 ####[facility]ORATORYCLIA [id number] [place] [address] [place] CONSULT PROGon 07-08-2021 CONSULT PROG Normal [facility] CONSULT PROG Normal [facility] CSF MANUAL DIFFon 07-08-2021 DIF TTL, CSF 3 cells counted Normal [facility] Comment on above: Order Comment: Speci men Type: CEREBROSPINAL FLUIDOrdering Facility: [facility] Address: [address] [place] [address] Performed By: #### 3 4563-7, [id number] ####[facility]ORATORYCLIA [id number] [place] [address] [place] LYMPH%, CSF 33 % Low 50-90 [facility] Comment on above: Order Comment: Speci men Type: CEREBROSPINAL FLUIDOrdering Facility: [facility] Address: [address] [place] [address] Performed By: #### 3 4563-7, [id number] ####[facility]ORATORYCLIA [id number] [place] [address] [place] MONO%, CSF 67 % High 10-50 [facility] Comment on above: Order Comment: Speci men Type: CEREBROSPINAL FLUIDOrdering Facility: [facility] Address: [address] [place] [address] Performed By: #### 3 4563-7, [id number] ####[facility]ORATORYCLIA [id number] [place] [address] [place] [address] ABD/PEL W IVCONon 022 CT ABD/PEL W IVCON Normal [facility] CT BRAIN WO IVCONon 07-09-19 CT BRAIN WO IVCON Normal [facility] CT BRAIN WO IVCON Normal [facility] CT CHEST W IVCON PEon 2021 CT CHEST W IVCON PE Normal [facility] Cell count panel (CSF)on Clarity (CSF) Clear Normal Clear [facility] Comment on above: Order Comment: Speci men Type: CEREBROSPINAL FLUIDOrdering Facility: [facility] Address: [address] [place] [address] Performed By: #### 3 4563-7, [id number] ####[facility]ATORYCLIA [id number] [address] [place] Clarity (Unsp spec) Clear Normal Clear [facility] Comment on above: Order Comment: Speci men Type: CEREBROSPINAL FLUIDOrdering Facility: [facility] Address: [address] [place] [address] Performed By: #### 3 4563-7, [id number] ####[facility]ATORYCLIA [id number] [address] [place] Color (CSF) Colorless Normal Colorless [facility] Comment on above: Order Comment: Speci men Type: CEREBROSPINAL FLUIDOrdering Facility: [facility] Address: [address] [place] [address] Performed By: #### 3 4563-7, [id number] ####[facility]ATORYCLIA [id number] [place] [address] [place] Color (Spun CSF) Colorless Normal Colorless [facility] Comment on above: Order Comment: Speci men Type: CEREBROSPINAL FLUIDOrdering Facility: [facility] Address: [address] [place] [address] Performed By: #### 3 4563-7, [id number] ####[facility]ATORYCLIA [id number] [place] [address] [place] CSF TUBE NUMBER [employer] Normal [facility] Comment on above: Order Comment: Speci men Type: CEREBROSPINAL FLUIDOrdering Facility: [facility] Address: [address] [place] [address] Performed By: #### 3 4563-7, [id number] ####[facility]ATORYCLIA [id number] [address] RBC Manual cnt (CSF) [#/Vol] 94 cells/uL High 0-5 [facility] Comment on above: Order Comment: Speci men Type: CEREBROSPINAL FLUIDOrdering Facility: [facility] Address: [address] [place] [address] Performed By: #### 3 4563-7, [id number] ####[facility]ATORYCLIA [id number] [address] WBC Manual cnt (CSF) [#/Vol] 1 cells/uL Normal 0-5 [facility] Comment on above: Order Comment: Speci men Type: CEREBROSPINAL FLUIDOrdering Facility: [facility] Address: [address] [place] [address] Performed By: #### 3 4563-7, [id number] ####[facility]ORATORYCLIA [id number] [address] Comprehensive metabolic 2000 panelon 07-08-2021 Albumin [Mass/Vol] 3.6 g/dL Low 3.9-4.9 [facility] Comment on above: Order Comment: Speci men Type: BLOOD SPECIMENOrdering Facility: [facility] Address: [address] [place] [address] Performed By: #### Eileen Valdivia, 86009-7 ####[facility]ORATORYCLIA [id number] [address] ALP [Catalytic activity/Vol] 125 U/L High 38-113 [facility] Comment on above: Order Comment: Speci men Type: BLOOD SPECIMENOrdering Facility: [facility] Address: [address] [place] [address] Performed By: #### Eileen Valdivia, 95545-5 ####[facility]ATORYCLIA [id number] [address] STATES OF [facility] ALT With P-5'-P [Catalytic activity/Vol] 24 U/L Normal 10-54 [facility] Comment on above: Order Comment: Speci men Type: BLOOD SPECIMENOrdering Facility: [facility] Address: [address] [place] [address] Performed By: #### Eileen Valdivia, 05133-2 ####[facility]ATORYCLIA [id number] [address] STATES OF [facility] Anion gap [Moles/Vol] 16 mmol/L Normal 9-18 [facility] Comment on above: Order Comment: Speci men Type: BLOOD SPECIMENOrdering Facility: [facility] Address: [address] [place] [address] Performed By: #### Eileen Valdivia, 34535-0 ####[facility]ATORYCLIA [id number] [address] [place] AST With P-5'-P [Catalytic activity/Vol] 21 U/L Normal 14-40 [facility] Comment on above: Order Comment: Speci men Type: BLOOD SPECIMENOrdering Facility: [facility] Address: [address] [place] [address] Performed By: #### Eileen Valdivia, 79266-3 ####[facility]ATORYCLIA [id number] [address] [place] Bilirubin [Mass/Vol] 0.3 mg/dL Normal 0.2-1.3 [facility] Comment on above: Order Comment: Speci men Type: BLOOD SPECIMENOrdering Facility: [facility] Address: [address] [place] [address] Performed By: #### Eileen Valdivia, 70113-3 ####[facility]ATORYCLIA [id number] [address] [place] Calcium [Mass/Vol] 8.9 mg/dL Normal 8.5-10.2 [facility] Comment on above: Order Comment: Speci men Type: BLOOD SPECIMENOrdering Facility: [facility] Address: [address] [address] Performed By: #### C K, 39376-5 ####[facility]ORATORYCLIA [id number] [address] OF [facility] Chloride [Moles/Vol] 96 mmol/L Low 97-105 [facility] Comment on above: Order Comment: Speci men Type: BLOOD SPECIMENOrdering Facility: [facility] Address: [address] [place] [address] Performed By: #### C Skip, 18226-5 ####[facility]ATORYCLIA [id number] [address] CO2 [Moles/Vol] 27 mmol/L Normal 22-30 [facility] Comment on above: Order Comment: Speci men Type: BLOOD SPECIMENOrdering Facility: [facility] Address: [address] [place] [address] Performed By: #### Eileen Valdivia, 62329-7 ####[facility]ATORYCLIA [id number] [address] Creatinine [Mass/Vol] 0.68 mg/dL Low 0.73-1.22 [facility] Comment on above: Order Comment: Speci men Type: BLOOD SPECIMENOrdering Facility: [facility] Address: [address] [place] [address] Performed By: #### C Skip, 88957-3 ####[facility]ATORYCLIA [id number] [address] ESTIMATED GLOMERULAR FILTRATION RATE 101 mL/min/1.73m??? Normal >=60 [facility] Comment on above: Order Comment: Speci men Type: BLOOD SPECIMENOrdering Facility: [facility] Address: [address] [place] [address] Result Comment: Luzmaria mated Glomerular Filtration Rate [...] actual GFR. Performed By: #### Eileen Valdivia, 16111-4 ####[facility]ATORYCLIA [id number] [place] [address] [place] Glucose [Mass/Vol] 130 mg/dL High 74-99 [facility] Comment on above: Order Comment: Shira feldman Type: BLOOD SPECIMENOrdering Facility: [facility] Address: [address] [place] [address] Result Comment: The [place] [employer] (ADA) provides guidance for cutoff [...] Standards of Medical Care in Diabetes 2016, [place] [employer]. Diabetes Care. 2016.39(Suppl 1). Performed By: #### Eileen Valdivia, 51360-1 ####[facility]ATORYCLIA [id number] [place] [address] [place] Potassium [Moles/Vol] 3.9 mmol/L Normal 3.7-5.1 [facility] Comment on above: Order Comment: Shira feldman Type: BLOOD SPECIMENOrdering Facility: [facility] Address: [address] [id number] Performed By: #### Eileen Vadlivia, 23858-6 ####[facility]ATORYCLIA [id number] [place] [address] [place] Protein [Mass/Vol] 7.0 g/dL Normal 6.3-8.0 [facility] Comment on above: Order Comment: Shira feldman Type: BLOOD SPECIMENOrdering Facility: [facility] Address: [address] [address] Performed By: #### Eileen Valdivia, 40212-2 ####[facility]ATORYCLIA [id number] [address] Sodium [Moles/Vol] 139 mmol/L Normal 136-144 [facility] Comment on above: Order Comment: Speci men Type: BLOOD SPECIMENOrdering Facility: [facility] Address: [address] [place] [address] Performed By: #### Eileen Valdivia, 99818-5 ####[facility]ATORYCLIA [id number] [address] [place] Urea nitrogen [Mass/Vol] 16 mg/dL Normal 9-24 [facility] Comment on above: Order Comment: Speci men Type: BLOOD SPECIMENOrdering Facility: [facility] Address: [address] [place] [address] Performed By: #### Eileen Valdivia, 92265-2 ####[facility]ATORYCLIA [id number] [address] OF [facility] ED NOTEon 07-08-2021 ED NOTE HNO ID: [id number] Author: Lenora James RN Service: Emergency Medicine Author Type: Registered Nurse Type: ED Notes Filed: 07/08/2021 5:03 PM Note Text: Pt to OR with surgical team Normal [facility] ED NOTE HNO ID: [id number] Author: Lenora James RN Service: Emergency Medicine Author Type: Registered Nurse Type: ED Notes Filed: 07/08/2021 4:50 PM Note Text: OR team to get pt Normal [facility] ED NOTE HNO ID: [id number] Author: Lenora James RN Service: Emergency Medicine Author Type: Registered Nurse Type: ED Notes Filed: 07/08/2021 4:50 PM Note Text: Normal [facility] ED NOTE HNO ID: [id number] Author: Lenora James RN Service: Emergency Medicine Author Type: Registered Nurse Type: ED Notes Filed: 07/08/2021 4:50 PM Note Text: Spoke with presurg; pt to go to OR now Normal [facility] ED NOTE HNO ID: [id number] Author: Lenora James RN Service: Emergency Medicine Author Type: Registered Nurse Type: ED Notes Filed: 07/08/2021 4:12 PM Note Text: Neurosurgery at beside [facility] ED NOTE HNO ID: [id number] Author: Lenora James RN Service: Emergency Medicine Author Type: Registered Nurse Type: ED Notes Filed: 07/08/2021 2:35 PM Note Text: respiratory aware of pt breathing treatments Normal [facility] ED NOTE HNO ID: [id number] Author: Lisa Woo RN Service: ? Author Type: Registered Nurse Type: ED Notes Filed: 07/08/2021 2:20 PM Note Text: Xray notified pt is ready. [facility] ED NOTE HNO ID: [id number] Author: Lenora James RN Service: Emergency Medicine Author Type: Registered Nurse Type: ED Notes Filed: 07/08/2021 12:14 PM Note Text: CT notified regarding imaging orders placed [facility] ED NOTE Normal [facility] ED PROV NOTEon 07-08-2021 ED PROV NOTE Normal [facility] Glucose CSF-mCncon 2 Glucose (CSF) [Mass/Vol] 88 mg/dL High 40-70 [facility] Comment on above: Order Comment: Speci men Type: CEREBROSPINAL FLUIDOrdering Facility: [facility] Address: [address] [place], [place] [phone] Result Comment: Lumb ar CSF glucose values of healthy patients are approximately 60% of the plasma values and must always be compared with a concurrently measured plasma value for adequate clinical interpretation.References: 1. Glucose HK (GLUC3) [package insert V 12.0 Q[place]ari]. [employer], [place], [place]. September 2015. 2. Michelle Moore, Loki, H. (2015). Chapter 7: Glucose and Lactate. Marianela Alcocer al.(eds.), Cerebrospinal Fluid in Clinical Neurology. [place]: [employer]. Performed By: #### 2 880-3, 2342-4 ####[facility]ORATORYCLIA [id number] [address] HIGH SENSITIVITY TROPONIN To n 07-08-2021 HIGH SENSITIVITY TAMIKO 27 ng/L High <12 [facility] Comment on above: Order Comment: Shira feldman Type: BLOOD SPECIMENOrdering Facility: [facility] Address: [address] [place] [address] Result Comment: When assessing risk for acute [...] day MACE. Performed By: #### H STNT ####[facility]ORATORYCLIA [id number] [address] HIGH SENSITIVITY TAMIKO 36 ng/L High <12 [facility] Comment on above: Order Comment: Shira feldman Type: BLOOD SPECIMENOrdering Facility: [facility] Address: [address] [place] [address] Result Comment: When assessing risk for acute [...] day MACE. Performed By: #### H STNT ####[facility] LABORATORYCLIA [id number] [address] OF [facility] HISTORY PHYSICALon HISTORY PHYSICAL Normal [facility] NURSING PROGon 07-08-2021 NURSING PROG Normal [facility] OPERATIVE NOon 07-08-2021 OPERATIVE NO Normal [facility] Prot CSF-mCncon 07-08-2021 Protein (CSF) [Mass/Vol] 33 mg/dL Normal 15-45 [facility] Comment on above: Order Comment: Shira feldman Type: CEREBROSPINAL FLUIDOrdering Facility: [facility] Address: [address] [place], [place] [address] Performed By: #### 2 880-3, 2342-4 ####[facility] LABORATORYCLIA [id number] [address] SARS-CoV-2 RNA Resp Ql MEGAN+p robeon 07-08-2021 SARS-CoV-2 (COVID-19) RNA MEGAN+probe Ql (Resp) COVID 19 RESULT: SARS-CoV-2 (Agent of COVID-19) Not Detected by RT-PCR or equivalent method. This test has been authorized by FDA under an Emergency Use Authorization (EUA). Normal [facility] Comment on above: Performed By: #### 9 4500-6 ####[facility] LABORATORYCLIA [id number] [address] STAPH AUREUS PCRon 2 S. aureus and MRSA panel MEGAN+probe (Nose) Normal Negative [facility] Comment on above: Order Comment: Speci men Type: SWAB OF INTERNAL NOSEOrdering Facility: [facility] Address: [address] [place] [address] Result Comment: Nega tive for Staphylococcus aureus by PCR.Negative for MRSA by PCR Performed By: #### S APCR ####[facility]OSPITALCLIA [id number] [address] Urinalysis complete panel (U )on 07-08-2021 Bacteria LM.HPF (Urine sed) [#/Area] Few Abnormal None Seen [facility] Comment on above: Order Comment: Speci men Type: URINE SPECIMENOrdering Facility: [facility] Address: [address] [place] [address] Performed By: #### 2 4356-8 ####[facility]ORATORYCLIA [id number] [address] [place] Bilirubin Ql (U) Negative Normal Negative [facility] Comment on above: Order Comment: Speci men Type: URINE SPECIMENOrdering Facility: [facility] Address: [address] [address] Performed By: #### 2 4356-8 ####[facility]ORATORYCLIA [id number] [address] Clarity (Unsp spec) Turbid Abnormal Clear [facility] Comment on above: Order Comment: Speci men Type: URINE SPECIMENOrdering Facility: [facility] Address: [address] [place] [address] Performed By: #### 2 4356-8 ####[facility]ORATORYCLIA [id number] [address] Color (U) Light Yellow Normal yellow [facility] Comment on above: Order Comment: Speci men Type: URINE SPECIMENOrdering Facility: [facility] Address: [address] [place] [address] Performed By: #### 2 4356-8 ####[facility]ORATORYCLIA [id number] [address] Glucose Test strip (U) [Mass/Vol] Negative Normal Negative [facility] Comment on above: Order Comment: Speci men Type: URINE SPECIMENOrdering Facility: [facility] Address: [address] [place] [address] Performed By: #### 2 4356-8 ####[facility]ORATORYCLIA [id number] [address] Hemoglobin Ql (U) Negative Normal Negative [facility] Comment on above: Order Comment: Speci men Type: URINE SPECIMENOrdering Facility: [facility] Address: [address] [place] [address] Performed By: #### 2 4356-8 ####[facility]ORATORYCLIA [id number] [address] Hyaline casts (Urine sed) [#/Area] 1-3 /LPF Abnormal 0 /LPF [facility] Comment on above: Order Comment: Speci men Type: URINE SPECIMENOrdering Facility: [facility] Address: [address] [place] [address] Performed By: #### 2 4356-8 ####[facility]ATORYCLIA [id number] [address] [place] Ketones Ql (U) Negative Normal Negative [facility] Comment on above: Order Comment: Speci men Type: URINE SPECIMENOrdering Facility: [facility] Address: [address] [place] [address] Performed By: #### 2 4356-8 ####[facility]ATORYCLIA [id number] [address] Leukocyte esterase Test strip Ql (U) Negative Normal Negative [facility] Comment on above: Order Comment: Speci men Type: URINE SPECIMENOrdering Facility: [facility] Address: [address] [place] [address] Performed By: #### 2 4356-8 ####[facility]ORATORYCLIA [id number] [address] [place] Nitrite Ql (U) Negative Normal Negative [facility] Comment on above: Order Comment: Speci men Type: URINE SPECIMENOrdering Facility: [facility] Address: [address] [place] [address] Performed By: #### 2 4356-8 ####[facility]ORATORYCLIA [id number] [address] [place] pH (U) 5.0 [pH] Normal 5.0-8.0 [facility] Comment on above: Order Comment: Speci men Type: URINE SPECIMENOrdering Facility: [facility] Address: [address] [place] [address] Performed By: #### 2 4356-8 ####[facility]ATORYCLIA [id number] [address] [place] Protein (U) [Mass/Vol] Negative Normal Negative [facility] Comment on above: Order Comment: Speci men Type: URINE SPECIMENOrdering Facility: [facility] Address: [address] [place] [address] Performed By: #### 2 4356-8 ####[facility]ORATORYCLIA [id number] [address] [place] [facility] RBC LM.HPF (Urine sed) [#/Area] 11-25 /HPF Abnormal 0-3 /HPF [facility] Comment on above: Order Comment: Speci men Type: URINE SPECIMENOrdering Facility: [facility] Address: [address] [place] [address] Performed By: #### 2 4356-8 ####[facility]ORATORYCLIA [id number] [address] Specific gravity (U) [Rel density] 1.018 Normal 1.005-1.030 [facility] Comment on above: Order Comment: Speci men Type: URINE SPECIMENOrdering Facility: [facility] Address: [address] [place] [address] Performed By: #### 2 4356-8 ####[facility]ORATORYCLIA [id number] [address] Urobilinogen Ql (U) Normal Normal Negative [facility] Comment on above: Order Comment: Speci men Type: URINE SPECIMENOrdering Facility: [facility] Address: [address] [place] [address] Performed By: #### 2 4356-8 ####[facility]ORATORYCLIA [id number] [address] [place] [facility] WBC LM.HPF (Urine sed) [#/Area] /[HPF] Abnormal 0-5 /HPF [facility] Comment on above: Order Comment: Speci men Type: URINE SPECIMENOrdering Facility: [facility] Address: [address] [place] [address] Performed By: #### 2 4356-8 ####[facility]ORATORYCLIA [id number] [address] Vancomycin random [Mass/Vol] on 07-08-2021 Vancomycin [Mass/Vol] 31.0 ug/mL High 10.0-20.0 [facility] Comment on above: Order Comment: Speci men Type: BLOOD SPECIMENOrdering Facility: [facility] Address: [address] [place] [address] Result Comment: Refe rence ranges and high/low indicator flags are provided as general guidelines only. The treating physician must determine appropriate target levels/dosing based on the specific clinical situation. Performed By: #### 4 091-5 ####[facility]ORATORYCLIA [id number] [place] [address] [facility] XR ABD 2V SUPINE W UPR/DECUB /CTLon 07-08-2021 XR ABD 2V SUPINE W UPR/DECUB/CTL Normal [facility] XR CHEST 1V FRONTALon 2021 XR CHEST 1V FRONTAL Normal [facility] XR CHEST 1V FRONTAL Normal [facility] XR NECK SOFT TISSUE 2V AP/LA Ton 07-08-2021 XR NECK SOFT TISSUE 2V AP/LAT Normal [facility] XR SKULL 2V AP/LATon 022 XR SKULL 2V AP/LAT Normal [facility] HISTORY PHYSICALon HISTORY PHYSICAL HNO ID: [id number] Author: Amy Beltran MD Service: ? Author Type: Physician Type: HANDP Filed: 06/30/2021 6:42 PM Note Text: Connected Care Unit History and Physical Facility: [facility] Level of Care: Skilled Admission Date: June [...] unspecified type, unspecified whether septic shock present ([facility]) - ICD9: 038.9, 995.92, ICD10: A41.9, R65.20 [...] regarding the above plan. Total time spent [id number] and/or counseling and coordinating care on the skilled care unit for patient was approximately 45 minutes SUBJECTIVE (HISTORY) Chief Complaint: Confusion, infection, blood clot. Andrew Sifuentes is being seen today for half-way facility (SNF) admission AND management of weakness, tube feed, infected retroperitoneal infection and seizure. HPI: This is a 71 year old male who presents from [facility] with primary admitting diagnosis of Seizure, enteral [...] CT brain concerning for hydrocephalus. Tip of DIRECTOR CARDIAC shunt was found to be in the [...] Status: Fu (more content not included)... Normal [facility] Basic metabolic 2000 panelon 06-28-2021 Anion gap [Moles/Vol] 7 mmol/L Low 9-18 [facility] Comment on above: Order Comment: Speci men Type: BLOOD SPECIMENOrdering Facility: [facility] Address: [address] [place] [address] Performed By: #### 2 4321-2, 85439-8 ####[facility]ORATORYCLIA [id number] [place] [address] [place] Calcium [Mass/Vol] 8.8 mg/dL Normal 8.5-10.2 [facility] Comment on above: Order Comment: Speci men Type: BLOOD SPECIMENOrdering Facility: [facility] Address: [address] [place] [address] Performed By: #### 2 4321-2, ####[facility]ORATORYCLIA [id number] [place] [address] [place] Chloride [Moles/Vol] 103 mmol/L Normal 97-105 [facility] Comment on above: Order Comment: Speci men Type: BLOOD SPECIMENOrdering Facility: [facility] Address: [address] [place] [address] Performed By: #### 2 4320-2, ####[facility]ORATORYCLIA [id number] [place] [address] [place] CO2 [Moles/Vol] 28 mmol/L Normal 22-30 [facility] Comment on above: Order Comment: Speci men Type: BLOOD SPECIMENOrdering Facility: [facility] Address: [address] [place] [address] Performed By: #### 2 4320-2, ####[facility]ORATORYCLIA [id number] [place] [address] [place] Creatinine [Mass/Vol] 0.57 mg/dL Low 0.73-1.22 [facility] Comment on above: Order Comment: Speci men Type: BLOOD SPECIMENOrdering Facility: [facility] Address: [address] [place] [address] Performed By: #### 2 4320-2, ####[facility]ORATORYCLIA [id number] [place] [address] [place] GFR/1.73 sq M.predicted MDRD (S/P/Bld) [Vol rate/Area] mL/min/{1.73_m2} Normal [facility] Comment on above: Order Comment: Speci men Type: BLOOD SPECIMENOrdering Facility: [facility] Address: [address] [place] [address] Result Comment: >60e GFR (Estimated GFR) Units [...] actual GFR. Performed By: #### 2 4321-2, 30860-8 ####[facility] HOSPITALCLIA [id number] [place] [address] [place] Glucose [Mass/Vol] 120 mg/dL High 74-99 [facility] Comment on above: Order Comment: Speccara feldman Type: BLOOD SPECIMENOrdering Facility: [facility] Address: [address] [phone] Result Comment: The [place] [employer] (ADA) provides guidance for cutoff [...] Standards of Medical Care in Diabetes 2016, [place] [employer]. Diabetes Care. 2016.39(Suppl 1). Performed By: #### 2 4321-2, 15415-4 ####[facility]ORATORYCLIA [id number] [place] [address] [place] Potassium [Moles/Vol] 3.8 mmol/L Normal 3.7-5.1 [facility] Comment on above: Order Comment: Shiar men Type: BLOOD SPECIMENOrdering Facility: [facility] Address: [address] [address] Performed By: #### 2 4321-2, ####[facility]ORATORYCLIA [id number] [address] Sodium [Moles/Vol] 138 mmol/L Normal 136-144 [facility] Comment on above: Order Comment: Speci men Type: BLOOD SPECIMENOrdering Facility: [facility] Address: [address] [place] [address] Performed By: #### 2 4321-2, ####[facility]ORATORYCLIA [id number] [address] [place] [facility] Urea nitrogen [Mass/Vol] 24 mg/dL Normal 9-24 [facility] Comment on above: Order Comment: Speci men Type: BLOOD SPECIMENOrdering Facility: [facility] Address: [address] [place] [address] Performed By: #### 2 4322, ####[facility]ORATORYCLIA [id number] [address] CASE MANAGEMon 06-28-2021 CASE MANAGEM Normal [facility] CBC panel Auto (Bld)on 06-28 Erythrocyte distribution width (RBC) [Ratio] 15.6 % High 11.5-15.0 [facility] Comment on above: Order Comment: Speci men Type: BLOOD SPECIMENOrdering Facility: [facility] Address: [address] [place] [address] Performed By: #### 5 8410-2 ####[facility]ORATORYCLIA [id number] [address] Hematocrit (Bld) [Volume fraction] 30.5 % Low 39.0-51.0 [facility] Comment on above: Order Comment: Speci men Type: BLOOD SPECIMENOrdering Facility: [facility] Address: [address] [place] [address] Performed By: #### 5 8410-2 ####[facility]ORATORYCLIA [id number] [address] OF [facility] Hemoglobin (Bld) [Mass/Vol] 9.4 g/dL Low 13.0-17.0 [facility] Comment on above: Order Comment: Speci men Type: BLOOD SPECIMENOrdering Facility: [facility] Address: [address] [place] [address] Performed By: #### 5 8410-2 ####[facility]ORATORYCLIA [id number] [address] MCH (RBC) [Entitic mass] 27.8 pg Normal 26.0-34.0 [facility] Comment on above: Order Comment: Speci men Type: BLOOD SPECIMENOrdering Facility: [facility] Address: [address] [place] [address] Performed By: #### 5 8410-2 ####[facility]ORATORYCLIA [id number] [address] MCHC (RBC) [Mass/Vol] 30.8 g/dL Normal 30.5-36.0 [facility] Comment on above: Order Comment: Speci men Type: BLOOD SPECIMENOrdering Facility: [facility] Address: [address] [place] [address] Performed By: #### 5 8410-2 ####[facility]ORATORYCLIA [id number] [address] [place] [facility] MCV (RBC) [Entitic vol] 90.2 fL Normal 80.0-100.0 [facility] Comment on above: Order Comment: Speci men Type: BLOOD SPECIMENOrdering Facility: [facility] Address: [address] [place] [address] Performed By: #### 5 8410-2 ####[facility]ORATORYCLIA [id number] [address] Nucleated RBC (Bld) [#/Vol] 10*3/uL Normal <0.01 [facility] Comment on above: Order Comment: Speci men Type: BLOOD SPECIMENOrdering Facility: [facility] Address: [address] [place], [place] [address] Performed By: #### 5 8410-2 ####[facility]ORATORYCLIA [id number] [address] Platelet mean volume (Bld) [Entitic vol] 9.9 fL Normal 9.0-12.7 [facility] Comment on above: Order Comment: Speci men Type: BLOOD SPECIMENOrdering Facility: [facility] Address: [address] [place] [address] Performed By: #### 5 8410-2 ####[facility]ORATORYCLIA [id number] [address] [place] Platelets (Bld) [#/Vol] 333 10*3/uL Normal 150-400 [facility] Comment on above: Order Comment: Speci men Type: BLOOD SPECIMENOrdering Facility: [facility] Address: [address] [place] [address] Performed By: #### 5 8410-2 ####[facility]ORATORYCLIA [id number] [place] [address] [place] RBC (Bld) [#/Vol] 3.38 10*6/uL Low 4.20-6.00 [facility] Comment on above: Order Comment: Speci men Type: BLOOD SPECIMENOrdering Facility: [facility] Address: [address] [place], [place] [address] Performed By: #### 5 8410-2 ####[facility]ORATORYCLIA [id number] [address] [place] WBC (Bld) [#/Vol] 9.71 10*3/uL Normal 3.70-11.00 [facility] Comment on above: Order Comment: Speci men Type: BLOOD SPECIMENOrdering Facility: [facility] Address: [address] [place] [address] Performed By: #### 5 8410-2 ####[facility]ORATORYCLIA [id number] [place] [address] [place] CNDSon 06-28-2021 CNDS Normal [facility] CONSULT PROGon 06-28-2021 CONSULT PROG Normal [facility] Magnesium SerPl-mCncon 06-28 Magnesium [Mass/Vol] 2.2 mg/dL Normal 1.7-2.3 [facility] Comment on above: Order Comment: Speci men Type: BLOOD SPECIMENOrdering Facility: [facility] Address: [address] [place] [address] Performed By: #### 2 4321-2, ####[facility]ATORYCLIA [id number] [address] [place] Vancomycin random [Mass/Vol] on 06-28-2021 Vancomycin [Mass/Vol] 23.0 ug/mL High 10.0-20.0 [facility] Comment on above: Order Comment: Speci men Type: BLOOD SPECIMENOrdering Facility: [facility] Address: [address] [place] [address] Result Comment: Refe rence ranges and high/low indicator flags are provided as general guidelines only. The treating physician must determine appropriate target levels/dosing based on the specific clinical situation. Performed By: #### 4 091-5 ####[facility]ORATORYCLIA [id number] [address] [place] ALLIED HEALTHon 06-27-2021 ALLIED HEALTH Normal [facility] Basic metabolic 2000 panelon 06-27-2021 Anion gap [Moles/Vol] 10 mmol/L Normal 9-18 [facility] Comment on above: Order Comment: Speci men Type: BLOOD SPECIMENOrdering Facility: [facility] Address: [address] [place] [place] [address] Performed By: #### 2 4321-2, ####[facility]ORATORYCLIA [id number] [place] [address] [place] Calcium [Mass/Vol] 8.8 mg/dL Normal 8.5-10.2 [facility] Comment on above: Order Comment: Speci men Type: BLOOD SPECIMENOrdering Facility: [facility] Address: [address] [address] Performed By: #### 2 4321-2, ####[facility]ATORYCLIA [id number] [place] [address] [place] Chloride [Moles/Vol] 104 mmol/L Normal 97-105 [facility] Comment on above: Order Comment: Speci men Type: BLOOD SPECIMENOrdering Facility: [facility] Address: [address] [place] [address] Performed By: #### 2 4321-2, ####[facility]ATORYCLIA [id number] [place] [address] [place] CO2 [Moles/Vol] 26 mmol/L Normal 22-30 [facility] Comment on above: Order Comment: Speci men Type: BLOOD SPECIMENOrdering Facility: [facility] Address: [address] [place] [address] Performed By: #### 2 4321-2, ####[facility]ATORYCLIA [id number] [place] [address] [place] Creatinine [Mass/Vol] 0.57 mg/dL Low 0.73-1.22 [facility] Comment on above: Order Comment: Speci men Type: BLOOD SPECIMENOrdering Facility: [facility] Address: [address] [place] [address] Performed By: #### 2 4321-2, ####[facility]ATORYCLIA [id number] [place] [address] [place] GFR/1.73 sq M.predicted MDRD (S/P/Bld) [Vol rate/Area] mL/min/{1.73_m2} Normal [facility] Comment on above: Order Comment: Speci men Type: BLOOD SPECIMENOrdering Facility: [facility] Address: [address] [place] [address] Result Comment: >60e GFR (Estimated GFR) Units [...] actual GFR. Performed By: #### 2 432-, ####[facility]ATORYCLIA [id number] [place] [address] [place] Glucose [Mass/Vol] 133 mg/dL High 74-99 [facility] Comment on above: Order Comment: Shira feldman Type: BLOOD SPECIMENOrdering Facility: [facility] Address: [address] [place], [place] [phone] Result Comment: The [place] [employer] (ADA) provides guidance for cutoff [...] Standards of Medical Care in Diabetes 2016, [place] [employer]. Diabetes Care. 2016.39(Suppl 1). Performed By: #### 2 432-, ####[facility]ORATORYCLIA [id number] [place] [address] [place] Potassium [Moles/Vol] 4.2 mmol/L Normal 3.7-5.1 [facility] Comment on above: Order Comment: Shira feldman Type: BLOOD SPECIMENOrdering Facility: [facility] Address: [address] [place] [address] Performed By: #### 2 4321-2, ####[facility]ORATORYCLIA [id number] [address] [place] [facility] Sodium [Moles/Vol] 140 mmol/L Normal 136-144 [facility] Comment on above: Order Comment: Speci men Type: BLOOD SPECIMENOrdering Facility: [facility] Address: [address] [place] [address] Performed By: #### 2 4321-2, ####[facility]ATORYCLIA [id number] [address] [place] Urea nitrogen [Mass/Vol] 24 mg/dL Normal 9-24 [facility] Comment on above: Order Comment: Speci men Type: BLOOD SPECIMENOrdering Facility: [facility] Address: [address] [place] [address] Performed By: #### 2 4322, ####[facility]ORATORYCLIA [id number] [address] CASE MANAGEMon 06-27-2021 CASE MANAGEM Normal [facility] CBC panel Auto (Bld)on 06-27 Erythrocyte distribution width (RBC) [Ratio] 15.8 % High 11.5-15.0 [facility] Comment on above: Order Comment: Speci men Type: BLOOD SPECIMENOrdering Facility: [facility] Address: [address] [place] [address] Performed By: #### 5 8410-2 ####[facility]ORATORYCLIA [id number] [address] [place] [facility] Hematocrit (Bld) [Volume fraction] 31.4 % Low 39.0-51.0 [facility] Comment on above: Order Comment: Speci men Type: BLOOD SPECIMENOrdering Facility: [facility] Address: [address] [place] [address] Performed By: #### 5 8410-2 ####[facility]ORATORYCLIA [id number] [place] [address] [place] Hemoglobin (Bld) [Mass/Vol] 9.3 g/dL Low 13.0-17.0 [facility] Comment on above: Order Comment: Speci men Type: BLOOD SPECIMENOrdering Facility: [facility] Address: [address] [place] [address] Performed By: #### 5 8410-2 ####[facility]ORATORYCLIA [id number] [address] MCH (RBC) [Entitic mass] 27.0 pg Normal 26.0-34.0 [facility] Comment on above: Order Comment: Speci men Type: BLOOD SPECIMENOrdering Facility: [facility] Address: [address] [place] [address] Performed By: #### 5 8410-2 ####[facility]ORATORYCLIA [id number] [address] STATES [facility] MCHC (RBC) [Mass/Vol] 29.6 g/dL Low 30.5-36.0 [facility] Comment on above: Order Comment: Speci men Type: BLOOD SPECIMENOrdering Facility: [facility] Address: [address] [place] [address] Performed By: #### 5 8410-2 ####[facility]ORATORYCLIA [id number] [address] MCV (RBC) [Entitic vol] 91.3 fL Normal 80.0-100.0 [facility] Comment on above: Order Comment: Speci men Type: BLOOD SPECIMENOrdering Facility: [facility] Address: [address] [place] [address] Performed By: #### 5 8410-2 ####[facility] LABORATORYCLIA [id number] [address] Nucleated RBC (Bld) [#/Vol] 10*3/uL Normal <0.01 [facility] Comment on above: Order Comment: Speci men Type: BLOOD SPECIMENOrdering Facility: [facility] Address: [address] [place] [address] Performed By: #### 5 8410-2 ####[facility]ORATORYCLIA [id number] [address] Platelet mean volume (Bld) [Entitic vol] 10.3 fL Normal 9.0-12.7 [facility] Comment on above: Order Comment: Speci men Type: BLOOD SPECIMENOrdering Facility: [facility] Address: [address] [place] [address] Performed By: #### 5 8410-2 ####[facility]ORATORYCLIA [id number] [address] [place] Platelets (Bld) [#/Vol] 359 10*3/uL Normal 150-400 [facility] Comment on above: Order Comment: Speci men Type: BLOOD SPECIMENOrdering Facility: [facility] Address: [address] [place] [address] Performed By: #### 5 8410-2 ####[facility]ORATORYCLIA [id number] [address] [place] RBC (Bld) [#/Vol] 3.44 10*6/uL Low 4.20-6.00 [facility] Comment on above: Order Comment: Speci men Type: BLOOD SPECIMENOrdering Facility: [facility] Address: [address] [place] [address] Performed By: #### 5 8410-2 ####[facility]ORATORYCLIA [id number] [address] [place] WBC (Bld) [#/Vol] 10.73 10*3/uL Normal 3.70-11.00 [facility] Comment on above: Order Comment: Speci men Type: BLOOD SPECIMENOrdering Facility: [facility] Address: [address] [place] [address] Performed By: #### 5 8410-2 ####[facility]ORATORYCLIA [id number] [address] [place] Magnesium SerPl-mCncon 06-27 Magnesium [Mass/Vol] 2.2 mg/dL Normal 1.7-2.3 [facility] Comment on above: Order Comment: Speci men Type: BLOOD SPECIMENOrdering Facility: [facility] Address: [address] [place] [address] Performed By: #### 2 4321-2, 93365-8 ####[facility]ORATORYCLIA [id number] [place] [address] [place] NT-proBNP SerPl-ncon 06-27 Natriuretic peptide.B prohormone N-Terminal [Mass/Vol] 184 pg/mL High <125 [facility] Comment on above: Order Comment: Speci men Type: BLOOD SPECIMENOrdering Facility: [facility] Address: [address] [place] [address] Performed By: #### 3 3762-6 ####[facility]ORATORYCLIA [id number] [place] [address] [place] NUTRITIONon 06-27-2021 NUTRITION Normal [facility] THERAPY NTon 06-27-2021 THERAPY NT Normal [facility] THERAPY NT Normal [facility] XR CHEST 1V FRONTALon 2021 XR CHEST 1V FRONTAL Normal [facility] Basic metabolic 2000 panelon 06-26-2021 Anion gap [Moles/Vol] 9 mmol/L Normal 9-18 [facility] Comment on above: Order Comment: Speci men Type: BLOOD SPECIMENOrdering Facility: [facility] Address: [address] [place] [address] Performed By: #### 1 9123-9, 48880-2 ####[facility]ORATORYCLIA [id number] [place] [address] [place] Calcium [Mass/Vol] 8.7 mg/dL Normal 8.5-10.2 [facility] Comment on above: Order Comment: Speci men Type: BLOOD SPECIMENOrdering Facility: [facility] Address: [address] [place] [address] Performed By: #### 1 9123-9, 58989-9 ####[facility]ORATORYCLIA [id number] [address] [place] Chloride [Moles/Vol] 105 mmol/L Normal 97-105 [facility] Comment on above: Order Comment: Speci men Type: BLOOD SPECIMENOrdering Facility: [facility] Address: [address] [place] [address] Performed By: #### 1 9123-9, 26512-5 ####[facility]ORATORYCLIA [id number] [place] [address] [place] CO2 [Moles/Vol] 26 mmol/L Normal 22-30 [facility] Comment on above: Order Comment: Speci men Type: BLOOD SPECIMENOrdering Facility: [facility] Address: [address] [place] [address] Performed By: #### 1 9123-9, 06269-3 ####[facility]ORATORYCLIA [id number] [address] STATES OF [facility] Creatinine [Mass/Vol] 0.56 mg/dL Low 0.73-1.22 [facility] Comment on above: Order Comment: Speci men Type: BLOOD SPECIMENOrdering Facility: [facility] Address: [address] [place] [address] Performed By: #### 1 9123-9, 38459-2 ####[facility]ATORYCLIA [id number] [address] [place] GFR/1.73 sq M.predicted MDRD (S/P/Bld) [Vol rate/Area] mL/min/{1.73_m2} Normal [facility] Comment on above: Order Comment: Speci men Type: BLOOD SPECIMENOrdering Facility: [facility] Address: [address] [place] [address] Result Comment: >60e GFR (Estimated GFR) Units [...] actual GFR. Performed By: #### 1 9123-9, 04839-2 ####[facility]ORATORYCLIA [id number] [place] [address] [place] Glucose [Mass/Vol] 134 mg/dL High 74-99 [facility] Comment on above: Order Comment: Shira feldman Type: BLOOD SPECIMENOrdering Facility: [facility] Address: [address] [address] Result Comment: The [place] [employer] (ADA) provides guidance for cutoff [...] Standards of Medical Care in Diabetes 2016, [place] [employer]. Diabetes Care. 2016.39(Suppl 1). Performed By: #### 1 9123-9, 87513-1 ####[facility]ATORYCLIA [id number] [place] [address] [place] Potassium [Moles/Vol] 3.8 mmol/L Normal 3.7-5.1 [facility] Comment on above: Order Comment: Shira feldman Type: BLOOD SPECIMENOrdering Facility: [facility] Address: [address] [phone] Performed By: #### 1 9123-9, 95514-0 ####[facility]ORATORYCLIA [id number] [place] [address] [place] Sodium [Moles/Vol] 140 mmol/L Normal 136-144 [facility] Comment on above: Order Comment: Speci men Type: BLOOD SPECIMENOrdering Facility: [facility] Address: [address] [place] [address] Performed By: #### 1 9123-9, 27010-6 ####[facility]ORATORYCLIA [id number] [address] [place] Urea nitrogen [Mass/Vol] 24 mg/dL Normal 9-24 [facility] Comment on above: Order Comment: Speci men Type: BLOOD SPECIMENOrdering Facility: [facility] Address: [address] [place] [address] Performed By: #### 1 9123-9, 33707-5 ####[facility]ORATORYCLIA [id number] [address] STATES [place] [facility] CBC panel Auto (Bld)on 06-26 Erythrocyte distribution width (RBC) [Ratio] 15.9 % High 11.5-15.0 [facility] Comment on above: Order Comment: Speci men Type: BLOOD SPECIMENOrdering Facility: [facility] Address: [address] [place] [address] Performed By: #### 5 8410-2 ####[facility]ORATORYCLIA [id number] [address] STATES OF [facility] Hematocrit (Bld) [Volume fraction] 29.8 % Low 39.0-51.0 [facility] Comment on above: Order Comment: Speci men Type: BLOOD SPECIMENOrdering Facility: [facility] Address: [address] [place] [address] Performed By: #### 5 8410-2 ####[facility]ORATORYCLIA [id number] [address] [place] Hemoglobin (Bld) [Mass/Vol] 9.1 g/dL Low 13.0-17.0 [facility] Comment on above: Order Comment: Speci men Type: BLOOD SPECIMENOrdering Facility: [facility] Address: [address] [place] [address] Performed By: #### 5 8410-2 ####[facility]ATORYCLIA [id number] [address] MCH (RBC) [Entitic mass] 27.8 pg Normal 26.0-34.0 [facility] Comment on above: Order Comment: Speci men Type: BLOOD SPECIMENOrdering Facility: [facility] Address: [address] [place] [address] Performed By: #### 5 8410-2 ####[facility]ATORYCLIA [id number] [address] MCHC (RBC) [Mass/Vol] 30.5 g/dL Normal 30.5-36.0 [facility] Comment on above: Order Comment: Speci men Type: BLOOD SPECIMENOrdering Facility: [facility] Address: [address] [place] [address] Performed By: #### 5 8410-2 ####[facility]ORATORYCLIA [id number] [address] MCV (RBC) [Entitic vol] 91.1 fL Normal 80.0-100.0 [facility] Comment on above: Order Comment: Speci men Type: BLOOD SPECIMENOrdering Facility: [facility] Address: [address] [place] [address] Performed By: #### 5 8410-2 ####[facility]ORATORYCLIA [id number] [address] Nucleated RBC (Bld) [#/Vol] 10*3/uL Normal <0.01 [facility] Comment on above: Order Comment: Speci men Type: BLOOD SPECIMENOrdering Facility: [facility] Address: [address] [place] [address] Performed By: #### 5 8410-2 ####[facility]ATORYCLIA [id number] [address] Platelet mean volume (Bld) [Entitic vol] 10.3 fL Normal 9.0-12.7 [facility] Comment on above: Order Comment: Speci men Type: BLOOD SPECIMENOrdering Facility: [facility] Address: [address] [place] [address] Performed By: #### 5 8410-2 ####[facility]ORATORYCLIA [id number] [address] [place] Platelets (Bld) [#/Vol] 336 10*3/uL Normal 150-400 [facility] Comment on above: Order Comment: Speci men Type: BLOOD SPECIMENOrdering Facility: [facility] Address: [address] [place] [address] Performed By: #### 5 8410-2 ####[facility]ATORYCLIA [id number] [address] [place] RBC (Bld) [#/Vol] 3.27 10*6/uL Low 4.20-6.00 [facility] Comment on above: Order Comment: Speci men Type: BLOOD SPECIMENOrdering Facility: [facility] Address: [address] [place] [address] Performed By: #### 5 8410-2 ####[facility]ORATORYCLIA [id number] [address] OF [facility] WBC (Bld) [#/Vol] 9.14 10*3/uL Normal 3.70-11.00 [facility] Comment on above: Order Comment: Speci men Type: BLOOD SPECIMENOrdering Facility: [facility] Address: [address] [place] [address] Performed By: #### 5 8410-2 ####[facility]ORATORYCLIA [id number] [address] OF [facility] CONSULT PROGon 06-26-2021 CONSULT PROG Normal [facility] Magnesium SerPl-mCncon 06-26 Magnesium [Mass/Vol] 2.2 mg/dL Normal 1.7-2.3 [facility] Comment on above: Order Comment: Speci men Type: BLOOD SPECIMENOrdering Facility: [facility] Address: [address] [place] [address] Performed By: #### 1 9123-9, 27934-0 ####[facility]ORATORYCLIA [id number] [place] [address] [place] NURSING PROGon 06-26-2021 NURSING PROG Normal [facility] NURSING PROG Normal [facility] Basic metabolic 2000 panelon 06-25-2021 Anion gap [Moles/Vol] 8 mmol/L Low 9-18 [facility] Comment on above: Order Comment: Speci men Type: BLOOD SPECIMENOrdering Facility: [facility] Address: [address] [place] [address] Performed By: #### 2 4321-2, 80057-2 ####[facility]ORATORYCLIA [id number] [place] [address] [place] Calcium [Mass/Vol] 8.8 mg/dL Normal 8.5-10.2 [facility] Comment on above: Order Comment: Speci men Type: BLOOD SPECIMENOrdering Facility: [facility] Address: [address] [place] [address] Performed By: #### 2 4321-2, ####[facility]ATORYCLIA [id number] [place] [address] [place] Chloride [Moles/Vol] 105 mmol/L Normal 97-105 [facility] Comment on above: Order Comment: Speci men Type: BLOOD SPECIMENOrdering Facility: [facility] Address: [address] [place] [address] Performed By: #### 2 4321-2, ####[facility]ATORYCLIA [id number] [place] [address] [place] CO2 [Moles/Vol] 27 mmol/L Normal 22-30 [facility] Comment on above: Order Comment: Speci men Type: BLOOD SPECIMENOrdering Facility: [facility] Address: [address] [place] [address] Performed By: #### 2 432-, ####[facility]ORATORYCLIA [id number] [place] [address] [place] Creatinine [Mass/Vol] 0.59 mg/dL Low 0.73-1.22 [facility] Comment on above: Order Comment: [facility] Type: BLOOD SPECIMENOrdering Facility: [facility] Address: [address] [place], [place] [phone] Performed By: #### 2 432-, ####[facility]ORATORYCLIA [id number] [place] [address] [place] GFR/1.73 sq M.predicted MDRD (S/P/Bld) [Vol rate/Area] mL/min/{1.73_m2} Normal [facility] Comment on above: Order Comment: [facility] Type: BLOOD SPECIMENOrdering Facility: [facility] Address: [address] [place] [address] Result Comment: >60e GFR (Estimated GFR) Units [...] actual GFR. Performed By: #### 2 432-, ####[facility]ORATORYCLIA [id number] [place] [address] [place] Glucose [Mass/Vol] 132 mg/dL High 74-99 [facility] Comment on above: Order Comment: Shira [facility] Type: BLOOD SPECIMENOrdering Facility: [facility] Address: [address] [place] [phone] Result Comment: The [place] [employer] (ADA) provides guidance for cutoff [...] Standards of Medical Care in Diabetes 2016, [place] [employer]. Diabetes Care. 2016.39(Suppl 1). Performed By: #### 2 4320-06, ####[facility]ORATORYCLIA [id number] [place] [address] [place] Potassium [Moles/Vol] 3.9 mmol/L Normal 3.7-5.1 [facility] Comment on above: Order Comment: Speci men Type: BLOOD SPECIMENOrdering Facility: [facility] Address: [address] [place] [address] Performed By: #### 2 4320-06, ####[facility]ORATORYCLIA [id number] [address] STATES [facility] Sodium [Moles/Vol] 140 mmol/L Normal 136-144 [facility] Comment on above: Order Comment: Shira feldman Type: BLOOD SPECIMENOrdering Facility: [facility] Address: [address] [place] [address] Performed By: #### 2 4320-06, ####[facility]ORATORYCLIA [id number] [address] [id number] [place] Urea nitrogen [Mass/Vol] 24 mg/dL Normal 9-24 [facility] Comment on above: Order Comment: Johni men Type: BLOOD SPECIMENOrdering Facility: [facility] Address: [address] [place] [address] Performed By: #### 2 ####[facility]ORATORYCLIA [id number] [place] [id number] [facility] [place] CASE MANAGEMon 06-25-2021 CASE MANAGEM Normal [facility] CBC panel Auto (Bld)on 06-25 Erythrocyte distribution width (RBC) [Ratio] 15.9 % High 11.5-15.0 [facility] Comment on above: Order Comment: Speci men Type: BLOOD SPECIMENOrdering Facility: [facility] Address: [address] [place] [address] Performed By: #### 5 8410-2 ####[facility]ORATORYCLIA [id number] [address] Hematocrit (Bld) [Volume fraction] 31.0 % Low 39.0-51.0 [facility] Comment on above: Order Comment: Speci men Type: BLOOD SPECIMENOrdering Facility: [facility] Address: [address] [place] [address] Performed By: #### 5 8410-2 ####[facility]ATORYCLIA [id number] [address] STATES OF [facility] Hemoglobin (Bld) [Mass/Vol] 9.4 g/dL Low 13.0-17.0 [facility] Comment on above: Order Comment: Speci men Type: BLOOD SPECIMENOrdering Facility: [facility] Address: [address] [place] [address] Performed By: #### 5 8410-2 ####[facility]ATORYCLIA [id number] [address] STATES [facility] MCH (RBC) [Entitic mass] 28.1 pg Normal 26.0-34.0 [facility] Comment on above: Order Comment: Speci men Type: BLOOD SPECIMENOrdering Facility: [facility] Address: [address] [place] [address] Performed By: #### 5 8410-2 ####[facility]ATORYCLIA [id number] [address] [place] MCHC (RBC) [Mass/Vol] 30.3 g/dL Low 30.5-36.0 [facility] Comment on above: Order Comment: Speci men Type: BLOOD SPECIMENOrdering Facility: [facility] Address: [address] [address] Performed By: #### 5 8410-2 ####[facility]ATORYCLIA [id number] [address] MCV (RBC) [Entitic vol] 92.5 fL Normal 80.0-100.0 [facility] Comment on above: Order Comment: Speci men Type: BLOOD SPECIMENOrdering Facility: [facility] Address: [address] [address] Performed By: #### 5 8410-2 ####[facility]ORATORYCLIA [id number] [address] OF [facility] Nucleated RBC (Bld) [#/Vol] 10*3/uL Normal <0.01 [facility] Comment on above: Order Comment: Speci men Type: BLOOD SPECIMENOrdering Facility: [facility] Address: [address] [place] [address] Performed By: #### 5 8410-2 ####[facility]ATORYCLIA [id number] [address] Platelet mean volume (Bld) [Entitic vol] 10.5 fL Normal 9.0-12.7 [facility] Comment on above: Order Comment: Speci men Type: BLOOD SPECIMENOrdering Facility: [facility] Address: [address] Performed By: #### 5 8410-2 ####[facility]ATORYCLIA [id number] [address] Platelets (Bld) [#/Vol] 311 10*3/uL Normal 150-400 [facility] Comment on above: Order Comment: Speci men Type: BLOOD SPECIMENOrdering Facility: [facility] Address: [address] [place] [address] Performed By: #### 5 8410-2 ####[facility]ORATORYCLIA [id number] [address] [place] RBC (Bld) [#/Vol] 3.35 10*6/uL Low 4.20-6.00 [facility] Comment on above: Order Comment: Speci men Type: BLOOD SPECIMENOrdering Facility: [facility] Address: [address] [place] [address] Performed By: #### 5 8410-2 ####[facility]ORATORYCLIA [id number] [place] [address] [place] WBC (Bld) [#/Vol] 9.57 10*3/uL Normal 3.70-11.00 [facility] Comment on above: Order Comment: Speci men Type: BLOOD SPECIMENOrdering Facility: [facility] Address: [address] [place] [address] Performed By: #### 5 8410-2 ####[facility]ORATORYCLIA [id number] [address] [place] Magnesium SerPl-mCncon 06-25 Magnesium [Mass/Vol] 2.4 mg/dL High 1.7-2.3 [facility] Comment on above: Order Comment: Speci men Type: BLOOD SPECIMENOrdering Facility: [facility] Address: [address] [place] [address] Performed By: #### 2 4321-2, 95596-7 ####[facility]ORATORYCLIA [id number] [place] [address] [place] Basic metabolic 2000 panelon 06-24-2021 Anion gap [Moles/Vol] 9 mmol/L Normal 9-18 [facility] Comment on above: Order Comment: Speci men Type: BLOOD SPECIMENOrdering Facility: [facility] Address: [address] [place] [address] Performed By: #### 1 9123-9, 36959-0 ####[facility]ORATORYCLIA [id number] [place] [address] [place] Calcium [Mass/Vol] 8.6 mg/dL Normal 8.5-10.2 [facility] Comment on above: Order Comment: Speci men Type: BLOOD SPECIMENOrdering Facility: [facility] Address: [address] [place] [address] Performed By: #### 1 9123-9, 32853-9 ####[facility]ORATORYCLIA [id number] [place] [address] [place] Chloride [Moles/Vol] 103 mmol/L Normal 97-105 [facility] Comment on above: Order Comment: Speci men Type: BLOOD SPECIMENOrdering Facility: [facility] Address: [address] [place] [address] Performed By: #### 1 9123-9, 74920-8 ####[facility]ORATORYCLIA [id number] [address] [place] CO2 [Moles/Vol] 26 mmol/L Normal 22-30 [facility] Comment on above: Order Comment: Speci men Type: BLOOD SPECIMENOrdering Facility: [facility] Address: [address] [place] [address] Performed By: #### 1 9123-9, 04170-0 ####[facility]ORATORYCLIA [id number] [place] [address] [place] Creatinine [Mass/Vol] 0.60 mg/dL Low 0.73-1.22 [facility] Comment on above: Order Comment: Speci men Type: BLOOD SPECIMENOrdering Facility: [facility] Address: [address] [place] [address] Performed By: #### 1 9123-9, 10714-6 ####[facility]ATORYCLIA [id number] [place] [address] [place] GFR/1.73 sq M.predicted MDRD (S/P/Bld) [Vol rate/Area] mL/min/{1.73_m2} Normal [facility] Comment on above: Order Comment: Speci men Type: BLOOD SPECIMENOrdering Facility: [facility] Address: [address] [place] [address] Result Comment: >60e GFR (Estimated GFR) Units [...] actual GFR. Performed By: #### 1 9123-9, 69111-6 ####[facility]ITALCL[facility] [id number] [place] [address] [place] Glucose [Mass/Vol] 126 mg/dL High 74-99 [facility] Comment on above: Order Comment: Shira feldman Type: BLOOD SPECIMENOrdering Facility: [facility] Address: [address] [place] [id number] Result Comment: The [place] [employer] (ADA) provides guidance for cutoff [...] Standards of Medical Care in Diabetes 2016, [place] [employer]. Diabetes Care. 2016.39(Suppl 1). Performed By: #### 1 9123-9, 57451-5 ####[facility]ORATORYCLIA [id number] [place] [id number] [place] Potassium [Moles/Vol] 3.9 mmol/L Normal 3.7-5.1 [facility] Comment on above: Order Comment: Speccara feldman Type: BLOOD SPECIMENOrdering Facility: [facility] Address: [address] [id number] Performed By: #### 1 9123-9, 32757-9 ####[facility]ORATORYCLIA [id number] [address] STATES [facility] Sodium [Moles/Vol] 138 mmol/L Normal 136-144 [facility] Comment on above: Order Comment: Speci men Type: BLOOD SPECIMENOrdering Facility: [facility] Address: [address] [place] [address] Performed By: #### 1 9123-9, 32740-1 ####[facility] LABORATORYCLIA [id number] [address] [place] Urea nitrogen [Mass/Vol] 24 mg/dL Normal 9-24 [facility] Comment on above: Order Comment: Speci men Type: BLOOD SPECIMENOrdering Facility: [facility] Address: [address] [place] [address] Performed By: #### 1 [id number], ####[facility] LABORATORYCLIA [id number] [address] [place] CASE MANAGEMon 06-24-2021 CASE MANAGEM Normal [facility] CASE MANAGEM Normal [facility] CASE MANAGEM Normal [facility] CBC panel Auto (Bld)on 06-24 Erythrocyte distribution width (RBC) [Ratio] 16.1 % High 11.5-15.0 [facility] Comment on above: Order Comment: Speci men Type: BLOOD SPECIMENOrdering Facility: ACCESS [facility] Address: [address] [place] [address] Performed By: #### 5 8410-2 ####[facility]ATORYCLIA [id number] [address] Hematocrit (Bld) [Volume fraction] 31.7 % Low 39.0-51.0 [facility] Comment on above: Order Comment: Speci men Type: BLOOD SPECIMENOrdering Facility: [facility] Address: [address] [place] [address] Performed By: #### 5 8410-2 ####[facility]ATORYCLIA [id number] [address] OF [facility] Hemoglobin (Bld) [Mass/Vol] 9.7 g/dL Low 13.0-17.0 [facility] Comment on above: Order Comment: Speci men Type: BLOOD SPECIMENOrdering Facility: [facility] Address: [address] [place] [address] Performed By: #### 5 8410-2 ####[facility]ATORYCLIA [id number] [address] MCH (RBC) [Entitic mass] 28.0 pg Normal 26.0-34.0 [facility] Comment on above: Order Comment: Speci men Type: BLOOD SPECIMENOrdering Facility: [facility] Address: [address] [place] [address] Performed By: #### 5 8410-2 ####[facility]ATORYCLIA [id number] [address] MCHC (RBC) [Mass/Vol] 30.6 g/dL Normal 30.5-36.0 [facility] Comment on above: Order Comment: Speci men Type: BLOOD SPECIMENOrdering Facility: [facility] Address: [address] [place] [address] Performed By: #### 5 8410-2 ####[facility]ATORYCLIA [id number] [address] OF [facility] MCV (RBC) [Entitic vol] 91.4 fL Normal 80.0-100.0 [facility] Comment on above: Order Comment: Speci men Type: BLOOD SPECIMENOrdering Facility: [facility] Address: [address] [place] [address] Performed By: #### 5 8410-2 ####[facility]ATORYCLIA [id number] [address] Nucleated RBC (Bld) [#/Vol] 10*3/uL Normal <0.01 [facility] Comment on above: Order Comment: Speci men Type: BLOOD SPECIMENOrdering Facility: [facility] Address: [address] [place] [address] Performed By: #### 5 8410-2 ####[facility]ATORYCLIA [id number] [address] Platelet mean volume (Bld) [Entitic vol] 11.0 fL Normal 9.0-12.7 [facility] Comment on above: Order Comment: Speci men Type: BLOOD SPECIMENOrdering Facility: [facility] Address: [address] [place] [address] Performed By: #### 5 8410-2 ####[facility]ATORYCLIA [id number] [address] [place] Platelets (Bld) [#/Vol] 358 10*3/uL Normal 150-400 [facility] Comment on above: Order Comment: Speci men Type: BLOOD SPECIMENOrdering Facility: [facility] Address: [address] [place] [address] Performed By: #### 5 8410-2 ####[facility]ATORYCLIA [id number] [address] [place] RBC (Bld) [#/Vol] 3.47 10*6/uL Low 4.20-6.00 [facility] Comment on above: Order Comment: Speci men Type: BLOOD SPECIMENOrdering Facility: [facility] Address: [address] [place] [address] Performed By: #### 5 8410-2 ####[facility]ATORYCLIA [id number] [address] [place] WBC (Bld) [#/Vol] 10.07 10*3/uL Normal 3.70-11.00 [facility] Comment on above: Order Comment: Speci men Type: BLOOD SPECIMENOrdering Facility: [facility] Address: [address] [place] [address] Performed By: #### 5 8410-2 ####[facility]ATORYCLIA [id number] [place] [address] [place] Magnesium SerPl-mCncon 06-24 Magnesium [Mass/Vol] 2.3 mg/dL Normal 1.7-2.3 [facility] Comment on above: Order Comment: Speci men Type: BLOOD SPECIMENOrdering Facility: [facility] Address: [address] [place] [address] Performed By: #### 1 9123-9, 59413-5 ####[facility]ATORYCLIA [id number] [place] [address] [place] ALLIED HEALTHon 06-23-2021 ALLIED HEALTH Normal [facility] Basic metabolic 2000 panelon 06-23-2021 Anion gap [Moles/Vol] 9 mmol/L Normal 9-18 [facility] Comment on above: Order Comment: Speci men Type: BLOOD SPECIMENOrdering Facility: [facility] Address: [address] [place] [address] Performed By: #### 1 9123-9, 59445-3 ####[facility]ATORYCLIA [id number] [place] [address] [place] Calcium [Mass/Vol] 8.4 mg/dL Low 8.5-10.2 [facility] Comment on above: Order Comment: Speci men Type: BLOOD SPECIMENOrdering Facility: [facility] Address: [address] [place] [address] Performed By: #### 1 9123-9, 33133-2 ####[facility]ATORYCLIA [id number] [place] [address] [place] Chloride [Moles/Vol] 104 mmol/L Normal 97-105 [facility] Comment on above: Order Comment: Speci men Type: BLOOD SPECIMENOrdering Facility: [facility] Address: [address] [place] [address] Performed By: #### 1 9123-9, 38947-7 ####[facility]ATORYCLIA [id number] [place] [address] [place] CO2 [Moles/Vol] 26 mmol/L Normal 22-30 [facility] Comment on above: Order Comment: Speci men Type: BLOOD SPECIMENOrdering Facility: [facility] Address: [address] [place] [address] Performed By: #### 1 9123-9, 50395-2 ####[facility]ATORYCLIA [id number] [place] [address] [place] Creatinine [Mass/Vol] 0.62 mg/dL Low 0.73-1.22 [facility] Comment on above: Order Comment: Speci men Type: BLOOD SPECIMENOrdering Facility: [facility] Address: [address] [place] [address] Performed By: #### 1 9123-9, 65465-6 ####[facility]ATORYCLIA [id number] [address] [place] GFR/1.73 sq M.predicted MDRD (S/P/Bld) [Vol rate/Area] mL/min/{1.73_m2} Normal [facility] Comment on above: Order Comment: Speci men Type: BLOOD SPECIMENOrdering Facility: [facility] Address: [address] [place] [address] Result Comment: >60e GFR (Estimated GFR) Units [...] actual GFR. Performed By: #### 1 9123-9, 00000-3 ####[facility]ORATORYCLIA [id number] [place] [address] [place] Glucose [Mass/Vol] 111 mg/dL High 74-99 [facility] Comment on above: Order Comment: Speci men Type: BLOOD SPECIMENOrdering Facility: [facility] Address: [address] [place], [place] [id number] Result Comment: The [place] [employer] (ADA) provides guidance for cutoff [...] Standards of Medical Care in Diabetes 2016, [place] [employer]. Diabetes Care. 2016.39(Suppl 1). Performed By: #### 1 9123-9, 38582-7 ####[facility]ATORYCLIA [id number] [place] [address] [place] Potassium [Moles/Vol] 4.1 mmol/L Normal 3.7-5.1 [facility] Comment on above: Order Comment: Johni men Type: BLOOD SPECIMENOrdering Facility: [facility] Address: [address] [place] [address] Performed By: #### 1 9123-9, 26094-9 ####[facility]ATORYCLIA [id number] [place] [address] [place] Sodium [Moles/Vol] 139 mmol/L Normal 136-144 [facility] Comment on above: Order Comment: Speci men Type: BLOOD SPECIMENOrdering Facility: [facility] Address: [address] Performed By: #### 1 9123-9, 09179-1 ####[facility]ATORYCLIA [id number] [place] [address] [place] Urea nitrogen [Mass/Vol] 26 mg/dL High 9-24 [facility] Comment on above: Order Comment: Speci men Type: BLOOD SPECIMENOrdering Facility: [facility] Address: [address] [place] [address] Performed By: #### 1 9123-9, 03452-1 ####[facility]ATORYCLIA [id number] [address] [place] CASE MANAGEMon 06-23-2021 CASE MANAGEM Normal [facility] CBC panel Auto (Bld)on 06-23 Erythrocyte distribution width (RBC) [Ratio] 16.0 % High 11.5-15.0 [facility] Comment on above: Order Comment: Speci men Type: BLOOD SPECIMENOrdering Facility: [facility] Address: [address] [place] [address] Performed By: #### 5 8410-2 ####[facility]ATORYCLIA [id number] [address] [place] Hematocrit (Bld) [Volume fraction] 31.1 % Low 39.0-51.0 [facility] Comment on above: Order Comment: Speci men Type: BLOOD SPECIMENOrdering Facility: [facility] Address: [address] [place] [address] Performed By: #### 5 8410-2 ####[facility]ATORYCLIA [id number] [address] STATES [facility] Hemoglobin (Bld) [Mass/Vol] 9.5 g/dL Low 13.0-17.0 [facility] Comment on above: Order Comment: Speci men Type: BLOOD SPECIMENOrdering Facility: [facility] Address: [address] [place] [address] Performed By: #### 5 8410-2 ####[facility]ATORYCLIA [id number] [address] [place] MCH (RBC) [Entitic mass] 28.1 pg Normal 26.0-34.0 [facility] Comment on above: Order Comment: Speci men Type: BLOOD SPECIMENOrdering Facility: [facility] Address: [address] [place] [address] Performed By: #### 5 8410-2 ####[facility]ITALCL[facility] [id number] [address] STATES [facility] MCHC (RBC) [Mass/Vol] 30.5 g/dL Normal 30.5-36.0 [facility] Comment on above: Order Comment: Speci men Type: BLOOD SPECIMENOrdering Facility: [facility] Address: [address] [place] [address] Performed By: #### 5 8410-2 ####[facility]ATORYCLIA [id number] [address] MCV (RBC) [Entitic vol] 92.0 fL Normal 80.0-100.0 [facility] Comment on above: Order Comment: Speci men Type: BLOOD SPECIMENOrdering Facility: [facility] Address: [address] [place] [address] Performed By: #### 5 8410-2 ####[facility]ATORYCLIA [id number] [address] Nucleated RBC (Bld) [#/Vol] 10*3/uL Normal <0.01 [facility] Comment on above: Order Comment: Speci men Type: BLOOD SPECIMENOrdering Facility: [facility] Address: [address] [place] [address] Performed By: #### 5 8410-2 ####[facility]ATORYCLIA [id number] [address] [place] Platelet mean volume (Bld) [Entitic vol] 11.0 fL Normal 9.0-12.7 [facility] Comment on above: Order Comment: Speci men Type: BLOOD SPECIMENOrdering Facility: [facility] Address: [address] [place] [address] Performed By: #### 5 8410-2 ####[facility]ATORYCLIA [id number] [address] [place] Platelets (Bld) [#/Vol] 361 10*3/uL Normal 150-400 [facility] Comment on above: Order Comment: Speci men Type: BLOOD SPECIMENOrdering Facility: [facility] Address: [address] [place] [address] Performed By: #### 5 8410-2 ####[facility]ATORYCLIA [id number] [address] RBC (Bld) [#/Vol] 3.38 10*6/uL Low 4.20-6.00 [facility] Comment on above: Order Comment: Speci men Type: BLOOD SPECIMENOrdering Facility: [facility] Address: [address] [place] [address] Performed By: #### 5 8410-2 ####[facility]ATORYCLIA [id number] [address] WBC (Bld) [#/Vol] 9.02 10*3/uL Normal 3.70-11.00 [facility] Comment on above: Order Comment: Speci men Type: BLOOD SPECIMENOrdering Facility: [facility] Address: [address] [place] [address] Performed By: #### 5 8410-2 ####[facility]ATORYCLIA [id number] [address] CONSULT PROGon 06-23-2021 CONSULT PROG Normal [facility] CONSULT PROG Normal [facility] Magnesium SerPl-mCncon 06-23 Magnesium [Mass/Vol] 2.4 mg/dL High 1.7-2.3 [facility] Comment on above: Order Comment: Speci men Type: BLOOD SPECIMENOrdering Facility: [facility] Address: [address] [place] [address] Performed By: #### 1 9123-9, 21211-2 ####[facility]ATORYCLIA [id number] [address] THERAPY NTon 06-23-2021 THERAPY NT Normal [facility] Vancomycin random [Mass/Vol] on 06-23-2021 Vancomycin [Mass/Vol] 22.8 ug/mL High 10.0-20.0 [facility] Comment on above: Order Comment: Speci men Type: BLOOD SPECIMENOrdering Facility: [facility] Address: [address] [place] [address] Result Comment: Refe rence ranges and high/low indicator flags are provided as general guidelines only. The treating physician must determine appropriate target levels/dosing based on the specific clinical situation. Performed By: #### 4 091-5 ####[facility]ATORYCLIA [id number] [place] [address] [place] XR MOD BARIUM SWALLOW W SPEE Lore 06-23-2021 XR MOD BARIUM SWALLOW W SPEECH Normal [facility] Basic metabolic 2000 panelon 06-22-2021 Anion gap [Moles/Vol] 6 mmol/L Low 9-18 [facility] Comment on above: Order Comment: Speci men Type: BLOOD SPECIMENOrdering Facility: [facility] Address: [address] [place] [address] Performed By: #### 2 432-, ####[facility]ATORYCLIA [id number] [place] [address] [place] Calcium [Mass/Vol] 8.5 mg/dL Normal 8.5-10.2 [facility] Comment on above: Order Comment: Speci men Type: BLOOD SPECIMENOrdering Facility: [facility] Address: [address] [place] [address] Performed By: #### 2 432-2, ####[facility]ATORYCLIA [id number] [place] [address] [place] Chloride [Moles/Vol] 105 mmol/L Normal 97-105 [facility] Comment on above: Order Comment: Speci men Type: BLOOD SPECIMENOrdering Facility: [facility] Address: [address] [place] [address] Performed By: #### 2 432-2, ####[facility]ATORYCLIA [id number] [place] [address] [place] CO2 [Moles/Vol] 26 mmol/L Normal 22-30 [facility] Comment on above: Order Comment: Speci men Type: BLOOD SPECIMENOrdering Facility: [facility] Address: [address] [place] [address] Performed By: #### 2 432-, ####[facility]ORATORYCLIA [id number] [place] [id number] [place] Creatinine [Mass/Vol] 0.56 mg/dL Low 0.73-1.22 [facility] Comment on above: Order Comment: Speci men Type: BLOOD SPECIMENOrdering Facility: [facility] Address: [address] [place] [address] Performed By: #### 2 43205-08, ####[facility]ATORYCLIA [id number] [address] [place] GFR/1.73 sq M.predicted MDRD (S/P/Bld) [Vol rate/Area] mL/min/{1.73_m2} Normal [facility] Comment on above: Order Comment: Speci men Type: BLOOD SPECIMENOrdering Facility: [facility] Address: [address] [place] [address] Result Comment: >60e GFR (Estimated GFR) Units [...] actual GFR. Performed By: #### 2 43205-08, ####[facility]ATORYCLIA [id number] [place] [address] [place] Glucose [Mass/Vol] 120 mg/dL High 74-99 [facility] Comment on above: Order Comment: Speci men Type: BLOOD SPECIMENOrdering Facility: [facility] Address: [address] [id number] Result Comment: The [place] [employer] (ADA) provides guidance for cutoff [...] Standards of Medical Care in Diabetes 2016, [place] [employer]. Diabetes Care. 2016.39(Suppl 1). Performed By: #### 2 4320-06, ####[facility]ATORYCLIA [id number] [place] [address] [place] Potassium [Moles/Vol] 4.0 mmol/L Normal 3.7-5.1 [facility] Comment on above: Order Comment: [facility] Type: BLOOD SPECIMENOrdering Facility: [facility] Address: [address] [id number] Performed By: #### 2 4320-06, ####[facility]ATORYCLIA [id number] [place] [address] [place] Sodium [Moles/Vol] 137 mmol/L Normal 136-144 [facility] Comment on above: Order Comment: Johni men Type: BLOOD SPECIMENOrdering Facility: [facility] Address: [address] [id number] Performed By: #### 2 4320-06, ####[facility]ATORYCLIA [id number] [place] [address] [place] Urea nitrogen [Mass/Vol] 25 mg/dL High 9-24 [facility] Comment on above: Order Comment: Johni men Type: BLOOD SPECIMENOrdering Facility: [facility] Address: [address] [address] Performed By: #### 2 4321-2, 31977-6 ####[facility]ORATORYCLIA [id number] [address] OF [facility] CASE MANAGEMon 06-22-2021 CASE MANAGEM Normal [facility] CBC panel Auto (Bld)on 06-22 Erythrocyte distribution width (RBC) [Ratio] 16.0 % High 11.5-15.0 [facility] Comment on above: Order Comment: Speci men Type: BLOOD SPECIMENOrdering Facility: [facility] Address: [address] [place] [address] Performed By: #### 5 8410-2 ####[facility]ATORYCLIA [id number] [address] Hematocrit (Bld) [Volume fraction] 30.5 % Low 39.0-51.0 [facility] Comment on above: Order Comment: Speci men Type: BLOOD SPECIMENOrdering Facility: [facility] Address: [address] [place] [address] Performed By: #### 5 8410-2 ####[facility]ATORYCLIA [id number] [address] Hemoglobin (Bld) [Mass/Vol] 9.3 g/dL Low 13.0-17.0 [facility] Comment on above: Order Comment: Speci men Type: BLOOD SPECIMENOrdering Facility: [facility] Address: [address] [place] [address] Performed By: #### 5 8410-2 ####[facility]ATORYCLIA [id number] [address] STATES [facility] MCH (RBC) [Entitic mass] 28.4 pg Normal 26.0-34.0 [facility] Comment on above: Order Comment: Speci men Type: BLOOD SPECIMENOrdering Facility: [facility] Address: [address] [address] Performed By: #### 5 8410-2 ####[facility]ATORYCLIA [id number] [address] STATES OF [facility] MCHC (RBC) [Mass/Vol] 30.5 g/dL Normal 30.5-36.0 [facility] Comment on above: Order Comment: Speci men Type: BLOOD SPECIMENOrdering Facility: [facility] Address: [address] [place] [address] Performed By: #### 5 8410-2 ####[facility]ATORYCLIA [id number] [address] MCV (RBC) [Entitic vol] 93.3 fL Normal 80.0-100.0 [facility] Comment on above: Order Comment: Speci men Type: BLOOD SPECIMENOrdering Facility: [facility] Address: [address] [place] [address] Performed By: #### 5 8410-2 ####[facility]ATORYCLIA [id number] [address] Nucleated RBC (Bld) [#/Vol] 10*3/uL Normal <0.01 [facility] Comment on above: Order Comment: Speci men Type: BLOOD SPECIMENOrdering Facility: [facility] Address: [address] [place] [address] Performed By: #### 5 8410-2 ####[facility]ATORYCLIA [id number] [address] [place] Platelet mean volume (Bld) [Entitic vol] 11.5 fL Normal 9.0-12.7 [facility] Comment on above: Order Comment: Speci men Type: BLOOD SPECIMENOrdering Facility: [facility] Address: [address] [place] [address] Performed By: #### 5 8410-2 ####[facility]ATORYCLIA [id number] [address] [place] Platelets (Bld) [#/Vol] 346 10*3/uL Normal 150-400 [facility] Comment on above: Order Comment: Speci men Type: BLOOD SPECIMENOrdering Facility: [facility] Address: [address] [place] [address] Performed By: #### 5 8410-2 ####[facility]ATORYCLIA [id number] [address] OF [facility] RBC (Bld) [#/Vol] 3.27 10*6/uL Low 4.20-6.00 [facility] Comment on above: Order Comment: Speci men Type: BLOOD SPECIMENOrdering Facility: [facility] Address: [address] [place] [address] Performed By: #### 5 8410-2 ####[facility]ATORYCLIA [id number] [address] OF [facility] WBC (Bld) [#/Vol] 9.44 10*3/uL Normal 3.70-11.00 [facility] Comment on above: Order Comment: Speci men Type: BLOOD SPECIMENOrdering Facility: [facility] Address: [address] [place] [address] Performed By: #### 5 8410-2 ####[facility]ATORYCLIA [id number] [address] [place] HEMOGLOBIN (HGB)on Hemoglobin (Bld) [Mass/Vol] 9.7 g/dL Low 13.0-17.0 [facility] Comment on above: Order Comment: Speci men Type: BLOOD SPECIMENOrdering Facility: [facility] Address: [address] [place] [address] Performed By: #### H GB ####[facility]ORATORYCLIA [id number] [address] Magnesium SerPl-mCncon 06-22 Magnesium [Mass/Vol] 2.4 mg/dL High 1.7-2.3 [facility] Comment on above: Order Comment: Speci men Type: BLOOD SPECIMENOrdering Facility: [facility] Address: [address] [place] [address] Performed By: #### 2 4321-2, ####[facility]ORYCLIA [id number] [address] OF [facility] THERAPY NTon 06-22-2021 THERAPY NT Normal [facility] THERAPY NT Normal [facility] aPTT PPPon 06-22-2021 aPTT Coag (PPP) [Time] 62.3 s High 23.0-32.4 [facility] Comment on above: Order Comment: Speci men Type: BLOOD SPECIMENOrdering Facility: [facility] Address: [address] [place] [address] Performed By: #### 1 4979-9 ####[facility]ATORYCLIA [id number] [address] [place] ALLIED HEALTHon 06-21-2021 ALLIED HEALTH Normal [facility] Basic metabolic 2000 panelon 06-21-2021 Anion gap [Moles/Vol] 8 mmol/L Low 9-18 [facility] Comment on above: Order Comment: Speci men Type: BLOOD SPECIMENOrdering Facility: [facility] Address: [address] [place] [address] Performed By: #### 2 4321-2, 64923-8 ####[facility]ATORYCLIA [id number] [address] STATES OF [facility] Calcium [Mass/Vol] 8.2 mg/dL Low 8.5-10.2 [facility] Comment on above: Order Comment: Speci men Type: BLOOD SPECIMENOrdering Facility: [facility] Address: [address] [address] Performed By: #### 2 4321-2, 37579-2 ####[facility] LABORATORYCLIA [id number] [address] [place] [facility] Chloride [Moles/Vol] 108 mmol/L High 97-105 [facility] Comment on above: Order Comment: Speci men Type: BLOOD SPECIMENOrdering Facility: [facility] Address: [address] [address] Performed By: #### 2 43205-08, ####[facility] LABORATORYCLIA [id number] [place] [address] [place] CO2 [Moles/Vol] 24 mmol/L Normal 22-30 [facility] Comment on above: Order Comment: Speci men Type: BLOOD SPECIMENOrdering Facility: [facility] Address: [address] [place] [address] Performed By: #### 2 4320-06, ####[facility] HOSPITALCLIA [id number] [place] [address] [place] Creatinine [Mass/Vol] 0.61 mg/dL Low 0.73-1.22 [facility] Comment on above: Order Comment: Speci men Type: BLOOD SPECIMENOrdering Facility: [facility] Address: [address] [place] [address] Performed By: #### 2 4320-06, ####[facility]PITALCLIA [id number] [place] [address] [place] GFR/1.73 sq M.predicted MDRD (S/P/Bld) [Vol rate/Area] mL/min/{1.73_m2} Normal [facility] Comment on above: Order Comment: Speci men Type: BLOOD SPECIMENOrdering Facility: [facility] Address: [address] [place] [address] Result Comment: >60e GFR (Estimated GFR) Units [...] actual GFR. Performed By: #### 2 43205-08, ####[facility]ATORYCLIA [id number] [place] [address] [place] Glucose [Mass/Vol] 211 mg/dL High 74-99 [facility] Comment on above: Order Comment: Speci men Type: BLOOD SPECIMENOrdering Facility: [facility] Address: [address] [place] [address] Result Comment: The [place] [employer] (ADA) provides guidance for cutoff [...] Standards of Medical Care in Diabetes 2016, [place] [employer]. Diabetes Care. 2016.39(Suppl 1). Performed By: #### 2 432 ####[facility]ORATORYCLIA [id number] [place] [address] [place] Potassium [Moles/Vol] 4.3 mmol/L Normal 3.7-5.1 [facility] Comment on above: Order Comment: Shira feldman Type: BLOOD SPECIMENOrdering Facility: [facility] Address: [address] [place] [address] Performed By: #### 2 ####[facility]ATORYCLIA [id number] [place] [address] [place] Sodium [Moles/Vol] 140 mmol/L Normal 136-144 [facility] Comment on above: Order Comment: Johni men Type: BLOOD SPECIMENOrdering Facility: [facility] Address: [address] [place] [address] Performed By: #### 2 ####[facility]ATORYCLIA [id number] [place] [address] [place] Urea nitrogen [Mass/Vol] 26 mg/dL High 9-24 [facility] Comment on above: Order Comment: Speci men Type: BLOOD SPECIMENOrdering Facility: [facility] Address: [address] [place] [address] Performed By: #### 2 4321-2, 34073-7 ####[facility]ATORYCLIA [id number] [address] STATES OF [facility] CBC panel Auto (Bld)on 06-21 Erythrocyte distribution width (RBC) [Ratio] 16.1 % High 11.5-15.0 [facility] Comment on above: Order Comment: Speci men Type: BLOOD SPECIMENOrdering Facility: [facility] Address: [address] [place] [address] Performed By: #### 5 8410-2 ####[facility]ORATORYCLIA [id number] [address] STATES OF [facility] Hematocrit (Bld) [Volume fraction] 29.7 % Low 39.0-51.0 [facility] Comment on above: Order Comment: Speci men Type: BLOOD SPECIMENOrdering Facility: [facility] Address: [address] [place] [address] Performed By: #### 5 8410-2 ####[facility]ATORYCLIA [id number] [address] STATES OF [facility] Hemoglobin (Bld) [Mass/Vol] 9.2 g/dL Low 13.0-17.0 [facility] Comment on above: Order Comment: Speci men Type: BLOOD SPECIMENOrdering Facility: [facility] Address: [address] [place] [address] Performed By: #### 5 8410-2 ####[facility]ORATORYCLIA [id number] [address] STATES OF [facility] MCH (RBC) [Entitic mass] 28.8 pg Normal 26.0-34.0 [facility] Comment on above: Order Comment: Speci men Type: BLOOD SPECIMENOrdering Facility: [facility] Address: [address] [address] Performed By: #### 5 8410-2 ####[facility]ORATORYCLIA [id number] [address] MCHC (RBC) [Mass/Vol] 31.0 g/dL Normal 30.5-36.0 [facility] Comment on above: Order Comment: Speci men Type: BLOOD SPECIMENOrdering Facility: [facility] Address: [address] [place] [address] Performed By: #### 5 8410-2 ####[facility]ATORYCLIA [id number] [address] MCV (RBC) [Entitic vol] 93.1 fL Normal 80.0-100.0 [facility] Comment on above: Order Comment: Speci men Type: BLOOD SPECIMENOrdering Facility: [facility] Address: [address] [place] [address] Performed By: #### 5 8410-2 ####[facility]ATORYCLIA [id number] [address] Nucleated RBC (Bld) [#/Vol] 10*3/uL Normal <0.01 [facility] Comment on above: Order Comment: Speci men Type: BLOOD SPECIMENOrdering Facility: [facility] Address: [address] [place] [address] Performed By: #### 5 8410-2 ####[facility]ATORYCLIA [id number] [address] Platelet mean volume (Bld) [Entitic vol] 11.6 fL Normal 9.0-12.7 [facility] Comment on above: Order Comment: Speci men Type: BLOOD SPECIMENOrdering Facility: [facility] Address: [address] [place] [address] Performed By: #### 5 8410-2 ####[facility]ATORYCLIA [id number] [address] Platelets (Bld) [#/Vol] 347 10*3/uL Normal 150-400 [facility] Comment on above: Order Comment: Speci men Type: BLOOD SPECIMENOrdering Facility: [facility] Address: [address] [place] [address] Performed By: #### 5 8410-2 ####[facility]ATORYCLIA [id number] [place] [address] [place] RBC (Bld) [#/Vol] 3.19 10*6/uL Low 4.20-6.00 [facility] Comment on above: Order Comment: Speci men Type: BLOOD SPECIMENOrdering Facility: [facility] Address: [address] [place] [address] Performed By: #### 5 8410-2 ####[facility]ATORYCLIA [id number] [address] WBC (Bld) [#/Vol] 10.29 10*3/uL Normal 3.70-11.00 [facility] Comment on above: Order Comment: Speci men Type: BLOOD SPECIMENOrdering Facility: [facility] Address: [address] [place] [address] Performed By: #### 5 8410-2 ####[facility]ORATORYCLIA [id number] [address] CONSULT PROGon 06-21-2021 CONSULT PROG Normal [facility] CONSULT PROG Normal [facility] Magnesium SerPl-mCncon 06-21 Magnesium [Mass/Vol] 2.5 mg/dL High 1.7-2.3 [facility] Comment on above: Order Comment: Speci men Type: BLOOD SPECIMENOrdering Facility: [facility] Address: [address] [place] [address] Performed By: #### 2 4321-2, 93909-4 ####[facility]ORATORYCLIA [id number] [address] [place] NUTRITIONon 06-21-2021 NUTRITION Normal [facility] XR CHEST 1V FRONTALon 2021 XR CHEST 1V FRONTAL Normal [facility] aPTT PPPon 06-21-2021 aPTT Coag (PPP) [Time] 68.5 s High 23.0-32.4 [facility] Comment on above: Order Comment: Speci men Type: BLOOD SPECIMENOrdering Facility: [facility] Address: [address] [place] [address] Performed By: #### 1 4979-9 ####[facility]ATORYCLIA [id number] [address] [place] aPTT Coag (PPP) [Time] 57.8 s High 23.0-32.4 [facility] Comment on above: Order Comment: Speci men Type: BLOOD SPECIMENOrdering Facility: [facility] Address: [address] [place] [address] Performed By: #### 1 4979-9 ####[facility]ATORYCLIA [id number] [place] [address] [place] Basic metabolic 2000 panelon 06-20-2021 Anion gap [Moles/Vol] 9 mmol/L Normal 9-18 [facility] Comment on above: Order Comment: Speci men Type: BLOOD SPECIMENOrdering Facility: [facility] Address: [address] [place] [address] Performed By: #### 2 4321-2, 07756-0 ####[facility]ATORYCLIA [id number] [place] [address] [place] Calcium [Mass/Vol] 8.3 mg/dL Low 8.5-10.2 [facility] Comment on above: Order Comment: Speci men Type: BLOOD SPECIMENOrdering Facility: [facility] Address: [address] [place] [address] Performed By: #### 2 4321-2, 26902-3 ####[facility]ATORYCLIA [id number] [place] [address] [place] Chloride [Moles/Vol] 111 mmol/L High 97-105 [facility] Comment on above: Order Comment: Speci men Type: BLOOD SPECIMENOrdering Facility: [facility] Address: [address] [place] [address] Performed By: #### 2 432-2, ####[facility]ATORYCLIA [id number] [address] STATES OF [facility] CO2 [Moles/Vol] 24 mmol/L Normal 22-30 [facility] Comment on above: Order Comment: Speci men Type: BLOOD SPECIMENOrdering Facility: [facility] Address: [address] [place] [address] Performed By: #### 2 4321-2, ####[facility]ATORYCLIA [id number] [address] Creatinine [Mass/Vol] 0.64 mg/dL Low 0.73-1.22 [facility] Comment on above: Order Comment: Speci men Type: BLOOD SPECIMENOrdering Facility: [facility] Address: [address] [place] [address] Performed By: #### 2 43205-08, ####[facility]ATORYCLIA [id number] [address] [place] GFR/1.73 sq M.predicted MDRD (S/P/Bld) [Vol rate/Area] mL/min/{1.73_m2} Normal [facility] Comment on above: Order Comment: Speci men Type: BLOOD SPECIMENOrdering Facility: [facility] Address: [address] [place] [address] Result Comment: >60e GFR (Estimated GFR) Units [...] actual GFR. Performed By: #### 2 432-, ####[facility]ATORYCLIA [id number] [place] [address] [place] Glucose [Mass/Vol] 114 mg/dL High 74-99 [facility] Comment on above: Order Comment: Shira [facility] Type: BLOOD SPECIMENOrdering Facility: [facility] Address: [address] [place] [address] Result Comment: The [place] [employer] (ADA) provides guidance for cutoff [...] Standards of Medical Care in Diabetes 2016, [place] [employer]. Diabetes Care. 2016.39(Suppl 1). Performed By: #### 2 432-, ####[facility]ATORYCLIA [id number] [place] [address] [place] Potassium [Moles/Vol] 4.1 mmol/L Normal 3.7-5.1 [facility] Comment on above: Order Comment: Shira feldman Type: BLOOD SPECIMENOrdering Facility: [facility] Address: [address] Performed By: #### 2 432-, ####[facility]ATORYCLIA [id number] [place] [address] [place] Sodium [Moles/Vol] 144 mmol/L Normal 136-144 [facility] Comment on above: Order Comment: Shira feldman Type: BLOOD SPECIMENOrdering Facility: [facility] Address: [address] [address] Performed By: #### 2 4321-2, 50402-7 ####[facility]ORATORYCLIA [id number] [place] [address] [place] Urea nitrogen [Mass/Vol] 27 mg/dL High 9-24 [facility] Comment on above: Order Comment: Speci men Type: BLOOD SPECIMENOrdering Facility: [facility] Address: [address] [place] [address] Performed By: #### 2 4321-2, ####[facility]ATORYCLIA [id number] [address] [place] CASE MANAGEMon 06-20-2021 CASE MANAGEM Normal [facility] CBC panel Auto (Bld)on 06-20 Erythrocyte distribution width (RBC) [Ratio] 15.9 % High 11.5-15.0 [facility] Comment on above: Order Comment: Speci men Type: BLOOD SPECIMENOrdering Facility: [facility] Address: [address] [place] [address] Performed By: #### 5 8410-2 ####[facility]ATORYCLIA [id number] [address] [place] Hematocrit (Bld) [Volume fraction] 31.0 % Low 39.0-51.0 [facility] Comment on above: Order Comment: Speci men Type: BLOOD SPECIMENOrdering Facility: [facility] Address: [address] [place] [address] Performed By: #### 5 8410-2 ####[facility]ATORYCLIA [id number] [address] [place] Hemoglobin (Bld) [Mass/Vol] 9.2 g/dL Low 13.0-17.0 [facility] Comment on above: Order Comment: Speci men Type: BLOOD SPECIMENOrdering Facility: [facility] Address: [address] [place] [address] Performed By: #### 5 8410-2 ####[facility]ATORYCLIA [id number] [place] [address] [place] MCH (RBC) [Entitic mass] 27.4 pg Normal 26.0-34.0 [facility] Comment on above: Order Comment: Speci men Type: BLOOD SPECIMENOrdering Facility: [facility] Address: [address] [place] [address] Performed By: #### 5 8410-2 ####[facility]ATORYCLIA [id number] [address] MCHC (RBC) [Mass/Vol] 29.7 g/dL Low 30.5-36.0 [facility] Comment on above: Order Comment: Speci men Type: BLOOD SPECIMENOrdering Facility: [facility] Address: [address] [place] [address] Performed By: #### 5 8410-2 ####[facility]ATORYCLIA [id number] [address] MCV (RBC) [Entitic vol] 92.3 fL Normal 80.0-100.0 [facility] Comment on above: Order Comment: Speci men Type: BLOOD SPECIMENOrdering Facility: [facility] Address: [address] [place] [address] Performed By: #### 5 8410-2 ####[facility]ATORYCLIA [id number] [address] Nucleated RBC (Bld) [#/Vol] 10*3/uL Normal <0.01 [facility] Comment on above: Order Comment: Speci men Type: BLOOD SPECIMENOrdering Facility: [facility] Address: [address] [place] [address] Performed By: #### 5 8410-2 ####[facility]ATORYCLIA [id number] [address] Platelet mean volume (Bld) [Entitic vol] 11.5 fL Normal 9.0-12.7 [facility] Comment on above: Order Comment: Speci men Type: BLOOD SPECIMENOrdering Facility: [facility] Address: [address] [place] [address] Performed By: #### 5 8410-2 ####[facility]ATORYCLIA [id number] [address] Platelets (Bld) [#/Vol] 343 10*3/uL Normal 150-400 [facility] Comment on above: Order Comment: Speci men Type: BLOOD SPECIMENOrdering Facility: [facility] Address: [address] [place] [address] Performed By: #### 5 8410-2 ####[facility]ORATORYCLIA [id number] [address] OF [facility] RBC (Bld) [#/Vol] 3.36 10*6/uL Low 4.20-6.00 [facility] Comment on above: Order Comment: Speci men Type: BLOOD SPECIMENOrdering Facility: [facility] Address: [address] [place] [address] Performed By: #### 5 8410-2 ####[facility]ATORYCLIA [id number] [address] WBC (Bld) [#/Vol] 10.71 10*3/uL Normal 3.70-11.00 [facility] Comment on above: Order Comment: Speci men Type: BLOOD SPECIMENOrdering Facility: [facility] Address: [address] [place] [address] Performed By: #### 5 8410-2 ####[facility]ATORYCLIA [id number] [address] CONSULT PROGon 06-20-2021 CONSULT PROG Normal [facility] HEMOGLOBIN (HGB)on 2 Hemoglobin (Bld) [Mass/Vol] 9.7 g/dL Low 13.0-17.0 [facility] Comment on above: Order Comment: Speci men Type: BLOOD SPECIMENOrdering Facility: [facility] Address: [address] [place] [address] Performed By: #### H GB ####[facility]ORATORYCLIA [id number] [address] Magnesium SerPl-mCncon 06-20 Magnesium [Mass/Vol] 2.5 mg/dL High 1.7-2.3 [facility] Comment on above: Order Comment: Speci men Type: BLOOD SPECIMENOrdering Facility: [facility] Address: [address] [place] [address] Performed By: #### 2 4321-2, 63840-1 ####[facility]ATORYCLIA [id number] [address] NURSING PROGon 06-20-2021 NURSING PROG Normal [facility] THERAPY NTon 06-20-2021 THERAPY NT Normal [facility] aPTT PPPon 06-20-2021 aPTT Coag (PPP) [Time] 93.5 s High 23.0-32.4 [facility] Comment on above: Order Comment: Speci men Type: BLOOD SPECIMENOrdering Facility: [facility] Address: [address] [place] [address] Performed By: #### 1 4979-9 ####[facility]ATORYCLIA [id number] [address] aPTT Coag (PPP) [Time] 47.1 s High 23.0-32.4 [facility] Comment on above: Order Comment: Speci men Type: BLOOD SPECIMENOrdering Facility: [facility] Address: [address] [place] [address] Performed By: #### 1 4979-9 ####[facility]ORATORYCLIA [id number] [address] [place] Basic metabolic 2000 panelon 06-19-2021 Anion gap [Moles/Vol] 7 mmol/L Low 9-18 [facility] Comment on above: Order Comment: Speci men Type: BLOOD SPECIMENOrdering Facility: [facility] Address: [address] [place] [address] Performed By: #### 2 4321-2 ####[facility]ATORYCLIA [id number] [place] [address] [place] Calcium [Mass/Vol] 8.1 mg/dL Low 8.5-10.2 [facility] Comment on above: Order Comment: Speci men Type: BLOOD SPECIMENOrdering Facility: [facility] Address: [address] [place] [address] Performed By: #### 2 4321-2 ####[facility]ATORYCLIA [id number] [place] [address] [place] Chloride [Moles/Vol] 111 mmol/L High 97-105 [facility] Comment on above: Order Comment: Speci men Type: BLOOD SPECIMENOrdering Facility: [facility] Address: [address] [place] [address] Performed By: #### 2 4321-2 ####[facility]ATORYCLIA [id number] [address] [place] CO2 [Moles/Vol] 24 mmol/L Normal 22-30 [facility] Comment on above: Order Comment: Speci men Type: BLOOD SPECIMENOrdering Facility: [facility] Address: [address] [place] [address] Performed By: #### 2 4321-2 ####[facility]ORATORYCLIA [id number] [place] [address] [place] Creatinine [Mass/Vol] 0.71 mg/dL Low 0.73-1.22 [facility] Comment on above: Order Comment: Speci men Type: BLOOD SPECIMENOrdering Facility: [facility] Address: [address] [place] [address] Performed By: #### 2 4321-2 ####[facility]ATORYCLIA [id number] [place] [address] [place] GFR/1.73 sq M.predicted MDRD (S/P/Bld) [Vol rate/Area] mL/min/{1.73_m2} Normal [facility] Comment on above: Order Comment: Speci men Type: BLOOD SPECIMENOrdering Facility: [facility] Address: [address] [id number] Result Comment: >60e GFR (Estimated GFR) Units [...] actual GFR. Performed By: #### 2 4321-2 ####[facility]ORATORYCLIA [id number] [place] [address] [place] Glucose [Mass/Vol] 110 mg/dL High 74-99 [facility] Comment on above: Order Comment: Shira feldman Type: BLOOD SPECIMENOrdering Facility: [facility] Address: [address] [place] [address] Result Comment: The [place] [employer] (ADA) provides guidance for cutoff [...] Standards of Medical Care in Diabetes 2016, [place] [employer]. Diabetes Care. 2016.39(Suppl 1). Performed By: #### 2 4321-2 ####[facility]ORATORYCLIA [id number] [place] [address] [place] Potassium [Moles/Vol] 3.7 mmol/L Normal 3.7-5.1 [facility] Comment on above: Order Comment: Shira francia Type: BLOOD SPECIMENOrdering Facility: [facility] Address: [address] [place] [address] Performed By: #### 2 4321-2 ####[facility]ORATORYCLIA [id number] [address] STATES [facility] Sodium [Moles/Vol] 142 mmol/L Normal 136-144 [facility] Comment on above: Order Comment: Speci men Type: BLOOD SPECIMENOrdering Facility: [facility] Address: [address] [place] [address] Performed By: #### 2 4321-2 ####[facility]ORATORYCLIA [id number] [address] [place] Urea nitrogen [Mass/Vol] 26 mg/dL High 9-24 [facility] Comment on above: Order Comment: Speci men Type: BLOOD SPECIMENOrdering Facility: [facility] Address: [address] [place] [address] Performed By: #### 2 4321-2 ####[facility]ORATORYCLIA [id number] [address] STATES OF [facility] CBC panel Auto (Bld)on 06-19 Erythrocyte distribution width (RBC) [Ratio] 15.7 % High 11.5-15.0 [facility] Comment on above: Order Comment: Speci men Type: BLOOD SPECIMENOrdering Facility: [facility] Address: [address] [place] [address] Performed By: #### 5 8410-2 ####[facility]ORATORYCLIA [id number] [address] Hematocrit (Bld) [Volume fraction] 30.9 % Low 39.0-51.0 [facility] Comment on above: Order Comment: Speci men Type: BLOOD SPECIMENOrdering Facility: [facility] Address: [address] [place] [address] Performed By: #### 5 8410-2 ####[facility]ORATORYCLIA [id number] [address] Hemoglobin (Bld) [Mass/Vol] 9.5 g/dL Low 13.0-17.0 [facility] Comment on above: Order Comment: Speci men Type: BLOOD SPECIMENOrdering Facility: [facility] Address: [address] [place] [address] Performed By: #### 5 8410-2 ####[facility]ORATORYCLIA [id number] [address] STATES [facility] MCH (RBC) [Entitic mass] 28.4 pg Normal 26.0-34.0 [facility] Comment on above: Order Comment: Speci men Type: BLOOD SPECIMENOrdering Facility: [facility] Address: [address] [place] [address] Performed By: #### 5 8410-2 ####[facility]ORATORYCLIA [id number] [address] STATES OF [facility] MCHC (RBC) [Mass/Vol] 30.7 g/dL Normal 30.5-36.0 [facility] Comment on above: Order Comment: Speci men Type: BLOOD SPECIMENOrdering Facility: [facility] Address: [address] [place] [address] Performed By: #### 5 8410-2 ####[facility]ORATORYCLIA [id number] [address] STATES [facility] MCV (RBC) [Entitic vol] 92.2 fL Normal 80.0-100.0 [facility] Comment on above: Order Comment: Speci men Type: BLOOD SPECIMENOrdering Facility: [facility] Address: [address] [place] [address] Performed By: #### 5 8410-2 ####[facility]ORATORYCLIA [id number] [address] Nucleated RBC (Bld) [#/Vol] 10*3/uL Normal <0.01 [facility] Comment on above: Order Comment: Speci men Type: BLOOD SPECIMENOrdering Facility: [facility] Address: [address] [place] [address] Performed By: #### 5 8410-2 ####[facility]ORATORYCLIA [id number] [address] [place] [facility] Platelet mean volume (Bld) [Entitic vol] 11.7 fL Normal 9.0-12.7 [facility] Comment on above: Order Comment: Speci men Type: BLOOD SPECIMENOrdering Facility: [facility] Address: [address] [place] [address] Performed By: #### 5 8410-2 ####[facility] LABORATORYCLIA [id number] [address] [place] Platelets (Bld) [#/Vol] 323 10*3/uL Normal 150-400 [facility] Comment on above: Order Comment: Speci men Type: BLOOD SPECIMENOrdering Facility: [facility] Address: [address] [place] [address] Performed By: #### 5 8410-2 ####[facility] LABORATORYCLIA [id number] [address] [place] RBC (Bld) [#/Vol] 3.35 10*6/uL Low 4.20-6.00 [facility] Comment on above: Order Comment: Speci men Type: BLOOD SPECIMENOrdering Facility: [facility] Address: [address] [place] [address] Performed By: #### 5 8410-2 ####[facility]ORATORYCLIA [id number] [address] [place] WBC (Bld) [#/Vol] 9.53 10*3/uL Normal 3.70-11.00 [facility] Comment on above: Order Comment: Speci men Type: BLOOD SPECIMENOrdering Facility: [facility] Address: [address] [place] [address] Performed By: #### 5 8410-2 ####[facility]ORATORYCLIA [id number] [address] [place] HEMOGLOBIN (HGB)on 2 Hemoglobin (Bld) [Mass/Vol] 9.7 g/dL Low 13.0-17.0 [facility] Comment on above: Order Comment: Speci men Type: BLOOD SPECIMENOrdering Facility: [facility] Address: [address] [place] [address] Performed By: #### H GB ####[facility]ORATORYCLIA [id number] [address] Magnesium SerPl-mCncon 06-19 Magnesium [Mass/Vol] 2.5 mg/dL High 1.7-2.3 [facility] Comment on above: Order Comment: Speci men Type: BLOOD SPECIMENOrdering Facility: [facility] Address: [address] [place] [address] Performed By: #### 1 9123-9, 2777-1 ####[facility]ATORYCLIA [id number] [address] NURSING PROGon 06-19-2021 NURSING PROG Normal [facility] Phosphate SerPl-mCncon 06-19 Phosphate [Mass/Vol] 2.6 mg/dL Low 2.7-4.8 [facility] Comment on above: Order Comment: Speci men Type: BLOOD SPECIMENOrdering Facility: [facility] Address: [address] [place] [address] Performed By: #### 1 9123-9, 2777-1 ####[facility]ATORYCLIA [id number] [address] aPTT PPPon 06-19-2021 aPTT Coag (PPP) [Time] 61.9 s High 23.0-32.4 [facility] Comment on above: Order Comment: Speci men Type: BLOOD SPECIMENOrdering Facility: [facility] Address: [address] [place] [address] Performed By: #### 1 4979-9 ####[facility]ATORYCLIA [id number] [address] aPTT Coag (PPP) [Time] 68.6 s High 23.0-32.4 [facility] Comment on above: Order Comment: Speci men Type: BLOOD SPECIMENOrdering Facility: [facility] Address: [address] [place] [address] Performed By: #### 1 4979-9 ####[facility]ATORYCLIA [id number] [place] [address] [place] aPTT Coag (PPP) [Time] 83.2 s High 23.0-32.4 [facility] Comment on above: Order Comment: Speci men Type: BLOOD SPECIMENOrdering Facility: [facility] Address: [address] [place] [address] Performed By: #### 1 4979-9 ####[facility]ATORYCLIA [id number] [place] [address] [place] Basic metabolic 2000 panelon 06-18-2021 Anion gap [Moles/Vol] 7 mmol/L Low 9-18 [facility] Comment on above: Order Comment: Speci men Type: BLOOD SPECIMENOrdering Facility: [facility] Address: [address] [place] [address] Performed By: #### 2 4321-2, , 2776-05 ####[facility]PITALCLIA [id number] [place] [address] [place] Calcium [Mass/Vol] 8.2 mg/dL Low 8.5-10.2 [facility] Comment on above: Order Comment: Speci men Type: BLOOD SPECIMENOrdering Facility: [facility] Address: [address] [place] [address] Performed By: #### 2 4321-2, , 2777 ####[facility]ORATORYCLIA [id number] [address] [place] Chloride [Moles/Vol] 115 mmol/L High 97-105 [facility] Comment on above: Order Comment: Speci men Type: BLOOD SPECIMENOrdering Facility: [facility] Address: [address] [place], [place] [address] Performed By: #### 2 4321-2, , 2776-05 ####[facility]ORATORYCLIA [id number] [place] [id number] [place] [facility] CO2 [Moles/Vol] 23 mmol/L Normal 22-30 [facility] Comment on above: Order Comment: Shira feldman Type: BLOOD SPECIMENOrdering Facility: [facility] Address: [address] [place] [address] Performed By: #### 2 4321-2, , 2776-05 ####[facility]ATORYCLIA [id number] [address] [place] Creatinine [Mass/Vol] 0.70 mg/dL Low 0.73-1.22 [facility] Comment on above: Order Comment: Shira feldman Type: BLOOD SPECIMENOrdering Facility: [facility] Address: [address] [place] [address] Performed By: #### 2 4321-2, , 2776-05 ####[facility]ATORYCLIA [id number] [place] [address] [place] GFR/1.73 sq M.predicted MDRD (S/P/Bld) [Vol rate/Area] mL/min/{1.73_m2} Normal [facility] Comment on above: Order Comment: Shira feldman Type: BLOOD SPECIMENOrdering Facility: [facility] Address: [address] [place] [address] Result Comment: >60e GFR (Estimated GFR) Units [...] Performed By: #### 2 4321-2, , 2776-05 ####[facility]ATORYCLIA [id number] [place] [address] [place] Glucose [Mass/Vol] 105 mg/dL High 74-99 [facility] Comment on above: Order Comment: Speci men Type: BLOOD SPECIMENOrdering Facility: [facility] Address: [address] [place] [address] Result Comment: The [place] [employer] (ADA) provides guidance for cutoff [...] Standards of Medical Care in Diabetes 2016, [place] [employer]. Diabetes Care. 2016.39(Suppl 1). Performed By: #### 2 4321-2, , 2776-05 ####[facility]ATORYCLIA [id number] [place] [address] [place] Potassium [Moles/Vol] 4.1 mmol/L Normal 3.7-5.1 [facility] Comment on above: Order Comment: Speci men Type: BLOOD SPECIMENOrdering Facility: [facility] Address: [address] [id number] Performed By: #### 2 4321-2, , 2776-05 ####[facility]ORATORYCLIA [id number] [place] [address] [place] Sodium [Moles/Vol] 145 mmol/L High 136-144 [facility] Comment on above: Order Comment: Speci men Type: BLOOD SPECIMENOrdering Facility: [facility] Address: [address] [place] [address] Performed By: #### 2 4321-2, , 2776- ####[facility]ORATORYCLIA [id number] [address] STATES [facility] Urea nitrogen [Mass/Vol] 27 mg/dL High 9- [facility] Comment on above: Order Comment: Speci men Type: BLOOD SPECIMENOrdering Facility: [facility] Address: [address] [place] [address] Performed By: #### 2 4321-2, , 2776-05 ####[facility]ORATORYCLIA [id number] [address] STATES OF [facility] CALCIUM IONIZED Bon 06-18-19 Calcium.ionized (BldV) [Mass/Vol] 1.22 mmol/L Normal 1.08-1.30 [facility] Comment on above: Order Comment: Speci men Type: BLOOD SPECIMENOrdering Facility: [facility] Address: [address] [place] [address] Performed By: #### I CA ####[facility] HOSPITALCLIA [id number] [address] Calcium.ionized adjusted to pH 7.4 (Bld) [Moles/Vol] 1.23 mmol/L Normal 1.08-1.30 [facility] Comment on above: Order Comment: Speci men Type: BLOOD SPECIMENOrdering Facility: [facility] Address: [address] [place] [address] Performed By: #### I CA ####[facility]ORATORYCLIA [id number] [address] [place] CBC panel Auto (Bld)on 06-18 Erythrocyte distribution width (RBC) [Ratio] 15.8 % High 11.5-15.0 [facility] Comment on above: Order Comment: Speci men Type: BLOOD SPECIMENOrdering Facility: [facility] Address: [address] [place] [address] Performed By: #### 5 8410-2 ####[facility]ORATORYCLIA [id number] [address] OF [facility] Hematocrit (Bld) [Volume fraction] 29.5 % Low 39.0-51.0 [facility] Comment on above: Order Comment: Speci men Type: BLOOD SPECIMENOrdering Facility: [facility] Address: [address] [place] [address] Performed By: #### 5 8410-2 ####[facility]ORATORYCLIA [id number] [address] STATES OF [facility] Hemoglobin (Bld) [Mass/Vol] 8.8 g/dL Low 13.0-17.0 [facility] Comment on above: Order Comment: Speci men Type: BLOOD SPECIMENOrdering Facility: [facility] Address: [address] [place] [address] Performed By: #### 5 8410-2 ####[facility]ORATORYCLIA [id number] [address] MCH (RBC) [Entitic mass] 27.4 pg Normal 26.0-34.0 [facility] Comment on above: Order Comment: Speci men Type: BLOOD SPECIMENOrdering Facility: [facility] Address: [address] [place] [address] Performed By: #### 5 8410-2 ####[facility]ORATORYCLIA [id number] [address] [place] MCHC (RBC) [Mass/Vol] 29.8 g/dL Low 30.5-36.0 [facility] Comment on above: Order Comment: Speci men Type: BLOOD SPECIMENOrdering Facility: [facility] Address: [address] [place] [address] Performed By: #### 5 8410-2 ####[facility]ORATORYCLIA [id number] [address] [place] MCV (RBC) [Entitic vol] 91.9 fL Normal 80.0-100.0 [facility] Comment on above: Order Comment: Speci men Type: BLOOD SPECIMENOrdering Facility: [facility] Address: [address] Performed By: #### 5 8410-2 ####[facility]ORATORYCLIA [id number] [address] Nucleated RBC (Bld) [#/Vol] 10*3/uL Normal <0.01 [facility] Comment on above: Order Comment: Speci men Type: BLOOD SPECIMENOrdering Facility: [facility] Address: [address] [place] [address] Performed By: #### 5 8410-2 ####[facility]ORATORYCLIA [id number] [address] Platelet mean volume (Bld) [Entitic vol] 11.9 fL Normal 9.0-12.7 [facility] Comment on above: Order Comment: Speci men Type: BLOOD SPECIMENOrdering Facility: [facility] Address: [address] [place] [address] Performed By: #### 5 8410-2 ####[facility]ORATORYCLIA [id number] [address] Platelets (Bld) [#/Vol] 291 10*3/uL Normal 150-400 [facility] Comment on above: Order Comment: Speci men Type: BLOOD SPECIMENOrdering Facility: [facility] Address: [address] [place] [address] Performed By: #### 5 8410-2 ####[facility]ATORYCLIA [id number] [address] RBC (Bld) [#/Vol] 3.21 10*6/uL Low 4.20-6.00 [facility] Comment on above: Order Comment: Speci men Type: BLOOD SPECIMENOrdering Facility: [facility] Address: [address] [place] [address] Performed By: #### 5 8410-2 ####[facility]ORATORYCLIA [id number] [address] [place] WBC (Bld) [#/Vol] 10.19 10*3/uL Normal 3.70-11.00 [facility] Comment on above: Order Comment: Speci men Type: BLOOD SPECIMENOrdering Facility: [facility] Address: [address] [place] [address] Performed By: #### 5 8410-2 ####[facility]ORATORYCLIA [id number] [address] [place] FERRITIN BLDon 06-18-2021 Ferritin [Mass/Vol] 600.9 ng/mL High 30.3-565.7 [facility] Comment on above: Order Comment: Speci men Type: BLOOD SPECIMENOrdering Facility: [facility] Address: [address] [place] [address] Performed By: #### S ERFOL, IRON, FERR ####[facility]ATORYCLIA [id number] [address] FOLATE SERUMon 06-18-2021 Folate [Mass/Vol] 14.3 ng/mL Normal >4.7 [facility] Comment on above: Order Comment: Speci men Type: BLOOD SPECIMENOrdering Facility: [facility] Address: [address] [place] [address] Performed By: #### S ERFOL, IRON, FERR ####[facility]ATORYCLIA [id number] [address] Gas and Carbon monoxide pane l (BldV)on 06-18-2021 Base excess Calc (BldV) [Moles/Vol] 0.5 mmol/L Normal 0-2 [facility] Comment on above: Order Comment: Speci men Type: VENOUS BLOOD SPECIMENOrdering Facility: [facility] Address: [address] [place] [address] Performed By: #### 2 4344-4 ####[facility]ORATORYCLIA [id number] [address] Body temperature 97.34 [degF] Normal [facility] Comment on above: Order Comment: Speci men Type: VENOUS BLOOD SPECIMENOrdering Facility: [facility] Address: [address] [place] [address] Performed By: #### 2 4344-4 ####[facility]ORATORYCLIA [id number] [address] OF [facility] CALCIUM IONIZED, PH CORRECTED 1.26 mmol/L Normal 1.08-1.30 [facility] Comment on above: Order Comment: Speci men Type: VENOUS BLOOD SPECIMENOrdering Facility: [facility] Address: [address] [place] [address] Performed By: #### 2 4344-4 ####[facility]ATORYCLIA [id number] [address] STATES OF [facility] Calcium.ionized (BldV) [Mass/Vol] 1.25 mmol/L Normal 1.08-1.30 [facility] Comment on above: Order Comment: Speci men Type: VENOUS BLOOD SPECIMENOrdering Facility: [facility] Address: [address] [place] [address] Performed By: #### 2 4344-4 ####[facility]ORATORYCLIA [id number] [address] OF [facility] Carboxyhemoglobin (BldV) [Mass fraction] 1.5 % Normal 0.0-2.0 [facility] Comment on above: Order Comment: Speci men Type: VENOUS BLOOD SPECIMENOrdering Facility: [facility] Address: [address] [place] [address] Result Comment: Carb oxyhemoglobin Reference Range for Smokers: 2.0-8.0% Performed By: #### 2 4344-4 ####[facility]ATORYCLIA [id number] [address] [place] CO2 (BldV) [Partial pressure] 38 mm[Hg] Low 42-55 [facility] Comment on above: Order Comment: Speci men Type: VENOUS BLOOD SPECIMENOrdering Facility: [facility] Address: [address] [place] [address] Performed By: #### 2 4344-4 ####[facility]ATORYCLIA [id number] [address] [place] CO2 [Moles/Vol] 22.9 mmol/L Low 25-29 [facility] Comment on above: Order Comment: Speci men Type: VENOUS BLOOD SPECIMENOrdering Facility: [facility] Address: [address] [place] [address] Performed By: #### 2 4344-4 ####[facility]ATORYCLIA [id number] [address] [place] CO2 adjusted to patient's actual temperature (BldV) [Partial pressure] 37 mmHg Low 42-55 [facility] Comment on above: Order Comment: Speci men Type: VENOUS BLOOD SPECIMENOrdering Facility: [facility] Address: [address] [place] [address] Performed By: #### 2 4344-4 ####[facility]ATORYCLIA [id number] [address] OF [facility] Glucose [Mass/Vol] 103 mg/dL Normal 60-105 [facility] Comment on above: Order Comment: Speci men Type: VENOUS BLOOD SPECIMENOrdering Facility: [facility] Address: [address] [place] [address] Performed By: #### 2 4344-4 ####[facility]ATORYCLIA [id number] [address] [place] HCO3 (Bld) [Moles/Vol] 24.4 mmol/L Normal 24-28 [facility] Comment on above: Order Comment: Speci men Type: VENOUS BLOOD SPECIMENOrdering Facility: [facility] Address: [address] [place] [address] Performed By: #### 2 4344-4 ####[facility]ATORYCLIA [id number] [address] [place] Hematocrit (Bld) [Volume fraction] 28.7 % Low 39.0-51.0 [facility] Comment on above: Order Comment: Speci men Type: VENOUS BLOOD SPECIMENOrdering Facility: [facility] Address: [address] [place] [address] Performed By: #### 2 4344-4 ####[facility]ORYCLIA [id number] [address] [place] Hemoglobin (Bld) [Mass/Vol] 9.3 g/dL Low 13.0-17.0 [facility] Comment on above: Order Comment: Speci men Type: VENOUS BLOOD SPECIMENOrdering Facility: [facility] Address: [address] [place] [address] Performed By: #### 2 4344-4 ####[facility]ATORYCLIA [id number] [address] Methemoglobin (Bld) [Mass fraction] % Normal 0.0-1.5 [facility] Comment on above: Order Comment: Speci men Type: VENOUS BLOOD SPECIMENOrdering Facility: [facility] Address: [address] [place] [address] Performed By: #### 2 4344-4 ####[facility]ORATORYCLIA [id number] [address] O2 THERAPY Ventilator Normal [facility] Comment on above: Order Comment: Speci men Type: VENOUS BLOOD SPECIMENOrdering Facility: [facility] Address: [address] [place] [address] Performed By: #### 2 4344-4 ####[facility]ATORYCLIA [id number] [address] Oxygen (BldV) [Partial pressure] 37 mm[Hg] Normal 35-45 [facility] Comment on above: Order Comment: Speci men Type: VENOUS BLOOD SPECIMENOrdering Facility: [facility] Address: [address] [place] [address] Performed By: #### 2 4344-4 ####[facility]ATORYCLIA [id number] [address] Oxygen adjusted to patient's actual temperature (BldV) [Partial pressure] 35.1 mmHg Normal 35-45 [facility] Comment on above: Order Comment: Speci men Type: VENOUS BLOOD SPECIMENOrdering Facility: [facility] Address: [address] [place] [address] Performed By: #### 2 4344-4 ####[facility]ORYCLIA [id number] [address] [place] Oxygen saturation in Blood 67.1 % Normal 60-85 [facility] Comment on above: Order Comment: Speci men Type: VENOUS BLOOD SPECIMENOrdering Facility: [facility] Address: [address] [place] [address] Performed By: #### 2 4344-4 ####[facility]ATORYCLIA [id number] [address] [place] Oxyhemoglobin (BldV) [Mass fraction] 66 % Normal 60-85 [facility] Comment on above: Order Comment: Speci men Type: VENOUS BLOOD SPECIMENOrdering Facility: [facility] Address: [address] [place] [address] Performed By: #### 2 4344-4 ####[facility]ORYCLIA [id number] [address] [place] pH (BldV) 7.42 [pH] Normal 7.32-7.42 [facility] Comment on above: Order Comment: Speci men Type: VENOUS BLOOD SPECIMENOrdering Facility: [facility] Address: [address] [place] [address] Performed By: #### 2 4344-4 ####[facility]ATORYCLIA [id number] [address] [place] pH adjusted to patient's actual temperature (BldV) 7.43 High 7.32-7.42 [facility] Comment on above: Order Comment: Speci men Type: VENOUS BLOOD SPECIMENOrdering Facility: [facility] Address: [address] [place] [address] Performed By: #### 2 4344-4 ####[facility]ORATORYCLIA [id number] [place] [address] [place] Potassium [Moles/Vol] 4.0 mmol/L Normal 3.5-5.0 [facility] Comment on above: Order Comment: Speci men Type: VENOUS BLOOD SPECIMENOrdering Facility: [facility] Address: [address] [place] [address] Performed By: #### 2 4344-4 ####[facility]ORATORYCLIA [id number] [address] [place] Sodium [Moles/Vol] 146 mmol/L High 136-144 [facility] Comment on above: Order Comment: Speci men Type: VENOUS BLOOD SPECIMENOrdering Facility: [facility] Address: [address] [place] [address] Performed By: #### 2 4344-4 ####[facility]ORATORYCLIA [id number] [place] [address] [place] HEMOGLOBIN (HGB)on Hemoglobin (Bld) [Mass/Vol] 9.2 g/dL Low 13.0-17.0 [facility] Comment on above: Order Comment: Speci men Type: BLOOD SPECIMENOrdering Facility: [facility] Address: [address] [place] [address] Performed By: #### H GB ####[facility]ORATORYCLIA [id number] [address] [place] IRON + TIBCon 06-18-2021 Iron [Mass/Vol] 27 ug/dL Low 41-186 [facility] Comment on above: Order Comment: Speci men Type: BLOOD SPECIMENOrdering Facility: [facility] Address: [address] [place] [address] Performed By: #### S ERFOL, IRON, FERR ####[facility]ORATORYCLIA [id number] [address] [place] Iron binding capacity [Mass/Vol] 141 ug/dL Low 232-386 [facility] Comment on above: Order Comment: Speci men Type: BLOOD SPECIMENOrdering Facility: [facility] Address: [address] [place] [address] Performed By: #### S ERFOL, IRON, FERR ####[facility]ORATORYCLIA [id number] [address] OF [facility] Iron saturation [Mass fraction] 19 % Normal 15-57 [facility] Comment on above: Order Comment: Speci men Type: BLOOD SPECIMENOrdering Facility: [facility] Address: [address] [place] [address] Performed By: #### S ERFOL, IRON, FERR ####[facility]ORATORYCLIA [id number] [address] OF [facility] Magnesium SerPl-mCncon 06-18 Magnesium [Mass/Vol] 2.5 mg/dL High 1.7-2.3 [facility] Comment on above: Order Comment: Speci men Type: BLOOD SPECIMENOrdering Facility: [facility] Address: [address] [place] [address] Performed By: #### 2 4321-2, , 2776-05 ####[facility]ATORYCLIA [id number] [address] [place] NURSING PROGon 06-18-2021 NURSING PROG Normal [facility] Phosphate SerPl-mCncon 06-18 Phosphate [Mass/Vol] 3.0 mg/dL Normal 2.7-4.8 [facility] Comment on above: Order Comment: Speci men Type: BLOOD SPECIMENOrdering Facility: [facility] Address: [address] [place] [address] Performed By: #### 2 4321-2, 33231-6, 27711-04 ####[facility]ATORYCLIA [id number] [address] [place] THERAPY NTon 06-18-2021 THERAPY NT Normal [facility] aPTT PPPon 06-18-2021 aPTT Coag (PPP) [Time] 43.0 s High 23.0-32.4 [facility] Comment on above: Order Comment: Speci men Type: BLOOD SPECIMENOrdering Facility: [facility] Address: [address] [place] [address] Performed By: #### 1 4979-9 ####[facility]ORATORYCLIA [id number] [address] [place] [facility] aPTT Coag (PPP) [Time] 60.6 s High 23.0-32.4 [facility] Comment on above: Order Comment: Speci men Type: BLOOD SPECIMENOrdering Facility: [facility] Address: [address] [place] [address] Performed By: #### 1 4979-9 ####[facility]ITALCLIA [id number] [address] [place] [facility] aPTT Coag (PPP) [Time] 46.4 s High 23.0-32.4 [facility] Comment on above: Order Comment: Speci men Type: BLOOD SPECIMENOrdering Facility: [facility] Address: [address] [place] [address] Performed By: #### 1 4979-9 ####[facility]ORATORYCLIA [id number] [place] [address] [place] Basic metabolic 2000 panelon 06-17-2021 Anion gap [Moles/Vol] 7 mmol/L Low 9-18 [facility] Comment on above: Order Comment: Speci men Type: BLOOD SPECIMENOrdering Facility: [facility] Address: [address] [place] [address] Performed By: #### 2 951-2, 12332-5, 2777-1, 48484-4 ####[facility] LABORATORYCLIA [id number] [address] STATES OF [facility] Calcium [Mass/Vol] 8.1 mg/dL Low 8.5-10.2 [facility] Comment on above: Order Comment: Speci men Type: BLOOD SPECIMENOrdering Facility: [facility] Address: [address] [place] [address] Performed By: #### 2 951-2, 90286-3, 277-1, 12786-7 ####[facility]ORATORYCLIA [id number] [place] [address] [place] Chloride [Moles/Vol] 113 mmol/L High 97-105 [facility] Comment on above: Order Comment: Speci men Type: BLOOD SPECIMENOrdering Facility: [facility] Address: [address] [place] [address] Performed By: #### 2 951-2, 96342-4, 2776-1, 67979-2 ####[facility]ORATORYCLIA [id number] [place] [address] [place] CO2 [Moles/Vol] 25 mmol/L Normal 22-30 [facility] Comment on above: Order Comment: Speci men Type: BLOOD SPECIMENOrdering Facility: [facility] Address: [address] [place] [address] Performed By: #### 2 951-2, 45494-1, 2776-1, 93368-0 ####[facility]ORATORYCLIA [id number] [place] [address] [place] Creatinine [Mass/Vol] 0.70 mg/dL Low 0.73-1.22 [facility] Comment on above: Order Comment: Speci men Type: BLOOD SPECIMENOrdering Facility: [facility] Address: [address] [place] [address] Performed By: #### 2 951-2, 98829-3, 2776-1, 81691-4 ####[facility]ORATORYCLIA [id number] [place] [address] [place] GFR/1.73 sq M.predicted MDRD (S/P/Bld) [Vol rate/Area] mL/min/{1.73_m2} Normal [facility] Comment on above: Order Comment: Speci men Type: BLOOD SPECIMENOrdering Facility: [facility] Address: [address] [place] [address] [place] [address] Result Comment: >60e GFR (Estimated GFR) Units [...] actual GFR. Performed By: #### 2 951-2, 46160-7, 2777-1, 48736-1 ####[facility]OSPITALCLIA [id number] [place] [address] [place] Glucose [Mass/Vol] 122 mg/dL High 74-99 [facility] Comment on above: Order Comment: Shira feldman Type: BLOOD SPECIMENOrdering Facility: [facility] Address: [address] [place], [place] [address] [address] Result Comment: The [place] [employer] (ADA) provides guidance for cutoff [...] Standards of Medical Care in Diabetes 2016, [place] [employer]. Diabetes Care. 2016.39(Suppl 1). Performed By: #### 2 951-2, 10099-1, 2777-1, 32708-7 ####[facility]ORATORYCLIA [id number] [place] [id number] [place] Potassium [Moles/Vol] 3.5 mmol/L Low 3.7-5.1 [facility] Comment on above: Order Comment: Speci men Type: BLOOD SPECIMENOrdering Facility: [facility] Address: [address] [place] [address] Performed By: #### 2 951-2, 68376-0, 2777-, 12593-6 ####[facility]ORATORYCLIA [id number] [place] [address] [place] Urea nitrogen [Mass/Vol] 27 mg/dL High 9-24 [facility] Comment on above: Order Comment: Speci men Type: BLOOD SPECIMENOrdering Facility: [facility] Address: [address] [place] [address] Performed By: #### 2 951-2, 80176-3, 2777-, 83019-5 ####[facility]ORATORYCLIA [id number] [address] [place] CASE MANAGEMon 06-17-2021 CASE MANAGEM Normal [facility] CBC panel Auto (Bld)on 06-17 Erythrocyte distribution width (RBC) [Ratio] 15.9 % High 11.5-15.0 [facility] Comment on above: Order Comment: Speci men Type: BLOOD SPECIMENOrdering Facility: [facility] Address: [address] [place] [address] Performed By: #### 5 8410-2 ####[facility]ORATORYCLIA [id number] [address] [place] Hematocrit (Bld) [Volume fraction] 28.9 % Low 39.0-51.0 [facility] Comment on above: Order Comment: Speci men Type: BLOOD SPECIMENOrdering Facility: [facility] Address: [address] [place] [address] Performed By: #### 5 8410-2 ####[facility]ORATORYCLIA [id number] [address] [place] Hemoglobin (Bld) [Mass/Vol] 8.8 g/dL Low 13.0-17.0 [facility] Comment on above: Order Comment: Speci men Type: BLOOD SPECIMENOrdering Facility: [facility] Address: [address] [place] [address] Performed By: #### 5 8410-2 ####[facility]ORATORYCLIA [id number] [address] MCH (RBC) [Entitic mass] 28.4 pg Normal 26.0-34.0 [facility] Comment on above: Order Comment: Speci men Type: BLOOD SPECIMENOrdering Facility: [facility] Address: [address] [place] [address] Performed By: #### 5 8410-2 ####[facility]ORATORYCLIA [id number] [address] MCHC (RBC) [Mass/Vol] 30.4 g/dL Low 30.5-36.0 [facility] Comment on above: Order Comment: Speci men Type: BLOOD SPECIMENOrdering Facility: [facility] Address: [address] [place] [address] Performed By: #### 5 8410-2 ####[facility]ORATORYCLIA [id number] [address] STATES [facility] MCV (RBC) [Entitic vol] 93.2 fL Normal 80.0-100.0 [facility] Comment on above: Order Comment: Speci men Type: BLOOD SPECIMENOrdering Facility: [facility] Address: [address] [place] [address] Performed By: #### 5 8410-2 ####[facility]ORATORYCLIA [id number] [address] Nucleated RBC (Bld) [#/Vol] 10*3/uL Normal <0.01 [facility] Comment on above: Order Comment: Speci men Type: BLOOD SPECIMENOrdering Facility: [facility] Address: [address] [place] [address] Performed By: #### 5 8410-2 ####[facility]ORATORYCLIA [id number] [address] Platelet mean volume (Bld) [Entitic vol] 11.9 fL Normal 9.0-12.7 [facility] Comment on above: Order Comment: Speci men Type: BLOOD SPECIMENOrdering Facility: [facility] Address: [address] [place] [address] Performed By: #### 5 8410-2 ####[facility]ORATORYCLIA [id number] [address] OF [facility] Platelets (Bld) [#/Vol] 257 10*3/uL Normal 150-400 [facility] Comment on above: Order Comment: Speci men Type: BLOOD SPECIMENOrdering Facility: [facility] Address: [address] [place] [address] Performed By: #### 5 8410-2 ####[facility]ORATORYCLIA [id number] [address] [place] RBC (Bld) [#/Vol] 3.10 10*6/uL Low 4.20-6.00 [facility] Comment on above: Order Comment: Speci men Type: BLOOD SPECIMENOrdering Facility: [facility] Address: [address] [place] [address] Performed By: #### 5 8410-2 ####[facility]ORATORYCLIA [id number] [address] STATES OF [facility] WBC (Bld) [#/Vol] 10.54 10*3/uL Normal 3.70-11.00 [facility] Comment on above: Order Comment: Speci men Type: BLOOD SPECIMENOrdering Facility: [facility] Address: [address] [place] [address] Performed By: #### 5 8410-2 ####[facility]ORATORYCLIA [id number] [address] HEMOGLOBIN (HGB)on 2 Hemoglobin (Bld) [Mass/Vol] 8.8 g/dL Low 13.0-17.0 [facility] Comment on above: Order Comment: Speci men Type: BLOOD SPECIMENOrdering Facility: [facility] Address: [address] [place] [address] Performed By: #### H GB ####[facility]ORATORYCLIA [id number] [address] [place] Magnesium SerPl-mCncon 06-17 Magnesium [Mass/Vol] 2.5 mg/dL High 1.7-2.3 [facility] Comment on above: Order Comment: Speci men Type: BLOOD SPECIMENOrdering Facility: [facility] Address: [address] [place] [address] Performed By: #### 2 951-2, 87907-1, 27711-04, 63357-3 ####[facility]ATORYCLIA [id number] [address] NURSING PROGon 06-17-2021 NURSING PROG Normal [facility] NURSING PROG Normal [facility] NURSING PROG Normal [facility] Phosphate SerPl-mCncon 06-17 Phosphate [Mass/Vol] 1.9 mg/dL Low 2.7-4.8 [facility] Comment on above: Order Comment: Speci men Type: BLOOD SPECIMENOrdering Facility: [facility] Address: [address] [place] [address] Performed By: #### 2 951-2, , 2776-05, 24114-6 ####[facility]ORATORYCLIA [id number] [place] [address] [place] Sodium SerPl-sCncon 06-17-19 22 Sodium [Moles/Vol] 144 mmol/L Normal 136-144 [facility] Comment on above: Order Comment: Speci men Type: BLOOD SPECIMENOrdering Facility: [facility] Address: [address] [place] [address] Performed By: #### 2 951-2 ####[facility]ATORYCLIA [id number] [address] [place] Sodium [Moles/Vol] 145 mmol/L High 136-144 [facility] Comment on above: Order Comment: Speci men Type: BLOOD SPECIMENOrdering Facility: [facility] Address: [address] [place] [address] Performed By: #### 2 951-2, 82244-0, 2777-1, 63947-0 ####[facility]ORATORYCLIA [id number] [place] [address] [place] aPTT PPPon 06-17-2021 aPTT Coag (PPP) [Time] 55.8 s High 23.0-32.4 [facility] Comment on above: Order Comment: Speci men Type: BLOOD SPECIMENOrdering Facility: [facility] Address: [address] [place] [address] Performed By: #### 1 4979-9 ####[facility]ORATORYCLIA [id number] [place] [address] [place] ARTERIAL BLOOD GASESon 06-16 Base excess Calc (Bld) [Moles/Vol] 3 mmol/L High 0-2 [facility] Comment on above: Order Comment: Speci men Type: ARTERIAL BLOOD SPECIMENOrdering Facility: [facility] Address: [address] [place] [address] Performed By: #### A LLBG ####[facility]ORATORYCLIA [id number] [address] [place] Body temperature 99.14 [degF] Normal [facility] Comment on above: Order Comment: Speci men Type: ARTERIAL BLOOD SPECIMENOrdering Facility: [facility] Address: [address] [place] [address] Performed By: #### A LLBG ####[facility]ORATORYCLIA [id number] [address] [place] CALCIUM IONIZED, PH CORRECTED 1.21 mmol/L Normal 1.08-1.30 [facility] Comment on above: Order Comment: Speci men Type: ARTERIAL BLOOD SPECIMENOrdering Facility: [facility] Address: [address] [place] [address] Performed By: #### A LLBG ####[facility]ORATORYCLIA [id number] [address] Calcium.ionized (BldV) [Mass/Vol] 1.17 mmol/L Normal 1.08-1.30 [facility] Comment on above: Order Comment: Speci men Type: ARTERIAL BLOOD SPECIMENOrdering Facility: [facility] Address: [address] [place] [address] Performed By: #### A LLBG ####[facility]ORATORYCLIA [id number] [address] Carboxyhemoglobin (BldA) [Mass fraction] 1.4 % Normal 0.0-2.0 [facility] Comment on above: Order Comment: Speci men Type: ARTERIAL BLOOD SPECIMENOrdering Facility: [facility] Address: [address] [place] [address] Result Comment: Carb oxyhemoglobin Reference Range for Smokers: 2.0-8.0% Performed By: #### A LLBG ####[facility]ORATORYCLIA [id number] [address] [place] CO2 (Bld) [Partial pressure] 38 mm Hg Normal 36-46 [facility] Comment on above: Order Comment: Speci men Type: ARTERIAL BLOOD SPECIMENOrdering Facility: [facility] Address: [address] [place] [address] Performed By: #### A LLBG ####[facility]ORATORYCLIA [id number] [address] CO2 [Moles/Vol] 24.5 mmol/L Normal 22-28 [facility] Comment on above: Order Comment: Speci men Type: ARTERIAL BLOOD SPECIMENOrdering Facility: [facility] Address: [address] [place] [address] Performed By: #### A LLBG ####[facility]ORATORYCLIA [id number] [address] [place] CO2 adjusted to patient's actual temperature (Bld) [Partial pressure] 38 mmHg Normal 36-46 [facility] Comment on above: Order Comment: Speci men Type: ARTERIAL BLOOD SPECIMENOrdering Facility: [facility] Address: [address] [place] [address] Performed By: #### A LLBG ####[facility]ORATORYCLIA [id number] [address] [place] Glucose [Mass/Vol] 147 mg/dL High 60-105 [facility] Comment on above: Order Comment: Speci men Type: ARTERIAL BLOOD SPECIMENOrdering Facility: [facility] Address: [address] [place] [address] Performed By: #### A LLBG ####[facility]ORATORYCLIA [id number] [address] [place] HCO3 (Bld) [Moles/Vol] 27 mmol/L High 22-26 [facility] Comment on above: Order Comment: Speci men Type: ARTERIAL BLOOD SPECIMENOrdering Facility: [facility] Address: [address] [place] [address] Performed By: #### A LLBG ####[facility]ORATORYCLIA [id number] [address] [place] Hematocrit (Bld) [Volume fraction] 31.8 % Low 39.0-51.0 [facility] Comment on above: Order Comment: Speci men Type: ARTERIAL BLOOD SPECIMENOrdering Facility: [facility] Address: [address] [place] [address] Performed By: #### A LLBG ####[facility]ORATORYCLIA [id number] [place] [address] [place] Hemoglobin (Bld) [Mass/Vol] 10.3 g/dL Low 13.0-17.0 [facility] Comment on above: Order Comment: Speci men Type: ARTERIAL BLOOD SPECIMENOrdering Facility: [facility] Address: [address] [place] [address] Performed By: #### A LLBG ####[facility]ATORYCLIA [id number] [address] Methemoglobin (Bld) [Mass fraction] 1.0 % Normal 0.0-1.5 [facility] Comment on above: Order Comment: Speci men Type: ARTERIAL BLOOD SPECIMENOrdering Facility: [facility] Address: [address] [place] [address] Performed By: #### A LLBG ####[facility] LABORATORYCLIA [id number] [address] O2 THERAPY Ventilator Normal [facility] Comment on above: Order Comment: Speci men Type: ARTERIAL BLOOD SPECIMENOrdering Facility: [facility] Address: [address] [place] [address] Performed By: #### A LLBG ####[facility]ATORYCLIA [id number] [address] Oxygen (Bld) [Partial pressure] 78 mm Hg Low 85-95 [facility] Comment on above: Order Comment: Speci men Type: ARTERIAL BLOOD SPECIMENOrdering Facility: [facility] Address: [facility] [place] [address] Performed By: #### A LLBG ####[facility]ORATORYCLIA [id number] [address] Oxygen adjusted to patient's actual temperature (Bld) [Partial pressure] 79.7 mmHg Low 85-95 [facility] Comment on above: Order Comment: Speci men Type: ARTERIAL BLOOD SPECIMENOrdering Facility: [facility] Address: [address] [place] [address] Performed By: #### A LLBG ####[facility]ORATORYCLIA [id number] [address] OXYGEN SATURATION, ARTERIAL 96 % Normal 95-98 [facility] Comment on above: Order Comment: Speci men Type: ARTERIAL BLOOD SPECIMENOrdering Facility: [facility] Address: [address] [place] [address] Performed By: #### A LLBG ####[facility] LABORATORYCLIA [id number] [address] [place] Oxyhemoglobin (BldA) [Mass fraction] 94 % Low 95-98 [facility] Comment on above: Order Comment: Speci men Type: ARTERIAL BLOOD SPECIMENOrdering Facility: [facility] Address: [address] [place] [address] Performed By: #### A LLBG ####[facility]ATORYCLIA [id number] [place] [address] [place] pH (Bld) 7.47 [pH] High 7.35-7.45 [facility] Comment on above: Order Comment: Speci men Type: ARTERIAL BLOOD SPECIMENOrdering Facility: [facility] Address: [address] [place] [address] Performed By: #### A LLBG ####[facility]ATORYCLIA [id number] [address] pH adjusted to patient's actual temperature (Bld) 7.46 High 7.35-7.45 [facility] Comment on above: Order Comment: Speci men Type: ARTERIAL BLOOD SPECIMENOrdering Facility: [facility] Address: [address] [place] [address] Performed By: #### A LLBG ####[facility]ATORYCLIA [id number] [address] [place] Potassium [Moles/Vol] 3.7 mmol/L Normal 3.5-5.0 [facility] Comment on above: Order Comment: Speci men Type: ARTERIAL BLOOD SPECIMENOrdering Facility: [facility] Address: [address] [place] [address] Performed By: #### A LLBG ####[facility]ORATORYCLIA [id number] [address] [place] Sodium [Moles/Vol] 155 mmol/L High 136-144 [facility] Comment on above: Order Comment: Speci men Type: ARTERIAL BLOOD SPECIMENOrdering Facility: [facility] Address: [address] [place], [place] [address] Performed By: #### A LLBG ####[facility]ORATORYCLIA [id number] [address] OF [facility] Bacteria Spec Resp Culton Bacteria identified Respiratory culture Nom (Unsp spec) CULTURE, RESPIRATORY: Rare Normal respiratory chris present ORGANISM ID: 1 Few Yeast, not cryptococcus neoformans GRAM STAIN: No organisms seen Few Polymorphonuclear leukocytes Few Epithelial cells Abnormal [facility] Comment on above: Performed By: #### 3 2355-0 ####[facility]ORATORYCLIA [id number] [place] [address] [place] Basic metabolic 2000 panelon 06-16-2021 Anion gap [Moles/Vol] 9 mmol/L Normal 9-18 [facility] Comment on above: Order Comment: Speci men Type: BLOOD SPECIMENOrdering Facility: [facility] Address: [address] [place] [address] Performed By: #### 2 4321-2 ####[facility]ORATORYCLIA [id number] [place] [address] [place] Calcium [Mass/Vol] 8.4 mg/dL Low 8.5-10.2 [facility] Comment on above: Order Comment: Speci men Type: BLOOD SPECIMENOrdering Facility: [facility] Address: [address] [place] [address] Performed By: #### 2 4321-2 ####[facility]ORATORYCLIA [id number] [place] [address] [place] Chloride [Moles/Vol] 120 mmol/L High 97-105 [facility] Comment on above: Order Comment: Speci men Type: BLOOD SPECIMENOrdering Facility: [facility] Address: [address] [place] [address] Performed By: #### 2 4321-2 ####[facility]ORATORYCLIA [id number] [place] [address] [place] CO2 [Moles/Vol] 27 mmol/L Normal 22-30 [facility] Comment on above: Order Comment: Speci men Type: BLOOD SPECIMENOrdering Facility: [facility] Address: [address] [place] [address] Performed By: #### 2 4321-2 ####[facility]ORATORYCLIA [id number] [place] [address] [place] Creatinine [Mass/Vol] 0.75 mg/dL Normal 0.73-1.22 [facility] Comment on above: Order Comment: Johncara feldman Type: BLOOD SPECIMENOrdering Facility: [facility] Address: [address] [place] [address] Performed By: #### 2 4321-2 ####[facility]ORATORYCLIA [id number] [place] [address] [place] GFR/1.73 sq M.predicted MDRD (S/P/Bld) [Vol rate/Area] mL/min/{1.73_m2} Normal [facility] Comment on above: Order Comment: Shira [facility] Type: BLOOD SPECIMENOrdering Facility: [facility] Address: [address] [place] [address] Result Comment: >60e GFR (Estimated GFR) Units [...] actual GFR. Performed By: #### 2 4321-2 ####[facility]ORATORYCLIA [id number] [address] [place] Glucose [Mass/Vol] 160 mg/dL High 74-99 [facility] Comment on above: Order Comment: Shira feldman Type: BLOOD SPECIMENOrdering Facility: [facility] Address: [address] [place] [address] Result Comment: The [place] [employer] (ADA) provides guidance for cutoff [...] Standards of Medical Care in Diabetes 2016, [place] [employer]. Diabetes Care. 2016.39(Suppl 1). Performed By: #### 2 4321-2 ####[facility]ORATORYCLIA [id number] [address] STATES OF [facility] Potassium [Moles/Vol] 3.1 mmol/L Low 3.7-5.1 [facility] Comment on above: Order Comment: Speci men Type: BLOOD SPECIMENOrdering Facility: [facility] Address: [address] [place] [address] Performed By: #### 2 4321-2 ####[facility]ORATORYCLIA [id number] [address] Sodium [Moles/Vol] 156 mmol/L High 136-144 [facility] Comment on above: Order Comment: Speci men Type: BLOOD SPECIMENOrdering Facility: [facility] Address: [address] [place] [address] Performed By: #### 2 4321-2 ####[facility]ORATORYCLIA [id number] [address] STATES [facility] Urea nitrogen [Mass/Vol] 33 mg/dL High 9-24 [facility] Comment on above: Order Comment: Speci men Type: BLOOD SPECIMENOrdering Facility: [facility] Address: [address] [place] [address] Performed By: #### 2 4321-2 ####[facility]ORATORYCLIA [id number] [address] STATES OF [facility] CASE MANAGEMon 06-16-2021 CASE MANAGEM Normal [facility] CBC panel Auto (Bld)on 06-16 Erythrocyte distribution width (RBC) [Ratio] 15.9 % High 11.5-15.0 [facility] Comment on above: Order Comment: Speci men Type: BLOOD SPECIMENOrdering Facility: [facility] Address: [address] [place] [address] Performed By: #### 5 8410-2 ####[facility]ORATORYCLIA [id number] [address] Hematocrit (Bld) [Volume fraction] 34.6 % Low 39.0-51.0 [facility] Comment on above: Order Comment: Speci men Type: BLOOD SPECIMENOrdering Facility: [facility] Address: [address] [place] [address] Performed By: #### 5 8410-2 ####[facility]ORATORYCLIA [id number] [address] Hemoglobin (Bld) [Mass/Vol] 10.2 g/dL Low 13.0-17.0 [facility] Comment on above: Order Comment: Speci men Type: BLOOD SPECIMENOrdering Facility: [facility] Address: [address] [place] [address] Performed By: #### 5 8410-2 ####[facility]ORATORYCLIA [id number] [address] MCH (RBC) [Entitic mass] 28.5 pg Normal 26.0-34.0 [facility] Comment on above: Order Comment: Speci men Type: BLOOD SPECIMENOrdering Facility: [facility] Address: [address] [place] [address] Performed By: #### 5 8410-2 ####[facility] LABORATORYCLIA [id number] [address] [place] MCHC (RBC) [Mass/Vol] 29.5 g/dL Low 30.5-36.0 [facility] Comment on above: Order Comment: Speci men Type: BLOOD SPECIMENOrdering Facility: [facility] Address: [address] [address] Performed By: #### 5 8410-2 ####[facility] LABORATORYCLIA [id number] [address] MCV (RBC) [Entitic vol] 96.6 fL Normal 80.0-100.0 [facility] Comment on above: Order Comment: Speci men Type: BLOOD SPECIMENOrdering Facility: [facility] Address: [address] [place] [address] Performed By: #### 5 8410-2 ####[facility] LABORATORYCLIA [id number] [address] [place] Nucleated RBC (Bld) [#/Vol] 10*3/uL Normal <0.01 [facility] Comment on above: Order Comment: Speci men Type: BLOOD SPECIMENOrdering Facility: [facility] Address: [address] [address] Performed By: #### 5 8410-2 ####[facility]ORATORYCLIA [id number] [address] [place] Platelet mean volume (Bld) [Entitic vol] 11.9 fL Normal 9.0-12.7 [facility] Comment on above: Order Comment: Speci men Type: BLOOD SPECIMENOrdering Facility: [facility] Address: [address] Performed By: #### 5 8410-2 ####[facility]ORATORYCLIA [id number] [address] [place] Platelets (Bld) [#/Vol] 269 10*3/uL Normal 150-400 [facility] Comment on above: Order Comment: Speci men Type: BLOOD SPECIMENOrdering Facility: [facility] Address: [address] [place] [address] Performed By: #### 5 8410-2 ####[facility]ORATORYCLIA [id number] [address] [place] RBC (Bld) [#/Vol] 3.58 10*6/uL Low 4.20-6.00 [facility] Comment on above: Order Comment: Speci men Type: BLOOD SPECIMENOrdering Facility: [facility] Address: [address] [place] [address] Performed By: #### 5 8410-2 ####[facility]ORATORYCLIA [id number] [address] [place] WBC (Bld) [#/Vol] 13.11 10*3/uL High 3.70-11.00 [facility] Comment on above: Order Comment: Speci men Type: BLOOD SPECIMENOrdering Facility: [facility] Address: [address] [place] [address] Performed By: #### 5 8410-2 ####[facility]ATORYCLIA [id number] [address] [place] CONSULTon 06-16-2021 CONSULT Normal [facility] CONSULT PROGon 06-16-2021 CONSULT PROG Normal [facility] CT BRAIN WO IVCONon 06-16-[address] BRAIN WO IVCON Normal [facility] HEMOGLOBIN (HGB)on 2 Hemoglobin (Bld) [Mass/Vol] 8.9 g/dL Low 13.0-17.0 [facility] Comment on above: Order Comment: Speci men Type: BLOOD SPECIMENOrdering Facility: [facility] Address: [address] [place] [address] Performed By: #### H GB ####[facility]ATORYCLIA [id number] [address] [place] Hemoglobin (Bld) [Mass/Vol] 9.6 g/dL Low 13.0-17.0 [facility] Comment on above: Order Comment: Speci men Type: BLOOD SPECIMENOrdering Facility: [facility] Address: [address] [place] [address] Performed By: #### H GB ####[facility]ORATORYCLIA [id number] [place] [address] [place] Magnesium SerPl-mCncon 06-16 Magnesium [Mass/Vol] 2.7 mg/dL High 1.7-2.3 [facility] Comment on above: Order Comment: Speci men Type: BLOOD SPECIMENOrdering Facility: [facility] Address: [address] [place] [address] Performed By: #### 1 9123-9 ####[facility]ORATORYCLIA [id number] [place] [address] [place] NURSING PROGon 06-16-2021 NURSING PROG Normal [facility] NUTRITIONon 06-16-2021 NUTRITION Normal [facility] Phosphate SerPl-mCncon 06-16 Phosphate [Mass/Vol] 1.4 mg/dL Low 2.7-4.8 [facility] Comment on above: Order Comment: Speci men Type: BLOOD SPECIMENOrdering Facility: [facility] Address: [address] [place] [address] Performed By: #### 2 777-1 ####[facility]ORATORYCLIA [id number] [address] [place] STAPH AUREUS PCRon 2 S. aureus and MRSA panel MEGAN+probe (Nose) Normal Negative [facility] Comment on above: Order Comment: Speci men Type: SWAB OF INTERNAL NOSEOrdering Facility: [facility] Address: [address] [place] [address] Result Comment: Nega tive for Staphylococcus aureus by PCR.Negative for MRSA by PCR Performed By: #### S APCR ####[facility]ORATORYCLIA [id number] [place] [address] [place] Sodium SerPl-sCncon 06-16-19 22 Sodium [Moles/Vol] 150 mmol/L High 136-144 [facility] Comment on above: Order Comment: Speci men Type: BLOOD SPECIMENOrdering Facility: [facility] Address: [address] [place] [address] Performed By: #### 2 951-2 ####[facility]ORATORYCLIA [id number] [address] [place] [facility] Sodium [Moles/Vol] 153 mmol/L High 136-144 [facility] Comment on above: Order Comment: Speci men Type: BLOOD SPECIMENOrdering Facility: [facility] Address: [address] [place] [address] Performed By: #### 2 951-2 ####[facility]ATORYCLIA [id number] [address] STATES [facility] Sodium [Moles/Vol] 158 mmol/L High 136-144 [facility] Comment on above: Order Comment: Speci men Type: BLOOD SPECIMENOrdering Facility: [facility] Address: [address] [place] [address] Performed By: #### 2 951-2 ####[facility]ORATORYCLIA [id number] [address] [place] [facility] aPTT PPPon 06-16-2021 aPTT Coag (PPP) [Time] 61.8 s High 23.0-32.4 [facility] Comment on above: Order Comment: Speci men Type: BLOOD SPECIMENOrdering Facility: [facility] Address: [address] [place] [address] Performed By: #### 1 4979-9 ####[facility]ATORYCLIA [id number] [address] [place] aPTT Coag (PPP) [Time] 57.6 s High 23.0-32.4 [facility] Comment on above: Order Comment: Speci men Type: BLOOD SPECIMENOrdering Facility: [facility] Address: [address] [place] [address] Performed By: #### 1 4979-9 ####[facility]ORATORYCLIA [id number] [address] [place] ALLIED HEALTHon 06-15-2021 ALLIED HEALTH Normal [facility] ALLIED HEALTH Normal [facility] ALLIED HEALTH Normal [facility] ALLIED HEALTH Normal [facility] ARTERIAL BLOOD GASESon 06-15 Base excess Calc (Bld) [Moles/Vol] 3 mmol/L High 0-2 [facility] Comment on above: Order Comment: Speci men Type: ARTERIAL BLOOD SPECIMENOrdering Facility: [facility] Address: [address] [place] [address] Performed By: #### A LLBG ####[facility]ORATORYCLIA [id number] [address] [place] Body temperature 99.5 [degF] Normal [facility] Comment on above: Order Comment: Speci men Type: ARTERIAL BLOOD SPECIMENOrdering Facility: [facility] Address: [address] [place] [address] Performed By: #### A LLBG ####[facility]ORATORYCLIA [id number] [place] [address] [place] CALCIUM IONIZED, PH CORRECTED 1.34 mmol/L High 1.08-1.30 [facility] Comment on above: Order Comment: Speci men Type: ARTERIAL BLOOD SPECIMENOrdering Facility: [facility] Address: [address] [place] [address] Performed By: #### A LLBG ####[facility]ATORYCLIA [id number] [address] [place] Calcium.ionized (BldV) [Mass/Vol] 1.29 mmol/L Normal 1.08-1.30 [facility] Comment on above: Order Comment: Speci men Type: ARTERIAL BLOOD SPECIMENOrdering Facility: [facility] Address: [address] [place] [address] Performed By: #### A LLBG ####[facility]ORATORYCLIA [id number] [address] [place] Carboxyhemoglobin (BldA) [Mass fraction] 1.3 % Normal 0.0-2.0 [facility] Comment on above: Order Comment: Speci men Type: ARTERIAL BLOOD SPECIMENOrdering Facility: [facility] Address: [address] [address] Result Comment: Carb oxyhemoglobin Reference Range for Smokers: 2.0-8.0% Performed By: #### A LLBG ####[facility]ATORYCLIA [id number] [address] CO2 (Bld) [Partial pressure] 37 mm Hg Normal 36-46 [facility] Comment on above: Order Comment: Speci men Type: ARTERIAL BLOOD SPECIMENOrdering Facility: [facility] Address: [address] [place] [address] Performed By: #### A LLBG ####[facility]ATORYCLIA [id number] [address] [place] CO2 [Moles/Vol] 24.6 mmol/L Normal 22-28 [facility] Comment on above: Order Comment: Speci men Type: ARTERIAL BLOOD SPECIMENOrdering Facility: [facility] Address: [address] [place] [address] Performed By: #### A LLBG ####[facility]ATORYCLIA [id number] [address] CO2 adjusted to patient's actual temperature (Bld) [Partial pressure] 38 mmHg Normal 36-46 [facility] Comment on above: Order Comment: Speci men Type: ARTERIAL BLOOD SPECIMENOrdering Facility: [facility] Address: [address] [place] [address] Performed By: #### A LLBG ####[facility]ATORYCLIA [id number] [address] [place] FIO2 100 % Normal [facility] Comment on above: Order Comment: Speci men Type: ARTERIAL BLOOD SPECIMENOrdering Facility: [facility] Address: [address] [place] [address] Performed By: #### A LLBG ####[facility]ATORYCLIA [id number] [place] [address] [place] Glucose [Mass/Vol] 159 mg/dL High 60-105 [facility] Comment on above: Order Comment: Speci men Type: ARTERIAL BLOOD SPECIMENOrdering Facility: [facility] Address: [address] [place] [address] Performed By: #### A LLBG ####[facility]ATORYCLIA [id number] [address] [place] HCO3 (Bld) [Moles/Vol] 27 mmol/L High 22-26 [facility] Comment on above: Order Comment: Speci men Type: ARTERIAL BLOOD SPECIMENOrdering Facility: [facility] Address: [address] [place] [address] Performed By: #### A LLBG ####[facility]ATORYCLIA [id number] [address] [place] Hematocrit (Bld) [Volume fraction] 31.0 % Low 39.0-51.0 [facility] Comment on above: Order Comment: Speci men Type: ARTERIAL BLOOD SPECIMENOrdering Facility: [facility] Address: [address] [place] [address] Performed By: #### A LLBG ####[facility]ATORYCLIA [id number] [address] [place] Hemoglobin (Bld) [Mass/Vol] 10.0 g/dL Low 13.0-17.0 [facility] Comment on above: Order Comment: Speci men Type: ARTERIAL BLOOD SPECIMENOrdering Facility: [facility] Address: [address] [place] [address] Performed By: #### A LLBG ####[facility]ATORYCLIA [id number] [address] [place] Methemoglobin (Bld) [Mass fraction] % Normal 0.0-1.5 [facility] Comment on above: Order Comment: Speci men Type: ARTERIAL BLOOD SPECIMENOrdering Facility: [facility] Address: [address] [place] [address] Performed By: #### A LLBG ####[facility]ORATORYCLIA [id number] [address] [place] O2 THERAPY Ventilator Normal [facility] Comment on above: Order Comment: Speci men Type: ARTERIAL BLOOD SPECIMENOrdering Facility: [facility] Address: [address] [address] Performed By: #### A LLBG ####[facility]ATORYCLIA [id number] [address] [place] Oxygen (Bld) [Partial pressure] 279 mm Hg High 85-95 [facility] Comment on above: Order Comment: Speci men Type: ARTERIAL BLOOD SPECIMENOrdering Facility: [facility] Address: [address] [address] Performed By: #### A LLBG ####[facility]ATORYCLIA [id number] [address] [place] Oxygen adjusted to patient's actual temperature (Bld) [Partial pressure] 281 mmHg High 85-95 [facility] Comment on above: Order Comment: Speci men Type: ARTERIAL BLOOD SPECIMENOrdering Facility: [facility] Address: [address] [address] Performed By: #### A LLBG ####[facility]ATORYCLIA [id number] [address] [place] OXYGEN SATURATION, ARTERIAL 100 % High 95-98 [facility] Comment on above: Order Comment: Speci men Type: ARTERIAL BLOOD SPECIMENOrdering Facility: [facility] Address: [address] [address] Performed By: #### A LLBG ####[facility]ATORYCLIA [id number] [address] [place] Oxyhemoglobin (BldA) [Mass fraction] 98 % Normal 95-98 [facility] Comment on above: Order Comment: Speci men Type: ARTERIAL BLOOD SPECIMENOrdering Facility: [facility] Address: [address] [address] Performed By: #### A LLBG ####[facility]ATORYCLIA [id number] [address] [place] pH (Bld) 7.47 [pH] High 7.35-7.45 [facility] Comment on above: Order Comment: Speci men Type: ARTERIAL BLOOD SPECIMENOrdering Facility: [facility] Address: [address] [place] [address] Performed By: #### A LLBG ####[facility]ATORYCLIA [id number] [address] [place] pH adjusted to patient's actual temperature (Bld) 7.46 High 7.35-7.45 [facility] Comment on above: Order Comment: Speci men Type: ARTERIAL BLOOD SPECIMENOrdering Facility: [facility] Address: [address] [place] [address] Performed By: #### A LLBG ####[facility]ATORYCLIA [id number] [address] [place] Potassium [Moles/Vol] 3.6 mmol/L Normal 3.5-5.0 [facility] Comment on above: Order Comment: Speci men Type: ARTERIAL BLOOD SPECIMENOrdering Facility: [facility] Address: [address] [place] [address] Performed By: #### A LLBG ####[facility]ORATORYCLIA [id number] [address] [place] Sodium [Moles/Vol] 162 mmol/L High 136-144 [facility] Comment on above: Order Comment: Speci men Type: ARTERIAL BLOOD SPECIMENOrdering Facility: [facility] Address: [address] [place] [address] Performed By: #### A LLBG ####[facility]ORATORYCLIA [id number] [address] [place] Base excess Calc (Bld) [Moles/Vol] 4 mmol/L High 0-2 [facility] Comment on above: Order Comment: Speci men Type: ARTERIAL BLOOD SPECIMENOrdering Facility: [facility] Address: [address] [place] [address] Performed By: #### A LLBG ####[facility]ORATORYCLIA [id number] [address] Body temperature 100.58 [degF] Normal [facility] Comment on above: Order Comment: Speci men Type: ARTERIAL BLOOD SPECIMENOrdering Facility: [facility] Address: [address] [place] [address] Performed By: #### A LLBG ####[facility]ORATORYCLIA [id number] [address] [place] CALCIUM IONIZED, PH CORRECTED 1.34 mmol/L High 1.08-1.30 [facility] Comment on above: Order Comment: Speci men Type: ARTERIAL BLOOD SPECIMENOrdering Facility: [facility] Address: [address] [place] [address] Performed By: #### A LLBG ####[facility]ATORYCLIA [id number] [address] Calcium.ionized (BldV) [Mass/Vol] 1.33 mmol/L High 1.08-1.30 [facility] Comment on above: Order Comment: Speci men Type: ARTERIAL BLOOD SPECIMENOrdering Facility: [facility] Address: [address] [place] [address] Performed By: #### A LLBG ####[facility]ORATORYCLIA [id number] [address] [place] Carboxyhemoglobin (BldA) [Mass fraction] 1.5 % Normal 0.0-2.0 [facility] Comment on above: Order Comment: Speci men Type: ARTERIAL BLOOD SPECIMENOrdering Facility: [facility] Address: [address] [place] [address] Result Comment: Carb oxyhemoglobin Reference Range for Smokers: 2.0-8.0% Performed By: #### A LLBG ####[facility]ATORYCLIA [id number] [address] [place] CO2 (Bld) [Partial pressure] 46 mm Hg Normal 36-46 [facility] Comment on above: Order Comment: Speci men Type: ARTERIAL BLOOD SPECIMENOrdering Facility: [facility] Address: [address] [place] [address] Performed By: #### A LLBG ####[facility]ORATORYCLIA [id number] [address] [place] CO2 [Moles/Vol] 26.4 mmol/L Normal 22-28 [facility] Comment on above: Order Comment: Speci men Type: ARTERIAL BLOOD SPECIMENOrdering Facility: [facility] Address: [address] [place] [address] Performed By: #### A LLBG ####[facility]ATORYCLIA [id number] [address] [place] CO2 adjusted to patient's actual temperature (Bld) [Partial pressure] 48 mmHg High 36-46 [facility] Comment on above: Order Comment: Speci men Type: ARTERIAL BLOOD SPECIMENOrdering Facility: [facility] Address: [address] [place] [address] Performed By: #### A LLBG ####[facility]ATORYCLIA [id number] [address] FIO2 100 % Normal [facility] Comment on above: Order Comment: Speci men Type: ARTERIAL BLOOD SPECIMENOrdering Facility: [facility] Address: [address] [place] [address] Performed By: #### A LLBG ####[facility]ORYCLIA [id number] [address] [place] Glucose [Mass/Vol] 132 mg/dL High 60-105 [facility] Comment on above: Order Comment: Speci men Type: ARTERIAL BLOOD SPECIMENOrdering Facility: [facility] Address: [address] [place] [address] Performed By: #### A LLBG ####[facility]ATORYCLIA [id number] [address] [place] HCO3 (Bld) [Moles/Vol] 29 mmol/L High 22-26 [facility] Comment on above: Order Comment: Speci men Type: ARTERIAL BLOOD SPECIMENOrdering Facility: [facility] Address: [address] [place] [address] Performed By: #### A LLBG ####[facility]ATORYCLIA [id number] [address] Hematocrit (Bld) [Volume fraction] 32.3 % Low 39.0-51.0 [facility] Comment on above: Order Comment: Speci men Type: ARTERIAL BLOOD SPECIMENOrdering Facility: [facility] Address: [address] [place] [address] Performed By: #### A LLBG ####[facility]ATORYCLIA [id number] [address] Hemoglobin (Bld) [Mass/Vol] 10.4 g/dL Low 13.0-17.0 [facility] Comment on above: Order Comment: Speci men Type: ARTERIAL BLOOD SPECIMENOrdering Facility: [facility] Address: [address] [place] [address] Performed By: #### A LLBG ####[facility]ATORYCLIA [id number] [address] Methemoglobin (Bld) [Mass fraction] % Normal 0.0-1.5 [facility] Comment on above: Order Comment: Speci men Type: ARTERIAL BLOOD SPECIMENOrdering Facility: [facility] Address: [address] [place] [address] Performed By: #### A LLBG ####[facility]ATORYCLIA [id number] [address] O2 THERAPY NR=Non-Rebreather Mask Normal [facility] Comment on above: Order Comment: Speci men Type: ARTERIAL BLOOD SPECIMENOrdering Facility: [facility] Address: [address] [place] [address] Performed By: #### A LLBG ####[facility]ATORYCLIA [id number] [address] [place] Oxygen (Bld) [Partial pressure] 130 mm Hg High 85-95 [facility] Comment on above: Order Comment: Speci men Type: ARTERIAL BLOOD SPECIMENOrdering Facility: [facility] Address: [address] [address] Performed By: #### A LLBG ####[facility]ATORYCLIA [id number] [address] [place] Oxygen adjusted to patient's actual temperature (Bld) [Partial pressure] 136 mmHg High 85-95 [facility] Comment on above: Order Comment: Speci men Type: ARTERIAL BLOOD SPECIMENOrdering Facility: [facility] Address: [address] [place] [address] Performed By: #### A LLBG ####[facility]ATORYCLIA [id number] [address] [place] OXYGEN SATURATION, ARTERIAL 99 % High 95-98 [facility] Comment on above: Order Comment: Speci men Type: ARTERIAL BLOOD SPECIMENOrdering Facility: [facility] Address: [address] [place] [address] Performed By: #### A LLBG ####[facility]ATORYCLIA [id number] [address] Oxyhemoglobin (BldA) [Mass fraction] 97 % Normal 95-98 [facility] Comment on above: Order Comment: Speci men Type: ARTERIAL BLOOD SPECIMENOrdering Facility: [facility] Address: [address] [place] [address] Performed By: #### A LLBG ####[facility]ATORYCLIA [id number] [address] [place] pH (Bld) 7.41 [pH] Normal 7.35-7.45 [facility] Comment on above: Order Comment: Speci men Type: ARTERIAL BLOOD SPECIMENOrdering Facility: [facility] Address: [address] [address] Performed By: #### A LLBG ####[facility]ATORYCLIA [id number] [address] pH adjusted to patient's actual temperature (Bld) 7.40 Normal 7.35-7.45 [facility] Comment on above: Order Comment: Speci men Type: ARTERIAL BLOOD SPECIMENOrdering Facility: [facility] Address: [address] [place] [address] Performed By: #### A LLBG ####[facility]ATORYCLIA [id number] [address] Potassium [Moles/Vol] 3.8 mmol/L Normal 3.5-5.0 [facility] Comment on above: Order Comment: Speci men Type: ARTERIAL BLOOD SPECIMENOrdering Facility: [facility] Address: [address] [place] [address] Performed By: #### A LLBG ####[facility]ATORYCLIA [id number] [address] STATES [facility] Sodium [Moles/Vol] 166 mmol/L High 136-144 [facility] Comment on above: Order Comment: Speci men Type: ARTERIAL BLOOD SPECIMENOrdering Facility: [facility] Address: [address] [place] [address] Performed By: #### A LLBG ####[facility]ATORYCLIA [id number] [address] [place] Bacteria Bld Culton 06-15-19 22 Bacteria identified Cx Nom (Bld) CULTURE, BLOOD: No growth 5 days Normal [facility] Comment on above: Performed By: #### 6 00-7 ####[facility]ATORYCLIA [id number] [place] [address] [place] Basic metabolic 2000 panelon 06-15-2021 Anion gap [Moles/Vol] 9 mmol/L Normal 9-18 [facility] Comment on above: Order Comment: Speci men Type: BLOOD SPECIMEN Performed By: #### 2 4321-2, 2777-1, 02578-3 ####[facility]ATORYCLIA [id number] [address] [place] [facility] Calcium [Mass/Vol] 9.0 mg/dL Normal 8.5-10.2 [facility] Comment on above: Order Comment: Speci men Type: BLOOD SPECIMEN Performed By: #### 2 4321-2, 2776-, ####[facility]ORYCLIA [id number] [address] Chloride [Moles/Vol] 125 mmol/L High 97-105 [facility] Comment on above: Order Comment: Speci men Type: BLOOD SPECIMEN Performed By: #### 2 4321-2, 2776-05, ####[facility]ORYCLIA [id number] [address] CO2 [Moles/Vol] 29 mmol/L Normal 22-30 [facility] Comment on above: Order Comment: Speci men Type: BLOOD SPECIMEN Performed By: #### 2 4321-2, 2776-05, ####[facility]ORYCLIA [id number] [address] [place] [facility] Creatinine [Mass/Vol] 0.81 mg/dL Normal 0.73-1.22 [facility] Comment on above: Order Comment: Speci men Type: BLOOD SPECIMEN Performed By: #### 2 4321-2, 2776-05, ####[facility]ATORYCLIA [id number] [address] [place] GFR/1.73 sq M.predicted MDRD (S/P/Bld) [Vol rate/Area] mL/min/{1.73_m2} Normal [facility] Comment on above: Order [...] GFR. Performed By: #### 2 4321-2, 2776-05, ####[facility] LABORATORYCLIA [id number] [place] [address] [place] Glucose [Mass/Vol] 124 mg/dL High 74-99 [facility] Comment on above: Order Comment: Speci men Type: BLOOD SPECIMEN Result Comment: The [place] [employer] (ADA) provides guidance for cutoff [...] Standards of Medical Care in Diabetes 2016, [place] [employer]. Diabetes Care. 2016.39(Suppl 1). Performed By: #### 2 4321-2, 2776-05, ####[facility]ORATORYCLIA [id number] [place] [address] [place] Potassium [Moles/Vol] 3.8 mmol/L Normal 3.7-5.1 [facility] Comment on above: Order Comment: Speci men Type: BLOOD SPECIMEN Performed By: #### 2 4321-2, 2776-05, ####[facility]ATORYCLIA [id number] [place] [address] [place] Sodium [Moles/Vol] 163 mmol/L High 136-144 [facility] Comment on above: Order Comment: Speci men Type: BLOOD SPECIMEN Performed By: #### 2 4321-2, 2776-05, ####[facility]ORATORYCLIA [id number] [address] STATES OF [facility] Urea nitrogen [Mass/Vol] 35 mg/dL High 9-24 [facility] Comment on above: Order Comment: Speci men Type: BLOOD SPECIMEN Performed By: #### 2 4321-2, 2777-1, 18835-2 ####[facility]ATORYCLIA [id number] [address] STATES OF [facility] CBC panel Auto (Bld)on 06-15 Erythrocyte distribution width (RBC) [Ratio] 16.3 % High 11.5-15.0 [facility] Comment on above: Order Comment: Speci men Type: BLOOD SPECIMENOrdering Facility: [facility] Address: [address] [place] [address] Performed By: #### 5 8410-2 ####[facility]ORATORYCLIA [id number] [address] Hematocrit (Bld) [Volume fraction] 30.0 % Low 39.0-51.0 [facility] Comment on above: Order Comment: Speci men Type: BLOOD SPECIMENOrdering Facility: [facility] Address: [address] [place] [address] Performed By: #### 5 8410-2 ####[facility]ORATORYCLIA [id number] [address] OF [facility] Hemoglobin (Bld) [Mass/Vol] 8.9 g/dL Low 13.0-17.0 [facility] Comment on above: Order Comment: Speci men Type: BLOOD SPECIMENOrdering Facility: [facility] Address: [address] [place] [address] Performed By: #### 5 8410-2 ####[facility]ORATORYCLIA [id number] [address] MCH (RBC) [Entitic mass] 28.7 pg Normal 26.0-34.0 [facility] Comment on above: Order Comment: Speci men Type: BLOOD SPECIMENOrdering Facility: [facility] Address: [address] [place] [address] Performed By: #### 5 8410-2 ####[facility]ORATORYCLIA [id number] [address] MCHC (RBC) [Mass/Vol] 29.7 g/dL Low 30.5-36.0 [facility] Comment on above: Order Comment: Speci men Type: BLOOD SPECIMENOrdering Facility: [facility] Address: [address] [place] [address] Performed By: #### 5 8410-2 ####[facility]ORATORYCLIA [id number] [address] MCV (RBC) [Entitic vol] 96.8 fL Normal 80.0-100.0 [facility] Comment on above: Order Comment: Speci men Type: BLOOD SPECIMENOrdering Facility: [facility] Address: [address] [place] [address] Performed By: #### 5 8410-2 ####[facility]ORATORYCLIA [id number] [address] Nucleated RBC (Bld) [#/Vol] 10*3/uL Normal <0.01 [facility] Comment on above: Order Comment: Speci men Type: BLOOD SPECIMENOrdering Facility: [facility] Address: [address] [place] [address] Performed By: #### 5 8410-2 ####[facility]ORATORYCLIA [id number] [address] Platelet mean volume (Bld) [Entitic vol] 12.3 fL Normal 9.0-12.7 [facility] Comment on above: Order Comment: Speci men Type: BLOOD SPECIMENOrdering Facility: [facility] Address: [address] [place] [address] Performed By: #### 5 8410-2 ####[facility]ORATORYCLIA [id number] [address] [place] Platelets (Bld) [#/Vol] 226 10*3/uL Normal 150-400 [facility] Comment on above: Order Comment: Speci men Type: BLOOD SPECIMENOrdering Facility: [facility] Address: [address] [place] [address] Performed By: #### 5 8410-2 ####[facility]ORATORYCLIA [id number] [address] STATES OF [facility] RBC (Bld) [#/Vol] 3.10 10*6/uL Low 4.20-6.00 [facility] Comment on above: Order Comment: Speci men Type: BLOOD SPECIMENOrdering Facility: [facility] Address: [address] [place] [address] Performed By: #### 5 8410-2 ####[facility]ORATORYCLIA [id number] [address] OF [facility] WBC (Bld) [#/Vol] 10.77 10*3/uL Normal 3.70-11.00 [facility] Comment on above: Order Comment: Speci men Type: BLOOD SPECIMENOrdering Facility: [facility] Address: [address] [place] [address] Performed By: #### 5 8410-2 ####[facility]ATORYCLIA [id number] [address] OF [facility] Erythrocyte distribution width (RBC) [Ratio] 16.2 % High 11.5-15.0 [facility] Comment on above: Order Comment: Speci men Type: BLOOD SPECIMENOrdering Facility: [facility] Address: [address] [place] [address] Performed By: #### 5 8410-2 ####[facility]ORATORYCLIA [id number] [address] Hematocrit (Bld) [Volume fraction] 34.8 % Low 39.0-51.0 [facility] Comment on above: Order Comment: Speci men Type: BLOOD SPECIMENOrdering Facility: [facility] Address: [address] [place] [address] Performed By: #### 5 8410-2 ####[facility]ORATORYCLIA [id number] [address] Hemoglobin (Bld) [Mass/Vol] 10.0 g/dL Low 13.0-17.0 [facility] Comment on above: Order Comment: Speci men Type: BLOOD SPECIMENOrdering Facility: [facility] Address: [address] [place] [address] Performed By: #### 5 8410-2 ####[facility]ORATORYCLIA [id number] [address] MCH (RBC) [Entitic mass] 27.5 pg Normal 26.0-34.0 [facility] Comment on above: Order Comment: Speci men Type: BLOOD SPECIMENOrdering Facility: [facility] Address: [address] [place] [address] Performed By: #### 5 8410-2 ####[facility]ORATORYCLIA [id number] [address] MCHC (RBC) [Mass/Vol] 28.7 g/dL Low 30.5-36.0 [facility] Comment on above: Order Comment: Speci men Type: BLOOD SPECIMENOrdering Facility: [facility] Address: [address] [place] [address] Performed By: #### 5 8410-2 ####[facility]ORATORYCLIA [id number] [address] MCV (RBC) [Entitic vol] 95.6 fL Normal 80.0-100.0 [facility] Comment on above: Order Comment: Speci men Type: BLOOD SPECIMENOrdering Facility: [facility] Address: [address] [place] [address] Performed By: #### 5 8410-2 ####[facility]ORATORYCLIA [id number] [address] Nucleated RBC (Bld) [#/Vol] 10*3/uL Normal <0.01 [facility] Comment on above: Order Comment: Speci men Type: BLOOD SPECIMENOrdering Facility: [facility] Address: [address] [place] [address] Performed By: #### 5 8410-2 ####[facility]ORATORYCLIA [id number] [address] [place] Platelet mean volume (Bld) [Entitic vol] 11.9 fL Normal 9.0-12.7 [facility] Comment on above: Order Comment: Speci men Type: BLOOD SPECIMENOrdering Facility: [facility] Address: [address] [place], [place] [address] Performed By: #### 5 8410-2 ####[facility]ORATORYCLIA [id number] [address] [place] Platelets (Bld) [#/Vol] 246 10*3/uL Normal 150-400 [facility] Comment on above: Order Comment: Speci men Type: BLOOD SPECIMENOrdering Facility: [facility] Address: [address] [place] [address] Performed By: #### 5 8410-2 ####[facility]ORATORYCLIA [id number] [address] [place] RBC (Bld) [#/Vol] 3.64 10*6/uL Low 4.20-6.00 [facility] Comment on above: Order Comment: Speci men Type: BLOOD SPECIMENOrdering Facility: [facility] Address: [address] [place], [place] [address] Performed By: #### 5 8410-2 ####[facility]ORATORYCLIA [id number] [address] OF [place] WBC (Bld) [#/Vol] 11.45 10*3/uL High 3.70-11.00 [facility] Comment on above: Order Comment: Speci men Type: BLOOD SPECIMENOrdering Facility: [facility] Address: [address] [place] [address] Performed By: #### 5 8410-2 ####[facility] LABORATORYCLIA [id number] [address] Erythrocyte distribution width (RBC) [Ratio] 15.9 % High 11.5-15.0 [facility] Comment on above: Order Comment: Speci men Type: BLOOD SPECIMEN Performed By: #### 5 8410-2 ####[facility]ATORYCLIA [id number] [address] Hematocrit (Bld) [Volume fraction] 35.8 % Low 39.0-51.0 [facility] Comment on above: Order Comment: Speci men Type: BLOOD SPECIMEN Performed By: #### 5 8410-2 ####[facility]ATORYCLIA [id number] [address] Hemoglobin (Bld) [Mass/Vol] 10.4 g/dL Low 13.0-17.0 [facility] Comment on above: Order Comment: Speci men Type: BLOOD SPECIMEN Performed By: #### 5 8410-2 ####[facility]ATORYCLIA [id number] [address] MCH (RBC) [Entitic mass] 28.0 pg Normal 26.0-34.0 [facility] Comment on above: Order Comment: Speci men Type: BLOOD SPECIMEN Performed By: #### 5 8410-2 ####[facility]ATORYCLIA [id number] [address] MCHC (RBC) [Mass/Vol] 29.1 g/dL Low 30.5-36.0 [facility] Comment on above: Order Comment: Speci men Type: BLOOD SPECIMEN Performed By: #### 5 8410-2 ####[facility]ATORYCLIA [id number] [address] MCV (RBC) [Entitic vol] 96.2 fL Normal 80.0-100.0 [facility] Comment on above: Order Comment: Speci men Type: BLOOD SPECIMEN Performed By: #### 5 8410-2 ####[facility] LABORATORYCLIA [id number] [address] Nucleated RBC (Bld) [#/Vol] 10*3/uL Normal <0.01 [facility] Comment on above: Order Comment: Speci men Type: BLOOD SPECIMEN Performed By: #### 5 8410-2 ####[facility]ATORYCLIA [id number] [address] Platelet mean volume (Bld) [Entitic vol] 11.6 fL Normal 9.0-12.7 [facility] Comment on above: Order Comment: Speci men Type: BLOOD SPECIMEN Performed By: #### 5 8410-2 ####[facility] LABORATORYCLIA [id number] [address] Platelets (Bld) [#/Vol] 265 10*3/uL Normal 150-400 [facility] Comment on above: Order Comment: Speci men Type: BLOOD SPECIMEN Performed By: #### 5 8410-2 ####[facility]ATORYCLIA [id number] [address] RBC (Bld) [#/Vol] 3.72 10*6/uL Low 4.20-6.00 [facility] Comment on above: Order Comment: Speci men Type: BLOOD SPECIMEN Performed By: #### 5 8410-2 ####[facility]ORATORYCLIA [id number] [address] OF [facility] WBC (Bld) [#/Vol] 12.24 10*3/uL High 3.70-11.00 [facility] Comment on above: Order Comment: Speci men Type: BLOOD SPECIMEN Performed By: #### 5 8410-2 ####[facility]ATORYCLIA [id number] [address] CONSULTon 06-15-2021 CONSULT Normal [facility] CONSULT Normal [facility] CONSULT Normal [facility] CT BRAIN WO IVCONon 06-15-19 CT BRAIN WO IVCON Normal [facility] CT CHEST W IVCON PEon 2021 CT CHEST W IVCON PE Invalid Interpretation Code [facility] Chloride Unsp time (U) [Mole s/Vol]on 06-15-2021 Chloride (U) [Moles/Vol] 28 mmol/L Normal 16-250 [facility] Comment on above: Order Comment: Speci men Type: URINE SPECIMENOrdering Facility: [facility] Address: [address] [place] [address] Performed By: #### U TPR, 76611-7, 38692-5, 87898-7 ####[facility]ORATORYCLIA [id number] [address] Comprehensive metabolic 2000 panelon 06-15-2021 Albumin [Mass/Vol] 2.8 g/dL Low 3.9-4.9 [facility] Comment on above: Order Comment: Speci men Type: BLOOD SPECIMENOrdering Facility: [facility] Address: [address] [place] [address] Performed By: #### 2 4323-8 ####[facility]ORATORYCLIA [id number] [address] ALP [Catalytic activity/Vol] 74 U/L Normal 38-113 [facility] Comment on above: Order Comment: Speci men Type: BLOOD SPECIMENOrdering Facility: [facility] Address: [address] [place] [address] Performed By: #### 2 4323-8 ####[facility]ORATORYCLIA [id number] [address] STATES [facility] ALT With P-5'-P [Catalytic activity/Vol] 50 U/L Normal 10-54 [facility] Comment on above: Order Comment: Speci men Type: BLOOD SPECIMENOrdering Facility: [facility] Address: [address] [place] [address] Performed By: #### 2 4323-8 ####[facility]ORATORYCLIA [id number] [address] Anion gap [Moles/Vol] 12 mmol/L Normal 9-18 [facility] Comment on above: Order Comment: Speci men Type: BLOOD SPECIMENOrdering Facility: [facility] Address: [address] [place] [address] Performed By: #### 2 4323-8 ####[facility] LABORATORYCLIA [id number] [address] [place] AST With P-5'-P [Catalytic activity/Vol] 36 U/L Normal 14-40 [facility] Comment on above: Order Comment: Speci men Type: BLOOD SPECIMENOrdering Facility: [facility] Address: [address] [place] [address] Performed By: #### 2 4323-8 ####[facility]ORATORYCLIA [id number] [address] [place] Bilirubin [Mass/Vol] 0.5 mg/dL Normal 0.2-1.3 [facility] Comment on above: Order Comment: Speci men Type: BLOOD SPECIMENOrdering Facility: [facility] Address: [address] [place] [address] Performed By: #### 2 4323-8 ####[facility]ORATORYCLIA [id number] [address] STATES OF [facility] Calcium [Mass/Vol] 8.8 mg/dL Normal 8.5-10.2 [facility] Comment on above: Order Comment: Speci men Type: BLOOD SPECIMENOrdering Facility: [facility] Address: [address] [address] Performed By: #### 2 4323-8 ####[facility]ORATORYCLIA [id number] [address] [place] Chloride [Moles/Vol] 126 mmol/L High 97-105 [facility] Comment on above: Order Comment: Speci men Type: BLOOD SPECIMENOrdering Facility: [facility] Address: [address] [place] [address] Performed By: #### 2 4323-8 ####[facility]ORATORYCLIA [id number] [address] [place] CO2 [Moles/Vol] 24 mmol/L Normal 22-30 [facility] Comment on above: Order Comment: Speci men Type: BLOOD SPECIMENOrdering Facility: [facility] Address: [address] [place] [address] Performed By: #### 2 4323-8 ####[facility]PITALCLIA [id number] [address] [place] Creatinine [Mass/Vol] 0.84 mg/dL Normal 0.73-1.22 [facility] Comment on above: Order Comment: Speci men Type: BLOOD SPECIMENOrdering Facility: [facility] Address: [address] [place] [address] Performed By: #### 2 4323-8 ####[facility] HOSPITALCLIA [id number] [address] [place] GFR/1.73 sq M.predicted MDRD (S/P/Bld) [Vol rate/Area] mL/min/{1.73_m2} Normal [facility] Comment on above: Order Comment: Speci men Type: BLOOD SPECIMENOrdering Facility: [facility] Address: [address] [place] [address] Result Comment: >60e GFR (Estimated GFR) Units [...] actual GFR. Performed By: #### 2 4323-8 ####[facility]ORATORYCLIA [id number] [address] [place] Glucose [Mass/Vol] 142 mg/dL High 74-99 [facility] Comment on above: Order Comment: Speci men Type: BLOOD SPECIMENOrdering Facility: [facility] Address: [address] [place] [address] Result Comment: The [place] [employer] (ADA) provides guidance for cutoff [...] Standards of Medical Care in Diabetes 2016, [place] [employer]. Diabetes Care. 2016.39(Suppl 1). Performed By: #### 2 4323-8 ####[facility]ORATORYCLIA [id number] [place] [address] [place] Potassium [Moles/Vol] 3.8 mmol/L Normal 3.7-5.1 [facility] Comment on above: Order Comment: Johni men Type: BLOOD SPECIMENOrdering Facility: [facility] Address: [address] [place] [address] Performed By: #### 2 4323-8 ####[facility]ORATORYCLIA [id number] [place] [address] [place] Protein [Mass/Vol] 6.1 g/dL Low 6.3-8.0 [facility] Comment on above: Order Comment: Speci men Type: BLOOD SPECIMENOrdering Facility: [facility] Address: [address] [address] Performed By: #### 2 4323-8 ####[facility] LABORATORYCLIA [id number] [place] [address] [place] Sodium [Moles/Vol] 162 mmol/L High 136-144 [facility] Comment on above: Order Comment: Speci men Type: BLOOD SPECIMENOrdering Facility: [facility] Address: [address] [place] [address] Performed By: #### 2 4323-8 ####[facility] LABORATORYCLIA [id number] [place] [address] [place] [facility] Urea nitrogen [Mass/Vol] 33 mg/dL High 9-24 [facility] Comment on above: Order Comment: Speci men Type: BLOOD SPECIMENOrdering Facility: [facility] Address: [address] [place] [address] Performed By: #### 2 4323-8 ####[facility] LABORATORYCLIA [id number] [place] [id number] [place] Creatinine Unsp time (U) [Ma ss/Vol]on 06-15-2021 Creatinine (U) [Mass/Vol] 87.0 mg/dL Normal 46.8-314.5 [facility] Comment on above: Order Comment: Speci men Type: URINE SPECIMENOrdering Facility: [facility] Address: [address] [place] [address] Performed By: #### U TPR, 79070-7, 11822-0, 31326-0 ####[facility]OSPITALCLIA [id number] [address] [place] HIGH SENSITIVITY TROPONIN To n 06-15-2021 HIGH SENSITIVITY TAMIKO 23 ng/L High <12 [facility] Comment on above: Order Comment: Speci men Type: BLOOD SPECIMENOrdering Facility: [facility] Address: [address] [place] [address] Result Comment: When assessing risk for acute [...] day MACE. Performed By: #### P ROCAL, 94845-4, HSTNT ####[facility] LABORATORYCLIA [id number] [place] [address] [place] Lactate (Bld) [Moles/Vol]on 06-15-2021 Lactate [Moles/Vol] 0.8 mmol/L Normal 0.5-2.2 [facility] Comment on above: Order Comment: Speci men Type: BLOOD SPECIMENOrdering Facility: [facility] Address: [address] [place] [address] Performed By: #### 3 2693-4 ####[facility] HOSPITALCLIA [id number] [address] Magnesium SerPl-ncon 06-15 Magnesium [Mass/Vol] 3.0 mg/dL High 1.7-2.3 [facility] Comment on above: Order Comment: Speci men Type: BLOOD SPECIMEN Performed By: #### 2 4321-2, 2777-1, 11633-4 ####[facility] HOSPITALCLIA [id number] [address] NT-proBNP SerPl-ncon 06-15 Natriuretic peptide.B prohormone N-Terminal [Mass/Vol] 265 pg/mL High <125 [facility] Comment on above: Order Comment: Speci men Type: BLOOD SPECIMENOrdering Facility: [facility] Address: [address] [place] [address] Performed By: #### P ROCAL, 73353-7, HSTNT ####[facility] [id number] [address] [place] Osmolality Uron 06-15-2021 Osmolality (U) [Osmolality] 606 mosm/kg Normal 50-1,200 [facility] Comment on above: Order Comment: Speci men Type: URINE SPECIMENOrdering Facility: [facility] Address: [address] [place] [address] Performed By: #### 2 695-5 ####[facility] HOSPITALCLIA [id number] [address] [place] PROCALCITONIN (LAB)on 2021 Procalcitonin [Mass/Vol] 0.21 ng/mL High <0.09 [facility] Comment on above: Order Comment: Speci men Type: BLOOD SPECIMENOrdering Facility: [facility] Address: [address] [place] [address] Result Comment: For a guided interpretation of test results, please visit the Change in Procalcitonin Calculator, [email or web address]. Performed By: #### P JULIANNE, 2951-2 ####[facility] LABORATORYCLIA [id number] [address] Procalcitonin [Mass/Vol] 0.17 ng/mL High <0.09 [facility] Comment on above: Order Comment: Speci men Type: BLOOD SPECIMENOrdering Facility: [facility] Address: [address] [place] [address] Result Comment: For a guided interpretation of test results, please visit the Change in Procalcitonin Calculator, [email or web address]. Performed By: #### P JULIANNE, 71742-5, HSTNT ####[facility] LABORATORYCLIA [id number] [address] [place] PROTEIN RANDOM URon 06-15-19 22 Protein (U) [Mass/Vol] 175 mg/dL High 0-20 [facility] Comment on above: Order Comment: Speci men Type: URINE SPECIMENOrdering Facility: [facility] Address: [address] [place] [address] Performed By: #### U TPR, 74025-5, 36619-0, 50553-3 ####[facility] LABORATORYCLIA [id number] [address] [place] PT panel Coag (PPP)on 2021 INR Coag (PPP) [Relative time] 1.1 {INR} Normal <1.4 [facility] Comment on above: Order Comment: Speci men Type: BLOOD SPECIMENOrdering Facility: [facility] Address: [address] [place] [address] Result Comment: Yris min K Antagonist (VKA) Therapeutic Range: INR 2 to 3 (Target INR of 2.5)Note: For patients treated with VKA drugs, such as warfarin, the [employer] 2012 Guideline recommends [...] al. Chest 2012, 141:7S-47SNishmariangel RA, et al. [facility] 2017, 70: 252-289 Performed By: #### 3 4528-0, 07134-4 ####[facility]ORATORYCLIA [id number] [place] [address] [place] PT Coag (PPP) [Time] 11.4 s Normal <13.1 [facility] Comment on above: Order Comment: Shira feldman Type: BLOOD SPECIMENOrdering Facility: [facility] Address: [address] [place] [id number] Performed By: #### 3 4528-0, 75080-4 ####[facility]ORATORYCLIA [id number] [place] [address] [place] Phosphate SerPl-mCncon 06-15 Phosphate [Mass/Vol] 2.6 mg/dL Low 2.7-4.8 [facility] Comment on above: Order Comment: Shira feldman Type: BLOOD SPECIMEN Performed By: #### 2 4321-2, 2777-1, 72714-3 ####[facility]ORATORYCLIA [id number] [place] [address] [place] Sodium ?Tm Ur-sCncon 022 Sodium Unsp time (U) [Moles/Vol] 34 mmol/L Normal 14-216 [facility] Comment on above: Order Comment: Speci men Type: URINE SPECIMENOrdering Facility: [facility] Address: [address] [place] [address] Performed By: #### U KAYLIN, 80153-7, 15865-7, 32074-6 ####[facility] LABORATORYCLIA [id number] [place] [address] [place] Sodium SerPl-sCncon 06-15-19 22 Sodium [Moles/Vol] 159 mmol/L High 136-144 [facility] Comment on above: Order Comment: Speci men Type: BLOOD SPECIMENOrdering Facility: [facility] Address: [address] [place] [address] Performed By: #### P JULIANNE, 2951-2 ####[facility]ORATORYCLIA [id number] [address] [place] THERAPY NTon 06-15-2021 THERAPY NT Normal [facility] Urinalysis complete panel (U )on 06-15-2021 Bacteria LM.HPF (Urine sed) [#/Area] None Seen Normal None Seen [facility] Comment on above: Order Comment: Speci men Type: URINE SPECIMENOrdering Facility: [facility] Address: [address] [place] [address] Performed By: #### 2 4356-8 ####[facility]ORATORYCLIA [id number] [address] [place] Bilirubin Ql (U) Negative Normal Negative [facility] Comment on above: Order Comment: Speci men Type: URINE SPECIMENOrdering Facility: [facility] Address: [address] [place] [address] Performed By: #### 2 4356-8 ####[facility]ORATORYCLIA [id number] [address] [place] Clarity (Unsp spec) Cloudy Abnormal Clear [facility] Comment on above: Order Comment: Speci men Type: URINE SPECIMENOrdering Facility: [facility] Address: [address] [place] [address] Performed By: #### 2 4356-8 ####[facility]ORATORYCLIA [id number] [address] Color (U) Yellow Normal Yellow [facility] Comment on above: Order Comment: Speci men Type: URINE SPECIMENOrdering Facility: [facility] Address: [address] [place] [address] Performed By: #### 2 4356-8 ####[facility]ATORYCLIA [id number] [address] Epithelial cells LM.HPF (Urine sed) [#/Area] 7.1 /[HPF] Normal [facility] Comment on above: Order Comment: Speci men Type: URINE SPECIMENOrdering Facility: [facility] Address: [address] [place] [address] Performed By: #### 2 4356-8 ####[facility]ATORYCLIA [id number] [address] Glucose Test strip (U) [Mass/Vol] Negative Normal Negative [facility] Comment on above: Order Comment: Speci men Type: URINE SPECIMENOrdering Facility: [facility] Address: [address] [place] [address] Performed By: #### 2 4356-8 ####[facility]ORATORYCLIA [id number] [address] STATES [facility] Granular casts (Urine sed) [#/Area] /[LPF] Abnormal 0 /LPF [facility] Comment on above: Order Comment: Speci men Type: URINE SPECIMENOrdering Facility: [facility] Address: [address] [place] [address] Performed By: #### 2 4356-8 ####[facility]ATORYCLIA [id number] [address] Hemoglobin Ql (U) Moderate Abnormal Negative [facility] Comment on above: Order Comment: Speci men Type: URINE SPECIMENOrdering Facility: [facility] Address: [address] [place] [address] Performed By: #### 2 4356-8 ####[facility]ORATORYCLIA [id number] [address] Hyaline casts (Urine sed) [#/Area] /[LPF] Abnormal 0 /LPF [facility] Comment on above: Order Comment: Speci men Type: URINE SPECIMENOrdering Facility: [facility] Address: [address] [place] [address] Performed By: #### 2 4356-8 ####[facility] LABORATORYCLIA [id number] [address] STATES [facility] Ketones Ql (U) Negative Normal Negative [facility] Comment on above: Order Comment: Speci men Type: URINE SPECIMENOrdering Facility: [facility] Address: [address] [place] [address] Performed By: #### 2 4356-8 ####[facility]ATORYCLIA [id number] [address] Leukocyte esterase Test strip Ql (U) Negative Normal Negative [facility] Comment on above: Order Comment: Speci men Type: URINE SPECIMENOrdering Facility: [facility] Address: [address] [place] [address] Performed By: #### 2 4356-8 ####[facility]ATORYCLIA [id number] [address] [place] Nitrite Ql (U) Negative Normal Negative [facility] Comment on above: Order Comment: Speci men Type: URINE SPECIMENOrdering Facility: [facility] Address: [address] [place] [address] Performed By: #### 2 4356-8 ####[facility]ATORYCLIA [id number] [address] pH (U) 6.0 [pH] Normal 5.0-8.0 [facility] Comment on above: Order Comment: Speci men Type: URINE SPECIMENOrdering Facility: [facility] Address: [address] [place] [address] Performed By: #### 2 4356-8 ####[facility]ATORYCLIA [id number] [address] Protein (U) [Mass/Vol] 100 mg/dL Abnormal Negative [facility] Comment on above: Order Comment: Speci men Type: URINE SPECIMENOrdering Facility: [facility] Address: [address] [place] [address] Performed By: #### 2 4356-8 ####[facility]ATORYCLIA [id number] [address] RBC LM.HPF (Urine sed) [#/Area] 0-3 /HPF Normal 0-3 /HPF [facility] Comment on above: Order Comment: Speci men Type: URINE SPECIMENOrdering Facility: [facility] Address: [address] [place] [address] Performed By: #### 2 4356-8 ####[facility]ATORYCLIA [id number] [address] Specific gravity (U) [Rel density] 1.024 Normal 1.005-1.030 [facility] Comment on above: Order Comment: Speci men Type: URINE SPECIMENOrdering Facility: [facility] Address: [address] [place] [address] Performed By: #### 2 4356-8 ####[facility]ORATORYCLIA [id number] [address] Urobilinogen Ql (U) 0.2 EU/dL Normal 0.2-1.0 EU/dL [facility] Comment on above: Order Comment: Speci men Type: URINE SPECIMENOrdering Facility: [facility] Address: [address] [place] [address] Performed By: #### 2 4356-8 ####[facility]ATORYCLIA [id number] [address] WBC LM.HPF (Urine sed) [#/Area] 0-5 /HPF Normal 0-5 /HPF [facility] Comment on above: Order Comment: Speci men Type: URINE SPECIMENOrdering Facility: [facility] Address: [address] [place] [address] Performed By: #### 2 4356-8 ####[facility]ORATORYCLIA [id number] [place] [address] [place] XR CHEST 1V FRONTALon 2021 XR CHEST 1V FRONTAL Normal [facility] XR CHEST 1V FRONTAL PORTon 0 06-15-2021 XR CHEST 1V FRONTAL PORT Normal [facility] XR CHEST 1V FRONTAL PORT Normal [facility] aPTT PPPon 06-15-2021 aPTT Coag (PPP) [Time] 30.9 s Normal 23.0-32.4 [facility] Comment on above: Order Comment: Speci men Type: BLOOD SPECIMENOrdering Facility: [facility] Address: [address] [place] [address] Performed By: #### 3 4528-0, 74208-6 ####[facility]ATORYCLIA [id number] [place] [address] [place] Basic metabolic 2000 panelon 06-14-2021 Anion gap [Moles/Vol] 8 mmol/L Low 9-18 [facility] Comment on above: Order Comment: Speci men Type: BLOOD SPECIMEN Performed By: #### 2 4321-2, 2776-05, ####[facility]ATORYCLIA [id number] [place] [address] [place] Calcium [Mass/Vol] 8.9 mg/dL Normal 8.5-10.2 [facility] Comment on above: Order Comment: Speci men Type: BLOOD SPECIMEN Performed By: #### 2 4321-2, 2776-05, ####[facility]ATORYCLIA [id number] [place] [address] [place] Chloride [Moles/Vol] 121 mmol/L High 97-105 [facility] Comment on above: Order Comment: Speci men Type: BLOOD SPECIMEN Performed By: #### 2 4321-2, 2776-05, ####[facility]ORATORYCLIA [id number] [place], [place] [address] [place] [address] [place] [facility] CO2 [Moles/Vol] 30 mmol/L Normal 22-30 [facility] Comment on above: Order Comment: Speci men Type: BLOOD SPECIMEN Performed By: #### 2 4321-2, 2776-05, ####[facility]ATORYCLIA [id number] [place], [place] [address] [place] [address] [place] Creatinine [Mass/Vol] 0.78 mg/dL Normal 0.73-1.22 [facility] Comment on above: Order Comment: Speci men Type: BLOOD SPECIMEN Performed By: #### 2 4321-2, 2776-05, ####[facility]ATORYCLIA [id number] [address] [place] GFR/1.73 sq M.predicted MDRD (S/P/Bld) [Vol rate/Area] mL/min/{1.73_m2} Normal [facility] Comment on above: Order Comment: Speci men Type: BLOOD SPECIMEN Result Comment: >60e GFR (Estimated GFR) Units of measure: mL/min/1.73 meters squaredeGFR is derived from the reexpressed MDRD Study equation using the following parameters: serum creatinine, age, gender and race. The creatinine assay has been calibrated to be traceable to [employer]. An eGFR <60 mL/min/1.73m2 for >3 months is consistent with chronic kidney disease. Refer to KDOQI guidelines for clinical interpretation. In patients with unstable renal function, e.g. those with acute kidney injury, the eGFR may not accurately reflect actual GFR. Performed By: #### 2 4321-2, 2776-05, ####[facility]ORATORYCLIA [id number] [place], [place] [address] [place] [address] [place] Glucose [Mass/Vol] 132 mg/dL High 74-99 [facility] Comment on above: Order Comment: Speci men Type: BLOOD SPECIMEN Result Comment: The [place] [employer] (ADA) provides guidance for cutoff [...] Standards of Medical Care in Diabetes 2016, [place] [employer]. Diabetes Care. 2016.39(Suppl 1). Performed By: #### 2 4321-2, 2776-05, ####[facility]ORATORYCLIA [id number] [place] [address] [place] Potassium [Moles/Vol] 3.7 mmol/L Normal 3.7-5.1 [facility] Comment on above: Order Comment: Speci men Type: BLOOD SPECIMEN Performed By: #### 2 4321-2, 2776-05, ####[facility]ATORYCLIA [id number] [address] STATES [facility] Sodium [Moles/Vol] 159 mmol/L High 136-144 [facility] Comment on above: Order Comment: Speci men Type: BLOOD SPECIMEN Performed By: #### 2 4321-2, 2776-05, ####[facility]ATORYCLIA [id number] [place] [address] [place] Urea nitrogen [Mass/Vol] 35 mg/dL High 9-24 [facility] Comment on above: Order Comment: Speci men Type: BLOOD SPECIMEN Performed By: #### 2 4321-2, 2776-05, ####[facility]ATORYCLIA [id number] [address] [place] CASE MANAGEMon 06-14-2021 CASE MANAGEM Normal [facility] CBC panel Auto (Bld)on 06-14 Erythrocyte distribution width (RBC) [Ratio] 16.2 % High 11.5-15.0 [facility] Comment on above: Order Comment: Speci men Type: BLOOD SPECIMEN Performed By: #### 5 8410-2 ####[facility]ORATORYCLIA [id number] [address] Hematocrit (Bld) [Volume fraction] 35.2 % Low 39.0-51.0 [facility] Comment on above: Order Comment: Speci men Type: BLOOD SPECIMEN Performed By: #### 5 8410-2 ####[facility]ATORYCLIA [id number] [address] Hemoglobin (Bld) [Mass/Vol] 10.1 g/dL Low 13.0-17.0 [facility] Comment on above: Order Comment: Speci men Type: BLOOD SPECIMEN Performed By: #### 5 8410-2 ####[facility]ORATORYCLIA [id number] [address] MCH (RBC) [Entitic mass] 27.2 pg Normal 26.0-34.0 [facility] Comment on above: Order Comment: Speci men Type: BLOOD SPECIMEN Performed By: #### 5 8410-2 ####[facility]ATORYCLIA [id number] [address] MCHC (RBC) [Mass/Vol] 28.7 g/dL Low 30.5-36.0 [facility] Comment on above: Order Comment: Speci men Type: BLOOD SPECIMEN Performed By: #### 5 8410-2 ####[facility]ORATORYCLIA [id number] [address] MCV (RBC) [Entitic vol] 94.6 fL Normal 80.0-100.0 [facility] Comment on above: Order Comment: Speci men Type: BLOOD SPECIMEN Performed By: #### 5 8410-2 ####[facility]ATORYCLIA [id number] [address] Nucleated RBC (Bld) [#/Vol] 10*3/uL Normal <0.01 [facility] Comment on above: Order Comment: Speci men Type: BLOOD SPECIMEN Performed By: #### 5 8410-2 ####[facility]ORATORYCLIA [id number] [address] Platelet mean volume (Bld) [Entitic vol] 11.0 fL Normal 9.0-12.7 [facility] Comment on above: Order Comment: Speci men Type: BLOOD SPECIMEN Performed By: #### 5 8410-2 ####[facility]ATORYCLIA [id number] [address] Platelets (Bld) [#/Vol] 287 10*3/uL Normal 150-400 [facility] Comment on above: Order Comment: Speci men Type: BLOOD SPECIMEN Performed By: #### 5 8410-2 ####[facility]ATORYCLIA [id number] [address] RBC (Bld) [#/Vol] 3.72 10*6/uL Low 4.20-6.00 [facility] Comment on above: Order Comment: Speci men Type: BLOOD SPECIMEN Performed By: #### 5 8410-2 ####[facility]ATORYCLIA [id number] [address] WBC (Bld) [#/Vol] 12.23 10*3/uL High 3.70-11.00 [facility] Comment on above: Order Comment: Speci men Type: BLOOD SPECIMEN Performed By: #### 5 8410-2 ####[facility]ORATORYCLIA [id number] [address] Comprehensive metabolic 2000 panelon 06-14-2021 Albumin [Mass/Vol] 3.1 g/dL Low 3.9-4.9 [facility] Comment on above: Order Comment: Speci men Type: BLOOD SPECIMEN Performed By: #### 2 4323-8, HSTNT, 2776-05, ####[facility] LABORATORYCLIA [id number] [place], [place] [address] [place] [address] [place] [facility] ALP [Catalytic activity/Vol] 72 U/L Normal 38-113 [facility] Comment on above: Order Comment: Speci men Type: BLOOD SPECIMEN Performed By: #### 2 4323-8, HSTNT, 2776-05, ####[facility] LABORATORYCLIA [id number] [place], [place] [address] [place] [address] [place] [facility] ALT With P-5'-P [Catalytic activity/Vol] 57 U/L High 10-54 [facility] Comment on above: Order Comment: Speci men Type: BLOOD SPECIMEN Performed By: #### 2 4323-8, HSTNT, 2776-05, ####[facility] LABORATORYCLIA [id number] [place], [place] [address] [place] [address] Anion gap [Moles/Vol] 9 mmol/L Normal 9-18 [facility] Comment on above: Order Comment: Speci men Type: BLOOD SPECIMEN Performed By: #### 2 4323-8, HSTNT, 2776-05, ####[facility]ORATORYCLIA [id number] [address] AST With P-5'-P [Catalytic activity/Vol] 33 U/L Normal 14-40 [facility] Comment on above: Order Comment: Speci men Type: BLOOD SPECIMEN Performed By: #### 2 4323-8, HSTNT, 2776-05, ####[facility]ORATORYCLIA [id number] [place], [place] [address] [place] [address] OF [facility] Bilirubin [Mass/Vol] 0.5 mg/dL Normal 0.2-1.3 [facility] Comment on above: Order Comment: Speci men Type: BLOOD SPECIMEN Performed By: #### 2 4323-8, HSTNT, 2776-05, ####[facility]ORATORYCLIA [id number] [facility] [address] OF [facility] Calcium [Mass/Vol] 8.8 mg/dL Normal 8.5-10.2 [facility] Comment on above: Order Comment: Speci men Type: BLOOD SPECIMEN Performed By: #### 2 4323-8, HSTNT, 2776-05, ####[facility]ORATORYCLIA [id number] [address] Chloride [Moles/Vol] 124 mmol/L High 97-105 [facility] Comment on above: Order Comment: Speci men Type: BLOOD SPECIMEN Performed By: #### 2 4323-8, HSTNT, 2776-05, ####[facility]ORATORYCLIA [id number] [address] CO2 [Moles/Vol] 29 mmol/L Normal 22-30 [facility] Comment on above: Order Comment: Speci men Type: BLOOD SPECIMEN Performed By: #### 2 4323-8, HSTNT, 2776-05, ####[facility]ORATORYCLIA [id number] [address] [place] Creatinine [Mass/Vol] 0.73 mg/dL Normal 0.73-1.22 [facility] Comment on above: Order Comment: Speci men Type: BLOOD SPECIMEN Performed By: #### 2 4323-8, HSTNT, 2776-05, ####[facility]ORATORYCLIA [id number] [address] [place] GFR/1.73 sq M.predicted MDRD (S/P/Bld) [Vol rate/Area] mL/min/{1.73_m2} Normal [facility] Comment on above: Order [...] GFR. Performed By: #### 2 4323-8, HSTNT, ####[facility]ORATORYCLIA [id number] [place] [address] [place] Glucose [Mass/Vol] 137 mg/dL High 74-99 [facility] Comment on above: Order Comment: Speci men Type: BLOOD SPECIMEN Result Comment: The [place] Diabetes [employer] (ADA) provides guidance for cutoff [...] Standards of Medical Care in Diabetes 2016, [place] [employer]. Diabetes Care. 2016.39(Suppl 1). Performed By: #### 2 4323-8, HSTNT, ####[facility]ORATORYCLIA [id number] [address] [place] Potassium [Moles/Vol] 3.6 mmol/L Low 3.7-5.1 [facility] Comment on above: Order Comment: Speci men Type: BLOOD SPECIMEN Performed By: #### 2 4323-8, HSTNT, ####[facility]ATORYCLIA [id number] [address] [place] Protein [Mass/Vol] 5.9 g/dL Low 6.3-8.0 [facility] Comment on above: Order Comment: Speci men Type: BLOOD SPECIMEN Performed By: #### 2 4323-8, HSTNT, 7-, ####[facility]ATORYCLIA [id number] [address] Sodium [Moles/Vol] 162 mmol/L High 136-144 [facility] Comment on above: Order Comment: Speci men Type: BLOOD SPECIMEN Performed By: #### 2 4323-8, HSTNT, 2776-, ####[facility]ORATORYCLIA [id number] [address] Urea nitrogen [Mass/Vol] 33 mg/dL High 9-24 [facility] Comment on above: Order Comment: Speci men Type: BLOOD SPECIMEN Performed By: #### 2 4323-8, HSTNT, 2776-05, ####[facility]ORATORYCLIA [id number] [address] HIGH SENSITIVITY TROPONIN To n 06-14-2021 HIGH SENSITIVITY TAMIKO 22 ng/L High <12 [facility] Comment on above: Order [...] day MACE. Performed By: #### H STNT ####[facility]ORATORYCLIA [id number] [address] HIGH SENSITIVITY TAMIKO 22 ng/L High <12 [facility] Comment on above: Order [...] Performed By: #### 2 4323-8, HSTNT, 2776-05, ####[facility]ORATORYCLIA [id number] [place], [place] [address] [place] [address] Magnesium SerPl-mCncon 06-14 Magnesium [Mass/Vol] 2.9 mg/dL High 1.7-2.3 [facility] Comment on above: Order Comment: Speci men Type: BLOOD SPECIMEN Performed By: #### 2 4323-8, HSTNT, 2776-05, ####[facility]ORATORYCLIA [id number] [place], [place] [address] [place] [address] Magnesium [Mass/Vol] 3.0 mg/dL High 1.7-2.3 [facility] Comment on above: Order Comment: Speci men Type: BLOOD SPECIMEN Performed By: #### 2 4321-2, 2776-05, ####[facility]ORATORYCLIA [id number] [address] NURSING PROGon 06-14-2021 NURSING PROG Normal [facility] NUTRITIONon 06-14-2021 NUTRITION Normal [facility] Phosphate SerPl-mCncon 06-14 Phosphate [Mass/Vol] 2.4 mg/dL Low 2.7-4.8 [facility] Comment on above: Order Comment: Speci men Type: BLOOD SPECIMEN Performed By: #### 2 4323-8, HSTNT, 2776-05, ####[facility]ORATORYCLIA [id number] [place], [place] [address] [place] [address] Phosphate [Mass/Vol] 3.2 mg/dL Normal 2.7-4.8 [facility] Comment on above: Order Comment: Speci men Type: BLOOD SPECIMEN Performed By: #### 2 4321-2, 2776-05, ####[facility]ORATORYCLIA [id number] [place] [address] [facility] [place] THERAPY NTon 06-14-2021 THERAPY NT Normal [facility] THERAPY NT Normal [facility] THERAPY NT Normal [facility] US DVT LOWER BILon US DVT LOWER RAINER Normal [facility] ALLIED HEALTHon 06-13-2021 ALLIED HEALTH Normal [facility] Basic metabolic 2000 panelon 06-13-2021 Anion gap [Moles/Vol] 7 mmol/L Low 9-18 [facility] Comment on above: Order Comment: Speci men Type: BLOOD SPECIMEN Performed By: #### 2 4321-2, , 2776-05 ####[facility]ORATORYCLIA [id number] [place] [address] [place] Calcium [Mass/Vol] 8.8 mg/dL Normal 8.5-10.2 [facility] Comment on above: Order Comment: Speci men Type: BLOOD SPECIMEN Performed By: #### 2 4321-2, , 2776-05 ####[facility]ORATORYCLIA [id number] [place] [address] [place] Chloride [Moles/Vol] 120 mmol/L High 97-105 [facility] Comment on above: Order Comment: Speci men Type: BLOOD SPECIMEN Performed By: #### 2 4321-2, , 2776-05 ####[facility]ORATORYCLIA [id number] [place] [address] [place] CO2 [Moles/Vol] 28 mmol/L Normal 22-30 [facility] Comment on above: Order Comment: Speci men Type: BLOOD SPECIMEN Performed By: #### 2 4321-2, , 2776-05 ####[facility]ORATORYCLIA [id number] [place] [address] [place] Creatinine [Mass/Vol] 0.78 mg/dL Normal 0.73-1.22 [facility] Comment on above: Order Comment: Speci men Type: BLOOD SPECIMEN Performed By: #### 2 4321-2, , 2776-05 ####[facility]ORATORYCLIA [id number] [place] [address] [place] GFR/1.73 sq M.predicted MDRD (S/P/Bld) [Vol rate/Area] mL/min/{1.73_m2} Normal [facility] Comment on above: Order [...] actual GFR. Performed By: #### 2 4321-2, 91932-2, 7- ####[facility]ORATORYCLIA [id number] [place] [address] [place] Glucose [Mass/Vol] 126 mg/dL High 74-99 [facility] Comment on above: Order Comment: Speci men Type: BLOOD SPECIMEN Result Comment: The [place] Diabetes [employer] (ADA) provides guidance for cutoff [...] Standards of Medical Care in Diabetes 2016, [place] [employer]. Diabetes Care. 2016.39(Suppl 1). Performed By: #### 2 4321-2, 08489-3, 7- ####[facility]ORATORYCLIA [id number] [place] [address] [place] Potassium [Moles/Vol] 3.6 mmol/L Low 3.7-5.1 [facility] Comment on above: Order Comment: Speci men Type: BLOOD SPECIMEN Performed By: #### 2 4321-2, , 2776-05 ####[facility]ORATORYCLIA [id number] [place], [place] [address] [place] [address] STATES OF [facility] Sodium [Moles/Vol] 155 mmol/L High 136-144 [facility] Comment on above: Order Comment: Speci men Type: BLOOD SPECIMEN Performed By: #### 2 4321-2, , 2776-05 ####[facility]ORATORYCLIA [id number] [place] [address] [place] Urea nitrogen [Mass/Vol] 36 mg/dL High 9-24 [facility] Comment on above: Order Comment: Speci men Type: BLOOD SPECIMEN Performed By: #### 2 4321-2, , 2776-05 ####[facility]ATORYCLIA [id number] [address] [place] Anion gap [Moles/Vol] 6 mmol/L Low 9-18 [facility] Comment on above: Order Comment: Speci men Type: BLOOD SPECIMEN Performed By: #### 2 4321-2, 2776-05, ####[facility]ORATORYCLIA [id number] [place] [address] [place] Calcium [Mass/Vol] 6.5 mg/dL Low 8.5-10.2 [facility] Comment on above: Order Comment: Speci men Type: BLOOD SPECIMEN Performed By: #### 2 4321-2, 2776-05, ####[facility]ATORYCLIA [id number] [place] [address] [place] Chloride [Moles/Vol] 124 mmol/L High 97-105 [facility] Comment on above: Order Comment: Speci men Type: BLOOD SPECIMEN Performed By: #### 2 4321-2, 2776-05, ####[facility]ATORYCLIA [id number] [place], [place] [address] [place] [address] OF [facility] CO2 [Moles/Vol] 24 mmol/L Normal 22-30 [facility] Comment on above: Order Comment: Speci men Type: BLOOD SPECIMEN Performed By: #### 2 4321-2, 2776-05, ####[facility] [facility]ATORYCLIA [id number] [address] STATES OF [facility] Creatinine [Mass/Vol] 0.61 mg/dL Low 0.73-1.22 [facility] Comment on above: Order Comment: Speci men Type: BLOOD SPECIMEN Performed By: #### 2 4321-2, 2776-05, ####[facility] [facility]ATORYCLIA [id number] [address] GFR/1.73 sq M.predicted MDRD (S/P/Bld) [Vol rate/Area] mL/min/{1.73_m2} Normal [facility] Comment on above: Order [...] GFR. Performed By: #### 2 4321-2, 2776-05, ####[facility] [facility]ATORYCLIA [id number] [address] STATES OF [facility] Glucose [Mass/Vol] 100 mg/dL High 74-99 [facility] Comment on above: Order Comment: Speci men Type: BLOOD SPECIMEN Result Comment: The [place] [employer] (ADA) provides guidance for cutoff [...] Standards of Medical Care in Diabetes 2016, [place] [employer]. Diabetes Care. 2016.39(Suppl 1). Performed By: #### 2 4321-2, 2776-05, ####[facility] [facility]ATORYCLIA [id number] [address] Potassium [Moles/Vol] 2.7 mmol/L Low 3.7-5.1 [facility] Comment on above: Order Comment: Speci men Type: BLOOD SPECIMEN Performed By: #### 2 4321-2, 2776-05, ####[facility]ATORYCLIA [id number] [address] Sodium [Moles/Vol] 154 mmol/L High 136-144 [facility] Comment on above: Order Comment: Speci men Type: BLOOD SPECIMEN Performed By: #### 2 4321-2, 2776-05, ####[facility]ATORYCLIA [id number] [address] Urea nitrogen [Mass/Vol] 29 mg/dL High 9-24 [facility] Comment on above: Order Comment: Speci men Type: BLOOD SPECIMEN Performed By: #### 2 4321-2, 2776-05, ####[facility]ATORYCLIA [id number] [address] CASE MANAGEMon 06-13-2021 CASE MANAGEM Normal [facility] CBC panel Auto (Bld)on 06-13 Erythrocyte distribution width (RBC) [Ratio] 15.9 % High 11.5-15.0 [facility] Comment on above: Order Comment: Speci men Type: BLOOD SPECIMEN Performed By: #### 5 8410-2 ####[facility]ATORYCLIA [id number] [address] Hematocrit (Bld) [Volume fraction] 34.3 % Low 39.0-51.0 [facility] Comment on above: Order Comment: Speci men Type: BLOOD SPECIMEN Performed By: #### 5 8410-2 ####[facility]ATORYCLIA [id number] [address] Hemoglobin (Bld) [Mass/Vol] 9.9 g/dL Low 13.0-17.0 [facility] Comment on above: Order Comment: Speci men Type: BLOOD SPECIMEN Performed By: #### 5 8410-2 ####[facility]ATORYCLIA [id number] [address] MCH (RBC) [Entitic mass] 27.3 pg Normal 26.0-34.0 [facility] Comment on above: Order Comment: Speci men Type: BLOOD SPECIMEN Performed By: #### 5 8410-2 ####[facility]ATORYCLIA [id number] [address] MCHC (RBC) [Mass/Vol] 28.9 g/dL Low 30.5-36.0 [facility] Comment on above: Order Comment: Speci men Type: BLOOD SPECIMEN Performed By: #### 5 8410-2 ####[facility]ATORYCLIA [id number] [address] MCV (RBC) [Entitic vol] 94.5 fL Normal 80.0-100.0 [facility] Comment on above: Order Comment: Speci men Type: BLOOD SPECIMEN Performed By: #### 5 8410-2 ####[facility]ORYCLIA [id number] [address] Nucleated RBC (Bld) [#/Vol] 10*3/uL Normal <0.01 [facility] Comment on above: Order Comment: Speci men Type: BLOOD SPECIMEN Performed By: #### 5 8410-2 ####[facility]ORYCLIA [id number] [address] Platelet mean volume (Bld) [Entitic vol] 11.3 fL Normal 9.0-12.7 [facility] Comment on above: Order Comment: Speci men Type: BLOOD SPECIMEN Performed By: #### 5 8410-2 ####[facility]ATORYCLIA [id number] [address] Platelets (Bld) [#/Vol] 269 10*3/uL Normal 150-400 [facility] Comment on above: Order Comment: Speci men Type: BLOOD SPECIMEN Performed By: #### 5 8410-2 ####[facility]ORYCLIA [id number] [address] RBC (Bld) [#/Vol] 3.63 10*6/uL Low 4.20-6.00 [facility] Comment on above: Order Comment: Speci men Type: BLOOD SPECIMEN Performed By: #### 5 8410-2 ####[facility]ATORYCLIA [id number] [address] WBC (Bld) [#/Vol] 12.77 10*3/uL High 3.70-11.00 [facility] Comment on above: Order Comment: Speci men Type: BLOOD SPECIMEN Performed By: #### 5 8410-2 ####[facility]ATORYCLIA [id number] [address] Gas and Carbon monoxide pane l (BldV)on 06-13-2021 Base excess Calc (BldV) [Moles/Vol] 5.7 mmol/L High 0-2 [facility] Comment on above: Order Comment: Speci men Type: VENOUS BLOOD SPECIMEN Performed By: #### 2 4344-4 ####[facility]ATORYCLIA [id number] [address] Body temperature 99.5 [degF] Normal [facility] Comment on above: Order Comment: Speci men Type: VENOUS BLOOD SPECIMEN Performed By: #### 2 4344-4 ####[facility]ORYCLIA [id number] [address] CALCIUM IONIZED, PH CORRECTED 1.24 mmol/L Normal 1.08-1.30 [facility] Comment on above: Order Comment: Speci men Type: VENOUS BLOOD SPECIMEN Performed By: #### 2 4344-4 ####[facility]ORYCLIA [id number] [address] Calcium.ionized (BldV) [Mass/Vol] 1.23 mmol/L Normal 1.08-1.30 [facility] Comment on above: Order Comment: Speci men Type: VENOUS BLOOD SPECIMEN Performed By: #### 2 4344-4 ####[facility]ATORYCLIA [id number] [address] OF [facility] Carboxyhemoglobin (BldV) [Mass fraction] 1.2 % Normal 0.0-2.0 [facility] Comment on above: Order Comment: Speci men Type: VENOUS BLOOD SPECIMEN Result Comment: Carb oxyhemoglobin Reference Range for Smokers: 2.0-8.0% Performed By: #### 2 4344-4 ####[facility]ORYCLIA [id number] [address] CO2 (BldV) [Partial pressure] 48 mm[Hg] Normal 42-55 [facility] Comment on above: Order Comment: Speci men Type: VENOUS BLOOD SPECIMEN Performed By: #### 2 4344-4 ####[facility]ORYCLIA [id number] [address] [place] CO2 [Moles/Vol] 28.2 mmol/L Normal 25-29 [facility] Comment on above: Order Comment: Speci men Type: VENOUS BLOOD SPECIMEN Performed By: #### 2 4344-4 ####[facility]ORYCLIA [id number] [address] [place] CO2 adjusted to patient's actual temperature (BldV) [Partial pressure] 49 mmHg Normal 42-55 [facility] Comment on above: Order Comment: Speci men Type: VENOUS BLOOD SPECIMEN Performed By: #### 2 4344-4 ####[facility]ATORYCLIA [id number] [address] Glucose [Mass/Vol] 131 mg/dL High 60-105 [facility] Comment on above: Order Comment: Speci men Type: VENOUS BLOOD SPECIMEN Performed By: #### 2 4344-4 ####[facility]ORYCLIA [id number] [address] OF [facility] HCO3 (Bld) [Moles/Vol] 30.6 mmol/L High 24-28 [facility] Comment on above: Order Comment: Speci men Type: VENOUS BLOOD SPECIMEN Performed By: #### 2 4344-4 ####[facility]ORYCLIA [id number] [address] Hematocrit (Bld) [Volume fraction] 32.8 % Low 39.0-51.0 [facility] Comment on above: Order Comment: Speci men Type: VENOUS BLOOD SPECIMEN Performed By: #### 2 4344-4 ####[facility]ORYCLIA [id number] [address] Hemoglobin (Bld) [Mass/Vol] 10.6 g/dL Low 13.0-17.0 [facility] Comment on above: Order Comment: Speci men Type: VENOUS BLOOD SPECIMEN Performed By: #### 2 4344-4 ####[facility]ORYCLIA [id number] [address] [place] 6 Liters/min Normal [facility] Comment on above: Order Comment: Speci men Type: VENOUS BLOOD SPECIMEN Performed By: #### 2 4344-4 ####[facility]ORYCLIA [id number] [address] OF [place] Methemoglobin (Bld) [Mass fraction] 1.0 % Normal 0.0-1.5 [facility] Comment on above: Order Comment: Speci men Type: VENOUS BLOOD SPECIMEN Performed By: #### 2 4344-4 ####[facility]ORYCLIA [id number] [address] O2 THERAPY NC = Nasal Cannula Normal [facility] Comment on above: Order Comment: Speci men Type: VENOUS BLOOD SPECIMEN Performed By: #### 2 4344-4 ####[facility]ORYCLIA [id number] [address] Oxygen (BldV) [Partial pressure] 42 mm[Hg] Normal 35-45 [facility] Comment on above: Order Comment: Speci men Type: VENOUS BLOOD SPECIMEN Performed By: #### 2 4344-4 ####[facility]ORYCLIA [id number] [address] Oxygen adjusted to patient's actual temperature (BldV) [Partial pressure] 43.8 mmHg Normal 35-45 [facility] Comment on above: Order Comment: Speci men Type: VENOUS BLOOD SPECIMEN Performed By: #### 2 4344-4 ####[facility]ORATORYCLIA [id number] [address] Oxygen saturation in Blood 76.7 % Normal 60-85 [facility] Comment on above: Order Comment: Speci men Type: VENOUS BLOOD SPECIMEN Performed By: #### 2 4344-4 ####[facility]ORYCLIA [id number] [address] OF [place] Oxyhemoglobin (BldV) [Mass fraction] 75 % Normal 60-85 [facility] Comment on above: Order Comment: Speci men Type: VENOUS BLOOD SPECIMEN Performed By: #### 2 4344-4 ####[facility]ORYCLIA [id number] [address] OF [facility] pH (BldV) 7.42 [pH] Normal 7.32-7.42 [facility] Comment on above: Order Comment: Speci men Type: VENOUS BLOOD SPECIMEN Performed By: #### 2 4344-4 ####[facility]ORYCLIA [id number] [address] [place] pH adjusted to patient's actual temperature (BldV) 7.41 Normal 7.32-7.42 [facility] Comment on above: Order Comment: Speci men Type: VENOUS BLOOD SPECIMEN Performed By: #### 2 4344-4 ####[facility]ORYCLIA [id number] [address] [place] Potassium [Moles/Vol] 3.5 mmol/L Normal 3.5-5.0 [facility] Comment on above: Order Comment: Speci men Type: VENOUS BLOOD SPECIMEN Performed By: #### 2 4344-4 ####[facility]ATORYCLIA [id number] [address] Sodium [Moles/Vol] 157 mmol/L High 136-144 [facility] Comment on above: Order Comment: Speci men Type: VENOUS BLOOD SPECIMEN Performed By: #### 2 4344-4 ####[facility]ATORYCLIA [id number] [address] [place] Magnesium SerPl-mCncon 06-13 Magnesium [Mass/Vol] 3.0 mg/dL High 1.7-2.3 [facility] Comment on above: Order Comment: Speci men Type: BLOOD SPECIMEN Performed By: #### 2 4321-2, , 2776-05 ####[facility]ATORYCLIA [id number] [address] [place] Magnesium [Mass/Vol] 2.2 mg/dL Normal 1.7-2.3 [facility] Comment on above: Order Comment: Speci men Type: BLOOD SPECIMEN Performed By: #### 2 4321-2, 2776-05, ####[facility]ORYCLIA [id number] [place] [address] [place] Phosphate SerPl-mCncon 06-13 Phosphate [Mass/Vol] 2.2 mg/dL Low 2.7-4.8 [facility] Comment on above: Order Comment: Speci men Type: BLOOD SPECIMEN Performed By: #### 2 4321-2, 83815-9, 2776-05 ####[facility]ORYCLIA [id number] [place], [place] [address] [place] [address] STATES [facility] Phosphate [Mass/Vol] 1.8 mg/dL Low 2.7-4.8 [facility] Comment on above: Order Comment: Speci men Type: BLOOD SPECIMEN Performed By: #### 2 4321-2, 2776-, ####[facility]ATORYCLIA [id number] [place], [place] [address] [place] [address] XR CHEST 1V FRONTALon 2021 XR CHEST 1V FRONTAL Normal [facility] ALLIED HEALTHon 06-12-2021 ALLIED HEALTH Normal [facility] BRIEF OP NOTon 06-12-2021 BRIEF OP NOT Normal [facility] Bacteria Fld Culton 06-12-19 22 Bacteria identified Cx Nom (Body fld) CULTURE, BODY FLD: No growth 5 days GRAM STAIN: No organisms seen Moderate Polymorphonuclear leukocytes Normal [facility] Comment on above: Performed By: #### 6 11-4 ####[facility]ATORYCLIA [id number] [address] Basic metabolic 2000 panelon 06-12-2021 Anion gap [Moles/Vol] 6 mmol/L Low 9-18 [facility] Comment on above: Order Comment: Speci men Type: BLOOD SPECIMEN Performed By: #### 2 777-1, 83210-9, ####[facility]ATORYCLIA [id number] [place], [place] [address] [place] [address] [place] Calcium [Mass/Vol] 8.7 mg/dL Normal 8.5-10.2 [facility] Comment on above: Order Comment: Speci men Type: BLOOD SPECIMEN Performed By: #### 2 777-1, 94326-5, ####[facility]ORYCLIA [id number] [place], [place] [address] [place] [address] [place] Chloride [Moles/Vol] 118 mmol/L High 97-105 [facility] Comment on above: Order Comment: Speci men Type: BLOOD SPECIMEN Performed By: #### 2 777-1, , ####[facility]ATORYCLIA [id number] [place], [place] [address] [place] [address] [place] CO2 [Moles/Vol] 28 mmol/L Normal 22-30 [facility] Comment on above: Order Comment: Speci men Type: BLOOD SPECIMEN Performed By: #### 2 777-1, , ####[facility]ATORYCLIA [id number] [address] STATES [facility] Creatinine [Mass/Vol] 0.77 mg/dL Normal 0.73-1.22 [facility] Comment on above: Order Comment: Speci men Type: BLOOD SPECIMEN Performed By: #### 2 777-1, , ####[facility]ATORYCLIA [id number] [address] [place] GFR/1.73 sq M.predicted MDRD (S/P/Bld) [Vol rate/Area] mL/min/{1.73_m2} Normal [facility] Comment on above: Order [...] actual GFR. Performed By: #### 2 777-1, 53017-8, ####[facility]ATORYCLIA [id number] [place] [address] [place] Glucose [Mass/Vol] 116 mg/dL High 74-99 [facility] Comment on above: Order Comment: Speci men Type: BLOOD SPECIMEN Result Comment: The [place] Diabetes [employer] (ADA) provides guidance for cutoff [...] Standards of Medical Care in Diabetes 2016, [place] [employer]. Diabetes Care. 2016.39(Suppl 1). Performed By: #### 2 777-1, , ####[facility]ATORYCLIA [id number] [address] STATES OF [facility] Potassium [Moles/Vol] 4.0 mmol/L Normal 3.7-5.1 [facility] Comment on above: Order Comment: Speci men Type: BLOOD SPECIMEN Performed By: #### 2 777-1, , ####[facility]ATORYCLIA [id number] [address] STATES [facility] Sodium [Moles/Vol] 152 mmol/L High 136-144 [facility] Comment on above: Order Comment: Speci men Type: BLOOD SPECIMEN Performed By: #### 2 777-1, , ####[facility]ATORYCLIA [id number] [address] [place] Urea nitrogen [Mass/Vol] 34 mg/dL High 9-24 [facility] Comment on above: Order Comment: Speci men Type: BLOOD SPECIMEN Performed By: #### 2 777-1, , ####[facility]ATORYCLIA [id number] [address] OF [facility] CBC panel Auto (Bld)on 06-12 Erythrocyte distribution width (RBC) [Ratio] 16.1 % High 11.5-15.0 [facility] Comment on above: Order Comment: Speci men Type: BLOOD SPECIMEN Performed By: #### 5 8410-2 ####[facility]ATORYCLIA [id number] [address] Hematocrit (Bld) [Volume fraction] 32.8 % Low 39.0-51.0 [facility] Comment on above: Order Comment: Speci men Type: BLOOD SPECIMEN Performed By: #### 5 8410-2 ####[facility]ATORYCLIA [id number] [address] Hemoglobin (Bld) [Mass/Vol] 9.9 g/dL Low 13.0-17.0 [facility] Comment on above: Order Comment: Speci men Type: BLOOD SPECIMEN Performed By: #### 5 8410-2 ####[facility]ATORYCLIA [id number] [address] MCH (RBC) [Entitic mass] 28.4 pg Normal 26.0-34.0 [facility] Comment on above: Order Comment: Speci men Type: BLOOD SPECIMEN Performed By: #### 5 8410-2 ####[facility]ORYCLIA [id number] [address] MCHC (RBC) [Mass/Vol] 30.2 g/dL Low 30.5-36.0 [facility] Comment on above: Order Comment: Speci men Type: BLOOD SPECIMEN Performed By: #### 5 8410-2 ####[facility]ATORYCLIA [id number] [address] MCV (RBC) [Entitic vol] 94.3 fL Normal 80.0-100.0 [facility] Comment on above: Order Comment: Speci men Type: BLOOD SPECIMEN Performed By: #### 5 8410-2 ####[facility]ATORYCLIA [id number] [address] Nucleated RBC (Bld) [#/Vol] 10*3/uL Normal <0.01 [facility] Comment on above: Order Comment: Speci men Type: BLOOD SPECIMEN Performed By: #### 5 8410-2 ####[facility]ORYCLIA [id number] [address] Platelet mean volume (Bld) [Entitic vol] 11.2 fL Normal 9.0-12.7 [facility] Comment on above: Order Comment: Speci men Type: BLOOD SPECIMEN Performed By: #### 5 8410-2 ####[facility]ATORYCLIA [id number] [address] Platelets (Bld) [#/Vol] 218 10*3/uL Normal 150-400 [facility] Comment on above: Order Comment: Speci men Type: BLOOD SPECIMEN Performed By: #### 5 8410-2 ####[facility]ORYCLIA [id number] [address] RBC (Bld) [#/Vol] 3.48 10*6/uL Low 4.20-6.00 [facility] Comment on above: Order Comment: Speci men Type: BLOOD SPECIMEN Performed By: #### 5 8410-2 ####[facility]ATORYCLIA [id number] [address] OF [facility] WBC (Bld) [#/Vol] 13.33 10*3/uL High 3.70-11.00 [facility] Comment on above: Order Comment: Speci men Type: BLOOD SPECIMEN Performed By: #### 5 8410-2 ####[facility]ATORYCLIA [id number] [address] OF [facility] CONSULT PROGon 06-12-2021 CONSULT PROG Normal [facility] CT [facility]N PL[address] PERIT/RETROP FL BIon 06-12-[address] PERIT/RETROP FL BI Normal [facility] HISTORY PHYSICALon 02-06-202 2 HISTORY PHYSICAL Normal [facility] Magnesium SerPl-mCncon 06-12 Magnesium [Mass/Vol] 2.7 mg/dL High 1.7-2.3 [facility] Comment on above: Order Comment: Speci men Type: BLOOD SPECIMEN Performed By: #### 2 777-1, 10890-9, 59276-4 ####[facility]ATORYCLIA [id number] [address] STATES [facility] PT panel Coag (PPP)on 2021 INR Coag (PPP) [Relative time] 1.1 {INR} Normal 0.9-1.3 [facility] Comment on above: Order Comment: Speci men Type: BLOOD SPECIMEN Result Comment: Yris min K Antagonist (VKA) Therapeutic Range: INR 2 to 3 (Target INR of 2.5)Note: For patients treated with VKA drugs, such as warfarin, the [place] [employer] 2012 Guideline recommends [...] al. Chest 2012, 141:7S-47SNishimura RA, et al. [facility] 2017, 70: 252-289 Performed By: #### 3 4528-0 ####[facility]ORATORYCLIA [id number] [place] [address] [place] OF [facility] PT Coag (PPP) [Time] 11.9 s Normal 9.7-13.0 [facility] Comment on above: Order Comment: Speci men Type: BLOOD SPECIMEN Performed By: #### 3 4528-0 ####[facility]ATORYCLIA [id number] [place] [address] [place] Phosphate SerPl-mCncon 06-12 Phosphate [Mass/Vol] 2.2 mg/dL Low 2.7-4.8 [facility] Comment on above: Order Comment: Speci men Type: BLOOD SPECIMEN Performed By: #### 2 777-1, 15879-9, 23820-6 ####[facility]ATORYCLIA [id number] [address] OF [facility] XR ABDOMEN 1V SUPINEon 06-12 XR ABDOMEN 1V SUPINE Normal [facility] ALLIED HEALTHon 06-11-2021 ALLIED HEALTH Normal [facility] Bacteria Bld Culton 06-11-19 22 Bacteria identified Cx Nom (Bld) CULTURE, BLOOD: No growth 5 days Normal [facility] Comment on above: Performed By: #### 6 00-7 ####[facility]ATORYCLIA [id number] [address] Bacteria identified Cx Nom (Bld) CULTURE, BLOOD: No growth 5 days Normal [facility] Comment on above: Performed By: #### 6 00-7 ####[facility]ATORYCLIA [id number] [address] Bacteria Ur Culton 2 Bacteria identified Cx Nom (U) CULTURE, URINE: No growth (<1,000 CFU/ml) Normal [facility] Comment on above: Performed By: #### 6 30-4 ####[facility]ATORYCLIA [id number] [address] [place] Basic metabolic 2000 panelon 06-11-2021 Anion gap [Moles/Vol] 9 mmol/L Normal 9-18 [facility] Comment on above: Order Comment: Speci men Type: BLOOD SPECIMEN Performed By: #### 1 9123-9, 2777-1, 38356-2 ####[facility]ATORYCLIA [id number] [address] [place] Calcium [Mass/Vol] 8.5 mg/dL Normal 8.5-10.2 [facility] Comment on above: Order Comment: Speci men Type: BLOOD SPECIMEN Performed By: #### 1 9123-9, 2777-1, 29170-5 ####[facility]ATORYCLIA [id number] [address] OF [facility] Chloride [Moles/Vol] 118 mmol/L High 97-105 [facility] Comment on above: Order Comment: Speci men Type: BLOOD SPECIMEN Performed By: #### 1 9123-9, 2777-, 86261-0 ####[facility]ORYCLIA [id number] [address] [place] CO2 [Moles/Vol] 27 mmol/L Normal 22-30 [facility] Comment on above: Order Comment: Speci men Type: BLOOD SPECIMEN Performed By: #### 1 9123-9, 2777, 57338-5 ####[facility]ORYCLIA [id number] [address] [place] Creatinine [Mass/Vol] 0.75 mg/dL Normal 0.73-1.22 [facility] Comment on above: Order Comment: Speci men Type: BLOOD SPECIMEN Performed By: #### 1 9123-9, 2777, 68990-3 ####[facility]ATORYCLIA [id number] [address] [place] GFR/1.73 sq M.predicted MDRD (S/P/Bld) [Vol rate/Area] mL/min/{1.73_m2} Normal [facility] Comment on above: Order [...] GFR. Performed By: #### 1 9123-9, 2777, 75950-3 ####[facility]ORATORYCLIA [id number] [place] [address] [place] Glucose [Mass/Vol] 142 mg/dL High 74-99 [facility] Comment on above: Order Comment: Speci men Type: BLOOD SPECIMEN Result Comment: The [place] [employer] (ADA) provides guidance for cutoff [...] Standards of Medical Care in Diabetes 2016, [place] [employer]. Diabetes Care. 2016.39(Suppl 1). Performed By: #### 1 9123-9, 27711-04, 90795-3 ####[facility]ATORYCLIA [id number] [place] [address] [place] Potassium [Moles/Vol] 3.6 mmol/L Low 3.7-5.1 [facility] Comment on above: Order Comment: Speci men Type: BLOOD SPECIMEN Performed By: #### 1 9123-9, 27711-04, 08422-2 ####[facility]ORATORYCLIA [id number] [place] [address] [place] Sodium [Moles/Vol] 154 mmol/L High 136-144 [facility] Comment on above: Order Comment: Speci men Type: BLOOD SPECIMEN Performed By: #### 1 9123-9, 2777, 08956-9 ####[facility] LABORATORYCLIA [id number] [place] [address] [place] Urea nitrogen [Mass/Vol] 31 mg/dL High 9-24 [facility] Comment on above: Order Comment: Speci men Type: BLOOD SPECIMEN Performed By: #### 1 9123-9, 2777-1, 21002-3 ####[facility]ORATORYCLIA [id number] [address] C diff Tox gens Stl Ql MEGAN+p robeon 06-11-2021 C. difficile toxin genes MEGAN+probe Ql (Stl) Negative Normal Negative for C. difficile toxin by PCR [facility] Comment on above: Order Comment: Speci men Type: STOOL SPECIMEN Performed By: #### 5 4067-4 ####[facility]ORATORYCLIA [id number] [address] CBC W Auto Differential pane l (Bld)on 06-11-2021 Basophils (Bld) [#/Vol] 0.03 10*3/uL Normal <0.11 [facility] Comment on above: Order Comment: Speci men Type: BLOOD SPECIMEN Performed By: #### 5 7021-8 ####[facility]ORATORYCLIA [id number] [address] Basophils/100 WBC (Bld) 0.2 % Normal [facility] Comment on above: Order Comment: Speci men Type: BLOOD SPECIMEN Performed By: #### 5 7021-8 ####[facility]ORATORYCLIA [id number] [address] Differential cell count method Nom (Bld) Auto Normal [facility] Comment on above: Order Comment: Speci men Type: BLOOD SPECIMEN Performed By: #### 5 7021-8 ####[facility]ATORYCLIA [id number] [address] Eosinophils (Bld) [#/Vol] 0.19 10*3/uL Normal <0.46 [facility] Comment on above: Order Comment: Speci men Type: BLOOD SPECIMEN Performed By: #### 5 7021-8 ####[facility]ORATORYCLIA [id number] [address] Eosinophils/100 WBC (Bld) 1.5 % Normal [facility] Comment on above: Order Comment: Speci men Type: BLOOD SPECIMEN Performed By: #### 5 7021-8 ####[facility] LABORATORYCLIA [id number] [address] Erythrocyte distribution width (RBC) [Ratio] 16.3 % High 11.5-15.0 [facility] Comment on above: Order Comment: Speci men Type: BLOOD SPECIMEN Performed By: #### 5 7021-8 ####[facility] LABORATORYCLIA [id number] [address] Hematocrit (Bld) [Volume fraction] 32.1 % Low 39.0-51.0 [facility] Comment on above: Order Comment: Speci men Type: BLOOD SPECIMEN Performed By: #### 5 7021-8 ####[facility] LABORATORYCLIA [id number] [address] Hemoglobin (Bld) [Mass/Vol] 9.3 g/dL Low 13.0-17.0 [facility] Comment on above: Order Comment: Speci men Type: BLOOD SPECIMEN Performed By: #### 5 7021-8 ####[facility] LABORATORYCLIA [id number] [address] IMMATURE GRAN % 0.6 % Normal [facility] Comment on above: Order Comment: Speci men Type: BLOOD SPECIMEN Performed By: #### 5 7021-8 ####[facility]ATORYCLIA [id number] [address] IMMATURE GRAN ABS 0.08 k/uL Normal <0.10 [facility] Comment on above: Order Comment: Speci men Type: BLOOD SPECIMEN Performed By: #### 5 7021-8 ####[facility]ORATORYCLIA [id number] [address] OF [facility] Lymphocytes (Bld) [#/Vol] 1.65 10*3/uL Normal 1.00-4.00 [facility] Comment on above: Order Comment: Speci men Type: BLOOD SPECIMEN Performed By: #### 5 7021-8 ####[facility]ORATORYCLIA [id number] [address] Lymphocytes/100 WBC (Bld) 12.8 % Normal [facility] Comment on above: Order Comment: Speci men Type: BLOOD SPECIMEN Performed By: #### 5 7021-8 ####[facility]ORATORYCLIA [id number] [address] MCH (RBC) [Entitic mass] 27.2 pg Normal 26.0-34.0 [facility] Comment on above: Order Comment: Speci men Type: BLOOD SPECIMEN Performed By: #### 5 7021-8 ####[facility]ORATORYCLIA [id number] [address] MCHC (RBC) [Mass/Vol] 29.0 g/dL Low 30.5-36.0 [facility] Comment on above: Order Comment: Speci men Type: BLOOD SPECIMEN Performed By: #### 5 7021-8 ####[facility]ATORYCLIA [id number] [address] MCV (RBC) [Entitic vol] 93.9 fL Normal 80.0-100.0 [facility] Comment on above: Order Comment: Speci men Type: BLOOD SPECIMEN Performed By: #### 5 7021-8 ####[facility]ATORYCLIA [id number] [address] Monocytes (Bld) [#/Vol] 0.68 10*3/uL Normal <0.87 [facility] Comment on above: Order Comment: Speci men Type: BLOOD SPECIMEN Performed By: #### 5 7021-8 ####[facility]ATORYCLIA [id number] [address] Monocytes/100 WBC (Bld) 5.3 % Normal [facility] Comment on above: Order Comment: Speci men Type: BLOOD SPECIMEN Performed By: #### 5 7021-8 ####[facility]ATORYCLIA [id number] [address] Neutrophils (Bld) [#/Vol] 10.22 10*3/uL High 1.45-7.50 [facility] Comment on above: Order Comment: Speci men Type: BLOOD SPECIMEN Performed By: #### 5 7021-8 ####[facility]ORATORYCLIA [id number] [address] Neutrophils/100 WBC (Bld) 79.6 % Normal [facility] Comment on above: Order Comment: Speci men Type: BLOOD SPECIMEN Performed By: #### 5 7021-8 ####[facility]ATORYCLIA [id number] [address] Nucleated RBC (Bld) [#/Vol] 10*3/uL Normal <0.01 [facility] Comment on above: Order Comment: Speci men Type: BLOOD SPECIMEN Performed By: #### 5 7021-8 ####[facility]ORATORYCLIA [id number] [address] Nucleated RBC/100 WBC (Bld) [Ratio] 0.0 /100 WBC Normal 0.0 [facility] Comment on above: Order Comment: Speci men Type: BLOOD SPECIMEN Performed By: #### 5 7021-8 ####[facility]ATORYCLIA [id number] [address] Platelet mean volume (Bld) [Entitic vol] 11.1 fL Normal 9.0-12.7 [facility] Comment on above: Order Comment: Speci men Type: BLOOD SPECIMEN Performed By: #### 5 7021-8 ####[facility] LABORATORYCLIA [id number] [address] Platelets (Bld) [#/Vol] 188 10*3/uL Normal 150-400 [facility] Comment on above: Order Comment: Speci men Type: BLOOD SPECIMEN Performed By: #### 5 7021-8 ####[facility] LABORATORYCLIA [id number] [address] RBC (Bld) [#/Vol] 3.42 10*6/uL Low 4.20-6.00 [facility] Comment on above: Order Comment: Speci men Type: BLOOD SPECIMEN Performed By: #### 5 7021-8 ####[facility]ATORYCLIA [id number] [address] WBC (Bld) [#/Vol] 12.85 10*3/uL High 3.70-11.00 [facility] Comment on above: Order Comment: Speci men Type: BLOOD SPECIMEN Performed By: #### 5 7021-8 ####[facility] LABORATORYCLIA [id number] [address] CBC panel Auto (Bld)on 06-11 Erythrocyte distribution width (RBC) [Ratio] 16.2 % High 11.5-15.0 [facility] Comment on above: Order Comment: Speci men Type: BLOOD SPECIMEN Performed By: #### 5 8410-2 ####[facility]ATORYCLIA [id number] [address] Hematocrit (Bld) [Volume fraction] 34.5 % Low 39.0-51.0 [facility] Comment on above: Order Comment: Speci men Type: BLOOD SPECIMEN Performed By: #### 5 8410-2 ####[facility]ATORYCLIA [id number] [address] Hemoglobin (Bld) [Mass/Vol] 10.3 g/dL Low 13.0-17.0 [facility] Comment on above: Order Comment: Speci men Type: BLOOD SPECIMEN Performed By: #### 5 8410-2 ####[facility]ORATORYCLIA [id number] [address] MCH (RBC) [Entitic mass] 28.1 pg Normal 26.0-34.0 [facility] Comment on above: Order Comment: Speci men Type: BLOOD SPECIMEN Performed By: #### 5 8410-2 ####[facility]ATORYCLIA [id number] [address] MCHC (RBC) [Mass/Vol] 29.9 g/dL Low 30.5-36.0 [facility] Comment on above: Order Comment: Speci men Type: BLOOD SPECIMEN Performed By: #### 5 8410-2 ####[facility]ATORYCLIA [id number] [address] MCV (RBC) [Entitic vol] 94.3 fL Normal 80.0-100.0 [facility] Comment on above: Order Comment: Speci men Type: BLOOD SPECIMEN Performed By: #### 5 8410-2 ####[facility]ATORYCLIA [id number] [address] Nucleated RBC (Bld) [#/Vol] 10*3/uL Normal <0.01 [facility] Comment on above: Order Comment: Speci men Type: BLOOD SPECIMEN Performed By: #### 5 8410-2 ####[facility]ATORYCLIA [id number] [address] Platelet mean volume (Bld) [Entitic vol] 10.9 fL Normal 9.0-12.7 [facility] Comment on above: Order Comment: Speci men Type: BLOOD SPECIMEN Performed By: #### 5 8410-2 ####[facility]ATORYCLIA [id number] [address] Platelets (Bld) [#/Vol] 210 10*3/uL Normal 150-400 [facility] Comment on above: Order Comment: Speci men Type: BLOOD SPECIMEN Performed By: #### 5 8410-2 ####[facility]ATORYCLIA [id number] [address] RBC (Bld) [#/Vol] 3.66 10*6/uL Low 4.20-6.00 [facility] Comment on above: Order Comment: Speci men Type: BLOOD SPECIMEN Performed By: #### 5 8410-2 ####[facility]ORATORYCLIA [id number] [address] STATES OF [facility] WBC (Bld) [#/Vol] 13.03 10*3/uL High 3.70-11.00 [facility] Comment on above: Order Comment: Speci men Type: BLOOD SPECIMEN Performed By: #### 5 8410-2 ####[facility]ORATORYCLIA [id number] [address] CONSULT PROGon 06-11-2021 CONSULT PROG Normal [facility] CONSULT PROG Normal [facility] CONSULT PROG Normal [facility] CT ABD/PEL W IVCONon 022 CT ABD/PEL W IVCON Invalid Interpretation Code [facility] Magnesium SerPl-mCncon 06-11 Magnesium [Mass/Vol] 2.7 mg/dL High 1.7-2.3 [facility] Comment on above: Order Comment: Speci men Type: BLOOD SPECIMEN Performed By: #### 1 9123-9, 2777-1, 31521-5 ####[facility]ATORYCLIA [id number] [address] Phosphate SerPl-mCncon 06-11 Phosphate [Mass/Vol] 2.5 mg/dL Low 2.7-4.8 [facility] Comment on above: Order Comment: Speci men Type: BLOOD SPECIMEN Performed By: #### 1 9123-9, 2777-1, 97728-6 ####[facility]ORATORYCLIA [id number] [address] OF [facility] Basic metabolic 2000 panelon 06-10-2021 Anion gap [Moles/Vol] 7 mmol/L Low 9-18 [facility] Comment on above: Order Comment: Speci men Type: BLOOD SPECIMEN Performed By: #### 2 777-1, 80027-8, 15932-1, HFP ####[facility]ORATORYCLIA [id number] [place] [address] [place] Calcium [Mass/Vol] 8.5 mg/dL Normal 8.5-10.2 [facility] Comment on above: Order Comment: Speci men Type: BLOOD SPECIMEN Performed By: #### 2 777-1, 46514-3, , [facility] ####[facility]ORATORYCLIA [id number] [address] [place] Chloride [Moles/Vol] 118 mmol/L High 97-105 [facility] Comment on above: Order Comment: Speci men Type: BLOOD SPECIMEN Performed By: #### 2 777-1, 37224-6, , [facility] ####[facility]ORATORYCLIA [id number] [address] [place] CO2 [Moles/Vol] 26 mmol/L Normal 22-30 [facility] Comment on above: Order Comment: Speci men Type: BLOOD SPECIMEN Performed By: #### 2 777-1, 67874-7, , [facility] ####[facility]ORATORYCLIA [id number] [address] [place] Creatinine [Mass/Vol] 0.70 mg/dL Low 0.73-1.22 [facility] Comment on above: Order Comment: Speci men Type: BLOOD SPECIMEN Performed By: #### 2 777-1, 86879-4, , [facility] ####[facility]ORATORYCLIA [id number] [place] [address] [place] GFR/1.73 sq M.predicted MDRD (S/P/Bld) [Vol rate/Area] mL/min/{1.73_m2} Normal [facility] Comment on above: Order [...] actual GFR. Performed By: #### 2 777-1, 61692-4, , [facility] ####[facility]ORATORYCLIA [id number] [place] [address] [place] Glucose [Mass/Vol] 135 mg/dL High 74-99 [facility] Comment on above: Order Comment: Speci men Type: BLOOD SPECIMEN Result Comment: The [place] [employer] (ADA) provides guidance for cutoff [...] Standards of Medical Care in Diabetes 2016, [place] [employer]. Diabetes Care. 2016.39(Suppl 1). Performed By: #### 2 777-1, 25963-8, , [facility] ####[facility] LABORATORYCLIA [id number] [place] [address] [place] Potassium [Moles/Vol] 3.9 mmol/L Normal 3.7-5.1 [facility] Comment on above: Order Comment: Speci men Type: BLOOD SPECIMEN Performed By: #### 2 777-1, 09280-9, , [facility] ####[facility] LABORATORYCLIA [id number] [place] [address] [place] Sodium [Moles/Vol] 151 mmol/L High 136-144 [facility] Comment on above: Order Comment: Speci men Type: BLOOD SPECIMEN Performed By: #### 2 777-1, 30296-4, , [facility] ####[facility] LABORATORYCLIA [id number] [address] Urea nitrogen [Mass/Vol] 27 mg/dL High 9-24 [facility] Comment on above: Order Comment: Speci men Type: BLOOD SPECIMEN Performed By: #### 2 777-1, 13921-8, , [facility] ####[facility] LABORATORYCLIA [id number] [address] CASE MANAGEMon 06-10-2021 CASE MANAGEM Normal [facility] CBC panel Auto (Bld)on 06-10 Erythrocyte distribution width (RBC) [Ratio] 16.2 % High 11.5-15.0 [facility] Comment on above: Order Comment: Speci men Type: BLOOD SPECIMEN Performed By: #### 5 8410-2 ####[facility]ORATORYCLIA [id number] [address] Hematocrit (Bld) [Volume fraction] 34.8 % Low 39.0-51.0 [facility] Comment on above: Order Comment: Speci men Type: BLOOD SPECIMEN Performed By: #### 5 8410-2 ####[facility]ORATORYCLIA [id number] [address] Hemoglobin (Bld) [Mass/Vol] 10.2 g/dL Low 13.0-17.0 [facility] Comment on above: Order Comment: Speci men Type: BLOOD SPECIMEN Performed By: #### 5 8410-2 ####[facility]ORATORYCLIA [id number] [address] MCH (RBC) [Entitic mass] 27.1 pg Normal 26.0-34.0 [facility] Comment on above: Order Comment: Speci men Type: BLOOD SPECIMEN Performed By: #### 5 8410-2 ####[facility]ORATORYCLIA [id number] [address] MCHC (RBC) [Mass/Vol] 29.3 g/dL Low 30.5-36.0 [facility] Comment on above: Order Comment: Speci men Type: BLOOD SPECIMEN Performed By: #### 5 8410-2 ####[facility]ATORYCLIA [id number] [address] MCV (RBC) [Entitic vol] 92.6 fL Normal 80.0-100.0 [facility] Comment on above: Order Comment: Speci men Type: BLOOD SPECIMEN Performed By: #### 5 8410-2 ####[facility]ATORYCLIA [id number] [address] Nucleated RBC (Bld) [#/Vol] 10*3/uL Normal <0.01 [facility] Comment on above: Order Comment: Speci men Type: BLOOD SPECIMEN Performed By: #### 5 8410-2 ####[facility]ATORYCLIA [id number] [address] Platelet mean volume (Bld) [Entitic vol] 10.4 fL Normal 9.0-12.7 [facility] Comment on above: Order Comment: Speci men Type: BLOOD SPECIMEN Performed By: #### 5 8410-2 ####[facility]ATORYCLIA [id number] [address] Platelets (Bld) [#/Vol] 206 10*3/uL Normal 150-400 [facility] Comment on above: Order Comment: Speci men Type: BLOOD SPECIMEN Performed By: #### 5 8410-2 ####[facility]ATORYCLIA [id number] [address] RBC (Bld) [#/Vol] 3.76 10*6/uL Low 4.20-6.00 [facility] Comment on above: Order Comment: Speci men Type: BLOOD SPECIMEN Performed By: #### 5 8410-2 ####[facility]ATORYCLIA [id number] [address] WBC (Bld) [#/Vol] 11.36 10*3/uL High 3.70-11.00 [facility] Comment on above: Order Comment: Speci men Type: BLOOD SPECIMEN Performed By: #### 5 8410-2 ####[facility]ATORYCLIA [id number] [address] HEPATIC FUNCTION PNLon 06-10 Albumin [Mass/Vol] 3.1 g/dL Low 3.9-4.9 [facility] Comment on above: Order Comment: Speci men Type: BLOOD SPECIMEN Performed By: #### 2 777-1, 85610-5, , [facility] ####[facility]ORATORYCLIA [id number] [address] ALP [Catalytic activity/Vol] 73 U/L Normal 38-113 [facility] Comment on above: Order Comment: Speci men Type: BLOOD SPECIMEN Performed By: #### 2 777-1, 91327-7, , [facility] ####[facility]ORATORYCLIA [id number] [address] [place] ALT With P-5'-P [Catalytic activity/Vol] 64 U/L High 10-54 [facility] Comment on above: Order Comment: Speci men Type: BLOOD SPECIMEN Performed By: #### 2 777-1, 12128-4, , [facility] ####[facility]ATORYCLIA [id number] [address] [place] AST With P-5'-P [Catalytic activity/Vol] 44 U/L High 14-40 [facility] Comment on above: Order Comment: Speci men Type: BLOOD SPECIMEN Performed By: #### 2 777-1, 09649-9, , [facility] ####[facility]ATORYCLIA [id number] [address] [place] Bilirubin [Mass/Vol] 0.5 mg/dL Normal 0.2-1.3 [facility] Comment on above: Order Comment: Speci men Type: BLOOD SPECIMEN Performed By: #### 2 777-1, 23312-6, , [facility] ####[facility]ORATORYCLIA [id number] [address] Bilirubin.conjugated [Mass/Vol] mg/dL Normal <0.2 [facility] Comment on above: Order Comment: Speci men Type: BLOOD SPECIMEN Performed By: #### 2 777-1, 56577-2, , [facility] ####[facility]ORATORYCLIA [id number] [address] Protein [Mass/Vol] 5.7 g/dL Low 6.3-8.0 [facility] Comment on above: Order Comment: Speci men Type: BLOOD SPECIMEN Performed By: #### 2 777-1, 80272-2, , [facility] ####[facility] LABORATORYCLIA [id number] [address] LEVETIRACETAMon 06-10-2021 levETIRAcetam [Mass/Vol] 57.7 ug/mL High 12.0-46.0 [facility] Comment on above: Order [...] developed and its performance characteristics determined by [facility] ( [facility]). It has not been cleared or approved by the FDA. [facility] is regulated under CLIA as qualified to perform high complexity testing. This test is used for clinical purposes. It should not be regarded as investigational or for research. Performed By: #### L EVET ####[facility] LABCLIA [id number] [id number], [place] [address] [place] Magnesium SerPl-mCncon 06-10 Magnesium [Mass/Vol] 2.7 mg/dL High 1.7-2.3 [facility] Comment on above: Order Comment: Speci men Type: BLOOD SPECIMEN Performed By: #### 2 777-1, 74650-4, , [facility] ####[facility] LABORATORYCLIA [id number] [place] [address] [place] Phosphate SerPl-mCncon 06-10 Phosphate [Mass/Vol] 1.8 mg/dL Low 2.7-4.8 [facility] Comment on above: Order Comment: Speci men Type: BLOOD SPECIMEN Performed By: #### 2 777-1, 41627-9, , [facility] ####[facility]ORATORYCLIA [id number] [place] [address] [place] ALLIED HEALTHon 06-09-2021 ALLIED HEALTH Normal [facility] ALLIED HEALTH Normal [facility] ALLIED HEALTH Normal [facility] ALLIED HEALTH Normal [facility] Basic metabolic 2000 panelon 06-09-2021 Anion gap [Moles/Vol] 8 mmol/L Low 9-18 [facility] Comment on above: Order Comment: Speci men Type: BLOOD SPECIMEN Performed By: #### 2 4321-2, 2776-05, ####[facility]ORATORYCLIA [id number] [place] [address] [place] Calcium [Mass/Vol] 8.3 mg/dL Low 8.5-10.2 [facility] Comment on above: Order Comment: Speci men Type: BLOOD SPECIMEN Performed By: #### 2 4321-2, 2776-, ####[facility]ORATORYCLIA [id number] [place] [address] [place] Chloride [Moles/Vol] 116 mmol/L High 97-105 [facility] Comment on above: Order Comment: Speci men Type: BLOOD SPECIMEN Performed By: #### 2 4321-2, 2776-05, ####[facility] LABORATORYCLIA [id number] [place], [place] [id number] [place] [address] [place] [facility] CO2 [Moles/Vol] 27 mmol/L Normal 22-30 [facility] Comment on above: Order Comment: Speci men Type: BLOOD SPECIMEN Performed By: #### 2 4321-2, 2776-05, ####[facility]ORATORYCLIA [id number] [address] [place] Creatinine [Mass/Vol] 0.70 mg/dL Low 0.73-1.22 [facility] Comment on above: Order Comment: Speci men Type: BLOOD SPECIMEN Performed By: #### 2 4321-2, 2776-05, ####[facility]ORATORYCLIA [id number] [address] [place] GFR/1.73 sq M.predicted MDRD (S/P/Bld) [Vol rate/Area] mL/min/{1.73_m2} Normal [facility] Comment on above: Order [...] GFR. Performed By: #### 2 4321-2, 2776-05, ####[facility]ORATORYCLIA [id number] [address] STATES OF [facility] Glucose [Mass/Vol] 123 mg/dL High 74-99 [facility] Comment on above: Order Comment: Speci men Type: BLOOD SPECIMEN Result Comment: The [place] [employer] (ADA) provides guidance for cutoff [...] Standards of Medical Care in Diabetes 2016, [place] [employer]. Diabetes Care. 2016.39(Suppl 1). Performed By: #### 2 4321-2, 2776-05, ####[facility] LABORATORYCLIA [id number] [address] STATES OF [facility] Potassium [Moles/Vol] 3.5 mmol/L Low 3.7-5.1 [facility] Comment on above: Order Comment: Speci men Type: BLOOD SPECIMEN Performed By: #### 2 4321-2, 2776-05, ####[facility] LABORATORYCLIA [id number] [address] STATES OF [facility] Sodium [Moles/Vol] 151 mmol/L High 136-144 [facility] Comment on above: Order Comment: Speci men Type: BLOOD SPECIMEN Performed By: #### 2 4321-2, 2776-05, ####[facility]ATORYCLIA [id number] [address] STATES [facility] Urea nitrogen [Mass/Vol] 39 mg/dL High 9-24 [facility] Comment on above: Order Comment: Speci men Type: BLOOD SPECIMEN Performed By: #### 2 4321-2, 2776-05, ####[facility]ATORYCLIA [id number] CBC panel Auto (Bld)on 06-09 Erythrocyte distribution width (RBC) [Ratio] 16.2 % High 11.5-15.0 [facility] Comment on above: Order Comment: Speci men Type: BLOOD SPECIMEN Performed By: #### 5 8410-2 ####[facility]ORYCL[facility] [id number] [address] Hematocrit (Bld) [Volume fraction] 33.7 % Low 39.0-51.0 [facility] Comment on above: Order Comment: Speci men Type: BLOOD SPECIMEN Performed By: #### 5 8410-2 ####[facility]ATORYCL[facility] [id number] [address] Hemoglobin (Bld) [Mass/Vol] 10.2 g/dL Low 13.0-17.0 [facility] Comment on above: Order Comment: Speci men Type: BLOOD SPECIMEN Performed By: #### 5 8410-2 ####[facility]ATORYCLIA [id number] MCH (RBC) [Entitic mass] 27.4 pg Normal 26.0-34.0 [facility] Comment on above: Order Comment: Speci men Type: BLOOD SPECIMEN Performed By: #### 5 8410-2 ####[facility]ATORYCLIA [id number] [address] MCHC (RBC) [Mass/Vol] 30.3 g/dL Low 30.5-36.0 [facility] Comment on above: Order Comment: Speci men Type: BLOOD SPECIMEN Performed By: #### 5 8410-2 ####[facility]ATORYCLIA [id number] [address] MCV (RBC) [Entitic vol] 90.6 fL Normal 80.0-100.0 [facility] Comment on above: Order Comment: Speci men Type: BLOOD SPECIMEN Performed By: #### 5 8410-2 ####[facility]ATORYCLIA [id number] [address] Nucleated RBC (Bld) [#/Vol] 10*3/uL Normal <0.01 [facility] Comment on above: Order Comment: Speci men Type: BLOOD SPECIMEN Performed By: #### 5 8410-2 ####[facility]ATORYCLIA [id number] [address] Platelet mean volume (Bld) [Entitic vol] 10.3 fL Normal 9.0-12.7 [facility] Comment on above: Order Comment: Speci men Type: BLOOD SPECIMEN Performed By: #### 5 8410-2 ####[facility]ATORYCLIA [id number] [address] Platelets (Bld) [#/Vol] 219 10*3/uL Normal 150-400 [facility] Comment on above: Order Comment: Speci men Type: BLOOD SPECIMEN Performed By: #### 5 8410-2 ####[facility]ATORYCLIA [id number] [address] RBC (Bld) [#/Vol] 3.72 10*6/uL Low 4.20-6.00 [facility] Comment on above: Order Comment: Speci men Type: BLOOD SPECIMEN Performed By: #### 5 8410-2 ####[facility]ATORYCLIA [id number] [address] WBC (Bld) [#/Vol] 13.02 10*3/uL High 3.70-11.00 [facility] Comment on above: Order Comment: Speci men Type: BLOOD SPECIMEN Performed By: #### 5 8410-2 ####[facility]ATORYCLIA [id number] [address] CONSULT PROGon 06-09-2021 CONSULT PROG Normal [facility] CONSULT PROG Normal [facility] CT BRAIN WO IVCONon 06-09-[address] BRAIN WO IVCON Normal [facility] Magnesium SerPl-mCncon 06-09 Magnesium [Mass/Vol] 2.8 mg/dL High 1.7-2.3 [facility] Comment on above: Order Comment: Speci men Type: BLOOD SPECIMEN Performed By: #### 2 4321-2, 2837-1, 95376-1 ####[facility]ATORYCLIA [id number] [address] NURSING PROGon 06-09-2021 NURSING PROG Normal [facility] NUTRITIONon 06-09-2021 NUTRITION Normal [facility] PT EDon 06-09-2021 PT ED Normal [facility] Phosphate SerPl-mCncon 06-09 Phosphate [Mass/Vol] 2.2 mg/dL Low 2.7-4.8 [facility] Comment on above: Order Comment: Speci men Type: BLOOD SPECIMEN Performed By: #### 2 4321-2, 2777-1, 69847-9 ####[facility]ATORYCLIA [id number] [address] Vancomycin random [Mass/Vol] on 06-09-2021 Vancomycin [Mass/Vol] 18.9 ug/mL Normal 10.0-20.0 [facility] Comment on above: Order Comment: Speci men Type: BLOOD SPECIMEN Result Comment: Refe rence ranges and high/low indicator flags are provided as general guidelines only. The treating physician must determine appropriate target levels/dosing based on the specific clinical situation. Performed By: #### 4 091-5 ####[facility]ATORYCLIA [id number] [address] XR ABD 2V SUPINE W UPR/DECUB /CTLon 06-09-2021 XR ABD 2V SUPINE W UPR/DECUB/CTL Normal [facility] XR CHEST 1V FRONTALon 2021 XR CHEST 1V FRONTAL Normal [facility] XR NECK SOFT TISSUE 2V AP/LA Ton 06-09-2021 XR NECK SOFT TISSUE 2V AP/LAT Normal [facility] XR SKULL 2V AP/LATon 022 XR SKULL 2V AP/LAT Normal [facility] ALLIED HEALTHon 06-08-2021 ALLIED HEALTH Normal [facility] ANES POSTPROC EVALon 022 ANES POSTPROC EVAL Normal [facility] ANES PRE-OPon 06-08-2021 ANES PRE-OP Normal [facility] BRIEF OP NOTon 06-08-2021 BRIEF OP NOT Normal [facility] Bacteria Spec Anaerobe Culto n 06-08-2021 Bacteria identified Anaer cx Nom (Unsp spec) ORGANISM ID: 1 Rare Staphylococcus saccharolyticus Identification performed by [facility] CC-Main See scanned document for susceptibility report Normal [facility] Comment on above: Performed By: #### 6 462-6, 635-3 ####[facility]ATORYCLIA [id number] [place] [address] [place] Bacteria Wnd Culton 06-08-19 22 Bacteria identified Cx Nom (Wound) CULTURE, INTRAOPERATIVE HARDWARE: No growth 5 days GRAM STAIN: Not performed on specimen type Normal [facility] Comment on above: Performed By: #### 6 462-6, 635-3 ####[facility]ATORYCLIA [id number] [place] [address] [place] Basic metabolic 2000 panelon 06-08-2021 Anion gap [Moles/Vol] 9 mmol/L Normal 9-18 [facility] Comment on above: Order Comment: Speci men Type: BLOOD SPECIMEN Performed By: #### 2 4321-2, 2776-05, ####[facility]ATORYCLIA [id number] [place] [address] [place] Calcium [Mass/Vol] 8.7 mg/dL Normal 8.5-10.2 [facility] Comment on above: Order Comment: Speci men Type: BLOOD SPECIMEN Performed By: #### 2 4321-2, 2776-, ####[facility]ATORYCLIA [id number] [place] [address] [place] Chloride [Moles/Vol] 113 mmol/L High 97-105 [facility] Comment on above: Order Comment: Speci men Type: BLOOD SPECIMEN Performed By: #### 2 4321-2, 2776-, ####[facility]ORATORYCLIA [id number] [place], [place] [address] [place] [address] STATES OF [facility] CO2 [Moles/Vol] 26 mmol/L Normal 22-30 [facility] Comment on above: Order Comment: Speci men Type: BLOOD SPECIMEN Performed By: #### 2 4321-2, 2776-05, ####[facility]ATORYCLIA [id number] [address] [place] Creatinine [Mass/Vol] 0.68 mg/dL Low 0.73-1.22 [facility] Comment on above: Order Comment: Speci men Type: BLOOD SPECIMEN Performed By: #### 2 4321-2, 2776-05, ####[facility]ATORYCLIA [id number] [address] GFR/1.73 sq M.predicted MDRD (S/P/Bld) [Vol rate/Area] mL/min/{1.73_m2} Normal [facility] Comment on above: Order [...] GFR. Performed By: #### 2 4321-2, 2776-05, ####[facility]ATORYCLIA [id number] [address] [place] Glucose [Mass/Vol] 146 mg/dL High 74-99 [facility] Comment on above: Order Comment: Speci men Type: BLOOD SPECIMEN Result Comment: The [place] [employer] (ADA) provides guidance for cutoff [...] Standards of Medical Care in Diabetes 2016, [place] [employer]. Diabetes Care. 2016.39(Suppl 1). Performed By: #### 2 4321-2, 2776-05, ####[facility]ATORYCLIA [id number] [address] STATES OF [facility] Potassium [Moles/Vol] 3.6 mmol/L Low 3.7-5.1 [facility] Comment on above: Order Comment: Speci men Type: BLOOD SPECIMEN Performed By: #### 2 4321-2, 2776-05, ####[facility]ATORYCLIA [id number] [address] Sodium [Moles/Vol] 148 mmol/L High 136-144 [facility] Comment on above: Order Comment: Speci men Type: BLOOD SPECIMEN Performed By: #### 2 4321-2, 2776-05, ####[facility]ATORYCLIA [id number] [address] Urea nitrogen [Mass/Vol] 36 mg/dL High 9-24 [facility] Comment on above: Order Comment: Speci men Type: BLOOD SPECIMEN Performed By: #### 2 4321-2, 2776-05, ####[facility]ATORYCLIA [id number] [address] CASE MANAGEMon 06-08-2021 CASE MANAGEM Normal [facility] CBC panel Auto (Bld)on 06-08 Erythrocyte distribution width (RBC) [Ratio] 16.0 % High 11.5-15.0 [facility] Comment on above: Order Comment: Speci men Type: BLOOD SPECIMEN Performed By: #### 5 8410-2 ####[facility]ATORYCLIA [id number] [address] Hematocrit (Bld) [Volume fraction] 38.4 % Low 39.0-51.0 [facility] Comment on above: Order Comment: Speci men Type: BLOOD SPECIMEN Performed By: #### 5 8410-2 ####[facility]ATORYCLIA [id number] [address] Hemoglobin (Bld) [Mass/Vol] 12.1 g/dL Low 13.0-17.0 [facility] Comment on above: Order Comment: Speci men Type: BLOOD SPECIMEN Performed By: #### 5 8410-2 ####[facility]ATORYCLIA [id number] [address] MCH (RBC) [Entitic mass] 28.3 pg Normal 26.0-34.0 [facility] Comment on above: Order Comment: Speci men Type: BLOOD SPECIMEN Performed By: #### 5 8410-2 ####[facility]ATORYCLIA [id number] [address] MCHC (RBC) [Mass/Vol] 31.5 g/dL Normal 30.5-36.0 [facility] Comment on above: Order Comment: Speci men Type: BLOOD SPECIMEN Performed By: #### 5 8410-2 ####[facility]ATORYCLIA [id number] [address] MCV (RBC) [Entitic vol] 89.9 fL Normal 80.0-100.0 [facility] Comment on above: Order Comment: Speci men Type: BLOOD SPECIMEN Performed By: #### 5 8410-2 ####[facility]ATORYCLIA [id number] [address] Nucleated RBC (Bld) [#/Vol] 10*3/uL Normal <0.01 [facility] Comment on above: Order Comment: Speci men Type: BLOOD SPECIMEN Performed By: #### 5 8410-2 ####[facility]ATORYCLIA [id number] [address] Platelet mean volume (Bld) [Entitic vol] 10.3 fL Normal 9.0-12.7 [facility] Comment on above: Order Comment: Speci men Type: BLOOD SPECIMEN Performed By: #### 5 8410-2 ####[facility]ATORYCLIA [id number] [address] Platelets (Bld) [#/Vol] 236 10*3/uL Normal 150-400 [facility] Comment on above: Order Comment: Speci men Type: BLOOD SPECIMEN Performed By: #### 5 8410-2 ####[facility]ATORYCLIA [id number] [address] RBC (Bld) [#/Vol] 4.27 10*6/uL Normal 4.20-6.00 [facility] Comment on above: Order Comment: Speci men Type: BLOOD SPECIMEN Performed By: #### 5 8410-2 ####[facility]ATORYCLIA [id number] [address] WBC (Bld) [#/Vol] 11.06 10*3/uL High 3.70-11.00 [facility] Comment on above: Order Comment: Speci men Type: BLOOD SPECIMEN Performed By: #### 5 8410-2 ####[facility]ATORYCLIA [id number] [address] CONSULT PROGon 06-08-2021 CONSULT PROG Normal [facility] CT BRAIN WO IVCONon 06-08-19 CT BRAIN WO IVCON Normal [facility] Magnesium SerPl-mCncon 06-08 Magnesium [Mass/Vol] 2.8 mg/dL High 1.7-2.3 [facility] Comment on above: Order Comment: Speci men Type: BLOOD SPECIMEN Performed By: #### 2 4321-2, 2777-1, 52618-6 ####[facility]ATORYCLIA [id number] [address] Microorganism Spec Culton Microorganism identified Cx Nom (Unsp spec) CULTURE, FUNGAL: No Fungus isolated after 28 days FUNGAL SMEAR: No fungus seen Normal [facility] Comment on above: Performed By: #### 1 1475-1 ####[facility]ATORYCLIA [id number] [address] NURSING PROGon 06-08-2021 NURSING PROG Normal [facility] OPERATIVE NOon 06-08-2021 OPERATIVE NO Normal [facility] OPERATIVE NO Normal [facility] PT panel Coag (PPP)on 2021 INR Coag (PPP) [Relative time] 1.1 {INR} Normal 0.9-1.3 [facility] Comment on above: Order Comment: Speci men Type: BLOOD SPECIMEN Result Comment: Yris min K Antagonist (VKA) Therapeutic Range: INR 2 to 3 (Target INR of 2.5)Note: For patients treated with VKA drugs, such as warfarin, the [employer] 2012 Guideline recommends [...] 70: 252-289 Performed By: #### 3 4528-0, 82653-8 ####[facility]ATORYCLIA [id number] [address] OF [facility] PT Coag (PPP) [Time] 11.9 s Normal 9.7-13.0 [facility] Comment on above: Order Comment: Speci men Type: BLOOD SPECIMEN Performed By: #### 3 4528-0, 15184-0 ####[facility]ATORYCLIA [id number] [place] [address] [place] [facility] Phosphate SerPl-mCncon 06-08 Phosphate [Mass/Vol] 2.3 mg/dL Low 2.7-4.8 [facility] Comment on above: Order Comment: Speci men Type: BLOOD SPECIMEN Performed By: #### 2 4321-2, 2777-1, 14749-4 ####[facility]ATORYCLIA [id number] [place], [place] [address] [place] [address] OF [facility] aPTT PPPon 06-08-2021 aPTT Coag (PPP) [Time] 24.2 s Normal 23.0-32.4 [facility] Comment on above: Order Comment: Speci men Type: BLOOD SPECIMEN Performed By: #### 3 4528-0, 66183-5 ####[facility]ATORYCLIA [id number] [address] STATES OF [facility] ALLIED HEALTHon 06-07-2021 ALLIED HEALTH Normal [facility] ALLIED HEALTH Normal [facility] ALLIED HEALTH Normal [facility] Bacteria CSF Culton 06-07-19 22 Bacteria identified Cx Nom (CSF) CULTURE, CSF: No growth 14 days GRAM STAIN: No organisms seen Rare Mononuclear cells Rare Polymorphonuclear leukocytes Gram stain performed on cytospun specimen. Normal [facility] Comment on above: Performed By: #### 6 06-4 ####[facility]ORATORYCLIA [id number] [address] [place] Basic metabolic 2000 panelon 06-07-2021 Anion gap [Moles/Vol] 9 mmol/L Normal 9-18 [facility] Comment on above: Order Comment: Speci men Type: BLOOD SPECIMEN Performed By: #### 1 9123-9, 2777-1, 59272-2 ####[facility]ATORYCLIA [id number] [address] STATES OF [facility] Calcium [Mass/Vol] 8.8 mg/dL Normal 8.5-10.2 [facility] Comment on above: Order Comment: Speci men Type: BLOOD SPECIMEN Performed By: #### 1 9123-9, 2777-, 37920-5 ####[facility]ATORYCLIA [id number] [address] STATES OF [facility] Chloride [Moles/Vol] 111 mmol/L High 97-105 [facility] Comment on above: Order Comment: Speci men Type: BLOOD SPECIMEN Performed By: #### 1 9123-9, 2777, 65522-2 ####[facility]ATORYCLIA [id number] [address] STATES OF [facility] CO2 [Moles/Vol] 27 mmol/L Normal 22-30 [facility] Comment on above: Order Comment: Speci men Type: BLOOD SPECIMEN Performed By: #### 1 9123-9, 2777, 85501-7 ####[facility]ATORYCLIA [id number] [address] [place] Creatinine [Mass/Vol] 0.66 mg/dL Low 0.73-1.22 [facility] Comment on above: Order Comment: Speci men Type: BLOOD SPECIMEN Performed By: #### 1 9123-9, 2777, 48163-5 ####[facility]ATORYCLIA [id number] [address] [place] GFR/1.73 sq M.predicted MDRD (S/P/Bld) [Vol rate/Area] mL/min/{1.73_m2} Normal [facility] Comment on above: Order [...] GFR. Performed By: #### 1 9123-9, 2776-05, 10846-8 ####[facility]ATORYCLIA [id number] [place] [address] [place] Glucose [Mass/Vol] 123 mg/dL High 74-99 [facility] Comment on above: Order Comment: Speci men Type: BLOOD SPECIMEN Result Comment: The [place] [employer] (ADA) provides guidance for cutoff [...] Standards of Medical Care in Diabetes 2016, [place] [employer]. Diabetes Care. 2016.39(Suppl 1). Performed By: #### 1 9123-9, 2776-05, ####[facility]ATORYCLIA [id number] [place] [address] [place] Potassium [Moles/Vol] 3.6 mmol/L Low 3.7-5.1 [facility] Comment on above: Order Comment: Speci men Type: BLOOD SPECIMEN Performed By: #### 1 9123-9, 2776-05, 97796-9 ####[facility]ATORYCLIA [id number] [place] [address] [place] Sodium [Moles/Vol] 147 mmol/L High 136-144 [facility] Comment on above: Order Comment: Speci men Type: BLOOD SPECIMEN Performed By: #### 1 9123-9, 27711-04, 55721-1 ####[facility]ATORYCLIA [id number] [place] [address] [place] Urea nitrogen [Mass/Vol] 30 mg/dL High 9-24 [facility] Comment on above: Order Comment: Speci men Type: BLOOD SPECIMEN Performed By: #### 1 9123-9, 2777-1, 96772-0 ####[facility]ATORYCLIA [id number] [address] CBC W Auto Differential pane l (Bld)on 06-07-2021 Basophils (Bld) [#/Vol] 10*3/uL Normal <0.11 [facility] Comment on above: Order Comment: Speci men Type: BLOOD SPECIMEN Performed By: #### 5 7021-8 ####[facility]ATORYCLIA [id number] [address] Basophils/100 WBC (Bld) 0.2 % Normal [facility] Comment on above: Order Comment: Speci men Type: BLOOD SPECIMEN Performed By: #### 5 7021-8 ####[facility]ATORYCLIA [id number] [address] Differential cell count method Nom (Bld) Auto Normal [facility] Comment on above: Order Comment: Speci men Type: BLOOD SPECIMEN Performed By: #### 5 7021-8 ####[facility]ATORYCLIA [id number] [address] STATES OF [facility] Eosinophils (Bld) [#/Vol] 0.06 10*3/uL Normal <0.46 [facility] Comment on above: Order Comment: Speci men Type: BLOOD SPECIMEN Performed By: #### 5 7021-8 ####[facility]ATORYCLIA [id number] [address] Eosinophils/100 WBC (Bld) 0.6 % Normal [facility] Comment on above: Order Comment: Speci men Type: BLOOD SPECIMEN Performed By: #### 5 7021-8 ####[facility]ORATORYCLIA [id number] [address] Erythrocyte distribution width (RBC) [Ratio] 15.8 % High 11.5-15.0 [facility] Comment on above: Order Comment: Speci men Type: BLOOD SPECIMEN Performed By: #### 5 7021-8 ####[facility] LABORATORYCLIA [id number] [address] Hematocrit (Bld) [Volume fraction] 40.4 % Normal 39.0-51.0 [facility] Comment on above: Order Comment: Speci men Type: BLOOD SPECIMEN Performed By: #### 5 7021-8 ####[facility]ORATORYCLIA [id number] [address] Hemoglobin (Bld) [Mass/Vol] 12.4 g/dL Low 13.0-17.0 [facility] Comment on above: Order Comment: Speci men Type: BLOOD SPECIMEN Performed By: #### 5 7021-8 ####[facility] LABORATORYCLIA [id number] [address] IMMATURE GRAN % 0.7 % Normal [facility] Comment on above: Order Comment: Speci men Type: BLOOD SPECIMEN Performed By: #### 5 7021-8 ####[facility]ORATORYCLIA [id number] [address] IMMATURE GRAN ABS 0.07 k/uL Normal <0.10 [facility] Comment on above: Order Comment: Speci men Type: BLOOD SPECIMEN Performed By: #### 5 7021-8 ####[facility] LABORATORYCLIA [id number] [address] Lymphocytes (Bld) [#/Vol] 1.43 10*3/uL Normal 1.00-4.00 [facility] Comment on above: Order Comment: Speci men Type: BLOOD SPECIMEN Performed By: #### 5 7021-8 ####[facility]ORATORYCLIA [id number] [address] Lymphocytes/100 WBC (Bld) 14.1 % Normal [facility] Comment on above: Order Comment: Speci men Type: BLOOD SPECIMEN Performed By: #### 5 7021-8 ####[facility] LABORATORYCLIA [id number] [address] MCH (RBC) [Entitic mass] 27.6 pg Normal 26.0-34.0 [facility] Comment on above: Order Comment: Speci men Type: BLOOD SPECIMEN Performed By: #### 5 7021-8 ####[facility]ATORYCLIA [id number] [address] MCHC (RBC) [Mass/Vol] 30.7 g/dL Normal 30.5-36.0 [facility] Comment on above: Order Comment: Speci men Type: BLOOD SPECIMEN Performed By: #### 5 7021-8 ####[facility]ATORYCLIA [id number] [address] MCV (RBC) [Entitic vol] 89.8 fL Normal 80.0-100.0 [facility] Comment on above: Order Comment: Speci men Type: BLOOD SPECIMEN Performed By: #### 5 7021-8 ####[facility]ORATORYCLIA [id number] [address] Monocytes (Bld) [#/Vol] 0.82 10*3/uL Normal <0.87 [facility] Comment on above: Order Comment: Speci men Type: BLOOD SPECIMEN Performed By: #### 5 7021-8 ####[facility]ATORYCLIA [id number] [address] Monocytes/100 WBC (Bld) 8.1 % Normal [facility] Comment on above: Order Comment: Speci men Type: BLOOD SPECIMEN Performed By: #### 5 7021-8 ####[facility]ORATORYCLIA [id number] [address] Neutrophils (Bld) [#/Vol] 7.74 10*3/uL High 1.45-7.50 [facility] Comment on above: Order Comment: Speci men Type: BLOOD SPECIMEN Performed By: #### 5 7021-8 ####[facility]ORATORYCLIA [id number] [address] Neutrophils/100 WBC (Bld) 76.3 % Normal [facility] Comment on above: Order Comment: Speci men Type: BLOOD SPECIMEN Performed By: #### 5 7021-8 ####[facility]ORATORYCLIA [id number] [address] Nucleated RBC (Bld) [#/Vol] 10*3/uL Normal <0.01 [facility] Comment on above: Order Comment: Speci men Type: BLOOD SPECIMEN Performed By: #### 5 7021-8 ####[facility]ATORYCLIA [id number] [address] Nucleated RBC/100 WBC (Bld) [Ratio] 0.0 /100 WBC Normal 0.0 [facility] Comment on above: Order Comment: Speci men Type: BLOOD SPECIMEN Performed By: #### 5 7021-8 ####[facility]ATORYCLIA [id number] [address] Platelet mean volume (Bld) [Entitic vol] 10.4 fL Normal 9.0-12.7 [facility] Comment on above: Order Comment: Speci men Type: BLOOD SPECIMEN Performed By: #### 5 7021-8 ####[facility]ATORYCLIA [id number] [address] Platelets (Bld) [#/Vol] 236 10*3/uL Normal 150-400 [facility] Comment on above: Order Comment: Speci men Type: BLOOD SPECIMEN Performed By: #### 5 7021-8 ####[facility]ORATORYCLIA [id number] [address] RBC (Bld) [#/Vol] 4.50 10*6/uL Normal 4.20-6.00 [facility] Comment on above: Order Comment: Speci men Type: BLOOD SPECIMEN Performed By: #### 5 7021-8 ####[facility]ATORYCLIA [id number] [address] WBC (Bld) [#/Vol] 10.14 10*3/uL Normal 3.70-11.00 [facility] Comment on above: Order Comment: Speci men Type: BLOOD SPECIMEN Performed By: #### 5 7021-8 ####[facility]ORATORYCLIA [id number] [address] CBC panel Auto (Bld)on 06-07 Erythrocyte distribution width (RBC) [Ratio] 15.8 % High 11.5-15.0 [facility] Comment on above: Order Comment: Speci men Type: BLOOD SPECIMEN Performed By: #### 5 8410-2 ####[facility]ATORYCLIA [id number] [address] Hematocrit (Bld) [Volume fraction] 40.0 % Normal 39.0-51.0 [facility] Comment on above: Order Comment: Speci men Type: BLOOD SPECIMEN Performed By: #### 5 8410-2 ####[facility]ORATORYCLIA [id number] [address] Hemoglobin (Bld) [Mass/Vol] 12.3 g/dL Low 13.0-17.0 [facility] Comment on above: Order Comment: Speci men Type: BLOOD SPECIMEN Performed By: #### 5 8410-2 ####[facility]ORATORYCLIA [id number] [address] MCH (RBC) [Entitic mass] 27.3 pg Normal 26.0-34.0 [facility] Comment on above: Order Comment: Speci men Type: BLOOD SPECIMEN Performed By: #### 5 8410-2 ####[facility] LABORATORYCLIA [id number] [address] MCHC (RBC) [Mass/Vol] 30.8 g/dL Normal 30.5-36.0 [facility] Comment on above: Order Comment: Speci men Type: BLOOD SPECIMEN Performed By: #### 5 8410-2 ####[facility]ORATORYCLIA [id number] [address] MCV (RBC) [Entitic vol] 88.7 fL Normal 80.0-100.0 [facility] Comment on above: Order Comment: Speci men Type: BLOOD SPECIMEN Performed By: #### 5 8410-2 ####[facility] LABORATORYCLIA [id number] [address] Nucleated RBC (Bld) [#/Vol] 10*3/uL Normal <0.01 [facility] Comment on above: Order Comment: Speci men Type: BLOOD SPECIMEN Performed By: #### 5 8410-2 ####[facility] LABORATORYCLIA [id number] [address] Platelet mean volume (Bld) [Entitic vol] 10.0 fL Normal 9.0-12.7 [facility] Comment on above: Order Comment: Speci men Type: BLOOD SPECIMEN Performed By: #### 5 8410-2 ####[facility] LABORATORYCLIA [id number] [address] Platelets (Bld) [#/Vol] 234 10*3/uL Normal 150-400 [facility] Comment on above: Order Comment: Speci men Type: BLOOD SPECIMEN Performed By: #### 5 8410-2 ####[facility]ORATORYCLIA [id number] [address] OF [facility] RBC (Bld) [#/Vol] 4.51 10*6/uL Normal 4.20-6.00 [facility] Comment on above: Order Comment: Speci men Type: BLOOD SPECIMEN Performed By: #### 5 8410-2 ####[facility]ORATORYCLIA [id number] [address] WBC (Bld) [#/Vol] 11.47 10*3/uL High 3.70-11.00 [facility] Comment on above: Order Comment: Speci men Type: BLOOD SPECIMEN Performed By: #### 5 8410-2 ####[facility]ATORYCLIA [id number] [address] CONSULT PROGon 06-07-2021 CONSULT PROG Normal [facility] CONSULT PROG Normal [facility] CSF MANUAL DIFFon 06-07-2021 DIF TTL, CSF 92 cells counted Normal [facility] Comment on above: Order Comment: Speci men Type: CEREBROSPINAL FLUID Performed By: #### 3 4563-7, [id number], [id number] ####[facility]ATORYCLIA [id number] [address] EOSIN%, CSF 1 % Normal [facility] Comment on above: Order Comment: Speci men Type: CEREBROSPINAL FLUID Performed By: #### 3 4563-7, [id number], [id number] ####[facility]ATORYCLIA [id number] [address] LYMPH%, CSF 21 % Low 50-90 [facility] Comment on above: Order Comment: Speci men Type: CEREBROSPINAL FLUID Performed By: #### 3 4563-7, [id number], [id number] ####[facility]ATORYCLIA [id number] [address] MACRO%, CSF 27 % High <1 [facility] Comment on above: Order Comment: Speci men Type: CEREBROSPINAL FLUID Result Comment: Tati ected result: Previously reported as 22 % on 06/07/2021 at 1:49 PM EST. Performed By: #### 3 4563-7, [id number], [id number] ####[facility]ATORYCLIA [id number] [address] MONO%, CSF 36 % Normal 10-50 [facility] Comment on above: Order Comment: Speci men Type: CEREBROSPINAL FLUID Performed By: #### 3 4563-7, [id number], [id number] ####[facility]ATORYCLIA [id number] [address] NEUT%, CSF 11 % High 0-3 [facility] Comment on above: Order Comment: Speci men Type: CEREBROSPINAL FLUID Performed By: #### 3 4563-7, [id number], [id number] ####[facility]ATORYCLIA [id number] [address] OTHER CL%, CSF 4 % Normal [facility] Comment on above: Order Comment: Speci men Type: CEREBROSPINAL FLUID Result Comment: Path review to follow.Corrected result: Previously reported as 10 % on 06/07/2021 at 1:49 PM EST. Performed By: #### 3 4563-7, [id number], [id number] ####[facility] LABORATORYCLIA [id number] [address] CSF PATHOLOGIST INTERP (LAB REFLEX ORDER-NO BILL)on 06-07-2021 CSF STAFF REVIEW Negative for maligna nt cells. Rare immature myeloid or ventricular lining cells. Normal [facility] Comment on above: Order Comment: Speci men Type: CEREBROSPINAL FLUID Performed By: #### 3 4563-7, [id number], [id number] ####[facility]ORATORYCLIA [id number] [address] Pathologist name Reviewed by Eloise rebolledo MD [facility] Comment on above: Order Comment: Speci men Type: CEREBROSPINAL FLUID Performed By: #### 3 4563-7, [id number], [id number] ####[facility]ORATORYCLIA [id number] [address] BRAIN WO IVCONon 06-07-19 CT BRAIN WO IVCON Normal [facility] CT BRAIN WO IVCON Normal [facility] Cell count panel (CSF)on Clarity (CSF) Clear Normal Clear [facility] Comment on above: Order Comment: Speci men Type: CEREBROSPINAL FLUID Performed By: #### 3 4563-7, [id number], [id number] ####[facility]ORATORYCLIA [id number] [address] Clarity (Unsp spec) Not Indicated Normal Clear [facility] Comment on above: Order Comment: Speci men Type: CEREBROSPINAL FLUID Performed By: #### 3 4563-7, [id number], [id number] ####[facility]ATORYCLIA [id number] [address] Color (CSF) Colorless Normal Colorless [facility] Comment on above: Order Comment: Speci men Type: CEREBROSPINAL FLUID Performed By: #### 3 4563-7, [id number], [id number] ####[facility]ORATORYCLIA [id number] [address] Color (Spun CSF) Not Indicated Normal Colorless [facility] Comment on above: Order Comment: Speci men Type: CEREBROSPINAL FLUID Performed By: #### 3 4563-7, [id number], [id number] ####[facility]ATORYCLIA [id number] [address] CSF TUBE NUMBER [employer] Normal [facility] Comment on above: Order Comment: Speci men Type: CEREBROSPINAL FLUID Performed By: #### 3 4563-7, [id number], [id number] ####[facility]ATORYCLIA [id number] [address] RBC Manual cnt (CSF) [#/Vol] 42 cells/uL High 0-5 [facility] Comment on above: Order Comment: Speci men Type: CEREBROSPINAL FLUID Performed By: #### 3 4563-7, [id number], [id number] ####[facility]ORATORYCLIA [id number] [address] WBC Manual cnt (CSF) [#/Vol] 1 cells/uL Normal 0-[address] [place] [address] Comment on above: Order Comment: Speci men Type: CEREBROSPINAL FLUID Performed By: #### 3 4563-7, [id number], [id number] ####[facility]ATORYCLIA [id number] [address] OF [facility] Glucose CSF-ncon 2 Glucose (CSF) [Mass/Vol] 92 mg/dL High 40-70 [facility] Comment on above: Order Comment: Speci men Type: CEREBROSPINAL FLUID Result Comment: Lumb ar CSF glucose values of healthy patients are approximately 60% of the plasma values and must always be compared with a concurrently measured plasma value for adequate clinical interpretation.References: 1. Glucose HK (GLUC3) [package insert V 12.0 [place]]. [employer], [place], [place]. September 2015. 2. Michelle Moore, Loki HGarfield (2015). Chapter 7: Glucose and Lactate. F. Irina rose al.(eds.), Cerebrospinal Fluid in Clinical Neurology. [place]: [employer]. Performed By: #### 2 880-3, 2342-4 ####[facility] LABORATORYCLIA [id number] [address] OF [facility] Lactate (Bld) [Moles/Vol]on 06-07-2021 Lactate [Moles/Vol] 0.9 mmol/L Normal 0.5-2.2 [facility] Comment on above: Order Comment: Speci men Type: BLOOD SPECIMEN Performed By: #### 3 2693-4 ####[facility]ORATORYCLIA [id number] [address] Lipase SerPl-cCncon 06-07-19 22 Lipase [Catalytic activity/Vol] 35 U/L Normal 16-61 [facility] Comment on above: Order Comment: Speci men Type: BLOOD SPECIMEN Performed By: #### 3 040-3, PROCAL ####[facility]ORATORYCLIA [id number] [address] Magnesium SerPl-mCncon 06-07 Magnesium [Mass/Vol] 2.7 mg/dL High 1.7-2.3 [facility] Comment on above: Order Comment: Speci men Type: BLOOD SPECIMEN Performed By: #### 1 9123-9, 2777-1, 28035-0 ####[facility]ORATORYCLIA [id number] [address] [place] PROCALCITONIN (LAB)on 2021 Procalcitonin [Mass/Vol] 0.13 ng/mL High <0.09 [facility] Comment on above: Order Comment: Speci men Type: BLOOD SPECIMEN Result Comment: For a guided interpretation of test results, please visit the Change in Procalcitonin Calculator, [email or web address]. Performed By: #### 3 040-3, PROCAL ####[facility]ORATORYCLIA [id number] [address] Phosphate SerPl-mCncon 06-07 Phosphate [Mass/Vol] 1.9 mg/dL Low 2.7-4.8 [facility] Comment on above: Order Comment: Speci men Type: BLOOD SPECIMEN Performed By: #### 1 9123-9, 2777-1, 20513-4 ####[facility]ATORYCLIA [id number] [address] Prot CSF-mCncon 06-07-2021 Protein (CSF) [Mass/Vol] 33 mg/dL Normal 15-45 [facility] Comment on above: Order Comment: Speci men Type: CEREBROSPINAL FLUID Performed By: #### 2 880-3, 2342-4 ####[facility]ORATORYCLIA [id number] [address] OF [facility] SARS-CoV-2 RNA Resp Ql MEGAN+p robeon 06-07-2021 SARS-CoV-2 (COVID-19) RNA MEGAN+probe Ql (Resp) COVID 19 RESULT: SARS-CoV-2 (Agent of COVID-19) Not Detected by PCR. This test has been authorized by FDA under an Emergency Use Authorization (EUA). Normal [facility] Comment on above: Performed By: #### 9 4500-6 ####[facility]ORATORYCLIA [id number] [address] TYPE AND SCREENon 06-07-2021 ABO O Normal [facility] Comment on above: Order Comment: Speci men Type: BLOOD SPECIMEN Performed By: #### T SCR ####[facility]LOOD BANKCLIA [id number] [place] [address] [facility] HISTORICAL AB SCR STATUS Negative Normal [facility] Comment on above: Order Comment: Speci men Type: BLOOD SPECIMEN Performed By: #### T SCR ####[facility] BLOOD BANKCLIA [id number] [place] [address] [facility] Rh Nom (Bld) Positive Normal [facility] Comment on above: Order Comment: Speci men Type: BLOOD SPECIMEN Performed By: #### T SCR ####[facility] BLOOD BANKCLIA [id number] [place] [address] [facility] TYPE AND SCREEN EXPIRATION 06/10/2021 23:59 Normal [facility] Comment on above: Order Comment: Speci men Type: BLOOD SPECIMEN Performed By: #### T SCR ####[facility] BLOOD BANKCLIA [id number] [address] Vancomycin random [Mass/Vol] on 06-07-2021 Vancomycin [Mass/Vol] 16.5 ug/mL Normal 10.0-20.0 [facility] Comment on above: Order Comment: Speci men Type: BLOOD SPECIMEN Result Comment: Refe rence ranges and high/low indicator flags are provided as general guidelines only. The treating physician must determine appropriate target levels/dosing based on the specific clinical situation. Performed By: #### 4 091-5 ####[facility] LABORATORYCLIA [id number] [address] [place] XR CHEST 1V FRONTAL PORTon 0 06-07-2021 XR CHEST 1V FRONTAL PORT Normal [facility] Basic metabolic 2000 panelon 06-06-2021 Anion gap [Moles/Vol] 11 mmol/L Normal 9-18 [facility] Comment on above: Order Comment: Speci men Type: BLOOD SPECIMEN Performed By: #### 2 4321-2, 62271-7, 2777-1 ####[facility]ORATORYCLIA [id number] [address] Calcium [Mass/Vol] 8.6 mg/dL Normal 8.5-10.2 [facility] Comment on above: Order Comment: Speci men Type: BLOOD SPECIMEN Performed By: #### 2 4321-2, , 2776-05 ####[facility] LABORATORYCLIA [id number] [address] STATES OF [facility] Chloride [Moles/Vol] 108 mmol/L High 97-105 [facility] Comment on above: Order Comment: Speci men Type: BLOOD SPECIMEN Performed By: #### 2 1-2, , 2776-05 ####[facility] LABORATORYCLIA [id number] [address] [place] CO2 [Moles/Vol] 25 mmol/L Normal 22-30 [facility] Comment on above: Order Comment: Speci men Type: BLOOD SPECIMEN Performed By: #### 2 4321-2, , 2776-05 ####[facility]ORATORYCLIA [id number] [address] [place] Creatinine [Mass/Vol] 0.76 mg/dL Normal 0.73-1.22 [facility] Comment on above: Order Comment: Speci men Type: BLOOD SPECIMEN Performed By: #### 2 4321-2, , 2776-05 ####[facility] LABORATORYCLIA [id number] [place] [address] [place] GFR/1.73 sq M.predicted MDRD (S/P/Bld) [Vol rate/Area] mL/min/{1.73_m2} Normal [facility] Comment on above: Order [...] reflect actual GFR. Performed By: #### 2 4320-2, , 2776-05 ####[facility]ORATORYCLIA [id number] [place] [address] [place] Glucose [Mass/Vol] 116 mg/dL High 74-99 [facility] Comment on above: Order Comment: Speci men Type: BLOOD SPECIMEN Result Comment: The [place] Diabetes Association (ADA) provides guidance for cutoff [...] Standards of Medical Care in Diabetes 2016, [place] Diabetes Association. Diabetes Care. 2016.39(Suppl 1). Performed By: #### 2 4320-2, , 2776-05 ####[facility]ORATORYCLIA [id number] [place] [address] [place] Potassium [Moles/Vol] 3.5 mmol/L Low 3.7-5.1 [facility] Comment on above: Order Comment: Speci men Type: BLOOD SPECIMEN Performed By: #### 2 4320-2, , 2776-05 ####[facility]ORATORYCLIA [id number] [place] [address] [place] Sodium [Moles/Vol] 144 mmol/L Normal 136-144 [facility] Comment on above: Order Comment: Speci men Type: BLOOD SPECIMEN Performed By: #### 2 4320-2, , 2776-05 ####[facility]ORATORYCLIA [id number] [place] [address] [place] Urea nitrogen [Mass/Vol] 31 mg/dL High 9-24 [facility] Comment on above: Order Comment: Speci men Type: BLOOD SPECIMEN Performed By: #### 2 4321-2, 91835-2, 2777-1 ####[facility] LABORATORYCLIA [id number] [address] OF [facility] CASE MANAGEMon 06-06-2021 CASE MANAGEM Normal [facility] CBC panel Auto (Bld)on 06-06 Erythrocyte distribution width (RBC) [Ratio] 15.8 % High 11.5-15.0 [facility] Comment on above: Order Comment: Speci men Type: BLOOD SPECIMEN Performed By: #### 5 8410-2 ####[facility] LABORATORYCLIA [id number] [address] Hematocrit (Bld) [Volume fraction] 39.5 % Normal 39.0-51.0 [facility] Comment on above: Order Comment: Speci men Type: BLOOD SPECIMEN Performed By: #### 5 8410-2 ####[facility]ORATORYCLIA [id number] [address] Hemoglobin (Bld) [Mass/Vol] 12.2 g/dL Low 13.0-17.0 [facility] Comment on above: Order Comment: Speci men Type: BLOOD SPECIMEN Performed By: #### 5 8410-2 ####[facility]ORATORYCLIA [id number] [address] MCH (RBC) [Entitic mass] 27.8 pg Normal 26.0-34.0 [facility] Comment on above: Order Comment: Speci men Type: BLOOD SPECIMEN Performed By: #### 5 8410-2 ####[facility]ORATORYCLIA [id number] [address] MCHC (RBC) [Mass/Vol] 30.9 g/dL Normal 30.5-36.0 [facility] Comment on above: Order Comment: Speci men Type: BLOOD SPECIMEN Performed By: #### 5 8410-2 ####[facility] LABORATORYCLIA [id number] [address] MCV (RBC) [Entitic vol] 90.0 fL Normal 80.0-100.0 [facility] Comment on above: Order Comment: Speci men Type: BLOOD SPECIMEN Performed By: #### 5 8410-2 ####[facility]ATORYCLIA [id number] [address] Nucleated RBC (Bld) [#/Vol] 10*3/uL Normal <0.01 [facility] Comment on above: Order Comment: Speci men Type: BLOOD SPECIMEN Performed By: #### 5 8410-2 ####[facility]ATORYCLIA [id number] [address] Platelet mean volume (Bld) [Entitic vol] 10.4 fL Normal 9.0-12.7 [facility] Comment on above: Order Comment: Speci men Type: BLOOD SPECIMEN Performed By: #### 5 8410-2 ####[facility]ATORYCLIA [id number] [address] Platelets (Bld) [#/Vol] 236 10*3/uL Normal 150-400 [facility] Comment on above: Order Comment: Speci men Type: BLOOD SPECIMEN Performed By: #### 5 8410-2 ####[facility]ATORYCLIA [id number] [address] RBC (Bld) [#/Vol] 4.39 10*6/uL Normal 4.20-6.00 [facility] Comment on above: Order Comment: Speci men Type: BLOOD SPECIMEN Performed By: #### 5 8410-2 ####[facility]ATORYCLIA [id number] [address] WBC (Bld) [#/Vol] 9.74 10*3/uL Normal 3.70-11.00 [facility] Comment on above: Order Comment: Speci men Type: BLOOD SPECIMEN Performed By: #### 5 8410-2 ####[facility] LABORATORYCLIA [id number] [place] [address] [place] CONSULT PROGon 06-06-2021 CONSULT PROG Normal [facility] CONSULT PROG Normal [facility] Magnesium SerPl-mCncon 06-06 Magnesium [Mass/Vol] 2.5 mg/dL High 1.7-2.3 [facility] Comment on above: Order Comment: Speci men Type: BLOOD SPECIMEN Performed By: #### 2 4321-2, 59376-1, 2777-1 ####[facility] LABORATORYCLIA [id number] [place] [id number] [place] [facility] PT panel Coag (PPP)on 2021 INR Coag (PPP) [Relative time] 1.0 {INR} Normal 0.9-1.3 [facility] Comment on above: Order Comment: Speci men Type: BLOOD SPECIMEN Result Comment: Yris min K Antagonist (VKA) Therapeutic Range: INR 2 to 3 (Target INR of 2.5)Note: For patients treated with VKA drugs, such as warfarin, the [place] [employer] 2012 Guideline recommends [...] 70: 252-289 Performed By: #### 3 4528-0, 65639-2 ####[facility] LABORATORYCLIA [id number] [place] [address] [place] PT Coag (PPP) [Time] 11.4 s Normal 9.7-13.0 [facility] Comment on above: Order Comment: Speci men Type: BLOOD SPECIMEN Performed By: #### 3 4528-0, 49513-4 ####[facility] LABORATORYCLIA [id number] [address] Phosphate SerPl-mCncon 06-06 Phosphate [Mass/Vol] 2.3 mg/dL Low 2.7-4.8 [facility] Comment on above: Order Comment: Speci men Type: BLOOD SPECIMEN Performed By: #### 2 4321-2, 41017-9, 2777-1 ####[facility] LABORATORYCLIA [id number] [address] THROMBOGRAPH HEPARINASE PANE Kiel 06-06-2021 Clot angle after addition of heparinase TEG (Bld) [Angle] 70.2 degrees Normal 47.0-74.0 [facility] Comment on above: Order Comment: Speci men Type: BLOOD SPECIMEN Performed By: #### T EGHPP ####[facility] LABORATORYCLIA [id number] [address] Clot Lysis 30 Min post maximum clot amplitude TEG (Bld) [Length fraction] 0.0 % Normal 0.0-8.0 [facility] Comment on above: Order Comment: Speci men Type: BLOOD SPECIMEN Performed By: #### T EGHPP ####[facility] LABORATORYCLIA [id number] [address] Clotting time after addition of heparinase TEG (Bld) 5.7 minutes Normal 4.0-10.0 [facility] Comment on above: Order Comment: Speci men Type: BLOOD SPECIMEN Performed By: #### T EGHPP ####[facility] LABORATORYCLIA [id number] [address] Coagulation index TEG Qn (Bld) 1.2 Normal -4.6-3.2 [facility] Comment on above: Order Comment: Speci men Type: BLOOD SPECIMEN Result Comment: The Coagulation Index, a secondary parameter, is labeled by the mining support worker as for "research use only" and is used per the mining support worker's instructions. Its performance characteristics were determined by [facility]'s Isrrael Perez [facility] Pathology and Laboratory Medicine [place] in a manner consistent with CLIA requirements. This test has not been cleared by the U.S. Food and Drug Administration. Performed By: #### T EGHPP ####[facility] LABORATORYCLIA [id number] [address] Maximum clot firmness after addition of heparinase TEG (Bld) [Length] 64.0 mm Normal 51.0-75.0 [facility] Comment on above: Order Comment: Speci men Type: BLOOD SPECIMEN Performed By: #### T EGHPP ####[facility]CL[facility] [id number] [address] Vancomycin random [Mass/Vol] on 06-06-2021 Vancomycin [Mass/Vol] 17.4 ug/mL Normal 10.0-20.0 [facility] Comment on above: Order Comment: Speci men Type: BLOOD SPECIMEN Result Comment: Refe rence ranges and high/low indicator flags are provided as general guidelines only. The treating physician must determine appropriate target levels/dosing based on the specific clinical situation. Performed By: #### 4 091-5 ####[facility] LABORATORYCLIA [id number] [address] Vancomycin [Mass/Vol] 13.5 ug/mL Normal 10.0-20.0 [facility] Comment on above: Order Comment: Speci men Type: BLOOD SPECIMEN Result Comment: Refe rence ranges and high/low indicator flags are provided as general guidelines only. The treating physician must determine appropriate target levels/dosing based on the specific clinical situation. Performed By: #### 4 091-5 ####[facility] LABORATORYCLIA [id number] [address] aPTT PPPon 06-06-2021 aPTT Coag (PPP) [Time] 27.8 s Normal 23.0-32.4 [facility] Comment on above: Order Comment: Speci men Type: BLOOD SPECIMEN Performed By: #### 3 4528-0, 28025-5 ####[facility]ORATORYCLIA [id number] [address] OF [facility] Basic metabolic 2000 panelon 06-05-2021 Anion gap [Moles/Vol] 11 mmol/L Normal 9-18 [facility] Comment on above: Order Comment: Speci men Type: BLOOD SPECIMEN Performed By: #### 1 9123-9, 05574-1, 2776- ####[facility] LABORATORYCLIA [id number] [address] [place] Calcium [Mass/Vol] 8.6 mg/dL Normal 8.5-10.2 [facility] Comment on above: Order Comment: Speci men Type: BLOOD SPECIMEN Performed By: #### 1 9122-9, 08670-8, 2776- ####[facility]ORATORYCLIA [id number] [address] STATES OF [facility] Chloride [Moles/Vol] 108 mmol/L High 97-105 [facility] Comment on above: Order Comment: Speci men Type: BLOOD SPECIMEN Performed By: #### 1 23-9, 31058-0, 2776- ####[facility]ORATORYCLIA [id number] [address] STATES OF [facility] CO2 [Moles/Vol] 25 mmol/L Normal 22-30 [facility] Comment on above: Order Comment: Speci men Type: BLOOD SPECIMEN Performed By: #### 1 23-9, 13157-5, 2776- ####[facility] LABORATORYCLIA [id number] [address] [place] Creatinine [Mass/Vol] 0.77 mg/dL Normal 0.73-1.22 [facility] Comment on above: Order Comment: Speci men Type: BLOOD SPECIMEN Performed By: #### 1 9123-9, 73129-5, 2776- ####[facility] LABORATORYCLIA [id number] [place] [id number] [place] GFR/1.73 sq M.predicted MDRD (S/P/Bld) [Vol rate/Area] mL/min/{1.73_m2} Normal [facility] Comment on above: Order [...] actual GFR. Performed By: #### 1 9123-9, 53442-8, 2777-1 ####[facility] LABORATORYCLIA [id number] [place] [address] [place] Glucose [Mass/Vol] 96 mg/dL Normal 74-99 [facility] Comment on above: Order Comment: Speci men Type: BLOOD SPECIMEN Result Comment: The [place] Diabetes Association (ADA) provides guidance for cutoff [...] Standards of Medical Care in Diabetes 2016, [place] [employer]. Diabetes Care. 2016.39(Suppl 1). Performed By: #### 1 9123-9, 44353-2, 2777-1 ####[facility] LABORATORYCLIA [id number] [place] [address] [place] Potassium [Moles/Vol] 3.9 mmol/L Normal 3.7-5.1 [facility] Comment on above: Order Comment: Speci men Type: BLOOD SPECIMEN Performed By: #### 1 9123-9, 18006-6, 2776- ####[facility] LABORATORYCLIA [id number] [address] Sodium [Moles/Vol] 144 mmol/L Normal 136-144 [facility] Comment on above: Order Comment: Speci men Type: BLOOD SPECIMEN Performed By: #### 1 9123-9, 55931-6, 2776- ####[facility]ATORYCLIA [id number] [address] Urea nitrogen [Mass/Vol] 26 mg/dL High 9-24 [facility] Comment on above: Order Comment: Speci men Type: BLOOD SPECIMEN Performed By: #### 1 9123-9, 92412-9, 2776-05 ####[facility]ATORYCLIA [id number] [address] CBC panel Auto (Bld)on 06-05 Erythrocyte distribution width (RBC) [Ratio] 15.9 % High 11.5-15.0 [facility] Comment on above: Order Comment: Speci men Type: BLOOD SPECIMEN Performed By: #### 5 8410-2 ####[facility]ATORYCLIA [id number] [address] Hematocrit (Bld) [Volume fraction] 39.6 % Normal 39.0-51.0 [facility] Comment on above: Order Comment: Speci men Type: BLOOD SPECIMEN Performed By: #### 5 8410-2 ####[facility]ATORYCLIA [id number] [address] Hemoglobin (Bld) [Mass/Vol] 12.3 g/dL Low 13.0-17.0 [facility] Comment on above: Order Comment: Speci men Type: BLOOD SPECIMEN Performed By: #### 5 8410-2 ####[facility]ATORYCLIA [id number] [place] [address] MCH (RBC) [Entitic mass] 28.1 pg Normal 26.0-34.0 [facility] Comment on above: Order Comment: Speci men Type: BLOOD SPECIMEN Performed By: #### 5 8410-2 ####[facility]ATORYCLIA [id number] [address] MCHC (RBC) [Mass/Vol] 31.1 g/dL Normal 30.5-36.0 [facility] Comment on above: Order Comment: Speci men Type: BLOOD SPECIMEN Performed By: #### 5 8410-2 ####[facility]ATORYCLIA [id number] [address] MCV (RBC) [Entitic vol] 90.4 fL Normal 80.0-100.0 [facility] Comment on above: Order Comment: Speci men Type: BLOOD SPECIMEN Performed By: #### 5 8410-2 ####[facility]ATORYCLIA [id number] [address] Nucleated RBC (Bld) [#/Vol] 10*3/uL Normal <0.01 [facility] Comment on above: Order Comment: Speci men Type: BLOOD SPECIMEN Performed By: #### 5 8410-2 ####[facility]ATORYCLIA [id number] [address] Platelet mean volume (Bld) [Entitic vol] 10.5 fL Normal 9.0-12.7 [facility] Comment on above: Order Comment: Speci men Type: BLOOD SPECIMEN Performed By: #### 5 8410-2 ####[facility]ATORYCLIA [id number] [address] Platelets (Bld) [#/Vol] 224 10*3/uL Normal 150-400 [facility] Comment on above: Order Comment: Speci men Type: BLOOD SPECIMEN Performed By: #### 5 8410-2 ####[facility]ATORYCLIA [id number] [address] RBC (Bld) [#/Vol] 4.38 10*6/uL Normal 4.20-6.00 [facility] Comment on above: Order Comment: Speci men Type: BLOOD SPECIMEN Performed By: #### 5 8410-2 ####[facility]ATORYCLIA [id number] [address] WBC (Bld) [#/Vol] 9.66 10*3/uL Normal 3.70-11.00 [facility] Comment on above: Order Comment: Speci men Type: BLOOD SPECIMEN Performed By: #### 5 8410-2 ####[facility]ATORYCLIA [id number] [address] CONSULT PROGon 06-05-2021 CONSULT PROG Normal [facility] Gas and Carbon monoxide pane l (BldV)on 06-05-2021 Base excess Calc (BldV) [Moles/Vol] 1.8 mmol/L Normal 0-2 [facility] Comment on above: Order Comment: Speci men Type: VENOUS BLOOD SPECIMEN Performed By: #### 2 4344-4 ####[facility]ATORYCLIA [id number] [address] Body temperature 100.4 [degF] Normal [facility] Comment on above: Order Comment: Speci men Type: VENOUS BLOOD SPECIMEN Performed By: #### 2 4344-4 ####[facility]ATORYCLIA [id number] [address] CALCIUM IONIZED, PH CORRECTED 1.21 mmol/L Normal 1.08-1.30 [facility] Comment on above: Order Comment: Speci men Type: VENOUS BLOOD SPECIMEN Performed By: #### 2 4344-4 ####[facility]ATORYCLIA [id number] [address] Calcium.ionized (BldV) [Mass/Vol] 1.19 mmol/L Normal 1.08-1.30 [facility] Comment on above: Order Comment: Speci men Type: VENOUS BLOOD SPECIMEN Performed By: #### 2 4344-4 ####[facility]ATORYCLIA [id number] [place], [place] [id number] [place] [address] Carboxyhemoglobin (BldV) [Mass fraction] 1.0 % Normal 0.0-2.0 [facility] Comment on above: Order Comment: Speci men Type: VENOUS BLOOD SPECIMEN Result Comment: Carb oxyhemoglobin Reference Range for Smokers: 2.0-8.0% Performed By: #### 2 4344-4 ####[facility] [facility]ATORYCLIA [id number] [address] [place] CO2 (BldV) [Partial pressure] 41 mm[Hg] Low 42-55 [facility] Comment on above: Order Comment: Speci men Type: VENOUS BLOOD SPECIMEN Performed By: #### 2 4344-4 ####[facility] [facility]ATORYCLIA [id number] [address] [place] CO2 [Moles/Vol] 23.4 mmol/L Low 25-29 [facility] Comment on above: Order Comment: Speci men Type: VENOUS BLOOD SPECIMEN Performed By: #### 2 4344-4 ####[facility]ATORYCLIA [id number] [address] OF [facility] CO2 adjusted to patient's actual temperature (BldV) [Partial pressure] 43 mmHg Normal 42-55 [facility] Comment on above: Order Comment: Speci men Type: VENOUS BLOOD SPECIMEN Performed By: #### 2 4344-4 ####[facility] [facility]ATORYCLIA [id number] [address] [place] Glucose [Mass/Vol] 101 mg/dL Normal 60-105 [facility] Comment on above: Order Comment: Speci men Type: VENOUS BLOOD SPECIMEN Performed By: #### 2 4344-4 ####[facility] [facility]ORYCLIA [id number] [address] [place] HCO3 (Bld) [Moles/Vol] 26.0 mmol/L Normal 24-28 [facility] Comment on above: Order Comment: Speci men Type: VENOUS BLOOD SPECIMEN Performed By: #### 2 4344-4 ####[facility]ATORYCLIA [id number] [address] Hematocrit (Bld) [Volume fraction] 38.4 % Low 39.0-51.0 [facility] Comment on above: Order Comment: Speci men Type: VENOUS BLOOD SPECIMEN Performed By: #### 2 4344-4 ####[facility]ORATORYCLIA [id number] [address] Hemoglobin (Bld) [Mass/Vol] 12.5 g/dL Low 13.0-17.0 [facility] Comment on above: Order Comment: Speci men Type: VENOUS BLOOD SPECIMEN Performed By: #### 2 4344-4 ####[facility]ATORYCLIA [id number] [address] Methemoglobin (Bld) [Mass fraction] % Normal 0.0-1.5 [facility] Comment on above: Order Comment: Speci men Type: VENOUS BLOOD SPECIMEN Performed By: #### 2 4344-4 ####[facility]ATORYCLIA [id number] [address] O2 THERAPY Ventilator Normal [facility] Comment on above: Order Comment: Speci men Type: VENOUS BLOOD SPECIMEN Performed By: #### 2 4344-4 ####[facility] LABORATORYCLIA [id number] [address] Oxygen (BldV) [Partial pressure] 44 mm[Hg] Normal 35-45 [facility] Comment on above: Order Comment: Speci men Type: VENOUS BLOOD SPECIMEN Performed By: #### 2 4344-4 ####[facility] [facility]ATORYCLIA [id number] [address] Oxygen adjusted to patient's actual temperature (BldV) [Partial pressure] 46.8 mmHg High 35-45 [facility] Comment on above: Order Comment: Speci men Type: VENOUS BLOOD SPECIMEN Performed By: #### 2 4344-4 ####[facility]ORATORYCLIA [id number] [place], [place] [address] [place] [address] STATES OF [facility] Oxygen saturation in Blood 76.5 % Normal 60-85 [facility] Comment on above: Order Comment: Speci men Type: VENOUS BLOOD SPECIMEN Performed By: #### 2 4344-4 ####[facility] [facility]ATORYCLIA [id number] [place], [place] [address] [place] [address] [place] Oxyhemoglobin (BldV) [Mass fraction] 75 % Normal 60-85 [facility] Comment on above: Order Comment: Speci men Type: VENOUS BLOOD SPECIMEN Performed By: #### 2 4344-4 ####[facility] [facility]ATORYCLIA [id number] [address] [place] pH (BldV) 7.42 [pH] Normal 7.32-7.42 [facility] Comment on above: Order Comment: Speci men Type: VENOUS BLOOD SPECIMEN Performed By: #### 2 4344-4 ####[facility] [facility]ATORYCLIA [id number] [address] OF [facility] pH adjusted to patient's actual temperature (BldV) 7.40 Normal 7.32-7.42 [facility] Comment on above: Order Comment: Speci men Type: VENOUS BLOOD SPECIMEN Performed By: #### 2 4344-4 ####[facility]ORATORYCLIA [id number] [place], [place] [address] [place] [address] [place] Potassium [Moles/Vol] 3.7 mmol/L Normal 3.5-5.0 [facility] Comment on above: Order Comment: Speci men Type: VENOUS BLOOD SPECIMEN Performed By: #### 2 4344-4 ####[facility] [facility]ATORYCLIA [id number] [address] STATES OF [facility] Sodium [Moles/Vol] 141 mmol/L Normal 136-144 [facility] Comment on above: Order Comment: Speci men Type: VENOUS BLOOD SPECIMEN Performed By: #### 2 4344-4 ####[facility] [facility]ORATORYCLIA [id number] [place] [address] [place] Magnesium SerPl-mCncon 06-05 Magnesium [Mass/Vol] 2.3 mg/dL Normal 1.7-2.3 [facility] Comment on above: Order Comment: Speci men Type: BLOOD SPECIMEN Performed By: #### 1 9123-9, 28021-2, 2777-1 ####[facility]ATORYCLIA [id number] [place] [address] [place] Phosphate SerPl-mCncon 06-05 Phosphate [Mass/Vol] 2.9 mg/dL Normal 2.7-4.8 [facility] Comment on above: Order Comment: Speci men Type: BLOOD SPECIMEN Performed By: #### 1 9123-9, 62320-9, 2777-1 ####[facility]ATORYCLIA [id number] [address] [place] Vancomycin random [Mass/Vol] on 06-05-2021 Vancomycin [Mass/Vol] 23.2 ug/mL High 10.0-20.0 [facility] Comment on above: Order Comment: Speci men Type: BLOOD SPECIMEN Result Comment: Refe rence ranges and high/low indicator flags are provided as general guidelines only. The treating physician must determine appropriate target levels/dosing based on the specific clinical situation. Performed By: #### 4 091-5 ####[facility]ORATORYCLIA [id number] [place] [address] [place] (1,3)-R-L-HNIRKUef 2 (1,3) B-D GLUCAN <31 Normal <60 [facility] Comment on above: Order Comment: Speci men Type: BLOOD SPECIMEN Performed By: #### B DGLUC ####[facility] LABCLIA [id number] [id number] [address] [place] (1,3) B-D GLUCAN, QUAL Negative Normal NEGAT [facility] Comment on above: Order Comment: Speci men Type: BLOOD SPECIMEN Result Comment: Cert ain fungi, such as the genus Cryptococcus which produces very low levels of (1,3)-svah-R-gphoyb, may not result in serum (1,3)-dsle-S-eilobi sufficiently elevated so as to be detected by the assay. Infections with fungi of the order Mucorales such as Absidia, Mucor and Rhizopus which are not known to produce (1,3)-wmrj-K-ronpqn, are also observed to yield low serum (1,3)-ptqv-H-pheqzk titers.In addition, the yeast phase of Blastomyces dermatitidis produces little (1,3)-xxyv-T-jdfzzz and may not be detected by the assay. Performed By: #### B DGLUC ####[facility] LABCLIA [id number] N[place]ESH [id number] [address] [place] ALLIED HEALTHon 06-04-2021 ALLIED HEALTH Normal [facility] ALLIED HEALTH Normal [facility] ARTERIAL BLOOD GASESon 06-04 Base excess Calc (Bld) [Moles/Vol] 3 mmol/L High 0-2 [facility] Comment on above: Order Comment: Speci men Type: ARTERIAL BLOOD SPECIMEN Performed By: #### A LLBG ####[facility]ORATORYCLIA [id number] [address] Body temperature 98.06 [degF] Normal [facility] Comment on above: Order Comment: Speci men Type: ARTERIAL BLOOD SPECIMEN Performed By: #### A LLBG ####[facility]ATORYCLIA [id number] [address] CALCIUM IONIZED, PH CORRECTED 1.19 mmol/L Normal 1.08-1.30 [facility] Comment on above: Order Comment: Speci men Type: ARTERIAL BLOOD SPECIMEN Performed By: #### A LLBG ####[facility]ATORYCLIA [id number] [address] Calcium.ionized (BldV) [Mass/Vol] 1.14 mmol/L Normal 1.08-1.30 [facility] Comment on above: Order Comment: Speci men Type: ARTERIAL BLOOD SPECIMEN Performed By: #### A LLBG ####[facility]ATORYCLIA [id number] [address] Carboxyhemoglobin (BldA) [Mass fraction] 1.2 % Normal 0.0-2.0 [facility] Comment on above: Order Comment: Speci men Type: ARTERIAL BLOOD SPECIMEN Result Comment: Carb oxyhemoglobin Reference Range for Smokers: 2.0-8.0% Performed By: #### A LLBG ####[facility]ATORYCLIA [id number] [address] CO2 (Bld) [Partial pressure] 35 mm Hg Low 36-46 [facility] Comment on above: Order Comment: Speci men Type: ARTERIAL BLOOD SPECIMEN Performed By: #### A LLBG ####[facility]ORATORYCLIA [id number] [address] CO2 [Moles/Vol] 23.2 mmol/L Normal 22-28 [facility] Comment on above: Order Comment: Speci men Type: ARTERIAL BLOOD SPECIMEN Performed By: #### A LLBG ####[facility]ATORYCLIA [id number] [address] CO2 adjusted to patient's actual temperature (Bld) [Partial pressure] 34 mmHg Low 36-46 [facility] Comment on above: Order Comment: Speci men Type: ARTERIAL BLOOD SPECIMEN Performed By: #### A LLBG ####[facility]ATORYCLIA [id number] [address] Glucose [Mass/Vol] 115 mg/dL High 60-105 [facility] Comment on above: Order Comment: Speci men Type: ARTERIAL BLOOD SPECIMEN Performed By: #### A LLBG ####[facility]ATORYCLIA [id number] [address] HCO3 (Bld) [Moles/Vol] 26 mmol/L Normal 22-26 [facility] Comment on above: Order Comment: Speci men Type: ARTERIAL BLOOD SPECIMEN Performed By: #### A LLBG ####[facility]ORATORYCLIA [id number] [place], [place] [address] [place] [address] OF [facility] Hematocrit (Bld) [Volume fraction] 35.3 % Low 39.0-51.0 [facility] Comment on above: Order Comment: Speci men Type: ARTERIAL BLOOD SPECIMEN Performed By: #### A LLBG ####[place] [facility]ORATORYCLIA [id number] [address] OF [facility] Hemoglobin (Bld) [Mass/Vol] 11.5 g/dL Low 13.0-17.0 [facility] Comment on above: Order Comment: Speci men Type: ARTERIAL BLOOD SPECIMEN Performed By: #### A LLBG ####[facility]ATORYCLIA [id number] [address] Methemoglobin (Bld) [Mass fraction] % Normal 0.0-1.5 [facility] Comment on above: Order Comment: Speci men Type: ARTERIAL BLOOD SPECIMEN Performed By: #### A LLBG ####[facility]ATORYCLIA [id number] [address] [place] O2 THERAPY Ventilator Normal [facility] Comment on above: Order Comment: Speci men Type: ARTERIAL BLOOD SPECIMEN Performed By: #### A LLBG ####[facility]ATORYCLIA [id number] [address] Oxygen (Bld) [Partial pressure] 66 mm Hg Low 85-95 [facility] Comment on above: Order Comment: Speci men Type: ARTERIAL BLOOD SPECIMEN Performed By: #### A LLBG ####[facility] [facility]ATORYCLIA [id number] [address] Oxygen adjusted to patient's actual temperature (Bld) [Partial pressure] 64.3 mmHg Low 85-95 [facility] Comment on above: Order Comment: Speci men Type: ARTERIAL BLOOD SPECIMEN Performed By: #### A LLBG ####[facility]ATORYCLIA [id number] [address] [place] OXYGEN SATURATION, ARTERIAL 95 % Normal 95-98 [facility] Comment on above: Order Comment: Speci men Type: ARTERIAL BLOOD SPECIMEN Performed By: #### A LLBG ####[facility]ATORYCLIA [id number] [address] Oxyhemoglobin (BldA) [Mass fraction] 93 % Low 95-98 [facility] Comment on above: Order Comment: Speci men Type: ARTERIAL BLOOD SPECIMEN Performed By: #### A LLBG ####[facility]ATORYCLIA [id number] [address] pH (Bld) 7.49 [pH] High 7.35-7.45 [facility] Comment on above: Order Comment: Speci men Type: ARTERIAL BLOOD SPECIMEN Performed By: #### A LLBG ####[facility]ATORYCLIA [id number] [address] pH adjusted to patient's actual temperature (Bld) 7.49 High 7.35-7.45 [facility] Comment on above: Order Comment: Speci men Type: ARTERIAL BLOOD SPECIMEN Performed By: #### A LLBG ####[facility]ATORYCLIA [id number] [address] Potassium [Moles/Vol] 2.8 mmol/L Low 3.5-5.0 [facility] Comment on above: Order Comment: Speci men Type: ARTERIAL BLOOD SPECIMEN Performed By: #### A LLBG ####[facility]ATORYCLIA [id number] [address] Bas Metab 2000 Pnl SerPlon 0 06-04-2021 Sodium [Moles/Vol] 143 mmol/L Normal 136-144 [facility] Comment on above: Order Comment: Speci men Type: BLOOD SPECIMEN Performed By: #### 2 777-1, 07135-8, 03256-4 ####[facility]ATORYCLIA [id number] [address] Order Comment: Speci men Type: ARTERIAL BLOOD SPECIMEN Performed By: #### A LLBG ####[facility]ATORYCLIA [id number] [address] Basic metabolic 2000 panelon 06-04-2021 Anion gap [Moles/Vol] 11 mmol/L Normal 9-18 [facility] Comment on above: Order Comment: Speci men Type: BLOOD SPECIMEN Performed By: #### 2 777-1, , ####[facility] [facility]ATORYCLIA [id number] [address] Calcium [Mass/Vol] 8.5 mg/dL Normal 8.5-10.2 [facility] Comment on above: Order Comment: Speci men Type: BLOOD SPECIMEN Performed By: #### 2 777-1, , ####[facility]ATORYCLIA [id number] [address] OF [facility] Chloride [Moles/Vol] 107 mmol/L High 97-105 [facility] Comment on above: Order Comment: Speci men Type: BLOOD SPECIMEN Performed By: #### 2 777-1, , ####[facility] [facility]ATORYCLIA [id number] [address] CO2 [Moles/Vol] 25 mmol/L Normal 22-30 [facility] Comment on above: Order Comment: Speci men Type: BLOOD SPECIMEN Performed By: #### 2 777-1, , ####[facility] LABORATORYCLIA [id number] [address] [place] Creatinine [Mass/Vol] 0.77 mg/dL Normal 0.73-1.22 [facility] Comment on above: Order Comment: Speci men Type: BLOOD SPECIMEN Performed By: #### 2 777-1, , 72840-1 ####[facility] LABORATORYCLIA [id number] [place] [address] [place] GFR/1.73 sq M.predicted MDRD (S/P/Bld) [Vol rate/Area] mL/min/{1.73_m2} Normal [facility] Comment on above: Order [...] actual GFR. Performed By: #### 2 777-1, 69932-6, 04519-7 ####[facility]ORATORYCLIA [id number] [place] [address] [place] Glucose [Mass/Vol] 107 mg/dL High 74-99 [facility] Comment on above: Order Comment: Speci men Type: BLOOD SPECIMEN Result Comment: The [place] [employer] (ADA) provides guidance for cutoff [...] Standards of Medical Care in Diabetes 2016, [place] [employer]. Diabetes Care. 2016.39(Suppl 1). Performed By: #### 2 777-1, 83638-1, 96084-3 ####[facility]ATORYCLIA [id number] [place] [address] [place] Potassium [Moles/Vol] 3.1 mmol/L Low 3.7-5.1 [facility] Comment on above: Order Comment: Speci men Type: BLOOD SPECIMEN Performed By: #### 2 777-1, , 39508-9 ####[facility]ORATORYCLIA [id number] [address] Urea nitrogen [Mass/Vol] 19 mg/dL Normal 9-24 [facility] Comment on above: Order Comment: Speci men Type: BLOOD SPECIMEN Performed By: #### 2 777-1, , ####[facility]ORATORYCLIA [id number] [address] CBC panel Auto (Bld)on 06-04 Erythrocyte distribution width (RBC) [Ratio] 15.8 % High 11.5-15.0 [facility] Comment on above: Order Comment: Speci men Type: BLOOD SPECIMEN Performed By: #### 5 8410-2 ####[facility]ATORYCLIA [id number] [address] Hematocrit (Bld) [Volume fraction] 36.9 % Low 39.0-51.0 [facility] Comment on above: Order Comment: Speci men Type: BLOOD SPECIMEN Performed By: #### 5 8410-2 ####[facility]ATORYCLIA [id number] [address] Hemoglobin (Bld) [Mass/Vol] 11.2 g/dL Low 13.0-17.0 [facility] Comment on above: Order Comment: Speci men Type: BLOOD SPECIMEN Performed By: #### 5 8410-2 ####[facility]ATORYCLIA [id number] [address] MCH (RBC) [Entitic mass] 27.3 pg Normal 26.0-34.0 [facility] Comment on above: Order Comment: Speci men Type: BLOOD SPECIMEN Performed By: #### 5 8410-2 ####[facility]ATORYCLIA [id number] [address] MCHC (RBC) [Mass/Vol] 30.4 g/dL Low 30.5-36.0 [facility] Comment on above: Order Comment: Speci men Type: BLOOD SPECIMEN Performed By: #### 5 8410-2 ####[facility]ATORYCLIA [id number] [address] MCV (RBC) [Entitic vol] 89.8 fL Normal 80.0-100.0 [facility] Comment on above: Order Comment: Speci men Type: BLOOD SPECIMEN Performed By: #### 5 8410-2 ####[facility]ATORYCLIA [id number] [address] Nucleated RBC (Bld) [#/Vol] 10*3/uL Normal <0.01 [facility] Comment on above: Order Comment: Speci men Type: BLOOD SPECIMEN Performed By: #### 5 8410-2 ####[facility]ATORYCLIA [id number] [address] Platelet mean volume (Bld) [Entitic vol] 10.7 fL Normal 9.0-12.7 [facility] Comment on above: Order Comment: Speci men Type: BLOOD SPECIMEN Performed By: #### 5 8410-2 ####[facility]ATORYCLIA [id number] [address] Platelets (Bld) [#/Vol] 174 10*3/uL Normal 150-400 [facility] Comment on above: Order Comment: Speci men Type: BLOOD SPECIMEN Performed By: #### 5 8410-2 ####[facility]ATORYCLIA [id number] [address] RBC (Bld) [#/Vol] 4.11 10*6/uL Low 4.20-6.00 [facility] Comment on above: Order Comment: Speci men Type: BLOOD SPECIMEN Performed By: #### 5 8410-2 ####[facility]ATORYCLIA [id number] [address] WBC (Bld) [#/Vol] 8.29 10*3/uL Normal 3.70-11.00 [facility] Comment on above: Order Comment: Speci men Type: BLOOD SPECIMEN Performed By: #### 5 8410-2 ####[facility]ATORYCLIA [id number] [address] [place] CONSULT PROGon 06-04-2021 CONSULT PROG Normal [facility] CT BRAIN WO IVCONon 06-04-19 CT BRAIN WO IVCON Normal [facility] CT CHEST W IVCON PEon 2021 CT CHEST W IVCON PE Normal [facility] Magnesium SerPl-mCncon 06-04 Magnesium [Mass/Vol] 2.2 mg/dL Normal 1.7-2.3 [facility] Comment on above: Order Comment: Speci men Type: BLOOD SPECIMEN Performed By: #### 2 777-1, 36382-2, 28791-7 ####[facility]ATORYCLIA [id number] [address] [place] NT-proBNP SerPl-mCncon 06-04 Natriuretic peptide.B prohormone N-Terminal [Mass/Vol] 229 pg/mL High <125 [facility] Comment on above: Order Comment: Speci men Type: BLOOD SPECIMEN Performed By: #### 3 3762-6, 4091-5 ####[facility] LABORATORYCLIA [id number] [address] [place] Phosphate SerPl-mCncon 06-04 Phosphate [Mass/Vol] 2.0 mg/dL Low 2.7-4.8 [facility] Comment on above: Order Comment: Speci men Type: BLOOD SPECIMEN Performed By: #### 2 777-1, 66452-0, 22622-5 ####[facility] LABORATORYCLIA [id number] [address] [place] Vancomycin random [Mass/Vol] on 06-04-2021 Vancomycin [Mass/Vol] 35.2 ug/mL High 10.0-20.0 [facility] [facility] Comment on above: Order Comment: Speci men Type: BLOOD SPECIMEN Result Comment: Refe rence ranges and high/low indicator flags are provided as general guidelines only. The treating physician must determine appropriate target levels/dosing based on the specific clinical situation. Performed By: #### 3 3762-6, 4091-5 ####[facility] LABORATORYCLIA [id number] [address] OF [facility] XR ABDOMEN 1V SUPINEon 06-04 XR ABDOMEN 1V SUPINE Normal [facility] ALLIED HEALTHon 06-03-2021 ALLIED HEALTH Normal [facility] ARTERIAL BLOOD GASESon 06-03 Base excess Calc (Bld) [Moles/Vol] 5 mmol/L High 0-2 [facility] Comment on above: Order Comment: Speci men Type: ARTERIAL BLOOD SPECIMEN Performed By: #### A LLBG ####[facility]ATORYCLIA [id number] [address] Body temperature 99.5 [degF] Normal [facility] Comment on above: Order Comment: Speci men Type: ARTERIAL BLOOD SPECIMEN Performed By: #### A LLBG ####[facility]ORATORYCLIA [id number] [address] STATES [facility] CALCIUM IONIZED, PH CORRECTED 1.18 mmol/L Normal 1.08-1.30 [facility] Comment on above: Order Comment: Speci men Type: ARTERIAL BLOOD SPECIMEN Performed By: #### A LLBG ####[facility]ATORYCLIA [id number] [address] STATES [facility] Calcium.ionized (BldV) [Mass/Vol] 1.16 mmol/L Normal 1.08-1.30 [facility] Comment on above: Order Comment: Speci men Type: ARTERIAL BLOOD SPECIMEN Performed By: #### A LLBG ####[facility]ATORYCLIA [id number] [address] [place] Carboxyhemoglobin (BldA) [Mass fraction] 1.2 % Normal 0.0-2.0 [facility] Comment on above: Order Comment: Speci men Type: ARTERIAL BLOOD SPECIMEN Result Comment: Carb oxyhemoglobin Reference Range for Smokers: 2.0-8.0% Performed By: #### A LLBG ####[facility]ATORYCLIA [id number] [address] CO2 (Bld) [Partial pressure] 45 mm Hg Normal 36-46 [facility] Comment on above: Order Comment: Speci men Type: ARTERIAL BLOOD SPECIMEN Performed By: #### A LLBG ####[facility]ORYCLIA [id number] [address] [place] CO2 [Moles/Vol] 26.9 mmol/L Normal 22-28 [facility] Comment on above: Order Comment: Speci men Type: ARTERIAL BLOOD SPECIMEN Performed By: #### A LLBG ####[facility]ATORYCLIA [id number] [address] CO2 adjusted to patient's actual temperature (Bld) [Partial pressure] 47 mmHg High 36-46 [facility] Comment on above: Order Comment: Speci men Type: ARTERIAL BLOOD SPECIMEN Performed By: #### A LLBG ####[facility]ATORYCLIA [id number] [address] [place] Glucose [Mass/Vol] 141 mg/dL High 60-105 [facility] Comment on above: Order Comment: Speci men Type: ARTERIAL BLOOD SPECIMEN Performed By: #### A LLBG ####[facility]ATORYCLIA [id number] [address] [place] HCO3 (Bld) [Moles/Vol] 30 mmol/L High 22-26 [facility] Comment on above: Order Comment: Speci men Type: ARTERIAL BLOOD SPECIMEN Performed By: #### A LLBG ####[facility]ORYCLIA [id number] [address] [place] Hematocrit (Bld) [Volume fraction] 35.8 % Low 39.0-51.0 [facility] Comment on above: Order Comment: Speci men Type: ARTERIAL BLOOD SPECIMEN Performed By: #### A LLBG ####[facility]ATORYCLIA [id number] [address] Hemoglobin (Bld) [Mass/Vol] 11.6 g/dL Low 13.0-17.0 [facility] Comment on above: Order Comment: Speci men Type: ARTERIAL BLOOD SPECIMEN Performed By: #### A LLBG ####[facility]ATORYCLIA [id number] [address] Methemoglobin (Bld) [Mass fraction] % Normal 0.0-1.5 [facility] Comment on above: Order Comment: Speci men Type: ARTERIAL BLOOD SPECIMEN Performed By: #### A LLBG ####[facility]ATORYCLIA [id number] [address] O2 THERAPY Ventilator Normal [facility] Comment on above: Order Comment: Speci men Type: ARTERIAL BLOOD SPECIMEN Performed By: #### A LLBG ####[facility]ATORYCLIA [id number] [address] Oxygen (Bld) [Partial pressure] 69 mm Hg Low 85-95 [facility] Comment on above: Order Comment: Speci men Type: ARTERIAL BLOOD SPECIMEN Performed By: #### A LLBG ####[facility]ATORYCLIA [id number] [address] Oxygen adjusted to patient's actual temperature (Bld) [Partial pressure] 70.8 mmHg Low 85-95 [facility] Comment on above: Order Comment: Speci men Type: ARTERIAL BLOOD SPECIMEN Performed By: #### A LLBG ####[facility]ATORYCLIA [id number] [address] OXYGEN SATURATION, ARTERIAL 94 % Low 95-98 [facility] Comment on above: Order Comment: Speci men Type: ARTERIAL BLOOD SPECIMEN Performed By: #### A LLBG ####[facility]ATORYCLIA [id number] [address] Oxyhemoglobin (BldA) [Mass fraction] 93 % Low 95-98 [facility] Comment on above: Order Comment: Speci men Type: ARTERIAL BLOOD SPECIMEN Performed By: #### A LLBG ####[facility]ATORYCLIA [id number] [address] pH (Bld) 7.43 [pH] Normal 7.35-7.45 [facility] Comment on above: Order Comment: Speci men Type: ARTERIAL BLOOD SPECIMEN Performed By: #### A LLBG ####[facility]ATORYCLIA [id number] [address] pH adjusted to patient's actual temperature (Bld) 7.43 Normal 7.35-7.45 [facility] Comment on above: Order Comment: Speci men Type: ARTERIAL BLOOD SPECIMEN Performed By: #### A LLBG ####[facility]ATORYCLIA [id number] [address] Potassium [Moles/Vol] 3.1 mmol/L Low 3.5-5.0 [facility] Comment on above: Order Comment: Speci men Type: ARTERIAL BLOOD SPECIMEN Performed By: #### A LLBG ####[facility]ATORYCLIA [id number] [address] OF [facility] Sodium [Moles/Vol] 145 mmol/L High 136-144 [facility] Comment on above: Order Comment: Speci men Type: ARTERIAL BLOOD SPECIMEN Performed By: #### A LLBG ####[facility]ORATORYCLIA [id number] [address] ASPERGILLUS GALACTOMANNAN SE RUMon 06-03-2021 Galactomannan Ag IA Ql Negative Normal NEGAT [facility] Comment on above: Order Comment: Speci [...] is suspected. Performed By: #### A SGALS ####[facility] LABCLIA [id number] [facility] [address] [address] [place] Galactomannan Ag IA Qn <0.50 Normal [facility] Comment on above: Order Comment: Speci men Type: BLOOD SPECIMEN Result Comment: Inde x Values are Interpreted as Follows:Negative specimens <0.50Positive specimens >=0.50 Performed By: #### A SGALS ####[facility] LABCLIA [id number] [facility] [address] [address] [place] Basic metabolic 2000 panelon 06-03-2021 Anion gap [Moles/Vol] 8 mmol/L Low 9-18 [facility] Comment on above: Order Comment: Speci men Type: BLOOD SPECIMEN Performed By: #### 1 9123-9, 2776-05, 32970-5 ####[facility]ORATORYCLIA [id number] [address] STATES OF [facility] Calcium [Mass/Vol] 8.0 mg/dL Low 8.5-10.2 [facility] Comment on above: Order Comment: Speci men Type: BLOOD SPECIMEN Performed By: #### 1 9123-9, 2776-05, 02380-3 ####[facility]ATORYCLIA [id number] [address] [place] Chloride [Moles/Vol] 110 mmol/L High 97-105 [facility] Comment on above: Order Comment: Speci men Type: BLOOD SPECIMEN Performed By: #### 1 9123-9, 27711-04, 15090-3 ####[facility]ATORYCLIA [id number] [place] [address] [place] CO2 [Moles/Vol] 28 mmol/L Normal 22-30 [facility] Comment on above: Order Comment: Speci men Type: BLOOD SPECIMEN Performed By: #### 1 9123-9, 27711-04, 98275-9 ####[facility]ORATORYCLIA [id number] [place] [address] [place] Creatinine [Mass/Vol] 0.75 mg/dL Normal 0.73-1.22 [facility] Comment on above: Order Comment: Speci men Type: BLOOD SPECIMEN Performed By: #### 1 9123-9, 2777-1, 51192-3 ####[facility]ORATORYCLIA [id number] [place] [address] [place] GFR/1.73 sq M.predicted MDRD (S/P/Bld) [Vol rate/Area] mL/min/{1.73_m2} Normal [facility] Comment on above: Order Comment: Spec [...] GFR. Performed By: #### 1 9123-9, 2777-1, 84485-2 ####[facility]NAIA [id number] [place] [address] [place] Glucose [Mass/Vol] 141 mg/dL High 74-99 [facility] Comment on above: Order Comment: Speci men Type: BLOOD SPECIMEN Result Comment: The [place] Diabetes Association (ADA) provides guidance for cutoff [...] Standards of Medical Care in Diabetes 2016, [place] [employer]. Diabetes Care. 2016.39(Suppl 1). Performed By: #### 1 9123-9, 2777-1, 08947-5 ####[facility]ORATORYCLIA [id number] [address] OF [facility] Potassium [Moles/Vol] 3.3 mmol/L Low 3.7-5.1 [facility] Comment on above: Order Comment: Speci men Type: BLOOD SPECIMEN Performed By: #### 1 9123-9, 2777-1, 95885-2 ####[facility]ORATORYCLIA [id number] [address] Sodium [Moles/Vol] 146 mmol/L High 136-144 [facility] Comment on above: Order Comment: Speci men Type: BLOOD SPECIMEN Performed By: #### 1 9123-9, 2777, 81040-1 ####[facility]ATORYCLIA [id number] [address] Urea nitrogen [Mass/Vol] 10 mg/dL Normal 9-24 [facility] Comment on above: Order Comment: Speci men Type: BLOOD SPECIMEN Performed By: #### 1 9123-9, 2777-1, 42995-9 ####[facility]ORATORYCLIA [id number] [address] CASE MANAGEMon 06-03-2021 CASE MANAGEM Normal [facility] CBC panel Auto (Bld)on 06-03 Erythrocyte distribution width (RBC) [Ratio] 15.6 % High 11.5-15.0 [facility] Comment on above: Order Comment: Speci men Type: BLOOD SPECIMEN Performed By: #### 5 8410-2 ####[facility]ATORYCLIA [id number] [address] Hematocrit (Bld) [Volume fraction] 36.9 % Low 39.0-51.0 [facility] Comment on above: Order Comment: Speci men Type: BLOOD SPECIMEN Performed By: #### 5 8410-2 ####[facility]ATORYCLIA [id number] [address] Hemoglobin (Bld) [Mass/Vol] 11.1 g/dL Low 13.0-17.0 [facility] Comment on above: Order Comment: Speci men Type: BLOOD SPECIMEN Performed By: #### 5 8410-2 ####[facility]ATORYCLIA [id number] [address] MCH (RBC) [Entitic mass] 27.0 pg Normal 26.0-34.0 [facility] Comment on above: Order Comment: Speci men Type: BLOOD SPECIMEN Performed By: #### 5 8410-2 ####[facility]ATORYCLIA [id number] [address] MCHC (RBC) [Mass/Vol] 30.1 g/dL Low 30.5-36.0 [facility] Comment on above: Order Comment: Speci men Type: BLOOD SPECIMEN Performed By: #### 5 8410-2 ####[facility]ATORYCLIA [id number] [address] MCV (RBC) [Entitic vol] 89.8 fL Normal 80.0-100.0 [facility] Comment on above: Order Comment: Speci men Type: BLOOD SPECIMEN Performed By: #### 5 8410-2 ####[facility]ATORYCLIA [id number] [address] Nucleated RBC (Bld) [#/Vol] 10*3/uL Normal <0.01 [facility] Comment on above: Order Comment: Speci men Type: BLOOD SPECIMEN Performed By: #### 5 8410-2 ####[facility]ATORYCLIA [id number] [address] Platelet mean volume (Bld) [Entitic vol] 10.5 fL Normal 9.0-12.7 [facility] Comment on above: Order Comment: Speci men Type: BLOOD SPECIMEN Performed By: #### 5 8410-2 ####[facility]ATORYCLIA [id number] [address] Platelets (Bld) [#/Vol] 196 10*3/uL Normal 150-400 [facility] Comment on above: Order Comment: Speci men Type: BLOOD SPECIMEN Performed By: #### 5 8410-2 ####[facility]ATORYCLIA [id number] [address] RBC (Bld) [#/Vol] 4.11 10*6/uL Low 4.20-6.00 [facility] Comment on above: Order Comment: Speci men Type: BLOOD SPECIMEN Performed By: #### 5 8410-2 ####[facility]ATORYCLIA [id number] [address] WBC (Bld) [#/Vol] 8.18 10*3/uL Normal 3.70-11.00 [facility] Comment on above: Order Comment: Speci men Type: BLOOD SPECIMEN Performed By: #### 5 8410-2 ####[facility]ATORYCLIA [id number] [address] CONSULTon 06-03-2021 CONSULT Normal [facility] CONSULT PROGon 06-03-2021 CONSULT PROG Normal [facility] Gas and Carbon monoxide pane l (BldV)on 06-03-2021 Base excess Calc (BldV) [Moles/Vol] 1.4 mmol/L Normal 0-2 [facility] Comment on above: Order Comment: Speci men Type: VENOUS BLOOD SPECIMEN Performed By: #### 2 4344-4 ####[facility]ORATORYCLIA [id number] [address] Body temperature 98.42 [degF] Normal [facility] Comment on above: Order Comment: Speci men Type: VENOUS BLOOD SPECIMEN Performed By: #### 2 4344-4 ####[facility]ATORYCLIA [id number] [address] CALCIUM IONIZED, PH CORRECTED 1.09 mmol/L Normal 1.08-1.30 [facility] Comment on above: Order Comment: Speci men Type: VENOUS BLOOD SPECIMEN Performed By: #### 2 4344-4 ####[facility]ATORYCLIA [id number] [address] Calcium.ionized (BldV) [Mass/Vol] 1.12 mmol/L Normal 1.08-1.30 [facility] Comment on above: Order Comment: Speci men Type: VENOUS BLOOD SPECIMEN Performed By: #### 2 4344-4 ####[facility]ATORYCLIA [id number] [address] Carboxyhemoglobin (BldV) [Mass fraction] 1.7 % Normal 0.0-2.0 [facility] Comment on above: Order Comment: Speci men Type: VENOUS BLOOD SPECIMEN Result Comment: Carb oxyhemoglobin Reference Range for Smokers: 2.0-8.0% Performed By: #### 2 4344-4 ####[facility]ATORYCLIA [id number] [address] CO2 (BldV) [Partial pressure] 50 mm[Hg] Normal 42-55 [facility] Comment on above: Order Comment: Speci men Type: VENOUS BLOOD SPECIMEN Performed By: #### 2 4344-4 ####[facility]ATORYCLIA [id number] [address] CO2 [Moles/Vol] 24.9 mmol/L Low 25-29 [facility] Comment on above: Order Comment: Speci men Type: VENOUS BLOOD SPECIMEN Performed By: #### 2 4344-4 ####[facility]ATORYCLIA [id number] [address] CO2 adjusted to patient's actual temperature (BldV) [Partial pressure] 50 mmHg Normal 42-55 [facility] Comment on above: Order Comment: Speci men Type: VENOUS BLOOD SPECIMEN Performed By: #### 2 4344-4 ####[facility]ATORYCLIA [id number] [address] [place] FIO2 30 % Normal [facility] Comment on above: Order Comment: Speci men Type: VENOUS BLOOD SPECIMEN Performed By: #### 2 4344-4 ####[facility]ATORYCLIA [id number] [address] [place] Glucose [Mass/Vol] 191 mg/dL High 60-105 [facility] Comment on above: Order Comment: Speci men Type: VENOUS BLOOD SPECIMEN Performed By: #### 2 4344-4 ####[facility]ATORYCLIA [id number] [address] [place] HCO3 (Bld) [Moles/Vol] 27.1 mmol/L Normal 24-28 [facility] Comment on above: Order Comment: Speci men Type: VENOUS BLOOD SPECIMEN Performed By: #### 2 4344-4 ####[facility] LABORATORYCLIA [id number] [address] [place] Hematocrit (Bld) [Volume fraction] 36.2 % Low 39.0-51.0 [facility] Comment on above: Order Comment: Speci men Type: VENOUS BLOOD SPECIMEN Performed By: #### 2 4344-4 ####[facility]ORYCLIA [id number] [address] [place] Hemoglobin (Bld) [Mass/Vol] 11.8 g/dL Low 13.0-17.0 [facility] Comment on above: Order Comment: Speci men Type: VENOUS BLOOD SPECIMEN Performed By: #### 2 4344-4 ####[facility]ATORYCLIA [id number] [address] [place] INHALED TIDAL VOLUME (ML) 530 Normal [facility] Comment on above: Order Comment: Speci men Type: VENOUS BLOOD SPECIMEN Performed By: #### 2 4344-4 ####[facility]ATORYCLIA [id number] [place] [address] [place] Methemoglobin (Bld) [Mass fraction] % Normal 0.0-1.5 [facility] Comment on above: Order Comment: Speci men Type: VENOUS BLOOD SPECIMEN Performed By: #### 2 4344-4 ####[facility]ATORYCLIA [id number] [place], [place] [address] [place] [address] [place] O2 THERAPY Ventilator Normal [facility] Comment on above: Order Comment: Speci men Type: VENOUS BLOOD SPECIMEN Performed By: #### 2 4344-4 ####[facility]ATORYCLIA [id number] [place], [place] [address] [place] [address] [place] Oxygen (BldV) [Partial pressure] 69 mm[Hg] High 35-45 [facility] Comment on above: Order Comment: Speci men Type: VENOUS BLOOD SPECIMEN Performed By: #### 2 4344-4 ####[facility]ATORYCLIA [id number] [place], [place] [address] [place] [address] [place] Oxygen adjusted to patient's actual temperature (BldV) [Partial pressure] 68.8 mmHg High 35-45 [facility] Comment on above: Order Comment: Speci men Type: VENOUS BLOOD SPECIMEN Performed By: #### 2 4344-4 ####[facility]ATORYCLIA [id number] [place], [place] [address] [place] [address] [place] Oxygen saturation in Blood 92.4 % High 60-85 [facility] Comment on above: Order Comment: Speci men Type: VENOUS BLOOD SPECIMEN Performed By: #### 2 4344-4 ####[facility]ATORYCLIA [id number] [place], [place] [address] [place] [address] [place] Oxyhemoglobin (BldV) [Mass fraction] 90 % High 60-85 [facility] Comment on above: Order Comment: Speci men Type: VENOUS BLOOD SPECIMEN Performed By: #### 2 4344-4 ####[facility]ATORYCLIA [id number] [place] [address] [place] PEEP/CPAP 8 cmH2O Normal [facility] Comment on above: Order Comment: Speci men Type: VENOUS BLOOD SPECIMEN Performed By: #### 2 4344-4 ####[facility] LABORATORYCLIA [id number] [address] pH (BldV) 7.35 [pH] Normal 7.32-7.42 [facility] Comment on above: Order Comment: Speci men Type: VENOUS BLOOD SPECIMEN Performed By: #### 2 4344-4 ####[facility] LABORATORYCLIA [id number] [address] pH adjusted to patient's actual temperature (BldV) 7.35 Normal 7.32-7.42 [facility] Comment on above: Order Comment: Speci men Type: VENOUS BLOOD SPECIMEN Performed By: #### 2 4344-4 ####[facility]ATORYCLIA [id number] [address] Potassium [Moles/Vol] 3.6 mmol/L Normal 3.5-5.0 [facility] Comment on above: Order Comment: Speci men Type: VENOUS BLOOD SPECIMEN Performed By: #### 2 4344-4 ####[facility]ATORYCLIA [id number] [address] SET VENTILATOR RESPIRATORY RATE (BPM) 18 BPM Normal [facility] Comment on above: Order Comment: Speci men Type: VENOUS BLOOD SPECIMEN Performed By: #### 2 4344-4 ####[facility]ATORYCLIA [id number] [address] Sodium [Moles/Vol] 141 mmol/L Normal 136-144 [facility] Comment on above: Order Comment: Speci men Type: VENOUS BLOOD SPECIMEN Performed By: #### 2 4344-4 ####[facility]ORYCLIA [id number] [address] HIV 1+2 Ab IA Qlon 2 HIV 1 and 2 Ab IA.rapid Nom Normal [facility] Comment on above: Order Comment: Speci men Type: BLOOD SPECIMEN Result Comment: Test not indicated. Performed By: #### 3 1201-7, TOXMG ####[facility]ORATORYCLIA [id number] [address] HIV 1+2 Ab+HIV1 p24 Ag IA Ql Non-Reactive Normal Nonreactive [facility] Comment on above: Order Comment: Speci men Type: BLOOD SPECIMEN Result Comment: [place] Rev. Code 3701.243(E): This information has been [...] diagnoses. Performed By: #### 3 1201-7, TOXMG ####[facility]ORATORYCLIA [id number] [address] HIVINT Normal [facility] Comment on above: Order Comment: Speci men Type: BLOOD SPECIMEN Result Comment: No e vidence of HIV-1 or HIV-2 infection. Should recent infection be suspected, repeat testing may be considered 2-3 weeks after this draw. Performed By: #### 3 1201-7, TOXMG ####[facility]ORATORYCLIA [id number] [address] [place] Magnesium SerPl-mCncon 06-03 Magnesium [Mass/Vol] 1.9 mg/dL Normal 1.7-2.3 [facility] Comment on above: Order Comment: Speci men Type: BLOOD SPECIMEN Performed By: #### 1 9123-9, 2777-1, 80170-9 ####[facility]ORATORYCLIA [id number] [address] [place] NUTRITIONon 06-03-2021 NUTRITION Normal [facility] Phosphate SerPl-mCncon 06-03 Phosphate [Mass/Vol] 1.9 mg/dL Low 2.7-4.8 [facility] Comment on above: Order Comment: Speci men Type: BLOOD SPECIMEN Performed By: #### 1 9123-9, 2777-1, 69110-1 ####[facility]ATORYCLIA [id number] [address] TOXOPLASMOSIS IGM AND IGG AB on 06-03-2021 TOXO IGG QUAL Negative Normal Negative [facility] Comment on above: Order Comment: Speci men Type: BLOOD SPECIMEN Result Comment: No s erological evidence of past exposure to Toxoplasma gondii. Cannot exclude recent infection if the specimen collected within 3-4 weeks after infection.Negative <6.4 IU/mLEquivocal 6.4-9.9 IU/mLPositive >=10.0 IU/mL Performed By: #### 3 1201-7, TOXMG ####[facility]ATORYCLIA [id number] [address] TOXO IGM QUAL Negative Normal Negative [facility] Comment on above: Order Comment: Speci men Type: BLOOD SPECIMEN Result Comment: No s erological evidence of recent exposure to Toxoplasma gondii.Negative <0.9 IndexEquivocal 0.9-0.99 IndexPositive >=1.0 Index Performed By: #### 3 1201-7, TOXMG ####[facility]ORATORYCLIA [id number] [address] [place] US DVT LOWER BILon US DVT LOWER RAINER Normal [facility] XR CHEST 1V FRONTALon 2021 XR CHEST 1V FRONTAL Normal [facility] ARTERIAL BLOOD GASESon 06-02 Base excess Calc (Bld) [Moles/Vol] 2 mmol/L Normal 0-2 [facility] Comment on above: Order Comment: Speci men Type: ARTERIAL BLOOD SPECIMEN Performed By: #### A LLBG ####[facility]ORATORYCLIA [id number] [address] OF [facility] Body temperature 99.32 [degF] Normal [facility] Comment on above: Order Comment: Speci men Type: ARTERIAL BLOOD SPECIMEN Performed By: #### A LLBG ####[facility] LABORATORYCLIA [id number] [place] [address] [place] CALCIUM IONIZED, PH CORRECTED 1.15 mmol/L Normal 1.08-1.30 [facility] Comment on above: Order Comment: Speci men Type: ARTERIAL BLOOD SPECIMEN Performed By: #### A LLBG ####[facility]ATORYCLIA [id number] [address] Calcium.ionized (BldV) [Mass/Vol] 1.13 mmol/L Normal 1.08-1.30 [facility] Comment on above: Order Comment: Speci men Type: ARTERIAL BLOOD SPECIMEN Performed By: #### A LLBG ####[facility]ORATORYCLIA [id number] [address] Carboxyhemoglobin (BldA) [Mass fraction] 1.4 % Normal 0.0-2.0 [facility] Comment on above: Order Comment: Speci men Type: ARTERIAL BLOOD SPECIMEN Result Comment: Carb oxyhemoglobin Reference Range for Smokers: 2.0-8.0% Performed By: #### A LLBG ####[facility] LABORATORYCLIA [id number] [address] CO2 (Bld) [Partial pressure] 39 mm Hg Normal 36-46 [facility] Comment on above: Order Comment: Speci men Type: ARTERIAL BLOOD SPECIMEN Performed By: #### A LLBG ####[facility]ATORYCLIA [id number] [address] CO2 [Moles/Vol] 23.4 mmol/L Normal 22-28 [facility] Comment on above: Order Comment: Speci men Type: ARTERIAL BLOOD SPECIMEN Performed By: #### A LLBG ####[facility]ATORYCLIA [id number] [address] [place] CO2 adjusted to patient's actual temperature (Bld) [Partial pressure] 40 mmHg Normal 36-46 [facility] Comment on above: Order Comment: Speci men Type: ARTERIAL BLOOD SPECIMEN Performed By: #### A LLBG ####[facility]ATORYCLIA [id number] [address] [place] Glucose [Mass/Vol] 156 mg/dL High 60-105 [facility] Comment on above: Order Comment: Speci men Type: ARTERIAL BLOOD SPECIMEN Performed By: #### A LLBG ####[facility]ATORYCLIA [id number] [address] OF [place] HCO3 (Bld) [Moles/Vol] 26 mmol/L Normal 22-26 [facility] Comment on above: Order Comment: Speci men Type: ARTERIAL BLOOD SPECIMEN Performed By: #### A LLBG ####[facility]ORYCLIA [id number] [address] OF [place] Hematocrit (Bld) [Volume fraction] 33.9 % Low 39.0-51.0 [facility] Comment on above: Order Comment: Speci men Type: ARTERIAL BLOOD SPECIMEN Performed By: #### A LLBG ####[facility]ATORYCLIA [id number] [address] OF [facility] Hemoglobin (Bld) [Mass/Vol] 11.0 g/dL Low 13.0-17.0 [facility] Comment on above: Order Comment: Speci men Type: ARTERIAL BLOOD SPECIMEN Performed By: #### A LLBG ####[facility]ATORYCLIA [id number] [address] OF [facility] Methemoglobin (Bld) [Mass fraction] % Normal 0.0-1.5 [facility] Comment on above: Order Comment: Speci men Type: ARTERIAL BLOOD SPECIMEN Performed By: #### A LLBG ####[facility]ORYCLIA [id number] [address] [place] O2 THERAPY Ventilator Normal [facility] Comment on above: Order Comment: Speci men Type: ARTERIAL BLOOD SPECIMEN Performed By: #### A LLBG ####[facility]ORYCLIA [id number] [address] [place] Oxygen (Bld) [Partial pressure] 70 mm Hg Low 85-95 [facility] Comment on above: Order Comment: Speci men Type: ARTERIAL BLOOD SPECIMEN Performed By: #### A LLBG ####[facility]ORYCLIA [id number] [address] Oxygen adjusted to patient's actual temperature (Bld) [Partial pressure] 72.2 mmHg Low 85-95 [facility] Comment on above: Order Comment: Speci men Type: ARTERIAL BLOOD SPECIMEN Performed By: #### A LLBG ####[facility]ORYCLIA [id number] [address] OXYGEN SATURATION, ARTERIAL 96 % Normal 95-98 [facility] Comment on above: Order Comment: Speci men Type: ARTERIAL BLOOD SPECIMEN Performed By: #### A LLBG ####[facility]ATORYCLIA [id number] [address] Oxyhemoglobin (BldA) [Mass fraction] 94 % Low 95-98 [facility] Comment on above: Order Comment: Speci men Type: ARTERIAL BLOOD SPECIMEN Performed By: #### A LLBG ####[facility]ATORYCLIA [id number] [address] OF [facility] pH (Bld) 7.43 [pH] Normal 7.35-7.45 [facility] Comment on above: Order Comment: Speci men Type: ARTERIAL BLOOD SPECIMEN Performed By: #### A LLBG ####[facility]ATORYCLIA [id number] [address] pH adjusted to patient's actual temperature (Bld) 7.42 Normal 7.35-7.45 [facility] Comment on above: Order Comment: Speci men Type: ARTERIAL BLOOD SPECIMEN Performed By: #### A LLBG ####[facility]ORYCLIA [id number] [address] Potassium [Moles/Vol] 2.6 mmol/L Low 3.5-5.0 [facility] Comment on above: Order Comment: Speci men Type: ARTERIAL BLOOD SPECIMEN Performed By: #### A LLBG ####[facility]ORYCLIA [id number] [address] STATES [facility] Sodium [Moles/Vol] 142 mmol/L Normal 136-144 [facility] Comment on above: Order Comment: Speci men Type: ARTERIAL BLOOD SPECIMEN Performed By: #### A LLBG ####[facility]ATORYCLIA [id number] [address] [place] Ammonia Plas-sCncon 06-02-19 22 Ammonia (P) [Moles/Vol] 20 umol/L Normal 16-60 [facility] Comment on above: Order Comment: Speci men Type: BLOOD SPECIMEN Performed By: #### 1 6362-6 ####[facility]ATORYCLIA [id number] [address] OF [facility] Bacteria CSF Culton 06-02-19 22 Bacteria identified Cx Nom (CSF) CULTURE, CSF: No growth 14 days GRAM STAIN: No organisms seen Rare Polymorphonuclear leukocytes Gram stain performed on cytospun specimen. Normal [facility] Comment on above: Performed By: #### 6 06-4 ####[facility]ATORYCLIA [id number] [address] [place] Basic metabolic 2000 panelon 06-02-2021 Anion gap [Moles/Vol] 10 mmol/L Normal 9-18 [facility] Comment on above: Order Comment: Speci men Type: BLOOD SPECIMEN Performed By: #### 2 4321-2, , 2776-05 ####[facility]ATORYCLIA [id number] [address] STATES OF [facility] Calcium [Mass/Vol] 8.1 mg/dL Low 8.5-10.2 [facility] Comment on above: Order Comment: Speci men Type: BLOOD SPECIMEN Performed By: #### 2 4321-2, , 2776-05 ####[facility]ATORYCLIA [id number] [address] STATES OF [facility] Chloride [Moles/Vol] 108 mmol/L High 97-105 [facility] Comment on above: Order Comment: Speci men Type: BLOOD SPECIMEN Performed By: #### 2 4321-2, , 2776-05 ####[facility]ATORYCLIA [id number] [place] [address] [place] CO2 [Moles/Vol] 24 mmol/L Normal 22-30 [facility] Comment on above: Order Comment: Speci men Type: BLOOD SPECIMEN Performed By: #### 2 4321-2, , 2776-05 ####[facility]ATORYCLIA [id number] [place] [address] [place] Creatinine [Mass/Vol] 0.78 mg/dL Normal 0.73-1.22 [facility] Comment on above: Order Comment: Speci men Type: BLOOD SPECIMEN Performed By: #### 2 4321-2, , 2776-05 ####[facility]ATORYCLIA [id number] [address] [place] GFR/1.73 sq M.predicted MDRD (S/P/Bld) [Vol rate/Area] mL/min/{1.73_m2} Normal [facility] Comment on above: Order [...] Performed By: #### 2 4321-2, , 2776-05 ####[facility]ORATORYCLIA [id number] [place] [id number] [place] Glucose [Mass/Vol] 162 mg/dL High 74-99 [facility] Comment on above: Order Comment: Speci men Type: BLOOD SPECIMEN Result Comment: The [place] Diabetes Association (ADA) provides guidance for cutoff [...] Standards of Medical Care in Diabetes 2016, [place] Diabetes Association. Diabetes Care. 2016.39(Suppl 1). Performed By: #### 2 1-2, , 2776-05 ####[facility]ORATORYCLIA [id number] [address] STATES OF [facility] Potassium [Moles/Vol] 2.7 mmol/L Low 3.7-5.1 [facility] Comment on above: Order Comment: Speci men Type: BLOOD SPECIMEN Performed By: #### 2 1-2, , 2776-05 ####[facility]ATORYCLIA [id number] [address] Sodium [Moles/Vol] 142 mmol/L Normal 136-144 [facility] Comment on above: Order Comment: Speci men Type: BLOOD SPECIMEN Performed By: #### 2 1-2, , 2776-05 ####[facility]ATORYCLIA [id number] [address] STATES [facility] Urea nitrogen [Mass/Vol] 12 mg/dL Normal 9-24 [facility] Comment on above: Order Comment: Speci men Type: BLOOD SPECIMEN Performed By: #### 2 1-2, , 2776-05 ####[facility]ATORYCLIA [id number] [address] CBC panel Auto (Bld)on 06-02 Erythrocyte distribution width (RBC) [Ratio] 15.0 % Normal 11.5-15.0 [facility] Comment on above: Order Comment: Speci men Type: BLOOD SPECIMEN Performed By: #### 5 8410-2 ####[facility]ATORYCLIA [id number] [address] Hematocrit (Bld) [Volume fraction] 34.3 % Low 39.0-51.0 [facility] Comment on above: Order Comment: Speci men Type: BLOOD SPECIMEN Performed By: #### 5 8410-2 ####[facility]ATORYCLIA [id number] [address] Hemoglobin (Bld) [Mass/Vol] 10.3 g/dL Low 13.0-17.0 [facility] Comment on above: Order Comment: Speci men Type: BLOOD SPECIMEN Performed By: #### 5 8410-2 ####[facility]ATORYCLIA [id number] [address] MCH (RBC) [Entitic mass] 27.0 pg Normal 26.0-34.0 [facility] Comment on above: Order Comment: Speci men Type: BLOOD SPECIMEN Performed By: #### 5 8410-2 ####[facility]ATORYCLIA [id number] [address] MCHC (RBC) [Mass/Vol] 30.0 g/dL Low 30.5-36.0 [facility] Comment on above: Order Comment: Speci men Type: BLOOD SPECIMEN Performed By: #### 5 8410-2 ####[facility]ATORYCLIA [id number] [address] MCV (RBC) [Entitic vol] 90.0 fL Normal 80.0-100.0 [facility] Comment on above: Order Comment: Speci men Type: BLOOD SPECIMEN Performed By: #### 5 8410-2 ####[facility]ATORYCLIA [id number] [address] Nucleated RBC (Bld) [#/Vol] 10*3/uL Normal <0.01 [facility] Comment on above: Order Comment: Speci men Type: BLOOD SPECIMEN Performed By: #### 5 8410-2 ####[facility]ATORYCLIA [id number] [address] Platelet mean volume (Bld) [Entitic vol] 10.2 fL Normal 9.0-12.7 [facility] Comment on above: Order Comment: Speci men Type: BLOOD SPECIMEN Performed By: #### 5 8410-2 ####[facility]ATORYCLIA [id number] [address] [place] Platelets (Bld) [#/Vol] 194 10*3/uL Normal 150-400 [facility] Comment on above: Order Comment: Speci men Type: BLOOD SPECIMEN Performed By: #### 5 8410-2 ####[facility]ATORYCLIA [id number] [address] OF [facility] RBC (Bld) [#/Vol] 3.81 10*6/uL Low 4.20-6.00 [facility] Comment on above: Order Comment: Speci men Type: BLOOD SPECIMEN Performed By: #### 5 8410-2 ####[facility]ATORYCLIA [id number] [address] WBC (Bld) [#/Vol] 9.22 10*3/uL Normal 3.70-11.00 [facility] Comment on above: Order Comment: Speci men Type: BLOOD SPECIMEN Performed By: #### 5 8410-2 ####[facility]ATORYCLIA [id number] [address] OF [facility] CONSULT PROGon 06-02-2021 CONSULT PROG Normal [facility] CSF MANUAL DIFFon 06-02-2021 DIF TTL, CSF 25 cells counted Normal [facility] Comment on above: Order Comment: Speci men Type: CEREBROSPINAL FLUID Performed By: #### 3 4563-7, [id number], [id number] ####[facility]ATORYCLIA [id number] [address] LYMPH%, CSF 4 % Low 50-90 [facility] Comment on above: Order Comment: Speci men Type: CEREBROSPINAL FLUID Performed By: #### 3 4563-7, [id number], [id number] ####[facility]ATORYCLIA [id number] [address] [place] MACRO%, CSF 4 % High <1 [facility] Comment on above: Order Comment: Speci men Type: CEREBROSPINAL FLUID Performed By: #### 3 4563-7, [id number], [id number] ####[facility]ORYCLIA [id number] [address] [place] MONO%, CSF 20 % Normal 10-50 [facility] Comment on above: Order Comment: Speci men Type: CEREBROSPINAL FLUID Performed By: #### 3 4563-7, [id number], [id number] ####[facility]ATORYCLIA [id number] [address] [place] NEUT%, CSF 72 % High 0-3 [facility] Comment on above: Order Comment: Speci men Type: CEREBROSPINAL FLUID Performed By: #### 3 4563-7, [id number], [id number] ####[facility]ATORYCLIA [id number] [address] CSF PATHOLOGIST INTERP (LAB REFLEX ORDER-NO BILL)on 06-02-2021 CSF STAFF REVIEW Negative [facility] Comment on above: Order Comment: Speci men Type: CEREBROSPINAL FLUID Performed By: #### 3 4563-7, [id number], [id number] ####[facility]ORYCLIA [id number] [address] Pathologist name Reviewed by Amador Stevens MD [facility] Comment on above: Order Comment: Speci men Type: CEREBROSPINAL FLUID Performed By: #### 3 4563-7, [id number], [id number] ####[facility]ATORYCLIA [id number] [address] Cell count panel (CSF)on Clarity (CSF) Clear Normal Clear [facility] Comment on above: Order Comment: Speci men Type: CEREBROSPINAL FLUID Performed By: #### 3 4563-7, [id number], [id number] ####[facility] LABORATORYCLIA [id number] [address] Clarity (Unsp spec) Not Indicated Normal Clear [facility] Comment on above: Order Comment: Speci men Type: CEREBROSPINAL FLUID Performed By: #### 3 4563-7, [id number], [id number] ####[facility]ATORYCLIA [id number] [address] Color (CSF) Colorless Normal Colorless [facility] Comment on above: Order Comment: Speci men Type: CEREBROSPINAL FLUID Performed By: #### 3 4563-7, [id number], [id number] ####[facility]ORYCLIA [id number] [address] Color (Spun CSF) Not Indicated Normal Colorless [facility] Comment on above: Order Comment: Speci men Type: CEREBROSPINAL FLUID Performed By: #### 3 4563-7, [id number], [id number] ####[facility] LABORATORYCLIA [id number] [address] CSF TUBE NUMBER Sterile Container Normal [facility] Comment on above: Order Comment: Speci men Type: CEREBROSPINAL FLUID Performed By: #### 3 4563-7, [id number], [id number] ####[facility]ATORYCLIA [id number] [address] RBC Manual cnt (CSF) [#/Vol] 117 cells/uL High 0-5 [facility] Comment on above: Order Comment: Speci men Type: CEREBROSPINAL FLUID Performed By: #### 3 4563-7, [id number], [id number] ####[facility]ORYCLIA [id number] [address] WBC Manual cnt (CSF) [#/Vol] 1 cells/uL Normal 0-5 [facility] Comment on above: Order Comment: Speci men Type: CEREBROSPINAL FLUID Performed By: #### 3 4563-7, [id number], [id number] ####[facility]ATORYCLIA [id number] [address] OF [facility] Glucose CSF-mCncon 2 Glucose (CSF) [Mass/Vol] 82 mg/dL High 40-70 [facility] Comment on above: Order Comment: Speci men Type: CEREBROSPINAL FLUID Result Comment: Lumb ar CSF glucose values of healthy patients are approximately 60% of the plasma values and must always be compared with a concurrently measured plasma value for adequate clinical interpretation.References: 1. Glucose HK (GLUC3) [package insert V 12.0 [place]]. [employer], [place], [place]. September 2015. 2. Michelle Moore, Michelle Manjarrez (2015). Chapter 7: Glucose and Lactate. FGarfield Rothman.(eds.), Cerebrospinal Fluid in Clinical Neurology. [place]: [employer]. Performed By: #### 2 342-4 ####[facility]ATORYCLIA [id number] [address] HEPATIC FUNCTION PNLon 06-02 Albumin [Mass/Vol] 3.2 g/dL Low 3.9-4.9 [facility] Comment on above: Order Comment: Speci men Type: BLOOD SPECIMEN Performed By: #### [place], [address]-5 ####[facility]ATORYCLIA [id number] [address] ALP [Catalytic activity/Vol] 67 U/L Normal 38-113 [facility] Comment on above: Order Comment: Speci men Type: BLOOD SPECIMEN Performed By: #### [place], [address]-7 ####[facility]ATORYCLIA [id number] [address] ALT With P-5'-P [Catalytic activity/Vol] 16 U/L Normal 10-54 [facility] Comment on above: Order Comment: Speci men Type: BLOOD SPECIMEN Performed By: #### [place], 40059-3 ####[facility]ORYCLIA [id number] [address] AST With P-5'-P [Catalytic activity/Vol] 25 U/L Normal 14-40 [facility] Comment on above: Order Comment: Speci men Type: BLOOD SPECIMEN Performed By: #### [place], [address]-1 ####[facility]ORYCLIA [id number] [address] Bilirubin [Mass/Vol] 0.2 mg/dL Normal 0.2-1.3 [facility] Comment on above: Order Comment: Speci men Type: BLOOD SPECIMEN Performed By: #### [place] FP, ####[facility]ORYCLIA [id number] [address] Bilirubin.conjugated [Mass/Vol] mg/dL Normal <0.2 [facility] Comment on above: Order Comment: Speci men Type: BLOOD SPECIMEN Performed By: #### [place] FP, ####[facility]ATORYCLIA [id number] [address] Protein [Mass/Vol] 5.8 g/dL Low 6.3-8.0 [facility] Comment on above: Order Comment: Speci men Type: BLOOD SPECIMEN Performed By: #### [place], [address]-6 ####[facility]ATORYCLIA [id number] [address] OF [facility] MRI BRAIN WO/W IVCONon 06-02 MRI BRAIN WO/W IVCON Normal [facility] Magnesium SerPl-mCncon 06-02 Magnesium [Mass/Vol] 2.0 mg/dL Normal 1.7-2.3 [facility] Comment on above: Order Comment: Speci men Type: BLOOD SPECIMEN Performed By: #### 2 4321-2, 30996-4, 2777-1 ####[facility]ORYCLIA [id number] [address] OF [facility] NT-proBNP SerPl-mCncon 06-02 Natriuretic peptide.B prohormone N-Terminal [Mass/Vol] 296 pg/mL High <125 [facility] Comment on above: Order Comment: Speci men Type: BLOOD SPECIMEN Performed By: #### [place], [address]-8 ####[facility]ATORYCLIA [id number] [address] OF [facility] POTASSIUM BLDon 06-02-2021 Potassium [Moles/Vol] 3.2 mmol/L Low 3.7-5.1 [facility] Comment on above: Order Comment: Speci men Type: BLOOD SPECIMEN Performed By: #### K 1 ####[facility]ORYCLIA [id number] [address] OF [facility] Phosphate SerPl-mCncon 06-02 Phosphate [Mass/Vol] 2.1 mg/dL Low 2.7-4.8 [facility] Comment on above: Order Comment: Speci men Type: BLOOD SPECIMEN Performed By: #### 2 4321-2, 28278-2, 2777-1 ####[facility]ATORYCLIA [id number] [address] STATES [facility] Vancomycin random [Mass/Vol] on 06-02-2021 Vancomycin [Mass/Vol] 18.8 ug/mL Normal 10.0-20.0 [facility] Comment on above: Order Comment: Speci men Type: BLOOD SPECIMEN Result Comment: Refe rence ranges and high/low indicator flags are provided as general guidelines only. The treating physician must determine appropriate target levels/dosing based on the specific clinical situation. Performed By: #### 4 091-5 ####[facility]ATORYCLIA [id number] [address] [place] ALLIED HEALTHon 06-01-2021 ALLIED HEALTH Normal [facility] ALLIED HEALTH Normal [facility] ALLIED HEALTH Normal [facility] ARTERIAL BLOOD GASESon 06-01 Base excess Calc (Bld) [Moles/Vol] 1 mmol/L Normal 0-2 [facility] Comment on above: Order Comment: Speci men Type: ARTERIAL BLOOD SPECIMEN Performed By: #### A LLBG ####[facility]ATORYCLIA [id number] [address] Body temperature 97.52 [degF] Normal [facility] Comment on above: Order Comment: Speci men Type: ARTERIAL BLOOD SPECIMEN Performed By: #### A LLBG ####[facility]ATORYCLIA [id number] [address] CALCIUM IONIZED, PH CORRECTED 1.13 mmol/L Normal 1.08-1.30 [facility] Comment on above: Order Comment: Speci men Type: ARTERIAL BLOOD SPECIMEN Performed By: #### A LLBG ####[facility]ATORYCLIA [id number] [address] Calcium.ionized (BldV) [Mass/Vol] 1.12 mmol/L Normal 1.08-1.30 [facility] Comment on above: Order Comment: Speci men Type: ARTERIAL BLOOD SPECIMEN Performed By: #### A LLBG ####[facility]ATORYCLIA [id number] [address] Carboxyhemoglobin (BldA) [Mass fraction] 1.6 % Normal 0.0-2.0 [facility] Comment on above: Order Comment: Speci men Type: ARTERIAL BLOOD SPECIMEN Result Comment: Carb oxyhemoglobin Reference Range for Smokers: 2.0-8.0% Performed By: #### A LLBG ####[facility]ORATORYCLIA [id number] [address] CO2 (Bld) [Partial pressure] 41 mm Hg Normal 36-46 [facility] Comment on above: Order Comment: Speci men Type: ARTERIAL BLOOD SPECIMEN Performed By: #### A LLBG ####[facility]ATORYCLIA [id number] [address] CO2 [Moles/Vol] 23.0 mmol/L Normal 22-28 [facility] Comment on above: Order Comment: Speci men Type: ARTERIAL BLOOD SPECIMEN Performed By: #### A LLBG ####[facility]ORYCLIA [id number] [address] CO2 adjusted to patient's actual temperature (Bld) [Partial pressure] 40 mmHg Normal 36-46 [facility] Comment on above: Order Comment: Speci men Type: ARTERIAL BLOOD SPECIMEN Performed By: #### A LLBG ####[facility]ORYCLIA [id number] [address] FIO2 40 % Normal [facility] Comment on above: Order Comment: Speci men Type: ARTERIAL BLOOD SPECIMEN Performed By: #### A LLBG ####[facility]ATORYCLIA [id number] [address] Glucose [Mass/Vol] 127 mg/dL High 60-105 [facility] Comment on above: Order Comment: Speci men Type: ARTERIAL BLOOD SPECIMEN Performed By: #### A LLBG ####[facility]ATORYCLIA [id number] [address] HCO3 (Bld) [Moles/Vol] 25 mmol/L Normal 22-26 [facility] Comment on above: Order Comment: Speci men Type: ARTERIAL BLOOD SPECIMEN Performed By: #### A LLBG ####[facility]ORYCLIA [id number] [address] Hematocrit (Bld) [Volume fraction] 33.7 % Low 39.0-51.0 [facility] Comment on above: Order Comment: Speci men Type: ARTERIAL BLOOD SPECIMEN Performed By: #### A LLBG ####[facility]ATORYCLIA [id number] [address] Hemoglobin (Bld) [Mass/Vol] 10.9 g/dL Low 13.0-17.0 [facility] Comment on above: Order Comment: Speci men Type: ARTERIAL BLOOD SPECIMEN Performed By: #### A LLBG ####[facility]ORYCLIA [id number] [address] INHALED TIDAL VOLUME (ML) 500 Normal [facility] Comment on above: Order Comment: Speci men Type: ARTERIAL BLOOD SPECIMEN Performed By: #### A LLBG ####[facility]ATORYCLIA [id number] [address] INVASIVE VENTILATOR MODE PRVC=Pressure Regulated Volume Control [facility] Comment on above: Order Comment: Speci men Type: ARTERIAL BLOOD SPECIMEN Performed By: #### A LLBG ####[facility]ATORYCLIA [id number] [address] Methemoglobin (Bld) [Mass fraction] % Normal 0.0-1.5 [facility] Comment on above: Order Comment: Speci men Type: ARTERIAL BLOOD SPECIMEN Performed By: #### A LLBG ####[facility]ORYCLIA [id number] [address] O2 THERAPY Ventilator Normal [facility] Comment on above: Order Comment: Speci men Type: ARTERIAL BLOOD SPECIMEN Performed By: #### A LLBG ####[facility]ORYCL[facility] [id number] [address] OF [place] Oxygen (Bld) [Partial pressure] 64 mm Hg Low 85-95 [facility] Comment on above: Order Comment: Speci men Type: ARTERIAL BLOOD SPECIMEN Performed By: #### A LLBG ####[facility]ORYCL[facility] [id number] [address] OF [facility] Oxygen adjusted to patient's actual temperature (Bld) [Partial pressure] 61.8 mmHg Low 85-95 [place] [facility] Comment on above: Order Comment: Speci men Type: ARTERIAL BLOOD SPECIMEN Performed By: #### A LLBG ####[facility]ATORYCLIA [id number] [address] [place] OXYGEN SATURATION, ARTERIAL 94 % Low 95-98 [facility] Comment on above: Order Comment: Speci men Type: ARTERIAL BLOOD SPECIMEN Performed By: #### A LLBG ####[facility]ORYCLIA [id number] [address] Oxyhemoglobin (BldA) [Mass fraction] 92 % Low 95-98 [facility] Comment on above: Order Comment: Speci men Type: ARTERIAL BLOOD SPECIMEN Performed By: #### A LLBG ####[facility]ORYCLIA [id number] [address] PEEP/CPAP 5 cmH2O Normal [facility] Comment on above: Order Comment: Speci men Type: ARTERIAL BLOOD SPECIMEN Performed By: #### A LLBG ####[facility]ORYCLIA [id number] [address] pH (Bld) 7.40 [pH] Normal 7.35-7.45 [facility] Comment on above: Order Comment: Speci men Type: ARTERIAL BLOOD SPECIMEN Performed By: #### A LLBG ####[facility]ATORYCLIA [id number] [address] pH adjusted to patient's actual temperature (Bld) 7.41 Normal 7.35-7.45 [facility] Comment on above: Order Comment: Speci men Type: ARTERIAL BLOOD SPECIMEN Performed By: #### A LLBG ####[facility]ORYCLIA [id number] [address] Potassium [Moles/Vol] 3.1 mmol/L Low 3.5-5.0 [facility] Comment on above: Order Comment: Speci men Type: ARTERIAL BLOOD SPECIMEN Performed By: #### A LLBG ####[facility]ORYCLIA [id number] [address] SET VENTILATOR RESPIRATORY RATE (BPM) 18 BPM Normal [facility] Comment on above: Order Comment: Speci men Type: ARTERIAL BLOOD SPECIMEN Performed By: #### A LLBG ####[facility]ORYCLIA [id number] [address] Sodium [Moles/Vol] 141 mmol/L Normal 136-144 [facility] Comment on above: Order Comment: Speci men Type: ARTERIAL BLOOD SPECIMEN Performed By: #### A LLBG ####[facility]ATORYCLIA [id number] [address] BASE DEFICIT, ARTERIAL -1.0 mmol/L Normal -2-0 [facility] Comment on above: Order Comment: Speci men Type: ARTERIAL BLOOD SPECIMEN Performed By: #### A LLBG ####[facility]ATORYCLIA [id number] [address] Body temperature 98.24 [degF] Normal [facility] Comment on above: Order Comment: Speci men Type: ARTERIAL BLOOD SPECIMEN Performed By: #### A LLBG ####[facility]ATORYCLIA [id number] [address] CALCIUM IONIZED, PH CORRECTED 1.08 mmol/L Normal 1.08-1.30 [facility] Comment on above: Order Comment: Speci men Type: ARTERIAL BLOOD SPECIMEN Performed By: #### A LLBG ####[facility]ATORYCLIA [id number] [address] Calcium.ionized (BldV) [Mass/Vol] 1.15 mmol/L Normal 1.08-1.30 [facility] Comment on above: Order Comment: Speci men Type: ARTERIAL BLOOD SPECIMEN Performed By: #### A LLBG ####[facility]ATORYCLIA [id number] [address] Carboxyhemoglobin (BldA) [Mass fraction] 1.4 % Normal 0.0-2.0 [facility] Comment on above: Order Comment: Speci men Type: ARTERIAL BLOOD SPECIMEN Result Comment: Carb oxyhemoglobin Reference Range for Smokers: 2.0-8.0% Performed By: #### A LLBG ####[facility]ATORYCLIA [id number] [address] CO2 (Bld) [Partial pressure] 59 mm Hg High 36-46 [facility] Comment on above: Order Comment: Speci men Type: ARTERIAL BLOOD SPECIMEN Performed By: #### A LLBG ####[facility]ORYCLIA [id number] [address] CO2 [Moles/Vol] 24.5 mmol/L Normal 22-28 [facility] Comment on above: Order Comment: Speci men Type: ARTERIAL BLOOD SPECIMEN Performed By: #### A LLBG ####[facility]ORYCLIA [id number] [address] CO2 adjusted to patient's actual temperature (Bld) [Partial pressure] 58 mmHg High 36-46 [facility] Comment on above: Order Comment: Speci men Type: ARTERIAL BLOOD SPECIMEN Performed By: #### A LLBG ####[facility]ORYCLIA [id number] [address] FIO2 40 % Normal [facility] Comment on above: Order Comment: Speci men Type: ARTERIAL BLOOD SPECIMEN Performed By: #### A LLBG ####[facility]ORYCLIA [id number] [address] Glucose [Mass/Vol] 128 mg/dL High 60-105 [facility] Comment on above: Order Comment: Speci men Type: ARTERIAL BLOOD SPECIMEN Performed By: #### A LLBG ####[facility]ORYCLIA [id number] [address] OF [facility] HCO3 (Bld) [Moles/Vol] 26 mmol/L Normal 22-26 [facility] Comment on above: Order Comment: Speci men Type: ARTERIAL BLOOD SPECIMEN Performed By: #### A LLBG ####[facility]ORYCLIA [id number] [address] Hematocrit (Bld) [Volume fraction] 35.6 % Low 39.0-51.0 [facility] Comment on above: Order Comment: Speci men Type: ARTERIAL BLOOD SPECIMEN Performed By: #### A LLBG ####[facility]ORYCLIA [id number] [address] [place] Hemoglobin (Bld) [Mass/Vol] 11.5 g/dL Low 13.0-17.0 [facility] Comment on above: Order Comment: Speci men Type: ARTERIAL BLOOD SPECIMEN Performed By: #### A LLBG ####[facility]ORYCLIA [id number] [address] INHALED TIDAL VOLUME (ML) 500 Normal [facility] Comment on above: Order Comment: Speci men Type: ARTERIAL BLOOD SPECIMEN Performed By: #### A LLBG ####[facility]ORYCLIA [id number] [address] INVASIVE VENTILATOR MODE PRVC=Pressure Regulated Volume Control [facility] Comment on above: Order Comment: Speci men Type: ARTERIAL BLOOD SPECIMEN Performed By: #### A LLBG ####[facility]ORYCLIA [id number] [address] Methemoglobin (Bld) [Mass fraction] % Normal 0.0-1.5 [facility] Comment on above: Order Comment: Speci men Type: ARTERIAL BLOOD SPECIMEN Performed By: #### A LLBG ####[facility]ORYCLIA [id number] [address] O2 THERAPY Ventilator Normal [facility] Comment on above: Order Comment: Speci men Type: ARTERIAL BLOOD SPECIMEN Performed By: #### A LLBG ####[facility]ORYCLIA [id number] [address] [place] Oxygen (Bld) [Partial pressure] 88 mm Hg Normal 85-95 [facility] Comment on above: Order Comment: Speci men Type: ARTERIAL BLOOD SPECIMEN Performed By: #### A LLBG ####[facility]ORYCLIA [id number] [address] Oxygen adjusted to patient's actual temperature (Bld) [Partial pressure] 86.5 mmHg Normal 85-95 [facility] Comment on above: Order Comment: Speci men Type: ARTERIAL BLOOD SPECIMEN Performed By: #### A LLBG ####[facility]ORYCLIA [id number] [address] OXYGEN SATURATION, ARTERIAL 95 % Normal 95-98 [facility] Comment on above: Order Comment: Speci men Type: ARTERIAL BLOOD SPECIMEN Performed By: #### A LLBG ####[facility]ORYCLIA [id number] [address] Oxyhemoglobin (BldA) [Mass fraction] 93 % Low 95-98 [facility] Comment on above: Order Comment: Speci men Type: ARTERIAL BLOOD SPECIMEN Performed By: #### A LLBG ####[facility]ORYCLIA [id number] [address] PEEP/CPAP 5 cmH2O Normal [facility] Comment on above: Order Comment: Speci men Type: ARTERIAL BLOOD SPECIMEN Performed By: #### A LLBG ####[facility]ORYCLIA [id number] [address] pH (Bld) 7.27 [pH] Low 7.35-7.45 [facility] Comment on above: Order Comment: Speci men Type: ARTERIAL BLOOD SPECIMEN Performed By: #### A LLBG ####[facility]ORYCLIA [id number] [address] pH adjusted to patient's actual temperature (Bld) 7.28 Low 7.35-7.45 [facility] Comment on above: Order Comment: Speci men Type: ARTERIAL BLOOD SPECIMEN Performed By: #### A LLBG ####[facility]ORYCLIA [id number] [address] Potassium [Moles/Vol] 3.3 mmol/L Low 3.5-5.0 [facility] Comment on above: Order Comment: Speci men Type: ARTERIAL BLOOD SPECIMEN Performed By: #### A LLBG ####[facility]ORYCLIA [id number] [address] SET VENTILATOR RESPIRATORY RATE (BPM) 14 BPM Normal [facility] Comment on above: Order Comment: Speci men Type: ARTERIAL BLOOD SPECIMEN Performed By: #### A LLBG ####[facility]ATORYCLIA [id number] [address] Sodium [Moles/Vol] 141 mmol/L Normal 136-144 [facility] Comment on above: Order Comment: Speci men Type: ARTERIAL BLOOD SPECIMEN Performed By: #### A LLBG ####[facility]ATORYCLIA [id number] [address] Bacteria CSF Culton 06-01-19 22 Bacteria identified Cx Nom (CSF) CULTURE, CSF: No growth 14 days GRAM STAIN: No organisms seen Rare Polymorphonuclear leukocytes Moderate Red Blood Cells Gram stain performed on cytospun specimen. Normal [facility] Comment on above: Performed By: #### 6 06-4 ####[facility]ATORYCLIA [id number] [address] Bacteria Spec Resp Culton Bacteria identified Respiratory culture Nom (Unsp spec) CULTURE, RESPIRATORY: No growth 2 days GRAM STAIN: No organisms seen No Polymorphonuclear Leukocytes Normal [facility] Comment on above: Performed By: #### 3 2355-0 ####[facility]ATORYCLIA [id number] [address] Basic metabolic 2000 panelon 06-01-2021 Anion gap [Moles/Vol] 8 mmol/L Low 9-18 [facility] Comment on above: Order Comment: Speci men Type: BLOOD SPECIMEN Performed By: #### 2 4321-2, , 2776-05 ####[facility]ATORYCLIA [id number] [address] STATES OF [facility] Calcium [Mass/Vol] 7.8 mg/dL Low 8.5-10.2 [facility] Comment on above: Order Comment: Speci men Type: BLOOD SPECIMEN Performed By: #### 2 4321-2, , 2776-05 ####[facility]ORATORYCLIA [id number] [place] [address] [place] Chloride [Moles/Vol] 109 mmol/L High 97-105 [facility] Comment on above: Order Comment: Speci men Type: BLOOD SPECIMEN Performed By: #### 2 4321-2, , 2776-05 ####[facility]ATORYCLIA [id number] [place], [place] [address] [place] [address] [place] CO2 [Moles/Vol] 26 mmol/L Normal 22-30 [facility] Comment on above: Order Comment: Speci men Type: BLOOD SPECIMEN Performed By: #### 2 1-2, , 2776-05 ####[facility]ATORYCLIA [id number] [address] STATES [place] Creatinine [Mass/Vol] 0.82 mg/dL Normal 0.73-1.22 [facility] Comment on above: Order Comment: Speci men Type: BLOOD SPECIMEN Performed By: #### 2 1-2, , 2776-05 ####[facility]ATORYCLIA [id number] [address] [place] GFR/1.73 sq M.predicted MDRD (S/P/Bld) [Vol rate/Area] mL/min/{1.73_m2} Normal [facility] Comment on above: Order [...] Performed By: #### 2 4321-2, , 2776-05 ####[facility]ATORYCLIA [id number] [address] [place] Glucose [Mass/Vol] 105 mg/dL High 74-99 [facility] Comment on above: Order Comment: Speci men Type: BLOOD SPECIMEN Result Comment: The [place] Diabetes Association (ADA) provides guidance for cutoff [...] Standards of Medical Care in Diabetes 2016, [place] [employer] Association. Diabetes Care. 2016.39(Suppl 1). Performed By: #### 2 1-2, , 2776-05 ####[facility]ATORYCLIA [id number] [address] STATES OF [facility] Potassium [Moles/Vol] 3.8 mmol/L Normal 3.7-5.1 [facility] Comment on above: Order Comment: Speci men Type: BLOOD SPECIMEN Performed By: #### 2 1-2, , 2776-05 ####[facility]ATORYCLIA [id number] [address] Sodium [Moles/Vol] 143 mmol/L Normal 136-144 [facility] Comment on above: Order Comment: Speci men Type: BLOOD SPECIMEN Performed By: #### 2 1-2, , 2776-05 ####[facility]ATORYCLIA [id number] [address] STATES [facility] Urea nitrogen [Mass/Vol] 15 mg/dL Normal 9-24 [facility] Comment on above: Order Comment: Speci men Type: BLOOD SPECIMEN Performed By: #### 2 1-2, , 2776-05 ####[facility]ATORYCLIA [id number] [address] CBC panel Auto (Bld)on 06-01 Erythrocyte distribution width (RBC) [Ratio] 15.4 % High 11.5-15.0 [facility] Comment on above: Order Comment: Speci men Type: BLOOD SPECIMEN Performed By: #### 5 8410-2 ####[facility]ATORYCLIA [id number] [address] Hematocrit (Bld) [Volume fraction] 38.4 % Low 39.0-51.0 [facility] Comment on above: Order Comment: Speci men Type: BLOOD SPECIMEN Performed By: #### 5 8410-2 ####[facility]ORYCLIA [id number] [address] Hemoglobin (Bld) [Mass/Vol] 11.1 g/dL Low 13.0-17.0 [facility] Comment on above: Order Comment: Speci men Type: BLOOD SPECIMEN Performed By: #### 5 8410-2 ####[facility]ATORYCLIA [id number] [address] MCH (RBC) [Entitic mass] 26.9 pg Normal 26.0-34.0 [facility] Comment on above: Order Comment: Speci men Type: BLOOD SPECIMEN Performed By: #### 5 8410-2 ####[facility]ATORYCLIA [id number] [address] MCHC (RBC) [Mass/Vol] 28.9 g/dL Low 30.5-36.0 [facility] Comment on above: Order Comment: Speci men Type: BLOOD SPECIMEN Performed By: #### 5 8410-2 ####[facility]ATORYCLIA [id number] [address] MCV (RBC) [Entitic vol] 93.2 fL Normal 80.0-100.0 [facility] Comment on above: Order Comment: Speci men Type: BLOOD SPECIMEN Performed By: #### 5 8410-2 ####[facility]ATORYCLIA [id number] [address] Nucleated RBC (Bld) [#/Vol] 10*3/uL Normal <0.01 [facility] Comment on above: Order Comment: Speci men Type: BLOOD SPECIMEN Performed By: #### 5 8410-2 ####[facility]ATORYCLIA [id number] [address] Platelet mean volume (Bld) [Entitic vol] 10.2 fL Normal 9.0-12.7 [facility] Comment on above: Order Comment: Speci men Type: BLOOD SPECIMEN Performed By: #### 5 8410-2 ####[facility]ATORYCLIA [id number] [address] Platelets (Bld) [#/Vol] 231 10*3/uL Normal 150-400 [facility] Comment on above: Order Comment: Speci men Type: BLOOD SPECIMEN Performed By: #### 5 8410-2 ####[facility]ATORYCLIA [id number] [address] RBC (Bld) [#/Vol] 4.12 10*6/uL Low 4.20-6.00 [facility] Comment on above: Order Comment: Speci men Type: BLOOD SPECIMEN Performed By: #### 5 8410-2 ####[facility]ATORYCLIA [id number] [address] WBC (Bld) [#/Vol] 10.99 10*3/uL Normal 3.70-11.00 [facility] Comment on above: Order Comment: Speci men Type: BLOOD SPECIMEN Performed By: #### 5 8410-2 ####[facility]ATORYCLIA [id number] [address] CONSULT PROGon 06-01-2021 CONSULT PROG Normal [facility] CSF MANUAL DIFFon 06-01-2021 DIF TTL, CSF 100 cells counted Normal [facility] Comment on above: Order Comment: Speci men Type: CEREBROSPINAL FLUID Performed By: #### 3 4563-7, [id number] ####[facility]ORYCLIA [id number] [place], [place] [address] [place] [address] OF [facility] LYMPH%, CSF 11 % Low 50-90 [facility] Comment on above: Order Comment: Speci men Type: CEREBROSPINAL FLUID Performed By: #### 3 4563-7, [id number] ####[facility]ORYCLIA [id number] [address] MONO%, CSF 10 % Normal 10-50 [facility] Comment on above: Order Comment: Speci men Type: CEREBROSPINAL FLUID Performed By: #### 3 4563-7, [id number] ####[facility]ORYCLIA [id number] [address] NEUT%, CSF 79 % High 0-3 [facility] Comment on above: Order Comment: Speci men Type: CEREBROSPINAL FLUID Performed By: #### 3 4563-7, [id number] ####[facility]ORYCLIA [id number] [address] OF [facility] CT BRAIN WO IVCONon 06-01-19 CT BRAIN WO IVCON Normal [facility] Cell count panel (CSF)on Clarity (CSF) Clear Normal Clear [facility] Comment on above: Order Comment: Speci men Type: CEREBROSPINAL FLUID Performed By: #### 3 4563-7, [id number] ####[facility]ORYCLIA [id number] [address] Clarity (Unsp spec) Not Indicated Normal Clear [facility] Comment on above: Order Comment: Speci men Type: CEREBROSPINAL FLUID Performed By: #### 3 4563-7, [id number] ####[facility]ORYCLIA [id number] [address] Color (CSF) Colorless Normal Colorless [facility] Comment on above: Order Comment: Speci men Type: CEREBROSPINAL FLUID Performed By: #### 3 4563-7, [id number] ####[facility]ORYCLIA [id number] [address] Color (Spun CSF) Not Indicated Normal Colorless [facility] Comment on above: Order Comment: Speci men Type: CEREBROSPINAL FLUID Performed By: #### 3 4563-7, [id number] ####[facility]ATORYCLIA [id number] [address] CSF TUBE NUMBER Sterile Container Normal [facility] Comment on above: Order Comment: Speci men Type: CEREBROSPINAL FLUID Performed By: #### 3 4563-7, [id number] ####[facility]ATORYCLIA [id number] [address] RBC Manual cnt (CSF) [#/Vol] 171 cells/uL High 0-5 [facility] Comment on above: Order Comment: Speci men Type: CEREBROSPINAL FLUID Performed By: #### 3 4563-7, [id number] ####[facility]ATORYCLIA [id number] [address] WBC Manual cnt (CSF) [#/Vol] 5 cells/uL Normal 0-5 [facility] Comment on above: Order Comment: Speci men Type: CEREBROSPINAL FLUID Performed By: #### 3 4563-7, [id number] ####[facility]ATORYCLIA [id number] [address] FUNGAL CULTUREon 06-01-2021 FUNGAL CULTURE CULTURE, FUNGAL: No Fungus isolated after 28 days Normal [facility] Comment on above: Performed By: #### F CUL ####[facility]ORATORYCLIA [id number] [address] [place] Glucose CSF-mCncon 2 Glucose (CSF) [Mass/Vol] 78 mg/dL High 40-70 [facility] Comment on above: Order Comment: Speci men Type: CEREBROSPINAL FLUID Result Comment: Lumb ar CSF glucose values of healthy patients are approximately 60% of the plasma values and must always be compared with a concurrently measured plasma value for adequate clinical interpretation.References: 1. Glucose HK (GLUC3) [package insert V 12.0 [place]]. [employer], [place], [place]. September 2015. 2. Michelle Moore, Loki HGarfield (2015). Chapter 7: Glucose and Lactate. Marianela Rothman.(eds.), Cerebrospinal Fluid in Clinical Neurology. [place]: [employer]. Performed By: #### 2 342-4, 2880-3 ####[facility]ORATORYCLIA [id number] [address] [place] HERPES SIMPLEX CSFon 022 HERPES SIMPLEX CSF HSV PCR SPEC SOURCE: Cerebrospinal Fluid HSV-1: Negative for Herpes Simplex Virus Type 1 by PCR HSV-2: Negative for Herpes Simplex Virus Type 2 by PCR Normal [facility] Comment on above: Performed By: #### H [facility] ####[facility] LABCLIA [id number] [address] [id number] [address] [facility] Lactate (Bld) [Moles/Vol]on 06-01-2021 Lactate [Moles/Vol] 0.5 mmol/L Normal 0.5-2.2 [facility] Comment on above: Order Comment: Speci men Type: BLOOD SPECIMEN Performed By: #### 3 2693-4 ####[facility]ORATORYCLIA [id number] [address] MENINGITIS ENCEPHALITIS BIOF IREon 06-01-2021 MENINGITIS ENCEPHALITIS BIOFIRE Negative Normal [facility] Comment on above: Order Comment: Speci men Type: CEREBROSPINAL FLUID Performed By: #### M GEBF ####[facility]AMPUSCLIA [id number] [place] [address] Magnesium SerPl-mCncon 06-01 Magnesium [Mass/Vol] 2.2 mg/dL Normal 1.7-2.3 [facility] Comment on above: Order Comment: Speci men Type: BLOOD SPECIMEN Performed By: #### 2 4321-2, 90589-5, 2777-1 ####[facility]ATORYCLIA [id number] [address] [place] Microorganism Spec Culton Microorganism identified Cx Nom (Unsp spec) CULTURE, AFB: No Acid Fast Bacilli isolated after 42 days AFB STAIN: No acid fast bacilli seen by flurochrome stain Normal [facility] Comment on above: Performed By: #### 1 1475-1 ####[facility]ORATORYCLIA [id number] [address] PROCALCITONIN (LAB)on 2021 Procalcitonin [Mass/Vol] 0.08 ng/mL Normal <0.09 [facility] Comment on above: Order Comment: Speci men Type: BLOOD SPECIMEN Result Comment: For a guided interpretation of test results, please visit the Change in Procalcitonin Calculator, [email or web address]. Performed By: #### P ROCAL ####[facility]ORATORYCLIA [id number] [address] [place] Phosphate SerPl-ncon 06-01 Phosphate [Mass/Vol] 3.5 mg/dL Normal 2.7-4.8 [facility] Comment on above: Order Comment: Speci men Type: BLOOD SPECIMEN Performed By: #### 2 4321-2, 38792-0, 2777-1 ####[facility]ATORYCLIA [id number] [address] [place] Prot CSF-mCncon 06-01-2021 Protein (CSF) [Mass/Vol] 52 mg/dL High 15-45 [facility] Comment on above: Order Comment: Speci men Type: CEREBROSPINAL FLUID Performed By: #### 2 342-4, 2880-3 ####[facility]ATORYCLIA [id number] [address] [place] Vancomycin random [Mass/Vol] on 06-01-2021 Vancomycin [Mass/Vol] 14.6 ug/mL Normal 10.0-20.0 [facility] Comment on above: Order Comment: Speci men Type: BLOOD SPECIMEN Result Comment: Refe rence ranges and high/low indicator flags are provided as general guidelines only. The treating physician must determine appropriate target levels/dosing based on the specific clinical situation. Performed By: #### 4 091-5 ####[facility]ORATORYCLIA [id number] [address] STATES OF [facility] XR CHEST 1V FRONTALon 2021 XR CHEST 1V FRONTAL Normal [facility] XR CHEST 1V FRONTAL Normal [facility] XR NECK SOFT TISSUE 2V AP/LA Ton 06-01-2021 XR NECK SOFT TISSUE 2V AP/LAT Normal [facility] XR SKULL 2V AP/LATon 022 XR SKULL 2V AP/LAT Normal [facility] ALLIED HEALTHon 05-31-2021 ALLIED HEALTH HNO ID: [id number] Author: Christina Lynne, RT(R) Service: Radiology Author Type: Technologist Type: Allied Health Filed: 05/31/2021 5:48 PM Note Text: MRI tomorrow per RN. Normal [facility] ALLIED HEALTH Normal [facility] ALLIED HEALTH Normal [facility] ALLIED HEALTH Normal [facility] ANES POSTPROC EVALon 022 ANES POSTPROC EVAL Normal [facility] ANES PRE-OPon 05-31-2021 ANES PRE-OP Normal [facility] BRIEF OP NOTon 05-31-2021 BRIEF OP NOT Normal [facility] Bacteria Bld Culton 05-31-19 22 Bacteria identified Cx Nom (Bld) CULTURE, BLOOD: No growth 5 days Normal [facility] Comment on above: Performed By: #### 6 00-7 ####[facility]ORATORYCLIA [id number] [address] STATES OF [facility] Bacteria CSF Culton 05-31-19 22 Bacteria identified Cx Nom (CSF) CULTURE, CSF: No growth 14 days GRAM STAIN: No organisms seen Rare Polymorphonuclear leukocytes Rare Red Blood Cells Gram stain performed on cytospun specimen. Normal [facility] Comment on above: Performed By: #### 6 06-4 ####[facility]ORATORYCLIA [id number] [address] [place] Basic metabolic 2000 panelon 05-31-2021 Anion gap [Moles/Vol] 9 mmol/L Normal 9-18 [facility] Comment on above: Order Comment: Speci men Type: BLOOD SPECIMEN Performed By: #### 2 777-1, 06038-6, ####[facility]ORYCLIA [id number] [place], [place] [address] [place] [address] [place] Calcium [Mass/Vol] 8.2 mg/dL Low 8.5-10.2 [facility] Comment on above: Order Comment: Speci men Type: BLOOD SPECIMEN Performed By: #### 2 777-1, , ####[facility]ORYCLIA [id number] [address] [place] Chloride [Moles/Vol] 110 mmol/L High 97-105 [facility] Comment on above: Order Comment: Speci men Type: BLOOD SPECIMEN Performed By: #### 2 777-1, , ####[facility]ORYCLIA [id number] [address] [place] CO2 [Moles/Vol] 27 mmol/L Normal 22-30 [facility] Comment on above: Order Comment: Speci men Type: BLOOD SPECIMEN Performed By: #### 2 777-1, , ####[facility]IA [id number] [address] [place] Creatinine [Mass/Vol] 0.85 mg/dL Normal 0.73-1.22 [facility] Comment on above: Order Comment: Speci men Type: BLOOD SPECIMEN Performed By: #### 2 777-1, 40691-2, ####[facility]CLIA [id number] [address] [place] GFR/1.73 sq M.predicted MDRD (S/P/Bld) [Vol rate/Area] mL/min/{1.73_m2} Normal [facility] Comment on above: Order [...] actual GFR. Performed By: #### 2 777-1, 96920-9, ####[facility]ATORYCLIA [id number] [place] [address] [place] Glucose [Mass/Vol] 111 mg/dL High 74-99 [facility] Comment on above: Order Comment: [facility] Type: BLOOD SPECIMEN Result Comment: The [place] Diabetes Association (ADA) provides guidance for cutoff [...] Standards of Medical Care in Diabetes 2016, [place] [employer]. Diabetes Care. 2016.39(Suppl 1). Performed By: #### 2 777-1, 03915-9, ####[facility]ATORYCLIA [id number] [place] [address] [place] Potassium [Moles/Vol] 3.7 mmol/L Normal 3.7-5.1 [facility] Comment on above: Order Comment: [facility] Type: BLOOD SPECIMEN Performed By: #### 2 777-1, 16392-0, ####[facility]ATORYCLIA [id number] [address] Sodium [Moles/Vol] 146 mmol/L High 136-144 [facility] Comment on above: Order Comment: Speci men Type: BLOOD SPECIMEN Performed By: #### 2 777-1, 26706-2, ####[facility]ATORYCLIA [id number] [address] Urea nitrogen [Mass/Vol] 16 mg/dL Normal 9-24 [facility] Comment on above: Order Comment: Speci men Type: BLOOD SPECIMEN Performed By: #### 2 777-1, 61260-2, ####[facility]ATORYCLIA [id number] [address] OF [facility] CASE MGT INIT ASSESon 2021 CASE MGT INIT ASSES Normal [facility] CBC W Auto Differential pane l (Bld)on 05-31-2021 Basophils (Bld) [#/Vol] 0.04 10*3/uL Normal <0.11 [facility] Comment on above: Order Comment: Speci men Type: BLOOD SPECIMEN Performed By: #### 5 7021-8 ####[facility]ATORYCLIA [id number] [address] Basophils/100 WBC (Bld) 0.5 % Normal [facility] Comment on above: Order Comment: Speci men Type: BLOOD SPECIMEN Performed By: #### 5 7021-8 ####[facility]ATORYCLIA [id number] [address] Differential cell count method Nom (Bld) Auto Normal [facility] Comment on above: Order Comment: Speci men Type: BLOOD SPECIMEN Performed By: #### 5 7021-8 ####[facility]ORYCLIA [id number] [address] OF [facility] Eosinophils (Bld) [#/Vol] 0.27 10*3/uL Normal <0.46 [facility] Comment on above: Order Comment: Speci men Type: BLOOD SPECIMEN Performed By: #### 5 7021-8 ####[facility]ORYCLIA [id number] [address] Eosinophils/100 WBC (Bld) 3.3 % Normal [facility] Comment on above: Order Comment: Speci men Type: BLOOD SPECIMEN Performed By: #### 5 7021-8 ####[facility]ORYCLIA [id number] [address] Erythrocyte distribution width (RBC) [Ratio] 15.4 % High 11.5-15.0 [facility] Comment on above: Order Comment: Speci men Type: BLOOD SPECIMEN Performed By: #### 5 7021-8 ####[facility]ATORYCLIA [id number] [address] Hematocrit (Bld) [Volume fraction] 37.9 % Low 39.0-51.0 [facility] Comment on above: Order Comment: Speci men Type: BLOOD SPECIMEN Performed By: #### 5 7021-8 ####[facility]ATORYCLIA [id number] [address] Hemoglobin (Bld) [Mass/Vol] 11.5 g/dL Low 13.0-17.0 [facility] Comment on above: Order Comment: Speci men Type: BLOOD SPECIMEN Performed By: #### 5 7021-8 ####[facility]ORYCLIA [id number] [address] IMMATURE GRAN % 0.4 % Normal [facility] Comment on above: Order Comment: Speci men Type: BLOOD SPECIMEN Performed By: #### 5 7021-8 ####[facility]ORATORYCLIA [id number] [address] IMMATURE GRAN ABS 0.03 k/uL Normal <0.10 [facility] Comment on above: Order Comment: Speci men Type: BLOOD SPECIMEN Performed By: #### 5 7021-8 ####[facility] LABORATORYCLIA [id number] [place] [address] Lymphocytes (Bld) [#/Vol] 1.90 10*3/uL Normal 1.00-4.00 [facility] Comment on above: Order Comment: Speci men Type: BLOOD SPECIMEN Performed By: #### 5 7021-8 ####[facility]ATORYCLIA [id number] [address] Lymphocytes/100 WBC (Bld) 23.0 % Normal [facility] Comment on above: Order Comment: Speci men Type: BLOOD SPECIMEN Performed By: #### 5 7021-8 ####[facility]ATORYCLIA [id number] [address] MCH (RBC) [Entitic mass] 28.0 pg Normal 26.0-34.0 [facility] Comment on above: Order Comment: Speci men Type: BLOOD SPECIMEN Performed By: #### 5 7021-8 ####[facility]ATORYCLIA [id number] [address] MCHC (RBC) [Mass/Vol] 30.3 g/dL Low 30.5-36.0 [facility] Comment on above: Order Comment: Speci men Type: BLOOD SPECIMEN Performed By: #### 5 7021-8 ####[facility]ATORYCLIA [id number] [address] MCV (RBC) [Entitic vol] 92.4 fL Normal 80.0-100.0 [facility] Comment on above: Order Comment: Speci men Type: BLOOD SPECIMEN Performed By: #### 5 7021-8 ####[facility]ATORYCLIA [id number] [address] Monocytes (Bld) [#/Vol] 0.60 10*3/uL Normal <0.87 [facility] Comment on above: Order Comment: Speci men Type: BLOOD SPECIMEN Performed By: #### 5 7021-8 ####[facility]ATORYCLIA [id number] [address] Monocytes/100 WBC (Bld) 7.3 % Normal [facility] Comment on above: Order Comment: Speci men Type: BLOOD SPECIMEN Performed By: #### 5 7021-8 ####[facility] LABORATORYCLIA [id number] [address] Neutrophils (Bld) [#/Vol] 5.41 10*3/uL Normal 1.45-7.50 [facility] Comment on above: Order Comment: Speci men Type: BLOOD SPECIMEN Performed By: #### 5 7021-8 ####[facility] LABORATORYCLIA [id number] [address] Neutrophils/100 WBC (Bld) 65.5 % Normal [facility] Comment on above: Order Comment: Speci men Type: BLOOD SPECIMEN Performed By: #### 5 7021-8 ####[facility]ORYCLIA [id number] [address] Nucleated RBC (Bld) [#/Vol] 10*3/uL Normal <0.01 [facility] Comment on above: Order Comment: Speci men Type: BLOOD SPECIMEN Performed By: #### 5 7021-8 ####[facility] LABORATORYCLIA [id number] [address] Nucleated RBC/100 WBC (Bld) [Ratio] 0.0 /100 WBC Normal 0.0 [facility] Comment on above: Order Comment: Speci men Type: BLOOD SPECIMEN Performed By: #### 5 7021-8 ####[facility]ORYCLIA [id number] [address] Platelet mean volume (Bld) [Entitic vol] 9.8 fL Normal 9.0-12.7 [facility] Comment on above: Order Comment: Speci men Type: BLOOD SPECIMEN Performed By: #### 5 7021-8 ####[facility]ORYCLIA [id number] [address] Platelets (Bld) [#/Vol] 251 10*3/uL Normal 150-400 [facility] Comment on above: Order Comment: Speci men Type: BLOOD SPECIMEN Performed By: #### 5 7021-8 ####[facility]ORYCLIA [id number] [address] RBC (Bld) [#/Vol] 4.10 10*6/uL Low 4.20-6.00 [facility] Comment on above: Order Comment: Speci men Type: BLOOD SPECIMEN Performed By: #### 5 7021-8 ####[facility]ATORYCLIA [id number] [address] WBC (Bld) [#/Vol] 8.25 10*3/uL Normal 3.70-11.00 [facility] Comment on above: Order Comment: Speci men Type: BLOOD SPECIMEN Performed By: #### 5 7021-8 ####[facility]ATORYCLIA [id number] [address] CONSULTon 05-31-2021 CONSULT Normal [facility] CONSULT Normal [facility] CONSULT Normal [facility] CT BRAIN WO IVCONon 05-31-[address] BRAIN WO IVCON Normal [facility] CT BRAIN WO IVCON Normal [facility] CT CHEST WO IVCONon 05-31-[address] CHEST WO IVCON Normal [facility] Cortis SerPl-mCncon 05-31-19 22 Cortisol [Mass/Vol] 31.0 ug/dL High AM: 5.3-22.5, PM: 3.4-16.8 [facility] Comment on above: Order Comment: Speci men Type: BLOOD SPECIMEN Result Comment: Prov ided reference range is from 6-10 AM sample collection time.Cortisol Reference Range: 6-10 AM = 4.8-19.5 ug/dL, 4-8 PM = 2.5-11.9 ug/dL Performed By: #### 2 143-6, 3016-3 ####[facility]ATORYCLIA [id number] [address] Cryptoc Ag Spec Ql LAon 05-08 Cryptococcus sp Ag LA Ql (Unsp spec) Negative Normal [facility] Comment on above: Performed By: #### 4 3228-6 ####[facility]ATORYCLIA [id number] [address] [place] HISTORY PHYSICALon 2 HISTORY PHYSICAL Normal [facility] Magnesium SerPl-mCncon 05-31 Magnesium [Mass/Vol] 2.2 mg/dL Normal 1.7-2.3 [facility] Comment on above: Order Comment: Speci men Type: BLOOD SPECIMEN Performed By: #### 2 777-1, 25569-8, ####[facility]ATORYCLIA [id number] [address] OF [place] NURSING PROGon 05-31-2021 NURSING PROG Normal [facility] NUTRITIONon 05-31-2021 NUTRITION Normal [facility] OPERATIVE NOon 05-31-2021 OPERATIVE NO Normal [facility] Phosphate SerPl-mCncon 05-31 Phosphate [Mass/Vol] 3.3 mg/dL Normal 2.7-4.8 [facility] Comment on above: Order Comment: Speci men Type: BLOOD SPECIMEN Performed By: #### 2 777-1, 17380-3, ####[facility]ATORYCLIA [id number] [address] STAPH AUREUS PCRon 2 S. aureus and MRSA panel MEGAN+probe (Nose) Normal Negative [facility] Comment on above: Order Comment: Speci men Type: SWAB OF INTERNAL NOSE Result Comment: Nega tive for Staphylococcus aureus by PCR.Negative for MRSA by PCR Performed By: #### S APCR ####[facility]ORATORYCLIA [id number] [address] [place] TSH SerPl-aCncon 05-31-2021 TSH Qn 0.829 m[IU]/L Normal 0.270-4.200 [facility] Comment on above: Order Comment: Speci men Type: BLOOD SPECIMEN Performed By: #### 2 143-6, 3016-3 ####[facility]ATORYCLIA [id number] [place] [address] [place] XR CHEST 1V FRONTALon 2021 XR CHEST 1V FRONTAL Normal [facility] XR CHEST 1V FRONTAL Normal [facility] Blood Cultureon 05-30-2021 Bacteria identified Cx Nom (Bld) Culture Result - No growth 5 days Normal [facility] Comment on above: Performed By: #### C AD #### [facility] [address] [place], [place] [address] [place] [address] Bacteria identified Cx Nom (Bld) Sp. Request/Comment: - 8.2MLS Culture Result - No growth 5 days Normal [facility] Comment on above: Performed By: #### C AD #### [facility] [address] [place] [address] C-Reactive Proteinon 022 C-Reactive Protein 1.7 mg/dL High <0.9 [facility] Comment on above: Performed By: #### C RP ####[facility] [address] [place] [phone] CNDSon 05-30-2021 CNDS HNO ID: [id number] Author: Columba Carroll PA-C Service: Hospital Medicine Author Type: Physician Case Operator Type: Discharge Summary Filed: 05/30/2021 12:49 PM Note Text: ----- Attestation signed by Ayaka Menjivar MD at 06/01/2021 12:53 PM Attending Note I have personally reviewed the PA/PATIENT SERVICES REP note. Agree with above assessment and plan. [...] Team: Attending Provider: Ayaka Menjivar MD Physician Case Operator: Columba Carroll PA-C Consulting: Lilo Mendoza [...] consulted. Neurology suggested empiric abx coverage for COMMERCIAL RELATIONSHIP MANAGER infection Rocephin and Vancomycin was started. Tele-neuro also suggested an MRI brain be obtained prior to LP to check DIRECTOR CARDIAC shunt and decrease risk of herniation in neurosurgery capable facility. Transfer to [facility] requested. Sepsis lactate was 1.3. ABG showed pO2 67.8, placed patient on 2L NC.Follow B1, B12, and RPR pending. Transitions of Care Critical Issues: - patient transferred for [facility] for management of possible COMMERCIAL RELATIONSHIP MANAGER infection and herniation. LABS AND PROCEDURES PENDING [...] intravenously q 1 (more content not included)... [facility] CONSULTon 05-30-2021 CONSULT HNO ID: [id number] Author: Juan Carlos Mckenzie MD Service: Infectious [...] vertebrae with counting from the craniocervical junction. Senior Foreman: OG Transcribe Date/Time: May 29 2021 8:59P Dictated by : CARLOS YOUNGER MD This examination was interpreted and the report reviewed and electronically signed by: CARLOS YOUNGER MD on May 29 2021 9:14PM EST ? CT CERVICAL SPINE WO (more content not included)... Normal [facility] CONSULT HNO ID: [id number] Author: Lilo Mendoza MD Service: Neurology General Author Type: Physician Type: Consults Filed: 05/30/2021 10:56 AM Note Text: [facility] TeleNeurology Consult Note Patient seen using Tel[facility]rology [facility]. Recommendations are placed in the chart. Please review. For questions after hours, when teleneurologist is not available, for [place]: Please Page [phone] for the [facility] from 12pm to 8Am Admitting Provider/Consulted by:Hermes Roca MD Time of Note:05/30/2021 Patient Name:Andrew Sifuentes Admit Date:05/29/2021 Hospital Day:0 CC: altered mental status History of Present Illness: Andrew Sifuentes is a 71 year old unknown handed male with limited information about past medical history including venous insufficiency s/p EVLT, hydrocepalus s/p DIRECTOR CARDIAC shunt in 1987 with multiple revisions and [...] Date , Taking? , Authorizing Provider Soheila Salazar) Debbie Medication Calcium-Cholecalciferol, D3, (CALCIUM 500 + D) [...] Date , Taking? , Authorizing Provider Tosha Haase Medication methylPREDNISolone (MEDROL, JADYN,) 4 mg tablet, [...] Reflexes Right Lef (more content not included)... Normal [facility] CONSULT PROGon 05-30-2021 CONSULT PROG Normal [facility] CONSULT PROG HNO ID: [id number] Author: Shannon Gutierres [facility] Service: Pharmacy Author Type: Pharmacist Type: Consult Progress Note Filed: 05/30/2021 2:35 PM Note Text: PHARMACY VANCOMYCIN DOSING NOTE Patient Name: Andrew Sifuentes Admission Date: 05/29/2021 Date of Consult: 05/30/2021 Time of Consult: 2:32 PM Indication: possible COMMERCIAL RELATIONSHIP MANAGER infection Goal Range: 15-20 mcg/mL RECOMMENDATIONS/PLAN: Pharmacy [...] any questions, please contact inpatient pharmacy at [phone]. Age: [age] year old Allergies: ALLERGIES Allergen [...] Vancomycin Levels: No results found for: IMANI Ortega Bhavik, [facility] Creatinineon 05-30-2021 Creatinine [Mass/Vol] 0.86 mg/dL Normal 0.73-1.22 [facility] Comment on above: Performed By: #### C RET1 ####[facility] Aniphzbnkm1363 [phone] eGFR- Amer. >60 [facility] Comment on above: Performed By: #### C RET1 ####[facility] [address] [place] [phone] eGFR-All Other Races >60 [facility] Comment on above: Result Comment: eGFR [...] at [email or web address]. Performed By: #### C RET1 ####[facility] Nluppmzbcn8072 [phone] Crypto Antigen Deton 022 Crypto Antigen Det Sp. Request/Comment: - SST Test Result - Duplicate request Account Credited [facility] Comment on above: Performed By: #### C AD #### [facility] [address] [place] [address] [facility] [address] [place], [place] [address] Crypto Antigen Det Sp. Request/Comment: - SST Test Result - Cryptococcal antigen detection result: Negative By latex agglutination [facility] Comment on above: Performed By: #### C AD #### [facility] [address] [place] [address] [facility] [address] [place], [place] [address] ED NOTEon 05-30-2021 ED NOTE HNO ID: [id number] Author: Aletha Lopez RN Service: ? Author Type: Registered Nurse Type: ED Notes Filed: 05/29/2021 11:16 PM Note Text: Patient changed for incontinent urine, labs redrawn and sent. Patient aware of plan to be admitted and agrees with plan Normal [facility] HISTORY PHYSICALon HISTORY PHYSICAL Normal [facility] HISTORY PHYSICAL HNO ID: [id number] Author: Hermes Roca MD Service: Hospital Medicine Author Type: Physician Type: HANDP Filed: 05/30/2021 1:03 AM Note Text: DEPARTMENT OF HOSPITAL MEDICINE HISTORY AND PHYSICAL EXAM SERVICE DATE: 05/29/2021 SERVICE TIME: 11:18 PM Primary Care Physician: Mateus Burris MD NIGHT AND WEEKEND COVERAGE: Please page [phone] until 7:30am this morning. After 7:30am please check the treatment team banner and page the appropriate service. Subjective CHIEF COMPLAINT: Fall HPI: This is a 71 year old male with PMH of asthma, venous insufficiency s/p EVLT, obstructive hydrocepalus s/p DIRECTOR CARDIAC shunt in 1987 with multiple revisions and [...] recent imaging (more content not included)... Normal [facility] Magnesium SerPl-mCncon 05-30 Magnesium [Mass/Vol] 2.5 mg/dL High 1.7-2.3 [facility] Comment on above: Order Comment: Speci men Type: BLOOD SPECIMEN Performed By: #### 1 9123-9, 2777-1 ####[facility]ORATORYCLIA [id number] [place] [address] [place] NURSING PROGon 05-30-2021 NURSING PROG HNO ID: [id number] Author: Precious Cervantes RN Service: ? Author Type: Registered Nurse Type: Nursing Progress Note Filed: 05/30/2021 11:26 AM Note Text: Nursing Progress Note Patient Name: Andrew Sifuentes [place] [facility] [id number] Daily Note: 07- Report received from maintenance technician 3rd shift RN, patient resting in bed at this time, call light within reach, bed low and locked. Asked the patient to state his name because maintenance technician 3rd shift RN was unable to complete his [...] This note was completed by: Precious Cervantes [facility] NURSING PROG HNO ID: [id number] Author: Lyubov Day RN Service: ? Author Type: Registered Nurse Type: Nursing Progress Note Filed: 05/30/2021 1:27 AM Note Text: Nursing Progress Note Patient Name: Andrew Sifuentes Patient Location: [id number] 0100: Patient is unresponsive to questions. Patient [...] This note was completed by: Lyubov Day [facility] Phosphate SerPl-mCncon 05-30 Phosphate [Mass/Vol] 3.5 mg/dL Normal 2.7-4.8 [facility] Comment on above: Order Comment: Speci men Type: BLOOD SPECIMEN Performed By: #### 1 9123-9, 2777-1 ####[facility]ORATORYCLIA [id number] [address] OF [facility] Sepsis Lactateon 05-30-2021 Sepsis Lactate 1.5 mmol/L Normal 0.5-2.0 [facility] Comment on above: Performed By: #### S LACT ####[facility] [address] [place], [place] [phone] Syphilis Ttl w/Reflxon 05-30 Syphilis Interp Cannot exclude recen t Treponemal infection if specimen collected within 7 to 10 days after appearance of suspect lesions or 2 to 3 weeks after an exposure. Clinical correlation is required. Normal [facility] Comment on above: Performed By: #### S Jennifer RUCKERB ####[facility] [address] [place], [place] [phone] Syphilis Screen Rslt Non-Reactive Normal Non Reactive [facility] Comment on above: Performed By: #### S ALKA B1WB ####[place] [id number] [place], [place] [phone] THERAPY NTon 05-30-2021 THERAPY NT HNO ID: [id number] Author: Bette Jimenez OTR/L Service: Occupational Therapy Author Type: Occupational Therapist Type: Therapy (PT/OT/Speech/Resp) Filed: 05/30/2021 10:29 AM Note Text: OCCUPATIONAL THERAPY MISSED VISIT SERVICE DATE: 05/30/2021 SERVICE TIME: 1017 to 1019 ROOM: [id number] Attempted Evaluation. Patient not seen due to Not following commands. Per nursing patient was seen by neuro and they are talking about having him transferred to [facility] secondary to shunt concerns. Will re attempt in the event patient continues to be admitted at [place] and is able to participate. SIGNATURE: Bette Jimenez OTR/L PATIENT NAME: Andrew Sifuentes DATE: May 30, 2021 TIME: 10:21 AM [facility] THERAPY NT HNO ID: [id number] Author: Bette Velasquez PT Service: Physical Therapy Author Type: Physical Therapist Type: Therapy (PT/OT/Speech/Resp) Filed: 05/30/2021 8:42 AM Note Text: PHYSICAL THERAPY MISSED VISIT SERVICE DATE: 05/30/2021 SERVICE TIME: 0840 to 0840 ROOM: [place] [address] Attempted Evaluation. Patient not seen due to (pt difficult to awake per RN, very lethargic). Will re-attempt when schedule permits. SIGNATURE: Bette Velasquez PT PATIENT NAME: nAdrew Sifuentes DATE: May 30, 2021 TIME: 8:41 AM [facility] Toxicology Screen,[place] 05-30 Amphetamines, Urine Negative Normal Negative [facility] Comment on above: Result Comment: Cuto ff threshold at 1000 ng/mL. Performed By: #### C AD #### [facility] [address] [place] [phone] [facility] [address] [place] [address] Barbiturates, Urine Negative Normal Negative [facility] Comment on above: Result Comment: Cuto ff threshold at 200 ng/mL. Performed By: #### C AD #### [facility] [address] [place] [address] [facility] [address] [place] [address] Benzodiazepines, Ur Negative Normal Negative [facility] Comment on above: Result Comment: Cuto ff threshold at 200 ng/mL. Performed By: #### C AD #### [facility] [address] [place] [phone] [place] [address] Cannabinoids, Urine Negative Normal Negative [facility] Comment on above: Result Comment: Cuto ff threshold at 50 ng/mL. Performed By: #### C AD #### [facility] [address] [place], [place] [address] [place] [address] Cocaine, Urine Negative Normal Negative [facility] Comment on above: Result Comment: Cuto ff threshold at 300 ng/mL. Performed By: #### C AD #### [facility] [address] [place] [address] Opiates, Urine Negative Normal Negative [facility] Comment on above: Result Comment: Cuto ff threshold at 300 ng/mL. Performed By: #### C AD #### [facility] [address] [place], [place] [id number] [place] [address] Oxycodone, Urine Negative Normal Negative [facility] Comment on above: Result Comment: Cuto ff [...] on the same specimen through Client Services ([phone]) if contacted within 48 hours of initial testing. [1]Substance Abuse and Mental Health Services Administration (2012). Clinical Drug Testing in Primary Care Technical Assistance Publication Series 32. Department of Health and Human Services, [place], p.10. Performed By: #### C AD #### [facility] [address] [place] [phone] Phencyclidine, Urine Negative Normal Negative [facility] [place] Comment on above: Result Comment: Cuto ff threshold at 25 ng/mL. Performed By: #### C AD #### [facility] [address] [place] [phone] Troponin Ton 05-30-2021 Troponin T <0.010 Normal 0.000-0.029 [facility] Comment on above: Performed By: #### T NT ####[facility] [address] [place], [place] [phone] Urinalysison 05-30-2021 Bilirubin, Urine Negative Normal Negative [facility] Comment on above: Performed By: #### C AD #### [facility] [address] [place] [phone] Clarity (U) Slightly Cloudy Critically abnormal Clear [facility] Comment on above: Performed By: #### C AD #### [facility] [address] [place] [phone] Color (U) Yellow Normal Yellow [facility] Comment on above: Performed By: #### C AD #### [facility] [address] [place] [phone] Glucose Ql (U) Negative Normal Negative [facility] Comment on above: Performed By: #### C AD #### [facility] [address] [place] [address] Laboratories [address] [place], [place] [address] Hemoglobin/Blood,Ur Negative Normal Negative [facility] Comment on above: Performed By: #### C AD #### [facility] [address] [place] [address] [facility] [address] [place], [place] [address] Ketones Ql (U) Negative Normal Negative [facility] Comment on above: Performed By: #### C AD #### [facility] [address] [place] [address] [facility] [address] [place] [address] Leukest Negative Normal Negative [facility] Comment on above: Performed By: #### C AD #### [facility] [place] [address] [facility] [address] [place] [address] Nitrite Ql (U) Negative Normal Negative [facility] Comment on above: Performed By: #### C AD #### [facility] [address] [place] [address] [facility] [address] [place], [place] [address] pH (U) 8.5 [pH] High 5.0-8.0 [facility] Comment on above: Performed By: #### C AD #### [facility] [address] [place] [address] [facility] [address] [place], [place] [address] Protein, Urine Negative Normal Negative [facility] Comment on above: Performed By: #### C AD #### [facility] [address] [place] [address] [facility] [address] [place], [place] [address] Specific [place], Ur 1.015 Normal 1.005-1.030 [facility] Comment on above: Performed By: #### C AD #### [facility] [address] [place] [address] [facility] [address] [place], [place] [address] Urobilinogen Qn (U) 0.2 {Marianne'U}/dL Normal 0.2-1.0 [facility] Comment on above: Performed By: #### C AD #### [facility] [address] [place] [address] [place] [address] [place] [address] Vitamin B1, Whole Blon 05-30 Vitamin B1 (TDP), WB 207.1 nmol/L Normal 84.0-213.0 [facility] Comment on above: Result Comment: This assay measures the concentration of thiamine diphosphate (TDP), the primary active form of vitamin B1. Approximately 90 percent of vitamin B1 present in whole blood is TDP. Thiamine and thiamine monophosphate, which comprise the remaining 10 percent, are not measured. This test was developed and its performance characteristics determined by [facility]'s Isrrael Perez [facility] Pathology and Laboratory [facility] [place] ( [facility]). It has not been cleared or approved by the FDA. [facility] is regulated under CLIA as qualified to perform high complexity testing. This test is used for clinical purposes. It should not be regarded as investigational or for research. Performed By: #### S YPHTX, B1WB ####[facility] [place], [place] [phone] Vitamin B12on 05-30-2021 Cobalamin (Vitamin B12) [Mass/Vol] 494 pg/mL Normal 232-1245 [facility] Comment on above: Performed By: #### C AD #### [facility] [address] [place] [address] [facility] [address] [place], [place] [address] ALLIED HEALTHon 05-29-2021 ALLIED HEALTH HNO ID: [id number] Author: RT Kitty(R) Service: Radiology Author Type: [...] RT Kitty(R) May 29, 2021 8:51 PM [facility] ALLIED HEALTH HNO ID: [id number] Author: Markie Fish Service: ? Author Type: 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 Die Type: Allied Health Filed: 05/29/2021 8:39 PM [...] Markie Fish May 29, 2021 8:38 PM [facility] CBC and Differentialon 05-29 Abs Baso 0.05 k/uL Normal <0.11 [facility] Comment on above: Performed By: #### C MP, MG1, CBCDIF ####[facility] [address] [place] [phone] Abs Rusk 0.72 k/uL Normal <0.87 [facility] Comment on above: Performed By: #### C MP, MG1, CBCDIF ####[facility] [address] [place] [phone] Abs Neut 7.86 k/uL High 1.45-7.50 [facility] Comment on above: Performed By: #### C MP, MG1, CBCDIF ####[facility] [address] [place] [address] Absolute nRBC <0.01 Normal <0.01 [facility] Comment on above: Performed By: #### C MP, MG1, CBCDIF ####[facility] [address] [place] [address] Basophils/100 WBC (Bld) 0.5 % [facility] Comment on above: Performed By: #### C MP, MG1, CBCDIF ####[facility] [address] [place] [address] DTYPE Auto Diff [facility] Comment on above: Performed By: #### C MP, MG1, CBCDIF ####[place] [address] Eosinophils (Bld) [#/Vol] 0.10 10*3/uL Normal <0.46 [facility] Comment on above: Performed By: #### C MP, MG1, CBCDIF ####[facility] [address] [place] [address] Eosinophils/100 WBC (Bld) 0.9 % [facility] Comment on above: Performed By: #### C MP, MG1, CBCDIF ####[facility] [address] [place] [address] Erythrocyte distribution width (RBC) [Ratio] 15.5 % High 11.5-15.0 [facility] Comment on above: Performed By: #### C MP, MG1, CBCDIF ####[facility] [address] [place] [address] Hematocrit (Bld) [Volume fraction] 41.6 % Normal 39.0-51.0 [facility] Comment on above: Performed By: #### C MP, MG1, CBCDIF ####[facility] [address] [place] [address] Hemoglobin (Bld) [Mass/Vol] 12.7 g/dL Low 13.0-17.0 [facility] Comment on above: Performed By: #### C MP, MG1, CBCDIF ####[facility] [address] [place], [place] [phone] Lymphocytes (Bld) [#/Vol] 2.04 10*3/uL Normal 1.00-4.00 [facility] Comment on above: Performed By: #### C MP, MG1, CBCDIF ####[facility] I[address] [place], [place] [phone] Lymphocytes/100 WBC (Bld) 18.9 % Normal [facility] Comment on above: Performed By: #### C MP, MG1, CBCDIF ####[facility] [address] [place] [address] MCH 27.3 pG Normal 26.0-34.0 [facility] Comment on above: Performed By: #### C MP, MG1, CBCDIF ####[facility] [address] [place] [address] MCHC (RBC) [Mass/Vol] 30.5 g/dL Normal 30.5-36.0 [facility] Comment on above: Performed By: #### C MP, MG1, CBCDIF ####[facility] [address] [place] [address] MCV (RBC) [Entitic vol] 89.5 fL Normal 80.0-100.0 [facility] Comment on above: Performed By: #### C MP, MG1, CBCDIF ####[facility] [address] [place], [place] [phone] Monocytes/100 WBC (Bld) 6.7 % Normal [facility] Comment on above: Performed By: #### C MP, MG1, CBCDIF ####[facility] K[address] [place], [place] [phone] Neutrophils/100 WBC (Bld) 73.0 % Normal [facility] Comment on above: Performed By: #### C MP, MG1, CBCDIF ####[facility] [address] [place], [place] [phone] NRBCs 0.0 /100 WBC Normal 0 [facility] Comment on above: Performed By: #### C MP, MG1, CBCDIF ####[facility] Gclbymzjpm7304 [phone] Platelet mean volume (Bld) [Entitic vol] 10.1 fL Normal 9.0-12.7 [facility] Comment on above: Performed By: #### C MP, MG1, CBCDIF ####[facility] Fnwcnaszmz0836 [phone] Platelets (Bld) [#/Vol] 291 10*3/uL Normal 150-400 [facility] Comment on above: Performed By: #### C MP, MG1, CBCDIF ####[facility] Nbduqipvwl2735 [phone] RBC (Bld) [#/Vol] 4.65 10*6/uL Normal 4.20-6.00 [facility] Comment on above: Performed By: #### C MP, MG1, CBCDIF ####[facility] Wxnziffvdb3824 [phone] WBC (Bld) [#/Vol] 10.77 10*3/uL Normal 3.70-11.00 [facility] [place] Comment on above: Performed By: #### C MP, MG1, CBCDIF ####[facility] [address] [place] [phone] CT BRAIN WO IVCONon 05-29-19 CT BRAIN WO IVCON * * *Final Report* * * DATE OF EXAM: May 29 2021 8:42PM [facility] [place] 0504 - CT BRAIN WO IVCON / PROCEDURE REASON: Head trauma, headache * * * * Physician Interpretation * * * * EXAMINATION: CT CERVICAL SPINE WO IVCON, CT BRAIN WO IVCON CLINICAL HISTORY: C-spine trauma, NEXUS/CCR positive (accession [id number]), Head trauma, headache (accession [id number]) TECHNIQUE: Serial axial unenhanced images were obtained from the vertex to the foramen magnum. Spiral, high resolution axial unenhanced images were obtained from the skull base to the cervicothoracic junction with sagittal and coronal planar reconstructions. Dose-Length Product (DLP): 2132 mGy*cm. CT Dose Reduction Employed: Automated exposure control (AEC) COMPARISON: 08/13/[address] RESULT: BRAIN: Post-operative change: Right parietal approach DIRECTOR CARDIAC shunt is intact. The intracranial fragments of [...] vertebrae with counting from the craniocervical junction. Senior Foreman: [facility] Transcribe Date/Time: May 29 2021 8:59P Dictated by : CARLOS YOUNGER MD This examination was interpreted and the report reviewed and electronically signed by: CARLOS YOUNGER MD on May 29 2021 9:14PM EST [id number] [facility] CT CERVICAL SPINE WO IVCONon 05-29-2021 CT CERVICAL SPINE WO IVCON * * *Final Report* * * DATE OF EXAM: May 29 2021 8:42PM [facility] [place] 0505 - CT CERVICAL SPINE WO IVCON / PROCEDURE REASON: C-spine trauma, NEXUS/CCR positive * * * * Physician Interpretation * * * * EXAMINATION: CT CERVICAL SPINE WO IVCON, CT BRAIN WO IVCON CLINICAL HISTORY: C-spine trauma, NEXUS/CCR positive (accession [id number]), Head trauma, headache (accession [id number]) TECHNIQUE: Serial axial unenhanced images were obtained from the vertex to the foramen magnum. Spiral, high resolution axial unenhanced images were obtained from the skull base to the cervicothoracic junction with sagittal and coronal planar reconstructions. Dose-Length Product (DLP): 2132 mGy*cm. CT Dose Reduction Employed: Automated exposure control (AEC) COMPARISON: 08/13/[address] RESULT: BRAIN: Post-operative change: Right parietal approach DIRECTOR CARDIAC shunt is intact. The intracranial fragments of [...] vertebrae with counting from the craniocervical junction. Senior Foreman: [facility] Transcribe Date/Time: May 29 2021 8:59P Dictated by : CARLOS YOUNGER MD This examination was interpreted and the report reviewed and electronically signed by: CARLOS YOUNGER MD on May 29 2021 9:14PM EST [id number] Normal [facility] Cepheid Bill only (EXCFR)on 05-29-2021 Cepheid Bill only (EXCFR) Billed for services performed Normal [facility] Comment on above: Performed By: #### C AD #### [facility] [address] [email or web address] [address] [place], [place] [address] Comp Metabolic Panelon 05-29 Albumin [Mass/Vol] 4.1 g/dL Normal 3.9-4.9 [facility] Comment on above: Performed By: #### C MP ####[facility] [address] [place] [address] ALP [Catalytic activity/Vol] 86 U/L Normal 38-113 [facility] Comment on above: Performed By: #### C MP ####[facility] [address] [place] [address] ALT [Catalytic activity/Vol] 15 U/L Normal 10-54 [facility] Comment on above: Performed By: #### C MP ####[facility] [address] [place] [address] Anion gap [Moles/Vol] 9 mmol/L Normal 9-18 [facility] Comment on above: Performed By: #### C MP ####[facility] [address] [place] [address] AST [Catalytic activity/Vol] 22 U/L Normal 14-40 [facility] Comment on above: Performed By: #### C MP ####[facility] [address] [place] [address] Bilirubin [Mass/Vol] 0.2 mg/dL Normal 0.2-1.3 [facility] [place] Comment on above: Performed By: #### C MP ####[facility] [address] [place] [address] Calcium [Mass/Vol] 9.1 mg/dL Normal 8.5-10.2 [facility] Comment on above: Performed By: #### C MP ####[facility] [address] [place] [address] Chloride [Moles/Vol] 103 mmol/L Normal 97-105 [facility] [place] Comment on above: Performed By: #### C MP ####[facility] [address] [place], [place] [phone] CO2 [Moles/Vol] 29 mmol/L Normal 22-30 [facility] Comment on above: Performed By: #### C MP ####[facility] [address] [place] [address] Creatinine [Mass/Vol] 0.89 mg/dL Normal 0.73-1.22 [facility] Comment on above: Performed By: #### C MP ####[facility] [address] [place] [address] eGFR- Amer. >60 Normal [facility] Comment on above: Performed By: #### C MP ####[facility] [address]rzcluvh6495 [place] [address] eGFR-All Other Races >60 Normal [facility] [place] Comment on above: Result Comment: eGFR (Estimated [...] at [email or web address]. Performed By: #### C MP ####[facility] [address]xi[address] [place] [address] Glucose [Mass/Vol] 120 mg/dL High 74-99 [facility] Comment on above: Result Comment: The [place] Diabetes Association (ADA) provides guidance for cutoff [...] Standards of Medical Care in Diabetes 2016, [place] [employer]. Diabetes Care. 2016.39(Suppl 1). Performed By: #### C MP ####[facility] [address]bp3[address] [place] [address] Potassium [Moles/Vol] 4.2 mmol/L Normal 3.7-5.1 [facility] Comment on above: Performed By: #### C MP ####[facility] [address] [place] [address] Protein [Mass/Vol] 7.1 g/dL Normal 6.3-8.0 [facility] Comment on above: Performed By: #### C MP ####[facility] [address] [place] [address] Sodium [Moles/Vol] 141 mmol/L Normal 136-144 [facility] Comment on above: Performed By: #### C MP ####[facility] [address] [place] [address] Urea nitrogen [Mass/Vol] 11 mg/dL Normal 9-24 [facility] Comment on above: Performed By: #### C MP ####[facility] [address] [place] [address] Albumin [Mass/Vol] 4.1 g/dL Normal 3.9-4.9 [facility] Comment on above: Performed By: #### C MP, MG1, CBCDIF ####[facility] [address] [place] [address] ALP [Catalytic activity/Vol] 86 U/L Normal 38-113 [facility] Comment on above: Performed By: #### C MP, MG1, CBCDIF ####[facility] [address] [place] [address] ALT Unable to assay due to interference from hemolysis. Suggest reorder as clinically indicated. Normal 10-54 [facility] Comment on above: Result Comment: Call ed to LISA Rea at [phone] on 05.29.21 by Sabino Performed By: #### C MP, MG1, CBCDIF ####[facility] [address] [place] [address] Anion gap [Moles/Vol] 12 mmol/L Normal 9-18 [facility] Comment on above: Performed By: #### C MP, MG1, CBCDIF ####[facility] I[address]ucrarjo8923 [place] [address] AST Unable to assay due to interference from hemolysis. Suggest reorder as clinically indicated. Normal 14-40 [facility] Comment on above: Result Comment: Call ed to ED Álvaro at [phone] on 05.29.21 by Sabino Performed By: #### C MP, MG1, CBCDIF ####[facility] [address]60 [place] [address] Bilirubin [Mass/Vol] 0.2 mg/dL Normal 0.2-1.3 [facility] [place] Comment on above: Performed By: #### C MP, MG1, CBCDIF ####[facility] [address] [place] [address] Calcium [Mass/Vol] 9.0 mg/dL Normal 8.5-10.2 [facility] Comment on above: Performed By: #### C MP, MG1, CBCDIF ####[facility] S[address]ecwaobt0053 [place] [address] Chloride [Moles/Vol] 102 mmol/L Normal 97-105 [facility] [place] Comment on above: Performed By: #### C MP, MG1, CBCDIF ####[facility] [address] [place] [address] CO2 [Moles/Vol] 27 mmol/L Normal 22-30 [facility] Comment on above: Performed By: #### C MP, MG1, CBCDIF ####[facility] Tbhlscvguw4066 [place] [address] Creatinine [Mass/Vol] 0.75 mg/dL Normal 0.73-1.22 [facility] Comment on above: Performed By: #### C MP, MG1, CBCDIF ####[facility] [address]uv[address]33 [place] [address] eGFR- Amer. >60 Normal [facility] Comment on above: Performed By: #### C MP, MG1, CBCDIF ####[facility] Gre[address]ixitz[address]496 [place] [address] eGFR-All Other Races >60 Normal [facility] [place] Comment on above: Result Comment: eGFR (Estimated [...] Performed By: #### C MP, MG1, CBCDIF ####[facility] Ar[address]j6774 [place] [phone] Glucose [Mass/Vol] 112 mg/dL High 74-99 [facility] Comment on above: Result Comment: The [place] Diabetes Association (ADA) provides guidance for cutoff [...] Standards of Medical Care in Diabetes 2016, [place] Diabetes [employer]. Diabetes Care. 2016.39(Suppl 1). Performed By: #### C MP, MG1, CBCDIF ####[facility] [address]usp2081 [place] [phone] Potassium Unable to assay due to interference from hemolysis. Suggest reorder as clinically indicated. Normal 3.7-5.1 [facility] Comment on above: Result Comment: Call ed to LISA Rea at [phone] on 05.29.21 by Sabino Performed By: #### C MP, MG1, CBCDIF ####[facility] Kk[address]ryy2576 [place] [phone] Protein [Mass/Vol] 7.3 g/dL Normal 6.3-8.0 [facility] Comment on above: Performed By: #### C MP, MG1, CBCDIF ####[facility] [address]ro9828 [place] [phone] Sodium [Moles/Vol] 141 mmol/L Normal 136-144 [facility] Comment on above: Performed By: #### C MP, MG1, CBCDIF ####[facility] L[address]kyuoacbr5995 [place] [phone] Urea nitrogen [Mass/Vol] 11 mg/dL Normal 9-24 [facility] Comment on above: Performed By: #### C MP, MG1, CBCDIF ####[facility] [address] [place] [phone] ED PROV NOTEon 05-29-2021 ED PROV NOTE HNO ID: [id number] Author: Shanell Slaughter MD Service: ? Author [...] No radiographic evidence of acute cardiopulmonary disease. Senior Foreman: [facility] Transcribe Date/Time: May 29 2021 8:53P [...] vertebrae with counting from the craniocervical junction. Senior Foreman: [facility] Transcribe Date/Time: May 29 2021 8:59P [...] vertebrae with counting from the craniocervical junction. Senior Foreman: [facility] Transcribe Date/Time: May 29 (more content not included)... Normal [facility] ED PROV NOTE HNO ID: [id number] Author: Flavio Pandya DO Service: Emergency Medicine Author Type: Physician Type: ED Provider Notes Filed: 05/29/2021 7:10 PM Note Text: ED Provider Note Patient Name: Andrew Sifuentes SERVICE DATE: 05/29/21 History Patient presents with: Fall 71 yo male non-smoker, hx of HTN, 2 DIRECTOR CARDIAC shunts, PE (not on anticoagulation now), asthma, [...] with assistance from bedside clinician. Provider Location: [facility] Patient Location: Outpatient [facility] Physical [...] / Clinical Impression Clinical Impressions as of 05/29/211905 General weakness Fall, initial encounter MDM / [...] Flavio Pandya, DO Flavio Pandya, 05/29/211909 Normal [facility] EXCOVD, Flu A/B, RSV (On int erfaces 1102,1120)on 05-29-2021 Influenza A PCR Negative [facility] Comment on above: Performed By: #### C AD #### [facility] [address] [place] [address] [facility] [address] [place], [place] [address] Influenza B PCR Negative Normal [facility] Comment on above: Performed By: #### C AD #### [facility] [address] [place] [id number] [place] [address] RSV PCR Negative Normal [facility] Comment on above: Result Comment: This test has been authorized by [facility] under an Emergency Use Authorization (EUA). Performed By: #### C AD #### [facility] [address] [place] [address] SARS-CoV-2 (COVID-19) RNA MEGAN+probe Ql (Unsp spec) UPPER RESPIRATORY TRACT SWAB Normal [facility] Comment on above: Performed By: #### C AD #### [facility] [address] [place] [address] SARS-CoV-2 (COVID-19) RNA MEGAN+probe Ql (Unsp spec) Negative for COVID19 (SARS CoV2) by RT-PCR or equivalent method. Normal Negative for COVID19 (SARS CoV2) by RT-PCR or equivalent method. [facility] Comment on above: Result Comment: This test has been authorized by FDA under an Emergency Use Authorization (EUA). Performed By: #### C AD #### [facility] [address] [place] [phone] Magnesiumon 05-29-2021 Magnesium [Mass/Vol] 2.2 mg/dL Normal 1.7-2.3 [facility] Comment on above: Performed By: #### C MP, MG1, CBCDIF ####[facility] [id number] [place], [place] [id number] NT Pro BNPon 05-29-2021 PRO B Natr Peptide 303 pg/mL High <125 [facility] Comment on above: Performed By: #### N TBNP ####[facility] [id number] [phone] Troponin Ton 05-29-2021 Troponin T <0.010 Normal 0.000-0.029 [facility] Comment on above: Performed By: #### T NT ####[facility] [id number] [place] [phone] Troponin T Unable to assay due to interference from hemolysis. Suggest reorder as clinically indicated. Normal 0.000-0.029 [facility] Comment on above: Result Comment: Call ed to ED Álvaro at 2129 on 05.29.21 by Sabino Performed By: #### T NT ####[facility] [id number] [place] [phone] XR CHEST 1V FRONTAL PORTon 0 05-29-2021 [...] No radiographic evidence of acute cardiopulmonary disease. Senior Foreman: PSCB Transcribe Date/Time: May 29 2021 8:53P Dictated by : ROLY BANGURA MD This examination was interpreted and the report reviewed and electronically signed by: ROLY BANGURA MD on May 29 2021 8:54PM EST [id number] Normal [facility] COMPREHENSIVE PANELon 2020 Albumin [Mass/Vol] 3.9 g/dL Normal 3.4 - 5.0 [facility] Comment on above: Order Comment: PATIE NT FASTING Performed By: #### C MP #### [facility] [address] [place] [address] ALP [Catalytic activity/Vol] 71 U/L Normal 33 - 136 [facility] Comment on above: Order Comment: PATIE NT FASTING Performed By: #### C MP #### [facility] [address] [place] [address] ALT [Catalytic activity/Vol] 19 U/L Normal 10 - 52 [facility] Comment on above: Order Comment: PATIE NT FASTING Result Comment: Nasima ents treated with Sulfasalazine may generate falsely decreased results for ALT. Performed By: #### C MP #### [facility] [address] [place] [address] Anion gap [Moles/Vol] 13 mmol/L Normal 10 - 20 [facility] Comment on above: Order Comment: PATIE NT FASTING Performed By: #### C MP #### [facility] [address] [place] [address] AST [Catalytic activity/Vol] 20 U/L Normal 9 - 39 [facility] Comment on above: Order Comment: PATIE NT FASTING Performed By: #### C MP #### [facility] [address] [place] [address] Bilirubin [Mass/Vol] 0.6 mg/dL Normal 0.0 - 1.2 [facility] Comment on above: Order Comment: PATIE NT FASTING Performed By: #### C MP #### [facility] [address] [place] [address] Calcium [Mass/Vol] 9.0 mg/dL Normal 8.6 - 10.6 [facility] Comment on above: Order Comment: PATIE NT FASTING Performed By: #### C MP #### [facility] [address] [place] [address] Chloride [Moles/Vol] 103 mmol/L Normal 98 - 107 [facility] Comment on above: Order Comment: PATIE NT FASTING Performed By: #### C MP #### [facility] [address] [place] [address] Creatinine [Mass/Vol] 0.94 mg/dL Normal 0.50 - 1.30 [facility] Comment on above: Order Comment: PATIE NT FASTING Performed By: #### C MP #### [facility] [address] [place] [address] GFR- AM. >60 Normal >60 [facility] Comment on above: Order Comment: PATIE NT FASTING Result Comment: CALC ULATIONS OF ESTIMATED GFR ARE PERFORMED USING THE MDRD STUDY EQUATION FOR THE IDMS-TRACEABLE CREATININE METHODS. CLIN CHEM 2007;53:766-72 Performed By: #### C MP #### [facility] [address] [place] [address] GFR-NON AM. >60 Normal >60 [facility] Comment on above: Order Comment: PATIE NT FASTING Performed By: #### C MP #### [facility] [address] [place] [address] Glucose [Mass/Vol] 85 mg/dL Normal 74 - 99 [facility] Comment on above: Order Comment: PATIE NT FASTING Performed By: #### C MP #### [facility] [address] [place] [address] HCO3 (Bld) [Moles/Vol] 30 mmol/L Normal 21 - 32 [facility] Comment on above: Order Comment: PATIE NT FASTING Performed By: #### C MP #### [facility] [address] [place] [address] Potassium [Moles/Vol] 4.1 mmol/L Normal 3.5 - 5.3 [facility] Comment on above: Order Comment: PATIE NT FASTING Performed By: #### C MP #### [facility] [address] [place] [address] Protein [Mass/Vol] 6.6 g/dL Normal 6.4 - 8.2 [facility] Comment on above: Order Comment: PATIE NT FASTING Performed By: #### C MP #### [facility] [address] [place] [address] Sodium [Moles/Vol] 142 mmol/L Normal 136 - 145 [facility] Comment on above: Order Comment: PATIE NT FASTING Performed By: #### C MP #### [facility] [address] [place] [address] Urea nitrogen [Mass/Vol] 14 mg/dL Normal 6 - 23 [facility] Comment on above: Order Comment: PATIE NT FASTING Performed By: #### C MP #### [facility] [address] [place] [address] LIPID PANEL (CORONARY RISK 2 )on 09-03-2020 Cholesterol [Mass/Vol] 210 mg/dL High 0 - 199 [facility] Comment on above: Order Comment: [...] Performed By: #### L IPID #### [facility] [address] [place] [address] Cholesterol in HDL [Mass/Vol] 50.1 mg/dL Normal [facility] Comment on above: Order Comment: PATIE NT FASTING Result Comment: . AGE VERY LOW LOW NORMAL HIGH 0-19 Y < 35 < 40 40-45 ---- 20-24 Y ---- < 40 >45 ---- >24 Y ---- < 40 40-60 >60 . Performed By: #### L IPID #### [facility] [address] [place] [address] Cholesterol in LDL [Mass/Vol] 130 mg/dL High 0 - 99 [facility] Comment on above: Order Comment: PATIE NT FASTING Result Comment: . NEAR BORD AGE DESIRABLE OPTIMAL HIGH HIGH VERY HIGH 0-19 Y 0 - 109 --- 110-129 >/= 130 ---- 20-24 Y 0 - 119 --- 120-159 >/= 160 ---- >24 Y 0 - 99 100-129 130-159 160-189 >/=190 . Performed By: #### L IPID #### [facility] [address] [place] [address] Cholesterol in VLDL [Mass/Vol] 30 mg/dL Normal 0 - 40 [facility] Comment on above: Order Comment: PATIE NT FASTING Performed By: #### L IPID #### [facility] [address] [place] [address] Cholesterol.total/Chol esterol in HDL [Mass ratio] 4.2 {ratio} Normal [facility] Comment on above: Order Comment: PATIE NT FASTING Result Comment: REF VALUES DESIRABLE < 3.4 HIGH RISK > 5.0 Performed By: #### L IPID #### [facility] [address] [place] [address] Triglyceride [Mass/Vol] 152 mg/dL High 0 - 149 [facility] Comment on above: Order Comment: [...] dosing. Performed By: #### L IPID #### [facility] [address] [place] [address] PROSTATE SPEC.AG,SCREENon PROSTATE SPEC.AG,SCREEN 0.37 ng/mL Normal 0.00 - 4.00 [facility] Comment on above: Order Comment: PATIE NT FASTING Result Comment: The FDA requires that the method used for PSA assay be reported to the physician. Values obtained with different assay methods must not be used interchangeably. This test was performed at [facility] using the Siemens InventalatorllDataArt PSA method, which is a sandwich immunoassay using chemiluminescence for quantitation. The assay is approved for measurement of prostate-specific antigen (PSA) in serum and may be used in conjunction with a digital rectal examination in men 50 years and older as an aid in detection of prostate cancer. 5-Iimfr-droagdycc inhibitors (e.g. Proscar, Finasteride, Avodart, Dutasteride and Elizabeth) for the treatment of BPH have been shown to lower PSA levels by an average of 50% after 6 months of treatment. Performed By: #### P SAS #### [facility] [address] [place] [address] TSH WITH REFLEX TO FREE T4 I F ABNORMALon 09-03-2020 TSH Qn 0.97 m[IU]/L Normal 0.44 - 3.98 [facility] Comment on above: Order Comment: PATIE NT FASTING Result Comment: TSH testing is performed using different testing methodology at [facility] than at other [facility]. Direct result comparisons should only be made within the same method. Performed By: #### T HYDS #### [facility] [address] [place] [address] CBC AND DIFFERENTIALon 09-02 % AUTOMATED IMMATURE GRAN 0.3 % Normal 0.0 - 0.9 [facility] Comment on above: Order Comment: PATIE NT FASTING Result Comment: [place] Granulocyte Count (IG) includes promyelocytes, myelocytes and metamyelocytes but does not include bands. Percent differential counts (%) should be interpreted in the context of the absolute cell counts (cells/L). Performed By: #### C BCDF #### [facility] [address] [place] [address] Basophils (Bld) [#/Vol] 0.07 10*3/uL Normal 0.00 - 0.10 [facility] Comment on above: Order Comment: PATIE NT FASTING Result Comment: Auto mated WBC differential has been confirmed by manual smear. Performed By: #### C BCDF #### [facility] [address] [place] [address] Basophils/100 WBC (Bld) 0.9 % Normal 0.0 - 2.0 [facility] Comment on above: Order Comment: PATIE NT FASTING Performed By: #### C BCDF #### [facility] [address] [place] [address] Eosinophils (Bld) [#/Vol] 0.21 10*3/uL Normal 0.00 - 0.70 [facility] Comment on above: Order Comment: PATIE NT FASTING Performed By: #### C BCDF #### [facility] [address] [place] [address] Eosinophils/100 WBC (Bld) 2.8 % Normal 0.0 - 6.0 [facility] Comment on above: Order Comment: PATIE NT FASTING Performed By: #### C BCDF #### [facility] [address] [place] [address] Lymphocytes (Bld) [#/Vol] 2.28 10*3/uL Normal 1.20 - 4.80 [facility] Comment on above: Order Comment: PATIE NT FASTING Performed By: #### C BCDF #### [facility] [address] [place] [address] Lymphocytes/100 WBC (Bld) 30.9 % Normal 13.0 - 44.0 [facility] Comment on above: Order Comment: PATIE NT FASTING Performed By: #### C BCDF #### [facility] [address] [place] [address] Monocytes (Bld) [#/Vol] 0.50 10*3/uL Normal 0.10 - 1.00 [facility] Comment on above: Order Comment: PATIE NT FASTING Performed By: #### C BCDF #### [facility] [address] [place] [address] Monocytes/100 WBC (Bld) 6.8 % Normal 2.0 - 10.0 [facility] Comment on above: Order Comment: PATIE NT FASTING Performed By: #### C BCDF #### [facility] [address] [place] [address] Neutrophils (Bld) [#/Vol] 4.29 10*3/uL Normal 1.20 - 7.70 [facility] Comment on above: Order Comment: PATIE NT FASTING Performed By: #### C BCDF #### [facility] [address] [place] [address] Neutrophils/100 WBC (Bld) 58.3 % Normal 40.0 - 80.0 [facility] Comment on above: Order Comment: PATIE NT FASTING Performed By: #### C BCDF #### [facility] [address] [place] [address] Erythrocyte distribution width (RBC) [Ratio] 14.6 % High 11.5 - 14.5 [facility] Comment on above: Order Comment: PATIE NT FASTING Performed By: #### C BCDF #### [facility] [address] [place] [address] Hematocrit (Bld) [Volume fraction] 43.1 % Normal 41.0 - 52.0 [facility] Comment on above: Order Comment: PATIE NT FASTING Performed By: #### C BCDF #### [facility] [address] [place] [address] Hemoglobin (Bld) [Mass/Vol] 13.3 g/dL Low 13.5 - 17.5 [facility] Comment on above: Order Comment: PATIE NT FASTING Performed By: #### C BCDF #### [facility] [address] [place] [address] MCHC (RBC) [Mass/Vol] 30.9 g/dL Low 32.0 - 36.0 [facility] Comment on above: Order Comment: PATIE NT FASTING Performed By: #### C BCDF #### [facility] [address] [place] [address] MCV (RBC) [Entitic vol] 92 fL Normal 80 - 100 [facility] Comment on above: Order Comment: PATIE NT FASTING Performed By: #### C BCDF #### [facility] [address] [place] [address] NUCLEATED RBC 0.0 /100 WBC Normal 0.0-0.0 [facility] Comment on above: Order Comment: PATIE NT FASTING Performed By: #### C BCDF #### [facility] [address] [place] [address] Platelets (Bld) [#/Vol] 267 10*3/uL Normal 150 - 450 [facility] Comment on above: Order Comment: PATIE NT FASTING Performed By: #### C BCDF #### [facility] [address] [place] [address] RBC 4.69 x10E12/L Normal 4.50 - 5.90 [facility] Comment on above: Order Comment: PATIE NT FASTING Performed By: #### C BCDF #### [facility] [address] [place] [address] WBC (Bld) [#/Vol] 7.4 10*3/uL Normal 4.4 - 11.3 [facility] Comment on above: Order Comment: PATIE NT FASTING Performed By: #### C BCDF #### [facility] [address] [place] [address] RED CELL MORPHOLOGYon 2020 [place]ANE[place] CELLS Few Normal [facility] Comment on above: Order Comment: PATIE NT FASTING Performed By: #### M ORP2 #### [facility] [address] [place] [address] OVALOCYTES Few Normal [facility] Comment on above: Order Comment: PATIE NT FASTING Performed By: #### M ORP2 #### [facility] [address] [place] [address] POLYCHROMASIA Mild Normal [facility] Comment on above: Order Comment: PATIE NT FASTING Performed By: #### M ORP2 #### [facility] [address] [place] [address] RBC FRAGMENTS Few Normal [facility] Comment on above: Order Comment: PATIE NT FASTING Performed By: #### M ORP2 #### [facility] [address] [place] [address] RBC morphology finding Nom (Bld) See Below Normal [facility] Comment on above: Order Comment: PATIE NT FASTING Performed By: #### M ORP2 #### [facility] [address] [place] [address] No Panel Informationon 01-19 76 1 MP-Cardiolo [...] [place] Work Phone: [email or web address] ?RetrieveTestByDateTime?P [email or web address]&Date=1 09-13-2019&Time=15%3a11%3a 03%3a00&TestType=ECG&Site =1&OutputType=PDF&Ext=PDF MP-Cardiolo gy-[place] [address] [place] Work Phone: Otheron 11-13-2019 [facility] Complete Blood Count + Diffe [...] WBC (Bld) 2.5 % 0.0 - 6.0 -[facility] Work Phone: Erythrocyte distribution width (RBC) [Ratio] 13.7 % See Below [facility] Work Phone: Comment on above: Reference Range: 11. 5 - 14.5 Hematocrit (Bld) [Volume fraction] 45.5 % See Below [facility] Work Phone: Comment on above: Reference Range: 41. 0 - 52.0 Hemoglobin (Bld) [Mass/Vol] 14.0 g/dL See Below [facility] Work Phone: Comment on above: Reference Range: 13. 5 - 17.5 Lymphocytes (Bld) [#/Vol] 2.15 {x10E9/L} See Below [facility] Work Phone: Comment on above: Reference Range: 1.2 0 - 4.80 Lymphocytes/100 WBC (Bld) 29.9 % See Below [facility] Work Phone: Comment on above: Reference Range: 13. 0 - 44.0 MCHC (RBC) [Mass/Vol] 30.8 g/dL below low threshold See Below [facility] Work Phone: Comment on above: Reference Range: 32. 0 - 36.0 MCV (RBC) [Entitic vol] 94 fL 80 - 100 -[facility] Work Phone: Monocytes (Bld) [#/Vol] 0.49 {x10E9/L} See Below [facility] Work Phone: Comment on above: Reference Range: 0.1 0 - 1.00 Monocytes/100 WBC (Bld) 6.8 % 2.0 - 10.0 -[facility] Work Phone: Neutrophils (Bld) [#/Vol] 4.30 {x10E9/L} See Below [facility] Work Phone: Comment on above: Reference Range: 1.2 0 - 7.70 Neutrophils/100 WBC (Bld) 59.9 % See Below [facility] Work Phone: Comment on above: Reference Range: 40. 0 - 80.0 Platelets (Bld) [#/Vol] 270 {x10E9/L} 150 - 450 [facility] Work Phone: RBC (Bld) [#/Vol] 4.85 {x10E12/L} See Below [facility] Work Phone: Comment on above: Reference Range: 4.5 0 - 5.90 WBC (Bld) [#/Vol] 0.0 {/100_WBC} 0.0-0.0 [facility] Work Phone: WBC (Bld) [#/Vol] 7.2 {x10E9/L} 4.4 - 11.3 [facility] Work Phone: Complete Blood Count + Differential 0.1 % 0.0 - 0.9 [facility] Physician [facility] Work Phone: Comment on above: Immature Granulocyte Count (IG) includes promyelocytes, myelocytes and metamyelocytes but does not include bands. Percent differential counts (%) should be interpreted in the context of the absolute cell counts (cells/L). Lipid Panelon 11-06-2019 Cholesterol [Mass/Vol] 181 mg/dL 0 - 199 [facility] Work Phone: Comment on above: [...] dosing. Cholesterol in HDL [Mass/Vol] 52.1 mg/dL [facility] Work Phone: Comment on above: . AGE VERY LOW LOW N ORMAL HIGH 0-19 Y < 35 < 40 40-45 ---- 20-24 Y ---- < 40 >45 ---- >24 Y ---- < 40 40-60 >60. Cholesterol in LDL [Mass/Vol] 97 mg/dL 0 - 99 [facility] Work Phone: Comment on above: . NEAR BORD AGE IZABELLA RABLE OPTIMAL HIGH HIGH VERY HIGH 0-19 Y 0 - 109 --- 110-129 >/= 130 ---- 20-24 Y 0 - 119 --- 120-159 >/= 160 ---- >24 Y 0 - 99 100-129 130-159 160-189 >/=190. Cholesterol.total/Chol esterol in HDL [Mass ratio] 3.5 {ratio} [facility] Work Phone: Comment on above: REF VALUESDESIRABLE < 3.4HIGH RISK > 5.0 Triglyceride [Mass/Vol] 158 mg/dL above high threshold 0 - 149 [facility] Work Phone: Comment on above: . AGE [...] Lipid Panel 32 mg/dL 0 - 40 [facility] Work Phone: Metabolic Panelon 11-06-2019 ALP [Catalytic activity/Vol] 70 U/L 33 - 136 [facility] Work Phone: Anion gap [Moles/Vol] 13 mmol/L 10 - 20 [facility] Work Phone: Bilirubin [Mass/Vol] 0.6 mg/dL 0.0 - 1.2 [facility] Physician [facility] Work Phone: Calcium [Mass/Vol] 9.4 mg/dL 8.6 - 10.6 [facility] Work Phone: Chloride [Moles/Vol] 99 mmol/L 98 - 107 [facility] Work Phone: CO2 [Moles/Vol] 30 mmol/L 21 - 32 [facility] Work Phone: Creatinine [Mass/Vol] 0.87 mg/dL See Below [facility] Physician [facility] Work Phone: Comment on above: Reference Range: 0.5 0 - 1.30 Glucose [Mass/Vol] 89 mg/dL 74 - 99 [facility] Work Phone: Potassium [Moles/Vol] 4.3 mmol/L 3.5 - 5.3 [facility] Work Phone: Protein [Mass/Vol] 7.3 g/dL 6.4 - 8.2 [facility] Work Phone: Sodium [Moles/Vol] 138 mmol/L 136 - 145 [facility] Work Phone: Urea nitrogen [Mass/Vol] 14 mg/dL 6 - 23 [facility] Work Phone: Otheron 11-06-2019 Albumin BCP dye [Mass/Vol] 4.4 g/dL 3.4 - 5.0 [facility] Work Phone: ALT With P-5'-P [Catalytic activity/Vol] 11 U/L 10 - 52 [facility] Work Phone: Comment on above: Patients treated wit h Sulfasalazine may generate falsely decreased results for ALT. AST With P-5'-P [Catalytic activity/Vol] 17 U/L 9 - 39 [facility] Work Phone: >60 >60 [facility] Work Phone: Comment on above: CALCULATIONS OF LUZMARIA MATED GFR ARE PERFORMED USING THE MDRD STUDY EQUATION FOR THE IDMS-TRACEABLE CREATININE METHODS. CLIN CHEM 2007;53:766-72 Culture, urine Bacteria identified Cx Nom (U) Mixed Gram Pos & Gram Neg [facility]g [facility] Work Phone: Bacteria identified Cx Nom (U) Klebsiella pneumoniae sp pneum [facility] Work Phone: Vital Signs Date Time Vital Sign Value Performing Clinician Facility 09-13-2023 11:48-0400 Body height 175.3 cm Rebecca Buck MD Work Phone: [facility] 09-13-2023 11:48-0400 Body mass index (BMI) [Ratio] 25.84 kg/m2 Rebecca Buck MD Work Phone: [facility] 09-13-2023 11:48-0400 Body weight 79.38 kg Rebecca Buck MD Work Phone: [facility] 08-13-2023 09:56-0400 Body height 175.3 cm Rebecca Buck MD Work Phone: [facility] 08-13-2023 09:56-0400 Body mass index (BMI) [Ratio] 25.84 kg/m2 Rebecca Buck MD Work Phone: [facility] 08-13-2023 09:56-0400 Body weight 79.38 kg Rebecca Buck MD Work Phone: [facility] 03-02-2022 18:49-0400 Body temperature 98.01 [degF] Lanette Munguia DO Work Phone: [facility] 03-02-2022 18:49-0400 Diastolic blood pressure 72 mm[Hg] Lanette Munguia DO Work Phone: [facility] 03-02-2022 18:49-0400 Heart rate 94 /min Lanette Munguia DO Work Phone: [facility] 03-02-2022 18:49-0400 Respiratory rate 18 /min Lanette Munguia DO Work Phone: [facility] 03-02-2022 18:49-0400 SaO2% (BldA) [Mass fraction] 98 % Lanette Munguia DO Work Phone: [facility] 03-02-2022 18:49-0400 Systolic blood pressure 104 mm[Hg] Lanette Munguia DO Work Phone: [facility] 03-02-2022 11:55-0400 Body height 175.3 cm Lanette Munguia DO Work Phone: [facility] 03-02-2022 11:55-0400 Body mass index (BMI) [Ratio] 25.84 kg/m2 Lanette Munguia DO Work Phone: [facility] 03-02-2022 11:55-0400 Body weight 79.38 kg Lanette Munguia DO Work Phone: [facility] 12-22-2021 02:08-0400 Diastolic blood pressure 67 mm[Hg] Sharon Olivia MD Work Phone: [facility] 12-22-2021 02:08-0400 Heart rate 77 /min Sharon Olivia MD Work Phone: [facility] 12-22-2021 02:08-0400 Respiratory rate 16 /min Sharon Olivia MD Work Phone: [facility] 12-22-2021 02:08-0400 SaO2% (BldA) [Mass fraction] 96 % Sharon Olivia MD Work Phone: [facility] 12-22-2021 02:08-0400 Systolic blood pressure 108 mm[Hg] Sharon Olivia MD Work Phone: [facility] 12-21-2021 23:52-0400 Body height 175.3 cm Sharon Olivia MD Work Phone: [facility] 12-21-2021 23:52-0400 Body mass index (BMI) [Ratio] 25.84 kg/m2 Sharon Olivia MD Work Phone: [facility] 12-21-2021 23:52-0400 Body temperature 97.9 [degF] Sharon Olivia MD Work Phone: [facility] 12-21-2021 23:52-0400 Body weight 79.38 kg Sharon Olivia MD Work Phone: [facility] 11-01-2021 08:41-0400 Diastolic blood pressure 77 mm[Hg] Dante Kim MD Work Phone: [facility] [place] 11-01-2021 08:41-0400 Heart rate 75 /min Dante Kim MD Work Phone: [facility] [place] 11-01-2021 08:41-0400 Respiratory rate 16 /min Dante Kim MD Work Phone: [facility] [place] 11-01-2021 08:41-0400 SaO2% (BldA) [Mass fraction] 97 % Dante Kim MD Work Phone: [facility] [place] 11-01-2021 08:41-0400 Systolic blood pressure 112 mm[Hg] Dante Kim MD Work Phone: [facility] [place] 10-31-2021 19:13-0400 Body height 177.8 cm Dante Kim MD Work Phone: [facility] [place] 10-31-2021 19:13-0400 Body mass index (BMI) [Ratio] 27.26 kg/m2 Dante Kim MD Work Phone: [facility] [place] 10-31-2021 19:13-0400 Body temperature 98.49 [degF] Dante Kim MD Work Phone: [facility] [place] 10-31-2021 19:13-0400 Body weight 86.18 kg Dante Kim MD Work Phone: [facility] [place] 10-29-2021 07:38-0400 Body temperature 97.81 [degF] Lisa Michelle DO Work Phone: [facility] [place] 10-29-2021 07:38-0400 Diastolic blood pressure 79 mm[Hg] Lisa Michelle DO Work Phone: [facility] [place] 10-29-2021 07:38-0400 Heart rate 80 /min Lisa Michelle DO Work Phone: [facility] [place] 10-29-2021 07:38-0400 Respiratory rate 18 /min Lisa Michelle DO Work Phone: [facility] [place] 10-29-2021 07:38-0400 SaO2% (BldA) [Mass fraction] 96 % Lisa Michelle DO Work Phone: [facility] [place] 10-29-2021 07:38-0400 Systolic blood pressure 123 mm[Hg] Lisa Michelle DO Work Phone: [facility] [place] 10-25-2021 13:55-0400 Body height 170.2 cm Lisa Michelle DO Work Phone: [facility] [place] 10-21-2021 00:57-0400 Body mass index (BMI) [Ratio] 37.58 kg/m2 Lisa Michelle DO Work Phone: [facility] [place] 10-21-2021 00:57-0400 Body weight 108.86 kg Lisa Michelle DO Work Phone: [facility] [place] 07-13-2020 13:21-0500 BMI (Body Mass Index) 40.47 kg/m2 Monika Staley [facility] Work Phone: 07-13-2020 13:21-0500 Body Temperature 98 [degF] Monika Staley [facility] Work Phone: 07-13-2020 13:21-0500 Body weight 124.31 kg Monika Staley [facility] Work Phone: 07-13-2020 13:21-0500 BP Diastolic 78 mm[Hg] Monika Staley [facility] Work Phone: 07-13-2020 13:21-0500 BP Systolic 138 mm[Hg] Monika Horner [facility] Work Phone: 07-13-2020 13:21-0500 BSA (Body Surface Area) 2.36 m2 Monika Staley [facility] Work Phone: 04-13-2020 15:33-0500 [...] (Body Surface Area) 2.36 m2 Wing Ritter [facility] Work Phone: 04-13-2020 15:33-0500 Height 175.26 cm Wing Harrison [facility] Work Phone: 04-13-2020 15:33-0500 Pulse (Heart Rate) 98 /min Wign Ritter [facility] Work Phone: 04-13-2020 15:33-0500 Pulse Oximetry 98 % Wing Ritter [facility] Work Phone: Comment on above: Source: 04-13-2020 15:33-0500 0 1 Wing Ritter [facility] Work Phone: Comment on above: Pain Scale 09-15-2020 16:39-0400 Body height 175.26 cm Monika Staley MD [facility] [address] [place] Work Phone: 01-20-2020 16:39-0400 Body mass index (BMI) [Ratio] 39.28 kg/m2 Monika Staley MD RM-Oacvqlqamr-Hsh [address] [address] [place] Work Phone: 01-20-2020 16:39-0400 Body surface area Derived from formula 2.33 m2 Monika Staley MD EW-Pxpvwcvdvp-Nzo [address] [place] Work Phone: 01-20-2020 16:39-0400 Body weight 120.66 kg Monika Staley MD [facility] [address] [place] Work Phone: 01-20-2020 16:39-0400 Diastolic blood pressure 84 mm[Hg] Monika Staley MD RH-Kxlfeapxwm-Sky [address] [place] Work Phone: Comment on above: Location: [facility]; Position: Sitting 01-20-2020 16:39-0400 Heart rate 80 /min Monika Staley MD [facility] [address] [place] Work Phone: 01-20-2020 16:39-0400 SaO2% (BldA) [Mass fraction] 100 % Monika Staley MD XQ-Bfahdxrxbw-Fqi [address] [place] Work Phone: Comment on above: Source: 01-20-2020 16:39-0400 Systolic blood pressure 144 mm[Hg] Monika Staley MD BI-Llxxgrbxsn-Cdg [address] [place] Work Phone: Comment on above: Location: [facility]; Position: Sitting 11-06-2019 15:29-0400 BMI (Body Mass Index) 38.31 kg/m2 [facility] Work Phone: 11-06-2019 15:29-0400 Body Temperature 97.6 [degF] Monika Staley [facility] Work Phone: 11-06-2019 [...] Work Phone: 11-06-2019 15:29-0400 Height 175.26 cm Moniak Staley [facility] Work Phone: Encounters Encounter Date Encounter Type Care Provider Facility Start: 12-18-2024 ambulatory Mahaveer Mukka flash OLS Facility:[facility] Start: 12-15-2024 ambulatory Mahaveer Mukka flash OLS Facility:[facility] Start: 12-11-2024 ambulatory Peter Katsaros OLS Faci lity:[facility] Start: 12-08-2024 ambulatory Mahaveer Mukka flash OLS Facility:[facility] Start: 12-04-2024 ambulatory Mahaveer Mukka flash OLS Facility:[facility] Start: 12-02-2024 ambulatory Mahaveer Mukka flash OLS Facility:[facility] Start: 12-01-2024 ambulatory Peter Katsaros OLS Faci lity:[facility] Start: 11-28-2024 ambulatory Peter Katsaros OLS Faci lity:[facility] Start: 11-27-2024 ambulatory Mahaveer Mukka flash OLS Facility:[facility] Start: 11-24-2024 ambulatory Mahaveer Mukka flash OLS Facility:[facility] Start: 11-20-2024 ambulatory Mahaveer Mukka flash OLS Facility:[facility] Start: 11-17-2024 ambulatory Mahaveer Mukka flash OLS Facility:[facility] Start: 11-13-2024 ambulatory [facility] OLS Facility:[facility] Start: 11-10-2024 ambulatory [facility] OLS Facility:[facility] Start: 11-06-2024 ambulatory [facility] OLS Facility:[facility] Start: 11-03-2024 ambulatory Carlos Cavazos OLS Faci lity:[facility] Start: 10-30-2024 ambulatory [facility] OLS Facility:[facility] Start: 10-30-2024 Registered Referred Karon casillas MD -[facility] Start: 10-27-2024 ambulatory [facility] OLS Facility:[facility] Start: 10-27-2024 Registered Referred Karon casillas MD -[facility] Start: 10-23-2024 ambulatory [facility] OLS Facility:[facility] Start: 10-23-2024 Registered Referred Karno [facility] Start: 10-20-2024 ambulatory [facility] OLS Facility:[facility] Start: 10-20-2024 Registered Referred K[facility] Start: 10-16-2024 [facility] Start: 10-16-2024 [facility] Start: 10-13-2024 ambulatory Carlos NOVAK Faci lity:[facility] Start: 10-13-2024 Registered Referred Carlos Cavazos - [facility] Start: 10-09-2024 [facility] Start: 10-09-2024 Registered [facility] Start: 10-06-2024 ambulatory Carlos NOVAK Faci lity:[facility] Start: 10-06-2024 Registered Referred Carlos Cavazos - [facility] Start: 10-02-2024 ambulatory Carlavilmanoe muellera OLS Facility:[facility] Start: 10-02-2024 Registered Referred Karon casillas MD -[facility] Start: 09-30-2024 End: 09-30-[address] Monika Staley MD Work Phone: [facility] Work Phone: Start: 09-30-2024 End: 09-30-2024 Departed Referred Karon Corrales MD -[facility] Start: 09-30-2024 Registered Referred Karon casillas MD -[facility] Start: 09-30-2024 End: 09-30-2024 ambulatory Karon shina OLS Facility:[facility] Start: 09-25-2024 [facility] Start: 09-25-2024 Registered Referred Karon casillas MD -[facility] [employer] Start: 09-22-2024 End: 09-22-[address] Monika Staley MD Work Phone: -[facility] [employer] Start: 09-22-2024 End: 09-22-2024 Departed Referred Karon Corrales MD -[facility] [employer] Start: 09-22-2024 Registered Referred Karon casillas MD -[facility] Start: 09-22-2024 End: 09-22-2024 [facility] Start: 09-18-2024 End: 09-18-[address] Monika Staley MD Work Phone: -[facility] Start: 09-18-2024 End: 09-18-2024 Departed Referred Karon Corrales MD -[facility] [employer] Start: 09-18-2024 Registered Referred Karon casillas MD -[facility] Start: 09-18-2024 End: 09-18-2024 ambulatory Karon Corrales OLS Facility:[facility] Start: 09-15-2024 End: 09-15-[address] Monika Staley MD Work Phone: [facility] Work Phone: Start: 09-15-2024 End: 09-15-2024 Departed Referred Carlos Lópezsaros -[facility] Start: 09-15-2024 Registered Referred Carlos Lópezsaros - [facility] Start: 09-15-2024 End: 09-15-2024 ambulatory Carlos Cavazos OLS Facility:[facility] Start: 09-11-2024 ambulatory Carlavilmanoe Knowles flash OLS Facility:[facility] Start: 09-11-2024 Registered Referred Karon casillas MD -[facility] Start: 09-08-2024 End: 09-08-[address] Monika Staley MD Work Phone: [facility] Work Phone: Start: 09-08-2024 End: 09-08-2024 Departed Referred Karon Corrales MD -[facility] Start: 09-08-2024 Registered Referred Karon casillas MD -[facility] Start: 09-08-2024 End: 09-08-2024 ambulatory Carlaamber Morrisonmingshellie OLS Facility:[facility] Start: 09-04-2024 End: 09-04-2024 Departed Referred Carlos Lópezsaros -[facility] Start: 09-04-2024 Registered Referred Carlos Lópezsaviri - [facility] Start: 09-04-2024 End: 09-04-2024 ambulatory Carlos Cavazos OLS Facility:[facility] Start: 09-01-2024 End: 09-01-[address] Monika Staley MD Work Phone: [facility] Work Phone: Start: 09-01-2024 End: 09-01-2024 Departed Referred Carlos Cavazos -[facility] Start: 09-01-2024 Registered Referred Carlos Cavazos - [facility] Start: 09-01-2024 End: 09-01-2024 ambulatory Carlos NOVAK Facility:[facility] Start: 08-28-2024 End: 08-28-[address] Monika Staley MD Work Phone: [facility] Work Phone: Start: 08-28-2024 End: 08-28-2024 Departed Referred Carlos Cavazos -[facility] Start: 08-28-2024 Registered Referred Carlos Lópezviri - [facility] Start: 08-28-2024 End: 08-28-2024 ambulatory Carlos NOVAK Facility:[facility] Start: 08-25-2024 End: 08-25-[address] Monika Staley MD Work Phone: [facility] Work Phone: Start: 08-25-2024 End: 08-25-2024 Departed Referred Karon Corrales MD -[facility] Start: 08-25-2024 Registered Referred Karon casillas MD -[facility] Start: 08-25-2024 End: 08-25-2024 ambulatory Karon NOVAK Facility:[facility] Start: 08-21-2024 End: 08-21-[address] Monika Staley MD Work Phone: [facility] Work Phone: Start: 08-21-2024 End: 08-21-2024 Departed Referred Karon Corrales MD -[facility] Start: 08-21-2024 Registered Referred [facility] Start: 08-21-2024 End: 08-21-2024 ambulatory Karon NOVAK Facility:[facility] Start: 08-18-2024 End: 08-18-[address] Monika Staley MD Work Phone: [facility] Work Phone: Start: 08-18-2024 End: 08-18-2024 Departed Referred Karon Corrales MD -[facility] Start: 08-18-2024 [facility] Start: 08-18-2024 End: 08-18-2024 ambulatory Karon NOVAK Facility:[facility] Start: 08-14-2024 End: 08-14-[address] Monika Staley MD Work Phone: [facility] Work Phone: Start: 08-14-2024 End: 08-14-2024 [facility]ed [facility] Start: 08-14-2024 Registered [facility] Start: 08-14-2024 End: 08-14-2024 ambulatory Karon NOVAK Facility:[facility] Start: 08-11-2024 End: 08-11-2024 Departed Referred Karon Corrales MD -[facility] Start: 08-11-2024 Registered [facility] Start: 08-11-2024 End: 08-11-2024 ambulatory Karon NOVAK Facility:[facility] Start: 08-07-2024 End: 08-07-2024 Departed [facility] Start: 08-07-2024 Registered Referred Carlos Reeder [facility] Start: 08-07-2024 End: 08-07-2024 ambulatory Carlos NOVAK Facility:[facility] Start: 08-04-2024 End: 08-04-[address] Monika Staley MD Work Phone: [facility] Work Phone: Start: 08-04-2024 End: 08-04-2024 Departed Referred Carlos Cavazos -[facility] Start: 08-04-2024 Registered Referred Carlos Cavazos - [facility] [employer] Start: 08-04-2024 End: 08-04-2024 ambulatory Carlos Cavazos OLS Facility:[facility] Start: 07-31-2024 End: 07-31-[address] Monika Staley MD Work Phone: [facility] Work Phone: Start: 07-31-2024 End: 07-31-2024 Departed Referred Karon Corrales MD -[facility] Start: 07-31-2024 Registered Referred Karon casillas MD -[facility] Start: 07-31-2024 End: 07-31-2024 ambulatory Karon NOVAK Facility:[facility] Start: 07-28-2024 End: 07-28-[address] Monika Staley MD Work Phone: [facility] Work Phone: Start: 07-28-2024 End: 07-28-2024 Departed Referred Karon Corrales MD -[facility] Start: 07-28-2024 Registered Referred Karon casillas MD -[facility] Start: 07-28-2024 End: 07-28-2024 ambulatory Karon Corrales OLS Facility:[facility] Start: 07-25-2024 End: 07-25-[address] Monika Staley MD Work Phone: [facility] Work Phone: Start: 07-25-2024 End: 07-25-2024 Departed Referred [facility] Start: 07-25-2024 Registered Referred Carlos Cavazos - [facility] Start: 07-24-2024 End: 07-25-[address] Monika Staley MD Work Phone: [facility] Work Phone: Start: 07-24-2024 End: 07-24-2024 Departed Referred Karon Corrales MD -[facility] Start: 07-24-2024 Registered Referred Karon casillas MD -[facility] Start: 07-24-2024 End: 07-24-2024 ambulatory Karon Corrales OLS Facility:[facility] Start: 07-21-2024 End: 07-21-[address] Monika Staley MD Work Phone: [facility] Work Phone: Start: 07-21-2024 End: 07-21-2024 Departed Referred Karon Corrales MD -[facility] Start: 07-21-2024 Registered Referred Karon casillas MD -[facility] Start: 07-21-2024 End: 07-21-2024 ambulatory Karon Corrales OLS Facility:[facility] Start: 07-17-2024 End: 07-17-[address] Monika Staley MD Work Phone: [facility] Work Phone: Start: 07-17-2024 End: 07-17-2024 Departed Referred Karon Corrales MD -[facility] Start: 07-17-2024 Registered Referred Karon casillas MD -[facility] Start: 07-17-2024 End: 07-17-2024 ambulatory Karon Corrales OLS Facility:[facility] Start: 07-14-2024 End: 07-14-[address] Monika Staley MD Work Phone: [facility] Work Phone: Start: 07-14-2024 End: 07-14-2024 Departed Referred Carlos Cavazos -[facility] Start: 07-14-2024 Registered Referred Carlos Cavazos - [facility] Start: 07-14-2024 End: 07-14-2024 ambulatory Carlos NOVAK Facility:[facility] Start: 07-11-2024 End: 07-11-[address] Monika Staley MD Work Phone: [facility] Work Phone: Start: 07-11-2024 End: 07-11-2024 Departed Referred Carlos Cavazos -[facility] Start: 07-11-2024 Registered Referred Carlos Cavazos - [facility] Start: 07-11-2024 End: 07-11-2024 ambulatory Carlos NOVAK Facility:[facility] Start: 07-07-2024 End: 07-07-[address] Monika Staley MD Work Phone: [facility] Work Phone: Start: 07-07-2024 End: 07-07-2024 Departed Referred Karon Corrales MD -[facility] [employer] Start: 07-07-2024 [facility] Start: 07-07-2024 End: 07-07-2024 ambulatory Karon NOVAK Facility:[facility] Start: 07-03-2024 End: 07-03-[address] Monika Staley MD Work Phone: [facility] Work Phone: Start: 07-03-2024 End: 07-03-2024 Departed Referred Kvng Crisostomo MD -[facility] Start: 07-03-2024 Registered Referred Kvng Crisostomo MD -[facility] Start: 07-03-2024 End: 07-03-2024 ambulatory Kvng NOVAK Facility:[facility] Start: 06-30-2024 End: 06-30-[address] Monika Staley MD Work Phone: [facility] Work Phone: Start: 06-30-2024 End: 06-30-2024 Departed Referred Kvng Crisostomo MD -[facility] [employer] Start: 06-30-2024 Registered Referred Kvng Crisostomo MD -[facility] Start: 06-30-2024 End: 06-30-2024 ambulatory Kvng NOVAK Facility:[facility] Start: 06-26-2024 ambulatory Kvng NOVAK Fac ility:[facility] Start: 06-26-2024 Registered Referred Kvng Crisostomo MD -[facility] Start: 06-23-2024 End: 06-23-[address] Monika Staley MD Work Phone: [facility] Work Phone: Start: 06-23-2024 End: 06-23-2024 Departed Referred Carlos Cavazos -[facility] Start: 06-23-2024 Registered Referred Carlos Cavazos - [facility] Start: 06-23-2024 End: 06-23-2024 ambulatory Carlos NOVAK Facility:[facility] Start: 06-19-2024 End: 06-19-[address] Monika Staley MD Work Phone: [facility] Work Phone: Start: 06-19-2024 End: 06-19-2024 Departed Referred Kvng Crisostomo MD -[facility] [employer] Start: 06-19-2024 Registered Referred Kvng Crisostomo MD -[facility] Start: 06-19-2024 End: 06-19-2024 ambulatory Kvng NOVAK Facility:[facility] Start: 06-16-2024 End: 06-16-[address] Monika Staley MD Work Phone: [facility] Work Phone: Start: 06-16-2024 End: 06-16-2024 Departed Referred Kvng Crisostomo MD -[facility] Start: 06-16-2024 Registered Referred Kvng Crisostomo MD -[facility] Start: 06-16-2024 End: 06-16-2024 ambulatory Kvng NOVAK Facility:[facility] Start: 06-12-2024 End: 06-12-[address] Monika Staley MD Work Phone: [facility] Work Phone: Start: 06-12-2024 End: 06-12-2024 Departed Referred Kvng Crisostomo MD -[facility] Start: 06-12-2024 Registered Referred Kvng Crisostomo MD -[facility] Start: 06-12-2024 End: 06-12-2024 ambulatory Kvng NOVAK Facility:[facility] Start: 06-09-2024 End: 06-09-[address] Monika Staley MD Work Phone: [facility] Work Phone: Start: 06-09-2024 End: 06-09-2024 Departed Referred Carlos Cavazos -[facility] Start: 06-09-2024 Registered Referred Carlos Cavazos - [facility] Start: 06-09-2024 End: 06-09-2024 ambulatory Carlos NOVAK Facility:[facility] Start: 06-05-2024 End: 06-05-[address] Monika Staley MD Work Phone: [facility] Work Phone: Start: 06-05-2024 End: 06-05-2024 Departed Referred Kvng Crisostomo MD -[facility] Start: 06-05-2024 End: 06-05-2024 ambulatory Kvng NOVAK Facility:[facility] Start: 06-02-2024 End: 06-02-[address] Monika Staley MD Work Phone: [facility] Work Phone: Start: 06-02-2024 End: 06-02-2024 Departed Referred Kvng Crisostomo MD -[facility] Start: 06-02-2024 Registered Referred Kvng Crisostomo MD -[facility] Start: 06-02-2024 End: 06-02-2024 ambulatory Kvng NOVAK Facility:[facility] Start: 05-29-2024 End: 05-29-[address] Monika Staley MD Work Phone: [facility] Work Phone: Start: 05-29-2024 End: 05-29-2024 Departed Referred Kvng Crisostomo MD -[facility] [employer] Start: 05-29-2024 Registered Referred Kvng Crisostomo MD -[facility] Start: 05-29-2024 End: 05-29-2024 ambulatory Kvng NOVAK Facility:[facility] Start: 05-26-2024 End: 05-26-[address] Monika Staley MD Work Phone: [facility] Work Phone: Start: 05-26-2024 End: 05-26-2024 Departed Referred Carlos Cavazos [facility] Start: 05-26-2024 Registered Referred Carlos Cavazos - [facility] Start: 05-26-2024 End: 05-26-2024 ambulatory Carlos NOVAK Facility:[facility] Start: 05-22-2024 ambulatory Kvng NOVAK Fac ility:[facility] Start: 05-22-2024 Registered Referred Kvng Crisostomo MD -[facility] Start: 05-20-2024 End: 05-20-2024 Departed Referred Kvng Crisostomo MD -[facility] Start: 05-19-2024 End: 05-20-2024 ambulatory Kvng Jonesluis enrique NOVAK Facility:[facility] Start: 05-19-2024 Registered Referred Kvng Crisostomo MD -[facility] Start: 05-15-2024 End: 05-15-2024 Departed Referred Kvng Crisostomo MD -[facility] Start: 05-15-2024 End: 05-15-2024 ambulatory Kvng Jonesluis enrique NOVAK Facility:[facility] Start: 05-12-2024 End: 05-12-2024 Departed Referred Carlos Cavazos -[facility] Start: 05-12-2024 End: 05-12-2024 ambulatory Carlos NOVAK Facility:[facility] Start: 05-09-2024 End: 05-09-2024 Departed Referred Kvng Crisostomo MD -[facility] Start: 05-09-2024 End: 05-09-2024 ambulatory Kvng Jonesluis enrique NOVAK Facility:[facility] Start: 05-08-2024 End: 05-08-2024 Departed Referred Kvng Crisostomo MD -[facility] Start: 05-08-2024 End: 05-08-2024 ambulatory Kvng Jonesluis enrique NOVAK Facility:[facility] Start: 05-05-2024 End: 05-05-2024 Departed Referred Kvng Crisostomo MD -[facility] Start: 05-05-2024 End: 05-05-2024 ambulatory Kvng Jonesluis enrique NOVAK Facility:[facility] Start: 05-01-2024 End: 05-01-2024 Departed Referred Kvng Crisostomo MD -[facility] Start: 05-01-2024 End: 05-01-2024 ambulatory Vicenterocio Andressa ONVAK Facility:[facility] Start: 04-28-2024 End: 04-28-2024 Departed Referred [facility] Start: 04-28-2024 End: 04-28-2024 ambulatory Carlos NOVAK Facility:[facility] Start: 04-24-2024 End: 04-24-2024 Departed Referred Kvng Crisostomo MD -[facility] Start: 04-24-2024 End: 04-24-2024 ambulatory Elizabethmilton Andressa NOVAK Facility:[facility] Start: 04-21-2024 End: 04-21-2024 Departed Referred Carlos [facility] Start: 04-21-2024 End: 04-21-2024 ambulatory Carlos NOVAK Facility:[facility] Start: 04-17-2024 ambulatory Kvng Jonesluis enrique NOVAK Fac ility:[facility] Start: 04-17-2024 Registered Referred Kvng Crisostomo MD -[facility] Start: 04-14-2024 ambulatory AviskarolVijay NOVAK Fac ility:[facility] Start: 04-14-2024 Registered Referred Kvng Crisostomo MD -[facility] Start: 04-10-2024 End: 04-10-2024 Departed Referred Kvng Crisostomo MD -[facility] Start: 04-10-2024 End: 04-10-2024 ambulatory Elizabethmilton Andressa NOVAK Facility:[facility] Start: 04-07-2024 End: 04-07-2024 Departed Referred Carlos Cavazos [facility] Start: 04-07-2024 End: 04-07-2024 ambulatory Carlos NOVAK Facility:[facility] Start: 04-04-2024 ambulatory Kvng Andressa NOVAK Fac ility:[facility] Start: 04-04-2024 Registered [facility] Start: 03-31-2024 End: 03-31-2024 Departed [facility] Start: 03-31-2024 End: 03-31-2024 ambulatory Carlos NOVAK Facility:[facility] Start: 03-27-2024 End: 03-27-2024 [facility] Start: 03-27-2024 End: 03-27-2024 ambulatory [facility] Facility:[facility] Start: 03-24-2024 End: 03-24-2024 Departed Referred Kvng Crisostomo MD -[facility] Start: 03-24-2024 End: 03-24-2024 ambulatory Kvng NOVAK Facility:[facility] Start: 03-20-2024 End: 03-20-2024 Departed Referred [facility] Start: 03-20-2024 End: 03-20-2024 ambulatory Shiela Luís Facility:[facility] Start: 03-19-2024 End: 03-19-2024 Departed Referred Kvng Crisostomo MD -[facility] Start: 03-19-2024 End: 03-19-2024 ambulatory Kvng NOVAK Facility:[facility] Start: 03-18-2024 End: 03-18-2024 Departed Referred [facility] Start: 03-18-2024 End: 03-18-2024 ambulatory Shiela Luís Facility:[facility] Start: 03-17-2024 End: 03-17-2024 Departed [facility] Start: 03-17-2024 End: 03-17-2024 ambulatory Shiela Luís Facility:[facility] Start: 03-14-2024 End: 03-14-2024 Departed Referred [facility] Start: 03-14-2024 End: 03-14-2024 ambulatory Carlos NOVAK Facility:[facility] Start: 03-13-2024 End: 03-13-2024 Departed Referred [facility] Start: 03-13-2024 End: 03-13-2024 ambulatory [facility] Facility:[facility] Start: 03-10-2024 End: 03-10-2024 ambulatory [facility] Facility:[facility] Start: 03-06-2024 End: 03-06-2024 ambulatory [facility] Facility:[facility] Start: 03-03-2024 End: 03-03-2024 ambulatory [facility] Facility:[facility] Start: 02-28-2024 End: 02-28-2024 ambulatory [facility] Facility:[facility] Start: 02-25-2024 End: 02-25-2024 ambulatory Carlos Lópezsaviri OLS Facility:[facility] Start: 02-21-2024 End: 02-21-2024 ambulatory [facility] Facility:[facility] Start: 02-18-2024 End: 02-18-2024 ambulatory [facility] Facility:[facility] Start: 02-14-2024 End: 02-14-2024 ambulatory [facility] Facility:[facility] Start: 02-12-2024 End: 02-12-2024 ambulatory Carlos NOVAK Facility:[facility] Start: 02-11-2024 End: 02-11-2024 ambulatory [facility] Facility:[facility] Start: 02-08-2024 End: 02-08-2024 ambulatory Carlos NOVAK Facility:[facility] Start: 02-07-2024 End: 02-07-2024 ambulatory Carlos NOVAK Facility:[facility] Start: 02-04-2024 End: 02-04-2024 ambulatory Carlos Lópezsaviri OLS Facility:[facility] Start: 02-01-2024 ambulatory Carlos Lópezsaviri OLS Faci lity:[facility] Start: 01-30-2024 End: 01-30-2024 ambulatory Carlos Lópezsaviri OLS Facility:[facility] Start: 01-29-2024 End: 01-29-2024 ambulatory [facility] Facility:[facility] Start: 01-21-2024 End: 01-21-2024 ambulatory Carlos Lópezsaros OLS Facility:[facility] Start: 01-14-2024 End: 01-14-2024 ambulatory Carlos Lópezsaros OLS Facility:[facility] Start: 01-11-2024 ambulatory Carlos Lópezsaros OLS Faci lity:[facility] Start: 01-10-2024 End: 01-10-2024 ambulatory [facility] Facility:[facility] Start: 01-08-2024 End: 01-08-2024 ambulatory Carlos NOVAK Facility:[facility] Start: 01-01-2024 End: 01-02-2024 ambulatory Carlos NOVAK Facility:[facility] Start: 12-27-2023 End: 12-27-2023 ambulatory Carlos NOVAK Facility:[facility] Start: 12-24-2023 End: 12-24-2023 ambulatory Carlos NOVAK Facility:[facility] Start: 09-13-2023 End: 09-13-2023 ambulatory [facility] Start: 09-13-2023 End: 09-13-2023 Office outpatient visit 25 minutes Rebecca Buck MD Work Phone: [facility] Comment on above: Left flank pain (Christina magui Dx); BPH with urinary obstruction; History of kidney stones Start: 09-06-2023 End: 09-07-2023 ambulatory [facility] Start: 09-06-2023 End: 09-06-2023 Subsequent hospital visit by physician Rebecca Buck MD Work Phone: [facility] Comment on above: Left flank pain; Calculus of ureter Start: 08-31-2023 ambulatory Eloise Stern RN [facility] Clinical Communication Start: 08-31-2023 Patient encounter procedure Eloise Stern RN [facility] Start: 08-21-2023 Telephone encounter Rebecca Buck MD Work Phone: [facility] Clinical Communication Comment on above: CT appt Boaz advice Start: 08-21-2023 Registered Referred [facility] Start: 08-13-2023 End: 08-13-2023 ambulatory [facility] Start: 08-13-2023 End: 08-13-2023 Office outpatient new 45 minutes Rebecca Buck MD Work Phone: [facility] Comment on above: Left flank pain (Christina magui Dx); Calculus of ureter; Disease of prostate; BPH with urinary obstruction Start: 08-03-2023 End: 08-03-2023 ambulatory [facility] Work Phone: Start: 08-03-2023 End: 08-03-2023 [facility] Start: 07-20-2023 End: 07-20-2023 ambulatory [facility] Work Phone: Start: 07-20-2023 End: 07-20-2023 [facility]ed [facility] Start: 07-20-2023 [facility] Start: 07-18-2023 End: 07-18-2023 ambulatory [facility] Work Phone: Start: 07-18-2023 End: 07-18-2023 Departed [facility] Start: 07-18-2023 [facility] Start: 07-16-2023 End: 07-16-2023 ambulatory [facility] Work Phone: Start: 07-16-2023 End: 07-16-2023 Departed [facility]erred [facility] Start: 07-16-2023 [facility] Start: 07-13-2023 End: 07-13-2023 ambulatory [facility] Work Phone: Start: 07-13-2023 End: 07-13-2023 Departed [facility]erred [facility] Start: 07-13-2023 [facility] Start: 07-12-2023 End: 07-12-2023 ambulatory [facility] Work Phone: Start: 07-12-2023 End: 07-12-2023 Departed [facility]erred [facility] Start: 07-12-2023 [facility] Start: 07-05-2023 End: 07-05-2023 ambulatory [facility] Work Phone: Start: 07-05-2023 End: 07-05-2023 Departed [facility]erred [facility] Start: 07-05-2023 [facility] Start: 07-02-2023 [facility] Start: 06-28-2023 End: 06-28-2023 ambulatory [facility] Work Phone: Start: 06-28-2023 End: 06-28-2023 Departed [facility]erred [facility] Start: 06-28-2023 [facility] Start: 06-25-2023 Telephone encounter Rebecca Buck MD Work Phone: [facility] Start: 06-25-2023 End: 06-25-2023 ambulatory [facility] Work Phone: Start: 06-25-2023 End: 06-25-2023 Departed [facility] Start: 06-25-2023 [facility] Start: 06-21-2023 End: 06-21-2023 ambulatory [facility] Work Phone: Start: 06-21-2023 End: 06-21-2023 Departed Referred [facility] Start: 06-21-2023 [facility] Start: 06-13-2023 End: 06-13-2023 ambulatory [facility] Work Phone: Start: 06-13-2023 End: 06-13-2023 Departed Referred [facility] Start: 06-06-2023 End: 06-06-2023 ambulatory [facility] Work Phone: Start: 06-06-2023 End: 06-06-2023 Departed Referred [facility] Start: 06-06-2023 Registered [facility] Start: 05-23-2023 End: 05-23-2023 ambulatory [facility] Work Phone: Start: 05-23-2023 End: 05-23-2023 Departed Referred [facility] Start: 05-09-2023 End: 05-09-2023 Departed Referred [facility] Start: 05-09-2023 [facility] Start: 04-23-2023 End: 04-23-2023 [facility] Start: 04-09-2023 End: 04-09-2023 ambulatory [facility] Work Phone: Start: 04-09-2023 End: 04-09-2023 Departed [facility]erred [facility] Start: 04-09-2023 [facility] Start: 04-02-2023 End: 04-02-2023 ambulatory [facility] Work Phone: Start: 04-02-2023 End: 04-02-2023 Departed [facility]erred [facility] Start: 04-02-2023 [facility] Start: 03-26-2023 End: 03-26-2023 ambulatory [facility] Work Phone: Start: 03-26-2023 End: 03-26-2023 [facility] Start: 03-26-2023 [facility] Start: 03-22-2023 End: 03-22-2023 ambulatory [facility] Work Phone: Start: 03-22-2023 End: 03-22-2023 [facility] Start: 03-22-2023 Registered Referred [facility] Start: 03-08-2023 End: 03-08-2023 ambulatory [facility] Work Phone: Start: 03-08-2023 End: 03-08-2023 Departed [facility] Start: 02-22-2023 End: 02-22-2023 ambulatory [facility] Work Phone: Start: 02-22-2023 End: 02-22-2023 Departed Referred [facility] Start: 02-22-2023 Registered [facility] Start: 02-15-2023 End: 02-15-2023 ambulatory [facility] Work Phone: Start: 02-15-2023 End: 02-15-2023 Departed Referred [facility] Start: 02-15-2023 Registered [facility] Start: 02-08-2023 End: 02-08-2023 ambulatory [facility] Work Phone: Start: 02-08-2023 End: 02-08-2023 Departed [facility] Start: 01-31-2023 End: 01-31-2023 ambulatory [facility] Work Phone: Start: 01-31-2023 End: 01-31-2023 Departed [facility] Start: 01-31-2023 Registered Referred [facility] Start: 01-29-2023 End: 01-29-2023 Departed [facility] Start: 01-29-2023 Registered Referred [facility] Start: 01-26-2023 End: 01-26-2023 Departed [facility] Start: 01-26-2023 Registered Referred [facility] Start: 01-24-2023 End: 01-24-2023 Departed [facility] Start: 01-24-2023 [facility] Start: 01-22-2023 End: 01-22-2023 ambulatory [facility] Work Phone: Start: 01-22-2023 End: 01-22-2023 Departed [facility]erred [facility] Start: 01-22-2023 [facility] Start: 01-10-2023 End: 01-10-2023 ambulatory [facility] Work Phone: Start: 01-10-2023 End: 01-10-2023 Departed [facility]erred [facility] Start: 01-10-2023 [facility] Start: 12-27-2022 End: 12-27-2022 ambulatory [facility] Work Phone: Start: 12-27-2022 End: 12-27-2022 Departed Referred [facility] Start: 12-27-2022 [facility] Start: 12-21-2022 End: 12-21-2022 ambulatory [facility] Work Phone: Start: 12-21-2022 End: 12-21-2022 Departed [facility]erred [facility] Start: 12-21-2022 [facility] Start: 12-14-2022 End: 12-14-2022 ambulatory [facility] Work Phone: Start: 12-14-2022 End: 12-14-2022 Departed Referred [facility] Start: 12-14-2022 [facility] Start: 12-07-2022 End: 12-07-2022 ambulatory [facility] Work Phone: Start: 12-07-2022 End: 12-07-2022 Departed [facility] Start: 12-07-2022 Registered [facility] Start: 11-24-2022 End: 11-24-2022 ambulatory [facility] Work Phone: Start: 11-24-2022 End: 11-24-2022 Departed Referred [facility] Start: 11-24-2022 Registered [facility] Start: 11-23-2022 End: 11-23-2022 ambulatory [facility] Work Phone: Start: 11-23-2022 End: 11-23-2022 Departed Referred [facility] Start: 11-23-2022 Registered [facility] Start: 11-22-2022 End: 11-22-2022 ambulatory [facility] Work Phone: Start: 11-22-2022 End: 11-22-2022 Departed Referred [facility] Start: 11-22-2022 Registered [facility] Start: 11-09-2022 End: 11-09-2022 ambulatory [facility] Work Phone: Start: 11-09-2022 End: 11-09-2022 Departed [facility] Start: 11-09-2022 Registered Referred [facility] Start: 10-26-2022 End: 10-26-2022 Departed Referred [facility] Start: 10-26-2022 Registered [facility] Start: 10-12-2022 End: 10-12-2022 ambulatory [facility] Work Phone: Start: 10-12-2022 End: 10-12-2022 Departed [facility]erred [facility] Start: 10-12-2022 [facility] Start: 10-05-2022 End: 10-05-2022 Departed [facility]erred [facility] Start: 10-05-2022 [facility] Start: 09-28-2022 End: 09-28-2022 ambulatory [facility] Work Phone: Start: 09-28-2022 End: 09-28-2022 Departed [facility] Start: 09-14-2022 End: 09-14-2022 Departed Referred [facility] Start: 08-31-2022 End: 08-31-2022 Departed Referred [facility] Start: 08-31-2022 [facility] Start: 08-23-2022 End: 08-23-2022 ambulatory [facility] Work Phone: Start: 08-23-2022 End: 08-23-2022 Departed Referred [facility] Start: 08-23-2022 [facility] Start: 08-17-2022 End: 08-17-2022 ambulatory [facility] Work Phone: Start: 08-17-2022 End: 08-17-2022 Departed Referred [facility] Start: 08-17-2022 [facility] Start: 08-14-2022 End: 08-14-2022 ambulatory [facility] Work Phone: Start: 08-14-2022 End: 08-14-2022 Departed Referred [facility] Start: 08-14-2022 Registered [facility] Start: 07-31-2022 End: 07-31-2022 ambulatory [facility] Work Phone: Start: 07-31-2022 End: 07-31-2022 Departed Referred [facility] Start: 07-31-2022 Registered [facility] Start: 07-24-2022 End: 07-24-2022 ambulatory [facility] Work Phone: Start: 07-24-2022 End: 07-24-2022 Departed [facility]erred [facility] Start: 07-24-2022 Registered [facility] Start: 07-20-2022 End: 07-20-2022 Departed Referred [facility] Start: 07-20-2022 Registered [facility] Start: 07-17-2022 End: 07-17-2022 Departed Referred [facility] Start: 07-17-2022 Registered [facility] Start: 07-11-2022 Registered [facility] Start: 07-10-2022 End: 07-10-2022 ambulatory [facility] Work Phone: Start: 07-10-2022 End: 07-10-2022 Departed Referred [facility] Start: 07-10-2022 Registered [facility] Start: 07-03-2022 End: 07-03-2022 ambulatory [facility] Work Phone: Start: 07-03-2022 End: 07-03-2022 Departed [facility]erred [facility] Start: 07-03-2022 Registered Referred [facility] Start: 06-27-2022 End: 06-27-2022 ambulatory [facility] Work Phone: Start: 06-27-2022 End: 06-27-2022 Departed Referred [facility] Start: 06-27-2022 [facility] Start: 06-13-2022 End: 06-13-2022 ambulatory [facility] Work Phone: Start: 06-13-2022 End: 06-13-2022 Departed Referred [facility] Start: 06-13-2022 [facility] Start: 06-06-2022 End: 06-06-2022 ambulatory [facility] Work Phone: Start: 06-06-2022 End: 06-06-2022 Departed [facility] Start: 06-06-2022 [facility] Start: 05-30-2022 End: 05-30-2022 ambulatory [facility] Work Phone: Start: 05-30-2022 End: 05-30-2022 Departed [facility] Start: 05-30-2022 [facility] Start: 05-16-2022 End: 05-16-2022 ambulatory [facility] Work Phone: Start: 05-16-2022 End: 05-16-2022 Departed [facility]erred [facility] Start: 05-16-2022 [facility] Start: 05-02-2022 End: 05-02-2022 ambulatory [facility] Work Phone: Start: 05-02-2022 End: 05-02-2022 Departed [facility]erred [facility] Start: 05-02-2022 Registered Referred [facility] Start: 04-27-2022 End: 04-27-2022 ambulatory [facility] Work Phone: Start: 04-27-2022 End: 04-27-2022 Departed Referred [facility] Start: 04-27-2022 Registered [facility] Start: 04-26-2022 End: 04-26-2022 ambulatory [facility] Work Phone: Start: 04-26-2022 End: 04-26-2022 Departed Referred [facility] Start: 04-11-2022 End: 04-11-2022 ambulatory [facility] Work Phone: Start: 04-11-2022 End: 04-11-2022 Departed Referred [facility] Start: 03-28-2022 End: 03-28-2022 Departed Referred [facility] Start: 03-28-2022 Registered Referred [facility] Start: 03-23-2022 End: 03-23-2022 Departed Referred [facility] Start: 03-23-2022 Registered [facility] Start: 03-16-2022 End: 03-16-2022 ambulatory [facility] Work Phone: Start: 03-16-2022 End: 03-16-2022 Departed [facility]erred [facility] Start: 03-16-2022 Registered [facility] Start: 03-09-2022 End: 03-09-2022 ambulatory [facility] Work Phone: Start: 03-09-2022 End: 03-09-2022 Departed [facility]erred [facility] Start: 03-09-2022 Registered Referred [facility] Start: 03-06-2022 End: 03-06-2022 ambulatory [facility] Work Phone: Start: 03-06-2022 End: 03-06-2022 [facility] Start: 03-06-2022 Registered [facility] Start: 03-02-2022 End: 03-03-2022 Emergency department patient visit UNKNOWN PROVIDER [facility] Start: 03-02-2022 End: 03-02-2022 Emergency department patient visit Lanette Munguia DO Work Phone: [facility] Emergency Dept Comment on above: Fall, initial encoun ter (Primary Dx); Anticoagulated Start: 02-20-2022 End: 02-20-2022 [facility] Start: 02-20-2022 Registered Referred [facility] Start: 02-13-2022 End: 02-13-2022 ambulatory [facility] Work Phone: Start: 02-13-2022 End: 02-13-2022 [facility] Start: 02-13-2022 [facility] Start: 02-06-2022 End: 02-06-2022 ambulatory [facility] Work Phone: Start: 02-06-2022 End: 02-06-2022 [facility] Start[facility] 02-06-2022 [facility] Start: 01-30-2022 End: 01-30-2022 [facility] Start[facility] 01-30-2022 [facility] Start: 01-26-2022 End: 01-26-2022 ambulatory [facility] Work Phone: Start: 01-26-2022 End: 01-26-2022 [facility] Start: 01-26-2022 [facility] Start: 01-19-2022 End: 01-19-2022 ambulatory [facility] Work Phone: Start: 01-19-2022 End: 01-19-2022 [facility] Start[facility] 01-19-2022 [facility] Start: 01-17-2022 [facility]22 [facility] Start: 01-10-2022 End: 01-10-2022 ambulatory [facility] Work Phone: Start: 01-10-2022 End: 01-10-2022 [facility] Start: 01-10-2022 [facility] Start[facility] 01-06-2022 AUDIT Monika Elias rt [facility] Work Phone: Start: 01-05-2022 End: 01-05-2022 Dep[facility]ed [facility] Start: 01-05-2022 [facility] Start: 12-30-2021 End: 12-30-2021 [facility] Start: 12-30-2021 [facility] Start: 12-28-2021 End: 12-28-2021 ambulatory [facility] Work Phone: Start: 12-28-2021 End: 12-28-2021 [facility]ed [facility] Start: 12-28-2021 [facility] Start: 12-26-2021 End: 12-26-2021 ambulatory [facility] Work Phone: Start: 12-26-2021 End: 12-26-2021 [facility] Start[facility] 12-26-2021 Registered Ref[facility] Start: 12-22-2021 End: 12-22-2021 ambulatory [facility] Work Phone: Start: 12-22-2021 End: 12-22-2021 Departed [facility] Start: 12-22-2021 Registered [facility] Start: 12-22-2021 End: 12-22-2021 [facility] Start: 12-21-2021 End: 12-22-2021 Emergency department patient visit Sharon Olivia MD Work Phone: [facility] Emergency Dept Comment on above: Heel ulceration, lef t, with unspecified severity (HCC) (Primary Dx) Start: 12-19-2021 End: 12-19-2021 ambulatory [facility] Work Phone: Start: 12-19-2021 End: 12-19-2021 Departed Referred [facility] Start: 12-19-2021 Registered [facility] Start: 12-12-2021 End: 12-12-2021 ambulatory [facility] Work Phone: Start: 12-12-2021 End: 12-12-2021 Departed Referred [facility] Start: 12-12-2021 Registered Referred [facility] Start: 12-08-2021 End: 12-08-2021 ambulatory [facility] Work Phone: Start: 12-08-2021 End: 12-08-2021 Departed Referred [facility] Start: 08-04-2022 [facility] Start: 12-05-2021 End: 12-05-2021 ambulatory [facility] Work Phone: Start: 12-05-2021 End: 12-05-2021 [facility]ed [facility] Start: 12-05-2021 [facility] Start: 12-01-2021 End: 12-01-2021 [facility]ed [facility] Start: 12-01-2021 [facility] Start: 11-28-2021 End: 11-28-2021 [facility] Start: 11-28-2021 [facility] Start: 11-25-2021 Rx Renewal Monika Elias rt Work Phone: [facility] Work Phone: Start: 11-23-2021 End: 11-23-2021 [facility]ed [facility] Start: 11-23-2021 [facility] Start: 11-22-2021 End: 11-22-2021 Dep[facility]ed [facility] Start: 11-22-2021 [facility] Start: 11-21-2021 End: 11-21-2021 Departed [facility] Start: 11-15-2021 AUDIT Monika Elias rt Work Phone: [facility] Work Phone: Start: 11-14-2021 End: 11-14-2021 [facility]ed [facility] Start: 11-14-2021 [facility]istered [facility] Start: 11-08-2021 End: 11-08-2021 Departed Referred [facility] Start: 11-08-2021 Registered Referred [facility] Start: 11-04-2021 End: 11-04-2021 Departed Referred [facility] Start: 11-04-2021 Registered Referred [facility] Start: 10-31-2021 End: 11-01-2021 Emergency department patient visit UNKNOWN PROVIDER [facility] Start: 10-31-2021 End: 11-01-2021 Emergency department patient visit Dante Kim MD Work Phone: [facility] Emergency Dept Comment on above: Other fatigue (Prima ry Dx) Start: 10-31-2021 End: 10-31-2021 Departed Referred [facility] Start: 10-21-2021 End: 10-29-2021 Evaluation and management of inpatient UNKNOWN PROVIDER [facility] Start: 10-21-2021 End: 10-29-2021 Evaluation and management of inpatient Lisa Michelle DO Work Phone: [facility] Comment on above: Leg swelling (Primar y Dx); Acute deep vein thrombosis (DVT) of proximal vein of lower extremity, unspecified laterality (HCC) Start: 10-20-2021 End: 10-20-2021 Departed Referred [facility] Start: 10-17-2021 Telephone encounter Nicole davis MD Work Phone: [facility] Comment on above: Missed Appointment Start: 09-19-2021 End: 09-19-2021 Departed Referred [facility] Start: 11-02-2020 AUDIT Monika Elias rt Work Phone: [facility] Work Phone: Start: 10-27-2020 AUDIT Monika Elias rt Work Phone: [facility] Work Phone: Start: 07-13-2020 Patient encounter procedure Monika Staley [facility] Physician [facility] Work Phone: Start: 04-13-2020 Patient encounter procedure Wing Ritter [facility] Work Phone: Start: 04-07-2020 Patient encounter procedure Wing Ritter [facility] Work Phone: Start: 03-18-2020 Patient encounter procedure Wing Ritter [facility] Work Phone: Start: 01-20-2020 Patient encounter procedure [...] Basic metabolic pane l calcium total Henry Hidalgo PA Work Phone: Start: 12-22-2021 C-reactive protein Travis Jameel PA Work Phone: Start: 12-22-2021 COVID-19, FLU A/B, A ND RSV COMBO Henry Hidalgo PA Work Phone: Start: 12-22-2021 Radex foot complete minimum 3 views Henry Hidalgo PA Work Phone: Start: 11-01-2021 Urnls dip [...] Start: 10-26-2021 Electroencephalogram w/rec awake&asleep Sarina Pineda EMERGENCY COMMUNICATIONS DISPATCHER - HEEL VARNISHER Work Phone: Start: 10-26-2021 Ct head/brain w/o co ntrast material Sarina Lomasver EMERGENCY COMMUNICATIONS DISPATCHER - HEEL VARNISHER Work Phone: Start: 10-26-2021 Prothrombin time Andres Sheridan MD Work Phone: Start: 10-25-2021 Speech and language therapy regime Sarina Pineda EMERGENCY COMMUNICATIONS DISPATCHER - HEEL VARNISHER Work Phone: Start: 10-25-2021 Prothrombin time Andres [...] 19-9 Wing Srivastava MD Work Phone: Start: 06-18-2022 Ct abdomen & pelvis w/o contrast material Wing Srivastava MD Work Phone: Start: 10-22-2021 Prothrombin time Andres Sheridan MD Work Phone: Start: 10-22-2021 Basic metabolic pane l calcium total May Cash MD Start: 10-21-2021 Blood count reticulo cyte automated Gilbert B Niesha EMERGENCY COMMUNICATIONS DISPATCHER - HEEL VARNISHER Work Phone: Start: 10-21-2021 C-reactive protein Loua nn B Niesha EMERGENCY COMMUNICATIONS DISPATCHER - HEEL VARNISHER Work Phone: Start: 10-21-2021 Non-invas physiologi c std extremity art 2 level Shruthi Malik EMERGENCY COMMUNICATIONS DISPATCHER - HEEL VARNISHER Work Phone: Start: 10-21-2021 Radex calcaneus mini mum 2 views Shruthi Frenchacre EMERGENCY COMMUNICATIONS DISPATCHER - HEEL VARNISHER Work Phone: Start: 10-21-2021 Dup-scan xtr veins [...] Comment: Speci men Type: BLOOD SPECIMENOrdering Facility: [facility] Address: [address] [place] [address] Performed By: #### T SCR ####[facility] BLOOD BANKCLIA [id number] [address] Start: 08-04-2021 Antibody screen Comment on above: Order Comment: Speci men Type: BLOOD SPECIMENOrdering Facility: [facility] Address: [address] [place] [address] Performed By: #### T SCR ####[facility] BLOOD BANKCLIA [id number] [place] [address] [facility] Start: 08-01-2021 Antibody screen Comment on above: Order Comment: Speci men Type: BLOOD SPECIMENOrdering Facility: [facility] Address: [address] [place] [address] Performed By: #### T SCR ####[facility] BLOOD BANKCLIA [id number] [place] [id number] [facility] Start: 06-07-2021 Antibody screen Comment on above: Order Comment: Speci men Type: BLOOD SPECIMEN Performed By: #### T SCR ####[facility] BLOOD BANKCLIA [id number] [place] [id number] [facility] Start: 09-02-2020 Lipid 1996 panel - S bradly or Plasma Rebecca Buck MD Work Phone: Start: 04-07-2020 Echocardiography Wing Ritter Start: 11-13-2019 Radiologic examinati on tibia & fibula 2 views 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 (David Lewis Work Phone: Hernia repair Monika melvin History of Cholecystotomy An yvette Staley History of Creation Of Subdural-Peritoneal CSF Shunt Monika Staley 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 Monika Staley Urine culture Plan of Treatment Date Care Activity Detail Author Start: 09-22-2026 DTaP/Tdap/Td vaccine (2 - Td or Tdap) DTaP/Tdap/Td vaccine (2 - Td or Tdap) [facility] Start: 09-22-2026 DTaP/Tdap/Td vaccine (2 - Td) DTaP/Tdap/Td vaccine (2 - Td) [facility] Work Phone: Start: 09-22-2026 DTaP/Tdap/Td Vaccine s (2 - Td or Tdap) DTaP/Tdap/Td Vaccines (2 - Td or Tdap) [facility] Start: 09-02-2025 Lipid panel Lipid Panel [facility] Start: 08-22-2024 DIABETES SCREEN DIABETES SCREEN [facility] Start: 12-04-2023 Lipid panel Lipids [facility] Start: 12-04-2023 Lipid screen Lipid screen [facility] Work Phone: Start: 09-13-2023 End: 09-13-2023 Patient encounter procedure 09/13/2023 11:30 AM EDT Office Visit [facility] [address] [place] [id number] Rebecca Buck MD [address] [place] [address] [facility] Start: 08-31-2023 End: 08-31-2023 Patient encounter procedure 08/31/2023 9:30 AM EDT Appointment [facility] [address] [place] [phone] Rebecca Buck MD [address] [place] [address] [facility] Start: 08-13-2023 End: 08-12-2024 Basic metabolic 1998 panel - Serum or Plasma Basic metabolic panel Lab Routine Calculus of ureter Expected: 08/13/2023 (Approximate), Expires: 08/12/2024 [facility] Comment on above: Expected: 08/13/2023 (Approximate), Expires: 08/12/2024 Start: 08-13-2023 End: 08-12-2024 CT Abdomen WO contrast CT abdomen pelvis wo IV contrast Imaging Routine Left flank pain Calculus of ureter Expected: 08/13/2023, Expires: 08/12/2024 [facility] Comment on above: Expected: 08/13/2023 , Expires: 08/12/2024 Start: 08-13-2023 End: 02-12-2024 PSA, Monitoring ([facility]) PSA, Monitoring ([facility]) Lab Routine Disease of prostate Expected: 08/13/2023 (Approximate), Expires: 02/12/2024 [facility] [employer] Work Phone: Comment on above: Expected: 08/13/2023 (Approximate), Expires: 02/12/2024 Start: 08-13-2023 End: 08-13-2023 Patient encounter procedure 08/13/2023 10:00 AM EDT Office Visit [facility] [address] [place] [address] Rebecca Buck MD [address] [place] [address] [facility] Start: 07-17-2023 Bacteria identified in Urine by Culture [facility] Start: 07-17-2023 [facility] Start: 07-16-2023 Measurement of substance [facility] Start: 05-07-2023 Medicare Advantage A nnual Wellness Visit Medicare Advantage Annual Wellness Visit [facility] Start: 03-02-2023 Creatinine measurement Creatinine Le carmela [facility] Start: 03-02-2023 Potassium measurement Potassium Leve l [facility] Start: 08-22-2022 Diabetes mellitus screening Diabetes Screening [facility] Start: 01-05-2022 Influenza vaccination [facility] Start: 12-23-2021 EPV, Provider: Wing Ritter, Status: Pen, Time: 9:30 AM EPV, Provider: Wing Ritter, Status: Pen, Time: 9:30 AM [facility]py[facility] ma Work Phone: Start: 12-05-2021 Influenza vaccination Flu vaccine (# 1) [facility] Start: 12-05-2021 Blood chemistry [facility] Work Phone: Start: 12-05-2021 Complete blood count [facility] Work Phone: Start: 12-05-2021 [facility] Work Phone: Start: 12-01-2021 [facility] Work Phone: Start: 08-05-2021 COVID-19 VACCINE (4 - Booster for Moderna series) COVID-19 VACCINE (4 - Booster for Moderna series) [facility] Start: 08-05-2021 COVID-19 Vaccine (4 - Booster for Pfizer series) COVID-19 Vaccine (4 - Booster for Pfizer series) [facility] Start: 06-01-2021 COVID-19 Vaccine (4 - Booster for Pfizer series) COVID-19 Vaccine (4 - Booster for Pfizer series) [facility] Start: 05-07-2021 ADVANCE DIRECTIVE DISCUSSION ADVANCE DIRECTIVE DISCUSSION [facility] Start: 08-11-2020 Screening for malign ant neoplasm of colon [facility] Start: 07-30-2020 Screening for malign ant neoplasm of colon [facility] Start: 01-20-2020 Echocardiography Echocardiogram [facility] [address] [place] Work Phone: Start: 01-06-2020 Influenza vaccination INFLUENZA (#1) [facility] Start: 12-04-2019 Annual Wellness Visi t (AWV) Annual Wellness Visit (AWV) [facility] Start: 12-04-2019 Creatinine monitoring Creatinine mon itoring [facility] Work Phone: Start: 12-04-2019 Hepatitis C screen Hepatitis C scree n [facility] Work Phone: Comment on above: Postponed from 05/06 (Patient Refused) Start: 12-04-2019 Potassium monitoring Potassium monit oring [facility] Work Phone: Start: 12-04-2019 Prostate specific an tigen measurement Prostate Specific Antigen (PSA) Screening or Monitoring [facility] Start: 12-04-2019 Shingles Vaccine (1 of 2) Day gles Vaccine (1 of 2) [facility] Work Phone: Comment on above: Postponed from 05/06 (Patient Refused) Start: 06-07-2019 Colon Cancer Screen FIT/FOBT [facility] Work Phone: Start: 08-14-2017 LIPID SCREEN LIPID SCREEN [facility] Start: 2017 ADVANCE DIRECTIVE DISCUSSION ADVANCE DIRECTIVE DISCUSSION [facility] Start: 2017 PNEUMOCOCCAL: 65+ (1 - PCV) PNEUMOCOCCAL: 65+ (1 - PCV) [facility] Start: 2017 PNEUMOVAX AGE 65 AND OVER WITH 5YR LOOKBACK (#1) PNEUMOVAX AGE 65 AND OVER WITH 5YR LOOKBACK (#1) [facility] Start: 04-14-2016 DIABETES SCREEN DIABETES SCREEN [facility] Start: 2012 RSV Immunization age d 60 or older (1 - 1-dose 60+ series) RSV Immunization aged 60 or older (1 - 1-dose 60+ series) [facility] Start: 2007 PROSTATE CANCER SCRE ENING DISCUSSION PROSTATE CANCER SCREENING DISCUSSION [facility] Start: 2002 Shingles vaccine (1 of 2) Day gles vaccine (1 of 2) [facility] Start: 2002 SHINGRIX VACCINE (1 of 2) DAY GRIX VACCINE (1 of 2) [facility] Start: 2002 Tuberculosis screening COLOREC MONIQUE CANCER SCREENING,SEE MODIFIER [facility] Start: 2002 Zoster Vaccines (1 of 2) Zoste r Vaccines (1 of 2) [facility] Start: 1997 COLOGUARD (FIT-DNA) COLOGUARD (FIT-D NA) [facility] Start: 1997 Colonoscopy COLONOSCOPY [facility] Start: 1997 COLORECTAL CANCER SCREENING COLORECTAL CANCER SCREENING [facility] Start: [address] COLONOGRAPHY [facility] Start: 1997 FECAL OCCULT BLOOD FECAL OCCULT BLOO D [facility] Start: 1997 Screening for malign ant neoplasm of colon [facility] Start: 1997 SIGMOIDOSCOPY SIGMOIDOSCOPY [facility] Start: 1987 Diabetes screen Diabetes screen [facility] Start: 1971 Urine microalbumin profile DTAP,TDAP,TD (1 - Tdap) [facility] Start: 1970 ANNUAL PCP TEAM TRANSPORT OPERATIONS INSPECTOR KEESHA DISEASE VISIT ANNUAL PCP TEAM CHRONIC DISEASE VISIT [facility] Start: 1970 BP CONTROLLED (<130/80) BP CONTROLLE D (<130/80) [facility] Start: 1970 Diabetes mellitus screening Diabetes Screening [facility] Start: 1970 HEPATITIS C SCREENING HEPATITIS C SC PHIL [facility] Start: 1970 Hepatitis C screening [facility] Start: 1964 Adult depression screening assessment DEPRESSION SCREENING [facility] Start: 1964 Depression Screen Depression Screen [facility] Start: 1962 Diabetic foot examination Diabetes: Foot Exam [facility] Start: 1962 Glaucoma screening Diabetes: R etinopathy Screening [facility] Start: 1962 Preventive dental service Diabetes: Dental Exam [facility] Start: 1952 Echocardiography [facility] Start: 1952 Hemoglobin A1c measurement Diabetes: Hemoglobin A1C [facility] Start: 1952 Lipid panel Lipid Panel [facility] Start: 1952 Screening for malign ant neoplasm of colon [facility] Bacteria identified in Urine by Culture Urine Culture [facility] Work Phone: End: 03-02-2022 CBC W Auto Differential panel - Blood CBC with Auto Differential Lab Routine One Time for 1 Occurrences starting 03/02/2022 until 03/02/2022 [facility] Work Phone: Comment on above: One Time for 1 Occur rences starting 03/02/2022 until 03/02/2022 End: 03-02-2022 Comprehensive metabolic 2000 panel - Serum or Plasma Comprehensive Metabolic Panel Lab STAT One Time for 1 Occurrences starting 03/02/2022 until 03/02/2022 [employer] [facility] Work Phone: Comment on above: One Time for 1 Occur rences starting 03/02/2022 until 03/02/2022 End: 09-06-2023 CT Abdomen [facility] Work Phone: Comment on above: Once for 1 Occurrenc es starting 09/06/2023 until 09/06/2023 End: 12-22-2021 Culture, Blood 2 Culture, Blood 2 Microbiology STAT One Time for 1 Occurrences starting 12/22/2021 until 12/22/2021 [facility] Work Phone: Comment on above: One Time for 1 Occur rences starting 12/22/2021 until 12/22/2021 End: 12-22-2021 Microscopic examination of blood, culture Culture, Blood Microbiology STAT One Time for 1 Occurrences starting 12/22/2021 until 12/22/2021 [facility] Work Phone: Comment on above: One Time for 1 Occur rences starting 12/22/2021 until 12/22/2021 Microscopic examinat ion of blood, culture Culture, Blood Microbiology STAT 12/22/2021 12:22 AM EDT [facility] Work Phone: Oxygen therapy [Mini [facility] Data Set] Initiate Oxygen Therapy Protocol Respiratory Care Routine As Needed until discontinued starting 10/21/2021 [facility] Comment on above: As Needed until disc ontinued starting 10/21/2021 Protime-INR Protime-INR Lab Routine Daily until discontinued starting 10/23/2021, 7 completed [facility] Work Phone: Comment on above: Daily until disconti nued starting 10/23/2021, 7 completed End: 03-02-2022 Protime-INR Protime-INR Lab Routine One Time for 1 Occurrences starting 03/02/2022 until 03/02/2022 [facility] Work Phone: Comment on above: One Time for 1 Occur rences starting 03/02/2022 until 03/02/2022 Spirometry panel Incentive stef metry Respiratory Care Routine Daily until discontinued starting 10/21/2021 [facility] Work Phone: Comment on above: Daily until disconti nued starting 10/21/2021 End: 10-21-2021 Wound ostomy eval Wound ostomy eval Wound Ostomy Routine One Time for 1 Occurrences starting 10/21/2021 until 10/21/2021 [facility] Work Phone: Comment on above: One Time for 1 Occur rences starting 10/21/2021 until 10/21/2021 [facility] NEGATED: Highlighted row has been ruled out! Planned Goals not documented [facility] Work Phone: Immunizations Immunization Date Immunization Notes Care Provider Christopher muñoz 03-04-2019 influenza, high dose seasonal, preservative-free [facility] Salas [facility] 12-03-2018 pneumococcal polysac charide vaccine, 23 valent Sarika Salas [facility] Work Phone: 01-25-2018 influenza, high dose seasonal, preservative-free Sarika Salas [facility] 02-14-2017 influenza, injectabl e, quadrivalent, contains preservative Sarika Salas [facility] 09-22-2016 pneumococcal conjuga te vaccine, 13 valent Sarika Salas [facility] Work Phone: 09-22-2016 tetanus toxoid, redu patrice diphtheria toxoid, and acellular pertussis vaccine, adsorbed Sarika Salas [facility] Work Phone: 02-24-2016 influenza, injectabl e, quadrivalent, contains preservative Sarika Josue [facility] 02-08-2015 influenza virus vacc ine, unspecified formulation Sarika Josue [facility] Work Phone: 02-04-2013 pneumococcal Conjuga te, unspecified formulation Sarika Josue [facility] Work Phone: Payers Date Payer Category Payer Unknown [id number] 12-24-2023 Self-pay 01-05-2022 Medicaid 01-05-2022 Medicare 01-05-2022 Medicare [id number] 10-05-2021 Medicaid [id number] 06-07-2021 Medicare UHC MEDICARE UHC DUAL COMPLETE HMO SNP [id number] 06/07/2021-Present [phone] [address] [place] [address] Medicare [id number] 06-07-2021 Medicare UHC MEDICARE [employer] DUAL COMPLETE [id number] 06/07/2021-Present [phone] [address] [place] [address] [id number] [id number] 11-05-2019 Medicare UHC AARP MEDICAR E [facility] AARP MEDICARE HMO [id number] 11/05/2019-Present HMO [id number] [id number] 07-06-2015 Medicare UHC MEDICARE UHC MEDICARE COMPLETE xxxxxxxxx 2015-Present xxxxxxxxx [id number] [id number] 1952 Unknown [id number] 2.16.840.1.935428.3.579. 2.668 1952 Unknown [id number] 2.16.840.1.287362.3.579. 2.668 1952 Unknown [id number] 2.16.840.1.550299.3.579. 2.668 1952 Unknown [id number] 2.16.840.1.168353.3.579. 2.[birth year]06-1950 Unknown [id number] 2.16.840.1.392554.3.579. 2.6605-06-1950 Unknown [id number] 2.840.1.315407.3.579. 2.8 1952 Unknown [id number] 2.840.1.583261.3.579. 2.668 Private Health Insurance Unknown Unknown [id number] 2.840.1.944975.3.579. 2.462 Unknown [id number] 2.840.1.179743.3.579. 2.462 Unknown [id number] 2.16840.1.987580.3.579. 2.462 Unknown [id number] 2.16840.1.613545.3.579. 2.462 Unknown [id number] 2.16840.1.453150.3.579. 2.462 Unknown [id number] 2.16840.1.374758.3.579. 2.462 Unknown [id number] 2.16.840.1.071357.3.579. 2.462 Unknown [id number] 2.16.840.1.362331.3.579. 2.462 Unknown [id number] 2.16.840.1.383564.3.579. 2.462 Unknown [id number] 2.16.840.1.750440.3.579. 2.462 Unknown [id number] 2.16.840.1.597133.3.579. 2.462 Unknown [id number] 2.16.840.1.178220.3.579. 2.462 Unknown [id number] 2.16.840.1.313804.3.579. 2.462 Unknown [id number] 2.16.840.1.867713.3.579. 2.462 Unknown [id number] 2.16.840.1.408709.3.579. 2.462 Unknown [id number] 2.16.840.1.530235.3.579. 2.462 Unknown [id number] 2..840.1.399166.3.579. 2.462 Unknown [id number] 2.840.1.034802.3.579. 2.462 Unknown [id number] 2.840.1.038029.3.579. 2.462 Unknown [id number] 2.840.1.031090.3.579. 2.462 Unknown [id number] 2.840.1.196441.3.579. 2.462 Unknown [id number] 2.840.1.855017.3.579. 2.462 Unknown [id number] 2.840.1.386181.3.579. 2.462 Unknown [id number] 2.840.1.157315.3.579. 2.462 Unknown [id number] 2.840.1.088619.3.579. 2.462 Unknown [id number] 2.840.1.194730.3.579. 2.462 Unknown [id number] 2.840.1.127106.3.579. 2.462 Unknown [id number] 2.16840.1.072940.3.579. 2.462 Unknown [id number] 2.16.840.1.683394.3.579. 2.462 Unknown [id number] 2.840.1.086144.3.579. 2.462 Unknown [id number] 2.16.840.1.395854.3.579. 2.462 Unknown [id number] 2.16.840.1.154461.3.579. 2.462 Unknown [id number] 2.16.840.1.163752.3.579. 2.462 Unknown [id number] 2.16.840.1.316112.3.579. 2.462 Unknown [id number] 2.16840.1.181448.3.579. 2.462 Unknown [id number] 2.16840.1.652994.3.579. 2.462 Unknown [id number] 2.16840.1.158193.3.579. 2.462 Unknown [id number] 2.840.1.259932.3.579. 2.462 Unknown [id number] 2.840.1.529150.3.579. 2.462 Unknown [id number] 2.16840.1.356388.3.579. 2.462 Unknown [id number] 2.16840.1.117406.3.579. 2.462 Unknown [id number] 2.16840.1.960634.3.579. 2.462 Unknown [id number] 2.840.1.044639.3.579. 2.462 Unknown [id number] 2.16.840.1.584050.3.579. 2.462 Unknown [id number] 2.16.840.1.115764.3.579. 2.462 Unknown [id number] 2.16.840.1.600410.3.579. 2.462 Unknown [id number] 2.16.840.1.487543.3.579. 2.462 Unknown [id number] 2.16840.1.026433.3.579. 2.462 Unknown [id number] 2.16.840.1.292261.3.579. 2.462 Unknown [id number] 2.16.840.1.219002.3.579. 2.462 Unknown [id number] 2.16.840.1.377289.3.579. 2.462 Unknown [id number] 2.16.840.1.972068.3.579. 2.462 Unknown [id number] 2.16.840.1.179247.3.579. 2.462 Unknown [id number] 2.16.840.1.177294.3.579. 2.462 Unknown [id number] 2.16.840.1.736056.3.579. 2.462 Unknown [id number] 2.16.840.1.341334.3.579. 2.462 Unknown [id number] 2.16.840.1.757734.3.579. 2.462 Unknown [id number] 2.16.840.1.314325.3.579. 2.462 Unknown [id number] 2.16.840.1.408822.3.579. 2.462 Unknown [id number] 2.16.840.1.540689.3.579. 2.462 Unknown [id number] 2.16.840.1.477814.3.579. 2.462 Unknown [id number] 2.16.840.1.222595.3.579. 2.462 Unknown [id number] 2.16.840.1.902539.3.579. 2.462 Unknown [id number] 2.16.840.1.590102.3.579. 2.462 Unknown [id number] 2.16.840.1.539012.3.579. 2.462 Unknown [id number] 2.16.840.1.425543.3.579. 2.462 Unknown [id number] 2.16.840.1.329749.3.579. 2.462 Unknown [id number] 2.840.1.484175.3.579. 2.462 Unknown [id number] 2.840.1.897223.3.579. 2.462 Unknown [id number] 2.840.1.594540.3.579. 2.462 Unknown [id number] 2.840.1.916961.3.579. 2.462 Unknown [id number] 2.840.1.509057.3.579. 2.462 Unknown [id number] 2.840.1.625753.3.579. 2.462 Unknown [id number] 2.840.1.687630.3.579. 2.462 Unknown [id number] 2.840.1.253676.3.579. 2.462 Unknown [id number] .840.1.699755.3.579. 2.462 Unknown [id number] .840.1.454153.3.579. 2.462 Unknown [id number] .840.1.665864.3.579. 2.462 Unknown [id number] 2.840.1.074729.3.579. 2.462 Unknown 14870574 840.1.679260.3.579. 2.462 Unknown 09476616 .840.1.941700.3.579. 2.462 Unknown [id number] .840.1.522891.3.579. 2.462 Unknown [id number] 2.840.1.560081.3.579. 2.462 Unknown 15602697 2.840.1.769137.3.579. 2.462 Unknown [id number] 2.840.1.760646.3.579. 2.462 Unknown [id number] 2.16.840.1.470989.3.579. 2.462 Unknown [id number] 2.16.840.1.453206.3.579. 2.462 Unknown 26010820 2.16.840.1.660877.3.579. 2.462 Unknown 79397023 2.16.840.1.818410.3.579. 2.462 Unknown [id number] 2.16.840.1.829671.3.579. 2.462 Unknown [id number] 2.16.840.1.438167.3.579. 2.462 Unknown [id number] 2.16840.1.319641.3.579. 2.462 Unknown [id number] 2.840.1.016191.3.579. 2.462 Unknown [id number] 2.840.1.017979.3.579. 2.462 Unknown 10302918 2.840.1.509308.3.579. 2.462 Unknown [id number] 2.840.1.506891.3.579. 2.462 Unknown [id number] 2.16840.1.191132.3.579. 2.462 Unknown 49792871 2.16840.1.490346.3.579. 2.462 Unknown [id number] 2.840.1.070713.3.579. 2.462 Unknown 12429136 2.16.840.1.431902.3.579. 2.462 Unknown [id number] 2.16.840.1.392792.3.579. 2.462 Unknown [id number] 2.16.840.1.029984.3.579. 2.462 Unknown [id number] 2.16.840.1.389068.3.579. 2.462 Unknown [id number] 2.16840.1.503733.3.579. 2.462 Unknown [id number] 2.16.840.1.560964.3.579. 2.462 Unknown [id number] 2.16.840.1.692974.3.579. 2.462 Unknown [id number] 2.16.840.1.132006.3.579. 2.462 Unknown [id number] 2.16.840.1.971584.3.579. 2.462 Unknown [id number] 2.16.840.1.171826.3.579. 2.462 Unknown [id number] 2.16.840.1.294744.3.579. 2.462 Unknown [id number] 2.16.840.1.215801.3.579. 2.462 Unknown [id number] 2.16.840.1.481392.3.579. 2.462 Unknown [id number] 2.16.840.1.470774.3.579. 2.462 Unknown [id number] 2.16.840.1.951555.3.579. 2.462 Social History Date Type Detail Facility Start: 05-23-2018 End: 05-19-2019 Tobacco smoking status NHIS Former smoker [facility] Work Phone: History of tobacco use Cigar Smoker [facility] Work Phone: Start: 05-19-2019 End: 08-13-2023 Cigarettes smoked current (pack per day) - Reported [facility] Work Phone: Start: 05-19-2019 End: 08-13-2023 Alcohol intake Current non-drinker of alcohol (finding) [facility] Work Phone: Start: 12-03-2018 History SDOH Physica l Activity DPW 7 [facility] Work Phone: Start: 12-03-2018 History SDOH Physica l Activity MPS 9 [facility] Work Phone: Start: 12-03-2018 End: 10-31-2021 History SDOH Stress 1 [facility] Work Phone: Start: 12-03-2018 History SDOH Financial 5 [facility] Work Phone: Start: 12-03-2018 History SDOH Transpo rt Med 2 [facility] Work Phone: Start: 1950 Sex Assigned At Not on file [facility] Work Phone: Start: 08-13-2012 End: 11-13-2019 Tobacco smoking status NHIS Never smoker [facility] Start: 05-23-2018 End: 11-13-2019 Tobacco use and exposure Never used [facility] Start: 11-13-2019 History SDOH Alcohol Std Drinks 98 [facility] Start: 10-11-2021 End: 02-15-2022 Exposure to SARS-CoV-2 (event) Not sure [facility] Start: 1950 Sex Assigned At Male [facility] History of tobacco use Current smoker [facility] Work Phone: History of tobacco use Cigarette Smoker [facility] Work Phone: Start: 10-31-2021 End: 08-13-2023 Tobacco use panel [facility] Tobacco smoking stat us UTIS Unknown if ever smoked [facility] Work Phone: Start: 07-11-2024 End: 08-21-2024 Sex Male (finding) [facility] NEGATED: Highlighted row - - [facility] Work Phone: Medical Equipment Procedure Code Equipment Code Equipment Origin al Text Equipment Identifier Dates Kit Bactiseal Woodard maria guadalupe Silicone Barium Catheter Shunt Sterile - [id number] Start: 06-08-2021 Catheter Bactise al 14cm External Drainage Csf Sterile Latex Free - [id number] Start: 08-05-2021 Valve Certas Shannon nt Inline - [id number] Start: 06-08-2021 Valve Certas Shannon nt Inline - [id number] Start: 08-05-2021 Valve Certas Shannon nt Inline - [id number] Start: 08-09-2021 Goals Date Patient Goal [...] status health issues are not documented Disease [facility] Work Phone: Mental Status Date Assessment Result Facility NEGATED: Highlighted row Cognitive function [Interpretation] Cognitive status health issues are not documented Disease [facility] Work Phone: Clinical [...] Hydrocephalus, adult (CMS/HCC) (HCC) Kidney stone Neuropathy DIRECTOR CARDIAC (ventriculoperitoneal) shunt status Past Surgical History: Procedure [...] 09/13/23 12:05 PM documented in this encounter [facility] 08-31-2023 Note S: Shanthi from [facility] spoke with [facility] nurse regarding voiding trial procedure. B: Onset of symptoms/concern today. A: [facility] is calling to make sure [...] Protocols used: Information Only Call - No [facility]23 Telephone encounter Note S: Shanthi from [facility] spoke with [facility] nurse regarding voiding trial procedure. B: Onset [...] Protocols used: Information Only Call - No Uojfwy-HKEPL-QY [facility] 08-31-2023 Miscellaneous Notes S: Shanthi from [facility] [place] spoke with [facility] nurse regarding voiding trial procedure. B: Onset [...] Protocols used: Information Only Call - No Gviabz-IYGVF-QM documented in this encounter [facility] 08-29-2023 Telephone encounter Note Lm on daughters vm to advise them to call the number for the storage manager to get clarification, and to call back with further questions [facility] 08-29-2023 Miscellaneous Notes Lm on greg vm to advise them to call the number for the storage manager to get clarification, and to call back with further questions Yes, they will need to call the number given to them. Please advise Name of caller: Shanthi Contact phone number: [phone] Relationship to Patient: patient Provider: MD Quinn Practice: [facility] Chief Complaint/Reason for Call: Shanthi called in to see if Pt would need to come by cot for his CT appt due to Pt being Boaz. TEA did reach out to office and was advised to reach out to Central Scheduling. CAC did reach out to CS and was advised to let Shanthi know that she would need to reach out to call Maury Avila at [facility] [phone] to get clarifications. CAC did reach back out to [facility] and advised and provider Maury's #. Please advise Best time of day caller can be reached: Any Patient advised that office/PCP has 24-48 business hours to return their call: N/A documented in this encounter [facility] [employer] 08-27-2023 Telephone encounter Note Yes, they will need to call the number given to them. [facility] 08-27-2023 Telephone encounter Note Please advise [facility] [facility] 08-21-2023 Telephone encounter Note Name of caller: Shanthi Contact phone number: [phone] Relationship to Patient: patient Provider: MD Quinn Practice: [facility] Chief Complaint/Reason for Call: Shanthi called in to see if Pt would need to come by cot for his CT appt due to Pt being Boaz. TEA did reach out to office and was advised to reach out to Central Scheduling. TEA did reach out to CS and was advised to let Shanthi know that she would need to reach out to call Maury Cedeño Roll Setter at [facility] [phone] to get clarifications. CAC did reach back out to [facility] and advised and provider Maury's #. Please advise Best time of day caller can be reached: Any Patient advised that office/PCP has 24-48 business hours to return their call: N/A [facility] 08-13-2023 History of Present illness Narrative [...] Hydrocephalus, adult (CMS/HCC) (HCC) Kidney stone Neuropathy DIRECTOR CARDIAC (ventriculoperitoneal) shunt status Past Surgical History: Past [...] 08/13/23 10:45 AM documented in this encounter [facility] 06-25-2023 Telephone encounter Note [facility] called in stating appt scheduled 07/10/23 [place] has to be made further out, pt being transported by cot. Changed appt to 08/13/23 per [facility] only avail time for transport, first avail with DR Buck at 10:00 AM. [facility] 06-25-2023 Miscellaneous Notes [facility] called in stating appt scheduled 07/10/23 [place] has to be made further out, pt being transported by cot. Changed appt to 08/13/23 per [facility] only avail time for transport, first avail with DR Buck at 10:00 AM. documented in this encounter [facility] 12-22-2021 Hospital Discharge instructions SANIA Lou - 12/22/2021 2:32 AM EDT Please take medication as prescribed Please follow up with your Physicians as instructed in this discharge paperwork Thank you for choosing [facility] I appreciate your patience Please return to the emergency department if your symptoms worsen, or new symptoms develop as discussed documented in this encounter [facility] Work Phone: 10-29-2021 Note Hospitalist Discharg e [...] abnormality and previous indwelling tubing history of DIRECTOR CARDIAC shunt ? #?Bilateral lower extremity wounds-wound care [...] neurologist. [facility] [place] [facility] the [place] [facility] and his Coumadin was continued, dosing instructions were given. Wound care was given for his lower extremity wounds. Consults: neurology, vascular surgery, gastroenterology Discharge Instructions: Diet: No diet orders on file Activity: as tolerated Disposition: Patient discharged in stable condition to [place] [facility] . Greater than 30 minutes spent discharging [...] Your Medications These medications were sent to [address] - P [phone] - F [phone] [address] [facility] [id number] ? levETIRAcetam 750 MG tablet ? warfarin 6 MG tablet Recommended Follow-up: No follow-up provider specified. Complexity of Follow up: [] Moderate Complexity: follow up within 7-14 calendar days (61716) [x] Severe Complexity: follow up within 7 calendar days (16466) Follow up Testing, Pending results or Referrals [...] Increased fatigue or (more content not included)... [facility] 10-29-2021 Hospital Discharge instructions Fabi Subramanian RN - 10/29/2021 12:03 PM EDT Continuity of Care Form Patient Name: Andrew Sifuentes : 1950 Admit date: 10/21/2021 Discharge date: 10/29/2021 Code Status Order: Full Code Advance Directives: Admitting Physician: May Cash MD PCP: MONIKA STALEY MD Discharging Nurse: Fabi [facility] Hospital Unit/Room#: 146/1461 Discharging Unit Emergency Contact: Extended Emergency Contact Information Primary Emergency Contact: Triny Damon Address: [address] [place] [address] [place] [address] [facility] Relation: Brother/Sister Secondary Emergency Contact: Melissa Sifuentes Mobile Relation: Child Preferred language: Qatari Past Surgical History: Past Surgical History: Procedure Laterality Date BRAIN SURGERY CHOLECYSTECTOMY COLONOSCOPY HERNIA REPAIR Immunization History: Immunization History Administered Date(s) Administered Influenza Virus Vaccine 02/08/2015 Influenza, High Dose (Fluzone 65 yrs and older) 01/25/2018, 03/04/2019 Influenza, Quadv, IM, (6 mo and older Fluzone, Flulaval, Fluarix and 3 yrs and older Afluria) 02/24/2016, 02/14/2017 Pneumococcal Conjugate 13-valent (Meizhvo32) 09/22/2016 Pneumococcal Conjugate Vaccine 02/04/2013 Pneumococcal Polysaccharide (Iofaczwfi49) 12/03/2018 Tdap (Boostrix, Adacel) 09/22/2016 Active Problems: Patient Active Problem List Diagnosis Code Flank pain, acute R10.9 Night muscle spasms M62.838 Chronic fatigue R53.82 Hydrocephalus ([facility]) G91.9 Neuropathy G62.9 Erectile dysfunction N52.9 Fluid retention in tissues R60.9 Hyperlipidemia E78.5 Morbidly obese ([facility]) E66.01 Leg wound, left S81.802A DVT, lower extremity, recurrent, unspecified laterality ([facility]) I82.409 Moderate malnutrition ([facility]) E44.0 History of seizures Z87.898 Isolation/Infection: Isolation [...] Dependent Dressing Dependent Toileting Dependent Feeding Dependent Cruise Director Dependent Med Delivery whole in [facility] Wound Care Documentation and Therapy: Wound [...] Q4H prn SOB Oxygen Therapy: {Therapy; copd oxygen:16776} Ventilator: { CC Vent List:[id number]} Rehab Therapies: {THERAPEUTIC INTERVENTION:[id number]} Weight Bearing Status/Restrictions: Weight Bearing - Patient was bedbound in hospital Other Medical Equipment (for information only, NOT a DME order): wheelchair, hospital bed, and Boaz Other Treatments: Patient's personal belongings (please select all that are sent with patient): {[facility] DME Belongings:[id number]} RN SIGNATURE: CASE MANAGEMENT/SOCIAL WORK SECTION Inpatient Status Date: Readmission Risk Assessment Score: Readmission Risk Risk of Unplanned Readmission: 11 Discharging to Facility/ Agency Name: Address: Phone: Fax: Dialysis Facility (if applicable) Name: Address: Dialysis Schedule: Phone: Fax: Staff Nurse/Housekeeping Coordinator signature: {Esignature:[id number]} PHYSICIAN SECTION Prognosis: Fair Condition at Discharge: Stable Rehab Potential (if transferring to Rehab): Fair Recommended Labs or Other Treatments After Discharge: Coumadin based on INR target range 2-3, Coumadin 6 mg on 10/30 and 10/31, recheck INR 11/01 and notify physician, ideally should be on 6 mg alt with 7 mg daily, PT/OT, follow-up with neurologist in 1 month, continue [facility] Physician Certification: I certify the above information and transfer of Andrew Sifuentes is necessary for the continuing treatment of the diagnosis listed and that he requires [facility] for greater than 30 days. Update Admission H&P: No change in H&P PHYSICIAN SIGNATURE: documented in this encounter [facility] Work Phone: 10-29-2021 History of Present illness Narrative [facility] Anticoagulation Management Service ([facility]) Inpatient Warfarin Consult HPI: Andrew Sifuentes is a 71 y.o. 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 Pt was [...] PharmD IRVIN Consult Service is available daily [phone]. Please search for covering pharmacist name via [employer] or Groups --> Pharmacy --> Anti-Coagulation Consult Pharmacist (on 3rd page). If no response via [employer], please page [phone]. Patient seen and chart reviewed. Afebrile. Adequate oxygenation on room air. Baseline mentation. Exam stable X 5 systems. Hgb 11.0 WBC 10.0 K Platelets 344 K Creatinine 0.71 GFR > 90 cc/min. NSE 20.8 with hemolysis. PT 30.8 INR 3.1 Conversion to Warfarin has been completed. APS w/u pending. Discussed with patient's staff nurse. Will continue to monitor. Total visit time > 35 minutes. Neurology Attending Progress Note SUBJECTIVE: No issues overnight. Care discussed with nursing staff/patient's medical team MRI brain reported nothing acute. Assessment and Plan: 71 yr M with PMH obstructive hydrocephalus s/p DIRECTOR CARDIAC shunt in 1987, needing multiple revisions and [...] normal limits and both old and new DIRECTOR CARDIAC shunt tubing noted. At present patient is awake, follows commands, was able to tell his name, and that he was in hospital but not oriented to time. Per documentation patient had NCSE in May 2021, was on Vimpat, but it was discontinued as there was no evidence of recurrent seizures in july 2021 by Neurology at [facility], per daughter patient was on Dilantin for 31 yrs. Per daughter patient had seizures in the past and also felt he had staring episodes 10/26/2021 morning. Per daughter patient has been essentially bed bound in [place] since May 2021 but prior to that was independent Impressions: H/O hydrocephalus H/O seizure, H/O stroke Acute DVT H/O PE Plan: -MRI brain w/o contrast nothing acute -CT head done during this admission reported no hydrocephalus, ventricles within normal limits and both old and new DIRECTOR CARDIAC shunt tubing noted -EEG mild to moderate slow, no seizures reported -Labs reviewed -Hydrocephalus management per Neurosurgery. At present patient does not have hydrocephalus on CT head done this admission. No Neurosurgery services available as inpatient in [facility]. Patient can follow up with Neurosurgery as outpatient and if ends up needing inpatient neurosurgery requirement then may need to be transferred to [facility]. -No clear clinical signs of ventriculitis. Defer evaluation to primary medical team/ID as deemed necessary. -Discussed with daughter in detail on . She was concerned that patient has had h/o seizures, and he has been taken off seizure medication, per note documentation patient had NCSE in May 2021 when he was admitted to [facility]. Per daughter she would want patient [...] the weekend, primary hospitalist team to contact [facility] at [facility] for any weekend neurological issues related to the patient and if need to discuss any neurological test results/findings. Other deal in house Neurology coverage will be available from Sunday at [facility] and please call [facility] back on Sunday if need further assistance. This note has been generated using [employer] dictation software. It may contain incorrect words, punctuation's and spellings that were not noted in the review of the note prior to signing. This note has been generated using [employer] dictation software. It may contain incorrect words, [...] eGFR >90.0 >60 mL/min EGFR IF NonAfrican Qatari >90.0 >60 mL/min Calcium 9.1 8.4 - [...] 26 AST 24 BILITOT 0.4 LABALBU 3.7 @BRIEFLAB([facility]) ABGs: )No results for input(s): PH, PO2, [...] Radiology ACCESSION EXAM DATE/TIME PROCEDURE ORDERING PROVIDER [id number] 10/21/2021 15:30 EDT CR Calcaneus 2+ Views [id number] -SHRUTHI MALIK Left CPT code 38661 Reason For Exam (CR Calcaneus 2+ Views [...] Result Date: 10/26/2021 [id number] Tomography ACCESSION EXAM DATE/TIME PROCEDURE ORDERING PROVIDER [id number] 10/26/2021 11:[address] Head or Brain w/o JUNIE PINEDA SARINA Contrast CPT code 74786 Reason For Exam (CT Head or Brain w/o Contrast) hydrocephalus. thank you Report CLINICAL INFORMATION: Hydrocephalus. Shunt. 3 mm axial cuts through the head are obtained without IV contrast. The examination is compared to a previous study dated 06/29/2014. FINDINGS: Old DIRECTOR CARDIAC shunt tubing is noted bilaterally. The new [...] are clear. IMPRESSION: 1. Old and new DIRECTOR CARDIAC shunt tubing. 2. No hydrocephalus. 3. Atrophy [...] Imaging ACCESSION EXAM DATE/TIME PROCEDURE ORDERING PROVIDER [id number] 10/23/2021 11:08 EDT MRI Abdomen w/o Contrast WING SRIVASTAVA CPT code 38915 Reason For Exam (MRI Abdomen w/o Contrast) [...] Result Date: 10/21/2021 [id number] Nuclear Medicine ACCESSION EXAM DATE/TIME PROCEDURE ORDERING PROVIDER [id number] 10/21/2021 07:55 EDT NM Pulmonary Perfusion [id number] MAY BOGGS w/ Vent Aerosol CPT code 78431 A9567 Reason For Exam (NM Pulmonary Perfusion [...] Brachial Indices Extremity Bilateral Result Date: 10/22/2021 [facility] --- Ankle Brachial Index Report Patient DO MariaB: 1950 Study 10/21/2021 Name: Andrew Gonzalez (71yrs) Date: Age: 71 Account: [id number] Gender: M Loc: 444W BP: Ordering Physician: Shruthi Malik Creative Services Designer: Rody Cross RDMS, RVT Interpreting Physician: Carina Call --- Location: [facility] --- Indications: Foot wounds. Originally ordered as a full PVR. Ordering HARDBOARD FACTORY WORKER had to modify the order to ABIs [...] supine position. Images were obtained using a [employer] vascular ultrasound machine. --- Arterial pressure indices: [...] EXTREMITY BILATERAL VENOUS DUPLEX Result Date: 10/21/2021 [facility] --- Lower Extremity Venous Duplex Report Patient Maria, : 1950 Study 10/21/2021 Name: Andrew Gonzalez (71yrs) Date: Age: 71 Account: [id number] Gender: M Loc: 444 BP: Ordering Physician: May Cash Creative Services Designer: Rody Cross RDMS, RVT Interpreting Physician: Carina Call --- Location: [facility] --- Indications: Bilateral lower leg edema. [...] supine position. Images were obtained using a [employer] vascular ultrasound machine. --- Venous flow and [...] Radiology ACCESSION EXAM DATE/TIME PROCEDURE ORDERING PROVIDER [id number] 10/21/2021 08:16 EDT CR Chest 1 View Frontal [id number] MAY BOGGS CPT code 01278 Reason For Exam (CR Chest 1 View [...] Result Date: 10/22/2021 [id number] Computed Tomography ACCESSION EXAM DATE/TIME PROCEDURE ORDERING PROVIDER [id number] 10/22/2021 13:[address] Abdomen/Pelvis (No SRIVASTAVA, WING PO, No IV) CPT code 46120 Reason For Exam (CT Abdomen/Pelvis (No PO, [...] Imaging ACCESSION EXAM DATE/TIME PROCEDURE ORDERING PROVIDER [id number] 10/27/2021 13:14 EDT MRI Brain w/o Contrast UNASSIGNED, UNASSIGNED CPT code 07263 Reason For Exam (MRI Brain w/o Contrast) stroke Patient has DIRECTOR CARDIAC shunt in place, please follow Radiology protocol [...] included. Hospitalist Progress Note 10/28/2021 11:37 AM [phone]: Please page me @ [phone] for patient care issues. [phone]: Please page embroidery specialist for any issues@ night Subjective: Admit Date: [...] abnormality and previous indwelling tubing history of DIRECTOR CARDIAC shunt # Bilateral lower extremity wounds-wound care [...] Services This report was created using the TheShelf Speaking voice-activated system. Despite prompt dictation and careful editorial review, there may be subtle contextual errors in this report, due to misrecognition of the spoken word. Speech Language Pathology Facility/Department: [facility] Dysphagia Treatment Note NAME: Andrew [...] and gloves were worn throughout this session. [facility] Anticoagulation Management Service ([facility]) Inpatient Warfarin Consult HPI: Andrew Sifuentes is a 71 y.o. 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 Pt was [...] drug interactions and adjust dose accordingly. 3. [facility] will manage while inpatient and sign off at discharge. Patient resides in a SNF. 4. Will provide warfarin education including [facility] warfarin booklet, if appropriate. Brionna Le, PharmD candidate Josie Gupta RPh, PharmD [facility] Consult Service is available daily [phone]. Please search for covering pharmacist name via Lingoda or Groups --> Pharmacy --> Anti-Coagulation Consult Pharmacist (on 3rd page). If no response via Lingoda, please page [phone]. Follow up b/l foot wounds. No new [...] yr M with PMH obstructive hydrocephalus s/p DIRECTOR CARDIAC shunt in 1987, needing multiple revisions and [...] normal limits and both old and new DIRECTOR CARDIAC shunt tubing noted. At present patient is awake, follows commands, was able to tell his name, and that he was in hospital but not oriented to time. Per documentation patient had NCSE in May 2021, was on Vimpat, but it was discontinued as there was no evidence of recurrent seizures in july 2021 by Neurology at [facility], per daughter patient was on Dilantin for 31 yrs. Per daughter patient had seizures in the past and also felt he had staring episodes 10/26/2021 morning. Per daughter patient has been essentially bed bound in [place] since May 2021 but prior to that was independent Impressions: H/O hydrocephalus H/O seizure, H/O stroke Acute DVT H/O PE Plan: -MRI brain w/o contrast. Per daughter she would like MRI brain done to evaluate for strokes -CT head done during this admission today reported no hydrocephalus, ventricles within normal limits and both old and new DIRECTOR CARDIAC shunt tubing noted -EEG mild to moderate slow, no seizures reported -Labs reviewed -Hydrocephalus management per Neurosurgery. At present patient does not have hydrocephalus on CT head done this admission. No Neurosurgery services available as inpatient in [facility]. Patient can follow up with Neurosurgery as outpatient and if ends up needing inpatient neurosurgery requirement then may need to be transferred to [facility]. -No clear clinical signs of ventriculitis. Defer evaluation to primary medical team/ID as deemed necessary. -Discussed with daughter in detail on . She was concerned that patient has had h/o seizures, and he has been taken off seizure medication, per note documentation patient had NCSE in May 2021 when he was admitted to [facility]. Per daughter she would want patient [...] interim. This note has been generated using Flipswap dictation software. It may contain incorrect words, punctuation's and spellings that were not noted in the review of the note prior to signing. This note has been generated using Flipswap dictation software. It may contain incorrect words, [...] LABALBU, AMYLASE, LIPASE in the last 72 hours.@BRIEFLAB([facility]) ABGs: )No results for input(s): PH, PO2, [...] Radiology ACCESSION EXAM DATE/TIME PROCEDURE ORDERING PROVIDER [id number] 10/21/2021 15:30 EDT CR Calcaneus 2+ Views [id number] -SHRUTHI MALIK CPT code 77976 Reason For Exam (CR Calcaneus 2+ Views [...] Tomography ACCESSION EXAM DATE/TIME PROCEDURE ORDERING PROVIDER [id number] 10/26/2021 11:[address] Head or Brain w/o JUNIE PINEDA, SARINA Contrast CPT code 59428 Reason For Exam (CT Head or Brain w/o Contrast) hydrocephalus. thank you Report CLINICAL INFORMATION: Hydrocephalus. Shunt. 3 mm axial cuts through the head are obtained without IV contrast. The examination is compared to a previous study dated 06/29/2014. FINDINGS: Old DIRECTOR CARDIAC shunt tubing is noted bilaterally. The new [...] are clear. IMPRESSION: 1. Old and new DIRECTOR CARDIAC shunt tubing. 2. No hydrocephalus. 3. Atrophy and evidence of small-vessel ischemic disease. 4. No CT evidence of an acute intracranial process. Report Dictated on --- Final --- Dictating Physician: MD SOLANO JEFFREY Signed Date and Time: 10/26/2021 11:42 am Signed by: MD SOLANO JEFFREY Transcribed Date and Time: 10/26/2021 11:43 MRI ABDOMEN WO CONTRAST Result Date: 10/23/2021 [id number] Imaging ACCESSION EXAM DATE/TIME PROCEDURE ORDERING PROVIDER [id number] 10/23/2021 11:08 EDT MRI Abdomen w/o Contrast WING SRIVASTAVA CPT code 40942 Reason For Exam (MRI Abdomen w/o Contrast) [...] Result Date: 10/21/2021 [id number] Nuclear Medicine ACCESSION EXAM DATE/TIME PROCEDURE ORDERING PROVIDER [id number] 10/21/2021 07:55 EDT NM Pulmonary Perfusion [id number] -MAY CASH w/ Vent Aerosol CPT code 53631 A9567 Reason For Exam (NM Pulmonary Perfusion [...] Brachial Indices Extremity Bilateral Result Date: 10/22/2021 [facility] --- Ankle Brachial Index Report Patient DO MariaB: 1950 Study 10/21/2021 Name: Andrew Gonzalez (71yrs) Date: Age: 71 Account: [id number] Gender: M Loc: 444W BP: Ordering Physician: Shruthi Malik Creative Services Designer: Rody Cross RDMS, RVT Interpreting Physician: Carina Call --- Location: [facility] --- Indications: Foot wounds. Originally ordered as a full PVR. Ordering HARDBOARD FACTORY WORKER had to modify the order to ABIs [...] supine position. Images were obtained using a Magentos vascular ultrasound machine. --- Arterial pressure indices: [...] EXTREMITY BILATERAL VENOUS DUPLEX Result Date: 10/21/2021 [facility] --- Lower Extremity Venous Duplex Report Patient DO MariaB: 1950 Study 10/21/2021 Name: Andrew Gonzalez (71yr) Date: Age: 71 Account: [id number] Gender: M Loc: 444 BP: Ordering Physician: May Cash Creative Services Designer: Rody Cross RDMS, RVT Interpreting Physician: Carina Call --- Location: [facility] --- Indications: Bilateral lower leg edema. [...] supine position. Images were obtained using a Magent[employer] vascular ultrasound machine. --- Venous flow and [...] Radiology ACCESSION EXAM DATE/TIME PROCEDURE ORDERING PROVIDER [id number] 10/21/2021 08:16 EDT CR Chest 1 View Frontal [id number] MAY CASH CPT code 51753 Reason For Exam (CR Chest 1 View [...] Tomography ACCESSION EXAM DATE/TIME PROCEDURE ORDERING PROVIDER [id number] 10/22/2021 13:[address] Abdomen/Pelvis (No SRIVASTAVA, WING PO, No IV) CPT code 56858 Reason For Exam (CT Abdomen/Pelvis (No PO, [...] 12:48 PM Consults Speech Language Pathology Facility/Department: [facility] Dysphagia Treatment Note NAME: Andrew [...] reactivity and state change, indicative of a wdvv-[id number] diffuse encephalopathy of nonspecific etiology. There are [...] Easy to chew diet/cut up. NEVILLE Jones M.A.CCC/WAREHOUSE GENERAL LABORER Time session ended: 1156 Total session minutes: 23 Images from the original note were not included. Hospitalist Progress Note 10/27/2021 10:40 AM [phone]: Please page me @ [phone] for patient care issues. [phone]: Please page embroidery specialist for any issues@ night Subjective: Admit Date: [...] Services This report was created using the Reflect Systems-activated system. Despite prompt dictation and careful editorial review, there may be subtle contextual errors in this report, due to misrecognition of the spoken word. [facility] Anticoagulation Management Service ([facility]) Inpatient Warfarin Consult HPI: Andrew Sifuentes is a 71 y.o. 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 Pt was [...] drug interactions and adjust dose accordingly. 3. [facility] will manage while inpatient and sign off at discharge. Patient resides in a SNF. 4. Will provide warfarin education including [facility] warfarin booklet, if appropriate. Thank you for this consult Brionna Le, PharmD candidate Josie Gupta RPh, PharmD [facility] Consult Service is available daily [phone]. Please search for covering pharmacist name via uShipServe or Groups --> Pharmacy --> Anti-Coagulation Consult Pharmacist (on 3rd page). If no response via PerfectServe, please page [phone]. I cleaned under patient's finger nails with soft wipe to remove debrib Also placed dr vladislav cloth/hand roll in right hand to prevent [...] status with Warfarin. Discussed with patient's staff nurse. Will continue to monitor. Total visit time [...] if concern Hydrocephalus Chronic WOODARD's - Revised DIRECTOR CARDIAC shunt - daughter requested that pt have [...] then may need to be transferred to [facility]. " Seizure history, unspecified - daughter requested [...] get report from nursing. Continue wound care. [facility] Anticoagulation Management Service ([facility]) Inpatient Warfarin Consult HPI: Andrew Sifuentes is a 71 y.o. 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 Pt was [...] PharmD [facility] Consult Service is available daily [phone]. Please search for covering pharmacist name via Lingoda or Groups --> Pharmacy --> Anti-Coagulation Consult Pharmacist (on 3rd page). If no response via Lingoda, please page [phone]. Moon daughter stated that any of patient's family can call and obtain an update on patient's status. Speech Language Pathology Facility/Department: [facility] CLINICAL BEDSIDE SWALLOW EVALUATION NAME: [...] a small bore straw. Additionally discussed with WAREHOUSE GENERAL LABORER, agreeable to assess tomorrow. Recent Chest Xray/CT [...] and liquids between bites. Treatment Plan Requires WAREHOUSE GENERAL LABORER Intervention: Yes Duration of Treatment: 2 weeks [...] Education Response: Verbalizes understanding;Needs reinforcement Therapy Time WAREHOUSE GENERAL LABORER Individual Minutes Time In: 826 Time Out: 852 Minutes: 26 NEVILLE Jones 10/26/2021 9:20 AM Comprehensive Nutrition Assessment Type and Reason for Visit: Initial (DT referral for wounds) Nutrition Recommendations/Plan: 1. Recommend to continue: Easy to Chew diet with Thin Liquids as currently ordered and safe for patient to participate in. Discussed with: RN, HARDBOARD FACTORY WORKER, and WAREHOUSE GENERAL LABORER. WAREHOUSE GENERAL LABORER to assess tomorrow, best diet and liquid [...] & deltoids),Scapula (trapezius) Fluid Accumulation: Mild Extremities Prosthodontist/Educator Strength: Not Performed Nutrition Assessment: 71 year [...] a small bore straw. Additionally discussed with WAREHOUSE GENERAL LABORER, agreeable to assess tomorrow. Nutrition Related Findings: [...] Anthropometric Measures: Height: 5' 7.01" (170.2 cm) Colwell Body Weight (IBW): 148 lbs (67 kg) Admission Body Weight: 240 lb (108.9 kg) (stated 10/21/21) Current Body Weight: 205 lb 4 oz (93.1 kg) (10/25/21), 138.7 % IBW. Weight Source: Bed Scale Current BMI (kg/m2): 32.1 Usual Body Weight: 272 lb 11.3 oz (123.7 kg) (05/30/21 and 232.5# noted 08/14/21 at [facility] per EMR Review) % Weight Change (Calculated): -24.7 BMI Categories: Obese Class 1 (BMI 30.0-34.9) Estimated Daily Nutrient Needs: Energy Requirements Based On: Kcal/kg Weight Used for Energy Requirements: Colwell (67.15 kg) Energy (kcal/day): 1585-5455 (27-32 kcal/kg IBW) --> increased need d/t wounds Weight Used for Protein Requirements: Colwell (67.15 kg) Protein (g/day): 67-101 (1.0-1.5 g protein/kg IBW) Method Used for Fluid Requirements: Other (Comment) Fluid (ml/day): 8435-5471 mL daily or per MD Nutrition Diagnosis: [...] Plan of Care discussed with: Patient, RN, HARDBOARD FACTORY WORKER Edwin Goals: Goals: other (specify) Specify Other Goals: Patient to meet at least 50% estimated needs via PO and ONS Nutrition Monitoring and Evaluation: Behavioral-Environmental Outcomes: None Identified Food/Nutrient Intake Outcomes: Food and Nutrient Intake,Supplement Intake,Diet Advancement/Tolerance Physical Signs/Symptoms Outcomes: Biochemical Data,Chewing or Swallowing,Meal Time Behavior,Hemodynamic Status,Fluid Status or Edema,Nutrition Focused Physical Findings,Skin,Weight,Nausea or Vomiting,GI Status Discharge Planning: Too soon to determine uPja Almanza RD, LD Contact: *[phone] Lingoda Hematology/Oncology Attending Progress Note SUBJECTIVE: Patient seen [...] IRON, TIBC, FERRITIN No results found for: [id number] No results found for: FOLATE PT 15.6 INR 1.5 CA 19 - 9 is 17 Protein S 138% Protein C 186% ASSESSMENT AND PLAN GI input appreciated. Patient continues with subtherapeutic INR. GI input appreciated. Discussed with patient's staff nurse. Will continue monitor. Total visit time > 35 minutes. [facility] Anticoagulation Management Service ([facility]) Inpatient Warfarin Consult HPI: Andrew Sifuentes is a 71 y.o. 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 Pt was [...] drug interactions and adjust dose accordingly. 3. [facility] will manage while inpatient and sign off at discharge. Patient resides in a SNF. 4. Will provide warfarin education including [facility] warfarin booklet, if appropriate. Thank you for this consult Brionna Le, PharmD candidate Josie Gupta RPh, PharmD [facility] Consult Service is available daily [phone]. Please search for covering pharmacist name via uShipServe or Groups --> Pharmacy --> Anti-Coagulation Consult Pharmacist (on 3rd page). If no response via PerfectServe, please page [phone]. Progress Note 10/25/2021 9:36 AM Name: Andrew [...] if concern Hydrocephalus Chronic WOODARD's - Revised DIRECTOR CARDIAC shunt DC planning - 10/25/21: INR subtherapeutic, [...] if concern Hydrocephalus Chronic WOODARD's - Revised DIRECTOR CARDIAC shunt DC planning - Can be DC'd back to ECF once MRI done if no acute findings, MRI is done, defer to hem / onc on plan for that, awaiting chest PA with fluoro Patient seen and chart reviewed. Consult dictated. Will ask GI to assess concerning the etiology of liver lesions. Will continue to monitor. [facility] Anticoagulation Management Service ([facility]) Inpatient Warfarin Consult HPI: Andrew Sifuentes is a 71 y.o. 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 Pt was [...] drug interactions and adjust dose accordingly. 3. [facility] will manage while inpatient and sign off at discharge. Patient resides in a SNF. 4. Will provide warfarin education including [facility] warfarin booklet, if appropriate. Thank you for this consult Brionna Le, PharmD candidate Josie Gupta RP, PharmD [facility] Consult Service is available daily [phone]. Please search for covering pharmacist name via Lingoda or Groups --> Pharmacy --> Anti-Coagulation Consult Pharmacist (on 3rd page). If no response via PerfectServe, please page [phone]. Follow up foot wounds Patient is more alert this morning. Waffle boots are on Ulcer left heel ulcer right foot Foot drop PE, chart reviewed. Patient relates that he does not walk at home. c ontinue wound care. Images from the original note were not included. Hospitalist Progress Note 10/23/2021 1:47 PM [phone]: Please page me ([phone]) or perfect serve me for patient care issues. 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 Pt referred to RD for foot ulcers. Occupational Therapy Facility/Department: [facility] Occupational Therapy Initial Assessment Name: Andrew Sifuentes : 1950 Date of Service: 10/23/2021 OT eval and treat orders received. Chart reviewed. Per notes pt from ECF, is Boaz lift at baseline, non-ambulatory, and requires assist for all ADLs. Will d/c OT orders. Elizabeth Gutierrez OT Physical Therapy Facility/Department: [facility] Physical Therapy Initial Assessment Name: Andrew Sifuentes : 1950 Date of Service: 10/23/2021 PT eval and treat orders received. Chart reviewed. Per notes pt from [facility], is Boaz lift at baseline, non-ambulatory. Will d/c PT orders. Lloyd Silva PT [facility] Anticoagulation Management Service ([facility]) Inpatient Warfarin Consult HPI: Andrew Sifuentes is a 71 y.o. 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 Pt was [...] PharmD [facility] Consult Service is available daily [phone]. Please search for covering pharmacist name via Lingoda or Groups --> Pharmacy --> Anti-Coagulation Consult Pharmacist (on 3rd page). If no response via uShipServe, please page [phone]. Department of Podiatry Attending Consult Note Reason for Consult: Wound care Requesting Physician: MD Oksana CHIEF COMPLAINT: Foot wounds HISTORY OF PRESENT ILLNESS: The patient is a 71 y.o. male with b/l foot wounds. Patient is awake , but not answering questions. 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 Will follow . Thank you. [facility] Respiratory Care Department Progress Note As [...] included. Hospitalist Progress Note 10/22/2021 6:33 AM [phone]: Please page me ([phone]) or perfect serve me for patient care issues. [phone]: Please page [facility] night Hospitalist for any issues. Subjective: Admit Date: 10/21/2021 PCP: MONIKA STALEY MD Room#: 307/1464 Admitting Synopsis: 71 y/o male presents from [...] consider MRI if concern Hydrocephalus - Revised DIRECTOR CARDIAC shunt Interval History: No overnight issues. 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 Hospitalist Progress Note 10/21/2021 5:31 PM [phone]: Please page me ([phone]) or perfect serve me for patient care issues. [phone]: Please page IMS night Hospitalist for any [...] Will need chronic OAC Hydrocephalus - Revised DIRECTOR CARDIAC shunt Interval History: No overnight issues. 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 Her phone number is [phone] to speak with whomever was attempting to reach out to her. documented in this encounter [facility] Work Phone: 10-17-2021 Miscellaneous Notes Mr. Sifuentes missed his hospital stay follow-up appointment w. Dr. Lim today. Called to Reschedule. Could not get through. "Subscriber you have dialed not in service" - was the automated voice mail. Unable to leave . No other phone# available. Ramya Negro [facility] documented in this encounter [facility] 08-19-2021 Note [facility] 08-19-2021 Note [facility] 08-18-2021 Note [facility] 08-18-2021 Note [facility] 08-17-2021 Note [facility] 08-17-2021 Note [facility] 08-16-2021 Note [facility] 08-16-2021 Note HNO ID: [id number] Author: Katt Kelsey DO Service: Hospital Medicine Author Type: Physician Type: Plan of Care Filed: 08/16/2021 12:26 PM Note Text: Spoke with RN that line is a PICC. Katt Kelsey DO 08/16/2021 12:26 PM [facility] 08-16-2021 Note [facility] 08-16-2021 Note [facility] 08-15-2021 Note [facility] 08-15-2021 Note [facility] 08-15-2021 Note [facility] 08-14-2021 Note [facility] 08[facility]14-2021 Note [facility] 08-13-2021 Note [facility] 08-13-2021 Note [facility] 08-13-2021 Note [facility] 08-13-2021 Note HNO ID: [id number] Author: Interface Note Service: ? Author Type: ? Type: Progress Notes Filed: 08/13/2021 3:10 AM Note Text: Epic Scheduled Downtime: 08/13/2021 1:08:47 AM to 08/13/2021 2:53:47 AM [facility] 08-12-2021 Note [facility] 08-12-2021 Note [facility] 08-12-2021 Note [facility] 08-11-2021 Note [facility] 08-11-2021 Note [facility] 08-11-2021 Note [facility] 08-11-2021 Note [facility] 08[facility]11-2021 Note [facility] 08[facility]11-2021 Note [facility] 08-10-2021 Note [facility] 08-10-2021 Note [facility] 08-10-2021 Note [facility] 08-10-2021 Note [facility] 08-09-2021 Note HNO ID: [id number] Author: Shannon Brooks RN Service: ? Author Type: Registered Nurse Type: Nursing Progress Note Filed: 08/09/2021 7:33 PM Note Text: Report called to unit [facility] 08-09-2021 Note [facility] 08-09-2021 Note [facility] 08-09-2021 Note [facility] 08-08-2021 Note [facility] 08-08-2021 Note [facility] 08-08-2021 Note [facility] 08-07-2021 Note [facility] 08-07-2021 Note [facility] 08-07-2021 Note [facility] 08-07-2021 Note [facility] 08-07-2021 Note [facility] 08-06-2021 Note [facility] 08-06-2021 Note [facility] 08-06-2021 Note [facility] 08-05-2021 Note [facility] 08-05-2021 Note [facility] 08[facility]05-2021 Note [facility] 08-04-2021 Note [facility] 08-04-2021 Note [facility] 08-04-2021 Note [facility] 08-03-2021 Note [facility] 08-03-2021 Note [facility] 08-03-2021 Note [facility] 08-02-2021 Note [facility] 08-02-2021 Note [facility] 08-02-2021 Note [facility] 08-01-2021 Note [facility] 08-01-2021 Note [facility] 08[facility]01-2021 Note [facility] 08-01-2021 Note [facility] 07-31-2021 Note [facility] 07-31-2021 Note [facility] 07-30-2021 Note [facility] 07[facility]30-2021 Note [facility] 07[facility]30-2021 Note [facility] 07-29-2021 Note [facility] 07-29-2021 Note [facility] 07[facility]29-2021 Note [facility] 07-28-2021 Note [facility] 07-28-2021 Note [facility] 07-28-2021 Note [facility] 07-27-2021 Note [facility] 07-27-2021 Note [facility] 07-27-2021 Note [facility] 07-26-2021 Note [facility] 07[facility]26-2021 Note [facility] 07-26-2021 Note [facility] 07-26-2021 Note [facility] 07-26-2021 Note [facility] 07-25-2021 Note [facility] 07-25-2021 Note [facility] 07-25-2021 Note [facility] 07-25-2021 Note [facility] 07-24-2021 Note [facility] 07-24-2021 Note [facility] 07-24-2021 Note [facility] 07-23-2021 Note [facility] 07-23-2021 Note [facility] 07-23-2021 Note [facility] 07-23-2021 Note [facility] 07[facility]23-2021 Note [facility] 07[facility]22-2021 Note [facility] 07-22-2021 Note [facility] 07-22-2021 Note [facility] 07-21-2021 Note [facility] 07-21-2021 Note [facility] 07-21-2021 Note [facility] 07-21-2021 History of Past i llness Narrative Problem Noted Date Resolved Date Fever 07/21/2021 07/28/2021 Last Assessment & Plan: See "Ventriculitis." Shock circulatory 06/15/2021 06/17/2021 Hypotension 06/15/2021 06/17/2021 Last Assessment & Plan: 2/ medication induced 500 cc bolus Low dose levophed for MAP >65 off 06/16 Resolved Sepsis 06/14/2021 10/16/2021 Last Assessment & Plan: Assessment: Patient with history of fever, elevated WBC, RP hematoma DIRECTOR CARDIAC shunt tip grew anaerobic gram positive cocci 06/08/2021 PLAN: DIRECTOR CARDIAC shunt tip sent to [facility] main, awaiting cx Continue Meropenem per I.D [...] Hydrocephalus - repeat CTH 2 stable - 22 VA shunt removal and VPS shunt placed- EVD removed 06/10 PLAN: - following CSF studies; 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 for COMMERCIAL RELATIONSHIP MANAGER infection at this time - ID following- Continue antibiotics: Meropenem -CSF leak from EVD site, appreciate NSGY recs> stat repeat CTH on 06/07 d/t concern for CSF leak, cephalematoma, CTH unremarkable -Tolerating TF - SBT WTE - PICC line placed documented as of this encounter (statuses as of 10/17/2021) [facility]03-17-2022 [facility]03-16-2022 [facility]03-16-2022 [facility]03-16-2022 Note [facility]03-16-2022 [facility]03[facility]15[facility]2022 [facility]03-14-2022 [facility]03-14-2022 [facility]03-13-2022 [facility]03-13-2022 [facility]03-12-2022 Note [facility]03-12-2022 [facility] 07-15-2021 [facility]03-11-2022 [facility]03-10-2022 [facility]03-10-2022 [facility]03[facility]10-2022 [facility]03-09-2022 [facility]03-09-2022 [facility]03-09-2022 Note [facility]03-09-2022 [facility] 07-12-2021 [facility]03-08-2022 [facility]03-07-2022 [facility]03-07-2022 [facility]03-07-2022 [facility]03-07-2022 [facility]03-06-2022 [facility]03-06-2022 Note [facility]03-05-2022 [facility] 07-09-2021 [facility]03-05-2022 [facility]03-05-2022 [facility]03-05-2022 NoteHNO ID: [id number] Author: Lizette Valderrama RN Service: Nursing Author Type: Registered Nurse Type: Nursing Progress Note Filed: 07/09/2021 1:41 AM Note Text: Report called to [facility]03-04-2022 NoteHNO ID: [id number] Author: Lizette Valderrama RN Service: Nursing Author Type: Registered Nurse Type: Nursing Progress Note Filed: 07/08/2021 8:57 PM Note Text: [address]49 back to PACU [address] [place], [place] [id number] NoteHNO ID: [id number] Author: Sukhi Chery APRN.CNP Service: ? Author Type: Nurse Practitioner Type: Progress Notes Filed: 07/09/2021 6:46 PM Note Text: Connected Care Unit Progress Note Patient Name: Andrew Sifuentes Patient Facility: [facility] Admit Date 06/28/2021 Level of Care: Skilled [...] Dept Phone 07/21/2021 11:00 AM NICOLE LIM [phone] HPI: (Per Dr. Beltran) Andrew Sifuentes is being seen today for half-way facility (SNF) admission AND management of weakness, tube feed, infected retroperitoneal infection and seizure. ? This is a 71 year old male who presents from [facility] with primary admitting diagnosis of Seizure, enteral [...] CT brain concerning for hydrocephalus. Tip of DIRECTOR CARDIAC shunt was found to be in the [...] slow to respond. Ordered to transfer to [facility] ED for evaluation of neurological and [...] changes in co (more content not included)... [facility]03-04-2022 [facility]03-04-2022 [facility]03-02-2022 NoteHNO ID: [id number] Author: Sukhi Chery APRN.CNP Service: ? Author Type: Nurse Practitioner Type: Progress Notes Filed: 07/09/2021 6:20 PM Note Text: Connected Care Unit Progress Note Patient Name: Andrew Sifuentes Patient Facility: [facility] Admit Date 06/28/2021 Level of Care: Skilled [...] Dept Phone 07/21/2021 11:00 AM [facility]ICO[facility] LIM [phone] HPI: (Per Dr. Beltran) Andrew Sifuentes is being seen today for half-way facility (SNF) admission AND management of weakness, tube feed, infected retroperitoneal infection and seizure. ? This is a 71 year old male who presents from [facility] with primary admitting diagnosis of Seizure, enteral [...] CT brain concerning for hydrocephalus. Tip of DIRECTOR CARDIAC shunt was found to be in the [...] uncontrolled pain exacerbations. Medications: Medications listed in [facility] during SNF admission may not be current. [...] Pharynx: Oropharynx is clear. (more content not included)...[facility]02-28-2022 NoteHNO ID: [id number] Author: Sukhi Chery APRN.CNP Service: ? Author Type: Nurse Practitioner Type: Progress Notes Filed: 07/09/2021 6:07 PM Note Text: Connected Care Unit Progress Note Patient Name: Andrew Sifuentes Patient Facility: [facility] Admit Date 06/28/2021 Level of Care: Skilled [...] but nursing notes it was drawn by oil well service unit operator as vancomycin was being infused; reordered trough - PICC Line Intact - No fevers or chills per patient or staff (R53.81) Debility - Certify therapies - Maintain high falls risk precautions - pt/staff verbalize understanding validated via teach back - Monitor safety awareness Appointments for Next 60 Days Date Time Provider Location Dept Phone 07/21/2021 11:00 AM NICOLE LIM [phone] HPI: (Per Dr. Beltran) Andrew Sifuentes is being seen today for half-way facility (SNF) admission AND management of weakness, tube feed, infected retroperitoneal infection and seizure. ? This is a 71 year old male who presents from [facility] with primary admitting diagnosis of Seizure, enteral [...] CT brain concerning for hydrocephalus. Tip of DIRECTOR CARDIAC shunt was found to be in the [...] to facility records. OBJECTIVE: Labs/diagnostics: 07/04/2021 Glucose=91 Cz=703 K=3.8 Aj=469 CO2=24 BUN=14 Creatinine=0.5 KOX=138 Ca=9.0 Protein,Total=6.7 Albumin=3.6 RedIpmc=352 AST=15 ALT=21 Bilirubin,Totall=0.5 WBC=10.7 RBC=4.04 Hgb=10.9 Hct=35.3 Eovslprv=173 VancomycinTr (more content not included)...[facility]02-24-2022 NoteHNO ID: [id number] Author: Sukhi Chery APRN.VICTORIANO Service: ? Author Type: Nurse Practitioner Type: Progress Notes Filed: 07/09/2021 5:43 PM Note Text: Connected Care Unit Progress Note Patient Name: Andrew Sifuentes Patient Facility: [facility] Admit Date 06/28/2021 Level of Care: Skilled [...] Dept Phone 07/21/2021 11:00 AM NICOLE LIM [phone] HPI: (Per Dr. Beltran) Andrew Sifuentes is being seen today for half-way facility (SNF) admission AND management of weakness, tube feed, infected retroperitoneal infection and seizure. ? This is a 71 year old male who presents from [facility] with primary admitting diagnosis of Seizure, enteral [...] CT brain concerning for hydrocephalus. Tip of DIRECTOR CARDIAC shunt was found to be in the [...] to facility records. OBJECTIVE: Labs/diagnostics: 07/01/2021 Glucose=83 Wp=462 K=4.1 Ok=323 CO2=27 BUN=22 Creatinine=0.6 PEE=057 Ca=8.7 WBC=10.8 RBC=3.40 Hgb=9.3 Hct=29.9 Fohtbpui=857 Vital Signs: BP 128/80 Pulse 77 Temp 36.7 ?C (98 ?F) Resp 20 Ht 182.9 cm (6') Wt 113 kg (249 lb 3.2 oz) SpO2 96% BMI 33.80 kg/m? Physical Exam: Physical Exam Vitals reviewed. Constitutional: General: He is not in acute distress. (more content not included)...[facility]02-22-2022 [facility]02-22-2022 [facility]02-21-2022 [facility]02-21-2022 Note [facility]02-20-2022 [facility] 06-26-2021 [facility]02-19-2022 [facility]02-19-2022 [facility]02-18-2022 [facility]02-18-2022 [facility]02-18-2022 [facility]02-17-2022 [facility]02-17-2022 Note [facility]02-17-2022 [facility] 06-22-2021 NoteHNO ID: [id number] Author: Xiomy England RN Service: Nursing Author Type: Registered Nurse Type: Nursing Progress Note Filed: 06/22/2021 7:22 PM Note Text: RT contacted as pt has wheezing auscultated and same auditory. For prn Treatment.[facility]02-16-2022 [facility]02-16-2022 [facility]02-16-2022 [facility]02-16-2022 [facility]02-16-2022 [facility]02-15-2022 [facility]02-15-2022 Note [facility]02-15-2022 [facility] 06-21-2021 [facility]02-14-2022 [facility]02-14-2022 [facility]02-14-2022 [facility]02-14-2022 [facility]02[facility]14-2022 [facility]02-13-2022 [facility]02-13-2022 Note [facility]02-13-2022 [facility] 06-19-2021 [facility]02-13-2022 [facility]02-12-2022 [facility]02-12-2022 [facility]02-12-2022 [facility]02-12-2022 [facility]02-12-2022 [facility]02-12-2022 Note [facility]02-12-2022 NoteHNO ID: [id number] Author: Interface Note Service: ? Author Type: ? Type: Progress Notes Filed: 06/18/2021 3:10 AM Note Text: Epic Scheduled Downtime: 06/18/2021 1:00:00 AM to 06/18/2021 2:27:00 [facility]02-11-2022 [facility]02-11-2022 Note [facility]02-11-2022 [facility] 06-17-2021 [facility]02-11-2022 [facility]02-11-2022 [facility]02-10-2022 [facility]02-10-2022 [facility]02-10-2022 [facility]02-10-2022 [facility]02-10-2022 Note [facility]02-10-2022 [facility] 06-15-2021 [facility]02-09-2022 NoteHNO ID: [id number] Author: Lamonte Kline DO Service: Neurology ICU Author Type: Resident Type: Plan of Care Filed: 06/15/2021 6:21 PM Note Text: Patient's daughter Melissa updated on plan of care and critical condition, all questions answered.[facility]02-09-2022 [facility]02-09-2022 [facility]02-09-2022 [facility]02-09-2022 [facility]02-09-2022 Note [facility]02-09-2022 [facility] 06-15-2021 [facility]02-08-2022 [facility]02-08-2022 [facility]02[facility]08-2022 [facility]02-08-2022 [facility]02-07-2022 [facility]02-07-2022 [facility]02-07-2022 Note [facility]02-07-2022 [facility] 06-12-2021 [facility]02-06-2022 [facility]02-06-2022 [facility]02-05-2022 [facility]02-05-2022 [facility]02-04-2022 [facility]02-04-2022 [facility]02-04-2022 Note [facility]02-04-2022 [facility] 06-09-2021 [facility]02-03-2022 [facility]02-03-2022 [facility]02-03-2022 [facility]02-02-2022 [facility]02-02-2022 NoteHNO ID: [id number] Author: Luis Diaz RN Service: ? Author Type: Registered Nurse Type: Nursing Progress Note Filed: 06/08/2021 9:23 AM Note Text: Patient off the floor to OR at this time.[facility]02-02-2022 [facility]02-02-2022 [facility] 06-08-2021 NoteHNO ID: [id number] Author: Eloise Samuel RN Service: ? Author Type: Registered Nurse Type: Nursing Progress Note Filed: 06/08/2021 12:46 AM Note Text: Dr. Brito notified of changes throughout shift. [facility] 06-07-2021 NoteHNO ID: [id number] Author: Eloise Samuel RN Service: ? Author Type: Registered Nurse Type: Nursing Progress Note Filed: 06/07/2021 8:01 PM Note Text: Neuro surg HEEL VARNISHER notified of downward deviation of pupils. No new orders at this time.[facility]02-01-2022 [facility]02-01-2022 [facility]02-01-2022 [facility]02-01-2022 [facility]01-31-2022 [facility]01-31-2022 [facility]01-31-2022 Note [facility]01-31-2022 [facility] 06-05-2021 [facility]01-30-2022 [facility]01-30-2022 [facility]01-29-2022 [facility]01-29-2022 NoteHNO ID: [id number] Author: Jermaine Miller PA-C Service: Neurosurgery Author Type: Physician Case Operator Type: Plan of Care Filed: 06/04/2021 1:59 PM Note Text: Discussed with Dr. Charles CT brain results. At this time, continue with EVD at [facility]01-29-2022 [facility] 06-04-2021 [facility]01-28-2022 [facility]01-28-2022 NoteHNO ID: [id number] Author: Mauricio Frank DO Service: Neurology ICU Author Type: Physician Type: Plan of Care Filed: 06/03/2021 2:38 PM Note Text: I spoke with Melissa and updated her over the phone. Mauricio Frank, [facility]01-28-2022 [facility]01-28-2022 [facility]01-27-2022 [facility]01-27-2022 [facility]01-27-2022 Note [facility]01-26-2022 [facility] 06-01-2021 [facility]01-26-2022 [facility]01-26-2022 [facility]01-26-2022 [facility]01-25-2022 [facility]01-25-2022 [facility]01-25-2022 [facility]01-25-2022 Note [facility]01-25-2022 [facility] 05[facility]31-2021 [facility] Leg swelling- Primary Swelling of limb Acute deep vein thrombosis (DVT) of proximal vein of lower extremity, unspecified laterality (HCC) DVT, lower extremity, recurrent, unspecified laterality (HCC) Moderate malnutrition (HCC) Malnutrition of moderate degree History of seizures Personal history of other disorders of nervous system and sense organs documented in this encounter [facility] Work Phone: Evaluation noteNo assessment information available [facility] Work Phone: Evaluation note* Diagnosis Other fatigue- Primary documented in this encounter [facility] Work Phone: Evaluation note* Diagnosis Heel ulceration, left, with unspecified severity (HCC)- Primary documented in this encounter [facility] Work Phone: Evaluation note* Diagnosis Fall, initial encounter- Primary Anticoagulated Encounter for long-term (current) use of anticoagulants documented in this encounter [facility] Work Phone: Evaluation note* Diagnosis Left flank pain- Primary Abdominal pain, unspecified site Calculus of ureter Disease of prostate Unspecified disorder of prostate BPH with urinary obstruction Hypertrophy of prostate with urinary obstruction and other lower urinary tract symptoms (LUTS) documented in this encounter [facility]* Diagnosis Left flank pain Abdominal pain, unspecified site Calculus of ureter documented in this encounter [facility] [employer] [facility]* Diagnosis Left flank pain- Primary Abdominal pain, unspecified site BPH with urinary obstruction Hypertrophy of prostate with urinary obstruction and other lower urinary tract symptoms (LUTS) History of kidney stones documented in this encounter [facility] HealthInstructions* Name Dates Details Instructions not documented [id number] Work Phone: Instructions* Name Dates Details Instructions not documented [id number] [address] [place] Work Phone: Reason for referral (narrative)No reason for referral [facility] Work Phone: Advance Directives No Advanced Directives Records FoundDocuments on File Type Date Recorded Patient Signal Tower Director Expl anation Advance Directives and Living Will Power of Associate Manager Affiliate Marketing Documents on File Type Date Recorded Patient Signal Tower Director Expl anation Advance Directive(s) 06/02/2021 2:45 PM Advance Directive(s) 05/29/2021 8:25 PM Latest Code Status on File Code Status Date Activated Date Inactivated Comments Full Code 08/12/2021 2:20 PM 08/19/2021 9:17 PM Full Code Order Discussed With: Patient Full Code 06/17/2021 10:23 AM 06/28/2021 8:04 PM Full Code Order Discussed With: Surrogate Ranjithisi on Maker Surrogate Decision Maker Name: Moon Surrogate Decision Maker Relationship: 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 Adult 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) Documents on File Type Date Recorded Patient Signal Tower Director Expl anation ACP-Advance Directive ACP-Power of Associate Manager Affiliate Marketing Latest Code Status on File Code Status Date Activated Date Inactivated Comments Full Code 10/21/2021 4:09 AM Healthcare Agents on File Name Relationship Healthcare Agent Relationshi p Communication Melissa Maria Child Primary Decision Maker deann Maria Child Secondary Decision Maker Documents on File Type Date Recorded Patient Signal Tower Director Expl anation ACP-Advance Directive ACP-Power of Associate Manager Affiliate Marketing ACP-Do Not Resuscitate 11/01/2021 7:03 AM Latest Code Status on File Code Status Date Activated Date Inactivated Comments Full Code 10/21/2021 4:09 AM 10/29/2021 7:25 PM Healthcare Agents on File Name Relationship Healthcare Agent Relationshi p Communication Melissa Maria Child Primary Decision Maker deann Maria Child Secondary Decision Maker Documents on File Type Date Recorded Patient Signal Tower Director Expl anation ACP-Do Not Resuscitate 11/03/2021 10:15 AM ACP-Do Not Resuscitate 11/01/2021 7:03 AM Healthcare Agents on File Name Relationship Healthcare Agent Relationshi p Communication Melissa Maria Child Primary Decision Maker deann Maria Child Secondary Decision Maker Documents on File Type Date Recorded Patient Signal Tower Director Expl anation ACP-Do Not Resuscitate 11/03/2021 10:15 AM ACP-Do Not Resuscitate 11/01/2021 7:03 AM Latest Code Status on File Code Status Date Activated Date Inactivated Comments Full Code 10/21/2021 4:09 AM 10/29/2021 7:25 PM Healthcare Agents on File Name Relationship Healthcare Agent Relationshi p Communication Melissa Maria Child Primary Decision Maker deann Sifuentes Child Secondary Decision Maker [phone] (Mobile) Documents on File Type Date Recorded Patient Signal Tower Director Expl anation DNR (Do Not Resuscitate) 10/31/2021 DNR (Do Not Resuscitate) 10/21/2021 Documents on File Type Date Recorded Patient Signal Tower Director Expl anation DNR (Do Not Resuscitate) 10/31/2021 [...] WORK LABWORK Chief Complaint LAB WORK LABWORK HALF-WAY LAB WORK HALF-WAY LABWORK Chief Complaint LAB WORK LABWORK HALF-WAY LAB WORK HALF-WAY LABWORK LABWORK LABWORK HALF-WAY LAB WORK HALF-WAY LABWORK HALF-WAY LAB WORK LABWORK HALF-WAY LAB WORK LABWORK HALF-WAY LABWORK Chief Complaint LAB WORK LABWORK HALF-WAY LAB WORK HALF-WAY LABWORK LABWORK LABWORK HALF-WAY LAB WORK HALF-WAY LABWORK HALF-WAY LAB WORK LABWORK HALF-WAY LAB WORK LABWORK HALF-WAY LABWORK HALF-WAY LABWORK LABWORK Chief Complaint LAB WORK LABWORK HALF-WAY LAB WORK HALF-WAY LABWORK LABWORK LABWORK HALF-WAY LAB WORK HALF-WAY LABWORK HALF-WAY LAB WORK LABWORK HALF-WAY LAB WORK LABWORK HALF-WAY LABWORK HALF-WAY LABWORK LABWORK HALF-WAY LAB WORK Chief Complaint LABWORK HALF-WAY LAB WORK HALF-WAY LABWORK LABWORK LABWORK HALF-WAY LAB WORK HALF-WAY LABWORK HALF-WAY LAB WORK LABWORK HALF-WAY LAB WORK [facility] LABWORK [facility] WORK Chief Complaint LABWORK [facility] WORK [facility]WORK LABWORK LABWORK [facility] LAB WORK [facility] LABWORK [facility] LAB WORK LABWORK [facility] LAB WORK LABWORK [facility] LABWORK [facility] LABWORK LABWORK LABWORK [facility] LAB WORK LABWORK [facility] LABWORK [facility] LAB WORK [facility] LABWORK Chief Complaint [facility] LAB WOR K [facility] LABWORK LABWORK LABWORK [facility] LAB WORK [facility] LABWORK [facility] LAB WORK LABWORK [facility] LAB WORK LABWORK [facility] LABWORK [facility] LABWORK LABWORK LABWORK [facility] LAB WORK LABWORK [facility] LABWORK [facility] LAB WORK [facility] LABWORK [facility] LAB WORK Chief Complaint [facility] LABWORK LABWORK LABWORK [facility] LAB WORK [facility] LABWORK [facility] LAB WORK LABWORK [facility] LAB WORK LABWORK [facility] LABWORK [facility] LABWORK LABWORK LABWORK [facility] LAB WORK LABWORK [facility] LABWORK [facility] LAB WORK [facility] LABWORK LABWORK [facility] LAB WORK Chief Complaint [facility] LAB WOR K [facility] LABWORK [facility] LAB WORK LABWORK [facility] LAB WORK LABWORK [facility] LABWORK [facility] LABWORK LABWORK LABWORK [facility] LAB WORK LABWORK [facility] LABWORK [facility] LAB WORK [facility] LABWORK LABWORK LABWORK [facility] LAB WORK [facility] PATIENT [facility] LABWORK [facility] LABWORK Chief Complaint LABWORK [facility] LAB WORK LABWORK [facility] LABWORK [facility] LABWORK LABWORK LABWORK [facility] LAB WORK LABWORK [facility] LABWORK [facility] LAB WORK [facility] LABWORK LABWORK LABWORK [facility] LAB WORK [facility]WAY PATIENT [facility] LABWORK [facility] LABWORK [facility] LAB WORK Chief Complaint LABWORK [facility] LABWORK [facility] LABWORK LABWORK LABWORK [facility] LAB WORK LABWORK [facility] LABWORK [facility] LAB WORK [facility] LABWORK LABWORK LABWORK [facility] LAB WORK [facility]WAY PATIENT [facility] LABWORK [facility] LABWORK [facility] LAB WORK [facility] LAB WORK [facility] LAB WORK Chief Complaint LABWORK LABWORK [facility] LAB WORK [facility]WAY PATIENT [facility] LABWORK [facility] LABWORK [facility] LAB WORK [facility] LAB WORK [facility] LAB WORK [facility]AY LABWORK [facility] LABWORK LABWORK [facility] LAB WORK LABWORK Chief Complaint [facility] LAB WOR K [facility] PATIENT [facility] LABWORK [facility] LABWORK [facility] LAB WORK [facility] LAB WORK [facility] LAB WORK [facility] LABWORK [facility] LABWORK LABWORK [facility] LAB WORK LABWORK [facility] LABWORK Chief Complaint [facility]WAY PATIENT [facility] LABWORK [facility] LABWORK [facility] LAB WORK [facility]AY LAB WORK [facility]AY LAB WORK [facility]WAY LABWORK [facility] LABWORK LABWORK [facility] LAB WORK LABWORK [facility] LABWORK [facility] LABWORK Chief Complaint [facility] LABWORK [facility] LAB WORK [facility] LAB WORK [facility]AY LAB WORK [facility]AY LABWORK [facility] LABWORK LABWORK [facility] LAB WORK LABWORK [facility] LABWORK [facility] LABWORK [facility] LABWORK Chief Complaint [facility] LABWORK [facility] LAB WORK [facility] LAB WORK [facility] LAB WORK HAL[facility]WAY LABWORK [facility] LABWORK LABWORK [facility] LAB WORK LABWORK [facility] LABWORK [facility] LABWORK [facility] LABWORK [facility] LABWORK Chief Complaint [facility] LABWORK LABWORK [facility] LAB WORK LABWORK [facility] LABWORK [facility]AY LABWORK [facility] LABWORK [facility]AY LABWORK [facility] LABWORK LABWORK [facility] LABWORK Chief Complaint LABWORK [facility] LAB WORK LABWORK [facility] LABWORK [facility] LABWORK [facility] LABWORK [facility] LABWORK [facility] LABWORK LABWORK LABWORK [facility] LABWORK [facility] LAB WORK [facility] LABWORK [facility] LAB WORK Chief Complaint LABWORK [facility] LAB WORK LABWORK [facility] LABWORK [facility] LABWORK [facility] LABWORK [facility] LABWORK [facility] LABWORK LABWORK LABWORK [facility] LABWORK [facility] LAB WORK [facility]WAY LABWORK [facility] LAB WORK [facility] LABWORK Chief Complaint LABWORK [facility] LAB WORK LABWORK [facility] LABWORK [facility] LABWORK [facility] LABWORK [facility]AY LABWORK [facility] LABWORK LABWORK LABWORK [facility] LABWORK [facility] LAB WORK [facility]WAY LABWORK [facility] LAB WORK [facility] LABWORK LABWORK Chief Complaint [facility] LABWORK [facility] LABWORK [facility] LABWORK [facility]AY LABWORK [facility] LABWORK LABWORK LABWORK [facility] LABWORK [facility] LAB WORK [facility]AY LABWORK [facility] LAB WORK [facility] LABWORK LABWORK [facility] LABWORK Chief Complaint [facility] LABWORK [facility] LABWORK [facility] LABWORK [facility] LABWORK [facility] LABWORK LABWORK LABWORK [facility] LABWORK [facility] LAB WORK [facility]AY LABWORK [facility] LAB WORK [facility] LABWORK LABWORK [facility] LABWORK LABWORK Chief Complaint [facility] LABWORK LABWORK LABWORK [facility] LABWORK [facility] LAB WORK [facility]WAY LABWORK [facility]AY LAB WORK [facility]WAY LABWORK LABWORK [facility] LABWORK LABWORK [facility] LAB WORK [facility]AY LAB WORK [facility] LABWORK Chief Complaint LABWORK [facility] LABWORK LABWORK [facility] LAB WORK [facility]AY LAB WORK [facility]WAY LABWORK [facility]AY LABWORK [facility] LAB WORK [facility]AY LAB WORK [facility] LAB WORK LABWORK [facility] LABWORK Chief Complaint [facility] LAB WOR K [facility] LAB WORK [facility]AY LABWORK [facility] LABWORK [facility] LAB WORK [facility]AY LAB WORK [facility] LAB WORK LABWORK [facility] LABWORK LABWORK [facility] LAB WORK [facility] LAB WORK Chief Complaint [facility] LAB WOR K [facility] LABWORK [facility] LABWORK [facility] LAB WORK [facility] LAB WORK [facility] LAB WORK LABWORK [facility] LABWORK LABWORK [facility] LAB WORK [facility] LAB WORK Chief Complaint [facility]AY LABWORK [facility]AY LABWORK [facility] LAB WORK [facility]AY LAB WORK [facility] LAB WORK LABWORK [facility] LABWORK LABWORK [facility] LAB WORK [facility] LAB WORK [facility] LABWORK LABWORK LABWORK Chief Complaint [facility] LAB WOR K [facility] LAB WORK [facility] LAB WORK LABWORK [facility] LABWORK LABWORK [facility] LAB WORK [facility] LAB WORK [facility] LABWORK LABWORK LABWORK LABWORK LABWORK LABWORK Chief Complaint [facility] LAB WOR K LABWORK [facility] LABWORK LABWORK [facility] LAB WORK [facility] LAB WORK [facility] LABWORK LABWORK LABWORK LABWORK LABWORK [facility] LABWORK [facility] LAB WORK LABWORK [facility] LAB WORK [facility] LAB WORK Chief Complaint [facility] LAB WOR K LABWORK [facility] LABWORK LABWORK [facility] LAB WORK [facility] LAB WORK [facility] LABWORK LABWORK LABWORK LABWORK LABWORK [facility] LABWORK [facility] LAB WORK LABWORK [facility] LAB WORK [facility] LAB WORK [facility] LABWORK Chief Complaint [facility] LAB WOR K [facility] LAB WORK [facility] LABWORK LABWORK LABWORK LABWORK LABWORK [facility] LABWORK [facility] LAB WORK LABWORK [facility] LAB WORK [facility] LAB WORK [facility]WORK [facility] LAB WORK Chief Complaint [facility] LAB WOR K [facility] LABWORK LABWORK LABWORK LABWORK LABWORK [facility] LABWORK [facility] LAB WORK LABWORK [facility] LAB WORK [facility] LAB WORK [facility]WORK [facility] LAB WORK LABWORK Chief Complaint [facility] LAB WOR K [facility] LABWORK LABWORK LABWORK LABWORK LABWORK [facility] LABWORK [facility] LAB WORK LABWORK [facility] LAB WORK [facility] LAB WORK [facility] LABWORK N[facility] LAB WORK [facility] LABWORK LABWORK Chief Complaint LABWORK [facility] LAB WORK [facility] LAB WORK [facility] LABWORK [facility] LAB WORK [facility] LABWORK LABWORK [facility] LABWORK [facility] LAB WORK LABWORK LABWORK Chief Complaint [facility] LAB WORK [facility] LABWORK LABWORK [facility] LABWORK [facility] LAB WORK LABWORK [facility] LAB WORK LABWORK LABWORK Chief Complaint [facility] LAB WORK [facility] LABWORK LABWORK [facility] LABWORK [facility] LAB WORK LABWORK [facility] LAB WORK LABWORK [facility] LAB WORK LABWORK Chief Complaint [facility] LABWORK LABWORK [facility] LABWORK [facility] LAB WORK LABWORK [facility] LAB WORK LABWORK [facility] LAB WORK LABWORK LABWORK Chief Complaint [facility] LABWORK LABWORK [facility] LABWORK [facility] LAB WORK LABWORK [facility] LAB WORK LABWORK [facility] LAB WORK LABWORK LABWORK LABWORK Chief Complaint [facility] LABWORK LABWORK [facility] LABWORK [facility] LAB WORK LABWORK [facility] LAB WORK LABWORK [facility] LAB WORK LABWORK LABWORK LABWORK LABWORK Chief Complaint [facility] LABWORK LABWORK [facility] LABWORK [facility] LAB WORK LABWORK [facility] LAB WORK LABWORK [facility] LAB WORK LABWORK LABWORK [facility] LAB WORK LABWORK LABWORK LABWORK Chief Complaint LABWORK [facility] LABWORK [facility] LAB WORK LABWORK [facility] LAB WORK LABWORK [facility] LAB WORK LABWORK LABWORK [facility] LAB WORK LABWORK LABWORK LABWORK LABWORK LABWORK LABWORK LABWORK Chief Complaint [facility] LABWORK [facility] LAB WORK LABWORK [facility] LAB WORK LABWORK [facility] LAB WORK LABWORK LABWORK [facility] LAB WORK LABWORK LABWORK LABWORK LABWORK LABWORK LABWORK LABWORK LABWORK Chief Complaint LABWORK [facility] LAB WORK LABWORK [facility] LAB WORK LABWORK LABWORK [facility] LAB WORK LABWORK LABWORK LABWORK LABWORK LABWORK LABWORK LABWORK LABWORK LABWORK Chief Complaint [facility] LABWORK LABWORK LABWORK LABWORK LABWORK [facility] LABWORK [facility] LAB WORK LABWORK [facility] LAB WORK [facility] LAB WORK [facility] LABWORK N[facility] LAB WORK [facility] LABWORK LABWORK [facility] LABWORK [facility] LAB WORK Chief Complaint Admit Date [facility] LAB WORK March 13, 2024 5:00am LABWORK March 14, 2024 5 :00am [facility] LAB WORK March 17 5:00am [facility] LAB WORK March 18 5:00am [facility] LAB WORK March 19 4 4:00am [facility] LAB WORK March 20 5:00am [facility] LAB WORK March 24 5:00am [facility] LAB WORK March 27 5:00am LABWORK March 31, 2024 5:00am [facility] LAB WORK April 04 5:00am LABWORK April 07, 2024 5 :00am [facility] LAB WORK April 10, 2024 5:00am [facility] LAB WORK April 14, 2024 5:00am [facility] LAB WORK April 17 5:00am LABWORK April 21, 2024 5:00am [facility] LAB WORK April 24 4:00am LABWORK April 28, 2024 5:00am [facility] LAB WORK May 01 4:00am [facility] LAB WORK May 05 5:00am [facility] LAB WORK May 08, 2024 5:00am [facility] LAB WORK May 09, 2024 4:00am LABWORK May 12, 2024 5: 00am [facility] LAB WORK May 15, 2024 5:00am [facility] LAB WORK May 19, 2024 4:00am [facility] LAB WORK May 20, 2024 5:00am [facility] LAB WORK May 22, 2024 5:00am LABWORK May 26, 2024 5 :00am [facility] LAB WORK May 29, 2024 5:00am [facility] LAB WORK June 02, 2024 5:00am [facility] LAB WORK June 05, 2024 5:00am LABWORK June 09, 2024 5 :00am [facility] LAB WORK June 12, 2024 5:00am [facility] LAB WORK February 10th, 202 5 5:00am [facility] LAB WORK June 19 5:00am LABWORK June 23, 2024 5:00am [facility] LAB WORK June 26 5:00am [facility] LAB WORK June 30 5:00am Chief Complaint Admit Date LABWORK April 07, 2024 5 :00am [facility] LAB WORK April 10, 2024 5:00am [facility] LAB WORK April 14, 2024 5:00am [facility] LAB WORK April 17 5:00am LABWORK April 21, 2024 5:00am [facility] LAB WORK April 24 4:00am LABWORK April 28, 2024 5:00am [facility] LAB WORK May 01 4:00am [facility] LAB WORK May 05 5:00am [facility] LAB WORK May 08, 2024 5:00am [facility] LAB WORK May 09, 2024 4:00am LABWORK May 12, 2024 5: 00am [facility] LAB WORK May 15, 2024 5:00am [facility] LAB WORK May 19, 2024 4:00am [facility] LAB WORK May 20, 2024 5:00am [facility] LAB WORK May 22, 2024 5:00am LABWORK May 26, 2024 5 :00am [facility] LAB WORK May 29, 2024 5:00am [facility] LAB WORK June 02, 2024 5:00am [facility] LAB WORK June 05, 2024 5:00am LABWORK June 09, 2024 5 :00am [facility] LAB WORK June 12, 2024 5:00am [facility] LAB WORK June 16 5:00am [facility] LAB WORK June 19 5:00am LABWORK June 23, 2024 5:00am [facility] LAB WORK June 26 5:00am [facility] LAB WORK June 30 5:00am [facility] LAB WORK July 03 5:00am [facility] LAB WORK July 07, 2024 4: 00am LABWORK July 11, 2024 5:00 am LABWORK July 14, 2024 5:0 0am [facility] LAB WORK July 17, 2024 4 :00am [facility] LAB WORK July 24, 2024 4 :00am Chief Complaint Admit Date [facility] LAB WORK April 14, 2024 5:00am [facility] LAB WORK April 17 5:00am LABWORK April 21, 2024 5:00am [facility] LAB WORK April 24 4:00am LABWORK April 28, 2024 5:00am [facility] LAB WORK May 01 4:00am [facility] LAB WORK May 05 5:00am [facility] LAB WORK May 08, 2024 5:00am [facility] LAB WORK May 09, 2024 4:00am LABWORK May 12, 2024 5: 00am [facility] LAB WORK May 15, 2024 5:00am [facility] LAB WORK May 19, 2024 4:00am [facility] LAB WORK May 20, 2024 5:00am [facility] LAB WORK May 22, 2024 5:00am LABWORK May 26, 2024 5 :00am [facility] LAB WORK May 29, 2024 5:00am [facility] LAB WORK June 02, 2024 5:00am [facility] LAB WORK June 05, 2024 5:00am LABWORK June 09, 2024 5 :00am [facility] LAB WORK June 12, 2024 5:00am [facility] LAB WORK June 16 5:00am [facility] LAB WORK June 19 5:00am LABWORK June 23, 2024 5:00am [facility] LAB WORK June 26 5:00am [facility] LAB WORK June 30 5:00am [facility] LAB WORK July 03 5:00am [facility] LAB WORK July 07, 2024 4: 00am LABWORK July 11, 2024 5:00 am LABWORK July 14, 2024 5:0 0am [facility] LAB WORK July 17, 2024 4 :00am [facility] LAB WORK July 24, 2024 4 :00am LABWORK July 25, 2024 5:0 0am Chief Complaint Admit Date [facility] LAB WORK April 14, 2024 5:00am [facility] LAB WORK April 17 5:00am LABWORK April 21, 2024 5:00am [facility] LAB WORK April 24 4:00am LABWORK April 28, 2024 5:00am [facility] LAB WORK May 01 4:00am [facility] LAB WORK May 05 5:00am [facility] LAB WORK May 08, 2024 5:00am [facility] LAB WORK May 09, 2024 4:00am LABWORK May 12, 2024 5: 00am [facility] LAB WORK May 15, 2024 5:00am [facility] LAB WORK May 19, 2024 4:00am [facility] LAB WORK May 20, 2024 5:00am [facility] LAB WORK May 22, 2024 5:00am LABWORK May 26, 2024 5 :00am [facility] LAB WORK May 29, 2024 5:00am [facility] LAB WORK June 02, 2024 5:00am [facility] LAB WORK June 05, 2024 5:00am LABWORK June 09, 2024 5 :00am [facility] LAB WORK June 12, 2024 5:00am [facility] LAB WORK June 16 5:00am [facility] LAB WORK June 19 5:00am LABWORK June 23, 2024 5:00am [facility] LAB WORK June 26 5:00am [facility] LAB WORK June 30 5:00am [facility] LAB WORK July 03 5:00am [facility] LAB WORK July 07, 2024 4: 00am LABWORK July 11, 2024 5:00 am LABWORK July 14, 2024 5:0 0am [facility] LAB WORK July 17, 2024 4 :00am [facility] LAB WORK July 21, 2024 5 :00am [facility] LAB WORK July 24, 2024 4 :00am LABWORK July 25, 2024 5:0 0am [facility] LAB WORK July 31, 2024 4 :00am Chief Complaint Admit Date [facility] LAB WORK April 17 5:00am LABWORK April 21, 2024 5:00am [facility] LAB WORK April 24 4:00am LABWORK April 28, 2024 5:00am [facility] LAB WORK May 01 4:00am [facility] LAB WORK May 05 5:00am [facility] LAB WORK May 08, 2024 5:00am [facility] LAB WORK May 09, 2024 4:00am LABWORK May 12, 2024 5: 00am [facility] LAB WORK May 15, 2024 5:00am [facility] LAB WORK May 19, 2024 4:00am [facility] LAB WORK May 20, 2024 5:00am [facility] LAB WORK May 22, 2024 5:00am LABWORK May 26, 2024 5 :00am [facility] LAB WORK May 29, 2024 5:00am [facility] LAB WORK June 02, 2024 5:00am [facility] LAB WORK June 05, 2024 5:00am LABWORK June 09, 2024 5 :00am [facility] LAB WORK June 12, 2024 5:00am [facility] LAB WORK June 16 5:00am [facility] LAB WORK June 19 5:00am LABWORK June 23, 2024 5:00am [facility] LAB WORK June 26 5:00am [facility] LAB WORK June 30 5:00am [facility] LAB WORK July 03 5:00am [facility] LAB WORK July 07, 2024 4: 00am LABWORK July 11, 2024 5:00 am LABWORK July 14, 2024 5:0 0am [facility] LAB WORK July 17, 2024 4 :00am [facility] LAB WORK July 21, 2024 5 :00am [facility] LAB WORK July 24, 2024 4 :00am LABWORK July 25, 2024 5:0 0am [facility] LAB WORK July 28, 2024 5 :00am [facility] LAB WORK July 31, 2024 4 :00am Chief Complaint Admit Date [facility] LAB WORK April 24 4:00am LABWORK April 28, 2024 5:00am [facility] LAB WORK May 01 4:00am [facility] LAB WORK May 05 5:00am [facility] LAB WORK May 08, 2024 5:00am [facility] LAB WORK May 09, 2024 4:00am LABWORK May 12, 2024 5: 00am [facility] LAB WORK May 15, 2024 5:00am [facility] LAB WORK May 19, 2024 4:00am [facility] LAB WORK May 20, 2024 5:00am [facility] LAB WORK May 22, 2024 5:00am LABWORK May 26, 2024 5 :00am [facility] LAB WORK May 29, 2024 5:00am [facility] LAB WORK June 02, 2024 5:00am [facility] LAB WORK June 05, 2024 5:00am LABWORK June 09, 2024 5 :00am [facility] LAB WORK June 12, 2024 5:00am [facility] LAB WORK June 16 5:00am [facility] LAB WORK June 19 5:00am LABWORK June 23, 2024 5:00am [facility] LAB WORK June 26 5:00am [facility] LAB WORK June 30 5:00am [facility] LAB WORK July 03 5:00am [facility] LAB WORK July 07, 2024 4: 00am LABWORK July 11, 2024 5:00 am LABWORK July 14, 2024 5:0 0am [facility] LAB WORK July 17, 2024 4 :00am [facility] LAB WORK July 21, 2024 5 :00am [facility] LAB WORK July 24, 2024 4 :00am LABWORK July 25, 2024 5:0 0am [facility] LAB WORK July 28, 2024 5 :00am [facility] LAB WORK July 31, 2024 4 :00am LABWORK August 04, 2024 5:0 0am Chief Complaint Admit Date [facility] LAB WORK May 15, 2024 5:00am [facility] LAB WORK May 19, 2024 4:00am [facility] LAB WORK May 20, 2024 5:00am [facility] LAB WORK May 22, 2024 5:00am LABWORK May 26, 2024 5 :00am [facility] LAB WORK May 29, 2024 5:00am [facility] LAB WORK June 02, 2024 5:00am [facility] LAB WORK June 05, 2024 5:00am LABWORK June 09, 2024 5 :00am [facility] LAB WORK June 12, 2024 5:00am [facility] LAB WORK June 16 5:00am [facility] LAB WORK June 19 5:00am LABWORK June 23, 2024 5:00am [facility] LAB WORK June 26 5:00am [facility] LAB WORK June 30 5:00am [facility] LAB WORK July 03 5:00am [facility] LAB WORK July 07, 2024 4: 00am LABWORK July 11, 2024 5:00 am LABWORK July 14, 2024 5:0 0am [facility] LAB WORK July 17, 2024 4 :00am [facility] LAB WORK July 21, 2024 5 :00am [facility] LAB WORK July 24, 2024 4 :00am LABWORK July 25, 2024 5:0 0am [facility] LAB WORK July 28, 2024 5 :00am [facility] LAB WORK July 31, 2024 4 :00am LABWORK August 04, 2024 5:0 0am LABWORK August 07, 2024 5:00 am [facility] LAB WORK August 11, 2024 5: 00am [facility] LAB WORK August 14, 2024 5 :00am [facility] LAB WORK August 18, 2024 5 :00am Chief Complaint Admit Date [facility] LAB WORK May 20, 2024 5:00am [facility] LAB WORK May 22, 2024 5:00am LABWORK May 26, 2024 5 :00am [facility] LAB WORK May 29, 2024 5:00am [facility] LAB WORK June 02, 2024 5:00am [facility] LAB WORK June 05, 2024 5:00am LABWORK June 09, 2024 5 :00am [facility] LAB WORK June 12, 2024 5:00am [facility] LAB WORK June 16 5:00am [facility] LAB WORK June 19 5:00am LABWORK June 23, 2024 5:00am [facility] LAB WORK June 26 5:00am [facility] LAB WORK June 30 5:00am [facility] LAB WORK July 03 5:00am [facility] LAB WORK July 07, 2024 4: 00am LABWORK July 11, 2024 5:00 am LABWORK July 14, 2024 5:0 0am [facility] LAB WORK July 17, 2024 4 :00am [facility] LAB WORK July 21, 2024 5 :00am [facility] LAB WORK July 24, 2024 4 :00am LABWORK July 25, 2024 5:0 0am [facility] LAB WORK July 28, 2024 5 :00am [facility] LAB WORK July 31, 2024 4 :00am LABWORK August 04, 2024 5:0 0am LABWORK August 07, 2024 5:00 am [facility] LAB WORK August 11, 2024 5: 00am [facility] LAB WORK August 14, 2024 5 :00am [facility] LAB WORK August 18, 2024 5 :00am LABWORK August 28, 2024 5:0 0am Chief Complaint Admit Date [facility] LAB WORK May 22, 2024 5:00am LABWORK May 26, 2024 5 :00am [facility] LAB WORK May 29, 2024 5:00am [facility] LAB WORK June 02, 2024 5:00am [facility] LAB WORK June 05, 2024 5:00am LABWORK June 09, 2024 5 :00am [facility] LAB WORK June 12, 2024 5:00am [facility] LAB WORK June 16 5:00am [facility] LAB WORK June 19 5:00am LABWORK June 23, 2024 5:00am [facility] LAB WORK June 26 5:00am [facility] LAB WORK June 30 5:00am [facility] LAB WORK July 03 5:00am [facility] LAB WORK July 07, 2024 4: 00am LABWORK July 11, 2024 5:00 am LABWORK July 14, 2024 5:0 0am [facility] LAB WORK July 17, 2024 4 :00am [facility] LAB WORK July 21, 2024 5 :00am [facility] LAB WORK July 24, 2024 4 :00am LABWORK July 25, 2024 5:0 0am [facility] LAB WORK July 28, 2024 5 :00am [facility] LAB WORK July 31, 2024 4 :00am LABWORK August 04, 2024 5:0 0am LABWORK August 07, 2024 5:00 am [facility] LAB WORK August 11, 2024 5: 00am [facility] LAB WORK August 14, 2024 5 :00am [facility] LAB WORK August 18, 2024 5 :00am [facility] LAB WORK August 21, 2024 5 :00am LABWORK August 28, 2024 5:0 0am LABWORK September 01, 2024 5:0 0am Chief Complaint Admit Date [facility] LAB WORK June 05, 2024 5:00am LABWORK June 09, 2024 5 :00am [facility] LAB WORK June 12, 2024 5:00am [facility] LAB WORK June 16 5:00am [facility] LAB WORK June 19 5:00am LABWORK June 23, 2024 5:00am [facility] LAB WORK June 26 5:00am [facility] LAB WORK June 30 5:00am [facility] LAB WORK July 03 5:00am [facility] LAB WORK July 07, 2024 4: 00am LABWORK July 11, 2024 5:00 am LABWORK July 14, 2024 5:0 0am [facility] LAB WORK July 17, 2024 4 :00am [facility] LAB WORK July 21, 2024 5 :00am [facility] LAB WORK July 24, 2024 4 :00am LABWORK July 25, 2024 5:0 0am [facility] LAB WORK July 28, 2024 5 :00am [facility] LAB WORK July 31, 2024 4 :00am LABWORK August 04, 2024 5:0 0am LABWORK August 07, 2024 5:00 am [facility] LAB WORK August 11, 2024 5: 00am [facility] LAB WORK August 14, 2024 5 :00am [facility] LAB WORK August 18, 2024 5 :00am [facility] LAB WORK August 21, 2024 5 :00am [facility] LAB WORK August 25, 2024 4 :00am LABWORK August 28, 2024 5:0 0am LABWORK September 01, 2024 5:0 0am LABWORK September 04, 2024 5:00am Chief Complaint Admit Date [facility] LAB WORK June 05, 2024 5:00am LABWORK June 09, 2024 5 :00am [facility] LAB WORK June 12, 2024 5:00am [facility] LAB WORK June 16 5:00am [facility] LAB WORK June 19 5:00am LABWORK June 23, 2024 5:00am [facility] LAB WORK June 26 5:00am [facility] LAB WORK June 30 5:00am [facility] LAB WORK July 03 5:00am [facility] LAB WORK July 07, 2024 4: 00am LABWORK July 11, 2024 5:00 am LABWORK July 14, 2024 5:0 0am [facility] LAB WORK July 17, 2024 4 :00am [facility] LAB WORK July 21, 2024 5 :00am [facility] LAB WORK July 24, 2024 4 :00am LABWORK July 25, 2024 5:0 0am [facility] LAB WORK July 28, 2024 5 :00am [facility] LAB WORK July 31, 2024 4 :00am LABWORK August 04, 2024 5:0 0am LABWORK August 07, 2024 5:00 am [facility] LAB WORK August 11, 2024 5: 00am [facility] LAB WORK August 14, 2024 5 :00am [facility] LAB WORK August 18, 2024 5 :00am [facility] LAB WORK August 21, 2024 5 :00am [facility] LAB WORK August 25, 2024 4 :00am LABWORK August 28, 2024 5:0 0am LABWORK September 01, 2024 5:0 0am LABWORK September 04, 2024 5:00am LABWORK September 15, 2024 5:00a m Chief Complaint Admit Date [facility] LAB WORK June 19 5:00am LABWORK June 23, 2024 5:00am [facility] LAB WORK June 26 5:00am [facility] LAB WORK June 30 5:00am [facility] LAB WORK July 03 5:00am [facility] LAB WORK July 07, 2024 4: 00am LABWORK July 11, 2024 5:00 am LABWORK July 14, 2024 5:0 0am [facility] LAB WORK July 17, 2024 4 :00am [facility] LAB WORK July 21, 2024 5 :00am [facility] LAB WORK July 24, 2024 4 :00am LABWORK July 25, 2024 5:0 0am [facility] July 28, 2024 5 :00am [facility] July 31, 2024 4 :00am LABWORK August 04, 2024 5:0 0am LABWORK August 07, 2024 5:00 am [facility] August 11, 2024 5: 00am [facility] August 14, 2024 5 :00am [facility] August 18, 2024 5 :00am [facility] August 21, 2024 5 :00am [facility] August 25, 2024 4 :00am LABWORK August 28, 2024 5:0 0am LABWORK September 01, 2024 5:0 0am LABWORK September 04, 2024 5:00am [facility] September 08, 2024 4:00 am [facility] September 11, 2024 5:00 am LABWORK September 15, 2024 5:00a m [facility] September 25, 2024 5:0 0am [facility] September 30, 2024 4:0 0am Chief Complaint Admit Date [facility] June 12, 2024 5:00am [facility] June 16 5:00am [facility] June 19 5:00am LABWORK June 23, 2024 5:00am [facility] June 26 5:00am [facility] June 30 5:00am [facility] July 03 5:00am [facility] July 07, 2024 4: 00am LABWORK July 11, 2024 5:00 am LABWORK July 14, 2024 5:0 0am [facility] July 17, 2024 4 :00am [facility] July 21, 2024 5 :00am [facility] July 24, 2024 4 :00am LABWORK July 25, 2024 5:0 0am [facility] July 28, 2024 5 :00am [facility] July 31, 2024 4 :00am LABWORK August 04, 2024 5:0 0am LABWORK August 07, 2024 5:00 am [facility] August 11, 2024 5: 00am [facility] August 14, 2024 5 :00am [facility] August 18, 2024 5 :00am [facility] August 21, 2024 5 :00am [facility] August 25, 2024 4 :00am LABWORK August 28, 2024 5:0 0am LABWORK September 01, 2024 5:0 0am LABWORK September 04, 2024 5:00am [facility] September 08, 2024 4:00 am LABWORK September 15, 2024 5:00a m Chief Complaint Admit Date [facility] July 07, 2024 4: 00am LABWORK July 11, 2024 5:00 am LABWORK July 14, 2024 5:0 0am [facility] July 17, 2024 4 :00am [facility] July 21, 2024 5 :00am [facility] July 24, 2024 4 :00am LABWORK July 25, 2024 5:0 0am [facility] July 28, 2024 5 :00am [facility] July 31, 2024 4 :00am LABWORK August 04, 2024 5:0 0am LABWORK August 07, 2024 5:00 am [facility] August 11, 2024 5: 00am [facility] August 14, 2024 5 :00am [facility] August 18, 2024 5 :00am [facility] August 21, 2024 5 :00am [facility] August 25, 2024 4 :00am LABWORK August 28, 2024 5:0 0am LABWORK September 01, 2024 5:0 0am LABWORK September 04, 2024 5:00am HALF-WAY LAB WORK September 08, 2024 4:00 am HALF-WAY LAB WORK September 11, 2024 5:00 am LABWORK September 15, 2024 5:00a m HALF-WAY LAB WORK September 18, 2024 5:0 0am HALF-WAY LAB WORK September 22, 2024 5:0 0am HALF-WAY LAB WORK September 25, 2024 5:0 0am HALF-WAY LAB WORK September 30, 2024 4:0 0am HALF-WAY LAB WORK October 02, 2024 5:0 0am HALF-WAY LAB WORK October 09, 2024 5:0 0am Reason for Referral Specialty Diagnoses / Procedures Referred By Aki kumari Referred To Contact Urology Diagnoses Other fatigue Lanette Munguia, [address] [place] [address] [facility] [address] [place] [address] Referral ID Status Reason Start Date Expiration Date V isits Requested Visits Authorized [id number] Open Specialty Services Required 11/01/2021 11/01/2022 1 1 Scheduling Instructions [facility] - [address] , [address] [place], [place] [address] Specialty Diagnoses / Procedures Referred By Aki kumari Referred To Contact IP Unit Diagnoses Heel ulceration, left, with unspecified severity (HCC) Henry Hidalgo PA [address] [place] [address] [facility] [address] [place] [id number] Referral ID Status Reason Start Date Expiration Date V isits Requested Visits Authorized [id number] Open Specialty Services Required 12/22/2021 12/22/2022 1 1 Scheduling Instructions [facility] - [address] [place] [address] Comments Please use the parking lot located on [address] or [address]. There are handicap parking spots located in a small lot beside the wound care entrance off of [address] [employer] [employer]. Please be advised there is a small incline from those handicap spots to our main door. Bring photo ID and insurance card to photocopy. Wear loose fitting clothing (to easily access wound). Bring list of medications (or can be sent by office). Check in at Registration for your first visit. Please call us directly with any questions [phone]. We look forward to helping you heal. Specialty Diagnoses / Procedures Referred By Contdesiree t Referred To Contact Radiology Diagnoses Left flank pain Calculus of ureter Procedures CT abdomen pelvis wo IV contrast Rebecca Buck MD [address] [place] [address] Referral ID Status Reason Start Date Expiration Date V isits Requested Visits Authorized [id number] Pending Review 08/13/2023 08/12/2024 1 1 Referral ID Status Reason Start Date Expiration Date Visits Re quested Visits Authorized [id number] Closed 08/17/2023 09/16/2023 1 1 Additional Source Comments Source Comments (unrecognize d section and content) In the event this informatio n is protected by the Federal Confidentiality of Alcohol and Drug Abuse Patient Records regulations: The Federal rules restrict any use of the information to criminally investigate or prosecute any alcohol or drug abuse patient.[facility] the event this information is protected by the Federal Confidentiality of Alcohol and Drug Abuse Patient Records regulations: The Federal rules restrict any use of the information to criminally investigate or prosecute any alcohol or drug abuse patient.[facility] (unrecognized sect ion and content) No Status Records FoundNo Status Records FoundNo Status Records FoundNo Status Records FoundNo Status Records FoundNo Status Records FoundNo Status Records FoundNo Status Records FoundNo Status Records FoundNo Status Records Found INFORMATION SOURCE (unrecogn ized section and content) DATE CREATED AUTHOR 05/20/2021 [facility] DATE CREATED AUTHOR AUTHOR'S ORGANIZ ATION 06/07/2021 [facility] DATE CREATED AUTHOR AUTHOR'S ORGANIZ ATION 08/02/2021 [facility] DATE CREATED AUTHOR AUTHOR'S ORGANIZ ATION 12/09/2021 [facility] DATE CREATED AUTHOR AUTHOR'S ORGANIZ ATION 12/29/2021 [facility] DATE CREATED AUTHOR AUTHOR'S ORGANIZ ATION 02/04/2022 [facility] DATE CREATED AUTHOR AUTHOR'S ORGANIZ ATION 03/03/2022 [facility] DATE CREATED AUTHOR AUTHOR'S ORGANIZ ATION 09/15/2023 [facility] DATE CREATED AUTHOR AUTHOR'S ORGANIZ ATION 12/21/2024 [facility] Reason for Visit (unrecogniz ed section and content) Reason Comments Missed Appointment Reason Comments Leg Swelling Blood clots Reason Comments Altered Mental Status Pt presents to ED via [facility] for complaint listed. Pt is from [facility]. Pt's LKW was 1000 hours today. Per EMS, pt had a - [place]. Pt denies CP, SOB, and N/V. Pt seems slow to respond, slightly confused at this time. Reason Comments Osteomyelitis Patient from [facility] did xrays on left lower leg and and have concerns for possible osteomyelitis A&Ox2 to self and place, stated year 2022 [facility] Reason Comments Fall Patient had unwitnes sed fall at SNF landed on butt. Is on thinners, denies [...] Buck MD [address] [place] [address] Referral ID Status Reason Start Date Expiration Date Visits Re quested Visits Authorized [id number] Closed 08/17/2023 09/16/2023 1 1 Reason Comments [...] Care Provider Active Start: September 15, 2024 Calros NOVAK Attending Provider Active Sta rt: September [...] 20, 2024 End: May 20, 2024 Dr. Kvgn NOVAK MD Attending Provider Active Start: May 20, 2024 End: May 20, 2024 Team Status: Active Member Role Status Dates Dr. Monika Staley MD Primary Care Provider Active Start: August 07, 2024 Carlos NOVAK Attending Provider Active Sta rt: August 07, 2024 Team Status: Active Member Role Status Dates Dr. Moinka Staley MD Primary Care Provider Active Start: [...] Status Dates Carlos NOVAK Attending Provider Active [employer] Relationship Specialty Start Date End Date Mateus Burris [address] [place] [address] PCP - General Family Practice 11/12/19 [employer] Relationship Specialty [place] [address] [place] [address] PCP - General Family Medicine 09/09/20 [employer] Relationship Specialty [place] [address] [place] [address] PCP - General Family Medicine 09/09/20 [employer] Relationship Specialty [place] [address] [place] [address] PCP - General Family Medicine 09/09/20 [employer] Relationship Specialty Start Date End Date Carlos Cavazos MD [address] [facility] [address] [place] [address] PCP - General Internal Medicine 02/20/22 Team [...] Monika Staley MD Primary Care Provider Active [employer] Relationship Specialty Start Date End Date Carlos Cavazos [address] [place] [address] PCP - General 12/21/21 Rebecca Buck MD [address] [place] [address] Surgeon Urology 06/25/23 Team Status: Inactive Member [...] NOVAK Attending Provider, Referring Provi lupillo Active [employer] Relationship Specialty Start Date End Date Carlos Cavazos [address] [place] [phone] PCP - General 12/21/21 Rebecca Buck MD [address] [address] Surgeon Urology 06/25/23 [employer] Relationship Specialty Start Date End Date Carlos Cavazos [address] [place], [place] [phone] PCP - General 12/21/21 Rebecca Buck MD [address] [address] Surgeon Urology 06/25/23 [employer] Relationship Specialty Start Date End Date MaribelCarlos meredith [address] [place] [phone] PCP - General 12/21/21 Rebecca Buck MD [address] [address] Surgeon Urology 06/25/23 [employer] Relationship Specialty Start Date End Date MaribelkameronCarlos [address] [place] [phone] PCP - General 12/21/21 Rebecca Buck MD [address] [address] Surgeon Urology 06/25/23 [employer] Relationship Specialty Start Date End Date Carlos Cavazos [address] [place] [phone] PCP - General 12/21/21 Rebecca Buck MD [address] [address] Surgeon Urology 06/25/23 [employer] Relationship Specialty Start Date End Date Carlos Cavazos [address] [place] [phone] PCP - General 12/21/21 Rebecca Buck MD [address] [address] Surgeon Urology 06/25/23 Team Status: Inactive Member Role Status Dates Dr. Monika Staley MD Primary Care Provider Active Start: March 13, 2024 End: March 13, 2024 [facility] [address] Attending Provider Active Start: March 13, 2024 [...] March 17, 2024 End: March 17, 2024 [facility] [address] Attending Provider Active Start: March 17, 2024 End: March 17, 2024 Team Status: Inactive Member Role Status Dates Dr. Monika Staley MD Primary Care Provider Active Start: March 18, 2024 End: March 18, 2024 [facility] [address] Attending Provider Active Start: March 18, 2024 [...] March 20, 2024 End: March 20, 2024 [facility] [address] Attending Provider Active Start: March 20, 2024 [...] March 27, 2024 End: March 27, 2024 [facility] [address] Attending Provider Active Start: March 27, 2024 [...] Status: Active Member Role Status Dates Dr. oMnika Staley MD Primary Care Provider Active Start: July 07, 2024 [facility] [address] Attending Provider Active Start: July 07, 2024 [...] Status: Inactive Member Role Status Dates Dr. Moinka Staley MD Primary Care Provider Active Start: [...] Status: Inactive Member Role/Relationship Status Dates Dr. oMnika Staley MD Primary Care Provider Active Start: [...] July 24, 2024 End: July 24, 2024 Kraon NOVAK MD Referring Provider Active Start: July [...] Active Member Role/Relationship Status Dates Dr. Monika Stalye MD Primary Care Provider Active Start: October [...] Julio RN) 0816 (Given - Provider: Rosanne Hoff, AYUSH)1355 (Given - Provider: Rosanne Hoff, AYUSH)192 (Given - Provider: Lisa Ashby RN) 1024 (Given - Provider: Fabi Subramanian, AYUSH)1547 [...] 911 (New Bag - Provider: Rosanne Hoff RN)1029 (Stopped - Provider: Rosanne Hoff RN)2034 (New Bag - Provider: Katlin Julio RN)2103 (Stopped - Provider: Katlin Julio RN) 0816 (New Bag - Provider: Rosanne Hoff RN)0953 (Stopped - Provider: Rosanne Hoff RN)2055 (New Bag - Provider: Lisa Ashby, AYUSH)2144 (Stopped - Provider: Lisa Ashby, RN) 1026 (New Bag - Provider: Fabi [...] 09 (Given - Provider: Rosanne Hoff RN) 0817 (Given - Provider: Rosanne Hoff RN) 1025 [...] mg, Oral, ONCE Warfarin, 1 dose, On Sun10/29/21 at 1800, Indication of Use: Treatment-DVT/PE, What [...] 8 HOURS, First dose on Sun10/31/21 at 2015, Until Discontinued, Flush line with 3-5 mL [...] BE BASED ON THE PRIMARY CLINICAL RECORDS. [facility]. provides no warranty or guarantee of the accuracy or completeness of information in this document.
[2024-12-22 09:04] LABS: Prothrombin Time (Protime)PT. 28.8 SECONDS (11.7-14.9)
== END ==
LOC: OLS.SANC 04:00
PROVIDERS: PCP General Practice
DX: Z79.01 Long term (current) use of 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 (principal)
CPT/HCPCS: 36415; 85610

== ENCOUNTER → 2024-12-24 05:00 | Outpatient (REF) | payer MEDICARE, MEDICAID, SELFPAY ==
--- OUTSIDE RECORDS SUMMARY | 2024-12-24 04:01 | XMS RPT_ITS | CCD ---
Author Organization [facility] Care Team Providers Care Performance Improvement Analyst Name Role Phone Mateus Burris Primary Care [...] Provider Monika Staley MD Primary Care Provider [phone] Monika Staley MD Primary Care Provider Carlos Cavzaos Primary Care Unavailable Carlos Cavazos Referring Unavailable [...] VALLADARES, Dr. Monika Horner Primary Care Provider [facility] Attending Provider [phone] Carlos Nelson Attending Provider Jonh Pascual MD, [...] Primary Care Unavailable Carlos Nelson Attending Unavailable [place] OLSKaron Referring Unavail able Luís, Shiela Primary Care Unavailable [place] Karon NOVAK Attending Unavail able [place] OLSKaron Referring Unavail able Luís, Shiela Primary Care Unavailable [place] OLSKaron Attending Unavail able Luís, Shiela Primary Care Unavailable KatsaCarlos Villavicencio Attending Unavailable Luís, Shiela Primary Care Unavailable [facility] [place] Attending Tricia bustamantele Luís, Shiela Primary Care Unavailable Katsaros Carlos [...] Unavailable Luís, Shiela Primary Care Unavailable [facility], [place] Attending Unavai lable Luís, Shiela Primary Care [...] Attending Unavailable Luís, Shiela Primary Care Unavailable [facility] [place] Attending Unavai lable Luís, Shiela Primary Care Unavailable [place] OLS, Karon Attending Unavail able [place] OLS, Melindaer Referring [...] OLS, Melindaer Attending Unavail able [place] OLS, Carlaaveer Referring Unavail able Luís, Shiela Primary Care Unavailable [place] OLS, Carlaaveer Attending Unavail able Luís, Shiela Primary Care Unavailable Katsaros OLS, Peter Attending Unavailable Luís, Shiela Primary Care Unavailable Katsaros OLS, Peter Attending Unavailable Luís, Shiela Primary Care Unavailable Katsaros OLS, Peter Attending Unavailable [place] OLS, Mahaveer Referring Unavail [...] Mahaveer Attending Unavail able [place] OLS, Carlaaveer Referring Unavail able Luís, Shiela Primary Care Unavailable [place] OLS, Mahaveer Attending Unavail able Luís, Shiela Primary [facility] Unavailable [facility] [place] Attending Unavai lable Luís, Shiela Primary Care Unavailable Katsaros OLS, Peter Attending Unavailable Luís, Shiela Primary Care Unavailable Kvng Sen Attending Unavailable Luís, Shiela Primary Care Unavailable [facility] [place] Attending Unavai lable Luís, Shiela Primary Care Unavailable [facility] [place] Attending Unavai lable Luís, Shiela Primary Care Unavailable Katsaros Carlos NOVAK Attending Unavailable Luís, Shiela Primary Care Unavailable [place] Karon NOVAK Attending Unavail able Luís, Shiela Primary Care Unavailable Katsaros OLS, Peter Attending Unavailable Luís, Shiela Primary Care Unavailable [facility] [place] Attending Unavai lable Luís, Shiela Primary Care Unavailable Crisostomo Kvng NOVAK Attending Unavailable Luís, Shiela Primary Care Unavailable Katsaros OLSCarlos Attending Unavailable Luís, Shiela Primary Care Unavailable [facility], [place] Attending Unavai lable Luís, Shiela Primary Care Unavailable [facility] [place] Attending Unavai lable Luís, Shiela Primary Care Unavailable [facility] [place] Attending Unavai lable Luís, Shiela Primary Care Unavailable Katsaros Carlos NOVAK Attending Unavailable Luís, Shiela Primary Care Unavailable [facility] [place] Attending Unavai lable Luís, Shiela Primary Care Unavailable [facility] [place] Attending Unavai lable CrisostomoKvng Levy Referring Unavailable Luís, Shiela Primary Care Unavailable Crisostomo Kvng NOVAK Attending Unavailable [facility] [place] Attending Unavai lable Luís, Shiela Primary Care Unavailable Luís, Shiela Primary Care Unavailable [facility] [place] Attending Unavai lable Luís, Shiela Primary Care Unavailable [place] Karon NOVAK Attending Unavail able Luís, Shiela Primary Care Unavailable [place] Karon NOVAK Attending Unavail able Luís, Shiela Primary Care Unavailable Katsaros Carlos NOVAK Attending Unavailable Luís, Shiela Primary Care Unavailable Katsaros Carlos NOVAK Attending Unavailable [place] Karon NOVAK Referring Unavail able Luís, Shiela Primary Care Unavailable [place] Karon NOVAK Attending Unavail able Luís, Shiela Primary Care Unavailable Katsaros Carlos NOVAK Attending Unavailable Luís, Shiela Primary Care Unavailable Crisostomo OLSElizabethet Attending Unavailable Luís, Shiela Primary Care Unavailable Crisostomo OLSElizabethet Attending Unavailable Crisostomo OLS, Babbaljeet Referring Unavailable Luís, Shiela Primary Care Unavailable Crisostomo OLS, Elizabethet Attending Unavailable Luís, Shiela Primary Care Unavailable Katsaros OLS, Peter Attending Unavailable Luís, Shiela Primary Care Unavailable Crisostomo OLS, Vicentebaljeet Attending Unavailable Crisostomo OLS, Babbaljeet Referring Unavailable Luís, Shiela Primary Care Unavailable Crisostomo OLS, Babsigifredojeet Attending Unavailable Luís, Shiela Primary Care Unavailable [...] Care Unavailable Crisostomo OLS, Elizabethet Attending Unavailable [place] OLS, Carlaaveer Referring Unavail able [...] Luís, Shiela Primary Care Unavailable [facility] [place] Attending Unavai lable Luís, Shiela Primary Care [...] Unavailable [place] OLS, Melindaer Attending Unavail able Crisostomo OLS, Kvng Referring Unavailable Luís, Shiela Primary Care Unavailable Crisostomo OLS, Kvng Attending Unavailable Luís, Shiela Primary Care Unavailable Katsaros OLS, Peter Attending Unavailable Crisostomo OLS, Elizabethet Referring Unavailable Luís, Shiela Primary Care Unavailable Crisostomo OLS, Kvng Attending Unavailable Luís, Shiela Primary Care Unavailable [place] OLS, Karon Attending Unavail able Luís, Shiela Primary Care Unavailable Katsaros OLS, Carlos Attending Unavailable Luís, Shiela Primary Care Unavailable [facility] [place] Attending Unavai lable [place] OLS, Karon Referring Unavail able Luís, Shiela Primary Care Unavailable [place] OLS, Karon Attending Unavail able Luís, Shiela Primary Care Unavailable Katsaros OLS, Carlos Attending Unavailable Luís, Shiela Primary Care Unavailable [place] OLS, Karon Attending Unavail able Allergies Allergy Classification Reported Allergen(s) Allergy Type Date of Onset Reaction(s) Facility (13 sources) [facility]: (15 sources) Alcohol Propensity to adverse reactions to drug 3 Rash, Hives, Other: See Comments, Other [facility] Work Phone: (1 source) Latex Drug Allergy 0 Rash [facility] (8 sources) Cortisone Drug Allergy 2 [facility] (7 sources) Latex Allergy to substance 0 Rash [facility] Medications Current Medications Medication Drug Class(es) Dates Sig (Normalized) Sig (Original) Acetaminophen (10 sources) Start: 10-21-2021 acetaminophen (TYLENOL) tablet 650 mg Start: 09-14-2021 acetaminophen (TYLENOL) 325 MG tablet 650 mg every 6 hours as needed 0 09/14/2021 Active take 2 tablets by mo [facility] every eight hours acetaminophen (TYLENOL) 325 [...] Start: 11-01-2021 take 1 capsule by mo [facility] once daily tamsulosin (FLOMAX) 0.4 MG [...] on above: Take 1 capsule by mo [facility] three times daily. Complete Multi-Vitamin CHEW (4 [...] Active docusate sodium 50 mg / sennosides, [facility] 8.6 mg oral tablet (1 source) Start: [...] Units subcutaneously with meals and at bedtime. Welsh Panax Ginseng 100 MG CAPS (8 sources) Welsh Panax Ginseng 100 MG CAPS Quantity: 0 Refills: 0 Ordered: 06-Nov-2019 DO Active Welsh Panax Ginseng 100 MG Oral Capsule (4 sources) Welsh Panax Ginseng 100 MG Oral Capsule Refills: 0 Active Welsh Panax Gin mayuri 100 MG Oral Capsule Refills: 0 DO Active Welsh Panax Ginseng 100 MG Oral Capsule (2 sources) Welsh Panax Gin mayuri 100 MG Oral Capsule [...] once daily. 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 0 Active Comment on above: Take by mouth. petrolatum 0.41 mg/mg topical ointment (1 source) Start : 08-20 white petrolatum (AQUAPHOR) 41 % topical ointment Apply to affected area once daily. 0 08/20/2021 Active Comment on above: Apply to affected ar ea once daily. 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, [address] PT Coag (PPP) [Time] 28.8 s High 11.7-14.[address] [facility] Comment on above: Order Comment: 411.1 Performed By: #### L 300.3900 ####[facility] [address] [place], [address] Prothrombin Time w/INRon INR Coag (PPP) [Relative time] 2.4 {INR} Normal [facility] Comment on above: Order Comment: 411.1 Performed By: #### L 300.3900 ####[facility] [address] [place], [address] PT Coag (PPP) [Time] 26.7 s High 11.7-14.[address] [facility] Comment on above: Order Comment: 411.1 Performed By: #### L 300.3900 ####[facility] [address] [place], [address] Prothrombin Time w/INRon INR Coag (PPP) [Relative time] 2.3 {INR} Normal [facility] Comment on above: Order Comment: 411.1 Performed By: #### L 300.3900 ####[facility] [address] [place], [address] PT Coag (PPP) [Time] 25.7 s High 11.7-14.[address] [facility] Comment on above: Order Comment: 411.1 Performed By: #### L 300.3900 ####[facility] [address] [place], [address] Prothrombin Time w/INRon INR Coag (PPP) [Relative time] 2.2 {INR} Normal [facility] Comment on above: Order Comment: 411-1 Performed By: #### L 300.3900 ####[facility] [address] [place], [address] PT Coag (PPP) [Time] 24.7 s High 11.7-14.[address] [facility] Comment on above: Order Comment: 411-1 Performed By: #### L 300.3900 ####[facility] [address] [place], [address] Prothrombin Time w/INRon INR Coag (PPP) [Relative time] 2.2 {INR} Normal [facility] Comment on above: Order Comment: 411.1 Performed By: #### L 300.3900 ####[facility] [address] [place], [address] PT Coag (PPP) [Time] 25.0 s High 11.7-14.[address] [facility] Comment on above: Order Comment: 411.1 Performed By: #### L 300.3900 ####[facility] [address] [place], [address] Prothrombin Time w/INRon INR Coag (PPP) [Relative time] 2.3 {INR} Normal [facility] Comment on above: Order Comment: 411.1 Performed By: #### L 300.3900 ####[facility] [address] [place], [address] PT Coag (PPP) [Time] 25.9 s High 11.7-14.[address] [facility] Comment on above: Order Comment: 411.1 Performed By: #### L 300.3900 ####[facility] [address] [place], [address] Prothrombin Time w/INRon INR Coag (PPP) [Relative time] 2.5 {INR} Normal [facility] Comment on above: Order Comment: 411.1 Performed By: #### L 300.3900 ####[facility] [address] [place], [address] PT Coag (PPP) [Time] 27.3 s High 11.7-14.[address] [facility] Comment on above: Order Comment: 411.1 Performed By: #### L 300.3900 ####[facility] [address] [place], [address] Prothrombin Time w/INRon INR Coag (PPP) [Relative time] 2.3 {INR} Normal [facility] Comment on above: Order Comment: 411-1 Performed By: #### L 300.3900 ####[facility] [address] [place], [address] PT Coag (PPP) [Time] 26.0 s High 11.7-14.[address] [facility] Comment on above: Order Comment: 411-1 Performed By: #### L 300.3900 ####[facility] [address] [place], [address] Prothrombin Time w/INRon INR Coag (PPP) [Relative time] 3.1 {INR} Normal [facility] Comment on above: Order Comment: 411-1 Performed By: #### L 300.3900 ####[facility] [address] [place], [address] PT Coag (PPP) [Time] 32.8 s High 11.7-14.[address] [facility] Comment on above: Order Comment: 411-1 Performed By: #### L 300.3900 ####[facility] [address] [place], [address] Prothrombin Time w/INRon INR Coag (PPP) [Relative time] 3.3 {INR} Normal [facility] Comment on above: Order Comment: 411.1 Performed By: #### L 300.3900 ####[facility] [address] [place], [address] PT Coag (PPP) [Time] 34.3 s High 11.7-14.[address] [facility] Comment on above: Order Comment: 411.1 Performed By: #### L 300.3900 ####[facility] [address] [place], [address] Prothrombin Time w/INRon INR Coag (PPP) [Relative time] 2.8 {INR} Normal [facility] Comment on above: Order Comment: 411.2 Performed By: #### L 300.3900 ####[facility] [address] [place], [address] PT Coag (PPP) [Time] 30.0 s High 11.7-14.[address] [facility] Comment on above: Order Comment: 411.2 Performed By: #### L 300.3900 ####[facility] [address] [place], [address] Prothrombin Time w/INRon INR Coag (PPP) [Relative time] 3.0 {INR} Normal [facility] Comment on above: Order Comment: 411.2 Performed By: #### L 300.3900 ####[facility] [address] [place], [address] PT Coag (PPP) [Time] 32.0 s High 11.7-14.[address] [facility] Comment on above: Order Comment: 411.2 Performed By: #### L 300.3900 ####[facility] [address] [place], [address] Prothrombin Time w/INRon INR Coag (PPP) [Relative time] 2.9 {INR} Normal [facility] Comment on above: Order Comment: 411.2 Performed By: #### L 300.3900 ####[facility] [address] [place], [address] PT Coag (PPP) [Time] 30.7 s High 11.7-14.[address] [facility] Comment on above: Order Comment: 411.2 Performed By: #### L 300.3900 ####[facility] [address] [place], [address] Prothrombin Time w/INRon INR Coag (PPP) [Relative time] 2.2 {INR} Normal [facility] Comment on above: Order Comment: 411.2 Performed By: #### L 300.3900 ####[facility] [address] [place], [address] PT Coag (PPP) [Time] 24.7 s High 11.7-14.[address] [facility] Comment on above: Order Comment: 411.2 Performed By: #### L 300.3900 ####[facility] [address] [place], [address] Prothrombin Time w/INRon INR Coag (PPP) [Relative time] 2.6 {INR} Normal [facility] Comment on above: Order Comment: 411.2 Performed By: #### L 300.3900 ####[facility] [address] [place], [address] PT Coag (PPP) [Time] 28.7 s High 11.7-14.[address] [facility] Comment on above: Order Comment: 411.2 Performed By: #### L 300.3900 ####[facility] [address] [place], [address] Prothrombin Time w/INRon INR Coag (PPP) [Relative time] 3.1 {INR} Normal [facility] Comment on above: Order Comment: 411.2 Performed By: #### L 300.3900 ####[facility] [address] [place], [address] PT Coag (PPP) [Time] 33.0 s High 11.7-14.[address] [facility] Comment on above: Order Comment: 411.2 Performed By: #### L 300.3900 ####[facility] [address] [place], [address] Prothrombin Time w/INRon INR Coag (PPP) [Relative time] 3.0 {INR} Normal [facility] Comment on above: Order Comment: 411-2 Performed By: #### L 300.3900 ####[facility] [address] [place], [place], [phone] PT Coag (PPP) [Time] 31.4 s High 11.7-14.[address] [facility] Comment on above: Order Comment: 411-2 Performed By: #### L 300.3900 ####[facility] [address] [place], [place], [phone] International normalized rat io (INR) calculationOrdered By: Karon Corrales on 10-30-2024 INR Coag (Bld) [Relative time] 2.4 {INR} [facility] Prothrombin Time w/INRon INR Coag (PPP) [Relative time] 2.4 {INR} Normal [facility] Comment on above: Performed By: #### L 300.3900 ####[facility] [address] [place], [place], [phone] PT Coag (PPP) [Time] 26.3 s High 11.7-14.[address] [facility] Comment on above: Performed By: #### L 300.3900 ####[facility] [address] [place], [place], [phone] Prothrombin timeOrdered By: Karon Corrales on 10-30-2024 PT Coag (PPP) [Time] 26.3 s High 11.7-14.[address] [facility] International normalized rat io (INR) calculationOrdered By: Karon Corrales on 10-27-2024 INR Coag (Bld) [Relative time] 2.2 {INR} [facility] Prothrombin Time w/INRon INR Coag (PPP) [Relative time] 2.2 {INR} Normal [facility] Comment on above: Order Comment: 411.2 Performed By: #### L 300.3900 ####[facility] [address] [place], [place], [address] Prothrombin timeOrdered By: Karon Corrales on 10-27-2024 PT Coag (PPP) [Time] 24.5 s High 11.7-14.[address] [facility] Comment on above: Order Comment: 411.2 Performed By: #### L 300.3900 ####[facility] [address] [place], [place], [address] International normalized rat io (INR) calculationOrdered By: Karon Corrales on 10-23-2024 INR Coag (Bld) [Relative time] 2.5 {INR} [facility] Prothrombin Time w/INRon INR Coag (PPP) [Relative time] 2.5 {INR} Normal [facility] Comment on above: Order Comment: 411.2 Performed By: #### L 300.3900 ####[facility] [address] [place], [place], [id number] PT Coag (PPP) [Time] 27.9 s High 11.7-14.[address] [facility] Comment on above: Order Comment: 411.2 Performed By: #### L 300.3900 ####[facility] [address] [place], [place], [phone] Prothrombin timeOrdered By: Karon Corrales on 10-23-2024 PT Coag (PPP) [Time] 27.9 s High 11.7-14.[address] [facility] International normalized rat io (INR) calculationOrdered By: Karon Corrales on 10-20-2024 INR Coag (Bld) [Relative time] 3.1 {INR} [facility] Prothrombin Time w/INRon INR Coag (PPP) [Relative time] 3.1 {INR} Normal [facility] Comment on above: Order Comment: 411.2 Performed By: #### L 300.3900 ####[facility] [address] [place], [address] PT Coag (PPP) [Time] 32.8 s High 11.7-14.[address] [facility] Comment on above: Order Comment: 411.2 Performed By: #### L 300.3900 ####[facility] [address] [place], [place], [phone] Prothrombin timeOrdered By: Karon Corrales on 10-20-2024 PT Coag (PPP) [Time] 32.8 s High 11.7-14.[address] [facility] International normalized rat io (INR) calculationOrdered By: Karon Corrales on 10-16-2024 INR Coag (Bld) [Relative time] 2.8 {INR} [facility] Prothrombin Time w/INRon INR Coag (PPP) [Relative time] 2.8 {INR} Normal [facility] Comment on above: Order Comment: 411.2 Performed By: #### L 300.3900 ####[facility] [address] [place], [address] PT Coag (PPP) [Time] 30.4 s High 11.7-14.[address] [facility] Comment on above: Order Comment: 411.2 Performed By: #### L 300.3900 ####[facility] [address] [place], [address] Prothrombin timeOrdered By: Karon Corrales on 10-16-2024 PT Coag (PPP) [Time] 30.4 s High 11.7-14.[address] [facility] International normalized rat io (INR) calculationOrdered By: Carlos Cavazos on 10-13-2024 INR Coag (Bld) [Relative time] 1.9 {INR} [facility] Prothrombin Time w/INRon INR Coag (PPP) [Relative time] 1.9 {INR} Normal [facility] Comment on above: Order Comment: 411-2 Performed By: #### L 300.3900 ####[facility] [address] [place], [address] PT Coag (PPP) [Time] 22.4 s High 11.7-14.[address] [facility] Comment on above: Order Comment: 411-2 Performed By: #### L 300.3900 ####[facility] [address] [place], [address] Prothrombin timeOrdered By: Carlos Cavazos on 10-13-2024 PT Coag (PPP) [Time] 22.4 s High 11.7-14.[address] [facility] International normalized rat io (INR) calculationOrdered By: Karon Corrales on 10-09-2024 INR Coag (Bld) [Relative time] 3.0 {INR} [facility] Prothrombin Time w/INRon INR Coag (PPP) [Relative time] 3.0 {INR} Normal [facility] Comment on above: Order Comment: 411.2 Performed By: #### L 300.3900 ####[facility] [address] [place], [address] Prothrombin timeOrdered By: Karon Corrales on 10-09-2024 PT Coag (PPP) [Time] 31.8 s High 11.7-14.[address] [facility] Comment on above: Order Comment: 411.2 Performed By: #### L 300.3900 ####[facility] [address] [place], [address] International normalized rat io (INR) calculationOrdered By: Carlos Cavazos on 10-06-2024 INR Coag (Bld) [Relative time] 2.7 {INR} [facility] Prothrombin Time w/INRon INR Coag (PPP) [Relative time] 2.7 {INR} Normal [facility] Comment on above: Order Comment: 411-2 Performed By: #### L 300.3900 ####[facility] [address] [place], [address] PT Coag (PPP) [Time] 29.6 s High 11.7-14.[address] [facility] Comment on above: Order Comment: 411-2 Performed By: #### L 300.3900 ####[facility] [address] [place], [place], [phone] Prothrombin timeOrdered By: Carlos Cavazos on 10-06-2024 PT Coag (PPP) [Time] 29.6 s High 11.7-14.[address] [facility] International normalized rat io (INR) calculationOrdered By: Karon Corrales on 10-02-2024 INR Coag (Bld) [Relative time] 2.3 {INR} [facility] Prothrombin Time w/INRon INR Coag (PPP) [Relative time] 2.3 {INR} Normal [facility] Comment on above: Order Comment: 411.2 Performed By: #### L 300.3900 ####[facility] [address] [place], [address] PT Coag (PPP) [Time] 26.0 s High 11.7-14.[address] [facility] Comment on above: Order Comment: 411.2 Performed By: #### L 300.3900 ####[facility] [address] [place], [address]([phone] Prothrombin timeOrdered By: Karon Corrales on 10-02-2024 PT Coag (PPP) [Time] 26.0 s High 11.7-14.[address] [facility] International normalized rat io (INR) calculationOrdered By: Karon Corrales on 09-30-2024 INR Coag (Bld) [Relative time] 3.1 {INR} [facility] Prothrombin Time w/INRon INR Coag (PPP) [Relative time] 3.1 {INR} Normal [facility] Comment on above: Order Comment: 411.2 Performed By: #### L 300.3900 ####[facility] [address] [place], [address] PT Coag (PPP) [Time] 32.6 s High 11.7-14.[address] [facility] Comment on above: Order Comment: 411.2 Performed By: #### L 300.3900 ####[facility] [address] [place], [place], [phone] Prothrombin timeOrdered By: Karon Corrales on 09-30-2024 PT Coag (PPP) [Time] 32.6 s High 11.7-14.[address] [facility] International normalized rat io (INR) calculationOrdered By: Karon Corrales on 09-25-2024 INR Coag (Bld) [Relative time] 2.4 {INR} [facility] Prothrombin Time w/INRon INR Coag (PPP) [Relative time] 2.4 {INR} Normal [facility] Comment on above: Order Comment: 411.2 Performed By: #### L 300.3900 ####[facility] [address] [place], [address] Prothrombin timeOrdered By: Karon Corrales on 09-25-2024 PT Coag (PPP) [Time] 26.7 s High 11.7-14.[address] [facility] Comment on above: Order Comment: 411.2 Performed By: #### L 300.3900 ####[facility] [address] [place], [address] International normalized rat io (INR) calculationOrdered By: Karon Corrales on 09-22-2024 INR Coag (Bld) [Relative time] 2.5 {INR} [facility] Prothrombin Time w/INRon INR Coag (PPP) [Relative time] 2.5 {INR} Normal [facility] Comment on above: Order Comment: 411.2 Performed By: #### L 300.3900 ####[facility] [address] [place], [place], [phone] Prothrombin timeOrdered By: Karon Corrales on 09-22-2024 PT Coag (PPP) [Time] 27.4 s High 11.7-14.[address] [facility] Comment on above: Order Comment: 411.2 Performed By: #### L 300.3900 ####[facility] [address] [place], [place], [phone] International normalized rat io (INR) calculationOrdered By: Karon Corrales on 09-18-2024 INR Coag (Bld) [Relative time] 2.2 {INR} [facility] Prothrombin Time w/INRon INR Coag (PPP) [Relative time] 2.2 {INR} Normal [facility] Comment on above: Order Comment: 411.2 Performed By: #### L 300.3900 ####[facility] [address] [place], [place], [phone] PT Coag (PPP) [Time] 25.1 s High 11.7-14.[address] [facility] Comment on above: Order Comment: 411.2 Performed By: #### L 300.3900 ####[facility] [address] [place], [place], [address] Prothrombin timeOrdered By: Karon Corrales on 09-18-2024 PT Coag (PPP) [Time] 25.1 s High 11.7-14.[address] [facility] International normalized rat io (INR) calculationOrdered By: Carlos Cavazos on 09-15-2024 INR Coag (Bld) [Relative time] 2.4 {INR} [facility] Prothrombin Time w/INRon INR Coag (PPP) [Relative time] 2.4 {INR} Normal [facility] Comment on above: Order Comment: 411-2 Performed By: #### L 300.3900 ####[facility] [address] [place], [place], [phone] Prothrombin timeOrdered By: Carlos Cavazos on 09-15-2024 PT Coag (PPP) [Time] 26.3 s High 11.7-14.[address] [facility] Comment on above: Order Comment: 411-2 Performed By: #### L 300.3900 ####[facility] [address] [place], [place], [phone] International normalized rat io (INR) calculationOrdered By: Karon Corrales on 09-11-2024 INR Coag (Bld) [Relative time] 2.0 {INR} [facility] Prothrombin Time w/INRon INR Coag (PPP) [Relative time] 2.0 {INR} Normal [facility] Comment on above: Order Comment: 411.2 Performed By: #### L 300.3900 ####[facility] [address] [place], [place], [phone] PT Coag (PPP) [Time] 22.9 s High 11.7-14.[address] [facility] Comment on above: Order Comment: 411.2 Performed By: #### L 300.3900 ####[facility] [address] [place], [place], [phone] Prothrombin timeOrdered By: Karon Corrales on 09-11-2024 PT Coag (PPP) [Time] 22.9 s High 11.7-14.[address] [facility] International normalized rat io (INR) calculationOrdered By: Karon Corrales on 09-08-2024 INR Coag (Bld) [Relative time] 2.0 {INR} [facility] Prothrombin Time w/INRon INR Coag (PPP) [Relative time] 2.0 {INR} Normal [facility] Comment on above: Order Comment: 411.2 Performed By: #### L 300.3900 ####[facility] [address] [place], [place], [phone] PT Coag (PPP) [Time] 22.8 s High 11.7-14.[address] [facility] Comment on above: Order Comment: 411.2 Performed By: #### L 300.3900 ####[facility] [address] [place], [place], [phone] Prothrombin timeOrdered By: Karon Corrales on 09-08-2024 PT Coag (PPP) [Time] 22.8 s High 11.7-14.[address] [facility] International normalized rat io (INR) calculationOrdered By: Carlos Cavazos on 09-04-2024 INR Coag (Bld) [Relative time] 1.7 {INR} [facility] Prothrombin Time w/INRon INR Coag (PPP) [Relative time] 1.7 {INR} Normal [facility] Comment on above: Order Comment: 411-2 Performed By: #### L 300.3900 ####[facility] [address] [place], [place], [phone] PT Coag (PPP) [Time] 20.8 s High 11.7-14.[address] [facility] Comment on above: Order Comment: 411-2 Performed By: #### L 300.3900 ####[facility] [address] [place], [place], [phone] Prothrombin timeOrdered By: Carlos Cavazos on 09-04-2024 PT Coag (PPP) [Time] 20.8 s High 11.7-14.[address] [facility] International normalized rat io (INR) calculationOrdered By: Carlos Cavazos on 09-01-2024 INR Coag (Bld) [Relative time] 2.9 {INR} [facility] Prothrombin Time w/INRon INR Coag (PPP) [Relative time] 2.9 {INR} Normal [facility] Comment on above: Order Comment: 411-2 Performed By: #### L 300.3900 ####[facility] [address] [place], [address] PT Coag (PPP) [Time] 30.7 s High 11.7-14.[address] [facility] Comment on above: Order Comment: 411-2 Performed By: #### L 300.3900 ####[facility] [address] [place], [address] Prothrombin timeOrdered By: Carlos Cavazos on 09-01-2024 PT Coag (PPP) [Time] 30.7 s High 11.7-14.[address] [facility] International normalized rat io (INR) calculationOrdered By: Carlos Cavazos on 08-28-2024 INR Coag (Bld) [Relative time] 2.4 {INR} [facility] Prothrombin Time w/INRon INR Coag (PPP) [Relative time] 2.4 {INR} Normal [facility] Comment on above: Order Comment: 411-2 Performed By: #### L 300.3900 ####[facility] [address] [place], [address] Prothrombin timeOrdered By: Carlos Cavazos on 08-28-2024 PT Coag (PPP) [Time] 26.7 s High 11.7-14.[address] [facility] Comment on above: Order Comment: 411-2 Performed By: #### L 300.3900 ####[facility] [address] [place], [address] International normalized rat io (INR) calculationOrdered By: Karon Corrales on 08-25-2024 INR Coag (Bld) [Relative time] 1.8 {INR} [facility] Prothrombin Time w/INRon INR Coag (PPP) [Relative time] 1.8 {INR} Normal [facility] Comment on above: Order Comment: 411.2 Performed By: #### L 300.3900 ####[facility] [address] [place], [place], [phone] PT Coag (PPP) [Time] 21.6 s High 11.7-14.[address] [facility] Comment on above: Order Comment: 411.2 Performed By: #### L 300.3900 ####[facility] [address] [place], [place], [phone] Prothrombin timeOrdered By: Karon Corrales on 08-25-2024 PT Coag (PPP) [Time] 21.6 s High 11.7-14.[address] [facility] International normalized rat io (INR) calculationOrdered By: Karon Corrales on 08-21-2024 INR Coag (Bld) [Relative time] 1.7 {INR} [facility] PSA, total screeningOrdered By: Karon Corrales on 08-21-2024 Prostate Specific Antigen Screen 0.52 ng/mL 0.02-4.00 [facility] Comment on above: This test was perfor med using the [employer] tPSA method. Measured values of a patient sample can vary depending on the testing procedure used. PSA values determined on patient samples by different testing procedures cannot be used interchangeably. If there is a change in PSA assays while monitoring therapy, sequential testing should be performed to confirm baseline values. PSA,Total - Annual Screenon 08-21-2024 PSA,TOT SCREEN 0.52 ng/mL Normal 0.02-4.00 [facility] Comment on above: Order Comment: 411.2 Result [...] values. Performed By: #### L 501.9910, L300.3900 ####[facility] [address] [place], [place], [address] Prothrombin Time w/INRon INR Coag (PPP) [Relative time] 1.7 {INR} Normal [facility] Comment on above: Order Comment: 411.2 Performed By: #### L 501.9910, L300.3900 ####[facility] [address] [place], [place], [phone]([phone] Prothrombin timeOrdered By: Karon Corrales on 08-21-2024 PT Coag (PPP) [Time] 20.1 s High 11.7-14.[address] [facility] Comment on above: Order Comment: 411.2 Performed By: #### L 501.9910, L300.3900 ####[facility] [address] [place], [address] International normalized rat io (INR) calculationOrdered By: Karon Corrales on 08-18-2024 INR Coag (Bld) [Relative time] 3.0 {INR} [facility] Prothrombin Time w/INRon INR Coag (PPP) [Relative time] 3.0 {INR} Normal [facility] Comment on above: Order Comment: 411.2 Performed By: #### L 300.3900 ####[facility] [address] [place], [address] PT Coag (PPP) [Time] 31.4 s High 11.7-14.[address] [facility] Comment on above: Order Comment: 411.2 Performed By: #### L 300.3900 ####[facility] [address] [place], [address] Prothrombin timeOrdered By: Karon Corrales on 08-18-2024 PT Coag (PPP) [Time] 31.4 s High 11.7-14.[address] [facility] International normalized rat io (INR) calculationOrdered By: Karon Corrales on 08-14-2024 INR Coag (Bld) [Relative time] 2.4 {INR} [facility] Prothrombin Time w/INRon INR Coag (PPP) [Relative time] 2.4 {INR} Normal [facility] Comment on above: Order Comment: 411.2 Performed By: #### L 300.3900 ####[facility] [address] [place], [place], [phone]([phone] PT Coag (PPP) [Time] 26.6 s High 11.7-14.[address] [facility] Comment on above: Order Comment: 411.2 Performed By: #### L 300.3900 ####[facility] [address] [place], [place], [phone] Prothrombin timeOrdered By: Karon Corrales on 08-14-2024 PT Coag (PPP) [Time] 26.6 s High 11.7-14.[address] [facility] International normalized rat io (INR) calculationOrdered By: Karon Corrales on 08-11-2024 INR Coag (Bld) [Relative time] 3.1 {INR} [facility] Prothrombin Time w/INRon INR Coag (PPP) [Relative time] 3.1 {INR} Normal [facility] Comment on above: Order Comment: 411.2 Performed By: #### L 300.3900 ####[facility] [address] [place], [place], [phone] PT Coag (PPP) [Time] 32.4 s High 11.7-14.[address] [facility] Comment on above: Order Comment: 411.2 Performed By: #### L 300.3900 ####[facility] [address] [place], [place], [phone]([phone] Prothrombin timeOrdered By: Karon Corrales on 08-11-2024 PT Coag (PPP) [Time] 32.4 s High 11.7-14.[address] [facility] International normalized rat io (INR) calculationOrdered By: Carlos Cavazos on 08-07-2024 INR Coag (Bld) [Relative time] 2.8 {INR} [facility] Prothrombin Time w/INRon INR Coag (PPP) [Relative time] 2.8 {INR} Normal [facility] Comment on above: Order Comment: 411-2 Performed By: #### L 300.3900 ####[facility] [address] [place], [address] PT Coag (PPP) [Time] 30.3 s High 11.7-14.[address] [facility] Comment on above: Order Comment: 411-2 Performed By: #### L 300.3900 ####[facility] [address] [place], [address] Prothrombin timeOrdered By: Carlos Cavazos on 08-07-2024 PT Coag (PPP) [Time] 30.3 s High 11.7-14.[address] [facility] International normalized rat io (INR) calculationOrdered By: Carlos Cavazos on 08-04-2024 INR Coag (Bld) [Relative time] 1.9 {INR} [facility] Prothrombin Time w/INRon INR Coag (PPP) [Relative time] 1.9 {INR} Normal [facility] Comment on above: Order Comment: 411-2 Performed By: #### L 300.3900 ####[facility] [address] [place], [address] PT Coag (PPP) [Time] 22.1 s High 11.7-14.[address] [facility] Comment on above: Order Comment: 411-2 Performed By: #### L 300.3900 ####[facility] [address] [place], [address] Prothrombin timeOrdered By: Carlos Cavazos on 08-04-2024 PT Coag (PPP) [Time] 22.1 s High 11.7-14.[address] [facility] International normalized rat io (INR) calculationOrdered By: Karon Corrales on 03-27-2025 INR Coag (Bld) [Relative time] 3.2 {INR} [facility] Prothrombin Time w/INRon INR Coag (PPP) [Relative time] 3.2 {INR} Normal [facility] Comment on above: Order Comment: 411.2 Performed By: #### L 300.3900 ####[facility] [address] [place], [place], [phone] PT Coag (PPP) [Time] 33.5 s High 11.7-14.[address] [facility] Comment on above: Order Comment: 411.2 Performed By: #### L 300.3900 ####[facility] [address] [place], [place], [phone] Prothrombin timeOrdered By: Karon Corrales on 07-31-2024 PT Coag (PPP) [Time] 33.5 s High 11.7-14.[address] [facility] International normalized rat io (INR) calculationOrdered By: Karon Corrales on 07-28-2024 INR Coag (Bld) [Relative time] 2.7 {INR} [facility] Prothrombin Time w/INRon INR Coag (PPP) [Relative time] 2.7 {INR} Normal [facility] Comment on above: Order Comment: 411.2 Performed By: #### L 300.3900 ####[facility] [address] [place], [address] PT Coag (PPP) [Time] 29.6 s High 11.7-14.[address] [facility] Comment on above: Order Comment: 411.2 Performed By: #### L 300.3900 ####[facility] [address] [place], [place], [phone] Prothrombin timeOrdered By: Karon Corrales on 07-28-2024 PT Coag (PPP) [Time] 29.6 s High 11.7-14.[address] [facility] International normalized rat io (INR) calculationOrdered By: Carlos Cavazos on 07-25-2024 INR Coag (Bld) [Relative time] 3.0 {INR} [facility] Prothrombin Time w/INRon INR Coag (PPP) [Relative time] 3.0 {INR} Normal [facility] Comment on above: Order Comment: 411-2 Performed By: #### L 300.3900 ####[facility] [address] [place], [place], [phone] Prothrombin timeOrdered By: Carlos Cavazos on 07-25-2024 PT Coag (PPP) [Time] 32.1 s High 11.7-14.[address] [facility] Comment on above: Order Comment: 411-2 Performed By: #### L 300.3900 ####[facility] [address] [place], [place], [phone] International normalized rat io (INR) calculationOrdered By: Karon Corrales on 07-24-2024 INR Coag (Bld) [Relative time] 3.4 {INR} [facility] Prothrombin Time w/INRon INR Coag (PPP) [Relative time] 3.4 {INR} Normal [facility] Comment on above: Order Comment: 411.2 Performed By: #### L 300.3900 ####[facility] [address] [place], [place], [phone] Prothrombin timeOrdered By: Karon Corrales on 07-24-2024 PT Coag (PPP) [Time] 35.4 s High 11.7-14.[address] [facility] Comment on above: Order Comment: 411.2 Performed By: #### L 300.3900 ####[facility] [address] [place], [place], [phone] International normalized rat io (INR) calculationOrdered By: Karon Corrales on 07-21-2024 INR Coag (Bld) [Relative time] 1.6 {INR} [facility] Prothrombin Time w/INRon INR Coag (PPP) [Relative time] 1.6 {INR} Normal [facility] Comment on above: Order Comment: 411.2 Performed By: #### L 300.3900 ####[facility] [address] [place], [place], [phone](738) PT Coag (PPP) [Time] 19.6 s High 11.7-14.[address] [facility] Comment on above: Order Comment: 411.2 Performed By: #### L 300.3900 ####[facility] [address] [place], [place], [phone](093) Prothrombin timeOrdered By: Karon Corrales on 07-21-2024 PT Coag (PPP) [Time] 19.6 s High 11.7-14.[address] [facility] International normalized rat io (INR) calculationOrdered By: Karon Corrales on 07-17-2024 INR Coag (Bld) [Relative time] 2.9 {INR} [facility] Prothrombin Time w/INRon INR Coag (PPP) [Relative time] 2.9 {INR} Normal [facility] Comment on above: Order Comment: 411.2 Performed By: #### L 300.3900 ####[facility] [address] [place], [place], [phone](499) PT Coag (PPP) [Time] 31.1 s High 11.7-14.[address] [facility] Comment on above: Order Comment: 411.2 Performed By: #### L 300.3900 ####[facility] [address] [place], [place], [phone](210) Prothrombin timeOrdered By: Karon Corrales on 07-17-2024 PT Coag (PPP) [Time] 31.1 s High 11.7-14.[address] [facility] International normalized rat io (INR) calculationOrdered By: Carlos Cavazos on 07-14-2024 INR Coag (Bld) [Relative time] 2.5 {INR} [facility] Prothrombin Time w/INRon INR Coag (PPP) [Relative time] 2.5 {INR} Normal [facility] Comment on above: Order Comment: 411-2 Performed By: #### L 300.3900 ####[facility] [address] [place], [address] PT Coag (PPP) [Time] 27.5 s High 11.7-14.[address] [facility] Comment on above: Order Comment: 411-2 Performed By: #### L 300.3900 ####[facility] [address] [place], [address] Prothrombin timeOrdered By: Carlos Cavazos on 07-14-2024 PT Coag (PPP) [Time] 27.5 s High 11.7-14.[address] [facility] International normalized rat io (INR) calculationOrdered By: Carlos Cavazos on 07-11-2024 INR Coag (Bld) [Relative time] 2.5 {INR} [facility] Prothrombin Time w/INRon INR Coag (PPP) [Relative time] 2.5 {INR} Normal [facility] Comment on above: Performed By: #### L 300.3900 ####[facility] [address] [place], [address] PT Coag (PPP) [Time] 27.7 s High 11.7-14.[address] [facility] Comment on above: Performed By: #### L 300.3900 ####[facility] [address] [place], [address] Prothrombin timeOrdered By: Carlos Cavazos on 07-11-2024 PT Coag (PPP) [Time] 27.7 s High 11.7-14.[address] [facility] Prothrombin Time w/INRon INR Normal [facility] Comment on above: Order Comment: 411.2 Result Comment: QNS TUBE NOT FILLED Performed By: #### L 300.3900 ####[facility] [address] [place], [address] PROTIME Normal 11.7-14.9 [facility] Comment on above: Order Comment: 411.2 Result Comment: QNS TUBE NOT FILLED Performed By: #### L 300.3900 ####[facility] [address] [place], [address] International normalized rat io (INR) calculationOrdered By: Kvng Crisostomo on 07-07-2024 INR Coag (Bld) [Relative time] 2.5 {INR} [facility] Prothrombin Time w/INRon INR Coag (PPP) [Relative time] 2.5 {INR} Normal [facility] Comment on above: Order Comment: 411.2 Performed By: #### L 300.3900 ####[facility] [address] [place], [address] PT Coag (PPP) [Time] 27.2 s High 11.7-14.[address] [facility] Comment on above: Order Comment: 411.2 Performed By: #### L 300.3900 ####[facility] [address] [place], [address] Prothrombin timeOrdered By: Kvng Crisostomo on 07-07-2024 PT Coag (PPP) [Time] 27.2 s High 11.7-14.[address] [facility] International normalized rat io (INR) calculationOrdered By: Kvng Crisostomo on 07-03-2024 INR Coag (Bld) [Relative time] 2.5 {INR} [facility] Prothrombin Time w/INRon INR Coag (PPP) [Relative time] 2.5 {INR} Normal [facility] Comment on above: Order Comment: 411.2 Performed By: #### L 300.3900 ####[facility] [address] [place], [address] PT Coag (PPP) [Time] 27.2 s High 11.7-14.[address] [facility] Comment on above: Order Comment: 411.2 Performed By: #### L 300.3900 ####[facility] [address] [place], [address] Prothrombin timeOrdered By: Kvng Crisostomo on 07-03-2024 PT Coag (PPP) [Time] 27.2 s High 11.7-14.[address] [facility] International normalized rat io (INR) calculationOrdered By: Babrocio Cirsostomo on 06-30-2024 INR Coag (Bld) [Relative time] 2.4 {INR} [facility] Prothrombin Time w/INRon INR Coag (PPP) [Relative time] 2.4 {INR} Normal [facility] Comment on above: Order Comment: 411.2 Performed By: #### L 300.3900 ####[facility] [address] [place], [address] PT Coag (PPP) [Time] 26.8 s High 11.7-14.[address] [facility] Comment on above: Order Comment: 411.2 Performed By: #### L 300.3900 ####[facility] [address] [place], [address] Prothrombin timeOrdered By: Kvng Crisostomo on 06-30-2024 PT Coag (PPP) [Time] 26.8 s High 11.7-14.[address] [facility] International normalized rat io (INR) calculationOrdered By: Babrocio Crisostomo on 06-26-2024 INR Coag (Bld) [Relative time] 2.5 {INR} [facility] Prothrombin Time w/INRon INR Coag (PPP) [Relative time] 2.5 {INR} Normal [facility] Comment on above: Order Comment: 411.2 Performed By: #### L 300.3900 ####[facility] [address] [place], [place], [phone] PT Coag (PPP) [Time] 27.5 s High 11.7-14.[address] [facility] Comment on above: Order Comment: 411.2 Performed By: #### L 300.3900 ####[facility] [address] [place], [place], [phone](357) Prothrombin timeOrdered By: Kvng Crisostomo on 06-26-2024 PT Coag (PPP) [Time] 27.5 s High 11.7-14.[address] [facility] International normalized rat io (INR) calculationOrdered By: Carlos Cavazos on 06-23-2024 INR Coag (Bld) [Relative time] 2.8 {INR} [facility] Prothrombin Time w/INRon INR Coag (PPP) [Relative time] 2.8 {INR} Normal [facility] Comment on above: Order Comment: 411-2 Performed By: #### L 300.3900 ####[facility] [address] [place], [place], [phone] PT Coag (PPP) [Time] 29.7 s High 11.7-14.[address] [facility] Comment on above: Order Comment: 411-2 Performed By: #### L 300.3900 ####[facility] [address] [place], [place], [phone] Prothrombin timeOrdered By: Carlos Cavazos on 06-23-2024 PT Coag (PPP) [Time] 29.7 s High 11.7-14.[address] [facility] International normalized rat io (INR) calculationOrdered By: Kvng Crisostomo on 06-19-2024 INR Coag (Bld) [Relative time] 2.6 {INR} [facility] Prothrombin Time w/INRon INR Coag (PPP) [Relative time] 2.6 {INR} Normal [facility] Comment on above: Order Comment: 411.2 Performed By: #### L 300.3900 ####[facility] [address] [place], [address] PT Coag (PPP) [Time] 28.6 s High 11.7-14.[address] [facility] Comment on above: Order Comment: 411.2 Performed By: #### L 300.3900 ####[facility] [address] [place], [address] Prothrombin timeOrdered By: Kvng Crisostomo on 06-19-2024 PT Coag (PPP) [Time] 28.6 s High 11.7-14.[address] [facility] [employer] normalized rat io (INR) calculationOrdered By: Kvng Crisostomo on 06-16-2024 INR Coag (Bld) [Relative time] 2.5 {INR} [facility] Prothrombin Time w/INRon INR Coag (PPP) [Relative time] 2.5 {INR} Normal [facility] Comment on above: Order Comment: 411.2 Performed By: #### L 300.3900 ####[facility] [address] [place], [address] PT Coag (PPP) [Time] 27.3 s High 11.7-14.[address] [facility] Comment on above: Order Comment: 411.2 Performed By: #### L 300.3900 ####[facility] [address] [place], [address] Prothrombin timeOrdered By: Kvng Crisostomo on 06-16-2024 PT Coag (PPP) [Time] 27.3 s High 11.7-14.[address] [facility] International normalized rat io (INR) calculationOrdered By: Kvng Crisostomo on 06-12-2024 INR Coag (Bld) [Relative time] 2.1 {INR} [facility] Prothrombin Time w/INRon INR Coag (PPP) [Relative time] 2.1 {INR} Normal [facility] Comment on above: Order Comment: 411.2 Performed By: #### L 300.3900 ####[facility] [address] [place], [place], [phone] PT Coag (PPP) [Time] 24.0 s High 11.7-14.[address] [facility] Comment on above: Order Comment: 411.2 Performed By: #### L 300.3900 ####[facility] [address] [place], [address] Prothrombin timeOrdered By: Kvng Crisostomo on 06-12-2024 PT Coag (PPP) [Time] 24.0 s High 11.7-14.[address] [facility] International normalized rat io (INR) calculationOrdered By: Carlos Cavazos on 06-09-2024 INR Coag (Bld) [Relative time] 1.5 {INR} [facility] Prothrombin Time w/INRon INR Coag (PPP) [Relative time] 1.5 {INR} Normal [facility] Comment on above: Order Comment: 411-2 Performed By: #### L 300.3900 ####[facility] [address] [place], [address] PT Coag (PPP) [Time] 18.0 s High 11.7-14.[address] [facility] Comment on above: Order Comment: 411-2 Performed By: #### L 300.3900 ####[facility] [address] [place], [address] Prothrombin timeOrdered By: Carlos Cavazos on 06-09-2024 PT Coag (PPP) [Time] 18.0 s High 11.7-14.[address] [facility] International normalized rat io (INR) calculationOrdered By: Kvng Crisostomo on 06-05-2024 INR Coag (Bld) [Relative time] 2.8 {INR} [facility] Prothrombin Time w/INRon INR Coag (PPP) [Relative time] 2.8 {INR} Normal [facility] Comment on above: Order Comment: 411.2 Performed By: #### L 300.3900 ####[facility] [address] [place], [address] PT Coag (PPP) [Time] 30.3 s High 11.7-14.[address] [facility] Comment on above: Order Comment: 411.2 Performed By: #### L 300.3900 ####[facility] [address] [place], [address] Prothrombin timeOrdered By: Kvng Crisostomo on 06-05-2024 PT Coag (PPP) [Time] 30.3 s High 11.7-14.[address] [facility] International normalized rat io (INR) calculationOrdered By: Kvng Crisostomo on 06-02-2024 INR Coag (Bld) [Relative time] 2.6 {INR} [facility] Prothrombin Time w/INRon INR Coag (PPP) [Relative time] 2.6 {INR} Normal [facility] Comment on above: Order Comment: 411.2 Performed By: #### L 300.3900 ####[facility] [address] [place], [address] PT Coag (PPP) [Time] 28.6 s High 11.7-14.[address] [facility] Comment on above: Order Comment: 411.2 Performed By: #### L 300.3900 ####[facility] [address] [place], [address] Prothrombin timeOrdered By: Kvng Crisostomo on 06-02-2024 PT Coag (PPP) [Time] 28.6 s High 11.7-14.[address] [facility] [employer] normalized rat io (INR) calculationOrdered By: Kvng Crisostomo on 05-29-2024 INR Coag (Bld) [Relative time] 2.5 {INR} [facility] Prothrombin Time w/INRon INR Coag (PPP) [Relative time] 2.5 {INR} Normal [facility] Comment on above: Order Comment: 411.2 Performed By: #### L 300.3900 ####[facility] [address] [place], [address] PT Coag (PPP) [Time] 27.7 s High 11.7-14.[address] [facility] Comment on above: Order Comment: 411.2 Performed By: #### L 300.3900 ####[facility] [address] [place], [address] Prothrombin timeOrdered By: Kvng Crisostomo on 05-29-2024 PT Coag (PPP) [Time] 27.7 s High 11.7-14.[address] [facility] International normalized rat io (INR) calculationOrdered By: Carlos Cavazos on 05-26-2024 INR Coag (Bld) [Relative time] 2.2 {INR} [facility] Prothrombin Time w/INRon INR Coag (PPP) [Relative time] 2.2 {INR} Normal [facility] Comment on above: Order Comment: 411-2 Performed By: #### L 300.3900 ####[facility] [address] [place], [address] PT Coag (PPP) [Time] 24.5 s High 11.7-14.[address] [facility] Comment on above: Order Comment: 411-2 Performed By: #### L 300.3900 ####[facility] [address] [place], [address] Prothrombin timeOrdered By: Carlos Cavazos on 05-26-2024 PT Coag (PPP) [Time] 24.5 s High 11.7-14.[address] [facility] International normalized rat io (INR) calculationOrdered By: Kvng Crisostomo on 05-22-2024 INR Coag (Bld) [Relative time] 2.8 {INR} [facility] Prothrombin Time w/INRon INR Coag (PPP) [Relative time] 2.8 {INR} Normal [facility] Comment on above: Order Comment: 411.2 Performed By: #### L 300.3900 ####[facility] [address] [place], [address] PT Coag (PPP) [Time] 30.3 s High 11.7-14.[address] [facility] Comment on above: Order Comment: 411.2 Performed By: #### L 300.3900 ####[facility] [address] [place], [address] Prothrombin timeOrdered By: Kvng Crisostomo on 05-22-2024 PT Coag (PPP) [Time] 30.3 s High 11.7-14.[address] [facility] International normalized rat io (INR) calculationOrdered By: Kvng Crisostomo on 05-20-2024 INR Coag (Bld) [Relative time] 4.0 {INR} High [facility] Comment on above: CRITICAL VALUE CASEY D TO [id number]/14/25 0828 Diana Mattson.RESULTS READ BACK BY SAME. Prothrombin Time w/INRon INR Coag (PPP) [Relative time] 4.0 {INR} Invalid Interpretation Code [facility] Comment on above: Order Comment: 411.2 Result Comment: CRIT ICAL VALUE CALLED TO [id number]/14/25 [facility] Diana Mattson.RESULTS READ BACK BY SAME. Performed By: #### L 300.3900 ####[facility] [address] [place], [address] PT Coag (PPP) [Time] 39.9 s High 11.7-14.[address] [facility] Comment on above: Order Comment: 411.2 Performed By: #### L 300.3900 ####[facility] [address] [place], [address] Prothrombin timeOrdered By: Kvng Crisostomo on 05-20-2024 PT Coag (PPP) [Time] 39.9 s High 11.7-14.[address] [facility] International normalized rat io (INR) calculationOrdered By: Kvng Crisostomo on 05-19-2024 INR Coag (Bld) [Relative time] 3.4 {INR} [facility] Prothrombin Time w/INRon INR Coag (PPP) [Relative time] 3.4 {INR} Normal [facility] Comment on above: Order Comment: 411.2 Performed By: #### L 300.3900 ####[facility] [address] [place], [place], [phone] PT Coag (PPP) [Time] 35.4 s High 11.7-14.[address] [facility] Comment on above: Order Comment: 411.2 Performed By: #### L 300.3900 ####[facility] [address] [place], [place], [phone]([phone] Prothrombin timeOrdered By: Kvng Crisostomo on 05-19-2024 PT Coag (PPP) [Time] 35.4 s High 11.7-14.[address] [facility] International normalized rat io (INR) calculationOrdered By: Kvng Crisostomo on 05-15-2024 INR Coag (Bld) [Relative time] 2.6 {INR} [facility] Prothrombin Time w/INRon INR Coag (PPP) [Relative time] 2.6 {INR} Normal [facility] Comment on above: Order Comment: 411.2 Performed By: #### L 300.3900 ####[facility] [address] [place], [address] PT Coag (PPP) [Time] 28.7 s High 11.7-14.[address] [facility] Comment on above: Order Comment: 411.2 Performed By: #### L 300.3900 ####[facility] [address] [place], [place], [phone] Prothrombin timeOrdered By: Kvng Crisostomo on 05-15-2024 PT Coag (PPP) [Time] 28.7 s High 11.7-14.[address] [facility] International normalized rat io (INR) calculationOrdered By: Carlos Cavazos on 05-12-2024 INR Coag (Bld) [Relative time] 2.1 {INR} [facility] Prothrombin Time w/INRon INR Coag (PPP) [Relative time] 2.1 {INR} Normal [facility] Comment on above: Order Comment: 411-2 Performed By: #### L 300.3900 ####[facility] [address] [place], [place], [phone] PT Coag (PPP) [Time] 24.1 s High 11.7-14.[address] [facility] Comment on above: Order Comment: 411-2 Performed By: #### L 300.3900 ####[facility] [address] [place], [place], [phone]([phone] Prothrombin timeOrdered By: Carlos Cavazos on 05-12-2024 PT Coag (PPP) [Time] 24.1 s High 11.7-14.[address] [facility] International normalized rat io (INR) calculationOrdered By: Kvng Crisostomo on 05-09-2024 INR Coag (Bld) [Relative time] 3.4 {INR} [facility] Prothrombin Time w/INRon INR Coag (PPP) [Relative time] 3.4 {INR} Normal [facility] Comment on above: Order Comment: 411.2 Performed By: #### L 300.3900 ####[facility] [address] [place], [place], [phone] PT Coag (PPP) [Time] 35.4 s High 11.7-14.[address] [facility] Comment on above: Order Comment: 411.2 Performed By: #### L 300.3900 ####[facility] [address] [place], [place], [phone] Prothrombin timeOrdered By: Kvng Crisostomo on 05-09-2024 PT Coag (PPP) [Time] 35.4 s High 11.7-14.[address] [facility] International normalized rat io (INR) calculationOrdered By: Kvng Crisostomo on 05-08-2024 INR Coag (Bld) [Relative time] 4.1 {INR} High [facility] Comment on above: CRITICAL VALUE CASEY D TO [facility]05/08/24 0950 Karen Haven.RESULTS READ BACK BY SAME. Prothrombin Time w/INRon INR Coag (PPP) [Relative time] 4.1 {INR} Invalid Interpretation Code [facility] Comment on above: Order Comment: 411.2 Result Comment: CRIT ICAL VALUE CALLED TO [facility]05/08/24 0950 Karen Haven.RESULTS READ BACK BY SAME. Performed By: #### L 300.3900 ####[facility] [address] [place], [place], [phone] PT Coag (PPP) [Time] 40.8 s High 11.7-14.[address] [facility] Comment on above: Order Comment: 411.2 Performed By: #### L 300.3900 ####[facility] [address] [place], [address] Prothrombin timeOrdered By: Kvng Crisostomo on 05-08-2024 PT Coag (PPP) [Time] 40.8 s High 11.7-14.[address] [facility] International normalized rat io (INR) calculationOrdered By: Kvng Crisostomo on 05-05-2024 INR Coag (Bld) [Relative time] 3.2 {INR} [facility] Prothrombin Time w/INRon INR Coag (PPP) [Relative time] 3.2 {INR} Normal [facility] Comment on above: Order Comment: 411.2 Performed By: #### L 300.3900 ####[facility] [address] [place], [address] PT Coag (PPP) [Time] 32.5 s High 11.7-14.[address] [facility] Comment on above: Order Comment: 411.2 Performed By: #### L 300.3900 ####[facility] [address] [place], [address] Prothrombin timeOrdered By: Kvng Crisostomo on 05-05-2024 PT Coag (PPP) [Time] 32.5 s High 11.7-14.[address] [facility] International normalized rat io (INR) calculationOrdered By: Kvng Crisostomo on 05-01-2024 INR Coag (Bld) [Relative time] 3.1 {INR} [facility] Prothrombin Time w/INRon INR Coag (PPP) [Relative time] 3.1 {INR} Normal [facility] Comment on above: Order Comment: 411.2 Performed By: #### L 300.3900 ####[facility] [address] [place], [address] PT Coag (PPP) [Time] 31.9 s High 11.7-14.[address] [facility] Comment on above: Order Comment: 411.2 Performed By: #### L 300.3900 ####[facility] [address] [place], [address] Prothrombin timeOrdered By: Kvng Crisostomo on 05-01-2024 PT Coag (PPP) [Time] 31.9 s High 11.7-14.[address] [facility] International normalized rat io (INR) calculationOrdered By: Carlos Cavazos on 04-28-2024 INR Coag (Bld) [Relative time] 2.6 {INR} [facility] Prothrombin Time w/INRon INR Coag (PPP) [Relative time] 2.6 {INR} Normal [facility] Comment on above: Order Comment: 411-2 Performed By: #### L 300.3900 ####[facility] [address] [place], [address] PT Coag (PPP) [Time] 27.3 s High 11.7-14.[address] [facility] Comment on above: Order Comment: 411-2 Performed By: #### L 300.3900 ####[facility] [address] [place], [address] Prothrombin timeOrdered By: Carlos Cavazos on 04-28-2024 PT Coag (PPP) [Time] 27.3 s High 11.7-14.[address] [facility] International normalized rat io (INR) calculationOrdered By: Kvng Crisostomo on 04-24-2024 INR Coag (Bld) [Relative time] 3.6 {INR} [facility] Prothrombin Time w/INRon INR Coag (PPP) [Relative time] 3.6 {INR} Normal [facility] Comment on above: Order Comment: 411.2 Performed By: #### L 300.3900 ####[facility] [address] [place], [address] PT Coag (PPP) [Time] 35.6 s High 11.7-14.[address] [facility] Comment on above: Order Comment: 411.2 Performed By: #### L 300.3900 ####[facility] [address] [place], [address] Prothrombin timeOrdered By: Kvng Crisostomo on 04-24-2024 PT Coag (PPP) [Time] 35.6 s High 11.7-14.[address] [facility] International normalized rat io (INR) calculationOrdered By: Carlos Cavazos on 04-21-2024 INR Coag (Bld) [Relative time] 2.8 {INR} [facility] Prothrombin Time w/INRon INR Coag (PPP) [Relative time] 2.8 {INR} Normal [facility] Comment on above: Order Comment: 411-2 Performed By: #### L 300.3900 ####[facility] [address] [place], [address] PT Coag (PPP) [Time] 29.4 s High 11.7-14.[address] [facility] Comment on above: Order Comment: 411-2 Performed By: #### L 300.3900 ####[facility] [address] [place], [address](679) Prothrombin timeOrdered By: Carlos Cavazos on 04-21-2024 PT Coag (PPP) [Time] 29.4 s High 11.7-14.[address] [facility] International normalized rat io (INR) calculationOrdered By: Kvng Crisostomo on 04-17-2024 INR Coag (Bld) [Relative time] 3.1 {INR} [facility] Prothrombin Time w/INRon INR Coag (PPP) [Relative time] 3.1 {INR} Normal [facility] Comment on above: Order Comment: 411.2 Performed By: #### L 300.3900 ####[facility] [address] [place], [place], [phone]) Prothrombin timeOrdered By: Kvng Crisostomo on 04-17-2024 PT Coag (PPP) [Time] 31.3 s High 11.7-14.[address] [facility] Comment on above: Order Comment: 411.2 Performed By: #### L 300.3900 ####[facility] [address] [place], [place], [phone] International normalized rat io (INR) calculationOrdered By: Kvng Crisostomo on 04-14-2024 INR Coag (Bld) [Relative time] 3.3 {INR} [facility] Prothrombin Time w/INRon INR Coag (PPP) [Relative time] 3.3 {INR} Normal [facility] Comment on above: Order Comment: 411.2 Performed By: #### L 300.3900 ####[facility] [address] [place], [address](153 PT Coag (PPP) [Time] 33.2 s High 11.7-14.[address] [facility] Comment on above: Order Comment: 411.2 Performed By: #### L 300.3900 ####[facility] [address] [place], [address] Prothrombin timeOrdered By: Kvng Crisostomo on 04-14-2024 PT Coag (PPP) [Time] 33.2 s High 11.7-14.[address] [facility] International normalized rat io (INR) calculationOrdered By: Kvng Crisostomo on 04-10-2024 INR Coag (Bld) [Relative time] 2.8 {INR} [facility] Prothrombin Time w/INRon INR Coag (PPP) [Relative time] 2.8 {INR} Normal [facility] Comment on above: Order Comment: 411.2 Performed By: #### L 300.3900 ####[facility] [address] [place], [address] PT Coag (PPP) [Time] 29.2 s High 11.7-14.[address] [facility] Comment on above: Order Comment: 411.2 Performed By: #### L 300.3900 ####[facility] [address] [place], [address] Prothrombin timeOrdered By: Kvng Crisostomo on 04-10-2024 PT Coag (PPP) [Time] 29.2 s High 11.7-14.[address] [facility] International normalized rat io (INR) calculationOrdered By: Carlos Cavazos on 04-07-2024 INR Coag (Bld) [Relative time] 2.7 {INR} [facility] Prothrombin Time w/INRon INR Coag (PPP) [Relative time] 2.7 {INR} Normal [facility] Comment on above: Order Comment: 411-2 Performed By: #### L 300.3900 ####[facility] [address] [place], [address] PT Coag (PPP) [Time] 28.1 s High 11.7-14.[address] [facility] Comment on above: Order Comment: 411-2 Performed By: #### L 300.3900 ####[facility] [address] [place], [address] Prothrombin timeOrdered By: Carlos Cavazos on 04-07-2024 PT Coag (PPP) [Time] 28.1 s High 11.7-14.[address] [facility] International normalized rat io (INR) calculationOrdered By: Kvng Crisostomo on 04-04-2024 INR Coag (Bld) [Relative time] 2.8 {INR} [facility] Prothrombin Time w/INRon INR Coag (PPP) [Relative time] 2.8 {INR} Normal [facility] Comment on above: Order Comment: 411.2 Performed By: #### L 300.3900 ####[facility] [address] [place], [address] PT Coag (PPP) [Time] 28.9 s High 11.7-14.[address] [facility] Comment on above: Order Comment: 411.2 Performed By: #### L 300.3900 ####[facility] [address] [place], [address] Prothrombin timeOrdered By: Kvng Crisostomo on 04-04-2024 PT Coag (PPP) [Time] 28.9 s High 11.7-14.[address] [facility] International normalized rat io (INR) calculationOrdered By: Carlos Cavazos on 03-31-2024 INR Coag (Bld) [Relative time] 2.6 {INR} [facility] Prothrombin Time w/INRon INR Coag (PPP) [Relative time] 2.6 {INR} Normal [facility] Comment on above: Order Comment: 411-2 Performed By: #### L 300.3900 ####[facility] [address] [place], [address] PT Coag (PPP) [Time] 27.3 s High 11.7-14.[address] [facility] Comment on above: Order Comment: 411-2 Performed By: #### L 300.3900 ####[facility] [address] [place], [address] Prothrombin timeOrdered By: Carlos Cavazos on 03-31-2024 PT Coag (PPP) [Time] 27.3 s High 11.7-14.[address] [facility] International normalized rat io (INR) calculationOrdered By: [employer] on 03-27-2024 INR Coag (Bld) [Relative time] 2.2 {INR} [facility] Prothrombin Time w/INRon INR Coag (PPP) [Relative time] 2.2 {INR} Normal [facility] Comment on above: Order Comment: 411.2 Performed By: #### L 300.3900 ####[facility] [address] [place], [address] PT Coag (PPP) [Time] 24.3 s High 11.7-14.[address] [facility] Comment on above: Order Comment: 411.2 Performed By: #### L 300.3900 ####[facility] [address] [place], [address] Prothrombin timeOrdered By: [employer] on 03-27-2024 PT Coag (PPP) [Time] 24.3 s High 11.7-14.[address] [facility] International normalized rat io (INR) calculationOrdered By: Kvng Crisostomo on 03-24-2024 INR Coag (Bld) [Relative time] 1.8 {INR} [facility] Prothrombin Time w/INRon INR Coag (PPP) [Relative time] 1.8 {INR} Normal [facility] Comment on above: Order Comment: 411.2 Performed By: #### L 300.3900 ####[facility] [address] [place], [address] PT Coag (PPP) [Time] 20.7 s High 11.7-14.[address] [facility] Comment on above: Order Comment: 411.2 Performed By: #### L 300.3900 ####[facility] [address] [place], [place], [phone] Prothrombin timeOrdered By: Kvng Crisostomo on 03-24-2024 PT Coag (PPP) [Time] 20.7 s High 11.7-14.[address] [facility] International normalized rat io (INR) calculationOrdered By: [employer] on 03-20-2024 INR Coag (Bld) [Relative time] 1.8 {INR} [facility] Prothrombin Time w/INRon INR Coag (PPP) [Relative time] 1.8 {INR} Normal [facility] Comment on above: Order Comment: 411.2 Performed By: #### L 300.3900 ####[facility] [address] [place], [address] PT Coag (PPP) [Time] 20.9 s High 11.7-14.[address] [facility] Comment on above: Order Comment: 411.2 Performed By: #### L 300.3900 ####[facility] [address] [place], [place], [phone]([phone]) Prothrombin timeOrdered By: [employer] on 03-20-2024 PT Coag (PPP) [Time] 20.9 s High 11.7-14.[address] [facility] International normalized rat io (INR) calculationOrdered By: Kvng Crisostomo on 03-19-2024 INR Coag (Bld) [Relative time] 2.4 {INR} [facility] Prothrombin Time w/INRon INR Coag (PPP) [Relative time] 2.4 {INR} Normal [facility] Comment on above: Order Comment: 411.2 Performed By: #### L 300.3900 ####[facility] [address] [place], [address] PT Coag (PPP) [Time] 26.4 s High 11.7-14.[address] [facility] Comment on above: Order Comment: 411.2 Performed By: #### L 300.3900 ####[facility] [address] [place], [place], [phone] Prothrombin timeOrdered By: Kvng Crisostomo on 03-19-2024 PT Coag (PPP) [Time] 26.4 s High 11.7-14.[address] [facility] International normalized rat io (INR) calculationOrdered By: [employer] on 03-18-2024 INR Coag (Bld) [Relative time] 3.2 {INR} [facility] Prothrombin Time w/INRon INR Coag (PPP) [Relative time] 3.2 {INR} Normal [facility] Comment on above: Order Comment: 411.2 Performed By: #### L 300.3900 ####[facility] [address] [place], [place], [phone] PT Coag (PPP) [Time] 32.3 s High 11.7-14.[address] [facility] Comment on above: Order Comment: 411.2 Performed By: #### L 300.3900 ####[facility] [address] [place], [place], [phone] Prothrombin timeOrdered By: [employer] on 03-18-2024 PT Coag (PPP) [Time] 32.3 s High 11.7-14.[address] [facility] [employer] normalized rat io (INR) calculationOrdered By: [employer] on 03-17-2024 INR Coag (Bld) [Relative time] 3.6 {INR} [facility] Prothrombin Time w/INRon INR Coag (PPP) [Relative time] 3.6 {INR} Normal [facility] Comment on above: Order Comment: 411.2 Performed By: #### L 300.3900 ####[facility] [address] [place], [place], [phone] PT Coag (PPP) [Time] 35.7 s High 11.7-14.[address] [facility] Comment on above: Order Comment: 411.2 Performed By: #### L 300.3900 ####[facility] [address] [place], [place], [phone] Prothrombin timeOrdered By: [employer] on 03-17-2024 PT Coag (PPP) [Time] 35.7 s High 11.7-14.[address] [facility] [employer] normalized rat io (INR) calculationOrdered By: Carlos Cavazos on 03-14-2024 INR Coag (Bld) [Relative time] 3.5 {INR} [facility] Prothrombin Time w/INRon INR Coag (PPP) [Relative time] 3.5 {INR} Normal [facility] Comment on above: Order Comment: 411-2 Performed By: #### L 300.3900 ####[facility] [address] [place], [place], [phone] PT Coag (PPP) [Time] 35.0 s High 11.7-14.[address] [facility] Comment on above: Order Comment: 411-2 Performed By: #### L 300.3900 ####[facility] [address] [place], [place], [phone] Prothrombin timeOrdered By: Carlos Cavazos on 03-14-2024 PT Coag (PPP) [Time] 35.0 s High 11.7-14.[address] [facility] normalized rat io (INR) calculationOrdered By: [employer] on 03-13-2024 INR Coag (Bld) [Relative time] 3.2 {INR} [facility] Prothrombin Time w/INRon INR Coag (PPP) [Relative time] 3.2 {INR} Normal [facility] Comment on above: Performed By: #### L 300.3900 ####[facility] [address] [place], [address] PT Coag (PPP) [Time] 32.2 s High 11.7-14.[address] [facility] Comment on above: Performed By: #### L 300.3900 ####[facility] [address] [place], [address] Prothrombin timeOrdered By: [employer] on 03-13-2024 PT Coag (PPP) [Time] 32.2 s High 11.7-14.[address] [facility] Prothrombin Time w/INRon INR Coag (PPP) [Relative time] 2.6 {INR} Normal [facility] Comment on above: Order Comment: 411.2 Performed By: #### L 300.3900 ####[facility] [address] [place], [address] PT Coag (PPP) [Time] 27.7 s High 11.7-14.[address] [facility] Comment on above: Order Comment: 411.2 Performed By: #### L 300.3900 ####[facility] [address] [place], [address] Prothrombin Time w/INRon INR Coag (PPP) [Relative time] 3.1 {INR} Normal [facility] Comment on above: Order Comment: 411.2 Performed By: #### L 300.3900 ####[facility] [address] [place], [address] PT Coag (PPP) [Time] 31.4 s High 11.7-14.[address] [facility] Comment on above: Order Comment: 411.2 Performed By: #### L 300.3900 ####[facility] [address] [place], [address] Prothrombin Time w/INRon INR Coag (PPP) [Relative time] 3.1 {INR} Normal [facility] Comment on above: Order Comment: 411.2 Performed By: #### L 300.3900 ####[facility] [address] [place], [address] PT Coag (PPP) [Time] 31.8 s High 11.7-14.[address] [facility] Comment on above: Order Comment: 411.2 Performed By: #### L 300.3900 ####[facility] [address] [place], [address] Prothrombin Time w/INRon 10- -4 INR Coag (PPP) [Relative time] 3.0 {INR} Normal [facility] Comment on above: Order Comment: 411.2 Performed By: #### L 300.3900 ####[facility] [address] [place], [address] PT Coag (PPP) [Time] 30.6 s High 11.7-14.[address] [facility] Comment on above: Order Comment: 411.2 Performed By: #### L 300.3900 ####[facility] [address] [place], [address] Prothrombin Time w/INRon - -2023 INR Coag (PPP) [Relative time] 2.6 {INR} Normal [facility] Comment on above: Order Comment: 411-2 Performed By: #### L 300.3900 ####[facility] [address] [place], [address] PT Coag (PPP) [Time] 27.5 s High 11.7-14.[address] [facility] Comment on above: Order Comment: 411-2 Performed By: #### L 300.3900 ####[facility] [address] [place], [address] Prothrombin Time w/INRon - -4 INR Coag (PPP) [Relative time] 2.3 {INR} Normal [facility] Comment on above: Order Comment: 411.2 Performed By: #### L 300.3900 ####[facility] [address] [place], [address] PT Coag (PPP) [Time] 25.5 s High 11.7-14.[address] [facility] Comment on above: Order Comment: 411.2 Performed By: #### L 300.3900 ####[facility] [address] [place], [address] Prothrombin Time w/INRon INR Coag (PPP) [Relative time] 1.9 {INR} Normal [facility] Comment on above: Order Comment: 411.2 Performed By: #### L 300.3900 ####[facility] [address] [place], [address] PT Coag (PPP) [Time] 21.3 s High 11.7-14.[address] [facility] Comment on above: Order Comment: 411.2 Performed By: #### L 300.3900 ####[facility] [address] [place], [address] Prothrombin Time w/INRon INR Coag (PPP) [Relative time] 2.5 {INR} Normal [facility] Comment on above: Order Comment: 411.2 Performed By: #### L 300.3900 ####[facility] [address] [place], [address] PT Coag (PPP) [Time] 26.5 s High 11.7-14.[address] [facility] Comment on above: Order Comment: 411.2 Performed By: #### L 300.3900 ####[facility] [address] [place], [address] Prothrombin Time w/INRon INR Coag (PPP) [Relative time] 2.9 {INR} Normal [facility] Comment on above: Order Comment: 411.2 Performed By: #### L 300.3900 ####[facility] [address] [place], [address] PT Coag (PPP) [Time] 30.2 s High 11.7-14.[address] [facility] Comment on above: Order Comment: 411.2 Performed By: #### L 300.3900 ####[facility] [address] [place], [address] Prothrombin Time w/INRon INR Coag (PPP) [Relative time] 3.6 {INR} Normal [facility] Comment on above: Order Comment: 411.2 Performed By: #### L 300.3900 ####[facility] [address] [place], [address] PT Coag (PPP) [Time] 35.3 s High 11.7-14.[address] [facility] Comment on above: Order Comment: 411.2 Performed By: #### L 300.3900 ####[facility] [address] [place], [address] Prothrombin Time w/INRon INR Coag (PPP) [Relative time] 2.8 {INR} Normal [facility] Comment on above: Order Comment: 411-2 Performed By: #### L 300.3900 ####[facility] [address] [place], [address] PT Coag (PPP) [Time] 29.4 s High 11.7-14.[address] [facility] Comment on above: Order Comment: 411-2 Performed By: #### L 300.3900 ####[facility] [address] [place], [address] Prothrombin Time w/INRon INR Coag (PPP) [Relative time] 2.9 {INR} Normal [facility] Comment on above: Order Comment: 411.2 Performed By: #### L 300.3900 ####[facility] [address] [place], [address] PT Coag (PPP) [Time] 29.9 s High 11.7-14.[address] [facility] Comment on above: Order Comment: 411.2 Performed By: #### L 300.3900 ####[facility] [address] [place], [address] Prothrombin Time w/INRon INR Coag (PPP) [Relative time] 2.2 {INR} Normal [facility] Comment on above: Order Comment: 411.2 Performed By: #### L 300.3900 ####[facility] [address] [place], [address] PT Coag (PPP) [Time] 24.1 s High 11.7-14.[address] [facility] Comment on above: Order Comment: 411.2 Performed By: #### L 300.3900 ####[facility] [address] [place], [address] Prothrombin Time w/INRon INR Coag (PPP) [Relative time] 2.1 {INR} Normal [facility] Comment on above: Order Comment: 411-2 Performed By: #### L 300.3900 ####[facility] [address] [place], [address] PT Coag (PPP) [Time] 23.0 s High 11.7-14.[address] [facility] Comment on above: Order Comment: 411-2 Performed By: #### L 300.3900 ####[facility] [address] [place], [address] Prothrombin Time w/INRon INR Coag (PPP) [Relative time] 2.8 {INR} Normal [facility] Comment on above: Performed By: #### L 300.3900 ####[facility] [address] [place], [address] PT Coag (PPP) [Time] 28.9 s High 11.7-14.[address] [facility] Comment on above: Performed By: #### L 300.3900 ####[facility] [address] [place], [address] Protime w/INR Fingerstickon 01-29-2024 INR Coag (PPP) [Relative time] 3.2 {INR} Normal [facility] Comment on above: Result Comment: Crit ical Value > 4.0 Performed By: #### L 9200.0000 ####[facility] [address] [place], [address] Protime Coagsen 31.8 SEC High 11.7-14.9 [facility] Comment on above: Performed By: #### L 9200.0000 ####[facility] [address] [place], [address] KEPPRA (LEVETIRACETAM)on KEPPRA 35.2 ug/mL Normal 10.0-40.0 [facility] Comment on above: Order Comment: 411-2 Result Comment: Perf ormed at: [facility] [id number] Director: Alpesh Vázquez MD, Phone: [phone] Performed By: #### L 300.3900, L3310.0000 ####[facility] [address] [place], [address] Prothrombin Time w/INRon INR Coag (PPP) [Relative time] 2.9 {INR} Normal [facility] Comment on above: Order Comment: 411-2 Performed By: #### L 300.3900, L3310.0000 ####[facility] [address] [place], [address] PT Coag (PPP) [Time] 30.1 s High 11.7-14.[address] [facility] Comment on above: Order Comment: 411-2 Performed By: #### L 300.3900, L3310.0000 ####[facility] [address] [place], [address] Prothrombin Time w/INRon INR Coag (PPP) [Relative time] 2.3 {INR} Normal [facility] Comment on above: Order Comment: 411-2 Performed By: #### L 300.3900 ####[facility] [address] [place], [address] PT Coag (PPP) [Time] 25.2 s High 11.7-14.[address] [facility] Comment on above: Order Comment: 411-2 Performed By: #### L 300.3900 ####[facility] [address] [place], [address] Prothrombin Time w/INRon INR Coag (PPP) [Relative time] 2.7 {INR} Normal [facility] Comment on above: Order Comment: 411-2 Performed By: #### L 300.3900 ####[facility] [address] [place], [address] PT Coag (PPP) [Time] 28.3 s High 11.7-14.[address] [facility] Comment on above: Order Comment: 411-2 Performed By: #### L 300.3900 ####[facility] [address] [place], [address] Protime w/INR Fingerstickon 01-10-2024 INR Coag (PPP) [Relative time] 3.5 {INR} Normal [facility] Comment on above: Result Comment: Crit ical Value > 4.0 Performed By: #### L 9200.0000 ####[facility] [address] [place], [address] Protime Coagsen 34.2 SEC High 11.7-14.9 [facility] Comment on above: Performed By: #### L 9200.0000 ####[facility] [address] [place], [address] CBC-Complete Blood Cnt No Di ffon 01-08-2024 Erythrocyte distribution width (RBC) [Ratio] 15.2 % High 11.6-14.6 [facility] Comment on above: Order Comment: 411-2 Performed By: #### L 100.0500, L300.3900 ####[facility] [address] [place], [address] Hematocrit (Bld) [Volume fraction] 39.0 % Low 40-54 [facility] Comment on above: Order Comment: 411-2 Performed By: #### L 100.0500, L300.3900 ####[facility] [address] [place], [address] Hemoglobin (Bld) [Mass/Vol] 12.1 g/dL Low 13.0-16.5 [facility] Comment on above: Order Comment: 411-2 Performed By: #### L 100.0500, L300.3900 ####[facility] [address] [place], [address] MCH (RBC) [Entitic mass] 27.1 pg Normal 27.0-32.0 [facility] Comment on above: Order Comment: 411-2 Performed By: #### L 100.0500, L300.3900 ####[facility] [address] [place], [address] MCHC (RBC) [Mass/Vol] 31.0 g/dL Low 32-36 [facility] Comment on above: Order Comment: 411-2 Performed By: #### L 100.0500, L300.3900 ####[facility] [address] [place], [address] MCV (RBC) [Entitic vol] 87.2 fL Normal 80-94 [facility] Comment on above: Order Comment: 411-2 Performed By: #### L 100.0500, L300.3900 ####[facility] [address] [place], [address] Platelet mean volume (Bld) [Entitic vol] 10.8 fL Normal 6.2-12.0 [facility] Comment on above: Order Comment: 411-2 Performed By: #### L 100.0500, L300.3900 ####[facility] [address] [place], [address] Platelets (Bld) [#/Vol] 300 10*3/uL Normal 150-450 [facility] Comment on above: Order Comment: 411-2 Performed By: #### L 100.0500, L300.3900 ####[facility] [address] [place], [address] RBC (Bld) [#/Vol] 4.47 10*6/uL Low 4.6-6.2 [facility] Comment on above: Order Comment: 411-2 Performed By: #### L 100.0500, L300.3900 ####[facility] [address] [place], [address] RDW SD 48.7 fl High 35.1-43.9 [facility] Comment on above: Order Comment: 411-2 Performed By: #### L 100.0500, L300.3900 ####[facility] [address] [place], [address] WBC (Bld) [#/Vol] 13.0 10*3/uL High 4.4-11.0 [facility] Comment on above: Order Comment: 411-2 Performed By: #### L 100.0500, L300.3900 ####[facility] [address] [place], [address] Prothrombin Time w/INRon INR Coag (PPP) [Relative time] 3.9 {INR} Normal [facility] Comment on above: Order Comment: 411-2 Performed By: #### L 100.0500, L300.3900 ####[facility] [address] [place], [address] PT Coag (PPP) [Time] 37.8 s High 11.7-14.[address] [facility] Comment on above: Order Comment: 411-2 Performed By: #### L 100.0500, L300.3900 ####[facility] [address] [place], [address] Urine Cultureon 01-03-2024 URC Culture exhibits no growth. Normal [facility] Comment on above: Performed By: #### M 100.2200, L400.0001, L300.3900 ####[facility] [address] [place], [address] Prothrombin Time w/INRon INR Coag (PPP) [Relative time] 3.0 {INR} Normal [facility] Comment on above: Performed By: #### M 100.2200, L400.0001, L300.3900 ####[facility] [address] [place], [address] PT Coag (PPP) [Time] 30.7 s High 11.7-14.[address] [facility] Comment on above: Performed By: #### M 100.2200, L400.0001, L300.3900 ####[facility] [address] [place], [address] Urinalysis, Completeon 01-01 RBC 0-5 SEEN Normal 0-5 [facility] Comment on above: Order Comment: CLEAN CATCH Performed By: #### M 100.2200, L400.0001, L300.3900 ####[facility] [address] [place], [address] BACTERIA 0 SEEN Normal None Seen [facility] Comment on above: Order Comment: CLEAN CATCH Performed By: #### M 100.2200, L400.0001, L300.3900 ####[facility] [address] [place], [address] EPI,SQUAMOUS 0 SEEN Normal 0-5 [facility] Comment on above: Order Comment: CLEAN CATCH Performed By: #### M 100.2200, L400.0001, L300.3900 ####[facility] [address] [place], [address] Mucus Ql (Urine sed) 0 SEEN Normal [facility] Comment on above: Order Comment: CLEAN CATCH Performed By: #### M 100.2200, L400.0001, L300.3900 ####[facility] [address] [place], [address] WBC 0 SEEN Normal 0-5 [facility] Comment on above: Order Comment: CLEAN CATCH Performed By: #### M 100.2200, L400.0001, L300.3900 ####[facility] [address] [place], [address] Basic Metabolic Profile (BMP )on 01-01-2024 BUN/CRE 25.0 RATIO High 10-20 [facility] Comment on above: Order Comment: 411.2 Performed By: #### L 300.3900, L100.0500, L500.2500 ####[facility] [address] [place], [address] CA,Total 9.1 mg/dL Normal 8.5-10.1 [facility] Comment on above: Order Comment: 411.2 Performed By: #### L 300.3900, L100.0500, L500.2500 ####[facility] [address] [place], [address] Chloride [Moles/Vol] 104 mmol/L Normal 98-[address] [facility] Comment on above: Order Comment: 411.2 Performed By: #### L 300.3900, L100.0500, L500.2500 ####[facility] [address] [place], [address] CO2 [Moles/Vol] 24.0 mmol/L Normal 21.0-32.0 [facility] Comment on above: Order Comment: 411.2 Performed By: #### L 300.3900, L100.0500, L500.2500 ####[facility] [address] [place], [address] Creatinine [Mass/Vol] 0.84 mg/dL Normal 0.70-1.30 [facility] Comment on above: Order Comment: 411.2 Result Comment: The validity of the calculated GFR GFRAA in patients over70 years has not been determined. Clinical correlation isessential. Performed By: #### L 300.3900, L100.0500, L500.2500 ####[facility] [address] [place], [address] EST GFR - AA 116 mL/min Normal >60 [facility] Comment on above: Order Comment: 411.2 Result Comment: Afri can [place] GFR Calc Performed By: #### L 300.3900, L100.0500, L500.2500 ####[facility] [address] [place], [address] GAP 9 Normal 5-15 [facility] Comment on above: Order Comment: 411.2 Performed By: #### L 300.3900, L100.0500, L500.2500 ####[facility] [address] [place], [address] GFR/1.73 sq M.predicted among non-blacks MDRD (S/P/Bld) [Vol rate/Area] 95 mL/min/{1.73_m2} Normal >60 [facility] Comment on above: Order Comment: 411.2 Result Comment: Non- GFR Calc Performed By: #### L 300.3900, L100.0500, L500.2500 ####[facility] [address] [place], [address] Glucose [Mass/Vol] 92 mg/dL Normal 74-106 [facility] Comment on above: Order Comment: 411.2 Performed By: #### L 300.3900, L100.0500, L500.2500 ####[facility] [address] [place], [address] Potassium [Moles/Vol] 4.2 mmol/L Normal 3.5-5.1 [facility] Comment on above: Order Comment: 411.2 Performed By: #### L 300.3900, L100.0500, L500.2500 ####[facility] [address] [place], [address] Sodium [Moles/Vol] 137 mmol/L Normal 136-145 [facility] Comment on above: Order Comment: 411.2 Performed By: #### L 300.3900, L100.0500, L500.2500 ####[facility] [address] [place], [address] Urea nitrogen [Mass/Vol] 21 mg/dL High 7-18 [facility] Comment on above: Order Comment: 411.2 Performed By: #### L 300.3900, L100.0500, L500.2500 ####[facility] [address] [place], [address] CBC-Complete Blood Cnt No Di ffon 01-01-2024 Erythrocyte distribution width (RBC) [Ratio] 14.9 % High 11.6-14.6 [facility] Comment on above: Order Comment: 411.2 Performed By: #### L 300.3900, L100.0500, L500.2500 ####[facility] [address] [place], [address] Hematocrit (Bld) [Volume fraction] 38.4 % Low 40-54 [facility] Comment on above: Order Comment: 411.2 Performed By: #### L 300.3900, L100.0500, L500.2500 ####[facility] [address] [place], [address] Hemoglobin (Bld) [Mass/Vol] 12.2 g/dL Low 13.0-16.5 [facility] Comment on above: Order Comment: 411.2 Performed By: #### L 300.3900, L100.0500, L500.2500 ####[facility] [address] [place], [address] MCH (RBC) [Entitic mass] 27.1 pg Normal 27.0-32.0 [facility] Comment on above: Order Comment: 411.2 Performed By: #### L 300.3900, L100.0500, L500.2500 ####[facility] [address] [place], [address] MCHC (RBC) [Mass/Vol] 31.8 g/dL Low 32-36 [facility] Comment on above: Order Comment: 411.2 Performed By: #### L 300.3900, L100.0500, L500.2500 ####[facility] [address] [place], [address] MCV (RBC) [Entitic vol] 85.3 fL Normal 80-94 [facility] Comment on above: Order Comment: 411.2 Performed By: #### L 300.3900, L100.0500, L500.2500 ####[facility] [address] [place], [address] Platelet mean volume (Bld) [Entitic vol] 10.1 fL Normal 6.2-12.0 [facility] Comment on above: Order Comment: 411.2 Performed By: #### L 300.3900, L100.0500, L500.2500 ####[facility] [address] [place], [address] Platelets (Bld) [#/Vol] 287 10*3/uL Normal 150-450 [facility] Comment on above: Order Comment: 411.2 Performed By: #### L 300.3900, L100.0500, L500.2500 ####[facility] [address] [place], [address] RBC (Bld) [#/Vol] 4.50 10*6/uL Low 4.6-6.2 [facility] Comment on above: Order Comment: 411.2 Performed By: #### L 300.3900, L100.0500, L500.2500 ####[facility] [address] [place], [address] RDW SD 46.5 fl High 35.1-43.9 [facility] Comment on above: Order Comment: 411.2 Performed By: #### L 300.3900, L100.0500, L500.2500 ####[facility] [address] [place], [address] WBC (Bld) [#/Vol] 14.8 10*3/uL High 4.4-11.0 [facility] Comment on above: Order Comment: 411.2 Performed By: #### L 300.3900, L100.0500, L500.2500 ####[facility] [address] [place], [address] Prothrombin Time w/INRon INR Coag (PPP) [Relative time] 2.5 {INR} Normal [facility] Comment on above: Order Comment: 411.2 Performed By: #### L 300.3900, L100.0500, L500.2500 ####[facility] [address] [place], [address] PT Coag (PPP) [Time] 26.6 s High 11.7-14.[address] [facility] Comment on above: Order Comment: 411.2 Performed By: #### L 300.3900, L100.0500, L500.2500 ####[facility] [address] [place], [address] Prothrombin Time w/INRon INR Coag (PPP) [Relative time] 2.1 {INR} Normal [facility] Comment on above: Order Comment: 411.2 Performed By: #### L 300.3900 ####[facility] [address] [place], [address] PT Coag (PPP) [Time] 23.5 s High 11.7-14.[address] [facility] Comment on above: Order Comment: 411.2 Performed By: #### L 300.3900 ####[facility] [address] [place], [address] Prothrombin Time w/INRon INR Coag (PPP) [Relative time] 3.2 {INR} Normal [facility] Comment on above: Order Comment: 411-2 Performed By: #### L 300.3900 ####[facility] [address] [place], [address] PT Coag (PPP) [Time] 32.6 s High 11.7-14.[address] [facility] Comment on above: Order Comment: 411-2 Performed By: #### L 300.3900 ####[facility] [address] [place], [address] Office Visiton 09-13-2023 Follow-up visit [id number] Tamie Sifuentes 1950 M Date Provider Department Center 09/13/2023 REBECCA FRANKLIN [facility] None Family History Problem Relation Age of Onset Heart disease Father Cancer Mother Family Status - Relation Status Age at Father Mother Level of Service:09916 SC OFFICE/OUTPATIENT ESTABLISHED MOD MDM 30 MIN [...] Hydrocephalus, adult (CMS/HCC) (HCC) Kidney stone Neuropathy JUKE [employer]OX SERVICER (ventriculoperitoneal) shunt status Past Surgical History: Procedure [...] tamsulosin (Flomax) 0.4 MG 24 hr capsule 2/24/24 Yes Historical Provider, warfarin (Coumadin) 2.5 MG [...] Hospital CT ABDOMEN PELVIS WO IV CONT [facility] 09-07-2023 CT ABDOMEN PELVIS WO IV CONTRAST Patient Name: ANDREW [facility]UENT[facility] 1950 [id number] Exam Date/Time: 09/06/2023 18:14 Procedure: CT ABDOMEN [...] a kidney stone; pt has a hernia [facility] 08-29-2023 36 Lm on daughters vm t o advise them to call the number for the manager product marketing to get clarification, and to call back with further questions [facility] 08-27-2023 36 Yes, they will need to call the number given to them. Normal [facility] 36 Please advise [facility] 08-21-2023 36 Name of caller: Zion holt Contact phone number: [phone] Relationship to Patient: patient Provider: MD Quinn Practice: [facility] Urology Chief Complaint/Reason for Call: Shanthi called [...] to reach out to call Maury Cedeño Survey Technician at [facility] [phone] to get clarifications. CAC did reach back out to [facility] and advised and provider Maury's #. Please advise Best time of day caller can be reached: Any Patient advised that office/PCP has 24-48 business hours to return their call: N/A Normal [facility] Laboratory - CoagulationOrde red By: Carlos Cavazos on 08-21-2023 INR Coag (Bld) [Relative time] 2.7 {INR} [facility] PT Coag (PPP) [Time] 28.9 s 11.7-14.[address] [facility] Office Visiton 08-13-2023 Follow-up visit [id number] Tamie Sifuentes cheng Gonzalez 1950 Walt Pak Provider Department Center 08/13/2023 [id number] BUCK [facility] None Family History Problem Relation Age of Onset Heart disease Father Cancer Mother Family Status - Relation Status Age at Father Mother Level of Service:43341 SC OFFICE/OUTPATIENT NEW MODERATE MDM 45 MINUTES Reason for Visit and Comments: New Patient [542] - Bilateral flank pain, hx of kidney stones Nephrolithiasis [139360] [facility] Progress Noteon 08-13-2023 Progress Note [...] Hydrocephalus, adult (CMS/HCC) (HCC) Kidney stone Neuropathy 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 Glucose [Mass/Vol] 98 mg/dL 74-106 [facility] Hemoglobin (Bld) [Mass/Vol] 12.5 g/dL 13.0-16.5 [facility] Potassium [Moles/Vol] 4.3 mmol/L 3.5-5.1 [facility] Sodium [Moles/Vol] 135 mmol/L 136-145 [facility] WBC (Bld) [#/Vol] 13.0 10*3/uL 4.4-11.0 [facility] Determination of erythrocyte mean corpuscular volume (MCV)Ordered By: Carlos Cavazos on 07-20-2023 MCV (RBC) [Entitic vol] 86.2 fL 80-94 [facility] Erythrocyte distribution wid th ratioOrdered By: Carlos Cavazos on 07-20-2023 Erythrocyte distribution width (RBC) [Ratio] 15.3 % 11.6-14.6 [facility] Erythrocyte distribution wid th standard deviationOrdered By: Carlos Cavazos on 07-20-2023 Erythrocyte distribution width (RBC) [Entitic vol] 48.1 fL 35.1-43.9 [facility] Hematocrit Auto (Bld) [Volum e fraction]Ordered By: Carlos Cavazos on 07-20-2023 Hematocrit (Bld) [Volume fraction] 39.9 % 40-54 [facility] Laboratory - Chemistry and C hemistry - challengeOrdered By: Carlos Cavazos on 07-20-2023 CO2 [Moles/Vol] 24.0 mmol/L 21.0-32.0 [facility] Urea nitrogen/Creatinine [Mass ratio] 24.6 mg/mg 10-20 [facility] Laboratory - Hematology and Cell countsOrdered By: Carlos Cavazos on 07-20-2023 MCH (RBC) [Entitic mass] 27.0 pg 27.0-32.0 [facility] MCHC (RBC) [Mass/Vol] 31.3 g/dL 32-36 [facility] Platelet mean volume (Bld) [Entitic vol] 10.7 fL 6.2-12.0 [facility] Platelets (Bld) [#/Vol] 260 10*3/uL 150-450 [facility] No Panel InformationOrdered By: Carlos Cavazos on 07-20-2023 Estimated GFR (MDRD) Amer 114 mL/min >60 [facility] Comment on above: GFR Calc Estimated GFR (MDRD) Non-Af Amer 94 mL/min >60 [facility] Comment on above: Non- GFR Calc RBC Auto (Bld) [#/Vol]Ordere d By: Carlos Cavazos on 07-20-2023 RBC (Bld) [#/Vol] 4.63 10*6/uL 4.6-6.2 [facility] Serum or plasma calcium oral urement (mass/volume)Ordered By: Carlos Cavazos on 07-20-2023 Calcium [Mass/Vol] 8.6 mg/dL 8.5-10.1 [facility] Serum or plasma creatinine m easurement (mass/volume)Ordered By: Carlos Cavazos on 07-20-2023 Creatinine [Mass/Vol] 0.85 mg/dL 0.70-1.30 [facility] Comment on above: The validity of the calculated GFR & GFRAA in patients over 70 years has not been determined. Clinical correlation is essential. Serum or plasma urea nitroge n measurement (mass/volume)Ordered By: Carlos Cavazos on 07-20-2023 Urea nitrogen [Mass/Vol] 21 mg/dL 7-18 [facility] Thin prep Papanicolaou smear with manual screeningOrdered By: Carlos Cavazos on 07-20-2023 Thin prep Papanicolaou smear with manual screening 5 5-15 [facility] Basophil percentageOrdered B y: Carlos Cavazos on 07-18-2023 Chloride [Moles/Vol] 102 mmol/L 98-[address] [facility] Glucose [Mass/Vol] 96 mg/dL 74-106 [facility] Hemoglobin (Bld) [Mass/Vol] 12.3 g/dL 13.0-16.5 [facility] Potassium [Moles/Vol] 4.2 mmol/L 3.5-5.1 [facility] Sodium [Moles/Vol] 136 mmol/L 136-145 [facility] WBC (Bld) [#/Vol] 14.7 10*3/uL 4.4-11.0 [facility] Determination of erythrocyte mean corpuscular volume (MCV)Ordered By: Carlos Cavazos on 07-18-2023 MCV (RBC) [Entitic vol] 85.4 fL 80-94 [facility] Erythrocyte distribution wid th ratioOrdered By: Carlos Cavazos on 07-18-2023 Erythrocyte distribution width (RBC) [Ratio] 15.1 % 11.6-14.6 [facility] Erythrocyte distribution wid th standard deviationOrdered By: Carlos Cavazos on 07-18-2023 Erythrocyte distribution width (RBC) [Entitic vol] 47.3 fL 35.1-43.9 [facility] Hematocrit Auto (Bld) [Volum e fraction]Ordered By: Carlos Cavazos on 07-18-2023 Hematocrit (Bld) [Volume fraction] 39.3 % 40-54 [facility] Laboratory - Chemistry and C hemistry - challengeOrdered By: Carlos Cavazos on 07-18-2023 CO2 [Moles/Vol] 27.0 mmol/L 21.0-32.0 [facility] Urea nitrogen/Creatinine [Mass ratio] 24.4 mg/mg 10-20 [facility] Laboratory - Hematology and Cell countsOrdered By: Carlos Cavazos on 07-18-2023 MCH (RBC) [Entitic mass] 26.7 pg 27.0-32.0 [facility] MCHC (RBC) [Mass/Vol] 31.3 g/dL 32-36 [facility] Platelet mean volume (Bld) [Entitic vol] 10.3 fL 6.2-12.0 [facility] Platelets (Bld) [#/Vol] 288 10*3/uL 150-450 [facility] No Panel InformationOrdered By: Carlos Cavazos on 07-18-2023 Estimated GFR (MDRD) Amer 113 mL/min >60 [facility] Comment on above: GFR Calc Estimated GFR (MDRD) Non-Af Amer 93 mL/min >60 [facility] Comment on above: Non- GFR Calc RBC Auto (Bld) [#/Vol]Ordere d By: Carlos Cavazos on 07-18-2023 RBC (Bld) [#/Vol] 4.60 10*6/uL 4.6-6.2 [facility] Serum or plasma calcium oral urement (mass/volume)Ordered By: Carlos Cavazos on 07-18-2023 Calcium [Mass/Vol] 8.9 mg/dL 8.5-10.1 [facility] Serum or plasma creatinine m easurement (mass/volume)Ordered By: Carlos Cavazos on 07-18-2023 Creatinine [Mass/Vol] 0.86 mg/dL 0.70-1.30 [facility] Comment on above: The validity of the calculated GFR & GFRAA in patients over 70 years has not been determined. Clinical correlation is essential. Serum or plasma urea nitroge n measurement (mass/volume)Ordered By: Carlos Cavazos on 07-18-2023 Urea nitrogen [Mass/Vol] 21 mg/dL 7-18 [facility] Thin prep Papanicolaou smear with manual screeningOrdered By: Carlos Cavazos on 07-18-2023 Thin prep Papanicolaou smear with manual screening 7 5-15 [facility] Basophil percentageOrdered B y: Carlos Cavazos on 07-17-2023 Basophil percentage 0-5 SEEN /hpf 0-5 [facility] Bilirubin Test strip Ql (U)O rdered By: Carlos Cavazos on 07-17-2023 Bilirubin Ql (U) Negative Negative [facility] Calcium oxalate crystals det ection in urine sediment by light microscopyOrdered By: Carlos Cavazos on 07-17-2023 Calcium oxalate crystals LM Ql (Urine sed) 1+ /hpf [facility] Culture, urineOrdered By: Sharif Crouch on 07-17-2023 Bacteria identified Cx Nom (U) Positive [facility] Ketones Test strip Ql (U)Ord ered By: Carlos Cavazos on 07-17-2023 Ketones Ql (U) Negative Negative [facility] Mucus LM Ql (Urine sed)Order ed By: Carlos Cavazos on 07-17-2023 Mucus Ql (Urine sed) 0 SEEN /hpf [facility] Nitrite Test strip Ql (U)Ord ered By: Carlos Cavazos on 07-17-2023 Nitrite Ql (U) Negative Negative [facility] No Panel InformationOrdered By: Carlos Cavazos on 07-17-2023 Urine RBC 0 SEEN /hpf 0-5 [facility] Protein Test strip Ql (U)Ord ered By: Carlos Cavazos on 07-17-2023 Protein Ql (U) Negative Negative [facility] Squamous epithelial cells de tection in urine sediment by light microscopyOrdered By: Carlos Cavazos on 07-17-2023 Epithelial cells.squamous LM Ql (Urine sed) 0-5 SEEN /hpf 0-5 [facility] Urine blood detectionOrdered By: Carlos Cavazos on 07-17-2023 RBC Ql (U) Negative Negative [facility] Urine clarityOrdered By: Ted Cavazos on 07-17-2023 Clarity (U) Clear Clear [facility] Urine color determinationOrd ered By: Carlos Cavazos on 07-17-2023 Color (U) Yellow Yellow [facility] Urine glucose detectionOrder ed By: Carlos Cavazos on 07-17-2023 Glucose Ql (U) Normal mg/dl Normal [facility] Urine leukocyte esterase det ection by dipstickOrdered By: Carlos Cavazos on 07-17-2023 Leukocyte esterase Test strip Ql (U) 25 /ul Negative [facility] Urine pHOrdered By: Carlos flores on 07-17-2023 pH (U) 6.0 [pH] 5.0 - 8.0 [facility] Urine sediment bacteria coun t by microscopy (number/high power field)Ordered By: Carlos Cavazos on 07-17-2023 Bacteria LM.HPF (Urine sed) [#/Area] 0 /[HPF] None Seen [facility] Urine specific gravity measu rementOrdered By: Carlos Cavazos on 07-17-2023 Specific gravity (U) [Rel density] 1.020 1.002-1.030 [facility] Urine urobilinogen measureme ntOrdered By: Carlos Cavazos on 07-17-2023 Urobilinogen Ql (U) Normal mg/dl Normal [facility] Absolute lymphocyte countOrd ered By: Carlos Cavazos on 07-16-2023 Lymphocytes Auto (Unsp spec) [#/Vol] 6.02 10*3/uL 0.83-4.51 [facility] Automated lymphocyte count a s percentage of total leukocytesOrdered By: Carlos Cavazos on 07-16-2023 Lymphocytes/100 WBC Auto (Unsp spec) 49.1 % 19-41 [facility] Basophil percentageOrdered B y: Carlos Cavazos on 07-16-2023 Basophils/100 WBC (Bld) 0.6 % 0-1 [facility] Chloride [Moles/Vol] 105 mmol/L 98-[address] [facility] Eosinophils/100 WBC (Bld) 2.0 % 0-5 [facility] Glucose [Mass/Vol] 93 mg/dL 74-106 [facility] Hemoglobin (Bld) [Mass/Vol] 12.1 g/dL 13.0-16.5 [facility] Monocytes/100 WBC (Bld) 5.3 % 0-10 [facility] Neutrophils (Bld) [#/Vol] 5.2 10*3/uL 2.0-7.7 [facility] Neutrophils/100 WBC (Bld) 42.8 % 47-70 [facility] Potassium [Moles/Vol] 4.3 mmol/L 3.5-5.1 [facility] Sodium [Moles/Vol] 138 mmol/L 136-145 [facility] WBC (Bld) [#/Vol] 12.3 10*3/uL 4.4-11.0 [facility] Blood manual differential co mment interpretation (narrative result)Ordered By: Carlos Cavazos on 07-16-2023 Manual differential comment Shemar (Bld) [Interp] SCANNED [facility] Determination of erythrocyte mean corpuscular volume (MCV)Ordered By: Carlos Cavazos on 07-16-2023 MCV (RBC) [Entitic vol] 86.8 fL 80-94 [facility] Erythrocyte distribution wid th ratioOrdered By: Carlos Cavazos on 07-16-2023 Erythrocyte distribution width (RBC) [Ratio] 15.3 % 11.6-14.6 [facility] Erythrocyte distribution wid th standard deviationOrdered By: Carlos Cavazos on 07-16-2023 Erythrocyte distribution width (RBC) [Entitic vol] 48.9 fL 35.1-43.9 [facility] Hematocrit Auto (Bld) [Volum e fraction]Ordered By: Carlos Cavazos on 07-16-2023 Hematocrit (Bld) [Volume fraction] 38.7 % 40-54 [facility] Immature granulocytes/100 WB C Auto (Bld)Ordered By: Carlos Cavazos on 07-16-2023 Immature granulocytes/100 WBC (Bld) 0.200 % 0.0-0.9 [facility] Comment on above: IG% - Immature Granu locytes (promyelocytes, myelocytes and metamyelocytes) > 1% indicates that a LEFT SHIFT is Present. Laboratory - Chemistry and C hemistry - challengeOrdered By: Carlos Cavazos on 07-16-2023 CO2 [Moles/Vol] 25.0 mmol/L 21.0-32.0 [facility] Urea nitrogen/Creatinine [Mass ratio] 21.0 mg/mg 10-20 [facility] Laboratory - CoagulationOrde red By: Carlos Cavazos on 07-16-2023 INR Coag (Bld) [Relative time] 2.4 {INR} [facility] PT Coag (PPP) [Time] 25.7 s 11.7-14.[address] [facility] Laboratory - Hematology and Cell countsOrdered By: Carlos Cavazos on 07-16-2023 MCH (RBC) [Entitic mass] 27.1 pg 27.0-32.0 [facility] MCHC (RBC) [Mass/Vol] 31.3 g/dL 32-36 [facility] Nucleated RBC/100 WBC (Bld) [Ratio] 0 % 0-5 [facility] Platelet mean volume (Bld) [Entitic vol] 10.5 fL 6.2-12.0 [facility] Platelets (Bld) [#/Vol] 289 10*3/uL 150-450 [facility] No Panel InformationOrdered By: Carlos Cavazos on 07-16-2023 Estimated GFR (MDRD) Amer 106 mL/min >60 [facility] Comment on above: GFR Calc Estimated GFR (MDRD) Non-Af Amer 88 mL/min >60 [facility] Comment on above: Non- GFR Calc Reactive Lymphocytes 1+ [facility] RBC Auto (Bld) [#/Vol]Ordere d By: Carlos Cavazos on 07-16-2023 RBC (Bld) [#/Vol] 4.46 10*6/uL 4.6-6.2 [facility] Serum or plasma calcium oral urement (mass/volume)Ordered By: Carlos Cavazos on 07-16-2023 Calcium [Mass/Vol] 9.0 mg/dL 8.5-10.1 [facility] Serum or plasma creatinine m easurement (mass/volume)Ordered By: Carlos Cavazos on 07-16-2023 Creatinine [Mass/Vol] 0.90 mg/dL 0.70-1.30 [facility] Comment on above: The validity of the calculated GFR & GFRAA in patients over 70 years has not been determined. Clinical correlation is essential. Serum or plasma urea nitroge n measurement (mass/volume)Ordered By: Carlos Cavazos on 07-16-2023 Urea nitrogen [Mass/Vol] 19 mg/dL 7-18 [facility] Thin prep Papanicolaou smear with manual screeningOrdered By: Carlos Cavazos on 07-16-2023 Thin prep Papanicolaou smear with manual screening 8 5-15 [facility] Absolute lymphocyte countOrd ered By: Carlos Cavazos on 07-13-2023 Lymphocytes Auto (Unsp spec) [#/Vol] 5.44 10*3/uL 0.83-4.51 [facility] Automated lymphocyte count a s percentage of total leukocytesOrdered By: Carlos Cavazos on 07-13-2023 Lymphocytes/100 WBC Auto (Unsp spec) 47.3 % 19-41 [facility] Basophil percentageOrdered B y: Carlos Cavazos on 07-13-2023 Basophils/100 WBC (Bld) 0.4 % 0-1 [facility] Chloride [Moles/Vol] 107 mmol/L 98-[address] [facility] Eosinophils/100 WBC (Bld) 1.7 % 0-5 [facility] Glucose [Mass/Vol] 96 mg/dL 74-106 [facility] Hemoglobin (Bld) [Mass/Vol] 13.5 g/dL 13.0-16.5 [facility] Monocytes/100 WBC (Bld) 4.3 % 0-10 [facility] Neutrophils (Bld) [#/Vol] 5.3 10*3/uL 2.0-7.7 [facility] Neutrophils/100 WBC (Bld) 46.0 % 47-70 [facility] Potassium [Moles/Vol] 4.0 mmol/L 3.5-5.1 [facility] Sodium [Moles/Vol] 139 mmol/L 136-145 [facility] WBC (Bld) [#/Vol] 11.5 10*3/uL 4.4-11.0 [facility] Determination of erythrocyte mean corpuscular volume (MCV)Ordered By: Carlos Cavazos on 07-13-2023 MCV (RBC) [Entitic vol] 86.1 fL 80-94 [facility] Erythrocyte distribution wid th ratioOrdered By: Carlos Cavazos on 07-13-2023 Erythrocyte distribution width (RBC) [Ratio] 15.2 % 11.6-14.6 [facility] Erythrocyte distribution wid th standard deviationOrdered By: Carlos Cavazos on 07-13-2023 Erythrocyte distribution width (RBC) [Entitic vol] 48.0 fL 35.1-43.9 [facility] Hematocrit Auto (Bld) [Volum e fraction]Ordered By: Carlos Cavazos on 07-13-2023 Hematocrit (Bld) [Volume fraction] 42.2 % 40-54 [facility] Immature granulocytes/100 WB C Auto (Bld)Ordered By: Carlos Cavazos on 07-13-2023 Immature granulocytes/100 WBC (Bld) 0.300 % 0.0-0.9 [facility] Comment on above: IG% - Immature Granu locytes (promyelocytes, myelocytes and metamyelocytes) > 1% indicates that a LEFT SHIFT is Present. Laboratory - Chemistry and C hemistry - challengeOrdered By: Carlos Cavazos on 07-13-2023 CO2 [Moles/Vol] 26.0 mmol/L 21.0-32.0 [facility] Urea nitrogen/Creatinine [Mass ratio] 21.8 mg/mg 10-20 [facility] Laboratory - Hematology and Cell countsOrdered By: Carlos Cavazos on 07-13-2023 MCH (RBC) [Entitic mass] 27.6 pg 27.0-32.0 [facility] MCHC (RBC) [Mass/Vol] 32.0 g/dL 32-36 [facility] Nucleated RBC/100 WBC (Bld) [Ratio] 0 % 0-5 [facility] Platelet mean volume (Bld) [Entitic vol] 10.1 fL 6.2-12.0 [facility] Platelets (Bld) [#/Vol] 279 10*3/uL 150-450 [facility] No Panel InformationOrdered By: Carlos Cavazos on 07-13-2023 Estimated GFR (MDRD) Amer 118 mL/min >60 [facility] Comment on above: GFR Calc Estimated GFR (MDRD) Non-Af Amer 98 mL/min >60 [facility] Comment on above: Non- GFR Calc Levetiracetam (Keppra) Level 25.5 ug/mL 10.0-40.0 [facility] Comment on above: Performed at: [address] [id number] Director: Alpesh Vázquez MD, Phone: [phone] RBC Auto (Bld) [#/Vol]Ordere d By: Carlos Cavazos on 07-13-2023 RBC (Bld) [#/Vol] 4.90 10*6/uL 4.6-6.2 [facility] Serum or plasma calcium oral urement (mass/volume)Ordered By: Carlos Cavazos on 07-13-2023 Calcium [Mass/Vol] 9.1 mg/dL 8.5-10.1 [facility] Serum or plasma creatinine m easurement (mass/volume)Ordered By: Carlos Cavazos on 07-13-2023 Creatinine [Mass/Vol] 0.82 mg/dL 0.70-1.30 [facility] Comment on above: The validity of the calculated GFR & GFRAA in patients over 70 years has not been determined. Clinical correlation is essential. Serum or plasma urea nitroge n measurement (mass/volume)Ordered By: Carlos Cavazos on 07-13-2023 Urea nitrogen [Mass/Vol] 18 mg/dL 7-18 [facility] Thin prep Papanicolaou smear with manual screeningOrdered By: Carlos Cavazos on 07-13-2023 Thin prep Papanicolaou smear with manual screening 6 5-15 [facility] No Panel InformationOrdered By: Carlos Cavazos on 07-12-2023 Valproic Acid (Depakene) Level < 3 ug/mL 50-100 [facility] Laboratory - CoagulationOrde red By: Carlos Cavazos on 07-05-2023 INR Coag (Bld) [Relative time] 2.4 {INR} [facility] PT Coag (PPP) [Time] 26.3 s 11.7-14.[address] [facility] Laboratory - CoagulationOrde red By: Carlos Cavazos on 07-02-2023 INR Coag (Bld) [Relative time] 1.5 {INR} [facility] PT Coag (PPP) [Time] 18.5 s 11.7-14.[address] [facility] Laboratory - CoagulationOrde red By: Carlos Cavazos on 06-28-2023 INR Coag (Bld) [Relative time] 1.7 {INR} [facility] PT Coag (PPP) [Time] 20.5 s 11.7-14.[address] [facility] 36on 06-25-2023 36 [facility] called in stating appt scheduled 07/10/23 Guy has to be made further out, pt being transported by cot. Changed appt to 08/13/23 per [facility] only avail time for transport, first avail with DR Buck at 10:00 AM. [facility] Laboratory - CoagulationOrde red By: Carlos Cavazos on 06-25-2023 INR Coag (Bld) [Relative time] 3.8 {INR} [facility] PT Coag (PPP) [Time] 38.2 s 11.7-14.[address] [facility] Laboratory - CoagulationOrde red By: Carlos Cavazos on 06-21-2023 INR Coag (Bld) [Relative time] 3.2 {INR} [facility] PT Coag (PPP) [Time] 32.9 s 11.7-14.[address] [facility] [address] [facility] No Panel InformationOrdered By: Carlos Cavazos on 06-13-2023 Valproic Acid (Depakene) Level < 3 ug/mL 50-100 [facility] - CoagulationOrde red By: Carlos Cavazos on 06-06-2023 PT Coag (PPP) [Time] 30.5 s 11.7-14.[address] [facility] Platelet poor plasma interna tional normalized ratio (INR)Ordered By: Carlos Cavazos on 06-06-2023 INR Coag (PPP) [Relative time] 2.9 {INR} [facility] International normalized rat io (INR) calculationOrdered By: Carlos Cavazos on 05-23-2023 INR Coag (PPP) [Relative time] 2.6 {INR} [facility] - CoagulationOrde red By: Carlos Cavazos on 05-23-2023 PT Coag (PPP) [Time] 27.7 s 11.7-14.[address] [facility] - CoagulationOrde red By: Carlos Cavazos on 05-09-2023 PT Coag (PPP) [Time] 24.1 s 11.7-14.[address] [facility] Whole blood international no rmalized ratio (INR)Ordered By: Carlos Cavazos on 05-09-2023 INR Coag (Bld) [Relative time] 2.1 {INR} [facility] - CoagulationOrde red By: Carlos Cavazos on 04-23-2023 PT Coag (PPP) [Time] 26.4 s 11.7-14.[address] [facility] Whole blood international no rmalized ratio (INR)Ordered By: Carlos Cavazos on 04-23-2023 INR Coag (Bld) [Relative time] 2.4 {INR} [facility] INR in Blood by Coagulation assayOrdered By: Carlos Cavazos on 04-09-2023 INR Coag (Bld) [Relative time] 2.1 {INR} [facility] - CoagulationOrde red By: Carlos Cavazos on 04-09-2023 PT Coag (PPP) [Time] 23.9 s 11.7-14.[address] [facility] INR in Blood by Coagulation assayOrdered By: Carlos Cavazos on 04-02-2023 INR Coag (Bld) [Relative time] 2.2 {INR} [facility] - CoagulationOrde red By: Carlos Cavazos on 04-02-2023 PT Coag (PPP) [Time] 24.5 s 11.7-14.[address] [facility] INR in Blood by Coagulation assayOrdered By: Carlos Cavazos on 03-26-2023 INR Coag (Bld) [Relative time] 1.7 {INR} [facility] - CoagulationOrde red By: Carlos Cavazos on 03-26-2023 PT Coag (PPP) [Time] 19.9 s 11.7-14.[address] [facility] INR in Blood by Coagulation assayOrdered By: Carlos Cavazos on 03-22-2023 INR Coag (Bld) [Relative time] 1.3 {INR} [facility] - CoagulationOrde red By: Carlos Cavazos on 03-22-2023 PT Coag (PPP) [Time] 16.4 s 11.7-14.[address] [facility] INR in Blood by Coagulation assayOrdered By: Carlos Cavaozs on 03-08-2023 INR Coag (Bld) [Relative time] 2.0 {INR} [facility] - CoagulationOrde red By: Carlos Cavazos on 03-08-2023 PT Coag (PPP) [Time] 22.5 s 11.7-14.[address] [facility] - CoagulationOrde red By: Carlos Cavazos on 02-22-2023 INR Coag (Bld) [Relative time] 2.2 {INR} [facility] Comment on above: Critical Value > 4.0 Whole blood prothrombin time Ordered By: Carlos Cavazos on 02-22-2023 PT Coag (Bld) [Time] 24.0 s 11.7-14.[address] [facility] INR in Blood by Coagulation assayOrdered By: Cliff Bruner on 02-15-2023 INR Coag (Bld) [Relative time] 2.0 {INR} [facility] - CoagulationOrde red By: Cliff Bruner on 02-15-2023 PT Coag (PPP) [Time] 22.8 s 11.7-14.[address] [facility] INR in Blood by Coagulation assayOrdered By: Carlos Cavazos on 02-08-2023 INR Coag (Bld) [Relative time] 2.1 {INR} [facility] - CoagulationOrde red By: Carlos Cavazos on 02-08-2023 PT Coag (PPP) [Time] 23.5 s 11.7-14.[address] [facility] INR in Blood by Coagulation assayOrdered By: Carlos Cavazos on 01-31-2023 INR Coag (Bld) [Relative time] 2.0 {INR} [facility] - CoagulationOrde red By: Carlos Cavazos on 01-31-2023 PT Coag (PPP) [Time] 22.4 s 11.7-14.[address] [facility] - CoagulationOrde red By: Carlos Cavazos on 01-29-2023 INR Coag (Bld) [Relative time] 1.8 {INR} [facility] Comment on above: Critical Value > 4.0 Whole blood prothrombin time Ordered By: Carlos Cavazos on 01-29-2023 PT Coag (Bld) [Time] 19.9 s 11.7-14.[address] [facility] INR in Blood by Coagulation assayOrdered By: Carlos Cavazos on 01-26-2023 INR Coag (Bld) [Relative time] 1.5 {INR} [facility] - CoagulationOrde red By: Carlos Cavazos on 01-26-2023 PT Coag (PPP) [Time] 18.3 s 11.7-14.[address] [facility] INR in Blood by Coagulation assayOrdered By: Carlos Cavazos on 01-24-2023 INR Coag (Bld) [Relative time] 1.3 {INR} [facility] - CoagulationOrde red By: Carlos Cavazos on 01-24-2023 PT Coag (PPP) [Time] 16.2 s 11.7-14.[address] [facility] Basophil percentageOrdered B y: Carlos Cavazos on 01-22-2023 Basophil percentage 0 SEEN /hpf 0-[address] [facility] Bilirubin Test strip Ql (U)O rdered By: Carlos Cavazos on 01-22-2023 Bilirubin Ql (U) Negative Negative [facility] Calcium oxalate crystals det ection in urine sediment by light microscopyOrdered By: Carlos Cavazos on 01-22-2023 Calcium oxalate crystals LM Ql (Urine sed) 1+ /hpf [facility] Culture, urineOrdered By: Sharif Crouch on 01-22-2023 Bacteria identified Cx Nom (U) Positive [facility] Ketones Test strip Ql (U)Ord ered By: Carlos Cavazos on 01-22-2023 Ketones Ql (U) Negative Negative [facility] Mucus LM Ql (Urine sed)Order ed By: Carlos Cavazos on 01-22-2023 Mucus Ql (Urine sed) 1+ /hpf [facility] Nitrite Test strip Ql (U)Ord ered By: Carlos Cavazos on 01-22-2023 Nitrite Ql (U) Negative Negative [facility] Protein Test strip Ql (U)Ord ered By: Carlos Cavazos on 01-22-2023 Protein Ql (U) Negative Negative [facility] Squamous epithelial cells de tection in urine sediment by light microscopyOrdered By: Carlos Cavazos on 01-22-2023 Epithelial cells.squamous LM Ql (Urine sed) 0 SEEN /hpf 0-5 [facility] Urine blood detectionOrdered By: Carlos Cavazos on 01-22-2023 RBC Ql (U) Negative Negative [facility] RBC Ql (U) 0 SEEN /hpf 0-5 [facility] Urine clarityOrdered By: Ted Cavazos on 01-22-2023 Clarity (U) Sl. Cloudy Clear [facility] Urine color determinationOrd ered By: Carlos Cavazos on 01-22-2023 Color (U) Yellow Yellow [facility] Urine glucose detectionOrder ed By: Carlos Cavazos on 01-22-2023 Glucose Ql (U) Normal mg/dl Normal [facility] Urine leukocyte esterase det ection by dipstickOrdered By: Carlos Cavazos on 01-22-2023 Leukocyte esterase Test strip Ql (U) Negative Negative [facility] Urine pHOrdered By: Carlos flores on 01-22-2023 pH (U) 5.0 [pH] 5.0 - 8.0 [facility] Urine sediment bacteria coun t by microscopy (number/high power field)Ordered By: Carlos Cavazos on 01-22-2023 Bacteria LM.HPF (Urine sed) [#/Area] 2 /[HPF] None Seen [facility] Urine specific gravity measu rementOrdered By: Carlos Cavazos on 01-22-2023 Specific gravity (U) [Rel density] 1.025 1.002-1.030 [facility] Urobilinogen Auto test strip Ql (U)Ordered By: Carlos Cavazos on 01-22-2023 Urobilinogen Ql (U) Normal mg/dl Normal [facility] INR in Blood by Coagulation assayOrdered By: Carlos Cavazos on 01-10-2023 INR Coag (Bld) [Relative time] 2.0 {INR} [facility] - CoagulationOrde red By: Carlos Cavazos on 01-10-2023 PT Coag (PPP) [Time] 22.6 s 11.7-14.[address] [facility] INR in Blood by Coagulation assayOrdered By: Carlos Cavazos on 12-27-2022 INR Coag (Bld) [Relative time] 2.1 {INR} [facility] - CoagulationOrde red By: Carlos Cavazos on 12-27-2022 PT Coag (PPP) [Time] 24.1 s 11.7-14.[address] [facility] INR in Blood by Coagulation assayOrdered By: Carlos Cavazos on 12-21-2022 INR Coag (Bld) [Relative time] 2.4 {INR} [facility] - CoagulationOrde red By: Carlos Cavazos on 12-21-2022 PT Coag (PPP) [Time] 26.7 s 11.7-14.[address] [facility] - CoagulationOrde red By: Carlos Cavazos on 12-14-2022 INR Coag (Bld) [Relative time] 2.3 {INR} [facility] Comment on above: Critical Value > 4.0 Whole blood prothrombin time Ordered By: Carlos Cavazos on 12-14-2022 PT Coag (Bld) [Time] 25.2 s 11.7-14.[address] [facility] - CoagulationOrde red By: Carlos Cavazos on 12-07-2022 INR Coag (Bld) [Relative time] 2.5 {INR} [facility] Comment on above: Critical Value > 4.0 Whole blood prothrombin time Ordered By: Carlos Cavazos on 12-07-2022 PT Coag (Bld) [Time] 26.9 s 11.7-14.[address] [facility] Amorphous sediment detection in urine sediment by light microscopyOrdered By: Carlos Cavazos on 11-24-2022 Amorphous sediment LM Ql (Urine sed) 1+ [facility] Basophil percentageOrdered B y: Carlos Cavazos on 11-24-2022 Basophil percentage 0 SEEN /hpf 0-[address] [facility] Bilirubin [Mass/Vol] 0.30 mg/dL 0.20-1.[address] [facility] Comment on above: For patients on eltr ombopag therapy, use of Dimension [place] TBIL is not recommended. Chloride [Moles/Vol] 107 mmol/L 98-[address] [facility] Glucose [Mass/Vol] 95 mg/dL 74-106 [facility] Potassium [Moles/Vol] 4.2 mmol/L 3.5-5.1 [facility] Protein [Mass/Vol] 6.9 g/dL 6.4-8.2 [facility] Sodium [Moles/Vol] 138 mmol/L 136-145 [facility] WBC (Bld) [#/Vol] 10.4 10*3/uL 4.4-11.0 [facility] Bilirubin Test strip Ql (U)O rdered By: Carlos Cavazos on 11-24-2022 Bilirubin Ql (U) Negative Negative [facility] Blood erythrocytes count (nu mber/volume)Ordered By: Carlos Cavazos on 11-24-2022 RBC (Bld) [#/Vol] 4.44 10*6/uL 4.6-6.2 [facility] Blood hemoglobin measurement (mass/volume)Ordered By: Carlos Cavazos on 11-24-2022 Hemoglobin (Bld) [Mass/Vol] 11.8 g/dL 13.0-16.5 [facility] Blood platelet mean volumeOr dered By: Carlos Cavazos on 11-24-2022 Platelet mean volume (Bld) [Entitic vol] 9.7 fL 6.2-12.0 [facility] Calcium oxalate crystals det ection in urine sediment by light microscopyOrdered By: Carlos Cavazos on 11-24-2022 Calcium oxalate crystals LM Ql (Urine sed) RARE /hpf [facility] Culture, urineOrdered By: Sharif Crouch on 11-24-2022 Bacteria identified Cx Nom (U) Positive [facility] Determination of erythrocyte mean corpuscular volume (MCV)Ordered By: Carlos Cavazos on 11-24-2022 MCV (RBC) [Entitic vol] 84.7 fL 80-94 [facility] Hematocrit Auto (Bld) [Volum e fraction]Ordered By: Carlos Cavazos on 11-24-2022 Hematocrit (Bld) [Volume fraction] 37.6 % 40-54 [facility] Ketones Test strip Ql (U)Ord ered By: Carlos Cavazos on 11-24-2022 Ketones Ql (U) Negative Negative [facility] Laboratory - Chemistry and C hemistry - challengeOrdered By: Carlos Cavazos on 11-24-2022 ALP [Catalytic activity/Vol] 103 U/L 45-117 [facility] ALT [Catalytic activity/Vol] 14 U/L 16-61 [facility] CO2 [Moles/Vol] 26.0 mmol/L 21.0-32.0 [facility] Globulin (S) [Mass/Vol] 4.0 g/dL 2.2-4.2 [facility] Urea nitrogen/Creatinine [Mass ratio] 24.1 mg/mg 10-20 [facility] Laboratory - Hematology and Cell countsOrdered By: Carlos Cavazos on 11-24-2022 Erythrocyte distribution width (RBC) [Entitic vol] 49.4 fL 35.1-43.9 [facility] Erythrocyte distribution width (RBC) [Ratio] 16.0 % 11.6-14.6 [facility] MCH (RBC) [Entitic mass] 26.6 pg 27.0-32.0 [facility] MCHC Auto (RBC) [Mass/Vol]Or dered By: Carlos Cavazos on 11-24-2022 MCHC (RBC) [Mass/Vol] 31.4 g/dL 32-36 [facility] Mucus LM Ql (Urine sed)Order ed By: Carlos Cavazos on 11-24-2022 Mucus Ql (Urine sed) 0 SEEN /hpf [facility] Nitrite Test strip Ql (U)Ord ered By: Carlos Cavazos on 11-24-2022 Nitrite Ql (U) Negative Negative [facility] No Panel InformationOrdered By: Carlos Cavazos on 11-24-2022 Estimated GFR (MDRD) Amer 118 mL/min >60 [facility] Comment on above: GFR Calc Estimated GFR (MDRD) Non-Af Amer 97 mL/min >60 [facility] Comment on above: Non- GFR Calc Platelets bldOrdered By: Ted Cavazos on 11-24-2022 Platelets (Bld) [#/Vol] 309 10*3/uL 150-450 [facility] Protein Test strip Ql (U)Ord ered By: Carlos Cavazos on 11-24-2022 Protein Ql (U) Negative Negative [facility] Serum or plasma albumin oral urement (mass/volume)Ordered By: Carlos Cavazos on 11-24-2022 Albumin [Mass/Vol] 2.9 g/dL 3.2-5.0 [facility] Serum or plasma albumin/glob ulin mass ratioOrdered By: Carlos Cavazos on 11-24-2022 Albumin/Globulin [Mass ratio] 0.7 {ratio} 0.9-2.4 [facility] Serum or plasma calcium oral urement (mass/volume)Ordered By: Carlos Cavazos on 11-24-2022 Calcium [Mass/Vol] 8.7 mg/dL 8.5-10.1 [facility] Serum or plasma creatinine m easurement (mass/volume)Ordered By: Carlos Cavazos on 11-24-2022 Creatinine [Mass/Vol] 0.83 mg/dL 0.70-1.30 [facility] Comment on above: The validity of the calculated GFR & GFRAA in patients over 70 years has not been determined. Clinical correlation is essential. Serum or plasma urea nitroge n measurement (mass/volume)Ordered By: Carlos Cavazos on 11-24-2022 Urea nitrogen [Mass/Vol] 20 mg/dL 7-18 [facility] Squamous epithelial cells de tection in urine sediment by light microscopyOrdered By: Carlos Cavazos on 11-24-2022 Epithelial cells.squamous LM Ql (Urine sed) 0 SEEN /hpf 0-5 [facility] Thin prep Papanicolaou smear with manual screeningOrdered By: Carlos Cavazos on 11-24-2022 Thin prep Papanicolaou smear with manual screening 10 U/L 15-37 [facility] Thin prep Papanicolaou smear with manual screening 5 5-15 [facility] Urine blood detectionOrdered By: Carlos Cavazos on 11-24-2022 RBC Ql (U) Negative Negative [facility] RBC Ql (U) 0 SEEN /hpf 0-5 [facility] Urine clarityOrdered By: Ted Cavazos on 11-24-2022 Clarity (U) Clear Clear [facility] Urine color determinationOrd ered By: Carlos Cavazos on 11-24-2022 Color (U) Yellow Yellow [facility] Urine glucose detectionOrder ed By: Carlos Cavazos on 11-24-2022 Glucose Ql (U) Normal mg/dl Normal [facility] Urine leukocyte esterase det ection by dipstickOrdered By: Carlos Cavazos on 11-24-2022 Leukocyte esterase Test strip Ql (U) Negative Negative [facility] Urine pHOrdered By: Carlos flores on 11-24-2022 pH (U) 7.0 [pH] 5.0 - 8.0 [facility] Urine sediment bacteria coun t by microscopy (number/high power field)Ordered By: Carlos Cavazos on 11-24-2022 Bacteria LM.HPF (Urine sed) [#/Area] 0 /[HPF] None Seen [facility] Urine specific gravity measu rementOrdered By: Carlos Cavazos on 11-24-2022 Specific gravity (U) [Rel density] 1.010 1.002-1.030 [facility] Urobilinogen Auto test strip Ql (U)Ordered By: Carlos Cavazos on 11-24-2022 Urobilinogen Ql (U) Normal mg/dl Normal [facility] Laboratory - CoagulationOrde red By: Carlos Cavazos on 11-23-2022 INR Coag (Bld) [Relative time] 2.2 {INR} [facility] Comment on above: Critical Value > 4.0 Whole blood prothrombin time Ordered By: Carlos Cavazos on 11-23-2022 PT Coag (Bld) [Time] 24.5 s 11.7-14.[address] [facility] Basophil percentageOrdered B y: Carlos Cavazos on 11-22-2022 Chloride [Moles/Vol] 105 mmol/L 98-[address] [facility] Glucose [Mass/Vol] 91 mg/dL 74-106 [facility] Potassium [Moles/Vol] 4.1 mmol/L 3.5-5.1 [facility] Sodium [Moles/Vol] 138 mmol/L 136-145 [facility] WBC (Bld) [#/Vol] 12.0 10*3/uL 4.4-11.0 [facility] Blood erythrocytes count (nu mber/volume)Ordered By: Carlos Cavazos on 11-22-2022 RBC (Bld) [#/Vol] 4.65 10*6/uL 4.6-6.2 [facility] Blood hemoglobin measurement (mass/volume)Ordered By: Carlos Cavazos on 11-22-2022 Hemoglobin (Bld) [Mass/Vol] 12.4 g/dL 13.0-16.5 [facility] Blood platelet mean volumeOr dered By: Carlos Cavazos on 11-22-2022 Platelet mean volume (Bld) [Entitic vol] 10.3 fL 6.2-12.0 [facility] Determination of erythrocyte mean corpuscular volume (MCV)Ordered By: Carlos Cavazos on 11-22-2022 MCV (RBC) [Entitic vol] 86.0 fL 80-94 [facility] Hematocrit Auto (Bld) [Volum e fraction]Ordered By: Carlos Cavazos on 11-22-2022 Hematocrit (Bld) [Volume fraction] 40.0 % 40-54 [facility] Laboratory - Chemistry and C hemistry - challengeOrdered By: Carlos Cavazos on 11-22-2022 CO2 [Moles/Vol] 25.0 mmol/L 21.0-32.0 [facility] Urea nitrogen/Creatinine [Mass ratio] 23.6 mg/mg 10-20 [facility] Laboratory - Hematology and Cell countsOrdered By: Carlos Cavazos on 11-22-2022 Erythrocyte distribution width (RBC) [Entitic vol] 50.0 fL 35.1-43.9 [facility] Erythrocyte distribution width (RBC) [Ratio] 15.9 % 11.6-14.6 [facility] MCH (RBC) [Entitic mass] 26.7 pg 27.0-32.0 [facility] MCHC Auto (RBC) [Mass/Vol]Or dered By: Carlos Cavazos on 11-22-2022 MCHC (RBC) [Mass/Vol] 31.0 g/dL 32-36 [facility] No Panel InformationOrdered By: Carlos Cavazos on 11-22-2022 Estimated GFR (MDRD) Amer 115 mL/min >60 [facility] Comment on above: GFR Calc Estimated GFR (MDRD) Non-Af Amer 95 mL/min >60 [facility] Comment on above: Non- GFR Calc Platelets bldOrdered By: Ted Cavazos on 11-22-2022 Platelets (Bld) [#/Vol] 320 10*3/uL 150-450 [facility] Serum or plasma calcium oral urement (mass/volume)Ordered By: Carlos Cavazos on 11-22-2022 Calcium [Mass/Vol] 8.7 mg/dL 8.5-10.1 [facility] Serum or plasma creatinine m easurement (mass/volume)Ordered By: Carlos Cavazos on 11-22-2022 Creatinine [Mass/Vol] 0.85 mg/dL 0.70-1.30 [facility] Comment on above: The validity of the calculated GFR & GFRAA in patients over 70 years has not been determined. Clinical correlation is essential. Serum or plasma urea nitroge n measurement (mass/volume)Ordered By: Carlos Cavazos on 11-22-2022 Urea nitrogen [Mass/Vol] 20 mg/dL 7-18 [facility] Thin prep Papanicolaou smear with manual screeningOrdered By: Carlos Cavazos on 11-22-2022 Thin prep Papanicolaou smear with manual screening 8 5-15 [facility] - CoagulationOrde red By: Carlos Cavazos on 11-09-2022 INR Coag (Bld) [Relative time] 2.1 {INR} [facility] Comment on above: Critical Value > 4.0 Whole blood prothrombin time Ordered By: Carlos Cavazos on 11-09-2022 PT Coag (Bld) [Time] 22.6 s 11.7-14.[address] [facility] - CoagulationOrde red By: Carlos Cavazos on 10-26-2022 INR Coag (Bld) [Relative time] 2.6 {INR} [facility] Comment on above: Critical Value > 4.0 Whole blood prothrombin time Ordered By: Carlos Cavazos on 10-26-2022 PT Coag (Bld) [Time] 28.5 s 11.7-14.[address] [facility] - CoagulationOrde red By: Carlos Cavazos on 10-12-2022 INR Coag (Bld) [Relative time] 2.4 {INR} [facility] Comment on above: Critical Value > 4.0 Whole blood prothrombin time Ordered By: Carlos Cavazos on 10-12-2022 PT Coag (Bld) [Time] 26.4 s 11.7-14.[address] [facility] - CoagulationOrde red By: Carlos Cavazos on 10-05-2022 INR Coag (Bld) [Relative time] 2.6 {INR} [facility] Comment on above: Critical Value > 4.0 Whole blood prothrombin time Ordered By: Carlos Cavazos on 10-05-2022 PT Coag (Bld) [Time] 28.0 s 11.7-14.[address] [facility] - CoagulationOrde red By: Carlos Cavazos on 09-28-2022 INR Coag (Bld) [Relative time] 2.7 {INR} [facility] Comment on above: Critical Value > 4.0 Whole blood prothrombin time Ordered By: Carlos Cavazos on 09-28-2022 PT Coag (Bld) [Time] 28.9 s 11.7-14.[address] [facility] - CoagulationOrde red By: Carlos Cavazos on 09-14-2022 INR Coag (Bld) [Relative time] 2.5 {INR} [facility] Comment on above: Critical Value > 4.0 Whole blood prothrombin time Ordered By: Carlos Cavazos on 09-14-2022 PT Coag (Bld) [Time] 27.4 s 11.7-14.[address] [facility] - CoagulationOrde red By: Carlos Cavazos on 08-31-2022 INR Coag (Bld) [Relative time] 2.3 {INR} [facility] Comment on above: Critical Value > 4.0 Whole blood prothrombin time Ordered By: Carlos Cavazos on 08-31-2022 PT Coag (Bld) [Time] 25.4 s 11.7-14.[address] [facility] Basophil percentageOrdered B y: Carlos Cavazos on 08-23-2022 Chloride [Moles/Vol] 108 mmol/L 98-[address] [facility] Glucose [Mass/Vol] 86 mg/dL 74-106 [facility] Potassium [Moles/Vol] 4.3 mmol/L 3.5-5.1 [facility] Sodium [Moles/Vol] 136 mmol/L 136-145 [facility] WBC (Bld) [#/Vol] 10.0 10*3/uL 4.4-11.0 [facility] Blood erythrocytes count (nu mber/volume)Ordered By: Carlos Cavazos on 08-23-2022 RBC (Bld) [#/Vol] 4.77 10*6/uL 4.6-6.2 [facility] Blood hemoglobin measurement (mass/volume)Ordered By: Carlos Cavazos on 08-23-2022 Hemoglobin (Bld) [Mass/Vol] 12.5 g/dL 13.0-16.5 [facility] Blood platelet mean volumeOr dered By: Carlos Cavazos on 08-23-2022 Platelet mean volume (Bld) [Entitic vol] 11.0 fL 6.2-12.0 [facility] Determination of erythrocyte mean corpuscular volume (MCV)Ordered By: Carlos Cavazos on 08-23-2022 MCV (RBC) [Entitic vol] 84.3 fL 80-94 [facility] Hematocrit Auto (Bld) [Volum e fraction]Ordered By: Carlos Cavazos on 08-23-2022 Hematocrit (Bld) [Volume fraction] 40.2 % 40-54 [facility] Laboratory - Chemistry and C hemistry - challengeOrdered By: Carlos Cavazos on 08-23-2022 CO2 [Moles/Vol] 24.0 mmol/L 21.0-32.0 [facility] Urea nitrogen/Creatinine [Mass ratio] 22.8 mg/mg 10-20 [facility] Laboratory - Hematology and Cell countsOrdered By: Carlos Cavazos on 08-23-2022 Erythrocyte distribution width (RBC) [Entitic vol] 49.3 fL 35.1-43.9 [facility] Erythrocyte distribution width (RBC) [Ratio] 16.0 % 11.6-14.6 [facility] MCH (RBC) [Entitic mass] 26.2 pg 27.0-32.0 [facility] MCHC Auto (RBC) [Mass/Vol]Or dered By: Carlos Cavazos on 08-23-2022 MCHC (RBC) [Mass/Vol] 31.1 g/dL 32-36 [facility] No Panel InformationOrdered By: Carlos Cavazos on 08-23-2022 Estimated GFR (MDRD) Amer 134 mL/min >60 [facility] Comment on above: GFR Calc Estimated GFR (MDRD) Non-Af Amer 110 mL/min >60 [facility] Comment on above: Non- GFR Calc Platelets bldOrdered By: Ted Cavazos on 08-23-2022 Platelets (Bld) [#/Vol] 268 10*3/uL 150-450 [facility] Serum or plasma calcium oral urement (mass/volume)Ordered By: Carlos Cavazos on 08-23-2022 Calcium [Mass/Vol] 9.1 mg/dL 8.5-10.1 [facility] Serum or plasma creatinine m easurement (mass/volume)Ordered By: Carlos Cavazos on 08-23-2022 Creatinine [Mass/Vol] 0.74 mg/dL 0.70-1.30 [facility] Comment on above: The validity of the calculated GFR & GFRAA in patients over 70 years has not been determined. Clinical correlation is essential. Serum or plasma urea nitroge n measurement (mass/volume)Ordered By: Carlos Cavazos on 08-23-2022 Urea nitrogen [Mass/Vol] 17 mg/dL 7-18 [facility] Thin prep Papanicolaou smear with manual screeningOrdered By: Carlos Cavazos on 08-23-2022 Thin prep Papanicolaou smear with manual screening 4 5-15 [facility] Laboratory - CoagulationOrde red By: Carlos Cavazos on 08-17-2022 INR Coag (Bld) [Relative time] 2.8 {INR} [facility] Comment on above: Critical Value > 4.0 Whole blood prothrombin time Ordered By: Carlos Cavazos on 08-17-2022 PT Coag (Bld) [Time] 29.6 s 11.7-14.[address] [facility] Laboratory - CoagulationOrde red By: Carlos Cavazos on 08-14-2022 INR Coag (Bld) [Relative time] 3.9 {INR} [facility] Comment on above: Critical Value > 4.0 Whole blood prothrombin time Ordered By: Carlos Cavazos on 08-14-2022 PT Coag (Bld) [Time] 40.6 s 11.7-14.[address] [facility] Laboratory - CoagulationOrde red By: Carlos Cavazos on 07-31-2022 INR Coag (Bld) [Relative time] 2.5 {INR} [facility] Comment on above: Critical Value > 4.0 Whole blood prothrombin time Ordered By: Carlos Cavazos on 07-31-2022 PT Coag (Bld) [Time] 26.8 s 11.7-14.[address] [facility] INR in Blood by Coagulation assayOrdered By: Carlos Cavazos on 07-24-2022 INR Coag (Bld) [Relative time] 2.3 {INR} [facility] Laboratory - CoagulationOrde red By: Carlos Cavazos on 07-24-2022 PT Coag (PPP) [Time] 24.7 s 11.7-14.[address] [facility] Laboratory - CoagulationOrde red By: Carlos Cavazos on 07-20-2022 INR Coag (Bld) [Relative time] 1.9 {INR} [facility] Comment on above: Critical Value > 4.0 Whole blood prothrombin time Ordered By: Carlos Cavazos on 07-20-2022 PT Coag (Bld) [Time] 20.6 s 11.7-14.[address] [facility] Laboratory - CoagulationOrde red By: Carlos aCvazos on 07-17-2022 INR Coag (Bld) [Relative time] 1.3 {INR} [facility] Comment on above: Critical Value > 4.0 Whole blood prothrombin time Ordered By: Carlos Cavazos on 07-17-2022 PT Coag (Bld) [Time] 15.9 s 11.7-14.[address] [facility] Basophil percentageOrdered B y: Carlos Cavazos on 07-11-2022 Chloride [Moles/Vol] 105 mmol/L 98-[address] [facility] Glucose [Mass/Vol] 97 mg/dL 74-106 [facility] Potassium [Moles/Vol] 3.9 mmol/L 3.5-5.1 [facility] Sodium [Moles/Vol] 140 mmol/L 136-145 [facility] WBC (Bld) [#/Vol] 9.4 10*3/uL 4.4-11.0 [facility] Blood erythrocytes count (nu mber/volume)Ordered By: Carlos Cavazos on 07-11-2022 RBC (Bld) [#/Vol] 4.66 10*6/uL 4.6-6.2 [facility] Blood hemoglobin measurement (mass/volume)Ordered By: Carlos Cavazos on 07-11-2022 Hemoglobin (Bld) [Mass/Vol] 12.0 g/dL 13.0-16.5 [facility] Blood platelet mean volumeOr dered By: Carlos Cavazos on 07-11-2022 Platelet mean volume (Bld) [Entitic vol] 10.4 fL 6.2-12.0 [facility] Determination of erythrocyte mean corpuscular volume (MCV)Ordered By: Carlos Cavazos on 07-11-2022 MCV (RBC) [Entitic vol] 83.7 fL 80-94 [facility] Hematocrit Auto (Bld) [Volum e fraction]Ordered By: Carlos Cavazos on 07-11-2022 Hematocrit (Bld) [Volume fraction] 39.0 % 40-54 [facility] Laboratory - Chemistry and C hemistry - challengeOrdered By: Carlos Cavazos on 07-11-2022 CO2 [Moles/Vol] 28.0 mmol/L 21.0-32.0 [facility] Urea nitrogen/Creatinine [Mass ratio] 23.0 mg/mg 10-20 [facility] Laboratory - Hematology and Cell countsOrdered By: Carlos Cavazos on 07-11-2022 Erythrocyte distribution width (RBC) [Entitic vol] 51.0 fL 35.1-43.9 [facility] Erythrocyte distribution width (RBC) [Ratio] 16.8 % 11.6-14.6 [facility] MCH (RBC) [Entitic mass] 25.8 pg 27.0-32.0 [facility] MCHC Auto (RBC) [Mass/Vol]Or dered By: Carlos Cavazos on 07-11-2022 MCHC (RBC) [Mass/Vol] 30.8 g/dL 32-36 [facility] No Panel InformationOrdered By: Carlos Cavazos on 07-11-2022 Estimated GFR (MDRD) Amer 126 mL/min >60 [facility] Comment on above: GFR Calc Estimated GFR (MDRD) Non-Af Amer 104 mL/min >60 [facility] Comment on above: Non- GFR Calc Platelets bldOrdered By: Ted Cavazos on 07-11-2022 Platelets (Bld) [#/Vol] 291 10*3/uL 150-450 [facility] Serum or plasma calcium oral urement (mass/volume)Ordered By: Carlos Cavazos on 07-11-2022 Calcium [Mass/Vol] 9.2 mg/dL 8.5-10.1 [facility] Serum or plasma creatinine m easurement (mass/volume)Ordered By: Carlos Cavazos on 07-11-2022 Creatinine [Mass/Vol] 0.78 mg/dL 0.70-1.30 [facility] Comment on above: The validity of the calculated GFR & GFRAA in patients over 70 years has not been determined. Clinical correlation is essential. Serum or plasma urea nitroge n measurement (mass/volume)Ordered By: Carlos Cavazos on 03-07-2023 Urea nitrogen [Mass/Vol] 18 mg/dL 7-18 [facility] Thin prep Papanicolaou smear with manual screeningOrdered By: Carlos Cavazos on 07-11-2022 Thin prep Papanicolaou smear with manual screening 7 5-15 [facility] Laboratory - CoagulationOrde red By: Carlos Cavazos on 07-10-2022 INR Coag (Bld) [Relative time] 1.8 {INR} [facility] Comment on above: Critical Value > 4.0 Whole blood prothrombin time Ordered By: Carlos Cavazos on 07-10-2022 PT Coag (Bld) [Time] 21.0 s 11.7-14.[address] [facility] Laboratory - CoagulationOrde red By: Carlos Cavazos on 07-03-2022 INR Coag (Bld) [Relative time] 1.9 {INR} [facility] Comment on above: Critical Value > 4.0 Whole blood prothrombin time Ordered By: Carlos Cavazos on 07-03-2022 PT Coag (Bld) [Time] 22.7 s 11.7-14.[address] [facility] INR in Blood by Coagulation assayOrdered By: Carlos Cavazos on 06-27-2022 INR Coag (Bld) [Relative time] 2.9 {INR} [facility] Laboratory - CoagulationOrde red By: Carlos Cavazos on 06-27-2022 PT Coag (PPP) [Time] 29.9 s 11.7-14.[address] [facility] Laboratory - CoagulationOrde red By: Carlos Cavazos on 06-13-2022 INR Coag (Bld) [Relative time] 2.1 {INR} [facility] Comment on above: Critical Value > 4.0 Whole blood prothrombin time Ordered By: Carlos Cavazos on 06-13-2022 PT Coag (Bld) [Time] 24.4 s 11.7-14.[address] [facility] Laboratory - CoagulationOrde red By: Carlos Cavazos on 06-06-2022 INR Coag (Bld) [Relative time] 1.5 {INR} [facility] Comment on above: Critical Value > 4.0 Whole blood prothrombin time Ordered By: Carlos Cavazos on 06-06-2022 PT Coag (Bld) [Time] 18.4 s 11.7-14.[address] [facility] Basophil percentageOrdered B y: Carlos Cavazos on 05-30-2022 Chloride [Moles/Vol] 105 mmol/L 98-[address] [facility] Glucose [Mass/Vol] 95 mg/dL 74-106 [facility] Potassium [Moles/Vol] 3.9 mmol/L 3.5-5.1 [facility] Sodium [Moles/Vol] 140 mmol/L 136-145 [facility] WBC (Bld) [#/Vol] 7.6 10*3/uL 4.4-11.0 [facility] Blood erythrocytes count (nu mber/volume)Ordered By: Carlos Cavazos on 05-30-2022 RBC (Bld) [#/Vol] 4.79 10*6/uL 4.6-6.2 [facility] Blood hemoglobin measurement (mass/volume)Ordered By: Carlos Cavazos on 05-30-2022 Hemoglobin (Bld) [Mass/Vol] 12.1 g/dL 13.0-16.5 [facility] Blood platelet mean volumeOr dered By: Carlos Cavazos on 05-30-2022 Platelet mean volume (Bld) [Entitic vol] 10.4 fL 6.2-12.0 [facility] Determination of erythrocyte mean corpuscular volume (MCV)Ordered By: Carlos Cavazos on 05-30-2022 MCV (RBC) [Entitic vol] 82.5 fL 80-94 [facility] Hematocrit Auto (Bld) [Volum e fraction]Ordered By: Carlos Cavazos on 05-30-2022 Hematocrit (Bld) [Volume fraction] 39.5 % 40-54 [facility] INR in Blood by Coagulation assayOrdered By: Carlos Cavazos on 05-30-2022 INR Coag (Bld) [Relative time] 1.9 {INR} [facility] Laboratory - Chemistry and C hemistry - challengeOrdered By: Carlos Cavazos on 05-30-2022 CO2 [Moles/Vol] 27.0 mmol/L 21.0-32.0 [facility] Urea nitrogen/Creatinine [Mass ratio] 21.4 mg/mg 10-20 [facility] Laboratory - CoagulationOrde red By: Carlos Cavazos on 05-30-2022 PT Coag (PPP) [Time] 21.6 s 11.7-14.[address] [facility] Laboratory - Hematology and Cell countsOrdered By: Carlos Cavazos on 05-30-2022 Erythrocyte distribution width (RBC) [Entitic vol] 48.8 fL 35.1-43.9 [facility] Erythrocyte distribution width (RBC) [Ratio] 16.2 % 11.6-14.6 [facility] MCH (RBC) [Entitic mass] 25.3 pg 27.0-32.0 [facility] MCHC Auto (RBC) [Mass/Vol]Or dered By: Carlos Cavazos on 05-30-2022 MCHC (RBC) [Mass/Vol] 30.6 g/dL 32-36 [facility] No Panel InformationOrdered By: Carlos Cavazos on 05-30-2022 Estimated GFR (MDRD) Amer 133 mL/min >60 [facility] Comment on above: GFR Calc Estimated GFR (MDRD) Non-Af Amer 110 mL/min >60 [facility] Comment on above: Non- GFR Calc Platelets bldOrdered By: Ted Cavazos on 05-30-2022 Platelets (Bld) [#/Vol] 308 10*3/uL 150-450 [facility] Serum or plasma calcium oral urement (mass/volume)Ordered By: Carlos Cavazos on 05-30-2022 Calcium [Mass/Vol] 9.1 mg/dL 8.5-10.1 [facility] Serum or plasma creatinine m easurement (mass/volume)Ordered By: Carlos Cavazos on 05-30-2022 Creatinine [Mass/Vol] 0.75 mg/dL 0.70-1.30 [facility] Comment on above: The validity of the calculated GFR & GFRAA in patients over 70 years has not been determined. Clinical correlation is essential. Serum or plasma urea nitroge n measurement (mass/volume)Ordered By: Carlos Cavazos on 05-30-2022 Urea nitrogen [Mass/Vol] 16 mg/dL 7-18 [facility] Thin prep Papanicolaou smear with manual screeningOrdered By: Carlos Cavazos on 05-30-2022 Thin prep Papanicolaou smear with manual screening 8 5-15 [facility] Laboratory - CoagulationOrde red By: Carlos Cavazos on 05-16-2022 INR Coag (Bld) [Relative time] 2.6 {INR} [facility] Comment on above: Critical Value > 4.0 Whole blood prothrombin time Ordered By: Carlos Cavazos on 05-16-2022 PT Coag (Bld) [Time] 29.9 s 11.7-14.[address] [facility] Laboratory - CoagulationOrde red By: Carlos Cavazos on 05-02-2022 INR Coag (Bld) [Relative time] 2.0 {INR} [facility] Comment on above: Critical Value > 4.0 Whole blood prothrombin time Ordered By: Carlos Cavazos on 05-02-2022 PT Coag (Bld) [Time] 23.2 s 11.7-14.[address] [facility] Laboratory - CoagulationOrde red By: Carlos Cavazos on 04-27-2022 INR Coag (Bld) [Relative time] 2.7 {INR} [facility] Comment on above: Critical Value > 4.0 Whole blood prothrombin time Ordered By: Carlos Cavazos on 04-27-2022 PT Coag (Bld) [Time] 31.1 s 11.7-14.[address] [facility] Laboratory - CoagulationOrde red By: Carlos Cavazos on 04-26-2022 INR Coag (Bld) [Relative time] 2.8 {INR} [facility] Comment on above: Critical Value > 4.0 Whole blood prothrombin time Ordered By: Carlos Cavazos on 04-26-2022 PT Coag (Bld) [Time] 32.6 s 11.7-14.[address] [facility] Laboratory - CoagulationOrde red By: Carlos Cavazos on 04-11-2022 INR Coag (Bld) [Relative time] 2.9 {INR} [facility] Comment on above: Critical Value > 4.0 Whole blood prothrombin time Ordered By: Carlos Cavazos on 04-11-2022 PT Coag (Bld) [Time] 32.8 s 11.7-14.[address] [facility] Laboratory - CoagulationOrde red By: Carlos Cavazos on 03-28-2022 INR Coag (Bld) [Relative time] 2.1 {INR} [facility] Comment on above: Critical Value > 4.0 Whole blood prothrombin time Ordered By: Carlos Cavazos on 03-28-2022 PT Coag (Bld) [Time] 24.8 s 11.7-14.[address] [facility] Laboratory - CoagulationOrde red By: Carlos Cavazos on 03-23-2022 INR Coag (Bld) [Relative time] 1.7 {INR} [facility] Comment on above: Critical Value > 4.0 Whole blood prothrombin time Ordered By: Carlos Cavazos on 03-23-2022 PT Coag (Bld) [Time] 20.9 s 11.7-14.[address] [facility] Laboratory - CoagulationOrde red By: Carlos Cavazos on 03-16-2022 INR Coag (Bld) [Relative time] 1.7 {INR} [facility] Comment on above: Critical Value > 4.0 Whole blood prothrombin time Ordered By: Carlos Cavazos on 03-16-2022 PT Coag (Bld) [Time] 19.9 s 11.7-14.[address] [facility] Laboratory - CoagulationOrde red By: Carlos Cavazos on 03-09-2022 INR Coag (Bld) [Relative time] 1.8 {INR} [facility] Comment on above: Critical Value > 4.0 Whole blood prothrombin time Ordered By: Carlos Cavazos on 03-09-2022 PT Coag (Bld) [Time] 21.9 s 11.7-14.[address] [facility] Laboratory - CoagulationOrde red By: Carlos Cavazos on 03-06-2022 INR Coag (Bld) [Relative time] 1.7 {INR} [facility] Comment on above: Critical Value > 4.0 Whole blood prothrombin time Ordered By: Carlos Cavazos on 03-06-2022 PT Coag (Bld) [Time] 20.0 s 11.7-14.[address] [facility] CBC with Auto Differentialon 03-02-2022 Absolute [...] - 10.7 10*3/uL [facility] Test Performed by [facility], [address] [place] [id number] [facility] CT HEAD WO CONTRASTon 2021 Patient Name: ANDREW SIFUENTES Computed Tomography ACCESSION EXAM DATE/TIME PROCEDURE ORDERING PROVIDER [id number] 03/02/2022 13:[address] Head or Brain w/o [id number] -LANETTE MUNGUIA Contrast CPT code 01281 Reason For Exam (CT Head or Brain [...] tubes (parent active on the left for [employer] shunting and disconnected on the right). 2. No definite evidence of acute infarction (MRI more sensitive), mass lesion, nor hemorrhage. Report Dictated on --- Final --- Dictated: 03/02/2022 1:35 pm Dictating Physician: MD GUTIERREZ WILLIAM Signed Date and Time: 03/02/2022 1:39 pm Signed by: MD GUTIERREZ WILLIAM Transcribed Date and Time: 03/02/2022 1:35 [facility] RAD Anant Gutierrez MD - 03/02/2022 Patient Name: ANDREW SIFUENTES Computed Tomography ACCESSION EXAM DATE/TIME PROCEDURE ORDERING PROVIDER [id number] 03/02/2022 13:[address] Head or Brain w/o [id number] -LANETTE MUNGUIA Contrast CPT code 39933 Reason For Exam (CT Head or Brain [...] tubes (parent active on the left for [employer] shunting and disconnected on the right). 2. [...] Tomography ACCESSION EXAM DATE/TIME PROCEDURE ORDERING PROVIDER [id number] 03/02/2022 13:[address] Head or Brain w/o [id number] -LANETTE MUNGUIA Contrast CPT code 58287 Reason For Exam (CT Head or Brain [...] tubes (parent active on the left for [employer] shunting and disconnected on the right). 2. No definite evidence of acute infarction (MRI more sensitive), mass lesion, nor hemorrhage. Report Dictated on Final Dictated: 03/02/2022 1:35 pm Dictating Physician: MD GUTIERREZ WILLIAM Signed Date and Time: 03/02/2022 1:39 pm Signed by: MD GUTIERREZ WILLIAM Transcribed Date and Time: 03/02/2022 1:35 Normal [facility] Comp Metabolic Panelon 03-02 Calcium [Mass/Vol] 9.1 mg/dL Normal 8.4-10.4 [facility] Comment on above: Performed By: #### H EMDF, PT, CMP3 ####[facility] [place] [address] ALP [Catalytic activity/Vol] 128 U/L High 38-126 [facility] Comment on above: Performed By: #### H EMDF, PT, CMP3 ####[facility] [id number] [place] [address] ALT [Catalytic activity/Vol] 12 U/L Normal 0-49 [facility] Comment on above: Result Comment: The ALT test is performed by an updated assay method. Please note that the reference intervals have been changed and are now sex specific. Performed By: #### H CHRISTEL MOTT CMP3 ####[id number] [place], [place] Anion gap [Moles/Vol] 7 mmol/L Normal 3-13 [facility] Comment on above: Performed By: #### H CHRISTEL MOTT CMP3 ####[address] [address] [place], [place] AST [Catalytic activity/Vol] 24 U/L Normal 15-46 [facility] Comment on above: Performed By: #### H CHRISTEL MOTT CMP3 ####[address] Bilirubin [Mass/Vol] 0.4 mg/dL Normal 0.2-1.3 [facility] Comment on above: Performed By: #### H CHRISTEL MOTT CMP3 ####[address] CO2 [Moles/Vol] 27 mmol/L Normal 22-30 [facility] Comment on above: Performed By: #### H CHRISTEL MOTT CMP3 ####[address] Glucose [Mass/Vol] 109 mg/dL High 70-100 [facility] Comment on above: Performed By: #### H CHRISTEL MOTT CMP3 ####[address] [address] [place], [place] Protein [Mass/Vol] 8.1 g/dL Normal 6.3-8.2 [facility] Comment on above: Performed By: #### H CHRISTEL MOTT CMP3 ####[address] Urea nitrogen [Mass/Vol] 22 mg/dL High 7-17 [facility] Comment on above: Performed By: #### H CHRISTEL MOTT CMP3 ####[address] Creatinine [Mass/Vol] 0.63 mg/dL Normal 0.52-1.25 [facility] Comment on above: Performed By: #### H CHRISTEL MOTT CMP3 ####[facility] [place], [place] eGFR OTHER > 90.0 Normal >60 [facility] Comment on above: Result Comment: KDIG O [...] Performed By: #### H CHRISTEL MOTT CMP3 ####[facility] [employer] [place] [address] [place], [place] GFR/1.73 sq M.predicted among blacks MDRD (S/P/Bld) [Vol rate/Area] mL/min/{1.73_m2} Normal >60 [facility] Comment on above: Performed By: #### H CHRISTEL MOTT CMP3 ####[facility] [employer] [id number] [place], [place] Albumin [Mass/Vol] 4.1 g/dL Normal 3.5-5.0 [facility] Comment on above: Performed By: #### H CHRISTEL MOTT CMP3 ####[address] [place], [place] Chloride [Moles/Vol] 106 mmol/L Normal 98-107 [facility] Comment on above: Performed By: #### H CHRISTEL MOTT CMP3 ####[facility] [place] [address] Potassium [Moles/Vol] 3.7 mmol/L Normal 3.5-5.1 [facility] Comment on above: Performed By: #### H BIMALF, PT, CMP3 ####[facility] [place] [address] Sodium [Moles/Vol] 140 mmol/L Normal 135-145 [facility] Comment on above: Performed By: #### H BIMALF, PT, CMP3 ####[facility] [place] [address] Comprehensive Metabolic Pane kiel 03-02-2022 Albumin [Mass/Vol] 4.1 g/dL 3.5 - 5.0 g/dL [facility] ALP (Bld) [Catalytic activity/Vol] 128 U/L High 38 - 126 U/L [facility] ALT [Catalytic activity/Vol] 12 U/L 0 - 49 U/L [facility] Comment on above: The ALT test [...] P INF mL/min [facility] EGFR IF NonAfrican Burkinan mL/min 60 - PINF mL/min [facility] Comment on above: KDIGO guidelines pro [...] - 17 mg/dL [facility] Test Performed by [id number] [place] [address] LAB [facility] ED Provider Noteon 2 ED Provider Note [facility] EM[facility]GENCY DEPT EMERGENCY DEPARTMENT ENCOUNTER Pt Name: Andrew Sifuentes Birthdate 1950 Date of evaluation: 03/02/2022 Provider: Lanette Munguia DO CHIEF COMPLAINT Chief Complaint Patient presents with Fall Patient had unwitnessed fall at [facility] landed on butt. Is on thinners, denies LOC, denies head injury has no complaints at this time HISTORY OF PRESENT ILLNESS (Location/Symptom, Timing/Onset, Context/Setting, Quality, Duration, Modifying Factors, Severity) Note limiting factors. I wore a N-95 mask for the entirety of this encounter. Andrew Sifuentes is a 71 y.o. male medical history of hydrocephalus status post [employer] shunt, history of DVT on Coumadin who presents to the emergency department [facility] for evaluation following mechanical fall. Patient rolled out of bed. Unwitnessed. Found down on ground by nursing staff. Nonambulatory at baseline. Patient reports he did not hit his head. Has no acute complaints. Denies any pain or traumatic injury. 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 Normal [facility] Hemogram w/ Autodiffon 03-02 Abs Baso Cnt 0.2 10*3/uL Normal 0.0-0.2 [facility] Comment on above: Performed By: #### H EMDF, PT, CMP3 ####[facility] [employer] [place] [address] Abs Neutrophile Cnt 10.7 10*3/uL High 1.8-7.0 [facility] Comment on above: Performed By: #### H EMDF PT, CMP3 ####[address] [place] [address] Basophils/100 WBC (Bld) 1.1 % Normal 0.0-2.0 [facility] Comment on above: Performed By: #### H EMDF PT, CMP3 ####[address] [address] Eosinophils (Bld) [#/Vol] 0.1 10*3/uL Normal 0.0-0.5 [facility] Comment on above: Performed By: #### H EMDF PT, CMP3 ####[address] [address] Eosinophils/100 WBC (Bld) 0.5 % Low 1.0-6.0 [facility] Comment on above: Performed By: #### H EMDF PT, CMP3 ####[address] [address] Granulocytes/100 WBC (Bld) 73.9 % Normal 40.0-80.0 [facility] Comment on above: Performed By: #### H EMDF PT, CMP3 ####[address] [address] Lymphocytes (Bld) [#/Vol] 3.0 10*3/uL Normal 1.0-4.3 [facility] Comment on above: Performed By: #### H EMDF PT, CMP3 ####[address] [address] Lymphocytes/100 WBC (Bld) 20.6 % Normal 20.0-40.0 [facility] Comment on above: Performed By: #### H EMDF PT, CMP3 ####[address] [address] Monocytes (Bld) [#/Vol] 0.6 10*3/uL Normal 0.0-0.8 [facility] Comment on above: Performed By: #### H EMDF, PT, CMP3 ####[address] [address] [place], [place] Monocytes/100 WBC (Bld) 3.9 % Normal 2.0-10.0 [facility] Comment on above: Performed By: #### H EMDHeydi PT, CMP3 ####[id number] [place], [place] Platelet mean volume (Bld) [Entitic vol] 8.5 fL Normal 7.4-12.4 [facility] Comment on above: Result Comment: MPV is a calculated measurement using platelet volume ratio. Performed By: #### H EMDF PT, CMP3 ####[address] [place], [place] Platelets (Bld) [#/Vol] 411 10*3/uL Normal 140-440 [facility] Comment on above: Performed By: #### H EMDHeydi PT, CMP3 ####[address] Erythrocyte distribution width (RBC) [Ratio] 17.0 % High 11.5-14.5 [facility] Comment on above: Performed By: #### H EMDHeydi PT, CMP3 ####[address] Hematocrit (Bld) [Volume fraction] 37.4 % Low 40.0-52.0 [facility] Comment on above: Performed By: #### H EMDF PT, CMP3 ####[address] Hemoglobin (Bld) [Mass/Vol] 12.1 g/dL Low 13.0-18.0 [facility] Comment on above: Performed By: #### H EMDF PT, CMP3 ####[address] MCH (RBC) [Entitic mass] 26.2 pg Normal 26.0-34.0 [facility] Comment on above: Performed By: #### H EMDF PT, CMP3 ####[address] MCHC 32.3 % Normal 32.0-36.0 [facility] Comment on above: Performed By: #### H EMDF, PT, CMP3 ####[address] [place], [place] MCV (RBC) [Entitic vol] 81.1 fL Normal 80.0-98.0 [facility] Comment on above: Performed By: #### H EMDF, PT, CMP3 ####[address] [place], [place] RBC (Bld) [#/Vol] 4.61 10*6/uL Normal 4.40-5.90 [facility] Comment on above: Performed By: #### H EMDF, PT, CMP3 ####[address] WBC (Bld) [#/Vol] 14.5 10*3/uL High 3.6-10.7 [facility] Comment on above: Performed By: #### H EMDF, PT, CMP3 ####[address] Prothrombin Timeon 2 INR 1.9 High 0.9-1.1 [facility] Comment on above: Result Comment: Harry mmended [...] Performed By: #### H EMDF, PT, CMP3 ####[id number] [place], [place] PT Coag (PPP) [Time] 18.9 s High 9.0-12.0 [facility] Comment on above: Result Comment: . Performed By: #### H EMDF, PT, CMP3 ####[address] [place] [address] Protime-INRon 03-02-2022 INR Coag (Bld) [Relative time] 1.9 {INR} High [facility] Comment on above: Recommended Anticoag ulant [...] Interpretation and review of laboratory results Abnormal [facility] PT Coag (PPP) [Time] 18.9 s High 9.0 - 12.0 s [facility] Comment on above: . Test Performed by [facility], [address] [place] [address] [facility] Laboratory - CoagulationOrde red By: Carlos Cavazos on 02-20-2022 INR Coag (Bld) [Relative time] 2.6 {INR} [facility] Comment on above: Critical Value > 4.0 Whole blood prothrombin time Ordered By: Carlos Cavazos on 02-20-2022 PT Coag (Bld) [Time] 30.1 s 11.7-14.[address] [facility] Laboratory - CoagulationOrde red By: Carlos Cavazos on 02-13-2022 INR Coag (Bld) [Relative time] 2.3 {INR} [facility] Comment on above: Critical Value > 4.0 Whole blood prothrombin time Ordered By: Carlos Cavazos on 02-13-2022 PT Coag (Bld) [Time] 26.7 s 11.7-14.[address] [facility] Laboratory - CoagulationOrde red By: Carlos Cavazos on 02-06-2022 INR Coag (Bld) [Relative time] 2.3 {INR} [facility] Comment on above: Critical Value > 4.0 Whole blood prothrombin time Ordered By: Carlos Cavazos on 02-06-2022 PT Coag (Bld) [Time] 26.6 s 11.7-14.[address] [facility] Laboratory - Coagulationon 0 01-30-2022 INR Coag (Bld) [Relative time] 1.7 {INR} [facility] Work Phone: Comment on above: Critical Value > 4.0 Whole blood prothrombin time on 01-30-2022 PT Coag (Bld) [Time] 20.1 s 11.7-14.[address] [facility] Work Phone: Laboratory - Coagulationon 0 01-26-2022 INR Coag (Bld) [Relative time] 1.8 {INR} [facility] Work Phone: Comment on above: Critical Value > 4.0 Whole blood prothrombin time on 01-26-2022 PT Coag (Bld) [Time] 21.8 s 11.7-14.[address] [facility] Work Phone: Laboratory - Coagulationon 0 01-19-2022 INR Coag (Bld) [Relative time] 2.2 {INR} [facility] Work Phone: Comment on above: Critical Value > 4.0 Whole blood prothrombin time on 01-19-2022 PT Coag (Bld) [Time] 25.7 s 11.7-14.[address] [facility] Work Phone: INR in Blood by Coagulation assayon 01-10-2022 INR Coag (Bld) [Relative time] 1.8 {INR} [facility] Work Phone: Laboratory - Coagulationon 0 01-10-2022 PT Coag (PPP) [Time] 20.9 s 11.7-14.[address] [facility] Work Phone: Basophil percentageon 2021 Chloride [Moles/Vol] 107 mmol/L 98-[address] [facility] Work Phone: Glucose [Mass/Vol] 82 mg/dL 74-106 [facility] Work Phone: Potassium [Moles/Vol] 3.4 mmol/L 3.5-5.1 [facility] Work Phone: Sodium [Moles/Vol] 143 mmol/L 136-145 [facility] Work Phone: WBC (Bld) [#/Vol] 10.4 10*3/uL 4.4-11.0 [facility] Work Phone: Blood erythrocytes count (nu mber/volume)on 01-05-2022 RBC (Bld) [#/Vol] 4.27 10*6/uL 4.6-6.2 [facility] Work Phone: Blood hemoglobin measurement (mass/volume)on 01-05-2022 Hemoglobin (Bld) [Mass/Vol] 11.2 g/dL 13.0-16.5 [facility] Work Phone: Blood platelet mean volumeon 01-05-2022 Platelet mean volume (Bld) [Entitic vol] 10.3 fL 6.2-12.0 [facility] Work Phone: Determination of erythrocyte mean corpuscular volume (MCV)on 01-05-2022 MCV (RBC) [Entitic vol] 84.8 fL 80-94 [facility] Work Phone: Hematocrit Auto (Bld) [Volum e fraction]on 01-05-2022 Hematocrit (Bld) [Volume fraction] 36.2 % 40-54 [facility] Work Phone: Laboratory - Chemistry and C hemistry - challengeon 01-05-2022 CO2 [Moles/Vol] 28.0 mmol/L 21.0-32.0 [facility] Work Phone: Urea nitrogen/Creatinine [Mass ratio] 20.0 mg/mg 10-20 [facility] Work Phone: Laboratory - Hematology and Cell countson 01-05-2022 Erythrocyte distribution width (RBC) [Entitic vol] 51.8 fL 35.1-43.9 [facility] Work Phone: Erythrocyte distribution width (RBC) [Ratio] 16.8 % 11.6-14.6 [facility] Work Phone: MCH (RBC) [Entitic mass] 26.2 pg 27.0-32.0 [facility] Work Phone: MCHC Auto (RBC) [Mass/Vol]on 01-05-2022 MCHC (RBC) [Mass/Vol] 30.9 g/dL 32-36 [facility] Work Phone: No Panel Informationon 01-05 Estimated GFR (MDRD) Amer 133 mL/min >60 [facility] Work Phone: Comment on above: GFR Calc Estimated GFR (MDRD) Non-Af Amer 110 mL/min >60 [facility] Work Phone: Comment on above: Non- GFR Calc Platelets bldon 01-05-2022 Platelets (Bld) [#/Vol] 373 10*3/uL 150-450 [facility] Work Phone: Serum or plasma calcium oral urement (mass/volume)on 01-05-2022 Calcium [Mass/Vol] 8.8 mg/dL 8.5-10.1 [facility] Work Phone: Serum or plasma creatinine m easurement (mass/volume)on 01-05-2022 Creatinine [Mass/Vol] 0.75 mg/dL 0.70-1.30 [facility] Work Phone: Comment on above: The validity of the calculated GFR & GFRAA in patients over 70 years has not been determined. Clinical correlation is essential. Serum or plasma urea nitroge n measurement (mass/volume)on 01-05-2022 Urea nitrogen [Mass/Vol] 15 mg/dL 7-18 [facility] Work Phone: Thin prep Papanicolaou smear with manual screeningon 01-05-2022 Thin prep Papanicolaou smear with manual screening 8 5-15 [facility] Work Phone: Laboratory - Coagulationon 0 12-30-2021 INR Coag (Bld) [Relative time] 2.0 {INR} [facility] Work Phone: Comment on above: Critical Value > 4.0 Whole blood prothrombin time on 12-30-2021 PT Coag (Bld) [Time] 23.7 s 11.7-14.[address] [facility] Work Phone: Basophil percentageon 2021 Chloride [Moles/Vol] 106 mmol/L 98-[address] [facility] Work Phone: Glucose [Mass/Vol] 91 mg/dL 74-106 [facility] Work Phone: [phone] Potassium [Moles/Vol] 3.4 mmol/L 3.5-5.1 [facility] Work Phone: Sodium [Moles/Vol] 141 mmol/L 136-145 [facility] Work Phone: WBC (Bld) [#/Vol] 10.2 10*3/uL 4.4-11.0 [facility] Work Phone: Blood erythrocytes count (nu mber/volume)on 12-28-2021 RBC (Bld) [#/Vol] 4.22 10*6/uL 4.6-6.2 [facility] Work Phone: Blood hemoglobin measurement (mass/volume)on 12-28-2021 Hemoglobin (Bld) [Mass/Vol] 11.2 g/dL 13.0-16.5 [facility] Work Phone: Blood platelet mean volumeon 12-28-2021 Platelet mean volume (Bld) [Entitic vol] 10.1 fL 6.2-12.0 [facility] Work Phone: Determination of erythrocyte mean corpuscular volume (MCV)on 12-28-2021 MCV (RBC) [Entitic vol] 82.7 fL 80-94 [facility] Work Phone: Hematocrit Auto (Bld) [Volum e fraction]on 12-28-2021 Hematocrit (Bld) [Volume fraction] 34.9 % 40-54 [facility] Work Phone: Laboratory - Chemistry and C hemistry - challengeon 12-28-2021 CO2 [Moles/Vol] 30.0 mmol/L 21.0-32.0 [facility] Work Phone: Urea nitrogen/Creatinine [Mass ratio] 33.7 mg/mg 10-20 [facility] Work Phone: Laboratory - Hematology and Cell countson 12-28-2021 Erythrocyte distribution width (RBC) [Entitic vol] 49.1 fL 35.1-43.9 [facility] Work Phone: Erythrocyte distribution width (RBC) [Ratio] 16.5 % 11.6-14.6 [facility] Work Phone: MCH (RBC) [Entitic mass] 26.5 pg 27.0-32.0 [facility] Work Phone: MCHC Auto (RBC) [Mass/Vol]on 12-28-2021 MCHC (RBC) [Mass/Vol] 32.1 g/dL 32-36 [facility] Work Phone: No Panel Informationon 12-28 Estimated GFR (MDRD) Amer 174 mL/min >60 [facility] Work Phone: Comment on above: GFR Calc Estimated GFR (MDRD) Non-Af Amer 143 mL/min >60 [facility] Work Phone: Comment on above: Non- GFR Calc Platelets bldon 12-28-2021 Platelets (Bld) [#/Vol] 339 10*3/uL 150-450 [facility] Work Phone: Serum or plasma calcium oral urement (mass/volume)on 12-28-2021 Calcium [Mass/Vol] 8.6 mg/dL 8.5-10.1 [facility] Work Phone: Serum or plasma creatinine m easurement (mass/volume)on 12-28-2021 Creatinine [Mass/Vol] 0.59 mg/dL 0.70-1.30 [facility] Work Phone: Comment on above: The validity of the calculated GFR & GFRAA in patients over 70 years has not been determined. Clinical correlation is essential. Serum or plasma urea nitroge n measurement (mass/volume)on 12-28-2021 Urea nitrogen [Mass/Vol] 20 mg/dL 7-18 [facility] Work Phone: Thin prep Papanicolaou smear with manual screeningon 12-28-2021 Thin prep Papanicolaou smear with manual screening 5 5-15 [facility] Work Phone: CULTURE BLOODon 12-27-2021 Microscopic examination of blood, culture CULTURE BLOOD --> Status: F No growth at 5 days. Normal [facility] Comment on above: Performed By: #### C /BLD #### [facility] [employer] [address] [place], [place] Laboratory - Coagulationon 0 12-26-2021 INR Coag (Bld) [Relative time] 1.7 {INR} [facility] Work Phone: Comment on above: Critical Value > 4.0 Whole blood prothrombin time on 12-26-2021 PT Coag (Bld) [Time] 20.8 s 11.7-14.[address] [facility] Work Phone: Basic Metabolic Panelon 12-05 Calcium [Mass/Vol] 8.8 mg/dL Normal 8.4-10.4 [facility] Comment on above: Performed By: #### C RP2, ESR, HEMDF, BMP3 ####[employer] [id number] [employer] [place], [place] Anion gap [Moles/Vol] 6 mmol/L Normal 3-13 [facility] Comment on above: Performed By: #### C RP2, ESR, HEMDF, BMP3 ####[employer] [address] [employer] [place], [place] CO2 [Moles/Vol] 27 mmol/L Normal 22-30 [facility] Comment on above: Performed By: #### C RP2, ESR, HEMDF, BMP3 ####[employer] [address] [employer] [address] [place], [place] Glucose [Mass/Vol] 100 mg/dL Normal 70-100 [facility] Comment on above: Performed By: #### C RP2, ESR, HEMDF, BMP3 ####[facility] [employer] [id number] [place], [place] Urea nitrogen [Mass/Vol] 18 mg/dL High 7-17 [facility] Comment on above: Performed By: #### C RP2, ESR, HEMDF, BMP3 ####[id number] [place], [place] Creatinine [Mass/Vol] 0.73 mg/dL Normal 0.52-1.25 [facility] Comment on above: Performed By: #### C RP2, ESR, HEMDF, BMP3 ####[id number] [place], [place] eGFR OTHER > 90.0 Normal >60 [facility] Comment on above: Result Comment: KDIG O [...] By: #### C RP2, ESR, HEMDF, BMP3 ####[facility] [employer] [id number] [place], [place] GFR/1.73 sq M.predicted among blacks MDRD (S/P/Bld) [Vol rate/Area] mL/min/{1.73_m2} Normal >60 [facility] Comment on above: Performed By: #### C RP2, ESR, HEMDF, BMP3 ####[facility] [employer] [id number] [place] [address] Potassium [Moles/Vol] 3.7 mmol/L Normal 3.5-5.1 [facility] Comment on above: Performed By: #### C RP2, ESR, HEMDF, BMP3 ####[facility] [place] [address] Chloride [Moles/Vol] 106 mmol/L Normal 98-107 [facility] Comment on above: Performed By: #### C RP2, ESR, HEMDF, BMP3 ####[facility] [id number] [place] [address] Sodium [Moles/Vol] 139 mmol/L Normal 135-145 [facility] Comment on above: Performed By: #### C RP2, ESR, HEMDF, BMP3 ####[facility] [place] [address] Anion gap [Moles/Vol] 6 mmol/L 3 - 13 mmol/L [facility] Calcium [Mass/Vol] 8.8 mg/dL 8.4 - 10. 4 mg/dL [facility] Chloride [Moles/Vol] 106 mmol/L 98 - 10 7 mmol/L [facility] CO2 [Moles/Vol] 27 mmol/L 22 - 30 mmol/L [facility] Creatinine [Mass/Vol] 0.73 mg/dL 0.52 - 1.25 mg/dL [facility] eGFR mL/min 60 - P INF mL/min [facility] EGFR IF NonAfrican Burkinan mL/min 60 - PINF mL/min [facility] Comment on above: KDIGO guidelines pro [...] 2021 Basophil percentage 25-50 SEEN /hpf 0-5 [facility] Work Phone: Chloride [Moles/Vol] 106 mmol/L 98-[address] [facility] Work Phone: Glucose [Mass/Vol] 93 mg/dL 74-106 [facility] Work Phone: Potassium [Moles/Vol] 3.5 mmol/L 3.5-5.1 [facility] Work Phone: [phone] Sodium [Moles/Vol] 140 mmol/L 136-145 [facility] Work Phone: [phone] WBC (Bld) [#/Vol] 9.6 10*3/uL 4.4-11.0 [facility] Work Phone: Bilirubin Test strip Ql (U)o n 12-22-2021 Bilirubin Ql (U) Negative Negative [facility] Work Phone: Blood erythrocytes count (nu mber/volume)on 12-22-2021 RBC (Bld) [#/Vol] 4.34 10*6/uL 4.6-6.2 [facility] Work Phone: Blood hemoglobin measurement (mass/volume)on 12-22-2021 Hemoglobin (Bld) [Mass/Vol] 11.5 g/dL 13.0-16.5 [facility] Work Phone: Blood platelet mean volumeon 12-22-2021 Platelet mean volume (Bld) [Entitic vol] 10.8 fL 6.2-12.0 [facility] Work Phone: C-Reactive Proteinon 022 CRP [Mass/Vol] 27.2 mg/L High 0.0-9.[address] [facility] [employer] Comment on above: Result Comment: . Performed By: #### C RP2, ESR, HEMDF, BMP3 ####[address] [place] [address] CRP [Mass/Vol] 27.2 mg/L High 0 - 9.9 mg/L [facility] Comment on above: . CBC with [...] - 10.7 10*3/uL [facility] Test Performed by [address] [facility] COVID-19, Flu A/B, and RSV C omboon 12-22-2021 Influenza A by PCR Not detected [facility] A Influenza B by PCR Not detected [facility] A RSV PCR Not Detected. Expected Result: Not Detected _ Method: Real-time, RT-PCR This assay was developed by [employer] and distributed under an Emergency Use Authorization (EUA) granted by the FDA for the qualitative detection of nucleic acids from SARS-CoV-2, Influenza A, Influenza B, and Respiratory Syncytial Virus. Provider and patient fact sheets can be found at https://www.fda.gov/media /886614/download and https://www.fda.gov/media /053480/download. [facility] SARS-CoV-2 (COVID-19) RNA [place]+probe Ql (Unsp spec) Not detected [facility] Test Performed by [address] [facility] CR Foot Complete 3+ Views Le fton 12-22-2021 CR Foot Complete 3+ Views Left Patient Name: ANDREW SIFUENTES Diagnostic Radiology ACCESSION EXAM DATE/TIME PROCEDURE ORDERING PROVIDER [id number] 12/22/2021 00:09 EDT CR Foot Complete 3+ SANDY HIDALGO JOHN M Views Left CPT code 31346 Reason For Exam (CR Foot Complete 3+ [...] Transcribed Date and Time: 12/22/2021 0:21 Normal [facility] Calcium oxalate crystals det ection in urine sediment by light microscopyon 12-22-2021 Calcium oxalate crystals LM Ql (Urine sed) 1+ /hpf [facility] Work Phone: Determination of erythrocyte mean corpuscular volume (MCV)on 12-22-2021 MCV (RBC) [Entitic vol] 84.3 fL 80-94 [facility] Work Phone: ED Provider Noteon 2 ED [...] leg for a while. According to EMS shelter staff completed x-ray of the lower extremity and there was concern for osteomyelitis hence transferring patient to the hospital. Patient states this time the wounds on the left lower extremity for extended period of time. He denies fevers or chills. Patient states shelter staff have been taking care of the wound for him. Focused exam: Blood pressure 108/67, pulse 77, temperature 97.9 ?F (36.6 ?C), temperature source Oral, resp. rate 16, height 5' 9" (1.753 m), weight 79.4 kg (175 lb), SpO2 96 %. [id number] in no acute distress. Alert and oriented [...] [employer] Sharon Olivia MD 12/22/21 0305 [facility] ED Provider Note [facility] EMERGENCY DEPT EMERGENCY DEPARTMENT ENCOUNTER Pt Name: Andrew Sifuentes Birthdate 1950 Date of evaluation: 12/21/2021 Provider: SANIA Lou CHIEF COMPLAINT Chief Complaint Patient presents with [facility]omyelitis [facility] [place] did xrays on left lower leg and and have concerns for possible osteomyelitis A&Ox2 to self and place, stated year 2022 preside Miss martini HISTORY OF PRESENT ILLNESS (Location/Symptom, Timing/Onset, Context/Setting, Quality,Duration, Modifying Factors, Severity) Note limiting factors. HPI I have seen this patient With supervising physician Does this patient come from an ECF, SNF, Rehab, Chcf or other Congregate setting: no (If yes [...] Hemorrhoids Hydrocephalus, adult (HCC) Kidney stone Neuropathy [employer] (ventriculoperitoneal) shunt status SURGICAL HISTORY Past Surgical [...] Response: Confused Best Motor Response: Obeys commands [place] Coma Scale Score: 14 Patient symptoms are [...] soft. Tenderness: (more content not included)... Normal [facility] Hematocrit Auto (Bld) [Volum e fraction]on 12-22-2021 Hematocrit (Bld) [Volume fraction] 36.6 % 40-54 [facility] Work Phone: Hemogram w/ Autodiffon 12-22 Abs Baso Cnt 0.1 10*3/uL Normal 0.0-0.2 [facility] Comment on above: Performed By: #### C RP2, ESR, HEMDF, BMP3 ####[address] [place] [address] Abs Neutrophile Cnt 5.9 10*3/uL Normal 1.8-7.0 [facility] Comment on above: Performed By: #### C RP2, ESR, HEMDF, BMP3 ####[address] Basophils/100 WBC (Bld) 0.7 % Normal 0.0-2.0 [facility] Comment on above: Performed By: #### C RP2, ESR, HEMDF, BMP3 ####[address] Eosinophils (Bld) [#/Vol] 0.2 10*3/uL Normal 0.0-0.5 [facility] Comment on above: Performed By: #### C RP2, ESR, HEMDF, BMP3 ####[address] [place] [address] Eosinophils/100 WBC (Bld) 2.3 % Normal 1.0-6.0 [facility] Comment on above: Performed By: #### C RP2, ESR, HEMDF, BMP3 ####[address] [address] Erythrocyte distribution width (RBC) [Ratio] 17.5 % High 11.5-14.5 [facility] Comment on above: Performed By: #### C RP2, ESR, HEMDF, BMP3 ####[address] [address] Granulocytes/100 WBC (Bld) 57.8 % Normal 40.0-80.0 [facility] Comment on above: Performed By: #### C RP2, ESR, HEMDF, BMP3 ####[address] Hematocrit (Bld) [Volume fraction] 33.3 % Low 40.0-52.0 [facility] Comment on above: Performed By: #### C RP2, ESR, HEMDF, BMP3 ####[address] Hemoglobin (Bld) [Mass/Vol] 11.0 g/dL Low 13.0-18.0 [facility] Comment on above: Performed By: #### C RP2, ESR, HEMDF, BMP3 ####[address] Lymphocytes (Bld) [#/Vol] 3.3 10*3/uL Normal 1.0-4.3 [facility] Comment on above: Performed By: #### C RP2, ESR, HEMDF, BMP3 ####[address] Lymphocytes/100 WBC (Bld) 33.0 % Normal 20.0-40.0 [facility] Comment on above: Performed By: #### C RP2, ESR, HEMDF, BMP3 ####[address] MCH (RBC) [Entitic mass] 26.5 pg Normal 26.0-34.0 [facility] Comment on above: Performed By: #### C RP2, ESR, HEMDF, BMP3 ####[address] MCHC 33.1 % Normal 32.0-36.0 [facility] Comment on above: Performed By: #### C RP2, ESR, HEMDF, BMP3 ####[address] MCV (RBC) [Entitic vol] 80.2 fL Normal 80.0-98.0 [facility] Comment on above: Performed By: #### C RP2, ESR, HEMDF, BMP3 ####[id number] [place], [place] Monocytes (Bld) [#/Vol] 0.6 10*3/uL Normal 0.0-0.8 [facility] Comment on above: Performed By: #### C RP2, ESR, HEMDF, BMP3 ####[address] [place], [place] Monocytes/100 WBC (Bld) 6.2 % Normal 2.0-10.0 [facility] Comment on above: Performed By: #### C RP2, ESR, HEMDF, BMP3 ####[address] [place], [place] Platelet mean volume (Bld) [Entitic vol] 8.0 fL Normal 7.4-12.4 [facility] Comment on above: Result Comment: MPV is a calculated measurement using platelet volume ratio. Performed By: #### C RP2, ESR, HEMDF, BMP3 ####[facility] [employer] [id number] [place], [place] Platelets (Bld) [#/Vol] 368 10*3/uL Normal 140-440 [facility] Comment on above: Performed By: #### C RP2, ESR, HEMDF, BMP3 ####[facility] [employer] [id number] [place], [place] RBC (Bld) [#/Vol] 4.15 10*6/uL Low 4.40-5.90 [facility] Comment on above: Performed By: #### C RP2, ESR, HEMDF, BMP3 ####[facility] [employer] [id number] [place], [place] WBC (Bld) [#/Vol] 10.1 10*3/uL Normal 3.6-10.7 [facility] Comment on above: Performed By: #### C RP2, ESR, HEMDF, BMP3 ####[id number] [place], [place] Ketones Test strip Ql (U)on 12-22-2021 Ketones Ql (U) Negative Negative [facility] [place] [place] Work Phone: Laboratory - Chemistry and C hemistry - challengeon 12-22-2021 CO2 [Moles/Vol] 27.0 mmol/L 21.0-32.0 [facility] Work Phone: Urea nitrogen/Creatinine [Mass ratio] 22.5 mg/mg 10-20 [facility] Work Phone: Laboratory - Hematology and Cell countson 12-22-2021 Erythrocyte distribution width (RBC) [Entitic vol] 49.1 fL 35.1-43.9 [facility] Work Phone: Erythrocyte distribution width (RBC) [Ratio] 16.1 % 11.6-14.6 [facility] Work Phone: MCH (RBC) [Entitic mass] 26.5 pg 27.0-32.0 [facility] Work Phone: MCHC Auto (RBC) [Mass/Vol]on 12-22-2021 MCHC (RBC) [Mass/Vol] 31.4 g/dL 32-36 [facility] Work Phone: Mucus LM Ql (Urine sed)on Mucus Ql (Urine sed) 0 SEEN /hpf [facility] Work Phone: Nitrite Test strip Ql (U)on 12-22-2021 Nitrite Ql (U) Positive Negative [facility] Work Phone: No Panel Informationon 12-22 Estimated GFR (MDRD) Amer 152 mL/min >60 [facility] Work Phone: Comment on above: GFR Calc Estimated GFR (MDRD) Non-Af Amer 125 mL/min >60 [facility] Work Phone: Comment on above: Non- GFR Calc Interpretation and review of laboratory results Abnormal [facility] Test Performed by [facility], [address] [place] [id number] [facility] Platelets bldon 12-22-2021 Platelets (Bld) [#/Vol] 317 10*3/uL 150-450 [facility] Work Phone: Protein Test strip Ql (U)on 12-22-2021 Protein Ql (U) 30 mg/dl Negative [facility] Work Phone: SARS-CoV-2, Flu A/B and RSVo n 12-22-2021 SARS-CoV-2 (COVID-19) RNA MEGAN+probe Ql (Unsp spec) SARS-CoV-2 --> Status: F Not Detected. Flu A PCR --> Status: F Not Detected. Flu B PCR --> Status: F Not Detected. RSV PCR --> Status: F Not Detected. Expected Result: Not Detected _ Method: Real-time, RT-PCR This assay was developed by [employer] and distributed under an Emergency Use Authorization (EUA) granted by the FDA for the qualitative detection of nucleic acids from SARS-CoV-2, Influenza A, Influenza B, and Respiratory Syncytial Virus. Provider and patient fact sheets can be found at https://www.fda.gov/media /812574/download and https://www.fda.gov/media /846165/download. Expected Result: Not Detected _ Method: Real-time, RT-PCR This assay was developed by [employer] and distributed under an Emergency Use Authorization (EUA) granted by the FDA for the qualitative detection of nucleic acids from SARS-CoV-2, Influenza A, Influenza B, and Respiratory Syncytial Virus. Provider and patient fact sheets can be found at https://www.fda.gov/media /693049/download and https://www.fda.gov/media /404412/download. Normal [facility] Comment on above: Performed By: #### C VFLR ####[facility] [address] [place] [address], [address] Sed Rateon 12-22-2021 Sed Rate 48 mm/h High 0-10 [facility] Comment on above: Performed By: #### C RP2, ESR, HEMDF, BMP3 ####[facility] [address] [place] [address] Sedimentation Rateon 022 Interpretation and review of laboratory results Abnormal [facility] Sed Rate 48 mm/h High 0 - 10 mm/h [facility] Test Performed by [facility], [address] [place] [id number] [place] [address] LAB [facility] Serum or plasma calcium oral urement (mass/volume)on 12-22-2021 Calcium [Mass/Vol] 8.6 mg/dL 8.5-10.1 [facility] Work Phone: Serum or plasma creatinine m easurement (mass/volume)on 12-22-2021 Creatinine [Mass/Vol] 0.67 mg/dL 0.70-1.30 [facility] ster [facility] [place] [place] Work Phone: Comment on above: The validity of the calculated GFR & GFRAA in patients over 70 years has not been determined. Clinical correlation is essential. Serum or plasma urea nitroge n measurement (mass/volume)on 12-22-2021 Urea nitrogen [Mass/Vol] 15 mg/dL - [facility] Work Phone: Squamous epithelial cells de tection in urine sediment by light microscopyon 12-22-2021 Epithelial cells.squamous LM Ql (Urine sed) 0-5 SEEN /hpf 0-5 [facility] Work Phone: Thin prep Papanicolaou smear with manual screeningon 12-22-2021 Thin prep Papanicolaou smear with manual screening 7 5-15 [facility] Work Phone: Urine blood detectionon 12-05 RBC Ql (U) 150 /ul Negative [facility] Work Phone: RBC Ql (U) 10-25 SEEN /hpf 0-5 [facility] Work Phone: Urine clarityon 12-22-2021 Clarity (U) Sl. Cloudy Clear [facility] Work Phone: Urine color determinationon 12-22-2021 Color (U) Yellow Yellow [facility] Work Phone: Urine glucose detectionon Glucose Ql (U) Normal mg/dl Normal [facility] Work Phone: Urine leukocyte esterase det ection by dipstickon 12-22-2021 Leukocyte esterase Test strip Ql (U) 500 /ul Negative [facility] Work Phone: Urine pHon 12-22-2021 pH (U) 6.0 [pH] 5.0 - 8.0 [facility] Work Phone: Urine sediment bacteria coun t by microscopy (number/high power field)on 12-22-2021 Bacteria LM.HPF (Urine sed) [#/Area] 2 /[HPF] None Seen [facility] Work Phone: Urine specific gravity measu rementon 12-22-2021 Specific gravity (U) [Rel density] 1.020 1.002-1.030 [facility] Work Phone: Urobilinogen Auto test strip Ql (U)on 12-22-2021 Urobilinogen Ql (U) Normal mg/dl Normal [facility] Work Phone: XR FOOT LEFT (MIN 3 VIEWS)on 12-22-2021 Patient Name: ANDREW SIFUENTES Diagnostic Radiology ACCESSION EXAM DATE/TIME PROCEDURE ORDERING PROVIDER [id number] 12/22/2021 00:09 EDT CR Foot Complete 3+ SANDY HIDALGO, JOAN Views Left CPT code 36483 Reason For Exam (CR Foot Complete 3+ [...] JEFFREY Transcribed Date and Time: 12/22/2021 0:21 [facility] RAD Albert Solano MD - 12/22/2021 [facility] Name[id number] Radiology ACCESSION EXAM DATE/TIME PROCEDURE ORDERING PROVIDER [id number] 12/22/2021 00:09 EDT CR Foot Complete 3+ SANDY HIDALGO, JOAN Views Left CPT code 75957 Reason For Exam (CR Foot Complete 3+ [...] JEFFREY Transcribed Date and Time: 12/22/2021 0:21 [facility] Work Phone: Radiology Study observation (narrative) [facility] Work Phone: XR FOOT LEFT (MIN 3 VIEWS)Or dered By: Albert Solano on 12-22-2021 [facility] Work Phone: Basophil percentageon 2021 Chloride [Moles/Vol] 103 mmol/L 98-[address] [facility] Work Phone: Glucose [Mass/Vol] 92 mg/dL 74-106 [facility] Work Phone: Potassium [Moles/Vol] 3.5 mmol/L 3.5-5.1 [facility] Work Phone: Sodium [Moles/Vol] 138 mmol/L 136-145 [facility] Work Phone: WBC (Bld) [#/Vol] 11.2 10*3/uL 4.4-11.0 [facility] Work Phone: Blood erythrocytes count (nu mber/volume)on 12-19-2021 RBC (Bld) [#/Vol] 4.50 10*6/uL 4.6-6.2 [facility] Work Phone: Blood hemoglobin measurement (mass/volume)on 12-19-2021 Hemoglobin (Bld) [Mass/Vol] 12.2 g/dL 13.0-16.5 [facility] Work Phone: Blood platelet mean volumeon 12-19-2021 Platelet mean volume (Bld) [Entitic vol] 11.3 fL 6.2-12.0 [facility] Work Phone: Determination of erythrocyte mean corpuscular volume (MCV)on 12-19-2021 MCV (RBC) [Entitic vol] 85.6 fL 80-94 [facility] Work Phone: Hematocrit Auto (Bld) [Volum e fraction]on 12-19-2021 Hematocrit (Bld) [Volume fraction] 38.5 % 40-54 [facility] Work Phone: Laboratory - Chemistry and C hemistry - challengeon 12-19-2021 CO2 [Moles/Vol] 30.0 mmol/L 21.0-32.0 [facility] Work Phone: Urea nitrogen/Creatinine [Mass ratio] 27.1 mg/mg 10-20 [facility] Work Phone: Laboratory - Hematology and Cell countson 12-19-2021 Erythrocyte distribution width (RBC) [Entitic vol] 50.5 fL 35.1-43.9 [facility] Work Phone: Erythrocyte distribution width (RBC) [Ratio] 16.0 % 11.6-14.6 [facility] Work Phone: MCH (RBC) [Entitic mass] 27.1 pg 27.0-32.0 [facility] Work Phone: MCHC Auto (RBC) [Mass/Vol]on 12-19-2021 MCHC (RBC) [Mass/Vol] 31.7 g/dL 32-36 [facility] Work Phone: No Panel Informationon 12-19 Estimated GFR (MDRD) Amer 153 mL/min >60 [facility] Work Phone: Comment on above: GFR Calc Estimated GFR (MDRD) Non-Af Amer 126 mL/min >60 [facility] Work Phone: Comment on above: Non- GFR Calc Platelets bldon 12-19-2021 Platelets (Bld) [#/Vol] 363 10*3/uL 150-450 [facility] Work Phone: Serum or plasma calcium oral urement (mass/volume)on 12-19-2021 Calcium [Mass/Vol] 9.5 mg/dL 8.5-10.1 [facility] Work Phone: Serum or plasma creatinine m easurement (mass/volume)on 12-19-2021 Creatinine [Mass/Vol] 0.66 mg/dL 0.70-1.30 [facility] Work Phone: Comment on above: The validity of the calculated GFR & GFRAA in patients over 70 years has not been determined. Clinical correlation is essential. Serum or plasma urea nitroge n measurement (mass/volume)on 12-19-2021 Urea nitrogen [Mass/Vol] 18 mg/dL 7-18 [facility] Work Phone: Thin prep Papanicolaou smear with manual screeningon 12-19-2021 Thin prep Papanicolaou smear with manual screening 5 5-15 [facility] Work Phone: Laboratory - Coagulationon 0 12-12-2021 INR Coag (Bld) [Relative time] 2.0 {INR} [facility] Work Phone: Comment on above: Critical Value > 4.0 Whole blood prothrombin time on 12-12-2021 PT Coag (Bld) [Time] 23.9 s 11.7-14.[address] [facility] Work Phone: ANES POSTPROC EVALon 022 ANES POSTPROC EVAL Normal [facility] - Coagulationon 0 12-08-2021 INR Coag (Bld) [Relative time] 1.8 {INR} [facility] Work Phone: Comment on above: Critical Value > 4.0 Whole blood prothrombin time on 12-08-2021 PT Coag (Bld) [Time] 21.0 s 11.7-14.[address] [facility] Work Phone: Absolute lymphocyte counton 12-05-2021 Lymphocytes Auto (Unsp spec) [#/Vol] 2.97 10*3/uL 0.83-4.51 [facility] Work Phone: Basophil percentageon 2021 Basophils/100 WBC (Bld) 0.6 % 0-1 [facility] Work Phone: Chloride [Moles/Vol] 106 mmol/L 98-[address] [facility] Work Phone: Eosinophils/100 WBC (Bld) 2.3 % 0-5 [facility] Work Phone: Glucose [Mass/Vol] 107 mg/dL 74-106 [facility] Work Phone: Comment on above: Fasting Glucose resu lt from 100 to 125 mg/dL suggests IMPAIRED HOMEOSTASIS per A.D.A. criteria. Neutrophils (Bld) [#/Vol] 5.6 10*3/uL 2.0-7.7 [facility] Work Phone: Neutrophils/100 WBC (Bld) 60.2 % 47-70 [facility] Work Phone: [phone] Potassium [Moles/Vol] 3.4 mmol/L 3.5-5.1 [facility] Work Phone: Sodium [Moles/Vol] 139 mmol/L 136-145 [facility] Work Phone: WBC (Bld) [#/Vol] 9.3 10*3/uL 4.4-11.0 [facility] Work Phone: Blood erythrocytes count (nu mber/volume)on 12-05-2021 RBC (Bld) [#/Vol] 4.49 10*6/uL 4.6-6.2 [facility] Work Phone: [phone] Blood hemoglobin measurement (mass/volume)on 12-05-2021 Hemoglobin (Bld) [Mass/Vol] 12.1 g/dL 13.0-16.5 [facility] Work Phone: Blood lymphocytes/100 leukoc yteson 12-05-2021 Lymphocytes/100 WBC (Bld) 32.0 % 19-41 [facility] Work Phone: Blood monocytes/100 leukocyt eson 12-05-2021 Monocytes/100 WBC (Bld) 4.7 % 0-10 [facility] Work Phone: Blood platelet mean volumeon 12-05-2021 Platelet mean volume (Bld) [Entitic vol] 10.8 fL 6.2-12.0 [facility] Work Phone: Determination of erythrocyte mean corpuscular volume (MCV)on 12-05-2021 MCV (RBC) [Entitic vol] 84.9 fL 80-94 [facility] Work Phone: Hematocrit Auto (Bld) [Volum e fraction]on 12-05-2021 Hematocrit (Bld) [Volume fraction] 38.1 % 40-54 [facility] Work Phone: INR in Blood by Coagulation assayon 12-05-2021 INR Coag (Bld) [Relative time] 1.8 {INR} [facility] Work Phone: Laboratory - Chemistry and C hemistry - challengeon 12-05-2021 CO2 [Moles/Vol] 29.0 mmol/L 21.0-32.0 [facility] Work Phone: Urea nitrogen/Creatinine [Mass ratio] 25.4 mg/mg 10-20 [facility] Work Phone: Laboratory - Coagulationon 0 12-05-2021 PT Coag (PPP) [Time] 20.5 s 11.7-14.[address] [facility] Work Phone: Laboratory - Hematology and Cell countson 12-05-2021 Erythrocyte distribution width (RBC) [Entitic vol] 48.5 fL 35.1-43.9 [facility] Work Phone: Erythrocyte distribution width (RBC) [Ratio] 15.7 % 11.6-14.6 [facility] Work Phone: Immature granulocytes/100 WBC (Bld) 0.200 % 0.0-0.9 [facility] Work Phone: Comment on above: IG% - Immature Granu locytes (promyelocytes, myelocytes and metamyelocytes) > 1% indicates that a LEFT SHIFT is Present. MCH (RBC) [Entitic mass] 26.9 pg 27.0-32.0 [facility] Work Phone: Nucleated RBC/100 WBC (Bld) [Ratio] 0 % 0-5 [facility] Work Phone: MCHC Auto (RBC) [Mass/Vol]on 12-05-2021 MCHC (RBC) [Mass/Vol] 31.8 g/dL 32-36 [facility] Work Phone: No Panel Informationon 12-05 Estimated GFR (MDRD) Amer 133 mL/min >60 [facility] Work Phone: Comment on above: GFR Calc Estimated GFR (MDRD) Non-Af Amer 110 mL/min >60 [facility] Work Phone: Comment on above: Non- GFR Calc Platelets bldon 12-05-2021 Platelets (Bld) [#/Vol] 363 10*3/uL 150-450 [facility] Work Phone: Serum or plasma calcium oral urement (mass/volume)on 12-05-2021 Calcium [Mass/Vol] 9.4 mg/dL 8.5-10.1 [facility] Work Phone: Serum or plasma creatinine m easurement (mass/volume)on 12-05-2021 Creatinine [Mass/Vol] 0.75 mg/dL 0.70-1.30 [facility] Work Phone: Comment on above: The validity of the calculated GFR & GFRAA in patients over 70 years has not been determined. Clinical correlation is essential. Serum or plasma urea nitroge n measurement (mass/volume)on 12-05-2021 Urea nitrogen [Mass/Vol] 19 mg/dL 7-18 [facility] Work Phone: Thin prep Papanicolaou smear with manual screeningon 12-05-2021 Thin prep Papanicolaou smear with manual screening 4 5-15 [facility] Work Phone: Basophil percentageon 2021 Basophil percentage 0 SEEN /hpf 0-[address] [facility] Work Phone: Chloride [Moles/Vol] 104 mmol/L 98-[address] [facility] Work Phone: Glucose [Mass/Vol] 90 mg/dL 74-106 [facility] Work Phone: Potassium [Moles/Vol] 3.7 mmol/L 3.5-5.1 [facility] Work Phone: Comment on above: Slight Hemolysis, Re sult may be falsely increased. Sodium [Moles/Vol] 138 mmol/L 136-145 [facility] Work Phone: WBC (Bld) [#/Vol] 10.7 10*3/uL 4.4-11.0 [facility] Work Phone: Bilirubin Test strip Ql (U)o n 12-01-2021 Bilirubin Ql (U) Negative Negative [facility] Work Phone: Blood erythrocytes count (nu mber/volume)on 12-01-2021 RBC (Bld) [#/Vol] 4.33 10*6/uL 4.6-6.2 [facility] Work Phone: Blood hemoglobin measurement (mass/volume)on 12-01-2021 Hemoglobin (Bld) [Mass/Vol] 11.6 g/dL 13.0-16.5 [facility] Work Phone: Blood platelet mean volumeon 12-01-2021 Platelet mean volume (Bld) [Entitic vol] 11.2 fL 6.2-12.0 [facility] Work Phone: Determination of erythrocyte mean corpuscular volume (MCV)on 12-01-2021 MCV (RBC) [Entitic vol] 85.2 fL 80-94 [facility] Work Phone: Hematocrit Auto (Bld) [Volum e fraction]on 12-01-2021 Hematocrit (Bld) [Volume fraction] 36.9 % 40-54 [facility] Work Phone: Ketones Test strip Ql (U)on 12-01-2021 Ketones Ql (U) Negative Negative [facility] Work Phone: Laboratory - Chemistry and C hemistry - challengeon 12-01-2021 CO2 [Moles/Vol] 27.0 mmol/L 21.0-32.0 [facility] Work Phone: Urea nitrogen/Creatinine [Mass ratio] 24.0 mg/mg 10-20 [facility] Work Phone: Laboratory - Coagulationon 0 12-01-2021 INR Coag (Bld) [Relative time] 1.6 {INR} [facility] Work Phone: Comment on above: Critical Value > 4.0 Laboratory - Hematology and Cell countson 12-01-2021 Erythrocyte distribution width (RBC) [Entitic vol] 47.9 fL 35.1-43.9 [facility] Work Phone: Erythrocyte distribution width (RBC) [Ratio] 15.5 % 11.6-14.6 [facility] Work Phone: MCH (RBC) [Entitic mass] 26.8 pg 27.0-32.0 [facility] Work Phone: MCHC Auto (RBC) [Mass/Vol]on 12-01-2021 MCHC (RBC) [Mass/Vol] 31.4 g/dL 32-36 [facility] Work Phone: Mucus LM Ql (Urine sed)on Mucus Ql (Urine sed) 0 SEEN /hpf [facility] Work Phone: Nitrite Test strip Ql (U)on 12-01-2021 Nitrite Ql (U) Negative Negative [facility] Work Phone: No Panel Informationon 12-01 Estimated GFR (MDRD) Amer 133 mL/min >60 [facility] Work Phone: Comment on above: GFR Calc Estimated GFR (MDRD) Non-Af Amer 110 mL/min >60 [facility] Work Phone: Comment on above: Non- GFR Calc Platelets bldon 12-01-2021 Platelets (Bld) [#/Vol] 336 10*3/uL 150-450 [facility] Work Phone: Protein Test strip Ql (U)on 12-01-2021 Protein Ql (U) 30 mg/dl Negative [facility] Work Phone: Serum or plasma calcium oral urement (mass/volume)on 12-01-2021 Calcium [Mass/Vol] 9.4 mg/dL 8.5-10.1 [facility] Work Phone: Serum or plasma creatinine m easurement (mass/volume)on 12-01-2021 Creatinine [Mass/Vol] 0.75 mg/dL 0.70-1.30 [facility] Work Phone: Comment on above: The validity of the calculated GFR & GFRAA in patients over 70 years has not been determined. Clinical correlation is essential. Serum or plasma urea nitroge n measurement (mass/volume)on 12-01-2021 Urea nitrogen [Mass/Vol] 18 mg/dL 7-18 [facility] Work Phone: Squamous epithelial cells de tection in urine sediment by light microscopyon 12-01-2021 Epithelial cells.squamous LM Ql (Urine sed) 0-5 SEEN /hpf 0-5 [facility] Work Phone: Thin prep Papanicolaou smear with manual screeningon 12-01-2021 Thin prep Papanicolaou smear with manual screening 7 5-15 [facility] Work Phone: Urine blood detectionon 11-05 RBC Ql (U) Negative Negative [facility] Work Phone: RBC Ql (U) 0 SEEN /hpf 0-5 [facility] Work Phone: Urine clarityon 12-01-2021 Clarity (U) Clear Clear [facility] Work Phone: Urine color determinationon 12-01-2021 Color (U) Yellow Yellow [facility] Work Phone: Urine glucose detectionon Glucose Ql (U) 50 mg/dl Normal [facility] Work Phone: Urine leukocyte esterase det ection by dipstickon 12-01-2021 Leukocyte esterase Test strip Ql (U) Negative Negative [facility] Work Phone: Urine pHon 12-01-2021 pH (U) 6.0 [pH] 5.0 - 8.0 [facility] Work Phone: Urine sediment bacteria coun t by microscopy (number/high power field)on 12-01-2021 Bacteria LM.HPF (Urine sed) [#/Area] 0 /[HPF] None Seen [facility] Work Phone: Urine sediment yeast count b y microscopy (number/high powered field)on 12-01-2021 Yeast LM.HPF (Urine sed) [#/Area] 2 /[HPF] None Seen [facility] Work Phone: Urine specific gravity measu rementon 12-01-2021 Specific gravity (U) [Rel density] 1.010 1.002-1.030 [facility] Work Phone: Urobilinogen Auto test strip Ql (U)on 12-01-2021 Urobilinogen Ql (U) Normal mg/dl Normal [facility] Work Phone: Whole blood prothrombin time on 12-01-2021 PT Coag (Bld) [Time] 19.8 s 11.7-14.[address] [facility] Work Phone: Laboratory - Coagulationon 0 11-28-2021 INR Coag (Bld) [Relative time] 1.6 {INR} [facility] Work Phone: Comment on above: Critical Value > 4.0 Whole blood prothrombin time on 11-28-2021 PT Coag (Bld) [Time] 18.8 s 11.7-14.[address] [facility] Work Phone: INR in Blood by Coagulation assayon 11-23-2021 INR Coag (Bld) [Relative time] 2.7 {INR} [facility] Work Phone: Laboratory - Coagulationon 0 11-23-2021 PT Coag (PPP) [Time] 28.0 s 11.7-14.[address] [facility] Work Phone: Laboratory - Coagulationon 0 11-22-2021 INR Coag (Bld) [Relative time] 3.8 {INR} [facility] Work Phone: Comment on above: Critical Value > 4.0 Whole blood prothrombin time on 11-22-2021 PT Coag (Bld) [Time] 42.8 s 11.7-14.[address] [facility] Work Phone: INR in Blood by Coagulation assayon 11-21-2021 INR Coag (Bld) [Relative time] 3.9 {INR} [facility] Work Phone: Laboratory - Coagulationon 0 11-21-2021 PT Coag (PPP) [Time] 37.7 s 11.7-14.[address] [facility] Work Phone: Whole blood prothrombin time on 11-21-2021 PT Coag (Bld) [Time] 45.5 s 11.7-14.[address] [facility] Work Phone: INR in Blood by Coagulation assayon 11-14-2021 INR Coag (Bld) [Relative time] 3.1 {INR} [facility] Work Phone: Laboratory - Coagulationon 0 11-14-2021 PT Coag (PPP) [Time] 31.4 s 11.7-14.[address] [facility] Work Phone: Laboratory - Coagulationon 0 11-08-2021 INR Coag (Bld) [Relative time] 2.5 {INR} [facility] Work Phone: Comment on above: Critical Value > 4.0 Whole blood prothrombin time on 11-08-2021 PT Coag (Bld) [Time] 29.0 s 11.7-14.[address] [facility] Work Phone: Basophil percentageon 2021 Chloride [Moles/Vol] 106 mmol/L 98-[address] [facility] Work Phone: Glucose [Mass/Vol] 100 mg/dL 74-106 [facility] Work Phone: Comment on above: Fasting Glucose resu lt from 100 to 125 mg/dL suggests IMPAIRED HOMEOSTASIS per A.D.A. criteria. Potassium [Moles/Vol] 3.7 mmol/L 3.5-5.1 [facility] Work Phone: Sodium [Moles/Vol] 140 mmol/L 136-145 [facility] Work Phone: WBC (Bld) [#/Vol] 8.8 10*3/uL 4.4-11.0 [facility] Work Phone: Blood erythrocytes count (nu mber/volume)on 11-04-2021 RBC (Bld) [#/Vol] 4.05 10*6/uL 4.6-6.2 [facility] Work Phone: Blood hemoglobin measurement (mass/volume)on 11-04-2021 Hemoglobin (Bld) [Mass/Vol] 11.1 g/dL 13.0-16.5 [facility] Work Phone: Blood platelet mean volumeon 11-04-2021 Platelet mean volume (Bld) [Entitic vol] 10.8 fL 6.2-12.0 [facility] Work Phone: Determination of erythrocyte mean corpuscular volume (MCV)on 11-04-2021 MCV (RBC) [Entitic vol] 86.9 fL 80-94 [facility] Work Phone: Hematocrit Auto (Bld) [Volum e fraction]on 11-04-2021 Hematocrit (Bld) [Volume fraction] 35.2 % 40-54 [facility] Work Phone: INR in Blood by Coagulation assayon 11-04-2021 INR Coag (Bld) [Relative time] 1.8 {INR} [facility] Work Phone: Laboratory - Chemistry and C hemistry - challengeon 11-04-2021 CO2 [Moles/Vol] 26.0 mmol/L 21.0-32.0 [facility] Work Phone: Urea nitrogen/Creatinine [Mass ratio] 18.3 mg/mg 10-20 [facility] Work Phone: Laboratory - Coagulationon 0 11-04-2021 PT Coag (PPP) [Time] 20.4 s 11.7-14.[address] [facility] Work Phone: Laboratory - Hematology and Cell countson 11-04-2021 Erythrocyte distribution width (RBC) [Entitic vol] 48.1 fL 35.1-43.9 [facility] Work Phone: Erythrocyte distribution width (RBC) [Ratio] 15.0 % 11.6-14.6 [facility] Work Phone: MCH (RBC) [Entitic mass] 27.4 pg 27.0-32.0 [facility] Work Phone: MCHC Auto (RBC) [Mass/Vol]on 11-04-2021 MCHC (RBC) [Mass/Vol] 31.5 g/dL 32-36 [facility] Work Phone: No Panel Informationon 11-04 D-Dimer Quantitative (PE/DVT) 0.56 FEU/ug/m 0.27-0.49 [facility] Work Phone: Comment on above: D-Dimer ELEVATED (>0 .49): Additional studies and clinicalassessments are indicated to conclude diagnosis of:Deep Vein Thrombosis (DVT) or Pulmonary Embolism (PE) Estimated GFR (MDRD) Amer 155 mL/min >60 [facility] Work Phone: Comment on above: GFR Calc Estimated GFR (MDRD) Non-Af Amer 128 mL/min >60 [facility] Work Phone: Comment on above: Non- GFR Calc Troponin I High Sensitivity 11 pg/mL 3.0-78.0 [facility] Work Phone: Comment on above: Please Note: New Fadumo t Units and Gender Specific Reference Ranges. For more information see Policy Stat Procedure [place] High Sensitivity Troponin (TNIH) and attachments. Platelets bldon 11-04-2021 Platelets (Bld) [#/Vol] 364 10*3/uL 150-450 [facility] Work Phone: Serum or plasma C reactive p rotein measurement (mass/volume)on 11-04-2021 CRP [Mass/Vol] 31.90 mg/L 0.0-3.0 [facility] Work Phone: Comment on above: C-Reactive Protein ( CRP) provides useful information for thediagnosis, therapy and monitoring of inflammatory processesand associated diseases. For the evaluation of Relative Riskfor Cardiovascular Disease, a High Sensitivity CRP (HSCRP)should be ordered. Serum or plasma calcium oral urement (mass/volume)on 11-04-2021 Calcium [Mass/Vol] 9.1 mg/dL 8.5-10.1 [facility] Work Phone: Serum or plasma creatinine m easurement (mass/volume)on 11-04-2021 Creatinine [Mass/Vol] 0.66 mg/dL 0.70-1.30 [facility] Work Phone: Comment on above: The validity of the calculated GFR & GFRAA in patients over 70 years has not been determined. Clinical correlation is essential. Serum or plasma urea nitroge n measurement (mass/volume)on 11-04-2021 Urea nitrogen [Mass/Vol] 12 mg/dL 7-18 [facility] Work Phone: Thin prep Papanicolaou smear with manual screeningon 11-04-2021 Thin prep Papanicolaou smear with manual screening 8 5-15 [facility] Work Phone: Complete Urinalysison 2021 Appearance (U) Clear Normal Clear [facility] [employer] Comment on above: Result Comment: . Performed By: #### C UA2 ####[id number] [employer] [place], [place] Bacteria Moderate Abnormal Negative [facility] [employer] Comment on above: Result Comment: . Performed By: #### C UA2 ####[id number] [place] Bilirubin,Urine Negative Normal Negative [facility] [employer] Comment on above: Result Comment: . Performed By: #### C UA2 ####[id number] [place], [place] Cast, Hyaline Negative Normal Negative [facility] [employer] Comment on above: Result Comment: . Performed By: #### C UA2 ####[id number] . [place], [place] Color (U) Yellow Normal Lt. Yellow [facility] [employer] Comment on above: Result Comment: . Performed By: #### C UA2 ####[address] [place], [place] Glucose Ql (U) Normal Normal Normal (<70) [facility] Comment on above: Result Comment: . Performed By: #### C UA2 ####[address] [place], [place] Ketone,Urine Negative Normal Negative [facility] Comment on above: Result Comment: . Performed By: #### C UA2 ####[address] [place], [place] Leukocytes,Urine Negative Normal Negative [facility] Comment on above: Result Comment: . Performed By: #### C UA2 ####[address] Mucous Threads Few Normal Negative [facility] Comment on above: Result Comment: . Performed By: #### C UA2 ####[address] Nitrites,Urine Negative Normal Negative [facility] Comment on above: Result Comment: . Performed By: #### C UA2 ####[address] Occult Blood,Urine 0.1 mg/dL Abnormal Negative [facility] Comment on above: Result Comment: . Performed By: #### C UA2 ####[address] pH,Urine 5.5 Normal 5.0-8.0 [facility] Comment on above: Result Comment: . Performed By: #### C UA2 ####[address] Protein (U) [Mass/Vol] 10 mg/dL Abnormal Negative [facility] Comment on above: Result Comment: . Performed By: #### C UA2 ####[address] RBC, Urine 26 - 50 Abnormal 0-2 [facility] Comment on above: Result Comment: . Performed By: #### C UA2 ####[address] Specific [place],Urine 1.023 Normal 1.005 - 1.030 [facility] Comment on above: Result Comment: . Performed By: #### C UA2 ####[id number] [place], [place] Squamous Epithelial Negative Normal 3-5 [facility] Comment on above: Result Comment: . Performed By: #### C UA2 ####[address] [place], [place] Urobilinogen,Urine Normal Normal Normal (0-1) [facility] Comment on above: Result Comment: . Performed By: #### C UA2 ####[address] [place], [place] WBC, Urine 0 - 2 Normal 0-5 [facility] Comment on above: Result Comment: . Performed By: #### C UA2 ####[address] Urinalysison 11-01-2021 Appearance (U) Clear Clear [...] /[HPF] [facility] Comment on above: . Specific Gonzales, Urine 1.023 [facility] Comment on above: . Squam Epithel, UA Negative 3 - 5 /[HPF] [facility] Comment on above: . Urobilinogen, Urine Normal Normal ( 0-1) mg/dL [facility] Comment on above: . WBC, UA 0-2 0 - 5 /[HPF] [facility] Comment on above: . Test Performed by [facility], [address] [place] [address] [facility] Basic Metabolic Panelon 06-2 Anion gap [Moles/Vol] 6 mmol/L Normal 3-13 [facility] Comment on above: Performed By: #### P T/AP, TROPN, BMP3, HEMDF #### [address] Calcium [Mass/Vol] 9.1 mg/dL Normal 8.4-10.4 [facility] Comment on above: Performed By: #### P T/AP, TROPN, BMP3, HEMDF #### [address] CO2 [Moles/Vol] 28 mmol/L Normal 22-30 [facility] Comment on above: Performed By: #### P T/AP, TROPN, BMP3, HEMDF #### [address] Glucose [Mass/Vol] 120 mg/dL High 70-100 [facility] Comment on above: Performed By: #### P T/AP, TROPN, BMP3, HEMDF #### [address] Urea nitrogen [Mass/Vol] 17 mg/dL Normal 7-17 [facility] Comment on above: Performed By: #### P T/AP, TROPN, BMP3, HEMDF #### [address] Creatinine [Mass/Vol] 0.65 mg/dL Normal 0.52-1.25 [facility] Comment on above: Performed By: #### P T/AP, TROPN, BMP3, HEMDF #### [address] eGFR OTHER > 90.0 Normal >60 [facility] Comment on above: Result Comment: KDIG O [...] #### P T/AP, TROPN, BMP3, HEMDF #### [address] GFR/1.73 sq M.predicted among blacks MDRD (S/P/Bld) [Vol rate/Area] mL/min/{1.73_m2} Normal >60 [facility] Comment on above: Performed By: #### P T/AP, TROPN, BMP3, HEMDF #### [address] Potassium [Moles/Vol] 3.8 mmol/L Normal 3.5-5.1 [facility] Comment on above: Performed By: #### P T/AP, TROPN, BMP3, HEMDF #### [address] Chloride [Moles/Vol] 101 mmol/L Normal 98-107 [facility] Comment on above: Performed By: #### P T/AP, TROPN, BMP3, HEMDF #### [address] Sodium [Moles/Vol] 134 mmol/L Low 135-145 [facility] Comment on above: Performed By: #### P T/AP, TROPN, BMP3, HEMDF #### [address] [address] Anion gap [Moles/Vol] 6 mmol/L 3 - 13 mmol/L [facility] Calcium [Mass/Vol] 9.1 mg/dL 8.4 - 10. 4 mg/dL [facility] Chloride [Moles/Vol] 101 mmol/L 98 - 10 7 mmol/L [facility] CO2 [Moles/Vol] 28 mmol/L 22 - 30 mmol/L [facility] Creatinine [Mass/Vol] 0.65 mg/dL 0.52 - 1.25 mg/dL [facility] EGFR IF NonAfrican Burkinan >90.0 >60 mL/min [facility] Comment on above: [...] - 17 mg/dL [facility] Test Performed by [facility], [address] [place] [address] [facility] CBC with Auto Differentialon 10-31-2021 [...] - 10.7 10*3/uL [facility] Test Performed by [facility], [address] [place] [address] [facility] Abdomen APon 10-31-2021 CR Abdomen AP Patient Name: ANDREW SIFUENTES Diagnostic Radiology ACCESSION EXAM DATE/TIME PROCEDURE ORDERING PROVIDER [id number] 10/31/2021 20:36 EDT CR Abdomen AP [id number] -MYRON DURAN CPT code 69020 Reason For Exam (CR Abdomen AP) vp rheumatology shunt, 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 CHEST PORTABLE [...] Transcribed Date and Time: 10/31/2021 8:49 Normal [facility] CR Chest Portableon 11-01-19 22 CR Chest Portable Patient Name: ANDREW SIFUENTES Diagnostic Radiology ACCESSION EXAM DATE/TIME PROCEDURE ORDERING PROVIDER [id number] 10/31/2021 20:36 EDT CR Chest Portable [id number] -DESEAN DURANY CPT code 68421 Reason For Exam (CR Chest Portable) AMS [...] Transcribed Date and Time: 10/31/2021 8:[address] [facility] CT HEAD WO CONTRASTon 2021 [id number] Computed Tomography ACCESSION EXAM DATE/TIME PROCEDURE ORDERING PROVIDER [id number] 10/31/2021 20:[address] Head or Brain w/o [id number] YMRON GALINDO Contrast CPT code 26203 Reason For Exam (CT Head or Brain w/o Contrast) AMS, previous JUKE BOX SERVICER shunt Report Examination: CT Head Clinical Information: AMS, previous JUKE BOX SERVICER shunt Comparison: 10/26/2021, MRI 10/27/2021 Findings: Serial [...] J Transcribed Date and Time: 10/31/2021 8:54 [facility] Alan Wong MD - 10/31/2021 Patient Name: [id number] Computed Tomography ACCESSION EXAM DATE/TIME PROCEDURE ORDERING PROVIDER [id number] 10/31/2021 20:[address] Head or Brain w/o [id number] -MYRON DURAN Contrast CPT code 91986 Reason For Exam (CT Head or Brain w/o Contrast) AMS, previous JUKE BOX SERVICER shunt Report Examination: CT Head Clinical Information: AMS, previous JUKE BOX SERVICER shunt Comparison: 10/26/2021, MRI 10/27/2021 Findings: Serial [...] Brain w/o Contrast Patient [facility]: [id number] Computed Tomography ACCESSION EXAM DATE/TIME PROCEDURE ORDERING PROVIDER [id number] 10/31/2021 20:[address] Head or Brain w/o [id number] -MYRON DURAN Contrast CPT code 28054 Reason For Exam (CT Head or Brain w/o Contrast) AMS, previous JUKE BOX SERVICER shunt Report Examination: CT Head Clinical Information: AMS, previous JUKE BOX SERVICER shunt Comparison: 10/26/2021, MRI 10/27/2021 Findings: Serial [...] Transcribed Date and Time: 10/31/2021 8:54 Normal [facility] ED Provider Noteon ED Provider Note Emergency Department Encounter [facility] Patient: Andrew Sifuentes : 1950 [...] is cooperative and calm. According to the shelter, he has been more lethargic than normal, [...] Dante Kim MD [employer] Dante Kmi MD 10/31/21 2211 [facility] ED Provider Note [facility] EMERGENCY DEPARTMENT ENCOUNTER Pt Name: Andrew Sifuentes Birthdate 1950 Date of evaluation: 10/31/2021 Provider: Myron Duran MD CHIEF COMPLAINT Chief Complaint Patient presents with ? Altered Mental Status Pt presents to ED via [facility] for complaint listed. Pt is from [place] [facility]. Pt's LKW was 1000 hours today. [...] have a history of hydrocephalus with a JUKE BOX SERVICER shunt. 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 REVIEW OF [...] (HCC) ? Kidney stone ? Neuropathy ? JUKE BOX SERVICER (ventriculoperitoneal) shunt status SURGICAL HISTORY Past Surgical [...] of Transportati (more content not included)... 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: ANDRES : 1950 Requested By: MYRON DURAN Order Number: [id number] Reading MD: Dante Kim Measurements Intervals [place] Rate: 91 P: 41 SC: 154 QRS: 50 QRSD: 147 T: 8 QT: 385 QTc: 474 Interpretive Statements Sinus rhythm Right bundle branch block Electronically Signed On 10-31-2021 20:36:25 EDT by Dante Kim [facility] Dante Kim M D - 10/31/2021 [facility] Test Date: 2021-10-31 Pat Name: ANDREW SIFUENTES Department: [facility] Room: 40 Gender: M Polysomnographic Technician: ANDRES : 1950 Requested By: MYRON DURAN Order Number: [id number] Reading : Dante Kim Measurements Intervals [place] Rate: 91 P: 41 SC: 154 QRS: 50 QRSD: 147 T: 8 QT: 385 QTc: 474 Interpretive Statements Sinus rhythm Right bundle branch block Electronically Signed On 10-31-2021 20:36:25 EDT by Dante Kim [facility] Work Phone: EKG 12 Lead - Chest PainOrde red By: Dante Kim on 10-31-2021 [facility] Work Phone: Hemogram w/ Autodiffon 10-31 Abs Baso Cnt 0.1 10*3/uL Normal 0.0-0.2 [facility] Comment on above: Performed By: #### P T/AP, TROPN, BMP3, HEMDF #### [address] [place] [address] Abs Neutrophile Cnt 6.0 10*3/uL Normal 1.8-7.0 [facility] Comment on above: Performed By: #### P T/AP, TROPN, BMP3, HEMDF #### [address] [place] [address] Basophils/100 WBC (Bld) 1.1 % Normal 0.0-2.0 [facility] Comment on above: Performed By: #### P T/AP, TROPN, BMP3, HEMDF #### [address] [place], [place] Eosinophils (Bld) [#/Vol] 0.2 10*3/uL Normal 0.0-0.5 [facility] Comment on above: Performed By: #### P T/AP, TROPN, BMP3, HEMDF #### [address] [place] [address] Eosinophils/100 WBC (Bld) 2.3 % Normal 1.0-6.0 [facility] Comment on above: Performed By: #### P T/AP, TROPN, BMP3, HEMDF #### [address] [place], [place] Erythrocyte distribution width (RBC) [Ratio] 17.2 % High 11.5-14.5 [facility] Comment on above: Performed By: #### P T/AP, TROPN, BMP3, HEMDF #### [address] [place] [address] Granulocytes/100 WBC (Bld) 61.8 % Normal 40.0-80.0 [facility] Comment on above: Performed By: #### P T/AP, TROPN, BMP3, HEMDF #### [address] [place], [place] Hematocrit (Bld) [Volume fraction] 35.0 % Low 40.0-52.0 [facility] Comment on above: Performed By: #### P T/AP, TROPN, BMP3, HEMDF #### [address] [place], [place] Hemoglobin (Bld) [Mass/Vol] 11.3 g/dL Low 13.0-18.0 [facility] Comment on above: Performed By: #### P T/AP, TROPN, BMP3, HEMDF #### [address] Lymphocytes (Bld) [#/Vol] 2.8 10*3/uL Normal 1.0-4.3 [facility] Comment on above: Performed By: #### P T/AP, TROPN, BMP3, HEMDF #### [address] Lymphocytes/100 WBC (Bld) 29.2 % Normal 20.0-40.0 [facility] Comment on above: Performed By: #### P T/AP, TROPN, BMP3, HEMDF #### [address] MCH (RBC) [Entitic mass] 27.5 pg Normal 26.0-34.0 [facility] Comment on above: Performed By: #### P T/AP, TROPN, BMP3, HEMDF #### [address] [place], [place] MCHC 32.3 % Normal 32.0-36.0 [facility] Comment on above: Performed By: #### P T/AP, TROPN, BMP3, HEMDF #### [address] MCV (RBC) [Entitic vol] 85.0 fL Normal 80.0-98.0 [facility] Comment on above: Performed By: #### P T/AP, TROPN, BMP3, HEMDF #### [address] [place], [place] Monocytes (Bld) [#/Vol] 0.5 10*3/uL Normal 0.0-0.8 [facility] Comment on above: Performed By: #### P T/AP, TROPN, BMP3, HEMDF #### [address] [place], [place] Monocytes/100 WBC (Bld) 5.6 % Normal 2.0-10.0 [facility] Comment on above: Performed By: #### P T/AP, TROPN, BMP3, HEMDF #### [address] [place], [place] Platelet mean volume (Bld) [Entitic vol] 8.6 fL Normal 7.4-12.4 [facility] Comment on above: Result Comment: MPV is a calculated measurement using platelet volume ratio. Performed By: #### P T/AP, TROPN, BMP3, HEMDF #### [address] [place], [place] Platelets (Bld) [#/Vol] 348 10*3/uL Normal 140-440 [facility] Comment on above: Performed By: #### P T/AP, TROPN, BMP3, HEMDF #### [address] [place], [place] RBC (Bld) [#/Vol] 4.12 10*6/uL Low 4.40-5.90 [facility] Comment on above: Performed By: #### P T/AP, TROPN, BMP3, HEMDF #### [address] [place], [place] WBC (Bld) [#/Vol] 9.7 10*3/uL Normal 3.6-10.7 [facility] Comment on above: Performed By: #### P T/AP, TROPN, BMP3, HEMDF #### [address] [place], [place] Laboratory - Coagulationon 0 10-31-2021 INR Coag (Bld) [Relative time] 2.0 {INR} [facility] Work Phone: Comment on above: Critical Value > 4.0 No Panel Informationon 10-31 Radiology Study observation (narrative) [facility] Work Phone: PROTIME/INR & PTTon 11-01-19 22 aPTT Coag (Bld) [Time] 39.2 s High 20.0 - 30.5 s [facility] Comment on above: NOTE: The therapeuti c time for Heparin anticoagulation, based on Xa activity inhibition, is an APTT of 46-80 seconds. INR Coag (Bld) [Relative time] 1.9 {INR} High [facility] Comment on above: Recommended Anticoag ulant [...] Interpretation and review of laboratory results Abnormal [facility] PT Coag (PPP) [Time] 19.8 s High 9.0 - 12.0 s [facility] Comment on above: . Test Performed by [facility], [address] [place] [address] Protime AND APTTon aPTT Coag (Bld) [Time] 39.2 s High 20.0-30.5 [facility] Comment on above: Result Comment: NOTE : The therapeutic time for Heparin anticoagulation, based on Xa activity inhibition, is an APTT of 46-80 seconds. Performed By: #### P T/AP, TROPN, BMP3, HEMDF #### [address] [address] INR 1.9 High 0.9-1.1 [facility] Comment on above: Result Comment: Harry mmended [...] #### P T/AP, TROPN, BMP3, HEMDF #### [address] [address] PT Coag (PPP) [Time] 19.8 s High 9.0-12.0 [facility] Comment on above: Result Comment: . Performed By: #### P T/AP, TROPN, BMP3, HEMDF #### [address] [address] Troponin Ion 10-31-2021 Troponin I.cardiac [Mass/Vol] ng/mL Normal 0.000-0.034 [facility] Comment on above: Result Comment: . Performed By: #### P T/AP, TROPN, BMP3, HEMDF #### [address] [address] Troponin x1on 10-31-2021 Troponin I.cardiac [Mass/Vol] ng/mL 0.000 - 0.034 ng/mL [facility] Comment on above: . Test Performed by [facility], [address] [place] [address] [facility] Whole blood prothrombin time on 10-31-2021 PT Coag (Bld) [Time] 23.7 s 11.7-14.[address] [facility] Work Phone: XR ABDOMEN (KUB) (SINGLE AP VIEW)on 10-31-2021 Patient Name: ANDREW SIFUENTES Diagnostic Radiology ACCESSION EXAM DATE/TIME PROCEDURE ORDERING PROVIDER [id number] 10/31/2021 20:36 EDT CR Abdomen AP [id number] -MYRON DURAN CPT code 08828 Reason For Exam (CR Abdomen AP) vp rheumatology shunt, 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 CHEST PORTABLE [...] WENDELL Transcribed Date and Time: 10/31/2021 8:49 [facility] Huang Reynoso MD - 10/31/2021 [id number] Diagnostic Radiology ACCESSION EXAM DATE/TIME PROCEDURE ORDERING PROVIDER [id number] 10/31/2021 20:36 EDT CR Abdomen AP [id number] -MYRON DURAN CPT code 49767 Reason For Exam (CR Abdomen AP) vp rheumatology shunt, 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 CHEST PORTABLE [...] Radiology ACCESSION EXAM DATE/TIME PROCEDURE ORDERING PROVIDER [id number] 10/31/2021 20:36 EDT CR Chest Portable [id number] MYRON GALINDO CPT code 38458 Reason For Exam (CR Chest Portable) AMS [...] Date and Time: 10/31/2021 8:49 [facility] Huang Munoz MD - 10/31/2021 Patient Name: ANDREW SIFUENTES Diagnostic Radiology ACCESSION EXAM DATE/TIME PROCEDURE ORDERING PROVIDER [id number] 10/31/2021 20:36 EDT CR Chest Portable [id number] -MYRON DURAN CPT code 62263 Reason For Exam (CR Chest Portable) AMS [...] Transcribed Date and Time: 10/31/2021 8:49 [facility] Work Phone: XR CHEST PORTABLEOrdered By: Huang Reynoso on 10-31-2021 [facility] Work Phone: Lupus Anticoagulanton 2021 DRVVT Confirmation Test Not Applicable Negative ratio [facility] Work Phone: dRVVT Screen 38 [facility] Work Phone: Hex Phosph Neut Test Not Applicable Negative NA [facility] Work Phone: Interpretation and review of laboratory results Abnormal [facility] Work Phone: LUPUS INTERPRETATION See Note [facility] [...] has not already been performed. Performed by [employer], [address] [place] [address],[place] [address] [email or web address], Quiana Castro MD - Lab. Director Platelet Neutralization Not Applicable Negative NA [facility] Work Phone: [phone] PTT-D Heparin Neutralized 48 [facility] Work Phone: [phone] PTT-LA [address] [facility] Work Phone: [phone] Reptilase Tm 17.6 <=21.9 sec [facility] Work Phone: [phone] [facility] Work Phone: [phone] [facility] Work Phone: [phone] Lupus Anticoagulant Reflexiv e Panelon 10-29-2021 aPTT Coag (Bld) [Time] 55 s High 32-48 [facility] Comment on above: Performed By: #### C OVAG #### [facility] [employer] [facility] [address] [place] [address] aPTT Coag (Bld) [Time] 48 s Normal 32-48 [facility] Comment on above: Performed By: #### C OVAG #### [facility] [employer] [facility] [address] [place] [address] DRVVT 1:1 Mix Not Applicable Normal 33-44 [facility] Work Phone: Comment on above: Performed By: #### C OVAG #### [facility] [employer] [facility] [address] [place] [address] dRVVT Confirmation Not Applicable Normal Negative [facility] Comment on above: Performed By: #### C OVAG #### [facility] [address] [place] [address] dRVVT Screen 38 sec Normal 33-44 [facility] Comment on above: Performed By: #### C OVAG #### [facility] [address] [place] [address] Hexagonal Phospholipid Neutral Reflex Not Applicable Normal Negative [facility] Comment on above: Performed By: #### C OVAG #### [facility] [address] [place] [address] Lupus Anticoagulant Interpretation See Note Normal [facility] Comment on above: Result Comment: Lupu s [...] has not already been performed. Performed by [employer], [address] [place] [address] [email or web address], Quiana Castro MD - Lab. Director Performed By: #### C OVAG #### [facility] [address] [place] [address] Platelet Neutralization (PTT-D, Confirm) Not Applicable Normal Negative [facility] Comment on above: Performed By: #### C OVAG #### [facility] [address] [place] [address] PT Coag (PPP) [Time] 14.7 s Normal 12.0-15.5 [facility] Work Phone: Comment on above: Performed By: #### C OVAG #### [facility] [address] [place] [address] PTT-D 1:1 Mix Not Applicable Normal 32-48 [facility] Work Phone: Comment on above: Performed By: #### C OVAG #### [facility] [address] [place] [address] Reptilase Time 17.6 sec Normal <=21.9 [facility] Comment on above: Performed By: #### C OVAG #### [facility] [address] [place] [address] Thrombin Time 25.3 sec High 14.7-19.5 [facility] Comment on above: Performed By: #### C OVAG #### [facility] [address] [place] [address] POCT COVID-19, Antigenon SARS-CoV-2 Nucleocapsid Antigen Negative Negative [facility] Comment on above: A negative result does not rule out the possibility of SARS-CoV-2 infection. NAAT-based methods should be considered for symptomatic patients presenting greater than seven days after onset of symptoms. Method: Lateral flow immunoassay. Fact sheets for healthcare providers and patients can be found at the following sites: https://www.fda.gov/media/619103/download https://www.fda.gov/media/568257/download Test Performed by [facility], [address] LAB [facility] Prothrombin Timeon INR 2.7 High 0.9-1.1 [facility] Comment on above: Result Comment: Harry mmended [...] Infarction Performed By: #### P T #### [facility] [address] [place] [address] PT Coag (PPP) [Time] 27.4 s High 9.0-12.0 [facility] Comment on above: Result Comment: . Performed By: #### P T #### [facility] [address] [place] [address] Protime-INRon 10-29-2021 INR Coag (Bld) [Relative time] 2.7 {INR} High [facility] Work Phone: Comment on above: Recommended [...] Interpretation and review of laboratory results Abnormal [facility] Work Phone: PT Coag (PPP) [Time] 27.4 s High 9.0 - 12.0 s [employer] Work Phone: Comment on above: . Test Performed by [facility] [employer], [address] [place], [place] [address] [facility] Work Phone: SARS-CoV-2 Antigenon 022 SARS-CoV-2 Antigen Negative Normal Negative [facility] Comment on above: Result Comment: A negative result does not rule out the possibility of SARS-CoV-2 infection. NAAT-based methods should be considered for symptomatic patients presenting greater than seven days after onset of symptoms. Method: Lateral flow immunoassay. Fact sheets for healthcare providers and patients can be found at the following sites: https://www.fda.gov/media/370844/download https://www.fda.gov/media/080481/download Performed By: #### C OVAG #### [facility] [address] [place] [address] CBCon 10-28-2021 Hematocrit (Bld) [Volume fraction] 33.4 % Low 40.0 - 52.0 % [facility] Work Phone: Hemoglobin (Bld) [Mass/Vol] 11.0 g/dL Low 13.0 - 18.0 g/dL [facility] Work Phone: Interpretation and review of laboratory results Abnormal [facility] Work Phone: 1() MCH (RBC) [Entitic mass] 27.8 pg 26.0 - 34.[address] [facility] Work Phone: 1() MCHC (RBC) [Mass/Vol] 32.8 % 32.0 - 36.0 % [facility] Work Phone: 1() MCV (RBC) [Entitic vol] 84.8 fL 80.0 - 98.[address] [facility] Work Phone: 1( Platelet distribution width (Bld) [Ratio] 17.1 % High 11.5 - 14.5 % [facility] Work Phone: 1( Platelet mean volume (Bld) [Entitic vol] 8.3 fL 7.4 - 12.[address] [facility] Work [facility]: 1() Comment on above: MPV is a calculated measurement using platelet volume ratio. Platelets (Bld) [#/Vol] 344 10*3/uL 140 - 440 10*3/uL [facility] Work Phone: 1() RBC (Bld) [#/Vol] 3.94 10*6/uL Low 4.40 - 5.9 0 10*6/uL [facility]: 1() 222 WBC (Bld) [#/Vol] 10.0 10*3/uL 3.6 - 10.7 10*3/uL [facility] Work Phone: 1() Test Performed by [facility], [address] [place], [place] [address] [facility] Work Phone: 1() Comp Metabolic Panelon 10-28 ALP [Catalytic activity/Vol] 103 U/L Normal 38-126 [facility] Comment on above: Performed By: #### C A19O, LUPUS #### The performing lab is in the report. #### NSEO #### [facility] #### HEMDF, LDH3, BMP3, MG3, PT, CEA2 #### [facility] [address] [place] [address] #### B2GPM, B2GPA, B2GPG #### [address] ALT [Catalytic activity/Vol] 26 U/L Normal 0-49 [facility] Comment on above: Result Comment: The ALT test is performed by an updated assay method. Please note that the reference intervals have been changed and are now sex specific. Performed By: #### C A19O, LUPUS #### The performing lab is in the report. #### NSEO #### [facility] #### HEMDF, LDH3, BMP3, MG3, PT, CEA2 #### [place] [address] [place] [address] #### B2GPM, B2GPA, B2GPG #### [address] AST [Catalytic activity/Vol] 24 U/L Normal 15-46 [facility] Comment on above: Performed By: #### C A19O, LUPUS #### The performing lab is in the report. #### NSEO #### [facility] #### HEMDF, LDH3, BMP3, MG3, PT, CEA2 #### [address] [place] [facility] [place] [address] #### B2GPM, B2GPA, B2GPG #### [address] Calcium [Mass/Vol] 9.1 mg/dL Normal 8.4-10.4 [facility] Comment on above: Performed By: #### C A19O, LUPUS #### The performing lab is in the report. #### NSEO #### [facility] #### HEMDF, LDH3, BMP3, MG3, PT, CEA2 #### [facility] [address] [facility] [facility] [place] [place] [address] #### B2GPM, B2GPA, B2GPG #### [address] Glucose [Mass/Vol] 117 mg/dL High 70-100 [facility] Comment on above: Performed By: #### C A19O, LUPUS #### The performing lab is in the report. #### NSEO #### [facility] #### HEMDF, LDH3, BMP3, MG3, PT, CEA2 #### [place] [address] [place] [address] #### B2GPM, B2GPA, B2GPG #### [address] Urea nitrogen [Mass/Vol] 16 mg/dL Normal 7-17 [facility] Comment on above: Performed By: #### C A19O, LUPUS #### The performing lab is in the report. #### NSEO #### [facility] #### HEMDF, LDH3, BMP3, MG3, PT, CEA2 #### [address] [place] #### B2GPM, B2GPA, B2GPG #### [address] Anion gap [Moles/Vol] 5 mmol/L Normal 3-13 [facility] Comment on above: Performed By: #### C A19O, LUPUS #### The performing lab is in the report. #### NSEO #### [facility] #### HEMDF, LDH3, BMP3, MG3, PT, CEA2 #### [address] [place] #### B2GPM, B2GPA, B2GPG #### [address] Bilirubin [Mass/Vol] 0.4 mg/dL Normal 0.2-1.3 [facility] Comment on above: Performed By: #### C A19O, LUPUS #### The performing lab is in the report. #### NSEO #### [facility] #### HEMDF, LDH3, BMP3, MG3, PT, CEA2 #### [address] [place] #### B2GPM, B2GPA, B2GPG #### [address] CO2 [Moles/Vol] 29 mmol/L Normal 22-30 [facility] Comment on above: Performed By: #### C A19O, LUPUS #### The performing lab is in the report. #### NSEO #### [facility] #### HEMDF, LDH3, BMP3, MG3, PT, CEA2 #### [facility] [address] [place] [address] #### B2GPM, B2GPA, B2GPG #### [address] Creatinine [Mass/Vol] 0.71 mg/dL Normal 0.52-1.25 [facility] Comment on above: Performed By: #### C A19O, LUPUS #### The performing lab is in the report. #### NSEO #### [facility] #### HEMDF, LDH3, BMP3, MG3, PT, CEA2 #### [facility] [address] [place] [address] #### B2GPM, B2GPA, B2GPG #### [address] eGFR OTHER > 90.0 Normal >60 [facility] Comment on above: Result Comment: KDIG O [...] HEMDF, LDH3, BMP3, MG3, PT, CEA2 #### [facility] [address] [place] [address] #### B2GPM, B2GPA, B2GPG #### [address] GFR/1.73 sq M.predicted among blacks MDRD (S/P/Bld) [Vol rate/Area] mL/min/{1.73_m2} Normal >60 [facility] Comment on above: Performed By: #### C A19O, LUPUS #### The performing lab is in the report. #### NSEO #### [facility] #### HEMDF, LDH3, BMP3, MG3, PT, CEA2 #### [address] [place], [place] #### B2GPM, B2GPA, B2GPG #### [address] Protein [Mass/Vol] 7.1 g/dL Normal 6.3-8.2 [facility] Comment on above: Performed By: #### C A19O, LUPUS #### The performing lab is in the report. #### NSEO #### [facility] #### HEMDF, LDH3, BMP3, MG3, PT, CEA2 #### [address] [place], [place] #### B2GPM, B2GPA, B2GPG #### [address] Potassium [Moles/Vol] 3.5 mmol/L Normal 3.5-5.1 [facility] Comment on above: Performed By: #### C A19O, LUPUS #### The performing lab is in the report. #### NSEO #### [facility] #### HEMDF, LDH3, BMP3, MG3, PT, CEA2 #### [place] [address] [place] [address] #### B2GPM, B2GPA, B2GPG #### [address] Sodium [Moles/Vol] 138 mmol/L Normal 135-145 [facility] Comment on above: Performed By: #### C A19O, LUPUS #### The performing lab is in the report. #### NSEO #### [facility] #### HEMDF, LDH3, BMP3, MG3, PT, CEA2 #### [place] [address] [place] #### B2GPM, B2GPA, B2GPG #### [address] Albumin [Mass/Vol] 3.7 g/dL Normal 3.5-5.0 [facility] Comment on above: Performed By: #### C A19O, LUPUS #### The performing lab is in the report. #### NSEO #### [facility] #### HEMDF, LDH3, BMP3, MG3, PT, CEA2 #### [address] [place] [place] [address] #### B2GPM, B2GPA, B2GPG #### [address] Chloride [Moles/Vol] 104 mmol/L Normal 98-107 [facility] Comment on above: Performed By: #### C A19O, LUPUS #### The performing lab is in the report. #### NSEO #### [facility] #### HEMDF, LDH3, BMP3, MG3, PT, CEA2 #### [place] [address] [place] [address] #### B2GPM, B2GPA, B2GPG #### [address] Comprehensive Metabolic Pane kiel 10-28-2021 Albumin [Mass/Vol] 3.7 g/dL 3.5 - 5.0 g/dL [facility] [employer] Work Phone: ALP (Bld) [Catalytic activity/Vol] 103 U/L 38 - 126 U/L [facility] Work Phone: ALT [Catalytic activity/Vol] 26 U/L 0 - 49 U/L [facility] Work Phone: Comment on above: The ALT test is perf ormed by an updated assay method. Please note that the reference intervals have been changed and are now sex specific. Anion gap [Moles/Vol] 5 mmol/L 3 - 13 mmol/L [employer] Work Phone: AST [Catalytic activity/Vol] 24 U/L 15 - 46 U/L [facility] Work Phone: Bilirubin [Mass/Vol] 0.4 mg/dL 0.2 - 1 .3 mg/dL [facility] Work Phone: Calcium [Mass/Vol] 9.1 mg/dL 8.4 - 10. 4 mg/dL [facility] Work Phone: [phone] Chloride [Moles/Vol] 104 mmol/L 98 - 10 7 mmol/L [facility] Work Phone: [phone] CO2 [Moles/Vol] 29 mmol/L 22 - 30 mmol/L [facility] Work Phone: Creatinine [Mass/Vol] 0.71 mg/dL 0.52 - 1.25 mg/dL [facility] Work Phone: EGFR IF NonAfrican Burkinan >90.0 >60 mL/min [facility] Work Phone: Comment on above: KDIGO [...] fraction] 7.1 g/dL 6.3 - 8.2 g/dL [facility] Work Phone: GFR/1.73 sq M.predicted among blacks MDRD (S/P/Bld) [Vol rate/Area] mL/min/{1.73_m2} >60 mL/min [facility] Work Phone: Glucose [Mass/Vol] 117 mg/dL High 70 - 100 mg/dL [facility] Work Phone: Interpretation and review of laboratory results Abnormal [facility] Work Phone: Potassium [Moles/Vol] 3.5 mmol/L 3.5 - 5.1 mmol/L [facility] Work Phone: Sodium [Moles/Vol] 138 mmol/L 135 - 145 mmol/L [facility] Work Phone: Urea nitrogen (BldV) [Mass/Vol] 16 mg/dL 7 - 17 mg/dL [facility] Work Phone: Test Performed by [facility], [address] [place], [place] [address] [facility] Work Phone: Hemogramon 10-28-2021 Erythrocyte distribution width (RBC) [Ratio] 17.1 % High 11.5-14.5 [facility] Comment on above: Performed By: #### C A19O, LUPUS #### The performing lab is in the report. #### NSEO #### [facility] #### HEMDF, LDH3, BMP3, MG3, PT, CEA2 #### [facility] [address] [place] [address] #### B2GPM, B2GPA, B2GPG #### [facility] [employer] [address] [address] Hematocrit (Bld) [Volume fraction] 33.4 % Low 40.0-52.0 [facility] Comment on above: Performed By: #### C A19O, LUPUS #### The performing lab is in the report. #### NSEO #### [facility] #### HEMDF, LDH3, BMP3, MG3, PT, CEA2 #### [facility] [address] [place] [address] #### B2GPM, B2GPA, B2GPG #### [address] Hemoglobin (Bld) [Mass/Vol] 11.0 g/dL Low 13.0-18.0 [facility] Comment on above: Performed By: #### C A19O, LUPUS #### The performing lab is in the report. #### NSEO #### [facility] #### HEMDF, LDH3, BMP3, MG3, PT, CEA2 #### [facility] [address] [facility] [facility] [address] [place], [place] #### B2GPM, B2GPA, B2GPG #### [address] MCH (RBC) [Entitic mass] 27.8 pg Normal 26.0-34.0 [facility] Comment on above: Performed By: #### C A19O, LUPUS #### The performing lab is in the report. #### NSEO #### [facility] #### HEMDF, LDH3, BMP3, MG3, PT, CEA2 #### [facility] [address] [facility] [facility] [address] [place], [place] #### B2GPM, B2GPA, B2GPG #### [address] MCHC 32.8 % Normal 32.0-36.0 [facility] Comment on above: Performed By: #### C A19O, LUPUS #### The performing lab is in the report. #### NSEO #### [facility] #### HEMDF, LDH3, BMP3, MG3, PT, CEA2 #### [facility] [address] [place] #### B2GPM, B2GPA, B2GPG #### [address] MCV (RBC) [Entitic vol] 84.8 fL Normal 80.0-98.0 [facility] Comment on above: Performed By: #### C A19O, LUPUS #### The performing lab is in the report. #### NSEO #### [facility] #### HEMDF, LDH3, BMP3, MG3, PT, CEA2 #### [place] [address] [place] #### B2GPM, B2GPA, B2GPG #### [address] Platelet mean volume (Bld) [Entitic vol] 8.3 fL Normal 7.4-12.4 [facility] Comment on above: Result Comment: MPV is a calculated measurement using platelet volume ratio. Performed By: #### C A19O, LUPUS #### The performing lab is in the report. #### NSEO #### [facility] #### HEMDF, LDH3, BMP3, MG3, PT, CEA2 #### [address] [place] #### B2GPM, B2GPA, B2GPG #### [address] Platelets (Bld) [#/Vol] 344 10*3/uL Normal 140-440 [facility] Comment on above: Performed By: #### C A19O, LUPUS #### The performing lab is in the report. #### NSEO #### [facility] #### HEMDF, LDH3, BMP3, MG3, PT, CEA2 #### [place] [address] [place] #### B2GPM, B2GPA, B2GPG #### [address] [place], [place] RBC (Bld) [#/Vol] 3.94 10*6/uL Low 4.40-5.90 [facility] Comment on above: Performed By: #### C A19O, LUPUS #### The performing lab is in the report. #### NSEO #### [facility] #### HEMDF, LDH3, BMP3, MG3, PT, CEA2 #### [facility] [address] [place] [address] #### B2GPM, B2GPA, B2GPG #### [address] WBC (Bld) [#/Vol] 10.0 10*3/uL Normal 3.6-10.7 [facility] Comment on above: Performed By: #### C A19O, LUPUS #### The performing lab is in the report. #### NSEO #### [facility] #### HEMDF, LDH3, BMP3, MG3, PT, CEA2 #### [facility] [address] [place] [address] #### B2GPM, B2GPA, B2GPG #### [address] Neuron Specific Enolaseon Neuron Specific Enolase 20.8 Normal [facility] Comment on above: Result Comment: Neur on Specific Enolase, Serum 20.8 ng/mL H (Ref Interval: <=12.7) NSE and Hgb are elevated in the specimen. The elevated NSE may be a result of hemolysis as NSE is expressed in red blood cells. Interpret results with caution. INTERPRETIVE INFORMATION: Neuron Specific Enolase in Serum This assay is performed using the [employer] NSE Kryptor Immunoassay. Results obtained with different assay methods or kits cannot be used interchangeably. Results cannot be interpreted as absolute evidence of the presence or absence of malignant disease. This test was developed and its performance characteristics determined by [employer]. It has not been cleared or approved by the [place] Food and Drug Administration. This test was performed in a CLIA certified laboratory and is intended for clinical purposes. Performed By: #### C OVAG #### [employer] [address] [place] [address] Neuron specific enolase (NSE )on 10-28-2021 Neuron Specific Enolase 20.8 [facility] Work Phone: Comment on above: Neuron Specific Enol ase, Serum 20.8 ng/mL H (Ref Interval: <=12.7) NSE and Hgb are elevated in the specimen. The elevated NSE may be a result of hemolysis as NSE is expressed in red blood cells. Interpret results with caution. INTERPRETIVE INFORMATION: Neuron Specific Enolase in Serum This assay is performed using the Curios[employer] NSE Kryptor Immunoassay. Results obtained with different assay methods or kits cannot be used interchangeably. Results cannot be interpreted as absolute evidence of the presence or absence of malignant disease. This test was developed and its performance characteristics determined by [employer]. It has not been cleared or approved by the US Food and Drug Administration. This test was performed in a CLIA certified laboratory and is intended for clinical purposes. 1 [facility] Work Phone: Prothrombin Timeon 2 INR 3.1 High 0.9-1.[address] [facility] [employer] [facility] Comment on above: Result Comment: Harry [...] HEMDF, LDH3, BMP3, MG3, PT, CEA2 #### [employer] [address] [place] [address] #### B2GPM, B2GPA, B2GPG #### [employer] [address] [place] [address] PT Coag (PPP) [Time] 30.8 s High 9.0-12.0 [facility] Comment on above: Result Comment: . Performed By: #### C A19O, LUPUS #### The performing lab is in the report. #### NSEO #### [facility] #### HEMDF, LDH3, BMP3, MG3, PT, CEA2 #### [facility] [address] [place] [address] #### B2GPM, B2GPA, B2GPG #### [facility] [address] [place] [address] Protime-INRon 10-28-2021 INR Coag (Bld) [Relative time] 3.1 {INR} High [facility] Work Phone: Comment on above: Recommended [...] Interpretation and review of laboratory results Abnormal [facility] Work Phone: PT Coag (PPP) [Time] 30.8 s High 9.0 - 12.0 s [facility] Work Phone: Comment on above: . Test Performed by [facility], [address], [place], [place] [id number] [place] [address] LAB [facility] Work Phone: MRI BRAIN WO CONTRASTon 10-06 Patient Name: ANDREW SIFUENTES Magnetic Res[facility] Imaging ACCESSION EXAM DATE/TIME PROCEDURE ORDERING PROVIDER [id number] 10/27/2021 13:14 EDT MRI Brain w/o Contrast UNASSIGNED, UNASSIGNED CPT code 16779 Reason For Exam (MRI Brain w/o Contrast) stroke Patient has JUKE BOX SERVICER shunt in place, please follow Radiology protocol [...] OSAMA Transcribed Date and Time: 10/27/2021 2:39 [facility] Venus Loyd MD - 10/27/2021 Patient Name: ANDREW SIFUENTES Magnetic Resonance Imaging ACCESSION EXAM DATE/TIME PROCEDURE ORDERING PROVIDER [id number] 10/27/2021 13:14 EDT MRI Brain w/o Contrast UNASSIGNED, UNASSIGNED CPT code 89498 Reason For Exam (MRI Brain w/o Contrast) stroke Patient has JUKE BOX SERVICER shunt in place, please follow Radiology protocol [...] Imaging ACCESSION EXAM DATE/TIME PROCEDURE ORDERING PROVIDER [id number] 10/27/2021 13:14 EDT MRI Brain w/o Contrast UNASSIGNED, UNASSIGNED CPT code 60999 Reason For Exam (MRI Brain w/o Contrast) stroke Patient has JUKE B[employer] SERVICER shunt in place, please follow Radiology protocol [...] Transcribed Date and Time: 10/27/2021 2:39 Normal [facility] Prothrombin Timeon 2 INR 2.1 High 0.9-1.1 [facility] Comment on above: Result Comment: Harry mmended [...] Infarction Performed By: #### P T #### [facility] [address] [place] [address] PT Coag (PPP) [Time] 21.9 s High 9.0-12.0 [facility] Work Phone: Comment on above: . Result Comment: . Performed By: #### P T #### [facility] [address] [place] [address] Protime-INRon 10-27-2021 INR Coag (Bld) [Relative time] 2.1 {INR} High [facility] Work Phone: Comment on above: Recommended [...] Interpretation and review of laboratory results Abnormal [facility] Work Phone: Test Performed by [facility], [address] [place], [place] [address] [facility] Work Phone: CT HEAD WO CONTRASTon 2021 Patient Name: ANDREW LARSEN Computed Tomography ACCESSION EXAM DATE/TIME PROCEDURE ORDERING PROVIDER [id number] 10/26/2021 11:[address] Head or Brain w/o JUNIE PINEDA, SARINA Contrast CPT code 24606 Reason For Exam (CT Head or Brain w/o Contrast) hydrocephalus. thank you Report CLINICAL INFORMATION: Hydrocephalus. Shunt. 3 mm axial cuts through the head are obtained without IV contrast. The examination is compared to a previous study dated 06/29/2014. FINDINGS: Old JUKE [employer] SERVICER shunt tubing is noted bilaterally. The new [...] are clear. IMPRESSION: 1. Old and new JUKE [employer] SERVICER shunt tubing. 2. No hydrocephalus. 3. Atrophy and evidence of small-vessel ischemic disease. 4. No CT evidence of an acute intracranial process. Report Dictated on --- Final --- Dictating Physician: MD SOLANO JEFFREY Signed Date and Time: 10/26/2021 11:42 am Signed by: MD SOLANO JEFFREY Transcribed Date and Time: 10/26/2021 11:43 [facility] Albert Solano MD - 10/26/2021 [id number] Computed Tomography ACCESSION EXAM DATE/TIME PROCEDURE ORDERING PROVIDER [id number] 10/26/2021 11:[address] Head or Brain w/o JUNIE PINEDA, ASRINA Contrast CPT code 94128 Reason For Exam (CT Head or Brain w/o Contrast) hydrocephalus. thank you Report CLINICAL INFORMATION: Hydrocephalus. Shunt. 3 mm axial cuts through the head are obtained without IV contrast. The examination is compared to a previous study dated 06/29/2014. FINDINGS: Old JUKE [employer] SERVICER shunt tubing is noted bilaterally. The new [...] are clear. IMPRESSION: 1. Old and new [employer]KE [employer] SERVICER shunt tubing. 2. No hydrocephalus. 3. Atrophy [...] Tomography ACCESSION EXAM DATE/TIME PROCEDURE ORDERING PROVIDER [id number] 10/26/2021 11:[address] Head or Brain w/o JUNIE PINEDA ALLISON Contrast CPT code 13769 Reason For Exam (CT Head or Brain w/o Contrast) hydrocephalus. thank you Report CLINICAL INFORMATION: Hydrocephalus. Shunt. 3 mm axial cuts through the head are obtained without IV contrast. The examination is compared to a previous study dated 06/29/2014. FINDINGS: Old JUKE [employer] SERVICER shunt tubing is noted bilaterally. The new [...] are clear. IMPRESSION: 1. Old and new JUKE [employer] SERVICER shunt tubing. 2. No hydrocephalus. 3. Atrophy and evidence of small-vessel ischemic disease. 4. No CT evidence of an acute intracranial process. Report Dictated on Final Dictating Physician: MD SOLANO JEFFREY Signed Date and Time: 10/26/2021 11:42 am Signed by: MD SOLANO JEFFREY Transcribed Date and Time: 10/26/2021 11:43 Normal [facility] EEG awake and asleepon 10-26 Bony Tompkins MD 10/26/2021 4:06 PM [facility] [address] [place] [id number] ROUTINE EEG REPORT Patient Name: Andrew Sifuentes : 1950 Date of Study: 10/26/2021 Duration Recorded: 23 minutes EEG#: [id number] TESTING ENGINEER: CASTRO PROVIDER REQUESTING STUDY: Dr. Barreto REASON FOR EXAM: seizures HISTORY: Andrew Sifuentes is a 71 y.o. male with history of obstructive hydrocephalus s/p JUKE [employer]OX SERVICER shunt in 1987, needing multiple revisions and [...] normal limits and both old and new JUKE BOX SERVICER shunt tubing noted. At present patient is awake, follows commands, was able to tell his name, and that he was in hospital but not oriented to time. 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 Per daughter patient had seizures in the past and also felt he had staring episodes this morning. Per daughter patient has been essentially bed bound in [place] since May 2021 but prior to that [...] study with video was carried out at [facility]. Scalp electrodes were positioned in person by an optometric technologist, following patient education, according to the 10-20 International system of electrode placement and maintained for integrity and quality of the recording. EEG data with video was recorded continuously and digitally stored. The optometric technologist reviewed all automated detections and manual [...] No normal vari (more content not included)... [employer] Work Phone: [employer] Work Phone: No Panel Informationon 10-26 Radiology Study observation (narrative) [facility] Work Phone: Prothrombin Timeon 2 INR 1.9 High 0.9-1.[address] [facility] [employer] [facility] Comment on above: Result Comment: Harry [...] Infarction Performed By: #### C OVAG #### [facility] [address] [place] [address] PT Coag (PPP) [Time] 19.7 s High 9.0-12.0 [facility] Comment on above: Result Comment: . Performed By: #### C OVAG #### [facility] [address] [place] [address] Protime-INRon 10-26-2021 INR Coag (Bld) [Relative time] 1.9 {INR} High [facility] Work Phone: Comment on above: Recommended [...] Interpretation and review of laboratory results Abnormal [facility] Work Phone: PT Coag (PPP) [Time] 19.7 s High 9.0 - 12.0 s [facility] Work Phone: Comment on above: . Test Performed by [facility], [address] [place] [address] [facility] Work Phone: CA 19-9on 10-25-2021 CA 19-9 17 U/mL Normal <=35 [facility] Work Phone: Comment on above: INTERPRETIVE [...] or absence of malignant disease. Performed By: [employer] [address] [place] [address] Grain Farmer: Quiana Castro MD Result Comment: INTE RPRETIVE [...] or absence of malignant disease. Performed By: [employer] [address] [place] [address] Grain Farmer: Quiana Castro MD Performed By: #### C OVAG #### [facility] [employer] [address] [place] [address] Cancer Antigen 19-9on 2021 [facility] Work Phone: Prothrombin Timeon INR 1.5 High 0.9-1.[address] [facility] [employer] Comment on above: Result Comment: Harry mmended [...] Infarction Performed By: #### P T #### [employer] [facility] [address] [place] [address] PT Coag (PPP) [Time] 15.6 s High 9.0-12.0 [facility] [employer] Comment on above: Result Comment: . Performed By: #### P T #### [facility] [employer] [facility] [address] [place] [address] Protime-INRon 10-25-2021 INR Coag (Bld) [Relative time] 1.5 {INR} High [facility] Work Phone: Comment on above: Recommended Anticoag [...] Interpretation and review of laboratory results Abnormal [facility] Work Phone: PT Coag (PPP) [Time] 15.6 s High 9.0 - 12.0 s [facility] Work Phone: Comment on above: . Test Performed by [facility], [address], [place], [place] [address] [facility] Work Phone: B-2 Glycoprotein (IGA)on Beta-2 Glyco 1 IgA <2.0 U/mL [facility] Work Phone: Comment on above: Interpretive Informa tion: Results equal to or greater than 20 U/mL = POSITIVE Results less than 20 U/mL = NEGATIVE B2 Glycoprotein I (IgM) Abon 10-24-2021 Beta-2 Glyco 1 IgM <1.5 U/mL [facility] Work Phone: Comment on above: Interpretive Informa tion: Results equal to or greater than 20 U/mL = POSITIVE Results less than 20 U/mL = NEGATIVE B2 Glycoprotein I Igg Abon 0 10-24-2021 Beta-2 Glyco 1 IgG <1.4 U/mL [facility] Work Phone: Comment on above: Interpretive Informa tion: Results equal to or greater than 20 U/mL = POSITIVE Results less than 20 U/mL = NEGATIVE Basic Metabolic Panelon 10-06 Anion gap [Moles/Vol] 8 mmol/L Normal 3-13 [facility] Comment on above: Performed By: #### C A19O, LUPUS #### The performing lab is in the report. #### NSEO #### [facility] #### HEMDF, LDH3, BMP3, MG3, PT, CEA2 #### [facility] [address] [place] [address] #### B2GPM, B2GPA, B2GPG #### [address] Calcium [Mass/Vol] 8.8 mg/dL Normal 8.4-10.4 [facility] Comment on above: Performed By: #### C A19O, LUPUS #### The performing lab is in the report. #### NSEO #### [facility] #### HEMDF, LDH3, BMP3, MG3, PT, CEA2 #### [address] [place] #### B2GPM, B2GPA, B2GPG #### [address] CO2 [Moles/Vol] 25 mmol/L Normal 22-30 [facility] Comment on above: Performed By: #### C A19O, LUPUS #### The performing lab is in the report. #### NSEO #### [facility] #### HEMDF, LDH3, BMP3, MG3, PT, CEA2 #### [address] [place] [address] #### B2GPM, B2GPA, B2GPG #### [address] Creatinine [Mass/Vol] 0.74 mg/dL Normal 0.52-1.25 [facility] Comment on above: Performed By: #### C A19O, LUPUS #### The performing lab is in the report. #### NSEO #### [facility] #### HEMDF, LDH3, BMP3, MG3, PT, CEA2 #### [address] [place] [address] #### B2GPM, B2GPA, B2GPG #### [address] eGFR OTHER > 90.0 Normal >60 [facility] Comment on above: Result Comment: KDIG O [...] tubular creatinine secretion. Performed By: #### C Sena9Elpidio LUPUS #### The performing lab is in the report. #### NSEO #### [facility] #### HEMDF, LDH3, BMP3, MG3, PT, CEA2 #### [facility] [employer] [facility] [address] [place] [address] #### B2GPM, B2GPA, B2GPG #### [facility] [employer] [address] [address] GFR/1.73 sq M.predicted among blacks MDRD (S/P/Bld) [Vol rate/Area] mL/min/{1.73_m2} Normal >60 [facility] Comment on above: Performed By: #### C A19O, LUPUS #### The performing lab is in the report. #### NSEO #### [facility] #### HEMDF, LDH3, BMP3, MG3, PT, CEA2 #### [facility] [employer] [facility] [address] [place] [address] #### B2GPM, B2GPA, B2GPG #### [address] [address] Glucose [Mass/Vol] 116 mg/dL High 70-100 [facility] Comment on above: Performed By: #### C A19O, LUPUS #### The performing lab is in the report. #### NSEO #### [facility] #### HEMDF, LDH3, BMP3, MG3, PT, CEA2 #### [facility] [address] [place] [address] #### B2GPM, B2GPA, B2GPG #### [address] Urea nitrogen [Mass/Vol] 19 mg/dL High 7-17 [facility] Comment on above: Performed By: #### C A19O, LUPUS #### The performing lab is in the report. #### NSEO #### [facility] #### HEMDF, LDH3, BMP3, MG3, PT, CEA2 #### [place] [address] [place] #### B2GPM, B2GPA, B2GPG #### [address] Chloride [Moles/Vol] 107 mmol/L Normal 98-107 [facility] Comment on above: Performed By: #### C A19O, LUPUS #### The performing lab is in the report. #### NSEO #### [facility] #### HEMDF, LDH3, BMP3, MG3, PT, CEA2 #### [facility] [address] [place] #### B2GPM, B2GPA, B2GPG #### [address] Potassium [Moles/Vol] 3.9 mmol/L Normal 3.5-5.1 [facility] Comment on above: Performed By: #### C A19O, LUPUS #### The performing lab is in the report. #### NSEO #### [facility] #### HEMDF, LDH3, BMP3, MG3, PT, CEA2 #### [facility] [address] [place] #### B2GPM, B2GPA, B2GPG #### [address] [address] Sodium [Moles/Vol] 140 mmol/L Normal 135-145 [facility] Comment on above: Performed By: #### C A19O, LUPUS #### The performing lab is in the report. #### NSEO #### [facility] #### HEMDF, LDH3, BMP3, MG3, PT, CEA2 #### [facility] [address] [place] [address] #### B2GPM, B2GPA, B2GPG #### [facility] [address] [place] [address] Anion gap [Moles/Vol] 8 mmol/L 3 - 13 mmol/L [facility] Calcium [Mass/Vol] 8.8 mg/dL 8.4 - 10. 4 mg/dL [facility] Chloride [Moles/Vol] 107 mmol/L 98 - 10 7 mmol/L [facility] CO2 [Moles/Vol] 25 mmol/L 22 - 30 mmol/L [facility] Creatinine [Mass/Vol] 0.74 mg/dL 0.52 - 1.25 mg/dL [facility] EGFR IF NonAfrican Burkinan >90.0 >60 mL/min [facility] Comment on above: KDIGO guidelines pro [...] 116 mg/dL High 70 - 100 mg/dL [facility] Interpretation and review of laboratory results Abnormal [facility] Potassium [Moles/Vol] 3.9 mmol/L 3.5 - 5.1 mmol/L [facility] Sodium [Moles/Vol] 140 mmol/L 135 - 145 mmol/L [facility] Urea nitrogen (BldV) [Mass/Vol] 19 mg/dL High 7 - 17 mg/dL [facility] Test Performed by [facility], [address] [place] [address] [facility] Beta-2 Glycoprotein I IgAon 10-24-2021 Beta-2 Glycoprotein I IgA < 2.0 Normal [facility] Comment on above: Result Comment: Inte rpretive Information: Results equal to or greater than 20 U/mL = POSITIVE Results less than 20 U/mL = NEGATIVE Performed By: #### C OVAG #### [facility] [address] [place] [address] Beta-2 Glycoprotein I IgGon 10-24-2021 Beta-2 Glycoprotein I IgG < 1.4 Normal [facility] Comment on above: Result Comment: Inte rpretive Information: Results equal to or greater than 20 U/mL = POSITIVE Results less than 20 U/mL = NEGATIVE Performed By: #### C OVAG #### [facility] [address] [place] [address] Beta-2 Glycoprotein I IgMon 10-24-2021 Beta-2 Glycoprotein I IgM < 1.5 Normal [facility] Comment on above: Result Comment: Inte rpretive Information: Results equal to or greater than 20 U/mL = POSITIVE Results less than 20 U/mL = NEGATIVE Performed By: #### C OVAG #### [facility] [address] [place] [address] No Panel Informationon 10-24 [facility] Test Performed by [facility], [address] [place] [id number] [place] [address] LAB [facility] Work Phone: PROTEIN C FUNCTIONALon [...] reference intervals for this test in the [facility] ([employer]). Performed by [facility], [address] [facility],[place] [id number] [email or web address], Quiana Castro MD - Lab. Director Protein C, Functionalon 10-06 Protein C, Functional 185 % High 83-168 [facility] Comment on above: Result Comment: INTE [...] reference intervals for this test in the [facility] ([employer]). Performed by [facility], [address] [facility] [place] [address] [email or web address], Quiana Castro MD - Lab. Director Performed By: #### P T #### [facility] [address] [place] [address] Protein S, Functionalon 10-06 Protein S, Functional 138 % Normal 66-143 [facility] Comment on above: INTERPRETIVE INFORMA TION: [...] reference intervals for this test in the [facility] ([employer]). Performed by [facility], [address] [facility],[place] [id number] [email or web address], Quiana Castro MD - Lab. Director Result [...] reference intervals for this test in the [facility] ([employer]). Performed by [facility], [address] [place] [id number] [email or web address], Quiana Castro MD - Lab. Director Performed By: #### P T #### [facility] [employer] [facility] [address] [place] [address] Prothrombin Timeon 2 INR 1.2 High 0.9-1.[address] [facility] [employer] [facility] Comment on above: Result Comment: Harry [...] is in the report. #### NSEO #### [facility] #### HEMDF, LDH3, BMP3, MG3, PT, CEA2 #### [facility] [employer] [facility] [address] [place] [address] #### B2GPM, B2GPA, B2GPG #### [facility] [employer] [address] [address] PT Coag (PPP) [Time] 12.6 s High 9.0-12.0 [facility] [employer] [facility] Comment on above: Result Comment: . Performed By: #### C A19O LUPUS #### The performing lab is in the report. #### NSEO #### [facility] #### HEMDF, LDH3, BMP3, MG3, PT, CEA2 #### [facility] [employer] [facility] [address] [place] [address] #### B2GPM, B2GPA, B2GPG #### [address] [address] Protime-INRon 10-24-2021 INR Coag (Bld) [Relative time] 1.2 {INR} High [facility] Comment on above: Recommended Anticoag ulant [...] Interpretation and review of laboratory results Abnormal [facility] PT Coag (PPP) [Time] 12.6 s High 9.0 - 12.0 s [facility] Comment on above: . Test Performed by [facility], [address] LAB [facility] Basic Metabolic Panelon 10-05 Anion gap [Moles/Vol] 10 mmol/L Normal 3-13 [facility] Comment on above: Performed By: #### C A19O, LUPUS #### The performing lab is in the report. #### NSEO #### [facility] #### HEMDF, LDH3, BMP3, MG3, PT, CEA2 #### [facility] [address] [place] [id number] #### B2GPM, B2GPA, B2GPG #### [address] [address] Calcium [Mass/Vol] 9.6 mg/dL Normal 8.4-10.4 [facility] Comment on above: Performed By: #### C A19O, LUPUS #### The performing lab is in the report. #### NSEO #### [facility] #### HEMDF, LDH3, BMP3, MG3, PT, CEA2 #### [facility] [address] [place] [id number] #### B2GPM, B2GPA, B2GPG #### [address] CO2 [Moles/Vol] 27 mmol/L Normal 22-30 [facility] Comment on above: Performed By: #### C A19O, LUPUS #### The performing lab is in the report. #### NSEO #### [facility] #### HEMDF, LDH3, BMP3, MG3, PT, CEA2 #### [facility] [address] [place] #### B2GPM, B2GPA, B2GPG #### [address] Glucose [Mass/Vol] 109 mg/dL High 70-100 [facility] Comment on above: Performed By: #### C A19O, LUPUS #### The performing lab is in the report. #### NSEO #### [facility] #### HEMDF, LDH3, BMP3, MG3, PT, CEA2 #### [place] [address] [address] [place] #### B2GPM, B2GPA, B2GPG #### [address] Urea nitrogen [Mass/Vol] 18 mg/dL High 7-17 [facility] Comment on above: Performed By: #### C A19O, LUPUS #### The performing lab is in the report. #### NSEO #### [facility] #### HEMDF, LDH3, BMP3, MG3, PT, CEA2 #### [place] [address] [place] [address] #### B2GPM, B2GPA, B2GPG #### [address] Creatinine [Mass/Vol] 0.82 mg/dL Normal 0.52-1.25 [facility] Comment on above: Performed By: #### C A19O, LUPUS #### The performing lab is in the report. #### NSEO #### [facility] #### HEMDF, LDH3, BMP3, MG3, PT, CEA2 #### [facility] [address] [place] [address] #### B2GPM, B2GPA, B2GPG #### [address] [address] GFR/1.73 sq M.predicted among blacks MDRD (S/P/Bld) [Vol rate/Area] mL/min/{1.73_m2} Normal >60 [facility] Comment on above: Performed By: #### C A19O, LUPUS #### The performing lab is in the report. #### NSEO #### [facility] #### HEMDF, LDH3, BMP3, MG3, PT, CEA2 #### [facility] [address] [place] [address] #### B2GPM, B2GPA, B2GPG #### [address] [address] GFR/1.73 sq M.predicted among non-blacks MDRD (S/P/Bld) [Vol rate/Area] 89.9 mL/min/{1.73_m2} Normal >60 [facility] Comment on above: Result Comment: KDIG O [...] HEMDF, LDH3, BMP3, MG3, PT, CEA2 #### [facility] [address] [place] [address] #### B2GPM, B2GPA, B2GPG #### [address] Chloride [Moles/Vol] 104 mmol/L Normal 98-107 [facility] Comment on above: Performed By: #### C A19O, LUPUS #### The performing lab is in the report. #### NSEO #### [facility] #### HEMDF, LDH3, BMP3, MG3, PT, CEA2 #### [address] [place] [address] #### B2GPM, B2GPA, B2GPG #### [address] Potassium [Moles/Vol] 3.9 mmol/L Normal 3.5-5.1 [facility] Comment on above: Performed By: #### C A19O, LUPUS #### The performing lab is in the report. #### NSEO #### [facility] #### HEMDF, LDH3, BMP3, MG3, PT, CEA2 #### [place] [address] [place] [address] #### B2GPM, B2GPA, B2GPG #### [address] Sodium [Moles/Vol] 142 mmol/L Normal 135-145 [facility] Comment on above: Performed By: #### C A19O, LUPUS #### The performing lab is in the report. #### NSEO #### [facility] #### HEMDF, LDH3, BMP3, MG3, PT, CEA2 #### [place] [address] [place] [address] #### B2GPM, B2GPA, B2GPG #### [facility] [address] [address] Anion gap [Moles/Vol] 10 mmol/L 3 - 13 mmol/L [facility] Work Phone: Calcium [Mass/Vol] 9.6 mg/dL 8.4 - 10. 4 mg/dL [facility] Work Phone: [phone] Chloride [Moles/Vol] 104 mmol/L 98 - 10 7 mmol/L [facility] Work Phone: [phone] CO2 [Moles/Vol] 27 mmol/L 22 - 30 mmol/L [facility] Work Phone: [phone] Creatinine [Mass/Vol] 0.82 mg/dL 0.52 - 1.25 mg/dL [facility] Work Phone: EGFR IF NonAfrican Burkinan 89.9 mL/min >60 [facility] Work Phone: [phone] Comment on above: KDIGO guidelines pro [...] MDRD (S/P/Bld) [Vol rate/Area] mL/min/{1.73_m2} >60 mL/min [facility] Work Phone: Glucose [Mass/Vol] 109 mg/dL High 70 - 100 mg/dL [facility] Work Phone: [phone] Interpretation and review of laboratory results Abnormal [facility] Work Phone: [phone] Potassium [Moles/Vol] 3.9 mmol/L 3.5 - 5.1 mmol/L [facility] [employer] Work Phone: [phone] Sodium [Moles/Vol] 142 mmol/L 135 - 145 mmol/L [facility] Work Phone: [phone] Urea nitrogen (BldV) [Mass/Vol] 18 mg/dL High 7 - 17 mg/dL [facility] [employer] Work Phone: [phone] CBC with Auto Differentialon 10-23-2021 Absolute Baso # 0.1 10*3/uL 0.0 - 0.2 10*3/uL [employer] Work Phone: [phone] Absolute Neut # 6.6 10*3/uL 1.8 - 7.0 10*3/uL [employer] Work Phone: [phone] Basophils/100 WBC (Bld) 1.1 % 0.0 - 2.0 % [employer] Work Phone: [phone] Eosinophils (Bld) [#/Vol] 0.4 10*3/uL 0.0 - 0.5 10*3/uL [employer] Work Phone: [phone] Eosinophils/100 WBC (Bld) 3.9 % 1.0 - 6.0 % [employer] Work Phone: [phone] Granulocytes/100 WBC (Bld) 64.0 % 40.0 - 80.0 % [employer] [facility] Work Phone: [phone] Hematocrit (Bld) [Volume fraction] 35.1 % Low 40.0 - 52.0 % [employer] Work Phone: [phone] Hemoglobin (Bld) [Mass/Vol] 11.6 g/dL Low 13.0 - 18.0 g/dL [facility] Work Phone: [phone] Interpretation and review of laboratory results Abnormal [employer] Work Phone: [phone] Lymphocytes (Bld) [#/Vol] 2.6 10*3/uL 1.0 - 4.3 10*3/uL [employer] [facility] Work Phone: [phone] Lymphocytes/100 WBC (Bld) 25.0 % 20.0 - 40.0 % [employer] [facility] Work Phone: [phone] MCH (RBC) [Entitic mass] 28.4 pg 26.0 - 34.0 pg [facility] Work Phone: 1() MCHC (RBC) [Mass/Vol] 33.1 % 32.0 - 36.0 % [facility] Work Phone: 1() MCV (RBC) [Entitic vol] 85.9 fL 80.0 - 98.0 fL [facility] Work Phone: 1() Monocytes (Bld) [#/Vol] 0.6 10*3/uL 0.0 - 0.8 10*3/uL [facility] Work Phone: [phone] Monocytes/100 WBC (Bld) 6.0 % 2.0 - 10.0 % [facility] Work Phone: 1() Platelet distribution width (Bld) [Ratio] 17.4 % High 11.5 - 14.5 % [facility] Work Phone: 1() Platelet mean volume (Bld) [Entitic vol] 8.1 fL 7.4 - 12.4 fL [facility] Work Phone: 1() Comment on above: MPV is a calculated measurement using platelet volume ratio. Platelets (Bld) [#/Vol] 450 10*3/uL High 140 - 440 10*3/uL [facility] Work Phone: 1() RBC (Bld) [#/Vol] 4.08 10*6/uL Low 4.40 - 5.9 0 10*6/uL [facility] Work Phone: () WBC (Bld) [#/Vol] 10.3 10*3/uL 3.6 - 10.7 10*3/uL [facility] Work Phone: 1() Test Performed by [facility] [employer] [facility], [address] [place], [place] [id number] [place] [address] LAB [facility] Work Phone: [phone] CEAon 10-23-2021 CEA 0.8 ng/mL 0.0 - 3.0 ng/mL [facility] Work Phone: [phone] Test Performed by [facility], [address] [place], [place] [id number] [place] [address] LAB [facility] Work Phone: [phone] Carcinoembryonic Agon 2021 Carcinoembryonic Ag. 0.8 ng/mL Normal 0.0-3.0 [facility] Comment on above: Performed By: #### C A19O, LUPUS #### The performing lab is in the report. #### NSEO #### [facility] #### HEMDF, LDH3, BMP3, MG3, PT, CEA2 #### [facility] [address] [place] [address] #### B2GPM, B2GPA, B2GPG #### [address] Hemogram w/ Autodiffon 10-23 Abs Baso Cnt 0.1 10*3/uL Normal 0.0-0.2 [facility] Comment on above: Performed By: #### C A19O, LUPUS #### The performing lab is in the report. #### NSEO #### [facility] #### HEMDF, LDH3, BMP3, MG3, PT, CEA2 #### [facility] [address] [place] [address] #### B2GPM, B2GPA, B2GPG #### [address] Abs Neutrophile Cnt 6.6 10*3/uL Normal 1.8-7.0 [facility] Comment on above: Performed By: #### C A19O, LUPUS #### The performing lab is in the report. #### NSEO #### [facility] #### HEMDF, LDH3, BMP3, MG3, PT, CEA2 #### [facility] [address] [place] [address] #### B2GPM, B2GPA, B2GPG #### [address] Basophils/100 WBC (Bld) 1.1 % Normal 0.0-2.0 [facility] Comment on above: Performed By: #### C A19O, LUPUS #### The performing lab is in the report. #### NSEO #### [facility] #### HEMDF, LDH3, BMP3, MG3, PT, CEA2 #### [facility] [address] [place] [address] #### B2GPM, B2GPA, B2GPG #### [address] Eosinophils (Bld) [#/Vol] 0.4 10*3/uL Normal 0.0-0.5 [facility] Comment on above: Performed By: #### C A19O, LUPUS #### The performing lab is in the report. #### NSEO #### [facility] #### HEMDF, LDH3, BMP3, MG3, PT, CEA2 #### [address] [place], [place] #### B2GPM, B2GPA, B2GPG #### [address] Eosinophils/100 WBC (Bld) 3.9 % Normal 1.0-6.0 [facility] Comment on above: Performed By: #### C A19O, LUPUS #### The performing lab is in the report. #### NSEO #### [facility] #### HEMDF, LDH3, BMP3, MG3, PT, CEA2 #### [address] [place], [place] #### B2GPM, B2GPA, B2GPG #### [address] Erythrocyte distribution width (RBC) [Ratio] 17.4 % High 11.5-14.5 [facility] Comment on above: Performed By: #### C A19O, LUPUS #### The performing lab is in the report. #### NSEO #### [facility] #### HEMDF, LDH3, BMP3, MG3, PT, CEA2 #### [address] [place] [address] #### B2GPM, B2GPA, B2GPG #### [address] Granulocytes/100 WBC (Bld) 64.0 % Normal 40.0-80.0 [facility] Comment on above: Performed By: #### C A19O, LUPUS #### The performing lab is in the report. #### NSEO #### [facility] #### HEMDF, LDH3, BMP3, MG3, PT, CEA2 #### [facility] [address] [place] #### B2GPM, B2GPA, B2GPG #### [address] Hematocrit (Bld) [Volume fraction] 35.1 % Low 40.0-52.0 [facility] Comment on above: Performed By: #### C A19O, LUPUS #### The performing lab is in the report. #### NSEO #### [facility] #### HEMDF, LDH3, BMP3, MG3, PT, CEA2 #### [facility] [address] [place] #### B2GPM, B2GPA, B2GPG #### [address] Hemoglobin (Bld) [Mass/Vol] 11.6 g/dL Low 13.0-18.0 [facility] Comment on above: Performed By: #### C A19O, LUPUS #### The performing lab is in the report. #### NSEO #### [facility] #### HEMDF, LDH3, BMP3, MG3, PT, CEA2 #### [facility] [address] [place] #### B2GPM, B2GPA, B2GPG #### [address] Lymphocytes (Bld) [#/Vol] 2.6 10*3/uL Normal 1.0-4.3 [facility] Comment on above: Performed By: #### C A19O, LUPUS #### The performing lab is in the report. #### NSEO #### [facility] #### HEMDF, LDH3, BMP3, MG3, PT, CEA2 #### [place] [address] [place] [address] #### B2GPM, B2GPA, B2GPG #### [address] Lymphocytes/100 WBC (Bld) 25.0 % Normal 20.0-40.0 [facility] Comment on above: Performed By: #### C A19O, LUPUS #### The performing lab is in the report. #### NSEO #### [facility] #### HEMDF, LDH3, BMP3, MG3, PT, CEA2 #### [address] [place] [address] #### B2GPM, B2GPA, B2GPG #### [address] MCH (RBC) [Entitic mass] 28.4 pg Normal 26.0-34.0 [facility] Comment on above: Performed By: #### C A19O, LUPUS #### The performing lab is in the report. #### NSEO #### [facility] #### HEMDF, LDH3, BMP3, MG3, PT, CEA2 #### [address] [place] [address] #### B2GPM, B2GPA, B2GPG #### [address] MCHC 33.1 % Normal 32.0-36.0 [facility] Comment on above: Performed By: #### C A19O, LUPUS #### The performing lab is in the report. #### NSEO #### [facility] #### HEMDF, LDH3, BMP3, MG3, PT, CEA2 #### [address] [place] #### B2GPM, B2GPA, B2GPG #### [address] MCV (RBC) [Entitic vol] 85.9 fL Normal 80.0-98.0 [facility] Comment on above: Performed By: #### C A19O, LUPUS #### The performing lab is in the report. #### NSEO #### [facility] #### HEMDF, LDH3, BMP3, MG3, PT, CEA2 #### [address] [place] #### B2GPM, B2GPA, B2GPG #### [address] Monocytes (Bld) [#/Vol] 0.6 10*3/uL Normal 0.0-0.8 [facility] Comment on above: Performed By: #### C A19O, LUPUS #### The performing lab is in the report. #### NSEO #### [facility] #### HEMDF, LDH3, BMP3, MG3, PT, CEA2 #### [address] [place] #### B2GPM, B2GPA, B2GPG #### [address] Monocytes/100 WBC (Bld) 6.0 % Normal 2.0-10.0 [facility] Comment on above: Performed By: #### C A19O, LUPUS #### The performing lab is in the report. #### NSEO #### [facility] #### HEMDF, LDH3, BMP3, MG3, PT, CEA2 #### [address] [place] #### B2GPM, B2GPA, B2GPG #### [address] Platelet mean volume (Bld) [Entitic vol] 8.1 fL Normal 7.4-12.4 [facility] Comment on above: Result Comment: MPV is a calculated measurement using platelet volume ratio. Performed By: #### C A19O, LUPUS #### The performing lab is in the report. #### NSEO #### [facility] #### HEMDF, LDH3, BMP3, MG3, PT, CEA2 #### [facility] [address] [place] [address] #### B2GPM, B2GPA, B2GPG #### [address] [address] Platelets (Bld) [#/Vol] 450 10*3/uL High 140-440 [facility] Comment on above: Performed By: #### C A19O, LUPUS #### The performing lab is in the report. #### NSEO #### [facility] #### HEMDF, LDH3, BMP3, MG3, PT, CEA2 #### [facility] [address] [place] [address] #### B2GPM, B2GPA, B2GPG #### [address] RBC (Bld) [#/Vol] 4.08 10*6/uL Low 4.40-5.90 [facility] Comment on above: Performed By: #### C A19O, LUPUS #### The performing lab is in the report. #### NSEO #### [facility] #### HEMDF, LDH3, BMP3, MG3, PT, CEA2 #### [facility] [address] [place] [address] #### B2GPM, B2GPA, B2GPG #### [address] [address] WBC (Bld) [#/Vol] 10.3 10*3/uL Normal 3.6-10.7 [facility] Comment on above: Performed By: #### C A19O, LUPUS #### The performing lab is in the report. #### NSEO #### [facility] #### HEMDF, LDH3, BMP3, MG3, PT, CEA2 #### [facility] [address] [place] [address] #### B2GPM, B2GPA, B2GPG #### [facility] [address] [place] [address] LDHon 10-23-2021 LDH 136 U/L Normal 120-246 [facility] Comment on above: Performed By: #### C A19O, LUPUS #### The performing lab is in the report. #### NSEO #### [facility] #### HEMDF, LDH3, BMP3, MG3, PT, CEA2 #### [facility] [address] [place] [address] #### B2GPM, B2GPA, B2GPG #### [address] [address] Lactate Dehydrogenaseon 10-05 LD 136 U/L 120 - 246 U/L [facility] Work Phone: MRI ABDOMEN WO CONTRASTon Patient Name: ANDREW SIFUENTES Magnetic Resonance Imaging ACCESSION EXAM DATE/TIME PROCEDURE ORDERING PROVIDER [id number] 10/23/2021 11:08 EDT MRI Abdomen w/o Contrast WING SRIVASTAVA CPT code 69766 Reason For Exam (MRI Abdomen w/o Contrast) [...] Imaging ACCESSION EXAM DATE/TIME PROCEDURE ORDERING PROVIDER [id number] 10/23/2021 11:08 EDT MRI Abdomen w/o Contrast WING SRIVASTAVA CPT code 17904 Reason For Exam (MRI Abdomen w/o Contrast) [...] VLADIMIR Transcribed Date and Time: 10/23/2021 4:36 [facility] Work Phone: MRI ABDOMEN WO CONTRASTOrder ed By: Unknown Result on 10-23-2021 [facility] MRI Abdomen w/o Contraston 0 10-23-2021 MRI Abdomen w/o Contrast Patient Name: ANDREW SIFUENTES Magnetic Resonance Imaging ACCESSION EXAM DATE/TIME PROCEDURE ORDERING PROVIDER [id number] 10/23/2021 11:08 EDT MRI Abdomen w/o Contrast SRIVASTAVA WING CPT code 82074 Reason For Exam (MRI Abdomen w/o Contrast) [...] Transcribed Date and Time: 10/23/2021 4:36 Normal [facility] Magnesiumon 10-23-2021 Magnesium [Mass/Vol] 2.1 mg/dL Normal 1.6-2.3 [facility] Comment on above: Performed By: #### C A19O, LUPUS #### The performing lab is in the report. #### NSEO #### [facility] #### HEMDF, LDH3, BMP3, MG3, PT, CEA2 #### [facility] [address] [place] [address] #### B2GPM, B2GPA, B2GPG #### [facility] [address] [place] [address] Magnesium [Mass/Vol] 2.1 mg/dL 1.6 - 2 .3 mg/dL [facility] Work Phone: No Panel Informationon 10-23 Test Performed by [facility], [address], [place], [place] [address] [facility] Work Phone: Prothrombin Timeon 2 INR 1.1 Normal 0.9-1.1 [facility] Comment on above: Result Comment: Harry mmended [...] HEMDF, LDH3, BMP3, MG3, PT, CEA2 #### [facility] [address] [place] [address] #### B2GPM, B2GPA, B2GPG #### [facility] [address] [place] [address] PT Coag (PPP) [Time] 12.2 s High 9.0-12.0 [facility] Comment on above: Result Comment: . Performed By: #### C A19O, LUPUS #### The performing lab is in the report. #### NSEO #### [facility] #### HEMDF, LDH3, BMP3, MG3, PT, CEA2 #### [facility] [address] [place] [address] #### B2GPM, B2GPA, B2GPG #### [facility] [address] [place] [address] Protime-INRon 10-23-2021 INR Coag (Bld) [Relative time] 1.1 {INR} [facility] Work Phone: Comment on above: Recommended [...] Interpretation and review of laboratory results Abnormal [facility] Work Phone: PT Coag (PPP) [Time] 12.2 s High 9.0 - 12.0 s [facility] Work Phone: Comment on above: . Test Performed by [facility], [address] [place] [address] [facility] Work Phone: Basic Metabolic Panelon -05 14-2021 Calcium [Mass/Vol] 8.9 mg/dL Normal 8.4-10.4 [facility] Comment on above: Performed By: #### P T #### [address] [place] [address] Glucose [Mass/Vol] 110 mg/dL High 70-100 [facility] Comment on above: Performed By: #### P T #### [place] [address] [place] [address] Urea nitrogen [Mass/Vol] 14 mg/dL Normal 7-17 [facility] Comment on above: Performed By: #### P T #### [place] [address] [place] [address] Anion gap [Moles/Vol] 7 mmol/L Normal 3-13 [facility] Comment on above: Performed By: #### P T #### [place] [address] [place] [address] CO2 [Moles/Vol] 26 mmol/L Normal 22-30 [facility] Comment on above: Performed By: #### P T #### [place] [address] [place] [address] Creatinine [Mass/Vol] 0.71 mg/dL Normal 0.52-1.25 [facility] Comment on above: Performed By: #### P T #### [facility] [address] [place] [address] eGFR OTHER > 90.0 Normal >60 [facility] Comment on above: Result Comment: KDIG O [...] secretion. Performed By: #### P T #### [facility] [address] [place] [address] GFR/1.73 sq M.predicted among blacks MDRD (S/P/Bld) [Vol rate/Area] mL/min/{1.73_m2} Normal >60 [facility] Comment on above: Performed By: #### P T #### [facility] [address] [place] [address] Potassium [Moles/Vol] 3.8 mmol/L Normal 3.5-5.1 [facility] Comment on above: Performed By: #### P T #### [facility] [address] [place] [address] Chloride [Moles/Vol] 106 mmol/L Normal 98-107 [facility] Comment on above: Performed By: #### P T #### [facility] [address] [place] [address] Sodium [Moles/Vol] 139 mmol/L Normal 135-145 [facility] Comment on above: Performed By: #### P T #### [facility] [address] [place] [address] Anion gap [Moles/Vol] 7 mmol/L 3 - 13 mmol/L [facility] Calcium [Mass/Vol] 8.9 mg/dL 8.4 - 10. 4 mg/dL [facility] Chloride [Moles/Vol] 106 mmol/L 98 - 10 7 mmol/L [facility] CO2 [Moles/Vol] 26 mmol/L 22 - 30 mmol/L [facility] Creatinine [Mass/Vol] 0.71 mg/dL 0.52 - 1.25 mg/dL [facility] EGFR IF NonAfrican Burkinan >90.0 >60 mL/min [facility] Comment on above: [...] - 10.7 10*3/uL [facility] Test Performed by [facility], [address], [place], [place] [address] [facility] CT Abdomen Pelvis Wo Umair johnston 10-22-2021 [facility]: [id number] Tomography ACCESSION EXAM DATE/TIME PROCEDURE ORDERING PROVIDER [id number] 10/22/2021 13:[address] Abdomen/Pelvis (No SRIVASTAVA, WING PO, No IV) CPT code 34334 Reason For Exam (CT Abdomen/Pelvis (No PO, [...] HARLAN Transcribed Date and Time: 10/22/2021 2:37 [facility] Humphrey Melton MD - 10/22/2021 Patient Name: ANDREW SIFUENTES Computed Tomography ACCESSION EXAM DATE/TIME PROCEDURE ORDERING PROVIDER [id number] 10/22/2021 13:[address] Abdomen/Pelvis (No SRIVASTAVA, WING PO, No IV) CPT code 61329 Reason For Exam (CT Abdomen/Pelvis (No PO, [...] Abdomen/Pelvis w/o Contrast Patient [facility]: [id number] Computed Tomography ACCESSION EXAM DATE/TIME PROCEDURE ORDERING PROVIDER [id number] 10/22/2021 13:[address] Abdomen/Pelvis (No SRIVASTAVA, WING PO, No IV) CPT code 13846 Reason For Exam (CT Abdomen/Pelvis (No PO, [...] Transcribed Date and Time: 10/22/2021 2:37 Normal [facility] Hemogram w/ Autodiffon 10-22 Abs Baso Cnt 0.1 10*3/uL Normal 0.0-0.2 [facility] Comment on above: Performed By: #### P T #### [facility] [address] [place] [address] Abs Neutrophile Cnt 6.0 10*3/uL Normal 1.8-7.0 [facility] Comment on above: Performed By: #### P T #### [facility] [address] [place] [address] Basophils/100 WBC (Bld) 1.0 % Normal 0.0-2.0 [facility] Comment on above: Performed By: #### P T #### [facility] [address] [place] [address] Eosinophils (Bld) [#/Vol] 0.3 10*3/uL Normal 0.0-0.5 [facility] Comment on above: Performed By: #### P T #### [facility] [address] [place] [address] Eosinophils/100 WBC (Bld) 3.0 % Normal 1.0-6.0 [facility] Comment on above: Performed By: #### P T #### [facility] [address] [place] [address] Erythrocyte distribution width (RBC) [Ratio] 17.1 % High 11.5-14.5 [facility] Comment on above: Performed By: #### P T #### [facility] [address] [place] [address] Granulocytes/100 WBC (Bld) 64.1 % Normal 40.0-80.0 [facility] Comment on above: Performed By: #### P T #### [facility] [address] [place] [address] Hematocrit (Bld) [Volume fraction] 33.4 % Low 40.0-52.0 [facility] Comment on above: Performed By: #### P T #### [facility] [address] [place] [address] Hemoglobin (Bld) [Mass/Vol] 10.9 g/dL Low 13.0-18.0 [facility] Comment on above: Performed By: #### P T #### [facility] [address] [place] [address] Lymphocytes (Bld) [#/Vol] 2.5 10*3/uL Normal 1.0-4.3 [facility] Comment on above: Performed By: #### P T #### [facility] [address] [place] [address] Lymphocytes/100 WBC (Bld) 26.3 % Normal 20.0-40.0 [facility] Comment on above: Performed By: #### P T #### [facility] [address] [place] [address] MCH (RBC) [Entitic mass] 28.2 pg Normal 26.0-34.0 [facility] Comment on above: Performed By: #### P T #### [facility] [address] [place] [address] MCHC 32.7 % Normal 32.0-36.0 [facility] Comment on above: Performed By: #### P T #### [facility] [address] [place] [address] MCV (RBC) [Entitic vol] 86.3 fL Normal 80.0-98.0 [facility] Comment on above: Performed By: #### P T #### [facility] [address] [place] [address] Monocytes (Bld) [#/Vol] 0.5 10*3/uL Normal 0.0-0.8 [facility] Comment on above: Performed By: #### P T #### [facility] [address] [place] [address] Monocytes/100 WBC (Bld) 5.6 % Normal 2.0-10.0 [facility] Comment on above: Performed By: #### P T #### [facility] [address] [place] [address] Platelet mean volume (Bld) [Entitic vol] 7.6 fL Normal 7.4-12.4 [facility] Comment on above: Result Comment: MPV is a calculated measurement using platelet volume ratio. Performed By: #### P T #### [facility] [address] [place] [address] Platelets (Bld) [#/Vol] 369 10*3/uL Normal 140-440 [facility] Comment on above: Performed By: #### P T #### [facility] [address] [place] [address] RBC (Bld) [#/Vol] 3.87 10*6/uL Low 4.40-5.90 [facility] Comment on above: Performed By: #### P T #### [facility] [address] [place] [address] WBC (Bld) [#/Vol] 9.4 10*3/uL Normal 3.6-10.7 [facility] Comment on above: Performed By: #### P T #### [facility] [address] [place] [address] Magnesiumon 10-22-2021 Magnesium [Mass/Vol] 2.0 mg/dL Normal 1.6-2.3 [facility] Comment on above: Performed By: #### P T #### [facility] [address] [place] [address] Magnesium [Mass/Vol] 2.0 mg/dL 1.6 - 2 .3 mg/dL [facility] No Panel Informationon 10-22 Radiology Study observation (narrative) [facility] Work Phone: Test Performed by [facility], [address] [place] [address] [facility] Prothrombin Timeon 2 INR 1.1 Normal 0.9-1.1 [facility] Comment on above: Result Comment: Harry mmended [...] HEMDF, LDH3, BMP3, MG3, PT, CEA2 #### [facility] [address] [place] [address] #### B2GPM, B2GPA, B2GPG #### [facility] [address] [address] PT Coag (PPP) [Time] 11.8 s Normal 9.0-12.0 [facility] Comment on above: Result Comment: . Performed By: #### C A19O, LUPUS #### The performing lab is in the report. #### NSEO #### [facility] #### HEMDF, LDH3, BMP3, MG3, PT, CEA2 #### [facility] [address] [place] [address] #### B2GPM, B2GPA, B2GPG #### [facility] [address] [address] Protime-INRon 10-22-2021 INR Coag (Bld) [Relative time] 1.1 {INR} [facility] Work Phone: Comment on above: Recommended [...] [Time] 11.8 s 9.0 - 12.0 s [facility] Work Phone: Comment on above: . Test Performed by [facility], [address], [place], [place] [address] [facility] Work Phone: VL Ankle Art Brachial Indice s Extremity Bilateralon 10-22-2021 [facility] Ankle Brachial Index Report Patient DO GurpreetB: 1950 Study 10/21/2021 Name: Andrew Gonzalez (71yrs) Date: Age: 71 Account: [id number] Gender: M Loc: 444W BP: Ordering Physician: Shruthi Malik Dairy Technician: Rody Cross RDMS, RVT Interpreting Physician: Carina Call Location: [facility] Indications: Foot wounds. Originally ordered as a full PVR. Ordering BREAST TRIMMER had to modify the order to ABIs [...] supine position. Images were obtained using a [employer] vascular ultrasound machine. Arterial pressure indices: + [...] electronically signed by Carina Call 10/22/2021 13:21 [facility] Carina Call MD - 10/22/2021 [facility] Ankle Brachial Index Report Patient RADHA Sifuentes: 1950 Study 10/21/2021 Name: Andrew Gonzalez (71yrs) Date: Age: 71 Account: [id number] Gender: M Loc: 444W BP: Ordering Physician: Shruthi Malik Dairy Technician: Rody Cross RDMS RVJamison Interpreting Physician: Carina Call Location: [facility] Indications: Foot wounds. Originally ordered as a full PVR. Ordering BREAST TRIMMER had to modify the order to ABIs [...] supine position. Images were obtained using a [employer] vascular ultrasound machine. Arterial pressure indices: + [...] electronically signed by Carina Call 10/22/2021 13:21 [employer] Work Phone: [facility] Phone: Basic Metabolic Panelon 10-05 Calcium [Mass/Vol] 9.1 mg/dL Normal 8.4-10.4 [facility] Comment on above: Performed By: #### C OVAG #### [facility] [address] [place] [address] Anion gap [Moles/Vol] 6 mmol/L Normal 3-13 [facility] Comment on above: Performed By: #### C OVAG #### [facility] [address] [place] [address] CO2 [Moles/Vol] 29 mmol/L Normal 22-30 [facility] Comment on above: Performed By: #### C OVAG #### [facility] [address] [place] [address] Creatinine [Mass/Vol] 0.90 mg/dL Normal 0.52-1.25 [facility] Comment on above: Performed By: #### C OVAG #### [facility] [address] [place] [address] GFR/1.73 sq M.predicted among blacks MDRD (S/P/Bld) [Vol rate/Area] mL/min/{1.73_m2} Normal >60 [facility] Comment on above: Performed By: #### C OVAG #### [facility] [address] [place] [address] GFR/1.73 sq M.predicted among non-blacks MDRD (S/P/Bld) [Vol rate/Area] 86.6 mL/min/{1.73_m2} Normal >60 [facility] Comment on above: Result Comment: KDIG O [...] secretion. Performed By: #### C OVAG #### [facility] [address] [place] [address] Glucose [Mass/Vol] 106 mg/dL High 70-100 [facility] Comment on above: Performed By: #### C OVAG #### [facility] [address] [place] [address] Urea nitrogen [Mass/Vol] 18 mg/dL High 7-17 [facility] Comment on above: Performed By: #### C OVAG #### [facility] [address] [place] [address] Chloride [Moles/Vol] 105 mmol/L Normal 98-107 [facility] Comment on above: Performed By: #### C OVAG #### [facility] [address] [place] [address] Potassium [Moles/Vol] 4.3 mmol/L Normal 3.5-5.1 [facility] Comment on above: Performed By: #### C OVAG #### [facility] [address] [place] [address] Sodium [Moles/Vol] 139 mmol/L Normal 135-145 [facility] Comment on above: Performed By: #### C OVAG #### [facility] [address] [place] [address] Anion gap [Moles/Vol] 6 mmol/L 3 - 13 mmol/L [facility] Calcium [Mass/Vol] 9.1 mg/dL 8.4 - 10. 4 mg/dL [facility] Chloride [Moles/Vol] 105 mmol/L 98 - 10 7 mmol/L [facility] CO2 [Moles/Vol] 29 mmol/L 22 - 30 mmol/L [facility] Creatinine [Mass/Vol] 0.9 mg/dL 0.52 - 1.25 mg/dL [facility] EGFR IF NonAfrican Burkinan 86.6 mL/min >60 [facility] Comment on above: KDIGO guidelines pro [...] - 17 mg/dL [facility] Test Performed by [facility], [address] LAB [facility] C-Reactive Proteinon 022 CRP [Mass/Vol] 33.5 mg/L High 0.0-9.9 [facility] Comment on above: Result Comment: . Performed By: #### P T #### [facility] [address] [place] [address] CRP [Mass/Vol] 33.5 mg/L High 0.0 - 9.9 mg/L [facility] Comment on above: . Interpretation and review of laboratory results Abnormal [facility] Test Performed by [facility], [address] LAB [facility] CR Calcaneus 2+ Views Lefton 10-21-2021 CR Calcaneus 2+ Views Left Patient Name: ANDREW SIFUENTES Diagnostic Radiology ACCESSION EXAM DATE/TIME PROCEDURE ORDERING PROVIDER [id number] 10/21/2021 15:30 EDT CR Calcaneus 2+ Views [id number] -SHRUTHI MALIK Left CPT code 95598 Reason For Exam (CR Calcaneus 2+ Views [...] Transcribed Date and Time: 10/21/2021 4:33 Normal [facility] CR Chest 1 View Frontalon CR Chest 1 View Frontal Patient [facility]: [id number] Diagnostic Radiology ACCESSION EXAM DATE/TIME PROCEDURE ORDERING PROVIDER [id number] 10/21/2021 08:16 EDT CR Chest 1 View Frontal [id number] -MAY CASH CPT code 47552 Reason For Exam (CR Chest 1 View [...] Transcribed Date and Time: 10/21/2021 8:33 Normal [facility] D-Dimer, Innovanceon 022 D-Dimer, Innovance 1.51 mg/L High <0.19-0.50 [facility] Comment on above: Result Comment: Inno saba D-Dimer values of <0.50 mg/L FEU can be used in combination with a pre-test probability model (e.g. Well's) to exclude pulmonary embolism (PE) disease, as well as an aid in the diagnosis of deep vein thrombosis (DVT). Performed By: #### P T #### [facility] [address] [place] [address] D-Dimer, Quantitativeon 10-05 D-Dimer, Quant 1.51 mg/L High <0.19 - 0.50 [facility] Comment on above: [facility] D-Dimer va lues of <0.50 mg/L FEU can be used in combination with a pre-test probability model (e.g. Well's) to exclude pulmonary embolism (PE) disease, as well as an aid in the diagnosis of deep vein thrombosis (DVT). Interpretation and review of laboratory results Abnormal [facility] Test Performed by [facility], [address] [place], [place] [address] [facility] ED Provider Noteon 2 ED Provider Note [facility] ED EMERGENCY DEPARTMENT ENCOUNTER Pt Name: [...] (HCC) ? Kidney stone ? Neuropathy ? [employer]KE [employer] (ventriculoperitoneal) shunt status SURGICAL HISTORY Past Surgical [...] and Family: Not on file ? Attends [employer] Services: Not on file ? Active Member [...] LUNGS: Respirations (more content not included)... Normal [facility] Hemogramon 10-21-2021 Erythrocyte distribution width (RBC) [Ratio] 17.3 % High 11.5-14.5 [facility] Comment on above: Performed By: #### C OVAG #### [facility] [address] [place] [address] Hematocrit (Bld) [Volume fraction] 33.6 % Low 40.0-52.0 [facility] Comment on above: Performed By: #### C OVAG #### [facility] [address] [place] [address] Hemoglobin (Bld) [Mass/Vol] 10.9 g/dL Low 13.0-18.0 [facility] Comment on above: Performed By: #### C OVAG #### [facility] [address] [place] [address] MCH (RBC) [Entitic mass] 27.8 pg Normal 26.0-34.0 [facility] Comment on above: Performed By: #### C OVAG #### [facility] [address] [place] [address] MCHC 32.5 % Normal 32.0-36.0 [facility] Comment on above: Performed By: #### C OVAG #### [facility] [address] [place] [address] MCV (RBC) [Entitic vol] 85.6 fL Normal 80.0-98.0 [facility] Comment on above: Performed By: #### C OVAG #### [facility] [address] [place] [address] Platelet mean volume (Bld) [Entitic vol] 7.7 fL Normal 7.4-12.4 [facility] Comment on above: Result Comment: MPV is a calculated measurement using platelet volume ratio. Performed By: #### C OVAG #### [facility] [address] [place] [address] Platelets (Bld) [#/Vol] 404 10*3/uL Normal 140-440 [facility] Comment on above: Performed By: #### C OVAG #### [facility] [address] [place] [address] RBC (Bld) [#/Vol] 3.93 10*6/uL Low 4.40-5.90 [facility] Comment on above: Performed By: #### C OVAG #### [facility] [address] [place] [address] WBC (Bld) [#/Vol] 11.6 10*3/uL High 3.6-10.7 [facility] Comment on above: Performed By: #### C OVAG #### [facility] [address] [place] [address] Hemogram (CBC)on 10-21-2021 Hematocrit (Bld) [Volume fraction] 33.6 % Low 40.0 - 52.0 % [facility] Hemoglobin (Bld) [Mass/Vol] 10.9 g/dL Low 13.0 - 18.0 g/dL [facility] Interpretation and review of laboratory results [...] - 10.7 10*3/uL [facility] Test Performed by [facility], [address] [place], [place] [id number] [place] [address] LAB [facility] NM LUNG VENT/PERFUSION (VQ)o n 10-21-2021 Patient Name: ANDREW SIFUENTES Nuclear Medicine ACCESSION EXAM DATE/TIME PROCEDURE ORDERING PROVIDER [id number] 10/21/2021 07:55 EDT [place] Pulmonary Perfusion [id number] AMBROSE MAY w/ Vent Aerosol CPT code 22180 A9567 Reason For Exam (NM Pulmonary Perfusion [...] JOHN Transcribed Date and Time: 10/21/2021 8:49 [facility] Henry Harvey MD - 10/21/2021 Patient Name: ANDREW SIFUENTES Nuclear Medicine ACCESSION EXAM DATE/TIME PROCEDURE ORDERING PROVIDER [id number] 10/21/2021 07:55 EDT [place] Pulmonary Perfusion [id number] BOGGSMAY w/ Vent Aerosol CPT code 11813 A9567 Reason For Exam (NM Pulmonary Perfusion [...] (VQ)O rdered By: Henry Harvey on 10-21-2021 [employer] Work Phone: NM Pulmonary Perfusion w/ Ve nt Aerosol or Gason 10-21-2021 NM Pulmonary Perfusion w/ Vent Aerosol or Gas Patient Name: ANDREW SIFUENTES Nuclear Medicine ACCESSION EXAM DATE/TIME PROCEDURE ORDERING PROVIDER [id number] 10/21/2021 07:55 EDT NM Pulmonary Perfusion [id number] MAY BOGGS w/ Vent Aerosol CPT code 46314 A9567 Reason For Exam (NM Pulmonary Perfusion [...] Transcribed Date and Time: 10/21/2021 8:49 Normal [facility] No Panel Informationon 10-21 Radiology Study observation (narrative) [facility] Work Phone: Prothrombin Timeon 2 INR 1.1 Normal 0.9-1.1 [facility] Comment on above: Result Comment: Harry mmended [...] Infarction Performed By: #### C OVAG #### [facility] [address] [place] [address] PT Coag (PPP) [Time] 11.5 s Normal 9.0-12.0 [facility] Comment on above: Result Comment: . Performed By: #### C OVAG #### [facility] [address] [place] [address] Protime-INRon 10-21-2021 INR Coag (Bld) [Relative time] 1.1 {INR} [facility] Comment on above: Recommended Anticoag ulant [...] [Time] 11.5 s 9.0 - 12.0 s [facility] Comment on above: . Test Performed by [facility], [address], [place], [place] [address] [facility] Retic Count(%)on 10-21-2021 Retic Count(%) 1.6 Normal [facility] Comment on above: Result Comment: [place] orn < 5% Adults 0.5 - 1.5% Performed By: #### P T #### [facility] [address] [place] [address] Reticulocyteson 10-21-[address] Pct 1.6 [facility] Comment on above: [place] < 5% Adults 0.5 - 1.5% Test Performed by [facility], [address], [place], [place] [address] [place] [address] LAB [facility] Sed Rateon 10-21-2021 Sed Rate 63 mm/h High 0-10 [facility] Comment on above: Performed By: #### P T #### [facility] [address] [place] [address] Sedimentation Rateon 022 Interpretation and review of laboratory results Abnormal [facility] Sed Rate 63 mm/h High 0 - 10 mm/h [facility] Test Performed by [facility], [address], [place], [place] [address] [place] [address] [facility] CARMELLA Upr/L Extremity Art 1 -2 Levelson 10-21-2021 VL CARMELLA Upr/L Extremity Art 1-2 Levels Patient Name: ANDREW SIFUENTES Ultrasound ACCESSION EXAM DATE/TIME PROCEDURE ORDERING PROVIDER [id number] 10/21/2021 16:12 EDT VL Upr/L Extremity Art [id number] -SHRUTHI MALIK 1-2 Levels CPT code 11613 Reason For Exam (VL Upr/L Extremity Art 1-2 Levels) both lower legs CARMELLA for both feet wounds. Report [facility] Ankle Brachial Index Report Patient Gurpreet : 1950 Study 10/21/2021 Name: Andrew Gonzalez (71yrs) Date: Age: 71 Account: [id number] Gender: M Loc: 444W BP: Ordering Physician: Shruthi Malik Dairy Technician: Rody Cross RDMS, RVT Interpreting Physician: Carina Call Location: [facility] Indications: Foot wounds. Originally ordered as a full PVR. Ordering BREAST TRIMMER had to modify the order to ABIs [...] supine position. Images were obtained using a [employer] vascular ultrasound machine. Arterial pressure indices: + [...] Final Dictated: 10/22/2021 1:21 pm Dictating Physician: CRAINA HENNESSY Signed Date and Time: 10/22/2021 1:21 pm Signed by: CARINA HENNESSY Cardiovascular ACCESSION EXAM DATE/TIME PROCEDURE [id number] 10/21/2021 16:12 EDT VL Upr/L Extremity Art 1-2 Levels CPT code 74101 Reason For Exam (VL Upr/L Extremity Art 1-2 Levels) both lower legs CARMELLA for both feet wounds. Report [facility] Ankle Brachial Index Report Patient RADHA Sifuentes: 1950 Study 10/21/2021 Name: Andrew Gonzalez (71yrs) Date: Age: 71 Account: [id number] Cardiovascular Report Gender: M Loc: 444W BP: Ordering Physician: Shruthi Malik Dairy Technician: Rody Cross RDMS, RVT Interpreting Physician: Carina Call Location: [facility] Indications: Foot wounds. Originally ordered as a full PVR. Ordering BREAST TRIMMER had to modify the order to ABIs [...] in th (more content not included)... Normal [facility] [employer] [facility] VL LOWER EXTREMITY BILATERAL VENOUS DUPLEXon 10-21-[address] [facility] Lower Extremity Venous Duplex Report Luís Sifuentes DOB: 1950 Study 10/21/2021 Name: Andrew Gonzalez (71yrs) Date: Age: 71 Account: [id number] Gender: M Loc: 444 BP: Ordering Physician: May Cash Dairy Technician: Rody Cross RDMS, RVT Interpreting Physician: Carina Call Location: [facility] Indications: Bilateral lower leg edema. CRITICAL [...] supine position. Images were obtained using a [employer] vascular ultrasound machine. Venous flow and imaging: [...] +-------- --------+ + (more content not included)... [facility] Carina Call MD - 10/21/2021 [facility] Lower Extremity Venous Duplex Report Patient DO GurpreetB: 1950 Study 10/21/2021 Name: Andrew Gonzalez () Date: Age: 71 Account: [id number] Gender: M Loc: 444 BP: Ordering Physician: May Cash Dairy Technician: Rody Cross RDMS, RVT Interpreting Physician: Carina Call Location: [facility] Indications: Bilateral lower leg edema. CRITICAL [...] supine position. Images were obtained using a [employer] vascular ultrasound machine. Venous flow and imaging: [...] + + +----- (more content not included)... [employer] Work Phone: VL LOWER EXTREMITY BILATERAL VENOUS DUPLEXOrdered By: Carina Call on 10-21-2021 [employer] Work Phone: VL Venous Duplex US Lower Ex t Bilateralon 10-21-2021 VL Venous Duplex US Lower Ext Bilateral Patient Name: ANDREW SIFUENTES Ultrasound ACCESSION EXAM DATE/TIME PROCEDURE ORDERING PROVIDER [id number] 10/21/2021 09:53 EDT VL Venous Duplex [place] [id number] -MAY CASH Lower Ext Bilateral CPT code 22412 Reason For Exam (VL Venous Duplex US Lower Ext Bilateral) bilateral sqwelling redness Report [facility] Lower Extremity Venous Duplex Report Patient DO GurpreetB: 1950 Study 10/21/2021 Name: Andrew Gonzalez (71yrs) Date: Age: 71 Account: [id number] Gender: M Loc: 444 BP: Ordering Physician: May Cash Dairy Technician: Rody Cross RDMS, RVT Interpreting Physician: Carina Call Location: [facility] Indications: Bilateral lower leg edema. CRITICAL [...] supine position. Images were obtained using a [employer] vascular ultrasound machine. Venous flow and imaging: [...] + + (more content not included)... Normal [employer] [facility] XR CALCANEUS LEFT (MIN 2 VIE WS)on 10-21-2021 Patient Name: ANDREW SIFUENTES Diagnostic Radiology ACCESSION EXAM DATE/TIME PROCEDURE ORDERING PROVIDER [id number] 10/21/2021 15:30 EDT CR Calcaneus 2+ Views [id number] -SHRUTHI MALIK Left CPT code 06250 Reason For Exam (CR Calcaneus 2+ Views [...] Radiology ACCESSION EXAM DATE/TIME PROCEDURE ORDERING PROVIDER [id number] 10/21/2021 15:30 EDT CR Calcaneus 2+ Views [id number] -SHRUTHI MALIK Left CPT code 17695 Reason For Exam (CR Calcaneus 2+ Views [...] 1 VWon 10-21-2021 [facility]: [id number] Radiology ACCESSION EXAM DATE/TIME PROCEDURE ORDERING PROVIDER [id number] 10/21/2021 08:16 EDT CR Chest 1 View Frontal [id number] MAY BOGGS CPT code 86813 Reason For Exam (CR Chest 1 View [...] OSAMA Transcribed Date and Time: 10/21/2021 8:33 [facility] Venus Loyd MD - 10/21/2021 Patient Name: [id number] Diagnostic Radiology ACCESSION EXAM DATE/TIME PROCEDURE ORDERING PROVIDER [id number] 10/21/2021 08:16 EDT CR Chest 1 View Frontal [id number] MAY BOGGS CPT code 12738 Reason For Exam (CR Chest 1 View [...] 1 VWOrdered By: Natalie Loyd on 10-21-2021 [facility] Work Phone: Basophil percentageon 2021 Chloride [Moles/Vol] 108 mmol/L 98-[address] [facility] Work Phone: Glucose [Mass/Vol] 93 mg/dL 74-106 [facility] Work Phone: Potassium [Moles/Vol] 3.9 mmol/L 3.5-5.1 [facility] Work Phone: Sodium [Moles/Vol] 140 mmol/L 136-145 [facility] Work Phone: WBC (Bld) [#/Vol] 8.7 10*3/uL 4.4-11.0 [facility] Work Phone: Blood erythrocytes count (nu mber/volume)on 10-20-2021 RBC (Bld) [#/Vol] 3.63 10*6/uL 4.6-6.2 [facility] Work Phone: Blood hemoglobin measurement (mass/volume)on 10-20-2021 Hemoglobin (Bld) [Mass/Vol] 10.1 g/dL 13.0-16.5 [facility] Work Phone: Blood platelet mean volumeon 10-20-2021 Platelet mean volume (Bld) [Entitic vol] 9.8 fL 6.2-12.0 [facility] Work Phone: Determination of erythrocyte mean corpuscular volume (MCV)on 10-20-2021 MCV (RBC) [Entitic vol] 90.1 fL 80-94 [facility] Work Phone: Hematocrit Auto (Bld) [Volum e fraction]on 10-20-2021 Hematocrit (Bld) [Volume fraction] 32.7 % 40-54 [facility] Work Phone: Laboratory - Chemistry and C hemistry - challengeon 10-20-2021 CO2 [Moles/Vol] 25.0 mmol/L 21.0-32.0 [facility] Work Phone: Urea nitrogen/Creatinine [Mass ratio] 17.4 mg/mg 10-20 [facility] Work Phone: Laboratory - Hematology and Cell countson 10-20-2021 Erythrocyte distribution width (RBC) [Entitic vol] 52.1 fL 35.1-43.9 [facility] Work Phone: Erythrocyte distribution width (RBC) [Ratio] 15.6 % 11.6-14.6 [facility] Work Phone: MCH (RBC) [Entitic mass] 27.8 pg 27.0-32.0 [facility] Work Phone: MCHC Auto (RBC) [Mass/Vol]on 10-20-2021 MCHC (RBC) [Mass/Vol] 30.9 g/dL 32-36 [facility] Work Phone: No Panel Informationon 10-20 Estimated GFR (MDRD) Amer 133 mL/min >60 [facility] Work Phone: Comment on above: GFR Calc Estimated GFR (MDRD) Non-Af Amer 110 mL/min >60 [facility] Work Phone: Comment on above: Non- GFR Calc Platelets bldon 10-20-2021 Platelets (Bld) [#/Vol] 404 10*3/uL 150-450 [facility] Work Phone: Serum or plasma calcium oral urement (mass/volume)on 10-20-2021 Calcium [Mass/Vol] 9.1 mg/dL 8.5-10.1 oste r [facility] [place] [place] Work Phone: Serum or plasma creatinine m easurement (mass/volume)on 10-20-2021 Creatinine [Mass/Vol] 0.75 mg/dL 0.70-1.30 [facility] [place] [place] Work Phone: Comment on above: The validity of the calculated GFR & GFRAA in patients over 70 years has not been determined. Clinical correlation is essential. Serum or plasma urea nitroge n measurement (mass/volume)on 10-20-2021 Urea nitrogen [Mass/Vol] 13 mg/dL 7-18 [facility] Work Phone: Thin prep Papanicolaou smear with manual screeningon 10-20-2021 Thin prep Papanicolaou smear with manual screening 7 5-15 [facility] Work Phone: CNPNon 10-17-2021 CNPN Normal [facility] Absolute lymphocyte counton 09-19-2021 Lymphocytes Auto (Unsp spec) [#/Vol] 1.74 10*3/uL 0.83-4.51 [facility] Work Phone: Basophil percentageon 2021 Basophils/100 WBC (Bld) 0.6 % 0-1 [facility] Work Phone: Bilirubin [Mass/Vol] 0.30 mg/dL 0.20-1.[address] [facility] Work Phone: Comment on above: For patients on eltr ombopag therapy, use of Dimension [place] TBIL is not recommended. Chloride [Moles/Vol] 105 mmol/L 98-107 [facility] Work Phone: Eosinophils/100 WBC (Bld) 3.5 % 0-5 [facility] Work Phone: Glucose [Mass/Vol] 91 mg/dL 74-106 [facility] Work Phone: [phone] Neutrophils (Bld) [#/Vol] 4.2 10*3/uL 2.0-7.7 [facility] Work Phone: Neutrophils/100 WBC (Bld) 62.6 % 47-70 [facility] Work Phone: Potassium [Moles/Vol] 3.8 mmol/L 3.5-5.1 [facility] Work Phone: Protein [Mass/Vol] 6.3 g/dL 6.4-8.2 [facility] Work Phone: [phone] Sodium [Moles/Vol] 139 mmol/L 136-145 [facility] Work Phone: WBC (Bld) [#/Vol] 6.6 10*3/uL 4.4-11.0 [facility] Work Phone: [phone] Blood erythrocytes count (nu mber/volume)on 09-19-2021 RBC (Bld) [#/Vol] 3.47 10*6/uL 4.6-6.2 [facility] Work Phone: Blood hemoglobin measurement (mass/volume)on 09-19-2021 Hemoglobin (Bld) [Mass/Vol] 10.2 g/dL 13.0-16.5 [facility] Work Phone: Blood lymphocytes/100 leukoc yteson 09-19-2021 Lymphocytes/100 WBC (Bld) 26.2 % 19-41 [facility] Work Phone: Blood monocytes/100 leukocyt eson 09-19-2021 Monocytes/100 WBC (Bld) 6.5 % 0-10 [facility] Work Phone: [phone] Blood platelet mean volumeon 09-19-2021 Platelet mean volume (Bld) [Entitic vol] 9.6 fL 6.2-12.0 [facility] Work Phone: Determination of erythrocyte mean corpuscular volume (MCV)on 09-19-2021 MCV (RBC) [Entitic vol] 94.8 fL 80-94 [facility] Work Phone: Hematocrit Auto (Bld) [Volum e fraction]on 09-19-2021 Hematocrit (Bld) [Volume fraction] 32.9 % 40-54 [facility] Work Phone: Laboratory - Chemistry and C hemistry - challengeon 09-19-2021 ALP [Catalytic activity/Vol] 109 U/L 45-117 [facility] Work Phone: ALT [Catalytic activity/Vol] 23 U/L 16-61 [facility] Work Phone: CO2 [Moles/Vol] 26.0 mmol/L 21.0-32.0 [facility] Work Phone: Globulin (S) [Mass/Vol] 3.5 g/dL 2.2-4.2 [facility] Work Phone: Urea nitrogen/Creatinine [Mass ratio] 15.3 mg/mg 10-20 [facility] Work Phone: Laboratory - Hematology and Cell countson 09-19-2021 Erythrocyte distribution width (RBC) [Entitic vol] 59.4 fL 35.1-43.9 [facility] Work Phone: Erythrocyte distribution width (RBC) [Ratio] 17.1 % 11.6-14.6 [facility] Work Phone: [phone] Immature granulocytes/100 WBC (Bld) 0.600 % 0.0-0.9 [facility] Work Phone: Comment on above: IG% - Immature Granu locytes (promyelocytes, myelocytes and metamyelocytes) > 1% indicates that a LEFT SHIFT is Present. MCH (RBC) [Entitic mass] 29.4 pg 27.0-32.0 [facility] Work Phone: Nucleated RBC/100 WBC (Bld) [Ratio] 0 % 0-5 [facility] Work Phone: MCHC Auto (RBC) [Mass/Vol]on 09-19-2021 MCHC (RBC) [Mass/Vol] 31.0 g/dL 32-36 [facility] Work Phone: No Panel Informationon 09-19 Estimated GFR (MDRD) Amer 175 mL/min >60 [facility] Work Phone: Comment on above: GFR Calc Estimated GFR (MDRD) Non-Af Amer 145 mL/min >60 [facility] Work Phone: Comment on above: Non- GFR Calc Platelets bldon 09-19-2021 Platelets (Bld) [#/Vol] 342 10*3/uL 150-450 [facility] Work Phone: Serum or plasma albumin oral urement (mass/volume)on 09-19-2021 Albumin [Mass/Vol] 2.8 g/dL 3.2-5.0 [facility] Work Phone: Serum or plasma albumin/glob ulin mass ratioon 09-19-2021 Albumin/Globulin [Mass ratio] 0.8 {ratio} 0.9-2.4 [facility] Work Phone: Serum or plasma calcium oral urement (mass/volume)on 09-19-2021 Calcium [Mass/Vol] 9.0 mg/dL 8.5-10.1 [facility] Work Phone: Serum or plasma creatinine m easurement (mass/volume)on 09-19-2021 Creatinine [Mass/Vol] 0.59 mg/dL 0.70-1.30 [facility] Work Phone: Comment on above: The validity of the calculated GFR & GFRAA in patients over 70 years has not been determined. Clinical correlation is essential. Serum or plasma urea nitroge n measurement (mass/volume)on 09-19-2021 Urea nitrogen [Mass/Vol] 9 mg/dL 7-18 [facility] Work Phone: Thin prep Papanicolaou smear with manual screeningon 09-19-2021 Thin prep Papanicolaou smear with manual screening 12 U/L 15-37 [facility] Work Phone: Thin prep Papanicolaou smear with manual screening 8 5-15 [facility] Work Phone: OPERATIVE NOon 08-22-2021 OPERATIVE NO Normal [facility] Basic metabolic 2000 panelon 08-19-2021 Anion gap [Moles/Vol] 10 mmol/L Normal 9-18 [facility] Comment on above: Order Comment: Speci men Type: BLOOD SPECIMENOrdering Facility: [facility] Address: [address] [place] [address] Performed By: #### 2 4321-2 ####[facility]ORYCLIA [id number] [place] [address] [place] Calcium [Mass/Vol] 8.6 mg/dL Normal 8.5-10.2 [facility] Comment on above: Order Comment: Speci men Type: BLOOD SPECIMENOrdering Facility: [facility] Address: [address] [place] [address] Performed By: #### 2 4321-2 ####[facility]ATORYCLIA [id number] [place] [address] [place] Chloride [Moles/Vol] 99 mmol/L Normal 97-105 [facility] Comment on above: Order Comment: Speci men Type: BLOOD SPECIMENOrdering Facility: [facility] Address: [address] [place] [address] Performed By: #### 2 4321-2 ####[facility]ORATORYCLIA [id number] [place] [address] [place] CO2 [Moles/Vol] 29 mmol/L Normal 22-30 [facility] Comment on above: Order Comment: Speci men Type: BLOOD SPECIMENOrdering Facility: [facility] Address: [address] [place] [address] Performed By: #### 2 4321-2 ####[facility]ORATORYCLIA [id number] [address] STATES OF [facility] Creatinine [Mass/Vol] 0.58 mg/dL Low 0.73-1.22 [facility] Comment on above: Order Comment: Shira feldman Type: BLOOD SPECIMENOrdering Facility: [facility] Address: [address] [place] [address] Performed By: #### 2 4321-2 ####[facility]ORATORYCLIA [id number] [address] ESTIMATED GLOMERULAR FILTRATION RATE 106 mL/min/1.73m??? Normal >=60 [facility] Comment on above: Order Comment: Shira feldman Type: BLOOD SPECIMENOrdering Facility: [facility] Address: [address] [place] [address] Result Comment: Luzmaria mated Glomerular Filtration Rate [...] actual GFR. Performed By: #### 2 4321-2 ####[facility]ATORYCLIA [id number] [address] Glucose [Mass/Vol] 101 mg/dL High 74-99 [facility] Comment on above: Order Comment: Shira feldman Type: BLOOD SPECIMENOrdering Facility: [facility] Address: [address] [address] Result Comment: The [place] Diabetes Association (ADA) provides guidance for cutoff [...] Standards of Medical Care in Diabetes 2016, [place] [employer]. Diabetes Care. 2016.39(Suppl 1). Performed By: #### 2 4321-2 ####[facility]ATORYCLIA [id number] [address] STATES OF [facility] Potassium [Moles/Vol] 3.5 mmol/L Low 3.7-5.1 [facility] Comment on above: Order Comment: Speci men Type: BLOOD SPECIMENOrdering Facility: [facility] Address: [address] [place] [address] Performed By: #### 2 4321-2 ####[facility]ATORYCLIA [id number] [address] Sodium [Moles/Vol] 138 mmol/L Normal 136-144 [facility] Comment on above: Order Comment: Shira feldman Type: BLOOD SPECIMENOrdering Facility: [facility] Address: [address] [place] [address] Performed By: #### 2 4321-2 ####[facility]ORYCLIA [id number] [address] Urea nitrogen [Mass/Vol] 11 mg/dL Normal 9-24 [facility] Comment on above: Order Comment: Johni francia Type: BLOOD SPECIMENOrdering Facility: [facility] Address: [address] [place] [address] Performed By: #### 2 4321-2 ####[facility]ATORYCLIA [id number] [address] [place] CASE MANAGEMon 08-19-2021 CASE MANAGEM Normal [facility] CBC W Auto Differential pane l (Bld)on 08-19-2021 Basophils (Bld) [#/Vol] 0.03 10*3/uL Normal <0.11 [facility] Comment on above: Order Comment: Johni men Type: BLOOD SPECIMENOrdering Facility: [facility] Address: [address] [address] Performed By: #### 5 7021-8 ####[facility]ORATORYCLIA [id number] [address] STATES [facility] Basophils/100 WBC (Bld) 0.4 % Normal [facility] Comment on above: Order Comment: Speci men Type: BLOOD SPECIMENOrdering Facility: [facility] Address: [address] [place] [address] Performed By: #### 5 7021-8 ####[facility]ORATORYCLIA [id number] [address] OF [facility] Differential cell count method Nom (Bld) Auto Normal [facility] Comment on above: Order Comment: Speci men Type: BLOOD SPECIMENOrdering Facility: [facility] Address: [address] [place] [address] Performed By: #### 5 7021-8 ####[facility]ORYCLIA [id number] [address] [place] Eosinophils (Bld) [#/Vol] 0.24 10*3/uL Normal <0.46 [facility] Comment on above: Order Comment: Speci men Type: BLOOD SPECIMENOrdering Facility: [facility] Address: [address] [place] [address] Performed By: #### 5 7021-8 ####[facility]ORATORYCLIA [id number] [address] [place] Eosinophils/100 WBC (Bld) 3.1 % Normal [facility] Comment on above: Order Comment: Speci men Type: BLOOD SPECIMENOrdering Facility: [facility] Address: [address] [place] [address] Performed By: #### 5 7021-8 ####[facility]ORATORYCLIA [id number] [address] [place] Erythrocyte distribution width (RBC) [Ratio] 17.5 % High 11.5-15.0 [facility] Comment on above: Order Comment: Speci men Type: BLOOD SPECIMENOrdering Facility: [facility] Address: [address] [place] [address] Performed By: #### 5 7021-8 ####[facility]ATORYCLIA [id number] [address] Hematocrit (Bld) [Volume fraction] 30.2 % Low 39.0-51.0 [facility] Comment on above: Order Comment: Speci men Type: BLOOD SPECIMENOrdering Facility: [facility] Address: [address] [place] [address] Performed By: #### 5 7021-8 ####[facility]ATORYCLIA [id number] [address] Hemoglobin (Bld) [Mass/Vol] 9.6 g/dL Low 13.0-17.0 [facility] Comment on above: Order Comment: Speci men Type: BLOOD SPECIMENOrdering Facility: [facility] Address: [address] [place] [address] Performed By: #### 5 7021-8 ####[facility]ORATORYCLIA [id number] [address] IMMATURE GRAN % 0.4 % Normal [facility] Comment on above: Order Comment: Speci men Type: BLOOD SPECIMENOrdering Facility: [facility] Address: [address] [place] [address] Performed By: #### 5 7021-8 ####[facility]ATORYCLIA [id number] [address] IMMATURE GRAN ABS 0.03 k/uL Normal <0.10 [facility] Comment on above: Order Comment: Speci men Type: BLOOD SPECIMENOrdering Facility: [facility] Address: [address] [place] [address] Performed By: #### 5 7021-8 ####[facility]ORATORYCLIA [id number] [address] Lymphocytes (Bld) [#/Vol] 1.71 10*3/uL Normal 1.00-4.00 [facility] Comment on above: Order Comment: Speci men Type: BLOOD SPECIMENOrdering Facility: [facility] Address: [address] [place] [address] Performed By: #### 5 7021-8 ####[facility]ORATORYCLIA [id number] [address] Lymphocytes/100 WBC (Bld) 22.2 % Normal [facility] Comment on above: Order Comment: Speci men Type: BLOOD SPECIMENOrdering Facility: [facility] Address: [address] [place] [address] Performed By: #### 5 7021-8 ####[facility]ORATORYCLIA [id number] [address] STATES OF [facility] MCH (RBC) [Entitic mass] 29.4 pg Normal 26.0-34.0 [facility] Comment on above: Order Comment: Speci men Type: BLOOD SPECIMENOrdering Facility: [facility] Address: [address] [place] [address] Performed By: #### 5 7021-8 ####[facility]ORATORYCLIA [id number] [address] MCHC (RBC) [Mass/Vol] 31.8 g/dL Normal 30.5-36.0 [facility] Comment on above: Order Comment: Speci men Type: BLOOD SPECIMENOrdering Facility: [facility] Address: [address] [place] [address] Performed By: #### 5 7021-8 ####[facility]ATORYCLIA [id number] [address] MCV (RBC) [Entitic vol] 92.6 fL Normal 80.0-100.0 [facility] Comment on above: Order Comment: Speci men Type: BLOOD SPECIMENOrdering Facility: [facility] Address: [address] [place] [address] Performed By: #### 5 7021-8 ####[facility] LABORATORYCLIA [id number] [place] [address] [place] Monocytes (Bld) [#/Vol] 0.50 10*3/uL Normal <0.87 [facility] Comment on above: Order Comment: Speci men Type: BLOOD SPECIMENOrdering Facility: [facility] Address: [address] [place] [address] Performed By: #### 5 7021-8 ####[facility] LABORATORYCLIA [id number] [place] [address] [place] Monocytes/100 WBC (Bld) 6.5 % Normal [facility] Comment on above: Order Comment: Speci men Type: BLOOD SPECIMENOrdering Facility: [facility] Address: [address] [place] [address] Performed By: #### 5 7021-8 ####[facility]ATORYCLIA [id number] [address] [place] Neutrophils (Bld) [#/Vol] 5.20 10*3/uL Normal 1.45-7.50 [facility] Comment on above: Order Comment: Speci men Type: BLOOD SPECIMENOrdering Facility: [facility] Address: [address] [place] [address] Performed By: #### 5 7021-8 ####[facility] LABORATORYCLIA [id number] [address] [place] Neutrophils/100 WBC (Bld) 67.4 % Normal [facility] Comment on above: Order Comment: Speci men Type: BLOOD SPECIMENOrdering Facility: [facility] Address: [address] [place] [address] Performed By: #### 5 7021-8 ####[facility]ORATORYCLIA [id number] [place] [address] [place] Nucleated RBC (Bld) [#/Vol] 10*3/uL Normal <0.01 [facility] Comment on above: Order Comment: Speci men Type: BLOOD SPECIMENOrdering Facility: [facility] Address: [address] [place] [address] Performed By: #### 5 7021-8 ####[facility]ORATORYCLIA [id number] [address] [place] Nucleated RBC/100 WBC (Bld) [Ratio] 0.0 /100 WBC Normal [facility] Comment on above: Order Comment: Speci men Type: BLOOD SPECIMENOrdering Facility: [facility] Address: [address] [place] [address] Performed By: #### 5 7021-8 ####[facility]ORATORYCLIA [id number] [place] [address] [place] Platelet mean volume (Bld) [Entitic vol] 8.9 fL Low 9.0-12.7 [facility] Comment on above: Order Comment: Speci men Type: BLOOD SPECIMENOrdering Facility: [facility] Address: [address] [place] [address] Performed By: #### 5 7021-8 ####[facility]ORATORYCLIA [id number] [place] [address] [place] Platelets (Bld) [#/Vol] 408 10*3/uL High 150-400 [facility] Comment on above: Order Comment: Speci men Type: BLOOD SPECIMENOrdering Facility: [facility] Address: [address] [place] [address] Performed By: #### 5 7021-8 ####[facility]ATORYCLIA [id number] [place] [address] [place] RBC (Bld) [#/Vol] 3.26 10*6/uL Low 4.20-6.00 [facility] Comment on above: Order Comment: Speci men Type: BLOOD SPECIMENOrdering Facility: [facility] Address: [address] [place] [address] Performed By: #### 5 7021-8 ####[facility]ORATORYCLIA [id number] [place] [address] [place] WBC (Bld) [#/Vol] 7.71 10*3/uL Normal 3.70-11.00 [facility] Comment on above: Order Comment: Speci men Type: BLOOD SPECIMENOrdering Facility: [facility] Address: [address] [place] [address] Performed By: #### 5 7021-8 ####[facility]ORATORYCLIA [id number] [place] [address] [place] CNDSon 08-19-2021 CNDS Normal [facility] CONSULT PROGon 08-19-2021 CONSULT PROG Normal [facility] THERAPY NTon 08-19-2021 THERAPY NT Normal [facility] Basic metabolic 2000 panelon 08-18-2021 Anion gap [Moles/Vol] 11 mmol/L Normal 9-18 [facility] Comment on above: Order Comment: Speci men Type: BLOOD SPECIMENOrdering Facility: [facility] Address: [address] [place] [address] Performed By: #### 2 4321-2 ####[facility]ORATORYCLIA [id number] [place] [address] [place] Calcium [Mass/Vol] 8.6 mg/dL Normal 8.5-10.2 [facility] Comment on above: Order Comment: Speci men Type: BLOOD SPECIMENOrdering Facility: [facility] Address: [address] [place] [address] Performed By: #### 2 4321-2 ####[facility]ORATORYCLIA [id number] [place] [address] [place] Chloride [Moles/Vol] 98 mmol/L Normal 97-105 [facility] Comment on above: Order Comment: Speci men Type: BLOOD SPECIMENOrdering Facility: [facility] Address: [address] [place] [address] Performed By: #### 2 4321-2 ####[facility]ORATORYCLIA [id number] [place] [address] [place] CO2 [Moles/Vol] 28 mmol/L Normal 22-30 [facility] Comment on above: Order Comment: Speci men Type: BLOOD SPECIMENOrdering Facility: [facility] Address: [address] [place] [address] Performed By: #### 2 4321-2 ####[facility]ORATORYCLIA [id number] [address] [place] Creatinine [Mass/Vol] 0.56 mg/dL Low 0.73-1.22 [facility] Comment on above: Order Comment: Speci men Type: BLOOD SPECIMENOrdering Facility: [facility] Address: [address] [place] [address] Performed By: #### 2 4321-2 ####[facility]KENA[facility] HOSPITALIA [id number] [address] ESTIMATED GLOMERULAR FILTRATION RATE 107 mL/min/1.73m??? Normal >=60 [facility] Comment on above: Order Comment: Speci men Type: BLOOD SPECIMENOrdering Facility: [facility] Address: [address] [place] [address] Result Comment: Luzmaria mated Glomerular Filtration Rate [...] actual GFR. Performed By: #### 2 4321-2 ####[facility]ORATORYCLIA [id number] [address] [place] Glucose [Mass/Vol] 113 mg/dL High 74-99 [facility] Comment on above: Order Comment: Shira feldman Type: BLOOD SPECIMENOrdering Facility: [facility] Address: [address] [place] [address] Result Comment: The [place] Diabetes [employer] (ADA) provides guidance for cutoff [...] Standards of Medical Care in Diabetes 2016, [place] [employer]. Diabetes Care. 2016.39(Suppl 1). Performed By: #### 2 4321-2 ####[facility]ORATORYCLIA [id number] [address] STATES OF [facility] Potassium [Moles/Vol] 3.5 mmol/L Low 3.7-5.1 [facility] Comment on above: Order Comment: Shira feldman Type: BLOOD SPECIMENOrdering Facility: [facility] Address: [address] [place] [address] Performed By: #### 2 4321-2 ####[facility]ORATORYCLIA [id number] [address] STATES [facility] Sodium [Moles/Vol] 137 mmol/L Normal 136-144 [facility] Comment on above: Order Comment: Shira feldman Type: BLOOD SPECIMENOrdering Facility: [facility] Address: [address] [place] [address] Performed By: #### 2 4321-2 ####[facility]ORATORYCLIA [id number] [address] STATES [facility] Urea nitrogen [Mass/Vol] 10 mg/dL Normal 9-24 [facility] Comment on above: Order Comment: Shira feldman Type: BLOOD SPECIMENOrdering Facility: [facility] Address: [address] [place] [address] Performed By: #### 2 4321-2 ####[facility]ORATORYCLIA [id number] [place] [address] [place] CBC W Auto Differential pane l (Bld)on 08-18-2021 Basophils (Bld) [#/Vol] 10*3/uL Normal <0.11 [facility] Comment on above: Order Comment: Speci men Type: BLOOD SPECIMENOrdering Facility: [facility] Address: [facility] [place] [address] Performed By: #### 5 7021-8 ####[facility] LABORATORYCLIA [id number] [address] STATES [facility] Basophils/100 WBC (Bld) 0.3 % Normal [facility] Comment on above: Order Comment: Speci men Type: BLOOD SPECIMENOrdering Facility: [facility] Address: [address] [place] [address] Performed By: #### 5 7021-8 ####[facility]ORATORYCLIA [id number] [address] Differential cell count method Nom (Bld) Auto Normal [facility] Comment on above: Order Comment: Speci men Type: BLOOD SPECIMENOrdering Facility: [facility] Address: [address] [place] [address] Performed By: #### 5 7021-8 ####[facility]ORATORYCLIA [id number] [address] STATES OF [facility] Eosinophils (Bld) [#/Vol] 0.37 10*3/uL Normal <0.46 [facility] Comment on above: Order Comment: Speci men Type: BLOOD SPECIMENOrdering Facility: [facility] Address: [address] [place] [address] Performed By: #### 5 7021-8 ####[facility]ORATORYCLIA [id number] [address] STATES [facility] Eosinophils/100 WBC (Bld) 4.8 % Normal [facility] Comment on above: Order Comment: Speci men Type: BLOOD SPECIMENOrdering Facility: [facility] Address: [address] [place] [address] Performed By: #### 5 7021-8 ####[facility]ATORYCLIA [id number] [address] [place] Erythrocyte distribution width (RBC) [Ratio] 17.5 % High 11.5-15.0 [facility] Comment on above: Order Comment: Speci men Type: BLOOD SPECIMENOrdering Facility: [facility] Address: [address] [place] [address] Performed By: #### 5 7021-8 ####[facility]ORATORYCLIA [id number] [address] OF [facility] Hematocrit (Bld) [Volume fraction] 30.2 % Low 39.0-51.0 [facility] Comment on above: Order Comment: Speci men Type: BLOOD SPECIMENOrdering Facility: [facility] Address: [address] [place] [address] Performed By: #### 5 7021-8 ####[facility]ORATORYCLIA [id number] [address] OF [facility] Hemoglobin (Bld) [Mass/Vol] 9.5 g/dL Low 13.0-17.0 [facility] Comment on above: Order Comment: Speci men Type: BLOOD SPECIMENOrdering Facility: [facility] Address: [address] [place] [address] Performed By: #### 5 7021-8 ####[facility]ORATORYCLIA [id number] [address] OF [facility] IMMATURE GRAN % 0.4 % Normal [facility] Comment on above: Order Comment: Speci men Type: BLOOD SPECIMENOrdering Facility: [facility] Address: [address] [place] [address] Performed By: #### 5 7021-8 ####[facility]ATORYCLIA [id number] [address] IMMATURE GRAN ABS 0.03 k/uL Normal <0.10 [facility] Comment on above: Order Comment: Speci men Type: BLOOD SPECIMENOrdering Facility: [facility] Address: [address] [place] [address] Performed By: #### 5 7021-8 ####[facility]ORATORYCLIA [id number] [address] OF [facility] Lymphocytes (Bld) [#/Vol] 1.85 10*3/uL Normal 1.00-4.00 [facility] Comment on above: Order Comment: Speci men Type: BLOOD SPECIMENOrdering Facility: [facility] Address: [address] [place] [address] Performed By: #### 5 7021-8 ####[facility]ATORYCLIA [id number] [address] Lymphocytes/100 WBC (Bld) 23.8 % Normal [facility] Comment on above: Order Comment: Speci men Type: BLOOD SPECIMENOrdering Facility: [facility] Address: [address] [place] [address] Performed By: #### 5 7021-8 ####[facility]ATORYCLIA [id number] [address] MCH (RBC) [Entitic mass] 29.5 pg Normal 26.0-34.0 [facility] Comment on above: Order Comment: Speci men Type: BLOOD SPECIMENOrdering Facility: [facility] Address: [address] [place] [address] Performed By: #### 5 7021-8 ####[facility]ATORYCLIA [id number] [address] [place] MCHC (RBC) [Mass/Vol] 31.5 g/dL Normal 30.5-36.0 [facility] Comment on above: Order Comment: Speci men Type: BLOOD SPECIMENOrdering Facility: [facility] Address: [address] [place] [address] Performed By: #### 5 7021-8 ####[facility]ATORYCLIA [id number] [address] MCV (RBC) [Entitic vol] 93.8 fL Normal 80.0-100.0 [facility] Comment on above: Order Comment: Speci men Type: BLOOD SPECIMENOrdering Facility: [facility] Address: [address] [place] [address] Performed By: #### 5 7021-8 ####[facility]ORATORYCLIA [id number] [address] [place] Monocytes (Bld) [#/Vol] 0.49 10*3/uL Normal <0.87 [facility] Comment on above: Order Comment: Speci men Type: BLOOD SPECIMENOrdering Facility: [facility] Address: [address] [place] [address] Performed By: #### 5 7021-8 ####[facility]ORATORYCLIA [id number] [address] [place] Monocytes/100 WBC (Bld) 6.3 % Normal [facility] Comment on above: Order Comment: Speci men Type: BLOOD SPECIMENOrdering Facility: [facility] Address: [address] [place] [address] Performed By: #### 5 7021-8 ####[facility]ORATORYCLIA [id number] [address] [place] Neutrophils (Bld) [#/Vol] 5.00 10*3/uL Normal 1.45-7.50 [facility] Comment on above: Order Comment: Speci men Type: BLOOD SPECIMENOrdering Facility: [facility] Address: [address] [place] [address] Performed By: #### 5 7021-8 ####[facility]ORATORYCLIA [id number] [address] [place] Neutrophils/100 WBC (Bld) 64.4 % Normal [facility] Comment on above: Order Comment: Speci men Type: BLOOD SPECIMENOrdering Facility: [facility] Address: [address] [place] [address] Performed By: #### 5 7021-8 ####[facility]ORATORYCLIA [id number] [place] [address] [place] Nucleated RBC (Bld) [#/Vol] 10*3/uL Normal <0.01 [facility] Comment on above: Order Comment: Speci men Type: BLOOD SPECIMENOrdering Facility: [facility] Address: [address] [place] [address] Performed By: #### 5 7021-8 ####[facility]ORATORYCLIA [id number] [address] OF [facility] Nucleated RBC/100 WBC (Bld) [Ratio] 0.0 /100 WBC Normal [facility] Comment on above: Order Comment: Speci men Type: BLOOD SPECIMENOrdering Facility: [facility] Address: [address] [place] [address] Performed By: #### 5 7021-8 ####[facility]ORATORYCLIA [id number] [address] [place] Platelet mean volume (Bld) [Entitic vol] 9.1 fL Normal 9.0-12.7 [facility] Comment on above: Order Comment: Speci men Type: BLOOD SPECIMENOrdering Facility: [facility] Address: [address] [place], [place] [address] Performed By: #### 5 7021-8 ####[facility]ORATORYCLIA [id number] [address] [place] Platelets (Bld) [#/Vol] 391 10*3/uL Normal 150-400 [facility] Comment on above: Order Comment: Speci men Type: BLOOD SPECIMENOrdering Facility: [facility] Address: [address] [place], [place] [address] Performed By: #### 5 7021-8 ####[facility]ORATORYCLIA [id number] [address] [place] RBC (Bld) [#/Vol] 3.22 10*6/uL Low 4.20-6.00 [facility] Comment on above: Order Comment: Speci men Type: BLOOD SPECIMENOrdering Facility: [facility] Address: [address] [place] [address] Performed By: #### 5 7021-8 ####[facility]ORATORYCLIA [id number] [place] [address] [place] WBC (Bld) [#/Vol] 7.76 10*3/uL Normal 3.70-11.00 [facility] Comment on above: Order Comment: Speci men Type: BLOOD SPECIMENOrdering Facility: [facility] Address: [address] [place] [address] Performed By: #### 5 7021-8 ####[facility]ORATORYCLIA [id number] [address] [place] CONSULT PROGon 08-18-2021 CONSULT PROG Normal [facility] CASE MANAGEMon 08-17-2021 CASE MANAGEM Normal [facility] CBC W Auto Differential pane l (Bld)on 08-17-2021 Basophils (Bld) [#/Vol] 0.04 10*3/uL Normal <0.11 [facility] Comment on above: Order Comment: Speci men Type: BLOOD SPECIMENOrdering Facility: [facility] Address: [address] [place] [address] Performed By: #### 5 7021-8 ####[facility]ORATORYCLIA [id number] [address] STATES [facility] Basophils/100 WBC (Bld) 0.5 % Normal [facility] Comment on above: Order Comment: Speci men Type: BLOOD SPECIMENOrdering Facility: [facility] Address: [address] [place] [address] Performed By: #### 5 7021-8 ####[facility]ORATORYCLIA [id number] [address] [place] Differential cell count method Nom (Bld) Auto Normal [facility] Comment on above: Order Comment: Speci men Type: BLOOD SPECIMENOrdering Facility: [facility] Address: [address] [place] [address] Performed By: #### 5 7021-8 ####[facility]ORATORYCLIA [id number] [place] [address] [place] Eosinophils (Bld) [#/Vol] 0.31 10*3/uL Normal <0.46 [facility] Comment on above: Order Comment: Speci men Type: BLOOD SPECIMENOrdering Facility: [facility] Address: [address] [place] [address] Performed By: #### 5 7021-8 ####[facility]ORATORYCLIA [id number] [address] OF [place] Eosinophils/100 WBC (Bld) 3.7 % Normal [facility] Comment on above: Order Comment: Speci men Type: BLOOD SPECIMENOrdering Facility: [facility] Address: [address] [place] [address] Performed By: #### 5 7021-8 ####[facility]ORATORYCLIA [id number] [address] STATES [facility] Erythrocyte distribution width (RBC) [Ratio] 17.4 % High 11.5-15.0 [facility] Comment on above: Order Comment: Speci men Type: BLOOD SPECIMENOrdering Facility: [facility] Address: [address] [place] [address] Performed By: #### 5 7021-8 ####[facility]ORATORYCLIA [id number] [address] [place] Hematocrit (Bld) [Volume fraction] 30.6 % Low 39.0-51.0 [facility] Comment on above: Order Comment: Speci men Type: BLOOD SPECIMENOrdering Facility: [facility] Address: [address] [place] [address] Performed By: #### 5 7021-8 ####[facility]ORATORYCLIA [id number] [address] [place] Hemoglobin (Bld) [Mass/Vol] 9.6 g/dL Low 13.0-17.0 [facility] Comment on above: Order Comment: Speci men Type: BLOOD SPECIMENOrdering Facility: [facility] Address: [address] [place] [address] Performed By: #### 5 7021-8 ####[facility]ORATORYCLIA [id number] [address] IMMATURE GRAN % 0.2 % Normal [facility] Comment on above: Order Comment: Speci men Type: BLOOD SPECIMENOrdering Facility: [facility] Address: [address] [place] [address] Performed By: #### 5 7021-8 ####[facility]ORATORYCLIA [id number] [address] IMMATURE GRAN ABS <0.03 Normal <0.10 [facility] Comment on above: Order Comment: Speci men Type: BLOOD SPECIMENOrdering Facility: [facility] Address: [address] [place] [address] Performed By: #### 5 7021-8 ####[facility]ORATORYCLIA [id number] [address] Lymphocytes (Bld) [#/Vol] 1.66 10*3/uL Normal 1.00-4.00 [facility] Comment on above: Order Comment: Speci men Type: BLOOD SPECIMENOrdering Facility: [facility] Address: [address] [place] [address] Performed By: #### 5 7021-8 ####[facility]ORATORYCLIA [id number] [address] Lymphocytes/100 WBC (Bld) 19.9 % Normal [facility] Comment on above: Order Comment: Speci men Type: BLOOD SPECIMENOrdering Facility: [facility] Address: [address] [place] [address] Performed By: #### 5 7021-8 ####[facility]ORATORYCLIA [id number] [address] MCH (RBC) [Entitic mass] 28.9 pg Normal 26.0-34.0 [facility] Comment on above: Order Comment: Speci men Type: BLOOD SPECIMENOrdering Facility: [facility] Address: [address] [place] [address] Performed By: #### 5 7021-8 ####[facility]ORATORYCLIA [id number] [address] [place] MCHC (RBC) [Mass/Vol] 31.4 g/dL Normal 30.5-36.0 [facility] Comment on above: Order Comment: Speci men Type: BLOOD SPECIMENOrdering Facility: [facility] Address: [address] [place] [address] Performed By: #### 5 7021-8 ####[facility]ORATORYCLIA [id number] [address] STATES OF [facility] MCV (RBC) [Entitic vol] 92.2 fL Normal 80.0-100.0 [facility] Comment on above: Order Comment: Speci men Type: BLOOD SPECIMENOrdering Facility: [facility] Address: [address] [place] [address] Performed By: #### 5 7021-8 ####[facility]ORATORYCLIA [id number] [address] [place] Monocytes (Bld) [#/Vol] 0.52 10*3/uL Normal <0.87 [facility] Comment on above: Order Comment: Speci men Type: BLOOD SPECIMENOrdering Facility: [facility] Address: [address] [place] [address] Performed By: #### 5 7021-8 ####[facility]ATORYCLIA [id number] [address] Monocytes/100 WBC (Bld) 6.2 % Normal [facility] Comment on above: Order Comment: Speci men Type: BLOOD SPECIMENOrdering Facility: [facility] Address: [address] [place] [address] Performed By: #### 5 7021-8 ####[facility] LABORATORYCLIA [id number] [address] [place] Neutrophils (Bld) [#/Vol] 5.78 10*3/uL Normal 1.45-7.50 [facility] Comment on above: Order Comment: Speci men Type: BLOOD SPECIMENOrdering Facility: [facility] Address: [address] [place] [address] Performed By: #### 5 7021-8 ####[facility] LABORATORYCLIA [id number] [address] Neutrophils/100 WBC (Bld) 69.5 % Normal [facility] Comment on above: Order Comment: Speci men Type: BLOOD SPECIMENOrdering Facility: [facility] Address: [address] [place] [address] Performed By: #### 5 7021-8 ####[facility] LABORATORYCLIA [id number] [address] [place] Nucleated RBC (Bld) [#/Vol] 10*3/uL Normal <0.01 [facility] Comment on above: Order Comment: Speci men Type: BLOOD SPECIMENOrdering Facility: [facility] Address: [address] [place] [address] Performed By: #### 5 7021-8 ####[facility] LABORATORYCLIA [id number] [address] [place] Nucleated RBC/100 WBC (Bld) [Ratio] 0.0 /100 WBC Normal [facility] Comment on above: Order Comment: Speci men Type: BLOOD SPECIMENOrdering Facility: [facility] Address: [address] [place] [address] Performed By: #### 5 7021-8 ####[facility] LABORATORYCLIA [id number] [address] [place] Platelet mean volume (Bld) [Entitic vol] 9.2 fL Normal 9.0-12.7 [facility] Comment on above: Order Comment: Speci men Type: BLOOD SPECIMENOrdering Facility: [facility] Address: [address] [place] [address] Performed By: #### 5 7021-8 ####[facility] LABORATORYCLIA [id number] [address] [place] Platelets (Bld) [#/Vol] 379 10*3/uL Normal 150-400 [facility] Comment on above: Order Comment: Speci men Type: BLOOD SPECIMENOrdering Facility: [facility] Address: [address] [place] [address] Performed By: #### 5 7021-8 ####[facility] LABORATORYCLIA [id number] [place] [address] [place] RBC (Bld) [#/Vol] 3.32 10*6/uL Low 4.20-6.00 [facility] Comment on above: Order Comment: Speci men Type: BLOOD SPECIMENOrdering Facility: [facility] Address: [address] [place] [address] Performed By: #### 5 7021-8 ####[facility] LABORATORYCLIA [id number] [address] WBC (Bld) [#/Vol] 8.33 10*3/uL Normal 3.70-11.00 [facility] Comment on above: Order Comment: Speci men Type: BLOOD SPECIMENOrdering Facility: [facility] Address: [address] [place] [address] Performed By: #### 5 7021-8 ####[facility] LABORATORYCLIA [id number] [address] OF [facility] CONSULT PROGon 08-17-2021 CONSULT PROG Normal [facility] NUTRITIONon 08-17-2021 NUTRITION Normal [facility] Basic metabolic 2000 panelon 08-16-2021 Anion gap [Moles/Vol] 14 mmol/L Normal 9-18 [facility] Comment on above: Order Comment: Speci men Type: BLOOD SPECIMENOrdering Facility: [facility] Address: [address] [place] [address] Performed By: #### 2 4321-2, 43719-5 ####[facility] LABORATORYCLIA [id number] OF [facility] Calcium [Mass/Vol] 8.8 mg/dL Normal 8.5-10.2 [facility] Comment on above: Order Comment: Speci men Type: BLOOD SPECIMENOrdering Facility: [facility] Address: [address] [place] [address] Performed By: #### 2 4320-2, ####[facility] LABORATORYCLIA [id number] [place] [address] [place] Chloride [Moles/Vol] 97 mmol/L Normal 97-105 [facility] Comment on above: Order Comment: Speci men Type: BLOOD SPECIMENOrdering Facility: [facility] Address: [address] [place] [address] Performed By: #### 2 2, ####[facility] LABORATORYCLIA [id number] [address] STATES OF [facility] CO2 [Moles/Vol] 27 mmol/L Normal 22-30 [facility] Comment on above: Order Comment: Speci men Type: BLOOD SPECIMENOrdering Facility: [facility] Address: [address] [place] [address] Performed By: #### 2 2, ####[facility] LABORATORYCLIA [id number] [address] [place] Creatinine [Mass/Vol] 0.50 mg/dL Low 0.73-1.22 [facility] Comment on above: Order Comment: Speci men Type: BLOOD SPECIMENOrdering Facility: [facility] Address: [address] [address] Performed By: #### 2 2, ####[facility] LABORATORYCLIA [id number] [address] ESTIMATED GLOMERULAR FILTRATION RATE 110 mL/min/1.73m??? Normal >=60 [facility] Comment on above: Order Comment: Speci men Type: BLOOD SPECIMENOrdering Facility: [facility] Address: [address] [place], [place] [id number] Result Comment: Luzmaria mated Glomerular Filtration Rate [...] actual GFR. Performed By: #### 2 43205-08, ####[facility] LABORATORYCLIA [id number] [place] [address] [place] Glucose [Mass/Vol] 101 mg/dL High 74-99 [facility] Comment on above: Order Comment: Shira feldman Type: BLOOD SPECIMENOrdering Facility: [facility] Address: [address] [place], [place] [address] Result Comment: The [place] Diabetes [employer] (ADA) provides guidance for cutoff [...] Standards of Medical Care in Diabetes 2016, [place] [employer]. Diabetes Care. 2016.39(Suppl 1). Performed By: #### 2 43205-08, ####[facility] LABORATORYCLIA [id number] [place] [address] [place] Potassium [Moles/Vol] 3.6 mmol/L Low 3.7-5.1 [facility] Comment on above: Order Comment: Shira feldman Type: BLOOD SPECIMENOrdering Facility: [facility] Address: [address] [id number] Performed By: #### 2 43205-08, ####[facility] LABORATORYCLIA [id number] [place] [address] [place] Sodium [Moles/Vol] 138 mmol/L Normal 136-144 [facility] Comment on above: Order Comment: Speci men Type: BLOOD SPECIMENOrdering Facility: [facility] Address: [address] [place] [address] Performed By: #### 2 4321-2, 63433-7 ####[facility] LABORATORYCLIA [id number] [place] [address] [place] Urea nitrogen [Mass/Vol] 11 mg/dL Normal 9-24 [facility] Comment on above: Order Comment: Speci men Type: BLOOD SPECIMENOrdering Facility: [facility] Address: [address] [place] [address] Performed By: #### 2 4321-2, ####[facility] LABORATORYCLIA [id number] [address] [place] CASE MANAGEMon 08-16-2021 CASE MANAGEM Normal [facility] CBC W Auto Differential pane l (Bld)on 08-16-2021 Basophils (Bld) [#/Vol] 0.03 10*3/uL Normal <0.11 [facility] Comment on above: Order Comment: Speci men Type: BLOOD SPECIMENOrdering Facility: [facility] Address: [address] [place] [address] Performed By: #### 5 7021-8 ####[facility] LABORATORYCLIA [id number] [address] [place] Basophils/100 WBC (Bld) 0.4 % Normal [facility] Comment on above: Order Comment: Speci men Type: BLOOD SPECIMENOrdering Facility: [facility] Address: [address] [place] [address] Performed By: #### 5 7021-8 ####[facility] LABORATORYCLIA [id number] [address] [place] Differential cell count method Nom (Bld) Auto Normal [facility] Comment on above: Order Comment: Speci men Type: BLOOD SPECIMENOrdering Facility: [facility] Address: [address] [address] Performed By: #### 5 7021-8 ####[facility] LABORATORYCLIA [id number] [address] Eosinophils (Bld) [#/Vol] 0.19 10*3/uL Normal <0.46 [facility] Comment on above: Order Comment: Speci men Type: BLOOD SPECIMENOrdering Facility: [facility] Address: [address] [address] Performed By: #### 5 7021-8 ####[facility] LABORATORYCLIA [id number] [address] Eosinophils/100 WBC (Bld) 2.5 % Normal [facility] Comment on above: Order Comment: Speci men Type: BLOOD SPECIMENOrdering Facility: [facility] Address: [address] [place] [address] Performed By: #### 5 7021-8 ####[facility] LABORATORYCLIA [id number] [address] Erythrocyte distribution width (RBC) [Ratio] 17.1 % High 11.5-15.0 [facility] Comment on above: Order Comment: Speci men Type: BLOOD SPECIMENOrdering Facility: [facility] Address: [address] [address] Performed By: #### 5 7021-8 ####[facility] LABORATORYCLIA [id number] [address] Hematocrit (Bld) [Volume fraction] 29.2 % Low 39.0-51.0 [facility] Comment on above: Order Comment: Speci men Type: BLOOD SPECIMENOrdering Facility: [facility] Address: [facility] [address] Performed By: #### 5 7021-8 ####[facility] LABORATORYCLIA [id number] [address] Hemoglobin (Bld) [Mass/Vol] 9.0 g/dL Low 13.0-17.0 [facility] Comment on above: Order Comment: Speci men Type: BLOOD SPECIMENOrdering Facility: [facility] Address: [address] [place] [address] Performed By: #### 5 7021-8 ####[facility] LABORATORYCLIA [id number] [address] IMMATURE GRAN % 0.3 % Normal [facility] Comment on above: Order Comment: Speci men Type: BLOOD SPECIMENOrdering Facility: [facility] Address: [address] [place] [address] Performed By: #### 5 7021-8 ####[facility] LABORATORYCLIA [id number] [address] IMMATURE GRAN ABS <0.03 Normal <0.10 [facility] Comment on above: Order Comment: Speci men Type: BLOOD SPECIMENOrdering Facility: [facility] Address: [address] [place] [address] Performed By: #### 5 7021-8 ####[facility] LABORATORYCLIA [id number] [address] Lymphocytes (Bld) [#/Vol] 1.41 10*3/uL Normal 1.00-4.00 [facility] Comment on above: Order Comment: Speci men Type: BLOOD SPECIMENOrdering Facility: [facility] Address: [address] [place] [address] Performed By: #### 5 7021-8 ####[facility] LABORATORYCLIA [id number] [address] Lymphocytes/100 WBC (Bld) 18.4 % Normal [facility] Comment on above: Order Comment: Speci men Type: BLOOD SPECIMENOrdering Facility: [facility] Address: [address] [place] [address] Performed By: #### 5 7021-8 ####[facility] LABORATORYCLIA [id number] [address] MCH (RBC) [Entitic mass] 28.0 pg Normal 26.0-34.0 [facility] Comment on above: Order Comment: Speci men Type: BLOOD SPECIMENOrdering Facility: [facility] Address: [address] [place] [address] Performed By: #### 5 7021-8 ####[facility] LABORATORYCLIA [id number] [address] MCHC (RBC) [Mass/Vol] 30.8 g/dL Normal 30.5-36.0 [facility] Comment on above: Order Comment: Speci men Type: BLOOD SPECIMENOrdering Facility: [facility] Address: [address] [place] [address] Performed By: #### 5 7021-8 ####[facility] LABORATORYCLIA [id number] [address] MCV (RBC) [Entitic vol] 91.0 fL Normal 80.0-100.0 [facility] Comment on above: Order Comment: Speci men Type: BLOOD SPECIMENOrdering Facility: [facility] Address: [address] [place] [address] Performed By: #### 5 7021-8 ####[facility] LABORATORYCLIA [id number] [address] Monocytes (Bld) [#/Vol] 0.47 10*3/uL Normal <0.87 [facility] Comment on above: Order Comment: Speci men Type: BLOOD SPECIMENOrdering Facility: [facility] Address: [address] [place] [address] Performed By: #### 5 7021-8 ####[facility] LABORATORYCLIA [id number] [address] Monocytes/100 WBC (Bld) 6.1 % Normal [facility] Comment on above: Order Comment: Speci men Type: BLOOD SPECIMENOrdering Facility: [facility] Address: [address] [place] [address] Performed By: #### 5 7021-8 ####[facility] LABORATORYCLIA [id number] [address] [place] Neutrophils (Bld) [#/Vol] 5.55 10*3/uL Normal 1.45-7.50 [facility] Comment on above: Order Comment: Speci men Type: BLOOD SPECIMENOrdering Facility: [facility] Address: [address] [place] [address] Performed By: #### 5 7021-8 ####[facility] LABORATORYCLIA [id number] [address] Neutrophils/100 WBC (Bld) 72.3 % Normal [facility] Comment on above: Order Comment: Speci men Type: BLOOD SPECIMENOrdering Facility: [facility] Address: [address] [place] [address] Performed By: #### 5 7021-8 ####[facility] LABORATORYCLIA [id number] [address] [place] Nucleated RBC (Bld) [#/Vol] 10*3/uL Normal <0.01 [facility] Comment on above: Order Comment: Speci men Type: BLOOD SPECIMENOrdering Facility: [facility] Address: [address] [place] [address] Performed By: #### 5 7021-8 ####[facility] LABORATORYCLIA [id number] [address] [place] Nucleated RBC/100 WBC (Bld) [Ratio] 0.0 /100 WBC Normal [facility] Comment on above: Order Comment: Speci men Type: BLOOD SPECIMENOrdering Facility: [facility] Address: [address] [place] [address] Performed By: #### 5 7021-8 ####[facility] LABORATORYCLIA [id number] [address] [place] Platelet mean volume (Bld) [Entitic vol] 9.3 fL Normal 9.0-12.7 [facility] Comment on above: Order Comment: Speci men Type: BLOOD SPECIMENOrdering Facility: [facility] Address: [address] [place], [place] [address] Performed By: #### 5 7021-8 ####[facility] LABORATORYCLIA [id number] [address] [place] Platelets (Bld) [#/Vol] 319 10*3/uL Normal 150-400 [facility] Comment on above: Order Comment: Speci men Type: BLOOD SPECIMENOrdering Facility: [facility] Address: [address] [place], [place] [address] Performed By: #### 5 7021-8 ####[facility] LABORATORYCLIA [id number] [place] [address] [place] RBC (Bld) [#/Vol] 3.21 10*6/uL Low 4.20-6.00 [facility] Comment on above: Order Comment: Speci men Type: BLOOD SPECIMENOrdering Facility: [facility] Address: [address] [place] [address] Performed By: #### 5 7021-8 ####[facility] LABORATORYCLIA [id number] [address] [place] WBC (Bld) [#/Vol] 7.67 10*3/uL Normal 3.70-11.00 [facility] Comment on above: Order Comment: Speci men Type: BLOOD SPECIMENOrdering Facility: [facility] Address: [address] [place], [place] [address] Performed By: #### 5 7021-8 ####[facility] LABORATORYCLIA [id number] [address] [place] Basophils (Bld) [#/Vol] 0.04 10*3/uL Normal <0.11 [facility] Comment on above: Order Comment: Speci men Type: BLOOD SPECIMENOrdering Facility: [facility] Address: [address] [place], [place] [address] Performed By: #### 5 7021-8 ####[facility] LABORATORYCLIA [id number] [address] STATES [facility] Basophils/100 WBC (Bld) 0.5 % Normal [facility] Comment on above: Order Comment: Speci men Type: BLOOD SPECIMENOrdering Facility: [facility] Address: [address] [place] [address] Performed By: #### 5 7021-8 ####[facility] LABORATORYCLIA [id number] [address] OF [facility] Differential cell count method Nom (Bld) Auto Normal [facility] Comment on above: Order Comment: Speci men Type: BLOOD SPECIMENOrdering Facility: [facility] Address: [address] [place] [address] Performed By: #### 5 7021-8 ####[facility] LABORATORYCLIA [id number] [address] [place] Eosinophils (Bld) [#/Vol] 0.19 10*3/uL Normal <0.46 [facility] Comment on above: Order Comment: Speci men Type: BLOOD SPECIMENOrdering Facility: [facility] Address: [address] [place] [address] Performed By: #### 5 7021-8 ####[facility] LABORATORYCLIA [id number] [address] Eosinophils/100 WBC (Bld) 2.5 % Normal [facility] Comment on above: Order Comment: Speci men Type: BLOOD SPECIMENOrdering Facility: [facility] Address: [address] [place] [address] Performed By: #### 5 7021-8 ####[facility] LABORATORYCLIA [id number] [address] Erythrocyte distribution width (RBC) [Ratio] 17.2 % High 11.5-15.0 [facility] Comment on above: Order Comment: Speci men Type: BLOOD SPECIMENOrdering Facility: [facility] Address: [address] [place] [address] Performed By: #### 5 7021-8 ####[facility] LABORATORYCLIA [id number] [address] Hematocrit (Bld) [Volume fraction] 29.5 % Low 39.0-51.0 [facility] Comment on above: Order Comment: Speci men Type: BLOOD SPECIMENOrdering Facility: [facility] Address: [address] [place] [address] Performed By: #### 5 7021-8 ####[facility]ORATORYCLIA [id number] [address] Hemoglobin (Bld) [Mass/Vol] 9.2 g/dL Low 13.0-17.0 [facility] Comment on above: Order Comment: Speci men Type: BLOOD SPECIMENOrdering Facility: [facility] Address: [address] [place] [address] Performed By: #### 5 7021-8 ####[facility]ORATORYCLIA [id number] [address] IMMATURE GRAN % 0.4 % Normal [facility] Comment on above: Order Comment: Speci men Type: BLOOD SPECIMENOrdering Facility: [facility] Address: [address] [place] [address] Performed By: #### 5 7021-8 ####[facility]ORATORYCLIA [id number] [address] IMMATURE GRAN ABS 0.03 k/uL Normal <0.10 [facility] Comment on above: Order Comment: Speci men Type: BLOOD SPECIMENOrdering Facility: [facility] Address: [address] [place] [address] Performed By: #### 5 7021-8 ####[facility]ORATORYCLIA [id number] [address] [place] Lymphocytes (Bld) [#/Vol] 1.50 10*3/uL Normal 1.00-4.00 [facility] Comment on above: Order Comment: Speci men Type: BLOOD SPECIMENOrdering Facility: [facility] Address: [address] [place] [address] Performed By: #### 5 7021-8 ####[facility]ORATORYCLIA [id number] [address] Lymphocytes/100 WBC (Bld) 19.7 % Normal [facility] Comment on above: Order Comment: Speci men Type: BLOOD SPECIMENOrdering Facility: [facility] Address: [address] [place] [address] Performed By: #### 5 7021-8 ####[facility] LABORATORYCLIA [id number] [address] STATES OF [facility] MCH (RBC) [Entitic mass] 28.3 pg Normal 26.0-34.0 [facility] Comment on above: Order Comment: Speci men Type: BLOOD SPECIMENOrdering Facility: [facility] Address: [address] [place] [address] Performed By: #### 5 7021-8 ####[facility]ORATORYCLIA [id number] [address] MCHC (RBC) [Mass/Vol] 31.2 g/dL Normal 30.5-36.0 [facility] Comment on above: Order Comment: Speci men Type: BLOOD SPECIMENOrdering Facility: [facility] Address: [address] [place] [address] Performed By: #### 5 7021-8 ####[facility]ORATORYCLIA [id number] [address] [place] MCV (RBC) [Entitic vol] 90.8 fL Normal 80.0-100.0 [facility] Comment on above: Order Comment: Speci men Type: BLOOD SPECIMENOrdering Facility: [facility] Address: [address] [place] [address] Performed By: #### 5 7021-8 ####[facility]ORATORYCLIA [id number] [address] [place] Monocytes (Bld) [#/Vol] 0.49 10*3/uL Normal <0.87 [facility] Comment on above: Order Comment: Speci men Type: BLOOD SPECIMENOrdering Facility: [facility] Address: [address] [address] Performed By: #### 5 7021-8 ####[facility] LABORATORYCLIA [id number] [place] [address] [place] Monocytes/100 WBC (Bld) 6.4 % Normal [facility] Comment on above: Order Comment: Speci men Type: BLOOD SPECIMENOrdering Facility: [facility] Address: [address] [place] [address] Performed By: #### 5 7021-8 ####[facility]ORATORYCLIA [id number] [address] [place] Neutrophils (Bld) [#/Vol] 5.38 10*3/uL Normal 1.45-7.50 [facility] Comment on above: Order Comment: Speci men Type: BLOOD SPECIMENOrdering Facility: [facility] Address: [address] [place] [address] Performed By: #### 5 7021-8 ####[facility]ORATORYCLIA [id number] [address] [place] Neutrophils/100 WBC (Bld) 70.5 % Normal [facility] Comment on above: Order Comment: Speci men Type: BLOOD SPECIMENOrdering Facility: [facility] Address: [address] [address] Performed By: #### 5 7021-8 ####[facility] LABORATORYCLIA [id number] [place] [address] [place] Nucleated RBC (Bld) [#/Vol] 10*3/uL Normal <0.01 [facility] Comment on above: Order Comment: Speci men Type: BLOOD SPECIMENOrdering Facility: [facility] Address: [address] [place] [address] Performed By: #### 5 7021-8 ####[facility] LABORATORYCLIA [id number] [address] [place] Nucleated RBC/100 WBC (Bld) [Ratio] 0.0 /100 WBC Normal [facility] Comment on above: Order Comment: Speci men Type: BLOOD SPECIMENOrdering Facility: [facility] Address: [address] [place] [address] Performed By: #### 5 7021-8 ####[facility] LABORATORYCLIA [id number] [address] [place] Platelet mean volume (Bld) [Entitic vol] 9.0 fL Normal 9.0-12.7 [facility] Comment on above: Order Comment: Speci men Type: BLOOD SPECIMENOrdering Facility: [facility] Address: [address] [place] [address] Performed By: #### 5 7021-8 ####[facility]ORATORYCLIA [id number] [address] [place] Platelets (Bld) [#/Vol] 316 10*3/uL Normal 150-400 [facility] Comment on above: Order Comment: Speci men Type: BLOOD SPECIMENOrdering Facility: [facility] Address: [address] [place] [address] Performed By: #### 5 7021-8 ####[facility]ORATORYCLIA [id number] [address] [place] RBC (Bld) [#/Vol] 3.25 10*6/uL Low 4.20-6.00 [facility] Comment on above: Order Comment: Speci men Type: BLOOD SPECIMENOrdering Facility: [facility] Address: [address] [place] [address] Performed By: #### 5 7021-8 ####[facility]ORATORYCLIA [id number] [address] [place] WBC (Bld) [#/Vol] 7.63 10*3/uL Normal 3.70-11.00 [facility] Comment on above: Order Comment: Speci men Type: BLOOD SPECIMENOrdering Facility: [facility] Address: [address] [place] [address] Performed By: #### 5 7021-8 ####[facility] LABORATORYCLIA [id number] [place] [address] [place] Basophils (Bld) [#/Vol] Normal <0.11 [facility] Comment on above: Order Comment: Speci men Type: BLOOD SPECIMENOrdering Facility: [facility] Address: [address] [place] [address] Result Comment: Carolina Owens RN informed lab after results autoverified that she rd on the wrong patient. Lab to credit. Nurse to redraw on correct patient.Corrected result: Previously reported as 0.04 k/uL on 08/16/2021 at 4:44 AM EDT. Performed By: #### 5 7021-8 ####[facility]ORATORYCLIA [id number] [address] [place] Basophils/100 WBC (Bld) Normal [facility] Comment on above: Order Comment: Speci men Type: BLOOD SPECIMENOrdering Facility: [facility] Address: [address] [place] [address] Result Comment: Tati ected result: Previously reported as 0.4 % on 08/16/2021 at 4:44 AM EDT. Performed By: #### 5 7021-8 ####[facility]ORATORYCLIA [id number] [address] [place] CBC W Differential panel, method unspecified (Bld) Normal [facility] Comment on above: Order Comment: Speci francia Type: BLOOD SPECIMENOrdering Facility: [facility] Address: [address] [place] [address] Result Comment: Carolina Owens RN informed lab after results autoverified that she rd on the wrong patient. Lab to credit. Nurse to redraw on correct patient. Performed By: #### 5 7021-8 ####[facility]ORATORYCLIA [id number] Differential cell count method Nom (Bld) Normal [facility] Comment on above: Order Comment: Speci men Type: BLOOD SPECIMENOrdering Facility: [facility] Address: [address] [place] [address] Result Comment: Carolina Owens RN informed lab after results autoverified that she rd on the wrong patient. Lab to credit. Nurse to redraw on correct patient.Corrected result: Previously reported as Auto on 08/16/2021 at 4:44 AM EDT. Performed By: #### 5 7021-8 ####[facility]ORATORYCLIA [id number] [address] Eosinophils (Bld) [#/Vol] Normal <0.46 [facility] Comment on above: Order Comment: Speci men Type: BLOOD SPECIMENOrdering Facility: [facility] Address: [address] [place] [address] Result Comment: Carolina Owens RN informed lab after results autoverified that she rd on the wrong patient. Lab to credit. Nurse to redraw on correct patient.Corrected result: Previously reported as 0.07 k/uL on 08/16/2021 at 4:44 AM EDT. Performed By: #### 5 7021-8 ####[facility]ORATORYCLIA [id number] [address] Eosinophils/100 WBC (Bld) Normal [facility] Comment on above: Order Comment: Speci men Type: BLOOD SPECIMENOrdering Facility: [facility] Address: [address] [place] [address] Result Comment: Carolina Owens RN informed lab after results autoverified that she rd on the wrong patient. Lab to credit. Nurse to redraw on correct patient.Corrected result: Previously reported as 0.7 % on 08/16/2021 at 4:44 AM EDT. Performed By: #### 5 7021-8 ####[facility]ORATORYCLIA [id number] OF [facility] Erythrocyte distribution width (RBC) [Ratio] Normal 11.5-15.0 [facility] Comment on above: Order Comment: Speci men Type: BLOOD SPECIMENOrdering Facility: [facility] Address: [address] [place] [address] Result Comment: Carolina Owens RN informed lab after results autoverified that she rd on the wrong patient. Lab to credit. Nurse to redraw on correct patient.Corrected result: Previously reported as 14.2 % on 08/16/2021 at 4:44 AM EDT. Performed By: #### 5 7021-8 ####[facility]ORATORYCLIA [id number] [address] OF [facility] Hematocrit (Bld) [Volume fraction] Normal 39.0-51.0 [facility] Comment on above: Order Comment: Speci [facility] Type: BLOOD SPECIMENOrdering Facility: [facility] Address: [address] [place] [address] Result Comment: Carolina Owens RN informed lab after results autoverified that she rd on the wrong patient. Lab to credit. Nurse to redraw on correct patient.Corrected result: Previously reported as 34.3 % on 08/16/2021 at 4:44 AM EDT. Performed By: #### 5 7021-8 ####[facility]ORATORYCLIA [id number] [address] [place] Hemoglobin (Bld) [Mass/Vol] Normal 13.0-17.0 [facility] Comment on above: Order Comment: Speci [facility] Type: BLOOD SPECIMENOrdering Facility: [facility] Address: [address] [place] [address] Result Comment: Carolina Owens RN informed lab after results autoverified that she rd on the wrong patient. Lab to credit. Nurse to redraw on correct patient.Corrected result: Previously reported as 11.2 g/dL on 08/16/2021 at 4:44 AM EDT. Performed By: #### 5 7021-8 ####[facility]ORATORYCLIA [id number] [address] OF [facility] IMMATURE GRAN % Normal [facility] Comment on above: Order Comment: Speci men Type: BLOOD SPECIMENOrdering Facility: [facility] Address: [address] [place] [address] Result Comment: Carolina Owens RN informed lab after results autoverified that she rd on the wrong patient. Lab to credit. Nurse to redraw on correct patient.Corrected result: Previously reported as 0.8 % on 08/16/2021 at 4:44 AM EDT. Performed By: #### 5 7021-8 ####[facility]ORATORYCLIA [id number] [address] IMMATURE GRAN ABS Normal <0.10 [facility] Comment on above: Order Comment: Speci men Type: BLOOD SPECIMENOrdering Facility: [facility] Address: [address] [place] [address] Result Comment: Tati ected result: Previously reported as 0.08 k/uL on 08/16/2021 at 4:44 AM EDT. Performed By: #### 5 7021-8 ####[facility]ORATORYCLIA [id number] [place] [address] [place] Lymphocytes (Bld) [#/Vol] Normal 1.00-4.00 [facility] Comment on above: Order Comment: Speci [facility] Type: BLOOD SPECIMENOrdering Facility: [facility] Address: [address] [place] [address] Result Comment: Carolina Owens RN informed lab after results autoverified that she rd on the wrong patient. Lab to credit. Nurse to redraw on correct patient.Corrected result: Previously reported as 1.17 k/uL on 08/16/2021 at 4:44 AM EDT. Performed By: #### 5 7021-8 ####[facility]ORATORYCLIA [id number] [place] [address] [place] Lymphocytes/100 WBC (Bld) Normal [facility] Comment on above: Order Comment: Speci men Type: BLOOD SPECIMENOrdering Facility: [facility] Address: [address] [place] [address] Result Comment: Carolina Owens RN informed lab after results autoverified that she rd on the wrong patient. Lab to credit. Nurse to redraw on correct patient.Corrected result: Previously reported as 12.0 % on 08/16/2021 at 4:44 AM EDT. Performed By: #### 5 7021-8 ####[facility]ORATORYCLIA [id number] [address] STATES OF [facility] MCHC (RBC) [Mass/Vol] Normal 30.5-36.0 [facility] Comment on above: Order Comment: Speci men Type: BLOOD SPECIMENOrdering Facility: [facility] Address: [address] [place] [address] Result Comment: Carolina Owens RN informed lab after results autoverified that she rd on the wrong patient. Lab to credit. Nurse to redraw on correct patient.Corrected result: Previously reported as 32.7 g/dL on 08/16/2021 at 4:44 AM EDT. Performed By: #### 5 7021-8 ####[facility]ORATORYCLIA [id number] [address] STATES OF [facility] MCV (RBC) [Entitic vol] Normal 80.0-100.0 [facility] Comment on above: Order Comment: Speci men Type: BLOOD SPECIMENOrdering Facility: [facility] Address: [address] [place] [address] Result Comment: Carolina Owens RN informed lab after results autoverified that she rd on the wrong patient. Lab to credit. Nurse to redraw on correct patient.Corrected result: Previously reported as 94.2 fL on 08/16/2021 at 4:44 AM EDT. Performed By: #### 5 7021-8 ####[facility]ORATORYCLIA [id number] [address] OF [facility] Monocytes (Bld) [#/Vol] Normal <0.87 [facility] Comment on above: Order Comment: Speci men Type: BLOOD SPECIMENOrdering Facility: [facility] Address: [address] [place] [address] Result Comment: Carolina Owens RN informed lab after results autoverified that she rd on the wrong patient. Lab to credit. Nurse to redraw on correct patient.Corrected result: Previously reported as 0.99 k/uL on 08/16/2021 at 4:44 AM EDT. Performed By: #### 5 7021-8 ####[facility] LABORATORYCLIA [id number] [place] [address] [place] Monocytes/100 WBC (Bld) Normal [facility] Comment on above: Order Comment: Speci men Type: BLOOD SPECIMENOrdering Facility: [facility] Address: [address] [place] [address] Result Comment: Carolina Owens RN informed lab after results autoverified that she rd on the wrong patient. Lab to credit. Nurse to redraw on correct patient.Corrected result: Previously reported as 10.2 % on 08/16/2021 at 4:44 AM EDT. Performed By: #### 5 7021-8 ####[facility] LABORATORYCLIA [id number] [place] [address] [place] Neutrophils (Bld) [#/Vol] Normal 1.45-7.50 [facility] Comment on above: Order Comment: Speci men Type: BLOOD SPECIMENOrdering Facility: [facility] Address: [address] [place] [address] Result Comment: Carolina Owens RN informed lab after results autoverified that she rd on the wrong patient. Lab to credit. Nurse to redraw on correct patient.Corrected result: Previously reported as 7.40 k/uL on 08/16/2021 at 4:44 AM EDT. Performed By: #### 5 7021-8 ####[facility] LABORATORYCLIA [id number] [place] [address] [place] Neutrophils/100 WBC (Bld) Normal [facility] Comment on above: Order Comment: Speci men Type: BLOOD SPECIMENOrdering Facility: [facility] Address: [address] [address] Result Comment: Carolina Owens RN informed lab after results autoverified that she rd on the wrong patient. Lab to credit. Nurse to redraw on correct patient.Corrected result: Previously reported as 75.9 % on 08/16/2021 at 4:44 AM EDT. Performed By: #### 5 7021-8 ####[facility]ORATORYCLIA [id number] [place] [address] [place] Platelet mean volume (Bld) [Entitic vol] Normal 9.0-12.7 [facility] Comment on above: Order Comment: Speci men Type: BLOOD SPECIMENOrdering Facility: [facility] Address: [address] [place] [address] Result Comment: Carolina Owens RN informed lab after results autoverified that she rd on the wrong patient. Lab to credit. Nurse to redraw on correct patient.Corrected result: Previously reported as 9.1 fL on 08/16/2021 at 4:44 AM EDT. Performed By: #### 5 7021-8 ####[facility]ORATORYCLIA [id number] [place] [address] [place] Platelets (Bld) [#/Vol] Normal 150-400 [facility] Comment on above: Order Comment: Speci men Type: BLOOD SPECIMENOrdering Facility: [facility] Address: [address] [place] [address] Result Comment: Carolina Owens RN informed lab after results autoverified that she rd on the wrong patient. Lab to credit. Nurse to redraw on correct patient.Corrected result: Previously reported as 338 k/uL on 08/16/2021 at 4:44 AM EDT. Performed By: #### 5 7021-8 ####[facility]ORATORYCLIA [id number] [address] [place] RBC (Bld) [#/Vol] Normal 4.20-6.00 [facility] Comment on above: Order Comment: Speci men Type: BLOOD SPECIMENOrdering Facility: [facility] Address: [address] [place] [address] Result Comment: Carolina Owens RN informed lab after results autoverified that she rd on the wrong patient. Lab to credit. Nurse to redraw on correct patient.Corrected result: Previously reported as 3.64 m/uL on 08/16/2021 at 4:44 AM EDT. Performed By: #### 5 7021-8 ####[facility]ORATORYCLIA [id number] [address] WBC (Bld) [#/Vol] Normal 3.70-11.00 [facility] Comment on above: Order Comment: Speci men Type: BLOOD SPECIMENOrdering Facility: [facility] Address: [address] [place] [address] Result Comment: Carolina Owens RN informed lab after results autoverified that she rd on the wrong patient. Lab to credit. Nurse to redraw on correct patient.Corrected result: Previously reported as 9.75 k/uL on 08/16/2021 at 4:44 AM EDT. Performed By: #### 5 7021-8 ####[facility]ORATORYCLIA [id number] [address] CONSULT PROGon 08-16-2021 CONSULT PROG Normal [facility] Magnesium SerPl-mCncon 08-16 Magnesium [Mass/Vol] 1.8 mg/dL Normal 1.7-2.3 [facility] Comment on above: Order Comment: Speci men Type: BLOOD SPECIMENOrdering Facility: [facility] Address: [address] [place] [address] Performed By: #### 2 4321-2, 91350-2 ####[facility]ORATORYCLIA [id number] [address] [place] NURSING PROGon 08-16-2021 NURSING PROG Normal [facility] Basic metabolic 2000 panelon 08-15-2021 Anion gap [Moles/Vol] 13 mmol/L Normal 9-18 [facility] Comment on above: Order Comment: Speci men Type: BLOOD SPECIMENOrdering Facility: [facility] Address: [address] [place] [address] Performed By: #### 2 4321-2 ####[facility] LABORATORYCLIA [id number] [place] [address] [place] Calcium [Mass/Vol] 9.0 mg/dL Normal 8.5-10.2 [facility] Comment on above: Order Comment: Speci men Type: BLOOD SPECIMENOrdering Facility: [facility] Address: [address] [place] [address] Performed By: #### 2 4321-2 ####[facility] LABORATORYCLIA [id number] [address] [place] Chloride [Moles/Vol] 95 mmol/L Low 97-105 [facility] Comment on above: Order Comment: Speci men Type: BLOOD SPECIMENOrdering Facility: [facility] Address: [address] [place] [address] Performed By: #### 2 4321-2 ####[facility]ORATORYCLIA [id number] [place] [address] [place] CO2 [Moles/Vol] 28 mmol/L Normal 22-30 [facility] Comment on above: Order Comment: Speci men Type: BLOOD SPECIMENOrdering Facility: [facility] Address: [address] [place] [address] Performed By: #### 2 4321-2 ####[facility]ORATORYCLIA [id number] [address] [place] Creatinine [Mass/Vol] 0.50 mg/dL Low 0.73-1.22 [facility] Comment on above: Order Comment: Speci men Type: BLOOD SPECIMENOrdering Facility: [facility] Address: [address] [place] [address] Performed By: #### 2 4321-2 ####[facility] LABORATORYCLIA [id number] [address] [place] ESTIMATED GLOMERULAR FILTRATION RATE 110 mL/min/1.73m??? Normal >=60 [facility] Comment on above: Order Comment: Shira feldman Type: BLOOD SPECIMENOrdering Facility: [facility] Address: [address] [id number] Result Comment: Luzmaria mated Glomerular Filtration Rate [...] actual GFR. Performed By: #### 2 4321-2 ####[facility]ORATORYCLIA [id number] [place] [address] [place] Glucose [Mass/Vol] 106 mg/dL High 74-99 [facility] Comment on above: Order Comment: Shira feldman Type: BLOOD SPECIMENOrdering Facility: [facility] Address: [address] [place], [place] [id number] Result Comment: The [place] [employer] (ADA) provides guidance for cutoff [...] Standards of Medical Care in Diabetes 2016, [place] [employer]. Diabetes Care. 2016.39(Suppl 1). Performed By: #### 2 4321-2 ####[facility]ORATORYCLIA [id number] [place] [address] [place] Potassium [Moles/Vol] 3.3 mmol/L Low 3.7-5.1 [facility] Comment on above: Order Comment: Shira feldman Type: BLOOD SPECIMENOrdering Facility: [facility] Address: [address] [phone] Performed By: #### 2 4321-2 ####[facility]ORATORYCLIA [id number] [address] [place] Sodium [Moles/Vol] 136 mmol/L Normal 136-144 [facility] Comment on above: Order Comment: Speci men Type: BLOOD SPECIMENOrdering Facility: [facility] Address: [address] [place] [address] Performed By: #### 2 4321-2 ####[facility]ORATORYCLIA [id number] [address] [place] Urea nitrogen [Mass/Vol] 11 mg/dL Normal 9-24 [facility] Comment on above: Order Comment: Speci men Type: BLOOD SPECIMENOrdering Facility: [facility] Address: [address] [place] [address] Performed By: #### 2 4321-2 ####[facility]ORATORYCLIA [id number] [address] STATES OF [facility] CASE MANAGEMon 08-15-2021 CASE MANAGEM Normal [facility] CBC W Auto Differential pane l (Bld)on 08-15-2021 Basophils (Bld) [#/Vol] 0.03 10*3/uL Normal <0.11 [facility] Comment on above: Order Comment: Speci men Type: BLOOD SPECIMENOrdering Facility: [facility] Address: [address] [place] [address] Performed By: #### 5 7021-8 ####[facility]ORATORYCLIA [id number] [address] [place] Basophils/100 WBC (Bld) 0.4 % Normal [facility] Comment on above: Order Comment: Speci men Type: BLOOD SPECIMENOrdering Facility: [facility] Address: [address] [place] [address] Performed By: #### 5 7021-8 ####[facility]ORATORYCLIA [id number] [address] Differential cell count method Nom (Bld) Auto Normal [facility] Comment on above: Order Comment: Speci men Type: BLOOD SPECIMENOrdering Facility: [facility] Address: [address] [place] [address] Performed By: #### 5 7021-8 ####[facility]ORATORYCLIA [id number] [address] [place] Eosinophils (Bld) [#/Vol] 0.20 10*3/uL Normal <0.46 [facility] Comment on above: Order Comment: Speci men Type: BLOOD SPECIMENOrdering Facility: [facility] Address: [address] [place] [address] Performed By: #### 5 7021-8 ####[facility]ORATORYCLIA [id number] [address] OF [facility] Eosinophils/100 WBC (Bld) 2.5 % Normal [facility] Comment on above: Order Comment: Speci men Type: BLOOD SPECIMENOrdering Facility: [facility] Address: [address] [place] [address] Performed By: #### 5 7021-8 ####[facility]ORATORYCLIA [id number] [address] [place] Erythrocyte distribution width (RBC) [Ratio] 16.7 % High 11.5-15.0 [facility] Comment on above: Order Comment: Speci men Type: BLOOD SPECIMENOrdering Facility: [facility] Address: [address] [place] [address] Performed By: #### 5 7021-8 ####[facility]ORATORYCLIA [id number] [address] [place] Hematocrit (Bld) [Volume fraction] 30.3 % Low 39.0-51.0 [facility] Comment on above: Order Comment: Speci men Type: BLOOD SPECIMENOrdering Facility: [facility] Address: [address] [place] [address] Performed By: #### 5 7021-8 ####[facility]ORATORYCLIA [id number] [address] OF [facility] Hemoglobin (Bld) [Mass/Vol] 9.4 g/dL Low 13.0-17.0 [facility] Comment on above: Order Comment: Speci men Type: BLOOD SPECIMENOrdering Facility: [facility] Address: [address] [place] [address] Performed By: #### 5 7021-8 ####[facility]ORATORYCLIA [id number] [address] IMMATURE GRAN % 0.4 % Normal [facility] Comment on above: Order Comment: Speci men Type: BLOOD SPECIMENOrdering Facility: [facility] Address: [address] [place] [address] Performed By: #### 5 7021-8 ####[facility]ORATORYCLIA [id number] [address] IMMATURE GRAN ABS 0.03 k/uL Normal <0.10 [facility] Comment on above: Order Comment: Speci men Type: BLOOD SPECIMENOrdering Facility: [facility] Address: [address] [place] [address] Performed By: #### 5 7021-8 ####[facility]ORATORYCLIA [id number] [address] Lymphocytes (Bld) [#/Vol] 1.50 10*3/uL Normal 1.00-4.00 [facility] Comment on above: Order Comment: Speci men Type: BLOOD SPECIMENOrdering Facility: [facility] Address: [address] [place] [address] Performed By: #### 5 7021-8 ####[facility]ORATORYCLIA [id number] [address] Lymphocytes/100 WBC (Bld) 18.5 % Normal [facility] Comment on above: Order Comment: Speci men Type: BLOOD SPECIMENOrdering Facility: [facility] Address: [address] [place] [address] Performed By: #### 5 7021-8 ####[facility]ORATORYCLIA [id number] [address] MCH (RBC) [Entitic mass] 29.0 pg Normal 26.0-34.0 [facility] Comment on above: Order Comment: Speci men Type: BLOOD SPECIMENOrdering Facility: [facility] Address: [address] [place] [address] Performed By: #### 5 7021-8 ####[facility]ORATORYCLIA [id number] [address] MCHC (RBC) [Mass/Vol] 31.0 g/dL Normal 30.5-36.0 [facility] Comment on above: Order Comment: Speci men Type: BLOOD SPECIMENOrdering Facility: [facility] Address: [address] [place] [address] Performed By: #### 5 7021-8 ####[facility]ATORYCLIA [id number] [address] MCV (RBC) [Entitic vol] 93.5 fL Normal 80.0-100.0 [facility] Comment on above: Order Comment: Speci men Type: BLOOD SPECIMENOrdering Facility: [facility] Address: [address] [place] [address] Performed By: #### 5 7021-8 ####[facility]ATORYCLIA [id number] [address] Monocytes (Bld) [#/Vol] 0.47 10*3/uL Normal <0.87 [facility] Comment on above: Order Comment: Speci men Type: BLOOD SPECIMENOrdering Facility: [facility] Address: [address] [place] [address] Performed By: #### 5 7021-8 ####[facility]ORATORYCLIA [id number] [address] Monocytes/100 WBC (Bld) 5.8 % Normal [facility] Comment on above: Order Comment: Speci men Type: BLOOD SPECIMENOrdering Facility: [facility] Address: [address] [address] Performed By: #### 5 7021-8 ####[facility] LABORATORYCLIA [id number] [address] [place] Neutrophils (Bld) [#/Vol] 5.87 10*3/uL Normal 1.45-7.50 [facility] Comment on above: Order Comment: Speci men Type: BLOOD SPECIMENOrdering Facility: [facility] Address: [address] [address] Performed By: #### 5 7021-8 ####[facility]ORATORYCLIA [id number] [address] Neutrophils/100 WBC (Bld) 72.4 % Normal [facility] Comment on above: Order Comment: Speci men Type: BLOOD SPECIMENOrdering Facility: [facility] Address: [address] [place] [address] Performed By: #### 5 7021-8 ####[facility]ORATORYCLIA [id number] [address] Nucleated RBC (Bld) [#/Vol] 10*3/uL Normal <0.01 [facility] Comment on above: Order Comment: Speci men Type: BLOOD SPECIMENOrdering Facility: [facility] Address: [address] [address] Performed By: #### 5 7021-8 ####[facility]ORATORYCLIA [id number] [address] Nucleated RBC/100 WBC (Bld) [Ratio] 0.0 /100 WBC Normal [facility] Comment on above: Order Comment: Speci men Type: BLOOD SPECIMENOrdering Facility: [facility] Address: [address] [address] Performed By: #### 5 7021-8 ####[facility] LABORATORYCLIA [id number] [address] Platelet mean volume (Bld) [Entitic vol] 9.4 fL Normal 9.0-12.7 [facility] Comment on above: Order Comment: Speci men Type: BLOOD SPECIMENOrdering Facility: [facility] Address: [address] [place] [address] Performed By: #### 5 7021-8 ####[facility]ORATORYCLIA [id number] [address] [place] Platelets (Bld) [#/Vol] 290 10*3/uL Normal 150-400 [facility] Comment on above: Order Comment: Speci men Type: BLOOD SPECIMENOrdering Facility: [facility] Address: [address] [place] [address] Performed By: #### 5 7021-8 ####[facility]ORATORYCLIA [id number] [address] STATES OF [facility] RBC (Bld) [#/Vol] 3.24 10*6/uL Low 4.20-6.00 [facility] Comment on above: Order Comment: Speci men Type: BLOOD SPECIMENOrdering Facility: [facility] Address: [address] [place] [address] Performed By: #### 5 7021-8 ####[facility]ORATORYCLIA [id number] [address] [place] WBC (Bld) [#/Vol] 8.10 10*3/uL Normal 3.70-11.00 [facility] Comment on above: Order Comment: Speci men Type: BLOOD SPECIMENOrdering Facility: [facility] Address: [address] [place] [address] Performed By: #### 5 7021-8 ####[facility]ORATORYCLIA [id number] [address] THERAPY NTon 08-15-2021 THERAPY NT Normal [facility] THERAPY NT Normal [facility] THERAPY NT Normal [facility] Basic metabolic 2000 panelon 08-14-2021 Anion gap [Moles/Vol] 10 mmol/L Normal 9-18 [facility] Comment on above: Order Comment: Speci men Type: BLOOD SPECIMENOrdering Facility: [facility] Address: [address] [place] [address] Performed By: #### 2 4321-2 ####[facility] GENERAL LABORATORYCLIA [id number] [place] [address] [place] Calcium [Mass/Vol] 8.8 mg/dL Normal 8.5-10.2 [facility] Comment on above: Order Comment: Speci men Type: BLOOD SPECIMENOrdering Facility: [facility] Address: [address] [place] [address] Performed By: #### 2 4321-2 ####[facility] LABORATORYCLIA [id number] [place] [address] [place] Chloride [Moles/Vol] 92 mmol/L Low 97-105 [facility] Comment on above: Order Comment: Speci men Type: BLOOD SPECIMENOrdering Facility: [facility] Address: [address] [place] [address] Performed By: #### 2 4321-2 ####[facility] LABORATORYCLIA [id number] [place] [address] [place] CO2 [Moles/Vol] 29 mmol/L Normal 22-30 [facility] Comment on above: Order Comment: Speci men Type: BLOOD SPECIMENOrdering Facility: [facility] Address: [address] [place] [address] Performed By: #### 2 4321-2 ####[facility] LABORATORYCLIA [id number] [place] [address] [place] Creatinine [Mass/Vol] 0.49 mg/dL Low 0.73-1.22 [facility] Comment on above: Order Comment: Speci men Type: BLOOD SPECIMENOrdering Facility: [facility] Address: [address] [place] [address] Performed By: #### 2 4321-2 ####[facility] LABORATORYCLIA [id number] [place] [address] [place] ESTIMATED GLOMERULAR FILTRATION RATE 111 mL/min/1.73m??? Normal >=60 [facility] Comment on above: Order Comment: Shira feldman Type: BLOOD SPECIMENOrdering Facility: [facility] Address: [address] [place] [address] Result Comment: Luzmaria mated Glomerular Filtration Rate [...] actual GFR. Performed By: #### 2 4321-2 ####[facility] LABORATORYIA [id number] [place] [address] [place] Glucose [Mass/Vol] 104 mg/dL High 74-99 [facility] Comment on above: Order Comment: Shira feldman Type: BLOOD SPECIMENOrdering Facility: [facility] Address: [address] [place] [address] Result Comment: The [place] [employer] (ADA) provides guidance for cutoff [...] Standards of Medical Care in Diabetes 2016, [place] [employer]. Diabetes Care. 2016.39(Suppl 1). Performed By: #### 2 4321-2 ####[facility] LABORATORYCLIA [id number] [place] [address] [place] Potassium [Moles/Vol] 3.1 mmol/L Low 3.7-5.1 [facility] Comment on above: Order Comment: Speci men Type: BLOOD SPECIMENOrdering Facility: [facility] Address: [address] [place] [address] Performed By: #### 2 4321-2 ####[facility] LABORATORYCLIA [id number] [address] [place] Sodium [Moles/Vol] 131 mmol/L Low 136-144 [facility] Comment on above: Order Comment: Speci men Type: BLOOD SPECIMENOrdering Facility: [facility] Address: [address] [place] [address] Performed By: #### 2 4321-2 ####[facility] LABORATORYCLIA [id number] [address] [place] Urea nitrogen [Mass/Vol] 13 mg/dL Normal 9-24 [facility] Comment on above: Order Comment: Speci men Type: BLOOD SPECIMENOrdering Facility: [facility] Address: [address] [place] [address] Performed By: #### 2 4321-2 ####[facility] LABORATORYCLIA [id number] [address] [place] CBC W Auto Differential pane l (Bld)on 08-14-2021 Basophils (Bld) [#/Vol] 10*3/uL Normal <0.11 [facility] Comment on above: Order Comment: Speci men Type: BLOOD SPECIMENOrdering Facility: [facility] Address: [address] [place] [address] Performed By: #### 5 7021-8 ####[facility] LABORATORYCLIA [id number] [address] [place] Basophils/100 WBC (Bld) 0.2 % Normal [facility] Comment on above: Order Comment: Speci men Type: BLOOD SPECIMENOrdering Facility: [facility] Address: [address] [place] [address] Performed By: #### 5 7021-8 ####[facility] LABORATORYCLIA [id number] [address] Differential cell count method Nom (Bld) Auto Normal [facility] Comment on above: Order Comment: Speci men Type: BLOOD SPECIMENOrdering Facility: [facility] Address: [address] [place] [address] Performed By: #### 5 7021-8 ####[facility] LABORATORYCLIA [id number] [address] STATES OF [facility] Eosinophils (Bld) [#/Vol] 0.23 10*3/uL Normal <0.46 [facility] Comment on above: Order Comment: Speci men Type: BLOOD SPECIMENOrdering Facility: [facility] Address: [address] [place] [address] Performed By: #### 5 7021-8 ####[facility] LABORATORYCLIA [id number] [address] Eosinophils/100 WBC (Bld) 2.7 % Normal [facility] Comment on above: Order Comment: Speci men Type: BLOOD SPECIMENOrdering Facility: [facility] Address: [address] [place] [address] Performed By: #### 5 7021-8 ####[facility] LABORATORYCLIA [id number] [address] Erythrocyte distribution width (RBC) [Ratio] 16.6 % High 11.5-15.0 [facility] Comment on above: Order Comment: Speci men Type: BLOOD SPECIMENOrdering Facility: [facility] Address: [address] [place] [address] Performed By: #### 5 7021-8 ####[facility] LABORATORYCLIA [id number] [address] Hematocrit (Bld) [Volume fraction] 28.6 % Low 39.0-51.0 [facility] Comment on above: Order Comment: Speci men Type: BLOOD SPECIMENOrdering Facility: [facility] Address: [address] [place] [address] Performed By: #### 5 7021-8 ####[facility] LABORATORYCLIA [id number] [address] [place] Hemoglobin (Bld) [Mass/Vol] 9.0 g/dL Low 13.0-17.0 [facility] Comment on above: Order Comment: Speci men Type: BLOOD SPECIMENOrdering Facility: [facility] Address: [address] [place] [address] Performed By: #### 5 7021-8 ####[facility] LABORATORYCLIA [id number] [address] IMMATURE GRAN % 0.2 % Normal [facility] Comment on above: Order Comment: Speci men Type: BLOOD SPECIMENOrdering Facility: [facility] Address: [address] [place] [address] Performed By: #### 5 7021-8 ####[facility] LABORATORYCLIA [id number] [address] IMMATURE GRAN ABS <0.03 Normal <0.10 [facility] Comment on above: Order Comment: Speci men Type: BLOOD SPECIMENOrdering Facility: [facility] Address: [address] [place] [address] Performed By: #### 5 7021-8 ####[facility] LABORATORYCLIA [id number] [address] Lymphocytes (Bld) [#/Vol] 1.33 10*3/uL Normal 1.00-4.00 [facility] Comment on above: Order Comment: Speci men Type: BLOOD SPECIMENOrdering Facility: [facility] Address: [address] [place] [address] Performed By: #### 5 7021-8 ####[facility] LABORATORYCLIA [id number] [address] Lymphocytes/100 WBC (Bld) 15.6 % Normal [facility] Comment on above: Order Comment: Speci men Type: BLOOD SPECIMENOrdering Facility: [facility] Address: [address] [place] [address] Performed By: #### 5 7021-8 ####[facility] LABORATORYCLIA [id number] [address] MCH (RBC) [Entitic mass] 29.0 pg Normal 26.0-34.0 [facility] Comment on above: Order Comment: Speci men Type: BLOOD SPECIMENOrdering Facility: [facility] Address: [address] [place] [address] Performed By: #### 5 7021-8 ####[facility] LABORATORYCLIA [id number] [address] MCHC (RBC) [Mass/Vol] 31.5 g/dL Normal 30.5-36.0 [facility] Comment on above: Order Comment: Speci men Type: BLOOD SPECIMENOrdering Facility: [facility] Address: [address] [place] [address] Performed By: #### 5 7021-8 ####[facility] LABORATORYCLIA [id number] [address] MCV (RBC) [Entitic vol] 92.3 fL Normal 80.0-100.0 [facility] Comment on above: Order Comment: Speci men Type: BLOOD SPECIMENOrdering Facility: [facility] Address: [address] [place] [address] Performed By: #### 5 7021-8 ####[facility] LABORATORYCLIA [id number] [address] Monocytes (Bld) [#/Vol] 0.44 10*3/uL Normal <0.87 [facility] Comment on above: Order Comment: Speci men Type: BLOOD SPECIMENOrdering Facility: [facility] Address: [address] [place] [address] Performed By: #### 5 7021-8 ####[facility] LABORATORYCLIA [id number] [address] Monocytes/100 WBC (Bld) 5.2 % Normal [facility] Comment on above: Order Comment: Speci men Type: BLOOD SPECIMENOrdering Facility: [facility] Address: [address] [address] Performed By: #### 5 7021-8 ####[facility] LABORATORYCLIA [id number] [address] [place] Neutrophils (Bld) [#/Vol] 6.46 10*3/uL Normal 1.45-7.50 [facility] Comment on above: Order Comment: Speci men Type: BLOOD SPECIMENOrdering Facility: [facility] Address: [address] [place] [address] Performed By: #### 5 7021-8 ####[facility] LABORATORYCLIA [id number] [address] [place] Neutrophils/100 WBC (Bld) 76.1 % Normal [facility] Comment on above: Order Comment: Speci men Type: BLOOD SPECIMENOrdering Facility: [facility] Address: [address] [place] [address] Performed By: #### 5 7021-8 ####[facility] LABORATORYCLIA [id number] [address] [place] Nucleated RBC (Bld) [#/Vol] 10*3/uL Normal <0.01 [facility] Comment on above: Order Comment: Speci men Type: BLOOD SPECIMENOrdering Facility: [facility] Address: [address] [place] [address] Performed By: #### 5 7021-8 ####[facility]ORATORYCLIA [id number] [address] [place] Nucleated RBC/100 WBC (Bld) [Ratio] 0.0 /100 WBC Normal [facility] Comment on above: Order Comment: Speci men Type: BLOOD SPECIMENOrdering Facility: [facility] Address: [address] [place] [address] Performed By: #### 5 7021-8 ####[facility] [facility] LABORATORYCLIA [id number] [address] [place] Platelet mean volume (Bld) [Entitic vol] 9.5 fL Normal 9.0-12.7 [facility] Comment on above: Order Comment: Speci men Type: BLOOD SPECIMENOrdering Facility: [facility] Address: [address] [place] [address] Performed By: #### 5 7021-8 ####[facility] LABORATORYCLIA [id number] [place] [address] [place] Platelets (Bld) [#/Vol] 247 10*3/uL Normal 150-400 [facility] Comment on above: Order Comment: Speci men Type: BLOOD SPECIMENOrdering Facility: [facility] Address: [address] [place] [address] Performed By: #### 5 7021-8 ####[facility] LABORATORYCLIA [id number] [place] [address] [place] RBC (Bld) [#/Vol] 3.10 10*6/uL Low 4.20-6.00 [facility] Comment on above: Order Comment: Speci men Type: BLOOD SPECIMENOrdering Facility: [facility] Address: [address] [place] [address] Performed By: #### 5 7021-8 ####[facility] LABORATORYCLIA [id number] [address] [place] WBC (Bld) [#/Vol] 8.50 10*3/uL Normal 3.70-11.00 [facility] Comment on above: Order Comment: Speci men Type: BLOOD SPECIMENOrdering Facility: [facility] Address: [address] [place] [address] Performed By: #### 5 7021-8 ####[facility] LABORATORYCLIA [id number] [address] [place] CONSULTon 08-14-2021 CONSULT Normal [facility] NURSING PROGon 08-14-2021 NURSING PROG Normal [facility] CBC W Auto Differential pane l (Bld)on 08-13-2021 Basophils (Bld) [#/Vol] 10*3/uL Normal <0.11 [facility] Comment on above: Order Comment: Speci men Type: BLOOD SPECIMENOrdering Facility: [facility] Address: [address] [place] [address] Performed By: #### 5 7021-8 ####[facility] LABORATORYCLIA [id number] [address] [place] Basophils/100 WBC (Bld) 0.2 % Normal [facility] Comment on above: Order Comment: Speci men Type: BLOOD SPECIMENOrdering Facility: [facility] Address: [address] [place] [address] Performed By: #### 5 7021-8 ####[place] [facility] LABORATORYCLIA [id number] [address] [place] Differential cell count method Nom (Bld) Auto Normal [facility] Comment on above: Order Comment: Speci men Type: BLOOD SPECIMENOrdering Facility: [facility] Address: [address] [place] [address] Performed By: #### 5 7021-8 ####[facility] [facility] LABORATORYCLIA [id number] [address] [place] Eosinophils (Bld) [#/Vol] 0.31 10*3/uL Normal <0.46 [facility] Comment on above: Order Comment: Speci men Type: BLOOD SPECIMENOrdering Facility: [facility] Address: [address] [place] [address] Performed By: #### 5 7021-8 ####[facility] LABORATORYCLIA [id number] [address] [place] Eosinophils/100 WBC (Bld) 3.7 % Normal [facility] Comment on above: Order Comment: Speci men Type: BLOOD SPECIMENOrdering Facility: [facility] Address: [address] [place] [address] Performed By: #### 5 7021-8 ####[facility] [facility] LABORATORYCLIA [id number] [address] Erythrocyte distribution width (RBC) [Ratio] 16.6 % High 11.5-15.0 [facility] Comment on above: Order Comment: Speci men Type: BLOOD SPECIMENOrdering Facility: [facility] Address: [address] [place] [address] Performed By: #### 5 7021-8 ####[facility]ORATORYCLIA [id number] [address] Hematocrit (Bld) [Volume fraction] 27.5 % Low 39.0-51.0 [facility] Comment on above: Order Comment: Speci men Type: BLOOD SPECIMENOrdering Facility: [facility] Address: [address] [place] [address] Performed By: #### 5 7021-8 ####[facility]ITALCL[facility] [id number] [address] OF [facility] Hemoglobin (Bld) [Mass/Vol] 8.4 g/dL Low 13.0-17.0 [facility] Comment on above: Order Comment: Speci men Type: BLOOD SPECIMENOrdering Facility: [facility] Address: [address] [place] [address] Performed By: #### 5 7021-8 ####[facility]ORATORYCLIA [id number] [address] IMMATURE GRAN % 0.5 % Normal [facility] Comment on above: Order Comment: Speci men Type: BLOOD SPECIMENOrdering Facility: [facility] Address: [address] [place] [address] Performed By: #### 5 7021-8 ####[facility]ORATORYCLIA [id number] [address] IMMATURE GRAN ABS 0.04 k/uL Normal <0.10 [facility] Comment on above: Order Comment: Speci men Type: BLOOD SPECIMENOrdering Facility: [facility] Address: [address] [place] [address] Performed By: #### 5 7021-8 ####[facility]ORATORYCLIA [id number] [address] OF [facility] Lymphocytes (Bld) [#/Vol] 1.55 10*3/uL Normal 1.00-4.00 [facility] Comment on above: Order Comment: Speci men Type: BLOOD SPECIMENOrdering Facility: [facility] Address: [address] [place] [address] Performed By: #### 5 7021-8 ####[facility]ORATORYCLIA [id number] [address] Lymphocytes/100 WBC (Bld) 18.7 % Normal [facility] Comment on above: Order Comment: Speci men Type: BLOOD SPECIMENOrdering Facility: [facility] Address: [address] [place] [address] Performed By: #### 5 7021-8 ####[facility]ORATORYCLIA [id number] [address] MCH (RBC) [Entitic mass] 28.9 pg Normal 26.0-34.0 [facility] Comment on above: Order Comment: Speci men Type: BLOOD SPECIMENOrdering Facility: [facility] Address: [address] [place] [address] Performed By: #### 5 7021-8 ####[facility]ORATORYCLIA [id number] [address] MCHC (RBC) [Mass/Vol] 30.5 g/dL Normal 30.5-36.0 [facility] Comment on above: Order Comment: Speci men Type: BLOOD SPECIMENOrdering Facility: [facility] Address: [address] [place] [address] Performed By: #### 5 7021-8 ####[facility]ORATORYCLIA [id number] [address] [place] MCV (RBC) [Entitic vol] 94.5 fL Normal 80.0-100.0 [facility] Comment on above: Order Comment: Speci men Type: BLOOD SPECIMENOrdering Facility: [facility] Address: [address] [place] [address] Performed By: #### 5 7021-8 ####[facility]ORATORYCLIA [id number] [address] [place] Monocytes (Bld) [#/Vol] 0.47 10*3/uL Normal <0.87 [facility] Comment on above: Order Comment: Speci men Type: BLOOD SPECIMENOrdering Facility: [facility] Address: [address] [place] [address] Performed By: #### 5 7021-8 ####[place] [facility] LABORATORYCLIA [id number] [address] Monocytes/100 WBC (Bld) 5.7 % Normal [facility] Comment on above: Order Comment: Speci men Type: BLOOD SPECIMENOrdering Facility: [facility] Address: [address] [place] [address] Performed By: #### 5 7021-8 ####[facility]ORATORYCLIA [id number] [address] STATES OF [facility] Neutrophils (Bld) [#/Vol] 5.92 10*3/uL Normal 1.45-7.50 [facility] Comment on above: Order Comment: Speci men Type: BLOOD SPECIMENOrdering Facility: [facility] Address: [address] [place] [address] Performed By: #### 5 7021-8 ####[facility]ORATORYCLIA [id number] [address] [place] Neutrophils/100 WBC (Bld) 71.2 % Normal [facility] Comment on above: Order Comment: Speci men Type: BLOOD SPECIMENOrdering Facility: [facility] Address: [address] [place] [address] Performed By: #### 5 7021-8 ####[facility] LABORATORYCLIA [id number] [place] [address] [place] Nucleated RBC (Bld) [#/Vol] 10*3/uL Normal <0.01 [facility] Comment on above: Order Comment: Speci men Type: BLOOD SPECIMENOrdering Facility: [facility] Address: [address] [place] [address] Performed By: #### 5 7021-8 ####[facility]ORATORYCLIA [id number] [address] [place] Nucleated RBC/100 WBC (Bld) [Ratio] 0.0 /100 WBC Normal [facility] Comment on above: Order Comment: Speci men Type: BLOOD SPECIMENOrdering Facility: [facility] Address: [address] [place] [address] Performed By: #### 5 7021-8 ####[facility]ORATORYCLIA [id number] [address] [place] Platelet mean volume (Bld) [Entitic vol] 9.9 fL Normal 9.0-12.7 [facility] Comment on above: Order Comment: Speci men Type: BLOOD SPECIMENOrdering Facility: [facility] Address: [address] [place] [address] Performed By: #### 5 7021-8 ####[facility]ORATORYCLIA [id number] [address] [place] Platelets (Bld) [#/Vol] 203 10*3/uL Normal 150-400 [facility] Comment on above: Order Comment: Speci men Type: BLOOD SPECIMENOrdering Facility: [facility] Address: [address] [place] [address] Performed By: #### 5 7021-8 ####[facility]ORATORYCLIA [id number] [address] [place] RBC (Bld) [#/Vol] 2.91 10*6/uL Low 4.20-6.00 [facility] Comment on above: Order Comment: Speci men Type: BLOOD SPECIMENOrdering Facility: [facility] Address: [address] [address] Performed By: #### 5 7021-8 ####[facility]ORATORYCLIA [id number] [address] OF [facility] WBC (Bld) [#/Vol] 8.31 10*3/uL Normal 3.70-11.00 [facility] Comment on above: Order Comment: Speci men Type: BLOOD SPECIMENOrdering Facility: [facility] Address: [address] [place] [address] Performed By: #### 5 7021-8 ####[facility]ORATORYCLIA [id number] [address] OF [facility] aPTT PPPon 08-13-2021 aPTT Coag (PPP) [Time] 69.7 s High 23.0-32.4 [facility] Comment on above: Order Comment: Speci men Type: BLOOD SPECIMENOrdering Facility: [facility] Address: [address] [place] [address] Performed By: #### 1 4979-9 ####[facility]ORATORYCLIA [id number] [address] aPTT Coag (PPP) [Time] 70.6 s High 23.0-32.4 [facility] Comment on above: Order Comment: Speci men Type: BLOOD SPECIMENOrdering Facility: [facility] Address: [address] [place] [address] Performed By: #### 1 4979-9 ####[facility]ORATORYCLIA [id number] [address] [place] ALLIED HEALTHon 08-12-2021 ALLIED HEALTH Normal [facility] ALLIED HEALTH Normal [facility] Basic metabolic 2000 panelon 08-12-2021 Anion gap [Moles/Vol] 7 mmol/L Low 9-18 [facility] Comment on above: Order Comment: Speci men Type: BLOOD SPECIMENOrdering Facility: [facility] Address: [address] [place] [address] Performed By: #### 2 4321-2, , 2776-05 ####[facility]ORATORYCLIA [id number] [place] [address] [place] Calcium [Mass/Vol] 8.8 mg/dL Normal 8.5-10.2 [facility] Comment on above: Order Comment: Speci men Type: BLOOD SPECIMENOrdering Facility: [facility] Address: [address] [place] [address] Performed By: #### 2 4321-2, , 2776-05 ####[facility]ORATORYCLIA [id number] [place] [address] [place] Chloride [Moles/Vol] 96 mmol/L Low 97-105 [facility] Comment on above: Order Comment: Speci men Type: BLOOD SPECIMENOrdering Facility: [facility] Address: [address] [place] [address] Performed By: #### 2 432-2, , 2776-05 ####[facility]ORATORYCLIA [id number] [place] [address] [place] CO2 [Moles/Vol] 32 mmol/L High 22-30 [facility] Comment on above: Order Comment: Speci men Type: BLOOD SPECIMENOrdering Facility: [facility] Address: [address] [place] [address] Performed By: #### 2 4321-2, , 2776-05 ####[facility]ORATORYCLIA [id number] [place] [address] [place] Creatinine [Mass/Vol] 0.52 mg/dL Low 0.73-1.22 [facility] Comment on above: Order Comment: Speci men Type: BLOOD SPECIMENOrdering Facility: [facility] Address: [address] [place] [address] Performed By: #### 2 4321-2, , 2776-05 ####[facility]ORATORYCLIA [id number] [place] [address] [place] ESTIMATED GLOMERULAR FILTRATION RATE 109 mL/min/1.73m??? Normal >=60 [facility] Comment on above: Order Comment: Shira feldman Type: BLOOD SPECIMENOrdering Facility: [facility] Address: [address] [place], [place] [id number] Result Comment: Luzmaria mated Glomerular Filtration Rate [...] actual GFR. Performed By: #### 2 4321-2, 81028-6, 2776-05 ####[facility]ORATORYCLIA [id number] [place] [address] [place] Glucose [Mass/Vol] 119 mg/dL High 74-99 [facility] Comment on above: Order Comment: Shira feldman Type: BLOOD SPECIMENOrdering Facility: [facility] Address: [address] [place], [place] [id number] Result Comment: The [place] [employer] (ADA) provides guidance for cutoff [...] Standards of Medical Care in Diabetes 2016, [place] [employer]. Diabetes Care. 2016.39(Suppl 1). Performed By: #### 2 4321-2, 50231-6, 2776-05 ####[facility]ORATORYCLIA [id number] [place] [address] [place] Potassium [Moles/Vol] 3.7 mmol/L Normal 3.7-5.1 [facility] Comment on above: Order Comment: Speci men Type: BLOOD SPECIMENOrdering Facility: [facility] Address: [address] [place] [address] Performed By: #### 2 4321-2, , 2776-05 ####[facility]ATORYCLIA [id number] [address] [place] Sodium [Moles/Vol] 135 mmol/L Low 136-144 [facility] Comment on above: Order Comment: Speci men Type: BLOOD SPECIMENOrdering Facility: [facility] Address: [address] [place] [address] Performed By: #### 2 4321-2, , 2776-05 ####[facility]ATORYCLIA [id number] [address] [place] Urea nitrogen [Mass/Vol] 20 mg/dL Normal 9-24 [facility] Comment on above: Order Comment: Speci men Type: BLOOD SPECIMENOrdering Facility: [facility] Address: [address] [place] [address] Performed By: #### 2 4321-2, , 2776-05 ####[facility]ATORYCLIA [id number] [address] [place] CASE MANAGEMon 08-12-2021 CASE MANAGEM Normal [facility] CBC W Auto Differential pane l (Bld)on 08-12-2021 Basophils (Bld) [#/Vol] 0.04 10*3/uL Normal <0.11 [facility] Comment on above: Order Comment: Speci men Type: BLOOD SPECIMENOrdering Facility: [facility] Address: [address] [place] [address] Performed By: #### 5 7021-8 ####[facility]ATORYCLIA [id number] [address] STATES [facility] Basophils/100 WBC (Bld) 0.5 % Normal [facility] Comment on above: Order Comment: Speci men Type: BLOOD SPECIMENOrdering Facility: [facility] Address: [address] [address] Performed By: #### 5 7021-8 ####[facility]ORATORYCLIA [id number] [address] Differential cell count method Nom (Bld) Auto Normal [facility] Comment on above: Order Comment: Speci men Type: BLOOD SPECIMENOrdering Facility: [facility] Address: [address] [place] [address] Performed By: #### 5 7021-8 ####[facility]ATORYCLIA [id number] [address] [place] Eosinophils (Bld) [#/Vol] 0.19 10*3/uL Normal <0.46 [facility] Comment on above: Order Comment: Speci men Type: BLOOD SPECIMENOrdering Facility: [facility] Address: [address] [place] [address] Performed By: #### 5 7021-8 ####[facility]ATORYCLIA [id number] [address] Eosinophils/100 WBC (Bld) 2.3 % Normal [facility] Comment on above: Order Comment: Speci men Type: BLOOD SPECIMENOrdering Facility: [facility] Address: [address] [place] [address] Performed By: #### 5 7021-8 ####[facility]ATORYCLIA [id number] [address] [place] Erythrocyte distribution width (RBC) [Ratio] 17.1 % High 11.5-15.0 [facility] Comment on above: Order Comment: Speci men Type: BLOOD SPECIMENOrdering Facility: [facility] Address: [address] [place] [address] Performed By: #### 5 7021-8 ####[facility]ATORYCLIA [id number] [address] [place] Hematocrit (Bld) [Volume fraction] 25.3 % Low 39.0-51.0 [facility] Comment on above: Order Comment: Speci men Type: BLOOD SPECIMENOrdering Facility: [facility] Address: [address] [place] [address] Performed By: #### 5 7021-8 ####[facility]ORYCLIA [id number] [address] [place] Hemoglobin (Bld) [Mass/Vol] 7.9 g/dL Low 13.0-17.0 [facility] Comment on above: Order Comment: Speci men Type: BLOOD SPECIMENOrdering Facility: [facility] Address: [address] [place] [address] Performed By: #### 5 7021-8 ####[facility]ATORYCLIA [id number] [address] IMMATURE GRAN % 0.5 % Normal [facility] Comment on above: Order Comment: Speci men Type: BLOOD SPECIMENOrdering Facility: [facility] Address: [address] [place] [address] Performed By: #### 5 7021-8 ####[facility]ORYCLIA [id number] [address] IMMATURE GRAN ABS 0.04 k/uL Normal <0.10 [facility] Comment on above: Order Comment: Speci men Type: BLOOD SPECIMENOrdering Facility: [facility] Address: [address] [place] [address] Performed By: #### 5 7021-8 ####[facility]ATORYCLIA [id number] [address] [place] Lymphocytes (Bld) [#/Vol] 1.69 10*3/uL Normal 1.00-4.00 [facility] Comment on above: Order Comment: Speci men Type: BLOOD SPECIMENOrdering Facility: [facility] Address: [address] [place] [address] Performed By: #### 5 7021-8 ####[facility]ATORYCLIA [id number] [address] [place] Lymphocytes/100 WBC (Bld) 20.1 % Normal [facility] Comment on above: Order Comment: Speci men Type: BLOOD SPECIMENOrdering Facility: [facility] Address: [address] [place] [address] Performed By: #### 5 7021-8 ####[facility]ATORYCLIA [id number] [address] [place] [facility] MCH (RBC) [Entitic mass] 28.5 pg Normal 26.0-34.0 [facility] Comment on above: Order Comment: Speci men Type: BLOOD SPECIMENOrdering Facility: [facility] Address: [address] [place] [address] Performed By: #### 5 7021-8 ####[facility]ATORYCLIA [id number] [address] MCHC (RBC) [Mass/Vol] 31.2 g/dL Normal 30.5-36.0 [facility] Comment on above: Order Comment: Speci men Type: BLOOD SPECIMENOrdering Facility: [facility] Address: [address] [place] [address] Performed By: #### 5 7021-8 ####[facility]ATORYCLIA [id number] [address] MCV (RBC) [Entitic vol] 91.3 fL Normal 80.0-100.0 [facility] Comment on above: Order Comment: Speci men Type: BLOOD SPECIMENOrdering Facility: [facility] Address: [address] [place] [address] Performed By: #### 5 7021-8 ####[facility]ATORYCLIA [id number] [address] Monocytes (Bld) [#/Vol] 0.53 10*3/uL Normal <0.87 [facility] Comment on above: Order Comment: Speci men Type: BLOOD SPECIMENOrdering Facility: [facility] Address: [address] [place] [address] Performed By: #### 5 7021-8 ####[facility]ORATORYCLIA [id number] [address] [place] Monocytes/100 WBC (Bld) 6.3 % Normal [facility] Comment on above: Order Comment: Speci men Type: BLOOD SPECIMENOrdering Facility: [facility] Address: [address] [place] [address] Performed By: #### 5 7021-8 ####[facility]ATORYCLIA [id number] [address] [place] Neutrophils (Bld) [#/Vol] 5.90 10*3/uL Normal 1.45-7.50 [facility] Comment on above: Order Comment: Speci men Type: BLOOD SPECIMENOrdering Facility: [facility] Address: [address] [place] [address] Performed By: #### 5 7021-8 ####[facility]ATORYCLIA [id number] [address] Neutrophils/100 WBC (Bld) 70.3 % Normal [facility] Comment on above: Order Comment: Speci men Type: BLOOD SPECIMENOrdering Facility: [facility] Address: [address] [place] [address] Performed By: #### 5 7021-8 ####[facility]ATORYCLIA [id number] [address] [place] Nucleated RBC (Bld) [#/Vol] 10*3/uL Normal <0.01 [facility] Comment on above: Order Comment: Speci men Type: BLOOD SPECIMENOrdering Facility: [facility] Address: [address] [place] [address] Performed By: #### 5 7021-8 ####[facility]ATORYCLIA [id number] [address] [place] Nucleated RBC/100 WBC (Bld) [Ratio] 0.0 /100 WBC Normal [facility] Comment on above: Order Comment: Speci men Type: BLOOD SPECIMENOrdering Facility: [facility] Address: [address] [place], [place] [address] Performed By: #### 5 7021-8 ####[facility]ATORYCLIA [id number] [address] Platelet mean volume (Bld) [Entitic vol] 9.8 fL Normal 9.0-12.7 [facility] Comment on above: Order Comment: Speci men Type: BLOOD SPECIMENOrdering Facility: [facility] Address: [address] [place], [place] [address] Performed By: #### 5 7021-8 ####[facility]ATORYCLIA [id number] [address] [place] Platelets (Bld) [#/Vol] 164 10*3/uL Normal 150-400 [facility] Comment on above: Order Comment: Speci men Type: BLOOD SPECIMENOrdering Facility: [facility] Address: [address] [place] [address] Performed By: #### 5 7021-8 ####[facility]ATORYCLIA [id number] [place] [address] [place] RBC (Bld) [#/Vol] 2.77 10*6/uL Low 4.20-6.00 [facility] Comment on above: Order Comment: Speci men Type: BLOOD SPECIMENOrdering Facility: [facility] Address: [address] [place], [place] [address] Performed By: #### 5 7021-8 ####[facility]ATORYCLIA [id number] [address] [place] WBC (Bld) [#/Vol] 8.39 10*3/uL Normal 3.70-11.00 [facility] Comment on above: Order Comment: Speci men Type: BLOOD SPECIMENOrdering Facility: [facility] Address: [address] [place] [address] Performed By: #### 5 7021-8 ####[facility]ATORYCLIA [id number] [address] OF [facility] CT BRAIN WO IVCONon 08-13-19 CT BRAIN WO IVCON Normal [facility] CT BRAIN WO IVCON Normal [facility] Magnesium SerPl-mCncon 08-12 Magnesium [Mass/Vol] 2.0 mg/dL Normal 1.7-2.3 [facility] Comment on above: Order Comment: Speci men Type: BLOOD SPECIMENOrdering Facility: [facility] Address: [address] [place] [address] Performed By: #### 2 4321-2, 63712-9, 2777-1 ####[facility]ORYCLIA [id number] [address] Phosphate SerPl-mCncon 08-12 Phosphate [Mass/Vol] 2.9 mg/dL Normal 2.7-4.8 [facility] Comment on above: Order Comment: Speci men Type: BLOOD SPECIMENOrdering Facility: [facility] Address: [address] [place] [address] Performed By: #### 2 4321-2, 67221-0, 2777-1 ####[facility]ORYCLIA [id number] [address] OF [facility] THERAPY NTon 08-12-2021 THERAPY NT Normal [facility] THERAPY NT Normal [facility] aPTT PPPon 08-12-2021 aPTT Coag (PPP) [Time] 94.2 s High 23.0-32.4 [facility] Comment on above: Order Comment: Speci men Type: BLOOD SPECIMENOrdering Facility: [facility] Address: [address] [place] [address] Performed By: #### 1 4979-9 ####[facility]ORYCLIA [id number] [address] [place] aPTT Coag (PPP) [Time] 84.4 s High 23.0-32.4 [facility] Comment on above: Order Comment: Speci men Type: BLOOD SPECIMENOrdering Facility: [facility] Address: [address] [address] Performed By: #### 1 4979-9 ####[facility]ATORYCLIA [id number] [address] aPTT Coag (PPP) [Time] 71.3 s High 23.0-32.4 [facility] Comment on above: Order Comment: Speci men Type: BLOOD SPECIMENOrdering Facility: [facility] Address: [address] [place] [address] Performed By: #### 1 4979-9 ####[facility]ATORYCLIA [id number] [address] ALLIED HEALTHon 08-11-2021 ALLIED HEALTH Normal [facility] CBC W Auto Differential pane l (Bld)on 08-11-2021 Basophils (Bld) [#/Vol] 10*3/uL Normal <0.11 [facility] Comment on above: Order Comment: Speci men Type: BLOOD SPECIMENOrdering Facility: [facility] Address: [address] [place] [address] Performed By: #### 5 7021-8 ####[facility]ATORYCLIA [id number] [address] Basophils/100 WBC (Bld) 0.2 % Normal [facility] Comment on above: Order Comment: Speci men Type: BLOOD SPECIMENOrdering Facility: [facility] Address: [address] [place] [address] Performed By: #### 5 7021-8 ####[facility]ORYCLIA [id number] [address] Differential cell count method Nom (Bld) Auto Normal [facility] Comment on above: Order Comment: Speci men Type: BLOOD SPECIMENOrdering Facility: [facility] Address: [address] [place] [address] Performed By: #### 5 7021-8 ####[facility]ORYCLIA [id number] [address] [place] Eosinophils (Bld) [#/Vol] 0.16 10*3/uL Normal <0.46 [facility] Comment on above: Order Comment: Speci men Type: BLOOD SPECIMENOrdering Facility: [facility] Address: [address] [place] [address] Performed By: #### 5 7021-8 ####[facility]ATORYCLIA [id number] [address] [place] Eosinophils/100 WBC (Bld) 1.8 % Normal [facility] Comment on above: Order Comment: Speci men Type: BLOOD SPECIMENOrdering Facility: [facility] Address: [address] [place] [address] Performed By: #### 5 7021-8 ####[facility]ATORYCLIA [id number] [address] [place] Erythrocyte distribution width (RBC) [Ratio] 17.3 % High 11.5-15.0 [facility] Comment on above: Order Comment: Speci men Type: BLOOD SPECIMENOrdering Facility: [facility] Address: [address] [place] [address] Performed By: #### 5 7021-8 ####[facility]ATORYCLIA [id number] [address] [place] Hematocrit (Bld) [Volume fraction] 26.6 % Low 39.0-51.0 [facility] Comment on above: Order Comment: Speci men Type: BLOOD SPECIMENOrdering Facility: [facility] Address: [address] [place] [address] Performed By: #### 5 7021-8 ####[facility]ATORYCLIA [id number] [address] [place] Hemoglobin (Bld) [Mass/Vol] 8.2 g/dL Low 13.0-17.0 [facility] Comment on above: Order Comment: Speci men Type: BLOOD SPECIMENOrdering Facility: [facility] Address: [address] [place] [address] Performed By: #### 5 7021-8 ####[facility]ORATORYCLIA [id number] [address] IMMATURE GRAN % 0.6 % Normal [facility] Comment on above: Order Comment: Speci men Type: BLOOD SPECIMENOrdering Facility: [facility] Address: [address] [place] [address] Performed By: #### 5 7021-8 ####[facility]ATORYCLIA [id number] [address] IMMATURE GRAN ABS 0.05 k/uL Normal <0.10 [facility] Comment on above: Order Comment: Speci men Type: BLOOD SPECIMENOrdering Facility: [facility] Address: [address] [place] [address] Performed By: #### 5 7021-8 ####[facility]ATORYCLIA [id number] [address] Lymphocytes (Bld) [#/Vol] 1.40 10*3/uL Normal 1.00-4.00 [facility] Comment on above: Order Comment: Speci men Type: BLOOD SPECIMENOrdering Facility: [facility] Address: [address] [place] [address] Performed By: #### 5 7021-8 ####[facility]ATORYCLIA [id number] [address] Lymphocytes/100 WBC (Bld) 15.8 % Normal [facility] Comment on above: Order Comment: Speci men Type: BLOOD SPECIMENOrdering Facility: [facility] Address: [address] [place] [address] Performed By: #### 5 7021-8 ####[facility]ORYCLIA [id number] [address] MCH (RBC) [Entitic mass] 28.4 pg Normal 26.0-34.0 [facility] Comment on above: Order Comment: Speci men Type: BLOOD SPECIMENOrdering Facility: [facility] Address: [address] [place] [address] Performed By: #### 5 7021-8 ####[facility]ATORYCLIA [id number] [address] STATES [facility] MCHC (RBC) [Mass/Vol] 30.8 g/dL Normal 30.5-36.0 [facility] Comment on above: Order Comment: Speci men Type: BLOOD SPECIMENOrdering Facility: [facility] Address: [address] [place] [address] Performed By: #### 5 7021-8 ####[facility]ATORYCLIA [id number] [address] MCV (RBC) [Entitic vol] 92.0 fL Normal 80.0-100.0 [facility] Comment on above: Order Comment: Speci men Type: BLOOD SPECIMENOrdering Facility: [facility] Address: [address] [place] [address] Performed By: #### 5 7021-8 ####[facility]ATORYCLIA [id number] [address] STATES OF [facility] Monocytes (Bld) [#/Vol] 0.61 10*3/uL Normal <0.87 [facility] Comment on above: Order Comment: Speci men Type: BLOOD SPECIMENOrdering Facility: [facility] Address: [address] [place] [address] Performed By: #### 5 7021-8 ####[facility]ATORYCLIA [id number] [address] Monocytes/100 WBC (Bld) 6.9 % Normal [facility] Comment on above: Order Comment: Speci men Type: BLOOD SPECIMENOrdering Facility: [facility] Address: [address] [place] [address] Performed By: #### 5 7021-8 ####[facility]ATORYCLIA [id number] [address] [place] Neutrophils (Bld) [#/Vol] 6.62 10*3/uL Normal 1.45-7.50 [facility] Comment on above: Order Comment: Speci men Type: BLOOD SPECIMENOrdering Facility: [facility] Address: [address] [place] [address] Performed By: #### 5 7021-8 ####[facility]ATORYCLIA [id number] [address] Neutrophils/100 WBC (Bld) 74.7 % Normal [facility] Comment on above: Order Comment: Speci men Type: BLOOD SPECIMENOrdering Facility: [facility] Address: [address] [place] [address] Performed By: #### 5 7021-8 ####[facility]ATORYCLIA [id number] [address] [place] Nucleated RBC (Bld) [#/Vol] 10*3/uL Normal <0.01 [facility] Comment on above: Order Comment: Speci men Type: BLOOD SPECIMENOrdering Facility: [facility] Address: [address] [place] [address] Performed By: #### 5 7021-8 ####[facility]ATORYCLIA [id number] [address] Nucleated RBC/100 WBC (Bld) [Ratio] 0.0 /100 WBC Normal [facility] Comment on above: Order Comment: Speci men Type: BLOOD SPECIMENOrdering Facility: [facility] Address: [address] [place] [address] Performed By: #### 5 7021-8 ####[facility]ATORYCLIA [id number] [address] Platelet mean volume (Bld) [Entitic vol] 9.8 fL Normal 9.0-12.7 [facility] Comment on above: Order Comment: Speci men Type: BLOOD SPECIMENOrdering Facility: [facility] Address: [address] [place] [address] Performed By: #### 5 7021-8 ####[facility]ATORYCLIA [id number] [address] [place] Platelets (Bld) [#/Vol] 157 10*3/uL Normal 150-400 [facility] Comment on above: Order Comment: Speci men Type: BLOOD SPECIMENOrdering Facility: [facility] Address: [address] [place] [address] Performed By: #### 5 7021-8 ####[facility]ATORYCLIA [id number] [address] RBC (Bld) [#/Vol] 2.89 10*6/uL Low 4.20-6.00 [facility] Comment on above: Order Comment: Speci men Type: BLOOD SPECIMENOrdering Facility: [facility] Address: [address] [place] [address] Performed By: #### 5 7021-8 ####[facility]ORATORYCLIA [id number] [address] WBC (Bld) [#/Vol] 8.86 10*3/uL Normal 3.70-11.00 [facility] Comment on above: Order Comment: Speci men Type: BLOOD SPECIMENOrdering Facility: [facility] Address: [address] [place] [address] Performed By: #### 5 7021-8 ####[facility]ATORYCLIA [id number] [address] CBC panel Auto (Bld)on 08-11 Erythrocyte distribution width (RBC) [Ratio] 17.2 % High 11.5-15.0 [facility] Comment on above: Order Comment: Speci men Type: BLOOD SPECIMENOrdering Facility: [facility] Address: [address] [place] [address] Performed By: #### 5 8410-2 ####[facility]ORATORYCLIA [id number] [address] Hematocrit (Bld) [Volume fraction] 27.0 % Low 39.0-51.0 [facility] Comment on above: Order Comment: Speci men Type: BLOOD SPECIMENOrdering Facility: [facility] Address: [address] [place] [address] Performed By: #### 5 8410-2 ####[facility]ORATORYCLIA [id number] [address] OF [facility] Hemoglobin (Bld) [Mass/Vol] 8.3 g/dL Low 13.0-17.0 [facility] Comment on above: Order Comment: Speci men Type: BLOOD SPECIMENOrdering Facility: [facility] Address: [address] [place] [address] Performed By: #### 5 8410-2 ####[facility]ORATORYCLIA [id number] [address] STATES OF [facility] MCH (RBC) [Entitic mass] 28.7 pg Normal 26.0-34.0 [facility] Comment on above: Order Comment: Speci men Type: BLOOD SPECIMENOrdering Facility: [facility] Address: [address] [place] [address] Performed By: #### 5 8410-2 ####[facility]ATORYCLIA [id number] [address] MCHC (RBC) [Mass/Vol] 30.7 g/dL Normal 30.5-36.0 [facility] Comment on above: Order Comment: Speci men Type: BLOOD SPECIMENOrdering Facility: [facility] Address: [address] [place] [address] Performed By: #### 5 8410-2 ####[facility]ORATORYCLIA [id number] [address] MCV (RBC) [Entitic vol] 93.4 fL Normal 80.0-100.0 [facility] Comment on above: Order Comment: Speci men Type: BLOOD SPECIMENOrdering Facility: [facility] Address: [address] [place] [address] Performed By: #### 5 8410-2 ####[facility]ATORYCLIA [id number] [address] [place] Nucleated RBC (Bld) [#/Vol] 10*3/uL Normal <0.01 [facility] Comment on above: Order Comment: Speci men Type: BLOOD SPECIMENOrdering Facility: [facility] Address: [address] [place] [address] Performed By: #### 5 8410-2 ####[facility]ORATORYCLIA [id number] [address] [place] Platelet mean volume (Bld) [Entitic vol] 9.8 fL Normal 9.0-12.7 [facility] Comment on above: Order Comment: Speci men Type: BLOOD SPECIMENOrdering Facility: [facility] Address: [address] [place] [address] Performed By: #### 5 8410-2 ####[facility]ORATORYCLIA [id number] [address] [place] Platelets (Bld) [#/Vol] 169 10*3/uL Normal 150-400 [facility] Comment on above: Order Comment: Speci men Type: BLOOD SPECIMENOrdering Facility: [facility] Address: [address] [place] [address] Performed By: #### 5 8410-2 ####[facility]ORATORYCLIA [id number] [address] [place] RBC (Bld) [#/Vol] 2.89 10*6/uL Low 4.20-6.00 [facility] Comment on above: Order Comment: Speci men Type: BLOOD SPECIMENOrdering Facility: [facility] Address: [address] [place] [address] Performed By: #### 5 8410-2 ####[facility]ORATORYCLIA [id number] [address] [place] WBC (Bld) [#/Vol] 9.03 10*3/uL Normal 3.70-11.00 [facility] Comment on above: Order Comment: Shira feldman Type: BLOOD SPECIMENOrdering Facility: [facility] Address: [address] [place] [address] Performed By: #### 5 8410-2 ####[facility] LABORATORYCLIA [id number] [address] STATES OF [facility] BRAIN WO IVCONon 08-12-19 CT BRAIN WO IVCON Normal [facility] PT panel Coag (PPP)on 2021 INR Coag (PPP) [Relative time] 1.0 {INR} Normal 0.9-1.3 [facility] Comment on above: Order Comment: Shira feldman Type: BLOOD SPECIMENOrdering Facility: [facility] Address: [address] [place] [address] Result Comment: Yris min K Antagonist (VKA) Therapeutic Range: INR 2 to 3 (Target INR of 2.5)Note: For patients treated with VKA drugs, such as warfarin, the [employer] 2012 Guideline recommends [...] al. Chest 2012, 141:7S-47SAlba RA, et al. [facility] 2017, 70: 252-289 Performed By: #### 1 4979-9, 09508-8 ####[facility]ORATORYCLIA [id number] [address] STATES OF [facility] PT Coag (PPP) [Time] 11.4 s Normal 9.7-13.0 [facility] Comment on above: Order Comment: Shira feldman Type: BLOOD SPECIMENOrdering Facility: [facility] Address: [address] [place] [address] Performed By: #### 1 4979-9, 04950-6 ####[facility]ATORYCLIA [id number] [address] [place] THERAPY NTon 08-11-2021 THERAPY NT Normal [facility] US DVT LOWER BILon 2 US DVT LOWER RAINER Normal [facility] US DVT UPPER BILon 2 US DVT UPPER RAINER Normal [facility] aPTT PPPon 08-11-2021 aPTT Coag (PPP) [Time] 26.9 s Normal 23.0-32.4 [facility] Comment on above: Order Comment: Speci men Type: BLOOD SPECIMENOrdering Facility: [facility] Address: [address] [place] [address] Performed By: #### 1 4979-9, 95297-1 ####[facility]ATORYCLIA [id number] [place] [address] [place] Basic metabolic 2000 panelon 08-10-2021 Anion gap [Moles/Vol] 11 mmol/L Normal 9-18 [facility] Comment on above: Order Comment: Speci men Type: BLOOD SPECIMENOrdering Facility: [facility] Address: [address] [place] [address] Performed By: #### 2 4321-2 ####[facility]ORATORYCLIA [id number] [place] [address] [place] Calcium [Mass/Vol] 8.7 mg/dL Normal 8.5-10.2 [facility] Comment on above: Order Comment: Speci men Type: BLOOD SPECIMENOrdering Facility: [facility] Address: [address] [place] [address] Performed By: #### 2 4321-2 ####[facility]ORATORYCLIA [id number] [address] [place] Chloride [Moles/Vol] 98 mmol/L Normal 97-105 [facility] Comment on above: Order Comment: Speci men Type: BLOOD SPECIMENOrdering Facility: [facility] Address: [address] [place] [address] Performed By: #### 2 4321-2 ####[facility]ORATORYCLIA [id number] [address] [place] CO2 [Moles/Vol] 28 mmol/L Normal 22-30 [facility] Comment on above: Order Comment: Speci men Type: BLOOD SPECIMENOrdering Facility: [facility] Address: [address] [place] [address] Performed By: #### 2 4321-2 ####[facility]ORATORYCLIA [id number] [address] STATES OF [facility] Creatinine [Mass/Vol] 0.59 mg/dL Low 0.73-1.22 [facility] Comment on above: Order Comment: Speci men Type: BLOOD SPECIMENOrdering Facility: [facility] Address: [address] [place] [address] Performed By: #### 2 4321-2 ####[facility]ORATORYCLIA [id number] [address] ESTIMATED GLOMERULAR FILTRATION RATE 105 mL/min/1.73m??? Normal >=60 [facility] Comment on above: Order Comment: Speci men Type: BLOOD SPECIMENOrdering Facility: [facility] Address: [address] [place] [address] Result Comment: Luzmaria mated Glomerular Filtration Rate [...] actual GFR. Performed By: #### 2 4321-2 ####[facility]ORATORYCLIA [id number] [address] [place] Glucose [Mass/Vol] 118 mg/dL High 74-99 [facility] Comment on above: Order Comment: Speci men Type: BLOOD SPECIMENOrdering Facility: [facility] Address: [address] [place] [address] Result Comment: The [place] Diabetes Association (ADA) provides guidance for cutoff [...] Standards of Medical Care in Diabetes 2016, [place] [employer]. Diabetes Care. 2016.39(Suppl 1). Performed By: #### 2 4321-2 ####[facility]ORATORYCLIA [id number] [place] [address] [place] Potassium [Moles/Vol] 3.7 mmol/L Normal 3.7-5.1 [facility] Comment on above: Order Comment: Speci [facility] Type: BLOOD SPECIMENOrdering Facility: [facility] Address: [address] [place] [address] Performed By: #### 2 4321-2 ####[facility]ORATORYCLIA [id number] [place] [address] [place] Sodium [Moles/Vol] 137 mmol/L Normal 136-144 [facility] Comment on above: Order Comment: Speci men Type: BLOOD SPECIMENOrdering Facility: [facility] Address: [address] [address] Performed By: #### 2 4321-2 ####[facility]ORATORYCLIA [id number] [place] [address] [place] Urea nitrogen [Mass/Vol] 23 mg/dL Normal 9-24 [facility] Comment on above: Order Comment: Speci men Type: BLOOD SPECIMENOrdering Facility: [facility] Address: [address] [address] Performed By: #### 2 4321-2 ####[facility]ORATORYCLIA [id number] [place] [address] [place] Anion gap [Moles/Vol] 17 mmol/L Normal 9-18 [facility] Comment on above: Order Comment: Speci men Type: BLOOD SPECIMENOrdering Facility: [facility] Address: [address] [place] [address] Performed By: #### 1 9123-9, 2777, 97554-7 ####[facility]ORATORYCLIA [id number] [place] [address] [place] Calcium [Mass/Vol] 7.7 mg/dL Low 8.5-10.2 [facility] Comment on above: Order Comment: Speci men Type: BLOOD SPECIMENOrdering Facility: [facility] Address: [address] [place] [address] Performed By: #### 1 9123-9, 27711-04, 05379-7 ####[facility]ORATORYCLIA [id number] [place] [address] [place] Chloride [Moles/Vol] 86 mmol/L Low 97-105 [facility] Comment on above: Order Comment: Speci men Type: BLOOD SPECIMENOrdering Facility: [facility] Address: [address] [place] [address] Performed By: #### 1 9123-9, 27711-04, 81696-3 ####[facility]ORATORYCLIA [id number] [place] [address] [place] CO2 [Moles/Vol] 24 mmol/L Normal 22-30 [facility] Comment on above: Order Comment: Speci men Type: BLOOD SPECIMENOrdering Facility: [facility] Address: [address] [place] [address] Performed By: #### 1 9123-9, 2777, 72248-4 ####[facility]ORATORYCLIA [id number] [place] [address] [place] Creatinine [Mass/Vol] 0.53 mg/dL Low 0.73-1.22 [facility] Comment on above: Order Comment: Shira feldman Type: BLOOD SPECIMENOrdering Facility: [facility] Address: [address] [phone] Performed By: #### 1 9123-9, 2777-1, 06665-9 ####[facility]ORATORYCLIA [id number] [address] OF [facility] ESTIMATED GLOMERULAR FILTRATION RATE 108 mL/min/1.73m??? Normal >=60 [facility] Comment on above: Order Comment: Shira feldman Type: BLOOD SPECIMENOrdering Facility: [facility] Address: [address] [place] [address] Result Comment: Luzmaria mated Glomerular Filtration Rate [...] GFR. Performed By: #### 1 9123-9, 2777-1, 54050-8 ####[facility]ORATORYCLIA [id number] [address] [place] Glucose [Mass/Vol] 455 mg/dL High 74-99 [facility] Comment on above: Order Comment: Shira feldman Type: BLOOD SPECIMENOrdering Facility: [facility] Address: [address] [address] Result Comment: The [place] Diabetes Association (ADA) provides guidance for cutoff [...] Standards of Medical Care in Diabetes 2016, [place] [employer]. Diabetes Care. 2016.39(Suppl 1). Performed By: #### 1 9123-9, 2777-1, 49385-3 ####[facility]ORATORYCLIA [id number] [place] [address] [place] Potassium [Moles/Vol] 3.4 mmol/L Low 3.7-5.1 [facility] Comment on above: Order Comment: Speci men Type: BLOOD SPECIMENOrdering Facility: [facility] Address: [address] [place] [address] Performed By: #### 1 9123-9, 2777-, 30745-6 ####[facility]ORATORYCLIA [id number] [address] STATES OF [facility] Sodium [Moles/Vol] 127 mmol/L Low 136-144 [facility] Comment on above: Order Comment: Speci men Type: BLOOD SPECIMENOrdering Facility: [facility] Address: [address] [place] [address] Performed By: #### 1 9123-9, 2777-, 99216-8 ####[facility]ORATORYCLIA [id number] [address] STATES OF [facility] Urea nitrogen [Mass/Vol] 21 mg/dL Normal 9-24 [facility] Comment on above: Order Comment: Speci men Type: BLOOD SPECIMENOrdering Facility: [facility] Address: [address] [place] [address] Performed By: #### 1 9123-9, 2777-, 53950-8 ####[facility]ORATORYCLIA [id number] [address] STATES [place] CASE MANAGEMon 08-10-2021 CASE MANAGEM Normal [facility] CBC W Auto Differential pane l (Bld)on 08-10-2021 Basophils (Bld) [#/Vol] 0.04 10*3/uL Normal <0.11 [facility] Comment on above: Order Comment: Speci men Type: BLOOD SPECIMENOrdering Facility: [facility] Address: [address] [address] Performed By: #### 5 7021-8 ####[facility] LABORATORYCLIA [id number] [address] Basophils/100 WBC (Bld) 0.4 % Normal [facility] Comment on above: Order Comment: Speci men Type: BLOOD SPECIMENOrdering Facility: [facility] Address: [address] [place] [address] Performed By: #### 5 7021-8 ####[facility]ORATORYCLIA [id number] [address] Differential cell count method Nom (Bld) Auto Normal [facility] Comment on above: Order Comment: Speci men Type: BLOOD SPECIMENOrdering Facility: [facility] Address: [address] [place] [address] Performed By: #### 5 7021-8 ####[facility]ORATORYCLIA [id number] [address] [place] Eosinophils (Bld) [#/Vol] 0.11 10*3/uL Normal <0.46 [facility] Comment on above: Order Comment: Speci men Type: BLOOD SPECIMENOrdering Facility: [facility] Address: [address] [place] [address] Performed By: #### 5 7021-8 ####[facility]ORATORYCLIA [id number] [address] Eosinophils/100 WBC (Bld) 1.1 % Normal [facility] Comment on above: Order Comment: Speci men Type: BLOOD SPECIMENOrdering Facility: [facility] Address: [address] [place] [address] Performed By: #### 5 7021-8 ####[facility]ORATORYCLIA [id number] [address] [place] Erythrocyte distribution width (RBC) [Ratio] 17.2 % High 11.5-15.0 [facility] Comment on above: Order Comment: Speci men Type: BLOOD SPECIMENOrdering Facility: [facility] Address: [address] [place] [address] Performed By: #### 5 7021-8 ####[facility]ATORYCLIA [id number] [address] Hematocrit (Bld) [Volume fraction] 25.5 % Low 39.0-51.0 [facility] Comment on above: Order Comment: Speci men Type: BLOOD SPECIMENOrdering Facility: [facility] Address: [address] [place] [address] Performed By: #### 5 7021-8 ####[facility]ORATORYCLIA [id number] [address] Hemoglobin (Bld) [Mass/Vol] 7.9 g/dL Low 13.0-17.0 [facility] Comment on above: Order Comment: Speci men Type: BLOOD SPECIMENOrdering Facility: [facility] Address: [address] [place] [address] Performed By: #### 5 7021-8 ####[facility]ORATORYCLIA [id number] [address] IMMATURE GRAN % 0.4 % Normal [facility] Comment on above: Order Comment: Speci men Type: BLOOD SPECIMENOrdering Facility: [facility] Address: [address] [place] [address] Performed By: #### 5 7021-8 ####[facility]ORATORYCLIA [id number] [address] IMMATURE GRAN ABS 0.04 k/uL Normal <0.10 [facility] Comment on above: Order Comment: Speci men Type: BLOOD SPECIMENOrdering Facility: [facility] Address: [address] [place] [address] Performed By: #### 5 7021-8 ####[facility]ORATORYCLIA [id number] [place] [address] [place] Lymphocytes (Bld) [#/Vol] 1.66 10*3/uL Normal 1.00-4.00 [facility] Comment on above: Order Comment: Speci men Type: BLOOD SPECIMENOrdering Facility: [facility] Address: [address] [place] [address] Performed By: #### 5 7021-8 ####[facility]ORATORYCLIA [id number] [address] Lymphocytes/100 WBC (Bld) 16.2 % Normal [facility] Comment on above: Order Comment: Speci men Type: BLOOD SPECIMENOrdering Facility: [facility] Address: [address] [place] [address] Performed By: #### 5 7021-8 ####[facility]ORATORYCLIA [id number] [address] [place] MCH (RBC) [Entitic mass] 28.5 pg Normal 26.0-34.0 [facility] Comment on above: Order Comment: Speci men Type: BLOOD SPECIMENOrdering Facility: [facility] Address: [address] [place] [address] Performed By: #### 5 7021-8 ####[facility]ORATORYCLIA [id number] [address] STATES OF [facility] MCHC (RBC) [Mass/Vol] 31.0 g/dL Normal 30.5-36.0 [facility] Comment on above: Order Comment: Speci men Type: BLOOD SPECIMENOrdering Facility: [facility] Address: [address] [place] [address] Performed By: #### 5 7021-8 ####[facility]ORATORYCLIA [id number] [address] MCV (RBC) [Entitic vol] 92.1 fL Normal 80.0-100.0 [facility] Comment on above: Order Comment: Speci men Type: BLOOD SPECIMENOrdering Facility: [facility] Address: [address] [place] [address] Performed By: #### 5 7021-8 ####[facility]ORATORYCLIA [id number] [place] [address] [place] Monocytes (Bld) [#/Vol] 0.51 10*3/uL Normal <0.87 [facility] Comment on above: Order Comment: Speci men Type: BLOOD SPECIMENOrdering Facility: [facility] Address: [address] [place] [address] Performed By: #### 5 7021-8 ####[facility]ORATORYCLIA [id number] [address] [place] Monocytes/100 WBC (Bld) 5.0 % Normal [facility] Comment on above: Order Comment: Speci men Type: BLOOD SPECIMENOrdering Facility: [facility] Address: [address] [place] [address] Performed By: #### 5 7021-8 ####[facility]ATORYCLIA [id number] [address] [place] Neutrophils (Bld) [#/Vol] 7.91 10*3/uL High 1.45-7.50 [facility] Comment on above: Order Comment: Speci men Type: BLOOD SPECIMENOrdering Facility: [facility] Address: [address] [place] [address] Performed By: #### 5 7021-8 ####[facility]ORATORYCLIA [id number] [address] [place] Neutrophils/100 WBC (Bld) 76.9 % Normal [facility] Comment on above: Order Comment: Speci men Type: BLOOD SPECIMENOrdering Facility: [facility] Address: [address] [place] [address] Performed By: #### 5 7021-8 ####[facility]ORATORYCLIA [id number] [place] [address] [place] Nucleated RBC (Bld) [#/Vol] 10*3/uL Normal <0.01 [facility] Comment on above: Order Comment: Speci men Type: BLOOD SPECIMENOrdering Facility: [facility] Address: [address] [place] [address] Performed By: #### 5 7021-8 ####[facility]ORATORYCLIA [id number] [address] [place] Nucleated RBC/100 WBC (Bld) [Ratio] 0.0 /100 WBC Normal [facility] Comment on above: Order Comment: Speci men Type: BLOOD SPECIMENOrdering Facility: [facility] Address: [address] [place] [address] Performed By: #### 5 7021-8 ####[facility]ORATORYCLIA [id number] [address] [place] Platelet mean volume (Bld) [Entitic vol] 10.3 fL Normal 9.0-12.7 [facility] Comment on above: Order Comment: Speci men Type: BLOOD SPECIMENOrdering Facility: [facility] Address: [address] [place] [address] Performed By: #### 5 7021-8 ####[facility]ORATORYCLIA [id number] [address] [place] Platelets (Bld) [#/Vol] 152 10*3/uL Normal 150-400 [facility] Comment on above: Order Comment: Speci men Type: BLOOD SPECIMENOrdering Facility: [facility] Address: [address] [place], [place] [address] Performed By: #### 5 7021-8 ####[facility]ORATORYCLIA [id number] [place] [address] [place] RBC (Bld) [#/Vol] 2.77 10*6/uL Low 4.20-6.00 [facility] Comment on above: Order Comment: Speci men Type: BLOOD SPECIMENOrdering Facility: [facility] Address: [address] [place] [address] Performed By: #### 5 7021-8 ####[facility]ORATORYCLIA [id number] [address] [place] WBC (Bld) [#/Vol] 10.27 10*3/uL Normal 3.70-11.00 [facility] Comment on above: Order Comment: Speci men Type: BLOOD SPECIMENOrdering Facility: [facility] Address: [address] [place] [address] Performed By: #### 5 7021-8 ####[facility]ORATORYCLIA [id number] [address] [place] Magnesium SerPl-mCncon 08-10 Magnesium [Mass/Vol] 1.8 mg/dL Normal 1.7-2.3 [facility] Comment on above: Order Comment: Speci men Type: BLOOD SPECIMENOrdering Facility: [facility] Address: [address] [place] [address] Performed By: #### 1 9123-9, 2777-1, 24357-2 ####[facility]ORATORYCLIA [id number] [address] [place] NURSING PROGon 08-10-2021 NURSING PROG Normal [facility] NURSING PROG Normal [facility] NUTRITIONon 08-10-2021 NUTRITION Normal [facility] Phosphate SerPl-mCncon 08-10 Phosphate [Mass/Vol] 3.7 mg/dL Normal 2.7-4.8 [facility] Comment on above: Order Comment: Speci men Type: BLOOD SPECIMENOrdering Facility: [facility] Address: [address] [place] [address] Performed By: #### 1 9123-9, 2777-1, 46700-6 ####[facility]ORATORYCLIA [id number] [address] [place] ALLIED HEALTHon 08-09-2021 ALLIED HEALTH Normal [facility] ANES POSTPROC EVALon 022 ANES POSTPROC EVAL Normal [facility] ANES PRE-OPon 08-09-2021 ANES PRE-OP Normal [facility] BRIEF OP NOTon 08-09-2021 BRIEF OP NOT Normal [facility] Basic metabolic 2000 panelon 08-09-2021 Anion gap [Moles/Vol] 8 mmol/L Low 9-18 [facility] Comment on above: Order Comment: Speci men Type: BLOOD SPECIMENOrdering Facility: [facility] Address: [address] [place] [address] Performed By: #### 2 4321-2, , 2776-05 ####[facility]ORATORYCLIA [id number] [place] [address] [place] Calcium [Mass/Vol] 9.2 mg/dL Normal 8.5-10.2 [facility] Comment on above: Order Comment: Speci men Type: BLOOD SPECIMENOrdering Facility: [facility] Address: [address] [place] [address] Performed By: #### 2 4321-2, , 2776-05 ####[facility]ORATORYCLIA [id number] [place] [address] [place] Chloride [Moles/Vol] 97 mmol/L Normal 97-105 [facility] Comment on above: Order Comment: Speci men Type: BLOOD SPECIMENOrdering Facility: [facility] Address: [address] [place] [address] Performed By: #### 2 4321-2, , 2776-05 ####[facility]ORATORYCLIA [id number] [place] [address] [place] CO2 [Moles/Vol] 30 mmol/L Normal 22-30 [facility] Comment on above: Order Comment: Speci men Type: BLOOD SPECIMENOrdering Facility: [facility] Address: [address] [place] [address] Performed By: #### 2 4321-2, , 2776-05 ####[facility]ORATORYCLIA [id number] [place] [address] [place] Creatinine [Mass/Vol] 0.51 mg/dL Low 0.73-1.22 [facility] Comment on above: Order Comment: Shira feldman Type: BLOOD SPECIMENOrdering Facility: [facility] Address: [address] [place] [phone] Performed By: #### 2 4321-2, , 2776-05 ####[facility]ORATORYCLIA [id number] [address] [id number] [place] ESTIMATED GLOMERULAR FILTRATION RATE 110 mL/min/1.73m??? Normal >=60 [facility] Comment on above: Order Comment: Shira francia Type: BLOOD SPECIMENOrdering Facility: [facility] Address: [address] [phone] Result Comment: Luzmaria mated Glomerular Filtration Rate [...] Performed By: #### 2 4321-2, , 2776-05 ####[facility]ORATORYCLIA [id number] [place] [address] [place] Glucose [Mass/Vol] 106 mg/dL High 74-99 [facility] Comment on above: Order Comment: Shira feldman Type: BLOOD SPECIMENOrdering Facility: [facility] Address: [address] [place] [address] Result Comment: The [place] Diabetes Association (ADA) provides guidance for cutoff [...] Standards of Medical Care in Diabetes 2016, [place] [employer]. Diabetes Care. 2016.39(Suppl 1). Performed By: #### 2 4321-2, , 2776- ####[facility]ORATORYCLIA [id number] [place] [address] [place] Potassium [Moles/Vol] 4.1 mmol/L Normal 3.7-5.1 [facility] Comment on above: Order Comment: Speci men Type: BLOOD SPECIMENOrdering Facility: [facility] Address: [address] [place] [address] Performed By: #### 2 4321-2, , 2776-05 ####[facility]ORATORYCLIA [id number] [address] STATES OF [facility] Sodium [Moles/Vol] 135 mmol/L Low 136-144 [facility] Comment on above: Order Comment: Speci men Type: BLOOD SPECIMENOrdering Facility: [facility] Address: [address] [place] [address] Performed By: #### 2 4321-2, , 2776-05 ####[facility]ORATORYCLIA [id number] [place] [address] [place] Urea nitrogen [Mass/Vol] 26 mg/dL High 9-24 [facility] Comment on above: Order Comment: Speci men Type: BLOOD SPECIMENOrdering Facility: [facility] Address: [address] [place] [address] Performed By: #### 2 4321-2, , 2776-05 ####[facility]ORATORYCLIA [id number] [address] [id number] [place] CBC W Auto Differential pane l (Bld)on 08-09-2021 Basophils (Bld) [#/Vol] 0.06 10*3/uL Normal <0.11 [facility] Comment on above: Order Comment: Speci men Type: BLOOD SPECIMENOrdering Facility: [facility] Address: [address] [place] [address] Performed By: #### 5 7021-8 ####[facility]ORATORYCLIA [id number] [address] STATES [facility] Basophils/100 WBC (Bld) 0.5 % Normal [facility] Comment on above: Order Comment: Speci men Type: BLOOD SPECIMENOrdering Facility: [facility] Address: [address] [place] [address] Performed By: #### 5 7021-8 ####[facility]ORATORYCLIA [id number] [address] [place] Differential cell count method Nom (Bld) Auto Normal [facility] Comment on above: Order Comment: Speci men Type: BLOOD SPECIMENOrdering Facility: [facility] Address: [address] [place] [address] Performed By: #### 5 7021-8 ####[facility]ORATORYCLIA [id number] [address] [place] Eosinophils (Bld) [#/Vol] 0.42 10*3/uL Normal <0.46 [facility] Comment on above: Order Comment: Speci men Type: BLOOD SPECIMENOrdering Facility: [facility] Address: [address] [place] [address] Performed By: #### 5 7021-8 ####[facility]ORATORYCLIA [id number] [address] Eosinophils/100 WBC (Bld) 3.8 % Normal [facility] Comment on above: Order Comment: Speci men Type: BLOOD SPECIMENOrdering Facility: [facility] Address: [address] [place] [address] Performed By: #### 5 7021-8 ####[facility]ORATORYCLIA [id number] [address] [place] Erythrocyte distribution width (RBC) [Ratio] 17.6 % High 11.5-15.0 [facility] Comment on above: Order Comment: Speci men Type: BLOOD SPECIMENOrdering Facility: [facility] Address: [address] [address] Performed By: #### 5 7021-8 ####[facility] LABORATORYCLIA [id number] [address] Hematocrit (Bld) [Volume fraction] 29.3 % Low 39.0-51.0 [facility] Comment on above: Order Comment: Speci men Type: BLOOD SPECIMENOrdering Facility: [facility] Address: [address] [place] [address] Performed By: #### 5 7021-8 ####[facility] LABORATORYCLIA [id number] [address] Hemoglobin (Bld) [Mass/Vol] 9.0 g/dL Low 13.0-17.0 [facility] Comment on above: Order Comment: Speci men Type: BLOOD SPECIMENOrdering Facility: [facility] Address: [address] [place] [address] Performed By: #### 5 7021-8 ####[facility] LABORATORYCLIA [id number] [address] IMMATURE GRAN % 0.5 % Normal [facility] Comment on above: Order Comment: Speci men Type: BLOOD SPECIMENOrdering Facility: [facility] Address: [address] [place] [address] Performed By: #### 5 7021-8 ####[facility] LABORATORYCLIA [id number] [address] IMMATURE GRAN ABS 0.05 k/uL Normal <0.10 [facility] Comment on above: Order Comment: Speci men Type: BLOOD SPECIMENOrdering Facility: [facility] Address: [address] [place] [address] Performed By: #### 5 7021-8 ####[facility] LABORATORYCLIA [id number] [address] [place] Lymphocytes (Bld) [#/Vol] 2.00 10*3/uL Normal 1.00-4.00 [facility] Comment on above: Order Comment: Speci men Type: BLOOD SPECIMENOrdering Facility: [facility] Address: [address] [place] [address] Performed By: #### 5 7021-8 ####[facility] LABORATORYCLIA [id number] [address] Lymphocytes/100 WBC (Bld) 18.1 % Normal [facility] Comment on above: Order Comment: Speci men Type: BLOOD SPECIMENOrdering Facility: [facility] Address: [address] [place] [address] Performed By: #### 5 7021-8 ####[facility] LABORATORYCLIA [id number] [address] MCH (RBC) [Entitic mass] 28.1 pg Normal 26.0-34.0 [facility] Comment on above: Order Comment: Speci men Type: BLOOD SPECIMENOrdering Facility: [facility] Address: [address] [place] [address] Performed By: #### 5 7021-8 ####[facility] LABORATORYCLIA [id number] [address] MCHC (RBC) [Mass/Vol] 30.7 g/dL Normal 30.5-36.0 [facility] Comment on above: Order Comment: Speci men Type: BLOOD SPECIMENOrdering Facility: [facility] Address: [address] [place] [address] Performed By: #### 5 7021-8 ####[facility] LABORATORYCLIA [id number] [address] MCV (RBC) [Entitic vol] 91.6 fL Normal 80.0-100.0 [facility] Comment on above: Order Comment: Speci men Type: BLOOD SPECIMENOrdering Facility: [facility] Address: [address] [place] [address] Performed By: #### 5 7021-8 ####[facility] LABORATORYCLIA [id number] [place] [address] [place] Monocytes (Bld) [#/Vol] 0.68 10*3/uL Normal <0.87 [facility] Comment on above: Order Comment: Speci men Type: BLOOD SPECIMENOrdering Facility: [facility] Address: [address] [place] [address] Performed By: #### 5 7021-8 ####[facility] LABORATORYCLIA [id number] [address] [place] Monocytes/100 WBC (Bld) 6.2 % Normal [facility] Comment on above: Order Comment: Speci men Type: BLOOD SPECIMENOrdering Facility: [facility] Address: [address] [place] [address] Performed By: #### 5 7021-8 ####[facility] LABORATORYCLIA [id number] [address] [place] Neutrophils (Bld) [#/Vol] 7.82 10*3/uL High 1.45-7.50 [facility] Comment on above: Order Comment: Speci men Type: BLOOD SPECIMENOrdering Facility: [facility] Address: [address] [place] [address] Performed By: #### 5 7021-8 ####[facility] LABORATORYCLIA [id number] [address] [place] Neutrophils/100 WBC (Bld) 70.9 % Normal [facility] Comment on above: Order Comment: Speci men Type: BLOOD SPECIMENOrdering Facility: [facility] Address: [address] [place] [address] Performed By: #### 5 7021-8 ####[facility] LABORATORYCLIA [id number] [address] [place] Nucleated RBC (Bld) [#/Vol] 10*3/uL Normal <0.01 [facility] Comment on above: Order Comment: Speci men Type: BLOOD SPECIMENOrdering Facility: [facility] Address: [address] [place] [address] Performed By: #### 5 7021-8 ####[facility] LABORATORYCLIA [id number] [address] [place] Nucleated RBC/100 WBC (Bld) [Ratio] 0.0 /100 WBC Normal [facility] Comment on above: Order Comment: Speci men Type: BLOOD SPECIMENOrdering Facility: [facility] Address: [address] [place] [address] Performed By: #### 5 7021-8 ####[facility] LABORATORYCLIA [id number] [address] [place] Platelet mean volume (Bld) [Entitic vol] 10.1 fL Normal 9.0-12.7 [facility] Comment on above: Order Comment: Speci men Type: BLOOD SPECIMENOrdering Facility: [facility] Address: [address] [place] [address] Performed By: #### 5 7021-8 ####[facility] LABORATORYCLIA [id number] [address] [place] Platelets (Bld) [#/Vol] 160 10*3/uL Normal 150-400 [facility] Comment on above: Order Comment: Speci men Type: BLOOD SPECIMENOrdering Facility: [facility] Address: [address] [place] [address] Performed By: #### 5 7021-8 ####[facility] LABORATORYCLIA [id number] [address] [place] RBC (Bld) [#/Vol] 3.20 10*6/uL Low 4.20-6.00 [facility] Comment on above: Order Comment: Speci men Type: BLOOD SPECIMENOrdering Facility: [facility] Address: [address] [place] [address] Performed By: #### 5 7021-8 ####[facility] LABORATORYCLIA [id number] [address] [place] WBC (Bld) [#/Vol] 11.03 10*3/uL High 3.70-11.00 [facility] Comment on above: Order Comment: Speccara feldman Type: BLOOD SPECIMENOrdering Facility: [facility] Address: [address] [place] [address] Performed By: #### 5 7021-8 ####[facility] LABORATORYCLIA [id number] [address] [place] CONSULT PROGon 08-09-2021 CONSULT PROG Normal [facility] CT BRAIN WO IVCONon 08-10-19 CT BRAIN WO IVCON Normal [facility] CT BRAIN WO IVCON Normal [facility] Magnesium SerPl-mCncon 08-09 Magnesium [Mass/Vol] 2.0 mg/dL Normal 1.7-2.3 [facility] Comment on above: Order Comment: Shira feldman Type: BLOOD SPECIMENOrdering Facility: [facility] Address: [address] [place] [address] Performed By: #### 2 4321-2, 85989-7, 2777-1 ####[facility] LABORATORYCLIA [id number] [address] NURSING PROGon 08-09-2021 NURSING PROG Normal [facility] OPERATIVE NOon 08-09-2021 OPERATIVE NO Normal [facility] PT panel Coag (PPP)on 2021 INR Coag (PPP) [Relative time] 1.1 {INR} Normal 0.9-1.3 [facility] Comment on above: Order Comment: Shira feldman Type: BLOOD SPECIMENOrdering Facility: [facility] Address: [address] [place], [place] [address] Result Comment: Yris min K Antagonist (VKA) Therapeutic Range: INR 2 to 3 (Target INR of 2.5)Note: For patients treated with VKA drugs, such as warfarin, the [place] [employer] 2012 Guideline recommends [...] al. Chest 2012, 141:7S-47SAlba RA, et al. [facility] 2017, 70: 252-289 Performed By: #### 3 4528-0, 95446-0 ####[facility] LABORATORYCLIA [id number] [place] [address] [place] PT Coag (PPP) [Time] 11.7 s Normal 9.7-13.0 [facility] Comment on above: Order Comment: Speci men Type: BLOOD SPECIMENOrdering Facility: [facility] Address: [address] [place] [address] Performed By: #### 3 4528-0, 72222-6 ####[facility] LABORATORYCLIA [id number] [place] [address] [place] Phosphate SerPl-mCncon 08-09 Phosphate [Mass/Vol] 4.0 mg/dL Normal 2.7-4.8 [facility] Comment on above: Order Comment: Speci men Type: BLOOD SPECIMENOrdering Facility: [facility] Address: [address] [place] [address] Performed By: #### 2 4321-2, 97010-7, 2777-1 ####[facility] LABORATORYCLIA [id number] [place] [address] [place] THERAPY NTon 08-09-2021 THERAPY NT Normal [facility] THERAPY NT Normal [facility] TYPE AND SCREENon 08-09-2021 ABO O Normal [facility] Comment on above: Order Comment: Speci men Type: BLOOD SPECIMENOrdering Facility: [facility] Address: [address] [place] [address] Performed By: #### T SCR ####[facility] BLOOD BANKCLIA [id number] [address] HISTORICAL AB SCR STATUS Negative Normal [facility] Comment on above: Order Comment: Speci men Type: BLOOD SPECIMENOrdering Facility: [facility] Address: [address] [place] [address] Performed By: #### T SCR ####[facility] BLOOD BANKCLIA [id number] [address] Rh Nom (Bld) Positive Normal [facility] Comment on above: Order Comment: Speci men Type: BLOOD SPECIMENOrdering Facility: [facility] Address: [address] [place] [address] Performed By: #### T SCR ####[facility] BLOOD BANKCLIA [id number] [address] TYPE AND SCREEN EXPIRATION 08/12/2021 23:59 Normal [facility] Comment on above: Order Comment: Speci men Type: BLOOD SPECIMENOrdering Facility: [facility] Address: [address] [place] [address] Performed By: #### T SCR ####[facility] BLOOD BANKCLIA [id number] [address] OF [facility] XR ABD 2V SUPINE W UPR/DECUB /CTLon 08-09-2021 XR ABD 2V SUPINE W UPR/DECUB/CTL Normal [facility] XR CHEST 1V FRONTALon 2021 XR CHEST 1V FRONTAL Normal [facility] XR NECK SOFT TISSUE 2V AP/LA Ton 08-09-2021 XR NECK SOFT TISSUE 2V AP/LAT Normal [facility] XR SKULL 2V AP/LATon 022 XR SKULL 2V AP/LAT Normal [facility] aPTT PPPon 08-09-2021 aPTT Coag (PPP) [Time] 26.8 s Normal 23.0-32.4 [facility] Comment on above: Order Comment: Speci men Type: BLOOD SPECIMENOrdering Facility: [facility] Address: [address] [place] [address] Performed By: #### 3 4528-0, 70588-9 ####[facility] LABORATORYCLIA [id number] [address] CASE MANAGEMon 08-08-2021 CASE MANAGEM Normal [facility] CBC W Auto Differential pane l (Bld)on 08-08-2021 Basophils (Bld) [#/Vol] 0.05 10*3/uL Normal <0.11 [facility] Comment on above: Order Comment: Speci men Type: BLOOD SPECIMENOrdering Facility: [facility] Address: [address] [place] [address] Performed By: #### 5 7021-8 ####[facility] LABORATORYCLIA [id number] [address] Basophils/100 WBC (Bld) 0.5 % Normal [facility] Comment on above: Order Comment: Speci men Type: BLOOD SPECIMENOrdering Facility: [facility] Address: [address] [place] [address] Performed By: #### 5 7021-8 ####[facility] LABORATORYCLIA [id number] [address] Differential cell count method Nom (Bld) Auto Normal [facility] Comment on above: Order Comment: Speci men Type: BLOOD SPECIMENOrdering Facility: [facility] Address: [address] [place] [address] Performed By: #### 5 7021-8 ####[facility] LABORATORYCLIA [id number] [address] STATES [facility] Eosinophils (Bld) [#/Vol] 0.17 10*3/uL Normal <0.46 [facility] Comment on above: Order Comment: Speci men Type: BLOOD SPECIMENOrdering Facility: [facility] Address: [facility] [place] [address] Performed By: #### 5 7021-8 ####[facility] LABORATORYCLIA [id number] [address] Eosinophils/100 WBC (Bld) 1.6 % Normal [facility] Comment on above: Order Comment: Speci men Type: BLOOD SPECIMENOrdering Facility: [facility] Address: [address] [place] [address] Performed By: #### 5 7021-8 ####[facility] LABORATORYCLIA [id number] [address] Erythrocyte distribution width (RBC) [Ratio] 17.8 % High 11.5-15.0 [facility] Comment on above: Order Comment: Speci men Type: BLOOD SPECIMENOrdering Facility: [facility] Address: [address] [place] [address] Performed By: #### 5 7021-8 ####[facility] LABORATORYCLIA [id number] [address] Hematocrit (Bld) [Volume fraction] 29.6 % Low 39.0-51.0 [facility] Comment on above: Order Comment: Speci men Type: BLOOD SPECIMENOrdering Facility: [facility] Address: [address] [place] [address] Performed By: #### 5 7021-8 ####[facility] LABORATORYCLIA [id number] [address] Hemoglobin (Bld) [Mass/Vol] 9.0 g/dL Low 13.0-17.0 [facility] Comment on above: Order Comment: Speci men Type: BLOOD SPECIMENOrdering Facility: [facility] Address: [address] [place] [address] Performed By: #### 5 7021-8 ####[facility] LABORATORYCLIA [id number] [address] IMMATURE GRAN % 0.5 % Normal [facility] Comment on above: Order Comment: Speci men Type: BLOOD SPECIMENOrdering Facility: [facility] Address: [address] [place] [address] Performed By: #### 5 7021-8 ####[facility] LABORATORYCLIA [id number] [address] IMMATURE GRAN ABS 0.05 k/uL Normal <0.10 [facility] Comment on above: Order Comment: Speci men Type: BLOOD SPECIMENOrdering Facility: [facility] Address: [address] [place] [address] Performed By: #### 5 7021-8 ####[facility] LABORATORYCLIA [id number] [address] Lymphocytes (Bld) [#/Vol] 1.93 10*3/uL Normal 1.00-4.00 [facility] Comment on above: Order Comment: Speci men Type: BLOOD SPECIMENOrdering Facility: [facility] Address: [address] [place] [address] Performed By: #### 5 7021-8 ####[facility] LABORATORYCLIA [id number] [address] Lymphocytes/100 WBC (Bld) 18.2 % Normal [facility] Comment on above: Order Comment: Speci men Type: BLOOD SPECIMENOrdering Facility: [facility] Address: [address] [place] [address] Performed By: #### 5 7021-8 ####[facility] LABORATORYCLIA [id number] [address] MCH (RBC) [Entitic mass] 28.1 pg Normal 26.0-34.0 [facility] Comment on above: Order Comment: Speci men Type: BLOOD SPECIMENOrdering Facility: [facility] Address: [address] [place] [address] Performed By: #### 5 7021-8 ####[facility] LABORATORYCLIA [id number] [address] MCHC (RBC) [Mass/Vol] 30.4 g/dL Low 30.5-36.0 [facility] Comment on above: Order Comment: Speci men Type: BLOOD SPECIMENOrdering Facility: [facility] Address: [address] [place] [address] Performed By: #### 5 7021-8 ####[facility] LABORATORYCLIA [id number] [address] [place] MCV (RBC) [Entitic vol] 92.5 fL Normal 80.0-100.0 [facility] Comment on above: Order Comment: Speci men Type: BLOOD SPECIMENOrdering Facility: [facility] Address: [address] [place] [address] Performed By: #### 5 7021-8 ####[facility] LABORATORYCLIA [id number] [address] [place] Monocytes (Bld) [#/Vol] 0.75 10*3/uL Normal <0.87 [facility] Comment on above: Order Comment: Speci men Type: BLOOD SPECIMENOrdering Facility: [facility] Address: [address] [place] [address] Performed By: #### 5 7021-8 ####[facility] LABORATORYCLIA [id number] [address] [place] [facility] Monocytes/100 WBC (Bld) 7.1 % Normal [facility] Comment on above: Order Comment: Speci men Type: BLOOD SPECIMENOrdering Facility: [facility] Address: [address] [place] [address] Performed By: #### 5 7021-8 ####[facility] LABORATORYCLIA [id number] [address] [place] Neutrophils (Bld) [#/Vol] 7.65 10*3/uL High 1.45-7.50 [facility] Comment on above: Order Comment: Speci men Type: BLOOD SPECIMENOrdering Facility: [facility] Address: [address] [place] [address] Performed By: #### 5 7021-8 ####[facility] LABORATORYCLIA [id number] [address] [place] Neutrophils/100 WBC (Bld) 72.1 % Normal [facility] Comment on above: Order Comment: Speci men Type: BLOOD SPECIMENOrdering Facility: [facility] Address: [address] Performed By: #### 5 7021-8 ####[facility] LABORATORYCLIA [id number] [address] Nucleated RBC (Bld) [#/Vol] 10*3/uL Normal <0.01 [facility] Comment on above: Order Comment: Speci men Type: BLOOD SPECIMENOrdering Facility: [facility] Address: [address] [place] [address] Performed By: #### 5 7021-8 ####[facility] LABORATORYCLIA [id number] [address] [place] Nucleated RBC/100 WBC (Bld) [Ratio] 0.0 /100 WBC Normal [facility] Comment on above: Order Comment: Speci men Type: BLOOD SPECIMENOrdering Facility: [facility] Address: [address] [place] [address] Performed By: #### 5 7021-8 ####[facility] LABORATORYCLIA [id number] [address] [place] Platelet mean volume (Bld) [Entitic vol] 9.8 fL Normal 9.0-12.7 [facility] Comment on above: Order Comment: Speci men Type: BLOOD SPECIMENOrdering Facility: [facility] Address: [address] [place], [place] [address] Performed By: #### 5 7021-8 ####[facility] LABORATORYCLIA [id number] [place] [address] [place] Platelets (Bld) [#/Vol] 175 10*3/uL Normal 150-400 [facility] Comment on above: Order Comment: Speci men Type: BLOOD SPECIMENOrdering Facility: [facility] Address: [address] [place], [place] [address] Performed By: #### 5 7021-8 ####[facility] LABORATORYCLIA [id number] [address] STATES OF [facility] RBC (Bld) [#/Vol] 3.20 10*6/uL Low 4.20-6.00 [facility] Comment on above: Order Comment: Speci men Type: BLOOD SPECIMENOrdering Facility: [facility] Address: [address] [place] [address] Performed By: #### 5 7021-8 ####[facility] LABORATORYCLIA [id number] [address] WBC (Bld) [#/Vol] 10.60 10*3/uL Normal 3.70-11.00 [facility] Comment on above: Order Comment: Speci men Type: BLOOD SPECIMENOrdering Facility: [facility] Address: [address] [place] [address] Performed By: #### 5 7021-8 ####[facility] LABORATORYCLIA [id number] [address] BRAIN WO IVCONon 08-09-19 CT BRAIN WO IVCON Normal [facility] NURSING PROGon 08-08-2021 NURSING PROG Normal [facility] Prealbumin [Mass/Vol]on Prealbumin Nephelometry [Mass/Vol] 29 mg/dL Normal 17-36 [facility] Comment on above: Order Comment: Speci men Type: BLOOD SPECIMENOrdering Facility: [facility] Address: [address] [place] [address] Performed By: #### 1 4338-8 ####[facility] LABORATORYCLIA [id number] [address] [place] SARS-CoV-2 RNA Resp Ql MEGAN+p robeon 08-08-2021 SARS-CoV-2 (COVID-19) RNA MEGAN+probe Ql (Resp) COVID 19 RESULT: SARS-CoV-2 (Agent of COVID-19) Not Detected by RT-PCR or equivalent method. This test has been authorized by FDA under an Emergency Use Authorization (EUA). Normal [facility] Comment on above: Performed By: #### 9 4500-6 ####[facility] LABORATORYCLIA [id number] [place] [address] [place] ALLIED HEALTHon 08-07-2021 ALLIED HEALTH Normal [facility] Basic metabolic 2000 panelon 08-07-2021 Anion gap [Moles/Vol] 9 mmol/L Normal 9-18 [facility] Comment on above: Order Comment: Speci men Type: BLOOD SPECIMENOrdering Facility: [facility] Address: [address] [place] [address] Performed By: #### 2 4321-2, 2776-, , HFP ####[facility] LABORATORYCLIA [id number] [place] [address] [place] Calcium [Mass/Vol] 9.4 mg/dL Normal 8.5-10.2 [facility] Comment on above: Order Comment: Speci men Type: BLOOD SPECIMENOrdering Facility: [facility] Address: [address] [place] [address] Performed By: #### 2 4321-2, 2776-, , HFP ####[facility] LABORATORYCLIA [id number] [place] [address] [place] Chloride [Moles/Vol] 98 mmol/L Normal 97-105 [facility] Comment on above: Order Comment: Speci men Type: BLOOD SPECIMENOrdering Facility: [facility] Address: [address] [address] Performed By: #### 2 4321-2, 2776-, , HFP ####[facility] LABORATORYCLIA [id number] [place] [address] [place] CO2 [Moles/Vol] 29 mmol/L Normal 22-30 [facility] Comment on above: Order Comment: Speci men Type: BLOOD SPECIMENOrdering Facility: [facility] Address: [address] [place] [address] Performed By: #### 2 4321-2, 2776-05, , [facility] ####[facility] HOSPITALIA [id number] [place] [address] [place] Creatinine [Mass/Vol] 0.67 mg/dL Low 0.73-1.22 [facility] Comment on above: Order Comment: Shira feldman Type: BLOOD SPECIMENOrdering Facility: [facility] Address: [address] [place], [place] [phone] Performed By: #### 2 4321-2, 2776-05, , [facility] ####[facility] HOSPITALIA [id number] [place] [address] [facility] [place] ESTIMATED GLOMERULAR FILTRATION RATE 101 mL/min/1.73m??? Normal >=60 [facility] Comment on above: Order Comment: Shira feldman Type: BLOOD SPECIMENOrdering Facility: [facility] Address: [address] [place], [place] [phone] Result Comment: Luzmaria mated Glomerular Filtration Rate [...] Performed By: #### 2 4321-2, 2776-05, , [facility] ####[facility] HOSPITALIA [id number] [place] [address] [place] Glucose [Mass/Vol] 117 mg/dL High 74-99 [facility] Comment on above: Order Comment: Speccara men Type: BLOOD SPECIMENOrdering Facility: [facility] Address: [address] [phone] Result Comment: The [place] [employer] (ADA) provides guidance for cutoff [...] Standards of Medical Care in Diabetes 2016, [place] [employer]. Diabetes Care. 2016.39(Suppl 1). Performed By: #### 2 4321-2, 2776-, , [facility] ####[facility] LABORATORYCLIA [id number] [place] [address] [place] Potassium [Moles/Vol] 4.1 mmol/L Normal 3.7-5.1 [facility] Comment on above: Order Comment: Shira feldman Type: BLOOD SPECIMENOrdering Facility: [facility] Address: [address] [place] [address] Performed By: #### 2 4321-2, 2776-, , [facility] ####[facility] [id number] [address] STATES OF [facility] Sodium [Moles/Vol] 136 mmol/L Normal 136-144 [facility] Comment on above: Order Comment: Shira feldman Type: BLOOD SPECIMENOrdering Facility: [facility] Address: [address] [place] [address] Performed By: #### 2 4321-2, 2776-05, , [facility] ####[facility]ORATORYCLIA [id number] [place] [address] [place] Urea nitrogen [Mass/Vol] 31 mg/dL High 9-24 [facility] Comment on above: Order Comment: Shira feldman Type: BLOOD SPECIMENOrdering Facility: [facility] Address: [address] [place] [address] Performed By: #### 2 4321-2, 2776-05, , [facility] ####[facility]ORYCLIA [id number] [place] [address] [place] CBC W Auto Differential pane l (Bld)on 08-07-2021 Basophils (Bld) [#/Vol] 0.03 10*3/uL Normal <0.11 [facility] Comment on above: Order Comment: Speci men Type: BLOOD SPECIMENOrdering Facility: [facility] Address: [address] [place] [address] Performed By: #### 5 7021-8 ####[facility]ORATORYCLIA [id number] [address] [place] Basophils/100 WBC (Bld) 0.3 % Normal [facility] Comment on above: Order Comment: Speci men Type: BLOOD SPECIMENOrdering Facility: [facility] Address: [address] [place] [address] Performed By: #### 5 7021-8 ####[facility]ORATORYCLIA [id number] [address] [place] Differential cell count method Nom (Bld) Auto Normal [facility] Comment on above: Order Comment: Speci men Type: BLOOD SPECIMENOrdering Facility: [facility] Address: [address] [place] [address] Performed By: #### 5 7021-8 ####[facility]ORATORYCLIA [id number] [place] [address] [place] Eosinophils (Bld) [#/Vol] 0.16 10*3/uL Normal <0.46 [facility] Comment on above: Order Comment: Speci men Type: BLOOD SPECIMENOrdering Facility: [facility] Address: [address] [place] [address] Performed By: #### 5 7021-8 ####[facility]ATORYCLIA [id number] [address] [place] Eosinophils/100 WBC (Bld) 1.6 % Normal [facility] Comment on above: Order Comment: Speci men Type: BLOOD SPECIMENOrdering Facility: [facility] Address: [address] [place] [address] Performed By: #### 5 7021-8 ####[facility]ORATORYCLIA [id number] [address] Erythrocyte distribution width (RBC) [Ratio] 18.1 % High 11.5-15.0 [facility] Comment on above: Order Comment: Speci men Type: BLOOD SPECIMENOrdering Facility: [facility] Address: [address] [place] [address] Performed By: #### 5 7021-8 ####[facility]ATORYCLIA [id number] [address] Hematocrit (Bld) [Volume fraction] 30.6 % Low 39.0-51.0 [facility] Comment on above: Order Comment: Speci men Type: BLOOD SPECIMENOrdering Facility: [facility] Address: [address] [place] [address] Performed By: #### 5 7021-8 ####[facility]ATORYCLIA [id number] [address] Hemoglobin (Bld) [Mass/Vol] 9.4 g/dL Low 13.0-17.0 [facility] Comment on above: Order Comment: Speci men Type: BLOOD SPECIMENOrdering Facility: [facility] Address: [address] [place] [address] Performed By: #### 5 7021-8 ####[facility]ATORYCLIA [id number] [address] IMMATURE GRAN % 0.4 % Normal [facility] Comment on above: Order Comment: Speci men Type: BLOOD SPECIMENOrdering Facility: [facility] Address: [address] [place] [address] Performed By: #### 5 7021-8 ####[facility]ATORYCLIA [id number] [address] IMMATURE GRAN ABS 0.04 k/uL Normal <0.10 [facility] Comment on above: Order Comment: Speci men Type: BLOOD SPECIMENOrdering Facility: [facility] Address: [address] [place] [address] Performed By: #### 5 7021-8 ####[facility]ATORYCLIA [id number] [address] Lymphocytes (Bld) [#/Vol] 2.05 10*3/uL Normal 1.00-4.00 [facility] Comment on above: Order Comment: Speci men Type: BLOOD SPECIMENOrdering Facility: [facility] Address: [address] [place] [address] Performed By: #### 5 7021-8 ####[facility]ATORYCLIA [id number] [address] Lymphocytes/100 WBC (Bld) 20.2 % Normal [facility] Comment on above: Order Comment: Speci men Type: BLOOD SPECIMENOrdering Facility: [facility] Address: [address] [place] [address] Performed By: #### 5 7021-8 ####[facility]ATORYCLIA [id number] [address] MCH (RBC) [Entitic mass] 28.8 pg Normal 26.0-34.0 [facility] Comment on above: Order Comment: Speci men Type: BLOOD SPECIMENOrdering Facility: [facility] Address: [address] [place] [address] Performed By: #### 5 7021-8 ####[facility]ATORYCLIA [id number] [address] MCHC (RBC) [Mass/Vol] 30.7 g/dL Normal 30.5-36.0 [facility] Comment on above: Order Comment: Speci men Type: BLOOD SPECIMENOrdering Facility: [facility] Address: [address] [place] [address] Performed By: #### 5 7021-8 ####[facility]ATORYCLIA [id number] [address] MCV (RBC) [Entitic vol] 93.9 fL Normal 80.0-100.0 [facility] Comment on above: Order Comment: Speci men Type: BLOOD SPECIMENOrdering Facility: [facility] Address: [address] [address] Performed By: #### 5 7021-8 ####[facility]ATORYCLIA [id number] [address] [place] Monocytes (Bld) [#/Vol] 0.64 10*3/uL Normal <0.87 [facility] Comment on above: Order Comment: Speci men Type: BLOOD SPECIMENOrdering Facility: [facility] Address: [address] [place] [address] Performed By: #### 5 7021-8 ####[facility] LABORATORYCLIA [id number] [address] Monocytes/100 WBC (Bld) 6.3 % Normal [facility] Comment on above: Order Comment: Speci men Type: BLOOD SPECIMENOrdering Facility: [facility] Address: [address] [place] [address] Performed By: #### 5 7021-8 ####[facility]ORATORYCLIA [id number] [address] [place] Neutrophils (Bld) [#/Vol] 7.22 10*3/uL Normal 1.45-7.50 [facility] Comment on above: Order Comment: Speci men Type: BLOOD SPECIMENOrdering Facility: [facility] Address: [address] [place] [address] Performed By: #### 5 7021-8 ####[facility]ORATORYCLIA [id number] [address] [place] Neutrophils/100 WBC (Bld) 71.2 % Normal [facility] Comment on above: Order Comment: Speci men Type: BLOOD SPECIMENOrdering Facility: [facility] Address: [address] [place] [address] Performed By: #### 5 7021-8 ####[facility] LABORATORYCLIA [id number] [place] [address] [place] Nucleated RBC (Bld) [#/Vol] 10*3/uL Normal <0.01 [facility] Comment on above: Order Comment: Speci men Type: BLOOD SPECIMENOrdering Facility: [facility] Address: [address] [place] [address] Performed By: #### 5 7021-8 ####[facility]ATORYCLIA [id number] [address] [place] Nucleated RBC/100 WBC (Bld) [Ratio] 0.0 /100 WBC Normal [facility] Comment on above: Order Comment: Speci men Type: BLOOD SPECIMENOrdering Facility: [facility] Address: [address] [place] [address] Performed By: #### 5 7021-8 ####[facility]ATORYCLIA [id number] [address] [place] Platelet mean volume (Bld) [Entitic vol] 9.9 fL Normal 9.0-12.7 [facility] Comment on above: Order Comment: Speci men Type: BLOOD SPECIMENOrdering Facility: [facility] Address: [address] [place] [address] Performed By: #### 5 7021-8 ####[facility]ATORYCLIA [id number] [address] [place] Platelets (Bld) [#/Vol] 227 10*3/uL Normal 150-400 [facility] Comment on above: Order Comment: Speci men Type: BLOOD SPECIMENOrdering Facility: [facility] Address: [address] Performed By: #### 5 7021-8 ####[facility]ORATORYCLIA [id number] [place] [address] [place] RBC (Bld) [#/Vol] 3.26 10*6/uL Low 4.20-6.00 [facility] Comment on above: Order Comment: Speci men Type: BLOOD SPECIMENOrdering Facility: [facility] Address: [address] [place] [address] Performed By: #### 5 7021-8 ####[facility]ATORYCLIA [id number] [address] WBC (Bld) [#/Vol] 10.14 10*3/uL Normal 3.70-11.00 [facility] Comment on above: Order Comment: Speci men Type: BLOOD SPECIMENOrdering Facility: [facility] Address: [address] [place] [address] Performed By: #### 5 7021-8 ####[facility]ATORYCLIA [id number] [address] [place] BRAIN WO IVCONon 08-08-19 CT BRAIN WO IVCON Normal [facility] HEPATIC FUNCTION PNLon 08-07 Albumin [Mass/Vol] 3.6 g/dL Low 3.9-4.9 [facility] Comment on above: Order Comment: Speci men Type: BLOOD SPECIMENOrdering Facility: [facility] Address: [address] [place] [address] Performed By: #### 2 4321-2, 2777-1, , HFP ####[facility]ATORYCLIA [id number] [address] STATES [facility] ALP [Catalytic activity/Vol] 124 U/L High 38-113 [facility] Comment on above: Order Comment: Speci men Type: BLOOD SPECIMENOrdering Facility: [facility] Address: [address] [place], [place] [address] Performed By: #### 2 4321-2, 2777-1, , HFP ####[facility]ATORYCLIA [id number] [address] ALT With P-5'-P [Catalytic activity/Vol] 29 U/L Normal 10-54 [facility] Comment on above: Order Comment: Speci men Type: BLOOD SPECIMENOrdering Facility: [facility] Address: [address] [place] [address] Performed By: #### 2 4321-2, 2776-05, , HFP ####[facility]ORATORYCLIA [id number] [address] OF [facility] AST With P-5'-P [Catalytic activity/Vol] 18 U/L Normal 14-40 [facility] Comment on above: Order Comment: Speci men Type: BLOOD SPECIMENOrdering Facility: [facility] Address: [address] [place] [address] Performed By: #### 2 4321-2, 2776-05, , HFP ####[facility]ATORYCLIA [id number] [address] STATES OF [facility] Bilirubin [Mass/Vol] 0.3 mg/dL Normal 0.2-1.3 [facility] Comment on above: Order Comment: Speci men Type: BLOOD SPECIMENOrdering Facility: [facility] Address: [address] [place] [address] Performed By: #### 2 4321-2, 2776-05, , HFP ####[facility]ATORYCLIA [id number] [address] OF [facility] Bilirubin.conjugated [Mass/Vol] mg/dL Normal <0.2 [facility] Comment on above: Order Comment: Speci men Type: BLOOD SPECIMENOrdering Facility: [facility] Address: [address] [place] [address] Performed By: #### 2 4321-2, 2776-05, , HFP ####[facility]ATORYCLIA [id number] [address] [place] Protein [Mass/Vol] 6.4 g/dL Normal 6.3-8.0 [facility] Comment on above: Order Comment: Speci men Type: BLOOD SPECIMENOrdering Facility: [facility] Address: [address] [place] [address] Performed By: #### 2 4321-2, 2776-05, , HFP ####[facility]ORATORYCLIA [id number] [place] [address] [place] Magnesium SerPl-mCncon 08-07 Magnesium [Mass/Vol] 2.3 mg/dL Normal 1.7-2.3 [facility] Comment on above: Order Comment: Speci men Type: BLOOD SPECIMENOrdering Facility: [facility] Address: [address] [place] [address] Performed By: #### 2 4321-2, 277-, , HFP ####[facility]ATORYCLIA [id number] [address] [place] NURSING PROGon 08-07-2021 NURSING PROG Normal [facility] Phosphate SerPl-ncon 08-07 Phosphate [Mass/Vol] 3.5 mg/dL Normal 2.7-4.8 [facility] Comment on above: Order Comment: Speci men Type: BLOOD SPECIMENOrdering Facility: [facility] Address: [address] [place] [address] Performed By: #### 2 4321-2, 2776-05, , HFP ####[facility]ATORYCLIA [id number] [address] [place] ANES POSTPROC EVALon 022 ANES POSTPROC EVAL Normal [facility] Basic metabolic 2000 panelon 08-06-2021 Anion gap [Moles/Vol] 11 mmol/L Normal 9-18 [facility] Comment on above: Order Comment: Speci men Type: BLOOD SPECIMENOrdering Facility: [facility] Address: [address] [place] [address] Performed By: #### 2 4321-2, 27711-04, ####[facility]ATORYCLIA [id number] [place] [address] [place] Calcium [Mass/Vol] 8.2 mg/dL Low 8.5-10.2 [facility] Comment on above: Order Comment: Speci men Type: BLOOD SPECIMENOrdering Facility: [facility] Address: [address] [place], [place] [address] Performed By: #### 2 4321-2, 2776-05, ####[facility]ATORYCLIA [id number] [place] [address] [place] Chloride [Moles/Vol] 100 mmol/L Normal 97-105 [facility] Comment on above: Order Comment: Speci men Type: BLOOD SPECIMENOrdering Facility: [facility] Address: [address] [place] [address] Performed By: #### 2 4321-2, 2776-05, ####[facility]ATORYCLIA [id number] [address] STATES OF [facility] CO2 [Moles/Vol] 23 mmol/L Normal 22-30 [facility] Comment on above: Order Comment: Speci men Type: BLOOD SPECIMENOrdering Facility: [facility] Address: [address] [place] [address] Performed By: #### 2 4321-2, 2776-05, ####[facility]ATORYCLIA [id number] [address] [place] Creatinine [Mass/Vol] 0.55 mg/dL Low 0.73-1.22 [facility] Comment on above: Order Comment: Speci men Type: BLOOD SPECIMENOrdering Facility: [facility] Address: [address] [place] [address] Performed By: #### 2 4321-2, 2776-05, ####[facility]ATORYCLIA [id number] [address] OF [facility] ESTIMATED GLOMERULAR FILTRATION RATE 107 mL/min/1.73m??? Normal >=60 [facility] Comment on above: Order Comment: Speci men Type: BLOOD SPECIMENOrdering Facility: [facility] Address: [address] [place] [address] Result Comment: Luzmaria mated Glomerular Filtration Rate [...] GFR. Performed By: #### 2 4321-2, 2777-, ####[facility]ATORYCLIA [id number] [place] [address] [place] Glucose [Mass/Vol] 275 mg/dL High 74-99 [facility] Comment on above: Order Comment: Shira feldman Type: BLOOD SPECIMENOrdering Facility: [facility] Address: [address] [place], [place] [address] Result Comment: The [place] [employer] (ADA) provides guidance for cutoff [...] Standards of Medical Care in Diabetes 2016, [place] [employer]. Diabetes Care. 2016.39(Suppl 1). Performed By: #### 2 4321-2, 2776-05, ####[facility]ATORYCLIA [id number] [place] [address] [place] Potassium [Moles/Vol] 3.6 mmol/L Low 3.7-5.1 [facility] Comment on above: Order Comment: Shira feldman Type: BLOOD SPECIMENOrdering Facility: [facility] Address: [address] [place] [address] Performed By: #### 2 4321-2, 277-, ####[facility]ATORYCLIA [id number] [place] [address] [place] Sodium [Moles/Vol] 134 mmol/L Low 136-144 [facility] Comment on above: Order Comment: Speci men Type: BLOOD SPECIMENOrdering Facility: [facility] Address: [address] [place] [address] Performed By: #### 2 4321-2, 2777-1, 81128-7 ####[facility]ATORYCLIA [id number] [place] [address] [place] Urea nitrogen [Mass/Vol] 29 mg/dL High 9-24 [facility] Comment on above: Order Comment: Speci men Type: BLOOD SPECIMENOrdering Facility: [facility] Address: [address] [place] [address] Performed By: #### 2 4321-2, 2777-1, ####[facility]ATORYCLIA [id number] [address] STATES OF [facility] CBC W Auto Differential pane l (Bld)on 08-06-2021 Basophils (Bld) [#/Vol] 0.03 10*3/uL Normal <0.11 [facility] Comment on above: Order Comment: Speci men Type: BLOOD SPECIMENOrdering Facility: [facility] Address: [address] [place] [address] Performed By: #### 5 7021-8 ####[facility]ATORYCLIA [id number] [address] [place] Basophils/100 WBC (Bld) 0.3 % Normal [facility] Comment on above: Order Comment: Speci men Type: BLOOD SPECIMENOrdering Facility: [facility] Address: [address] [place] [address] Performed By: #### 5 7021-8 ####[facility]ATORYCLIA [id number] [address] STATES [facility] Differential cell count method Nom (Bld) Auto Normal [facility] Comment on above: Order Comment: Speci men Type: BLOOD SPECIMENOrdering Facility: [facility] Address: [address] [address] Performed By: #### 5 7021-8 ####[facility]ORATORYCLIA [id number] [address] [place] Eosinophils (Bld) [#/Vol] 0.18 10*3/uL Normal <0.46 [facility] Comment on above: Order Comment: Speci men Type: BLOOD SPECIMENOrdering Facility: [facility] Address: [address] [address] Performed By: #### 5 7021-8 ####[facility]ATORYCLIA [id number] [address] Eosinophils/100 WBC (Bld) 1.6 % Normal [facility] Comment on above: Order Comment: Speci men Type: BLOOD SPECIMENOrdering Facility: [facility] Address: [address] [place] [address] Performed By: #### 5 7021-8 ####[facility]ATORYCLIA [id number] [address] Erythrocyte distribution width (RBC) [Ratio] 17.9 % High 11.5-15.0 [facility] Comment on above: Order Comment: Speci men Type: BLOOD SPECIMENOrdering Facility: [facility] Address: [address] [place] [address] Performed By: #### 5 7021-8 ####[facility]ORATORYCLIA [id number] [address] [place] Hematocrit (Bld) [Volume fraction] 27.6 % Low 39.0-51.0 [facility] Comment on above: Order Comment: Speci men Type: BLOOD SPECIMENOrdering Facility: [facility] Address: [facility] [place] [address] Performed By: #### 5 7021-8 ####[facility]ATORYCLIA [id number] [address] [place] Hemoglobin (Bld) [Mass/Vol] 8.5 g/dL Low 13.0-17.0 [facility] Comment on above: Order Comment: Speci men Type: BLOOD SPECIMENOrdering Facility: [facility] Address: [address] [place] [address] Performed By: #### 5 7021-8 ####[facility]ORATORYCLIA [id number] [address] IMMATURE GRAN % 0.6 % Normal [facility] Comment on above: Order Comment: Speci men Type: BLOOD SPECIMENOrdering Facility: [facility] Address: [address] [place] [address] Performed By: #### 5 7021-8 ####[facility]ATORYCLIA [id number] [address] IMMATURE GRAN ABS 0.07 k/uL Normal <0.10 [facility] Comment on above: Order Comment: Speci men Type: BLOOD SPECIMENOrdering Facility: [facility] Address: [address] [place] [address] Performed By: #### 5 7021-8 ####[facility]ORATORYCLIA [id number] [address] Lymphocytes (Bld) [#/Vol] 1.81 10*3/uL Normal 1.00-4.00 [facility] Comment on above: Order Comment: Speci men Type: BLOOD SPECIMENOrdering Facility: [facility] Address: [address] [place] [address] Performed By: #### 5 7021-8 ####[facility]ORATORYCLIA [id number] [address] Lymphocytes/100 WBC (Bld) 15.7 % Normal [facility] Comment on above: Order Comment: Speci men Type: BLOOD SPECIMENOrdering Facility: [facility] Address: [address] [place] [address] Performed By: #### 5 7021-8 ####[facility]ORATORYCLIA [id number] [place] [address] [place] MCH (RBC) [Entitic mass] 28.6 pg Normal 26.0-34.0 [facility] Comment on above: Order Comment: Speci men Type: BLOOD SPECIMENOrdering Facility: [facility] Address: [address] [place] [address] Performed By: #### 5 7021-8 ####[facility]ORATORYCLIA [id number] [address] [place] MCHC (RBC) [Mass/Vol] 30.8 g/dL Normal 30.5-36.0 [facility] Comment on above: Order Comment: Speci men Type: BLOOD SPECIMENOrdering Facility: [facility] Address: [address] [place] [address] Performed By: #### 5 7021-8 ####[facility]ORATORYCLIA [id number] [address] OF [facility] MCV (RBC) [Entitic vol] 92.9 fL Normal 80.0-100.0 [facility] Comment on above: Order Comment: Speci men Type: BLOOD SPECIMENOrdering Facility: [facility] Address: [address] [place] [address] Performed By: #### 5 7021-8 ####[facility]ORATORYCLIA [id number] [address] Monocytes (Bld) [#/Vol] 0.63 10*3/uL Normal <0.87 [facility] Comment on above: Order Comment: Speci men Type: BLOOD SPECIMENOrdering Facility: [facility] Address: [address] [place] [address] Performed By: #### 5 7021-8 ####[facility]ORATORYCLIA [id number] [address] Monocytes/100 WBC (Bld) 5.5 % Normal [facility] Comment on above: Order Comment: Speci men Type: BLOOD SPECIMENOrdering Facility: [facility] Address: [address] [place] [address] Performed By: #### 5 7021-8 ####[facility]ORATORYCLIA [id number] [address] [place] Neutrophils (Bld) [#/Vol] 8.78 10*3/uL High 1.45-7.50 [facility] Comment on above: Order Comment: Speci men Type: BLOOD SPECIMENOrdering Facility: [facility] Address: [address] [place] [address] Performed By: #### 5 7021-8 ####[facility]ATORYCLIA [id number] [address] Neutrophils/100 WBC (Bld) 76.3 % Normal [facility] Comment on above: Order Comment: Speci men Type: BLOOD SPECIMENOrdering Facility: [facility] Address: [address] [place] [address] Performed By: #### 5 7021-8 ####[facility]ORATORYCLIA [id number] [address] Nucleated RBC (Bld) [#/Vol] 10*3/uL Normal <0.01 [facility] Comment on above: Order Comment: Speci men Type: BLOOD SPECIMENOrdering Facility: [facility] Address: [address] [place] [address] Performed By: #### 5 7021-8 ####[facility]ATORYCLIA [id number] [address] Nucleated RBC/100 WBC (Bld) [Ratio] 0.0 /100 WBC Normal [facility] Comment on above: Order Comment: Speci men Type: BLOOD SPECIMENOrdering Facility: [facility] Address: [address] [place] [address] Performed By: #### 5 7021-8 ####[facility]ATORYCLIA [id number] [address] Platelet mean volume (Bld) [Entitic vol] 9.9 fL Normal 9.0-12.7 [facility] Comment on above: Order Comment: Speci men Type: BLOOD SPECIMENOrdering Facility: [facility] Address: [address] [place] [address] Performed By: #### 5 7021-8 ####[facility]ORATORYCLIA [id number] [address] OF [facility] Platelets (Bld) [#/Vol] 230 10*3/uL Normal 150-400 [facility] Comment on above: Order Comment: Speci men Type: BLOOD SPECIMENOrdering Facility: [facility] Address: [address] [place] [address] Performed By: #### 5 7021-8 ####[facility] LABORATORYCLIA [id number] [place] [address] [place] RBC (Bld) [#/Vol] 2.97 10*6/uL Low 4.20-6.00 [facility] Comment on above: Order Comment: Speci men Type: BLOOD SPECIMENOrdering Facility: [facility] Address: [address] [place] [address] Performed By: #### 5 7021-8 ####[facility]ORATORYCLIA [id number] [address] OF [place] WBC (Bld) [#/Vol] 11.50 10*3/uL High 3.70-11.00 [facility] Comment on above: Order Comment: Speci men Type: BLOOD SPECIMENOrdering Facility: [facility] Address: [address] [place] [address] Performed By: #### 5 7021-8 ####[facility]ORATORYCLIA [id number] [address] OF [place] CONSULT PROGon 08-06-2021 CONSULT PROG Normal [facility] Magnesium SerPl-mCncon 08-06 Magnesium [Mass/Vol] 1.9 mg/dL Normal 1.7-2.3 [facility] Comment on above: Order Comment: Speci men Type: BLOOD SPECIMENOrdering Facility: [facility] Address: [address] [place] [address] Performed By: #### 2 4321-2, 2777-1, ####[facility]ATORYCLIA [id number] [place] [phone] [place] NURSING PROGon 08-06-2021 NURSING PROG Normal [facility] OPERATIVE NOon 08-06-2021 OPERATIVE NO Normal [facility] Phosphate SerPl-mCncon 08-06 Phosphate [Mass/Vol] 4.2 mg/dL Normal 2.7-4.8 [facility] Comment on above: Order Comment: Speci men Type: BLOOD SPECIMENOrdering Facility: [facility] Address: [address] [place] [address] Performed By: #### 2 4321-2, 2777-1, ####[facility]ATORYCLIA [id number] [address] ALLIED HEALTHon 08-05-2021 ALLIED HEALTH Normal [facility] ALLIED HEALTH Normal [facility] ANES PRE-OPon 08-05-2021 ANES PRE-OP Normal [facility] BRIEF OP NOTon 08-05-2021 BRIEF OP NOT Normal [facility] Bacteria Spec Resp Culton Bacteria identified Respiratory culture Nom (Unsp spec) CULTURE, RESPIRATORY: Few Normal respiratory chrsi present ORGANISM ID: 1 Few Proteus species Insignificant colony count. No further workup. GRAM STAIN: No organisms seen Few Polymorphonuclear leukocytes Few Epithelial cells Abnormal [facility] Comment on above: Performed By: #### 3 2355-0 ####[facility]ATORYCLIA [id number] [address] [place] Bacteria Ur Culton Bacteria identified Cx Nom (U) CULTURE, URINE: No growth (<1,000 CFU/ml) Normal [facility] Comment on above: Performed By: #### 6 30-4 ####[facility]ATORYCLIA [id number] [place] [phone] [place] Basic metabolic 2000 panelon 08-05-2021 Anion gap [Moles/Vol] 7 mmol/L Low 9-18 [facility] Comment on above: Order Comment: Speci men Type: BLOOD SPECIMENOrdering Facility: [facility] Address: [address] [address] Performed By: #### 2 4321-2 ####[facility]ORATORYCLIA [id number] [place] [address] [place] Calcium [Mass/Vol] 9.5 mg/dL Normal 8.5-10.2 [facility] Comment on above: Order Comment: Speci men Type: BLOOD SPECIMENOrdering Facility: [facility] Address: [address] [place] [address] Performed By: #### 2 4321-2 ####[facility]ATORYCLIA [id number] [place] [address] [place] Chloride [Moles/Vol] 97 mmol/L Normal 97-105 [facility] Comment on above: Order Comment: Speci men Type: BLOOD SPECIMENOrdering Facility: [facility] Address: [address] [place] [address] Performed By: #### 2 4321-2 ####[facility]ORATORYCLIA [id number] [place] [address] [place] CO2 [Moles/Vol] 30 mmol/L Normal 22-30 [facility] Comment on above: Order Comment: Speci men Type: BLOOD SPECIMENOrdering Facility: [facility] Address: [address] [place] [address] Performed By: #### 2 4321-2 ####[facility]ATORYCLIA [id number] [place] [address] [place] Creatinine [Mass/Vol] 0.61 mg/dL Low 0.73-1.22 [facility] Comment on above: Order Comment: Speci men Type: BLOOD SPECIMENOrdering Facility: [facility] Address: [address] [place] [address] Performed By: #### 2 4321-2 ####[facility]ATORYCLIA [id number] [place] [address] [place] ESTIMATED GLOMERULAR FILTRATION RATE 104 mL/min/1.73m??? Normal >=60 [facility] Comment on above: Order Comment: Shira feldman Type: BLOOD SPECIMENOrdering Facility: [facility] Address: [address] [place] [address] Result Comment: Luzmaria mated Glomerular Filtration Rate [...] actual GFR. Performed By: #### 2 4321-2 ####[facility]ORATORYIA [id number] [place] [address] [place] Glucose [Mass/Vol] 124 mg/dL High 74-99 [facility] Comment on above: Order Comment: Shira feldman Type: BLOOD SPECIMENOrdering Facility: [facility] Address: [address] [place] [address] Result Comment: The [place] Diabetes [employer] (ADA) provides guidance for cutoff [...] Standards of Medical Care in Diabetes 2016, [place] [employer]. Diabetes Care. 2016.39(Suppl 1). Performed By: #### 2 4321-2 ####[facility]ORATORYIA [id number] [place] [address] [place] Potassium [Moles/Vol] 4.9 mmol/L Normal 3.7-5.1 [facility] Comment on above: Order Comment: Speci men Type: BLOOD SPECIMENOrdering Facility: [facility] Address: [address] [place] [address] Performed By: #### 2 4321-2 ####[facility]ATORYCLIA [id number] [place] [address] [place] Sodium [Moles/Vol] 134 mmol/L Low 136-144 [facility] Comment on above: Order Comment: Speci men Type: BLOOD SPECIMENOrdering Facility: [facility] Address: [address] [place] [address] Performed By: #### 2 4321-2 ####[facility]ORATORYCLIA [id number] [place] [address] [place] Urea nitrogen [Mass/Vol] 40 mg/dL High 9-24 [facility] Comment on above: Order Comment: Speci men Type: BLOOD SPECIMENOrdering Facility: [facility] Address: [address] [place] [address] Performed By: #### 2 4321-2 ####[facility]ORATORYCLIA [id number] [place] [address] [place] CBC W Auto Differential pane l (Bld)on 08-05-2021 Basophils (Bld) [#/Vol] 0.04 10*3/uL Normal <0.11 [facility] Comment on above: Order Comment: Speci men Type: BLOOD SPECIMENOrdering Facility: [facility] Address: [address] [place] [address] Performed By: #### 5 7021-8 ####[facility]ATORYCLIA [id number] [address] [place] Basophils/100 WBC (Bld) 0.3 % Normal [facility] Comment on above: Order Comment: Speci men Type: BLOOD SPECIMENOrdering Facility: [facility] Address: [address] [place] [address] Performed By: #### 5 7021-8 ####[facility]ORATORYCLIA [id number] [address] Differential cell count method Nom (Bld) Auto Normal [facility] Comment on above: Order Comment: Speci men Type: BLOOD SPECIMENOrdering Facility: [facility] Address: [address] [place] [address] Performed By: #### 5 7021-8 ####[facility]ORATORYCLIA [id number] [address] [place] Eosinophils (Bld) [#/Vol] 0.42 10*3/uL Normal <0.46 [facility] Comment on above: Order Comment: Speci men Type: BLOOD SPECIMENOrdering Facility: [facility] Address: [address] [place] [address] Performed By: #### 5 7021-8 ####[facility]ATORYCLIA [id number] [address] Eosinophils/100 WBC (Bld) 3.6 % Normal [facility] Comment on above: Order Comment: Speci men Type: BLOOD SPECIMENOrdering Facility: [facility] Address: [address] [place] [address] Performed By: #### 5 7021-8 ####[facility]ATORYCLIA [id number] [address] Erythrocyte distribution width (RBC) [Ratio] 17.9 % High 11.5-15.0 [facility] Comment on above: Order Comment: Speci men Type: BLOOD SPECIMENOrdering Facility: [facility] Address: [address] [place] [address] Performed By: #### 5 7021-8 ####[facility]ATORYCLIA [id number] [address] Hematocrit (Bld) [Volume fraction] 30.8 % Low 39.0-51.0 [facility] Comment on above: Order Comment: Speci men Type: BLOOD SPECIMENOrdering Facility: [facility] Address: [address] [place] [address] Performed By: #### 5 7021-8 ####[facility]ATORYCLIA [id number] [address] [place] Hemoglobin (Bld) [Mass/Vol] 9.6 g/dL Low 13.0-17.0 [facility] Comment on above: Order Comment: Speci men Type: BLOOD SPECIMENOrdering Facility: [facility] Address: [address] [place] [address] Performed By: #### 5 7021-8 ####[facility]ORATORYCLIA [id number] [address] OF [facility] IMMATURE GRAN % 0.5 % Normal [facility] Comment on above: Order Comment: Speci men Type: BLOOD SPECIMENOrdering Facility: [facility] Address: [address] [place] [address] Performed By: #### 5 7021-8 ####[facility]ATORYCLIA [id number] [address] IMMATURE GRAN ABS 0.06 k/uL Normal <0.10 [facility] Comment on above: Order Comment: Speci men Type: BLOOD SPECIMENOrdering Facility: [facility] Address: [address] [place] [address] Performed By: #### 5 7021-8 ####[facility]ATORYCLIA [id number] [address] [place] Lymphocytes (Bld) [#/Vol] 2.17 10*3/uL Normal 1.00-4.00 [facility] Comment on above: Order Comment: Speci men Type: BLOOD SPECIMENOrdering Facility: [facility] Address: [address] [place] [address] Performed By: #### 5 7021-8 ####[facility]ATORYCLIA [id number] [address] Lymphocytes/100 WBC (Bld) 18.7 % Normal [facility] Comment on above: Order Comment: Speci men Type: BLOOD SPECIMENOrdering Facility: [facility] Address: [address] [place] [address] Performed By: #### 5 7021-8 ####[facility]ATORYCLIA [id number] [address] MCH (RBC) [Entitic mass] 28.9 pg Normal 26.0-34.0 [facility] Comment on above: Order Comment: Speci men Type: BLOOD SPECIMENOrdering Facility: [facility] Address: [address] [place] [address] Performed By: #### 5 7021-8 ####[facility]ATORYCLIA [id number] [address] MCHC (RBC) [Mass/Vol] 31.2 g/dL Normal 30.5-36.0 [facility] Comment on above: Order Comment: Speci men Type: BLOOD SPECIMENOrdering Facility: [facility] Address: [address] [place] [address] Performed By: #### 5 7021-8 ####[facility]ATORYCLIA [id number] [address] MCV (RBC) [Entitic vol] 92.8 fL Normal 80.0-100.0 [facility] Comment on above: Order Comment: Speci men Type: BLOOD SPECIMENOrdering Facility: [facility] Address: [address] [place] [address] Performed By: #### 5 7021-8 ####[facility]ATORYCLIA [id number] [address] Monocytes (Bld) [#/Vol] 0.71 10*3/uL Normal <0.87 [facility] Comment on above: Order Comment: Speci men Type: BLOOD SPECIMENOrdering Facility: [facility] Address: [address] [place] [address] Performed By: #### 5 7021-8 ####[facility]ATORYCLIA [id number] [address] Monocytes/100 WBC (Bld) 6.1 % Normal [facility] Comment on above: Order Comment: Speci men Type: BLOOD SPECIMENOrdering Facility: [facility] Address: [address] [place] [address] Performed By: #### 5 7021-8 ####[facility] LABORATORYCLIA [id number] [address] [place] Neutrophils (Bld) [#/Vol] 8.19 10*3/uL High 1.45-7.50 [facility] Comment on above: Order Comment: Speci men Type: BLOOD SPECIMENOrdering Facility: [facility] Address: [address] [place] [address] Performed By: #### 5 7021-8 ####[facility]ATORYCLIA [id number] [address] [place] Neutrophils/100 WBC (Bld) 70.8 % Normal [facility] Comment on above: Order Comment: Speci men Type: BLOOD SPECIMENOrdering Facility: [facility] Address: [address] [place] [address] Performed By: #### 5 7021-8 ####[facility]ORATORYCLIA [id number] [address] [place] Nucleated RBC (Bld) [#/Vol] 10*3/uL Normal <0.01 [facility] Comment on above: Order Comment: Speci men Type: BLOOD SPECIMENOrdering Facility: [facility] Address: [address] [place] [address] Performed By: #### 5 7021-8 ####[facility]ORATORYCLIA [id number] [address] [place] Nucleated RBC/100 WBC (Bld) [Ratio] 0.0 /100 WBC Normal [facility] Comment on above: Order Comment: Speci men Type: BLOOD SPECIMENOrdering Facility: [facility] Address: [address] [place] [address] Performed By: #### 5 7021-8 ####[facility]ORATORYCLIA [id number] [address] Platelet mean volume (Bld) [Entitic vol] 9.6 fL Normal 9.0-12.7 [facility] Comment on above: Order Comment: Speci men Type: BLOOD SPECIMENOrdering Facility: [facility] Address: [address] [place] [address] Performed By: #### 5 7021-8 ####[facility]ATORYCLIA [id number] [address] [place] Platelets (Bld) [#/Vol] 339 10*3/uL Normal 150-400 [facility] Comment on above: Order Comment: Speci men Type: BLOOD SPECIMENOrdering Facility: [facility] Address: [address] [place] [address] Performed By: #### 5 7021-8 ####[facility]ATORYCLIA [id number] [place] [address] [place] RBC (Bld) [#/Vol] 3.32 10*6/uL Low 4.20-6.00 [facility] Comment on above: Order Comment: Speci men Type: BLOOD SPECIMENOrdering Facility: [facility] Address: [address] [place] [address] Performed By: #### 5 7021-8 ####[facility]ATORYCLIA [id number] [address] [place] WBC (Bld) [#/Vol] 11.59 10*3/uL High 3.70-11.00 [facility] Comment on above: Order Comment: Speci men Type: BLOOD SPECIMENOrdering Facility: [facility] Address: [address] [place] [address] Performed By: #### 5 7021-8 ####[facility]ATORYCLIA [id number] [address] [place] CT BRAIN WO IVCONon 08-06-19 CT BRAIN WO IVCON Normal [facility] Magnesium SerPl-mCncon 08-05 Magnesium [Mass/Vol] 2.2 mg/dL Normal 1.7-2.3 [facility] Comment on above: Order Comment: Speci men Type: BLOOD SPECIMENOrdering Facility: [facility] Address: [address] [place] [address] Performed By: #### 1 9123-9, 2777-1 ####[facility]ORATORYCLIA [id number] [address] OF [facility] NURSING PROGon 08-05-2021 NURSING PROG Normal [facility] NURSING PROG Normal [facility] NUTRITIONon 08-05-2021 NUTRITION Normal [facility] OPERATIVE NOon 08-05-2021 OPERATIVE NO Normal [facility] Phosphate SerPl-mCncon 08-05 Phosphate [Mass/Vol] 4.6 mg/dL Normal 2.7-4.8 [facility] Comment on above: Order Comment: Speci men Type: BLOOD SPECIMENOrdering Facility: [facility] Address: [address] [place] [address] Performed By: #### 1 9123-9, 2776-05 ####[facility]ATORYCLIA [id number] [address] THERAPY NTon 08-05-2021 THERAPY NT Normal [facility] THERAPY NT Normal [facility] Urinalysis complete panel (U )on 08-05-2021 Bilirubin Ql (U) Negative Normal Negative [facility] Comment on above: Order Comment: Speci men Type: URINE SPECIMENOrdering Facility: [facility] Address: [address] [place] [address] Performed By: #### 2 4356-8 ####[facility]ATORYCLIA [id number] [address] [place] Clarity (Unsp spec) Clear Normal Clear [facility] Comment on above: Order Comment: Speci men Type: URINE SPECIMENOrdering Facility: [facility] Address: [address] [place] [address] Performed By: #### 2 4356-8 ####[facility]ATORYCLIA [id number] [address] Color (U) Light Yellow Normal yellow [facility] Comment on above: Order Comment: Speci men Type: URINE SPECIMENOrdering Facility: [facility] Address: [address] [place] [address] Performed By: #### 2 4356-8 ####[facility]ORATORYCLIA [id number] [address] Epithelial cells LM.HPF (Urine sed) [#/Area] Few Abnormal None Seen [facility] Comment on above: Order Comment: Speci men Type: URINE SPECIMENOrdering Facility: [facility] Address: [address] [place] [address] Performed By: #### 2 4356-8 ####[facility]ORATORYCLIA [id number] [address] Glucose Test strip (U) [Mass/Vol] Negative Normal Negative [facility] Comment on above: Order Comment: Speci men Type: URINE SPECIMENOrdering Facility: [facility] Address: [address] [place] [address] Performed By: #### 2 4356-8 ####[facility]ORATORYCLIA [id number] [address] Hemoglobin Ql (U) Negative Normal Negative [facility] Comment on above: Order Comment: Speci men Type: URINE SPECIMENOrdering Facility: [facility] Address: [address] [place] [address] Performed By: #### 2 4356-8 ####[facility]ORATORYCLIA [id number] [address] Hyaline casts (Urine sed) [#/Area] 1-3 /LPF Abnormal 0 /LPF [facility] Comment on above: Order Comment: Speci men Type: URINE SPECIMENOrdering Facility: [facility] Address: [address] [place] [address] Performed By: #### 2 4356-8 ####[facility]ORATORYCLIA [id number] [address] [place] Ketones Ql (U) Negative Normal Negative [facility] Comment on above: Order Comment: Speci men Type: URINE SPECIMENOrdering Facility: [facility] Address: [address] [place] [address] Performed By: #### 2 4356-8 ####[facility]ORATORYCLIA [id number] [address] Leukocyte esterase Test strip Ql (U) Negative Normal Negative [facility] Comment on above: Order Comment: Speci men Type: URINE SPECIMENOrdering Facility: [facility] Address: [address] [place] [address] Performed By: #### 2 4356-8 ####[facility]ORATORYCLIA [id number] [address] [place] Nitrite Ql (U) Negative Normal Negative [facility] Comment on above: Order Comment: Speci men Type: URINE SPECIMENOrdering Facility: [facility] Address: [address] [place] [address] Performed By: #### 2 4356-8 ####[facility]ATORYCLIA [id number] [address] [place] pH (U) 6.0 [pH] Normal 5.0-8.0 [facility] Comment on above: Order Comment: Speci men Type: URINE SPECIMENOrdering Facility: [facility] Address: [address] [place] [address] Performed By: #### 2 4356-8 ####[facility]ORATORYCLIA [id number] [address] [place] Protein (U) [Mass/Vol] Negative Normal Negative [facility] Comment on above: Order Comment: Speci men Type: URINE SPECIMENOrdering Facility: [facility] Address: [address] [place] [address] Performed By: #### 2 4356-8 ####[facility]ATORYCLIA [id number] [address] STATES [facility] RBC LM.HPF (Urine sed) [#/Area] 0-3 /HPF Normal 0-3 /HPF [facility] Comment on above: Order Comment: Speci men Type: URINE SPECIMENOrdering Facility: [facility] Address: [address] [place] [address] Performed By: #### 2 4356-8 ####[facility]ATORYCLIA [id number] [address] STATES OF [facility] Specific gravity (U) [Rel density] 1.015 Normal 1.005-1.030 [facility] Comment on above: Order Comment: Speci men Type: URINE SPECIMENOrdering Facility: [facility] Address: [address] [place] [address] Performed By: #### 2 4356-8 ####[facility]ATORYCLIA [id number] [address] Urobilinogen Ql (U) Normal Normal Negative [facility] Comment on above: Order Comment: Speci men Type: URINE SPECIMENOrdering Facility: [facility] Address: [address] [place] [address] Performed By: #### 2 4356-8 ####[facility]ATORYCLIA [id number] [address] WBC LM.HPF (Urine sed) [#/Area] 0-5 /HPF Normal 0-5 /HPF [facility] Comment on above: Order Comment: Speci men Type: URINE SPECIMENOrdering Facility: [facility] Address: [address] [place] [address] Performed By: #### 2 4356-8 ####[facility]ATORYCLIA [id number] [address] XR ABDOMEN 1V SUPINEon 08-05 XR ABDOMEN 1V SUPINE Normal [facility] XR CHEST 1V FRONTALon 2021 XR CHEST 1V FRONTAL Normal [facility] XR CHEST 1V FRONTAL Normal [facility] XR NECK SOFT TISSUE 2V AP/LA Ton 08-05-2021 XR NECK SOFT TISSUE 2V AP/LAT Normal [facility] XR SKULL 2V AP/LATon 022 XR SKULL 2V AP/LAT Normal [facility] ALLIED HEALTHon 08-04-2021 ALLIED HEALTH Normal [facility] Bacteria Bld Culton 08-05-19 22 Bacteria identified Cx Nom (Bld) CULTURE, BLOOD: No growth 5 days Normal [facility] Comment on above: Performed By: #### 6 00-7 ####[facility]ATORYCLIA [id number] [address] STATES OF [facility] Bacteria identified Cx Nom (Bld) CULTURE, BLOOD: No growth 5 days Normal [facility] Comment on above: Performed By: #### 6 00-7 ####[facility]ORATORYCLIA [id number] [place] [address] [place] CBC W Auto Differential pane l (Bld)on 08-04-2021 Basophils (Bld) [#/Vol] 0.05 10*3/uL Normal <0.11 [facility] Comment on above: Order Comment: Speci men Type: BLOOD SPECIMENOrdering Facility: [facility] Address: [address] [place] [address] Performed By: #### 5 7021-8 ####[facility]ORATORYCLIA [id number] [address] [place] Basophils/100 WBC (Bld) 0.4 % Normal [facility] Comment on above: Order Comment: Speci men Type: BLOOD SPECIMENOrdering Facility: [facility] Address: [address] [place] [address] Performed By: #### 5 7021-8 ####[facility]ORATORYCLIA [id number] [address] [place] Differential cell count method Nom (Bld) Auto Normal [facility] Comment on above: Order Comment: Speci men Type: BLOOD SPECIMENOrdering Facility: [facility] Address: [address] [address] Performed By: #### 5 7021-8 ####[facility]ORATORYCLIA [id number] [address] Eosinophils (Bld) [#/Vol] 0.21 10*3/uL Normal <0.46 [facility] Comment on above: Order Comment: Speci men Type: BLOOD SPECIMENOrdering Facility: [facility] Address: [address] [place] [address] Performed By: #### 5 7021-8 ####[facility]ORATORYCLIA [id number] [address] Eosinophils/100 WBC (Bld) 1.7 % Normal [facility] Comment on above: Order Comment: Speci men Type: BLOOD SPECIMENOrdering Facility: [facility] Address: [address] [place] [address] Performed By: #### 5 7021-8 ####[facility]ORATORYCLIA [id number] [address] Erythrocyte distribution width (RBC) [Ratio] 18.1 % High 11.5-15.0 [facility] Comment on above: Order Comment: Speci men Type: BLOOD SPECIMENOrdering Facility: [facility] Address: [address] [place] [address] Performed By: #### 5 7021-8 ####[facility]ORATORYCLIA [id number] [address] Hematocrit (Bld) [Volume fraction] 32.0 % Low 39.0-51.0 [facility] Comment on above: Order Comment: Speci men Type: BLOOD SPECIMENOrdering Facility: [facility] Address: [address] [place] [address] Performed By: #### 5 7021-8 ####[facility]ORATORYCLIA [id number] [address] [place] Hemoglobin (Bld) [Mass/Vol] 10.0 g/dL Low 13.0-17.0 [facility] Comment on above: Order Comment: Speci men Type: BLOOD SPECIMENOrdering Facility: [facility] Address: [address] [place] [address] Performed By: #### 5 7021-8 ####[facility]ORATORYCLIA [id number] [address] IMMATURE GRAN % 0.6 % Normal [facility] Comment on above: Order Comment: Speci men Type: BLOOD SPECIMENOrdering Facility: [facility] Address: [address] [place] [address] Performed By: #### 5 7021-8 ####[facility]ORATORYCLIA [id number] [address] IMMATURE GRAN ABS 0.08 k/uL Normal <0.10 [facility] Comment on above: Order Comment: Speci men Type: BLOOD SPECIMENOrdering Facility: [facility] Address: [address] [place] [address] Performed By: #### 5 7021-8 ####[facility]ORATORYCLIA [id number] [address] Lymphocytes (Bld) [#/Vol] 2.55 10*3/uL Normal 1.00-4.00 [facility] Comment on above: Order Comment: Speci men Type: BLOOD SPECIMENOrdering Facility: [facility] Address: [address] [place] [address] Performed By: #### 5 7021-8 ####[facility] LABORATORYCLIA [id number] [address] Lymphocytes/100 WBC (Bld) 20.5 % Normal [facility] Comment on above: Order Comment: Speci men Type: BLOOD SPECIMENOrdering Facility: [facility] Address: [address] [place] [address] Performed By: #### 5 7021-8 ####[facility]ORATORYCLIA [id number] [address] MCH (RBC) [Entitic mass] 28.9 pg Normal 26.0-34.0 [facility] Comment on above: Order Comment: Speci men Type: BLOOD SPECIMENOrdering Facility: [facility] Address: [address] [place] [address] Performed By: #### 5 7021-8 ####[facility]ORATORYCLIA [id number] [address] MCHC (RBC) [Mass/Vol] 31.3 g/dL Normal 30.5-36.0 [facility] Comment on above: Order Comment: Speci men Type: BLOOD SPECIMENOrdering Facility: [facility] Address: [address] [place] [address] Performed By: #### 5 7021-8 ####[facility]ORATORYCLIA [id number] [address] MCV (RBC) [Entitic vol] 92.5 fL Normal 80.0-100.0 [facility] Comment on above: Order Comment: Speci men Type: BLOOD SPECIMENOrdering Facility: [facility] Address: [address] [place] [address] Performed By: #### 5 7021-8 ####[facility]ORATORYCLIA [id number] [address] Monocytes (Bld) [#/Vol] 0.85 10*3/uL Normal <0.87 [facility] Comment on above: Order Comment: Speci men Type: BLOOD SPECIMENOrdering Facility: [facility] Address: [address] [place] [address] Performed By: #### 5 7021-8 ####[facility]ORATORYCLIA [id number] [address] Monocytes/100 WBC (Bld) 6.8 % Normal [facility] Comment on above: Order Comment: Speci men Type: BLOOD SPECIMENOrdering Facility: [facility] Address: [address] [place] [address] Performed By: #### 5 7021-8 ####[facility]ORATORYCLIA [id number] [address] [place] Neutrophils (Bld) [#/Vol] 8.68 10*3/uL High 1.45-7.50 [facility] Comment on above: Order Comment: Speci men Type: BLOOD SPECIMENOrdering Facility: [facility] Address: [address] [place] [address] Performed By: #### 5 7021-8 ####[facility]ORATORYCLIA [id number] [address] STATES [facility] Neutrophils/100 WBC (Bld) 70.0 % Normal [facility] Comment on above: Order Comment: Speci men Type: BLOOD SPECIMENOrdering Facility: [facility] Address: [address] [place] [address] Performed By: #### 5 7021-8 ####[facility]ATORYCLIA [id number] [address] Nucleated RBC (Bld) [#/Vol] 10*3/uL Normal <0.01 [facility] Comment on above: Order Comment: Speci men Type: BLOOD SPECIMENOrdering Facility: [facility] Address: [address] [place] [address] Performed By: #### 5 7021-8 ####[facility]ORATORYCLIA [id number] [address] Nucleated RBC/100 WBC (Bld) [Ratio] 0.0 /100 WBC Normal [facility] Comment on above: Order Comment: Speci men Type: BLOOD SPECIMENOrdering Facility: [facility] Address: [address] [place] [address] Performed By: #### 5 7021-8 ####[facility]ORATORYCLIA [id number] [address] [place] Platelet mean volume (Bld) [Entitic vol] 10.0 fL Normal 9.0-12.7 [facility] Comment on above: Order Comment: Speci men Type: BLOOD SPECIMENOrdering Facility: [facility] Address: [address] [place] [address] Performed By: #### 5 7021-8 ####[facility]ORATORYCLIA [id number] [address] OF [facility] Platelets (Bld) [#/Vol] 393 10*3/uL Normal 150-400 [facility] Comment on above: Order Comment: Speci men Type: BLOOD SPECIMENOrdering Facility: [facility] Address: [address] [place] [address] Performed By: #### 5 7021-8 ####[facility]ORATORYCLIA [id number] [address] RBC (Bld) [#/Vol] 3.46 10*6/uL Low 4.20-6.00 [facility] Comment on above: Order Comment: Speci men Type: BLOOD SPECIMENOrdering Facility: [facility] Address: [address] [place] [address] Performed By: #### 5 7021-8 ####[facility]ORATORYCLIA [id number] [address] WBC (Bld) [#/Vol] 12.42 10*3/uL High 3.70-11.00 [facility] Comment on above: Order Comment: Speci men Type: BLOOD SPECIMENOrdering Facility: [facility] Address: [address] [place] [address] Performed By: #### 5 7021-8 ####[facility]ORATORYCLIA [id number] [address] [place] CT BRAIN WO IVCONon 08-05-19 CT BRAIN WO IVCON Normal [facility] Lactate (Bld) [Moles/Vol]on 08-04-2021 Lactate [Moles/Vol] 1.4 mmol/L Normal 0.5-2.2 [facility] Comment on above: Order Comment: Speci men Type: BLOOD SPECIMENOrdering Facility: [facility] Address: [address] [place] [address] Performed By: #### 3 2693-4 ####[facility]ORATORYCLIA [id number] [address] PROCALCITONIN (LAB)on 2021 Procalcitonin [Mass/Vol] 0.08 ng/mL Normal <0.09 [facility] Comment on above: Order Comment: Speci men Type: BLOOD SPECIMENOrdering Facility: [facility] Address: [address] [place] [address] Result Comment: For a guided interpretation of test results, please visit the Change in Procalcitonin Calculator, [email or web address]. Performed By: #### P ROCAL ####[facility]ORATORYCLIA [id number] [address] OF [facility] Prealbumin [Mass/Vol]on 07-07 Prealbumin Nephelometry [Mass/Vol] 35 mg/dL Normal 17-36 [facility] Comment on above: Order Comment: Speci men Type: BLOOD SPECIMENOrdering Facility: [facility] Address: [address] [place] [address] Performed By: #### 1 4338-8 ####[facility]ORATORYCLIA [id number] [address] OF [facility] SARS-CoV-2 RNA Resp Ql MEGAN+p robeon 08-04-2021 SARS-CoV-2 (COVID-19) RNA MEGAN+probe Ql (Resp) COVID 19 RESULT: SARS-CoV-2 (Agent of COVID-19) Not Detected by RT-PCR or equivalent method. This test has been authorized by FDA under an Emergency Use Authorization (EUA). Normal [facility] Comment on above: Performed By: #### 9 4500-6 ####[facility]ORATORYCLIA [id number] [address] [place] TYPE AND SCREENon 08-04-2021 ABO O Normal [facility] Comment on above: Order Comment: Speci men Type: BLOOD SPECIMENOrdering Facility: [facility] Address: [address] [place] [address] Performed By: #### T SCR ####[facility] BLOOD BANKCLIA [id number] [address] HISTORICAL AB SCR STATUS Negative Normal [facility] Comment on above: Order Comment: Speci men Type: BLOOD SPECIMENOrdering Facility: [facility] Address: [address] [place] [address] Performed By: #### T SCR ####[facility] BLOOD BANKCLIA [id number] [address] Rh Nom (Bld) Positive Normal [facility] Comment on above: Order Comment: Speci men Type: BLOOD SPECIMENOrdering Facility: [facility] Address: [address] [place] [address] Performed By: #### T SCR ####[facility]LOOD BANKCLIA [id number] [address] TYPE AND SCREEN EXPIRATION 08/07/2021 23:59 Normal [facility] Comment on above: Order Comment: Speci men Type: BLOOD SPECIMENOrdering Facility: [facility] Address: [address] [place] [address] Performed By: #### T SCR ####[facility] BLOOD BANKCLIA [id number] [address] [place] aPTT PPPon 08-04-2021 aPTT Coag (PPP) [Time] 51.8 s High 23.0-32.4 [facility] Comment on above: Order Comment: Speci men Type: BLOOD SPECIMENOrdering Facility: [facility] Address: [address] [place] [address] Performed By: #### 1 4979-9 ####[facility]ORATORYCLIA [id number] [address] Basic metabolic 2000 panelon 08-03-2021 Anion gap [Moles/Vol] 9 mmol/L Normal 9-18 [facility] Comment on above: Order Comment: Speci men Type: BLOOD SPECIMENOrdering Facility: [facility] Address: [address] [place] [address] Performed By: #### 2 4321-2, , 2776-05 ####[facility]ORATORYCLIA [id number] [place] [address] [place] Calcium [Mass/Vol] 9.3 mg/dL Normal 8.5-10.2 [facility] Comment on above: Order Comment: Speci men Type: BLOOD SPECIMENOrdering Facility: [facility] Address: [address] [place] [address] Performed By: #### 2 4321-2, , 2776-05 ####[facility]ORATORYCLIA [id number] [place] [address] [place] Chloride [Moles/Vol] 97 mmol/L Normal 97-105 [facility] Comment on above: Order Comment: Speci men Type: BLOOD SPECIMENOrdering Facility: [facility] Address: [address] [place] [address] Performed By: #### 2 4321-2, , 2776-05 ####[facility]ORATORYCLIA [id number] [place] [address] [place] CO2 [Moles/Vol] 27 mmol/L Normal 22-30 [facility] Comment on above: Order Comment: Speci men Type: BLOOD SPECIMENOrdering Facility: [facility] Address: [address] [place] [address] Performed By: #### 2 4321-2, , 2776-05 ####[facility]ORATORYCLIA [id number] [place] [address] [place] Creatinine [Mass/Vol] 0.63 mg/dL Low 0.73-1.22 [facility] Comment on above: Order Comment: Speci men Type: BLOOD SPECIMENOrdering Facility: [facility] Address: [address] [place] [address] Performed By: #### 2 4321-2, , 2776-05 ####[facility]ITALCLIA [id number] [address] OF [facility] ESTIMATED GLOMERULAR FILTRATION RATE 103 mL/min/1.73m??? Normal >=60 [facility] Comment on above: Order Comment: Shira feldman Type: BLOOD SPECIMENOrdering Facility: [facility] Address: [address] [place] [address] Result Comment: Luzmaria mated Glomerular Filtration Rate [...] Performed By: #### 2 4321-2, , 2776-05 ####[facility] LABORATORYIA [id number] [place] [address] [place] Glucose [Mass/Vol] 136 mg/dL High 74-99 [facility] Comment on above: Order Comment: Shira feldman Type: BLOOD SPECIMENOrdering Facility: [facility] Address: [address] [place] [address] Result Comment: The [place] [employer] (ADA) provides guidance for cutoff [...] Standards of Medical Care in Diabetes 2016, [place] [employer]. Diabetes Care. 2016.39(Suppl 1). Performed By: #### 2 4321-2, , 2776-05 ####[facility]ORATORYCLIA [id number] [place] [address] [place] Potassium [Moles/Vol] 4.1 mmol/L Normal 3.7-5.1 [facility] Comment on above: Order Comment: Speci men Type: BLOOD SPECIMENOrdering Facility: [facility] Address: [address] [place] [address] Performed By: #### 2 4321-2, , 2776-05 ####[facility]ORATORYCLIA [id number] [address] [place] Sodium [Moles/Vol] 133 mmol/L Low 136-144 [facility] Comment on above: Order Comment: Speci men Type: BLOOD SPECIMENOrdering Facility: [facility] Address: [address] [place] [address] Performed By: #### 2 4321-2, , 2776-05 ####[facility]ORATORYCLIA [id number] [address] [place] Urea nitrogen [Mass/Vol] 40 mg/dL High 9-24 [facility] Comment on above: Order Comment: Speci men Type: BLOOD SPECIMENOrdering Facility: [facility] Address: [address] [place] [address] Performed By: #### 2 4321-2, , 2776-05 ####[facility]ORATORYCLIA [id number] [address] [place] CASE MANAGEMon 08-03-2021 CASE MANAGEM Normal [facility] CBC W Auto Differential pane l (Bld)on 08-03-2021 Basophils (Bld) [#/Vol] 0.06 10*3/uL Normal <0.11 [facility] Comment on above: Order Comment: Speci men Type: BLOOD SPECIMENOrdering Facility: [facility] Address: [address] [place] [address] Performed By: #### 5 7021-8 ####[facility]ORATORYCLIA [id number] [address] [place] Basophils/100 WBC (Bld) 0.5 % Normal [facility] Comment on above: Order Comment: Speci men Type: BLOOD SPECIMENOrdering Facility: [facility] Address: [address] [place] [address] Performed By: #### 5 7021-8 ####[facility]ORATORYCLIA [id number] [address] [place] Differential cell count method Nom (Bld) Auto Normal [facility] Comment on above: Order Comment: Speci men Type: BLOOD SPECIMENOrdering Facility: [facility] Address: [address] [place] [address] Performed By: #### 5 7021-8 ####[facility]ORATORYCLIA [id number] [address] [place] Eosinophils (Bld) [#/Vol] 0.23 10*3/uL Normal <0.46 [facility] Comment on above: Order Comment: Speci men Type: BLOOD SPECIMENOrdering Facility: [facility] Address: [address] [place] [address] Performed By: #### 5 7021-8 ####[facility]ORATORYCLIA [id number] [address] [place] Eosinophils/100 WBC (Bld) 1.8 % Normal [facility] Comment on above: Order Comment: Speci men Type: BLOOD SPECIMENOrdering Facility: [facility] Address: [address] [place] [address] Performed By: #### 5 7021-8 ####[facility]ORATORYCLIA [id number] [address] [place] Erythrocyte distribution width (RBC) [Ratio] 17.6 % High 11.5-15.0 [facility] Comment on above: Order Comment: Speci men Type: BLOOD SPECIMENOrdering Facility: [facility] Address: [address] [place] [address] Performed By: #### 5 7021-8 ####[facility]ORATORYCLIA [id number] [address] Hematocrit (Bld) [Volume fraction] 30.7 % Low 39.0-51.0 [facility] Comment on above: Order Comment: Speci men Type: BLOOD SPECIMENOrdering Facility: [facility] Address: [address] [place] [address] Performed By: #### 5 7021-8 ####[facility]ORATORYCLIA [id number] [address] Hemoglobin (Bld) [Mass/Vol] 9.3 g/dL Low 13.0-17.0 [facility] Comment on above: Order Comment: Speci men Type: BLOOD SPECIMENOrdering Facility: [facility] Address: [address] [place] [address] Performed By: #### 5 7021-8 ####[facility]ORATORYCLIA [id number] [address] IMMATURE GRAN % 0.6 % Normal [facility] Comment on above: Order Comment: Speci men Type: BLOOD SPECIMENOrdering Facility: [facility] Address: [address] [place] [address] Performed By: #### 5 7021-8 ####[facility]ORATORYCLIA [id number] [address] IMMATURE GRAN ABS 0.08 k/uL Normal <0.10 [facility] Comment on above: Order Comment: Speci men Type: BLOOD SPECIMENOrdering Facility: [facility] Address: [address] [place] [address] Performed By: #### 5 7021-8 ####[facility]ORATORYCLIA [id number] [address] Lymphocytes (Bld) [#/Vol] 2.45 10*3/uL Normal 1.00-4.00 [facility] Comment on above: Order Comment: Speci men Type: BLOOD SPECIMENOrdering Facility: [facility] Address: [address] [place] [address] Performed By: #### 5 7021-8 ####[facility]ORATORYCLIA [id number] [address] Lymphocytes/100 WBC (Bld) 19.7 % Normal [facility] Comment on above: Order Comment: Speci men Type: BLOOD SPECIMENOrdering Facility: [facility] Address: [address] [place] [address] Performed By: #### 5 7021-8 ####[facility]ORATORYCLIA [id number] [address] MCH (RBC) [Entitic mass] 28.2 pg Normal 26.0-34.0 [facility] Comment on above: Order Comment: Speci men Type: BLOOD SPECIMENOrdering Facility: [facility] Address: [address] [place] [address] Performed By: #### 5 7021-8 ####[facility]ORATORYCLIA [id number] [address] STATES [facility] MCHC (RBC) [Mass/Vol] 30.3 g/dL Low 30.5-36.0 [facility] Comment on above: Order Comment: Speci men Type: BLOOD SPECIMENOrdering Facility: [facility] Address: [address] [place] [address] Performed By: #### 5 7021-8 ####[facility]ORATORYCLIA [id number] [address] MCV (RBC) [Entitic vol] 93.0 fL Normal 80.0-100.0 [facility] Comment on above: Order Comment: Speci men Type: BLOOD SPECIMENOrdering Facility: [facility] Address: [address] [place] [address] Performed By: #### 5 7021-8 ####[facility]ORATORYCLIA [id number] [address] Monocytes (Bld) [#/Vol] 0.72 10*3/uL Normal <0.87 [facility] Comment on above: Order Comment: Speci men Type: BLOOD SPECIMENOrdering Facility: [facility] Address: [address] [place] [address] Performed By: #### 5 7021-8 ####[facility] LABORATORYCLIA [id number] [address] [place] Monocytes/100 WBC (Bld) 5.8 % Normal [facility] Comment on above: Order Comment: Speci men Type: BLOOD SPECIMENOrdering Facility: [facility] Address: [address] [place] [address] Performed By: #### 5 7021-8 ####[facility]ORATORYCLIA [id number] [address] [place] Neutrophils (Bld) [#/Vol] 8.92 10*3/uL High 1.45-7.50 [facility] Comment on above: Order Comment: Speci men Type: BLOOD SPECIMENOrdering Facility: [facility] Address: [address] [place] [address] Performed By: #### 5 7021-8 ####[facility]ORATORYCLIA [id number] [address] [place] Neutrophils/100 WBC (Bld) 71.6 % Normal [facility] Comment on above: Order Comment: Speci men Type: BLOOD SPECIMENOrdering Facility: [facility] Address: [address] [place] [address] Performed By: #### 5 7021-8 ####[facility]ORATORYCLIA [id number] [address] [place] Nucleated RBC (Bld) [#/Vol] 10*3/uL Normal <0.01 [facility] Comment on above: Order Comment: Speci men Type: BLOOD SPECIMENOrdering Facility: [facility] Address: [address] [place] [address] Performed By: #### 5 7021-8 ####[facility]ORATORYCLIA [id number] [address] [place] Nucleated RBC/100 WBC (Bld) [Ratio] 0.0 /100 WBC Normal [facility] Comment on above: Order Comment: Speci men Type: BLOOD SPECIMENOrdering Facility: [facility] Address: [address] [place] [address] Performed By: #### 5 7021-8 ####[facility] LABORATORYCLIA [id number] [address] [place] Platelet mean volume (Bld) [Entitic vol] 10.2 fL Normal 9.0-12.7 [facility] Comment on above: Order Comment: Speci men Type: BLOOD SPECIMENOrdering Facility: [facility] Address: [address] [place] [address] Performed By: #### 5 7021-8 ####[facility] LABORATORYCLIA [id number] [address] [place] Platelets (Bld) [#/Vol] 352 10*3/uL Normal 150-400 [facility] Comment on above: Order Comment: Speci men Type: BLOOD SPECIMENOrdering Facility: [facility] Address: [address] [place] [address] Performed By: #### 5 7021-8 ####[facility] LABORATORYCLIA [id number] [address] [place] RBC (Bld) [#/Vol] 3.30 10*6/uL Low 4.20-6.00 [facility] Comment on above: Order Comment: Speci men Type: BLOOD SPECIMENOrdering Facility: [facility] Address: [address] [place] [address] Performed By: #### 5 7021-8 ####[facility]ORATORYCLIA [id number] [address] [place] WBC (Bld) [#/Vol] 12.46 10*3/uL High 3.70-11.00 [facility] Comment on above: Order Comment: Speci men Type: BLOOD SPECIMENOrdering Facility: [facility] Address: [address] [place] [address] Performed By: #### 5 7021-8 ####[facility]ORATORYCLIA [id number] [address] CONSULT PROGon 08-03-2021 CONSULT PROG Normal [facility] Magnesium SerPl-mCncon 08-03 Magnesium [Mass/Vol] 2.2 mg/dL Normal 1.7-2.3 [facility] Comment on above: Order Comment: Speci men Type: BLOOD SPECIMENOrdering Facility: [facility] Address: [address] [place] [address] Performed By: #### 2 4321-2, , 27711-04 ####[facility]ORATORYCLIA [id number] [address] NURSING PROGon 08-03-2021 NURSING PROG Normal [facility] Phosphate SerPl-mCncon 08-03 Phosphate [Mass/Vol] 4.2 mg/dL Normal 2.7-4.8 [facility] Comment on above: Order Comment: Speci men Type: BLOOD SPECIMENOrdering Facility: [facility] Address: [address] [place] [address] Performed By: #### 2 4321-2, , 27711-04 ####[facility]ORATORYCLIA [id number] [address] aPTT PPPon 08-03-2021 aPTT Coag (PPP) [Time] 50.0 s High 23.0-32.4 [facility] Comment on above: Order Comment: Speci men Type: BLOOD SPECIMENOrdering Facility: [facility] Address: [address] [place] [address] Performed By: #### 1 4979-9 ####[facility]ORATORYCLIA [id number] [address] CBC W Auto Differential pane l (Bld)on 08-02-2021 Basophils (Bld) [#/Vol] 10*3/uL Normal <0.11 [facility] Comment on above: Order Comment: Speci men Type: BLOOD SPECIMENOrdering Facility: [facility] Address: [address] [place] [address] Performed By: #### 5 7021-8 ####[facility]ORATORYCLIA [id number] [place] [address] [place] Basophils/100 WBC (Bld) 0.2 % Normal [facility] Comment on above: Order Comment: Speci men Type: BLOOD SPECIMENOrdering Facility: [facility] Address: [address] [place] [address] Performed By: #### 5 7021-8 ####[facility]ORATORYCLIA [id number] [address] [place] Differential cell count method Nom (Bld) Auto Normal [facility] Comment on above: Order Comment: Speci men Type: BLOOD SPECIMENOrdering Facility: [facility] Address: [address] [place] [address] Performed By: #### 5 7021-8 ####[facility] LABORATORYCLIA [id number] [place] [address] [place] Eosinophils (Bld) [#/Vol] 10*3/uL Normal <0.46 [facility] Comment on above: Order Comment: Speci men Type: BLOOD SPECIMENOrdering Facility: [facility] Address: [address] [place] [address] Performed By: #### 5 7021-8 ####[facility]ORATORYCLIA [id number] [address] [place] Eosinophils/100 WBC (Bld) 0.0 % Normal [facility] Comment on above: Order Comment: Speci men Type: BLOOD SPECIMENOrdering Facility: [facility] Address: [address] [place] [address] Performed By: #### 5 7021-8 ####[facility]ORATORYCLIA [id number] [address] Erythrocyte distribution width (RBC) [Ratio] 17.3 % High 11.5-15.0 [facility] Comment on above: Order Comment: Speci men Type: BLOOD SPECIMENOrdering Facility: [facility] Address: [address] [place] [address] Performed By: #### 5 7021-8 ####[facility]ORATORYCLIA [id number] [address] Hematocrit (Bld) [Volume fraction] 30.8 % Low 39.0-51.0 [facility] Comment on above: Order Comment: Speci men Type: BLOOD SPECIMENOrdering Facility: [facility] Address: [address] [place] [address] Performed By: #### 5 7021-8 ####[facility] LABORATORYCLIA [id number] [address] [place] [facility] Hemoglobin (Bld) [Mass/Vol] 9.7 g/dL Low 13.0-17.0 [facility] Comment on above: Order Comment: Speci men Type: BLOOD SPECIMENOrdering Facility: [facility] Address: [address] [place] [address] Performed By: #### 5 7021-8 ####[facility]ORATORYCLIA [id number] [address] IMMATURE GRAN % 0.5 % Normal [facility] Comment on above: Order Comment: Speci men Type: BLOOD SPECIMENOrdering Facility: [facility] Address: [address] [place] [address] Performed By: #### 5 7021-8 ####[facility]ORATORYCLIA [id number] [address] IMMATURE GRAN ABS 0.07 k/uL Normal <0.10 [facility] Comment on above: Order Comment: Speci men Type: BLOOD SPECIMENOrdering Facility: [facility] Address: [address] [place], [place] [address] Performed By: #### 5 7021-8 ####[facility] LABORATORYCLIA [id number] [address] OF [facility] Lymphocytes (Bld) [#/Vol] 1.60 10*3/uL Normal 1.00-4.00 [facility] Comment on above: Order Comment: Speci men Type: BLOOD SPECIMENOrdering Facility: [facility] Address: [address] [place] [address] Performed By: #### 5 7021-8 ####[facility] LABORATORYCLIA [id number] [address] Lymphocytes/100 WBC (Bld) 12.1 % Normal [facility] Comment on above: Order Comment: Speci men Type: BLOOD SPECIMENOrdering Facility: [facility] Address: [address] [place] [address] Performed By: #### 5 7021-8 ####[facility]ORATORYCLIA [id number] [address] STATES OF [facility] MCH (RBC) [Entitic mass] 28.6 pg Normal 26.0-34.0 [facility] Comment on above: Order Comment: Speci men Type: BLOOD SPECIMENOrdering Facility: [facility] Address: [address] [place] [address] Performed By: #### 5 7021-8 ####[facility]ORATORYCLIA [id number] [address] [place] MCHC (RBC) [Mass/Vol] 31.5 g/dL Normal 30.5-36.0 [facility] Comment on above: Order Comment: Speci men Type: BLOOD SPECIMENOrdering Facility: [facility] Address: [address] [place] [address] Performed By: #### 5 7021-8 ####[facility]ORATORYCLIA [id number] [address] [place] MCV (RBC) [Entitic vol] 90.9 fL Normal 80.0-100.0 [facility] Comment on above: Order Comment: Speci men Type: BLOOD SPECIMENOrdering Facility: [facility] Address: [address] [place] [address] Performed By: #### 5 7021-8 ####[facility] LABORATORYCLIA [id number] [place] [address] [place] Monocytes (Bld) [#/Vol] 0.39 10*3/uL Normal <0.87 [facility] Comment on above: Order Comment: Speci men Type: BLOOD SPECIMENOrdering Facility: [facility] Address: [address] [place] [address] Performed By: #### 5 7021-8 ####[facility] LABORATORYCLIA [id number] [address] [place] Monocytes/100 WBC (Bld) 3.0 % Normal [facility] Comment on above: Order Comment: Speci men Type: BLOOD SPECIMENOrdering Facility: [facility] Address: [address] [place] [address] Performed By: #### 5 7021-8 ####[facility] LABORATORYCLIA [id number] [place] [address] [place] Neutrophils (Bld) [#/Vol] 11.09 10*3/uL High 1.45-7.50 [facility] Comment on above: Order Comment: Speci men Type: BLOOD SPECIMENOrdering Facility: [facility] Address: [address] [place] [address] Performed By: #### 5 7021-8 ####[facility]ORATORYCLIA [id number] [place] [address] [place] Neutrophils/100 WBC (Bld) 84.2 % Normal [facility] Comment on above: Order Comment: Speci men Type: BLOOD SPECIMENOrdering Facility: [facility] Address: [address] [place] [address] Performed By: #### 5 7021-8 ####[facility]ORATORYCLIA [id number] [address] Nucleated RBC (Bld) [#/Vol] 10*3/uL Normal <0.01 [facility] Comment on above: Order Comment: Speci men Type: BLOOD SPECIMENOrdering Facility: [facility] Address: [address] [place] [address] Performed By: #### 5 7021-8 ####[facility] LABORATORYCLIA [id number] [address] [place] Nucleated RBC/100 WBC (Bld) [Ratio] 0.0 /100 WBC Normal [facility] Comment on above: Order Comment: Speci men Type: BLOOD SPECIMENOrdering Facility: [facility] Address: [address] [place] [address] Performed By: #### 5 7021-8 ####[facility]ORATORYCLIA [id number] [address] [place] Platelet mean volume (Bld) [Entitic vol] 10.0 fL Normal 9.0-12.7 [facility] Comment on above: Order Comment: Speci men Type: BLOOD SPECIMENOrdering Facility: [facility] Address: [address] [place] [address] Performed By: #### 5 7021-8 ####[facility]ORATORYCLIA [id number] [address] [place] Platelets (Bld) [#/Vol] 358 10*3/uL Normal 150-400 [facility] Comment on above: Order Comment: Speci men Type: BLOOD SPECIMENOrdering Facility: [facility] Address: [address] [place] [address] Performed By: #### 5 7021-8 ####[facility]ORATORYCLIA [id number] [address] [place] RBC (Bld) [#/Vol] 3.39 10*6/uL Low 4.20-6.00 [facility] Comment on above: Order Comment: Speci men Type: BLOOD SPECIMENOrdering Facility: [facility] Address: [address] [place], [place] [address] [address] Performed By: #### 5 7021-8 ####[facility]ORATORYCLIA [id number] [place] [address] [place] WBC (Bld) [#/Vol] 13.17 10*3/uL High 3.70-11.00 [facility] Comment on above: Order Comment: Speci men Type: BLOOD SPECIMENOrdering Facility: [facility] Address: [address] [place], [place] [address] [address] Performed By: #### 5 7021-8 ####[facility] LABORATORYCLIA [id number] [address] OF [facility] NURSING PROGon 08-02-2021 NURSING PROG Normal [facility] THERAPY NTon 08-02-2021 THERAPY NT Normal [facility] aPTT PPPon 08-02-2021 aPTT Coag (PPP) [Time] 54.9 s High 23.0-32.4 [facility] Comment on above: Order Comment: Speci men Type: BLOOD SPECIMENOrdering Facility: [facility] Address: [address] [place] [address] Performed By: #### 1 4979-9 ####[facility]ORATORYCLIA [id number] [address] [place] ALLIED HEALTHon 08-01-2021 ALLIED HEALTH Normal [facility] ALLIED HEALTH Normal [facility] Basic metabolic 2000 panelon 08-01-2021 Anion gap [Moles/Vol] 12 mmol/L Normal 9-18 [facility] Comment on above: Order Comment: Speci men Type: BLOOD SPECIMENOrdering Facility: [facility] Address: [facility] [place] [address] Performed By: #### 2 4321-2, 69980-1, 68362-2, 2777-1 ####[facility]ORATORYCLIA [id number] [place] [address] [place] Calcium [Mass/Vol] 9.1 mg/dL Normal 8.5-10.2 [facility] Comment on above: Order Comment: Speci men Type: BLOOD SPECIMENOrdering Facility: [facility] Address: [address] [place] [address] Performed By: #### 2 4321-2, 84415-3, 00763-1, 2777-1 ####[facility]ORATORYCLIA [id number] [place] [address] [place] Chloride [Moles/Vol] 96 mmol/L Low 97-105 [facility] Comment on above: Order Comment: Speci men Type: BLOOD SPECIMENOrdering Facility: [facility] Address: [address] [place] [address] Performed By: #### 2 4321-2, 62148-0, 16488-5, 2777-1 ####[facility]ORATORYCLIA [id number] [place] [address] [place] CO2 [Moles/Vol] 27 mmol/L Normal 22-30 [facility] Comment on above: Order Comment: Speci men Type: BLOOD SPECIMENOrdering Facility: [facility] Address: [address] [place] [address] Performed By: #### 2 4321-2, 40498-2, 80609-3, 2777- ####[facility]ORATORYCLIA [id number] [address] [place] Creatinine [Mass/Vol] 0.64 mg/dL Low 0.73-1.22 [facility] Comment on above: Order Comment: Speci men Type: BLOOD SPECIMENOrdering Facility: [facility] Address: [address] [place] [address] Performed By: #### 2 4321-2, 60821-4, 39939-7, 2777-1 ####[facility]ORATORYCLIA [id number] [address] OF [facility] ESTIMATED GLOMERULAR FILTRATION RATE 102 mL/min/1.73m??? Normal >=60 [facility] Comment on above: Order Comment: Speci men Type: BLOOD SPECIMENOrdering Facility: [facility] Address: [address] [place] [address] Result Comment: Luzmaria mated Glomerular Filtration Rate [...] actual GFR. Performed By: #### 2 4321-2, 09814-1, 96683-3, 2777-1 ####[facility]PITALCLIA [id number] [place] [address] [place] Glucose [Mass/Vol] 122 mg/dL High 74-99 [facility] Comment on above: Order Comment: Shira feldman Type: BLOOD SPECIMENOrdering Facility: [facility] Address: [address] [place], [place] [address] Result Comment: The [place] Diabetes [employer] (ADA) provides guidance for cutoff [...] Standards of Medical Care in Diabetes 2016, [place] [employer]. Diabetes Care. 2016.39(Suppl 1). Performed By: #### 2 4321-2, 56043-7, 82036-8, 2777-1 ####[facility]ORATORYCLIA [id number] [place] [address] [place] Potassium [Moles/Vol] 4.2 mmol/L Normal 3.7-5.1 [facility] Comment on above: Order Comment: Shira feldman Type: BLOOD SPECIMENOrdering Facility: [facility] Address: [address] [place] [address] Performed By: #### 2 4321-2, 83298-5, 28860-9, 2777-1 ####[facility]ORATORYCLIA [id number] [address] STATES OF [facility] Sodium [Moles/Vol] 135 mmol/L Low 136-144 [facility] Comment on above: Order Comment: Speci men Type: BLOOD SPECIMENOrdering Facility: [facility] Address: [address] [place] [address] Performed By: #### 2 4321-2, 35993-2, 12275-8, 2777-1 ####[facility]ORATORYCLIA [id number] [address] [place] Urea nitrogen [Mass/Vol] 36 mg/dL High 9-24 [facility] Comment on above: Order Comment: Speci men Type: BLOOD SPECIMENOrdering Facility: [facility] Address: [address] [place] [address] Performed By: #### 2 4321-2, 85998-4, 79262-9, 2777-1 ####[facility]ORATORYCLIA [id number] [address] [place] CASE MANAGEMon 08-01-2021 CASE MANAGEM Normal [facility] CBC W Auto Differential pane l (Bld)on 08-01-2021 Basophils (Bld) [#/Vol] 0.04 10*3/uL Normal <0.11 [facility] Comment on above: Order Comment: Speci men Type: BLOOD SPECIMENOrdering Facility: [facility] Address: [address] [place] [address] Performed By: #### 5 7021-8 ####[facility]ORATORYCLIA [id number] [address] [place] Basophils/100 WBC (Bld) 0.3 % Normal [facility] Comment on above: Order Comment: Speci men Type: BLOOD SPECIMENOrdering Facility: [facility] Address: [address] [place] [address] Performed By: #### 5 7021-8 ####[facility]ORATORYCLIA [id number] [address] Differential cell count method Nom (Bld) Auto Normal [facility] Comment on above: Order Comment: Speci men Type: BLOOD SPECIMENOrdering Facility: [facility] Address: [address] [place] [address] Performed By: #### 5 7021-8 ####[facility]ORATORYCLIA [id number] [address] Eosinophils (Bld) [#/Vol] 0.37 10*3/uL Normal <0.46 [facility] Comment on above: Order Comment: Speci men Type: BLOOD SPECIMENOrdering Facility: [facility] Address: [address] [place] [address] Performed By: #### 5 7021-8 ####[facility]ORATORYCLIA [id number] [address] Eosinophils/100 WBC (Bld) 3.1 % Normal [facility] Comment on above: Order Comment: Speci men Type: BLOOD SPECIMENOrdering Facility: [facility] Address: [address] [place] [address] Performed By: #### 5 7021-8 ####[facility]ORATORYCLIA [id number] [address] Erythrocyte distribution width (RBC) [Ratio] 17.5 % High 11.5-15.0 [facility] Comment on above: Order Comment: Speci men Type: BLOOD SPECIMENOrdering Facility: [facility] Address: [address] [place] [address] Performed By: #### 5 7021-8 ####[facility]ORATORYCLIA [id number] [address] Hematocrit (Bld) [Volume fraction] 30.1 % Low 39.0-51.0 [facility] Comment on above: Order Comment: Speci men Type: BLOOD SPECIMENOrdering Facility: [facility] Address: [address] [place] [address] Performed By: #### 5 7021-8 ####[facility]ORATORYCLIA [id number] [address] Hemoglobin (Bld) [Mass/Vol] 9.1 g/dL Low 13.0-17.0 [facility] Comment on above: Order Comment: Speci men Type: BLOOD SPECIMENOrdering Facility: [facility] Address: [address] [place] [address] Performed By: #### 5 7021-8 ####[facility]ORATORYCLIA [id number] [address] IMMATURE GRAN % 0.6 % Normal [facility] Comment on above: Order Comment: Speci men Type: BLOOD SPECIMENOrdering Facility: [facility] Address: [address] [place] [address] Performed By: #### 5 7021-8 ####[facility]ORATORYCLIA [id number] [address] IMMATURE GRAN ABS 0.07 k/uL Normal <0.10 [facility] Comment on above: Order Comment: Speci men Type: BLOOD SPECIMENOrdering Facility: [facility] Address: [address] [place] [address] Performed By: #### 5 7021-8 ####[facility]ORATORYCLIA [id number] [address] [place] Lymphocytes (Bld) [#/Vol] 2.05 10*3/uL Normal 1.00-4.00 [facility] Comment on above: Order Comment: Speci men Type: BLOOD SPECIMENOrdering Facility: [facility] Address: [address] [place] [address] Performed By: #### 5 7021-8 ####[facility]ORATORYCLIA [id number] [address] Lymphocytes/100 WBC (Bld) 17.1 % Normal [facility] Comment on above: Order Comment: Speci men Type: BLOOD SPECIMENOrdering Facility: [facility] Address: [address] [place] [address] Performed By: #### 5 7021-8 ####[facility]ORATORYCLIA [id number] [address] MCH (RBC) [Entitic mass] 27.7 pg Normal 26.0-34.0 [facility] Comment on above: Order Comment: Speci men Type: BLOOD SPECIMENOrdering Facility: [facility] Address: [address] [place] [address] Performed By: #### 5 7021-8 ####[facility]ORATORYCLIA [id number] [address] MCHC (RBC) [Mass/Vol] 30.2 g/dL Low 30.5-36.0 [facility] Comment on above: Order Comment: Speci men Type: BLOOD SPECIMENOrdering Facility: [facility] Address: [address] [place] [address] Performed By: #### 5 7021-8 ####[facility]ORATORYCLIA [id number] [address] MCV (RBC) [Entitic vol] 91.5 fL Normal 80.0-100.0 [facility] Comment on above: Order Comment: Speci men Type: BLOOD SPECIMENOrdering Facility: [facility] Address: [address] [place] [address] Performed By: #### 5 7021-8 ####[facility]ORATORYCLIA [id number] [address] Monocytes (Bld) [#/Vol] 0.53 10*3/uL Normal <0.87 [facility] Comment on above: Order Comment: Speci men Type: BLOOD SPECIMENOrdering Facility: [facility] Address: [address] [place] [address] Performed By: #### 5 7021-8 ####[facility]ORATORYCLIA [id number] [address] [place] Monocytes/100 WBC (Bld) 4.4 % Normal [facility] Comment on above: Order Comment: Speci men Type: BLOOD SPECIMENOrdering Facility: [facility] Address: [address] [place] [address] Performed By: #### 5 7021-8 ####[facility] LABORATORYCLIA [id number] [place] [address] [place] Neutrophils (Bld) [#/Vol] 8.91 10*3/uL High 1.45-7.50 [facility] Comment on above: Order Comment: Speci men Type: BLOOD SPECIMENOrdering Facility: [facility] Address: [address] [place] [address] Performed By: #### 5 7021-8 ####[facility]ORATORYCLIA [id number] [address] [place] Neutrophils/100 WBC (Bld) 74.5 % Normal [facility] Comment on above: Order Comment: Speci men Type: BLOOD SPECIMENOrdering Facility: [facility] Address: [address] [place] [address] Performed By: #### 5 7021-8 ####[facility]ORATORYCLIA [id number] [address] [place] Nucleated RBC (Bld) [#/Vol] 10*3/uL Normal <0.01 [facility] Comment on above: Order Comment: Speci men Type: BLOOD SPECIMENOrdering Facility: [facility] Address: [address] [place] [address] Performed By: #### 5 7021-8 ####[facility]ORATORYCLIA [id number] [address] [place] Nucleated RBC/100 WBC (Bld) [Ratio] 0.0 /100 WBC Normal [facility] Comment on above: Order Comment: Speci men Type: BLOOD SPECIMENOrdering Facility: [facility] Address: [address] Performed By: #### 5 7021-8 ####[facility]ORATORYCLIA [id number] [address] Platelet mean volume (Bld) [Entitic vol] 10.4 fL Normal 9.0-12.7 [facility] Comment on above: Order Comment: Speci men Type: BLOOD SPECIMENOrdering Facility: [facility] Address: [address] [place] [address] Performed By: #### 5 7021-8 ####[facility]ORATORYCLIA [id number] [address] [place] Platelets (Bld) [#/Vol] 319 10*3/uL Normal 150-400 [facility] Comment on above: Order Comment: Speci men Type: BLOOD SPECIMENOrdering Facility: [facility] Address: [address] [place] [address] Performed By: #### 5 7021-8 ####[facility]ORATORYCLIA [id number] [address] [place] RBC (Bld) [#/Vol] 3.29 10*6/uL Low 4.20-6.00 [facility] Comment on above: Order Comment: Speci men Type: BLOOD SPECIMENOrdering Facility: [facility] Address: [address] [place] [address] Performed By: #### 5 7021-8 ####[facility]ORATORYCLIA [id number] [address] [place] WBC (Bld) [#/Vol] 11.97 10*3/uL High 3.70-11.00 [facility] Comment on above: Order Comment: Speci men Type: BLOOD SPECIMENOrdering Facility: [facility] Address: [address] [place] [address] Performed By: #### 5 7021-8 ####[facility]ORATORYCLIA [id number] [address] [place] CT BRAIN WO IVCONon 08-02-19 CT BRAIN WO IVCON Normal [facility] Magnesium SerPl-mCncon 08-01 Magnesium [Mass/Vol] 2.4 mg/dL High 1.7-2.3 [facility] Comment on above: Order Comment: Speci men Type: BLOOD SPECIMENOrdering Facility: [facility] Address: [address] [place] [address] Performed By: #### 2 4321-2, 01967-4, 87135-8, 2777-1 ####[facility]ORATORYCLIA [id number] [place] [address] [place] NURSING PROGon 08-01-2021 NURSING PROG Normal [facility] NUTRITIONon 08-01-2021 NUTRITION Normal [facility] Phosphate SerPl-mCncon 08-01 Phosphate [Mass/Vol] 3.3 mg/dL Normal 2.7-4.8 [facility] Comment on above: Order Comment: Speci men Type: BLOOD SPECIMENOrdering Facility: [facility] Address: [address] [place] [address] Performed By: #### 2 4321-2, 43015-9, 80066-2, 2777-1 ####[facility]ORATORYCLIA [id number] [address] [place] Prealbumin [Mass/Vol]on 07-06 Prealbumin Nephelometry [Mass/Vol] 30 mg/dL Normal 17-36 [facility] Comment on above: Order Comment: Speci men Type: BLOOD SPECIMENOrdering Facility: [facility] Address: [address] [place] [address] Performed By: #### 2 4321-2, 51749-9, 45286-8, 2777-1 ####[facility]ORATORYCLIA [id number] [address] [place] THERAPY NTon 08-01-2021 THERAPY NT Normal [facility] THERAPY NT Normal [facility] TYPE AND SCREENon 08-01-2021 ABO O Normal [facility] Comment on above: Order Comment: Speci men Type: BLOOD SPECIMENOrdering Facility: [facility] Address: [address] [place] [address] Performed By: #### T SCR ####[facility] BANKCLIA [id number] [address] HISTORICAL AB SCR STATUS Negative Normal [facility] Comment on above: Order Comment: Speci men Type: BLOOD SPECIMENOrdering Facility: [facility] Address: [address] [place] [address] Performed By: #### T SCR ####[facility] BANKCLIA [id number] [address] Rh Nom (Bld) Positive Normal [facility] Comment on above: Order Comment: Speci men Type: BLOOD SPECIMENOrdering Facility: [facility] Address: [address] [place] [address] Performed By: #### T SCR ####[facility] BANKCLIA [id number] [address] TYPE AND SCREEN EXPIRATION 08/04/2021 23:59 Normal [facility] Comment on above: Order Comment: Speci men Type: BLOOD SPECIMENOrdering Facility: [facility] Address: [address] [place] [address] Performed By: #### T SCR ####[facility]LOOD BANKCLIA [id number] [address] [place] XR CHEST 1V FRONTALon 2021 XR CHEST 1V FRONTAL Normal [facility] aPTT PPPon 08-01-2021 aPTT Coag (PPP) [Time] 50.9 s High 23.0-32.4 [facility] Comment on above: Order Comment: Speci men Type: BLOOD SPECIMENOrdering Facility: [facility] Address: [address] [place] [address] Performed By: #### 1 4979-9 ####[facility] LABORATORYCLIA [id number] [address] STATES OF [facility] CBC W Auto Differential pane l (Bld)on 07-31-2021 Basophils (Bld) [#/Vol] 0.05 10*3/uL Normal <0.11 [facility] Comment on above: Order Comment: Speci men Type: BLOOD SPECIMENOrdering Facility: [facility] Address: [address] [place] [address] Performed By: #### 5 7021-8 ####[facility] LABORATORYCLIA [id number] [address] Basophils/100 WBC (Bld) 0.4 % Normal [facility] Comment on above: Order Comment: Speci men Type: BLOOD SPECIMENOrdering Facility: [facility] Address: [address] [place] [address] Performed By: #### 5 7021-8 ####[facility]ORATORYCLIA [id number] [address] Differential cell count method Nom (Bld) Auto Normal [facility] Comment on above: Order Comment: Speci men Type: BLOOD SPECIMENOrdering Facility: [facility] Address: [address] [place] [address] Performed By: #### 5 7021-8 ####[facility] LABORATORYCLIA [id number] [address] [place] Eosinophils (Bld) [#/Vol] 0.51 10*3/uL High <0.46 [facility] Comment on above: Order Comment: Speci men Type: BLOOD SPECIMENOrdering Facility: [facility] Address: [address] [place] [address] Performed By: #### 5 7021-8 ####[facility]ORATORYCLIA [id number] [address] Eosinophils/100 WBC (Bld) 4.5 % Normal [facility] Comment on above: Order Comment: Speci men Type: BLOOD SPECIMENOrdering Facility: [facility] Address: [address] [place] [address] Performed By: #### 5 7021-8 ####[facility] LABORATORYCLIA [id number] [address] Erythrocyte distribution width (RBC) [Ratio] 17.5 % High 11.5-15.0 [facility] Comment on above: Order Comment: Speci men Type: BLOOD SPECIMENOrdering Facility: [facility] Address: [address] [place] [address] Performed By: #### 5 7021-8 ####[facility]ATORYCLIA [id number] [address] Hematocrit (Bld) [Volume fraction] 30.4 % Low 39.0-51.0 [facility] Comment on above: Order Comment: Speci men Type: BLOOD SPECIMENOrdering Facility: [facility] Address: [address] [place] [address] Performed By: #### 5 7021-8 ####[facility]ATORYCLIA [id number] [address] Hemoglobin (Bld) [Mass/Vol] 9.2 g/dL Low 13.0-17.0 [facility] Comment on above: Order Comment: Speci men Type: BLOOD SPECIMENOrdering Facility: [facility] Address: [address] [place] [address] Performed By: #### 5 7021-8 ####[facility]ORYCLIA [id number] [address] IMMATURE GRAN % 0.5 % Normal [facility] Comment on above: Order Comment: Speci men Type: BLOOD SPECIMENOrdering Facility: [facility] Address: [address] [place] [address] Performed By: #### 5 7021-8 ####[facility]ORYCLIA [id number] [address] IMMATURE GRAN ABS 0.06 k/uL Normal <0.10 [facility] Comment on above: Order Comment: Speci men Type: BLOOD SPECIMENOrdering Facility: [facility] Address: [address] [place] [address] Performed By: #### 5 7021-8 ####[facility]ORYCLIA [id number] [address] Lymphocytes (Bld) [#/Vol] 1.99 10*3/uL Normal 1.00-4.00 [facility] Comment on above: Order Comment: Speci men Type: BLOOD SPECIMENOrdering Facility: [facility] Address: [address] [place] [address] Performed By: #### 5 7021-8 ####[facility]ORYCLIA [id number] [address] Lymphocytes/100 WBC (Bld) 17.6 % Normal [facility] Comment on above: Order Comment: Speci men Type: BLOOD SPECIMENOrdering Facility: [facility] Address: [address] [place] [address] Performed By: #### 5 7021-8 ####[facility]ORYCLIA [id number] [address] MCH (RBC) [Entitic mass] 28.4 pg Normal 26.0-34.0 [facility] Comment on above: Order Comment: Speci men Type: BLOOD SPECIMENOrdering Facility: [facility] Address: [address] [place] [address] Performed By: #### 5 7021-8 ####[facility]ATORYCLIA [id number] [address] [place] MCHC (RBC) [Mass/Vol] 30.3 g/dL Low 30.5-36.0 [facility] Comment on above: Order Comment: Speci men Type: BLOOD SPECIMENOrdering Facility: [facility] Address: [address] [place] [address] Performed By: #### 5 7021-8 ####[facility]ATORYCLIA [id number] [address] MCV (RBC) [Entitic vol] 93.8 fL Normal 80.0-100.0 [facility] Comment on above: Order Comment: Speci men Type: BLOOD SPECIMENOrdering Facility: [facility] Address: [address] [place] [address] Performed By: #### 5 7021-8 ####[facility]ORYCLIA [id number] [address] [place] Monocytes (Bld) [#/Vol] 0.57 10*3/uL Normal <0.87 [facility] Comment on above: Order Comment: Speci men Type: BLOOD SPECIMENOrdering Facility: [facility] Address: [address] [place] [address] Performed By: #### 5 7021-8 ####[facility]ATORYCLIA [id number] [address] Monocytes/100 WBC (Bld) 5.0 % Normal [facility] Comment on above: Order Comment: Speci men Type: BLOOD SPECIMENOrdering Facility: [facility] Address: [address] [place] [address] Performed By: #### 5 7021-8 ####[facility]ATORYCLIA [id number] [address] [place] Neutrophils (Bld) [#/Vol] 8.12 10*3/uL High 1.45-7.50 [facility] Comment on above: Order Comment: Speci men Type: BLOOD SPECIMENOrdering Facility: [facility] Address: [address] [place] [address] Performed By: #### 5 7021-8 ####[facility]ATORYCLIA [id number] [address] [place] Neutrophils/100 WBC (Bld) 72.0 % Normal [facility] Comment on above: Order Comment: Speci men Type: BLOOD SPECIMENOrdering Facility: [facility] Address: [address] [place] [address] Performed By: #### 5 7021-8 ####[facility]ATORYCLIA [id number] [address] [place] Nucleated RBC (Bld) [#/Vol] 10*3/uL Normal <0.01 [facility] Comment on above: Order Comment: Speci men Type: BLOOD SPECIMENOrdering Facility: [facility] Address: [address] [place] [address] Performed By: #### 5 7021-8 ####[facility]ATORYCLIA [id number] [address] [place] Nucleated RBC/100 WBC (Bld) [Ratio] 0.0 /100 WBC Normal [facility] Comment on above: Order Comment: Speci men Type: BLOOD SPECIMENOrdering Facility: [facility] Address: [address] [place] [address] Performed By: #### 5 7021-8 ####[facility]ATORYCLIA [id number] [address] Platelet mean volume (Bld) [Entitic vol] 10.9 fL Normal 9.0-12.7 [facility] Comment on above: Order Comment: Speci men Type: BLOOD SPECIMENOrdering Facility: [facility] Address: [address] [place] [address] Performed By: #### 5 7021-8 ####[facility]ATORYCLIA [id number] [address] [place] Platelets (Bld) [#/Vol] 303 10*3/uL Normal 150-400 [facility] Comment on above: Order Comment: Speci men Type: BLOOD SPECIMENOrdering Facility: [facility] Address: [address] [place] [address] Performed By: #### 5 7021-8 ####[facility]ATORYCLIA [id number] [address] [place] RBC (Bld) [#/Vol] 3.24 10*6/uL Low 4.20-6.00 [facility] Comment on above: Order Comment: Speci men Type: BLOOD SPECIMENOrdering Facility: [facility] Address: [address] [place] [address] Performed By: #### 5 7021-8 ####[facility]ATORYCLIA [id number] [address] [place] WBC (Bld) [#/Vol] 11.30 10*3/uL High 3.70-11.00 [facility] Comment on above: Order Comment: Speci men Type: BLOOD SPECIMENOrdering Facility: [facility] Address: [address] [place] [address] Performed By: #### 5 7021-8 ####[facility]ATORYCLIA [id number] [address] NURSING PROGon 07-31-2021 NURSING PROG Normal [facility] aPTT PPPon 07-31-2021 aPTT Coag (PPP) [Time] 64.9 s High 23.0-32.4 [facility] Comment on above: Order Comment: Speci men Type: BLOOD SPECIMENOrdering Facility: [facility] Address: [address] [place] [address] Performed By: #### 1 4979-9 ####[facility]ATORYCLIA [id number] [address] [place] ALLIED HEALTHon 07-30-2021 ALLIED HEALTH Normal [facility] Bacteria CSF Culton 07-31-19 22 Bacteria identified Cx Nom (CSF) CULTURE, CSF: No growth 14 days GRAM STAIN: No organisms seen Few Mononuclear cells Rare Polymorphonuclear leukocytes Gram stain performed on cytospun specimen. [facility] Comment on above: Performed By: #### 6 06-4 ####[facility]ATORYCLIA [id number] [address] [place] Basic metabolic 2000 panelon 07-30-2021 Anion gap [Moles/Vol] 9 mmol/L Normal 9-18 [facility] Comment on above: Order Comment: Speci men Type: BLOOD SPECIMENOrdering Facility: [facility] Address: [address] [place] [address] Performed By: #### 2 777-1, , ####[facility]ATORYCLIA [id number] [place] [address] [place] Calcium [Mass/Vol] 8.9 mg/dL Normal 8.5-10.2 [facility] Comment on above: Order Comment: Speci men Type: BLOOD SPECIMENOrdering Facility: [facility] Address: [address] [place] [address] Performed By: #### 2 777-1, , ####[facility]ATORYCLIA [id number] [place] [address] [place] Chloride [Moles/Vol] 95 mmol/L Low 97-105 [facility] Comment on above: Order Comment: Speci men Type: BLOOD SPECIMENOrdering Facility: [facility] Address: [address] [place] [address] Performed By: #### 2 777-1, , ####[facility]ATORYCLIA [id number] [place] [address] [place] CO2 [Moles/Vol] 28 mmol/L Normal 22-30 [facility] Comment on above: Order Comment: Speci men Type: BLOOD SPECIMENOrdering Facility: [facility] Address: [address] [place] [address] Performed By: #### 2 777-1, , ####[facility]ATORYCLIA [id number] [place] [address] [place] Creatinine [Mass/Vol] 0.67 mg/dL Low 0.73-1.22 [facility] Comment on above: Order Comment: Speci men Type: BLOOD SPECIMENOrdering Facility: [facility] Address: [address] [place] [address] Performed By: #### 2 777-1, 02701-2 ####[facility]PITALCLIA [id number] [place] [address] [place] ESTIMATED GLOMERULAR FILTRATION RATE 101 mL/min/1.73m??? Normal >=60 [facility] Comment on above: Order Comment: Shira feldman Type: BLOOD SPECIMENOrdering Facility: [facility] Address: [address] [place] [address] Result Comment: Luzmaria mated Glomerular Filtration Rate [...] actual GFR. Performed By: #### 2 777-1, 73122-7, ####[facility]PITALCLIA [id number] [place] [id number] [place] Glucose [Mass/Vol] 125 mg/dL High 74-99 [facility] Comment on above: Order Comment: Johncara feldman Type: BLOOD SPECIMENOrdering Facility: [facility] Address: [address] [place] [address] Result Comment: The [place] [employer] (ADA) provides guidance for cutoff [...] Standards of Medical Care in Diabetes 2016, [place] [employer]. Diabetes Care. 2016.39(Suppl 1). Performed By: #### 2 777-1, 37291-2, ####[facility] HOSPITALIA [id number] [place] [address] [place] Potassium [Moles/Vol] 3.9 mmol/L Normal 3.7-5.1 [facility] Comment on above: Order Comment: Speci men Type: BLOOD SPECIMENOrdering Facility: [facility] Address: [address] [place] [address] Performed By: #### 2 777-1, 09157-3, ####[facility]ATORYCLIA [id number] [place] [address] [place] Sodium [Moles/Vol] 132 mmol/L Low 136-144 [facility] Comment on above: Order Comment: Speci men Type: BLOOD SPECIMENOrdering Facility: [facility] Address: [address] [place] [address] Performed By: #### 2 777-1, 42214-6, ####[facility]ATORYCLIA [id number] [address] [place] Urea nitrogen [Mass/Vol] 38 mg/dL High 9-24 [facility] Comment on above: Order Comment: Speci men Type: BLOOD SPECIMENOrdering Facility: [facility] Address: [address] [place] [address] Performed By: #### 2 777-1, 93497-5, ####[facility]ATORYCLIA [id number] [address] [place] CBC W Auto Differential pane l (Bld)on 07-30-2021 Basophils (Bld) [#/Vol] 0.04 10*3/uL Normal <0.11 [facility] Comment on above: Order Comment: Speci men Type: BLOOD SPECIMENOrdering Facility: [facility] Address: [address] [place] [address] Performed By: #### 5 7021-8 ####[facility]ORYCLIA [id number] [address] [place] Basophils/100 WBC (Bld) 0.4 % Normal [facility] Comment on above: Order Comment: Speci men Type: BLOOD SPECIMENOrdering Facility: [facility] Address: [address] [place] [address] Performed By: #### 5 7021-8 ####[facility]ATORYCLIA [id number] [address] Differential cell count method Nom (Bld) Auto Normal [facility] Comment on above: Order Comment: Speci men Type: BLOOD SPECIMENOrdering Facility: [facility] Address: [address] [place] [address] Performed By: #### 5 7021-8 ####[facility]ORYCLIA [id number] [address] Eosinophils (Bld) [#/Vol] 0.30 10*3/uL Normal <0.46 [facility] Comment on above: Order Comment: Speci men Type: BLOOD SPECIMENOrdering Facility: [facility] Address: [address] [place] [address] Performed By: #### 5 7021-8 ####[facility]ORYCLIA [id number] [address] Eosinophils/100 WBC (Bld) 2.7 % Normal [facility] Comment on above: Order Comment: Speci men Type: BLOOD SPECIMENOrdering Facility: [facility] Address: [address] [place] [address] Performed By: #### 5 7021-8 ####[facility]ORYCLIA [id number] [address] Erythrocyte distribution width (RBC) [Ratio] 17.2 % High 11.5-15.0 [facility] Comment on above: Order Comment: Speci men Type: BLOOD SPECIMENOrdering Facility: [facility] Address: [address] [place] [address] Performed By: #### 5 7021-8 ####[facility]ORYCLIA [id number] [address] Hematocrit (Bld) [Volume fraction] 30.8 % Low 39.0-51.0 [facility] Comment on above: Order Comment: Speci men Type: BLOOD SPECIMENOrdering Facility: [facility] Address: [address] [place] [address] Performed By: #### 5 7021-8 ####[facility]ATORYCLIA [id number] [address] [place] Hemoglobin (Bld) [Mass/Vol] 9.4 g/dL Low 13.0-17.0 [facility] Comment on above: Order Comment: Speci men Type: BLOOD SPECIMENOrdering Facility: [facility] Address: [address] [place] [address] Performed By: #### 5 7021-8 ####[facility]ATORYCLIA [id number] [address] [place] IMMATURE GRAN % 0.5 % Normal [facility] Comment on above: Order Comment: Speci men Type: BLOOD SPECIMENOrdering Facility: [facility] Address: [address] [place] [address] Performed By: #### 5 7021-8 ####[facility]ATORYCLIA [id number] [address] IMMATURE GRAN ABS 0.06 k/uL Normal <0.10 [facility] Comment on above: Order Comment: Speci men Type: BLOOD SPECIMENOrdering Facility: [facility] Address: [address] [place] [address] Performed By: #### 5 7021-8 ####[facility]ATORYCLIA [id number] [address] [place] Lymphocytes (Bld) [#/Vol] 1.68 10*3/uL Normal 1.00-4.00 [facility] Comment on above: Order Comment: Speci men Type: BLOOD SPECIMENOrdering Facility: [facility] Address: [address] [place] [address] Performed By: #### 5 7021-8 ####[facility]ORATORYCLIA [id number] [address] Lymphocytes/100 WBC (Bld) 15.3 % Normal [facility] Comment on above: Order Comment: Speci men Type: BLOOD SPECIMENOrdering Facility: [facility] Address: [address] [place] [address] Performed By: #### 5 7021-8 ####[facility]ATORYCLIA [id number] [address] MCH (RBC) [Entitic mass] 28.0 pg Normal 26.0-34.0 [facility] Comment on above: Order Comment: Speci men Type: BLOOD SPECIMENOrdering Facility: [facility] Address: [address] [place] [address] Performed By: #### 5 7021-8 ####[facility]ATORYCLIA [id number] [address] [place] MCHC (RBC) [Mass/Vol] 30.5 g/dL Normal 30.5-36.0 [facility] Comment on above: Order Comment: Speci men Type: BLOOD SPECIMENOrdering Facility: [facility] Address: [address] [place] [address] Performed By: #### 5 7021-8 ####[facility]ORYCLIA [id number] [address] MCV (RBC) [Entitic vol] 91.7 fL Normal 80.0-100.0 [facility] Comment on above: Order Comment: Speci men Type: BLOOD SPECIMENOrdering Facility: [facility] Address: [address] [place] [address] Performed By: #### 5 7021-8 ####[facility]ATORYCLIA [id number] [address] Monocytes (Bld) [#/Vol] 0.53 10*3/uL Normal <0.87 [facility] Comment on above: Order Comment: Speci men Type: BLOOD SPECIMENOrdering Facility: [facility] Address: [address] [place] [address] Performed By: #### 5 7021-8 ####[facility]ORATORYCLIA [id number] [address] [place] Monocytes/100 WBC (Bld) 4.8 % Normal [facility] Comment on above: Order Comment: Speci men Type: BLOOD SPECIMENOrdering Facility: [facility] Address: [address] [place] [address] Performed By: #### 5 7021-8 ####[facility]ORATORYCLIA [id number] [address] [place] Neutrophils (Bld) [#/Vol] 8.39 10*3/uL High 1.45-7.50 [facility] Comment on above: Order Comment: Speci men Type: BLOOD SPECIMENOrdering Facility: [facility] Address: [address] [place] [address] Performed By: #### 5 7021-8 ####[facility]ATORYCLIA [id number] [address] STATES [facility] Neutrophils/100 WBC (Bld) 76.3 % Normal [facility] Comment on above: Order Comment: Speci men Type: BLOOD SPECIMENOrdering Facility: [facility] Address: [address] [place] [address] Performed By: #### 5 7021-8 ####[facility]ORATORYCLIA [id number] [address] [place] Nucleated RBC (Bld) [#/Vol] 10*3/uL Normal <0.01 [facility] Comment on above: Order Comment: Speci men Type: BLOOD SPECIMENOrdering Facility: [facility] Address: [address] [place] [address] Performed By: #### 5 7021-8 ####[facility]ATORYCLIA [id number] [address] [place] Nucleated RBC/100 WBC (Bld) [Ratio] 0.0 /100 WBC Normal [facility] Comment on above: Order Comment: Speci men Type: BLOOD SPECIMENOrdering Facility: [facility] Address: [address] [place] [address] Performed By: #### 5 7021-8 ####[facility]ATORYCLIA [id number] [address] [place] Platelet mean volume (Bld) [Entitic vol] 10.9 fL Normal 9.0-12.7 [facility] Comment on above: Order Comment: Speci men Type: BLOOD SPECIMENOrdering Facility: [facility] Address: [address] [place], [place] [address] Performed By: #### 5 7021-8 ####[facility]ATORYCLIA [id number] [address] [place] Platelets (Bld) [#/Vol] 287 10*3/uL Normal 150-400 [facility] Comment on above: Order Comment: Speci men Type: BLOOD SPECIMENOrdering Facility: [facility] Address: [address] [place] [address] Performed By: #### 5 7021-8 ####[facility]ORATORYCLIA [id number] [place] [address] [place] RBC (Bld) [#/Vol] 3.36 10*6/uL Low 4.20-6.00 [facility] Comment on above: Order Comment: Speci men Type: BLOOD SPECIMENOrdering Facility: [facility] Address: [address] [place], [place] [address] Performed By: #### 5 7021-8 ####[facility]ORATORYCLIA [id number] [place] [address] [place] WBC (Bld) [#/Vol] 11.00 10*3/uL Normal 3.70-11.00 [facility] Comment on above: Order Comment: Speci men Type: BLOOD SPECIMENOrdering Facility: [facility] Address: [address] [place] [address] Performed By: #### 5 7021-8 ####[facility]ATORYCLIA [id number] [address] [place] CSF MANUAL DIFFon 07-30-2021 DIF TTL, CSF 100 cells counted Normal [facility] Comment on above: Order Comment: Speci men Type: CEREBROSPINAL FLUIDOrdering Facility: [facility] Address: [address] [place] [address] Performed By: #### L [id number], [id number], 98895-3 ####[facility]ATORYCLIA [id number] [address] [place] EOSIN%, CSF 0 % Normal [facility] Comment on above: Order Comment: Speci men Type: CEREBROSPINAL FLUIDOrdering Facility: [facility] Address: [address] [place] [address] Performed By: #### L [id number], [id number], 07257-4 ####[facility]ORYCLIA [id number] [address] [place] LYMPH%, CSF 75 % Normal 50-90 [facility] Comment on above: Order Comment: Speci men Type: CEREBROSPINAL FLUIDOrdering Facility: [facility] Address: [address] [place] [address] Performed By: #### L [id number], KBV7559, 57920-7 ####[facility]ATORYCLIA [id number] [place] [address] [place] MACRO%, CSF 9 % High <1 [facility] Comment on above: Order Comment: Speci men Type: CEREBROSPINAL FLUIDOrdering Facility: [facility] Address: [address] [place] [address] Performed By: #### L [id number], [id number], 57360-4 ####[facility]ORYCLIA [id number] [address] [place] MONO%, CSF 10 % Normal 10-50 [facility] Comment on above: Order Comment: Speci men Type: CEREBROSPINAL FLUIDOrdering Facility: [facility] Address: [address] [place] [address] Performed By: #### L [id number], PBN3952, 24353-4 ####[facility]ORYCLIA [id number] [address] STATES OF [facility] OTHER CL%, CSF 4 % Normal [facility] Comment on above: Order Comment: Speci men Type: CEREBROSPINAL FLUIDOrdering Facility: [facility] Address: [address] [place] [address] Result Comment: Path review to follow. Performed By: #### L [id number], PKC7210, 65596-8 ####[facility]ORYCLIA [id number] [address] [place] REAC LYMPH %, CSF 2 % Normal [facility] Comment on above: Order Comment: Speci men Type: CEREBROSPINAL FLUIDOrdering Facility: [facility] Address: [address] [place] [address] Performed By: #### L [id number], [id number], 07675-4 ####[facility]ORYCLIA [id number] [address] CSF PATHOLOGIST INTERP (LAB REFLEX ORDER-NO BILL)on 07-30-2021 CSF STAFF REVIEW Negative Normal [facility] Comment on above: Order Comment: Speci men Type: CEREBROSPINAL FLUIDOrdering Facility: [facility] Address: [address] [place] [address] Performed By: #### L [id number], BMX9297, 78976-4 ####[facility]ORYCLIA [id number] [address] Pathologist name Reviewed by Eloise rebolledo MD [facility] Comment on above: Order Comment: Speci men Type: CEREBROSPINAL FLUIDOrdering Facility: [facility] Address: [address] [place] [address] Performed By: #### L [id number], ZRR7539, 01931-4 ####[facility]ORYCLIA [id number] [address] [place] BRAIN WO IVCONon 07-31-19 CT BRAIN WO IVCON Normal [facility] Cell count panel (CSF)on Clarity (CSF) Clear Normal Clear [facility] Comment on above: Order Comment: Speci men Type: CEREBROSPINAL FLUIDOrdering Facility: [facility] Address: [address] [place] [address] Performed By: #### L [id number], TMQ5653, 65594-1 ####[facility]ORYCLIA [id number] [address] Clarity (Unsp spec) Clear Normal Clear [facility] Comment on above: Order Comment: Speci men Type: CEREBROSPINAL FLUIDOrdering Facility: [facility] Address: [address] [address] Performed By: #### L [id number], [id number], 43438-8 ####[facility]ORATORYCLIA [id number] [address] OF [facility] Color (CSF) Colorless Normal Colorless [facility] Comment on above: Order Comment: Speci men Type: CEREBROSPINAL FLUIDOrdering Facility: [facility] Address: [address] [address] Performed By: #### L [id number], [id number], 12160-4 ####[facility]ORATORYCLIA [id number] [address] Color (Spun CSF) Colorless Normal Colorless [facility] Comment on above: Order Comment: Speci men Type: CEREBROSPINAL FLUIDOrdering Facility: [facility] Address: [address] [address] Performed By: #### L [id number], [id number], 58243-2 ####[facility]ORATORYCLIA [id number] [address] [facility] [place] CSF TUBE NUMBER [employer] Normal [facility] Comment on above: Order Comment: Speci men Type: CEREBROSPINAL FLUIDOrdering Facility: [facility] Address: [address] [address] Performed By: #### L [id number], YEA0974, 80026-7 ####[facility]ATORYCLIA [id number] [address] RBC Manual cnt (CSF) [#/Vol] 9 cells/uL High 0-5 [facility] Comment on above: Order Comment: Speci men Type: CEREBROSPINAL FLUIDOrdering Facility: [facility] Address: [address] [place] [address] Performed By: #### L [id number], [id number], 49098-4 ####[facility]ATORYCLIA [id number] [address] WBC Manual cnt (CSF) [#/Vol] 8 cells/uL High 0-5 [facility] Comment on above: Order Comment: Speci men Type: CEREBROSPINAL FLUIDOrdering Facility: [facility] Address: [address] [place] [address] Performed By: #### L [id number], [id number], 44289-2 ####[facility]ITALCLIA [id number] [address] Glucose CSF-ncon 2 Glucose (CSF) [Mass/Vol] 65 mg/dL Normal 40-70 [facility] Comment on above: Order Comment: Speci men Type: CEREBROSPINAL FLUIDOrdering Facility: [facility] Address: [address] [place] [address] Result Comment: Lumb ar CSF glucose values of healthy patients are approximately 60% of the plasma values and must always be compared with a concurrently measured plasma value for adequate clinical interpretation.References: 1. Glucose HK (GLUC3) [package insert V 12.0 [place]]. [employer], [place], [place]. September 2015. 2. Michelle Moore, Loki, H. (2015). Chapter 7: Glucose and Lactate. Marianela Rothman.(eds.), Cerebrospinal Fluid in Clinical Neurology. [place]: [employer]. Performed By: #### 2 342-4, 2880-3 ####[facility]ATORYCLIA [id number] [address] [place] Magnesium SerPl-ncon 07-30 Magnesium [Mass/Vol] 2.5 mg/dL High 1.7-2.3 [facility] Comment on above: Order Comment: Speci men Type: BLOOD SPECIMENOrdering Facility: [facility] Address: [address] [place] [address] Performed By: #### 2 777-1, 81376-7, 22227-0 ####[facility]ORYCLIA [id number] [address] OF [facility] NURSING PROGon 07-30-2021 NURSING PROG Normal [facility] Phosphate SerPl-mCncon 07-30 Phosphate [Mass/Vol] 2.4 mg/dL Low 2.7-4.8 [facility] Comment on above: Order Comment: Speci men Type: BLOOD SPECIMENOrdering Facility: [facility] Address: [address] [place] [address] Performed By: #### 2 777-1, 78086-5, ####[facility]ATORYCLIA [id number] [address] Prot CSF-mCncon 07-30-2021 Protein (CSF) [Mass/Vol] 50 mg/dL High 15-45 [facility] Comment on above: Order Comment: Speci men Type: CEREBROSPINAL FLUIDOrdering Facility: [facility] Address: [address] [place] [address] Performed By: #### 2 342-4, 2880-3 ####[facility]ORYCLIA [id number] [address] [place] aPTT PPPon 07-30-2021 aPTT Coag (PPP) [Time] 64.1 s High 23.0-32.4 [facility] Comment on above: Order Comment: Speci men Type: BLOOD SPECIMENOrdering Facility: [facility] Address: [address] [place] [address] Performed By: #### 1 4979-9 ####[facility]ORYCLIA [id number] [address] [place] Bacteria CSF Culton 07-30-19 22 Bacteria identified Cx Nom (CSF) CULTURE, CSF: No growth 14 days GRAM STAIN: No cells or organisms seen Gram stain performed on cytospun specimen. Gram stain confirmed by microbiology Normal [facility] Comment on above: Performed By: #### 6 06-4 ####[facility]ORYCLIA [id number] [address] [place] CASE MANAGEMon 07-29-2021 CASE MANAGEM Normal [facility] CBC W Auto Differential pane l (Bld)on 07-29-2021 Basophils (Bld) [#/Vol] 0.03 10*3/uL Normal <0.11 [facility] Comment on above: Order Comment: Speci men Type: BLOOD SPECIMENOrdering Facility: [facility] Address: [address] [place] [address] Performed By: #### 5 7021-8 ####[facility]ATORYCLIA [id number] [address] [place] Basophils/100 WBC (Bld) 0.3 % Normal [facility] Comment on above: Order Comment: Speci men Type: BLOOD SPECIMENOrdering Facility: [facility] Address: [address] [place] [address] Performed By: #### 5 7021-8 ####[facility]ATORYCLIA [id number] [address] [place] Differential cell count method Nom (Bld) Auto Normal [facility] Comment on above: Order Comment: Speci men Type: BLOOD SPECIMENOrdering Facility: [facility] Address: [address] [place] [address] Performed By: #### 5 7021-8 ####[facility]ATORYCLIA [id number] [place] [address] [place] Eosinophils (Bld) [#/Vol] 0.40 10*3/uL Normal <0.46 [facility] Comment on above: Order Comment: Speci men Type: BLOOD SPECIMENOrdering Facility: [facility] Address: [address] [place] [address] Performed By: #### 5 7021-8 ####[facility]ATORYCLIA [id number] [address] [place] Eosinophils/100 WBC (Bld) 3.9 % Normal [facility] Comment on above: Order Comment: Speci men Type: BLOOD SPECIMENOrdering Facility: [facility] Address: [address] [place] [address] Performed By: #### 5 7021-8 ####[facility]ATORYCLIA [id number] [address] Erythrocyte distribution width (RBC) [Ratio] 17.1 % High 11.5-15.0 [facility] Comment on above: Order Comment: Speci men Type: BLOOD SPECIMENOrdering Facility: [facility] Address: [address] [place] [address] Performed By: #### 5 7021-8 ####[facility]ATORYCLIA [id number] [address] Hematocrit (Bld) [Volume fraction] 32.0 % Low 39.0-51.0 [facility] Comment on above: Order Comment: Speci men Type: BLOOD SPECIMENOrdering Facility: [facility] Address: [address] [place] [address] Performed By: #### 5 7021-8 ####[facility]ATORYCLIA [id number] [address] [place] Hemoglobin (Bld) [Mass/Vol] 9.7 g/dL Low 13.0-17.0 [facility] Comment on above: Order Comment: Speci men Type: BLOOD SPECIMENOrdering Facility: [facility] Address: [address] [place] [address] Performed By: #### 5 7021-8 ####[facility]ATORYCLIA [id number] [address] IMMATURE GRAN % 0.6 % Normal [facility] Comment on above: Order Comment: Speci men Type: BLOOD SPECIMENOrdering Facility: [facility] Address: [address] [place] [address] Performed By: #### 5 7021-8 ####[facility]ORYCLIA [id number] [address] IMMATURE GRAN ABS 0.06 k/uL Normal <0.10 [facility] Comment on above: Order Comment: Speci men Type: BLOOD SPECIMENOrdering Facility: [facility] Address: [address] [place] [address] Performed By: #### 5 7021-8 ####[facility]ATORYCLIA [id number] [address] Lymphocytes (Bld) [#/Vol] 1.96 10*3/uL Normal 1.00-4.00 [facility] Comment on above: Order Comment: Speci men Type: BLOOD SPECIMENOrdering Facility: [facility] Address: [address] [place] [address] Performed By: #### 5 7021-8 ####[facility]ATORYCLIA [id number] [address] Lymphocytes/100 WBC (Bld) 19.0 % Normal [facility] Comment on above: Order Comment: Speci men Type: BLOOD SPECIMENOrdering Facility: [facility] Address: [address] [place] [address] Performed By: #### 5 7021-8 ####[facility]ATORYCLIA [id number] [address] [place] [facility] MCH (RBC) [Entitic mass] 28.0 pg Normal 26.0-34.0 [facility] Comment on above: Order Comment: Speci men Type: BLOOD SPECIMENOrdering Facility: [facility] Address: [address] [place] [address] Performed By: #### 5 7021-8 ####[facility]ATORYCLIA [id number] [address] STATES OF [facility] MCHC (RBC) [Mass/Vol] 30.3 g/dL Low 30.5-36.0 [facility] Comment on above: Order Comment: Speci men Type: BLOOD SPECIMENOrdering Facility: [facility] Address: [address] [place] [address] Performed By: #### 5 7021-8 ####[facility]ATORYCLIA [id number] [address] MCV (RBC) [Entitic vol] 92.5 fL Normal 80.0-100.0 [facility] Comment on above: Order Comment: Speci men Type: BLOOD SPECIMENOrdering Facility: [facility] Address: [address] [place] [address] Performed By: #### 5 7021-8 ####[facility]ATORYCLIA [id number] [address] [place] Monocytes (Bld) [#/Vol] 0.53 10*3/uL Normal <0.87 [facility] Comment on above: Order Comment: Speci men Type: BLOOD SPECIMENOrdering Facility: [facility] Address: [address] [place] [address] Performed By: #### 5 7021-8 ####[facility]ATORYCLIA [id number] [address] Monocytes/100 WBC (Bld) 5.2 % Normal [facility] Comment on above: Order Comment: Speci men Type: BLOOD SPECIMENOrdering Facility: [facility] Address: [address] [place] [address] Performed By: #### 5 7021-8 ####[facility]ATORYCLIA [id number] [address] [place] Neutrophils (Bld) [#/Vol] 7.31 10*3/uL Normal 1.45-7.50 [facility] Comment on above: Order Comment: Speci men Type: BLOOD SPECIMENOrdering Facility: [facility] Address: [address] [place] [address] Performed By: #### 5 7021-8 ####[facility]ATORYCLIA [id number] [address] Neutrophils/100 WBC (Bld) 71.0 % Normal [facility] Comment on above: Order Comment: Speci men Type: BLOOD SPECIMENOrdering Facility: [facility] Address: [address] [place] [address] Performed By: #### 5 7021-8 ####[facility]ATORYCLIA [id number] [address] Nucleated RBC (Bld) [#/Vol] 10*3/uL Normal <0.01 [facility] Comment on above: Order Comment: Speci men Type: BLOOD SPECIMENOrdering Facility: [facility] Address: [address] [place] [address] Performed By: #### 5 7021-8 ####[facility]ATORYCLIA [id number] [address] Nucleated RBC/100 WBC (Bld) [Ratio] 0.0 /100 WBC Normal [facility] Comment on above: Order Comment: Speci men Type: BLOOD SPECIMENOrdering Facility: [facility] Address: [address] [place] [address] Performed By: #### 5 7021-8 ####[facility]ATORYCLIA [id number] [address] Platelet mean volume (Bld) [Entitic vol] 11.2 fL Normal 9.0-12.7 [facility] Comment on above: Order Comment: Speci men Type: BLOOD SPECIMENOrdering Facility: [facility] Address: [address] [place] [address] Performed By: #### 5 7021-8 ####[facility]ATORYCLIA [id number] [address] [place] Platelets (Bld) [#/Vol] 276 10*3/uL Normal 150-400 [facility] Comment on above: Order Comment: Speci men Type: BLOOD SPECIMENOrdering Facility: [facility] Address: [address] [place] [address] Performed By: #### 5 7021-8 ####[facility]ATORYCLIA [id number] [address] RBC (Bld) [#/Vol] 3.46 10*6/uL Low 4.20-6.00 [facility] Comment on above: Order Comment: Speci men Type: BLOOD SPECIMENOrdering Facility: [facility] Address: [address] [place] [address] Performed By: #### 5 7021-8 ####[facility]ATORYCLIA [id number] [address] WBC (Bld) [#/Vol] 10.29 10*3/uL Normal 3.70-11.00 [facility] Comment on above: Order Comment: Speci men Type: BLOOD SPECIMENOrdering Facility: [facility] Address: [address] [place] [address] Performed By: #### 5 7021-8 ####[facility]ATORYCLIA [id number] [address] NURSING PROGon 07-29-2021 NURSING PROG Normal [facility] THERAPY NTon 07-29-2021 THERAPY NT Normal [facility] aPTT PPPon 07-29-2021 aPTT Coag (PPP) [Time] 59.2 s High 23.0-32.4 [facility] Comment on above: Order Comment: Speci men Type: BLOOD SPECIMENOrdering Facility: [facility] Address: [address] [place] [address] Performed By: #### 1 4979-9 ####[facility]ATORYCLIA [id number] [address] [place] ALLIED HEALTHon 07-28-2021 ALLIED HEALTH Normal [facility] Basic metabolic 2000 panelon 07-28-2021 Anion gap [Moles/Vol] 7 mmol/L Low 9-18 [facility] Comment on above: Order Comment: Speci men Type: BLOOD SPECIMENOrdering Facility: [facility] Address: [address] [place] [address] Performed By: #### 1 4338-8, 64187-5, 2777-1, 76048-2 ####[facility]ATORYCLIA [id number] [place] [address] [place] Calcium [Mass/Vol] 9.0 mg/dL Normal 8.5-10.2 [facility] Comment on above: Order Comment: Speci men Type: BLOOD SPECIMENOrdering Facility: [facility] Address: [address] [place] [address] Performed By: #### 1 4338-8, 81584-5, 2777-1, 85360-3 ####[facility]ATORYCLIA [id number] [place] [address] [place] Chloride [Moles/Vol] 94 mmol/L Low 97-105 [facility] Comment on above: Order Comment: Speci men Type: BLOOD SPECIMENOrdering Facility: [facility] Address: [address] [place] [address] Performed By: #### 1 4338-8, 52253-0, 2777-1, 41871-3 ####[facility]ATORYCLIA [id number] [place] [address] [place] CO2 [Moles/Vol] 31 mmol/L High 22-30 [facility] Comment on above: Order Comment: Speci men Type: BLOOD SPECIMENOrdering Facility: [facility] Address: [address] [place] [address] Performed By: #### 1 4338-8, 26940-3, 7-1, 34740-8 ####[facility]ATORYCLIA [id number] [place] [address] [place] Creatinine [Mass/Vol] 0.75 mg/dL Normal 0.73-1.22 [facility] Comment on above: Order Comment: Shira francia Type: BLOOD SPECIMENOrdering Facility: [facility] Address: [address] [id number] Performed By: #### 1 4338-8, 31998-5, 2777-1, 28614-8 ####[facility]ATORYCLIA [id number] [address] [place] ESTIMATED GLOMERULAR FILTRATION RATE 98 mL/min/1.73m??? Normal >=60 [facility] Comment on above: Order Comment: Shira feldman Type: BLOOD SPECIMENOrdering Facility: [facility] Address: [address] Result Comment: Luzmaria mated Glomerular Filtration [...] actual GFR. Performed By: #### 1 4338-8, 82146-4, 2777-1, 46646-8 ####[facility]ATORYCLIA [id number] [place] [address] [place] Glucose [Mass/Vol] 122 mg/dL High 74-99 [facility] Comment on above: Order Comment: Shira feldman Type: BLOOD SPECIMENOrdering Facility: [facility] Address: [address] [place] [address] Result Comment: The [place] Diabetes Association (ADA) provides guidance for cutoff [...] Standards of Medical Care in Diabetes 2016, [place] [employer]. Diabetes Care. 2016.39(Suppl 1). Performed By: #### 1 4338-8, 75100-9, 2777-, 14789-3 ####[facility]ATORYCLIA [id number] [place] [address] [place] Potassium [Moles/Vol] 4.0 mmol/L Normal 3.7-5.1 [facility] Comment on above: Order Comment: Speci men Type: BLOOD SPECIMENOrdering Facility: [facility] Address: [address] [place] [address] Performed By: #### 1 4338-8, 59003-2, 277-, 70282-9 ####[facility]ATORYCLIA [id number] [address] [place] Sodium [Moles/Vol] 132 mmol/L Low 136-144 [facility] Comment on above: Order Comment: Speci men Type: BLOOD SPECIMENOrdering Facility: [facility] Address: [address] [place] [address] Performed By: #### 1 4338-8, 57536-0, 2776-05, 22671-0 ####[facility]ATORYCLIA [id number] [address] STATES [facility] Urea nitrogen [Mass/Vol] 34 mg/dL High 01-28 [facility] Comment on above: Order Comment: Speci men Type: BLOOD SPECIMENOrdering Facility: [facility] Address: [address] [place] [address] Performed By: #### 1 4338-8, 56724-5, 277-, 80233-8 ####[facility]ATORYCLIA [id number] [place] [address] [place] CBC W Auto Differential pane l (Bld)on 07-28-2021 Basophils (Bld) [#/Vol] 0.04 10*3/uL Normal <0.11 [facility] Comment on above: Order Comment: Speci men Type: BLOOD SPECIMENOrdering Facility: [facility] Address: [address] [address] Performed By: #### 5 7021-8 ####[facility]ORATORYCLIA [id number] [address] Basophils/100 WBC (Bld) 0.5 % Normal [facility] Comment on above: Order Comment: Speci men Type: BLOOD SPECIMENOrdering Facility: [facility] Address: [address] [place] [address] Performed By: #### 5 7021-8 ####[facility]ATORYCLIA [id number] [address] Differential cell count method Nom (Bld) Auto Normal [facility] Comment on above: Order Comment: Speci men Type: BLOOD SPECIMENOrdering Facility: [facility] Address: [address] [place] [address] Performed By: #### 5 7021-8 ####[facility]ORATORYCLIA [id number] [address] [place] Eosinophils (Bld) [#/Vol] 0.30 10*3/uL Normal <0.46 [facility] Comment on above: Order Comment: Speci men Type: BLOOD SPECIMENOrdering Facility: [facility] Address: [address] [place] [address] Performed By: #### 5 7021-8 ####[facility]ORATORYCLIA [id number] [address] Eosinophils/100 WBC (Bld) 3.4 % Normal [facility] Comment on above: Order Comment: Speci men Type: BLOOD SPECIMENOrdering Facility: [facility] Address: [address] [place] [address] Performed By: #### 5 7021-8 ####[facility]ORATORYCLIA [id number] [address] [place] Erythrocyte distribution width (RBC) [Ratio] 16.9 % High 11.5-15.0 [facility] Comment on above: Order Comment: Speci men Type: BLOOD SPECIMENOrdering Facility: [facility] Address: [address] [place] [address] Performed By: #### 5 7021-8 ####[facility]ATORYCLIA [id number] [address] Hematocrit (Bld) [Volume fraction] 30.3 % Low 39.0-51.0 [facility] Comment on above: Order Comment: Speci men Type: BLOOD SPECIMENOrdering Facility: [facility] Address: [address] [place] [address] Performed By: #### 5 7021-8 ####[facility]ATORYCLIA [id number] [address] Hemoglobin (Bld) [Mass/Vol] 9.2 g/dL Low 13.0-17.0 [facility] Comment on above: Order Comment: Speci men Type: BLOOD SPECIMENOrdering Facility: [facility] Address: [address] [place] [address] Performed By: #### 5 7021-8 ####[facility]ATORYCLIA [id number] [address] IMMATURE GRAN % 0.6 % Normal [facility] Comment on above: Order Comment: Speci men Type: BLOOD SPECIMENOrdering Facility: [facility] Address: [address] [place] [address] Performed By: #### 5 7021-8 ####[facility]ATORYCLIA [id number] [address] IMMATURE GRAN ABS 0.05 k/uL Normal <0.10 [facility] Comment on above: Order Comment: Speci men Type: BLOOD SPECIMENOrdering Facility: [facility] Address: [address] [place] [address] Performed By: #### 5 7021-8 ####[facility]ORATORYCLIA [id number] [place] [address] [place] Lymphocytes (Bld) [#/Vol] 1.68 10*3/uL Normal 1.00-4.00 [facility] Comment on above: Order Comment: Speci men Type: BLOOD SPECIMENOrdering Facility: [facility] Address: [address] [place] [address] Performed By: #### 5 7021-8 ####[facility]ORATORYCLIA [id number] [address] Lymphocytes/100 WBC (Bld) 19.2 % Normal [facility] Comment on above: Order Comment: Speci men Type: BLOOD SPECIMENOrdering Facility: [facility] Address: [address] [place] [address] Performed By: #### 5 7021-8 ####[facility]ORATORYCLIA [id number] [address] [place] MCH (RBC) [Entitic mass] 28.4 pg Normal 26.0-34.0 [facility] Comment on above: Order Comment: Speci men Type: BLOOD SPECIMENOrdering Facility: [facility] Address: [address] [place] [address] Performed By: #### 5 7021-8 ####[facility]ORATORYCLIA [id number] [address] [place] MCHC (RBC) [Mass/Vol] 30.4 g/dL Low 30.5-36.0 [facility] Comment on above: Order Comment: Speci men Type: BLOOD SPECIMENOrdering Facility: [facility] Address: [address] [place] [address] Performed By: #### 5 7021-8 ####[facility]ATORYCLIA [id number] [address] MCV (RBC) [Entitic vol] 93.5 fL Normal 80.0-100.0 [facility] Comment on above: Order Comment: Speci men Type: BLOOD SPECIMENOrdering Facility: [facility] Address: [address] [place] [address] Performed By: #### 5 7021-8 ####[facility] LABORATORYCLIA [id number] [place] [address] [place] Monocytes (Bld) [#/Vol] 0.58 10*3/uL Normal <0.87 [facility] Comment on above: Order Comment: Speci men Type: BLOOD SPECIMENOrdering Facility: [facility] Address: [address] [place] [address] Performed By: #### 5 7021-8 ####[facility]ORATORYCLIA [id number] [address] [place] Monocytes/100 WBC (Bld) 6.6 % Normal [facility] Comment on above: Order Comment: Speci men Type: BLOOD SPECIMENOrdering Facility: [facility] Address: [address] [place] [address] Performed By: #### 5 7021-8 ####[facility]ORATORYCLIA [id number] [address] [place] Neutrophils (Bld) [#/Vol] 6.11 10*3/uL Normal 1.45-7.50 [facility] Comment on above: Order Comment: Speci men Type: BLOOD SPECIMENOrdering Facility: [facility] Address: [address] [place] [address] Performed By: #### 5 7021-8 ####[facility]ORATORYCLIA [id number] [address] [place] Neutrophils/100 WBC (Bld) 69.7 % Normal [facility] Comment on above: Order Comment: Speci men Type: BLOOD SPECIMENOrdering Facility: [facility] Address: [address] [place] [address] Performed By: #### 5 7021-8 ####[facility] LABORATORYCLIA [id number] [place] [address] [place] Nucleated RBC (Bld) [#/Vol] 10*3/uL Normal <0.01 [facility] Comment on above: Order Comment: Speci men Type: BLOOD SPECIMENOrdering Facility: [facility] Address: [address] [place] [address] Performed By: #### 5 7021-8 ####[facility]ATORYCLIA [id number] [address] [place] Nucleated RBC/100 WBC (Bld) [Ratio] 0.0 /100 WBC Normal [facility] Comment on above: Order Comment: Speci men Type: BLOOD SPECIMENOrdering Facility: [facility] Address: [address] [place] [address] Performed By: #### 5 7021-8 ####[facility]ORATORYCLIA [id number] [place] [address] [place] Platelet mean volume (Bld) [Entitic vol] 11.3 fL Normal 9.0-12.7 [facility] Comment on above: Order Comment: Speci men Type: BLOOD SPECIMENOrdering Facility: [facility] Address: [address] [place] [address] Performed By: #### 5 7021-8 ####[facility]ORATORYCLIA [id number] [place] [address] [place] Platelets (Bld) [#/Vol] 238 10*3/uL Normal 150-400 [facility] Comment on above: Order Comment: Speci men Type: BLOOD SPECIMENOrdering Facility: [facility] Address: [address] [place] [address] Performed By: #### 5 7021-8 ####[facility]ATORYCLIA [id number] [place] [address] [place] RBC (Bld) [#/Vol] 3.24 10*6/uL Low 4.20-6.00 [facility] Comment on above: Order Comment: Speci men Type: BLOOD SPECIMENOrdering Facility: [facility] Address: [address] [place] [address] Performed By: #### 5 7021-8 ####[facility]ATORYCLIA [id number] [address] [place] WBC (Bld) [#/Vol] 8.76 10*3/uL Normal 3.70-11.00 [facility] Comment on above: Order Comment: Speci men Type: BLOOD SPECIMENOrdering Facility: [facility] Address: [address] [place] [address] Performed By: #### 5 7021-8 ####[facility]ATORYCLIA [id number] [address] [place] MRI BRAIN WO/W IVCONon 07-28 MRI BRAIN WO/W IVCON Normal [facility] Magnesium SerPl-mCncon 07-28 Magnesium [Mass/Vol] 2.5 mg/dL High 1.7-2.3 [facility] Comment on above: Order Comment: Speci men Type: BLOOD SPECIMENOrdering Facility: [facility] Address: [address] [place] [address] Performed By: #### 1 4338-8, 30696-7, 2777-1, 40296-1 ####[facility]ATORYCLIA [id number] [address] STATES OF [facility] NURSING PROGon 07-28-2021 NURSING PROG Normal [facility] NURSING PROG Normal [facility] Phosphate SerPl-mCncon 07-28 Phosphate [Mass/Vol] 2.8 mg/dL Normal 2.7-4.8 [facility] Comment on above: Order Comment: Speci men Type: BLOOD SPECIMENOrdering Facility: [facility] Address: [address] [place] [address] Performed By: #### 1 4338-8, 36197-5, 2777-1, 08854-9 ####[facility]ATORYCLIA [id number] [address] [place] Prealbumin [Mass/Vol]on 07-06 Prealbumin Nephelometry [Mass/Vol] 25 mg/dL Normal 17-36 [facility] Comment on above: Order Comment: Speci men Type: BLOOD SPECIMENOrdering Facility: [facility] Address: [address] [place] [address] Performed By: #### 1 4338-8, 20752-6, 2777-1, 70879-4 ####[facility]ITAL[facility] [id number] [address] [place] aPTT PPPon 07-28-2021 aPTT Coag (PPP) [Time] 53.0 s High 23.0-32.4 [facility] Comment on above: Order Comment: Speci men Type: BLOOD SPECIMENOrdering Facility: [facility] Address: [address] [place] [address] Performed By: #### 1 4979-9 ####[facility]PITALCLIA [id number] [address] aPTT Coag (PPP) [Time] 57.2 s High 23.0-32.4 [facility] Comment on above: Order Comment: Speci men Type: BLOOD SPECIMENOrdering Facility: [facility] Address: [address] [place] [address] Performed By: #### 1 4979-9 ####[facility]PITALCLIA [id number] [address] Bacteria CSF Culton 07-28-19 Bacteria identified Cx Nom (CSF) CULTURE, CSF: No growth 14 days GRAM STAIN: No organisms seen Rare Polymorphonuclear leukocytes Rare Red Blood Cells Gram stain performed on cytospun specimen. Normal [facility] Comment on above: Performed By: #### 6 06-4 ####[facility]ORYCLIA [id number] [address] Bacteria Spec Resp Culton Bacteria identified Respiratory culture Nom (Unsp spec) CULTURE, RESPIRATORY: Rare Normal respiratory chris present GRAM STAIN: No organisms seen Rare Polymorphonuclear leukocytes Rare Epithelial cells Normal [facility] Comment on above: Performed By: #### 3 2355-0 ####[facility]ORYCLIA [id number] [address] CASE MANAGEMon 07-27-2021 CASE MANAGEM Normal [facility] CBC W Auto Differential pane l (Bld)on 07-27-2021 Basophils (Bld) [#/Vol] 0.04 10*3/uL Normal <0.11 [facility] Comment on above: Order Comment: Speci men Type: BLOOD SPECIMENOrdering Facility: [facility] Address: [address] [place] [address] Performed By: #### 5 7021-8 ####[facility]ATORYCLIA [id number] [address] Basophils/100 WBC (Bld) 0.4 % Normal [facility] Comment on above: Order Comment: Speci men Type: BLOOD SPECIMENOrdering Facility: [facility] Address: [address] [place] [address] Performed By: #### 5 7021-8 ####[facility]ORYCLIA [id number] [address] Differential cell count method Nom (Bld) Auto Normal [facility] Comment on above: Order Comment: Speci men Type: BLOOD SPECIMENOrdering Facility: [facility] Address: [address] [place] [address] Performed By: #### 5 7021-8 ####[facility]ATORYCLIA [id number] [address] [place] Eosinophils (Bld) [#/Vol] 0.50 10*3/uL High <0.46 [facility] Comment on above: Order Comment: Speci men Type: BLOOD SPECIMENOrdering Facility: [facility] Address: [address] [place] [address] Performed By: #### 5 7021-8 ####[facility]ATORYCLIA [id number] [address] Eosinophils/100 WBC (Bld) 5.2 % Normal [facility] Comment on above: Order Comment: Speci men Type: BLOOD SPECIMENOrdering Facility: [facility] Address: [address] [place] [address] Performed By: #### 5 7021-8 ####[facility]ATORYCLIA [id number] [address] Erythrocyte distribution width (RBC) [Ratio] 16.8 % High 11.5-15.0 [facility] Comment on above: Order Comment: Speci men Type: BLOOD SPECIMENOrdering Facility: [facility] Address: [address] [place] [address] Performed By: #### 5 7021-8 ####[facility]ATORYCLIA [id number] [address] Hematocrit (Bld) [Volume fraction] 29.8 % Low 39.0-51.0 [facility] Comment on above: Order Comment: Speci men Type: BLOOD SPECIMENOrdering Facility: [facility] Address: [address] [place] [address] Performed By: #### 5 7021-8 ####[facility]ORYCLIA [id number] [address] Hemoglobin (Bld) [Mass/Vol] 9.0 g/dL Low 13.0-17.0 [facility] Comment on above: Order Comment: Speci men Type: BLOOD SPECIMENOrdering Facility: [facility] Address: [address] [place] [address] Performed By: #### 5 7021-8 ####[facility]ORYCLIA [id number] [address] IMMATURE GRAN % 0.6 % Normal [facility] Comment on above: Order Comment: Speci men Type: BLOOD SPECIMENOrdering Facility: [facility] Address: [address] [place] [address] Performed By: #### 5 7021-8 ####[facility]ORYCLIA [id number] [address] IMMATURE GRAN ABS 0.06 k/uL Normal <0.10 [facility] Comment on above: Order Comment: Speci men Type: BLOOD SPECIMENOrdering Facility: [facility] Address: [address] [place] [address] Performed By: #### 5 7021-8 ####[facility]ATORYCLIA [id number] [address] OF [facility] Lymphocytes (Bld) [#/Vol] 1.73 10*3/uL Normal 1.00-4.00 [facility] Comment on above: Order Comment: Speci men Type: BLOOD SPECIMENOrdering Facility: [facility] Address: [address] [place] [address] Performed By: #### 5 7021-8 ####[facility]ATORYCLIA [id number] [address] Lymphocytes/100 WBC (Bld) 17.9 % Normal [facility] Comment on above: Order Comment: Speci men Type: BLOOD SPECIMENOrdering Facility: [facility] Address: [address] [place] [address] Performed By: #### 5 7021-8 ####[facility]ATORYCLIA [id number] [address] [place] MCH (RBC) [Entitic mass] 28.1 pg Normal 26.0-34.0 [facility] Comment on above: Order Comment: Speci men Type: BLOOD SPECIMENOrdering Facility: [facility] Address: [address] [place] [address] Performed By: #### 5 7021-8 ####[facility]ATORYCLIA [id number] [address] [place] MCHC (RBC) [Mass/Vol] 30.2 g/dL Low 30.5-36.0 [facility] Comment on above: Order Comment: Speci men Type: BLOOD SPECIMENOrdering Facility: [facility] Address: [address] [place] [address] Performed By: #### 5 7021-8 ####[facility]ATORYCLIA [id number] [address] [place] MCV (RBC) [Entitic vol] 93.1 fL Normal 80.0-100.0 [facility] Comment on above: Order Comment: Speci men Type: BLOOD SPECIMENOrdering Facility: [facility] Address: [address] [place] [address] Performed By: #### 5 7021-8 ####[facility]ATORYCLIA [id number] [place] [address] [place] Monocytes (Bld) [#/Vol] 0.59 10*3/uL Normal <0.87 [facility] Comment on above: Order Comment: Speci men Type: BLOOD SPECIMENOrdering Facility: [facility] Address: [address] [place] [address] Performed By: #### 5 7021-8 ####[facility]ATORYCLIA [id number] [address] [place] Monocytes/100 WBC (Bld) 6.1 % Normal [facility] Comment on above: Order Comment: Speci men Type: BLOOD SPECIMENOrdering Facility: [facility] Address: [address] [place] [address] Performed By: #### 5 7021-8 ####[facility]ATORYCLIA [id number] [address] [place] Neutrophils (Bld) [#/Vol] 6.75 10*3/uL Normal 1.45-7.50 [facility] Comment on above: Order Comment: Speci men Type: BLOOD SPECIMENOrdering Facility: [facility] Address: [address] [address] Performed By: #### 5 7021-8 ####[facility]ATORYCLIA [id number] [address] [place] Neutrophils/100 WBC (Bld) 69.8 % Normal [facility] Comment on above: Order Comment: Speci men Type: BLOOD SPECIMENOrdering Facility: [facility] Address: [address] [place] [address] Performed By: #### 5 7021-8 ####[facility]ATORYCLIA [id number] [address] Nucleated RBC (Bld) [#/Vol] 10*3/uL Normal <0.01 [facility] Comment on above: Order Comment: Speci men Type: BLOOD SPECIMENOrdering Facility: [facility] Address: [address] [place] [address] Performed By: #### 5 7021-8 ####[facility]ATORYCLIA [id number] [address] [place] Nucleated RBC/100 WBC (Bld) [Ratio] 0.0 /100 WBC Normal [facility] Comment on above: Order Comment: Speci men Type: BLOOD SPECIMENOrdering Facility: [facility] Address: [address] [place] [address] Performed By: #### 5 7021-8 ####[facility]ATORYCLIA [id number] [address] Platelet mean volume (Bld) [Entitic vol] 11.3 fL Normal 9.0-12.7 [facility] Comment on above: Order Comment: Speci men Type: BLOOD SPECIMENOrdering Facility: [facility] Address: [address] [place] [address] Performed By: #### 5 7021-8 ####[facility]ATORYCLIA [id number] [address] [place] Platelets (Bld) [#/Vol] 227 10*3/uL Normal 150-400 [facility] Comment on above: Order Comment: Speci men Type: BLOOD SPECIMENOrdering Facility: [facility] Address: [address] [place] [address] Performed By: #### 5 7021-8 ####[facility]ATORYCLIA [id number] [address] [place] RBC (Bld) [#/Vol] 3.20 10*6/uL Low 4.20-6.00 [facility] Comment on above: Order Comment: Speci men Type: BLOOD SPECIMENOrdering Facility: [facility] Address: [address] [place] [address] Performed By: #### 5 7021-8 ####[facility]ATORYCLIA [id number] [place] [address] [place] WBC (Bld) [#/Vol] 9.67 10*3/uL Normal 3.70-11.00 [facility] Comment on above: Order Comment: Speci men Type: BLOOD SPECIMENOrdering Facility: [facility] Address: [address] [place] [address] Performed By: #### 5 7021-8 ####[facility]ATORYCLIA [id number] [address] OF [facility] CONSULT PROGon 07-27-2021 CONSULT PROG Normal [facility] CSF MANUAL DIFFon 07-27-2021 DIF TTL, CSF 100 cells counted Normal [facility] Comment on above: Order Comment: Speci men Type: CEREBROSPINAL FLUIDOrdering Facility: [facility] Address: [address] [place] [address] Performed By: #### L [id number], 24725-0, [id number] ####[facility]ATORYCLIA [id number] [place] [address] [place] LYMPH%, CSF 75 % Normal 50-90 [facility] Comment on above: Order Comment: Speci men Type: CEREBROSPINAL FLUIDOrdering Facility: [facility] Address: [address] [place] [address] Performed By: #### L MC4294, 50014-6, [id number] ####[facility]ATORYCLIA [id number] [place] [address] [place] MONO%, CSF 22 % Normal 10-50 [facility] Comment on above: Order Comment: Speci men Type: CEREBROSPINAL FLUIDOrdering Facility: [facility] Address: [address] [place] [address] Performed By: #### L EW4156, 63867-5, [id number] ####[facility]ATORYCLIA [id number] [place] [address] [place] NEUT%, CSF 2 % Normal 0-3 [facility] Comment on above: Order Comment: Speci men Type: CEREBROSPINAL FLUIDOrdering Facility: [facility] Address: [address] [place] [address] Performed By: #### L RP2332, 16353-3, [id number] ####[facility]ATORYCLIA [id number] [address] [place] OTHER CL%, CSF 1 % Normal [facility] Comment on above: Order Comment: Speci men Type: CEREBROSPINAL FLUIDOrdering Facility: [facility] Address: [address] [place] [address] Result Comment: Path ologist review of microscopy results to follow Performed By: #### L ZV0666, 03690-1, [id number] ####[facility]ATORYCLIA [id number] [address] CSF PATHOLOGIST INTERP (LAB REFLEX ORDER-NO BILL)on 07-27-2021 CSF STAFF REVIEW Negative Normal [facility] Comment on above: Order Comment: Speci men Type: CEREBROSPINAL FLUIDOrdering Facility: [facility] Address: [address] [place] [address] Performed By: #### L XU6996, 31283-3, [id number] ####[facility]ORATORYCLIA [id number] [address] Pathologist name Reviewed by Amador Stevens MD [facility] Comment on above: Order Comment: Speci men Type: CEREBROSPINAL FLUIDOrdering Facility: [facility] Address: [address] [place] [address] Performed By: #### L RT1513, 33383-7, [id number] ####[facility]ATORYCLIA [id number] [address] Cell count panel (CSF)on Clarity (CSF) Clear Normal Clear [facility] Comment on above: Order Comment: Speci men Type: CEREBROSPINAL FLUIDOrdering Facility: [facility] Address: [address] [address] Performed By: #### L AZ3135, 08347-1, [id number] ####[facility]ATORYCLIA [id number] [address] Clarity (Unsp spec) Not Indicated Normal Clear [facility] Comment on above: Order Comment: Speci men Type: CEREBROSPINAL FLUIDOrdering Facility: [facility] Address: [address] [place] [address] Performed By: #### L VD7495, 75798-5, [id number] ####[facility]ATORYCLIA [id number] [address] Color (CSF) Colorless Normal Colorless [facility] Comment on above: Order Comment: Speci men Type: CEREBROSPINAL FLUIDOrdering Facility: [facility] Address: [address] [address] Performed By: #### L WK0116, 13045-2, [id number] ####[facility]ORYCLIA [id number] [address] Color (Spun CSF) Not Indicated Normal Colorless [facility] Comment on above: Order Comment: Speci men Type: CEREBROSPINAL FLUIDOrdering Facility: [facility] Address: [address] [address] Performed By: #### L LX9623, 67494-7, [id number] ####[facility]ORYCLIA [id number] [address] CSF TUBE NUMBER [employer] Normal [facility] Comment on above: Order Comment: Speci men Type: CEREBROSPINAL FLUIDOrdering Facility: [facility] Address: [address] [address] Performed By: #### L NC2997, 72571-6, ZAK0833 ####[facility]ORYCLIA [id number] [address] RBC Manual cnt (CSF) [#/Vol] 39 cells/uL High 0-5 [facility] Comment on above: Order Comment: Speci men Type: CEREBROSPINAL FLUIDOrdering Facility: [facility] Address: [address] [place] [address] Performed By: #### L FH8424, 52793-4, [id number] ####[facility]ORYCLIA [id number] [address] WBC Manual cnt (CSF) [#/Vol] 14 cells/uL High 0-5 [facility] Comment on above: Order Comment: Speci men Type: CEREBROSPINAL FLUIDOrdering Facility: [facility] Address: [address] [place] [address] Performed By: #### L LK4852, 15882-4, [id number] ####[facility]ORYCLIA [id number] [address] Glucose CSF-[facility] Glucose (CSF) [Mass/Vol] 64 mg/dL Normal 40-70 [facility] Comment on above: Order Comment: Speci men Type: CEREBROSPINAL FLUIDOrdering Facility: [facility] Address: [address] [place] [address] Result Comment: Lumb ar CSF glucose values of healthy patients are approximately 60% of the plasma values and must always be compared with a concurrently measured plasma value for adequate clinical interpretation.References: 1. Glucose HK (GLUC3) [package insert V 12.0 [place]]. [employer], [place], [place]. September 2015. 2. Teresa HGarfield, Loki, H. (2015). Chapter 7: Glucose and Lactate. Marianela Alcocer al.(eds.), Cerebrospinal Fluid in Clinical Neurology. [place]: [employer]. Performed By: #### 2 342-4, 2880-3 ####[facility]ORYCLIA [id number] [address] [place] NUTRITIONon 07-27-2021 NUTRITION Normal [facility] Prot CSF-mCncon 07-27-2021 Protein (CSF) [Mass/Vol] 58 mg/dL High 15-45 [facility] Comment on above: Order Comment: Speci men Type: CEREBROSPINAL FLUIDOrdering Facility: [facility] Address: [address] [place] [address] Performed By: #### 2 342-4, 2880-3 ####[facility]ORYCLIA [id number] [address] aPTT PPPon 07-27-2021 aPTT Coag (PPP) [Time] 68.4 s High 23.0-32.4 [facility] Comment on above: Order Comment: Speci men Type: BLOOD SPECIMENOrdering Facility: [facility] Address: [address] [place] [address] Performed By: #### 1 4979-9 ####[facility]ORYCLIA [id number] [address] aPTT Coag (PPP) [Time] 51.3 s High 23.0-32.4 [facility] Comment on above: Order Comment: Speci men Type: BLOOD SPECIMENOrdering Facility: [facility] Address: [address] [place] [address] Performed By: #### 1 4979-9 ####[facility]ATORYCLIA [id number] [address] ALLIED HEALTHon 07-26-2021 ALLIED HEALTH HNO ID: [id number] Author: Stephanie Maldonado, mat tester Service: Radiology Author Type: Polysomnographic Technician Type: Allied Health Filed: 07/26/2021 4:10 PM Note Text: Spoke with nurse. Pt getting new EVD today. Try tomorrow. Normal [facility] Bacteria CSF Culton 07-27-19 Bacteria identified Cx Nom (CSF) Abnormal [facility] Comment on above: Performed By: #### 6 06-4 ####[facility]ATORYCLIA [id number] [address] Basic metabolic 2000 panelon 07-26-2021 Anion gap [Moles/Vol] 6 mmol/L Low 9-18 [facility] Comment on above: Order Comment: Speci men Type: BLOOD SPECIMENOrdering Facility: [facility] Address: [address] [place] [address] Performed By: #### 2 4321-2 ####[facility] LABORATORYCLIA [id number] [place] [address] [place] Calcium [Mass/Vol] 9.2 mg/dL Normal 8.5-10.2 [facility] Comment on above: Order Comment: Speci men Type: BLOOD SPECIMENOrdering Facility: [facility] Address: [address] [place] [address] Performed By: #### 2 4321-2 ####[facility]ORATORYCLIA [id number] [place] [address] [place] Chloride [Moles/Vol] 99 mmol/L Normal 97-105 [facility] Comment on above: Order Comment: Speci men Type: BLOOD SPECIMENOrdering Facility: [facility] Address: [address] [place] [address] Performed By: #### 2 4321-2 ####[facility]ORATORYCLIA [id number] [place] [address] [place] CO2 [Moles/Vol] 32 mmol/L High 22-30 [facility] Comment on above: Order Comment: Speci men Type: BLOOD SPECIMENOrdering Facility: [facility] Address: [address] [place] [address] Performed By: #### 2 4321-2 ####[facility]ORATORYCLIA [id number] [place] [address] [place] Creatinine [Mass/Vol] 0.74 mg/dL Normal 0.73-1.22 [facility] Comment on above: Order Comment: Speci men Type: BLOOD SPECIMENOrdering Facility: [facility] Address: [address] [place] [address] Performed By: #### 2 4321-2 ####[facility]ORATORYCLIA [id number] [place] [address] [place] ESTIMATED GLOMERULAR FILTRATION RATE 98 mL/min/1.73m??? Normal >=60 [facility] Comment on above: Order Comment: Shira feldman Type: BLOOD SPECIMENOrdering Facility: [facility] Address: [address] [place] [address] Result Comment: Luzmaria mated Glomerular Filtration Rate [...] actual GFR. Performed By: #### 2 4321-2 ####[facility] HOSPITALIA [id number] [place] [address] [place] Glucose [Mass/Vol] 126 mg/dL High 74-99 [facility] Comment on above: Order Comment: Shira feldman Type: BLOOD SPECIMENOrdering Facility: [facility] Address: [address] [place] [address] Result Comment: The [place] Diabetes Association (ADA) provides guidance for cutoff [...] Standards of Medical Care in Diabetes 2016, [place] [employer]. Diabetes Care. 2016.39(Suppl 1). Performed By: #### 2 4321-2 ####[facility]ORATORYCLIA [id number] [place] [id number] [place] Potassium [Moles/Vol] 4.2 mmol/L Normal 3.7-5.1 [facility] Comment on above: Order Comment: Speci men Type: BLOOD SPECIMENOrdering Facility: [facility] Address: [address] [place] [address] Performed By: #### 2 4321-2 ####[facility]ORATORYCLIA [id number] [address] STATES OF [facility] Sodium [Moles/Vol] 137 mmol/L Normal 136-144 [facility] Comment on above: Order Comment: Speci men Type: BLOOD SPECIMENOrdering Facility: [facility] Address: [address] [place] [address] Performed By: #### 2 4321-2 ####[facility]ORATORYCLIA [id number] [address] STATES OF [facility] Urea nitrogen [Mass/Vol] 36 mg/dL High 9-24 [facility] Comment on above: Order Comment: Speci men Type: BLOOD SPECIMENOrdering Facility: [facility] Address: [address] [place] [address] Performed By: #### 2 4321-2 ####[facility]ATORYCLIA [id number] [address] STATES OF [facility] CBC W Auto Differential pane l (Bld)on 07-26-2021 Basophils (Bld) [#/Vol] 0.04 10*3/uL Normal <0.11 [facility] Comment on above: Order Comment: Speci men Type: BLOOD SPECIMENOrdering Facility: [facility] Address: [address] [place] [address] Performed By: #### 5 7021-8 ####[facility] LABORATORYCLIA [id number] [address] STATES [facility] Basophils/100 WBC (Bld) 0.4 % Normal [facility] Comment on above: Order Comment: Speci men Type: BLOOD SPECIMENOrdering Facility: [facility] Address: [address] [place] [address] Performed By: #### 5 7021-8 ####[facility] LABORATORYCLIA [id number] [address] OF [place] Differential cell count method Nom (Bld) Auto Normal [facility] Comment on above: Order Comment: Speci men Type: BLOOD SPECIMENOrdering Facility: [facility] Address: [address] [place] [address] Performed By: #### 5 7021-8 ####[facility]ATORYCLIA [id number] [place] [address] [place] Eosinophils (Bld) [#/Vol] 0.63 10*3/uL High <0.46 [facility] Comment on above: Order Comment: Speci men Type: BLOOD SPECIMENOrdering Facility: [facility] Address: [address] [place] [address] Performed By: #### 5 7021-8 ####[facility]ATORYCLIA [id number] [address] Eosinophils/100 WBC (Bld) 5.8 % Normal [facility] Comment on above: Order Comment: Speci men Type: BLOOD SPECIMENOrdering Facility: [facility] Address: [address] [place] [address] Performed By: #### 5 7021-8 ####[facility]ATORYCLIA [id number] [address] [place] Erythrocyte distribution width (RBC) [Ratio] 16.8 % High 11.5-15.0 [facility] Comment on above: Order Comment: Speci men Type: BLOOD SPECIMENOrdering Facility: [facility] Address: [address] [place] [address] Performed By: #### 5 7021-8 ####[facility]ATORYCLIA [id number] [address] [place] Hematocrit (Bld) [Volume fraction] 31.2 % Low 39.0-51.0 [facility] Comment on above: Order Comment: Speci men Type: BLOOD SPECIMENOrdering Facility: [facility] Address: [address] [place] [address] Performed By: #### 5 7021-8 ####[facility]ATORYCLIA [id number] [address] OF [facility] Hemoglobin (Bld) [Mass/Vol] 9.1 g/dL Low 13.0-17.0 [facility] Comment on above: Order Comment: Speci men Type: BLOOD SPECIMENOrdering Facility: [facility] Address: [address] [place] [address] Performed By: #### 5 7021-8 ####[facility]ATORYCLIA [id number] [address] IMMATURE GRAN % 0.6 % Normal [facility] Comment on above: Order Comment: Speci men Type: BLOOD SPECIMENOrdering Facility: [facility] Address: [address] [place] [address] Performed By: #### 5 7021-8 ####[facility]ATORYCLIA [id number] [address] IMMATURE GRAN ABS 0.07 k/uL Normal <0.10 [facility] Comment on above: Order Comment: Speci men Type: BLOOD SPECIMENOrdering Facility: [facility] Address: [address] [place] [address] Performed By: #### 5 7021-8 ####[facility]ATORYCLIA [id number] [address] [place] Lymphocytes (Bld) [#/Vol] 2.16 10*3/uL Normal 1.00-4.00 [facility] Comment on above: Order Comment: Speci men Type: BLOOD SPECIMENOrdering Facility: [facility] Address: [address] [place] [address] Performed By: #### 5 7021-8 ####[facility]ORYCLIA [id number] [address] Lymphocytes/100 WBC (Bld) 20.0 % Normal [facility] Comment on above: Order Comment: Speci men Type: BLOOD SPECIMENOrdering Facility: [facility] Address: [facility] [place] [address] Performed By: #### 5 7021-8 ####[facility]ATORYCLIA [id number] [address] MCH (RBC) [Entitic mass] 27.7 pg Normal 26.0-34.0 [facility] Comment on above: Order Comment: Speci men Type: BLOOD SPECIMENOrdering Facility: [facility] Address: [address] [place] [address] Performed By: #### 5 7021-8 ####[facility]ATORYCLIA [id number] [address] MCHC (RBC) [Mass/Vol] 29.2 g/dL Low 30.5-36.0 [facility] Comment on above: Order Comment: Speci men Type: BLOOD SPECIMENOrdering Facility: [facility] Address: [address] [place] [address] Performed By: #### 5 7021-8 ####[facility]ATORYCLIA [id number] [address] STATES [facility] MCV (RBC) [Entitic vol] 95.1 fL Normal 80.0-100.0 [facility] Comment on above: Order Comment: Speci men Type: BLOOD SPECIMENOrdering Facility: [facility] Address: [address] [place] [address] Performed By: #### 5 7021-8 ####[facility]ATORYCLIA [id number] [address] Monocytes (Bld) [#/Vol] 0.63 10*3/uL Normal <0.87 [facility] Comment on above: Order Comment: Speci men Type: BLOOD SPECIMENOrdering Facility: [facility] Address: [address] [place] [address] Performed By: #### 5 7021-8 ####[facility]ORATORYCLIA [id number] [place] [address] [place] Monocytes/100 WBC (Bld) 5.8 % Normal [facility] Comment on above: Order Comment: Speci men Type: BLOOD SPECIMENOrdering Facility: [facility] Address: [address] [address] Performed By: #### 5 7021-8 ####[facility]ORATORYCLIA [id number] [place] [address] [place] Neutrophils (Bld) [#/Vol] 7.25 10*3/uL Normal 1.45-7.50 [facility] Comment on above: Order Comment: Speci men Type: BLOOD SPECIMENOrdering Facility: [facility] Address: [address] [place] [address] Performed By: #### 5 7021-8 ####[facility]ORATORYCLIA [id number] [address] [place] Neutrophils/100 WBC (Bld) 67.4 % Normal [facility] Comment on above: Order Comment: Speci men Type: BLOOD SPECIMENOrdering Facility: [facility] Address: [address] [place] [address] Performed By: #### 5 7021-8 ####[facility] LABORATORYCLIA [id number] [address] [place] Nucleated RBC (Bld) [#/Vol] 10*3/uL Normal <0.01 [facility] Comment on above: Order Comment: Speci men Type: BLOOD SPECIMENOrdering Facility: [facility] Address: [address] [place] [address] Performed By: #### 5 7021-8 ####[facility] [facility]ORATORYCLIA [id number] [address] [place] Nucleated RBC/100 WBC (Bld) [Ratio] 0.0 /100 WBC Normal [facility] Comment on above: Order Comment: Speci men Type: BLOOD SPECIMENOrdering Facility: [facility] Address: [address] [place] [address] Performed By: #### 5 7021-8 ####[facility]ORATORYCLIA [id number] [address] [place] Platelet mean volume (Bld) [Entitic vol] 11.2 fL Normal 9.0-12.7 [facility] Comment on above: Order Comment: Speci men Type: BLOOD SPECIMENOrdering Facility: [facility] Address: [address] [place] [address] Performed By: #### 5 7021-8 ####[facility]ATORYCLIA [id number] [address] [place] Platelets (Bld) [#/Vol] 245 10*3/uL Normal 150-400 [facility] Comment on above: Order Comment: Speci men Type: BLOOD SPECIMENOrdering Facility: [facility] Address: [address] [place] [address] Performed By: #### 5 7021-8 ####[facility]ORATORYCLIA [id number] [place] [address] [place] RBC (Bld) [#/Vol] 3.28 10*6/uL Low 4.20-6.00 [facility] Comment on above: Order Comment: Speci men Type: BLOOD SPECIMENOrdering Facility: [facility] Address: [address] [place] [address] Performed By: #### 5 7021-8 ####[facility]ATORYCLIA [id number] [address] [place] WBC (Bld) [#/Vol] 10.78 10*3/uL Normal 3.70-11.00 [facility] Comment on above: Order Comment: Speci men Type: BLOOD SPECIMENOrdering Facility: [facility] Address: [address] [place] [address] Performed By: #### 5 7021-8 ####[facility]ATORYCLIA [id number] [address] [place] CSF MANUAL DIFFon 07-26-2021 DIF TTL, CSF 100 cells counted Normal [facility] Comment on above: Order Comment: Speci men Type: CEREBROSPINAL FLUIDOrdering Facility: [facility] Address: [address] [address] Performed By: #### 3 4563-7, [id number], [id number] ####[facility]ORATORYCLIA [id number] [address] [place] LYMPH%, CSF 26 % Low 50-90 [facility] Comment on above: Order Comment: Speci men Type: CEREBROSPINAL FLUIDOrdering Facility: [facility] Address: [address] [place] [address] Performed By: #### 3 4563-7, [id number], [id number] ####[facility]ORATORYCLIA [id number] [address] [place] MACRO%, CSF 10 % High <1 [facility] Comment on above: Order Comment: Speci men Type: CEREBROSPINAL FLUIDOrdering Facility: [facility] Address: [address] [place] [address] Performed By: #### 3 4563-7, [id number], [id number] ####[facility]ORATORYCLIA [id number] [address] [place] MONO%, CSF 20 % Normal 10-50 [facility] Comment on above: Order Comment: Speci men Type: CEREBROSPINAL FLUIDOrdering Facility: [facility] Address: [address] [address] Performed By: #### 3 4563-7, [id number], [id number] ####[facility]ORATORYCLIA [id number] [address] [place] NEUT%, CSF 40 % High 0-3 [facility] Comment on above: Order Comment: Speci men Type: CEREBROSPINAL FLUIDOrdering Facility: [facility] Address: [facility] [address] Performed By: #### 3 4563-7, [id number], [id number] ####[facility]ORATORYCLIA [id number] [address] OTHER CL%, CSF 2 % Normal [facility] Comment on above: Order Comment: Speci men Type: CEREBROSPINAL FLUIDOrdering Facility: [facility] Address: [address] [place] [address] Result Comment: Path review to follow. Performed By: #### 3 4563-7, [id number], [id number] ####[facility]ATORYCLIA [id number] [address] [place] REAC LYMPH %, CSF 2 % Normal [facility] Comment on above: Order Comment: Speci men Type: CEREBROSPINAL FLUIDOrdering Facility: [facility] Address: [address] [place] [address] Performed By: #### 3 4563-7, [id number], [id number] ####[facility]ATORYCLIA [id number] [address] CSF PATHOLOGIST INTERP (LAB REFLEX ORDER-NO BILL)on 07-26-2021 CSF STAFF REVIEW Negative for maligna nt cells. Rare bacteria present, cocci in pairs and chains. Correlation with CSF cultures is recommended. Normal [facility] Comment on above: Order Comment: Speci men Type: CEREBROSPINAL FLUIDOrdering Facility: [facility] Address: [address] [place] [address] Performed By: #### 3 4563-7, [id number], [id number] ####[facility]ORATORYCLIA [id number] [address] Pathologist name Reviewed by Amador Stevens MD [facility] Comment on above: Order Comment: Speci men Type: CEREBROSPINAL FLUIDOrdering Facility: [facility] Address: [address] [place] [address] Performed By: #### 3 4563-7, [id number], [id number] ####[facility]ORATORYCLIA [id number] [address] [place] Cell count panel (CSF)on Clarity (CSF) Slightly Cloudy Abnormal Clear [facility] Comment on above: Order Comment: Speci men Type: CEREBROSPINAL FLUIDOrdering Facility: [facility] Address: [address] [address] Performed By: #### 3 4563-7, [id number], [id number] ####[facility]ORATORYCLIA [id number] [address] Clarity (Unsp spec) Clear Normal Clear [facility] Comment on above: Order Comment: Speci men Type: CEREBROSPINAL FLUIDOrdering Facility: [facility] Address: [address] [address] Performed By: #### 3 4563-7, [id number], [id number] ####[facility]ORATORYCLIA [id number] [address] Color (CSF) Colorless Normal Colorless [facility] Comment on above: Order Comment: Speci men Type: CEREBROSPINAL FLUIDOrdering Facility: [facility] Address: [address] [address] Performed By: #### 3 4563-7, [id number], [id number] ####[facility]ATORYCLIA [id number] [address] Color (Spun CSF) Not Indicated Normal Colorless [facility] Comment on above: Order Comment: Speci men Type: CEREBROSPINAL FLUIDOrdering Facility: [facility] Address: [address] [address] Performed By: #### 3 4563-7, [id number], [id number] ####[facility] [facility]ATORYCLIA [id number] [address] CSF TUBE NUMBER [employer] Normal [facility] Comment on above: Order Comment: Speci men Type: CEREBROSPINAL FLUIDOrdering Facility: [facility] Address: [address] [address] Performed By: #### 3 4563-7, [id number], [id number] ####[facility]ORATORYCLIA [id number] [place] [address] [place] RBC Manual cnt (CSF) [#/Vol] 1 cells/uL Normal 0-5 [facility] Comment on above: Order Comment: Speci men Type: CEREBROSPINAL FLUIDOrdering Facility: [facility] Address: [address] [place] [address] Performed By: #### 3 4563-7, [id number], [id number] ####[facility]ATORYCLIA [id number] [address] STATES OF [facility] WBC Manual cnt (CSF) [#/Vol] 50 cells/uL High 0-5 [facility] Comment on above: Order Comment: Speci men Type: CEREBROSPINAL FLUIDOrdering Facility: [facility] Address: [address] [place] [address] Performed By: #### 3 4563-7, [id number], [id number] ####[facility]ATORYCLIA [id number] [address] OF [facility] Glucose CSF-ncon Glucose (CSF) [Mass/Vol] 64 mg/dL Normal 40-70 [facility] Comment on above: Order Comment: Speci men Type: CEREBROSPINAL FLUIDOrdering Facility: [facility] Address: [address] [place] [address] Result Comment: Lumb ar CSF glucose values of healthy patients are approximately 60% of the plasma values and must always be compared with a concurrently measured plasma value for adequate clinical interpretation.References: 1. Glucose HK (GLUC3) [package insert V 12.0 [place]]. [employer], [place], [place]. September 2015. 2. Teresa HGarfield, Loki, H. (2015). Chapter 7: Glucose and Lactate. F. Irina rose al.(eds.), Cerebrospinal Fluid in Clinical Neurology. [place]: [employer]. Performed By: #### 2 880-3, 2342-4 ####[facility]ATORYCLIA [id number] [address] [place] Magnesium SerPl-mCncon 07-26 Magnesium [Mass/Vol] 2.3 mg/dL Normal 1.7-2.3 [facility] Comment on above: Order Comment: Speci men Type: BLOOD SPECIMENOrdering Facility: [facility] Address: [address] [place] [address] Performed By: #### 1 9123-9, 2777-1, 6-3 ####[facility]ATORYCLIA [id number] [address] NURSING PROGon 07-26-2021 NURSING PROG Normal [facility] Phosphate SerPl-mCncon 07-26 Phosphate [Mass/Vol] 2.6 mg/dL Low 2.7-4.8 [facility] Comment on above: Order Comment: Speci men Type: BLOOD SPECIMENOrdering Facility: [facility] Address: [address] [place] [address] Performed By: #### 1 9123-9, 2777-1, 3015-3 ####[facility]ATORYCLIA [id number] [address] OF [facility] Prot CSF-mCncon 07-26-2021 Protein (CSF) [Mass/Vol] 64 mg/dL High 15-45 [facility] Comment on above: Order Comment: Speci men Type: CEREBROSPINAL FLUIDOrdering Facility: [facility] Address: [address] [place] [address] Performed By: #### 2 880-3, 2342-4 ####[facility]ATORYCLIA [id number] [address] THERAPY NTon 07-26-2021 THERAPY NT Normal [facility] TSH SerPl-aCncon 07-26-2021 TSH Qn 1.470 m[IU]/L Normal 0.270-4.200 [facility] Comment on above: Order Comment: Speci men Type: BLOOD SPECIMENOrdering Facility: [facility] Address: [address] [place] [address] Performed By: #### 1 9123-9, 2777-1, 6-3 ####[facility]ATORYCLIA [id number] [address] OF [facility] VITAMIN B12 BLOODon 07-27-19 Cobalamin (Vitamin B12) [Mass/Vol] 934 pg/mL Normal 232-1,245 [facility] Comment on above: Order Comment: Speci men Type: BLOOD SPECIMENOrdering Facility: [facility] Address: [address] [place] [address] Performed By: #### B 12 ####[facility]ATORYCLIA [id number] [address] aPTT PPPon 07-26-2021 aPTT Coag (PPP) [Time] 53.6 s High 23.0-32.4 [facility] Comment on above: Order Comment: Speci men Type: BLOOD SPECIMENOrdering Facility: [facility] Address: [address] [place] [address] Performed By: #### 1 4979-9 ####[facility]ITALCLIA [id number] [address] aPTT Coag (PPP) [Time] 44.9 s High 23.0-32.4 [facility] Comment on above: Order Comment: Speci men Type: BLOOD SPECIMENOrdering Facility: [facility] Address: [address] [place] [address] Performed By: #### 1 4979-9 ####[facility]ATORYCLIA [id number] [address] ALLIED HEALTHon 07-25-2021 ALLIED HEALTH HNO ID: [id number] Author: RT Rajwinder(R) Service: Radiology Author Type: Technologist Type: Allied Health Filed: 07/25/2021 1:37 PM Note Text: Called floor for MRI screening form [id number] Normal [facility] Bacteria Bld Culton 07-26-19 Bacteria identified Cx Nom (Bld) CULTURE, BLOOD: No growth 5 days Normal [facility] Comment on above: Performed By: #### 6 00-7 ####[facility]ATORYCLIA [id number] [address] Bacteria identified Cx Nom (Bld) CULTURE, BLOOD: No growth 5 days Normal [facility] Comment on above: Performed By: #### 6 00-7 ####[facility]ORATORYCLIA [id number] [address] OF [facility] CASE MANAGEMon 07-25-2021 CASE MANAGEM Normal [facility] CBC W Auto Differential pane l (Bld)on 07-25-2021 Basophils (Bld) [#/Vol] 0.06 10*3/uL Normal <0.11 [facility] Comment on above: Order Comment: Speci men Type: BLOOD SPECIMENOrdering Facility: [facility] Address: [address] [place] [address] Performed By: #### 5 7021-8 ####[facility]ATORYCLIA [id number] [address] Basophils/100 WBC (Bld) 0.6 % Normal [facility] Comment on above: Order Comment: Speci men Type: BLOOD SPECIMENOrdering Facility: [facility] Address: [address] [place] [address] Performed By: #### 5 7021-8 ####[facility]ORATORYCLIA [id number] [address] STATES [facility] Differential cell count method Nom (Bld) Auto Normal [facility] Comment on above: Order Comment: Speci men Type: BLOOD SPECIMENOrdering Facility: [facility] Address: [address] [address] Performed By: #### 5 7021-8 ####[facility]ATORYCLIA [id number] [address] [place] Eosinophils (Bld) [#/Vol] 0.26 10*3/uL Normal <0.46 [facility] Comment on above: Order Comment: Speci men Type: BLOOD SPECIMENOrdering Facility: [facility] Address: [address] [address] Performed By: #### 5 7021-8 ####[facility]ORATORYCLIA [id number] [address] [place] Eosinophils/100 WBC (Bld) 2.5 % Normal [facility] Comment on above: Order Comment: Speci men Type: BLOOD SPECIMENOrdering Facility: [facility] Address: [address] [place] [address] Performed By: #### 5 7021-8 ####[facility]ATORYCLIA [id number] [address] Erythrocyte distribution width (RBC) [Ratio] 16.9 % High 11.5-15.0 [facility] Comment on above: Order Comment: Speci men Type: BLOOD SPECIMENOrdering Facility: [facility] Address: [address] [place] [address] Performed By: #### 5 7021-8 ####[facility]ORATORYCLIA [id number] [address] Hematocrit (Bld) [Volume fraction] 29.6 % Low 39.0-51.0 [facility] Comment on above: Order Comment: Speci men Type: BLOOD SPECIMENOrdering Facility: [facility] Address: [address] [place] [address] Performed By: #### 5 7021-8 ####[facility]ATORYCLIA [id number] [address] [place] Hemoglobin (Bld) [Mass/Vol] 8.8 g/dL Low 13.0-17.0 [facility] Comment on above: Order Comment: Speci men Type: BLOOD SPECIMENOrdering Facility: [facility] Address: [address] [place] [address] Performed By: #### 5 7021-8 ####[facility]ORATORYCLIA [id number] [address] [place] IMMATURE GRAN % 0.6 % Normal [facility] Comment on above: Order Comment: Speci men Type: BLOOD SPECIMENOrdering Facility: [facility] Address: [address] [place] [address] Performed By: #### 5 7021-8 ####[facility]ORATORYCLIA [id number] [address] IMMATURE GRAN ABS 0.06 k/uL Normal <0.10 [facility] Comment on above: Order Comment: Speci men Type: BLOOD SPECIMENOrdering Facility: [facility] Address: [address] [place] [address] Performed By: #### 5 7021-8 ####[facility]ORATORYCLIA [id number] [address] Lymphocytes (Bld) [#/Vol] 2.15 10*3/uL Normal 1.00-4.00 [facility] Comment on above: Order Comment: Speci men Type: BLOOD SPECIMENOrdering Facility: [facility] Address: [address] [place] [address] Performed By: #### 5 7021-8 ####[facility]ORATORYCLIA [id number] [address] Lymphocytes/100 WBC (Bld) 20.7 % Normal [facility] Comment on above: Order Comment: Speci men Type: BLOOD SPECIMENOrdering Facility: [facility] Address: [address] [place] [address] Performed By: #### 5 7021-8 ####[facility]ORATORYCLIA [id number] [address] MCH (RBC) [Entitic mass] 28.2 pg Normal 26.0-34.0 [facility] Comment on above: Order Comment: Speci men Type: BLOOD SPECIMENOrdering Facility: [facility] Address: [address] [place] [address] Performed By: #### 5 7021-8 ####[facility]ORATORYCLIA [id number] [address] MCHC (RBC) [Mass/Vol] 29.7 g/dL Low 30.5-36.0 [facility] Comment on above: Order Comment: Speci men Type: BLOOD SPECIMENOrdering Facility: [facility] Address: [address] [place] [address] Performed By: #### 5 7021-8 ####[facility]ORATORYCLIA [id number] [address] [place] MCV (RBC) [Entitic vol] 94.9 fL Normal 80.0-100.0 [facility] Comment on above: Order Comment: Speci men Type: BLOOD SPECIMENOrdering Facility: [facility] Address: [address] [place] [address] Performed By: #### 5 7021-8 ####[facility]ORATORYCLIA [id number] [address] [place] Monocytes (Bld) [#/Vol] 0.62 10*3/uL Normal <0.87 [facility] Comment on above: Order Comment: Speci men Type: BLOOD SPECIMENOrdering Facility: [facility] Address: [address] [place] [address] Performed By: #### 5 7021-8 ####[facility]ORATORYCLIA [id number] [address] OF [facility] Monocytes/100 WBC (Bld) 6.0 % Normal [facility] Comment on above: Order Comment: Speci men Type: BLOOD SPECIMENOrdering Facility: [facility] Address: [address] [place] [address] Performed By: #### 5 7021-8 ####[facility]ORATORYCLIA [id number] [address] [place] Neutrophils (Bld) [#/Vol] 7.25 10*3/uL Normal 1.45-7.50 [facility] Comment on above: Order Comment: Speci men Type: BLOOD SPECIMENOrdering Facility: [facility] Address: [address] [place] [address] Performed By: #### 5 7021-8 ####[facility]ORATORYCLIA [id number] [address] [place] Neutrophils/100 WBC (Bld) 69.6 % Normal [facility] Comment on above: Order Comment: Speci men Type: BLOOD SPECIMENOrdering Facility: [facility] Address: [address] [place] [address] Performed By: #### 5 7021-8 ####[facility]ORATORYCLIA [id number] [address] [place] Nucleated RBC (Bld) [#/Vol] 10*3/uL Normal <0.01 [facility] Comment on above: Order Comment: Speci men Type: BLOOD SPECIMENOrdering Facility: [facility] Address: [address] [place] [address] Performed By: #### 5 7021-8 ####[facility]ATORYCLIA [id number] [address] Nucleated RBC/100 WBC (Bld) [Ratio] 0.0 /100 WBC Normal [facility] Comment on above: Order Comment: Speci men Type: BLOOD SPECIMENOrdering Facility: [facility] Address: [address] [place] [address] Performed By: #### 5 7021-8 ####[facility]ATORYCLIA [id number] [address] [place] Platelet mean volume (Bld) [Entitic vol] 11.3 fL Normal 9.0-12.7 [facility] Comment on above: Order Comment: Speci men Type: BLOOD SPECIMENOrdering Facility: [facility] Address: [address] [place] [address] Performed By: #### 5 7021-8 ####[facility]ATORYCLIA [id number] [address] [place] Platelets (Bld) [#/Vol] 243 10*3/uL Normal 150-400 [facility] Comment on above: Order Comment: Speci men Type: BLOOD SPECIMENOrdering Facility: [facility] Address: [address] [address] Performed By: #### 5 7021-8 ####[facility]ATORYCLIA [id number] [address] [place] RBC (Bld) [#/Vol] 3.12 10*6/uL Low 4.20-6.00 [facility] Comment on above: Order Comment: Speci men Type: BLOOD SPECIMENOrdering Facility: [facility] Address: [address] [place] [address] Performed By: #### 5 7021-8 ####[facility]ORATORYCLIA [id number] [address] [place] [facility] WBC (Bld) [#/Vol] 10.40 10*3/uL Normal 3.70-11.00 [facility] Comment on above: Order Comment: Speci men Type: BLOOD SPECIMENOrdering Facility: [facility] Address: [address] [place] [address] Performed By: #### 5 7021-8 ####[facility]ORATORYCLIA [id number] [address] [place] CONSULT PROGon 07-25-2021 CONSULT PROG Normal [facility] MYCOPLASMA PNEUM IGMon 07-25 M. PNEUMO IGM, QUAL Negative Normal Negative [facility] Comment on above: Order Comment: Speci men Type: BLOOD SPECIMENOrdering Facility: [facility] Address: [address] [place] [address] Result Comment: Myco plasma pneumoniae IgM antibody test is used as an aid in diagnosis of recent infection with M. pneumoniae. It may occasionally remain elevated for extended periods after an acute infection. Cannot exclude recent infection if the specimen collected 7-10 days after onset of signs and symptoms. Clinical correlation is required. Performed By: #### M YCOPM ####[facility] LABCLIA [id number] [facility] [address] [place] NURSING PROGon 07-25-2021 NURSING PROG Normal [facility] THERAPY NTon 07-25-2021 THERAPY NT Normal [facility] THERAPY NT Normal [facility] aPTT PPPon 07-25-2021 aPTT Coag (PPP) [Time] 62.6 s High 23.0-32.4 [facility] Comment on above: Order Comment: Speci men Type: BLOOD SPECIMENOrdering Facility: [facility] Address: [address] [place] [address] Performed By: #### 1 4979-9 ####[facility]ATORYCLIA [id number] [address] [place] Bacteria Ur Culton 2 Bacteria identified Cx Nom (U) CULTURE, URINE: No growth (<100 CFU/ml) Normal [facility] Comment on above: Performed By: #### 6 30-4 ####[facility]ORATORYCLIA [id number] [place] [address] [place] Basic metabolic 2000 panelon 07-24-2021 Anion gap [Moles/Vol] 13 mmol/L Normal 9-18 [facility] Comment on above: Order Comment: Speci men Type: BLOOD SPECIMENOrdering Facility: [facility] Address: [address] [place] [address] Performed By: #### 1 9123-9, KATIE, 2777-, 01148-3 ####[facility]ORATORYCLIA [id number] [place] [address] [place] Calcium [Mass/Vol] 9.5 mg/dL Normal 8.5-10.2 [facility] Comment on above: Order Comment: Speci men Type: BLOOD SPECIMENOrdering Facility: [facility] Address: [address] [place] [address] Performed By: #### 1 9123-9, KATIE, 2776-, 21403-2 ####[facility]ORATORYCLIA [id number] [place] [address] [place] Chloride [Moles/Vol] 102 mmol/L Normal 97-105 [facility] Comment on above: Order Comment: Speci men Type: BLOOD SPECIMENOrdering Facility: [facility] Address: [address] [place] [address] Performed By: #### 1 9123-9, PROCCARLITOS, 2776-05, 61363-4 ####[facility]ATORYCLIA [id number] [address] CO2 [Moles/Vol] 28 mmol/L Normal 22-30 [facility] Comment on above: Order Comment: Speci men Type: BLOOD SPECIMENOrdering Facility: [facility] Address: [address] [place] [address] Performed By: #### 1 9123-9, KATIE, 2776-05, 52879-0 ####[facility]ITALCL[facility] [id number] [address] Creatinine [Mass/Vol] 0.86 mg/dL Normal 0.73-1.22 [facility] Comment on above: Order Comment: Speci men Type: BLOOD SPECIMENOrdering Facility: [facility] Address: [address] [place] [address] Performed By: #### 1 9123-9, KATIE, 2776-05, 67799-6 ####[facility]ORATORYIA [id number] [address] ESTIMATED GLOMERULAR FILTRATION RATE 94 mL/min/1.73m??? Normal >=60 [facility] Comment on above: Order Comment: Speci men Type: BLOOD SPECIMENOrdering Facility: [facility] Address: [address] [place] [address] Result Comment: Luzmaria mated Glomerular Filtration Rate [...] GFR. Performed By: #### 1 9123-9, PROCAL, 277-1, 84059-3 ####[facility]ORATORYCLIA [id number] [place] [address] [place] Glucose [Mass/Vol] 148 mg/dL High 74-99 [facility] Comment on above: Order Comment: Speci men Type: BLOOD SPECIMENOrdering Facility: [facility] Address: [address] [place] [address] Result Comment: The [place] Diabetes [employer] (ADA) provides guidance for cutoff [...] Standards of Medical Care in Diabetes 2016, [place] [employer]. Diabetes Care. 2016.39(Suppl 1). Performed By: #### 1 9123-9, PROCAL, 2776-, 45370-8 ####[facility]ORATORYCLIA [id number] [place] [address] [place] Potassium [Moles/Vol] 4.0 mmol/L Normal 3.7-5.1 [facility] Comment on above: Order Comment: Speci men Type: BLOOD SPECIMENOrdering Facility: [facility] Address: [address] [place] [address] Performed By: #### 1 9123-9, PROCAL, 2776-, 50078-3 ####[facility]ORATORYCLIA [id number] [place] [address] [place] Sodium [Moles/Vol] 143 mmol/L Normal 136-144 [facility] Comment on above: Order Comment: Speci men Type: BLOOD SPECIMENOrdering Facility: [facility] Address: [address] [place] [address] Performed By: #### 1 9123-9, PROCAL, 7-, 31136-9 ####[facility]ORATORYCLIA [id number] [place] [address] [place] Urea nitrogen [Mass/Vol] 38 mg/dL High 9- [facility] Comment on above: Order Comment: Speci men Type: BLOOD SPECIMENOrdering Facility: [facility] Address: [address] [place] [address] Performed By: #### 1 9123-9, PROCAL, 2777-1, 04777-7 ####[facility]ATORYCLIA [id number] [place] [address] [place] CBC W Auto Differential pane l (Bld)on 07-24-2021 Basophils (Bld) [#/Vol] 0.06 10*3/uL Normal <0.11 [facility] Comment on above: Order Comment: Speci men Type: BLOOD SPECIMENOrdering Facility: [facility] Address: [address] [place] [address] Performed By: #### 5 7021-8 ####[facility]ORATORYCLIA [id number] [address] [place] Basophils/100 WBC (Bld) 0.6 % Normal [facility] Comment on above: Order Comment: Speci men Type: BLOOD SPECIMENOrdering Facility: [facility] Address: [address] [place] [address] Performed By: #### 5 7021-8 ####[facility]ORATORYCLIA [id number] [address] Differential cell count method Nom (Bld) Auto Normal [facility] Comment on above: Order Comment: Speci men Type: BLOOD SPECIMENOrdering Facility: [facility] Address: [address] [place] [address] Performed By: #### 5 7021-8 ####[facility]ORATORYCLIA [id number] [place] [address] [place] Eosinophils (Bld) [#/Vol] 0.03 10*3/uL Normal <0.46 [facility] Comment on above: Order Comment: Speci men Type: BLOOD SPECIMENOrdering Facility: [facility] Address: [address] [place] [address] Performed By: #### 5 7021-8 ####[facility]ATORYCLIA [id number] [address] [place] Eosinophils/100 WBC (Bld) 0.3 % Normal [facility] Comment on above: Order Comment: Speci men Type: BLOOD SPECIMENOrdering Facility: [facility] Address: [address] [place] [address] Performed By: #### 5 7021-8 ####[facility]ORATORYCLIA [id number] [address] Erythrocyte distribution width (RBC) [Ratio] 17.0 % High 11.5-15.0 [facility] Comment on above: Order Comment: Speci men Type: BLOOD SPECIMENOrdering Facility: [facility] Address: [address] [place] [address] Performed By: #### 5 7021-8 ####[facility]ORATORYCLIA [id number] [address] Hematocrit (Bld) [Volume fraction] 30.5 % Low 39.0-51.0 [facility] Comment on above: Order Comment: Speci men Type: BLOOD SPECIMENOrdering Facility: [facility] Address: [address] [place] [address] Performed By: #### 5 7021-8 ####[facility]ORATORYCLIA [id number] [address] [place] Hemoglobin (Bld) [Mass/Vol] 9.0 g/dL Low 13.0-17.0 [facility] Comment on above: Order Comment: Speci men Type: BLOOD SPECIMENOrdering Facility: [facility] Address: [address] [place] [address] Performed By: #### 5 7021-8 ####[facility]ORATORYCLIA [id number] [address] IMMATURE GRAN % 0.5 % Normal [facility] Comment on above: Order Comment: Speci men Type: BLOOD SPECIMENOrdering Facility: [facility] Address: [address] [place] [address] Performed By: #### 5 7021-8 ####[facility]ATORYCLIA [id number] [address] IMMATURE GRAN ABS 0.05 k/uL Normal <0.10 [facility] Comment on above: Order Comment: Speci men Type: BLOOD SPECIMENOrdering Facility: [facility] Address: [address] [place] [address] Performed By: #### 5 7021-8 ####[facility]ATORYCLIA [id number] [address] Lymphocytes (Bld) [#/Vol] 1.68 10*3/uL Normal 1.00-4.00 [facility] Comment on above: Order Comment: Speci men Type: BLOOD SPECIMENOrdering Facility: [facility] Address: [address] [place] [address] Performed By: #### 5 7021-8 ####[facility]ATORYCLIA [id number] [address] Lymphocytes/100 WBC (Bld) 16.2 % Normal [facility] Comment on above: Order Comment: Speci men Type: BLOOD SPECIMENOrdering Facility: [facility] Address: [address] [place] [address] Performed By: #### 5 7021-8 ####[facility]ATORYCLIA [id number] [address] [place] [facility] MCH (RBC) [Entitic mass] 27.4 pg Normal 26.0-34.0 [facility] Comment on above: Order Comment: Speci men Type: BLOOD SPECIMENOrdering Facility: [facility] Address: [address] [place] [address] Performed By: #### 5 7021-8 ####[facility]ORATORYCLIA [id number] [address] STATES OF [facility] MCHC (RBC) [Mass/Vol] 29.5 g/dL Low 30.5-36.0 [facility] Comment on above: Order Comment: Speci men Type: BLOOD SPECIMENOrdering Facility: [facility] Address: [address] [place] [address] Performed By: #### 5 7021-8 ####[facility]ATORYCLIA [id number] [address] MCV (RBC) [Entitic vol] 93.0 fL Normal 80.0-100.0 [facility] Comment on above: Order Comment: Speci men Type: BLOOD SPECIMENOrdering Facility: [facility] Address: [address] [place] [address] Performed By: #### 5 7021-8 ####[facility]ATORYCLIA [id number] [address] [place] Monocytes (Bld) [#/Vol] 0.63 10*3/uL Normal <0.87 [facility] Comment on above: Order Comment: Speci men Type: BLOOD SPECIMENOrdering Facility: [facility] Address: [address] [place] [address] Performed By: #### 5 7021-8 ####[facility]ATORYCLIA [id number] [address] Monocytes/100 WBC (Bld) 6.1 % Normal [facility] Comment on above: Order Comment: Speci men Type: BLOOD SPECIMENOrdering Facility: [facility] Address: [address] [place] [address] Performed By: #### 5 7021-8 ####[facility]ORATORYCLIA [id number] [address] [place] Neutrophils (Bld) [#/Vol] 7.91 10*3/uL High 1.45-7.50 [facility] Comment on above: Order Comment: Speci men Type: BLOOD SPECIMENOrdering Facility: [facility] Address: [address] [place] [address] Performed By: #### 5 7021-8 ####[facility]ATORYCLIA [id number] [address] Neutrophils/100 WBC (Bld) 76.3 % Normal [facility] Comment on above: Order Comment: Speci men Type: BLOOD SPECIMENOrdering Facility: [facility] Address: [address] [place] [address] Performed By: #### 5 7021-8 ####[facility]ATORYCLIA [id number] [address] Nucleated RBC (Bld) [#/Vol] 10*3/uL Normal <0.01 [facility] Comment on above: Order Comment: Speci men Type: BLOOD SPECIMENOrdering Facility: [facility] Address: [address] [place] [address] Performed By: #### 5 7021-8 ####[facility]ORATORYCLIA [id number] [address] Nucleated RBC/100 WBC (Bld) [Ratio] 0.0 /100 WBC Normal [facility] Comment on above: Order Comment: Speci men Type: BLOOD SPECIMENOrdering Facility: [facility] Address: [address] [place] [address] Performed By: #### 5 7021-8 ####[facility]ORATORYCLIA [id number] [address] Platelet mean volume (Bld) [Entitic vol] 11.1 fL Normal 9.0-12.7 [facility] Comment on above: Order Comment: Speci men Type: BLOOD SPECIMENOrdering Facility: [facility] Address: [address] [place] [address] Performed By: #### 5 7021-8 ####[facility]ORATORYCLIA [id number] [address] [place] Platelets (Bld) [#/Vol] 285 10*3/uL Normal 150-400 [facility] Comment on above: Order Comment: Speci men Type: BLOOD SPECIMENOrdering Facility: [facility] Address: [address] [place] [address] Performed By: #### 5 7021-8 ####[facility]ORATORYCLIA [id number] [place] [address] [place] RBC (Bld) [#/Vol] 3.28 10*6/uL Low 4.20-6.00 [facility] Comment on above: Order Comment: Speci men Type: BLOOD SPECIMENOrdering Facility: [facility] Address: [address] [place] [address] Performed By: #### 5 7021-8 ####[facility]ORATORYCLIA [id number] [address] [place] WBC (Bld) [#/Vol] 10.36 10*3/uL Normal 3.70-11.00 [facility] Comment on above: Order Comment: Speci men Type: BLOOD SPECIMENOrdering Facility: [facility] Address: [address] [place] [address] Performed By: #### 5 7021-8 ####[facility]ORATORYCLIA [id number] [address] [place] Legionella Ag Ur Qlon 2021 Legionella sp Ag Ql (U) Negative Normal Negative [facility] Comment on above: Order Comment: Speci men Type: URINE SPECIMENOrdering Facility: [facility] Address: [address] [place] [address] Performed By: #### 3 2781-7 ####[facility]ORATORYCLIA [id number] [address] [place] Magnesium SerPl-mCncon 07-24 Magnesium [Mass/Vol] 2.3 mg/dL Normal 1.7-2.3 [facility] Comment on above: Order Comment: Speci men Type: BLOOD SPECIMENOrdering Facility: [facility] Address: [address] [place] [address] Performed By: #### 1 9123-9, ELVAAK, 2777-, 72142-3 ####[facility]ORATORYCLIA [id number] [address] [place] NURSING PROGon 07-24-2021 NURSING PROG Normal [facility] PROCALCITONIN (LAB)on 2021 Procalcitonin [Mass/Vol] 0.15 ng/mL High <0.09 [facility] Comment on above: Order Comment: Speci men Type: BLOOD SPECIMENOrdering Facility: [facility] Address: [address] [place] [address] Result Comment: For a guided interpretation of test results, please visit the [facility] in Procalcitonin Calculator, [email or web address]. Performed By: #### 1 9123-9, KATIE, 2777, 60664-6 ####[facility]ORATORYCLIA [id number] [address] [place] Phosphate SerPl-mCncon 07-24 Phosphate [Mass/Vol] 3.9 mg/dL Normal 2.7-4.8 [facility] Comment on above: Order Comment: Speci men Type: BLOOD SPECIMENOrdering Facility: [facility] Address: [address] [place] [address] Performed By: #### 1 9123-9, KATIE, 2777-, 20953-3 ####[facility]ORATORYCLIA [id number] [address] [place] STREPTOCOCCUS PNEUMONIAE AGo n 07-24-2021 STREPTOCOCCUS PNEUMONIAE AG Normal [facility] Comment on above: Performed By: #### S PNAG ####[facility]ORATORYCLIA [id number] [address] [place] aPTT PPPon 07-24-2021 aPTT Coag (PPP) [Time] 60.8 s High 23.0-32.4 [facility] Comment on above: Order Comment: Speci men Type: BLOOD SPECIMENOrdering Facility: [facility] Address: [address] [place] [address] Performed By: #### 1 4979-9 ####[facility]ATORYCLIA [id number] [address] aPTT Coag (PPP) [Time] 38.2 s High 23.0-32.4 [facility] Comment on above: Order Comment: Speci men Type: BLOOD SPECIMENOrdering Facility: [facility] Address: [address] [place] [address] Performed By: #### 1 4979-9 ####[facility]ATORYCLIA [id number] [address] aPTT Coag (PPP) [Time] 35.9 s High 23.0-32.4 [facility] Comment on above: Order Comment: Speci men Type: BLOOD SPECIMENOrdering Facility: [facility] Address: [address] [place] [address] Performed By: #### 1 4979-9 ####[facility]ATORYCLIA [id number] [address] aPTT Coag (PPP) [Time] 28.8 s Normal 23.0-32.4 [facility] Comment on above: Order Comment: Speci men Type: BLOOD SPECIMENOrdering Facility: [facility] Address: [address] [place] [address] Performed By: #### 1 4979-9 ####[facility]ORATORYCLIA [id number] [address] ALLIED HEALTHon 07-23-2021 ALLIED HEALTH Normal [facility] ALLIED HEALTH Normal [facility] ALLIED HEALTH Normal [facility] ARTERIAL BLOOD GASESon 07-23 Base excess Calc (Bld) [Moles/Vol] 4 mmol/L High 0-2 [facility] Comment on above: Order Comment: Speci men Type: ARTERIAL BLOOD SPECIMENOrdering Facility: [facility] Address: [address] [address] Performed By: #### A LLBG ####[facility]ORATORYCLIA [id number] [address] Body temperature 100.58 [degF] Normal [facility] Comment on above: Order Comment: Speci men Type: ARTERIAL BLOOD SPECIMENOrdering Facility: [facility] Address: [address] [place] [address] Performed By: #### A LLBG ####[facility]ORATORYCLIA [id number] [address] CALCIUM IONIZED, PH CORRECTED 1.26 mmol/L Normal 1.08-1.30 [facility] Comment on above: Order Comment: Speci men Type: ARTERIAL BLOOD SPECIMENOrdering Facility: [facility] Address: [address] [place] [address] Performed By: #### A LLBG ####[facility]ORATORYCLIA [id number] [address] Calcium.ionized (BldV) [Mass/Vol] 1.25 mmol/L Normal 1.08-1.30 [facility] Comment on above: Order Comment: Speci men Type: ARTERIAL BLOOD SPECIMENOrdering Facility: [facility] Address: [address] [place] [address] Performed By: #### A LLBG ####[facility]ORATORYCLIA [id number] [address] Carboxyhemoglobin (BldA) [Mass fraction] 1.2 % Normal 0.0-2.0 [facility] Comment on above: Order Comment: Speci men Type: ARTERIAL BLOOD SPECIMENOrdering Facility: [facility] Address: [address] [place] [address] Result Comment: Carb oxyhemoglobin Reference Range for Smokers: 2.0-8.0% Performed By: #### A LLBG ####[facility]ORATORYCLIA [id number] [address] CO2 (Bld) [Partial pressure] 46 mm Hg Normal 36-46 [facility] Comment on above: Order Comment: Speci men Type: ARTERIAL BLOOD SPECIMENOrdering Facility: [facility] Address: [address] [place] [address] Performed By: #### A LLBG ####[facility]ORATORYCLIA [id number] [address] [place] CO2 [Moles/Vol] 27 mmol/L Normal 22-28 [facility] Comment on above: Order Comment: Speci men Type: ARTERIAL BLOOD SPECIMENOrdering Facility: [facility] Address: [address] [place] [address] Performed By: #### A LLBG ####[facility]ORATORYCLIA [id number] [address] [place] CO2 adjusted to patient's actual temperature (Bld) [Partial pressure] 48 mmHg High 36-46 [facility] Comment on above: Order Comment: Speci men Type: ARTERIAL BLOOD SPECIMENOrdering Facility: [facility] Address: [address] [place] [address] Performed By: #### A LLBG ####[facility]ORATORYCLIA [id number] [address] [place] Glucose [Mass/Vol] 134 mg/dL High 60-105 [facility] Comment on above: Order Comment: Speci men Type: ARTERIAL BLOOD SPECIMENOrdering Facility: [facility] Address: [address] [place] [address] Performed By: #### A LLBG ####[facility]ORATORYCLIA [id number] [place] [address] [place] HCO3 (Bld) [Moles/Vol] 29 mmol/L High 22-26 [facility] Comment on above: Order Comment: Speci men Type: ARTERIAL BLOOD SPECIMENOrdering Facility: [facility] Address: [address] [place] [address] Performed By: #### A LLBG ####[facility]ORATORYCLIA [id number] OF [facility] Hematocrit (Bld) [Volume fraction] 31.4 % Low 39.0-51.0 [facility] Comment on above: Order Comment: Speci men Type: ARTERIAL BLOOD SPECIMENOrdering Facility: [facility] Address: [address] [address] Performed By: #### A LLBG ####[facility]ORATORYCLIA [id number] [address] [place] Hemoglobin (Bld) [Mass/Vol] 10.2 g/dL Low 13.0-17.0 [facility] Comment on above: Order Comment: Speci men Type: ARTERIAL BLOOD SPECIMENOrdering Facility: [facility] Address: [address] [place] [address] Performed By: #### A LLBG ####[facility]ORATORYCLIA [id number] [address] [place] Methemoglobin (Bld) [Mass fraction] % Normal 0.0-1.5 [facility] Comment on above: Order Comment: Speci men Type: ARTERIAL BLOOD SPECIMENOrdering Facility: [facility] Address: [address] [place] [address] Performed By: #### A LLBG ####[facility] LABORATORYCLIA [id number] [place] O2 THERAPY Ventilator Normal [facility] Comment on above: Order Comment: Speci men Type: ARTERIAL BLOOD SPECIMENOrdering Facility: [facility] Address: [address] [address] Performed By: #### A LLBG ####[facility]ORATORYCLIA [id number] [address] [place] Oxygen (Bld) [Partial pressure] 113 mm Hg High 85-95 [facility] Comment on above: Order Comment: Speci men Type: ARTERIAL BLOOD SPECIMENOrdering Facility: [facility] Address: [address] [address] Performed By: #### A LLBG ####[facility]ORATORYCLIA [id number] [address] OF [facility] Oxygen adjusted to patient's actual temperature (Bld) [Partial pressure] 119 mmHg High 85-95 [facility] Comment on above: Order Comment: Speci men Type: ARTERIAL BLOOD SPECIMENOrdering Facility: [facility] Address: [address] [place] [address] Performed By: #### A LLBG ####[facility]ORATORYCLIA [id number] [address] [place] OXYGEN SATURATION, ARTERIAL 98 % Normal 95-98 [facility] Comment on above: Order Comment: Speci men Type: ARTERIAL BLOOD SPECIMENOrdering Facility: [facility] Address: [address] [place] [address] Performed By: #### A LLBG ####[facility]ATORYCLIA [id number] [address] Oxyhemoglobin (BldA) [Mass fraction] 96 % Normal 95-98 [facility] Comment on above: Order Comment: Speci men Type: ARTERIAL BLOOD SPECIMENOrdering Facility: [facility] Address: [address] [place] [address] Performed By: #### A LLBG ####[facility]ATORYCLIA [id number] [address] [place] pH (Bld) 7.41 [pH] Normal 7.35-7.45 [facility] Comment on above: Order Comment: Speci men Type: ARTERIAL BLOOD SPECIMENOrdering Facility: [facility] Address: [address] [place] [address] Performed By: #### A LLBG ####[facility]ATORYCLIA [id number] [address] pH adjusted to patient's actual temperature (Bld) 7.40 Normal 7.35-7.45 [facility] Comment on above: Order Comment: Speci men Type: ARTERIAL BLOOD SPECIMENOrdering Facility: [facility] Address: [address] [place] [address] Performed By: #### A LLBG ####[facility]ATORYCLIA [id number] [address] OF [facility] Potassium [Moles/Vol] 4.3 mmol/L Normal 3.5-5.0 [facility] Comment on above: Order Comment: Speci men Type: ARTERIAL BLOOD SPECIMENOrdering Facility: [facility] Address: [address] [place] [address] Performed By: #### A LLBG ####[facility]ATORYCLIA [id number] [address] [place] Sodium [Moles/Vol] 144 mmol/L Normal 136-144 [facility] Comment on above: Order Comment: Speci men Type: ARTERIAL BLOOD SPECIMENOrdering Facility: [facility] Address: [address] [place] [address] Performed By: #### A LLBG ####[facility]ATORYCLIA [id number] [address] [place] Bacteria CSF Culton 07-24-19 22 Bacteria identified Cx Nom (CSF) Abnormal [facility] Comment on above: Performed By: #### 6 06-4 ####[facility]ATORYCLIA [id number] [address] [place] Basic metabolic 2000 panelon 07-23-2021 Anion gap [Moles/Vol] 12 mmol/L Normal 9-18 [facility] Comment on above: Order Comment: Speci men Type: BLOOD SPECIMENOrdering Facility: [facility] Address: [address] [place] [address] Performed By: #### 2 4321-2 ####[facility]ATORYCLIA [id number] [address] [place] Calcium [Mass/Vol] 9.7 mg/dL Normal 8.5-10.2 [facility] Comment on above: Order Comment: Speci men Type: BLOOD SPECIMENOrdering Facility: [facility] Address: [address] [place] [address] Performed By: #### 2 4321-2 ####[facility]ATORYCLIA [id number] [address] Chloride [Moles/Vol] 105 mmol/L Normal 97-105 [facility] Comment on above: Order Comment: Speci men Type: BLOOD SPECIMENOrdering Facility: [facility] Address: [address] [place] [address] Performed By: #### 2 4321-2 ####[facility]ATORYCLIA [id number] [address] OF [facility] CO2 [Moles/Vol] 28 mmol/L Normal 22-30 [facility] Comment on above: Order Comment: Speci men Type: BLOOD SPECIMENOrdering Facility: [facility] Address: [address] [place] [address] Performed By: #### 2 4321-2 ####[facility]ATORYCLIA [id number] [address] Creatinine [Mass/Vol] 0.78 mg/dL Normal 0.73-1.22 [facility] Comment on above: Order Comment: Speci men Type: BLOOD SPECIMENOrdering Facility: [facility] Address: [address] [place] [address] Performed By: #### 2 4321-2 ####[facility]ATORYCLIA [id number] [address] ESTIMATED GLOMERULAR FILTRATION RATE 97 mL/min/1.73m??? Normal >=60 [facility] Comment on above: Order Comment: Speci men Type: BLOOD SPECIMENOrdering Facility: [facility] Address: [address] [place] [address] Result Comment: Luzmaria mated Glomerular Filtration Rate [...] actual GFR. Performed By: #### 2 4321-2 ####[facility]ORATORYCLIA [id number] [place] [address] [place] Glucose [Mass/Vol] 127 mg/dL High 74-99 [facility] Comment on above: Order Comment: Speci francia Type: BLOOD SPECIMENOrdering Facility: [facility] Address: [address] [place] [address] Result Comment: The [place] Diabetes Association (ADA) provides guidance for cutoff [...] Standards of Medical Care in Diabetes 2016, [place] [employer] Association. Diabetes Care. 2016.39(Suppl 1). Performed By: #### 2 4321-2 ####[facility]ORATORYCLIA [id number] [place] [address] [place] Potassium [Moles/Vol] 4.3 mmol/L Normal 3.7-5.1 [facility] Comment on above: Order Comment: Speci men Type: BLOOD SPECIMENOrdering Facility: [facility] Address: [address] [address] Performed By: #### 2 4321-2 ####[facility]ORATORYCLIA [id number] [place] [address] [place] Sodium [Moles/Vol] 145 mmol/L High 136-144 [facility] Comment on above: Order Comment: Speci men Type: BLOOD SPECIMENOrdering Facility: [facility] Address: [address] [place] [address] Performed By: #### 2 4321-2 ####[facility]ORATORYCLIA [id number] [address] STATES [facility] Urea nitrogen [Mass/Vol] 37 mg/dL High 9-24 [facility] Comment on above: Order Comment: Speci men Type: BLOOD SPECIMENOrdering Facility: [facility] Address: [address] [place] [address] Performed By: #### 2 4321-2 ####[facility]ORATORYCLIA [id number] [address] [place] C diff Tox gens Stl Ql MEGAN+p robeon 07-23-2021 C. difficile toxin genes MEGAN+probe Ql (Stl) Negative Normal Negative for C. difficile toxin by PCR [facility] Comment on above: Order Comment: Speci men Type: STOOL SPECIMENOrdering Facility: [facility] Address: [address] [place] [address] Performed By: #### 5 4067-4 ####[facility]ORATORYCLIA [id number] [address] STATES OF [facility] CBC W Auto Differential pane l (Bld)on 07-23-2021 Basophils (Bld) [#/Vol] 0.07 10*3/uL Normal <0.11 [facility] Comment on above: Order Comment: Speci men Type: BLOOD SPECIMENOrdering Facility: [facility] Address: [address] [place] [address] Performed By: #### 5 7021-8 ####[facility]ATORYCLIA [id number] [address] [place] Basophils/100 WBC (Bld) 0.5 % Normal [facility] Comment on above: Order Comment: Speci men Type: BLOOD SPECIMENOrdering Facility: [facility] Address: [address] [place] [address] Performed By: #### 5 7021-8 ####[facility]ATORYCLIA [id number] [address] [place] Differential cell count method Nom (Bld) Auto Normal [facility] Comment on above: Order Comment: Speci men Type: BLOOD SPECIMENOrdering Facility: [facility] Address: [address] [place] [address] Performed By: #### 5 7021-8 ####[facility]ATORYCLIA [id number] [address] Eosinophils (Bld) [#/Vol] 10*3/uL Normal <0.46 [facility] Comment on above: Order Comment: Speci men Type: BLOOD SPECIMENOrdering Facility: [facility] Address: [address] [place] [address] Performed By: #### 5 7021-8 ####[facility]ATORYCLIA [id number] [address] Eosinophils/100 WBC (Bld) 0.2 % Normal [facility] Comment on above: Order Comment: Speci men Type: BLOOD SPECIMENOrdering Facility: [facility] Address: [address] [place] [address] Performed By: #### 5 7021-8 ####[facility]ORATORYCLIA [id number] [address] [place] [facility] Erythrocyte distribution width (RBC) [Ratio] 16.7 % High 11.5-15.0 [facility] Comment on above: Order Comment: Speci men Type: BLOOD SPECIMENOrdering Facility: [facility] Address: [address] [place] [address] Performed By: #### 5 7021-8 ####[facility]ATORYCLIA [id number] [address] Hematocrit (Bld) [Volume fraction] 32.8 % Low 39.0-51.0 [facility] Comment on above: Order Comment: Speci men Type: BLOOD SPECIMENOrdering Facility: [facility] Address: [address] [place] [address] Performed By: #### 5 7021-8 ####[facility]ATORYCLIA [id number] [address] [place] Hemoglobin (Bld) [Mass/Vol] 9.7 g/dL Low 13.0-17.0 [facility] Comment on above: Order Comment: Speci men Type: BLOOD SPECIMENOrdering Facility: [facility] Address: [address] [place] [address] Performed By: #### 5 7021-8 ####[facility]ORATORYCLIA [id number] [address] IMMATURE GRAN % 0.7 % Normal [facility] Comment on above: Order Comment: Speci men Type: BLOOD SPECIMENOrdering Facility: [facility] Address: [address] [place] [address] Performed By: #### 5 7021-8 ####[facility]ORATORYCLIA [id number] [address] IMMATURE GRAN ABS 0.09 k/uL Normal <0.10 [facility] Comment on above: Order Comment: Speci men Type: BLOOD SPECIMENOrdering Facility: [facility] Address: [address] [place] [address] Performed By: #### 5 7021-8 ####[facility]ORATORYCLIA [id number] [address] [place] Lymphocytes (Bld) [#/Vol] 1.94 10*3/uL Normal 1.00-4.00 [facility] Comment on above: Order Comment: Speci men Type: BLOOD SPECIMENOrdering Facility: [facility] Address: [address] [place] [address] Performed By: #### 5 7021-8 ####[facility]ATORYCLIA [id number] [address] Lymphocytes/100 WBC (Bld) 14.6 % Normal [facility] Comment on above: Order Comment: Speci men Type: BLOOD SPECIMENOrdering Facility: [facility] Address: [address] [place] [address] Performed By: #### 5 7021-8 ####[facility]ORATORYCLIA [id number] [address] MCH (RBC) [Entitic mass] 27.2 pg Normal 26.0-34.0 [facility] Comment on above: Order Comment: Speci men Type: BLOOD SPECIMENOrdering Facility: [facility] Address: [address] [place] [address] Performed By: #### 5 7021-8 ####[facility]ATORYCLIA [id number] [address] [place] MCHC (RBC) [Mass/Vol] 29.6 g/dL Low 30.5-36.0 [facility] Comment on above: Order Comment: Speci men Type: BLOOD SPECIMENOrdering Facility: [facility] Address: [address] [place] [address] Performed By: #### 5 7021-8 ####[facility]ATORYCLIA [id number] [address] OF [facility] MCV (RBC) [Entitic vol] 92.1 fL Normal 80.0-100.0 [facility] Comment on above: Order Comment: Speci men Type: BLOOD SPECIMENOrdering Facility: [facility] Address: [address] [place] [address] Performed By: #### 5 7021-8 ####[facility]ATORYCLIA [id number] [address] OF [facility] Monocytes (Bld) [#/Vol] 0.74 10*3/uL Normal <0.87 [facility] Comment on above: Order Comment: Speci men Type: BLOOD SPECIMENOrdering Facility: [facility] Address: [address] [place] [address] Performed By: #### 5 7021-8 ####[facility]ATORYCLIA [id number] [address] Monocytes/100 WBC (Bld) 5.6 % Normal [facility] Comment on above: Order Comment: Speci men Type: BLOOD SPECIMENOrdering Facility: [facility] Address: [address] [address] Performed By: #### 5 7021-8 ####[facility]ORATORYCLIA [id number] [address] [place] Neutrophils (Bld) [#/Vol] 10.43 10*3/uL High 1.45-7.50 [facility] Comment on above: Order Comment: Speci men Type: BLOOD SPECIMENOrdering Facility: [facility] Address: [address] [place] [address] Performed By: #### 5 7021-8 ####[facility]ATORYCLIA [id number] [address] [place] [facility] Neutrophils/100 WBC (Bld) 78.4 % Normal [facility] Comment on above: Order Comment: Speci men Type: BLOOD SPECIMENOrdering Facility: [facility] Address: [address] [place] [address] Performed By: #### 5 7021-8 ####[facility]ATORYCLIA [id number] [address] [place] Nucleated RBC (Bld) [#/Vol] 10*3/uL Normal <0.01 [facility] Comment on above: Order Comment: Speci men Type: BLOOD SPECIMENOrdering Facility: [facility] Address: [address] [place] [address] Performed By: #### 5 7021-8 ####[facility]ATORYCLIA [id number] [address] [place] Nucleated RBC/100 WBC (Bld) [Ratio] 0.0 /100 WBC Normal [facility] Comment on above: Order Comment: Speci men Type: BLOOD SPECIMENOrdering Facility: [facility] Address: [address] [place] [address] Performed By: #### 5 7021-8 ####[facility]ATORYCLIA [id number] [address] [place] Platelet mean volume (Bld) [Entitic vol] 11.0 fL Normal 9.0-12.7 [facility] Comment on above: Order Comment: Speci men Type: BLOOD SPECIMENOrdering Facility: [facility] Address: [address] [place] [address] Performed By: #### 5 7021-8 ####[facility]ATORYCLIA [id number] [address] [place] Platelets (Bld) [#/Vol] 381 10*3/uL Normal 150-400 [facility] Comment on above: Order Comment: Speci men Type: BLOOD SPECIMENOrdering Facility: [facility] Address: [address] [place] [address] Performed By: #### 5 7021-8 ####[facility]ATORYCLIA [id number] [place] [address] [place] RBC (Bld) [#/Vol] 3.56 10*6/uL Low 4.20-6.00 [facility] Comment on above: Order Comment: Speci men Type: BLOOD SPECIMENOrdering Facility: [facility] Address: [address] [place] [address] Performed By: #### 5 7021-8 ####[facility]ATORYCLIA [id number] [address] OF [facility] WBC (Bld) [#/Vol] 13.29 10*3/uL High 3.70-11.00 [facility] Comment on above: Order Comment: Speci men Type: BLOOD SPECIMENOrdering Facility: [facility] Address: [address] [place] [address] Performed By: #### 5 7021-8 ####[facility]ATORYCLIA [id number] [address] OF [facility] CONSULT PROGon 07-23-2021 CONSULT PROG Normal [facility] CONSULT PROG Normal [facility] CSF MANUAL DIFFon 07-23-2021 DIF TTL, CSF 100 cells counted Normal [facility] Comment on above: Order Comment: Speci men Type: CEREBROSPINAL FLUIDOrdering Facility: [facility] Address: [address] [place] [address] Performed By: #### L [id number], TAZ0156, 46140-3 ####[facility]ATORYCLIA [id number] [place] [address] [place] LYMPH%, CSF 2 % Low 50-90 [facility] Comment on above: Order Comment: Speci men Type: CEREBROSPINAL FLUIDOrdering Facility: [facility] Address: [address] [place] [address] Performed By: #### L [id number], WPI4839, 39960-1 ####[facility]ATORYCLIA [id number] [place] [address] [place] MONO%, CSF 9 % Low 10-50 [facility] Comment on above: Order Comment: Speci men Type: CEREBROSPINAL FLUIDOrdering Facility: [facility] Address: [address] [place] [address] Performed By: #### L [id number], [id number], 99760-0 ####[facility]ATORYCLIA [id number] [place] [address] [place] NEUT%, CSF 89 % High 0-3 [facility] Comment on above: Order Comment: Speci men Type: CEREBROSPINAL FLUIDOrdering Facility: [facility] Address: [address] [place] [address] Performed By: #### L [id number], [id number], 46857-3 ####[facility]ATORYCLIA [id number] [address] CSF PATHOLOGIST INTERP (LAB REFLEX ORDER-NO BILL)on 07-23-2021 CSF STAFF REVIEW Negative for maligna nt cells. Numerous bacterial organisms present, cocci in pairs and chains. Recommend correlation with CSF culture results. Normal [facility] Comment on above: Order Comment: Speci men Type: CEREBROSPINAL FLUIDOrdering Facility: [facility] Address: [address] [place] [address] Performed By: #### L [id number], AJL6927, 76120-1 ####[facility]ATORYCLIA [id number] [address] Pathologist name Reviewed by Amador Stevens MD Normal [facility] Comment on above: Order Comment: Speci men Type: CEREBROSPINAL FLUIDOrdering Facility: [facility] Address: [address] [place] [address] Performed By: #### L [id number], NSI4043, 01075-5 ####[facility]ATORYCLIA [id number] [address] [place] CT BRAIN WO IVCONon 07-24-19 CT BRAIN WO IVCON Normal [facility] Cell count panel (CSF)on Clarity (CSF) Clear Normal Clear [facility] Comment on above: Order Comment: Speci men Type: CEREBROSPINAL FLUIDOrdering Facility: [facility] Address: [address] [place] [address] Performed By: #### L PA1649, ZHG9431, 73818-8 ####[facility]ATORYCLIA [id number] [address] Clarity (Unsp spec) Not Indicated Normal Clear [facility] Comment on above: Order Comment: Speci men Type: CEREBROSPINAL FLUIDOrdering Facility: [facility] Address: [address] [place] [address] Performed By: #### L XH1194, CTJ9690, 13717-6 ####[facility]ATORYCLIA [id number] [address] OF [facility] Color (CSF) Colorless Normal Colorless [facility] Comment on above: Order Comment: Speci men Type: CEREBROSPINAL FLUIDOrdering Facility: [facility] Address: [address] [place] [address] Performed By: #### L TJ5298, BKA8723, 38703-4 ####[facility]ATORYCLIA [id number] [address] [place] Color (Spun CSF) Not Indicated Normal Colorless [facility] Comment on above: Order Comment: Speci men Type: CEREBROSPINAL FLUIDOrdering Facility: [facility] Address: [address] [place] [address] Performed By: #### L OL2635, SLB8170, 28296-9 ####[facility]ATORYCLIA [id number] [address] [place] CSF TUBE [employer] Normal [facility] Comment on above: Order Comment: Speci men Type: CEREBROSPINAL FLUIDOrdering Facility: [facility] Address: [address] [place] [address] Performed By: #### L [id number], IRK8069, 52199-8 ####[facility]ORATORYCLIA [id number] [place] [address] [place] RBC Manual cnt (CSF) [#/Vol] 7 cells/uL High 0-5 [facility] Comment on above: Order Comment: Speci men Type: CEREBROSPINAL FLUIDOrdering Facility: [facility] Address: [address] [place] [address] Performed By: #### L KH5882, EEJ1270, 92300-2 ####[facility]ORATORYCLIA [id number] [address] STATES OF [facility] WBC Manual cnt (CSF) [#/Vol] 193 cells/uL High 0-5 [facility] Comment on above: Order Comment: Speci men Type: CEREBROSPINAL FLUIDOrdering Facility: [facility] Address: [address] [place] [address] Performed By: #### L [id number], DUK9865, 52215-7 ####[facility]ORATORYCLIA [id number] [place] [address] [place] Glucose CSF-mCncon 2 Glucose (CSF) [Mass/Vol] 81 mg/dL High 40-70 [facility] Comment on above: Order Comment: Speci men Type: CEREBROSPINAL FLUIDOrdering Facility: [facility] Address: [address] [place] [address] Result Comment: Lumb ar CSF glucose values of healthy patients are approximately 60% of the plasma values and must always be compared with a concurrently measured plasma value for adequate clinical interpretation.References: 1. Glucose HK (GLUC3) [package insert V 12.0 [place]]. [employer], [place], [place]. September 2015. 2. Michelle Moore, Loki HGarfield (2015). Chapter 7: Glucose and Lactate. Marianela Rothman.(eds.), Cerebrospinal Fluid in Clinical Neurology. [place]: [employer]. Performed By: #### 2 342-4, 2880-3 ####[facility]ATORYCLIA [id number] [address] NURSING PROGon 07-23-2021 NURSING PROG Normal [facility] NURSING PROG Normal [facility] Prot CSF-mCncon 07-23-2021 Protein (CSF) [Mass/Vol] 68 mg/dL High 15-45 [facility] Comment on above: Order Comment: Speci men Type: CEREBROSPINAL FLUIDOrdering Facility: [facility] Address: [address] [place] [address] Performed By: #### 2 342-4, 2880-3 ####[facility]ATORYCLIA [id number] [address] Urinalysis complete panel (U )on 07-23-2021 Bilirubin Ql (U) Negative Normal Negative [facility] Comment on above: Order Comment: Speci men Type: URINE SPECIMENOrdering Facility: [facility] Address: [address] [place] [address] Performed By: #### 2 4356-8 ####[facility]ATORYCLIA [id number] [address] Clarity (Unsp spec) Clear Normal Clear [facility] Comment on above: Order Comment: Speci men Type: URINE SPECIMENOrdering Facility: [facility] Address: [address] [place] [address] Performed By: #### 2 4356-8 ####[facility]ATORYCLIA [id number] [address] Color (U) Light Yellow Normal yellow [facility] Comment on above: Order Comment: Speci men Type: URINE SPECIMENOrdering Facility: [facility] Address: [address] [place] [address] Performed By: #### 2 4356-8 ####[facility] LABORATORYCLIA [id number] [address] [place] Glucose Test strip (U) [Mass/Vol] Negative Normal Negative [facility] Comment on above: Order Comment: Speci men Type: URINE SPECIMENOrdering Facility: [facility] Address: [address] [place] [address] Performed By: #### 2 4356-8 ####[facility]ATORYCLIA [id number] [address] Hemoglobin Ql (U) Negative Normal Negative [facility] Comment on above: Order Comment: Speci men Type: URINE SPECIMENOrdering Facility: [facility] Address: [address] [place] [address] Performed By: #### 2 4356-8 ####[facility]ORATORYCLIA [id number] [address] [place] Ketones Ql (U) Negative Normal Negative [facility] Comment on above: Order Comment: Speci men Type: URINE SPECIMENOrdering Facility: [facility] Address: [address] [place] [address] Performed By: #### 2 4356-8 ####[facility]ORATORYCLIA [id number] [address] [place] Leukocyte esterase Test strip Ql (U) Negative Normal Negative [facility] Comment on above: Order Comment: Speci men Type: URINE SPECIMENOrdering Facility: [facility] Address: [address] [place] [address] Performed By: #### 2 4356-8 ####[facility] LABORATORYCLIA [id number] [place] [address] [place] [place] Nitrite Ql (U) Negative Normal Negative [facility] Comment on above: Order Comment: Speci men Type: URINE SPECIMENOrdering Facility: [facility] Address: [address] [place] [address] Performed By: #### 2 4356-8 ####[facility]ATORYCLIA [id number] [address] pH (U) 6.0 [pH] Normal 5.0-8.0 [facility] Comment on above: Order Comment: Speci men Type: URINE SPECIMENOrdering Facility: [facility] Address: [address] [place] [address] Performed By: #### 2 4356-8 ####[facility]ATORYCLIA [id number] [address] [facility] Protein (U) [Mass/Vol] 1+ Abnormal Negative [facility] Comment on above: Order Comment: Speci men Type: URINE SPECIMENOrdering Facility: [facility] Address: [address] [place] [address] Performed By: #### 2 4356-8 ####[facility]ATORYCLIA [id number] [address] RBC LM.HPF (Urine sed) [#/Area] 0-3 /HPF Normal 0-3 /HPF [facility] Comment on above: Order Comment: Speci men Type: URINE SPECIMENOrdering Facility: [facility] Address: [address] [place] [address] Performed By: #### 2 4356-8 ####[facility]ATORYCLIA [id number] [address] [place] Specific gravity (U) [Rel density] 1.018 Normal 1.005-1.030 [facility] Comment on above: Order Comment: Speci men Type: URINE SPECIMENOrdering Facility: [facility] Address: [address] [place] [address] Performed By: #### 2 4356-8 ####[facility]ATORYCLIA [id number] [address] Urobilinogen Ql (U) Normal Normal Negative [facility] Comment on above: Order Comment: Speci men Type: URINE SPECIMENOrdering Facility: [facility] Address: [address] [place] [address] Performed By: #### 2 4356-8 ####[facility]ATORYCLIA [id number] [address] WBC LM.HPF (Urine sed) [#/Area] 0-5 /HPF Normal 0-5 /HPF [facility] Comment on above: Order Comment: Speci men Type: URINE SPECIMENOrdering Facility: [facility] Address: [address] [place] [address] Performed By: #### 2 4356-8 ####[facility]ATORYCLIA [id number] [address] Vancomycin random [Mass/Vol] on 07-23-2021 Vancomycin [Mass/Vol] 12.9 ug/mL Normal 10.0-20.0 [facility] Comment on above: Order Comment: Speci men Type: BLOOD SPECIMENOrdering Facility: [facility] Address: [address] [place] [address] Result Comment: Refe rence ranges and high/low indicator flags are provided as general guidelines only. The treating physician must determine appropriate target levels/dosing based on the specific clinical situation. Performed By: #### 4 091-5 ####[facility]ORATORYCLIA [id number] [address] OF [facility] XR CHEST 1V FRONTALon 2021 XR CHEST 1V FRONTAL Normal [facility] XR CHEST 1V FRONTAL Normal [facility] aPTT PPPon 07-23-2021 aPTT Coag (PPP) [Time] 32.3 s Normal 23.0-32.4 [facility] Comment on above: Order Comment: Speci men Type: BLOOD SPECIMENOrdering Facility: [facility] Address: [address] [place] [address] Performed By: #### 1 4979-9 ####[facility]ATORYCLIA [id number] [address] [place] aPTT Coag (PPP) [Time] 57.9 s High 23.0-32.4 [facility] Comment on above: Order Comment: Speci men Type: BLOOD SPECIMENOrdering Facility: [facility] Address: [address] [place] [address] Performed By: #### 1 4979-9 ####[facility]ATORYCLIA [id number] [address] aPTT Coag (PPP) [Time] 46.3 s High 23.0-32.4 [facility] Comment on above: Order Comment: Speci men Type: BLOOD SPECIMENOrdering Facility: [facility] Address: [address] [place] [address] Performed By: #### 1 4979-9 ####[facility]ORATORYCLIA [id number] [place] [address] [place] Basic metabolic 2000 panelon 07-22-2021 Anion gap [Moles/Vol] 8 mmol/L Low -18 [facility] Comment on above: Order Comment: Speci men Type: BLOOD SPECIMENOrdering Facility: [facility] Address: [address] [place] [address] Performed By: #### 2 4321-2 ####[facility]ORATORYCLIA [id number] [place] [address] [place] Calcium [Mass/Vol] 9.5 mg/dL Normal 8.5-10.2 [facility] Comment on above: Order Comment: Speci men Type: BLOOD SPECIMENOrdering Facility: [facility] Address: [address] [place] [address] Performed By: #### 2 4321-2 ####[facility]ORATORYCLIA [id number] [address] [place] Chloride [Moles/Vol] 105 mmol/L Normal 97-105 [facility] Comment on above: Order Comment: Speci men Type: BLOOD SPECIMENOrdering Facility: [facility] Address: [address] [place] [address] Performed By: #### 2 4321-2 ####[facility]ORATORYCLIA [id number] [place] [address] [place] CO2 [Moles/Vol] 32 mmol/L High 22-30 [facility] Comment on above: Order Comment: Speci men Type: BLOOD SPECIMENOrdering Facility: [facility] Address: [address] [place] [address] Performed By: #### 2 4321-2 ####[facility]ORATORYCLIA [id number] [address] STATES OF [facility] Creatinine [Mass/Vol] 0.75 mg/dL Normal 0.73-1.22 [facility] Comment on above: Order Comment: Speci men Type: BLOOD SPECIMENOrdering Facility: [facility] Address: [address] [place] [address] Performed By: #### 2 4321-2 ####[facility]ORATORYCLIA [id number] [address] ESTIMATED GLOMERULAR FILTRATION RATE 98 mL/min/1.73m??? Normal >=60 [facility] Comment on above: Order Comment: Speci men Type: BLOOD SPECIMENOrdering Facility: [facility] Address: [address] [place] [address] Result Comment: Luzmaria mated Glomerular Filtration Rate [...] actual GFR. Performed By: #### 2 4321-2 ####[facility]ORATORYCLIA [id number] [address] [place] Glucose [Mass/Vol] 128 mg/dL High 74-99 [facility] Comment on above: Order Comment: Speci men Type: BLOOD SPECIMENOrdering Facility: [facility] Address: [address] [place] [address] Result Comment: The [place] Diabetes Association (ADA) provides guidance for cutoff [...] Standards of Medical Care in Diabetes 2016, [place] [employer]. Diabetes Care. 2016.39(Suppl 1). Performed By: #### 2 4321-2 ####[facility]ORATORYCLIA [id number] [place] [address] [place] Potassium [Moles/Vol] 3.7 mmol/L Normal 3.7-5.1 [facility] Comment on above: Order Comment: Speci [facility] Type: BLOOD SPECIMENOrdering Facility: [facility] Address: [address] [place] [address] Performed By: #### 2 4321-2 ####[facility]ORATORYCLIA [id number] [place] [address] [place] Sodium [Moles/Vol] 145 mmol/L High 136-144 [facility] Comment on above: Order Comment: Speci men Type: BLOOD SPECIMENOrdering Facility: [facility] Address: [address] [address] Performed By: #### 2 4321-2 ####[facility]ORATORYCLIA [id number] [place] [address] [place] Urea nitrogen [Mass/Vol] 39 mg/dL High 9-24 [facility] Comment on above: Order Comment: Speci men Type: BLOOD SPECIMENOrdering Facility: [facility] Address: [address] [address] Performed By: #### 2 4321-2 ####[facility]ORATORYCLIA [id number] [place] [id number] [facility] CASE MANAGEMon 07-22-2021 CASE MANAGEM Normal [facility] CBC W Auto Differential pane l (Bld)on 07-22-2021 Basophils (Bld) [#/Vol] 0.06 10*3/uL Normal <0.11 [facility] Comment on above: Order Comment: Speci men Type: BLOOD SPECIMENOrdering Facility: [facility] Address: [address] [place] [address] Performed By: #### 5 7021-8 ####[facility]ATORYCLIA [id number] [address] Basophils/100 WBC (Bld) 0.5 % Normal [facility] Comment on above: Order Comment: Speci men Type: BLOOD SPECIMENOrdering Facility: [facility] Address: [address] [place] [address] Performed By: #### 5 7021-8 ####[facility]ORATORYCLIA [id number] [address] Differential cell count method Nom (Bld) Auto Normal [facility] Comment on above: Order Comment: Speci men Type: BLOOD SPECIMENOrdering Facility: [facility] Address: [address] [place] [address] Performed By: #### 5 7021-8 ####[facility]ORATORYCLIA [id number] [address] [place] Eosinophils (Bld) [#/Vol] 0.44 10*3/uL Normal <0.46 [facility] Comment on above: Order Comment: Speci men Type: BLOOD SPECIMENOrdering Facility: [facility] Address: [address] [place] [address] Performed By: #### 5 7021-8 ####[facility]ORATORYCLIA [id number] [address] Eosinophils/100 WBC (Bld) 3.9 % Normal [facility] Comment on above: Order Comment: Speci men Type: BLOOD SPECIMENOrdering Facility: [facility] Address: [address] [place] [address] Performed By: #### 5 7021-8 ####[facility]ORATORYCLIA [id number] [address] Erythrocyte distribution width (RBC) [Ratio] 17.0 % High 11.5-15.0 [facility] Comment on above: Order Comment: Speci men Type: BLOOD SPECIMENOrdering Facility: [facility] Address: [address] [place] [address] Performed By: #### 5 7021-8 ####[facility]ORATORYCLIA [id number] [address] Hematocrit (Bld) [Volume fraction] 32.0 % Low 39.0-51.0 [facility] Comment on above: Order Comment: Speci men Type: BLOOD SPECIMENOrdering Facility: [facility] Address: [address] [place] [address] Performed By: #### 5 7021-8 ####[facility]ORATORYCLIA [id number] [address] Hemoglobin (Bld) [Mass/Vol] 9.3 g/dL Low 13.0-17.0 [facility] Comment on above: Order Comment: Speci men Type: BLOOD SPECIMENOrdering Facility: [facility] Address: [address] [place] [address] Performed By: #### 5 7021-8 ####[facility]ORATORYCLIA [id number] [address] [place] [facility] IMMATURE GRAN % 0.5 % Normal [facility] Comment on above: Order Comment: Speci men Type: BLOOD SPECIMENOrdering Facility: [facility] Address: [address] [place] [address] Performed By: #### 5 7021-8 ####[facility]ORATORYCLIA [id number] [address] IMMATURE GRAN ABS 0.06 k/uL Normal <0.10 [facility] Comment on above: Order Comment: Speci men Type: BLOOD SPECIMENOrdering Facility: [facility] Address: [address] [place] [address] Performed By: #### 5 7021-8 ####[facility]ORATORYCLIA [id number] [address] [place] Lymphocytes (Bld) [#/Vol] 1.83 10*3/uL Normal 1.00-4.00 [facility] Comment on above: Order Comment: Speci men Type: BLOOD SPECIMENOrdering Facility: [facility] Address: [address] [place] [address] Performed By: #### 5 7021-8 ####[facility]ATORYCLIA [id number] [address] Lymphocytes/100 WBC (Bld) 16.1 % Normal [facility] Comment on above: Order Comment: Speci men Type: BLOOD SPECIMENOrdering Facility: [facility] Address: [address] [place] [address] Performed By: #### 5 7021-8 ####[facility]ATORYCLIA [id number] [address] MCH (RBC) [Entitic mass] 27.0 pg Normal 26.0-34.0 [facility] Comment on above: Order Comment: Speci men Type: BLOOD SPECIMENOrdering Facility: [facility] Address: [address] [place] [address] Performed By: #### 5 7021-8 ####[facility]ORATORYCLIA [id number] [address] MCHC (RBC) [Mass/Vol] 29.1 g/dL Low 30.5-36.0 [facility] Comment on above: Order Comment: Speci men Type: BLOOD SPECIMENOrdering Facility: [facility] Address: [address] [place] [address] Performed By: #### 5 7021-8 ####[facility]ORATORYCLIA [id number] [place] [address] [place] MCV (RBC) [Entitic vol] 92.8 fL Normal 80.0-100.0 [facility] Comment on above: Order Comment: Speci men Type: BLOOD SPECIMENOrdering Facility: [facility] Address: [address] [place] [address] Performed By: #### 5 7021-8 ####[facility]ATORYCLIA [id number] [address] [place] Monocytes (Bld) [#/Vol] 0.87 10*3/uL High <0.87 [facility] Comment on above: Order Comment: Speci men Type: BLOOD SPECIMENOrdering Facility: [facility] Address: [address] [place] [address] Performed By: #### 5 7021-8 ####[facility]ATORYCLIA [id number] [address] [place] Monocytes/100 WBC (Bld) 7.6 % Normal [facility] Comment on above: Order Comment: Speci men Type: BLOOD SPECIMENOrdering Facility: [facility] Address: [address] [place] [address] Performed By: #### 5 7021-8 ####[facility]ORATORYCLIA [id number] [place] [address] [place] Neutrophils (Bld) [#/Vol] 8.12 10*3/uL High 1.45-7.50 [facility] Comment on above: Order Comment: Speci men Type: BLOOD SPECIMENOrdering Facility: [facility] Address: [address] [place] [address] Performed By: #### 5 7021-8 ####[facility]ORATORYCLIA [id number] [address] [place] Neutrophils/100 WBC (Bld) 71.4 % Normal [facility] Comment on above: Order Comment: Speci men Type: BLOOD SPECIMENOrdering Facility: [facility] Address: [address] Performed By: #### 5 7021-8 ####[facility]ORATORYCLIA [id number] [address] [place] Nucleated RBC (Bld) [#/Vol] 10*3/uL Normal <0.01 [facility] Comment on above: Order Comment: Speci men Type: BLOOD SPECIMENOrdering Facility: [facility] Address: [address] [place], [place] [address] Performed By: #### 5 7021-8 ####[facility]ORATORYCLIA [id number] [address] [place] Nucleated RBC/100 WBC (Bld) [Ratio] 0.0 /100 WBC Normal [facility] Comment on above: Order Comment: Speci men Type: BLOOD SPECIMENOrdering Facility: [facility] Address: [address] [place] [address] Performed By: #### 5 7021-8 ####[facility]ORATORYCLIA [id number] [address] [place] Platelet mean volume (Bld) [Entitic vol] 10.8 fL Normal 9.0-12.7 [facility] Comment on above: Order Comment: Speci men Type: BLOOD SPECIMENOrdering Facility: [facility] Address: [address] Performed By: #### 5 7021-8 ####[facility]ORATORYCLIA [id number] [address] [place] Platelets (Bld) [#/Vol] 362 10*3/uL Normal 150-400 [facility] Comment on above: Order Comment: Speci men Type: BLOOD SPECIMENOrdering Facility: [facility] Address: [address] [place] [address] Performed By: #### 5 7021-8 ####[facility]ORATORYCLIA [id number] [place] [address] [place] RBC (Bld) [#/Vol] 3.45 10*6/uL Low 4.20-6.00 [facility] Comment on above: Order Comment: Speci men Type: BLOOD SPECIMENOrdering Facility: [facility] Address: [address] [place] [address] Performed By: #### 5 7021-8 ####[facility]ORATORYCLIA [id number] [place] [address] [place] [facility] WBC (Bld) [#/Vol] 11.38 10*3/uL High 3.70-11.00 [facility] Comment on above: Order Comment: Speci men Type: BLOOD SPECIMENOrdering Facility: [facility] Address: [address] [place] [address] Performed By: #### 5 7021-8 ####[facility]ORATORYCLIA [id number] [address] [facility] Magnesium [Mass/Vol] 2.3 mg/dL Normal 1.7-2.3 [facility] Comment on above: Order Comment: Speci men Type: BLOOD SPECIMENOrdering Facility: [facility] Address: [address] [place] [address] Performed By: #### 1 9123-9, 2777-1, 20131-6 ####[facility]ORATORYCLIA [id number] [place] [address] [place] NT-proBNP SerPl-mCncon 07-22 Natriuretic peptide.B prohormone N-Terminal [Mass/Vol] 328 pg/mL High <125 [facility] Comment on above: Order Comment: Speci men Type: BLOOD SPECIMENOrdering Facility: [facility] Address: [address] [place] [address] Performed By: #### 1 9123-9, 2777-1, 33304-8 ####[facility]ORATORYCLIA [id number] [address] STATES OF [facility] NURSING PROGon 07-22-2021 NURSING PROG Normal [facility] NUTRITIONon 07-22-2021 NUTRITION Normal [facility] Phosphate SerPl-mCncon 07-22 Phosphate [Mass/Vol] 3.5 mg/dL Normal 2.7-4.8 [facility] Comment on above: Order Comment: Speci men Type: BLOOD SPECIMENOrdering Facility: [facility] Address: [address] [place] [address] Performed By: #### 1 9123-9, 2777-1, 68800-7 ####[facility]ATORYCLIA [id number] [address] THERAPY NTon 07-22-2021 THERAPY NT Normal [facility] THERAPY NT Normal [facility] aPTT PPPon 07-22-2021 aPTT Coag (PPP) [Time] 50.1 s High 23.0-32.4 [facility] Comment on above: Order Comment: Speci men Type: BLOOD SPECIMENOrdering Facility: [facility] Address: [address] [place] [address] Performed By: #### 1 4979-9 ####[facility]ORATORYCLIA [id number] [address] STATES OF [facility] ALLIED HEALTHon 07-21-2021 ALLIED HEALTH Normal [facility] Bacteria Spec Resp Culton Bacteria identified Respiratory culture Nom (Unsp spec) Abnormal [facility] Comment on above: Performed By: #### 3 2355-0 ####[facility]ORATORYCLIA [id number] [place] [address] [place] Basic metabolic 2000 panelon 07-21-2021 Anion gap [Moles/Vol] 9 mmol/L Normal 01-22 [facility] Comment on above: Order Comment: Speci men Type: BLOOD SPECIMENOrdering Facility: [facility] Address: [address] [place] [address] Performed By: #### 1 9123-9, 2777-1, 34204-0 ####[facility]ORATORYCLIA [id number] [place] [address] [place] Calcium [Mass/Vol] 9.9 mg/dL Normal 8.5-10.2 [facility] Comment on above: Order Comment: Speci men Type: BLOOD SPECIMENOrdering Facility: [facility] Address: [address] [place] [address] Performed By: #### 1 9123-9, 27711-04, 41454-8 ####[facility]ORATORYCLIA [id number] [place] [address] [place] Chloride [Moles/Vol] 103 mmol/L Normal 97-105 [facility] Comment on above: Order Comment: Speci men Type: BLOOD SPECIMENOrdering Facility: [facility] Address: [address] [place] [address] Performed By: #### 1 9123-9, 27711-04, 65095-0 ####[facility]ORATORYCLIA [id number] [address] [place] CO2 [Moles/Vol] 33 mmol/L High 22-30 [facility] Comment on above: Order Comment: Speci men Type: BLOOD SPECIMENOrdering Facility: [facility] Address: [address] [place] [address] Performed By: #### 1 9123-9, 27711-04, 93074-1 ####[facility]ORATORYCLIA [id number] [place] [address] [place] Creatinine [Mass/Vol] 0.80 mg/dL Normal 0.73-1.22 [facility] Comment on above: Order Comment: Speci men Type: BLOOD SPECIMENOrdering Facility: [facility] Address: [address] [place] [address] Performed By: #### 1 9123-9, 2777, 20128-9 ####[facility]ORATORYCLIA [id number] [address] [place] ESTIMATED GLOMERULAR FILTRATION RATE 96 mL/min/1.73m??? Normal >=60 [facility] Comment on above: Order Comment: Shira feldman Type: BLOOD SPECIMENOrdering Facility: [facility] Address: [address] [place] [address] Result Comment: Luzmaria mated Glomerular Filtration Rate [...] GFR. Performed By: #### 1 9123-9, 2777-1, 44964-3 ####[facility]ITALCLIA [id number] [place] [address] [place] Glucose [Mass/Vol] 148 mg/dL High 74-99 [facility] Comment on above: Order Comment: Shira feldman Type: BLOOD SPECIMENOrdering Facility: [facility] Address: [address] [place] [address] Result Comment: The [place] Diabetes Association (ADA) provides guidance for cutoff [...] Standards of Medical Care in Diabetes 2016, [place] [employer]. Diabetes Care. 2016.39(Suppl 1). Performed By: #### 1 9123-9, 2777-1, 88613-1 ####[facility]ORATORYCLIA [id number] [place] [address] [place] Potassium [Moles/Vol] 4.1 mmol/L Normal 3.7-5.1 [facility] Comment on above: Order Comment: Shira [facility] Type: BLOOD SPECIMENOrdering Facility: [facility] Address: [address] [place] [address] Performed By: #### 1 9123-9, 2777-, 74416-3 ####[facility]ORATORYCLIA [id number] [address] STATES [facility] Sodium [Moles/Vol] 145 mmol/L High 136-144 [facility] Comment on above: Order Comment: Speci men Type: BLOOD SPECIMENOrdering Facility: [facility] Address: [address] [place] [address] Performed By: #### 1 9123-9, 2777, 79397-3 ####[facility]ORATORYCLIA [id number] [address] STATES OF [facility] Urea nitrogen [Mass/Vol] 40 mg/dL High 9-24 [facility] Comment on above: Order Comment: Speci men Type: BLOOD SPECIMENOrdering Facility: [facility] Address: [address] [place] [address] Performed By: #### 1 9123-9, 2777, 39642-7 ####[facility]ORATORYCLIA [id number] [address] STATES OF [facility] CBC W Auto Differential pane l (Bld)on 07-21-2021 Basophils (Bld) [#/Vol] 0.06 10*3/uL Normal <0.11 [facility] Comment on above: Order Comment: Speci men Type: BLOOD SPECIMENOrdering Facility: [facility] Address: [address] [place] [address] Performed By: #### 5 7021-8 ####[facility]ORATORYCLIA [id number] [address] Basophils/100 WBC (Bld) 0.4 % Normal [facility] Comment on above: Order Comment: Speci men Type: BLOOD SPECIMENOrdering Facility: [facility] Address: [address] [place] [address] Performed By: #### 5 7021-8 ####[facility] LABORATORYCLIA [id number] [address] [place] Differential cell count method Nom (Bld) Auto Normal [facility] Comment on above: Order Comment: Speci men Type: BLOOD SPECIMENOrdering Facility: [facility] Address: [address] [place] [address] Performed By: #### 5 7021-8 ####[facility]ORATORYCLIA [id number] [address] [place] Eosinophils (Bld) [#/Vol] 0.04 10*3/uL Normal <0.46 [facility] Comment on above: Order Comment: Speci men Type: BLOOD SPECIMENOrdering Facility: [facility] Address: [address] [place] [address] Performed By: #### 5 7021-8 ####[facility]ATORYCLIA [id number] Eosinophils/100 WBC (Bld) 0.3 % Normal [facility] Comment on above: Order Comment: Speci men Type: BLOOD SPECIMENOrdering Facility: [facility] Address: [address] [place] [address] Performed By: #### 5 7021-8 ####[facility]ATORYCLIA [id number] [place] Erythrocyte distribution width (RBC) [Ratio] 17.0 % High 11.5-15.0 [facility] Comment on above: Order Comment: Speci men Type: BLOOD SPECIMENOrdering Facility: [facility] Address: [address] [place] [address] Performed By: #### 5 7021-8 ####[facility]ATORYCLIA [id number] [address] Hematocrit (Bld) [Volume fraction] 33.1 % Low 39.0-51.0 [facility] Comment on above: Order Comment: Speci men Type: BLOOD SPECIMENOrdering Facility: [facility] Address: [address] [address] Performed By: #### 5 7021-8 ####[facility]ORATORYCLIA [id number] [address] [place] Hemoglobin (Bld) [Mass/Vol] 9.7 g/dL Low 13.0-17.0 [facility] Comment on above: Order Comment: Speci men Type: BLOOD SPECIMENOrdering Facility: [facility] Address: [address] [place] [address] Performed By: #### 5 7021-8 ####[facility]ATORYCLIA [id number] [address] IMMATURE GRAN % 0.5 % Normal [facility] Comment on above: Order Comment: Speci men Type: BLOOD SPECIMENOrdering Facility: [facility] Address: [address] [place] [address] Performed By: #### 5 7021-8 ####[facility]ATORYCLIA [id number] [address] IMMATURE GRAN ABS 0.07 k/uL Normal <0.10 [facility] Comment on above: Order Comment: Speci men Type: BLOOD SPECIMENOrdering Facility: [facility] Address: [address] [place] [address] Performed By: #### 5 7021-8 ####[facility]ATORYCLIA [id number] [address] [place] Lymphocytes (Bld) [#/Vol] 1.99 10*3/uL Normal 1.00-4.00 [facility] Comment on above: Order Comment: Speci men Type: BLOOD SPECIMENOrdering Facility: [facility] Address: [address] [place] [address] Performed By: #### 5 7021-8 ####[facility]ATORYCLIA [id number] [address] [place] Lymphocytes/100 WBC (Bld) 13.4 % Normal [facility] Comment on above: Order Comment: Speci men Type: BLOOD SPECIMENOrdering Facility: [facility] Address: [address] [place] [address] Performed By: #### 5 7021-8 ####[facility]ATORYCLIA [id number] [address] MCH (RBC) [Entitic mass] 27.2 pg Normal 26.0-34.0 [facility] Comment on above: Order Comment: Speci men Type: BLOOD SPECIMENOrdering Facility: [facility] Address: [address] [place] [address] Performed By: #### 5 7021-8 ####[facility]ATORYCLIA [id number] [address] MCHC (RBC) [Mass/Vol] 29.3 g/dL Low 30.5-36.0 [facility] Comment on above: Order Comment: Speci men Type: BLOOD SPECIMENOrdering Facility: [facility] Address: [address] [place] [address] Performed By: #### 5 7021-8 ####[facility]ATORYCLIA [id number] [address] MCV (RBC) [Entitic vol] 92.7 fL Normal 80.0-100.0 [facility] Comment on above: Order Comment: Speci men Type: BLOOD SPECIMENOrdering Facility: [facility] Address: [address] [place] [address] Performed By: #### 5 7021-8 ####[facility]ATORYCLIA [id number] [address] Monocytes (Bld) [#/Vol] 1.10 10*3/uL High <0.87 [facility] Comment on above: Order Comment: Speci men Type: BLOOD SPECIMENOrdering Facility: [facility] Address: [address] [place] [address] Performed By: #### 5 7021-8 ####[facility]ATORYCLIA [id number] [address] [place] Monocytes/100 WBC (Bld) 7.4 % Normal [facility] Comment on above: Order Comment: Speci men Type: BLOOD SPECIMENOrdering Facility: [facility] Address: [address] [place] [address] Performed By: #### 5 7021-8 ####[facility]ORATORYCLIA [id number] [place] [address] [place] Neutrophils (Bld) [#/Vol] 11.61 10*3/uL High 1.45-7.50 [facility] Comment on above: Order Comment: Speci men Type: BLOOD SPECIMENOrdering Facility: [facility] Address: [address] [place] [address] Performed By: #### 5 7021-8 ####[facility]ATORYCLIA [id number] [address] [place] Neutrophils/100 WBC (Bld) 78.0 % Normal [facility] Comment on above: Order Comment: Speci men Type: BLOOD SPECIMENOrdering Facility: [facility] Address: [address] [place] [address] Performed By: #### 5 7021-8 ####[facility]ORATORYCLIA [id number] [address] [place] Nucleated RBC (Bld) [#/Vol] 10*3/uL Normal <0.01 [facility] Comment on above: Order Comment: Speci men Type: BLOOD SPECIMENOrdering Facility: [facility] Address: [address] [place] [address] Performed By: #### 5 7021-8 ####[facility]ORATORYCLIA [id number] [address] [place] Nucleated RBC/100 WBC (Bld) [Ratio] 0.0 /100 WBC Normal [facility] Comment on above: Order Comment: Speci men Type: BLOOD SPECIMENOrdering Facility: [facility] Address: [address] [place] [address] Performed By: #### 5 7021-8 ####[facility]ATORYCLIA [id number] [address] Platelet mean volume (Bld) [Entitic vol] 10.4 fL Normal 9.0-12.7 [facility] Comment on above: Order Comment: Speci men Type: BLOOD SPECIMENOrdering Facility: [facility] Address: [address] [place] [address] Performed By: #### 5 7021-8 ####[facility]ATORYCLIA [id number] [address] [place] Platelets (Bld) [#/Vol] 396 10*3/uL Normal 150-400 [facility] Comment on above: Order Comment: Speci men Type: BLOOD SPECIMENOrdering Facility: [facility] Address: [address] [place] [address] Performed By: #### 5 7021-8 ####[facility]ATORYCLIA [id number] [address] RBC (Bld) [#/Vol] 3.57 10*6/uL Low 4.20-6.00 [facility] Comment on above: Order Comment: Speci men Type: BLOOD SPECIMENOrdering Facility: [facility] Address: [address] [place] [address] Performed By: #### 5 7021-8 ####[facility]ATORYCLIA [id number] [address] [place] WBC (Bld) [#/Vol] 14.87 10*3/uL High 3.70-11.00 [facility] Comment on above: Order Comment: Speci men Type: BLOOD SPECIMENOrdering Facility: [facility] Address: [address] [place] [address] Performed By: #### 5 7021-8 ####[facility]ATORYCLIA [id number] [address] Gas and Carbon monoxide pane l (BldV)on 07-21-2021 Base excess Calc (BldV) [Moles/Vol] 7 mmol/L High 0-2 [facility] Comment on above: Order Comment: Speci men Type: VENOUS BLOOD SPECIMENOrdering Facility: [facility] Address: [address] [place] [address] Performed By: #### 2 4344-4 ####[facility]ATORYCLIA [id number] [address] STATES [facility] Body temperature 98.6 [degF] Normal [facility] Comment on above: Order Comment: Speci men Type: VENOUS BLOOD SPECIMENOrdering Facility: [facility] Address: [address] [place] [address] Performed By: #### 2 4344-4 ####[facility]ATORYCLIA [id number] [address] [place] CALCIUM IONIZED, PH CORRECTED 1.21 mmol/L Normal 1.08-1.30 [facility] Comment on above: Order Comment: Speci men Type: VENOUS BLOOD SPECIMENOrdering Facility: [facility] Address: [address] [place] [address] Performed By: #### 2 4344-4 ####[facility]ATORYCLIA [id number] [address] [place] Calcium.ionized (BldV) [Mass/Vol] 1.23 mmol/L Normal 1.08-1.30 [facility] Comment on above: Order Comment: Speci men Type: VENOUS BLOOD SPECIMENOrdering Facility: [facility] Address: [address] [place] [address] Performed By: #### 2 4344-4 ####[facility]ATORYCLIA [id number] [address] [place] Carboxyhemoglobin (BldV) [Mass fraction] 2.3 % High 0.0-2.0 [facility] Comment on above: Order Comment: Speci men Type: VENOUS BLOOD SPECIMENOrdering Facility: [facility] Address: [address] [place] [address] Result Comment: Carb oxyhemoglobin Reference Range for Smokers: 2.0-8.0% Performed By: #### 2 4344-4 ####[facility]ATORYCLIA [id number] [address] [place] CO2 (BldV) [Partial pressure] 58 mm[Hg] High 42-55 [facility] Comment on above: Order Comment: Speci men Type: VENOUS BLOOD SPECIMENOrdering Facility: [facility] Address: [address] [place] [address] Performed By: #### 2 4344-4 ####[facility]ATORYCLIA [id number] [address] [place] CO2 [Moles/Vol] 31 mmol/L High 25-29 [facility] Comment on above: Order Comment: Speci men Type: VENOUS BLOOD SPECIMENOrdering Facility: [facility] Address: [address] [place] [address] Performed By: #### 2 4344-4 ####[facility]ATORYCLIA [id number] [address] [place] Glucose [Mass/Vol] 146 mg/dL High 60-105 [facility] Comment on above: Order Comment: Speci men Type: VENOUS BLOOD SPECIMENOrdering Facility: [facility] Address: [address] [place] [address] Performed By: #### 2 4344-4 ####[facility]ATORYCLIA [id number] [address] [place] HCO3 (Bld) [Moles/Vol] 33 mmol/L High 24-28 [facility] Comment on above: Order Comment: Speci men Type: VENOUS BLOOD SPECIMENOrdering Facility: [facility] Address: [address] [place] [address] Performed By: #### 2 4344-4 ####[facility]ATORYCLIA [id number] [address] [place] Hematocrit (Bld) [Volume fraction] 30.1 % Low 39.0-51.0 [facility] Comment on above: Order Comment: Speci men Type: VENOUS BLOOD SPECIMENOrdering Facility: [facility] Address: [address] [address] Performed By: #### 2 4344-4 ####[facility]ATORYCLIA [id number] [address] OF [facility] Hemoglobin (Bld) [Mass/Vol] 9.7 g/dL Low 13.0-17.0 [facility] Comment on above: Order Comment: Speci men Type: VENOUS BLOOD SPECIMENOrdering Facility: [facility] Address: [address] [place] [address] Performed By: #### 2 4344-4 ####[facility]ORYCLIA [id number] [address] Methemoglobin (Bld) [Mass fraction] % Normal 0.0-1.5 [facility] Comment on above: Order Comment: Speci men Type: VENOUS BLOOD SPECIMENOrdering Facility: [facility] Address: [address] [place] [address] Performed By: #### 2 4344-4 ####[facility]ATORYCLIA [id number] [address] O2 THERAPY NC = Nasal Cannula Normal [facility] Comment on above: Order Comment: Speci men Type: VENOUS BLOOD SPECIMENOrdering Facility: [facility] Address: [address] [place] [address] Performed By: #### 2 4344-4 ####[facility]ATORYCLIA [id number] [address] Oxygen (BldV) [Partial pressure] 64 mm[Hg] High 35-45 [facility] Comment on above: Order Comment: Speci men Type: VENOUS BLOOD SPECIMENOrdering Facility: [facility] Address: [address] [place] [address] Performed By: #### 2 4344-4 ####[facility]ORATORYCLIA [id number] [place] [address] [place] Oxygen saturation in Blood 90 % High 60-85 [facility] Comment on above: Order Comment: Speci men Type: VENOUS BLOOD SPECIMENOrdering Facility: [facility] Address: [address] [place] [address] Performed By: #### 2 4344-4 ####[facility]ATORYCLIA [id number] [place] [address] [place] Oxyhemoglobin (BldV) [Mass fraction] 87 % High 60-85 [facility] Comment on above: Order Comment: Speci men Type: VENOUS BLOOD SPECIMENOrdering Facility: [facility] Address: [address] [place] [address] Performed By: #### 2 4344-4 ####[facility]ATORYCLIA [id number] [place] [address] [place] pH (BldV) 7.38 [pH] Normal 7.32-7.42 [facility] Comment on above: Order Comment: Speci men Type: VENOUS BLOOD SPECIMENOrdering Facility: [facility] Address: [address] [place] [address] Performed By: #### 2 4344-4 ####[facility]ATORYCLIA [id number] [address] [place] Potassium [Moles/Vol] 3.8 mmol/L Normal 3.5-5.0 [facility] Comment on above: Order Comment: Speci men Type: VENOUS BLOOD SPECIMENOrdering Facility: [facility] Address: [address] [place] [address] Performed By: #### 2 4344-4 ####[facility]ATORYCLIA [id number] [place] [address] [place] Sodium [Moles/Vol] 145 mmol/L High 136-144 [facility] Comment on above: Order Comment: Speci men Type: VENOUS BLOOD SPECIMENOrdering Facility: [facility] Address: [address] [place] [address] Performed By: #### 2 4344-4 ####[facility]ORATORYCLIA [id number] [place] [address] [place] Base excess Calc (BldV) [Moles/Vol] 8 mmol/L High 0-2 [facility] Comment on above: Order Comment: Speci men Type: VENOUS BLOOD SPECIMENOrdering Facility: [facility] Address: [address] [place] [address] Performed By: #### 2 4344-4 ####[facility]ATORYCLIA [id number] [address] [place] Body temperature 100.22 [degF] Normal [facility] Comment on above: Order Comment: Speci men Type: VENOUS BLOOD SPECIMENOrdering Facility: [facility] Address: [address] [place] [address] Performed By: #### 2 4344-4 ####[facility]ATORYCLIA [id number] [address] [place] CALCIUM IONIZED, PH CORRECTED 1.25 mmol/L Normal 1.08-1.30 [facility] Comment on above: Order Comment: Speci men Type: VENOUS BLOOD SPECIMENOrdering Facility: [facility] Address: [address] [place] [address] Performed By: #### 2 4344-4 ####[facility]ATORYCLIA [id number] [address] [place] Calcium.ionized (BldV) [Mass/Vol] 1.24 mmol/L Normal 1.08-1.30 [facility] Comment on above: Order Comment: Speci men Type: VENOUS BLOOD SPECIMENOrdering Facility: [facility] Address: [address] [place] [address] Performed By: #### 2 4344-4 ####[facility]ATORYCLIA [id number] [address] [place] Carboxyhemoglobin (BldV) [Mass fraction] 2.5 % High 0.0-2.0 [facility] Comment on above: Order Comment: Speci men Type: VENOUS BLOOD SPECIMENOrdering Facility: [facility] Address: [address] [place] [address] Result Comment: Carb oxyhemoglobin Reference Range for Smokers: 2.0-8.0% Performed By: #### 2 4344-4 ####[facility]ORATORYCLIA [id number] [address] [place] CO2 (BldV) [Partial pressure] 53 mm[Hg] Normal 42-55 [facility] Comment on above: Order Comment: Speci men Type: VENOUS BLOOD SPECIMENOrdering Facility: [facility] Address: [address] [place] [address] Performed By: #### 2 4344-4 ####[facility] LABORATORYCLIA [id number] [address] [place] CO2 [Moles/Vol] 31 mmol/L High 25-29 [facility] Comment on above: Order Comment: Speci men Type: VENOUS BLOOD SPECIMENOrdering Facility: [facility] Address: [address] [place] [address] Performed By: #### 2 4344-4 ####[facility]ATORYCLIA [id number] [address] [place] CO2 adjusted to patient's actual temperature (BldV) [Partial pressure] 56 mmHg High 42-55 [facility] Comment on above: Order Comment: Speci men Type: VENOUS BLOOD SPECIMENOrdering Facility: [facility] Address: [address] [place] [address] Performed By: #### 2 4344-4 ####[facility]ORATORYCLIA [id number] [address] [place] Glucose [Mass/Vol] 131 mg/dL High 60-105 [facility] Comment on above: Order Comment: Speci men Type: VENOUS BLOOD SPECIMENOrdering Facility: [facility] Address: [address] [place] [address] Performed By: #### 2 4344-4 ####[facility] LABORATORYCLIA [id number] [address] [place] HCO3 (Bld) [Moles/Vol] 33 mmol/L High 24-28 [facility] Comment on above: Order Comment: Speci men Type: VENOUS BLOOD SPECIMENOrdering Facility: [facility] Address: [address] [place] [address] Performed By: #### 2 4344-4 ####[facility]ATORYCLIA [id number] [address] [place] Hematocrit (Bld) [Volume fraction] 30.8 % Low 39.0-51.0 [facility] Comment on above: Order Comment: Speci men Type: VENOUS BLOOD SPECIMENOrdering Facility: [facility] Address: [address] [place] [address] Performed By: #### 2 4344-4 ####[facility]ATORYCLIA [id number] [address] STATES OF [facility] Hemoglobin (Bld) [Mass/Vol] 10.0 g/dL Low 13.0-17.0 [facility] Comment on above: Order Comment: Speci men Type: VENOUS BLOOD SPECIMENOrdering Facility: [facility] Address: [address] [place] [address] Performed By: #### 2 4344-4 ####[facility]ORATORYCLIA [id number] [address] [place] Methemoglobin (Bld) [Mass fraction] % Normal 0.0-1.5 [facility] Comment on above: Order Comment: Speci men Type: VENOUS BLOOD SPECIMENOrdering Facility: [facility] Address: [address] [place] [address] Performed By: #### 2 4344-4 ####[facility]ORATORYCLIA [id number] [address] O2 THERAPY NC = Nasal Cannula Normal [facility] Comment on above: Order Comment: Speci men Type: VENOUS BLOOD SPECIMENOrdering Facility: [facility] Address: [address] [place] [address] Performed By: #### 2 4344-4 ####[facility]ORATORYCLIA [id number] [address] [place] Oxygen (BldV) [Partial pressure] 58 mm[Hg] High 35-45 [facility] Comment on above: Order Comment: Speci men Type: VENOUS BLOOD SPECIMENOrdering Facility: [facility] Address: [address] [place] [address] Performed By: #### 2 4344-4 ####[facility]ORATORYCLIA [id number] [address] [place] Oxygen adjusted to patient's actual temperature (BldV) [Partial pressure] 61 mmHg High 35-45 [facility] Comment on above: Order Comment: Speci men Type: VENOUS BLOOD SPECIMENOrdering Facility: [facility] Address: [address] [place] [address] Performed By: #### 2 4344-4 ####[facility]ATORYCLIA [id number] [address] [place] Oxygen saturation in Blood 88 % High 60-85 [facility] Comment on above: Order Comment: Speci men Type: VENOUS BLOOD SPECIMENOrdering Facility: [facility] Address: [address] [place] [address] Performed By: #### 2 4344-4 ####[facility]ATORYCLIA [id number] [address] [place] Oxyhemoglobin (BldV) [Mass fraction] 85 % Normal 60-85 [facility] Comment on above: Order Comment: Speci men Type: VENOUS BLOOD SPECIMENOrdering Facility: [facility] Address: [address] [place] [address] Performed By: #### 2 4344-4 ####[facility]ATORYCLIA [id number] [address] [place] pH (BldV) 7.41 [pH] Normal 7.32-7.42 [facility] Comment on above: Order Comment: Speci men Type: VENOUS BLOOD SPECIMENOrdering Facility: [facility] Address: [address] [place] [address] Performed By: #### 2 4344-4 ####[facility]ORATORYCLIA [id number] [address] STATES OF [facility] pH adjusted to patient's actual temperature (BldV) 7.40 Normal 7.32-7.42 [facility] Comment on above: Order Comment: Speci men Type: VENOUS BLOOD SPECIMENOrdering Facility: [facility] Address: [address] [place] [address] Performed By: #### 2 4344-4 ####[facility]ORATORYCLIA [id number] [place] [address] [place] Potassium [Moles/Vol] 4.0 mmol/L Normal 3.5-5.0 [facility] Comment on above: Order Comment: Speci men Type: VENOUS BLOOD SPECIMENOrdering Facility: [facility] Address: [address] [place] [address] Performed By: #### 2 4344-4 ####[facility]ORATORYCLIA [id number] [place] [address] [place] Sodium [Moles/Vol] 146 mmol/L High 136-144 [facility] Comment on above: Order Comment: Speci men Type: VENOUS BLOOD SPECIMENOrdering Facility: [facility] Address: [address] [place] [address] Performed By: #### 2 4344-4 ####[facility]ORATORYCLIA [id number] [place] [address] [place] Magnesium SerPl-mCncon 07-21 Magnesium [Mass/Vol] 2.5 mg/dL High 1.7-2.3 [facility] Comment on above: Order Comment: Speci men Type: BLOOD SPECIMENOrdering Facility: [facility] Address: [address] [place] [address] Performed By: #### 1 9123-9, 2777-1, 19637-5 ####[facility]ORATORYCLIA [id number] [place] [address] [place] NURSING PROGon 07-21-2021 NURSING PROG Normal [facility] Phosphate SerPl-mCncon 07-21 Phosphate [Mass/Vol] 3.7 mg/dL Normal 2.7-4.8 [facility] Comment on above: Order Comment: Speci men Type: BLOOD SPECIMENOrdering Facility: [facility] Address: [facility] [place] [address] Performed By: #### 1 9123-9, 2777-1, 51871-2 ####[facility]ORATORYCLIA [id number] [address] OF [facility] THERAPY NTon 07-21-2021 THERAPY NT Normal [facility] XR CHEST 1V FRONTALon 2021 XR CHEST 1V FRONTAL Normal [facility] aPTT PPPon 07-21-2021 aPTT Coag (PPP) [Time] 53.0 s High 23.0-32.4 [facility] Comment on above: Order Comment: Speci men Type: BLOOD SPECIMENOrdering Facility: [facility] Address: [facility] [address] [place] [address] Performed By: #### 1 4979-9 ####[facility]ORATORYCLIA [id number] [place] [address] [place] ALLIED HEALTHon 07-20-2021 ALLIED HEALTH Normal [facility] Basic metabolic 2000 panelon 07-20-2021 Anion gap [Moles/Vol] 8 mmol/L Low 9-18 [facility] Comment on above: Order Comment: Speci men Type: BLOOD SPECIMENOrdering Facility: [facility] Address: [facility] [place] [place] [address] Performed By: #### 2 4321-2, 83051-3, 2777-1 ####[facility]ORATORYCLIA [id number] [place] [address] [place] Calcium [Mass/Vol] 9.7 mg/dL Normal 8.5-10.2 [facility] Comment on above: Order Comment: Speci men Type: BLOOD SPECIMENOrdering Facility: [facility] Address: [address] [place], [place] [id number] Performed By: #### 2 4321-2, , 2776-05 ####[facility]ORATORYCLIA [id number] [place] [address] [place] Chloride [Moles/Vol] 104 mmol/L Normal 97-105 [facility] Comment on above: Order Comment: Speci men Type: BLOOD SPECIMENOrdering Facility: [facility] Address: [address] [place] [address] Performed By: #### 2 4321-2, , 2776-05 ####[facility]ORATORYCLIA [id number] [address] [place] CO2 [Moles/Vol] 34 mmol/L High 22-30 [facility] Comment on above: Order Comment: Speci men Type: BLOOD SPECIMENOrdering Facility: [facility] Address: [address] [place] [address] Performed By: #### 2 4321-2, , 2776-05 ####[facility]ORATORYCLIA [id number] [address] [place] Creatinine [Mass/Vol] 0.76 mg/dL Normal 0.73-1.22 [facility] Comment on above: Order Comment: Speci men Type: BLOOD SPECIMENOrdering Facility: [facility] Address: [address] [place] [address] Performed By: #### 2 4321-2, , 2776-05 ####[facility]ORATORYCLIA [id number] [address] [place] ESTIMATED GLOMERULAR FILTRATION RATE 97 mL/min/1.73m??? Normal >=60 [facility] Comment on above: Order Comment: Speci men Type: BLOOD SPECIMENOrdering Facility: [facility] Address: [address] [place] [address] Result Comment: Luzmaria mated Glomerular Filtration Rate [...] Performed By: #### 2 4321-2, , 2776-05 ####[facility]ORATORYCLIA [id number] [place] [address] [place] Glucose [Mass/Vol] 123 mg/dL High 74-99 [facility] Comment on above: Order Comment: Shira feldman Type: BLOOD SPECIMENOrdering Facility: [facility] Address: [address] [place], [place] [address] Result Comment: The [place] Diabetes Association (ADA) provides guidance for cutoff [...] Standards of Medical Care in Diabetes 2016, [place] [employer] Association. Diabetes Care. 2016.39(Suppl 1). Performed By: #### 2 4321-2, , 2776-05 ####[facility]ORATORYIA [id number] [place] [address] [place] Potassium [Moles/Vol] 4.4 mmol/L Normal 3.7-5.1 [facility] Comment on above: Order Comment: Shira feldman Type: BLOOD SPECIMENOrdering Facility: [facility] Address: [address] [place] [address] Performed By: #### 2 4321-2, , 2776-05 ####[facility]ATORYCLIA [id number] [place] [address] [place] Sodium [Moles/Vol] 146 mmol/L High 136-144 [facility] Comment on above: Order Comment: Speci men Type: BLOOD SPECIMENOrdering Facility: [facility] Address: [address] [place] [address] Performed By: #### 2 4321-2, 95523-9, 2777-1 ####[facility]ATORYCLIA [id number] [address] STATES [place] Urea nitrogen [Mass/Vol] 38 mg/dL High 9-24 [facility] Comment on above: Order Comment: Speci men Type: BLOOD SPECIMENOrdering Facility: [facility] Address: [address] [place] [address] Performed By: #### 2 4321-2, 50860-9, 2777-1 ####[facility]ATORYCLIA [id number] [address] STATES OF [facility] CASE MANAGEMon 07-20-2021 CASE MANAGEM Normal [facility] CBC W Auto Differential pane l (Bld)on 07-20-2021 Basophils (Bld) [#/Vol] 0.05 10*3/uL Normal <0.11 [facility] Comment on above: Order Comment: Speci men Type: BLOOD SPECIMENOrdering Facility: [facility] Address: [address] [place] [address] Performed By: #### 5 7021-8 ####[facility]ATORYCLIA [id number] [address] [place] Basophils/100 WBC (Bld) 0.5 % Normal [facility] Comment on above: Order Comment: Speci men Type: BLOOD SPECIMENOrdering Facility: [facility] Address: [address] [place] [address] Performed By: #### 5 7021-8 ####[facility]ATORYCLIA [id number] [address] STATES [facility] Differential cell count method Nom (Bld) Auto Normal [facility] Comment on above: Order Comment: Speci men Type: BLOOD SPECIMENOrdering Facility: [facility] Address: [address] [place] [address] Performed By: #### 5 7021-8 ####[facility]ATORYCLIA [id number] [address] STATES [place] Eosinophils (Bld) [#/Vol] 0.43 10*3/uL Normal <0.46 [facility] Comment on above: Order Comment: Speci men Type: BLOOD SPECIMENOrdering Facility: [facility] Address: [address] [place] [address] Performed By: #### 5 7021-8 ####[facility]ATORYCLIA [id number] [address] [place] Eosinophils/100 WBC (Bld) 4.1 % Normal [facility] Comment on above: Order Comment: Speci men Type: BLOOD SPECIMENOrdering Facility: [facility] Address: [address] [place] [address] Performed By: #### 5 7021-8 ####[facility]ATORYCLIA [id number] [address] [place] Erythrocyte distribution width (RBC) [Ratio] 16.7 % High 11.5-15.0 [facility] Comment on above: Order Comment: Speci men Type: BLOOD SPECIMENOrdering Facility: [facility] Address: [address] [place] [address] Performed By: #### 5 7021-8 ####[facility]ORATORYCLIA [id number] [address] [place] Hematocrit (Bld) [Volume fraction] 33.0 % Low 39.0-51.0 [facility] Comment on above: Order Comment: Speci men Type: BLOOD SPECIMENOrdering Facility: [facility] Address: [address] [place] [address] Performed By: #### 5 7021-8 ####[facility]ORATORYCLIA [id number] [address] [place] Hemoglobin (Bld) [Mass/Vol] 9.7 g/dL Low 13.0-17.0 [facility] Comment on above: Order Comment: Speci men Type: BLOOD SPECIMENOrdering Facility: [facility] Address: [address] [place] [address] Performed By: #### 5 7021-8 ####[facility]ATORYCLIA [id number] [address] STATES OF [facility] IMMATURE GRAN % 0.4 % Normal [facility] Comment on above: Order Comment: Speci men Type: BLOOD SPECIMENOrdering Facility: [facility] Address: [address] [place] [address] Performed By: #### 5 7021-8 ####[facility]ATORYCLIA [id number] [address] IMMATURE GRAN ABS 0.04 k/uL Normal <0.10 [facility] Comment on above: Order Comment: Speci men Type: BLOOD SPECIMENOrdering Facility: [facility] Address: [address] [place] [address] Performed By: #### 5 7021-8 ####[facility]ORATORYCLIA [id number] [address] [place] Lymphocytes (Bld) [#/Vol] 1.99 10*3/uL Normal 1.00-4.00 [facility] Comment on above: Order Comment: Speci men Type: BLOOD SPECIMENOrdering Facility: [facility] Address: [address] [place] [address] Performed By: #### 5 7021-8 ####[facility]ATORYCLIA [id number] [address] Lymphocytes/100 WBC (Bld) 18.8 % Normal [facility] Comment on above: Order Comment: Speci men Type: BLOOD SPECIMENOrdering Facility: [facility] Address: [address] [place] [address] Performed By: #### 5 7021-8 ####[facility]ORATORYCLIA [id number] [address] MCH (RBC) [Entitic mass] 27.8 pg Normal 26.0-34.0 [facility] Comment on above: Order Comment: Speci men Type: BLOOD SPECIMENOrdering Facility: [facility] Address: [address] [place] [address] Performed By: #### 5 7021-8 ####[facility]ORATORYCLIA [id number] [address] STATES OF [facility] MCHC (RBC) [Mass/Vol] 29.4 g/dL Low 30.5-36.0 [facility] Comment on above: Order Comment: Speci men Type: BLOOD SPECIMENOrdering Facility: [facility] Address: [address] [place] [address] Performed By: #### 5 7021-8 ####[facility]ATORYCLIA [id number] [address] MCV (RBC) [Entitic vol] 94.6 fL Normal 80.0-100.0 [facility] Comment on above: Order Comment: Speci men Type: BLOOD SPECIMENOrdering Facility: [facility] Address: [address] [place] [address] Performed By: #### 5 7021-8 ####[facility]ORATORYCLIA [id number] [address] Monocytes (Bld) [#/Vol] 0.82 10*3/uL Normal <0.87 [facility] Comment on above: Order Comment: Speci men Type: BLOOD SPECIMENOrdering Facility: [facility] Address: [address] [place] [address] Performed By: #### 5 7021-8 ####[facility]ATORYCLIA [id number] [address] Monocytes/100 WBC (Bld) 7.8 % Normal [facility] Comment on above: Order Comment: Speci men Type: BLOOD SPECIMENOrdering Facility: [facility] Address: [address] [address] Performed By: #### 5 7021-8 ####[facility] LABORATORYCLIA [id number] [address] [place] Neutrophils (Bld) [#/Vol] 7.23 10*3/uL Normal 1.45-7.50 [facility] Comment on above: Order Comment: Speci men Type: BLOOD SPECIMENOrdering Facility: [facility] Address: [address] [place] [address] Performed By: #### 5 7021-8 ####[facility]ATORYCLIA [id number] [address] Neutrophils/100 WBC (Bld) 68.4 % Normal [facility] Comment on above: Order Comment: Speci men Type: BLOOD SPECIMENOrdering Facility: [facility] Address: [address] [place] [address] Performed By: #### 5 7021-8 ####[facility]ATORYCLIA [id number] [address] [place] Nucleated RBC (Bld) [#/Vol] 10*3/uL Normal <0.01 [facility] Comment on above: Order Comment: Speci men Type: BLOOD SPECIMENOrdering Facility: [facility] Address: [address] [place] [address] Performed By: #### 5 7021-8 ####[facility]ORATORYCLIA [id number] [address] [place] Nucleated RBC/100 WBC (Bld) [Ratio] 0.0 /100 WBC Normal [facility] Comment on above: Order Comment: Speci men Type: BLOOD SPECIMENOrdering Facility: [facility] Address: [address] [place] [address] Performed By: #### 5 7021-8 ####[facility] LABORATORYCLIA [id number] [address] [place] Platelet mean volume (Bld) [Entitic vol] 10.5 fL Normal 9.0-12.7 [facility] Comment on above: Order Comment: Speci men Type: BLOOD SPECIMENOrdering Facility: [facility] Address: [address] [place] [address] Performed By: #### 5 7021-8 ####[facility]ATORYCLIA [id number] [address] [place] Platelets (Bld) [#/Vol] 400 10*3/uL Normal 150-400 [facility] Comment on above: Order Comment: Speci men Type: BLOOD SPECIMENOrdering Facility: [facility] Address: [address] [place] [address] Performed By: #### 5 7021-8 ####[facility]ORATORYCLIA [id number] [address] [place] RBC (Bld) [#/Vol] 3.49 10*6/uL Low 4.20-6.00 [facility] Comment on above: Order Comment: Speci men Type: BLOOD SPECIMENOrdering Facility: [facility] Address: [address] [place] [address] Performed By: #### 5 7021-8 ####[facility]ORATORYCLIA [id number] [address] [place] WBC (Bld) [#/Vol] 10.56 10*3/uL Normal 3.70-11.00 [facility] Comment on above: Order Comment: Speci men Type: BLOOD SPECIMENOrdering Facility: [facility] Address: [address] [place] [address] Performed By: #### 5 7021-8 ####[facility]ORATORYCLIA [id number] [address] [place] CONSULT PROGon 07-20-2021 CONSULT PROG Normal [facility] CT BRAIN WO IVCONon 07-21-19 CT BRAIN WO IVCON Normal [facility] Magnesium SerPl-mCncon 07-20 Magnesium [Mass/Vol] 2.4 mg/dL High 1.7-2.3 [facility] Comment on above: Order Comment: Speci men Type: BLOOD SPECIMENOrdering Facility: [facility] Address: [address] [place] [address] Performed By: #### 2 4321-2, 09772-0, 2777-1 ####[facility]ATORYCLIA [id number] [place] [address] [place] NUTRITIONon 07-20-2021 NUTRITION Normal [facility] Phosphate SerPl-mCncon 07-20 Phosphate [Mass/Vol] 4.1 mg/dL Normal 2.7-4.8 [facility] Comment on above: Order Comment: Speci men Type: BLOOD SPECIMENOrdering Facility: [facility] Address: [address] [place] [address] Performed By: #### 2 4321-2, 09848-3, 2777-1 ####[facility]ATORYCLIA [id number] [place] [address] [place] aPTT PPPon 07-20-2021 aPTT Coag (PPP) [Time] 53.6 s High 23.0-32.4 [facility] Comment on above: Order Comment: Speci men Type: BLOOD SPECIMENOrdering Facility: [facility] Address: [address] [place] [address] Performed By: #### 1 4979-9 ####[facility]ORATORYCLIA [id number] [place] [address] [place] Bacteria CSF Culton 07-20-19 22 Bacteria identified Cx Nom (CSF) CULTURE, CSF: No growth 14 days GRAM STAIN: No organisms seen No Polymorphonuclear Leukocytes Rare Mononuclear cells Gram stain performed on cytospun specimen. Normal [facility] Comment on above: Performed By: #### 6 06-4 ####[facility]ATORYCLIA [id number] [place] [address] [place] CONSULT PROGon 07-19-2021 CONSULT PROG Normal [facility] CSF MANUAL DIFFon 07-19-2021 DIF TTL, CSF 100 cells counted Normal [facility] Comment on above: Order Comment: Speci men Type: CEREBROSPINAL FLUIDOrdering Facility: [facility] Address: [address] [place] [address] Performed By: #### L [id number], 45249-6, [id number] ####[facility]ORATORYCLIA [id number] [place] [address] [place] EOSIN%, CSF 1 % Normal [facility] Comment on above: Order Comment: Speci men Type: CEREBROSPINAL FLUIDOrdering Facility: [facility] Address: [address] [place] [address] Performed By: #### L [id number], 08981-9, [id number] ####[facility]ORATORYCLIA [id number] [place] [address] [place] LYMPH%, CSF 67 % Normal 50-90 [facility] Comment on above: Order Comment: Speci men Type: CEREBROSPINAL FLUIDOrdering Facility: [facility] Address: [address] [place] [address] Performed By: #### L CK2178, 31599-7, [id number] ####[facility]ORATORYCLIA [id number] [place] [address] [place] MACRO%, CSF 1 % High <1 [facility] Comment on above: Order Comment: Speci men Type: CEREBROSPINAL FLUIDOrdering Facility: [facility] Address: [address] [place] [address] Performed By: #### L CK1222, 29994-1, [id number] ####[facility]ORATORYCLIA [id number] [place] [address] [place] MONO%, CSF 18 % Normal 10-50 [facility] Comment on above: Order Comment: Speci men Type: CEREBROSPINAL FLUIDOrdering Facility: [facility] Address: [address] [place] [address] Performed By: #### L ZC2890, 13731-3, [id number] ####[facility]ORATORYCLIA [id number] [place] [address] [place] NEUT%, CSF 11 % High 0-3 [facility] Comment on above: Order Comment: Speci men Type: CEREBROSPINAL FLUIDOrdering Facility: [facility] Address: [address] [place] [address] Performed By: #### L DM7180, 57025-6, [id number] ####[facility]ORATORYCLIA [id number] [address] OF [facility] OTHER CL%, CSF 2 % Normal [facility] Comment on above: Order Comment: Speci men Type: CEREBROSPINAL FLUIDOrdering Facility: [facility] Address: [address] [place] [address] Result Comment: Path review to follow. Performed By: #### L SV4187, 22651-7, [id number] ####[facility]ATORYCLIA [id number] [address] CSF PATHOLOGIST INTERP (LAB REFLEX ORDER-NO BILL)on 07-19-2021 CSF STAFF REVIEW Normal [facility] Comment on above: Order Comment: Speci men Type: CEREBROSPINAL FLUIDOrdering Facility: [facility] Address: [address] [place] [address] Performed By: #### L SZ7970, 64614-9, [id number] ####[facility]ORATORYCLIA [id number] [address] Pathologist name Reviewed by Wing Cummings MD [facility] Comment on above: Order Comment: Speci men Type: CEREBROSPINAL FLUIDOrdering Facility: [facility] Address: [address] [place] [address] Performed By: #### L DC1997, 22169-0, [id number] ####[facility]ORATORYCLIA [id number] [address] Cell count panel (CSF)on Clarity (CSF) Clear Normal Clear [facility] Comment on above: Order Comment: Speci men Type: CEREBROSPINAL FLUIDOrdering Facility: [facility] Address: [address] [place] [address] Performed By: #### L VT9904, 16443-2, [id number] ####[facility]ORATORYCLIA [id number] [address] Clarity (Unsp spec) Not Indicated Normal Clear [facility] Comment on above: Order Comment: Speci men Type: CEREBROSPINAL FLUIDOrdering Facility: [facility] Address: [address] [place] [address] Performed By: #### L GC0134, 98628-3, [id number] ####[facility]ORATORYCLIA [id number] [address] Color (CSF) Colorless Normal Colorless [facility] Comment on above: Order Comment: Speci men Type: CEREBROSPINAL FLUIDOrdering Facility: [facility] Address: [address] [place] [address] Performed By: #### L HF2652, 56913-3, [id number] ####[facility]ATORYCLIA [id number] [address] Color (Spun CSF) Not Indicated Normal Colorless [facility] Comment on above: Order Comment: Speci men Type: CEREBROSPINAL FLUIDOrdering Facility: [facility] Address: [address] [place] [address] Performed By: #### L BO9049, 23086-1, [id number] ####[facility]ORATORYCLIA [id number] [address] CSF TU[employer] Normal [facility] Comment on above: Order Comment: Speci men Type: CEREBROSPINAL FLUIDOrdering Facility: [facility] Address: [address] [place] [address] Performed By: #### L PT4262, 32739-6, [id number] ####[facility]ORATORYCLIA [id number] [address] RBC Manual cnt (CSF) [#/Vol] 0 cells/uL Normal 0-5 [facility] Comment on above: Order Comment: Speci men Type: CEREBROSPINAL FLUIDOrdering Facility: [facility] Address: [address] [place] [address] Performed By: #### L BF1043, 88840-4, [id number] ####[facility]ORATORYCLIA [id number] [address] STATES OF [facility] WBC Manual cnt (CSF) [#/Vol] 2 cells/uL Normal 0-5 [facility] Comment on above: Order Comment: Speci men Type: CEREBROSPINAL FLUIDOrdering Facility: [facility] Address: [address] [place] [address] Performed By: #### L GP3513, 16849-1, [id number] ####[facility]ORATORYCLIA [id number] [address] STATES OF [facility] Glucose CSF-[facility] 2 Glucose (CSF) [Mass/Vol] 69 mg/dL Normal 40-70 [facility] Comment on above: Order Comment: Speci men Type: CEREBROSPINAL FLUIDOrdering Facility: [facility] Address: [address] [place] [address] Result Comment: Lumb ar CSF glucose values of healthy patients are approximately 60% of the plasma values and must always be compared with a concurrently measured plasma value for adequate clinical interpretation.References: 1. Glucose HK (GLUC3) [package insert V 12.0 [place]]. [employer], [place], [place]. September 2015. 2. Michelle Moore, Loki, H. (2015). Chapter 7: Glucose and Lactate. F. Irina rose al.(eds.), Cerebrospinal Fluid in Clinical Neurology. [place]: [employer]. Performed By: #### 2 342-4, 2880-3 ####[facility]ORATORYCLIA [id number] [address] [place] NURSING PROGon 07-19-2021 NURSING PROG Normal [facility] NURSING PROG Normal [facility] Prot CSF-mCncon 07-19-2021 Protein (CSF) [Mass/Vol] 51 mg/dL High 15-45 [facility] Comment on above: Order Comment: Speci men Type: CEREBROSPINAL FLUIDOrdering Facility: [facility] Address: [address] [place] [address] Performed By: #### 2 342-4, 2880-3 ####[facility]ORATORYCLIA [id number] [address] OF [facility] THERAPY NTon 07-19-2021 THERAPY NT Normal [facility] Urinalysis complete panel (U )on 07-19-2021 Bilirubin Ql (U) Negative Normal Negative [facility] Comment on above: Order Comment: Speci men Type: URINE SPECIMENOrdering Facility: [facility] Address: [address] [place] [address] Performed By: #### 2 4356-8 ####[facility]ORATORYCLIA [id number] [address] Clarity (Unsp spec) Clear Normal Clear [facility] Comment on above: Order Comment: Speci men Type: URINE SPECIMENOrdering Facility: [facility] Address: [address] [place] [address] Performed By: #### 2 4356-8 ####[facility]ORATORYCLIA [id number] [address] Color (U) Colorless Normal yellow [facility] Comment on above: Order Comment: Speci men Type: URINE SPECIMENOrdering Facility: [facility] Address: [address] [place] [address] Performed By: #### 2 4356-8 ####[facility]ORATORYCLIA [id number] [address] Glucose Test strip (U) [Mass/Vol] Negative Normal Negative [facility] Comment on above: Order Comment: Speci men Type: URINE SPECIMENOrdering Facility: [facility] Address: [address] [place] [address] Performed By: #### 2 4356-8 ####[facility]ORATORYCLIA [id number] [address] STATES [facility] Hemoglobin Ql (U) Trace Abnormal Negative [facility] Comment on above: Order Comment: Speci men Type: URINE SPECIMENOrdering Facility: [facility] Address: [address] [place] [address] Performed By: #### 2 4356-8 ####[facility]ORATORYCLIA [id number] [place] [address] [place] Hyaline casts (Urine sed) [#/Area] 1-3 /LPF Abnormal 0 /LPF [facility] Comment on above: Order Comment: Speci men Type: URINE SPECIMENOrdering Facility: [facility] Address: [address] [place] [address] Performed By: #### 2 4356-8 ####[facility]ORATORYCLIA [id number] [address] [place] [facility] Ketones Ql (U) Negative Normal Negative [facility] Comment on above: Order Comment: Speci men Type: URINE SPECIMENOrdering Facility: [facility] Address: [address] [place] [address] Performed By: #### 2 4356-8 ####[facility]ATORYCLIA [id number] [address] Leukocyte esterase Test strip Ql (U) Negative Normal Negative [facility] Comment on above: Order Comment: Speci men Type: URINE SPECIMENOrdering Facility: [facility] Address: [address] [place] [address] Performed By: #### 2 4356-8 ####[facility]ORATORYCLIA [id number] [place] [address] [place] Nitrite Ql (U) Negative Normal Negative [facility] Comment on above: Order Comment: Speci men Type: URINE SPECIMENOrdering Facility: [facility] Address: [address] [place] [address] Performed By: #### 2 4356-8 ####[facility]ORATORYCLIA [id number] [address] pH (U) 7.0 [pH] Normal 5.0-8.0 [facility] Comment on above: Order Comment: Speci men Type: URINE SPECIMENOrdering Facility: [facility] Address: [address] [place] [address] Performed By: #### 2 4356-8 ####[facility]ORATORYCLIA [id number] [address] Protein (U) [Mass/Vol] Negative Normal Negative [facility] Comment on above: Order Comment: Speci men Type: URINE SPECIMENOrdering Facility: [facility] Address: [address] [place] [address] Performed By: #### 2 4356-8 ####[facility] [id number] [address] STATES [facility] RBC LM.HPF (Urine sed) [#/Area] 6-10 /HPF Abnormal 0-3 /HPF [facility] Comment on above: Order Comment: Speci men Type: URINE SPECIMENOrdering Facility: [facility] Address: [address] [place] [address] Performed By: #### 2 4356-8 ####[facility]ITAL[facility] [id number] [address] Specific gravity (U) [Rel density] 1.008 Normal 1.005-1.030 [facility] Comment on above: Order Comment: Speci men Type: URINE SPECIMENOrdering Facility: [facility] Address: [address] [place] [address] Performed By: #### 2 4356-8 ####[facility]ATORYCLIA [id number] Urobilinogen Ql (U) Normal Normal Negative [facility] Comment on above: Order Comment: Speci men Type: URINE SPECIMENOrdering Facility: [facility] Address: [address] [place] [address] Performed By: #### 2 4356-8 ####[facility]ATORYCLIA [id number] [address] [place] [facility] WBC LM.HPF (Urine sed) [#/Area] 0-5 /HPF Normal 0-5 /HPF [facility] Comment on above: Order Comment: Speci men Type: URINE SPECIMENOrdering Facility: [facility] Address: [address] [place] [address] Performed By: #### 2 4356-8 ####[facility]ATORYCLIA [id number] [address] Vancomycin random [Mass/Vol] on 07-19-2021 Vancomycin [Mass/Vol] 13.9 ug/mL Normal 10.0-20.0 [facility] Comment on above: Order Comment: Speci men Type: BLOOD SPECIMENOrdering Facility: [facility] Address: [address] [place] [address] Result Comment: Refe rence ranges and high/low indicator flags are provided as general guidelines only. The treating physician must determine appropriate target levels/dosing based on the specific clinical situation. Performed By: #### 4 091-5 ####[facility]ITAL[facility] [id number] [address] aPTT PPPon 07-19-2021 aPTT Coag (PPP) [Time] 53.9 s High 23.0-32.4 [facility] Comment on above: Order Comment: Speci men Type: BLOOD SPECIMENOrdering Facility: [facility] Address: [address] [address] Performed By: #### 1 4979-9 ####[facility]ATORYCLIA [id number] [address] [place] Basic metabolic 2000 panelon 07-18-2021 Anion gap [Moles/Vol] 6 mmol/L Low 9-18 [facility] Comment on above: Order Comment: Speci men Type: BLOOD SPECIMENOrdering Facility: [facility] Address: [address] [place] [address] Performed By: #### 2 4321-2, , 2776-05 ####[facility]ATORYCLIA [id number] [place] [address] [place] Calcium [Mass/Vol] 9.4 mg/dL Normal 8.5-10.2 [facility] Comment on above: Order Comment: Speci men Type: BLOOD SPECIMENOrdering Facility: [facility] Address: [address] [place] [address] Performed By: #### 2 4321-2, , 2776-05 ####[facility]ATORYCLIA [id number] [place] [address] [place] Chloride [Moles/Vol] 103 mmol/L Normal 97-105 [facility] Comment on above: Order Comment: Speci men Type: BLOOD SPECIMENOrdering Facility: [facility] Address: [address] [place] [address] Performed By: #### 2 4321-2, , 2776-05 ####[facility]ATORYCLIA [id number] [place] [address] [place] CO2 [Moles/Vol] 34 mmol/L High 22-30 [facility] Comment on above: Order Comment: Speci men Type: BLOOD SPECIMENOrdering Facility: [facility] Address: [address] [place] [address] Performed By: #### 2 4321-2, , 2776-05 ####[facility]ATORYCLIA [id number] [place] [address] [place] Creatinine [Mass/Vol] 0.75 mg/dL Normal 0.73-1.22 [facility] Comment on above: Order Comment: Speci men Type: BLOOD SPECIMENOrdering Facility: [facility] Address: [address] [place], [place] [address] Performed By: #### 2 4321-2, , 2776-05 ####[facility]ORATORYCLIA [id number] [place] [address] [place] ESTIMATED GLOMERULAR FILTRATION RATE 98 mL/min/1.73m??? Normal >=60 [facility] Comment on above: Order Comment: Johncara feldman Type: BLOOD SPECIMENOrdering Facility: [facility] Address: [address] [place], [place] [address] Result Comment: Luzmaria mated Glomerular Filtration Rate [...] actual GFR. Performed By: #### 2 4321-2, 23947-4, 2776-05 ####[facility]ATORYCLIA [id number] [place] [address] [place] Glucose [Mass/Vol] 125 mg/dL High 74-99 [facility] Comment on above: Order Comment: Shira feldman Type: BLOOD SPECIMENOrdering Facility: [facility] Address: [address] [place] [address] Result Comment: The [place] Diabetes [employer] (ADA) provides guidance for cutoff [...] Standards of Medical Care in Diabetes 2016, [place] [employer]. Diabetes Care. 2016.39(Suppl 1). Performed By: #### 2 4321-2, 96541-9, 2776- ####[facility]ATORYCLIA [id number] [place] [id number] [place] Potassium [Moles/Vol] 4.4 mmol/L Normal 3.7-5.1 [facility] Comment on above: Order Comment: Speci men Type: BLOOD SPECIMENOrdering Facility: [facility] Address: [address] [place] [address] Performed By: #### 2 4321-2, , 2776-05 ####[facility]ATORYCLIA [id number] [place] [address] [place] Sodium [Moles/Vol] 143 mmol/L Normal 136-144 [facility] Comment on above: Order Comment: Speci men Type: BLOOD SPECIMENOrdering Facility: [facility] Address: [address] [place] [address] Performed By: #### 2 4321-2, , 2776-05 ####[facility]ORYCLIA [id number] [address] [place] Urea nitrogen [Mass/Vol] 33 mg/dL High 9-24 [facility] Comment on above: Order Comment: Speci men Type: BLOOD SPECIMENOrdering Facility: [facility] Address: [address] [place] [address] Performed By: #### 2 4321-2, , 2776-05 ####[facility]ORYCLIA [id number] [address] [place] CASE MANAGEMon 07-18-2021 CASE MANAGEM Normal [facility] CBC W Auto Differential pane l (Bld)on 07-18-2021 Basophils (Bld) [#/Vol] 0.05 10*3/uL Normal <0.11 [facility] Comment on above: Order Comment: Speci men Type: BLOOD SPECIMENOrdering Facility: [facility] Address: [address] [place] [address] Performed By: #### 5 7021-8 ####[facility]ATORYCLIA [id number] [address] [place] Basophils/100 WBC (Bld) 0.5 % Normal [facility] Comment on above: Order Comment: Speci men Type: BLOOD SPECIMENOrdering Facility: [facility] Address: [address] [place] [address] Performed By: #### 5 7021-8 ####[facility]ATORYCLIA [id number] [address] Differential cell count method Nom (Bld) Auto Normal [facility] Comment on above: Order Comment: Speci men Type: BLOOD SPECIMENOrdering Facility: [facility] Address: [address] [place] [address] Performed By: #### 5 7021-8 ####[facility]ORYCLIA [id number] [address] Eosinophils (Bld) [#/Vol] 0.44 10*3/uL Normal <0.46 [facility] Comment on above: Order Comment: Speci men Type: BLOOD SPECIMENOrdering Facility: [facility] Address: [address] [place] [address] Performed By: #### 5 7021-8 ####[facility]ATORYCLIA [id number] [address] Eosinophils/100 WBC (Bld) 4.3 % Normal [facility] Comment on above: Order Comment: Speci men Type: BLOOD SPECIMENOrdering Facility: [facility] Address: [address] [place] [address] Performed By: #### 5 7021-8 ####[facility]ATORYCLIA [id number] [address] Erythrocyte distribution width (RBC) [Ratio] 16.6 % High 11.5-15.0 [facility] Comment on above: Order Comment: Speci men Type: BLOOD SPECIMENOrdering Facility: [facility] Address: [address] [place] [address] Performed By: #### 5 7021-8 ####[facility]ATORYCLIA [id number] [address] Hematocrit (Bld) [Volume fraction] 32.2 % Low 39.0-51.0 [facility] Comment on above: Order Comment: Speci men Type: BLOOD SPECIMENOrdering Facility: [facility] Address: [address] [place] [address] Performed By: #### 5 7021-8 ####[facility]ORYCLIA [id number] [address] [place] Hemoglobin (Bld) [Mass/Vol] 9.5 g/dL Low 13.0-17.0 [facility] Comment on above: Order Comment: Speci men Type: BLOOD SPECIMENOrdering Facility: [facility] Address: [address] [place] [address] Performed By: #### 5 7021-8 ####[facility]ORATORYCLIA [id number] [address] OF [facility] IMMATURE GRAN % 0.4 % Normal [facility] Comment on above: Order Comment: Speci men Type: BLOOD SPECIMENOrdering Facility: [facility] Address: [address] [place] [address] Performed By: #### 5 7021-8 ####[facility]ORYCLIA [id number] [address] IMMATURE GRAN ABS 0.04 k/uL Normal <0.10 [facility] Comment on above: Order Comment: Speci men Type: BLOOD SPECIMENOrdering Facility: [facility] Address: [address] [place] [address] Performed By: #### 5 7021-8 ####[facility]ORYCLIA [id number] [address] [place] Lymphocytes (Bld) [#/Vol] 1.71 10*3/uL Normal 1.00-4.00 [facility] Comment on above: Order Comment: Speci men Type: BLOOD SPECIMENOrdering Facility: [facility] Address: [address] [place] [address] Performed By: #### 5 7021-8 ####[facility]ORATORYCLIA [id number] [address] Lymphocytes/100 WBC (Bld) 16.9 % Normal [facility] Comment on above: Order Comment: Speci men Type: BLOOD SPECIMENOrdering Facility: [facility] Address: [address] [place] [address] Performed By: #### 5 7021-8 ####[facility]ATORYCLIA [id number] [address] MCH (RBC) [Entitic mass] 27.9 pg Normal 26.0-34.0 [facility] Comment on above: Order Comment: Speci men Type: BLOOD SPECIMENOrdering Facility: [facility] Address: [address] [place] [address] Performed By: #### 5 7021-8 ####[facility]ATORYCLIA [id number] [address] STATES OF [facility] MCHC (RBC) [Mass/Vol] 29.5 g/dL Low 30.5-36.0 [facility] Comment on above: Order Comment: Speci men Type: BLOOD SPECIMENOrdering Facility: [facility] Address: [address] [place] [address] Performed By: #### 5 7021-8 ####[facility]ORYCLIA [id number] [address] MCV (RBC) [Entitic vol] 94.7 fL Normal 80.0-100.0 [facility] Comment on above: Order Comment: Speci men Type: BLOOD SPECIMENOrdering Facility: [facility] Address: [address] [place] [address] Performed By: #### 5 7021-8 ####[facility]ATORYCLIA [id number] [address] Monocytes (Bld) [#/Vol] 0.69 10*3/uL Normal <0.87 [facility] Comment on above: Order Comment: Speci men Type: BLOOD SPECIMENOrdering Facility: [facility] Address: [address] [address] Performed By: #### 5 7021-8 ####[facility]ORATORYCLIA [id number] [address] [place] Monocytes/100 WBC (Bld) 6.8 % Normal [facility] Comment on above: Order Comment: Speci men Type: BLOOD SPECIMENOrdering Facility: [facility] Address: [address] [place] [address] Performed By: #### 5 7021-8 ####[facility]ORATORYCLIA [id number] [place] [address] [place] Neutrophils (Bld) [#/Vol] 7.19 10*3/uL Normal 1.45-7.50 [facility] Comment on above: Order Comment: Speci men Type: BLOOD SPECIMENOrdering Facility: [facility] Address: [address] [place] [address] Performed By: #### 5 7021-8 ####[facility]ORYCLIA [id number] [address] [place] Neutrophils/100 WBC (Bld) 71.1 % Normal [facility] Comment on above: Order Comment: Speci men Type: BLOOD SPECIMENOrdering Facility: [facility] Address: [address] [place] [address] Performed By: #### 5 7021-8 ####[facility]ATORYCLIA [id number] [address] [place] Nucleated RBC (Bld) [#/Vol] 10*3/uL Normal <0.01 [facility] Comment on above: Order Comment: Speci men Type: BLOOD SPECIMENOrdering Facility: [facility] Address: [address] [place] [address] Performed By: #### 5 7021-8 ####[facility]ORATORYCLIA [id number] [address] [place] Nucleated RBC/100 WBC (Bld) [Ratio] 0.0 /100 WBC Normal [facility] Comment on above: Order Comment: Speci men Type: BLOOD SPECIMENOrdering Facility: [facility] Address: [address] [place] [address] Performed By: #### 5 7021-8 ####[facility]ORYCLIA [id number] [address] [place] Platelet mean volume (Bld) [Entitic vol] 10.3 fL Normal 9.0-12.7 [facility] Comment on above: Order Comment: Speci men Type: BLOOD SPECIMENOrdering Facility: [facility] Address: [address] [place] [address] Performed By: #### 5 7021-8 ####[facility]ORYCLIA [id number] [address] [place] Platelets (Bld) [#/Vol] 403 10*3/uL High 150-400 [facility] Comment on above: Order Comment: Speci men Type: BLOOD SPECIMENOrdering Facility: [facility] Address: [address] [place] [address] Performed By: #### 5 7021-8 ####[facility]ORYCLIA [id number] [address] [place] RBC (Bld) [#/Vol] 3.40 10*6/uL Low 4.20-6.00 [facility] Comment on above: Order Comment: Speci men Type: BLOOD SPECIMENOrdering Facility: [facility] Address: [address] [place], [place] [address] Performed By: #### 5 7021-8 ####[facility]ORYCLIA [id number] [address] [place] WBC (Bld) [#/Vol] 10.12 10*3/uL Normal 3.70-11.00 [facility] Comment on above: Order Comment: Speci men Type: BLOOD SPECIMENOrdering Facility: [facility] Address: [address] [place] [address] Performed By: #### 5 7021-8 ####[facility]ORYCLIA [id number] [address] Magnesium SerPl-mCncon 07-18 Magnesium [Mass/Vol] 2.4 mg/dL High 1.7-2.3 [facility] Comment on above: Order Comment: Speci men Type: BLOOD SPECIMENOrdering Facility: [facility] Address: [address] [place] [address] Performed By: #### 2 4321-2, 79278-9, 2777-1 ####[facility]ORYCLIA [id number] [address] NURSING PROGon 07-18-2021 NURSING PROG Normal [facility] NURSING PROG Normal [facility] Phosphate SerPl-mCncon 07-18 Phosphate [Mass/Vol] 3.9 mg/dL Normal 2.7-4.8 [facility] Comment on above: Order Comment: Speci men Type: BLOOD SPECIMENOrdering Facility: [facility] Address: [address] [place] [address] Performed By: #### 2 4321-2, 11937-3, 2777-1 ####[facility]ORYCLIA [id number] [address] THERAPY NTon 07-18-2021 THERAPY NT Normal [facility] aPTT PPPon 07-18-2021 aPTT Coag (PPP) [Time] 52.3 s High 23.0-32.4 [facility] Comment on above: Order Comment: Speci men Type: BLOOD SPECIMENOrdering Facility: [facility] Address: [address] [place] [address] Performed By: #### 1 4979-9 ####[facility]ORYCLIA [id number] [address] CBC W Auto Differential pane l (Bld)on 07-17-2021 Basophils (Bld) [#/Vol] 0.05 10*3/uL Normal <0.11 [facility] Comment on above: Order Comment: Speci men Type: BLOOD SPECIMENOrdering Facility: [facility] Address: [address] [address] Performed By: #### 5 7021-8 ####[facility] LABORATORYCLIA [id number] [address] [facility] Basophils/100 WBC (Bld) 0.5 % Normal [facility] Comment on above: Order Comment: Speci men Type: BLOOD SPECIMENOrdering Facility: [facility] Address: [address] [place] [address] Performed By: #### 5 7021-8 ####[facility]ORYCLIA [id number] [address] Differential cell count method Nom (Bld) Auto Normal [facility] Comment on above: Order Comment: Speci men Type: BLOOD SPECIMENOrdering Facility: [facility] Address: [address] [place] [address] Performed By: #### 5 7021-8 ####[facility]ORYCLIA [id number] [address] [place] Eosinophils (Bld) [#/Vol] 0.32 10*3/uL Normal <0.46 [facility] Comment on above: Order Comment: Speci men Type: BLOOD SPECIMENOrdering Facility: [facility] Address: [address] [place] [address] Performed By: #### 5 7021-8 ####[facility]ORATORYCLIA [id number] [address] [facility] Eosinophils/100 WBC (Bld) 3.4 % Normal [facility] Comment on above: Order Comment: Speci men Type: BLOOD SPECIMENOrdering Facility: [facility] Address: [address] [place] [address] Performed By: #### 5 7021-8 ####[facility]ORATORYCLIA [id number] [address] [place] Erythrocyte distribution width (RBC) [Ratio] 16.6 % High 11.5-15.0 [facility] Comment on above: Order Comment: Speci men Type: BLOOD SPECIMENOrdering Facility: [facility] Address: [address] [place] [address] Performed By: #### 5 7021-8 ####[facility]ATORYCLIA [id number] [address] OF [facility] Hematocrit (Bld) [Volume fraction] 30.7 % Low 39.0-51.0 [facility] Comment on above: Order Comment: Speci men Type: BLOOD SPECIMENOrdering Facility: [facility] Address: [address] [place] [address] Performed By: #### 5 7021-8 ####[facility]ATORYCLIA [id number] [address] Hemoglobin (Bld) [Mass/Vol] 9.0 g/dL Low 13.0-17.0 [facility] Comment on above: Order Comment: Speci men Type: BLOOD SPECIMENOrdering Facility: [facility] Address: [address] [place] [address] Performed By: #### 5 7021-8 ####[facility]ORYCLIA [id number] [address] IMMATURE GRAN % 0.6 % Normal [facility] Comment on above: Order Comment: Speci men Type: BLOOD SPECIMENOrdering Facility: [facility] Address: [address] [place] [address] Performed By: #### 5 7021-8 ####[facility]ORYCLIA [id number] [address] IMMATURE GRAN ABS 0.06 k/uL Normal <0.10 [facility] Comment on above: Order Comment: Speci men Type: BLOOD SPECIMENOrdering Facility: [facility] Address: [address] [place] [address] Performed By: #### 5 7021-8 ####[facility]ATORYCLIA [id number] [place] Lymphocytes (Bld) [#/Vol] 1.61 10*3/uL Normal 1.00-4.00 [facility] Comment on above: Order Comment: Speci men Type: BLOOD SPECIMENOrdering Facility: [facility] Address: [address] [place] [address] Performed By: #### 5 7021-8 ####[facility]ATORYCLIA [id number] [address] OF [facility] Lymphocytes/100 WBC (Bld) 17.3 % Normal [facility] Comment on above: Order Comment: Speci men Type: BLOOD SPECIMENOrdering Facility: [facility] Address: [address] [place] [address] Performed By: #### 5 7021-8 ####[facility]ATORYCLIA [id number] [address] STATES OF [facility] MCH (RBC) [Entitic mass] 26.9 pg Normal 26.0-34.0 [facility] Comment on above: Order Comment: Speci men Type: BLOOD SPECIMENOrdering Facility: [facility] Address: [address] [place] [address] Performed By: #### 5 7021-8 ####[facility]ATORYCLIA [id number] [address] STATES OF [facility] MCHC (RBC) [Mass/Vol] 29.3 g/dL Low 30.5-36.0 [facility] Comment on above: Order Comment: Speci men Type: BLOOD SPECIMENOrdering Facility: [facility] Address: [address] [place] [address] Performed By: #### 5 7021-8 ####[facility]ATORYCLIA [id number] [address] MCV (RBC) [Entitic vol] 91.9 fL Normal 80.0-100.0 [facility] Comment on above: Order Comment: Speci men Type: BLOOD SPECIMENOrdering Facility: [facility] Address: [address] [place] [address] Performed By: #### 5 7021-8 ####[facility] LABORATORYCLIA [id number] [place] [address] [place] Monocytes (Bld) [#/Vol] 0.61 10*3/uL Normal <0.87 [facility] Comment on above: Order Comment: Speci men Type: BLOOD SPECIMENOrdering Facility: [facility] Address: [address] [place] [address] Performed By: #### 5 7021-8 ####[facility]ORATORYCLIA [id number] [address] [place] Monocytes/100 WBC (Bld) 6.6 % Normal [facility] Comment on above: Order Comment: Speci men Type: BLOOD SPECIMENOrdering Facility: [facility] Address: [address] [place] [address] Performed By: #### 5 7021-8 ####[facility]ATORYCLIA [id number] [address] [place] Neutrophils (Bld) [#/Vol] 6.64 10*3/uL Normal 1.45-7.50 [facility] Comment on above: Order Comment: Speci men Type: BLOOD SPECIMENOrdering Facility: [facility] Address: [address] [place] [address] Performed By: #### 5 7021-8 ####[facility]ORATORYCLIA [id number] [address] [place] Neutrophils/100 WBC (Bld) 71.6 % Normal [facility] Comment on above: Order Comment: Speci men Type: BLOOD SPECIMENOrdering Facility: [facility] Address: [address] [place] [address] Performed By: #### 5 7021-8 ####[facility]ORATORYCLIA [id number] [place] [address] [place] Nucleated RBC (Bld) [#/Vol] 10*3/uL Normal <0.01 [facility] Comment on above: Order Comment: Speci men Type: BLOOD SPECIMENOrdering Facility: [facility] Address: [address] [place] [address] Performed By: #### 5 7021-8 ####[facility]ATORYCLIA [id number] [address] [place] Nucleated RBC/100 WBC (Bld) [Ratio] 0.0 /100 WBC Normal [facility] Comment on above: Order Comment: Speci men Type: BLOOD SPECIMENOrdering Facility: [facility] Address: [address] [place] [address] Performed By: #### 5 7021-8 ####[facility]ORATORYCLIA [id number] [place] [address] [place] Platelet mean volume (Bld) [Entitic vol] 10.1 fL Normal 9.0-12.7 [facility] Comment on above: Order Comment: Speci men Type: BLOOD SPECIMENOrdering Facility: [facility] Address: [address] [place] [address] Performed By: #### 5 7021-8 ####[facility]ATORYCLIA [id number] [place] [address] [place] Platelets (Bld) [#/Vol] 387 10*3/uL Normal 150-400 [facility] Comment on above: Order Comment: Speci men Type: BLOOD SPECIMENOrdering Facility: [facility] Address: [address] Performed By: #### 5 7021-8 ####[facility]ATORYCLIA [id number] [place] [address] [place] RBC (Bld) [#/Vol] 3.34 10*6/uL Low 4.20-6.00 [facility] Comment on above: Order Comment: Speci men Type: BLOOD SPECIMENOrdering Facility: [facility] Address: [address] [place] [address] Performed By: #### 5 7021-8 ####[facility] LABORATORYCLIA [id number] [address] [place] WBC (Bld) [#/Vol] 9.29 10*3/uL Normal 3.70-11.00 [facility] Comment on above: Order Comment: Speci men Type: BLOOD SPECIMENOrdering Facility: [facility] Address: [address] [place] [address] Performed By: #### 5 7021-8 ####[facility] LABORATORYCLIA [id number] [address] CONSULT PROGon 07-17-2021 CONSULT PROG Normal [facility] Magnesium SerPl-mCncon 07-17 Magnesium [Mass/Vol] 2.3 mg/dL Normal 1.7-2.3 [facility] Comment on above: Order Comment: Speci men Type: BLOOD SPECIMENOrdering Facility: [facility] Address: [address] [place] [address] Performed By: #### 2 777-1, 90908-2 ####[facility]ORATORYCLIA [id number] [address] NURSING PROGon 07-17-2021 NURSING PROG Normal [facility] NURSING PROG Normal [facility] NURSING PROG Normal [facility] Phosphate SerPl-mCncon 07-17 Phosphate [Mass/Vol] 3.6 mg/dL Normal 2.7-4.8 [facility] Comment on above: Order Comment: Speci men Type: BLOOD SPECIMENOrdering Facility: [facility] Address: [address] [place] [address] Performed By: #### 2 777-1, 32966-7 ####[facility]ORATORYCLIA [id number] [address] aPTT PPPon 07-17-2021 aPTT Coag (PPP) [Time] 57.2 s High 23.0-32.4 [facility] Comment on above: Order Comment: Speci men Type: BLOOD SPECIMENOrdering Facility: [facility] Address: [address] [place] [address] Performed By: #### 1 4979-9 ####[facility]ORATORYCLIA [id number] [place] [address] [place] Basic metabolic 2000 panelon 07-16-2021 Anion gap [Moles/Vol] 5 mmol/L Low 9-18 [facility] Comment on above: Order Comment: Speci men Type: BLOOD SPECIMENOrdering Facility: [facility] Address: [address] [place] [address] Performed By: #### 2 777-1, 78683-9, ####[facility]ORATORYCLIA [id number] [place] [address] [place] Calcium [Mass/Vol] 9.1 mg/dL Normal 8.5-10.2 [facility] Comment on above: Order Comment: Speci men Type: BLOOD SPECIMENOrdering Facility: [facility] Address: [address] [place] [address] Performed By: #### 2 777-1, 07810-3, ####[facility]ORATORYCLIA [id number] [place] [address] [place] Chloride [Moles/Vol] 101 mmol/L Normal 97-105 [facility] Comment on above: Order Comment: Speci men Type: BLOOD SPECIMENOrdering Facility: [facility] Address: [address] [place] [address] Performed By: #### 2 777-1, 21713-0, ####[facility]ATORYCLIA [id number] [place] [address] [place] CO2 [Moles/Vol] 35 mmol/L High 22-30 [facility] Comment on above: Order Comment: Speci men Type: BLOOD SPECIMENOrdering Facility: [facility] Address: [address] [place] [address] Performed By: #### 2 777-1, 56499-2, ####[facility]ORATORYCLIA [id number] [place] [address] [place] Creatinine [Mass/Vol] 0.73 mg/dL Normal 0.73-1.22 [facility] Comment on above: Order Comment: Shira feldman Type: BLOOD SPECIMENOrdering Facility: [facility] Address: [address] [place] [address] Performed By: #### 2 777-1, 56600-6, ####[facility]ORATORYIA [id number] [place] [address] [facility] ESTIMATED GLOMERULAR FILTRATION RATE 98 mL/min/1.73m??? Normal >=60 [facility] Comment on above: Order Comment: Shira feldman Type: BLOOD SPECIMENOrdering Facility: [facility] Address: [address] [place] [address] Result Comment: Luzmaria mated Glomerular Filtration Rate [...] actual GFR. Performed By: #### 2 777-1, 04344-4, ####[facility] HOSPITALIA [id number] [place] [address] [place] [facility] Glucose [Mass/Vol] 133 mg/dL High 74-99 [facility] Comment on above: Order Comment: Shira feldman Type: BLOOD SPECIMENOrdering Facility: [facility] Address: [address] [place] [address] Result Comment: The [place] Diabetes [employer] (ADA) provides guidance for cutoff [...] Standards of Medical Care in Diabetes 2016, [place] [employer]. Diabetes Care. 2016.39(Suppl 1). Performed By: #### 2 777-1, 57727-0, ####[facility]ATORYCLIA [id number] [address] STATES OF [facility] Potassium [Moles/Vol] 4.2 mmol/L Normal 3.7-5.1 [facility] Comment on above: Order Comment: Speci francia Type: BLOOD SPECIMENOrdering Facility: [facility] Address: [address] [place] [address] Performed By: #### 2 777-1, , ####[facility]ORATORYCLIA [id number] [address] Sodium [Moles/Vol] 141 mmol/L Normal 136-144 [facility] Comment on above: Order Comment: Shira feldman Type: BLOOD SPECIMENOrdering Facility: [facility] Address: [address] [place] [address] Performed By: #### 2 777-1, , ####[facility]ORATORYCLIA [id number] [address] STATES [facility] Urea nitrogen [Mass/Vol] 21 mg/dL Normal 9-24 [facility] Comment on above: Order Comment: Johni francia Type: BLOOD SPECIMENOrdering Facility: [facility] Address: [address] [place] [address] Performed By: #### 2 777-1, , ####[facility]ORATORYCLIA [id number] [address] STATES OF [facility] CBC W Auto Differential pane l (Bld)on 07-16-2021 Basophils (Bld) [#/Vol] 0.06 10*3/uL Normal <0.11 [facility] Comment on above: Order Comment: Speci men Type: BLOOD SPECIMENOrdering Facility: [facility] Address: [address] [place] [address] Performed By: #### 5 7021-8 ####[facility] LABORATORYCLIA [id number] [address] [place] Basophils/100 WBC (Bld) 0.7 % Normal [facility] Comment on above: Order Comment: Speci men Type: BLOOD SPECIMENOrdering Facility: [facility] Address: [address] [place] [address] Performed By: #### 5 7021-8 ####[facility]ORATORYCLIA [id number] [address] Differential cell count method Nom (Bld) Auto Normal [facility] Comment on above: Order Comment: Speci men Type: BLOOD SPECIMENOrdering Facility: [facility] Address: [address] [place] [address] Performed By: #### 5 7021-8 ####[facility]ORATORYCLIA [id number] [address] [place] Eosinophils (Bld) [#/Vol] 0.35 10*3/uL Normal <0.46 [facility] Comment on above: Order Comment: Speci men Type: BLOOD SPECIMENOrdering Facility: [facility] Address: [address] [place] [address] Performed By: #### 5 7021-8 ####[facility]ORATORYCLIA [id number] [address] STATES [facility] Eosinophils/100 WBC (Bld) 3.9 % Normal [facility] Comment on above: Order Comment: Speci men Type: BLOOD SPECIMENOrdering Facility: [facility] Address: [address] [place] [address] Performed By: #### 5 7021-8 ####[facility] LABORATORYCLIA [id number] [address] [place] Erythrocyte distribution width (RBC) [Ratio] 16.5 % High 11.5-15.0 [facility] Comment on above: Order Comment: Speci men Type: BLOOD SPECIMENOrdering Facility: [facility] Address: [address] [place] [address] Performed By: #### 5 7021-8 ####[facility]ORATORYCLIA [id number] [address] OF [facility] Hematocrit (Bld) [Volume fraction] 30.9 % Low 39.0-51.0 [facility] Comment on above: Order Comment: Speci men Type: BLOOD SPECIMENOrdering Facility: [facility] Address: [address] [place] [address] Performed By: #### 5 7021-8 ####[facility]ORATORYCLIA [id number] [address] OF [facility] Hemoglobin (Bld) [Mass/Vol] 9.1 g/dL Low 13.0-17.0 [facility] Comment on above: Order Comment: Speci men Type: BLOOD SPECIMENOrdering Facility: [facility] Address: [address] [place] [address] Performed By: #### 5 7021-8 ####[facility]ORATORYCLIA [id number] [address] IMMATURE GRAN % 0.4 % Normal [facility] Comment on above: Order Comment: Speci men Type: BLOOD SPECIMENOrdering Facility: [facility] Address: [address] [place] [address] Performed By: #### 5 7021-8 ####[facility]ORATORYCLIA [id number] [address] IMMATURE GRAN ABS 0.04 k/uL Normal <0.10 [facility] Comment on above: Order Comment: Speci men Type: BLOOD SPECIMENOrdering Facility: [facility] Address: [address] [place] [address] Performed By: #### 5 7021-8 ####[facility]ORATORYCLIA [id number] [address] OF [facility] Lymphocytes (Bld) [#/Vol] 1.35 10*3/uL Normal 1.00-4.00 [facility] Comment on above: Order Comment: Speci men Type: BLOOD SPECIMENOrdering Facility: [facility] Address: [address] [place] [address] Performed By: #### 5 7021-8 ####[facility]ORATORYCLIA [id number] [address] Lymphocytes/100 WBC (Bld) 15.0 % Normal [facility] Comment on above: Order Comment: Speci men Type: BLOOD SPECIMENOrdering Facility: [facility] Address: [address] [place] [address] Performed By: #### 5 7021-8 ####[facility]ORATORYCLIA [id number] [address] STATES OF [facility] MCH (RBC) [Entitic mass] 27.1 pg Normal 26.0-34.0 [facility] Comment on above: Order Comment: Speci men Type: BLOOD SPECIMENOrdering Facility: [facility] Address: [address] [place] [address] Performed By: #### 5 7021-8 ####[facility]ORATORYCLIA [id number] [address] [place] MCHC (RBC) [Mass/Vol] 29.4 g/dL Low 30.5-36.0 [facility] Comment on above: Order Comment: Speci men Type: BLOOD SPECIMENOrdering Facility: [facility] Address: [address] [place] [address] Performed By: #### 5 7021-8 ####[facility]ORATORYCLIA [id number] [address] MCV (RBC) [Entitic vol] 92.0 fL Normal 80.0-100.0 [facility] Comment on above: Order Comment: Speci men Type: BLOOD SPECIMENOrdering Facility: [facility] Address: [address] [place] [place] [address] Performed By: #### 5 7021-8 ####[facility]ORATORYCLIA [id number] [address] [place] Monocytes (Bld) [#/Vol] 0.53 10*3/uL Normal <0.87 [facility] Comment on above: Order Comment: Speci men Type: BLOOD SPECIMENOrdering Facility: [facility] Address: [address] [place] [address] Performed By: #### 5 7021-8 ####[facility]ORATORYCLIA [id number] [address] [place] Monocytes/100 WBC (Bld) 5.9 % Normal [facility] Comment on above: Order Comment: Speci men Type: BLOOD SPECIMENOrdering Facility: [facility] Address: [address] [place] [address] Performed By: #### 5 7021-8 ####[facility]ORATORYCLIA [id number] [address] [place] Neutrophils (Bld) [#/Vol] 6.67 10*3/uL Normal 1.45-7.50 [facility] Comment on above: Order Comment: Speci men Type: BLOOD SPECIMENOrdering Facility: [facility] Address: [address] [place] [address] Performed By: #### 5 7021-8 ####[facility]ORATORYCLIA [id number] [address] [place] Neutrophils/100 WBC (Bld) 74.1 % Normal [facility] Comment on above: Order Comment: Speci men Type: BLOOD SPECIMENOrdering Facility: [facility] Address: [address] [place] [address] Performed By: #### 5 7021-8 ####[facility]ORATORYCLIA [id number] [address] [place] Nucleated RBC (Bld) [#/Vol] 10*3/uL Normal <0.01 [facility] Comment on above: Order Comment: Speci men Type: BLOOD SPECIMENOrdering Facility: [facility] Address: [address] [place] [address] Performed By: #### 5 7021-8 ####[facility]ORATORYCLIA [id number] [address] [place] Nucleated RBC/100 WBC (Bld) [Ratio] 0.0 /100 WBC Normal [facility] Comment on above: Order Comment: Speci men Type: BLOOD SPECIMENOrdering Facility: [facility] Address: [address] [place] [address] Performed By: #### 5 7021-8 ####[facility]ORATORYCLIA [id number] [place] [address] [place] Platelet mean volume (Bld) [Entitic vol] 9.9 fL Normal 9.0-12.7 [facility] Comment on above: Order Comment: Speci men Type: BLOOD SPECIMENOrdering Facility: [facility] Address: [address] [place] [address] Performed By: #### 5 7021-8 ####[facility]ORATORYCLIA [id number] [address] [place] Platelets (Bld) [#/Vol] 391 10*3/uL Normal 150-400 [facility] Comment on above: Order Comment: Speci men Type: BLOOD SPECIMENOrdering Facility: [facility] Address: [address] Performed By: #### 5 7021-8 ####[facility]ATORYCLIA [id number] [address] [place] RBC (Bld) [#/Vol] 3.36 10*6/uL Low 4.20-6.00 [facility] Comment on above: Order Comment: Speci men Type: BLOOD SPECIMENOrdering Facility: [facility] Address: [address] [place] [address] Performed By: #### 5 7021-8 ####[facility]ORATORYCLIA [id number] [address] [place] WBC (Bld) [#/Vol] 9.00 10*3/uL Normal 3.70-11.00 [facility] Comment on above: Order Comment: Speci men Type: BLOOD SPECIMENOrdering Facility: [facility] Address: [address] [place] [address] Performed By: #### 5 7021-8 ####[facility]ORATORYCLIA [id number] [address] [place] CONSULT PROGon 07-16-2021 CONSULT PROG Normal [facility] CONSULT PROG Normal [facility] Magnesium SerPl-mCncon 07-16 Magnesium [Mass/Vol] 2.3 mg/dL Normal 1.7-2.3 [facility] Comment on above: Order Comment: Speci men Type: BLOOD SPECIMENOrdering Facility: [facility] Address: [address] [place] [address] Performed By: #### 2 777-1, 32338-2, ####[facility]ATORYCLIA [id number] [address] NURSING PROGon 07-16-2021 NURSING PROG Normal [facility] Phosphate SerPl-mCncon 07-16 Phosphate [Mass/Vol] 3.6 mg/dL Normal 2.7-4.8 [facility] Comment on above: Order Comment: Speci men Type: BLOOD SPECIMENOrdering Facility: [facility] Address: [address] [place] [address] Performed By: #### 2 777-1, 07012-6, 75341-4 ####[facility]ORATORYCLIA [id number] [address] OF [facility] Vancomycin random [Mass/Vol] on 07-16-2021 Vancomycin [Mass/Vol] 16.9 ug/mL Normal 10.0-20.0 [facility] Comment on above: Order Comment: Speci men Type: BLOOD SPECIMENOrdering Facility: [facility] Address: [facility] [place] [address] Result Comment: Refe rence ranges and high/low indicator flags are provided as general guidelines only. The treating physician must determine appropriate target levels/dosing based on the specific clinical situation. Performed By: #### 4 091-5 ####[facility]ORATORYCLIA [id number] [address] STATES OF [facility] aPTT PPPon 07-16-2021 aPTT Coag (PPP) [Time] 57.2 s High 23.0-32.4 [facility] Comment on above: Order Comment: Speci men Type: BLOOD SPECIMENOrdering Facility: [facility] Address: [facility] [place] [address] Performed By: #### 1 4979-9 ####[facility]ORATORYCLIA [id number] [address] [place] ALLIED HEALTHon 07-15-2021 ALLIED HEALTH Normal [facility] Basic metabolic 2000 panelon 07-15-2021 Anion gap [Moles/Vol] 11 mmol/L Normal 9-18 [facility] Comment on above: Order Comment: Speci men Type: BLOOD SPECIMENOrdering Facility: [facility] Address: [facility] [place] [address] Performed By: #### 2 4321-2, 92473-2, 2777- ####[facility]ORATORYCLIA [id number] [place] [address] [place] Calcium [Mass/Vol] 8.8 mg/dL Normal 8.5-10.2 [facility] Comment on above: Order Comment: Speci men Type: BLOOD SPECIMENOrdering Facility: [facility] Address: [facility] [place] [address] Performed By: #### 2 4321-2, 32388-4, 2777-1 ####[facility]ORATORYCLIA [id number] [place] [address] [place] Chloride [Moles/Vol] 101 mmol/L Normal 97-105 [facility] Comment on above: Order Comment: Speci men Type: BLOOD SPECIMENOrdering Facility: [facility] Address: [address] [place] [address] Performed By: #### 2 4321-2, , 2776-05 ####[facility]ORATORYCLIA [id number] [address] OF [facility] CO2 [Moles/Vol] 31 mmol/L High 22-30 [facility] Comment on above: Order Comment: Speci men Type: BLOOD SPECIMENOrdering Facility: [facility] Address: [address] [place] [address] Performed By: #### 2 4321-2, , 2776-05 ####[facility]ITALCLIA [id number] [address] Creatinine [Mass/Vol] 0.76 mg/dL Normal 0.73-1.22 [facility] Comment on above: Order Comment: Speci men Type: BLOOD SPECIMENOrdering Facility: [facility] Address: [address] [place] [address] Performed By: #### 2 4321-2, , 2776-05 ####[facility] HOSPITALCLIA [id number] [address] ESTIMATED GLOMERULAR FILTRATION RATE 97 mL/min/1.73m??? Normal >=60 [facility] Comment on above: Order Comment: Speci men Type: BLOOD SPECIMENOrdering Facility: [facility] Address: [address] [place] [address] Result Comment: Luzmaria mated Glomerular Filtration Rate [...] Performed By: #### 2 4321-2, , 2776-05 ####[facility] HOSPITALCLIA [id number] [place] [address] [place] Glucose [Mass/Vol] 115 mg/dL High 74-99 [facility] Comment on above: Order Comment: Speci men Type: BLOOD SPECIMENOrdering Facility: [facility] Address: [address] [place], [place] [address] Result Comment: The [place] Diabetes Association (ADA) provides guidance for cutoff [...] Standards of Medical Care in Diabetes 2016, [place] [employer]. Diabetes Care. 2016.39(Suppl 1). Performed By: #### 2 4321-2, , 2776-05 ####[facility]ORATORYCLIA [id number] [place] [address] [place] Potassium [Moles/Vol] 4.0 mmol/L Normal 3.7-5.1 [facility] Comment on above: Order Comment: Speci men Type: BLOOD SPECIMENOrdering Facility: [facility] Address: [address] [place], [place] [address] Performed By: #### 2 4321-2, , 2776-05 ####[facility]ORATORYCLIA [id number] [place] [address] [place] Sodium [Moles/Vol] 143 mmol/L Normal 136-144 [facility] Comment on above: Order Comment: Johni men Type: BLOOD SPECIMENOrdering Facility: [facility] Address: [address] [place], [place] [address] Performed By: #### 2 4321-2, , 2776-05 ####[facility]ORATORYCLIA [id number] [place] [address] [place] Urea nitrogen [Mass/Vol] 17 mg/dL Normal 9-24 [facility] Comment on above: Order Comment: Speci men Type: BLOOD SPECIMENOrdering Facility: [facility] Address: [address] [place] [address] Performed By: #### 2 4321-2, 58886-2, 2777-1 ####[facility]ORATORYCLIA [id number] [address] [place] CASE MANAGEMon 07-15-2021 CASE MANAGEM Normal [facility] CBC panel Auto (Bld)on 07-15 Erythrocyte distribution width (RBC) [Ratio] 16.4 % High 11.5-15.0 [facility] Comment on above: Order Comment: Speci men Type: BLOOD SPECIMENOrdering Facility: [facility] Address: [address] [place] [address] Performed By: #### 5 8410-2 ####[facility]ORATORYCLIA [id number] [address] [place] Hematocrit (Bld) [Volume fraction] 30.3 % Low 39.0-51.0 [facility] Comment on above: Order Comment: Speci men Type: BLOOD SPECIMENOrdering Facility: [facility] Address: [address] [place] [address] Performed By: #### 5 8410-2 ####[facility]ORATORYCLIA [id number] [address] [place] Hemoglobin (Bld) [Mass/Vol] 9.2 g/dL Low 13.0-17.0 [facility] Comment on above: Order Comment: Speci men Type: BLOOD SPECIMENOrdering Facility: [facility] Address: [address] [place] [address] Performed By: #### 5 8410-2 ####[facility]ORATORYCLIA [id number] [place] [address] [place] MCH (RBC) [Entitic mass] 28.3 pg Normal 26.0-34.0 [facility] Comment on above: Order Comment: Speci men Type: BLOOD SPECIMENOrdering Facility: [facility] Address: [address] [place] [address] Performed By: #### 5 8410-2 ####[facility]ORATORYCLIA [id number] [address] STATES [facility] MCHC (RBC) [Mass/Vol] 30.4 g/dL Low 30.5-36.0 [facility] Comment on above: Order Comment: Speci men Type: BLOOD SPECIMENOrdering Facility: [facility] Address: [address] [place] [address] Performed By: #### 5 8410-2 ####[facility]ORATORYCLIA [id number] [address] [place] MCV (RBC) [Entitic vol] 93.2 fL Normal 80.0-100.0 [facility] Comment on above: Order Comment: Speci men Type: BLOOD SPECIMENOrdering Facility: [facility] Address: [address] [place] [address] Performed By: #### 5 8410-2 ####[facility]ATORYCLIA [id number] [address] Nucleated RBC (Bld) [#/Vol] 10*3/uL Normal <0.01 [facility] Comment on above: Order Comment: Speci men Type: BLOOD SPECIMENOrdering Facility: [facility] Address: [address] [place] [address] Performed By: #### 5 8410-2 ####[facility]ORATORYCLIA [id number] [address] Platelet mean volume (Bld) [Entitic vol] 9.9 fL Normal 9.0-12.7 [facility] Comment on above: Order Comment: Speci men Type: BLOOD SPECIMENOrdering Facility: [facility] Address: [address] [place] [address] Performed By: #### 5 8410-2 ####[facility]ORATORYCLIA [id number] [address] Platelets (Bld) [#/Vol] 381 10*3/uL Normal 150-400 [facility] Comment on above: Order Comment: Speci men Type: BLOOD SPECIMENOrdering Facility: [facility] Address: [address] [place] [address] Performed By: #### 5 8410-2 ####[facility]ORATORYCLIA [id number] [address] OF [facility] RBC (Bld) [#/Vol] 3.25 10*6/uL Low 4.20-6.00 [facility] Comment on above: Order Comment: Speci men Type: BLOOD SPECIMENOrdering Facility: [facility] Address: [address] [place] [address] Performed By: #### 5 8410-2 ####[facility]ORATORYCLIA [id number] [address] WBC (Bld) [#/Vol] 8.80 10*3/uL Normal 3.70-11.00 [facility] Comment on above: Order Comment: Speci men Type: BLOOD SPECIMENOrdering Facility: [facility] Address: [address] [place] [address] Performed By: #### 5 8410-2 ####[facility]ORATORYCLIA [id number] [address] OF [facility] Magnesium SerPl-mCncon 07-15 Magnesium [Mass/Vol] 2.2 mg/dL Normal 1.7-2.3 [facility] Comment on above: Order Comment: Speci men Type: BLOOD SPECIMENOrdering Facility: [facility] Address: [address] [place] [address] Performed By: #### 2 4321-2, 55379-7, 2777-1 ####[facility]ORATORYCLIA [id number] [address] NURSING PROGon 07-15-2021 NURSING PROG Normal [facility] NURSING PROG Normal [facility] NURSING PROG Normal [facility] NUTRITIONon 07-15-2021 NUTRITION Normal [facility] Phosphate SerPl-mCncon 07-15 Phosphate [Mass/Vol] 3.4 mg/dL Normal 2.7-4.8 [facility] Comment on above: Order Comment: Speci men Type: BLOOD SPECIMENOrdering Facility: [facility] Address: [address] [place] [address] Performed By: #### 2 4321-2, 34985-0, 2777-1 ####[facility]ORATORYCLIA [id number] [address] THERAPY NTon 07-15-2021 THERAPY NT Normal [facility] US DVT UPPER LTon 07-15-2021 US DVT UPPER LT Normal [facility] XR CHEST 1V FRONTALon 2021 XR CHEST 1V FRONTAL Normal [facility] aPTT PPPon 07-15-2021 aPTT Coag (PPP) [Time] 59.9 s High 23.0-32.4 [facility] Comment on above: Order Comment: Speci men Type: BLOOD SPECIMENOrdering Facility: [facility] Address: [address] [place] [address] Performed By: #### 1 4979-9 ####[facility]ATORYCLIA [id number] [address] [place] Basic metabolic 2000 panelon 07-14-2021 Anion gap [Moles/Vol] 9 mmol/L Normal 9-18 [facility] Comment on above: Order Comment: Speci men Type: BLOOD SPECIMENOrdering Facility: [facility] Address: [address] [place] [address] Performed By: #### 1 9123-9, 2777-1, 74593-4 ####[facility]ATORYCLIA [id number] [address] [place] Calcium [Mass/Vol] 8.5 mg/dL Normal 8.5-10.2 [facility] Comment on above: Order Comment: Speci men Type: BLOOD SPECIMENOrdering Facility: [facility] Address: [address] [place] [address] Performed By: #### 1 9123-9, 27711-04, 74343-4 ####[facility]ATORYCLIA [id number] [place] [address] [place] Chloride [Moles/Vol] 99 mmol/L Normal 97-105 [facility] Comment on above: Order Comment: Speci men Type: BLOOD SPECIMENOrdering Facility: [facility] Address: [address] [place] [address] Performed By: #### 1 9123-9, 2776-05, ####[facility]ATORYCLIA [id number] [address] STATES OF [facility] CO2 [Moles/Vol] 31 mmol/L High 22-30 [facility] Comment on above: Order Comment: Speci men Type: BLOOD SPECIMENOrdering Facility: [facility] Address: [address] [place] [address] Performed By: #### 1 9123-9, 2776-05, ####[facility]ATORYCLIA [id number] [address] [place] Creatinine [Mass/Vol] 0.74 mg/dL Normal 0.73-1.22 [facility] Comment on above: Order Comment: Speci men Type: BLOOD SPECIMENOrdering Facility: [facility] Address: [address] [place] [address] Performed By: #### 1 9123-9, 2776-05, 54418-6 ####[facility]ATORYCLIA [id number] [address] ESTIMATED GLOMERULAR FILTRATION RATE 98 mL/min/1.73m??? Normal >=60 [facility] Comment on above: Order Comment: Speci men Type: BLOOD SPECIMENOrdering Facility: [facility] Address: [address] [phone] Result Comment: Luzmaria mated Glomerular Filtration Rate [...] GFR. Performed By: #### 1 9123-9, 2777-, 40428-7 ####[facility] HOSPITALIA [id number] [place] [address] [place] Glucose [Mass/Vol] 117 mg/dL High 74-99 [facility] Comment on above: Order Comment: Shira feldman Type: BLOOD SPECIMENOrdering Facility: [facility] Address: [address] [address] Result Comment: The [place] Diabetes Association (ADA) provides guidance for cutoff [...] Standards of Medical Care in Diabetes 2016, [place] [employer]. Diabetes Care. 2016.39(Suppl 1). Performed By: #### 1 9123-9, 2777, 20006-4 ####[facility]ORATORYIA [id number] [place] [address] [place] Potassium [Moles/Vol] 3.7 mmol/L Normal 3.7-5.1 [facility] Comment on above: Order Comment: Shira feldman Type: BLOOD SPECIMENOrdering Facility: [facility] Address: [address] [phone] Performed By: #### 1 9123-9, 2777-, 14235-0 ####[facility]ORATORYCLIA [id number] [address] STATES [facility] Sodium [Moles/Vol] 139 mmol/L Normal 136-144 [facility] Comment on above: Order Comment: Speci men Type: BLOOD SPECIMENOrdering Facility: [facility] Address: [address] [place] [address] Performed By: #### 1 9123-9, 2777, 66576-3 ####[facility]ATORYCLIA [id number] [address] STATES OF [facility] Urea nitrogen [Mass/Vol] 16 mg/dL Normal 9-24 [facility] Comment on above: Order Comment: Speci men Type: BLOOD SPECIMENOrdering Facility: [facility] Address: [address] [place] [address] Performed By: #### 1 9123-9, 2777, 76063-7 ####[facility]ATORYCLIA [id number] [address] STATES OF [facility] CBC panel Auto (Bld)on 07-14 Erythrocyte distribution width (RBC) [Ratio] 16.2 % High 11.5-15.0 [facility] Comment on above: Order Comment: Speci men Type: BLOOD SPECIMENOrdering Facility: [facility] Address: [address] [place] [address] Performed By: #### 5 8410-2 ####[facility]ORATORYCLIA [id number] [address] Hematocrit (Bld) [Volume fraction] 29.7 % Low 39.0-51.0 [facility] Comment on above: Order Comment: Speci men Type: BLOOD SPECIMENOrdering Facility: [facility] Address: [address] [place] [address] Performed By: #### 5 8410-2 ####[facility]ORATORYCLIA [id number] [address] Hemoglobin (Bld) [Mass/Vol] 8.8 g/dL Low 13.0-17.0 [facility] Comment on above: Order Comment: Speci men Type: BLOOD SPECIMENOrdering Facility: [facility] Address: [address] [place] [address] Performed By: #### 5 8410-2 ####[facility]ATORYCLIA [id number] [address] STATES [facility] MCH (RBC) [Entitic mass] 27.5 pg Normal 26.0-34.0 [facility] Comment on above: Order Comment: Speci men Type: BLOOD SPECIMENOrdering Facility: [facility] Address: [address] [place] [address] Performed By: #### 5 8410-2 ####[facility]ATORYCLIA [id number] [address] [place] MCHC (RBC) [Mass/Vol] 29.6 g/dL Low 30.5-36.0 [facility] Comment on above: Order Comment: Speci men Type: BLOOD SPECIMENOrdering Facility: [facility] Address: [address] [place] [address] Performed By: #### 5 8410-2 ####[facility]ORATORYCLIA [id number] [address] STATES OF [facility] MCV (RBC) [Entitic vol] 92.8 fL Normal 80.0-100.0 [facility] Comment on above: Order Comment: Speci men Type: BLOOD SPECIMENOrdering Facility: [facility] Address: [address] [place] [address] Performed By: #### 5 8410-2 ####[facility]ORATORYCLIA [id number] [address] Nucleated RBC (Bld) [#/Vol] 10*3/uL Normal <0.01 [facility] Comment on above: Order Comment: Speci men Type: BLOOD SPECIMENOrdering Facility: [facility] Address: [address] [place] [address] Performed By: #### 5 8410-2 ####[facility]ORATORYCLIA [id number] [address] [place] Platelet mean volume (Bld) [Entitic vol] 9.6 fL Normal 9.0-12.7 [facility] Comment on above: Order Comment: Speci men Type: BLOOD SPECIMENOrdering Facility: [facility] Address: [address] [place] [address] Performed By: #### 5 8410-2 ####[facility]ORATORYCLIA [id number] [place] [address] [place] Platelets (Bld) [#/Vol] 354 10*3/uL Normal 150-400 [facility] Comment on above: Order Comment: Speci men Type: BLOOD SPECIMENOrdering Facility: [facility] Address: [address] [place] [address] Performed By: #### 5 8410-2 ####[facility]ORATORYCLIA [id number] [address] [place] RBC (Bld) [#/Vol] 3.20 10*6/uL Low 4.20-6.00 [facility] Comment on above: Order Comment: Speci men Type: BLOOD SPECIMENOrdering Facility: [facility] Address: [address] [place] [address] Performed By: #### 5 8410-2 ####[facility]ORATORYCLIA [id number] [place] [address] [place] WBC (Bld) [#/Vol] 9.41 10*3/uL Normal 3.70-11.00 [facility] Comment on above: Order Comment: Speci men Type: BLOOD SPECIMENOrdering Facility: [facility] Address: [address] [place] [address] Performed By: #### 5 8410-2 ####[facility]ORATORYCLIA [id number] [address] OF [facility] CONSULT PROGon 07-14-2021 CONSULT PROG Normal [facility] Magnesium SerPl-mCncon 07-14 Magnesium [Mass/Vol] 2.2 mg/dL Normal 1.7-2.3 [facility] Comment on above: Order Comment: Speci men Type: BLOOD SPECIMENOrdering Facility: [facility] Address: [address] [place] [address] Performed By: #### 1 9123-9, 2777-1, 30213-8 ####[facility]ORATORYCLIA [id number] [address] OF [facility] NURSING PROGon 07-14-2021 NURSING PROG Normal [facility] Phosphate SerPl-mCncon 07-14 Phosphate [Mass/Vol] 3.6 mg/dL Normal 2.7-4.8 [facility] Comment on above: Order Comment: Speci men Type: BLOOD SPECIMENOrdering Facility: [facility] Address: [address] [place] [address] Performed By: #### 1 9123-9, 2777, 44230-6 ####[facility]ATORYCLIA [id number] [address] [place] aPTT PPPon 07-14-2021 aPTT Coag (PPP) [Time] 62.9 s High 23.0-32.4 [facility] Comment on above: Order Comment: Speci men Type: BLOOD SPECIMENOrdering Facility: [facility] Address: [address] [place] [address] Performed By: #### 1 4979-9 ####[facility]ATORYCLIA [id number] [address] [place] aPTT Coag (PPP) [Time] 55.2 s High 23.0-32.4 [facility] Comment on above: Order Comment: Speci men Type: BLOOD SPECIMENOrdering Facility: [facility] Address: [address] [place] [address] Performed By: #### 1 4979-9 ####[facility]ATORYCLIA [id number] [place] [address] [place] Basic metabolic 2000 panelon 07-13-2021 Anion gap [Moles/Vol] 10 mmol/L Normal 9-18 [facility] Comment on above: Order Comment: Speci men Type: BLOOD SPECIMENOrdering Facility: [facility] Address: [address] [place] [address] Performed By: #### 1 9123-9, 2777-1, 66208-5 ####[facility]ORATORYCLIA [id number] [place] [address] [place] Calcium [Mass/Vol] 8.5 mg/dL Normal 8.5-10.2 [facility] Comment on above: Order Comment: Speci men Type: BLOOD SPECIMENOrdering Facility: [facility] Address: [address] [place] [address] Performed By: #### 1 9123-9, 2777-1, 78320-0 ####[facility]ATORYCLIA [id number] [place] [address] [place] Chloride [Moles/Vol] 98 mmol/L Normal 97-105 [facility] Comment on above: Order Comment: Speci men Type: BLOOD SPECIMENOrdering Facility: [facility] Address: [address] [place] [address] Performed By: #### 1 9123-9, 27771, 54687-9 ####[facility]ORATORYCLIA [id number] [place] [address] [place] CO2 [Moles/Vol] 32 mmol/L High 22-30 [facility] Comment on above: Order Comment: Speci men Type: BLOOD SPECIMENOrdering Facility: [facility] Address: [address] [place] [address] Performed By: #### 1 9123-9, 2777-1, 50760-8 ####[facility]ORATORYCLIA [id number] [place] [address] [place] Creatinine [Mass/Vol] 0.75 mg/dL Normal 0.73-1.22 [facility] Comment on above: Order Comment: Johncara feldman Type: BLOOD SPECIMENOrdering Facility: [facility] Address: [address] [phone] Performed By: #### 1 9123-9, 2777-1, 90616-7 ####[facility]ORATORYCLIA [id number] [place] [address] [place] ESTIMATED GLOMERULAR FILTRATION RATE 98 mL/min/1.73m??? Normal >=60 [facility] Comment on above: Order Comment: Shira francia Type: BLOOD SPECIMENOrdering Facility: [facility] Address: [address] Result Comment: Luzmaria mated Glomerular Filtration [...] GFR. Performed By: #### 1 9123-9, 2777-1, 10709-7 ####[facility]ORATORYCLIA [id number] [place] [address] [place] Glucose [Mass/Vol] 118 mg/dL High 74-99 [facility] Comment on above: Order Comment: Shira feldman Type: BLOOD SPECIMENOrdering Facility: [facility] Address: [address] Result Comment: The [place] Diabetes Association (ADA) provides guidance for cutoff [...] Standards of Medical Care in Diabetes 2016, [place] [employer]. Diabetes Care. 2016.39(Suppl 1). Performed By: #### 1 9123-9, 2777-1, 63368-1 ####[facility]ORATORYCLIA [id number] [address] [id number] [place] Potassium [Moles/Vol] 3.6 mmol/L Low 3.7-5.1 [facility] Comment on above: Order Comment: Speci men Type: BLOOD SPECIMENOrdering Facility: [facility] Address: [address] [place] [address] Performed By: #### 1 9123-9, 2777-1, 13400-0 ####[facility]ATORYCLIA [id number] [address] STATES OF [facility] Sodium [Moles/Vol] 140 mmol/L Normal 136-144 [facility] Comment on above: Order Comment: Speci men Type: BLOOD SPECIMENOrdering Facility: [facility] Address: [address] [place] [address] Performed By: #### 1 9123-9, 2777-1, 27658-4 ####[facility]ATORYCLIA [id number] [address] [place] Urea nitrogen [Mass/Vol] 15 mg/dL Normal 9-24 [facility] Comment on above: Order Comment: Speci men Type: BLOOD SPECIMENOrdering Facility: [facility] Address: [address] [place] [address] Performed By: #### 1 9123-9, 2777-1, 95618-0 ####[facility]ATORYCLIA [id number] [address] [id number] [place] CASE MANAGEMon 07-13-2021 CASE MANAGEM Normal [facility] CBC panel Auto (Bld)on 07-13 Erythrocyte distribution width (RBC) [Ratio] 16.2 % High 11.5-15.0 [facility] Comment on above: Order Comment: Speci men Type: BLOOD SPECIMENOrdering Facility: [facility] Address: [address] [place] [address] Performed By: #### 5 8410-2 ####[facility]ATORYCLIA [id number] [address] Hematocrit (Bld) [Volume fraction] 29.5 % Low 39.0-51.0 [facility] Comment on above: Order Comment: Speci men Type: BLOOD SPECIMENOrdering Facility: [facility] Address: [address] [place] [address] Performed By: #### 5 8410-2 ####[facility]ATORYCLIA [id number] [address] Hemoglobin (Bld) [Mass/Vol] 8.9 g/dL Low 13.0-17.0 [facility] Comment on above: Order Comment: Speci men Type: BLOOD SPECIMENOrdering Facility: [facility] Address: [address] [place] [address] Performed By: #### 5 8410-2 ####[facility]ORATORYCLIA [id number] [address] MCH (RBC) [Entitic mass] 27.8 pg Normal 26.0-34.0 [facility] Comment on above: Order Comment: Speci men Type: BLOOD SPECIMENOrdering Facility: [facility] Address: [address] [place] [address] Performed By: #### 5 8410-2 ####[facility]ATORYCLIA [id number] [address] [place] MCHC (RBC) [Mass/Vol] 30.2 g/dL Low 30.5-36.0 [facility] Comment on above: Order Comment: Speci men Type: BLOOD SPECIMENOrdering Facility: [facility] Address: [address] [place] [address] Performed By: #### 5 8410-2 ####[facility]ATORYCLIA [id number] [address] MCV (RBC) [Entitic vol] 92.2 fL Normal 80.0-100.0 [facility] Comment on above: Order Comment: Speci men Type: BLOOD SPECIMENOrdering Facility: [facility] Address: [facility] [address] Performed By: #### 5 8410-2 ####[facility]ORATORYCLIA [id number] [address] [place] Nucleated RBC (Bld) [#/Vol] 10*3/uL Normal <0.01 [facility] Comment on above: Order Comment: Speci men Type: BLOOD SPECIMENOrdering Facility: [facility] Address: [address] [place] [address] Performed By: #### 5 8410-2 ####[facility]ORATORYCLIA [id number] [address] [place] Platelet mean volume (Bld) [Entitic vol] 9.8 fL Normal 9.0-12.7 [facility] Comment on above: Order Comment: Speci men Type: BLOOD SPECIMENOrdering Facility: [facility] Address: [address] [place] [address] Performed By: #### 5 8410-2 ####[facility]ORATORYCLIA [id number] [address] [place] Platelets (Bld) [#/Vol] 356 10*3/uL Normal 150-400 [facility] Comment on above: Order Comment: Speci men Type: BLOOD SPECIMENOrdering Facility: [facility] Address: [address] Performed By: #### 5 8410-2 ####[facility]ATORYCLIA [id number] [address] [place] RBC (Bld) [#/Vol] 3.20 10*6/uL Low 4.20-6.00 [facility] Comment on above: Order Comment: Speci men Type: BLOOD SPECIMENOrdering Facility: [facility] Address: [address] [place] [address] Performed By: #### 5 8410-2 ####[facility]ORATORYCLIA [id number] [address] [place] WBC (Bld) [#/Vol] 9.20 10*3/uL Normal 3.70-11.00 [facility] Comment on above: Order Comment: Speci men Type: BLOOD SPECIMENOrdering Facility: [facility] Address: [address] [place] [address] Performed By: #### 5 8410-2 ####[facility]ORATORYCLIA [id number] [address] CONSULT PROGon 07-13-2021 CONSULT PROG Normal [facility] CONSULT PROG Normal [facility] CONSULT PROG Normal [facility] Magnesium SerPl-mCncon 07-13 Magnesium [Mass/Vol] 2.1 mg/dL Normal 1.7-2.3 [facility] Comment on above: Order Comment: Speci men Type: BLOOD SPECIMENOrdering Facility: [facility] Address: [address] [place] [address] Performed By: #### 1 9123-9, 2777-1, 28319-1 ####[facility]ATORYCLIA [id number] [address] Phosphate SerPl-mCncon 07-13 Phosphate [Mass/Vol] 3.7 mg/dL Normal 2.7-4.8 [facility] Comment on above: Order Comment: Speci men Type: BLOOD SPECIMENOrdering Facility: [facility] Address: [address] [place] [address] Performed By: #### 1 9123-9, 2777-1, 98303-4 ####[facility]ORATORYCLIA [id number] [address] OF [facility] THERAPY NTon 07-13-2021 THERAPY NT Normal [facility] THERAPY NT Normal [facility] Vancomycin random [Mass/Vol] on 07-13-2021 Vancomycin [Mass/Vol] 31.7 ug/mL High 10.0-20.0 [facility] Comment on above: Order Comment: Speci men Type: BLOOD SPECIMENOrdering Facility: [facility] Address: [address] [place] [address] Result Comment: Refe rence ranges and high/low indicator flags are provided as general guidelines only. The treating physician must determine appropriate target levels/dosing based on the specific clinical situation. Performed By: #### 4 091-5 ####[facility]ORATORYCLIA [id number] [address] aPTT PPPon 07-13-2021 aPTT Coag (PPP) [Time] 47.3 s High 23.0-32.4 [facility] Comment on above: Order Comment: Speci men Type: BLOOD SPECIMENOrdering Facility: [facility] Address: [address] [place] [address] Performed By: #### 1 4979-9 ####[facility]ORATORYCLIA [id number] [address] aPTT Coag (PPP) [Time] 51.2 s High 23.0-32.4 [facility] Comment on above: Order Comment: Speci men Type: BLOOD SPECIMENOrdering Facility: [facility] Address: [address] [place] [address] Performed By: #### 1 4979-9 ####[facility]ORATORYCLIA [id number] [address] aPTT Coag (PPP) [Time] 47.5 s High 23.0-32.4 [facility] Comment on above: Order Comment: Speci men Type: BLOOD SPECIMENOrdering Facility: [facility] Address: [address] [place] [address] Performed By: #### 1 4979-9 ####[facility]ORATORYCLIA [id number] [address] OF [facility] Basic metabolic 2000 panelon 07-12-2021 Anion gap [Moles/Vol] 7 mmol/L Low 9-18 [facility] Comment on above: Order Comment: Speci men Type: BLOOD SPECIMENOrdering Facility: [facility] Address: [address] [place] [address] Performed By: #### 1 9123-9, 27711-04, 13944-7 ####[facility]ORATORYCLIA [id number] [place] [address] [place] Calcium [Mass/Vol] 8.3 mg/dL Low 8.5-10.2 [facility] Comment on above: Order Comment: Speci men Type: BLOOD SPECIMENOrdering Facility: [facility] Address: [address] [place] [address] Performed By: #### 1 9123-9, 27711-04, 91487-2 ####[facility]ORATORYCLIA [id number] [place] [address] [place] Chloride [Moles/Vol] 101 mmol/L Normal 97-105 [facility] Comment on above: Order Comment: Speci men Type: BLOOD SPECIMENOrdering Facility: [facility] Address: [address] [place] [address] Performed By: #### 1 9123-9, 2776-05, ####[facility]ORATORYCLIA [id number] [place] [address] [place] CO2 [Moles/Vol] 32 mmol/L High 22-30 [facility] Comment on above: Order Comment: Speci men Type: BLOOD SPECIMENOrdering Facility: [facility] Address: [address] [place] [address] Performed By: #### 1 9123-9, 27711-04, 83596-4 ####[facility]ORATORYCLIA [id number] [place] [address] [place] Creatinine [Mass/Vol] 0.70 mg/dL Low 0.73-1.22 [facility] Comment on above: Order Comment: Speci men Type: BLOOD SPECIMENOrdering Facility: [facility] Address: [address] [place] [address] Performed By: #### 1 9123-9, 2777-1, 94564-2 ####[facility]ITALCL[facility] [id number] [address] OF [facility] ESTIMATED GLOMERULAR FILTRATION RATE 100 mL/min/1.73m??? Normal >=60 [facility] Comment on above: Order Comment: Shira feldman Type: BLOOD SPECIMENOrdering Facility: [facility] Address: [address] [place] [address] Result Comment: Luzmaria mated Glomerular Filtration Rate [...] GFR. Performed By: #### 1 9123-9, 2777-, 82044-7 ####[facility] HOSPITALIA [id number] [address] [place] Glucose [Mass/Vol] 104 mg/dL High 74-99 [facility] Comment on above: Order Comment: Shira feldman Type: BLOOD SPECIMENOrdering Facility: [facility] Address: [address] [place] [address] Result Comment: The [place] [employer] (ADA) provides guidance for cutoff [...] Standards of Medical Care in Diabetes 2016, [place] [employer]. Diabetes Care. 2016.39(Suppl 1). Performed By: #### 1 9123-9, 2777-, 12287-8 ####[facility]ORATORYCLIA [id number] [address] STATES OF [facility] Potassium [Moles/Vol] 3.7 mmol/L Normal 3.7-5.1 [facility] Comment on above: Order Comment: Speci men Type: BLOOD SPECIMENOrdering Facility: [facility] Address: [address] [place] [address] Performed By: #### 1 9123-9, 2777-1, 14205-3 ####[facility]ORATORYCLIA [id number] [address] [place] [facility] Sodium [Moles/Vol] 140 mmol/L Normal 136-144 [facility] Comment on above: Order Comment: Speci men Type: BLOOD SPECIMENOrdering Facility: [facility] Address: [address] [place] [address] Performed By: #### 1 9123-9, 2777-1, 59668-9 ####[facility]ORATORYCLIA [id number] [address] Urea nitrogen [Mass/Vol] 12 mg/dL Normal 9-24 [facility] Comment on above: Order Comment: Speci men Type: BLOOD SPECIMENOrdering Facility: [facility] Address: [address] [place] [address] Performed By: #### 1 9123-9, 2777-1, 12531-4 ####[facility] LABORATORYCLIA [id number] [address] CBC panel Auto (Bld)on 07-12 Erythrocyte distribution width (RBC) [Ratio] 16.1 % High 11.5-15.0 [facility] Comment on above: Order Comment: Speci men Type: BLOOD SPECIMENOrdering Facility: [facility] Address: [address] [place] [address] Performed By: #### 5 8410-2 ####[facility]ORATORYCLIA [id number] [address] Hematocrit (Bld) [Volume fraction] 28.2 % Low 39.0-51.0 [facility] Comment on above: Order Comment: Speci men Type: BLOOD SPECIMENOrdering Facility: [facility] Address: [address] [place] [address] Performed By: #### 5 8410-2 ####[facility]ORATORYCLIA [id number] [address] OF [facility] Hemoglobin (Bld) [Mass/Vol] 8.5 g/dL Low 13.0-17.0 [facility] Comment on above: Order Comment: Speci men Type: BLOOD SPECIMENOrdering Facility: [facility] Address: [address] [place] [address] Performed By: #### 5 8410-2 ####[facility]ORATORYCLIA [id number] [address] STATES OF [facility] MCH (RBC) [Entitic mass] 26.8 pg Normal 26.0-34.0 [facility] Comment on above: Order Comment: Speci men Type: BLOOD SPECIMENOrdering Facility: [facility] Address: [address] [place] [address] Performed By: #### 5 8410-2 ####[facility]ATORYCLIA [id number] [address] MCHC (RBC) [Mass/Vol] 30.1 g/dL Low 30.5-36.0 [facility] Comment on above: Order Comment: Speci men Type: BLOOD SPECIMENOrdering Facility: [facility] Address: [address] [place] [address] Performed By: #### 5 8410-2 ####[facility]ORATORYCLIA [id number] [address] MCV (RBC) [Entitic vol] 89.0 fL Normal 80.0-100.0 [facility] Comment on above: Order Comment: Speci men Type: BLOOD SPECIMENOrdering Facility: [facility] Address: [address] [place] [address] Performed By: #### 5 8410-2 ####[facility]ORATORYCLIA [id number] [address] [place] Nucleated RBC (Bld) [#/Vol] 10*3/uL Normal <0.01 [facility] Comment on above: Order Comment: Speci men Type: BLOOD SPECIMENOrdering Facility: [facility] Address: [address] [place] [address] Performed By: #### 5 8410-2 ####[facility]ORATORYCLIA [id number] [address] [place] Platelet mean volume (Bld) [Entitic vol] 9.6 fL Normal 9.0-12.7 [facility] Comment on above: Order Comment: Speci men Type: BLOOD SPECIMENOrdering Facility: [facility] Address: [address] [place] [address] Performed By: #### 5 8410-2 ####[facility]ORATORYCLIA [id number] [address] Platelets (Bld) [#/Vol] 340 10*3/uL Normal 150-400 [facility] Comment on above: Order Comment: Speci men Type: BLOOD SPECIMENOrdering Facility: [facility] Address: [address] [place] [address] Performed By: #### 5 8410-2 ####[facility]ORATORYCLIA [id number] [address] [place] RBC (Bld) [#/Vol] 3.17 10*6/uL Low 4.20-6.00 [facility] Comment on above: Order Comment: Speci men Type: BLOOD SPECIMENOrdering Facility: [facility] Address: [address] [place] [address] Performed By: #### 5 8410-2 ####[facility]ORATORYCLIA [id number] [address] [place] WBC (Bld) [#/Vol] 8.66 10*3/uL Normal 3.70-11.00 [facility] Comment on above: Order Comment: Speci men Type: BLOOD SPECIMENOrdering Facility: [facility] Address: [address] [place] [address] Performed By: #### 5 8410-2 ####[facility]ORATORYCLIA [id number] [address] [place] CONSULTon 07-12-2021 CONSULT Normal [facility] CONSULT PROGon 07-12-2021 CONSULT PROG Normal [facility] Magnesium SerPl-mCncon 07-12 Magnesium [Mass/Vol] 2.1 mg/dL Normal 1.7-2.3 [facility] Comment on above: Order Comment: Speci men Type: BLOOD SPECIMENOrdering Facility: [facility] Address: [address] [place] [address] Performed By: #### 1 9123-9, 2777-1, 17848-7 ####[facility]ORATORYCLIA [id number] [address] NURSING PROGon 07-12-2021 NURSING PROG Normal [facility] Phosphate SerPl-mCncon 07-12 Phosphate [Mass/Vol] 3.1 mg/dL Normal 2.7-4.8 [facility] Comment on above: Order Comment: Speci men Type: BLOOD SPECIMENOrdering Facility: [facility] Address: [address] [place] [address] Performed By: #### 1 9123-9, 2777-1, 30617-6 ####[facility]ATORYCLIA [id number] [address] THERAPY NTon 07-12-2021 THERAPY NT Normal [facility] aPTT PPPon 07-12-2021 aPTT Coag (PPP) [Time] 49.5 s High 23.0-32.4 [facility] Comment on above: Order Comment: Speci men Type: BLOOD SPECIMENOrdering Facility: [facility] Address: [address] [place] [address] Performed By: #### 1 4979-9 ####[facility]ORATORYCLIA [id number] [place] [address] [place] aPTT Coag (PPP) [Time] 68.0 s High 23.0-32.4 [facility] Comment on above: Order Comment: Speci men Type: BLOOD SPECIMENOrdering Facility: [facility] Address: [address] [place] [address] Performed By: #### 1 4979-9 ####[facility]ATORYCLIA [id number] [address] [place] aPTT Coag (PPP) [Time] 80.0 s High 23.0-32.4 [facility] Comment on above: Order Comment: Speci men Type: BLOOD SPECIMENOrdering Facility: [facility] Address: [address] [place] [address] Performed By: #### 1 4979-9 ####[facility]ORATORYCLIA [id number] [address] [place] CASE MGT INIT ASSESon 2021 CASE MGT INIT ASSES Normal [facility] CBC panel Auto (Bld)on 07-11 Erythrocyte distribution width (RBC) [Ratio] 16.3 % High 11.5-15.0 [facility] Comment on above: Order Comment: Speci men Type: BLOOD SPECIMENOrdering Facility: [facility] Address: [address] [place] [address] Performed By: #### 5 8410-2 ####[facility]ORATORYCLIA [id number] [address] OF [facility] Hematocrit (Bld) [Volume fraction] 28.3 % Low 39.0-51.0 [facility] Comment on above: Order Comment: Speci men Type: BLOOD SPECIMENOrdering Facility: [facility] Address: [address] [place] [address] Performed By: #### 5 8410-2 ####[facility]ORATORYCLIA [id number] [address] Hemoglobin (Bld) [Mass/Vol] 8.8 g/dL Low 13.0-17.0 [facility] Comment on above: Order Comment: Speci men Type: BLOOD SPECIMENOrdering Facility: [facility] Address: [address] [place] [address] Performed By: #### 5 8410-2 ####[facility]ORATORYCLIA [id number] [address] MCH (RBC) [Entitic mass] 27.4 pg Normal 26.0-34.0 [facility] Comment on above: Order Comment: Speci men Type: BLOOD SPECIMENOrdering Facility: [facility] Address: [address] [place] [address] Performed By: #### 5 8410-2 ####[facility]ORATORYCLIA [id number] [address] MCHC (RBC) [Mass/Vol] 31.1 g/dL Normal 30.5-36.0 [facility] Comment on above: Order Comment: Speci men Type: BLOOD SPECIMENOrdering Facility: [facility] Address: [address] [place] [address] Performed By: #### 5 8410-2 ####[facility]ATORYCLIA [id number] [address] MCV (RBC) [Entitic vol] 88.2 fL Normal 80.0-100.0 [facility] Comment on above: Order Comment: Speci men Type: BLOOD SPECIMENOrdering Facility: [facility] Address: [address] [place] [address] Performed By: #### 5 8410-2 ####[facility]ORATORYCLIA [id number] [address] Nucleated RBC (Bld) [#/Vol] 10*3/uL Normal <0.01 [facility] Comment on above: Order Comment: Speci men Type: BLOOD SPECIMENOrdering Facility: [facility] Address: [address] Performed By: #### 5 8410-2 ####[facility]ORATORYCLIA [id number] [address] Platelet mean volume (Bld) [Entitic vol] 9.7 fL Normal 9.0-12.7 [facility] Comment on above: Order Comment: Speci men Type: BLOOD SPECIMENOrdering Facility: [facility] Address: [address] [place] [address] Performed By: #### 5 8410-2 ####[facility]ORATORYCLIA [id number] [address] [place] Platelets (Bld) [#/Vol] 315 10*3/uL Normal 150-400 [facility] Comment on above: Order Comment: Speci men Type: BLOOD SPECIMENOrdering Facility: [facility] Address: [address] [place] [address] Performed By: #### 5 8410-2 ####[facility]ORATORYCLIA [id number] [address] [place] RBC (Bld) [#/Vol] 3.21 10*6/uL Low 4.20-6.00 [facility] Comment on above: Order Comment: Speci men Type: BLOOD SPECIMENOrdering Facility: [facility] Address: [address] [place] [address] Performed By: #### 5 8410-2 ####[facility]ORATORYCLIA [id number] [address] [place] WBC (Bld) [#/Vol] 9.18 10*3/uL Normal 3.70-11.00 [facility] Comment on above: Order Comment: Speci men Type: BLOOD SPECIMENOrdering Facility: [facility] Address: [address] [place] [address] Performed By: #### 5 8410-2 ####[facility]ORATORYCLIA [id number] [address] CONSULT PROGon 03-07-2022 CONSULT PROG Normal [facility] CT BRAIN WO IVCONon 07-12-[address] BRAIN WO IVCON Normal [facility] Magnesium SerPl-mCncon 07-11 Magnesium [Mass/Vol] 2.1 mg/dL Normal 1.7-2.3 [facility] Comment on above: Order Comment: Speci men Type: BLOOD SPECIMENOrdering Facility: [facility] Address: [facility] [place] [address] Performed By: #### 1 9123-9, 2777-1 ####[facility]ATORYCLIA [id number] [address] NURSING PROGon 07-11-2021 NURSING PROG Normal [facility] NURSING PROG Normal [facility] Phosphate SerPl-mCncon 07-11 Phosphate [Mass/Vol] 3.4 mg/dL Normal 2.7-4.8 [facility] Comment on above: Order Comment: Speci men Type: BLOOD SPECIMENOrdering Facility: [facility] Address: [address] [place] [address] Performed By: #### 1 9123-9, 2777-1 ####[facility]ATORYCLIA [id number] [address] THERAPY NTon 07-11-2021 THERAPY NT Normal [facility] Vancomycin random [Mass/Vol] on 07-11-2021 Vancomycin [Mass/Vol] 28.6 ug/mL High 10.0-20.0 [facility] Comment on above: Order Comment: Speci men Type: BLOOD SPECIMENOrdering Facility: [facility] Address: [address] [place] [address] Result Comment: Refe rence ranges and high/low indicator flags are provided as general guidelines only. The treating physician must determine appropriate target levels/dosing based on the specific clinical situation. Performed By: #### 4 091-5 ####[facility]ATORYCLIA [id number] [address] aPTT PPPon 07-11-2021 aPTT Coag (PPP) [Time] 62.0 s High 23.0-32.4 [facility] Comment on above: Order Comment: Speci men Type: BLOOD SPECIMENOrdering Facility: [facility] Address: [address] [place] [address] Performed By: #### 1 4979-9 ####[facility]ATORYCLIA [id number] [address] aPTT Coag (PPP) [Time] 52.7 s High 23.0-32.4 [facility] Comment on above: Order Comment: Speci men Type: BLOOD SPECIMENOrdering Facility: [facility] Address: [address] [place] [address] Performed By: #### 1 4979-9 ####[facility]ATORYCLIA [id number] [address] aPTT Coag (PPP) [Time] 29.9 s Normal 23.0-32.4 [facility] Comment on above: Order Comment: Speci men Type: BLOOD SPECIMENOrdering Facility: [facility] Address: [address] [place] [address] Performed By: #### 1 4979-9 ####[facility]ATORYCLIA [id number] [address] OF [facility] Basic metabolic 2000 panelon 07-10-2021 Anion gap [Moles/Vol] 14 mmol/L Normal 9-18 [facility] Comment on above: Order Comment: Speci men Type: BLOOD SPECIMENOrdering Facility: [facility] Address: [address] [place] [address] Performed By: #### 1 9123-9, 2777-1, 77391-0 ####[facility]ATORYCLIA [id number] [address] Calcium [Mass/Vol] 8.5 mg/dL Normal 8.5-10.2 [facility] Comment on above: Order Comment: Speci men Type: BLOOD SPECIMENOrdering Facility: [facility] Address: [address] [place] [place] [address] Performed By: #### 1 9123-9, 2771, 43373-5 ####[facility]ATORYCLIA [id number] [place] [address] [place] Chloride [Moles/Vol] 100 mmol/L Normal 97-105 [facility] Comment on above: Order Comment: Speci men Type: BLOOD SPECIMENOrdering Facility: [facility] Address: [address] [place] [address] Performed By: #### 1 9123-9, 27711-04, 61604-9 ####[facility]ATORYCLIA [id number] [address] [place] CO2 [Moles/Vol] 27 mmol/L Normal 22-30 [facility] Comment on above: Order Comment: Speci men Type: BLOOD SPECIMENOrdering Facility: [facility] Address: [address] [place] [address] Performed By: #### 1 9123-9, 27711-04, 87037-7 ####[facility]ATORYCLIA [id number] [address] [place] Creatinine [Mass/Vol] 0.66 mg/dL Low 0.73-1.22 [facility] Comment on above: Order Comment: Speci men Type: BLOOD SPECIMENOrdering Facility: [facility] Address: [address] [place] [address] Performed By: #### 1 9123-9, 27711-04, 89555-2 ####[facility]ATORYCLIA [id number] [address] ESTIMATED GLOMERULAR FILTRATION RATE 102 mL/min/1.73m??? Normal >=60 [facility] Comment on above: Order Comment: Speci men Type: BLOOD SPECIMENOrdering Facility: [facility] Address: [address] [place] [address] Result Comment: Luzmaria mated Glomerular Filtration Rate [...] GFR. Performed By: #### 1 9123-9, 2777-1, 20140-6 ####[facility]ORATORYCLIA [id number] [place] [address] [place] Glucose [Mass/Vol] 93 mg/dL Normal 74-99 [facility] Comment on above: Order Comment: Speci men Type: BLOOD SPECIMENOrdering Facility: [facility] Address: [address] [place] [address] Result Comment: The [place] [employer] (ADA) provides guidance for cutoff [...] Standards of Medical Care in Diabetes 2016, [place] [employer]. Diabetes Care. 2016.39(Suppl 1). Performed By: #### 1 9123-9, 2777-, 99168-5 ####[facility]ORATORYIA [id number] [place] [address] [place] Potassium [Moles/Vol] 3.5 mmol/L Low 3.7-5.1 [facility] Comment on above: Order Comment: Johni men Type: BLOOD SPECIMENOrdering Facility: [facility] Address: [address] [id number] Performed By: #### 1 9123-9, 2777-, 97042-4 ####[facility]ORATORYCLIA [id number] [address] Sodium [Moles/Vol] 141 mmol/L Normal 136-144 [facility] Comment on above: Order Comment: Speci men Type: BLOOD SPECIMENOrdering Facility: [facility] Address: [address] [place] [address] Performed By: #### 1 9123-9, 2777-1, 85587-4 ####[facility]ORATORYCLIA [id number] [address] STATES OF [facility] Urea nitrogen [Mass/Vol] 11 mg/dL Normal 9-24 [facility] Comment on above: Order Comment: Speci men Type: BLOOD SPECIMENOrdering Facility: [facility] Address: [address] [place] [address] Performed By: #### 1 9123-9, 2777-1, 80959-8 ####[facility]ORATORYCLIA [id number] [address] CBC panel Auto (Bld)on 07-10 Erythrocyte distribution width (RBC) [Ratio] 16.2 % High 11.5-15.0 [facility] Comment on above: Order Comment: Speci men Type: BLOOD SPECIMENOrdering Facility: [facility] Address: [address] [place] [address] Performed By: #### 5 8410-2 ####[facility]ORATORYCLIA [id number] [address] STATES OF [facility] Hematocrit (Bld) [Volume fraction] 30.6 % Low 39.0-51.0 [facility] Comment on above: Order Comment: Speci men Type: BLOOD SPECIMENOrdering Facility: [facility] Address: [address] [place] [address] Performed By: #### 5 8410-2 ####[facility]ORATORYCLIA [id number] [address] STATES OF [facility] Hemoglobin (Bld) [Mass/Vol] 9.6 g/dL Low 13.0-17.0 [facility] Comment on above: Order Comment: Speci men Type: BLOOD SPECIMENOrdering Facility: [facility] Address: [address] [place] [address] Performed By: #### 5 8410-2 ####[facility]ATORYCLIA [id number] [address] MCH (RBC) [Entitic mass] 28.3 pg Normal 26.0-34.0 [facility] Comment on above: Order Comment: Speci men Type: BLOOD SPECIMENOrdering Facility: [facility] Address: [address] [place] [address] Performed By: #### 5 8410-2 ####[facility]ORATORYCLIA [id number] [address] MCHC (RBC) [Mass/Vol] 31.4 g/dL Normal 30.5-36.0 [facility] Comment on above: Order Comment: Speci men Type: BLOOD SPECIMENOrdering Facility: [facility] Address: [address] [place] [address] Performed By: #### 5 8410-2 ####[facility]ORATORYCLIA [id number] [address] MCV (RBC) [Entitic vol] 90.3 fL Normal 80.0-100.0 [facility] Comment on above: Order Comment: Speci men Type: BLOOD SPECIMENOrdering Facility: [facility] Address: [address] [place] [address] Performed By: #### 5 8410-2 ####[facility]ORATORYCLIA [id number] [address] Nucleated RBC (Bld) [#/Vol] 10*3/uL Normal <0.01 [facility] Comment on above: Order Comment: Speci men Type: BLOOD SPECIMENOrdering Facility: [facility] Address: [address] [place] [address] Performed By: #### 5 8410-2 ####[facility]ORATORYCLIA [id number] [address] Platelet mean volume (Bld) [Entitic vol] 9.7 fL Normal 9.0-12.7 [facility] Comment on above: Order Comment: Speci men Type: BLOOD SPECIMENOrdering Facility: [facility] Address: [address] [place] [address] Performed By: #### 5 8410-2 ####[facility]ORATORYCLIA [id number] [place] [address] [place] Platelets (Bld) [#/Vol] 306 10*3/uL Normal 150-400 [facility] Comment on above: Order Comment: Speci men Type: BLOOD SPECIMENOrdering Facility: [facility] Address: [address] [place] [address] Performed By: #### 5 8410-2 ####[facility]ORATORYCLIA [id number] [address] [place] RBC (Bld) [#/Vol] 3.39 10*6/uL Low 4.20-6.00 [facility] Comment on above: Order Comment: Speci men Type: BLOOD SPECIMENOrdering Facility: [facility] Address: [address] [place] [address] Performed By: #### 5 8410-2 ####[facility]ORATORYCLIA [id number] [address] [place] WBC (Bld) [#/Vol] 9.81 10*3/uL Normal 3.70-11.00 [facility] Comment on above: Order Comment: Speci men Type: BLOOD SPECIMENOrdering Facility: [facility] Address: [address] [place] [address] Performed By: #### 5 8410-2 ####[facility]ORATORYCLIA [id number] [address] [place] CONSULTon 07-10-2021 CONSULT Normal [facility] CONSULT Normal [facility] Magnesium SerPl-mCncon 07-10 Magnesium [Mass/Vol] 1.9 mg/dL Normal 1.7-2.3 [facility] Comment on above: Order Comment: Speci men Type: BLOOD SPECIMENOrdering Facility: [facility] Address: [address] [place] [address] Performed By: #### 1 9123-9, 2777-1, 52898-1 ####[facility] LABORATORYCLIA [id number] [address] OF [facility] NURSING PROGon 07-10-2021 NURSING PROG Normal [facility] NURSING PROG Normal [facility] NUTRITIONon 07-10-2021 NUTRITION Normal [facility] Phosphate SerPl-mCncon 07-10 Phosphate [Mass/Vol] 3.6 mg/dL Normal 2.7-4.8 [facility] Comment on above: Order Comment: Speci men Type: BLOOD SPECIMENOrdering Facility: [facility] Address: [address] [place] [address] Performed By: #### 1 9123-9, 2777-1, 27388-8 ####[facility] LABORATORYCLIA [id number] [place] [address] [place] US DVT LOWER BILon US DVT LOWER RAINER Normal [facility] aPTT PPPon 07-10-2021 aPTT Coag (PPP) [Time] 28.8 s Normal 23.0-32.4 [facility] Comment on above: Order Comment: Speci men Type: BLOOD SPECIMENOrdering Facility: [facility] Address: [address] [place] [address] Performed By: #### 1 4979-9 ####[facility]ORATORYCLIA [id number] [address] [place] aPTT Coag (PPP) [Time] 28.4 s Normal 23.0-32.4 [facility] Comment on above: Order Comment: Speci men Type: BLOOD SPECIMENOrdering Facility: [facility] Address: [address] [place] [address] Performed By: #### 1 4979-9 ####[facility]ORATORYCLIA [id number] [place] [address] [place] ALLIED HEALTHon 07-09-2021 ALLIED HEALTH Normal [facility] Basic metabolic 2000 panelon 07-09-2021 Anion gap [Moles/Vol] 9 mmol/L Normal 9-18 [facility] Comment on above: Order Comment: Speci men Type: BLOOD SPECIMENOrdering Facility: [facility] Address: [address] [place] [address] Performed By: #### 1 9123-9, 2777, 48912-2 ####[facility]ORATORYCLIA [id number] [place] [address] [place] Calcium [Mass/Vol] 8.3 mg/dL Low 8.5-10.2 [facility] Comment on above: Order Comment: Speci men Type: BLOOD SPECIMENOrdering Facility: [facility] Address: [address] [place] [address] Performed By: #### 1 9123-9, 2777, 59304-3 ####[facility] LABORATORYCLIA [id number] [place] [address] [place] Chloride [Moles/Vol] 100 mmol/L Normal 97-105 [facility] Comment on above: Order Comment: Speci men Type: BLOOD SPECIMENOrdering Facility: [facility] Address: [address] [place] [address] Performed By: #### 1 9123-9, 27711-04, 04189-7 ####[facility]ATORYCLIA [id number] [place] [address] [place] CO2 [Moles/Vol] 29 mmol/L Normal 22-30 [facility] Comment on above: Order Comment: Speci men Type: BLOOD SPECIMENOrdering Facility: [facility] Address: [address] [place] [address] Performed By: #### 1 9123-9, 2777-, 41892-7 ####[facility]ATORYCLIA [id number] [address] STATES OF [facility] Creatinine [Mass/Vol] 0.61 mg/dL Low 0.73-1.22 [facility] Comment on above: Order Comment: Shira feldman Type: BLOOD SPECIMENOrdering Facility: [facility] Address: [address] [place] [address] Performed By: #### 1 9123-9, 2777-1, 72839-9 ####[facility]ITALCLIA [id number] [address] ESTIMATED GLOMERULAR FILTRATION RATE 104 mL/min/1.73m??? Normal >=60 [facility] Comment on above: Order Comment: Shira feldman Type: BLOOD SPECIMENOrdering Facility: [facility] Address: [address] [place] [address] Result Comment: Luzmaria mated Glomerular Filtration Rate [...] GFR. Performed By: #### 1 9123-9, 2777-, 67977-5 ####[facility] HOSPITALIA [id number] [address] [place] OF [facility] Glucose [Mass/Vol] 106 mg/dL High 74-99 [facility] Comment on above: Order Comment: Shira feldman Type: BLOOD SPECIMENOrdering Facility: [facility] Address: [address] [address] Result Comment: The [place] Diabetes [employer] (ADA) provides guidance for cutoff [...] Standards of Medical Care in Diabetes 2016, [place] [employer]. Diabetes Care. 2016.39(Suppl 1). Performed By: #### 1 9123-9, 2777-, 19582-6 ####[facility]ATORYCLIA [id number] [place] [address] [place] Potassium [Moles/Vol] 3.6 mmol/L Low 3.7-5.1 [facility] Comment on above: Order Comment: Speci men Type: BLOOD SPECIMENOrdering Facility: [facility] Address: [address] [place] [address] Performed By: #### 1 9123-9, 27711-04, 37591-2 ####[facility]ITALCL[facility] [id number] [address] STATES OF [facility] Sodium [Moles/Vol] 138 mmol/L Normal 136-144 [facility] Comment on above: Order Comment: Speci men Type: BLOOD SPECIMENOrdering Facility: [facility] Address: [address] [place] [address] Performed By: #### 1 9123-9, 27711-04, 62559-1 ####[facility]ATORYCLIA [id number] [address] STATES [facility] Urea nitrogen [Mass/Vol] 12 mg/dL Normal 9-24 [facility] Comment on above: Order Comment: Speci men Type: BLOOD SPECIMENOrdering Facility: [facility] Address: [address] [address] Performed By: #### 1 9123-9, 27711-04, 10427-4 ####[facility]ATORYCLIA [id number] [address] [place] CBC panel Auto (Bld)on 07-09 Erythrocyte distribution width (RBC) [Ratio] 16.2 % High 11.5-15.0 [facility] Comment on above: Order Comment: Speci men Type: BLOOD SPECIMENOrdering Facility: [facility] Address: [address] [place] [address] Performed By: #### 5 8410-2 ####[facility]ATORYCLIA [id number] [address] Hematocrit (Bld) [Volume fraction] 29.0 % Low 39.0-51.0 [facility] Comment on above: Order Comment: Speci men Type: BLOOD SPECIMENOrdering Facility: [facility] Address: [address] [place] [address] Performed By: #### 5 8410-2 ####[facility]ATORYCLIA [id number] [address] Hemoglobin (Bld) [Mass/Vol] 8.8 g/dL Low 13.0-17.0 [facility] Comment on above: Order Comment: Speci men Type: BLOOD SPECIMENOrdering Facility: [facility] Address: [address] [place] [address] Performed By: #### 5 8410-2 ####[facility]ATORYCLIA [id number] [address] MCH (RBC) [Entitic mass] 27.0 pg Normal 26.0-34.0 [facility] Comment on above: Order Comment: Speci men Type: BLOOD SPECIMENOrdering Facility: [facility] Address: [address] [place] [address] Performed By: #### 5 8410-2 ####[facility]ATORYCLIA [id number] [address] [place] MCHC (RBC) [Mass/Vol] 30.3 g/dL Low 30.5-36.0 [facility] Comment on above: Order Comment: Speci men Type: BLOOD SPECIMENOrdering Facility: [facility] Address: [address] [place] [address] Performed By: #### 5 8410-2 ####[facility]ORYCLIA [id number] [address] MCV (RBC) [Entitic vol] 89.0 fL Normal 80.0-100.0 [facility] Comment on above: Order Comment: Speci men Type: BLOOD SPECIMENOrdering Facility: [facility] Address: [address] [place] [address] Performed By: #### 5 8410-2 ####[facility]ATORYCLIA [id number] [address] [place] Nucleated RBC (Bld) [#/Vol] 10*3/uL Normal <0.01 [facility] Comment on above: Order Comment: Speci men Type: BLOOD SPECIMENOrdering Facility: [facility] Address: [address] [place] [address] Performed By: #### 5 8410-2 ####[facility]ATORYCLIA [id number] [address] [place] Platelet mean volume (Bld) [Entitic vol] 9.8 fL Normal 9.0-12.7 [facility] Comment on above: Order Comment: Speci men Type: BLOOD SPECIMENOrdering Facility: [facility] Address: [address] [place] [address] Performed By: #### 5 8410-2 ####[facility]ORYCLIA [id number] [address] Platelets (Bld) [#/Vol] 281 10*3/uL Normal 150-400 [facility] Comment on above: Order Comment: Speci men Type: BLOOD SPECIMENOrdering Facility: [facility] Address: [address] [address] Performed By: #### 5 8410-2 ####[facility]ORYCLIA [id number] [address] [place] RBC (Bld) [#/Vol] 3.26 10*6/uL Low 4.20-6.00 [facility] Comment on above: Order Comment: Speci men Type: BLOOD SPECIMENOrdering Facility: [facility] Address: [address] [place] [address] Performed By: #### 5 8410-2 ####[facility]ATORYCLIA [id number] [place] [address] [place] WBC (Bld) [#/Vol] 9.12 10*3/uL Normal 3.70-11.00 [facility] Comment on above: Order Comment: Speci men Type: BLOOD SPECIMENOrdering Facility: [facility] Address: [address] [place] [place] [address] Performed By: #### 5 8410-2 ####[facility]ATORYCLIA [id number] [address] OF [facility] CONSULT PROGon 07-09-2021 CONSULT PROG Normal [facility] CONSULT PROG Normal [facility] HISTORY PHYSICALon HISTORY PHYSICAL Normal [facility] Magnesium SerPl-mCncon 07-09 Magnesium [Mass/Vol] 1.9 mg/dL Normal 1.7-2.3 [facility] Comment on above: Order Comment: Speci men Type: BLOOD SPECIMENOrdering Facility: [facility] Address: [address] [place] [place] [address] Performed By: #### 1 9123-9, 2777-1, 09774-0 ####[facility]ATORYCLIA [id number] [address] [place] Phosphate SerPl-mCncon 07-09 Phosphate [Mass/Vol] 3.6 mg/dL Normal 2.7-4.8 [facility] Comment on above: Order Comment: Speci men Type: BLOOD SPECIMENOrdering Facility: [facility] Address: [address] [place] [address] Performed By: #### 1 9123-9, 2777-1, 63120-9 ####[facility]ATORYCLIA [id number] [address] [place] THERAPY NTon 07-09-2021 THERAPY NT Normal [facility] XR ABDOMEN 1V SUPINEon 07-09 XR ABDOMEN 1V SUPINE Normal [facility] ALLIED HEALTHon 07-08-2021 ALLIED HEALTH Normal [facility] ALLIED HEALTH Normal [facility] ALLIED HEALTH Normal [facility] ANES PRE-OPon 07-08-2021 ANES PRE-OP Normal [facility] BRIEF OP NOTon 07-08-2021 BRIEF OP NOT Normal [facility] Bacteria Bld Culton 07-09-19 22 Bacteria identified Cx Nom (Bld) CULTURE, BLOOD: No growth 5 days Normal [facility] Comment on above: Performed By: #### 6 00-7 ####[facility]ATORYCLIA [id number] [address] Bacteria identified Cx Nom (Bld) CULTURE, BLOOD: No growth 5 days [facility] Comment on above: Performed By: #### 6 00-7 ####[facility]ATORYCLIA [id number] [address] OF [facility] Bacteria CSF Culton 07-09-19 22 Bacteria identified Cx Nom (CSF) CULTURE, CSF: No growth 14 days GRAM STAIN: No organisms seen No Polymorphonuclear Leukocytes Few Red Blood Cells Gram stain performed on cytospun specimen. Normal [facility] Comment on above: Performed By: #### 6 06-4 ####[facility]ORATORYCLIA [id number] [place] [address] [place] Bacteria Ur Culton 2 Bacteria identified Cx Nom (U) ORGANISM ID: 1 10,000 -<50,000 CFU/ml Proteus species Insignificant colony count. No further workup. ORGANISM ID: 2 <10,000 CFU/ml Normal urogenital chris Normal [facility] Comment on above: Performed By: #### 6 30-4 ####[facility]ATORYCLIA [id number] [address] [place] Bacteria Wnd Culton 07-09-19 22 Bacteria identified Cx Nom (Wound) ORGANISM ID: 1 Coagulase negative staphylococcus Growth in Enrichment Broth Only No susceptibility testing done. Call lab within 72 hours to initiate work-up if clinically indicated. GRAM STAIN: Account credited. Not performed on this specimen type. Normal [facility] Comment on above: Performed By: #### 6 462-6 ####[facility]ATORYCLIA [id number] [address] Bacteria identified Cx Nom (Wound) ORGANISM ID: 1 Rare Coagulase negative staphylococcus No susceptibility testing done. Call lab within 72 hours to initiate work-up if clinically indicated. GRAM STAIN: Account credited. Not performed on this specimen type. [facility] Comment on above: Performed By: #### 6 462-6 ####[facility]ATORYCLIA [id number] [address] Bacteria identified Cx Nom (Wound) CULTURE, INTRAOPERATIVE HARDWARE: No growth 14 days GRAM STAIN: Account credited. Not performed on this specimen type. [facility] Comment on above: Performed By: #### 6 462-6 ####[facility]ATORYCLIA [id number] [address] [place] Basic metabolic 2000 panelon 07-08-2021 Anion gap [Moles/Vol] 9 mmol/L Normal 9-18 [facility] Comment on above: Order Comment: Speci men Type: BLOOD SPECIMENOrdering Facility: [facility] Address: [address] [place] [address] Performed By: #### 2 4321-2 ####[facility]ATORYCLIA [id number] [address] STATES OF [facility] Calcium [Mass/Vol] 8.5 mg/dL Normal 8.5-10.2 [facility] Comment on above: Order Comment: Speci men Type: BLOOD SPECIMENOrdering Facility: [facility] Address: [address] [address] Performed By: #### 2 4321-2 ####[facility]ATORYCLIA [id number] [address] Chloride [Moles/Vol] 98 mmol/L Normal 97-105 [facility] Comment on above: Order Comment: Speci men Type: BLOOD SPECIMENOrdering Facility: [facility] Address: [address] [place] [address] Performed By: #### 2 4321-2 ####[facility]ORATORYCLIA [id number] [place] [address] [place] CO2 [Moles/Vol] 31 mmol/L High 22-30 [facility] Comment on above: Order Comment: Speci men Type: BLOOD SPECIMENOrdering Facility: [facility] Address: [address] [place] [address] Performed By: #### 2 4321-2 ####[facility]ATORYCLIA [id number] [address] STATES OF [facility] Creatinine [Mass/Vol] 0.64 mg/dL Low 0.73-1.22 [facility] Comment on above: Order Comment: Speci men Type: BLOOD SPECIMENOrdering Facility: [facility] Address: [address] [place] [address] Performed By: #### 2 4321-2 ####[facility]ATORYCLIA [id number] [address] ESTIMATED GLOMERULAR FILTRATION RATE 102 mL/min/1.73m??? Normal >=60 [facility] Comment on above: Order Comment: Speci men Type: BLOOD SPECIMENOrdering Facility: [facility] Address: [address] [place] [address] Result Comment: Luzmaria mated Glomerular Filtration Rate [...] actual GFR. Performed By: #### 2 4321-2 ####[facility]ATORYCLIA [id number] [address] [place] Glucose [Mass/Vol] 114 mg/dL High 74-99 [facility] Comment on above: Order Comment: Speci men Type: BLOOD SPECIMENOrdering Facility: [facility] Address: [address] [address] Result Comment: The [place] Diabetes [employer] (ADA) provides guidance for cutoff [...] Standards of Medical Care in Diabetes 2016, [place] [employer]. Diabetes Care. 2016.39(Suppl 1). Performed By: #### 2 4321-2 ####[facility]ATORYCLIA [id number] [place] [address] [place] Potassium [Moles/Vol] 3.4 mmol/L Low 3.7-5.1 [facility] Comment on above: Order Comment: Speci men Type: BLOOD SPECIMENOrdering Facility: [facility] Address: [address] [address] Performed By: #### 2 4321-2 ####[facility]ATORYCLIA [id number] [place] [address] [place] Sodium [Moles/Vol] 138 mmol/L Normal 136-144 [facility] Comment on above: Order Comment: Speci men Type: BLOOD SPECIMENOrdering Facility: [facility] Address: [address] [address] Performed By: #### 2 1-2 ####[facility]ATORYCLIA [id number] [place] [address] [place] Urea nitrogen [Mass/Vol] 14 mg/dL Normal 9-24 [facility] Comment on above: Order Comment: Speci men Type: BLOOD SPECIMENOrdering Facility: [facility] Address: [address] [address] Performed By: #### 2 4321-2 ####[facility]ORATORYCLIA [id number] [place] [address] [place] CBC W Auto Differential pane l (Bld)on 07-08-2021 Basophils (Bld) [#/Vol] 0.05 10*3/uL Normal <0.11 [facility] Comment on above: Order Comment: Speci men Type: BLOOD SPECIMENOrdering Facility: [facility] Address: [address] [place] [address] Performed By: #### 5 7021-8 ####[facility]ORYCLIA [id number] [address] [place] Basophils/100 WBC (Bld) 0.4 % Normal [facility] Comment on above: Order Comment: Speci men Type: BLOOD SPECIMENOrdering Facility: [facility] Address: [address] [place] [address] Performed By: #### 5 7021-8 ####[facility]ATORYCLIA [id number] [address] STATES OF [facility] Differential cell count method Nom (Bld) Auto Normal [facility] Comment on above: Order Comment: Speci men Type: BLOOD SPECIMENOrdering Facility: [facility] Address: [address] [place] [address] Performed By: #### 5 7021-8 ####[facility]ATORYCLIA [id number] [place] [address] [place] Eosinophils (Bld) [#/Vol] 0.68 10*3/uL High <0.46 [facility] Comment on above: Order Comment: Speci men Type: BLOOD SPECIMENOrdering Facility: [facility] Address: [address] [place] [address] Performed By: #### 5 7021-8 ####[facility]ORATORYCLIA [id number] [address] [place] Eosinophils/100 WBC (Bld) 5.4 % Normal [facility] Comment on above: Order Comment: Speci men Type: BLOOD SPECIMENOrdering Facility: [facility] Address: [address] [place] [address] Performed By: #### 5 7021-8 ####[facility]ATORYCLIA [id number] [address] Erythrocyte distribution width (RBC) [Ratio] 16.3 % High 11.5-15.0 [facility] Comment on above: Order Comment: Speci men Type: BLOOD SPECIMENOrdering Facility: [facility] Address: [address] [place] [address] Performed By: #### 5 7021-8 ####[facility]ATORYCLIA [id number] [address] Hematocrit (Bld) [Volume fraction] 35.7 % Low 39.0-51.0 [facility] Comment on above: Order Comment: Speci men Type: BLOOD SPECIMENOrdering Facility: [facility] Address: [address] [place] [address] Performed By: #### 5 7021-8 ####[facility]ATORYCLIA [id number] [address] Hemoglobin (Bld) [Mass/Vol] 10.8 g/dL Low 13.0-17.0 [facility] Comment on above: Order Comment: Speci men Type: BLOOD SPECIMENOrdering Facility: [facility] Address: [address] [place] [address] Performed By: #### 5 7021-8 ####[facility]ATORYCLIA [id number] [address] IMMATURE GRAN % 0.4 % Normal [facility] Comment on above: Order Comment: Speci men Type: BLOOD SPECIMENOrdering Facility: [facility] Address: [address] [place] [address] Performed By: #### 5 7021-8 ####[facility]ATORYCLIA [id number] [address] IMMATURE GRAN ABS 0.05 k/uL Normal <0.10 [facility] Comment on above: Order Comment: Speci men Type: BLOOD SPECIMENOrdering Facility: [facility] Address: [address] [place] [address] Performed By: #### 5 7021-8 ####[facility]ATORYCLIA [id number] [address] OF [facility] Lymphocytes (Bld) [#/Vol] 1.85 10*3/uL Normal 1.00-4.00 [facility] Comment on above: Order Comment: Speci men Type: BLOOD SPECIMENOrdering Facility: [facility] Address: [address] [place] [address] Performed By: #### 5 7021-8 ####[facility]ATORYCLIA [id number] [address] Lymphocytes/100 WBC (Bld) 14.7 % Normal [facility] Comment on above: Order Comment: Speci men Type: BLOOD SPECIMENOrdering Facility: [facility] Address: [address] [place] [address] Performed By: #### 5 7021-8 ####[facility]ATORYCLIA [id number] [address] STATES [facility] MCH (RBC) [Entitic mass] 27.1 pg Normal 26.0-34.0 [facility] Comment on above: Order Comment: Speci men Type: BLOOD SPECIMENOrdering Facility: [facility] Address: [address] [place] [address] Performed By: #### 5 7021-8 ####[facility]ORYCLIA [id number] [address] [place] MCHC (RBC) [Mass/Vol] 30.3 g/dL Low 30.5-36.0 [facility] Comment on above: Order Comment: Speci men Type: BLOOD SPECIMENOrdering Facility: [facility] Address: [address] [place] [address] Performed By: #### 5 7021-8 ####[facility]ORATORYCLIA [id number] [place] [address] [place] MCV (RBC) [Entitic vol] 89.7 fL Normal 80.0-100.0 [facility] Comment on above: Order Comment: Speci men Type: BLOOD SPECIMENOrdering Facility: [facility] Address: [address] [place] [address] Performed By: #### 5 7021-8 ####[facility]ATORYCLIA [id number] [place] [address] [place] Monocytes (Bld) [#/Vol] 0.87 10*3/uL High <0.87 [facility] Comment on above: Order Comment: Speci men Type: BLOOD SPECIMENOrdering Facility: [facility] Address: [address] [place] [address] Performed By: #### 5 7021-8 ####[facility]ATORYCLIA [id number] [address] [place] Monocytes/100 WBC (Bld) 6.9 % Normal [facility] Comment on above: Order Comment: Speci men Type: BLOOD SPECIMENOrdering Facility: [facility] Address: [address] [place] [address] Performed By: #### 5 7021-8 ####[facility]ORATORYCLIA [id number] [place] [address] [place] Neutrophils (Bld) [#/Vol] 9.05 10*3/uL High 1.45-7.50 [facility] Comment on above: Order Comment: Speci men Type: BLOOD SPECIMENOrdering Facility: [facility] Address: [address] [place] [address] Performed By: #### 5 7021-8 ####[facility]ATORYCLIA [id number] [address] [place] Neutrophils/100 WBC (Bld) 72.2 % Normal [facility] Comment on above: Order Comment: Speci men Type: BLOOD SPECIMENOrdering Facility: [facility] Address: [address] [place] [address] Performed By: #### 5 7021-8 ####[facility]ATORYCLIA [id number] [address] Nucleated RBC (Bld) [#/Vol] 10*3/uL Normal <0.01 [facility] Comment on above: Order Comment: Speci men Type: BLOOD SPECIMENOrdering Facility: [facility] Address: [address] [place] [address] Performed By: #### 5 7021-8 ####[facility]ORATORYCLIA [id number] [address] OF [facility] Nucleated RBC/100 WBC (Bld) [Ratio] 0.0 /100 WBC Normal [facility] Comment on above: Order Comment: Speci men Type: BLOOD SPECIMENOrdering Facility: [facility] Address: [address] [place] [address] Performed By: #### 5 7021-8 ####[facility]ATORYCLIA [id number] [address] Platelet mean volume (Bld) [Entitic vol] 9.9 fL Normal 9.0-12.7 [facility] Comment on above: Order Comment: Speci men Type: BLOOD SPECIMENOrdering Facility: [facility] Address: [address] [place] [address] Performed By: #### 5 7021-8 ####[facility]ORATORYCLIA [id number] [address] [place] Platelets (Bld) [#/Vol] 335 10*3/uL Normal 150-400 [facility] Comment on above: Order Comment: Speci men Type: BLOOD SPECIMENOrdering Facility: [facility] Address: [address] [place] [address] Performed By: #### 5 7021-8 ####[facility]ATORYCLIA [id number] [address] [place] RBC (Bld) [#/Vol] 3.98 10*6/uL Low 4.20-6.00 [facility] Comment on above: Order Comment: Speci men Type: BLOOD SPECIMENOrdering Facility: [facility] Address: [address] [place] [address] Performed By: #### 5 7021-8 ####[facility]ORATORYCLIA [id number] [place] [address] [place] WBC (Bld) [#/Vol] 12.55 10*3/uL High 3.70-11.00 [facility] Comment on above: Order Comment: Speci men Type: BLOOD SPECIMENOrdering Facility: [facility] Address: [address] [place] [address] Performed By: #### 5 7021-8 ####[facility]ORATORYCLIA [id number] [address] [place] CK CREATINE KINASEon 022 CK [Catalytic activity/Vol] 72 U/L Normal 51-298 [facility] Comment on above: Order Comment: Speci men Type: BLOOD SPECIMENOrdering Facility: [facility] Address: [address] [place] [address] Performed By: #### C K, 83368-2 ####[facility]ORATORYCLIA [id number] [address] [place] CONSULT PROGon 07-08-2021 CONSULT PROG Normal [facility] CONSULT PROG Normal [facility] CSF MANUAL DIFFon 07-08-2021 DIF TTL, CSF 3 cells counted Normal [facility] Comment on above: Order Comment: Speci men Type: CEREBROSPINAL FLUIDOrdering Facility: [facility] Address: [address] [place] [address] Performed By: #### 3 4563-7, [id number] ####[facility]ORATORYCLIA [id number] [place] [address] [place] LYMPH%, CSF 33 % Low 50-90 [facility] Comment on above: Order Comment: Speci men Type: CEREBROSPINAL FLUIDOrdering Facility: [facility] Address: [address] [place] [address] Performed By: #### 3 4563-7, [id number] ####[facility] LABORATORYCLIA [id number] [place] [address] [place] MONO%, CSF 67 % High 10-50 [facility] Comment on above: Order Comment: Speci men Type: CEREBROSPINAL FLUIDOrdering Facility: [facility] Address: [address] [place] [address] Performed By: #### 3 4563-7, [id number] ####[facility]ORATORYCLIA [id number] [address] [place] CT ABD/PEL W IVCONon 022 CT ABD/PEL W IVCON Normal [facility] CT BRAIN WO IVCONon 07-09-[address] BRAIN WO IVCON Normal [facility] CT BRAIN WO IVCON Normal [facility] CT CHEST W IVCON PEon 2021 CT CHEST W IVCON PE Normal [facility] Cell count panel (CSF)on Clarity (CSF) Clear Normal Clear [facility] Comment on above: Order Comment: Speci men Type: CEREBROSPINAL FLUIDOrdering Facility: [facility] Address: [address] [place] [address] Performed By: #### 3 4563-7, [id number] ####[facility]ORATORYCLIA [id number] [address] [place] Clarity (Unsp spec) Clear Normal Clear [facility] Comment on above: Order Comment: Speci men Type: CEREBROSPINAL FLUIDOrdering Facility: [facility] Address: [address] [place] [address] Performed By: #### 3 4563-7, [id number] ####[facility]ORATORYCLIA [id number] [address] [place] Color (CSF) Colorless Normal Colorless [facility] Comment on above: Order Comment: Speci men Type: CEREBROSPINAL FLUIDOrdering Facility: [facility] Address: [address] [address] Performed By: #### 3 4563-7, [id number] ####[facility] LABORATORYCLIA [id number] [address] Color (Spun CSF) Colorless Normal Colorless [facility] Comment on above: Order Comment: Speci men Type: CEREBROSPINAL FLUIDOrdering Facility: [facility] Address: [address] [place] [address] Performed By: #### 3 4563-7, [id number] ####[facility] LABORATORYCLIA [id number] [address] CSF TUBE NUMBER [employer] Normal [facility] Comment on above: Order Comment: Speci men Type: CEREBROSPINAL FLUIDOrdering Facility: [facility] Address: [address] [place] [address] Performed By: #### 3 4563-7, [id number] ####[facility]ORATORYCLIA [id number] [address] RBC Manual cnt (CSF) [#/Vol] 94 cells/uL High 0-5 [facility] Comment on above: Order Comment: Speci men Type: CEREBROSPINAL FLUIDOrdering Facility: [facility] Address: [address] [place] [address] Performed By: #### 3 4563-7, [id number] ####[facility]ORATORYCLIA [id number] [address] WBC Manual cnt (CSF) [#/Vol] 1 cells/uL Normal 0-5 [facility] Comment on above: Order Comment: Speci men Type: CEREBROSPINAL FLUIDOrdering Facility: [facility] Address: [address] [place] [address] Performed By: #### 3 4563-7, [id number] ####[facility]ORATORYCLIA [id number] [address] OF [place] Comprehensive metabolic 2000 panelon 07-08-2021 Albumin [Mass/Vol] 3.6 g/dL Low 3.9-4.9 [facility] Comment on above: Order Comment: Speci men Type: BLOOD SPECIMENOrdering Facility: [facility] Address: [address] [place] [address] Performed By: #### Eileen Valdivia, 38396-3 ####[facility] LABORATORYCLIA [id number] [address] OF [facility] ALP [Catalytic activity/Vol] 125 U/L High 38-113 [facility] Comment on above: Order Comment: Speci men Type: BLOOD SPECIMENOrdering Facility: [facility] Address: [address] [place] [address] Performed By: #### Eileen Valdivia, 59362-7 ####[facility]ORATORYCLIA [id number] [address] OF [facility] ALT With P-5'-P [Catalytic activity/Vol] 24 U/L Normal 10-54 [facility] Comment on above: Order Comment: Speci men Type: BLOOD SPECIMENOrdering Facility: [facility] Address: [address] [place] [address] Performed By: #### Eileen Valdivia, 91151-4 ####[facility]ORATORYCLIA [id number] [address] Anion gap [Moles/Vol] 16 mmol/L Normal 9-18 [facility] Comment on above: Order Comment: Speci men Type: BLOOD SPECIMENOrdering Facility: [facility] Address: [address] [address] Performed By: #### Eileen Valdivia, 86772-4 ####[facility]ORATORYCLIA [id number] [address] AST With P-5'-P [Catalytic activity/Vol] 21 U/L Normal 14-40 [facility] Comment on above: Order Comment: Speci men Type: BLOOD SPECIMENOrdering Facility: [facility] Address: [address] [place] [address] Performed By: #### Eileen Valdivia, 03546-5 ####[facility]ORATORYCLIA [id number] [place] [address] [place] Bilirubin [Mass/Vol] 0.3 mg/dL Normal 0.2-1.3 [facility] Comment on above: Order Comment: Speci men Type: BLOOD SPECIMENOrdering Facility: [facility] Address: [address] [place] [address] Performed By: #### Eileen Valdivia, 74788-8 ####[facility]ORATORYCLIA [id number] [place] [address] [place] Calcium [Mass/Vol] 8.9 mg/dL Normal 8.5-10.2 [facility] Comment on above: Order Comment: Speci men Type: BLOOD SPECIMENOrdering Facility: [facility] Address: [address] [place] [address] Performed By: #### Eileen Valdivia, 43122-8 ####[facility]ORATORYCLIA [id number] [place] [address] [place] Chloride [Moles/Vol] 96 mmol/L Low 97-105 [facility] Comment on above: Order Comment: Speci men Type: BLOOD SPECIMENOrdering Facility: [facility] Address: [address] [place] [address] Performed By: #### Eileen Valdivia, 81901-1 ####[facility]ORATORYCLIA [id number] [place] [address] [place] CO2 [Moles/Vol] 27 mmol/L Normal 22-30 [facility] Comment on above: Order Comment: Speci men Type: BLOOD SPECIMENOrdering Facility: [facility] Address: [address] [place] [address] Performed By: #### Eileen Valdivia, 28794-8 ####[facility] LABORATORYCLIA [id number] [place] [address] [place] Creatinine [Mass/Vol] 0.68 mg/dL Low 0.73-1.22 [facility] Comment on above: Order Comment: Speci men Type: BLOOD SPECIMENOrdering Facility: [facility] Address: [address] [place] [address] Performed By: #### Eileen Valdivia, 29042-5 ####[facility]OSPITALCLIA [id number] [address] ESTIMATED GLOMERULAR FILTRATION RATE 101 mL/min/1.73m??? Normal >=60 [facility] Comment on above: Order Comment: Shira feldman Type: BLOOD SPECIMENOrdering Facility: [facility] Address: [address] [place] [address] Result Comment: Luzmaria mated Glomerular Filtration Rate [...] actual GFR. Performed By: #### Eileen Valdivia, 23947-2 ####[facility]KENAZI HOSPITALIA [id number] [address] [place] Glucose [Mass/Vol] 130 mg/dL High 74-99 [facility] Comment on above: Order Comment: Shira feldman Type: BLOOD SPECIMENOrdering Facility: [facility] Address: [address] [place] [address] Result Comment: The [place] Diabetes Association (ADA) provides guidance for cutoff [...] Standards of Medical Care in Diabetes 2016, [place] Diabetes Association. Diabetes Care. 2016.39(Suppl 1). Performed By: #### Eileen Valdivia, 13946-8 ####[facility]ORATORYCLIA [id number] [address] STATES OF [facility] Potassium [Moles/Vol] 3.9 mmol/L Normal 3.7-5.1 [facility] Comment on above: Order Comment: Speci men Type: BLOOD SPECIMENOrdering Facility: [facility] Address: [address] [place] [address] Performed By: #### C Skip, 42240-2 ####[facility] LABORATORYCLIA [id number] [address] OF [facility] Protein [Mass/Vol] 7.0 g/dL Normal 6.3-8.0 [facility] Comment on above: Order Comment: Speci men Type: BLOOD SPECIMENOrdering Facility: [facility] Address: [address] [place] [address] Performed By: #### Eileen Valdivia, 05087-4 ####[facility]ATORYCLIA [id number] [address] Sodium [Moles/Vol] 139 mmol/L Normal 136-144 [facility] Comment on above: Order Comment: Speci men Type: BLOOD SPECIMENOrdering Facility: [facility] Address: [address] [place] [address] Performed By: #### Eileen Valdivia, 00112-9 ####[facility]ORATORYCLIA [id number] [address] Urea nitrogen [Mass/Vol] 16 mg/dL Normal 9-24 [facility] Comment on above: Order Comment: Speci men Type: BLOOD SPECIMENOrdering Facility: [facility] Address: [address] [place] [address] Performed By: #### Eileen Valdivia, 87109-9 ####[facility]ORATORYCLIA [id number] [address] ED NOTEon 07-08-2021 ED NOTE HNO ID: [id number] Author: Lenora James RN Service: Emergency Medicine Author Type: Registered Nurse Type: ED Notes Filed: 07/08/2021 5:03 PM Note Text: Pt to OR with surgical team [facility] ED NOTE HNO ID: [id number] Author: Lenora James RN Service: Emergency Medicine Author Type: Registered Nurse Type: ED Notes Filed: 07/08/2021 4:50 PM Note Text: OR team to get pt [facility] ED NOTE HNO ID: [id number] Author: Lenora James RN Service: Emergency Medicine Author Type: Registered Nurse Type: ED Notes Filed: 07/08/2021 4:50 PM Note Text: Normal [facility] ED NOTE HNO ID: [id number] Author: Lenora James RN Service: Emergency Medicine Author Type: Registered Nurse Type: ED Notes Filed: 07/08/2021 4:50 PM Note Text: Spoke with presurg; pt to go to OR now [facility] ED NOTE HNO ID: [id number] Author: Lenora James RN Service: Emergency Medicine Author Type: Registered Nurse Type: ED Notes Filed: 07/08/2021 4:12 PM Note Text: Neurosurgery at beside [facility] ED NOTE HNO ID: [id number] Author: Lenora James RN Service: Emergency Medicine Author Type: Registered Nurse Type: ED Notes Filed: 07/08/2021 2:35 PM Note Text: respiratory aware of pt breathing treatments [facility] ED NOTE HNO ID: [id number] Author: Lisa Woo RN Service: ? Author Type: Registered Nurse Type: ED Notes Filed: 07/08/2021 2:20 PM Note Text: Xray notified pt is ready. [facility] ED NOTE HNO ID: [id number] Author: Lenora James RN Service: Emergency Medicine Author Type: Registered Nurse Type: ED Notes Filed: 07/08/2021 12:14 PM Note Text: CT notified regarding imaging orders placed [facility] ED NOTE Normal [facility] ED PROV NOTEon 07-08-2021 ED PROV NOTE Normal [facility] Glucose CSF-mCncon Glucose (CSF) [Mass/Vol] 88 mg/dL High 40-70 [facility] Comment on above: Order Comment: Shira feldman Type: CEREBROSPINAL FLUIDOrdering Facility: [facility] Address: [address] [place] [address] Result Comment: Lumb ar CSF glucose values of healthy patients are approximately 60% of the plasma values and must always be compared with a concurrently measured plasma value for adequate clinical interpretation.References: 1. Glucose HK (GLUC3) [package insert V 12.0 Angu[place]an]. [employer], [place], [place]. September 2015. 2. Michelle Moore, Loki HGarfield (2015). Chapter 7: Glucose and Lactate. F. Irina rose al.(eds.), Cerebrospinal Fluid in Clinical Neurology. [place]: [employer]. Performed By: #### 2 880-3, 2342-4 ####[facility]ORATORYCLIA [id number] [address] OF [facility] HIGH SENSITIVITY TROPONIN To n 07-08-2021 HIGH SENSITIVITY TAMIKO 27 ng/L High <12 [facility] Comment on above: Order Comment: Shira feldman Type: BLOOD SPECIMENOrdering Facility: [facility] Address: [address] [place] [address] Result Comment: When assessing risk for acute [...] day MACE. Performed By: #### H STNT ####[facility]ATORYCLIA [id number] [address] HIGH SENSITIVITY TAMIKO 36 ng/L High <12 [facility] Comment on above: Order Comment: Shira francia Type: BLOOD SPECIMENOrdering Facility: [facility] Address: [address] [address] Result Comment: When assessing risk for acute [...] day MACE. Performed By: #### H STNT ####[facility]ORATORYCLIA [id number] [address] [place] HISTORY PHYSICALon 2 HISTORY PHYSICAL Normal [facility] NURSING PROGon 07-08-2021 NURSING PROG Normal [facility] OPERATIVE NOon 07-08-2021 OPERATIVE NO Normal [facility] Prot CSF-mCncon 07-08-2021 Protein (CSF) [Mass/Vol] 33 mg/dL Normal 15-45 [facility] Comment on above: Order Comment: Speci men Type: CEREBROSPINAL FLUIDOrdering Facility: [facility] Address: [address] [place] [address] Performed By: #### 2 880-3, 2342-4 ####[facility]ORATORYCLIA [id number] [address] [place] SARS-CoV-2 RNA Resp Ql MEGAN+p robeon 07-08-2021 SARS-CoV-2 (COVID-19) RNA MEGAN+probe Ql (Resp) COVID 19 RESULT: SARS-CoV-2 (Agent of COVID-19) Not Detected by RT-PCR or equivalent method. This test has been authorized by FDA under an Emergency Use Authorization (EUA). Normal [facility] Comment on above: Performed By: #### 9 4500-6 ####[facility]ATORYCLIA [id number] [address] [place] STAPH AUREUS PCRon 2 S. aureus and MRSA panel MEGAN+probe (Nose) Normal Negative [facility] Comment on above: Order Comment: Speci men Type: SWAB OF INTERNAL NOSEOrdering Facility: [facility] Address: [address] [place] [address] Result Comment: Nega tive for Staphylococcus aureus by PCR.Negative for MRSA by PCR Performed By: #### S APCR ####[facility]ORATORYCLIA [id number] [address] Urinalysis complete panel (U )on 07-08-2021 Bacteria LM.HPF (Urine sed) [#/Area] Few Abnormal None Seen [facility] Comment on above: Order Comment: Speci men Type: URINE SPECIMENOrdering Facility: [facility] Address: [address] [place] [address] Performed By: #### 2 4356-8 ####[facility]ATORYCLIA [id number] [address] Bilirubin Ql (U) Negative Normal Negative [facility] Comment on above: Order Comment: Speci men Type: URINE SPECIMENOrdering Facility: [facility] Address: [address] [place] [address] Performed By: #### 2 4356-8 ####[facility]ORATORYCLIA [id number] [address] Clarity (Unsp spec) Turbid Abnormal Clear [facility] Comment on above: Order Comment: Speci men Type: URINE SPECIMENOrdering Facility: [facility] Address: [address] [place] [address] Performed By: #### 2 4356-8 ####[facility]ATORYCLIA [id number] [address] Color (U) Light Yellow Normal yellow [facility] Comment on above: Order Comment: Speci men Type: URINE SPECIMENOrdering Facility: [facility] Address: [address] [place] [address] Performed By: #### 2 4356-8 ####[facility]ATORYCLIA [id number] [address] Glucose Test strip (U) [Mass/Vol] Negative Normal Negative [facility] Comment on above: Order Comment: Speci men Type: URINE SPECIMENOrdering Facility: [facility] Address: [address] [place] [address] Performed By: #### 2 4356-8 ####[facility]ATORYCLIA [id number] [address] Hemoglobin Ql (U) Negative Normal Negative [facility] Comment on above: Order Comment: Speci men Type: URINE SPECIMENOrdering Facility: [facility] Address: [address] [place] [address] Performed By: #### 2 4356-8 ####[facility]ATORYCLIA [id number] [address] [place] Hyaline casts (Urine sed) [#/Area] 1-3 /LPF Abnormal 0 /LPF [facility] Comment on above: Order Comment: Speci men Type: URINE SPECIMENOrdering Facility: [facility] Address: [address] [place] [address] Performed By: #### 2 4356-8 ####[facility]ATORYCLIA [id number] [address] [place] [facility] Ketones Ql (U) Negative Normal Negative [facility] Comment on above: Order Comment: Speci men Type: URINE SPECIMENOrdering Facility: [facility] Address: [address] [place] [address] Performed By: #### 2 4356-8 ####[facility]ATORYCLIA [id number] [address] Leukocyte esterase Test strip Ql (U) Negative Normal Negative [facility] Comment on above: Order Comment: Speci men Type: URINE SPECIMENOrdering Facility: [facility] Address: [address] [place] [address] Performed By: #### 2 4356-8 ####[facility]ATORYCLIA [id number] [address] [place] Nitrite Ql (U) Negative Normal Negative [facility] Comment on above: Order Comment: Speci men Type: URINE SPECIMENOrdering Facility: [facility] Address: [address] [place] [address] Performed By: #### 2 4356-8 ####[facility]ORATORYCLIA [id number] [address] pH (U) 5.0 [pH] Normal 5.0-8.0 [facility] Comment on above: Order Comment: Speci men Type: URINE SPECIMENOrdering Facility: [facility] Address: [address] [place] [address] Performed By: #### 2 4356-8 ####[facility]ATORYCLIA [id number] [address] Protein (U) [Mass/Vol] Negative Normal Negative [facility] Comment on above: Order Comment: Speci men Type: URINE SPECIMENOrdering Facility: [facility] Address: [address] [place] [address] Performed By: #### 2 4356-8 ####[facility]OSPITALCLIA [id number] [address] [place] RBC LM.HPF (Urine sed) [#/Area] 11-25 /HPF Abnormal 0-3 /HPF [facility] Comment on above: Order Comment: Speci men Type: URINE SPECIMENOrdering Facility: [facility] Address: [address] [place] [address] Performed By: #### 2 4356-8 ####[facility] HOSPITALCLIA [id number] [address] Specific gravity (U) [Rel density] 1.018 Normal 1.005-1.030 [facility] Comment on above: Order Comment: Speci men Type: URINE SPECIMENOrdering Facility: [facility] Address: [address] [place] [address] Performed By: #### 2 4356-8 ####[facility]ATORYCLIA [id number] [address] Urobilinogen Ql (U) Normal Normal Negative [facility] Comment on above: Order Comment: Speci men Type: URINE SPECIMENOrdering Facility: [facility] Address: [address] [place] [address] Performed By: #### 2 4356-8 ####[facility]ATORYCLIA [id number] [address] WBC LM.HPF (Urine sed) [#/Area] /[HPF] Abnormal 0-5 /HPF [facility] Comment on above: Order Comment: Speci men Type: URINE SPECIMENOrdering Facility: [facility] Address: [address] [place] [address] Performed By: #### 2 4356-8 ####[facility]ORATORYCLIA [id number] [address] OF [facility] Vancomycin random [Mass/Vol] on 07-08-2021 Vancomycin [Mass/Vol] 31.0 ug/mL High 10.0-20.0 [facility] Comment on above: Order Comment: Speci men Type: BLOOD SPECIMENOrdering Facility: [facility] Address: [address] [place] [address] Result Comment: Refe rence ranges and high/low indicator flags are provided as general guidelines only. The treating physician must determine appropriate target levels/dosing based on the specific clinical situation. Performed By: #### 4 091-5 ####[facility]ATORYCLIA [id number] [address] XR ABD 2V SUPINE W UPR/DECUB /CTLon 07-08-2021 XR ABD 2V SUPINE W UPR/DECUB/CTL Normal [facility] XR CHEST 1V FRONTALon 2021 XR CHEST 1V FRONTAL Normal [facility] XR CHEST 1V FRONTAL Normal [facility] XR NECK SOFT TISSUE 2V AP/LA Ton 07-08-2021 XR NECK SOFT TISSUE 2V AP/LAT Normal [facility] XR SKULL 2V AP/LATon 022 XR SKULL 2V AP/LAT Normal [facility] HISTORY PHYSICALon HISTORY PHYSICAL HNO ID: [id number] Author: Amy Beltran MD Service: ? Author Type: Physician Type: HANDP Filed: 06/30/2021 6:42 PM Note Text: Connected Care Unit History and Physical Facility: [place] Level of Care: Skilled Admission Date: June [...] regarding the above plan. Total time spent sdyl-[id number] and/or counseling and coordinating care on the skilled care unit for patient was approximately 45 minutes SUBJECTIVE (HISTORY) Chief Complaint: Confusion, infection, blood clot. Andrew Sifuentes is being seen today for senior living facility (SNF) admission AND management of weakness, tube feed, infected retroperitoneal infection and seizure. HPI: This is a 71 year old male who presents from [facility] with primary admitting diagnosis of [...] CT brain concerning for hydrocephalus. Tip of [employer] shunt was found to be in the [...] Status: Fu (more content not included)... Normal [facility] Basic metabolic 2000 panelon 06-28-2021 Anion gap [Moles/Vol] 7 mmol/L Low 9-18 [facility] Comment on above: Order Comment: Speci men Type: BLOOD SPECIMENOrdering Facility: [facility] Address: [address] [place] [address] Performed By: #### 2 2, ####27 bardsST. MARY'S MEDICAL CENTER LABORATORYCLIA [id number] [place] [address] [place] Calcium [Mass/Vol] 8.8 mg/dL Normal 8.5-10.2 [facility] Comment on above: Order Comment: Speci men Type: BLOOD SPECIMENOrdering Facility: [facility] Address: [address] [place] [address] Performed By: #### 2 4320-06, ####[facility]ATORYCLIA [id number] [place] [address] [place] Chloride [Moles/Vol] 103 mmol/L Normal 97-105 [facility] Comment on above: Order Comment: Speci men Type: BLOOD SPECIMENOrdering Facility: [facility] Address: [address] [place] [address] Performed By: #### 2 4320-06, ####[facility]ORATORYCLIA [id number] [place] [address] [place] CO2 [Moles/Vol] 28 mmol/L Normal 22-30 [facility] Comment on above: Order Comment: Speci men Type: BLOOD SPECIMENOrdering Facility: [facility] Address: [address] [place] [address] Performed By: #### 2 2, ####[facility]ORATORYCLIA [id number] [place] [address] [place] Creatinine [Mass/Vol] 0.57 mg/dL Low 0.73-1.22 [facility] Comment on above: Order Comment: Johncara feldman Type: BLOOD SPECIMENOrdering Facility: [facility] Address: [address] [place], [place] [id number] Performed By: #### 2 4321-2, ####[facility]ORATORYCLIA [id number] [place] [address] [place] GFR/1.73 sq M.predicted MDRD (S/P/Bld) [Vol rate/Area] mL/min/{1.73_m2} Normal [facility] Comment on above: Order Comment: Johncara feldman Type: BLOOD SPECIMENOrdering Facility: [facility] Address: [address] [place] [address] Result Comment: >60e GFR (Estimated GFR) Units [...] actual GFR. Performed By: #### 2 4321-2, ####[facility]ORATORYCLIA [id number] [address] [place] Glucose [Mass/Vol] 120 mg/dL High 74-99 [facility] Comment on above: Order Comment: Shira francia Type: BLOOD SPECIMENOrdering Facility: [facility] Address: [address] [place], [place] [id number] Result Comment: The [place] Diabetes Association (ADA) provides guidance for cutoff [...] Standards of Medical Care in Diabetes 2016, [place] [employer]. Diabetes Care. 2016.39(Suppl 1). Performed By: #### 2 43205-08, ####[facility]ORATORYCLIA [id number] [address] OF [facility] Potassium [Moles/Vol] 3.8 mmol/L Normal 3.7-5.1 [facility] Comment on above: Order Comment: Speci francia Type: BLOOD SPECIMENOrdering Facility: [facility] Address: [address] [place] [address] Performed By: #### 2 4320-06, ####[facility]PITALCLIA [id number] [address] Sodium [Moles/Vol] 138 mmol/L Normal 136-144 [facility] Comment on above: Order Comment: Shira feldman Type: BLOOD SPECIMENOrdering Facility: [facility] Address: [address] [place] [address] Performed By: #### 2 4320-06, ####[facility]ORATORYCLIA [id number] [address] Urea nitrogen [Mass/Vol] 24 mg/dL Normal 9-24 [facility] Comment on above: Order Comment: Speci men Type: BLOOD SPECIMENOrdering Facility: [facility] Address: [address] [place] [address] Performed By: #### 2 4320-06, ####[facility]ORATORYCLIA [id number] [address] STATES OF [facility] CASE MANAGEMon 06-28-2021 CASE MANAGEM Normal [facility] CBC panel Auto (Bld)on 06-28 Erythrocyte distribution width (RBC) [Ratio] 15.6 % High 11.5-15.0 [facility] Comment on above: Order Comment: Speci men Type: BLOOD SPECIMENOrdering Facility: [facility] Address: [address] [place] [address] Performed By: #### 5 8410-2 ####[facility]ORATORYCLIA [id number] [address] Hematocrit (Bld) [Volume fraction] 30.5 % Low 39.0-51.0 [facility] Comment on above: Order Comment: Speci men Type: BLOOD SPECIMENOrdering Facility: [facility] Address: [address] [place] [address] Performed By: #### 5 8410-2 ####[facility]ORATORYCLIA [id number] [address] OF [facility] Hemoglobin (Bld) [Mass/Vol] 9.4 g/dL Low 13.0-17.0 [facility] Comment on above: Order Comment: Speci men Type: BLOOD SPECIMENOrdering Facility: [facility] Address: [address] [place] [place] [address] Performed By: #### 5 8410-2 ####[facility]ORATORYCLIA [id number] [address] MCH (RBC) [Entitic mass] 27.8 pg Normal 26.0-34.0 [facility] Comment on above: Order Comment: Speci men Type: BLOOD SPECIMENOrdering Facility: [facility] Address: [address] [place] [address] Performed By: #### 5 8410-2 ####[facility]ATORYCLIA [id number] [address] MCHC (RBC) [Mass/Vol] 30.8 g/dL Normal 30.5-36.0 [facility] Comment on above: Order Comment: Speci men Type: BLOOD SPECIMENOrdering Facility: [facility] Address: [address] [place] [address] Performed By: #### 5 8410-2 ####[facility]ATORYCLIA [id number] [address] MCV (RBC) [Entitic vol] 90.2 fL Normal 80.0-100.0 [facility] Comment on above: Order Comment: Speci men Type: BLOOD SPECIMENOrdering Facility: [facility] Address: [address] [place] [address] Performed By: #### 5 8410-2 ####[facility]ATORYCLIA [id number] [address] Nucleated RBC (Bld) [#/Vol] 10*3/uL Normal <0.01 [facility] Comment on above: Order Comment: Speci men Type: BLOOD SPECIMENOrdering Facility: [facility] Address: [address] [place] [address] Performed By: #### 5 8410-2 ####[facility]ATORYCLIA [id number] [address] Platelet mean volume (Bld) [Entitic vol] 9.9 fL Normal 9.0-12.7 [facility] Comment on above: Order Comment: Speci men Type: BLOOD SPECIMENOrdering Facility: [facility] Address: [address] [place] [address] Performed By: #### 5 8410-2 ####[facility]ATORYCLIA [id number] [address] Platelets (Bld) [#/Vol] 333 10*3/uL Normal 150-400 [facility] Comment on above: Order Comment: Speci men Type: BLOOD SPECIMENOrdering Facility: [facility] Address: [address] [place] [address] Performed By: #### 5 8410-2 ####[facility]ATORYCLIA [id number] [address] [place] RBC (Bld) [#/Vol] 3.38 10*6/uL Low 4.20-6.00 [facility] Comment on above: Order Comment: Speci men Type: BLOOD SPECIMENOrdering Facility: [facility] Address: [address] [place] [address] Performed By: #### 5 8410-2 ####[facility]ATORYCLIA [id number] [place] [address] [place] WBC (Bld) [#/Vol] 9.71 10*3/uL Normal 3.70-11.00 [facility] Comment on above: Order Comment: Speci men Type: BLOOD SPECIMENOrdering Facility: [facility] Address: [address] [place] [address] Performed By: #### 5 8410-2 ####[facility]ORATORYCLIA [id number] [address] [place] CNDSon 06-28-2021 CNDS Normal [facility] CONSULT PROGon 06-28-2021 CONSULT PROG Normal [facility] Magnesium SerPl-mCncon 06-28 Magnesium [Mass/Vol] 2.2 mg/dL Normal 1.7-2.3 [facility] Comment on above: Order Comment: Speci men Type: BLOOD SPECIMENOrdering Facility: [facility] Address: [address] [place] [address] Performed By: #### 2 4321-2, 96497-8 ####[facility]ATORYCLIA [id number] [address] [place] Vancomycin random [Mass/Vol] on 06-28-2021 Vancomycin [Mass/Vol] 23.0 ug/mL High 10.0-20.0 [facility] Comment on above: Order Comment: Speci men Type: BLOOD SPECIMENOrdering Facility: [facility] Address: [address] [place] [address] Result Comment: Refe rence ranges and high/low indicator flags are provided as general guidelines only. The treating physician must determine appropriate target levels/dosing based on the specific clinical situation. Performed By: #### 4 091-5 ####[facility]ATORYCLIA [id number] [place] [address] [place] ALLIED HEALTHon 06-27-2021 ALLIED HEALTH Normal [facility] Basic metabolic 2000 panelon 06-27-2021 Anion gap [Moles/Vol] 10 mmol/L Normal 9-18 [facility] Comment on above: Order Comment: Speci men Type: BLOOD SPECIMENOrdering Facility: [facility] Address: [address] [place] [address] Performed By: #### 2 4322, ####[facility]ORATORYCLIA [id number] [place] [id number] [place] Calcium [Mass/Vol] 8.8 mg/dL Normal 8.5-10.2 [facility] Comment on above: Order Comment: Speci men Type: BLOOD SPECIMENOrdering Facility: [facility] Address: [address] [place] [address] Performed By: #### 2 4320-06, ####[facility]ORATORYCLIA [id number] [place] [address] [place] Chloride [Moles/Vol] 104 mmol/L Normal 97-105 [facility] Comment on above: Order Comment: Speci men Type: BLOOD SPECIMENOrdering Facility: [facility] Address: [address] [place] [address] Performed By: #### 2 2, ####[facility]ORATORYCLIA [id number] [place] [id number] [place] CO2 [Moles/Vol] 26 mmol/L Normal 22-30 [facility] Comment on above: Order Comment: Speci men Type: BLOOD SPECIMENOrdering Facility: [facility] Address: [address] [place] [address] Performed By: #### 2 4322, ####[facility]ORATORYCLIA [id number] [place] [id number] [place] Creatinine [Mass/Vol] 0.57 mg/dL Low 0.73-1.22 [facility] Comment on above: Order Comment: Shira feldman Type: BLOOD SPECIMENOrdering Facility: [facility] Address: [address] [phone] Performed By: #### 2 4321-2, ####[facility]ORATORYCLIA [id number] [place] [address] [place] GFR/1.73 sq M.predicted MDRD (S/P/Bld) [Vol rate/Area] mL/min/{1.73_m2} Normal [facility] Comment on above: Order Comment: [facility] Type: BLOOD SPECIMENOrdering Facility: [facility] Address: [address] [place], [place] [phone] Result Comment: >60e GFR (Estimated GFR) Units [...] actual GFR. Performed By: #### 2 4321-2, ####[facility]ORATORYCLIA [id number] [place] [address] [place] Glucose [Mass/Vol] 133 mg/dL High 74-99 [facility] Comment on above: Order Comment: Johncara feldman Type: BLOOD SPECIMENOrdering Facility: [facility] Address: [address] [phone] Result Comment: The [place] Diabetes Association (ADA) provides guidance for cutoff [...] Standards of Medical Care in Diabetes 2016, [place] [employer]. Diabetes Care. 2016.39(Suppl 1). Performed By: #### 2 4321-2, ####[facility]ORATORYCLIA [id number] [place] [address] [place] [facility] Potassium [Moles/Vol] 4.2 mmol/L Normal 3.7-5.1 [facility] Comment on above: Order Comment: Johni francia Type: BLOOD SPECIMENOrdering Facility: [facility] Address: [address] [place] [address] Performed By: #### 2 4320-06, ####[facility]ORATORYCLIA [id number] [address] STATES [facility] Sodium [Moles/Vol] 140 mmol/L Normal 136-144 [facility] Comment on above: Order Comment: Shira feldman Type: BLOOD SPECIMENOrdering Facility: [facility] Address: [address] [place] [address] Performed By: #### 2 4320-06, ####[facility]ORATORYCLIA [id number] [address] STATES [facility] Urea nitrogen [Mass/Vol] 24 mg/dL Normal 9-24 [facility] Comment on above: Order Comment: Shira feldman Type: BLOOD SPECIMENOrdering Facility: [facility] Address: [address] [place] [address] Performed By: #### 2 4320-06, ####[facility]ATORYCLIA [id number] [address] [place] CASE MANAGEMon 06-27-2021 CASE MANAGEM Normal [facility] CBC panel Auto (Bld)on 06-27 Erythrocyte distribution width (RBC) [Ratio] 15.8 % High 11.5-15.0 [facility] Comment on above: Order Comment: Speci men Type: BLOOD SPECIMENOrdering Facility: [facility] Address: [address] [place] [address] Performed By: #### 5 8410-2 ####[facility]ATORYCLIA [id number] [address] Hematocrit (Bld) [Volume fraction] 31.4 % Low 39.0-51.0 [facility] Comment on above: Order Comment: Speci men Type: BLOOD SPECIMENOrdering Facility: [facility] Address: [address] [place] [address] Performed By: #### 5 8410-2 ####[facility]ORATORYCLIA [id number] [address] OF [facility] Hemoglobin (Bld) [Mass/Vol] 9.3 g/dL Low 13.0-17.0 [facility] Comment on above: Order Comment: Speci men Type: BLOOD SPECIMENOrdering Facility: [facility] Address: [address] [place] [address] Performed By: #### 5 8410-2 ####[facility]ORATORYCLIA [id number] [address] MCH (RBC) [Entitic mass] 27.0 pg Normal 26.0-34.0 [facility] Comment on above: Order Comment: Speci men Type: BLOOD SPECIMENOrdering Facility: [facility] Address: [address] [place] [address] Performed By: #### 5 8410-2 ####[facility]ATORYCLIA [id number] [address] [place] MCHC (RBC) [Mass/Vol] 29.6 g/dL Low 30.5-36.0 [facility] Comment on above: Order Comment: Speci men Type: BLOOD SPECIMENOrdering Facility: [facility] Address: [address] [place] [address] Performed By: #### 5 8410-2 ####[facility]ORATORYCLIA [id number] [address] OF [facility] MCV (RBC) [Entitic vol] 91.3 fL Normal 80.0-100.0 [facility] Comment on above: Order Comment: Speci men Type: BLOOD SPECIMENOrdering Facility: [facility] Address: [address] [place] [address] Performed By: #### 5 8410-2 ####[facility]ATORYCLIA [id number] [address] Nucleated RBC (Bld) [#/Vol] 10*3/uL Normal <0.01 [facility] Comment on above: Order Comment: Speci men Type: BLOOD SPECIMENOrdering Facility: [facility] Address: [address] [place] [address] Performed By: #### 5 8410-2 ####[facility]ATORYCLIA [id number] [address] Platelet mean volume (Bld) [Entitic vol] 10.3 fL Normal 9.0-12.7 [facility] Comment on above: Order Comment: Speci men Type: BLOOD SPECIMENOrdering Facility: [facility] Address: [address] [place] [address] Performed By: #### 5 8410-2 ####[facility]ATORYCLIA [id number] [address] Platelets (Bld) [#/Vol] 359 10*3/uL Normal 150-400 [facility] Comment on above: Order Comment: Speci men Type: BLOOD SPECIMENOrdering Facility: [facility] Address: [address] [place] [address] Performed By: #### 5 8410-2 ####[facility]ATORYCLIA [id number] [address] [place] RBC (Bld) [#/Vol] 3.44 10*6/uL Low 4.20-6.00 [facility] Comment on above: Order Comment: Speci men Type: BLOOD SPECIMENOrdering Facility: [facility] Address: [address] [place] [address] Performed By: #### 5 8410-2 ####[facility]ATORYCLIA [id number] [address] STATES OF [facility] WBC (Bld) [#/Vol] 10.73 10*3/uL Normal 3.70-11.00 [facility] Comment on above: Order Comment: Speci men Type: BLOOD SPECIMENOrdering Facility: [facility] Address: [address] [place] [address] Performed By: #### 5 8410-2 ####[facility]ATORYCLIA [id number] [address] [place] Magnesium SerPl-ncon 06-27 Magnesium [Mass/Vol] 2.2 mg/dL Normal 1.7-2.3 [facility] Comment on above: Order Comment: Speci men Type: BLOOD SPECIMENOrdering Facility: [facility] Address: [address] [place] [address] Performed By: #### 2 4321-2, 24336-1 ####[facility]ATORYCLIA [id number] [address] [place] NT-proBNP SerPl-[facility]on [facility]-27 Natriuretic peptide.B prohormone N-Terminal [Mass/Vol] 184 pg/mL High <125 [facility] Comment on above: Order Comment: Speci men Type: BLOOD SPECIMENOrdering Facility: [facility] Address: [address] [place] [address] Performed By: #### 3 3762-6 ####[facility]ATORYCLIA [id number] [place] [address] [place] NUTRITIONon 06-27-2021 NUTRITION Normal [facility] THERAPY NTon 06-27-2021 THERAPY NT Normal [facility] THERAPY NT Normal [facility] XR CHEST 1V FRONTALon 2021 XR CHEST 1V FRONTAL Normal [facility] Basic metabolic 2000 panelon 06-26-2021 Anion gap [Moles/Vol] 9 mmol/L Normal 9-18 [facility] Comment on above: Order Comment: Speci men Type: BLOOD SPECIMENOrdering Facility: [facility] Address: [address] [place] [address] Performed By: #### 1 9123-9, 40336-1 ####[facility]ORATORYCLIA [id number] [place] [address] [place] Calcium [Mass/Vol] 8.7 mg/dL Normal 8.5-10.2 [facility] Comment on above: Order Comment: Speci men Type: BLOOD SPECIMENOrdering Facility: [facility] Address: [address] [place] [address] Performed By: #### 1 9123-9, 19934-9 ####[facility]ORATORYCLIA [id number] [place] [address] [place] Chloride [Moles/Vol] 105 mmol/L Normal 97-105 [facility] Comment on above: Order Comment: Speci men Type: BLOOD SPECIMENOrdering Facility: [facility] Address: [address] [place] [address] Performed By: #### 1 9123-9, 83658-6 ####[facility] LABORATORYCLIA [id number] [place] [address] [place] CO2 [Moles/Vol] 26 mmol/L Normal 22-30 [facility] Comment on above: Order Comment: Speci men Type: BLOOD SPECIMENOrdering Facility: [facility] Address: [address] [address] Performed By: #### 1 9123-9, 98230-9 ####[facility]ORATORYCLIA [id number] [place] [address] [place] Creatinine [Mass/Vol] 0.56 mg/dL Low 0.73-1.22 [facility] Comment on above: Order Comment: Speci men Type: BLOOD SPECIMENOrdering Facility: [facility] Address: [address] [place] [address] Performed By: #### 1 9123-9, 65818-4 ####[facility]ORATORYCLIA [id number] [place] [id number] [place] GFR/1.73 sq M.predicted MDRD (S/P/Bld) [Vol rate/Area] mL/min/{1.73_m2} Normal [facility] Comment on above: Order Comment: Shira feldman Type: BLOOD SPECIMENOrdering Facility: [facility] Address: [address] [address] Result Comment: >60e GFR (Estimated GFR) Units [...] actual GFR. Performed By: #### 1 9123-9, 52231-0 ####[facility]ORATORYCLIA [id number] [place] [id number] [place] Glucose [Mass/Vol] 134 mg/dL High 74-99 [facility] Comment on above: Order Comment: Shira feldman Type: BLOOD SPECIMENOrdering Facility: [facility] Address: [address] [address] Result Comment: The [place] Diabetes Association (ADA) provides guidance for cutoff [...] Standards of Medical Care in Diabetes 2016, [place] [employer]. Diabetes Care. 2016.39(Suppl 1). Performed By: #### 1 9123-9, 59322-4 ####[facility]ORATORYCLIA [id number] [place] [address] [place] Potassium [Moles/Vol] 3.8 mmol/L Normal 3.7-5.1 [facility] Comment on above: Order Comment: Speci men Type: BLOOD SPECIMENOrdering Facility: [facility] Address: [address] [place] [address] Performed By: #### 1 9123-9, 34135-5 ####[facility]ORATORYCLIA [id number] [address] [place] Sodium [Moles/Vol] 140 mmol/L Normal 136-144 [facility] Comment on above: Order Comment: Speci men Type: BLOOD SPECIMENOrdering Facility: [facility] Address: [address] [place] [address] Performed By: #### 1 9123-9, 76615-2 ####[facility]ORATORYCLIA [id number] [address] [place] Urea nitrogen [Mass/Vol] 24 mg/dL Normal 9-24 [facility] Comment on above: Order Comment: Speci men Type: BLOOD SPECIMENOrdering Facility: [facility] Address: [address] [place] [address] Performed By: #### 1 9123-9, 11006-1 ####[facility]ORATORYCLIA [id number] [address] [place] CBC panel Auto (Bld)on 06-26 Erythrocyte distribution width (RBC) [Ratio] 15.9 % High 11.5-15.0 [facility] Comment on above: Order Comment: Speci men Type: BLOOD SPECIMENOrdering Facility: [facility] Address: [address] [place] [address] Performed By: #### 5 8410-2 ####[facility]ORATORYCLIA [id number] [address] Hematocrit (Bld) [Volume fraction] 29.8 % Low 39.0-51.0 [facility] Comment on above: Order Comment: Speci men Type: BLOOD SPECIMENOrdering Facility: [facility] Address: [address] [place] [address] Performed By: #### 5 8410-2 ####[facility]ORATORYCLIA [id number] [address] Hemoglobin (Bld) [Mass/Vol] 9.1 g/dL Low 13.0-17.0 [facility] Comment on above: Order Comment: Speci men Type: BLOOD SPECIMENOrdering Facility: [facility] Address: [address] [place] [address] Performed By: #### 5 8410-2 ####[facility]ORATORYCLIA [id number] [address] MCH (RBC) [Entitic mass] 27.8 pg Normal 26.0-34.0 [facility] Comment on above: Order Comment: Speci men Type: BLOOD SPECIMENOrdering Facility: [facility] Address: [address] [place] [address] Performed By: #### 5 8410-2 ####[facility]ORATORYCLIA [id number] [address] [place] MCHC (RBC) [Mass/Vol] 30.5 g/dL Normal 30.5-36.0 [facility] Comment on above: Order Comment: Speci men Type: BLOOD SPECIMENOrdering Facility: [facility] Address: [address] [place] [address] Performed By: #### 5 8410-2 ####[facility]ORATORYCLIA [id number] [address] MCV (RBC) [Entitic vol] 91.1 fL Normal 80.0-100.0 [facility] Comment on above: Order Comment: Speci men Type: BLOOD SPECIMENOrdering Facility: [facility] Address: [address] Performed By: #### 5 8410-2 ####[facility]ORATORYCLIA [id number] [address] [place] Nucleated RBC (Bld) [#/Vol] 10*3/uL Normal <0.01 [facility] Comment on above: Order Comment: Speci men Type: BLOOD SPECIMENOrdering Facility: [facility] Address: [address] [place] [address] Performed By: #### 5 8410-2 ####[facility]ORATORYCLIA [id number] [address] [place] Platelet mean volume (Bld) [Entitic vol] 10.3 fL Normal 9.0-12.7 [facility] Comment on above: Order Comment: Speci men Type: BLOOD SPECIMENOrdering Facility: [facility] Address: [address] [place] [address] Performed By: #### 5 8410-2 ####[facility]ORATORYCLIA [id number] [address] [place] Platelets (Bld) [#/Vol] 336 10*3/uL Normal 150-400 [facility] Comment on above: Order Comment: Speci men Type: BLOOD SPECIMENOrdering Facility: [facility] Address: [address] [place] [address] Performed By: #### 5 8410-2 ####[facility]ORATORYCLIA [id number] [address] [place] RBC (Bld) [#/Vol] 3.27 10*6/uL Low 4.20-6.00 [facility] Comment on above: Order Comment: Speci men Type: BLOOD SPECIMENOrdering Facility: [facility] Address: [address] [place] [address] Performed By: #### 5 8410-2 ####[facility]ORATORYCLIA [id number] [place] [address] [place] WBC (Bld) [#/Vol] 9.14 10*3/uL Normal 3.70-11.00 [facility] Comment on above: Order Comment: Speci men Type: BLOOD SPECIMENOrdering Facility: [facility] Address: [address] [place] [address] Performed By: #### 5 8410-2 ####[facility]ORATORYCLIA [id number] [address] [place] CONSULT PROGon 06-26-2021 CONSULT PROG Normal [facility] Magnesium SerPl-mCncon 06-26 Magnesium [Mass/Vol] 2.2 mg/dL Normal 1.7-2.3 [facility] Comment on above: Order Comment: Speci men Type: BLOOD SPECIMENOrdering Facility: [facility] Address: [address] [place] [address] Performed By: #### 1 9123-9, 04048-7 ####[facility]ORATORYCLIA [id number] [address] [place] NURSING PROGon 06-26-2021 NURSING PROG Normal [facility] NURSING PROG Normal [facility] Basic metabolic 2000 panelon 06-25-2021 Anion gap [Moles/Vol] 8 mmol/L Low 9-18 [facility] Comment on above: Order Comment: Speci men Type: BLOOD SPECIMENOrdering Facility: [facility] Address: [address] [place] [address] Performed By: #### 2 4321-2, ####[facility]ORATORYCLIA [id number] [address] [place] Calcium [Mass/Vol] 8.8 mg/dL Normal 8.5-10.2 [facility] Comment on above: Order Comment: Speci men Type: BLOOD SPECIMENOrdering Facility: [facility] Address: [address] [place] [address] Performed By: #### 2 4321-2, ####[facility]ORATORYCLIA [id number] [place] [address] [place] Chloride [Moles/Vol] 105 mmol/L Normal 97-105 [facility] Comment on above: Order Comment: Speci men Type: BLOOD SPECIMENOrdering Facility: [facility] Address: [address] [place] [address] Performed By: #### 2 4321-2, ####[facility]ORATORYCLIA [id number] [place] [address] [place] CO2 [Moles/Vol] 27 mmol/L Normal 22-30 [facility] Comment on above: Order Comment: Speci men Type: BLOOD SPECIMENOrdering Facility: [facility] Address: [address] [place] [address] Performed By: #### 2 4321-2, ####[facility] [id number] [address] [place] Creatinine [Mass/Vol] 0.59 mg/dL Low 0.73-1.22 [facility] Comment on above: Order Comment: Speci men Type: BLOOD SPECIMENOrdering Facility: [facility] Address: [address] [place] [address] Performed By: #### 2 4321-2, ####[facility]ORATORYCLIA [id number] [place] [address] [place] GFR/1.73 sq M.predicted MDRD (S/P/Bld) [Vol rate/Area] mL/min/{1.73_m2} Normal [facility] Comment on above: Order Comment: Speci men Type: BLOOD SPECIMENOrdering Facility: [facility] Address: [address] [place] [address] Result Comment: >60e GFR (Estimated GFR) Units [...] actual GFR. Performed By: #### 2 4320-06, ####[facility]ORATORYCLIA [id number] [place] [address] [place] Glucose [Mass/Vol] 132 mg/dL High 74-99 [facility] Comment on above: Order Comment: Speci men Type: BLOOD SPECIMENOrdering Facility: [facility] Address: [address] [place], [place] [id number] Result Comment: The [place] [employer] (ADA) provides guidance for cutoff [...] Standards of Medical Care in Diabetes 2016, [place] [employer]. Diabetes Care. 2016.39(Suppl 1). Performed By: #### 2 4320-06, ####[facility]ATORYCLIA [id number] [place] [address] [place] Potassium [Moles/Vol] 3.9 mmol/L Normal 3.7-5.1 [facility] Comment on above: Order Comment: Speci [facility] Type: BLOOD SPECIMENOrdering Facility: [facility] Address: [address] [place] [address] Performed By: #### 2 4320-06, ####[facility]ORATORYCLIA [id number] [place] [address] [place] Sodium [Moles/Vol] 140 mmol/L Normal 136-144 [facility] Comment on above: Order Comment: Speci men Type: BLOOD SPECIMENOrdering Facility: [facility] Address: [address] [place], [place] [address] Performed By: #### 2 4321-2, 54449-2 ####[facility] LABORATORYCLIA [id number] [address] [place] Urea nitrogen [Mass/Vol] 24 mg/dL Normal 9-24 [facility] Comment on above: Order Comment: Speci men Type: BLOOD SPECIMENOrdering Facility: [facility] Address: [address] [place] [address] Performed By: #### 2 4321-2, ####[facility] LABORATORYCLIA [id number] [address] [place] CASE MANAGEMon 06-25-2021 CASE MANAGEM Normal [facility] CBC panel Auto (Bld)on 06-25 Erythrocyte distribution width (RBC) [Ratio] 15.9 % High 11.5-15.0 [facility] Comment on above: Order Comment: Speci men Type: BLOOD SPECIMENOrdering Facility: [facility] Address: [address] [place] [address] Performed By: #### 5 8410-2 ####[facility]ATORYCLIA [id number] [address] [place] Hematocrit (Bld) [Volume fraction] 31.0 % Low 39.0-51.0 [facility] Comment on above: Order Comment: Speci men Type: BLOOD SPECIMENOrdering Facility: [facility] Address: [address] [place] [address] Performed By: #### 5 8410-2 ####[facility]ATORYCLIA [id number] [address] [place] Hemoglobin (Bld) [Mass/Vol] 9.4 g/dL Low 13.0-17.0 [facility] Comment on above: Order Comment: Speci men Type: BLOOD SPECIMENOrdering Facility: [facility] Address: [address] [place] [address] Performed By: #### 5 8410-2 ####[facility]ATORYCLIA [id number] [address] MCH (RBC) [Entitic mass] 28.1 pg Normal 26.0-34.0 [facility] Comment on above: Order Comment: Speci men Type: BLOOD SPECIMENOrdering Facility: [facility] Address: [address] [place] [address] Performed By: #### 5 8410-2 ####[facility]ATORYCLIA [id number] [address] MCHC (RBC) [Mass/Vol] 30.3 g/dL Low 30.5-36.0 [facility] Comment on above: Order Comment: Speci men Type: BLOOD SPECIMENOrdering Facility: [facility] Address: [address] [place] [address] Performed By: #### 5 8410-2 ####[facility]ATORYCLIA [id number] [address] MCV (RBC) [Entitic vol] 92.5 fL Normal 80.0-100.0 [facility] Comment on above: Order Comment: Speci men Type: BLOOD SPECIMENOrdering Facility: [facility] Address: [address] [place] [address] Performed By: #### 5 8410-2 ####[facility]ATORYCLIA [id number] [address] Nucleated RBC (Bld) [#/Vol] 10*3/uL Normal <0.01 [facility] Comment on above: Order Comment: Speci men Type: BLOOD SPECIMENOrdering Facility: [facility] Address: [address] [place] [address] Performed By: #### 5 8410-2 ####[facility]ATORYCLIA [id number] [address] Platelet mean volume (Bld) [Entitic vol] 10.5 fL Normal 9.0-12.7 [facility] Comment on above: Order Comment: Speci men Type: BLOOD SPECIMENOrdering Facility: [facility] Address: [address] [place] [address] Performed By: #### 5 8410-2 ####[facility]ORATORYCLIA [id number] [address] [place] Platelets (Bld) [#/Vol] 311 10*3/uL Normal 150-400 [facility] Comment on above: Order Comment: Speci men Type: BLOOD SPECIMENOrdering Facility: [facility] Address: [address] [place] [address] Performed By: #### 5 8410-2 ####[facility]ATORYCLIA [id number] [address] [place] RBC (Bld) [#/Vol] 3.35 10*6/uL Low 4.20-6.00 [facility] Comment on above: Order Comment: Speci men Type: BLOOD SPECIMENOrdering Facility: [facility] Address: [address] [place] [address] Performed By: #### 5 8410-2 ####[facility]ORATORYCLIA [id number] [address] STATES OF [facility] WBC (Bld) [#/Vol] 9.57 10*3/uL Normal 3.70-11.00 [facility] Comment on above: Order Comment: Speci men Type: BLOOD SPECIMENOrdering Facility: [facility] Address: [address] [place] [address] Performed By: #### 5 8410-2 ####[facility]ORATORYCLIA [id number] [address] [place] Magnesium SerPl-mCncon 06-25 Magnesium [Mass/Vol] 2.4 mg/dL High 1.7-2.3 [facility] Comment on above: Order Comment: Speci men Type: BLOOD SPECIMENOrdering Facility: [facility] Address: [address] [place] [address] Performed By: #### 2 4321-2, 46318-6 ####[facility]ORATORYCLIA [id number] [place] [address] [place] Basic metabolic 2000 panelon 06-24-2021 Anion gap [Moles/Vol] 9 mmol/L Normal 9-18 [facility] Comment on above: Order Comment: Speci men Type: BLOOD SPECIMENOrdering Facility: [facility] Address: [address] [place] [address] Performed By: #### 1 9123-9, 95006-7 ####[facility]ORATORYCLIA [id number] [place] [address] [place] Calcium [Mass/Vol] 8.6 mg/dL Normal 8.5-10.2 [facility] Comment on above: Order Comment: Speci men Type: BLOOD SPECIMENOrdering Facility: [facility] Address: [address] [place] [address] Performed By: #### 1 9123-9, 72293-4 ####[facility]ORATORYCLIA [id number] [place] [address] [place] Chloride [Moles/Vol] 103 mmol/L Normal 97-105 [facility] Comment on above: Order Comment: Speci men Type: BLOOD SPECIMENOrdering Facility: [facility] Address: [address] [place] [address] Performed By: #### 1 9123-9, 35771-4 ####[facility]ORATORYCLIA [id number] [place] [address] [place] CO2 [Moles/Vol] 26 mmol/L Normal 22-30 [facility] Comment on above: Order Comment: Speci men Type: BLOOD SPECIMENOrdering Facility: [facility] Address: [address] [place] [address] Performed By: #### 1 9123-9, 34308-9 ####[facility]ORATORYCLIA [id number] [place] [address] [place] Creatinine [Mass/Vol] 0.60 mg/dL Low 0.73-1.22 [facility] Comment on above: Order Comment: Shira feldman Type: BLOOD SPECIMENOrdering Facility: [facility] Address: [address] [phone] Performed By: #### 1 9123-9, 65870-0 ####[facility]ORATORYCLIA [id number] [place] [id number] [place] GFR/1.73 sq M.predicted MDRD (S/P/Bld) [Vol rate/Area] mL/min/{1.73_m2} Normal [facility] Comment on above: Order Comment: Shira feldman Type: BLOOD SPECIMENOrdering Facility: [facility] Address: [address] [place] [address] Result Comment: >60e GFR (Estimated GFR) Units [...] actual GFR. Performed By: #### 1 9123-9, 75018-7 ####[facility]ORATORYCLIA [id number] [place] [address] [place] Glucose [Mass/Vol] 126 mg/dL High 74-99 [facility] Comment on above: Order Comment: Shira feldman Type: BLOOD SPECIMENOrdering Facility: [facility] Address: [address] [phone] Result Comment: The [place] Diabetes [employer] (ADA) provides guidance for cutoff [...] Standards of Medical Care in Diabetes 2016, [place] [employer]. Diabetes Care. 2016.39(Suppl 1). Performed By: #### 1 9123-9, 50418-3 ####[facility]ORATORYCLIA [id number] [address] STATES OF [facility] Potassium [Moles/Vol] 3.9 mmol/L Normal 3.7-5.1 [facility] Comment on above: Order Comment: Shira feldman Type: BLOOD SPECIMENOrdering Facility: [facility] Address: [address] [place] [address] Performed By: #### 1 9123-9, 14909-0 ####[facility]ORATORYCLIA [id number] [address] Sodium [Moles/Vol] 138 mmol/L Normal 136-144 [facility] Comment on above: Order Comment: Shira feldman Type: BLOOD SPECIMENOrdering Facility: [facility] Address: [address] [place] [address] Performed By: #### 1 9123-9, 43881-0 ####[facility]ORATORYCLIA [id number] [address] STATES [facility] Urea nitrogen [Mass/Vol] 24 mg/dL Normal 9-24 [facility] Comment on above: Order Comment: Johni francia Type: BLOOD SPECIMENOrdering Facility: [facility] Address: [address] [place] [address] Performed By: #### 1 [address]12[address], 30611-8 ####[facility]ORATORYCLIA [id number] [address] OF [facility] CASE MANAGEMon 06-24-2021 CASE MANAGEM Normal [facility] CASE MANAGEM Normal [facility] CASE MANAGEM Normal [facility] CBC panel Auto (Bld)on 06-24 Erythrocyte distribution width (RBC) [Ratio] 16.1 % High 11.5-15.0 [facility] Comment on above: Order Comment: Speci men Type: BLOOD SPECIMENOrdering Facility: [facility] Address: [address] [place] [address] Performed By: #### 5 8410-2 ####[facility]ORATORYCLIA [id number] [address] Hematocrit (Bld) [Volume fraction] 31.7 % Low 39.0-51.0 [facility] Comment on above: Order Comment: Speci men Type: BLOOD SPECIMENOrdering Facility: [facility] Address: [address] [place] [address] Performed By: #### 5 8410-2 ####[facility]ORATORYCLIA [id number] [address] STATES OF [facility] Hemoglobin (Bld) [Mass/Vol] 9.7 g/dL Low 13.0-17.0 [facility] Comment on above: Order Comment: Speci men Type: BLOOD SPECIMENOrdering Facility: [facility] Address: [address] [place] [address] Performed By: #### 5 8410-2 ####[facility]ORATORYCLIA [id number] [address] [place] MCH (RBC) [Entitic mass] 28.0 pg Normal 26.0-34.0 [facility] Comment on above: Order Comment: Speci men Type: BLOOD SPECIMENOrdering Facility: [facility] Address: [address] [place] [address] Performed By: #### 5 8410-2 ####[facility]ORATORYCLIA [id number] [address] STATES [facility] MCHC (RBC) [Mass/Vol] 30.6 g/dL Normal 30.5-36.0 [facility] Comment on above: Order Comment: Speci men Type: BLOOD SPECIMENOrdering Facility: [facility] Address: [address] [place] [address] Performed By: #### 5 8410-2 ####[facility]ORATORYCLIA [id number] [address] MCV (RBC) [Entitic vol] 91.4 fL Normal 80.0-100.0 [facility] Comment on above: Order Comment: Speci men Type: BLOOD SPECIMENOrdering Facility: [facility] Address: [address] [place] [address] Performed By: #### 5 8410-2 ####[facility]ORATORYCLIA [id number] [address] Nucleated RBC (Bld) [#/Vol] 10*3/uL Normal <0.01 [facility] Comment on above: Order Comment: Speci men Type: BLOOD SPECIMENOrdering Facility: [facility] Address: [address] [place] [address] Performed By: #### 5 8410-2 ####[facility]ORATORYCLIA [id number] [address] Platelet mean volume (Bld) [Entitic vol] 11.0 fL Normal 9.0-12.7 [facility] Comment on above: Order Comment: Speci men Type: BLOOD SPECIMENOrdering Facility: [facility] Address: [address] [place] [address] Performed By: #### 5 8410-2 ####[facility]ORATORYCLIA [id number] [address] Platelets (Bld) [#/Vol] 358 10*3/uL Normal 150-400 [facility] Comment on above: Order Comment: Speci men Type: BLOOD SPECIMENOrdering Facility: [facility] Address: [address] [place] [address] Performed By: #### 5 8410-2 ####[facility]ORATORYCLIA [id number] [address] RBC (Bld) [#/Vol] 3.47 10*6/uL Low 4.20-6.00 [facility] Comment on above: Order Comment: Speci men Type: BLOOD SPECIMENOrdering Facility: [facility] Address: [address] [place] [address] Performed By: #### 5 8410-2 ####[facility]ORATORYCLIA [id number] [place] [address] [place] WBC (Bld) [#/Vol] 10.07 10*3/uL Normal 3.70-11.00 [facility] Comment on above: Order Comment: Speci men Type: BLOOD SPECIMENOrdering Facility: [facility] Address: [address] [place] [address] Performed By: #### 5 8410-2 ####[facility]ORATORYCLIA [id number] [place] [address] [place] Magnesium SerPl-ncon 06-24 Magnesium [Mass/Vol] 2.3 mg/dL Normal 1.7-2.3 [facility] Comment on above: Order Comment: Speci men Type: BLOOD SPECIMENOrdering Facility: [facility] Address: [address] [place] [address] Performed By: #### 1 9123-9, 07319-7 ####[facility]ORATORYCLIA [id number] [place] [address] [place] ALLIED HEALTHon 06-23-2021 ALLIED HEALTH Normal [facility] Basic metabolic 2000 panelon 06-23-2021 Anion gap [Moles/Vol] 9 mmol/L Normal -18 [facility] Comment on above: Order Comment: Speci men Type: BLOOD SPECIMENOrdering Facility: [facility] Address: [address] [place] [address] Performed By: #### 1 9123-9, 53897-0 ####[facility]ORATORYCLIA [id number] [place] [address] [place] Calcium [Mass/Vol] 8.4 mg/dL Low 8.5-10.2 [facility] Comment on above: Order Comment: Speci men Type: BLOOD SPECIMENOrdering Facility: [facility] Address: [address] [place] [address] Performed By: #### 1 9123-9, 37214-6 ####[facility]ORATORYCLIA [id number] [place] [address] [place] Chloride [Moles/Vol] 104 mmol/L Normal 97-105 [facility] Comment on above: Order Comment: Speci men Type: BLOOD SPECIMENOrdering Facility: [facility] Address: [address] [place] [address] Performed By: #### 1 9123-9, 47362-5 ####[facility]ORATORYCLIA [id number] [place] [address] [place] CO2 [Moles/Vol] 26 mmol/L Normal 22-30 [facility] Comment on above: Order Comment: Speci men Type: BLOOD SPECIMENOrdering Facility: [facility] Address: [address] [place] [address] Performed By: #### 1 9123-9, 49367-3 ####[facility]ORATORYCLIA [id number] [place] [address] [place] Creatinine [Mass/Vol] 0.62 mg/dL Low 0.73-1.22 [facility] Comment on above: Order Comment: Speci men Type: BLOOD SPECIMENOrdering Facility: [facility] Address: [address] [place] [address] Performed By: #### 1 9123-9, 35372-7 ####[facility]ORATORYCLIA [id number] [place] [address] [place] GFR/1.73 sq M.predicted MDRD (S/P/Bld) [Vol rate/Area] mL/min/{1.73_m2} Normal [facility] Comment on above: Order Comment: Speci men Type: BLOOD SPECIMENOrdering Facility: [facility] Address: [address] [place] [address] Result Comment: >60e GFR (Estimated GFR) Units [...] actual GFR. Performed By: #### 1 9123-9, 46739-1 ####[facility]ORATORYCLIA [id number] [place] [address] [place] Glucose [Mass/Vol] 111 mg/dL High 74-99 [facility] Comment on above: Order Comment: Shira feldman Type: BLOOD SPECIMENOrdering Facility: [facility] Address: [address] [place], [place] [phone] Result Comment: The [place] Diabetes Association (ADA) provides guidance for cutoff [...] Standards of Medical Care in Diabetes 2016, [place] [employer]. Diabetes Care. 2016.39(Suppl 1). Performed By: #### 1 9123-9, 89073-4 ####[facility]ORATORYCLIA [id number] [place] [address] [place] Potassium [Moles/Vol] 4.1 mmol/L Normal 3.7-5.1 [facility] Comment on above: Order Comment: Shira feldman Type: BLOOD SPECIMENOrdering Facility: [facility] Address: [address] [place], [place] [phone] Performed By: #### 1 9123-9, 91980-0 ####[facility]ORATORYCLIA [id number] [address] STATES OF [facility] Sodium [Moles/Vol] 139 mmol/L Normal 136-144 [facility] Comment on above: Order Comment: Speci men Type: BLOOD SPECIMENOrdering Facility: [facility] Address: [address] [place] [address] Performed By: #### 1 9123-9, 74555-8 ####[facility]ORATORYCLIA [id number] [address] [place] Urea nitrogen [Mass/Vol] 26 mg/dL High 9-24 [facility] Comment on above: Order Comment: Speci men Type: BLOOD SPECIMENOrdering Facility: [facility] Address: [address] [place] [address] Performed By: #### 1 91239, 81590-2 ####[facility]ORATORYCLIA [id number] [address] CASE MANAGEMon 06-23-2021 CASE MANAGEM Normal [facility] CBC panel Auto (Bld)on 06-23 Erythrocyte distribution width (RBC) [Ratio] 16.0 % High 11.5-15.0 [facility] Comment on above: Order Comment: Speci men Type: BLOOD SPECIMENOrdering Facility: [facility] Address: [address] [place] [address] Performed By: #### 5 8410-2 ####[facility]ORATORYCLIA [id number] [address] STATES [facility] Hematocrit (Bld) [Volume fraction] 31.1 % Low 39.0-51.0 [facility] Comment on above: Order Comment: Speci men Type: BLOOD SPECIMENOrdering Facility: [facility] Address: [address] [place] [address] Performed By: #### 5 8410-2 ####[facility]ORATORYCLIA [id number] [address] Hemoglobin (Bld) [Mass/Vol] 9.5 g/dL Low 13.0-17.0 [facility] Comment on above: Order Comment: Speci men Type: BLOOD SPECIMENOrdering Facility: [facility] Address: [address] [place] [address] Performed By: #### 5 8410-2 ####[facility]ORATORYCLIA [id number] [address] MCH (RBC) [Entitic mass] 28.1 pg Normal 26.0-34.0 [facility] Comment on above: Order Comment: Speci men Type: BLOOD SPECIMENOrdering Facility: [facility] Address: [address] [place] [address] Performed By: #### 5 8410-2 ####[facility]ORATORYCLIA [id number] [address] STATES OF [facility] MCHC (RBC) [Mass/Vol] 30.5 g/dL Normal 30.5-36.0 [facility] Comment on above: Order Comment: Speci men Type: BLOOD SPECIMENOrdering Facility: [facility] Address: [address] [place] [address] Performed By: #### 5 8410-2 ####[facility]ORATORYCLIA [id number] [address] MCV (RBC) [Entitic vol] 92.0 fL Normal 80.0-100.0 [facility] Comment on above: Order Comment: Speci men Type: BLOOD SPECIMENOrdering Facility: [facility] Address: [address] [place] [address] Performed By: #### 5 8410-2 ####[facility]ORATORYCLIA [id number] [address] Nucleated RBC (Bld) [#/Vol] 10*3/uL Normal <0.01 [facility] Comment on above: Order Comment: Speci men Type: BLOOD SPECIMENOrdering Facility: [facility] Address: [address] [place] [address] Performed By: #### 5 8410-2 ####[facility]ORATORYCLIA [id number] [address] Platelet mean volume (Bld) [Entitic vol] 11.0 fL Normal 9.0-12.7 [facility] Comment on above: Order Comment: Speci men Type: BLOOD SPECIMENOrdering Facility: [facility] Address: [address] [place] [address] Performed By: #### 5 8410-2 ####[facility]ORATORYCLIA [id number] [address] [place] Platelets (Bld) [#/Vol] 361 10*3/uL Normal 150-400 [facility] Comment on above: Order Comment: Speci men Type: BLOOD SPECIMENOrdering Facility: [facility] Address: [address] [place] [address] Performed By: #### 5 8410-2 ####[facility]ORATORYCLIA [id number] [address] [place] RBC (Bld) [#/Vol] 3.38 10*6/uL Low 4.20-6.00 [facility] Comment on above: Order Comment: Speci men Type: BLOOD SPECIMENOrdering Facility: [facility] Address: [address] [place] [address] Performed By: #### 5 8410-2 ####[facility]ORATORYCLIA [id number] [address] [place] WBC (Bld) [#/Vol] 9.02 10*3/uL Normal 3.70-11.00 [facility] Comment on above: Order Comment: Speci men Type: BLOOD SPECIMENOrdering Facility: [facility] Address: [address] [place] [address] Performed By: #### 5 8410-2 ####[facility]ORATORYCLIA [id number] [address] OF [facility] CONSULT PROGon 06-23-2021 CONSULT PROG Normal [facility] CONSULT PROG Normal [facility] Magnesium SerPl-mCncon 06-23 Magnesium [Mass/Vol] 2.4 mg/dL High 1.7-2.3 [facility] Comment on above: Order Comment: Speci men Type: BLOOD SPECIMENOrdering Facility: [facility] Address: [address] [place] [address] Performed By: #### 1 9123-9, 76298-6 ####[facility]ORATORYCLIA [id number] [address] [place] THERAPY NTon 06-23-2021 THERAPY NT Normal [facility] Vancomycin random [Mass/Vol] on 06-23-2021 Vancomycin [Mass/Vol] 22.8 ug/mL High 10.0-20.0 [facility] Comment on above: Order Comment: Speci men Type: BLOOD SPECIMENOrdering Facility: [facility] Address: [address] [place] [address] Result Comment: Refe rence ranges and high/low indicator flags are provided as general guidelines only. The treating physician must determine appropriate target levels/dosing based on the specific clinical situation. Performed By: #### 4 091-5 ####[facility]ORATORYCLIA [id number] [place] [address] [place] XR MOD BARIUM SWALLOW W SPEE Lore 06-23-2021 XR MOD BARIUM SWALLOW W SPEECH Normal [facility] Basic metabolic 2000 panelon 06-22-2021 Anion gap [Moles/Vol] 6 mmol/L Low 9-18 [facility] Comment on above: Order Comment: Speci men Type: BLOOD SPECIMENOrdering Facility: [facility] Address: [address] [place] [address] Performed By: #### 2 4321-2, 80765-5 ####[facility]ORATORYCLIA [id number] [address] [place] Calcium [Mass/Vol] 8.5 mg/dL Normal 8.5-10.2 [facility] Comment on above: Order Comment: Speci men Type: BLOOD SPECIMENOrdering Facility: [facility] Address: [facility] [address] [address] Performed By: #### 2 4320-2, ####[facility]ORATORYCLIA [id number] [place] [address] [place] Chloride [Moles/Vol] 105 mmol/L Normal 97-105 [facility] Comment on above: Order Comment: Speci men Type: BLOOD SPECIMENOrdering Facility: [facility] Address: [address] [place] [address] Performed By: #### 2 1-2, ####[facility]ORATORYCLIA [id number] [place] [address] [place] CO2 [Moles/Vol] 26 mmol/L Normal 22-30 [facility] Comment on above: Order Comment: Speci men Type: BLOOD SPECIMENOrdering Facility: [facility] Address: [address] [place] [address] Performed By: #### 2 2, ####[facility]ORATORYCLIA [id number] [place] [address] [place] Creatinine [Mass/Vol] 0.56 mg/dL Low 0.73-1.22 [facility] Comment on above: Order Comment: Speci men Type: BLOOD SPECIMENOrdering Facility: [facility] Address: [address] [place] [address] Performed By: #### 2 4320-2, ####[facility]ATORYCLIA [id number] [place] [address] [place] GFR/1.73 sq M.predicted MDRD (S/P/Bld) [Vol rate/Area] mL/min/{1.73_m2} Normal [facility] Comment on above: Order Comment: Speci men Type: BLOOD SPECIMENOrdering Facility: [facility] Address: [address] [place] [address] Result Comment: >60e GFR (Estimated GFR) Units [...] actual GFR. Performed By: #### 2 432-, ####[facility]ATORYCLIA [id number] [place] [address] [place] Glucose [Mass/Vol] 120 mg/dL High 74-99 [facility] Comment on above: Order Comment: Shira feldman Type: BLOOD SPECIMENOrdering Facility: [facility] Address: [address] [place], [place] [phone] Result Comment: The [place] Diabetes Association (ADA) provides guidance for cutoff [...] Standards of Medical Care in Diabetes 2016, [place] [employer]. Diabetes Care. 2016.39(Suppl 1). Performed By: #### 2 4320-06, ####[facility]ATORYCLIA [id number] [place] [id number] [place] Potassium [Moles/Vol] 4.0 mmol/L Normal 3.7-5.1 [facility] Comment on above: Order Comment: Shira feldman Type: BLOOD SPECIMENOrdering Facility: [facility] Address: [address] [place] [phone] Performed By: #### 2 4320-06, ####[facility]ORATORYCLIA [id number] [address] [place] Sodium [Moles/Vol] 137 mmol/L Normal 136-144 [facility] Comment on above: Order Comment: Speci men Type: BLOOD SPECIMENOrdering Facility: [facility] Address: [address] [place] [address] Performed By: #### 2 432-2, ####[facility]ATORYCLIA [id number] [address] [place] Urea nitrogen [Mass/Vol] 25 mg/dL High 9-24 [facility] Comment on above: Order Comment: Speci men Type: BLOOD SPECIMENOrdering Facility: [facility] Address: [address] [place] [address] Performed By: #### 2 43205-08, ####[facility]ATORYCLIA [id number] [address] [place] CASE MANAGEMon 06-22-2021 CASE MANAGEM Normal [facility] CBC panel Auto (Bld)on 06-22 Erythrocyte distribution width (RBC) [Ratio] 16.0 % High 11.5-15.0 [facility] Comment on above: Order Comment: Speci men Type: BLOOD SPECIMENOrdering Facility: [facility] Address: [address] [place] [address] Performed By: #### 5 8410-2 ####[facility]ORATORYCLIA [id number] [address] STATES OF [facility] Hematocrit (Bld) [Volume fraction] 30.5 % Low 39.0-51.0 [facility] Comment on above: Order Comment: Speci men Type: BLOOD SPECIMENOrdering Facility: [facility] Address: [address] [place] [address] Performed By: #### 5 8410-2 ####[facility]ATORYCLIA [id number] [address] [place] Hemoglobin (Bld) [Mass/Vol] 9.3 g/dL Low 13.0-17.0 [facility] Comment on above: Order Comment: Speci men Type: BLOOD SPECIMENOrdering Facility: [facility] Address: [address] [place] [address] Performed By: #### 5 8410-2 ####[facility]ATORYCLIA [id number] [address] MCH (RBC) [Entitic mass] 28.4 pg Normal 26.0-34.0 [facility] Comment on above: Order Comment: Speci men Type: BLOOD SPECIMENOrdering Facility: [facility] Address: [address] [place] [address] Performed By: #### 5 8410-2 ####[facility]ORATORYCLIA [id number] [address] STATES OF [facility] MCHC (RBC) [Mass/Vol] 30.5 g/dL Normal 30.5-36.0 [facility] Comment on above: Order Comment: Speci men Type: BLOOD SPECIMENOrdering Facility: [facility] Address: [address] [place] [address] Performed By: #### 5 8410-2 ####[facility]ORATORYCLIA [id number] [address] STATES [facility] MCV (RBC) [Entitic vol] 93.3 fL Normal 80.0-100.0 [facility] Comment on above: Order Comment: Speci men Type: BLOOD SPECIMENOrdering Facility: [facility] Address: [address] [place] [address] Performed By: #### 5 8410-2 ####[facility]ORATORYCLIA [id number] [address] Nucleated RBC (Bld) [#/Vol] 10*3/uL Normal <0.01 [facility] Comment on above: Order Comment: Speci men Type: BLOOD SPECIMENOrdering Facility: [facility] Address: [address] [place] [address] Performed By: #### 5 8410-2 ####[facility]ATORYCLIA [id number] [address] STATES [facility] Platelet mean volume (Bld) [Entitic vol] 11.5 fL Normal 9.0-12.7 [facility] Comment on above: Order Comment: Speci men Type: BLOOD SPECIMENOrdering Facility: [facility] Address: [address] [place] [address] Performed By: #### 5 8410-2 ####[facility]ORATORYCLIA [id number] [address] [place] Platelets (Bld) [#/Vol] 346 10*3/uL Normal 150-400 [facility] Comment on above: Order Comment: Speci men Type: BLOOD SPECIMENOrdering Facility: [facility] Address: [address] [place] [address] Performed By: #### 5 8410-2 ####[facility]ATORYCLIA [id number] [address] [place] RBC (Bld) [#/Vol] 3.27 10*6/uL Low 4.20-6.00 [facility] Comment on above: Order Comment: Speci men Type: BLOOD SPECIMENOrdering Facility: [facility] Address: [address] [place] [address] Performed By: #### 5 8410-2 ####[facility]ORATORYCLIA [id number] [place] [address] [place] WBC (Bld) [#/Vol] 9.44 10*3/uL Normal 3.70-11.00 [facility] Comment on above: Order Comment: Speci men Type: BLOOD SPECIMENOrdering Facility: [facility] Address: [address] [place] [address] Performed By: #### 5 8410-2 ####[facility]ATORYCLIA [id number] [address] [place] HEMOGLOBIN (HGB)on 2 Hemoglobin (Bld) [Mass/Vol] 9.7 g/dL Low 13.0-17.0 [facility] Comment on above: Order Comment: Speci men Type: BLOOD SPECIMENOrdering Facility: [facility] Address: [address] [place] [address] Performed By: #### H GB ####[facility]ORATORYCLIA [id number] [address] Magnesium SerPl-mCncon 06-22 Magnesium [Mass/Vol] 2.4 mg/dL High 1.7-2.3 [facility] Comment on above: Order Comment: Speci men Type: BLOOD SPECIMENOrdering Facility: [facility] Address: [address] [place] [address] Performed By: #### 2 4321-2, ####[facility]ATORYCLIA [id number] [address] THERAPY NTon 06-22-2021 THERAPY NT Normal [facility] THERAPY NT Normal [facility] aPTT PPPon 06-22-2021 aPTT Coag (PPP) [Time] 62.3 s High 23.0-32.4 [facility] Comment on above: Order Comment: Speci men Type: BLOOD SPECIMENOrdering Facility: [facility] Address: [address] [place] [address] Performed By: #### 1 4979-9 ####[facility]ORATORYCLIA [id number] [address] [place] ALLIED HEALTHon 06-21-2021 ALLIED HEALTH Normal [facility] Basic metabolic 2000 panelon 06-21-2021 Anion gap [Moles/Vol] 8 mmol/L Low 9-18 [facility] Comment on above: Order Comment: Speci men Type: BLOOD SPECIMENOrdering Facility: [facility] Address: [address] [place] [address] Performed By: #### 2 4321-2, ####[facility]ORATORYCLIA [id number] [place] [address] [place] Calcium [Mass/Vol] 8.2 mg/dL Low 8.5-10.2 [facility] Comment on above: Order Comment: Speci men Type: BLOOD SPECIMENOrdering Facility: [facility] Address: [address] [place] [address] Performed By: #### 2 4321-2, ####[facility]ATORYCLIA [id number] [place] [address] [place] Chloride [Moles/Vol] 108 mmol/L High 97-105 [facility] Comment on above: Order Comment: Speci men Type: BLOOD SPECIMENOrdering Facility: [facility] Address: [address] [place] [address] Performed By: #### 2 4321-2, ####[facility]ATORYCLIA [id number] [address] [place] CO2 [Moles/Vol] 24 mmol/L Normal 22-30 [facility] Comment on above: Order Comment: Speci men Type: BLOOD SPECIMENOrdering Facility: [facility] Address: [address] [place] [address] Performed By: #### 2 4320-2, ####[facility]ORATORYCLIA [id number] [place] [address] [place] Creatinine [Mass/Vol] 0.61 mg/dL Low 0.73-1.22 [facility] Comment on above: Order Comment: Speci men Type: BLOOD SPECIMENOrdering Facility: [facility] Address: [address] [place] [address] Performed By: #### 2 4320-2, ####[facility]ATORYCLIA [id number] [address] [place] GFR/1.73 sq M.predicted MDRD (S/P/Bld) [Vol rate/Area] mL/min/{1.73_m2} Normal [facility] Comment on above: Order Comment: Speci men Type: BLOOD SPECIMENOrdering Facility: [facility] Address: [address] [place], [place] [phone] Result Comment: >60e GFR (Estimated GFR) Units [...] actual GFR. Performed By: #### 2 4321-2, 97174-2 ####[facility]ATORYCLIA [id number] [place] [address] [place] Glucose [Mass/Vol] 211 mg/dL High 74-99 [facility] Comment on above: Order Comment: Shira feldman Type: BLOOD SPECIMENOrdering Facility: [facility] Address: [address] [place] [address] Result Comment: The [place] Diabetes Association (ADA) provides guidance for cutoff [...] Standards of Medical Care in Diabetes 2016, [place] [employer]. Diabetes Care. 2016.39(Suppl 1). Performed By: #### 2 4321-2, 27110-5 ####[facility]ATORYCLIA [id number] [place] [address] [place] Potassium [Moles/Vol] 4.3 mmol/L Normal 3.7-5.1 [facility] Comment on above: Order Comment: Speci men Type: BLOOD SPECIMENOrdering Facility: [facility] Address: [address] [place] [address] Performed By: #### 2 432-2, ####[facility]ORATORYCLIA [id number] [address] Sodium [Moles/Vol] 140 mmol/L Normal 136-144 [facility] Comment on above: Order Comment: Speci men Type: BLOOD SPECIMENOrdering Facility: [facility] Address: [address] [place] [address] Performed By: #### 2 432-2, ####[facility]ATORYCLIA [id number] [address] STATES [facility] Urea nitrogen [Mass/Vol] 26 mg/dL High 9-24 [facility] Comment on above: Order Comment: Speci men Type: BLOOD SPECIMENOrdering Facility: [facility] Address: [address] [place] [address] Performed By: #### 2 432-2, ####[facility]ATORYCLIA [id number] [address] STATES OF [facility] CBC panel Auto (Bld)on 06-21 Erythrocyte distribution width (RBC) [Ratio] 16.1 % High 11.5-15.0 [facility] Comment on above: Order Comment: Speci men Type: BLOOD SPECIMENOrdering Facility: [facility] Address: [address] [place] [address] Performed By: #### 5 8410-2 ####[facility]ATORYCLIA [id number] [address] Hematocrit (Bld) [Volume fraction] 29.7 % Low 39.0-51.0 [facility] Comment on above: Order Comment: Speci men Type: BLOOD SPECIMENOrdering Facility: [facility] Address: [address] [place] [address] Performed By: #### 5 8410-2 ####[facility]ATORYCLIA [id number] [address] OF [facility] Hemoglobin (Bld) [Mass/Vol] 9.2 g/dL Low 13.0-17.0 [facility] Comment on above: Order Comment: Speci men Type: BLOOD SPECIMENOrdering Facility: [facility] Address: [address] [place] [address] Performed By: #### 5 8410-2 ####[facility]ATORYCLIA [id number] [address] MCH (RBC) [Entitic mass] 28.8 pg Normal 26.0-34.0 [facility] Comment on above: Order Comment: Speci men Type: BLOOD SPECIMENOrdering Facility: [facility] Address: [address] [place] [address] Performed By: #### 5 8410-2 ####[facility]ATORYCLIA [id number] [address] MCHC (RBC) [Mass/Vol] 31.0 g/dL Normal 30.5-36.0 [facility] Comment on above: Order Comment: Speci men Type: BLOOD SPECIMENOrdering Facility: [facility] Address: [address] [place] [address] Performed By: #### 5 8410-2 ####[facility]ATORYCLIA [id number] [address] STATES [facility] MCV (RBC) [Entitic vol] 93.1 fL Normal 80.0-100.0 [facility] Comment on above: Order Comment: Speci men Type: BLOOD SPECIMENOrdering Facility: [facility] Address: [address] [place] [address] Performed By: #### 5 8410-2 ####[facility]ATORYCLIA [id number] [address] Nucleated RBC (Bld) [#/Vol] 10*3/uL Normal <0.01 [facility] Comment on above: Order Comment: Speci men Type: BLOOD SPECIMENOrdering Facility: [facility] Address: [address] [place] [address] Performed By: #### 5 8410-2 ####[facility]ATORYCLIA [id number] [address] Platelet mean volume (Bld) [Entitic vol] 11.6 fL Normal 9.0-12.7 [facility] Comment on above: Order Comment: Speci men Type: BLOOD SPECIMENOrdering Facility: [facility] Address: [address] [place] [address] Performed By: #### 5 8410-2 ####[facility]ATORYCLIA [id number] [address] [place] Platelets (Bld) [#/Vol] 347 10*3/uL Normal 150-400 [facility] Comment on above: Order Comment: Speci men Type: BLOOD SPECIMENOrdering Facility: [facility] Address: [address] [place] [address] Performed By: #### 5 8410-2 ####[facility]ATORYCLIA [id number] [address] [place] RBC (Bld) [#/Vol] 3.19 10*6/uL Low 4.20-6.00 [facility] Comment on above: Order Comment: Speci men Type: BLOOD SPECIMENOrdering Facility: [facility] Address: [address] [place] [address] Performed By: #### 5 8410-2 ####[facility]ATORYCLIA [id number] [address] [place] WBC (Bld) [#/Vol] 10.29 10*3/uL Normal 3.70-11.00 [facility] Comment on above: Order Comment: Speci men Type: BLOOD SPECIMENOrdering Facility: [facility] Address: [address] [place] [address] Performed By: #### 5 8410-2 ####[facility]ATORYCLIA [id number] [address] [place] CONSULT PROGon 06-21-2021 CONSULT PROG Normal [facility] CONSULT PROG Normal [facility] Magnesium SerPl-mCncon 06-21 Magnesium [Mass/Vol] 2.5 mg/dL High 1.7-2.3 [facility] Comment on above: Order Comment: Speci men Type: BLOOD SPECIMENOrdering Facility: [facility] Address: [address] [place] [address] Performed By: #### 2 4321-2, 36544-6 ####[facility]ORATORYCLIA [id number] [address] OF [facility] NUTRITIONon 06-21-2021 NUTRITION Normal [facility] XR CHEST 1V FRONTALon 2021 XR CHEST 1V FRONTAL Normal [facility] aPTT PPPon 06-21-2021 aPTT Coag (PPP) [Time] 68.5 s High 23.0-32.4 [facility] Comment on above: Order Comment: Speci men Type: BLOOD SPECIMENOrdering Facility: [facility] Address: [address] [place] [address] Performed By: #### 1 4979-9 ####[facility]ATORYCLIA [id number] [address] aPTT Coag (PPP) [Time] 57.8 s High 23.0-32.4 [facility] Comment on above: Order Comment: Speci men Type: BLOOD SPECIMENOrdering Facility: [facility] Address: [address] [place] [address] Performed By: #### 1 4979-9 ####[facility]ATORYCLIA [id number] [address] [place] Basic metabolic 2000 panelon 06-20-2021 Anion gap [Moles/Vol] 9 mmol/L Normal 9-18 [facility] Comment on above: Order Comment: Speci men Type: BLOOD SPECIMENOrdering Facility: [facility] Address: [address] [place] [address] Performed By: #### 2 4320-2, ####[facility]ORATORYCLIA [id number] [place] [address] [place] Calcium [Mass/Vol] 8.3 mg/dL Low 8.5-10.2 [facility] Comment on above: Order Comment: Speci men Type: BLOOD SPECIMENOrdering Facility: [facility] Address: [address] [place] [address] Performed By: #### 2 4320-2, ####[facility]ORATORYCLIA [id number] [place] [address] [place] Chloride [Moles/Vol] 111 mmol/L High 97-105 [facility] Comment on above: Order Comment: Speci men Type: BLOOD SPECIMENOrdering Facility: [facility] Address: [address] [place] [address] Performed By: #### 2 4320-06, ####[facility]ORATORYCLIA [id number] [place] [address] [place] CO2 [Moles/Vol] 24 mmol/L Normal 22-30 [facility] Comment on above: Order Comment: Speci men Type: BLOOD SPECIMENOrdering Facility: [facility] Address: [address] [place] [address] Performed By: #### 2 2, ####[facility]ORATORYCLIA [id number] [place] [address] [place] Creatinine [Mass/Vol] 0.64 mg/dL Low 0.73-1.22 [facility] Comment on above: Order Comment: Speci men Type: BLOOD SPECIMENOrdering Facility: [facility] Address: [address] [place] [address] Performed By: #### 2 2, ####[facility]ATORYCLIA [id number] [place] [address] [place] GFR/1.73 sq M.predicted MDRD (S/P/Bld) [Vol rate/Area] mL/min/{1.73_m2} Normal [facility] Comment on above: Order Comment: Shira feldman Type: BLOOD SPECIMENOrdering Facility: [facility] Address: [address] [place] [place] [id number] Result Comment: >60e GFR (Estimated GFR) Units [...] actual GFR. Performed By: #### 2 4321-2, 32257-1 ####[facility]ORATORYCLIA [id number] [place] [address] [place] Glucose [Mass/Vol] 114 mg/dL High 74-99 [facility] Comment on above: Order Comment: Johncara feldman Type: BLOOD SPECIMENOrdering Facility: [facility] Address: [address] [place], [place] [phone] Result Comment: The [place] Diabetes Association (ADA) provides guidance for cutoff [...] Standards of Medical Care in Diabetes 2016, [place] [employer]. Diabetes Care. 2016.39(Suppl 1). Performed By: #### 2 4321-2, 86701-4 ####[facility]ORATORYCLIA [id number] [place] [address] [place] Potassium [Moles/Vol] 4.1 mmol/L Normal 3.7-5.1 [facility] Comment on above: Order Comment: Speci men Type: BLOOD SPECIMENOrdering Facility: [facility] Address: [address] [place] [address] Performed By: #### 2 4321-2, ####[facility]ORATORYCLIA [id number] [address] [place] Sodium [Moles/Vol] 144 mmol/L Normal 136-144 [facility] Comment on above: Order Comment: Speci men Type: BLOOD SPECIMENOrdering Facility: [facility] Address: [address] [place] [address] Performed By: #### 2 4321-2, ####[facility]ORATORYCLIA [id number] [address] STATES OF [facility] Urea nitrogen [Mass/Vol] 27 mg/dL High 9-24 [facility] Comment on above: Order Comment: Speci men Type: BLOOD SPECIMENOrdering Facility: [facility] Address: [address] [place] [address] Performed By: #### 2 4321-2, ####[facility]ORATORYCLIA [id number] [address] [place] CASE MANAGEMon 06-20-2021 CASE MANAGEM Normal [facility] CBC panel Auto (Bld)on 06-20 Erythrocyte distribution width (RBC) [Ratio] 15.9 % High 11.5-15.0 [facility] Comment on above: Order Comment: Speci men Type: BLOOD SPECIMENOrdering Facility: [facility] Address: [address] [place] [address] Performed By: #### 5 8410-2 ####[facility]ORATORYCLIA [id number] [address] [place] Hematocrit (Bld) [Volume fraction] 31.0 % Low 39.0-51.0 [facility] Comment on above: Order Comment: Speci men Type: BLOOD SPECIMENOrdering Facility: [facility] Address: [address] [place] [address] Performed By: #### 5 8410-2 ####[facility]ORATORYCLIA [id number] [address] STATES OF [facility] Hemoglobin (Bld) [Mass/Vol] 9.2 g/dL Low 13.0-17.0 [facility] Comment on above: Order Comment: Speci men Type: BLOOD SPECIMENOrdering Facility: [facility] Address: [address] [place] [address] Performed By: #### 5 8410-2 ####[facility]ORATORYCLIA [id number] [address] STATES OF [facility] MCH (RBC) [Entitic mass] 27.4 pg Normal 26.0-34.0 [facility] Comment on above: Order Comment: Speci men Type: BLOOD SPECIMENOrdering Facility: [facility] Address: [address] [place] [address] Performed By: #### 5 8410-2 ####[facility]ORATORYCLIA [id number] [address] OF [facility] MCHC (RBC) [Mass/Vol] 29.7 g/dL Low 30.5-36.0 [facility] Comment on above: Order Comment: Speci men Type: BLOOD SPECIMENOrdering Facility: [facility] Address: [address] [place] [address] Performed By: #### 5 8410-2 ####[facility]ORATORYCLIA [id number] [address] [place] MCV (RBC) [Entitic vol] 92.3 fL Normal 80.0-100.0 [facility] Comment on above: Order Comment: Speci men Type: BLOOD SPECIMENOrdering Facility: [facility] Address: [address] [place] [address] Performed By: #### 5 8410-2 ####[facility]ORATORYCLIA [id number] [place] [address] [place] Nucleated RBC (Bld) [#/Vol] 10*3/uL Normal <0.01 [facility] Comment on above: Order Comment: Speci men Type: BLOOD SPECIMENOrdering Facility: [facility] Address: [address] [place] [address] Performed By: #### 5 8410-2 ####[facility]ORATORYCLIA [id number] [place] [address] [place] Platelet mean volume (Bld) [Entitic vol] 11.5 fL Normal 9.0-12.7 [facility] Comment on above: Order Comment: Speci men Type: BLOOD SPECIMENOrdering Facility: [facility] Address: [address] [place] [address] Performed By: #### 5 8410-2 ####[facility]ORATORYCLIA [id number] [address] [place] Platelets (Bld) [#/Vol] 343 10*3/uL Normal 150-400 [facility] Comment on above: Order Comment: Speci men Type: BLOOD SPECIMENOrdering Facility: [facility] Address: [address] [place] [address] Performed By: #### 5 8410-2 ####[facility]ORATORYCLIA [id number] [place] [address] [place] RBC (Bld) [#/Vol] 3.36 10*6/uL Low 4.20-6.00 [facility] Comment on above: Order Comment: Speci men Type: BLOOD SPECIMENOrdering Facility: [facility] Address: [address] [place] [address] Performed By: #### 5 8410-2 ####[facility]ORATORYCLIA [id number] [place] [address] [place] WBC (Bld) [#/Vol] 10.71 10*3/uL Normal 3.70-11.00 [facility] Comment on above: Order Comment: Speci men Type: BLOOD SPECIMENOrdering Facility: [facility] Address: [address] [place] [address] Performed By: #### 5 8410-2 ####[facility]ORATORYCLIA [id number] [address] CONSULT PROGon 06-20-2021 CONSULT PROG Normal [facility] HEMOGLOBIN (HGB)on Hemoglobin (Bld) [Mass/Vol] 9.7 g/dL Low 13.0-17.0 [facility] Comment on above: Order Comment: Speci men Type: BLOOD SPECIMENOrdering Facility: [facility] Address: [address] [place] [address] Performed By: #### H GB ####[facility]ORATORYCLIA [id number] [address] Magnesium SerPl-mCncon 06-20 Magnesium [Mass/Vol] 2.5 mg/dL High 1.7-2.3 [facility] Comment on above: Order Comment: Speci men Type: BLOOD SPECIMENOrdering Facility: [facility] Address: [address] [place] [address] Performed By: #### 2 4321-2, 02932-8 ####[facility]ORATORYCLIA [id number] [address] [place] NURSING PROGon 06-20-2021 NURSING PROG Normal [facility] THERAPY NTon 06-20-2021 THERAPY NT Normal [facility] aPTT PPPon 06-20-2021 aPTT Coag (PPP) [Time] 93.5 s High 23.0-32.4 [facility] Comment on above: Order Comment: Speci men Type: BLOOD SPECIMENOrdering Facility: [facility] Address: [address] [place] [address] Performed By: #### 1 4979-9 ####[facility]ATORYCLIA [id number] [address] aPTT Coag (PPP) [Time] 47.1 s High 23.0-32.4 [facility] Comment on above: Order Comment: Speci men Type: BLOOD SPECIMENOrdering Facility: [facility] Address: [address] [place] [address] Performed By: #### 1 4979-9 ####[facility]ORATORYCLIA [id number] [place] [address] [place] Basic metabolic 2000 panelon 06-19-2021 Anion gap [Moles/Vol] 7 mmol/L Low 9-18 [facility] Comment on above: Order Comment: Speci men Type: BLOOD SPECIMENOrdering Facility: [facility] Address: [address] [place] [address] Performed By: #### 2 4321-2 ####[facility]ORATORYCLIA [id number] [place] [address] [place] Calcium [Mass/Vol] 8.1 mg/dL Low 8.5-10.2 [facility] Comment on above: Order Comment: Speci men Type: BLOOD SPECIMENOrdering Facility: [facility] Address: [address] [place] [address] Performed By: #### 2 4321-2 ####[facility]ORATORYCLIA [id number] [address] [place] Chloride [Moles/Vol] 111 mmol/L High 97-105 [facility] Comment on above: Order Comment: Speci men Type: BLOOD SPECIMENOrdering Facility: [facility] Address: [address] [place] [address] Performed By: #### 2 4321-2 ####[facility]ORATORYCLIA [id number] [place] [address] [place] CO2 [Moles/Vol] 24 mmol/L Normal 22-30 [facility] Comment on above: Order Comment: Speci men Type: BLOOD SPECIMENOrdering Facility: [facility] Address: [address] [place] [address] Performed By: #### 2 4321-2 ####[facility]ORATORYCLIA [id number] [place] [id number] [place] Creatinine [Mass/Vol] 0.71 mg/dL Low 0.73-1.22 [facility] Comment on above: Order Comment: Johncara feldman Type: BLOOD SPECIMENOrdering Facility: [facility] Address: [address] [place], [place] [phone] Performed By: #### 2 4321-2 ####[facility]ORATORYCLIA [id number] [place] [id number] [place] GFR/1.73 sq M.predicted MDRD (S/P/Bld) [Vol rate/Area] mL/min/{1.73_m2} Normal [facility] Comment on above: Order Comment: Shira francia Type: BLOOD SPECIMENOrdering Facility: [facility] Address: [address] [place] [address] Result Comment: >60e GFR (Estimated GFR) Units [...] actual GFR. Performed By: #### 2 4321-2 ####[facility]ORATORYCLIA [id number] [address] [place] Glucose [Mass/Vol] 110 mg/dL High 74-99 [facility] Comment on above: Order Comment: Shira francia Type: BLOOD SPECIMENOrdering Facility: [facility] Address: [address] [phone] Result Comment: The [place] [employer] (ADA) provides guidance for cutoff [...] Standards of Medical Care in Diabetes 2016, [place] [employer]. Diabetes Care. 2016.39(Suppl 1). Performed By: #### 2 4321-2 ####[facility]ORATORYCLIA [id number] [address] OF [facility] Potassium [Moles/Vol] 3.7 mmol/L Normal 3.7-5.1 [facility] Comment on above: Order Comment: Speci men Type: BLOOD SPECIMENOrdering Facility: [facility] Address: [address] [place] [address] Performed By: #### 2 4321-2 ####[facility]ATORYCLIA [id number] [address] Sodium [Moles/Vol] 142 mmol/L Normal 136-144 [facility] Comment on above: Order Comment: Speci men Type: BLOOD SPECIMENOrdering Facility: [facility] Address: [address] [place] [address] Performed By: #### 2 4321-2 ####[facility]ATORYCLIA [id number] [address] Urea nitrogen [Mass/Vol] 26 mg/dL High 9-24 [facility] Comment on above: Order Comment: Speci men Type: BLOOD SPECIMENOrdering Facility: [facility] Address: [address] [place] [address] Performed By: #### 2 4321-2 ####[facility]ATORYCLIA [id number] [address] CBC panel Auto (Bld)on 06-19 Erythrocyte distribution width (RBC) [Ratio] 15.7 % High 11.5-15.0 [facility] Comment on above: Order Comment: Speci men Type: BLOOD SPECIMENOrdering Facility: [facility] Address: [address] [place] [address] Performed By: #### 5 8410-2 ####[facility]ATORYCLIA [id number] [address] Hematocrit (Bld) [Volume fraction] 30.9 % Low 39.0-51.0 [facility] Comment on above: Order Comment: Speci men Type: BLOOD SPECIMENOrdering Facility: [facility] Address: [address] [place] [address] Performed By: #### 5 8410-2 ####[facility]ORATORYCLIA [id number] [address] OF [facility] Hemoglobin (Bld) [Mass/Vol] 9.5 g/dL Low 13.0-17.0 [facility] Comment on above: Order Comment: Speci men Type: BLOOD SPECIMENOrdering Facility: [facility] Address: [address] [place] [address] Performed By: #### 5 8410-2 ####[facility]ORATORYCLIA [id number] [address] OF [facility] MCH (RBC) [Entitic mass] 28.4 pg Normal 26.0-34.0 [facility] Comment on above: Order Comment: Speci men Type: BLOOD SPECIMENOrdering Facility: [facility] Address: [address] [place] [address] Performed By: #### 5 8410-2 ####[facility]ORATORYCLIA [id number] [address] [place] MCHC (RBC) [Mass/Vol] 30.7 g/dL Normal 30.5-36.0 [facility] Comment on above: Order Comment: Speci men Type: BLOOD SPECIMENOrdering Facility: [facility] Address: [address] [place] [address] Performed By: #### 5 8410-2 ####[facility]ORATORYCLIA [id number] [address] MCV (RBC) [Entitic vol] 92.2 fL Normal 80.0-100.0 [facility] Comment on above: Order Comment: Speci men Type: BLOOD SPECIMENOrdering Facility: [facility] Address: [address] [place] [address] Performed By: #### 5 8410-2 ####[facility]ORATORYCLIA [id number] [address] Nucleated RBC (Bld) [#/Vol] 10*3/uL Normal <0.01 [facility] Comment on above: Order Comment: Speci men Type: BLOOD SPECIMENOrdering Facility: [facility] Address: [address] [place] [address] Performed By: #### 5 8410-2 ####[facility]ORATORYCLIA [id number] [address] Platelet mean volume (Bld) [Entitic vol] 11.7 fL Normal 9.0-12.7 [facility] Comment on above: Order Comment: Speci men Type: BLOOD SPECIMENOrdering Facility: [facility] Address: [address] [place] [address] Performed By: #### 5 8410-2 ####[facility]ORATORYCLIA [id number] [address] Platelets (Bld) [#/Vol] 323 10*3/uL Normal 150-400 [facility] Comment on above: Order Comment: Speci men Type: BLOOD SPECIMENOrdering Facility: [facility] Address: [address] [place] [address] Performed By: #### 5 8410-2 ####[facility]ORATORYCLIA [id number] [address] [place] RBC (Bld) [#/Vol] 3.35 10*6/uL Low 4.20-6.00 [facility] Comment on above: Order Comment: Speci men Type: BLOOD SPECIMENOrdering Facility: [facility] Address: [address] [place] [address] Performed By: #### 5 8410-2 ####[facility]ATORYCLIA [id number] [address] [place] WBC (Bld) [#/Vol] 9.53 10*3/uL Normal 3.70-11.00 [facility] Comment on above: Order Comment: Speci men Type: BLOOD SPECIMENOrdering Facility: [facility] Address: [address] [place] [address] Performed By: #### 5 8410-2 ####[facility]ORATORYCLIA [id number] [address] HEMOGLOBIN (HGB)on 2 Hemoglobin (Bld) [Mass/Vol] 9.7 g/dL Low 13.0-17.0 [facility] Comment on above: Order Comment: Speci men Type: BLOOD SPECIMENOrdering Facility: [facility] Address: [address] [place] [address] Performed By: #### H GB ####[facility]ORATORYCLIA [id number] [address] Magnesium SerPl-mCncon 06-19 Magnesium [Mass/Vol] 2.5 mg/dL High 1.7-2.3 [facility] Comment on above: Order Comment: Speci men Type: BLOOD SPECIMENOrdering Facility: [facility] Address: [address] [place] [address] Performed By: #### 1 9123-9, 2777-1 ####[facility]ORATORYCLIA [id number] [place] [address] [place] NURSING PROGon 06-19-2021 NURSING PROG Normal [facility] Phosphate SerPl-mCncon 06-19 Phosphate [Mass/Vol] 2.6 mg/dL Low 2.7-4.8 [facility] Comment on above: Order Comment: Speci men Type: BLOOD SPECIMENOrdering Facility: [facility] Address: [address] [place] [address] Performed By: #### 1 9123-9, 2777-1 ####[facility]ATORYCLIA [id number] [address] aPTT PPPon 06-19-2021 aPTT Coag (PPP) [Time] 61.9 s High 23.0-32.4 [facility] Comment on above: Order Comment: Speci men Type: BLOOD SPECIMENOrdering Facility: [facility] Address: [address] [place] [address] Performed By: #### 1 4979-9 ####[facility]ORATORYCLIA [id number] [address] aPTT Coag (PPP) [Time] 68.6 s High 23.0-32.4 [facility] Comment on above: Order Comment: Speci men Type: BLOOD SPECIMENOrdering Facility: [facility] Address: [address] [place] [address] Performed By: #### 1 4979-9 ####[facility]ATORYCLIA [id number] [address] aPTT Coag (PPP) [Time] 83.2 s High 23.0-32.4 [facility] Comment on above: Order Comment: Speci men Type: BLOOD SPECIMENOrdering Facility: [facility] Address: [address] [place] [address] Performed By: #### 1 4979-9 ####[facility]ORATORYCLIA [id number] [address] Basic metabolic 2000 panelon 06-18-2021 Anion gap [Moles/Vol] 7 mmol/L Low 9-18 [facility] Comment on above: Order Comment: Speci men Type: BLOOD SPECIMENOrdering Facility: [facility] Address: [address] [place] [address] Performed By: #### 2 4321-2, 61493-3, 2777-1 ####[facility]ORATORYCLIA [id number] [place] [address] [place] Calcium [Mass/Vol] 8.2 mg/dL Low 8.5-10.2 [facility] Comment on above: Order Comment: Speci men Type: BLOOD SPECIMENOrdering Facility: [facility] Address: [address] [place] [address] Performed By: #### 2 4321-2, , 2776-05 ####[facility]ORATORYCLIA [id number] [place] [address] [place] Chloride [Moles/Vol] 115 mmol/L High 97-105 [facility] Comment on above: Order Comment: Speci men Type: BLOOD SPECIMENOrdering Facility: [facility] Address: [address] [place] [address] Performed By: #### 2 4321-2, , 2776-05 ####[facility]ORATORYCLIA [id number] [place] [address] [place] CO2 [Moles/Vol] 23 mmol/L Normal 22-30 [facility] Comment on above: Order Comment: Speci men Type: BLOOD SPECIMENOrdering Facility: [facility] Address: [address] [place] [address] Performed By: #### 2 4321-2, , 2776-05 ####[facility]ORATORYCLIA [id number] [place] [address] [place] Creatinine [Mass/Vol] 0.70 mg/dL Low 0.73-1.22 [facility] Comment on above: Order Comment: Speci men Type: BLOOD SPECIMENOrdering Facility: [facility] Address: [address] [place] [address] Performed By: #### 2 4321-2, , 2776-05 ####[facility]ATORYCLIA [id number] [place] [address] [place] GFR/1.73 sq M.predicted MDRD (S/P/Bld) [Vol rate/Area] mL/min/{1.73_m2} Normal [facility] Comment on above: Order Comment: Shira feldman Type: BLOOD SPECIMENOrdering Facility: [facility] Address: [address] [phone] Result Comment: >60e GFR (Estimated GFR) Units [...] actual GFR. Performed By: #### 2 4321-2, 15168-1, 2777-1 ####[facility]ITALCLIA [id number] [address] STATES OF [facility] Glucose [Mass/Vol] 105 mg/dL High 74-99 [facility] Comment on above: Order Comment: Shira feldman Type: BLOOD SPECIMENOrdering Facility: [facility] Address: [address] [place] [phone] Result Comment: The [place] Diabetes [employer] (ADA) provides guidance for cutoff [...] Standards of Medical Care in Diabetes 2016, [place] [employer]. Diabetes Care. 2016.39(Suppl 1). Performed By: #### 2 4321-2, 01793-0, 2777-1 ####[facility]ORATORYCLIA [id number] [place] [id number] [place] Potassium [Moles/Vol] 4.1 mmol/L Normal 3.7-5.1 [facility] Comment on above: Order Comment: Speci men Type: BLOOD SPECIMENOrdering Facility: [facility] Address: [address] [place] [address] Performed By: #### 2 4321-2, 60610-7, 2776- ####[facility]ORATORYCLIA [id number] [address] [place] Sodium [Moles/Vol] 145 mmol/L High 136-144 [facility] Comment on above: Order Comment: Speci men Type: BLOOD SPECIMENOrdering Facility: [facility] Address: [address] [place] [address] Performed By: #### 2 4321-2, , 2776-05 ####[facility]ORATORYCLIA [id number] [address] STATES OF [facility] Urea nitrogen [Mass/Vol] 27 mg/dL High 9-24 [facility] Comment on above: Order Comment: Speci men Type: BLOOD SPECIMENOrdering Facility: [facility] Address: [address] [place] [address] Performed By: #### 2 4321-2, , 2776-05 ####[facility]ORATORYCLIA [id number] [address] [place] CALCIUM IONIZED Bon 06-18-19 22 Calcium.ionized (BldV) [Mass/Vol] 1.22 mmol/L Normal 1.08-1.30 [facility] Comment on above: Order Comment: Speci men Type: BLOOD SPECIMENOrdering Facility: [facility] Address: [address] [place] [address] Performed By: #### I [place] ####[facility]ATORYCLIA [id number] [address] [place] Calcium.ionized adjusted to pH 7.4 (Bld) [Moles/Vol] 1.23 mmol/L Normal 1.08-1.30 [facility] Comment on above: Order Comment: Speci men Type: BLOOD SPECIMENOrdering Facility: [facility] Address: [address] [place] [address] Performed By: #### I [place] ####[facility]ORATORYCLIA [id number] [address] STATES [facility] CBC panel Auto (Bld)on 06-18 Erythrocyte distribution width (RBC) [Ratio] 15.8 % High 11.5-15.0 [facility] Comment on above: Order Comment: Speci men Type: BLOOD SPECIMENOrdering Facility: [facility] Address: [address] [place] [address] Performed By: #### 5 8410-2 ####[facility]ORATORYCLIA [id number] [address] Hematocrit (Bld) [Volume fraction] 29.5 % Low 39.0-51.0 [facility] Comment on above: Order Comment: Speci men Type: BLOOD SPECIMENOrdering Facility: [facility] Address: [address] [place] [address] Performed By: #### 5 8410-2 ####[facility]ORATORYCLIA [id number] [address] Hemoglobin (Bld) [Mass/Vol] 8.8 g/dL Low 13.0-17.0 [facility] Comment on above: Order Comment: Speci men Type: BLOOD SPECIMENOrdering Facility: [facility] Address: [address] [place] [address] Performed By: #### 5 8410-2 ####[facility]ORATORYCLIA [id number] [address] MCH (RBC) [Entitic mass] 27.4 pg Normal 26.0-34.0 [facility] Comment on above: Order Comment: Speci men Type: BLOOD SPECIMENOrdering Facility: [facility] Address: [address] [place] [address] Performed By: #### 5 8410-2 ####[facility]ORATORYCLIA [id number] [address] STATES [facility] MCHC (RBC) [Mass/Vol] 29.8 g/dL Low 30.5-36.0 [facility] Comment on above: Order Comment: Speci men Type: BLOOD SPECIMENOrdering Facility: [facility] Address: [address] [place] [address] Performed By: #### 5 8410-2 ####[facility]ORATORYCLIA [id number] [address] [place] MCV (RBC) [Entitic vol] 91.9 fL Normal 80.0-100.0 [facility] Comment on above: Order Comment: Speci men Type: BLOOD SPECIMENOrdering Facility: [facility] Address: [address] [place] [address] Performed By: #### 5 8410-2 ####[facility]ORATORYCLIA [id number] [address] Nucleated RBC (Bld) [#/Vol] 10*3/uL Normal <0.01 [facility] Comment on above: Order Comment: Speci men Type: BLOOD SPECIMENOrdering Facility: [facility] Address: [address] [place] [address] Performed By: #### 5 8410-2 ####[facility]ORATORYCLIA [id number] [address] STATES [facility] Platelet mean volume (Bld) [Entitic vol] 11.9 fL Normal 9.0-12.7 [facility] Comment on above: Order Comment: Speci men Type: BLOOD SPECIMENOrdering Facility: [facility] Address: [address] [place] [address] Performed By: #### 5 8410-2 ####[facility]ORATORYCLIA [id number] [address] [place] Platelets (Bld) [#/Vol] 291 10*3/uL Normal 150-400 [facility] Comment on above: Order Comment: Speci men Type: BLOOD SPECIMENOrdering Facility: [facility] Address: [address] [place] [address] Performed By: #### 5 8410-2 ####[facility]ORATORYCLIA [id number] [address] STATES OF [facility] RBC (Bld) [#/Vol] 3.21 10*6/uL Low 4.20-6.00 [facility] Comment on above: Order Comment: Speci men Type: BLOOD SPECIMENOrdering Facility: [facility] Address: [address] [place] [address] Performed By: #### 5 8410-2 ####[facility]ORATORYCLIA [id number] [address] WBC (Bld) [#/Vol] 10.19 10*3/uL Normal 3.70-11.00 [facility] Comment on above: Order Comment: Speci men Type: BLOOD SPECIMENOrdering Facility: [facility] Address: [address] [place] [address] Performed By: #### 5 8410-2 ####[facility]ORATORYCLIA [id number] [address] OF [facility] FERRITIN BLDon 06-18-2021 Ferritin [Mass/Vol] 600.9 ng/mL High 30.3-565.7 [facility] Comment on above: Order Comment: Speci men Type: BLOOD SPECIMENOrdering Facility: [facility] Address: [address] [place] [address] Performed By: #### S ERFOL, IRON, FERR ####[facility]ORATORYCLIA [id number] [address] FOLATE SERUMon 06-18-2021 Folate [Mass/Vol] 14.3 ng/mL Normal >4.7 [facility] Comment on above: Order Comment: Speci men Type: BLOOD SPECIMENOrdering Facility: [facility] Address: [address] [place] [address] Performed By: #### S ERFOL, IRON, FERR ####[facility]ORATORYCLIA [id number] [address] [place] Gas and Carbon monoxide pane l (BldV)on 06-18-2021 Base excess Calc (BldV) [Moles/Vol] 0.5 mmol/L Normal 0-2 [facility] Comment on above: Order Comment: Speci men Type: VENOUS BLOOD SPECIMENOrdering Facility: [facility] Address: [address] [place] [address] Performed By: #### 2 4344-4 ####[facility]ORATORYCLIA [id number] [address] Body temperature 97.34 [degF] Normal [facility] Comment on above: Order Comment: Speci men Type: VENOUS BLOOD SPECIMENOrdering Facility: [facility] Address: [address] [place] [address] Performed By: #### 2 4344-4 ####[facility]ORATORYCLIA [id number] [address] [place] CALCIUM IONIZED, PH CORRECTED 1.26 mmol/L Normal 1.08-1.30 [facility] Comment on above: Order Comment: Speci men Type: VENOUS BLOOD SPECIMENOrdering Facility: [facility] Address: [address] [place] [address] Performed By: #### 2 4344-4 ####[facility]ORATORYCLIA [id number] [address] [place] Calcium.ionized (BldV) [Mass/Vol] 1.25 mmol/L Normal 1.08-1.30 [facility] Comment on above: Order Comment: Speci men Type: VENOUS BLOOD SPECIMENOrdering Facility: [facility] Address: [address] [place] [address] Performed By: #### 2 4344-4 ####[facility]ORATORYCLIA [id number] [address] [place] Carboxyhemoglobin (BldV) [Mass fraction] 1.5 % Normal 0.0-2.0 [facility] Comment on above: Order Comment: Speci men Type: VENOUS BLOOD SPECIMENOrdering Facility: [facility] Address: [address] [place] [address] Result Comment: Carb oxyhemoglobin Reference Range for Smokers: 2.0-8.0% Performed By: #### 2 4344-4 ####[facility]ORATORYCLIA [id number] [address] [place] CO2 (BldV) [Partial pressure] 38 mm[Hg] Low 42-55 [facility] Comment on above: Order Comment: Speci men Type: VENOUS BLOOD SPECIMENOrdering Facility: [facility] Address: [address] [place] [address] Performed By: #### 2 4344-4 ####[facility]ORATORYCLIA [id number] [address] [place] CO2 [Moles/Vol] 22.9 mmol/L Low 25-29 [facility] Comment on above: Order Comment: Speci men Type: VENOUS BLOOD SPECIMENOrdering Facility: [facility] Address: [address] [place] [address] Performed By: #### 2 4344-4 ####[address]ardsST[address] M[facility] LABORATORYCLIA [id number] [address] [place] CO2 adjusted to patient's actual temperature (BldV) [Partial pressure] 37 mmHg Low 42-55 [facility] Comment on above: Order Comment: Speci men Type: VENOUS BLOOD SPECIMENOrdering Facility: [facility] Address: [address] [place] [address] Performed By: #### 2 4344-4 ####[facility]ATORYCLIA [id number] [address] [place] Glucose [Mass/Vol] 103 mg/dL Normal 60-105 [facility] Comment on above: Order Comment: Speci men Type: VENOUS BLOOD SPECIMENOrdering Facility: [facility] Address: [address] [place] [address] Performed By: #### 2 4344-4 ####[facility]ORATORYCLIA [id number] [address] [place] HCO3 (Bld) [Moles/Vol] 24.4 mmol/L Normal 24-28 [facility] Comment on above: Order Comment: Speci men Type: VENOUS BLOOD SPECIMENOrdering Facility: [facility] Address: [address] [place] [address] Performed By: #### 2 4344-4 ####[facility] LABORATORYCLIA [id number] OF [facility] Hematocrit (Bld) [Volume fraction] 28.7 % Low 39.0-51.0 [facility] Comment on above: Order Comment: Speci men Type: VENOUS BLOOD SPECIMENOrdering Facility: [facility] Address: [address] [place] [address] Performed By: #### 2 4344-4 ####[facility] LABORATORYCLIA [id number] Hemoglobin (Bld) [Mass/Vol] 9.3 g/dL Low 13.0-17.0 [facility] Comment on above: Order Comment: Speci men Type: VENOUS BLOOD SPECIMENOrdering Facility: [facility] Address: [address] [place] [address] Performed By: #### 2 4344-4 ####[facility] LABORATORYCLIA [id number] [address] [place] Methemoglobin (Bld) [Mass fraction] % Normal 0.0-1.5 [facility] Comment on above: Order Comment: Speci men Type: VENOUS BLOOD SPECIMENOrdering Facility: [facility] Address: [address] [place] [address] Performed By: #### 2 4344-4 ####[facility]ATORYCLIA [id number] [address] [place] O2 THERAPY Ventilator Normal [facility] Comment on above: Order Comment: Speci men Type: VENOUS BLOOD SPECIMENOrdering Facility: [facility] Address: [address] [place] [address] Performed By: #### 2 4344-4 ####[facility] LABORATORYCLIA [id number] [address] [place] Oxygen (BldV) [Partial pressure] 37 mm[Hg] Normal 35-45 [facility] Comment on above: Order Comment: Speci men Type: VENOUS BLOOD SPECIMENOrdering Facility: [facility] Address: [address] [place] [address] Performed By: #### 2 4344-4 ####[facility]ATORYCLIA [id number] [address] Oxygen adjusted to patient's actual temperature (BldV) [Partial pressure] 35.1 mmHg Normal 35-45 [facility] Comment on above: Order Comment: Speci men Type: VENOUS BLOOD SPECIMENOrdering Facility: [facility] Address: [address] [place] [address] Performed By: #### 2 4344-4 ####[facility]ATORYCLIA [id number] [address] Oxygen saturation in Blood 67.1 % Normal 60-85 [facility] Comment on above: Order Comment: Speci men Type: VENOUS BLOOD SPECIMENOrdering Facility: [facility] Address: [address] [place] [address] Performed By: #### 2 4344-4 ####[facility]ORATORYCLIA [id number] [address] [place] Oxyhemoglobin (BldV) [Mass fraction] 66 % Normal 60-85 [facility] Comment on above: Order Comment: Speci men Type: VENOUS BLOOD SPECIMENOrdering Facility: [facility] Address: [address] [place] [address] Performed By: #### 2 4344-4 ####[facility] LABORATORYCLIA [id number] [address] [place] pH (BldV) 7.42 [pH] Normal 7.32-7.42 [facility] Comment on above: Order Comment: Speci men Type: VENOUS BLOOD SPECIMENOrdering Facility: [facility] Address: [address] [place] [address] Performed By: #### 2 4344-4 ####[facility]ATORYCLIA [id number] [address] [place] pH adjusted to patient's actual temperature (BldV) 7.43 High 7.32-7.42 [facility] Comment on above: Order Comment: Speci men Type: VENOUS BLOOD SPECIMENOrdering Facility: [facility] Address: [address] [place] [address] Performed By: #### 2 4344-4 ####[facility]ATORYCLIA [id number] [address] [place] Potassium [Moles/Vol] 4.0 mmol/L Normal 3.5-5.0 [facility] Comment on above: Order Comment: Speci men Type: VENOUS BLOOD SPECIMENOrdering Facility: [facility] Address: [address] [place] [address] Performed By: #### 2 4344-4 ####[facility]ATORYCLIA [id number] [address] [place] Sodium [Moles/Vol] 146 mmol/L High 136-144 [facility] Comment on above: Order Comment: Speci men Type: VENOUS BLOOD SPECIMENOrdering Facility: [facility] Address: [address] [place] [address] Performed By: #### 2 4344-4 ####[facility]ATORYCLIA [id number] [place] [address] [place] HEMOGLOBIN (HGB)on 2 Hemoglobin (Bld) [Mass/Vol] 9.2 g/dL Low 13.0-17.0 [facility] Comment on above: Order Comment: Speci men Type: BLOOD SPECIMENOrdering Facility: [facility] Address: [address] [address] Performed By: #### H GB ####[facility]ORATORYCLIA [id number] [address] [place] IRON + TIBCon 06-18-2021 Iron [Mass/Vol] 27 ug/dL Low 41-186 [facility] Comment on above: Order Comment: Speci men Type: BLOOD SPECIMENOrdering Facility: [facility] Address: [address] [place] [address] Performed By: #### S ERFOL, IRON, FERR ####[facility]ATORYCLIA [id number] [address] Iron binding capacity [Mass/Vol] 141 ug/dL Low 232-386 [facility] Comment on above: Order Comment: Speci men Type: BLOOD SPECIMENOrdering Facility: [facility] Address: [address] [place] [address] Performed By: #### S ERFOL, IRON, FERR ####[facility]ATORYCLIA [id number] [address] Iron saturation [Mass fraction] 19 % Normal 15-57 [facility] Comment on above: Order Comment: Speci men Type: BLOOD SPECIMENOrdering Facility: [facility] Address: [address] [place] [address] Performed By: #### S ERFOL, IRON, FERR ####[facility]ATORYCLIA [id number] [address] [place] Magnesium SerPl-mCncon 06-18 Magnesium [Mass/Vol] 2.5 mg/dL High 1.7-2.3 [facility] Comment on above: Order Comment: Speci men Type: BLOOD SPECIMENOrdering Facility: [facility] Address: [address] [place] [address] Performed By: #### 2 4321-2, 59566-1, 2777-1 ####[facility]ATORYCLIA [id number] [address] OF [facility] NURSING PROGon 06-18-2021 NURSING PROG Normal [facility] Phosphate SerPl-mCncon 06-18 Phosphate [Mass/Vol] 3.0 mg/dL Normal 2.7-4.8 [facility] Comment on above: Order Comment: Speci men Type: BLOOD SPECIMENOrdering Facility: [facility] Address: [address] [place] [address] Performed By: #### 2 4321-2, 09762-0, 2777-1 ####[facility]ATORYCLIA [id number] [address] THERAPY NTon 06-18-2021 THERAPY NT Normal [facility] aPTT PPPon 06-18-2021 aPTT Coag (PPP) [Time] 43.0 s High 23.0-32.4 [facility] Comment on above: Order Comment: Speci men Type: BLOOD SPECIMENOrdering Facility: [facility] Address: [address] [place] [address] Performed By: #### 1 4979-9 ####[facility]ATORYCLIA [id number] [address] aPTT Coag (PPP) [Time] 60.6 s High 23.0-32.4 [facility] Comment on above: Order Comment: Speci men Type: BLOOD SPECIMENOrdering Facility: [facility] Address: [address] [place] [address] Performed By: #### 1 4979-9 ####[facility]ATORYCLIA [id number] [address] aPTT Coag (PPP) [Time] 46.4 s High 23.0-32.4 [facility] Comment on above: Order Comment: Speci men Type: BLOOD SPECIMENOrdering Facility: [facility] Address: [address] [place] [address] Performed By: #### 1 4979-9 ####[facility]ORATORYCLIA [id number] [place] [address] [place] Basic metabolic 2000 panelon 06-17-2021 Anion gap [Moles/Vol] 7 mmol/L Low 9-18 [facility] Comment on above: Order Comment: Speci men Type: BLOOD SPECIMENOrdering Facility: [facility] Address: [address] [place] [address] Performed By: #### 2 951-2, 18992-7, 2776-05, 99715-7 ####[facility]ATORYCLIA [id number] [place] [address] [place] Calcium [Mass/Vol] 8.1 mg/dL Low 8.5-10.2 [facility] Comment on above: Order Comment: Speci men Type: BLOOD SPECIMENOrdering Facility: [facility] Address: [address] [place] [address] Performed By: #### 2 951-2, , 2776-05, 66980-0 ####[facility]ATORYCLIA [id number] [place] [address] [place] Chloride [Moles/Vol] 113 mmol/L High 97-105 [facility] Comment on above: Order Comment: Speci men Type: BLOOD SPECIMENOrdering Facility: [facility] Address: [address] [place] [address] Performed By: #### 2 951-2, , 2776-05, 80160-0 ####[facility]ATORYCLIA [id number] [place] [address] [place] CO2 [Moles/Vol] 25 mmol/L Normal 22-30 [facility] Comment on above: Order Comment: Speci men Type: BLOOD SPECIMENOrdering Facility: [facility] Address: [address] [place] [address] Performed By: #### 2 951-2, , 2776-05, 77260-4 ####[facility]ATORYCLIA [id number] [place] [address] [place] Creatinine [Mass/Vol] 0.70 mg/dL Low 0.73-1.22 [facility] Comment on above: Order Comment: Johncara feldman Type: BLOOD SPECIMENOrdering Facility: [facility] Address: [address] [id number] Performed By: #### 2 951-2, 43376-3, 2776-, 21198-7 ####[facility]ATORYCLIA [id number] [place] [address] [place] GFR/1.73 sq M.predicted MDRD (S/P/Bld) [Vol rate/Area] mL/min/{1.73_m2} Normal [facility] Comment on above: Order Comment: Johncara feldman Type: BLOOD SPECIMENOrdering Facility: [facility] Address: [address] [address] Result Comment: >60e GFR (Estimated GFR) Units [...] actual GFR. Performed By: #### 2 951-2, 84290-4, 2776-05, 85964-7 ####[facility]ORATORYIA [id number] [place] [address] [place] Glucose [Mass/Vol] 122 mg/dL High 74-99 [facility] Comment on above: Order Comment: Johncara feldman Type: BLOOD SPECIMENOrdering Facility: [facility] Address: [address] [phone] Result Comment: The [place] [employer] (ADA) provides guidance for cutoff [...] Standards of Medical Care in Diabetes 2016, [place] [employer]. Diabetes Care. 2016.39(Suppl 1). Performed By: #### 2 951-2, 18022-3, 2777-, 90920-1 ####[facility]ATORYCLIA [id number] [address] STATES OF [facility] Potassium [Moles/Vol] 3.5 mmol/L Low 3.7-5.1 [facility] Comment on above: Order Comment: Shira feldman Type: BLOOD SPECIMENOrdering Facility: [facility] Address: [address] [place] [address] Performed By: #### 2 951-2, , 27711-04, 36888-6 ####[facility] HOSPITALIA [id number] [address] [place] Urea nitrogen [Mass/Vol] 27 mg/dL High 9-24 [facility] Comment on above: Order Comment: Shira feldman Type: BLOOD SPECIMENOrdering Facility: [facility] Address: [address] [place] [address] Performed By: #### 2 951-2, 88084-8, 27711-04, 20277-4 ####[facility]ATORYCLIA [id number] [address] [place] CASE MANAGEMon 06-17-2021 CASE MANAGEM Normal [facility] CBC panel Auto (Bld)on 06-17 Erythrocyte distribution width (RBC) [Ratio] 15.9 % High 11.5-15.0 [facility] Comment on above: Order Comment: Shira feldman Type: BLOOD SPECIMENOrdering Facility: [facility] Address: [address] [place] [address] Performed By: #### 5 8410-2 ####[facility]ORATORYCLIA [id number] [address] Hematocrit (Bld) [Volume fraction] 28.9 % Low 39.0-51.0 [facility] Comment on above: Order Comment: Speci men Type: BLOOD SPECIMENOrdering Facility: [facility] Address: [address] [place] [address] Performed By: #### 5 8410-2 ####[facility]ATORYCLIA [id number] [address] Hemoglobin (Bld) [Mass/Vol] 8.8 g/dL Low 13.0-17.0 [facility] Comment on above: Order Comment: Speci men Type: BLOOD SPECIMENOrdering Facility: [facility] Address: [address] [place] [address] Performed By: #### 5 8410-2 ####[facility]ATORYCLIA [id number] [address] MCH (RBC) [Entitic mass] 28.4 pg Normal 26.0-34.0 [facility] Comment on above: Order Comment: Speci men Type: BLOOD SPECIMENOrdering Facility: [facility] Address: [address] [place] [address] Performed By: #### 5 8410-2 ####[facility]ORATORYCLIA [id number] [address] [place] MCHC (RBC) [Mass/Vol] 30.4 g/dL Low 30.5-36.0 [facility] Comment on above: Order Comment: Speci men Type: BLOOD SPECIMENOrdering Facility: [facility] Address: [address] [place] [address] Performed By: #### 5 8410-2 ####[facility]ORATORYCLIA [id number] [address] OF [facility] MCV (RBC) [Entitic vol] 93.2 fL Normal 80.0-100.0 [facility] Comment on above: Order Comment: Speci men Type: BLOOD SPECIMENOrdering Facility: [facility] Address: [address] [place] [address] Performed By: #### 5 8410-2 ####[facility]ATORYCLIA [id number] [address] [place] Nucleated RBC (Bld) [#/Vol] 10*3/uL Normal <0.01 [facility] Comment on above: Order Comment: Speci men Type: BLOOD SPECIMENOrdering Facility: [facility] Address: [address] [place] [address] Performed By: #### 5 8410-2 ####[facility]ORATORYCLIA [id number] [place] [address] [place] Platelet mean volume (Bld) [Entitic vol] 11.9 fL Normal 9.0-12.7 [facility] Comment on above: Order Comment: Speci men Type: BLOOD SPECIMENOrdering Facility: [facility] Address: [address] [place] [address] Performed By: #### 5 8410-2 ####[facility]ORATORYCLIA [id number] [address] [place] Platelets (Bld) [#/Vol] 257 10*3/uL Normal 150-400 [facility] Comment on above: Order Comment: Speci men Type: BLOOD SPECIMENOrdering Facility: [facility] Address: [address] Performed By: #### 5 8410-2 ####[facility]ATORYCLIA [id number] [address] [place] RBC (Bld) [#/Vol] 3.10 10*6/uL Low 4.20-6.00 [facility] Comment on above: Order Comment: Speci men Type: BLOOD SPECIMENOrdering Facility: [facility] Address: [address] [place] [address] Performed By: #### 5 8410-2 ####[facility]ATORYCLIA [id number] [address] [place] WBC (Bld) [#/Vol] 10.54 10*3/uL Normal 3.70-11.00 [facility] Comment on above: Order Comment: Speci men Type: BLOOD SPECIMENOrdering Facility: [facility] Address: [address] [place] [address] Performed By: #### 5 8410-2 ####[facility]ORATORYCLIA [id number] [address] OF [facility] HEMOGLOBIN (HGB)on Hemoglobin (Bld) [Mass/Vol] 8.8 g/dL Low 13.0-17.0 [facility] Comment on above: Order Comment: Speci men Type: BLOOD SPECIMENOrdering Facility: [facility] Address: [address] [place] [address] Performed By: #### H GB ####[facility]ORATORYCLIA [id number] [address] Magnesium SerPl-mCncon 06-17 Magnesium [Mass/Vol] 2.5 mg/dL High 1.7-2.3 [facility] Comment on above: Order Comment: Speci men Type: BLOOD SPECIMENOrdering Facility: [facility] Address: [address] [place] [address] Performed By: #### 2 951-2, 16145-1, 2777-1, 80658-1 ####[facility]ATORYCLIA [id number] [address] [place] NURSING PROGon 06-17-2021 NURSING PROG Normal [facility] NURSING PROG Normal [facility] NURSING PROG Normal [facility] Phosphate SerPl-mCncon 06-17 Phosphate [Mass/Vol] 1.9 mg/dL Low 2.7-4.8 [facility] Comment on above: Order Comment: Speci men Type: BLOOD SPECIMENOrdering Facility: [facility] Address: [address] [place] [address] Performed By: #### 2 951-2, 91922-6, 2777-1, 22821-7 ####[facility]ATORYCLIA [id number] [address] STATES OF [facility] Sodium SerPl-sCncon 06-17-19 Sodium [Moles/Vol] 144 mmol/L Normal 136-144 [facility] Comment on above: Order Comment: Speci men Type: BLOOD SPECIMENOrdering Facility: [facility] Address: [address] [place] [address] Performed By: #### 2 951-2 ####[facility]ATORYCLIA [id number] [address] Sodium [Moles/Vol] 145 mmol/L High 136-144 [facility] Comment on above: Order Comment: Speci men Type: BLOOD SPECIMENOrdering Facility: [facility] Address: [address] [place] [address] Performed By: #### 2 951-2, 83766-4, 2777-1, 32236-7 ####[facility]ATORYCLIA [id number] [address] aPTT PPPon 06-17-2021 aPTT Coag (PPP) [Time] 55.8 s High 23.0-32.4 [facility] Comment on above: Order Comment: Speci men Type: BLOOD SPECIMENOrdering Facility: [facility] Address: [address] [place] [address] Performed By: #### 1 4979-9 ####[facility]ORATORYCLIA [id number] [address] ARTERIAL BLOOD GASESon 06-16 Base excess Calc (Bld) [Moles/Vol] 3 mmol/L High 0-2 [facility] Comment on above: Order Comment: Speci men Type: ARTERIAL BLOOD SPECIMENOrdering Facility: [facility] Address: [address] [place] [address] Performed By: #### A LLBG ####[facility]ORATORYCLIA [id number] [address] Body temperature 99.14 [degF] Normal [facility] Comment on above: Order Comment: Speci men Type: ARTERIAL BLOOD SPECIMENOrdering Facility: [facility] Address: [address] [place] [address] Performed By: #### A LLBG ####[facility]ORATORYCLIA [id number] [address] STATES OF [facility] CALCIUM IONIZED, PH CORRECTED 1.21 mmol/L Normal 1.08-1.30 [facility] Comment on above: Order Comment: Speci men Type: ARTERIAL BLOOD SPECIMENOrdering Facility: [facility] Address: [address] [place] [address] Performed By: #### A LLBG ####[facility]ORATORYCLIA [id number] [address] Calcium.ionized (BldV) [Mass/Vol] 1.17 mmol/L Normal 1.08-1.30 [facility] Comment on above: Order Comment: Speci men Type: ARTERIAL BLOOD SPECIMENOrdering Facility: [facility] Address: [address] [place] [address] Performed By: #### A LLBG ####[facility]ORATORYCLIA [id number] [address] Carboxyhemoglobin (BldA) [Mass fraction] 1.4 % Normal 0.0-2.0 [facility] Comment on above: Order Comment: Speci men Type: ARTERIAL BLOOD SPECIMENOrdering Facility: [facility] Address: [address] [place] [address] Result Comment: Carb oxyhemoglobin Reference Range for Smokers: 2.0-8.0% Performed By: #### A LLBG ####[facility]ORATORYCLIA [id number] [address] [place] CO2 (Bld) [Partial pressure] 38 mm Hg Normal 36-46 [facility] Comment on above: Order Comment: Speci men Type: ARTERIAL BLOOD SPECIMENOrdering Facility: [facility] Address: [address] [address] Performed By: #### A LLBG ####[facility]ORATORYCLIA [id number] [address] CO2 [Moles/Vol] 24.5 mmol/L Normal 22-28 [facility] Comment on above: Order Comment: Speci men Type: ARTERIAL BLOOD SPECIMENOrdering Facility: [facility] Address: [address] [place] [address] Performed By: #### A LLBG ####[facility]ORATORYCLIA [id number] [address] CO2 adjusted to patient's actual temperature (Bld) [Partial pressure] 38 mmHg Normal 36-46 [facility] Comment on above: Order Comment: Speci men Type: ARTERIAL BLOOD SPECIMENOrdering Facility: [facility] Address: [address] [place] [address] Performed By: #### A LLBG ####[facility]ORATORYCLIA [id number] [address] [place] Glucose [Mass/Vol] 147 mg/dL High 60-105 [facility] Comment on above: Order Comment: Speci men Type: ARTERIAL BLOOD SPECIMENOrdering Facility: [facility] Address: [address] [place] [address] Performed By: #### A LLBG ####[facility]ORATORYCLIA [id number] [address] [place] HCO3 (Bld) [Moles/Vol] 27 mmol/L High 22-26 [facility] Comment on above: Order Comment: Speci men Type: ARTERIAL BLOOD SPECIMENOrdering Facility: [facility] Address: [address] [place] [address] Performed By: #### A LLBG ####[facility]ORATORYCLIA [id number] [address] [place] Hematocrit (Bld) [Volume fraction] 31.8 % Low 39.0-51.0 [facility] Comment on above: Order Comment: Speci men Type: ARTERIAL BLOOD SPECIMENOrdering Facility: [facility] Address: [facility] [address] Performed By: #### A LLBG ####[facility]ORATORYCLIA [id number] [address] OF [facility] Hemoglobin (Bld) [Mass/Vol] 10.3 g/dL Low 13.0-17.0 [facility] Comment on above: Order Comment: Speci men Type: ARTERIAL BLOOD SPECIMENOrdering Facility: [facility] Address: [address] [place] [address] Performed By: #### A LLBG ####[facility]ORATORYCLIA [id number] [address] Methemoglobin (Bld) [Mass fraction] 1.0 % Normal 0.0-1.5 [facility] Comment on above: Order Comment: Speci men Type: ARTERIAL BLOOD SPECIMENOrdering Facility: [facility] Address: [address] [place] [address] Performed By: #### A LLBG ####[facility]ORATORYCLIA [id number] [address] O2 THERAPY Ventilator Normal [facility] Comment on above: Order Comment: Speci men Type: ARTERIAL BLOOD SPECIMENOrdering Facility: [facility] Address: [address] [place] [address] Performed By: #### A LLBG ####[facility]ORATORYCLIA [id number] [address] Oxygen (Bld) [Partial pressure] 78 mm Hg Low 85-95 [facility] Comment on above: Order Comment: Speci men Type: ARTERIAL BLOOD SPECIMENOrdering Facility: [facility] Address: [address] [place] [address] Performed By: #### A LLBG ####[facility]ORATORYCLIA [id number] [address] Oxygen adjusted to patient's actual temperature (Bld) [Partial pressure] 79.7 mmHg Low 85-95 [facility] Comment on above: Order Comment: Speci men Type: ARTERIAL BLOOD SPECIMENOrdering Facility: [facility] Address: [address] [place] [address] Performed By: #### A LLBG ####[facility]ORATORYCLIA [id number] [address] [place] OXYGEN SATURATION, ARTERIAL 96 % Normal 95-98 [facility] Comment on above: Order Comment: Speci men Type: ARTERIAL BLOOD SPECIMENOrdering Facility: [facility] Address: [address] [place] [address] Performed By: #### A LLBG ####[facility]ORATORYCLIA [id number] [address] Oxyhemoglobin (BldA) [Mass fraction] 94 % Low 95-98 [facility] Comment on above: Order Comment: Speci men Type: ARTERIAL BLOOD SPECIMENOrdering Facility: [facility] Address: [address] [place] [address] Performed By: #### A LLBG ####[facility] LABORATORYCLIA [id number] [address] STATES [facility] pH (Bld) 7.47 [pH] High 7.35-7.45 [facility] Comment on above: Order Comment: Speci men Type: ARTERIAL BLOOD SPECIMENOrdering Facility: [facility] Address: [address] [place] [address] Performed By: #### A LLBG ####[facility]ORATORYCLIA [id number] [address] STATES [facility] pH adjusted to patient's actual temperature (Bld) 7.46 High 7.35-7.45 [facility] Comment on above: Order Comment: Speci men Type: ARTERIAL BLOOD SPECIMENOrdering Facility: [facility] Address: [address] [place] [address] Performed By: #### A LLBG ####[facility] LABORATORYCLIA [id number] [place] [address] [place] Potassium [Moles/Vol] 3.7 mmol/L Normal 3.5-5.0 [facility] Comment on above: Order Comment: Speci men Type: ARTERIAL BLOOD SPECIMENOrdering Facility: [facility] Address: [address] [place] [address] Performed By: #### A LLBG ####[facility]ORATORYCLIA [id number] [place] [address] [place] Sodium [Moles/Vol] 155 mmol/L High 136-144 [facility] Comment on above: Order Comment: Speci men Type: ARTERIAL BLOOD SPECIMENOrdering Facility: [facility] Address: [address] [place] [address] Performed By: #### A LLBG ####[facility]ORATORYCLIA [id number] [place] [address] [place] Bacteria Spec Resp Culton Bacteria identified Respiratory culture Nom (Unsp spec) CULTURE, RESPIRATORY: Rare Normal respiratory chris present ORGANISM ID: 1 Few Yeast, not cryptococcus neoformans GRAM STAIN: No organisms seen Few Polymorphonuclear leukocytes Few Epithelial cells Abnormal [facility] Comment on above: Performed By: #### 3 2355-0 ####[facility]ATORYCLIA [id number] [place] [address] [place] Basic metabolic 2000 panelon 06-16-2021 Anion gap [Moles/Vol] 9 mmol/L Normal 9-18 [facility] Comment on above: Order Comment: Speci men Type: BLOOD SPECIMENOrdering Facility: [facility] Address: [address] [place] [address] Performed By: #### 2 4321-2 ####[facility]ATORYCLIA [id number] [place] [address] [place] Calcium [Mass/Vol] 8.4 mg/dL Low 8.5-10.2 [facility] Comment on above: Order Comment: Speci men Type: BLOOD SPECIMENOrdering Facility: [facility] Address: [address] [place] [address] Performed By: #### 2 4321-2 ####[facility]ATORYCLIA [id number] [place] [address] [place] Chloride [Moles/Vol] 120 mmol/L High 97-105 [facility] Comment on above: Order Comment: Speci men Type: BLOOD SPECIMENOrdering Facility: [facility] Address: [address] [place] [address] Performed By: #### 2 4321-2 ####[facility]ATORYCLIA [id number] [place] [address] [place] CO2 [Moles/Vol] 27 mmol/L Normal 22-30 [facility] Comment on above: Order Comment: Speci men Type: BLOOD SPECIMENOrdering Facility: [facility] Address: [address] [place] [address] Performed By: #### 2 4321-2 ####[facility]ORATORYCLIA [id number] [address] [place] Creatinine [Mass/Vol] 0.75 mg/dL Normal 0.73-1.22 [facility] Comment on above: Order Comment: Speci men Type: BLOOD SPECIMENOrdering Facility: [facility] Address: [address] [place] [address] Performed By: #### 2 4321-2 ####[facility]ATORYCLIA [id number] [place] [address] [place] GFR/1.73 sq M.predicted MDRD (S/P/Bld) [Vol rate/Area] mL/min/{1.73_m2} Normal [facility] Comment on above: Order Comment: Speci men Type: BLOOD SPECIMENOrdering Facility: [facility] Address: [address] [place] [address] Result Comment: >60e GFR (Estimated GFR) Units [...] actual GFR. Performed By: #### 2 4321-2 ####[facility]ATORYCLIA [id number] [place] [address] [place] Glucose [Mass/Vol] 160 mg/dL High 74-99 [facility] Comment on above: Order Comment: Speci men Type: BLOOD SPECIMENOrdering Facility: [facility] Address: [address] [place] [address] Result Comment: The [place] [employer] (ADA) provides guidance for cutoff [...] Standards of Medical Care in Diabetes 2016, [place] [employer]. Diabetes Care. 2016.39(Suppl 1). Performed By: #### 2 4321-2 ####[facility]ATORYCLIA [id number] [place] [address] [place] Potassium [Moles/Vol] 3.1 mmol/L Low 3.7-5.1 [facility] Comment on above: Order Comment: Shira feldman Type: BLOOD SPECIMENOrdering Facility: [facility] Address: [address] [id number] Performed By: #### 2 4321-2 ####[facility]ORATORYCLIA [id number] [place] [id number] [place] Sodium [Moles/Vol] 156 mmol/L High 136-144 [facility] Comment on above: Order Comment: Speci men Type: BLOOD SPECIMENOrdering Facility: [facility] Address: [address] [place] [address] Performed By: #### 2 4321-2 ####[facility]ATORYCLIA [id number] [place] [address] [place] Urea nitrogen [Mass/Vol] 33 mg/dL High 9-24 [facility] Comment on above: Order Comment: Speci men Type: BLOOD SPECIMENOrdering Facility: [facility] Address: [address] [place] [address] Performed By: #### 2 4321-2 ####[facility]ORATORYCLIA [id number] [address] [place] CASE MANAGEMon 06-16-2021 CASE MANAGEM Normal [facility] CBC panel Auto (Bld)on 06-16 Erythrocyte distribution width (RBC) [Ratio] 15.9 % High 11.5-15.0 [facility] Comment on above: Order Comment: Speci men Type: BLOOD SPECIMENOrdering Facility: [facility] Address: [address] [place] [address] Performed By: #### 5 8410-2 ####[facility]ATORYCLIA [id number] [address] [place] Hematocrit (Bld) [Volume fraction] 34.6 % Low 39.0-51.0 [facility] Comment on above: Order Comment: Speci men Type: BLOOD SPECIMENOrdering Facility: [facility] Address: [address] [place] [address] Performed By: #### 5 8410-2 ####[facility]ATORYCLIA [id number] [address] [place] Hemoglobin (Bld) [Mass/Vol] 10.2 g/dL Low 13.0-17.0 [facility] Comment on above: Order Comment: Speci men Type: BLOOD SPECIMENOrdering Facility: [facility] Address: [address] [place] [address] Performed By: #### 5 8410-2 ####[facility]ATORYCLIA [id number] [address] MCH (RBC) [Entitic mass] 28.5 pg Normal 26.0-34.0 [facility] Comment on above: Order Comment: Speci men Type: BLOOD SPECIMENOrdering Facility: [facility] Address: [address] [place] [address] Performed By: #### 5 8410-2 ####[facility]ATORYCLIA [id number] [address] MCHC (RBC) [Mass/Vol] 29.5 g/dL Low 30.5-36.0 [facility] Comment on above: Order Comment: Speci men Type: BLOOD SPECIMENOrdering Facility: [facility] Address: [address] [place] [address] Performed By: #### 5 8410-2 ####[facility]ATORYCLIA [id number] [address] MCV (RBC) [Entitic vol] 96.6 fL Normal 80.0-100.0 [facility] Comment on above: Order Comment: Speci men Type: BLOOD SPECIMENOrdering Facility: [facility] Address: [address] [place] [address] Performed By: #### 5 8410-2 ####[facility]ATORYCLIA [id number] [address] Nucleated RBC (Bld) [#/Vol] 10*3/uL Normal <0.01 [facility] Comment on above: Order Comment: Speci men Type: BLOOD SPECIMENOrdering Facility: [facility] Address: [address] [place] [address] Performed By: #### 5 8410-2 ####[facility]ORATORYCLIA [id number] [address] Platelet mean volume (Bld) [Entitic vol] 11.9 fL Normal 9.0-12.7 [facility] Comment on above: Order Comment: Speci men Type: BLOOD SPECIMENOrdering Facility: [facility] Address: [address] [place] [address] Performed By: #### 5 8410-2 ####[facility]ORATORYCLIA [id number] [address] OF [facility] Platelets (Bld) [#/Vol] 269 10*3/uL Normal 150-400 [facility] Comment on above: Order Comment: Speci men Type: BLOOD SPECIMENOrdering Facility: [facility] Address: [address] [place] [address] Performed By: #### 5 8410-2 ####[facility]ATORYCLIA [id number] [address] STATES OF [facility] RBC (Bld) [#/Vol] 3.58 10*6/uL Low 4.20-6.00 [facility] Comment on above: Order Comment: Speci men Type: BLOOD SPECIMENOrdering Facility: [facility] Address: [address] [place] [address] Performed By: #### 5 8410-2 ####[facility]ATORYCLIA [id number] [address] OF [facility] WBC (Bld) [#/Vol] 13.11 10*3/uL High 3.70-11.00 [facility] Comment on above: Order Comment: Speci men Type: BLOOD SPECIMENOrdering Facility: [facility] Address: [address] [place] [address] Performed By: #### 5 8410-2 ####[facility]ORATORYCLIA [id number] [address] [place] CONSULTon 06-16-2021 CONSULT Normal [facility] CONSULT PROGon 06-16-2021 CONSULT PROG Normal [facility] CT BRAIN WO IVCONon 06-16-[address] BRAIN WO IVCON Normal [facility] HEMOGLOBIN (HGB)on 2 Hemoglobin (Bld) [Mass/Vol] 8.9 g/dL Low 13.0-17.0 [facility] Comment on above: Order Comment: Speci men Type: BLOOD SPECIMENOrdering Facility: [facility] Address: [address] [place] [address] Performed By: #### H GB ####[facility]ATORYCLIA [id number] [address] STATES OF [facility] Hemoglobin (Bld) [Mass/Vol] 9.6 g/dL Low 13.0-17.0 [facility] Comment on above: Order Comment: Speci men Type: BLOOD SPECIMENOrdering Facility: [facility] Address: [address] [place] [address] Performed By: #### H GB ####[facility]ATORYCLIA [id number] [address] [place] Magnesium [facility]Pl[facility] Magnesium [Mass/Vol] 2.7 mg/dL High 1.7-2.3 [facility] Comment on above: Order Comment: Speci men Type: BLOOD SPECIMENOrdering Facility: [facility] Address: [address] [place] [address] Performed By: #### 1 9123-9 ####[facility]ATORYCLIA [id number] [address] [place] NURSING PROGon 06-16-2021 NURSING PROG Normal [facility] NUTRITIONon 06-16-2021 NUTRITION Normal [facility] Phosphate SerPl-mCncon 06-16 Phosphate [Mass/Vol] 1.4 mg/dL Low 2.7-4.8 [facility] Comment on above: Order Comment: Speci men Type: BLOOD SPECIMENOrdering Facility: [facility] Address: [address] [place] [address] Performed By: #### 2 777-1 ####[facility]ATORYCLIA [id number] [address] [place] STAPH AUREUS PCRon 2 S. aureus and MRSA panel MEGAN+probe (Nose) Normal Negative [facility] Comment on above: Order Comment: Speci men Type: SWAB OF INTERNAL NOSEOrdering Facility: [facility] Address: [address] [place] [address] Result Comment: Nega tive for Staphylococcus aureus by PCR.Negative for MRSA by PCR Performed By: #### S APCR ####[facility]ORATORYCLIA [id number] [place] [address] [place] Sodium SerPl-sCncon 06-16-19 Sodium [Moles/Vol] 150 mmol/L High 136-144 [facility] Comment on above: Order Comment: Speci men Type: BLOOD SPECIMENOrdering Facility: [facility] Address: [address] [place] [address] Performed By: #### 2 951-2 ####[facility]ATORYCLIA [id number] [place] [address] [place] Sodium [Moles/Vol] 153 mmol/L High 136-144 [facility] Comment on above: Order Comment: Speci men Type: BLOOD SPECIMENOrdering Facility: [facility] Address: [address] [place] [address] Performed By: #### 2 951-2 ####[facility]ATORYCLIA [id number] [place] [address] [place] Sodium [Moles/Vol] 158 mmol/L High 136-144 [facility] Comment on above: Order Comment: Speci men Type: BLOOD SPECIMENOrdering Facility: [facility] Address: [address] [place] [address] Performed By: #### 2 951-2 ####[facility]ATORYCLIA [id number] [place] [address] [place] aPTT PPPon 06-16-2021 aPTT Coag (PPP) [Time] 61.8 s High 23.0-32.4 [facility] Comment on above: Order Comment: Speci men Type: BLOOD SPECIMENOrdering Facility: [facility] Address: [address] [address] Performed By: #### 1 4979-9 ####[facility]ATORYCLIA [id number] [place] [address] [place] aPTT Coag (PPP) [Time] 57.6 s High 23.0-32.4 [facility] Comment on above: Order Comment: Speci men Type: BLOOD SPECIMENOrdering Facility: [facility] Address: [address] [place] [address] Performed By: #### 1 4979-9 ####[facility]ATORYCLIA [id number] [address] [place] ALLIED HEALTHon 06-15-2021 ALLIED HEALTH Normal [facility] ALLIED HEALTH Normal [facility] ALLIED HEALTH Normal [facility] ALLIED HEALTH Normal [facility] ARTERIAL BLOOD GASESon 06-15 Base excess Calc (Bld) [Moles/Vol] 3 mmol/L High 0-2 [facility] Comment on above: Order Comment: Speci men Type: ARTERIAL BLOOD SPECIMENOrdering Facility: [facility] Address: [address] [place] [address] Performed By: #### A LLBG ####[facility]ATORYCLIA [id number] [address] [place] Body temperature 99.5 [degF] Normal [facility] Comment on above: Order Comment: Speci men Type: ARTERIAL BLOOD SPECIMENOrdering Facility: [facility] Address: [address] [place] [address] Performed By: #### A LLBG ####[facility]ATORYCLIA [id number] [place] [address] [place] CALCIUM IONIZED, PH CORRECTED 1.34 mmol/L High 1.08-1.30 [facility] Comment on above: Order Comment: Speci men Type: ARTERIAL BLOOD SPECIMENOrdering Facility: [facility] Address: [address] [place] [address] Performed By: #### A LLBG ####[facility]ATORYCLIA [id number] [address] [place] Calcium.ionized (BldV) [Mass/Vol] 1.29 mmol/L Normal 1.08-1.30 [facility] Comment on above: Order Comment: Speci men Type: ARTERIAL BLOOD SPECIMENOrdering Facility: [facility] Address: [address] [place] [address] Performed By: #### A LLBG ####[facility]ATORYCLIA [id number] [address] [place] Carboxyhemoglobin (BldA) [Mass fraction] 1.3 % Normal 0.0-2.0 [facility] Comment on above: Order Comment: Speci men Type: ARTERIAL BLOOD SPECIMENOrdering Facility: [facility] Address: [address] [place] [address] Result Comment: Carb oxyhemoglobin Reference Range for Smokers: 2.0-8.0% Performed By: #### A LLBG ####[facility]ATORYCLIA [id number] [address] CO2 (Bld) [Partial pressure] 37 mm Hg Normal 36-46 [facility] Comment on above: Order Comment: Speci men Type: ARTERIAL BLOOD SPECIMENOrdering Facility: [facility] Address: [address] [place] [address] Performed By: #### A LLBG ####[facility]ORATORYCLIA [id number] [address] [place] CO2 [Moles/Vol] 24.6 mmol/L Normal 22-28 [facility] Comment on above: Order Comment: Speci men Type: ARTERIAL BLOOD SPECIMENOrdering Facility: [facility] Address: [address] [place] [address] Performed By: #### A LLBG ####[facility]ORATORYCLIA [id number] [address] [place] CO2 adjusted to patient's actual temperature (Bld) [Partial pressure] 38 mmHg Normal 36-46 [facility] Comment on above: Order Comment: Speci men Type: ARTERIAL BLOOD SPECIMENOrdering Facility: [facility] Address: [address] [place] [address] Performed By: #### A LLBG ####[facility]ORATORYCLIA [id number] [address] [place] FIO2 100 % Normal [facility] Comment on above: Order Comment: Speci men Type: ARTERIAL BLOOD SPECIMENOrdering Facility: [facility] Address: [address] [place] [address] Performed By: #### A LLBG ####[facility]ATORYCLIA [id number] [address] [place] Glucose [Mass/Vol] 159 mg/dL High 60-105 [facility] Comment on above: Order Comment: Speci men Type: ARTERIAL BLOOD SPECIMENOrdering Facility: [facility] Address: [address] [place] [address] Performed By: #### A LLBG ####[facility]ATORYCLIA [id number] [address] [place] HCO3 (Bld) [Moles/Vol] 27 mmol/L High 22-26 [facility] Comment on above: Order Comment: Speci men Type: ARTERIAL BLOOD SPECIMENOrdering Facility: [facility] Address: [address] [place] [address] Performed By: #### A LLBG ####[facility]ATORYCLIA [id number] [address] Hematocrit (Bld) [Volume fraction] 31.0 % Low 39.0-51.0 [facility] Comment on above: Order Comment: Speci men Type: ARTERIAL BLOOD SPECIMENOrdering Facility: [facility] Address: [address] [place] [address] Performed By: #### A LLBG ####[facility]ATORYCLIA [id number] [address] [place] Hemoglobin (Bld) [Mass/Vol] 10.0 g/dL Low 13.0-17.0 [facility] Comment on above: Order Comment: Speci men Type: ARTERIAL BLOOD SPECIMENOrdering Facility: [facility] Address: [facility] [address] Performed By: #### A LLBG ####[facility] LABORATORYCLIA [id number] [address] Methemoglobin (Bld) [Mass fraction] % Normal 0.0-1.5 [facility] Comment on above: Order Comment: Speci men Type: ARTERIAL BLOOD SPECIMENOrdering Facility: [facility] Address: [address] [place] [address] Performed By: #### A LLBG ####[facility]ORATORYCLIA [id number] [address] O2 THERAPY Ventilator Normal [facility] Comment on above: Order Comment: Speci men Type: ARTERIAL BLOOD SPECIMENOrdering Facility: [facility] Address: [address] [place] [address] Performed By: #### A LLBG ####[facility]ORATORYCLIA [id number] [address] Oxygen (Bld) [Partial pressure] 279 mm Hg High 85-95 [facility] Comment on above: Order Comment: Speci men Type: ARTERIAL BLOOD SPECIMENOrdering Facility: [facility] Address: [address] [address] Performed By: #### A LLBG ####[facility]ATORYCLIA [id number] [address] Oxygen adjusted to patient's actual temperature (Bld) [Partial pressure] 281 mmHg High 85-95 [facility] Comment on above: Order Comment: Speci men Type: ARTERIAL BLOOD SPECIMENOrdering Facility: [facility] Address: [address] [address] Performed By: #### A LLBG ####[facility] LABORATORYCLIA [id number] [address] [place] OXYGEN SATURATION, ARTERIAL 100 % High 95-98 [facility] Comment on above: Order Comment: Speci men Type: ARTERIAL BLOOD SPECIMENOrdering Facility: [facility] Address: [address] [place] [address] Performed By: #### A LLBG ####[facility]ATORYCLIA [id number] [address] [place] Oxyhemoglobin (BldA) [Mass fraction] 98 % Normal 95-98 [facility] Comment on above: Order Comment: Speci men Type: ARTERIAL BLOOD SPECIMENOrdering Facility: [facility] Address: [address] [place] [address] Performed By: #### A LLBG ####[facility]ORATORYCLIA [id number] [place] [address] [place] pH (Bld) 7.47 [pH] High 7.35-7.45 [facility] Comment on above: Order Comment: Speci men Type: ARTERIAL BLOOD SPECIMENOrdering Facility: [facility] Address: [address] [place] [address] Performed By: #### A LLBG ####[facility]ORATORYCLIA [id number] [address] [place] pH adjusted to patient's actual temperature (Bld) 7.46 High 7.35-7.45 [facility] Comment on above: Order Comment: Speci men Type: ARTERIAL BLOOD SPECIMENOrdering Facility: [facility] Address: [address] [place] [address] Performed By: #### A LLBG ####[facility]ORATORYCLIA [id number] [place] [address] [place] Potassium [Moles/Vol] 3.6 mmol/L Normal 3.5-5.0 [facility] Comment on above: Order Comment: Speci men Type: ARTERIAL BLOOD SPECIMENOrdering Facility: [facility] Address: [address] [place] [address] Performed By: #### A LLBG ####[facility] LABORATORYCLIA [id number] [place] [address] [place] Sodium [Moles/Vol] 162 mmol/L High 136-144 [facility] Comment on above: Order Comment: Speci men Type: ARTERIAL BLOOD SPECIMENOrdering Facility: [facility] Address: [address] [place] [address] Performed By: #### A LLBG ####[facility]ORATORYCLIA [id number] [place] [address] [place] Base excess Calc (Bld) [Moles/Vol] 4 mmol/L High 0-2 [facility] Comment on above: Order Comment: Speci men Type: ARTERIAL BLOOD SPECIMENOrdering Facility: [facility] Address: [address] [place] [address] Performed By: #### A LLBG ####[facility]ORATORYCLIA [id number] [address] STATES [facility] Body temperature 100.58 [degF] Normal [facility] Comment on above: Order Comment: Speci men Type: ARTERIAL BLOOD SPECIMENOrdering Facility: [facility] Address: [address] [place] [address] Performed By: #### A LLBG ####[facility]ORATORYCLIA [id number] [place] [address] [place] CALCIUM IONIZED, PH CORRECTED 1.34 mmol/L High 1.08-1.30 [facility] Comment on above: Order Comment: Speci men Type: ARTERIAL BLOOD SPECIMENOrdering Facility: [facility] Address: [address] [place] [address] Performed By: #### A LLBG ####[facility]ORATORYCLIA [id number] [address] [place] Calcium.ionized (BldV) [Mass/Vol] 1.33 mmol/L High 1.08-1.30 [facility] Comment on above: Order Comment: Speci men Type: ARTERIAL BLOOD SPECIMENOrdering Facility: [facility] Address: [address] [place] [address] Performed By: #### A LLBG ####[facility]ATORYCLIA [id number] [address] Carboxyhemoglobin (BldA) [Mass fraction] 1.5 % Normal 0.0-2.0 [facility] Comment on above: Order Comment: Speci men Type: ARTERIAL BLOOD SPECIMENOrdering Facility: [facility] Address: [address] [place] [address] Result Comment: Carb oxyhemoglobin Reference Range for Smokers: 2.0-8.0% Performed By: #### A LLBG ####[facility]ORATORYCLIA [id number] [address] CO2 (Bld) [Partial pressure] 46 mm Hg Normal 36-46 [facility] Comment on above: Order Comment: Speci men Type: ARTERIAL BLOOD SPECIMENOrdering Facility: [facility] Address: [address] [place] [address] Performed By: #### A LLBG ####[facility]ORATORYCLIA [id number] [address] [place] CO2 [Moles/Vol] 26.4 mmol/L Normal 22-28 [facility] Comment on above: Order Comment: Speci men Type: ARTERIAL BLOOD SPECIMENOrdering Facility: [facility] Address: [address] [place] [address] Performed By: #### A LLBG ####[facility]ATORYCLIA [id number] [address] [place] CO2 adjusted to patient's actual temperature (Bld) [Partial pressure] 48 mmHg High 36-46 [facility] Comment on above: Order Comment: Speci men Type: ARTERIAL BLOOD SPECIMENOrdering Facility: [facility] Address: [address] [place] [address] Performed By: #### A LLBG ####[facility]ORATORYCLIA [id number] [address] [place] FIO2 100 % Normal [facility] Comment on above: Order Comment: Speci men Type: ARTERIAL BLOOD SPECIMENOrdering Facility: [facility] Address: [address] [place] [address] Performed By: #### A LLBG ####[facility]ORATORYCLIA [id number] [address] [place] Glucose [Mass/Vol] 132 mg/dL High 60-105 [facility] Comment on above: Order Comment: Speci men Type: ARTERIAL BLOOD SPECIMENOrdering Facility: [facility] Address: [address] [place] [address] Performed By: #### A LLBG ####[facility]ORATORYCLIA [id number] [address] [place] HCO3 (Bld) [Moles/Vol] 29 mmol/L High 22-26 [facility] Comment on above: Order Comment: Speci men Type: ARTERIAL BLOOD SPECIMENOrdering Facility: [facility] Address: [address] [place] [address] Performed By: #### A LLBG ####[facility] LABORATORYCLIA [id number] [place] Hematocrit (Bld) [Volume fraction] 32.3 % Low 39.0-51.0 [facility] Comment on above: Order Comment: Speci men Type: ARTERIAL BLOOD SPECIMENOrdering Facility: [facility] Address: [address] [place] [address] Performed By: #### A LLBG ####[facility]ORATORYCLIA [id number] [address] [place] Hemoglobin (Bld) [Mass/Vol] 10.4 g/dL Low 13.0-17.0 [facility] Comment on above: Order Comment: Speci men Type: ARTERIAL BLOOD SPECIMENOrdering Facility: [facility] Address: [address] [place] [address] Performed By: #### A LLBG ####[facility]ORATORYCLIA [id number] [address] [place] Methemoglobin (Bld) [Mass fraction] % Normal 0.0-1.5 [facility] Comment on above: Order Comment: Speci men Type: ARTERIAL BLOOD SPECIMENOrdering Facility: [facility] Address: [address] [address] Performed By: #### A LLBG ####[facility]ORATORYCLIA [id number] [address] O2 THERAPY NR=Non-Rebreather Mask Normal [facility] Comment on above: Order Comment: Speci men Type: ARTERIAL BLOOD SPECIMENOrdering Facility: [facility] Address: [address] [address] Performed By: #### A LLBG ####[facility] LABORATORYCLIA [id number] [address] Oxygen (Bld) [Partial pressure] 130 mm Hg High 85-95 [facility] Comment on above: Order Comment: Speci men Type: ARTERIAL BLOOD SPECIMENOrdering Facility: [facility] Address: [address] [place] [address] Performed By: #### A LLBG ####[facility]ATORYCLIA [id number] [address] Oxygen adjusted to patient's actual temperature (Bld) [Partial pressure] 136 mmHg High 85-95 [facility] Comment on above: Order Comment: Speci men Type: ARTERIAL BLOOD SPECIMENOrdering Facility: [facility] Address: [address] [place] [address] Performed By: #### A LLBG ####[facility]ORATORYCLIA [id number] [address] [place] OXYGEN SATURATION, ARTERIAL 99 % High 95-98 [facility] Comment on above: Order Comment: Speci men Type: ARTERIAL BLOOD SPECIMENOrdering Facility: [facility] Address: [address] [address] Performed By: #### A LLBG ####[facility]ATORYCLIA [id number] [address] Oxyhemoglobin (BldA) [Mass fraction] 97 % Normal 95-98 [facility] Comment on above: Order Comment: Speci men Type: ARTERIAL BLOOD SPECIMENOrdering Facility: [facility] Address: [address] [place] [address] Performed By: #### A LLBG ####[facility]ATORYCLIA [id number] [address] [place] pH (Bld) 7.41 [pH] Normal 7.35-7.45 [facility] Comment on above: Order Comment: Speci men Type: ARTERIAL BLOOD SPECIMENOrdering Facility: [facility] Address: [address] [place] [address] Performed By: #### A LLBG ####[facility]ATORYCLIA [id number] [address] pH adjusted to patient's actual temperature (Bld) 7.40 Normal 7.35-7.45 [facility] Comment on above: Order Comment: Speci men Type: ARTERIAL BLOOD SPECIMENOrdering Facility: [facility] Address: [address] [place] [address] Performed By: #### A LLBG ####[facility]ATORYCLIA [id number] [address] [place] Potassium [Moles/Vol] 3.8 mmol/L Normal 3.5-5.0 [facility] Comment on above: Order Comment: Speci men Type: ARTERIAL BLOOD SPECIMENOrdering Facility: [facility] Address: [address] [place] [address] Performed By: #### A LLBG ####[facility]ATORYCLIA [id number] [address] [place] Sodium [Moles/Vol] 166 mmol/L High 136-144 [facility] Comment on above: Order Comment: Speci men Type: ARTERIAL BLOOD SPECIMENOrdering Facility: [facility] Address: [address] [place] [address] Performed By: #### A LLBG ####[facility]ORATORYCLIA [id number] [place], [place] [address] [place] [address] [place] Bacteria Bld Culton 06-15-19 Bacteria identified Cx Nom (Bld) CULTURE, BLOOD: No growth 5 days Normal [facility] Comment on above: Performed By: #### 6 00-7 ####[facility]ORATORYCLIA [id number] [address] [place] Basic metabolic 2000 panelon 06-15-2021 Anion gap [Moles/Vol] 9 mmol/L Normal 9-18 [facility] Comment on above: Order Comment: Speci men Type: BLOOD SPECIMEN Performed By: #### 2 4321-2, 2776-05, ####[facility]ATORYCLIA [id number] [address] [place] Calcium [Mass/Vol] 9.0 mg/dL Normal 8.5-10.2 [facility] Comment on above: Order Comment: Speci men Type: BLOOD SPECIMEN Performed By: #### 2 4321-2, 2776-05, ####[facility]ATORYCLIA [id number] [address] [place] Chloride [Moles/Vol] 125 mmol/L High 97-105 [facility] Comment on above: Order Comment: Speci men Type: BLOOD SPECIMEN Performed By: #### 2 4321-2, 2776-05, ####[facility]ORATORYCLIA [id number] [address] [place] CO2 [Moles/Vol] 29 mmol/L Normal 22-30 [facility] Comment on above: Order Comment: Speci men Type: BLOOD SPECIMEN Performed By: #### 2 4321-2, 2776-05, ####[facility]ORATORYCLIA [id number] [address] [place] Creatinine [Mass/Vol] 0.81 mg/dL Normal 0.73-1.22 [facility] Comment on above: Order Comment: Speci men Type: BLOOD SPECIMEN Performed By: #### 2 4321-2, 2777-1, ####[facility]PITALCLIA [id number] [address] [id number] [place] GFR/1.73 sq M.predicted MDRD (S/P/Bld) [Vol rate/Area] mL/min/{1.73_m2} Normal [facility] Comment on above: Order Comment: Speci men [...] GFR. Performed By: #### 2 4321-2, 2777-, ####[facility]KENAZ[facility] HOSPITALIA [id number] [address] [id number] [place] Glucose [Mass/Vol] 124 mg/dL High 74-99 [facility] Comment on above: Order Comment: Speci men Type: BLOOD SPECIMEN Result Comment: The [place] Diabetes Association (ADA) provides guidance for cutoff [...] Standards of Medical Care in Diabetes 2016, [place] [employer]. Diabetes Care. 2016.39(Suppl 1). Performed By: #### 2 4321-2, 2777-, ####[facility]ORATORYCLIA [id number] [place], [place] [address] [place] [address] STATES OF [facility] Potassium [Moles/Vol] 3.8 mmol/L Normal 3.7-5.1 [facility] Comment on above: Order Comment: Speci men Type: BLOOD SPECIMEN Performed By: #### 2 4321-2, 2776-, ####[facility]ORATORYCLIA [id number] [place], [place] [address] [place] [address] STATES [facility] Sodium [Moles/Vol] 163 mmol/L High 136-144 [facility] Comment on above: Order Comment: Speci men Type: BLOOD SPECIMEN Performed By: #### 2 4321-2, 2776-05, ####[facility]ATORYCLIA [id number] [address] STATES [facility] Urea nitrogen [Mass/Vol] 35 mg/dL High 9-24 [facility] Comment on above: Order Comment: Speci men Type: BLOOD SPECIMEN Performed By: #### 2 4321-2, 2776-05, ####[facility]ATORYCLIA [id number] [address] CBC panel Auto (Bld)on 06-15 Erythrocyte distribution width (RBC) [Ratio] 16.3 % High 11.5-15.0 [facility] Comment on above: Order Comment: Speci men Type: BLOOD SPECIMENOrdering Facility: [facility] Address: [address] [place] [address] Performed By: #### 5 8410-2 ####[facility]ORATORYCLIA [id number] [address] Hematocrit (Bld) [Volume fraction] 30.0 % Low 39.0-51.0 [facility] Comment on above: Order Comment: Speci men Type: BLOOD SPECIMENOrdering Facility: [facility] Address: [address] [place] [address] Performed By: #### 5 8410-2 ####[facility]ORATORYCLIA [id number] [address] STATES OF [facility] Hemoglobin (Bld) [Mass/Vol] 8.9 g/dL Low 13.0-17.0 [facility] Comment on above: Order Comment: Speci men Type: BLOOD SPECIMENOrdering Facility: [facility] Address: [address] [place] [address] Performed By: #### 5 8410-2 ####[facility]ORATORYCLIA [id number] [address] MCH (RBC) [Entitic mass] 28.7 pg Normal 26.0-34.0 [facility] Comment on above: Order Comment: Speci men Type: BLOOD SPECIMENOrdering Facility: [facility] Address: [address] [place] [address] Performed By: #### 5 8410-2 ####[facility]ORATORYCLIA [id number] [address] MCHC (RBC) [Mass/Vol] 29.7 g/dL Low 30.5-36.0 [facility] Comment on above: Order Comment: Speci men Type: BLOOD SPECIMENOrdering Facility: [facility] Address: [address] [place] [address] Performed By: #### 5 8410-2 ####[facility]ORATORYCLIA [id number] [address] OF [facility] MCV (RBC) [Entitic vol] 96.8 fL Normal 80.0-100.0 [facility] Comment on above: Order Comment: Speci men Type: BLOOD SPECIMENOrdering Facility: [facility] Address: [address] [place] [address] Performed By: #### 5 8410-2 ####[facility]ORATORYCLIA [id number] [address] OF [facility] Nucleated RBC (Bld) [#/Vol] 10*3/uL Normal <0.01 [facility] Comment on above: Order Comment: Speci men Type: BLOOD SPECIMENOrdering Facility: [facility] Address: [address] [place] [address] Performed By: #### 5 8410-2 ####[facility]ORATORYCLIA [id number] [address] Platelet mean volume (Bld) [Entitic vol] 12.3 fL Normal 9.0-12.7 [facility] Comment on above: Order Comment: Speci men Type: BLOOD SPECIMENOrdering Facility: [facility] Address: [address] [place] [address] Performed By: #### 5 8410-2 ####[facility]ORATORYCLIA [id number] [address] [place] Platelets (Bld) [#/Vol] 226 10*3/uL Normal 150-400 [facility] Comment on above: Order Comment: Speci men Type: BLOOD SPECIMENOrdering Facility: [facility] Address: [address] [place] [address] Performed By: #### 5 8410-2 ####[facility]ATORYCLIA [id number] [address] [place] RBC (Bld) [#/Vol] 3.10 10*6/uL Low 4.20-6.00 [facility] Comment on above: Order Comment: Speci men Type: BLOOD SPECIMENOrdering Facility: [facility] Address: [address] [place] [address] Performed By: #### 5 8410-2 ####[facility]ORATORYCLIA [id number] [address] [place] WBC (Bld) [#/Vol] 10.77 10*3/uL Normal 3.70-11.00 [facility] Comment on above: Order Comment: Speci men Type: BLOOD SPECIMENOrdering Facility: [facility] Address: [address] [place] [address] Performed By: #### 5 8410-2 ####[facility]ORATORYCLIA [id number] [address] Erythrocyte distribution width (RBC) [Ratio] 16.2 % High 11.5-15.0 [facility] Comment on above: Order Comment: Speci men Type: BLOOD SPECIMENOrdering Facility: [facility] Address: [address] [place] [address] Performed By: #### 5 8410-2 ####[facility]ATORYCLIA [id number] [address] Hematocrit (Bld) [Volume fraction] 34.8 % Low 39.0-51.0 [facility] Comment on above: Order Comment: Speci men Type: BLOOD SPECIMENOrdering Facility: [facility] Address: [address] [place] [address] Performed By: #### 5 8410-2 ####[facility]ORATORYIA [id number] [address] OF [facility] Hemoglobin (Bld) [Mass/Vol] 10.0 g/dL Low 13.0-17.0 [facility] Comment on above: Order Comment: Speci men Type: BLOOD SPECIMENOrdering Facility: [facility] Address: [address] [place] [address] Performed By: #### 5 8410-2 ####[facility]ORATORYCLIA [id number] [address] STATES [facility] MCH (RBC) [Entitic mass] 27.5 pg Normal 26.0-34.0 [facility] Comment on above: Order Comment: Speci men Type: BLOOD SPECIMENOrdering Facility: [facility] Address: [address] [place] [address] Performed By: #### 5 8410-2 ####[facility]ATORYCLIA [id number] [address] MCHC (RBC) [Mass/Vol] 28.7 g/dL Low 30.5-36.0 [facility] Comment on above: Order Comment: Speci men Type: BLOOD SPECIMENOrdering Facility: [facility] Address: [address] [address] Performed By: #### 5 8410-2 ####[facility]ATORYCLIA [id number] [address] MCV (RBC) [Entitic vol] 95.6 fL Normal 80.0-100.0 [facility] Comment on above: Order Comment: Speci men Type: BLOOD SPECIMENOrdering Facility: [facility] Address: [address] [place] [address] Performed By: #### 5 8410-2 ####[facility]ORATORYCLIA [id number] [address] Nucleated RBC (Bld) [#/Vol] 10*3/uL Normal <0.01 [facility] Comment on above: Order Comment: Speci men Type: BLOOD SPECIMENOrdering Facility: [facility] Address: [address] [place] [address] Performed By: #### 5 8410-2 ####[facility]ORATORYCLIA [id number] [address] STATES [facility] Platelet mean volume (Bld) [Entitic vol] 11.9 fL Normal 9.0-12.7 [facility] Comment on above: Order Comment: Speci men Type: BLOOD SPECIMENOrdering Facility: [facility] Address: [address] [place] [address] Performed By: #### 5 8410-2 ####[facility]ORATORYCLIA [id number] [address] Platelets (Bld) [#/Vol] 246 10*3/uL Normal 150-400 [facility] Comment on above: Order Comment: Speci men Type: BLOOD SPECIMENOrdering Facility: [facility] Address: [address] [place] [address] Performed By: #### 5 8410-2 ####[facility]ORATORYCLIA [id number] [place] [address] [place] RBC (Bld) [#/Vol] 3.64 10*6/uL Low 4.20-6.00 [facility] Comment on above: Order Comment: Speci men Type: BLOOD SPECIMENOrdering Facility: [facility] Address: [address] [place] [address] Performed By: #### 5 8410-2 ####[facility]ORATORYCLIA [id number] [address] OF [facility] WBC (Bld) [#/Vol] 11.45 10*3/uL High 3.70-11.00 [facility] Comment on above: Order Comment: Speci men Type: BLOOD SPECIMENOrdering Facility: [facility] Address: [address] [place] [address] Performed By: #### 5 8410-2 ####[facility]ORATORYCLIA [id number] [address] Erythrocyte distribution width (RBC) [Ratio] 15.9 % High 11.5-15.0 [facility] Comment on above: Order Comment: Speci men Type: BLOOD SPECIMEN Performed By: #### 5 8410-2 ####[facility]ATORYCLIA [id number] [address] Hematocrit (Bld) [Volume fraction] 35.8 % Low 39.0-51.0 [facility] Comment on above: Order Comment: Speci men Type: BLOOD SPECIMEN Performed By: #### 5 8410-2 ####[facility]ATORYCLIA [id number] [address] Hemoglobin (Bld) [Mass/Vol] 10.4 g/dL Low 13.0-17.0 [facility] Comment on above: Order Comment: Speci men Type: BLOOD SPECIMEN Performed By: #### 5 8410-2 ####[facility]ATORYCLIA [id number] [address] MCH (RBC) [Entitic mass] 28.0 pg Normal 26.0-34.0 [facility] Comment on above: Order Comment: Speci men Type: BLOOD SPECIMEN Performed By: #### 5 8410-2 ####[facility]ATORYCLIA [id number] [address] MCHC (RBC) [Mass/Vol] 29.1 g/dL Low 30.5-36.0 [facility] Comment on above: Order Comment: Speci men Type: BLOOD SPECIMEN Performed By: #### 5 8410-2 ####[facility]ATORYCLIA [id number] [address] MCV (RBC) [Entitic vol] 96.2 fL Normal 80.0-100.0 [facility] Comment on above: Order Comment: Speci men Type: BLOOD SPECIMEN Performed By: #### 5 8410-2 ####[facility]ATORYCLIA [id number] [address] Nucleated RBC (Bld) [#/Vol] 10*3/uL Normal <0.01 [facility] Comment on above: Order Comment: Speci men Type: BLOOD SPECIMEN Performed By: #### 5 8410-2 ####[facility]ATORYCLIA [id number] [address] Platelet mean volume (Bld) [Entitic vol] 11.6 fL Normal 9.0-12.7 [facility] Comment on above: Order Comment: Speci men Type: BLOOD SPECIMEN Performed By: #### 5 8410-2 ####[facility]ATORYCLIA [id number] [address] Platelets (Bld) [#/Vol] 265 10*3/uL Normal 150-400 [facility] Comment on above: Order Comment: Speci men Type: BLOOD SPECIMEN Performed By: #### 5 8410-2 ####[facility]ATORYCLIA [id number] [address] OF [facility] RBC (Bld) [#/Vol] 3.72 10*6/uL Low 4.20-6.00 [facility] Comment on above: Order Comment: Speci men Type: BLOOD SPECIMEN Performed By: #### 5 8410-2 ####[facility]ATORYCLIA [id number] [address] OF [facility] WBC (Bld) [#/Vol] 12.24 10*3/uL High 3.70-11.00 [facility] Comment on above: Order Comment: Speci men Type: BLOOD SPECIMEN Performed By: #### 5 8410-2 ####[facility]ORATORYCLIA [id number] [place] [id number] [facility] CONSULTon 06-15-2021 CONSULT Normal [facility] CONSULT Normal [facility] CONSULT Normal [facility] CT BRAIN WO IVCONon 06-15-19 CT BRAIN WO IVCON Normal [facility] CT CHEST W IVCON PEon 2021 CT CHEST W IVCON PE Invalid Interpretation Code [facility] Chloride Unsp time (U) [Mole s/Vol]on 06-15-2021 Chloride (U) [Moles/Vol] 28 mmol/L Normal 16-250 [facility] Comment on above: Order Comment: Speci men Type: URINE SPECIMENOrdering Facility: [facility] Address: [address] [place] [address] Performed By: #### U TPR, 75061-6, 08446-1, 47734-0 ####[facility]ATORYCLIA [id number] [address] OF [facility] Comprehensive metabolic 2000 panelon 06-15-2021 Albumin [Mass/Vol] 2.8 g/dL Low 3.9-4.9 [facility] Comment on above: Order Comment: Speci men Type: BLOOD SPECIMENOrdering Facility: [facility] Address: [address] [place] [address] Performed By: #### 2 4323-8 ####[facility]ORATORYCLIA [id number] [address] [place] ALP [Catalytic activity/Vol] 74 U/L Normal 38-113 [facility] Comment on above: Order Comment: Speci men Type: BLOOD SPECIMENOrdering Facility: [facility] Address: [address] [place] [address] Performed By: #### 2 4323-8 ####[facility]ORATORYCLIA [id number] [address] [place] ALT With P-5'-P [Catalytic activity/Vol] 50 U/L Normal 10-54 [facility] Comment on above: Order Comment: Speci men Type: BLOOD SPECIMENOrdering Facility: [facility] Address: [address] [place] [address] Performed By: #### 2 4323-8 ####[facility]ORATORYCLIA [id number] [address] OF [facility] Anion gap [Moles/Vol] 12 mmol/L Normal 9-18 [facility] Comment on above: Order Comment: Speci men Type: BLOOD SPECIMENOrdering Facility: [facility] Address: [address] [place] [address] Performed By: #### 2 4323-8 ####[facility]ATORYCLIA [id number] [address] AST With P-5'-P [Catalytic activity/Vol] 36 U/L Normal 14-40 [facility] Comment on above: Order Comment: Speci men Type: BLOOD SPECIMENOrdering Facility: [facility] Address: [address] [place] [address] Performed By: #### 2 4323-8 ####[facility]ORATORYCLIA [id number] [address] [place] Bilirubin [Mass/Vol] 0.5 mg/dL Normal 0.2-1.3 [facility] Comment on above: Order Comment: Speci men Type: BLOOD SPECIMENOrdering Facility: [facility] Address: [address] [place] [address] Performed By: #### 2 4323-8 ####[facility] LABORATORYCLIA [id number] [place] [address] [place] Calcium [Mass/Vol] 8.8 mg/dL Normal 8.5-10.2 [facility] Comment on above: Order Comment: Speci men Type: BLOOD SPECIMENOrdering Facility: [facility] Address: [address] [place] [address] Performed By: #### 2 4323-8 ####[facility]ORATORYCLIA [id number] [place] [address] [place] Chloride [Moles/Vol] 126 mmol/L High 97-105 [facility] Comment on above: Order Comment: Speci men Type: BLOOD SPECIMENOrdering Facility: [facility] Address: [address] [place] [address] Performed By: #### 2 4323-8 ####[facility]ORATORYCLIA [id number] [place] [address] [place] CO2 [Moles/Vol] 24 mmol/L Normal 22-30 [facility] Comment on above: Order Comment: Speci men Type: BLOOD SPECIMENOrdering Facility: [facility] Address: [address] [place] [address] Performed By: #### 2 4323-8 ####[facility]ORATORYCLIA [id number] [place] [address] [place] Creatinine [Mass/Vol] 0.84 mg/dL Normal 0.73-1.22 [facility] Comment on above: Order Comment: Speci men Type: BLOOD SPECIMENOrdering Facility: [facility] Address: [address] [place] [address] Performed By: #### 2 4323-8 ####[facility]ORATORYCLIA [id number] [place] [address] [place] GFR/1.73 sq M.predicted MDRD (S/P/Bld) [Vol rate/Area] mL/min/{1.73_m2} Normal [facility] Comment on above: Order Comment: Speci men Type: BLOOD SPECIMENOrdering Facility: [facility] Address: [address] [id number] Result Comment: >60e GFR (Estimated GFR) Units [...] actual GFR. Performed By: #### 2 4323-8 ####[facility]ORATORYCLIA [id number] [place] [address] [place] Glucose [Mass/Vol] 142 mg/dL High 74-99 [facility] Comment on above: Order Comment: Speccara feldman Type: BLOOD SPECIMENOrdering Facility: [facility] Address: [address] [place] [address] Result Comment: The [place] Diabetes [employer] (ADA) provides guidance for cutoff [...] Standards of Medical Care in Diabetes 2016, [place] [employer]. Diabetes Care. 2016.39(Suppl 1). Performed By: #### 2 4323-8 ####[facility]ORATORYCLIA [id number] [place] [address] [place] Potassium [Moles/Vol] 3.8 mmol/L Normal 3.7-5.1 [facility] Comment on above: Order Comment: Speccara feldman Type: BLOOD SPECIMENOrdering Facility: [facility] Address: [address] Performed By: #### 2 4323-8 ####[facility]ORATORYCLIA [id number] [place] [address] [place] Protein [Mass/Vol] 6.1 g/dL Low 6.3-8.0 [facility] Comment on above: Order Comment: Speci men Type: BLOOD SPECIMENOrdering Facility: [facility] Address: [address] [place] [address] Performed By: #### 2 4323-8 ####[facility]ORATORYCLIA [id number] [place] [address] [place] Sodium [Moles/Vol] 162 mmol/L High 136-144 [facility] Comment on above: Order Comment: Speci men Type: BLOOD SPECIMENOrdering Facility: [facility] Address: [address] [place] [address] Performed By: #### 2 4323-8 ####[facility]ORATORYCLIA [id number] [address] [place] Urea nitrogen [Mass/Vol] 33 mg/dL High 9-24 [facility] Comment on above: Order Comment: Speci men Type: BLOOD SPECIMENOrdering Facility: [facility] Address: [address] [place] [address] Performed By: #### 2 4323-8 ####[facility]ORATORYCLIA [id number] [address] [place] Creatinine Unsp time (U) [Ma ss/Vol]on 06-15-2021 Creatinine (U) [Mass/Vol] 87.0 mg/dL Normal 46.8-314.5 [facility] Comment on above: Order Comment: Speci men Type: URINE SPECIMENOrdering Facility: [facility] Address: [address] [place] [address] Performed By: #### U TPR, 56953-3, 18579-5, 65658-5 ####[facility]ORATORYCLIA [id number] [address] [address] HIGH SENSITIVITY TROPONIN To n 06-15-2021 HIGH SENSITIVITY TAMIKO 23 ng/L High <12 [facility] Comment on above: Order Comment: Shira feldman Type: BLOOD SPECIMENOrdering Facility: [facility] Address: [address] [place] [address] Result Comment: When assessing risk for acute [...] day MACE. Performed By: #### P ROCAL, 91448-9, HSTNT ####[facility]ITALCLIA [id number] [place] [address] [place] Lactate (Bld) [Moles/Vol]on 06-15-2021 Lactate [Moles/Vol] 0.8 mmol/L Normal 0.5-2.2 [facility] Comment on above: Order Comment: [facility] Type: BLOOD SPECIMENOrdering Facility: [facility] Address: [address] [place] [address] Performed By: #### 3 2693-4 ####[facility]ITALCLIA [id number] [place] [address] [place] [facility] Magnesium [Mass/Vol] 3.0 mg/dL High 1.7-2.3 [facility] Comment on above: Order Comment: Speci men Type: BLOOD SPECIMEN Performed By: #### 2 4321-2, 2777-1, 69663-9 ####[facility]ITALCLIA [id number] [place] [address] [place] NT-proBNP SerPl-mCncon 06-15 Natriuretic peptide.B prohormone N-Terminal [Mass/Vol] 265 pg/mL High <125 [facility] Comment on above: Order Comment: [facility] Type: BLOOD SPECIMENOrdering Facility: [facility] Address: [address] [place] [address] Performed By: #### P JULIANNE, 99896-4, HSTNT ####[facility]ATORYCLIA [id number] [place] [id number] [place] [facility] Osmolality Uron 06-15-2021 Osmolality (U) [Osmolality] 606 mosm/kg Normal 50-1,200 [facility] Comment on above: Order Comment: Speci men Type: URINE SPECIMENOrdering Facility: [facility] Address: [address] [place] [address] Performed By: #### 2 695-5 ####[facility]PITALIA [id number] [address] PROCALCITONIN (LAB)on 2021 Procalcitonin [Mass/Vol] 0.21 ng/mL High <0.09 [facility] Comment on above: Order Comment: Speci men Type: BLOOD SPECIMENOrdering Facility: [facility] Address: [address] [place] [address] Result Comment: For a guided interpretation of test results, please visit the Change in Procalcitonin Calculator, [email or web address]. Performed By: #### P JULIANNE, 2951-2 ####[facility]ORYCLIA [id number] [address] [facility] Procalcitonin [Mass/Vol] 0.17 ng/mL High <0.09 [facility] Comment on above: Order Comment: Speci men Type: BLOOD SPECIMENOrdering Facility: [facility] Address: [address] [place] [address] Result Comment: For a guided interpretation of test results, please visit the Change in Procalcitonin Calculator, [email or web address]. Performed By: #### P JULIANNE, 03355-3, HSTNT ####[facility]ORYCLIA [id number] [place] [phone] [place] PROTEIN RANDOM URon 06-15-19 22 Protein (U) [Mass/Vol] 175 mg/dL High 0-20 [facility] Comment on above: Order Comment: Speci men Type: URINE SPECIMENOrdering Facility: [facility] Address: [address] [place] [address] Performed By: #### U TPR, 42600-9, 59282-8, 09658-9 ####[facility]ORYCLIA [id number] [place] [address] [place] PT panel Coag (PPP)on 2021 INR Coag (PPP) [Relative time] 1.1 {INR} Normal <1.4 [facility] Comment on above: Order Comment: Speci men Type: BLOOD SPECIMENOrdering Facility: [facility] Address: [address] [place] [address] Result Comment: Yris min K Antagonist (VKA) Therapeutic Range: INR 2 to 3 (Target INR of 2.5)Note: For patients treated with VKA drugs, such as warfarin, the [place] [employer] 2012 Guideline recommends [...] al. Chest 2012, 141:7S-47SNishimura RA, et al. [facility] 2017, 70: 252-289 Performed By: #### 3 4528-0, 26635-5 ####[facility]ORYCLIA [id number] [place] [address] [place] PT Coag (PPP) [Time] 11.4 s Normal <13.1 [facility] Comment on above: Order Comment: Speci men Type: BLOOD SPECIMENOrdering Facility: [facility] Address: [address] [place] [address] Performed By: #### 3 4528-0, 78820-2 ####[facility]ORYCLIA [id number] [place] [address] [place] Phosphate SerPl-mCncon 06-15 Phosphate [Mass/Vol] 2.6 mg/dL Low 2.7-4.8 [facility] Comment on above: Order Comment: Speci men Type: BLOOD SPECIMEN Performed By: #### 2 4321-2, 2777-1, 81119-3 ####[facility]ORYCLIA [id number] [place] [address] [place] Sodium ?Tm Ur-sCncon 022 Sodium Unsp time (U) [Moles/Vol] 34 mmol/L Normal 14-216 [facility] Comment on above: Order Comment: Speci men Type: URINE SPECIMENOrdering Facility: [facility] Address: [address] [place] [address] Performed By: #### U TPR, 23256-5, 46655-3, 69965-9 ####[facility]ORYCLIA [id number] [place] [address] [place] Sodium SerPl-sCncon 06-15-19 22 Sodium [Moles/Vol] 159 mmol/L High 136-144 [facility] Comment on above: Order Comment: Speci men Type: BLOOD SPECIMENOrdering Facility: [facility] Address: [address] [place] [address] Performed By: #### P JULIANNE, 2951-2 ####[facility]ORYCLIA [id number] [place] [address] [place] THERAPY NTon 06-15-2021 THERAPY NT Normal [facility] Urinalysis complete panel (U )on 06-15-2021 Bacteria LM.HPF (Urine sed) [#/Area] None Seen Normal None Seen [facility] Comment on above: Order Comment: Speci men Type: URINE SPECIMENOrdering Facility: [facility] Address: [address] [place] [address] Performed By: #### 2 4356-8 ####[facility]ORYCLIA [id number] [address] Bilirubin Ql (U) Negative Normal Negative [facility] Comment on above: Order Comment: Speci men Type: URINE SPECIMENOrdering Facility: [facility] Address: [address] [place] [address] Performed By: #### 2 4356-8 ####[facility]ORYCLIA [id number] [address] Clarity (Unsp spec) Cloudy Abnormal Clear [facility] Comment on above: Order Comment: Speci men Type: URINE SPECIMENOrdering Facility: [facility] Address: [address] [place] [address] Performed By: #### 2 4356-8 ####[facility]ORYCLIA [id number] [address] Color (U) Yellow Normal Yellow [facility] Comment on above: Order Comment: Speci men Type: URINE SPECIMENOrdering Facility: [facility] Address: [address] [place] [address] Performed By: #### 2 4356-8 ####[facility]ORYCLIA [id number] [address] Epithelial cells LM.HPF (Urine sed) [#/Area] 7.1 /[HPF] Normal [facility] Comment on above: Order Comment: Speci men Type: URINE SPECIMENOrdering Facility: [facility] Address: [address] [place] [address] Performed By: #### 2 4356-8 ####[facility]ORYCLIA [id number] [address] Glucose Test strip (U) [Mass/Vol] Negative Normal Negative [facility] Comment on above: Order Comment: Speci men Type: URINE SPECIMENOrdering Facility: [facility] Address: [address] [place] [address] Performed By: #### 2 4356-8 ####[facility]ATORYCLIA [id number] [address] Granular casts (Urine sed) [#/Area] /[LPF] Abnormal 0 /LPF [facility] Comment on above: Order Comment: Speci men Type: URINE SPECIMENOrdering Facility: [facility] Address: [address] [place] [address] Performed By: #### 2 4356-8 ####[facility]ATORYCLIA [id number] [address] Hemoglobin Ql (U) Moderate Abnormal Negative [facility] Comment on above: Order Comment: Speci men Type: URINE SPECIMENOrdering Facility: [facility] Address: [address] [place] [address] Performed By: #### 2 4356-8 ####[facility]ORYCLIA [id number] [address] Hyaline casts (Urine sed) [#/Area] /[LPF] Abnormal 0 /LPF [facility] Comment on above: Order Comment: Speci men Type: URINE SPECIMENOrdering Facility: [facility] Address: [address] [place] [address] Performed By: #### 2 4356-8 ####[facility]ORYCLIA [id number] [address] Ketones Ql (U) Negative Normal Negative [facility] Comment on above: Order Comment: Speci men Type: URINE SPECIMENOrdering Facility: [facility] Address: [address] [place] [address] Performed By: #### 2 4356-8 ####[facility]ORATORYCLIA [id number] [address] Leukocyte esterase Test strip Ql (U) Negative Normal Negative [facility] Comment on above: Order Comment: Speci men Type: URINE SPECIMENOrdering Facility: [facility] Address: [address] [place] [address] Performed By: #### 2 4356-8 ####[facility]ORYCLIA [id number] [address] Nitrite Ql (U) Negative Normal Negative [facility] Comment on above: Order Comment: Speci men Type: URINE SPECIMENOrdering Facility: [facility] Address: [address] [place] [address] Performed By: #### 2 4356-8 ####[facility]ORYCLIA [id number] [address] OF [facility] pH (U) 6.0 [pH] Normal 5.0-8.0 [facility] Comment on above: Order Comment: Speci men Type: URINE SPECIMENOrdering Facility: [facility] Address: [address] [place] [address] Performed By: #### 2 4356-8 ####[facility] HOSPITALIA [id number] [address] Protein (U) [Mass/Vol] 100 mg/dL Abnormal Negative [facility] Comment on above: Order Comment: Speci men Type: URINE SPECIMENOrdering Facility: [facility] Address: [address] [place] [address] Performed By: #### 2 4356-8 ####[facility]ITALCLIA [id number] [address] RBC LM.HPF (Urine sed) [#/Area] 0-3 /HPF Normal 0-3 /HPF [facility] Comment on above: Order Comment: Speci men Type: URINE SPECIMENOrdering Facility: [facility] Address: [address] [place] [address] Performed By: #### 2 4356-8 ####[facility]PITALIA [id number] [address] Specific gravity (U) [Rel density] 1.024 Normal 1.005-1.030 [facility] Comment on above: Order Comment: Speci men Type: URINE SPECIMENOrdering Facility: [facility] Address: [address] [place] [address] Performed By: #### 2 4356-8 ####[facility]ORYCLIA [id number] [address] Urobilinogen Ql (U) 0.2 EU/dL Normal 0.2-1.0 EU/dL [facility] Comment on above: Order Comment: Speci men Type: URINE SPECIMENOrdering Facility: [facility] Address: [address] [place] [address] Performed By: #### 2 4356-8 ####[facility]ORYCLIA [id number] [address] WBC LM.HPF (Urine sed) [#/Area] 0-5 /HPF Normal 0-5 /HPF [facility] Comment on above: Order Comment: Speci men Type: URINE SPECIMENOrdering Facility: [facility] Address: [address] [place] [address] Performed By: #### 2 4356-8 ####[facility]ORYCLIA [id number] [address] XR CHEST 1V FRONTALon 2021 XR CHEST 1V FRONTAL Normal [facility] XR CHEST 1V FRONTAL PORTon 0 06-15-2021 XR CHEST 1V FRONTAL PORT Normal [facility] XR CHEST 1V FRONTAL PORT Normal [facility] aPTT PPPon 06-15-2021 aPTT Coag (PPP) [Time] 30.9 s Normal 23.0-32.4 [facility] Comment on above: Order Comment: Speci men Type: BLOOD SPECIMENOrdering Facility: [facility] Address: [address] [place] [address] Performed By: #### 3 4528-0, 98661-9 ####[facility]ORYCLIA [id number] [address] [place] Basic metabolic 2000 panelon 06-14-2021 Anion gap [Moles/Vol] 8 mmol/L Low 9-18 [facility] Comment on above: Order Comment: Speci men Type: BLOOD SPECIMEN Performed By: #### 2 4321-2, 2776-05, ####[facility]ORYCLIA [id number] [place], [place] [address] [place] [address] OF [facility] Calcium [Mass/Vol] 8.9 mg/dL Normal 8.5-10.2 [facility] Comment on above: Order Comment: Speci men Type: BLOOD SPECIMEN Performed By: #### 2 4321-2, 2776-05, ####[facility]ORYCLIA [id number] [address] [place] Chloride [Moles/Vol] 121 mmol/L High 97-105 [facility] Comment on above: Order Comment: Speci men Type: BLOOD SPECIMEN Performed By: #### 2 4321-2, 2776-05, ####[facility]ORYCLIA [id number] [address] [place] CO2 [Moles/Vol] 30 mmol/L Normal 22-30 [facility] Comment on above: Order Comment: Speci men Type: BLOOD SPECIMEN Performed By: #### 2 4321-2, 2776-05, ####[facility]ORYCLIA [id number] [address] [place] Creatinine [Mass/Vol] 0.78 mg/dL Normal 0.73-1.22 [facility] Comment on above: Order Comment: Speci men Type: BLOOD SPECIMEN Performed By: #### 2 4321-2, 2776-05, ####[facility]ORYCLIA [id number] [place] [address] [place] GFR/1.73 sq M.predicted MDRD (S/P/Bld) [Vol rate/Area] mL/min/{1.73_m2} Normal [facility] Comment on above: Order Comment: Speci men [...] GFR. Performed By: #### 2 4321-2, 2776-05, ####[facility]ORYCLIA [id number] [place] [address] [place] Glucose [Mass/Vol] 132 mg/dL High 74-99 [facility] Comment on above: Order Comment: Speci men Type: BLOOD SPECIMEN Result Comment: The [place] Diabetes [employer] (ADA) provides guidance for cutoff [...] Standards of Medical Care in Diabetes 2016, [place] [employer]. Diabetes Care. 2016.39(Suppl 1). Performed By: #### 2 4321-2, 2776-05, ####[facility]ORYCLIA [id number] [place] [address] [place] Potassium [Moles/Vol] 3.7 mmol/L Normal 3.7-5.1 [facility] Comment on above: Order Comment: Speci men Type: BLOOD SPECIMEN Performed By: #### 2 4321-2, 2776-05, ####[facility]ORYCLIA [id number] [place] [address] [place] Sodium [Moles/Vol] 159 mmol/L High 136-144 [facility] Comment on above: Order Comment: Speci men Type: BLOOD SPECIMEN Performed By: #### 2 4321-2, 2776-1, ####[facility]ORYCLIA [id number] [address] Urea nitrogen [Mass/Vol] 35 mg/dL High 9-24 [facility] Comment on above: Order Comment: Speci men Type: BLOOD SPECIMEN Performed By: #### 2 4321-2, 2776-, ####[facility]ORYCLIA [id number] [address] CASE MANAGEMon 06-14-2021 CASE MANAGEM Normal [facility] CBC panel Auto (Bld)on 06-14 Erythrocyte distribution width (RBC) [Ratio] 16.2 % High 11.5-15.0 [facility] Comment on above: Order Comment: Speci men Type: BLOOD SPECIMEN Performed By: #### 5 8410-2 ####[facility]ORYCLIA [id number] [address] Hematocrit (Bld) [Volume fraction] 35.2 % Low 39.0-51.0 [facility] Comment on above: Order Comment: Speci men Type: BLOOD SPECIMEN Performed By: #### 5 8410-2 ####[facility]ORYCLIA [id number] [address] Hemoglobin (Bld) [Mass/Vol] 10.1 g/dL Low 13.0-17.0 [facility] Comment on above: Order Comment: Speci men Type: BLOOD SPECIMEN Performed By: #### 5 8410-2 ####[facility]ORYCLIA [id number] [address] MCH (RBC) [Entitic mass] 27.2 pg Normal 26.0-34.0 [facility] Comment on above: Order Comment: Speci men Type: BLOOD SPECIMEN Performed By: #### 5 8410-2 ####[facility]ORYCLIA [id number] [address] MCHC (RBC) [Mass/Vol] 28.7 g/dL Low 30.5-36.0 [facility] Comment on above: Order Comment: Speci men Type: BLOOD SPECIMEN Performed By: #### 5 8410-2 ####[facility]ORYCLIA [id number] [address] MCV (RBC) [Entitic vol] 94.6 fL Normal 80.0-100.0 [facility] Comment on above: Order Comment: Speci men Type: BLOOD SPECIMEN Performed By: #### 5 8410-2 ####[facility]ORYCLIA [id number] [address] Nucleated RBC (Bld) [#/Vol] 10*3/uL Normal <0.01 [facility] Comment on above: Order Comment: Speci men Type: BLOOD SPECIMEN Performed By: #### 5 8410-2 ####[facility]ORYCLIA [id number] [address] Platelet mean volume (Bld) [Entitic vol] 11.0 fL Normal 9.0-12.7 [facility] Comment on above: Order Comment: Speci men Type: BLOOD SPECIMEN Performed By: #### 5 8410-2 ####[facility]ORYCLIA [id number] [address] Platelets (Bld) [#/Vol] 287 10*3/uL Normal 150-400 [facility] Comment on above: Order Comment: Speci men Type: BLOOD SPECIMEN Performed By: #### 5 8410-2 ####[facility]ORYCLIA [id number] [address] RBC (Bld) [#/Vol] 3.72 10*6/uL Low 4.20-6.00 [facility] Comment on above: Order Comment: Speci men Type: BLOOD SPECIMEN Performed By: #### 5 8410-2 ####[facility]ATORYCLIA [id number] [place], [place] [address] [place] [address] WBC (Bld) [#/Vol] 12.23 10*3/uL High 3.70-11.00 [facility] Comment on above: Order Comment: Speci men Type: BLOOD SPECIMEN Performed By: #### 5 8410-2 ####[facility]ORYCLIA [id number] [address] Comprehensive metabolic 2000 panelon 06-14-2021 Albumin [Mass/Vol] 3.1 g/dL Low 3.9-4.9 [facility] Comment on above: Order Comment: Speci men Type: BLOOD SPECIMEN Performed By: #### 2 4323-8, HSTNT, 2776-05, ####[facility]ORYCLIA [id number] [address] ALP [Catalytic activity/Vol] 72 U/L Normal 38-113 [facility] Comment on above: Order Comment: Speci men Type: BLOOD SPECIMEN Performed By: #### 2 4323-8, HSTNT, 2776-05, ####[facility]ORATORYCLIA [id number] [address] ALT With P-5'-P [Catalytic activity/Vol] 57 U/L High 10-54 [facility] Comment on above: Order Comment: Speci men Type: BLOOD SPECIMEN Performed By: #### 2 4323-8, HSTNT, 2776-05, ####[facility]ATORYCLIA [id number] [address] Anion gap [Moles/Vol] 9 mmol/L Normal 9-18 [facility] Comment on above: Order Comment: Speci men Type: BLOOD SPECIMEN Performed By: #### 2 4323-8, HSTNT, 2776-05, ####[facility]ORYCLIA [id number] [address] AST With P-5'-P [Catalytic activity/Vol] 33 U/L Normal 14-40 [facility] Comment on above: Order Comment: Speci men Type: BLOOD SPECIMEN Performed By: #### 2 4323-8, HSTNT, 2776-05, ####[facility] LABORATORYCLIA [id number] [place], [place] [address] [place] [address] [place] Bilirubin [Mass/Vol] 0.5 mg/dL Normal 0.2-1.3 [facility] Comment on above: Order Comment: Speci men Type: BLOOD SPECIMEN Performed By: #### 2 4323-8, HSTNT, 2776-05, ####[facility]ATORYCLIA [id number] [address] [facility] Calcium [Mass/Vol] 8.8 mg/dL Normal 8.5-10.2 [facility] Comment on above: Order Comment: Speci men Type: BLOOD SPECIMEN Performed By: #### 2 4323-8, HSTNT, 2776-05, ####[facility]ORATORYCLIA [id number] [address] [place] Chloride [Moles/Vol] 124 mmol/L High 97-105 [facility] Comment on above: Order Comment: Speci men Type: BLOOD SPECIMEN Performed By: #### 2 4323-8, HSTNT, 2776-05, ####[facility]ATORYCLIA [id number] [address] [place] CO2 [Moles/Vol] 29 mmol/L Normal 22-30 [facility] Comment on above: Order Comment: Speci men Type: BLOOD SPECIMEN Performed By: #### 2 4323-8, HSTNT, 2776-05, ####[facility] LABORATORYCLIA [id number] [place] [address] [place] Creatinine [Mass/Vol] 0.73 mg/dL Normal 0.73-1.22 [facility] Comment on above: Order Comment: Speci men Type: BLOOD SPECIMEN Performed By: #### 2 4323-8, HSTNT, 2776-05, ####[facility]ATORYCLIA [id number] [address] [place] GFR/1.73 sq M.predicted MDRD (S/P/Bld) [Vol rate/Area] mL/min/{1.73_m2} Normal [facility] Comment on above: Order Comment: Speci [facility] Type: BLOOD SPECIMEN Result Comment: >60e GFR [...] Performed By: #### 2 4323-8, HSTNT, 2776-05, ####[facility]ATORYCLIA [id number] [place] [id number] [place] Glucose [Mass/Vol] 137 mg/dL High 74-99 [facility] Comment on above: Order Comment: [facility] Type: BLOOD SPECIMEN Result Comment: The [place] Diabetes Association (ADA) provides guidance for cutoff [...] Standards of Medical Care in Diabetes 2016, [place] [employer]. Diabetes Care. 2016.39(Suppl 1). Performed By: #### 2 4323-8, HSTNT, 2777-1, ####[facility]ORATORYCLIA [id number] [place], [place] [id number] [place] [address] [place] OF [facility] Potassium [Moles/Vol] 3.6 mmol/L Low 3.7-5.1 [facility] Comment on above: Order Comment: Speci men Type: BLOOD SPECIMEN Performed By: #### 2 4323-8, HSTNT, 2776-05, ####[facility]ORYCLIA [id number] [place], [place] [address] [place] [address] [place] [facility] Protein [Mass/Vol] 5.9 g/dL Low 6.3-8.0 [facility] Comment on above: Order Comment: Speci men Type: BLOOD SPECIMEN Performed By: #### 2 4323-8, HSTNT, 2776-05, ####[facility]ATORYCLIA [id number] [place], [place] [address] [place] [address] Sodium [Moles/Vol] 162 mmol/L High 136-144 [facility] Comment on above: Order Comment: Speci men Type: BLOOD SPECIMEN Performed By: #### 2 4323-8, HSTNT, 2776-05, ####[facility]ORYCLIA [id number] [place], [place] [address] [place] [address] [place] OF [facility] Urea nitrogen [Mass/Vol] 33 mg/dL High 9-24 [facility] Comment on above: Order Comment: Speci men Type: BLOOD SPECIMEN Performed By: #### 2 4323-8, HSTNT, 2776-05, ####[facility]ATORYCLIA [id number] [place], [place] [address] [place] [address] [place] HIGH SENSITIVITY TROPONIN To n 06-14-2021 HIGH SENSITIVITY TAMIKO 22 ng/L High <12 [facility] Comment on above: Order Comment: [...] day MACE. Performed By: #### H STNT ####[facility]ATORYCLIA [id number] [address] HIGH SENSITIVITY TAMIKO 22 ng/L High <12 [facility] Comment on above: Order Comment: [...] Performed By: #### 2 4323-8, HSTNT, 2776-05, ####[facility]ORYCLIA [id number] [address] Magnesium SerPl-mCncon 06-14 Magnesium [Mass/Vol] 2.9 mg/dL High 1.7-2.3 [facility] Comment on above: Order Comment: Speci men Type: BLOOD SPECIMEN Performed By: #### 2 4323-8, HSTNT, 2776-05, ####[facility] [id number] [address] Magnesium [Mass/Vol] 3.0 mg/dL High 1.7-2.3 [facility] Comment on above: Order Comment: Speci men Type: BLOOD SPECIMEN Performed By: #### 2 4321-2, 2776-05, ####[facility]ORY[facility] [id number] [address] NURSING PROGon 06-14-2021 NURSING PROG Normal [facility] NUTRITIONon 06-14-2021 NUTRITION Normal [facility] Phosphate SerPl-mCncon 06-14 Phosphate [Mass/Vol] 2.4 mg/dL Low 2.7-4.8 [facility] Comment on above: Order Comment: Speci men Type: BLOOD SPECIMEN Performed By: #### 2 4323-8, HSTNT, 2776-05, ####[facility]ORY[facility] [id number] [address] STATES OF [facility] Phosphate [Mass/Vol] 3.2 mg/dL Normal 2.7-4.8 [facility] Comment on above: Order Comment: Speci men Type: BLOOD SPECIMEN Performed By: #### 2 4321-2, 2776-05, ####[facility]ORY[facility] [id number] [address] OF [facility] THERAPY NTon 06-14-2021 THERAPY NT Normal [facility] THERAPY NT Normal [facility] THERAPY NT Normal [facility] US DVT LOWER BILon US DVT LOWER RAINER Normal [facility] ALLIED HEALTHon 06-13-2021 ALLIED HEALTH Normal [facility] Basic metabolic 2000 panelon 06-13-2021 Anion gap [Moles/Vol] 7 mmol/L Low 9-18 [facility] Comment on above: Order Comment: Speci men Type: BLOOD SPECIMEN Performed By: #### 2 4321-2, , 2776-05 ####[facility] [id number] [address] STATES OF [facility] Calcium [Mass/Vol] 8.8 mg/dL Normal 8.5-10.2 [facility] Comment on above: Order Comment: Speci men Type: BLOOD SPECIMEN Performed By: #### 2 4321-2, , 2776-05 ####[facility]ATORYCLIA [id number] [address] [place] Chloride [Moles/Vol] 120 mmol/L High 97-105 [facility] Comment on above: Order Comment: Speci men Type: BLOOD SPECIMEN Performed By: #### 2 4321-2, , 2776-05 ####[facility]ORYCLIA [id number] [place] [address] [place] CO2 [Moles/Vol] 28 mmol/L Normal 22-30 [facility] Comment on above: Order Comment: Speci men Type: BLOOD SPECIMEN Performed By: #### 2 4321-2, , 2776-05 ####[facility]ORYCLIA [id number] [place] [address] [place] Creatinine [Mass/Vol] 0.78 mg/dL Normal 0.73-1.22 [facility] Comment on above: Order Comment: Speci men Type: BLOOD SPECIMEN Performed By: #### 2 4321-2, , 2776-05 ####[facility]ORYCLIA [id number] [address] [place] GFR/1.73 sq M.predicted MDRD (S/P/Bld) [Vol rate/Area] mL/min/{1.73_m2} Normal [facility] Comment on above: Order Comment: Speci men [...] Performed By: #### 2 4321-2, , 2776-05 ####[facility]ORYCLIA [id number] [place] [id number] [place] Glucose [Mass/Vol] 126 mg/dL High 74-99 [facility] Comment on above: Order Comment: Speci men Type: BLOOD SPECIMEN Result Comment: The [place] Diabetes Association (ADA) provides guidance for cutoff [...] Standards of Medical Care in Diabetes 2016, [place] [employer]. Diabetes Care. 2016.39(Suppl 1). Performed By: #### 2 1-2, , 2776-05 ####[facility]ORYCLIA [id number] [address] STATES OF [facility] Potassium [Moles/Vol] 3.6 mmol/L Low 3.7-5.1 [facility] Comment on above: Order Comment: Speci men Type: BLOOD SPECIMEN Performed By: #### 2 4320-2, , 2776-05 ####[facility]ORYCLIA [id number] [address] [place] Sodium [Moles/Vol] 155 mmol/L High 136-144 [facility] Comment on above: Order Comment: Speci men Type: BLOOD SPECIMEN Performed By: #### 2 4320-2, , 2776-05 ####[facility]ORYCLIA [id number] [place] [address] [place] Urea nitrogen [Mass/Vol] 36 mg/dL High 9-24 [facility] Comment on above: Order Comment: Speci men Type: BLOOD SPECIMEN Performed By: #### 2 1-2, , 2776-05 ####[facility]ORYCLIA [id number] [address] [place] Anion gap [Moles/Vol] 6 mmol/L Low 9-18 [facility] Comment on above: Order Comment: Speci men Type: BLOOD SPECIMEN Performed By: #### 2 4320-2, 2776-05, ####[facility]ORYCLIA [id number] [place] [address] [place] Calcium [Mass/Vol] 6.5 mg/dL Low 8.5-10.2 [facility] Comment on above: Order Comment: Speci men Type: BLOOD SPECIMEN Performed By: #### 2 4321-2, 7-, ####[facility]ORYCLIA [id number] [address] [place] Chloride [Moles/Vol] 124 mmol/L High 97-105 [facility] Comment on above: Order Comment: Speci men Type: BLOOD SPECIMEN Performed By: #### 2 4321-2, 2776-05, ####[facility]ORYCLIA [id number] [address] STATES OF [facility] CO2 [Moles/Vol] 24 mmol/L Normal 22-30 [facility] Comment on above: Order Comment: Speci men Type: BLOOD SPECIMEN Performed By: #### 2 4321-2, 2776-05, ####[facility]ORYCLIA [id number] [address] [place] Creatinine [Mass/Vol] 0.61 mg/dL Low 0.73-1.22 [facility] Comment on above: Order Comment: Speci men Type: BLOOD SPECIMEN Performed By: #### 2 4321-2, 2776-05, ####[facility]ORYCLIA [id number] [address] [place] GFR/1.73 sq M.predicted MDRD (S/P/Bld) [Vol rate/Area] mL/min/{1.73_m2} Normal [facility] Comment on above: Order Comment: Speci men [...] GFR. Performed By: #### 2 4321-2, 2776-05, ####[facility]ORYCLIA [id number] [place] [address] [place] Glucose [Mass/Vol] 100 mg/dL High 74-99 [facility] Comment on above: Order Comment: Speci men Type: BLOOD SPECIMEN Result Comment: The [place] Diabetes Association (ADA) provides guidance for cutoff [...] Standards of Medical Care in Diabetes 2016, [place] [employer]. Diabetes Care. 2016.39(Suppl 1). Performed By: #### 2 1-2, 2776-05, ####[facility] [id number] [place] [address] [place] Potassium [Moles/Vol] 2.7 mmol/L Low 3.7-5.1 [facility] Comment on above: Order Comment: Speci men Type: BLOOD SPECIMEN Performed By: #### 2 4321-2, 2776-05, ####[facility]ORYCLIA [id number] [place] [address] [place] Sodium [Moles/Vol] 154 mmol/L High 136-144 [facility] Comment on above: Order Comment: Speci men Type: BLOOD SPECIMEN Performed By: #### 2 4321-2, 2776-05, ####[facility]ORYCLIA [id number] [address] STATES [facility] Urea nitrogen [Mass/Vol] 29 mg/dL High 9-24 [facility] Comment on above: Order Comment: Speci men Type: BLOOD SPECIMEN Performed By: #### 2 4321-2, 2777-1, 70023-1 ####[facility]ORYCLIA [id number] [address] CASE MANAGEMon 06-13-2021 CASE MANAGEM Normal [facility] CBC panel Auto (Bld)on 06-13 Erythrocyte distribution width (RBC) [Ratio] 15.9 % High 11.5-15.0 [facility] Comment on above: Order Comment: Speci men Type: BLOOD SPECIMEN Performed By: #### 5 8410-2 ####[facility]ORYCLIA [id number] [address] Hematocrit (Bld) [Volume fraction] 34.3 % Low 39.0-51.0 [facility] Comment on above: Order Comment: Speci men Type: BLOOD SPECIMEN Performed By: #### 5 8410-2 ####[facility]ORYCLIA [id number] [address] Hemoglobin (Bld) [Mass/Vol] 9.9 g/dL Low 13.0-17.0 [facility] Comment on above: Order Comment: Speci men Type: BLOOD SPECIMEN Performed By: #### 5 8410-2 ####[facility]ORYCLIA [id number] [address] MCH (RBC) [Entitic mass] 27.3 pg Normal 26.0-34.0 [facility] Comment on above: Order Comment: Speci men Type: BLOOD SPECIMEN Performed By: #### 5 8410-2 ####[facility]ORYCLIA [id number] [address] [place] MCHC (RBC) [Mass/Vol] 28.9 g/dL Low 30.5-36.0 [facility] Comment on above: Order Comment: Speci men Type: BLOOD SPECIMEN Performed By: #### 5 8410-2 ####[facility]ORYCLIA [id number] [address] MCV (RBC) [Entitic vol] 94.5 fL Normal 80.0-100.0 [facility] Comment on above: Order Comment: Speci men Type: BLOOD SPECIMEN Performed By: #### 5 8410-2 ####[facility]ORYCLIA [id number] [address] Nucleated RBC (Bld) [#/Vol] 10*3/uL Normal <0.01 [facility] Comment on above: Order Comment: Speci men Type: BLOOD SPECIMEN Performed By: #### 5 8410-2 ####[facility]ORYCLIA [id number] [address] Platelet mean volume (Bld) [Entitic vol] 11.3 fL Normal 9.0-12.7 [facility] Comment on above: Order Comment: Speci men Type: BLOOD SPECIMEN Performed By: #### 5 8410-2 ####[facility]ORYCLIA [id number] [address] Platelets (Bld) [#/Vol] 269 10*3/uL Normal 150-400 [facility] Comment on above: Order Comment: Speci men Type: BLOOD SPECIMEN Performed By: #### 5 8410-2 ####[facility]ORYCLIA [id number] [address] RBC (Bld) [#/Vol] 3.63 10*6/uL Low 4.20-6.00 [facility] Comment on above: Order Comment: Speci men Type: BLOOD SPECIMEN Performed By: #### 5 8410-2 ####[facility]ORYCLIA [id number] [address] WBC (Bld) [#/Vol] 12.77 10*3/uL High 3.70-11.00 [facility] Comment on above: Order Comment: Speci men Type: BLOOD SPECIMEN Performed By: #### 5 8410-2 ####[facility]ORYCLIA [id number] [address] Gas and Carbon monoxide pane l (BldV)on 06-13-2021 Base excess Calc (BldV) [Moles/Vol] 5.7 mmol/L High 0-2 [facility] Comment on above: Order Comment: Speci men Type: VENOUS BLOOD SPECIMEN Performed By: #### 2 4344-4 ####[facility]ORYCLIA [id number] [address] Body temperature 99.5 [degF] Normal [facility] Comment on above: Order Comment: Speci men Type: VENOUS BLOOD SPECIMEN Performed By: #### 2 4344-4 ####[facility]ORYCLIA [id number] [address] CALCIUM IONIZED, PH CORRECTED 1.24 mmol/L Normal 1.08-1.30 [facility] Comment on above: Order Comment: Speci men Type: VENOUS BLOOD SPECIMEN Performed By: #### 2 4344-4 ####[facility]ORYCLIA [id number] [address] Calcium.ionized (BldV) [Mass/Vol] 1.23 mmol/L Normal 1.08-1.30 [facility] Comment on above: Order Comment: Speci men Type: VENOUS BLOOD SPECIMEN Performed By: #### 2 4344-4 ####[facility]ORYCLIA [id number] [address] Carboxyhemoglobin (BldV) [Mass fraction] 1.2 % Normal 0.0-2.0 [facility] Comment on above: Order Comment: Speci men Type: VENOUS BLOOD SPECIMEN Result Comment: Carb oxyhemoglobin Reference Range for Smokers: 2.0-8.0% Performed By: #### 2 4344-4 ####[facility]ATORYCLIA [id number] [place], [place] [address] [place] [address] CO2 (BldV) [Partial pressure] 48 mm[Hg] Normal 42-55 [facility] Comment on above: Order Comment: Speci men Type: VENOUS BLOOD SPECIMEN Performed By: #### 2 4344-4 ####[facility]ORYCLIA [id number] [place], [place] [address] [place] [address] CO2 [Moles/Vol] 28.2 mmol/L Normal 25-29 [facility] Comment on above: Order Comment: Speci men Type: VENOUS BLOOD SPECIMEN Performed By: #### 2 4344-4 ####[facility]ORYCLIA [id number] [address] CO2 adjusted to patient's actual temperature (BldV) [Partial pressure] 49 mmHg Normal 42-55 [facility] Comment on above: Order Comment: Speci men Type: VENOUS BLOOD SPECIMEN Performed By: #### 2 4344-4 ####[facility]ORYCLIA [id number] [address] Glucose [Mass/Vol] 131 mg/dL High 60-105 [facility] Comment on above: Order Comment: Speci men Type: VENOUS BLOOD SPECIMEN Performed By: #### 2 4344-4 ####[facility]ORYCLIA [id number] [address] OF [facility] HCO3 (Bld) [Moles/Vol] 30.6 mmol/L High 24-28 [facility] Comment on above: Order Comment: Speci men Type: VENOUS BLOOD SPECIMEN Performed By: #### 2 4344-4 ####[facility]ORYCLIA [id number] [address] Hematocrit (Bld) [Volume fraction] 32.8 % Low 39.0-51.0 [facility] Comment on above: Order Comment: Speci men Type: VENOUS BLOOD SPECIMEN Performed By: #### 2 4344-4 ####[facility]ORATORYCLIA [id number] [place] [address] [place] Hemoglobin (Bld) [Mass/Vol] 10.6 g/dL Low 13.0-17.0 [facility] Comment on above: Order Comment: Speci men Type: VENOUS BLOOD SPECIMEN Performed By: #### 2 4344-4 ####[facility]ORYCLIA [id number] [address] [place] LITERS 6 Liters/min Normal [facility] Comment on above: Order Comment: Speci men Type: VENOUS BLOOD SPECIMEN Performed By: #### 2 4344-4 ####[facility]ORYCLIA [id number] [address] Methemoglobin (Bld) [Mass fraction] 1.0 % Normal 0.0-1.5 [facility] Comment on above: Order Comment: Speci men Type: VENOUS BLOOD SPECIMEN Performed By: #### 2 4344-4 ####[facility]ORYCLIA [id number] [address] O2 THERAPY NC = Nasal Cannula Normal [facility] Comment on above: Order Comment: Speci men Type: VENOUS BLOOD SPECIMEN Performed By: #### 2 4344-4 ####[facility]ORYCLIA [id number] [address] [place] Oxygen (BldV) [Partial pressure] 42 mm[Hg] Normal 35-45 [facility] Comment on above: Order Comment: Speci men Type: VENOUS BLOOD SPECIMEN Performed By: #### 2 4344-4 ####[facility]ORYCLIA [id number] [address] [place] Oxygen adjusted to patient's actual temperature (BldV) [Partial pressure] 43.8 mmHg Normal 35-45 [facility] Comment on above: Order Comment: Speci men Type: VENOUS BLOOD SPECIMEN Performed By: #### 2 4344-4 ####[facility]ORYCLIA [id number] [address] OF [place] Oxygen saturation in Blood 76.7 % Normal 60-85 [facility] Comment on above: Order Comment: Speci men Type: VENOUS BLOOD SPECIMEN Performed By: #### 2 4344-4 ####[facility]ORYCLIA [id number] [address] Oxyhemoglobin (BldV) [Mass fraction] 75 % Normal 60-85 [facility] Comment on above: Order Comment: Speci men Type: VENOUS BLOOD SPECIMEN Performed By: #### 2 4344-4 ####[facility]ORYCLIA [id number] [address] pH (BldV) 7.42 [pH] Normal 7.32-7.42 [facility] Comment on above: Order Comment: Speci men Type: VENOUS BLOOD SPECIMEN Performed By: #### 2 4344-4 ####[facility]ORYCLIA [id number] [address] pH adjusted to patient's actual temperature (BldV) 7.41 Normal 7.32-7.42 [facility] Comment on above: Order Comment: Speci men Type: VENOUS BLOOD SPECIMEN Performed By: #### 2 4344-4 ####[facility]ORYCLIA [id number] [address] Potassium [Moles/Vol] 3.5 mmol/L Normal 3.5-5.0 [facility] Comment on above: Order Comment: Speci men Type: VENOUS BLOOD SPECIMEN Performed By: #### 2 4344-4 ####[facility]ORYCLIA [id number] [address] Sodium [Moles/Vol] 157 mmol/L High 136-144 [facility] Comment on above: Order Comment: Speci men Type: VENOUS BLOOD SPECIMEN Performed By: #### 2 4344-4 ####[facility]ORYCLIA [id number] [address] OF [facility] Magnesium SerPl-mCncon 06-13 Magnesium [Mass/Vol] 3.0 mg/dL High 1.7-2.3 [facility] Comment on above: Order Comment: Speci men Type: BLOOD SPECIMEN Performed By: #### 2 4321-2, 06354-3, 2776-05 ####[facility]ATORYCLIA [id number] [place], [place] [address] [place] [address] [place] OF [facility] Magnesium [Mass/Vol] 2.2 mg/dL Normal 1.7-2.3 [facility] Comment on above: Order Comment: Speci men Type: BLOOD SPECIMEN Performed By: #### 2 4321-2, 2776-, ####[facility]ORYCLIA [id number] [place], [place] [address] [place] [address] [place] Phosphate SerPl-mCncon 06-13 Phosphate [Mass/Vol] 2.2 mg/dL Low 2.7-4.8 [facility] Comment on above: Order Comment: Speci men Type: BLOOD SPECIMEN Performed By: #### 2 4321-2, 74933-4, 2776-05 ####[facility]ORYCLIA [id number] [place], [place] [address] [place] [address] [place] OF [facility] Phosphate [Mass/Vol] 1.8 mg/dL Low 2.7-4.8 [facility] Comment on above: Order Comment: Speci men Type: BLOOD SPECIMEN Performed By: #### 2 4321-2, 2776-05, ####[facility]ORYCLIA [id number] [place], [place] [address] [place] [address] [place] XR CHEST 1V FRONTALon 2021 XR CHEST 1V FRONTAL Normal [facility] ALLIED HEALTHon 06-12-2021 ALLIED HEALTH Normal [facility] BRIEF OP NOTon 06-12-2021 BRIEF OP NOT Normal [facility] Bacteria Fld Culton 06-12-19 22 Bacteria identified Cx Nom (Body fld) CULTURE, BODY FLD: No growth 5 days GRAM STAIN: No organisms seen Moderate Polymorphonuclear leukocytes Normal [facility] Comment on above: Performed By: #### 6 11-4 ####[facility]ORYCLIA [id number] [place] [address] [place] Basic metabolic 2000 panelon 06-12-2021 Anion gap [Moles/Vol] 6 mmol/L Low 9-18 [facility] Comment on above: Order Comment: Speci men Type: BLOOD SPECIMEN Performed By: #### 2 777-1, 56413-8, ####[facility]ATORYCLIA [id number] [place], [place] [address] [place] [address] [place] Calcium [Mass/Vol] 8.7 mg/dL Normal 8.5-10.2 [facility] Comment on above: Order Comment: Speci men Type: BLOOD SPECIMEN Performed By: #### 2 777-1, 88933-5, ####[facility]ORYCLIA [id number] [address] Chloride [Moles/Vol] 118 mmol/L High 97-105 [facility] Comment on above: Order Comment: Speci men Type: BLOOD SPECIMEN Performed By: #### 2 777-1, 56710-9, ####[facility]ORYCLIA [id number] [place], [place] [address] [place] [address] [place] CO2 [Moles/Vol] 28 mmol/L Normal 22-30 [facility] Comment on above: Order Comment: Speci men Type: BLOOD SPECIMEN Performed By: #### 2 777-1, 62767-1, ####[facility]ORYCLIA [id number] [place], [place] [address] [place] [address] [place] Creatinine [Mass/Vol] 0.77 mg/dL Normal 0.73-1.22 [facility] Comment on above: Order Comment: Speci men Type: BLOOD SPECIMEN Performed By: #### 2 777-1, 12082-2, ####[facility]ORYCLIA [id number] [place], [place] [address] [place] [address] [place] GFR/1.73 sq M.predicted MDRD (S/P/Bld) [Vol rate/Area] mL/min/{1.73_m2} Normal [facility] Comment on above: Order Comment: Speci men [...] actual GFR. Performed By: #### 2 777-1, 55823-6, ####[facility]ORYCLIA [id number] [place] [address] [place] Glucose [Mass/Vol] 116 mg/dL High 74-99 [facility] Comment on above: Order Comment: [facility] Type: BLOOD SPECIMEN Result Comment: The [place] Diabetes Association (ADA) provides guidance for cutoff [...] Standards of Medical Care in Diabetes 2016, [place] [employer]. Diabetes Care. 2016.39(Suppl 1). Performed By: #### 2 777-1, 38552-8, ####[facility]ORYCLIA [id number] [place] [address] [place] Potassium [Moles/Vol] 4.0 mmol/L Normal 3.7-5.1 [facility] Comment on above: Order Comment: [facility] Type: BLOOD SPECIMEN Performed By: #### 2 777-1, 00820-0, ####[facility]ORYCLIA [id number] [address] Sodium [Moles/Vol] 152 mmol/L High 136-144 [facility] Comment on above: Order Comment: Speci men Type: BLOOD SPECIMEN Performed By: #### 2 777-1, 68855-0, ####[facility]ORYCLIA [id number] [address] Urea nitrogen [Mass/Vol] 34 mg/dL High 9-24 [facility] Comment on above: Order Comment: Speci men Type: BLOOD SPECIMEN Performed By: #### 2 777-1, 51770-6, ####[facility]ORYCLIA [id number] [address] CBC panel Auto (Bld)on 06-12 Erythrocyte distribution width (RBC) [Ratio] 16.1 % High 11.5-15.0 [facility] Comment on above: Order Comment: Speci men Type: BLOOD SPECIMEN Performed By: #### 5 8410-2 ####[facility]ORYCLIA [id number] [address] Hematocrit (Bld) [Volume fraction] 32.8 % Low 39.0-51.0 [facility] Comment on above: Order Comment: Speci men Type: BLOOD SPECIMEN Performed By: #### 5 8410-2 ####[facility]ORYCLIA [id number] [address] Hemoglobin (Bld) [Mass/Vol] 9.9 g/dL Low 13.0-17.0 [facility] Comment on above: Order Comment: Speci men Type: BLOOD SPECIMEN Performed By: #### 5 8410-2 ####[facility]ORYCLIA [id number] [address] MCH (RBC) [Entitic mass] 28.4 pg Normal 26.0-34.0 [facility] Comment on above: Order Comment: Speci men Type: BLOOD SPECIMEN Performed By: #### 5 8410-2 ####[facility]ORYCLIA [id number] [address] MCHC (RBC) [Mass/Vol] 30.2 g/dL Low 30.5-36.0 [facility] Comment on above: Order Comment: Speci men Type: BLOOD SPECIMEN Performed By: #### 5 8410-2 ####[facility]ORYCLIA [id number] [address] MCV (RBC) [Entitic vol] 94.3 fL Normal 80.0-100.0 [facility] Comment on above: Order Comment: Speci men Type: BLOOD SPECIMEN Performed By: #### 5 8410-2 ####[facility]ORYCLIA [id number] [address] Nucleated RBC (Bld) [#/Vol] 10*3/uL Normal <0.01 [facility] Comment on above: Order Comment: Speci men Type: BLOOD SPECIMEN Performed By: #### 5 8410-2 ####[facility]ORYCLIA [id number] [address] Platelet mean volume (Bld) [Entitic vol] 11.2 fL Normal 9.0-12.7 [facility] Comment on above: Order Comment: Speci men Type: BLOOD SPECIMEN Performed By: #### 5 8410-2 ####[facility]ORYCLIA [id number] [address] Platelets (Bld) [#/Vol] 218 10*3/uL Normal 150-400 [facility] Comment on above: Order Comment: Speci men Type: BLOOD SPECIMEN Performed By: #### 5 8410-2 ####[facility]ORYCLIA [id number] [address] RBC (Bld) [#/Vol] 3.48 10*6/uL Low 4.20-6.00 [facility] Comment on above: Order Comment: Speci men Type: BLOOD SPECIMEN Performed By: #### 5 8410-2 ####[facility]ORYCLIA [id number] [address] STATES [facility] WBC (Bld) [#/Vol] 13.33 10*3/uL High 3.70-11.00 [facility] Comment on above: Order Comment: Speci men Type: BLOOD SPECIMEN Performed By: #### 5 8410-2 ####[facility]ORYCLIA [id number] [address] CONSULT PROGon 06-12-2021 CONSULT PROG Normal [facility] PERIT/RETROP FL BIon 06-12-[address] PERIT/RETROP FL BI Normal [facility] HISTORY PHYSICALon HISTORY PHYSICAL Normal [facility] Magnesium SerPl-mCncon 06-12 Magnesium [Mass/Vol] 2.7 mg/dL High 1.7-2.3 [facility] Comment on above: Order Comment: Speci men Type: BLOOD SPECIMEN Performed By: #### 2 777-1, 12088-2, 84955-2 ####[facility]ORYCLIA [id number] [address] PT panel Coag (PPP)on 2021 INR Coag (PPP) [Relative time] 1.1 {INR} Normal 0.9-1.3 [facility] Comment on above: Order Comment: Speci men Type: BLOOD SPECIMEN Result Comment: Yris min K Antagonist (VKA) Therapeutic Range: INR 2 to 3 (Target INR of 2.5)Note: For patients treated with VKA drugs, such as warfarin, the [place] [employer] 2012 Guideline recommends [...] al. Chest 2012, 141:7S-47SNishimura RA, et al. [facility] 2017, 70: 252-289 Performed By: #### 3 4528-0 ####[facility]ORYCLIA [id number] [address] [place] PT Coag (PPP) [Time] 11.9 s Normal 9.7-13.0 [facility] Comment on above: Order Comment: Speci men Type: BLOOD SPECIMEN Performed By: #### 3 4528-0 ####[facility]ORYCLIA [id number] [address] STATES OF [facility] Phosphate SerPl-mCncon 06-12 Phosphate [Mass/Vol] 2.2 mg/dL Low 2.7-4.8 [facility] Comment on above: Order Comment: Speci men Type: BLOOD SPECIMEN Performed By: #### 2 777-1, 01239-7, 86217-1 ####[facility] [id number] [address] STATES OF [facility] XR ABDOMEN 1V SUPINEon 06-12 XR ABDOMEN 1V SUPINE Normal [facility] ALLIED HEALTHon 06-11-2021 ALLIED HEALTH Normal [facility] Bacteria Bld Culton 06-11-19 22 Bacteria identified Cx Nom (Bld) CULTURE, BLOOD: No growth 5 days Normal [facility] Comment on above: Performed By: #### 6 00-7 ####[facility]ORYCLIA [id number] [address] [place] OF [facility] Bacteria identified Cx Nom (Bld) CULTURE, BLOOD: No growth 5 days Normal [facility] Comment on above: Performed By: #### 6 00-7 ####[facility]ORY[facility] [id number] [address] [place] Bacteria Ur Culton 2 Bacteria identified Cx Nom (U) CULTURE, URINE: No growth (<1,000 CFU/ml) Normal [facility] Comment on above: Performed By: #### 6 30-4 ####[facility]ORYCL[facility] [id number] [place] [facility] Basic metabolic 2000 panelon 06-11-2021 Anion gap [Moles/Vol] 9 mmol/L Normal 9-18 [facility] Comment on above: Order Comment: Speci men Type: BLOOD SPECIMEN Performed By: #### 1 9123-9, 2776-, 34963-6 ####[facility]ATORYCLIA [id number] [address] [place] Calcium [Mass/Vol] 8.5 mg/dL Normal 8.5-10.2 [facility] Comment on above: Order Comment: Speci men Type: BLOOD SPECIMEN Performed By: #### 1 9123-9, 2776-, 31433-4 ####[facility]ATORYCLIA [id number] [address] [place] Chloride [Moles/Vol] 118 mmol/L High 97-105 [facility] Comment on above: Order Comment: Speci men Type: BLOOD SPECIMEN Performed By: #### 1 9123-9, 2776-, 37304-4 ####[facility]ORYCLIA [id number] [address] [place] CO2 [Moles/Vol] 27 mmol/L Normal 22-30 [facility] Comment on above: Order Comment: Speci men Type: BLOOD SPECIMEN Performed By: #### 1 9123-9, 2776-, 11959-0 ####[facility]ORYCLIA [id number] [address] [place] Creatinine [Mass/Vol] 0.75 mg/dL Normal 0.73-1.22 [facility] Comment on above: Order Comment: Speci men Type: BLOOD SPECIMEN Performed By: #### 1 9123-9, 2776-, 12970-5 ####[facility]PITALIA [id number] [place] [address] [place] GFR/1.73 sq M.predicted MDRD (S/P/Bld) [Vol rate/Area] mL/min/{1.73_m2} Normal [facility] Comment on above: Order Comment: Speci men [...] GFR. Performed By: #### 1 9123-9, 2777-1, 30774-3 ####[facility]PITALIA [id number] [place] [id number] [place] Glucose [Mass/Vol] 142 mg/dL High 74-99 [facility] Comment on above: Order Comment: Speci men Type: BLOOD SPECIMEN Result Comment: The [place] Diabetes Association (ADA) provides guidance for cutoff [...] Standards of Medical Care in Diabetes 2016, [place] [employer]. Diabetes Care. 2016.39(Suppl 1). Performed By: #### 1 9123-9, 2777-1, 82361-3 ####[facility]ITALIA [id number] [place] [address] [place] Potassium [Moles/Vol] 3.6 mmol/L Low 3.7-5.1 [facility] Comment on above: Order Comment: Speci men Type: BLOOD SPECIMEN Performed By: #### 1 9123-9, 277-, 57320-5 ####[facility]ORY[facility]IA [id number] [address] Sodium [Moles/Vol] 154 mmol/L High 136-144 [facility] Comment on above: Order Comment: Speci men Type: BLOOD SPECIMEN Performed By: #### 1 9123-9, 2776-05, 44449-0 ####[facility]ORYCLIA [id number] [address] Urea nitrogen [Mass/Vol] 31 mg/dL High 9-24 [facility] Comment on above: Order Comment: Speci men Type: BLOOD SPECIMEN Performed By: #### 1 9123-9, 2776-05, 36522-5 ####[facility]ORYCLIA [id number] [address] OF [facility] C diff Tox gens Stl Ql MEGAN+p robeon 06-11-2021 C. difficile toxin genes MEGAN+probe Ql (Stl) Negative Normal Negative for C. difficile toxin by PCR [facility] Comment on above: Order Comment: Speci men Type: STOOL SPECIMEN Performed By: #### 5 4067-4 ####[facility]ORYCLIA [id number] [address] CBC W Auto Differential pane l (Bld)on 06-11-2021 Basophils (Bld) [#/Vol] 0.03 10*3/uL Normal <0.11 [facility] Comment on above: Order Comment: Speci men Type: BLOOD SPECIMEN Performed By: #### 5 7021-8 ####[facility]ORYCLIA [id number] [address] Basophils/100 WBC (Bld) 0.2 % Normal [facility] Comment on above: Order Comment: Speci men Type: BLOOD SPECIMEN Performed By: #### 5 7021-8 ####[facility]ORYCLIA [id number] [address] Differential cell count method Nom (Bld) Auto Normal [facility] Comment on above: Order Comment: Speci men Type: BLOOD SPECIMEN Performed By: #### 5 7021-8 ####[facility]ORYCLIA [id number] [address] Eosinophils (Bld) [#/Vol] 0.19 10*3/uL Normal <0.46 [facility] Comment on above: Order Comment: Speci men Type: BLOOD SPECIMEN Performed By: #### 5 7021-8 ####[facility]ORYCLIA [id number] [address] Eosinophils/100 WBC (Bld) 1.5 % Normal [facility] Comment on above: Order Comment: Speci men Type: BLOOD SPECIMEN Performed By: #### 5 7021-8 ####[facility]ORYCLIA [id number] [address] Erythrocyte distribution width (RBC) [Ratio] 16.3 % High 11.5-15.0 [facility] Comment on above: Order Comment: Speci men Type: BLOOD SPECIMEN Performed By: #### 5 7021-8 ####[facility]ORYCLIA [id number] [address] Hematocrit (Bld) [Volume fraction] 32.1 % Low 39.0-51.0 [facility] Comment on above: Order Comment: Speci men Type: BLOOD SPECIMEN Performed By: #### 5 7021-8 ####[facility]ATORYCLIA [id number] [address] Hemoglobin (Bld) [Mass/Vol] 9.3 g/dL Low 13.0-17.0 [facility] Comment on above: Order Comment: Speci men Type: BLOOD SPECIMEN Performed By: #### 5 7021-8 ####[facility]ORYCLIA [id number] [address] IMMATURE GRAN % 0.6 % Normal [facility] Comment on above: Order Comment: Speci men Type: BLOOD SPECIMEN Performed By: #### 5 7021-8 ####[facility]ORYCLIA [id number] [address] IMMATURE GRAN ABS 0.08 k/uL Normal <0.10 [facility] Comment on above: Order Comment: Speci men Type: BLOOD SPECIMEN Performed By: #### 5 7021-8 ####[facility]ORYCLIA [id number] [address] Lymphocytes (Bld) [#/Vol] 1.65 10*3/uL Normal 1.00-4.00 [facility] Comment on above: Order Comment: Speci men Type: BLOOD SPECIMEN Performed By: #### 5 7021-8 ####[facility]ORYCLIA [id number] [address] Lymphocytes/100 WBC (Bld) 12.8 % Normal [facility] Comment on above: Order Comment: Speci men Type: BLOOD SPECIMEN Performed By: #### 5 7021-8 ####[facility]ORYCLIA [id number] [address] MCH (RBC) [Entitic mass] 27.2 pg Normal 26.0-34.0 [facility] Comment on above: Order Comment: Speci men Type: BLOOD SPECIMEN Performed By: #### 5 7021-8 ####[facility]OR[facility]ORYCLIA [id number] [address] MCHC (RBC) [Mass/Vol] 29.0 g/dL Low 30.5-36.0 [facility] Comment on above: Order Comment: Speci men Type: BLOOD SPECIMEN Performed By: #### 5 7021-8 ####[facility]ORYCLIA [id number] [address] MCV (RBC) [Entitic vol] 93.9 fL Normal 80.0-100.0 [facility] Comment on above: Order Comment: Speci men Type: BLOOD SPECIMEN Performed By: #### 5 7021-8 ####[facility]ORYCLIA [id number] [address] Monocytes (Bld) [#/Vol] 0.68 10*3/uL Normal <0.87 [facility] Comment on above: Order Comment: Speci men Type: BLOOD SPECIMEN Performed By: #### 5 7021-8 ####[facility]ORYCLIA [id number] [address] Monocytes/100 WBC (Bld) 5.3 % Normal [facility] Comment on above: Order Comment: Speci men Type: BLOOD SPECIMEN Performed By: #### 5 7021-8 ####[facility]ORYCLIA [id number] [address] Neutrophils (Bld) [#/Vol] 10.22 10*3/uL High 1.45-7.50 [facility] Comment on above: Order Comment: Speci men Type: BLOOD SPECIMEN Performed By: #### 5 7021-8 ####[facility]ORYCLIA [id number] [address] Neutrophils/100 WBC (Bld) 79.6 % Normal [facility] Comment on above: Order Comment: Speci men Type: BLOOD SPECIMEN Performed By: #### 5 7021-8 ####[facility]ORYCLIA [id number] [address] Nucleated RBC (Bld) [#/Vol] 10*3/uL Normal <0.01 [facility] Comment on above: Order Comment: Speci men Type: BLOOD SPECIMEN Performed By: #### 5 7021-8 ####[facility]ORYCLIA [id number] [address] OF [facility] Nucleated RBC/100 WBC (Bld) [Ratio] 0.0 /100 WBC Normal 0.0 [facility] Comment on above: Order Comment: Speci men Type: BLOOD SPECIMEN Performed By: #### 5 7021-8 ####[facility]ORYCLIA [id number] [address] Platelet mean volume (Bld) [Entitic vol] 11.1 fL Normal 9.0-12.7 [facility] Comment on above: Order Comment: Speci men Type: BLOOD SPECIMEN Performed By: #### 5 7021-8 ####[facility]ORYCLIA [id number] [address] Platelets (Bld) [#/Vol] 188 10*3/uL Normal 150-400 [facility] Comment on above: Order Comment: Speci men Type: BLOOD SPECIMEN Performed By: #### 5 7021-8 ####[facility]ORYCLIA [id number] [address] RBC (Bld) [#/Vol] 3.42 10*6/uL Low 4.20-6.00 [facility] Comment on above: Order Comment: Speci men Type: BLOOD SPECIMEN Performed By: #### 5 7021-8 ####[facility]ORYCLIA [id number] [address] WBC (Bld) [#/Vol] 12.85 10*3/uL High 3.70-11.00 [facility] Comment on above: Order Comment: Speci men Type: BLOOD SPECIMEN Performed By: #### 5 7021-8 ####[facility]ORYCLIA [id number] [address] CBC panel Auto (Bld)on 06-11 Erythrocyte distribution width (RBC) [Ratio] 16.2 % High 11.5-15.0 [facility] Comment on above: Order Comment: Speci men Type: BLOOD SPECIMEN Performed By: #### 5 8410-2 ####[facility]ORYCLIA [id number] [address] Hematocrit (Bld) [Volume fraction] 34.5 % Low 39.0-51.0 [facility] Comment on above: Order Comment: Speci men Type: BLOOD SPECIMEN Performed By: #### 5 8410-2 ####[facility]ORYCLIA [id number] [address] Hemoglobin (Bld) [Mass/Vol] 10.3 g/dL Low 13.0-17.0 [facility] Comment on above: Order Comment: Speci men Type: BLOOD SPECIMEN Performed By: #### 5 8410-2 ####[facility]ORYCLIA [id number] [address] MCH (RBC) [Entitic mass] 28.1 pg Normal 26.0-34.0 [facility] Comment on above: Order Comment: Speci men Type: BLOOD SPECIMEN Performed By: #### 5 8410-2 ####[facility]ORYCLIA [id number] [address] MCHC (RBC) [Mass/Vol] 29.9 g/dL Low 30.5-36.0 [facility] Comment on above: Order Comment: Speci men Type: BLOOD SPECIMEN Performed By: #### 5 8410-2 ####[facility]ORYCLIA [id number] [address] MCV (RBC) [Entitic vol] 94.3 fL Normal 80.0-100.0 [facility] Comment on above: Order Comment: Speci men Type: BLOOD SPECIMEN Performed By: #### 5 8410-2 ####[facility]ORYCLIA [id number] [address] Nucleated RBC (Bld) [#/Vol] 10*3/uL Normal <0.01 [facility] Comment on above: Order Comment: Speci men Type: BLOOD SPECIMEN Performed By: #### 5 8410-2 ####[facility]ORYCLIA [id number] [address] Platelet mean volume (Bld) [Entitic vol] 10.9 fL Normal 9.0-12.7 [facility] Comment on above: Order Comment: Speci men Type: BLOOD SPECIMEN Performed By: #### 5 8410-2 ####[facility]ORYCLIA [id number] [address] Platelets (Bld) [#/Vol] 210 10*3/uL Normal 150-400 [facility] Comment on above: Order Comment: Speci men Type: BLOOD SPECIMEN Performed By: #### 5 8410-2 ####[facility]ORYCLIA [id number] [address] RBC (Bld) [#/Vol] 3.66 10*6/uL Low 4.20-6.00 [facility] Comment on above: Order Comment: Speci men Type: BLOOD SPECIMEN Performed By: #### 5 8410-2 ####[facility]ORYCLIA [id number] [address] WBC (Bld) [#/Vol] 13.03 10*3/uL High 3.70-11.00 [facility] Comment on above: Order Comment: Speci men Type: BLOOD SPECIMEN Performed By: #### 5 8410-2 ####[facility]ORYCLIA [id number] [address] CONSULT PROGon 06-11-2021 CONSULT PROG Normal [facility] CONSULT PROG Normal [facility] CONSULT PROG Normal [facility] CT ABD/PEL W IVCONon 022 CT ABD/PEL W IVCON Invalid Interpretation Code [facility] Magnesium SerPl-mCncon 06-11 Magnesium [Mass/Vol] 2.7 mg/dL High 1.7-2.3 [facility] Comment on above: Order Comment: Speci men Type: BLOOD SPECIMEN Performed By: #### 1 9123-9, 2777-1, 15950-2 ####[facility]ORYCLIA [id number] [address] Phosphate SerPl-mCncon 06-11 Phosphate [Mass/Vol] 2.5 mg/dL Low 2.7-4.8 [facility] Comment on above: Order Comment: Speci men Type: BLOOD SPECIMEN Performed By: #### 1 9123-9, 2777-1, 34892-7 ####[facility] LABORATORYCLIA [id number] [place] [address] [place] Basic metabolic 2000 panelon 06-10-2021 Anion gap [Moles/Vol] 7 mmol/L Low 9-18 [facility] Comment on above: Order Comment: Speci men Type: BLOOD SPECIMEN Performed By: #### 2 777-1, 54954-6, , HFP ####[facility]ORYCLIA [id number] [address] [place] Calcium [Mass/Vol] 8.5 mg/dL Normal 8.5-10.2 [facility] Comment on above: Order Comment: Speci men Type: BLOOD SPECIMEN Performed By: #### 2 777-1, 23271-3, , HFP ####[facility] LABORATORYCLIA [id number] [place], [place] [address] [place] [address] [place] Chloride [Moles/Vol] 118 mmol/L High 97-105 [facility] Comment on above: Order Comment: Speci men Type: BLOOD SPECIMEN Performed By: #### 2 777-1, 89208-0, , HFP ####[facility]ORYCLIA [id number] [place] [address] [place] CO2 [Moles/Vol] 26 mmol/L Normal 22-30 [facility] Comment on above: Order Comment: Speci men Type: BLOOD SPECIMEN Performed By: #### 2 777-1, 34381-2, , HFP ####[facility] LABORATORYCLIA [id number] [place] [address] [place] Creatinine [Mass/Vol] 0.70 mg/dL Low 0.73-1.22 [facility] Comment on above: Order Comment: Speci men Type: BLOOD SPECIMEN Performed By: #### 2 777-1, 31642-4, 07580-3, [facility] ####[facility]ITALCLIA [id number] [place] [id number] [place] GFR/1.73 sq M.predicted MDRD (S/P/Bld) [Vol rate/Area] mL/min/{1.73_m2} Normal [facility] Comment on above: Order Comment: Speci men [...] actual GFR. Performed By: #### 2 777-1, 01179-7, , [facility] ####[facility]PITALIA [id number] [place] [id number] [place] Glucose [Mass/Vol] 135 mg/dL High 74-99 [facility] Comment on above: Order Comment: [facility] Type: BLOOD SPECIMEN Result Comment: The [place] Diabetes Association (ADA) provides guidance for cutoff [...] Standards of Medical Care in Diabetes 2016, [place] [employer]. Diabetes Care. 2016.39(Suppl 1). Performed By: #### 2 777-1, 17255-0, , HFP ####[facility]ATORYCLIA [id number] [place], [place] [address] [place] [address] [place] [facility] Potassium [Moles/Vol] 3.9 mmol/L Normal 3.7-5.1 [facility] Comment on above: Order Comment: Speci men Type: BLOOD SPECIMEN Performed By: #### 2 777-1, 36290-2, , HFP ####[facility] LABORATORYCLIA [id number] [address] STATES [facility] Sodium [Moles/Vol] 151 mmol/L High 136-144 [facility] Comment on above: Order Comment: Speci men Type: BLOOD SPECIMEN Performed By: #### 2 777-1, 12150-0, , HFP ####[facility]ORYCLIA [id number] [address] Urea nitrogen [Mass/Vol] 27 mg/dL High 9-24 [facility] Comment on above: Order Comment: Speci men Type: BLOOD SPECIMEN Performed By: #### 2 777-1, 56765-6, , HFP ####[facility]ORYCLIA [id number] [address] CASE MANAGEMon 06-10-2021 CASE MANAGEM Normal [facility] CBC panel Auto (Bld)on 06-10 Erythrocyte distribution width (RBC) [Ratio] 16.2 % High 11.5-15.0 [facility] Comment on above: Order Comment: Speci men Type: BLOOD SPECIMEN Performed By: #### 5 8410-2 ####[facility]ORATORYCLIA [id number] [address] Hematocrit (Bld) [Volume fraction] 34.8 % Low 39.0-51.0 [facility] Comment on above: Order Comment: Speci men Type: BLOOD SPECIMEN Performed By: #### 5 8410-2 ####[facility]ORYCLIA [id number] [address] Hemoglobin (Bld) [Mass/Vol] 10.2 g/dL Low 13.0-17.0 [facility] Comment on above: Order Comment: Speci men Type: BLOOD SPECIMEN Performed By: #### 5 8410-2 ####[facility]ORYCLIA [id number] [address] MCH (RBC) [Entitic mass] 27.1 pg Normal 26.0-34.0 [facility] Comment on above: Order Comment: Speci men Type: BLOOD SPECIMEN Performed By: #### 5 8410-2 ####[facility]ORYCLIA [id number] [address] MCHC (RBC) [Mass/Vol] 29.3 g/dL Low 30.5-36.0 [facility] Comment on above: Order Comment: Speci men Type: BLOOD SPECIMEN Performed By: #### 5 8410-2 ####[facility]ORYCLIA [id number] [address] MCV (RBC) [Entitic vol] 92.6 fL Normal 80.0-100.0 [facility] Comment on above: Order Comment: Speci men Type: BLOOD SPECIMEN Performed By: #### 5 8410-2 ####[facility]ORYCLIA [id number] [address] Nucleated RBC (Bld) [#/Vol] 10*3/uL Normal <0.01 [facility] Comment on above: Order Comment: Speci men Type: BLOOD SPECIMEN Performed By: #### 5 8410-2 ####[facility]ORYCLIA [id number] [address] Platelet mean volume (Bld) [Entitic vol] 10.4 fL Normal 9.0-12.7 [facility] Comment on above: Order Comment: Speci men Type: BLOOD SPECIMEN Performed By: #### 5 8410-2 ####[facility]ORYCLIA [id number] [address] Platelets (Bld) [#/Vol] 206 10*3/uL Normal 150-400 [facility] Comment on above: Order Comment: Speci men Type: BLOOD SPECIMEN Performed By: #### 5 8410-2 ####[facility]ORYCLIA [id number] [address] RBC (Bld) [#/Vol] 3.76 10*6/uL Low 4.20-6.00 [facility] Comment on above: Order Comment: Speci men Type: BLOOD SPECIMEN Performed By: #### 5 8410-2 ####[facility]ORYCLIA [id number] [address] WBC (Bld) [#/Vol] 11.36 10*3/uL High 3.70-11.00 [facility] Comment on above: Order Comment: Speci men Type: BLOOD SPECIMEN Performed By: #### 5 8410-2 ####[facility]ORYCLIA [id number] [address] HEPATIC FUNCTION PNLon 06-10 Albumin [Mass/Vol] 3.1 g/dL Low 3.9-4.9 [facility] Comment on above: Order Comment: Speci men Type: BLOOD SPECIMEN Performed By: #### 2 777-1, 54291-9, , HFP ####[facility]ORYCLIA [id number] [address] ALP [Catalytic activity/Vol] 73 U/L Normal 38-113 [facility] Comment on above: Order Comment: Speci men Type: BLOOD SPECIMEN Performed By: #### 2 777-1, 47748-3, , HFP ####[facility]ORYCLIA [id number] [address] OF [facility] ALT With P-5'-P [Catalytic activity/Vol] 64 U/L High 10-54 [facility] Comment on above: Order Comment: Speci men Type: BLOOD SPECIMEN Performed By: #### 2 777-1, 58582-3, , HFP ####[facility]ORYCLIA [id number] [address] AST With P-5'-P [Catalytic activity/Vol] 44 U/L High 14-40 [facility] Comment on above: Order Comment: Speci men Type: BLOOD SPECIMEN Performed By: #### 2 777-1, 82827-0, , HFP ####[facility] LABORATORYCLIA [id number] [address] Bilirubin [Mass/Vol] 0.5 mg/dL Normal 0.2-1.3 [facility] Comment on above: Order Comment: Speci men Type: BLOOD SPECIMEN Performed By: #### 2 777-1, 42464-7, , HFP ####[facility]ORYCLIA [id number] [address] Bilirubin.conjugated [Mass/Vol] mg/dL Normal <0.2 [facility] Comment on above: Order Comment: Speci men Type: BLOOD SPECIMEN Performed By: #### 2 777-1, 64395-1, , HFP ####[facility]ORYCLIA [id number] [address] OF [facility] Protein [Mass/Vol] 5.7 g/dL Low 6.3-8.0 [facility] Comment on above: Order Comment: Speci men Type: BLOOD SPECIMEN Performed By: #### 2 777-1, 62398-1, , HFP ####[facility]ORYCLIA [id number] [address] LEVETIRACETAMon 06-10-2021 levETIRAcetam [Mass/Vol] 57.7 ug/mL High 12.0-46.0 [facility] Comment on above: Order Comment: Speci men [...] developed and its performance characteristics determined by [facility]'s [facility] Pathology and Laboratory Medicine [place] ([facility]). It has not been cleared or approved by the FDA. [facility] is regulated under CLIA as qualified to perform high complexity testing. This test is used for clinical purposes. It should not be regarded as investigational or for research. Performed By: #### L DARY ####[facility] REFERENCE LABCLIA [id number] [place] [address] [place] Magnesium SerPl-ncon 06-10 Magnesium [Mass/Vol] 2.7 mg/dL High 1.7-2.3 [facility] Comment on above: Order Comment: Speci men Type: BLOOD SPECIMEN Performed By: #### 2 777-1, 14713-8, , [facility] ####[facility]ORATORYCLIA [id number] [place] [address] [place] Phosphate SerPl-ncon 06-10 Phosphate [Mass/Vol] 1.8 mg/dL Low 2.7-4.8 [facility] Comment on above: Order Comment: Speci men Type: BLOOD SPECIMEN Performed By: #### 2 777-1, 20723-5, , [facility] ####[facility]ORATORYCLIA [id number] [place] [address] [place] ALLIED HEALTHon 06-09-2021 ALLIED HEALTH Normal [facility] ALLIED HEALTH Normal [facility] ALLIED HEALTH Normal [facility] ALLIED HEALTH Normal [facility] Basic metabolic 2000 panelon 06-09-2021 Anion gap [Moles/Vol] 8 mmol/L Low 9-18 [facility] Comment on above: Order Comment: Speci men Type: BLOOD SPECIMEN Performed By: #### 2 4321-2, 2776-05, ####[facility]ATORYCLIA [id number] [place], [place] [id number] [place] [address] OF [facility] Calcium [Mass/Vol] 8.3 mg/dL Low 8.5-10.2 [facility] Comment on above: Order Comment: Speci men Type: BLOOD SPECIMEN Performed By: #### 2 4321-2, 2776-05, ####[facility]ORYCLIA [id number] [address] OF [facility] Chloride [Moles/Vol] 116 mmol/L High 97-105 [facility] Comment on above: Order Comment: Speci men Type: BLOOD SPECIMEN Performed By: #### 2 4321-2, 2776-05, ####[facility]ATORYCLIA [id number] [address] STATES [facility] CO2 [Moles/Vol] 27 mmol/L Normal 22-30 [facility] Comment on above: Order Comment: Speci men Type: BLOOD SPECIMEN Performed By: #### 2 4321-2, 2776-05, ####[facility]ORYCLIA [id number] [address] STATES OF [facility] Creatinine [Mass/Vol] 0.70 mg/dL Low 0.73-1.22 [facility] Comment on above: Order Comment: Speci men Type: BLOOD SPECIMEN Performed By: #### 2 4321-2, 2776-05, ####[facility]ATORYCLIA [id number] [place] [address] [place] GFR/1.73 sq M.predicted MDRD (S/P/Bld) [Vol rate/Area] mL/min/{1.73_m2} Normal [facility] Comment on above: Order Comment: Speci men [...] GFR. Performed By: #### 2 4321-2, 2776-05, ####[facility]ORY[facility] [id number] [place] [address] [place] Glucose [Mass/Vol] 123 mg/dL High 74-99 [facility] Comment on above: Order Comment: Speci men Type: BLOOD SPECIMEN Result Comment: The [place] [employer] (ADA) provides guidance for cutoff [...] Standards of Medical Care in Diabetes 2016, [place] [employer]. Diabetes Care. 2016.39(Suppl 1). Performed By: #### 2 432-2, 2776-05, ####[facility]ITAL[facility] [id number] [place] [address] [place] Potassium [Moles/Vol] 3.5 mmol/L Low 3.7-5.1 [facility] Comment on above: Order Comment: Speci men Type: BLOOD SPECIMEN Performed By: #### 2 4321-2, 2776-05, ####[facility]ORYCLIA [id number] [place] [address] [place] Sodium [Moles/Vol] 151 mmol/L High 136-144 [facility] Comment on above: Order Comment: Speci men Type: BLOOD SPECIMEN Performed By: #### 2 4321-2, 2776-1, ####[facility]ORYCL[facility] [id number] [address] Urea nitrogen [Mass/Vol] 39 mg/dL High 9-24 [facility] Comment on above: Order Comment: Speci men Type: BLOOD SPECIMEN Performed By: #### 2 4321-2, 2776-, ####[facility]ATORYCLIA [id number] [address] CBC panel Auto (Bld)on 06-09 Erythrocyte distribution width (RBC) [Ratio] 16.2 % High 11.5-15.0 [facility] Comment on above: Order Comment: Speci men Type: BLOOD SPECIMEN Performed By: #### 5 8410-2 ####[facility]ORYCLIA [id number] [address] Hematocrit (Bld) [Volume fraction] 33.7 % Low 39.0-51.0 [facility] Comment on above: Order Comment: Speci men Type: BLOOD SPECIMEN Performed By: #### 5 8410-2 ####[facility]ORYCLIA [id number] [address] Hemoglobin (Bld) [Mass/Vol] 10.2 g/dL Low 13.0-17.0 [facility] Comment on above: Order Comment: Speci men Type: BLOOD SPECIMEN Performed By: #### 5 8410-2 ####[facility]ATORYCLIA [id number] [address] MCH (RBC) [Entitic mass] 27.4 pg Normal 26.0-34.0 [facility] Comment on above: Order Comment: Speci men Type: BLOOD SPECIMEN Performed By: #### 5 8410-2 ####[facility]ORYCLIA [id number] [address] MCHC (RBC) [Mass/Vol] 30.3 g/dL Low 30.5-36.0 [facility] Comment on above: Order Comment: Speci men Type: BLOOD SPECIMEN Performed By: #### 5 8410-2 ####[facility]ORYCLIA [id number] [address] MCV (RBC) [Entitic vol] 90.6 fL Normal 80.0-100.0 [facility] Comment on above: Order Comment: Speci men Type: BLOOD SPECIMEN Performed By: #### 5 8410-2 ####[facility]ORYCLIA [id number] [address] Nucleated RBC (Bld) [#/Vol] 10*3/uL Normal <0.01 [facility] Comment on above: Order Comment: Speci men Type: BLOOD SPECIMEN Performed By: #### 5 8410-2 ####[facility]ORYCLIA [id number] [address] Platelet mean volume (Bld) [Entitic vol] 10.3 fL Normal 9.0-12.7 [facility] Comment on above: Order Comment: Speci men Type: BLOOD SPECIMEN Performed By: #### 5 8410-2 ####[facility]ORYCLIA [id number] [address] Platelets (Bld) [#/Vol] 219 10*3/uL Normal 150-400 [facility] Comment on above: Order Comment: Speci men Type: BLOOD SPECIMEN Performed By: #### 5 8410-2 ####[facility]ORYCLIA [id number] [address] RBC (Bld) [#/Vol] 3.72 10*6/uL Low 4.20-6.00 [facility] Comment on above: Order Comment: Speci men Type: BLOOD SPECIMEN Performed By: #### 5 8410-2 ####[facility]ORYCLIA [id number] [address] WBC (Bld) [#/Vol] 13.02 10*3/uL High 3.70-11.00 [facility] Comment on above: Order Comment: Speci men Type: BLOOD SPECIMEN Performed By: #### 5 8410-2 ####[facility]ORYCLIA [id number] [address] CONSULT PROGon 06-09-2021 CONSULT PROG Normal [facility] CONSULT PROG Normal [facility] CT BRAIN WO IVCONon 06-09-[address] BRAIN WO IVCON Normal [facility] Magnesium SerPl-mCncon 06-09 Magnesium [Mass/Vol] 2.8 mg/dL High 1.7-2.3 [facility] Comment on above: Order Comment: Speci men Type: BLOOD SPECIMEN Performed By: #### 2 4321-2, 2777-1, 77703-9 ####[facility]ORYCLIA [id number] [address] NURSING PROGon 06-09-2021 NURSING PROG Normal [facility] NUTRITIONon 06-09-2021 NUTRITION Normal [facility] PT EDon 06-09-2021 PT ED Normal [facility] Phosphate SerPl-mCncon 06-09 Phosphate [Mass/Vol] 2.2 mg/dL Low 2.7-4.8 [facility] Comment on above: Order Comment: Speci men Type: BLOOD SPECIMEN Performed By: #### 2 4321-2, 2777-1, ####[facility]ATORYCLIA [id number] [address] Vancomycin random [Mass/Vol] on 06-09-2021 Vancomycin [Mass/Vol] 18.9 ug/mL Normal 10.0-20.0 [facility] Comment on above: Order Comment: Speci men Type: BLOOD SPECIMEN Result Comment: Refe rence ranges and high/low indicator flags are provided as general guidelines only. The treating physician must determine appropriate target levels/dosing based on the specific clinical situation. Performed By: #### 4 091-5 ####[facility]ATORYCLIA [id number] [place] [address] [place] XR ABD 2V SUPINE W UPR/DECUB /CTLon 06-09-2021 XR ABD 2V SUPINE W UPR/DECUB/CTL Normal [facility] XR CHEST 1V FRONTALon 2021 XR CHEST 1V FRONTAL Normal [facility] XR NECK SOFT TISSUE 2V AP/LA Ton 06-09-2021 XR NECK SOFT TISSUE 2V AP/LAT Normal [facility] XR SKULL 2V AP/LATon 022 XR SKULL 2V AP/LAT Normal [facility] ALLIED HEALTHon 06-08-2021 ALLIED HEALTH Normal [facility] ANES POSTPROC EVALon 022 ANES POSTPROC EVAL Normal [facility] ANES PRE-OPon 06-08-2021 ANES PRE-OP Normal [facility] BRIEF OP NOTon 06-08-2021 BRIEF OP NOT Normal [facility] Bacteria Spec Anaerobe Culto n 06-08-2021 Bacteria identified Anaer cx Nom (Unsp spec) ORGANISM ID: 1 Rare Staphylococcus saccharolyticus Identification performed by [facility] See scanned document for susceptibility report Normal [facility] Comment on above: Performed By: #### 6 462-6 635-3 ####[facility]ORYCLIA [id number] [place] [address] [place] Bacteria Wnd Culton 06-08-19 22 Bacteria identified Cx Nom (Wound) CULTURE, INTRAOPERATIVE HARDWARE: No growth 5 days GRAM STAIN: Not performed on specimen type Normal [facility] Comment on above: Performed By: #### 6 462-6 635-3 ####[facility]ATORYCLIA [id number] [place] [address] [place] Basic metabolic 2000 panelon 06-08-2021 Anion gap [Moles/Vol] 9 mmol/L Normal 9-18 [facility] Comment on above: Order Comment: Speci men Type: BLOOD SPECIMEN Performed By: #### 2 4321-2, 2777-1, 99526-5 ####[facility]ATORYCLIA [id number] [address] [place] Calcium [Mass/Vol] 8.7 mg/dL Normal 8.5-10.2 [facility] Comment on above: Order Comment: Speci men Type: BLOOD SPECIMEN Performed By: #### 2 4321-2, 2776-, ####[facility]ATORYCLIA [id number] [address] [place] Chloride [Moles/Vol] 113 mmol/L High 97-105 [facility] Comment on above: Order Comment: Speci men Type: BLOOD SPECIMEN Performed By: #### 2 4321-2, 2776-05, ####[facility]ATORYCLIA [id number] [address] STATES OF [facility] CO2 [Moles/Vol] 26 mmol/L Normal 22-30 [facility] Comment on above: Order Comment: Speci men Type: BLOOD SPECIMEN Performed By: #### 2 4321-2, 2776-05, ####[facility]ATORYCLIA [id number] [address] [place] Creatinine [Mass/Vol] 0.68 mg/dL Low 0.73-1.22 [facility] Comment on above: Order Comment: Speci men Type: BLOOD SPECIMEN Performed By: #### 2 4321-2, 2776-05, ####[facility]ATORYCLIA [id number] [address] [place] GFR/1.73 sq M.predicted MDRD (S/P/Bld) [Vol rate/Area] mL/min/{1.73_m2} Normal [facility] Comment on above: Order Comment: Speci men [...] GFR. Performed By: #### 2 4321-2, 2776-05, ####[facility]ATORYCLIA [id number] [place] [address] [place] Glucose [Mass/Vol] 146 mg/dL High 74-99 [facility] Comment on above: Order Comment: Speci men Type: BLOOD SPECIMEN Result Comment: The [place] [employer] (ADA) provides guidance for cutoff [...] Standards of Medical Care in Diabetes 2016, [place] [employer]. Diabetes Care. 2016.39(Suppl 1). Performed By: #### 2 1-2, 2776-05, ####[facility]ATORYCLIA [id number] [place] [address] [place] Potassium [Moles/Vol] 3.6 mmol/L Low 3.7-5.1 [facility] Comment on above: Order Comment: Speci men Type: BLOOD SPECIMEN Performed By: #### 2 4321-2, 2776-05, ####[facility]ATORYCLIA [id number] [place] [address] [place] Sodium [Moles/Vol] 148 mmol/L High 136-144 [facility] Comment on above: Order Comment: Speci men Type: BLOOD SPECIMEN Performed By: #### 2 1-2, 2776-05, ####[facility]ATORYCLIA [id number] [address] STATES [facility] Urea nitrogen [Mass/Vol] 36 mg/dL High 9-24 [facility] Comment on above: Order Comment: Speci men Type: BLOOD SPECIMEN Performed By: #### 2 4321-2, 2777-1, 82889-7 ####[facility]ORYCLIA [id number] [address] CASE MANAGEMon 06-08-2021 CASE MANAGEM Normal [facility] CBC panel Auto (Bld)on 06-08 Erythrocyte distribution width (RBC) [Ratio] 16.0 % High 11.5-15.0 [facility] Comment on above: Order Comment: Speci men Type: BLOOD SPECIMEN Performed By: #### 5 8410-2 ####[facility]ORYCLIA [id number] [address] Hematocrit (Bld) [Volume fraction] 38.4 % Low 39.0-51.0 [facility] Comment on above: Order Comment: Speci men Type: BLOOD SPECIMEN Performed By: #### 5 8410-2 ####[facility]ORYCLIA [id number] [address] Hemoglobin (Bld) [Mass/Vol] 12.1 g/dL Low 13.0-17.0 [facility] Comment on above: Order Comment: Speci men Type: BLOOD SPECIMEN Performed By: #### 5 8410-2 ####[facility]ORYCLIA [id number] [address] MCH (RBC) [Entitic mass] 28.3 pg Normal 26.0-34.0 [facility] Comment on above: Order Comment: Speci men Type: BLOOD SPECIMEN Performed By: #### 5 8410-2 ####[facility]ORYCLIA [id number] [address] [place] MCHC (RBC) [Mass/Vol] 31.5 g/dL Normal 30.5-36.0 [facility] Comment on above: Order Comment: Speci men Type: BLOOD SPECIMEN Performed By: #### 5 8410-2 ####[facility]ATORYCLIA [id number] [address] MCV (RBC) [Entitic vol] 89.9 fL Normal 80.0-100.0 [facility] Comment on above: Order Comment: Speci men Type: BLOOD SPECIMEN Performed By: #### 5 8410-2 ####[facility]ORYCLIA [id number] [address] Nucleated RBC (Bld) [#/Vol] 10*3/uL Normal <0.01 [facility] Comment on above: Order Comment: Speci men Type: BLOOD SPECIMEN Performed By: #### 5 8410-2 ####[facility]ORYCLIA [id number] [address] Platelet mean volume (Bld) [Entitic vol] 10.3 fL Normal 9.0-12.7 [facility] Comment on above: Order Comment: Speci men Type: BLOOD SPECIMEN Performed By: #### 5 8410-2 ####[facility]ORYCLIA [id number] [address] OF [facility] Platelets (Bld) [#/Vol] 236 10*3/uL Normal 150-400 [facility] Comment on above: Order Comment: Speci men Type: BLOOD SPECIMEN Performed By: #### 5 8410-2 ####[facility]ORYCLIA [id number] [address] RBC (Bld) [#/Vol] 4.27 10*6/uL Normal 4.20-6.00 [facility] Comment on above: Order Comment: Speci men Type: BLOOD SPECIMEN Performed By: #### 5 8410-2 ####[facility]ORYCLIA [id number] [address] [place] WBC (Bld) [#/Vol] 11.06 10*3/uL High 3.70-11.00 [facility] Comment on above: Order Comment: Speci men Type: BLOOD SPECIMEN Performed By: #### 5 8410-2 ####[facility]ORYCLIA [id number] [address] CONSULT PROGon 06-08-2021 CONSULT PROG Normal [facility] CT BRAIN WO IVCONon 06-08-19 CT BRAIN WO IVCON Normal [facility] Magnesium SerPl-mCncon 06-08 Magnesium [Mass/Vol] 2.8 mg/dL High 1.7-2.3 [facility] Comment on above: Order Comment: Speci men Type: BLOOD SPECIMEN Performed By: #### 2 4321-2, 2777-1, 99716-9 ####[facility]ORYCLIA [id number] [address] Microorganism Spec Culton Microorganism identified Cx Nom (Unsp spec) CULTURE, FUNGAL: No Fungus isolated after 28 days FUNGAL SMEAR: No fungus seen [facility] Comment on above: Performed By: #### 1 1475-1 ####[facility]ORYCLIA [id number] [address] NURSING PROGon 06-08-2021 NURSING PROG Normal [facility] OPERATIVE NOon 06-08-2021 OPERATIVE NO Normal [facility] OPERATIVE NO Normal [facility] PT panel Coag (PPP)on 2021 INR Coag (PPP) [Relative time] 1.1 {INR} Normal 0.9-1.3 [facility] Comment on above: Order Comment: Speci men Type: BLOOD SPECIMEN Result Comment: Yris min K Antagonist (VKA) Therapeutic Range: INR 2 to 3 (Target INR of 2.5)Note: For patients treated with VKA drugs, such as warfarin, the [place] [employer] 2012 Guideline recommends [...] al. Chest 2012, 141:7S-47SNishmariangel RA, et al. [facility] 2017, 70: 252-289 Performed By: #### 3 4528-0, 71407-0 ####[facility]ORYCLIA [id number] [address] OF [facility] PT Coag (PPP) [Time] 11.9 s Normal 9.7-13.0 [facility] Comment on above: Order Comment: Speci men Type: BLOOD SPECIMEN Performed By: #### 3 4528-0, 34540-1 ####[facility]ORYCLIA [id number] [address] STATES OF [facility] Phosphate SerPl-mCncon 06-08 Phosphate [Mass/Vol] 2.3 mg/dL Low 2.7-4.8 [facility] Comment on above: Order Comment: Speci men Type: BLOOD SPECIMEN Performed By: #### 2 4321-2, 2777-1, 32250-7 ####[facility]ORYCLIA [id number] [address] aPTT PPPon 06-08-2021 aPTT Coag (PPP) [Time] 24.2 s Normal 23.0-32.4 [facility] Comment on above: Order Comment: Speci men Type: BLOOD SPECIMEN Performed By: #### 3 4528-0, 98171-7 ####[facility]ORYCLIA [id number] [address] OF [facility] ALLIED HEALTHon 06-07-2021 ALLIED HEALTH Normal [facility] ALLIED HEALTH Normal [facility] ALLIED HEALTH Normal [facility] Bacteria CSF Culton 06-07-19 22 Bacteria identified Cx Nom (CSF) CULTURE, CSF: No growth 14 days GRAM STAIN: No organisms seen Rare Mononuclear cells Rare Polymorphonuclear leukocytes Gram stain performed on cytospun specimen. Normal [facility] Comment on above: Performed By: #### 6 06-4 ####[facility]ATORYCLIA [id number] [address] [place] Basic metabolic 2000 panelon 06-07-2021 Anion gap [Moles/Vol] 9 mmol/L Normal 9-18 [facility] Comment on above: Order Comment: Speci men Type: BLOOD SPECIMEN Performed By: #### 1 9123-9, 2777-1, 78092-2 ####[facility]ATORYCLIA [id number] [address] [place] Calcium [Mass/Vol] 8.8 mg/dL Normal 8.5-10.2 [facility] Comment on above: Order Comment: Speci men Type: BLOOD SPECIMEN Performed By: #### 1 9123-9, 2776-1, 97486-1 ####[facility]ATORYCLIA [id number] [address] [place] Chloride [Moles/Vol] 111 mmol/L High 97-105 [facility] Comment on above: Order Comment: Speci men Type: BLOOD SPECIMEN Performed By: #### 1 9123-9, 7-1, 77940-0 ####[facility]ATORYCLIA [id number] [address] [place] CO2 [Moles/Vol] 27 mmol/L Normal 22-30 [facility] Comment on above: Order Comment: Speci men Type: BLOOD SPECIMEN Performed By: #### 1 9123-9, 2777-1, 21567-6 ####[facility]ATORYCLIA [id number] [address] [place] Creatinine [Mass/Vol] 0.66 mg/dL Low 0.73-1.22 [facility] Comment on above: Order Comment: Speci men Type: BLOOD SPECIMEN Performed By: #### 1 9123-9, 2777-1, 51309-8 ####[facility] HOSPITALIA [id number] [place] [address] [place] GFR/1.73 sq M.predicted MDRD (S/P/Bld) [Vol rate/Area] mL/min/{1.73_m2} Normal [facility] Comment on above: Order Comment: Speci men [...] GFR. Performed By: #### 1 9123-9, 2777-, 68006-5 ####[facility] HOSPITALIA [id number] [place] [address] [place] Glucose [Mass/Vol] 123 mg/dL High 74-99 [facility] Comment on above: Order Comment: Speci men Type: BLOOD SPECIMEN Result Comment: The [place] Diabetes Association (ADA) provides guidance for cutoff [...] Standards of Medical Care in Diabetes 2016, [place] [employer]. Diabetes Care. 2016.39(Suppl 1). Performed By: #### 1 9123-9, 2777-1, 79397-8 ####[facility]ATORYIA [id number] [place] [address] [place] Potassium [Moles/Vol] 3.6 mmol/L Low 3.7-5.1 [facility] Comment on above: Order Comment: Speci men Type: BLOOD SPECIMEN Performed By: #### 1 9123-9, 2777, 97044-5 ####[facility]ATORYCLIA [id number] [address] Sodium [Moles/Vol] 147 mmol/L High 136-144 [facility] Comment on above: Order Comment: Speci men Type: BLOOD SPECIMEN Performed By: #### 1 9123-9, 2776-05, 53451-0 ####[facility]ATORYCLIA [id number] [address] Urea nitrogen [Mass/Vol] 30 mg/dL High 9-24 [facility] Comment on above: Order Comment: Speci men Type: BLOOD SPECIMEN Performed By: #### 1 9123-9, 2776-05, 90879-8 ####[facility]ORYCLIA [id number] [address] CBC W Auto Differential pane l (Bld)on 06-07-2021 Basophils (Bld) [#/Vol] 10*3/uL Normal <0.11 [facility] Comment on above: Order Comment: Speci men Type: BLOOD SPECIMEN Performed By: #### 5 7021-8 ####[facility]ATORYCLIA [id number] [address] Basophils/100 WBC (Bld) 0.2 % Normal [facility] Comment on above: Order Comment: Speci men Type: BLOOD SPECIMEN Performed By: #### 5 7021-8 ####[facility]ATORYCLIA [id number] [address] Differential cell count method Nom (Bld) Auto Normal [facility] Comment on above: Order Comment: Speci men Type: BLOOD SPECIMEN Performed By: #### 5 7021-8 ####[facility]ATORYCLIA [id number] [address] Eosinophils (Bld) [#/Vol] 0.06 10*3/uL Normal <0.46 [facility] Comment on above: Order Comment: Speci men Type: BLOOD SPECIMEN Performed By: #### 5 7021-8 ####[facility]ORYCLIA [id number] [address] Eosinophils/100 WBC (Bld) 0.6 % Normal [facility] Comment on above: Order Comment: Speci men Type: BLOOD SPECIMEN Performed By: #### 5 7021-8 ####[facility]ATORYCLIA [id number] [address] Erythrocyte distribution width (RBC) [Ratio] 15.8 % High 11.5-15.0 [facility] Comment on above: Order Comment: Speci men Type: BLOOD SPECIMEN Performed By: #### 5 7021-8 ####[facility]ATORYCLIA [id number] [address] Hematocrit (Bld) [Volume fraction] 40.4 % Normal 39.0-51.0 [facility] Comment on above: Order Comment: Speci men Type: BLOOD SPECIMEN Performed By: #### 5 7021-8 ####[facility]ATORYCLIA [id number] [address] Hemoglobin (Bld) [Mass/Vol] 12.4 g/dL Low 13.0-17.0 [facility] Comment on above: Order Comment: Speci men Type: BLOOD SPECIMEN Performed By: #### 5 7021-8 ####[facility]ATORYCLIA [id number] [address] IMMATURE GRAN % 0.7 % Normal [facility] Comment on above: Order Comment: Speci men Type: BLOOD SPECIMEN Performed By: #### 5 7021-8 ####[facility]ATORYCLIA [id number] [address] IMMATURE GRAN ABS 0.07 k/uL Normal <0.10 [facility] Comment on above: Order Comment: Speci men Type: BLOOD SPECIMEN Performed By: #### 5 7021-8 ####[facility]ATORYCLIA [id number] [address] Lymphocytes (Bld) [#/Vol] 1.43 10*3/uL Normal 1.00-4.00 [facility] Comment on above: Order Comment: Speci men Type: BLOOD SPECIMEN Performed By: #### 5 7021-8 ####[facility]ATORYCLIA [id number] [address] Lymphocytes/100 WBC (Bld) 14.1 % Normal [facility] Comment on above: Order Comment: Speci men Type: BLOOD SPECIMEN Performed By: #### 5 7021-8 ####[facility]ATORYCLIA [id number] [address] MCH (RBC) [Entitic mass] 27.6 pg Normal 26.0-34.0 [facility] Comment on above: Order Comment: Speci men Type: BLOOD SPECIMEN Performed By: #### 5 7021-8 ####[facility]ATORYCLIA [id number] [address] MCHC (RBC) [Mass/Vol] 30.7 g/dL Normal 30.5-36.0 [facility] Comment on above: Order Comment: Speci men Type: BLOOD SPECIMEN Performed By: #### 5 7021-8 ####[facility]ATORYCLIA [id number] [address] MCV (RBC) [Entitic vol] 89.8 fL Normal 80.0-100.0 [facility] Comment on above: Order Comment: Speci men Type: BLOOD SPECIMEN Performed By: #### 5 7021-8 ####[facility]ATORYCLIA [id number] [address] Monocytes (Bld) [#/Vol] 0.82 10*3/uL Normal <0.87 [facility] Comment on above: Order Comment: Speci men Type: BLOOD SPECIMEN Performed By: #### 5 7021-8 ####[facility]ATORYCLIA [id number] [address] Monocytes/100 WBC (Bld) 8.1 % Normal [facility] Comment on above: Order Comment: Speci men Type: BLOOD SPECIMEN Performed By: #### 5 7021-8 ####[facility]ATORYCLIA [id number] [address] Neutrophils (Bld) [#/Vol] 7.74 10*3/uL High 1.45-7.50 [facility] Comment on above: Order Comment: Speci men Type: BLOOD SPECIMEN Performed By: #### 5 7021-8 ####[facility]ATORYCLIA [id number] [address] Neutrophils/100 WBC (Bld) 76.3 % Normal [facility] Comment on above: Order Comment: Speci men Type: BLOOD SPECIMEN Performed By: #### 5 7021-8 ####[facility]ATORYCLIA [id number] [address] Nucleated RBC (Bld) [#/Vol] 10*3/uL Normal <0.01 [facility] Comment on above: Order Comment: Speci men Type: BLOOD SPECIMEN Performed By: #### 5 7021-8 ####[facility]ATORYCLIA [id number] [address] Nucleated RBC/100 WBC (Bld) [Ratio] 0.0 /100 WBC Normal 0.0 [facility] Comment on above: Order Comment: Speci men Type: BLOOD SPECIMEN Performed By: #### 5 7021-8 ####[facility]ORATORYCLIA [id number] [address] Platelet mean volume (Bld) [Entitic vol] 10.4 fL Normal 9.0-12.7 [facility] Comment on above: Order Comment: Speci men Type: BLOOD SPECIMEN Performed By: #### 5 7021-8 ####[facility]ATORYCLIA [id number] [address] Platelets (Bld) [#/Vol] 236 10*3/uL Normal 150-400 [facility] Comment on above: Order Comment: Speci men Type: BLOOD SPECIMEN Performed By: #### 5 7021-8 ####[facility]ORYCLIA [id number] [address] RBC (Bld) [#/Vol] 4.50 10*6/uL Normal 4.20-6.00 [facility] Comment on above: Order Comment: Speci men Type: BLOOD SPECIMEN Performed By: #### 5 7021-8 ####[facility]ATORYCLIA [id number] [address] WBC (Bld) [#/Vol] 10.14 10*3/uL Normal 3.70-11.00 [facility] Comment on above: Order Comment: Speci men Type: BLOOD SPECIMEN Performed By: #### 5 7021-8 ####[facility]ATORYCLIA [id number] [address] CBC panel Auto (Bld)on 06-07 Erythrocyte distribution width (RBC) [Ratio] 15.8 % High 11.5-15.0 [facility] Comment on above: Order Comment: Speci men Type: BLOOD SPECIMEN Performed By: #### 5 8410-2 ####[facility]ATORYCLIA [id number] [address] Hematocrit (Bld) [Volume fraction] 40.0 % Normal 39.0-51.0 [facility] Comment on above: Order Comment: Speci men Type: BLOOD SPECIMEN Performed By: #### 5 8410-2 ####[facility]ORYCLIA [id number] [address] Hemoglobin (Bld) [Mass/Vol] 12.3 g/dL Low 13.0-17.0 [facility] Comment on above: Order Comment: Speci men Type: BLOOD SPECIMEN Performed By: #### 5 8410-2 ####[facility]ORYCLIA [id number] [address] MCH (RBC) [Entitic mass] 27.3 pg Normal 26.0-34.0 [facility] Comment on above: Order Comment: Speci men Type: BLOOD SPECIMEN Performed By: #### 5 8410-2 ####[facility] [id number] [address] MCHC (RBC) [Mass/Vol] 30.8 g/dL Normal 30.5-36.0 [facility] Comment on above: Order Comment: Speci men Type: BLOOD SPECIMEN Performed By: #### 5 8410-2 ####[facility]ORYCL[facility] [id number] [address] MCV (RBC) [Entitic vol] 88.7 fL Normal 80.0-100.0 [facility] Comment on above: Order Comment: Speci men Type: BLOOD SPECIMEN Performed By: #### 5 8410-2 ####[facility]ORY[facility] [id number] [address] Nucleated RBC (Bld) [#/Vol] 10*3/uL Normal <0.01 [facility] Comment on above: Order Comment: Speci men Type: BLOOD SPECIMEN Performed By: #### 5 8410-2 ####[facility]ORY[facility] [id number] [address] Platelet mean volume (Bld) [Entitic vol] 10.0 fL Normal 9.0-12.7 [facility] Comment on above: Order Comment: Speci men Type: BLOOD SPECIMEN Performed By: #### 5 8410-2 ####[facility] [id number] [address] Platelets (Bld) [#/Vol] 234 10*3/uL Normal 150-400 [facility] Comment on above: Order Comment: Speci men Type: BLOOD SPECIMEN Performed By: #### 5 8410-2 ####[facility]ORY[facility] [id number] [address] [facility] RBC (Bld) [#/Vol] 4.51 10*6/uL Normal 4.20-6.00 [facility] Comment on above: Order Comment: Speci men Type: BLOOD SPECIMEN Performed By: #### 5 8410-2 ####[facility]ORYCLIA [id number] [address] WBC (Bld) [#/Vol] 11.47 10*3/uL High 3.70-11.00 [facility] Comment on above: Order Comment: Speci men Type: BLOOD SPECIMEN Performed By: #### 5 8410-2 ####[facility]ORYCLIA [id number] [address] CONSULT PROGon 06-07-2021 CONSULT PROG Normal [facility] CONSULT PROG Normal [facility] CSF MANUAL DIFFon 06-07-2021 DIF TTL, CSF 92 cells counted Normal [facility] Comment on above: Order Comment: Speci men Type: CEREBROSPINAL FLUID Performed By: #### 3 4563-7, [id number], [id number] ####[facility]ORYCLIA [id number] [address] EOSIN%, CSF 1 % Normal [facility] Comment on above: Order Comment: Speci men Type: CEREBROSPINAL FLUID Performed By: #### 3 4563-7, [id number], [id number] ####[facility]ORYCLIA [id number] [address] LYMPH%, CSF 21 % Low 50-90 [facility] Comment on above: Order Comment: Speci men Type: CEREBROSPINAL FLUID Performed By: #### 3 4563-7, [id number], [id number] ####[facility]ORYCLIA [id number] [address] MACRO%, CSF 27 % High <1 [facility] Comment on above: Order Comment: Speci men Type: CEREBROSPINAL FLUID Result Comment: Tati ected result: Previously reported as 22 % on 06/07/2021 at 1:49 PM EST. Performed By: #### 3 4563-7, [id number], [id number] ####[facility]ORYCLIA [id number] [address] [place] MONO%, CSF 36 % Normal 10-50 [facility] Comment on above: Order Comment: Speci men Type: CEREBROSPINAL FLUID Performed By: #### 3 4563-7, [id number], [id number] ####[facility]ORYCLIA [id number] [address] NEUT%, CSF 11 % High 0-3 [facility] Comment on above: Order Comment: Speci men Type: CEREBROSPINAL FLUID Performed By: #### 3 4563-7, [id number], [id number] ####[facility]ORYCLIA [id number] [address] OF [facility] OTHER CL%, CSF 4 % Normal [facility] Comment on above: Order Comment: Speci men Type: CEREBROSPINAL FLUID Result Comment: Path review to follow.Corrected result: Previously reported as 10 % on 06/07/2021 at 1:49 PM EST. Performed By: #### 3 4563-7, [id number], [id number] ####[facility]ORYCLIA [id number] [address] CSF PATHOLOGIST INTERP (LAB REFLEX ORDER-NO BILL)on 06-07-2021 CSF STAFF REVIEW Negative for maligna nt cells. Rare immature myeloid or ventricular lining cells. Normal [facility] Comment on above: Order Comment: Speci men Type: CEREBROSPINAL FLUID Performed By: #### 3 4563-7, [id number], [id number] ####[facility]ORYCLIA [id number] [address] Pathologist name Reviewed by Eloise rebolledo MD [facility] Comment on above: Order Comment: Speci men Type: CEREBROSPINAL FLUID Performed By: #### 3 4563-7, [id number], [id number] ####[facility]ORYCLIA [id number] [address] BRAIN WO IVCONon 06-07-19 CT BRAIN WO IVCON Normal [facility] CT BRAIN WO IVCON Normal [facility] Cell count panel (CSF)on Clarity (CSF) Clear Normal Clear [facility] Comment on above: Order Comment: Speci men Type: CEREBROSPINAL FLUID Performed By: #### 3 4563-7, [id number], [id number] ####[facility]ORYCLIA [id number] [address] Clarity (Unsp spec) Not Indicated Normal Clear [facility] Comment on above: Order Comment: Speci men Type: CEREBROSPINAL FLUID Performed By: #### 3 4563-7, PRF1833, QEU5849 ####[facility]ORYCLIA [id number] [address] Color (CSF) Colorless Normal Colorless [facility] Comment on above: Order Comment: Speci men Type: CEREBROSPINAL FLUID Performed By: #### 3 4563-7, [id number], [id number] ####[facility]ORYCLIA [id number] [address] Color (Spun CSF) Not Indicated Normal Colorless [facility] Comment on above: Order Comment: Speci men Type: CEREBROSPINAL FLUID Performed By: #### 3 4563-7, [id number], [id number] ####[facility]ORYCLIA [id number] [address] CSF TUBE NUMBER Sterile Container Normal [facility] Comment on above: Order Comment: Speci men Type: CEREBROSPINAL FLUID Performed By: #### 3 4563-7, [id number], [id number] ####[facility]ORYCLIA [id number] [address] RBC Manual cnt (CSF) [#/Vol] 42 cells/uL High 0-5 [facility] Comment on above: Order Comment: Speci men Type: CEREBROSPINAL FLUID Performed By: #### 3 4563-7, [id number], CTU4822 ####[facility]ORYCLIA [id number] [address] [place] WBC Manual cnt (CSF) [#/Vol] 1 cells/uL Normal 0-5 [facility] Comment on above: Order Comment: Speci men Type: CEREBROSPINAL FLUID Performed By: #### 3 4563-7, [id number], ORM2393 ####[facility]ORYCLIA [id number] [address] Glucose CSF-mCncon 2 Glucose (CSF) [Mass/Vol] 92 mg/dL High 40-70 [facility] Comment on above: Order Comment: Speci men Type: CEREBROSPINAL FLUID Result Comment: Lumb ar CSF glucose values of healthy patients are approximately 60% of the plasma values and must always be compared with a concurrently measured plasma value for adequate clinical interpretation.References: 1. Glucose HK (GLUC3) [package insert V 12.0 [place]]. [employer], [place], [place]. September 2015. 2. Michelle Moore, Loki, H. (2015). Chapter 7: Glucose and Lactate. Marianela Rothman.(eds.), Cerebrospinal Fluid in Clinical Neurology. [place]: [employer]. Performed By: #### 2 880-3, 2342-4 ####[facility]ORYCLIA [id number] [address] [place] Lactate (Bld) [Moles/Vol]on 06-07-2021 Lactate [Moles/Vol] 0.9 mmol/L Normal 0.5-2.2 [facility] Comment on above: Order Comment: Speci men Type: BLOOD SPECIMEN Performed By: #### 3 2693-4 ####[facility]ORYCLIA [id number] [address] [place] Lipase SerPl-cCncon 06-07-19 22 Lipase [Catalytic activity/Vol] 35 U/L Normal 16-61 [facility] Comment on above: Order Comment: Speci men Type: BLOOD SPECIMEN Performed By: #### 3 040-3, PROCAL ####[facility]ORYCLIA [id number] [address] OF [facility] Magnesium SerPl-mCncon 06-07 Magnesium [Mass/Vol] 2.7 mg/dL High 1.7-2.3 [facility] Comment on above: Order Comment: Speci men Type: BLOOD SPECIMEN Performed By: #### 1 9123-9, 2777-1, 24871-8 ####[facility]ORYCLIA [id number] [address] PROCALCITONIN (LAB)on 2021 Procalcitonin [Mass/Vol] 0.13 ng/mL High <0.09 [facility] Comment on above: Order Comment: Speci men Type: BLOOD SPECIMEN Result Comment: For a guided interpretation of test results, please visit the Change in Procalcitonin Calculator, [email or web address]. Performed By: #### 3 040-3, PROCAL ####[facility]ATORYCLIA [id number] [address] [place] Phosphate SerPl-mCncon 06-07 Phosphate [Mass/Vol] 1.9 mg/dL Low 2.7-4.8 [facility] Comment on above: Order Comment: Speci men Type: BLOOD SPECIMEN Performed By: #### 1 9123-9, 2777-1, 51635-2 ####[facility]ORYCLIA [id number] [address] [place] Prot CSF-mCncon 06-07-2021 Protein (CSF) [Mass/Vol] 33 mg/dL Normal 15-45 [facility] Comment on above: Order Comment: Speci men Type: CEREBROSPINAL FLUID Performed By: #### 2 880-3, 2342-4 ####[facility]ORYCLIA [id number] [address] SARS-CoV-2 RNA Resp Ql MEGAN+p robeon 06-07-2021 SARS-CoV-2 (COVID-19) RNA MEGAN+probe Ql (Resp) COVID 19 RESULT: SARS-CoV-2 (Agent of COVID-19) Not Detected by PCR. This test has been authorized by FDA under an Emergency Use Authorization (EUA). Normal [facility] Comment on above: Performed By: #### 9 4500-6 ####[facility]ORYCLIA [id number] [address] TYPE AND SCREENon 06-07-2021 ABO O Normal [facility] Comment on above: Order Comment: Speci men Type: BLOOD SPECIMEN Performed By: #### T SCR ####[facility] BANKCLIA [id number] [address] HISTORICAL AB SCR STATUS Negative [facility] Comment on above: Order Comment: Speci men Type: BLOOD SPECIMEN Performed By: #### T SCR ####[facility] BANKCLIA [id number] [address] Rh Nom (Bld) Positive [facility] Comment on above: Order Comment: Speci men Type: BLOOD SPECIMEN Performed By: #### T SCR ####[facility] BANKCLIA [id number] [address] TYPE AND SCREEN EXPIRATION 06/10/2021 23:59 Normal [facility] Comment on above: Order Comment: Speci men Type: BLOOD SPECIMEN Performed By: #### T SCR ####[facility] BANKCLIA [id number] [address] Vancomycin random [Mass/Vol] on 06-07-2021 Vancomycin [Mass/Vol] 16.5 ug/mL Normal 10.0-20.0 [facility] Comment on above: Order Comment: Speci men Type: BLOOD SPECIMEN Result Comment: Refe rence ranges and high/low indicator flags are provided as general guidelines only. The treating physician must determine appropriate target levels/dosing based on the specific clinical situation. Performed By: #### 4 091-5 ####[facility]ATORYCLIA [id number] [address] STATES OF [facility] XR CHEST 1V FRONTAL PORTon 0 06-07-2021 XR CHEST 1V FRONTAL PORT Normal [facility] Basic metabolic 2000 panelon 06-06-2021 Anion gap [Moles/Vol] 11 mmol/L Normal 9-18 [facility] Comment on above: Order Comment: Speci men Type: BLOOD SPECIMEN Performed By: #### 2 4321-2, , 2776-05 ####[facility]ATORYCLIA [id number] [address] STATES OF [facility] Calcium [Mass/Vol] 8.6 mg/dL Normal 8.5-10.2 [facility] Comment on above: Order Comment: Speci men Type: BLOOD SPECIMEN Performed By: #### 2 4321-2, , 2776-05 ####[facility]ORYCLIA [id number] [address] [place] Chloride [Moles/Vol] 108 mmol/L High 97-105 [facility] Comment on above: Order Comment: Speci men Type: BLOOD SPECIMEN Performed By: #### 2 4321-2, , 2776-05 ####[facility]ORYCLIA [id number] [address] [place] CO2 [Moles/Vol] 25 mmol/L Normal 22-30 [facility] Comment on above: Order Comment: Speci men Type: BLOOD SPECIMEN Performed By: #### 2 4321-2, , 2776-05 ####[facility]ORYCLIA [id number] [address] STATES OF [facility] Creatinine [Mass/Vol] 0.76 mg/dL Normal 0.73-1.22 [facility] Comment on above: Order Comment: Speci men Type: BLOOD SPECIMEN Performed By: #### 2 4321-2, , 2776-05 ####[facility] HOSPITALIA [id number] [place] [address] [place] GFR/1.73 sq M.predicted MDRD (S/P/Bld) [Vol rate/Area] mL/min/{1.73_m2} Normal [facility] Comment on above: Order Comment: Speci men [...] Performed By: #### 2 4321-2, , 2776-05 ####[facility]OSPITALIA [id number] [place] [address] [place] Glucose [Mass/Vol] 116 mg/dL High 74-99 [facility] Comment on above: Order Comment: Speci men Type: BLOOD SPECIMEN Result Comment: The [place] Diabetes Association (ADA) provides guidance for cutoff [...] Standards of Medical Care in Diabetes 2016, [place] [employer]. Diabetes Care. 2016.39(Suppl 1). Performed By: #### 2 4321-2, 71258-9, 2776- ####[facility]ATORYIA [id number] [place], [place] [address] [place] [address] OF [facility] Potassium [Moles/Vol] 3.5 mmol/L Low 3.7-5.1 [facility] Comment on above: Order Comment: Speci men Type: BLOOD SPECIMEN Performed By: #### 2 4321-2, , 2776-05 ####[facility]ATORYCLIA [id number] [place], [place] [id number] [place] [address] STATES [facility] Sodium [Moles/Vol] 144 mmol/L Normal 136-144 [facility] Comment on above: Order Comment: Speci men Type: BLOOD SPECIMEN Performed By: #### 2 4321-2, , 2776-05 ####[facility]ORYCLIA [id number] [address] Urea nitrogen [Mass/Vol] 31 mg/dL High 9-24 [facility] Comment on above: Order Comment: Speci men Type: BLOOD SPECIMEN Performed By: #### 2 4321-2, , 2776-05 ####[facility]ORYCLIA [id number] [address] OF [facility] CASE MANAGEMon 06-06-2021 CASE MANAGEM Normal [facility] CBC panel Auto (Bld)on 06-06 Erythrocyte distribution width (RBC) [Ratio] 15.8 % High 11.5-15.0 [facility] Comment on above: Order Comment: Speci men Type: BLOOD SPECIMEN Performed By: #### 5 8410-2 ####[facility]ORYCLIA [id number] [address] Hematocrit (Bld) [Volume fraction] 39.5 % Normal 39.0-51.0 [facility] Comment on above: Order Comment: Speci men Type: BLOOD SPECIMEN Performed By: #### 5 8410-2 ####[facility]ORYCLIA [id number] [address] STATES OF [facility] Hemoglobin (Bld) [Mass/Vol] 12.2 g/dL Low 13.0-17.0 [facility] Comment on above: Order Comment: Speci men Type: BLOOD SPECIMEN Performed By: #### 5 8410-2 ####[facility]ORYCLIA [id number] [address] MCH (RBC) [Entitic mass] 27.8 pg Normal 26.0-34.0 [facility] Comment on above: Order Comment: Speci men Type: BLOOD SPECIMEN Performed By: #### 5 8410-2 ####[facility]ORYCLIA [id number] [address] MCHC (RBC) [Mass/Vol] 30.9 g/dL Normal 30.5-36.0 [facility] Comment on above: Order Comment: Speci men Type: BLOOD SPECIMEN Performed By: #### 5 8410-2 ####[facility]ATORYCLIA [id number] [address] MCV (RBC) [Entitic vol] 90.0 fL Normal 80.0-100.0 [facility] Comment on above: Order Comment: Speci men Type: BLOOD SPECIMEN Performed By: #### 5 8410-2 ####[facility]ATORYCLIA [id number] [address] Nucleated RBC (Bld) [#/Vol] 10*3/uL Normal <0.01 [facility] Comment on above: Order Comment: Speci men Type: BLOOD SPECIMEN Performed By: #### 5 8410-2 ####[facility]ORYCLIA [id number] [address] Platelet mean volume (Bld) [Entitic vol] 10.4 fL Normal 9.0-12.7 [facility] Comment on above: Order Comment: Speci men Type: BLOOD SPECIMEN Performed By: #### 5 8410-2 ####[facility]ATORYCLIA [id number] [address] Platelets (Bld) [#/Vol] 236 10*3/uL Normal 150-400 [facility] Comment on above: Order Comment: Speci men Type: BLOOD SPECIMEN Performed By: #### 5 8410-2 ####[facility]ORYCLIA [id number] [address] OF [facility] RBC (Bld) [#/Vol] 4.39 10*6/uL Normal 4.20-6.00 [facility] Comment on above: Order Comment: Speci men Type: BLOOD SPECIMEN Performed By: #### 5 8410-2 ####[facility]ORYCLIA [id number] [address] OF [facility] WBC (Bld) [#/Vol] 9.74 10*3/uL Normal 3.70-11.00 [facility] Comment on above: Order Comment: Speci men Type: BLOOD SPECIMEN Performed By: #### 5 8410-2 ####[facility]ORYCLIA [id number] [address] CONSULT PROGon 06-06-2021 CONSULT PROG Normal [facility] CONSULT PROG Normal [facility] Magnesium SerPl-mCncon 06-06 Magnesium [Mass/Vol] 2.5 mg/dL High 1.7-2.3 [facility] Comment on above: Order Comment: Speci men Type: BLOOD SPECIMEN Performed By: #### 2 4321-2, 21881-3, 2777-1 ####[facility]ATORYCLIA [id number] [address] PT panel Coag (PPP)on 2021 INR Coag (PPP) [Relative time] 1.0 {INR} Normal 0.9-1.3 [facility] Comment on above: Order Comment: Speci men Type: BLOOD SPECIMEN Result Comment: Yris min K Antagonist (VKA) Therapeutic Range: INR 2 to 3 (Target INR of 2.5)Note: For patients treated with VKA drugs, such as warfarin, the [place] [employer] 2012 Guideline recommends [...] al. Chest 2012, 141:7S-47SNishmariangel RA, et al. [facility] 2017, 70: 252-289 Performed By: #### 3 4528-0, 50833-5 ####[facility]ORYCLIA [id number] [address] PT Coag (PPP) [Time] 11.4 s Normal 9.7-13.0 [facility] Comment on above: Order Comment: Speci men Type: BLOOD SPECIMEN Performed By: #### 3 4528-0, 53344-6 ####[facility]ATORYCLIA [id number] [address] STATES OF [facility] Phosphate SerPl-mCncon 06-06 Phosphate [Mass/Vol] 2.3 mg/dL Low 2.7-4.8 [facility] Comment on above: Order Comment: Speci men Type: BLOOD SPECIMEN Performed By: #### 2 4321-2, 51774-4, 2777-1 ####[facility]ATORYCLIA [id number] [address] THROMBOGRAPH HEPARINASE PANE Kiel 06-06-2021 Clot angle after addition of heparinase TEG (Bld) [Angle] 70.2 degrees Normal 47.0-74.0 [facility] Comment on above: Order Comment: Speci men Type: BLOOD SPECIMEN Performed By: #### T EGHPP ####[facility]ORYCLIA [id number] [address] Clot Lysis 30 Min post maximum clot amplitude TEG (Bld) [Length fraction] 0.0 % Normal 0.0-8.0 [facility] Comment on above: Order Comment: Speci men Type: BLOOD SPECIMEN Performed By: #### T EGHPP ####[facility]ORYCLIA [id number] [address] Clotting time after addition of heparinase TEG (Bld) 5.7 minutes Normal 4.0-10.0 [facility] Comment on above: Order Comment: Speci men Type: BLOOD SPECIMEN Performed By: #### T EGHPP ####[facility]ATORYCLIA [id number] [address] Coagulation index TEG Qn (Bld) 1.2 Normal -4.6-3.2 [facility] Comment on above: Order Comment: Speci men Type: BLOOD SPECIMEN Result Comment: The Coagulation Index, a secondary parameter, is labeled by the records tech as for "research use only" and is used per the records tech's instructions. Its performance characteristics were determined by [facility] [place] in a manner consistent with CLIA requirements. This test has not been cleared by the U.S. Food and Drug Administration. Performed By: #### T EGHPP ####[facility]ATORYCLIA [id number] [address] Maximum clot firmness after addition of heparinase TEG (Bld) [Length] 64.0 mm Normal 51.0-75.0 [facility] Comment on above: Order Comment: Speci men Type: BLOOD SPECIMEN Performed By: #### T EGHPP ####[facility]ATORYCLIA [id number] [address] STATES OF [facility] Vancomycin random [Mass/Vol] on 06-06-2021 Vancomycin [Mass/Vol] 17.4 ug/mL Normal 10.0-20.0 [facility] Comment on above: Order Comment: Speci men Type: BLOOD SPECIMEN Result Comment: Refe rence ranges and high/low indicator flags are provided as general guidelines only. The treating physician must determine appropriate target levels/dosing based on the specific clinical situation. Performed By: #### 4 091-5 ####[facility]ATORYCLIA [id number] [address] Vancomycin [Mass/Vol] 13.5 ug/mL Normal 10.0-20.0 [facility] Comment on above: Order Comment: Speci men Type: BLOOD SPECIMEN Result Comment: Refe rence ranges and high/low indicator flags are provided as general guidelines only. The treating physician must determine appropriate target levels/dosing based on the specific clinical situation. Performed By: #### 4 091-5 ####[facility]ATORYCLIA [id number] [address] aPTT PPPon 06-06-2021 aPTT Coag (PPP) [Time] 27.8 s Normal 23.0-32.4 [facility] Comment on above: Order Comment: Speci men Type: BLOOD SPECIMEN Performed By: #### 3 4528-0, 27833-6 ####[facility]ATORYCLIA [id number] [address] Basic metabolic 2000 panelon 06-05-2021 Anion gap [Moles/Vol] 11 mmol/L Normal 9-18 [facility] Comment on above: Order Comment: Speci men Type: BLOOD SPECIMEN Performed By: #### 1 9123-9, 98718-4, 2776-05 ####[facility]ATORYCLIA [id number] [address] STATES OF [facility] Calcium [Mass/Vol] 8.6 mg/dL Normal 8.5-10.2 [facility] Comment on above: Order Comment: Speci men Type: BLOOD SPECIMEN Performed By: #### 1 9123-9, 38090-7, 2776- ####[facility]ATORYCLIA [id number] [address] Chloride [Moles/Vol] 108 mmol/L High 97-105 [facility] Comment on above: Order Comment: Speci men Type: BLOOD SPECIMEN Performed By: #### 1 9123-9, 34799-2, 2776- ####[facility]ORATORYCLIA [id number] [place] [address] [place] OF [facility] CO2 [Moles/Vol] 25 mmol/L Normal 22-30 [facility] Comment on above: Order Comment: Speci men Type: BLOOD SPECIMEN Performed By: #### 1 9123-9, 06576-2, 2776-05 ####[facility]ORATORYCLIA [id number] [address] [place] Creatinine [Mass/Vol] 0.77 mg/dL Normal 0.73-1.22 [facility] Comment on above: Order Comment: Speci men Type: BLOOD SPECIMEN Performed By: #### 1 9123-9, 34508-7, 2776-05 ####[facility]ATORYCLIA [id number] [address] [place] GFR/1.73 sq M.predicted MDRD (S/P/Bld) [Vol rate/Area] mL/min/{1.73_m2} Normal [facility] Comment on above: Order Comment: Speci men [...] actual GFR. Performed By: #### 1 9123-9, 29017-7, 2776-05 ####[facility]ATORYCLIA [id number] [address] [place] Glucose [Mass/Vol] 96 mg/dL Normal 74-99 [facility] Comment on above: Order Comment: Speci men Type: BLOOD SPECIMEN Result Comment: The [place] Diabetes Association (ADA) provides guidance for cutoff [...] Standards of Medical Care in Diabetes 2016, [place] [employer]. Diabetes Care. 2016.39(Suppl 1). Performed By: #### 1 9123-9, 31095-4, 2776- ####[facility]ATORYCLIA [id number] [address] STATES OF [facility] Potassium [Moles/Vol] 3.9 mmol/L Normal 3.7-5.1 [facility] Comment on above: Order Comment: Speci men Type: BLOOD SPECIMEN Performed By: #### 1 919, 75439-8, 2776- ####[facility]ATORYCLIA [id number] [address] STATES OF [facility] Sodium [Moles/Vol] 144 mmol/L Normal 136-144 [facility] Comment on above: Order Comment: Speci men Type: BLOOD SPECIMEN Performed By: #### 1 919, 42223-2, 2776-05 ####[facility]ATORYCLIA [id number] [address] Urea nitrogen [Mass/Vol] 26 mg/dL High 9-24 [facility] Comment on above: Order Comment: Speci men Type: BLOOD SPECIMEN Performed By: #### 1 9123-9, 42066-2, 2776- ####[facility]ATORYCLIA [id number] [address] OF [facility] CBC panel Auto (Bld)on 06-05 Erythrocyte distribution width (RBC) [Ratio] 15.9 % High 11.5-15.0 [facility] Comment on above: Order Comment: Speci men Type: BLOOD SPECIMEN Performed By: #### 5 8410-2 ####[facility]ATORYCLIA [id number] [address] Hematocrit (Bld) [Volume fraction] 39.6 % Normal 39.0-51.0 [facility] Comment on above: Order Comment: Speci men Type: BLOOD SPECIMEN Performed By: #### 5 8410-2 ####[facility]ATORYCLIA [id number] [address] Hemoglobin (Bld) [Mass/Vol] 12.3 g/dL Low 13.0-17.0 [facility] Comment on above: Order Comment: Speci men Type: BLOOD SPECIMEN Performed By: #### 5 8410-2 ####[facility]ORATORYCLIA [id number] [address] MCH (RBC) [Entitic mass] 28.1 pg Normal 26.0-34.0 [facility] Comment on above: Order Comment: Speci men Type: BLOOD SPECIMEN Performed By: #### 5 8410-2 ####[facility]ATORYCLIA [id number] [address] MCHC (RBC) [Mass/Vol] 31.1 g/dL Normal 30.5-36.0 [facility] Comment on above: Order Comment: Speci men Type: BLOOD SPECIMEN Performed By: #### 5 8410-2 ####[facility]ORATORYCLIA [id number] [address] MCV (RBC) [Entitic vol] 90.4 fL Normal 80.0-100.0 [facility] Comment on above: Order Comment: Speci men Type: BLOOD SPECIMEN Performed By: #### 5 8410-2 ####[facility]ATORYCLIA [id number] [address] Nucleated RBC (Bld) [#/Vol] 10*3/uL Normal <0.01 [facility] Comment on above: Order Comment: Speci men Type: BLOOD SPECIMEN Performed By: #### 5 8410-2 ####[facility]ATORYCLIA [id number] [address] Platelet mean volume (Bld) [Entitic vol] 10.5 fL Normal 9.0-12.7 [facility] Comment on above: Order Comment: Speci men Type: BLOOD SPECIMEN Performed By: #### 5 8410-2 ####[facility]ORYCLIA [id number] [address] OF [facility] Platelets (Bld) [#/Vol] 224 10*3/uL Normal 150-400 [facility] Comment on above: Order Comment: Speci men Type: BLOOD SPECIMEN Performed By: #### 5 8410-2 ####[facility]ORYCLIA [id number] [address] RBC (Bld) [#/Vol] 4.38 10*6/uL Normal 4.20-6.00 [facility] Comment on above: Order Comment: Speci men Type: BLOOD SPECIMEN Performed By: #### 5 8410-2 ####[facility]ORYCLIA [id number] [address] WBC (Bld) [#/Vol] 9.66 10*3/uL Normal 3.70-11.00 [facility] Comment on above: Order Comment: Speci men Type: BLOOD SPECIMEN Performed By: #### 5 8410-2 ####[facility]ORYCLIA [id number] [address] CONSULT PROGon 06-05-2021 CONSULT PROG Normal [facility] Gas and Carbon monoxide pane l (BldV)on 06-05-2021 Base excess Calc (BldV) [Moles/Vol] 1.8 mmol/L Normal 0-2 [facility] Comment on above: Order Comment: Speci men Type: VENOUS BLOOD SPECIMEN Performed By: #### 2 4344-4 ####[facility]ORYCLIA [id number] [address] Body temperature 100.4 [degF] Normal [facility] Comment on above: Order Comment: Speci men Type: VENOUS BLOOD SPECIMEN Performed By: #### 2 4344-4 ####[facility]ORYCLIA [id number] [address] CALCIUM IONIZED, PH CORRECTED 1.21 mmol/L Normal 1.08-1.30 [facility] Comment on above: Order Comment: Speci men Type: VENOUS BLOOD SPECIMEN Performed By: #### 2 4344-4 ####[facility]ORATORYCLIA [id number] [address] Calcium.ionized (BldV) [Mass/Vol] 1.19 mmol/L Normal 1.08-1.30 [facility] Comment on above: Order Comment: Speci men Type: VENOUS BLOOD SPECIMEN Performed By: #### 2 4344-4 ####[facility]ORYCLIA [id number] [address] Carboxyhemoglobin (BldV) [Mass fraction] 1.0 % Normal 0.0-2.0 [facility] Comment on above: Order Comment: Speci men Type: VENOUS BLOOD SPECIMEN Result Comment: Carb oxyhemoglobin Reference Range for Smokers: 2.0-8.0% Performed By: #### 2 4344-4 ####[facility]ORATORYCLIA [id number] [address] CO2 (BldV) [Partial pressure] 41 mm[Hg] Low 42-55 [facility] Comment on above: Order Comment: Speci men Type: VENOUS BLOOD SPECIMEN Performed By: #### 2 4344-4 ####[facility]ATORYCLIA [id number] [address] CO2 [Moles/Vol] 23.4 mmol/L Low 25-29 [facility] Comment on above: Order Comment: Speci men Type: VENOUS BLOOD SPECIMEN Performed By: #### 2 4344-4 ####[facility]ATORYCLIA [id number] [address] CO2 adjusted to patient's actual temperature (BldV) [Partial pressure] 43 mmHg Normal 42-55 [facility] Comment on above: Order Comment: Speci men Type: VENOUS BLOOD SPECIMEN Performed By: #### 2 4344-4 ####[facility]ORYCLIA [id number] [address] Glucose [Mass/Vol] 101 mg/dL Normal 60-105 [facility] Comment on above: Order Comment: Speci men Type: VENOUS BLOOD SPECIMEN Performed By: #### 2 4344-4 ####[facility]ORYCLIA [id number] [address] HCO3 (Bld) [Moles/Vol] 26.0 mmol/L Normal 24-28 [facility] Comment on above: Order Comment: Speci men Type: VENOUS BLOOD SPECIMEN Performed By: #### 2 4344-4 ####[facility]ORYCLIA [id number] [address] OF [facility] Hematocrit (Bld) [Volume fraction] 38.4 % Low 39.0-51.0 [facility] Comment on above: Order Comment: Speci men Type: VENOUS BLOOD SPECIMEN Performed By: #### 2 4344-4 ####[facility]ORYCLIA [id number] [address] Hemoglobin (Bld) [Mass/Vol] 12.5 g/dL Low 13.0-17.0 [facility] Comment on above: Order Comment: Speci men Type: VENOUS BLOOD SPECIMEN Performed By: #### 2 4344-4 ####[facility]ATORYCLIA [id number] [address] Methemoglobin (Bld) [Mass fraction] % Normal 0.0-1.5 [facility] Comment on above: Order Comment: Speci men Type: VENOUS BLOOD SPECIMEN Performed By: #### 2 4344-4 ####[facility]ORATORYCLIA [id number] [address] OF [place] O2 THERAPY Ventilator Normal [facility] Comment on above: Order Comment: Speci men Type: VENOUS BLOOD SPECIMEN Performed By: #### 2 4344-4 ####[facility]ORATORYCLIA [id number] [place], [place] [address] [place] [address] OF [facility] Oxygen (BldV) [Partial pressure] 44 mm[Hg] Normal 35-45 [facility] Comment on above: Order Comment: Speci men Type: VENOUS BLOOD SPECIMEN Performed By: #### 2 4344-4 ####[facility]ORATORYCLIA [id number] [place], [place] [address] [place] [address] Oxygen adjusted to patient's actual temperature (BldV) [Partial pressure] 46.8 mmHg High 35-45 [facility] Comment on above: Order Comment: Speci men Type: VENOUS BLOOD SPECIMEN Performed By: #### 2 4344-4 ####[facility]ATORYCLIA [id number] [place], [place] [address] [place] [address] Oxygen saturation in Blood 76.5 % Normal 60-85 [facility] Comment on above: Order Comment: Speci men Type: VENOUS BLOOD SPECIMEN Performed By: #### 2 4344-4 ####[facility]ATORYCLIA [id number] [place], [place] [address] [place] [address] OF [place] Oxyhemoglobin (BldV) [Mass fraction] 75 % Normal 60-85 [facility] Comment on above: Order Comment: Speci men Type: VENOUS BLOOD SPECIMEN Performed By: #### 2 4344-4 ####[facility]ORATORYCLIA [id number] [place], [place] [address] [place] [address] [place] pH (BldV) 7.42 [pH] Normal 7.32-7.42 [facility] Comment on above: Order Comment: Speci men Type: VENOUS BLOOD SPECIMEN Performed By: #### 2 4344-4 ####[facility]ATORYCLIA [id number] [place], [place] [address] [place] [address] pH adjusted to patient's actual temperature (BldV) 7.40 Normal 7.32-7.42 [facility] Comment on above: Order Comment: Speci men Type: VENOUS BLOOD SPECIMEN Performed By: #### 2 4344-4 ####[facility]ORYCLIA [id number] [address] OF [facility] Potassium [Moles/Vol] 3.7 mmol/L Normal 3.5-5.0 [facility] Comment on above: Order Comment: Speci men Type: VENOUS BLOOD SPECIMEN Performed By: #### 2 4344-4 ####[facility]ATORYCLIA [id number] [address] OF [facility] Sodium [Moles/Vol] 141 mmol/L Normal 136-144 [facility] Comment on above: Order Comment: Speci men Type: VENOUS BLOOD SPECIMEN Performed By: #### 2 4344-4 ####[facility]ORYCLIA [id number] [address] [place] Magnesium SerPl-mCncon 06-05 Magnesium [Mass/Vol] 2.3 mg/dL Normal 1.7-2.3 [facility] Comment on above: Order Comment: Speci men Type: BLOOD SPECIMEN Performed By: #### 1 9123-9, 99073-9, 2777-1 ####[facility]ORYCLIA [id number] [address] [place] Phosphate SerPl-mCncon 06-05 Phosphate [Mass/Vol] 2.9 mg/dL Normal 2.7-4.8 [facility] Comment on above: Order Comment: Speci men Type: BLOOD SPECIMEN Performed By: #### 1 9123-9, 47221-2, 2777-1 ####[facility]ATORYCLIA [id number] [place] [address] [place] Vancomycin random [Mass/Vol] on 06-05-2021 Vancomycin [Mass/Vol] 23.2 ug/mL High 10.0-20.0 [facility] Comment on above: Order Comment: Speci men Type: BLOOD SPECIMEN Result Comment: Refe rence ranges and high/low indicator flags are provided as general guidelines only. The treating physician must determine appropriate target levels/dosing based on the specific clinical situation. Performed By: #### 4 091-5 ####[facility]ATORYCLIA [id number] [place] [address] [place] (1,3)-Q-C-JAAOIHsa 2 (1,3) B-D GLUCAN <31 Normal <60 [facility] Comment on above: Order Comment: Speci men Type: BLOOD SPECIMEN Performed By: #### B DGLUC ####[facility] REFERENCE LABCLIA [id number] [place] [address] [place] (1,3) B-D GLUCAN, QUAL Negative Normal NEGAT [facility] Comment on above: Order Comment: Speci men Type: BLOOD SPECIMEN Result Comment: Cert ain fungi, such as the genus Cryptococcus which produces very low levels of (1,3)-qwux-M-mbwmul, may not result in serum (1,3)-tmmj-V-vveqva sufficiently elevated so as to be detected by the assay. Infections with fungi of the order Mucorales such as Absidia, Mucor and Rhizopus which are not known to produce (1,3)-fcsl-S-nnltsh, are also observed to yield low serum (1,3)-iibd-R-wbzjhw titers.In addition, the yeast phase of Blastomyces dermatitidis produces little (1,3)-oprf-C-qireum and may not be detected by the assay. Performed By: #### B DGLUC ####[facility] LAB REFERENCE LABCLIA [id number] [place] [facility] PhysicsL[facility] [place] [id number] [place] ALLIED HEALTHon 06-04-2021 ALLIED HEALTH Normal [facility] ALLIED HEALTH Normal [facility] ARTERIAL BLOOD GASESon 06-04 Base excess Calc (Bld) [Moles/Vol] 3 mmol/L High 0-2 [facility] Comment on above: Order Comment: Speci men Type: ARTERIAL BLOOD SPECIMEN Performed By: #### A LLBG ####[facility]ATORYCLIA [id number] [place] [address] [place] Body temperature 98.06 [degF] Normal [facility] Comment on above: Order Comment: Speci men Type: ARTERIAL BLOOD SPECIMEN Performed By: #### A LLBG ####[facility]ORATORYCLIA [id number] [address] CALCIUM IONIZED, PH CORRECTED 1.19 mmol/L Normal 1.08-1.30 [facility] Comment on above: Order Comment: Speci men Type: ARTERIAL BLOOD SPECIMEN Performed By: #### A LLBG ####[facility]ATORYCLIA [id number] [address] Calcium.ionized (BldV) [Mass/Vol] 1.14 mmol/L Normal 1.08-1.30 [facility] Comment on above: Order Comment: Speci men Type: ARTERIAL BLOOD SPECIMEN Performed By: #### A LLBG ####[facility]ORYCLIA [id number] [address] Carboxyhemoglobin (BldA) [Mass fraction] 1.2 % Normal 0.0-2.0 [facility] Comment on above: Order Comment: Speci men Type: ARTERIAL BLOOD SPECIMEN Result Comment: Carb oxyhemoglobin Reference Range for Smokers: 2.0-8.0% Performed By: #### A LLBG ####[facility]ORATORYCLIA [id number] [address] CO2 (Bld) [Partial pressure] 35 mm Hg Low 36-46 [facility] Comment on above: Order Comment: Speci men Type: ARTERIAL BLOOD SPECIMEN Performed By: #### A LLBG ####[facility]ORATORYCLIA [id number] [address] CO2 [Moles/Vol] 23.2 mmol/L Normal 22-28 [facility] Comment on above: Order Comment: Speci men Type: ARTERIAL BLOOD SPECIMEN Performed By: #### A LLBG ####[facility]ORATORYCLIA [id number] [address] CO2 adjusted to patient's actual temperature (Bld) [Partial pressure] 34 mmHg Low 36-46 [facility] Comment on above: Order Comment: Speci men Type: ARTERIAL BLOOD SPECIMEN Performed By: #### A LLBG ####[facility]ORATORYCLIA [id number] [address] Glucose [Mass/Vol] 115 mg/dL High 60-105 [facility] Comment on above: Order Comment: Speci men Type: ARTERIAL BLOOD SPECIMEN Performed By: #### A LLBG ####[facility]ATORYCLIA [id number] [address] HCO3 (Bld) [Moles/Vol] 26 mmol/L Normal 22-26 [facility] Comment on above: Order Comment: Speci men Type: ARTERIAL BLOOD SPECIMEN Performed By: #### A LLBG ####[facility]ATORYCLIA [id number] [address] Hematocrit (Bld) [Volume fraction] 35.3 % Low 39.0-51.0 [facility] Comment on above: Order Comment: Speci men Type: ARTERIAL BLOOD SPECIMEN Performed By: #### A LLBG ####[facility]ATORYCLIA [id number] [address] Hemoglobin (Bld) [Mass/Vol] 11.5 g/dL Low 13.0-17.0 [facility] Comment on above: Order Comment: Speci men Type: ARTERIAL BLOOD SPECIMEN Performed By: #### A LLBG ####[facility]ATORYCLIA [id number] [address] Methemoglobin (Bld) [Mass fraction] % Normal 0.0-1.5 [facility] Comment on above: Order Comment: Speci men Type: ARTERIAL BLOOD SPECIMEN Performed By: #### A LLBG ####[facility]ORYCLIA [id number] [address] O2 THERAPY Ventilator Normal [facility] Comment on above: Order Comment: Speci men Type: ARTERIAL BLOOD SPECIMEN Performed By: #### A LLBG ####[facility]ORATORYCLIA [id number] [place], [place] [address] [place] [address] Oxygen (Bld) [Partial pressure] 66 mm Hg Low 85-95 [facility] Comment on above: Order Comment: Speci men Type: ARTERIAL BLOOD SPECIMEN Performed By: #### A LLBG ####[facility]ATORYCLIA [id number] [address] Oxygen adjusted to patient's actual temperature (Bld) [Partial pressure] 64.3 mmHg Low 85-95 [facility] Comment on above: Order Comment: Speci men Type: ARTERIAL BLOOD SPECIMEN Performed By: #### A LLBG ####[facility]ORATORYCLIA [id number] [address] OXYGEN SATURATION, ARTERIAL 95 % Normal 95-98 [facility] Comment on above: Order Comment: Speci men Type: ARTERIAL BLOOD SPECIMEN Performed By: #### A LLBG ####[facility]ATORYCLIA [id number] [address] Oxyhemoglobin (BldA) [Mass fraction] 93 % Low 95-98 [facility] Comment on above: Order Comment: Speci men Type: ARTERIAL BLOOD SPECIMEN Performed By: #### A LLBG ####[facility]ORYCLIA [id number] [address] pH (Bld) 7.49 [pH] High 7.35-7.45 [facility] Comment on above: Order Comment: Speci men Type: ARTERIAL BLOOD SPECIMEN Performed By: #### A LLBG ####[facility]ATORYCLIA [id number] [address] pH adjusted to patient's actual temperature (Bld) 7.49 High 7.35-7.45 [facility] Comment on above: Order Comment: Speci men Type: ARTERIAL BLOOD SPECIMEN Performed By: #### A LLBG ####[facility]ATORYCLIA [id number] [address] Potassium [Moles/Vol] 2.8 mmol/L Low 3.5-5.0 [facility] Comment on above: Order Comment: Speci men Type: ARTERIAL BLOOD SPECIMEN Performed By: #### A LLBG ####[facility]ATORYCLIA [id number] [address] Bas Metab 2000 Pnl SerPlon 0 06-04-2021 Sodium [Moles/Vol] 143 mmol/L Normal 136-144 [facility] Comment on above: Order Comment: Speci men Type: BLOOD SPECIMEN Performed By: #### 2 777-1, , ####[facility]ORYCLIA [id number] [address] Order Comment: Speci men Type: ARTERIAL BLOOD SPECIMEN Performed By: #### A LLBG ####[facility]ORYCLIA [id number] [address] Basic metabolic 2000 panelon 06-04-2021 Anion gap [Moles/Vol] 11 mmol/L Normal 9-18 [facility] Comment on above: Order Comment: Speci men Type: BLOOD SPECIMEN Performed By: #### 2 777-1, , ####[facility]ATORYCLIA [id number] [address] Calcium [Mass/Vol] 8.5 mg/dL Normal 8.5-10.2 [facility] Comment on above: Order Comment: Speci men Type: BLOOD SPECIMEN Performed By: #### 2 777-1, , 97055-9 ####[facility]ATORYCLIA [id number] [address] Chloride [Moles/Vol] 107 mmol/L High 97-105 [facility] Comment on above: Order Comment: Speci men Type: BLOOD SPECIMEN Performed By: #### 2 777-1, , 31133-6 ####[facility]ORATORYCLIA [id number] [place], [place] [address] [place] [address] OF [facility] CO2 [Moles/Vol] 25 mmol/L Normal 22-30 [facility] Comment on above: Order Comment: Speci men Type: BLOOD SPECIMEN Performed By: #### 2 777-1, , ####[facility]ORYCLIA [id number] [address] [place] Creatinine [Mass/Vol] 0.77 mg/dL Normal 0.73-1.22 [facility] Comment on above: Order Comment: Speci men Type: BLOOD SPECIMEN Performed By: #### 2 777-1, , ####[facility]ORYCLIA [id number] [address] GFR/1.73 sq M.predicted MDRD (S/P/Bld) [Vol rate/Area] mL/min/{1.73_m2} Normal [facility] Comment on above: Order Comment: Speci men [...] GFR. Performed By: #### 2 777-1, , ####[facility]ORYCLIA [id number] [address] [place] Glucose [Mass/Vol] 107 mg/dL High 74-99 [facility] Comment on above: Order Comment: Speci men Type: BLOOD SPECIMEN Result Comment: The [place] [employer] (ADA) provides guidance for cutoff [...] Standards of Medical Care in Diabetes 2016, [place] [employer]. Diabetes Care. 2016.39(Suppl 1). Performed By: #### 2 777-1, , ####[facility]ORYCLIA [id number] [address] STATES OF [facility] Potassium [Moles/Vol] 3.1 mmol/L Low 3.7-5.1 [facility] Comment on above: Order Comment: Speci men Type: BLOOD SPECIMEN Performed By: #### 2 777-1, , ####[facility]ORYCLIA [id number] [address] Urea nitrogen [Mass/Vol] 19 mg/dL Normal 9-24 [facility] Comment on above: Order Comment: Speci men Type: BLOOD SPECIMEN Performed By: #### 2 777-1, , ####[facility]ORYCLIA [id number] [address] CBC panel Auto (Bld)on 06-04 Erythrocyte distribution width (RBC) [Ratio] 15.8 % High 11.5-15.0 [facility] Comment on above: Order Comment: Speci men Type: BLOOD SPECIMEN Performed By: #### 5 8410-2 ####[facility]ORYCLIA [id number] [address] Hematocrit (Bld) [Volume fraction] 36.9 % Low 39.0-51.0 [facility] Comment on above: Order Comment: Speci men Type: BLOOD SPECIMEN Performed By: #### 5 8410-2 ####[facility]ORYCLIA [id number] [address] Hemoglobin (Bld) [Mass/Vol] 11.2 g/dL Low 13.0-17.0 [facility] Comment on above: Order Comment: Speci men Type: BLOOD SPECIMEN Performed By: #### 5 8410-2 ####[facility]ORYCLIA [id number] [address] MCH (RBC) [Entitic mass] 27.3 pg Normal 26.0-34.0 [facility] Comment on above: Order Comment: Speci men Type: BLOOD SPECIMEN Performed By: #### 5 8410-2 ####[facility]ORYCLIA [id number] [address] MCHC (RBC) [Mass/Vol] 30.4 g/dL Low 30.5-36.0 [facility] Comment on above: Order Comment: Speci men Type: BLOOD SPECIMEN Performed By: #### 5 8410-2 ####[facility]ORYCLIA [id number] [address] MCV (RBC) [Entitic vol] 89.8 fL Normal 80.0-100.0 [facility] Comment on above: Order Comment: Speci men Type: BLOOD SPECIMEN Performed By: #### 5 8410-2 ####[facility]ORYCLIA [id number] [address] Nucleated RBC (Bld) [#/Vol] 10*3/uL Normal <0.01 [facility] Comment on above: Order Comment: Speci men Type: BLOOD SPECIMEN Performed By: #### 5 8410-2 ####[facility]ORYCLIA [id number] [address] Platelet mean volume (Bld) [Entitic vol] 10.7 fL Normal 9.0-12.7 [facility] Comment on above: Order Comment: Speci men Type: BLOOD SPECIMEN Performed By: #### 5 8410-2 ####[facility]ORYCLIA [id number] [address] Platelets (Bld) [#/Vol] 174 10*3/uL Normal 150-400 [facility] Comment on above: Order Comment: Speci men Type: BLOOD SPECIMEN Performed By: #### 5 8410-2 ####[facility]ORYCLIA [id number] [address] RBC (Bld) [#/Vol] 4.11 10*6/uL Low 4.20-6.00 [facility] Comment on above: Order Comment: Speci men Type: BLOOD SPECIMEN Performed By: #### 5 8410-2 ####[facility]ORYCLIA [id number] [address] WBC (Bld) [#/Vol] 8.29 10*3/uL Normal 3.70-11.00 [facility] Comment on above: Order Comment: Speci men Type: BLOOD SPECIMEN Performed By: #### 5 8410-2 ####[facility]ORYCLIA [id number] [address] CONSULT PROGon 06-04-2021 CONSULT PROG Normal [facility] CT BRAIN WO IVCONon 06-04-[address] BRAIN WO IVCON Normal [facility] CT CHEST W IVCON PEon 2021 CT CHEST W IVCON PE Normal [facility] Magnesium SerPl-mCncon 06-04 Magnesium [Mass/Vol] 2.2 mg/dL Normal 1.7-2.3 [facility] Comment on above: Order Comment: Speci men Type: BLOOD SPECIMEN Performed By: #### 2 777-1, 36151-7, 84583-2 ####[facility]ORYCLIA [id number] [address] NT-proBNP SerPl-mCncon 06-04 Natriuretic peptide.B prohormone N-Terminal [Mass/Vol] 229 pg/mL High <125 [facility] Comment on above: Order Comment: Speci men Type: BLOOD SPECIMEN Performed By: #### 3 3762-6, 4091-5 ####[facility]ATORYCLIA [id number] [place] [address] [place] Phosphate SerPl-mCncon 06-04 Phosphate [Mass/Vol] 2.0 mg/dL Low 2.7-4.8 [facility] Comment on above: Order Comment: Speci men Type: BLOOD SPECIMEN Performed By: #### 2 777-1, 45644-3, 81488-8 ####[facility]ATORYCLIA [id number] [address] [place] Vancomycin random [Mass/Vol] on 06-04-2021 Vancomycin [Mass/Vol] 35.2 ug/mL High 10.0-20.0 [facility] Comment on above: Order Comment: Speci men Type: BLOOD SPECIMEN Result Comment: Refe rence ranges and high/low indicator flags are provided as general guidelines only. The treating physician must determine appropriate target levels/dosing based on the specific clinical situation. Performed By: #### 3 3762-6, 4091-5 ####[facility]ATORYCLIA [id number] [address] [place] XR ABDOMEN 1V SUPINEon 06-04 XR ABDOMEN 1V SUPINE Normal [facility] ALLIED HEALTHon 06-03-2021 ALLIED HEALTH Normal [facility] ARTERIAL BLOOD GASESon 06-03 Base excess Calc (Bld) [Moles/Vol] 5 mmol/L High 0-2 [facility] Comment on above: Order Comment: Speci men Type: ARTERIAL BLOOD SPECIMEN Performed By: #### A LLBG ####[facility]ORYCLIA [id number] [address] [place] Body temperature 99.5 [degF] Normal [facility] Comment on above: Order Comment: Speci men Type: ARTERIAL BLOOD SPECIMEN Performed By: #### A LLBG ####[facility]ORYCLIA [id number] [address] [place] CALCIUM IONIZED, PH CORRECTED 1.18 mmol/L Normal 1.08-1.30 [facility] Comment on above: Order Comment: Speci men Type: ARTERIAL BLOOD SPECIMEN Performed By: #### A LLBG ####[facility]ORYCLIA [id number] [address] Calcium.ionized (BldV) [Mass/Vol] 1.16 mmol/L Normal 1.08-1.30 [facility] Comment on above: Order Comment: Speci men Type: ARTERIAL BLOOD SPECIMEN Performed By: #### A LLBG ####[facility]ORYCLIA [id number] [address] OF [facility] Carboxyhemoglobin (BldA) [Mass fraction] 1.2 % Normal 0.0-2.0 [facility] Comment on above: Order Comment: Speci men Type: ARTERIAL BLOOD SPECIMEN Result Comment: Carb oxyhemoglobin Reference Range for Smokers: 2.0-8.0% Performed By: #### A LLBG ####[facility]ORYCLIA [id number] [address] CO2 (Bld) [Partial pressure] 45 mm Hg Normal 36-46 [facility] Comment on above: Order Comment: Speci men Type: ARTERIAL BLOOD SPECIMEN Performed By: #### A LLBG ####[facility]ORYCLIA [id number] [address] [place] CO2 [Moles/Vol] 26.9 mmol/L Normal 22-28 [facility] Comment on above: Order Comment: Speci men Type: ARTERIAL BLOOD SPECIMEN Performed By: #### A LLBG ####[facility]ORYCLIA [id number] [address] [place] CO2 adjusted to patient's actual temperature (Bld) [Partial pressure] 47 mmHg High 36-46 [facility] Comment on above: Order Comment: Speci men Type: ARTERIAL BLOOD SPECIMEN Performed By: #### A LLBG ####[facility]ORATORYCLIA [id number] [address] [place] Glucose [Mass/Vol] 141 mg/dL High 60-105 [facility] Comment on above: Order Comment: Speci men Type: ARTERIAL BLOOD SPECIMEN Performed By: #### A LLBG ####[facility]ATORYCLIA [id number] [place] HCO3 (Bld) [Moles/Vol] 30 mmol/L High 22-26 [facility] Comment on above: Order Comment: Speci men Type: ARTERIAL BLOOD SPECIMEN Performed By: #### A LLBG ####[facility]ORATORYCLIA [id number] OF [facility] Hematocrit (Bld) [Volume fraction] 35.8 % Low 39.0-51.0 [facility] Comment on above: Order Comment: Speci men Type: ARTERIAL BLOOD SPECIMEN Performed By: #### A LLBG ####[facility]ATORYCLIA [id number] [address] OF [facility] Hemoglobin (Bld) [Mass/Vol] 11.6 g/dL Low 13.0-17.0 [facility] Comment on above: Order Comment: Speci men Type: ARTERIAL BLOOD SPECIMEN Performed By: #### A LLBG ####[facility]ATORYCLIA [id number] [address] Methemoglobin (Bld) [Mass fraction] % Normal 0.0-1.5 [facility] Comment on above: Order Comment: Speci men Type: ARTERIAL BLOOD SPECIMEN Performed By: #### A LLBG ####[facility]ATORYCLIA [id number] [address] [place] O2 THERAPY Ventilator Normal [facility] Comment on above: Order Comment: Speci men Type: ARTERIAL BLOOD SPECIMEN Performed By: #### A LLBG ####[facility]ATORYCLIA [id number] [address] Oxygen (Bld) [Partial pressure] 69 mm Hg Low 85-95 [facility] Comment on above: Order Comment: Speci men Type: ARTERIAL BLOOD SPECIMEN Performed By: #### A LLBG ####[facility]ORATORYCLIA [id number] [address] Oxygen adjusted to patient's actual temperature (Bld) [Partial pressure] 70.8 mmHg Low 85-95 [facility] Comment on above: Order Comment: Speci men Type: ARTERIAL BLOOD SPECIMEN Performed By: #### A LLBG ####[facility]ORATORYCLIA [id number] [address] OXYGEN SATURATION, ARTERIAL 94 % Low 95-98 [facility] Comment on above: Order Comment: Speci men Type: ARTERIAL BLOOD SPECIMEN Performed By: #### A LLBG ####[facility]ORYCLIA [id number] [address] Oxyhemoglobin (BldA) [Mass fraction] 93 % Low 95-98 [facility] Comment on above: Order Comment: Speci men Type: ARTERIAL BLOOD SPECIMEN Performed By: #### A LLBG ####[facility]ATORYCLIA [id number] [address] [place] pH (Bld) 7.43 [pH] Normal 7.35-7.45 [facility] Comment on above: Order Comment: Speci men Type: ARTERIAL BLOOD SPECIMEN Performed By: #### A LLBG ####[facility]ORYCLIA [id number] [address] pH adjusted to patient's actual temperature (Bld) 7.43 Normal 7.35-7.45 [facility] Comment on above: Order Comment: Speci men Type: ARTERIAL BLOOD SPECIMEN Performed By: #### A LLBG ####[facility]ORYCLIA [id number] [address] OF [place] Potassium [Moles/Vol] 3.1 mmol/L Low 3.5-5.0 [facility] Comment on above: Order Comment: Speci men Type: ARTERIAL BLOOD SPECIMEN Performed By: #### A LLBG ####[facility]ORATORYCLIA [id number] [place] [address] [place] Sodium [Moles/Vol] 145 mmol/L High 136-144 [facility] Comment on above: Order Comment: Speci men Type: ARTERIAL BLOOD SPECIMEN Performed By: #### A LLBG ####[facility]ATORYCLIA [id number] [place] [address] [place] ASPERGILLUS GALACTOMANNAN SE RUMon 06-03-2021 Galactomannan Ag IA Ql Negative Normal NEGAT [facility] Comment on above: Order Comment: [...] is suspected. Performed By: #### A SGALS ####[facility] LAB REFERENCE LABCLIA [id number] [place] [address] [place] Galactomannan Ag IA Qn <0.50 Normal [facility] Comment on above: Order Comment: Speci men Type: BLOOD SPECIMEN Result Comment: Inde x Values are Interpreted as Follows:Negative specimens <0.50Positive specimens >=0.50 Performed By: #### A SGALS ####[facility] LAB REFERENCE LABCLIA [id number] [place] [facility] [place] [id number] [place] Basic metabolic 2000 panelon 06-03-2021 Anion gap [Moles/Vol] 8 mmol/L Low 9-18 [facility] Comment on above: Order Comment: Speci men Type: BLOOD SPECIMEN Performed By: #### 1 9123-9, 2777-1, 92480-4 ####[facility]ORYCLIA [id number] [address] [place] Calcium [Mass/Vol] 8.0 mg/dL Low 8.5-10.2 [facility] Comment on above: Order Comment: Speci men Type: BLOOD SPECIMEN Performed By: #### 1 9123-9, 27711-04, 80113-1 ####[facility]ATORYCLIA [id number] [address] Chloride [Moles/Vol] 110 mmol/L High 97-105 [facility] Comment on above: Order Comment: Speci men Type: BLOOD SPECIMEN Performed By: #### 1 9123-9, 27711-04, 61197-0 ####[facility]ORYCLIA [id number] [address] CO2 [Moles/Vol] 28 mmol/L Normal 22-30 [facility] Comment on above: Order Comment: Speci men Type: BLOOD SPECIMEN Performed By: #### 1 9123-9, 27711-04, ####[facility]ORYCLIA [id number] [address] Creatinine [Mass/Vol] 0.75 mg/dL Normal 0.73-1.22 [facility] Comment on above: Order Comment: Speci men Type: BLOOD SPECIMEN Performed By: #### 1 9123-9, 2776-05, ####[facility]ATORYCLIA [id number] [address] GFR/1.73 sq M.predicted MDRD (S/P/Bld) [Vol rate/Area] mL/min/{1.73_m2} Normal [facility] Comment on above: Order Comment: Speci men [...] GFR. Performed By: #### 1 9123-9, 2776-05, 66427-5 ####[facility]ATORYCLIA [id number] [place] [address] [place] Glucose [Mass/Vol] 141 mg/dL High 74-99 [facility] Comment on above: Order Comment: Speci men Type: BLOOD SPECIMEN Result Comment: The [place] Diabetes Association (ADA) provides guidance for cutoff [...] Standards of Medical Care in Diabetes 2016, [place] [employer]. Diabetes Care. 2016.39(Suppl 1). Performed By: #### 1 9123-9, 27711-04, 07447-4 ####[facility]ATORYCLIA [id number] [place] [address] [place] Potassium [Moles/Vol] 3.3 mmol/L Low 3.7-5.1 [facility] Comment on above: Order Comment: Speci men Type: BLOOD SPECIMEN Performed By: #### 1 9123-9, 27711-04, 38718-3 ####[facility]ATORYCLIA [id number] [address] [place] Sodium [Moles/Vol] 146 mmol/L High 136-144 [facility] Comment on above: Order Comment: Speci men Type: BLOOD SPECIMEN Performed By: #### 1 9123-9, 27711-04, 48807-7 ####[facility]ATORYCLIA [id number] [address] [place] Urea nitrogen [Mass/Vol] 10 mg/dL Normal 9-24 [facility] Comment on above: Order Comment: Speci men Type: BLOOD SPECIMEN Performed By: #### 1 9123-9, 2771, 67486-3 ####[facility]ATORYCLIA [id number] [address] CASE MANAGEMon 06-03-2021 CASE MANAGEM Normal [facility] CBC panel Auto (Bld)on 06-03 Erythrocyte distribution width (RBC) [Ratio] 15.6 % High 11.5-15.0 [facility] Comment on above: Order Comment: Speci men Type: BLOOD SPECIMEN Performed By: #### 5 8410-2 ####[facility]ATORYCLIA [id number] [address] Hematocrit (Bld) [Volume fraction] 36.9 % Low 39.0-51.0 [facility] Comment on above: Order Comment: Speci men Type: BLOOD SPECIMEN Performed By: #### 5 8410-2 ####[facility]ATORYCLIA [id number] [address] Hemoglobin (Bld) [Mass/Vol] 11.1 g/dL Low 13.0-17.0 [facility] Comment on above: Order Comment: Speci men Type: BLOOD SPECIMEN Performed By: #### 5 8410-2 ####[facility]ATORYCLIA [id number] [address] MCH (RBC) [Entitic mass] 27.0 pg Normal 26.0-34.0 [facility] Comment on above: Order Comment: Speci men Type: BLOOD SPECIMEN Performed By: #### 5 8410-2 ####[facility]ATORYCLIA [id number] [address] MCHC (RBC) [Mass/Vol] 30.1 g/dL Low 30.5-36.0 [facility] Comment on above: Order Comment: Speci men Type: BLOOD SPECIMEN Performed By: #### 5 8410-2 ####[facility]ATORYCLIA [id number] [address] MCV (RBC) [Entitic vol] 89.8 fL Normal 80.0-100.0 [facility] Comment on above: Order Comment: Speci men Type: BLOOD SPECIMEN Performed By: #### 5 8410-2 ####[facility]ATORYCLIA [id number] [address] Nucleated RBC (Bld) [#/Vol] 10*3/uL Normal <0.01 [facility] Comment on above: Order Comment: Speci men Type: BLOOD SPECIMEN Performed By: #### 5 8410-2 ####[facility] LABORATORYCLIA [id number] [address] Platelet mean volume (Bld) [Entitic vol] 10.5 fL Normal 9.0-12.7 [facility] Comment on above: Order Comment: Speci men Type: BLOOD SPECIMEN Performed By: #### 5 8410-2 ####[facility]ATORYCLIA [id number] [address] Platelets (Bld) [#/Vol] 196 10*3/uL Normal 150-400 [facility] Comment on above: Order Comment: Speci men Type: BLOOD SPECIMEN Performed By: #### 5 8410-2 ####[facility]ATORYCLIA [id number] [address] RBC (Bld) [#/Vol] 4.11 10*6/uL Low 4.20-6.00 [facility] Comment on above: Order Comment: Speci men Type: BLOOD SPECIMEN Performed By: #### 5 8410-2 ####[facility] LABORATORYCLIA [id number] [address] WBC (Bld) [#/Vol] 8.18 10*3/uL Normal 3.70-11.00 [facility] Comment on above: Order Comment: Speci men Type: BLOOD SPECIMEN Performed By: #### 5 8410-2 ####[facility]ATORYCLIA [id number] [address] CONSULTon 06-03-2021 CONSULT Normal [facility] CONSULT PROGon 06-03-2021 CONSULT PROG Normal [facility] Gas and Carbon monoxide pane l (BldV)on 06-03-2021 Base excess Calc (BldV) [Moles/Vol] 1.4 mmol/L Normal 0-2 [facility] Comment on above: Order Comment: Speci men Type: VENOUS BLOOD SPECIMEN Performed By: #### 2 4344-4 ####[facility]ATORYCLIA [id number] [address] Body temperature 98.42 [degF] Normal [facility] Comment on above: Order Comment: Speci men Type: VENOUS BLOOD SPECIMEN Performed By: #### 2 4344-4 ####[facility]ATORYCLIA [id number] [address] CALCIUM IONIZED, PH CORRECTED 1.09 mmol/L Normal 1.08-1.30 [facility] Comment on above: Order Comment: Speci men Type: VENOUS BLOOD SPECIMEN Performed By: #### 2 4344-4 ####[facility]ATORYCLIA [id number] [address] STATES [facility] Calcium.ionized (BldV) [Mass/Vol] 1.12 mmol/L Normal 1.08-1.30 [facility] Comment on above: Order Comment: Speci men Type: VENOUS BLOOD SPECIMEN Performed By: #### 2 4344-4 ####[facility]ATORYCLIA [id number] [address] STATES OF [facility] Carboxyhemoglobin (BldV) [Mass fraction] 1.7 % Normal 0.0-2.0 [facility] Comment on above: Order Comment: Speci men Type: VENOUS BLOOD SPECIMEN Result Comment: Carb oxyhemoglobin Reference Range for Smokers: 2.0-8.0% Performed By: #### 2 4344-4 ####[facility]ORYCLIA [id number] [address] OF [facility] CO2 (BldV) [Partial pressure] 50 mm[Hg] Normal 42-55 [facility] Comment on above: Order Comment: Speci men Type: VENOUS BLOOD SPECIMEN Performed By: #### 2 4344-4 ####[facility]ORATORYCLIA [id number] [place], [place] [address] [place] [address] CO2 [Moles/Vol] 24.9 mmol/L Low 25-29 [facility] Comment on above: Order Comment: Speci men Type: VENOUS BLOOD SPECIMEN Performed By: #### 2 4344-4 ####[facility]ORATORYCLIA [id number] [address] CO2 adjusted to patient's actual temperature (BldV) [Partial pressure] 50 mmHg Normal 42-55 [facility] Comment on above: Order Comment: Speci men Type: VENOUS BLOOD SPECIMEN Performed By: #### 2 4344-4 ####[facility]ORATORYCLIA [id number] [address] FIO2 30 % Normal [facility] Comment on above: Order Comment: Speci men Type: VENOUS BLOOD SPECIMEN Performed By: #### 2 4344-4 ####[facility]ORATORYCLIA [id number] [place], [place] [address] [place] [address] [place] OF [facility] Glucose [Mass/Vol] 191 mg/dL High 60-105 [facility] Comment on above: Order Comment: Speci men Type: VENOUS BLOOD SPECIMEN Performed By: #### 2 4344-4 ####[facility]ORATORYCLIA [id number] [address] [place] HCO3 (Bld) [Moles/Vol] 27.1 mmol/L Normal 24-28 [facility] Comment on above: Order Comment: Speci men Type: VENOUS BLOOD SPECIMEN Performed By: #### 2 4344-4 ####[facility]ATORYCLIA [id number] [address] Hematocrit (Bld) [Volume fraction] 36.2 % Low 39.0-51.0 [facility] Comment on above: Order Comment: Speci men Type: VENOUS BLOOD SPECIMEN Performed By: #### 2 4344-4 ####[facility]ORATORYCLIA [id number] [place], [place] [address] [place] [address] [place] Hemoglobin (Bld) [Mass/Vol] 11.8 g/dL Low 13.0-17.0 [facility] Comment on above: Order Comment: Speci men Type: VENOUS BLOOD SPECIMEN Performed By: #### 2 4344-4 ####[facility] LABORATORYCLIA [id number] [address] INHALED TIDAL VOLUME (ML) 530 Normal [facility] Comment on above: Order Comment: Speci men Type: VENOUS BLOOD SPECIMEN Performed By: #### 2 4344-4 ####[facility]ATORYCLIA [id number] [address] Methemoglobin (Bld) [Mass fraction] % Normal 0.0-1.5 [facility] Comment on above: Order Comment: Speci men Type: VENOUS BLOOD SPECIMEN Performed By: #### 2 4344-4 ####[facility]ATORYCLIA [id number] [address] O2 THERAPY Ventilator Normal [facility] Comment on above: Order Comment: Speci men Type: VENOUS BLOOD SPECIMEN Performed By: #### 2 4344-4 ####[facility]ATORYCLIA [id number] [address] Oxygen (BldV) [Partial pressure] 69 mm[Hg] High 35-45 [facility] Comment on above: Order Comment: Speci men Type: VENOUS BLOOD SPECIMEN Performed By: #### 2 4344-4 ####[facility]ATORYCLIA [id number] [address] Oxygen adjusted to patient's actual temperature (BldV) [Partial pressure] 68.8 mmHg High 35-45 [facility] Comment on above: Order Comment: Speci men Type: VENOUS BLOOD SPECIMEN Performed By: #### 2 4344-4 ####[facility]ORATORYCLIA [id number] [place] [address] [place] Oxygen saturation in Blood 92.4 % High 60-85 [facility] Comment on above: Order Comment: Speci men Type: VENOUS BLOOD SPECIMEN Performed By: #### 2 4344-4 ####[facility]ORATORYCLIA [id number] [place], [place] [address] [place] [address] [place] Oxyhemoglobin (BldV) [Mass fraction] 90 % High 60-85 [facility] Comment on above: Order Comment: Speci men Type: VENOUS BLOOD SPECIMEN Performed By: #### 2 4344-4 ####[facility]ORATORYCLIA [id number] [place], [place] [address] [place] [address] [place] PEEP/CPAP 8 cmH2O Normal [facility] Comment on above: Order Comment: Speci men Type: VENOUS BLOOD SPECIMEN Performed By: #### 2 4344-4 ####[facility]ORATORYCLIA [id number] [place], [place] [address] [place] [address] OF [facility] pH (BldV) 7.35 [pH] Normal 7.32-7.42 [facility] Comment on above: Order Comment: Speci men Type: VENOUS BLOOD SPECIMEN Performed By: #### 2 4344-4 ####[facility]ATORYCLIA [id number] [address] pH adjusted to patient's actual temperature (BldV) 7.35 Normal 7.32-7.42 [facility] Comment on above: Order Comment: Speci men Type: VENOUS BLOOD SPECIMEN Performed By: #### 2 4344-4 ####[facility]ATORYCLIA [id number] [place], [place] [address] [place] [address] [place] Potassium [Moles/Vol] 3.6 mmol/L Normal 3.5-5.0 [facility] Comment on above: Order Comment: Speci men Type: VENOUS BLOOD SPECIMEN Performed By: #### 2 4344-4 ####[facility]ORATORYCLIA [id number] [address] SET VENTILATOR RESPIRATORY RATE (BPM) 18 BPM Normal [facility] Comment on above: Order Comment: Speci men Type: VENOUS BLOOD SPECIMEN Performed By: #### 2 4344-4 ####[facility]ORYCLIA [id number] [address] Sodium [Moles/Vol] 141 mmol/L Normal 136-144 [facility] Comment on above: Order Comment: Speci men Type: VENOUS BLOOD SPECIMEN Performed By: #### 2 4344-4 ####[facility]ATORYCLIA [id number] [address] HIV 1+2 Ab IA Qlon 2 HIV 1 and 2 Ab IA.rapid Nom Normal [facility] Comment on above: Order Comment: Speci men Type: BLOOD SPECIMEN Result Comment: Test not indicated. Performed By: #### 3 1201-7, TOXMG ####[facility]ATORYCLIA [id number] [address] HIV 1+2 Ab+HIV1 p24 Ag IA Ql Non-Reactive Normal Nonreactive [facility] Comment on above: Order Comment: Speci men Type: BLOOD SPECIMEN Result Comment: [place] Rev. Code 3701.243(E): This information has been [...] diagnoses. Performed By: #### 3 1201-7, TOXMG ####[facility]ATORYCLIA [id number] [address] HIVINT Normal [facility] Comment on above: Order Comment: Speci men Type: BLOOD SPECIMEN Result Comment: No e vidence of HIV-1 or HIV-2 infection. Should recent infection be suspected, repeat testing may be considered 2-3 weeks after this draw. Performed By: #### 3 1201-7, TOXMG ####[facility]ATORYCLIA [id number] [address] Magnesium SerPl-mCncon 06-03 Magnesium [Mass/Vol] 1.9 mg/dL Normal 1.7-2.3 [facility] Comment on above: Order Comment: Speci men Type: BLOOD SPECIMEN Performed By: #### 1 9123-9, 2777-1, 11009-3 ####[facility]ORATORYCLIA [id number] [place] [address] [place] NUTRITIONon 06-03-2021 NUTRITION Normal [facility] Phosphate SerPl-mCncon 06-03 Phosphate [Mass/Vol] 1.9 mg/dL Low 2.7-4.8 [facility] Comment on above: Order Comment: Speci men Type: BLOOD SPECIMEN Performed By: #### 1 9123-9, 2777-1, 71209-8 ####[facility]ATORYCLIA [id number] [address] TOXOPLASMOSIS IGM AND IGG AB on 06-03-2021 TOXO IGG QUAL Negative Normal Negative [facility] Comment on above: Order Comment: Speci men Type: BLOOD SPECIMEN Result Comment: No s erological evidence of past exposure to Toxoplasma gondii. Cannot exclude recent infection if the specimen collected within 3-4 weeks after infection.Negative <6.4 IU/mLEquivocal 6.4-9.9 IU/mLPositive >=10.0 IU/mL Performed By: #### 3 1201-7, TOXMG ####[facility]ATORYCLIA [id number] [address] TOXO IGM QUAL Negative Normal Negative [facility] Comment on above: Order Comment: Speci men Type: BLOOD SPECIMEN Result Comment: No s erological evidence of recent exposure to Toxoplasma gondii.Negative <0.9 IndexEquivocal 0.9-0.99 IndexPositive >=1.0 Index Performed By: #### 3 1201-7, TOXMG ####[facility]ORATORYCLIA [id number] [place] [address] [place] US DVT LOWER BILon 2 US DVT LOWER RAINER Normal [facility] XR CHEST 1V FRONTALon 2021 XR CHEST 1V FRONTAL Normal [facility] ARTERIAL BLOOD GASESon 06-02 Base excess Calc (Bld) [Moles/Vol] 2 mmol/L Normal 0-2 [facility] Comment on above: Order Comment: Speci men Type: ARTERIAL BLOOD SPECIMEN Performed By: #### A LLBG ####[facility]ATORYCLIA [id number] [address] Body temperature 99.32 [degF] Normal [facility] Comment on above: Order Comment: Speci men Type: ARTERIAL BLOOD SPECIMEN Performed By: #### A LLBG ####[facility]ATORYCLIA [id number] [address] CALCIUM IONIZED, PH CORRECTED 1.15 mmol/L Normal 1.08-1.30 [facility] Comment on above: Order Comment: Speci men Type: ARTERIAL BLOOD SPECIMEN Performed By: #### A LLBG ####[facility]ORATORYCLIA [id number] [address] STATES [facility] Calcium.ionized (BldV) [Mass/Vol] 1.13 mmol/L Normal 1.08-1.30 [facility] Comment on above: Order Comment: Speci men Type: ARTERIAL BLOOD SPECIMEN Performed By: #### A LLBG ####[facility]ATORYCLIA [id number] [address] Carboxyhemoglobin (BldA) [Mass fraction] 1.4 % Normal 0.0-2.0 [facility] Comment on above: Order Comment: Speci men Type: ARTERIAL BLOOD SPECIMEN Result Comment: Carb oxyhemoglobin Reference Range for Smokers: 2.0-8.0% Performed By: #### A LLBG ####[facility]ATORYCLIA [id number] [address] CO2 (Bld) [Partial pressure] 39 mm Hg Normal 36-46 [facility] Comment on above: Order Comment: Speci men Type: ARTERIAL BLOOD SPECIMEN Performed By: #### A LLBG ####[facility]ORATORYCLIA [id number] [address] CO2 [Moles/Vol] 23.4 mmol/L Normal 22-28 [facility] Comment on above: Order Comment: Speci men Type: ARTERIAL BLOOD SPECIMEN Performed By: #### A LLBG ####[facility]ORATORYCLIA [id number] [address] CO2 adjusted to patient's actual temperature (Bld) [Partial pressure] 40 mmHg Normal 36-46 [facility] Comment on above: Order Comment: Speci men Type: ARTERIAL BLOOD SPECIMEN Performed By: #### A LLBG ####[facility]ATORYCLIA [id number] [address] Glucose [Mass/Vol] 156 mg/dL High 60-105 [facility] Comment on above: Order Comment: Speci men Type: ARTERIAL BLOOD SPECIMEN Performed By: #### A LLBG ####[facility]ORATORYCLIA [id number] [address] HCO3 (Bld) [Moles/Vol] 26 mmol/L Normal 22-26 [facility] Comment on above: Order Comment: Speci men Type: ARTERIAL BLOOD SPECIMEN Performed By: #### A LLBG ####[facility]ORATORYCLIA [id number] [address] Hematocrit (Bld) [Volume fraction] 33.9 % Low 39.0-51.0 [facility] Comment on above: Order Comment: Speci men Type: ARTERIAL BLOOD SPECIMEN Performed By: #### A LLBG ####[facility]ATORYCLIA [id number] [address] Hemoglobin (Bld) [Mass/Vol] 11.0 g/dL Low 13.0-17.0 [facility] Comment on above: Order Comment: Speci men Type: ARTERIAL BLOOD SPECIMEN Performed By: #### A LLBG ####[facility]ORATORYCLIA [id number] [address] [place] Methemoglobin (Bld) [Mass fraction] % Normal 0.0-1.5 [facility] Comment on above: Order Comment: Speci men Type: ARTERIAL BLOOD SPECIMEN Performed By: #### A LLBG ####[facility]ATORYCLIA [id number] [address] O2 THERAPY Ventilator Normal [facility] Comment on above: Order Comment: Speci men Type: ARTERIAL BLOOD SPECIMEN Performed By: #### A LLBG ####[facility]ATORYCLIA [id number] [address] Oxygen (Bld) [Partial pressure] 70 mm Hg Low 85-95 [facility] Comment on above: Order Comment: Speci men Type: ARTERIAL BLOOD SPECIMEN Performed By: #### A LLBG ####[facility]ATORYCLIA [id number] [address] Oxygen adjusted to patient's actual temperature (Bld) [Partial pressure] 72.2 mmHg Low 85-95 [facility] Comment on above: Order Comment: Speci men Type: ARTERIAL BLOOD SPECIMEN Performed By: #### A LLBG ####[facility] LABORATORYCLIA [id number] [address] OXYGEN SATURATION, ARTERIAL 96 % Normal 95-98 [facility] Comment on above: Order Comment: Speci men Type: ARTERIAL BLOOD SPECIMEN Performed By: #### A LLBG ####[facility]ORYCLIA [id number] [address] Oxyhemoglobin (BldA) [Mass fraction] 94 % Low 95-98 [facility] Comment on above: Order Comment: Speci men Type: ARTERIAL BLOOD SPECIMEN Performed By: #### A LLBG ####[facility]ORATORYCLIA [id number] [address] pH (Bld) 7.43 [pH] Normal 7.35-7.45 [facility] Comment on above: Order Comment: Speci men Type: ARTERIAL BLOOD SPECIMEN Performed By: #### A LLBG ####[facility]ORYCLIA [id number] [address] pH adjusted to patient's actual temperature (Bld) 7.42 Normal 7.35-7.45 [facility] Comment on above: Order Comment: Speci men Type: ARTERIAL BLOOD SPECIMEN Performed By: #### A LLBG ####[facility]ATORYCLIA [id number] [address] Potassium [Moles/Vol] 2.6 mmol/L Low 3.5-5.0 [facility] Comment on above: Order Comment: Speci men Type: ARTERIAL BLOOD SPECIMEN Performed By: #### A LLBG ####[facility]ATORYCLIA [id number] [address] Sodium [Moles/Vol] 142 mmol/L Normal 136-144 [facility] Comment on above: Order Comment: Speci men Type: ARTERIAL BLOOD SPECIMEN Performed By: #### A LLBG ####[facility]ATORYCLIA [id number] [address] [place] Ammonia Plas-sCncon 06-02-19 22 Ammonia (P) [Moles/Vol] 20 umol/L Normal 16-60 [facility] Comment on above: Order Comment: Speci men Type: BLOOD SPECIMEN Performed By: #### 1 [id number] ####[facility]ATORYCLIA [id number] [address] [place] Bacteria CSF Culton 06-02-19 22 Bacteria identified Cx Nom (CSF) CULTURE, CSF: No growth 14 days GRAM STAIN: No organisms seen Rare Polymorphonuclear leukocytes Gram stain performed on cytospun specimen. Normal [facility] Comment on above: Performed By: #### 6 06-4 ####[facility]ATORYCLIA [id number] [address] [place] Basic metabolic 2000 panelon 06-02-2021 Anion gap [Moles/Vol] 10 mmol/L Normal 9-18 [facility] Comment on above: Order Comment: Speci men Type: BLOOD SPECIMEN Performed By: #### 2 4321-2, , 2776-05 ####[facility]ORY[facility]IA [id number] [address] STATES OF [facility] Calcium [Mass/Vol] 8.1 mg/dL Low 8.5-10.2 [facility] Comment on above: Order Comment: Speci men Type: BLOOD SPECIMEN Performed By: #### 2 4321-2, , 2776-05 ####[facility]ORYCLIA [id number] [address] [place] Chloride [Moles/Vol] 108 mmol/L High 97-105 [facility] Comment on above: Order Comment: Speci men Type: BLOOD SPECIMEN Performed By: #### 2 4321-2, , 2776-05 ####[facility]ORYCLIA [id number] [address] [place] CO2 [Moles/Vol] 24 mmol/L Normal 22-30 [facility] Comment on above: Order Comment: Speci men Type: BLOOD SPECIMEN Performed By: #### 2 1-2, , 2776-05 ####[facility]ORYCLIA [id number] [address] [place] Creatinine [Mass/Vol] 0.78 mg/dL Normal 0.73-1.22 [facility] Comment on above: Order Comment: Speci men Type: BLOOD SPECIMEN Performed By: #### 2 4321-2, , 2776-05 ####[facility]ORYCLIA [id number] [place] [address] [place] GFR/1.73 sq M.predicted MDRD (S/P/Bld) [Vol rate/Area] mL/min/{1.73_m2} Normal [facility] Comment on above: Order Comment: Speci men Type: BLOOD SPECIMEN Result Comment: >60e GFR (Estimated GFR) Units of measure: mL/min/1.73 meters squaredeGFR is derived from the reexpressed MDRD Study equation using the following parameters: serum creatinine, age, gender and race. The creatinine assay has been calibrated to be traceable to [employer]. An eGFR <60 mL/min/1.73m2 for >3 months is consistent with chronic kidney disease. Refer to KDOQI guidelines for clinical interpretation. In patients with unstable renal function, e.g. those with acute kidney injury, the eGFR may not accurately reflect actual GFR. Performed By: #### 2 4321-2, , 2776-05 ####[facility]ORYCLIA [id number] [place] [address] [place] Glucose [Mass/Vol] 162 mg/dL High 74-99 [facility] Comment on above: Order Comment: Speci men Type: BLOOD SPECIMEN Result Comment: The [place] Diabetes Association (ADA) provides guidance for cutoff [...] Standards of Medical Care in Diabetes 2016, [place] [employer]. Diabetes Care. 2016.39(Suppl 1). Performed By: #### 2 4321-2, , 2776-05 ####[facility]ORYCLIA [id number] [place] [id number] [place] Potassium [Moles/Vol] 2.7 mmol/L Low 3.7-5.1 [facility] Comment on above: Order Comment: Speci men Type: BLOOD SPECIMEN Performed By: #### 2 4321-2, , 2776-05 ####[facility]ATORYCLIA [id number] [place] [address] [place] Sodium [Moles/Vol] 142 mmol/L Normal 136-144 [facility] Comment on above: Order Comment: Speci men Type: BLOOD SPECIMEN Performed By: #### 2 4321-2, , 2776-05 ####[facility]ORYCLIA [id number] [address] Urea nitrogen [Mass/Vol] 12 mg/dL Normal 9-24 [facility] Comment on above: Order Comment: Speci men Type: BLOOD SPECIMEN Performed By: #### 2 4321-2, , 2776-05 ####[facility]ORYCLIA [id number] [address] CBC panel Auto (Bld)on 06-02 Erythrocyte distribution width (RBC) [Ratio] 15.0 % Normal 11.5-15.0 [facility] Comment on above: Order Comment: Speci men Type: BLOOD SPECIMEN Performed By: #### 5 8410-2 ####[facility]ORYCLIA [id number] [address] Hematocrit (Bld) [Volume fraction] 34.3 % Low 39.0-51.0 [facility] Comment on above: Order Comment: Speci men Type: BLOOD SPECIMEN Performed By: #### 5 8410-2 ####[facility]ORYCLIA [id number] [address] Hemoglobin (Bld) [Mass/Vol] 10.3 g/dL Low 13.0-17.0 [facility] Comment on above: Order Comment: Speci men Type: BLOOD SPECIMEN Performed By: #### 5 8410-2 ####[facility]ORYCLIA [id number] [address] MCH (RBC) [Entitic mass] 27.0 pg Normal 26.0-34.0 [facility] Comment on above: Order Comment: Speci men Type: BLOOD SPECIMEN Performed By: #### 5 8410-2 ####[facility]ORYCLIA [id number] [address] MCHC (RBC) [Mass/Vol] 30.0 g/dL Low 30.5-36.0 [facility] Comment on above: Order Comment: Speci men Type: BLOOD SPECIMEN Performed By: #### 5 8410-2 ####[facility]ORYCLIA [id number] [address] MCV (RBC) [Entitic vol] 90.0 fL Normal 80.0-100.0 [facility] Comment on above: Order Comment: Speci men Type: BLOOD SPECIMEN Performed By: #### 5 8410-2 ####[facility]ORYCLIA [id number] [address] Nucleated RBC (Bld) [#/Vol] 10*3/uL Normal <0.01 [facility] Comment on above: Order Comment: Speci men Type: BLOOD SPECIMEN Performed By: #### 5 8410-2 ####[facility]ORYCLIA [id number] [address] Platelet mean volume (Bld) [Entitic vol] 10.2 fL Normal 9.0-12.7 [facility] Comment on above: Order Comment: Speci men Type: BLOOD SPECIMEN Performed By: #### 5 8410-2 ####[facility]ORYCLIA [id number] [address] Platelets (Bld) [#/Vol] 194 10*3/uL Normal 150-400 [facility] Comment on above: Order Comment: Speci men Type: BLOOD SPECIMEN Performed By: #### 5 8410-2 ####[facility]ORYCLIA [id number] [address] RBC (Bld) [#/Vol] 3.81 10*6/uL Low 4.20-6.00 [facility] Comment on above: Order Comment: Speci men Type: BLOOD SPECIMEN Performed By: #### 5 8410-2 ####[facility]ATORYCLIA [id number] [place] [address] [place] WBC (Bld) [#/Vol] 9.22 10*3/uL Normal 3.70-11.00 [facility] Comment on above: Order Comment: Speci men Type: BLOOD SPECIMEN Performed By: #### 5 8410-2 ####[facility]ORYCLIA [id number] [address] [place] CONSULT PROGon 06-02-2021 CONSULT PROG Normal [facility] CSF MANUAL DIFFon 06-02-2021 DIF TTL, CSF 25 cells counted Normal [facility] Comment on above: Order Comment: Speci men Type: CEREBROSPINAL FLUID Performed By: #### 3 4563-7, [id number], [id number] ####[facility]ORYCLIA [id number] [address] [place] LYMPH%, CSF 4 % Low 50-90 [facility] Comment on above: Order Comment: Speci men Type: CEREBROSPINAL FLUID Performed By: #### 3 4563-7, [id number], [id number] ####[facility]ORYCLIA [id number] [address] [place] MACRO%, CSF 4 % High <1 [facility] Comment on above: Order Comment: Speci men Type: CEREBROSPINAL FLUID Performed By: #### 3 4563-7, [id number], [id number] ####[facility]ORYCLIA [id number] [address] [place] MONO%, CSF 20 % Normal 10-50 [facility] Comment on above: Order Comment: Speci men Type: CEREBROSPINAL FLUID Performed By: #### 3 4563-7, [id number], [id number] ####[facility]ORYCLIA [id number] [address] [place] NEUT%, CSF 72 % High 0-3 [facility] Comment on above: Order Comment: Speci men Type: CEREBROSPINAL FLUID Performed By: #### 3 4563-7, [id number], [id number] ####[facility]ATORYCLIA [id number] [place] [address] CSF PATHOLOGIST INTERP (LAB REFLEX ORDER-NO BILL)on 06-02-2021 CSF STAFF REVIEW Negative Normal [facility] Comment on above: Order Comment: Speci men Type: CEREBROSPINAL FLUID Performed By: #### 3 4563-7, [id number], [id number] ####[facility]ATORYCLIA [id number] [address] Pathologist name Reviewed by Amador Stevens MD [facility] Comment on above: Order Comment: Speci men Type: CEREBROSPINAL FLUID Performed By: #### 3 4563-7, [id number], [id number] ####[facility]ORYCLIA [id number] [address] Cell count panel (CSF)on Clarity (CSF) Clear Normal Clear [facility] Comment on above: Order Comment: Speci men Type: CEREBROSPINAL FLUID Performed By: #### 3 4563-7, [id number], [id number] ####[facility]ORYCLIA [id number] [address] Clarity (Unsp spec) Not Indicated Normal Clear [facility] Comment on above: Order Comment: Speci men Type: CEREBROSPINAL FLUID Performed By: #### 3 4563-7, [id number], [id number] ####[facility]ORYCLIA [id number] [address] Color (CSF) Colorless Normal Colorless [facility] Comment on above: Order Comment: Speci men Type: CEREBROSPINAL FLUID Performed By: #### 3 4563-7, [id number], [id number] ####[facility]ORYCLIA [id number] [address] Color (Spun CSF) Not Indicated Normal Colorless [facility] Comment on above: Order Comment: Speci men Type: CEREBROSPINAL FLUID Performed By: #### 3 4563-7, [id number], [id number] ####[facility]ORYCLIA [id number] [address] CSF TUBE NUMBER Sterile Container Normal [facility] Comment on above: Order Comment: Speci men Type: CEREBROSPINAL FLUID Performed By: #### 3 4563-7, [id number], ACX3324 ####[facility]ORYCLIA [id number] [address] RBC Manual cnt (CSF) [#/Vol] 117 cells/uL High 0-5 [facility] Comment on above: Order Comment: Speci men Type: CEREBROSPINAL FLUID Performed By: #### 3 4563-7, [id number], [id number] ####[facility]ORYCLIA [id number] [address] WBC Manual cnt (CSF) [#/Vol] 1 cells/uL Normal 0-5 [facility] Comment on above: Order Comment: Speci men Type: CEREBROSPINAL FLUID Performed By: #### 3 4563-7, [id number], [id number] ####[facility]ORYCLIA [id number] [address] Glucose CSF-mCncon 2 Glucose (CSF) [Mass/Vol] 82 mg/dL High 40-70 [facility] Comment on above: Order Comment: Speci men Type: CEREBROSPINAL FLUID Result Comment: Lumb ar CSF glucose values of healthy patients are approximately 60% of the plasma values and must always be compared with a concurrently measured plasma value for adequate clinical interpretation.References: 1. Glucose HK (GLUC3) [package insert V 12.0 [place]]. [employer], [place], [place]. September 2015. 2. Michelle Moore, Loki, H. (2015). Chapter 7: Glucose and Lactate. F. Irina rose al.(eds.), Cerebrospinal Fluid in Clinical Neurology. [place]: [employer]. Performed By: #### 2 342-4 ####[facility]ORYCLIA [id number] [address] HEPATIC FUNCTION PNLon 06-02 Albumin [Mass/Vol] 3.2 g/dL Low 3.9-4.9 [facility] Comment on above: Order Comment: Speci men Type: BLOOD SPECIMEN Performed By: #### [place], [address]-6 ####[facility] [facility]ORYCLIA [id number] [address] ALP [Catalytic activity/Vol] 67 U/L Normal 38-113 [facility] Comment on above: Order Comment: Speci men Type: BLOOD SPECIMEN Performed By: #### [place], [address]-7 ####[facility] [facility]ORYCLIA [id number] [address] ALT With P-5'-P [Catalytic activity/Vol] 16 U/L Normal 10-54 [facility] Comment on above: Order Comment: Speci men Type: BLOOD SPECIMEN Performed By: #### [place], [address]-4 ####[facility] [facility]ORYCLIA [id number] [address] AST With P-5'-P [Catalytic activity/Vol] 25 U/L Normal 14-40 [facility] Comment on above: Order Comment: Speci men Type: BLOOD SPECIMEN Performed By: #### H FP, ####[facility] [facility]ORYCLIA [id number] [address] Bilirubin [Mass/Vol] 0.2 mg/dL Normal 0.2-1.3 [facility] Comment on above: Order Comment: Speci men Type: BLOOD SPECIMEN Performed By: #### [place], [address]-4 ####[facility] [facility]ORYCLIA [id number] [address] Bilirubin.conjugated [Mass/Vol] mg/dL Normal <0.2 [facility] Comment on above: Order Comment: Speci men Type: BLOOD SPECIMEN Performed By: #### H FP, ####[facility] [facility]ORYCLIA [id number] [address] Protein [Mass/Vol] 5.8 g/dL Low 6.3-8.0 [facility] Comment on above: Order Comment: Speci men Type: BLOOD SPECIMEN Performed By: #### Marin KATHIE, 28314-8 ####[facility]ORYCLIA [id number] [address] MRI BRAIN WO/W IVCONon 06-02 MRI BRAIN WO/W IVCON Normal [facility] Magnesium SerPl-mCncon 06-02 Magnesium [Mass/Vol] 2.0 mg/dL Normal 1.7-2.3 [facility] Comment on above: Order Comment: Speci men Type: BLOOD SPECIMEN Performed By: #### 2 4321-2, , 2776-05 ####[facility]ORYCLIA [id number] [address] NT-proBNP SerPl-ncon 06-02 Natriuretic peptide.B prohormone N-Terminal [Mass/Vol] 296 pg/mL High <125 [facility] Comment on above: Order Comment: Speci men Type: BLOOD SPECIMEN Performed By: #### [place] KATHIE, 31558-5 ####[facility]ORYCLIA [id number] [address] POTASSIUM BLDon 06-02-2021 Potassium [Moles/Vol] 3.2 mmol/L Low 3.7-5.1 [facility] Comment on above: Order Comment: Speci men Type: BLOOD SPECIMEN Performed By: #### K 1 ####[facility]ORYCLIA [id number] [address] Phosphate SerPl-mCncon 06-02 Phosphate [Mass/Vol] 2.1 mg/dL Low 2.7-4.8 [facility] Comment on above: Order Comment: Speci men Type: BLOOD SPECIMEN Performed By: #### 2 4321-2, , 2776-05 ####[facility]ORYCLIA [id number] [address] Vancomycin random [Mass/Vol] on 06-02-2021 Vancomycin [Mass/Vol] 18.8 ug/mL Normal 10.0-20.0 [facility] Comment on above: Order Comment: Speci men Type: BLOOD SPECIMEN Result Comment: Refe rence ranges and high/low indicator flags are provided as general guidelines only. The treating physician must determine appropriate target levels/dosing based on the specific clinical situation. Performed By: #### 4 091-5 ####[facility]ORYCLIA [id number] [address] OF [facility] ALLIED HEALTHon 06-01-2021 ALLIED HEALTH Normal [facility] ALLIED HEALTH Normal [facility] HEALTH Normal [facility] ARTERIAL BLOOD GASESon 06-01 Base excess Calc (Bld) [Moles/Vol] 1 mmol/L Normal 0-2 [facility] Comment on above: Order Comment: Speci men Type: ARTERIAL BLOOD SPECIMEN Performed By: #### A LLBG ####[facility]ORYCLIA [id number] [address] Body temperature 97.52 [degF] Normal [facility] Comment on above: Order Comment: Speci men Type: ARTERIAL BLOOD SPECIMEN Performed By: #### A LLBG ####[facility]ORYCLIA [id number] [address] CALCIUM IONIZED, PH CORRECTED 1.13 mmol/L Normal 1.08-1.30 [facility] Comment on above: Order Comment: Speci men Type: ARTERIAL BLOOD SPECIMEN Performed By: #### A LLBG ####[facility]ORYCLIA [id number] [address] Calcium.ionized (BldV) [Mass/Vol] 1.12 mmol/L Normal 1.08-1.30 [facility] Comment on above: Order Comment: Speci men Type: ARTERIAL BLOOD SPECIMEN Performed By: #### A LLBG ####[facility]ORYCLIA [id number] [address] [place] Carboxyhemoglobin (BldA) [Mass fraction] 1.6 % Normal 0.0-2.0 [facility] Comment on above: Order Comment: Speci men Type: ARTERIAL BLOOD SPECIMEN Result Comment: Carb oxyhemoglobin Reference Range for Smokers: 2.0-8.0% Performed By: #### A LLBG ####[place] [facility]ORYCLIA [id number] [address] CO2 (Bld) [Partial pressure] 41 mm Hg Normal 36-46 [facility] Comment on above: Order Comment: Speci men Type: ARTERIAL BLOOD SPECIMEN Performed By: #### A LLBG ####[facility] [facility]ORYCLIA [id number] [address] CO2 [Moles/Vol] 23.0 mmol/L Normal 22-28 [facility] Comment on above: Order Comment: Speci men Type: ARTERIAL BLOOD SPECIMEN Performed By: #### A LLBG ####[facility]ORYCLIA [id number] [address] CO2 adjusted to patient's actual temperature (Bld) [Partial pressure] 40 mmHg Normal 36-46 [facility] Comment on above: Order Comment: Speci men Type: ARTERIAL BLOOD SPECIMEN Performed By: #### A LLBG ####[facility]ORYCLIA [id number] [address] FIO2 40 % Normal [facility] Comment on above: Order Comment: Speci men Type: ARTERIAL BLOOD SPECIMEN Performed By: #### A LLBG ####[facility]ORYCLIA [id number] [address] OF [facility] Glucose [Mass/Vol] 127 mg/dL High 60-105 [facility] Comment on above: Order Comment: Speci men Type: ARTERIAL BLOOD SPECIMEN Performed By: #### A LLBG ####[facility] [facility]ORYCLIA [id number] [address] HCO3 (Bld) [Moles/Vol] 25 mmol/L Normal 22-26 [facility] Comment on above: Order Comment: Speci men Type: ARTERIAL BLOOD SPECIMEN Performed By: #### A LLBG ####[facility]ORYCLIA [id number] [address] [place] Hematocrit (Bld) [Volume fraction] 33.7 % Low 39.0-51.0 [facility] Comment on above: Order Comment: Speci men Type: ARTERIAL BLOOD SPECIMEN Performed By: #### A LLBG ####[facility]ORYCLIA [id number] [address] [place] Hemoglobin (Bld) [Mass/Vol] 10.9 g/dL Low 13.0-17.0 [facility] Comment on above: Order Comment: Speci men Type: ARTERIAL BLOOD SPECIMEN Performed By: #### A LLBG ####[facility]ORYCLIA [id number] [address] INHALED TIDAL VOLUME (ML) 500 Normal [facility] Comment on above: Order Comment: Speci men Type: ARTERIAL BLOOD SPECIMEN Performed By: #### A LLBG ####[facility]ORYCLIA [id number] [address] [place] INVASIVE VENTILATOR MODE PRVC=Pressure Regulated Volume Control Normal [facility] Comment on above: Order Comment: Speci men Type: ARTERIAL BLOOD SPECIMEN Performed By: #### A LLBG ####[facility]ORYCLIA [id number] [address] [place] Methemoglobin (Bld) [Mass fraction] % Normal 0.0-1.5 [facility] Comment on above: Order Comment: Speci men Type: ARTERIAL BLOOD SPECIMEN Performed By: #### A LLBG ####[facility] [facility]ORYCLIA [id number] [address] [place] O2 THERAPY Ventilator Normal [facility] Comment on above: Order Comment: Speci men Type: ARTERIAL BLOOD SPECIMEN Performed By: #### A LLBG ####[facility] [facility]ORYCLIA [id number] [address] [place] Oxygen (Bld) [Partial pressure] 64 mm Hg Low 85-95 [facility] Comment on above: Order Comment: Speci men Type: ARTERIAL BLOOD SPECIMEN Performed By: #### A LLBG ####[facility] [facility]ORYCLIA [id number] [address] Oxygen adjusted to patient's actual temperature (Bld) [Partial pressure] 61.8 mmHg Low 85-95 [facility] Comment on above: Order Comment: Speci men Type: ARTERIAL BLOOD SPECIMEN Performed By: #### A LLBG ####[facility] [facility]ORYCLIA [id number] [address] OXYGEN SATURATION, ARTERIAL 94 % Low 95-98 [facility] Comment on above: Order Comment: Speci men Type: ARTERIAL BLOOD SPECIMEN Performed By: #### A LLBG ####[facility] [facility]ORYCLIA [id number] [address] Oxyhemoglobin (BldA) [Mass fraction] 92 % Low 95-98 [facility] Comment on above: Order Comment: Speci men Type: ARTERIAL BLOOD SPECIMEN Performed By: #### A LLBG ####[facility] [facility]ORYCLIA [id number] [address] PEEP/CPAP 5 cmH2O Normal [facility] Comment on above: Order Comment: Speci men Type: ARTERIAL BLOOD SPECIMEN Performed By: #### A LLBG ####[facility] [facility]ORYCLIA [id number] [address] pH (Bld) 7.40 [pH] Normal 7.35-7.45 [facility] Comment on above: Order Comment: Speci men Type: ARTERIAL BLOOD SPECIMEN Performed By: #### A LLBG ####[facility] [facility]ORYCLIA [id number] [address] pH adjusted to patient's actual temperature (Bld) 7.41 Normal 7.35-7.45 [facility] Comment on above: Order Comment: Speci men Type: ARTERIAL BLOOD SPECIMEN Performed By: #### A LLBG ####[facility] [facility]ATORYCLIA [id number] [place] [address] Potassium [Moles/Vol] 3.1 mmol/L Low 3.5-5.0 [facility] Comment on above: Order Comment: Speci men Type: ARTERIAL BLOOD SPECIMEN Performed By: #### A LLBG ####[facility]ATORYCLIA [id number] [address] SET VENTILATOR RESPIRATORY RATE (BPM) 18 BPM Normal [facility] Comment on above: Order Comment: Speci men Type: ARTERIAL BLOOD SPECIMEN Performed By: #### A LLBG ####[facility]ORYCLIA [id number] [address] Sodium [Moles/Vol] 141 mmol/L Normal 136-144 [facility] Comment on above: Order Comment: Speci men Type: ARTERIAL BLOOD SPECIMEN Performed By: #### A LLBG ####[facility]ORYCLIA [id number] [address] BASE DEFICIT, ARTERIAL -1.0 mmol/L Normal -2-0 [facility] Comment on above: Order Comment: Speci men Type: ARTERIAL BLOOD SPECIMEN Performed By: #### A LLBG ####[facility]ORYCL[facility] [id number] [address] Body temperature 98.24 [degF] Normal [facility] Comment on above: Order Comment: Speci men Type: ARTERIAL BLOOD SPECIMEN Performed By: #### A LLBG ####[facility]ORYCLIA [id number] [address] CALCIUM IONIZED, PH CORRECTED 1.08 mmol/L Normal 1.08-1.30 [facility] Comment on above: Order Comment: Speci men Type: ARTERIAL BLOOD SPECIMEN Performed By: #### A LLBG ####[facility]ORYCLIA [id number] [address] Calcium.ionized (BldV) [Mass/Vol] 1.15 mmol/L Normal 1.08-1.30 [facility] Comment on above: Order Comment: Speci men Type: ARTERIAL BLOOD SPECIMEN Performed By: #### A LLBG ####[facility]ORYCLIA [id number] [address] Carboxyhemoglobin (BldA) [Mass fraction] 1.4 % Normal 0.0-2.0 [facility] Comment on above: Order Comment: Speci men Type: ARTERIAL BLOOD SPECIMEN Result Comment: Carb oxyhemoglobin Reference Range for Smokers: 2.0-8.0% Performed By: #### A LLBG ####[facility] [facility]ATORYCLIA [id number] [address] CO2 (Bld) [Partial pressure] 59 mm Hg High 36-46 [facility] Comment on above: Order Comment: Speci men Type: ARTERIAL BLOOD SPECIMEN Performed By: #### A LLBG ####[facility]ORYCLIA [id number] [address] CO2 [Moles/Vol] 24.5 mmol/L Normal 22-28 [facility] Comment on above: Order Comment: Speci men Type: ARTERIAL BLOOD SPECIMEN Performed By: #### A LLBG ####[facility]ORYCLIA [id number] [address] CO2 adjusted to patient's actual temperature (Bld) [Partial pressure] 58 mmHg High 36-46 [facility] Comment on above: Order Comment: Speci men Type: ARTERIAL BLOOD SPECIMEN Performed By: #### A LLBG ####[facility] [facility]ORYCLIA [id number] [address] FIO2 40 % Normal [facility] Comment on above: Order Comment: Speci men Type: ARTERIAL BLOOD SPECIMEN Performed By: #### A LLBG ####[facility] [facility]ORYCLIA [id number] [address] Glucose [Mass/Vol] 128 mg/dL High 60-105 [facility] Comment on above: Order Comment: Speci men Type: ARTERIAL BLOOD SPECIMEN Performed By: #### A LLBG ####[facility] [facility]ATORYCLIA [id number] [address] [place] HCO3 (Bld) [Moles/Vol] 26 mmol/L Normal 22-26 [facility] Comment on above: Order Comment: Speci men Type: ARTERIAL BLOOD SPECIMEN Performed By: #### A LLBG ####[facility] [facility]ATORYCLIA [id number] [address] [place] Hematocrit (Bld) [Volume fraction] 35.6 % Low 39.0-51.0 [facility] Comment on above: Order Comment: Speci men Type: ARTERIAL BLOOD SPECIMEN Performed By: #### A LLBG ####[facility]ORYCLIA [id number] [address] [place] Hemoglobin (Bld) [Mass/Vol] 11.5 g/dL Low 13.0-17.0 [facility] Comment on above: Order Comment: Speci men Type: ARTERIAL BLOOD SPECIMEN Performed By: #### A LLBG ####[facility]ATORYCLIA [id number] [address] INHALED TIDAL VOLUME (ML) 500 Normal [facility] Comment on above: Order Comment: Speci men Type: ARTERIAL BLOOD SPECIMEN Performed By: #### A LLBG ####[facility]ORYCLIA [id number] [address] [place] INVASIVE VENTILATOR MODE PRVC=Pressure Regulated Volume Control Normal [facility] Comment on above: Order Comment: Speci men Type: ARTERIAL BLOOD SPECIMEN Performed By: #### A LLBG ####[facility]ORYCLIA [id number] [address] OF [place] Methemoglobin (Bld) [Mass fraction] % Normal 0.0-1.5 [facility] Comment on above: Order Comment: Speci men Type: ARTERIAL BLOOD SPECIMEN Performed By: #### A LLBG ####[facility]ORYCLIA [id number] [address] STRE[address] O2 THERAPY Ventilator Normal [facility] Comment on above: Order Comment: Speci men Type: ARTERIAL BLOOD SPECIMEN Performed By: #### A LLBG ####[facility]ATORYCLIA [id number] [address] Oxygen (Bld) [Partial pressure] 88 mm Hg Normal 85-95 [facility] Comment on above: Order Comment: Speci men Type: ARTERIAL BLOOD SPECIMEN Performed By: #### A LLBG ####[facility]ORYCLIA [id number] [address] Oxygen adjusted to patient's actual temperature (Bld) [Partial pressure] 86.5 mmHg Normal 85-95 [facility] Comment on above: Order Comment: Speci men Type: ARTERIAL BLOOD SPECIMEN Performed By: #### A LLBG ####[facility]ORYCLIA [id number] [address] OXYGEN SATURATION, ARTERIAL 95 % Normal 95-98 [facility] Comment on above: Order Comment: Speci men Type: ARTERIAL BLOOD SPECIMEN Performed By: #### A LLBG ####[facility]ORYCLIA [id number] [address] Oxyhemoglobin (BldA) [Mass fraction] 93 % Low 95-98 [facility] Comment on above: Order Comment: Speci men Type: ARTERIAL BLOOD SPECIMEN Performed By: #### A LLBG ####[facility]ORYCLIA [id number] [address] PEEP/CPAP 5 cmH2O Normal [facility] Comment on above: Order Comment: Speci men Type: ARTERIAL BLOOD SPECIMEN Performed By: #### A LLBG ####[facility]ORYCLIA [id number] [address] pH (Bld) 7.27 [pH] Low 7.35-7.45 [facility] Comment on above: Order Comment: Speci men Type: ARTERIAL BLOOD SPECIMEN Performed By: #### A LLBG ####[facility]ORYCLIA [id number] [address] pH adjusted to patient's actual temperature (Bld) 7.28 Low 7.35-7.45 [facility] Comment on above: Order Comment: Speci men Type: ARTERIAL BLOOD SPECIMEN Performed By: #### A LLBG ####[facility]ORYCLIA [id number] [address] Potassium [Moles/Vol] 3.3 mmol/L Low 3.5-5.0 [facility] Comment on above: Order Comment: Speci men Type: ARTERIAL BLOOD SPECIMEN Performed By: #### A LLBG ####[facility]ORYCLIA [id number] [address] SET VENTILATOR RESPIRATORY RATE (BPM) 14 BPM Normal [facility] Comment on above: Order Comment: Speci men Type: ARTERIAL BLOOD SPECIMEN Performed By: #### A LLBG ####[facility]ORYCLIA [id number] [address] Sodium [Moles/Vol] 141 mmol/L Normal 136-144 [facility] Comment on above: Order Comment: Speci men Type: ARTERIAL BLOOD SPECIMEN Performed By: #### A LLBG ####[facility]ORYCLIA [id number] [address] Bacteria CSF Culton 06-01-19 Bacteria identified Cx Nom (CSF) CULTURE, CSF: No growth 14 days GRAM STAIN: No organisms seen Rare Polymorphonuclear leukocytes Moderate Red Blood Cells Gram stain performed on cytospun specimen. Normal [facility] Comment on above: Performed By: #### 6 06-4 ####[facility]ORYCLIA [id number] [address] Bacteria Spec Resp Culton Bacteria identified Respiratory culture Nom (Unsp spec) CULTURE, RESPIRATORY: No growth 2 days GRAM STAIN: No organisms seen No Polymorphonuclear Leukocytes Normal [facility] Comment on above: Performed By: #### 3 2355-0 ####[facility]ORYCLIA [id number] [address] Basic metabolic 2000 panelon 06-01-2021 Anion gap [Moles/Vol] 8 mmol/L Low 9-18 [facility] Comment on above: Order Comment: Speci men Type: BLOOD SPECIMEN Performed By: #### 2 4321-2, , 2776-05 ####[facility]ATORYCLIA [id number] [place], [place] [id number] [place] [address] STATES OF [facility] Calcium [Mass/Vol] 7.8 mg/dL Low 8.5-10.2 [facility] Comment on above: Order Comment: Speci men Type: BLOOD SPECIMEN Performed By: #### 2 4321-2, , 2776-05 ####[facility]ORYCLIA [id number] [address] STATES [facility] Chloride [Moles/Vol] 109 mmol/L High 97-105 [facility] Comment on above: Order Comment: Speci men Type: BLOOD SPECIMEN Performed By: #### 2 4321-2, , 2776-05 ####[facility]ORYCLIA [id number] [place], [place] [address] [place] [address] [place] CO2 [Moles/Vol] 26 mmol/L Normal 22-30 [facility] Comment on above: Order Comment: Speci men Type: BLOOD SPECIMEN Performed By: #### 2 4321-2, , 2776-05 ####[facility]ORYCLIA [id number] [place] [address] [place] Creatinine [Mass/Vol] 0.82 mg/dL Normal 0.73-1.22 [facility] Comment on above: Order Comment: Speci men Type: BLOOD SPECIMEN Performed By: #### 2 4321-2, , 2776-05 ####[facility]ORYCLIA [id number] [address] [place] GFR/1.73 sq M.predicted MDRD (S/P/Bld) [Vol rate/Area] mL/min/{1.73_m2} Normal [facility] Comment on above: Order Comment: Speci men [...] Performed By: #### 2 4321-2, , 2776-05 ####[facility]ORYCLIA [id number] [place] [address] [place] Glucose [Mass/Vol] 105 mg/dL High 74-99 [facility] Comment on above: Order Comment: [facility] Type: BLOOD SPECIMEN Result Comment: The [place] Diabetes Association (ADA) provides guidance for cutoff [...] Standards of Medical Care in Diabetes 2016, [place] [employer]. Diabetes Care. 2016.39(Suppl 1). Performed By: #### 2 4321-2, , 2776-05 ####[facility]ORYCLIA [id number] [place] [address] [place] Potassium [Moles/Vol] 3.8 mmol/L Normal 3.7-5.1 [facility] Comment on above: Order Comment: [facility] Type: BLOOD SPECIMEN Performed By: #### 2 4321-2, , 2776-05 ####[facility]ORYCLIA [id number] [address] Sodium [Moles/Vol] 143 mmol/L Normal 136-144 [facility] Comment on above: Order Comment: Speci men Type: BLOOD SPECIMEN Performed By: #### 2 4321-2, 61193-7, 2776- ####[facility]ORYCLIA [id number] [address] Urea nitrogen [Mass/Vol] 15 mg/dL Normal 9-24 [facility] Comment on above: Order Comment: Speci men Type: BLOOD SPECIMEN Performed By: #### 2 4321-2, , 2776-05 ####[facility]ORYCLIA [id number] [address] CBC panel Auto (Bld)on 06-01 Erythrocyte distribution width (RBC) [Ratio] 15.4 % High 11.5-15.0 [facility] Comment on above: Order Comment: Speci men Type: BLOOD SPECIMEN Performed By: #### 5 8410-2 ####[facility]ORYCLIA [id number] [address] Hematocrit (Bld) [Volume fraction] 38.4 % Low 39.0-51.0 [facility] Comment on above: Order Comment: Speci men Type: BLOOD SPECIMEN Performed By: #### 5 8410-2 ####[facility]ORYCLIA [id number] [address] Hemoglobin (Bld) [Mass/Vol] 11.1 g/dL Low 13.0-17.0 [facility] Comment on above: Order Comment: Speci men Type: BLOOD SPECIMEN Performed By: #### 5 8410-2 ####[facility]ORYCLIA [id number] [address] MCH (RBC) [Entitic mass] 26.9 pg Normal 26.0-34.0 [facility] Comment on above: Order Comment: Speci men Type: BLOOD SPECIMEN Performed By: #### 5 8410-2 ####[facility]ORYCLIA [id number] [address] MCHC (RBC) [Mass/Vol] 28.9 g/dL Low 30.5-36.0 [facility] Comment on above: Order Comment: Speci men Type: BLOOD SPECIMEN Performed By: #### 5 8410-2 ####[facility]ORYCLIA [id number] [address] MCV (RBC) [Entitic vol] 93.2 fL Normal 80.0-100.0 [facility] Comment on above: Order Comment: Speci men Type: BLOOD SPECIMEN Performed By: #### 5 8410-2 ####[facility]ORYCLIA [id number] [address] Nucleated RBC (Bld) [#/Vol] 10*3/uL Normal <0.01 [facility] Comment on above: Order Comment: Speci men Type: BLOOD SPECIMEN Performed By: #### 5 8410-2 ####[facility]ORYCLIA [id number] [address] Platelet mean volume (Bld) [Entitic vol] 10.2 fL Normal 9.0-12.7 [facility] Comment on above: Order Comment: Speci men Type: BLOOD SPECIMEN Performed By: #### 5 8410-2 ####[facility]ORYCLIA [id number] [address] Platelets (Bld) [#/Vol] 231 10*3/uL Normal 150-400 [facility] Comment on above: Order Comment: Speci men Type: BLOOD SPECIMEN Performed By: #### 5 8410-2 ####[facility]ORYCLIA [id number] [address] RBC (Bld) [#/Vol] 4.12 10*6/uL Low 4.20-6.00 [facility] Comment on above: Order Comment: Speci men Type: BLOOD SPECIMEN Performed By: #### 5 8410-2 ####[facility]ORYCLIA [id number] [address] WBC (Bld) [#/Vol] 10.99 10*3/uL Normal 3.70-11.00 [facility] Comment on above: Order Comment: Speci men Type: BLOOD SPECIMEN Performed By: #### 5 8410-2 ####[facility]ORYCLIA [id number] [address] CONSULT PROGon 06-01-2021 CONSULT PROG Normal [facility] CSF MANUAL DIFFon 06-01-2021 DIF TTL, CSF 100 cells counted Normal [facility] Comment on above: Order Comment: Speci men Type: CEREBROSPINAL FLUID Performed By: #### 3 4563-7, [id number] ####[facility]ORYCLIA [id number] [address] LYMPH%, CSF 11 % Low 50-90 [facility] Comment on above: Order Comment: Speci men Type: CEREBROSPINAL FLUID Performed By: #### 3 4563-7, [id number] ####[facility]ORYCLIA [id number] [address] MONO%, CSF 10 % Normal 10-50 [facility] Comment on above: Order Comment: Speci men Type: CEREBROSPINAL FLUID Performed By: #### 3 4563-7, [id number] ####[facility]ORYCLIA [id number] [address] NEUT%, CSF 79 % High 0-3 [facility] Comment on above: Order Comment: Speci men Type: CEREBROSPINAL FLUID Performed By: #### 3 4563-7, [id number] ####[facility]ORYCLIA [id number] [address] BRAIN WO IVCONon 06-01-19 CT BRAIN WO IVCON Normal [facility] Cell count panel (CSF)on Clarity (CSF) Clear Normal Clear [facility] Comment on above: Order Comment: Speci men Type: CEREBROSPINAL FLUID Performed By: #### 3 4563-7, [id number] ####[facility]ORYCLIA [id number] [address] Clarity (Unsp spec) Not Indicated Normal Clear [facility] Comment on above: Order Comment: Speci men Type: CEREBROSPINAL FLUID Performed By: #### 3 4563-7, [id number] ####[facility]ORYCLIA [id number] [address] Color (CSF) Colorless Normal Colorless [facility] Comment on above: Order Comment: Speci men Type: CEREBROSPINAL FLUID Performed By: #### 3 4563-7, [id number] ####[facility]ORYCLIA [id number] [address] Color (Spun CSF) Not Indicated Normal Colorless [facility] Comment on above: Order Comment: Speci men Type: CEREBROSPINAL FLUID Performed By: #### 3 4563-7, [id number] ####[facility]ORYCLIA [id number] [address] CSF TUBE NUMBER Sterile Container Normal [facility] Comment on above: Order Comment: Speci men Type: CEREBROSPINAL FLUID Performed By: #### 3 4563-7, [id number] ####[facility]ORYCLIA [id number] [address] RBC Manual cnt (CSF) [#/Vol] 171 cells/uL High 0-5 [facility] Comment on above: Order Comment: Speci men Type: CEREBROSPINAL FLUID Performed By: #### 3 4563-7, [id number] ####[facility]ORYCLIA [id number] [address] WBC Manual cnt (CSF) [#/Vol] 5 cells/uL Normal 0-5 [facility] Comment on above: Order Comment: Speci men Type: CEREBROSPINAL FLUID Performed By: #### 3 4563-7, [id number] ####[facility]ORYCLIA [id number] [address] [place] FUNGAL CULTUREon 06-01-2021 FUNGAL CULTURE CULTURE, FUNGAL: No Fungus isolated after 28 days Normal [facility] Comment on above: Performed By: #### F CUL ####[facility]ATORYCLIA [id number] [place] [address] [place] Glucose CSF-mCncon 2 Glucose (CSF) [Mass/Vol] 78 mg/dL High 40-70 [facility] Comment on above: Order Comment: Speci men Type: CEREBROSPINAL FLUID Result Comment: Lumb ar CSF glucose values of healthy patients are approximately 60% of the plasma values and must always be compared with a concurrently measured plasma value for adequate clinical interpretation.References: 1. Glucose HK (GLUC3) [package insert V 12.0 [place]]. [employer], [place], [place]. September 2015. 2. Michelle Moore, Loki HGarfield (2015). Chapter 7: Glucose and Lactate. FGarfield Alcocer al.(eds.), Cerebrospinal Fluid in Clinical Neurology. [place]: [employer]. Performed By: #### 2 342-4, 2880-3 ####[facility]ORYCLIA [id number] [address] [place] HERPES SIMPLEX CSFon 022 HERPES SIMPLEX CSF HSV PCR SPEC SOURCE: Cerebrospinal Fluid HSV-1: Negative for Herpes Simplex Virus Type 1 by PCR HSV-2: Negative for Herpes Simplex Virus Type 2 by PCR Normal [facility] Comment on above: Performed By: #### H [facility] ####[facility] REFERENCE LABCLIA [id number] [id number] [address] [place] Lactate (Bld) [Moles/Vol]on 06-01-2021 Lactate [Moles/Vol] 0.5 mmol/L Normal 0.5-2.2 [facility] Comment on above: Order Comment: Speci men Type: BLOOD SPECIMEN Performed By: #### 3 2693-4 ####[facility]ORYCLIA [id number] [address] OF [facility] MENINGITIS ENCEPHALITIS BIOF IREon 06-01-2021 MENINGITIS ENCEPHALITIS BIOFIRE Negative Normal [facility] Comment on above: Order Comment: Speci men Type: CEREBROSPINAL FLUID Performed By: #### M GEBF ####[facility] RUSTCLIA [id number] [address] Magnesium SerPl-mCncon 06-01 Magnesium [Mass/Vol] 2.2 mg/dL Normal 1.7-2.3 [facility] Comment on above: Order Comment: Speci men Type: BLOOD SPECIMEN Performed By: #### 2 4321-2, 70074-4, 2777-1 ####[facility]ORYCLIA [id number] [address] OF [facility] Microorganism Spec Culton Microorganism identified Cx Nom (Unsp spec) CULTURE, AFB: No Acid Fast Bacilli isolated after 42 days AFB STAIN: No acid fast bacilli seen by flurochrome stain Normal [facility] Comment on above: Performed By: #### 1 1475-1 ####[facility]ORYCLIA [id number] [address] PROCALCITONIN (LAB)on 2021 Procalcitonin [Mass/Vol] 0.08 ng/mL Normal <0.09 [facility] Comment on above: Order Comment: Speci men Type: BLOOD SPECIMEN Result Comment: For a guided interpretation of test results, please visit the Change in Procalcitonin Calculator, [email or web address]. Performed By: #### P ROCAL ####[facility]ORYCLIA [id number] [address] [place] Phosphate SerPl-mCncon 06-01 Phosphate [Mass/Vol] 3.5 mg/dL Normal 2.7-4.8 [facility] Comment on above: Order Comment: Speci men Type: BLOOD SPECIMEN Performed By: #### 2 4321-2, 36799-1, 2777-1 ####[facility]ORYCLIA [id number] [address] [place] Prot CSF-mCncon 06-01-2021 Protein (CSF) [Mass/Vol] 52 mg/dL High 15-45 [facility] Comment on above: Order Comment: Speci men Type: CEREBROSPINAL FLUID Performed By: #### 2 342-4, 2880-3 ####[facility]ORYCLIA [id number] [address] Vancomycin random [Mass/Vol] on 06-01-2021 Vancomycin [Mass/Vol] 14.6 ug/mL Normal 10.0-20.0 [facility] Comment on above: Order Comment: Speci men Type: BLOOD SPECIMEN Result Comment: Refe rence ranges and high/low indicator flags are provided as general guidelines only. The treating physician must determine appropriate target levels/dosing based on the specific clinical situation. Performed By: #### 4 091-5 ####[facility]ORYCLIA [id number] [address] XR CHEST 1V FRONTALon 2021 XR CHEST 1V FRONTAL Normal [facility] XR CHEST 1V FRONTAL Normal [facility] XR NECK SOFT TISSUE 2V AP/LA Ton 06-01-2021 XR NECK SOFT TISSUE 2V AP/LAT Normal [facility] XR SKULL 2V AP/LATon 022 XR SKULL 2V AP/LAT Normal [facility] ALLIED HEALTHon 05-31-2021 ALLIED HEALTH HNO ID: [id number] Author: Christina Lynne, RT(R) Service: Radiology Author Type: Technologist Type: Allied Health Filed: 05/31/2021 5:48 PM Note Text: MRI tomorrow per RN. Normal [facility] ALLIED HEALTH Normal [facility] ALLIED HEALTH Normal [facility] ALLIED HEALTH Normal [facility] ANES POSTPROC EVALon 022 ANES POSTPROC EVAL Normal [facility] ANES PRE-OPon 05-31-2021 ANES PRE-OP Normal [facility] BRIEF OP NOTon 05-31-2021 BRIEF OP NOT Normal [facility] Bacteria Bld Culton 05-31-19 22 Bacteria identified Cx Nom (Bld) CULTURE, BLOOD: No growth 5 days Normal [facility] Comment on above: Performed By: #### 6 00-7 ####[facility]ORYCLIA [id number] [address] [place] Bacteria CSF Culton 05-31-19 22 Bacteria identified Cx Nom (CSF) CULTURE, CSF: No growth 14 days GRAM STAIN: No organisms seen Rare Polymorphonuclear leukocytes Rare Red Blood Cells Gram stain performed on cytospun specimen. Normal [facility] Comment on above: Performed By: #### 6 06-4 ####[facility]ORYCLIA [id number] [address] STATES OF [facility] Basic metabolic 2000 panelon 05-31-2021 Anion gap [Moles/Vol] 9 mmol/L Normal 9-18 [facility] Comment on above: Order Comment: Speci men Type: BLOOD SPECIMEN Performed By: #### 2 777-1, 08484-7, ####[facility]ORYCLIA [id number] [place] [address] [place] Calcium [Mass/Vol] 8.2 mg/dL Low 8.5-10.2 [facility] Comment on above: Order Comment: Speci men Type: BLOOD SPECIMEN Performed By: #### 2 777-1, 00986-2, ####[facility]ORYCLIA [id number] [place] [address] [place] Chloride [Moles/Vol] 110 mmol/L High 97-105 [facility] Comment on above: Order Comment: Speci men Type: BLOOD SPECIMEN Performed By: #### 2 777-1, 15463-9, ####[facility]ORYCLIA [id number] [place] [address] [place] CO2 [Moles/Vol] 27 mmol/L Normal 22-30 [facility] Comment on above: Order Comment: Speci men Type: BLOOD SPECIMEN Performed By: #### 2 777-1, 09286-7, ####[facility]ATORYCLIA [id number] [place] [address] [place] Creatinine [Mass/Vol] 0.85 mg/dL Normal 0.73-1.22 [facility] Comment on above: Order Comment: Speci men Type: BLOOD SPECIMEN Performed By: #### 2 777-1, 88298-6, ####[facility]CLIA [id number] [place] [address] [place] GFR/1.73 sq M.predicted MDRD (S/P/Bld) [Vol rate/Area] mL/min/{1.73_m2} Normal [facility] Comment on above: Order Comment: Speci men [...] actual GFR. Performed By: #### 2 777-1, 42550-0, ####[facility]OSPITALIA [id number] [address] [place] Glucose [Mass/Vol] 111 mg/dL High 74-99 [facility] Comment on above: Order Comment: [facility] Type: BLOOD SPECIMEN Result Comment: The [place] Diabetes Association (ADA) provides guidance for cutoff [...] Standards of Medical Care in Diabetes 2016, [place] [employer]. Diabetes Care. 2016.39(Suppl 1). Performed By: #### 2 777-1, 78248-9, ####[facility]ATORYCLIA [id number] [place], [place] [address] [place] [address] STATES OF [facility] Potassium [Moles/Vol] 3.7 mmol/L Normal 3.7-5.1 [facility] Comment on above: Order Comment: Speci men Type: BLOOD SPECIMEN Performed By: #### 2 777-1, , ####[facility]ATORYCLIA [id number] [address] STATES [facility] Sodium [Moles/Vol] 146 mmol/L High 136-144 [facility] Comment on above: Order Comment: Speci men Type: BLOOD SPECIMEN Performed By: #### 2 777-1, , ####[facility]ATORYCLIA [id number] [address] STATES [facility] Urea nitrogen [Mass/Vol] 16 mg/dL Normal 9-24 [facility] Comment on above: Order Comment: Speci men Type: BLOOD SPECIMEN Performed By: #### 2 777-1, , ####[facility]ATORYCLIA [id number] [address] [place] CASE MGT INIT ASSESon 2021 CASE MGT INIT ASSES Normal [facility] CBC W Auto Differential pane l (Bld)on 05-31-2021 Basophils (Bld) [#/Vol] 0.04 10*3/uL Normal <0.11 [facility] Comment on above: Order Comment: Speci men Type: BLOOD SPECIMEN Performed By: #### 5 7021-8 ####[facility]ATORYCLIA [id number] [address] [place] Basophils/100 WBC (Bld) 0.5 % Normal [facility] Comment on above: Order Comment: Speci men Type: BLOOD SPECIMEN Performed By: #### 5 7021-8 ####[facility]ORYCLIA [id number] [address] Differential cell count method Nom (Bld) Auto Normal [facility] Comment on above: Order Comment: Speci men Type: BLOOD SPECIMEN Performed By: #### 5 7021-8 ####[facility]ATORYCLIA [id number] [address] Eosinophils (Bld) [#/Vol] 0.27 10*3/uL Normal <0.46 [facility] Comment on above: Order Comment: Speci men Type: BLOOD SPECIMEN Performed By: #### 5 7021-8 ####[facility]ORYCLIA [id number] [address] Eosinophils/100 WBC (Bld) 3.3 % Normal [facility] Comment on above: Order Comment: Speci men Type: BLOOD SPECIMEN Performed By: #### 5 7021-8 ####[facility]ATORYCLIA [id number] [address] Erythrocyte distribution width (RBC) [Ratio] 15.4 % High 11.5-15.0 [facility] Comment on above: Order Comment: Speci men Type: BLOOD SPECIMEN Performed By: #### 5 7021-8 ####[facility]ATORYCLIA [id number] [address] Hematocrit (Bld) [Volume fraction] 37.9 % Low 39.0-51.0 [facility] Comment on above: Order Comment: Speci men Type: BLOOD SPECIMEN Performed By: #### 5 7021-8 ####[facility]ATORYCLIA [id number] [address] [place] Hemoglobin (Bld) [Mass/Vol] 11.5 g/dL Low 13.0-17.0 [facility] Comment on above: Order Comment: Speci men Type: BLOOD SPECIMEN Performed By: #### 5 7021-8 ####[facility]ORYCLIA [id number] [address] IMMATURE GRAN % 0.4 % Normal [facility] Comment on above: Order Comment: Speci men Type: BLOOD SPECIMEN Performed By: #### 5 7021-8 ####[facility]ORYCLIA [id number] [address] IMMATURE GRAN ABS 0.03 k/uL Normal <0.10 [facility] Comment on above: Order Comment: Speci men Type: BLOOD SPECIMEN Performed By: #### 5 7021-8 ####[facility]ORYCLIA [id number] [address] Lymphocytes (Bld) [#/Vol] 1.90 10*3/uL Normal 1.00-4.00 [facility] Comment on above: Order Comment: Speci men Type: BLOOD SPECIMEN Performed By: #### 5 7021-8 ####[facility]ATORYCLIA [id number] [address] Lymphocytes/100 WBC (Bld) 23.0 % Normal [facility] Comment on above: Order Comment: Speci men Type: BLOOD SPECIMEN Performed By: #### 5 7021-8 ####[facility]ATORYCLIA [id number] [address] MCH (RBC) [Entitic mass] 28.0 pg Normal 26.0-34.0 [facility] Comment on above: Order Comment: Speci men Type: BLOOD SPECIMEN Performed By: #### 5 7021-8 ####[facility]ATORYCLIA [id number] [address] MCHC (RBC) [Mass/Vol] 30.3 g/dL Low 30.5-36.0 [facility] Comment on above: Order Comment: Speci men Type: BLOOD SPECIMEN Performed By: #### 5 7021-8 ####[facility]ATORYCLIA [id number] [address] MCV (RBC) [Entitic vol] 92.4 fL Normal 80.0-100.0 [facility] Comment on above: Order Comment: Speci men Type: BLOOD SPECIMEN Performed By: #### 5 7021-8 ####[facility]ATORYCLIA [id number] [address] Monocytes (Bld) [#/Vol] 0.60 10*3/uL Normal <0.87 [facility] Comment on above: Order Comment: Speci men Type: BLOOD SPECIMEN Performed By: #### 5 7021-8 ####[facility] LABORATORYCLIA [id number] [address] Monocytes/100 WBC (Bld) 7.3 % Normal [facility] Comment on above: Order Comment: Speci men Type: BLOOD SPECIMEN Performed By: #### 5 7021-8 ####[facility]ATORYCLIA [id number] [address] Neutrophils (Bld) [#/Vol] 5.41 10*3/uL Normal 1.45-7.50 [facility] Comment on above: Order Comment: Speci men Type: BLOOD SPECIMEN Performed By: #### 5 7021-8 ####[facility]ATORYCLIA [id number] [address] Neutrophils/100 WBC (Bld) 65.5 % Normal [facility] Comment on above: Order Comment: Speci men Type: BLOOD SPECIMEN Performed By: #### 5 7021-8 ####[facility]ATORYCLIA [id number] [address] Nucleated RBC (Bld) [#/Vol] 10*3/uL Normal <0.01 [facility] Comment on above: Order Comment: Speci men Type: BLOOD SPECIMEN Performed By: #### 5 7021-8 ####[facility]ORYCLIA [id number] [place] [address] Nucleated RBC/100 WBC (Bld) [Ratio] 0.0 /100 WBC Normal 0.0 [facility] Comment on above: Order Comment: Speci men Type: BLOOD SPECIMEN Performed By: #### 5 7021-8 ####[facility]ORYCL[facility] [id number] [address] Platelet mean volume (Bld) [Entitic vol] 9.8 fL Normal 9.0-12.7 [facility] Comment on above: Order Comment: Speci men Type: BLOOD SPECIMEN Performed By: #### 5 7021-8 ####[facility]ORY[facility] [id number] [address] Platelets (Bld) [#/Vol] 251 10*3/uL Normal 150-400 [facility] Comment on above: Order Comment: Speci men Type: BLOOD SPECIMEN Performed By: #### 5 7021-8 ####[facility]ORYCLIA [id number] [address] RBC (Bld) [#/Vol] 4.10 10*6/uL Low 4.20-6.00 [facility] Comment on above: Order Comment: Speci men Type: BLOOD SPECIMEN Performed By: #### 5 7021-8 ####[facility]ORYCLIA [id number] [address] WBC (Bld) [#/Vol] 8.25 10*3/uL Normal 3.70-11.00 [facility] Comment on above: Order Comment: Speci men Type: BLOOD SPECIMEN Performed By: #### 5 7021-8 ####[facility]IA [id number] [address] OF [facility] CONSULTon 05-31-2021 CONSULT Normal [facility] CONSULT Normal [facility] CONSULT Normal [facility] CT BRAIN WO IVCONon 05-31-[address] BRAIN WO IVCON Normal [facility] CT BRAIN WO IVCON Normal [facility] CT CHEST WO IVCONon 05-31-19 CT CHEST WO IVCON Normal [facility] Cortis SerPl-mCncon 05-31-19 Cortisol [Mass/Vol] 31.0 ug/dL High AM: 5.3-22.5, PM: 3.4-16.8 [facility] Comment on above: Order Comment: Speci men Type: BLOOD SPECIMEN Result Comment: Prov ided reference range is from 6-10 AM sample collection time.Cortisol Reference Range: 6-10 AM = 4.8-19.5 ug/dL, 4-8 PM = 2.5-11.9 ug/dL Performed By: #### 2 143-6, 3016-3 ####[facility]ORYCLIA [id number] [address] Cryptoc Ag Spec Ql LAon 05-08 Cryptococcus sp Ag LA Ql (Unsp spec) Negative Normal [facility] Comment on above: Performed By: #### 4 3228-6 ####[facility]ORYCLIA [id number] [address] HISTORY PHYSICALon HISTORY PHYSICAL Normal [facility] Magnesium [facility] 05-31 Magnesium [Mass/Vol] 2.2 mg/dL Normal 1.7-2.3 [facility] Comment on above: Order Comment: Speci men Type: BLOOD SPECIMEN Performed By: #### 2 777-1, 85070-7, 11391-8 ####[facility]ORYCLIA [id number] [address] NURSING PROGon 05-31-2021 NURSING PROG Normal [facility] NUTRITIONon 05-31-2021 NUTRITION Normal [facility] OPERATIVE NOon 05-31-2021 OPERATIVE NO Normal [facility] Phosphate SerPl-mCncon 05-31 Phosphate [Mass/Vol] 3.3 mg/dL Normal 2.7-4.8 [facility] Comment on above: Order Comment: Speci men Type: BLOOD SPECIMEN Performed By: #### 2 777-1, 32319-0, 85266-2 ####[facility]ORYCLIA [id number] [address] STAPH AUREUS PCRon 2 S. aureus and MRSA panel MEGAN+probe (Nose) Normal Negative [facility] Comment on above: Order Comment: Speci men Type: SWAB OF INTERNAL NOSE Result Comment: Nega tive for Staphylococcus aureus by PCR.Negative for MRSA by PCR Performed By: #### S APCR ####[facility]ORYCLIA [id number] [address] [place] TSH SerPl-aCncon 05-31-2021 TSH Qn 0.829 m[IU]/L Normal 0.270-4.200 [facility] Comment on above: Order Comment: Speci men Type: BLOOD SPECIMEN Performed By: #### 2 143-6, 3016-3 ####[facility]ORYCLIA [id number] [address] OF [place] XR CHEST 1V FRONTALon 2021 XR CHEST 1V FRONTAL Normal [facility] XR CHEST 1V FRONTAL Normal [facility] Blood Cultureon 05-30-2021 Bacteria identified Cx Nom (Bld) Culture Result - No growth 5 days Normal [facility] Comment on above: Performed By: #### C AD #### [facility] [address] [id number] [facility] [address] [place] [address] Bacteria identified Cx Nom (Bld) Sp. Request/Comment: - 8.2MLS Culture Result - No growth 5 days Normal [facility] Comment on above: Performed By: #### C AD #### [facility] [address] [id number] [facility] [address] [place] [address] C-Reactive Proteinon 022 C-Reactive Protein 1.7 mg/dL High <0.9 [facility] Comment on above: Performed By: #### C RP ####[facility] [address] [place], [place] [phone] CNDSon 05-30-2021 [facility] HNO ID: [id number] Author: Columba Carroll PA-C Service: Hospital Medicine Author Type: Physician Housemaid Type: Discharge Summary Filed: 05/30/2021 12:49 PM [...] Team: Attending Provider: Ayaka Menjivar MD Physician Housemaid: Columba Carroll PA-C Consulting: Lilo Mendoza MD [...] consulted. Neurology suggested empiric abx coverage for PILOT MANAGER infection Rocephin and Vancomycin was started. Tele-neuro also suggested an MRI brain be obtained prior to LP to check JUKE BOX SERVICER shunt and decrease risk of herniation in neurosurgery capable facility. Transfer to [facility] requested. Sepsis lactate was 1.3. ABG showed pO2 67.8, placed patient on 2L NC.Follow B1, B12, and RPR pending. Transitions of Care Critical Issues: - patient transferred for [facility] for management of possible PILOT MANAGER infection and herniation. LABS AND PROCEDURES [...] intravenously q 1 (more content not included)... [facility] CONSULTon 05-30-2021 CONSULT HNO ID: [id number] Author: Juan Carlos Mckenzie MD Service: Infectious [...] vertebrae with counting from the craniocervical junction. German Teacher: PSCB Transcribe Date/Time: May 29 2021 8:59P Dictated by : CARLOS YOUNGER MD This examination was interpreted and the report reviewed and electronically signed by: CARLOS YOUNGER MD on May 29 2021 9:14PM EST ? CT CERVICAL SPINE WO (more content not included)... Normal [facility] CONSULT HNO ID: [id number] Author: Lilo Mendoza MD Service: Neurology General Author Type: Physician Type: Consults Filed: 05/30/2021 10:56 AM Note Text: [facility] TeleNeurology Consult Note Patient seen using [facility]. Recommendations are placed in the chart. Please review. For questions after hours, when teleneurologist is not available, for VANITA: Please Page [phone] for the [facility] from 12pm to 8Am Admitting Provider/Consulted by:Hermes Roca MD Time of Note:05/30/2021 Patient Name:Andrew Sifuentes Admit Date:05/29/2021 Hospital Day:0 CC: altered mental status History of Present Illness: Andrew Sifuentes is a 71 year old unknown handed male with limited information about past medical history including venous insufficiency s/p EVLT, hydrocepalus s/p JUKE BOX SERVICER shunt in 1987 with multiple revisions and [...] Reflexes Right Lef (more content not included)... [facility] CONSULT PROGon 05-30-2021 CONSULT PROG [facility] CONSULT PROG HNO ID: [id number] Author: Shannon Gutierres [facility] Service: Pharmacy Author Type: Pharmacist Type: Consult Progress Note Filed: 05/30/2021 2:35 PM Note Text: PHARMACY VANCOMYCIN DOSING NOTE Patient Name: Andrew Sifuentes Admission Date: 05/29/2021 Date of Consult: 05/30/2021 Time of Consult: 2:32 PM Indication: possible PILOT MANAGER infection Goal Range: 15-20 mcg/mL RECOMMENDATIONS/PLAN: [...] any questions, please contact inpatient pharmacy at [phone]. Age: [age] year old Allergies: ALLERGIES Allergen [...] Levels: No results found for: IMANI Gutierres [facility] Normal [facility] Creatinineon 05-30-2021 Creatinine [Mass/Vol] 0.86 mg/dL Normal 0.73-1.22 [facility] Comment on above: Performed By: #### C RET1 ####[facility] [address] [place] [phone] eGFR- Amer. >60 Normal [facility] Comment on above: Performed By: #### C RET1 ####[facility] [address] [place] [phone] eGFR-All Other Races >60 Normal [facility] Comment on above: Result Comment: eGFR (Estimated [...] at [email or web address]. Performed By: #### C RET1 ####[facility] [address] [place] [phone] Crypto Antigen Deton 022 Crypto Antigen Det Sp. Request/Comment: - SST Test Result - Duplicate request Account Credited [facility] Comment on above: Performed By: #### C AD #### [facility] [address] [place] [address] [place] [address] Crypto Antigen Det Sp. Request/Comment: - SST Test Result - Cryptococcal antigen detection result: Negative By latex agglutination [facility] Comment on above: Performed By: #### C AD #### [facility] [address] [place], [place] [phone] [facility] [address] [place] [address] ED NOTEon 05-30-2021 ED NOTE HNO ID: [id number] Author: Aletha Lopez RN Service: ? Author Type: Registered Nurse Type: ED Notes Filed: 05/29/2021 11:16 PM Note Text: Patient changed for incontinent urine, labs redrawn and sent. Patient aware of plan to be admitted and agrees with plan [facility] HISTORY PHYSICALon HISTORY PHYSICAL Normal [facility] HISTORY PHYSICAL HNO ID: [id number] Author: Hermes Roca MD Service: Hospital Medicine Author Type: Physician Type: HANDP Filed: 05/30/2021 1:03 AM Note Text: DEPARTMENT OF HOSPITAL MEDICINE HISTORY AND PHYSICAL EXAM SERVICE DATE: 05/29/2021 SERVICE TIME: 11:18 PM Primary Care Physician: Mateus Burris MD NIGHT AND WEEKEND COVERAGE: Please page [phone] until 7:30am this morning. After 7:30am please check the treatment team banner and page the appropriate service. 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 Normal [facility] Magnesium SerPl-mCncon 05-30 Magnesium [Mass/Vol] 2.5 mg/dL High 1.7-2.3 [facility] Comment on above: Order Comment: Speci men Type: BLOOD SPECIMEN Performed By: #### 1 9123-9, 2777-1 ####[facility]ATORYCLIA [id number] [place] [id number] [facility] NURSING PROGon 05-30-2021 NURSING PROG HNO ID: [id number] Author: Precious Cervantes RN Service: ? Author Type: Registered Nurse Type: Nursing Progress Note Filed: 05/30/2021 11:26 AM Note Text: Nursing Progress Note Patient Name: Andrew Sifuentes Patient Location: [place] [address] [address] Daily Note: 0700- Report received from warehouse supervisor 3rd shift RN, patient resting in bed at this time, call light within reach, bed low and locked. Asked the patient to state his name because warehouse supervisor 3rd shift RN was unable to complete [...] This note was completed by: Precious Cervantes [facility] NURSING PROG HNO ID: [id number] Author: Lyubov Day RN Service: ? Author Type: Registered Nurse Type: Nursing Progress Note Filed: 05/30/2021 1:27 AM Note Text: Nursing Progress Note Patient Name: Andrew Sifuentes Patient Location: [place] [id number]: Patient is unresponsive to questions. Patient [...] This note was completed by: Lyubov Day [facility] Phosphate SerPl-mCncon 05-30 Phosphate [Mass/Vol] 3.5 mg/dL Normal 2.7-4.8 [facility] Comment on above: Order Comment: Speci men Type: BLOOD SPECIMEN Performed By: #### 1 9123-9, 2777-1 ####[facility]ATORYCLIA [id number] [place] [address] [place] [facility] Sepsis Lactateon 05-30-2021 Sepsis Lactate 1.5 mmol/L Normal 0.5-2.0 [facility] Comment on above: Performed By: #### S LACT ####[facility] [address] [place], [place] [phone] Syphilis Ttl w/Reflxon 05-30 Syphilis Interp Cannot exclude recen t Treponemal infection if specimen collected within 7 to 10 days after appearance of suspect lesions or 2 to 3 weeks after an exposure. Clinical correlation is required. Normal [facility] Comment on above: Performed By: #### S YPHTX B1WB ####[facility] [address] [place], [place] [phone] Syphilis Screen Rslt Non-Reactive Normal Non Reactive [facility] Comment on above: Performed By: #### S YPHTX, B1WB ####[facility] [address] [place], [place] [phone] THERAPY NTon 05-30-2021 THERAPY NT HNO ID: [id number] Author: RADHA Andres/L Service: Occupational Therapy Author Type: Occupational Therapist Type: Therapy (PT/OT/Speech/Resp) Filed: 05/30/2021 10:29 AM Note Text: OCCUPATIONAL THERAPY MISSED VISIT SERVICE DATE: 05/30/2021 SERVICE TIME: 1017 to 1019 ROOM: [place] [address] Attempted Evaluation. Patient not seen due to Not following commands. Per nursing patient was seen by neuro and they are talking about having him transferred to [facility] secondary to shunt concerns. Will re attempt in the event patient continues to be admitted at [facility] and is able to participate. SIGNATURE: RADHA Andres/L PATIENT NAME: Andrew Sifuentes DATE: May 30, 2021 TIME: 10:21 AM [facility] THERAPY NT HNO ID: [id number] Author: Bette Velasquez PT Service: Physical Therapy Author Type: Physical Therapist Type: Therapy (PT/OT/Speech/Resp) Filed: 05/30/2021 8:42 AM Note Text: PHYSICAL THERAPY MISSED VISIT SERVICE DATE: 05/30/2021 SERVICE TIME: 0840 to 0840 ROOM: [place] [address] Attempted Evaluation. Patient not seen due to (pt difficult to awake per RN, very lethargic). Will re-attempt when schedule permits. SIGNATURE: Bette Velasquez PT PATIENT NAME: Andrew Sifuentes DATE: May 30, 2021 TIME: 8:41 AM [facility] Toxicology Screen,Uron 05-30 Amphetamines, Urine Negative Normal Negative [facility] Comment on above: Result Comment: Cuto ff threshold at 1000 ng/mL. Performed By: #### C AD #### [facility] [address] [place] [address] [facility] [address] [address] Barbiturates, Urine Negative Normal Negative [facility] Comment on above: Result Comment: Cuto ff threshold at 200 ng/mL. Performed By: #### C AD #### [facility] [address] [phone] [facility] [address] [phone] Benzodiazepines, Ur Negative Normal Negative [facility] Comment on above: Result Comment: Cuto ff threshold at 200 ng/mL. Performed By: #### C AD #### [facility] [address] [phone] [facility] [address] [place] [address] Cannabinoids, Urine Negative Normal Negative [facility] Comment on above: Result Comment: Cuto ff threshold at 50 ng/mL. Performed By: #### C AD #### [facility] [address] [id number] [facility] [address] [place] [phone] Cocaine, Urine Negative Normal Negative [facility] Comment on above: Result Comment: Cuto ff threshold at 300 ng/mL. Performed By: #### C AD #### [facility] [address] [place] [phone] [facility] [address] [place] [address] Opiates, Urine Negative Normal Negative [facility] Comment on above: Result Comment: Cuto ff threshold at 300 ng/mL. Performed By: #### C AD #### [facility] [address] [place] [phone] [facility] [address] [place] [address] Oxycodone, Urine Negative Normal Negative [facility] Comment on above: Result Comment: Cuto [...] on the same specimen through Client Services ([phone]) if contacted within 48 hours of initial testing. [1]Substance Abuse and Mental Health Services Administration (2012). Clinical Drug Testing in Primary Care Technical Assistance Publication Series 32. Department of Health and Human Services, [place], p.10. Performed By: #### C AD #### [facility] [address] [place] [phone] Phencyclidine, Urine Negative Normal Negative [facility] Comment on above: Result Comment: Cuto ff threshold at 25 ng/mL. Performed By: #### C AD #### [facility] [address] [place] [address] [place] [phone] Troponin Ton 05-30-2021 Troponin T <0.010 Normal 0.000-0.029 [facility] Comment on above: Performed By: #### T NT ####[facility] [address] [place] [phone] Urinalysison 05-30-2021 Bilirubin, Urine Negative Normal Negative [facility] Comment on above: Performed By: #### C AD #### [facility] [address] [place] [phone] Clarity (U) Slightly Cloudy Critically abnormal Clear [facility] Comment on above: Performed By: #### C AD #### [facility] [address] [place] [address] [facility] [address] [place], [place] [address] Color (U) Yellow Normal Yellow [facility] Comment on above: Performed By: #### C AD #### [facility] [address] [place] [address] [facility] [address] [place], [place] [address] Glucose Ql (U) Negative Normal Negative [facility] Comment on above: Performed By: #### C AD #### [facility] [address] [place] [address] [facility] [address] [place], [place] [address] Hemoglobin/Blood,Ur Negative Normal Negative [facility] Comment on above: Performed By: #### C AD #### [facility] [address] [place] [address] [facility] [address] [place], [place] [address] Ketones Ql (U) Negative Normal Negative [facility] Comment on above: Performed By: #### C AD #### [facility] [address] [place] [address] [facility] [address] [place], [place] [address] Leukest Negative Normal Negative [facility] Comment on above: Performed By: #### C AD #### [facility] [address] [place] [address] [facility] [address] [place], [place] [address] Nitrite Ql (U) Negative Normal Negative [facility] Comment on above: Performed By: #### C AD #### [facility] [address] [place] [address] [facility] [address] [place], [place] [address] pH (U) 8.5 [pH] High 5.0-8.0 [facility] Comment on above: Performed By: #### C AD #### [facility] [place] [address] [place] [address] Protein, Urine Negative Normal Negative [facility] Comment on above: Performed By: #### C AD #### [facility] [address] [place], [place] [phone] [place] [address] Specific [place], Ur 1.015 Normal 1.005-1.030 [facility] Comment on above: Performed By: #### C AD #### [facility] [address] [place], [place] [phone] [address] [address] Urobilinogen Qn (U) 0.2 {Marianne'U}/dL Normal 0.2-1.0 [facility] Comment on above: Performed By: #### C AD #### [facility] [address] [place], [place] [phone] [place] [address] Vitamin B1, Whole Blon 05-30 Vitamin B1 (TDP), WB 207.1 nmol/L Normal 84.0-213.0 [facility] Comment on above: Result Comment: This assay measures the concentration of thiamine diphosphate (TDP), the primary active form of vitamin B1. Approximately 90 percent of vitamin B1 present in whole blood is TDP. Thiamine and thiamine monophosphate, which comprise the remaining 10 percent, are not measured. This test was developed and its performance characteristics determined by [facility]'s [facility] Pathology and Laboratory Medicine [place] ( [facility]). It has not been cleared or approved by the FDA. [facility] is regulated under CLIA as qualified to perform high complexity testing. This test is used for clinical purposes. It should not be regarded as investigational or for research. Performed By: #### S YPHTX, B1WB ####[facility] [address] [place], [place] [phone] Vitamin B12on 05-30-2021 Cobalamin (Vitamin B12) [Mass/Vol] 494 pg/mL Normal 232-1245 [facility] Comment on above: Performed By: #### C AD #### [facility] [address] [place] [address] [facility] [address] [place], [place] [address] ALLIED HEALTHon 05-29-2021 ALLIED HEALTH HNO ID: [id number] Author: RT Kitty(R) Service: Radiology Author Type: Technologist Type: [facility] Filed: 05/29/2021 8:51 PM Note Text: [...] RT Kitty(R) May 29, 2021 8:51 PM [facility] HNO ID: [id number] Author: Markie Fish Service: ? Author Type: Polysomnographic Technician Type: Allied Health Filed: 05/29/2021 8:39 [...] Fish May 29, 2021 8:38 PM Normal [facility] CBC and Differentialon 05-29 Abs Baso 0.05 k/uL Normal <0.11 [facility] Comment on above: Performed By: #### C MP, MG1, CBCDIF ####[facility] [address] [place] [address] Abs [place] 0.72 k/uL Normal <0.87 [facility] Comment on above: Performed By: #### C MP, MG1, CBCDIF ####[place] [address] Abs Neut 7.86 k/uL High 1.45-7.50 [facility] Comment on above: Performed By: #### C MP, MG1, CBCDIF ####[place] [address] Absolute nRBC <0.01 Normal <0.01 [facility] Comment on above: Performed By: #### C MP, MG1, CBCDIF ####[place] [address] Basophils/100 WBC (Bld) 0.5 % [facility] Comment on above: Performed By: #### C MP, MG1, CBCDIF ####[place] [address] DTYPE Auto Diff [facility] Comment on above: Performed By: #### C MP, MG1, CBCDIF ####[place] [address] Eosinophils (Bld) [#/Vol] 0.10 10*3/uL Normal <0.46 [facility] Comment on above: Performed By: #### C MP, MG1, CBCDIF ####[place] [address] Eosinophils/100 WBC (Bld) 0.9 % [facility] Comment on above: Performed By: #### C MP, MG1, CBCDIF ####[facility] [address] [place] [address] Erythrocyte distribution width (RBC) [Ratio] 15.5 % High 11.5-15.0 [facility] Comment on above: Performed By: #### C MP, MG1, CBCDIF ####[facility] [address] [place] [address] Hematocrit (Bld) [Volume fraction] 41.6 % Normal 39.0-51.0 [facility] Comment on above: Performed By: #### C MP, MG1, CBCDIF ####[facility] [address] [place] [address] Hemoglobin (Bld) [Mass/Vol] 12.7 g/dL Low 13.0-17.0 [facility] Comment on above: Performed By: #### C MP, MG1, CBCDIF ####[place] [address] Lymphocytes (Bld) [#/Vol] 2.04 10*3/uL Normal 1.00-4.00 [facility] Comment on above: Performed By: #### C MP, MG1, CBCDIF ####[facility] [address] [place] [address] Lymphocytes/100 WBC (Bld) 18.9 % Normal [facility] Comment on above: Performed By: #### C MP, MG1, CBCDIF ####[facility] [address] [place] [address] MCH 27.3 pG Normal 26.0-34.0 [facility] Comment on above: Performed By: #### C MP, MG1, CBCDIF ####[facility] [address] [place] [address] MCHC (RBC) [Mass/Vol] 30.5 g/dL Normal 30.5-36.0 [facility] Comment on above: Performed By: #### C MP, MG1, CBCDIF ####[facility] [address] [place] [address] MCV (RBC) [Entitic vol] 89.5 fL Normal 80.0-100.0 [facility] Comment on above: Performed By: #### C MP, MG1, CBCDIF ####[facility] Fqlnondeym6935 [address] Monocytes/100 WBC (Bld) 6.7 % Normal [facility] Comment on above: Performed By: #### C MP, MG1, CBCDIF ####[facility] Lrfmgbbafe6631 [address] Neutrophils/100 WBC (Bld) 73.0 % Normal [facility] Comment on above: Performed By: #### C MP, MG1, CBCDIF ####[facility] [address] [place] [address] NRBCs 0.0 /100 WBC Normal 0 [facility] Comment on above: Performed By: #### C MP, MG1, CBCDIF ####[facility] [address] [place], [place] [id number] Platelet mean volume (Bld) [Entitic vol] 10.1 fL Normal 9.0-12.7 [facility] Comment on above: Performed By: #### C MP, MG1, CBCDIF ####[facility] J[address]acmasrs18[address] [place] [address] Platelets (Bld) [#/Vol] 291 10*3/uL Normal 150-400 [facility] Comment on above: Performed By: #### C MP, MG1, CBCDIF ####[facility] Ugsaukmnck9191 [address] RBC (Bld) [#/Vol] 4.65 10*6/uL Normal 4.20-6.00 [facility] Comment on above: Performed By: #### C MP, MG1, CBCDIF ####[facility] Uwhqrlumqy5269 [address] WBC (Bld) [#/Vol] 10.77 10*3/uL Normal 3.70-11.00 [facility] Comment on above: Performed By: #### C MP, MG1, CBCDIF ####[facility] [address] [place] [id number] CT BRAIN WO IVCONon 05-29-19 CT BRAIN WO IVCON * * *Final Report* * * DATE OF EXAM: May 29 2021 8:42PM [facility] 0504 - CT BRAIN WO IVCON / PROCEDURE REASON: Head trauma, headache * * * * Physician Interpretation * * * * EXAMINATION: CT CERVICAL SPINE WO IVCON, CT BRAIN WO IVCON CLINICAL HISTORY: C-spine trauma, NEXUS/CCR positive (accession [id number]), Head trauma, headache (accession [id number]) TECHNIQUE: Serial axial unenhanced images were obtained from the vertex to the foramen magnum. Spiral, high resolution axial unenhanced images were obtained from the skull base to the cervicothoracic junction with sagittal and coronal planar reconstructions. Dose-Length Product (DLP): 2132 mGy*cm. CT Dose Reduction Employed: Automated exposure control (AEC) COMPARISON: 08/13/[address] RESULT: BRAIN: Post-operative change: Right parietal approach [employer] shunt is intact. The intracranial fragments of [...] vertebrae with counting from the craniocervical junction. German Teacher: OG Transcribe Date/Time: May 29 2021 8:59P Dictated by : CARLOS YOUNGER MD This examination was interpreted and the report reviewed and electronically signed by: CARLOS YOUNGER MD on May 29 2021 9:14PM EST [id number] [facility] CT CERVICAL SPINE WO IVCONon 05-29-2021 CT CERVICAL SPINE WO IVCON * * *Final Report* * * DATE OF EXAM: May 29 2021 8:42PM [facility] 0505 - CT CERVICAL SPINE WO IVCON / PROCEDURE REASON: C-spine trauma, NEXUS/CCR positive * * * * Physician Interpretation * * * * EXAMINATION: CT CERVICAL SPINE WO IVCON, CT BRAIN WO IVCON CLINICAL HISTORY: C-spine trauma, NEXUS/CCR positive (accession [id number]), Head trauma, headache (accession [id number]) TECHNIQUE: Serial axial unenhanced images were obtained from the vertex to the foramen magnum. Spiral, high resolution axial unenhanced images were obtained from the skull base to the cervicothoracic junction with sagittal and coronal planar reconstructions. Dose-Length Product (DLP): 2132 mGy*cm. CT Dose Reduction Employed: Automated exposure control (AEC) COMPARISON: 08/13/[address] RESULT: BRAIN: Post-operative change: Right parietal approach J[employer] shunt is intact. The intracranial fragments of [...] vertebrae with counting from the craniocervical junction. German Teacher: PSCShilpa Transcribe Date/Time: May 29 2021 8:59P Dictated by : CARLOS YOUNGER MD This examination was interpreted and the report reviewed and electronically signed by: CARLOS YOUNGER MD on May 29 2021 9:14PM EST [id number] Normal [facility] Cepheid Bill only (EXCFR)on 05-29-2021 Cepheid Bill only (EXCFR) Billed for services performed Normal [facility] Comment on above: Performed By: #### C AD #### [facility] [address] [place], [place] [address] [place] [address] Comp Metabolic Panelon 05-29 Albumin [Mass/Vol] 4.1 g/dL Normal 3.9-4.9 [facility] Comment on above: Performed By: #### C MP ####[facility] [address] [place] [address] ALP [Catalytic activity/Vol] 86 U/L Normal 38-113 [facility] Comment on above: Performed By: #### C MP ####[facility] K[address]dmrixld5775 [place] [address] ALT [Catalytic activity/Vol] 15 U/L Normal 10-54 [facility] Comment on above: Performed By: #### C MP ####[facility] Wt[address]wfvy5[address] [place] [address] Anion gap [Moles/Vol] 9 mmol/L Normal 9-18 [facility] Comment on above: Performed By: #### C MP ####[facility] Htnfnnvuzq220[address] [place] [address] AST [Catalytic activity/Vol] 22 U/L Normal 14-40 [facility] Comment on above: Performed By: #### C MP ####[facility] Yexfs[address]ajj2872 [place] [address] Bilirubin [Mass/Vol] 0.2 mg/dL Normal 0.2-1.3 [facility] Comment on above: Performed By: #### C MP ####[facility] [address]ffouu15[address] [place] [address] Calcium [Mass/Vol] 9.1 mg/dL Normal 8.5-10.2 [facility] Comment on above: Performed By: #### C MP ####[facility] L[address]quz51[address] [place] [address] Chloride [Moles/Vol] 103 mmol/L Normal 97-105 [facility] Comment on above: Performed By: #### C MP ####[facility] [address]itwpm44[address] [place] [address] CO2 [Moles/Vol] 29 mmol/L Normal 22-30 [facility] Comment on above: Performed By: #### C MP ####[facility] Yukhw[address]phau67[address] [place] [address] Creatinine [Mass/Vol] 0.89 mg/dL Normal 0.73-1.22 [facility] Comment on above: Performed By: #### C MP ####[facility] [address]lf[address] [place] [address] eGFR- Amer. >60 Normal [facility] Comment on above: Performed By: #### C MP ####[facility] I[address]zxuakaw1804 [place] [address] eGFR-All Other Races >60 Normal [facility] Comment on above: Result Comment: eGFR (Estimated [...] at [email or web address]. Performed By: #### C MP ####[facility] [address] [place] [address] Glucose [Mass/Vol] 120 mg/dL High 74-99 [facility] Comment on above: Result Comment: The [place] Diabetes Association (ADA) provides guidance for cutoff [...] Standards of Medical Care in Diabetes 2016, [place] [employer]. Diabetes Care. 2016.39(Suppl 1). Performed By: #### C MP ####[facility] [address] [place] [address] Potassium [Moles/Vol] 4.2 mmol/L Normal 3.7-5.1 [facility] Comment on above: Performed By: #### C MP ####[place] [address] Protein [Mass/Vol] 7.1 g/dL Normal 6.3-8.0 [facility] Comment on above: Performed By: #### C MP ####[place] [address] Sodium [Moles/Vol] 141 mmol/L Normal 136-144 [facility] Comment on above: Performed By: #### C MP ####[place] [address] Urea nitrogen [Mass/Vol] 11 mg/dL Normal 9-24 [facility] Comment on above: Performed By: #### C MP ####[place] [address] Albumin [Mass/Vol] 4.1 g/dL Normal 3.9-4.9 [facility] Comment on above: Performed By: #### C MP, MG1, CBCDIF ####[facility] [address] [place] [address] ALP [Catalytic activity/Vol] 86 U/L Normal 38-113 [facility] Comment on above: Performed By: #### C MP, MG1, CBCDIF ####[facility] [address]f6[address] [place] [address] ALT Unable to assay due to interference from hemolysis. Suggest reorder as clinically indicated. Normal 10-54 [facility] Comment on above: Result Comment: [facility] by Sabino Performed By: #### C MP, MG1, CBCDIF ####[facility] [address] [place] [address] Anion gap [Moles/Vol] 12 mmol/L Normal 9-18 [facility] Comment on above: Performed By: #### C MP, MG1, CBCDIF ####[facility] Emp[address] [place] [address] AST Unable to assay due to interference from hemolysis. Suggest reorder as clinically indicated. Normal 14-40 [facility] Comment on above: Result Comment: [facility] 05.29.21 by Sabino Performed By: #### C MP, MG1, CBCDIF ####[facility] [address] [place] [address] Bilirubin [Mass/Vol] 0.2 mg/dL Normal 0.2-1.3 [facility] Comment on above: Performed By: #### C MP, MG1, CBCDIF ####[facility] [address] [place] [address] Calcium [Mass/Vol] 9.0 mg/dL Normal 8.5-10.2 [facility] Comment on above: Performed By: #### C MP, MG1, CBCDIF ####[facility] [address] [place] [address] Chloride [Moles/Vol] 102 mmol/L Normal 97-105 [facility] Comment on above: Performed By: #### C MP, MG1, CBCDIF ####[facility] [address] [place] [address] CO2 [Moles/Vol] 27 mmol/L Normal 22-30 [facility] Comment on above: Performed By: #### C MP, MG1, CBCDIF ####[facility] [address]kg28[address] [place] [address] Creatinine [Mass/Vol] 0.75 mg/dL Normal 0.73-1.22 [facility] Comment on above: Performed By: #### C MP, MG1, CBCDIF ####[facility] [address]zomfvpoo0314 [place] [address] eGFR- Amer. >60 Normal [facility] Comment on above: Performed By: #### C MP, MG1, CBCDIF ####[facility] [address]oy[address]zz[address] [place] [address] eGFR-All Other Races >60 Normal [facility] Comment on above: Result Comment: eGFR (Estimated [...] Performed By: #### C MP, MG1, CBCDIF ####[facility] Hpczkfwecw5601 [address] Glucose [Mass/Vol] 112 mg/dL High 74-99 [facility] Comment on above: Result Comment: The [place] Diabetes Association (ADA) provides guidance for cutoff [...] Standards of Medical Care in Diabetes 2016, [place] Diabetes [employer]. Diabetes Care. 2016.39(Suppl 1). Performed By: #### C MP, MG1, CBCDIF ####[facility] [address] [place] [address] Potassium Unable to assay due to interference from hemolysis. Suggest reorder as clinically indicated. Normal 3.7-5.1 [facility] Comment on above: Result Comment: Call ed to ED Álvaro at 2129 on 05.29.21 by Sabino Performed By: #### C MP, MG1, CBCDIF ####[facility] [address]8066 [place] [address] Protein [Mass/Vol] 7.3 g/dL Normal 6.3-8.0 [facility] Comment on above: Performed By: #### C MP, MG1, CBCDIF ####[facility] Nvwp[address]htw3836 [place] [address] Sodium [Moles/Vol] 141 mmol/L Normal 136-144 [facility] Comment on above: Performed By: #### C MP, MG1, CBCDIF ####[facility] Qiuyfwdtha[address] [place] [id number] Urea nitrogen [Mass/Vol] 11 mg/dL Normal 9-24 [facility] Comment on above: Performed By: #### C MP, MG1, CBCDIF ####[facility] Buhkmxmsey0115 [address] ED PROV NOTEon 05-29-2021 ED PROV NOTE HNO ID: [id number] Author: Shanell Slaughter MD Service: ? Author [...] No radiographic evidence of acute cardiopulmonary disease. German Teacher: [facility] Transcribe Date/Time: May 29 2021 8:53P [...] vertebrae with counting from the craniocervical junction. German Teacher: PSCB Transcribe Date/Time: May 29 2021 8:59P [...] vertebrae with counting from the craniocervical junction. German Teacher: [facility] Transcribe Date/Time: May 29 (more content not included)... Normal [facility] ED PROV NOTE HNO ID: [id number] Author: Flavio Pandya DO Service: Emergency Medicine Author Type: Physician Type: ED Provider Notes Filed: 05/29/2021 7:10 PM Note Text: ED Provider Note Patient Name: Andrew Sifuentes SERVICE DATE: 05/29/21 History Patient presents with: Fall 71 yo male non-smoker, hx of HTN, 2 JUKE [employer] SERVIC[employer] shunts, PE (not on anticoagulation now), asthma, [...] from bedside clinician. Provider Location: [facility] Patient Location: Outpatient Hospital Physical Exam [...] Flavio Pandya, DO Flavio Pandya, 05/29/211909 Normal [facility] EXCOVD, Flu A/B, RSV (On int erfaces 1102,1120)on 05-29-2021 Influenza A PCR Negative Normal [facility] Comment on above: Performed By: #### C AD #### [facility] [address] [place] [address] Influenza B PCR Negative Normal [facility] Comment on above: Performed By: #### C AD #### [facility] [address] [place] [address] RSV PCR Negative Normal [facility] Comment on above: Result Comment: This test has been authorized by [facility] under an Emergency Use Authorization (EUA). Performed By: #### C AD #### [facility] [address] [place] [address] SARS-CoV-2 (COVID-19) RNA MEGAN+probe Ql (Unsp spec) UPPER RESPIRATORY TRACT SWAB Normal [facility] Comment on above: Performed By: #### C AD #### [facility] [address] [place], [place] [address] [place] [address] SARS-CoV-2 (COVID-19) RNA MEGAN+probe Ql (Unsp spec) Negative for COVID19 (SARS CoV2) by RT-PCR or equivalent method. Normal Negative for COVID19 (SARS CoV2) by RT-PCR or equivalent method. [facility] Comment on above: Result Comment: This test has been authorized by [facility] under an Emergency Use Authorization (EUA). Performed By: #### C AD #### [facility] [address] [place] [address] [facility] [address] [place] [address] Magnesiumon 05-29-2021 Magnesium [Mass/Vol] 2.2 mg/dL Normal 1.7-2.3 [facility] Comment on above: Performed By: #### C MP, MG1, CBCDIF ####[facility] [address] [place] [address] NT Pro BNPon 05-29-2021 PRO B Natr Peptide 303 pg/mL High <125 [facility] Comment on above: Performed By: #### N TBNP ####[facility] Vjlkiizcon6618 [address] Troponin Ton 05-29-2021 Troponin T <0.010 Normal 0.000-0.029 [facility] Comment on above: Performed By: #### T NT ####[facility] [address]hwav55[address] [place] [address] Troponin T Unable to assay due to interference from hemolysis. Suggest reorder as clinically indicated. Normal 0.000-0.029 [facility] Comment on above: Result Comment: Call ed to ED Álvaro at 2129 on 05.29.21 by Sabino Performed By: #### T NT ####[facility] Txtvljcljc7732 [address]721[address] XR CHEST 1V FRONTAL PORTon 0 05-29-2021 [...] No radiographic evidence of acute cardiopulmonary disease. German Teacher: OG Transcribe Date/Time: May 29 2021 8:53P Dictated by : ROLY BANGURA MD This examination was interpreted and the report reviewed and electronically signed by: ROLY BANGURA MD on May 29 2021 8:54PM EST [id number] Normal [facility] PANELon 2020 Albumin [Mass/Vol] 3.9 g/dL Normal 3.4 - 5.0 [facility] Comment on above: Order Comment: PATIE NT FASTING Performed By: #### C MP #### [facility] [address] [place] [address] ALP [Catalytic activity/Vol] 71 U/L Normal 33 - 136 [facility] Comment on above: Order Comment: PATIE NT FASTING Performed By: #### C MP #### [facility] [address] [place] [address] ALT [Catalytic activity/Vol] 19 U/L Normal 10 - 52 [facility] Comment on above: Order Comment: PATIE NT FASTING Result Comment: Nasima ents treated with Sulfasalazine may generate falsely decreased results for ALT. Performed By: #### C MP #### [facility] [address] [place] [address] Anion gap [Moles/Vol] 13 mmol/L Normal 10 - 20 [facility] Comment on above: Order Comment: PATIE NT FASTING Performed By: #### C MP #### [facility] [address] [place] [address] AST [Catalytic activity/Vol] 20 U/L Normal 9 - 39 [facility] Comment on above: Order Comment: PATIE NT FASTING Performed By: #### C MP #### [facility] [address] [place] [address] Bilirubin [Mass/Vol] 0.6 mg/dL Normal 0.0 - 1.2 [facility] Comment on above: Order Comment: PATIE NT FASTING Performed By: #### C MP #### [facility] [address] [place] [address] Calcium [Mass/Vol] 9.0 mg/dL Normal 8.6 - 10.6 [facility] Comment on above: Order Comment: PATIE NT FASTING Performed By: #### C MP #### [facility] [address] [place] [address] Chloride [Moles/Vol] 103 mmol/L Normal 98 - 107 [facility] Comment on above: Order Comment: PATIE NT FASTING Performed By: #### C MP #### [facility] [address] [place] [address] Creatinine [Mass/Vol] 0.94 mg/dL Normal 0.50 - 1.30 [facility] Comment on above: Order Comment: PATIE NT FASTING Performed By: #### C MP #### [facility] [address] [place] [address] GFR- AM. >60 Normal >60 [facility] Comment on above: Order Comment: PATIE NT FASTING Result Comment: CALC ULATIONS OF ESTIMATED GFR ARE PERFORMED USING THE MDRD STUDY EQUATION FOR THE IDMS-TRACEABLE CREATININE METHODS. CLIN CHEM 2007;53:766-72 Performed By: #### C MP #### [facility] [address] [place] [address] GFR-NON AM. >60 Normal >60 [facility] Comment on above: Order Comment: PATIE NT FASTING Performed By: #### C MP #### [facility] [address] [place] [address] Glucose [Mass/Vol] 85 mg/dL Normal 74 - 99 [facility] Comment on above: Order Comment: PATIE NT FASTING Performed By: #### C MP #### [facility] [address] [place] [address] HCO3 (Bld) [Moles/Vol] 30 mmol/L Normal 21 - 32 [facility] Comment on above: Order Comment: PATIE NT FASTING Performed By: #### C MP #### [facility] [address] [place] [address] Potassium [Moles/Vol] 4.1 mmol/L Normal 3.5 - 5.3 [facility] Comment on above: Order Comment: PATIE NT FASTING Performed By: #### C MP #### [facility] [address] [place] [address] Protein [Mass/Vol] 6.6 g/dL Normal 6.4 - 8.2 [facility] Comment on above: Order Comment: PATIE NT FASTING Performed By: #### C MP #### [facility] [address] [place] [address] Sodium [Moles/Vol] 142 mmol/L Normal 136 - 145 [facility] Comment on above: Order Comment: PATIE NT FASTING Performed By: #### C MP #### [facility] [address] [place] [address] Urea nitrogen [Mass/Vol] 14 mg/dL Normal 6 - 23 [facility] Comment on above: Order Comment: PATIE NT FASTING Performed By: #### C MP #### [facility] [address] [place] [address] LIPID PANEL (CORONARY RISK 2 )on 09-03-2020 Cholesterol [Mass/Vol] 210 mg/dL High 0 - 199 [facility] Comment on above: Order Comment: PATIE [...] dosing. Performed By: #### L IPID #### [facility] [address] [place] [address] Cholesterol in HDL [Mass/Vol] 50.1 mg/dL Normal [facility] Comment on above: Order Comment: PATIE NT FASTING Result Comment: . AGE VERY LOW LOW NORMAL HIGH 0-19 Y < 35 < 40 40-45 ---- 20-24 Y ---- < 40 >45 ---- >24 Y ---- < 40 40-60 >60 . Performed By: #### L IPID #### [facility] [address] [place] [address] Cholesterol in LDL [Mass/Vol] 130 mg/dL High 0 - 99 [facility] Comment on above: Order Comment: PATIE NT FASTING Result Comment: . NEAR BORD AGE DESIRABLE OPTIMAL HIGH HIGH VERY HIGH 0-19 Y 0 - 109 --- 110-129 >/= 130 ---- 20-24 Y 0 - 119 --- 120-159 >/= 160 ---- >24 Y 0 - 99 100-129 130-159 160-189 >/=190 . Performed By: #### L IPID #### [facility] [address] [place] [address] Cholesterol in VLDL [Mass/Vol] 30 mg/dL Normal 0 - 40 [facility] Comment on above: Order Comment: PATIE NT FASTING Performed By: #### L IPID #### [facility] [address] [place] [address] Cholesterol.total/Chol esterol in HDL [Mass ratio] 4.2 {ratio} Normal [facility] Comment on above: Order Comment: PATIE NT FASTING Result Comment: REF VALUES DESIRABLE < 3.4 HIGH RISK > 5.0 Performed By: #### L IPID #### [facility] [address] [place] [address] Triglyceride [Mass/Vol] 152 mg/dL High 0 - 149 [facility] Comment on above: Order Comment: PATIE [...] Performed By: #### L IPID #### [facility] [address] [place] [address] PROSTATE SPEC.AG,SCREENon PROSTATE SPEC.AG,SCREEN 0.37 ng/mL Normal 0.00 - 4.00 [facility] Comment on above: Order Comment: PATIE NT FASTING Result Comment: The FDA requires that the method used for PSA assay be reported to the physician. Values obtained with different assay methods must not be used interchangeably. This test was performed at [facility] using the [employer] PSA method, which is a sandwich immunoassay using chemiluminescence for quantitation. The assay is approved for measurement of prostate-specific antigen (PSA) in serum and may be used in conjunction with a digital rectal examination in men 50 years and older as an aid in detection of prostate cancer. 5-Dgtyu-vyelpbeji inhibitors (e.g. Proscar, Finasteride, Avodart, Dutasteride and Elizabeth) for the treatment of BPH have been shown to lower PSA levels by an average of 50% after 6 months of treatment. Performed By: #### P SASC #### [facility] [address] [place] [address] TSH WITH REFLEX TO FREE T4 I F ABNORMALon 09-03-2020 TSH Qn 0.97 m[IU]/L Normal 0.44 - 3.98 [facility] Comment on above: Order Comment: PATIE NT FASTING Result Comment: TSH testing is performed using different testing methodology at [facility] than at other [facility]. Direct result comparisons should only be made within the same method. Performed By: #### T HYDS #### [facility] [address] [place] [address] CBC AND DIFFERENTIALon 09-02 % AUTOMATED IMMATURE GRAN 0.3 % Normal 0.0 - 0.9 [facility] Comment on above: Order Comment: PATIE NT FASTING Result Comment: [place] t[place] Granulocyte Count (IG) includes promyelocytes, myelocytes and metamyelocytes but does not include bands. Percent differential counts (%) should be interpreted in the context of the absolute cell counts (cells/L). Performed By: #### C BCDF #### [facility] [address] [place] [address] Basophils (Bld) [#/Vol] 0.07 10*3/uL Normal 0.00 - 0.10 [facility] Comment on above: Order Comment: PATIE NT FASTING Result Comment: Auto mated WBC differential has been confirmed by manual smear. Performed By: #### C BCDF #### [facility] [address] [place] [address] Basophils/100 WBC (Bld) 0.9 % Normal 0.0 - 2.0 [facility] Comment on above: Order Comment: PATIE NT FASTING Performed By: #### C BCDF #### [facility] [address] [place] [address] Eosinophils (Bld) [#/Vol] 0.21 10*3/uL Normal 0.00 - 0.70 [facility] Comment on above: Order Comment: PATIE NT FASTING Performed By: #### C BCDF #### [facility] [address] [place] [address] Eosinophils/100 WBC (Bld) 2.8 % Normal 0.0 - 6.0 [facility] Comment on above: Order Comment: PATIE NT FASTING Performed By: #### C BCDF #### [facility] [address] [place] [address] Lymphocytes (Bld) [#/Vol] 2.28 10*3/uL Normal 1.20 - 4.80 [facility] Comment on above: Order Comment: PATIE NT FASTING Performed By: #### C BCDF #### [facility] [address] [place] [address] Lymphocytes/100 WBC (Bld) 30.9 % Normal 13.0 - 44.0 [facility] Comment on above: Order Comment: PATIE NT FASTING Performed By: #### C BCDF #### [facility] [address] [place] [address] Monocytes (Bld) [#/Vol] 0.50 10*3/uL Normal 0.10 - 1.00 [facility] Comment on above: Order Comment: PATIE NT FASTING Performed By: #### C BCDF #### [place] [address] [place] [address] Monocytes/100 WBC (Bld) 6.8 % Normal 2.0 - 10.0 [facility] Comment on above: Order Comment: PATIE NT FASTING Performed By: #### C BCDF #### [facility] [address] [place] [address] Neutrophils (Bld) [#/Vol] 4.29 10*3/uL Normal 1.20 - 7.70 [facility] Comment on above: Order Comment: PATIE NT FASTING Performed By: #### C BCDF #### [facility] [address] [place] [address] Neutrophils/100 WBC (Bld) 58.3 % Normal 40.0 - 80.0 [facility] Comment on above: Order Comment: PATIE NT FASTING Performed By: #### C BCDF #### [facility] [address] [place] [address] Erythrocyte distribution width (RBC) [Ratio] 14.6 % High 11.5 - 14.5 [facility] Comment on above: Order Comment: PATIE NT FASTING Performed By: #### C BCDF #### [facility] [address] [place] [address] Hematocrit (Bld) [Volume fraction] 43.1 % Normal 41.0 - 52.0 [facility] Comment on above: Order Comment: PATIE NT FASTING Performed By: #### C BCDF #### [facility] [address] [place] [address] Hemoglobin (Bld) [Mass/Vol] 13.3 g/dL Low 13.5 - 17.5 [facility] Comment on above: Order Comment: PATIE NT FASTING Performed By: #### C BCDF #### [facility] [address] [place] [address] MCHC (RBC) [Mass/Vol] 30.9 g/dL Low 32.0 - 36.0 [facility] Comment on above: Order Comment: PATIE NT FASTING Performed By: #### C BCDF #### [facility] [address] [place] [address] MCV (RBC) [Entitic vol] 92 fL Normal 80 - 100 [facility] Comment on above: Order Comment: PATIE NT FASTING Performed By: #### C BCDF #### [facility] [address] [place] [address] NUCLEATED RBC 0.0 /100 WBC Normal 0.0-0.0 [facility] Comment on above: Order Comment: PATIE NT FASTING Performed By: #### C BCDF #### [facility] [address] [place] [address] Platelets (Bld) [#/Vol] 267 10*3/uL Normal 150 - 450 [facility] Comment on above: Order Comment: PATIE NT FASTING Performed By: #### C BCDF #### [facility] [address] [place] [address] RBC 4.69 x10E12/L Normal 4.50 - 5.90 [facility] Comment on above: Order Comment: PATIE NT FASTING Performed By: #### C BCDF #### [facility] [address] [place] [address] WBC (Bld) [#/Vol] 7.4 10*3/uL Normal 4.4 - 11.3 [facility] Comment on above: Order Comment: PATIE NT FASTING Performed By: #### C BCDF #### [facility] [address] [place] [address] RED CELL MORPHOLOGYon 2020 CHANELL CELLS Few Normal [facility] Comment on above: Order Comment: PATIE NT FASTING Performed By: #### M ORP2 #### [facility] [address] [place] [address] OVALOCYTES Few Normal [facility] Comment on above: Order Comment: PATIE NT FASTING Performed By: #### M ORP2 #### [facility] [address] [place] [address] POLYCHROMASIA Mild Normal [facility] Comment on above: Order Comment: PATIE NT FASTING Performed By: #### M ORP2 #### [facility] [address] [place] [address] RBC FRAGMENTS Few Normal [facility] Comment on above: Order Comment: PATIE NT FASTING Performed By: #### M ORP2 #### [facility] [address] [place] [address] RBC morphology finding Nom (Bld) See Below Normal [facility] Comment on above: Order Comment: JEREMIAS NT FASTING Performed By: #### M ORP2 #### [facility] [address] [place] [address] No Panel Informationon 01-19 76 1 [facility]-Cardiolo [...] [place] Work Phone: [email or web address] ?RetrieveTestByDateTime?P fprbpeGD=[id number]&Date=1 09-13-2019&Time=15%3a11%3a 03%3a00&TestType=ECG&Site =1&OutputType=PDF&Ext=PDF [facility]o gy[facility] [place] Work Phone: Otheron 11-13-2019 [facility] Complete Blood Count + Diffe rentialon [...] (Bld) [#/Vol] 7.2 {x10E9/L} 4.4 - 11.3 [facility] Work Phone: Complete Blood Count + Differential 0.1 % 0.0 - 0.9 [facility] Work Phone: Comment on above: Immature Granulocyte Count (IG) includes promyelocytes, myelocytes and metamyelocytes but does not include bands. Percent differential counts (%) should be interpreted in the context of the absolute cell counts (cells/L). Lipid Panelon 11-06-2019 Cholesterol [Mass/Vol] 181 mg/dL 0 - 199 [facility] Work Phone: Comment on [...] dosing. Cholesterol in HDL [Mass/Vol] 52.1 mg/dL [facility]ician [facility] Work Phone: Comment on above: . AGE VERY LOW LOW N ORMAL HIGH 0-19 Y < 35 < 40 40-45 ---- 20-24 Y ---- < 40 >45 ---- >24 Y ---- < 40 40-60 >60. Cholesterol in LDL [Mass/Vol] 97 mg/dL 0 - 99 [facility] Work Phone: Comment on above: . NEAR BORD AGE IZABELLA RABLE OPTIMAL HIGH HIGH VERY HIGH 0-19 Y 0 - 109 --- 110-129 >/= 130 ---- 20-24 Y 0 - 119 --- 120-159 >/= 160 ---- >24 Y 0 - 99 100-129 130-159 160-189 >/=190. Cholesterol.total/Chol esterol in HDL [Mass ratio] 3.5 {ratio} [facility] Work Phone: Comment on above: REF VALUESDESIRABLE < 3.4HIGH RISK > 5.0 Triglyceride [Mass/Vol] 158 mg/dL above high threshold 0 - 149 [facility] Physician [facility] Work Phone: Comment on above: [...] Lipid Panel 32 mg/dL 0 - 40 [facility] Work Phone: Metabolic Panelon 11-06-2019 ALP [Catalytic activity/Vol] 70 U/L 33 - 136 [facility] Work Phone: Anion gap [Moles/Vol] 13 mmol/L 10 - 20 [facility] Work Phone: Bilirubin [Mass/Vol] 0.6 mg/dL 0.0 - 1.2 [facility] [address] Work Phone: Calcium [Mass/Vol] 9.4 mg/dL 8.6 - 10.6 [facility] Work Phone: Chloride [Moles/Vol] 99 mmol/L 98 - 107 [facility] [address] Work Phone: CO2 [Moles/Vol] 30 mmol/L 21 - 32 [facility] Work Phone: Creatinine [Mass/Vol] 0.87 mg/dL See Below [facility] Work Phone: Comment on above: Reference Range: 0.5 0 - 1.30 Glucose [Mass/Vol] 89 mg/dL 74 - 99 [facility] Work Phone: Potassium [Moles/Vol] 4.3 mmol/L 3.5 - 5.3 [facility] Work Phone: Protein [Mass/Vol] 7.3 g/dL 6.4 - 8.2 [facility] Work Phone: Sodium [Moles/Vol] 138 mmol/L 136 - 145 [facility] Work Phone: Urea nitrogen [Mass/Vol] 14 mg/dL 6 - 23 [facility] Work Phone: Otheron 11-06-2019 Albumin BCP dye [Mass/Vol] 4.4 g/dL 3.4 - 5.0 [facility] Work Phone: ALT With P-5'-P [Catalytic activity/Vol] 11 U/L 10 - 52 [facility] Work Phone: Comment on above: Patients treated wit h Sulfasalazine may generate falsely decreased results for ALT. AST With P-5'-P [Catalytic activity/Vol] 17 U/L 9 - 39 [facility] Work Phone: >60 >60 [facility] Work Phone: Comment on above: CALCULATIONS OF LUZMARIA MATED GFR ARE PERFORMED USING THE MDRD STUDY EQUATION FOR THE IDMS-TRACEABLE CREATININE METHODS. CLIN CHEM 2007;53:766-72 Culture, urine Bacteria identified Cx Nom (U) Mixed Gram Pos & Gram Neg Org [facility] Work Phone: Bacteria identified Cx Nom (U) Klebsiella pneumoniae sp pneum [facility] Work Phone: Vital Signs Date Time Vital Sign Value Performing Clinician Facility 09-13-2023 11:48-0400 Body height 175.3 cm Rebecca Buck MD Work Phone: [facility] 09-13-2023 11:48-0400 Body mass index (BMI) [Ratio] 25.84 kg/m2 Rebecca Buck MD Work Phone: [facility] 09-13-2023 11:48-0400 Body weight 79.38 kg Rebecca Buck MD Work Phone: [facility] 08-13-2023 09:56-0400 Body height 175.3 cm Rebecca Buck MD Work Phone: [facility] [employer] 08-13-2023 09:56-0400 Body mass index (BMI) [Ratio] 25.84 kg/m2 Rebecca Buck MD Work Phone: [facility] [employer] 08-13-2023 09:56-0400 Body weight 79.38 kg Rebecca Buck MD Work Phone: [facility] [employer] 03-02-2022 18:49-0400 Body temperature 98.01 [degF] Lanette Munguia DO Work Phone: [facility] 03-02-2022 18:49-0400 Diastolic blood pressure 72 mm[Hg] Lanette Munguia DO Work Phone: [facility] 03-02-2022 18:49-0400 Heart rate 94 /min Lanette Munguia DO Work Phone: [facility] 03-02-2022 18:49-0400 Respiratory rate 18 /min Lanette Munguia DO Work Phone: [facility] 03-02-2022 18:49-0400 SaO2% (BldA) [Mass fraction] 98 % Lanette Munguia DO Work Phone: [facility] 03-02-2022 18:49-0400 Systolic blood pressure 104 mm[Hg] Lanette Munguia DO Work Phone: [facility] 03-02-2022 11:55-0400 Body height 175.3 cm Lanette Munguia DO Work Phone: [facility] 03-02-2022 11:55-0400 Body mass index (BMI) [Ratio] 25.84 kg/m2 Lanette Munguia DO Work Phone: [employer] 03-02-2022 11:55-0400 Body weight 79.38 kg Lanette Munguia DO Work Phone: [facility] 12-22-2021 02:08-0400 Diastolic blood pressure 67 mm[Hg] Sharon Olivia MD Work Phone: [facility] 12-22-2021 02:08-0400 Heart rate 77 /min Sharon Olivia MD Work Phone: [facility] 12-22-2021 02:08-0400 Respiratory rate 16 /min Sharon Olivia MD Work Phone: [facility] 12-22-2021 02:08-0400 SaO2% (BldA) [Mass fraction] 96 % Sharon Olivia MD Work Phone: [facility] 12-22-2021 02:08-0400 Systolic blood pressure 108 mm[Hg] Sharon Olivia MD Work Phone: [facility] 12-21-2021 23:52-0400 Body height 175.3 cm Sharon Olivia MD Work Phone: [facility] 12-21-2021 23:52-0400 Body mass index (BMI) [Ratio] 25.84 kg/m2 Sharon Olivia MD Work Phone: [facility] 12-21-2021 23:52-0400 Body temperature 97.9 [degF] Sharon Olivia MD Work Phone: [facility] 12-21-2021 23:52-0400 Body weight 79.38 kg Sharon Olivia MD Work Phone: [facility] 11-01-2021 08:41-0400 Diastolic blood pressure 77 mm[Hg] Dante Kim MD Work Phone: [facility] 11-01-2021 08:41-0400 Heart rate 75 /min Dante Kim MD Work Phone: [facility] 11-01-2021 08:41-0400 Respiratory rate 16 /min Dante Kim MD Work Phone: [facility] 11-01-2021 08:41-0400 SaO2% (BldA) [Mass fraction] 97 % Dante Kim MD Work Phone: [facility] 11-01-2021 08:41-0400 Systolic blood pressure 112 mm[Hg] Dante Kim MD Work Phone: [facility] 10-31-2021 19:13-0400 Body height 177.8 cm Dante Kim MD Work Phone: [facility] 10-31-2021 19:13-0400 Body mass index (BMI) [Ratio] 27.26 kg/m2 Dante Kim MD Work Phone: [facility] 10-31-2021 19:13-0400 Body temperature 98.49 [degF] Dante Kim MD Work Phone: [facility] 10-31-2021 19:13-0400 Body weight 86.18 kg Dante Kim MD Work Phone: [facility] 10-29-2021 07:38-0400 Body temperature 97.81 [degF] Lisa Miguel Angel DO Work Phone: [facility] 10-29-2021 07:38-0400 Diastolic blood pressure 79 mm[Hg] Lisa Miguel Angel DO Work Phone: [facility] 10-29-2021 07:38-0400 Heart rate 80 /min Lisa Miguel Angel DO Work Phone: [facility] 10-29-2021 07:38-0400 Respiratory rate 18 /min Lisa Miguel Angel DO Work Phone: [facility] 10-29-2021 07:38-0400 SaO2% (BldA) [Mass fraction] 96 % Lisa Miguel Angel DO Work Phone: [facility] 10-29-2021 07:38-0400 Systolic blood pressure 123 mm[Hg] Lisa Miguel Angel DO Work Phone: [facility] 10-25-2021 13:55-0400 Body height 170.2 cm Lisa Miguel Angel DO Work Phone: [facility] 10-21-2021 00:57-0400 Body mass index (BMI) [Ratio] 37.58 kg/m2 Lisa Miguel Angel DO Work Phone: [facility] 10-21-2021 00:57-0400 Body weight 108.86 kg Lisa Miguel Angel DO Work Phone: [facility] 07-13-2020 13:21-0500 BMI (Body Mass Index) 40.47 kg/m2 Monika Eliasrt [facility] Work Phone: 07-13-2020 13:21-0500 Body Temperature 98 [degF] Shiela Luís [facility] Work Phone: 07-13-2020 13:21-050 Body weight 124.31 kg Monika Eliasrt [facility] Work Phone: 07-13-2020 13:21-0500 BP Diastolic 78 mm[Hg] Monika Eliasrt [facility] Work Phone: 07-13-2020 13:21-0500 BP Systolic 138 mm[Hg] Monika [facility]asrt [facility] Work Phone: 07-13-2020 13:21-0500 BSA (Body Surface Area) 2.36 m2 Monika Eliasrt [facility] Work Phone: 04-13-2020 15:33-0500 BMI (Body Mass Index) 40.32 kg/m2 [facility] Work Phone: 04-13-2020 15:33-0500 Body weight 123.83 kg Wing Ritter [facility] Work Phone: 04-13-2020 15:33-0500 BP Diastolic 82 mm[Hg] Wing Ritter [facility] Work Phone: Comment on above: Location: [facility]; Position: Sitting 04-13-2020 15:33-0500 BP Systolic 145 mm[Hg] Wing Ritter [facility] Work Phone: Comment on above: Location: [facility]; Position: Sitting 04-13-2020 15:33-0500 BSA (Body Surface Area) 2.36 m2 Wing Ritter [facility] Work Phone: 04-13-2020 15:33-0500 Height 175.26 cm Wing Ritter [facility] Work Phone: 04-13-2020 15:33-0500 Pulse (Heart Rate) 98 /min Wing Ritter [facility] Physician [facility] Work Phone: 04-13-2020 15:33-0500 Pulse Oximetry 98 % Wing Ritter [facility] Physician [facility] Work Phone: Comment on above: Source: 04-13-2020 15:33-0500 0 1 Wing Ritter [facility] Work Phone: Comment on above: Pain Scale 01-20-2020 16:39-0400 Body height 175.26 cm Monika Staley MD [facility] y[facility] [address] [place] Work Phone: 01-20-2020 16:39-0400 Body mass index (BMI) [Ratio] 39.28 kg/m2 Monika Staley MD GM-Ijhcsmkjhf-Ahb [facility] [address] [place] Work Phone: 01-20-2020 16:39-0400 Body surface area Derived from formula 2.33 m2 Monika Staley MD UB-Pgdppvfoso-Dcs [facility] [address] [place] Work Phone: 01-20-2020 16:39-0400 Body weight 120.66 kg Monika Staely MD [facility] [address] [place] Work Phone: 01-20-2020 16:39-0400 Diastolic blood pressure 84 mm[Hg] Monika Staley MD CR-Lznvaylqyu-Rrs r[facility] [address] [place] Work Phone: Comment on above: Location: [facility]; Position: Sitting 01-20-2020 16:39-0400 Heart rate 80 /min Monika Staley MD [facility] [address] [place] Work Phone: 01-20-2020 16:39-0400 SaO2% (BldA) [Mass fraction] 100 % Monika Staley MD PL-Cvkjatkvnh-Vrr r[facility] [address] [place] Work Phone: Comment on above: Source: 01-20-2020 16:39-0400 Systolic blood pressure 144 mm[Hg] Monika Staley MD, [facility]iology[facility] [address] [place] Work Phone: Comment on above: Location: [facility]; Position: Sitting 11-06-2019 15:29-0400 BMI (Body Mass Index) 38.31 kg/m2 Monika Staley [facility] Work Phone: 11-06-2019 15:29-0400 Body Temperature 97.6 [degF] Monika Staley [facility] Work Phone: 11-06-2019 15:29-0400 Body weight 117.66 kg Monika Staley [facility] Work Phone: 11-06-2019 15:29-0400 BP Diastolic 62 mm[Hg] Monika Staley [facility] Work Phone: 11-06-2019 15:29-0400 BP Systolic 140 mm[Hg] Monika Staley [facility] Work Phone: 11-06-2019 15:29-0400 BSA (Body Surface Area) 2.31 m2 Monika Staley [facility] Work Phone: 11-06-2019 15:29-0400 Height 175.26 cm Monika Staley [facility] Work Phone: Encounters Encounter Date Encounter Type Care Provider Facility Start: 12-22-2024 ambulatory Monika Carlos ty:[facility] Start: 12-18-2024 ambulatory Monika Carlos ty:[facility] Start: 12-15-2024 ambulatory Monika Carlos ty:[facility] Start: 12-11-2024 ambulatory Monika Carlos ty:[facility] Start: 12-08-2024 ambulatory Shiela Luís Facili ty:[facility] Start: 12-04-2024 ambulatory Shiela Luís Facili ty:[facility] Start: 12-02-2024 ambulatory Mahvilmaer kka flash OLS Facility:[facility] Start: 12-01-2024 ambulatory Shiela Luís Facili ty:[facility] Start: 11-28-2024 ambulatory Shiela Luís Facili ty:[facility] Start: 11-27-2024 ambulatory Shiela Luís Facili ty:[facility] Start: 11-24-2024 ambulatory Shiela Luís Facili ty:[facility] Start: 11-20-2024 ambulatory Shiela Luís Facili ty:[facility] Start: 11-17-2024 ambulatory Shiela Luís Facili ty:[facility] Start: 11-13-2024 ambulatory Shiela Luís Facili ty:[facility] Start: 11-10-2024 [facility] Start: [facility]24 [facility] Start: 11-03-2024 ambulatory Shiela Luís Facili ty:[facility] Start: 10-30-2024 ambulatory Shiela Luís Facili ty:[facility] Start: 10-30-2024 Registered [facility] [employer] Start: 10-27-2024 [facility] Start: 10-27-2024 Registered Referred [facility] [employer] Start: 10-23-2024 ambulatory Shiela Luís Facili ty:[facility] Start: 10-23-2024 Registered Referred [facility] [facility] [employer] Start: 10-20-2024 [facility] Start: 10-20-2024 Registered Referred Karon [employer] Start: 10-16-2024 ambulatory Shiela Luís Facili ty:[facility] Start: 10-16-2024 Registered Referred Karon casillas MD -[employer] [place] [employer] Start: 10-13-2024 ambulatory Shiela Luís Facili ty:[facility] Start: 10-13-2024 Registered Referred Carlos Cavazos - [employer] Start: 10-09-2024 ambulatory Shiela Luís Facili ty:[facility] Start: 10-09-2024 Registered Referred Karon casillas MD -[employer] [place] [employer] Start: 10-06-2024 ambulatory Shiela Luís Facili ty:[facility] Start: 10-06-2024 Registered Referred Carlos Cavazos - [employer] Start: 10-02-2024 ambulatory Shiela Luís Facili ty:[facility] Start: 10-02-2024 Registered Referred Karon casillas MD -[employer] Start: 09-30-2024 End: 09-30-[address] Monika Staley MD Work Phone: [facility] Work Phone: Start: 09-30-2024 End: 09-30-2024 Departed Referred Karon Corrales MD -[employer] Start: 09-30-2024 Registered Referred Karon casillas MD -[employer] Start: 09-30-2024 End: 09-30-2024 ambulatory Karon NOVAK Facility:[facility] Start: 09-25-2024 ambulatory Shiela Luís Facili ty:[facility] Start: 09-25-2024 Registered Referred Karon casillas MD -[employer] Start: 09-22-2024 End: 09-22-[address] Monika Staley MD Work Phone: -[employer] Start: 09-22-2024 End: 09-22-2024 Departed Referred Karon Corrales MD -[employer] [facility] [employer] Start: 09-22-2024 Registered Referred Karon casillas MD -[employer] Start: 09-22-2024 End: 09-22-2024 ambulatory Shiela Luís Facility:[facility] Start: 09-18-2024 End: 09-18-[address] Monika Staley MD Work Phone: -[employer] Start: 09-18-2024 End: 09-18-2024 Departed Referred Karon Corrales MD -[employer] Start: 09-18-2024 Registered Referred Karon casillas MD -[employer] Start: 09-18-2024 End: 09-18-2024 ambulatory Shiela Luís Facility:[facility] Start: 09-15-2024 End: 09-15-[address] Monika Staley MD Work Phone: [facility] Work Phone: Start: 09-15-2024 End: 09-15-2024 Departed Referred Carlos Cavazos -[employer] Start: 09-15-2024 Registered Referred Carlos Cavazos - [employer] Start: 09-15-2024 End: 09-15-2024 ambulatory Monika Horner Luís Facility:[facility] Start: 09-11-2024 [facility] Start: 09-11-2024 Registered Referred Karon casillas MD -[employer] Start: 09-08-2024 End: 09-08-[address] Monika Staley MD Work Phone: [facility] Work Phone: Start: 09-08-2024 End: 09-08-2024 Departed Referred Karon Corrales MD -[employer] [place] [employer] Start: 09-08-2024 Registered Referred Karon casillas MD -[employer] Start: 09-08-2024 End: 09-08-2024 ambulatory Karon NOVAK Facility:[facility] Start: 09-04-2024 End: 09-04-2024 Departed Referred Calros Cavazos -[employer] Start: 09-04-2024 Registered Referred Carlos Cavazos - [employer] Start: 09-04-2024 End: 09-04-[address] [facility] Facility:[facility] Start: 09-01-2024 End: 09-01-[address] Monika Staley MD Work Phone: [facility] Work Phone: Start: 09-01-2024 End: 09-01-2024 Departed Referred Carlos Cavazos -[employer] Start: 09-01-2024 Registered Referred Carlos Cavazos - [employer] Start: 09-01-2024 End: 09-01-[address] [facility] Facility:[facility] Start: 08-28-2024 End: 08-28-[address] Monika Staley MD Work Phone: [facility] Work Phone: Start: 08-28-2024 End: 08-28-2024 Departed Referred Carlos [employer] Start: 08-28-2024 Registered Referred Carlos Cavazos - [employer] Start: 08-28-2024 End: 08-28-[address] [facility] Facility:[facility] Start: 08-25-2024 End: 08-25-[address] Monika Staley MD Work Phone: [facility] Work Phone: Start: 08-25-2024 End: 08-25-2024 Departed Referred Karon Corrales MD -[employer] Start: 08-25-2024 Registered Referred Karon casillas MD -[employer] [facility] [employer] Start: 08-25-2024 End: 08-25-2024 ambulatory Karon NOVAK Facility:[facility] Start: 08-21-2024 End: 08-21-[address] Monika Staley MD Work Phone: [facility] Work Phone: Start: 08-21-2024 End: 08-21-2024 Departed Referred Karon Corrales MD -[employer] Start: 08-21-2024 Registered Referred Karon casillas MD -[employer] [place] [employer] Start: 08-21-2024 End: 08-21-[address] [facility] Facility:[facility] Start: 08-18-2024 End: 08-18-[address] Monika Staley MD Work Phone: [facility] Work Phone: Start: 08-18-2024 End: 08-18-2024 Departed Referred Karon Corrales MD -[facility] [place] [employer] Start: 08-18-2024 Registered Referred Karon casillas MD -[facility] [place] [employer] Start: 08-18-2024 End: 08-18-[address] [facility] Facility:[facility] Start: 08-14-2024 End: 08-14-[address] Monika Staley MD Work Phone: [facility] Work Phone: Start: 08-14-2024 End: 08-14-2024 Departed Referred Karon Corrales MD -[facility] [place] [employer] Start: 08-14-2024 Registered Referred Karon casillas MD -[facility] [employer] Start: 08-14-2024 End: 08-14-[address] [facility] Facility:[facility] Start: 08-11-2024 End: 08-11-2024 Departed Referred Karon Corrales MD -[facility] [employer] Start: 08-11-2024 Registered Referred Karon casillas MD -[facility] [place] [employer] Start: 08-11-2024 End: 08-11-[address] [facility] Facility:[facility] Start: 08-07-2024 End: 08-07-2024 Departed Referred Carlos Maribelviri -[facility] Start: 08-07-2024 Registered Referred Carlos Maribelsaviri - [facility] [place] [facility] Start: 08-07-2024 End: 08-07-[address] [facility] Facility:[facility] Start: 08-04-2024 End: 08-04-[address] Monika Staley MD Work Phone: [facility] Work Phone: Start: 08-04-2024 End: 08-04-2024 Departed Referred Carlos Kenny -[facility] [place] [facility] Start: 08-04-2024 Registered Referred Carlos Kenny - [facility] [employer] Start: 08-04-2024 End: 08-04-[address] [facility] Facility:[facility] Start: 07-31-2024 End: 07-31-[address] Monika Staley MD Work Phone: [facility] Work Phone: Start: 07-31-2024 End: 07-31-2024 Departed Referred Karon Corrales MD -[facility] [employer] Start: 07-31-2024 Registered Referred Karon casillas MD -[facility] [place] [employer] Start: 07-31-2024 End: 07-31-2024 ambulatory Karon NOVAK Facility:[facility] Start: 07-28-2024 End: 07-28-[address] Monika Staley MD Work Phone: [facility] Work Phone: Start: 07-28-2024 End: 07-28-2024 Departed Referred Karon Corrales MD -[facility] [place] [employer] Start: 07-28-2024 Registered Referred Karon casillas MD -[facility] [place] [facility] Start: 07-28-2024 End: 07-28-2024 ambulatory Monika Staley Facility:[facility] Start: 07-25-2024 End: 07-25-[address] Monika Staley MD Work Phone: [facility] Work Phone: Start: 07-25-2024 End: 07-25-2024 Departed Referred Carlos Cavazos -[facility] [place] [facility] Start: 07-25-2024 Registered Referred Carlos Cavazos - [employer] [place] [facility] Start: 07-24-2024 End: 07-25-[address] Monika Staley MD Work Phone: [facility] Work Phone: Start: 07-24-2024 End: 07-24-2024 Departed Referred Karon Corrales MD -[facility] [place] [employer] Start: 07-24-2024 Registered Referred Karon casillas MD -[facility] [place] [employer] Start: 07-24-2024 End: 07-24-2024 ambulatory Karon NOVAK Facility:[facility] Start: 07-21-2024 End: 07-21-[address] Monika Staley MD Work Phone: [facility] Work Phone: Start: 07-21-2024 End: 07-21-2024 Departed Referred Karon Corrales MD -[facility] [employer] Start: 07-21-2024 Registered Referred Karon casillas MD -[facility] [employer] Start: 07-21-2024 End: 07-21-2024 ambulatory Monika Staley Facility:[facility] Start: 07-17-2024 End: 07-17-[address] Monika Staley MD Work Phone: [facility] Work Phone: Start: 07-17-2024 End: 07-17-2024 Departed Referred Karon Corrales MD -[facility] [place] [employer] Start: 07-17-2024 Registered Referred Karon casillas MD -[facility] [employer] Start: 07-17-2024 End: 07-17-2024 ambulatory Karon NOVAK Facility:[facility] Start: 07-14-2024 End: 07-14-[address] Monika Staley MD Work Phone: [facility] Work Phone: Start: 07-14-2024 End: 07-14-2024 Departed Referred Carlos Cavazos -[employer] [facility] [employer] Start: 07-14-2024 Registered Referred Carlos Cavazos - [employer] [facility] [place] [facility] Start: 07-14-2024 End: 07-14-2024 ambulatory Monika Staley Facility:[facility] Start: 07-11-2024 End: 07-11-[address] Monika Staley MD Work Phone: [facility] Work Phone: Start: 07-11-2024 End: 07-11-2024 Departed Referred Carlos Cavazos -[employer] [facility] [employer] Start: 07-11-2024 Registered Referred Carlos Cavazos - [employer] [facility] Start: 07-11-2024 End: 07-11-2024 ambulatory Monika Staley Facility:[facility] Start: 07-07-2024 End: 07-07-[address] Monika Staley MD Work Phone: [facility] Work Phone: Start: 07-07-2024 End: 07-07-2024 Departed Referred Karon Corrales MD -[employer] [facility] [place] [facility] Start: 07-07-2024 Registered Referred [facility] -[facility] Start: 07-07-2024 End: 07-07-2024 ambulatory Karon NOVAK Facility:[facility] Start: 07-03-2024 End: 07-03-[address] Monika Staley MD Work Phone: [facility] Work Phone: Start: 07-03-2024 End: 07-03-2024 Departed Referred Kvng Crisostomo MD -[employer] [facility] Start: 07-03-2024 Registered Referred Kvng Crisostomo MD -[employer] [place] [facility] Start: 07-03-2024 End: 07-03-2024 ambulatory Monika Horner Luís Facility:[facility] Start: 06-30-2024 End: 06-30-[address] Monika Staley MD Work Phone: [facility] Work Phone: Start: 06-30-2024 End: 06-30-2024 Departed Referred Kvng Crisostomo MD -[employer] [place] [facility] Start: 06-30-2024 Registered Referred Kvng Crisostomo MD -[employer] [facility] Start: 06-30-2024 End: 06-30-2024 ambulatory Shiela Luís Facility:[facility] Start: 06-26-2024 ambulatory Monika Staley [facility] ty:[facility] Start: 06-26-2024 Registered Referred Kvng Crisostomo MD -[employer] [facility] [employer] Start: 06-23-2024 End: 06-23-[address] Monika Staley MD Work Phone: [facility] Work Phone: Start: 06-23-2024 End: 06-23-2024 Departed Referred Carlos Cavazos -[employer] [place] [facility] Start: 06-23-2024 Registered Referred Carlos Cavazos - [employer] [place] [facility] Start: 06-23-2024 End: 06-[facility] Start: 06-19-2024 End: 06-19-[address] Monika Staley MD Work Phone: [facility] Work Phone: Start: 06-19-2024 End: 06-19-2024 Departed Referred Kvng Crisostomo MD -[facility] [employer] Start: 06-19-2024 Registered Referred Kvng Crisostomo MD -[employer] [facility] [employer] Start: 06-19-2024 End: 06-19-[address] [facility] Facility:[facility] Start: 06-16-2024 End: 06-16-[address] Monika Staley MD Work Phone: [facility] Work Phone: Start: 06-16-2024 End: 06-16-2024 Departed Referred Kvng Crisostomo MD -[employer] [facility] [employer] Start: 06-16-2024 Registered Referred Kvng Crisostomo MD -[employer] [facility] [employer] Start: 06-16-2024 End: 06-16-[address] [facility] Facility:[facility] Start: 06-12-2024 End: 06-12-[address] Monika Staley MD Work Phone: [facility] Work Phone: Start: 06-12-2024 End: 06-12-2024 Departed Referred Kvng Crisostomo MD -[employer] [facility] [employer] Start: 06-12-2024 Registered Referred Kvng Crisostomo MD -[employer] Start: 06-12-2024 End: 06-12-[address] [facility] Facility:[facility] Start: 06-09-2024 End: 06-09-[address] Monika Staley MD Work Phone: [facility] Work Phone: Start: 06-09-2024 End: 06-09-2024 Departed Referred Carlos Cavazos -[employer] [place] [employer] Start: 06-09-2024 Registered Referred Carlos Cavazos - [employer] [place] [facility] Start: 06-09-2024 End: 06-09-[address] [facility] Facility:[facility] Start: 06-05-2024 End: 06-05-[address] Monika Staley MD Work Phone: [facility] Work Phone: Start: 06-05-2024 End: 06-05-2024 Departed Referred Kvng Crisostomo MD -[facility] [employer] Start: 06-05-2024 End: 06-05-[address] [facility] Facility:[facility] Start: 06-02-2024 End: 06-02-[address] Monika Staley MD Work Phone: [facility] Work Phone: Start: 06-02-2024 End: 06-02-2024 Departed Referred Kvng Crisostomo MD -[facility] [employer] Start: 06-02-2024 Registered Referred Kvng Crisostomo MD -[employer] [facility] [employer] Start: 06-02-2024 End: 06-02-2024 [facility] Start: 05-29-2024 End: 05-29-[address] Monika Staley MD Work Phone: [facility] Work Phone: Start: 05-29-2024 End: 05-29-2024 Departed Referred Kvng Crisostomo MD -[employer] Start: 05-29-2024 Registered Referred Kvng Crisostomo MD -[employer] [facility] [employer] Start: 05-29-2024 End: 05-29-2024 [facility] Start: 05-26-2024 End: 05-26-[address] Monika Staley MD Work Phone: [facility] Work Phone: Start: 05-26-2024 End: 05-26-2024 Departed Referred Carlos [facility] [place] [facility] Start: 05-26-2024 Registered Referred Carlos [facility] Start: 05-26-2024 End: 05-26-2024 [facility] Start: 05-22-[address] [facility] Facili ty:[facility] Start: 05-22-2024 Registered Referred Kvng Crisostomo MD -[employer] [place] [employer] Start: 05-20-2024 End: 05-20-2024 Departed Referred Kvng Crisostomo MD -[employer] [place] [facility] Start: 05-19-2024 End: 05-20-[address] [facility] Facility:[facility] Start: 05-19-2024 Registered Referred Kvng Crisostomo MD -[employer] [facility] [employer] Start: 05-15-2024 End: 05-15-2024 Departed Referred Kvng Crisostomo MD -[employer] [place] [facility] Start: 05-15-2024 End: 05-15-[address] [facility] Facility:[facility] Start: 05-12-2024 End: 05-12-2024 Departed Referred Carlos [facility] [place] [employer] Start: 05-12-2024 End: 05-12-[address] [facility] Facility:[facility] Start: 05-09-2024 End: 05-09-2024 Departed Referred Kvng [facility] [place] [facility] Start: 05-09-2024 End: 05-09-2024 ambulatory Kvng NOVAK Facility:[facility] Start: 05-08-2024 End: 05-08-2024 Departed Referred Kvng Crisostomo MD -[employer] [facility] [employer] Start: 05-08-2024 End: 05-08-[address] [facility] Facility:[facility] Start: 05-05-2024 End: 05-05-2024 Departed Referred Kvng Crisostomo MD -[employer] [facility] [employer] Start: 05-05-2024 End: 05-05-2024 ambulatory Shiela Luís Facility:[facility] Start: 05-01-2024 End: 05-01-2024 Departed Referred Kvng Crisostomo MD -[employer] [facility] Start: 05-01-2024 End: 05-01-2024 ambulatory Kvng NOVAK Facility:[facility] Start: 04-28-2024 End: 04-28-2024 Departed Referred Carlos [facility] [place] [facility] Start: 04-28-2024 End: 04-28-2024 [facility] Start: 04-24-2024 End: 04-24-2024 Departed Referred Kvng Crisostomo MD -[employer] [facility] Start: 04-24-2024 End: 04-24-2024 ambulatory Kvng NOVAK Facility:[facility] Start: 04-21-2024 End: 04-21-2024 Departed Referred Carlos [facility] [employer] Start: 04-21-2024 End: 04-21-2024 [facility] Start: 04-17-2024 ambulatory Shiela Luís Facili ty:[facility] Start: 04-17-2024 Registered Referred Kvng Crisostomo MD -[employer] Start: 04-14-2024 ambulatory Shiela Luís Facili ty:[facility] Start: 04-14-2024 Registered Referred Kvng Crisostomo MD -[employer] [place] [facility] Start: 04-10-2024 End: 04-10-2024 Departed Referred Kvng Crisostomo MD -[employer] [place] [facility] Start: 04-10-2024 End: 04-10-2024 [facility] Start: 04-07-2024 End: 04-07-2024 Departed Referred Carlos [facility] [employer] Start: 04-07-2024 End: 04-07-2024 ambulatory Shiela Luís Facility:[facility] Start: 04-04-2024 ambulatory Shiela Luís Facili ty:[facility] Start: 04-04-2024 Registered Referred Kvng Crisostomo MD -[employer] [place] [facility] Start: 03-31-2024 End: 03-31-2024 Departed Referred Carlos Cavazos [employer] [facility] Start: 03-31-2024 End: 03-31-2024 ambulatory Shiela Luís Facility:[facility] Start: 03-27-2024 End: 03-27-2024 Departed Referred [facility] [place] [facility] Start: 03-27-2024 End: 03-27-2024 ambulatory Shiela Luís Facility:[facility] Start: 03-24-2024 End: 03-24-2024 Departed Referred Kvng Crisostomo MD -[employer] [place] [facility] Start: 03-24-2024 End: 03-24-2024 ambulatory Shiela Luís Facility:[facility] Start: 03-20-2024 End: 03-20-2024 Departed Referred [facility] [facility] [place] [facility] Start: 03-20-2024 End: 03-20-2024 ambulatory [facility] Facility:[facility] Start: 03-19-2024 End: 03-19-2024 Departed Referred Kvng Crisostomo MD -[employer] [place] [facility] Start: 03-19-2024 End: 03-19-2024 ambulatory Kvng NOVAK Facility:[facility] Start: 03-18-2024 End: 03-18-2024 Departed Referred [facility] Start: 03-18-2024 End: 03-18-2024 ambulatory Shiela Luís Facility:[facility] Start: 03-17-2024 End: 03-17-2024 Departed Referred [facility] Start: 03-17-2024 End: 03-17-2024 ambulatory Shiela Luís Facility:[facility] Start: 03-14-2024 End: 03-14-2024 [facility] Start: 03-14-2024 End: 03-14-2024 ambulatory Shiela Luís Facility:[facility] Start: 03-13-2024 End: 03-13-2024 [facility] Start: 03-13-2024 End: 03-13-2024 ambulatory Shiela Luís Facility:[facility] Start: 03-10-2024 End: 03-10-2024 ambulatory Shiela Luís Facility:[facility] Start: 03-06-2024 End: 03-06-2024 ambulatory Shiela Luís Facility:[facility] Start: 03-03-2024 End: 03-03-2024 ambulatory Shiela Luís Facility:[facility] Start: 02-28-2024 End: 02-28-2024 ambulatory Shiela Luís Facility:[facility] Start: 02-25-2024 End: 02-25-2024 ambulatory Shiela Luís Facility:[facility] Start: 02-21-2024 End: 02-21-2024 ambulatory Shiela Luís Facility:[facility] Start: 02-18-2024 End: 02-18-2024 ambulatory Shiela Luís Facility:[facility] Start: 02-14-2024 End: 02-14-2024 ambulatory Shiela Luís Facility:[facility] Start: 02-12-2024 End: 02-12-2024 ambulatory Shiela Luís Facility:[facility] Start: 02-11-2024 End: 02-11-2024 ambulatory Shiela Luís Facility:[facility] Start: 02-08-2024 End: 02-08-2024 ambulatory Shiela Luís Facility:[facility] Start: 02-07-2024 End: 02-07-2024 ambulatory Shiela Luís Facility:[facility] Start: 02-04-2024 End: 02-04-2024 ambulatory Shiela Luís Facility:[facility] Start: 02-01-2024 ambulatory Shiela Luís Facili ty:[facility] Start: 01-30-2024 End: 01-30-2024 ambulatory Shiela Luís Facility:[facility] Start: 01-29-2024 End: 01-29-2024 ambulatory Shiela Luís Facility:[facility] Start: 01-21-2024 End: 01-21-2024 ambulatory Shiela Luís Facility:[facility] Start: 01-14-2024 End: 01-14-2024 ambulatory Shiela Luís Facility:[facility] Start: 01-11-2024 ambulatory Shiela Luís Facili ty:[facility] Start: 01-10-2024 End: 01-10-2024 ambulatory Shiela Luís Facility:[facility] Start: 01-08-2024 End: 01-08-2024 ambulatory Shiela Luís Facility:[facility] Start: 01-01-2024 End: 01-02-2024 ambulatory Shiela Luís Facility:[facility] Start: 12-27-2023 End: 12-27-2023 ambulatory Shiela Luís Facility:[facility] Start: 12-24-2023 End: 12-24-2023 ambulatory Shiela Luís Facility:[facility] Start: 09-13-2023 End: 09-13-2023 ambulatory [facility] Start: 09-13-2023 End: 09-13-2023 Office outpatient visit 25 minutes Rebecca Buck MD Work Phone: [facility] Comment on above: Left flank pain (Christina magui Dx); BPH with urinary obstruction; History of kidney stones Start: 09-06-2023 End: 09-07-2023 ambulatory [facility] Start: 09-06-2023 End: 09-06-2023 Subsequent hospital visit by physician Rebecca Buck MD Work Phone: [facility] CT Imaging Comment on above: Left flank pain; Calculus of ureter Start: 08-31-2023 ambulatory Eloise Stern RN [facility] Clinical Communication Start: 08-31-2023 Patient encounter procedure Eloise Stern RN [facility] Clinical Communication Start: 08-21-2023 Telephone encounter Rebecca Buck MD Work Phone: [facility] Clinical Communication Comment on above: CT appt Boaz advice Start: 08-21-2023 Registered Ref[facility] Start: 08-13-2023 End: 08-13-2023 ambulatory [facility] Start: 08-13-2023 End: 08-13-2023 Office outpatient new 45 minutes Rebecca Buck MD Work Phone: [facility] Comment on above: Left flank pain (Christina magui Dx); Calculus of ureter; Disease of prostate; BPH with urinary obstruction Start: 08-03-2023 End: 08-03-2023 ambulatory [facility] Work Phone: Start: 08-03-2023 End: 08-03-2023 Departed Referred [facility] Start: 07-20-2023 End: 07-20-2023 ambulatory [facility] Work Phone: Start: 07-20-2023 End: 07-20-2023 Departed Referred [facility] Kathy [facility] Start: 07-20-2023 Registered Ref[facility] Start: 07-18-2023 End: 07-18-2023 ambulatory [facility] Work Phone: Start: 07-18-2023 End: 07-18-2023 Departed Referred [facility] Mavatar [facility] Start: 07-18-2023 Registered [facility] Start: 07-16-2023 End: 07-16-2023 ambulatory [facility] Work Phone: Start: 07-16-2023 End: 07-16-2023 Departed Referred [facility] Mavatar [facility] Start: 07-16-2023 Registered Ref[facility] Mavatar [facility] Start: 07-13-2023 End: 07-13-2023 ambulatory [facility] Work Phone: Start: 07-13-2023 End: 07-13-[address] [facility] [place] [facility] Start: 07-13-2023 [facility] Start: 07-12-2023 End: 07-12-2023 ambulatory [facility] Work Phone: Start: 07-12-2023 End: 07-12-[address] [facility] Start: 07-12-2023 [facility] Start: 07-05-2023 End: 07-05-2023 ambulatory [facility] Work Phone: Start: 07-05-2023 End: 07-05-[address] [facility] [place] [facility] Start: 07-05-2023 [facility] [place] [facility] Start: 07-02-2023 [facility] [place] [facility] Start: 06-28-2023 End: 06-28-2023 ambulatory [facility] Work Phone: Start: 06-28-2023 End: 06-28-[address] [facility] [place] [facility] Start: 06-28-2023 [facility] Start: 06-25-2023 Telephone encounter Rebecca Buck MD Work Phone: [facility] Start: 06-25-2023 End: 06-25-2023 ambulatory [facility] Work Phone: Start: 06-25-2023 End: 06-25-[address] [facility] [place] [facility] Start: 06-25-2023 [facility] Start: 06-21-2023 End: 06-21-2023 ambulatory [facility] Work Phone: Start: 06-21-2023 End: 06-21-[address] [facility] Start: 06-21-2023 Registered Referred [facility] [place] [facility] Start: 06-13-2023 End: 06-13-2023 ambulatory [facility] Work Phone: Start: 06-13-2023 End: 06-13-[address] [facility] [place] [facility] Start: 06-06-2023 End: 06-06-2023 ambulatory [facility] Work Phone: Start: 06-06-2023 End: 06-06-[address] [facility] [place] [facility] Start: 06-06-2023 [facility] [place] [facility] Start: 05-23-2023 End: 05-23-2023 ambulatory [facility] Work Phone: Start: 05-23-2023 End: 05-23-2023 Departed Referred [facility] [facility] Start: 05-09-2023 End: 05-09-[address] [facility] Start: 05-09-2023 [facility] [place] [facility] Start: 04-23-2023 End: 04-23-[address] [facility] Start: 04-09-2023 End: 04-09-2023 ambulatory [facility] Work Phone: Start: 04-09-2023 End: 04-09-[address] [facility] Start: 04-09-2023 [facility] Start: 04-02-2023 End: 04-02-2023 ambulatory [facility] Work Phone: Start: 04-02-2023 End: 04-02-2023 Departed Referred [facility] Start: 04-02-2023 Registered Referred [facility] [facility] Start: 03-26-2023 End: 03-26-2023 ambulatory [facility] Work Phone: Start: 03-26-2023 End: 03-26-2023 Departed Referred [facility] [place] [facility] Start: 03-26-2023 Registered Referred [facility] Start: 03-22-2023 End: 03-22-2023 ambulatory [facility] Work Phone: Start: 03-22-2023 End: 03-22-[address] [facility] Start: 03-22-2023 [facility] Start: 03-08-2023 End: 03-08-2023 ambulatory [facility] Work Phone: Start: 03-08-2023 End: 03-08-[address] [facility] Start: 02-22-2023 End: 02-22-2023 ambulatory [facility] Work Phone: Start: 02-22-2023 End: 02-22-[address] [facility] Start: 02-22-2023 Registered Referred [facility] [facility] [employer] [facility] Start: 02-15-2023 End: 02-15-2023 ambulatory [facility] Work Phone: Start: 02-15-2023 End: 02-15-[address] [facility] Start: 02-15-2023 Registered [facility] [employer] Start: 02-08-2023 End: 02-08-2023 ambulatory [facility] Work Phone: Start: 02-08-2023 End: 02-08-2023 Departed Referred [facility] [employer] [facility] Start: 01-31-2023 End: 01-31-2023 ambulatory [facility] Work Phone: Start: 01-31-2023 End: 01-31-[address] [facility] Start: 01-31-2023 [facility] Start: 01-29-2023 End: 01-29-[address] [facility] Start: 01-29-2023 [facility] Start: 01-26-2023 End: 01-26-[address] [facility] Start: 01-26-2023 [facility] Start: 01-24-2023 End: 01-24-[address] [facility] Start: 01-24-2023 [facility] Start: 01-22-2023 End: 01-22-2023 ambulatory [facility] Work Phone: Start: 01-22-2023 End: 01-22-[address] [facility] Start: 01-22-2023 [facility] Start: 01-10-2023 End: 01-10-2023 ambulatory [facility] Work Phone: Start: 01-10-2023 End: 01-10-[address] [facility] Start: 01-10-2023 [facility] Start: 12-27-2022 End: 12-27-2022 ambulatory [facility] Work Phone: Start: 12-27-2022 End: 12-27-[address] [facility] Start: 12-27-2022 Registered [facility] Start: 12-21-2022 End: 12-21-2022 ambulatory [facility] Work Phone: Start: 12-21-2022 End: 12-21-2022 Departed [facility] [employer] Start: 12-21-2022 Registered [facility] Start: 12-14-2022 End: 12-14-2022 ambulatory [facility] Work Phone: Start: 12-14-2022 End: 12-14-[address] [facility] Start: 12-14-2022 Registered [facility] Start: 12-07-2022 End: 12-07-2022 ambulatory [facility] Work Phone: Start: 12-07-2022 End: 12-07-2022 Departed Referred [facility] Start: 12-07-2022 Registered [facility] [employer] Start: 11-24-2022 End: 11-24-2022 ambulatory [facility] Work Phone: Start: 11-24-2022 End: 11-24-2022 Departed [facility]erred [facility] Start: 11-24-2022 Registered [facility] [employer] Start: 11-23-2022 End: 11-23-2022 ambulatory [facility] Work Phone: Start: 11-23-2022 End: 11-23-2022 Departed [facility] [employer] Start: 11-23-2022 Registered [facility] [employer] Start: 11-22-2022 End: 11-22-2022 ambulatory [facility] Work Phone: Start: 11-22-2022 End: 11-22-2022 Departed [facility]erred [facility] [employer] [facility] Start: 11-22-2022 Registered [facility] Start: 11-09-2022 End: 11-09-2022 ambulatory [facility] Work Phone: Start: 11-09-2022 End: 11-09-[address] [facility] Start: 11-09-2022 [facility] Start: 10-26-2022 End: 10-26-[address] [facility] Start: 10-26-2022 [facility] Start: 10-12-2022 End: 10-12-2022 ambulatory [facility] Work Phone: Start: 10-12-2022 End: 10-12-[address] [facility] Start: 10-12-2022 [facility] Start: 10-05-2022 End: 10-05-[address] [facility] Start: 10-05-2022 [facility] Start: 09-28-2022 End: 09-28-2022 ambulatory [facility] Work Phone: Start: 09-28-2022 End: 09-28-[address] [facility] Start: 09-14-2022 End: 09-14-[address] [facility] Start: 08-31-2022 End: 08-31-[address] [facility] Start: 08-31-2022 [facility] Start: 08-23-2022 End: 08-23-2022 ambulatory [facility] Work Phone: Start: 08-23-2022 End: 08-23-2022 Departed [facility] [employer] Start: 08-23-2022 [facility]istered [facility] [employer] Start: 08-17-2022 End: 08-17-2022 ambulatory [facility] Work Phone: Start: 08-17-2022 End: 08-17-2022 Departed [facility] [employer] Start: 08-17-2022 Registered [facility] Start: 08-14-2022 End: 08-14-2022 ambulatory [facility] Work Phone: Start: 08-14-2022 End: 08-14-[address] [facility] Start: 08-14-2022 [facility] Start: 07-31-2022 End: 07-31-2022 ambulatory [facility] Work Phone: Start: 07-31-2022 End: 07-31-2022 Departed [facility] [employer] Start: 07-31-2022 [facility] [employer] Start: 07-24-2022 End: 07-24-2022 ambulatory [facility] Work Phone: Start: 07-24-2022 End: 07-24-2022 Departed [facility] [employer] [facility] Start: 07-24-2022 Registered [facility]erred [facility] Start: 07-20-2022 End: 07-20-2022 Departed [facility] [employer] Start: 07-20-2022 Registered Referred [facility] [employer] Start: 07-17-2022 End: 07-17-2022 Departed [facility] [employer] Start: 07-17-2022 Registered [facility] [employer] Start: 07-11-2022 [facility] Start: 07-10-2022 End: 07-10-2022 ambulatory [facility] Work Phone: Start: 07-10-2022 End: 07-10-[address] [facility] Start: 07-10-2022 [facility] Start: 07-03-2022 End: 07-03-2022 ambulatory [facility] Work Phone: Start: 07-03-2022 End: 07-03-[address] [facility] Start: 07-03-2022 [facility] Start: 06-27-2022 End: 06-27-2022 ambulatory [facility] Work Phone: Start: 06-27-2022 End: 06-27-[address] [facility] Start: 06-27-2022 [facility] Start: 06-13-2022 End: 06-13-2022 ambulatory [facility] Work Phone: Start: 06-13-2022 End: 06-13-[address] [facility] Start: 06-13-2022 [facility] Start: 06-06-2022 End: 06-06-2022 ambulatory [facility] Work Phone: Start: 06-06-2022 End: 06-06-[address] [facility] Start: 06-06-2022 [facility] Start: 05-30-2022 End: 05-30-2022 ambulatory [facility] Work Phone: Start: 05-30-2022 End: 05-30-2022 Departed [facility] Start: 05-30-2022 Registered [facility] Start: 05-16-2022 End: 05-16-2022 ambulatory [facility] Work Phone: Start: 05-16-2022 End: 05-16-2022 Departed Referred [facility] Start: 05-16-2022 Registered [facility] Start: 05-02-2022 End: 05-02-2022 ambulatory [facility] Work Phone: Start: 05-02-2022 End: 05-02-[address] [facility] Start: 05-02-2022 [facility] Start: 04-27-2022 End: 04-27-2022 ambulatory [facility] Work Phone: Start: 04-27-2022 End: 04-27-[address] [facility] Start: 04-27-2022 [facility] Start: 04-26-2022 End: 04-26-2022 ambulatory [facility] Work Phone: Start: 04-26-2022 End: 04-26-[address] [facility] Start: 04-11-2022 End: 04-11-2022 ambulatory [facility] Work Phone: Start: 04-11-2022 End: 04-11-2022 Departed Referred [facility] Start: 03-28-2022 End: 03-28-2022 Departed [facility] [employer] Start: 03-28-2022 Registered [facility] Start: 03-23-2022 End: 03-23-2022 Departed [facility]erred [facility] Start: 03-23-2022 Registered [facility] Start: 03-16-2022 End: 03-16-2022 ambulatory [facility] Work Phone: Start: 03-16-2022 End: 03-16-2022 Departed [facility]erred [facility] Start: 03-16-2022 Registered [facility] Start: 03-09-2022 End: 03-09-2022 ambulatory [facility] Work Phone: Start: 03-09-2022 End: 03-09-2022 Departed [facility]erred [facility] Start: 03-09-2022 Registered [facility] Start: 03-06-2022 End: 03-06-2022 ambulatory [facility] Work Phone: Start: 03-06-2022 End: 03-06-2022 Departed [facility]erred [facility] Start: 03-06-2022 [facility] Start: 03-02-2022 End: 03-03-2022 Emergency department patient visit UNKNOWN PROVIDER [facility] Start: 03-02-2022 End: 03-02-2022 Emergency department patient visit Lanette Munguia Work Phone: [facility] Emergency [facility] Comment on above: Fall, initial encoun ter (Primary Dx); Anticoagulated Start: 02-20-2022 End: 02-20-2022 Departed Referred [facility] [employer] [facility] Start: 02-20-2022 Registered [facility] Start: 02-13-2022 End: 02-13-2022 ambulatory [facility] Work Phone: Start: 02-13-2022 End: 02-13-2022 Departed Referred [facility] Start: 02-13-2022 Registered [facility] Start: 02-06-2022 End: 02-06-2022 ambulatory [facility] Work Phone: Start: 02-06-2022 End: 02-06-2022 Departed Referred [facility] Start: 02-06-2022 Registered Referred [facility] Start: 01-30-2022 End: 01-30-2022 Departed Referred [facility] Start: 01-30-2022 Registered Referred [facility] Start: 01-26-2022 End: 01-26-2022 ambulatory [facility] Work Phone: Start: 01-26-2022 End: 01-26-2022 Departed Referred [facility] Start: 01-26-2022 Registered Referred [facility] Start: 01-19-2022 End: 01-19-2022 ambulatory [facility] Work Phone: Start: 01-19-2022 End: 01-19-2022 Departed Referred [facility] Start: 01-19-2022 Registered Referred [facility] Start: 01-17-2022 ambulatory [facility] Start: 01-10-2022 ambulatory [facility] Start: 01-10-2022 End: 01-10-2022 ambulatory [facility] Work Phone: Start: 01-10-2022 End: 01-10-2022 Departed Referred [facility] Start: 01-10-2022 Registered Referred [facility] Start: 01-06-2022 AUDIT Monika Elias rt Work Phone: [facility] Work Phone: Start: 01-05-2022 End: 01-05-2022 [facility] Start: 01-05-2022 [facility] Start: 12-30-2021 End: 12-30-2021 [facility] Start: 12-30-2021 [facility]istered [facility] Start: 12-28-2021 End: 12-28-2021 ambulatory [facility] Work Phone: Start: 12-28-2021 End: 12-28-2021 Departed [facility]erred [facility] Start: 12-28-2021 [facility] Start: 12-26-2021 End: 12-26-2021 ambulatory [facility] Work Phone: Start: 12-26-2021 End: 12-26-2021 Departed Referred [facility] Start: 12-26-2021 Registered Referred [facility] Start: 12-22-2021 End: 12-22-2021 ambulatory [facility] Work Phone: Start: 12-22-2021 End: 12-22-2021 [facility] Start: 12-22-2021 Registered [facility] Start: 12-22-2021 End: 12-22-2021 [facility] Start: 12-21-2021 End: 12-22-2021 Emergency department patient visit Sharon Olivia MD Work Phone: [facility] Emergency Dept Comment on above: Heel ulceration, lef t, with unspecified severity (HCC) (Primary Dx) Start: 12-19-2021 End: 12-19-2021 ambulatory [facility] Work Phone: Start: 12-19-2021 End: 12-19-2021 [facility] Start: 12-19-2021 [facility] Start: 12-12-2021 End: 12-12-2021 ambulatory [facility] Work Phone: Start: 12-12-2021 End: 12-12-2021 [facility]ed [facility] Start: 12-12-2021 [facility] Start: 12-08-2021 End: 12-08-2021 ambulatory [facility] Work Phone: Start: 12-08-2021 End: 12-08-2021 [facility]ed [facility] Start: 12-08-2021 Registered [facility] Start: 12-05-2021 End: 12-05-2021 ambulatory [facility] Work Phone: Start: 12-05-2021 End: 12-05-2021 [facility]ed [facility] Start: 12-05-2021 [facility] Start: 12-01-2021 End: 12-01-2021 [facility]ed [facility] Start: 12-01-2021 Registered [facility] Start: 11-28-2021 End: 11-28-[address] [facility] Start: 11-28-2021 [facility] Start: 11-25-2021 Rx Renewal Monika Elias rt Work Phone: [id number] Work Phone: Start: 11-23-2021 End: 11-23-2021 [facility]ed [facility] Start: 11-23-2021 Registered [facility] Start: 11-22-2021 End: 11-22-2021 Departed Referred [facility] Mav[facility] Start: 11-22-2021 Registered [facility] Start: 11-21-2021 End: 11-21-2021 Departed Referred [facility] Start: 11-15-2021 AUDIT Monika Elias rt Work Phone: [id number] Work Phone: Start: 11-14-2021 End: 11-14-2021 Departed Referred [facility] Start: 11-14-2021 Registered [facility] Start: 11-08-2021 End: 11-08-2021 Departed Referred [facility] Start: 11-08-2021 Registered [facility] Start: 11-04-2021 End: 11-04-2021 Departed Referred [facility] Start: 11-04-2021 Registered [facility] Start: 10-31-2021 End: 11-01-2021 Emergency department patient visit UNKNOWN PROVIDER [facility] Start: 10-31-2021 End: 11-01-2021 Emergency department patient visit Dante Kim MD Work Phone: [facility] Emergency Dept Comment on above: Other fatigue (Prima ry Dx) Start: 10-31-2021 End: 10-31-2021 Departed Referred [facility] Start: 10-21-2021 End: 10-29-2021 Evaluation and management of inpatient UNKNOWN PROVIDER [facility] Start: 10-21-2021 End: 10-29-2021 Evaluation and management of inpatient Lisa Miguel Angel JIMENEZ Work Phone: [facility] Comment on above: Leg swelling (Primar y Dx); Acute deep vein thrombosis (DVT) of proximal vein of lower extremity, unspecified laterality (HCC) Start: 10-20-2021 End: 10-20-2021 Departed Referred [facility] Start: 10-17-2021 Telephone encounter Nicole davis MD Work Phone: [facility] Comment on above: Missed Appointment Start: 09-19-2021 End: 09-19-2021 Departed Referred [facility] Start: 11-02-2020 AUDIT Monika Elias rt Work Phone: [facility] Work Phone: Start: 10-27-2020 AUDIT Monika Elias rt Work Phone: [facility] Work Phone: Start: 07-13-2020 Patient encounter procedure Monika Staley [facility] Physician [facility] Work Phone: Start: 04-13-2020 Patient encounter procedure Wing Ritter [facility] Work Phone: Start: 04-07-2020 Patient encounter procedure Wing Ritter [facility] Work Phone: Start: 03-18-2020 Patient encounter procedure Wing Ritter [facility] Work Phone: Start: 01-20-2020 [...] Sarika Salas Work Phone: [facility] Start: 06-11-2019 End: 06-11-2019 Subsequent [...] Start: 10-26-2021 Electroencephalogram w/rec awake&asleep Sarina Pineda 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 Work Phone: Start: 10-26-2021 Ct head/brain w/o co ntrast material Sarina Pineda [employer] 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 - [employer] Work Phone: Start: 10-26-2021 Prothrombin time Andres Sheridan MD Work Phone: Start: 10-25-2021 Speech and language therapy regime Sarina Pineda [employer] 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 - [employer] Work Phone: Start: 10-25-2021 Prothrombin time Andres [...] Start: 10-21-2021 Blood count reticulo cyte automated [place] B Niesha [employer] 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 - [employer] Work Phone: Start: 10-21-2021 C-reactive protein Loua nn B Niesha [employer] 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 - [employer] Work Phone: Start: 10-21-2021 Non-invas physiologi c std extremity art 2 level Shruthi Malik [employer] 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 - [employer] Work Phone: Start: 10-21-2021 Radex calcaneus mini mum 2 views Shruthi Malik [employer]ATION 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 - [employer] Work Phone: Start: 10-21-2021 Dup-scan xtr veins [...] Comment: Speci men Type: BLOOD SPECIMENOrdering Facility: [facility] Address: [address] [place] [address] Performed By: #### T SCR ####[facility]LO[facility]ANKCLIA [id number] [address] Start: 08-04-2021 Antibody screen Comment on above: Order Comment: Speci men Type: BLOOD SPECIMENOrdering Facility: [facility] Address: [address] [place] [address] Performed By: #### T SCR ####[facility]LO[facility]ANKCLIA [id number] [address] Start: 08-01-2021 Antibody screen Comment on above: Order Comment: Speci men Type: BLOOD SPECIMENOrdering Facility: [facility] Address: [address] [place] [address] Performed By: #### T SCR ####[facility] BLOOD BANKCLIA [id number] [address] Start: 06-07-2021 Antibody screen Comment on above: Order Comment: Speci men Type: BLOOD SPECIMEN Performed By: #### T SCR ####[facility] BLOOD BANKCLIA [id number] [address] Start: 09-02-2020 Lipid 1996 panel - S bradly or Plasma Rebecca Buck MD Work Phone: Start: 04-07-2020 Echocardiography Wing Ritter Start: 11-13-2019 Radiologic examinati on tibia & fibula 2 views Soheila Lewis Work Phone: Hernia repair Monika melvin History of Cholecystotomy An yvette Staley History of Creation Of Subdural-Peritoneal CSF Shunt Shiela Luís History 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 Placement Monika Eliasrt Urine culture Plan of Treatment Date Care Activity Detail Author Start: 09-22-2026 DTaP/Tdap/Td vaccine (2 - Td or Tdap) DTaP/Tdap/Td vaccine (2 - Td or Tdap) [facility] Start: 09-22-2026 DTaP/Tdap/Td vaccine (2 - Td) DTaP/Tdap/Td vaccine (2 - Td) [facility] Work Phone: Start: 09-22-2026 DTaP/Tdap/Td Vaccine s (2 - Td or Tdap) DTaP/Tdap/Td Vaccines (2 - Td or Tdap) [facility] Start: 09-02-2025 Lipid panel Lipid Panel [facility] Start: 08-22-2024 DIABETES SCREEN DIABETES SCREEN [facility] Start: 12-04-2023 Lipid panel Lipids [facility] Start: 12-04-2023 Lipid screen Lipid screen [facility] Work Phone: Start: 09-13-2023 End: 09-13-2023 Patient encounter procedure 09/13/2023 11:30 AM EDT Office Visit [facility] [address] [facility] [address] [place] [phone] Rebecca Buck MD [address] [facility] [address] [place] [address] [facility] Start: 08-31-2023 End: 08-31-2023 Patient encounter procedure 08/31/2023 9:30 AM EDT Appointment [facility] [address] [place] [phone] Rebecca Buck MD [address] [address] [facility] [address] [facility] Start: 08-13-2023 End: 08-12-2024 Basic metabolic 1998 panel - Serum or Plasma Basic metabolic panel Lab Routine Calculus of ureter Expected: 08/13/2023 (Approximate), Expires: 08/12/2024 [facility] Comment on above: Expected: 08/13/2023 (Approximate), Expires: 08/12/2024 Start: 08-13-2023 End: 08-12-2024 CT Abdomen WO contrast CT abdomen pelvis wo IV contrast Imaging Routine Left flank pain Calculus of ureter Expected: 08/13/2023, Expires: 08/12/2024 [facility] Comment on above: Expected: 08/13/2023 , Expires: 08/12/2024 Start: 08-13-2023 End: 02-12-2024 PSA, Monitoring ([facility]) PSA, Monitoring ([facility]) Lab Routine Disease of prostate Expected: 08/13/2023 (Approximate), Expires: 02/12/2024 [facility] [facility] Work Phone: Comment on above: Expected: 08/13/2023 (Approximate), Expires: 02/12/2024 Start: 08-13-2023 End: 08-13-2023 Patient encounter procedure 08/13/2023 10:00 AM EDT Office Visit [facility] [address] [place] [id number] Rebecca Buck MD [address] [place] [address] [facility] Start: 07-17-2023 Bacteria identified in Urine by Culture [facility] Start: 07-17-2023 [facility] Start: 07-16-2023 Measurement of substance [facility] Start: 05-07-2023 Medicare Advantage A nnual Wellness Visit Medicare Advantage Annual Wellness Visit [facility] Start: 03-02-2023 Creatinine measurement Creatinine Le carmela [facility] Start: 03-02-2023 Potassium measurement Potassium Leve l [facility] Start: 08-22-2022 Diabetes mellitus screening Diabetes Screening [facility] Start: 01-05-2022 Influenza vaccination [facility] Start: 12-23-2021 EPV, Provider: Wing Ritter, Status: Pen, Time: 9:30 AM EPV, Provider: Wing Ritter, Status: Pen, Time: 9:30 AM [facility] Work Phone: Start: 12-05-2021 Influenza vaccination Flu vaccine (# 1) [facility] Start: 12-05-2021 Blood chemistry [facility] Work Phone: Start: 12-05-2021 Complete blood count [facility] Work Phone: Start: 12-05-2021 [facility] Work Phone: Start: 12-01-2021 [facility] Work Phone: Start: 08-05-2021 COVID-19 VACCINE (4 - Booster for Moderna series) COVID-19 VACCINE (4 - Booster for Moderna series) [facility] Start: 08-05-2021 COVID-19 Vaccine (4 - Booster for Pfizer series) COVID-19 Vaccine (4 - Booster for Pfizer series) [facility] Start: 06-01-2021 COVID-19 Vaccine (4 - Booster for Pfizer series) COVID-19 Vaccine (4 - Booster for Pfizer series) [facility] Start: 05-07-2021 ADVANCE DIRECTIVE DISCUSSION ADVANCE DIRECTIVE DISCUSSION [facility] Start: 08-11-2020 Screening for malign ant neoplasm of colon [facility] Start: 07-30-2020 Screening for malign ant neoplasm of colon [facility] Start: 01-20-2020 Echocardiography Echocardiogram [facility] [address] [place] Work Phone: Start: 01-06-2020 Influenza vaccination INFLUENZA (#1) [facility] Start: 12-04-2019 Annual Wellness Visi t (AWV) Annual Wellness Visit (AWV) [facility] Start: 12-04-2019 Creatinine monitoring Creatinine mon itoring [facility] Work Phone: Start: 12-04-2019 Hepatitis C screen Hepatitis C scree n [facility] Work Phone: Comment on above: Postponed from 05/06 (Patient Refused) Start: 12-04-2019 Potassium monitoring Potassium monit oring [facility] Work Phone: Start: 12-04-2019 Prostate specific an tigen measurement Prostate Specific Antigen (PSA) Screening or Monitoring [facility] Start: 12-04-2019 Shingles Vaccine (1 of 2) Day gles Vaccine (1 of 2) [facility] Work Phone: Comment on above: Postponed from 05/06 (Patient Refused) Start: 06-07-2019 Colon Cancer Screen FIT/FOBT [facility] Work Phone: Start: 08-14-2017 LIPID SCREEN LIPID SCREEN [facility] Start: 2017 ADVANCE DIRECTIVE DISCUSSION ADVANCE DIRECTIVE DISCUSSION [facility] Start: 2017 PNEUMOCOCCAL: 65+ (1 - PCV) PNEUMOCOCCAL: 65+ (1 - PCV) [facility] Start: 2017 PNEUMOVAX AGE 65 AND OVER WITH 5YR LOOKBACK (#1) PNEUMOVAX AGE 65 AND OVER WITH 5YR LOOKBACK (#1) [facility] Start: 04-14-2016 DIABETES SCREEN DIABETES SCREEN [facility] Start: 2012 RSV Immunization age d 60 or older (1 - 1-dose 60+ series) RSV Immunization aged 60 or older (1 - 1-dose 60+ series) [facility] Start: 2007 PROSTATE CANCER SCRE ENING DISCUSSION PROSTATE CANCER SCREENING DISCUSSION [facility] Start: 2002 Shingles vaccine (1 of 2) Day gles vaccine (1 of 2) [facility] Start: 2002 SHINGRIX VACCINE (1 of 2) DAY GRIX VACCINE (1 of 2) [facility] Start: 2002 Tuberculosis screening COLOREC MONIQUE CANCER SCREENING,SEE MODIFIER [facility] Start: 2002 Zoster Vaccines (1 of 2) Zoste r Vaccines (1 of 2) [facility] Start: 1997 COLOGUARD (FIT-DNA) COLOGUARD (FIT-D NA) [facility] Start: 1997 Colonoscopy COLONOSCOPY [facility] Start: 1997 COLORECTAL CANCER SCREENING COLORECTAL CANCER SCREENING [facility] Start: [address] COLONOGRAPHY [facility] Start: 1997 FECAL OCCULT BLOOD FECAL OCCULT BLOO D [facility] Start: 1997 Screening for malign ant neoplasm of colon [facility] Start: 1997 SIGMOIDOSCOPY SIGMOIDOSCOPY [facility] Start: 1987 Diabetes screen Diabetes screen [facility] Start: 1971 Urine microalbumin profile DTAP,TDAP,TD (1 - Tdap) [facility] Start: 1970 ANNUAL PCP TEAM RETAIL LOAN ORIGINATOR KEESHA DISEASE VISIT ANNUAL PCP TEAM CHRONIC DISEASE VISIT [facility] Start: 1970 BP CONTROLLED (<130/80) BP CONTROLLE D (<130/80) [facility] Start: 1970 Diabetes mellitus screening Diabetes Screening [facility] Start: 1970 HEPATITIS C SCREENING HEPATITIS C SC PHIL [facility] Start: 1970 Hepatitis C screening [facility] Start: 1964 Adult depression screening assessment DEPRESSION SCREENING [facility] Start: 1964 Depression Screen Depression Screen [facility] Start: 1962 Diabetic foot examination Diabetes: Foot Exam [facility] Start: 1962 Glaucoma screening Diabetes: R etinopathy Screening [facility] Start: 1962 Preventive dental service Diabetes: Dental Exam [facility] Start: 1952 Echocardiography Echocardiogram [facility] Start: 1952 Hemoglobin A1c measurement Diabetes: Hemoglobin A1C [facility] Start: 1952 Lipid panel Lipid Panel [facility] Start: 1952 Screening for malign ant neoplasm of colon [facility] Bacteria identified in Urine by Culture Urine Culture [facility] Work Phone: End: 03-02-2022 CBC W Auto Differential panel - Blood CBC with Auto Differential Lab Routine One Time for 1 Occurrences starting 03/02/2022 until 03/02/2022 [facility] Work Phone: Comment on above: One Time for 1 Occur rences starting 03/02/2022 until 03/02/2022 End: 03-02-2022 Comprehensive metabolic 2000 panel - Serum or Plasma Comprehensive Metabolic Panel Lab STAT One Time for 1 Occurrences starting 03/02/2022 until 03/02/2022 [facility] Work Phone: Comment on above: One Time for 1 Occur rences starting 03/02/2022 until 03/02/2022 End: 09-06-2023 CT Abdomen WO contrast [facility] [employer] Work Phone: Comment on above: Once for 1 Occurrenc es starting 09/06/2023 until 09/06/2023 End: 12-22-2021 Culture, Blood 2 Culture, Blood 2 Microbiology STAT One Time for 1 Occurrences starting 12/22/2021 until 12/22/2021 [facility] Work Phone: Comment on above: One Time for 1 Occur rences starting 12/22/2021 until 12/22/2021 End: 12-22-2021 Microscopic examination of blood, culture Culture, Blood Microbiology STAT One Time for 1 Occurrences starting 12/22/2021 until 12/22/2021 [facility] Work Phone: Comment on above: One Time for 1 Occur rences starting 12/22/2021 until 12/22/2021 Microscopic examinat ion of blood, culture Culture, Blood Microbiology STAT 12/22/2021 12:[address] [facility] Work Phone: Oxygen therapy [[facility] Data Set] Initiate Oxygen Therapy Protocol Respiratory Care Routine As Needed until discontinued starting 10/21/2021 [facility] Comment on above: As Needed until disc ontinued starting 10/21/2021 Protime-INR Protime-INR Lab Routine Daily until discontinued starting 10/23/2021, [address] [facility] Work Phone: Comment on above: Daily until disconti nued starting 10/23/2021, 7 completed End: 03-02-2022 Protime-INR Protime-INR Lab Routine One Time for 1 Occurrences starting 03/02/2022 until 03/02/2022 [facility] Work Phone: Comment on above: One Time for 1 Occur rences starting 03/02/2022 until 03/02/2022 Spirometry panel Incentive stef metry Respiratory Care Routine Daily until discontinued starting 10/21/2021 [facility] Work Phone: Comment on above: Daily until disconti nued starting 10/21/2021 End: 10-21-2021 Wound ostomy eval Wound ostomy eval Wound Ostomy Routine One Time for 1 Occurrences starting 10/21/2021 until 10/21/2021 [facility] Work Phone: Comment on above: One Time for 1 Occur rences starting 10/21/2021 until 10/21/2021 [facility] NEGATED: Highlighted row has been ruled out! Planned Goals not documented [facility]-Utvkdulslw-Skg ma Work Phone: Immunizations Immunization Date Immunization Notes Care Provider Christopher muñozmichaela 03-04-2019 influenza, high dose seasonal, preservative-free Sarika [...] Phone: Payers Date Payer Category Payer Unknown [id number] 12-24-2023 Self-pay 01-05-2022 Medicaid 01-05-2022 Medicare 01-05-2022 Medicare [id number] 10-05-2021 Medicaid [id number] 06-07-2021 Medicare UHC MEDICARE UHC DUAL COMPLETE HMO SNP [id number] 06/07/2021-Present [phone] [address] [place] [address] Medicare [id number] 2.7.3.509094.315 06-07-2021 Medicare UHC MEDICARE UNITEDHE[employer] DUAL COMPLETE [id number] 06/07/2021-Present [phone] [address] [place] [address] [id number]. 2.7.3.738533.315 11-05-2019 Medicare UHC AAR MEDICAR E UHC AARP MEDICARE HMO [id number] 11/05/2019-Present HMO [id number]. 2.7.3.872901.315 07-06-2015 Medicare UHC MEDICARE UHC MEDICARE COMPLETE xxxxxxxxx 2015-Present xxxxxxxxx [id number]. 2.7.3.766156.315 1952 Unknown [id number] 2.16.840.1.551828.3.579. 2.668 1952 Unknown [id number] 2.16840.1.974957.3.579. 2.668 1952 Unknown [id number] 2.16.840.1.407770.3.579. 2.668 1952 Unknown [id number] 2.16.840.1.712936.3.579. 2.668 1952 Unknown [id number] 2.16.840.1.417411.3.579. 2.668 1952 Unknown [id number] 2.16.840.1.584364.3.579. 2.668 1952 Unknown [id number] 2.16.840.1.201809.3.579. 2.668 Private Health Insurance Unknown Unknown [id number] 2.16.840.1.599272.3.579. 2.462 Unknown [id number] 2.16.840.1.430807.3.579. 2.462 Unknown [id number] 2.16.840.1.894428.3.579. 2.462 Unknown [id number] 2.16.840.1.628319.3.579. 2.462 Unknown [id number] 2.16.840.1.625908.3.579. 2.462 Unknown [id number] 2.16.840.1.611873.3.579. 2.462 Unknown [id number] 2.16.840.1.277219.3.579. 2.462 Unknown [id number] 2.16.840.1.247711.3.579. 2.462 Unknown [id number] 2.16.840.1.847757.3.579. 2.462 Unknown [id number] 2.16.840.1.866080.3.579. 2.462 Unknown [id number] 2.16.840.1.779704.3.579. 2.462 Unknown [id number] 2.16840.1.229340.3.579. 2.462 Unknown [id number] 2.840.1.087406.3.579. 2.462 Unknown [id number] 2.16840.1.057615.3.579. 2.462 Unknown [id number] 2.840.1.257781.3.579. 2.462 Unknown [id number] 2.840.1.509881.3.579. 2.462 Unknown [id number] 2.16840.1.810022.3.579. 2.462 Unknown [id number] 2.16840.1.491461.3.579. 2.462 Unknown [id number] 2.16840.1.257034.3.579. 2.462 Unknown [id number] 2.16.840.1.895172.3.579. 2.462 Unknown [id number] 2.16.840.1.237751.3.579. 2.462 Unknown [id number] 2.16.840.1.869930.3.579. 2.462 Unknown [id number] 2.16.840.1.161825.3.579. 2.462 Unknown [id number] 2.16.840.1.217446.3.579. 2.462 Unknown [id number] 2.16.840.1.204306.3.579. 2.462 Unknown [id number] 2.16.840.1.593527.3.579. 2.462 Unknown [id number] 2.840.1.638777.3.579. 2.462 Unknown [id number] 2.840.1.369525.3.579. 2.462 Unknown [id number] 2.840.1.284004.3.579. 2.462 Unknown [id number] 2.840.1.821586.3.579. 2.462 Unknown [id number] 2.840.1.005170.3.579. 2.462 Unknown [id number] 2.840.1.178331.3.579. 2.462 Unknown [id number] 2.840.1.794812.3.579. 2.462 Unknown [id number] 2.840.1.110404.3.579. 2.462 Unknown [id number] 2.840.1.126689.3.579. 2.462 Unknown [id number] 2.840.1.883859.3.579. 2.462 Unknown [id number] 2.840.1.513662.3.579. 2.462 Unknown [id number] 2.840.1.211500.3.579. 2.462 Unknown [id number] 2.16.840.1.253611.3.579. 2.462 Unknown [id number] 2..840.1.831523.3.579. 2.462 Unknown [id number] 2.840.1.792215.3.579. 2.462 Unknown [id number] 2.16.840.1.650611.3.579. 2.462 Unknown [id number] 2.16.840.1.995675.3.579. 2.462 Unknown [id number] 2.16.840.1.450612.3.579. 2.462 Unknown [id number] 2.16.840.1.946620.3.579. 2.462 Unknown [id number] 2.16.840.1.642985.3.579. 2.462 Unknown [id number] 2.16.840.1.478347.3.579. 2.462 Unknown [id number] 2.16.840.1.012472.3.579. 2.462 Unknown [id number] 2.16.840.1.655401.3.579. 2.462 Unknown [id number] 2.16.840.1.424292.3.579. 2.462 Unknown [id number] 2.16.840.1.006286.3.579. 2.462 Unknown [id number] 2.16.840.1.912027.3.579. 2.462 Unknown [id number] 2.16.840.1.276139.3.579. 2.462 Unknown [id number] 2.16.840.1.476233.3.579. 2.462 Unknown [id number] 2.16.840.1.286293.3.579. 2.462 Unknown [id number] 2.16.840.1.028049.3.579. 2.462 Unknown [id number] 2.16.840.1.405214.3.579. 2.462 Unknown [id number] 2.16.840.1.181243.3.579. 2.462 Unknown [id number] 2.16.840.1.308621.3.579. 2.462 Unknown [id number] 2.16.840.1.742726.3.579. 2.462 Unknown [id number] 2.16840.1.294831.3.579. 2.462 Unknown [id number] 2.840.1.012796.3.579. 2.462 Unknown [id number] 2.840.1.850381.3.579. 2.462 Unknown [id number] 2.840.1.037340.3.579. 2.462 Unknown [id number] 2.840.1.892104.3.579. 2.462 Unknown 34222214 2.840.1.266660.3.579. 2.462 Unknown 84343981 2.840.1.937309.3.579. 2.462 Unknown [id number] 2.840.1.643454.3.579. 2.462 Unknown [id number] 2.840.1.743193.3.579. 2.462 Unknown [id number] 2.840.1.088952.3.579. 2.462 Unknown 94215377 2.840.1.603354.3.579. 2.462 Unknown 05715490 2.840.1.303035.3.579. 2.462 Unknown [id number] 2.840.1.000040.3.579. 2.462 Unknown 08598955 2.840.1.425911.3.579. 2.462 Unknown [id number] 2.840.1.250686.3.579. 2.462 Unknown [id number] 2.840.1.242940.3.579. 2.462 Unknown [id number] 2.840.1.431389.3.579. 2.462 Unknown 19804518 2.840.1.519244.3.579. 2.462 Unknown [id number] 2.16.840.1.627816.3.579. 2.462 Unknown [id number] 2.16.840.1.351585.3.579. 2.462 Unknown [id number] 2.16.840.1.920222.3.579. 2.462 Unknown [id number] 2.16.840.1.254488.3.579. 2.462 Unknown 39329340 2.16.840.1.235653.3.579. 2.462 Unknown [id number] 2.16840.1.404061.3.579. 2.462 Unknown [id number] 2.840.1.205369.3.579. 2.462 Unknown 39920943 2.840.1.262669.3.579. 2.462 Unknown [id number] 2.840.1.023527.3.579. 2.462 Unknown [id number] 2.840.1.298279.3.579. 2.462 Unknown [id number] 2.840.1.121142.3.579. 2.462 Unknown [id number] 2.840.1.431286.3.579. 2.462 Unknown [id number] 2.840.1.036732.3.579. 2.462 Unknown 82774044 2.840.1.917503.3.579. 2.462 Unknown 18937240 2.16840.1.466327.3.579. 2.462 Unknown 51310257 2.16840.1.868221.3.579. 2.462 Unknown 43189249 2.16.840.1.583350.3.579. 2.462 Unknown [id number] 2.16.840.1.914529.3.579. 2.462 Unknown [id number] 2.16840.1.540931.3.579. 2.462 Unknown [id number] 2.16.840.1.209125.3.579. 2.462 Unknown 83717385 2.16840.1.277522.3.579. 2.462 Unknown [id number] 2.16.840.1.842351.3.579. 2.462 Unknown 32189252 2.16840.1.896752.3.579. 2.462 Unknown [id number] 2.16840.1.037962.3.579. 2.462 Unknown [id number] 2.840.1.815285.3.579. 2.462 Unknown 15491200 2.840.1.381051.3.579. 2.462 Unknown [id number] 2.840.1.631536.3.579. 2.462 Unknown [id number] 2.840.1.908791.3.579. 2.462 Unknown [id number] 2.840.1.331902.3.579. 2.462 Unknown [id number] 2.840.1.466263.3.579. 2.462 Unknown 08228005 2.840.1.260130.3.579. 2.462 Unknown [id number] 2.840.1.307642.3.579. 2.462 Unknown [id number] 2.840.1.573539.3.579. 2.462 Unknown [id number] 2.840.1.647291.3.579. 2.462 Unknown [id number] 2.840.1.003999.3.579. 2.462 Unknown [id number] 2.840.1.839029.3.579. 2.462 Unknown [id number] 2.840.1.647903.3.579. 2.462 Social History Date Type Detail Facility Start: 05-23-2018 End: 05-19-2019 Tobacco smoking status NHIS Former smoker [employer] Work Phone: History of tobacco use Cigar Smoker [employer] Work Phone: Start: 05-19-2019 End: 08-13-2023 Cigarettes smoked current (pack per day) - Reported [employer] Work Phone: Start: 05-19-2019 End: 08-13-2023 Alcohol intake Current non-drinker of alcohol (finding) [employer] Work Phone: Start: 12-03-2018 History SDOH Physica l Activity DPW 7 [employer] Work Phone: Start: 12-03-2018 History SDOH Physica l Activity MPS 9 [employer] Work Phone: Start: 12-03-2018 End: 10-31-2021 History SDOH Stress 1 [employer] Work Phone: Start: 12-03-2018 History SDOH Financial 5 [employer] Work Phone: Start: 12-03-2018 History SDOH Transpo rt Med 2 [employer] Work Phone: Start: 1950 Sex Assigned At Not on file [facility] Work Phone: Start: 08-13-2012 End: 11-13-2019 Tobacco smoking status NHIS Never smoker [facility] Start: 05-23-2018 End: 11-13-2019 Tobacco use and exposure Never used [facility] Start: 11-13-2019 History SDOH Alcohol Std Drinks 98 [facility] Start: 10-11-2021 End: 02-15-2022 Exposure to SARS-CoV-2 (event) Not sure [facility] Start: 1950 Sex Assigned At Male W [facility] History of tobacco use Current smoker [facility] Work Phone: History of tobacco use Cigarette Smoker [facility] Work Phone: Start: 10-31-2021 End: 08-13-2023 Tobacco use panel [facility] Tobacco smoking stat us MIIS Unknown if ever smoked [facility] Work Phone: Start: 07-11-2024 End: 08-21-2024 Sex Male (finding) [facility] NEGATED: Highlighted row - - [facility] Work Phone: Medical Equipment Procedure Code Equipment Code Equipment Origin al Text Equipment Identifier Dates Kit Bactiseal Woodard maria guadalupe Silicone Barium Catheter Shunt Sterile - [id number] Start: 06-08-2021 Catheter Bactise al 14cm External Drainage Csf Sterile Latex Free - [id number] Start: 08-05-2021 Valve Certas Shannon nt Inline - [id number] Start: 06-08-2021 Valve Certas Shannon nt Inline - [id number] Start: 08-05-2021 Valve Certas Shannon nt Inline - [id number] Start: 08-09-2021 Goals Date Patient Goal [...] status health issues are not documented Disease [facility] Work Phone: Mental Status Date Assessment Result Facility NEGATED: Highlighted row Cognitive function [Interpretation] Cognitive status health issues are not documented Disease [facility] Work Phone: Clinical Notes [...] Hydrocephalus, adult (CMS/HCC) (HCC) Kidney stone Neuropathy [employer] (ventriculoperitoneal) shunt status Past Surgical History: Procedure [...] 09/13/23 12:05 PM documented in this encounter [facility] 08-31-2023 Note S: Shanthi from [facility] spoke with [facility] nurse regarding voiding trial procedure. B: [...] Protocols used: Information Only Call - No [id number]-SLUHZ-AJ [facility] 08-31-2023 Telephone encounter Note S: Shanthi from [facility] spoke with [facility] nurse regarding voiding trial procedure. B: Onset of symptoms/concern today. A: [facility] is calling to make sure that the patient doesn't need to stand for the procedure as the patient can't. Patient using a boaz lift and would need to come by cot if so. Shanthi advised that the patient would need to come back cot if unable to stand to move from chair to exam table for procedure. R: [facility] will attempt to arrange for transportation for September 03 but might need to reschedule appointment if unable to obtain transportation. Reason for Disposition [1] Caller requesting NON-URGENT health information AND [2] PCP's office is the best resource Protocols used: Information Only Call - No Cvvsqu-MUNLW-PR [facility] 08-31-2023 Miscellaneous Notes S: Shanthi from [facility] spoke with [facility] nurse regarding voiding trial procedure. B: Onset of symptoms/concern today. A: [facility] is calling to make sure that the patient doesn't need to stand for the procedure as the patient can't. Patient using a boaz lift and would need to come by cot if so. Shanthi advised that the patient would need to come back cot if unable to stand to move from chair to exam table for procedure. R: [facility] will attempt to arrange for transportation for September 03 but might need to reschedule appointment if unable to obtain transportation. Reason for Disposition [1] Caller requesting NON-URGENT health information AND [2] PCP's office is the best resource Protocols used: Information Only Call - No [id number] documented in this encounter [facility] 08-29-2023 Telephone encounter Note Lm on daughters vm to advise them to call the number for the manager product marketing to get clarification, and to call back with further questions [facility] 08-29-2023 Miscellaneous Notes Lm on daughters vm to advise them to call the number for the manager product marketing to get clarification, and to call back with further questions Yes, they will need to call the number given to them. Please advise Name of caller: Shanthi Contact phone number: [phone] Relationship to Patient: patient Provider: MD Quinn Practice: [facility] Chief Complaint/Reason for Call: [facility] called in to see if Pt would need to come by cot for his CT appt due to Pt being Boaz. CAC did reach out to office and was advised to reach out to Central Scheduling. TEA did reach out to and was advised to let [facility] know that she would need to reach out to call Maury Cedeño Survey Technician at [facility] [phone] to get clarifications. TEA did reach back out to [facility] and advised and provider Maury's #. Please advise Best time of day caller can be reached: Any Patient advised that office/PCP has 24-48 business hours to return their call: N/A documented in this encounter [facility] 08-27-2023 Telephone encounter Note Yes, they will need to call the number given to them. [facility] 08-27-2023 Telephone encounter Note Please advise [facility] 08-21-2023 Telephone encounter Note Name of caller: Shanthi Contact phone number: [phone] Relationship to Patient: patient Provider: MD Quinn Practice: [facility] Chief Complaint/Reason for Call: Shanthi called [...] to reach out to call Maury Cedeño Survey Technician at [facility] [phone] to get clarifications. CAC did reach back out to [facility] and advised and provider Maury's #. Please advise Best time of day caller can be reached: Any Patient advised that office/PCP has 24-48 business hours to return their call: N/A [facility] [employer] 08-13-2023 History of Present illness Narrative Images [...] Hydrocephalus, adult (CMS/HCC) (HCC) Kidney stone Neuropathy [employer]IC[employer] (ventriculoperitoneal) shunt status Past Surgical History: Past [...] 08/13/23 10:45 AM documented in this encounter [facility] 06-25-2023 Telephone encounter [facility] scheduled 07/10/23 [place] has to be made further out, pt being transported by cot. Changed appt to 08/13/23 per [facility] only avail time for transport, first avail with DR Buck at 10:00 AM. [facility] [place] 06-25-2023 Miscellaneous Notes [facility] scheduled 07/10/23 [place] has to be made further out, pt being transported by cot. Changed appt to 08/13/23 per [facility] only avail time for transport, first avail with DR Buck at 10:00 AM. documented in this encounter [facility] [place] 12-22-2021 Hospital Discharge instructions SANIA Lou - 12/22/2021 2:32 AM EDT Please take medication as prescribed Please follow up with your Physicians as instructed in this discharge paperwork Thank you for choosing [facility] I appreciate your patience Please return to the emergency department if your symptoms worsen, or new symptoms develop as discussed documented in this encounter [facility] Work Phone: 10-29-2021 Note Hospitalist Discharg [...] abnormality and previous indwelling tubing history of JUKE BOX SERVICER shunt ? #?Bilateral lower extremity wounds-wound care [...] neurologist. Patient will be transferred to the half-way and his Coumadin was continued, dosing instructions were given. Wound care was given for his lower extremity wounds. Consults: neurology, vascular surgery, gastroenterology Discharge Instructions: Diet: No diet orders on file Activity: as tolerated Disposition: Patient discharged in stable condition to half-way . Greater than 30 minutes spent discharging [...] Your Medications These medications were sent to [place] [id number] [facility] - [phone] - F [phone] [place] [id number] ? levETIRAcetam 750 MG tablet ? warfarin 6 MG tablet Recommended Follow-up: No follow-up provider specified. Complexity of Follow up: [] Moderate Complexity: follow up within 7-14 calendar days (49257) [x] Severe Complexity: follow up within 7 calendar days (13589) Follow up Testing, Pending results or Referrals [...] Increased fatigue or (more content not included)... [facility] 10-29-2021 Hospital Discharge instructions Fabi Subramanian RN [...] Information Primary Emergency Contact: Triny Damon Address: [address] [place] [address] [place], [place] [id number] [place] [address] Relation: Brother/Sister Secondary Emergency Contact: Melissa Sifuentes Mobile Relation: Child Preferred language: Anguillan Past Surgical History: Past Surgical History: Procedure Laterality Date BRAIN SURGERY CHOLECYSTECTOMY COLONOSCOPY HERNIA REPAIR Immunization History: Immunization History Administered Date(s) Administered Influenza Virus Vaccine 02/08/2015 Influenza, High Dose (Fluzone 65 yrs and older) 01/25/2018, 03/04/2019 Influenza, Quadv, IM, (6 mo and older Fluzone, Flulaval, Fluarix and 3 yrs and older Afluria) 02/24/2016, 02/14/2017 Pneumococcal Conjugate 13-valent (Wcrfaeh31) 09/22/2016 Pneumococcal Conjugate Vaccine 02/04/2013 Pneumococcal Polysaccharide ([id number]) 12/03/2018 Tdap (Boostrix, Adacel) 09/22/2016 Active Problems: Patient Active Problem List Diagnosis Code Flank pain, acute R10.9 Night muscle spasms M62.838 Chronic fatigue R53.82 Hydrocephalus (HCC) G91.9 Neuropathy G62.9 Erectile dysfunction N52.9 Fluid retention in tissues R60.9 Hyperlipidemia E78.5 Morbidly obese (HCC) E66.01 Leg wound, left S81.802A DVT, lower extremity, recurrent, unspecified laterality ([facility]) I82.409 Moderate malnutrition ([facility]) E44.0 History of seizures Z87.898 Isolation/Infection: Isolation [...] Dependent Dressing Dependent Toileting Dependent Feeding Dependent A And P Technician Dependent Med Delivery whole in pudding Wound [...] Q4H prn SOB Oxygen Therapy: {Therapy; copd oxygen:28111} Ventilator: { CC Vent List:[id number]} Rehab Therapies: {THERAPEUTIC INTERVENTION:[id number]} Weight Bearing Status/Restrictions: Weight Bearing - Patient was bedbound in hospital Other Medical Equipment (for information only, NOT a DME order): wheelchair, hospital bed, and Boaz Other Treatments: Patient's personal belongings (please select all that are sent with patient): {[facility] DME Belongings:[id number]} RN SIGNATURE: CASE MANAGEMENT/SOCIAL WORK SECTION Inpatient Status Date: Readmission Risk Assessment Score: Readmission Risk Risk of Unplanned Readmission: 11 Discharging to Facility/ Agency Name: Address: Phone: Fax: Dialysis Facility (if applicable) Name: Address: Dialysis Schedule: Phone: Fax: Psych Therapist/Law Firm Receptionist signature: {Esignature:[id number]} PHYSICIAN SECTION Prognosis: Fair Condition at Discharge: Stable Rehab Potential (if transferring to Rehab): Fair Recommended Labs or Other Treatments After Discharge: Coumadin based on INR target range 2-3, Coumadin 6 mg on 10/30 and 10/31, recheck INR 28 and notify physician, ideally should be on 6 mg alt with 7 mg daily, PT/OT, follow-up with neurologist in 1 month, continue [facility] Physician Certification: I certify the above information and transfer of Andrew Sifuentes is necessary for the continuing treatment of the diagnosis listed and that he requires [facility] for greater than 30 days. Update Admission H&P: No change in H&P PHYSICIAN SIGNATURE: documented in this encounter [facility] Work Phone: 10-29-2021 History of Present illness Narrative [facility] Anticoagulation Management Service ([facility]) Inpatient Warfarin Consult HPI: Andrew Sifuentes is a 71 y.o. 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 Past Medical History: Diagnosis Date ED (erectile dysfunction) Hemorrhoids Hydrocephalus, adult (HCC) Kidney stone Neuropathy JUKE BOX SERVICER (ventriculoperitoneal) shunt status Patient is newly referred to the [facility] clinic for warfarin management. Pt [...] drug interactions and adjust dose accordingly. 3. [facility] will manage while inpatient and sign off at discharge. Patient resides in a SNF. If discharged, recommend continuing close to 6-7mg warfarin daily. 4. Will provide warfarin education including [facility] warfarin booklet, if appropriate. Vimal Oropeza RPH, PharmD [facility] Consult Service is available daily [phone]. Please search for covering pharmacist name via [employer] or Groups --> Pharmacy --> Anti-Coagulation Consult Pharmacist (on 3rd page). If no response via Perfect[employer], please page [phone]. Patient seen and chart reviewed. Afebrile. Adequate [...] yr M with PMH obstructive hydrocephalus s/p JUKE BOX SERVICER shunt in 1987, needing multiple revisions and [...] normal limits and both old and new JUKE BOX SERVICER shunt tubing noted. At present patient is awake, follows commands, was able to tell his name, and that he was in hospital but not oriented to time. Per documentation patient had NCSE in May 2021, was on Vimpat, but it was discontinued as there was no evidence of recurrent seizures in july 2021 by Neurology at [facility], per daughter patient was on Dilantin for 31 yrs. Per daughter patient had seizures in the past and also felt he had staring episodes 10/26/2021 morning. Per daughter patient has been essentially bed bound in [place] since May 2021 but prior to that was independent Impressions: H/O hydrocephalus H/O seizure, H/O stroke Acute DVT H/O PE Plan: -MRI brain w/o contrast nothing acute -CT head done during this admission reported no hydrocephalus, ventricles within normal limits and both old and new JUKE BOX SERVICER shunt tubing noted -EEG mild to moderate slow, no seizures reported -Labs reviewed -Hydrocephalus management per Neurosurgery. At present patient does not have hydrocephalus on CT head done this admission. No Neurosurgery services available as inpatient in [facility]. Patient can follow up with Neurosurgery as outpatient and if ends up needing inpatient neurosurgery requirement then may need to be transferred to [facility]. -No clear clinical signs of ventriculitis. Defer evaluation to primary medical team/ID as deemed necessary. -Discussed with daughter in detail on . She was concerned that patient has had h/o seizures, and he has been taken off seizure medication, per note documentation patient had NCSE in May 2021 when he was admitted to [facility]. Per daughter she would want patient [...] is no in house Neurology coverage at [facility] over the weekend, primary hospitalist team to contact bone puller Neurology at [facility] for any weekend neurological issues related to the patient and if need to discuss any neurological test results/findings. Other deal in house Neurology coverage will be available from Sunday at [facility] and please call bone puller Neurology back on Sunday if need further assistance. This note has been generated using [employer] dictation software. It may contain incorrect words, punctuation's and spellings that were not noted in the review of the note prior to signing. This note has been generated using [employer] dictation software. It may contain incorrect words, [...] eGFR >90.0 >60 mL/min EGFR IF NonAfrican Burkinan >90.0 >60 mL/min Calcium 9.1 8.4 - [...] 26 AST 24 BILITOT 0.4 LABALBU 3.7 @BRIEFLAB([facility]) ABGs: )No results for input(s): PH, [...] Radiology ACCESSION EXAM DATE/TIME PROCEDURE ORDERING PROVIDER [id number] 10/21/2021 15:30 EDT CR Calcaneus 2+ Views [id number] -SHRUTHI MALIK CPT code 26350 Reason For Exam (CR Calcaneus 2+ Views [...] Tomography ACCESSION EXAM DATE/TIME PROCEDURE ORDERING PROVIDER [id number] 10/26/2021 11:[address] Head or Brain w/o JUNIE PINEDA ALLISON Contrast CPT code 64933 Reason For Exam (CT Head or Brain w/o Contrast) hydrocephalus. thank you Report CLINICAL INFORMATION: Hydrocephalus. Shunt. 3 mm axial cuts through the head are obtained without IV contrast. The examination is compared to a previous study dated 06/29/2014. FINDINGS: Old JUKE BOX SERVICER shunt tubing is noted bilaterally. The new [...] are clear. IMPRESSION: 1. Old and new JUKE BOX SERVICER shunt tubing. 2. No hydrocephalus. 3. Atrophy [...] Imaging ACCESSION EXAM DATE/TIME PROCEDURE ORDERING PROVIDER [id number] 10/23/2021 11:08 EDT MRI Abdomen w/o Contrast WING SRIVASTAVA CPT code 53245 Reason For Exam (MRI Abdomen w/o Contrast) [...] on --- Final --- Dictating Physician: MD CARMELO, CAMILA Signed Date and Time: 10/23/2021 4:35 pm Signed by: MD CARMELO CAMILA Transcribed Date and Time: 10/23/2021 4:36 NM LUNG VENT/PERFUSION (VQ) Result Date: 10/21/2021 Patient Name: ANDREW SIFUENTES Nuclear Medicine ACCESSION EXAM DATE/TIME PROCEDURE ORDERING PROVIDER [id number] 10/21/2021 07:55 EDT NM Pulmonary Perfusion [id number] MAY BOGGS w/ Vent Aerosol CPT code 37264 A9567 Reason For Exam (NM Pulmonary Perfusion [...] Brachial Indices Extremity Bilateral Result Date: 10/22/2021 [facility] --- Ankle Brachial Index Report Patient DO GurpreetB: 1950 Study 10/21/2021 Name: Andrew Gonzalez (71yrs) Date: Age: 71 Account: [id number] Gender: M Loc: 444W BP: Ordering Physician: Shruthi Malik Dairy Technician: Rody Cross RDMS, RVT Interpreting Physician: Carina Call --- Location: [facility] --- Indications: Foot wounds. Originally ordered as a full PVR. Ordering BREAST TRIMMER had to modify the order to ABIs [...] supine position. Images were obtained using a [employer] vascular ultrasound machine. --- Arterial pressure indices: [...] EXTREMITY BILATERAL VENOUS DUPLEX Result Date: 10/21/2021 [facility] --- Lower Extremity Venous Duplex Report Patient DO GurpreetB: 1950 Study 10/21/2021 Name: Andrew Gonzalez (71yr) Date: Age: 71 Account: [id number] Gender: M Loc: 444 BP: Ordering Physician: May Cash Dairy Technician: Rody Cross RDMS, RVT Interpreting Physician: Carina Call --- Location: [facility] --- Indications: Bilateral lower leg edema. [...] supine position. Images were obtained using a [employer] vascular ultrasound machine. --- Venous flow and [...] Radiology ACCESSION EXAM DATE/TIME PROCEDURE ORDERING PROVIDER [id number] 10/21/2021 08:16 EDT CR Chest 1 View Frontal [id number] MAY BOGGS CPT code 07427 Reason For Exam (CR Chest 1 View [...] Tomography ACCESSION EXAM DATE/TIME PROCEDURE ORDERING PROVIDER [id number] 10/22/2021 13:[address] Abdomen/Pelvis (No SRIVASTAVA, WING PO, No IV) CPT code 09631 Reason For Exam (CT Abdomen/Pelvis (No PO, [...] Result Date: 10/27/2021 [id number] Resonance Imaging ACCESSION EXAM DATE/TIME PROCEDURE ORDERING PROVIDER [id number] 10/27/2021 13:14 EDT MRI Brain w/o Contrast UNASSIGNED, UNASSIGNED CPT code 56191 Reason For Exam (MRI Brain w/o Contrast) stroke Patient has JUKE BOX SERVICER shunt in place, please follow Radiology protocol [...] on --- Final --- Dictating Physician: MD KHARIVENUS Signed Date and Time: 10/27/2021 2:38 pm Signed by: MD LOYD WASSIM OSAMA Transcribed Date and Time: 10/27/2021 2:39 All questions and concerns were addressed. Katherine Barreto MD Neurology, Vascular Neurology 10/28/2021 12:44 PM Consults Images from the original note were not included. Hospitalist Progress Note 10/28/2021 11:37 AM [phone]: Please page me @ [phone] for patient care issues. [phone]: Please page physical therapy aides teacher for any issues@ night Subjective: Admit Date: [...] abnormality and previous indwelling tubing history of JUKE BOX SERVICER shunt # Bilateral lower extremity wounds-wound care [...] Services This report was created using the [employer] voice-activated system. Despite prompt dictation and careful editorial review, there may be subtle contextual errors in this report, due to misrecognition of the spoken word. Speech Language Pathology Facility/Department: [facility] Dysphagia Treatment Note NAME: Andrew [...] and gloves were worn throughout this session. [facility] Anticoagulation Management Service ([facility]) Inpatient Warfarin Consult HPI: Andrew Sifuentes is a 71 y.o. 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 Past Medical History: Diagnosis Date ED (erectile dysfunction) Hemorrhoids Hydrocephalus, adult (HCC) Kidney stone Neuropathy JUKE BOX SERVICER (ventriculoperitoneal) shunt status Patient is newly referred to the [facility] clinic for warfarin management. Pt [...] appropriate. Brionna Le, PharmD candidate Josie Gupta [facility], PharmD [facility] Consult Service is available daily [phone]. Please search for covering pharmacist name via [employer] or Groups --> Pharmacy --> Anti-Coagulation Consult Pharmacist (on 3rd page). If no response via [employer], please page [phone]. Follow up b/l foot [...] yr M with PMH obstructive hydrocephalus s/p JUKE BOX SERVICER shunt in 1987, needing multiple revisions and [...] normal limits and both old and new JUKE BOX SERVICER shunt tubing noted. At present patient is awake, follows commands, was able to tell his name, and that he was in hospital but not oriented to time. Per documentation patient had NCSE in May 2021, was on Vimpat, but it was discontinued as there was no evidence of recurrent seizures in july 2021 by Neurology at [facility], per daughter patient was on Dilantin for 31 yrs. Per daughter patient had seizures in the past and also felt he had staring episodes 10/26/2021 morning. Per daughter patient has been essentially bed bound [place] since [place] 2021 but prior to that was independent Impressions: H/O hydrocephalus H/O seizure, H/O stroke Acute DVT H/O PE Plan: -MRI brain w/o contrast. Per daughter she would like MRI brain done to evaluate for strokes -CT head done during this admission today reported no hydrocephalus, ventricles within normal limits and both old and new JUKE BOX SERVICER shunt tubing noted -EEG mild to moderate slow, no seizures reported -Labs reviewed -Hydrocephalus management per Neurosurgery. At present patient does not have hydrocephalus on CT head done this admission. No Neurosurgery services available as inpatient in [facility]. Patient can follow up with Neurosurgery as outpatient and if ends up needing inpatient neurosurgery requirement then may need to be transferred to [facility]. -No clear clinical signs of ventriculitis. Defer evaluation to primary medical team/ID as deemed necessary. -Discussed with daughter in detail on . She was concerned that patient has had h/o seizures, and he has been taken off seizure medication, per note documentation patient had NCSE in May 2021 when he was admitted to [facility]. Per daughter she would want patient [...] interim. This note has been generated using [employer] software. It may contain incorrect words, punctuation's and spellings that were not noted in the review of the note prior to signing. This note has been generated using [employer] software. It may contain incorrect words, punctuation's [...] LABALBU, AMYLASE, LIPASE in the last 72 hours.@BRIEFLAB([facility]) ABGs: )No results for input(s): PH, [...] Radiology ACCESSION EXAM DATE/TIME PROCEDURE ORDERING PROVIDER [id number] 10/21/2021 15:30 EDT CR Calcaneus 2+ Views [id number] -SHRUTHI MALIK Left CPT code 43473 Reason For Exam (CR Calcaneus 2+ Views [...] Tomography ACCESSION EXAM DATE/TIME PROCEDURE ORDERING PROVIDER [id number] 10/26/2021 11:[address] Head or Brain w/o JUNIE PINEDA, SARINA Contrast CPT code 42638 Reason For Exam (CT Head or Brain w/o Contrast) hydrocephalus. thank you Report CLINICAL INFORMATION: Hydrocephalus. Shunt. 3 mm axial cuts through the head are obtained without IV contrast. The examination is compared to a previous study dated 06/29/2014. FINDINGS: Old JUKE BOX SERVICER shunt tubing is noted bilaterally. The new [...] are clear. IMPRESSION: 1. Old and new JUKE BOX SERVICER shunt tubing. 2. No hydrocephalus. 3. Atrophy [...] Imaging ACCESSION EXAM DATE/TIME PROCEDURE ORDERING PROVIDER [id number] 10/23/2021 11:08 EDT MRI Abdomen w/o Contrast WING SRIVASTAVA CPT code 28612 Reason For Exam (MRI Abdomen w/o Contrast) [...] Medicine ACCESSION EXAM DATE/TIME PROCEDURE ORDERING PROVIDER [id number] 10/21/2021 07:55 EDT NM Pulmonary Perfusion [id number] MAY BOGGS w/ Vent Aerosol CPT code 32760 A9567 Reason For Exam (NM Pulmonary Perfusion [...] Time: 10/21/2021 8:48 am Signed by: MD CANDICE, HENRY Transcribed Date and Time: 10/21/2021 8:49 VL Ankle Art Brachial Indices Extremity Bilateral Result Date: 10/22/2021 [facility] --- Ankle Brachial Index Report Patient DO GurpreetB: 1950 Study 10/21/2021 Name: Andrew Gonzalez (71yrs) Date: Age: 71 Account: [id number] Gender: M Loc: 444W BP: Ordering Physician: Shruthi Malik Dairy Technician: Rody Cross RDMS, RVT Interpreting Physician: Carina Call --- Location: [facility] --- Indications: Foot wounds. Originally ordered as a full PVR. Ordering BREAST TRIMMER had to modify the order to ABIs [...] supine position. Images were obtained using a [employer] vascular ultrasound machine. --- Arterial pressure indices: [...] EXTREMITY BILATERAL VENOUS DUPLEX Result Date: 10/21/2021 [facility] --- Lower Extremity Venous Duplex Report Patient RADHA Sifuentes: 1950 Study 10/21/2021 Name: Andrew Gonzalez (71yrs) Date: Age: 71 Account: [id number] Gender: M Loc: 4 BP: Ordering Physician: May Cash Dairy Technician: Rody Cross RDMS, RVT Interpreting Physician: Carina Call --- Location: [facility] --- Indications: Bilateral lower leg edema. [...] supine position. Images were obtained using a [employer] vascular ultrasound machine. --- Venous flow and [...] Radiology ACCESSION EXAM DATE/TIME PROCEDURE ORDERING PROVIDER [id number] 10/21/2021 08:16 EDT CR Chest 1 View Frontal [id number] -MAY CASH CPT code 68119 Reason For Exam (CR Chest 1 View [...] Tomography ACCESSION EXAM DATE/TIME PROCEDURE ORDERING PROVIDER [id number] 10/22/2021 13:[address] Abdomen/Pelvis (No SRIVASTAVA, WING PO, No IV) CPT code 63387 Reason For Exam (CT Abdomen/Pelvis (No PO, [...] 12:48 PM Consults Speech Language Pathology Facility/Department: [facility] Dysphagia Treatment Note NAME: Andrew [...] reactivity and state change, indicative of a wvke-pd-xtyojajg diffuse encephalopathy of nonspecific etiology. There are [...] Easy to chew diet/cut up. NEVILLE Jones M.A.CCC/DIGITAL ACCOUNT DIRECTOR Time session ended: 1156 Total session minutes: 23 Images from the original note were not included. Hospitalist Progress Note 10/27/2021 10:40 AM [phone]: Please page me @ [phone] for patient care issues. [phone]: Please page physical therapy aides teacher for any issues@ night Subjective: Admit Date: [...] Services This report was created using the [employer] voice-activated system. Despite prompt dictation and careful editorial review, there may be subtle contextual errors in this report, due to misrecognition of the spoken word. [facility] Anticoagulation Management Service ([facility]) Inpatient Warfarin Consult HPI: Andrew Sifuentes is a 71 y.o. 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 Past Medical History: Diagnosis Date ED (erectile dysfunction) Hemorrhoids Hydrocephalus, adult (HCC) Kidney stone Neuropathy JUKE BOX SERVICER (ventriculoperitoneal) shunt status Patient is newly referred to the [facility] clinic for warfarin management. Pt [...] PharmD [facility] Consult Service is available daily [phone]. Please search for covering pharmacist name via [employer] or Groups --> Pharmacy --> Anti-Coagulation Consult Pharmacist (on 3rd page). If no response via [employer], please page [phone]. I cleaned under patient's finger nails with [...] if concern Hydrocephalus Chronic WOODARD's - Revised JUKE BOX SERVICER shunt - daughter requested that pt have CT / MRI of brain and neurology be consulted, this was done. - "Hydrocephalus management per Neurosurgery. At present patient does not have hydrocephalus on CT head done this morning. No Neurosurgery services available as inpatient in [facility]. Patient can follow up with Neurosurgery as outpatient and if ends up needing inpatient neurosurgery requirement then may need to be transferred to [facility]. " Seizure history, unspecified - daughter [...] get report from nursing. Continue wound care. [facility] Anticoagulation Management Service ([facility]) Inpatient Warfarin Consult HPI: Andrew Sifuentes is a 71 y.o. 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 Past Medical History: Diagnosis Date ED (erectile dysfunction) Hemorrhoids Hydrocephalus, adult (HCC) Kidney stone Neuropathy JUKE BOX SERVICER (ventriculoperitoneal) shunt status Patient is newly referred to the [facility] clinic for warfarin management. Pt [...] drug interactions and adjust dose accordingly. 3. [facility] will manage while inpatient and sign off at discharge. Patient resides in a SNF. 4. Will provide warfarin education including [facility] warfarin booklet, if appropriate. Thank you for this consult Brionna Le, PharmD candidate Josie Gupta RPh, PharmD [facility] Consult Service is available daily [phone]. Please search for covering pharmacist name via [employer] or Groups --> Pharmacy --> Anti-Coagulation Consult Pharmacist (on 3rd page). If no response via PerfectServe, please page [phone]. Moon daughter stated that any of patient's family can call and obtain an update on patient's status. Speech Language Pathology Facility/Department: [facility] MED SURG CLINICAL BEDSIDE SWALLOW EVALUATION NAME: [...] a small bore straw. Additionally discussed with DIGITAL ACCOUNT DIRECTOR, agreeable to assess tomorrow. Recent Chest Xray/CT [...] and liquids between bites. Treatment Plan Requires DIGITAL ACCOUNT DIRECTOR Intervention: Yes Duration of Treatment: 2 weeks [...] Education Response: Verbalizes understanding;Needs reinforcement Therapy Time DIGITAL ACCOUNT DIRECTOR Individual Minutes Time In: 826 Time Out: 852 Minutes: 26 NEVILLE Jones 10/26/2021 9:20 AM Comprehensive Nutrition Assessment Type and Reason for Visit: Initial (DT referral for wounds) Nutrition Recommendations/Plan: 1. Recommend to continue: Easy to Chew diet with Thin Liquids as currently ordered and safe for patient to participate in. Discussed with: RN, BREAST TRIMMER, and DIGITAL ACCOUNT DIRECTOR. DIGITAL ACCOUNT DIRECTOR to assess tomorrow, best diet and liquid [...] & deltoids),Scapula (trapezius) Fluid Accumulation: Mild Extremities Rail Filler Strength: Not Performed Nutrition Assessment: 71 year [...] a small bore straw. Additionally discussed with DIGITAL ACCOUNT DIRECTOR, agreeable to assess tomorrow. Nutrition Related Findings: [...] Anthropometric Measures: Height: 5' 7.01" (170.2 cm) [place] Body Weight (IBW): 148 lbs (67 kg) Admission Body Weight: 240 lb (108.9 kg) (stated 10/21/21) Current Body Weight: 205 lb 4 oz (93.1 kg) (10/25/21), 138.7 % IBW. Weight Source: Bed Scale Current BMI (kg/m2): 32.1 Usual Body Weight: 272 lb 11.3 oz (123.7 kg) (05/30/21 and 232.5# noted 08/14/21 at [facility] per EMR Review) % Weight Change (Calculated): -24.7 BMI Categories: Obese Class 1 (BMI 30.0-34.9) Estimated Daily Nutrient Needs: Energy Requirements Based On: Kcal/kg Weight Used for Energy Requirements: [place] (67.15 kg) Energy (kcal/day): 7272-9491 (27-32 kcal/kg IBW) --> increased need d/t wounds Weight Used for Protein Requirements: [place] (67.15 kg) Protein (g/day): 67-101 (1.0-1.5 g protein/kg IBW) Method Used for Fluid Requirements: Other (Comment) Fluid (ml/day): 1240-9783 mL daily or per MD Nutrition Diagnosis: [...] Plan of Care discussed with: Patient, RN, BREAST TRIMMER Edwin Goals: Goals: other (specify) Specify Other [...] to determine Puja Almanza RD, LD Contact: *[phone] Or Via [employer] Hematology/Oncology Attending Progress Note SUBJECTIVE: Patient seen [...] IRON, TIBC, FERRITIN No results found for: [id number] No results found for: FOLATE PT 15.6 INR 1.5 CA 19 - 9 is 17 Protein S 138% Protein C 186% ASSESSMENT AND PLAN GI input appreciated. Patient continues with subtherapeutic INR. GI input appreciated. Discussed with patient's staff engineer. Will continue monitor. Total visit time > [address] [facility] Anticoagulation Management Service ([facility]) Inpatient Warfarin Consult HPI: Andrew Sifuentes is a 71 y.o. 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 Past Medical History: Diagnosis Date ED (erectile dysfunction) Hemorrhoids Hydrocephalus, adult (HCC) Kidney stone Neuropathy JUKE BOX SERVICER (ventriculoperitoneal) shunt status Patient is newly referred to the [facility] clinic for warfarin management. Pt [...] Dose 10/25 1.5 7.5mg 10/24 1.2 7.5mg 6/19 1.1 7.5 mg 10/22 1.1 5 [...] PharmD IRVIN Consult Service is available daily [phone]. Please search for covering pharmacist name via [employer] or Groups --> Pharmacy --> Anti-Coagulation Consult Pharmacist (on 3rd page). If no response via [employer], please page [phone]. Progress Note 10/25/2021 9:36 AM Name: Andrew [...] if concern Hydrocephalus Chronic WOODARD's - Revised JUKE BOX SERVICER shunt DC planning - 10/25/21: INR subtherapeutic, [...] if concern Hydrocephalus Chronic WOODARD's - Revised JUKE BOX SERVICER shunt DC planning - Can be DC'd back to ECF once MRI done if no acute findings, MRI is done, defer to hem / onc on plan for that, awaiting chest PA with fluoro Patient seen and chart reviewed. Consult dictated. Will ask GI to assess concerning the etiology of liver lesions. Will continue to monitor. [facility] Anticoagulation Management Service ([facility]) Inpatient Warfarin Consult HPI: Andrew Sifuentes is a 71 y.o. 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 Past Medical History: Diagnosis Date ED (erectile dysfunction) Hemorrhoids Hydrocephalus, adult (HCC) Kidney stone Neuropathy JUKE BOX SERVICER (ventriculoperitoneal) shunt status Patient is newly referred to the [facility] clinic for warfarin management. Pt [...] [facility], PharmD IRVIN Consult Service is available daily [phone]. Please search for covering pharmacist name via [employer] or Groups --> Pharmacy --> Anti-Coagulation Consult Pharmacist (on 3rd page). If no response via [employer], please page [phone]. Follow up foot wounds Patient is more alert this morning. Waffle boots are on Ulcer left heel ulcer right foot Foot drop PE, chart reviewed. Patient relates that he does not walk at home. c ontinue wound care. Images from the original note were not included. Hospitalist Progress Note 10/23/2021 1:47 PM [phone]: Please page me ([phone]) or perfect serve me for patient care issues. [phone]: Please page IMS night Hospitalist for any issues. Subjective: Admit Date: 10/21/2021 PCP: MONIKA STALEY MD Room#: [phone]/[id number] Admitting Synopsis: 71 y/o male presents from [...] if concern Hydrocephalus Chronic WOODARD's - Revised JUKE BOX SERVICER shunt DC planning - Can be DC'd [...] Hemorrhoids Hydrocephalus, adult (HCC) Kidney stone Neuropathy JUKE BOX SERVICER (ventriculoperitoneal) shunt status Medications: sodium chloride warfarin [...] of Hospitalist Medicine Inpatient Medical Services PAGER: [phone] Nutrition rescreen completed. Pt referred to RD for foot ulcers. Occupational Therapy Facility/Department: [facility] Occupational Therapy Initial Assessment Name: Andrew Sifuentes : 1950 Date of Service: 10/23/2021 OT eval and treat orders received. Chart reviewed. Per notes pt [facility], is Boaz lift at baseline, non-ambulatory, and requires assist for all ADLs. Will d/c OT orders. Elizabeth Gutierrez OT Physical Therapy Facility/Department: [address] Physical Therapy Initial Assessment Name: Andrew Sifuentes : 1950 Date of Service: 10/23/2021 PT eval and treat orders received. Chart reviewed. Per notes pt from [facility], is Boaz lift at baseline, non-ambulatory. Will d/c PT orders. Lloyd Silva PT [facility] Anticoagulation Management Service ([facility]) Inpatient Warfarin Consult HPI: Andrew Sifuentes is a 71 y.o. 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 Past Medical History: Diagnosis Date ED (erectile dysfunction) Hemorrhoids Hydrocephalus, adult (HCC) Kidney stone Neuropathy JUKE BOX SERVICER (ventriculoperitoneal) shunt status Patient is newly referred to the [facility] clinic for warfarin management. Pt [...] drug interactions and adjust dose accordingly. 3. [facility] will manage while inpatient and sign off at discharge. Patient resides in a SNF. 4. Will provide warfarin education including [facility] warfarin booklet, if appropriate. Thank you for this consult Lisa Forrest RPH, PharmD [facility] Consult Service is available daily [phone]. Please search for covering pharmacist name via [employer] or Groups --> Pharmacy --> Anti-Coagulation Consult Pharmacist (on 3rd page). If no response via [employer], please page [phone]. Department of Podiatry Attending Consult Note Reason for Consult: Wound care Requesting Physician: MD Oksana CHIEF COMPLAINT: Foot wounds HISTORY OF PRESENT ILLNESS: The patient is a 71 y.o. male with b/l foot wounds. Patient is awake , but not answering questions. Past Medical History: Diagnosis Date ED (erectile dysfunction) Hemorrhoids Hydrocephalus, adult (HCC) Kidney stone Neuropathy JUKE BOX SERVICER (ventriculoperitoneal) shunt status Past Surgical History: Procedure [...] OT consulted. Will follow . Thank you. [facility] Respiratory Care Department Progress Note As part [...] included. Hospitalist Progress Note 10/22/2021 6:33 AM [phone]: Please page me ([phone]) or perfect serve me for patient care issues. [phone]: Please page IMS night Hospitalist for any issues. Subjective: Admit Date: 10/21/2021 PCP: MONIKA STALEY MD Room#: 146/[id number] Admitting Synopsis: 71 y/o male presents from [...] consider MRI if concern Hydrocephalus - Revised JUKE BOX SERVICER shunt Interval History: No overnight issues. Denies [...] no cyanosis or edema and unable to stock mover BLE, this is old Musculoskeletal: Muscle loss [...] Hemorrhoids Hydrocephalus, adult (HCC) Kidney stone Neuropathy JUKE BOX SERVICER (ventriculoperitoneal) shunt status Medications: sodium chloride baclofen [...] of Hospitalist Medicine Inpatient Medical Services PAGER: [phone] Images from the original note were not included. Hospitalist Progress Note 10/21/2021 5:31 PM [phone]: Please page me ([phone]) or perfect serve me for patient care issues. [phone]: Please page IMS night Hospitalist for any issues. Subjective: Admit Date: 10/21/2021 PCP: MONIKA STALEY MD Room#: 774/146 Admitting Synopsis: 71 y/o male presents from [...] Will need chronic OAC Hydrocephalus - Revised JUKE BOX SERVICER shunt Interval History: No overnight issues. Denies [...] Hemorrhoids Hydrocephalus, adult (HCC) Kidney stone Neuropathy JUKE BOX SERVICER (ventriculoperitoneal) shunt status Medications: sodium chloride baclofen [...] of Hospitalist Medicine Inpatient Medical Services PAGER: [phone] Family member Triny, sister to patient, called back to the hospital stating that she was returning a call from a provider. Her phone number is [phone] to speak with whomever was attempting to reach out to her. documented in this encounter [facility] Phone: 10-17-2021 Miscellaneous Notes Mr. Sifuentes missed his hospital stay follow-up appointment w. Dr. Lim today. Called to Reschedule. Could not get through. "Subscriber you have dialed not in service" - was the automated voice mail. Unable to leave . No other phone# available. Ramya Negro Hardware Engineer [facility] documented in this encounter [facility] 08-19-2021 Note [facility] 08-19-2021 Note [facility] 08-18-2021 Note [facility] 08-18-2021 Note [facility] 08-17-2021 Note [facility] 08-17-2021 Note [facility] 08-16-2021 Note [facility] 08-16-2021 Note HNO ID: [id number] Author: Katt Kelsey DO Service: Hospital Medicine Author Type: Physician Type: Plan of Care Filed: 08/16/2021 12:26 PM Note Text: Spoke with RN that line is a PICC. Katt Kelsey DO 08/16/2021 12:26 PM [facility] 08-16-2021 Note [facility] 08-16-2021 Note [facility] 08-15-2021 Note [facility] 08-15-2021 Note [facility] 08-15-2021 Note [facility] 08-14-2021 Note [facility] 08-14-2021 Note [facility] 08-13-2021 Note [facility] 08-13-2021 Note [facility] 08-13-2021 Note [facility] 08-13-2021 Note HNO ID: [id number] Author: Ambar Note Service: ? Author Type: ? Type: Progress Notes Filed: 08/13/2021 3:10 AM Note Text: Epic Scheduled Downtime: 08/13/2021 1:08:47 AM to 08/13/2021 2:53:47 AM [facility] 08-12-2021 Note [facility] 08-12-2021 Note [facility] 08-12-2021 Note [facility] 08-11-2021 Note [facility] 08-11-2021 Note [facility] 08-11-2021 Note [facility] 08[facility]11-2021 Note [facility] 08-11-2021 Note [facility] 08-11-2021 Note [facility] 08-10-2021 Note [facility] 08-10-2021 Note [facility] 08-10-2021 Note [facility] 08-10-2021 Note [facility] 08-09-2021 Note HNO ID: [id number] Author: Shannon Brooks RN Service: ? Author Type: Registered Nurse Type: Nursing Progress Note Filed: 08/09/2021 7:33 PM Note Text: [facility]21 Note [facility] 08-09-2021 Note [facility] 08[facility]09-2021 Note [facility] 08-08-2021 Note [facility] 08-08-2021 Note [facility] 08-08-2021 Note [facility] 08-07-2021 Note [facility] 08-07-2021 Note [facility] 08[facility]07-2021 Note [facility] 08[facility]07-2021 Note [facility] 08-07-2021 Note [facility] 08-06-2021 Note [facility] 08-06-2021 Note [facility] 08-06-2021 Note [facility] 08-05-2021 Note [facility] 08-05-2021 Note [facility] 08-05-2021 Note [facility] 08-04-2021 Note [facility] 08-04-2021 Note [facility] 08-04-2021 Note [facility] 08-03-2021 Note [facility] 08-03-2021 Note [facility] 08-03-2021 Note [facility] 08-02-2021 Note [facility] 08-02-2021 Note [facility] 08-02-2021 Note [facility] 08-01-2021 Note [facility] 08-01-2021 Note [facility] 08-01-2021 Note [facility] 08-01-2021 Note [facility] 07-31-2021 Note [facility] 07-31-2021 Note [facility] 07-30-2021 Note [facility] 07-30-2021 Note [facility] 07-30-2021 Note [facility] 07-29-2021 Note [facility] 07[facility]29-2021 Note [facility] 07-29-2021 Note [facility] 07-28-2021 Note [facility] 07-28-2021 Note [facility] 07-28-2021 Note [facility] 07-27-2021 Note [facility] 07-27-2021 Note [facility] 07-27-2021 Note [facility] 07-26-2021 Note [facility] 07-26-2021 Note [facility] 07[facility]26-2021 Note [facility] 07[facility]26-2021 Note [facility] 07-26-2021 Note [facility] 07-25-2021 Note [facility] 07-25-2021 Note [facility] 07-25-2021 Note [facility] 07[facility]25-2021 Note [facility] 07-24-2021 Note [facility] 07-24-2021 Note [facility] 07-24-2021 Note [facility] 07-23-2021 Note [facility] 07-23-2021 Note [facility] 07-23-2021 Note [facility] 07[facility]23-2021 Note [facility] 07-23-2021 Note [facility] 07-22-2021 Note [facility] 07-22-2021 Note [facility] 07-22-2021 Note [facility] 07-21-2021 Note [facility] 07-21-2021 Note [facility] 07-21-2021 Note [facility] 07-21-2021 History of [...] history of fever, elevated WBC, RP hematoma JUKE BOX SERVICER shunt tip grew anaerobic gram positive cocci 06/08/2021 PLAN: JUKE BOX SERVICER shunt tip sent to [facility] main, awaiting cx Continue Meropenem per [...] Hydrocephalus - repeat CTH 2/ stable - 22 VA shunt removal and VPS shunt placed- EVD removed 06/10 PLAN: - following CSF studies; 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 for PILOT MANAGER infection at this time - ID following- Continue antibiotics: Meropenem -CSF leak from EVD site, appreciate NSGY recs> stat repeat CTH on 06/07 d/t concern for CSF leak, cephalematoma, CTH unremarkable -Tolerating TF - SBT WTE - PICC line placed documented as of this encounter (statuses as of 10/17/2021) [facility]03-17-2022 [facility]03-16-2022 [facility]03-16-2022 [facility]03-16-2022 Note [facility]03-16-2022 [facility] 07-19-2021 [facility]03-15-2022 [facility]03-15-2022 [facility]03-14-2022 [facility]03-14-2022 [facility]03-13-2022 [facility]03-13-2022 [facility]03-12-2022 Note [facility]03-12-2022 [facility] 07-15-2021 [facility]03-11-2022 [facility]03-10-2022 [facility]03-10-2022 [facility]03-10-2022 [facility]03-09-2022 [facility]03-09-2022 [facility]03-09-2022 Note [facility]03-09-2022 [facility] 07-12-2021 [facility]03-08-2022 [facility]03-07-2022 [facility]03-07-2022 [facility]03-07-2022 [facility]03-07-2022 [facility]03-06-2022 [facility]03-06-2022 Note [facility]03-05-2022 [facility] 07-09-2021 [facility]03-05-2022 [facility]03-05-2022 [facility]03-05-2022 NoteHNO ID: [id number] Author: Lizette Valderrama RN Service: Nursing Author Type: Registered Nurse Type: Nursing Progress Note Filed: 07/09/2021 1:41 AM Note Text: [facility] NoteHNO ID: [id number] Author: Lizette Valderrama RN Service: Nursing Author Type: Registered Nurse Type: Nursing Progress Note Filed: 07/08/2021 8:57 PM Note Text: [address] back to PACU [address] [place], [place] [id number] NoteHNO ID: [id number] Author: Sukhi Chery APRN.CNP Service: ? Author Type: Nurse Practitioner Type: Progress Notes Filed: 07/09/2021 6:46 PM Note Text: Connected Care Unit Progress Note Patient Name: Andrew Sifuentes Patient Facility: [facility] Admit Date 06/28/2021 Level of Care: Skilled [...] unspecified type, unspecified whether septic shock present ([facility]) - Dr. Mckenzie with ID Following - Continue on Vancomycin - PICC Line Intact - No fevers or chills per patient or staff (R53.81) Debility - Certify therapies - Maintain high falls risk precautions - pt/staff verbalize understanding validated via teach back - Monitor safety awareness Appointments for Next 60 Days Date Time Provider Location Dept Phone 07/21/2021 11:00 AM NICOLE LIM [phone] HPI: (Per Dr. Beltran) Andrew Sifuentes is being seen today for senior living facility (SNF) admission AND management of weakness, tube feed, infected retroperitoneal infection and seizure. ? This is a 71 year old male who presents from [facility] with primary admitting diagnosis of [...] CT brain concerning for hydrocephalus. Tip of JUKE BOX SERVICER shunt was found to be in the [...] slow to respond. Ordered to transfer to [facility] ED for evaluation of neurological and [...] changes in co (more content not included)... [facility]03-04-2022 [facility]03-04-2022 [facility]03-02-2022 NoteHNO ID: [id number] Author: Sukhi Chery APRN.VICTORIANO Service: ? Author Type: Nurse Practitioner Type: Progress Notes Filed: 07/09/2021 6:20 PM Note Text: Connected Care Unit Progress Note Patient Name: Andrew Sifuentes Patient Facility: [place] Admit Date 06/28/2021 Level of Care: Skilled [...] Dept Phone 07/21/2021 11:00 AM NICOLE LIM [phone] HPI: (Per Dr. Beltran) Andrew Sifuentes is being seen today for senior living facility (SNF) admission AND management of weakness, tube feed, infected retroperitoneal infection and seizure. ? This is a 71 year old male who presents from [facility] with primary admitting diagnosis of [...] CT brain concerning for hydrocephalus. Tip of JUKE BOX SERVICER shunt was found to be in the [...] Pharynx: Oropharynx is clear. (more content not included)...[facility]02-28-2022 NoteHNO ID: [id number] Author: Sukhi Chery APRN.VICTORIANO Service: ? Author Type: Nurse Practitioner Type: Progress Notes Filed: 07/09/2021 6:07 PM Note Text: Connected Care Unit Progress Note Patient Name: Andrew Sifuentes Patient Facility: [place] Admit Date 06/28/2021 Level of Care: Skilled [...] but nursing notes it was drawn by baker helper as vancomycin was being infused; reordered trough - PICC Line Intact - No fevers or chills per patient or staff (R53.81) Debility - Certify therapies - Maintain high falls risk precautions - pt/staff verbalize understanding validated via teach back - Monitor safety awareness Appointments for Next 60 Days Date Time Provider Location Dept Phone 07/21/2021 11:00 AM NICOLE LIM JERED [phone] HPI: (Per Dr. Beltran) Andrew Sifuentes is being seen today for senior living facility (SNF) admission AND management of weakness, tube feed, infected retroperitoneal infection and seizure. ? This is a 71 year old male who presents from [facility] with primary admitting diagnosis of [...] CT brain concerning for hydrocephalus. Tip of JUKE BOX SERVICER shunt was found to be in the [...] to facility records. OBJECTIVE: Labs/diagnostics: 07/04/2021 Glucose=91 Rr=165 K=3.8 Nd=170 CO2=24 BUN=14 Creatinine=0.5 YPV=664 Ca=9.0 Protein,Total=6.7 Albumin=3.6 UdjRlpy=335 AST=15 ALT=21 Bilirubin,Totall=0.5 WBC=10.7 RBC=4.04 Hgb=10.9 Hct=35.3 Pwgooswm=913 VancomycinTr (more content not included)...[facility] [id number] NoteHNO ID: [id number] Author: Sukhi Chery APRN.CNP Service: ? Author Type: Nurse Practitioner Type: Progress Notes Filed: 07/09/2021 5:43 PM Note Text: Connected Care Unit Progress Note Patient Name: Andrew Sifuentes Patient Facility: [place] Admit Date 06/28/2021 Level of Care: Skilled [...] unspecified type, unspecified whether septic shock present ([facility]) - Dr. Mckenzie with ID Following - Continue on Vancomycin; recent trough was 15 - PICC Line Intact (R53.81) Debility - Certify therapies - Maintain high falls risk precautions - pt/staff verbalize understanding validated via teach back - Monitor safety awareness Appointments for Next 60 Days Date Time Provider Location Dept Phone 07/21/2021 11:00 AM NICOLE LIM [phone] HPI: (Per Dr. Beltran) Andrew Sifuentes is being seen today for senior living facility (SNF) admission AND management of weakness, tube feed, infected retroperitoneal infection and seizure. ? This is a 71 year old male who presents from [facility] with primary admitting diagnosis of [...] CT brain concerning for hydrocephalus. Tip of JUKE BOX SERVICER shunt was found to be in the [...] to facility records. OBJECTIVE: Labs/diagnostics: 07/01/2021 Glucose=83 Bn=621 K=4.1 Qz=990 CO2=27 BUN=22 Creatinine=0.6 OFO=676 Ca=8.7 WBC=10.8 RBC=3.40 Hgb=9.3 Hct=29.9 Hhquyylq=270 Vital Signs: BP 128/80 Pulse 77 Temp 36.7 ?C (98 ?F) Resp 20 Ht 182.9 cm (6') Wt 113 kg (249 lb 3.2 oz) SpO2 96% BMI 33.80 kg/m? Physical Exam: Physical Exam Vitals reviewed. Constitutional: General: He is not in acute distress. (more content not included)...[facility]02-22-2022 [facility]02-22-2022 [facility]02-21-2022 [facility]02-21-2022 Note [facility]02-20-2022 [facility] 06-26-2021 [facility]02-19-2022 [facility]02-19-2022 [facility]02-18-2022 [facility]02-18-2022 [facility]02-18-2022 [facility]02-17-2022 [facility]02-17-2022 Note [facility]02-17-2022 [facility] 06-22-2021 NoteHNO ID: [id number] Author: Xiomy England RN Service: Nursing Author Type: Registered Nurse Type: Nursing Progress Note Filed: 06/22/2021 7:22 PM Note Text: RT contacted as pt has wheezing auscultated and same auditory. For prn Treatment.[facility]02-16-2022 [facility]02-16-2022 [facility]02-16-2022 [facility]02-16-2022 [facility]02-16-2022 [facility]02-15-2022 [facility]02-15-2022 Note [facility]02-15-2022 [facility] 06-21-2021 [facility]02-14-2022 [facility]02-14-2022 [facility]02-14-2022 [facility]02-14-2022 [facility]02-14-2022 [facility]02-13-2022 [facility]02-13-2022 Note [facility]02-13-2022 [facility] 06-19-2021 [facility]02-13-2022 [facility]02-12-2022 [facility]02-12-2022 [facility]02-12-2022 [facility]02-12-2022 [facility]02-12-2022 [facility]02-12-2022 Note [facility]02-12-2022 NoteHNO ID: [id number] Author: Interface Note Service: ? Author Type: ? Type: Progress Notes Filed: 06/18/2021 3:10 AM Note Text: Epic Scheduled Downtime: 06/18/2021 1:00:00 AM to 06/18/2021 2:27:00 [facility]02-11-2022 [facility]02-11-2022 Note [facility]02-11-2022 [facility] 06-17-2021 [facility]02-11-2022 [facility]02-11-2022 [facility]02-10-2022 [facility]02-10-2022 [facility]02-10-2022 [facility]02-10-2022 [facility]02-10-2022 Note [facility]02-10-2022 [facility] 06-15-2021 [facility]02-09-2022 NoteHNO ID: [id number] Author: Lamonte Kline DO Service: Neurology ICU Author Type: Resident Type: Plan of Care Filed: 06/15/2021 6:21 PM Note Text: Patient's daughter Melissa updated on plan of care and critical condition, all questions answered.[facility]02-09-2022 [facility]02-09-2022 [facility]02-09-2022 [facility]02-09-2022 [facility]02-09-2022 Note [facility]02-09-2022 [facility] 06-15-2021 [facility]02-08-2022 [facility]02-08-2022 [facility]02-08-2022 [facility]02-08-2022 [facility]02-07-2022 [facility]02-07-2022 [facility]02-07-2022 Note [facility]02-07-2022 [facility] 06-12-2021 [facility]02-06-2022 [facility]02-06-2022 [facility]02-05-2022 [facility]02-05-2022 [facility]02-04-2022 [facility]02-04-2022 [facility]02-04-2022 Note [facility]02-04-2022 [facility] 06-09-2021 [facility]02-03-2022 [facility]02-03-2022 [facility]02-03-2022 [facility]02-02-2022 [facility]02-02-2022 NoteHNO ID: [id number] Author: Luis Diaz RN Service: ? Author Type: Registered Nurse Type: Nursing Progress Note Filed: 06/08/2021 9:23 AM Note Text: Patient off the floor to OR at this time.[facility]02-02-2022 [facility]02-02-2022 [facility] 06-08-2021 NoteHNO ID: [id number] Author: Eloise Samuel RN Service: ? Author Type: Registered Nurse Type: Nursing Progress Note Filed: 06/08/2021 12:46 AM Note Text: Dr. Brito notified of changes throughout shift. No new orders [facility] time[facility] 06-07-2021 NoteHNO ID: [id number] Author: Eloise Samuel RN Service: ? Author Type: Registered Nurse Type: Nursing Progress Note Filed: 06/07/2021 8:01 PM Note Text: Neuro surg BREAKER OFF notified of downward deviation of pupils. No new orders at this time.[facility]02-01-2022 [facility]02-01-2022 [facility]02-01-2022 [facility]02-01-2022 [facility]01-31-2022 [facility]01-31-2022 [facility]01-31-2022 Note [facility]01-31-2022 [facility] 06-05-2021 [facility]01-30-2022 [facility]01-30-2022 [facility]01-29-2022 [facility]01-29-2022 NoteHNO ID: [id number] Author: Jermaine Miller PA-C Service: Neurosurgery Author Type: Physician Housemaid Type: Plan of Care Filed: 06/04/2021 1:59 PM Note Text: Discussed with Dr. Charles CT brain results. At this time, continue with EVD [facility] 5 [facility] 06-04-2021 [facility]01-28-2022 [facility]01-28-2022 NoteHNO ID: [id number] Author: Mauricio Frank DO Service: Neurology ICU Author Type: Physician Type: Plan of Care Filed: 06/03/2021 2:38 PM Note Text: I spoke with Melissa and updated her over the phone. Mauricio Frank DOL[facility]01-28-2022 [facility]01-28-2022 [facility]01-27-2022 [facility]01-27-2022 [facility]01-27-2022 Note [facility]01-26-2022 [facility] 06-01-2021 [facility]01-26-2022 [facility]01-26-2022 [facility]01-26-2022 [facility]01-25-2022 [facility]01-25-2022 [facility]01-25-2022 [facility]01-25-2022 Note [facility]01-25-2022 [facility] 05-31-2021 [facility] Diagnosis Leg swelling- Primary [...] Work Phone: Evaluation noteNo assessment information available [facility] Work Phone: Evaluation note* Diagnosis Other fatigue- [...] tract symptoms (LUTS) documented in this encounter [facility]* Diagnosis Left flank pain Abdominal pain, unspecified site Calculus of ureter documented in this encounter [facility]* Diagnosis Left flank pain- Primary Abdominal pain, unspecified site BPH with urinary obstruction Hypertrophy of prostate with urinary obstruction and other lower urinary tract symptoms (LUTS) History of kidney stones documented in this encounter [facility]* Name Dates Details Instructions not documented [id number] Work Phone: Instructions* Name Dates Details Instructions not documented [facility] [address] [place] Work Phone: Reason for referral (narrative)No reason for referral information availableWSelect [facility] Work Phone: Advance Directives No Advanced Directives Records FoundDocuments on File Type Date Recorded 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 Advance Directives and Living Will Power of Jack Winder Documents on File Type Date Recorded 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 Advance Directive(s) 06/02/2021 2:45 PM [...] Maker Relationship: 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 Adult 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) Documents on File Type Date Recorded 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 ACP-Advance Directive ACP-Power of Jack Winder Latest Code Status on File Code Status Date Activated Date Inactivated Comments Full Code 10/21/2021 4:09 AM Healthcare Agents on File Name Relationship Healthcare Agent Relationshi p Communication Melissa Gurpreet Child Primary Decision Maker deann Sifuentes Child Secondary Decision Maker Documents on File Type Date Recorded 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 ACP-Advance Directive ACP-Power of Jack Winder ACP-Do Not Resuscitate 11/01/2021 7:03 AM Latest Code Status on File Code Status Date Activated Date Inactivated Comments Full Code 10/21/2021 4:09 AM 10/29/2021 7:25 PM Healthcare Agents on File Name Relationship Healthcare Agent Relationshi p Communication Melissa Gurpreet Child Primary Decision Maker deann Sifuentes Child Secondary Decision Maker Documents on File Type Date Recorded 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 ACP-Do Not Resuscitate 11/03/2021 10:15 AM ACP-Do Not Resuscitate 11/01/2021 7:03 AM Healthcare Agents on File Name Relationship Healthcare Agent Relationshi p Communication Melissa Gurpreet Child Primary Decision Maker deann Gurpreet Child Secondary Decision Maker Documents on File Type Date Recorded 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 ACP-Do Not Resuscitate 11/03/2021 10:15 [...] Documents on File Type Date Recorded 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 DNR (Do Not Resuscitate) 10/31/2021 DNR (Do Not Resuscitate) 10/21/2021 Documents on File Type Date Recorded 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 DNR (Do Not Resuscitate) 10/31/2021 [...] WORK LABWORK Chief Complaint LAB WORK LABWORK GROUP HOME LAB WORK GROUP HOME LABWORK Chief Complaint LAB WORK LABWORK GROUP HOME LAB WORK GROUP HOME LABWORK LABWORK LABWORK GROUP HOME LAB WORK GROUP HOME LABWORK GROUP HOME LAB WORK LABWORK GROUP HOME LAB WORK LABWORK GROUP HOME LABWORK Chief Complaint LAB WORK LABWORK GROUP HOME LAB WORK GROUP HOME LABWORK LABWORK LABWORK GROUP HOME LAB WORK GROUP HOME LABWORK GROUP HOME LAB WORK LABWORK GROUP HOME LAB WORK LABWORK GROUP HOME LABWORK GROUP HOME LABWORK LABWORK Chief Complaint LAB WORK LABWORK GROUP HOME LAB WORK GROUP HOME LABWORK LABWORK LABWORK GROUP HOME LAB WORK GROUP HOME LABWORK GROUP HOME LAB WORK LABWORK GROUP HOME LAB WORK LABWORK GROUP HOME LABWORK GROUP HOME LABWORK LABWORK GROUP HOME LAB WORK Chief Complaint LABWORK GROUP HOME LAB WORK GROUP HOME LABWORK LABWORK LABWORK GROUP HOME LAB WORK GROUP HOME LABWORK GROUP HOME LAB WORK LABWORK GROUP HOME LAB WORK LABWORK GROUP HOME LABWORK GROUP HOME LABWORK LABWORK LABWORK GROUP HOME LAB WORK Chief Complaint LABWORK GROUP HOME LAB WORK GROUP HOME LABWORK LABWORK LABWORK GROUP HOME LAB WORK GROUP HOME LABWORK GROUP HOME LAB WORK LABWORK GROUP HOME LAB WORK LABWORK GROUP HOME LABWORK GROUP HOME LABWORK LABWORK LABWORK GROUP HOME LAB WORK LABWORK GROUP HOME LABWORK GROUP HOME LAB WORK GROUP HOME LABWORK Chief Complaint GROUP HOME LAB WOR K GROUP HOME LABWORK LABWORK LABWORK GROUP HOME LAB WORK GROUP HOME LABWORK GROUP HOME LAB WORK LABWORK GROUP HOME LAB WORK LABWORK GROUP HOME LABWORK GROUP HOME LABWORK LABWORK LABWORK GROUP HOME LAB WORK LABWORK GROUP HOME LABWORK GROUP HOME LAB WORK GROUP HOME LABWORK GROUP HOME LAB WORK Chief Complaint GROUP HOME LABWORK LABWORK LABWORK GROUP HOME LAB WORK GROUP HOME LABWORK GROUP HOME LAB WORK LABWORK GROUP HOME LAB WORK LABWORK GROUP HOME LABWORK GROUP HOME LABWORK LABWORK LABWORK GROUP HOME LAB WORK LABWORK GROUP HOME LABWORK GROUP HOME LAB WORK GROUP HOME LABWORK LABWORK GROUP HOME LAB WORK Chief Complaint GROUP HOME LAB WOR K GROUP HOME LABWORK GROUP HOME LAB WORK LABWORK GROUP HOME LAB WORK LABWORK GROUP HOME LABWORK GROUP HOME LABWORK LABWORK LABWORK GROUP HOME LAB WORK LABWORK GROUP HOME LABWORK GROUP HOME LAB WORK GROUP HOME LABWORK LABWORK LABWORK GROUP HOME LAB WORK GROUP HOME PATIENT GROUP HOME LABWORK GROUP HOME LABWORK Chief Complaint LABWORK GROUP HOME LAB WORK LABWORK GROUP HOME LABWORK GROUP HOME LABWORK LABWORK LABWORK GROUP HOME LAB WORK LABWORK GROUP HOME LABWORK GROUP HOME LAB WORK GROUP HOME LABWORK LABWORK LABWORK GROUP HOME LAB WORK GROUP HOME PATIENT GROUP HOME LABWORK GROUP HOME LABWORK GROUP HOME LAB WORK Chief Complaint LABWORK GROUP HOME LABWORK GROUP HOME LABWORK LABWORK LABWORK GROUP HOME LAB WORK LABWORK GROUP HOME LABWORK GROUP HOME LAB WORK GROUP HOME LABWORK LABWORK LABWORK GROUP HOME LAB WORK GROUP HOME PATIENT GROUP HOME LABWORK GROUP HOME LABWORK GROUP HOME LAB WORK GROUP HOME LAB WORK GROUP HOME LAB WORK Chief Complaint LABWORK LABWORK GROUP HOME LAB WORK GROUP HOME PATIENT GROUP HOME LABWORK GROUP HOME LABWORK GROUP HOME LAB WORK GROUP HOME LAB WORK GROUP HOME LAB WORK GROUP HOME LABWORK GROUP HOME LABWORK LABWORK GROUP HOME LAB WORK LABWORK Chief Complaint GROUP HOME LAB WOR K GROUP HOME PATIENT GROUP HOME LABWORK GROUP HOME LABWORK GROUP HOME LAB WORK GROUP HOME LAB WORK GROUP HOME LAB WORK GROUP HOME LABWORK GROUP HOME LABWORK LABWORK GROUP HOME LAB WORK LABWORK GROUP HOME LABWORK Chief Complaint GROUP HOME PATIENT GROUP HOME LABWORK GROUP HOME LABWORK GROUP HOME LAB WORK GROUP HOME LAB WORK GROUP HOME LAB WORK GROUP HOME LABWORK GROUP HOME LABWORK LABWORK GROUP HOME LAB WORK LABWORK GROUP HOME LABWORK GROUP HOME LABWORK Chief Complaint GROUP HOME LABWORK GROUP HOME LAB WORK GROUP HOME LAB WORK GROUP HOME LAB WORK GROUP HOME LABWORK GROUP HOME LABWORK LABWORK GROUP HOME LAB WORK LABWORK GROUP HOME LABWORK GROUP HOME LABWORK GROUP HOME LABWORK Chief Complaint GROUP HOME LABWORK GROUP HOME LAB WORK GROUP HOME LAB WORK GROUP HOME LAB WORK GROUP HOME LABWORK GROUP HOME LABWORK LABWORK GROUP HOME LAB WORK LABWORK GROUP HOME LABWORK GROUP HOME LABWORK GROUP HOME LABWORK GROUP HOME LABWORK Chief Complaint GROUP HOME LABWORK LABWORK GROUP HOME LAB WORK LABWORK GROUP HOME LABWORK GROUP HOME LABWORK GROUP HOME LABWORK GROUP HOME LABWORK GROUP HOME LABWORK LABWORK GROUP HOME LABWORK Chief Complaint LABWORK GROUP HOME LAB WORK LABWORK GROUP HOME LABWORK GROUP HOME LABWORK GROUP HOME LABWORK GROUP HOME LABWORK GROUP HOME LABWORK LABWORK LABWORK GROUP HOME LABWORK GROUP HOME LAB WORK GROUP HOME LABWORK GROUP HOME LAB WORK Chief Complaint LABWORK GROUP HOME LAB WORK LABWORK GROUP HOME LABWORK GROUP HOME LABWORK GROUP HOME LABWORK GROUP HOME LABWORK GROUP HOME LABWORK LABWORK LABWORK GROUP HOME LABWORK GROUP HOME LAB WORK GROUP HOME LABWORK GROUP HOME LAB WORK GROUP HOME LABWORK Chief Complaint LABWORK GROUP HOME LAB WORK LABWORK GROUP HOME LABWORK GROUP HOME LABWORK GROUP HOME LABWORK GROUP HOME LABWORK GROUP HOME LABWORK LABWORK LABWORK GROUP HOME LABWORK GROUP HOME LAB WORK GROUP HOME LABWORK GROUP HOME LAB WORK GROUP HOME LABWORK LABWORK Chief Complaint GROUP HOME LABWORK GROUP HOME LABWORK GROUP HOME LABWORK GROUP HOME LABWORK GROUP HOME LABWORK LABWORK LABWORK GROUP HOME LABWORK GROUP HOME LAB WORK GROUP HOME LABWORK GROUP HOME LAB WORK GROUP HOME LABWORK LABWORK GROUP HOME LABWORK Chief Complaint GROUP HOME LABWORK GROUP HOME LABWORK GROUP HOME LABWORK GROUP HOME LABWORK GROUP HOME LABWORK LABWORK LABWORK GROUP HOME LABWORK GROUP HOME LAB WORK GROUP HOME LABWORK GROUP HOME LAB WORK GROUP HOME LABWORK LABWORK GROUP HOME LABWORK LABWORK Chief Complaint GROUP HOME LABWORK LABWORK LABWORK GROUP HOME LABWORK GROUP HOME LAB WORK GROUP HOME LABWORK GROUP HOME LAB WORK GROUP HOME LABWORK LABWORK GROUP HOME LABWORK LABWORK GROUP HOME LAB WORK GROUP HOME LAB WORK GROUP HOME LABWORK Chief Complaint LABWORK GROUP HOME LABWORK LABWORK GROUP HOME LAB WORK GROUP HOME LAB WORK GROUP HOME LABWORK GROUP HOME LABWORK GROUP HOME LAB WORK GROUP HOME LAB WORK GROUP HOME LAB WORK LABWORK GROUP HOME LABWORK Chief Complaint GROUP HOME LAB WOR K GROUP HOME LAB WORK GROUP HOME LABWORK GROUP HOME LABWORK GROUP HOME LAB WORK GROUP HOME LAB WORK GROUP HOME LAB WORK LABWORK GROUP HOME LABWORK LABWORK GROUP HOME LAB WORK GROUP HOME LAB WORK Chief Complaint GROUP HOME LAB WOR K GROUP HOME LABWORK GROUP HOME LABWORK GROUP HOME LAB WORK GROUP HOME LAB WORK GROUP HOME LAB WORK LABWORK GROUP HOME LABWORK LABWORK GROUP HOME LAB WORK GROUP HOME LAB WORK Chief Complaint GROUP HOME LABWORK GROUP HOME LABWORK GROUP HOME LAB WORK GROUP HOME LAB WORK GROUP HOME LAB WORK LABWORK GROUP HOME LABWORK LABWORK GROUP HOME LAB WORK GROUP HOME LAB WORK GROUP HOME LABWORK LABWORK LABWORK Chief Complaint GROUP HOME LAB WOR K GROUP HOME LAB WORK GROUP HOME LAB WORK LABWORK GROUP HOME LABWORK LABWORK GROUP HOME LAB WORK GROUP HOME LAB WORK GROUP HOME LABWORK LABWORK LABWORK LABWORK LABWORK LABWORK Chief Complaint GROUP HOME LAB WOR K LABWORK GROUP HOME LABWORK LABWORK GROUP HOME LAB WORK GROUP HOME LAB WORK GROUP HOME LABWORK LABWORK LABWORK LABWORK LABWORK GROUP HOME LABWORK GROUP HOME LAB WORK LABWORK GROUP HOME LAB WORK GROUP HOME LAB WORK Chief Complaint GROUP HOME LAB WOR K LABWORK GROUP HOME LABWORK LABWORK GROUP HOME LAB WORK GROUP HOME LAB WORK GROUP HOME LABWORK LABWORK LABWORK LABWORK LABWORK GROUP HOME LABWORK GROUP HOME LAB WORK LABWORK GROUP HOME LAB WORK GROUP HOME LAB WORK GROUP HOME LABWORK Chief Complaint GROUP HOME LAB WOR K GROUP HOME LAB WORK GROUP HOME LABWORK LABWORK LABWORK LABWORK LABWORK GROUP HOME LABWORK GROUP HOME LAB WORK LABWORK GROUP HOME LAB WORK GROUP HOME LAB WORK GROUP HOME LABWORK NUSING HOME LAB WORK Chief Complaint GROUP HOME LAB WOR K GROUP HOME LABWORK LABWORK LABWORK LABWORK LABWORK GROUP HOME LABWORK GROUP HOME LAB WORK LABWORK GROUP HOME LAB WORK GROUP HOME LAB WORK GROUP HOME LABWORK NUSING HOME LAB WORK LABWORK Chief Complaint GROUP HOME LAB WOR K GROUP HOME LABWORK LABWORK LABWORK LABWORK LABWORK GROUP HOME LABWORK GROUP HOME LAB WORK LABWORK GROUP HOME LAB WORK GROUP HOME LAB WORK GROUP HOME LABWORK NUSING HOME LAB WORK GROUP HOME LABWORK LABWORK Chief Complaint LABWORK GROUP HOME LAB WORK GROUP HOME LAB WORK GROUP HOME LABWORK NUSING HOME LAB WORK GROUP HOME LABWORK LABWORK GROUP HOME LABWORK GROUP HOME LAB WORK LABWORK LABWORK Chief Complaint NUSING HOME LAB WORK GROUP HOME LABWORK LABWORK GROUP HOME LABWORK GROUP HOME LAB WORK LABWORK GROUP HOME LAB WORK LABWORK LABWORK Chief Complaint NUSING HOME LAB WORK GROUP HOME LABWORK LABWORK GROUP HOME LABWORK GROUP HOME LAB WORK LABWORK GROUP HOME LAB WORK LABWORK GROUP HOME LAB WORK LABWORK Chief Complaint GROUP HOME LABWORK LABWORK GROUP HOME LABWORK GROUP HOME LAB WORK LABWORK GROUP HOME LAB WORK LABWORK GROUP HOME LAB WORK LABWORK LABWORK Chief Complaint GROUP HOME LABWORK LABWORK GROUP HOME LABWORK GROUP HOME LAB WORK LABWORK GROUP HOME LAB WORK LABWORK GROUP HOME LAB WORK LABWORK LABWORK LABWORK Chief Complaint GROUP HOME LABWORK LABWORK GROUP HOME LABWORK GROUP HOME LAB WORK LABWORK GROUP HOME LAB WORK LABWORK GROUP HOME LAB WORK LABWORK LABWORK LABWORK LABWORK Chief Complaint GROUP HOME LABWORK LABWORK GROUP HOME LABWORK GROUP HOME LAB WORK LABWORK GROUP HOME LAB WORK LABWORK GROUP HOME LAB WORK LABWORK LABWORK GROUP HOME LAB WORK LABWORK LABWORK LABWORK Chief Complaint LABWORK GROUP HOME LABWORK GROUP HOME LAB WORK LABWORK GROUP HOME LAB WORK LABWORK GROUP HOME LAB WORK LABWORK LABWORK GROUP HOME LAB WORK LABWORK LABWORK LABWORK LABWORK LABWORK LABWORK LABWORK Chief Complaint GROUP HOME LABWORK GROUP HOME LAB WORK LABWORK GROUP HOME LAB WORK LABWORK GROUP HOME LAB WORK LABWORK LABWORK GROUP HOME LAB WORK LABWORK LABWORK LABWORK LABWORK LABWORK LABWORK LABWORK LABWORK Chief Complaint LABWORK GROUP HOME LAB WORK LABWORK GROUP HOME LAB WORK LABWORK LABWORK GROUP HOME LAB WORK LABWORK LABWORK LABWORK LABWORK LABWORK LABWORK LABWORK LABWORK LABWORK Chief Complaint GROUP HOME LABWORK LABWORK LABWORK LABWORK LABWORK GROUP HOME LABWORK GROUP HOME LAB WORK LABWORK GROUP HOME LAB WORK GROUP HOME LAB WORK GROUP HOME LABWORK NUSING HOME LAB WORK GROUP HOME LABWORK LABWORK GROUP HOME LABWORK GROUP HOME LAB WORK Chief Complaint Admit Date GROUP HOME LAB WORK March 13, 2024 5:00am LABWORK March 14, 2024 5 :00am GROUP HOME LAB WORK March 17 4 5:00am GROUP HOME LAB WORK March 18 5:00am GROUP HOME LAB WORK March 19 4:00am GROUP HOME LAB WORK March 20 4 5:00am GROUP HOME LAB WORK March 24 4 5:00am GROUP HOME LAB WORK March 27 5:00am LABWORK March 31, 2024 5:00am GROUP HOME LAB WORK April 04 5:00am LABWORK April 07, 2024 5 :00am GROUP HOME LAB WORK April 10, 2024 5:00am GROUP HOME LAB WORK April 14, 2024 5:00am GROUP HOME LAB WORK April 17 5:00am LABWORK April 21, 2024 5:00am GROUP HOME LAB WORK April 24 4:00am LABWORK April 28, 2024 5:00am GROUP HOME LAB WORK May 01 4:00am GROUP HOME LAB WORK May 05 5:00am GROUP HOME LAB WORK May 08, 2024 5:00am GROUP HOME LAB WORK May 09, 2024 4:00am LABWORK May 12, 2024 5: 00am GROUP HOME LAB WORK May 15, 2024 5:00am GROUP HOME LAB WORK May 19, 2024 4:00am GROUP HOME LAB WORK May 20, 2024 5:00am GROUP HOME LAB WORK May 22, 2024 5:00am LABWORK May 26, 2024 5 :00am GROUP HOME LAB WORK May 29, 2024 5:00am GROUP HOME LAB WORK June 02, 2024 5:00am GROUP HOME LAB WORK June 05, 2024 5:00am LABWORK June 09, 2024 5 :00am GROUP HOME LAB WORK June 12, 2024 5:00am GROUP HOME LAB WORK June 16 5:00am GROUP HOME LAB WORK June 19 5:00am LABWORK June 23, 2024 5:00am GROUP HOME LAB WORK June 26 5:00am GROUP HOME LAB WORK June 30 5:00am Chief Complaint Admit Date LABWORK April 07, 2024 5 :00am GROUP HOME LAB WORK April 10, 2024 5:00am GROUP HOME LAB WORK April 14, 2024 5:00am GROUP HOME LAB WORK April 17 5:00am LABWORK April 21, 2024 5:00am GROUP HOME LAB WORK April 24 4:00am LABWORK April 28, 2024 5:00am GROUP HOME LAB WORK May 01 4:00am GROUP HOME LAB WORK May 05 5:00am GROUP HOME LAB WORK May 08, 2024 5:00am GROUP HOME LAB WORK May 09, 2024 4:00am LABWORK May 12, 2024 5: 00am GROUP HOME LAB WORK May 15, 2024 5:00am GROUP HOME LAB WORK May 19, 2024 4:00am GROUP HOME LAB WORK May 20, 2024 5:00am GROUP HOME LAB WORK May 22, 2024 5:00am LABWORK May 26, 2024 5 :00am GROUP HOME LAB WORK May 29, 2024 5:00am GROUP HOME LAB WORK June 02, 2024 5:00am GROUP HOME LAB WORK June 05, 2024 5:00am LABWORK June 09, 2024 5 :00am GROUP HOME LAB WORK June 12, 2024 5:00am GROUP HOME LAB WORK June 16 5:00am GROUP HOME LAB WORK June 19 5:00am LABWORK June 23, 2024 5:00am GROUP HOME LAB WORK June 26 5:00am GROUP HOME LAB WORK June 30 5:00am GROUP HOME LAB WORK July 03 5:00am GROUP HOME LAB WORK July 07, 2024 4: 00am LABWORK July 11, 2024 5:00 am LABWORK July 14, 2024 5:0 0am GROUP HOME LAB WORK July 17, 2024 4 :00am GROUP HOME LAB WORK July 24, 2024 4 :00am Chief Complaint Admit Date GROUP HOME LAB WORK April 14, 2024 5:00am GROUP HOME LAB WORK April 17 5:00am LABWORK April 21, 2024 5:00am GROUP HOME LAB WORK April 24 4:00am LABWORK April 28, 2024 5:00am GROUP HOME LAB WORK May 01 4:00am GROUP HOME LAB WORK May 05 5:00am GROUP HOME LAB WORK May 08, 2024 5:00am GROUP HOME LAB WORK May 09, 2024 4:00am LABWORK May 12, 2024 5: 00am GROUP HOME LAB WORK May 15, 2024 5:00am GROUP HOME LAB WORK May 19, 2024 4:00am GROUP HOME LAB WORK May 20, 2024 5:00am GROUP HOME LAB WORK May 22, 2024 5:00am LABWORK May 26, 2024 5 :00am GROUP HOME LAB WORK May 29, 2024 5:00am GROUP HOME LAB WORK June 02, 2024 5:00am GROUP HOME LAB WORK June 05, 2024 5:00am LABWORK June 09, 2024 5 :00am GROUP HOME LAB WORK June 12, 2024 5:00am GROUP HOME LAB WORK June 16 5:00am GROUP HOME LAB WORK June 19 5:00am LABWORK June 23, 2024 5:00am GROUP HOME LAB WORK June 26 5:00am GROUP HOME LAB WORK June 30 5:00am GROUP HOME LAB WORK July 03 5:00am GROUP HOME LAB WORK July 07, 2024 4: 00am LABWORK July 11, 2024 5:00 am LABWORK July 14, 2024 5:0 0am GROUP HOME [facility] WORK July 17, 2024 4 :00am [facility] WORK July 24, 2024 4 :00am LABWORK July 25, 2024 5:0 0am Chief Complaint Admit Date GROUP HOME LAB WORK April 14, 2024 5:00am [facility] WORK April 17 5:00am LABWORK April 21, 2024 5:00am [facility] WORK April 24 4:00am LABWORK April 28, 2024 5:00am GROUP [facility] WORK May 01 4:00am GROUP HOME [facility] WORK May 05 5:00am GROUP HOME [facility] WORK May 08, 2024 5:00am GROUP HOME LAB WORK May 09, 2024 4:00am LABWORK May 12, 2024 5: 00am GROUP HOME LAB WORK May 15, 2024 5:00am GROUP HOME LAB WORK May 19, 2024 4:00am GROUP HOME LAB WORK May 20, 2024 5:00am GROUP HOME LAB WORK May 22, 2024 5:00am LABWORK May 26, 2024 5 :00am GROUP HOME LAB WORK May 29, 2024 5:00am GROUP HOME LAB WORK June 02, 2024 5:00am GROUP HOME LAB WORK June 05, 2024 5:00am LABWORK June 09, 2024 5 :00am GROUP HOME LAB WORK June 12, 2024 5:00am GROUP HOME LAB WORK June 16 5:00am GROUP HOME LAB WORK June 19 5:00am LABWORK June 23, 2024 5:00am GROUP HOME LAB WORK June 26 5:00am GROUP HOME LAB WORK June 30 5:00am GROUP HOME LAB WORK July 03 5:00am GROUP HOME LAB WORK July 07, 2024 4: 00am LABWORK July 11, 2024 5:00 am LABWORK July 14, 2024 5:0 0am GROUP HOME LAB WORK July 17, 2024 4 :00am GROUP HOME LAB WORK July 21, 2024 5 :00am GROUP HOME LAB WORK July 24, 2024 4 :00am LABWORK July 25, 2024 5:0 0am GROUP HOME LAB WORK July 31, 2024 4 :00am Chief Complaint Admit Date GROUP HOME LAB WORK April 17 5:00am LABWORK April 21, 2024 5:00am GROUP HOME LAB WORK April 24 4:00am LABWORK April 28, 2024 5:00am GROUP HOME LAB WORK May 01 4:00am GROUP HOME LAB WORK May 05 5:00am GROUP HOME LAB WORK May 08, 2024 5:00am GROUP HOME LAB WORK May 09, 2024 4:00am LABWORK May 12, 2024 5: 00am GROUP HOME LAB WORK May 15, 2024 5:00am GROUP HOME LAB WORK May 19, 2024 4:00am GROUP HOME LAB WORK May 20, 2024 5:00am GROUP HOME LAB WORK May 22, 2024 5:00am LABWORK May 26, 2024 5 :00am GROUP HOME LAB WORK May 29, 2024 5:00am GROUP HOME LAB WORK June 02, 2024 5:00am GROUP HOME LAB WORK June 05, 2024 5:00am LABWORK June 09, 2024 5 :00am GROUP HOME LAB WORK June 12, 2024 5:00am GROUP HOME LAB WORK June 16 5:00am GROUP HOME LAB WORK June 19 5:00am LABWORK June 23, 2024 5:00am GROUP HOME LAB WORK June 26 5:00am GROUP HOME LAB WORK June 30 5:00am GROUP HOME LAB WORK July 03 5:00am GROUP HOME LAB WORK July 07, 2024 4: 00am LABWORK July 11, 2024 5:00 am LABWORK July 14, 2024 5:0 0am GROUP HOME LAB WORK July 17, 2024 4 :00am GROUP HOME LAB WORK July 21, 2024 5 :00am GROUP HOME LAB WORK July 24, 2024 4 :00am LABWORK July 25, 2024 5:0 0am GROUP HOME LAB WORK July 28, 2024 5 :00am GROUP HOME LAB WORK July 31, 2024 4 :00am Chief Complaint Admit Date GROUP HOME LAB WORK April 24 4:00am LABWORK April 28, 2024 5:00am GROUP HOME LAB WORK May 01 4:00am GROUP HOME LAB WORK May 05 5:00am GROUP HOME LAB WORK May 08, 2024 5:00am GROUP HOME LAB WORK May 09, 2024 4:00am LABWORK May 12, 2024 5: 00am GROUP HOME LAB WORK May 15, 2024 5:00am GROUP HOME LAB WORK May 19, 2024 4:00am GROUP HOME LAB WORK May 20, 2024 5:00am GROUP HOME LAB WORK May 22, 2024 5:00am LABWORK May 26, 2024 5 :00am GROUP HOME LAB WORK May 29, 2024 5:00am GROUP HOME LAB WORK June 02, 2024 5:00am GROUP HOME LAB WORK June 05, 2024 5:00am LABWORK June 09, 2024 5 :00am GROUP HOME LAB WORK June 12, 2024 5:00am GROUP HOME LAB WORK June 16 5:00am GROUP HOME LAB WORK June 19 5:00am LABWORK June 23, 2024 5:00am GROUP HOME LAB WORK June 26 5:00am GROUP HOME LAB WORK June 30 5:00am GROUP HOME LAB WORK July 03 5:00am GROUP HOME LAB WORK July 07, 2024 4: 00am LABWORK July 11, 2024 5:00 am LABWORK July 14, 2024 5:0 0am GROUP HOME LAB WORK July 17, 2024 4 :00am GROUP HOME LAB WORK July 21, 2024 5 :00am GROUP HOME LAB WORK July 24, 2024 4 :00am LABWORK July 25, 2024 5:0 0am GROUP HOME LAB WORK July 28, 2024 5 :00am GROUP HOME LAB WORK July 31, 2024 4 :00am LABWORK August 04, 2024 5:0 0am Chief Complaint Admit Date GROUP HOME LAB WORK May 15, 2024 5:00am GROUP HOME LAB WORK May 19, 2024 4:00am GROUP HOME LAB WORK May 20, 2024 5:00am GROUP HOME LAB WORK May 22, 2024 5:00am LABWORK May 26, 2024 5 :00am GROUP HOME LAB WORK May 29, 2024 5:00am GROUP HOME LAB WORK June 02, 2024 5:00am GROUP HOME LAB WORK June 05, 2024 5:00am LABWORK June 09, 2024 5 :00am GROUP HOME LAB WORK June 12, 2024 5:00am GROUP HOME LAB WORK June 16 5:00am GROUP HOME LAB WORK June 19 5:00am LABWORK June 23, 2024 5:00am GROUP HOME LAB WORK June 26 5:00am GROUP HOME LAB WORK June 30 5:00am GROUP HOME LAB WORK July 03 5:00am GROUP HOME LAB WORK July 07, 2024 4: 00am LABWORK July 11, 2024 5:00 am LABWORK July 14, 2024 5:0 0am GROUP HOME LAB WORK July 17, 2024 4 :00am GROUP HOME LAB WORK July 21, 2024 5 :00am GROUP HOME LAB WORK July 24, 2024 4 :00am LABWORK July 25, 2024 5:0 0am GROUP HOME LAB WORK July 28, 2024 5 :00am GROUP HOME LAB WORK July 31, 2024 4 :00am LABWORK August 04, 2024 5:0 0am LABWORK August 07, 2024 5:00 am GROUP HOME LAB WORK August 11, 2024 5: 00am GROUP HOME LAB WORK August 14, 2024 5 :00am GROUP HOME LAB WORK August 18, 2024 5 :00am Chief Complaint Admit Date GROUP HOME LAB WORK May 20, 2024 5:00am [facility] WORK May 22, 2024 5:00am LABWORK May 26, 2024 5 :00am [facility] WORK May 29, 2024 5:00am [facility] WORK June 02, 2024 5:00am [facility] WORK June 05, 2024 5:00am LABWORK June 09, 2024 5 :00am GROUP HOME LAB WORK June 12, 2024 5:00am GROUP HOME LAB WORK June 16 5:00am [facility] WORK June 19 5:00am LABWORK June 23, 2024 5:00am GROUP HOME [facility] WORK June 26 5:00am GROUP HOME LAB WORK June 30 5:00am GROUP HOME LAB WORK July 03 5:00am GROUP HOME [facility] WORK July 07, 2024 4: 00am LABWORK July 11, 2024 5:00 am LABWORK July 14, 2024 5:0 0am [facility] HOME [facility] WORK July 17, 2024 4 :00am [facility] WORK July 21, 2024 5 :00am [facility] WORK July 24, 2024 4 :00am LABWORK July 25, 2024 5:0 0am [facility] WORK July 28, 2024 5 :00am [facility] WORK July 31, 2024 4 :00am LABWORK August 04, 2024 5:0 0am LABWORK August 07, 2024 5:00 am GROUP HOME [facility] WORK August 11, 2024 5: 00am [facility] HOME [facility] WORK August 14, 2024 5 :00am GROUP [facility] WORK August 18, 2024 5 :00am LABWORK August 28, 2024 5:0 0am Chief Complaint Admit Date GROUP HOME LAB WORK May 22, 2024 5:00am LABWORK May 26, 2024 5 :00am GROUP HOME [facility] WORK May 29, 2024 5:00am GROUP HOME LAB WORK June 02, 2024 5:00am GROUP HOME LAB WORK June 05, 2024 5:00am LABWORK June 09, 2024 5 :00am GROUP HOME LAB WORK June 12, 2024 5:00am GROUP HOME LAB WORK June 16 5:00am GROUP HOME LAB WORK June 19 5:00am LABWORK June 23, 2024 5:00am GROUP HOME LAB WORK June 26 5:00am GROUP HOME LAB WORK June 30 5:00am GROUP HOME LAB WORK July 03 5:00am GROUP HOME LAB WORK July 07, 2024 4: 00am LABWORK July 11, 2024 5:00 am LABWORK July 14, 2024 5:0 0am GROUP HOME LAB WORK July 17, 2024 4 :00am GROUP HOME LAB WORK July 21, 2024 5 :00am GROUP HOME LAB WORK July 24, 2024 4 :00am LABWORK July 25, 2024 5:0 0am GROUP HOME LAB WORK July 28, 2024 5 :00am [facility] HOME LAB WORK July 31, 2024 4 :00am LABWORK August 04, 2024 5:0 0am LABWORK August 07, 2024 5:00 am GROUP HOME LAB WORK August 11, 2024 5: 00am GROUP [facility] WORK August 14, 2024 5 :00am GROUP [facility] LAB WORK August 18, 2024 5 :00am GROUP [facility] LAB WORK August 21, 2024 5 :00am LABWORK August 28, 2024 5:0 0am LABWORK September 01, 2024 5:0 0am Chief Complaint Admit Date GROUP HOME LAB WORK June 05, 2024 5:00am LABWORK June 09, 2024 5 :00am GROUP HOME LAB WORK June 12, 2024 5:00am GROUP HOME LAB WORK June 16 5:00am GROUP HOME LAB WORK June 19 5:00am LABWORK June 23, 2024 5:00am GROUP HOME LAB WORK June 26 5:00am GROUP HOME LAB WORK June 30 5:00am GROUP HOME LAB WORK July 03 5:00am GROUP HOME LAB WORK July 07, 2024 4: 00am LABWORK July 11, 2024 5:00 am LABWORK July 14, 2024 5:0 0am GROUP HOME LAB WORK July 17, 2024 4 :00am GROUP HOME LAB WORK July 21, 2024 5 :00am GROUP HOME LAB WORK July 24, 2024 4 :00am LABWORK July 25, 2024 5:0 0am GROUP HOME LAB WORK July 28, 2024 5 :00am GROUP HOME LAB WORK July 31, 2024 4 :00am LABWORK August 04, 2024 5:0 0am LABWORK August 07, 2024 5:00 am GROUP HOME LAB WORK August 11, 2024 5: 00am GROUP HOME LAB WORK August 14, 2024 5 :00am GROUP HOME LAB WORK August 18, 2024 5 :00am GROUP HOME LAB WORK August 21, 2024 5 :00am GROUP HOME LAB WORK August 25, 2024 4 :00am LABWORK August 28, 2024 5:0 0am LABWORK September 01, 2024 5:0 0am LABWORK September 04, 2024 5:00am Chief Complaint Admit Date GROUP HOME LAB WORK June 05, 2024 5:00am LABWORK June 09, 2024 5 :00am GROUP HOME LAB WORK June 12, 2024 5:00am GROUP HOME LAB WORK June 16 5:00am GROUP HOME LAB WORK June 19 5:00am LABWORK June 23, 2024 5:00am GROUP HOME LAB WORK June 26 5:00am GROUP HOME LAB WORK June 30 5:00am GROUP HOME LAB WORK July 03 5:00am GROUP HOME LAB WORK July 07, 2024 4: 00am LABWORK July 11, 2024 5:00 am LABWORK July 14, 2024 5:0 0am GROUP HOME LAB WORK July 17, 2024 4 :00am GROUP HOME LAB WORK July 21, 2024 5 :00am GROUP HOME LAB WORK July 24, 2024 4 :00am LABWORK July 25, 2024 5:0 0am GROUP HOME LAB WORK July 28, 2024 5 :00am GROUP HOME LAB WORK July 31, 2024 4 :00am LABWORK August 04, 2024 5:0 0am LABWORK August 07, 2024 5:00 am GROUP HOME LAB WORK August 11, 2024 5: 00am GROUP HOME LAB WORK August 14, 2024 5 :00am GROUP HOME LAB WORK August 18, 2024 5 :00am GROUP HOME LAB WORK August 21, 2024 5 :00am GROUP HOME LAB WORK August 25, 2024 4 :00am LABWORK August 28, 2024 5:0 0am LABWORK September 01, 2024 5:0 0am LABWORK September 04, 2024 5:00am LABWORK September 15, 2024 5:00a m Chief Complaint Admit Date GROUP HOME LAB WORK June 19 5:00am LABWORK June 23, 2024 5:00am GROUP HOME LAB WORK June 26 5:00am GROUP HOME LAB WORK June 30 5:00am GROUP HOME LAB WORK July 03 5:00am GROUP HOME LAB WORK July 07, 2024 4: 00am LABWORK July 11, 2024 5:00 am LABWORK July 14, 2024 5:0 0am GROUP HOME LAB WORK July 17, 2024 4 :00am GROUP HOME LAB WORK July 21, 2024 5 :00am GROUP HOME LAB WORK July 24, 2024 4 :00am LABWORK July 25, 2024 5:0 0am GROUP HOME LAB WORK July 28, 2024 5 :00am GROUP HOME LAB WORK July 31, 2024 4 :00am LABWORK August 04, 2024 5:0 0am LABWORK August 07, 2024 5:00 am GROUP HOME LAB WORK August 11, 2024 5: 00am GROUP HOME LAB WORK August 14, 2024 5 :00am GROUP HOME LAB WORK August 18, 2024 5 :00am GROUP HOME LAB WORK August 21, 2024 5 :00am GROUP HOME LAB WORK August 25, 2024 4 :00am LABWORK August 28, 2024 5:0 0am LABWORK September 01, 2024 5:0 0am LABWORK September 04, 2024 5:00am GROUP HOME LAB WORK September 08, 2024 4:00 am GROUP HOME LAB WORK September 11, 2024 5:00 am LABWORK September 15, 2024 5:00a m GROUP HOME LAB WORK September 25, 2024 5:0 0am GROUP HOME LAB WORK September 30, 2024 4:0 0am Chief Complaint Admit Date GROUP HOME LAB WORK June 12, 2024 5:00am GROUP HOME LAB WORK June 16 5:00am GROUP HOME LAB WORK June 19 5:00am LABWORK June 23, 2024 5:00am GROUP HOME LAB WORK June 26 5:00am GROUP HOME LAB WORK June 30 5:00am GROUP HOME LAB WORK July 03 5:00am GROUP HOME LAB WORK July 07, 2024 4: 00am LABWORK July 11, 2024 5:00 am LABWORK July 14, 2024 5:0 0am GROUP HOME LAB WORK July 17, 2024 4 :00am GROUP HOME LAB WORK July 21, 2024 5 :00am GROUP HOME LAB WORK July 24, 2024 4 :00am LABWORK July 25, 2024 5:0 0am GROUP HOME LAB WORK July 28, 2024 5 :00am GROUP HOME LAB WORK July 31, 2024 4 :00am LABWORK August 04, 2024 5:0 0am LABWORK August 07, 2024 5:00 am GROUP HOME LAB WORK August 11, 2024 5: 00am GROUP HOME LAB WORK August 14, 2024 5 :00am GROUP HOME LAB WORK August 18, 2024 5 :00am GROUP HOME LAB WORK August 21, 2024 5 :00am GROUP HOME LAB WORK August 25, 2024 4 :00am LABWORK August 28, 2024 5:0 0am LABWORK September 01, 2024 5:0 0am LABWORK September 04, 2024 5:00am GROUP HOME LAB WORK September 08, 2024 4:00 am LABWORK September 15, 2024 5:00a m Chief Complaint Admit Date GROUP HOME LAB WORK July 07, 2024 4: 00am LABWORK July 11, 2024 5:00 am LABWORK July 14, 2024 5:0 0am GROUP HOME LAB WORK July 17, 2024 4 :00am GROUP HOME LAB WORK July 21, 2024 5 :00am GROUP HOME LAB WORK July 24, 2024 4 :00am LABWORK July 25, 2024 5:0 0am GROUP HOME LAB WORK July 28, 2024 5 :00am GROUP HOME LAB WORK July 31, 2024 4 :00am LABWORK August 04, 2024 5:0 0am LABWORK August 07, 2024 5:00 am GROUP HOME LAB WORK August 11, 2024 5: 00am GROUP HOME LAB WORK August 14, 2024 5 :00am GROUP HOME LAB WORK August 18, 2024 5 :00am GROUP HOME LAB WORK August 21, 2024 5 :00am GROUP HOME LAB WORK August 25, 2024 4 :00am LABWORK August 28, 2024 5:0 0am LABWORK September 01, 2024 5:0 0am LABWORK September 04, 2024 5:00am GROUP HOME LAB WORK September 08, 2024 4:00 am GROUP HOME LAB WORK September 11, 2024 5:00 am LABWORK September 15, 2024 5:00a m GROUP HOME LAB WORK September 18, 2024 5:0 0am GROUP HOME LAB WORK September 22, 2024 5:0 0am GROUP HOME LAB WORK September 25, 2024 5:0 0am GROUP HOME LAB WORK September 30, 2024 4:0 0am GROUP HOME LAB WORK October 02, 2024 5:0 0am GROUP HOME LAB WORK October 09, 2024 5:0 0am Reason for Referral Specialty Diagnoses / Procedures Referred By Contac t Referred To Contact Urology Diagnoses Other fatigue Lanette Munguia DO [address] [place] [address] [facility] [address] [facility] [place] [address] Referral ID Status Reason Start Date Expiration Date V isits Requested Visits Authorized [id number] Open Specialty Services Required 11/01/2021 11/01/2022 1 1 Scheduling Instructions [facility] - [address] , [address] [place], [place] [address] Specialty Diagnoses / Procedures Referred By Contac t Referred To Contact IP Unit Diagnoses Heel ulceration, left, with unspecified severity (HCC) Henry Hidalgo PA [address] [place] [address] [facility] [address] [place] [id number] Referral ID Status Reason Start Date Expiration Date V isits Requested Visits Authorized [id number] Open Specialty Services Required 12/22/2021 12/22/2022 1 1 Scheduling Instructions [facility] - [facility] [address] [place] [address] Comments Please use the parking lot located on [address] or [address]. There are handicap parking spots located in a small lot beside the wound care entrance off of [id number]. Please be advised there is a small incline from those handicap spots to our main door. Bring photo ID and insurance card to photocopy. Wear loose fitting clothing (to easily access wound). Bring list of medications (or can be sent by office). Check in at Registration for your first visit. Please call us directly with any questions [phone]. We look forward to helping you heal. Specialty Diagnoses / Procedures Referred By Contac t Referred To Contact Radiology Diagnoses Left flank pain Calculus of ureter Procedures CT abdomen pelvis wo IV contrast Rebecca Buck MD [address] [place] [address] Referral ID Status Reason Start Date Expiration Date V isits Requested Visits Authorized [id number] Pending Review 08/13/2023 08/12/2024 1 1 Referral ID Status Reason Start Date Expiration Date Visits Re quested Visits Authorized [id number] Closed 08/17/2023 09/16/2023 1 1 Additional Source Comments Source Comments (unrecognize d section and content) In the event this informatio n is protected by the Federal Confidentiality of Alcohol and Drug Abuse Patient Records regulations: The Federal rules restrict any use of the information to criminally investigate or prosecute any alcohol or drug abuse patient.[facility] the event this information is protected by the Federal Confidentiality of Alcohol and Drug Abuse Patient Records regulations: The Federal rules restrict any use of the information to criminally investigate or prosecute any alcohol or drug abuse patient.[facility] (unrecognized sect ion and content) No Status Records FoundNo Status Records FoundNo Status Records FoundNo Status Records FoundNo Status Records FoundNo Status Records FoundNo Status Records FoundNo Status Records FoundNo Status Records FoundNo Status Records Found INFORMATION SOURCE (unrecogn ized section and content) DATE CREATED AUTHOR 05/20/2021 [facility] DATE CREATED AUTHOR AUTHOR'S ORGANIZ ATION 06/07/2021 [facility] DATE CREATED AUTHOR AUTHOR'S ORGANIZ ATION 08/02/2021 [facility] DATE CREATED AUTHOR AUTHOR'S ORGANIZ ATION 12/09/2021 [facility] DATE CREATED AUTHOR AUTHOR'S ORGANIZ ATION 12/29/2021 [facility] DATE CREATED AUTHOR AUTHOR'S ORGANIZ ATION 02/04/[address] [facility] DATE CREATED AUTHOR AUTHOR'S ORGANIZ ATION 03/03/[address] [facility] DATE CREATED AUTHOR AUTHOR'S ORGANIZ ATION 09/15/[address] [facility] DATE CREATED AUTHOR AUTHOR'S ORGANIZ ATION 12/22/2024 [facility] Reason for Visit (unrecogniz ed section and content) Reason Comments Missed Appointment Reason Comments Leg Swelling Blood clots Reason Comments Altered Mental Status Pt presents to ED via [facility] for complaint listed. Pt is from [facility]. Pt's LKW was 1000 hours today. Per EMS, pt had a - [place]. Pt denies CP, SOB, and N/V. Pt seems slow to respond, slightly confused at this time. Reason Comments Osteomyelitis Patient from [facility] facility did xrays on left lower leg and and have concerns for possible osteomyelitis A&Ox2 to self and place, stated year 2022 preside Miss martini Reason Comments Fall Patient had unwitnes sed fall at [facility] landed on butt. Is on thinners, [...] Buck MD [address] [place] [address] Referral ID Status Reason Start Date Expiration Date Visits Re quested Visits Authorized [id number] Closed 08/17/2023 09/16/2023 1 1 Reason Comments [...] Status Dates Carlos NOVAK Attending Provider Active Performance Improvement Analyst Relationship Specialty Start Date End Date Mateus Burris [address] [place] [address] PCP - General Family Practice 11/12/19 Performance Improvement Analyst Relationship Specialty [place] [address] [place] [address] PCP - General Family Medicine 09/09/20 Performance Improvement Analyst Relationship Specialty [place] [address] [place] [address] PCP - General Family Medicine 09/09/20 Performance Improvement Analyst Relationship Specialty [place] [address] [place] [address] PCP - General Family Medicine 09/09/20 Performance Improvement Analyst Relationship Specialty Start Date End Date Carlos Cavazos MD [address] [facility] [address] [place] [address] PCP - General Internal Medicine 02/20/22 Team [...] Monika Staley MD Primary Care Provider Active Performance Improvement Analyst Relationship Specialty Start Date End Date Carlos Cavazos [address] [place] [phone] PCP - General 12/21/21 Rebecca Buck MD [address] [facility] [address] [place] [address] Surgeon Urology 06/25/23 Team Status: Inactive Member [...] NOVAK Attending Provider, Referring Provi lupillo Active Performance Improvement Analyst Relationship Specialty Start Date End Date Carlos Cavazos [address] [place] [phone] PCP - General 12/21/21 Rebecca Buck MD [address] [address] Surgeon Urology 06/25/23 Performance Improvement Analyst Relationship Specialty Start Date End Date Carlos Cavazos [address] [place] [phone] PCP - General 12/21/21 Rebecca Buck MD [address] [address] Surgeon Urology 06/25/23 Performance Improvement Analyst Relationship Specialty Start Date End Date Carols Cavazos [address] [place] [phone] PCP - General 12/21/21 Rebecca Buck MD [address] [address] Surgeon Urology 06/25/23 Performance Improvement Analyst Relationship Specialty Start Date End Date Carlos Cavazos [address] [place] [phone] PCP - General 12/21/21 Rebecca Buck MD [address] [address] Surgeon Urology 06/25/23 Performance Improvement Analyst Relationship Specialty Start Date End Date Carlos Cavazos [address] [place] [phone] PCP - General 12/21/21 Rebecca Buck MD [address] [address] Surgeon Urology 06/25/23 Performance Improvement Analyst Relationship Specialty Start Date End Date Carlos Cavazos [address] [place] [phone] PCP - General 12/21/21 Rebecca Buck MD [address] [address] Surgeon Urology 06/25/23 Team Status: Inactive Member Role Status Dates Dr. Monika Staley MD Primary Care Provider Active Start: March 13, 2024 End: March 13, 2024 [facility] Attending Provider Active Start: March 13, [...] March 17, 2024 End: March 17, 2024 [facility] Attending Provider Active Start: March 17, 2024 End: March 17, 2024 Team Status: Inactive Member Role Status Dates Dr. Monika Staley MD Primary Care Provider Active Start: March 18, 2024 End: March 18, 2024 [facility] Attending Provider Active Start: March 18, [...] March 20, 2024 End: March 20, 2024 [facility] Attending Provider Active Start: March 20, [...] March 27, 2024 End: March 27, 2024 [facility] Attending Provider Active Start: March 27, [...] Active Start: June 19, 2024 Dr. Kvng NOAVK MD Attending Provider Active Start: June 19, [...] Care Provider Active Start: July 07, 2024 [facility] Attending Provider Active Start: July 07, [...] July 17, 2024 End: July 17, 2024 Kaorn NOVAK MD Referring Provider Active Start: July [...] July 25, 2024 End: July 25, 2024 Carols NOVAK Attending Provider Active Sta rt: July [...] Rosanne Hoff RN)1437 (Given - Provider: Rosanne Hoff, RN)2035 (Given - Provider: Katlin Julio RN) 0816 (Given - Provider: Rosanne Hoff, AYUSH)1355 (Given - Provider: Rosanne Hoff RN)1926 (Given [...] Lisa Ashby, AYUSH)214 (Stopped - Provider: Lisa Ashby, AYUSH) 1026 (New Bag - Provider: Fabi Subramanian, [...] Rosanne Hoff RN)2034 (Given - Provider: Katlin Julio, RN) 0816 (Given - Provider: Rosanne Hoff, AYUSH)1927 (Given - Provider: Lisa Ashby, AYUSH) 1027 [...] IntraVENous, EVERY 8 HOURS, First dose on 12/22/22 at 0000, Until Discontinued
Flush line with [...] BE BASED ON THE PRIMARY CLINICAL RECORDS. [facility] [employer] [facility]. provides no warranty or guarantee of the accuracy or completeness of information in this document.
[2024-12-24 09:02] LABS: Hematocrit 39.8 % (40-54); Hemoglobin 12.4 g/dL (13.0-16.5); Mean Corp Hgb Conc 31.2 g/dL (32-36); Mean Corpuscular Volume 85.4 fL (80-94); Mean Platelet Vol. 10.4 fl (6.2-12.0); Platelet Count 290 K/mm3 (150-450); RBC Distribution Width CV 15.4 % (11.6-14.6); RBC Distribution Width SD 48.1 fl (35.1-43.9); Red Blood Count 4.66 M/mm3 (4.6-6.2); White Blood Count 16.6 K/mm3 (4.4-11.0)
[2024-12-24 09:29] LABS: Anion Gap 13 (5-15); BUN 16 mg/dL (4-19); BUN/Creat Ratio 19.2 RATIO (10-20); Calcium,Total 8.8 mg/dL (7.6-11.0); Carbon Dioxide 23.7 mmol/L (21.0-32.0); Chloride 103 mmol/L (98-108); Glucose 88 mg/dL (70-99); Potassium 4.2 mmol/L (3.3-5.1)
== END ==
LOC: OLS.SANC 05:00
PROVIDERS: PCP General Practice; Visit Provider Internal Medicine
DX: N40.0 Benign prostatic hyperplasia without lower urinary tract symptoms (principal); I10 Essential (primary) hypertension
CPT/HCPCS: 36415; 80048; 85027

== ENCOUNTER → 2024-12-25 | Outpatient (REF) | payer MEDICARE, MEDICAID, SELFPAY ==
[2024-12-25 10:00] LABS: Prothrombin Time (Protime)PT. 30.0 SECONDS (11.7-14.9)
== END ==
LOC: OLS.SANC 05:00
PROVIDERS: PCP General Practice
DX: Z79.01 Long term (current) use of 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 (principal)
CPT/HCPCS: 36415; 85610

== ENCOUNTER → 2024-12-26 | Outpatient (REF) | payer MEDICARE, MEDICAID, SELFPAY ==
--- OUTSIDE RECORDS SUMMARY | 2024-12-26 04:56 | XMS RPT_ITS | CCD ---
Author Organization [facility] Care Team Providers Care Boiler Service Technician Name Role Phone Mateus Burris Primary Care [...] Provider Monika Staley MD Primary Care Provider [phone] Monika Staley MD Primary Care Provider Carlos [...] VALLADARES, Dr. Monika Horner Primary Care Provider [facility] Attending Provider [phone] Carlos Nelson Attending Provider Jonh Pascual MD, [...] Referring Provider Unava ilCarlos Anglin Attending Provider Unavailab Nani VALLADARES, Dr. Monika [...] Provider Andressa VALLADARES, Dr. Calderon Attending Provider Jeannieva Carlos Barnes Attending Provider Unavailab ish Staley [...] Luís, Shiela Primary Care Unavailable [facility] [place] Attending Unavai lable Luís, Shiela Primary Care Unavailable Crisostomo OLS, Elizabethet Attending Unavailable Luís, Shiela Primary Care Unavailable Katsaros OLS, Peter Attending Unavailable Luís, Shiela Primary Care Unavailable Crisostomo OLS, Babbalkarolet Attending Unavailable Luís, Shiela Primary Care Unavailable Crisostomo OLS, Babbaljeet Attending Unavailable Luís, Shiela Primary Care Unavailable Crisostomo OLS, Elizabethet Attending Unavailable Luís, Shiela Primary Care Unavailable Katsaros OLS, Peter Attending Unavailable Luís, Shiela Primary Care Unavailable Crisostomo OLS, Kvng Referring Unavailable Crisostomo OLS, Elizabethet Attending Unavailable Luís, Shiela Primary Care Unavailable Katsaros OLS, Peter Attending Unavailable Luís, Shiela Primary Care Unavailable [facility] [place] Attending Unavai lable Luís, Shiela Primary Care [...] Luís, Shiela Primary Care Unavailable [facility] [place] Attending Unavai lable Luís, Shiela Primary Care Unavailable [facility] [place] Attending Unavai lable Luís, Shiela Primary Care Unavailable Katsaros OLS, Peter Attending Unavailable Luís, Shiela Primary Care Unavailable [facility] [place] Attending Unavai lable Luís, Shiela Primary Care Unavailable [place] OLSKaron Attending Unavail able Luís, Shiela Primary Care Unavailable [facility] [place] Attending Unavai lable Luís, Shiela Primary Care Unavailable [facility] [place] Attending Unavai lable Luís, Shiela Primary Care Unavailable [facility] [place] Attending Unavai lable Luís, Shiela Primary Care Unavailable Katsaros OLSCarlos Attending Unavailable Luís, Shiela Primary Care Unavailable [facility] [place] Attending Unavai lable Luís, Shiela Primary Care Unavailable [facility] [place] Attending Unavai lable Luís, Shiela Primary Care Unavailable [place] Carlos NOVAK Attending Unavailable Luís, Shiela Primary Care Unavailable Luís, Shiela Primary Care Unavailable [facility] [place] Attending Unavai lable Luís, Shiela Primary Care Unavailable [facility] [place] Attending Unavai labish CrisostomoKvng Levy Referring Unavailable Crisostomo Kvng NOVAK Attending Unavailable Luís, Shiela Primary Care Unavailable Luís, Shiela Primary Care Unavailable [facility] [place] Attending Unavai cameila CrisostomoKvng Levy Attending Unavailable Luís, Shiela Primary Care Unavailable [facility] [place] Attending Unavai lable Luís, Shiela Primary Care Unavailable [place] Karon NOVAK Attending Unavail able Luís, Shiela Primary Care Unavailable [place] Carlos NOVAK Attending Unavailable Luís, Shiela Primary Care Unavailable [place] Carlos NOVAK Attending Unavailable Luís, Shiela Primary Care Unavailable [place] Karon NOVAK Referring Unavail able [place] Karon NOVAK Attending Unavail able Luís, Shiela Primary Care Unavailable [place] OLSKaron Attending Unavail able Luís, Shiela Primary Care Unavailable Katsaros OLS Peter Attending Unavailable Luís, Shiela Primary Care Unavailable Crisostomo OLSElizabethet Attending Unavailable Luís, Shiela Primary Care Unavailable Crisostomo OLSElizabethet Referring Unavailable Crisostomo OLS, Babbaljeet Attending Unavailable [...] Luís, Shiela Primary Care Unavailable [facility] [place] Attending Unadavidi diannale Luís, Shiela Primary Care Unavailable Crisostomo OLS, [...] Unavail able Luís, Shiela Primary Care Unavailable [facility] [place] Attending Tricia lable Luís, Shiela Primary Care Unavailable Katsaros [...] Facility (13 sources) Morphine Drug All[facility] 5 [facility] Work Phone: (15 sources) Alcohol Propensity to adverse reactions to drug 3 Rash, Hives, Other: See Comments, Other [facility] Work Phone: (1 source) Latex Drug Allergy 0 Rash [facility] (8 sources) Cortisone Drug Allergy 2 [facility] (7 sources) Latex Allergy to substance 0 Rash [facility] Medications Current Medications Medication Drug Class(es) Dates Sig (Normalized) Sig (Original) Acetaminophen (10 sources) Start: 10-21-2021 acetaminophen (TYLENOL) tablet 650 mg Start: 09-14-2021 acetaminophen (TYLENOL) 325 MG tablet 650 mg every 6 hours as needed 0 09/14/2021 Active take [address] [facility] every eight hours acetaminophen (TYLENOL) 325 [...] Start: 11-01-2021 take [address] [facility] once daily tamsulosin (FLOMAX) 0.4 MG [...] on above: Take [address] [facility] three times daily. Complete Multi-Vitamin CHEW [...] Units subcutaneously with meals and at bedtime. Slovak Panax Ginseng 100 MG CAPS (8 sources) Slovak Panax Ginseng 100 MG CAPS Quantity: 0 Refills: 0 Ordered: 06-Nov-2019 DO Active [place] Panax Ginseng 100 MG Oral Capsule (4 sources) Slovak Panax Ginseng 100 MG Oral Capsule Refills: 0 Active [place] Panax Gin mayuri 100 MG Oral Capsule Refills: 0 DO Active [place] Panax Ginseng 100 MG Oral Capsule (2 sources) Slovak Panax Gin mayuri 100 MG Oral Capsule [...] once daily. Pentoxifylline (1 source) Blood Viscosity Luggage Liner PENTOXIFYLLINE ORAL Take by mouth. 0 Active Comment on above: Take by mouth. petrolatum 0.41 mg/mg topical ointment (1 source) Start : 08-20 white petrolatum (AQUAPHOR) 41 % topical ointment Apply to affected area once daily. 0 08/20/2021 Active Comment on above: Apply to affected ar ea once daily. 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] Onset: 10-21-2021 Episodic Other aftercare (1 source) Drug therapy finding; Translations: [halfway (current) use of anticoagulants] Episodic Other circulatory [...] 02-16-2022 Episodic Other aftercare (2 sources) Other termination clerk (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; Translations: [Other alf (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] Onset: 06-02-2024 Episodic Other [...] Test Name Value Interpretation Reference Range Facility Basic Metabolic Profile (BMP )on 12-24-2024 BUN/CRE 19.2 RATIO Normal - [facility] Comment on above: Order Comment: 411-1 Performed By: #### L 500.2500, L100.0500 ####[facility] [address] [place], [address] Calcium [Mass/Vol] 8.8 mg/dL Normal 7.6-11.0 [facility] Comment on above: Order Comment: 411-1 Performed By: #### L 500.2500, L100.0500 ####[facility] [address] [place], [address] Chloride [Moles/Vol] 103 mmol/L Normal 98-108 [facility] Comment on above: Order Comment: 411-1 Performed By: #### L 500.2500, L100.0500 ####[facility] [address] [place], [address] CO2 [Moles/Vol] 23.7 mmol/L Normal 21.0-32.0 [facility] Comment on above: Order Comment: 411-1 Performed By: #### L 500.2500, L100.0500 ####[facility] [address] [place], [address] Creatinine [Mass/Vol] 0.82 mg/dL Normal 0.70-1.20 [facility] Comment on above: Order Comment: 411-1 Performed By: #### L 500.2500, L100.0500 ####[facility] [address] [place], [address] GAP 13 Normal 5-15 [facility] Comment on above: Order Comment: 411-1 Performed By: #### L 500.2500, L100.0500 ####[facility] [address] [place], [address] GFR/1.73 sq M.predicted among non-blacks MDRD (S/P/Bld) [Vol rate/Area] 93 mL/min/{1.73_m2} Normal >60 [facility] Comment on above: Order Comment: 411-1 Result Comment: mL/m in/1.73m2 CKD-EPI Creatinine Equation (2020) Performed By: #### L 500.2500, L100.0500 ####[facility] [address] [place], [address] Glucose [Mass/Vol] 88 mg/dL Normal 70-99 [facility] Comment on above: Order Comment: 411-1 Performed By: #### L 500.2500, L100.0500 ####[facility] [address] [place], [address] Potassium [Moles/Vol] 4.2 mmol/L Normal 3.3-5.1 [facility] Comment on above: Order Comment: 411-1 Performed By: #### L 500.2500, L100.0500 ####[facility] [address] [place], [address] Sodium [Moles/Vol] 139 mmol/L Normal 133-145 [facility] Comment on above: Order Comment: 411-1 Performed By: #### L 500.2500, L100.0500 ####[facility] [address] [place], [address] Urea nitrogen [Mass/Vol] 16 mg/dL Normal 4-19 [facility] Comment on above: Order Comment: 411-1 Performed By: #### L 500.2500, L100.0500 ####[facility] [address] [place], [address] CBC-Complete Blood Cnt No Di ffon 12-24-2024 Erythrocyte distribution width (RBC) [Ratio] 15.4 % High 11.6-14.6 [facility] Comment on above: Order Comment: 411-1 Performed By: #### L 500.2500, L100.0500 ####[facility] [address] [place], [address] Hematocrit (Bld) [Volume fraction] 39.8 % Low 40-54 [facility] Comment on above: Order Comment: 411-1 Performed By: #### L 500.2500, L100.0500 ####[facility] [address] [place], [address] Hemoglobin (Bld) [Mass/Vol] 12.4 g/dL Low 13.0-16.5 [facility] Comment on above: Order Comment: 411-1 Performed By: #### L 500.2500, L100.0500 ####[facility] [address] [place], [address] MCH (RBC) [Entitic mass] 26.6 pg Low 27.0-32.0 [facility] Comment on above: Order Comment: 411-1 Performed By: #### L 500.2500, L100.0500 ####[facility] [address] [place], [address] MCHC (RBC) [Mass/Vol] 31.2 g/dL Low 32-36 [facility] Comment on above: Order Comment: 411-1 Performed By: #### L 500.2500, L100.0500 ####[facility] [address] [place], [address] MCV (RBC) [Entitic vol] 85.4 fL Normal 80-94 [facility] Comment on above: Order Comment: 411-1 Performed By: #### L 500.2500, L100.0500 ####[facility] [address] [place], [address] Platelet mean volume (Bld) [Entitic vol] 10.4 fL Normal 6.2-12.0 [facility] Comment on above: Order Comment: 411-1 Performed By: #### L 500.2500, L100.0500 ####[facility] [address] [place], [address] Platelets (Bld) [#/Vol] 290 10*3/uL Normal 150-450 [facility] Comment on above: Order Comment: 411-1 Performed By: #### L 500.2500, L100.0500 ####[facility] [address] [place], [address] RBC (Bld) [#/Vol] 4.66 10*6/uL Normal 4.6-6.2 [facility] Comment on above: Order Comment: 411-1 Performed By: #### L 500.2500, L100.0500 ####[facility] [address] [place], [address] RDW SD 48.1 fl High 35.1-43.9 [facility] Comment on above: Order Comment: 411-1 Performed By: #### L 500.2500, L100.0500 ####[facility] [address] [place], [address] WBC (Bld) [#/Vol] 16.6 10*3/uL High 4.4-11.0 [facility] Comment on above: Order Comment: 411-1 Performed By: #### L 500.2500, L100.0500 ####[facility] [address] [place], [address] Prothrombin Time w/INRon INR Coag (PPP) [Relative time] 2.6 {INR} Normal [facility] Comment on above: Order Comment: 411.1 Performed By: #### L 300.3900 ####[facility] [address] [place], [address] PT Coag (PPP) [Time] 28.8 s High 11.7-14.9 [facility] Comment on above: Order Comment: 411.1 Performed By: #### L 300.3900 ####[facility] [address] [place], [address] Prothrombin Time w/INRon INR Coag (PPP) [Relative time] 2.4 {INR} Normal [facility] Comment on above: Order Comment: 411.1 Performed By: #### L 300.3900 ####[facility] [address] [place], [address] PT Coag (PPP) [Time] 26.7 s High 11.7-14.9 [facility] Comment on above: Order Comment: 411.1 Performed By: #### L 300.3900 ####[facility] [address] [place], [address] Prothrombin Time w/INRon INR Coag (PPP) [Relative time] 2.3 {INR} Normal [facility] Comment on above: Order Comment: 411.1 Performed By: #### L 300.3900 ####[facility] [address] [place], [address] PT Coag (PPP) [Time] 25.7 s High 11.7-14.9 [facility] Comment on above: Order Comment: 411.1 Performed By: #### L 300.3900 ####[facility] [address] [place], [address] Prothrombin Time w/INRon INR Coag (PPP) [Relative time] 2.2 {INR} Normal [facility] Comment on above: Order Comment: 411-1 Performed By: #### L 300.3900 ####[facility] [address] [place], [address] PT Coag (PPP) [Time] 24.7 s High 11.7-14.9 [facility] Comment on above: Order Comment: 411-1 Performed By: #### L 300.3900 ####[facility] [address] [place], [address] Prothrombin Time w/INRon INR Coag (PPP) [Relative time] 2.2 {INR} Normal [facility] Comment on above: Order Comment: 411.1 Performed By: #### L 300.3900 ####[facility] [address] [place], [address] PT Coag (PPP) [Time] 25.0 s High 11.7-14.9 [facility] Comment on above: Order Comment: 411.1 Performed By: #### L 300.3900 ####[facility] [address] [place], [address] Prothrombin Time w/INRon INR Coag (PPP) [Relative time] 2.3 {INR} Normal [facility] Comment on above: Order Comment: 411.1 Performed By: #### L 300.3900 ####[facility] [address] [place], [address] PT Coag (PPP) [Time] 25.9 s High 11.7-14.9 [facility] Comment on above: Order Comment: 411.1 Performed By: #### L 300.3900 ####[facility] [address] [place], [address] Prothrombin Time w/INRon INR Coag (PPP) [Relative time] 2.5 {INR} Normal [facility] Comment on above: Order Comment: 411.1 Performed By: #### L 300.3900 ####[facility] [address] [place], [address] PT Coag (PPP) [Time] 27.3 s High 11.7-14.9 [facility] Comment on above: Order Comment: 411.1 Performed By: #### L 300.3900 ####[facility] [address] [place], [address] Prothrombin Time w/INRon INR Coag (PPP) [Relative time] 2.3 {INR} Normal [facility] Comment on above: Order Comment: 411-1 Performed By: #### L 300.3900 ####[facility] [address] [place], [address] PT Coag (PPP) [Time] 26.0 s High 11.7-14.9 [facility] Comment on above: Order Comment: 411-1 Performed By: #### L 300.3900 ####[facility] [address] [place], [address] Prothrombin Time w/INRon INR Coag (PPP) [Relative time] 3.1 {INR} Normal [facility] Comment on above: Order Comment: 411-1 Performed By: #### L 300.3900 ####[facility] [address] [place], [address] PT Coag (PPP) [Time] 32.8 s High 11.7-14.9 [facility] Comment on above: Order Comment: 411-1 Performed By: #### L 300.3900 ####[facility] [address] [place], [address] Prothrombin Time w/INRon INR Coag (PPP) [Relative time] 3.3 {INR} Normal [facility] Comment on above: Order Comment: 411.1 Performed By: #### L 300.3900 ####[facility] [address] [place], [address] PT Coag (PPP) [Time] 34.3 s High 11.7-14.9 [facility] Comment on above: Order Comment: 411.1 Performed By: #### L 300.3900 ####[facility] [address] [place], [address] Prothrombin Time w/INRon INR Coag (PPP) [Relative time] 2.8 {INR} Normal [facility] Comment on above: Order Comment: 411.2 Performed By: #### L 300.3900 ####[facility] [address] [place], [address] PT Coag (PPP) [Time] 30.0 s High 11.7-14.9 [facility] Comment on above: Order Comment: 411.2 Performed By: #### L 300.3900 ####[facility] [address] [place], [address] Prothrombin Time w/INRon INR Coag (PPP) [Relative time] 3.0 {INR} Normal [facility] Comment on above: Order Comment: 411.2 Performed By: #### L 300.3900 ####[facility] [address] [place], [address] PT Coag (PPP) [Time] 32.0 s High 11.7-14.9 [facility] Comment on above: Order Comment: 411.2 Performed By: #### L 300.3900 ####[facility] [address] [place], [address] Prothrombin Time w/INRon INR Coag (PPP) [Relative time] 2.9 {INR} Normal [facility] Comment on above: Order Comment: 411.2 Performed By: #### L 300.3900 ####[facility] [address] [place], [address] PT Coag (PPP) [Time] 30.7 s High 11.7-14.9 [facility] Comment on above: Order Comment: 411.2 Performed By: #### L 300.3900 ####[facility] [address] [place], [address] Prothrombin Time w/INRon INR Coag (PPP) [Relative time] 2.2 {INR} Normal [facility] Comment on above: Order Comment: 411.2 Performed By: #### L 300.3900 ####[facility] [address] [place], [address] PT Coag (PPP) [Time] 24.7 s High 11.7-14.9 [facility] Comment on above: Order Comment: 411.2 Performed By: #### L 300.3900 ####[facility] [address] [place], [address] Prothrombin Time w/INRon INR Coag (PPP) [Relative time] 2.6 {INR} Normal [facility] Comment on above: Order Comment: 411.2 Performed By: #### L 300.3900 ####[facility] [address] [place], [address] PT Coag (PPP) [Time] 28.7 s High 11.7-14.9 [facility] Comment on above: Order Comment: 411.2 Performed By: #### L 300.3900 ####[facility] [address] [place], [address] Prothrombin Time w/INRon INR Coag (PPP) [Relative time] 3.1 {INR} Normal [facility] Comment on above: Order Comment: 411.2 Performed By: #### L 300.3900 ####[facility] [address] [place], [address] PT Coag (PPP) [Time] 33.0 s High 11.7-14.9 [facility] Comment on above: Order Comment: 411.2 Performed By: #### L 300.3900 ####[facility] [address] [place], [address] Prothrombin Time w/INRon INR Coag (PPP) [Relative time] 3.0 {INR} Normal [facility] Comment on above: Order Comment: 411-2 Performed By: #### L 300.3900 ####[facility] [address] [place], [address] PT Coag (PPP) [Time] 31.4 s High 11.7-14.9 [facility] Comment on above: Order Comment: 411-2 Performed By: #### L 300.3900 ####[facility] [address] [place], [place], [address] International normalized rat io (INR) calculationOrdered By: Karon Corrales on 10-30-2024 INR Coag (Bld) [Relative time] 2.4 {INR} [facility] Prothrombin Time w/INRon INR Coag (PPP) [Relative time] 2.4 {INR} Normal [facility] Comment on above: Performed By: #### L 300.3900 ####[facility] [address] [place], [place], [id number] PT Coag (PPP) [Time] 26.3 s High 11.7-14.9 [facility] Comment on above: Performed By: #### L 300.3900 ####[facility] [address] [place], [place], [phone] Prothrombin timeOrdered By: Karon Corrales on 10-30-2024 PT Coag (PPP) [Time] 26.3 s High 11.7-14.9 [facility] International normalized rat io (INR) calculationOrdered By: Karon Corrales on 10-27-2024 INR Coag (Bld) [Relative time] 2.2 {INR} [facility] Prothrombin Time w/INRon INR Coag (PPP) [Relative time] 2.2 {INR} Normal [facility] Comment on above: Order Comment: 411.2 Performed By: #### L 300.3900 ####[facility] [address] [place], [place], [phone] Prothrombin timeOrdered By: Karon Corrales on 10-27-2024 PT Coag (PPP) [Time] 24.5 s High 11.7-14.9 [facility] Comment on above: Order Comment: 411.2 Performed By: #### L 300.3900 ####[facility] [address] [place], [place], [phone](470) International normalized rat io (INR) calculationOrdered By: Karon Corrales on 10-23-2024 INR Coag (Bld) [Relative time] 2.5 {INR} [facility] Prothrombin Time w/INRon INR Coag (PPP) [Relative time] 2.5 {INR} Normal [facility] Comment on above: Order Comment: 411.2 Performed By: #### L 300.3900 ####[facility] [address] [place], [place], [phone](217) PT Coag (PPP) [Time] 27.9 s High 11.7-14.9 [facility] Comment on above: Order Comment: 411.2 Performed By: #### L 300.3900 ####[facility] [address] [place], [place], [phone]) Prothrombin timeOrdered By: Karon Corrales on 10-23-2024 PT Coag (PPP) [Time] 27.9 s High 11.7-14.9 [facility] International normalized rat io (INR) calculationOrdered By: Karon Corrales on 10-20-2024 INR Coag (Bld) [Relative time] 3.1 {INR} [facility] Prothrombin Time w/INRon INR Coag (PPP) [Relative time] 3.1 {INR} Normal [facility] Comment on above: Order Comment: 411.2 Performed By: #### L 300.3900 ####[facility] [address] [place], [place], [phone] PT Coag (PPP) [Time] 32.8 s High 11.7-14.9 [facility] Comment on above: Order Comment: 411.2 Performed By: #### L 300.3900 ####[facility] [address] [place], [place], [phone]23) Prothrombin timeOrdered By: Karon Corrales on 10-20-2024 PT Coag (PPP) [Time] 32.8 s High 11.7-14.9 [facility] International normalized rat io (INR) calculationOrdered By: Karon Corrales on 10-16-2024 INR Coag (Bld) [Relative time] 2.8 {INR} [facility] Prothrombin Time w/INRon INR Coag (PPP) [Relative time] 2.8 {INR} Normal [facility] Comment on above: Order Comment: 411.2 Performed By: #### L 300.3900 ####[facility] [address] [place], [address] PT Coag (PPP) [Time] 30.4 s High 11.7-14.9 [facility] Comment on above: Order Comment: 411.2 Performed By: #### L 300.3900 ####[facility] [address] [place], [address] Prothrombin timeOrdered By: Karon Corrales on 10-16-2024 PT Coag (PPP) [Time] 30.4 s High 11.7-14.9 [facility] International normalized rat io (INR) calculationOrdered By: Carlos Cavazos on 10-13-2024 INR Coag (Bld) [Relative time] 1.9 {INR} [facility] Prothrombin Time w/INRon INR Coag (PPP) [Relative time] 1.9 {INR} Normal [facility] Comment on above: Order Comment: 411-2 Performed By: #### L 300.3900 ####[facility] [address] [place], [address] PT Coag (PPP) [Time] 22.4 s High 11.7-14.9 [facility] Comment on above: Order Comment: 411-2 Performed By: #### L 300.3900 ####[facility] [address] [place], [address] Prothrombin timeOrdered By: Carlos Cavazos on 10-13-2024 PT Coag (PPP) [Time] 22.4 s High 11.7-14.9 [facility] International normalized rat io (INR) calculationOrdered By: Karon Corrales on 10-09-2024 INR Coag (Bld) [Relative time] 3.0 {INR} [facility] Prothrombin Time w/INRon INR Coag (PPP) [Relative time] 3.0 {INR} Normal [facility] Comment on above: Order Comment: 411.2 Performed By: #### L 300.3900 ####[facility] [address] [place], [place], [phone] Prothrombin timeOrdered By: Karon Corrales on 10-09-2024 PT Coag (PPP) [Time] 31.8 s High 11.7-14.9 [facility] Comment on above: Order Comment: 411.2 Performed By: #### L 300.3900 ####[facility] [address] [place], [place], [phone] International normalized rat io (INR) calculationOrdered By: Carlos Cavazos on 10-06-2024 INR Coag (Bld) [Relative time] 2.7 {INR} [facility] Prothrombin Time w/INRon INR Coag (PPP) [Relative time] 2.7 {INR} Normal [facility] Comment on above: Order Comment: 411-2 Performed By: #### L 300.3900 ####[facility] [address] [place], [place], [phone] PT Coag (PPP) [Time] 29.6 s High 11.7-14.9 [facility] Comment on above: Order Comment: 411-2 Performed By: #### L 300.3900 ####[facility] [address] [place], [place], [phone] Prothrombin timeOrdered By: Carlos Cavazos on 10-06-2024 PT Coag (PPP) [Time] 29.6 s High 11.7-14.9 [facility] International normalized rat io (INR) calculationOrdered By: Karon Corrales on 10-02-2024 INR Coag (Bld) [Relative time] 2.3 {INR} [facility] Prothrombin Time w/INRon INR Coag (PPP) [Relative time] 2.3 {INR} Normal [facility] Comment on above: Order Comment: 411.2 Performed By: #### L 300.3900 ####[facility] [address] [place], [address] PT Coag (PPP) [Time] 26.0 s High 11.7-14.9 [facility] Comment on above: Order Comment: 411.2 Performed By: #### L 300.3900 ####[facility] [address] [place], [address] Prothrombin timeOrdered By: Karon Corrales on 10-02-2024 PT Coag (PPP) [Time] 26.0 s High 11.7-14.9 [facility] International normalized rat io (INR) calculationOrdered By: Karon Corrales on 09-30-2024 INR Coag (Bld) [Relative time] 3.1 {INR} [facility] Prothrombin Time w/INRon INR Coag (PPP) [Relative time] 3.1 {INR} Normal [facility] Comment on above: Order Comment: 411.2 Performed By: #### L 300.3900 ####[facility] [address] [place], [address] PT Coag (PPP) [Time] 32.6 s High 11.7-14.9 [facility] Comment on above: Order Comment: 411.2 Performed By: #### L 300.3900 ####[facility] [address] [place], [address] Prothrombin timeOrdered By: Karon Corrlaes on 09-30-2024 PT Coag (PPP) [Time] 32.6 s High 11.7-14.9 [facility] International normalized rat io (INR) calculationOrdered By: Karon Corrales on 09-25-2024 INR Coag (Bld) [Relative time] 2.4 {INR} [facility] Prothrombin Time w/INRon INR Coag (PPP) [Relative time] 2.4 {INR} Normal [facility] Comment on above: Order Comment: 411.2 Performed By: #### L 300.3900 ####[facility] [address] [facility] [address] Prothrombin timeOrdered By: Karon Corrales on 09-25-2024 PT Coag (PPP) [Time] 26.7 s High 11.7-14.9 [facility] Comment on above: Order Comment: 411.2 Performed By: #### L 300.3900 ####[facility] [address] [place], [place], [address] International normalized rat io (INR) calculationOrdered By: Karon Corrales on 09-22-2024 INR Coag (Bld) [Relative time] 2.5 {INR} [facility] Prothrombin Time w/INRon INR Coag (PPP) [Relative time] 2.5 {INR} Normal [facility] Comment on above: Order Comment: 411.2 Performed By: #### L 300.3900 ####[facility] [address] [facility] [address] Prothrombin timeOrdered By: Karon Corrales on 09-22-2024 PT Coag (PPP) [Time] 27.4 s High 11.7-14.9 [facility] Comment on above: Order Comment: 411.2 Performed By: #### L 300.3900 ####[facility] [address] [facility] [phone] International normalized rat io (INR) calculationOrdered By: Karon Corrales on 09-18-2024 INR Coag (Bld) [Relative time] 2.2 {INR} [facility] Prothrombin Time w/INRon INR Coag (PPP) [Relative time] 2.2 {INR} Normal [facility] Comment on above: Order Comment: 411.2 Performed By: #### L 300.3900 ####[facility] [address] [place], [place], [phone] PT Coag (PPP) [Time] 25.1 s High 11.7-14.9 [facility] Comment on above: Order Comment: 411.2 Performed By: #### L 300.3900 ####[facility] [address] [place], [address] Prothrombin timeOrdered By: Karon Corrales on 09-18-2024 PT Coag (PPP) [Time] 25.1 s High 11.7-14.9 [facility] International normalized rat io (INR) calculationOrdered By: Carlos Cavazos on 09-15-2024 INR Coag (Bld) [Relative time] 2.4 {INR} [facility] Prothrombin Time w/INRon INR Coag (PPP) [Relative time] 2.4 {INR} Normal [facility] Comment on above: Order Comment: 411-2 Performed By: #### L 300.3900 ####[facility] [address] [place], [place], [phone] Prothrombin timeOrdered By: Carlos Cavazos on 09-15-2024 PT Coag (PPP) [Time] 26.3 s High 11.7-14.9 [facility] Comment on above: Order Comment: 411-2 Performed By: #### L 300.3900 ####[facility] [address] [place], [address] International normalized rat io (INR) calculationOrdered By: Karon Corrales on 09-11-2024 INR Coag (Bld) [Relative time] 2.0 {INR} [facility] Prothrombin Time w/INRon INR Coag (PPP) [Relative time] 2.0 {INR} Normal [facility] Comment on above: Order Comment: 411.2 Performed By: #### L 300.3900 ####[facility] [address] [place], [address] PT Coag (PPP) [Time] 22.9 s High 11.7-14.9 [facility] Comment on above: Order Comment: 411.2 Performed By: #### L 300.3900 ####[facility] [address] [place], [place], [phone] Prothrombin timeOrdered By: Karon Corrales on 09-11-2024 PT Coag (PPP) [Time] 22.9 s High 11.7-14.9 [facility] International normalized rat io (INR) calculationOrdered By: Karon Corrales on 09-08-2024 INR Coag (Bld) [Relative time] 2.0 {INR} [facility] Prothrombin Time w/INRon INR Coag (PPP) [Relative time] 2.0 {INR} Normal [facility] Comment on above: Order Comment: 411.2 Performed By: #### L 300.3900 ####[facility] [address] [place], [address] PT Coag (PPP) [Time] 22.8 s High 11.7-14.9 [facility] Comment on above: Order Comment: 411.2 Performed By: #### L 300.3900 ####[facility] [address] [place], [place], [phone] Prothrombin timeOrdered By: Karon Corrales on 09-08-2024 PT Coag (PPP) [Time] 22.8 s High 11.7-14.9 [facility] International normalized rat io (INR) calculationOrdered By: Carlos Cavazos on 09-04-2024 INR Coag (Bld) [Relative time] 1.7 {INR} [facility] Prothrombin Time w/INRon INR Coag (PPP) [Relative time] 1.7 {INR} Normal [facility] Comment on above: Order Comment: 411-2 Performed By: #### L 300.3900 ####[facility] [address] [place], [place], [phone] PT Coag (PPP) [Time] 20.8 s High 11.7-14.9 [facility] Comment on above: Order Comment: 411-2 Performed By: #### L 300.3900 ####[facility] [address] [place], [place], [phone] Prothrombin timeOrdered By: Carlos Cavazos on 09-04-2024 PT Coag (PPP) [Time] 20.8 s High 11.7-14.9 [facility] International normalized rat io (INR) calculationOrdered By: Carlos Cavazos on 09-01-2024 INR Coag (Bld) [Relative time] 2.9 {INR} [facility] Prothrombin Time w/INRon INR Coag (PPP) [Relative time] 2.9 {INR} Normal [facility] Comment on above: Order Comment: 411-2 Performed By: #### L 300.3900 ####[facility] [address] [place], [place], [phone]) PT Coag (PPP) [Time] 30.7 s High 11.7-14.9 [facility] Comment on above: Order Comment: 411-2 Performed By: #### L 300.3900 ####[facility] [address] [place], [place], [phone](824) Prothrombin timeOrdered By: Carlos Cavazos on 09-01-2024 PT Coag (PPP) [Time] 30.7 s High 11.7-14.9 [facility] International normalized rat io (INR) calculationOrdered By: Carlos Cvaazos on 08-28-2024 INR Coag (Bld) [Relative time] 2.4 {INR} [facility] Prothrombin Time w/INRon INR Coag (PPP) [Relative time] 2.4 {INR} Normal [facility] Comment on above: Order Comment: 411-2 Performed By: #### L 300.3900 ####[facility] [address] [place], [phone] Prothrombin timeOrdered By: Carlos Cavazos on 08-28-2024 PT Coag (PPP) [Time] 26.7 s High 11.7-14.9 [facility] Comment on above: Order Comment: 411-2 Performed By: #### L 300.3900 ####[facility] [address] [place], [address]([phone]) International normalized rat io (INR) calculationOrdered By: Karon Corrales on 08-25-2024 INR Coag (Bld) [Relative time] 1.8 {INR} [facility] Prothrombin Time w/INRon INR Coag (PPP) [Relative time] 1.8 {INR} Normal [facility] Comment on above: Order Comment: 411.2 Performed By: #### L 300.3900 ####[facility] [address] [place], [phone]) PT Coag (PPP) [Time] 21.6 s High 11.7-14.9 [facility] Comment on above: Order Comment: 411.2 Performed By: #### L 300.3900 ####[facility] [address] [place], [phone] Prothrombin timeOrdered By: Karon Corrales on 08-25-2024 PT Coag (PPP) [Time] 21.6 s High 11.7-14.9 [facility] International normalized rat io (INR) calculationOrdered By: Karon Corrales on 08-21-2024 INR Coag (Bld) [Relative time] 1.7 {INR} [facility] PSA, total screeningOrdered By: Karon Corrales on 08-21-2024 Prostate Specific Antigen Screen 0.52 ng/mL 0.02-4.00 [facility] Comment on above: This test was perfor med using the [employer] tPSA method. Measured values of a patient sample can vary depending on the testing procedure used. PSA values determined on patient samples by different testing procedures cannot be used interchangeably. If there is a change in PSA assays while monitoring therapy, sequential testing should be performed to confirm baseline values. PSA,Total - Annual Screenon 08-21-2024 PSA,TOT SCREEN 0.52 ng/mL Normal 0.02-4.00 [facility] Comment on above: Order Comment: 411.2 [...] values. Performed By: #### L 501.9910, L300.3900 ####[facility] [address] [place], [place], [phone] Prothrombin Time w/INRon INR Coag (PPP) [Relative time] 1.7 {INR} Normal [facility] Comment on above: Order Comment: 411.2 Performed By: #### L 501.9910, L300.3900 ####[facility] [address] [place], [address] Prothrombin timeOrdered By: Karon Corrales on 08-21-2024 PT Coag (PPP) [Time] 20.1 s High 11.7-14.9 [facility] Comment on above: Order Comment: 411.2 Performed By: #### L 501.9910, L300.3900 ####[facility] [address] [place], [place], [phone]([phone] International normalized rat io (INR) calculationOrdered By: Karon Corrales on 08-18-2024 INR Coag (Bld) [Relative time] 3.0 {INR} [facility] Prothrombin Time w/INRon INR Coag (PPP) [Relative time] 3.0 {INR} Normal [facility] Comment on above: Order Comment: 411.2 Performed By: #### L 300.3900 ####[facility] [address] [place], [place], [phone] PT Coag (PPP) [Time] 31.4 s High 11.7-14.9 [facility] Comment on above: Order Comment: 411.2 Performed By: #### L 300.3900 ####[facility] [address] [place], [place], [phone] Prothrombin timeOrdered By: Karon Corrales on 08-18-2024 PT Coag (PPP) [Time] 31.4 s High 11.7-14.9 [facility] International normalized rat io (INR) calculationOrdered By: Karon Corrales on 08-14-2024 INR Coag (Bld) [Relative time] 2.4 {INR} [facility] Prothrombin Time w/INRon INR Coag (PPP) [Relative time] 2.4 {INR} Normal [facility] Comment on above: Order Comment: 411.2 Performed By: #### L 300.3900 ####[facility] [address] [place], [address] PT Coag (PPP) [Time] 26.6 s High 11.7-14.9 [facility] Comment on above: Order Comment: 411.2 Performed By: #### L 300.3900 ####[facility] [address] [place], [place], [phone] Prothrombin timeOrdered By: Karon Corrales on 08-14-2024 PT Coag (PPP) [Time] 26.6 s High 11.7-14.9 [facility] International normalized rat io (INR) calculationOrdered By: Karon Corrales on 08-11-2024 INR Coag (Bld) [Relative time] 3.1 {INR} [facility] Prothrombin Time w/INRon INR Coag (PPP) [Relative time] 3.1 {INR} Normal [facility] Comment on above: Order Comment: 411.2 Performed By: #### L 300.3900 ####[facility] [address] [place], [place], [phone] PT Coag (PPP) [Time] 32.4 s High 11.7-14.9 [facility] Comment on above: Order Comment: 411.2 Performed By: #### L 300.3900 ####[facility] [address] [place], [place], [phone] Prothrombin timeOrdered By: Karon Corrales on 08-11-2024 PT Coag (PPP) [Time] 32.4 s High 11.7-14.9 [facility] International normalized rat io (INR) calculationOrdered By: Carlos Cavazos on 08-07-2024 INR Coag (Bld) [Relative time] 2.8 {INR} [facility] Prothrombin Time w/INRon INR Coag (PPP) [Relative time] 2.8 {INR} Normal [facility] Comment on above: Order Comment: 411-2 Performed By: #### L 300.3900 ####[facility] [address] [place], [address] PT Coag (PPP) [Time] 30.3 s High 11.7-14.9 [facility] Comment on above: Order Comment: 411-2 Performed By: #### L 300.3900 ####[facility] [address] [place], [place], [phone] Prothrombin timeOrdered By: Carlos Cavazos on 08-07-2024 PT Coag (PPP) [Time] 30.3 s High 11.7-14.9 [facility] International normalized rat io (INR) calculationOrdered By: Carlos Cavazos on 08-04-2024 INR Coag (Bld) [Relative time] 1.9 {INR} [facility] Prothrombin Time w/INRon INR Coag (PPP) [Relative time] 1.9 {INR} Normal [facility] Comment on above: Order Comment: 411-2 Performed By: #### L 300.3900 ####[facility] [address] [place], [address] PT Coag (PPP) [Time] 22.1 s High 11.7-14.9 [facility] Comment on above: Order Comment: 411-2 Performed By: #### L 300.3900 ####[facility] [address] [place], [address] Prothrombin timeOrdered By: Carlos Cavazos on 08-04-2024 PT Coag (PPP) [Time] 22.1 s High 11.7-14.9 [facility] International normalized rat io (INR) calculationOrdered By: Karon Corrales on 07-31-2024 INR Coag (Bld) [Relative time] 3.2 {INR} [facility] Prothrombin Time w/INRon INR Coag (PPP) [Relative time] 3.2 {INR} Normal [facility] Comment on above: Order Comment: 411.2 Performed By: #### L 300.3900 ####[facility] [address] [place], [address] PT Coag (PPP) [Time] 33.5 s High 11.7-14.9 [facility] Comment on above: Order Comment: 411.2 Performed By: #### L 300.3900 ####[facility] [address] [place], [place], [phone] Prothrombin timeOrdered By: Karon Corrales on 07-31-2024 PT Coag (PPP) [Time] 33.5 s High 11.7-14.9 [facility] International normalized rat io (INR) calculationOrdered By: Karon Corrales on 07-28-2024 INR Coag (Bld) [Relative time] 2.7 {INR} [facility] Prothrombin Time w/INRon INR Coag (PPP) [Relative time] 2.7 {INR} Normal [facility] Comment on above: Order Comment: 411.2 Performed By: #### L 300.3900 ####[facility] [address] [place], [place], [phone] PT Coag (PPP) [Time] 29.6 s High 11.7-14.9 [facility] Comment on above: Order Comment: 411.2 Performed By: #### L 300.3900 ####[facility] [address] [place], [place], [phone] Prothrombin timeOrdered By: Karon Corrales on 07-28-2024 PT Coag (PPP) [Time] 29.6 s High 11.7-14.9 [facility] International normalized rat io (INR) calculationOrdered By: Carlos Cavazos on 07-25-2024 INR Coag (Bld) [Relative time] 3.0 {INR} [facility] Prothrombin Time w/INRon INR Coag (PPP) [Relative time] 3.0 {INR} Normal [facility] Comment on above: Order Comment: 411-2 Performed By: #### L 300.3900 ####[facility] [address] [place], [place], [phone] Prothrombin timeOrdered By: Carlos Cavazos on 07-25-2024 PT Coag (PPP) [Time] 32.1 s High 11.7-14.9 [facility] Comment on above: Order Comment: 411-2 Performed By: #### L 300.3900 ####[facility] [address] [place], [place], [phone] International normalized rat io (INR) calculationOrdered By: Karon Corrales on 07-24-2024 INR Coag (Bld) [Relative time] 3.4 {INR} [facility] Prothrombin Time w/INRon INR Coag (PPP) [Relative time] 3.4 {INR} Normal [facility] Comment on above: Order Comment: 411.2 Performed By: #### L 300.3900 ####[facility] [address] [place], [place], [phone] Prothrombin timeOrdered By: Karon Corrales on 07-24-2024 PT Coag (PPP) [Time] 35.4 s High 11.7-14.9 [facility] Comment on above: Order Comment: 411.2 Performed By: #### L 300.3900 ####[facility] [address] [place], [place], [phone] International normalized rat io (INR) calculationOrdered By: Karon Corrales on 07-21-2024 INR Coag (Bld) [Relative time] 1.6 {INR} [facility] Prothrombin Time w/INRon INR Coag (PPP) [Relative time] 1.6 {INR} Normal [facility] Comment on above: Order Comment: 411.2 Performed By: #### L 300.3900 ####[facility] [address] [place], [place], [phone] PT Coag (PPP) [Time] 19.6 s High 11.7-14.9 [facility] Comment on above: Order Comment: 411.2 Performed By: #### L 300.3900 ####[facility] [address] [place], [place], [address] Prothrombin timeOrdered By: Karon Corrales on 07-21-2024 PT Coag (PPP) [Time] 19.6 s High 11.7-14.9 [facility] International normalized rat io (INR) calculationOrdered By: Karon Corrales on 07-17-2024 INR Coag (Bld) [Relative time] 2.9 {INR} [facility] Prothrombin Time w/INRon INR Coag (PPP) [Relative time] 2.9 {INR} Normal [facility] Comment on above: Order Comment: 411.2 Performed By: #### L 300.3900 ####[facility] [address] [place], [place], [phone] PT Coag (PPP) [Time] 31.1 s High 11.7-14.9 [facility] Comment on above: Order Comment: 411.2 Performed By: #### L 300.3900 ####[facility] [address] [place], [place], [phone] Prothrombin timeOrdered By: Karon Corrales on 07-17-2024 PT Coag (PPP) [Time] 31.1 s High 11.7-14.9 [facility] International normalized rat io (INR) calculationOrdered By: Carlos Cavazos on 07-14-2024 INR Coag (Bld) [Relative time] 2.5 {INR} [facility] Prothrombin Time w/INRon INR Coag (PPP) [Relative time] 2.5 {INR} Normal [facility] Comment on above: Order Comment: 411-2 Performed By: #### L 300.3900 ####[facility] [address] [place], [place], [phone] PT Coag (PPP) [Time] 27.5 s High 11.7-14.9 [facility] Comment on above: Order Comment: 411-2 Performed By: #### L 300.3900 ####[facility] [address] [place], [address] Prothrombin timeOrdered By: Carlos Cavazos on 07-14-2024 PT Coag (PPP) [Time] 27.5 s High 11.7-14.9 [facility] International normalized rat io (INR) calculationOrdered By: Carlos Cavazos on 07-11-2024 INR Coag (Bld) [Relative time] 2.5 {INR} [facility] Prothrombin Time w/INRon INR Coag (PPP) [Relative time] 2.5 {INR} Normal [facility] Comment on above: Performed By: #### L 300.3900 ####[facility] [address] [place], [address] PT Coag (PPP) [Time] 27.7 s High 11.7-14.9 [facility] Comment on above: Performed By: #### L 300.3900 ####[facility] [address] [place], [address] Prothrombin timeOrdered By: Carlos Cavazos on 07-11-2024 PT Coag (PPP) [Time] 27.7 s High 11.7-14.9 [facility] Prothrombin Time w/INRon INR Normal [facility] Comment on above: Order Comment: 411.2 Result Comment: QNS TUBE NOT FILLED Performed By: #### L 300.3900 ####[facility] [address] [place], [address] PROTIME Normal 11.7-14.9 [facility] Comment on above: Order Comment: 411.2 Result Comment: QNS TUBE NOT FILLED Performed By: #### L 300.3900 ####[facility] [address] [place], [address] International normalized rat io (INR) calculationOrdered By: Kvng Crisostomo on 07-07-2024 INR Coag (Bld) [Relative time] 2.5 {INR} [facility] Prothrombin Time w/INRon INR Coag (PPP) [Relative time] 2.5 {INR} Normal [facility] Comment on above: Order Comment: 411.2 Performed By: #### L 300.3900 ####[facility] [address] [place], [place], [phone]) PT Coag (PPP) [Time] 27.2 s High 11.7-14.9 [facility] Comment on above: Order Comment: 411.2 Performed By: #### L 300.3900 ####[facility] [address] [place], [place], [phone](009) Prothrombin timeOrdered By: Kvng Crisostomo on 07-07-2024 PT Coag (PPP) [Time] 27.2 s High 11.7-14.9 [facility] International normalized rat io (INR) calculationOrdered By: Kvng Crisostomo on 07-03-2024 INR Coag (Bld) [Relative time] 2.5 {INR} [facility] Prothrombin Time w/INRon INR Coag (PPP) [Relative time] 2.5 {INR} Normal [facility] Comment on above: Order Comment: 411.2 Performed By: #### L 300.3900 ####[facility] [address] [place], [place], [phone] PT Coag (PPP) [Time] 27.2 s High 11.7-14.9 [facility] Comment on above: Order Comment: 411.2 Performed By: #### L 300.3900 ####[facility] [address] [place], [place], [phone] Prothrombin timeOrdered By: Kvng Crisostomo on 07-03-2024 PT Coag (PPP) [Time] 27.2 s High 11.7-14.9 [facility] International normalized rat io (INR) calculationOrdered By: Kvng Crisostomo on 06-30-2024 INR Coag (Bld) [Relative time] 2.4 {INR} [facility] Prothrombin Time w/INRon INR Coag (PPP) [Relative time] 2.4 {INR} Normal [facility] Comment on above: Order Comment: 411.2 Performed By: #### L 300.3900 ####[facility] [address], [address] PT Coag (PPP) [Time] 26.8 s High 11.7-14.9 [facility] Comment on above: Order Comment: 411.2 Performed By: #### L 300.3900 ####[facility] [address], [address] Prothrombin timeOrdered By: Kvng Crisostomo on 06-30-2024 PT Coag (PPP) [Time] 26.8 s High 11.7-14.9 [facility] International normalized rat io (INR) calculationOrdered By: Elizabethet Andressa on 06-26-2024 INR Coag (Bld) [Relative time] 2.5 {INR} [facility] Prothrombin Time w/INRon INR Coag (PPP) [Relative time] 2.5 {INR} Normal [facility] Comment on above: Order Comment: 411.2 Performed By: #### L 300.3900 ####[facility] [address], [address] PT Coag (PPP) [Time] 27.5 s High 11.7-14.9 [facility] Comment on above: Order Comment: 411.2 Performed By: #### L 300.3900 ####[facility] [address] [place], [address] Prothrombin timeOrdered By: Kvng Crisostomo on 06-26-2024 PT Coag (PPP) [Time] 27.5 s High 11.7-14.9 [facility] International normalized rat io (INR) calculationOrdered By: Carlos Cavazos on 06-23-2024 INR Coag (Bld) [Relative time] 2.8 {INR} [facility] Prothrombin Time w/INRon INR Coag (PPP) [Relative time] 2.8 {INR} Normal [facility] Comment on above: Order Comment: 411-2 Performed By: #### L 300.3900 ####[facility] [address] [facility] [address] PT Coag (PPP) [Time] 29.7 s High 11.7-14.9 [facility] Comment on above: Order Comment: 411-2 Performed By: #### L 300.3900 ####[facility] [address] [facility] [address] Prothrombin timeOrdered By: Carlos Cavazos on 06-23-2024 PT Coag (PPP) [Time] 29.7 s High 11.7-14.9 [facility] International normalized rat io (INR) calculationOrdered By: Kvng Crisostomo on 06-19-2024 INR Coag (Bld) [Relative time] 2.6 {INR} [facility] Prothrombin Time w/INRon INR Coag (PPP) [Relative time] 2.6 {INR} Normal [facility] Comment on above: Order Comment: 411.2 Performed By: #### L 300.3900 ####[facility] [address] [place], [address] PT Coag (PPP) [Time] 28.6 s High 11.7-14.9 [facility] Comment on above: Order Comment: 411.2 Performed By: #### L 300.3900 ####[facility] [address], [address] Prothrombin timeOrdered By: Kvng Crisostomo on 06-19-2024 PT Coag (PPP) [Time] 28.6 s High 11.7-14.9 [facility] International normalized rat io (INR) calculationOrdered By: Kvng Crisostomo on 06-16-2024 INR Coag (Bld) [Relative time] 2.5 {INR} [facility] Prothrombin Time w/INRon INR Coag (PPP) [Relative time] 2.5 {INR} Normal [facility] Comment on above: Order Comment: 411.2 Performed By: #### L 300.3900 ####[facility] [address] [place], [address] PT Coag (PPP) [Time] 27.3 s High 11.7-14.9 [facility] Comment on above: Order Comment: 411.2 Performed By: #### L 300.3900 ####[facility] [address] [place], [address] Prothrombin timeOrdered By: Kvng Crisostomo on 06-16-2024 PT Coag (PPP) [Time] 27.3 s High 11.7-14.9 [facility] International normalized rat io (INR) calculationOrdered By: Kvng Crisostomo on 06-12-2024 INR Coag (Bld) [Relative time] 2.1 {INR} [facility] Prothrombin Time w/INRon INR Coag (PPP) [Relative time] 2.1 {INR} Normal [facility] Comment on above: Order Comment: 411.2 Performed By: #### L 300.3900 ####[facility] [address] [place], [address] PT Coag (PPP) [Time] 24.0 s High 11.7-14.9 [facility] Comment on above: Order Comment: 411.2 Performed By: #### L 300.3900 ####[facility] [address] [place], [place], [phone] Prothrombin timeOrdered By: Kvng Crisostomo on 06-12-2024 PT Coag (PPP) [Time] 24.0 s High 11.7-14.9 [facility] International normalized rat io (INR) calculationOrdered By: Carlos Cavazos on 06-09-2024 INR Coag (Bld) [Relative time] 1.5 {INR} [facility] Prothrombin Time w/INRon INR Coag (PPP) [Relative time] 1.5 {INR} Normal [facility] Comment on above: Order Comment: 411-2 Performed By: #### L 300.3900 ####[facility] [address] [place], [address](040) PT Coag (PPP) [Time] 18.0 s High 11.7-14.9 [facility] Comment on above: Order Comment: 411-2 Performed By: #### L 300.3900 ####[facility] [address] [place], [address](748) Prothrombin timeOrdered By: Carlos Cavazos on 06-09-2024 PT Coag (PPP) [Time] 18.0 s High 11.7-14.9 [facility] International normalized rat io (INR) calculationOrdered By: Kvng Crisostomo on 06-05-2024 INR Coag (Bld) [Relative time] 2.8 {INR} [facility] Prothrombin Time w/INRon INR Coag (PPP) [Relative time] 2.8 {INR} Normal [facility] Comment on above: Order Comment: 411.2 Performed By: #### L 300.3900 ####[facility] [address] [place], [place], [phone] PT Coag (PPP) [Time] 30.3 s High 11.7-14.9 [facility] Comment on above: Order Comment: 411.2 Performed By: #### L 300.3900 ####[facility] [address] [place], [address](304) Prothrombin timeOrdered By: Kvng Crisostomo on 01-30-2025 PT Coag (PPP) [Time] 30.3 s High 11.7-14.9 [facility] International normalized rat io (INR) calculationOrdered By: Kvng Crisostomo on 06-02-2024 INR Coag (Bld) [Relative time] 2.6 {INR} [facility] Prothrombin Time w/INRon INR Coag (PPP) [Relative time] 2.6 {INR} Normal [facility] Comment on above: Order Comment: 411.2 Performed By: #### L 300.3900 ####[facility] [address] [place], [place], [phone] PT Coag (PPP) [Time] 28.6 s High 11.7-14.9 [facility] Comment on above: Order Comment: 411.2 Performed By: #### L 300.3900 ####[facility] [address] [place], [place], [phone](338) Prothrombin timeOrdered By: Kvng Crisostomo on 06-02-2024 PT Coag (PPP) [Time] 28.6 s High 11.7-14.9 [facility] International normalized rat io (INR) calculationOrdered By: Kvng Crisostomo on 05-29-2024 INR Coag (Bld) [Relative time] 2.5 {INR} [facility] Prothrombin Time w/INRon INR Coag (PPP) [Relative time] 2.5 {INR} Normal [facility] Comment on above: Order Comment: 411.2 Performed By: #### L 300.3900 ####[facility] [address] [place], [place], [phone] PT Coag (PPP) [Time] 27.7 s High 11.7-14.9 [facility] Comment on above: Order Comment: 411.2 Performed By: #### L 300.3900 ####[facility] [address] [place], [place], [phone](748) Prothrombin timeOrdered By: Kvng Crisostomo on 05-29-2024 PT Coag (PPP) [Time] 27.7 s High 11.7-14.9 [facility] International normalized rat io (INR) calculationOrdered By: Carlos Cavazos on 05-26-2024 INR Coag (Bld) [Relative time] 2.2 {INR} [facility] Prothrombin Time w/INRon INR Coag (PPP) [Relative time] 2.2 {INR} Normal [facility] Comment on above: Order Comment: 411-2 Performed By: #### L 300.3900 ####[facility] [address] [place], [address] PT Coag (PPP) [Time] 24.5 s High 11.7-14.9 [facility] Comment on above: Order Comment: 411-2 Performed By: #### L 300.3900 ####[facility] [address] [place], [address] Prothrombin timeOrdered By: Carlos Cavazos on 05-26-2024 PT Coag (PPP) [Time] 24.5 s High 11.7-14.9 [facility] International normalized rat io (INR) calculationOrdered By: Kvng Crisostomo on 05-22-2024 INR Coag (Bld) [Relative time] 2.8 {INR} [facility] Prothrombin Time w/INRon INR Coag (PPP) [Relative time] 2.8 {INR} Normal [facility] Comment on above: Order Comment: 411.2 Performed By: #### L 300.3900 ####[facility] [address] [place], [address] PT Coag (PPP) [Time] 30.3 s High 11.7-14.9 [facility] Comment on above: Order Comment: 411.2 Performed By: #### L 300.3900 ####[facility] [address] [place], [address] Prothrombin timeOrdered By: Kvng Crisostomo on 05-22-2024 PT Coag (PPP) [Time] 30.3 s High 11.7-14.9 [facility] International normalized rat io (INR) calculationOrdered By: Kvng Crisostomo on 05-20-2024 INR Coag (Bld) [Relative time] 4.0 {INR} High [facility] Comment on above: CRITICAL VALUE CASEY D TO UQBUCRSPL71/14/25 [facility] Diana Mattson.RESULTS READ BACK BY SAME. Prothrombin Time w/INRon INR Coag (PPP) [Relative time] 4.0 {INR} Invalid Interpretation Code [facility] Comment on above: Order Comment: 411.2 Result Comment: CRIT ICAL VALUE CALLED TO [place] [address] [facility] Diana Mattson.RESULTS READ BACK BY SAME. Performed By: #### L 300.3900 ####[facility] [address] [place], [place], [phone] PT Coag (PPP) [Time] 39.9 s High 11.7-14.9 [facility] Comment on above: Order Comment: 411.2 Performed By: #### L 300.3900 ####[facility] [address] [place], [place], [phone] Prothrombin timeOrdered By: Kvng Crisostomo on 05-20-2024 PT Coag (PPP) [Time] 39.9 s High 11.7-14.9 [facility] International normalized rat io (INR) calculationOrdered By: Kvng Crisostomo on 05-19-2024 INR Coag (Bld) [Relative time] 3.4 {INR} [facility] Prothrombin Time w/INRon INR Coag (PPP) [Relative time] 3.4 {INR} Normal [facility] Comment on above: Order Comment: 411.2 Performed By: #### L 300.3900 ####[facility] [address] [place], [place], [phone] PT Coag (PPP) [Time] 35.4 s High 11.7-14.9 [facility] Comment on above: Order Comment: 411.2 Performed By: #### L 300.3900 ####[facility] [address] [place], [place], [phone] Prothrombin timeOrdered By: Kvng Crisostomo on 05-19-2024 PT Coag (PPP) [Time] 35.4 s High 11.7-14.9 [facility] International normalized rat io (INR) calculationOrdered By: Kvng Crisostomo on 05-15-2024 INR Coag (Bld) [Relative time] 2.6 {INR} [facility] Prothrombin Time w/INRon INR Coag (PPP) [Relative time] 2.6 {INR} Normal [facility] Comment on above: Order Comment: 411.2 Performed By: #### L 300.3900 ####[facility] [address] [place], [place], [phone] PT Coag (PPP) [Time] 28.7 s High 11.7-14.9 [facility] Comment on above: Order Comment: 411.2 Performed By: #### L 300.3900 ####[facility] [address] [place], [place], [phone] Prothrombin timeOrdered By: Kvng Crisostomo on 05-15-2024 PT Coag (PPP) [Time] 28.7 s High 11.7-14.9 [facility] International normalized rat io (INR) calculationOrdered By: Carlos Cavazos on 05-12-2024 INR Coag (Bld) [Relative time] 2.1 {INR} [facility] Prothrombin Time w/INRon INR Coag (PPP) [Relative time] 2.1 {INR} Normal [facility] Comment on above: Order Comment: 411-2 Performed By: #### L 300.3900 ####[facility] [address], [address] PT Coag (PPP) [Time] 24.1 s High 11.7-14.9 [facility] Comment on above: Order Comment: 411-2 Performed By: #### L 300.3900 ####[facility] [address] [place], [address] Prothrombin timeOrdered By: Carlos Cavazos on 05-12-2024 PT Coag (PPP) [Time] 24.1 s High 11.7-14.9 [facility] International normalized rat io (INR) calculationOrdered By: Kvng Crisostomo on 05-09-2024 INR Coag (Bld) [Relative time] 3.4 {INR} [facility] Prothrombin Time w/INRon INR Coag (PPP) [Relative time] 3.4 {INR} Normal [facility] Comment on above: Order Comment: 411.2 Performed By: #### L 300.3900 ####[facility] [address] [place], [address] PT Coag (PPP) [Time] 35.4 s High 11.7-14.9 [facility] Comment on above: Order Comment: 411.2 Performed By: #### L 300.3900 ####[facility] [address] [place], [address] Prothrombin timeOrdered By: Kvng Crisostomo on 05-09-2024 PT Coag (PPP) [Time] 35.4 s High 11.7-14.9 [facility] International normalized rat io (INR) calculationOrdered By: Kvng Crisostomo on 05-08-2024 INR Coag (Bld) [Relative time] 4.1 {INR} High [facility] Comment on above: CRITICAL VALUE CASEY D TO WILMER MCGINNIS05/08/24 0950 Karen Jamison.RESULTS READ BACK BY SAME. Prothrombin Time w/INRon INR Coag (PPP) [Relative time] 4.1 {INR} Invalid Interpretation Code [facility] Comment on above: Order Comment: 411.2 Result Comment: CRIT ICAL VALUE CALLED TO WILMER HAIRSTONMARLEN05/08/24 0950 Karen Jamison.RESULTS READ BACK BY SAME. Performed By: #### L 300.3900 ####[facility] [address] [place], [address] PT Coag (PPP) [Time] 40.8 s High 11.7-14.9 [facility] Comment on above: Order Comment: 411.2 Performed By: #### L 300.3900 ####[facility] [address] [place], [address] Prothrombin timeOrdered By: Kvng Crisostomo on 05-08-2024 PT Coag (PPP) [Time] 40.8 s High 11.7-14.9 [facility] International normalized rat io (INR) calculationOrdered By: Kvng Crisostomo on 05-05-2024 INR Coag (Bld) [Relative time] 3.2 {INR} [facility] Prothrombin Time w/INRon INR Coag (PPP) [Relative time] 3.2 {INR} Normal [facility] Comment on above: Order Comment: 411.2 Performed By: #### L 300.3900 ####[facility] [address] [place], [address] PT Coag (PPP) [Time] 32.5 s High 11.7-14.9 [facility] Comment on above: Order Comment: 411.2 Performed By: #### L 300.3900 ####[facility] [address] [place], [address] Prothrombin timeOrdered By: Kvng Crisostomo on 05-05-2024 PT Coag (PPP) [Time] 32.5 s High 11.7-14.9 [facility] International normalized rat io (INR) calculationOrdered By: Kvng Crisostomo on 05-01-2024 INR Coag (Bld) [Relative time] 3.1 {INR} [facility] Prothrombin Time w/INRon INR Coag (PPP) [Relative time] 3.1 {INR} Normal [facility] Comment on above: Order Comment: 411.2 Performed By: #### L 300.3900 ####[facility] [address] [place], [address] PT Coag (PPP) [Time] 31.9 s High 11.7-14.9 [facility] Comment on above: Order Comment: 411.2 Performed By: #### L 300.3900 ####[facility] [address] [place], [address] Prothrombin timeOrdered By: Kvng Crisostomo on 05-01-2024 PT Coag (PPP) [Time] 31.9 s High 11.7-14.9 [facility] International normalized rat io (INR) calculationOrdered By: Carlos Cavazos on 04-28-2024 INR Coag (Bld) [Relative time] 2.6 {INR} [facility] Prothrombin Time w/INRon INR Coag (PPP) [Relative time] 2.6 {INR} Normal [facility] Comment on above: Order Comment: 411-2 Performed By: #### L 300.3900 ####[facility] [address] [place], [address] PT Coag (PPP) [Time] 27.3 s High 11.7-14.9 [facility] Comment on above: Order Comment: 411-2 Performed By: #### L 300.3900 ####[facility] [address] [place], [address] Prothrombin timeOrdered By: Carlos Cavazos on 04-28-2024 PT Coag (PPP) [Time] 27.3 s High 11.7-14.9 [facility] International normalized rat io (INR) calculationOrdered By: Kvng Crisostomo on 04-24-2024 INR Coag (Bld) [Relative time] 3.6 {INR} [facility] Prothrombin Time w/INRon INR Coag (PPP) [Relative time] 3.6 {INR} Normal [facility] Comment on above: Order Comment: 411.2 Performed By: #### L 300.3900 ####[facility] [address] [place], [address] PT Coag (PPP) [Time] 35.6 s High 11.7-14.9 [facility] Comment on above: Order Comment: 411.2 Performed By: #### L 300.3900 ####[facility] [address] [place], [address] Prothrombin timeOrdered By: Kvng Crisostomo on 04-24-2024 PT Coag (PPP) [Time] 35.6 s High 11.7-14.9 [facility] International normalized rat io (INR) calculationOrdered By: Carlos Cavazos on 04-21-2024 INR Coag (Bld) [Relative time] 2.8 {INR} [facility] Prothrombin Time w/INRon INR Coag (PPP) [Relative time] 2.8 {INR} Normal [facility] Comment on above: Order Comment: 411-2 Performed By: #### L 300.3900 ####[facility] [address] [place], [address] PT Coag (PPP) [Time] 29.4 s High 11.7-14.9 [facility] Comment on above: Order Comment: 411-2 Performed By: #### L 300.3900 ####[facility] [address] [place], [address] Prothrombin timeOrdered By: Carlos Cavazos on 04-21-2024 PT Coag (PPP) [Time] 29.4 s High 11.7-14.9 [facility] International normalized rat io (INR) calculationOrdered By: Kvng Crisostomo on 04-17-2024 INR Coag (Bld) [Relative time] 3.1 {INR} [facility] Prothrombin Time w/INRon INR Coag (PPP) [Relative time] 3.1 {INR} Normal [facility] Comment on above: Order Comment: 411.2 Performed By: #### L 300.3900 ####[facility] [address] [place], [place], [phone] Prothrombin timeOrdered By: Kvng Crisostomo on 04-17-2024 PT Coag (PPP) [Time] 31.3 s High 11.7-14.9 [facility] Comment on above: Order Comment: 411.2 Performed By: #### L 300.3900 ####[facility] [address] [place], [place], [phone](255) International normalized rat io (INR) calculationOrdered By: Kvng Crisostomo on 04-14-2024 INR Coag (Bld) [Relative time] 3.3 {INR} [facility] Prothrombin Time w/INRon INR Coag (PPP) [Relative time] 3.3 {INR} Normal [facility] Comment on above: Order Comment: 411.2 Performed By: #### L 300.3900 ####[facility] [address] [place], [place], [id number] PT Coag (PPP) [Time] 33.2 s High 11.7-14.9 [facility] Comment on above: Order Comment: 411.2 Performed By: #### L 300.3900 ####[facility] [address] [place], [place], [phone](688) Prothrombin timeOrdered By: Kvng Crisostomo on 04-14-2024 PT Coag (PPP) [Time] 33.2 s High 11.7-14.9 [facility] International normalized rat io (INR) calculationOrdered By: Kvng Crisostomo on 04-10-2024 INR Coag (Bld) [Relative time] 2.8 {INR} [facility] Prothrombin Time w/INRon INR Coag (PPP) [Relative time] 2.8 {INR} Normal [facility] Comment on above: Order Comment: 411.2 Performed By: #### L 300.3900 ####[facility] [address] [place], [address] PT Coag (PPP) [Time] 29.2 s High 11.7-14.9 [facility] Comment on above: Order Comment: 411.2 Performed By: #### L 300.3900 ####[facility] [address] [place], [address] Prothrombin timeOrdered By: Kvng Crisostomo on 04-10-2024 PT Coag (PPP) [Time] 29.2 s High 11.7-14.9 [facility] International normalized rat io (INR) calculationOrdered By: Carlos Cavazos on 04-07-2024 INR Coag (Bld) [Relative time] 2.7 {INR} [facility] Prothrombin Time w/INRon INR Coag (PPP) [Relative time] 2.7 {INR} Normal [facility] Comment on above: Order Comment: 411-2 Performed By: #### L 300.3900 ####[facility] [id number] [place], [address] PT Coag (PPP) [Time] 28.1 s High 11.7-14.9 [facility] Comment on above: Order Comment: 411-2 Performed By: #### L 300.3900 ####[facility] [id number] [place], [address] Prothrombin timeOrdered By: Carlos Cavazos on 04-07-2024 PT Coag (PPP) [Time] 28.1 s High 11.7-14.9 [facility] normalized rat io (INR) calculationOrdered By: Kvng Crisostomo on 04-04-2024 INR Coag (Bld) [Relative time] 2.8 {INR} [facility] Prothrombin Time w/INRon INR Coag (PPP) [Relative time] 2.8 {INR} Normal [facility] Comment on above: Order Comment: 411.2 Performed By: #### L 300.3900 ####[facility] [address] [place], [place], [id number] PT Coag (PPP) [Time] 28.9 s High 11.7-14.9 [facility] Comment on above: Order Comment: 411.2 Performed By: #### L 300.3900 ####[facility] [address], [address] Prothrombin timeOrdered By: Kvng Crisostomo on 04-04-2024 PT Coag (PPP) [Time] 28.9 s High 11.7-14.9 [facility] International normalized rat io (INR) calculationOrdered By: Carlos Cavazos on 03-31-2024 INR Coag (Bld) [Relative time] 2.6 {INR} [facility] Prothrombin Time w/INRon INR Coag (PPP) [Relative time] 2.6 {INR} Normal [facility] Comment on above: Order Comment: 411-2 Performed By: #### L 300.3900 ####[facility] [address] [place], [address] PT Coag (PPP) [Time] 27.3 s High 11.7-14.9 [facility] Comment on above: Order Comment: 411-2 Performed By: #### L 300.3900 ####[facility] [address] [place], [address] Prothrombin timeOrdered By: Carlos Cavazos on 03-31-2024 PT Coag (PPP) [Time] 27.3 s High 11.7-14.9 [facility] International normalized rat io (INR) calculationOrdered By: [facility] on 03-27-2024 INR Coag (Bld) [Relative time] 2.2 {INR} [facility] Prothrombin Time w/INRon INR Coag (PPP) [Relative time] 2.2 {INR} Normal [facility] Comment on above: Order Comment: 411.2 Performed By: #### L 300.3900 ####[facility] [address] [place], [address] PT Coag (PPP) [Time] 24.3 s High 11.7-14.9 [facility] Comment on above: Order Comment: 411.2 Performed By: #### L 300.3900 ####[facility] [address] [place], [address] Prothrombin timeOrdered By: [employer] on 03-27-2024 PT Coag (PPP) [Time] 24.3 s High 11.7-14.9 [facility] [employer] normalized rat io (INR) calculationOrdered By: Kvng Crisostomo on 03-24-2024 INR Coag (Bld) [Relative time] 1.8 {INR} [facility] Prothrombin Time w/INRon INR Coag (PPP) [Relative time] 1.8 {INR} Normal [facility] Comment on above: Order Comment: 411.2 Performed By: #### L 300.3900 ####[facility] [address] [place], [address] PT Coag (PPP) [Time] 20.7 s High 11.7-14.9 [facility] Comment on above: Order Comment: 411.2 Performed By: #### L 300.3900 ####[facility] [address] [place], [address] Prothrombin timeOrdered By: Elizabethet Andressa on 03-24-2024 PT Coag (PPP) [Time] 20.7 s High 11.7-14.9 [facility] [employer] normalized rat io (INR) calculationOrdered By: [employer] on 03-20-2024 INR Coag (Bld) [Relative time] 1.8 {INR} [facility] Prothrombin Time w/INRon INR Coag (PPP) [Relative time] 1.8 {INR} Normal [facility] Comment on above: Order Comment: 411.2 Performed By: #### L 300.3900 ####[facility] [address] [place], [address] PT Coag (PPP) [Time] 20.9 s High 11.7-14.9 [facility] Comment on above: Order Comment: 411.2 Performed By: #### L 300.3900 ####[facility] [address] [facility] [address] Prothrombin timeOrdered By: [employer] on 03-20-2024 PT Coag (PPP) [Time] 20.9 s High 11.7-14.9 [facility] [employer] normalized rat io (INR) calculationOrdered By: Kvng Crisostomo on 03-19-2024 INR Coag (Bld) [Relative time] 2.4 {INR} [facility] Prothrombin Time w/INRon INR Coag (PPP) [Relative time] 2.4 {INR} Normal [facility] Comment on above: Order Comment: 411.2 Performed By: #### L 300.3900 ####[facility] [address], [address] PT Coag (PPP) [Time] 26.4 s High 11.7-14.9 [facility] Comment on above: Order Comment: 411.2 Performed By: #### L 300.3900 ####[facility] [address] [place], [address] Prothrombin timeOrdered By: Elizabethet Andressa on 03-19-2024 PT Coag (PPP) [Time] 26.4 s High 11.7-14.9 [facility] [employer] normalized rat io (INR) calculationOrdered By: [employer] on 03-18-2024 INR Coag (Bld) [Relative time] 3.2 {INR} [facility] Prothrombin Time w/INRon INR Coag (PPP) [Relative time] 3.2 {INR} Normal [facility] Comment on above: Order Comment: 411.2 Performed By: #### L 300.3900 ####[facility] [address] [facility] [address] PT Coag (PPP) [Time] 32.3 s High 11.7-14.9 [facility] Comment on above: Order Comment: 411.2 Performed By: #### L 300.3900 ####[facility] [address] [place], [address] Prothrombin timeOrdered By: [employer] on 03-18-2024 PT Coag (PPP) [Time] 32.3 s High 11.7-14.9 [facility] [employer] normalized rat io (INR) calculationOrdered By: [employer] on 03-17-2024 INR Coag (Bld) [Relative time] 3.6 {INR} [facility] Prothrombin Time w/INRon INR Coag (PPP) [Relative time] 3.6 {INR} Normal [facility] Comment on above: Order Comment: 411.2 Performed By: #### L 300.3900 ####[facility] [address] [place], [address] PT Coag (PPP) [Time] 35.7 s High 11.7-14.9 [facility] Comment on above: Order Comment: 411.2 Performed By: #### L 300.3900 ####[facility] [address], [address] Prothrombin timeOrdered By: [employer] on 03-17-2024 PT Coag (PPP) [Time] 35.7 s High 11.7-14.9 [facility] [employer] normalized rat io (INR) calculationOrdered By: Carlos Cavazos on 03-14-2024 INR Coag (Bld) [Relative time] 3.5 {INR} [facility] Prothrombin Time w/INRon INR Coag (PPP) [Relative time] 3.5 {INR} Normal [facility] Comment on above: Order Comment: 411-2 Performed By: #### L 300.3900 ####[facility] [address] [place], [address] PT Coag (PPP) [Time] 35.0 s High 11.7-14.9 [facility] Comment on above: Order Comment: 411-2 Performed By: #### L 300.3900 ####[facility] [address] [place], [address] Prothrombin timeOrdered By: Carlos Cavazos on 03-14-2024 PT Coag (PPP) [Time] 35.0 s High 11.7-14.9 [facility] [employer] normalized rat io (INR) calculationOrdered By: [employer] on 03-13-2024 INR Coag (Bld) [Relative time] 3.2 {INR} [facility] Prothrombin Time w/INRon INR Coag (PPP) [Relative time] 3.2 {INR} Normal [facility] Comment on above: Performed By: #### L 300.3900 ####[facility] [address], [address] PT Coag (PPP) [Time] 32.2 s High 11.7-14.9 [facility] Comment on above: Performed By: #### L 300.3900 ####[facility] [address] [place], [address] Prothrombin timeOrdered By: [employer] on 03-13-2024 PT Coag (PPP) [Time] 32.2 s High 11.7-14.9 [facility] Prothrombin Time w/INRon INR Coag (PPP) [Relative time] 2.6 {INR} Normal [facility] Comment on above: Order Comment: 411.2 Performed By: #### L 300.3900 ####[facility] [address] [place], [address] PT Coag (PPP) [Time] 27.7 s High 11.7-14.9 [facility] Comment on above: Order Comment: 411.2 Performed By: #### L 300.3900 ####[facility] [address] [place], [address] Prothrombin Time w/INRon INR Coag (PPP) [Relative time] 3.1 {INR} Normal [facility] Comment on above: Order Comment: 411.2 Performed By: #### L 300.3900 ####[facility] [address] [place], [address] PT Coag (PPP) [Time] 31.4 s High 11.7-14.9 [facility] Comment on above: Order Comment: 411.2 Performed By: #### L 300.3900 ####[facility] [address] [place], [address] Prothrombin Time w/INRon INR Coag (PPP) [Relative time] 3.1 {INR} Normal [facility] Comment on above: Order Comment: 411.2 Performed By: #### L 300.3900 ####[facility] [address] [place], [address] PT Coag (PPP) [Time] 31.8 s High 11.7-14.9 [facility] Comment on above: Order Comment: 411.2 Performed By: #### L 300.3900 ####[facility] [address] [place], [address] Prothrombin Time w/INRon INR Coag (PPP) [Relative time] 3.0 {INR} Normal [facility] Comment on above: Order Comment: 411.2 Performed By: #### L 300.3900 ####[facility] [address] [place], [address] PT Coag (PPP) [Time] 30.6 s High 11.7-14.9 [facility] Comment on above: Order Comment: 411.2 Performed By: #### L 300.3900 ####[facility] [address] [place], [address] Prothrombin Time w/INRon -2023 INR Coag (PPP) [Relative time] 2.6 {INR} Normal [facility] Comment on above: Order Comment: 411-2 Performed By: #### L 300.3900 ####[facility] [address] [place], [address] PT Coag (PPP) [Time] 27.5 s High 11.7-14.9 [facility] Comment on above: Order Comment: 411-2 Performed By: #### L 300.3900 ####[facility] [address] [place], [address] Prothrombin Time w/INRon -2023 INR Coag (PPP) [Relative time] 2.3 {INR} Normal [facility] Comment on above: Order Comment: 411.2 Performed By: #### L 300.3900 ####[facility] [address] [place], [address] PT Coag (PPP) [Time] 25.5 s High 11.7-14.9 [facility] Comment on above: Order Comment: 411.2 Performed By: #### L 300.3900 ####[facility] [address] [place], [address] Prothrombin Time w/INRon - -2023 INR Coag (PPP) [Relative time] 1.9 {INR} Normal [facility] Comment on above: Order Comment: 411.2 Performed By: #### L 300.3900 ####[facility] [address] [place], [address] PT Coag (PPP) [Time] 21.3 s High 11.7-14.9 [facility] Comment on above: Order Comment: 411.2 Performed By: #### L 300.3900 ####[facility] [address] [place], [address] Prothrombin Time w/INRon INR Coag (PPP) [Relative time] 2.5 {INR} Normal [facility] Comment on above: Order Comment: 411.2 Performed By: #### L 300.3900 ####[facility] [address] [place], [address] PT Coag (PPP) [Time] 26.5 s High 11.7-14.9 [facility] Comment on above: Order Comment: 411.2 Performed By: #### L 300.3900 ####[facility] [address] [place], [address] Prothrombin Time w/INRon INR Coag (PPP) [Relative time] 2.9 {INR} Normal [facility] Comment on above: Order Comment: 411.2 Performed By: #### L 300.3900 ####[facility] [address] [place], [address] PT Coag (PPP) [Time] 30.2 s High 11.7-14.9 [facility] Comment on above: Order Comment: 411.2 Performed By: #### L 300.3900 ####[facility] [address] [place], [address] Prothrombin Time w/INRon INR Coag (PPP) [Relative time] 3.6 {INR} Normal [facility] Comment on above: Order Comment: 411.2 Performed By: #### L 300.3900 ####[facility] [address] [place], [address] PT Coag (PPP) [Time] 35.3 s High 11.7-14.9 [facility] Comment on above: Order Comment: 411.2 Performed By: #### L 300.3900 ####[facility] [address] [place], [address] Prothrombin Time w/INRon INR Coag (PPP) [Relative time] 2.8 {INR} Normal [facility] Comment on above: Order Comment: 411-2 Performed By: #### L 300.3900 ####[facility] [address] [place], [address] PT Coag (PPP) [Time] 29.4 s High 11.7-14.9 [facility] Comment on above: Order Comment: 411-2 Performed By: #### L 300.3900 ####[facility] [address] [place], [address] Prothrombin Time w/INRon INR Coag (PPP) [Relative time] 2.9 {INR} Normal [facility] Comment on above: Order Comment: 411.2 Performed By: #### L 300.3900 ####[facility] [address] [place], [address] PT Coag (PPP) [Time] 29.9 s High 11.7-14.9 [facility] Comment on above: Order Comment: 411.2 Performed By: #### L 300.3900 ####[facility] [address] [place], [address] Prothrombin Time w/INRon INR Coag (PPP) [Relative time] 2.2 {INR} Normal [facility] Comment on above: Order Comment: 411.2 Performed By: #### L 300.3900 ####[facility] [address] [place], [address] PT Coag (PPP) [Time] 24.1 s High 11.7-14.9 [facility] Comment on above: Order Comment: 411.2 Performed By: #### L 300.3900 ####[facility] [address] [place], [address] Prothrombin Time w/INRon INR Coag (PPP) [Relative time] 2.1 {INR} Normal [facility] Comment on above: Order Comment: 411-2 Performed By: #### L 300.3900 ####[facility] [address] [place], [address] PT Coag (PPP) [Time] 23.0 s High 11.7-14.9 [facility] Comment on above: Order Comment: 411-2 Performed By: #### L 300.3900 ####[facility] [address] [place], [address] Prothrombin Time w/INRon INR Coag (PPP) [Relative time] 2.8 {INR} Normal [facility] Comment on above: Performed By: #### L 300.3900 ####[facility] [address] [place], [address] PT Coag (PPP) [Time] 28.9 s High 11.7-14.9 [facility] Comment on above: Performed By: #### L 300.3900 ####[facility] [address] [place], [address] Protime w/INR Fingerstickon 01-29-2024 INR Coag (PPP) [Relative time] 3.2 {INR} Normal [facility] Comment on above: Result Comment: Crit ical Value > 4.0 Performed By: #### L 9200.0000 ####[facility] [address] [place], [address] Protime Coagsen 31.8 SEC High 11.7-14.9 [facility] Comment on above: Performed By: #### L 9200.0000 ####[facility] [address] [place], [address] KEPPRA (LEVETIRACETAM)on KEPPRA 35.2 ug/mL Normal 10.0-40.0 [facility] Comment on above: Order Comment: 411-2 Result Comment: Perf ormed at: [facility] [address] [id number] Director: Alpesh Vázquez MD, Phone: [phone] Performed By: #### L 300.3900, L3310.0000 ####[facility] [address] [place], [address] Prothrombin Time w/INRon INR Coag (PPP) [Relative time] 2.9 {INR} Normal [facility] Comment on above: Order Comment: 411-2 Performed By: #### L 300.3900, L3310.0000 ####[facility] [address] [place], [address] PT Coag (PPP) [Time] 30.1 s High 11.7-14.9 [facility] Comment on above: Order Comment: 411-2 Performed By: #### L 300.3900, L3310.0000 ####[facility] [address] [place], [address] Prothrombin Time w/INRon INR Coag (PPP) [Relative time] 2.3 {INR} Normal [facility] Comment on above: Order Comment: 411-2 Performed By: #### L 300.3900 ####[facility] [address] [place], [address] PT Coag (PPP) [Time] 25.2 s High 11.7-14.9 [facility] Comment on above: Order Comment: 411-2 Performed By: #### L 300.3900 ####[facility] [address] [place], [address] Prothrombin Time w/INRon INR Coag (PPP) [Relative time] 2.7 {INR} Normal [facility] Comment on above: Order Comment: 411-2 Performed By: #### L 300.3900 ####[facility] [address] [place], [address] PT Coag (PPP) [Time] 28.3 s High 11.7-14.9 [facility] Comment on above: Order Comment: 411-2 Performed By: #### L 300.3900 ####[facility] [address] [place], [address] Protime w/INR Fingerstickon 01-10-2024 INR Coag (PPP) [Relative time] 3.5 {INR} Normal [facility] Comment on above: Result Comment: Crit ical Value > 4.0 Performed By: #### L 9200.0000 ####[facility] [address] [place], [address] Protime Coagsen 34.2 SEC High 11.7-14.9 [facility] Comment on above: Performed By: #### L 9200.0000 ####[facility] [address] [place], [address] CBC-Complete Blood Cnt No Di ffon 01-08-2024 Erythrocyte distribution width (RBC) [Ratio] 15.2 % High 11.6-14.6 [facility] Comment on above: Order Comment: 411-2 Performed By: #### L 100.0500, L300.3900 ####[facility] [address] [place], [address] Hematocrit (Bld) [Volume fraction] 39.0 % Low 40-54 [facility] Comment on above: Order Comment: 411-2 Performed By: #### L 100.0500, L300.3900 ####[facility] [address] [place], [address] Hemoglobin (Bld) [Mass/Vol] 12.1 g/dL Low 13.0-16.5 [facility] Comment on above: Order Comment: 411-2 Performed By: #### L 100.0500, L300.3900 ####[facility] [address] [place], [address] MCH (RBC) [Entitic mass] 27.1 pg Normal 27.0-32.0 [facility] Comment on above: Order Comment: 411-2 Performed By: #### L 100.0500, L300.3900 ####[facility] [address] [place], [address] MCHC (RBC) [Mass/Vol] 31.0 g/dL Low 32-36 [facility] Comment on above: Order Comment: 411-2 Performed By: #### L 100.0500, L300.3900 ####[facility] [address] [place], [address] MCV (RBC) [Entitic vol] 87.2 fL Normal 80-94 [facility] Comment on above: Order Comment: 411-2 Performed By: #### L 100.0500, L300.3900 ####[facility] [address] [place], [address] Platelet mean volume (Bld) [Entitic vol] 10.8 fL Normal 6.2-12.0 [facility] Comment on above: Order Comment: 411-2 Performed By: #### L 100.0500, L300.3900 ####[facility] [address] [place], [address] Platelets (Bld) [#/Vol] 300 10*3/uL Normal 150-450 [facility] Comment on above: Order Comment: 411-2 Performed By: #### L 100.0500, L300.3900 ####[facility] [address] [place], [address] RBC (Bld) [#/Vol] 4.47 10*6/uL Low 4.6-6.2 [facility] Comment on above: Order Comment: 411-2 Performed By: #### L 100.0500, L300.3900 ####[facility] [address] [place], [address] RDW SD 48.7 fl High 35.1-43.9 [facility] Comment on above: Order Comment: 411-2 Performed By: #### L 100.0500, L300.3900 ####[facility] [address] [place], [address] WBC (Bld) [#/Vol] 13.0 10*3/uL High 4.4-11.0 [facility] Comment on above: Order Comment: 411-2 Performed By: #### L 100.0500, L300.3900 ####[facility] [address] [place], [address] Prothrombin Time w/INRon INR Coag (PPP) [Relative time] 3.9 {INR} Normal [facility] Comment on above: Order Comment: 411-2 Performed By: #### L 100.0500, L300.3900 ####[facility] [address] [place], [address] PT Coag (PPP) [Time] 37.8 s High 11.7-14.9 [facility] Comment on above: Order Comment: 411-2 Performed By: #### L 100.0500, L300.3900 ####[facility] [address] [place], [address] Urine Cultureon 01-03-2024 URC Culture exhibits no growth. Normal [facility] Comment on above: Performed By: #### M 100.2200, L400.0001, L300.3900 ####[facility] [address] [place], [address] Prothrombin Time w/INRon INR Coag (PPP) [Relative time] 3.0 {INR} Normal [facility] Comment on above: Performed By: #### M 100.2200, L400.0001, L300.3900 ####[facility] [address] [place], [address] PT Coag (PPP) [Time] 30.7 s High 11.7-14.9 [facility] Comment on above: Performed By: #### M 100.2200, L400.0001, L300.3900 ####[facility] [address] [place], [address] Urinalysis, Completeon 01-01 RBC 0-5 SEEN Normal 0-5 [facility] Comment on above: Order Comment: CLEAN CATCH Performed By: #### M 100.2200, L400.0001, L300.3900 ####[facility] [address] [place], [address] BACTERIA 0 SEEN Normal None Seen [facility] Comment on above: Order Comment: CLEAN CATCH Performed By: #### M 100.2200, L400.0001, L300.3900 ####[facility] [address] [place], [address] EPI,SQUAMOUS 0 SEEN Normal 0-5 [facility] Comment on above: Order Comment: CLEAN CATCH Performed By: #### M 100.2200, L400.0001, L300.3900 ####[facility] [address] [place], [address] Mucus Ql (Urine sed) 0 SEEN Normal [facility] Comment on above: Order Comment: CLEAN CATCH Performed By: #### M 100.2200, L400.0001, L300.3900 ####[facility] [address] [place], [address] WBC 0 SEEN Normal 0-5 [facility] Comment on above: Order Comment: CLEAN CATCH Performed By: #### M 100.2200, L400.0001, L300.3900 ####[facility] [address] [place], [address] Basic Metabolic Profile (BMP )on 01-01-2024 BUN/CRE 25.0 RATIO High 10-20 [facility] Comment on above: Order Comment: 411.2 Performed By: #### L 300.3900, L100.0500, L500.2500 ####[facility] [address] [place], [address] CA,Total 9.1 mg/dL Normal 8.5-10.1 [facility] Comment on above: Order Comment: 411.2 Performed By: #### L 300.3900, L100.0500, L500.2500 ####[facility] [address] [place], [address] Chloride [Moles/Vol] 104 mmol/L Normal 98-107 [facility] Comment on above: Order Comment: 411.2 Performed By: #### L 300.3900, L100.0500, L500.2500 ####[facility] [address] [place], [address] CO2 [Moles/Vol] 24.0 mmol/L Normal 21.0-32.0 [facility] Comment on above: Order Comment: 411.2 Performed By: #### L 300.3900, L100.0500, L500.2500 ####[facility] [address] [place], [address] Creatinine [Mass/Vol] 0.84 mg/dL Normal 0.70-1.30 [facility] Comment on above: Order Comment: 411.2 Result Comment: The validity of the calculated GFR GFRAA in patients over70 years has not been determined. Clinical correlation isessential. Performed By: #### L 300.3900, L100.0500, L500.2500 ####[facility] [address] [place], [address] EST GFR - AA 116 mL/min Normal >60 [facility] Comment on above: Order Comment: 411.2 Result Comment: Afri can Algerian GFR Calc Performed By: #### L 300.3900, L100.0500, L500.2500 ####[facility] [address] [place], [address] GAP 9 Normal 5-15 [facility] Comment on above: Order Comment: 411.2 Performed By: #### L 300.3900, L100.0500, L500.2500 ####[facility] [address] [place], [address] GFR/1.73 sq M.predicted among non-blacks MDRD (S/P/Bld) [Vol rate/Area] 95 mL/min/{1.73_m2} Normal >60 [facility] Comment on above: Order Comment: 411.2 Result Comment: Non- GFR Calc Performed By: #### L 300.3900, L100.0500, L500.2500 ####[facility] [address] [place], [address] Glucose [Mass/Vol] 92 mg/dL Normal 74-106 [facility] Comment on above: Order Comment: 411.2 Performed By: #### L 300.3900, L100.0500, L500.2500 ####[facility] [address] [place], [address] Potassium [Moles/Vol] 4.2 mmol/L Normal 3.5-5.1 [facility] Comment on above: Order Comment: 411.2 Performed By: #### L 300.3900, L100.0500, L500.2500 ####[facility] [address] [place], [address] Sodium [Moles/Vol] 137 mmol/L Normal 136-145 [facility] Comment on above: Order Comment: 411.2 Performed By: #### L 300.3900, L100.0500, L500.2500 ####[facility] [address] [place], [address] Urea nitrogen [Mass/Vol] 21 mg/dL High 7-18 [facility] Comment on above: Order Comment: 411.2 Performed By: #### L 300.3900, L100.0500, L500.2500 ####[facility] [address] [place], [address] CBC-Complete Blood Cnt No Di ffon 01-01-2024 Erythrocyte distribution width (RBC) [Ratio] 14.9 % High 11.6-14.6 [facility] Comment on above: Order Comment: 411.2 Performed By: #### L 300.3900, L100.0500, L500.2500 ####[facility] [address] [place], [address] Hematocrit (Bld) [Volume fraction] 38.4 % Low 40-54 [facility] Comment on above: Order Comment: 411.2 Performed By: #### L 300.3900, L100.0500, L500.2500 ####[facility] [address] [place], [address] Hemoglobin (Bld) [Mass/Vol] 12.2 g/dL Low 13.0-16.5 [facility] Comment on above: Order Comment: 411.2 Performed By: #### L 300.3900, L100.0500, L500.2500 ####[facility] [address] [place], [address] MCH (RBC) [Entitic mass] 27.1 pg Normal 27.0-32.0 [facility] Comment on above: Order Comment: 411.2 Performed By: #### L 300.3900, L100.0500, L500.2500 ####[facility] [address] [place], [address] MCHC (RBC) [Mass/Vol] 31.8 g/dL Low 32-36 [facility] Comment on above: Order Comment: 411.2 Performed By: #### L 300.3900, L100.0500, L500.2500 ####[facility] [address] [place], [address] MCV (RBC) [Entitic vol] 85.3 fL Normal 80-94 [facility] Comment on above: Order Comment: 411.2 Performed By: #### L 300.3900, L100.0500, L500.2500 ####[facility] [address] [place], [address] Platelet mean volume (Bld) [Entitic vol] 10.1 fL Normal 6.2-12.0 [facility] Comment on above: Order Comment: 411.2 Performed By: #### L 300.3900, L100.0500, L500.2500 ####[facility] [address] [place], [address] Platelets (Bld) [#/Vol] 287 10*3/uL Normal 150-450 [facility] Comment on above: Order Comment: 411.2 Performed By: #### L 300.3900, L100.0500, L500.2500 ####[facility] [address] [place], [address] RBC (Bld) [#/Vol] 4.50 10*6/uL Low 4.6-6.2 [facility] Comment on above: Order Comment: 411.2 Performed By: #### L 300.3900, L100.0500, L500.2500 ####[facility] [address] [place], [address] RDW SD 46.5 fl High 35.1-43.9 [facility] Comment on above: Order Comment: 411.2 Performed By: #### L 300.3900, L100.0500, L500.2500 ####[facility] [address] [place], [address] WBC (Bld) [#/Vol] 14.8 10*3/uL High 4.4-11.0 [facility] Comment on above: Order Comment: 411.2 Performed By: #### L 300.3900, L100.0500, L500.2500 ####[facility] [address] [place], [address] Prothrombin Time w/INRon INR Coag (PPP) [Relative time] 2.5 {INR} Normal [facility] Comment on above: Order Comment: 411.2 Performed By: #### L 300.3900, L100.0500, L500.2500 ####[facility] [address] [place], [address] PT Coag (PPP) [Time] 26.6 s High 11.7-14.9 [facility] Comment on above: Order Comment: 411.2 Performed By: #### L 300.3900, L100.0500, L500.2500 ####[facility] [address] [place], [address] Prothrombin Time w/INRon INR Coag (PPP) [Relative time] 2.1 {INR} Normal [facility] Comment on above: Order Comment: 411.2 Performed By: #### L 300.3900 ####[facility] [address] [place], [address] PT Coag (PPP) [Time] 23.5 s High 11.7-14.9 [facility] Comment on above: Order Comment: 411.2 Performed By: #### L 300.3900 ####[facility] [address] [place], [address] Office Visiton 09-13-2023 Follow-up visit [id number] Tamie Sifuentes cheng Gonzalez 1950 M Date Provider Department Center 09/13/2023 [id number] BUCK [facility] None Family History Problem Relation Age of Onset Heart disease Father Cancer Mother Family Status - Relation Status Age at Father Mother Level of Service:99636 [place] OFFICE/OUTPATIENT ESTABLISHED MOD MDM 30 MIN Reason for Visit and Comments: left flank pain [Other] - 8/10 pain when touched Normal [facility] Progress Noteon 09-13-2023 Progress Note Walt [...] Hydrocephalus, adult (CMS/HCC) (HCC) Kidney stone Neuropathy 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 Normal [facility] CT ABDOMEN PELVIS WO IV CONT Kelly 09-07-2023 CT ABDOMEN PELVIS WO IV CONTRAST Patient Name: ANDREW SIFUNETES : 1950 Exam Date/Time: 09/06/2023 18:14 Procedure: [...] a kidney stone; pt has a hernia [facility] 36on 08-29-2023 36 Lm on daughters vm t o advise them to call the number for the support group manager to get clarification, and to call back with further questions [facility] 36on 08-27-2023 36 Yes, they will need to call the number given to them. [facility] 36 Please advise [facility] 36on 08-21-2023 36 Name of caller: Zion holt Contact phone number: [phone] Relationship to Patient: patient Provider: MD Quinn Practice: [facility] Chief Complaint/Reason for Call: Shanthi called [...] to reach out to call Maury Cedeño Mill Laborer at [facility] [phone] to get clarifications. TEA did reach back out to [facility] and advised and provider Maury's #. Please advise Best time of day caller can be reached: Any Patient advised that office/PCP has 24-48 business hours to return their call: N/A [facility] Laboratory - CoagulationOrde red By: Carlos Cavazos on 08-21-2023 INR Coag (Bld) [Relative time] 2.7 {INR} [facility] PT Coag (PPP) [Time] 28.9 s 11.7-14.9 [facility] Office Visiton 08-13-2023 Follow-up visit [id number] Tamie Sifuentes 1950 M Date Provider Department Center 08/13/2023 [id number] BUCK [facility] None Family History Problem Relation Age of Onset Heart disease Father Cancer Mother Family Status - Relation Status Age at Father Mother Level of Service:54418 [place] OFFICE/OUTPATIENT NEW MODERATE MDM 45 MINUTES Reason for Visit and Comments: New Patient [542] - Bilateral flank pain, hx of kidney stones Nephrolithiasis [[id number]] [facility] Progress Noteon 08-13-2023 Progress Note Walt [...] Hydrocephalus, adult (CMS/HCC) (HCC) 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 Normal [facility] No Panel InformationOrdered By: Carlos Cavazos on 08-03-2023 Levetiracetam (Keppra) Level 32.4 ug/mL 10.0-40.0 [facility] Comment on above: Performed at: [address] [id number] Director: Alpesh Vázquez MD, Phone: [phone] Basophil percentageOrdered B y: Carlos Cavazos on 07-20-2023 Chloride [Moles/Vol] 106 mmol/L 98-107 [facility] Glucose [Mass/Vol] 98 mg/dL 74-106 [facility] Hemoglobin (Bld) [Mass/Vol] 12.5 g/dL 13.0-16.5 [facility] Potassium [Moles/Vol] 4.3 mmol/L 3.5-5.1 [facility] Sodium [Moles/Vol] 135 mmol/L 136-145 [facility] WBC (Bld) [#/Vol] 13.0 10*3/uL 4.4-11.0 [facility] Determination of erythrocyte mean corpuscular volume (MCV)Ordered By: Carlos Cavazos on 07-20-2023 MCV (RBC) [Entitic vol] 86.2 fL 80-94 [facility] Erythrocyte distribution wid th ratioOrdered By: Carlos Cavazos on 07-20-2023 Erythrocyte distribution width (RBC) [Ratio] 15.3 % 11.6-14.6 [facility] Erythrocyte distribution wid th standard deviationOrdered By: Carlos Cavazos on 07-20-2023 Erythrocyte distribution width (RBC) [Entitic vol] 48.1 fL 35.1-43.9 [facility] Hematocrit Auto (Bld) [Volum e fraction]Ordered By: Carlos Cavazos on 07-20-2023 Hematocrit (Bld) [Volume fraction] 39.9 % 40-54 [facility] Laboratory - Chemistry and C hemistry - challengeOrdered By: Carlos Cavazos on 07-20-2023 CO2 [Moles/Vol] 24.0 mmol/L 21.0-32.0 [facility] Urea nitrogen/Creatinine [Mass ratio] 24.6 mg/mg 10-20 [facility] Laboratory - Hematology and Cell countsOrdered By: Carlos Cavazos on 07-20-2023 MCH (RBC) [Entitic mass] 27.0 pg 27.0-32.0 [facility] MCHC (RBC) [Mass/Vol] 31.3 g/dL 32-36 [facility] Platelet mean volume (Bld) [Entitic vol] 10.7 fL 6.2-12.0 [facility] Platelets (Bld) [#/Vol] 260 10*3/uL 150-450 [facility] No Panel InformationOrdered By: Carlos Cavazos on 07-20-2023 Estimated GFR (MDRD) Amer 114 mL/min >60 [facility] Comment on above: GFR Calc Estimated GFR (MDRD) Non-Af Amer 94 mL/min >60 [facility] Comment on above: Non- GFR Calc RBC Auto (Bld) [#/Vol]Ordere d By: Carlos Cavazos on 07-20-2023 RBC (Bld) [#/Vol] 4.63 10*6/uL 4.6-6.2 [facility] Serum or plasma calcium oral urement (mass/volume)Ordered By: Carlos Cavazos on 07-20-2023 Calcium [Mass/Vol] 8.6 mg/dL 8.5-10.1 [facility] Serum or plasma creatinine m easurement (mass/volume)Ordered By: Carlos Cavazos on 07-20-2023 Creatinine [Mass/Vol] 0.85 mg/dL 0.70-1.30 [facility] Comment on above: The validity of the calculated GFR & GFRAA in patients over 70 years has not been determined. Clinical correlation is essential. Serum or plasma urea nitroge n measurement (mass/volume)Ordered By: Carlos Cavazos on 07-20-2023 Urea nitrogen [Mass/Vol] 21 mg/dL 7-18 [facility] Thin prep Papanicolaou smear with manual screeningOrdered By: Carlos Cavazos on 07-20-2023 Thin prep Papanicolaou smear with manual screening 5 5-15 [facility] Basophil percentageOrdered B y: Carlos Cavazos on 07-18-2023 Chloride [Moles/Vol] 102 mmol/L 98-107 [facility] Glucose [Mass/Vol] 96 mg/dL 74-106 [facility] Hemoglobin (Bld) [Mass/Vol] 12.3 g/dL 13.0-16.5 [facility] Potassium [Moles/Vol] 4.2 mmol/L 3.5-5.1 [facility] Sodium [Moles/Vol] 136 mmol/L 136-145 [facility] WBC (Bld) [#/Vol] 14.7 10*3/uL 4.4-11.0 [facility] Determination of erythrocyte mean corpuscular volume (MCV)Ordered By: Carlos Cavazos on 07-18-2023 MCV (RBC) [Entitic vol] 85.4 fL 80-94 [facility] Erythrocyte distribution wid th ratioOrdered By: Carlos Cavazos on 07-18-2023 Erythrocyte distribution width (RBC) [Ratio] 15.1 % 11.6-14.6 [facility] Erythrocyte distribution wid th standard deviationOrdered By: Carlos Cavazos on 07-18-2023 Erythrocyte distribution width (RBC) [Entitic vol] 47.3 fL 35.1-43.9 [facility] Hematocrit Auto (Bld) [Volum e fraction]Ordered By: Carlos Cavazos on 07-18-2023 Hematocrit (Bld) [Volume fraction] 39.3 % 40-54 [facility] Laboratory - Chemistry and C hemistry - challengeOrdered By: Carlos Cavazos on 07-18-2023 CO2 [Moles/Vol] 27.0 mmol/L 21.0-32.0 [facility] Urea nitrogen/Creatinine [Mass ratio] 24.4 mg/mg 10-20 [facility] Laboratory - Hematology and Cell countsOrdered By: Carlos Cavazos on 07-18-2023 MCH (RBC) [Entitic mass] 26.7 pg 27.0-32.0 [facility] MCHC (RBC) [Mass/Vol] 31.3 g/dL 32-36 [facility] Platelet mean volume (Bld) [Entitic vol] 10.3 fL 6.2-12.0 [facility] Platelets (Bld) [#/Vol] 288 10*3/uL 150-450 [facility] No Panel InformationOrdered By: Carlos Cavazos on 07-18-2023 Estimated GFR (MDRD) Amer 113 mL/min >60 [facility] Comment on above: GFR Calc Estimated GFR (MDRD) Non-Af Amer 93 mL/min >60 [facility] Comment on above: Non- GFR Calc RBC Auto (Bld) [#/Vol]Ordere d By: Carlos Cavazos on 07-18-2023 RBC (Bld) [#/Vol] 4.60 10*6/uL 4.6-6.2 [facility] Serum or plasma calcium oral urement (mass/volume)Ordered By: Carlos Cavazos on 07-18-2023 Calcium [Mass/Vol] 8.9 mg/dL 8.5-10.1 [facility] Serum or plasma creatinine m easurement (mass/volume)Ordered By: Carlos Cavazos on 07-18-2023 Creatinine [Mass/Vol] 0.86 mg/dL 0.70-1.30 [facility] Comment on above: The validity of the calculated GFR & GFRAA in patients over 70 years has not been determined. Clinical correlation is essential. Serum or plasma urea nitroge n measurement (mass/volume)Ordered By: Carlos Cavazos on 07-18-2023 Urea nitrogen [Mass/Vol] 21 mg/dL 7-18 [facility] Thin prep Papanicolaou smear with manual screeningOrdered By: Carlos Cavazos on 07-18-2023 Thin prep Papanicolaou smear with manual screening 7 5-15 [facility] Basophil percentageOrdered B y: Carlos Cavazos on 07-17-2023 Basophil percentage 0-5 SEEN /hpf 0-[address] [facility] Bilirubin Test strip Ql (U)O rdered By: Carlos Cavazos on 07-17-2023 Bilirubin Ql (U) Negative Negative [facility] Calcium oxalate crystals det ection in urine sediment by light microscopyOrdered By: Carlos Cavazos on 07-17-2023 Calcium oxalate crystals LM Ql (Urine sed) 1+ /hpf [facility] Culture, urineOrdered By: Sharif Crouch on 07-17-2023 Bacteria identified Cx Nom (U) Positive [facility] Ketones Test strip Ql (U)Ord ered By: Carlos Cavazos on 07-17-2023 Ketones Ql (U) Negative Negative [facility] Mucus LM Ql (Urine sed)Order ed By: Carlos Cavazos on 07-17-2023 Mucus Ql (Urine sed) 0 SEEN /hpf [facility] Nitrite Test strip Ql (U)Ord ered By: Carlos Cavazos on 07-17-2023 Nitrite Ql (U) Negative Negative [facility] No Panel InformationOrdered By: Carlos Cavazos on 07-17-2023 Urine RBC 0 SEEN /hpf 0-5 [facility] Protein Test strip Ql (U)Ord ered By: Carlos Cavazos on 07-17-2023 Protein Ql (U) Negative Negative [facility] Squamous epithelial cells de tection in urine sediment by light microscopyOrdered By: Carlos Cavazos on 07-17-2023 Epithelial cells.squamous LM Ql (Urine sed) 0-5 SEEN /hpf 0-5 [facility] Urine blood detectionOrdered By: Carlos Cavazos on 07-17-2023 RBC Ql (U) Negative Negative [facility] Urine clarityOrdered By: Ted Cavazos on 07-17-2023 Clarity (U) Clear Clear [facility] Urine color determinationOrd ered By: Carlos Cavazos on 07-17-2023 Color (U) Yellow Yellow [facility] Urine glucose detectionOrder ed By: Carlos Cavazos on 07-17-2023 Glucose Ql (U) Normal mg/dl Normal [facility] Urine leukocyte esterase det ection by dipstickOrdered By: Carlos Cavazos on 07-17-2023 Leukocyte esterase Test strip Ql (U) 25 /ul Negative [facility] Urine pHOrdered By: Carlos flores on 07-17-2023 pH (U) 6.0 [pH] 5.0 - 8.0 [facility] Urine sediment bacteria coun t by microscopy (number/high power field)Ordered By: Carlos Cavazos on 07-17-2023 Bacteria LM.HPF (Urine sed) [#/Area] 0 /[HPF] None Seen [facility] Urine specific gravity measu rementOrdered By: Carlos Cavazos on 07-17-2023 Specific gravity (U) [Rel density] 1.020 1.002-1.030 [facility] Urine urobilinogen measureme ntOrdered By: Carlos Cavazos on 07-17-2023 Urobilinogen Ql (U) Normal mg/dl Normal [facility] Absolute lymphocyte countOrd ered By: Carlos Cavazos on 07-16-2023 Lymphocytes Auto (Unsp spec) [#/Vol] 6.02 10*3/uL 0.83-4.51 [facility] Automated lymphocyte count a s percentage of total leukocytesOrdered By: Carlos Cavazos on 07-16-2023 Lymphocytes/100 WBC Auto (Unsp spec) 49.1 % 19-41 [facility] Basophil percentageOrdered B y: Carlos Cavazos on 07-16-2023 Basophils/100 WBC (Bld) 0.6 % 0-1 [facility] Chloride [Moles/Vol] 105 mmol/L 98-107 [facility] Eosinophils/100 WBC (Bld) 2.0 % 0-5 [facility] Glucose [Mass/Vol] 93 mg/dL 74-106 [facility] Hemoglobin (Bld) [Mass/Vol] 12.1 g/dL 13.0-16.5 [facility] Monocytes/100 WBC (Bld) 5.3 % 0-10 [facility] Neutrophils (Bld) [#/Vol] 5.2 10*3/uL 2.0-7.7 [facility] Neutrophils/100 WBC (Bld) 42.8 % 47-70 [facility] Potassium [Moles/Vol] 4.3 mmol/L 3.5-5.1 [facility] Sodium [Moles/Vol] 138 mmol/L 136-145 [facility] WBC (Bld) [#/Vol] 12.3 10*3/uL 4.4-11.0 [facility] Blood manual differential co mment interpretation (narrative result)Ordered By: Carlos Cavazos on 07-16-2023 Manual differential comment Shemar (Bld) [Interp] SCANNED [facility] Determination of erythrocyte mean corpuscular volume (MCV)Ordered By: Carlos Cavazos on 07-16-2023 MCV (RBC) [Entitic vol] 86.8 fL 80-94 [facility] Erythrocyte distribution wid th ratioOrdered By: Carlos Cavazos on 07-16-2023 Erythrocyte distribution width (RBC) [Ratio] 15.3 % 11.6-14.6 [facility] Erythrocyte distribution wid th standard deviationOrdered By: Carlos Cavazos on 07-16-2023 Erythrocyte distribution width (RBC) [Entitic vol] 48.9 fL 35.1-43.9 [facility] Hematocrit Auto (Bld) [Volum e fraction]Ordered By: Carlos Cavazos on 07-16-2023 Hematocrit (Bld) [Volume fraction] 38.7 % 40-54 [facility] Immature granulocytes/100 WB C Auto (Bld)Ordered By: Carlos Cavazos on 07-16-2023 Immature granulocytes/100 WBC (Bld) 0.200 % 0.0-0.9 [facility] Comment on above: IG% - Immature Granu locytes (promyelocytes, myelocytes and metamyelocytes) > 1% indicates that a LEFT SHIFT is Present. Laboratory - Chemistry and C hemistry - challengeOrdered By: Carlos Cavazos on 07-16-2023 CO2 [Moles/Vol] 25.0 mmol/L 21.0-32.0 [facility] Urea nitrogen/Creatinine [Mass ratio] 21.0 mg/mg 10-20 [facility] Laboratory - CoagulationOrde red By: Carlos Cavazos on 07-16-2023 INR Coag (Bld) [Relative time] 2.4 {INR} [facility] PT Coag (PPP) [Time] 25.7 s 11.7-14.9 [facility] Laboratory - Hematology and Cell countsOrdered By: Carlos Cavazos on 07-16-2023 MCH (RBC) [Entitic mass] 27.1 pg 27.0-32.0 [facility] MCHC (RBC) [Mass/Vol] 31.3 g/dL 32-36 [facility] Nucleated RBC/100 WBC (Bld) [Ratio] 0 % 0-5 [facility] Platelet mean volume (Bld) [Entitic vol] 10.5 fL 6.2-12.0 [facility] Platelets (Bld) [#/Vol] 289 10*3/uL 150-450 [facility] No Panel InformationOrdered By: Carlos Cavazos on 07-16-2023 Estimated GFR (MDRD) Amer 106 mL/min >60 [facility] Comment on above: GFR Calc Estimated GFR (MDRD) Non-Af Amer 88 mL/min >60 [facility] Comment on above: Non- GFR Calc Reactive Lymphocytes 1+ [facility] RBC Auto (Bld) [#/Vol]Ordere d By: Carlos Cavazos on 07-16-2023 RBC (Bld) [#/Vol] 4.46 10*6/uL 4.6-6.2 [facility] Serum or plasma calcium oral urement (mass/volume)Ordered By: Carlos Cavazos on 07-16-2023 Calcium [Mass/Vol] 9.0 mg/dL 8.5-10.1 [facility] Serum or plasma creatinine m easurement (mass/volume)Ordered By: Carlos Cavazos on 07-16-2023 Creatinine [Mass/Vol] 0.90 mg/dL 0.70-1.30 [facility] Comment on above: The validity of the calculated GFR & GFRAA in patients over 70 years has not been determined. Clinical correlation is essential. Serum or plasma urea nitroge n measurement (mass/volume)Ordered By: Carlos Cavazos on 07-16-2023 Urea nitrogen [Mass/Vol] 19 mg/dL 7-18 [facility] Thin prep Papanicolaou smear with manual screeningOrdered By: Carlos Cavazos on 07-16-2023 Thin prep Papanicolaou smear with manual screening 8 5-15 [facility] Absolute lymphocyte countOrd ered By: Carlos Cavazos on 07-13-2023 Lymphocytes Auto (Unsp spec) [#/Vol] 5.44 10*3/uL 0.83-4.51 [facility] Automated lymphocyte count a s percentage of total leukocytesOrdered By: Carlos Cavazos on 07-13-2023 Lymphocytes/100 WBC Auto (Unsp spec) 47.3 % 19-41 [facility] Basophil percentageOrdered B y: Carlos Cavazos on 07-13-2023 Basophils/100 WBC (Bld) 0.4 % 0-1 [facility] Chloride [Moles/Vol] 107 mmol/L 98-107 [facility] Eosinophils/100 WBC (Bld) 1.7 % 0-5 [facility] Glucose [Mass/Vol] 96 mg/dL 74-106 [facility] Hemoglobin (Bld) [Mass/Vol] 13.5 g/dL 13.0-16.5 [facility] Monocytes/100 WBC (Bld) 4.3 % 0-10 [facility] Neutrophils (Bld) [#/Vol] 5.3 10*3/uL 2.0-7.7 [facility] Neutrophils/100 WBC (Bld) 46.0 % 47-70 [facility] Potassium [Moles/Vol] 4.0 mmol/L 3.5-5.1 [facility] Sodium [Moles/Vol] 139 mmol/L 136-145 [facility] WBC (Bld) [#/Vol] 11.5 10*3/uL 4.4-11.0 [facility] Determination of erythrocyte mean corpuscular volume (MCV)Ordered By: Carlos Cavazos on 07-13-2023 MCV (RBC) [Entitic vol] 86.1 fL 80-94 [facility] Erythrocyte distribution wid th ratioOrdered By: Carlos Cavazos on 07-13-2023 Erythrocyte distribution width (RBC) [Ratio] 15.2 % 11.6-14.6 [facility] Erythrocyte distribution wid th standard deviationOrdered By: Carlos Cavazos on 07-13-2023 Erythrocyte distribution width (RBC) [Entitic vol] 48.0 fL 35.1-43.9 [facility] Hematocrit Auto (Bld) [Volum e fraction]Ordered By: Carlos Cavazos on 07-13-2023 Hematocrit (Bld) [Volume fraction] 42.2 % 40-54 [facility] Immature granulocytes/100 WB C Auto (Bld)Ordered By: Carlos Cavazos on 07-13-2023 Immature granulocytes/100 WBC (Bld) 0.300 % 0.0-0.9 [facility] Comment on above: IG% - Immature Granu locytes (promyelocytes, myelocytes and metamyelocytes) > 1% indicates that a LEFT SHIFT is Present. Laboratory - Chemistry and C hemistry - challengeOrdered By: Carlos Cavazos on 07-13-2023 CO2 [Moles/Vol] 26.0 mmol/L 21.0-32.0 [facility] Urea nitrogen/Creatinine [Mass ratio] 21.8 mg/mg 10-20 [facility] Laboratory - Hematology and Cell countsOrdered By: Carlos Cavazos on 07-13-2023 MCH (RBC) [Entitic mass] 27.6 pg 27.0-32.0 [facility] MCHC (RBC) [Mass/Vol] 32.0 g/dL 32-36 [facility] Nucleated RBC/100 WBC (Bld) [Ratio] 0 % 0-5 [facility] Platelet mean volume (Bld) [Entitic vol] 10.1 fL 6.2-12.0 [facility] Platelets (Bld) [#/Vol] 279 10*3/uL 150-450 [facility] No Panel InformationOrdered By: Carlos Cavazos on 07-13-2023 Estimated GFR (MDRD) Amer 118 mL/min >60 [facility] Comment on above: GFR Calc Estimated GFR (MDRD) Non-Af Amer 98 mL/min >60 [facility] Comment on above: Non- GFR Calc Levetiracetam (Keppra) Level 25.5 ug/mL 10.0-40.0 [facility] Comment on above: Performed at: [address] [id number] Director: Alpesh Vázquez MD, Phone: [phone] RBC Auto (Bld) [#/Vol]Ordere d By: Carlos Cavazos on 07-13-2023 RBC (Bld) [#/Vol] 4.90 10*6/uL 4.6-6.2 [facility] Serum or plasma calcium oral urement (mass/volume)Ordered By: Carlos Cavazos on 07-13-2023 Calcium [Mass/Vol] 9.1 mg/dL 8.5-10.1 [facility] Serum or plasma creatinine m easurement (mass/volume)Ordered By: Carlos Cavazos on 07-13-2023 Creatinine [Mass/Vol] 0.82 mg/dL 0.70-1.30 [facility] Comment on above: The validity of the calculated GFR & GFRAA in patients over 70 years has not been determined. Clinical correlation is essential. Serum or plasma urea nitroge n measurement (mass/volume)Ordered By: Carlos Cavazos on 07-13-2023 Urea nitrogen [Mass/Vol] 18 mg/dL 7-18 [facility] Thin prep Papanicolaou smear with manual screeningOrdered By: Carlos Cavazos on 07-13-2023 Thin prep Papanicolaou smear with manual screening 6 5-15 [facility] No Panel InformationOrdered By: Carlos Cavazos on 07-12-2023 Valproic Acid (Depakene) Level < 3 ug/mL 50-100 [facility] Laboratory - CoagulationOrde red By: Carlos Cavazos on 07-05-2023 INR Coag (Bld) [Relative time] 2.4 {INR} [facility] PT Coag (PPP) [Time] 26.3 s 11.7-14.9 [facility] Laboratory - CoagulationOrde red By: Carlos Cavazos on 07-02-2023 INR Coag (Bld) [Relative time] 1.5 {INR} [facility] PT Coag (PPP) [Time] 18.5 s 11.7-14.9 [facility] Laboratory - CoagulationOrde red By: Carlos Cavazos on 06-28-2023 INR Coag (Bld) [Relative time] 1.7 {INR} [facility] PT Coag (PPP) [Time] 20.5 s 11.7-14.9 [facility] 36on 06-25-2023 [facility] scheduled 07/10/23 Guy has to be made further out, pt being transported by cot. Changed appt to 08/13/23 per [facility] only avail time for transport, first avail with DR Buck at 10:00 AM. [facility] Laboratory - CoagulationOrde red By: Carlos Cavazos on 06-25-2023 INR Coag (Bld) [Relative time] 3.8 {INR} [facility] PT Coag (PPP) [Time] 38.2 s 11.7-14.9 [facility] Laboratory - CoagulationOrde red By: Carlos Cavazos on 06-21-2023 INR Coag (Bld) [Relative time] 3.2 {INR} [facility] PT Coag (PPP) [Time] 32.9 s 11.7-14.9 [facility] No Panel InformationOrdered By: Carlos Cavazos on 06-13-2023 Valproic Acid (Depakene) Level < 3 ug/mL 50-100 [facility] Laboratory - CoagulationOrde red By: Carlos Cavazos on 06-06-2023 PT Coag (PPP) [Time] 30.5 s 11.7-14.9 [facility] Platelet poor plasma interna tional normalized ratio (INR)Ordered By: Carlos Cavazos on 06-06-2023 INR Coag (PPP) [Relative time] 2.9 {INR} [facility] International normalized rat io (INR) calculationOrdered By: Carlos Cavazos on 05-23-2023 INR Coag (PPP) [Relative time] 2.6 {INR} [facility] Laboratory - CoagulationOrde red By: Carlos Cavazos on 05-23-2023 PT Coag (PPP) [Time] 27.7 s 11.7-14.9 [facility] Laboratory - CoagulationOrde red By: Carlos Cavazos on 05-09-2023 PT Coag (PPP) [Time] 24.1 s 11.7-14.9 [facility] Whole blood international no rmalized ratio (INR)Ordered By: Carlos Cavazos on 05-09-2023 INR Coag (Bld) [Relative time] 2.1 {INR} [facility] Laboratory - CoagulationOrde red By: Carlos Cavazos on 04-23-2023 PT Coag (PPP) [Time] 26.4 s 11.7-14.9 [facility] Whole blood international no rmalized ratio (INR)Ordered By: Carlos Cavazos on 04-23-2023 INR Coag (Bld) [Relative time] 2.4 {INR} [facility] INR in Blood by Coagulation assayOrdered By: Carlos Cavazos on 04-09-2023 INR Coag (Bld) [Relative time] 2.1 {INR} [facility] Laboratory - CoagulationOrde red By: Carlos Cavazos on 04-09-2023 PT Coag (PPP) [Time] 23.9 s 11.7-14.9 [facility] INR in Blood by Coagulation assayOrdered By: Carlos Cavazos on 04-02-2023 INR Coag (Bld) [Relative time] 2.2 {INR} [facility] Laboratory - CoagulationOrde red By: Carlos Cavazos on 04-02-2023 PT Coag (PPP) [Time] 24.5 s 11.7-14.9 [facility] INR in Blood by Coagulation assayOrdered By: Carlos Cavazos on 03-26-2023 INR Coag (Bld) [Relative time] 1.7 {INR} [facility] Laboratory - CoagulationOrde red By: Carlos Cavazos on 03-26-2023 PT Coag (PPP) [Time] 19.9 s 11.7-14.9 [facility] INR in Blood by Coagulation assayOrdered By: Carlos Cavazos on 03-22-2023 INR Coag (Bld) [Relative time] 1.3 {INR} [facility] Laboratory - CoagulationOrde red By: Carlos Cavazos on 03-22-2023 PT Coag (PPP) [Time] 16.4 s 11.7-14.9 [facility] INR in Blood by Coagulation assayOrdered By: Carlos Cavazos on 03-08-2023 INR Coag (Bld) [Relative time] 2.0 {INR} [facility] Laboratory - CoagulationOrde red By: Carlos Cavazos on 03-08-2023 PT Coag (PPP) [Time] 22.5 s 11.7-14.9 [facility] Laboratory - CoagulationOrde red By: Carlos Cavazos on 02-22-2023 INR Coag (Bld) [Relative time] 2.2 {INR} [facility] Comment on above: Critical Value > 4.0 Whole blood prothrombin time Ordered By: Carlos Cavazos on 02-22-2023 PT Coag (Bld) [Time] 24.0 s 11.7-14.9 [facility] INR in Blood by Coagulation assayOrdered By: Cliff Bruner on 02-15-2023 INR Coag (Bld) [Relative time] 2.0 {INR} [facility] Laboratory - CoagulationOrde red By: Cliff Bruner on 02-15-2023 PT Coag (PPP) [Time] 22.8 s 11.7-14.9 [facility] INR in Blood by Coagulation assayOrdered By: Carlos Cavazos on 02-08-2023 INR Coag (Bld) [Relative time] 2.1 {INR} [facility] Laboratory - CoagulationOrde red By: Carlos Cavazos on 02-08-2023 PT Coag (PPP) [Time] 23.5 s 11.7-14.9 [facility] INR in Blood by Coagulation assayOrdered By: Carlos Cavazos on 01-31-2023 INR Coag (Bld) [Relative time] 2.0 {INR} [facility] Laboratory - CoagulationOrde red By: Carlos Cavazos on 01-31-2023 PT Coag (PPP) [Time] 22.4 s 11.7-14.9 [facility] Laboratory - CoagulationOrde red By: Carlos Cavazos on 01-29-2023 INR Coag (Bld) [Relative time] 1.8 {INR} [facility] Comment on above: Critical Value > 4.0 Whole blood prothrombin time Ordered By: Carlos Cavazos on 01-29-2023 PT Coag (Bld) [Time] 19.9 s 11.7-14.9 [facility] INR in Blood by Coagulation assayOrdered By: Carlos Cavazos on 01-26-2023 INR Coag (Bld) [Relative time] 1.5 {INR} [facility] Laboratory - CoagulationOrde red By: Carlos Cavazos on 01-26-2023 PT Coag (PPP) [Time] 18.3 s 11.7-14.9 [facility] INR in Blood by Coagulation assayOrdered By: Carlos Cavazos on 01-24-2023 INR Coag (Bld) [Relative time] 1.3 {INR} [facility] Laboratory - CoagulationOrde red By: Carlos Cavazos on 01-24-2023 PT Coag (PPP) [Time] 16.2 s 11.7-14.9 [facility] Basophil percentageOrdered B y: Carlos Cavazos on 01-22-2023 Basophil percentage 0 SEEN /hpf 0-5 [facility] Bilirubin Test strip Ql (U)O rdered By: Carlos Cavazos on 01-22-2023 Bilirubin Ql (U) Negative Negative [facility] Calcium oxalate crystals det ection in urine sediment by light microscopyOrdered By: Carlos Cavazos on 01-22-2023 Calcium oxalate crystals LM Ql (Urine sed) 1+ /hpf [facility] Culture, urineOrdered By: Sharif Crouch on 01-22-2023 Bacteria identified Cx Nom (U) Positive [facility] Ketones Test strip Ql (U)Ord ered By: Carlos Cavazos on 01-22-2023 Ketones Ql (U) Negative Negative [facility] Mucus LM Ql (Urine sed)Order ed By: Carlos Cavazos on 01-22-2023 Mucus Ql (Urine sed) 1+ /hpf [facility] Nitrite Test strip Ql (U)Ord ered By: Carlos Cavazos on 01-22-2023 Nitrite Ql (U) Negative Negative [facility] Protein Test strip Ql (U)Ord ered By: Carlos Cavazos on 01-22-2023 Protein Ql (U) Negative Negative [facility] Squamous epithelial cells de tection in urine sediment by light microscopyOrdered By: Carlos Cavazos on 01-22-2023 Epithelial cells.squamous LM Ql (Urine sed) 0 SEEN /hpf 0-5 [facility] Urine blood detectionOrdered By: Carlos Cavazos on 01-22-2023 RBC Ql (U) Negative Negative [facility] RBC Ql (U) 0 SEEN /hpf 0-5 [facility] Urine clarityOrdered By: Ted Cavazos on 01-22-2023 Clarity (U) Sl. Cloudy Clear [facility] Urine color determinationOrd ered By: Carlos Cavazos on 01-22-2023 Color (U) Yellow Yellow [facility] Urine glucose detectionOrder ed By: Carlos Cavazos on 01-22-2023 Glucose Ql (U) Normal mg/dl Normal [facility] Urine leukocyte esterase det ection by dipstickOrdered By: Carlos Cavazos on 01-22-2023 Leukocyte esterase Test strip Ql (U) Negative Negative [facility] Urine pHOrdered By: Carlos flores on 01-22-2023 pH (U) 5.0 [pH] 5.0 - 8.0 [facility] Urine sediment bacteria coun t by microscopy (number/high power field)Ordered By: Carlos Cavazos on 01-22-2023 Bacteria LM.HPF (Urine sed) [#/Area] 2 /[HPF] None Seen [facility] Urine specific gravity measu rementOrdered By: Carlos Cavazos on 01-22-2023 Specific gravity (U) [Rel density] 1.025 1.002-1.030 [facility] Urobilinogen Auto test strip Ql (U)Ordered By: Carlos Cavazos on 01-22-2023 Urobilinogen Ql (U) Normal mg/dl Normal [facility] INR in Blood by Coagulation assayOrdered By: Carlos Cavazos on 01-10-2023 INR Coag (Bld) [Relative time] 2.0 {INR} [facility] Laboratory - CoagulationOrde red By: Carlos Cavazos on 01-10-2023 PT Coag (PPP) [Time] 22.6 s 11.7-14.9 [facility] INR in Blood by Coagulation assayOrdered By: Carlos Cavazos on 12-27-2022 INR Coag (Bld) [Relative time] 2.1 {INR} [facility] Laboratory - CoagulationOrde red By: Carlos Cavazos on 12-27-2022 PT Coag (PPP) [Time] 24.1 s 11.7-14.9 [facility] INR in Blood by Coagulation assayOrdered By: Carlos Cavazos on 12-21-2022 INR Coag (Bld) [Relative time] 2.4 {INR} [facility] Laboratory - CoagulationOrde red By: Carlos Cavazos on 12-21-2022 PT Coag (PPP) [Time] 26.7 s 11.7-14.9 [facility] Laboratory - CoagulationOrde red By: Carlos Cavazos on 12-14-2022 INR Coag (Bld) [Relative time] 2.3 {INR} [facility] Comment on above: Critical Value > 4.0 Whole blood prothrombin time Ordered By: Carlos Cavazos on 12-14-2022 PT Coag (Bld) [Time] 25.2 s 11.7-14.9 [facility] Laboratory - CoagulationOrde red By: Carlos Cavazos on 12-07-2022 INR Coag (Bld) [Relative time] 2.5 {INR} [facility] Comment on above: Critical Value > 4.0 Whole blood prothrombin time Ordered By: Carlos Cavazos on 12-07-2022 PT Coag (Bld) [Time] 26.9 s 11.7-14.9 [facility] Amorphous sediment detection in urine sediment by light microscopyOrdered By: Carlos Cavazos on 11-24-2022 Amorphous sediment LM Ql (Urine sed) 1+ [facility] Basophil percentageOrdered B y: Carlos Cavazos on 11-24-2022 Basophil percentage 0 SEEN /hpf 0-5 [facility] Bilirubin [Mass/Vol] 0.30 mg/dL 0.20-1.00 [facility] Comment on above: For patients on eltr ombopag therapy, use of Dimension [place] TBIL is not recommended. Chloride [Moles/Vol] 107 mmol/L 98-107 [facility] Glucose [Mass/Vol] 95 mg/dL 74-106 [facility] Potassium [Moles/Vol] 4.2 mmol/L 3.5-5.1 [facility] Protein [Mass/Vol] 6.9 g/dL 6.4-8.2 [facility] Sodium [Moles/Vol] 138 mmol/L 136-145 [facility] WBC (Bld) [#/Vol] 10.4 10*3/uL 4.4-11.0 [facility] Bilirubin Test strip Ql (U)O rdered By: Carlos Cavazos on 11-24-2022 Bilirubin Ql (U) Negative Negative [facility] Blood erythrocytes count (nu mber/volume)Ordered By: Carlos Cavazos on 11-24-2022 RBC (Bld) [#/Vol] 4.44 10*6/uL 4.6-6.2 [facility] Blood hemoglobin measurement (mass/volume)Ordered By: Carlos Cavazos on 11-24-2022 Hemoglobin (Bld) [Mass/Vol] 11.8 g/dL 13.0-16.5 [facility] Blood platelet mean volumeOr dered By: Carlos Caavzos on 11-24-2022 Platelet mean volume (Bld) [Entitic vol] 9.7 fL 6.2-12.0 [facility] Calcium oxalate crystals det ection in urine sediment by light microscopyOrdered By: Carlos Cavazos on 11-24-2022 Calcium oxalate crystals LM Ql (Urine sed) RARE /hpf [facility] Culture, urineOrdered By: Sharif Crouch on 11-24-2022 Bacteria identified Cx Nom (U) Positive [facility] Determination of erythrocyte mean corpuscular volume (MCV)Ordered By: Carlos Cavazos on 11-24-2022 MCV (RBC) [Entitic vol] 84.7 fL 80-94 [facility] Hematocrit Auto (Bld) [Volum e fraction]Ordered By: Carlos Cavazos on 11-24-2022 Hematocrit (Bld) [Volume fraction] 37.6 % 40-54 [facility] Ketones Test strip Ql (U)Ord ered By: Carlos Cavazos on 11-24-2022 Ketones Ql (U) Negative Negative [facility] Laboratory - Chemistry and C hemistry - challengeOrdered By: Carlos Cavazos on 11-24-2022 ALP [Catalytic activity/Vol] 103 U/L 45-117 [facility] ALT [Catalytic activity/Vol] 14 U/L 16-61 [facility] CO2 [Moles/Vol] 26.0 mmol/L 21.0-32.0 [facility] Globulin (S) [Mass/Vol] 4.0 g/dL 2.2-4.2 [facility] Urea nitrogen/Creatinine [Mass ratio] 24.1 mg/mg 10-20 [facility] Laboratory - Hematology and Cell countsOrdered By: Carlos Cavazos on 11-24-2022 Erythrocyte distribution width (RBC) [Entitic vol] 49.4 fL 35.1-43.9 [facility] Erythrocyte distribution width (RBC) [Ratio] 16.0 % 11.6-14.6 [facility] MCH (RBC) [Entitic mass] 26.6 pg 27.0-32.0 [facility] MCHC Auto (RBC) [Mass/Vol]Or dered By: Carlos Cavazos on 11-24-2022 MCHC (RBC) [Mass/Vol] 31.4 g/dL 32-36 [facility] Mucus LM Ql (Urine sed)Order ed By: Carlos Cavazos on 11-24-2022 Mucus Ql (Urine sed) 0 SEEN /hpf [facility] Nitrite Test strip Ql (U)Ord ered By: Carlos Cavazos on 11-24-2022 Nitrite Ql (U) Negative Negative [facility] No Panel InformationOrdered By: Carlos Cavazos on 11-24-2022 Estimated GFR (MDRD) Amer 118 mL/min >60 [facility] Comment on above: GFR Calc Estimated GFR (MDRD) Non-Af Amer 97 mL/min >60 [facility] Comment on above: Non- GFR Calc Platelets bldOrdered By: Pet noe Cavazos on 11-24-2022 Platelets (Bld) [#/Vol] 309 10*3/uL 150-450 [facility] Protein Test strip Ql (U)Ord ered By: Carlos Cavazos on 11-24-2022 Protein Ql (U) Negative Negative [facility] Serum or plasma albumin oral urement (mass/volume)Ordered By: Carlos Cavazos on 11-24-2022 Albumin [Mass/Vol] 2.9 g/dL 3.2-5.0 [facility] Serum or plasma albumin/glob ulin mass ratioOrdered By: Carlos Cavazos on 11-24-2022 Albumin/Globulin [Mass ratio] 0.7 {ratio} 0.9-2.4 [facility] Serum or plasma calcium oral urement (mass/volume)Ordered By: Carlos Cavazos on 11-24-2022 Calcium [Mass/Vol] 8.7 mg/dL 8.5-10.1 [facility] Serum or plasma creatinine m easurement (mass/volume)Ordered By: Carlos Cavazos on 11-24-2022 Creatinine [Mass/Vol] 0.83 mg/dL 0.70-1.30 [facility] Comment on above: The validity of the calculated GFR & GFRAA in patients over 70 years has not been determined. Clinical correlation is essential. Serum or plasma urea nitroge n measurement (mass/volume)Ordered By: Carlos Cavazos on 11-24-2022 Urea nitrogen [Mass/Vol] 20 mg/dL 7-18 [facility] Squamous epithelial cells de tection in urine sediment by light microscopyOrdered By: Carlos Cavazos on 11-24-2022 Epithelial cells.squamous LM Ql (Urine sed) 0 SEEN /hpf 0-5 [facility] Thin prep Papanicolaou smear with manual screeningOrdered By: Carlos Cavazos on 11-24-2022 Thin prep Papanicolaou smear with manual screening 10 U/L 15-37 [facility] Thin prep Papanicolaou smear with manual screening 5 5-15 [facility] Urine blood detectionOrdered By: Carlos Cavazos on 11-24-2022 RBC Ql (U) Negative Negative [facility] RBC Ql (U) 0 SEEN /hpf 0-5 [facility] Urine clarityOrdered By: Ted Cavazos on 11-24-2022 Clarity (U) Clear Clear [facility] Urine color determinationOrd ered By: Carlos Cavazos on 11-24-2022 Color (U) Yellow Yellow [facility] Urine glucose detectionOrder ed By: Carlos Cavazos on 11-24-2022 Glucose Ql (U) Normal mg/dl Normal [facility] Urine leukocyte esterase det ection by dipstickOrdered By: Carlos Cavazos on 11-24-2022 Leukocyte esterase Test strip Ql (U) Negative Negative [facility] Urine pHOrdered By: Carlos flores on 11-24-2022 pH (U) 7.0 [pH] 5.0 - 8.0 [facility] Urine sediment bacteria coun t by microscopy (number/high power field)Ordered By: Carlos Cavazos on 11-24-2022 Bacteria LM.HPF (Urine sed) [#/Area] 0 /[HPF] None Seen [facility] Urine specific gravity measu rementOrdered By: Carlos Cavazos on 11-24-2022 Specific gravity (U) [Rel density] 1.010 1.002-1.030 [facility] Urobilinogen Auto test strip Ql (U)Ordered By: Carlos Cavazos on 11-24-2022 Urobilinogen Ql (U) Normal mg/dl Normal [facility] Laboratory - CoagulationOrde red By: Carlos Cavazos on 11-23-2022 INR Coag (Bld) [Relative time] 2.2 {INR} [facility] Comment on above: Critical Value > 4.0 Whole blood prothrombin time Ordered By: Carlos Cavazos on 11-23-2022 PT Coag (Bld) [Time] 24.5 s 11.7-14.9 [facility] Basophil percentageOrdered B y: Carlos Cavazos on 11-22-2022 Chloride [Moles/Vol] 105 mmol/L 98-107 [facility] Glucose [Mass/Vol] 91 mg/dL 74-106 [facility] Potassium [Moles/Vol] 4.1 mmol/L 3.5-5.1 [facility] Sodium [Moles/Vol] 138 mmol/L 136-145 [facility] WBC (Bld) [#/Vol] 12.0 10*3/uL 4.4-11.0 [facility] Blood erythrocytes count (nu mber/volume)Ordered By: Carlos Cavazos on 11-22-2022 RBC (Bld) [#/Vol] 4.65 10*6/uL 4.6-6.2 [facility] Blood hemoglobin measurement (mass/volume)Ordered By: Carlos Cavazos on 11-22-2022 Hemoglobin (Bld) [Mass/Vol] 12.4 g/dL 13.0-16.5 [facility] Blood platelet mean volumeOr dered By: Carlos Cavazos on 11-22-2022 Platelet mean volume (Bld) [Entitic vol] 10.3 fL 6.2-12.0 [facility] Determination of erythrocyte mean corpuscular volume (MCV)Ordered By: Carlos Cavazos on 11-22-2022 MCV (RBC) [Entitic vol] 86.0 fL 80-94 [facility] Hematocrit Auto (Bld) [Volum e fraction]Ordered By: Carlos Cavazos on 11-22-2022 Hematocrit (Bld) [Volume fraction] 40.0 % 40-54 [facility] Laboratory - Chemistry and C hemistry - challengeOrdered By: Carlos Cavazos on 11-22-2022 CO2 [Moles/Vol] 25.0 mmol/L 21.0-32.0 [facility] Urea nitrogen/Creatinine [Mass ratio] 23.6 mg/mg 10-20 [facility] Laboratory - Hematology and Cell countsOrdered By: Carlos Cavazos on 11-22-2022 Erythrocyte distribution width (RBC) [Entitic vol] 50.0 fL 35.1-43.9 [facility] Erythrocyte distribution width (RBC) [Ratio] 15.9 % 11.6-14.6 [facility] MCH (RBC) [Entitic mass] 26.7 pg 27.0-32.0 [facility] MCHC Auto (RBC) [Mass/Vol]Or dered By: Carlos Cavazos on 11-22-2022 MCHC (RBC) [Mass/Vol] 31.0 g/dL 32-36 [facility] No Panel InformationOrdered By: Carlos Cavazos on 11-22-2022 Estimated GFR (MDRD) Amer 115 mL/min >60 [facility] Comment on above: GFR Calc Estimated GFR (MDRD) Non-Af Amer 95 mL/min >60 [facility] Comment on above: Non- GFR Calc Platelets bldOrdered By: Ted Cavazos on 11-22-2022 Platelets (Bld) [#/Vol] 320 10*3/uL 150-450 [facility] Serum or plasma calcium oral urement (mass/volume)Ordered By: Carlos Cavazos on 11-22-2022 Calcium [Mass/Vol] 8.7 mg/dL 8.5-10.1 [facility] Serum or plasma creatinine m easurement (mass/volume)Ordered By: Carlos Cavazos on 11-22-2022 Creatinine [Mass/Vol] 0.85 mg/dL 0.70-1.30 [facility] Comment on above: The validity of the calculated GFR & GFRAA in patients over 70 years has not been determined. Clinical correlation is essential. Serum or plasma urea nitroge n measurement (mass/volume)Ordered By: Carlos Cavazos on 11-22-2022 Urea nitrogen [Mass/Vol] 20 mg/dL 11-21 [facility] Thin prep Papanicolaou smear with manual screeningOrdered By: Carlos Cavazos on 11-22-2022 Thin prep Papanicolaou smear with manual screening 8 09-18 [facility] Laboratory - CoagulationOrde red By: Carlos Cavazos on 11-09-2022 INR Coag (Bld) [Relative time] 2.1 {INR} [facility] Comment on above: Critical Value > 4.0 Whole blood prothrombin time Ordered By: Carlos Cavazos on 11-09-2022 PT Coag (Bld) [Time] 22.6 s 11.7-14.9 [facility] Laboratory - CoagulationOrde red By: Carlos Cavazos on 10-26-2022 INR Coag (Bld) [Relative time] 2.6 {INR} [facility] Comment on above: Critical Value > 4.0 Whole blood prothrombin time Ordered By: Carlos Cavazos on 10-26-2022 PT Coag (Bld) [Time] 28.5 s 11.7-14.9 [facility] Laboratory - CoagulationOrde red By: Carlos Cavazos on 10-12-2022 INR Coag (Bld) [Relative time] 2.4 {INR} [facility] Comment on above: Critical Value > 4.0 Whole blood prothrombin time Ordered By: Carlos Cavazos on 10-12-2022 PT Coag (Bld) [Time] 26.4 s 11.7-14.9 [facility] Laboratory - CoagulationOrde red By: Carlos Cavazos on 10-05-2022 INR Coag (Bld) [Relative time] 2.6 {INR} [facility] Comment on above: Critical Value > 4.0 Whole blood prothrombin time Ordered By: Carlos Cavazos on 10-05-2022 PT Coag (Bld) [Time] 28.0 s 11.7-14.9 [facility] Laboratory - CoagulationOrde red By: Carlos Cavazos on 09-28-2022 INR Coag (Bld) [Relative time] 2.7 {INR} [facility] Comment on above: Critical Value > 4.0 Whole blood prothrombin time Ordered By: Carlos Cavazos on 09-28-2022 PT Coag (Bld) [Time] 28.9 s 11.7-14.9 [facility] Laboratory - CoagulationOrde red By: Carlos Cavazos on 09-14-2022 INR Coag (Bld) [Relative time] 2.5 {INR} [facility] Comment on above: Critical Value > 4.0 Whole blood prothrombin time Ordered By: Carlos Cavazos on 09-14-2022 PT Coag (Bld) [Time] 27.4 s 11.7-14.9 [facility] Laboratory - CoagulationOrde red By: Carlos Cavazos on 08-31-2022 INR Coag (Bld) [Relative time] 2.3 {INR} [facility] Comment on above: Critical Value > 4.0 Whole blood prothrombin time Ordered By: Carlos Cavazos on 08-31-2022 PT Coag (Bld) [Time] 25.4 s 11.7-14.9 [facility] Basophil percentageOrdered B y: Carlos Cavazos on 08-23-2022 Chloride [Moles/Vol] 108 mmol/L 98-107 [facility] Glucose [Mass/Vol] 86 mg/dL 74-106 [facility] Potassium [Moles/Vol] 4.3 mmol/L 3.5-5.1 [facility] Sodium [Moles/Vol] 136 mmol/L 136-145 [facility] WBC (Bld) [#/Vol] 10.0 10*3/uL 4.4-11.0 [facility] Blood erythrocytes count (nu mber/volume)Ordered By: Carlos Cavazos on 08-23-2022 RBC (Bld) [#/Vol] 4.77 10*6/uL 4.6-6.2 [facility] Blood hemoglobin measurement (mass/volume)Ordered By: Carlos Cavazos on 08-23-2022 Hemoglobin (Bld) [Mass/Vol] 12.5 g/dL 13.0-16.5 [facility] Blood platelet mean volumeOr dered By: Carlos Cavazos on 08-23-2022 Platelet mean volume (Bld) [Entitic vol] 11.0 fL 6.2-12.0 [facility] Determination of erythrocyte mean corpuscular volume (MCV)Ordered By: Carlos Cavazos on 08-23-2022 MCV (RBC) [Entitic vol] 84.3 fL 80-94 [facility] Hematocrit Auto (Bld) [Volum e fraction]Ordered By: Carlos Cavazos on 08-23-2022 Hematocrit (Bld) [Volume fraction] 40.2 % 40-54 [facility] Laboratory - Chemistry and C hemistry - challengeOrdered By: Carlos Cavazos on 08-23-2022 CO2 [Moles/Vol] 24.0 mmol/L 21.0-32.0 [facility] Urea nitrogen/Creatinine [Mass ratio] 22.8 mg/mg 10-20 [facility] Laboratory - Hematology and Cell countsOrdered By: Carlos Cavazos on 08-23-2022 Erythrocyte distribution width (RBC) [Entitic vol] 49.3 fL 35.1-43.9 [facility] Erythrocyte distribution width (RBC) [Ratio] 16.0 % 11.6-14.6 [facility] MCH (RBC) [Entitic mass] 26.2 pg 27.0-32.0 [facility] MCHC Auto (RBC) [Mass/Vol]Or dered By: Carlos Cavazos on 08-23-2022 MCHC (RBC) [Mass/Vol] 31.1 g/dL 32-36 [facility] No Panel InformationOrdered By: Carlos Cavazos on 08-23-2022 Estimated GFR (MDRD) Amer 134 mL/min >60 [facility] Comment on above: GFR Calc Estimated GFR (MDRD) Non-Af Amer 110 mL/min >60 [facility] Comment on above: Non- GFR Calc Platelets bldOrdered By: Pet er Maribelsaros on 08-23-2022 Platelets (Bld) [#/Vol] 268 10*3/uL 150-450 [facility] Serum or plasma calcium oral urement (mass/volume)Ordered By: Carlos Cavazos on 08-23-2022 Calcium [Mass/Vol] 9.1 mg/dL 8.5-10.1 [facility] Serum or plasma creatinine m easurement (mass/volume)Ordered By: Carlos Cavazos on 08-23-2022 Creatinine [Mass/Vol] 0.74 mg/dL 0.70-1.30 [facility] Comment on above: The validity of the calculated GFR & GFRAA in patients over 70 years has not been determined. Clinical correlation is essential. Serum or plasma urea nitroge n measurement (mass/volume)Ordered By: Carlos Cavazos on 08-23-2022 Urea nitrogen [Mass/Vol] 17 mg/dL 7-18 [facility] Thin prep Papanicolaou smear with manual screeningOrdered By: Carlos Cavazos on 08-23-2022 Thin prep Papanicolaou smear with manual screening 4 5-15 [facility] Laboratory - CoagulationOrde red By: Carlos Cavazos on 08-17-2022 INR Coag (Bld) [Relative time] 2.8 {INR} [facility] Comment on above: Critical Value > 4.0 Whole blood prothrombin time Ordered By: Carlos Cavazos on 08-17-2022 PT Coag (Bld) [Time] 29.6 s 11.7-14.9 [facility] Laboratory - CoagulationOrde red By: Carlos Cavazos on 08-14-2022 INR Coag (Bld) [Relative time] 3.9 {INR} [facility] Comment on above: Critical Value > 4.0 Whole blood prothrombin time Ordered By: Carlos Cavazos on 08-14-2022 PT Coag (Bld) [Time] 40.6 s 11.7-14.9 [facility] Laboratory - CoagulationOrde red By: Carlos Cavazos on 07-31-2022 INR Coag (Bld) [Relative time] 2.5 {INR} [facility] Comment on above: Critical Value > 4.0 Whole blood prothrombin time Ordered By: Carlos Cavazos on 07-31-2022 PT Coag (Bld) [Time] 26.8 s 11.7-14.9 [facility] INR in Blood by Coagulation assayOrdered By: Carlos Cavazos on 07-24-2022 INR Coag (Bld) [Relative time] 2.3 {INR} [facility] Laboratory - CoagulationOrde red By: Carlos Cavazos on 07-24-2022 PT Coag (PPP) [Time] 24.7 s 11.7-14.9 [facility] Laboratory - CoagulationOrde red By: Carlos Cavazos on 07-20-2022 INR Coag (Bld) [Relative time] 1.9 {INR} [facility] Comment on above: Critical Value > 4.0 Whole blood prothrombin time Ordered By: Carlos Cavazos on 07-20-2022 PT Coag (Bld) [Time] 20.6 s 11.7-14.9 [facility] Laboratory - CoagulationOrde red By: Carlos Cavazos on 07-17-2022 INR Coag (Bld) [Relative time] 1.3 {INR} [facility] Comment on above: Critical Value > 4.0 Whole blood prothrombin time Ordered By: Carlos Cavazos on 07-17-2022 PT Coag (Bld) [Time] 15.9 s 11.7-14.9 [facility] Basophil percentageOrdered B y: Carlos Cavazos on 07-11-2022 Chloride [Moles/Vol] 105 mmol/L 98-107 [facility] Glucose [Mass/Vol] 97 mg/dL 74-106 [facility] Potassium [Moles/Vol] 3.9 mmol/L 3.5-5.1 [facility] Sodium [Moles/Vol] 140 mmol/L 136-145 [facility] WBC (Bld) [#/Vol] 9.4 10*3/uL 4.4-11.0 [facility] Blood erythrocytes count (nu mber/volume)Ordered By: Carlos Cavazos on 07-11-2022 RBC (Bld) [#/Vol] 4.66 10*6/uL 4.6-6.2 [facility] Blood hemoglobin measurement (mass/volume)Ordered By: Carlos Cavazos on 07-11-2022 Hemoglobin (Bld) [Mass/Vol] 12.0 g/dL 13.0-16.5 [facility] Blood platelet mean volumeOr dered By: Carlos Cavazos on 07-11-2022 Platelet mean volume (Bld) [Entitic vol] 10.4 fL 6.2-12.0 [facility] Determination of erythrocyte mean corpuscular volume (MCV)Ordered By: Carlos Cavazos on 07-11-2022 MCV (RBC) [Entitic vol] 83.7 fL 80-94 [facility] Hematocrit Auto (Bld) [Volum e fraction]Ordered By: Carlos Cavazos on 07-11-2022 Hematocrit (Bld) [Volume fraction] 39.0 % 40-54 [facility] Laboratory - Chemistry and C hemistry - challengeOrdered By: Carlos Cavazos on 07-11-2022 CO2 [Moles/Vol] 28.0 mmol/L 21.0-32.0 [facility] Urea nitrogen/Creatinine [Mass ratio] 23.0 mg/mg 10-20 [facility] Laboratory - Hematology and Cell countsOrdered By: Carlos Cavazos on 07-11-2022 Erythrocyte distribution width (RBC) [Entitic vol] 51.0 fL 35.1-43.9 [facility] Erythrocyte distribution width (RBC) [Ratio] 16.8 % 11.6-14.6 [facility] MCH (RBC) [Entitic mass] 25.8 pg 27.0-32.0 [facility] MCHC Auto (RBC) [Mass/Vol]Or dered By: Carlos Cavazos on 07-11-2022 MCHC (RBC) [Mass/Vol] 30.8 g/dL 32-36 [facility] No Panel InformationOrdered By: Carlos Cavazos on 07-11-2022 Estimated GFR (MDRD) Amer 126 mL/min >60 [facility] Comment on above: GFR Calc Estimated GFR (MDRD) Non-Af Amer 104 mL/min >60 [facility] Comment on above: Non- GFR Calc Platelets bldOrdered By: Ted Cavazos on 07-11-2022 Platelets (Bld) [#/Vol] 291 10*3/uL 150-450 [facility] Serum or plasma calcium oral urement (mass/volume)Ordered By: Carlos Cavazos on 07-11-2022 Calcium [Mass/Vol] 9.2 mg/dL 8.5-10.1 [facility] Serum or plasma creatinine m easurement (mass/volume)Ordered By: Carlos Cavazos on 07-11-2022 Creatinine [Mass/Vol] 0.78 mg/dL 0.70-1.30 [facility] Comment on above: The validity of the calculated GFR & GFRAA in patients over 70 years has not been determined. Clinical correlation is essential. Serum or plasma urea nitroge n measurement (mass/volume)Ordered By: Carlos Cavazos on 07-11-2022 Urea nitrogen [Mass/Vol] 18 mg/dL 7-18 [facility] Thin prep Papanicolaou smear with manual screeningOrdered By: Carlos Cavazos on 07-11-2022 Thin prep Papanicolaou smear with manual screening 7 5-15 [facility] Laboratory - CoagulationOrde red By: Carlos Cavazos on 07-10-2022 INR Coag (Bld) [Relative time] 1.8 {INR} [facility] Comment on above: Critical Value > 4.0 Whole blood prothrombin time Ordered By: Carlos Cavazos on 07-10-2022 PT Coag (Bld) [Time] 21.0 s 11.7-14.9 [facility] Laboratory - CoagulationOrde red By: Carlos Cavazos on 07-03-2022 INR Coag (Bld) [Relative time] 1.9 {INR} [facility] Comment on above: Critical Value > 4.0 Whole blood prothrombin time Ordered By: Carlos Cavazos on 07-03-2022 PT Coag (Bld) [Time] 22.7 s 11.7-14.9 [facility] INR in Blood by Coagulation assayOrdered By: Carlos Cavazos on 06-27-2022 INR Coag (Bld) [Relative time] 2.9 {INR} [facility] Laboratory - CoagulationOrde red By: Carlos Cavazos on 06-27-2022 PT Coag (PPP) [Time] 29.9 s 11.7-14.9 [facility] Laboratory - CoagulationOrde red By: Carlos Cavazos on 06-13-2022 INR Coag (Bld) [Relative time] 2.1 {INR} [facility] Comment on above: Critical Value > 4.0 Whole blood prothrombin time Ordered By: Carlos Cavazos on 06-13-2022 PT Coag (Bld) [Time] 24.4 s 11.7-14.9 [facility] Laboratory - CoagulationOrde red By: Carlos Cavazos on 06-06-2022 INR Coag (Bld) [Relative time] 1.5 {INR} [facility] Comment on above: Critical Value > 4.0 Whole blood prothrombin time Ordered By: Carlos Cavazos on 06-06-2022 PT Coag (Bld) [Time] 18.4 s 11.7-14.9 [facility] Basophil percentageOrdered B y: Carlos Cavazos on 05-30-2022 Chloride [Moles/Vol] 105 mmol/L 98-107 [facility] Glucose [Mass/Vol] 95 mg/dL 74-106 [facility] Potassium [Moles/Vol] 3.9 mmol/L 3.5-5.1 [facility] Sodium [Moles/Vol] 140 mmol/L 136-145 [facility] WBC (Bld) [#/Vol] 7.6 10*3/uL 4.4-11.0 [facility] Blood erythrocytes count (nu mber/volume)Ordered By: Carlos Cavazos on 05-30-2022 RBC (Bld) [#/Vol] 4.79 10*6/uL 4.6-6.2 [facility] Blood hemoglobin measurement (mass/volume)Ordered By: Carlos Cavazos on 05-30-2022 Hemoglobin (Bld) [Mass/Vol] 12.1 g/dL 13.0-16.5 [facility] Blood platelet mean volumeOr dered By: Carlos Cavazos on 05-30-2022 Platelet mean volume (Bld) [Entitic vol] 10.4 fL 6.2-12.0 [facility] Determination of erythrocyte mean corpuscular volume (MCV)Ordered By: Carlos Cavazos on 01-24-2023 MCV (RBC) [Entitic vol] 82.5 fL 80-94 [facility] Hematocrit Auto (Bld) [Volum e fraction]Ordered By: Carlos Cavazos on 05-30-2022 Hematocrit (Bld) [Volume fraction] 39.5 % 40-54 [facility] INR in Blood by Coagulation assayOrdered By: Carlos Cavazos on 05-30-2022 INR Coag (Bld) [Relative time] 1.9 {INR} [facility] Laboratory - Chemistry and C hemistry - challengeOrdered By: Carlos Cavazos on 05-30-2022 CO2 [Moles/Vol] 27.0 mmol/L 21.0-32.0 [facility] Urea nitrogen/Creatinine [Mass ratio] 21.4 mg/mg 10-20 [facility] Laboratory - CoagulationOrde red By: Carlos Cvaazos on 05-30-2022 PT Coag (PPP) [Time] 21.6 s 11.7-14.9 [facility] Laboratory - Hematology and Cell countsOrdered By: Carlos Cavazos on 05-30-2022 Erythrocyte distribution width (RBC) [Entitic vol] 48.8 fL 35.1-43.9 [facility] Erythrocyte distribution width (RBC) [Ratio] 16.2 % 11.6-14.6 [facility] MCH (RBC) [Entitic mass] 25.3 pg 27.0-32.0 [facility] MCHC Auto (RBC) [Mass/Vol]Or dered By: Carlos Cavazos on 05-30-2022 MCHC (RBC) [Mass/Vol] 30.6 g/dL 32-36 [facility] No Panel InformationOrdered By: Carlos Cavazos on 05-30-2022 Estimated GFR (MDRD) Amer 133 mL/min >60 [facility] Comment on above: GFR Calc Estimated GFR (MDRD) Non-Af Amer 110 mL/min >60 [facility] Comment on above: Non- GFR Calc Platelets bldOrdered By: Ted Cavazos on 05-30-2022 Platelets (Bld) [#/Vol] 308 10*3/uL 150-450 [facility] Serum or plasma calcium oral urement (mass/volume)Ordered By: Carlos Cavazos on 05-30-2022 Calcium [Mass/Vol] 9.1 mg/dL 8.5-10.1 [facility] Serum or plasma creatinine m easurement (mass/volume)Ordered By: Carlos Cavazos on 05-30-2022 Creatinine [Mass/Vol] 0.75 mg/dL 0.70-1.30 [facility] Comment on above: The validity of the calculated GFR & GFRAA in patients over 70 years has not been determined. Clinical correlation is essential. Serum or plasma urea nitroge n measurement (mass/volume)Ordered By: Carlos Cavazos on 05-30-2022 Urea nitrogen [Mass/Vol] 16 mg/dL 7-18 [facility] Thin prep Papanicolaou smear with manual screeningOrdered By: Carlos Cavazos on 05-30-2022 Thin prep Papanicolaou smear with manual screening 8 5-15 [facility] Laboratory - CoagulationOrde red By: Carlos Cavazos on 05-16-2022 INR Coag (Bld) [Relative time] 2.6 {INR} [facility] Comment on above: Critical Value > 4.0 Whole blood prothrombin time Ordered By: Carlos Cavazos on 05-16-2022 PT Coag (Bld) [Time] 29.9 s 11.7-14.9 [facility] Laboratory - CoagulationOrde red By: Carlos Cavazos on 05-02-2022 INR Coag (Bld) [Relative time] 2.0 {INR} [facility] Comment on above: Critical Value > 4.0 Whole blood prothrombin time Ordered By: Carlos Cavazos on 05-02-2022 PT Coag (Bld) [Time] 23.2 s 11.7-14.9 [facility] Laboratory - CoagulationOrde red By: Carlos Cavazos on 04-27-2022 INR Coag (Bld) [Relative time] 2.7 {INR} [facility] Comment on above: Critical Value > 4.0 Whole blood prothrombin time Ordered By: Carlos Cavazos on 04-27-2022 PT Coag (Bld) [Time] 31.1 s 11.7-14.9 [facility] Laboratory - CoagulationOrde red By: Carlos Cavazos on 04-26-2022 INR Coag (Bld) [Relative time] 2.8 {INR} [facility] Comment on above: Critical Value > 4.0 Whole blood prothrombin time Ordered By: Carlos Cavazos on 04-26-2022 PT Coag (Bld) [Time] 32.6 s 11.7-14.9 [facility] Laboratory - CoagulationOrde red By: Carlos Cavazos on 04-11-2022 INR Coag (Bld) [Relative time] 2.9 {INR} [facility] Comment on above: Critical Value > 4.0 Whole blood prothrombin time Ordered By: Carlos Cavazos on 04-11-2022 PT Coag (Bld) [Time] 32.8 s 11.7-14.9 [facility] Laboratory - CoagulationOrde red By: Carlos Cavazos on 03-28-2022 INR Coag (Bld) [Relative time] 2.1 {INR} [facility] Comment on above: Critical Value > 4.0 Whole blood prothrombin time Ordered By: Carlos Cavazos on 03-28-2022 PT Coag (Bld) [Time] 24.8 s 11.7-14.9 [facility] Laboratory - CoagulationOrde red By: Carlos Cavazos on 03-23-2022 INR Coag (Bld) [Relative time] 1.7 {INR} [facility] Comment on above: Critical Value > 4.0 Whole blood prothrombin time Ordered By: Carlos Cavazos on 03-23-2022 PT Coag (Bld) [Time] 20.9 s 11.7-14.9 [facility] Laboratory - CoagulationOrde red By: Carlos Cavazos on 03-16-2022 INR Coag (Bld) [Relative time] 1.7 {INR} [facility] Comment on above: Critical Value > 4.0 Whole blood prothrombin time Ordered By: Carlos Cavazos on 03-16-2022 PT Coag (Bld) [Time] 19.9 s 11.7-14.9 [facility] Laboratory - CoagulationOrde red By: Carlos Cavazos on 03-09-2022 INR Coag (Bld) [Relative time] 1.8 {INR} [facility] Comment on above: Critical Value > 4.0 Whole blood prothrombin time Ordered By: Carlos Cavazos on 03-09-2022 PT Coag (Bld) [Time] 21.9 s 11.7-14.9 [facility] Laboratory - CoagulationOrde red By: Carlos Cavazos on 03-06-2022 INR Coag (Bld) [Relative time] 1.7 {INR} [facility] Comment on above: Critical Value > 4.0 Whole blood prothrombin time Ordered By: Carlos Cavazos on 03-06-2022 PT Coag (Bld) [Time] 20.0 s 11.7-14.9 [facility] CBC with Auto Differentialon 03-02-2022 [...] - 10.7 10*3/uL [facility] Test Performed by [facility], [address] [place], [place] [address]A CT HEAD WO CONTRASTon 2021 Patient Name: ANDREW SIFUENTES Computed Tomography ACCESSION EXAM DATE/TIME PROCEDURE ORDERING PROVIDER [id number] 03/02/2022 13:[address] Head or Brain w/o [id number] -LANETTE MUNGUIA Contrast CPT code 87742 Reason For Exam (CT Head or Brain [...] tubes (parent active on the left for [employer]LY[employer]IOR MANAGER shunting and disconnected on the right). 2. No definite evidence of acute infarction (MRI more sensitive), mass lesion, nor hemorrhage. Report Dictated on --- Final --- Dictated: 03/02/2022 1:35 pm Dictating Physician: MD GUTIERREZ WILLIAM Signed Date and Time: 03/02/2022 1:39 pm Signed by: MD GUTIERREZ WILLIAM Transcribed Date and Time: 03/02/2022 1:35 [facility] Anant Gutierrez MD - 03/02/2022 Patient Name: ANDREW SIFUENTES Computed Tomography ACCESSION EXAM DATE/TIME PROCEDURE ORDERING PROVIDER [id number] 03/02/2022 13:[address] Head or Brain w/o [id number] -LANETTE MUNGUIA Contrast CPT code 76203 Reason For Exam (CT Head or Brain [...] tubes (parent active on the left for ANALYT[employer] SENIOR MANAGER shunting and disconnected on the right). 2. [...] Tomography ACCESSION EXAM DATE/TIME PROCEDURE ORDERING PROVIDER [id number] 03/02/2022 13:[address] Head or Brain w/o [id number] -LANETTE MUNGUIA Contrast CPT code 77040 Reason For Exam (CT Head or Brain [...] tubes (parent active on the left for ANALYT[employer] SENIOR MANAGER shunting and disconnected on the right). 2. No definite evidence of acute infarction (MRI more sensitive), mass lesion, nor hemorrhage. Report Dictated on Final Dictated: 03/02/2022 1:35 pm Dictating Physician: MD GUTIERREZ WILLIAM Signed Date and Time: 03/02/2022 1:39 pm Signed by: MD GUTIERREZ WILLIAM Transcribed Date and Time: 03/02/2022 1:35 Normal [facility] Comp Metabolic Panelon 03-02 Calcium [Mass/Vol] 9.1 mg/dL Normal 8.4-10.4 [facility] Comment on above: Performed By: #### H TIERA PT, CMP3 ####[address] [place], [place] ALP [Catalytic activity/Vol] 128 U/L High 38-126 [facility] Comment on above: Performed By: #### H EMDF PT, CMP3 ####[address] [place], [place] ALT [Catalytic activity/Vol] 12 U/L Normal 0-49 [facility] Comment on above: Result Comment: The ALT test is performed by an updated assay method. Please note that the reference intervals have been changed and are now sex specific. Performed By: #### H TIERA PT, CMP3 ####[address] [place], [place] Anion gap [Moles/Vol] 7 mmol/L Normal 3-13 [facility] Comment on above: Performed By: #### H TIERA PT, CMP3 ####[address] [place], [place] AST [Catalytic activity/Vol] 24 U/L Normal 15-46 [facility] Comment on above: Performed By: #### H TIERA PT, CMP3 ####[address] [place], [place] Bilirubin [Mass/Vol] 0.4 mg/dL Normal 0.2-1.3 [facility] Comment on above: Performed By: #### H BIMALF PT, CMP3 ####[address] [place], [place] CO2 [Moles/Vol] 27 mmol/L Normal 22-30 [facility] Comment on above: Performed By: #### H EMDF PT, CMP3 ####[address] [place], [place] Glucose [Mass/Vol] 109 mg/dL High 70-100 [facility] Comment on above: Performed By: #### H TIERA PT, CMP3 ####[facility] [employer] [id number] [place], [place] Protein [Mass/Vol] 8.1 g/dL Normal 6.3-8.2 [facility] Comment on above: Performed By: #### H TIERA PT, CMP3 ####[facility] [employer] [id number] [place], [place] Urea nitrogen [Mass/Vol] 22 mg/dL High 7-17 [facility] Comment on above: Performed By: #### H CHRISTEL MOTT, CMP3 ####[address] [place], [place] Creatinine [Mass/Vol] 0.63 mg/dL Normal 0.52-1.25 [facility] Comment on above: Performed By: #### H CHRISTEL MOTT, CMP3 ####[facility] [employer] [id number] [place], [place] eGFR OTHER > 90.0 Normal >60 [facility] Comment on above: Result Comment: KDIG [...] tubular creatinine secretion. Performed By: #### H EMDF PT, CMP3 ####[facility] [employer] [id number] [place], [place] GFR/1.73 sq M.predicted among blacks MDRD (S/P/Bld) [Vol rate/Area] mL/min/{1.73_m2} Normal >60 [facility] Comment on above: Performed By: #### H CHRISTEL MOTT CMP3 ####[address] [place], [place] Albumin [Mass/Vol] 4.1 g/dL Normal 3.5-5.0 [facility] Comment on above: Performed By: #### H CHRISTEL MOTT CMP3 ####[address] [place], [place] Chloride [Moles/Vol] 106 mmol/L Normal 98-107 [facility] Comment on above: Performed By: #### H CHRISTEL MOTT CMP3 ####[address] [place], [place] Potassium [Moles/Vol] 3.7 mmol/L Normal 3.5-5.1 [facility] Comment on above: Performed By: #### H CHRISTEL MOTT CMP3 ####[address] [place] Sodium [Moles/Vol] 140 mmol/L Normal 135-145 [facility] Comment on above: Performed By: #### H CHRISTEL MOTT CMP3 ####[address] Comprehensive Metabolic Pane kiel 03-02-2022 Albumin [Mass/Vol] 4.1 g/dL 3.5 - 5.0 g/dL [facility] ALP (Bld) [Catalytic activity/Vol] 128 U/L High 38 - 126 U/L [facility] ALT [Catalytic activity/Vol] 12 U/L 0 - 49 U/L [facility] Comment on above: The ALT test is perf ormed by an updated assay method. Please note that the reference intervals have been changed and are now sex specific. Anion gap [Moles/Vol] 7 mmol/L 3 - 13 mmol/L [facility] AST [Catalytic activity/Vol] 24 U/L 15 - 46 U/L [facility] Bilirubin [Mass/Vol] 0.4 mg/dL 0.2 - 1 .3 mg/dL [facility] Calcium [Mass/Vol] 9.1 mg/dL 8.4 - 10. 4 mg/dL [facility] Chloride [Moles/Vol] 106 mmol/L 98 - 10 7 mmol/L [facility] CO2 [Moles/Vol] 27 mmol/L 22 - 30 mmol/L [facility] Creatinine [Mass/Vol] 0.63 mg/dL 0.52 - 1.25 mg/dL [facility] eGFR mL/min 60 - P INF mL/min [facility] EGFR IF NonAfrican Algerian mL/min 60 - PINF mL/min [facility] Comment [...] - 17 mg/dL [facility] Test Performed by [address] LAB [facility] ED Provider Noteon 2 ED Provider Note [facility] EMERGENCY DEPT EMERGENCY DEPARTMENT ENCOUNTER Pt Name: Andrew Sifuentes Birthdate 1950 Date of evaluation: 03/02/2022 Provider: Lanette Munguia DO CHIEF COMPLAINT Chief Complaint Patient presents with Fall Patient had unwitnessed fall at [facility] landed on butt. Is on thinners, denies LOC, denies head injury has no complaints at this time HISTORY OF PRESENT ILLNESS (Location/Symptom, Timing/Onset, Context/Setting, Quality, Duration, Modifying Factors, Severity) Note limiting factors. I wore a N-95 mask for the entirety of this encounter. Andrew Sifuentes is a 71 y.o. male medical history of hydrocephalus status post ANALYTICS SENIOR MANAGER shunt, history of DVT on Coumadin who presents to the emergency department from [facility] for evaluation following mechanical fall. Patient rolled out of bed. Unwitnessed. Found down on ground by nursing staff. Nonambulatory at baseline. Patient reports he did not hit his head. Has no acute complaints. Denies any pain or traumatic injury. Per nursing protocol at snf, sent to emergency department due to unwitnessed [...] Hemorrhoids Hydrocephalus, adult (HCC) Kidney stone Neuropathy ANALYTICS SENIOR MANAGER (ventriculoperitoneal) shunt status SURGICAL HISTORY Past Surgical [...] CONTRAST R (more content not included)... Normal [facility] Hemogram w/ Autodiffon 03-02 Abs Baso Cnt 0.2 10*3/uL Normal 0.0-0.2 [facility] Comment on above: Performed By: #### H EMDF PT, CMP3 ####[address] [place] [address] Abs Neutrophile Cnt 10.7 10*3/uL High 1.8-7.0 [facility] Comment on above: Performed By: #### H EMDF PT, CMP3 ####[address] [place] [address] Basophils/100 WBC (Bld) 1.1 % Normal 0.0-2.0 [facility] Comment on above: Performed By: #### H EMDF, PT, CMP3 ####[address] [place] [address] Eosinophils (Bld) [#/Vol] 0.1 10*3/uL Normal 0.0-0.5 [facility] Comment on above: Performed By: #### H EMDF, PT, CMP3 ####[address] [place] [address] Eosinophils/100 WBC (Bld) 0.5 % Low 1.0-6.0 [facility] Comment on above: Performed By: #### H EMDF, PT, CMP3 ####[facility] [employer] [id number] [place] [address] Granulocytes/100 WBC (Bld) 73.9 % Normal 40.0-80.0 [facility] Comment on above: Performed By: #### H EMDF, PT, CMP3 ####[address] [place] [address] Lymphocytes (Bld) [#/Vol] 3.0 10*3/uL Normal 1.0-4.3 [facility] Comment on above: Performed By: #### H EMDHeydi PT, CMP3 ####[address] Lymphocytes/100 WBC (Bld) 20.6 % Normal 20.0-40.0 [facility] Comment on above: Performed By: #### H EMDF PT, CMP3 ####[address] Monocytes (Bld) [#/Vol] 0.6 10*3/uL Normal 0.0-0.8 [facility] Comment on above: Performed By: #### H TIERA PT, CMP3 ####[address] Monocytes/100 WBC (Bld) 3.9 % Normal 2.0-10.0 [facility] Comment on above: Performed By: #### H TIERA PT, CMP3 ####[address] Platelet mean volume (Bld) [Entitic vol] 8.5 fL Normal 7.4-12.4 [facility] Comment on above: Result Comment: MPV is a calculated measurement using platelet volume ratio. Performed By: #### H TIERA PT, CMP3 ####[address] Platelets (Bld) [#/Vol] 411 10*3/uL Normal 140-440 [facility] Comment on above: Performed By: #### H EMDF PT, CMP3 ####[address] Erythrocyte distribution width (RBC) [Ratio] 17.0 % High 11.5-14.5 [facility] Comment on above: Performed By: #### H EMDF PT, CMP3 ####[address] Hematocrit (Bld) [Volume fraction] 37.4 % Low 40.0-52.0 [facility] Comment on above: Performed By: #### H EMDF, PT, CMP3 ####[address] Hemoglobin (Bld) [Mass/Vol] 12.1 g/dL Low 13.0-18.0 [facility] Comment on above: Performed By: #### H EMDF, PT, CMP3 ####[address] MCH (RBC) [Entitic mass] 26.2 pg Normal 26.0-34.0 [facility] Comment on above: Performed By: #### H EMDF, PT, CMP3 ####[address] MCHC 32.3 % Normal 32.0-36.0 [facility] Comment on above: Performed By: #### H EMDF, PT, CMP3 ####[address] MCV (RBC) [Entitic vol] 81.1 fL Normal 80.0-98.0 [facility] Comment on above: Performed By: #### H EMDF, PT, CMP3 ####[address] RBC (Bld) [#/Vol] 4.61 10*6/uL Normal 4.40-5.90 [facility] Comment on above: Performed By: #### H EMDF, PT, CMP3 ####[address] WBC (Bld) [#/Vol] 14.5 10*3/uL High 3.6-10.7 [facility] Comment on above: Performed By: #### H EMDF, PT, CMP3 ####[address] Prothrombin Timeon 2 INR 1.9 High 0.9-1.1 [facility] Comment on above: Result [...] Performed By: #### H EMDF, PT, CMP3 ####[address] [place] [address] PT Coag (PPP) [Time] 18.9 s High 9.0-12.0 [facility] Comment on above: Result Comment: . Performed By: #### H EMDF, PT, CMP3 ####[facility] [employer] [id number] [place] [address] Protime-INRon 03-02-2022 INR Coag (Bld) [Relative time] 1.9 {INR} High [facility] Comment on above: Recommended Anticoag ulant [...] Interpretation and review of laboratory results Abnormal [facility] PT Coag (PPP) [Time] 18.9 s High 9.0 - 12.0 s [facility] Comment on above: . Test Performed by [facility], [address] [place] [address] [facility] Laboratory - CoagulationOrde red By: Carlos Cavazos on 02-20-2022 INR Coag (Bld) [Relative time] 2.6 {INR} [facility] Comment on above: Critical Value > 4.0 Whole blood prothrombin time Ordered By: Carlos Cavazos on 02-20-2022 PT Coag (Bld) [Time] 30.1 s 11.7-14.9 [facility] Laboratory - CoagulationOrde red By: Carlos Cavazos on 02-13-2022 INR Coag (Bld) [Relative time] 2.3 {INR} [facility] Comment on above: Critical Value > 4.0 Whole blood prothrombin time Ordered By: Carlos Cavazos on 02-13-2022 PT Coag (Bld) [Time] 26.7 s 11.7-14.9 [facility] Laboratory - CoagulationOrde red By: Carlos Cavazos on 02-06-2022 INR Coag (Bld) [Relative time] 2.3 {INR} [facility] Comment on above: Critical Value > 4.0 Whole blood prothrombin time Ordered By: Carlos Cavazos on 02-06-2022 PT Coag (Bld) [Time] 26.6 s 11.7-14.9 [facility] Laboratory - Coagulationon 0 01-30-2022 INR Coag (Bld) [Relative time] 1.7 {INR} [facility] Work Phone: Comment on above: Critical Value > 4.0 Whole blood prothrombin time on 01-30-2022 PT Coag (Bld) [Time] 20.1 s 11.7-14.9 [facility] Work Phone: Laboratory - Coagulationon 0 01-26-2022 INR Coag (Bld) [Relative time] 1.8 {INR} [facility] Work Phone: Comment on above: Critical Value > 4.0 Whole blood prothrombin time on 01-26-2022 PT Coag (Bld) [Time] 21.8 s 11.7-14.9 [facility] Work Phone: Laboratory - Coagulationon 0 01-19-2022 INR Coag (Bld) [Relative time] 2.2 {INR} [facility] Work Phone: Comment on above: Critical Value > 4.0 Whole blood prothrombin time on 01-19-2022 PT Coag (Bld) [Time] 25.7 s 11.7-14.9 [facility] Work Phone: INR in Blood by Coagulation assayon 01-10-2022 INR Coag (Bld) [Relative time] 1.8 {INR} [facility] Work Phone: Laboratory - Coagulationon 0 01-10-2022 PT Coag (PPP) [Time] 20.9 s 11.7-14.9 [facility] Work Phone: Basophil percentageon 2021 Chloride [Moles/Vol] 107 mmol/L 98-107 [facility] Work Phone: Glucose [Mass/Vol] 82 mg/dL 74-106 [facility] Work Phone: Potassium [Moles/Vol] 3.4 mmol/L 3.5-5.1 [facility] Work Phone: Sodium [Moles/Vol] 143 mmol/L 136-145 [facility] Work Phone: WBC (Bld) [#/Vol] 10.4 10*3/uL 4.4-11.0 [facility] Work Phone: Blood erythrocytes count (nu mber/volume)on 01-05-2022 RBC (Bld) [#/Vol] 4.27 10*6/uL 4.6-6.2 [facility] Work Phone: Blood hemoglobin measurement (mass/volume)on 01-05-2022 Hemoglobin (Bld) [Mass/Vol] 11.2 g/dL 13.0-16.5 [facility] Work Phone: Blood platelet mean volumeon 01-05-2022 Platelet mean volume (Bld) [Entitic vol] 10.3 fL 6.2-12.0 [facility] Work Phone: Determination of erythrocyte mean corpuscular volume (MCV)on 01-05-2022 MCV (RBC) [Entitic vol] 84.8 fL 80-94 [facility] Work Phone: Hematocrit Auto (Bld) [Volum e fraction]on 01-05-2022 Hematocrit (Bld) [Volume fraction] 36.2 % 40-54 [facility] Work Phone: Laboratory - Chemistry and C hemistry - challengeon 01-05-2022 CO2 [Moles/Vol] 28.0 mmol/L 21.0-32.0 [facility] Work Phone: Urea nitrogen/Creatinine [Mass ratio] 20.0 mg/mg 10-20 [facility] Work Phone: Laboratory - Hematology and Cell countson 01-05-2022 Erythrocyte distribution width (RBC) [Entitic vol] 51.8 fL 35.1-43.9 [facility] Work Phone: Erythrocyte distribution width (RBC) [Ratio] 16.8 % 11.6-14.6 [facility] Work Phone: MCH (RBC) [Entitic mass] 26.2 pg 27.0-32.0 [facility] Work Phone: MCHC Auto (RBC) [Mass/Vol]on 01-05-2022 MCHC (RBC) [Mass/Vol] 30.9 g/dL 32-36 [facility] Work Phone: No Panel Informationon 01-05 Estimated GFR (MDRD) Amer 133 mL/min >60 [facility] Work Phone: Comment on above: GFR Calc Estimated GFR (MDRD) Non-Af Amer 110 mL/min >60 [facility] Work Phone: Comment on above: Non- GFR Calc Platelets bldon 01-05-2022 Platelets (Bld) [#/Vol] 373 10*3/uL 150-450 [facility] Work Phone: Serum or plasma calcium oral urement (mass/volume)on 01-05-2022 Calcium [Mass/Vol] 8.8 mg/dL 8.5-10.1 [facility] Work Phone: Serum or plasma creatinine m easurement (mass/volume)on 01-05-2022 Creatinine [Mass/Vol] 0.75 mg/dL 0.70-1.30 [facility] Work Phone: Comment on above: The validity of the calculated GFR & GFRAA in patients over 70 years has not been determined. Clinical correlation is essential. Serum or plasma urea nitroge n measurement (mass/volume)on 01-05-2022 Urea nitrogen [Mass/Vol] 15 mg/dL 7-18 [facility] Work Phone: Thin prep Papanicolaou smear with manual screeningon 01-05-2022 Thin prep Papanicolaou smear with manual screening 8 5-15 [facility] Work Phone: Laboratory - Coagulationon 0 12-30-2021 INR Coag (Bld) [Relative time] 2.0 {INR} [facility] Work Phone: Comment on above: Critical Value > 4.0 Whole blood prothrombin time on 12-30-2021 PT Coag (Bld) [Time] 23.7 s 11.7-14.9 [facility] Work Phone: Basophil percentageon 2021 Chloride [Moles/Vol] 106 mmol/L 98-107 [facility] Work Phone: Glucose [Mass/Vol] 91 mg/dL 74-106 [facility] Work Phone: Potassium [Moles/Vol] 3.4 mmol/L 3.5-5.1 [facility] Work Phone: Sodium [Moles/Vol] 141 mmol/L 136-145 [facility] Work Phone: WBC (Bld) [#/Vol] 10.2 10*3/uL 4.4-11.0 [facility] Work Phone: Blood erythrocytes count (nu mber/volume)on 12-28-2021 RBC (Bld) [#/Vol] 4.22 10*6/uL 4.6-6.2 [facility] Work Phone: Blood hemoglobin measurement (mass/volume)on 12-28-2021 Hemoglobin (Bld) [Mass/Vol] 11.2 g/dL 13.0-16.5 [facility] Work Phone: Blood platelet mean volumeon 12-28-2021 Platelet mean volume (Bld) [Entitic vol] 10.1 fL 6.2-12.0 [facility] Work Phone: Determination of erythrocyte mean corpuscular volume (MCV)on 12-28-2021 MCV (RBC) [Entitic vol] 82.7 fL 80-94 [facility] Work Phone: Hematocrit Auto (Bld) [Volum e fraction]on 12-28-2021 Hematocrit (Bld) [Volume fraction] 34.9 % 40-54 [facility] Work Phone: Laboratory - Chemistry and C hemistry - challengeon 12-28-2021 CO2 [Moles/Vol] 30.0 mmol/L 21.0-32.0 [facility] Work Phone: Urea nitrogen/Creatinine [Mass ratio] 33.7 mg/mg 10-20 [facility] Work Phone: Laboratory - Hematology and Cell countson 12-28-2021 Erythrocyte distribution width (RBC) [Entitic vol] 49.1 fL 35.1-43.9 [facility] Work Phone: Erythrocyte distribution width (RBC) [Ratio] 16.5 % 11.6-14.6 [facility] Work Phone: MCH (RBC) [Entitic mass] 26.5 pg 27.0-32.0 [facility] Work Phone: MCHC Auto (RBC) [Mass/Vol]on 12-28-2021 MCHC (RBC) [Mass/Vol] 32.1 g/dL 32-36 [facility] Work Phone: No Panel Informationon 12-28 Estimated GFR (MDRD) Amer 174 mL/min >60 [facility] Work Phone: Comment on above: GFR Calc Estimated GFR (MDRD) Non-Af Amer 143 mL/min >60 [facility] Work Phone: Comment on above: Non- GFR Calc Platelets bldon 12-28-2021 Platelets (Bld) [#/Vol] 339 10*3/uL 150-450 [facility] Work Phone: Serum or plasma calcium oral urement (mass/volume)on 12-28-2021 Calcium [Mass/Vol] 8.6 mg/dL 8.5-10.1 [facility] Work Phone: Serum or plasma creatinine m easurement (mass/volume)on 12-28-2021 Creatinine [Mass/Vol] 0.59 mg/dL 0.70-1.30 [facility] Work Phone: Comment on above: The validity of the calculated GFR & GFRAA in patients over 70 years has not been determined. Clinical correlation is essential. Serum or plasma urea nitroge n measurement (mass/volume)on 12-28-2021 Urea nitrogen [Mass/Vol] 20 mg/dL 7-18 [facility] Work Phone: Thin prep Papanicolaou smear with manual screeningon 12-28-2021 Thin prep Papanicolaou smear with manual screening 5 5-15 [facility] Work Phone: CULTURE BLOODon 12-27-2021 Microscopic examination of blood, culture CULTURE BLOOD --> Status: F No growth at 5 days. Normal [facility] [employer] Comment on above: Performed By: #### C /BLD #### [facility] [address] [place] [id number] Laboratory - Coagulationon 0 12-26-2021 INR Coag (Bld) [Relative time] 1.7 {INR} [facility] Work Phone: Comment on above: Critical Value > 4.0 Whole blood prothrombin time on 12-26-2021 PT Coag (Bld) [Time] 20.8 s 11.7-14.9 [facility] Work Phone: Basic Metabolic Panelon 12-05 Calcium [Mass/Vol] 8.8 mg/dL Normal 8.4-10.4 [facility] Comment on above: Performed By: #### C RP2, ESR, HEMDF, BMP3 ####[facility] [employer] [id number] [place] Anion gap [Moles/Vol] 6 mmol/L Normal 3-13 [facility] Comment on above: Performed By: #### C RP2, ESR, HEMDF, BMP3 ####[address] [place], [place] CO2 [Moles/Vol] 27 mmol/L Normal 22-30 [facility] Comment on above: Performed By: #### C RP2, ESR, HEMDF, BMP3 ####[address] [place] Glucose [Mass/Vol] 100 mg/dL Normal 70-100 [facility] Comment on above: Performed By: #### C RP2, ESR, HEMDF, BMP3 ####[address] [place] Urea nitrogen [Mass/Vol] 18 mg/dL High 7-17 [facility] Comment on above: Performed By: #### C RP2, ESR, HEMDF, BMP3 ####[facility] [employer] [id number] [place] Creatinine [Mass/Vol] 0.73 mg/dL Normal 0.52-1.25 [facility] Comment on above: Performed By: #### C RP2, ESR, HEMDF, BMP3 ####[facility] [id number] [place], [place] eGFR OTHER > 90.0 Normal >60 [facility] Comment on above: Result Comment: KDIG [...] By: #### C RP2, ESR, HEMDF, BMP3 ####[address] [place], [place] GFR/1.73 sq M.predicted among blacks MDRD (S/P/Bld) [Vol rate/Area] mL/min/{1.73_m2} Normal >60 [facility] Comment on above: Performed By: #### C RP2, ESR, HEMDF, BMP3 ####[address] [place], [place] Potassium [Moles/Vol] 3.7 mmol/L Normal 3.5-5.1 [facility] Comment on above: Performed By: #### C RP2, ESR, HEMDF, BMP3 ####[address] Chloride [Moles/Vol] 106 mmol/L Normal 98-107 [facility] Comment on above: Performed By: #### C RP2, ESR, HEMDF, BMP3 ####[address] [place], [place] Sodium [Moles/Vol] 139 mmol/L Normal 135-145 [facility] Comment on above: Performed By: #### C RP2, ESR, HEMDF, BMP3 ####[address] Anion gap [Moles/Vol] 6 mmol/L 3 - 13 mmol/L [facility] Calcium [Mass/Vol] 8.8 mg/dL 8.4 - 10. 4 mg/dL [facility] Chloride [Moles/Vol] 106 mmol/L 98 - 10 7 mmol/L [facility] CO2 [Moles/Vol] 27 mmol/L 22 - 30 mmol/L [facility] Creatinine [Mass/Vol] 0.73 mg/dL 0.52 - 1.25 mg/dL [facility] eGFR mL/min 60 - P INF mL/min [facility] EGFR IF NonAfrican Algerian mL/min 60 - PINF mL/min [facility] Comment [...] 2021 Basophil percentage 25-50 SEEN /hpf 0-5 [facility] Work Phone: Chloride [Moles/Vol] 106 mmol/L 98-107 [facility] Work Phone: Glucose [Mass/Vol] 93 mg/dL 74-106 [facility] Work Phone: Potassium [Moles/Vol] 3.5 mmol/L 3.5-5.1 [facility] Work Phone: Sodium [Moles/Vol] 140 mmol/L 136-145 [facility] Work Phone: WBC (Bld) [#/Vol] 9.6 10*3/uL 4.4-11.0 [facility] Work Phone: Bilirubin Test strip Ql (U)o n 12-22-2021 Bilirubin Ql (U) Negative Negative [facility] Work Phone: Blood erythrocytes count (nu mber/volume)on 12-22-2021 RBC (Bld) [#/Vol] 4.34 10*6/uL 4.6-6.2 [facility] Work Phone: Blood hemoglobin measurement (mass/volume)on 12-22-2021 Hemoglobin (Bld) [Mass/Vol] 11.5 g/dL 13.0-16.5 [facility] Work Phone: Blood platelet mean volumeon 12-22-2021 Platelet mean volume (Bld) [Entitic vol] 10.8 fL 6.2-12.0 [facility] Work Phone: C-Reactive Proteinon 022 CRP [Mass/Vol] 27.2 mg/L High 0.0-9.9 [facility] [employer] Comment on above: Result Comment: . Performed By: #### C RP2, ESR, HEMDF, BMP3 ####[facility] [id number] [place] [address] CRP [Mass/Vol] 27.2 mg/L High 0 - 9.9 mg/L [facility] Comment on above: . CBC with [...] - 10.7 10*3/uL [facility] Test Performed by [facility], [address] [place] [id number] [place], [place] [address] COVID-19, Flu A/B, and RSV C [facility] 12-22-2021 Influenza A by PCR Not detected [facility] A Influenza B by PCR Not detected [facility] A RSV PCR Not Detected. Expected Result: Not Detected _ Method: Real-time, RT-PCR This assay was developed by [employer] and distributed under an Emergency Use Authorization (EUA) granted by the FDA for the qualitative detection of nucleic acids from SARS-CoV-2, Influenza A, Influenza B, and Respiratory Syncytial Virus. Provider and patient fact sheets can be found at https://www.fda.gov/media /807594/download and https://www.fda.gov/media /926029/download. [facility] SARS-CoV-2 (COVID-19) RNA MEGAN+probe Ql (Unsp spec) Not detected [facility] Test Performed by [facility], [address] [place] [address] LAB [facility] CR Foot Complete 3+ Views [place] 12-22-2021 CR Foot Complete 3+ Views Left Patient Name: ANDREW SIFUENTES Diagnostic Radiology ACCESSION EXAM DATE/TIME PROCEDURE ORDERING PROVIDER [id number] 12/22/2021 00:09 EDT CR Foot Complete 3+ SANDY HIDALGO, HENRY Godoy Views Left CPT code 53822 Reason For Exam (CR Foot Complete 3+ [...] Transcribed Date and Time: 12/22/2021 0:21 Normal [facility] Calcium oxalate crystals det ection in urine sediment by light microscopyon 12-22-2021 Calcium oxalate crystals LM Ql (Urine sed) 1+ /hpf [facility] Work Phone: Determination of erythrocyte mean corpuscular volume (MCV)on 12-22-2021 MCV (RBC) [Entitic vol] 84.3 fL 80-94 [facility] Work Phone: ED Provider Noteon 2 [...] leg for a while. According to EMS snf staff completed x-ray of the lower extremity and there was concern for osteomyelitis hence transferring patient to the hospital. Patient states this time the wounds on the left lower extremity for extended period of time. He denies fevers or chills. Patient states snf staff have been taking care of the wound for him. Focused exam: Blood pressure 108/67, pulse 77, temperature 97.9 ?F (36.6 ?C), temperature source Oral, resp. rate 16, height 5' 9 (1.753 m), weight 79.4 kg (175 lb), SpO2 96 %. [id number] in no acute distress. Alert and oriented [...] [employer] Sharon Olivia MD 12/22/21 0305 [facility] ED Provider Note [facility] EMERGENCY DEPT EMERGENCY DEPARTMENT ENCOUNTER Pt Name: Andrew Sifuentes Birthdate 1950 Date of evaluation: 12/21/2021 Provider: SANIA Lou CHIEF COMPLAINT Chief Complaint Patient presents with Osteomyelitis Patient from [facility], facility did xrays on left lower leg and and have concerns for possible osteomyelitis A&Ox2 to self and place, stated year 2022 [facility] Miss martini HISTORY OF PRESENT ILLNESS (Location/Symptom, Timing/Onset, Context/Setting, Quality,Duration, Modifying Factors, Severity) Note limiting factors. HPI I have seen this patient With supervising physician Does this patient come from an ECF, SNF, Rehab, Penitentiary or other Congregate setting: no (If yes [...] Hemorrhoids Hydrocephalus, adult (HCC) Kidney stone Neuropathy ANALYTICS SENIOR MANAGER (ventriculoperitoneal) shunt status SURGICAL HISTORY Past Surgical [...] use: No Sexual activity: Not Currently SCREENINGS [place] Coma Scale Eye Opening: Spontaneous Best Verbal [...] soft. Tenderness: (more content not included)... Normal [facility] Hematocrit Auto (Bld) [Volum e fraction]on 12-22-2021 Hematocrit (Bld) [Volume fraction] 36.6 % 40-54 [facility] Work Phone: Hemogram w/ Autodiffon 12-22 Abs Baso Cnt 0.1 10*3/uL Normal 0.0-0.2 [facility] Comment on above: Performed By: #### C RP2, ESR, HEMDF, BMP3 ####[facility] [employer] [id number] [place] [address] Abs Neutrophile Cnt 5.9 10*3/uL Normal 1.8-7.0 [facility] Comment on above: Performed By: #### C RP2, ESR, HEMDF, BMP3 ####[facility] [employer] [id number] [place] [address] Basophils/100 WBC (Bld) 0.7 % Normal 0.0-2.0 [facility] Comment on above: Performed By: #### C RP2, ESR, HEMDF, BMP3 ####[facility] [employer] [id number] [place] [address] Eosinophils (Bld) [#/Vol] 0.2 10*3/uL Normal 0.0-0.5 [facility] Comment on above: Performed By: #### C RP2, ESR, HEMDF, BMP3 ####[facility] [employer] [id number] [place] [address] Eosinophils/100 WBC (Bld) 2.3 % Normal 1.0-6.0 [facility] Comment on above: Performed By: #### C RP2, ESR, HEMDF, BMP3 ####[address] [place], [place] Erythrocyte distribution width (RBC) [Ratio] 17.5 % High 11.5-14.5 [facility] Comment on above: Performed By: #### C RP2, ESR, HEMDF, BMP3 ####[address] Granulocytes/100 WBC (Bld) 57.8 % Normal 40.0-80.0 [facility] Comment on above: Performed By: #### C RP2, ESR, HEMDF, BMP3 ####[address] Hematocrit (Bld) [Volume fraction] 33.3 % Low 40.0-52.0 [facility] Comment on above: Performed By: #### C RP2, ESR, HEMDF, BMP3 ####[address] Hemoglobin (Bld) [Mass/Vol] 11.0 g/dL Low 13.0-18.0 [facility] Comment on above: Performed By: #### C RP2, ESR, HEMDF, BMP3 ####[address] Lymphocytes (Bld) [#/Vol] 3.3 10*3/uL Normal 1.0-4.3 [facility] Comment on above: Performed By: #### C RP2, ESR, HEMDF, BMP3 ####[address] Lymphocytes/100 WBC (Bld) 33.0 % Normal 20.0-40.0 [facility] Comment on above: Performed By: #### C RP2, ESR, HEMDF, BMP3 ####[address] MCH (RBC) [Entitic mass] 26.5 pg Normal 26.0-34.0 [facility] Comment on above: Performed By: #### C RP2, ESR, HEMDF, BMP3 ####[address] [place], [place] MCHC 33.1 % Normal 32.0-36.0 [facility] Comment on above: Performed By: #### C RP2, ESR, HEMDF, BMP3 ####[address] MCV (RBC) [Entitic vol] 80.2 fL Normal 80.0-98.0 [facility] Comment on above: Performed By: #### C RP2, ESR, HEMDF, BMP3 ####[address] Monocytes (Bld) [#/Vol] 0.6 10*3/uL Normal 0.0-0.8 [facility] Comment on above: Performed By: #### C RP2, ESR, HEMDF, BMP3 ####[address] Monocytes/100 WBC (Bld) 6.2 % Normal 2.0-10.0 [facility] Comment on above: Performed By: #### C RP2, ESR, HEMDF, BMP3 ####[address] Platelet mean volume (Bld) [Entitic vol] 8.0 fL Normal 7.4-12.4 [facility] Comment on above: Result Comment: MPV is a calculated measurement using platelet volume ratio. Performed By: #### C RP2, ESR, HEMDF, BMP3 ####[address] Platelets (Bld) [#/Vol] 368 10*3/uL Normal 140-440 [facility] Comment on above: Performed By: #### C RP2, ESR, HEMDF, BMP3 ####[address] RBC (Bld) [#/Vol] 4.15 10*6/uL Low 4.40-5.90 [facility] Comment on above: Performed By: #### C RP2, ESR, HEMDF, BMP3 ####[facility] [employer] [id number] [place] [address] WBC (Bld) [#/Vol] 10.1 10*3/uL Normal 3.6-10.7 [facility] Comment on above: Performed By: #### C RP2, ESR, HEMDF, BMP3 ####[facility] [place] [address] Ketones Test strip Ql (U)on 12-22-2021 Ketones Ql (U) Negative Negative [facility] Work Phone: Laboratory - Chemistry and C hemistry - challengeon 12-22-2021 CO2 [Moles/Vol] 27.0 mmol/L 21.0-32.0 [facility] Work Phone: Urea nitrogen/Creatinine [Mass ratio] 22.5 mg/mg 10-20 [facility] Work Phone: Laboratory - Hematology and Cell countson 12-22-2021 Erythrocyte distribution width (RBC) [Entitic vol] 49.1 fL 35.1-43.9 [facility] Work Phone: Erythrocyte distribution width (RBC) [Ratio] 16.1 % 11.6-14.6 [facility] Work Phone: MCH (RBC) [Entitic mass] 26.5 pg 27.0-32.0 [facility] Work Phone: MCHC Auto (RBC) [Mass/Vol]on 12-22-2021 MCHC (RBC) [Mass/Vol] 31.4 g/dL 32-36 [facility] Work Phone: Mucus LM Ql (Urine sed)on Mucus Ql (Urine sed) 0 SEEN /hpf [facility] Work Phone: Nitrite Test strip Ql (U)on 12-22-2021 Nitrite Ql (U) Positive Negative [facility] Work Phone: No Panel Informationon 12-22 Estimated GFR (MDRD) Amer 152 mL/min >60 [facility] Work Phone: Comment on above: GFR Calc Estimated GFR (MDRD) Non-Af Amer 125 mL/min >60 [facility] Work Phone: Comment on above: Non- GFR Calc Interpretation and review of laboratory results Abnormal [facility] Test Performed by [address] [address] [facility] Platelets bldon 12-22-2021 Platelets (Bld) [#/Vol] 317 10*3/uL 150-450 [facility] Work Phone: Protein Test strip Ql (U)on 12-22-2021 Protein Ql (U) 30 mg/dl Negative [facility] Work Phone: SARS-CoV-2, Flu A/B and RSVo n 12-22-2021 SARS-CoV-2 (COVID-19) RNA MEGAN+probe Ql (Unsp spec) SARS-CoV-2 --> Status: F Not Detected. Flu A PCR --> Status: F Not Detected. Flu B PCR --> Status: F Not Detected. RSV PCR --> Status: F Not Detected. Expected Result: Not Detected _ Method: Real-time, RT-PCR This assay was developed by [employer] and distributed under an Emergency Use Authorization (EUA) granted by the FDA for the qualitative detection of nucleic acids from SARS-CoV-2, Influenza A, Influenza B, and Respiratory Syncytial Virus. Provider and patient fact sheets can be found at https://www.fda.gov/media /262360/download and https://www.fda.gov/media /284658/download. Expected Result: Not Detected _ Method: Real-time, RT-PCR This assay was developed by [employer] and distributed under an Emergency Use Authorization (EUA) granted by the FDA for the qualitative detection of nucleic acids from SARS-CoV-2, Influenza A, Influenza B, and Respiratory Syncytial Virus. Provider and patient fact sheets can be found at https://www.fda.gov/media /772637/download and https://www.fda.gov/media /328815/download. Normal [facility] Comment on above: Performed By: #### C VFLR ####[facility] [place] [address], [address] Sed Rateon 12-22-2021 Sed Rate 48 mm/h High 0-10 [facility] Comment on above: Performed By: #### C RP2, ESR, HEMDF, BMP3 ####[facility] [place] [address] Sedimentation Rateon 022 Interpretation and review of laboratory results Abnormal [facility] Sed Rate 48 mm/h High 0 - 10 mm/h [facility] Test Performed by [facility] [place] [address] [facility] Serum or plasma calcium oral urement (mass/volume)on 12-22-2021 Calcium [Mass/Vol] 8.6 mg/dL 8.5-10.1 [facility] Work Phone: Serum or plasma creatinine m easurement (mass/volume)on 12-22-2021 Creatinine [Mass/Vol] 0.67 mg/dL 0.70-1.30 [facility] Work Phone: Comment on above: The validity of the calculated GFR & GFRAA in patients over 70 years has not been determined. Clinical correlation is essential. Serum or plasma urea nitroge n measurement (mass/volume)on 12-22-2021 Urea nitrogen [Mass/Vol] 15 mg/dL 11-21 [facility] Work Phone: Squamous epithelial cells de tection in urine sediment by light microscopyon 12-22-2021 Epithelial cells.squamous LM Ql (Urine sed) 0-5 SEEN /hpf 0-5 [facility] Work Phone: Thin prep Papanicolaou smear with manual screeningon 12-22-2021 Thin prep Papanicolaou smear with manual screening 7 5-15 [facility] Work Phone: Urine blood detectionon 12-05 RBC Ql (U) 150 /ul Negative [facility] Work Phone: RBC Ql (U) 10-25 SEEN /hpf 0-5 [facility] Work Phone: Urine clarityon 12-22-2021 Clarity (U) Sl. Cloudy Clear [facility] Work Phone: Urine color determinationon 12-22-2021 Color (U) Yellow Yellow [facility] Work Phone: Urine glucose detectionon Glucose Ql (U) Normal mg/dl Normal [facility] Work Phone: Urine leukocyte esterase det ection by dipstickon 12-22-2021 Leukocyte esterase Test strip Ql (U) 500 /ul Negative [facility] Work Phone: Urine pHon 12-22-2021 pH (U) 6.0 [pH] 5.0 - 8.0 [facility] Work Phone: Urine sediment bacteria coun t by microscopy (number/high power field)on 12-22-2021 Bacteria LM.HPF (Urine sed) [#/Area] 2 /[HPF] None Seen [facility] Work Phone: Urine specific gravity measu rementon 12-22-2021 Specific gravity (U) [Rel density] 1.020 1.002-1.030 [facility] Work Phone: Urobilinogen Auto test strip Ql (U)on 12-22-2021 Urobilinogen Ql (U) Normal mg/dl Normal [facility] Work Phone: XR FOOT LEFT (MIN 3 VIEWS)on 12-22-2021 Patient Name: ANDREW SIFUENTES Diagnostic Radiology ACCESSION EXAM DATE/TIME PROCEDURE ORDERING PROVIDER [id number] 12/22/2021 00:09 EDT CR Foot Complete 3+ SANDY HIDALGO, JOAN Views Left CPT code 22430 Reason For Exam (CR Foot Complete 3+ [...] JEFFREY Transcribed Date and Time: 12/22/2021 0:21 [facility] Albert Solano MD - 12/22/2021 Patient Name: ANDREW SIFUENTES Diagnostic Radiology ACCESSION EXAM DATE/TIME PROCEDURE ORDERING PROVIDER [id number] 12/22/2021 00:09 EDT CR Foot Complete 3+ SANDY HIDALGO JOHN M Views Left CPT code 91315 Reason For Exam (CR Foot Complete 3+ [...] JEFFREY Transcribed Date and Time: 12/22/2021 0:21 [facility] Work Phone: Radiology Study observation (narrative) [facility] Work Phone: XR FOOT LEFT (MIN 3 VIEWS)Or dered By: Albert Solano on 12-22-2021 [facility] Work Phone: Basophil percentageon 2021 Chloride [Moles/Vol] 103 mmol/L 98-107 [facility] Work Phone: Glucose [Mass/Vol] 92 mg/dL 74-106 [facility] Work Phone: Potassium [Moles/Vol] 3.5 mmol/L 3.5-5.1 [facility] Work [facility]: Sodium [Moles/Vol] 138 mmol/L 136-145 [facility] Work Phone: [phone] WBC (Bld) [#/Vol] 11.2 10*3/uL 4.4-11.0 [facility] Work Phone: Blood erythrocytes count (nu mber/volume)on 12-19-2021 RBC (Bld) [#/Vol] 4.50 10*6/uL 4.6-6.2 [facility] Work Phone: [phone] Blood hemoglobin measurement (mass/volume)on 12-19-2021 Hemoglobin (Bld) [Mass/Vol] 12.2 g/dL 13.0-16.5 [facility] Work Phone: [phone] Blood platelet mean volumeon 12-19-2021 Platelet mean volume (Bld) [Entitic vol] 11.3 fL 6.2-12.0 [facility] Work Phone: Determination of erythrocyte mean corpuscular volume (MCV)on 12-19-2021 MCV (RBC) [Entitic vol] 85.6 fL 80-94 [facility] Work Phone: Hematocrit Auto (Bld) [Volum e fraction]on 12-19-2021 Hematocrit (Bld) [Volume fraction] 38.5 % 40-54 [facility] Work Phone: Laboratory - Chemistry and C hemistry - challengeon 12-19-2021 CO2 [Moles/Vol] 30.0 mmol/L 21.0-32.0 [facility] Work Phone: Urea nitrogen/Creatinine [Mass ratio] 27.1 mg/mg 10-20 [facility] Work Phone: Laboratory - Hematology and Cell countson 12-19-2021 Erythrocyte distribution width (RBC) [Entitic vol] 50.5 fL 35.1-43.9 [facility] Work Phone: Erythrocyte distribution width (RBC) [Ratio] 16.0 % 11.6-14.6 [facility] Work Phone: MCH (RBC) [Entitic mass] 27.1 pg 27.0-32.0 [facility] Work Phone: MCHC Auto (RBC) [Mass/Vol]on 12-19-2021 MCHC (RBC) [Mass/Vol] 31.7 g/dL 32-36 [facility] Work Phone: No Panel Informationon 12-19 Estimated GFR (MDRD) Amer 153 mL/min >60 [facility] Work Phone: Comment on above: GFR Calc Estimated GFR (MDRD) Non-Af Amer 126 mL/min >60 [facility] Work Phone: Comment on above: Non- GFR Calc Platelets bldon 12-19-2021 Platelets (Bld) [#/Vol] 363 10*3/uL 150-450 [facility] Work Phone: Serum or plasma calcium oral urement (mass/volume)on 12-19-2021 Calcium [Mass/Vol] 9.5 mg/dL 8.5-10.1 [facility] Work Phone: Serum or plasma creatinine m easurement (mass/volume)on 12-19-2021 Creatinine [Mass/Vol] 0.66 mg/dL 0.70-1.30 [facility] Work Phone: Comment on above: The validity of the calculated GFR & GFRAA in patients over 70 years has not been determined. Clinical correlation is essential. Serum or plasma urea nitroge n measurement (mass/volume)on 12-19-2021 Urea nitrogen [Mass/Vol] 18 mg/dL 7-18 [facility] Work Phone: Thin prep Papanicolaou smear with manual screeningon 12-19-2021 Thin prep Papanicolaou smear with manual screening 09-18 [facility] Work Phone: Laboratory - Coagulationon 0 12-12-2021 INR Coag (Bld) [Relative time] 2.0 {INR} [facility] Work Phone: Comment on above: Critical Value > 4.0 Whole blood prothrombin time on 12-12-2021 PT Coag (Bld) [Time] 23.9 s 11.7-14.9 [facility] Work Phone: ANES POSTPROC EVALon 022 ANES POSTPROC EVAL Normal [facility] Laboratory - Coagulationon 0 12-08-2021 INR Coag (Bld) [Relative time] 1.8 {INR} [facility] Work Phone: Comment on above: Critical Value > 4.0 Whole blood prothrombin time on 12-08-2021 PT Coag (Bld) [Time] 21.0 s 11.7-14.9 [facility] Work Phone: Absolute lymphocyte counton 12-05-2021 Lymphocytes Auto (Unsp spec) [#/Vol] 2.97 10*3/uL 0.83-4.51 [facility] Work Phone: Basophil percentageon 2021 Basophils/100 WBC (Bld) 0.6 % 0-1 [facility] Work Phone: Chloride [Moles/Vol] 106 mmol/L 98-107 [facility] Work Phone: Eosinophils/100 WBC (Bld) 2.3 % 0-5 [facility] Work Phone: Glucose [Mass/Vol] 107 mg/dL 74-106 [facility] Work Phone: Comment on above: Fasting Glucose resu lt from 100 to 125 mg/dL suggests IMPAIRED HOMEOSTASIS per A.D.A. criteria. Neutrophils (Bld) [#/Vol] 5.6 10*3/uL 2.0-7.7 [facility] Work Phone: Neutrophils/100 WBC (Bld) 60.2 % 47-70 [facility] Work Phone: Potassium [Moles/Vol] 3.4 mmol/L 3.5-5.1 [facility] Work Phone: Sodium [Moles/Vol] 139 mmol/L 136-145 [facility] Work Phone: WBC (Bld) [#/Vol] 9.3 10*3/uL 4.4-11.0 [facility] Work Phone: Blood erythrocytes count (nu mber/volume)on 12-05-2021 RBC (Bld) [#/Vol] 4.49 10*6/uL 4.6-6.2 [facility] Work Phone: Blood hemoglobin measurement (mass/volume)on 12-05-2021 Hemoglobin (Bld) [Mass/Vol] 12.1 g/dL 13.0-16.5 [facility] Work Phone: [phone] Blood lymphocytes/100 leukoc yteson 12-05-2021 Lymphocytes/100 WBC (Bld) 32.0 % 19-41 [facility] Work Phone: Blood monocytes/100 leukocyt eson 12-05-2021 Monocytes/100 WBC (Bld) 4.7 % 0-10 [facility] Work Phone: Blood platelet mean volumeon 12-05-2021 Platelet mean volume (Bld) [Entitic vol] 10.8 fL 6.2-12.0 [facility] Work Phone: Determination of erythrocyte mean corpuscular volume (MCV)on 12-05-2021 MCV (RBC) [Entitic vol] 84.9 fL 80-94 [facility] Work Phone: Hematocrit Auto (Bld) [Volum e fraction]on 12-05-2021 Hematocrit (Bld) [Volume fraction] 38.1 % 40-54 [facility] Work Phone: INR in Blood by Coagulation assayon 12-05-2021 INR Coag (Bld) [Relative time] 1.8 {INR} [facility] Work Phone: Laboratory - Chemistry and C hemistry - challengeon 12-05-2021 CO2 [Moles/Vol] 29.0 mmol/L 21.0-32.0 [facility] Work Phone: Urea nitrogen/Creatinine [Mass ratio] 25.4 mg/mg 10-20 [facility] Work Phone: Laboratory - Coagulationon 0 12-05-2021 PT Coag (PPP) [Time] 20.5 s 11.7-14.9 [facility] Work Phone: Laboratory - Hematology and Cell countson 12-05-2021 Erythrocyte distribution width (RBC) [Entitic vol] 48.5 fL 35.1-43.9 [facility] Work Phone: Erythrocyte distribution width (RBC) [Ratio] 15.7 % 11.6-14.6 [facility] Work Phone: Immature granulocytes/100 WBC (Bld) 0.200 % 0.0-0.9 [facility] Work Phone: Comment on above: IG% - Immature Granu locytes (promyelocytes, myelocytes and metamyelocytes) > 1% indicates that a LEFT SHIFT is Present. MCH (RBC) [Entitic mass] 26.9 pg 27.0-32.0 [facility] Work Phone: Nucleated RBC/100 WBC (Bld) [Ratio] 0 % 0-5 [facility] Work Phone: MCHC Auto (RBC) [Mass/Vol]on 12-05-2021 MCHC (RBC) [Mass/Vol] 31.8 g/dL 32-36 [facility] Work Phone: No Panel Informationon 12-05 Estimated GFR (MDRD) Amer 133 mL/min >60 [facility] Work Phone: Comment on above: GFR Calc Estimated GFR (MDRD) Non-Af Amer 110 mL/min >60 [facility] Work Phone: Comment on above: Non- GFR Calc Platelets bldon 12-05-2021 Platelets (Bld) [#/Vol] 363 10*3/uL 150-450 [facility] Work Phone: Serum or plasma calcium oral urement (mass/volume)on 12-05-2021 Calcium [Mass/Vol] 9.4 mg/dL 8.5-10.1 [facility] Work Phone: Serum or plasma creatinine m easurement (mass/volume)on 12-05-2021 Creatinine [Mass/Vol] 0.75 mg/dL 0.70-1.30 [facility] Work Phone: Comment on above: The validity of the calculated GFR & GFRAA in patients over 70 years has not been determined. Clinical correlation is essential. Serum or plasma urea nitroge n measurement (mass/volume)on 12-05-2021 Urea nitrogen [Mass/Vol] 19 mg/dL 7-18 [facility] Work Phone: Thin prep Papanicolaou smear with manual screeningon 12-05-2021 Thin prep Papanicolaou smear with manual screening 4 5-15 [facility] Work Phone: Basophil percentageon 2021 Basophil percentage 0 SEEN /hpf 0-5 [facility] Work Phone: Chloride [Moles/Vol] 104 mmol/L 98-[address] [facility] [address] [facility] Work Phone: Glucose [Mass/Vol] 90 mg/dL 74-106 [facility] Work Phone: Potassium [Moles/Vol] 3.7 mmol/L 3.5-5.1 [facility] Work Phone: Comment on above: Slight Hemolysis, Re sult may be falsely increased. Sodium [Moles/Vol] 138 mmol/L 136-145 [facility] Work Phone: WBC (Bld) [#/Vol] 10.7 10*3/uL 4.4-11.0 [facility] Work Phone: Bilirubin Test strip Ql (U)o n 12-01-2021 Bilirubin Ql (U) Negative Negative [facility] Work Phone: Blood erythrocytes count (nu mber/volume)on 12-01-2021 RBC (Bld) [#/Vol] 4.33 10*6/uL 4.6-6.2 [facility] Work Phone: Blood hemoglobin measurement (mass/volume)on 12-01-2021 Hemoglobin (Bld) [Mass/Vol] 11.6 g/dL 13.0-16.5 [facility] Work Phone: Blood platelet mean volumeon 12-01-2021 Platelet mean volume (Bld) [Entitic vol] 11.2 fL 6.2-12.0 [facility] Work Phone: Determination of erythrocyte mean corpuscular volume (MCV)on 12-01-2021 MCV (RBC) [Entitic vol] 85.2 fL 80-94 [facility] Work Phone: Hematocrit Auto (Bld) [Volum e fraction]on 12-01-2021 Hematocrit (Bld) [Volume fraction] 36.9 % 40-54 [facility] Work Phone: Ketones Test strip Ql (U)on 12-01-2021 Ketones Ql (U) Negative Negative [facility] Work Phone: Laboratory - Chemistry and C hemistry - challengeon 12-01-2021 CO2 [Moles/Vol] 27.0 mmol/L 21.0-32.0 [facility] Work Phone: Urea nitrogen/Creatinine [Mass ratio] 24.0 mg/mg 10-20 [facility] Work Phone: Laboratory - Coagulationon 0 12-01-2021 INR Coag (Bld) [Relative time] 1.6 {INR} [facility] Work Phone: Comment on above: Critical Value > 4.0 Laboratory - Hematology and Cell countson 12-01-2021 Erythrocyte distribution width (RBC) [Entitic vol] 47.9 fL 35.1-43.9 [facility] Work Phone: Erythrocyte distribution width (RBC) [Ratio] 15.5 % 11.6-14.6 [facility] Work Phone: MCH (RBC) [Entitic mass] 26.8 pg 27.0-32.0 [facility] Work Phone: MCHC Auto (RBC) [Mass/Vol]on 12-01-2021 MCHC (RBC) [Mass/Vol] 31.4 g/dL 32-36 [facility] Work Phone: Mucus LM Ql (Urine sed)on Mucus Ql (Urine sed) 0 SEEN /hpf [facility] Work Phone: Nitrite Test strip Ql (U)on 12-01-2021 Nitrite Ql (U) Negative Negative [facility] Work Phone: No Panel Informationon 12-01 Estimated GFR (MDRD) Amer 133 mL/min >60 [facility] Work Phone: Comment on above: GFR Calc Estimated GFR (MDRD) Non-Af Amer 110 mL/min >60 [facility] Work Phone: Comment on above: Non- GFR Calc Platelets bldon 12-01-2021 Platelets (Bld) [#/Vol] 336 10*3/uL 150-450 [facility] Work Phone: Protein Test strip Ql (U)on 12-01-2021 Protein Ql (U) 30 mg/dl Negative [facility] Work Phone: Serum or plasma calcium oral urement (mass/volume)on 12-01-2021 Calcium [Mass/Vol] 9.4 mg/dL 8.5-10.1 [facility] Work Phone: Serum or plasma creatinine m easurement (mass/volume)on 12-01-2021 Creatinine [Mass/Vol] 0.75 mg/dL 0.70-1.30 [facility] Work Phone: Comment on above: The validity of the calculated GFR & GFRAA in patients over 70 years has not been determined. Clinical correlation is essential. Serum or plasma urea nitroge n measurement (mass/volume)on 12-01-2021 Urea nitrogen [Mass/Vol] 18 mg/dL 7-18 [facility] Work Phone: Squamous epithelial cells de tection in urine sediment by light microscopyon 12-01-2021 Epithelial cells.squamous LM Ql (Urine sed) 0-5 SEEN /hpf 0-5 [facility] Work Phone: Thin prep Papanicolaou smear with manual screeningon 12-01-2021 Thin prep Papanicolaou smear with manual screening 7 5-15 [facility] Work Phone: Urine blood detectionon 11-05 RBC Ql (U) Negative Negative [facility] Work Phone: RBC Ql (U) 0 SEEN /hpf 0-5 [facility] Work Phone: Urine clarityon 12-01-2021 Clarity (U) Clear Clear [facility] Work Phone: Urine color determinationon 12-01-2021 Color (U) Yellow Yellow [facility] Work Phone: Urine glucose detectionon Glucose Ql (U) 50 mg/dl Normal [facility] Work Phone: Urine leukocyte esterase det ection by dipstickon 12-01-2021 Leukocyte esterase Test strip Ql (U) Negative Negative [facility] Work Phone: Urine pHon 12-01-2021 pH (U) 6.0 [pH] 5.0 - 8.0 [facility] Work Phone: Urine sediment bacteria coun t by microscopy (number/high power field)on 12-01-2021 Bacteria LM.HPF (Urine sed) [#/Area] 0 /[HPF] None Seen [facility] Work Phone: Urine sediment yeast count b y microscopy (number/high powered field)on 12-01-2021 Yeast LM.HPF (Urine sed) [#/Area] 2 /[HPF] None Seen [facility] Work Phone: Urine specific gravity measu rementon 12-01-2021 Specific gravity (U) [Rel density] 1.010 1.002-1.030 [facility] Work Phone: Urobilinogen Auto test strip Ql (U)on 12-01-2021 Urobilinogen Ql (U) Normal mg/dl Normal [facility] Work Phone: Whole blood prothrombin time on 12-01-2021 PT Coag (Bld) [Time] 19.8 s 11.7-14.9 [facility] Work Phone: Laboratory - Coagulationon 0 11-28-2021 INR Coag (Bld) [Relative time] 1.6 {INR} [facility] Work Phone: Comment on above: Critical Value > 4.0 Whole blood prothrombin time on 11-28-2021 PT Coag (Bld) [Time] 18.8 s 11.7-14.9 [facility] Work Phone: INR in Blood by Coagulation assayon 11-23-2021 INR Coag (Bld) [Relative time] 2.7 {INR} [facility] Work Phone: Laboratory - Coagulationon 0 11-23-2021 PT Coag (PPP) [Time] 28.0 s 11.7-14.9 [facility] Work Phone: Laboratory - Coagulationon 0 11-22-2021 INR Coag (Bld) [Relative time] 3.8 {INR} [facility] Work Phone: Comment on above: Critical Value > 4.0 Whole blood prothrombin time on 11-22-2021 PT Coag (Bld) [Time] 42.8 s 11.7-14.9 [facility] Work Phone: INR in Blood by Coagulation assayon 11-21-2021 INR Coag (Bld) [Relative time] 3.9 {INR} [facility] Work Phone: Laboratory - Coagulationon 0 11-21-2021 PT Coag (PPP) [Time] 37.7 s 11.7-14.9 [facility] Work Phone: Whole blood prothrombin time on 11-21-2021 PT Coag (Bld) [Time] 45.5 s 11.7-14.9 [facility] Work Phone: INR in Blood by Coagulation assayon 11-14-2021 INR Coag (Bld) [Relative time] 3.1 {INR} [facility] Work Phone: Laboratory - Coagulationon 0 11-14-2021 PT Coag (PPP) [Time] 31.4 s 11.7-14.9 [facility] Work Phone: Laboratory - Coagulationon 0 11-08-2021 INR Coag (Bld) [Relative time] 2.5 {INR} [facility] Work Phone: Comment on above: Critical Value > 4.0 Whole blood prothrombin time on 11-08-2021 PT Coag (Bld) [Time] 29.0 s 11.7-14.9 [facility] Work Phone: Basophil percentageon 2021 Chloride [Moles/Vol] 106 mmol/L 98-107 [facility] Work Phone: Glucose [Mass/Vol] 100 mg/dL 74-106 [facility] Work Phone: Comment on above: Fasting Glucose resu lt from 100 to 125 mg/dL suggests IMPAIRED HOMEOSTASIS per A.D.A. criteria. Potassium [Moles/Vol] 3.7 mmol/L 3.5-5.1 [facility] Work Phone: Sodium [Moles/Vol] 140 mmol/L 136-145 [facility] Work Phone: WBC (Bld) [#/Vol] 8.8 10*3/uL 4.4-11.0 [facility] Work Phone: Blood erythrocytes count (nu mber/volume)on 11-04-2021 RBC (Bld) [#/Vol] 4.05 10*6/uL 4.6-6.2 [facility] Work Phone: Blood hemoglobin measurement (mass/volume)on 11-04-2021 Hemoglobin (Bld) [Mass/Vol] 11.1 g/dL 13.0-16.5 [facility] Work Phone: Blood platelet mean volumeon 11-04-2021 Platelet mean volume (Bld) [Entitic vol] 10.8 fL 6.2-12.0 [facility] Work Phone: Determination of erythrocyte mean corpuscular volume (MCV)on 11-04-2021 MCV (RBC) [Entitic vol] 86.9 fL 80-94 [facility] Work Phone: Hematocrit Auto (Bld) [Volum e fraction]on 11-04-2021 Hematocrit (Bld) [Volume fraction] 35.2 % 40-54 [facility] Work Phone: INR in Blood by Coagulation assayon 11-04-2021 INR Coag (Bld) [Relative time] 1.8 {INR} [facility] Work Phone: Laboratory - Chemistry and C hemistry - challengeon 11-04-2021 CO2 [Moles/Vol] 26.0 mmol/L 21.0-32.0 [facility] Work Phone: Urea nitrogen/Creatinine [Mass ratio] 18.3 mg/mg 10-20 [facility] Work Phone: Laboratory - Coagulationon 0 11-04-2021 PT Coag (PPP) [Time] 20.4 s 11.7-14.9 [facility] Work Phone: Laboratory - Hematology and Cell countson 11-04-2021 Erythrocyte distribution width (RBC) [Entitic vol] 48.1 fL 35.1-43.9 [facility] Work Phone: Erythrocyte distribution width (RBC) [Ratio] 15.0 % 11.6-14.6 [facility] Work Phone: MCH (RBC) [Entitic mass] 27.4 pg 27.0-32.0 [facility] Work Phone: MCHC Auto (RBC) [Mass/Vol]on 11-04-2021 MCHC (RBC) [Mass/Vol] 31.5 g/dL 32-36 [facility] Work Phone: No Panel Informationon 11-04 D-Dimer Quantitative (PE/DVT) 0.56 FEU/ug/m 0.27-0.49 [facility] Work Phone: Comment on above: D-Dimer ELEVATED (>0 .49): Additional studies and clinicalassessments are indicated to conclude diagnosis of:Deep Vein Thrombosis (DVT) or Pulmonary Embolism (PE) Estimated GFR (MDRD) Amer 155 mL/min >60 [facility] Work Phone: Comment on above: GFR Calc Estimated GFR (MDRD) Non-Af Amer 128 mL/min >60 [facility] Work Phone: Comment on above: Non- GFR Calc Troponin I High Sensitivity 11 pg/mL 3.0-78.0 [facility] Work Phone: Comment on above: Please Note: New Fadumo t Units and Gender Specific Reference Ranges. For more information see Policy Stat Procedure [place] High Sensitivity Troponin (TNIH) and attachments. Platelets bldon 11-04-2021 Platelets (Bld) [#/Vol] 364 10*3/uL 150-450 [facility] Work Phone: Serum or plasma C reactive p rotein measurement (mass/volume)on 11-04-2021 CRP [Mass/Vol] 31.90 mg/L 0.0-3.0 [facility] Work Phone: Comment on above: C-Reactive Protein ( CRP) provides useful information for thediagnosis, therapy and monitoring of inflammatory processesand associated diseases. For the evaluation of Relative Riskfor Cardiovascular Disease, a High Sensitivity CRP (HSCRP)should be ordered. Serum or plasma calcium oral urement (mass/volume)on 11-04-2021 Calcium [Mass/Vol] 9.1 mg/dL 8.5-10.1 [facility] Work Phone: Serum or plasma creatinine m easurement (mass/volume)on 11-04-2021 Creatinine [Mass/Vol] 0.66 mg/dL 0.70-1.30 [facility] Work Phone: Comment on above: The validity of the calculated GFR & GFRAA in patients over 70 years has not been determined. Clinical correlation is essential. Serum or plasma urea nitroge n measurement (mass/volume)on 11-04-2021 Urea nitrogen [Mass/Vol] 12 mg/dL 7-18 [facility] Work Phone: Thin prep Papanicolaou smear with manual screeningon 11-04-2021 Thin prep Papanicolaou smear with manual screening 8 5-15 [facility] Work Phone: Complete Urinalysison 2021 Appearance (U) Clear Normal Clear [facility] Comment on above: Result Comment: . Performed By: #### C UA2 ####[employer] [place] [address] Bacteria Moderate Abnormal Negative [facility] Comment on above: Result Comment: . Performed By: #### C UA2 ####[employer] [place], [place] Bilirubin,Urine Negative Normal Negative [facility] Comment on above: Result Comment: . Performed By: #### C UA2 ####[address] [place], [place] Cast, Hyaline Negative Normal Negative [facility] Comment on above: Result Comment: . Performed By: #### C UA2 ####[address] [place], [place] Color (U) Yellow Normal Lt. Yellow [facility] Comment on above: Result Comment: . Performed By: #### C UA2 ####[address] [address] [address] [place], [place] Glucose Ql (U) Normal Normal Normal (<70) [facility] Comment on above: Result Comment: . Performed By: #### C UA2 ####[address] [place], [place] Ketone,Urine Negative Normal Negative [facility] Comment on above: Result Comment: . Performed By: #### C UA2 ####[address] [place], [place] Leukocytes,Urine Negative Normal Negative [facility] Comment on above: Result Comment: . Performed By: #### C UA2 ####[address] [place], [place] Mucous Threads Few Normal Negative [facility] Comment on above: Result Comment: . Performed By: #### C UA2 ####[address] [place], [place] Nitrites,Urine Negative Normal Negative [facility] Comment on above: Result Comment: . Performed By: #### C UA2 ####[address] [place], [place] Occult Blood,Urine 0.1 mg/dL Abnormal Negative [facility] Comment on above: Result Comment: . Performed By: #### C UA2 ####[address] [address] [place], [place] pH,Urine 5.5 Normal 5.0-8.0 [facility] Comment on above: Result Comment: . Performed By: #### C UA2 ####[address] [place], [place] Protein (U) [Mass/Vol] 10 mg/dL Abnormal Negative [facility] Comment on above: Result Comment: . Performed By: #### C UA2 ####[address] RBC, Urine 26 - 50 Abnormal 0-2 [facility] Comment on above: Result Comment: . Performed By: #### C UA2 ####[address] Specific [place],Urine 1.023 Normal 1.005 - 1.030 [facility] Comment on above: Result Comment: . Performed By: #### C UA2 ####[address] Squamous Epithelial Negative Normal 3-5 [facility] Comment on above: Result Comment: . Performed By: #### C UA2 ####[address] Urobilinogen,Urine Normal Normal Normal (0-1) [facility] Comment on above: Result Comment: . Performed By: #### C UA2 ####[address] WBC, Urine 0 - 2 Normal 0-5 [facility] Comment on above: Result Comment: . Performed By: #### C UA2 ####[address] Urinalysison 11-01-2021 Appearance (U) Clear Clear [...] Interpretation and review of laboratory results Abnormal [facility] Ketones Ql (U) Negative Negative mg/dL [facility] [...] Protein (U) [Mass/Vol] 10 mg/dL Abnormal Negative [facility] Comment on above: . RBC, UA 26-50 Abnormal 0 - 2 /[HPF] [facility] Comment on above: . Specific [place], Urine 1.023 [facility] Comment on above: . Squam Epithel, UA Negative 3 - 5 /[HPF] [facility] Comment on above: . Urobilinogen, Urine Normal Normal ( 0-1) mg/dL [facility] Comment on above: . WBC, UA 0-2 0 - 5 /[HPF] [facility] Comment on above: . Test Performed by [facility], [address] [place] [id number] [place] [address] LAB [facility] Basic Metabolic Panelon 06-2 Anion gap [Moles/Vol] 6 mmol/L Normal 3-13 [facility] Comment on above: Performed By: #### P T/AP, TROPN, BMP3, HEMDF #### [address] [address] Calcium [Mass/Vol] 9.1 mg/dL Normal 8.4-10.4 [facility] Comment on above: Performed By: #### P T/AP, TROPN, BMP3, HEMDF #### [address] [address] CO2 [Moles/Vol] 28 mmol/L Normal 22-30 [facility] Comment on above: Performed By: #### P T/AP, TROPN, BMP3, HEMDF #### [address] [address] Glucose [Mass/Vol] 120 mg/dL High 70-100 [facility] Comment on above: Performed By: #### P T/AP, TROPN, BMP3, HEMDF #### [facility] [address] [place], [place] Urea nitrogen [Mass/Vol] 17 mg/dL Normal 7-17 [facility] Comment on above: Performed By: #### P T/AP, TROPN, BMP3, HEMDF #### [facility] [address] [place], [place] Creatinine [Mass/Vol] 0.65 mg/dL Normal 0.52-1.25 [facility] Comment on above: Performed By: #### P T/AP, TROPN, BMP3, HEMDF #### [facility] [address] [place], [place] eGFR OTHER > 90.0 Normal >60 [facility] Comment on above: Result Comment: KDIG [...] #### P T/AP, TROPN, BMP3, HEMDF #### [facility] [address] [place], [place] GFR/1.73 sq M.predicted among blacks MDRD (S/P/Bld) [Vol rate/Area] mL/min/{1.73_m2} Normal >60 [facility] Comment on above: Performed By: #### P T/AP, TROPN, BMP3, HEMDF #### [facility] [address] [place] [address] Potassium [Moles/Vol] 3.8 mmol/L Normal 3.5-5.1 [facility] Comment on above: Performed By: #### P T/AP, TROPN, BMP3, HEMDF #### [address] [address] Chloride [Moles/Vol] 101 mmol/L Normal 98-107 [facility] Comment on above: Performed By: #### P T/AP, TROPN, BMP3, HEMDF #### [facility] [address] [place], [place] Sodium [Moles/Vol] 134 mmol/L Low 135-145 [facility] Comment on above: Performed By: #### P T/AP, TROPN, BMP3, HEMDF #### [address] Anion gap [Moles/Vol] 6 mmol/L 3 - 13 mmol/L [facility] Calcium [Mass/Vol] 9.1 mg/dL 8.4 - 10. 4 mg/dL [facility] Chloride [Moles/Vol] 101 mmol/L 98 - 10 7 mmol/L [facility] CO2 [Moles/Vol] 28 mmol/L 22 - 30 mmol/L [facility] Creatinine [Mass/Vol] 0.65 mg/dL 0.52 - 1.25 mg/dL [facility] EGFR IF NonAfrican Algerian >90.0 >60 mL/min [facility] Comment on above: KDIGO guidelines pro [...] 120 mg/dL High 70 - 100 mg/dL [facility] Interpretation and review of laboratory results Abnormal [facility] Potassium [Moles/Vol] 3.8 mmol/L 3.5 - 5.1 mmol/L [facility] Sodium [Moles/Vol] 134 mmol/L Low 135 - 145 mmol/L [facility] Urea nitrogen (BldV) [Mass/Vol] 17 mg/dL 7 - 17 mg/dL [facility] Test Performed by [address] LAB [facility] CBC with Auto Differentialon 10-31-2021 [...] 11.3 g/dL Low 13.0 - 18.0 g/dL [facility] Interpretation and review of laboratory results [...] - 10.7 10*3/uL [facility] Test Performed by [address] LAB [facility] CR Abdomen APon 10-31-2021 CR Abdomen AP Patient Name: ANDREW SIFUENTES Diagnostic Radiology ACCESSION EXAM DATE/TIME PROCEDURE ORDERING PROVIDER [id number] 10/31/2021 20:36 EDT CR Abdomen AP [id number] -MYRON DURAN CPT code 66837 Reason For Exam (CR Abdomen AP) vp product shunt, 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 CHEST PORTABLE [...] Transcribed Date and Time: 10/31/2021 8:49 Normal [facility] CR Chest Portableon 11-01-19 22 CR Chest Portable Patient Name: ANDREW SIFUENTES Diagnostic Radiology ACCESSION EXAM DATE/TIME PROCEDURE ORDERING PROVIDER [id number] 10/31/2021 20:36 EDT CR Chest Portable [id number] ISAACDURAN MYRON CPT code 29913 Reason For Exam (CR Chest Portable) AMS [...] Transcribed Date and Time: 10/31/2021 8:49 Normal [facility] CT HEAD WO CONTRASTon 2021 Patient Name: ANDREW SIFUENTES Computed Tomography ACCESSION EXAM DATE/TIME PROCEDURE ORDERING PROVIDER [id number] 10/31/2021 20:[address] Head or Brain w/o [id number] -MYRON DURAN Contrast CPT code 28830 Reason For Exam (CT Head or Brain w/o Contrast) AMS, previous ANALYTICS SENIOR MANAGER shunt Report Examination: CT Head Clinical Information: AMS, previous ANALYTICS SENIOR MANAGER shunt Comparison: 10/26/2021, MRI 10/27/2021 Findings: Serial [...] J Transcribed Date and Time: 10/31/2021 8:54 [facility] Alan Hernandez MD - 10/31/2021 Patient Name: ANDREW SIFUENTES Computed Tomography ACCESSION EXAM DATE/TIME PROCEDURE ORDERING PROVIDER [id number] 10/31/2021 20:[address] Head or Brain w/o [id number] -MYRON DURAN Contrast CPT code 20644 Reason For Exam (CT Head or Brain w/o Contrast) AMS, previous ANALYTICS SENIOR MANAGER shunt Report Examination: CT Head Clinical Information: AMS, previous ANALYTICS SENIOR MANAGER shunt Comparison: 10/26/2021, MRI 10/27/2021 Findings: Serial [...] Brain w/o Contrast Patient Name: ANDREW SIFUENTES [facility]#: [id number] Computed Tomography ACCESSION EXAM DATE/TIME PROCEDURE ORDERING PROVIDER [id number] 10/31/2021 20:[address] Head or Brain w/o [id number] -MYRON DURAN Contrast CPT code 07647 Reason For Exam (CT Head or Brain w/o Contrast) AMS, previous ANALYTICS SENIOR MANAGER shunt Report Examination: CT Head Clinical Information: AMS, previous ANALYTICS SENIOR MANAGER shunt Comparison: 10/26/2021, MRI 10/27/2021 Findings: Serial [...] Transcribed Date and Time: 10/31/2021 8:54 Normal [facility] ED Provider Noteon ED Provider Note Emergency Department Encounter [facility] EMERGENCY DEPT Patient: Andrew Sifuentes : [...] is cooperative and calm. According to the snf, he has been more lethargic than normal, [...] [employer] Dante Kim MD 10/31/21 2211 [facility] ED Provider Note [facility] EMERGENCY DEPT EMERGENCY DEPARTMENT ENCOUNTER Pt Name: Andrew Sifuentes Birthdate 1950 Date of evaluation: 10/31/2021 Provider: Myron Duran MD CHIEF COMPLAINT Chief Complaint Patient presents with ? Altered Mental Status Pt presents to ED via [facility] for complaint listed. Pt is from [place] [facility]. Pt's LKW was 1000 hours [...] have a history of hydrocephalus with a ANALYTICS SENIOR MANAGER shunt. 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 REVIEW OF [...] (HCC) ? Kidney stone ? Neuropathy ? 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 Normal [facility] EKG 12 Lead - Chest Painon 0 10-31-2021 [facility] Test Date: 2021-10-31 Pat Name: ANDREW SIFUENTES Department: [facility] Room: 40 Gender: M [employer]: AJG : 1950 Requested By: MYRON DURAN Order Number: [id number] Reading MD: Dante Kim Measurements Intervals [place] Rate: 91 P: 41 [place]: 154 QRS: 50 QRSD: 147 T: 8 QT: 385 QTc: 474 Interpretive Statements Sinus rhythm Right bundle branch block Electronically Signed On 10-31-2021 20:36:25 EDT by Dante Kim [facility] CARDIOLOGY Dante Kim M D - 10/31/2021 [facility] Test Date: 2021-10-31 Pat Name: ANDREW SIFUENTES Department: [facility] Room: 40 Gender: M [employer]er: ANDRES : 1950 Requested By: MYRON DURAN Order Number: [id number] Latosha MD: Dante Kim Measurements Intervals [place] Rate: 91 P: 41 [place]: 154 QRS: 50 QRSD: 147 T: 8 QT: 385 QTc: 474 Interpretive Statements Sinus rhythm Right bundle branch block Electronically Signed On 10-31-2021 20:36:25 EDT by Dante Kim [facility] Work Phone: EKG 12 Lead - Chest PainOrde red By: Dante Kim on 10-31-2021 [employer] Work Phone: Hemogram w/ Autodiffon 10-31 Abs Baso Cnt 0.1 10*3/uL Normal 0.0-0.2 [facility] [employer] [facility] Comment on above: Performed By: #### P T/AP, TROPN, BMP3, HEMDF #### [facility] [employer] [address] [place] [address] Abs Neutrophile Cnt 6.0 10*3/uL Normal 1.8-7.0 [facility] [employer] [facility] Comment on above: Performed By: #### P T/AP, TROPN, BMP3, HEMDF #### [facility] [employer] [address] [place] [address] Basophils/100 WBC (Bld) 1.1 % Normal 0.0-2.0 [facility] Comment on above: Performed By: #### P T/AP, TROPN, BMP3, HEMDF #### [facility] [employer] [facility] [address] [place] [address] Eosinophils (Bld) [#/Vol] 0.2 10*3/uL Normal 0.0-0.5 [facility] Comment on above: Performed By: #### P T/AP, TROPN, BMP3, HEMDF #### [facility] [employer] [address] [place] [address] Eosinophils/100 WBC (Bld) 2.3 % Normal 1.0-6.0 [facility] Comment on above: Performed By: #### P T/AP, TROPN, BMP3, HEMDF #### [place] [address] [place], [place] Erythrocyte distribution width (RBC) [Ratio] 17.2 % High 11.5-14.5 [facility] Comment on above: Performed By: #### P T/AP, TROPN, BMP3, HEMDF #### [address] [place], [place] Granulocytes/100 WBC (Bld) 61.8 % Normal 40.0-80.0 [facility] Comment on above: Performed By: #### P T/AP, TROPN, BMP3, HEMDF #### [address] [place], [place] Hematocrit (Bld) [Volume fraction] 35.0 % Low 40.0-52.0 [facility] Comment on above: Performed By: #### P T/AP, TROPN, BMP3, HEMDF #### [address] [place], [place] Hemoglobin (Bld) [Mass/Vol] 11.3 g/dL Low 13.0-18.0 [facility] Comment on above: Performed By: #### P T/AP, TROPN, BMP3, HEMDF #### [address] [place], [place] Lymphocytes (Bld) [#/Vol] 2.8 10*3/uL Normal 1.0-4.3 [facility] Comment on above: Performed By: #### P T/AP, TROPN, BMP3, HEMDF #### [address] [place], [place] Lymphocytes/100 WBC (Bld) 29.2 % Normal 20.0-40.0 [facility] Comment on above: Performed By: #### P T/AP, TROPN, BMP3, HEMDF #### [address] [place], [place] MCH (RBC) [Entitic mass] 27.5 pg Normal 26.0-34.0 [facility] Comment on above: Performed By: #### P T/AP, TROPN, BMP3, HEMDF #### [address] [place], [place] MCHC 32.3 % Normal 32.0-36.0 [facility] Comment on above: Performed By: #### P T/AP, TROPN, BMP3, HEMDF #### [address] [place], [place] MCV (RBC) [Entitic vol] 85.0 fL Normal 80.0-98.0 [facility] Comment on above: Performed By: #### P T/AP, TROPN, BMP3, HEMDF #### [address] [place], [place] Monocytes (Bld) [#/Vol] 0.5 10*3/uL Normal 0.0-0.8 [facility] Comment on above: Performed By: #### P T/AP, TROPN, BMP3, HEMDF #### [address] [place], [place] Monocytes/100 WBC (Bld) 5.6 % Normal 2.0-10.0 [facility] Comment on above: Performed By: #### P T/AP, TROPN, BMP3, HEMDF #### [address] [place], [place] Platelet mean volume (Bld) [Entitic vol] 8.6 fL Normal 7.4-12.4 [facility] Comment on above: Result Comment: MPV is a calculated measurement using platelet volume ratio. Performed By: #### P T/AP, TROPN, BMP3, HEMDF #### [address] [place], [place] Platelets (Bld) [#/Vol] 348 10*3/uL Normal 140-440 [facility] Comment on above: Performed By: #### P T/AP, TROPN, BMP3, HEMDF #### [address] [place], [place] RBC (Bld) [#/Vol] 4.12 10*6/uL Low 4.40-5.90 [facility] Comment on above: Performed By: #### P T/AP, TROPN, BMP3, HEMDF #### [facility] [address] [place] [address] WBC (Bld) [#/Vol] 9.7 10*3/uL Normal 3.6-10.7 [facility] Comment on above: Performed By: #### P T/AP, TROPN, BMP3, HEMDF #### [facility] [address] [place] [address] Laboratory - Coagulationon 0 10-31-2021 INR Coag (Bld) [Relative time] 2.0 {INR} [facility] Work Phone: Comment on above: Critical Value > 4.0 No Panel Informationon 10-31 Radiology Study observation (narrative) [facility] Work Phone: PROTIME/INR & PTTon 11-01-19 22 aPTT Coag (Bld) [Time] 39.2 s High 20.0 - 30.5 s [facility] Comment on above: NOTE: The therapeuti c time for Heparin anticoagulation, based on Xa activity inhibition, is an APTT of 46-80 seconds. INR Coag (Bld) [Relative time] 1.9 {INR} High [facility] Comment on above: Recommended Anticoag ulant [...] Interpretation and review of laboratory results Abnormal [facility] PT Coag (PPP) [Time] 19.8 s High 9.0 - 12.0 s [facility] Comment on above: . Test Performed by [facility], [address] [place] [address] [facility] Protime AND APTTon 2 aPTT Coag (Bld) [Time] 39.2 s High 20.0-30.5 [facility] Comment on above: Result Comment: NOTE : The therapeutic time for Heparin anticoagulation, based on Xa activity inhibition, is an APTT of 46-80 seconds. Performed By: #### P T/AP, TROPN, BMP3, HEMDF #### [address] [address] INR 1.9 High 0.9-1.1 [facility] Comment on above: Result [...] P T/AP, TROPN, BMP3, HEMDF #### [address] [address] PT Coag (PPP) [Time] 19.8 s High 9.0-12.0 [facility] Comment on above: Result Comment: . Performed By: #### P T/AP, TROPN, BMP3, HEMDF #### [address] [address] Troponin Ion 10-31-2021 Troponin I.cardiac [Mass/Vol] ng/mL Normal 0.000-0.034 [facility] Comment on above: Result Comment: . Performed By: #### P T/AP, TROPN, BMP3, HEMDF #### [address] [address] Troponin x1on 10-31-2021 Troponin I.cardiac [Mass/Vol] ng/mL 0.000 - 0.034 ng/mL [facility] Comment on above: . Test Performed by [facility], [address] [place] [id number] [place] [address] LAB [facility] Whole blood prothrombin time on 10-31-2021 PT Coag (Bld) [Time] 23.7 s 11.7-14.9 [facility] Work Phone: XR ABDOMEN (KUB) (SINGLE AP VIEW)on 10-31-2021 Patient Name: ANDREW SIFUENTES Diagnostic Radiology ACCESSION EXAM DATE/TIME PROCEDURE ORDERING PROVIDER [id number] 10/31/2021 20:36 EDT CR Abdomen AP [id number] -MYRON DURAN CPT code 15797 Reason For Exam (CR Abdomen AP) vp product shunt, 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 CHEST PORTABLE [...] WENDELL Transcribed Date and Time: 10/31/2021 8:49 [facility] Huang Munoz MD - 10/31/2021 Patient Name: ANDREW SIFUENTES Diagnostic Radiology ACCESSION EXAM DATE/TIME PROCEDURE ORDERING PROVIDER [id number] 10/31/2021 20:36 EDT CR Abdomen AP [id number] MYRON GALINDO CPT code 15813 Reason For Exam (CR Abdomen AP) vp product shunt, 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 CHEST PORTABLE [...] and Time: 10/31/2021 8:49 [facility] Work Phone: [facility] Work Phone: XR CHEST PORTABLEon 11-01-19 Patient Name: ANDREW SIFUENTES Diagnostic Radiology ACCESSION EXAM DATE/TIME PROCEDURE ORDERING PROVIDER [id number] 10/31/2021 20:36 EDT CR Chest Portable [id number] PERDOMO CPT code 96972 Reason For Exam (CR Chest Portable) AMS [...] WENDELL Transcribed Date and Time: 10/31/2021 8:49 [facility] Huang Reynoso MD - 10/31/2021 Patient Name: ANDREW SIFUENTES Diagnostic Radiology ACCESSION EXAM DATE/TIME PROCEDURE ORDERING PROVIDER [id number] 10/31/2021 20:36 EDT CR Chest Portable [id number] MYRON GALINDO CPT code 65784 Reason For Exam (CR Chest Portable) AMS [...] and Time: 10/31/2021 8:49 [facility] Work Phone: 1 XR CHEST PORTABLEOrdered By: Huang Reynoso on 10-31-2021 [facility] Work Phone: Lupus Anticoagulanton 2021 DRVVT Confirmation Test Not Applicable Negative ratio [facility] Work Phone: 1 dRVVT Screen 38 [facility] Work Phone: [phone] Hex Phosph Neut Test Not Applicable Negative NA [facility] Work Phone: [phone] Interpretation and review of laboratory results Abnormal [facility] Work Phone: 1 LUPUS INTERPRETATION See Note [...] has not already been performed. Performed by [employer], [address] [place] [id number] [email or web address], Quiana Castro MD - Lab. Director Platelet Neutralization Not Applicable Negative NA [facility] Work Phone: [phone] PTT-D Heparin Neutralized 48 [facility] Work Phone: [phone] PTT-LA 55 High [facility] Work Phone: [phone] Reptilase Tm 17.6 <=21.9 sec [facility] Work Phone: [phone] Thrombin Time 25.3 High [facility] Work Phone: [phone] [facility] Work Phone: [phone] Lupus Anticoagulant Reflexiv e Panelon 10-29-2021 aPTT Coag (Bld) [Time] 55 s High 32-48 [facility] Comment on above: Performed By: #### C OVAG #### [facility] [address] [place] [address] aPTT Coag (Bld) [Time] 48 s Normal 32-48 [facility] Comment on above: Performed By: #### C OVAG #### [facility] [address] [place] [address] DRVVT 1:1 Mix Not Applicable Normal 33-44 [facility] Work Phone: Comment on above: Performed By: #### C OVAG #### [facility] [address] [place] [address] dRVVT Confirmation Not Applicable Normal Negative [facility] Comment on above: Performed By: #### C OVAG #### [facility] [address] [place] [address] dRVVT Screen 38 sec Normal 33-44 [facility] Comment on above: Performed By: #### C OVAG #### [facility] [address] [place] [address] Hexagonal Phospholipid Neutral Reflex Not Applicable Normal Negative [facility] Comment on above: Performed By: #### C OVAG #### [facility] [address] [place] [address] Lupus Anticoagulant Interpretation See Note Normal [facility] Comment on above: Result Comment: Lupu [...] has not already been performed. Performed by [employer], [address] [place] [id number] [email or web address], Quiana Castro MD - Lab. Director Performed By: #### C OVAG #### [facility] [address] [place] [address] Platelet Neutralization (PTT-D, Confirm) Not Applicable Normal Negative [facility] Comment on above: Performed By: #### C OVAG #### [facility] [address] [place] [address] PT Coag (PPP) [Time] 14.7 s Normal 12.0-15.5 [facility] Work Phone: Comment on above: Performed By: #### C OVAG #### [facility] [address] [place] [address] PTT-D 1:1 Mix Not Applicable Normal 32-48 [facility] Work Phone: Comment on above: Performed By: #### C OVAG #### [place] [address] [place] [address] Reptilase Time 17.6 sec Normal <=21.9 [facility] Comment on above: Performed By: #### C OVAG #### [place] [address] [place] [address] Thrombin Time 25.3 sec High 14.7-19.5 [facility] Comment on above: Performed By: #### C OVAG #### [place] [address] [place] [address] POCT COVID-19, Antigenon SARS-CoV-2 Nucleocapsid Antigen Negative Negative [facility] Comment on above: A negative result does not rule out the possibility of SARS-CoV-2 infection. NAAT-based methods should be considered for symptomatic patients presenting greater than seven days after onset of symptoms. Method: Lateral flow immunoassay. Fact sheets for healthcare providers and patients can be found at the following sites: https://www.fda.gov/media/153176/download https://www.fda.gov/media/126001/download Test Performed by [facility], [address] [place], [place] [id number] [place] [address] LAB [facility] Prothrombin Timeon 2 INR 2.7 High 0.9-1.1 [facility] Comment on above: Result [...] Infarction Performed By: #### P T #### [facility] [address] [place] [address] PT Coag (PPP) [Time] 27.4 s High 9.0-12.0 [facility] Comment on above: Result Comment: . Performed By: #### P T #### [facility] [address] [place] [address] Protime-INRon 10-29-2021 INR Coag (Bld) [Relative time] 2.7 {INR} High [facility] Work Phone: Comment on above: Recommended [...] Interpretation and review of laboratory results Abnormal [facility] Work Phone: PT Coag (PPP) [Time] 27.4 s High 9.0 - 12.0 s [facility] Work Phone: Comment on above: . Test Performed by [facility], [address] [place], [place] [address] [facility] LAB [facility] Work Phone: SARS-CoV-2 Antigenon 022 SARS-CoV-2 Antigen Negative Normal Negative [facility] Comment on above: Result Comment: A negative result does not rule out the possibility of SARS-CoV-2 infection. NAAT-based methods should be considered for symptomatic patients presenting greater than seven days after onset of symptoms. Method: Lateral flow immunoassay. Fact sheets for healthcare providers and patients can be found at the following sites: https://www.[address] [address].gov/media/948903/download https://www.[address].gov/media/100770/download Performed By: #### C OVAG #### [facility] [address] [place] [address] CBCon 10-28-2021 Hematocrit (Bld) [Volume fraction] 33.4 % Low 40.0 - 52.0 % [facility] Work Phone: 1 Hemoglobin (Bld) [Mass/Vol] 11.0 g/dL Low 13.0 - 18.0 g/dL [employer] Work Phone: 1 Interpretation and review of laboratory results Abnormal [facility] Work Phone: MCH (RBC) [Entitic mass] 27.8 pg 26.0 - 34.0 pg [facility] Work Phone: MCHC (RBC) [Mass/Vol] 32.8 % 32.0 - 36.0 % [facility] Work Phone: MCV (RBC) [Entitic vol] 84.8 fL 80.0 - 98.0 fL [employer] Work Phone: Platelet distribution width (Bld) [Ratio] 17.1 % High 11.5 - 14.5 % [facility] Phone: Platelet mean volume (Bld) [Entitic vol] 8.3 fL 7.4 - 12.4 fL [facility] Work Phone: Comment on above: MPV is a calculated measurement using platelet volume ratio. Platelets (Bld) [#/Vol] 344 10*3/uL 140 - 440 10*3/uL [employer] Work Phone: [phone] RBC (Bld) [#/Vol] 3.94 10*6/uL Low 4.40 - 5.9 0 10*6/uL [employer] Work Phone: ) [phone] WBC (Bld) [#/Vol] 10.0 10*3/uL 3.6 - 10.7 10*3/uL [employer] Work Phone: [phone] Test Performed by [facility], [address] [place] [address] [facility] LAB [facility] Work Phone: Comp Metabolic Panelon 10-28 ALP [Catalytic activity/Vol] 103 U/L Normal 38-126 [facility] Comment on above: Performed By: #### C A19O, LUPUS #### The performing lab is in the report. #### NSEO #### [facility] #### HEMDF, LDH3, BMP3, MG3, PT, CEA2 #### [facility] [address] [place] [address] #### B2GPM, B2GPA, B2GPG #### [address] ALT [Catalytic activity/Vol] 26 U/L Normal 0-49 [facility] Comment on above: Result Comment: The ALT test is performed by an updated assay method. Please note that the reference intervals have been changed and are now sex specific. Performed By: #### C A19O, LUPUS #### The performing lab is in the report. #### NSEO #### [facility] #### HEMDF, LDH3, BMP3, MG3, PT, CEA2 #### [facility] [address] [place] [address] #### B2GPM, B2GPA, B2GPG #### [address] AST [Catalytic activity/Vol] 24 U/L Normal 15-46 [facility] Comment on above: Performed By: #### C A19O, LUPUS #### The performing lab is in the report. #### NSEO #### [facility] #### HEMDF, LDH3, BMP3, MG3, PT, CEA2 #### [facility] [address] [place] [address] #### B2GPM, B2GPA, B2GPG #### [address] Calcium [Mass/Vol] 9.1 mg/dL Normal 8.4-10.4 [facility] Comment on above: Performed By: #### C A19O, LUPUS #### The performing lab is in the report. #### NSEO #### [facility] #### HEMDF, LDH3, BMP3, MG3, PT, CEA2 #### [place] [address] [place] [address] #### B2GPM, B2GPA, B2GPG #### [address] Glucose [Mass/Vol] 117 mg/dL High 70-100 [facility] Comment on above: Performed By: #### C A19O, LUPUS #### The performing lab is in the report. #### NSEO #### [facility] #### HEMDF, LDH3, BMP3, MG3, PT, CEA2 #### [address] [place] [address] #### B2GPM, B2GPA, B2GPG #### [address] Urea nitrogen [Mass/Vol] 16 mg/dL Normal 7-17 [facility] Comment on above: Performed By: #### C A19O, LUPUS #### The performing lab is in the report. #### NSEO #### [facility] #### HEMDF, LDH3, BMP3, MG3, PT, CEA2 #### [address] [place] [address] #### B2GPM, B2GPA, B2GPG #### [address] Anion gap [Moles/Vol] 5 mmol/L Normal 3-13 [facility] Comment on above: Performed By: #### C A19O, LUPUS #### The performing lab is in the report. #### NSEO #### [facility] #### HEMDF, LDH3, BMP3, MG3, PT, CEA2 #### [address] [place] [address] #### B2GPM, B2GPA, B2GPG #### [address] Bilirubin [Mass/Vol] 0.4 mg/dL Normal 0.2-1.3 [facility] Comment on above: Performed By: #### C A19O, LUPUS #### The performing lab is in the report. #### NSEO #### [facility] #### HEMDF, LDH3, BMP3, MG3, PT, CEA2 #### [address] [place] #### B2GPM, B2GPA, B2GPG #### [address] CO2 [Moles/Vol] 29 mmol/L Normal 22-30 [facility] Comment on above: Performed By: #### C A19O, LUPUS #### The performing lab is in the report. #### NSEO #### [facility] #### HEMDF, LDH3, BMP3, MG3, PT, CEA2 #### [address] [place] [address] #### B2GPM, B2GPA, B2GPG #### [address] Creatinine [Mass/Vol] 0.71 mg/dL Normal 0.52-1.25 [facility] Comment on above: Performed By: #### C A19O, LUPUS #### The performing lab is in the report. #### NSEO #### [facility] #### HEMDF, LDH3, BMP3, MG3, PT, CEA2 #### [address] [place] [address] #### B2GPM, B2GPA, B2GPG #### [address] eGFR OTHER > 90.0 Normal >60 [facility] Comment on above: Result Comment: KDIG [...] renal tubular creatinine secretion. Performed By: #### Eileen Montanez LUPUS #### The performing lab is in the report. #### NSEO #### [facility] #### HEMDF, LDH3, BMP3, MG3, PT, CEA2 #### [facility] [employer] [facility] [address] [place] [address] #### B2GPM, B2GPA, B2GPG #### [facility] [employer] [address] [phone] GFR/1.73 sq M.predicted among blacks MDRD (S/P/Bld) [Vol rate/Area] mL/min/{1.73_m2} Normal >60 [facility] Comment on above: Performed By: #### Eileen Shetty9O LUPUS #### The performing lab is in the report. #### NSEO #### [facility] #### HEMDF, LDH3, BMP3, MG3, PT, CEA2 #### [facility] [employer] [facility] [address] [place] [address] #### B2GPM, B2GPA, B2GPG #### [address] [phone] Protein [Mass/Vol] 7.1 g/dL Normal 6.3-8.2 [facility] Comment on above: Performed By: #### C A19O, LUPUS #### The performing lab is in the report. #### NSEO #### [facility] #### HEMDF, LDH3, BMP3, MG3, PT, CEA2 #### [facility] [address] [place] [address] #### B2GPM, B2GPA, B2GPG #### [address] [phone] Potassium [Moles/Vol] 3.5 mmol/L Normal 3.5-5.1 [facility] Comment on above: Performed By: #### C A19O, LUPUS #### The performing lab is in the report. #### NSEO #### [facility] #### HEMDF, LDH3, BMP3, MG3, PT, CEA2 #### [place] [address] [place] [address] #### B2GPM, B2GPA, B2GPG #### [address] Sodium [Moles/Vol] 138 mmol/L Normal 135-145 [facility] Comment on above: Performed By: #### C A19O, LUPUS #### The performing lab is in the report. #### NSEO #### [facility] #### HEMDF, LDH3, BMP3, MG3, PT, CEA2 #### [place] [address] [place] [address] #### B2GPM, B2GPA, B2GPG #### [address] [address] Albumin [Mass/Vol] 3.7 g/dL Normal 3.5-5.0 [facility] Comment on above: Performed By: #### C A19O, LUPUS #### The performing lab is in the report. #### NSEO #### [facility] #### HEMDF, LDH3, BMP3, MG3, PT, CEA2 #### [place] [address] [place] [address] #### B2GPM, B2GPA, B2GPG #### [address] [address] Chloride [Moles/Vol] 104 mmol/L Normal 98-107 [facility] Comment on above: Performed By: #### C A19O, LUPUS #### The performing lab is in the report. #### NSEO #### [facility] #### HEMDF, LDH3, BMP3, MG3, PT, CEA2 #### [facility] [address] [place] [address] #### B2GPM, B2GPA, B2GPG #### [facility] [address] [place] [address] Comprehensive Metabolic Pane kiel 10-28-2021 Albumin [Mass/Vol] 3.7 g/dL 3.5 - 5.0 g/dL [facility] Work Phone: ALP (Bld) [Catalytic activity/Vol] 103 U/L 38 - 126 U/L [facility] Work Phone: [phone] ALT [Catalytic activity/Vol] 26 U/L 0 - 49 U/L [facility] Work Phone: Comment on above: The ALT test is perf ormed by an updated assay method. Please note that the reference intervals have been changed and are now sex specific. Anion gap [Moles/Vol] 5 mmol/L 3 - 13 mmol/L [facility] Work Phone: [phone] AST [Catalytic activity/Vol] 24 U/L 15 - 46 U/L [facility] Work Phone: [phone] Bilirubin [Mass/Vol] 0.4 mg/dL 0.2 - 1 .3 mg/dL [facility] Work Phone: [phone] Calcium [Mass/Vol] 9.1 mg/dL 8.4 - 10. 4 mg/dL [facility] Work Phone: [phone] Chloride [Moles/Vol] 104 mmol/L 98 - 10 7 mmol/L [facility] Work Phone: 222 CO2 [Moles/Vol] 29 mmol/L 22 - 30 mmol/L [facility] Work Phone: [phone] Creatinine [Mass/Vol] 0.71 mg/dL 0.52 - 1.25 mg/dL [facility] Work Phone: [phone] EGFR IF NonAfrican Algerian >90.0 >60 mL/min [facility] Work Phone: Comment on above: KDIGO [...] fraction] 7.1 g/dL 6.3 - 8.2 g/dL [facility] Work Phone: [phone] GFR/1.73 sq M.predicted among blacks MDRD (S/P/Bld) [Vol rate/Area] mL/min/{1.73_m2} >60 mL/min [facility] Work Phone: Glucose [Mass/Vol] 117 mg/dL High 70 - 100 mg/dL [facility] Work Phone: [phone] Interpretation and review of laboratory results Abnormal [facility] Work Phone: [phone] Potassium [Moles/Vol] 3.5 mmol/L 3.5 - 5.1 mmol/L [facility] Work Phone: [phone] Sodium [Moles/Vol] 138 mmol/L 135 - 145 mmol/L [facility] Work Phone: Urea nitrogen (BldV) [Mass/Vol] 16 mg/dL 7 - 17 mg/dL [facility] Work Phone: [phone] Test Performed by [facility], [address] [place], [place] [id number] [place] [address] LAB [facility] Work Phone: Hemogramon 10-28-2021 Erythrocyte distribution width (RBC) [Ratio] 17.1 % High 11.5-14.5 [facility] Comment on above: Performed By: #### C A19O, LUPUS #### The performing lab is in the report. #### NSEO #### [facility] #### HEMDF, LDH3, BMP3, MG3, PT, CEA2 #### [place] [address] [place] [address] #### B2GPM, B2GPA, B2GPG #### [address] Hematocrit (Bld) [Volume fraction] 33.4 % Low 40.0-52.0 [facility] Comment on above: Performed By: #### C A19O, LUPUS #### The performing lab is in the report. #### NSEO #### [facility] #### HEMDF, LDH3, BMP3, MG3, PT, CEA2 #### [address] [place] [address] #### B2GPM, B2GPA, B2GPG #### [address] Hemoglobin (Bld) [Mass/Vol] 11.0 g/dL Low 13.0-18.0 [facility] Comment on above: Performed By: #### C A19O, LUPUS #### The performing lab is in the report. #### NSEO #### [facility] #### HEMDF, LDH3, BMP3, MG3, PT, CEA2 #### [address] [place] [address] #### B2GPM, B2GPA, B2GPG #### [address] MCH (RBC) [Entitic mass] 27.8 pg Normal 26.0-34.0 [facility] Comment on above: Performed By: #### C A19O, LUPUS #### The performing lab is in the report. #### NSEO #### [facility] #### HEMDF, LDH3, BMP3, MG3, PT, CEA2 #### [address] [place], [place] #### B2GPM, B2GPA, B2GPG #### [address] MCHC 32.8 % Normal 32.0-36.0 [facility] Comment on above: Performed By: #### C A19O, LUPUS #### The performing lab is in the report. #### NSEO #### [facility] #### HEMDF, LDH3, BMP3, MG3, PT, CEA2 #### [address] [place], [place] #### B2GPM, B2GPA, B2GPG #### [address] MCV (RBC) [Entitic vol] 84.8 fL Normal 80.0-98.0 [facility] Comment on above: Performed By: #### C A19O, LUPUS #### The performing lab is in the report. #### NSEO #### [facility] #### HEMDF, LDH3, BMP3, MG3, PT, CEA2 #### [address] [place] #### B2GPM, B2GPA, B2GPG #### [address] Platelet mean volume (Bld) [Entitic vol] 8.3 fL Normal 7.4-12.4 [facility] Comment on above: Result Comment: MPV is a calculated measurement using platelet volume ratio. Performed By: #### C A19O, LUPUS #### The performing lab is in the report. #### NSEO #### [facility] #### HEMDF, LDH3, BMP3, MG3, PT, CEA2 #### [address] [place], [place] #### B2GPM, B2GPA, B2GPG #### [address] Platelets (Bld) [#/Vol] 344 10*3/uL Normal 140-440 [facility] Comment on above: Performed By: #### C A19O, LUPUS #### The performing lab is in the report. #### NSEO #### [facility] #### HEMDF, LDH3, BMP3, MG3, PT, CEA2 #### [facility] [address] [place] #### B2GPM, B2GPA, B2GPG #### [address] RBC (Bld) [#/Vol] 3.94 10*6/uL Low 4.40-5.90 [facility] Comment on above: Performed By: #### C A19O, LUPUS #### The performing lab is in the report. #### NSEO #### [facility] #### HEMDF, LDH3, BMP3, MG3, PT, CEA2 #### [facility] [address] [place] #### B2GPM, B2GPA, B2GPG #### [address] WBC (Bld) [#/Vol] 10.0 10*3/uL Normal 3.6-10.7 [facility] Comment on above: Performed By: #### C A19O, LUPUS #### The performing lab is in the report. #### NSEO #### [facility] #### HEMDF, LDH3, BMP3, MG3, PT, CEA2 #### [facility] [address] [place] [address] #### B2GPM, B2GPA, B2GPG #### [address] Neuron Specific Enolaseon Neuron Specific Enolase 20.8 Normal [facility] Comment on above: Result Comment: Neur on Specific Enolase, Serum 20.8 ng/mL H (Ref Interval: <=12.7) NSE and Hgb are elevated in the specimen. The elevated NSE may be a result of hemolysis as NSE is expressed in red blood cells. Interpret results with caution. INTERPRETIVE INFORMATION: Neuron Specific Enolase in Serum This assay is performed using the [employer] NSE Kryptor Immunoassay. Results obtained with different assay methods or kits cannot be used interchangeably. Results cannot be interpreted as absolute evidence of the presence or absence of malignant disease. This test was developed and its performance characteristics determined by [employer]. It has not been cleared or approved by the [place] Food and Drug Administration. This test was performed in a CLIA certified laboratory and is intended for clinical purposes. Performed By: #### C OVAG #### [facility] [address] [place] [address] Neuron specific enolase (NSE )on 10-28-2021 Neuron Specific Enolase 20.8 [facility] Work Phone: Comment on above: Neuron Specific Enol ase, Serum 20.8 ng/mL H (Ref Interval: <=12.7) NSE and Hgb are elevated in the specimen. The elevated NSE may be a result of hemolysis as NSE is expressed in red blood cells. Interpret results with caution. INTERPRETIVE INFORMATION: Neuron Specific Enolase in Serum This assay is performed using the [employer] NSE Kryptor Immunoassay. Results obtained with different assay methods or kits cannot be used interchangeably. Results cannot be interpreted as absolute evidence of the presence or absence of malignant disease. This test was developed and its performance characteristics determined by [employer]. It has not been cleared or approved by the [place] Food and Drug Administration. This test was performed in a CLIA certified laboratory and is intended for clinical purposes. 1 [facility] LAB [facility] Work Phone: Prothrombin Timeon 2 INR 3.1 High 0.9-1.1 [facility] Comment on above: Result [...] HEMDF, LDH3, BMP3, MG3, PT, CEA2 #### [address] [place] [address] #### B2GPM, B2GPA, B2GPG #### [address] [phone] PT Coag (PPP) [Time] 30.8 s High 9.0-12.0 [facility] Comment on above: Result Comment: . Performed By: #### C A19O, LUPUS #### The performing lab is in the report. #### NSEO #### [facility] #### HEMDF, LDH3, BMP3, MG3, PT, CEA2 #### [address] [place] [address] #### B2GPM, B2GPA, B2GPG #### [address] [address] Protime-INRon 10-28-2021 INR Coag (Bld) [Relative time] 3.1 {INR} High [facility] Work Phone: Comment on above: Recommended [...] of laboratory results Abnormal [facility] Work Phone: PT Coag (PPP) [Time] 30.8 s High 9.0 - 12.0 s [facility] Work Phone: Comment on above: . Test Performed by [facility], [address] [place], [place], [place] [id number] [place] [id number] LAB [facility] Work Phone: MRI BRAIN WO CONTRASTon - Patient Name: ANDREW LARSEN Magnetic Resonance Imaging ACCESSION EXAM DATE/TIME PROCEDURE ORDERING PROVIDER [id number] 10/27/2021 13:14 EDT MRI Brain w/o Contrast UNASSIGNED, UNASSIGNED CPT code 68201 Reason For Exam (MRI Brain w/o Contrast) stroke Patient has ANALYTICS SENIOR MANAGER shunt in place, please follow Radiology protocol [...] MD - 10/27/2021 Patient Name: ANDREW SIFUENTES [facility]#: [id number] Magnetic Resonance Imaging ACCESSION EXAM DATE/TIME PROCEDURE ORDERING PROVIDER [id number] 10/27/2021 13:14 EDT MRI Brain w/o Contrast UNASSIGNED, UNASSIGNED CPT code 81512 Reason For Exam (MRI Brain w/o Contrast) stroke Patient has ANALYTICS SENIOR MANAGER shunt in place, please follow Radiology protocol [...] Imaging ACCESSION EXAM DATE/TIME PROCEDURE ORDERING PROVIDER [id number] 10/27/2021 13:14 EDT MRI Brain w/o Contrast UNASSIGNED, UNASSIGNED CPT code 03719 Reason For Exam (MRI Brain w/o Contrast) stroke Patient has ANALYTICS SENIOR MANAGER shunt in place, please follow Radiology protocol for the same and see if MRI brain can be done Report EXAMINATION: MRI BRAIN WITHOUT CONTRAST CLINICAL INDICATION: History of hydrocephalus and seizures, altered mental status TECHNIQUE: Multi-planar multi-sequential MR imaging of the brain was performed without intravenous contrast. COMPARISON: Head CT 10/26/2021. FINDINGS: Left parietal EVD with tip terminating in the right foramen of Seogvia. Right parietal EVD shunt terminating in the [...] Transcribed Date and Time: 10/27/2021 2:39 Normal [facility] Prothrombin Timeon INR 2.1 High 0.9-1.1 [facility] Comment on above: Result [...] Infarction Performed By: #### P T #### [facility] [address] [place] [address] PT Coag (PPP) [Time] 21.9 s High 9.0-12.0 [facility] Work Phone: Comment on above: . Result Comment: . Performed By: #### P T #### [facility] [address] [place] [address] Protime-INRon 10-27-2021 INR Coag (Bld) [Relative time] 2.1 {INR} High [facility] Work Phone: Comment on above: Recommended [...] Interpretation and review of laboratory results Abnormal [facility] Work Phone: Test Performed by [facility], [address], [place], [place] [address] [facility] LAB [facility] Work Phone: CT HEAD WO CONTRASTon 2021 Patient Name: ANDREW SIFUENTES Computed Tomography ACCESSION EXAM DATE/TIME PROCEDURE ORDERING PROVIDER [id number] 10/26/2021 11:[address] Head or Brain w/o JUNIE PINEDA, SARINA Contrast CPT code 61730 Reason For Exam (CT Head or Brain w/o Contrast) hydrocephalus. thank you Report CLINICAL INFORMATION: Hydrocephalus. Shunt. 3 mm axial cuts through the head are obtained without IV contrast. The examination is compared to a previous study dated 06/29/2014. FINDINGS: Old ANALYTICS SENIOR MANAGER shunt tubing is noted bilaterally. The new [...] are clear. IMPRESSION: 1. Old and new ANALYTICS SENIOR MANAGER shunt tubing. 2. No hydrocephalus. 3. Atrophy and evidence of small-vessel ischemic disease. 4. No CT evidence of an acute intracranial process. Report Dictated on --- Final --- Dictating Physician: MD SOLANO JEFFREY Signed Date and Time: 10/26/2021 11:42 am Signed by: MD SOLANO JEFFREY Transcribed Date and Time: 10/26/2021 11:43 [facility] Albert Solano MD - 10/26/2021 Patient Name: ANDREW SIFUENTES Computed Tomography ACCESSION EXAM DATE/TIME PROCEDURE ORDERING PROVIDER [id number] 10/26/2021 11:[address] Head or Brain w/o EDWIN, VACUUM CLEANER REPAIR PERSON, SARINA Contrast CPT code 39027 Reason For Exam (CT Head or Brain w/o Contrast) hydrocephalus. thank you Report CLINICAL INFORMATION: Hydrocephalus. Shunt. 3 mm axial cuts through the head are obtained without IV contrast. The examination is compared to a previous study dated 06/29/2014. FINDINGS: Old ANALYTICS SENIOR MANAGER shunt tubing is noted bilaterally. The new [...] are clear. IMPRESSION: 1. Old and new ANALYTICS SENIOR MANAGER shunt tubing. 2. No hydrocephalus. 3. Atrophy [...] Tomography ACCESSION EXAM DATE/TIME PROCEDURE ORDERING PROVIDER [id number] 10/26/2021 11:[address] Head or Brain w/o JUNIE PINEDA, SARINA Contrast CPT code 63175 Reason For Exam (CT Head or Brain w/o Contrast) hydrocephalus. thank you Report CLINICAL INFORMATION: Hydrocephalus. Shunt. 3 mm axial cuts through the head are obtained without IV contrast. The examination is compared to a previous study dated 06/29/2014. FINDINGS: Old ANALYTICS SENIOR MANAGER shunt tubing is noted bilaterally. The new [...] are clear. IMPRESSION: 1. Old and new ANALYTICS SENIOR MANAGER shunt tubing. 2. No hydrocephalus. 3. Atrophy and evidence of small-vessel ischemic disease. 4. No CT evidence of an acute intracranial process. Report Dictated on Final Dictating Physician: MD SOLANO JEFFREY Signed Date and Time: 10/26/2021 11:42 am Signed by: MD SOLANO JEFFREY Transcribed Date and Time: 10/26/2021 11:43 Normal [facility] EEG awake and asleepon 10-26 Bony Tompkins MD 10/26/2021 4:06 PM [facility] [address] [place] [id number] ROUTINE EEG REPORT Patient Name: Andrew Sifuentes : 1950 Date of Study: 10/26/2021 Duration Recorded: 23 minutes EEG#: [id number] DIRECTOR CLINICAL DATA: CASTRO PROVIDER REQUESTING STUDY: Dr. Barreto REASON FOR EXAM: seizures HISTORY: Andrew Sifuentes is a 71 y.o. 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 At present patient is awake, follows commands, was able to tell his name, and that he was in hospital but not oriented to time. Per documentation patient had NCSE in May 2021, was on Vimpat, but it was discontinued as there was no evidence of recurrent seizures in July 2021 by Neurology at [facility], per daughter patient was on Dilantin for 31 yrs. Per daughter patient had seizures in the past and also felt he had staring episodes this morning. Per daughter patient has been essentially bed bound in [place] since May 2021 but prior to that [...] study with video was carried out at [facility]. Scalp electrodes were positioned in person by an radiological technologist, following patient education, according to the 10-20 International system of electrode placement and maintained for integrity and quality of the recording. EEG data with video was recorded continuously and digitally stored. The radiological technologist reviewed all automated detections and manual [...] No normal vari (more content not included)... [facility] Work Phone: [facility] Work Phone: No Panel Informationon 10-26 Radiology Study observation (narrative) [facility] Work Phone: Prothrombin Timeon 2 INR 1.9 High 0.9-1.1 [facility] [employer] [facility] [employer] [facility] Comment on above: Result Comment: [...] Infarction Performed By: #### C OVAG #### [facility] [employer] [facility] [address] [place] [address] PT Coag (PPP) [Time] 19.7 s High 9.0-12.0 [facility] [employer] [facility] Comment on above: Result Comment: . Performed By: #### C OVAG #### [facility] [employer] [facility] [address] [place] [address] Protime-INRon 10-26-2021 INR Coag (Bld) [Relative time] 1.9 {INR} High [facility] Work Phone: Comment on above: Recommended [...] Interpretation and review of laboratory results Abnormal [facility] Work Phone: PT Coag (PPP) [Time] 19.7 s High 9.0 - 12.0 s [facility] Work Phone: Comment on above: . Test Performed by [facility], [address] [place], [place] [address] [facility] LAB [facility] Work Phone: CA 19-9on 10-25-2021 CA 19-9 17 U/mL Normal <=35 [facility] Work Phone: Comment on above: INTERPRETIVE [...] or absence of malignant disease. Performed By: [employer] [address] [place] [address] [employer] Machine Tender: Quiana Castro MD Result Comment: INTE RPRETIVE [...] or absence of malignant disease. Performed By: [employer] [address] [place] [address] [employer] Tender: Quiana Castro MD Performed By: #### C OVAG #### [facility] [address] [place] [address] Cancer Antigen 19-9on 2021 [facility] Work Phone: Prothrombin Timeon 2 INR 1.5 High 0.9-1.1 [facility] Comment on above: Result [...] Infarction Performed By: #### P T #### [facility] [address] [place] [address] PT Coag (PPP) [Time] 15.6 s High 9.0-12.0 [facility] Comment on above: Result Comment: . Performed By: #### P T #### [facility] [address] [place] [address] Protime-INRon 10-25-2021 INR Coag (Bld) [Relative time] 1.5 {INR} High [facility] Work Phone: Comment on above: Recommended Anticoag [...] Interpretation and review of laboratory results Abnormal [employer] Work Phone: PT Coag (PPP) [Time] 15.6 s High 9.0 - 12.0 s [employer] Work Phone: Comment on above: . Test Performed by [facility] [employer] [facility], [address], [place], [place] [address] [facility] [employer] Work Phone: B-2 Glycoprotein (IGA)on Beta-2 Glyco 1 IgA <2.0 U/mL [employer] Work Phone: Comment on above: Interpretive Informa tion: Results equal to or greater than 20 U/mL = POSITIVE Results less than 20 U/mL = NEGATIVE B2 Glycoprotein I (IgM) Abon 10-24-2021 Beta-2 Glyco 1 IgM <1.5 U/mL [employer] Work Phone: Comment on above: Interpretive Informa tion: Results equal to or greater than 20 U/mL = POSITIVE Results less than 20 U/mL = NEGATIVE B2 Glycoprotein I Igg Abon 0 10-24-2021 Beta-2 Glyco 1 IgG <1.4 U/mL [facility] Work Phone: Comment on above: Interpretive Informa tion: Results equal to or greater than 20 U/mL = POSITIVE Results less than 20 U/mL = NEGATIVE Basic Metabolic Panelon 06-2 Anion gap [Moles/Vol] 8 mmol/L Normal 3-13 [facility] Comment on above: Performed By: #### C A19O, LUPUS #### The performing lab is in the report. #### NSEO #### [facility] #### HEMDF, LDH3, BMP3, MG3, PT, CEA2 #### [facility] [address] [place] [address] #### B2GPM, B2GPA, B2GPG #### [address] Calcium [Mass/Vol] 8.8 mg/dL Normal 8.4-10.4 [facility] Comment on above: Performed By: #### C A19O, LUPUS #### The performing lab is in the report. #### NSEO #### [facility] #### HEMDF, LDH3, BMP3, MG3, PT, CEA2 #### [facility] [address] [place] [address] #### B2GPM, B2GPA, B2GPG #### [address] CO2 [Moles/Vol] 25 mmol/L Normal 22-30 [facility] Comment on above: Performed By: #### C A19O, LUPUS #### The performing lab is in the report. #### NSEO #### [facility] #### HEMDF, LDH3, BMP3, MG3, PT, CEA2 #### [facility] [address] [place] [address] #### B2GPM, B2GPA, B2GPG #### [address] Creatinine [Mass/Vol] 0.74 mg/dL Normal 0.52-1.25 [facility] Comment on above: Performed By: #### C A19O, LUPUS #### The performing lab is in the report. #### NSEO #### [facility] #### HEMDF, LDH3, BMP3, MG3, PT, CEA2 #### [facility] [address] [place] [address] #### B2GPM, B2GPA, B2GPG #### [address] eGFR OTHER > 90.0 Normal >60 [facility] Comment on above: Result Comment: KDIG [...] renal tubular creatinine secretion. Performed By: #### Eileen A19O LUPUS #### The performing lab is in the report. #### NSEO #### [facility] #### HEMDF, LDH3, BMP3, MG3, PT, CEA2 #### [facility] [address] [place] [address] #### B2GPM, B2GPA, B2GPG #### [address] GFR/1.73 sq M.predicted among blacks MDRD (S/P/Bld) [Vol rate/Area] mL/min/{1.73_m2} Normal >60 [facility] Comment on above: Performed By: #### C A19O, LUPUS #### The performing lab is in the report. #### NSEO #### [facility] #### HEMDF, LDH3, BMP3, MG3, PT, CEA2 #### [facility] [address] [place] [address] #### B2GPM, B2GPA, B2GPG #### [address] Glucose [Mass/Vol] 116 mg/dL High 70-100 [facility] Comment on above: Performed By: #### C A19O, LUPUS #### The performing lab is in the report. #### NSEO #### [facility] #### HEMDF, LDH3, BMP3, MG3, PT, CEA2 #### [place] [address] [place] [address] #### B2GPM, B2GPA, B2GPG #### [address] Urea nitrogen [Mass/Vol] 19 mg/dL High 7-17 [facility] Comment on above: Performed By: #### C A19O, LUPUS #### The performing lab is in the report. #### NSEO #### [facility] #### HEMDF, LDH3, BMP3, MG3, PT, CEA2 #### [facility] [address] [place] [address] #### B2GPM, B2GPA, B2GPG #### [address] Chloride [Moles/Vol] 107 mmol/L Normal 98-107 [facility] Comment on above: Performed By: #### C A19O, LUPUS #### The performing lab is in the report. #### NSEO #### [facility] #### HEMDF, LDH3, BMP3, MG3, PT, CEA2 #### [place] [address] [place] [address] #### B2GPM, B2GPA, B2GPG #### [address] Potassium [Moles/Vol] 3.9 mmol/L Normal 3.5-5.1 [facility] Comment on above: Performed By: #### C A19O, LUPUS #### The performing lab is in the report. #### NSEO #### [facility] #### HEMDF, LDH3, BMP3, MG3, PT, CEA2 #### [facility] [address] [place] [address] #### B2GPM, B2GPA, B2GPG #### [address] Sodium [Moles/Vol] 140 mmol/L Normal 135-145 [facility] Comment on above: Performed By: #### C A19O, LUPUS #### The performing lab is in the report. #### NSEO #### [facility] #### HEMDF, LDH3, BMP3, MG3, PT, CEA2 #### [facility] [address] [place] [address] #### B2GPM, B2GPA, B2GPG #### [address] Anion gap [Moles/Vol] 8 mmol/L 3 - 13 mmol/L [facility] Calcium [Mass/Vol] 8.8 mg/dL 8.4 - 10. 4 mg/dL [facility] Chloride [Moles/Vol] 107 mmol/L 98 - 10 7 mmol/L [facility] CO2 [Moles/Vol] 25 mmol/L 22 - 30 mmol/L [facility] Creatinine [Mass/Vol] 0.74 mg/dL 0.52 - 1.25 mg/dL [facility] EGFR IF NonAfrican Algerian >90.0 >60 mL/min [facility] Comment on above: KDIGO guidelines pro [...] - 17 mg/dL [facility] Test Performed by [facility], [address] [place], [place] [address] [place] [address] LAB [facility] Beta-2 Glycoprotein I IgAon 10-24-2021 Beta-2 Glycoprotein I IgA < 2.0 Normal [facility] Comment on above: Result Comment: Inte rpretive Information: Results equal to or greater than 20 U/mL = POSITIVE Results less than 20 U/mL = NEGATIVE Performed By: #### C OVAG #### [facility] [address] [place] [address] Beta-2 Glycoprotein I IgGon 10-24-2021 Beta-2 Glycoprotein I IgG < 1.4 Normal [facility] Comment on above: Result Comment: Inte rpretive Information: Results equal to or greater than 20 U/mL = POSITIVE Results less than 20 U/mL = NEGATIVE Performed By: #### C OVAG #### [facility] [address] [place] [address] Beta-2 Glycoprotein I IgMon 10-24-2021 Beta-2 Glycoprotein I IgM < 1.5 Normal [facility] Comment on above: Result Comment: Inte rpretive Information: Results equal to or greater than 20 U/mL = POSITIVE Results less than 20 U/mL = NEGATIVE Performed By: #### C OVAG #### [facility] [address] [place] [address] No Panel Informationon 10-24 [facility] Test Performed by [facility], [address] [place] [address], [place] [address] [facility] Work Phone: PROTEIN C FUNCTIONALon 10-24 Interpretation and review of laboratory results Abnormal [facility] Protein C-Functional 185 % High 83 - 168 % [facility] Comment on above: INTERPRETIVE INFORMA TION: [...] reference intervals for this test in the [facility] Laboratory Test Directory ([employer]). Performed by [employer], [address] [facility] [id number] www.[email or web address], Quiana Castro MD - Lab. Director Protein C, Functionalon 10-06 Protein C, Functional 185 % High 83-168 [facility] Comment on above: Result Comment: INTE [...] reference intervals for this test in the [facility] Laboratory Test Directory (Hobby). Performed by [employer], [address] [facility] [id number] www.[email or web address], Quiana Castro MD - Lab. Director Performed By: #### P T #### [facility] [address] [place] [address] Protein S, Functionalon 10-06 Protein S, Functional 138 % Normal 66-143 [facility] Comment on above: INTERPRETIVE INFORMA TION: Protein [...] reference intervals for this test in the [facility] Test Directory (Hobby). Performed by [employer], [address] [place] [address],[place] [id number] www.[email or web address], Quiana Castro MD - Lab. Director Result [...] reference intervals for this test in the [facility] Laboratory Test Directory (Hobby). Performed by [employer], [address] [facility],[place] [id number] www.[email or web address], Quiana Castro MD - Lab. Director Performed By: #### P T #### [facility] [address] [place] [address] Prothrombin Timeon 2 INR 1.2 High 0.9-1.1 [facility] Comment on above: Result [...] HEMDF, LDH3, BMP3, MG3, PT, CEA2 #### [facility] [address] [place] [address] #### B2GPM, B2GPA, B2GPG #### [facility] [address] [place] [address] PT Coag (PPP) [Time] 12.6 s High 9.0-12.0 [facility] Comment on above: Result Comment: . Performed By: #### C A19O, LUPUS #### The performing lab is in the report. #### NSEO #### [facility] #### HEMDF, LDH3, BMP3, MG3, PT, CEA2 #### [facility] [address] [place] [address] #### B2GPM, B2GPA, B2GPG #### [facility] [address] [place] [address] Protime-INRon 10-24-2021 INR Coag (Bld) [Relative time] 1.2 {INR} High [facility] Comment on above: Recommended Anticoag ulant [...] Interpretation and review of laboratory results Abnormal [facility] PT Coag (PPP) [Time] 12.6 s High 9.0 - 12.0 s [facility] Comment on above: . Test Performed by [facility], [address] [place], [place] [address] [facility] LAB [facility] Basic Metabolic Panelon 10-05 Anion gap [Moles/Vol] 10 mmol/L Normal 3-13 [facility] Comment on above: Performed By: #### C A19O, LUPUS #### The performing lab is in the report. #### NSEO #### [facility] #### HEMDF, LDH3, BMP3, MG3, PT, CEA2 #### [facility] [address] [place] [address] #### B2GPM, B2GPA, B2GPG #### [address] Calcium [Mass/Vol] 9.6 mg/dL Normal 8.4-10.4 [facility] Comment on above: Performed By: #### C A19O, LUPUS #### The performing lab is in the report. #### NSEO #### [facility] #### HEMDF, LDH3, BMP3, MG3, PT, CEA2 #### [place] [address] [place] [address] #### B2GPM, B2GPA, B2GPG #### [address] CO2 [Moles/Vol] 27 mmol/L Normal 22-30 [facility] Comment on above: Performed By: #### C A19O, LUPUS #### The performing lab is in the report. #### NSEO #### [facility] #### HEMDF, LDH3, BMP3, MG3, PT, CEA2 #### [address] [place] [address] #### B2GPM, B2GPA, B2GPG #### [address] Glucose [Mass/Vol] 109 mg/dL High 70-100 [facility] Comment on above: Performed By: #### C A19O, LUPUS #### The performing lab is in the report. #### NSEO #### [facility] #### HEMDF, LDH3, BMP3, MG3, PT, CEA2 #### [place] [address] [place] [address] #### B2GPM, B2GPA, B2GPG #### [address] Urea nitrogen [Mass/Vol] 18 mg/dL High 7-17 [facility] Comment on above: Performed By: #### C A19O, LUPUS #### The performing lab is in the report. #### NSEO #### [facility] #### HEMDF, LDH3, BMP3, MG3, PT, CEA2 #### [place] [address] [place] [address] #### B2GPM, B2GPA, B2GPG #### [address] Creatinine [Mass/Vol] 0.82 mg/dL Normal 0.52-1.25 [facility] Comment on above: Performed By: #### C A19O, LUPUS #### The performing lab is in the report. #### NSEO #### [facility] #### HEMDF, LDH3, BMP3, MG3, PT, CEA2 #### [place] [address] [place] [address] #### B2GPM, B2GPA, B2GPG #### [address] GFR/1.73 sq M.predicted among blacks MDRD (S/P/Bld) [Vol rate/Area] mL/min/{1.73_m2} Normal >60 [facility] Comment on above: Performed By: #### C A19O, LUPUS #### The performing lab is in the report. #### NSEO #### [facility] #### HEMDF, LDH3, BMP3, MG3, PT, CEA2 #### [address] [place] [address] #### B2GPM, B2GPA, B2GPG #### [address] [address] GFR/1.73 sq M.predicted among non-blacks MDRD (S/P/Bld) [Vol rate/Area] 89.9 mL/min/{1.73_m2} Normal >60 [facility] Comment on above: Result Comment: KDIG [...] tubular creatinine secretion. Performed By: #### C A19O LUPUS #### The performing lab is in the report. #### NSEO #### [facility] #### HEMDF, LDH3, BMP3, MG3, PT, CEA2 #### [address] [place] [address] #### B2GPM, B2GPA, B2GPG #### [address] [address] Chloride [Moles/Vol] 104 mmol/L Normal 98-107 [facility] Comment on above: Performed By: #### C A19O LUPUS #### The performing lab is in the report. #### NSEO #### [facility] #### HEMDF, LDH3, BMP3, MG3, PT, CEA2 #### [address] [place] [address] #### B2GPM, B2GPA, B2GPG #### [address] [address] Potassium [Moles/Vol] 3.9 mmol/L Normal 3.5-5.1 [facility] Comment on above: Performed By: #### C A19O, LUPUS #### The performing lab is in the report. #### NSEO #### [facility] #### HEMDF, LDH3, BMP3, MG3, PT, CEA2 #### [address] [place] [address] #### B2GPM, B2GPA, B2GPG #### [facility] [address] [place], [place] Sodium [Moles/Vol] 142 mmol/L Normal 135-145 [facility] Comment on above: Performed By: #### C A19O, LUPUS #### The performing lab is in the report. #### NSEO #### [facility] #### HEMDF, LDH3, BMP3, MG3, PT, CEA2 #### [facility] [address] [place] [address] #### B2GPM, B2GPA, B2GPG #### [address] Anion gap [Moles/Vol] 10 mmol/L 3 - 13 mmol/L [facility] Work Phone: Calcium [Mass/Vol] 9.6 mg/dL 8.4 - 10. 4 mg/dL [facility] Work Phone: Chloride [Moles/Vol] 104 mmol/L 98 - 10 7 mmol/L [facility] Work Phone: CO2 [Moles/Vol] 27 mmol/L 22 - 30 mmol/L [facility] Work Phone: Creatinine [Mass/Vol] 0.82 mg/dL 0.52 - 1.25 mg/dL [facility] Work Phone: EGFR IF NonAfrican Algerian 89.9 mL/min >60 [facility] Work Phone: Comment on above: KDIGO [...] rate/Area] mL/min/{1.73_m2} >60 mL/min [facility] Work Phone: 222 Glucose [Mass/Vol] 109 mg/dL High 70 - 100 mg/dL [facility] [facility] Work Phone: 222 Interpretation and review of laboratory results Abnormal [facility] Work Phone: 222 Potassium [Moles/Vol] 3.9 mmol/L 3.5 - 5.1 mmol/L [facility] Work Phone: 222 Sodium [Moles/Vol] 142 mmol/L 135 - 145 mmol/L [facility] Work Phone: 222 Urea nitrogen (BldV) [Mass/Vol] 18 mg/dL High 7 - 17 mg/dL [facility] Work Phone: 222 CBC with Auto Differentialon 10-23-2021 Absolute Baso # 0.1 10*3/uL 0.0 - 0.2 10*3/uL [facility] Work Phone: 222 Absolute Neut # 6.6 10*3/uL 1.8 - 7.0 10*3/uL [facility] Work Phone: 222 Basophils/100 WBC (Bld) 1.1 % 0.0 - 2.0 % [facility] Work Phone: 222 Eosinophils (Bld) [#/Vol] 0.4 10*3/uL 0.0 - 0.5 10*3/uL [facility] Work Phone: 222 Eosinophils/100 WBC (Bld) 3.9 % 1.0 - 6.0 % [facility] Work Phone: 222 Granulocytes/100 WBC (Bld) 64.0 % 40.0 - 80.0 % [facility] Work Phone: 222 Hematocrit (Bld) [Volume fraction] 35.1 % Low 40.0 - 52.0 % [employer] Work Phone: 1 222 Hemoglobin (Bld) [Mass/Vol] 11.6 g/dL Low 13.0 - 18.0 g/dL [employer] Work Phone: 1) 222 Interpretation and review of laboratory results Abnormal [facility] Phone: 1) Lymphocytes (Bld) [#/Vol] 2.6 10*3/uL 1.0 - 4.3 10*3/uL [employer] Work Phone: 1) 222 Lymphocytes/100 WBC (Bld) 25.0 % 20.0 - 40.0 % [facility] Phone: 1) MCH (RBC) [Entitic mass] 28.4 pg 26.0 - 34.0 pg [facility] Phone: MCHC (RBC) [Mass/Vol] 33.1 % 32.0 - 36.0 % [facility] Phone: ) MCV (RBC) [Entitic vol] 85.9 fL 80.0 - 98.0 fL [facility] Phone: 1) Monocytes (Bld) [#/Vol] 0.6 10*3/uL 0.0 - 0.8 10*3/uL [facility] Phone: 1) 222 Monocytes/100 WBC (Bld) 6.0 % 2.0 - 10.0 % [facility] Phone: 1 Platelet distribution width (Bld) [Ratio] 17.4 % High 11.5 - 14.5 % [facility] Phone: ) Platelet mean volume (Bld) [Entitic vol] 8.1 fL 7.4 - 12.4 fL [facility] Phone: 1) Comment on above: MPV is a calculated measurement using platelet volume ratio. Platelets (Bld) [#/Vol] 450 10*3/uL High 140 - 440 10*3/uL [employer] Work Phone: 1) 222 RBC (Bld) [#/Vol] 4.08 10*6/uL Low 4.40 - 5.9 0 10*6/uL [facility] Work Phone: WBC (Bld) [#/Vol] 10.3 10*3/uL 3.6 - 10.7 10*3/uL [facility] Work Phone: Test Performed by [facility], [address] [place], [place] [id number] [place] [address] LAB [facility] Work Phone: CEAon 10-23-2021 CEA 0.8 ng/mL 0.0 - 3.0 ng/mL [facility] Work Phone: Test Performed by [facility], [address], [place], [place] [id number] [place] [address] LAB [facility] Work Phone: Carcinoembryonic Agon 2021 Carcinoembryonic Ag. 0.8 ng/mL Normal 0.0-3.0 [facility] Comment on above: Performed By: #### C A19O, LUPUS #### The performing lab is in the report. #### NSEO #### [facility] #### HEMDF, LDH3, BMP3, MG3, PT, CEA2 #### [facility] [address] [place] [address] #### B2GPM, B2GPA, B2GPG #### [address] [phone] Hemogram w/ Autodiffon 10-23 Abs Baso Cnt 0.1 10*3/uL Normal 0.0-0.2 [facility] Comment on above: Performed By: #### C A19O, LUPUS #### The performing lab is in the report. #### NSEO #### [facility] #### HEMDF, LDH3, BMP3, MG3, PT, CEA2 #### [facility] [address] [place] [address] #### B2GPM, B2GPA, B2GPG #### [address] [phone] Abs Neutrophile Cnt 6.6 10*3/uL Normal 1.8-7.0 [facility] Comment on above: Performed By: #### C A19O, LUPUS #### The performing lab is in the report. #### NSEO #### [facility] #### HEMDF, LDH3, BMP3, MG3, PT, CEA2 #### [facility] [address] [place] [address] #### B2GPM, B2GPA, B2GPG #### [address] [address] Basophils/100 WBC (Bld) 1.1 % Normal 0.0-2.0 [facility] Comment on above: Performed By: #### C A19O, LUPUS #### The performing lab is in the report. #### NSEO #### [facility] #### HEMDF, LDH3, BMP3, MG3, PT, CEA2 #### [facility] [address] [place] [address] #### B2GPM, B2GPA, B2GPG #### [address] [address] Eosinophils (Bld) [#/Vol] 0.4 10*3/uL Normal 0.0-0.5 [facility] Comment on above: Performed By: #### C A19O LUPUS #### The performing lab is in the report. #### NSEO #### [facility] #### HEMDF, LDH3, BMP3, MG3, PT, CEA2 #### [address] [place] [address] #### B2GPM, B2GPA, B2GPG #### [address] [address] Eosinophils/100 WBC (Bld) 3.9 % Normal 1.0-6.0 [facility] Comment on above: Performed By: #### C A19O, LUPUS #### The performing lab is in the report. #### NSEO #### [facility] #### HEMDF, LDH3, BMP3, MG3, PT, CEA2 #### [facility] [address] [place] [address] #### B2GPM, B2GPA, B2GPG #### [address] Erythrocyte distribution width (RBC) [Ratio] 17.4 % High 11.5-14.5 [facility] Comment on above: Performed By: #### C A19O, LUPUS #### The performing lab is in the report. #### NSEO #### [facility] #### HEMDF, LDH3, BMP3, MG3, PT, CEA2 #### [place] [address] [place] [address] #### B2GPM, B2GPA, B2GPG #### [address] Granulocytes/100 WBC (Bld) 64.0 % Normal 40.0-80.0 [facility] Comment on above: Performed By: #### C A19O, LUPUS #### The performing lab is in the report. #### NSEO #### [facility] #### HEMDF, LDH3, BMP3, MG3, PT, CEA2 #### [place] [address] [place] [address] #### B2GPM, B2GPA, B2GPG #### [address] Hematocrit (Bld) [Volume fraction] 35.1 % Low 40.0-52.0 [facility] Comment on above: Performed By: #### C A19O, LUPUS #### The performing lab is in the report. #### NSEO #### [facility] #### HEMDF, LDH3, BMP3, MG3, PT, CEA2 #### [facility] [address] [place] [address] #### B2GPM, B2GPA, B2GPG #### [address] Hemoglobin (Bld) [Mass/Vol] 11.6 g/dL Low 13.0-18.0 [facility] Comment on above: Performed By: #### C A19O, LUPUS #### The performing lab is in the report. #### NSEO #### [facility] #### HEMDF, LDH3, BMP3, MG3, PT, CEA2 #### [facility] [address] [place] [address] #### B2GPM, B2GPA, B2GPG #### [address] Lymphocytes (Bld) [#/Vol] 2.6 10*3/uL Normal 1.0-4.3 [facility] Comment on above: Performed By: #### C A19O, LUPUS #### The performing lab is in the report. #### NSEO #### [facility] #### HEMDF, LDH3, BMP3, MG3, PT, CEA2 #### [facility] [address] [place] [address] #### B2GPM, B2GPA, B2GPG #### [address] Lymphocytes/100 WBC (Bld) 25.0 % Normal 20.0-40.0 [facility] Comment on above: Performed By: #### C A19O, LUPUS #### The performing lab is in the report. #### NSEO #### [facility] #### HEMDF, LDH3, BMP3, MG3, PT, CEA2 #### [facility] [address] [place] [address] #### B2GPM, B2GPA, B2GPG #### [address] MCH (RBC) [Entitic mass] 28.4 pg Normal 26.0-34.0 [facility] Comment on above: Performed By: #### C A19O, LUPUS #### The performing lab is in the report. #### NSEO #### [facility] #### HEMDF, LDH3, BMP3, MG3, PT, CEA2 #### [facility] [address] [facility] [place] [place] #### B2GPM, B2GPA, B2GPG #### [address] MCHC 33.1 % Normal 32.0-36.0 [facility] Comment on above: Performed By: #### C A19O, LUPUS #### The performing lab is in the report. #### NSEO #### [facility] #### HEMDF, LDH3, BMP3, MG3, PT, CEA2 #### [place] [address] [place], [place] #### B2GPM, B2GPA, B2GPG #### [address] MCV (RBC) [Entitic vol] 85.9 fL Normal 80.0-98.0 [facility] Comment on above: Performed By: #### C A19O, LUPUS #### The performing lab is in the report. #### NSEO #### [facility] #### HEMDF, LDH3, BMP3, MG3, PT, CEA2 #### [place] [address] [place], [place] #### B2GPM, B2GPA, B2GPG #### [address] Monocytes (Bld) [#/Vol] 0.6 10*3/uL Normal 0.0-0.8 [facility] Comment on above: Performed By: #### C A19O, LUPUS #### The performing lab is in the report. #### NSEO #### [facility] #### HEMDF, LDH3, BMP3, MG3, PT, CEA2 #### [facility] [address] [place], [place] #### B2GPM, B2GPA, B2GPG #### [address] Monocytes/100 WBC (Bld) 6.0 % Normal 2.0-10.0 [facility] Comment on above: Performed By: #### C A19O, LUPUS #### The performing lab is in the report. #### NSEO #### [facility] #### HEMDF, LDH3, BMP3, MG3, PT, CEA2 #### [facility] [address] [place] [address] #### B2GPM, B2GPA, B2GPG #### [facility] [address] [place], [place] Platelet mean volume (Bld) [Entitic vol] 8.1 fL Normal 7.4-12.4 [facility] Comment on above: Result Comment: MPV is a calculated measurement using platelet volume ratio. Performed By: #### C A19O, LUPUS #### The performing lab is in the report. #### NSEO #### [facility] #### HEMDF, LDH3, BMP3, MG3, PT, CEA2 #### [facility] [address] [place], [place] #### B2GPM, B2GPA, B2GPG #### [facility] [address] [place], [place] Platelets (Bld) [#/Vol] 450 10*3/uL High 140-440 [facility] Comment on above: Performed By: #### C A19O, LUPUS #### The performing lab is in the report. #### NSEO #### [facility] #### HEMDF, LDH3, BMP3, MG3, PT, CEA2 #### [facility] [address] [place], [place] #### B2GPM, B2GPA, B2GPG #### [facility] [address] [place], [place] RBC (Bld) [#/Vol] 4.08 10*6/uL Low 4.40-5.90 [facility] Comment on above: Performed By: #### C A19O, LUPUS #### The performing lab is in the report. #### NSEO #### [facility] #### HEMDF, LDH3, BMP3, MG3, PT, CEA2 #### [facility] [address] [place] [address] #### B2GPM, B2GPA, B2GPG #### [address] WBC (Bld) [#/Vol] 10.3 10*3/uL Normal 3.6-10.7 [facility] Comment on above: Performed By: #### C A19O, LUPUS #### The performing lab is in the report. #### NSEO #### [facility] #### HEMDF, LDH3, BMP3, MG3, PT, CEA2 #### [place] [address] [place] [address] #### B2GPM, B2GPA, B2GPG #### [address] LDHon 10-23-2021 LDH 136 U/L Normal 120-246 [facility] Comment on above: Performed By: #### C A19O, LUPUS #### The performing lab is in the report. #### NSEO #### [facility] #### HEMDF, LDH3, BMP3, MG3, PT, CEA2 #### [address] [place] [address] #### B2GPM, B2GPA, B2GPG #### [address] [phone] Lactate Dehydrogenaseon 10-05 LD 136 U/L 120 - 246 U/L [facility] Work Phone: MRI ABDOMEN WO CONTRASTon Patient Name: ANDREW SIFUENTES Magnetic Resonance Imaging ACCESSION EXAM DATE/TIME PROCEDURE ORDERING PROVIDER [id number] 10/23/2021 11:08 EDT MRI Abdomen w/o Contrast WING SRIVASTAVA CPT code 46474 Reason For Exam (MRI Abdomen w/o Contrast) [...] VLADIMIR Transcribed Date and Time: 10/23/2021 4:36 [facility] Result, Unknown Prov ider - 10/23/2021 Patient Name: ANDREW SIFUENTES Magnetic Resonance Imaging ACCESSION EXAM DATE/TIME PROCEDURE ORDERING PROVIDER [id number] 10/23/2021 11:08 EDT MRI Abdomen w/o Contrast WING SRIVASTAVA CPT code 07721 Reason For Exam (MRI Abdomen w/o Contrast) [...] VLADIMIR Transcribed Date and Time: 10/23/2021 4:36 [facility] Work Phone: MRI ABDOMEN WO CONTRASTOrder ed By: Unknown Result on 10-23-2021 [facility] MRI Abdomen w/o Contraston 0 10-23-2021 MRI Abdomen w/o Contrast Patient Name: ANDREW SIFUENTES [facility] [id number] Magnetic Resonance Imaging ACCESSION EXAM DATE/TIME PROCEDURE ORDERING PROVIDER [id number] 10/23/2021 11:08 EDT MRI Abdomen w/o Contrast WING SRIVASTAVA CPT code 28231 Reason For Exam (MRI Abdomen w/o Contrast) [...] Transcribed Date and Time: 10/23/2021 4:36 Normal [facility] Magnesiumon 10-23-2021 Magnesium [Mass/Vol] 2.1 mg/dL Normal 1.6-2.3 [facility] Comment on above: Performed By: #### C A19O, LUPUS #### The performing lab is in the report. #### NSEO #### [facility] #### HEMDF, LDH3, BMP3, MG3, PT, CEA2 #### [facility] [address] [place] [address] #### B2GPM, B2GPA, B2GPG #### [address] [address] Magnesium [Mass/Vol] 2.1 mg/dL 1.6 - 2 .3 mg/dL [facility] Work Phone: No Panel Informationon 10-23 Test Performed by [facility], [address] LAB [facility] Work Phone: Prothrombin Timeon 2 INR 1.1 Normal 0.9-1.1 [facility] Comment on above: Result [...] HEMDF, LDH3, BMP3, MG3, PT, CEA2 #### [facility] [address] [place] [address] #### B2GPM, B2GPA, B2GPG #### [address] [phone] PT Coag (PPP) [Time] 12.2 s High 9.0-12.0 [facility] Comment on above: Result Comment: . Performed By: #### C A19O, LUPUS #### The performing lab is in the report. #### NSEO #### [facility] #### HEMDF, LDH3, BMP3, MG3, PT, CEA2 #### [facility] [address] [place] [address] #### B2GPM, B2GPA, B2GPG #### [facility] [address] [place] [address] Protime-INRon 10-23-2021 INR Coag (Bld) [Relative time] 1.1 {INR} [facility] Work Phone: Comment on above: Recommended [...] Interpretation and review of laboratory results Abnormal [facility] Work Phone: PT Coag (PPP) [Time] 12.2 s High 9.0 - 12.0 s [facility] Work Phone: Comment on above: . Test Performed by [facility], [address] [place], [place] [address] [facility] LAB [facility] Work Phone: Basic Metabolic Panelon 10-05 Calcium [Mass/Vol] 8.9 mg/dL Normal 8.4-10.4 [facility] Comment on above: Performed By: #### P T #### [facility] [address] [place] [address] Glucose [Mass/Vol] 110 mg/dL High 70-100 [facility] Comment on above: Performed By: #### P T #### [facility] [address] [place] [address] Urea nitrogen [Mass/Vol] 14 mg/dL Normal 7-17 [facility] Comment on above: Performed By: #### P T #### [facility] [address] [place] [address] Anion gap [Moles/Vol] 7 mmol/L Normal 3-13 [facility] Comment on above: Performed By: #### P T #### [facility] [address] [place] [address] CO2 [Moles/Vol] 26 mmol/L Normal 22-30 [facility] Comment on above: Performed By: #### P T #### [facility] [address] [place] [address] Creatinine [Mass/Vol] 0.71 mg/dL Normal 0.52-1.25 [facility] Comment on above: Performed By: #### P T #### [facility] [address] [place] [address] eGFR OTHER > 90.0 Normal >60 [facility] Comment on above: Result Comment: KDIG [...] secretion. Performed By: #### P T #### [facility] [address] [place] [address] GFR/1.73 sq M.predicted among blacks MDRD (S/P/Bld) [Vol rate/Area] mL/min/{1.73_m2} Normal >60 [facility] Comment on above: Performed By: #### P T #### [facility] [address] [place] [address] Potassium [Moles/Vol] 3.8 mmol/L Normal 3.5-5.1 [facility] Comment on above: Performed By: #### P T #### [facility] [address] [place] [address] Chloride [Moles/Vol] 106 mmol/L Normal 98-107 [facility] Comment on above: Performed By: #### P T #### [facility] [address] [place] [address] Sodium [Moles/Vol] 139 mmol/L Normal 135-145 [facility] Comment on above: Performed By: #### P T #### [facility] [address] [place] [address] Anion gap [Moles/Vol] 7 mmol/L 3 - 13 mmol/L [facility] Calcium [Mass/Vol] 8.9 mg/dL 8.4 - 10. 4 mg/dL [facility] Chloride [Moles/Vol] 106 mmol/L 98 - 10 7 mmol/L [facility] CO2 [Moles/Vol] 26 mmol/L 22 - 30 mmol/L [facility] Creatinine [Mass/Vol] 0.71 mg/dL 0.52 - 1.25 mg/dL [facility] EGFR IF NonAfrican Algerian >90.0 >60 mL/min [facility] Comment on above: KDIGO guidelines pro [...] - 10.7 10*3/uL [facility] Test Performed by [facility], [address] [place], [place] [id number] [place] [address] LAB [facility] Abdomen Pelvis Wo Contras ton 10-22-2021 Patient Name: ANDREW SIFUENTES Computed Tomography ACCESSION EXAM DATE/TIME PROCEDURE ORDERING PROVIDER [id number] 10/22/2021 13:[address] Abdomen/Pelvis (No SRIVASTAVA, WING PO, No IV) CPT code 15485 Reason For Exam (CT Abdomen/Pelvis (No PO, [...] HARLAN Transcribed Date and Time: 10/22/2021 2:37 [facility] Humphrey Melton MD - 10/22/2021 Patient Name: ANDREW SIFUENTES [facility]#: [id number] Computed Tomography ACCESSION EXAM DATE/TIME PROCEDURE ORDERING PROVIDER [id number] 10/22/2021 13:[address] Abdomen/Pelvis (No SRIVASTAVA, WING PO, No IV) CPT code 24675 Reason For Exam (CT Abdomen/Pelvis (No PO, [...] Tomography ACCESSION EXAM DATE/TIME PROCEDURE ORDERING PROVIDER [id number] 10/22/2021 13:[address] Abdomen/Pelvis (No SRIVASTAVAWING KESSLER PO, No IV) CPT code 87177 Reason For Exam (CT Abdomen/Pelvis (No PO, [...] Transcribed Date and Time: 10/22/2021 2:37 Normal [facility] Hemogram w/ Autodiffon 10-22 Abs Baso Cnt 0.1 10*3/uL Normal 0.0-0.2 [facility] Comment on above: Performed By: #### P T #### [facility] [address] [place] [address] Abs Neutrophile Cnt 6.0 10*3/uL Normal 1.8-7.0 [facility] Comment on above: Performed By: #### P T #### [facility] [address] [place] [address] Basophils/100 WBC (Bld) 1.0 % Normal 0.0-2.0 [facility] Comment on above: Performed By: #### P T #### [facility] [address] [place] [address] Eosinophils (Bld) [#/Vol] 0.3 10*3/uL Normal 0.0-0.5 [facility] Comment on above: Performed By: #### P T #### [facility] [address] [place] [address] Eosinophils/100 WBC (Bld) 3.0 % Normal 1.0-6.0 [facility] Comment on above: Performed By: #### P T #### [facility] [address] [place] [address] Erythrocyte distribution width (RBC) [Ratio] 17.1 % High 11.5-14.5 [facility] Comment on above: Performed By: #### P T #### [place] [address] [place] [address] Granulocytes/100 WBC (Bld) 64.1 % Normal 40.0-80.0 [facility] Comment on above: Performed By: #### P T #### [facility] [address] [place] [address] Hematocrit (Bld) [Volume fraction] 33.4 % Low 40.0-52.0 [facility] Comment on above: Performed By: #### P T #### [facility] [address] [place] [address] Hemoglobin (Bld) [Mass/Vol] 10.9 g/dL Low 13.0-18.0 [facility] Comment on above: Performed By: #### P T #### [facility] [address] [place] [address] Lymphocytes (Bld) [#/Vol] 2.5 10*3/uL Normal 1.0-4.3 [facility] Comment on above: Performed By: #### P T #### [facility] [address] [place] [address] Lymphocytes/100 WBC (Bld) 26.3 % Normal 20.0-40.0 [facility] Comment on above: Performed By: #### P T #### [facility] [address] [place] [address] MCH (RBC) [Entitic mass] 28.2 pg Normal 26.0-34.0 [facility] Comment on above: Performed By: #### P T #### [facility] [address] [place] [address] MCHC 32.7 % Normal 32.0-36.0 [facility] Comment on above: Performed By: #### P T #### [facility] [address] [place] [address] MCV (RBC) [Entitic vol] 86.3 fL Normal 80.0-98.0 [facility] Comment on above: Performed By: #### P T #### [facility] [address] [place] [address] Monocytes (Bld) [#/Vol] 0.5 10*3/uL Normal 0.0-0.8 [facility] Comment on above: Performed By: #### P T #### [facility] [address] [place] [address] Monocytes/100 WBC (Bld) 5.6 % Normal 2.0-10.0 [facility] Comment on above: Performed By: #### P T #### [facility] [address] [place] [address] Platelet mean volume (Bld) [Entitic vol] 7.6 fL Normal 7.4-12.4 [facility] Comment on above: Result Comment: MPV is a calculated measurement using platelet volume ratio. Performed By: #### P T #### [facility] [address] [place] [address] Platelets (Bld) [#/Vol] 369 10*3/uL Normal 140-440 [facility] Comment on above: Performed By: #### P T #### [facility] [address] [place] [address] RBC (Bld) [#/Vol] 3.87 10*6/uL Low 4.40-5.90 [facility] Comment on above: Performed By: #### P T #### [facility] [address] [place] [address] WBC (Bld) [#/Vol] 9.4 10*3/uL Normal 3.6-10.7 [facility] Comment on above: Performed By: #### P T #### [facility] [address] [place] [address] Magnesiumon 10-22-2021 Magnesium [Mass/Vol] 2.0 mg/dL Normal 1.6-2.3 [facility] Comment on above: Performed By: #### P T #### [facility] [address] [place] [address] Magnesium [Mass/Vol] 2.0 mg/dL 1.6 - 2 .3 mg/dL [facility] No Panel Informationon 10-22 Radiology Study observation (narrative) [facility] Work Phone: Test Performed by [facility], [address] [place], [place] [id number] [place] [address] LAB [facility] Prothrombin Timeon 2 INR 1.1 Normal 0.9-1.1 [facility] Comment on above: Result [...] HEMDF, LDH3, BMP3, MG3, PT, CEA2 #### [facility] [address] [place] [address] #### B2GPM, B2GPA, B2GPG #### [address] [id number] PT Coag (PPP) [Time] 11.8 s Normal 9.0-12.0 [facility] Comment on above: Result Comment: . Performed By: #### C A19O, LUPUS #### The performing lab is in the report. #### NSEO #### [facility] #### HEMDF, LDH3, BMP3, MG3, PT, CEA2 #### [facility] [address] [place] [address] #### B2GPM, B2GPA, B2GPG #### [employer] [address] [place] [address] Pro[employer]INRon 10-22-2021 INR Coag (Bld) [Relative time] 1.1 {INR} [employer] Work Phone: Comment on above: Recommended Anticoag [...] [Time] 11.8 s 9.0 - 12.0 s [employer] Work Phone: Comment on above: . Test Performed by [facility], [address] [place], [place] [id number] [place] [address] LAB [facility] Work Phone: VL Ankle Art Brachial Indice s Extremity Bilateralon 10-22-2021 [facility] Ankle Brachial Index Report Patient DO GurpreetB: 1950 Study 10/21/2021 Name: Andrew Gonzalez (71yrs) Date: Age: 71 Account: [id number] Gender: M Loc: [id number] BP: Ordering Physician: Shruthi Malik Umbrella Mender: Rody Cross RDMS, RVT Interpreting Physician: Carina Call Location: [facility] Indications: Foot wounds. Originally ordered as a full PVR. Ordering VACUUM CLEANER REPAIR PERSON had to modify the order to ABIs [...] supine position. Images were obtained using a Zerplys vascular ultrasound machine. Arterial pressure indices: + [...] electronically signed by Carina Call 10/22/2021 13:21 [facility] Carina Call MD - 10/22/2021 [facility] [place] Ankle Brachial Index Report Patient RADHA Sifuentes: 1950 Study 10/21/2021 Name: Andrew Gonzalez (71yrs) Date: Age: 71 Account: [id number] Gender: M Loc: 444W BP: Ordering Physician: Shruthi Malik Umbrella Mender: Rody Cross RDMS, RVT Interpreting Physician: Carina Call Location: [facility] Indications: Foot wounds. Originally ordered as a full PVR. Ordering VACUUM CLEANER REPAIR PERSON had to modify the order to ABIs [...] supine position. Images were obtained using a Zerplys vascular ultrasound machine. Arterial pressure indices: + [...] electronically signed by Carina Call 10/22/2021 13:21 [facility] Work Phone: [facility] Work Phone: Basic Metabolic Panelon 10-05 Calcium [Mass/Vol] 9.1 mg/dL Normal 8.4-10.4 [facility] Comment on above: Performed By: #### C OVAG #### [facility] [address] [place] [address] Anion gap [Moles/Vol] 6 mmol/L Normal 3-13 [facility] Comment on above: Performed By: #### C OVAG #### [facility] Reachpod - Inovakt[employer] Bilisim [facility] [address] [place] [address] CO2 [Moles/Vol] 29 mmol/L Normal 22-30 [facility] Comment on above: Performed By: #### C OVAG #### [facility] [employer] - [employer] [facility] [address] [place] [address] Creatinine [Mass/Vol] 0.90 mg/dL Normal 0.52-1.25 [facility] Comment on above: Performed By: #### C OVAG #### [facility] [employer] - In[employer] Bilisim [facility] [address] [place] [address] GFR/1.73 sq M.predicted among blacks MDRD (S/P/Bld) [Vol rate/Area] mL/min/{1.73_m2} Normal >60 [facility] Comment on above: Performed By: #### C OVAG #### [facility] [employer] - [employer] [facility] [address] [place] [address] GFR/1.73 sq M.predicted among non-blacks MDRD (S/P/Bld) [Vol rate/Area] 86.6 mL/min/{1.73_m2} Normal >60 [facility] Comment on above: Result Comment: KDIG [...] secretion. Performed By: #### C OVAG #### [facility] [address] [place] [address] Glucose [Mass/Vol] 106 mg/dL High 70-100 [facility] Comment on above: Performed By: #### C OVAG #### [facility] [address] [place] [address] Urea nitrogen [Mass/Vol] 18 mg/dL High 7-17 [facility] Comment on above: Performed By: #### C OVAG #### [facility] [address] [place] [address] Chloride [Moles/Vol] 105 mmol/L Normal 98-107 [facility] Comment on above: Performed By: #### C OVAG #### [facility] [address] [place] [address] Potassium [Moles/Vol] 4.3 mmol/L Normal 3.5-5.1 [facility] Comment on above: Performed By: #### C OVAG #### [facility] [address] [place] [address] Sodium [Moles/Vol] 139 mmol/L Normal 135-145 [facility] Comment on above: Performed By: #### C OVAG #### [facility] [address] [place] [address] Anion gap [Moles/Vol] 6 mmol/L 3 - 13 mmol/L [facility] Calcium [Mass/Vol] 9.1 mg/dL 8.4 - 10. 4 mg/dL [facility] Chloride [Moles/Vol] 105 mmol/L 98 - 10 7 mmol/L [facility] CO2 [Moles/Vol] 29 mmol/L 22 - 30 mmol/L [facility] Creatinine [Mass/Vol] 0.9 mg/dL 0.52 - 1.25 mg/dL [facility] EGFR IF NonAfrican Algerian 86.6 mL/min >60 [facility] Comment on above: [...] - 17 mg/dL [facility] Test Performed by [facility], [address] [place], [place] [address] [facility] LAB [facility] C-Reactive Proteinon 022 CRP [Mass/Vol] 33.5 mg/L High 0.0-9.9 [facility] Comment on above: Result Comment: . Performed By: #### P T #### [facility] [address] [place] [address] CRP [Mass/Vol] 33.5 mg/L High 0.0 - 9.9 mg/L [facility] Comment on above: . Interpretation and review of laboratory results Abnormal [facility] Test Performed by [facility], [address], [place], [place] [address] [facility] CR Calcaneus 2+ Views Lefton 10-21-2021 CR Calcaneus 2+ Views Left Patient Name: ANDREW SIFUENTES [facility]#: [id number] Diagnostic Radiology ACCESSION EXAM DATE/TIME PROCEDURE ORDERING PROVIDER [id number] 10/21/2021 15:30 EDT CR Calcaneus 2+ Views [id number] -SHRUTHI MALIK Left CPT code 44326 Reason For Exam (CR Calcaneus 2+ Views [...] Transcribed Date and Time: 10/21/2021 4:33 Normal [facility] CR Chest 1 View Frontalon CR Chest 1 View Frontal Patient Name: ANDREW SIFUENTES Diagnostic Radiology ACCESSION EXAM DATE/TIME PROCEDURE ORDERING PROVIDER [id number] 10/21/2021 08:16 EDT CR Chest 1 View Frontal [id number] FORDSHAILESHMAY CPT code 80449 Reason For Exam (CR Chest 1 View [...] Transcribed Date and Time: 10/21/2021 8:33 Normal [facility] D-Dimer, Innovanceon 2 022 D-Dimer, Innovance 1.51 mg/L High <0.19-0.50 [facility] Comment on above: Result Comment: Inno saba D-Dimer values of <0.50 mg/L FEU can be used in combination with a pre-test probability model (e.g. Well's) to exclude pulmonary embolism (PE) disease, as well as an aid in the diagnosis of deep vein thrombosis (DVT). Performed By: #### P T #### [facility] [address] [place] [address] D-Dimer, Quantitativeon 10-05 D-Dimer, Quant 1.51 mg/L High <0.19 - 0.50 [facility] Comment on above: Innovance D-Dimer va lues of <0.50 mg/L FEU can be used in combination with a pre-test probability model (e.g. Well's) to exclude pulmonary embolism (PE) disease, as well as an aid in the diagnosis of deep vein thrombosis (DVT). Interpretation and review of laboratory results Abnormal [facility] Test Performed by [facility], [address], [place], [place] [id number] [place] [address] LAB [facility] ED Provider Noteon 2 ED Provider Note B [place] [facility] EMERGENCY DEPARTMENT ENCOUNTER Pt Name: Andrew [...] (HCC) ? Kidney stone ? Neuropathy ? ANALYTICS SENIOR MANAGER (ventriculoperitoneal) shunt status SURGICAL HISTORY Past Surgical [...] and Family: Not on file ? Attends [employer] Services: Not on file ? Active Member [...] LUNGS: Respirations (more content not included)... Normal [facility] Hemogramon 10-21-2021 Erythrocyte distribution width (RBC) [Ratio] 17.3 % High 11.5-14.5 [facility] Comment on above: Performed By: #### C OVAG #### [facility] [address] [place] [address] Hematocrit (Bld) [Volume fraction] 33.6 % Low 40.0-52.0 [facility] Comment on above: Performed By: #### C OVAG #### [facility] [address] [place] [address] Hemoglobin (Bld) [Mass/Vol] 10.9 g/dL Low 13.0-18.0 [facility] Comment on above: Performed By: #### C OVAG #### [facility] [address] [place] [address] MCH (RBC) [Entitic mass] 27.8 pg Normal 26.0-34.0 [facility] Comment on above: Performed By: #### C OVAG #### [facility] [address] [place] [address] MCHC 32.5 % Normal 32.0-36.0 [facility] Comment on above: Performed By: #### C OVAG #### [facility] [address] [place] [address] MCV (RBC) [Entitic vol] 85.6 fL Normal 80.0-98.0 [facility] Comment on above: Performed By: #### C OVAG #### [facility] [address] [place] [address] Platelet mean volume (Bld) [Entitic vol] 7.7 fL Normal 7.4-12.4 [facility] Comment on above: Result Comment: MPV is a calculated measurement using platelet volume ratio. Performed By: #### C OVAG #### [facility] [address] [place] [address] Platelets (Bld) [#/Vol] 404 10*3/uL Normal 140-440 [facility] Comment on above: Performed By: #### C OVAG #### [facility] [address] [place] [address] RBC (Bld) [#/Vol] 3.93 10*6/uL Low 4.40-5.90 [facility] Comment on above: Performed By: #### C OVAG #### [facility] [address] [place] [address] WBC (Bld) [#/Vol] 11.6 10*3/uL High 3.6-10.7 [facility] Comment on above: Performed By: #### C OVAG #### [facility] [address] [place] [address] Hemogram (CBC)on 10-21-2021 Hematocrit (Bld) [Volume fraction] 33.6 % Low 40.0 - 52.0 % [facility] Hemoglobin (Bld) [Mass/Vol] 10.9 g/dL Low 13.0 - 18.0 g/dL [facility] Interpretation and review of laboratory results Abnormal [facility] MCH (RBC) [Entitic mass] 27.8 pg 26.0 - 34.0 pg [facility] MCHC (RBC) [Mass/Vol] 32.5 % 32.0 - 36.0 % [facility] MCV (RBC) [Entitic vol] 85.6 fL 80.0 [...] 11.6 10*3/uL High 3.6 - 10.7 10*3/uL [facility] Test Performed by [facility], [address] [place], [place] [id number] [place] [address] LAB [facility] NM LUNG VENT/PERFUSION (VQ)o n 10-21-2021 Patient Name: ANDREW SIFUENTES Nuclear Medicine ACCESSION EXAM DATE/TIME PROCEDURE ORDERING PROVIDER [id number] 10/21/2021 07:55 EDT NM Pulmonary Perfusion [id number] MAY BOGGS w/ Vent Aerosol CPT code 68876 A9567 Reason For Exam (NM Pulmonary Perfusion [...] JOHN Transcribed Date and Time: 10/21/2021 8:49 [facility] Henry Harvey MD - 10/21/2021 Patient Name: ANDREW SIFUENTES Nuclear Medicine ACCESSION EXAM DATE/TIME PROCEDURE ORDERING PROVIDER [id number] 10/21/2021 07:55 EDT NM Pulmonary Perfusion [id number] -SHAILESHLUCÍA KNOWLESELLE w/ Vent Aerosol CPT code 33982 A9567 Reason For Exam (NM Pulmonary Perfusion [...] JOHN Transcribed Date and Time: 10/21/2021 8:49 [facility] Work Phone: NM LUNG VENT/PERFUSION (VQ)O rdered By: Henry Harvey on 10-21-2021 [facility] Work Phone: NM Pulmonary Perfusion w/ Ve nt Aerosol or Gason 10-21-2021 NM Pulmonary Perfusion w/ Vent Aerosol or Gas Patient Name: ANDREW SIFUENTES Nuclear Medicine ACCESSION EXAM DATE/TIME PROCEDURE ORDERING PROVIDER [id number] 10/21/2021 07:55 EDT NM Pulmonary Perfusion [id number] -MAY CASH w/ Vent Aerosol CPT code 33968 A9567 Reason For Exam (NM Pulmonary Perfusion [...] Transcribed Date and Time: 10/21/2021 8:49 Normal [facility] No Panel Informationon 10-21 Radiology Study observation (narrative) [facility] Work Phone: Prothrombin Timeon INR 1.1 Normal 0.9-1.1 [facility] Comment on above: Result [...] Infarction Performed By: #### C OVAG #### [facility] [address] [place] [address] PT Coag (PPP) [Time] 11.5 s Normal 9.0-12.0 [facility] Comment on above: Result Comment: . Performed By: #### C OVAG #### [facility] [address] [place] [address] Protime-INRon 10-21-2021 INR Coag (Bld) [Relative time] 1.1 {INR} [facility] Comment on above: Recommended Anticoag ulant [...] [Time] 11.5 s 9.0 - 12.0 s [facility] Comment on above: . Test Performed by [facility], [address] LAB [facility] Retic Count(%)on 10-21-2021 Retic Count(%) 1.6 Normal [facility] Comment on above: Result Comment: Newb orn < 5% Adults 0.5 - 1.5% Performed By: #### P T #### [facility] [address] [place] [address] Reticulocyteson 10-21-[address] Pct 1.6 [facility] Comment on above: < 5% Adults 0.5 - 1.5% Test Performed by [facility], [address] LAB [facility] Sed Rateon 10-21-2021 Sed Rate 63 mm/h High 0-10 [facility] Comment on above: Performed By: #### P T #### [facility] [address] [place] [address] Sedimentation Rateon 022 Interpretation and review of laboratory results Abnormal [facility] Sed Rate 63 mm/h High 0 - 10 mm/h [facility] Test Performed by [facility], [address] LAB [facility] VL CARMELLA Upr/L Extremity Art 1 -2 Levelson 10-21-2021 VL CARMELLA Upr/L Extremity Art 1-2 Levels Patient Name: ANDREW SIFUENTES Ultrasound ACCESSION EXAM DATE/TIME PROCEDURE ORDERING PROVIDER [id number] 10/21/2021 16:12 EDT VL Upr/L Extremity Art 899341 -SHRUTHI MALIK 1-2 Levels CPT code 88582 Reason For Exam (VL Upr/L Extremity Art 1-2 Levels) both lower legs CARMELLA for both feet wounds. Report [facility] Ankle Brachial Index Report Patient RADHA Sifuentes: 1950 Study 10/21/2021 Name: Andrew Gonzalez (71yrs) Date: Age: 71 Account: [id number] Gender: M Loc: 444W BP: Ordering Physician: Shruthi Malik Umbrella Mender: Rody Cross RDMS, RVT Interpreting Physician: Carina Call Location: [facility] Indications: Foot wounds. Originally ordered as a full PVR. Ordering VACUUM CLEANER REPAIR PERSON had to modify the order to ABIs [...] supine position. Images were obtained using a Zerplys vascular ultrasound machine. Arterial pressure indices: + [...] CARINA HENNESSY Cardiovascular ACCESSION EXAM DATE/TIME PROCEDURE [id number] 10/21/2021 16:12 EDT VL Upr/L Extremity Art 1-2 Levels CPT code 48888 Reason For Exam (VL Upr/L Extremity Art 1-2 Levels) both lower legs CARMELLA for both feet wounds. Report [facility] Ankle Brachial Index Report Patient RADHA Sifuentes: 1950 Study 10/21/2021 Name: Andrew Gonzalez (71yrs) Date: Age: 71 Account: [id number] Cardiovascular Report Gender: M Loc: 444W BP: Ordering Physician: Shruthi Malik Umbrella Mender: Rody Cross RDMS, RVT Interpreting Physician: Carina Call Location: [facility] Indications: Foot wounds. Originally ordered as a full PVR. Ordering VACUUM CLEANER REPAIR PERSON had to modify the order to ABIs [...] in th (more content not included)... Normal [facility] VL LOWER EXTREMITY BILATERAL VENOUS DUPLEXon 10-21-2021 [facility] [place] [facility] Lower Extremity Venous Duplex Report Patient DO GurpreetB: 1950 Study 10/21/2021 Name: Andrew Gonzalez (71yrs) Date: Age: 71 Account: [id number] Gender: M Loc: 444 BP: Ordering Physician: May Cash Umbrella Mender: Rody Cross RDMS, RVT Interpreting Physician: Carina Call Location: [facility] Indications: Bilateral lower leg edema. CRITICAL [...] supine position. Images were obtained using a Zerplys vascular ultrasound machine. Venous flow and imaging: [...] +-------- --------+ + (more content not included)... [facility] Carina Call MD - 10/21/2021 [facility] Lower Extremity Venous Duplex Report Patient DO GurpreetB: 1950 Study 10/21/2021 Name: Andrew Gonzalez (71yrs) Date: Age: 71 Account: [id number] Gender: M Loc: 444 BP: Ordering Physician: May Cash Umbrella Mender: Rody Cross RDMS, RVT Interpreting Physician: Carina Call Location: [facility] Indications: Bilateral lower leg edema. CRITICAL [...] supine position. Images were obtained using a Zerplys vascular ultrasound machine. Venous flow and imaging: [...] + + +----- (more content not included)... [employer] Work Phone: VL LOWER EXTREMITY BILATERAL VENOUS DUPLEXOrdered By: Carina Call on 10-21-2021 [employer] Phone: VL Venous Duplex US Lower Ex t Bilateralon 10-21-2021 VL Venous Duplex US Lower Ext Bilateral Patient Name: ANDREW SIFUENTES Ultrasound ACCESSION EXAM DATE/TIME PROCEDURE ORDERING PROVIDER [id number] 10/21/2021 09:53 EDT VL Venous Duplex US [id number] -MAY CASH Lower Ext Bilateral CPT code 74664 Reason For Exam (VL Venous Duplex US Lower Ext Bilateral) bilateral sqwelling redness Report [facility] Lower Extremity Venous Duplex Report Patient Gurpreet : 1950 Study 10/21/2021 Name: Andrew Gonzalez (71yrs) Date: Age: 71 Account: [id number] Gender: M Loc: 444 BP: Ordering Physician: May Cash Umbrella Mender: Rody Cross RDMS, RVT Interpreting Physician: Carina Call Location: [facility] Indications: Bilateral lower leg edema. CRITICAL [...] supine position. Images were obtained using a Zerplys vascular ultrasound machine. Venous flow and imaging: [...] + + (more content not included)... Normal [facility] Reachpod - In[employer] Bilis[employer] System XR CALCANEUS LEFT (MIN 2 VIE WS)on 10-21-2021 Patient Name: ANDREW SIFUENTES Diagnostic Radiology ACCESSION EXAM DATE/TIME PROCEDURE ORDERING PROVIDER [id number] 10/21/2021 15:30 EDT CR Calcaneus 2+ Views [id number] -HELENA SHRUTHI Maldonado CPT code 93359 Reason For Exam (CR Calcaneus 2+ Views [...] Date and Time: 10/21/2021 4:33 [facility] Alan Wong MD - 10/21/2021 Patient Name: ANDREW SIFUENTES [facility]#: [id number] Diagnostic Radiology ACCESSION EXAM DATE/TIME PROCEDURE ORDERING PROVIDER [id number] 10/21/2021 15:30 EDT CR Calcaneus 2+ Views [id number] -HELENAMARIBEL CHIANGIE Left CPT code 58766 Reason For Exam (CR Calcaneus 2+ Views [...] Radiology ACCESSION EXAM DATE/TIME PROCEDURE ORDERING PROVIDER [id number] 10/21/2021 08:16 EDT CR Chest 1 View Frontal [id number] MAY BOGGS CPT code 45708 Reason For Exam (CR Chest 1 View [...] OSAMA Transcribed Date and Time: 10/21/2021 8:33 [facility] Chandler MD - 10/21/2021 Patient Name: ANDREW SIFUENTES Diagnostic Radiology ACCESSION EXAM DATE/TIME PROCEDURE ORDERING PROVIDER [id number] 10/21/2021 08:16 EDT CR Chest 1 View Frontal [id number] MAY BOGGS CPT code 34871 Reason For Exam (CR Chest 1 View [...] OSAMA Transcribed Date and Time: 10/21/2021 8:33 [facility] Work Phone: XR Chest 1 VWOrdered By: Natalie Loyd on 10-21-2021 [facility] Work Phone: Basophil percentageon 2021 Chloride [Moles/Vol] 108 mmol/L 98-107 [facility] Work Phone: Glucose [Mass/Vol] 93 mg/dL 74-106 [facility] Work Phone: Potassium [Moles/Vol] 3.9 mmol/L 3.5-5.1 [facility] Work Phone: Sodium [Moles/Vol] 140 mmol/L 136-145 [facility] Work Phone: WBC (Bld) [#/Vol] 8.7 10*3/uL 4.4-11.0 [facility] Work Phone: Blood erythrocytes count (nu mber/volume)on 10-20-2021 RBC (Bld) [#/Vol] 3.63 10*6/uL 4.6-6.2 [facility] Work Phone: Blood hemoglobin measurement (mass/volume)on 10-20-2021 Hemoglobin (Bld) [Mass/Vol] 10.1 g/dL 13.0-16.5 [facility] Work Phone: Blood platelet mean volumeon 10-20-2021 Platelet mean volume (Bld) [Entitic vol] 9.8 fL 6.2-12.0 [facility] Work Phone: Determination of erythrocyte mean corpuscular volume (MCV)on 10-20-2021 MCV (RBC) [Entitic vol] 90.1 fL 80-94 [facility] Work Phone: Hematocrit Auto (Bld) [Volum e fraction]on 10-20-2021 Hematocrit (Bld) [Volume fraction] 32.7 % 40-54 [facility] Work Phone: Laboratory - Chemistry and C hemistry - challengeon 10-20-2021 CO2 [Moles/Vol] 25.0 mmol/L 21.0-32.0 [facility] Work Phone: Urea nitrogen/Creatinine [Mass ratio] 17.4 mg/mg 10-20 [facility] Work Phone: Laboratory - Hematology and Cell countson 10-20-2021 Erythrocyte distribution width (RBC) [Entitic vol] 52.1 fL 35.1-43.9 [facility] Work Phone: Erythrocyte distribution width (RBC) [Ratio] 15.6 % 11.6-14.6 [facility] Work Phone: MCH (RBC) [Entitic mass] 27.8 pg 27.0-32.0 [facility] Work Phone: MCHC Auto (RBC) [Mass/Vol]on 10-20-2021 MCHC (RBC) [Mass/Vol] 30.9 g/dL 32-36 [facility] Work Phone: No Panel Informationon 10-20 Estimated GFR (MDRD) Amer 133 mL/min >60 [facility] Work Phone: Comment on above: GFR Calc Estimated GFR (MDRD) Non-Af Amer 110 mL/min >60 [facility] Work Phone: Comment on above: Non- GFR Calc Platelets bldon 10-20-2021 Platelets (Bld) [#/Vol] 404 10*3/uL 150-450 [facility] Work Phone: Serum or plasma calcium oral urement (mass/volume)on 10-20-2021 Calcium [Mass/Vol] 9.1 mg/dL 8.5-10.1 [facility] Work Phone: Serum or plasma creatinine m easurement (mass/volume)on 10-20-2021 Creatinine [Mass/Vol] 0.75 mg/dL 0.70-1.30 [facility] Work Phone: Comment on above: The validity of the calculated GFR & GFRAA in patients over 70 years has not been determined. Clinical correlation is essential. Serum or plasma urea nitroge n measurement (mass/volume)on 10-20-2021 Urea nitrogen [Mass/Vol] 13 mg/dL 7-18 [facility] Work Phone: Thin prep Papanicolaou smear with manual screeningon 10-20-2021 Thin prep Papanicolaou smear with manual screening 7 5-15 [facility] Work Phone: CNPNon 10-17-2021 CNPN Normal [facility] Absolute lymphocyte counton 09-19-2021 Lymphocytes Auto (Unsp spec) [#/Vol] 1.74 10*3/uL 0.83-4.51 [facility] Work Phone: Basophil percentageon 2021 Basophils/100 WBC (Bld) 0.6 % 0-1 [facility] Work Phone: Bilirubin [Mass/Vol] 0.30 mg/dL 0.20-1.00 [facility] Work Phone: Comment on above: For patients on eltr ombopag therapy, use of Dimension [place] TBIL is not recommended. Chloride [Moles/Vol] 105 mmol/L 98-107 [facility] Work Phone: Eosinophils/100 WBC (Bld) 3.5 % 0-5 [facility] Work Phone: Glucose [Mass/Vol] 91 mg/dL 74-106 [facility] Work Phone: Neutrophils (Bld) [#/Vol] 4.2 10*3/uL 2.0-7.7 [facility] Work Phone: Neutrophils/100 WBC (Bld) 62.6 % 47-70 [facility] Work Phone: Potassium [Moles/Vol] 3.8 mmol/L 3.5-5.1 [facility] Work Phone: Protein [Mass/Vol] 6.3 g/dL 6.4-8.2 [facility] Work Phone: Sodium [Moles/Vol] 139 mmol/L 136-145 [facility] Work Phone: WBC (Bld) [#/Vol] 6.6 10*3/uL 4.4-11.0 [facility] Work Phone: Blood erythrocytes count (nu mber/volume)on 09-19-2021 RBC (Bld) [#/Vol] 3.47 10*6/uL 4.6-6.2 [facility] Work Phone: Blood hemoglobin measurement (mass/volume)on 09-19-2021 Hemoglobin (Bld) [Mass/Vol] 10.2 g/dL 13.0-16.5 [facility] Work Phone: Blood lymphocytes/100 leukoc yteson 09-19-2021 Lymphocytes/100 WBC (Bld) 26.2 % 19-41 [facility] Work Phone: Blood monocytes/100 leukocyt eson 09-19-2021 Monocytes/100 WBC (Bld) 6.5 % 0-10 [facility] [facility] Work Phone: Blood platelet mean volumeon 09-19-2021 Platelet mean volume (Bld) [Entitic vol] 9.6 fL 6.2-12.0 [facility] Work Phone: Determination of erythrocyte mean corpuscular volume (MCV)on 09-19-2021 MCV (RBC) [Entitic vol] 94.8 fL 80-94 [facility] Work Phone: Hematocrit Auto (Bld) [Volum e fraction]on 09-19-2021 Hematocrit (Bld) [Volume fraction] 32.9 % 40-54 [facility] Work Phone: Laboratory - Chemistry and C hemistry - challengeon 09-19-2021 ALP [Catalytic activity/Vol] 109 U/L 45-117 [facility] Work Phone: ALT [Catalytic activity/Vol] 23 U/L 16-61 [facility] Work Phone: CO2 [Moles/Vol] 26.0 mmol/L 21.0-32.0 [facility] Work Phone: Globulin (S) [Mass/Vol] 3.5 g/dL 2.2-4.2 [facility] Work Phone: Urea nitrogen/Creatinine [Mass ratio] 15.3 mg/mg 10-20 [facility] Work Phone: Laboratory - Hematology and Cell countson 09-19-2021 Erythrocyte distribution width (RBC) [Entitic vol] 59.4 fL 35.1-43.9 [facility] Work Phone: Erythrocyte distribution width (RBC) [Ratio] 17.1 % 11.6-14.6 [facility] Work Phone: Immature granulocytes/100 WBC (Bld) 0.600 % 0.0-0.9 [facility] Work Phone: Comment on above: IG% - Immature Granu locytes (promyelocytes, myelocytes and metamyelocytes) > 1% indicates that a LEFT SHIFT is Present. MCH (RBC) [Entitic mass] 29.4 pg 27.0-32.0 [facility] Work Phone: Nucleated RBC/100 WBC (Bld) [Ratio] 0 % 0-5 [facility] Work Phone: MCHC Auto (RBC) [Mass/Vol]on 09-19-2021 MCHC (RBC) [Mass/Vol] 31.0 g/dL 32-36 [facility] Work Phone: No Panel Informationon 09-19 Estimated GFR (MDRD) Amer 175 mL/min >60 [facility] Work Phone: Comment on above: GFR Calc Estimated GFR (MDRD) Non-Af Amer 145 mL/min >60 [facility] Work Phone: Comment on above: Non- GFR Calc Platelets bldon 09-19-2021 Platelets (Bld) [#/Vol] 342 10*3/uL 150-450 [facility] Work Phone: Serum or plasma albumin oral urement (mass/volume)on 09-19-2021 Albumin [Mass/Vol] 2.8 g/dL 3.2-5.0 [facility] Work Phone: Serum or plasma albumin/glob ulin mass ratioon 09-19-2021 Albumin/Globulin [Mass ratio] 0.8 {ratio} 0.9-2.4 [facility] Work Phone: Serum or plasma calcium oral urement (mass/volume)on 09-19-2021 Calcium [Mass/Vol] 9.0 mg/dL 8.5-10.1 [facility] Work Phone: Serum or plasma creatinine m easurement (mass/volume)on 09-19-2021 Creatinine [Mass/Vol] 0.59 mg/dL 0.70-1.30 [facility] Work Phone: Comment on above: The validity of the calculated GFR & GFRAA in patients over 70 years has not been determined. Clinical correlation is essential. Serum or plasma urea nitroge n measurement (mass/volume)on 09-19-2021 Urea nitrogen [Mass/Vol] 9 mg/dL 7-18 [facility] Work Phone: Thin prep Papanicolaou smear with manual screeningon 09-19-2021 Thin prep Papanicolaou smear with manual screening 12 U/L 15-37 [facility] Work Phone: Thin prep Papanicolaou smear with manual screening 8 5-15 [facility] Work Phone: OPERATIVE NOon 08-22-2021 OPERATIVE NO Normal [facility] Basic metabolic 2000 panelon 08-19-2021 Anion gap [Moles/Vol] 10 mmol/L Normal 9-18 [facility] Comment on above: Order Comment: Speci men Type: BLOOD SPECIMENOrdering Facility: [facility] Address: [address] [place] [address] Performed By: #### 2 4321-2 ####[facility] LABORATORYCLIA [id number] [address] STATES OF [facility] Calcium [Mass/Vol] 8.6 mg/dL Normal 8.5-10.2 [facility] Comment on above: Order Comment: Speci men Type: BLOOD SPECIMENOrdering Facility: [facility] Address: [address] [address] Performed By: #### 2 4321-2 ####[facility] LABORATORYCLIA [id number] [address] [facility] Chloride [Moles/Vol] 99 mmol/L Normal 97-105 [facility] Comment on above: Order Comment: Speci men Type: BLOOD SPECIMENOrdering Facility: [facility] Address: [address] [place] [address] Performed By: #### 2 4321-2 ####[facility] LABORATORYCLIA [id number] [address] [place] CO2 [Moles/Vol] 29 mmol/L Normal 22-30 [facility] Comment on above: Order Comment: Speci men Type: BLOOD SPECIMENOrdering Facility: [facility] Address: [address] [place] [address] Performed By: #### 2 4321-2 ####[facility] SERVICESCLIA [id number] [address] OF [facility] Creatinine [Mass/Vol] 0.58 mg/dL Low 0.73-1.22 [facility] Comment on above: Order Comment: Speci men Type: BLOOD SPECIMENOrdering Facility: [facility] Address: [address] [place] [address] Performed By: #### 2 4321-2 ####[facility] LABORATORYCLIA [id number] [address] ESTIMATED GLOMERULAR FILTRATION RATE 106 mL/min/1.73m??? Normal >=60 [facility] Comment on above: Order Comment: Speci men Type: BLOOD SPECIMENOrdering Facility: [facility] Address: [address] [place] [address] Result Comment: Luzmaria mated Glomerular Filtration Rate [...] actual GFR. Performed By: #### 2 4321-2 ####[facility] LABORATORYCLIA [id number] [place] [address] [place] Glucose [Mass/Vol] 101 mg/dL High 74-99 [facility] Comment on above: Order Comment: Shira feldman Type: BLOOD SPECIMENOrdering Facility: [facility] Address: [address] [place] [address] Result Comment: The [place] [employer] (ADA) provides guidance for cutoff [...] Standards of Medical Care in Diabetes 2016, [place] [employer]. Diabetes Care. 2016.39(Suppl 1). Performed By: #### 2 4321-2 ####[facility] LABORATORYCLIA [id number] [place] [address] [place] Potassium [Moles/Vol] 3.5 mmol/L Low 3.7-5.1 [facility] Comment on above: Order Comment: Shira feldman Type: BLOOD SPECIMENOrdering Facility: [facility] Address: [address] [place] [address] Performed By: #### 2 4321-2 ####[facility] LABORATORYCLIA [id number] [place] [address] [place] Sodium [Moles/Vol] 138 mmol/L Normal 136-144 [facility] Comment on above: Order Comment: Shira feldman Type: BLOOD SPECIMENOrdering Facility: [facility] Address: [address] [place] [address] Performed By: #### 2 4321-2 ####[facility] LABORATORYCLIA [id number] [place] [address] [place] Urea nitrogen [Mass/Vol] 11 mg/dL Normal 9-24 [facility] Comment on above: Order Comment: Speci men Type: BLOOD SPECIMENOrdering Facility: [facility] Address: [address] [place] [address] Performed By: #### 2 4321-2 ####[facility] LABORATORYCLIA [id number] [address] [place] CASE MANAGEMon 08-19-2021 CASE MANAGEM Normal [facility] CBC W Auto Differential pane l (Bld)on 08-19-2021 Basophils (Bld) [#/Vol] 0.03 10*3/uL Normal <0.11 [facility] Comment on above: Order Comment: Speci men Type: BLOOD SPECIMENOrdering Facility: [facility] Address: [address] [place] [address] Performed By: #### 5 7021-8 ####[facility] LABORATORYCLIA [id number] [address] [place] Basophils/100 WBC (Bld) 0.4 % Normal [facility] Comment on above: Order Comment: Speci men Type: BLOOD SPECIMENOrdering Facility: [facility] Address: [address] [place] [address] Performed By: #### 5 7021-8 ####[facility] LABORATORYCLIA [id number] [address] [place] Differential cell count method Nom (Bld) Auto Normal [facility] Comment on above: Order Comment: Speci men Type: BLOOD SPECIMENOrdering Facility: [facility] Address: [address] [place] [address] Performed By: #### 5 7021-8 ####[facility] LABORATORYCLIA [id number] [place] [address] [place] Eosinophils (Bld) [#/Vol] 0.24 10*3/uL Normal <0.46 [facility] Comment on above: Order Comment: Speci men Type: BLOOD SPECIMENOrdering Facility: [facility] Address: [address] [place] [address] Performed By: #### 5 7021-8 ####[facility] LABORATORYCLIA [id number] [address] [place] Eosinophils/100 WBC (Bld) 3.1 % Normal [facility] Comment on above: Order Comment: Speci men Type: BLOOD SPECIMENOrdering Facility: [facility] Address: [address] [place] [address] Performed By: #### 5 7021-8 ####[facility] LABORATORYCLIA [id number] [address] Erythrocyte distribution width (RBC) [Ratio] 17.5 % High 11.5-15.0 [facility] Comment on above: Order Comment: Speci men Type: BLOOD SPECIMENOrdering Facility: [facility] Address: [address] [place] [address] Performed By: #### 5 7021-8 ####[facility] LABORATORYCLIA [id number] [address] Hematocrit (Bld) [Volume fraction] 30.2 % Low 39.0-51.0 [facility] Comment on above: Order Comment: Speci men Type: BLOOD SPECIMENOrdering Facility: [facility] Address: [address] [place] [address] Performed By: #### 5 7021-8 ####[facility] LABORATORYCLIA [id number] [address] [place] Hemoglobin (Bld) [Mass/Vol] 9.6 g/dL Low 13.0-17.0 [facility] Comment on above: Order Comment: Speci men Type: BLOOD SPECIMENOrdering Facility: [facility] Address: [address] [place] [address] Performed By: #### 5 7021-8 ####[facility] LABORATORYCLIA [id number] [address] IMMATURE GRAN % 0.4 % Normal [facility] Comment on above: Order Comment: Speci men Type: BLOOD SPECIMENOrdering Facility: [facility] Address: [address] [place] [address] Performed By: #### 5 7021-8 ####[facility] LABORATORYCLIA [id number] [address] IMMATURE GRAN ABS 0.03 k/uL Normal <0.10 [facility] Comment on above: Order Comment: Speci men Type: BLOOD SPECIMENOrdering Facility: [facility] Address: [address] [place] [address] Performed By: #### 5 7021-8 ####[facility] LABORATORYCLIA [id number] [address] Lymphocytes (Bld) [#/Vol] 1.71 10*3/uL Normal 1.00-4.00 [facility] Comment on above: Order Comment: Speci men Type: BLOOD SPECIMENOrdering Facility: [facility] Address: [address] [place] [address] Performed By: #### 5 7021-8 ####[facility] LABORATORYCLIA [id number] [address] Lymphocytes/100 WBC (Bld) 22.2 % Normal [facility] Comment on above: Order Comment: Speci men Type: BLOOD SPECIMENOrdering Facility: [facility] Address: [address] [place] [address] Performed By: #### 5 7021-8 ####[facility] LABORATORYCLIA [id number] [address] MCH (RBC) [Entitic mass] 29.4 pg Normal 26.0-34.0 [facility] Comment on above: Order Comment: Speci men Type: BLOOD SPECIMENOrdering Facility: [facility] Address: [address] [place] [address] Performed By: #### 5 7021-8 ####[facility] LABORATORYCLIA [id number] [address] MCHC (RBC) [Mass/Vol] 31.8 g/dL Normal 30.5-36.0 [facility] Comment on above: Order Comment: Speci men Type: BLOOD SPECIMENOrdering Facility: [facility] Address: [address] [place] [address] Performed By: #### 5 7021-8 ####[facility] LABORATORYCLIA [id number] [address] [place] MCV (RBC) [Entitic vol] 92.6 fL Normal 80.0-100.0 [facility] Comment on above: Order Comment: Speci men Type: BLOOD SPECIMENOrdering Facility: [facility] Address: [address] [place] [address] Performed By: #### 5 7021-8 ####[facility] LABORATORYCLIA [id number] [address] [place] Monocytes (Bld) [#/Vol] 0.50 10*3/uL Normal <0.87 [facility] Comment on above: Order Comment: Speci men Type: BLOOD SPECIMENOrdering Facility: [facility] Address: [address] [place] [address] Performed By: #### 5 7021-8 ####[facility] LABORATORYCLIA [id number] [address] [place] Monocytes/100 WBC (Bld) 6.5 % Normal [facility] Comment on above: Order Comment: Speci men Type: BLOOD SPECIMENOrdering Facility: [facility] Address: [address] [place] [address] Performed By: #### 5 7021-8 ####[facility] LABORATORYCLIA [id number] [address] [place] Neutrophils (Bld) [#/Vol] 5.20 10*3/uL Normal 1.45-7.50 [facility] Comment on above: Order Comment: Speci men Type: BLOOD SPECIMENOrdering Facility: [facility] Address: [address] [place] [address] Performed By: #### 5 7021-8 ####[facility] LABORATORYCLIA [id number] [address] [place] Neutrophils/100 WBC (Bld) 67.4 % Normal [facility] Comment on above: Order Comment: Speci men Type: BLOOD SPECIMENOrdering Facility: [facility] Address: [address] [place] [address] Performed By: #### 5 7021-8 ####[facility] LABORATORYCLIA [id number] [address] [place] Nucleated RBC (Bld) [#/Vol] 10*3/uL Normal <0.01 [facility] Comment on above: Order Comment: Speci men Type: BLOOD SPECIMENOrdering Facility: [facility] Address: [address] [place] [address] Performed By: #### 5 7021-8 ####[facility] LABORATORYCLIA [id number] [address] Nucleated RBC/100 WBC (Bld) [Ratio] 0.0 /100 WBC Normal [facility] Comment on above: Order Comment: Speci men Type: BLOOD SPECIMENOrdering Facility: [facility] Address: [address] [place] [address] Performed By: #### 5 7021-8 ####[facility] LABORATORYCLIA [id number] [address] [place] Platelet mean volume (Bld) [Entitic vol] 8.9 fL Low 9.0-12.7 [facility] Comment on above: Order Comment: Speci men Type: BLOOD SPECIMENOrdering Facility: [facility] Address: [address] [place] [address] Performed By: #### 5 7021-8 ####[facility] LABORATORYCLIA [id number] [address] [place] Platelets (Bld) [#/Vol] 408 10*3/uL High 150-400 [facility] Comment on above: Order Comment: Speci men Type: BLOOD SPECIMENOrdering Facility: [facility] Address: [address] [address] Performed By: #### 5 7021-8 ####[facility] LABORATORYCLIA [id number] [address] [place] RBC (Bld) [#/Vol] 3.26 10*6/uL Low 4.20-6.00 [facility] Comment on above: Order Comment: Speci men Type: BLOOD SPECIMENOrdering Facility: [facility] Address: [address] [place] [address] Performed By: #### 5 7021-8 ####[facility] LABORATORYCLIA [id number] [address] [place] [facility] WBC (Bld) [#/Vol] 7.71 10*3/uL Normal 3.70-11.00 [facility] Comment on above: Order Comment: Speci men Type: BLOOD SPECIMENOrdering Facility: [facility] Address: [address] [place] [address] Performed By: #### 5 7021-8 ####[facility] LABORATORYCLIA [id number] [address] [place] CNDSon 08-19-2021 CNDS Normal [facility] CONSULT PROGon 08-19-2021 CONSULT PROG Normal [facility] THERAPY NTon 08-19-2021 THERAPY NT Normal [facility] Basic metabolic 2000 panelon 08-18-2021 Anion gap [Moles/Vol] 11 mmol/L Normal 9-18 [facility] Comment on above: Order Comment: Speci men Type: BLOOD SPECIMENOrdering Facility: [facility] Address: [address] [place] [address] Performed By: #### 2 4321-2 ####[facility] LABORATORYCLIA [id number] [address] STATES [facility] Calcium [Mass/Vol] 8.6 mg/dL Normal 8.5-10.2 [facility] Comment on above: Order Comment: Speci men Type: BLOOD SPECIMENOrdering Facility: [facility] Address: [address] [address] Performed By: #### 2 4321-2 ####[facility] LABORATORYCLIA [id number] [place] [address] [place] Chloride [Moles/Vol] 98 mmol/L Normal 97-105 [facility] Comment on above: Order Comment: Speci men Type: BLOOD SPECIMENOrdering Facility: [facility] Address: [address] [place] [address] Performed By: #### 2 4321-2 ####[facility] LABORATORYCLIA [id number] [place] [address] [place] CO2 [Moles/Vol] 28 mmol/L Normal 22-30 [facility] Comment on above: Order Comment: Speci men Type: BLOOD SPECIMENOrdering Facility: [facility] Address: [address] [place] [address] Performed By: #### 2 4321-2 ####[facility] LABORATORYCLIA [id number] [address] [place] [facility] Creatinine [Mass/Vol] 0.56 mg/dL Low 0.73-1.22 [facility] Comment on above: Order Comment: Speci men Type: BLOOD SPECIMENOrdering Facility: [facility] Address: [address] [place] [address] Performed By: #### 2 4321-2 ####[facility] LABORATORYCLIA [id number] [address] ESTIMATED GLOMERULAR FILTRATION RATE 107 mL/min/1.73m??? Normal >=60 [facility] Comment on above: Order Comment: Speci men Type: BLOOD SPECIMENOrdering Facility: [facility] Address: [address] [place] [address] Result Comment: Luzmaria mated Glomerular Filtration Rate [...] actual GFR. Performed By: #### 2 4321-2 ####[facility] LABORATORYCLIA [id number] [place] [address] [place] Glucose [Mass/Vol] 113 mg/dL High 74-99 [facility] Comment on above: Order Comment: Shira feldman Type: BLOOD SPECIMENOrdering Facility: [facility] Address: [address] [place] [address] Result Comment: The [place] [employer] (ADA) provides guidance for cutoff [...] Standards of Medical Care in Diabetes 2016, [place] [employer]. Diabetes Care. 2016.39(Suppl 1). Performed By: #### 2 4321-2 ####[facility] LABORATORYCLIA [id number] [place] [address] [place] Potassium [Moles/Vol] 3.5 mmol/L Low 3.7-5.1 [facility] Comment on above: Order Comment: Shira feldman Type: BLOOD SPECIMENOrdering Facility: [facility] Address: [address] [address] Performed By: #### 2 4321-2 ####[facility] LABORATORYCLIA [id number] [place] [address] [place] Sodium [Moles/Vol] 137 mmol/L Normal 136-144 [facility] Comment on above: Order Comment: Shira feldman Type: BLOOD SPECIMENOrdering Facility: [facility] Address: [address] [address] Performed By: #### 2 4321-2 ####[facility] LABORATORYCLIA [id number] [place] [address] [place] Urea nitrogen [Mass/Vol] 10 mg/dL Normal 9-24 [facility] Comment on above: Order Comment: Speci men Type: BLOOD SPECIMENOrdering Facility: [facility] Address: [address] [place] [address] Performed By: #### 2 4321-2 ####[facility] LABORATORYCLIA [id number] [address] [place] CBC W Auto Differential pane l (Bld)on 08-18-2021 Basophils (Bld) [#/Vol] 10*3/uL Normal <0.11 [facility] Comment on above: Order Comment: Speci men Type: BLOOD SPECIMENOrdering Facility: [facility] Address: [address] [place] [address] Performed By: #### 5 7021-8 ####[facility] LABORATORYCLIA [id number] [address] [place] Basophils/100 WBC (Bld) 0.3 % Normal [facility] Comment on above: Order Comment: Speci men Type: BLOOD SPECIMENOrdering Facility: [facility] Address: [address] [place] [address] Performed By: #### 5 7021-8 ####[facility] LABORATORYCLIA [id number] [address] Differential cell count method Nom (Bld) Auto Normal [facility] Comment on above: Order Comment: Speci men Type: BLOOD SPECIMENOrdering Facility: [facility] Address: [address] [place] [address] Performed By: #### 5 7021-8 ####[facility] LABORATORYCLIA [id number] [place] [address] [place] Eosinophils (Bld) [#/Vol] 0.37 10*3/uL Normal <0.46 [facility] Comment on above: Order Comment: Speci men Type: BLOOD SPECIMENOrdering Facility: [facility] Address: [address] [place] [address] Performed By: #### 5 7021-8 ####[facility] LABORATORYCLIA [id number] [address] Eosinophils/100 WBC (Bld) 4.8 % Normal [facility] Comment on above: Order Comment: Speci men Type: BLOOD SPECIMENOrdering Facility: [facility] Address: [address] [place] [address] Performed By: #### 5 7021-8 ####[facility] LABORATORYCLIA [id number] [address] Erythrocyte distribution width (RBC) [Ratio] 17.5 % High 11.5-15.0 [facility] Comment on above: Order Comment: Speci men Type: BLOOD SPECIMENOrdering Facility: [facility] Address: [address] [place] [address] Performed By: #### 5 7021-8 ####[facility] LABORATORYCLIA [id number] [address] Hematocrit (Bld) [Volume fraction] 30.2 % Low 39.0-51.0 [facility] Comment on above: Order Comment: Speci men Type: BLOOD SPECIMENOrdering Facility: [facility] Address: [address] [place] [address] Performed By: #### 5 7021-8 ####[facility] LABORATORYCLIA [id number] [address] [place] Hemoglobin (Bld) [Mass/Vol] 9.5 g/dL Low 13.0-17.0 [facility] Comment on above: Order Comment: Speci men Type: BLOOD SPECIMENOrdering Facility: [facility] Address: [address] [place] [address] Performed By: #### 5 7021-8 ####[facility] LABORATORYCLIA [id number] [address] [place] IMMATURE GRAN % 0.4 % Normal [facility] Comment on above: Order Comment: Speci men Type: BLOOD SPECIMENOrdering Facility: [facility] Address: [address] [place] [address] Performed By: #### 5 7021-8 ####[facility] LABORATORYCLIA [id number] [address] STATES OF [facility] IMMATURE GRAN ABS 0.03 k/uL Normal <0.10 [facility] Comment on above: Order Comment: Speci men Type: BLOOD SPECIMENOrdering Facility: [facility] Address: [address] [place] [address] Performed By: #### 5 7021-8 ####[facility] LABORATORYCLIA [id number] [address] Lymphocytes (Bld) [#/Vol] 1.85 10*3/uL Normal 1.00-4.00 [facility] Comment on above: Order Comment: Speci men Type: BLOOD SPECIMENOrdering Facility: [facility] Address: [address] [place] [address] Performed By: #### 5 7021-8 ####[facility] LABORATORYCLIA [id number] [address] Lymphocytes/100 WBC (Bld) 23.8 % Normal [facility] Comment on above: Order Comment: Speci men Type: BLOOD SPECIMENOrdering Facility: [facility] Address: [address] [place] [address] Performed By: #### 5 7021-8 ####[facility] LABORATORYCLIA [id number] [address] STATES [facility] MCH (RBC) [Entitic mass] 29.5 pg Normal 26.0-34.0 [facility] Comment on above: Order Comment: Speci men Type: BLOOD SPECIMENOrdering Facility: [facility] Address: [address] [place] [address] Performed By: #### 5 7021-8 ####[facility] LABORATORYCLIA [id number] [address] MCHC (RBC) [Mass/Vol] 31.5 g/dL Normal 30.5-36.0 [facility] Comment on above: Order Comment: Speci men Type: BLOOD SPECIMENOrdering Facility: [facility] Address: [address] [place] [address] Performed By: #### 5 7021-8 ####[facility] LABORATORYCLIA [id number] [address] [place] MCV (RBC) [Entitic vol] 93.8 fL Normal 80.0-100.0 [facility] Comment on above: Order Comment: Speci men Type: BLOOD SPECIMENOrdering Facility: [facility] Address: [address] [place] [address] Performed By: #### 5 7021-8 ####[facility] LABORATORYCLIA [id number] [address] [place] Monocytes (Bld) [#/Vol] 0.49 10*3/uL Normal <0.87 [facility] Comment on above: Order Comment: Speci men Type: BLOOD SPECIMENOrdering Facility: [facility] Address: [address] [place] [address] Performed By: #### 5 7021-8 ####[facility] LABORATORYCLIA [id number] [address] Monocytes/100 WBC (Bld) 6.3 % Normal [facility] Comment on above: Order Comment: Speci men Type: BLOOD SPECIMENOrdering Facility: [facility] Address: [address] [place] [address] Performed By: #### 5 7021-8 ####[facility] LABORATORYCLIA [id number] [address] [place] Neutrophils (Bld) [#/Vol] 5.00 10*3/uL Normal 1.45-7.50 [facility] Comment on above: Order Comment: Speci men Type: BLOOD SPECIMENOrdering Facility: [facility] Address: [address] [place] [address] Performed By: #### 5 7021-8 ####[facility] LABORATORYCLIA [id number] [address] Neutrophils/100 WBC (Bld) 64.4 % Normal [facility] Comment on above: Order Comment: Speci men Type: BLOOD SPECIMENOrdering Facility: [facility] Address: [address] [place] [address] Performed By: #### 5 7021-8 ####[facility]ORATORYCLIA [id number] [address] [place] Nucleated RBC (Bld) [#/Vol] 10*3/uL Normal <0.01 [facility] Comment on above: Order Comment: Speci men Type: BLOOD SPECIMENOrdering Facility: [facility] Address: [address] [place] [address] Performed By: #### 5 7021-8 ####[facility] LABORATORYCLIA [id number] [address] Nucleated RBC/100 WBC (Bld) [Ratio] 0.0 /100 WBC Normal [facility] Comment on above: Order Comment: Speci men Type: BLOOD SPECIMENOrdering Facility: [facility] Address: [address] [place] [address] Performed By: #### 5 7021-8 ####[facility] LABORATORYCLIA [id number] [address] [place] Platelet mean volume (Bld) [Entitic vol] 9.1 fL Normal 9.0-12.7 [facility] Comment on above: Order Comment: Speci men Type: BLOOD SPECIMENOrdering Facility: [facility] Address: [address] [place] [address] Performed By: #### 5 7021-8 ####[facility] LABORATORYCLIA [id number] [address] [place] Platelets (Bld) [#/Vol] 391 10*3/uL Normal 150-400 [facility] Comment on above: Order Comment: Speci men Type: BLOOD SPECIMENOrdering Facility: [facility] Address: [address] [place] [address] Performed By: #### 5 7021-8 ####[facility] LABORATORYCLIA [id number] [address] STATES OF [facility] RBC (Bld) [#/Vol] 3.22 10*6/uL Low 4.20-6.00 [facility] Comment on above: Order Comment: Speci men Type: BLOOD SPECIMENOrdering Facility: [facility] Address: [address] [place] [address] Performed By: #### 5 7021-8 ####[facility] LABORATORYCLIA [id number] [address] WBC (Bld) [#/Vol] 7.76 10*3/uL Normal 3.70-11.00 [facility] Comment on above: Order Comment: Speci men Type: BLOOD SPECIMENOrdering Facility: [facility] Address: [address] [place] [address] Performed By: #### 5 7021-8 ####[facility] LABORATORYCLIA [id number] [address] OF [facility] CONSULT PROGon 08-18-2021 CONSULT PROG Normal [facility] CASE MANAGEMon 08-17-2021 CASE MANAGEM Normal [facility] CBC W Auto Differential pane l (Bld)on 08-17-2021 Basophils (Bld) [#/Vol] 0.04 10*3/uL Normal <0.11 [facility] Comment on above: Order Comment: Speci men Type: BLOOD SPECIMENOrdering Facility: [facility] Address: [address] [place] [address] Performed By: #### 5 7021-8 ####[facility] LABORATORYCLIA [id number] [address] [place] Basophils/100 WBC (Bld) 0.5 % Normal [facility] Comment on above: Order Comment: Speci men Type: BLOOD SPECIMENOrdering Facility: [facility] Address: [address] [place] [address] Performed By: #### 5 7021-8 ####[facility] LABORATORYCLIA [id number] [address] Differential cell count method Nom (Bld) Auto Normal [facility] Comment on above: Order Comment: Speci men Type: BLOOD SPECIMENOrdering Facility: [facility] Address: [address] [place] [address] Performed By: #### 5 7021-8 ####[facility] LABORATORYCLIA [id number] [address] Eosinophils (Bld) [#/Vol] 0.31 10*3/uL Normal <0.46 [facility] Comment on above: Order Comment: Speci men Type: BLOOD SPECIMENOrdering Facility: [facility] Address: [address] [place] [address] Performed By: #### 5 7021-8 ####[facility] LABORATORYCLIA [id number] [address] Eosinophils/100 WBC (Bld) 3.7 % Normal [facility] Comment on above: Order Comment: Speci men Type: BLOOD SPECIMENOrdering Facility: [facility] Address: [address] [place] [address] Performed By: #### 5 7021-8 ####[facility] LABORATORYCLIA [id number] [address] Erythrocyte distribution width (RBC) [Ratio] 17.4 % High 11.5-15.0 [facility] Comment on above: Order Comment: Speci men Type: BLOOD SPECIMENOrdering Facility: [facility] Address: [address] [place] [address] Performed By: #### 5 7021-8 ####[facility] LABORATORYCLIA [id number] [address] Hematocrit (Bld) [Volume fraction] 30.6 % Low 39.0-51.0 [facility] Comment on above: Order Comment: Speci men Type: BLOOD SPECIMENOrdering Facility: [facility] Address: [address] [place] [address] Performed By: #### 5 7021-8 ####[facility] LABORATORYCLIA [id number] [address] [place] Hemoglobin (Bld) [Mass/Vol] 9.6 g/dL Low 13.0-17.0 [facility] Comment on above: Order Comment: Speci men Type: BLOOD SPECIMENOrdering Facility: [facility] Address: [address] [place] [address] Performed By: #### 5 7021-8 ####[facility] LABORATORYCLIA [id number] [address] OF [facility] IMMATURE GRAN % 0.2 % Normal [facility] Comment on above: Order Comment: Speci men Type: BLOOD SPECIMENOrdering Facility: [facility] Address: [address] [place] [address] Performed By: #### 5 7021-8 ####[facility] LABORATORYCLIA [id number] [address] IMMATURE GRAN ABS <0.03 Normal <0.10 [facility] Comment on above: Order Comment: Speci men Type: BLOOD SPECIMENOrdering Facility: [facility] Address: [address] [place] [address] Performed By: #### 5 7021-8 ####[facility] LABORATORYCLIA [id number] [address] [place] Lymphocytes (Bld) [#/Vol] 1.66 10*3/uL Normal 1.00-4.00 [facility] Comment on above: Order Comment: Speci men Type: BLOOD SPECIMENOrdering Facility: [facility] Address: [address] [place] [address] Performed By: #### 5 7021-8 ####[facility] LABORATORYCLIA [id number] [address] Lymphocytes/100 WBC (Bld) 19.9 % Normal [facility] Comment on above: Order Comment: Speci men Type: BLOOD SPECIMENOrdering Facility: [facility] Address: [address] [place] [address] Performed By: #### 5 7021-8 ####[facility] LABORATORYCLIA [id number] [address] MCH (RBC) [Entitic mass] 28.9 pg Normal 26.0-34.0 [facility] Comment on above: Order Comment: Speci men Type: BLOOD SPECIMENOrdering Facility: [facility] Address: [address] [place] [address] Performed By: #### 5 7021-8 ####[facility] LABORATORYCLIA [id number] [address] STATES [place] [facility] MCHC (RBC) [Mass/Vol] 31.4 g/dL Normal 30.5-36.0 [facility] Comment on above: Order Comment: Speci men Type: BLOOD SPECIMENOrdering Facility: [facility] Address: [address] [place] [address] Performed By: #### 5 7021-8 ####[facility] LABORATORYCLIA [id number] [address] STATES [facility] MCV (RBC) [Entitic vol] 92.2 fL Normal 80.0-100.0 [facility] Comment on above: Order Comment: Speci men Type: BLOOD SPECIMENOrdering Facility: [facility] Address: [address] [place] [address] Performed By: #### 5 7021-8 ####[facility] LABORATORYCLIA [id number] [address] Monocytes (Bld) [#/Vol] 0.52 10*3/uL Normal <0.87 [facility] Comment on above: Order Comment: Speci men Type: BLOOD SPECIMENOrdering Facility: [facility] Address: [address] [place] [address] Performed By: #### 5 7021-8 ####[facility]ORATORYCLIA [id number] [address] [place] Monocytes/100 WBC (Bld) 6.2 % Normal [facility] Comment on above: Order Comment: Speci men Type: BLOOD SPECIMENOrdering Facility: [facility] Address: [address] [place] [address] Performed By: #### 5 7021-8 ####[facility] LABORATORYCLIA [id number] [address] [place] Neutrophils (Bld) [#/Vol] 5.78 10*3/uL Normal 1.45-7.50 [facility] Comment on above: Order Comment: Speci men Type: BLOOD SPECIMENOrdering Facility: [facility] Address: [address] [place] [address] Performed By: #### 5 7021-8 ####[facility] LABORATORYCLIA [id number] [address] [place] Neutrophils/100 WBC (Bld) 69.5 % Normal [facility] Comment on above: Order Comment: Speci men Type: BLOOD SPECIMENOrdering Facility: [facility] Address: [address] [place] [address] Performed By: #### 5 7021-8 ####[facility]ORATORYCLIA [id number] [address] [place] Nucleated RBC (Bld) [#/Vol] 10*3/uL Normal <0.01 [facility] Comment on above: Order Comment: Speci men Type: BLOOD SPECIMENOrdering Facility: [facility] Address: [address] [place] [address] Performed By: #### 5 7021-8 ####[facility]ORATORYCLIA [id number] [address] [place] Nucleated RBC/100 WBC (Bld) [Ratio] 0.0 /100 WBC Normal [facility] Comment on above: Order Comment: Speci men Type: BLOOD SPECIMENOrdering Facility: [facility] Address: [address] [place] [address] Performed By: #### 5 7021-8 ####[facility] LABORATORYCLIA [id number] [address] [place] [facility] Platelet mean volume (Bld) [Entitic vol] 9.2 fL Normal 9.0-12.7 [facility] Comment on above: Order Comment: Speci men Type: BLOOD SPECIMENOrdering Facility: [facility] Address: [address] [place] [address] Performed By: #### 5 7021-8 ####[facility] LABORATORYCLIA [id number] [address] [place] Platelets (Bld) [#/Vol] 379 10*3/uL Normal 150-400 [facility] Comment on above: Order Comment: Speci men Type: BLOOD SPECIMENOrdering Facility: [facility] Address: [address] [place] [address] Performed By: #### 5 7021-8 ####[facility] LABORATORYCLIA [id number] [place] [address] [place] RBC (Bld) [#/Vol] 3.32 10*6/uL Low 4.20-6.00 [facility] Comment on above: Order Comment: Speci men Type: BLOOD SPECIMENOrdering Facility: [facility] Address: [address] [place], [place] [address] Performed By: #### 5 7021-8 ####[facility] LABORATORYCLIA [id number] [address] [place] WBC (Bld) [#/Vol] 8.33 10*3/uL Normal 3.70-11.00 [facility] Comment on above: Order Comment: Speci men Type: BLOOD SPECIMENOrdering Facility: [facility] Address: [address] [place] [address] Performed By: #### 5 7021-8 ####[facility] LABORATORYCLIA [id number] [place] [address] [place] CONSULT PROGon 08-17-2021 CONSULT PROG Normal [facility] NUTRITIONon 08-17-2021 NUTRITION Normal [facility] Basic metabolic 2000 panelon 08-16-2021 Anion gap [Moles/Vol] 14 mmol/L Normal 9-18 [facility] Comment on above: Order Comment: Speci men Type: BLOOD SPECIMENOrdering Facility: [facility] Address: [address] [place] [address] Performed By: #### 2 4321-2, ####[facility] LABORATORYCLIA [id number] [place] [address] [place] Calcium [Mass/Vol] 8.8 mg/dL Normal 8.5-10.2 [facility] Comment on above: Order Comment: Speci men Type: BLOOD SPECIMENOrdering Facility: [facility] Address: [address] [place] [address] Performed By: #### 2 2, ####[facility] LABORATORYCLIA [id number] [place] [address] [place] Chloride [Moles/Vol] 97 mmol/L Normal 97-105 [facility] Comment on above: Order Comment: Speci men Type: BLOOD SPECIMENOrdering Facility: [facility] Address: [address] [place] [address] Performed By: #### 2 2, ####[facility] LABORATORYCLIA [id number] [place] [address] [place] CO2 [Moles/Vol] 27 mmol/L Normal 22-30 [facility] Comment on above: Order Comment: Speci men Type: BLOOD SPECIMENOrdering Facility: [facility] Address: [address] [place] [address] Performed By: #### 2 4320-2, ####[facility] LABORATORYCLIA [id number] [place] [address] [place] Creatinine [Mass/Vol] 0.50 mg/dL Low 0.73-1.22 [facility] Comment on above: Order Comment: Shira feldman Type: BLOOD SPECIMENOrdering Facility: [facility] Address: [address] [phone] Performed By: #### 2 4321-2, ####[facility] LABORATORYCLIA [id number] [place] [id number] [facility] ESTIMATED GLOMERULAR FILTRATION RATE 110 mL/min/1.73m??? Normal >=60 [facility] Comment on above: Order Comment: Shira feldman Type: BLOOD SPECIMENOrdering Facility: [facility] Address: [address] [place] [address] Result Comment: Luzmaria mated Glomerular Filtration Rate [...] actual GFR. Performed By: #### 2 4321-2, ####[facility] LABORATORYCLIA [id number] [address] STATES [facility] Glucose [Mass/Vol] 101 mg/dL High 74-99 [facility] Comment on above: Order Comment: Shira feldman Type: BLOOD SPECIMENOrdering Facility: [facility] Address: [address] [place] [address] Result Comment: The [place] [employer] (ADA) provides guidance for cutoff [...] Standards of Medical Care in Diabetes 2016, [place] [employer]. Diabetes Care. 2016.39(Suppl 1). Performed By: #### 2 432-2, ####[facility] LABORATORYCLIA [id number] [address] [place] Potassium [Moles/Vol] 3.6 mmol/L Low 3.7-5.1 [facility] Comment on above: Order Comment: Speci men Type: BLOOD SPECIMENOrdering Facility: [facility] Address: [address] [address] Performed By: #### 2 432-2, ####[facility] LABORATORYCLIA [id number] [address] STATES [facility] Sodium [Moles/Vol] 138 mmol/L Normal 136-144 [facility] Comment on above: Order Comment: Speci men Type: BLOOD SPECIMENOrdering Facility: [facility] Address: [address] [place] [address] Performed By: #### 2 43205-08, ####[facility] LABORATORYCLIA [id number] [address] [place] [facility] Urea nitrogen [Mass/Vol] 11 mg/dL Normal 9-24 [facility] Comment on above: Order Comment: Speci men Type: BLOOD SPECIMENOrdering Facility: [facility] Address: [address] [place] [address] Performed By: #### 2 4320-06, ####[facility] LABORATORYCLIA [id number] [address] [place] CASE MANAGEMon 08-16-2021 CASE MANAGEM Normal [facility] CBC W Auto Differential pane l (Bld)on 08-16-2021 Basophils (Bld) [#/Vol] 0.03 10*3/uL Normal <0.11 [facility] Comment on above: Order Comment: Speci men Type: BLOOD SPECIMENOrdering Facility: [facility] Address: [address] [address] Performed By: #### 5 7021-8 ####[facility]ORATORYCLIA [id number] [address] Basophils/100 WBC (Bld) 0.4 % Normal [facility] Comment on above: Order Comment: Speci men Type: BLOOD SPECIMENOrdering Facility: [facility] Address: [address] [place] [address] Performed By: #### 5 7021-8 ####[facility] LABORATORYCLIA [id number] [address] Differential cell count method Nom (Bld) Auto Normal [facility] Comment on above: Order Comment: Speci men Type: BLOOD SPECIMENOrdering Facility: [facility] Address: [address] [place] [address] Performed By: #### 5 7021-8 ####[facility] LABORATORYCLIA [id number] [address] [place] Eosinophils (Bld) [#/Vol] 0.19 10*3/uL Normal <0.46 [facility] Comment on above: Order Comment: Speci men Type: BLOOD SPECIMENOrdering Facility: [facility] Address: [address] [place] [address] Performed By: #### 5 7021-8 ####[facility] LABORATORYCLIA [id number] [address] Eosinophils/100 WBC (Bld) 2.5 % Normal [facility] Comment on above: Order Comment: Speci men Type: BLOOD SPECIMENOrdering Facility: [facility] Address: [address] [place] [address] Performed By: #### 5 7021-8 ####[facility] LABORATORYCLIA [id number] [address] Erythrocyte distribution width (RBC) [Ratio] 17.1 % High 11.5-15.0 [facility] Comment on above: Order Comment: Speci men Type: BLOOD SPECIMENOrdering Facility: [facility] Address: [address] [place] [address] Performed By: #### 5 7021-8 ####[facility] LABORATORYCLIA [id number] [address] Hematocrit (Bld) [Volume fraction] 29.2 % Low 39.0-51.0 [facility] Comment on above: Order Comment: Speci men Type: BLOOD SPECIMENOrdering Facility: [facility] Address: [address] [place] [address] Performed By: #### 5 7021-8 ####[facility] LABORATORYCLIA [id number] [address] Hemoglobin (Bld) [Mass/Vol] 9.0 g/dL Low 13.0-17.0 [facility] Comment on above: Order Comment: Speci men Type: BLOOD SPECIMENOrdering Facility: [facility] Address: [address] [place] [address] Performed By: #### 5 7021-8 ####[facility] LABORATORYCLIA [id number] [address] IMMATURE GRAN % 0.3 % Normal [facility] Comment on above: Order Comment: Speci men Type: BLOOD SPECIMENOrdering Facility: [facility] Address: [address] [place] [address] Performed By: #### 5 7021-8 ####[facility] LABORATORYCLIA [id number] [address] IMMATURE GRAN ABS <0.03 Normal <0.10 [facility] Comment on above: Order Comment: Speci men Type: BLOOD SPECIMENOrdering Facility: [facility] Address: [address] [place] [address] Performed By: #### 5 7021-8 ####[facility] LABORATORYCLIA [id number] [address] OF [facility] Lymphocytes (Bld) [#/Vol] 1.41 10*3/uL Normal 1.00-4.00 [facility] Comment on above: Order Comment: Speci men Type: BLOOD SPECIMENOrdering Facility: [facility] Address: [address] [place] [address] Performed By: #### 5 7021-8 ####[facility] LABORATORYCLIA [id number] [address] Lymphocytes/100 WBC (Bld) 18.4 % Normal [facility] Comment on above: Order Comment: Speci men Type: BLOOD SPECIMENOrdering Facility: [facility] Address: [address] [place] [address] Performed By: #### 5 7021-8 ####[facility] LABORATORYCLIA [id number] [address] [place] [facility] MCH (RBC) [Entitic mass] 28.0 pg Normal 26.0-34.0 [facility] Comment on above: Order Comment: Speci men Type: BLOOD SPECIMENOrdering Facility: [facility] Address: [address] [place] [address] Performed By: #### 5 7021-8 ####[facility] LABORATORYCLIA [id number] [address] [facility] (RBC) [Mass/Vol] 30.8 g/dL Normal 30.5-36.0 [facility] Comment on above: Order Comment: Speci men Type: BLOOD SPECIMENOrdering Facility: [facility] Address: [address] [place] [place] [address] Performed By: #### 5 7021-8 ####[facility] LABORATORYCLIA [id number] [address] STATES [facility] MCV (RBC) [Entitic vol] 91.0 fL Normal 80.0-100.0 [facility] Comment on above: Order Comment: Speci men Type: BLOOD SPECIMENOrdering Facility: [facility] Address: [address] [place] [address] Performed By: #### 5 7021-8 ####[facility] LABORATORYCLIA [id number] [place] [address] [place] Monocytes (Bld) [#/Vol] 0.47 10*3/uL Normal <0.87 [facility] Comment on above: Order Comment: Speci men Type: BLOOD SPECIMENOrdering Facility: [facility] Address: [address] [address] Performed By: #### 5 7021-8 ####[facility] LABORATORYCLIA [id number] [place] [address] [place] Monocytes/100 WBC (Bld) 6.1 % Normal [facility] Comment on above: Order Comment: Speci men Type: BLOOD SPECIMENOrdering Facility: [facility] Address: [address] [place] [address] Performed By: #### 5 7021-8 ####[facility] LABORATORYCLIA [id number] [place] [address] [place] Neutrophils (Bld) [#/Vol] 5.55 10*3/uL Normal 1.45-7.50 [facility] Comment on above: Order Comment: Speci men Type: BLOOD SPECIMENOrdering Facility: [facility] Address: [address] [place] [address] Performed By: #### 5 7021-8 ####[facility] LABORATORYCLIA [id number] [address] [place] Neutrophils/100 WBC (Bld) 72.3 % Normal [facility] Comment on above: Order Comment: Speci men Type: BLOOD SPECIMENOrdering Facility: [facility] Address: [address] [address] Performed By: #### 5 7021-8 ####[facility] LABORATORYCLIA [id number] [place] [address] [place] Nucleated RBC (Bld) [#/Vol] 10*3/uL Normal <0.01 [facility] Comment on above: Order Comment: Speci men Type: BLOOD SPECIMENOrdering Facility: [facility] Address: [address] [place] [address] Performed By: #### 5 7021-8 ####[facility] LABORATORYCLIA [id number] [address] Nucleated RBC/100 WBC (Bld) [Ratio] 0.0 /100 WBC Normal [facility] Comment on above: Order Comment: Speci men Type: BLOOD SPECIMENOrdering Facility: [facility] Address: [address] [place] [address] Performed By: #### 5 7021-8 ####[facility] LABORATORYCLIA [id number] [address] [place] Platelet mean volume (Bld) [Entitic vol] 9.3 fL Normal 9.0-12.7 [facility] Comment on above: Order Comment: Speci men Type: BLOOD SPECIMENOrdering Facility: [facility] Address: [address] [place] [address] Performed By: #### 5 7021-8 ####[facility] LABORATORYCLIA [id number] [address] [place] Platelets (Bld) [#/Vol] 319 10*3/uL Normal 150-400 [facility] Comment on above: Order Comment: Speci men Type: BLOOD SPECIMENOrdering Facility: [facility] Address: [address] [place] [address] Performed By: #### 5 7021-8 ####[facility] LABORATORYCLIA [id number] [address] [place] RBC (Bld) [#/Vol] 3.21 10*6/uL Low 4.20-6.00 [facility] Comment on above: Order Comment: Speci men Type: BLOOD SPECIMENOrdering Facility: [facility] Address: [address] [place] [address] Performed By: #### 5 7021-8 ####[facility] LABORATORYCLIA [id number] [address] [place] WBC (Bld) [#/Vol] 7.67 10*3/uL Normal 3.70-11.00 [facility] Comment on above: Order Comment: Speci men Type: BLOOD SPECIMENOrdering Facility: [facility] Address: [facility] [address] Performed By: #### 5 7021-8 ####[facility] LABORATORYCLIA [id number] [place] [address] [place] Basophils (Bld) [#/Vol] 0.04 10*3/uL Normal <0.11 [facility] Comment on above: Order Comment: Speci men Type: BLOOD SPECIMENOrdering Facility: [facility] Address: [address] [place] [address] Performed By: #### 5 7021-8 ####[facility] LABORATORYCLIA [id number] [place] [address] [place] Basophils/100 WBC (Bld) 0.5 % Normal [facility] Comment on above: Order Comment: Speci men Type: BLOOD SPECIMENOrdering Facility: [facility] Address: [address] [place] [address] Performed By: #### 5 7021-8 ####[facility] LABORATORYCLIA [id number] [address] [place] Differential cell count method Nom (Bld) Auto Normal [facility] Comment on above: Order Comment: Speci men Type: BLOOD SPECIMENOrdering Facility: [facility] Address: [address] [place] [address] Performed By: #### 5 7021-8 ####[facility]ORATORYCLIA [id number] [place] [address] [place] Eosinophils (Bld) [#/Vol] 0.19 10*3/uL Normal <0.46 [facility] Comment on above: Order Comment: Speci men Type: BLOOD SPECIMENOrdering Facility: [facility] Address: [address] [place] [address] Performed By: #### 5 7021-8 ####[facility]ORATORYCLIA [id number] [address] Eosinophils/100 WBC (Bld) 2.5 % Normal [facility] Comment on above: Order Comment: Speci men Type: BLOOD SPECIMENOrdering Facility: [facility] Address: [address] [place] [address] Performed By: #### 5 7021-8 ####[facility] LABORATORYCLIA [id number] [address] Erythrocyte distribution width (RBC) [Ratio] 17.2 % High 11.5-15.0 [facility] Comment on above: Order Comment: Speci men Type: BLOOD SPECIMENOrdering Facility: [facility] Address: [address] [place] [address] Performed By: #### 5 7021-8 ####[facility] LABORATORYCLIA [id number] [address] Hematocrit (Bld) [Volume fraction] 29.5 % Low 39.0-51.0 [facility] Comment on above: Order Comment: Speci men Type: BLOOD SPECIMENOrdering Facility: [facility] Address: [address] [place] [address] Performed By: #### 5 7021-8 ####[facility] LABORATORYCLIA [id number] [address] [place] Hemoglobin (Bld) [Mass/Vol] 9.2 g/dL Low 13.0-17.0 [facility] Comment on above: Order Comment: Speci men Type: BLOOD SPECIMENOrdering Facility: [facility] Address: [address] [place] [address] Performed By: #### 5 7021-8 ####[facility] LABORATORYCLIA [id number] [address] IMMATURE GRAN % 0.4 % Normal [facility] Comment on above: Order Comment: Speci men Type: BLOOD SPECIMENOrdering Facility: [facility] Address: [address] [place] [address] Performed By: #### 5 7021-8 ####[facility] LABORATORYCLIA [id number] [address] IMMATURE GRAN ABS 0.03 k/uL Normal <0.10 [facility] Comment on above: Order Comment: Speci men Type: BLOOD SPECIMENOrdering Facility: [facility] Address: [address] [place] [address] Performed By: #### 5 7021-8 ####[facility] LABORATORYCLIA [id number] [address] Lymphocytes (Bld) [#/Vol] 1.50 10*3/uL Normal 1.00-4.00 [facility] Comment on above: Order Comment: Speci men Type: BLOOD SPECIMENOrdering Facility: [facility] Address: [address] [place] [address] Performed By: #### 5 7021-8 ####[facility] LABORATORYCLIA [id number] [address] Lymphocytes/100 WBC (Bld) 19.7 % Normal [facility] Comment on above: Order Comment: Speci men Type: BLOOD SPECIMENOrdering Facility: [facility] Address: [address] [place] [address] Performed By: #### 5 7021-8 ####[facility] LABORATORYCLIA [id number] [address] MCH (RBC) [Entitic mass] 28.3 pg Normal 26.0-34.0 [facility] Comment on above: Order Comment: Speci men Type: BLOOD SPECIMENOrdering Facility: [facility] Address: [address] [place] [address] Performed By: #### 5 7021-8 ####[facility] LABORATORYCLIA [id number] [address] MCHC (RBC) [Mass/Vol] 31.2 g/dL Normal 30.5-36.0 [facility] Comment on above: Order Comment: Speci men Type: BLOOD SPECIMENOrdering Facility: [facility] Address: [address] [address] Performed By: #### 5 7021-8 ####[facility] LABORATORYCLIA [id number] [address] [place] MCV (RBC) [Entitic vol] 90.8 fL Normal 80.0-100.0 [facility] Comment on above: Order Comment: Speci men Type: BLOOD SPECIMENOrdering Facility: [facility] Address: [address] [place] [address] Performed By: #### 5 7021-8 ####[facility] LABORATORYCLIA [id number] [address] [place] Monocytes (Bld) [#/Vol] 0.49 10*3/uL Normal <0.87 [facility] Comment on above: Order Comment: Speci men Type: BLOOD SPECIMENOrdering Facility: [facility] Address: [address] [place] [address] Performed By: #### 5 7021-8 ####[facility] LABORATORYCLIA [id number] [address] STATES [facility] Monocytes/100 WBC (Bld) 6.4 % Normal [facility] Comment on above: Order Comment: Speci men Type: BLOOD SPECIMENOrdering Facility: [facility] Address: [address] [place] [address] Performed By: #### 5 7021-8 ####[facility] LABORATORYCLIA [id number] [address] [place] Neutrophils (Bld) [#/Vol] 5.38 10*3/uL Normal 1.45-7.50 [facility] Comment on above: Order Comment: Speci men Type: BLOOD SPECIMENOrdering Facility: [facility] Address: [address] [place] [address] Performed By: #### 5 7021-8 ####[facility] LABORATORYCLIA [id number] [address] [place] Neutrophils/100 WBC (Bld) 70.5 % Normal [facility] Comment on above: Order Comment: Speci men Type: BLOOD SPECIMENOrdering Facility: [facility] Address: [address] [address] Performed By: #### 5 7021-8 ####[facility] LABORATORYCLIA [id number] [address] [place] Nucleated RBC (Bld) [#/Vol] 10*3/uL Normal <0.01 [facility] Comment on above: Order Comment: Speci men Type: BLOOD SPECIMENOrdering Facility: [facility] Address: [address] [place] [address] Performed By: #### 5 7021-8 ####[facility] LABORATORYCLIA [id number] [address] [place] Nucleated RBC/100 WBC (Bld) [Ratio] 0.0 /100 WBC Normal [facility] Comment on above: Order Comment: Speci men Type: BLOOD SPECIMENOrdering Facility: [facility] Address: [address] [place] [address] Performed By: #### 5 7021-8 ####[facility] LABORATORYCLIA [id number] [address] [place] Platelet mean volume (Bld) [Entitic vol] 9.0 fL Normal 9.0-12.7 [facility] Comment on above: Order Comment: Speci men Type: BLOOD SPECIMENOrdering Facility: [facility] Address: [address] Performed By: #### 5 7021-8 ####[facility] LABORATORYCLIA [id number] [address] [place] Platelets (Bld) [#/Vol] 316 10*3/uL Normal 150-400 [facility] Comment on above: Order Comment: Speci men Type: BLOOD SPECIMENOrdering Facility: [facility] Address: [facility] [address] Performed By: #### 5 7021-8 ####[facility] LABORATORYCLIA [id number] [place] [address] [place] RBC (Bld) [#/Vol] 3.25 10*6/uL Low 4.20-6.00 [facility] Comment on above: Order Comment: Speci men Type: BLOOD SPECIMENOrdering Facility: [facility] Address: [address] [place] [address] Performed By: #### 5 7021-8 ####[facility] LABORATORYCLIA [id number] [place] [address] [place] WBC (Bld) [#/Vol] 7.63 10*3/uL Normal 3.70-11.00 [facility] Comment on above: Order Comment: Speci men Type: BLOOD SPECIMENOrdering Facility: [facility] Address: [address] [place] [address] Performed By: #### 5 7021-8 ####[facility] LABORATORYCLIA [id number] [address] [place] Basophils (Bld) [#/Vol] Normal <0.11 [facility] Comment on above: Order Comment: Speci men Type: BLOOD SPECIMENOrdering Facility: [facility] Address: [address] [place] [address] Result Comment: Carolina Owens RN informed lab after results autoverified that she rd on the wrong patient. Lab to credit. Nurse to redraw on correct patient.Corrected result: Previously reported as 0.04 k/uL on 08/16/2021 at 4:44 AM EDT. Performed By: #### 5 7021-8 ####[facility] LABORATORYCLIA [id number] [address] [place] Basophils/100 WBC (Bld) Normal [facility] Comment on above: Order Comment: Speci men Type: BLOOD SPECIMENOrdering Facility: [facility] Address: [address] [place] [address] Result Comment: Tati ected result: Previously reported as 0.4 % on 08/16/2021 at 4:44 AM EDT. Performed By: #### 5 7021-8 ####[facility]ORATORYCLIA [id number] [address] CBC W Differential panel, method unspecified (Bld) Normal [facility] Comment on above: Order Comment: Speci men Type: BLOOD SPECIMENOrdering Facility: [facility] Address: [address] [place] [address] Result Comment: Carolina Owens RN informed lab after results autoverified that she rd on the wrong patient. Lab to credit. Nurse to redraw on correct patient. Performed By: #### 5 7021-8 ####[facility] LABORATORYCLIA [id number] [address] Differential cell count method Nom (Bld) Normal [facility] Comment on above: Order Comment: Speci men Type: BLOOD SPECIMENOrdering Facility: [facility] Address: [address] [place] [address] Result Comment: Carolina Owens RN informed lab after results autoverified that she rd on the wrong patient. Lab to credit. Nurse to redraw on correct patient.Corrected result: Previously reported as Auto on 08/16/2021 at 4:44 AM EDT. Performed By: #### 5 7021-8 ####[facility]ORATORYCLIA [id number] [address] Eosinophils (Bld) [#/Vol] Normal <0.46 [facility] Comment on above: Order Comment: Speci men Type: BLOOD SPECIMENOrdering Facility: [facility] Address: [address] [place] [address] Result Comment: Carolina Owens RN informed lab after results autoverified that she rd on the wrong patient. Lab to credit. Nurse to redraw on correct patient.Corrected result: Previously reported as 0.07 k/uL on 08/16/2021 at 4:44 AM EDT. Performed By: #### 5 7021-8 ####[facility]ORATORYCLIA [id number] [address] [place] Eosinophils/100 WBC (Bld) Normal [facility] Comment on above: Order Comment: Speci men Type: BLOOD SPECIMENOrdering Facility: [facility] Address: [address] [place] [address] Result Comment: Carolina Owens RN informed lab after results autoverified that she rd on the wrong patient. Lab to credit. Nurse to redraw on correct patient.Corrected result: Previously reported as 0.7 % on 08/16/2021 at 4:44 AM EDT. Performed By: #### 5 7021-8 ####[facility] LABORATORYCLIA [id number] [address] Erythrocyte distribution width (RBC) [Ratio] Normal 11.5-15.0 [facility] Comment on above: Order Comment: Speci men Type: BLOOD SPECIMENOrdering Facility: [facility] Address: [address] [place] [address] Result Comment: Carolina Owens RN informed lab after results autoverified that she rd on the wrong patient. Lab to credit. Nurse to redraw on correct patient.Corrected result: Previously reported as 14.2 % on 08/16/2021 at 4:44 AM EDT. Performed By: #### 5 7021-8 ####[facility] LABORATORYCLIA [id number] [address] [facility] Hematocrit (Bld) [Volume fraction] Normal 39.0-51.0 [facility] Comment on above: Order Comment: Speci men Type: BLOOD SPECIMENOrdering Facility: [facility] Address: [address] [place] [address] Result Comment: Carolina Owens RN informed lab after results autoverified that she rd on the wrong patient. Lab to credit. Nurse to redraw on correct patient.Corrected result: Previously reported as 34.3 % on 08/16/2021 at 4:44 AM EDT. Performed By: #### 5 7021-8 ####[facility] LABORATORYCLIA [id number] [address] Hemoglobin (Bld) [Mass/Vol] Normal 13.0-17.0 [facility] Comment on above: Order Comment: Speccara feldman Type: BLOOD SPECIMENOrdering Facility: [facility] Address: [address] [place] [address] Result Comment: Carolina Owens RN informed lab after results autoverified that she rd on the wrong patient. Lab to credit. Nurse to redraw on correct patient.Corrected result: Previously reported as 11.2 g/dL on 08/16/2021 at 4:44 AM EDT. Performed By: #### 5 7021-8 ####[facility] LABORATORYCLIA [id number] [address] IMMATURE GRAN % Normal [facility] Comment on above: Order Comment: Shira feldman Type: BLOOD SPECIMENOrdering Facility: [facility] Address: [address] [place] [address] Result Comment: Carolina Owens RN informed lab after results autoverified that she rd on the wrong patient. Lab to credit. Nurse to redraw on correct patient.Corrected result: Previously reported as 0.8 % on 08/16/2021 at 4:44 AM EDT. Performed By: #### 5 7021-8 ####[facility] LABORATORYCLIA [id number] [address] IMMATURE GRAN ABS Normal <0.10 [facility] Comment on above: Order Comment: Speci francia Type: BLOOD SPECIMENOrdering Facility: [facility] Address: [address] [place] [address] Result Comment: Tati ected result: Previously reported as 0.08 k/uL on 08/16/2021 at 4:44 AM EDT. Performed By: #### 5 7021-8 ####[facility] LABORATORYCLIA [id number] [address] [facility] Lymphocytes (Bld) [#/Vol] Normal 1.00-4.00 [facility] Comment on above: Order Comment: Speci francia Type: BLOOD SPECIMENOrdering Facility: [facility] Address: [address] [place] [address] Result Comment: Carolina Owens RN informed lab after results autoverified that she rd on the wrong patient. Lab to credit. Nurse to redraw on correct patient.Corrected result: Previously reported as 1.17 k/uL on 08/16/2021 at 4:44 AM EDT. Performed By: #### 5 7021-8 ####[facility] LABORATORYCLIA [id number] [address] Lymphocytes/100 WBC (Bld) Normal [facility] Comment on above: Order Comment: Speci men Type: BLOOD SPECIMENOrdering Facility: [facility] Address: [address] [place] [address] Result Comment: Carolina Owens RN informed lab after results autoverified that she rd on the wrong patient. Lab to credit. Nurse to redraw on correct patient.Corrected result: Previously reported as 12.0 % on 08/16/2021 at 4:44 AM EDT. Performed By: #### 5 7021-8 ####[facility] LABORATORYCLIA [id number] [address] STATES [facility] MCHC (RBC) [Mass/Vol] Normal 30.5-36.0 [facility] Comment on above: Order Comment: Speci men Type: BLOOD SPECIMENOrdering Facility: [facility] Address: [address] [place] [address] Result Comment: Carolina Owens RN informed lab after results autoverified that she rd on the wrong patient. Lab to credit. Nurse to redraw on correct patient.Corrected result: Previously reported as 32.7 g/dL on 08/16/2021 at 4:44 AM EDT. Performed By: #### 5 7021-8 ####[facility] LABORATORYCLIA [id number] [address] [place] [facility] MCV (RBC) [Entitic vol] Normal 80.0-100.0 [facility] Comment on above: Order Comment: Speci men Type: BLOOD SPECIMENOrdering Facility: [facility] Address: [address] [place] [address] Result Comment: Carolina Owens RN informed lab after results autoverified that she rd on the wrong patient. Lab to credit. Nurse to redraw on correct patient.Corrected result: Previously reported as 94.2 fL on 08/16/2021 at 4:44 AM EDT. Performed By: #### 5 7021-8 ####[facility] LABORATORYCLIA [id number] [place] [address] [place] Monocytes (Bld) [#/Vol] Normal <0.87 [facility] Comment on above: Order Comment: Speci men Type: BLOOD SPECIMENOrdering Facility: [facility] Address: [address] [place] [address] Result Comment: Carolina Owens RN informed lab after results autoverified that she rd on the wrong patient. Lab to credit. Nurse to redraw on correct patient.Corrected result: Previously reported as 0.99 k/uL on 08/16/2021 at 4:44 AM EDT. Performed By: #### 5 7021-8 ####[facility] LABORATORYCLIA [id number] [address] [place] Monocytes/100 WBC (Bld) Normal [facility] Comment on above: Order Comment: Speci men Type: BLOOD SPECIMENOrdering Facility: [facility] Address: [address] [place] [address] Result Comment: Carolina wOens RN informed lab after results autoverified that she rd on the wrong patient. Lab to credit. Nurse to redraw on correct patient.Corrected result: Previously reported as 10.2 % on 08/16/2021 at 4:44 AM EDT. Performed By: #### 5 7021-8 ####[facility] LABORATORYCLIA [id number] [address] [place] Neutrophils (Bld) [#/Vol] Normal 1.45-7.50 [facility] Comment on above: Order Comment: Speci men Type: BLOOD SPECIMENOrdering Facility: [facility] Address: [address] [place] [address] Result Comment: Carolina Owens RN informed lab after results autoverified that she rd on the wrong patient. Lab to credit. Nurse to redraw on correct patient.Corrected result: Previously reported as 7.40 k/uL on 08/16/2021 at 4:44 AM EDT. Performed By: #### 5 7021-8 ####[facility] LABORATORYCLIA [id number] [place] [address] [place] Neutrophils/100 WBC (Bld) Normal [facility] Comment on above: Order Comment: Speci men Type: BLOOD SPECIMENOrdering Facility: [facility] Address: [address] [place] [address] Result Comment: Carolina Owens RN informed lab after results autoverified that she rd on the wrong patient. Lab to credit. Nurse to redraw on correct patient.Corrected result: Previously reported as 75.9 % on 08/16/2021 at 4:44 AM EDT. Performed By: #### 5 7021-8 ####[facility] LABORATORYCLIA [id number] [place] [address] [place] Platelet mean volume (Bld) [Entitic vol] Normal 9.0-12.7 [facility] Comment on above: Order Comment: Speci men Type: BLOOD SPECIMENOrdering Facility: [facility] Address: [address] [place] [address] Result Comment: Carolina Owens RN informed lab after results autoverified that she rd on the wrong patient. Lab to credit. Nurse to redraw on correct patient.Corrected result: Previously reported as 9.1 fL on 08/16/2021 at 4:44 AM EDT. Performed By: #### 5 7021-8 ####[facility] LABORATORYCLIA [id number] [address] [place] Platelets (Bld) [#/Vol] Normal 150-400 [facility] Comment on above: Order Comment: Speci men Type: BLOOD SPECIMENOrdering Facility: [facility] Address: [address] [place] [address] Result Comment: Carolina Owens RN informed lab after results autoverified that she rd on the wrong patient. Lab to credit. Nurse to redraw on correct patient.Corrected result: Previously reported as 338 k/uL on 08/16/2021 at 4:44 AM EDT. Performed By: #### 5 7021-8 ####[facility] LABORATORYCLIA [id number] [address] [facility] RBC (Bld) [#/Vol] Normal 4.20-6.00 [facility] Comment on above: Order Comment: Speci men Type: BLOOD SPECIMENOrdering Facility: [facility] Address: [address] [place] [address] Result Comment: Carolina Owens RN informed lab after results autoverified that she rd on the wrong patient. Lab to credit. Nurse to redraw on correct patient.Corrected result: Previously reported as 3.64 m/uL on 08/16/2021 at 4:44 AM EDT. Performed By: #### 5 7021-8 ####[facility] LABORATORYCLIA [id number] [address] [place] [facility] WBC (Bld) [#/Vol] Normal 3.70-11.00 [facility] Comment on above: Order Comment: Speci men Type: BLOOD SPECIMENOrdering Facility: [facility] Address: [address] [place] [address] Result Comment: Carolina Owens RN informed lab after results autoverified that she rd on the wrong patient. Lab to credit. Nurse to redraw on correct patient.Corrected result: Previously reported as 9.75 k/uL on 08/16/2021 at 4:44 AM EDT. Performed By: #### 5 7021-8 ####[facility]ORATORYCLIA [id number] [address] [place] CONSULT PROGon 08-16-2021 CONSULT PROG Normal [facility] Magnesium SerPl-mCncon 08-16 Magnesium [Mass/Vol] 1.8 mg/dL Normal 1.7-2.3 [facility] Comment on above: Order Comment: Speci men Type: BLOOD SPECIMENOrdering Facility: [facility] Address: [address] [place] [address] Performed By: #### 2 4321-2, 18460-1 ####[facility] LABORATORYCLIA [id number] [place] [address] [place] NURSING PROGon 08-16-2021 NURSING PROG Normal [facility] Basic metabolic 2000 panelon 08-15-2021 Anion gap [Moles/Vol] 13 mmol/L Normal 9-18 [facility] Comment on above: Order Comment: Speci men Type: BLOOD SPECIMENOrdering Facility: [facility] Address: [address] [place] [address] Performed By: #### 2 4321-2 ####[facility] LABORATORYCLIA [id number] [place] [address] [place] Calcium [Mass/Vol] 9.0 mg/dL Normal 8.5-10.2 [facility] Comment on above: Order Comment: Speci men Type: BLOOD SPECIMENOrdering Facility: [facility] Address: [address] [place] [address] Performed By: #### 2 4321-2 ####[facility] LABORATORYCLIA [id number] [place] [address] [place] Chloride [Moles/Vol] 95 mmol/L Low 97-105 [facility] Comment on above: Order Comment: Speci men Type: BLOOD SPECIMENOrdering Facility: [facility] Address: [address] [place] [address] Performed By: #### 2 4321-2 ####[facility]ORATORYCLIA [id number] [place] [address] [place] CO2 [Moles/Vol] 28 mmol/L Normal 22-30 [facility] Comment on above: Order Comment: Speci men Type: BLOOD SPECIMENOrdering Facility: [facility] Address: [address] [place] [address] Performed By: #### 2 4321-2 ####[facility] LABORATORYCLIA [id number] [address] [place] [facility] Creatinine [Mass/Vol] 0.50 mg/dL Low 0.73-1.22 [facility] Comment on above: Order Comment: Shira feldman Type: BLOOD SPECIMENOrdering Facility: [facility] Address: [address] [place] [address] Performed By: #### 2 4321-2 ####[facility] LABORATORYCLIA [id number] [address] ESTIMATED GLOMERULAR FILTRATION RATE 110 mL/min/1.73m??? Normal >=60 [facility] Comment on above: Order Comment: Shira feldman Type: BLOOD SPECIMENOrdering Facility: [facility] Address: [address] [place] [address] Result Comment: Luzmaria mated Glomerular Filtration Rate [...] actual GFR. Performed By: #### 2 4321-2 ####[facility] LABORATORYCLIA [id number] [address] [place] [facility] Glucose [Mass/Vol] 106 mg/dL High 74-99 [facility] Comment on above: Order Comment: Shira francia Type: BLOOD SPECIMENOrdering Facility: [facility] Address: [address] [place] [address] Result Comment: The [place] [employer] (ADA) provides guidance for cutoff [...] Standards of Medical Care in Diabetes 2016, [place] [employer]. Diabetes Care. 2016.39(Suppl 1). Performed By: #### 2 4321-2 ####[facility] LABORATORYCLIA [id number] [address] [place] [facility] Potassium [Moles/Vol] 3.3 mmol/L Low 3.7-5.1 [facility] Comment on above: Order Comment: Speci men Type: BLOOD SPECIMENOrdering Facility: [facility] Address: [address] [place] [address] Performed By: #### 2 4321-2 ####[facility] LABORATORYCLIA [id number] [address] STATES [facility] Sodium [Moles/Vol] 136 mmol/L Normal 136-144 [facility] Comment on above: Order Comment: Shira feldman Type: BLOOD SPECIMENOrdering Facility: [facility] Address: [address] [place] [address] Performed By: #### 2 4321-2 ####[facility] LABORATORYCLIA [id number] [address] Urea nitrogen [Mass/Vol] 11 mg/dL Normal 9-24 [facility] Comment on above: Order Comment: Shira feldman Type: BLOOD SPECIMENOrdering Facility: [facility] Address: [address] [place] [address] Performed By: #### 2 4321-2 ####[facility] LABORATORYCLIA [id number] [address] [place] CASE MANAGEMon 08-15-2021 CASE MANAGEM Normal [facility] CBC W Auto Differential pane l (Bld)on 08-15-2021 Basophils (Bld) [#/Vol] 0.03 10*3/uL Normal <0.11 [facility] Comment on above: Order Comment: Johni men Type: BLOOD SPECIMENOrdering Facility: [facility] Address: [address] [address] Performed By: #### 5 7021-8 ####[facility]ORATORYCLIA [id number] [address] STATES [facility] Basophils/100 WBC (Bld) 0.4 % Normal [facility] Comment on above: Order Comment: Speci men Type: BLOOD SPECIMENOrdering Facility: [facility] Address: [address] [place] [address] Performed By: #### 5 7021-8 ####[facility] LABORATORYCLIA [id number] [address] Differential cell count method Nom (Bld) Auto Normal [facility] Comment on above: Order Comment: Speci men Type: BLOOD SPECIMENOrdering Facility: [facility] Address: [address] [place] [address] Performed By: #### 5 7021-8 ####[facility] LABORATORYCLIA [id number] [address] [place] Eosinophils (Bld) [#/Vol] 0.20 10*3/uL Normal <0.46 [facility] Comment on above: Order Comment: Speci men Type: BLOOD SPECIMENOrdering Facility: [facility] Address: [address] [place] [address] Performed By: #### 5 7021-8 ####[facility] LABORATORYCLIA [id number] [address] Eosinophils/100 WBC (Bld) 2.5 % Normal [facility] Comment on above: Order Comment: Speci men Type: BLOOD SPECIMENOrdering Facility: [facility] Address: [address] [place] [address] Performed By: #### 5 7021-8 ####[facility]ORATORYCLIA [id number] [address] [place] Erythrocyte distribution width (RBC) [Ratio] 16.7 % High 11.5-15.0 [facility] Comment on above: Order Comment: Speci men Type: BLOOD SPECIMENOrdering Facility: [facility] Address: [address] [place] [address] Performed By: #### 5 7021-8 ####[facility] LABORATORYCLIA [id number] [address] Hematocrit (Bld) [Volume fraction] 30.3 % Low 39.0-51.0 [facility] Comment on above: Order Comment: Speci men Type: BLOOD SPECIMENOrdering Facility: [facility] Address: [address] [place] [address] Performed By: #### 5 7021-8 ####[facility] LABORATORYCLIA [id number] [address] Hemoglobin (Bld) [Mass/Vol] 9.4 g/dL Low 13.0-17.0 [facility] Comment on above: Order Comment: Speci men Type: BLOOD SPECIMENOrdering Facility: [facility] Address: [address] [place] [address] Performed By: #### 5 7021-8 ####[facility] LABORATORYCLIA [id number] [address] IMMATURE GRAN % 0.4 % Normal [facility] Comment on above: Order Comment: Speci men Type: BLOOD SPECIMENOrdering Facility: [facility] Address: [address] [place] [address] Performed By: #### 5 7021-8 ####[facility] LABORATORYCLIA [id number] [address] IMMATURE GRAN ABS 0.03 k/uL Normal <0.10 [facility] Comment on above: Order Comment: Speci men Type: BLOOD SPECIMENOrdering Facility: [facility] Address: [address] [place] [address] Performed By: #### 5 7021-8 ####[facility] LABORATORYCLIA [id number] [address] Lymphocytes (Bld) [#/Vol] 1.50 10*3/uL Normal 1.00-4.00 [facility] Comment on above: Order Comment: Speci men Type: BLOOD SPECIMENOrdering Facility: [facility] Address: [address] [place] [address] Performed By: #### 5 7021-8 ####[facility] LABORATORYCLIA [id number] [address] Lymphocytes/100 WBC (Bld) 18.5 % Normal [facility] Comment on above: Order Comment: Speci men Type: BLOOD SPECIMENOrdering Facility: [facility] Address: [address] [place] [address] Performed By: #### 5 7021-8 ####[facility] LABORATORYCLIA [id number] [address] [place] [facility] MCH (RBC) [Entitic mass] 29.0 pg Normal 26.0-34.0 [facility] Comment on above: Order Comment: Speci men Type: BLOOD SPECIMENOrdering Facility: [facility] Address: [address] [place] [address] Performed By: #### 5 7021-8 ####[facility] LABORATORYCLIA [id number] [address] MCHC (RBC) [Mass/Vol] 31.0 g/dL Normal 30.5-36.0 [facility] Comment on above: Order Comment: Speci men Type: BLOOD SPECIMENOrdering Facility: [facility] Address: [address] [place] [address] Performed By: #### 5 7021-8 ####[facility] LABORATORYCLIA [id number] [address] MCV (RBC) [Entitic vol] 93.5 fL Normal 80.0-100.0 [facility] Comment on above: Order Comment: Speci men Type: BLOOD SPECIMENOrdering Facility: [facility] Address: [address] [place] [address] Performed By: #### 5 7021-8 ####[facility]ORATORYCLIA [id number] [place] [address] [place] Monocytes (Bld) [#/Vol] 0.47 10*3/uL Normal <0.87 [facility] Comment on above: Order Comment: Speci men Type: BLOOD SPECIMENOrdering Facility: [facility] Address: [address] [place] [address] Performed By: #### 5 7021-8 ####[facility]ORATORYCLIA [id number] [place] [address] [place] Monocytes/100 WBC (Bld) 5.8 % Normal [facility] Comment on above: Order Comment: Speci men Type: BLOOD SPECIMENOrdering Facility: [facility] Address: [address] [place] [address] Performed By: #### 5 7021-8 ####[facility] LABORATORYCLIA [id number] [place] [address] [place] Neutrophils (Bld) [#/Vol] 5.87 10*3/uL Normal 1.45-7.50 [facility] Comment on above: Order Comment: Speci men Type: BLOOD SPECIMENOrdering Facility: [facility] Address: [address] [place] [address] Performed By: #### 5 7021-8 ####[facility]ATORYCLIA [id number] [address] [place] Neutrophils/100 WBC (Bld) 72.4 % Normal [facility] Comment on above: Order Comment: Speci men Type: BLOOD SPECIMENOrdering Facility: [facility] Address: [address] [place] [address] Performed By: #### 5 7021-8 ####[facility]ORATORYCLIA [id number] [place] [address] [place] Nucleated RBC (Bld) [#/Vol] 10*3/uL Normal <0.01 [facility] Comment on above: Order Comment: Speci men Type: BLOOD SPECIMENOrdering Facility: [facility] Address: [address] [address] Performed By: #### 5 7021-8 ####[facility] LABORATORYCLIA [id number] [address] [place] [facility] Nucleated RBC/100 WBC (Bld) [Ratio] 0.0 /100 WBC Normal [facility] Comment on above: Order Comment: Speci men Type: BLOOD SPECIMENOrdering Facility: [facility] Address: [address] [place] [address] Performed By: #### 5 7021-8 ####[facility] LABORATORYCLIA [id number] [address] [place] Platelet mean volume (Bld) [Entitic vol] 9.4 fL Normal 9.0-12.7 [facility] Comment on above: Order Comment: Speci men Type: BLOOD SPECIMENOrdering Facility: [facility] Address: [address] [place] [address] Performed By: #### 5 7021-8 ####[facility] LABORATORYCLIA [id number] [place] [address] [place] Platelets (Bld) [#/Vol] 290 10*3/uL Normal 150-400 [facility] Comment on above: Order Comment: Speci men Type: BLOOD SPECIMENOrdering Facility: [facility] Address: [address] [place] [address] Performed By: #### 5 7021-8 ####[facility] LABORATORYCLIA [id number] [place] [address] [place] RBC (Bld) [#/Vol] 3.24 10*6/uL Low 4.20-6.00 [facility] Comment on above: Order Comment: Speci men Type: BLOOD SPECIMENOrdering Facility: [facility] Address: [address] [place] [address] Performed By: #### 5 7021-8 ####[facility] LABORATORYCLIA [id number] [place] [address] [place] WBC (Bld) [#/Vol] 8.10 10*3/uL Normal 3.70-11.00 [facility] Comment on above: Order Comment: Speci men Type: BLOOD SPECIMENOrdering Facility: [facility] Address: [address] [place] [address] Performed By: #### 5 7021-8 ####[facility] LABORATORYCLIA [id number] [address] [place] THERAPY NTon 08-15-2021 THERAPY NT Normal [facility] THERAPY NT Normal [facility] THERAPY NT Normal [facility] Basic metabolic 2000 panelon 08-14-2021 Anion gap [Moles/Vol] 10 mmol/L Normal 9-18 [facility] Comment on above: Order Comment: Speci men Type: BLOOD SPECIMENOrdering Facility: [facility] Address: [address] [place] [address] Performed By: #### 2 4321-2 ####[facility] LABORATORYCLIA [id number] [place] [address] [place] Calcium [Mass/Vol] 8.8 mg/dL Normal 8.5-10.2 [facility] Comment on above: Order Comment: Speci men Type: BLOOD SPECIMENOrdering Facility: [facility] Address: [address] [place] [address] Performed By: #### 2 4321-2 ####[facility] LABORATORYCLIA [id number] [place] [address] [place] Chloride [Moles/Vol] 92 mmol/L Low 97-105 [facility] Comment on above: Order Comment: Speci men Type: BLOOD SPECIMENOrdering Facility: [facility] Address: [address] [place] [address] Performed By: #### 2 4321-2 ####[facility] LABORATORYCLIA [id number] [place] [address] [place] CO2 [Moles/Vol] 29 mmol/L Normal 22-30 [facility] Comment on above: Order Comment: Speci men Type: BLOOD SPECIMENOrdering Facility: [facility] Address: [address] [address] Performed By: #### 2 4321-2 ####[facility]ITALIA [id number] [address] [place] [facility] Creatinine [Mass/Vol] 0.49 mg/dL Low 0.73-1.22 [facility] Comment on above: Order Comment: Speci men Type: BLOOD SPECIMENOrdering Facility: [facility] Address: [address] [place] [address] Performed By: #### 2 4321-2 ####[facility]PITALIA [id number] [address] ESTIMATED GLOMERULAR FILTRATION RATE 111 mL/min/1.73m??? Normal >=60 [facility] Comment on above: Order Comment: Speci men Type: BLOOD SPECIMENOrdering Facility: [facility] Address: [address] [place] [address] Result Comment: Luzmaria mated Glomerular Filtration Rate [...] actual GFR. Performed By: #### 2 4321-2 ####[facility] LABORATORYIA [id number] [address] [facility] Glucose [Mass/Vol] 104 mg/dL High 74-99 [facility] Comment on above: Order Comment: [facility] Type: BLOOD SPECIMENOrdering Facility: [facility] Address: [address] [place] [address] Result Comment: The [place] [employer] (ADA) provides guidance for cutoff [...] Standards of Medical Care in Diabetes 2016, [place] [employer]. Diabetes Care. 2016.39(Suppl 1). Performed By: #### 2 4321-2 ####[facility] LABORATORYCLIA [id number] [address] Potassium [Moles/Vol] 3.1 mmol/L Low 3.7-5.1 [facility] Comment on above: Order Comment: Speci men Type: BLOOD SPECIMENOrdering Facility: [facility] Address: [address] [place] [address] Performed By: #### 2 4321-2 ####[facility] LABORATORYCLIA [id number] [address] Sodium [Moles/Vol] 131 mmol/L Low 136-144 [facility] Comment on above: Order Comment: Speci men Type: BLOOD SPECIMENOrdering Facility: [facility] Address: [address] [place] [address] Performed By: #### 2 4321-2 ####[facility] LABORATORYCLIA [id number] [address] STATES [facility] Urea nitrogen [Mass/Vol] 13 mg/dL Normal 9-24 [facility] Comment on above: Order Comment: Speci men Type: BLOOD SPECIMENOrdering Facility: [facility] Address: [address] [place] [address] Performed By: #### 2 4321-2 ####[facility] LABORATORYCLIA [id number] [address] [place] CBC W Auto Differential pane l (Bld)on 08-14-2021 Basophils (Bld) [#/Vol] 10*3/uL Normal <0.11 [facility] Comment on above: Order Comment: Speci men Type: BLOOD SPECIMENOrdering Facility: [facility] Address: [address] [address] Performed By: #### 5 7021-8 ####[facility]ATORYCLIA [id number] [address] Basophils/100 WBC (Bld) 0.2 % Normal [facility] Comment on above: Order Comment: Speci men Type: BLOOD SPECIMENOrdering Facility: [facility] Address: [address] [place] [address] Performed By: #### 5 7021-8 ####[facility] LABORATORYCLIA [id number] [address] Differential cell count method Nom (Bld) Auto Normal [facility] Comment on above: Order Comment: Speci men Type: BLOOD SPECIMENOrdering Facility: [facility] Address: [address] [place] [address] Performed By: #### 5 7021-8 ####[facility] LABORATORYCLIA [id number] [address] [place] Eosinophils (Bld) [#/Vol] 0.23 10*3/uL Normal <0.46 [facility] Comment on above: Order Comment: Speci men Type: BLOOD SPECIMENOrdering Facility: [facility] Address: [address] [place] [address] Performed By: #### 5 7021-8 ####[facility] LABORATORYCLIA [id number] [address] Eosinophils/100 WBC (Bld) 2.7 % Normal [facility] Comment on above: Order Comment: Speci men Type: BLOOD SPECIMENOrdering Facility: [facility] Address: [address] [place] [address] Performed By: #### 5 7021-8 ####[facility]ORATORYCLIA [id number] [address] [place] Erythrocyte distribution width (RBC) [Ratio] 16.6 % High 11.5-15.0 [facility] Comment on above: Order Comment: Speci men Type: BLOOD SPECIMENOrdering Facility: [facility] Address: [address] [place] [address] Performed By: #### 5 7021-8 ####[facility] LABORATORYCLIA [id number] [address] Hematocrit (Bld) [Volume fraction] 28.6 % Low 39.0-51.0 [facility] Comment on above: Order Comment: Speci men Type: BLOOD SPECIMENOrdering Facility: [facility] Address: [address] [place] [address] Performed By: #### 5 7021-8 ####[facility] LABORATORYCLIA [id number] [address] Hemoglobin (Bld) [Mass/Vol] 9.0 g/dL Low 13.0-17.0 [facility] Comment on above: Order Comment: Speci men Type: BLOOD SPECIMENOrdering Facility: [facility] Address: [address] [place] [address] Performed By: #### 5 7021-8 ####[facility] LABORATORYCLIA [id number] [address] IMMATURE GRAN % 0.2 % Normal [facility] Comment on above: Order Comment: Speci men Type: BLOOD SPECIMENOrdering Facility: [facility] Address: [address] [place] [address] Performed By: #### 5 7021-8 ####[facility] LABORATORYCLIA [id number] [address] IMMATURE GRAN ABS <0.03 Normal <0.10 [facility] Comment on above: Order Comment: Speci men Type: BLOOD SPECIMENOrdering Facility: [facility] Address: [address] [place] [address] Performed By: #### 5 7021-8 ####[facility] LABORATORYCLIA [id number] [place] [address] [place] Lymphocytes (Bld) [#/Vol] 1.33 10*3/uL Normal 1.00-4.00 [facility] Comment on above: Order Comment: Speci men Type: BLOOD SPECIMENOrdering Facility: [facility] Address: [address] [place] [address] Performed By: #### 5 7021-8 ####[facility] LABORATORYCLIA [id number] [address] [place] [facility] Lymphocytes/100 WBC (Bld) 15.6 % Normal [facility] Comment on above: Order Comment: Speci men Type: BLOOD SPECIMENOrdering Facility: [facility] Address: [address] [place] [address] Performed By: #### 5 7021-8 ####[facility] LABORATORYCLIA [id number] [address] [place] MCH (RBC) [Entitic mass] 29.0 pg Normal 26.0-34.0 [facility] Comment on above: Order Comment: Speci men Type: BLOOD SPECIMENOrdering Facility: [facility] Address: [address] [place] [address] Performed By: #### 5 7021-8 ####[facility] LABORATORYCLIA [id number] [address] [place] MCHC (RBC) [Mass/Vol] 31.5 g/dL Normal 30.5-36.0 [facility] Comment on above: Order Comment: Speci men Type: BLOOD SPECIMENOrdering Facility: [facility] Address: [address] [place] [address] Performed By: #### 5 7021-8 ####[facility] LABORATORYCLIA [id number] [address] [place] MCV (RBC) [Entitic vol] 92.3 fL Normal 80.0-100.0 [facility] Comment on above: Order Comment: Speci men Type: BLOOD SPECIMENOrdering Facility: [facility] Address: [address] [place] [address] Performed By: #### 5 7021-8 ####[facility]ORATORYCLIA [id number] [place] [address] [place] Monocytes (Bld) [#/Vol] 0.44 10*3/uL Normal <0.87 [facility] Comment on above: Order Comment: Speci men Type: BLOOD SPECIMENOrdering Facility: [facility] Address: [address] [place] [address] Performed By: #### 5 7021-8 ####[facility]ORATORYCLIA [id number] [address] [place] Monocytes/100 WBC (Bld) 5.2 % Normal [facility] Comment on above: Order Comment: Speci men Type: BLOOD SPECIMENOrdering Facility: [facility] Address: [address] [place] [address] Performed By: #### 5 7021-8 ####[facility] LABORATORYCLIA [id number] [address] [place] Neutrophils (Bld) [#/Vol] 6.46 10*3/uL Normal 1.45-7.50 [facility] Comment on above: Order Comment: Speci men Type: BLOOD SPECIMENOrdering Facility: [facility] Address: [address] [place] [address] Performed By: #### 5 7021-8 ####[facility] LABORATORYCLIA [id number] [address] [place] Neutrophils/100 WBC (Bld) 76.1 % Normal [facility] Comment on above: Order Comment: Speci men Type: BLOOD SPECIMENOrdering Facility: [facility] Address: [address] [place] [address] Performed By: #### 5 7021-8 ####[facility] LABORATORYCLIA [id number] [place] [address] [place] Nucleated RBC (Bld) [#/Vol] 10*3/uL Normal <0.01 [facility] Comment on above: Order Comment: Speci men Type: BLOOD SPECIMENOrdering Facility: [facility] Address: [address] [address] Performed By: #### 5 7021-8 ####[facility] LABORATORYCLIA [id number] [address] Nucleated RBC/100 WBC (Bld) [Ratio] 0.0 /100 WBC Normal [facility] Comment on above: Order Comment: Speci men Type: BLOOD SPECIMENOrdering Facility: [facility] Address: [address] [place] [address] Performed By: #### 5 7021-8 ####[facility] LABORATORYCLIA [id number] [address] [place] Platelet mean volume (Bld) [Entitic vol] 9.5 fL Normal 9.0-12.7 [facility] Comment on above: Order Comment: Speci men Type: BLOOD SPECIMENOrdering Facility: [facility] Address: [address] [place] [address] Performed By: #### 5 7021-8 ####[facility] LABORATORYCLIA [id number] [address] [place] Platelets (Bld) [#/Vol] 247 10*3/uL Normal 150-400 [facility] Comment on above: Order Comment: Speci men Type: BLOOD SPECIMENOrdering Facility: [facility] Address: [address] [place] [address] Performed By: #### 5 7021-8 ####[facility] LABORATORYCLIA [id number] [address] [place] RBC (Bld) [#/Vol] 3.10 10*6/uL Low 4.20-6.00 [facility] Comment on above: Order Comment: Speci men Type: BLOOD SPECIMENOrdering Facility: [facility] Address: [address] [place] [address] Performed By: #### 5 7021-8 ####[facility] LABORATORYCLIA [id number] [address] WBC (Bld) [#/Vol] 8.50 10*3/uL Normal 3.70-11.00 [facility] Comment on above: Order Comment: Speci men Type: BLOOD SPECIMENOrdering Facility: [facility] Address: [address] [place] [address] Performed By: #### 5 7021-8 ####[facility] LABORATORYCLIA [id number] [address] [place] CONSULTon 08-14-2021 CONSULT Normal [facility] NURSING PROGon 08-14-2021 NURSING PROG Normal [facility] CBC W Auto Differential pane l (Bld)on 08-13-2021 Basophils (Bld) [#/Vol] 10*3/uL Normal <0.11 [facility] Comment on above: Order Comment: Speci men Type: BLOOD SPECIMENOrdering Facility: [facility] Address: [address] [place] [address] Performed By: #### 5 7021-8 ####[facility] LABORATORYCLIA [id number] [address] [place] Basophils/100 WBC (Bld) 0.2 % Normal [facility] Comment on above: Order Comment: Speci men Type: BLOOD SPECIMENOrdering Facility: [facility] Address: [address] [place] [address] Performed By: #### 5 7021-8 ####[facility] LABORATORYCLIA [id number] [address] [place] Differential cell count method Nom (Bld) Auto Normal [facility] Comment on above: Order Comment: Speci men Type: BLOOD SPECIMENOrdering Facility: [facility] Address: [address] [place] [address] Performed By: #### 5 7021-8 ####[facility] LABORATORYCLIA [id number] [place] [address] [place] Eosinophils (Bld) [#/Vol] 0.31 10*3/uL Normal <0.46 [facility] Comment on above: Order Comment: Speci men Type: BLOOD SPECIMENOrdering Facility: [facility] Address: [address] [place] [address] Performed By: #### 5 7021-8 ####[facility] LABORATORYCLIA [id number] [address] [place] Eosinophils/100 WBC (Bld) 3.7 % Normal [facility] Comment on above: Order Comment: Speci men Type: BLOOD SPECIMENOrdering Facility: [facility] Address: [address] [place] [address] Performed By: #### 5 7021-8 ####[facility] LABORATORYCLIA [id number] [address] [place] Erythrocyte distribution width (RBC) [Ratio] 16.6 % High 11.5-15.0 [facility] Comment on above: Order Comment: Speci men Type: BLOOD SPECIMENOrdering Facility: [facility] Address: [address] [place] [address] Performed By: #### 5 7021-8 ####[facility] LABORATORYCLIA [id number] [address] [place] Hematocrit (Bld) [Volume fraction] 27.5 % Low 39.0-51.0 [facility] Comment on above: Order Comment: Speci men Type: BLOOD SPECIMENOrdering Facility: [facility] Address: [address] [place] [address] Performed By: #### 5 7021-8 ####[facility] LABORATORYCLIA [id number] [address] [place] Hemoglobin (Bld) [Mass/Vol] 8.4 g/dL Low 13.0-17.0 [facility] Comment on above: Order Comment: Speci men Type: BLOOD SPECIMENOrdering Facility: [facility] Address: [address] [place] [address] Performed By: #### 5 7021-8 ####[facility]ORATORYCLIA [id number] [address] IMMATURE GRAN % 0.5 % Normal [facility] Comment on above: Order Comment: Speci men Type: BLOOD SPECIMENOrdering Facility: [facility] Address: [address] [place] [address] Performed By: #### 5 7021-8 ####[facility] LABORATORYCLIA [id number] [address] IMMATURE GRAN ABS 0.04 k/uL Normal <0.10 [facility] Comment on above: Order Comment: Speci men Type: BLOOD SPECIMENOrdering Facility: [facility] Address: [address] [place] [address] Performed By: #### 5 7021-8 ####[facility] LABORATORYCLIA [id number] [address] Lymphocytes (Bld) [#/Vol] 1.55 10*3/uL Normal 1.00-4.00 [facility] Comment on above: Order Comment: Speci men Type: BLOOD SPECIMENOrdering Facility: [facility] Address: [address] [place] [address] Performed By: #### 5 7021-8 ####[facility] LABORATORYCLIA [id number] [address] Lymphocytes/100 WBC (Bld) 18.7 % Normal [facility] Comment on above: Order Comment: Speci men Type: BLOOD SPECIMENOrdering Facility: [facility] Address: [address] [place] [address] Performed By: #### 5 7021-8 ####[facility] LABORATORYCLIA [id number] [address] [place] [facility] MCH (RBC) [Entitic mass] 28.9 pg Normal 26.0-34.0 [facility] Comment on above: Order Comment: Speci men Type: BLOOD SPECIMENOrdering Facility: [facility] Address: [address] [place] [address] Performed By: #### 5 7021-8 ####[facility] LABORATORYCLIA [id number] [address] [place] MCHC (RBC) [Mass/Vol] 30.5 g/dL Normal 30.5-36.0 [facility] Comment on above: Order Comment: Speci men Type: BLOOD SPECIMENOrdering Facility: [facility] Address: [address] [place] [address] Performed By: #### 5 7021-8 ####[facility] LABORATORYCLIA [id number] [address] STATES [place] [facility] MCV (RBC) [Entitic vol] 94.5 fL Normal 80.0-100.0 [facility] Comment on above: Order Comment: Speci men Type: BLOOD SPECIMENOrdering Facility: [facility] Address: [address] [place] [address] Performed By: #### 5 7021-8 ####[facility] LABORATORYCLIA [id number] [address] STATES [place] [facility] Monocytes (Bld) [#/Vol] 0.47 10*3/uL Normal <0.87 [facility] Comment on above: Order Comment: Speci men Type: BLOOD SPECIMENOrdering Facility: [facility] Address: [address] [place] [address] Performed By: #### 5 7021-8 ####[facility] LABORATORYCLIA [id number] [address] Monocytes/100 WBC (Bld) 5.7 % Normal [facility] Comment on above: Order Comment: Speci men Type: BLOOD SPECIMENOrdering Facility: [facility] Address: [address] [place] [address] Performed By: #### 5 7021-8 ####[facility] LABORATORYCLIA [id number] [address] [place] Neutrophils (Bld) [#/Vol] 5.92 10*3/uL Normal 1.45-7.50 [facility] Comment on above: Order Comment: Speci men Type: BLOOD SPECIMENOrdering Facility: [facility] Address: [address] [place] [address] Performed By: #### 5 7021-8 ####[facility] LABORATORYCLIA [id number] [address] Neutrophils/100 WBC (Bld) 71.2 % Normal [facility] Comment on above: Order Comment: Speci men Type: BLOOD SPECIMENOrdering Facility: [facility] Address: [address] [place] [address] Performed By: #### 5 7021-8 ####[facility] LABORATORYCLIA [id number] [address] [place] Nucleated RBC (Bld) [#/Vol] 10*3/uL Normal <0.01 [facility] Comment on above: Order Comment: Speci men Type: BLOOD SPECIMENOrdering Facility: [facility] Address: [address] [place] [address] Performed By: #### 5 7021-8 ####[facility] LABORATORYCLIA [id number] [address] Nucleated RBC/100 WBC (Bld) [Ratio] 0.0 /100 WBC Normal [facility] Comment on above: Order Comment: Speci men Type: BLOOD SPECIMENOrdering Facility: [facility] Address: [address] [place] [address] Performed By: #### 5 7021-8 ####[facility] LABORATORYCLIA [id number] [address] [place] Platelet mean volume (Bld) [Entitic vol] 9.9 fL Normal 9.0-12.7 [facility] Comment on above: Order Comment: Speci men Type: BLOOD SPECIMENOrdering Facility: [facility] Address: [address] [place] [address] Performed By: #### 5 7021-8 ####[facility] LABORATORYCLIA [id number] [place] [address] [place] Platelets (Bld) [#/Vol] 203 10*3/uL Normal 150-400 [facility] Comment on above: Order Comment: Speci men Type: BLOOD SPECIMENOrdering Facility: [facility] Address: [address] [place] [address] Performed By: #### 5 7021-8 ####[facility] LABORATORYCLIA [id number] [place] [address] [place] RBC (Bld) [#/Vol] 2.91 10*6/uL Low 4.20-6.00 [facility] Comment on above: Order Comment: Speci men Type: BLOOD SPECIMENOrdering Facility: [facility] Address: [address] [place] [address] Performed By: #### 5 7021-8 ####[facility] LABORATORYCLIA [id number] [address] OF [facility] WBC (Bld) [#/Vol] 8.31 10*3/uL Normal 3.70-11.00 [facility] Comment on above: Order Comment: Speci men Type: BLOOD SPECIMENOrdering Facility: [facility] Address: [address] [place] [address] Performed By: #### 5 7021-8 ####[facility] LABORATORYCLIA [id number] [address] [place] aPTT PPPon 08-13-2021 aPTT Coag (PPP) [Time] 69.7 s High 23.0-32.4 [facility] Comment on above: Order Comment: Speci men Type: BLOOD SPECIMENOrdering Facility: [facility] Address: [address] [place] [address] Performed By: #### 1 4979-9 ####[facility] LABORATORYCLIA [id number] [address] aPTT Coag (PPP) [Time] 70.6 s High 23.0-32.4 [facility] Comment on above: Order Comment: Speci men Type: BLOOD SPECIMENOrdering Facility: [facility] Address: [address] [place] [address] Performed By: #### 1 4979-9 ####[facility] LABORATORYCLIA [id number] [place] [address] [place] ALLIED HEALTHon 08-12-2021 ALLIED HEALTH Normal [facility] ALLIED HEALTH Normal [facility] Basic metabolic 2000 panelon 08-12-2021 Anion gap [Moles/Vol] 7 mmol/L Low 9-18 [facility] Comment on above: Order Comment: Speci men Type: BLOOD SPECIMENOrdering Facility: [facility] Address: [address] [place] [address] Performed By: #### 2 4321-2, , 2776-05 ####[facility] LABORATORYCLIA [id number] [place] [address] [place] Calcium [Mass/Vol] 8.8 mg/dL Normal 8.5-10.2 [facility] Comment on above: Order Comment: Speci men Type: BLOOD SPECIMENOrdering Facility: [facility] Address: [address] [place] [address] Performed By: #### 2 4321-2, , 2776-05 ####[facility] LABORATORYCLIA [id number] [place] [address] [place] Chloride [Moles/Vol] 96 mmol/L Low 97-105 [facility] Comment on above: Order Comment: Speci men Type: BLOOD SPECIMENOrdering Facility: [facility] Address: [address] [place] [address] Performed By: #### 2 4321-2, , 2776-05 ####[facility] LABORATORYCLIA [id number] [place] [address] [place] CO2 [Moles/Vol] 32 mmol/L High 22-30 [facility] Comment on above: Order Comment: Speci men Type: BLOOD SPECIMENOrdering Facility: [facility] Address: [address] [place] [address] Performed By: #### 2 4321-2, 66325-6, 2776-05 ####[facility] SERVICESCLIA [id number] [place] [address] [place] Creatinine [Mass/Vol] 0.52 mg/dL Low 0.73-1.22 [facility] Comment on above: Order Comment: Speccara feldman Type: BLOOD SPECIMENOrdering Facility: [facility] Address: [address] [place], [place] [id number] Performed By: #### 2 4321-2, , 2776-05 ####[facility]PITALIA [id number] [place] [address] [facility] ESTIMATED GLOMERULAR FILTRATION RATE 109 mL/min/1.73m??? Normal >=60 [facility] Comment on above: Order Comment: Shira feldman Type: BLOOD SPECIMENOrdering Facility: [facility] Address: [address] [place], [place] [address] Result Comment: Luzmaria mated Glomerular Filtration Rate [...] By: #### 2 4321-2, , 2776-05 ####[facility] HOSPITALIA [id number] [place] [address] [place] Glucose [Mass/Vol] 119 mg/dL High 74-99 [facility] Comment on above: Order Comment: Speci francia Type: BLOOD SPECIMENOrdering Facility: [facility] Address: [address] [id number] Result Comment: The [place] [employer] (ADA) provides guidance for cutoff [...] Standards of Medical Care in Diabetes 2016, [place] [employer]. Diabetes Care. 2016.39(Suppl 1). Performed By: #### 2 4321-2, , 2776-05 ####[facility] LABORATORYCLIA [id number] [place] [address] [place] Potassium [Moles/Vol] 3.7 mmol/L Normal 3.7-5.1 [facility] Comment on above: Order Comment: Shira feldman Type: BLOOD SPECIMENOrdering Facility: [facility] Address: [address] [place] [address] Performed By: #### 2 4321-2, , 2776-05 ####[facility] SERVICESCLIA [id number] [address] [place] Sodium [Moles/Vol] 135 mmol/L Low 136-144 [facility] Comment on above: Order Comment: Shira feldman Type: BLOOD SPECIMENOrdering Facility: [facility] Address: [address] [place] [address] Performed By: #### 2 4321-2, , 2776-05 ####[facility] LABORATORYCLIA [id number] [place] [address] [place] Urea nitrogen [Mass/Vol] 20 mg/dL Normal 9-24 [facility] Comment on above: Order Comment: Shira feldman Type: BLOOD SPECIMENOrdering Facility: [facility] Address: [address] [place] [address] Performed By: #### 2 4321-2, , 2776-05 ####[facility] LABORATORYCLIA [id number] [place] [address] [place] CASE MANAGEMon 08-12-2021 CASE MANAGEM Normal [facility] CBC W Auto Differential pane l (Bld)on 08-12-2021 Basophils (Bld) [#/Vol] 0.04 10*3/uL Normal <0.11 [facility] Comment on above: Order Comment: Speci men Type: BLOOD SPECIMENOrdering Facility: [facility] Address: [address] [address] Performed By: #### 5 7021-8 ####[facility]ORATORYCLIA [id number] [place] [address] [place] Basophils/100 WBC (Bld) 0.5 % Normal [facility] Comment on above: Order Comment: Speci men Type: BLOOD SPECIMENOrdering Facility: [facility] Address: [address] [place] [address] Performed By: #### 5 7021-8 ####[facility] LABORATORYCLIA [id number] [address] [place] Differential cell count method Nom (Bld) Auto Normal [facility] Comment on above: Order Comment: Speci men Type: BLOOD SPECIMENOrdering Facility: [facility] Address: [address] [place] [address] Performed By: #### 5 7021-8 ####[facility] LABORATORYCLIA [id number] [place] [address] [place] Eosinophils (Bld) [#/Vol] 0.19 10*3/uL Normal <0.46 [facility] Comment on above: Order Comment: Speci men Type: BLOOD SPECIMENOrdering Facility: [facility] Address: [address] [place] [address] Performed By: #### 5 7021-8 ####[facility] LABORATORYCLIA [id number] [address] [place] Eosinophils/100 WBC (Bld) 2.3 % Normal [facility] Comment on above: Order Comment: Speci men Type: BLOOD SPECIMENOrdering Facility: [facility] Address: [address] [place] [address] Performed By: #### 5 7021-8 ####[facility] LABORATORYCLIA [id number] [address] Erythrocyte distribution width (RBC) [Ratio] 17.1 % High 11.5-15.0 [facility] Comment on above: Order Comment: Speci men Type: BLOOD SPECIMENOrdering Facility: [facility] Address: [address] [place] [address] Performed By: #### 5 7021-8 ####[facility] LABORATORYCLIA [id number] [address] [facility] Hematocrit (Bld) [Volume fraction] 25.3 % Low 39.0-51.0 [facility] Comment on above: Order Comment: Speci men Type: BLOOD SPECIMENOrdering Facility: [facility] Address: [address] [place] [address] Performed By: #### 5 7021-8 ####[facility] LABORATORYCLIA [id number] [address] Hemoglobin (Bld) [Mass/Vol] 7.9 g/dL Low 13.0-17.0 [facility] Comment on above: Order Comment: Speci men Type: BLOOD SPECIMENOrdering Facility: [facility] Address: [address] [place] [address] Performed By: #### 5 7021-8 ####[facility] LABORATORYCLIA [id number] [address] IMMATURE GRAN % 0.5 % Normal [facility] Comment on above: Order Comment: Speci men Type: BLOOD SPECIMENOrdering Facility: [facility] Address: [address] [place] [address] Performed By: #### 5 7021-8 ####[facility] LABORATORYCLIA [id number] [address] IMMATURE GRAN ABS 0.04 k/uL Normal <0.10 [facility] Comment on above: Order Comment: Speci men Type: BLOOD SPECIMENOrdering Facility: [facility] Address: [address] [place] [address] Performed By: #### 5 7021-8 ####[facility] LABORATORYCLIA [id number] [address] [facility] Lymphocytes (Bld) [#/Vol] 1.69 10*3/uL Normal 1.00-4.00 [facility] Comment on above: Order Comment: Speci men Type: BLOOD SPECIMENOrdering Facility: [facility] Address: [address] [place] [address] Performed By: #### 5 7021-8 ####[facility] LABORATORYCLIA [id number] [address] Lymphocytes/100 WBC (Bld) 20.1 % Normal [facility] Comment on above: Order Comment: Speci men Type: BLOOD SPECIMENOrdering Facility: [facility] Address: [address] [place] [address] Performed By: #### 5 7021-8 ####[facility] LABORATORYCLIA [id number] [address] MCH (RBC) [Entitic mass] 28.5 pg Normal 26.0-34.0 [facility] Comment on above: Order Comment: Speci men Type: BLOOD SPECIMENOrdering Facility: [facility] Address: [address] [place] [address] Performed By: #### 5 7021-8 ####[facility] [facility] LABORATORYCLIA [id number] [address] [place] [facility] MCHC (RBC) [Mass/Vol] 31.2 g/dL Normal 30.5-36.0 [facility] Comment on above: Order Comment: Speci men Type: BLOOD SPECIMENOrdering Facility: [facility] Address: [address] [place] [address] Performed By: #### 5 7021-8 ####[facility] LABORATORYCLIA [id number] [address] MCV (RBC) [Entitic vol] 91.3 fL Normal 80.0-100.0 [facility] Comment on above: Order Comment: Speci men Type: BLOOD SPECIMENOrdering Facility: [facility] Address: [address] [place] [address] Performed By: #### 5 7021-8 ####[facility] LABORATORYCLIA [id number] [place] [address] [place] Monocytes (Bld) [#/Vol] 0.53 10*3/uL Normal <0.87 [facility] Comment on above: Order Comment: Speci men Type: BLOOD SPECIMENOrdering Facility: [facility] Address: [address] [place] [address] Performed By: #### 5 7021-8 ####[facility] LABORATORYCLIA [id number] [address] [place] Monocytes/100 WBC (Bld) 6.3 % Normal [facility] Comment on above: Order Comment: Speci men Type: BLOOD SPECIMENOrdering Facility: [facility] Address: [address] [place] [address] Performed By: #### 5 7021-8 ####[facility] LABORATORYCLIA [id number] [place] [address] [place] Neutrophils (Bld) [#/Vol] 5.90 10*3/uL Normal 1.45-7.50 [facility] Comment on above: Order Comment: Speci men Type: BLOOD SPECIMENOrdering Facility: [facility] Address: [address] [place] [address] Performed By: #### 5 7021-8 ####[facility] LABORATORYCLIA [id number] [place] [address] [place] Neutrophils/100 WBC (Bld) 70.3 % Normal [facility] Comment on above: Order Comment: Speci men Type: BLOOD SPECIMENOrdering Facility: [facility] Address: [address] [place] [address] Performed By: #### 5 7021-8 ####[facility]ORATORYCLIA [id number] [address] [place] Nucleated RBC (Bld) [#/Vol] 10*3/uL Normal <0.01 [facility] Comment on above: Order Comment: Speci men Type: BLOOD SPECIMENOrdering Facility: [facility] Address: [address] [place] [address] Performed By: #### 5 7021-8 ####[facility] LABORATORYCLIA [id number] [address] [place] Nucleated RBC/100 WBC (Bld) [Ratio] 0.0 /100 WBC Normal [facility] Comment on above: Order Comment: Speci men Type: BLOOD SPECIMENOrdering Facility: [facility] Address: [address] [place] [address] Performed By: #### 5 7021-8 ####[facility] LABORATORYCLIA [id number] [address] [place] Platelet mean volume (Bld) [Entitic vol] 9.8 fL Normal 9.0-12.7 [facility] Comment on above: Order Comment: Speci men Type: BLOOD SPECIMENOrdering Facility: [facility] Address: [address] [place] [address] Performed By: #### 5 7021-8 ####[facility] LABORATORYCLIA [id number] [address] [place] Platelets (Bld) [#/Vol] 164 10*3/uL Normal 150-400 [facility] Comment on above: Order Comment: Speci men Type: BLOOD SPECIMENOrdering Facility: [facility] Address: [address] [place] [address] Performed By: #### 5 7021-8 ####[facility] LABORATORYCLIA [id number] [address] [place] RBC (Bld) [#/Vol] 2.77 10*6/uL Low 4.20-6.00 [facility] Comment on above: Order Comment: Speci men Type: BLOOD SPECIMENOrdering Facility: [facility] Address: [address] [place] [address] Performed By: #### 5 7021-8 ####[facility] LABORATORYCLIA [id number] [place] [address] [place] WBC (Bld) [#/Vol] 8.39 10*3/uL Normal 3.70-11.00 [facility] Comment on above: Order Comment: Speci men Type: BLOOD SPECIMENOrdering Facility: [facility] Address: [address] [place] [address] Performed By: #### 5 7021-8 ####[facility] LABORATORYCLIA [id number] [address] [place] CT BRAIN WO IVCONon 08-13-[address] BRAIN WO IVCON Normal [facility] CT BRAIN WO IVCON Normal [facility] Magnesium SerPl-mCncon 08-12 Magnesium [Mass/Vol] 2.0 mg/dL Normal 1.7-2.3 [facility] Comment on above: Order Comment: Speci men Type: BLOOD SPECIMENOrdering Facility: [facility] Address: [address] [place] [address] Performed By: #### 2 4321-2, , 2776-05 ####[facility] LABORATORYCLIA [id number] [address] [place] Phosphate SerPl-mCncon 08-12 Phosphate [Mass/Vol] 2.9 mg/dL Normal 2.7-4.8 [facility] Comment on above: Order Comment: Speci men Type: BLOOD SPECIMENOrdering Facility: [facility] Address: [address] [place] [address] Performed By: #### 2 4321-2, , 2776-05 ####[facility]ORATORYCLIA [id number] [address] [place] THERAPY NTon 08-12-2021 THERAPY NT Normal [facility] THERAPY NT Normal [facility] aPTT PPPon 08-12-2021 aPTT Coag (PPP) [Time] 94.2 s High 23.0-32.4 [facility] Comment on above: Order Comment: Speci men Type: BLOOD SPECIMENOrdering Facility: [facility] Address: [address] [place] [address] Performed By: #### 1 4979-9 ####[facility] LABORATORYCLIA [id number] [address] aPTT Coag (PPP) [Time] 84.4 s High 23.0-32.4 [facility] Comment on above: Order Comment: Speci men Type: BLOOD SPECIMENOrdering Facility: [facility] Address: [address] [place] [address] Performed By: #### 1 4979-9 ####[facility] LABORATORYCLIA [id number] [address] aPTT Coag (PPP) [Time] 71.3 s High 23.0-32.4 [facility] Comment on above: Order Comment: Speci men Type: BLOOD SPECIMENOrdering Facility: [facility] Address: [address] [place] [address] Performed By: #### 1 4979-9 ####[facility] LABORATORYCLIA [id number] [address] [place] ALLIED HEALTHon 08-11-2021 ALLIED HEALTH Normal [facility] CBC W Auto Differential pane l (Bld)on 08-11-2021 Basophils (Bld) [#/Vol] 10*3/uL Normal <0.11 [facility] Comment on above: Order Comment: Speci men Type: BLOOD SPECIMENOrdering Facility: [facility] Address: [address] [place] [address] Performed By: #### 5 7021-8 ####[facility] LABORATORYCLIA [id number] [address] Basophils/100 WBC (Bld) 0.2 % Normal [facility] Comment on above: Order Comment: Speci men Type: BLOOD SPECIMENOrdering Facility: [facility] Address: [address] [place] [address] Performed By: #### 5 7021-8 ####[facility] LABORATORYCLIA [id number] [address] Differential cell count method Nom (Bld) Auto Normal [facility] Comment on above: Order Comment: Speci men Type: BLOOD SPECIMENOrdering Facility: [facility] Address: [address] [place] [address] Performed By: #### 5 7021-8 ####[facility] LABORATORYCLIA [id number] [address] [place] Eosinophils (Bld) [#/Vol] 0.16 10*3/uL Normal <0.46 [facility] Comment on above: Order Comment: Speci men Type: BLOOD SPECIMENOrdering Facility: [facility] Address: [address] [place] [address] Performed By: #### 5 7021-8 ####[facility] LABORATORYCLIA [id number] [address] Eosinophils/100 WBC (Bld) 1.8 % Normal [facility] Comment on above: Order Comment: Speci men Type: BLOOD SPECIMENOrdering Facility: [facility] Address: [address] [place] [address] Performed By: #### 5 7021-8 ####[facility] LABORATORYCLIA [id number] [address] [place] Erythrocyte distribution width (RBC) [Ratio] 17.3 % High 11.5-15.0 [facility] Comment on above: Order Comment: Speci men Type: BLOOD SPECIMENOrdering Facility: [facility] Address: [address] [place] [address] Performed By: #### 5 7021-8 ####[facility] LABORATORYCLIA [id number] [address] [place] Hematocrit (Bld) [Volume fraction] 26.6 % Low 39.0-51.0 [facility] Comment on above: Order Comment: Speci men Type: BLOOD SPECIMENOrdering Facility: [facility] Address: [address] [place] [address] Performed By: #### 5 7021-8 ####[facility] LABORATORYCLIA [id number] [address] [place] [facility] Hemoglobin (Bld) [Mass/Vol] 8.2 g/dL Low 13.0-17.0 [facility] Comment on above: Order Comment: Speci men Type: BLOOD SPECIMENOrdering Facility: [facility] Address: [address] [place] [address] Performed By: #### 5 7021-8 ####[facility] LABORATORYCLIA [id number] [address] [place] IMMATURE GRAN % 0.6 % Normal [facility] Comment on above: Order Comment: Speci men Type: BLOOD SPECIMENOrdering Facility: [facility] Address: [address] [place] [address] Performed By: #### 5 7021-8 ####[facility] LABORATORYCLIA [id number] [address] STATES [facility] IMMATURE GRAN ABS 0.05 k/uL Normal <0.10 [facility] Comment on above: Order Comment: Speci men Type: BLOOD SPECIMENOrdering Facility: [facility] Address: [address] [place] [address] Performed By: #### 5 7021-8 ####[facility] LABORATORYCLIA [id number] [address] [place] Lymphocytes (Bld) [#/Vol] 1.40 10*3/uL Normal 1.00-4.00 [facility] Comment on above: Order Comment: Speci men Type: BLOOD SPECIMENOrdering Facility: [facility] Address: [address] [place] [address] Performed By: #### 5 7021-8 ####[facility] LABORATORYCLIA [id number] [address] Lymphocytes/100 WBC (Bld) 15.8 % Normal [facility] Comment on above: Order Comment: Speci men Type: BLOOD SPECIMENOrdering Facility: [facility] Address: [address] [place] [address] Performed By: #### 5 7021-8 ####[facility] LABORATORYCLIA [id number] [address] MCH (RBC) [Entitic mass] 28.4 pg Normal 26.0-34.0 [facility] Comment on above: Order Comment: Speci men Type: BLOOD SPECIMENOrdering Facility: [facility] Address: [address] [place] [address] Performed By: #### 5 7021-8 ####[facility] LABORATORYCLIA [id number] [address] MCHC (RBC) [Mass/Vol] 30.8 g/dL Normal 30.5-36.0 [facility] Comment on above: Order Comment: Speci men Type: BLOOD SPECIMENOrdering Facility: [facility] Address: [address] [place] [address] Performed By: #### 5 7021-8 ####[facility] LABORATORYCLIA [id number] [address] MCV (RBC) [Entitic vol] 92.0 fL Normal 80.0-100.0 [facility] Comment on above: Order Comment: Speci men Type: BLOOD SPECIMENOrdering Facility: [facility] Address: [address] [place] [address] Performed By: #### 5 7021-8 ####[facility] LABORATORYCLIA [id number] [address] Monocytes (Bld) [#/Vol] 0.61 10*3/uL Normal <0.87 [facility] Comment on above: Order Comment: Speci men Type: BLOOD SPECIMENOrdering Facility: [facility] Address: [address] [address] Performed By: #### 5 7021-8 ####[facility]ORATORYCLIA [id number] [address] [place] Monocytes/100 WBC (Bld) 6.9 % Normal [facility] Comment on above: Order Comment: Speci men Type: BLOOD SPECIMENOrdering Facility: [facility] Address: [address] [place] [address] Performed By: #### 5 7021-8 ####[facility]ORATORYCLIA [id number] [place] [address] [place] Neutrophils (Bld) [#/Vol] 6.62 10*3/uL Normal 1.45-7.50 [facility] Comment on above: Order Comment: Speci men Type: BLOOD SPECIMENOrdering Facility: [facility] Address: [address] [place] [address] Performed By: #### 5 7021-8 ####[facility]ORATORYCLIA [id number] [address] [place] Neutrophils/100 WBC (Bld) 74.7 % Normal [facility] Comment on above: Order Comment: Speci men Type: BLOOD SPECIMENOrdering Facility: [facility] Address: [address] [place] [address] Performed By: #### 5 7021-8 ####[facility]ORATORYCLIA [id number] [place] [address] [place] Nucleated RBC (Bld) [#/Vol] 10*3/uL Normal <0.01 [facility] Comment on above: Order Comment: Speci men Type: BLOOD SPECIMENOrdering Facility: [facility] Address: [address] [place] [address] Performed By: #### 5 7021-8 ####[facility]ORATORYCLIA [id number] [place] [address] [place] Nucleated RBC/100 WBC (Bld) [Ratio] 0.0 /100 WBC Normal [facility] Comment on above: Order Comment: Speci men Type: BLOOD SPECIMENOrdering Facility: [facility] Address: [address] [place], [place] [address] Performed By: #### 5 7021-8 ####[facility] LABORATORYCLIA [id number] [address] [place] Platelet mean volume (Bld) [Entitic vol] 9.8 fL Normal 9.0-12.7 [facility] Comment on above: Order Comment: Speci men Type: BLOOD SPECIMENOrdering Facility: [facility] Address: [address] [place] [address] Performed By: #### 5 7021-8 ####[facility] LABORATORYCLIA [id number] [address] [place] Platelets (Bld) [#/Vol] 157 10*3/uL Normal 150-400 [facility] Comment on above: Order Comment: Speci men Type: BLOOD SPECIMENOrdering Facility: [facility] Address: [address] [place] [address] Performed By: #### 5 7021-8 ####[facility] LABORATORYCLIA [id number] [place] [address] [place] RBC (Bld) [#/Vol] 2.89 10*6/uL Low 4.20-6.00 [facility] Comment on above: Order Comment: Speci men Type: BLOOD SPECIMENOrdering Facility: [facility] Address: [address] [place], [place] [address] Performed By: #### 5 7021-8 ####[facility] LABORATORYCLIA [id number] [place] [address] [place] WBC (Bld) [#/Vol] 8.86 10*3/uL Normal 3.70-11.00 [facility] Comment on above: Order Comment: Speci men Type: BLOOD SPECIMENOrdering Facility: [facility] Address: [address] [place], [place] [address] Performed By: #### 5 7021-8 ####[facility] LABORATORYCLIA [id number] [address] STATES [facility] CBC panel Auto (Bld)on 08-11 Erythrocyte distribution width (RBC) [Ratio] 17.2 % High 11.5-15.0 [facility] Comment on above: Order Comment: Speci men Type: BLOOD SPECIMENOrdering Facility: [facility] Address: [address] [place] [address] Performed By: #### 5 8410-2 ####[facility] LABORATORYCLIA [id number] [address] Hematocrit (Bld) [Volume fraction] 27.0 % Low 39.0-51.0 [facility] Comment on above: Order Comment: Speci men Type: BLOOD SPECIMENOrdering Facility: [facility] Address: [address] [place] [address] Performed By: #### 5 8410-2 ####[facility] LABORATORYCLIA [id number] [address] Hemoglobin (Bld) [Mass/Vol] 8.3 g/dL Low 13.0-17.0 [facility] Comment on above: Order Comment: Speci men Type: BLOOD SPECIMENOrdering Facility: [facility] Address: [address] [place] [address] Performed By: #### 5 8410-2 ####[facility] LABORATORYCLIA [id number] [address] STATES [facility] MCH (RBC) [Entitic mass] 28.7 pg Normal 26.0-34.0 [facility] Comment on above: Order Comment: Speci men Type: BLOOD SPECIMENOrdering Facility: [facility] Address: [address] [place] [address] Performed By: #### 5 8410-2 ####[facility] LABORATORYCLIA [id number] [address] STATES [facility] MCHC (RBC) [Mass/Vol] 30.7 g/dL Normal 30.5-36.0 [facility] Comment on above: Order Comment: Speci men Type: BLOOD SPECIMENOrdering Facility: [facility] Address: [address] Performed By: #### 5 8410-2 ####[facility] LABORATORYCLIA [id number] [address] [place] MCV (RBC) [Entitic vol] 93.4 fL Normal 80.0-100.0 [facility] Comment on above: Order Comment: Speci men Type: BLOOD SPECIMENOrdering Facility: [facility] Address: [address] [place], [place] [address] Performed By: #### 5 8410-2 ####[facility] LABORATORYCLIA [id number] [address] [place] Nucleated RBC (Bld) [#/Vol] 10*3/uL Normal <0.01 [facility] Comment on above: Order Comment: Speci men Type: BLOOD SPECIMENOrdering Facility: [facility] Address: [address] [address] Performed By: #### 5 8410-2 ####[facility] LABORATORYCLIA [id number] [address] [place] Platelet mean volume (Bld) [Entitic vol] 9.8 fL Normal 9.0-12.7 [facility] Comment on above: Order Comment: Speci men Type: BLOOD SPECIMENOrdering Facility: [facility] Address: [address] Performed By: #### 5 8410-2 ####[facility] LABORATORYCLIA [id number] [address] [place] Platelets (Bld) [#/Vol] 169 10*3/uL Normal 150-400 [facility] Comment on above: Order Comment: Speci men Type: BLOOD SPECIMENOrdering Facility: [facility] Address: [address] Performed By: #### 5 8410-2 ####[facility] LABORATORYCLIA [id number] [address] STATES [place] [facility] RBC (Bld) [#/Vol] 2.89 10*6/uL Low 4.20-6.00 [facility] Comment on above: Order Comment: Shira feldman Type: BLOOD SPECIMENOrdering Facility: [facility] Address: [address] [place] [address] Performed By: #### 5 8410-2 ####[facility] LABORATORYCLIA [id number] [address] WBC (Bld) [#/Vol] 9.03 10*3/uL Normal 3.70-11.00 [facility] Comment on above: Order Comment: Shira feldman Type: BLOOD SPECIMENOrdering Facility: [facility] Address: [address] [place] [address] Performed By: #### 5 8410-2 ####[facility] LABORATORYCLIA [id number] [address] BRAIN WO IVCONon 08-12-19 CT BRAIN WO IVCON Normal [facility] PT panel Coag (PPP)on 2021 INR Coag (PPP) [Relative time] 1.0 {INR} Normal 0.9-1.3 [facility] Comment on above: Order Comment: Shira feldman Type: BLOOD SPECIMENOrdering Facility: [facility] Address: [address] [place] [address] Result Comment: Yris min K Antagonist (VKA) Therapeutic Range: INR 2 to 3 (Target INR of 2.5)Note: For patients treated with VKA drugs, such as warfarin, the [employer] 2012 Guideline recommends [...] al. Chest 2012, 141:7S-47SNishimura RA, et al. [facility] 2017, 70: 252-289 Performed By: #### 1 4979-9, 07359-1 ####[facility] LABORATORYCLIA [id number] [address] OF [facility] PT Coag (PPP) [Time] 11.4 s Normal 9.7-13.0 [facility] Comment on above: Order Comment: Speci men Type: BLOOD SPECIMENOrdering Facility: [facility] Address: [address] [address] Performed By: #### 1 4979-9, 23741-1 ####[facility] LABORATORYCLIA [id number] [address] THERAPY NTon 08-11-2021 THERAPY NT Normal [facility] US DVT LOWER BILon 2 US DVT LOWER RAINER Normal [facility] US DVT UPPER BILon 2 US DVT UPPER RAINER Normal [facility] aPTT PPPon 08-11-2021 aPTT Coag (PPP) [Time] 26.9 s Normal 23.0-32.4 [facility] Comment on above: Order Comment: Speci men Type: BLOOD SPECIMENOrdering Facility: [facility] Address: [address] [address] Performed By: #### 1 4979-9, 60571-1 ####[facility] LABORATORYCLIA [id number] [address] [place] Basic metabolic 2000 panelon 08-10-2021 Anion gap [Moles/Vol] 11 mmol/L Normal 9-18 [facility] Comment on above: Order Comment: Speci men Type: BLOOD SPECIMENOrdering Facility: [facility] Address: [address] [address] Performed By: #### 2 4321-2 ####[facility]ORATORYCLIA [id number] [place] [address] [place] Calcium [Mass/Vol] 8.7 mg/dL Normal 8.5-10.2 [facility] Comment on above: Order Comment: Speci men Type: BLOOD SPECIMENOrdering Facility: [facility] Address: [address] [place] [address] Performed By: #### 2 4321-2 ####[facility]ORATORYCLIA [id number] [place] [address] [place] Chloride [Moles/Vol] 98 mmol/L Normal 97-105 [facility] Comment on above: Order Comment: Speci men Type: BLOOD SPECIMENOrdering Facility: [facility] Address: [address] [place] [address] Performed By: #### 2 4321-2 ####[facility] LABORATORYCLIA [id number] [address] [place] CO2 [Moles/Vol] 28 mmol/L Normal 22-30 [facility] Comment on above: Order Comment: Speci men Type: BLOOD SPECIMENOrdering Facility: [facility] Address: [address] [place] [address] Performed By: #### 2 4321-2 ####[facility] LABORATORYCLIA [id number] [address] [place] Creatinine [Mass/Vol] 0.59 mg/dL Low 0.73-1.22 [facility] Comment on above: Order Comment: Speci men Type: BLOOD SPECIMENOrdering Facility: [facility] Address: [address] [place] [address] Performed By: #### 2 4321-2 ####[facility] LABORATORYCLIA [id number] [address] ESTIMATED GLOMERULAR FILTRATION RATE 105 mL/min/1.73m??? Normal >=60 [facility] Comment on above: Order Comment: Speci men Type: BLOOD SPECIMENOrdering Facility: [facility] Address: [address] [id number] Result Comment: Luzmaria mated Glomerular Filtration Rate [...] GFR. Performed By: #### 2 4321-2 ####[facility] H[facility]PITALIA [id number] [place] [address] [place] Glucose [Mass/Vol] 118 mg/dL High 74-99 [facility] Comment on above: Order Comment: Shira feldman Type: BLOOD SPECIMENOrdering Facility: [facility] Address: [address] [address] Result Comment: The [place] [employer] (ADA) provides guidance for cutoff [...] Standards of Medical Care in Diabetes 2016, [place] [employer]. Diabetes Care. 2016.39(Suppl 1). Performed By: #### 2 4321-2 ####[facility] LABORATORYCLIA [id number] [place] [address] [place] Potassium [Moles/Vol] 3.7 mmol/L Normal 3.7-5.1 [facility] Comment on above: Order Comment: Shira feldman Type: BLOOD SPECIMENOrdering Facility: [facility] Address: [address] [id number] Performed By: #### 2 4321-2 ####[facility] LABORATORYCLIA [id number] [place] [id number] [place] Sodium [Moles/Vol] 137 mmol/L Normal 136-144 [facility] Comment on above: Order Comment: Speci men Type: BLOOD SPECIMENOrdering Facility: [facility] Address: [address] [place] [address] Performed By: #### 2 4321-2 ####[facility] LABORATORYCLIA [id number] [place] [address] [place] Urea nitrogen [Mass/Vol] 23 mg/dL Normal 9-24 [facility] Comment on above: Order Comment: Speci men Type: BLOOD SPECIMENOrdering Facility: [facility] Address: [address] [place] [address] Performed By: #### 2 4321-2 ####[facility] LABORATORYCLIA [id number] [place] [address] [place] Anion gap [Moles/Vol] 17 mmol/L Normal 9-18 [facility] Comment on above: Order Comment: Speci men Type: BLOOD SPECIMENOrdering Facility: [facility] Address: [address] [place] [address] Performed By: #### 1 9123-9, 2777-1, 00440-5 ####[facility] LABORATORYCLIA [id number] [place] [address] [place] Calcium [Mass/Vol] 7.7 mg/dL Low 8.5-10.2 [facility] Comment on above: Order Comment: Speci men Type: BLOOD SPECIMENOrdering Facility: [facility] Address: [address] [place] [address] Performed By: #### 1 9123-9, 2777-1, 64492-2 ####[facility] LABORATORYCLIA [id number] [place] [address] [place] Chloride [Moles/Vol] 86 mmol/L Low 97-105 [facility] Comment on above: Order Comment: Speci men Type: BLOOD SPECIMENOrdering Facility: [facility] Address: [address] [place] [address] Performed By: #### 1 9123-9, 2777, 38434-9 ####[facility] LABORATORYCLIA [id number] [place] [address] [place] CO2 [Moles/Vol] 24 mmol/L Normal 22-30 [facility] Comment on above: Order Comment: Speci men Type: BLOOD SPECIMENOrdering Facility: [facility] Address: [address] [place] [address] Performed By: #### 1 9123-9, 27711-04, ####[facility] LABORATORYCLIA [id number] [place] [address] [place] [facility] Creatinine [Mass/Vol] 0.53 mg/dL Low 0.73-1.22 [facility] Comment on above: Order Comment: Speci men Type: BLOOD SPECIMENOrdering Facility: [facility] Address: [address] [place] [address] Performed By: #### 1 9123-9, 2776-05, ####[facility] SERVICESCLIA [id number] [address] STATES [facility] ESTIMATED GLOMERULAR FILTRATION RATE 108 mL/min/1.73m??? Normal >=60 [facility] Comment on above: Order Comment: Speci men Type: BLOOD SPECIMENOrdering Facility: [facility] Address: [address] [place] [address] Result Comment: Luzmaria mated Glomerular Filtration Rate [...] GFR. Performed By: #### 1 9123-9, 2777, 12436-6 ####[facility] LABORATORYCLIA [id number] [place] [address] [place] Glucose [Mass/Vol] 455 mg/dL High 74-99 [facility] Comment on above: Order Comment: Shira feldman Type: BLOOD SPECIMENOrdering Facility: [facility] Address: [address] [place], [place] [address] Result Comment: The [place] [employer] (ADA) provides guidance for cutoff [...] Standards of Medical Care in Diabetes 2016, [place] [employer]. Diabetes Care. 2016.39(Suppl 1). Performed By: #### 1 9123-9, 2777-, 15443-7 ####[facility] LABORATORYCLIA [id number] [place] [address] [place] Potassium [Moles/Vol] 3.4 mmol/L Low 3.7-5.1 [facility] Comment on above: Order Comment: Shira feldman Type: BLOOD SPECIMENOrdering Facility: [facility] Address: [address] [place], [place] [address] Performed By: #### 1 9123-9, 2777-1, 43098-5 ####[facility] LABORATORYCLIA [id number] [place] [address] [place] Sodium [Moles/Vol] 127 mmol/L Low 136-144 [facility] Comment on above: Order Comment: Shira feldman Type: BLOOD SPECIMENOrdering Facility: [facility] Address: [address] [place], [place] [address] Performed By: #### 1 9123-9, 2777-, 80857-0 ####[facility] LABORATORYCLIA [id number] [place] [address] [place] Urea nitrogen [Mass/Vol] 21 mg/dL Normal 9-24 [facility] Comment on above: Order Comment: Speci men Type: BLOOD SPECIMENOrdering Facility: [facility] Address: [address] [place] [address] Performed By: #### 1 9123-9, 2777-1, 35899-3 ####[facility] LABORATORYCLIA [id number] [address] [place] CASE MANAGEMon 08-10-2021 CASE MANAGEM Normal [facility] CBC W Auto Differential pane l (Bld)on 08-10-2021 Basophils (Bld) [#/Vol] 0.04 10*3/uL Normal <0.11 [facility] Comment on above: Order Comment: Speci men Type: BLOOD SPECIMENOrdering Facility: [facility] Address: [address] [place] [address] Performed By: #### 5 7021-8 ####[facility] LABORATORYCLIA [id number] [address] [place] Basophils/100 WBC (Bld) 0.4 % Normal [facility] Comment on above: Order Comment: Speci men Type: BLOOD SPECIMENOrdering Facility: [facility] Address: [address] [place] [address] Performed By: #### 5 7021-8 ####[facility] LABORATORYCLIA [id number] [address] [place] Differential cell count method Nom (Bld) Auto Normal [facility] Comment on above: Order Comment: Speci men Type: BLOOD SPECIMENOrdering Facility: [facility] Address: [address] [place] [address] Performed By: #### 5 7021-8 ####[facility] LABORATORYCLIA [id number] [place] [address] [place] Eosinophils (Bld) [#/Vol] 0.11 10*3/uL Normal <0.46 [facility] Comment on above: Order Comment: Speci men Type: BLOOD SPECIMENOrdering Facility: [facility] Address: [address] [place] [address] Performed By: #### 5 7021-8 ####[facility] LABORATORYCLIA [id number] [address] STATES [facility] Eosinophils/100 WBC (Bld) 1.1 % Normal [facility] Comment on above: Order Comment: Speci men Type: BLOOD SPECIMENOrdering Facility: [facility] Address: [address] [place] [address] Performed By: #### 5 7021-8 ####[facility] LABORATORYCLIA [id number] [address] [place] Erythrocyte distribution width (RBC) [Ratio] 17.2 % High 11.5-15.0 [facility] Comment on above: Order Comment: Speci men Type: BLOOD SPECIMENOrdering Facility: [facility] Address: [address] [place] [address] Performed By: #### 5 7021-8 ####[facility] LABORATORYCLIA [id number] [address] Hematocrit (Bld) [Volume fraction] 25.5 % Low 39.0-51.0 [facility] Comment on above: Order Comment: Speci men Type: BLOOD SPECIMENOrdering Facility: [facility] Address: [address] [place] [address] Performed By: #### 5 7021-8 ####[facility] LABORATORYCLIA [id number] [address] [place] Hemoglobin (Bld) [Mass/Vol] 7.9 g/dL Low 13.0-17.0 [facility] Comment on above: Order Comment: Speci men Type: BLOOD SPECIMENOrdering Facility: [facility] Address: [address] [place] [address] Performed By: #### 5 7021-8 ####[facility] LABORATORYCLIA [id number] [address] [place] IMMATURE GRAN % 0.4 % Normal [facility] Comment on above: Order Comment: Speci men Type: BLOOD SPECIMENOrdering Facility: [facility] Address: [address] [place] [address] Performed By: #### 5 7021-8 ####[facility] LABORATORYCLIA [id number] [address] STATES [facility] IMMATURE GRAN ABS 0.04 k/uL Normal <0.10 [facility] Comment on above: Order Comment: Speci men Type: BLOOD SPECIMENOrdering Facility: [facility] Address: [address] [place] [address] Performed By: #### 5 7021-8 ####[facility] LABORATORYCLIA [id number] [address] Lymphocytes (Bld) [#/Vol] 1.66 10*3/uL Normal 1.00-4.00 [facility] Comment on above: Order Comment: Speci men Type: BLOOD SPECIMENOrdering Facility: [facility] Address: [address] [place] [address] Performed By: #### 5 7021-8 ####[facility] LABORATORYCLIA [id number] [address] Lymphocytes/100 WBC (Bld) 16.2 % Normal [facility] Comment on above: Order Comment: Speci men Type: BLOOD SPECIMENOrdering Facility: [facility] Address: [address] [place] [address] Performed By: #### 5 7021-8 ####[facility] LABORATORYCLIA [id number] [address] MCH (RBC) [Entitic mass] 28.5 pg Normal 26.0-34.0 [facility] Comment on above: Order Comment: Speci men Type: BLOOD SPECIMENOrdering Facility: [facility] Address: [address] [place] [address] Performed By: #### 5 7021-8 ####[facility] LABORATORYCLIA [id number] [address] MCHC (RBC) [Mass/Vol] 31.0 g/dL Normal 30.5-36.0 [facility] Comment on above: Order Comment: Speci men Type: BLOOD SPECIMENOrdering Facility: [facility] Address: [address] [place] [address] Performed By: #### 5 7021-8 ####[facility] LABORATORYCLIA [id number] [address] [place] [facility] MCV (RBC) [Entitic vol] 92.1 fL Normal 80.0-100.0 [facility] Comment on above: Order Comment: Speci men Type: BLOOD SPECIMENOrdering Facility: [facility] Address: [address] [place] [address] Performed By: #### 5 7021-8 ####[facility] LABORATORYCLIA [id number] [address] [place] Monocytes (Bld) [#/Vol] 0.51 10*3/uL Normal <0.87 [facility] Comment on above: Order Comment: Speci men Type: BLOOD SPECIMENOrdering Facility: [facility] Address: [address] [place] [address] Performed By: #### 5 7021-8 ####[facility] LABORATORYCLIA [id number] [address] Monocytes/100 WBC (Bld) 5.0 % Normal [facility] Comment on above: Order Comment: Speci men Type: BLOOD SPECIMENOrdering Facility: [facility] Address: [address] [place] [address] Performed By: #### 5 7021-8 ####[facility] LABORATORYCLIA [id number] [address] [place] Neutrophils (Bld) [#/Vol] 7.91 10*3/uL High 1.45-7.50 [facility] Comment on above: Order Comment: Speci men Type: BLOOD SPECIMENOrdering Facility: [facility] Address: [address] [place] [address] Performed By: #### 5 7021-8 ####[facility]ORATORYCLIA [id number] [address] [place] Neutrophils/100 WBC (Bld) 76.9 % Normal [facility] Comment on above: Order Comment: Speci men Type: BLOOD SPECIMENOrdering Facility: [facility] Address: [address] [place] [address] Performed By: #### 5 7021-8 ####[facility]ORATORYCLIA [id number] [address] Nucleated RBC (Bld) [#/Vol] 10*3/uL Normal <0.01 [facility] Comment on above: Order Comment: Speci men Type: BLOOD SPECIMENOrdering Facility: [facility] Address: [address] [place] [address] Performed By: #### 5 7021-8 ####[facility] LABORATORYCLIA [id number] [address] Nucleated RBC/100 WBC (Bld) [Ratio] 0.0 /100 WBC Normal [facility] Comment on above: Order Comment: Speci men Type: BLOOD SPECIMENOrdering Facility: [facility] Address: [address] [place] [address] Performed By: #### 5 7021-8 ####[facility] LABORATORYCLIA [id number] [address] [place] Platelet mean volume (Bld) [Entitic vol] 10.3 fL Normal 9.0-12.7 [facility] Comment on above: Order Comment: Speci men Type: BLOOD SPECIMENOrdering Facility: [facility] Address: [address] [place] [address] Performed By: #### 5 7021-8 ####[facility] LABORATORYCLIA [id number] [address] [place] Platelets (Bld) [#/Vol] 152 10*3/uL Normal 150-400 [facility] Comment on above: Order Comment: Speci men Type: BLOOD SPECIMENOrdering Facility: [facility] Address: [address] [place] [address] Performed By: #### 5 7021-8 ####[facility] LABORATORYCLIA [id number] [address] RBC (Bld) [#/Vol] 2.77 10*6/uL Low 4.20-6.00 [facility] Comment on above: Order Comment: Speci men Type: BLOOD SPECIMENOrdering Facility: [facility] Address: [address] [place] [address] Performed By: #### 5 7021-8 ####[facility] LABORATORYCLIA [id number] [address] WBC (Bld) [#/Vol] 10.27 10*3/uL Normal 3.70-11.00 [facility] Comment on above: Order Comment: Speci men Type: BLOOD SPECIMENOrdering Facility: [facility] Address: [address] [place] [address] Performed By: #### 5 7021-8 ####[facility] LABORATORYCLIA [id number] [address] Magnesium SerPl-mCncon 08-10 Magnesium [Mass/Vol] 1.8 mg/dL Normal 1.7-2.3 [facility] Comment on above: Order Comment: Speci men Type: BLOOD SPECIMENOrdering Facility: [facility] Address: [address] [place] [address] Performed By: #### 1 9123-9, 2777-1, 47414-0 ####[facility] LABORATORYCLIA [id number] [address] OF [facility] NURSING PROGon 08-10-2021 NURSING PROG Normal [facility] NURSING PROG Normal [facility] NUTRITIONon 08-10-2021 NUTRITION Normal [facility] Phosphate SerPl-mCncon 08-10 Phosphate [Mass/Vol] 3.7 mg/dL Normal 2.7-4.8 [facility] Comment on above: Order Comment: Speci men Type: BLOOD SPECIMENOrdering Facility: [facility] Address: [address] [place] [address] Performed By: #### 1 9123-9, 2776-, 24156-9 ####[facility] LABORATORYCLIA [id number] [place] [address] [place] ALLIED HEALTHon 08-09-2021 ALLIED HEALTH Normal [facility] ANES POSTPROC EVALon 022 ANES POSTPROC EVAL Normal [facility] ANES PRE-OPon 08-09-2021 ANES PRE-OP Normal [facility] BRIEF OP NOTon 08-09-2021 BRIEF OP NOT Normal [facility] Basic metabolic 2000 panelon 08-09-2021 Anion gap [Moles/Vol] 8 mmol/L Low 9-18 [facility] Comment on above: Order Comment: Speci men Type: BLOOD SPECIMENOrdering Facility: [facility] Address: [address] [place] [address] Performed By: #### 2 4321-2, , 2776-05 ####[facility] LABORATORYCLIA [id number] [place] [address] [place] Calcium [Mass/Vol] 9.2 mg/dL Normal 8.5-10.2 [facility] Comment on above: Order Comment: Speci men Type: BLOOD SPECIMENOrdering Facility: [facility] Address: [address] [place] [address] Performed By: #### 2 4321-2, , 2776-05 ####[facility] LABORATORYCLIA [id number] [place] [address] [place] Chloride [Moles/Vol] 97 mmol/L Normal 97-105 [facility] Comment on above: Order Comment: Speci men Type: BLOOD SPECIMENOrdering Facility: [facility] Address: [address] [place] [address] Performed By: #### 2 4321-2, , 2776-05 ####[facility] LABORATORYCLIA [id number] [place] [address] [place] CO2 [Moles/Vol] 30 mmol/L Normal 22-30 [facility] Comment on above: Order Comment: Speci men Type: BLOOD SPECIMENOrdering Facility: [facility] Address: [address] [place] [address] Performed By: #### 2 4321-2, , 2776-05 ####[facility] SERVICESCLIA [id number] [place] [address] [place] [facility] Creatinine [Mass/Vol] 0.51 mg/dL Low 0.73-1.22 [facility] Comment on above: Order Comment: Speci men Type: BLOOD SPECIMENOrdering Facility: [facility] Address: [address] [place] [address] Performed By: #### 2 432-2, , 2776-05 ####[facility]PITALIA [id number] [address] ESTIMATED GLOMERULAR FILTRATION RATE 110 mL/min/1.73m??? Normal >=60 [facility] Comment on above: Order Comment: Speci men Type: BLOOD SPECIMENOrdering Facility: [facility] Address: [address] [place] [address] Result Comment: Luzmaria mated Glomerular Filtration Rate [...] Performed By: #### 2 4321-2, , 2776-05 ####[facility] LABORATORYCLIA [id number] [place] [address] [place] Glucose [Mass/Vol] 106 mg/dL High 74-99 [facility] Comment on above: Order Comment: Speci men Type: BLOOD SPECIMENOrdering Facility: [facility] Address: [address] [place] [address] Result Comment: The [place] [employer] (ADA) provides guidance for cutoff [...] Standards of Medical Care in Diabetes 2016, [place] [employer]. Diabetes Care. 2016.39(Suppl 1). Performed By: #### 2 4321-2, , 2776-05 ####[facility] LABORATORYCLIA [id number] [place] [address] [place] Potassium [Moles/Vol] 4.1 mmol/L Normal 3.7-5.1 [facility] Comment on above: Order Comment: Speccara feldman Type: BLOOD SPECIMENOrdering Facility: [facility] Address: [address] [place], [place] [address] Performed By: #### 2 4321-2, , 2776-05 ####[facility] LABORATORYCLIA [id number] [place] [address] [place] Sodium [Moles/Vol] 135 mmol/L Low 136-144 [facility] Comment on above: Order Comment: Speci men Type: BLOOD SPECIMENOrdering Facility: [facility] Address: [address] [place], [place] [address] Performed By: #### 2 4321-2, , 2776-05 ####[facility] LABORATORYCLIA [id number] [place] [address] [place] Urea nitrogen [Mass/Vol] 26 mg/dL High 9-24 [facility] Comment on above: Order Comment: Speci men Type: BLOOD SPECIMENOrdering Facility: [facility] Address: [address] [place] [address] Performed By: #### 2 4321-2, 52452-3, 2777-1 ####[facility] LABORATORYCLIA [id number] [address] STATES [facility] CBC W Auto Differential pane l (Bld)on 08-09-2021 Basophils (Bld) [#/Vol] 0.06 10*3/uL Normal <0.11 [facility] Comment on above: Order Comment: Speci men Type: BLOOD SPECIMENOrdering Facility: [facility] Address: [address] [place] [address] Performed By: #### 5 7021-8 ####[facility] LABORATORYCLIA [id number] [address] [place] Basophils/100 WBC (Bld) 0.5 % Normal [facility] Comment on above: Order Comment: Speci men Type: BLOOD SPECIMENOrdering Facility: [facility] Address: [address] [place] [address] Performed By: #### 5 7021-8 ####[facility] LABORATORYCLIA [id number] [address] Differential cell count method Nom (Bld) Auto Normal [facility] Comment on above: Order Comment: Speci men Type: BLOOD SPECIMENOrdering Facility: [facility] Address: [address] [place] [address] Performed By: #### 5 7021-8 ####[facility] LABORATORYCLIA [id number] [address] [place] Eosinophils (Bld) [#/Vol] 0.42 10*3/uL Normal <0.46 [facility] Comment on above: Order Comment: Speci men Type: BLOOD SPECIMENOrdering Facility: [facility] Address: [address] [place] [address] Performed By: #### 5 7021-8 ####[facility] LABORATORYCLIA [id number] [address] Eosinophils/100 WBC (Bld) 3.8 % Normal [facility] Comment on above: Order Comment: Speci men Type: BLOOD SPECIMENOrdering Facility: [facility] Address: [address] [place] [address] Performed By: #### 5 7021-8 ####[facility] LABORATORYCLIA [id number] [address] Erythrocyte distribution width (RBC) [Ratio] 17.6 % High 11.5-15.0 [facility] Comment on above: Order Comment: Speci men Type: BLOOD SPECIMENOrdering Facility: [facility] Address: [address] [place] [address] Performed By: #### 5 7021-8 ####[facility] LABORATORYCLIA [id number] [address] Hematocrit (Bld) [Volume fraction] 29.3 % Low 39.0-51.0 [facility] Comment on above: Order Comment: Speci men Type: BLOOD SPECIMENOrdering Facility: [facility] Address: [address] [place] [address] Performed By: #### 5 7021-8 ####[facility] LABORATORYCLIA [id number] [address] OF [facility] Hemoglobin (Bld) [Mass/Vol] 9.0 g/dL Low 13.0-17.0 [facility] Comment on above: Order Comment: Speci men Type: BLOOD SPECIMENOrdering Facility: [facility] Address: [address] [place] [address] Performed By: #### 5 7021-8 ####[facility] LABORATORYCLIA [id number] [address] IMMATURE GRAN % 0.5 % Normal [facility] Comment on above: Order Comment: Speci men Type: BLOOD SPECIMENOrdering Facility: [facility] Address: [address] [place] [address] Performed By: #### 5 7021-8 ####[facility] LABORATORYCLIA [id number] [address] IMMATURE GRAN ABS 0.05 k/uL Normal <0.10 [facility] Comment on above: Order Comment: Speci men Type: BLOOD SPECIMENOrdering Facility: [facility] Address: [address] [place] [address] Performed By: #### 5 7021-8 ####[facility] LABORATORYCLIA [id number] [address] Lymphocytes (Bld) [#/Vol] 2.00 10*3/uL Normal 1.00-4.00 [facility] Comment on above: Order Comment: Speci men Type: BLOOD SPECIMENOrdering Facility: [facility] Address: [address] [place] [address] Performed By: #### 5 7021-8 ####[facility] LABORATORYCLIA [id number] [address] Lymphocytes/100 WBC (Bld) 18.1 % Normal [facility] Comment on above: Order Comment: Speci men Type: BLOOD SPECIMENOrdering Facility: [facility] [facility] Address: [address] [place] [address] Performed By: #### 5 7021-8 ####[facility] LABORATORYCLIA [id number] [address] MCH (RBC) [Entitic mass] 28.1 pg Normal 26.0-34.0 [facility] Comment on above: Order Comment: Speci men Type: BLOOD SPECIMENOrdering Facility: [facility] Address: [address] [place] [address] Performed By: #### 5 7021-8 ####[facility] LABORATORYCLIA [id number] [address] MCHC (RBC) [Mass/Vol] 30.7 g/dL Normal 30.5-36.0 [facility] Comment on above: Order Comment: Speci men Type: BLOOD SPECIMENOrdering Facility: [facility] Address: [address] [place] [address] Performed By: #### 5 7021-8 ####[facility] LABORATORYCLIA [id number] [address] [facility] MCV (RBC) [Entitic vol] 91.6 fL Normal 80.0-100.0 [facility] Comment on above: Order Comment: Speci men Type: BLOOD SPECIMENOrdering Facility: [facility] Address: [address] [place] [address] Performed By: #### 5 7021-8 ####[facility] LABORATORYCLIA [id number] [address] Monocytes (Bld) [#/Vol] 0.68 10*3/uL Normal <0.87 [facility] Comment on above: Order Comment: Speci men Type: BLOOD SPECIMENOrdering Facility: [facility] Address: [address] [place] [address] Performed By: #### 5 7021-8 ####[facility] LABORATORYCLIA [id number] [address] STATES [facility] Monocytes/100 WBC (Bld) 6.2 % Normal [facility] Comment on above: Order Comment: Speci men Type: BLOOD SPECIMENOrdering Facility: [facility] Address: [address] [place] [address] Performed By: #### 5 7021-8 ####[facility] LABORATORYCLIA [id number] [address] [place] Neutrophils (Bld) [#/Vol] 7.82 10*3/uL High 1.45-7.50 [facility] Comment on above: Order Comment: Speci men Type: BLOOD SPECIMENOrdering Facility: [facility] Address: [address] [place] [address] Performed By: #### 5 7021-8 ####[facility] LABORATORYCLIA [id number] [address] [place] Neutrophils/100 WBC (Bld) 70.9 % Normal [facility] Comment on above: Order Comment: Speci men Type: BLOOD SPECIMENOrdering Facility: [facility] Address: [address] [place] [address] Performed By: #### 5 7021-8 ####[facility] LABORATORYCLIA [id number] [place] [address] [place] Nucleated RBC (Bld) [#/Vol] 10*3/uL Normal <0.01 [facility] Comment on above: Order Comment: Speci men Type: BLOOD SPECIMENOrdering Facility: [facility] Address: [address] [place] [address] Performed By: #### 5 7021-8 ####[facility] LABORATORYCLIA [id number] [place] [address] [place] Nucleated RBC/100 WBC (Bld) [Ratio] 0.0 /100 WBC Normal [facility] Comment on above: Order Comment: Speci men Type: BLOOD SPECIMENOrdering Facility: [facility] Address: [address] [place] [address] Performed By: #### 5 7021-8 ####[facility] LABORATORYCLIA [id number] [place] [address] [place] Platelet mean volume (Bld) [Entitic vol] 10.1 fL Normal 9.0-12.7 [facility] Comment on above: Order Comment: Speci men Type: BLOOD SPECIMENOrdering Facility: [facility] Address: [address] [place], [place] [address] Performed By: #### 5 7021-8 ####[facility] LABORATORYCLIA [id number] [place] [address] [place] Platelets (Bld) [#/Vol] 160 10*3/uL Normal 150-400 [facility] Comment on above: Order Comment: Speci men Type: BLOOD SPECIMENOrdering Facility: [facility] Address: [address] [place], [place] [address] Performed By: #### 5 7021-8 ####[facility] LABORATORYCLIA [id number] [address] [place] RBC (Bld) [#/Vol] 3.20 10*6/uL Low 4.20-6.00 [facility] Comment on above: Order Comment: Speci men Type: BLOOD SPECIMENOrdering Facility: [facility] Address: [address] [place] [address] Performed By: #### 5 7021-8 ####[facility] LABORATORYCLIA [id number] [address] STATES [facility] WBC (Bld) [#/Vol] 11.03 10*3/uL High 3.70-11.00 [facility] Comment on above: Order Comment: Speci men Type: BLOOD SPECIMENOrdering Facility: [facility] Address: [address] [place] [address] Performed By: #### 5 7021-8 ####[facility] LABORATORYCLIA [id number] [address] CONSULT PROGon 08-09-2021 CONSULT PROG Normal [facility] CT BRAIN WO IVCONon 08-10-19 CT BRAIN WO IVCON Normal [facility] CT BRAIN WO IVCON Normal [facility] Magnesium SerPl-mCncon 08-09 Magnesium [Mass/Vol] 2.0 mg/dL Normal 1.7-2.3 [facility] Comment on above: Order Comment: Speci men Type: BLOOD SPECIMENOrdering Facility: [facility] Address: [address] [place] [address] Performed By: #### 2 4321-2, 06291-5, 2777-1 ####[facility] LABORATORYCLIA [id number] [address] NURSING PROGon 08-09-2021 NURSING PROG Normal [facility] OPERATIVE NOon 08-09-2021 OPERATIVE NO Normal [facility] PT panel Coag (PPP)on 2021 INR Coag (PPP) [Relative time] 1.1 {INR} Normal 0.9-1.3 [facility] Comment on above: Order Comment: Shira feldman Type: BLOOD SPECIMENOrdering Facility: [facility] Address: [address] [phone] Result Comment: Yris min K Antagonist (VKA) Therapeutic Range: INR 2 to 3 (Target INR of 2.5)Note: For patients treated with VKA drugs, such as warfarin, the [place] [employer] 2012 Guideline recommends [...] al. Chest 2012, 141:7S-47SNishimpatricia RA, et al. [facility] 2017, 70: 252-289 Performed By: #### 3 4528-0, 41049-5 ####[facility] LABORATORYCLIA [id number] [place] [address] [place] PT Coag (PPP) [Time] 11.7 s Normal 9.7-13.0 [facility] Comment on above: Order Comment: Shira feldman Type: BLOOD SPECIMENOrdering Facility: [facility] Address: [address] [phone] Performed By: #### 3 4528-0, 43062-5 ####[facility] LABORATORYCLIA [id number] [place] [address] [place] Phosphate SerPl-mCncon 08-09 Phosphate [Mass/Vol] 4.0 mg/dL Normal 2.7-4.8 [facility] Comment on above: Order Comment: Shira feldman Type: BLOOD SPECIMENOrdering Facility: [facility] Address: [address] [address] Performed By: #### 2 4321-2, 88536-2, 2777-1 ####[facility] LABORATORYCLIA [id number] [address] [facility] THERAPY NTon 08-09-2021 THERAPY NT Normal [facility] THERAPY NT Normal [facility] TYPE AND SCREENon 08-09-2021 ABO O Normal [facility] Comment on above: Order Comment: Speci men Type: BLOOD SPECIMENOrdering Facility: [facility] Address: [address] [place] [address] Performed By: #### T SCR ####[facility] BLOOD BANKCLIA [id number] [address] HISTORICAL AB SCR STATUS Negative [facility] Comment on above: Order Comment: Speci men Type: BLOOD SPECIMENOrdering Facility: [facility] Address: [address] [place] [address] Performed By: #### T SCR ####[facility] BLOOD BANKCLIA [id number] [address] Rh Nom (Bld) Positive [facility] Comment on above: Order Comment: Speci men Type: BLOOD SPECIMENOrdering Facility: [facility] Address: [address] [place] [address] Performed By: #### T SCR ####[facility] BLOOD BANKCLIA [id number] [address] TYPE AND SCREEN EXPIRATION 08/12/2021 23:59 Normal [facility] Comment on above: Order Comment: Speci men Type: BLOOD SPECIMENOrdering Facility: [facility] Address: [address] [place] [address] Performed By: #### T SCR ####[facility] BLOOD BANKCLIA [id number] [address] [place] XR ABD 2V SUPINE W UPR/DECUB /CTLon 08-09-2021 XR ABD 2V SUPINE W UPR/DECUB/CTL Normal [facility] XR CHEST 1V FRONTALon 2021 XR CHEST 1V FRONTAL Normal [facility] XR NECK SOFT TISSUE 2V AP/LA Ton 08-09-2021 XR NECK SOFT TISSUE 2V AP/LAT Normal [facility] XR SKULL 2V AP/LATon 022 XR SKULL 2V AP/LAT Normal [facility] aPTT PPPon 08-09-2021 aPTT Coag (PPP) [Time] 26.8 s Normal 23.0-32.4 [facility] Comment on above: Order Comment: Speci men Type: BLOOD SPECIMENOrdering Facility: [facility] Address: [address] [place] [address] Performed By: #### 3 4528-0, 10154-2 ####[facility] LABORATORYCLIA [id number] [place] [address] [place] CASE MANAGEMon 08-08-2021 CASE MANAGEM Normal [facility] CBC W Auto Differential pane l (Bld)on 08-08-2021 Basophils (Bld) [#/Vol] 0.05 10*3/uL Normal <0.11 [facility] Comment on above: Order Comment: Speci men Type: BLOOD SPECIMENOrdering Facility: [facility] Address: [address] [place] [address] Performed By: #### 5 7021-8 ####[facility] LABORATORYCLIA [id number] [address] [place] Basophils/100 WBC (Bld) 0.5 % Normal [facility] Comment on above: Order Comment: Speci men Type: BLOOD SPECIMENOrdering Facility: [facility] Address: [address] [place] [address] Performed By: #### 5 7021-8 ####[facility] LABORATORYCLIA [id number] [address] [place] Differential cell count method Nom (Bld) Auto Normal [facility] Comment on above: Order Comment: Speci men Type: BLOOD SPECIMENOrdering Facility: [facility] Address: [address] [address] Performed By: #### 5 7021-8 ####[facility] LABORATORYCLIA [id number] [address] [place] Eosinophils (Bld) [#/Vol] 0.17 10*3/uL Normal <0.46 [facility] Comment on above: Order Comment: Speci men Type: BLOOD SPECIMENOrdering Facility: [facility] Address: [address] [place] [address] Performed By: #### 5 7021-8 ####[facility] LABORATORYCLIA [id number] [address] Eosinophils/100 WBC (Bld) 1.6 % Normal [facility] Comment on above: Order Comment: Speci men Type: BLOOD SPECIMENOrdering Facility: [facility] Address: [address] [place] [address] Performed By: #### 5 7021-8 ####[facility] LABORATORYCLIA [id number] [address] Erythrocyte distribution width (RBC) [Ratio] 17.8 % High 11.5-15.0 [facility] Comment on above: Order Comment: Speci men Type: BLOOD SPECIMENOrdering Facility: [facility] Address: [address] [place] [address] Performed By: #### 5 7021-8 ####[facility] LABORATORYCLIA [id number] [address] [place] Hematocrit (Bld) [Volume fraction] 29.6 % Low 39.0-51.0 [facility] Comment on above: Order Comment: Speci men Type: BLOOD SPECIMENOrdering Facility: [facility] Address: [address] [place] [address] Performed By: #### 5 7021-8 ####[facility] LABORATORYCLIA [id number] [address] [place] Hemoglobin (Bld) [Mass/Vol] 9.0 g/dL Low 13.0-17.0 [facility] Comment on above: Order Comment: Speci men Type: BLOOD SPECIMENOrdering Facility: [facility] Address: [address] [place] [address] Performed By: #### 5 7021-8 ####[facility] LABORATORYCLIA [id number] [address] IMMATURE GRAN % 0.5 % Normal [facility] Comment on above: Order Comment: Speci men Type: BLOOD SPECIMENOrdering Facility: [facility] Address: [address] [place] [address] Performed By: #### 5 7021-8 ####[facility] LABORATORYCLIA [id number] [address] IMMATURE GRAN ABS 0.05 k/uL Normal <0.10 [facility] Comment on above: Order Comment: Speci men Type: BLOOD SPECIMENOrdering Facility: [facility] Address: [address] [place] [address] Performed By: #### 5 7021-8 ####[facility] LABORATORYCLIA [id number] [address] Lymphocytes (Bld) [#/Vol] 1.93 10*3/uL Normal 1.00-4.00 [facility] Comment on above: Order Comment: Speci men Type: BLOOD SPECIMENOrdering Facility: [facility] Address: [address] [place] [address] Performed By: #### 5 7021-8 ####[facility] LABORATORYCLIA [id number] [address] Lymphocytes/100 WBC (Bld) 18.2 % Normal [facility] Comment on above: Order Comment: Speci men Type: BLOOD SPECIMENOrdering Facility: [facility] Address: [address] [place] [address] Performed By: #### 5 7021-8 ####[facility] LABORATORYCLIA [id number] [address] MCH (RBC) [Entitic mass] 28.1 pg Normal 26.0-34.0 [facility] Comment on above: Order Comment: Speci men Type: BLOOD SPECIMENOrdering Facility: [facility] Address: [address] [place] [address] Performed By: #### 5 7021-8 ####[facility] LABORATORYCLIA [id number] [address] [facility] MCHC (RBC) [Mass/Vol] 30.4 g/dL Low 30.5-36.0 [facility] Comment on above: Order Comment: Speci men Type: BLOOD SPECIMENOrdering Facility: [facility] Address: [address] [place] [address] Performed By: #### 5 7021-8 ####[facility] LABORATORYCLIA [id number] [address] MCV (RBC) [Entitic vol] 92.5 fL Normal 80.0-100.0 [facility] Comment on above: Order Comment: Speci men Type: BLOOD SPECIMENOrdering Facility: [facility] Address: [address] [place] [address] Performed By: #### 5 7021-8 ####[facility] LABORATORYCLIA [id number] [address] Monocytes (Bld) [#/Vol] 0.75 10*3/uL Normal <0.87 [facility] Comment on above: Order Comment: Speci men Type: BLOOD SPECIMENOrdering Facility: [facility] Address: [address] [place] [address] Performed By: #### 5 7021-8 ####[facility] LABORATORYCLIA [id number] [address] Monocytes/100 WBC (Bld) 7.1 % Normal [facility] Comment on above: Order Comment: Speci men Type: BLOOD SPECIMENOrdering Facility: [facility] Address: [address] [place] [address] Performed By: #### 5 7021-8 ####[facility] LABORATORYCLIA [id number] [address] [place] Neutrophils (Bld) [#/Vol] 7.65 10*3/uL High 1.45-7.50 [facility] Comment on above: Order Comment: Speci men Type: BLOOD SPECIMENOrdering Facility: [facility] Address: [address] [place] [address] Performed By: #### 5 7021-8 ####[facility] LABORATORYCLIA [id number] [address] [place] Neutrophils/100 WBC (Bld) 72.1 % Normal [facility] Comment on above: Order Comment: Speci men Type: BLOOD SPECIMENOrdering Facility: [facility] Address: [address] [place] [address] Performed By: #### 5 7021-8 ####[facility] LABORATORYCLIA [id number] [address] Nucleated RBC (Bld) [#/Vol] 10*3/uL Normal <0.01 [facility] Comment on above: Order Comment: Speci men Type: BLOOD SPECIMENOrdering Facility: [facility] Address: [address] [place] [address] Performed By: #### 5 7021-8 ####[facility] LABORATORYCLIA [id number] [address] Nucleated RBC/100 WBC (Bld) [Ratio] 0.0 /100 WBC Normal [facility] Comment on above: Order Comment: Speci men Type: BLOOD SPECIMENOrdering Facility: [facility] Address: [address] [place] [address] Performed By: #### 5 7021-8 ####[facility] LABORATORYCLIA [id number] [address] [place] Platelet mean volume (Bld) [Entitic vol] 9.8 fL Normal 9.0-12.7 [facility] Comment on above: Order Comment: Speci men Type: BLOOD SPECIMENOrdering Facility: [facility] Address: [address] [place] [address] Performed By: #### 5 7021-8 ####[facility] LABORATORYCLIA [id number] [address] Platelets (Bld) [#/Vol] 175 10*3/uL Normal 150-400 [facility] Comment on above: Order Comment: Speci men Type: BLOOD SPECIMENOrdering Facility: [facility] Address: [address] [place] [address] Performed By: #### 5 7021-8 ####[facility] LABORATORYCLIA [id number] [address] [facility] RBC (Bld) [#/Vol] 3.20 10*6/uL Low 4.20-6.00 [facility] Comment on above: Order Comment: Speci men Type: BLOOD SPECIMENOrdering Facility: [facility] Address: [address] [place] [address] Performed By: #### 5 7021-8 ####[facility] LABORATORYCLIA [id number] [address] [facility] WBC (Bld) [#/Vol] 10.60 10*3/uL Normal 3.70-11.00 [facility] Comment on above: Order Comment: Speci men Type: BLOOD SPECIMENOrdering Facility: [facility] Address: [address] [place] [address] Performed By: #### 5 7021-8 ####[facility] LABORATORYCLIA [id number] [address] [facility] CT BRAIN WO IVCONon 08-09-19 CT BRAIN WO IVCON Normal [facility] NURSING PROGon 08-08-2021 NURSING PROG Normal [facility] Prealbumin [Mass/Vol]on Prealbumin Nephelometry [Mass/Vol] 29 mg/dL Normal 17-36 [facility] Comment on above: Order Comment: Speci men Type: BLOOD SPECIMENOrdering Facility: [facility] Address: [address] [place] [address] Performed By: #### 1 4338-8 ####[facility] LABORATORYCLIA [id number] [address] [place] SARS-CoV-2 RNA Resp Ql MEGAN+p robeon 08-08-2021 SARS-CoV-2 (COVID-19) RNA MEGAN+probe Ql (Resp) COVID 19 RESULT: SARS-CoV-2 (Agent of COVID-19) Not Detected by RT-PCR or equivalent method. This test has been authorized by FDA under an Emergency Use Authorization (EUA). Normal [facility] Comment on above: Performed By: #### 9 4500-6 ####[facility] LABORATORYCLIA [id number] [address] [place] ALLIED HEALTHon 08-07-2021 ALLIED HEALTH Normal [facility] Basic metabolic 2000 panelon 08-07-2021 Anion gap [Moles/Vol] 9 mmol/L Normal 9-18 [facility] Comment on above: Order Comment: Speci men Type: BLOOD SPECIMENOrdering Facility: [facility] Address: [address] [place] [address] Performed By: #### 2 4321-2, 2776-, , [facility] ####[facility] LABORATORYCLIA [id number] [place] [address] [place] Calcium [Mass/Vol] 9.4 mg/dL Normal 8.5-10.2 [facility] Comment on above: Order Comment: Speci men Type: BLOOD SPECIMENOrdering Facility: [facility] Address: [address] [place], [place] [phone] Performed By: #### 2 4321-2, 277-, , [facility] ####[facility] LABORATORYCLIA [id number] [place] [address] [place] Chloride [Moles/Vol] 98 mmol/L Normal 97-105 [facility] Comment on above: Order Comment: Speci men Type: BLOOD SPECIMENOrdering Facility: [facility] Address: [address] [place], [place] [address] Performed By: #### 2 4321-2, 2776-05, , [facility] ####[facility] LABORATORYCLIA [id number] [address] CO2 [Moles/Vol] 29 mmol/L Normal 22-30 [facility] Comment on above: Order Comment: Speci men Type: BLOOD SPECIMENOrdering Facility: [facility] Address: [address] [place], [place] [address] Performed By: #### 2 4321-2, 2776-05, , [facility] ####[facility] LABORATORYIA [id number] [address] Creatinine [Mass/Vol] 0.67 mg/dL Low 0.73-1.22 [facility] Comment on above: Order Comment: Speci men Type: BLOOD SPECIMENOrdering Facility: [facility] Address: [address] [place] [address] Performed By: #### 2 4321-2, 2776-05, , [facility] ####[facility] LABORATORYIA [id number] [address] ESTIMATED GLOMERULAR FILTRATION RATE 101 mL/min/1.73m??? Normal >=60 [facility] Comment on above: Order Comment: Speci men Type: BLOOD SPECIMENOrdering Facility: [facility] Address: [address] [place] [address] Result Comment: Luzmaria mated Glomerular Filtration Rate [...] By: #### 2 4321-2, 2776-05, , [facility] ####[facility] SERVICESCLIA [id number] [place] [address] [place] Glucose [Mass/Vol] 117 mg/dL High 74-99 [facility] Comment on above: Order Comment: Speci men Type: BLOOD SPECIMENOrdering Facility: [facility] Address: [address] [place], [place] [phone] Result Comment: The [place] [employer] (ADA) provides guidance for cutoff [...] Standards of Medical Care in Diabetes 2016, [place] [employer]. Diabetes Care. 2016.39(Suppl 1). Performed By: #### 2 4321-2, 2776-05, , [facility] ####[facility] H[facility]PITALIA [id number] [place] [address] [place] Potassium [Moles/Vol] 4.1 mmol/L Normal 3.7-5.1 [facility] Comment on above: Order Comment: Speci men Type: BLOOD SPECIMENOrdering Facility: [facility] Address: [address] [place], [place] [phone] Performed By: #### 2 4321-2, 2776-, , [facility] ####[facility] HOSPITALIA [id number] [address] [id number] [place] Sodium [Moles/Vol] 136 mmol/L Normal 136-144 [facility] Comment on above: Order Comment: Speci men Type: BLOOD SPECIMENOrdering Facility: [facility] Address: [address] [place], [place] [phone] Performed By: #### 2 4321-2, 2776-05, , [facility] ####[facility] LABORATORYCLIA [id number] [place] [address] [place] Urea nitrogen [Mass/Vol] 31 mg/dL High 9-24 [facility] Comment on above: Order Comment: Speci men Type: BLOOD SPECIMENOrdering Facility: [facility] Address: [address] [place] [address] Performed By: #### 2 4321-2, 2777-1, 14752-3, [facility] ####[facility] LABORATORYCLIA [id number] [place] [address] [place] CBC W Auto Differential pane l (Bld)on 08-07-2021 Basophils (Bld) [#/Vol] 0.03 10*3/uL Normal <0.11 [facility] Comment on above: Order Comment: Speci men Type: BLOOD SPECIMENOrdering Facility: [facility] Address: [address] [place] [address] Performed By: #### 5 7021-8 ####[facility] LABORATORYCLIA [id number] [address] [place] Basophils/100 WBC (Bld) 0.3 % Normal [facility] Comment on above: Order Comment: Speci men Type: BLOOD SPECIMENOrdering Facility: [facility] Address: [address] [place] [address] Performed By: #### 5 7021-8 ####[facility] LABORATORYCLIA [id number] [address] STATES [facility] Differential cell count method Nom (Bld) Auto Normal [facility] Comment on above: Order Comment: Speci men Type: BLOOD SPECIMENOrdering Facility: [facility] Address: [address] [place] [address] Performed By: #### 5 7021-8 ####[facility] LABORATORYCLIA [id number] [place] [address] [place] Eosinophils (Bld) [#/Vol] 0.16 10*3/uL Normal <0.46 [facility] Comment on above: Order Comment: Speci men Type: BLOOD SPECIMENOrdering Facility: [facility] Address: [address] [place] [address] Performed By: #### 5 7021-8 ####[facility] LABORATORYCLIA [id number] [address] STATES OF [facility] Eosinophils/100 WBC (Bld) 1.6 % Normal [facility] Comment on above: Order Comment: Speci men Type: BLOOD SPECIMENOrdering Facility: [facility] Address: [address] [place] [address] Performed By: #### 5 7021-8 ####[facility] LABORATORYCLIA [id number] [address] Erythrocyte distribution width (RBC) [Ratio] 18.1 % High 11.5-15.0 [facility] Comment on above: Order Comment: Speci men Type: BLOOD SPECIMENOrdering Facility: [facility] Address: [address] [place] [address] Performed By: #### 5 7021-8 ####[facility] LABORATORYCLIA [id number] [address] Hematocrit (Bld) [Volume fraction] 30.6 % Low 39.0-51.0 [facility] Comment on above: Order Comment: Speci men Type: BLOOD SPECIMENOrdering Facility: [facility] Address: [address] [place] [address] Performed By: #### 5 7021-8 ####[facility] LABORATORYCLIA [id number] [address] [place] Hemoglobin (Bld) [Mass/Vol] 9.4 g/dL Low 13.0-17.0 [facility] Comment on above: Order Comment: Speci men Type: BLOOD SPECIMENOrdering Facility: [facility] Address: [address] [place] [address] Performed By: #### 5 7021-8 ####[facility] LABORATORYCLIA [id number] [address] [place] IMMATURE GRAN % 0.4 % Normal [facility] Comment on above: Order Comment: Speci men Type: BLOOD SPECIMENOrdering Facility: [facility] Address: [address] [place] [address] Performed By: #### 5 7021-8 ####[facility] LABORATORYCLIA [id number] [address] IMMATURE GRAN ABS 0.04 k/uL Normal <0.10 [facility] Comment on above: Order Comment: Speci men Type: BLOOD SPECIMENOrdering Facility: [facility] Address: [address] [place] [address] Performed By: #### 5 7021-8 ####[facility] LABORATORYCLIA [id number] [address] Lymphocytes (Bld) [#/Vol] 2.05 10*3/uL Normal 1.00-4.00 [facility] Comment on above: Order Comment: Speci men Type: BLOOD SPECIMENOrdering Facility: [facility] Address: [address] [place] [address] Performed By: #### 5 7021-8 ####[facility] LABORATORYCLIA [id number] [address] Lymphocytes/100 WBC (Bld) 20.2 % Normal [facility] Comment on above: Order Comment: Speci men Type: BLOOD SPECIMENOrdering Facility: [facility] Address: [address] [place] [address] Performed By: #### 5 7021-8 ####[facility] LABORATORYCLIA [id number] [address] [place] [facility] MCH (RBC) [Entitic mass] 28.8 pg Normal 26.0-34.0 [facility] Comment on above: Order Comment: Speci men Type: BLOOD SPECIMENOrdering Facility: [facility] Address: [address] [place] [address] Performed By: #### 5 7021-8 ####[facility] LABORATORYCLIA [id number] [address] [place] [facility] MCHC (RBC) [Mass/Vol] 30.7 g/dL Normal 30.5-36.0 [facility] Comment on above: Order Comment: Speci men Type: BLOOD SPECIMENOrdering Facility: [facility] Address: [address] [place] [address] Performed By: #### 5 7021-8 ####[facility] LABORATORYCLIA [id number] [address] MCV (RBC) [Entitic vol] 93.9 fL Normal 80.0-100.0 [facility] Comment on above: Order Comment: Speci men Type: BLOOD SPECIMENOrdering Facility: [facility] Address: [address] [place] [address] Performed By: #### 5 7021-8 ####[facility] LABORATORYCLIA [id number] [address] [place] Monocytes (Bld) [#/Vol] 0.64 10*3/uL Normal <0.87 [facility] Comment on above: Order Comment: Speci men Type: BLOOD SPECIMENOrdering Facility: [facility] Address: [address] [place] [address] Performed By: #### 5 7021-8 ####[facility] LABORATORYCLIA [id number] [address] Monocytes/100 WBC (Bld) 6.3 % Normal [facility] Comment on above: Order Comment: Speci men Type: BLOOD SPECIMENOrdering Facility: [facility] Address: [address] [place] [address] Performed By: #### 5 7021-8 ####[facility] LABORATORYCLIA [id number] [address] [place] Neutrophils (Bld) [#/Vol] 7.22 10*3/uL Normal 1.45-7.50 [facility] Comment on above: Order Comment: Speci men Type: BLOOD SPECIMENOrdering Facility: [facility] Address: [address] [place] [address] Performed By: #### 5 7021-8 ####[facility] LABORATORYCLIA [id number] [address] Neutrophils/100 WBC (Bld) 71.2 % Normal [facility] Comment on above: Order Comment: Speci men Type: BLOOD SPECIMENOrdering Facility: [facility] Address: [address] [place] [address] Performed By: #### 5 7021-8 ####[facility] LABORATORYCLIA [id number] [address] Nucleated RBC (Bld) [#/Vol] 10*3/uL Normal <0.01 [facility] Comment on above: Order Comment: Speci men Type: BLOOD SPECIMENOrdering Facility: [facility] Address: [address] [place] [address] Performed By: #### 5 7021-8 ####[facility] LABORATORYCLIA [id number] [address] Nucleated RBC/100 WBC (Bld) [Ratio] 0.0 /100 WBC Normal [facility] Comment on above: Order Comment: Speci men Type: BLOOD SPECIMENOrdering Facility: [facility] Address: [address] [place] [address] Performed By: #### 5 7021-8 ####[facility] LABORATORYCLIA [id number] [address] Platelet mean volume (Bld) [Entitic vol] 9.9 fL Normal 9.0-12.7 [facility] Comment on above: Order Comment: Speci men Type: BLOOD SPECIMENOrdering Facility: [facility] Address: [address] [place] [address] Performed By: #### 5 7021-8 ####[facility] LABORATORYCLIA [id number] [address] [place] Platelets (Bld) [#/Vol] 227 10*3/uL Normal 150-400 [facility] Comment on above: Order Comment: Speci men Type: BLOOD SPECIMENOrdering Facility: [facility] Address: [address] [place] [address] Performed By: #### 5 7021-8 ####[facility] LABORATORYCLIA [id number] [address] [place] [facility] RBC (Bld) [#/Vol] 3.26 10*6/uL Low 4.20-6.00 [facility] Comment on above: Order Comment: Speci men Type: BLOOD SPECIMENOrdering Facility: [facility] Address: [address] [place] [address] Performed By: #### 5 7021-8 ####[facility] LABORATORYCLIA [id number] [address] WBC (Bld) [#/Vol] 10.14 10*3/uL Normal 3.70-11.00 [facility] Comment on above: Order Comment: Speci men Type: BLOOD SPECIMENOrdering Facility: [facility] Address: [address] [place] [address] Performed By: #### 5 7021-8 ####[facility] LABORATORYCLIA [id number] [address] BRAIN WO IVCONon 08-08-19 CT BRAIN WO IVCON Normal [facility] HEPATIC FUNCTION PNLon 08-07 Albumin [Mass/Vol] 3.6 g/dL Low 3.9-4.9 [facility] Comment on above: Order Comment: Speci men Type: BLOOD SPECIMENOrdering Facility: [facility] Address: [address] [place] [address] Performed By: #### 2 4321-2, 2777-1, 89792-6, HFP ####[facility] LABORATORYCLIA [id number] [address] [place] [facility] ALP [Catalytic activity/Vol] 124 U/L High 38-113 [facility] Comment on above: Order Comment: Speci men Type: BLOOD SPECIMENOrdering Facility: [facility] Address: [address] [place] [address] Performed By: #### 2 4321-2, 2776-05, , HFP ####[facility] LABORATORYCLIA [id number] [address] [place] ALT With P-5'-P [Catalytic activity/Vol] 29 U/L Normal 10-54 [facility] Comment on above: Order Comment: Speci men Type: BLOOD SPECIMENOrdering Facility: [facility] Address: [address] [place] [address] Performed By: #### 2 4321-2, 2776-05, , HFP ####[facility] LABORATORYCLIA [id number] [address] [place] AST With P-5'-P [Catalytic activity/Vol] 18 U/L Normal 14-40 [facility] Comment on above: Order Comment: Speci men Type: BLOOD SPECIMENOrdering Facility: [facility] Address: [address] [place] [address] Performed By: #### 2 4321-2, 2776-05, , HFP ####[facility] LABORATORYCLIA [id number] [address] [place] Bilirubin [Mass/Vol] 0.3 mg/dL Normal 0.2-1.3 [facility] Comment on above: Order Comment: Speci men Type: BLOOD SPECIMENOrdering Facility: [facility] Address: [address] [place], [place] [address] Performed By: #### 2 4321-2, 2776-05, , HFP ####[facility] LABORATORYCLIA [id number] [address] Bilirubin.conjugated [Mass/Vol] mg/dL Normal <0.2 [facility] Comment on above: Order Comment: Speci men Type: BLOOD SPECIMENOrdering Facility: [facility] Address: [address] [place], [place] [address] Performed By: #### 2 4321-2, 2776-05, , HFP ####[facility] LABORATORYCLIA [id number] [address] [place] Protein [Mass/Vol] 6.4 g/dL Normal 6.3-8.0 [facility] Comment on above: Order Comment: Speci men Type: BLOOD SPECIMENOrdering Facility: [facility] Address: [address] [place] [address] Performed By: #### 2 4321-2, 2776-05, , HFP ####[facility] LABORATORYCLIA [id number] [place] [address] [place] Magnesium SerPl-ncon 08-07 Magnesium [Mass/Vol] 2.3 mg/dL Normal 1.7-2.3 [facility] Comment on above: Order Comment: Speci men Type: BLOOD SPECIMENOrdering Facility: [facility] Address: [address] [place], [place] [address] Performed By: #### 2 4321-2, 2776-05, , HFP ####[facility] LABORATORYCLIA [id number] [place] [address] [place] NURSING PROGon 08-07-2021 NURSING PROG Normal [facility] Phosphate SerPl-mCncon 08-07 Phosphate [Mass/Vol] 3.5 mg/dL Normal 2.7-4.8 [facility] Comment on above: Order Comment: Speci men Type: BLOOD SPECIMENOrdering Facility: [facility] Address: [address] [place], [place] [address] Performed By: #### 2 4321-2, 2776-05, , HFP ####[facility]ORATORYCLIA [id number] [place] [address] [place] ANES POSTPROC EVALon 08-06- 022 ANES POSTPROC EVAL Normal [facility] Basic metabolic 2000 panelon 08-06-2021 Anion gap [Moles/Vol] 11 mmol/L Normal 9-18 [facility] Comment on above: Order Comment: Speci men Type: BLOOD SPECIMENOrdering Facility: [facility] Address: [address] [place] [address] Performed By: #### 2 4321-2, 2776-, ####[facility] LABORATORYCLIA [id number] [place] [address] [place] Calcium [Mass/Vol] 8.2 mg/dL Low 8.5-10.2 [facility] Comment on above: Order Comment: Speci men Type: BLOOD SPECIMENOrdering Facility: [facility] Address: [address] [place] [address] Performed By: #### 2 4321-2, 2776-05, ####[facility] LABORATORYCLIA [id number] [place] [address] [place] Chloride [Moles/Vol] 100 mmol/L Normal 97-105 [facility] Comment on above: Order Comment: Speci men Type: BLOOD SPECIMENOrdering Facility: [facility] Address: [address] [place] [address] Performed By: #### 2 4321-2, 2776-05, ####[facility] LABORATORYCLIA [id number] [place] [address] [place] CO2 [Moles/Vol] 23 mmol/L Normal 22-30 [facility] Comment on above: Order Comment: Speci men Type: BLOOD SPECIMENOrdering Facility: [facility] Address: [address] [place] [address] Performed By: #### 2 4321-2, 2776-05, ####[facility] LABORATORYCLIA [id number] [place] [address] [place] Creatinine [Mass/Vol] 0.55 mg/dL Low 0.73-1.22 [facility] Comment on above: Order Comment: Speci men Type: BLOOD SPECIMENOrdering Facility: [facility] Address: [address] [place], [place] [address] Performed By: #### 2 4321-2, 2777-1, ####[facility]PITALIA [id number] [place] [id number] [place] ESTIMATED GLOMERULAR FILTRATION RATE 107 mL/min/1.73m??? Normal >=60 [facility] Comment on above: Order Comment: Shira feldman Type: BLOOD SPECIMENOrdering Facility: [facility] Address: [address] [place], [place] [address] Result Comment: Luzmaria mated Glomerular Filtration Rate [...] GFR. Performed By: #### 2 4321-2, 2777-, ####[facility] LABORATORYIA [id number] [place] [address] [place] Glucose [Mass/Vol] 275 mg/dL High 74-99 [facility] Comment on above: Order Comment: Shira feldman Type: BLOOD SPECIMENOrdering Facility: [facility] Address: [address] [place] [address] Result Comment: The [place] [employer] (ADA) provides guidance for cutoff [...] Standards of Medical Care in Diabetes 2016, [place] [employer]. Diabetes Care. 2016.39(Suppl 1). Performed By: #### 2 4321-2, 27711-04, ####[facility] LABORATORYCLIA [id number] [address] [place] [facility] Potassium [Moles/Vol] 3.6 mmol/L Low 3.7-5.1 [facility] Comment on above: Order Comment: Speci men Type: BLOOD SPECIMENOrdering Facility: [facility] Address: [address] [place] [address] Performed By: #### 2 4321-2, 2776-05, ####[facility] LABORATORYCLIA [id number] [address] STATES [facility] Sodium [Moles/Vol] 134 mmol/L Low 136-144 [facility] Comment on above: Order Comment: Speci men Type: BLOOD SPECIMENOrdering Facility: [facility] Address: [address] [place] [address] Performed By: #### 2 4321-2, 2776-05, ####[facility] LABORATORYCLIA [id number] [address] [place] [facility] Urea nitrogen [Mass/Vol] 29 mg/dL High 9-24 [facility] Comment on above: Order Comment: Speci men Type: BLOOD SPECIMENOrdering Facility: [facility] Address: [address] [place] [address] Performed By: #### 2 4321-2, 2776-05, ####[facility] LABORATORYCLIA [id number] [address] [place] CBC W Auto Differential pane l (Bld)on 08-06-2021 Basophils (Bld) [#/Vol] 0.03 10*3/uL Normal <0.11 [facility] Comment on above: Order Comment: Speci men Type: BLOOD SPECIMENOrdering Facility: [facility] Address: [address] [place] [address] Performed By: #### 5 7021-8 ####[facility] LABORATORYCLIA [id number] [address] [place] Basophils/100 WBC (Bld) 0.3 % Normal [facility] Comment on above: Order Comment: Speci men Type: BLOOD SPECIMENOrdering Facility: [facility] Address: [facility] [place] [address] Performed By: #### 5 7021-8 ####[facility] LABORATORYCLIA [id number] [address] [place] Differential cell count method Nom (Bld) Auto Normal [facility] Comment on above: Order Comment: Speci men Type: BLOOD SPECIMENOrdering Facility: [facility] Address: [address] [place] [address] Performed By: #### 5 7021-8 ####[facility] LABORATORYCLIA [id number] [address] [place] Eosinophils (Bld) [#/Vol] 0.18 10*3/uL Normal <0.46 [facility] Comment on above: Order Comment: Speci men Type: BLOOD SPECIMENOrdering Facility: [facility] Address: [address] [place] [address] Performed By: #### 5 7021-8 ####[facility] LABORATORYCLIA [id number] [address] [place] Eosinophils/100 WBC (Bld) 1.6 % Normal [facility] Comment on above: Order Comment: Speci men Type: BLOOD SPECIMENOrdering Facility: [facility] Address: [address] [place] [address] Performed By: #### 5 7021-8 ####[facility] LABORATORYCLIA [id number] [address] [place] Erythrocyte distribution width (RBC) [Ratio] 17.9 % High 11.5-15.0 [facility] Comment on above: Order Comment: Speci men Type: BLOOD SPECIMENOrdering Facility: [facility] Address: [address] [place] [address] Performed By: #### 5 7021-8 ####[facility] LABORATORYCLIA [id number] [address] Hematocrit (Bld) [Volume fraction] 27.6 % Low 39.0-51.0 [facility] Comment on above: Order Comment: Speci men Type: BLOOD SPECIMENOrdering Facility: [facility] Address: [address] [place] [address] Performed By: #### 5 7021-8 ####[facility] LABORATORYCLIA [id number] [address] Hemoglobin (Bld) [Mass/Vol] 8.5 g/dL Low 13.0-17.0 [facility] Comment on above: Order Comment: Speci men Type: BLOOD SPECIMENOrdering Facility: [facility] Address: [address] [place] [address] Performed By: #### 5 7021-8 ####[facility] LABORATORYCLIA [id number] [address] IMMATURE GRAN % 0.6 % Normal [facility] Comment on above: Order Comment: Speci men Type: BLOOD SPECIMENOrdering Facility: [facility] Address: [address] [place] [address] Performed By: #### 5 7021-8 ####[facility] LABORATORYCLIA [id number] [address] IMMATURE GRAN ABS 0.07 k/uL Normal <0.10 [facility] Comment on above: Order Comment: Speci men Type: BLOOD SPECIMENOrdering Facility: [facility] Address: [address] [place] [address] Performed By: #### 5 7021-8 ####[facility] LABORATORYCLIA [id number] [address] Lymphocytes (Bld) [#/Vol] 1.81 10*3/uL Normal 1.00-4.00 [facility] Comment on above: Order Comment: Speci men Type: BLOOD SPECIMENOrdering Facility: [facility] Address: [address] [place] [address] Performed By: #### 5 7021-8 ####[facility] LABORATORYCLIA [id number] [address] Lymphocytes/100 WBC (Bld) 15.7 % Normal [facility] Comment on above: Order Comment: Speci men Type: BLOOD SPECIMENOrdering Facility: [facility] Address: [address] [place] [address] Performed By: #### 5 7021-8 ####[facility] LABORATORYCLIA [id number] [address] MCH (RBC) [Entitic mass] 28.6 pg Normal 26.0-34.0 [facility] Comment on above: Order Comment: Speci men Type: BLOOD SPECIMENOrdering Facility: [facility] Address: [address] [place] [address] Performed By: #### 5 7021-8 ####[facility] LABORATORYCLIA [id number] [address] [place] [facility] MCHC (RBC) [Mass/Vol] 30.8 g/dL Normal 30.5-36.0 [facility] Comment on above: Order Comment: Speci men Type: BLOOD SPECIMENOrdering Facility: [facility] Address: [address] [place] [address] Performed By: #### 5 7021-8 ####[facility] LABORATORYCLIA [id number] [address] MCV (RBC) [Entitic vol] 92.9 fL Normal 80.0-100.0 [facility] Comment on above: Order Comment: Speci men Type: BLOOD SPECIMENOrdering Facility: [facility] Address: [address] [place] [address] Performed By: #### 5 7021-8 ####[facility] LABORATORYCLIA [id number] [address] Monocytes (Bld) [#/Vol] 0.63 10*3/uL Normal <0.87 [facility] Comment on above: Order Comment: Speci men Type: BLOOD SPECIMENOrdering Facility: [facility] Address: [address] [place] [address] Performed By: #### 5 7021-8 ####[facility]ORATORYCLIA [id number] [address] [place] Monocytes/100 WBC (Bld) 5.5 % Normal [facility] Comment on above: Order Comment: Speci men Type: BLOOD SPECIMENOrdering Facility: [facility] Address: [address] [place] [address] Performed By: #### 5 7021-8 ####[facility]ORATORYCLIA [id number] [address] [place] Neutrophils (Bld) [#/Vol] 8.78 10*3/uL High 1.45-7.50 [facility] Comment on above: Order Comment: Speci men Type: BLOOD SPECIMENOrdering Facility: [facility] Address: [address] [place] [address] Performed By: #### 5 7021-8 ####[facility]ORATORYCLIA [id number] [address] [place] Neutrophils/100 WBC (Bld) 76.3 % Normal [facility] Comment on above: Order Comment: Speci men Type: BLOOD SPECIMENOrdering Facility: [facility] Address: [address] [place] [address] Performed By: #### 5 7021-8 ####[facility]ORATORYCLIA [id number] [address] [place] Nucleated RBC (Bld) [#/Vol] 10*3/uL Normal <0.01 [facility] Comment on above: Order Comment: Speci men Type: BLOOD SPECIMENOrdering Facility: [facility] Address: [address] [place] [address] Performed By: #### 5 7021-8 ####[facility] LABORATORYCLIA [id number] [address] [place] Nucleated RBC/100 WBC (Bld) [Ratio] 0.0 /100 WBC Normal [facility] Comment on above: Order Comment: Speci men Type: BLOOD SPECIMENOrdering Facility: [facility] Address: [address] [place] [address] Performed By: #### 5 7021-8 ####[facility] LABORATORYCLIA [id number] [address] [facility] Platelet mean volume (Bld) [Entitic vol] 9.9 fL Normal 9.0-12.7 [facility] Comment on above: Order Comment: Speci men Type: BLOOD SPECIMENOrdering Facility: [facility] Address: [address] [place] [address] Performed By: #### 5 7021-8 ####[facility] LABORATORYCLIA [id number] [address] [place] Platelets (Bld) [#/Vol] 230 10*3/uL Normal 150-400 [facility] Comment on above: Order Comment: Speci men Type: BLOOD SPECIMENOrdering Facility: [facility] Address: [address] [place] [address] Performed By: #### 5 7021-8 ####[facility] LABORATORYCLIA [id number] [address] [place] RBC (Bld) [#/Vol] 2.97 10*6/uL Low 4.20-6.00 [facility] Comment on above: Order Comment: Speci men Type: BLOOD SPECIMENOrdering Facility: [facility] Address: [address] [place] [address] Performed By: #### 5 7021-8 ####[facility] LABORATORYCLIA [id number] [address] [place] WBC (Bld) [#/Vol] 11.50 10*3/uL High 3.70-11.00 [facility] Comment on above: Order Comment: Speci men Type: BLOOD SPECIMENOrdering Facility: [facility] Address: [address] [place] [address] Performed By: #### 5 7021-8 ####[facility] LABORATORYCLIA [id number] [address] [place] CONSULT PROGon 08-06-2021 CONSULT PROG Normal [facility] Magnesium SerPl-mCncon 08-06 Magnesium [Mass/Vol] 1.9 mg/dL Normal 1.7-2.3 [facility] Comment on above: Order Comment: Speci men Type: BLOOD SPECIMENOrdering Facility: [facility] Address: [address] [place] [address] Performed By: #### 2 4321-2, 2777-, ####[facility] LABORATORYCLIA [id number] [address] [facility] NURSING PROGon 08-06-2021 NURSING PROG Normal [facility] OPERATIVE NOon 08-06-2021 OPERATIVE NO Normal [facility] Phosphate SerPl-mCncon 08-06 Phosphate [Mass/Vol] 4.2 mg/dL Normal 2.7-4.8 [facility] Comment on above: Order Comment: Speci men Type: BLOOD SPECIMENOrdering Facility: [facility] Address: [address] [place] [address] Performed By: #### 2 4321-2, 27711-04, ####[facility] LABORATORYCLIA [id number] [address] [place] ALLIED HEALTHon 08-05-2021 ALLIED HEALTH Normal [facility] ALLIED HEALTH Normal [facility] ANES PRE-OPon 08-05-2021 ANES PRE-OP Normal [facility] BRIEF OP NOTon 08-05-2021 BRIEF OP NOT Normal [facility] Bacteria Spec Resp Culton Bacteria identified Respiratory culture Nom (Unsp spec) CULTURE, RESPIRATORY: Few Normal respiratory chris present ORGANISM ID: 1 Few Proteus species Insignificant colony count. No further workup. GRAM STAIN: No organisms seen Few Polymorphonuclear leukocytes Few Epithelial cells Abnormal [facility] Comment on above: Performed By: #### 3 2355-0 ####[facility] LABORATORYCLIA [id number] [address] Bacteria Ur Culton 2 Bacteria identified Cx Nom (U) CULTURE, URINE: No growth (<1,000 CFU/ml) Normal [facility] Comment on above: Performed By: #### 6 30-4 ####[facility] LABORATORYCLIA [id number] [address] [place] Basic metabolic 2000 panelon 08-05-2021 Anion gap [Moles/Vol] 7 mmol/L Low 9-18 [facility] Comment on above: Order Comment: Speci men Type: BLOOD SPECIMENOrdering Facility: [facility] Address: [address] [place] [address] Performed By: #### 2 4321-2 ####[facility] LABORATORYCLIA [id number] [place] [address] [place] Calcium [Mass/Vol] 9.5 mg/dL Normal 8.5-10.2 [facility] Comment on above: Order Comment: Speci men Type: BLOOD SPECIMENOrdering Facility: [facility] Address: [address] [place] [address] Performed By: #### 2 4321-2 ####[facility] LABORATORYCLIA [id number] [address] [place] Chloride [Moles/Vol] 97 mmol/L Normal 97-105 [facility] Comment on above: Order Comment: Speci men Type: BLOOD SPECIMENOrdering Facility: [facility] Address: [address] [place] [address] Performed By: #### 2 4321-2 ####[facility] LABORATORYCLIA [id number] [place] [address] [place] CO2 [Moles/Vol] 30 mmol/L Normal 22-30 [facility] Comment on above: Order Comment: Speci men Type: BLOOD SPECIMENOrdering Facility: [facility] Address: [address] [address] Performed By: #### 2 4321-2 ####[facility] SERVICESCLIA [id number] [address] [facility] Creatinine [Mass/Vol] 0.61 mg/dL Low 0.73-1.22 [facility] Comment on above: Order Comment: Speci francia Type: BLOOD SPECIMENOrdering Facility: [facility] Address: [address] [address] Performed By: #### 2 4321-2 ####[facility]PITALIA [id number] [address] ESTIMATED GLOMERULAR FILTRATION RATE 104 mL/min/1.73m??? Normal >=60 [facility] Comment on above: Order Comment: Shira feldman Type: BLOOD SPECIMENOrdering Facility: [facility] Address: [address] [place] [address] Result Comment: Luzmaria mated Glomerular Filtration Rate [...] actual GFR. Performed By: #### 2 4321-2 ####[facility] LABORATORYIA [id number] [address] [place] Glucose [Mass/Vol] 124 mg/dL High 74-99 [facility] Comment on above: Order Comment: Shira feldman Type: BLOOD SPECIMENOrdering Facility: [facility] Address: [address] [address] Result Comment: The [place] [employer] (ADA) provides guidance for cutoff [...] Standards of Medical Care in Diabetes 2016, [place] [employer]. Diabetes Care. 2016.39(Suppl 1). Performed By: #### 2 4321-2 ####[facility] LABORATORYCLIA [id number] [address] Potassium [Moles/Vol] 4.9 mmol/L Normal 3.7-5.1 [facility] Comment on above: Order Comment: Speci men Type: BLOOD SPECIMENOrdering Facility: [facility] Address: [address] [place] [address] Performed By: #### 2 4321-2 ####[facility] LABORATORYCLIA [id number] [address] Sodium [Moles/Vol] 134 mmol/L Low 136-144 [facility] Comment on above: Order Comment: Speci men Type: BLOOD SPECIMENOrdering Facility: [facility] Address: [address] [place] [address] Performed By: #### 2 4321-2 ####[facility] LABORATORYCLIA [id number] [address] Urea nitrogen [Mass/Vol] 40 mg/dL High 9-24 [facility] Comment on above: Order Comment: Speci men Type: BLOOD SPECIMENOrdering Facility: [facility] Address: [address] [place] [address] Performed By: #### 2 4321-2 ####[facility] LABORATORYCLIA [id number] [address] [facility] CBC W Auto Differential pane l (Bld)on 08-05-2021 Basophils (Bld) [#/Vol] 0.04 10*3/uL Normal <0.11 [facility] Comment on above: Order Comment: Speci men Type: BLOOD SPECIMENOrdering Facility: [facility] Address: [address] [place] [address] Performed By: #### 5 7021-8 ####[facility]ORATORYCLIA [id number] [address] STATES [facility] Basophils/100 WBC (Bld) 0.3 % Normal [facility] Comment on above: Order Comment: Speci men Type: BLOOD SPECIMENOrdering Facility: [facility] Address: [address] [place] [address] Performed By: #### 5 7021-8 ####[facility] LABORATORYCLIA [id number] [address] Differential cell count method Nom (Bld) Auto Normal [facility] Comment on above: Order Comment: Speci men Type: BLOOD SPECIMENOrdering Facility: [facility] Address: [address] [place] [address] Performed By: #### 5 7021-8 ####[facility] LABORATORYCLIA [id number] [address] [place] Eosinophils (Bld) [#/Vol] 0.42 10*3/uL Normal <0.46 [facility] Comment on above: Order Comment: Speci men Type: BLOOD SPECIMENOrdering Facility: [facility] Address: [address] [place] [address] Performed By: #### 5 7021-8 ####[facility] LABORATORYCLIA [id number] [address] Eosinophils/100 WBC (Bld) 3.6 % Normal [facility] Comment on above: Order Comment: Speci men Type: BLOOD SPECIMENOrdering Facility: [facility] Address: [address] [place] [address] Performed By: #### 5 7021-8 ####[facility]ORATORYCLIA [id number] [address] [place] Erythrocyte distribution width (RBC) [Ratio] 17.9 % High 11.5-15.0 [facility] Comment on above: Order Comment: Speci men Type: BLOOD SPECIMENOrdering Facility: [facility] Address: [address] [place] [address] Performed By: #### 5 7021-8 ####[facility] LABORATORYCLIA [id number] [address] [facility] Hematocrit (Bld) [Volume fraction] 30.8 % Low 39.0-51.0 [facility] Comment on above: Order Comment: Speci men Type: BLOOD SPECIMENOrdering Facility: [facility] Address: [address] [place] [address] Performed By: #### 5 7021-8 ####[facility] LABORATORYCLIA [id number] [address] Hemoglobin (Bld) [Mass/Vol] 9.6 g/dL Low 13.0-17.0 [facility] Comment on above: Order Comment: Speci men Type: BLOOD SPECIMENOrdering Facility: [facility] Address: [address] [place] [address] Performed By: #### 5 7021-8 ####[facility] LABORATORYCLIA [id number] [address] IMMATURE GRAN % 0.5 % Normal [facility] Comment on above: Order Comment: Speci men Type: BLOOD SPECIMENOrdering Facility: [facility] Address: [address] [place] [address] Performed By: #### 5 7021-8 ####[facility] LABORATORYCLIA [id number] [address] IMMATURE GRAN ABS 0.06 k/uL Normal <0.10 [facility] Comment on above: Order Comment: Speci men Type: BLOOD SPECIMENOrdering Facility: [facility] Address: [address] [place] [address] Performed By: #### 5 7021-8 ####[facility] LABORATORYCLIA [id number] [address] [facility] Lymphocytes (Bld) [#/Vol] 2.17 10*3/uL Normal 1.00-4.00 [facility] Comment on above: Order Comment: Speci men Type: BLOOD SPECIMENOrdering Facility: [facility] Address: [address] [place] [address] Performed By: #### 5 7021-8 ####[facility] LABORATORYCLIA [id number] [address] [facility] Lymphocytes/100 WBC (Bld) 18.7 % Normal [facility] Comment on above: Order Comment: Speci men Type: BLOOD SPECIMENOrdering Facility: [facility] Address: [address] [place] [address] Performed By: #### 5 7021-8 ####[facility] LABORATORYCLIA [id number] [address] [place] [facility] MCH (RBC) [Entitic mass] 28.9 pg Normal 26.0-34.0 [facility] Comment on above: Order Comment: Speci men Type: BLOOD SPECIMENOrdering Facility: [facility] Address: [address] [place] [address] Performed By: #### 5 7021-8 ####[facility] LABORATORYCLIA [id number] [address] [place] MCHC (RBC) [Mass/Vol] 31.2 g/dL Normal 30.5-36.0 [facility] Comment on above: Order Comment: Speci men Type: BLOOD SPECIMENOrdering Facility: [facility] Address: [address] [place] [address] Performed By: #### 5 7021-8 ####[facility] LABORATORYCLIA [id number] [address] STATES [facility] MCV (RBC) [Entitic vol] 92.8 fL Normal 80.0-100.0 [facility] Comment on above: Order Comment: Speci men Type: BLOOD SPECIMENOrdering Facility: [facility] Address: [address] [place] [address] Performed By: #### 5 7021-8 ####[facility]ORATORYCLIA [id number] [address] [place] Monocytes (Bld) [#/Vol] 0.71 10*3/uL Normal <0.87 [facility] Comment on above: Order Comment: Speci men Type: BLOOD SPECIMENOrdering Facility: [facility] Address: [address] [place] [address] Performed By: #### 5 7021-8 ####[facility] LABORATORYCLIA [id number] [address] [place] Monocytes/100 WBC (Bld) 6.1 % Normal [facility] Comment on above: Order Comment: Speci men Type: BLOOD SPECIMENOrdering Facility: [facility] Address: [address] [place] [address] Performed By: #### 5 7021-8 ####[facility] LABORATORYCLIA [id number] [address] [place] Neutrophils (Bld) [#/Vol] 8.19 10*3/uL High 1.45-7.50 [facility] Comment on above: Order Comment: Speci men Type: BLOOD SPECIMENOrdering Facility: [facility] Address: [address] [place] [address] Performed By: #### 5 7021-8 ####[facility]ORATORYCLIA [id number] [address] [place] Neutrophils/100 WBC (Bld) 70.8 % Normal [facility] Comment on above: Order Comment: Speci men Type: BLOOD SPECIMENOrdering Facility: [facility] Address: [address] [place] [address] Performed By: #### 5 7021-8 ####[facility]ORATORYCLIA [id number] [address] [place] Nucleated RBC (Bld) [#/Vol] 10*3/uL Normal <0.01 [facility] Comment on above: Order Comment: Speci men Type: BLOOD SPECIMENOrdering Facility: [facility] Address: [address] [place] [address] Performed By: #### 5 7021-8 ####[facility] LABORATORYCLIA [id number] [address] [place] Nucleated RBC/100 WBC (Bld) [Ratio] 0.0 /100 WBC Normal [facility] Comment on above: Order Comment: Speci men Type: BLOOD SPECIMENOrdering Facility: [facility] Address: [address] [place], [place] [address] Performed By: #### 5 7021-8 ####[facility] LABORATORYCLIA [id number] [place] [address] [place] Platelet mean volume (Bld) [Entitic vol] 9.6 fL Normal 9.0-12.7 [facility] Comment on above: Order Comment: Speci men Type: BLOOD SPECIMENOrdering Facility: [facility] Address: [address] [place] [address] Performed By: #### 5 7021-8 ####[facility] LABORATORYCLIA [id number] [place] [address] [place] Platelets (Bld) [#/Vol] 339 10*3/uL Normal 150-400 [facility] Comment on above: Order Comment: Speci men Type: BLOOD SPECIMENOrdering Facility: [facility] Address: [address] Performed By: #### 5 7021-8 ####[facility] LABORATORYCLIA [id number] [place] [address] [place] RBC (Bld) [#/Vol] 3.32 10*6/uL Low 4.20-6.00 [facility] Comment on above: Order Comment: Speci men Type: BLOOD SPECIMENOrdering Facility: [facility] Address: [address] [place] [address] Performed By: #### 5 7021-8 ####[facility] LABORATORYCLIA [id number] [address] [place] WBC (Bld) [#/Vol] 11.59 10*3/uL High 3.70-11.00 [facility] Comment on above: Order Comment: Speci men Type: BLOOD SPECIMENOrdering Facility: [facility] Address: [address] [place] [address] Performed By: #### 5 7021-8 ####[facility] LABORATORYCLIA [id number] [address] [place] CT BRAIN WO IVCONon 08-06-19 CT BRAIN WO IVCON Normal [facility] Magnesium SerPl-mCncon 08-05 Magnesium [Mass/Vol] 2.2 mg/dL Normal 1.7-2.3 [facility] Comment on above: Order Comment: Speci men Type: BLOOD SPECIMENOrdering Facility: [facility] Address: [address] [place] [address] Performed By: #### 1 9123-9, 2777-1 ####[facility] LABORATORYCLIA [id number] [address] NURSING PROGon 08-05-2021 NURSING PROG Normal [facility] NURSING PROG Normal [facility] NUTRITIONon 08-05-2021 NUTRITION Normal [facility] OPERATIVE NOon 08-05-2021 OPERATIVE NO Normal [facility] Phosphate SerPl-mCncon 08-05 Phosphate [Mass/Vol] 4.6 mg/dL Normal 2.7-4.8 [facility] Comment on above: Order Comment: Speci men Type: BLOOD SPECIMENOrdering Facility: [facility] Address: [address] [place] [address] Performed By: #### 1 9123-9, 2777-1 ####[facility] LABORATORYCLIA [id number] [address] [place] THERAPY NTon 08-05-2021 THERAPY NT Normal [facility] THERAPY NT Normal [facility] Urinalysis complete panel (U )on 08-05-2021 Bilirubin Ql (U) Negative Normal Negative [facility] Comment on above: Order Comment: Speci men Type: URINE SPECIMENOrdering Facility: [facility] Address: [address] [place] [address] Performed By: #### 2 4356-8 ####[facility] LABORATORYCLIA [id number] [address] Clarity (Unsp spec) Clear Normal Clear [facility] Comment on above: Order Comment: Speci men Type: URINE SPECIMENOrdering Facility: [facility] Address: [address] [place] [address] Performed By: #### 2 4356-8 ####[facility] LABORATORYCLIA [id number] [address] Color (U) Light Yellow Normal yellow [facility] Comment on above: Order Comment: Speci men Type: URINE SPECIMENOrdering Facility: [facility] Address: [address] [place] [address] Performed By: #### 2 4356-8 ####[facility] LABORATORYCLIA [id number] [address] Epithelial cells LM.HPF (Urine sed) [#/Area] Few Abnormal None Seen [facility] Comment on above: Order Comment: Speci men Type: URINE SPECIMENOrdering Facility: [facility] Address: [address] [place] [address] Performed By: #### 2 4356-8 ####[facility] LABORATORYCLIA [id number] [address] Glucose Test strip (U) [Mass/Vol] Negative Normal Negative [facility] Comment on above: Order Comment: Speci men Type: URINE SPECIMENOrdering Facility: [facility] Address: [address] [place] [address] Performed By: #### 2 4356-8 ####[facility] LABORATORYCLIA [id number] [address] Hemoglobin Ql (U) Negative Normal Negative [facility] Comment on above: Order Comment: Speci men Type: URINE SPECIMENOrdering Facility: [facility] Address: [address] [place] [address] Performed By: #### 2 4356-8 ####[facility] LABORATORYCLIA [id number] [place] [address] [place] Hyaline casts (Urine sed) [#/Area] 1-3 /LPF Abnormal 0 /LPF [facility] Comment on above: Order Comment: Speci men Type: URINE SPECIMENOrdering Facility: [facility] Address: [address] [place] [address] Performed By: #### 2 4356-8 ####[facility] LABORATORYCLIA [id number] [address] STATES [facility] Ketones Ql (U) Negative Normal Negative [facility] Comment on above: Order Comment: Speci men Type: URINE SPECIMENOrdering Facility: [facility] Address: [address] [place] [address] Performed By: #### 2 4356-8 ####[facility] LABORATORYCLIA [id number] [address] Leukocyte esterase Test strip Ql (U) Negative Normal Negative [facility] Comment on above: Order Comment: Speci men Type: URINE SPECIMENOrdering Facility: [facility] Address: [address] [place] [address] Performed By: #### 2 4356-8 ####[facility] LABORATORYCLIA [id number] [place] [address] [place] Nitrite Ql (U) Negative Normal Negative [facility] Comment on above: Order Comment: Speci men Type: URINE SPECIMENOrdering Facility: [facility] Address: [address] [place] [address] Performed By: #### 2 4356-8 ####[facility] LABORATORYCLIA [id number] [place] [address] [place] pH (U) 6.0 [pH] Normal 5.0-8.0 [facility] Comment on above: Order Comment: Speci men Type: URINE SPECIMENOrdering Facility: [facility] Address: [address] [place] [address] Performed By: #### 2 4356-8 ####[facility] LABORATORYCLIA [id number] [address] Protein (U) [Mass/Vol] Negative Normal Negative [facility] Comment on above: Order Comment: Speci men Type: URINE SPECIMENOrdering Facility: [facility] Address: [address] [place] [address] Performed By: #### 2 4356-8 ####[facility] SERVICESCLIA [id number] [address] [place] [facility] RBC LM.HPF (Urine sed) [#/Area] 0-3 /HPF Normal 0-3 /HPF [facility] Comment on above: Order Comment: Speci men Type: URINE SPECIMENOrdering Facility: [facility] Address: [address] [place] [address] Performed By: #### 2 4356-8 ####[facility] SERVICESCLIA [id number] [address] [place] Specific gravity (U) [Rel density] 1.015 Normal 1.005-1.030 [facility] Comment on above: Order Comment: Speci men Type: URINE SPECIMENOrdering Facility: [facility] Address: [address] [place] [address] Performed By: #### 2 4356-8 ####[facility] LABORATORYCLIA [id number] [address] Urobilinogen Ql (U) Normal Normal Negative [facility] Comment on above: Order Comment: Speci men Type: URINE SPECIMENOrdering Facility: [facility] Address: [address] [place] [address] Performed By: #### 2 4356-8 ####[facility] LABORATORYCLIA [id number] [address] WBC LM.HPF (Urine sed) [#/Area] 0-5 /HPF Normal 0-5 /HPF [facility] Comment on above: Order Comment: Speci men Type: URINE SPECIMENOrdering Facility: [facility] Address: [address] [place] [id number] Performed By: #### 2 4356-8 ####[facility] LABORATORYCLIA [id number] [address] XR ABDOMEN 1V SUPINEon 08-05 XR ABDOMEN 1V SUPINE Normal [facility] XR CHEST 1V FRONTALon 2021 XR CHEST 1V FRONTAL Normal [facility] XR CHEST 1V FRONTAL Normal [facility] XR NECK SOFT TISSUE 2V AP/LA Ton 08-05-2021 XR NECK SOFT TISSUE 2V AP/LAT Normal [facility] XR SKULL 2V AP/LATon 022 XR SKULL 2V AP/LAT Normal [facility] ALLIED HEALTHon 08-04-2021 ALLIED HEALTH Normal [facility] Bacteria Bld Culton 08-05-19 22 Bacteria identified Cx Nom (Bld) CULTURE, BLOOD: No growth 5 days Normal [facility] Comment on above: Performed By: #### 6 00-7 ####[facility] LABORATORYCLIA [id number] [address] Bacteria identified Cx Nom (Bld) CULTURE, BLOOD: No growth 5 days Normal [facility] Comment on above: Performed By: #### 6 00-7 ####[facility] LABORATORYCLIA [id number] [address] CBC W Auto Differential pane l (Bld)on 08-04-2021 Basophils (Bld) [#/Vol] 0.05 10*3/uL Normal <0.11 [facility] Comment on above: Order Comment: Speci men Type: BLOOD SPECIMENOrdering Facility: [facility] Address: [address] [place] [id number] Performed By: #### 5 7021-8 ####[facility]ORATORYCLIA [id number] [address] [place] Basophils/100 WBC (Bld) 0.4 % Normal [facility] Comment on above: Order Comment: Speci men Type: BLOOD SPECIMENOrdering Facility: [facility] Address: [address] [place] [address] Performed By: #### 5 7021-8 ####[facility] LABORATORYCLIA [id number] [address] Differential cell count method Nom (Bld) Auto Normal [facility] Comment on above: Order Comment: Speci men Type: BLOOD SPECIMENOrdering Facility: [facility] Address: [address] [place] [address] Performed By: #### 5 7021-8 ####[facility] LABORATORYCLIA [id number] [address] [place] Eosinophils (Bld) [#/Vol] 0.21 10*3/uL Normal <0.46 [facility] Comment on above: Order Comment: Speci men Type: BLOOD SPECIMENOrdering Facility: [facility] Address: [address] [place] [address] Performed By: #### 5 7021-8 ####[facility] LABORATORYCLIA [id number] [address] [place] Eosinophils/100 WBC (Bld) 1.7 % Normal [facility] Comment on above: Order Comment: Speci men Type: BLOOD SPECIMENOrdering Facility: [facility] Address: [address] [place] [address] Performed By: #### 5 7021-8 ####[facility] LABORATORYCLIA [id number] [address] Erythrocyte distribution width (RBC) [Ratio] 18.1 % High 11.5-15.0 [facility] Comment on above: Order Comment: Speci men Type: BLOOD SPECIMENOrdering Facility: [facility] Address: [address] [place] [address] Performed By: #### 5 7021-8 ####[facility] LABORATORYCLIA [id number] [address] Hematocrit (Bld) [Volume fraction] 32.0 % Low 39.0-51.0 [facility] Comment on above: Order Comment: Speci men Type: BLOOD SPECIMENOrdering Facility: [facility] Address: [address] [place] [address] Performed By: #### 5 7021-8 ####[facility] LABORATORYCLIA [id number] [address] Hemoglobin (Bld) [Mass/Vol] 10.0 g/dL Low 13.0-17.0 [facility] Comment on above: Order Comment: Speci men Type: BLOOD SPECIMENOrdering Facility: [facility] Address: [address] [place] [address] Performed By: #### 5 7021-8 ####[facility] LABORATORYCLIA [id number] [address] IMMATURE GRAN % 0.6 % Normal [facility] Comment on above: Order Comment: Speci men Type: BLOOD SPECIMENOrdering Facility: [facility] Address: [address] [place] [address] Performed By: #### 5 7021-8 ####[facility] LABORATORYCLIA [id number] [address] IMMATURE GRAN ABS 0.08 k/uL Normal <0.10 [facility] Comment on above: Order Comment: Speci men Type: BLOOD SPECIMENOrdering Facility: [facility] Address: [address] [place] [address] Performed By: #### 5 7021-8 ####[facility] LABORATORYCLIA [id number] [address] Lymphocytes (Bld) [#/Vol] 2.55 10*3/uL Normal 1.00-4.00 [facility] Comment on above: Order Comment: Speci men Type: BLOOD SPECIMENOrdering Facility: [facility] Address: [address] [place] [address] Performed By: #### 5 7021-8 ####[facility] LABORATORYCLIA [id number] [address] Lymphocytes/100 WBC (Bld) 20.5 % Normal [facility] Comment on above: Order Comment: Speci men Type: BLOOD SPECIMENOrdering Facility: [facility] Address: [address] [place] [address] Performed By: #### 5 7021-8 ####[facility] LABORATORYCLIA [id number] [address] MCH (RBC) [Entitic mass] 28.9 pg Normal 26.0-34.0 [facility] Comment on above: Order Comment: Speci men Type: BLOOD SPECIMENOrdering Facility: [facility] Address: [address] [place] [address] Performed By: #### 5 7021-8 ####[facility] LABORATORYCLIA [id number] [address] STATES [facility] MCHC (RBC) [Mass/Vol] 31.3 g/dL Normal 30.5-36.0 [facility] Comment on above: Order Comment: Speci men Type: BLOOD SPECIMENOrdering Facility: [facility] Address: [address] [place] [address] Performed By: #### 5 7021-8 ####[facility] LABORATORYCLIA [id number] [address] [place] [facility] MCV (RBC) [Entitic vol] 92.5 fL Normal 80.0-100.0 [facility] Comment on above: Order Comment: Speci men Type: BLOOD SPECIMENOrdering Facility: [facility] Address: [address] [place] [address] Performed By: #### 5 7021-8 ####[facility] LABORATORYCLIA [id number] [place] [address] [place] Monocytes (Bld) [#/Vol] 0.85 10*3/uL Normal <0.87 [facility] Comment on above: Order Comment: Speci men Type: BLOOD SPECIMENOrdering Facility: [facility] Address: [address] [address] Performed By: #### 5 7021-8 ####[facility] LABORATORYCLIA [id number] [address] [place] Monocytes/100 WBC (Bld) 6.8 % Normal [facility] Comment on above: Order Comment: Speci men Type: BLOOD SPECIMENOrdering Facility: [facility] Address: [address] [place] [address] Performed By: #### 5 7021-8 ####[facility] LABORATORYCLIA [id number] [address] [place] Neutrophils (Bld) [#/Vol] 8.68 10*3/uL High 1.45-7.50 [facility] Comment on above: Order Comment: Speci men Type: BLOOD SPECIMENOrdering Facility: [facility] Address: [address] [place] [address] Performed By: #### 5 7021-8 ####[facility] LABORATORYCLIA [id number] [address] [place] Neutrophils/100 WBC (Bld) 70.0 % Normal [facility] Comment on above: Order Comment: Speci men Type: BLOOD SPECIMENOrdering Facility: [facility] Address: [address] [address] Performed By: #### 5 7021-8 ####[facility] LABORATORYCLIA [id number] [place] [address] [place] Nucleated RBC (Bld) [#/Vol] 10*3/uL Normal <0.01 [facility] Comment on above: Order Comment: Speci men Type: BLOOD SPECIMENOrdering Facility: [facility] Address: [address] [place] [address] Performed By: #### 5 7021-8 ####[facility] LABORATORYCLIA [id number] [address] [place] Nucleated RBC/100 WBC (Bld) [Ratio] 0.0 /100 WBC Normal [facility] Comment on above: Order Comment: Speci men Type: BLOOD SPECIMENOrdering Facility: [facility] Address: [address] [place] [address] Performed By: #### 5 7021-8 ####[facility] LABORATORYCLIA [id number] [address] [place] Platelet mean volume (Bld) [Entitic vol] 10.0 fL Normal 9.0-12.7 [facility] Comment on above: Order Comment: Speci men Type: BLOOD SPECIMENOrdering Facility: [facility] Address: [address] [place] [address] Performed By: #### 5 7021-8 ####[facility] LABORATORYCLIA [id number] [address] [facility] Platelets (Bld) [#/Vol] 393 10*3/uL Normal 150-400 [facility] Comment on above: Order Comment: Speci men Type: BLOOD SPECIMENOrdering Facility: [facility] Address: [address] [place] [address] Performed By: #### 5 7021-8 ####[facility] LABORATORYCLIA [id number] [address] [place] RBC (Bld) [#/Vol] 3.46 10*6/uL Low 4.20-6.00 [facility] Comment on above: Order Comment: Speci men Type: BLOOD SPECIMENOrdering Facility: [facility] Address: [address] [place] [address] Performed By: #### 5 7021-8 ####[facility] LABORATORYCLIA [id number] [address] [place] WBC (Bld) [#/Vol] 12.42 10*3/uL High 3.70-11.00 [facility] Comment on above: Order Comment: Speci men Type: BLOOD SPECIMENOrdering Facility: [facility] Address: [address] [place] [address] Performed By: #### 5 7021-8 ####[facility] LABORATORYCLIA [id number] [address] [facility] CT BRAIN WO IVCONon 08-05-19 CT BRAIN WO IVCON Normal [facility] Lactate (Bld) [Moles/Vol]on 08-04-2021 Lactate [Moles/Vol] 1.4 mmol/L Normal 0.5-2.2 [facility] Comment on above: Order Comment: Speci men Type: BLOOD SPECIMENOrdering Facility: [facility] Address: [address] [place] [address] Performed By: #### 3 2693-4 ####[facility] LABORATORYCLIA [id number] [address] PROCALCITONIN (LAB)on 2021 Procalcitonin [Mass/Vol] 0.08 ng/mL Normal <0.09 [facility] Comment on above: Order Comment: Speci men Type: BLOOD SPECIMENOrdering Facility: [facility] Address: [address] [place] [address] Result Comment: For a guided interpretation of test results, please visit the Change in Procalcitonin Calculator, [email or web address]. Performed By: #### P ROCAL ####[facility] LABORATORYCLIA [id number] [address] Prealbumin [Mass/Vol]on 07-07 Prealbumin Nephelometry [Mass/Vol] 35 mg/dL Normal 17-36 [facility] Comment on above: Order Comment: Speci men Type: BLOOD SPECIMENOrdering Facility: [facility] Address: [address] [place] [address] Performed By: #### 1 4338-8 ####[facility] LABORATORYCLIA [id number] [address] SARS-CoV-2 RNA Resp Ql MEGAN+p robeon 08-04-2021 SARS-CoV-2 (COVID-19) RNA MEGAN+probe Ql (Resp) COVID 19 RESULT: SARS-CoV-2 (Agent of COVID-19) Not Detected by RT-PCR or equivalent method. This test has been authorized by FDA under an Emergency Use Authorization (EUA). [facility] Comment on above: Performed By: #### 9 4500-6 ####[facility] LABORATORYCLIA [id number] [address] TYPE AND SCREENon 08-04-2021 ABO O [facility] Comment on above: Order Comment: Speci men Type: BLOOD SPECIMENOrdering Facility: [facility] Address: [address] [place] [address] Performed By: #### T SCR ####[facility] BLOOD BANKCLIA [id number] [address] HISTORICAL AB SCR STATUS Negative [facility] Comment on above: Order Comment: Speci men Type: BLOOD SPECIMENOrdering Facility: [facility] Address: [address] [place] [address] Performed By: #### T SCR ####[facility] BLOOD BANKCLIA [id number] [address] Rh Nom (Bld) Positive [facility] Comment on above: Order Comment: Speci men Type: BLOOD SPECIMENOrdering Facility: [facility] Address: [address] [place] [address] Performed By: #### T SCR ####[facility] BLOOD BANKCLIA [id number] [address] TYPE AND SCREEN EXPIRATION 08/07/2021 23:59 Normal [facility] Comment on above: Order Comment: Speci men Type: BLOOD SPECIMENOrdering Facility: [facility] Address: [address] [place] [address] Performed By: #### T SCR ####[facility] BLOOD BANKCLIA [id number] [place] [id number] [place] aPTT PPPon 08-04-2021 aPTT Coag (PPP) [Time] 51.8 s High 23.0-32.4 [facility] Comment on above: Order Comment: Speci men Type: BLOOD SPECIMENOrdering Facility: [facility] Address: [address] [place] [address] Performed By: #### 1 4979-9 ####[facility] LABORATORYCLIA [id number] [place] [id number] [place] Basic metabolic 2000 panelon 08-03-2021 Anion gap [Moles/Vol] 9 mmol/L Normal 9-18 [facility] Comment on above: Order Comment: Speci men Type: BLOOD SPECIMENOrdering Facility: [facility] Address: [address] [place] [address] Performed By: #### 2 4321-2, , 2776- ####[facility] LABORATORYIA [id number] [place] [address] [place] Calcium [Mass/Vol] 9.3 mg/dL Normal 8.5-10.2 [facility] Comment on above: Order Comment: Speci men Type: BLOOD SPECIMENOrdering Facility: [facility] Address: [address] [place] [address] Performed By: #### 2 4321-2, , 277-1 ####[facility] LABORATORYCLIA [id number] [place] [address] [place] Chloride [Moles/Vol] 97 mmol/L Normal 97-105 [facility] Comment on above: Order Comment: Speci men Type: BLOOD SPECIMENOrdering Facility: [facility] Address: [address] [place] [address] Performed By: #### 2 4321-2, , 277- ####[facility] LABORATORYCLIA [id number] [place] [address] [place] CO2 [Moles/Vol] 27 mmol/L Normal 22-30 [facility] Comment on above: Order Comment: Speci men Type: BLOOD SPECIMENOrdering Facility: [facility] Address: [address] [place] [address] Performed By: #### 2 4321-2, , 2776-05 ####[facility] LABORATORYCLIA [id number] [address] [place] Creatinine [Mass/Vol] 0.63 mg/dL Low 0.73-1.22 [facility] Comment on above: Order Comment: Speci men Type: BLOOD SPECIMENOrdering Facility: [facility] Address: [address] [place] [address] Performed By: #### 2 4321-2, , 2776-05 ####[facility] LABORATORYCLIA [id number] [address] ESTIMATED GLOMERULAR FILTRATION RATE 103 mL/min/1.73m??? Normal >=60 [facility] Comment on above: Order Comment: Speci men Type: BLOOD SPECIMENOrdering Facility: [facility] Address: [address] [place] [address] Result Comment: Luzmaria mated Glomerular Filtration Rate [...] Performed By: #### 2 4321-2, , 2776-05 ####[facility] LABORATORYCLIA [id number] [address] [place] Glucose [Mass/Vol] 136 mg/dL High 74-99 [facility] Comment on above: Order Comment: Speci men Type: BLOOD SPECIMENOrdering Facility: [facility] Address: [address] [place] [address] Result Comment: The [place] [employer] (ADA) provides guidance for cutoff [...] Standards of Medical Care in Diabetes 2016, [place] [employer]. Diabetes Care. 2016.39(Suppl 1). Performed By: #### 2 4321-2, , 2776-05 ####[facility] LABORATORYCLIA [id number] [place] [address] [place] Potassium [Moles/Vol] 4.1 mmol/L Normal 3.7-5.1 [facility] Comment on above: Order Comment: Speci men Type: BLOOD SPECIMENOrdering Facility: [facility] Address: [address] [address] Performed By: #### 2 4321-2, , 2776-05 ####[facility] LABORATORYCLIA [id number] [place] [address] [place] Sodium [Moles/Vol] 133 mmol/L Low 136-144 [facility] Comment on above: Order Comment: Speci men Type: BLOOD SPECIMENOrdering Facility: [facility] Address: [address] Performed By: #### 2 4321-2, , 2776-05 ####[facility] LABORATORYCLIA [id number] [place] [address] [place] Urea nitrogen [Mass/Vol] 40 mg/dL High 9-24 [facility] Comment on above: Order Comment: Johni men Type: BLOOD SPECIMENOrdering Facility: [facility] Address: [address] Performed By: #### 2 432-2, 54997-1, 2777-1 ####[facility] LABORATORYCLIA [id number] [address] [place] CASE MANAGEMon 08-03-2021 CASE MANAGEM Normal [facility] CBC W Auto Differential pane l (Bld)on 08-03-2021 Basophils (Bld) [#/Vol] 0.06 10*3/uL Normal <0.11 [facility] Comment on above: Order Comment: Speci men Type: BLOOD SPECIMENOrdering Facility: [facility] Address: [address] [place] [address] Performed By: #### 5 7021-8 ####[facility] LABORATORYCLIA [id number] [address] STATES [facility] Basophils/100 WBC (Bld) 0.5 % Normal [facility] Comment on above: Order Comment: Speci men Type: BLOOD SPECIMENOrdering Facility: [facility] Address: [address] [place] [address] Performed By: #### 5 7021-8 ####[facility] LABORATORYCLIA [id number] [address] Differential cell count method Nom (Bld) Auto Normal [facility] Comment on above: Order Comment: Speci men Type: BLOOD SPECIMENOrdering Facility: [facility] Address: [address] [place] [address] Performed By: #### 5 7021-8 ####[facility] LABORATORYCLIA [id number] [address] [place] Eosinophils (Bld) [#/Vol] 0.23 10*3/uL Normal <0.46 [facility] Comment on above: Order Comment: Speci men Type: BLOOD SPECIMENOrdering Facility: [facility] Address: [address] [place] [address] Performed By: #### 5 7021-8 ####[facility] LABORATORYCLIA [id number] [address] [place] Eosinophils/100 WBC (Bld) 1.8 % Normal [facility] Comment on above: Order Comment: Speci men Type: BLOOD SPECIMENOrdering Facility: [facility] Address: [address] [place] [address] Performed By: #### 5 7021-8 ####[facility] LABORATORYCLIA [id number] [address] [place] Erythrocyte distribution width (RBC) [Ratio] 17.6 % High 11.5-15.0 [facility] Comment on above: Order Comment: Speci men Type: BLOOD SPECIMENOrdering Facility: [facility] Address: [address] [place] [address] Performed By: #### 5 7021-8 ####[facility] LABORATORYCLIA [id number] [address] STATES [facility] Hematocrit (Bld) [Volume fraction] 30.7 % Low 39.0-51.0 [facility] Comment on above: Order Comment: Speci men Type: BLOOD SPECIMENOrdering Facility: [facility] Address: [address] [place] [address] Performed By: #### 5 7021-8 ####[facility] LABORATORYCLIA [id number] [address] [place] Hemoglobin (Bld) [Mass/Vol] 9.3 g/dL Low 13.0-17.0 [facility] Comment on above: Order Comment: Speci men Type: BLOOD SPECIMENOrdering Facility: [facility] Address: [address] [place] [address] Performed By: #### 5 7021-8 ####[facility] LABORATORYCLIA [id number] [address] [place] IMMATURE GRAN % 0.6 % Normal [facility] Comment on above: Order Comment: Speci men Type: BLOOD SPECIMENOrdering Facility: [facility] Address: [address] [place] [address] Performed By: #### 5 7021-8 ####[facility] LABORATORYCLIA [id number] [address] [facility] IMMATURE GRAN ABS 0.08 k/uL Normal <0.10 [facility] Comment on above: Order Comment: Speci men Type: BLOOD SPECIMENOrdering Facility: [facility] Address: [address] [place] [address] Performed By: #### 5 7021-8 ####[facility] LABORATORYCLIA [id number] [address] [place] Lymphocytes (Bld) [#/Vol] 2.45 10*3/uL Normal 1.00-4.00 [facility] Comment on above: Order Comment: Speci men Type: BLOOD SPECIMENOrdering Facility: [facility] Address: [address] [place] [address] Performed By: #### 5 7021-8 ####[facility] LABORATORYCLIA [id number] [address] Lymphocytes/100 WBC (Bld) 19.7 % Normal [facility] Comment on above: Order Comment: Speci men Type: BLOOD SPECIMENOrdering Facility: [facility] Address: [address] [place] [address] Performed By: #### 5 7021-8 ####[facility] LABORATORYCLIA [id number] [address] MCH (RBC) [Entitic mass] 28.2 pg Normal 26.0-34.0 [facility] Comment on above: Order Comment: Speci men Type: BLOOD SPECIMENOrdering Facility: [facility] Address: [address] [place] [address] Performed By: #### 5 7021-8 ####[facility] LABORATORYCLIA [id number] [address] MCHC (RBC) [Mass/Vol] 30.3 g/dL Low 30.5-36.0 [facility] Comment on above: Order Comment: Speci men Type: BLOOD SPECIMENOrdering Facility: [facility] Address: [address] [address] Performed By: #### 5 7021-8 ####[facility] LABORATORYCLIA [id number] [address] [place] MCV (RBC) [Entitic vol] 93.0 fL Normal 80.0-100.0 [facility] Comment on above: Order Comment: Speci men Type: BLOOD SPECIMENOrdering Facility: [facility] Address: [address] [place] [address] Performed By: #### 5 7021-8 ####[facility] LABORATORYCLIA [id number] [address] [place] Monocytes (Bld) [#/Vol] 0.72 10*3/uL Normal <0.87 [facility] Comment on above: Order Comment: Speci men Type: BLOOD SPECIMENOrdering Facility: [facility] Address: [address] [place] [address] Performed By: #### 5 7021-8 ####[facility] LABORATORYCLIA [id number] [address] Monocytes/100 WBC (Bld) 5.8 % Normal [facility] Comment on above: Order Comment: Speci men Type: BLOOD SPECIMENOrdering Facility: [facility] Address: [address] [place] [address] Performed By: #### 5 7021-8 ####[facility] LABORATORYCLIA [id number] [address] [place] Neutrophils (Bld) [#/Vol] 8.92 10*3/uL High 1.45-7.50 [facility] Comment on above: Order Comment: Speci men Type: BLOOD SPECIMENOrdering Facility: [facility] Address: [address] [place] [address] Performed By: #### 5 7021-8 ####[facility] LABORATORYCLIA [id number] [address] [place] Neutrophils/100 WBC (Bld) 71.6 % Normal [facility] Comment on above: Order Comment: Speci men Type: BLOOD SPECIMENOrdering Facility: [facility] Address: [address] Performed By: #### 5 7021-8 ####[facility] SERVICES LABORATORYCLIA [id number] [address] Nucleated RBC (Bld) [#/Vol] 10*3/uL Normal <0.01 [facility] Comment on above: Order Comment: Speci men Type: BLOOD SPECIMENOrdering Facility: [facility] Address: [address] [place] [address] Performed By: #### 5 7021-8 ####[facility] LABORATORYCLIA [id number] [address] [place] Nucleated RBC/100 WBC (Bld) [Ratio] 0.0 /100 WBC Normal [facility] Comment on above: Order Comment: Speci men Type: BLOOD SPECIMENOrdering Facility: [facility] Address: [address] [place] [address] Performed By: #### 5 7021-8 ####[facility] LABORATORYCLIA [id number] [address] [place] Platelet mean volume (Bld) [Entitic vol] 10.2 fL Normal 9.0-12.7 [facility] Comment on above: Order Comment: Speci men Type: BLOOD SPECIMENOrdering Facility: [facility] Address: [address] Performed By: #### 5 7021-8 ####[facility] SERVICES LABORATORYCLIA [id number] [address] [place] Platelets (Bld) [#/Vol] 352 10*3/uL Normal 150-400 [facility] Comment on above: Order Comment: Speci men Type: BLOOD SPECIMENOrdering Facility: [facility] Address: [address] [address] Performed By: #### 5 7021-8 ####[facility] LABORATORYCLIA [id number] [address] [facility] RBC (Bld) [#/Vol] 3.30 10*6/uL Low 4.20-6.00 [facility] Comment on above: Order Comment: Speci men Type: BLOOD SPECIMENOrdering Facility: [facility] Address: [address] [place] [address] Performed By: #### 5 7021-8 ####[facility] SERVICES LABORATORYCLIA [id number] [address] [facility] WBC (Bld) [#/Vol] 12.46 10*3/uL High 3.70-11.00 [facility] Comment on above: Order Comment: Speci men Type: BLOOD SPECIMENOrdering Facility: [facility] Address: [address] [place] [address] Performed By: #### 5 7021-8 ####[facility] LABORATORYCLIA [id number] [address] CONSULT PROGon 08-03-2021 CONSULT PROG Normal [facility] Magnesium SerPl-ncon 08-03 Magnesium [Mass/Vol] 2.2 mg/dL Normal 1.7-2.3 [facility] Comment on above: Order Comment: Speci men Type: BLOOD SPECIMENOrdering Facility: [facility] Address: [address] [place] [address] Performed By: #### 2 4321-2, 28013-8, 2777-1 ####[facility] SERVICES LABORATORYCLIA [id number] [address] [facility] NURSING PROGon 08-03-2021 NURSING PROG Normal [facility] Phosphate SerPl-mCncon 08-03 Phosphate [Mass/Vol] 4.2 mg/dL Normal 2.7-4.8 [facility] Comment on above: Order Comment: Speci men Type: BLOOD SPECIMENOrdering Facility: [facility] Address: [address] [place] [address] Performed By: #### 2 4321-2, 30649-5, 2777-1 ####[facility] LABORATORYCLIA [id number] [place] [address] [place] aPTT PPPon 08-03-2021 aPTT Coag (PPP) [Time] 50.0 s High 23.0-32.4 [facility] Comment on above: Order Comment: Speci men Type: BLOOD SPECIMENOrdering Facility: [facility] Address: [address] [place] [address] Performed By: #### 1 4979-9 ####[facility] LABORATORYCLIA [id number] [address] [place] CBC W Auto Differential pane l (Bld)on 08-02-2021 Basophils (Bld) [#/Vol] 10*3/uL Normal <0.11 [facility] Comment on above: Order Comment: Speci men Type: BLOOD SPECIMENOrdering Facility: [facility] Address: [address] [place] [address] Performed By: #### 5 7021-8 ####[facility] LABORATORYCLIA [id number] [address] [place] Basophils/100 WBC (Bld) 0.2 % Normal [facility] Comment on above: Order Comment: Speci men Type: BLOOD SPECIMENOrdering Facility: [facility] Address: [address] [place] [address] Performed By: #### 5 7021-8 ####[facility] LABORATORYCLIA [id number] [address] Differential cell count method Nom (Bld) Auto Normal [facility] Comment on above: Order Comment: Speci men Type: BLOOD SPECIMENOrdering Facility: [facility] Address: [address] [place] [address] Performed By: #### 5 7021-8 ####[facility] LABORATORYCLIA [id number] [place] [address] [place] Eosinophils (Bld) [#/Vol] 10*3/uL Normal <0.46 [facility] Comment on above: Order Comment: Speci men Type: BLOOD SPECIMENOrdering Facility: [facility] Address: [address] [place] [address] Performed By: #### 5 7021-8 ####[facility] LABORATORYCLIA [id number] [address] Eosinophils/100 WBC (Bld) 0.0 % Normal [facility] Comment on above: Order Comment: Speci men Type: BLOOD SPECIMENOrdering Facility: [facility] Address: [address] [place] [address] Performed By: #### 5 7021-8 ####[facility] LABORATORYCLIA [id number] [address] [place] Erythrocyte distribution width (RBC) [Ratio] 17.3 % High 11.5-15.0 [facility] Comment on above: Order Comment: Speci men Type: BLOOD SPECIMENOrdering Facility: [facility] Address: [address] [place] [address] Performed By: #### 5 7021-8 ####[facility] SERVICES LABORATORYCLIA [id number] [address] [place] Hematocrit (Bld) [Volume fraction] 30.8 % Low 39.0-51.0 [facility] Comment on above: Order Comment: Speci men Type: BLOOD SPECIMENOrdering Facility: [facility] Address: [address] [place] [address] Performed By: #### 5 7021-8 ####[facility] LABORATORYCLIA [id number] [address] [place] Hemoglobin (Bld) [Mass/Vol] 9.7 g/dL Low 13.0-17.0 [facility] Comment on above: Order Comment: Speci men Type: BLOOD SPECIMENOrdering Facility: [facility] Address: [address] [place] [address] Performed By: #### 5 7021-8 ####[facility] LABORATORYCLIA [id number] [address] IMMATURE GRAN % 0.5 % Normal [facility] Comment on above: Order Comment: Speci men Type: BLOOD SPECIMENOrdering Facility: [facility] Address: [address] [place] [address] Performed By: #### 5 7021-8 ####[facility] LABORATORYCLIA [id number] [address] IMMATURE GRAN ABS 0.07 k/uL Normal <0.10 [facility] Comment on above: Order Comment: Speci men Type: BLOOD SPECIMENOrdering Facility: [facility] Address: [address] [place] [address] Performed By: #### 5 7021-8 ####[facility] LABORATORYCLIA [id number] [address] [place] Lymphocytes (Bld) [#/Vol] 1.60 10*3/uL Normal 1.00-4.00 [facility] Comment on above: Order Comment: Speci men Type: BLOOD SPECIMENOrdering Facility: [facility] Address: [address] [place] [address] Performed By: #### 5 7021-8 ####[facility] LABORATORYCLIA [id number] [address] Lymphocytes/100 WBC (Bld) 12.1 % Normal [facility] Comment on above: Order Comment: Speci men Type: BLOOD SPECIMENOrdering Facility: [facility] Address: [address] [place] [address] Performed By: #### 5 7021-8 ####[facility] LABORATORYCLIA [id number] [address] [place] MCH (RBC) [Entitic mass] 28.6 pg Normal 26.0-34.0 [facility] Comment on above: Order Comment: Speci men Type: BLOOD SPECIMENOrdering Facility: [facility] Address: [address] [place] [address] Performed By: #### 5 7021-8 ####[facility] LABORATORYCLIA [id number] [address] STATES [facility] MCHC (RBC) [Mass/Vol] 31.5 g/dL Normal 30.5-36.0 [facility] Comment on above: Order Comment: Speci men Type: BLOOD SPECIMENOrdering Facility: [facility] Address: [address] [place] [address] Performed By: #### 5 7021-8 ####[facility] LABORATORYCLIA [id number] [address] MCV (RBC) [Entitic vol] 90.9 fL Normal 80.0-100.0 [facility] Comment on above: Order Comment: Speci men Type: BLOOD SPECIMENOrdering Facility: [facility] Address: [address] [place] [address] Performed By: #### 5 7021-8 ####[facility] LABORATORYCLIA [id number] [address] Monocytes (Bld) [#/Vol] 0.39 10*3/uL Normal <0.87 [facility] Comment on above: Order Comment: Speci men Type: BLOOD SPECIMENOrdering Facility: [facility] Address: [address] [place] [address] Performed By: #### 5 7021-8 ####[facility] LABORATORYCLIA [id number] [address] Monocytes/100 WBC (Bld) 3.0 % Normal [facility] Comment on above: Order Comment: Speci men Type: BLOOD SPECIMENOrdering Facility: [facility] Address: [address] [place] [address] Performed By: #### 5 7021-8 ####[facility] LABORATORYCLIA [id number] [address] [place] Neutrophils (Bld) [#/Vol] 11.09 10*3/uL High 1.45-7.50 [facility] Comment on above: Order Comment: Speci men Type: BLOOD SPECIMENOrdering Facility: [facility] Address: [address] [address] Performed By: #### 5 7021-8 ####[facility] LABORATORYCLIA [id number] [address] Neutrophils/100 WBC (Bld) 84.2 % Normal [facility] Comment on above: Order Comment: Speci men Type: BLOOD SPECIMENOrdering Facility: [facility] Address: [address] [address] Performed By: #### 5 7021-8 ####[facility] LABORATORYCLIA [id number] [address] Nucleated RBC (Bld) [#/Vol] 10*3/uL Normal <0.01 [facility] Comment on above: Order Comment: Speci men Type: BLOOD SPECIMENOrdering Facility: [facility] Address: [address] [place] [address] Performed By: #### 5 7021-8 ####[facility] LABORATORYCLIA [id number] [address] Nucleated RBC/100 WBC (Bld) [Ratio] 0.0 /100 WBC Normal [facility] Comment on above: Order Comment: Speci men Type: BLOOD SPECIMENOrdering Facility: [facility] Address: [address] [place] [address] Performed By: #### 5 7021-8 ####[facility] LABORATORYCLIA [id number] [address] Platelet mean volume (Bld) [Entitic vol] 10.0 fL Normal 9.0-12.7 [facility] Comment on above: Order Comment: Speci men Type: BLOOD SPECIMENOrdering Facility: [facility] Address: [address] [place] [address] Performed By: #### 5 7021-8 ####[facility] LABORATORYCLIA [id number] [address] Platelets (Bld) [#/Vol] 358 10*3/uL Normal 150-400 [facility] Comment on above: Order Comment: Speci men Type: BLOOD SPECIMENOrdering Facility: [facility] Address: [address] [place] [address] Performed By: #### 5 7021-8 ####[facility] LABORATORYCLIA [id number] [address] [facility] RBC (Bld) [#/Vol] 3.39 10*6/uL Low 4.20-6.00 [facility] Comment on above: Order Comment: Speci men Type: BLOOD SPECIMENOrdering Facility: [facility] Address: [address] [place] [address] Performed By: #### 5 7021-8 ####[facility] LABORATORYCLIA [id number] [address] WBC (Bld) [#/Vol] 13.17 10*3/uL High 3.70-11.00 [facility] Comment on above: Order Comment: Speci men Type: BLOOD SPECIMENOrdering Facility: [facility] Address: [address] [place] [address] Performed By: #### 5 7021-8 ####[facility] LABORATORYCLIA [id number] [address] NURSING PROGon 08-02-2021 NURSING PROG Normal [facility] THERAPY NTon 08-02-2021 THERAPY NT Normal [facility] aPTT PPPon 08-02-2021 aPTT Coag (PPP) [Time] 54.9 s High 23.0-32.4 [facility] Comment on above: Order Comment: Speci men Type: BLOOD SPECIMENOrdering Facility: [facility] Address: [address] [place] [address] Performed By: #### 1 4979-9 ####[facility] LABORATORYCLIA [id number] [address] [facility] ALLIED HEALTHon 08-01-2021 ALLIED HEALTH Normal [facility] ALLIED HEALTH Normal [facility] Basic metabolic 2000 panelon 08-01-2021 Anion gap [Moles/Vol] 12 mmol/L Normal 9-18 [facility] Comment on above: Order Comment: Speci men Type: BLOOD SPECIMENOrdering Facility: [facility] Address: [address] [place] [address] Performed By: #### 2 4321-2, 14441-4, 71357-6, 2777-1 ####[facility] LABORATORYCLIA [id number] [place] [address] [place] Calcium [Mass/Vol] 9.1 mg/dL Normal 8.5-10.2 [facility] Comment on above: Order Comment: Speci men Type: BLOOD SPECIMENOrdering Facility: [facility] Address: [address] [place] [address] Performed By: #### 2 4321-2, 17545-8, 93652-1, 2777-1 ####[facility] LABORATORYCLIA [id number] [place] [address] [place] Chloride [Moles/Vol] 96 mmol/L Low 97-105 [facility] Comment on above: Order Comment: Speci men Type: BLOOD SPECIMENOrdering Facility: [facility] Address: [address] [place] [address] Performed By: #### 2 4321-2, 11670-4, 68800-2, 2777-1 ####[facility] LABORATORYCLIA [id number] [place] [address] [place] CO2 [Moles/Vol] 27 mmol/L Normal 22-30 [facility] Comment on above: Order Comment: Speci men Type: BLOOD SPECIMENOrdering Facility: [facility] Address: [address] [place] [address] Performed By: #### 2 4321-2, 13888-0, 49697-9, 2777-1 ####[facility] LABORATORYCLIA [id number] [place] [address] [place] Creatinine [Mass/Vol] 0.64 mg/dL Low 0.73-1.22 [facility] Comment on above: Order Comment: Shira feldman Type: BLOOD SPECIMENOrdering Facility: [facility] Address: [address] [address] Performed By: #### 2 4321-2, 06655-4, 74422-7, 2777-1 ####[facility] LABORATORYCLIA [id number] [address] ESTIMATED GLOMERULAR FILTRATION RATE 102 mL/min/1.73m??? Normal >=60 [facility] Comment on above: Order Comment: Shira feldman Type: BLOOD SPECIMENOrdering Facility: [facility] Address: [address] [place] [address] Result Comment: Luzmaria mated Glomerular Filtration Rate [...] actual GFR. Performed By: #### 2 4321-2, 24655-3, 06840-6, 2777-1 ####[facility] LABORATORYCLIA [id number] [address] STATES [facility] Glucose [Mass/Vol] 122 mg/dL High 74-99 [facility] Comment on above: Order Comment: Shira feldman Type: BLOOD SPECIMENOrdering Facility: [facility] Address: [address] [address] Result Comment: The [place] [employer] (ADA) provides guidance for cutoff [...] Standards of Medical Care in Diabetes 2016, [place] [employer]. Diabetes Care. 2016.39(Suppl 1). Performed By: #### 2 4321-2, 62770-7, 37076-0, 2777-1 ####[facility] LABORATORYCLIA [id number] [place] [address] [place] Potassium [Moles/Vol] 4.2 mmol/L Normal 3.7-5.1 [facility] Comment on above: Order Comment: Speci men Type: BLOOD SPECIMENOrdering Facility: [facility] Address: [address] [place] [address] Performed By: #### 2 4321-2, 10976-7, 14451-6, 2777-1 ####[facility] LABORATORYCLIA [id number] [address] STATES [facility] Sodium [Moles/Vol] 135 mmol/L Low 136-144 [facility] Comment on above: Order Comment: Speci men Type: BLOOD SPECIMENOrdering Facility: [facility] Address: [address] [place] [address] Performed By: #### 2 4321-2, 45204-5, 47291-3, 277-1 ####[facility] LABORATORYCLIA [id number] [address] [place] Urea nitrogen [Mass/Vol] 36 mg/dL High 9-24 [facility] Comment on above: Order Comment: Speci men Type: BLOOD SPECIMENOrdering Facility: [facility] Address: [address] [place] [address] Performed By: #### 2 4321-2, 22941-4, 35268-4, 2777-1 ####[facility] LABORATORYCLIA [id number] [place] [address] [place] CASE MANAGEMon 08-01-2021 CASE MANAGEM Normal [facility] CBC W Auto Differential pane l (Bld)on 08-01-2021 Basophils (Bld) [#/Vol] 0.04 10*3/uL Normal <0.11 [facility] Comment on above: Order Comment: Speci men Type: BLOOD SPECIMENOrdering Facility: [facility] Address: [address] [place] [address] Performed By: #### 5 7021-8 ####[facility]ORATORYCLIA [id number] [address] [place] Basophils/100 WBC (Bld) 0.3 % Normal [facility] Comment on above: Order Comment: Speci men Type: BLOOD SPECIMENOrdering Facility: [facility] Address: [address] [place] [address] Performed By: #### 5 7021-8 ####[facility]ORATORYCLIA [id number] [address] [place] Differential cell count method Nom (Bld) Auto Normal [facility] Comment on above: Order Comment: Speci men Type: BLOOD SPECIMENOrdering Facility: [facility] Address: [address] [place] [address] Performed By: #### 5 7021-8 ####[facility]ORATORYCLIA [id number] [address] [place] Eosinophils (Bld) [#/Vol] 0.37 10*3/uL Normal <0.46 [facility] Comment on above: Order Comment: Speci men Type: BLOOD SPECIMENOrdering Facility: [facility] Address: [address] [place] [address] Performed By: #### 5 7021-8 ####[facility]ORATORYCLIA [id number] [address] [place] Eosinophils/100 WBC (Bld) 3.1 % Normal [facility] Comment on above: Order Comment: Speci men Type: BLOOD SPECIMENOrdering Facility: [facility] Address: [address] [place] [address] Performed By: #### 5 7021-8 ####[facility]ORATORYCLIA [id number] [address] Erythrocyte distribution width (RBC) [Ratio] 17.5 % High 11.5-15.0 [facility] Comment on above: Order Comment: Speci men Type: BLOOD SPECIMENOrdering Facility: [facility] Address: [address] [place] [address] Performed By: #### 5 7021-8 ####[facility] LABORATORYCLIA [id number] [address] [facility] Hematocrit (Bld) [Volume fraction] 30.1 % Low 39.0-51.0 [facility] Comment on above: Order Comment: Speci men Type: BLOOD SPECIMENOrdering Facility: [facility] Address: [address] [place] [address] Performed By: #### 5 7021-8 ####[facility]IA [id number] [address] [facility] Hemoglobin (Bld) [Mass/Vol] 9.1 g/dL Low 13.0-17.0 [facility] Comment on above: Order Comment: Speci men Type: BLOOD SPECIMENOrdering Facility: [facility] Address: [address] [place] [address] Performed By: #### 5 7021-8 ####[facility] LABORATORYCLIA [id number] [address] IMMATURE GRAN % 0.6 % Normal [facility] Comment on above: Order Comment: Speci men Type: BLOOD SPECIMENOrdering Facility: [facility] Address: [address] [place] [address] Performed By: #### 5 7021-8 ####[facility] LABORATORYCLIA [id number] [address] IMMATURE GRAN ABS 0.07 k/uL Normal <0.10 [facility] Comment on above: Order Comment: Speci men Type: BLOOD SPECIMENOrdering Facility: [facility] Address: [address] [place] [address] Performed By: #### 5 7021-8 ####[facility] LABORATORYCLIA [id number] [address] Lymphocytes (Bld) [#/Vol] 2.05 10*3/uL Normal 1.00-4.00 [facility] Comment on above: Order Comment: Speci men Type: BLOOD SPECIMENOrdering Facility: [facility] Address: [address] [place] [address] Performed By: #### 5 7021-8 ####[facility] LABORATORYCLIA [id number] [address] Lymphocytes/100 WBC (Bld) 17.1 % Normal [facility] Comment on above: Order Comment: Speci men Type: BLOOD SPECIMENOrdering Facility: [facility] Address: [address] [place] [address] Performed By: #### 5 7021-8 ####[facility] LABORATORYCLIA [id number] [address] MCH (RBC) [Entitic mass] 27.7 pg Normal 26.0-34.0 [facility] Comment on above: Order Comment: Speci men Type: BLOOD SPECIMENOrdering Facility: [facility] Address: [address] [place] [address] Performed By: #### 5 7021-8 ####[facility] LABORATORYCLIA [id number] [address] MCHC (RBC) [Mass/Vol] 30.2 g/dL Low 30.5-36.0 [facility] Comment on above: Order Comment: Speci men Type: BLOOD SPECIMENOrdering Facility: [facility] Address: [address] [place] [address] Performed By: #### 5 7021-8 ####[facility] LABORATORYCLIA [id number] [address] [facility] MCV (RBC) [Entitic vol] 91.5 fL Normal 80.0-100.0 [facility] Comment on above: Order Comment: Speci men Type: BLOOD SPECIMENOrdering Facility: [facility] Address: [address] [place] [address] Performed By: #### 5 7021-8 ####[facility] LABORATORYCLIA [id number] [address] Monocytes (Bld) [#/Vol] 0.53 10*3/uL Normal <0.87 [facility] Comment on above: Order Comment: Speci men Type: BLOOD SPECIMENOrdering Facility: [facility] Address: [address] [place] [address] Performed By: #### 5 7021-8 ####[facility] LABORATORYCLIA [id number] [address] Monocytes/100 WBC (Bld) 4.4 % Normal [facility] Comment on above: Order Comment: Speci men Type: BLOOD SPECIMENOrdering Facility: [facility] Address: [address] [place] [address] Performed By: #### 5 7021-8 ####[facility] LABORATORYCLIA [id number] [address] Neutrophils (Bld) [#/Vol] 8.91 10*3/uL High 1.45-7.50 [facility] Comment on above: Order Comment: Speci men Type: BLOOD SPECIMENOrdering Facility: [facility] Address: [address] [place] [address] Performed By: #### 5 7021-8 ####[facility] LABORATORYCLIA [id number] [address] [place] Neutrophils/100 WBC (Bld) 74.5 % Normal [facility] Comment on above: Order Comment: Speci men Type: BLOOD SPECIMENOrdering Facility: [facility] Address: [address] [place] [address] Performed By: #### 5 7021-8 ####[facility] GENERAL LABORATORYCLIA [id number] [place] [address] [place] Nucleated RBC (Bld) [#/Vol] 10*3/uL Normal <0.01 [facility] Comment on above: Order Comment: Speci men Type: BLOOD SPECIMENOrdering Facility: [facility] Address: [address] [place] [address] Performed By: #### 5 7021-8 ####[facility] LABORATORYCLIA [id number] [address] [place] Nucleated RBC/100 WBC (Bld) [Ratio] 0.0 /100 WBC Normal [facility] Comment on above: Order Comment: Speci men Type: BLOOD SPECIMENOrdering Facility: [facility] Address: [address] [place] [address] Performed By: #### 5 7021-8 ####[facility] LABORATORYCLIA [id number] [address] [place] Platelet mean volume (Bld) [Entitic vol] 10.4 fL Normal 9.0-12.7 [facility] Comment on above: Order Comment: Speci men Type: BLOOD SPECIMENOrdering Facility: [facility] Address: [address] [place] [address] Performed By: #### 5 7021-8 ####[facility] LABORATORYCLIA [id number] [address] [place] Platelets (Bld) [#/Vol] 319 10*3/uL Normal 150-400 [facility] Comment on above: Order Comment: Speci men Type: BLOOD SPECIMENOrdering Facility: [facility] Address: [address] [address] Performed By: #### 5 7021-8 ####[facility] LABORATORYCLIA [id number] [address] [place] RBC (Bld) [#/Vol] 3.29 10*6/uL Low 4.20-6.00 [facility] Comment on above: Order Comment: Speci men Type: BLOOD SPECIMENOrdering Facility: [facility] Address: [address] [place], [place] [address] Performed By: #### 5 7021-8 ####[facility] LABORATORYCLIA [id number] [place] [address] [place] WBC (Bld) [#/Vol] 11.97 10*3/uL High 3.70-11.00 [facility] Comment on above: Order Comment: Speci men Type: BLOOD SPECIMENOrdering Facility: [facility] Address: [address] Performed By: #### 5 7021-8 ####[facility] LABORATORYCLIA [id number] [address] [place] CT BRAIN WO IVCONon 08-02-19 CT BRAIN WO IVCON Normal [facility] Magnesium SerPl-mCncon 08-01 Magnesium [Mass/Vol] 2.4 mg/dL High 1.7-2.3 [facility] Comment on above: Order Comment: Speci men Type: BLOOD SPECIMENOrdering Facility: [facility] Address: [address] [place] [address] Performed By: #### 2 4321-2, 44207-6, 34622-5, 2777-1 ####[facility] LABORATORYCLIA [id number] [address] [place] NURSING PROGon 08-01-2021 NURSING PROG Normal [facility] NUTRITIONon 08-01-2021 NUTRITION Normal [facility] Phosphate SerPl-mCncon 08-01 Phosphate [Mass/Vol] 3.3 mg/dL Normal 2.7-4.8 [facility] Comment on above: Order Comment: Speci men Type: BLOOD SPECIMENOrdering Facility: [facility] Address: [address] [place] [address] Performed By: #### 2 4321-2, 99211-2, 47679-5, 2777-1 ####[facility] LABORATORYCLIA [id number] [address] [place] Prealbumin [Mass/Vol]on 07-06 Prealbumin Nephelometry [Mass/Vol] 30 mg/dL Normal 17-36 [facility] Comment on above: Order Comment: Speci men Type: BLOOD SPECIMENOrdering Facility: [facility] Address: [address] [place] [address] Performed By: #### 2 4321-2, 89595-5, 10769-4, 2777-1 ####[facility] LABORATORYCLIA [id number] [address] THERAPY NTon 08-01-2021 THERAPY NT Normal [facility] THERAPY NT Normal [facility] TYPE AND SCREENon 08-01-2021 ABO O Normal [facility] Comment on above: Order Comment: Speci men Type: BLOOD SPECIMENOrdering Facility: [facility] Address: [address] [place] [address] Performed By: #### T SCR ####[facility] BLOOD BANKCLIA [id number] [address] HISTORICAL AB SCR STATUS Negative [facility] Comment on above: Order Comment: Speci men Type: BLOOD SPECIMENOrdering Facility: [facility] Address: [address] [place] [address] Performed By: #### T SCR ####[facility] BLOOD BANKCLIA [id number] [address] Rh Nom (Bld) Positive [facility] Comment on above: Order Comment: Speci men Type: BLOOD SPECIMENOrdering Facility: [facility] Address: [address] [place] [address] Performed By: #### T SCR ####[facility] BLOOD BANKCLIA [id number] [address] TYPE AND SCREEN EXPIRATION 08/04/2021 23:59 Normal [facility] Comment on above: Order Comment: Speci men Type: BLOOD SPECIMENOrdering Facility: [facility] Address: [address] [place] [address] Performed By: #### T SCR ####[facility] BLOOD BANKCLIA [id number] [address] XR CHEST 1V FRONTALon 2021 XR CHEST 1V FRONTAL Normal [facility] aPTT PPPon 08-01-2021 aPTT Coag (PPP) [Time] 50.9 s High 23.0-32.4 [facility] Comment on above: Order Comment: Speci men Type: BLOOD SPECIMENOrdering Facility: [facility] Address: [address] [place] [address] Performed By: #### 1 4979-9 ####[facility] LABORATORYCLIA [id number] [address] CBC W Auto Differential pane l (Bld)on 07-31-2021 Basophils (Bld) [#/Vol] 0.05 10*3/uL Normal <0.11 [facility] Comment on above: Order Comment: Speci men Type: BLOOD SPECIMENOrdering Facility: [facility] Address: [address] [place] [address] Performed By: #### 5 7021-8 ####[facility] LABORATORYIA [id number] [address] STATES [facility] Basophils/100 WBC (Bld) 0.4 % Normal [facility] Comment on above: Order Comment: Speci men Type: BLOOD SPECIMENOrdering Facility: [facility] Address: [address] [place] [address] Performed By: #### 5 7021-8 ####[facility] LABORATORYCLIA [id number] [address] Differential cell count method Nom (Bld) Auto Normal [facility] Comment on above: Order Comment: Speci men Type: BLOOD SPECIMENOrdering Facility: [facility] Address: [address] [place] [address] Performed By: #### 5 7021-8 ####[facility] LABORATORYCLIA [id number] [place] [address] [place] Eosinophils (Bld) [#/Vol] 0.51 10*3/uL High <0.46 [facility] Comment on above: Order Comment: Speci men Type: BLOOD SPECIMENOrdering Facility: [facility] Address: [address] [place] [address] Performed By: #### 5 7021-8 ####[facility] LABORATORYCLIA [id number] [address] [place] Eosinophils/100 WBC (Bld) 4.5 % Normal [facility] Comment on above: Order Comment: Speci men Type: BLOOD SPECIMENOrdering Facility: [facility] Address: [address] [place] [address] Performed By: #### 5 7021-8 ####[facility] LABORATORYCLIA [id number] [address] [place] Erythrocyte distribution width (RBC) [Ratio] 17.5 % High 11.5-15.0 [facility] Comment on above: Order Comment: Speci men Type: BLOOD SPECIMENOrdering Facility: [facility] Address: [address] [place] [address] Performed By: #### 5 7021-8 ####[facility] LABORATORYCLIA [id number] [address] [place] Hematocrit (Bld) [Volume fraction] 30.4 % Low 39.0-51.0 [facility] Comment on above: Order Comment: Speci men Type: BLOOD SPECIMENOrdering Facility: [facility] Address: [address] [place] [address] Performed By: #### 5 7021-8 ####[facility] LABORATORYCLIA [id number] [address] [place] Hemoglobin (Bld) [Mass/Vol] 9.2 g/dL Low 13.0-17.0 [facility] Comment on above: Order Comment: Speci men Type: BLOOD SPECIMENOrdering Facility: [facility] Address: [address] [place] [address] Performed By: #### 5 7021-8 ####[facility] LABORATORYCLIA [id number] [address] IMMATURE GRAN % 0.5 % Normal [facility] Comment on above: Order Comment: Speci men Type: BLOOD SPECIMENOrdering Facility: [facility] Address: [address] [place] [address] Performed By: #### 5 7021-8 ####[facility] LABORATORYCLIA [id number] [address] IMMATURE GRAN ABS 0.06 k/uL Normal <0.10 [facility] Comment on above: Order Comment: Speci men Type: BLOOD SPECIMENOrdering Facility: [facility] Address: [address] [place] [address] Performed By: #### 5 7021-8 ####[facility] LABORATORYCLIA [id number] [address] Lymphocytes (Bld) [#/Vol] 1.99 10*3/uL Normal 1.00-4.00 [facility] Comment on above: Order Comment: Speci men Type: BLOOD SPECIMENOrdering Facility: [facility] Address: [address] [place] [address] Performed By: #### 5 7021-8 ####[facility] LABORATORYCLIA [id number] [address] Lymphocytes/100 WBC (Bld) 17.6 % Normal [facility] Comment on above: Order Comment: Speci men Type: BLOOD SPECIMENOrdering Facility: [facility] Address: [address] [place] [address] Performed By: #### 5 7021-8 ####[facility] LABORATORYCLIA [id number] [address] MCH (RBC) [Entitic mass] 28.4 pg Normal 26.0-34.0 [facility] Comment on above: Order Comment: Speci men Type: BLOOD SPECIMENOrdering Facility: [facility] Address: [address] [place] [address] Performed By: #### 5 7021-8 ####[facility] LABORATORYCLIA [id number] [address] [place] MCHC (RBC) [Mass/Vol] 30.3 g/dL Low 30.5-36.0 [facility] Comment on above: Order Comment: Speci men Type: BLOOD SPECIMENOrdering Facility: [facility] Address: [address] [place] [address] Performed By: #### 5 7021-8 ####[facility] LABORATORYCLIA [id number] [address] STATES OF [facility] MCV (RBC) [Entitic vol] 93.8 fL Normal 80.0-100.0 [facility] Comment on above: Order Comment: Speci men Type: BLOOD SPECIMENOrdering Facility: [facility] Address: [address] [place] [address] Performed By: #### 5 7021-8 ####[facility] LABORATORYCLIA [id number] [address] [place] Monocytes (Bld) [#/Vol] 0.57 10*3/uL Normal <0.87 [facility] Comment on above: Order Comment: Speci men Type: BLOOD SPECIMENOrdering Facility: [facility] Address: [address] [place] [address] Performed By: #### 5 7021-8 ####[facility] LABORATORYCLIA [id number] [address] Monocytes/100 WBC (Bld) 5.0 % Normal [facility] Comment on above: Order Comment: Speci men Type: BLOOD SPECIMENOrdering Facility: [facility] Address: [address] [place] [address] Performed By: #### 5 7021-8 ####[facility] LABORATORYCLIA [id number] [address] [place] Neutrophils (Bld) [#/Vol] 8.12 10*3/uL High 1.45-7.50 [facility] Comment on above: Order Comment: Speci men Type: BLOOD SPECIMENOrdering Facility: [facility] Address: [address] [place] [address] Performed By: #### 5 7021-8 ####[facility] LABORATORYCLIA [id number] [address] Neutrophils/100 WBC (Bld) 72.0 % Normal [facility] Comment on above: Order Comment: Speci men Type: BLOOD SPECIMENOrdering Facility: [facility] Address: [address] [place] [address] Performed By: #### 5 7021-8 ####[facility] LABORATORYCLIA [id number] [address] [place] Nucleated RBC (Bld) [#/Vol] 10*3/uL Normal <0.01 [facility] Comment on above: Order Comment: Speci men Type: BLOOD SPECIMENOrdering Facility: [facility] Address: [address] [place] [address] Performed By: #### 5 7021-8 ####[facility] LABORATORYCLIA [id number] [address] Nucleated RBC/100 WBC (Bld) [Ratio] 0.0 /100 WBC Normal [facility] Comment on above: Order Comment: Speci men Type: BLOOD SPECIMENOrdering Facility: [facility] Address: [address] [place] [address] Performed By: #### 5 7021-8 ####[facility] LABORATORYCLIA [id number] [address] [place] Platelet mean volume (Bld) [Entitic vol] 10.9 fL Normal 9.0-12.7 [facility] Comment on above: Order Comment: Speci men Type: BLOOD SPECIMENOrdering Facility: [facility] Address: [address] [place] [address] Performed By: #### 5 7021-8 ####[facility] LABORATORYCLIA [id number] [address] OF [facility] Platelets (Bld) [#/Vol] 303 10*3/uL Normal 150-400 [facility] Comment on above: Order Comment: Speci men Type: BLOOD SPECIMENOrdering Facility: [facility] Address: [address] [place] [address] Performed By: #### 5 7021-8 ####[facility] LABORATORYCLIA [id number] [address] OF [facility] RBC (Bld) [#/Vol] 3.24 10*6/uL Low 4.20-6.00 [facility] Comment on above: Order Comment: Speci men Type: BLOOD SPECIMENOrdering Facility: [facility] Address: [address] [place] [address] Performed By: #### 5 7021-8 ####[facility] LABORATORYCLIA [id number] [address] WBC (Bld) [#/Vol] 11.30 10*3/uL High 3.70-11.00 [facility] Comment on above: Order Comment: Speci men Type: BLOOD SPECIMENOrdering Facility: [facility] Address: [address] [place] [address] Performed By: #### 5 7021-8 ####[facility] LABORATORYCLIA [id number] [address] [place] NURSING PROGon 07-31-2021 NURSING PROG Normal [facility] aPTT PPPon 07-31-2021 aPTT Coag (PPP) [Time] 64.9 s High 23.0-32.4 [facility] Comment on above: Order Comment: Speci men Type: BLOOD SPECIMENOrdering Facility: [facility] Address: [address] [place] [address] Performed By: #### 1 4979-9 ####[facility] LABORATORYCLIA [id number] [address] ALLIED HEALTHon 07-30-2021 ALLIED HEALTH Normal [facility] Bacteria CSF Culton 07-31-19 22 Bacteria identified Cx Nom (CSF) CULTURE, CSF: No growth 14 days GRAM STAIN: No organisms seen Few Mononuclear cells Rare Polymorphonuclear leukocytes Gram stain performed on cytospun specimen. Normal [facility] Comment on above: Performed By: #### 6 06-4 ####[facility] LABORATORYCLIA [id number] [place] [address] [place] Basic metabolic 2000 panelon 07-30-2021 Anion gap [Moles/Vol] 9 mmol/L Normal 9-18 [facility] Comment on above: Order Comment: Speci men Type: BLOOD SPECIMENOrdering Facility: [facility] Address: [address] [place] [address] Performed By: #### 2 777-1, 17021-2, ####[facility] LABORATORYCLIA [id number] [place] [address] [place] Calcium [Mass/Vol] 8.9 mg/dL Normal 8.5-10.2 [facility] Comment on above: Order Comment: Speci men Type: BLOOD SPECIMENOrdering Facility: [facility] Address: [address] [place] [address] Performed By: #### 2 777-1, 16686-1, ####[facility] LABORATORYCLIA [id number] [place] [address] [place] Chloride [Moles/Vol] 95 mmol/L Low 97-105 [facility] Comment on above: Order Comment: Speci men Type: BLOOD SPECIMENOrdering Facility: [facility] Address: [address] [place] [address] Performed By: #### 2 777-1, 11082-3, ####[facility] LABORATORYCLIA [id number] [place] [address] [place] CO2 [Moles/Vol] 28 mmol/L Normal 22-30 [facility] Comment on above: Order Comment: Speci men Type: BLOOD SPECIMENOrdering Facility: [facility] Address: [address] [place] [address] Performed By: #### 2 777-1, 32965-4, ####[facility] SERVICESCLIA [id number] [place] [id number] [place] Creatinine [Mass/Vol] 0.67 mg/dL Low 0.73-1.22 [facility] Comment on above: Order Comment: Speci men Type: BLOOD SPECIMENOrdering Facility: [facility] Address: [address] [place] [address] Performed By: #### 2 777-1, 79839-5, ####[facility]PITALIA [id number] [address] [place] ESTIMATED GLOMERULAR FILTRATION RATE 101 mL/min/1.73m??? Normal >=60 [facility] Comment on above: Order Comment: Speccara men Type: BLOOD SPECIMENOrdering Facility: [facility] Address: [address] [place] [address] Result Comment: Luzmaria mated Glomerular Filtration Rate [...] actual GFR. Performed By: #### 2 777-1, 49861-8, ####[facility] LABORATORYIA [id number] [place] [address] [place] Glucose [Mass/Vol] 125 mg/dL High 74-99 [facility] Comment on above: Order Comment: Shira feldman Type: BLOOD SPECIMENOrdering Facility: [facility] Address: [address] [place] [address] Result Comment: The [place] [employer] (ADA) provides guidance for cutoff [...] Standards of Medical Care in Diabetes 2016, [place] [employer]. Diabetes Care. 2016.39(Suppl 1). Performed By: #### 2 777-1, 06739-4, ####[facility] LABORATORYCLIA [id number] [place] [address] [place] Potassium [Moles/Vol] 3.9 mmol/L Normal 3.7-5.1 [facility] Comment on above: Order Comment: Shira feldman Type: BLOOD SPECIMENOrdering Facility: [facility] Address: [address] [place] [address] Performed By: #### 2 777-1, , ####[facility] LABORATORYCLIA [id number] [place] [address] [place] Sodium [Moles/Vol] 132 mmol/L Low 136-144 [facility] Comment on above: Order Comment: Shira feldman Type: BLOOD SPECIMENOrdering Facility: [facility] Address: [address] [place] [address] Performed By: #### 2 777-1, , ####[facility] LABORATORYCLIA [id number] [place] [address] [place] Urea nitrogen [Mass/Vol] 38 mg/dL High 9-24 [facility] Comment on above: Order Comment: Shira feldman Type: BLOOD SPECIMENOrdering Facility: [facility] Address: [address] [place] [address] Performed By: #### 2 777-1, , ####[facility] LABORATORYCLIA [id number] [address] OF [facility] CBC W Auto Differential pane l (Bld)on 07-30-2021 Basophils (Bld) [#/Vol] 0.04 10*3/uL Normal <0.11 [facility] Comment on above: Order Comment: Speci men Type: BLOOD SPECIMENOrdering Facility: [facility] Address: [address] [place] [address] Performed By: #### 5 7021-8 ####[facility] LABORATORYCLIA [id number] [address] Basophils/100 WBC (Bld) 0.4 % Normal [facility] Comment on above: Order Comment: Speci men Type: BLOOD SPECIMENOrdering Facility: [facility] Address: [address] [place] [address] Performed By: #### 5 7021-8 ####[facility] LABORATORYCLIA [id number] [address] Differential cell count method Nom (Bld) Auto Normal [facility] Comment on above: Order Comment: Speci men Type: BLOOD SPECIMENOrdering Facility: [facility] Address: [address] [place] [address] Performed By: #### 5 7021-8 ####[facility] LABORATORYCLIA [id number] [address] [place] Eosinophils (Bld) [#/Vol] 0.30 10*3/uL Normal <0.46 [facility] Comment on above: Order Comment: Speci men Type: BLOOD SPECIMENOrdering Facility: [facility] Address: [address] [place] [address] Performed By: #### 5 7021-8 ####[facility] LABORATORYCLIA [id number] [address] Eosinophils/100 WBC (Bld) 2.7 % Normal [facility] Comment on above: Order Comment: Speci men Type: BLOOD SPECIMENOrdering Facility: [facility] Address: [address] [place] [address] Performed By: #### 5 7021-8 ####[facility] LABORATORYCLIA [id number] [address] Erythrocyte distribution width (RBC) [Ratio] 17.2 % High 11.5-15.0 [facility] Comment on above: Order Comment: Speci men Type: BLOOD SPECIMENOrdering Facility: [facility] Address: [address] [place] [address] Performed By: #### 5 7021-8 ####[facility] LABORATORYCLIA [id number] [address] Hematocrit (Bld) [Volume fraction] 30.8 % Low 39.0-51.0 [facility] Comment on above: Order Comment: Speci men Type: BLOOD SPECIMENOrdering Facility: [facility] Address: [address] [place] [address] Performed By: #### 5 7021-8 ####[facility] LABORATORYCLIA [id number] [address] Hemoglobin (Bld) [Mass/Vol] 9.4 g/dL Low 13.0-17.0 [facility] Comment on above: Order Comment: Speci men Type: BLOOD SPECIMENOrdering Facility: [facility] Address: [address] [place] [address] Performed By: #### 5 7021-8 ####[facility] LABORATORYCLIA [id number] [address] [place] IMMATURE GRAN % 0.5 % Normal [facility] Comment on above: Order Comment: Speci men Type: BLOOD SPECIMENOrdering Facility: [facility] Address: [address] [place] [address] Performed By: #### 5 7021-8 ####[facility] LABORATORYCLIA [id number] [address] IMMATURE GRAN ABS 0.06 k/uL Normal <0.10 [facility] Comment on above: Order Comment: Speci men Type: BLOOD SPECIMENOrdering Facility: [facility] Address: [address] [place] [address] Performed By: #### 5 7021-8 ####[facility] LABORATORYCLIA [id number] [address] Lymphocytes (Bld) [#/Vol] 1.68 10*3/uL Normal 1.00-4.00 [facility] Comment on above: Order Comment: Speci men Type: BLOOD SPECIMENOrdering Facility: [facility] Address: [address] [place] [address] Performed By: #### 5 7021-8 ####[facility] LABORATORYCLIA [id number] [address] Lymphocytes/100 WBC (Bld) 15.3 % Normal [facility] Comment on above: Order Comment: Speci men Type: BLOOD SPECIMENOrdering Facility: [facility] Address: [address] [place] [address] Performed By: #### 5 7021-8 ####[facility] LABORATORYCLIA [id number] [address] STATES [facility] MCH (RBC) [Entitic mass] 28.0 pg Normal 26.0-34.0 [facility] Comment on above: Order Comment: Speci men Type: BLOOD SPECIMENOrdering Facility: [facility] Address: [address] [place] [address] Performed By: #### 5 7021-8 ####[facility] LABORATORYCLIA [id number] [address] STATES OF [facility] MCHC (RBC) [Mass/Vol] 30.5 g/dL Normal 30.5-36.0 [facility] Comment on above: Order Comment: Speci men Type: BLOOD SPECIMENOrdering Facility: [facility] Address: [address] [place] [address] Performed By: #### 5 7021-8 ####[facility] LABORATORYCLIA [id number] [place] [address] [place] MCV (RBC) [Entitic vol] 91.7 fL Normal 80.0-100.0 [facility] Comment on above: Order Comment: Speci men Type: BLOOD SPECIMENOrdering Facility: [facility] Address: [address] [place] [address] Performed By: #### 5 7021-8 ####[facility] LABORATORYCLIA [id number] [place] [address] [place] Monocytes (Bld) [#/Vol] 0.53 10*3/uL Normal <0.87 [facility] Comment on above: Order Comment: Speci men Type: BLOOD SPECIMENOrdering Facility: [facility] Address: [address] [place] [address] Performed By: #### 5 7021-8 ####[facility] LABORATORYCLIA [id number] [address] STATES [facility] Monocytes/100 WBC (Bld) 4.8 % Normal [facility] Comment on above: Order Comment: Speci men Type: BLOOD SPECIMENOrdering Facility: [facility] Address: [address] [place] [address] Performed By: #### 5 7021-8 ####[facility] LABORATORYCLIA [id number] [address] [place] Neutrophils (Bld) [#/Vol] 8.39 10*3/uL High 1.45-7.50 [facility] Comment on above: Order Comment: Speci men Type: BLOOD SPECIMENOrdering Facility: [facility] Address: [address] [place] [address] Performed By: #### 5 7021-8 ####[facility] LABORATORYCLIA [id number] [address] [place] Neutrophils/100 WBC (Bld) 76.3 % Normal [facility] Comment on above: Order Comment: Speci men Type: BLOOD SPECIMENOrdering Facility: [facility] Address: [address] [place] [address] Performed By: #### 5 7021-8 ####[facility] LABORATORYCLIA [id number] [place] [address] [place] Nucleated RBC (Bld) [#/Vol] 10*3/uL Normal <0.01 [facility] Comment on above: Order Comment: Speci men Type: BLOOD SPECIMENOrdering Facility: [facility] Address: [address] [place] [address] Performed By: #### 5 7021-8 ####[facility] LABORATORYCLIA [id number] [address] [place] Nucleated RBC/100 WBC (Bld) [Ratio] 0.0 /100 WBC Normal [facility] Comment on above: Order Comment: Speci men Type: BLOOD SPECIMENOrdering Facility: [facility] Address: [address] [place] [address] Performed By: #### 5 7021-8 ####[facility] LABORATORYCLIA [id number] [address] [place] Platelet mean volume (Bld) [Entitic vol] 10.9 fL Normal 9.0-12.7 [facility] Comment on above: Order Comment: Speci men Type: BLOOD SPECIMENOrdering Facility: [facility] Address: [address] [place] [address] Performed By: #### 5 7021-8 ####[facility] LABORATORYCLIA [id number] [address] [place] Platelets (Bld) [#/Vol] 287 10*3/uL Normal 150-400 [facility] Comment on above: Order Comment: Speci men Type: BLOOD SPECIMENOrdering Facility: [facility] Address: [address] [place] [address] Performed By: #### 5 7021-8 ####[facility] LABORATORYCLIA [id number] [place] [address] [place] RBC (Bld) [#/Vol] 3.36 10*6/uL Low 4.20-6.00 [facility] Comment on above: Order Comment: Speci men Type: BLOOD SPECIMENOrdering Facility: [facility] Address: [address] [place] [address] Performed By: #### 5 7021-8 ####[facility] LABORATORYCLIA [id number] [address] WBC (Bld) [#/Vol] 11.00 10*3/uL Normal 3.70-11.00 [facility] Comment on above: Order Comment: Speci men Type: BLOOD SPECIMENOrdering Facility: [facility] Address: [address] [place] [address] Performed By: #### 5 7021-8 ####[facility] LABORATORYCLIA [id number] [address] CSF MANUAL DIFFon 07-30-2021 DIF TTL, CSF 100 cells counted Normal [facility] Comment on above: Order Comment: Speci men Type: CEREBROSPINAL FLUIDOrdering Facility: [facility] Address: [address] [place] [address] Performed By: #### L [id number], TID9530, 60262-0 ####[facility] LABORATORYCLIA [id number] [address] [place] EOSIN%, CSF 0 % Normal [facility] Comment on above: Order Comment: Speci men Type: CEREBROSPINAL FLUIDOrdering Facility: [facility] Address: [address] [place] [address] Performed By: #### L [id number], AYL3920, 81048-5 ####[facility]ORATORYCLIA [id number] [address] [place] LYMPH%, CSF 75 % Normal 50-90 [facility] Comment on above: Order Comment: Speci men Type: CEREBROSPINAL FLUIDOrdering Facility: [facility] Address: [address] [place] [address] Performed By: #### L [id number], RDP1977, 76561-5 ####[facility]ORATORYCLIA [id number] [place] [address] [place] MACRO%, CSF 9 % High <1 [facility] Comment on above: Order Comment: Speci men Type: CEREBROSPINAL FLUIDOrdering Facility: [facility] Address: [address] [place] [address] Performed By: #### L [id number], JOX1626, 72310-8 ####[facility]ORATORYCLIA [id number] [place] [address] [place] MONO%, CSF 10 % Normal 10-50 [facility] Comment on above: Order Comment: Speci men Type: CEREBROSPINAL FLUIDOrdering Facility: [facility] Address: [address] [place] [address] Performed By: #### L [id number], FJX4860, 60549-4 ####[facility]ORATORYCLIA [id number] [address] [place] OTHER CL%, CSF 4 % Normal [facility] Comment on above: Order Comment: Speci men Type: CEREBROSPINAL FLUIDOrdering Facility: [facility] Address: [address] [place] [address] Result Comment: Path review to follow. Performed By: #### L [id number], OYN5968, 59011-8 ####[facility]ORATORYCLIA [id number] [address] [place] REAC LYMPH %, CSF 2 % Normal [facility] Comment on above: Order Comment: Speci men Type: CEREBROSPINAL FLUIDOrdering Facility: [facility] Address: [address] [place] [address] Performed By: #### L [id number], PAX3623, 64554-9 ####[facility] LABORATORYCLIA [id number] [address] CSF PATHOLOGIST INTERP (LAB REFLEX ORDER-NO BILL)on 07-30-2021 CSF STAFF REVIEW Negative Normal [facility] Comment on above: Order Comment: Speci men Type: CEREBROSPINAL FLUIDOrdering Facility: [facility] Address: [address] [place] [address] Performed By: #### L [id number], YQB1421, 22179-0 ####[facility]ORATORYCLIA [id number] [address] Pathologist name Reviewed by Eloise rebolledo MD [facility] Comment on above: Order Comment: Speci men Type: CEREBROSPINAL FLUIDOrdering Facility: [facility] Address: [address] [place] [address] Performed By: #### L [id number], GVX8941, 74042-1 ####[facility]ORATORYCLIA [id number] [address] [place] CT BRAIN WO IVCONon 07-31-19 CT BRAIN WO IVCON Normal [facility] Cell count panel (CSF)on Clarity (CSF) Clear Normal Clear [facility] Comment on above: Order Comment: Speci men Type: CEREBROSPINAL FLUIDOrdering Facility: [facility] Address: [address] [place] [address] Performed By: #### L [id number], KLW7926, 01889-6 ####[facility] LABORATORYCLIA [id number] [address] Clarity (Unsp spec) Clear Normal Clear [facility] Comment on above: Order Comment: Speci men Type: CEREBROSPINAL FLUIDOrdering Facility: [facility] Address: [address] [place] [address] Performed By: #### L [id number], RVX3895, 17180-9 ####[facility]ORATORYCLIA [id number] [address] Color (CSF) Colorless Normal Colorless [facility] Comment on above: Order Comment: Speci men Type: CEREBROSPINAL FLUIDOrdering Facility: [facility] Address: [address] [place] [address] Performed By: #### L [id number], CSN8584, 14164-3 ####[facility]ORATORYCLIA [id number] [address] Color (Spun CSF) Colorless Normal Colorless [facility] Comment on above: Order Comment: Speci men Type: CEREBROSPINAL FLUIDOrdering Facility: [facility] Address: [address] [place] [address] Performed By: #### L [id number], AIL6328, 48323-7 ####[facility] LABORATORYCLIA [id number] [address] CSF TUBE [employer] Normal [facility] Comment on above: Order Comment: Speci men Type: CEREBROSPINAL FLUIDOrdering Facility: [facility] Address: [address] [place] [address] Performed By: #### L [id number], IMK9881, 10952-7 ####[facility] LABORATORYCLIA [id number] [address] STATES OF [facility] RBC Manual cnt (CSF) [#/Vol] 9 cells/uL High 0-5 [facility] Comment on above: Order Comment: Speci men Type: CEREBROSPINAL FLUIDOrdering Facility: [facility] Address: [address] [place] [address] Performed By: #### L SY6812, QFR0100, 43151-4 ####[facility] LABORATORYCLIA [id number] [address] WBC Manual cnt (CSF) [#/Vol] 8 cells/uL High 0-5 [facility] Comment on above: Order Comment: Speci men Type: CEREBROSPINAL FLUIDOrdering Facility: [facility] Address: [address] [place], [place] [address] Performed By: #### L [id number], AXR8502, 72987-1 ####[facility] LABORATORYCLIA [id number] [address] [place] Glucose CSF-mCncon 2 Glucose (CSF) [Mass/Vol] 65 mg/dL Normal 40-70 [facility] Comment on above: Order Comment: Speci men Type: CEREBROSPINAL FLUIDOrdering Facility: [facility] Address: [address] [address] Result Comment: Lumb ar CSF glucose values of healthy patients are approximately 60% of the plasma values and must always be compared with a concurrently measured plasma value for adequate clinical interpretation.References: 1. Glucose HK (GLUC3) [package insert V 12.0 [place]]. [employer], [place], [place]. September 2015. 2. Michelle Moore, Loki HGarfield (2015). Chapter 7: Glucose and Lactate. F. Irina rose al.(eds.), Cerebrospinal Fluid in Clinical Neurology. [place]: [place] [address]. Performed By: #### 2 342-4, 2880-3 ####[facility] LABORATORYCLIA [id number] [address] Magnesium [facility] 07-30 Magnesium [Mass/Vol] 2.5 mg/dL High 1.7-2.3 [facility] Comment on above: Order Comment: Speci men Type: BLOOD SPECIMENOrdering Facility: [facility] Address: [address] [place] [address] Performed By: #### 2 777-1, 69848-7, 38497-0 ####[facility] LABORATORYCLIA [id number] [address] NURSING PROGon 07-30-2021 NURSING PROG Normal [facility] Phosphate SerPl-ncon 07-30 Phosphate [Mass/Vol] 2.4 mg/dL Low 2.7-4.8 [facility] Comment on above: Order Comment: Speci men Type: BLOOD SPECIMENOrdering Facility: [facility] Address: [address] [place] [address] Performed By: #### 2 777-1, 69926-3, 37526-2 ####[facility] LABORATORYCLIA [id number] [address] Prot CSF-mCncon 07-30-2021 Protein (CSF) [Mass/Vol] 50 mg/dL High 15-45 [facility] Comment on above: Order Comment: Speci men Type: CEREBROSPINAL FLUIDOrdering Facility: [facility] Address: [address] [place] [address] Performed By: #### 2 342-4, 2880-3 ####[facility] LABORATORYCLIA [id number] [address] aPTT PPPon 07-30-2021 aPTT Coag (PPP) [Time] 64.1 s High 23.0-32.4 [facility] Comment on above: Order Comment: Speci men Type: BLOOD SPECIMENOrdering Facility: [facility] Address: [address] [place] [address] Performed By: #### 1 4979-9 ####[facility] LABORATORYCLIA [id number] [address] [place] Bacteria CSF Culton 07-30-19 22 Bacteria identified Cx Nom (CSF) CULTURE, CSF: No growth 14 days GRAM STAIN: No cells or organisms seen Gram stain performed on cytospun specimen. Gram stain confirmed by microbiology Normal [facility] Comment on above: Performed By: #### 6 06-4 ####[facility] LABORATORYCLIA [id number] [address] CASE MANAGEMon 07-29-2021 CASE MANAGEM Normal [facility] CBC W Auto Differential pane l (Bld)on 07-29-2021 Basophils (Bld) [#/Vol] 0.03 10*3/uL Normal <0.11 [facility] Comment on above: Order Comment: Speci men Type: BLOOD SPECIMENOrdering Facility: [facility] Address: [address] [place] [address] Performed By: #### 5 7021-8 ####[facility] LABORATORYCLIA [id number] [address] Basophils/100 WBC (Bld) 0.3 % Normal [facility] Comment on above: Order Comment: Speci men Type: BLOOD SPECIMENOrdering Facility: [facility] Address: [address] [place] [address] Performed By: #### 5 7021-8 ####[facility]ORATORYCLIA [id number] [address] Differential cell count method Nom (Bld) Auto Normal [facility] Comment on above: Order Comment: Speci men Type: BLOOD SPECIMENOrdering Facility: [facility] Address: [address] [place] [address] Performed By: #### 5 7021-8 ####[facility] LABORATORYCLIA [id number] [address] Eosinophils (Bld) [#/Vol] 0.40 10*3/uL Normal <0.46 [facility] Comment on above: Order Comment: Speci men Type: BLOOD SPECIMENOrdering Facility: [facility] Address: [address] [place] [address] Performed By: #### 5 7021-8 ####[facility] LABORATORYCLIA [id number] [address] Eosinophils/100 WBC (Bld) 3.9 % Normal [facility] Comment on above: Order Comment: Speci men Type: BLOOD SPECIMENOrdering Facility: [facility] Address: [address] [place] [address] Performed By: #### 5 7021-8 ####[facility] LABORATORYCLIA [id number] [address] Erythrocyte distribution width (RBC) [Ratio] 17.1 % High 11.5-15.0 [facility] Comment on above: Order Comment: Speci men Type: BLOOD SPECIMENOrdering Facility: [facility] Address: [address] [place] [address] Performed By: #### 5 7021-8 ####[facility] LABORATORYCLIA [id number] [address] Hematocrit (Bld) [Volume fraction] 32.0 % Low 39.0-51.0 [facility] Comment on above: Order Comment: Speci men Type: BLOOD SPECIMENOrdering Facility: [facility] Address: [address] [place] [address] Performed By: #### 5 7021-8 ####[facility]ORATORYCLIA [id number] [address] Hemoglobin (Bld) [Mass/Vol] 9.7 g/dL Low 13.0-17.0 [facility] Comment on above: Order Comment: Speci men Type: BLOOD SPECIMENOrdering Facility: [facility] Address: [address] [place] [address] Performed By: #### 5 7021-8 ####[facility] LABORATORYCLIA [id number] [address] IMMATURE GRAN % 0.6 % Normal [facility] Comment on above: Order Comment: Speci men Type: BLOOD SPECIMENOrdering Facility: [facility] Address: [address] [place] [address] Performed By: #### 5 7021-8 ####[facility] LABORATORYCLIA [id number] [address] IMMATURE GRAN ABS 0.06 k/uL Normal <0.10 [facility] Comment on above: Order Comment: Speci men Type: BLOOD SPECIMENOrdering Facility: [facility] Address: [address] [place] [address] Performed By: #### 5 7021-8 ####[facility] LABORATORYCLIA [id number] [address] [place] Lymphocytes (Bld) [#/Vol] 1.96 10*3/uL Normal 1.00-4.00 [facility] Comment on above: Order Comment: Speci men Type: BLOOD SPECIMENOrdering Facility: [facility] Address: [address] [place] [address] Performed By: #### 5 7021-8 ####[facility]ORATORYCLIA [id number] [address] Lymphocytes/100 WBC (Bld) 19.0 % Normal [facility] Comment on above: Order Comment: Speci men Type: BLOOD SPECIMENOrdering Facility: [facility] Address: [address] [place] [address] Performed By: #### 5 7021-8 ####[facility] LABORATORYCLIA [id number] [address] MCH (RBC) [Entitic mass] 28.0 pg Normal 26.0-34.0 [facility] Comment on above: Order Comment: Speci men Type: BLOOD SPECIMENOrdering Facility: [facility] Address: [address] [place] [address] Performed By: #### 5 7021-8 ####[facility] LABORATORYCLIA [id number] [address] MCHC (RBC) [Mass/Vol] 30.3 g/dL Low 30.5-36.0 [facility] Comment on above: Order Comment: Speci men Type: BLOOD SPECIMENOrdering Facility: [facility] Address: [address] [place] [address] Performed By: #### 5 7021-8 ####[facility] LABORATORYCLIA [id number] [address] MCV (RBC) [Entitic vol] 92.5 fL Normal 80.0-100.0 [facility] Comment on above: Order Comment: Speci men Type: BLOOD SPECIMENOrdering Facility: [facility] Address: [address] [place] [address] Performed By: #### 5 7021-8 ####[facility] LABORATORYCLIA [id number] [address] Monocytes (Bld) [#/Vol] 0.53 10*3/uL Normal <0.87 [facility] Comment on above: Order Comment: Speci men Type: BLOOD SPECIMENOrdering Facility: [facility] Address: [address] [place] [address] Performed By: #### 5 7021-8 ####[facility] LABORATORYCLIA [id number] [place] [address] [place] Monocytes/100 WBC (Bld) 5.2 % Normal [facility] Comment on above: Order Comment: Speci men Type: BLOOD SPECIMENOrdering Facility: [facility] Address: [address] [place] [address] Performed By: #### 5 7021-8 ####[facility] LABORATORYCLIA [id number] [place] [address] [place] Neutrophils (Bld) [#/Vol] 7.31 10*3/uL Normal 1.45-7.50 [facility] Comment on above: Order Comment: Speci men Type: BLOOD SPECIMENOrdering Facility: [facility] Address: [address] [place] [address] Performed By: #### 5 7021-8 ####[facility] LABORATORYCLIA [id number] [address] [place] Neutrophils/100 WBC (Bld) 71.0 % Normal [facility] Comment on above: Order Comment: Speci men Type: BLOOD SPECIMENOrdering Facility: [facility] Address: [address] [place] [address] Performed By: #### 5 7021-8 ####[facility] LABORATORYCLIA [id number] [place] [address] [place] Nucleated RBC (Bld) [#/Vol] 10*3/uL Normal <0.01 [facility] Comment on above: Order Comment: Speci men Type: BLOOD SPECIMENOrdering Facility: [facility] Address: [address] [place] [address] Performed By: #### 5 7021-8 ####[facility] LABORATORYCLIA [id number] [place] [address] [place] Nucleated RBC/100 WBC (Bld) [Ratio] 0.0 /100 WBC Normal [facility] Comment on above: Order Comment: Speci men Type: BLOOD SPECIMENOrdering Facility: [facility] Address: [address] [place] [address] Performed By: #### 5 7021-8 ####[facility] LABORATORYCLIA [id number] [address] Platelet mean volume (Bld) [Entitic vol] 11.2 fL Normal 9.0-12.7 [facility] Comment on above: Order Comment: Speci men Type: BLOOD SPECIMENOrdering Facility: [facility] Address: [address] [place], [place] [address] Performed By: #### 5 7021-8 ####[facility] LABORATORYCLIA [id number] [address] [place] Platelets (Bld) [#/Vol] 276 10*3/uL Normal 150-400 [facility] Comment on above: Order Comment: Speci men Type: BLOOD SPECIMENOrdering Facility: [facility] Address: [address] [place] [address] Performed By: #### 5 7021-8 ####[facility] LABORATORYCLIA [id number] [address] OF [facility] RBC (Bld) [#/Vol] 3.46 10*6/uL Low 4.20-6.00 [facility] Comment on above: Order Comment: Speci men Type: BLOOD SPECIMENOrdering Facility: [facility] Address: [address] [place] [address] Performed By: #### 5 7021-8 ####[facility] LABORATORYCLIA [id number] [address] [place] WBC (Bld) [#/Vol] 10.29 10*3/uL Normal 3.70-11.00 [facility] Comment on above: Order Comment: Speci men Type: BLOOD SPECIMENOrdering Facility: [facility] Address: [address] [place], [place] [address] Performed By: #### 5 7021-8 ####[facility] LABORATORYCLIA [id number] [address] OF [facility] NURSING PROGon 07-29-2021 NURSING PROG Normal [facility] THERAPY NTon 07-29-2021 THERAPY NT Normal [facility] aPTT PPPon 07-29-2021 aPTT Coag (PPP) [Time] 59.2 s High 23.0-32.4 [facility] Comment on above: Order Comment: Speci men Type: BLOOD SPECIMENOrdering Facility: [facility] Address: [address] [place] [address] Performed By: #### 1 4979-9 ####[facility] LABORATORYCLIA [id number] [place] [address] [place] ALLIED HEALTHon 07-28-2021 ALLIED HEALTH Normal [facility] Basic metabolic 2000 panelon 07-28-2021 Anion gap [Moles/Vol] 7 mmol/L Low 9-18 [facility] Comment on above: Order Comment: Speci men Type: BLOOD SPECIMENOrdering Facility: [facility] Address: [address] [place] [address] Performed By: #### 1 4338-8, 17049-2, 2777-1, 99508-7 ####[facility] LABORATORYCLIA [id number] [place] [address] [place] Calcium [Mass/Vol] 9.0 mg/dL Normal 8.5-10.2 [facility] Comment on above: Order Comment: Speci men Type: BLOOD SPECIMENOrdering Facility: [facility] Address: [address] [place] [address] Performed By: #### 1 4338-8, 68848-3, 2777-1, 29362-8 ####[facility] LABORATORYCLIA [id number] [place] [address] [place] Chloride [Moles/Vol] 94 mmol/L Low 97-105 [facility] Comment on above: Order Comment: Speci men Type: BLOOD SPECIMENOrdering Facility: [facility] Address: [address] [place] [address] Performed By: #### 1 4338-8, 38499-8, 2777-1, 40987-3 ####[facility] SERVICESCLIA [id number] [place] [address] [place] CO2 [Moles/Vol] 31 mmol/L High 22-30 [facility] Comment on above: Order Comment: Speci men Type: BLOOD SPECIMENOrdering Facility: [facility] Address: [address] [place] [address] Performed By: #### 1 4338-8, 66892-8, 2776-05, 10933-9 ####[facility] SERVICESCLIA [id number] [place] [id number] [place] Creatinine [Mass/Vol] 0.75 mg/dL Normal 0.73-1.22 [facility] Comment on above: Order Comment: Speci men Type: BLOOD SPECIMENOrdering Facility: [facility] Address: [address] [place] [address] Performed By: #### 1 4338-8, 86900-5, 2776-05, 35269-0 ####[facility]PITALIA [id number] [address] [place] ESTIMATED GLOMERULAR FILTRATION RATE 98 mL/min/1.73m??? Normal >=60 [facility] Comment on above: Order Comment: Speci men Type: BLOOD SPECIMENOrdering Facility: [facility] Address: [address] [place] [address] Result Comment: Luzmaria mated Glomerular Filtration Rate [...] actual GFR. Performed By: #### 1 4338-8, 87963-6, 277-, 16288-8 ####[facility] LABORATORYCLIA [id number] [place] [address] [place] Glucose [Mass/Vol] 122 mg/dL High 74-99 [facility] Comment on above: Order Comment: Shira feldman Type: BLOOD SPECIMENOrdering Facility: [facility] Address: [address] [place], [place] [address] Result Comment: The [place] [employer] (ADA) provides guidance for cutoff [...] Standards of Medical Care in Diabetes 2016, [place] [employer]. Diabetes Care. 2016.39(Suppl 1). Performed By: #### 1 4338-8, 21826-9, 2777-1, 86520-8 ####[facility] LABORATORYCLIA [id number] [place] [address] [place] Potassium [Moles/Vol] 4.0 mmol/L Normal 3.7-5.1 [facility] Comment on above: Order Comment: Shira feldman Type: BLOOD SPECIMENOrdering Facility: [facility] Address: [address] [place] [address] Performed By: #### 1 4338-8, 86939-9, 2777-1, 38809-8 ####[facility] LABORATORYCLIA [id number] [place] [address] [place] Sodium [Moles/Vol] 132 mmol/L Low 136-144 [facility] Comment on above: Order Comment: Shira feldman Type: BLOOD SPECIMENOrdering Facility: [facility] Address: [address] [place], [place] [address] Performed By: #### 1 4338-8, 12818-1, 7-1, 95687-3 ####[facility] LABORATORYCLIA [id number] [place] [address] [place] Urea nitrogen [Mass/Vol] 34 mg/dL High 9-24 [facility] Comment on above: Order Comment: Speci men Type: BLOOD SPECIMENOrdering Facility: [facility] Address: [address] [place] [address] Performed By: #### 1 4338-8, 34720-4, 2777-1, 80493-7 ####[facility] LABORATORYCLIA [id number] [place] [address] [place] CBC W Auto Differential pane l (Bld)on 07-28-2021 Basophils (Bld) [#/Vol] 0.04 10*3/uL Normal <0.11 [facility] Comment on above: Order Comment: Speci men Type: BLOOD SPECIMENOrdering Facility: [facility] Address: [address] [place] [address] Performed By: #### 5 7021-8 ####[facility] LABORATORYCLIA [id number] [address] [place] Basophils/100 WBC (Bld) 0.5 % Normal [facility] Comment on above: Order Comment: Speci men Type: BLOOD SPECIMENOrdering Facility: [facility] Address: [address] [place] [address] Performed By: #### 5 7021-8 ####[facility] LABORATORYCLIA [id number] [address] [place] Differential cell count method Nom (Bld) Auto Normal [facility] Comment on above: Order Comment: Speci men Type: BLOOD SPECIMENOrdering Facility: [facility] Address: [address] [place] [address] Performed By: #### 5 7021-8 ####[facility] LABORATORYCLIA [id number] [place] [address] [place] Eosinophils (Bld) [#/Vol] 0.30 10*3/uL Normal <0.46 [facility] Comment on above: Order Comment: Speci men Type: BLOOD SPECIMENOrdering Facility: [facility] Address: [address] [place] [address] Performed By: #### 5 7021-8 ####[facility] LABORATORYCLIA [id number] [address] STATES [facility] Eosinophils/100 WBC (Bld) 3.4 % Normal [facility] Comment on above: Order Comment: Speci men Type: BLOOD SPECIMENOrdering Facility: [facility] Address: [address] [place] [address] Performed By: #### 5 7021-8 ####[facility] LABORATORYCLIA [id number] [address] [place] Erythrocyte distribution width (RBC) [Ratio] 16.9 % High 11.5-15.0 [facility] Comment on above: Order Comment: Speci men Type: BLOOD SPECIMENOrdering Facility: [facility] Address: [address] [place] [address] Performed By: #### 5 7021-8 ####[facility] LABORATORYCLIA [id number] [address] Hematocrit (Bld) [Volume fraction] 30.3 % Low 39.0-51.0 [facility] Comment on above: Order Comment: Speci men Type: BLOOD SPECIMENOrdering Facility: [facility] Address: [address] [place] [address] Performed By: #### 5 7021-8 ####[facility] LABORATORYCLIA [id number] [address] [place] Hemoglobin (Bld) [Mass/Vol] 9.2 g/dL Low 13.0-17.0 [facility] Comment on above: Order Comment: Speci men Type: BLOOD SPECIMENOrdering Facility: [facility] Address: [address] [place] [address] Performed By: #### 5 7021-8 ####[facility] LABORATORYCLIA [id number] [address] [place] IMMATURE GRAN % 0.6 % Normal [facility] Comment on above: Order Comment: Speci men Type: BLOOD SPECIMENOrdering Facility: [facility] Address: [address] [place] [address] Performed By: #### 5 7021-8 ####[facility] LABORATORYCLIA [id number] [address] IMMATURE GRAN ABS 0.05 k/uL Normal <0.10 [facility] Comment on above: Order Comment: Speci men Type: BLOOD SPECIMENOrdering Facility: [facility] Address: [address] [place] [address] Performed By: #### 5 7021-8 ####[facility] LABORATORYCLIA [id number] [address] Lymphocytes (Bld) [#/Vol] 1.68 10*3/uL Normal 1.00-4.00 [facility] Comment on above: Order Comment: Speci men Type: BLOOD SPECIMENOrdering Facility: [facility] Address: [address] [place] [address] Performed By: #### 5 7021-8 ####[facility] LABORATORYCLIA [id number] [address] Lymphocytes/100 WBC (Bld) 19.2 % Normal [facility] Comment on above: Order Comment: Speci men Type: BLOOD SPECIMENOrdering Facility: [facility] Address: [address] [place] [address] Performed By: #### 5 7021-8 ####[facility] LABORATORYCLIA [id number] [address] MCH (RBC) [Entitic mass] 28.4 pg Normal 26.0-34.0 [facility] Comment on above: Order Comment: Speci men Type: BLOOD SPECIMENOrdering Facility: [facility] Address: [address] [place] [address] Performed By: #### 5 7021-8 ####[facility] LABORATORYCLIA [id number] [address] MCHC (RBC) [Mass/Vol] 30.4 g/dL Low 30.5-36.0 [facility] Comment on above: Order Comment: Speci men Type: BLOOD SPECIMENOrdering Facility: [facility] Address: [address] [place] [address] Performed By: #### 5 7021-8 ####[facility] LABORATORYCLIA [id number] [address] [place] MCV (RBC) [Entitic vol] 93.5 fL Normal 80.0-100.0 [facility] Comment on above: Order Comment: Speci men Type: BLOOD SPECIMENOrdering Facility: [facility] Address: [address] [place] [address] Performed By: #### 5 7021-8 ####[facility] LABORATORYCLIA [id number] [address] [place] Monocytes (Bld) [#/Vol] 0.58 10*3/uL Normal <0.87 [facility] Comment on above: Order Comment: Speci men Type: BLOOD SPECIMENOrdering Facility: [facility] Address: [address] [place] [address] Performed By: #### 5 7021-8 ####[facility] LABORATORYCLIA [id number] [address] Monocytes/100 WBC (Bld) 6.6 % Normal [facility] Comment on above: Order Comment: Speci men Type: BLOOD SPECIMENOrdering Facility: [facility] Address: [address] [place] [address] Performed By: #### 5 7021-8 ####[facility] LABORATORYCLIA [id number] [address] [place] Neutrophils (Bld) [#/Vol] 6.11 10*3/uL Normal 1.45-7.50 [facility] Comment on above: Order Comment: Speci men Type: BLOOD SPECIMENOrdering Facility: [facility] Address: [address] [place] [address] Performed By: #### 5 7021-8 ####[facility] LABORATORYCLIA [id number] [address] [place] Neutrophils/100 WBC (Bld) 69.7 % Normal [facility] Comment on above: Order Comment: Speci men Type: BLOOD SPECIMENOrdering Facility: [facility] Address: [address] [place] [address] Performed By: #### 5 7021-8 ####[facility] LABORATORYCLIA [id number] [address] Nucleated RBC (Bld) [#/Vol] 10*3/uL Normal <0.01 [facility] Comment on above: Order Comment: Speci men Type: BLOOD SPECIMENOrdering Facility: [facility] Address: [address] [place] [address] Performed By: #### 5 7021-8 ####[facility] LABORATORYCLIA [id number] [address] Nucleated RBC/100 WBC (Bld) [Ratio] 0.0 /100 WBC Normal [facility] Comment on above: Order Comment: Speci men Type: BLOOD SPECIMENOrdering Facility: [facility] Address: [address] [place] [address] Performed By: #### 5 7021-8 ####[facility] LABORATORYCLIA [id number] [address] [place] Platelet mean volume (Bld) [Entitic vol] 11.3 fL Normal 9.0-12.7 [facility] Comment on above: Order Comment: Speci men Type: BLOOD SPECIMENOrdering Facility: [facility] Address: [address] [place] [address] Performed By: #### 5 7021-8 ####[facility] LABORATORYCLIA [id number] [address] [place] Platelets (Bld) [#/Vol] 238 10*3/uL Normal 150-400 [facility] Comment on above: Order Comment: Speci men Type: BLOOD SPECIMENOrdering Facility: [facility] Address: [address] [place] [address] Performed By: #### 5 7021-8 ####[facility] LABORATORYCLIA [id number] [address] RBC (Bld) [#/Vol] 3.24 10*6/uL Low 4.20-6.00 [facility] Comment on above: Order Comment: Speci men Type: BLOOD SPECIMENOrdering Facility: [facility] Address: [address] [place] [address] Performed By: #### 5 7021-8 ####[facility] LABORATORYCLIA [id number] [address] WBC (Bld) [#/Vol] 8.76 10*3/uL Normal 3.70-11.00 [facility] Comment on above: Order Comment: Speci men Type: BLOOD SPECIMENOrdering Facility: [facility] Address: [address] [place] [address] Performed By: #### 5 7021-8 ####[facility] LABORATORYCLIA [id number] [address] MRI BRAIN WO/W IVCONon 07-28 MRI BRAIN WO/W IVCON Normal [facility] Magnesium SerPl-mCncon 07-28 Magnesium [Mass/Vol] 2.5 mg/dL High 1.7-2.3 [facility] Comment on above: Order Comment: Speci men Type: BLOOD SPECIMENOrdering Facility: [facility] Address: [address] [place] [address] Performed By: #### 1 4338-8, 68209-4, 2777-1, 05709-2 ####[facility] LABORATORYCLIA [id number] [address] NURSING PROGon 07-28-2021 NURSING PROG Normal [facility] NURSING PROG Normal [facility] Phosphate SerPl-mCncon 07-28 Phosphate [Mass/Vol] 2.8 mg/dL Normal 2.7-4.8 [facility] Comment on above: Order Comment: Speci men Type: BLOOD SPECIMENOrdering Facility: [facility] Address: [address] [place] [address] Performed By: #### 1 4338-8, 15442-3, 2777-1, 00377-9 ####[facility] SERVICESCLIA [id number] [address] [place] Prealbumin [Mass/Vol]on 07-06 Prealbumin Nephelometry [Mass/Vol] 25 mg/dL Normal 17- [facility] Comment on above: Order Comment: Speci men Type: BLOOD SPECIMENOrdering Facility: [facility] Address: [address] [place] [address] Performed By: #### 1 4338-8, 13686-7, 2777-1, 78957-5 ####[facility] SERVICESCLIA [id number] [address] [place] aPTT PPPon 07-28-2021 aPTT Coag (PPP) [Time] 53.0 s High 23.0-32.4 [facility] Comment on above: Order Comment: Speci men Type: BLOOD SPECIMENOrdering Facility: [facility] Address: [address] [place] [address] Performed By: #### 1 4979-9 ####[facility] LABORATORYCLIA [id number] [place] [address] [place] aPTT Coag (PPP) [Time] 57.2 s High 23.0-32.4 [facility] Comment on above: Order Comment: Speci men Type: BLOOD SPECIMENOrdering Facility: [facility] Address: [address] [place] [address] Performed By: #### 1 4979-9 ####[facility] LABORATORYCLIA [id number] [place] [address] [place] Bacteria CSF Culton 07-28-19 22 Bacteria identified Cx Nom (CSF) CULTURE, CSF: No growth 14 days GRAM STAIN: No organisms seen Rare Polymorphonuclear leukocytes Rare Red Blood Cells Gram stain performed on cytospun specimen. Normal [facility] Comment on above: Performed By: #### 6 06-4 ####[facility] LABORATORYCLIA [id number] [address] [place] Bacteria Spec Resp Culton Bacteria identified Respiratory culture Nom (Unsp spec) CULTURE, RESPIRATORY: Rare Normal respiratory chris present GRAM STAIN: No organisms seen Rare Polymorphonuclear leukocytes Rare Epithelial cells Normal [facility] Comment on above: Performed By: #### 3 2355-0 ####[facility] LABORATORYCLIA [id number] [address] [place] CASE MANAGEMon 07-27-2021 CASE MANAGEM Normal [facility] CBC W Auto Differential pane l (Bld)on 07-27-2021 Basophils (Bld) [#/Vol] 0.04 10*3/uL Normal <0.11 [facility] Comment on above: Order Comment: Speci men Type: BLOOD SPECIMENOrdering Facility: [facility] Address: [address] [place] [address] Performed By: #### 5 7021-8 ####[facility] LABORATORYCLIA [id number] [address] [place] Basophils/100 WBC (Bld) 0.4 % Normal [facility] Comment on above: Order Comment: Speci men Type: BLOOD SPECIMENOrdering Facility: [facility] Address: [address] [place] [address] Performed By: #### 5 7021-8 ####[facility] LABORATORYCLIA [id number] [address] [place] Differential cell count method Nom (Bld) Auto Normal [facility] Comment on above: Order Comment: Speci men Type: BLOOD SPECIMENOrdering Facility: [facility] Address: [address] [place] [address] Performed By: #### 5 7021-8 ####[facility] LABORATORYCLIA [id number] [address] [place] Eosinophils (Bld) [#/Vol] 0.50 10*3/uL High <0.46 [facility] Comment on above: Order Comment: Speci men Type: BLOOD SPECIMENOrdering Facility: [facility] Address: [address] [place] [address] Performed By: #### 5 7021-8 ####[facility] LABORATORYCLIA [id number] [address] [place] Eosinophils/100 WBC (Bld) 5.2 % Normal [facility] Comment on above: Order Comment: Speci men Type: BLOOD SPECIMENOrdering Facility: [facility] Address: [address] [place] [address] Performed By: #### 5 7021-8 ####[facility] LABORATORYCLIA [id number] [address] STATES [facility] Erythrocyte distribution width (RBC) [Ratio] 16.8 % High 11.5-15.0 [facility] Comment on above: Order Comment: Speci men Type: BLOOD SPECIMENOrdering Facility: [facility] Address: [address] [place] [address] Performed By: #### 5 7021-8 ####[facility] LABORATORYCLIA [id number] [address] [place] Hematocrit (Bld) [Volume fraction] 29.8 % Low 39.0-51.0 [facility] Comment on above: Order Comment: Speci men Type: BLOOD SPECIMENOrdering Facility: [facility] Address: [address] [place] [address] Performed By: #### 5 7021-8 ####[facility] LABORATORYCLIA [id number] [address] [place] Hemoglobin (Bld) [Mass/Vol] 9.0 g/dL Low 13.0-17.0 [facility] Comment on above: Order Comment: Speci men Type: BLOOD SPECIMENOrdering Facility: [facility] Address: [address] [place] [place] [address] Performed By: #### 5 7021-8 ####[facility] LABORATORYCLIA [id number] [address] IMMATURE GRAN % 0.6 % Normal [facility] Comment on above: Order Comment: Speci men Type: BLOOD SPECIMENOrdering Facility: [facility] Address: [address] [place] [address] Performed By: #### 5 7021-8 ####[facility] LABORATORYCLIA [id number] [address] IMMATURE GRAN ABS 0.06 k/uL Normal <0.10 [facility] Comment on above: Order Comment: Speci men Type: BLOOD SPECIMENOrdering Facility: [facility] Address: [address] [place] [address] Performed By: #### 5 7021-8 ####[facility] LABORATORYCLIA [id number] [address] Lymphocytes (Bld) [#/Vol] 1.73 10*3/uL Normal 1.00-4.00 [facility] Comment on above: Order Comment: Speci men Type: BLOOD SPECIMENOrdering Facility: [facility] Address: [address] [place] [address] Performed By: #### 5 7021-8 ####[facility] LABORATORYCLIA [id number] [address] Lymphocytes/100 WBC (Bld) 17.9 % Normal [facility] Comment on above: Order Comment: Speci men Type: BLOOD SPECIMENOrdering Facility: [facility] Address: [address] [place] [address] Performed By: #### 5 7021-8 ####[facility] LABORATORYCLIA [id number] [address] MCH (RBC) [Entitic mass] 28.1 pg Normal 26.0-34.0 [facility] Comment on above: Order Comment: Speci men Type: BLOOD SPECIMENOrdering Facility: [facility] Address: [address] [place] [address] Performed By: #### 5 7021-8 ####[facility] LABORATORYCLIA [id number] [address] MCHC (RBC) [Mass/Vol] 30.2 g/dL Low 30.5-36.0 [facility] Comment on above: Order Comment: Speci men Type: BLOOD SPECIMENOrdering Facility: [facility] Address: [address] [place] [address] Performed By: #### 5 7021-8 ####[facility] LABORATORYCLIA [id number] [address] MCV (RBC) [Entitic vol] 93.1 fL Normal 80.0-100.0 [facility] Comment on above: Order Comment: Speci men Type: BLOOD SPECIMENOrdering Facility: [facility] Address: [address] [place] [address] Performed By: #### 5 7021-8 ####[facility] LABORATORYCLIA [id number] [address] Monocytes (Bld) [#/Vol] 0.59 10*3/uL Normal <0.87 [facility] Comment on above: Order Comment: Speci men Type: BLOOD SPECIMENOrdering Facility: [facility] Address: [address] [place] [address] Performed By: #### 5 7021-8 ####[facility] LABORATORYCLIA [id number] [address] Monocytes/100 WBC (Bld) 6.1 % Normal [facility] Comment on above: Order Comment: Speci men Type: BLOOD SPECIMENOrdering Facility: [facility] Address: [address] [place] [address] Performed By: #### 5 7021-8 ####[facility] LABORATORYCLIA [id number] [place] [address] [place] Neutrophils (Bld) [#/Vol] 6.75 10*3/uL Normal 1.45-7.50 [facility] Comment on above: Order Comment: Speci men Type: BLOOD SPECIMENOrdering Facility: [facility] Address: [address] [place] [address] Performed By: #### 5 7021-8 ####[facility] LABORATORYCLIA [id number] [place] [address] [place] Neutrophils/100 WBC (Bld) 69.8 % Normal [facility] Comment on above: Order Comment: Speci men Type: BLOOD SPECIMENOrdering Facility: [facility] Address: [address] [place] [address] Performed By: #### 5 7021-8 ####[facility] LABORATORYCLIA [id number] [address] [place] Nucleated RBC (Bld) [#/Vol] 10*3/uL Normal <0.01 [facility] Comment on above: Order Comment: Speci men Type: BLOOD SPECIMENOrdering Facility: [facility] Address: [address] [place] [address] Performed By: #### 5 7021-8 ####[facility] LABORATORYCLIA [id number] [address] [place] Nucleated RBC/100 WBC (Bld) [Ratio] 0.0 /100 WBC Normal [facility] Comment on above: Order Comment: Speci men Type: BLOOD SPECIMENOrdering Facility: [facility] Address: [address] [place] [address] Performed By: #### 5 7021-8 ####[facility] LABORATORYCLIA [id number] [place] [address] [place] Platelet mean volume (Bld) [Entitic vol] 11.3 fL Normal 9.0-12.7 [facility] Comment on above: Order Comment: Speci men Type: BLOOD SPECIMENOrdering Facility: [facility] Address: [address] [place] [address] Performed By: #### 5 7021-8 ####[facility] LABORATORYCLIA [id number] [address] [place] Platelets (Bld) [#/Vol] 227 10*3/uL Normal 150-400 [facility] Comment on above: Order Comment: Speci men Type: BLOOD SPECIMENOrdering Facility: [facility] Address: [address] [place] [address] Performed By: #### 5 7021-8 ####[facility] LABORATORYCLIA [id number] [place] [address] [place] RBC (Bld) [#/Vol] 3.20 10*6/uL Low 4.20-6.00 [facility] Comment on above: Order Comment: Speci men Type: BLOOD SPECIMENOrdering Facility: [facility] Address: [address] [place] [address] Performed By: #### 5 7021-8 ####[facility] LABORATORYCLIA [id number] [address] STATES OF [facility] WBC (Bld) [#/Vol] 9.67 10*3/uL Normal 3.70-11.00 [facility] Comment on above: Order Comment: Speci men Type: BLOOD SPECIMENOrdering Facility: [facility] Address: [address] [place] [address] Performed By: #### 5 7021-8 ####[facility] LABORATORYCLIA [id number] [address] [place] CONSULT PROGon 07-27-2021 CONSULT PROG Normal [facility] CSF MANUAL DIFFon 07-27-2021 DIF TTL, CSF 100 cells counted Normal [facility] Comment on above: Order Comment: Speci men Type: CEREBROSPINAL FLUIDOrdering Facility: [facility] Address: [address] [place] [address] Performed By: #### L [id number], 82610-1, [id number] ####[facility] LABORATORYCLIA [id number] [address] [place] LYMPH%, CSF 75 % Normal 50-90 [facility] Comment on above: Order Comment: Speci men Type: CEREBROSPINAL FLUIDOrdering Facility: [facility] Address: [facility] [place] [address] Performed By: #### L [id number], 84215-7, [id number] ####[facility]ORATORYCLIA [id number] [place] [address] [place] MONO%, CSF 22 % Normal 10-50 [facility] Comment on above: Order Comment: Speci men Type: CEREBROSPINAL FLUIDOrdering Facility: [facility] Address: [address] [place] [address] Performed By: #### L [id number], 27672-1, [id number] ####[facility]ORATORYCLIA [id number] [address] [place] NEUT%, CSF 2 % Normal 0-3 [facility] Comment on above: Order Comment: Speci men Type: CEREBROSPINAL FLUIDOrdering Facility: [facility] Address: [address] [place] [address] Performed By: #### L WS7563, 41275-4, [id number] ####[facility]ORATORYCLIA [id number] [address] [place] OTHER CL%, CSF 1 % Normal [facility] Comment on above: Order Comment: Speci men Type: CEREBROSPINAL FLUIDOrdering Facility: [facility] Address: [address] [place] [address] Result Comment: Path ologist review of microscopy results to follow Performed By: #### L [id number], 41310-5, [id number] ####[facility]ORATORYCLIA [id number] [address] CSF PATHOLOGIST INTERP (LAB REFLEX ORDER-NO BILL)on 07-27-2021 CSF STAFF REVIEW Negative Normal [facility] Comment on above: Order Comment: Speci men Type: CEREBROSPINAL FLUIDOrdering Facility: [facility] Address: [address] [place] [address] Performed By: #### L FH1602, 89550-0, [id number] ####[facility]ORATORYCLIA [id number] [address] Pathologist name Reviewed by Amador Stevens MD [facility] Comment on above: Order Comment: Speci men Type: CEREBROSPINAL FLUIDOrdering Facility: [facility] Address: [address] [place] [address] Performed By: #### L [id number], 27358-6, [id number] ####[facility]ORATORYCLIA [id number] [address] Cell count panel (CSF)on Clarity (CSF) Clear Normal Clear [facility] Comment on above: Order Comment: Speci men Type: CEREBROSPINAL FLUIDOrdering Facility: [facility] Address: [address] [place] [address] Performed By: #### L [id number], 00163-4, [id number] ####[facility]ORATORYCLIA [id number] [address] Clarity (Unsp spec) Not Indicated Normal Clear [facility] Comment on above: Order Comment: Speci men Type: CEREBROSPINAL FLUIDOrdering Facility: [facility] Address: [address] [place] [address] Performed By: #### L [id number], 24451-1, [id number] ####[facility]ORATORYCLIA [id number] [address] Color (CSF) Colorless Normal Colorless [facility] Comment on above: Order Comment: Speci men Type: CEREBROSPINAL FLUIDOrdering Facility: [facility] Address: [address] [place] [address] Performed By: #### L [id number], 30278-6, [id number] ####[facility]ORATORYCLIA [id number] [address] Color (Spun CSF) Not Indicated Normal Colorless [facility] Comment on above: Order Comment: Speci men Type: CEREBROSPINAL FLUIDOrdering Facility: [facility] Address: [address] [place] [address] Performed By: #### L QZ5721, 70944-5, [id number] ####[facility] LABORATORYCLIA [id number] [address] STATES OF [facility] CSF TUBE [employer] Normal [facility] Comment on above: Order Comment: Speci men Type: CEREBROSPINAL FLUIDOrdering Facility: [facility] Address: [address] [place] [address] Performed By: #### L DQ2998, 39388-6, [id number] ####[facility] LABORATORYCLIA [id number] [place] [address] [place] RBC Manual cnt (CSF) [#/Vol] 39 cells/uL High 0-5 [facility] Comment on above: Order Comment: Speci men Type: CEREBROSPINAL FLUIDOrdering Facility: [facility] Address: [address] [place] [address] Performed By: #### L [id number], 73861-8, [id number] ####[facility] LABORATORYCLIA [id number] [address] STATES [facility] WBC Manual cnt (CSF) [#/Vol] 14 cells/uL High 0-5 [facility] Comment on above: Order Comment: Speci men Type: CEREBROSPINAL FLUIDOrdering Facility: [facility] Address: [address] [place] [address] Performed By: #### L EO0353, 00238-1, [id number] ####[facility] LABORATORYCLIA [id number] [place] [address] [place] Glucose CSF-mCncon 2 Glucose (CSF) [Mass/Vol] 64 mg/dL Normal 40-70 [facility] Comment on above: Order Comment: Speci men Type: CEREBROSPINAL FLUIDOrdering Facility: [facility] Address: [address] [place] [address] Result Comment: Lumb ar CSF glucose values of healthy patients are approximately 60% of the plasma values and must always be compared with a concurrently measured plasma value for adequate clinical interpretation.References: 1. Glucose HK (GLUC3) [package insert V 12.0 [place]]. [employer], [place], [place]. September 2015. 2. Michelle Moore, Michelle Manjarrez (2015). Chapter 7: Glucose and Lactate. FGarfield Alcocer al.(eds.), Cerebrospinal Fluid in Clinical Neurology. [place]: [place] [address]. Performed By: #### 2 342-4, 2880-3 ####[facility] LABORATORYCLIA [id number] [place] [address] [place] NUTRITIONon 07-27-2021 NUTRITION Normal [facility] Prot CSF-mCncon 07-27-2021 Protein (CSF) [Mass/Vol] 58 mg/dL High 15-45 [facility] Comment on above: Order Comment: Speci men Type: CEREBROSPINAL FLUIDOrdering Facility: [facility] Address: [address] [place] [address] Performed By: #### 2 342-4, 2880-3 ####[facility] SERVICESCLIA [id number] [address] aPTT PPPon 07-27-2021 aPTT Coag (PPP) [Time] 68.4 s High 23.0-32.4 [facility] Comment on above: Order Comment: Speci men Type: BLOOD SPECIMENOrdering Facility: [facility] Address: [address] [place] [address] Performed By: #### 1 4979-9 ####[facility] SERVICESCLIA [id number] [address] aPTT Coag (PPP) [Time] 51.3 s High 23.0-32.4 [facility] Comment on above: Order Comment: Speci men Type: BLOOD SPECIMENOrdering Facility: [facility] Address: [address] [place] [address] Performed By: #### 1 4979-9 ####[facility] LABORATORYCLIA [id number] [address] ALLIED HEALTHon 07-26-2021 ALLIED HEALTH HNO ID: [id number] Author: Stephanie Maldonado, jacquard loom carpet weaver Service: Radiology Author Type: Pigment [employer] Lacquer Mixer Type: Allied Health Filed: 07/26/2021 4:10 PM Note Text: Spoke with nurse. Pt getting new EVD today. Try tomorrow. Normal [facility] Bacteria CSF Culton 07-27-19 Bacteria identified Cx Nom (CSF) Abnormal [facility] Comment on above: Performed By: #### 6 06-4 ####[facility] LABORATORYCLIA [id number] [address] OF [facility] Basic metabolic 2000 panelon 07-26-2021 Anion gap [Moles/Vol] 6 mmol/L Low 9-18 [facility] Comment on above: Order Comment: Speci men Type: BLOOD SPECIMENOrdering Facility: [facility] Address: [address] [place] [address] Performed By: #### 2 4321-2 ####[facility] LABORATORYCLIA [id number] [place] [address] [place] Calcium [Mass/Vol] 9.2 mg/dL Normal 8.5-10.2 [facility] Comment on above: Order Comment: Speci men Type: BLOOD SPECIMENOrdering Facility: [facility] Address: [address] [place] [address] Performed By: #### 2 4321-2 ####[facility] LABORATORYCLIA [id number] [place] [address] [place] Chloride [Moles/Vol] 99 mmol/L Normal 97-105 [facility] Comment on above: Order Comment: Speci men Type: BLOOD SPECIMENOrdering Facility: [facility] Address: [address] [place] [address] Performed By: #### 2 4321-2 ####[facility] LABORATORYCLIA [id number] [place] [address] [place] CO2 [Moles/Vol] 32 mmol/L High 22-30 [facility] Comment on above: Order Comment: Speccara feldman Type: BLOOD SPECIMENOrdering Facility: [facility] Address: [address] [place] [address] Performed By: #### 2 4321-2 ####[facility] LABORATORYCLIA [id number] [address] [place] Creatinine [Mass/Vol] 0.74 mg/dL Normal 0.73-1.22 [facility] Comment on above: Order Comment: Speci men Type: BLOOD SPECIMENOrdering Facility: [facility] Address: [address] [place] [address] Performed By: #### 2 4321-2 ####[facility]PITALIA [id number] [address] ESTIMATED GLOMERULAR FILTRATION RATE 98 mL/min/1.73m??? Normal >=60 [facility] Comment on above: Order Comment: Speccara men Type: BLOOD SPECIMENOrdering Facility: [facility] Address: [address] [place] [address] Result Comment: Luzmaria mated Glomerular Filtration Rate [...] actual GFR. Performed By: #### 2 4321-2 ####[facility] LABORATORYCLIA [id number] [address] [place] Glucose [Mass/Vol] 126 mg/dL High 74-99 [facility] Comment on above: Order Comment: Shira feldman Type: BLOOD SPECIMENOrdering Facility: [facility] Address: [address] [place] [address] Result Comment: The [place] Diabetes Association (ADA) provides guidance for cutoff [...] Standards of Medical Care in Diabetes 2016, [place] [employer]. Diabetes Care. 2016.39(Suppl 1). Performed By: #### 2 4321-2 ####[facility] LABORATORYCLIA [id number] [address] STATES [facility] Potassium [Moles/Vol] 4.2 mmol/L Normal 3.7-5.1 [facility] Comment on above: Order Comment: Shira feldman Type: BLOOD SPECIMENOrdering Facility: [facility] Address: [address] [place] [address] Performed By: #### 2 4321-2 ####[facility] LABORATORYCLIA [id number] [address] Sodium [Moles/Vol] 137 mmol/L Normal 136-144 [facility] Comment on above: Order Comment: Shira feldman Type: BLOOD SPECIMENOrdering Facility: [facility] Address: [address] [place] [address] Performed By: #### 2 4321-2 ####[facility] LABORATORYCLIA [id number] [address] Urea nitrogen [Mass/Vol] 36 mg/dL High 9-24 [facility] Comment on above: Order Comment: Johni francia Type: BLOOD SPECIMENOrdering Facility: [facility] Address: [address] [place] [address] Performed By: #### 2 4321-2 ####[facility] LABORATORYCLIA [id number] [address] [place] CBC W Auto Differential pane l (Bld)on 07-26-2021 Basophils (Bld) [#/Vol] 0.04 10*3/uL Normal <0.11 [facility] Comment on above: Order Comment: Speci men Type: BLOOD SPECIMENOrdering Facility: [facility] Address: [address] [place] [address] Performed By: #### 5 7021-8 ####[facility] LABORATORYCLIA [id number] [address] [place] Basophils/100 WBC (Bld) 0.4 % Normal [facility] Comment on above: Order Comment: Speci men Type: BLOOD SPECIMENOrdering Facility: [facility] Address: [address] [place] [address] Performed By: #### 5 7021-8 ####[facility] LABORATORYCLIA [id number] [address] Differential cell count method Nom (Bld) Auto Normal [facility] Comment on above: Order Comment: Speci men Type: BLOOD SPECIMENOrdering Facility: [facility] Address: [address] [place] [address] Performed By: #### 5 7021-8 ####[facility] LABORATORYCLIA [id number] [place] [address] [place] Eosinophils (Bld) [#/Vol] 0.63 10*3/uL High <0.46 [facility] Comment on above: Order Comment: Speci men Type: BLOOD SPECIMENOrdering Facility: [facility] Address: [address] [place] [address] Performed By: #### 5 7021-8 ####[facility] LABORATORYCLIA [id number] [address] [place] Eosinophils/100 WBC (Bld) 5.8 % Normal [facility] Comment on above: Order Comment: Speci men Type: BLOOD SPECIMENOrdering Facility: [facility] Address: [address] [place] [address] Performed By: #### 5 7021-8 ####[facility] LABORATORYCLIA [id number] [address] [place] Erythrocyte distribution width (RBC) [Ratio] 16.8 % High 11.5-15.0 [facility] Comment on above: Order Comment: Speci men Type: BLOOD SPECIMENOrdering Facility: [facility] Address: [address] [place] [address] Performed By: #### 5 7021-8 ####[facility] LABORATORYCLIA [id number] [address] Hematocrit (Bld) [Volume fraction] 31.2 % Low 39.0-51.0 [facility] Comment on above: Order Comment: Speci men Type: BLOOD SPECIMENOrdering Facility: [facility] Address: [address] [place] [address] Performed By: #### 5 7021-8 ####[facility] LABORATORYCLIA [id number] [address] OF [facility] Hemoglobin (Bld) [Mass/Vol] 9.1 g/dL Low 13.0-17.0 [facility] Comment on above: Order Comment: Speci men Type: BLOOD SPECIMENOrdering Facility: [facility] Address: [address] [place] [address] Performed By: #### 5 7021-8 ####[facility] LABORATORYCLIA [id number] [address] IMMATURE GRAN % 0.6 % Normal [facility] Comment on above: Order Comment: Speci men Type: BLOOD SPECIMENOrdering Facility: [facility] Address: [address] [place] [address] Performed By: #### 5 7021-8 ####[facility] LABORATORYCLIA [id number] [address] IMMATURE GRAN ABS 0.07 k/uL Normal <0.10 [facility] Comment on above: Order Comment: Speci men Type: BLOOD SPECIMENOrdering Facility: [facility] Address: [address] [place] [address] Performed By: #### 5 7021-8 ####[facility]ORATORYCLIA [id number] [address] STATES [place] [facility] Lymphocytes (Bld) [#/Vol] 2.16 10*3/uL Normal 1.00-4.00 [facility] Comment on above: Order Comment: Speci men Type: BLOOD SPECIMENOrdering Facility: [facility] Address: [address] [place] [address] Performed By: #### 5 7021-8 ####[facility] LABORATORYCLIA [id number] [address] Lymphocytes/100 WBC (Bld) 20.0 % Normal [facility] Comment on above: Order Comment: Speci men Type: BLOOD SPECIMENOrdering Facility: [facility] Address: [address] [place] [address] Performed By: #### 5 7021-8 ####[facility] LABORATORYCLIA [id number] [address] STATES [facility] MCH (RBC) [Entitic mass] 27.7 pg Normal 26.0-34.0 [facility] Comment on above: Order Comment: Speci men Type: BLOOD SPECIMENOrdering Facility: [facility] Address: [address] [place] [address] Performed By: #### 5 7021-8 ####[facility] LABORATORYCLIA [id number] [address] [place] MCHC (RBC) [Mass/Vol] 29.2 g/dL Low 30.5-36.0 [facility] Comment on above: Order Comment: Speci men Type: BLOOD SPECIMENOrdering Facility: [facility] Address: [address] [place] [address] Performed By: #### 5 7021-8 ####[facility] LABORATORYCLIA [id number] [address] MCV (RBC) [Entitic vol] 95.1 fL Normal 80.0-100.0 [facility] Comment on above: Order Comment: Speci men Type: BLOOD SPECIMENOrdering Facility: [facility] Address: [address] [place] [address] Performed By: #### 5 7021-8 ####[facility]ORATORYCLIA [id number] [place] [address] [place] Monocytes (Bld) [#/Vol] 0.63 10*3/uL Normal <0.87 [facility] Comment on above: Order Comment: Speci men Type: BLOOD SPECIMENOrdering Facility: [facility] Address: [address] [place] [address] Performed By: #### 5 7021-8 ####[facility]ATORYCLIA [id number] [address] [place] Monocytes/100 WBC (Bld) 5.8 % Normal [facility] Comment on above: Order Comment: Speci men Type: BLOOD SPECIMENOrdering Facility: [facility] Address: [address] [place] [address] Performed By: #### 5 7021-8 ####[facility] LABORATORYCLIA [id number] [place] [address] [place] Neutrophils (Bld) [#/Vol] 7.25 10*3/uL Normal 1.45-7.50 [facility] Comment on above: Order Comment: Speci men Type: BLOOD SPECIMENOrdering Facility: [facility] Address: [address] [place] [address] Performed By: #### 5 7021-8 ####[facility]ORATORYCLIA [id number] [address] [place] Neutrophils/100 WBC (Bld) 67.4 % Normal [facility] Comment on above: Order Comment: Speci men Type: BLOOD SPECIMENOrdering Facility: [facility] Address: [address] [place] [address] Performed By: #### 5 7021-8 ####[facility]ORATORYCLIA [id number] [place] [address] [place] Nucleated RBC (Bld) [#/Vol] 10*3/uL Normal <0.01 [facility] Comment on above: Order Comment: Speci men Type: BLOOD SPECIMENOrdering Facility: [facility] Address: [address] [place], [place] [address] Performed By: #### 5 7021-8 ####[facility] LABORATORYCLIA [id number] [address] Nucleated RBC/100 WBC (Bld) [Ratio] 0.0 /100 WBC Normal [facility] Comment on above: Order Comment: Speci men Type: BLOOD SPECIMENOrdering Facility: [facility] Address: [address] [place], [place] [address] Performed By: #### 5 7021-8 ####[facility] LABORATORYCLIA [id number] [address] [place] Platelet mean volume (Bld) [Entitic vol] 11.2 fL Normal 9.0-12.7 [facility] Comment on above: Order Comment: Speci men Type: BLOOD SPECIMENOrdering Facility: [facility] Address: [address] [place], [place] [address] Performed By: #### 5 7021-8 ####[facility] LABORATORYCLIA [id number] [address] [place] Platelets (Bld) [#/Vol] 245 10*3/uL Normal 150-400 [facility] Comment on above: Order Comment: Speci men Type: BLOOD SPECIMENOrdering Facility: [facility] Address: [address] [place], [place] [address] Performed By: #### 5 7021-8 ####[facility] LABORATORYCLIA [id number] [address] [place] RBC (Bld) [#/Vol] 3.28 10*6/uL Low 4.20-6.00 [facility] Comment on above: Order Comment: Speci men Type: BLOOD SPECIMENOrdering Facility: [facility] Address: [address] [place], [place] [address] Performed By: #### 5 7021-8 ####[facility] LABORATORYCLIA [id number] [place] [address] [place] WBC (Bld) [#/Vol] 10.78 10*3/uL Normal 3.70-11.00 [facility] Comment on above: Order Comment: Speci men Type: BLOOD SPECIMENOrdering Facility: [facility] Address: [address] [place] [address] Performed By: #### 5 7021-8 ####[facility] LABORATORYCLIA [id number] [address] CSF MANUAL DIFFon 07-26-2021 DIF TTL, CSF 100 cells counted Normal [facility] Comment on above: Order Comment: Speci men Type: CEREBROSPINAL FLUIDOrdering Facility: [facility] Address: [address] [place] [address] Performed By: #### 3 4563-7, [id number], [id number] ####[facility] LABORATORYCLIA [id number] [address] [place] LYMPH%, CSF 26 % Low 50-90 [facility] Comment on above: Order Comment: Speci men Type: CEREBROSPINAL FLUIDOrdering Facility: [facility] Address: [address] [place] [address] Performed By: #### 3 4563-7, [id number], [id number] ####[facility] LABORATORYCLIA [id number] [address] [place] MACRO%, CSF 10 % High <1 [facility] Comment on above: Order Comment: Speci men Type: CEREBROSPINAL FLUIDOrdering Facility: [facility] Address: [address] [place] [address] Performed By: #### 3 4563-7, [id number], [id number] ####[facility]ORATORYCLIA [id number] [address] [place] MONO%, CSF 20 % Normal 10-50 [facility] Comment on above: Order Comment: Speci men Type: CEREBROSPINAL FLUIDOrdering Facility: [facility] Address: [address] [place] [address] Performed By: #### 3 4563-7, [id number], [id number] ####[facility] LABORATORYCLIA [id number] [place] [address] [place] NEUT%, CSF 40 % High 0-3 [facility] Comment on above: Order Comment: Speci men Type: CEREBROSPINAL FLUIDOrdering Facility: [facility] Address: [address] [place] [address] Performed By: #### 3 4563-7, [id number], [id number] ####[facility] LABORATORYCLIA [id number] [address] OF [facility] OTHER CL%, CSF 2 % Normal [facility] Comment on above: Order Comment: Speci men Type: CEREBROSPINAL FLUIDOrdering Facility: [facility] Address: [address] [place] [address] Result Comment: Path review to follow. Performed By: #### 3 4563-7, [id number], [id number] ####[facility] LABORATORYCLIA [id number] [address] [place] REAC LYMPH %, CSF 2 % Normal [facility] Comment on above: Order Comment: Speci men Type: CEREBROSPINAL FLUIDOrdering Facility: [facility] Address: [address] [place] [address] Performed By: #### 3 4563-7, [id number], [id number] ####[facility] LABORATORYCLIA [id number] [address] CSF PATHOLOGIST INTERP (LAB REFLEX ORDER-NO BILL)on 07-26-2021 CSF STAFF REVIEW Negative for maligna nt cells. Rare bacteria present, cocci in pairs and chains. Correlation with CSF cultures is recommended. Normal [facility] Comment on above: Order Comment: Speci men Type: CEREBROSPINAL FLUIDOrdering Facility: [facility] Address: [address] [place] [address] Performed By: #### 3 4563-7, [id number], [id number] ####[facility]ORATORYCLIA [id number] [address] Pathologist name Reviewed by Amador Stevens MD Normal [facility] Comment on above: Order Comment: Speci men Type: CEREBROSPINAL FLUIDOrdering Facility: [facility] Address: [address] [place] [address] Performed By: #### 3 4563-7, [id number], [id number] ####[facility]ORATORYCLIA [id number] [address] [place] Cell count panel (CSF)on Clarity (CSF) Slightly Cloudy Abnormal Clear [facility] Comment on above: Order Comment: Speci men Type: CEREBROSPINAL FLUIDOrdering Facility: [facility] Address: [address] [place] [address] Performed By: #### 3 4563-7, [id number], [id number] ####[facility] LABORATORYCLIA [id number] [address] [place] Clarity (Unsp spec) Clear Normal Clear [facility] Comment on above: Order Comment: Speci men Type: CEREBROSPINAL FLUIDOrdering Facility: [facility] Address: [address] [place] [address] Performed By: #### 3 4563-7, [id number], [id number] ####[facility] LABORATORYCLIA [id number] [address] [place] Color (CSF) Colorless Normal Colorless [facility] Comment on above: Order Comment: Speci men Type: CEREBROSPINAL FLUIDOrdering Facility: [facility] Address: [address] [place] [address] Performed By: #### 3 4563-7, [id number], [id number] ####[facility]ORATORYCLIA [id number] [address] [place] Color (Spun CSF) Not Indicated Normal Colorless [facility] Comment on above: Order Comment: Speci men Type: CEREBROSPINAL FLUIDOrdering Facility: [facility] Address: [address] [place] [address] Performed By: #### 3 4563-7, [id number], [id number] ####[facility] LABORATORYCLIA [id number] [address] CSF TUBE [employer]BER [employer] Normal [facility] Comment on above: Order Comment: Speci men Type: CEREBROSPINAL FLUIDOrdering Facility: [facility] Address: [address] [place] [address] Performed By: #### 3 4563-7, [id number], [id number] ####[facility] LABORATORYCLIA [id number] [address] [place] RBC Manual cnt (CSF) [#/Vol] 1 cells/uL Normal 0-5 [facility] Comment on above: Order Comment: Johni francia Type: CEREBROSPINAL FLUIDOrdering Facility: [facility] Address: [address] [place] [address] Performed By: #### 3 4563-7, [id number], [id number] ####[facility] LABORATORYCLIA [id number] [address] STATES [facility] WBC Manual cnt (CSF) [#/Vol] 50 cells/uL High 0-5 [facility] Comment on above: Order Comment: Johni men Type: CEREBROSPINAL FLUIDOrdering Facility: [facility] Address: [address] [place] [address] Performed By: #### 3 4563-7, [id number], [id number] ####[facility] LABORATORYCLIA [id number] [address] [place] Glucose CSF-mCncon 2 Glucose (CSF) [Mass/Vol] 64 mg/dL Normal 40-70 [facility] Comment on above: Order Comment: Johni men Type: CEREBROSPINAL FLUIDOrdering Facility: [facility] Address: [address] [place] [address] Result Comment: Lumb ar CSF glucose values of healthy patients are approximately 60% of the plasma values and must always be compared with a concurrently measured plasma value for adequate clinical interpretation.References: 1. Glucose HK (GLUC3) [package insert V 12.0 [place]]. [employer], [place], [place]. September 2015. 2. Michelle Moore, Loki, H. (2015). Chapter 7: Glucose and Lactate. Marianela Alcocer al.(eds.), Cerebrospinal Fluid in Clinical Neurology. [place]: [place] [address]. Performed By: #### 2 880-3, 2341-4 ####[facility] LABORATORYCLIA [id number] [address] Magnesium [facility] Magnesium [Mass/Vol] 2.3 mg/dL Normal 1.7-2.3 [facility] Comment on above: Order Comment: Speci men Type: BLOOD SPECIMENOrdering Facility: [facility] Address: [address] [place] [address] Performed By: #### 1 9123-9, 2777-1, 3015-3 ####[facility] SERVICESCLIA [id number] [address] NURSING PROGon 07-26-2021 NURSING PROG Normal [facility] Phosphate SerPl-ncon 07-26 Phosphate [Mass/Vol] 2.6 mg/dL Low 2.7-4.8 [facility] Comment on above: Order Comment: Speci men Type: BLOOD SPECIMENOrdering Facility: [facility] Address: [address] [place] [address] Performed By: #### 1 9123-9, 2777-1, 6-3 ####[facility] LABORATORYCLIA [id number] [address] Prot CSF-mCncon 07-26-2021 Protein (CSF) [Mass/Vol] 64 mg/dL High 15-45 [facility] Comment on above: Order Comment: Speci men Type: CEREBROSPINAL FLUIDOrdering Facility: [facility] Address: [address] [place] [address] Performed By: #### 2 880-3, 2341-4 ####[facility] LABORATORYCLIA [id number] [address] [place] THERAPY NTon 07-26-2021 THERAPY NT Normal [facility] TSH SerPl-aCncon 07-26-2021 TSH Qn 1.470 m[IU]/L Normal 0.270-4.200 [facility] Comment on above: Order Comment: Speci men Type: BLOOD SPECIMENOrdering Facility: [facility] Address: [address] [place] [address] Performed By: #### 1 9123-9, 2777-1, 3016-3 ####[facility] LABORATORYCLIA [id number] [address] [facility] VITAMIN B12 BLOODon 07-27-19 Cobalamin (Vitamin B12) [Mass/Vol] 934 pg/mL Normal 232-1,245 [facility] Comment on above: Order Comment: Speci men Type: BLOOD SPECIMENOrdering Facility: [facility] Address: [address] [place] [address] Performed By: #### B 12 ####[facility] SERVICESCLIA [id number] [address] [facility] aPTT PPPon 07-26-2021 aPTT Coag (PPP) [Time] 53.6 s High 23.0-32.4 [facility] Comment on above: Order Comment: Speci men Type: BLOOD SPECIMENOrdering Facility: [facility] Address: [address] [place] [address] Performed By: #### 1 4979-9 ####[facility] LABORATORYCLIA [id number] [address] aPTT Coag (PPP) [Time] 44.9 s High 23.0-32.4 [facility] Comment on above: Order Comment: Speci men Type: BLOOD SPECIMENOrdering Facility: [facility] Address: [address] [place] [address] Performed By: #### 1 4979-9 ####[facility] LABORATORYCLIA [id number] [address] ALLIED HEALTHon 07-25-2021 ALLIED HEALTH HNO ID: [id number] Author: Shannon Bess RT(R) Service: Radiology Author Type: Technologist Type: Allied Health Filed: 07/25/2021 1:37 PM Note Text: Called floor for MRI screening form [id number] Normal [facility] Bacteria Bld Culton 07-26-19 22 Bacteria identified Cx Nom (Bld) CULTURE, BLOOD: No growth 5 days Normal [facility] Comment on above: Performed By: #### 6 00-7 ####[facility] LABORATORYCLIA [id number] [address] Bacteria identified Cx Nom (Bld) CULTURE, BLOOD: No growth 5 days Normal [facility] Comment on above: Performed By: #### 6 00-7 ####[facility] LABORATORYCLIA [id number] [address] CASE MANAGEMon 07-25-2021 CASE MANAGEM Normal [facility] CBC W Auto Differential pane l (Bld)on 07-25-2021 Basophils (Bld) [#/Vol] 0.06 10*3/uL Normal <0.11 [facility] Comment on above: Order Comment: Speci men Type: BLOOD SPECIMENOrdering Facility: [facility] Address: [address] [place] [address] Performed By: #### 5 7021-8 ####[facility] LABORATORYCLIA [id number] [address] Basophils/100 WBC (Bld) 0.6 % Normal [facility] Comment on above: Order Comment: Speci men Type: BLOOD SPECIMENOrdering Facility: [facility] Address: [facility] [place] [address] Performed By: #### 5 7021-8 ####[facility] LABORATORYCLIA [id number] [address] Differential cell count method Nom (Bld) Auto Normal [facility] Comment on above: Order Comment: Speci men Type: BLOOD SPECIMENOrdering Facility: [facility] Address: [address] [place] [address] Performed By: #### 5 7021-8 ####[facility]ORATORYCLIA [id number] [address] [place] Eosinophils (Bld) [#/Vol] 0.26 10*3/uL Normal <0.46 [facility] Comment on above: Order Comment: Speci men Type: BLOOD SPECIMENOrdering Facility: [facility] Address: [address] [place] [address] Performed By: #### 5 7021-8 ####[facility] LABORATORYCLIA [id number] [address] [place] Eosinophils/100 WBC (Bld) 2.5 % Normal [facility] Comment on above: Order Comment: Speci men Type: BLOOD SPECIMENOrdering Facility: [facility] Address: [address] [place] [address] Performed By: #### 5 7021-8 ####[facility] LABORATORYCLIA [id number] [address] [place] Erythrocyte distribution width (RBC) [Ratio] 16.9 % High 11.5-15.0 [facility] Comment on above: Order Comment: Speci men Type: BLOOD SPECIMENOrdering Facility: [facility] Address: [address] [place] [address] Performed By: #### 5 7021-8 ####[facility]ORATORYCLIA [id number] [address] [place] Hematocrit (Bld) [Volume fraction] 29.6 % Low 39.0-51.0 [facility] Comment on above: Order Comment: Speci men Type: BLOOD SPECIMENOrdering Facility: [facility] Address: [address] [place] [address] Performed By: #### 5 7021-8 ####[facility]ORATORYCLIA [id number] [address] [facility] Hemoglobin (Bld) [Mass/Vol] 8.8 g/dL Low 13.0-17.0 [facility] Comment on above: Order Comment: Speci men Type: BLOOD SPECIMENOrdering Facility: [facility] Address: [address] [place] [address] Performed By: #### 5 7021-8 ####[facility] LABORATORYCLIA [id number] [address] IMMATURE GRAN % 0.6 % Normal [facility] Comment on above: Order Comment: Speci men Type: BLOOD SPECIMENOrdering Facility: [facility] Address: [address] [place] [address] Performed By: #### 5 7021-8 ####[facility] LABORATORYCLIA [id number] [address] IMMATURE GRAN ABS 0.06 k/uL Normal <0.10 [facility] Comment on above: Order Comment: Speci men Type: BLOOD SPECIMENOrdering Facility: [facility] Address: [address] [place] [address] Performed By: #### 5 7021-8 ####[facility] LABORATORYCLIA [id number] [address] [place] Lymphocytes (Bld) [#/Vol] 2.15 10*3/uL Normal 1.00-4.00 [facility] Comment on above: Order Comment: Speci men Type: BLOOD SPECIMENOrdering Facility: [facility] Address: [address] [place] [address] Performed By: #### 5 7021-8 ####[facility] LABORATORYCLIA [id number] [address] Lymphocytes/100 WBC (Bld) 20.7 % Normal [facility] Comment on above: Order Comment: Speci men Type: BLOOD SPECIMENOrdering Facility: [facility] Address: [address] [place] [address] Performed By: #### 5 7021-8 ####[facility] LABORATORYCLIA [id number] [address] MCH (RBC) [Entitic mass] 28.2 pg Normal 26.0-34.0 [facility] Comment on above: Order Comment: Speci men Type: BLOOD SPECIMENOrdering Facility: [facility] Address: [address] [place] [address] Performed By: #### 5 7021-8 ####[facility] LABORATORYCLIA [id number] [address] MCHC (RBC) [Mass/Vol] 29.7 g/dL Low 30.5-36.0 [facility] Comment on above: Order Comment: Speci men Type: BLOOD SPECIMENOrdering Facility: [facility] Address: [address] [place] [address] Performed By: #### 5 7021-8 ####[facility] LABORATORYCLIA [id number] [address] MCV (RBC) [Entitic vol] 94.9 fL Normal 80.0-100.0 [facility] Comment on above: Order Comment: Speci men Type: BLOOD SPECIMENOrdering Facility: [facility] Address: [address] [place] [address] Performed By: #### 5 7021-8 ####[facility] LABORATORYCLIA [id number] [address] Monocytes (Bld) [#/Vol] 0.62 10*3/uL Normal <0.87 [facility] Comment on above: Order Comment: Speci men Type: BLOOD SPECIMENOrdering Facility: [facility] Address: [address] [place] [address] Performed By: #### 5 7021-8 ####[facility] LABORATORYCLIA [id number] [address] Monocytes/100 WBC (Bld) 6.0 % Normal [facility] Comment on above: Order Comment: Speci men Type: BLOOD SPECIMENOrdering Facility: [facility] Address: [address] [place] [address] Performed By: #### 5 7021-8 ####[facility] LABORATORYCLIA [id number] [address] [place] Neutrophils (Bld) [#/Vol] 7.25 10*3/uL Normal 1.45-7.50 [facility] Comment on above: Order Comment: Speci men Type: BLOOD SPECIMENOrdering Facility: [facility] Address: [address] [place] [address] Performed By: #### 5 7021-8 ####[facility] LABORATORYCLIA [id number] [address] Neutrophils/100 WBC (Bld) 69.6 % Normal [facility] Comment on above: Order Comment: Speci men Type: BLOOD SPECIMENOrdering Facility: [facility] Address: [address] [place] [address] Performed By: #### 5 7021-8 ####[facility] LABORATORYCLIA [id number] [address] [place] Nucleated RBC (Bld) [#/Vol] 10*3/uL Normal <0.01 [facility] Comment on above: Order Comment: Speci men Type: BLOOD SPECIMENOrdering Facility: [facility] Address: [address] [place] [address] Performed By: #### 5 7021-8 ####[facility] LABORATORYCLIA [id number] [address] STATES [facility] Nucleated RBC/100 WBC (Bld) [Ratio] 0.0 /100 WBC Normal [facility] Comment on above: Order Comment: Speci men Type: BLOOD SPECIMENOrdering Facility: [facility] Address: [address] [place] [address] Performed By: #### 5 7021-8 ####[facility] LABORATORYCLIA [id number] [place] [address] [place] Platelet mean volume (Bld) [Entitic vol] 11.3 fL Normal 9.0-12.7 [facility] Comment on above: Order Comment: Speci men Type: BLOOD SPECIMENOrdering Facility: [facility] Address: [address] [place] [address] Performed By: #### 5 7021-8 ####[facility] LABORATORYCLIA [id number] [place] [address] [place] Platelets (Bld) [#/Vol] 243 10*3/uL Normal 150-400 [facility] Comment on above: Order Comment: Speci men Type: BLOOD SPECIMENOrdering Facility: [facility] Address: [address] [place] [address] Performed By: #### 5 7021-8 ####[facility] LABORATORYCLIA [id number] [address] STATES [facility] RBC (Bld) [#/Vol] 3.12 10*6/uL Low 4.20-6.00 [facility] Comment on above: Order Comment: Speci men Type: BLOOD SPECIMENOrdering Facility: [facility] Address: [address] [place] [address] Performed By: #### 5 7021-8 ####[facility] LABORATORYCLIA [id number] [address] [place] WBC (Bld) [#/Vol] 10.40 10*3/uL Normal 3.70-11.00 [facility] Comment on above: Order Comment: Speci men Type: BLOOD SPECIMENOrdering Facility: [facility] Address: [address] [place] [address] Performed By: #### 5 7021-8 ####[facility] LABORATORYCLIA [id number] [address] [facility] CONSULT PROGon 07-25-2021 CONSULT PROG Normal [facility] MYCOPLASMA PNEUM IGMon 07-25 M. PNEUMO IGM, QUAL Negative Normal Negative [facility] Comment on above: Order Comment: Speci men Type: BLOOD SPECIMENOrdering Facility: [facility] Address: [address] [place] [address] Result Comment: Myco plasma pneumoniae IgM antibody test is used as an aid in diagnosis of recent infection with M. pneumoniae. It may occasionally remain elevated for extended periods after an acute infection. Cannot exclude recent infection if the specimen collected 7-10 days after onset of signs and symptoms. Clinical correlation is required. Performed By: #### M YCOPM ####[facility] LABCLIA [id number] [facility] [id number] [address] [place] NURSING PROGon 07-25-2021 NURSING PROG Normal [facility] THERAPY NTon 07-25-2021 THERAPY NT Normal [facility] THERAPY NT Normal [facility] aPTT PPPon 07-25-2021 aPTT Coag (PPP) [Time] 62.6 s High 23.0-32.4 [facility] Comment on above: Order Comment: Speci men Type: BLOOD SPECIMENOrdering Facility: [facility] Address: [address] [place] [address] Performed By: #### 1 4979-9 ####[facility] LABORATORYCLIA [id number] [address] [place] Bacteria Ur Culton Bacteria identified Cx Nom (U) CULTURE, URINE: No growth (<100 CFU/ml) Normal [facility] Comment on above: Performed By: #### 6 30-4 ####[facility] LABORATORYCLIA [id number] [place] [address] [place] Basic metabolic 2000 panelon 07-24-2021 Anion gap [Moles/Vol] 13 mmol/L Normal 9-18 [facility] Comment on above: Order Comment: Speci men Type: BLOOD SPECIMENOrdering Facility: [facility] Address: [address] [place] [address] Performed By: #### 1 9123-9, PROCAL, 2777-1, 63694-7 ####[facility] LABORATORYCLIA [id number] [place] [address] [place] Calcium [Mass/Vol] 9.5 mg/dL Normal 8.5-10.2 [facility] Comment on above: Order Comment: Speci men Type: BLOOD SPECIMENOrdering Facility: [facility] Address: [address] [place] [address] Performed By: #### 1 9123-9, PROCAL, 2777-1, 90446-1 ####[facility] LABORATORYCLIA [id number] [place] [address] [place] Chloride [Moles/Vol] 102 mmol/L Normal 97-105 [facility] Comment on above: Order Comment: Speci men Type: BLOOD SPECIMENOrdering Facility: [facility] Address: [address] [place] [address] Performed By: #### 1 9123-9, PROCAL, 7-1, 40409-2 ####[facility] LABORATORYCLIA [id number] [address] STATES [facility] CO2 [Moles/Vol] 28 mmol/L Normal 22-30 [facility] Comment on above: Order Comment: Speci men Type: BLOOD SPECIMENOrdering Facility: [facility] Address: [address] [place] [address] Performed By: #### 1 9123-9, PROCAL, 7-1, 39520-9 ####[facility] LABORATORYCLIA [id number] [place] [address] [place] Creatinine [Mass/Vol] 0.86 mg/dL Normal 0.73-1.22 [facility] Comment on above: Order Comment: Speci men Type: BLOOD SPECIMENOrdering Facility: [facility] Address: [address] [place] [address] Performed By: #### 1 9123-9, PROCAL, 2777-1, 01194-9 ####[facility] LABORATORYCLIA [id number] [address] [facility] ESTIMATED GLOMERULAR FILTRATION RATE 94 mL/min/1.73m??? Normal >=60 [facility] Comment on above: Order Comment: Shira feldman Type: BLOOD SPECIMENOrdering Facility: [facility] Address: [address] [place] [address] Result Comment: Luzmaria mated Glomerular Filtration Rate [...] Performed By: #### 1 9123-9, PROCCARLITOS, 2777-1, 49458-4 ####[facility] SERVICESCLIA [id number] [place] [address] [place] Glucose [Mass/Vol] 148 mg/dL High 74-99 [facility] Comment on above: Order Comment: Shira feldman Type: BLOOD SPECIMENOrdering Facility: [facility] Address: [address] [place] [address] Result Comment: The [place] [employer] (ADA) provides guidance for cutoff [...] Standards of Medical Care in Diabetes 2016, [place] [employer]. Diabetes Care. 2016.39(Suppl 1). Performed By: #### 1 9123-9, PROCAL, 2777-1, 28963-5 ####[facility] LABORATORYCLIA [id number] [place] [address] [place] Potassium [Moles/Vol] 4.0 mmol/L Normal 3.7-5.1 [facility] Comment on above: Order Comment: Shira feldman Type: BLOOD SPECIMENOrdering Facility: [facility] Address: [address] [place] [address] Performed By: #### 1 9123-9, KATIE, 2776-05, 48906-9 ####[facility] LABORATORYCLIA [id number] [address] [place] [facility] Sodium [Moles/Vol] 143 mmol/L Normal 136-144 [facility] Comment on above: Order Comment: Speci men Type: BLOOD SPECIMENOrdering Facility: [facility] Address: [address] [place] [address] Performed By: #### 1 9123-9, KATIE, 2776-, 26807-0 ####[facility] LABORATORYCLIA [id number] [address] [place] [facility] Urea nitrogen [Mass/Vol] 38 mg/dL High 9-24 [facility] Comment on above: Order Comment: Speci men Type: BLOOD SPECIMENOrdering Facility: [facility] Address: [address] [place] [address] Performed By: #### 1 9123-9, KATIE, 2776-05, 72449-3 ####[facility] LABORATORYCLIA [id number] [address] [place] [facility] CBC W Auto Differential pane l (Bld)on 07-24-2021 Basophils (Bld) [#/Vol] 0.06 10*3/uL Normal <0.11 [facility] Comment on above: Order Comment: Speci men Type: BLOOD SPECIMENOrdering Facility: [facility] Address: [address] [place] [address] Performed By: #### 5 7021-8 ####[facility] LABORATORYCLIA [id number] [address] Basophils/100 WBC (Bld) 0.6 % Normal [facility] Comment on above: Order Comment: Speci men Type: BLOOD SPECIMENOrdering Facility: [facility] Address: [address] [place] [address] Performed By: #### 5 7021-8 ####[facility]ORATORYCLIA [id number] [address] Differential cell count method Nom (Bld) Auto Normal [facility] Comment on above: Order Comment: Speci men Type: BLOOD SPECIMENOrdering Facility: [facility] Address: [address] [place] [address] Performed By: #### 5 7021-8 ####[facility]ORATORYCLIA [id number] [address] Eosinophils (Bld) [#/Vol] 0.03 10*3/uL Normal <0.46 [facility] Comment on above: Order Comment: Speci men Type: BLOOD SPECIMENOrdering Facility: [facility] Address: [address] [place] [address] Performed By: #### 5 7021-8 ####[facility] LABORATORYCLIA [id number] [address] Eosinophils/100 WBC (Bld) 0.3 % Normal [facility] Comment on above: Order Comment: Speci men Type: BLOOD SPECIMENOrdering Facility: [facility] Address: [address] [place] [address] Performed By: #### 5 7021-8 ####[facility] LABORATORYCLIA [id number] [address] Erythrocyte distribution width (RBC) [Ratio] 17.0 % High 11.5-15.0 [facility] Comment on above: Order Comment: Speci men Type: BLOOD SPECIMENOrdering Facility: [facility] Address: [address] [place] [address] Performed By: #### 5 7021-8 ####[facility] LABORATORYCLIA [id number] [address] Hematocrit (Bld) [Volume fraction] 30.5 % Low 39.0-51.0 [facility] Comment on above: Order Comment: Speci men Type: BLOOD SPECIMENOrdering Facility: [facility] Address: [address] [place] [address] Performed By: #### 5 7021-8 ####[facility]ORATORYCLIA [id number] [address] Hemoglobin (Bld) [Mass/Vol] 9.0 g/dL Low 13.0-17.0 [facility] Comment on above: Order Comment: Speci men Type: BLOOD SPECIMENOrdering Facility: [facility] Address: [address] [place] [address] Performed By: #### 5 7021-8 ####[facility] LABORATORYCLIA [id number] [address] IMMATURE GRAN % 0.5 % Normal [facility] Comment on above: Order Comment: Speci men Type: BLOOD SPECIMENOrdering Facility: [facility] Address: [address] [place] [address] Performed By: #### 5 7021-8 ####[facility] LABORATORYCLIA [id number] [address] IMMATURE GRAN ABS 0.05 k/uL Normal <0.10 [facility] Comment on above: Order Comment: Speci men Type: BLOOD SPECIMENOrdering Facility: [facility] Address: [address] [place] [address] Performed By: #### 5 7021-8 ####[facility] LABORATORYCLIA [id number] [address] [place] Lymphocytes (Bld) [#/Vol] 1.68 10*3/uL Normal 1.00-4.00 [facility] Comment on above: Order Comment: Speci men Type: BLOOD SPECIMENOrdering Facility: [facility] Address: [address] [place] [address] Performed By: #### 5 7021-8 ####[facility]ORYCLIA [id number] [address] Lymphocytes/100 WBC (Bld) 16.2 % Normal [facility] Comment on above: Order Comment: Speci men Type: BLOOD SPECIMENOrdering Facility: [facility] Address: [address] [place] [address] Performed By: #### 5 7021-8 ####[facility] LABORATORYCLIA [id number] [address] MCH (RBC) [Entitic mass] 27.4 pg Normal 26.0-34.0 [facility] Comment on above: Order Comment: Speci men Type: BLOOD SPECIMENOrdering Facility: [facility] Address: [address] [place] [address] Performed By: #### 5 7021-8 ####[facility] LABORATORYCLIA [id number] [address] MCHC (RBC) [Mass/Vol] 29.5 g/dL Low 30.5-36.0 [facility] Comment on above: Order Comment: Speci men Type: BLOOD SPECIMENOrdering Facility: [facility] Address: [address] [place] [address] Performed By: #### 5 7021-8 ####[facility] LABORATORYCLIA [id number] [address] MCV (RBC) [Entitic vol] 93.0 fL Normal 80.0-100.0 [facility] Comment on above: Order Comment: Speci men Type: BLOOD SPECIMENOrdering Facility: [facility] Address: [address] [place] [address] Performed By: #### 5 7021-8 ####[facility] LABORATORYCLIA [id number] [address] Monocytes (Bld) [#/Vol] 0.63 10*3/uL Normal <0.87 [facility] Comment on above: Order Comment: Speci men Type: BLOOD SPECIMENOrdering Facility: [facility] Address: [address] [place] [address] Performed By: #### 5 7021-8 ####[facility] LABORATORYCLIA [id number] [place] [address] [place] Monocytes/100 WBC (Bld) 6.1 % Normal [facility] Comment on above: Order Comment: Speci men Type: BLOOD SPECIMENOrdering Facility: [facility] Address: [address] [place] [address] Performed By: #### 5 7021-8 ####[facility] LABORATORYCLIA [id number] [place] [address] [place] Neutrophils (Bld) [#/Vol] 7.91 10*3/uL High 1.45-7.50 [facility] Comment on above: Order Comment: Speci men Type: BLOOD SPECIMENOrdering Facility: [facility] Address: [address] [place] [address] Performed By: #### 5 7021-8 ####[facility] LABORATORYCLIA [id number] [address] [place] Neutrophils/100 WBC (Bld) 76.3 % Normal [facility] Comment on above: Order Comment: Speci men Type: BLOOD SPECIMENOrdering Facility: [facility] Address: [address] [place] [address] Performed By: #### 5 7021-8 ####[facility] LABORATORYCLIA [id number] [place] [address] [place] Nucleated RBC (Bld) [#/Vol] 10*3/uL Normal <0.01 [facility] Comment on above: Order Comment: Speci men Type: BLOOD SPECIMENOrdering Facility: [facility] Address: [address] [place] [address] Performed By: #### 5 7021-8 ####[facility] LABORATORYCLIA [id number] [place] [address] [place] Nucleated RBC/100 WBC (Bld) [Ratio] 0.0 /100 WBC Normal [facility] Comment on above: Order Comment: Speci men Type: BLOOD SPECIMENOrdering Facility: [facility] Address: [address] [place] [address] Performed By: #### 5 7021-8 ####[facility] LABORATORYCLIA [id number] [address] Platelet mean volume (Bld) [Entitic vol] 11.1 fL Normal 9.0-12.7 [facility] Comment on above: Order Comment: Speci men Type: BLOOD SPECIMENOrdering Facility: [facility] Address: [address] [place] [address] Performed By: #### 5 7021-8 ####[facility] LABORATORYCLIA [id number] [address] [place] Platelets (Bld) [#/Vol] 285 10*3/uL Normal 150-400 [facility] Comment on above: Order Comment: Speci men Type: BLOOD SPECIMENOrdering Facility: [facility] Address: [address] [place] [address] Performed By: #### 5 7021-8 ####[facility] LABORATORYCLIA [id number] [address] [place] RBC (Bld) [#/Vol] 3.28 10*6/uL Low 4.20-6.00 [facility] Comment on above: Order Comment: Speci men Type: BLOOD SPECIMENOrdering Facility: [facility] Address: [address] [place] [address] Performed By: #### 5 7021-8 ####[facility] LABORATORYCLIA [id number] [address] [place] WBC (Bld) [#/Vol] 10.36 10*3/uL Normal 3.70-11.00 [facility] Comment on above: Order Comment: Speci men Type: BLOOD SPECIMENOrdering Facility: [facility] Address: [address] [place] [address] Performed By: #### 5 7021-8 ####[facility] LABORATORYCLIA [id number] [address] [place] Legionella Ag Ur Qlon 2021 Legionella sp Ag Ql (U) Negative Normal Negative [facility] Comment on above: Order Comment: Speci men Type: URINE SPECIMENOrdering Facility: [facility] Address: [address] [place] [address] Performed By: #### 3 2781-7 ####[facility] LABORATORYCLIA [id number] [place] [address] [place] Magnesium SerPl-mCncon 07-24 Magnesium [Mass/Vol] 2.3 mg/dL Normal 1.7-2.3 [facility] Comment on above: Order Comment: Speci men Type: BLOOD SPECIMENOrdering Facility: [facility] Address: [address] [place] [address] Performed By: #### 1 9123-9, PROCCARLITOS, 7-1, 97532-6 ####[facility] LABORATORYCLIA [id number] [address] [place] NURSING PROGon 07-24-2021 NURSING PROG Normal [facility] PROCALCITONIN (LAB)on 2021 Procalcitonin [Mass/Vol] 0.15 ng/mL High <0.09 [facility] Comment on above: Order Comment: Speci men Type: BLOOD SPECIMENOrdering Facility: [facility] Address: [address] [place] [address] Result Comment: For a guided interpretation of test results, please visit the Change in Procalcitonin Calculator, [email or web address]. Performed By: #### 1 9123-9, PROCAL, 2777-1, 56950-7 ####[facility] LABORATORYCLIA [id number] [place] [address] [place] Phosphate SerPl-mCncon 07-24 Phosphate [Mass/Vol] 3.9 mg/dL Normal 2.7-4.8 [facility] Comment on above: Order Comment: Speci men Type: BLOOD SPECIMENOrdering Facility: [facility] Address: [address] [place] [address] Performed By: #### 1 9123-9, PROCAL, 2777-1, 59877-6 ####[facility] LABORATORYCLIA [id number] [address] [place] STREPTOCOCCUS PNEUMONIAE AGo n 07-24-2021 STREPTOCOCCUS PNEUMONIAE AG Normal [facility] Comment on above: Performed By: #### S PNAG ####[facility] LABORATORYCLIA [id number] [address] [place] aPTT PPPon 07-24-2021 aPTT Coag (PPP) [Time] 60.8 s High 23.0-32.4 [facility] Comment on above: Order Comment: Speci men Type: BLOOD SPECIMENOrdering Facility: [facility] Address: [address] [place] [address] Performed By: #### 1 4979-9 ####[facility] LABORATORYCLIA [id number] [address] STATES [facility] aPTT Coag (PPP) [Time] 38.2 s High 23.0-32.4 [facility] Comment on above: Order Comment: Speci men Type: BLOOD SPECIMENOrdering Facility: [facility] Address: [address] [place] [address] Performed By: #### 1 4979-9 ####[facility] LABORATORYCLIA [id number] [address] STATES [facility] aPTT Coag (PPP) [Time] 35.9 s High 23.0-32.4 [facility] Comment on above: Order Comment: Speci men Type: BLOOD SPECIMENOrdering Facility: [facility] Address: [address] [place] [address] Performed By: #### 1 4979-9 ####[facility] LABORATORYCLIA [id number] [address] aPTT Coag (PPP) [Time] 28.8 s Normal 23.0-32.4 [facility] Comment on above: Order Comment: Speci men Type: BLOOD SPECIMENOrdering Facility: [facility] Address: [address] [place] [address] Performed By: #### 1 4979-9 ####[facility] LABORATORYCLIA [id number] [address] [place] ALLIED HEALTHon 07-23-2021 ALLIED HEALTH Normal [facility] ALLIED HEALTH Normal [facility] ALLIED HEALTH Normal [facility] ARTERIAL BLOOD GASESon 07-23 Base excess Calc (Bld) [Moles/Vol] 4 mmol/L High 0-2 [facility] Comment on above: Order Comment: Speci men Type: ARTERIAL BLOOD SPECIMENOrdering Facility: [facility] Address: [address] [place] [address] Performed By: #### A LLBG ####[facility]ORATORYCLIA [id number] [address] Body temperature 100.58 [degF] Normal [facility] Comment on above: Order Comment: Speci men Type: ARTERIAL BLOOD SPECIMENOrdering Facility: [facility] Address: [address] [place] [address] Performed By: #### A LLBG ####[facility] LABORATORYCLIA [id number] [place] [address] [place] CALCIUM IONIZED, PH CORRECTED 1.26 mmol/L Normal 1.08-1.30 [facility] Comment on above: Order Comment: Speci men Type: ARTERIAL BLOOD SPECIMENOrdering Facility: [facility] Address: [address] [place] [address] Performed By: #### A LLBG ####[facility] LABORATORYCLIA [id number] [address] [place] Calcium.ionized (BldV) [Mass/Vol] 1.25 mmol/L Normal 1.08-1.30 [facility] Comment on above: Order Comment: Speci men Type: ARTERIAL BLOOD SPECIMENOrdering Facility: [facility] Address: [address] [place] [address] Performed By: #### A LLBG ####[facility] LABORATORYCLIA [id number] [address] [place] Carboxyhemoglobin (BldA) [Mass fraction] 1.2 % Normal 0.0-2.0 [facility] Comment on above: Order Comment: Speci men Type: ARTERIAL BLOOD SPECIMENOrdering Facility: [facility] Address: [address] [place] [address] Result Comment: Carb oxyhemoglobin Reference Range for Smokers: 2.0-8.0% Performed By: #### A LLBG ####[facility] LABORATORYCLIA [id number] [address] [place] CO2 (Bld) [Partial pressure] 46 mm Hg Normal 36-46 [facility] Comment on above: Order Comment: Speci men Type: ARTERIAL BLOOD SPECIMENOrdering Facility: [facility] Address: [address] [place] [address] Performed By: #### A LLBG ####[facility]ORATORYCLIA [id number] [address] [place] CO2 [Moles/Vol] 27 mmol/L Normal 22-28 [facility] Comment on above: Order Comment: Speci men Type: ARTERIAL BLOOD SPECIMENOrdering Facility: [facility] Address: [address] [place] [address] Performed By: #### A LLBG ####[facility] LABORATORYCLIA [id number] [address] [place] CO2 adjusted to patient's actual temperature (Bld) [Partial pressure] 48 mmHg High 36-46 [facility] Comment on above: Order Comment: Speci men Type: ARTERIAL BLOOD SPECIMENOrdering Facility: [facility] Address: [address] [place] [address] Performed By: #### A LLBG ####[facility] LABORATORYCLIA [id number] [place] [address] [place] Glucose [Mass/Vol] 134 mg/dL High 60-105 [facility] Comment on above: Order Comment: Speci men Type: ARTERIAL BLOOD SPECIMENOrdering Facility: [facility] Address: [address] [place] [address] Performed By: #### A LLBG ####[facility] LABORATORYCLIA [id number] [address] [facility] HCO3 (Bld) [Moles/Vol] 29 mmol/L High 22-26 [facility] Comment on above: Order Comment: Speci men Type: ARTERIAL BLOOD SPECIMENOrdering Facility: [facility] Address: [address] [place] [address] Performed By: #### A LLBG ####[facility] LABORATORYCLIA [id number] [address] [facility] Hematocrit (Bld) [Volume fraction] 31.4 % Low 39.0-51.0 [facility] Comment on above: Order Comment: Speci men Type: ARTERIAL BLOOD SPECIMENOrdering Facility: [facility] Address: [address] [place] [address] Performed By: #### A LLBG ####[facility] LABORATORYCLIA [id number] [address] Hemoglobin (Bld) [Mass/Vol] 10.2 g/dL Low 13.0-17.0 [facility] Comment on above: Order Comment: Speci men Type: ARTERIAL BLOOD SPECIMENOrdering Facility: [facility] Address: [address] [place] [address] Performed By: #### A LLBG ####[facility] LABORATORYCLIA [id number] [address] [place] Methemoglobin (Bld) [Mass fraction] % Normal 0.0-1.5 [facility] Comment on above: Order Comment: Speci men Type: ARTERIAL BLOOD SPECIMENOrdering Facility: [facility] Address: [address] [place] [address] Performed By: #### A LLBG ####[facility] LABORATORYCLIA [id number] [address] [place] O2 THERAPY Ventilator Normal [facility] Comment on above: Order Comment: Speci men Type: ARTERIAL BLOOD SPECIMENOrdering Facility: [facility] Address: [address] [place] [address] Performed By: #### A LLBG ####[facility] LABORATORYCLIA [id number] [address] [place] Oxygen (Bld) [Partial pressure] 113 mm Hg High 85-95 [facility] Comment on above: Order Comment: Speci men Type: ARTERIAL BLOOD SPECIMENOrdering Facility: [facility] Address: [address] [place] [address] Performed By: #### A LLBG ####[facility] LABORATORYCLIA [id number] [address] Oxygen adjusted to patient's actual temperature (Bld) [Partial pressure] 119 mmHg High 85-95 [facility] Comment on above: Order Comment: Speci men Type: ARTERIAL BLOOD SPECIMENOrdering Facility: [facility] Address: [address] [place] [address] Performed By: #### A LLBG ####[facility] LABORATORYCLIA [id number] [address] [place] OXYGEN SATURATION, ARTERIAL 98 % Normal 95-98 [facility] Comment on above: Order Comment: Speci men Type: ARTERIAL BLOOD SPECIMENOrdering Facility: [facility] Address: [address] [place] [address] Performed By: #### A LLBG ####[facility] LABORATORYCLIA [id number] [address] [place] Oxyhemoglobin (BldA) [Mass fraction] 96 % Normal 95-98 [facility] Comment on above: Order Comment: Speci men Type: ARTERIAL BLOOD SPECIMENOrdering Facility: [facility] Address: [address] [place] [address] Performed By: #### A LLBG ####[facility] LABORATORYCLIA [id number] [place] [address] [place] pH (Bld) 7.41 [pH] Normal 7.35-7.45 [facility] Comment on above: Order Comment: Speci men Type: ARTERIAL BLOOD SPECIMENOrdering Facility: [facility] Address: [address] [place] [address] Performed By: #### A LLBG ####[facility] LABORATORYCLIA [id number] [place] [address] [place] pH adjusted to patient's actual temperature (Bld) 7.40 Normal 7.35-7.45 [facility] Comment on above: Order Comment: Speci men Type: ARTERIAL BLOOD SPECIMENOrdering Facility: [facility] Address: [address] [place] [address] Performed By: #### A LLBG ####[facility] LABORATORYCLIA [id number] [address] [place] Potassium [Moles/Vol] 4.3 mmol/L Normal 3.5-5.0 [facility] Comment on above: Order Comment: Speci men Type: ARTERIAL BLOOD SPECIMENOrdering Facility: [facility] Address: [address] [place] [address] Performed By: #### A LLBG ####[facility] LABORATORYCLIA [id number] [address] [place] [facility] Sodium [Moles/Vol] 144 mmol/L Normal 136-144 [facility] Comment on above: Order Comment: Speci men Type: ARTERIAL BLOOD SPECIMENOrdering Facility: [facility] Address: [address] [place] [address] Performed By: #### A LLBG ####[facility] LABORATORYCLIA [id number] [place] [address] [place] Bacteria CSF Culton 07-24-19 22 Bacteria identified Cx Nom (CSF) Abnormal [facility] Comment on above: Performed By: #### 6 06-4 ####[facility]ORATORYCLIA [id number] [place] [address] [place] Basic metabolic 2000 panelon 07-23-2021 Anion gap [Moles/Vol] 12 mmol/L Normal 9-18 [facility] Comment on above: Order Comment: Speci men Type: BLOOD SPECIMENOrdering Facility: [facility] Address: [address] [address] Performed By: #### 2 4321-2 ####[facility] LABORATORYCLIA [id number] [place] [address] [place] Calcium [Mass/Vol] 9.7 mg/dL Normal 8.5-10.2 [facility] Comment on above: Order Comment: Speci men Type: BLOOD SPECIMENOrdering Facility: [facility] Address: [address] [place] [address] Performed By: #### 2 4321-2 ####[facility] LABORATORYCLIA [id number] [place] [address] [place] Chloride [Moles/Vol] 105 mmol/L Normal 97-105 [facility] Comment on above: Order Comment: Speci men Type: BLOOD SPECIMENOrdering Facility: [facility] Address: [address] [place] [address] Performed By: #### 2 4321-2 ####[facility] LABORATORYCLIA [id number] [place] [address] [place] CO2 [Moles/Vol] 28 mmol/L Normal 22-30 [facility] Comment on above: Order Comment: Speci men Type: BLOOD SPECIMENOrdering Facility: [facility] Address: [address] [place] [address] Performed By: #### 2 4321-2 ####[facility] LABORATORYCLIA [id number] [place] [address] [place] Creatinine [Mass/Vol] 0.78 mg/dL Normal 0.73-1.22 [facility] Comment on above: Order Comment: Speci men Type: BLOOD SPECIMENOrdering Facility: [facility] Address: [address] [place] [address] Performed By: #### 2 4321-2 ####[facility]PITALIA [id number] [place] [address] [place] ESTIMATED GLOMERULAR FILTRATION RATE 97 mL/min/1.73m??? Normal >=60 [facility] Comment on above: Order Comment: Shira feldman Type: BLOOD SPECIMENOrdering Facility: [facility] Address: [address] [place] [address] Result Comment: Luzmaria mated Glomerular Filtration Rate [...] GFR. Performed By: #### 2 4321-2 ####[facility] HOSPITALIA [id number] [place] [address] [place] Glucose [Mass/Vol] 127 mg/dL High 74-99 [facility] Comment on above: Order Comment: Shira feldman Type: BLOOD SPECIMENOrdering Facility: [facility] Address: [address] [place] [address] Result Comment: The [place] [employer] (ADA) provides guidance for cutoff [...] Standards of Medical Care in Diabetes 2016, [place] [employer]. Diabetes Care. 2016.39(Suppl 1). Performed By: #### 2 4321-2 ####[facility] LABORATORYCLIA [id number] [place] [address] [place] Potassium [Moles/Vol] 4.3 mmol/L Normal 3.7-5.1 [facility] Comment on above: Order Comment: Speci men Type: BLOOD SPECIMENOrdering Facility: [facility] Address: [address] [place] [address] Performed By: #### 2 4321-2 ####[facility] LABORATORYCLIA [id number] [place] [address] [place] Sodium [Moles/Vol] 145 mmol/L High 136-144 [facility] Comment on above: Order Comment: Speci men Type: BLOOD SPECIMENOrdering Facility: [facility] Address: [address] [place] [address] Performed By: #### 2 4321-2 ####[facility] [facility] LABORATORYCLIA [id number] [address] [place] Urea nitrogen [Mass/Vol] 37 mg/dL High 9-24 [facility] Comment on above: Order Comment: Speci men Type: BLOOD SPECIMENOrdering Facility: [facility] Address: [address] [place] [address] Performed By: #### 2 4321-2 ####[facility] LABORATORYCLIA [id number] [address] [place] C diff Tox gens Stl Ql MEGAN+p robeon 07-23-2021 C. difficile toxin genes MEGAN+probe Ql (Stl) Negative Normal Negative for C. difficile toxin by PCR [facility] Comment on above: Order Comment: Speci men Type: STOOL SPECIMENOrdering Facility: [facility] Address: [address] [place] [address] Performed By: #### 5 4067-4 ####[facility] LABORATORYCLIA [id number] [place] [address] [place] CBC W Auto Differential pane l (Bld)on 07-23-2021 Basophils (Bld) [#/Vol] 0.07 10*3/uL Normal <0.11 [facility] Comment on above: Order Comment: Speci men Type: BLOOD SPECIMENOrdering Facility: [facility] Address: [address] [place] [address] Performed By: #### 5 7021-8 ####[facility]ORATORYCLIA [id number] [address] [place] Basophils/100 WBC (Bld) 0.5 % Normal [facility] Comment on above: Order Comment: Speci men Type: BLOOD SPECIMENOrdering Facility: [facility] Address: [address] [place] [address] Performed By: #### 5 7021-8 ####[facility] LABORATORYCLIA [id number] [address] [place] Differential cell count method Nom (Bld) Auto Normal [facility] Comment on above: Order Comment: Speci men Type: BLOOD SPECIMENOrdering Facility: [facility] Address: [address] [place] [address] Performed By: #### 5 7021-8 ####[facility] LABORATORYCLIA [id number] [address] [place] Eosinophils (Bld) [#/Vol] 10*3/uL Normal <0.46 [facility] Comment on above: Order Comment: Speci men Type: BLOOD SPECIMENOrdering Facility: [facility] Address: [address] [place] [address] Performed By: #### 5 7021-8 ####[facility] LABORATORYCLIA [id number] [address] [place] Eosinophils/100 WBC (Bld) 0.2 % Normal [facility] Comment on above: Order Comment: Speci men Type: BLOOD SPECIMENOrdering Facility: [facility] Address: [address] [place] [address] Performed By: #### 5 7021-8 ####[facility] LABORATORYCLIA [id number] [address] [place] Erythrocyte distribution width (RBC) [Ratio] 16.7 % High 11.5-15.0 [facility] Comment on above: Order Comment: Speci men Type: BLOOD SPECIMENOrdering Facility: [facility] Address: [address] [address] Performed By: #### 5 7021-8 ####[facility] LABORATORYCLIA [id number] [address] Hematocrit (Bld) [Volume fraction] 32.8 % Low 39.0-51.0 [facility] Comment on above: Order Comment: Speci men Type: BLOOD SPECIMENOrdering Facility: [facility] Address: [address] [place] [address] Performed By: #### 5 7021-8 ####[facility] LABORATORYCLIA [id number] [address] Hemoglobin (Bld) [Mass/Vol] 9.7 g/dL Low 13.0-17.0 [facility] Comment on above: Order Comment: Speci men Type: BLOOD SPECIMENOrdering Facility: [facility] Address: [address] [place] [address] Performed By: #### 5 7021-8 ####[facility] LABORATORYCLIA [id number] [address] IMMATURE GRAN % 0.7 % Normal [facility] Comment on above: Order Comment: Speci men Type: BLOOD SPECIMENOrdering Facility: [facility] Address: [address] [place] [address] Performed By: #### 5 7021-8 ####[facility] LABORATORYCLIA [id number] [address] IMMATURE GRAN ABS 0.09 k/uL Normal <0.10 [facility] Comment on above: Order Comment: Speci men Type: BLOOD SPECIMENOrdering Facility: [facility] Address: [address] [place] [address] Performed By: #### 5 7021-8 ####[facility] LABORATORYCLIA [id number] [address] OF [facility] Lymphocytes (Bld) [#/Vol] 1.94 10*3/uL Normal 1.00-4.00 [facility] Comment on above: Order Comment: Speci men Type: BLOOD SPECIMENOrdering Facility: [facility] Address: [address] [place] [address] Performed By: #### 5 7021-8 ####[facility] LABORATORYCLIA [id number] [address] Lymphocytes/100 WBC (Bld) 14.6 % Normal [facility] Comment on above: Order Comment: Speci men Type: BLOOD SPECIMENOrdering Facility: [facility] Address: [address] [place] [address] Performed By: #### 5 7021-8 ####[facility] LABORATORYCLIA [id number] [address] STATES [facility] MCH (RBC) [Entitic mass] 27.2 pg Normal 26.0-34.0 [facility] Comment on above: Order Comment: Speci men Type: BLOOD SPECIMENOrdering Facility: [facility] Address: [address] [place] [address] Performed By: #### 5 7021-8 ####[facility] LABORATORYCLIA [id number] [address] STATES OF [facility] MCHC (RBC) [Mass/Vol] 29.6 g/dL Low 30.5-36.0 [facility] Comment on above: Order Comment: Speci men Type: BLOOD SPECIMENOrdering Facility: [facility] Address: [address] [place] [address] Performed By: #### 5 7021-8 ####[facility] LABORATORYCLIA [id number] [address] [place] MCV (RBC) [Entitic vol] 92.1 fL Normal 80.0-100.0 [facility] Comment on above: Order Comment: Speci men Type: BLOOD SPECIMENOrdering Facility: [facility] Address: [address] [place] [address] Performed By: #### 5 7021-8 ####[facility] LABORATORYCLIA [id number] [address] [place] Monocytes (Bld) [#/Vol] 0.74 10*3/uL Normal <0.87 [facility] Comment on above: Order Comment: Speci men Type: BLOOD SPECIMENOrdering Facility: [facility] Address: [facility] [place] [address] Performed By: #### 5 7021-8 ####[facility] LABORATORYCLIA [id number] [address] [place] Monocytes/100 WBC (Bld) 5.6 % Normal [facility] Comment on above: Order Comment: Speci men Type: BLOOD SPECIMENOrdering Facility: [facility] Address: [address] [place] [address] Performed By: #### 5 7021-8 ####[facility] LABORATORYCLIA [id number] [address] [place] Neutrophils (Bld) [#/Vol] 10.43 10*3/uL High 1.45-7.50 [facility] Comment on above: Order Comment: Speci men Type: BLOOD SPECIMENOrdering Facility: [facility] Address: [address] [place] [address] Performed By: #### 5 7021-8 ####[facility] LABORATORYCLIA [id number] [address] [place] Neutrophils/100 WBC (Bld) 78.4 % Normal [facility] Comment on above: Order Comment: Speci men Type: BLOOD SPECIMENOrdering Facility: [facility] Address: [address] [place] [address] Performed By: #### 5 7021-8 ####[facility] LABORATORYCLIA [id number] [address] [place] Nucleated RBC (Bld) [#/Vol] 10*3/uL Normal <0.01 [facility] Comment on above: Order Comment: Speci men Type: BLOOD SPECIMENOrdering Facility: [facility] Address: [address] [place] [address] Performed By: #### 5 7021-8 ####[facility] LABORATORYCLIA [id number] [address] [place] Nucleated RBC/100 WBC (Bld) [Ratio] 0.0 /100 WBC Normal [facility] Comment on above: Order Comment: Speci men Type: BLOOD SPECIMENOrdering Facility: [facility] Address: [address] [place] [address] Performed By: #### 5 7021-8 ####[facility] LABORATORYCLIA [id number] [address] [place] Platelet mean volume (Bld) [Entitic vol] 11.0 fL Normal 9.0-12.7 [facility] Comment on above: Order Comment: Speci men Type: BLOOD SPECIMENOrdering Facility: [facility] Address: [address] [place] [address] Performed By: #### 5 7021-8 ####[facility] LABORATORYCLIA [id number] [address] [place] Platelets (Bld) [#/Vol] 381 10*3/uL Normal 150-400 [facility] Comment on above: Order Comment: Speci men Type: BLOOD SPECIMENOrdering Facility: [facility] Address: [address] [place] [address] Performed By: #### 5 7021-8 ####[facility] LABORATORYCLIA [id number] [address] [place] RBC (Bld) [#/Vol] 3.56 10*6/uL Low 4.20-6.00 [facility] Comment on above: Order Comment: Speci men Type: BLOOD SPECIMENOrdering Facility: [facility] Address: [address] [place] [address] Performed By: #### 5 7021-8 ####[facility] LABORATORYCLIA [id number] [address] [place] WBC (Bld) [#/Vol] 13.29 10*3/uL High 3.70-11.00 [facility] Comment on above: Order Comment: Speci men Type: BLOOD SPECIMENOrdering Facility: [facility] Address: [address] [place] [address] Performed By: #### 5 7021-8 ####[facility] LABORATORYCLIA [id number] [address] [place] CONSULT PROGon 07-23-2021 CONSULT PROG Normal [facility] CONSULT PROG Normal [facility] CSF MANUAL DIFFon 07-23-2021 DIF TTL, CSF 100 cells counted Normal [facility] Comment on above: Order Comment: Speci men Type: CEREBROSPINAL FLUIDOrdering Facility: [facility] Address: [address] [place] [address] Performed By: #### L [id number], [id number], 06275-3 ####[facility] LABORATORYCLIA [id number] [place] [address] [place] LYMPH%, CSF 2 % Low 50-90 [facility] Comment on above: Order Comment: Speci men Type: CEREBROSPINAL FLUIDOrdering Facility: [facility] Address: [address] [place] [address] Performed By: #### L [id number], EDE0600, 31651-0 ####[facility] LABORATORYCLIA [id number] [place] [address] [place] MONO%, CSF 9 % Low 10-50 [facility] Comment on above: Order Comment: Speci men Type: CEREBROSPINAL FLUIDOrdering Facility: [facility] Address: [address] [place] [address] Performed By: #### L [id number], CDE6412, 38449-7 ####[facility] LABORATORYCLIA [id number] [place] [address] [place] NEUT%, CSF 89 % High 0-3 [facility] Comment on above: Order Comment: Speci men Type: CEREBROSPINAL FLUIDOrdering Facility: [facility] Address: [address] [place] [address] Performed By: #### L [id number], WBP5968, 17008-5 ####[facility] LABORATORYCLIA [id number] [address] CSF PATHOLOGIST INTERP (LAB REFLEX ORDER-NO BILL)on 07-23-2021 CSF STAFF REVIEW Negative for maligna nt cells. Numerous bacterial organisms present, cocci in pairs and chains. Recommend correlation with CSF culture results. Normal [facility] Comment on above: Order Comment: Speci men Type: CEREBROSPINAL FLUIDOrdering Facility: [facility] Address: [address] [place] [address] Performed By: #### L [id number], [id number], 73382-2 ####[facility] LABORATORYCLIA [id number] [address] Pathologist name Reviewed by Amador Stevens MD [facility] Comment on above: Order Comment: Speci men Type: CEREBROSPINAL FLUIDOrdering Facility: [facility] Address: [address] [place] [address] Performed By: #### L [id number], SFF2985, 41794-6 ####[facility] LABORATORYCLIA [id number] [address] BRAIN WO IVCONon 07-24-[address] BRAIN WO IVCON Normal [facility] Cell count panel (CSF)on Clarity (CSF) Clear Normal Clear [facility] Comment on above: Order Comment: Speci men Type: CEREBROSPINAL FLUIDOrdering Facility: [facility] Address: [address] [place] [address] Performed By: #### L [id number], GKY8858, 05300-5 ####[facility] LABORATORYCLIA [id number] [address] Clarity (Unsp spec) Not Indicated Normal Clear [facility] Comment on above: Order Comment: Speci men Type: CEREBROSPINAL FLUIDOrdering Facility: [facility] Address: [address] [place] [address] Performed By: #### L [id number], FOO1963, 39599-6 ####[facility] LABORATORYCLIA [id number] [address] Color (CSF) Colorless Normal Colorless [facility] Comment on above: Order Comment: Speci men Type: CEREBROSPINAL FLUIDOrdering Facility: [facility] Address: [address] [place] [address] Performed By: #### L [id number], DCX7832, 99979-3 ####[facility] LABORATORYCLIA [id number] [address] Color (Spun CSF) Not Indicated Normal Colorless [facility] Comment on above: Order Comment: Speci men Type: CEREBROSPINAL FLUIDOrdering Facility: [facility] Address: [address] [place] [address] Performed By: #### L [id number], GAX6997, 71016-4 ####[facility] LABORATORYCLIA [id number] [address] CSF [employer] Normal [facility] Comment on above: Order Comment: Speci men Type: CEREBROSPINAL FLUIDOrdering Facility: [facility] Address: [address] [place] [address] Performed By: #### L [id number], [id number], 49191-5 ####[facility] LABORATORYCLIA [id number] [address] RBC Manual cnt (CSF) [#/Vol] 7 cells/uL High 0-5 [facility] Comment on above: Order Comment: Speci men Type: CEREBROSPINAL FLUIDOrdering Facility: [facility] Address: [address] [place] [address] Performed By: #### L [id number], MQG6428, 84683-5 ####[facility] LABORATORYCLIA [id number] [address] WBC Manual cnt (CSF) [#/Vol] 193 cells/uL High 0-5 [facility] Comment on above: Order Comment: Speci men Type: CEREBROSPINAL FLUIDOrdering Facility: [facility] Address: [address] [place] [address] Performed By: #### L [id number], CLX9638, 95641-0 ####[facility] LABORATORYCLIA [id number] [address] [place] Glucose CSF-ncon Glucose (CSF) [Mass/Vol] 81 mg/dL High 40-70 [facility] Comment on above: Order Comment: Speci men Type: CEREBROSPINAL FLUIDOrdering Facility: [facility] Address: [address] [place] [address] Result Comment: Lumb ar CSF glucose values of healthy patients are approximately 60% of the plasma values and must always be compared with a concurrently measured plasma value for adequate clinical interpretation.References: 1. Glucose HK (GLUC3) [package insert V 12.0 [place]]. [employer], [place], [place]. September 2015. 2. Michelle Moore, Loki HGarfield (2015). Chapter 7: Glucose and Lactate. FGarfield Alcocer al.(eds.), Cerebrospinal Fluid in Clinical Neurology. [place]: [employer]. Performed By: #### 2 342-4, 2880-3 ####[facility] LABORATORYCLIA [id number] [place] [address] [place] NURSING PROGon 07-23-2021 NURSING PROG Normal [facility] NURSING PROG Normal [facility] Prot CSF-ncon 07-23-2021 Protein (CSF) [Mass/Vol] 68 mg/dL High 15-45 [facility] Comment on above: Order Comment: Speci men Type: CEREBROSPINAL FLUIDOrdering Facility: [facility] Address: [address] [place] [address] Performed By: #### 2 342-4, 2880-3 ####[facility] LABORATORYCLIA [id number] [address] [place] Urinalysis complete panel (U )on 07-23-2021 Bilirubin Ql (U) Negative Normal Negative [facility] Comment on above: Order Comment: Speci men Type: URINE SPECIMENOrdering Facility: [facility] Address: [address] [place] [address] Performed By: #### 2 4356-8 ####[facility] LABORATORYCLIA [id number] [address] Clarity (Unsp spec) Clear Normal Clear [facility] Comment on above: Order Comment: Speci men Type: URINE SPECIMENOrdering Facility: [facility] Address: [address] [place] [address] Performed By: #### 2 4356-8 ####[facility] LABORATORYCLIA [id number] [address] Color (U) Light Yellow Normal yellow [facility] Comment on above: Order Comment: Speci men Type: URINE SPECIMENOrdering Facility: [facility] Address: [address] [place] [address] Performed By: #### 2 4356-8 ####[facility] LABORATORYCLIA [id number] [address] [place] Glucose Test strip (U) [Mass/Vol] Negative Normal Negative [facility] Comment on above: Order Comment: Speci men Type: URINE SPECIMENOrdering Facility: [facility] Address: [address] [place] [address] Performed By: #### 2 4356-8 ####[facility] LABORATORYCLIA [id number] [address] [place] Hemoglobin Ql (U) Negative Normal Negative [facility] Comment on above: Order Comment: Speci men Type: URINE SPECIMENOrdering Facility: [facility] Address: [address] [place] [address] Performed By: #### 2 4356-8 ####[facility] LABORATORYCLIA [id number] [address] Ketones Ql (U) Negative Normal Negative [facility] Comment on above: Order Comment: Speci men Type: URINE SPECIMENOrdering Facility: [facility] Address: [address] [address] Performed By: #### 2 4356-8 ####[facility] LABORATORYCLIA [id number] [address] Leukocyte esterase Test strip Ql (U) Negative Normal Negative [facility] Comment on above: Order Comment: Speci men Type: URINE SPECIMENOrdering Facility: [facility] Address: [address] [place] [address] Performed By: #### 2 4356-8 ####[facility] LABORATORYCLIA [id number] [address] Nitrite Ql (U) Negative Normal Negative [facility] Comment on above: Order Comment: Speci men Type: URINE SPECIMENOrdering Facility: [facility] Address: [address] [place] [address] Performed By: #### 2 4356-8 ####[facility] LABORATORYCLIA [id number] [address] pH (U) 6.0 [pH] Normal 5.0-8.0 [facility] Comment on above: Order Comment: Speci men Type: URINE SPECIMENOrdering Facility: [facility] Address: [address] [place] [address] Performed By: #### 2 4356-8 ####[facility] LABORATORYCLIA [id number] [address] Protein (U) [Mass/Vol] 1+ Abnormal Negative [facility] Comment on above: Order Comment: Speci men Type: URINE SPECIMENOrdering Facility: [facility] Address: [address] [place] [address] Performed By: #### 2 4356-8 ####[facility] LABORATORYCLIA [id number] [address] RBC LM.HPF (Urine sed) [#/Area] 0-3 /HPF Normal 0-3 /HPF [facility] Comment on above: Order Comment: Speci men Type: URINE SPECIMENOrdering Facility: [facility] Address: [address] [address] Performed By: #### 2 4356-8 ####[facility] LABORATORYCLIA [id number] [address] Specific gravity (U) [Rel density] 1.018 Normal 1.005-1.030 [facility] Comment on above: Order Comment: Speci men Type: URINE SPECIMENOrdering Facility: [facility] Address: [address] [place] [address] Performed By: #### 2 4356-8 ####[facility] LABORATORYCLIA [id number] [address] Urobilinogen Ql (U) Normal Normal Negative [facility] Comment on above: Order Comment: Speci men Type: URINE SPECIMENOrdering Facility: [facility] Address: [address] [place] [address] Performed By: #### 2 4356-8 ####[facility] LABORATORYCLIA [id number] [address] WBC LM.HPF (Urine sed) [#/Area] 0-5 /HPF Normal 0-5 /HPF [facility] Comment on above: Order Comment: Speci men Type: URINE SPECIMENOrdering Facility: [facility] Address: [address] [place] [address] Performed By: #### 2 4356-8 ####[facility] LABORATORYCLIA [id number] [address] Vancomycin random [Mass/Vol] on 07-23-2021 Vancomycin [Mass/Vol] 12.9 ug/mL Normal 10.0-20.0 [facility] Comment on above: Order Comment: Speci men Type: BLOOD SPECIMENOrdering Facility: [facility] Address: [address] [place] [address] Result Comment: Refe rence ranges and high/low indicator flags are provided as general guidelines only. The treating physician must determine appropriate target levels/dosing based on the specific clinical situation. Performed By: #### 4 091-5 ####[facility] LABORATORYCLIA [id number] [address] XR CHEST 1V FRONTALon 2021 XR CHEST 1V FRONTAL Normal [facility] XR CHEST 1V FRONTAL Normal [facility] aPTT PPPon 07-23-2021 aPTT Coag (PPP) [Time] 32.3 s Normal 23.0-32.4 [facility] Comment on above: Order Comment: Speci men Type: BLOOD SPECIMENOrdering Facility: [facility] Address: [address] [place] [address] Performed By: #### 1 4979-9 ####[facility] LABORATORYCLIA [id number] [address] aPTT Coag (PPP) [Time] 57.9 s High 23.0-32.4 [facility] Comment on above: Order Comment: Speci men Type: BLOOD SPECIMENOrdering Facility: [facility] Address: [address] [place] [address] Performed By: #### 1 4979-9 ####[facility] LABORATORYCLIA [id number] [address] aPTT Coag (PPP) [Time] 46.3 s High 23.0-32.4 [facility] Comment on above: Order Comment: Speci men Type: BLOOD SPECIMENOrdering Facility: [facility] Address: [address] [place] [address] Performed By: #### 1 4979-9 ####[facility] LABORATORYCLIA [id number] [address] [place] Basic metabolic 2000 panelon 07-22-2021 Anion gap [Moles/Vol] 8 mmol/L Low - [facility] Comment on above: Order Comment: Speci men Type: BLOOD SPECIMENOrdering Facility: [facility] Address: [address] [place] [address] Performed By: #### 2 4321-2 ####[facility]ORATORYCLIA [id number] [place] [address] [place] Calcium [Mass/Vol] 9.5 mg/dL Normal 8.5-10.2 [facility] Comment on above: Order Comment: Speci men Type: BLOOD SPECIMENOrdering Facility: [facility] Address: [address] [place] [address] Performed By: #### 2 4321-2 ####[facility]ORATORYCLIA [id number] [address] [place] Chloride [Moles/Vol] 105 mmol/L Normal 97-105 [facility] Comment on above: Order Comment: Speci men Type: BLOOD SPECIMENOrdering Facility: [facility] Address: [address] [place] [address] Performed By: #### 2 4321-2 ####[facility] LABORATORYCLIA [id number] [address] [place] CO2 [Moles/Vol] 32 mmol/L High 22-30 [facility] Comment on above: Order Comment: Speci men Type: BLOOD SPECIMENOrdering Facility: [facility] Address: [address] [place] [address] Performed By: #### 2 4321-2 ####[facility] LABORATORYCLIA [id number] [address] [place] Creatinine [Mass/Vol] 0.75 mg/dL Normal 0.73-1.22 [facility] Comment on above: Order Comment: Speci men Type: BLOOD SPECIMENOrdering Facility: [facility] Address: [address] [place] [address] Performed By: #### 2 4321-2 ####[facility] LABORATORYCLIA [id number] [address] ESTIMATED GLOMERULAR FILTRATION RATE 98 mL/min/1.73m??? Normal >=60 [facility] Comment on above: Order Comment: Speci men Type: BLOOD SPECIMENOrdering Facility: [facility] Address: [address] [phone] Result Comment: Luzmaria mated Glomerular Filtration Rate [...] GFR. Performed By: #### 2 4321-2 ####[facility] HOSPITALIA [id number] [place] [address] [place] Glucose [Mass/Vol] 128 mg/dL High 74-99 [facility] Comment on above: Order Comment: Shira feldman Type: BLOOD SPECIMENOrdering Facility: [facility] Address: [address] [address] Result Comment: The [place] Diabetes Association (ADA) provides guidance for cutoff [...] Standards of Medical Care in Diabetes 2016, [place] [employer]. Diabetes Care. 2016.39(Suppl 1). Performed By: #### 2 4321-2 ####[facility] LABORATORYCLIA [id number] [place] [address] [place] Potassium [Moles/Vol] 3.7 mmol/L Normal 3.7-5.1 [facility] Comment on above: Order Comment: Shira feldman Type: BLOOD SPECIMENOrdering Facility: [facility] Address: [address] [phone] Performed By: #### 2 4321-2 ####[facility] LABORATORYCLIA [id number] [place] [id number] [place] Sodium [Moles/Vol] 145 mmol/L High 136-144 [facility] Comment on above: Order Comment: Speci men Type: BLOOD SPECIMENOrdering Facility: [facility] Address: [address] [place] [address] Performed By: #### 2 4321-2 ####[facility] LABORATORYCLIA [id number] [place] [address] [place] Urea nitrogen [Mass/Vol] 39 mg/dL High 9-24 [facility] Comment on above: Order Comment: Speci men Type: BLOOD SPECIMENOrdering Facility: [facility] Address: [address] [place] [address] Performed By: #### 2 4321-2 ####[facility] LABORATORYCLIA [id number] [address] [place] CASE MANAGEMon 07-22-2021 CASE MANAGEM Normal [facility] CBC W Auto Differential pane l (Bld)on 07-22-2021 Basophils (Bld) [#/Vol] 0.06 10*3/uL Normal <0.11 [facility] Comment on above: Order Comment: Speci men Type: BLOOD SPECIMENOrdering Facility: [facility] Address: [address] [place] [address] Performed By: #### 5 7021-8 ####[facility] LABORATORYCLIA [id number] [address] [place] Basophils/100 WBC (Bld) 0.5 % Normal [facility] Comment on above: Order Comment: Speci men Type: BLOOD SPECIMENOrdering Facility: [facility] Address: [address] [place] [address] Performed By: #### 5 7021-8 ####[facility] LABORATORYCLIA [id number] [address] [place] Differential cell count method Nom (Bld) Auto Normal [facility] Comment on above: Order Comment: Speci men Type: BLOOD SPECIMENOrdering Facility: [facility] Address: [address] [place] [address] Performed By: #### 5 7021-8 ####[facility] LABORATORYCLIA [id number] [address] [place] Eosinophils (Bld) [#/Vol] 0.44 10*3/uL Normal <0.46 [facility] Comment on above: Order Comment: Speci men Type: BLOOD SPECIMENOrdering Facility: [facility] Address: [address] [place] [address] Performed By: #### 5 7021-8 ####[facility] LABORATORYCLIA [id number] [address] Eosinophils/100 WBC (Bld) 3.9 % Normal [facility] Comment on above: Order Comment: Speci men Type: BLOOD SPECIMENOrdering Facility: [facility] Address: [address] [place] [address] Performed By: #### 5 7021-8 ####[facility] LABORATORYCLIA [id number] [address] STATES [facility] Erythrocyte distribution width (RBC) [Ratio] 17.0 % High 11.5-15.0 [facility] Comment on above: Order Comment: Speci men Type: BLOOD SPECIMENOrdering Facility: [facility] Address: [address] [place] [address] Performed By: #### 5 7021-8 ####[facility] LABORATORYCLIA [id number] [address] [place] Hematocrit (Bld) [Volume fraction] 32.0 % Low 39.0-51.0 [facility] Comment on above: Order Comment: Speci men Type: BLOOD SPECIMENOrdering Facility: [facility] Address: [address] [place] [address] Performed By: #### 5 7021-8 ####[facility] LABORATORYCLIA [id number] [address] [place] Hemoglobin (Bld) [Mass/Vol] 9.3 g/dL Low 13.0-17.0 [facility] Comment on above: Order Comment: Speci men Type: BLOOD SPECIMENOrdering Facility: [facility] Address: [address] [place] [address] Performed By: #### 5 7021-8 ####[facility] LABORATORYCLIA [id number] [address] IMMATURE GRAN % 0.5 % Normal [facility] Comment on above: Order Comment: Speci men Type: BLOOD SPECIMENOrdering Facility: [facility] Address: [address] [place] [address] Performed By: #### 5 7021-8 ####[facility] LABORATORYCLIA [id number] [address] IMMATURE GRAN ABS 0.06 k/uL Normal <0.10 [facility] Comment on above: Order Comment: Speci men Type: BLOOD SPECIMENOrdering Facility: [facility] Address: [address] [place] [address] Performed By: #### 5 7021-8 ####[facility] LABORATORYCLIA [id number] [address] STATES [facility] Lymphocytes (Bld) [#/Vol] 1.83 10*3/uL Normal 1.00-4.00 [facility] Comment on above: Order Comment: Speci men Type: BLOOD SPECIMENOrdering Facility: [facility] Address: [address] [place] [address] Performed By: #### 5 7021-8 ####[facility] LABORATORYCLIA [id number] [address] Lymphocytes/100 WBC (Bld) 16.1 % Normal [facility] Comment on above: Order Comment: Speci men Type: BLOOD SPECIMENOrdering Facility: [facility] Address: [address] [place] [address] Performed By: #### 5 7021-8 ####[facility] LABORATORYCLIA [id number] [address] [place] MCH (RBC) [Entitic mass] 27.0 pg Normal 26.0-34.0 [facility] Comment on above: Order Comment: Speci men Type: BLOOD SPECIMENOrdering Facility: [facility] Address: [address] [place] [address] Performed By: #### 5 7021-8 ####[facility] LABORATORYCLIA [id number] [address] [place] MCHC (RBC) [Mass/Vol] 29.1 g/dL Low 30.5-36.0 [facility] Comment on above: Order Comment: Speci men Type: BLOOD SPECIMENOrdering Facility: [facility] Address: [address] [place] [address] Performed By: #### 5 7021-8 ####[facility] LABORATORYCLIA [id number] [address] [place] MCV (RBC) [Entitic vol] 92.8 fL Normal 80.0-100.0 [facility] Comment on above: Order Comment: Speci men Type: BLOOD SPECIMENOrdering Facility: [facility] Address: [address] [place] [address] Performed By: #### 5 7021-8 ####[facility] LABORATORYCLIA [id number] [address] [place] Monocytes (Bld) [#/Vol] 0.87 10*3/uL High <0.87 [facility] Comment on above: Order Comment: Speci men Type: BLOOD SPECIMENOrdering Facility: [facility] Address: [address] [place] [address] Performed By: #### 5 7021-8 ####[facility] LABORATORYCLIA [id number] [address] Monocytes/100 WBC (Bld) 7.6 % Normal [facility] Comment on above: Order Comment: Speci men Type: BLOOD SPECIMENOrdering Facility: [facility] Address: [address] [place] [address] Performed By: #### 5 7021-8 ####[facility] LABORATORYCLIA [id number] [address] [place] Neutrophils (Bld) [#/Vol] 8.12 10*3/uL High 1.45-7.50 [facility] Comment on above: Order Comment: Speci men Type: BLOOD SPECIMENOrdering Facility: [facility] Address: [address] [place] [address] Performed By: #### 5 7021-8 ####[facility] LABORATORYCLIA [id number] [address] STATES [facility] Neutrophils/100 WBC (Bld) 71.4 % Normal [facility] Comment on above: Order Comment: Speci men Type: BLOOD SPECIMENOrdering Facility: [facility] Address: [address] [place] [address] Performed By: #### 5 7021-8 ####[facility] LABORATORYCLIA [id number] [address] Nucleated RBC (Bld) [#/Vol] 10*3/uL Normal <0.01 [facility] Comment on above: Order Comment: Speci men Type: BLOOD SPECIMENOrdering Facility: [facility] Address: [address] [place] [address] Performed By: #### 5 7021-8 ####[facility] LABORATORYCLIA [id number] [address] Nucleated RBC/100 WBC (Bld) [Ratio] 0.0 /100 WBC Normal [facility] Comment on above: Order Comment: Speci men Type: BLOOD SPECIMENOrdering Facility: [facility] Address: [address] [place] [address] Performed By: #### 5 7021-8 ####[facility] LABORATORYCLIA [id number] [address] Platelet mean volume (Bld) [Entitic vol] 10.8 fL Normal 9.0-12.7 [facility] Comment on above: Order Comment: Speci men Type: BLOOD SPECIMENOrdering Facility: [facility] Address: [address] [place] [address] Performed By: #### 5 7021-8 ####[facility] LABORATORYCLIA [id number] [address] Platelets (Bld) [#/Vol] 362 10*3/uL Normal 150-400 [facility] Comment on above: Order Comment: Speci men Type: BLOOD SPECIMENOrdering Facility: [facility] Address: [address] [place] [address] Performed By: #### 5 7021-8 ####[facility] LABORATORYCLIA [id number] [address] [place] RBC (Bld) [#/Vol] 3.45 10*6/uL Low 4.20-6.00 [facility] Comment on above: Order Comment: Speci men Type: BLOOD SPECIMENOrdering Facility: [facility] Address: [address] [place] [address] Performed By: #### 5 7021-8 ####[facility] LABORATORYCLIA [id number] [address] [place] WBC (Bld) [#/Vol] 11.38 10*3/uL High 3.70-11.00 [facility] Comment on above: Order Comment: Speci men Type: BLOOD SPECIMENOrdering Facility: [facility] Address: [address] [place] [address] Performed By: #### 5 7021-8 ####[facility] LABORATORYCLIA [id number] [address] [place] Magnesium SerPl-mCncon 07-22 Magnesium [Mass/Vol] 2.3 mg/dL Normal 1.7-2.3 [facility] Comment on above: Order Comment: Speci men Type: BLOOD SPECIMENOrdering Facility: [facility] Address: [address] [place] [address] Performed By: #### 1 9123-9, 2777-1, 50323-6 ####[facility] LABORATORYCLIA [id number] [address] NT-proBNP SerPl[facility] Natriuretic peptide.B prohormone N-Terminal [Mass/Vol] 328 pg/mL High <125 [facility] Comment on above: Order Comment: Speci men Type: BLOOD SPECIMENOrdering Facility: [facility] Address: [address] [place] [address] Performed By: #### 1 9123-9, 2777-1, 37231-2 ####[facility] LABORATORYCLIA [id number] [address] [place] NURSING PROGon 07-22-2021 NURSING PROG Normal [facility] NUTRITIONon 07-22-2021 NUTRITION Normal [facility] Phosphate SerPl[facility] Phosphate [Mass/Vol] 3.5 mg/dL Normal 2.7-4.8 [facility] Comment on above: Order Comment: Speci men Type: BLOOD SPECIMENOrdering Facility: [facility] Address: [address] [place] [address] Performed By: #### 1 9123-9, 2777-, 11976-6 ####[facility] LABORATORYCLIA [id number] [address] [place] THERAPY NTon 07-22-2021 THERAPY NT Normal [facility] THERAPY NT Normal [facility] aPTT PPPon 07-22-2021 aPTT Coag (PPP) [Time] 50.1 s High 23.0-32.4 [facility] Comment on above: Order Comment: Speci men Type: BLOOD SPECIMENOrdering Facility: [facility] Address: [address] [place] [address] Performed By: #### 1 4979-9 ####[facility] LABORATORYCLIA [id number] [place] [address] [place] ALLIED HEALTHon 07-21-2021 ALLIED HEALTH Normal [facility] Bacteria Spec Resp Culton Bacteria identified Respiratory culture Nom (Unsp spec) Abnormal [facility] Comment on above: Performed By: #### 3 2355-0 ####[facility] LABORATORYCLIA [id number] [place] [address] [place] Basic metabolic 2000 panelon 07-21-2021 Anion gap [Moles/Vol] 9 mmol/L Normal 9-18 [facility] Comment on above: Order Comment: Speci men Type: BLOOD SPECIMENOrdering Facility: [facility] Address: [address] [place] [address] Performed By: #### 1 9123-9, 277-1, 00587-8 ####[facility] LABORATORYCLIA [id number] [place] [address] [place] Calcium [Mass/Vol] 9.9 mg/dL Normal 8.5-10.2 [facility] Comment on above: Order Comment: Speci men Type: BLOOD SPECIMENOrdering Facility: [facility] Address: [address] [place] [address] Performed By: #### 1 9123-9, 277-1, 14117-6 ####[facility] LABORATORYCLIA [id number] [place] [address] [place] Chloride [Moles/Vol] 103 mmol/L Normal 97-105 [facility] Comment on above: Order Comment: Speci men Type: BLOOD SPECIMENOrdering Facility: [facility] Address: [address] [address] Performed By: #### 1 9123-9, 2771, 10038-7 ####[facility] LABORATORYCLIA [id number] [place] [address] [place] CO2 [Moles/Vol] 33 mmol/L High 22-30 [facility] Comment on above: Order Comment: Speci men Type: BLOOD SPECIMENOrdering Facility: [facility] Address: [address] [address] Performed By: #### 1 9123-9, 277-1, 23310-2 ####[facility] HOSPITALIA [id number] [place] [address] [place] Creatinine [Mass/Vol] 0.80 mg/dL Normal 0.73-1.22 [facility] Comment on above: Order Comment: Shira feldman Type: BLOOD SPECIMENOrdering Facility: [facility] Address: [address] [phone] Performed By: #### 1 9123-9, 27711-04, 95117-8 ####[facility] HOSPITALIA [id number] [address] [place] [id number] [place] ESTIMATED GLOMERULAR FILTRATION RATE 96 mL/min/1.73m??? Normal >=60 [facility] Comment on above: Order Comment: Shira feldman Type: BLOOD SPECIMENOrdering Facility: [facility] Address: [address] [address] Result Comment: Luzmaria mated Glomerular Filtration Rate [...] GFR. Performed By: #### 1 9123-9, 2777-, 75144-6 ####[facility]OSPITALIA [id number] [address] [id number] [place] Glucose [Mass/Vol] 148 mg/dL High 74-99 [facility] Comment on above: Order Comment: Shira francia Type: BLOOD SPECIMENOrdering Facility: [facility] Address: [address] [phone] Result Comment: The [place] [employer] (ADA) provides guidance for cutoff [...] Standards of Medical Care in Diabetes 2016, [place] [employer]. Diabetes Care. 2016.39(Suppl 1). Performed By: #### 1 9123-9, 2777-1, 71642-7 ####[facility] LABORATORYCLIA [id number] [address] STATES [facility] Potassium [Moles/Vol] 4.1 mmol/L Normal 3.7-5.1 [facility] Comment on above: Order Comment: Speci men Type: BLOOD SPECIMENOrdering Facility: [facility] Address: [address] [place] [address] Performed By: #### 1 9123-9, 2777-, 24632-6 ####[facility] SERVICESCLIA [id number] [address] Sodium [Moles/Vol] 145 mmol/L High 136-144 [facility] Comment on above: Order Comment: Speci francia Type: BLOOD SPECIMENOrdering Facility: [facility] Address: [address] [place] [address] Performed By: #### 1 9123-9, 2777-, 17321-6 ####[facility] LABORATORYCLIA [id number] [address] STATES [facility] Urea nitrogen [Mass/Vol] 40 mg/dL High 9-24 [facility] Comment on above: Order Comment: Speci men Type: BLOOD SPECIMENOrdering Facility: [facility] Address: [facility] [address] Performed By: #### 1 9123-9, 2777-, 14643-6 ####[facility] LABORATORYCLIA [id number] [address] [place] CBC W Auto Differential pane l (Bld)on 07-21-2021 Basophils (Bld) [#/Vol] 0.06 10*3/uL Normal <0.11 [facility] Comment on above: Order Comment: Speci men Type: BLOOD SPECIMENOrdering Facility: [facility] Address: [address] [place] [address] Performed By: #### 5 7021-8 ####[facility] LABORATORYCLIA [id number] [address] STATES [facility] Basophils/100 WBC (Bld) 0.4 % Normal [facility] Comment on above: Order Comment: Speci men Type: BLOOD SPECIMENOrdering Facility: [facility] Address: [address] [place] [address] Performed By: #### 5 7021-8 ####[facility]ORATORYCLIA [id number] [address] Differential cell count method Nom (Bld) Auto Normal [facility] Comment on above: Order Comment: Speci men Type: BLOOD SPECIMENOrdering Facility: [facility] Address: [address] [place] [address] Performed By: #### 5 7021-8 ####[facility] LABORATORYCLIA [id number] [address] Eosinophils (Bld) [#/Vol] 0.04 10*3/uL Normal <0.46 [facility] Comment on above: Order Comment: Speci men Type: BLOOD SPECIMENOrdering Facility: [facility] Address: [address] [place] [address] Performed By: #### 5 7021-8 ####[facility]ORATORYCLIA [id number] [address] Eosinophils/100 WBC (Bld) 0.3 % Normal [facility] Comment on above: Order Comment: Speci men Type: BLOOD SPECIMENOrdering Facility: [facility] Address: [address] [place] [address] Performed By: #### 5 7021-8 ####[facility]ORATORYCLIA [id number] [address] Erythrocyte distribution width (RBC) [Ratio] 17.0 % High 11.5-15.0 [facility] Comment on above: Order Comment: Speci men Type: BLOOD SPECIMENOrdering Facility: [facility] Address: [address] [place] [address] Performed By: #### 5 7021-8 ####[facility] LABORATORYCLIA [id number] [address] OF [facility] Hematocrit (Bld) [Volume fraction] 33.1 % Low 39.0-51.0 [facility] Comment on above: Order Comment: Speci men Type: BLOOD SPECIMENOrdering Facility: [facility] Address: [address] [place] [address] Performed By: #### 5 7021-8 ####[facility] LABORATORYCLIA [id number] [address] STATES [place] [facility] Hemoglobin (Bld) [Mass/Vol] 9.7 g/dL Low 13.0-17.0 [facility] Comment on above: Order Comment: Speci men Type: BLOOD SPECIMENOrdering Facility: [facility] Address: [address] [place] [address] Performed By: #### 5 7021-8 ####[facility] LABORATORYCLIA [id number] [address] [place] IMMATURE GRAN % 0.5 % Normal [facility] Comment on above: Order Comment: Speci men Type: BLOOD SPECIMENOrdering Facility: [facility] Address: [address] [place] [address] Performed By: #### 5 7021-8 ####[facility] LABORATORYCLIA [id number] [address] IMMATURE GRAN ABS 0.07 k/uL Normal <0.10 [facility] Comment on above: Order Comment: Speci men Type: BLOOD SPECIMENOrdering Facility: [facility] Address: [address] [place] [address] Performed By: #### 5 7021-8 ####[facility]ORATORYCLIA [id number] [address] [place] Lymphocytes (Bld) [#/Vol] 1.99 10*3/uL Normal 1.00-4.00 [facility] Comment on above: Order Comment: Speci men Type: BLOOD SPECIMENOrdering Facility: [facility] Address: [address] [place] [address] Performed By: #### 5 7021-8 ####[facility] LABORATORYCLIA [id number] [address] Lymphocytes/100 WBC (Bld) 13.4 % Normal [facility] Comment on above: Order Comment: Speci men Type: BLOOD SPECIMENOrdering Facility: [facility] Address: [address] [place] [address] Performed By: #### 5 7021-8 ####[facility] LABORATORYCLIA [id number] [address] MCH (RBC) [Entitic mass] 27.2 pg Normal 26.0-34.0 [facility] Comment on above: Order Comment: Speci men Type: BLOOD SPECIMENOrdering Facility: [facility] Address: [address] [place] [address] Performed By: #### 5 7021-8 ####[facility] LABORATORYCLIA [id number] [address] [place] MCHC (RBC) [Mass/Vol] 29.3 g/dL Low 30.5-36.0 [facility] Comment on above: Order Comment: Speci men Type: BLOOD SPECIMENOrdering Facility: [facility] Address: [address] [place] [address] Performed By: #### 5 7021-8 ####[facility] LABORATORYCLIA [id number] [address] [facility] MCV (RBC) [Entitic vol] 92.7 fL Normal 80.0-100.0 [facility] Comment on above: Order Comment: Speci men Type: BLOOD SPECIMENOrdering Facility: [facility] Address: [address] [place] [address] Performed By: #### 5 7021-8 ####[facility]ORATORYCLIA [id number] [place] [address] [place] Monocytes (Bld) [#/Vol] 1.10 10*3/uL High <0.87 [facility] Comment on above: Order Comment: Speci men Type: BLOOD SPECIMENOrdering Facility: [facility] Address: [address] [place] [address] Performed By: #### 5 7021-8 ####[facility] LABORATORYCLIA [id number] [address] [place] Monocytes/100 WBC (Bld) 7.4 % Normal [facility] Comment on above: Order Comment: Speci men Type: BLOOD SPECIMENOrdering Facility: [facility] Address: [address] [place] [address] Performed By: #### 5 7021-8 ####[facility] LABORATORYCLIA [id number] [place] [address] [place] Neutrophils (Bld) [#/Vol] 11.61 10*3/uL High 1.45-7.50 [facility] Comment on above: Order Comment: Speci men Type: BLOOD SPECIMENOrdering Facility: [facility] Address: [address] [place] [address] Performed By: #### 5 7021-8 ####[facility] LABORATORYCLIA [id number] [address] [place] Neutrophils/100 WBC (Bld) 78.0 % Normal [facility] Comment on above: Order Comment: Speci men Type: BLOOD SPECIMENOrdering Facility: [facility] Address: [address] [place] [address] Performed By: #### 5 7021-8 ####[facility] LABORATORYCLIA [id number] [place] [address] [place] Nucleated RBC (Bld) [#/Vol] 10*3/uL Normal <0.01 [facility] Comment on above: Order Comment: Speci men Type: BLOOD SPECIMENOrdering Facility: [facility] Address: [address] [place] [address] Performed By: #### 5 7021-8 ####[facility] LABORATORYCLIA [id number] [address] OF [facility] Nucleated RBC/100 WBC (Bld) [Ratio] 0.0 /100 WBC Normal [facility] Comment on above: Order Comment: Speci men Type: BLOOD SPECIMENOrdering Facility: [facility] Address: [address] [place], [place] [address] Performed By: #### 5 7021-8 ####[facility] LABORATORYCLIA [id number] [address] [place] Platelet mean volume (Bld) [Entitic vol] 10.4 fL Normal 9.0-12.7 [facility] Comment on above: Order Comment: Speci men Type: BLOOD SPECIMENOrdering Facility: [facility] Address: [address] [place], [place] [address] Performed By: #### 5 7021-8 ####[facility] LABORATORYCLIA [id number] [address] [place] Platelets (Bld) [#/Vol] 396 10*3/uL Normal 150-400 [facility] Comment on above: Order Comment: Speci men Type: BLOOD SPECIMENOrdering Facility: [facility] Address: [address] [place], [place] [address] Performed By: #### 5 7021-8 ####[facility] LABORATORYCLIA [id number] [address] [place] RBC (Bld) [#/Vol] 3.57 10*6/uL Low 4.20-6.00 [facility] Comment on above: Order Comment: Speci men Type: BLOOD SPECIMENOrdering Facility: [facility] Address: [address] [place], [place] [address] Performed By: #### 5 7021-8 ####[facility] LABORATORYCLIA [id number] [place] [address] [place] WBC (Bld) [#/Vol] 14.87 10*3/uL High 3.70-11.00 [facility] Comment on above: Order Comment: Speci men Type: BLOOD SPECIMENOrdering Facility: [facility] Address: [address] [place] [address] Performed By: #### 5 7021-8 ####[facility] LABORATORYCLIA [id number] [address] [place] Gas and Carbon monoxide pane l (BldV)on 07-21-2021 Base excess Calc (BldV) [Moles/Vol] 7 mmol/L High 0-2 [facility] Comment on above: Order Comment: Speci men Type: VENOUS BLOOD SPECIMENOrdering Facility: [facility] Address: [address] [place] [address] Performed By: #### 2 4344-4 ####[facility] LABORATORYCLIA [id number] [address] [facility] Body temperature 98.6 [degF] Normal [facility] Comment on above: Order Comment: Speci men Type: VENOUS BLOOD SPECIMENOrdering Facility: [facility] Address: [address] [place] [address] Performed By: #### 2 4344-4 ####[facility] LABORATORYCLIA [id number] [address] [place] CALCIUM IONIZED, PH CORRECTED 1.21 mmol/L Normal 1.08-1.30 [facility] Comment on above: Order Comment: Speci men Type: VENOUS BLOOD SPECIMENOrdering Facility: [facility] Address: [address] [place] [address] Performed By: #### 2 4344-4 ####[facility] LABORATORYCLIA [id number] [address] [place] Calcium.ionized (BldV) [Mass/Vol] 1.23 mmol/L Normal 1.08-1.30 [facility] Comment on above: Order Comment: Speci men Type: VENOUS BLOOD SPECIMENOrdering Facility: [facility] Address: [address] [address] Performed By: #### 2 4344-4 ####[facility] LABORATORYCLIA [id number] [address] [place] Carboxyhemoglobin (BldV) [Mass fraction] 2.3 % High 0.0-2.0 [facility] Comment on above: Order Comment: Speci men Type: VENOUS BLOOD SPECIMENOrdering Facility: [facility] Address: [address] [place] [address] Result Comment: Carb oxyhemoglobin Reference Range for Smokers: 2.0-8.0% Performed By: #### 2 4344-4 ####[facility] LABORATORYCLIA [id number] [place] [address] [place] CO2 (BldV) [Partial pressure] 58 mm[Hg] High 42-55 [facility] Comment on above: Order Comment: Speci men Type: VENOUS BLOOD SPECIMENOrdering Facility: [facility] Address: [address] [place] [address] Performed By: #### 2 4344-4 ####[facility] LABORATORYCLIA [id number] [place] [address] [place] CO2 [Moles/Vol] 31 mmol/L High 25-29 [facility] Comment on above: Order Comment: Speci men Type: VENOUS BLOOD SPECIMENOrdering Facility: [facility] Address: [address] [address] Performed By: #### 2 4344-4 ####[facility] LABORATORYCLIA [id number] [address] [place] Glucose [Mass/Vol] 146 mg/dL High 60-105 [facility] Comment on above: Order Comment: Speci men Type: VENOUS BLOOD SPECIMENOrdering Facility: [facility] Address: [address] [address] Performed By: #### 2 4344-4 ####[facility]ORATORYCLIA [id number] [address] [place] HCO3 (Bld) [Moles/Vol] 33 mmol/L High 24-28 [facility] Comment on above: Order Comment: Speci men Type: VENOUS BLOOD SPECIMENOrdering Facility: [facility] Address: [address] [place] [address] Performed By: #### 2 4344-4 ####[facility] LABORATORYCLIA [id number] [address] [place] Hematocrit (Bld) [Volume fraction] 30.1 % Low 39.0-51.0 [facility] Comment on above: Order Comment: Speci men Type: VENOUS BLOOD SPECIMENOrdering Facility: [facility] Address: [address] [place] [address] Performed By: #### 2 4344-4 ####[facility] LABORATORYCLIA [id number] [address] [facility] Hemoglobin (Bld) [Mass/Vol] 9.7 g/dL Low 13.0-17.0 [facility] Comment on above: Order Comment: Speci men Type: VENOUS BLOOD SPECIMENOrdering Facility: [facility] Address: [address] [place] [address] Performed By: #### 2 4344-4 ####[facility] LABORATORYCLIA [id number] [address] Methemoglobin (Bld) [Mass fraction] % Normal 0.0-1.5 [facility] Comment on above: Order Comment: Speci men Type: VENOUS BLOOD SPECIMENOrdering Facility: [facility] Address: [address] [place] [address] Performed By: #### 2 4344-4 ####[facility] LABORATORYCLIA [id number] [address] [place] O2 THERAPY NC = Nasal Cannula Normal [facility] Comment on above: Order Comment: Speci men Type: VENOUS BLOOD SPECIMENOrdering Facility: [facility] Address: [address] [address] Performed By: #### 2 4344-4 ####[facility]ORATORYCLIA [id number] [address] [place] Oxygen (BldV) [Partial pressure] 64 mm[Hg] High 35-45 [facility] Comment on above: Order Comment: Speci men Type: VENOUS BLOOD SPECIMENOrdering Facility: [facility] Address: [address] [place] [address] Performed By: #### 2 4344-4 ####[facility] LABORATORYCLIA [id number] [address] Oxygen saturation in Blood 90 % High 60-85 [facility] Comment on above: Order Comment: Speci men Type: VENOUS BLOOD SPECIMENOrdering Facility: [facility] Address: [address] [place] [address] Performed By: #### 2 4344-4 ####[facility] LABORATORYCLIA [id number] [address] [place] Oxyhemoglobin (BldV) [Mass fraction] 87 % High 60-85 [facility] Comment on above: Order Comment: Speci men Type: VENOUS BLOOD SPECIMENOrdering Facility: [facility] Address: [address] [place] [address] Performed By: #### 2 4344-4 ####[facility] LABORATORYCLIA [id number] [address] [place] pH (BldV) 7.38 [pH] Normal 7.32-7.42 [facility] Comment on above: Order Comment: Speci men Type: VENOUS BLOOD SPECIMENOrdering Facility: [facility] Address: [address] [place] [address] Performed By: #### 2 4344-4 ####[facility]ORATORYCLIA [id number] [address] [place] Potassium [Moles/Vol] 3.8 mmol/L Normal 3.5-5.0 [facility] Comment on above: Order Comment: Speci men Type: VENOUS BLOOD SPECIMENOrdering Facility: [facility] Address: [address] [place] [address] Performed By: #### 2 4344-4 ####[facility] LABORATORYCLIA [id number] [address] [place] Sodium [Moles/Vol] 145 mmol/L High 136-144 [facility] Comment on above: Order Comment: Speci men Type: VENOUS BLOOD SPECIMENOrdering Facility: [facility] Address: [address] [place] [address] Performed By: #### 2 4344-4 ####[facility] LABORATORYCLIA [id number] [address] [place] Base excess Calc (BldV) [Moles/Vol] 8 mmol/L High 0-2 [facility] Comment on above: Order Comment: Speci men Type: VENOUS BLOOD SPECIMENOrdering Facility: [facility] Address: [address] [place] [address] Performed By: #### 2 4344-4 ####[facility] LABORATORYCLIA [id number] [address] [place] Body temperature 100.22 [degF] Normal [facility] Comment on above: Order Comment: Speci men Type: VENOUS BLOOD SPECIMENOrdering Facility: [facility] Address: [address] [place] [address] Performed By: #### 2 4344-4 ####[facility] LABORATORYCLIA [id number] [address] [place] CALCIUM IONIZED, PH CORRECTED 1.25 mmol/L Normal 1.08-1.30 [facility] Comment on above: Order Comment: Speci men Type: VENOUS BLOOD SPECIMENOrdering Facility: [facility] Address: [address] [place] [address] Performed By: #### 2 4344-4 ####[facility] LABORATORYCLIA [id number] [address] [place] Calcium.ionized (BldV) [Mass/Vol] 1.24 mmol/L Normal 1.08-1.30 [facility] Comment on above: Order Comment: Speci men Type: VENOUS BLOOD SPECIMENOrdering Facility: [facility] Address: [address] [place] [address] Performed By: #### 2 4344-4 ####[facility] LABORATORYCLIA [id number] [address] [place] Carboxyhemoglobin (BldV) [Mass fraction] 2.5 % High 0.0-2.0 [facility] Comment on above: Order Comment: Speci men Type: VENOUS BLOOD SPECIMENOrdering Facility: [facility] Address: [address] [place] [address] Result Comment: Carb oxyhemoglobin Reference Range for Smokers: 2.0-8.0% Performed By: #### 2 4344-4 ####[facility] LABORATORYCLIA [id number] [address] [place] CO2 (BldV) [Partial pressure] 53 mm[Hg] Normal 42-55 [facility] Comment on above: Order Comment: Speci men Type: VENOUS BLOOD SPECIMENOrdering Facility: [facility] Address: [address] [place] [address] Performed By: #### 2 4344-4 ####[facility] LABORATORYCLIA [id number] [address] [place] CO2 [Moles/Vol] 31 mmol/L High 25-29 [facility] Comment on above: Order Comment: Speci men Type: VENOUS BLOOD SPECIMENOrdering Facility: [facility] Address: [address] [place] [address] Performed By: #### 2 4344-4 ####[facility] LABORATORYCLIA [id number] [address] [place] CO2 adjusted to patient's actual temperature (BldV) [Partial pressure] 56 mmHg High 42-55 [facility] Comment on above: Order Comment: Speci men Type: VENOUS BLOOD SPECIMENOrdering Facility: [facility] Address: [address] [address] Performed By: #### 2 4344-4 ####[facility] LABORATORYCLIA [id number] [address] [place] Glucose [Mass/Vol] 131 mg/dL High 60-105 [facility] Comment on above: Order Comment: Speci men Type: VENOUS BLOOD SPECIMENOrdering Facility: [facility] Address: [address] [place] [address] Performed By: #### 2 4344-4 ####[facility] LABORATORYCLIA [id number] [address] [place] HCO3 (Bld) [Moles/Vol] 33 mmol/L High 24-28 [facility] Comment on above: Order Comment: Speci men Type: VENOUS BLOOD SPECIMENOrdering Facility: [facility] Address: [address] [place] [address] Performed By: #### 2 4344-4 ####[facility] LABORATORYCLIA [id number] [address] [place] Hematocrit (Bld) [Volume fraction] 30.8 % Low 39.0-51.0 [facility] Comment on above: Order Comment: Speci men Type: VENOUS BLOOD SPECIMENOrdering Facility: [facility] Address: [address] [address] Performed By: #### 2 4344-4 ####[facility] LABORATORYCLIA [id number] [address] [place] Hemoglobin (Bld) [Mass/Vol] 10.0 g/dL Low 13.0-17.0 [facility] Comment on above: Order Comment: Speci men Type: VENOUS BLOOD SPECIMENOrdering Facility: [facility] Address: [address] [address] Performed By: #### 2 4344-4 ####[facility] LABORATORYCLIA [id number] [place] [address] [place] Methemoglobin (Bld) [Mass fraction] % Normal 0.0-1.5 [facility] Comment on above: Order Comment: Speci men Type: VENOUS BLOOD SPECIMENOrdering Facility: [facility] Address: [address] [place] [address] Performed By: #### 2 4344-4 ####[facility]ORATORYCLIA [id number] [address] O2 THERAPY NC = Nasal Cannula Normal [facility] Comment on above: Order Comment: Speci men Type: VENOUS BLOOD SPECIMENOrdering Facility: [facility] Address: [address] [place] [address] Performed By: #### 2 4344-4 ####[facility] LABORATORYCLIA [id number] [address] Oxygen (BldV) [Partial pressure] 58 mm[Hg] High 35-45 [facility] Comment on above: Order Comment: Speci men Type: VENOUS BLOOD SPECIMENOrdering Facility: [facility] Address: [address] [place] [address] Performed By: #### 2 4344-4 ####[facility]ORATORYCLIA [id number] [address] Oxygen adjusted to patient's actual temperature (BldV) [Partial pressure] 61 mmHg High 35-45 [facility] Comment on above: Order Comment: Speci men Type: VENOUS BLOOD SPECIMENOrdering Facility: [facility] Address: [address] [place] [address] Performed By: #### 2 4344-4 ####[facility]ORATORYCLIA [id number] [address] Oxygen saturation in Blood 88 % High 60-85 [facility] Comment on above: Order Comment: Speci men Type: VENOUS BLOOD SPECIMENOrdering Facility: [facility] Address: [address] [place] [address] Performed By: #### 2 4344-4 ####[facility]ORATORYCLIA [id number] [address] [place] Oxyhemoglobin (BldV) [Mass fraction] 85 % Normal 60-85 [facility] Comment on above: Order Comment: Speci men Type: VENOUS BLOOD SPECIMENOrdering Facility: [facility] Address: [address] [place] [address] Performed By: #### 2 4344-4 ####[facility] LABORATORYCLIA [id number] [address] [place] pH (BldV) 7.41 [pH] Normal 7.32-7.42 [facility] Comment on above: Order Comment: Speci men Type: VENOUS BLOOD SPECIMENOrdering Facility: [facility] Address: [address] [place] [address] Performed By: #### 2 4344-4 ####[facility] LABORATORYCLIA [id number] [address] pH adjusted to patient's actual temperature (BldV) 7.40 Normal 7.32-7.42 [facility] Comment on above: Order Comment: Speci men Type: VENOUS BLOOD SPECIMENOrdering Facility: [facility] Address: [address] [place] [address] Performed By: #### 2 4344-4 ####[facility] LABORATORYCLIA [id number] [place] [address] [place] Potassium [Moles/Vol] 4.0 mmol/L Normal 3.5-5.0 [facility] Comment on above: Order Comment: Speci men Type: VENOUS BLOOD SPECIMENOrdering Facility: [facility] Address: [address] [place] [address] Performed By: #### 2 4344-4 ####[facility] LABORATORYCLIA [id number] [address] [place] Sodium [Moles/Vol] 146 mmol/L High 136-144 [facility] Comment on above: Order Comment: Speci men Type: VENOUS BLOOD SPECIMENOrdering Facility: [facility] Address: [address] [place] [address] Performed By: #### 2 4344-4 ####[facility] LABORATORYCLIA [id number] [address] Magnesium SerPl-ncon 07-21 Magnesium [Mass/Vol] 2.5 mg/dL High 1.7-2.3 [facility] Comment on above: Order Comment: Speci men Type: BLOOD SPECIMENOrdering Facility: [facility] Address: [address] [place] [address] Performed By: #### 1 9123-9, 2777-1, 34326-9 ####[facility] LABORATORYCLIA [id number] [address] NURSING PROGon 07-21-2021 NURSING PROG Normal [facility] Phosphate SerPl-ncon 07-21 Phosphate [Mass/Vol] 3.7 mg/dL Normal 2.7-4.8 [facility] Comment on above: Order Comment: Speci men Type: BLOOD SPECIMENOrdering Facility: [facility] Address: [address] [place] [address] Performed By: #### 1 9123-9, 2777-1, 08612-4 ####[facility] LABORATORYCLIA [id number] [address] THERAPY NTon 07-21-2021 THERAPY NT Normal [facility] XR CHEST 1V FRONTALon 2021 XR CHEST 1V FRONTAL Normal [facility] aPTT PPPon 07-21-2021 aPTT Coag (PPP) [Time] 53.0 s High 23.0-32.4 [facility] Comment on above: Order Comment: Speci men Type: BLOOD SPECIMENOrdering Facility: [facility] Address: [address] [place] [address] Performed By: #### 1 4979-9 ####[facility] LABORATORYCLIA [id number] [address] [place] ALLIED HEALTHon 07-20-2021 ALLIED HEALTH Normal [facility] Basic metabolic 2000 panelon 07-20-2021 Anion gap [Moles/Vol] 8 mmol/L Low 9-18 [facility] Comment on above: Order Comment: Speci men Type: BLOOD SPECIMENOrdering Facility: [facility] Address: [address] [place] [address] Performed By: #### 2 4321-2, , 2776-05 ####[facility] LABORATORYCLIA [id number] [place] [id number] [place] Calcium [Mass/Vol] 9.7 mg/dL Normal 8.5-10.2 [facility] Comment on above: Order Comment: Speci men Type: BLOOD SPECIMENOrdering Facility: [facility] Address: [address] [place] [address] Performed By: #### 2 4321-2, , 2776-05 ####[facility] LABORATORYCLIA [id number] [place] [address] [place] Chloride [Moles/Vol] 104 mmol/L Normal 97-105 [facility] Comment on above: Order Comment: Speci men Type: BLOOD SPECIMENOrdering Facility: [facility] Address: [address] [place] [address] Performed By: #### 2 4321-2, , 2776-05 ####[facility] LABORATORYCLIA [id number] [place] [address] [place] CO2 [Moles/Vol] 34 mmol/L High 22-30 [facility] Comment on above: Order Comment: Speci men Type: BLOOD SPECIMENOrdering Facility: [facility] Address: [address] [place] [address] Performed By: #### 2 4321-2, , 2776-05 ####[facility] LABORATORYCLIA [id number] [place] [address] [place] Creatinine [Mass/Vol] 0.76 mg/dL Normal 0.73-1.22 [facility] Comment on above: Order Comment: Johncara feldman Type: BLOOD SPECIMENOrdering Facility: [facility] Address: [address] [facility] [place] [id number] Performed By: #### 2 4321-2, 77846-8, 2776-05 ####[facility] LABORATORYCLIA [id number] [place] [id number] [place] ESTIMATED GLOMERULAR FILTRATION RATE 97 mL/min/1.73m??? Normal >=60 [facility] Comment on above: Order Comment: Shira feldman Type: BLOOD SPECIMENOrdering Facility: [facility] Address: [address] [id number] Result Comment: Luzmaria mated Glomerular Filtration Rate [...] Performed By: #### 2 4321-2, , 2776-05 ####[facility] LABORATORYCLIA [id number] [place] [address] [place] Glucose [Mass/Vol] 123 mg/dL High 74-99 [facility] Comment on above: Order Comment: Shira feldman Type: BLOOD SPECIMENOrdering Facility: [facility] Address: [address] Result Comment: The [place] [employer] (ADA) provides guidance for cutoff [...] Standards of Medical Care in Diabetes 2016, [place] [employer]. Diabetes Care. 2016.39(Suppl 1). Performed By: #### 2 4321-2, 23818-0, 2776- ####[facility] LABORATORYCLIA [id number] [place] [address] [place] Potassium [Moles/Vol] 4.4 mmol/L Normal 3.7-5.1 [facility] Comment on above: Order Comment: Speci men Type: BLOOD SPECIMENOrdering Facility: [facility] Address: [address] [place] [address] Performed By: #### 2 4321-2, , 2776- ####[facility] LABORATORYCLIA [id number] [address] [facility] Sodium [Moles/Vol] 146 mmol/L High 136-144 [facility] Comment on above: Order Comment: Speci men Type: BLOOD SPECIMENOrdering Facility: [facility] Address: [address] [place] [address] Performed By: #### 2 4321-2, , 27711-04 ####[facility] LABORATORYCLIA [id number] [address] [place] Urea nitrogen [Mass/Vol] 38 mg/dL High 9-24 [facility] Comment on above: Order Comment: Speci men Type: BLOOD SPECIMENOrdering Facility: [facility] Address: [address] [place] [address] Performed By: #### 2 4321-2, , 2777 ####[facility] LABORATORYCLIA [id number] [place] [id number] [place] CASE MANAGEMon 07-20-2021 CASE MANAGEM Normal [facility] CBC W Auto Differential pane l (Bld)on 07-20-2021 Basophils (Bld) [#/Vol] 0.05 10*3/uL Normal <0.11 [facility] Comment on above: Order Comment: Speci men Type: BLOOD SPECIMENOrdering Facility: [facility] Address: [address] [address] Performed By: #### 5 7021-8 ####[facility]ORATORYCLIA [id number] [address] Basophils/100 WBC (Bld) 0.5 % Normal [facility] Comment on above: Order Comment: Speci men Type: BLOOD SPECIMENOrdering Facility: [facility] Address: [address] [place] [address] Performed By: #### 5 7021-8 ####[facility] LABORATORYCLIA [id number] [address] [place] Differential cell count method Nom (Bld) Auto Normal [facility] Comment on above: Order Comment: Speci men Type: BLOOD SPECIMENOrdering Facility: [facility] Address: [address] [place] [address] Performed By: #### 5 7021-8 ####[facility] LABORATORYCLIA [id number] [address] [place] Eosinophils (Bld) [#/Vol] 0.43 10*3/uL Normal <0.46 [facility] Comment on above: Order Comment: Speci men Type: BLOOD SPECIMENOrdering Facility: [facility] Address: [address] [place] [address] Performed By: #### 5 7021-8 ####[facility] LABORATORYCLIA [id number] [address] [place] Eosinophils/100 WBC (Bld) 4.1 % Normal [facility] Comment on above: Order Comment: Speci men Type: BLOOD SPECIMENOrdering Facility: [facility] Address: [address] [place] [address] Performed By: #### 5 7021-8 ####[facility]ORATORYCLIA [id number] [address] [place] Erythrocyte distribution width (RBC) [Ratio] 16.7 % High 11.5-15.0 [facility] Comment on above: Order Comment: Speci men Type: BLOOD SPECIMENOrdering Facility: [facility] Address: [address] [place] [address] Performed By: #### 5 7021-8 ####[facility] LABORATORYCLIA [id number] [address] Hematocrit (Bld) [Volume fraction] 33.0 % Low 39.0-51.0 [facility] Comment on above: Order Comment: Speci men Type: BLOOD SPECIMENOrdering Facility: [facility] Address: [address] [place] [address] Performed By: #### 5 7021-8 ####[facility] LABORATORYCLIA [id number] [address] Hemoglobin (Bld) [Mass/Vol] 9.7 g/dL Low 13.0-17.0 [facility] Comment on above: Order Comment: Speci men Type: BLOOD SPECIMENOrdering Facility: [facility] Address: [address] [place] [address] Performed By: #### 5 7021-8 ####[facility] LABORATORYCLIA [id number] [address] IMMATURE GRAN % 0.4 % Normal [facility] Comment on above: Order Comment: Speci men Type: BLOOD SPECIMENOrdering Facility: [facility] Address: [address] [place] [address] Performed By: #### 5 7021-8 ####[facility] LABORATORYCLIA [id number] [address] IMMATURE GRAN ABS 0.04 k/uL Normal <0.10 [facility] Comment on above: Order Comment: Speci men Type: BLOOD SPECIMENOrdering Facility: [facility] Address: [address] [place] [address] Performed By: #### 5 7021-8 ####[facility] LABORATORYCLIA [id number] [address] Lymphocytes (Bld) [#/Vol] 1.99 10*3/uL Normal 1.00-4.00 [facility] Comment on above: Order Comment: Speci men Type: BLOOD SPECIMENOrdering Facility: [facility] Address: [address] [place] [address] Performed By: #### 5 7021-8 ####[facility] LABORATORYCLIA [id number] [address] Lymphocytes/100 WBC (Bld) 18.8 % Normal [facility] Comment on above: Order Comment: Speci men Type: BLOOD SPECIMENOrdering Facility: [facility] Address: [address] [place] [address] Performed By: #### 5 7021-8 ####[facility] LABORATORYCLIA [id number] [address] [place] MCH (RBC) [Entitic mass] 27.8 pg Normal 26.0-34.0 [facility] Comment on above: Order Comment: Speci men Type: BLOOD SPECIMENOrdering Facility: [facility] Address: [address] [place] [address] Performed By: #### 5 7021-8 ####[facility] LABORATORYCLIA [id number] [address] STATES OF [facility] MCHC (RBC) [Mass/Vol] 29.4 g/dL Low 30.5-36.0 [facility] Comment on above: Order Comment: Speci men Type: BLOOD SPECIMENOrdering Facility: [facility] Address: [address] [place] [address] Performed By: #### 5 7021-8 ####[facility] LABORATORYCLIA [id number] [address] [place] MCV (RBC) [Entitic vol] 94.6 fL Normal 80.0-100.0 [facility] Comment on above: Order Comment: Speci men Type: BLOOD SPECIMENOrdering Facility: [facility] Address: [address] [place] [address] Performed By: #### 5 7021-8 ####[facility]ORATORYCLIA [id number] [place] [address] [place] Monocytes (Bld) [#/Vol] 0.82 10*3/uL Normal <0.87 [facility] Comment on above: Order Comment: Speci men Type: BLOOD SPECIMENOrdering Facility: [facility] Address: [address] [place] [address] Performed By: #### 5 7021-8 ####[facility]ORATORYCLIA [id number] [address] [place] Monocytes/100 WBC (Bld) 7.8 % Normal [facility] Comment on above: Order Comment: Speci men Type: BLOOD SPECIMENOrdering Facility: [facility] Address: [address] [place] [address] Performed By: #### 5 7021-8 ####[facility] LABORATORYCLIA [id number] [address] [place] Neutrophils (Bld) [#/Vol] 7.23 10*3/uL Normal 1.45-7.50 [facility] Comment on above: Order Comment: Speci men Type: BLOOD SPECIMENOrdering Facility: [facility] Address: [address] [place] [address] Performed By: #### 5 7021-8 ####[facility] LABORATORYCLIA [id number] [address] [place] Neutrophils/100 WBC (Bld) 68.4 % Normal [facility] Comment on above: Order Comment: Speci men Type: BLOOD SPECIMENOrdering Facility: [facility] Address: [address] [place] [address] Performed By: #### 5 7021-8 ####[facility]ORATORYCLIA [id number] [place] [address] [place] Nucleated RBC (Bld) [#/Vol] 10*3/uL Normal <0.01 [facility] Comment on above: Order Comment: Speci men Type: BLOOD SPECIMENOrdering Facility: [facility] Address: [address] [place] [address] Performed By: #### 5 7021-8 ####[facility] LABORATORYCLIA [id number] [address] [place] Nucleated RBC/100 WBC (Bld) [Ratio] 0.0 /100 WBC Normal [facility] Comment on above: Order Comment: Speci men Type: BLOOD SPECIMENOrdering Facility: [facility] Address: [address] [place] [address] Performed By: #### 5 7021-8 ####[facility] LABORATORYCLIA [id number] [address] [place] Platelet mean volume (Bld) [Entitic vol] 10.5 fL Normal 9.0-12.7 [facility] Comment on above: Order Comment: Speci men Type: BLOOD SPECIMENOrdering Facility: [facility] Address: [address] [place] [address] Performed By: #### 5 7021-8 ####[facility] LABORATORYCLIA [id number] [address] [place] Platelets (Bld) [#/Vol] 400 10*3/uL Normal 150-400 [facility] Comment on above: Order Comment: Speci men Type: BLOOD SPECIMENOrdering Facility: [facility] Address: [address] [place] [address] Performed By: #### 5 7021-8 ####[facility] LABORATORYCLIA [id number] [address] [place] RBC (Bld) [#/Vol] 3.49 10*6/uL Low 4.20-6.00 [facility] Comment on above: Order Comment: Speci men Type: BLOOD SPECIMENOrdering Facility: [facility] Address: [address] [place] [address] Performed By: #### 5 7021-8 ####[facility] LABORATORYCLIA [id number] [address] [place] WBC (Bld) [#/Vol] 10.56 10*3/uL Normal 3.70-11.00 [facility] Comment on above: Order Comment: Speci men Type: BLOOD SPECIMENOrdering Facility: [facility] Address: [address] [place], [place] [address] [address] Performed By: #### 5 7021-8 ####[facility] LABORATORYCLIA [id number] [address] OF [facility] CONSULT PROGon 07-20-2021 CONSULT PROG Normal [facility] CT BRAIN WO IVCONon 07-21-[address] BRAIN WO IVCON Normal [facility] Magnesium SerPl-mCncon 07-20 Magnesium [Mass/Vol] 2.4 mg/dL High 1.7-2.3 [facility] Comment on above: Order Comment: Speci men Type: BLOOD SPECIMENOrdering Facility: [facility] Address: [address] [place] [address] Performed By: #### 2 4321-2, 79047-8, 2777-1 ####[facility] LABORATORYCLIA [id number] [address] [place] NUTRITIONon 07-20-2021 NUTRITION Normal [facility] Phosphate SerPl-mCncon 07-20 Phosphate [Mass/Vol] 4.1 mg/dL Normal 2.7-4.8 [facility] Comment on above: Order Comment: Speci men Type: BLOOD SPECIMENOrdering Facility: [facility] Address: [address] [place], [place] [address] [address] Performed By: #### 2 4321-2, 80889-2, 2777-1 ####[facility] LABORATORYCLIA [id number] [address] [place] aPTT PPPon 07-20-2021 aPTT Coag (PPP) [Time] 53.6 s High 23.0-32.4 [facility] Comment on above: Order Comment: Speci men Type: BLOOD SPECIMENOrdering Facility: [facility] Address: [address] [place] [address] Performed By: #### 1 4979-9 ####[facility] LABORATORYCLIA [id number] [address] [place] Bacteria CSF Culton 07-20-19 22 Bacteria identified Cx Nom (CSF) CULTURE, CSF: No growth 14 days GRAM STAIN: No organisms seen No Polymorphonuclear Leukocytes Rare Mononuclear cells Gram stain performed on cytospun specimen. Normal [facility] Comment on above: Performed By: #### 6 06-4 ####[facility] LABORATORYCLIA [id number] [address] [place] CONSULT PROGon 07-19-2021 CONSULT PROG Normal [facility] CSF MANUAL DIFFon 07-19-2021 DIF TTL, CSF 100 cells counted Normal [facility] Comment on above: Order Comment: Speci men Type: CEREBROSPINAL FLUIDOrdering Facility: [facility] Address: [address] [place] [address] Performed By: #### L EL7697, 82690-8, [id number] ####[facility] LABORATORYCLIA [id number] [address] [place] EOSIN%, CSF 1 % Normal [facility] Comment on above: Order Comment: Speci men Type: CEREBROSPINAL FLUIDOrdering Facility: [facility] Address: [address] [place] [address] Performed By: #### L [id number], 22567-0, [id number] ####[facility]ORATORYCLIA [id number] [place] [address] [place] LYMPH%, CSF 67 % Normal 50-90 [facility] Comment on above: Order Comment: Speci men Type: CEREBROSPINAL FLUIDOrdering Facility: [facility] Address: [address] [place] [address] Performed By: #### L [id number], 06864-3, [id number] ####[facility]ATORYCLIA [id number] [place] [address] [place] MACRO%, CSF 1 % High <1 [facility] Comment on above: Order Comment: Speci men Type: CEREBROSPINAL FLUIDOrdering Facility: [facility] Address: [address] [place] [address] Performed By: #### L MA9715, 73925-7, [id number] ####[facility]ORATORYCLIA [id number] [place] [address] [place] MONO%, CSF 18 % Normal 10-50 [facility] Comment on above: Order Comment: Speci men Type: CEREBROSPINAL FLUIDOrdering Facility: [facility] Address: [address] [place] [address] Performed By: #### L [id number], 09906-5, [id number] ####[facility]ATORYCLIA [id number] [address] [place] NEUT%, CSF 11 % High 0-3 [facility] Comment on above: Order Comment: Speci men Type: CEREBROSPINAL FLUIDOrdering Facility: [facility] Address: [address] [place] [address] Performed By: #### L JQ1674, 95723-4, [id number] ####[facility]ATORYCLIA [id number] [address] OTHER CL%, CSF 2 % Normal [facility] Comment on above: Order Comment: Speci men Type: CEREBROSPINAL FLUIDOrdering Facility: [facility] Address: [address] [place] [address] Result Comment: Path review to follow. Performed By: #### L OX1530, 05567-2, [id number] ####[facility]ATORYCLIA [id number] [address] CSF PATHOLOGIST INTERP (LAB REFLEX ORDER-NO BILL)on 07-19-2021 CSF STAFF REVIEW Normal [facility] Comment on above: Order Comment: Speci men Type: CEREBROSPINAL FLUIDOrdering Facility: [facility] Address: [address] [place] [address] Performed By: #### L TO5736, 16841-6, [id number] ####[facility]ORATORYCLIA [id number] [address] Pathologist name Reviewed by Wing Cummings MD [facility] Comment on above: Order Comment: Speci men Type: CEREBROSPINAL FLUIDOrdering Facility: [facility] Address: [address] [place] [address] Performed By: #### L [id number], 35980-8, [id number] ####[facility] LABORATORYCLIA [id number] [address] Cell count panel (CSF)on Clarity (CSF) Clear Normal Clear [facility] Comment on above: Order Comment: Speci men Type: CEREBROSPINAL FLUIDOrdering Facility: [facility] Address: [address] [place] [address] Performed By: #### L ML4917, 70494-9, [id number] ####[facility]ATORYCLIA [id number] [address] Clarity (Unsp spec) Not Indicated Normal Clear [facility] Comment on above: Order Comment: Speci men Type: CEREBROSPINAL FLUIDOrdering Facility: [facility] Address: [address] [place] [address] Performed By: #### L NL1806, 92281-0, [id number] ####[facility]ATORYCLIA [id number] [address] Color (CSF) Colorless Normal Colorless [facility] Comment on above: Order Comment: Speci men Type: CEREBROSPINAL FLUIDOrdering Facility: [facility] Address: [address] [place] [address] Performed By: #### L UF7888, 20231-8, [id number] ####[facility]ATORYCLIA [id number] [address] Color (Spun CSF) Not Indicated Normal Colorless [facility] Comment on above: Order Comment: Speci men Type: CEREBROSPINAL FLUIDOrdering Facility: [facility] Address: [address] [place], [place] [address] Performed By: #### L [id number], 40358-2, [id number] ####[facility] LABORATORYCLIA [id number] [address] CSF [employer] Normal [facility] Comment on above: Order Comment: Speci men Type: CEREBROSPINAL FLUIDOrdering Facility: [facility] Address: [address] [place] [address] Performed By: #### L WX8636, 22466-3, [id number] ####[facility] LABORATORYCLIA [id number] [address] [place] RBC Manual cnt (CSF) [#/Vol] 0 cells/uL Normal 0-5 [facility] Comment on above: Order Comment: Shira feldman Type: CEREBROSPINAL FLUIDOrdering Facility: [facility] Address: [address] [place] [address] Performed By: #### L YX5411, 58738-4, [id number] ####[facility] LABORATORYCLIA [id number] [address] WBC Manual cnt (CSF) [#/Vol] 2 cells/uL Normal 0-5 [facility] Comment on above: Order Comment: Johni men Type: CEREBROSPINAL FLUIDOrdering Facility: [facility] Address: [address] [place] [address] Performed By: #### L UT1144, 81698-2, [id number] ####[facility] LABORATORYCLIA [id number] [address] [place] Glucose CSF-mCncon 2 Glucose (CSF) [Mass/Vol] 69 mg/dL Normal 40-70 [facility] Comment on above: Order Comment: Shira men Type: CEREBROSPINAL FLUIDOrdering Facility: [facility] Address: [address] [place] [address] Result Comment: Lumb ar CSF glucose values of healthy patients are approximately 60% of the plasma values and must always be compared with a concurrently measured plasma value for adequate clinical interpretation.References: 1. Glucose HK (GLUC3) [package insert V 12.0 [place]]. [employer], [place], [place]. September 2015. 2. Michelle Moore, Loki, H. (2015). Chapter 7: Glucose and Lactate. Marianela Alcocer al.(eds.), Cerebrospinal Fluid in Clinical Neurology. [place]: [place] [address]. Performed By: #### 2 342-4, 2880-3 ####[facility] LABORATORYCLIA [id number] [address] OF [facility] NURSING PROGon 07-19-2021 NURSING PROG Normal [facility] NURSING PROG Normal [facility] Prot CSF-mCncon 07-19-2021 Protein (CSF) [Mass/Vol] 51 mg/dL High [facility] Comment on above: Order Comment: Speci men Type: CEREBROSPINAL FLUIDOrdering Facility: [facility] Address: [address] [place] [address] Performed By: #### 2 342-4, 2880-3 ####[facility] LABORATORYCLIA [id number] [address] THERAPY NTon 07-19-2021 THERAPY NT Normal [facility] Urinalysis complete panel (U )on 07-19-2021 Bilirubin Ql (U) Negative Normal Negative [facility] Comment on above: Order Comment: Speci men Type: URINE SPECIMENOrdering Facility: [facility] Address: [address] [place] [address] Performed By: #### 2 4356-8 ####[facility] LABORATORYCLIA [id number] [address] Clarity (Unsp spec) Clear Normal Clear [facility] Comment on above: Order Comment: Speci men Type: URINE SPECIMENOrdering Facility: [facility] Address: [address] [place] [address] Performed By: #### 2 4356-8 ####[facility] LABORATORYCLIA [id number] [address] Color (U) Colorless Normal yellow [facility] Comment on above: Order Comment: Speci men Type: URINE SPECIMENOrdering Facility: [facility] Address: [address] [place] [address] Performed By: #### 2 4356-8 ####[facility] LABORATORYCLIA [id number] [address] Glucose Test strip (U) [Mass/Vol] Negative Normal Negative [facility] Comment on above: Order Comment: Speci men Type: URINE SPECIMENOrdering Facility: [facility] Address: [address] [place] [address] Performed By: #### 2 4356-8 ####[facility] LABORATORYCLIA [id number] [address] Hemoglobin Ql (U) Trace Abnormal Negative [facility] Comment on above: Order Comment: Speci men Type: URINE SPECIMENOrdering Facility: [facility] Address: [address] [place] [address] Performed By: #### 2 4356-8 ####[facility] LABORATORYCLIA [id number] [address] Hyaline casts (Urine sed) [#/Area] 1-3 /LPF Abnormal 0 /LPF [facility] Comment on above: Order Comment: Speci men Type: URINE SPECIMENOrdering Facility: [facility] Address: [address] [place] [address] Performed By: #### 2 4356-8 ####[facility] LABORATORYCLIA [id number] [address] Ketones Ql (U) Negative Normal Negative [facility] Comment on above: Order Comment: Speci men Type: URINE SPECIMENOrdering Facility: [facility] Address: [address] [place] [address] Performed By: #### 2 4356-8 ####[facility] LABORATORYCLIA [id number] [address] Leukocyte esterase Test strip Ql (U) Negative Normal Negative [facility] Comment on above: Order Comment: Speci men Type: URINE SPECIMENOrdering Facility: [facility] Address: [address] [place] [address] Performed By: #### 2 4356-8 ####[facility] LABORATORYCLIA [id number] [place] [address] [place] Nitrite Ql (U) Negative Normal Negative [facility] Comment on above: Order Comment: Speci men Type: URINE SPECIMENOrdering Facility: [facility] Address: [address] [place] [address] Performed By: #### 2 4356-8 ####[facility] LABORATORYCLIA [id number] [address] STATES [facility] pH (U) 7.0 [pH] Normal 5.0-8.0 [facility] Comment on above: Order Comment: Speci men Type: URINE SPECIMENOrdering Facility: [facility] Address: [address] [place] [address] Performed By: #### 2 4356-8 ####[facility] LABORATORYCLIA [id number] [place] [address] [place] Protein (U) [Mass/Vol] Negative Normal Negative [facility] Comment on above: Order Comment: Speci men Type: URINE SPECIMENOrdering Facility: [facility] Address: [address] [place] [address] Performed By: #### 2 4356-8 ####[facility] LABORATORYCLIA [id number] [address] [place] RBC LM.HPF (Urine sed) [#/Area] 6-10 /HPF Abnormal 0-3 /HPF [facility] Comment on above: Order Comment: Speci men Type: URINE SPECIMENOrdering Facility: [facility] Address: [address] [place] [address] Performed By: #### 2 4356-8 ####[facility] LABORATORYCLIA [id number] [place] [address] [place] Specific gravity (U) [Rel density] 1.008 Normal 1.005-1.030 [facility] Comment on above: Order Comment: Speci men Type: URINE SPECIMENOrdering Facility: [facility] Address: [address] [place] [address] Performed By: #### 2 4356-8 ####[facility] LABORATORYCLIA [id number] [address] Urobilinogen Ql (U) Normal Normal Negative [facility] Comment on above: Order Comment: Speci men Type: URINE SPECIMENOrdering Facility: [facility] Address: [address] [place] [address] Performed By: #### 2 4356-8 ####[facility] SERVICESCLIA [id number] [address] STATES [facility] WBC LM.HPF (Urine sed) [#/Area] 0-5 /HPF Normal 0-5 /HPF [facility] Comment on above: Order Comment: Speci men Type: URINE SPECIMENOrdering Facility: [facility] Address: [address] [place] [address] Performed By: #### 2 4356-8 ####[facility] LABORATORYCLIA [id number] [address] Vancomycin random [Mass/Vol] on 07-19-2021 Vancomycin [Mass/Vol] 13.9 ug/mL Normal 10.0-20.0 [facility] Comment on above: Order Comment: Speci men Type: BLOOD SPECIMENOrdering Facility: [facility] Address: [address] [place] [address] Result Comment: Refe rence ranges and high/low indicator flags are provided as general guidelines only. The treating physician must determine appropriate target levels/dosing based on the specific clinical situation. Performed By: #### 4 091-5 ####[facility] LABORATORYCLIA [id number] [address] [place] aPTT PPPon 07-19-2021 aPTT Coag (PPP) [Time] 53.9 s High 23.0-32.4 [facility] Comment on above: Order Comment: Speci men Type: BLOOD SPECIMENOrdering Facility: [facility] Address: [address] [place] [address] Performed By: #### 1 4979-9 ####[facility] LABORATORYCLIA [id number] [place] [address] [place] Basic metabolic 2000 panelon 07-18-2021 Anion gap [Moles/Vol] 6 mmol/L Low 9-18 [facility] Comment on above: Order Comment: Speci men Type: BLOOD SPECIMENOrdering Facility: [facility] Address: [address] [place] [address] Performed By: #### 2 4321-2, , 2776-05 ####[facility] LABORATORYCLIA [id number] [place] [address] [place] Calcium [Mass/Vol] 9.4 mg/dL Normal 8.5-10.2 [facility] Comment on above: Order Comment: Speci men Type: BLOOD SPECIMENOrdering Facility: [facility] Address: [address] [place] [address] Performed By: #### 2 4321-2, , 2776-05 ####[facility] LABORATORYCLIA [id number] [place] [address] [place] Chloride [Moles/Vol] 103 mmol/L Normal 97-105 [facility] Comment on above: Order Comment: Speci men Type: BLOOD SPECIMENOrdering Facility: [facility] Address: [address] [place], [place] [address] Performed By: #### 2 4321-2, , 2776-05 ####[facility] LABORATORYCLIA [id number] [place] [address] [place] CO2 [Moles/Vol] 34 mmol/L High 22-30 [facility] Comment on above: Order Comment: Speci men Type: BLOOD SPECIMENOrdering Facility: [facility] Address: [address] [place] [id number] Performed By: #### 2 4321-2, 43422-0, 2776-05 ####[facility] SERVICESCLIA [id number] [place] [id number] [place] [facility] Creatinine [Mass/Vol] 0.75 mg/dL Normal 0.73-1.22 [facility] Comment on above: Order Comment: Shira feldman Type: BLOOD SPECIMENOrdering Facility: [facility] Address: [address] [facility] [address]Pa[address] [place] [address] Performed By: #### 2 4321-2, , 2776-05 ####[facility] LABORATORYCLIA [id number] [address] OF [facility] ESTIMATED GLOMERULAR FILTRATION RATE 98 mL/min/1.73m??? Normal >=60 [facility] Comment on above: Order Comment: Shira feldman Type: BLOOD SPECIMENOrdering Facility: [facility] Address: [address] [place] [place] [address] Result Comment: Luzmaria mated Glomerular Filtration Rate [...] Performed By: #### 2 4321-2, , 2776-05 ####[facility] LABORATORYCLIA [id number] [place] [id number] [place] Glucose [Mass/Vol] 125 mg/dL High 74-99 [facility] Comment on above: Order Comment: Shira feldman Type: BLOOD SPECIMENOrdering Facility: [facility] Address: [address] [place] [address] Result Comment: The [place] [employer] Association (ADA) provides guidance for cutoff [...] Standards of Medical Care in Diabetes 2016, [place] [employer]. Diabetes Care. 2016.39(Suppl 1). Performed By: #### 2 4321-2, , 2776-05 ####[facility] LABORATORYCLIA [id number] [place] [address] [place] Potassium [Moles/Vol] 4.4 mmol/L Normal 3.7-5.1 [facility] Comment on above: Order Comment: Speci men Type: BLOOD SPECIMENOrdering Facility: [facility] Address: [address] [place] [address] Performed By: #### 2 432-2, , 2776-05 ####[facility] SERVICESCLIA [id number] [address] [place] Sodium [Moles/Vol] 143 mmol/L Normal 136-144 [facility] Comment on above: Order Comment: Johni francia Type: BLOOD SPECIMENOrdering Facility: [facility] Address: [address] [place] [address] Performed By: #### 2 4321-2, , 2776-05 ####[facility] LABORATORYCLIA [id number] [place] [address] [place] Urea nitrogen [Mass/Vol] 33 mg/dL High 9-24 [facility] Comment on above: Order Comment: Speci men Type: BLOOD SPECIMENOrdering Facility: [facility] Address: [address] [place] [address] Performed By: #### 2 4321-2, , 2776-05 ####[facility] LABORATORYCLIA [id number] [place] [phone] [place] CASE MANAGEMon 07-18-2021 CASE MANAGEM Normal [facility] CBC W Auto Differential pane l (Bld)on 07-18-2021 Basophils (Bld) [#/Vol] 0.05 10*3/uL Normal <0.11 [facility] Comment on above: Order Comment: Speci men Type: BLOOD SPECIMENOrdering Facility: [facility] Address: [address] [place] [address] Performed By: #### 5 7021-8 ####[facility]ORATORYCLIA [id number] [address] [place] Basophils/100 WBC (Bld) 0.5 % Normal [facility] Comment on above: Order Comment: Speci men Type: BLOOD SPECIMENOrdering Facility: [facility] Address: [address] [place] [address] Performed By: #### 5 7021-8 ####[facility] LABORATORYCLIA [id number] [address] [place] Differential cell count method Nom (Bld) Auto Normal [facility] Comment on above: Order Comment: Speci men Type: BLOOD SPECIMENOrdering Facility: [facility] Address: [address] [place] [address] Performed By: #### 5 7021-8 ####[facility] LABORATORYCLIA [id number] [place] [address] [place] Eosinophils (Bld) [#/Vol] 0.44 10*3/uL Normal <0.46 [facility] Comment on above: Order Comment: Speci men Type: BLOOD SPECIMENOrdering Facility: [facility] Address: [address] [place] [address] Performed By: #### 5 7021-8 ####[facility] LABORATORYCLIA [id number] [address] [place] Eosinophils/100 WBC (Bld) 4.3 % Normal [facility] Comment on above: Order Comment: Speci men Type: BLOOD SPECIMENOrdering Facility: [facility] Address: [address] [place] [address] Performed By: #### 5 7021-8 ####[facility] LABORATORYCLIA [id number] [address] Erythrocyte distribution width (RBC) [Ratio] 16.6 % High 11.5-15.0 [facility] Comment on above: Order Comment: Speci men Type: BLOOD SPECIMENOrdering Facility: [facility] Address: [address] [place] [address] Performed By: #### 5 7021-8 ####[facility] LABORATORYCLIA [id number] [address] Hematocrit (Bld) [Volume fraction] 32.2 % Low 39.0-51.0 [facility] Comment on above: Order Comment: Speci men Type: BLOOD SPECIMENOrdering Facility: [facility] Address: [address] [place] [address] Performed By: #### 5 7021-8 ####[facility] LABORATORYCLIA [id number] [address] Hemoglobin (Bld) [Mass/Vol] 9.5 g/dL Low 13.0-17.0 [facility] Comment on above: Order Comment: Speci men Type: BLOOD SPECIMENOrdering Facility: [facility] Address: [address] [place] [address] Performed By: #### 5 7021-8 ####[facility] LABORATORYCLIA [id number] [address] STATES [facility] IMMATURE GRAN % 0.4 % Normal [facility] Comment on above: Order Comment: Speci men Type: BLOOD SPECIMENOrdering Facility: [facility] Address: [address] [place] [address] Performed By: #### 5 7021-8 ####[facility] LABORATORYCLIA [id number] [address] IMMATURE GRAN ABS 0.04 k/uL Normal <0.10 [facility] Comment on above: Order Comment: Speci men Type: BLOOD SPECIMENOrdering Facility: [facility] Address: [address] [place] [address] Performed By: #### 5 7021-8 ####[facility] LABORATORYCLIA [id number] [address] Lymphocytes (Bld) [#/Vol] 1.71 10*3/uL Normal 1.00-4.00 [facility] Comment on above: Order Comment: Speci men Type: BLOOD SPECIMENOrdering Facility: [facility] Address: [address] [place] [address] Performed By: #### 5 7021-8 ####[facility] LABORATORYCLIA [id number] [address] Lymphocytes/100 WBC (Bld) 16.9 % Normal [facility] Comment on above: Order Comment: Speci men Type: BLOOD SPECIMENOrdering Facility: [facility] Address: [address] [place] [address] Performed By: #### 5 7021-8 ####[facility] LABORATORYCLIA [id number] [address] [place] [facility] MCH (RBC) [Entitic mass] 27.9 pg Normal 26.0-34.0 [facility] Comment on above: Order Comment: Speci men Type: BLOOD SPECIMENOrdering Facility: [facility] Address: [address] [place] [address] Performed By: #### 5 7021-8 ####[facility] LABORATORYCLIA [id number] [address] [place] MCHC (RBC) [Mass/Vol] 29.5 g/dL Low 30.5-36.0 [facility] Comment on above: Order Comment: Speci men Type: BLOOD SPECIMENOrdering Facility: [facility] Address: [address] [place] [address] Performed By: #### 5 7021-8 ####[facility] LABORATORYCLIA [id number] [place] [address] [place] MCV (RBC) [Entitic vol] 94.7 fL Normal 80.0-100.0 [facility] Comment on above: Order Comment: Speci men Type: BLOOD SPECIMENOrdering Facility: [facility] Address: [address] [place] [address] Performed By: #### 5 7021-8 ####[facility] LABORATORYCLIA [id number] [place] [address] [place] Monocytes (Bld) [#/Vol] 0.69 10*3/uL Normal <0.87 [facility] Comment on above: Order Comment: Speci men Type: BLOOD SPECIMENOrdering Facility: [facility] Address: [address] [place] [address] Performed By: #### 5 7021-8 ####[facility] LABORATORYCLIA [id number] [address] [place] Monocytes/100 WBC (Bld) 6.8 % Normal [facility] Comment on above: Order Comment: Speci men Type: BLOOD SPECIMENOrdering Facility: [facility] Address: [address] [place] [address] Performed By: #### 5 7021-8 ####[facility] LABORATORYCLIA [id number] [address] [place] Neutrophils (Bld) [#/Vol] 7.19 10*3/uL Normal 1.45-7.50 [facility] Comment on above: Order Comment: Speci men Type: BLOOD SPECIMENOrdering Facility: [facility] Address: [address] [place] [address] Performed By: #### 5 7021-8 ####[facility]ORATORYCLIA [id number] [address] [place] Neutrophils/100 WBC (Bld) 71.1 % Normal [facility] Comment on above: Order Comment: Speci men Type: BLOOD SPECIMENOrdering Facility: [facility] Address: [address] [place] [address] Performed By: #### 5 7021-8 ####[facility] LABORATORYCLIA [id number] [address] [place] Nucleated RBC (Bld) [#/Vol] 10*3/uL Normal <0.01 [facility] Comment on above: Order Comment: Speci men Type: BLOOD SPECIMENOrdering Facility: [facility] Address: [address] [place] [address] Performed By: #### 5 7021-8 ####[facility] LABORATORYCLIA [id number] [address] [place] Nucleated RBC/100 WBC (Bld) [Ratio] 0.0 /100 WBC Normal [facility] Comment on above: Order Comment: Speci men Type: BLOOD SPECIMENOrdering Facility: [facility] Address: [address] [place] [address] Performed By: #### 5 7021-8 ####[facility] LABORATORYCLIA [id number] [address] [place] Platelet mean volume (Bld) [Entitic vol] 10.3 fL Normal 9.0-12.7 [facility] Comment on above: Order Comment: Speci men Type: BLOOD SPECIMENOrdering Facility: [facility] Address: [address] [place] [address] Performed By: #### 5 7021-8 ####[facility] LABORATORYCLIA [id number] [address] [place] Platelets (Bld) [#/Vol] 403 10*3/uL High 150-400 [facility] Comment on above: Order Comment: Speci men Type: BLOOD SPECIMENOrdering Facility: [facility] Address: [address] [place] [address] Performed By: #### 5 7021-8 ####[facility] LABORATORYCLIA [id number] [address] [place] RBC (Bld) [#/Vol] 3.40 10*6/uL Low 4.20-6.00 [facility] Comment on above: Order Comment: Speci men Type: BLOOD SPECIMENOrdering Facility: [facility] Address: [address] [place] [address] Performed By: #### 5 7021-8 ####[facility] LABORATORYCLIA [id number] [address] [place] WBC (Bld) [#/Vol] 10.12 10*3/uL Normal 3.70-11.00 [facility] Comment on above: Order Comment: Speci men Type: BLOOD SPECIMENOrdering Facility: [facility] Address: [address] [place] [address] Performed By: #### 5 7021-8 ####[facility] LABORATORYCLIA [id number] [address] [place] [facility] Magnesium SerPl-mCncon 07-18 Magnesium [Mass/Vol] 2.4 mg/dL High 1.7-2.3 [facility] Comment on above: Order Comment: Speci men Type: BLOOD SPECIMENOrdering Facility: [facility] Address: [address] [place] [address] Performed By: #### 2 4321-2, , 2776-05 ####[facility] LABORATORYCLIA [id number] [address] [place] NURSING PROGon 07-18-2021 NURSING PROG Normal [facility] NURSING PROG Normal [facility] Phosphate SerPl-mCncon 07-18 Phosphate [Mass/Vol] 3.9 mg/dL Normal 2.7-4.8 [facility] Comment on above: Order Comment: Speci men Type: BLOOD SPECIMENOrdering Facility: [facility] Address: [address] [place] [address] Performed By: #### 2 4321-2, 13516-6, 2777- ####[facility] LABORATORYCLIA [id number] [address] [place] THERAPY NTon 07-18-2021 THERAPY NT Normal [facility] aPTT PPPon 07-18-2021 aPTT Coag (PPP) [Time] 52.3 s High 23.0-32.4 [facility] Comment on above: Order Comment: Speci men Type: BLOOD SPECIMENOrdering Facility: [facility] Address: [address] [place] [address] Performed By: #### 1 4979-9 ####[facility] LABORATORYCLIA [id number] [address] [place] [facility] CBC W Auto Differential pane l (Bld)on 07-17-2021 Basophils (Bld) [#/Vol] 0.05 10*3/uL Normal <0.11 [facility] Comment on above: Order Comment: Speci men Type: BLOOD SPECIMENOrdering Facility: [facility] Address: [address] [place] [address] Performed By: #### 5 7021-8 ####[facility] LABORATORYCLIA [id number] [address] [place] Basophils/100 WBC (Bld) 0.5 % Normal [facility] Comment on above: Order Comment: Speci men Type: BLOOD SPECIMENOrdering Facility: [facility] Address: [address] [place] [address] Performed By: #### 5 7021-8 ####[facility] LABORATORYCLIA [id number] [address] STATES [facility] Differential cell count method Nom (Bld) Auto Normal [facility] Comment on above: Order Comment: Speci men Type: BLOOD SPECIMENOrdering Facility: [facility] Address: [address] [place] [address] Performed By: #### 5 7021-8 ####[facility] LABORATORYCLIA [id number] [place] [address] [place] Eosinophils (Bld) [#/Vol] 0.32 10*3/uL Normal <0.46 [facility] Comment on above: Order Comment: Speci men Type: BLOOD SPECIMENOrdering Facility: [facility] Address: [address] [place] [address] Performed By: #### 5 7021-8 ####[facility] LABORATORYCLIA [id number] [address] Eosinophils/100 WBC (Bld) 3.4 % Normal [facility] Comment on above: Order Comment: Speci men Type: BLOOD SPECIMENOrdering Facility: [facility] Address: [address] [place] [address] Performed By: #### 5 7021-8 ####[facility] LABORATORYCLIA [id number] [address] Erythrocyte distribution width (RBC) [Ratio] 16.6 % High 11.5-15.0 [facility] Comment on above: Order Comment: Speci men Type: BLOOD SPECIMENOrdering Facility: [facility] Address: [address] [place] [address] Performed By: #### 5 7021-8 ####[facility] LABORATORYCLIA [id number] [address] Hematocrit (Bld) [Volume fraction] 30.7 % Low 39.0-51.0 [facility] Comment on above: Order Comment: Speci men Type: BLOOD SPECIMENOrdering Facility: [facility] Address: [address] [place] [address] Performed By: #### 5 7021-8 ####[facility] LABORATORYCLIA [id number] [address] [place] Hemoglobin (Bld) [Mass/Vol] 9.0 g/dL Low 13.0-17.0 [facility] Comment on above: Order Comment: Speci men Type: BLOOD SPECIMENOrdering Facility: [facility] Address: [address] [place] [address] Performed By: #### 5 7021-8 ####[facility] LABORATORYCLIA [id number] [address] [place] IMMATURE GRAN % 0.6 % Normal [facility] Comment on above: Order Comment: Speci men Type: BLOOD SPECIMENOrdering Facility: [facility] Address: [address] [place] [address] Performed By: #### 5 7021-8 ####[facility] LABORATORYCLIA [id number] [address] OF [facility] IMMATURE GRAN ABS 0.06 k/uL Normal <0.10 [facility] Comment on above: Order Comment: Speci men Type: BLOOD SPECIMENOrdering Facility: [facility] Address: [address] [place] [address] Performed By: #### 5 7021-8 ####[facility] LABORATORYCLIA [id number] [address] Lymphocytes (Bld) [#/Vol] 1.61 10*3/uL Normal 1.00-4.00 [facility] Comment on above: Order Comment: Speci men Type: BLOOD SPECIMENOrdering Facility: [facility] Address: [address] [place] [address] Performed By: #### 5 7021-8 ####[facility] LABORATORYCLIA [id number] [address] Lymphocytes/100 WBC (Bld) 17.3 % Normal [facility] Comment on above: Order Comment: Speci men Type: BLOOD SPECIMENOrdering Facility: [facility] Address: [address] [place] [address] Performed By: #### 5 7021-8 ####[facility] LABORATORYCLIA [id number] [address] STATES [facility] MCH (RBC) [Entitic mass] 26.9 pg Normal 26.0-34.0 [facility] Comment on above: Order Comment: Speci men Type: BLOOD SPECIMENOrdering Facility: [facility] Address: [address] [place] [address] Performed By: #### 5 7021-8 ####[facility] LABORATORYCLIA [id number] [address] MCHC (RBC) [Mass/Vol] 29.3 g/dL Low 30.5-36.0 [facility] Comment on above: Order Comment: Speci men Type: BLOOD SPECIMENOrdering Facility: [facility] Address: [address] [place] [address] Performed By: #### 5 7021-8 ####[facility] LABORATORYCLIA [id number] [address] [place] MCV (RBC) [Entitic vol] 91.9 fL Normal 80.0-100.0 [facility] Comment on above: Order Comment: Speci men Type: BLOOD SPECIMENOrdering Facility: [facility] Address: [address] [place] [address] Performed By: #### 5 7021-8 ####[facility] LABORATORYCLIA [id number] [address] [place] Monocytes (Bld) [#/Vol] 0.61 10*3/uL Normal <0.87 [facility] Comment on above: Order Comment: Speci men Type: BLOOD SPECIMENOrdering Facility: [facility] Address: [address] [place] [address] Performed By: #### 5 7021-8 ####[facility] LABORATORYCLIA [id number] [address] [place] [facility] Monocytes/100 WBC (Bld) 6.6 % Normal [facility] Comment on above: Order Comment: Speci men Type: BLOOD SPECIMENOrdering Facility: [facility] Address: [address] [place] [address] Performed By: #### 5 7021-8 ####[facility] LABORATORYCLIA [id number] [address] [place] Neutrophils (Bld) [#/Vol] 6.64 10*3/uL Normal 1.45-7.50 [facility] Comment on above: Order Comment: Speci men Type: BLOOD SPECIMENOrdering Facility: [facility] Address: [address] [place] [address] Performed By: #### 5 7021-8 ####[facility] LABORATORYCLIA [id number] [address] Neutrophils/100 WBC (Bld) 71.6 % Normal [facility] Comment on above: Order Comment: Speci men Type: BLOOD SPECIMENOrdering Facility: [facility] Address: [address] [place] [address] Performed By: #### 5 7021-8 ####[facility] LABORATORYCLIA [id number] [address] Nucleated RBC (Bld) [#/Vol] 10*3/uL Normal <0.01 [facility] Comment on above: Order Comment: Speci men Type: BLOOD SPECIMENOrdering Facility: [facility] Address: [address] [place] [address] Performed By: #### 5 7021-8 ####[facility] LABORATORYCLIA [id number] [address] Nucleated RBC/100 WBC (Bld) [Ratio] 0.0 /100 WBC Normal [facility] Comment on above: Order Comment: Speci men Type: BLOOD SPECIMENOrdering Facility: [facility] Address: [address] [place] [address] Performed By: #### 5 7021-8 ####[facility] LABORATORYCLIA [id number] [address] [place] Platelet mean volume (Bld) [Entitic vol] 10.1 fL Normal 9.0-12.7 [facility] Comment on above: Order Comment: Speci men Type: BLOOD SPECIMENOrdering Facility: [facility] Address: [address] [place] [address] Performed By: #### 5 7021-8 ####[facility] LABORATORYCLIA [id number] [address] [place] Platelets (Bld) [#/Vol] 387 10*3/uL Normal 150-400 [facility] Comment on above: Order Comment: Speci men Type: BLOOD SPECIMENOrdering Facility: [facility] Address: [address] [place] [address] Performed By: #### 5 7021-8 ####[facility] LABORATORYCLIA [id number] [address] RBC (Bld) [#/Vol] 3.34 10*6/uL Low 4.20-6.00 [facility] Comment on above: Order Comment: Speci men Type: BLOOD SPECIMENOrdering Facility: [facility] Address: [address] [place] [address] Performed By: #### 5 7021-8 ####[facility] LABORATORYCLIA [id number] [address] WBC (Bld) [#/Vol] 9.29 10*3/uL Normal 3.70-11.00 [facility] Comment on above: Order Comment: Speci men Type: BLOOD SPECIMENOrdering Facility: [facility] Address: [address] [place] [address] Performed By: #### 5 7021-8 ####[facility] LABORATORYCLIA [id number] [address] CONSULT PROGon 07-17-2021 CONSULT PROG Normal [facility] Magnesium SerPl-ncon 07-17 Magnesium [Mass/Vol] 2.3 mg/dL Normal 1.7-2.3 [facility] Comment on above: Order Comment: Speci men Type: BLOOD SPECIMENOrdering Facility: [facility] Address: [address] [place] [address] Performed By: #### 2 777-1, 66281-8 ####[facility] LABORATORYCLIA [id number] [address] NURSING PROGon 07-17-2021 NURSING PROG Normal [facility] NURSING PROG Normal [facility] NURSING PROG Normal [facility] Phosphate SerPl-mCncon 07-17 Phosphate [Mass/Vol] 3.6 mg/dL Normal 2.7-4.8 [facility] Comment on above: Order Comment: Speci men Type: BLOOD SPECIMENOrdering Facility: [facility] Address: [address] [place] [address] Performed By: #### 2 777-1, ####[facility] LABORATORYCLIA [id number] [address] [place] aPTT PPPon 07-17-2021 aPTT Coag (PPP) [Time] 57.2 s High 23.0-32.4 [facility] Comment on above: Order Comment: Speci men Type: BLOOD SPECIMENOrdering Facility: [facility] Address: [address] [place] [address] Performed By: #### 1 4979-9 ####[facility] LABORATORYCLIA [id number] [place] [address] [place] Basic metabolic 2000 panelon 07-16-2021 Anion gap [Moles/Vol] 5 mmol/L Low 9-18 [facility] Comment on above: Order Comment: Speci men Type: BLOOD SPECIMENOrdering Facility: [facility] Address: [address] [place] [address] Performed By: #### 2 777-1, 05672-9, ####[facility] LABORATORYCLIA [id number] [place] [address] [place] Calcium [Mass/Vol] 9.1 mg/dL Normal 8.5-10.2 [facility] Comment on above: Order Comment: Speci men Type: BLOOD SPECIMENOrdering Facility: [facility] Address: [address] [place] [address] Performed By: #### 2 777-1, , ####[facility] LABORATORYCLIA [id number] [address] [place] [facility] Chloride [Moles/Vol] 101 mmol/L Normal 97-105 [facility] Comment on above: Order Comment: Speci men Type: BLOOD SPECIMENOrdering Facility: [facility] Address: [address] [place] [address] Performed By: #### 2 777-1, 12621-1, ####[facility] SERVICESCLIA [id number] [address] [place] [facility] CO2 [Moles/Vol] 35 mmol/L High 22-30 [facility] Comment on above: Order Comment: Speci men Type: BLOOD SPECIMENOrdering Facility: [facility] Address: [address] [place] [address] Performed By: #### 2 777-1, 88938-5, ####[facility] SERVICESCLIA [id number] [address] Creatinine [Mass/Vol] 0.73 mg/dL Normal 0.73-1.22 [facility] Comment on above: Order Comment: Speci men Type: BLOOD SPECIMENOrdering Facility: [facility] Address: [address] [place] [address] Performed By: #### 2 777-1, , ####[facility]PITALIA [id number] [address] ESTIMATED GLOMERULAR FILTRATION RATE 98 mL/min/1.73m??? Normal >=60 [facility] Comment on above: Order Comment: Speci men Type: BLOOD SPECIMENOrdering Facility: [facility] Address: [address] [place] [address] Result Comment: Luzmaria mated Glomerular Filtration Rate [...] actual GFR. Performed By: #### 2 777-1, 91135-5, ####[facility] LABORATORYCLIA [id number] [place] [address] [place] Glucose [Mass/Vol] 133 mg/dL High 74-99 [facility] Comment on above: Order Comment: Speci men Type: BLOOD SPECIMENOrdering Facility: [facility] Address: [address] [place], [place] [phone] Result Comment: The [place] [employer] (ADA) provides guidance for cutoff [...] Standards of Medical Care in Diabetes 2016, [place] [employer]. Diabetes Care. 2016.39(Suppl 1). Performed By: #### 2 777-1, 94805-0, ####[facility] LABORATORYCLIA [id number] [place] [address] [place] Potassium [Moles/Vol] 4.2 mmol/L Normal 3.7-5.1 [facility] Comment on above: Order Comment: Johni men Type: BLOOD SPECIMENOrdering Facility: [facility] Address: [address] [place] [id number] Performed By: #### 2 777-1, 25269-4, ####[facility] LABORATORYCLIA [id number] [place] [address] [place] Sodium [Moles/Vol] 141 mmol/L Normal 136-144 [facility] Comment on above: Order Comment: Speci men Type: BLOOD SPECIMENOrdering Facility: [facility] Address: [address] [place], [place] [phone] Performed By: #### 2 777-1, 86992-9, ####[facility] LABORATORYCLIA [id number] [address] [place] Urea nitrogen [Mass/Vol] 21 mg/dL Normal 9-24 [facility] Comment on above: Order Comment: Speci men Type: BLOOD SPECIMENOrdering Facility: [facility] Address: [address] [place] [address] Performed By: #### 2 777-1, 46201-8, 96812-9 ####[facility] LABORATORYCLIA [id number] [address] [place] [facility] CBC W Auto Differential pane l (Bld)on 07-16-2021 Basophils (Bld) [#/Vol] 0.06 10*3/uL Normal <0.11 [facility] Comment on above: Order Comment: Speci men Type: BLOOD SPECIMENOrdering Facility: [facility] Address: [address] [place] [address] Performed By: #### 5 7021-8 ####[facility] LABORATORYCLIA [id number] [address] [place] Basophils/100 WBC (Bld) 0.7 % Normal [facility] Comment on above: Order Comment: Speci men Type: BLOOD SPECIMENOrdering Facility: [facility] Address: [address] [place] [address] Performed By: #### 5 7021-8 ####[facility] LABORATORYCLIA [id number] [address] Differential cell count method Nom (Bld) Auto Normal [facility] Comment on above: Order Comment: Speci men Type: BLOOD SPECIMENOrdering Facility: [facility] Address: [address] [place] [address] Performed By: #### 5 7021-8 ####[facility] LABORATORYCLIA [id number] [address] [place] Eosinophils (Bld) [#/Vol] 0.35 10*3/uL Normal <0.46 [facility] Comment on above: Order Comment: Speci men Type: BLOOD SPECIMENOrdering Facility: [facility] Address: [address] [place] [place] [address] Performed By: #### 5 7021-8 ####[facility]ORATORYCLIA [id number] [address] Eosinophils/100 WBC (Bld) 3.9 % Normal [facility] Comment on above: Order Comment: Speci men Type: BLOOD SPECIMENOrdering Facility: [facility] Address: [address] [place] [address] Performed By: #### 5 7021-8 ####[facility] LABORATORYCLIA [id number] [address] Erythrocyte distribution width (RBC) [Ratio] 16.5 % High 11.5-15.0 [facility] Comment on above: Order Comment: Speci men Type: BLOOD SPECIMENOrdering Facility: [facility] Address: [address] [place] [address] Performed By: #### 5 7021-8 ####[facility] LABORATORYCLIA [id number] [address] Hematocrit (Bld) [Volume fraction] 30.9 % Low 39.0-51.0 [facility] Comment on above: Order Comment: Speci men Type: BLOOD SPECIMENOrdering Facility: [facility] Address: [address] [place] [address] Performed By: #### 5 7021-8 ####[facility] LABORATORYCLIA [id number] [address] [place] Hemoglobin (Bld) [Mass/Vol] 9.1 g/dL Low 13.0-17.0 [facility] Comment on above: Order Comment: Speci men Type: BLOOD SPECIMENOrdering Facility: [facility] Address: [address] [place] [address] Performed By: #### 5 7021-8 ####[facility] LABORATORYCLIA [id number] [address] [place] IMMATURE GRAN % 0.4 % Normal [facility] Comment on above: Order Comment: Speci men Type: BLOOD SPECIMENOrdering Facility: [facility] Address: [address] [place] [address] Performed By: #### 5 7021-8 ####[facility] LABORATORYCLIA [id number] [address] IMMATURE GRAN ABS 0.04 k/uL Normal <0.10 [facility] Comment on above: Order Comment: Speci men Type: BLOOD SPECIMENOrdering Facility: [facility] Address: [address] [place] [address] Performed By: #### 5 7021-8 ####[facility] LABORATORYCLIA [id number] [address] Lymphocytes (Bld) [#/Vol] 1.35 10*3/uL Normal 1.00-4.00 [facility] Comment on above: Order Comment: Speci men Type: BLOOD SPECIMENOrdering Facility: [facility] Address: [address] [place] [address] Performed By: #### 5 7021-8 ####[facility] LABORATORYCLIA [id number] [address] Lymphocytes/100 WBC (Bld) 15.0 % Normal [facility] Comment on above: Order Comment: Speci men Type: BLOOD SPECIMENOrdering Facility: [facility] Address: [address] [place] [address] Performed By: #### 5 7021-8 ####[facility] LABORATORYCLIA [id number] [address] MCH (RBC) [Entitic mass] 27.1 pg Normal 26.0-34.0 [facility] Comment on above: Order Comment: Speci men Type: BLOOD SPECIMENOrdering Facility: [facility] Address: [address] [place] [address] Performed By: #### 5 7021-8 ####[facility] LABORATORYCLIA [id number] [place] [address] [place] MCHC (RBC) [Mass/Vol] 29.4 g/dL Low 30.5-36.0 [facility] Comment on above: Order Comment: Speci men Type: BLOOD SPECIMENOrdering Facility: [facility] Address: [address] [place] [address] Performed By: #### 5 7021-8 ####[facility] LABORATORYCLIA [id number] [place] [address] [place] MCV (RBC) [Entitic vol] 92.0 fL Normal 80.0-100.0 [facility] Comment on above: Order Comment: Speci men Type: BLOOD SPECIMENOrdering Facility: [facility] Address: [address] [place] [address] Performed By: #### 5 7021-8 ####[facility] LABORATORYCLIA [id number] [address] [place] Monocytes (Bld) [#/Vol] 0.53 10*3/uL Normal <0.87 [facility] Comment on above: Order Comment: Speci men Type: BLOOD SPECIMENOrdering Facility: [facility] Address: [address] [place] [address] Performed By: #### 5 7021-8 ####[facility] LABORATORYCLIA [id number] [address] [place] Monocytes/100 WBC (Bld) 5.9 % Normal [facility] Comment on above: Order Comment: Speci men Type: BLOOD SPECIMENOrdering Facility: [facility] Address: [address] [place] [address] Performed By: #### 5 7021-8 ####[facility] LABORATORYCLIA [id number] [place] [address] [place] Neutrophils (Bld) [#/Vol] 6.67 10*3/uL Normal 1.45-7.50 [facility] Comment on above: Order Comment: Speci men Type: BLOOD SPECIMENOrdering Facility: [facility] Address: [address] [place] [address] Performed By: #### 5 7021-8 ####[facility] LABORATORYCLIA [id number] [address] Neutrophils/100 WBC (Bld) 74.1 % Normal [facility] Comment on above: Order Comment: Speci men Type: BLOOD SPECIMENOrdering Facility: [facility] Address: [address] [place] [address] Performed By: #### 5 7021-8 ####[facility] LABORATORYCLIA [id number] [address] [place] Nucleated RBC (Bld) [#/Vol] 10*3/uL Normal <0.01 [facility] Comment on above: Order Comment: Speci men Type: BLOOD SPECIMENOrdering Facility: [facility] Address: [address] [place] [address] Performed By: #### 5 7021-8 ####[facility] LABORATORYCLIA [id number] [address] Nucleated RBC/100 WBC (Bld) [Ratio] 0.0 /100 WBC Normal [facility] Comment on above: Order Comment: Speci men Type: BLOOD SPECIMENOrdering Facility: [facility] Address: [address] [place] [address] Performed By: #### 5 7021-8 ####[facility] LABORATORYCLIA [id number] [address] [place] Platelet mean volume (Bld) [Entitic vol] 9.9 fL Normal 9.0-12.7 [facility] Comment on above: Order Comment: Speci men Type: BLOOD SPECIMENOrdering Facility: [facility] Address: [address] [place] [address] Performed By: #### 5 7021-8 ####[facility] LABORATORYCLIA [id number] [address] [place] Platelets (Bld) [#/Vol] 391 10*3/uL Normal 150-400 [facility] Comment on above: Order Comment: Speci men Type: BLOOD SPECIMENOrdering Facility: [facility] Address: [address] [place] [address] Performed By: #### 5 7021-8 ####[facility] LABORATORYCLIA [id number] [address] RBC (Bld) [#/Vol] 3.36 10*6/uL Low 4.20-6.00 [facility] Comment on above: Order Comment: Speci men Type: BLOOD SPECIMENOrdering Facility: [facility] Address: [address] [place] [address] Performed By: #### 5 7021-8 ####[facility] LABORATORYCLIA [id number] [address] WBC (Bld) [#/Vol] 9.00 10*3/uL Normal 3.70-11.00 [facility] Comment on above: Order Comment: Speci men Type: BLOOD SPECIMENOrdering Facility: [facility] Address: [address] [place] [address] Performed By: #### 5 7021-8 ####[facility] LABORATORYCLIA [id number] [address] CONSULT PROGon 07-16-2021 CONSULT PROG Normal [facility] CONSULT PROG Normal [facility] Magnesium SerPl-ncon 07-16 Magnesium [Mass/Vol] 2.3 mg/dL Normal 1.7-2.3 [facility] Comment on above: Order Comment: Speci men Type: BLOOD SPECIMENOrdering Facility: [facility] Address: [address] [place] [address] Performed By: #### 2 777-1, 32202-6, 34200-8 ####[facility] LABORATORYCLIA [id number] [address] NURSING PROGon 07-16-2021 NURSING PROG Normal [facility] Phosphate SerPl-mCncon 07-16 Phosphate [Mass/Vol] 3.6 mg/dL Normal 2.7-4.8 [facility] Comment on above: Order Comment: Speci men Type: BLOOD SPECIMENOrdering Facility: [facility] Address: [facility] [place] [address] Performed By: #### 2 777-1, 39537-1, 60981-1 ####[facility] LABORATORYCLIA [id number] [address] OF [facility] Vancomycin random [Mass/Vol] on 07-16-2021 Vancomycin [Mass/Vol] 16.9 ug/mL Normal 10.0-20.0 [facility] Comment on above: Order Comment: Speci men Type: BLOOD SPECIMENOrdering Facility: [facility] Address: [address] [place] [address] Result Comment: Refe rence ranges and high/low indicator flags are provided as general guidelines only. The treating physician must determine appropriate target levels/dosing based on the specific clinical situation. Performed By: #### 4 091-5 ####[facility] LABORATORYCLIA [id number] [address] aPTT PPPon 07-16-2021 aPTT Coag (PPP) [Time] 57.2 s High 23.0-32.4 [facility] Comment on above: Order Comment: Speci men Type: BLOOD SPECIMENOrdering Facility: [facility] Address: [address] [place] [address] [place] [address] Performed By: #### 1 4979-9 ####[facility] LABORATORYCLIA [id number] [address] [place] ALLIED HEALTHon 07-15-2021 ALLIED HEALTH Normal [facility] Basic metabolic 2000 panelon 07-15-2021 Anion gap [Moles/Vol] 11 mmol/L Normal 9-18 [facility] Comment on above: Order Comment: Speci men Type: BLOOD SPECIMENOrdering Facility: [facility] Address: [address] [place] [address] Performed By: #### 2 4321-2, 25700-8, 2776-05 ####[facility] LABORATORYCLIA [id number] [place] [address] [place] Calcium [Mass/Vol] 8.8 mg/dL Normal 8.5-10.2 [facility] Comment on above: Order Comment: Speci men Type: BLOOD SPECIMENOrdering Facility: [facility] Address: [address] [place] [address] Performed By: #### 2 4321-2, , 2776-05 ####[facility] LABORATORYCLIA [id number] [place] [address] [place] Chloride [Moles/Vol] 101 mmol/L Normal 97-105 [facility] Comment on above: Order Comment: Speci men Type: BLOOD SPECIMENOrdering Facility: [facility] Address: [address] [place] [address] Performed By: #### 2 4320-2, , 2776-05 ####[facility] LABORATORYCLIA [id number] [place] [address] [place] CO2 [Moles/Vol] 31 mmol/L High 22-30 [facility] Comment on above: Order Comment: Speci men Type: BLOOD SPECIMENOrdering Facility: [facility] Address: [address] [place] [address] Performed By: #### 2 1-2, , 2776-05 ####[facility] LABORATORYCLIA [id number] [place] [address] [place] Creatinine [Mass/Vol] 0.76 mg/dL Normal 0.73-1.22 [facility] Comment on above: Order Comment: Speci men Type: BLOOD SPECIMENOrdering Facility: [facility] Address: [address] [place] [address] Performed By: #### 2 4321-2, , 2776-05 ####[facility] LABORATORYCLIA [id number] [address] [place] ESTIMATED GLOMERULAR FILTRATION RATE 97 mL/min/1.73m??? Normal >=60 [facility] Comment on above: Order Comment: Shira feldman Type: BLOOD SPECIMENOrdering Facility: [facility] Address: [address] [place], [place] [id number] Result Comment: Luzmaria mated Glomerular Filtration Rate [...] actual GFR. Performed By: #### 2 4321-2, 82783-8, 2776- ####[facility] SERVICESCLIA [id number] [place] [address] [place] Glucose [Mass/Vol] 115 mg/dL High 74-99 [facility] Comment on above: Order Comment: Shira feldman Type: BLOOD SPECIMENOrdering Facility: [facility] Address: [address] [place] [address] Result Comment: The [place] [employer] (ADA) provides guidance for cutoff [...] Standards of Medical Care in Diabetes 2016, [place] [employer]. Diabetes Care. 2016.39(Suppl 1). Performed By: #### 2 4321-2, 92197-5, 2776- ####[facility] LABORATORYCLIA [id number] [place] [id number] [place] Potassium [Moles/Vol] 4.0 mmol/L Normal 3.7-5.1 [facility] Comment on above: Order Comment: Sh[facility] Type: BLOOD SPECIMENOrdering Facility: [facility] Address: [address] [place] [address] Performed By: #### 2 4321-2, 10659-5, 1 ####[facility] LABORATORYCLIA [id number] [address] STATES [facility] Sodium [Moles/Vol] 143 mmol/L Normal 136-144 [facility] Comment on above: Order Comment: Speci men Type: BLOOD SPECIMENOrdering Facility: [facility] Address: [address] [place] [address] Performed By: #### 2 4321-2, , 2776-05 ####[facility] LABORATORYCLIA [id number] [address] STATES [facility] Urea nitrogen [Mass/Vol] 17 mg/dL Normal 9-24 [facility] Comment on above: Order Comment: Speci men Type: BLOOD SPECIMENOrdering Facility: [facility] Address: [address] [place] [address] Performed By: #### 2 4321-2, , 27711-04 ####[facility] LABORATORYCLIA [id number] [address] OF [facility] CASE MANAGEMon 07-15-2021 CASE MANAGEM Normal [facility] CBC panel Auto (Bld)on 07-15 Erythrocyte distribution width (RBC) [Ratio] 16.4 % High 11.5-15.0 [facility] Comment on above: Order Comment: Speci men Type: BLOOD SPECIMENOrdering Facility: [facility] Address: [address] [place] [address] Performed By: #### 5 8410-2 ####[facility] LABORATORYCLIA [id number] [address] STATES [facility] Hematocrit (Bld) [Volume fraction] 30.3 % Low 39.0-51.0 [facility] Comment on above: Order Comment: Speci men Type: BLOOD SPECIMENOrdering Facility: [facility] Address: [address] [place], [place] [id number] Performed By: #### 5 8410-2 ####[facility] LABORATORYCLIA [id number] [address] Hemoglobin (Bld) [Mass/Vol] 9.2 g/dL Low 13.0-17.0 [facility] Comment on above: Order Comment: Speci men Type: BLOOD SPECIMENOrdering Facility: [facility] Address: [address] [place] [address] Performed By: #### 5 8410-2 ####[facility] LABORATORYCLIA [id number] [address] MCH (RBC) [Entitic mass] 28.3 pg Normal 26.0-34.0 [facility] Comment on above: Order Comment: Speci men Type: BLOOD SPECIMENOrdering Facility: [facility] Address: [address] [place] [address] Performed By: #### 5 8410-2 ####[facility] LABORATORYCLIA [id number] [address] MCHC (RBC) [Mass/Vol] 30.4 g/dL Low 30.5-36.0 [facility] Comment on above: Order Comment: Speci men Type: BLOOD SPECIMENOrdering Facility: [facility] Address: [address] [place] [address] Performed By: #### 5 8410-2 ####[facility] LABORATORYCLIA [id number] [address] MCV (RBC) [Entitic vol] 93.2 fL Normal 80.0-100.0 [facility] Comment on above: Order Comment: Speci men Type: BLOOD SPECIMENOrdering Facility: [facility] Address: [address] [place] [address] Performed By: #### 5 8410-2 ####[facility] LABORATORYCLIA [id number] [address] Nucleated RBC (Bld) [#/Vol] 10*3/uL Normal <0.01 [facility] Comment on above: Order Comment: Speci men Type: BLOOD SPECIMENOrdering Facility: [facility] Address: [address] [place] [address] Performed By: #### 5 8410-2 ####[facility] LABORATORYCLIA [id number] [address] [place] Platelet mean volume (Bld) [Entitic vol] 9.9 fL Normal 9.0-12.7 [facility] Comment on above: Order Comment: Speci men Type: BLOOD SPECIMENOrdering Facility: [facility] Address: [address] [place] [address] Performed By: #### 5 8410-2 ####[facility] LABORATORYCLIA [id number] [address] [place] Platelets (Bld) [#/Vol] 381 10*3/uL Normal 150-400 [facility] Comment on above: Order Comment: Speci men Type: BLOOD SPECIMENOrdering Facility: [facility] Address: [address] [place] [address] Performed By: #### 5 8410-2 ####[facility] LABORATORYCLIA [id number] [place] [address] [place] RBC (Bld) [#/Vol] 3.25 10*6/uL Low 4.20-6.00 [facility] Comment on above: Order Comment: Speci men Type: BLOOD SPECIMENOrdering Facility: [facility] Address: [address] [place], [place] [address] Performed By: #### 5 8410-2 ####[facility] LABORATORYCLIA [id number] [address] [place] WBC (Bld) [#/Vol] 8.80 10*3/uL Normal 3.70-11.00 [facility] Comment on above: Order Comment: Speci men Type: BLOOD SPECIMENOrdering Facility: [facility] Address: [address] [place], [place] [address] Performed By: #### 5 8410-2 ####[facility] LABORATORYCLIA [id number] [address] Magnesium SerPl-mCncon 07-15 Magnesium [Mass/Vol] 2.2 mg/dL Normal 1.7-2.3 [facility] Comment on above: Order Comment: Speci men Type: BLOOD SPECIMENOrdering Facility: [facility] Address: [address] [place] [address] Performed By: #### 2 4321-2, 55325-9, 27711-04 ####[facility] LABORATORYCLIA [id number] [address] NURSING PROGon 07-15-2021 NURSING PROG Normal [facility] NURSING PROG Normal [facility] NURSING PROG Normal [facility] NUTRITIONon 07-15-2021 NUTRITION Normal [facility] Phosphate SerPl-mCncon 07-15 Phosphate [Mass/Vol] 3.4 mg/dL Normal 2.7-4.8 [facility] Comment on above: Order Comment: Speci men Type: BLOOD SPECIMENOrdering Facility: [facility] Address: [address] [place] [address] Performed By: #### 2 4321-2, , 2776-05 ####[facility] LABORATORYCLIA [id number] [address] [place] THERAPY NTon 07-15-2021 THERAPY NT Normal [facility] US DVT UPPER LTon 07-15-2021 US DVT UPPER LT Normal [facility] XR CHEST 1V FRONTALon 2021 XR CHEST 1V FRONTAL Normal [facility] aPTT PPPon 07-15-2021 aPTT Coag (PPP) [Time] 59.9 s High 23.0-32.4 [facility] Comment on above: Order Comment: Speci men Type: BLOOD SPECIMENOrdering Facility: [facility] Address: [address] [place] [address] Performed By: #### 1 4979-9 ####[facility] LABORATORYCLIA [id number] [place] [address] [place] Basic metabolic 2000 panelon 07-14-2021 Anion gap [Moles/Vol] 9 mmol/L Normal 9-18 [facility] Comment on above: Order Comment: Speci men Type: BLOOD SPECIMENOrdering Facility: [facility] Address: [address] [place] [address] Performed By: #### 1 9123-9, 2777-, 42215-5 ####[facility] LABORATORYCLIA [id number] [place] [address] [place] Calcium [Mass/Vol] 8.5 mg/dL Normal 8.5-10.2 [facility] Comment on above: Order Comment: Speci men Type: BLOOD SPECIMENOrdering Facility: [facility] Address: [address] [place] [address] Performed By: #### 1 9123-9, 2777, 57775-1 ####[facility] LABORATORYCLIA [id number] [place] [address] [place] Chloride [Moles/Vol] 99 mmol/L Normal 97-105 [facility] Comment on above: Order Comment: Speci men Type: BLOOD SPECIMENOrdering Facility: [facility] Address: [address] [place] [address] Performed By: #### 1 9123-9, 27711-04, 75846-5 ####[facility] LABORATORYCLIA [id number] [place] [id number] [place] CO2 [Moles/Vol] 31 mmol/L High 22-30 [facility] Comment on above: Order Comment: Speci men Type: BLOOD SPECIMENOrdering Facility: [facility] Address: [address] [place] [address] Performed By: #### 1 9123-9, 2777-1, 90112-5 ####[facility] LABORATORYCLIA [id number] [place] [address] [place] Creatinine [Mass/Vol] 0.74 mg/dL Normal 0.73-1.22 [facility] Comment on above: Order Comment: Shira feldman Type: BLOOD SPECIMENOrdering Facility: [facility] Address: [address] [place] [address] Performed By: #### 1 9123-9, 2777-1, 76033-1 ####[facility] LABORATORYCLIA [id number] [address] OF [facility] ESTIMATED GLOMERULAR FILTRATION RATE 98 mL/min/1.73m??? Normal >=60 [facility] Comment on above: Order Comment: Shira feldman Type: BLOOD SPECIMENOrdering Facility: [facility] Address: [address] [place] [address] Result Comment: Luzmaria mated Glomerular Filtration Rate [...] GFR. Performed By: #### 1 9123-9, 2777-1, 70737-4 ####[facility] LABORATORYCLIA [id number] [address] [place] Glucose [Mass/Vol] 117 mg/dL High 74-99 [facility] Comment on above: Order Comment: Shira feldman Type: BLOOD SPECIMENOrdering Facility: [facility] Address: [address] [address] Result Comment: The [place] [employer] (ADA) provides guidance for cutoff [...] Standards of Medical Care in Diabetes 2016, [place] [employer]. Diabetes Care. 2016.39(Suppl 1). Performed By: #### 1 9123-9, 2777-1, 65807-0 ####[facility] LABORATORYCLIA [id number] [place] [address] [place] Potassium [Moles/Vol] 3.7 mmol/L Normal 3.7-5.1 [facility] Comment on above: Order Comment: Speci men Type: BLOOD SPECIMENOrdering Facility: [facility] Address: [address] [place] [address] Performed By: #### 1 9123-9, 2777-, 53603-1 ####[facility] LABORATORYCLIA [id number] [address] STATES [facility] Sodium [Moles/Vol] 139 mmol/L Normal 136-144 [facility] Comment on above: Order Comment: Johni francia Type: BLOOD SPECIMENOrdering Facility: [facility] Address: [address] [place] [address] Performed By: #### 1 9123-9, 2777-, 93604-7 ####[facility] LABORATORYCLIA [id number] [address] STATES [facility] Urea nitrogen [Mass/Vol] 16 mg/dL Normal 9-24 [facility] Comment on above: Order Comment: Johni men Type: BLOOD SPECIMENOrdering Facility: [facility] Address: [address] [address] Performed By: #### 1 9123-9, 2777-, 87421-8 ####[facility] LABORATORYCLIA [id number] [address] [place] CBC panel Auto (Bld)on 07-14 Erythrocyte distribution width (RBC) [Ratio] 16.2 % High 11.5-15.0 [facility] Comment on above: Order Comment: Speci men Type: BLOOD SPECIMENOrdering Facility: [facility] Address: [address] [address] Performed By: #### 5 8410-2 ####[facility] LABORATORYCLIA [id number] [address] Hematocrit (Bld) [Volume fraction] 29.7 % Low 39.0-51.0 [facility] Comment on above: Order Comment: Speci men Type: BLOOD SPECIMENOrdering Facility: [facility] Address: [address] [place] [address] Performed By: #### 5 8410-2 ####[facility] LABORATORYCLIA [id number] [address] Hemoglobin (Bld) [Mass/Vol] 8.8 g/dL Low 13.0-17.0 [facility] Comment on above: Order Comment: Speci men Type: BLOOD SPECIMENOrdering Facility: [facility] Address: [address] [place] [address] Performed By: #### 5 8410-2 ####[facility] LABORATORYCLIA [id number] [address] MCH (RBC) [Entitic mass] 27.5 pg Normal 26.0-34.0 [facility] Comment on above: Order Comment: Speci men Type: BLOOD SPECIMENOrdering Facility: [facility] Address: [address] [place] [address] Performed By: #### 5 8410-2 ####[facility] LABORATORYCLIA [id number] [address] MCHC (RBC) [Mass/Vol] 29.6 g/dL Low 30.5-36.0 [facility] Comment on above: Order Comment: Speci men Type: BLOOD SPECIMENOrdering Facility: [facility] Address: [address] [place] [address] Performed By: #### 5 8410-2 ####[facility] LABORATORYCLIA [id number] [address] MCV (RBC) [Entitic vol] 92.8 fL Normal 80.0-100.0 [facility] Comment on above: Order Comment: Speci men Type: BLOOD SPECIMENOrdering Facility: [facility] Address: [address] [place], [place] [address] Performed By: #### 5 8410-2 ####[facility] LABORATORYCLIA [id number] [address] [place] Nucleated RBC (Bld) [#/Vol] 10*3/uL Normal <0.01 [facility] Comment on above: Order Comment: Speci men Type: BLOOD SPECIMENOrdering Facility: [facility] Address: [address] [place], [place] [address] Performed By: #### 5 8410-2 ####[facility] LABORATORYCLIA [id number] [address] [place] Platelet mean volume (Bld) [Entitic vol] 9.6 fL Normal 9.0-12.7 [facility] Comment on above: Order Comment: Speci men Type: BLOOD SPECIMENOrdering Facility: [facility] Address: [address] [place] [address] Performed By: #### 5 8410-2 ####[facility] LABORATORYCLIA [id number] [address] [place] Platelets (Bld) [#/Vol] 354 10*3/uL Normal 150-400 [facility] Comment on above: Order Comment: Speci men Type: BLOOD SPECIMENOrdering Facility: [facility] Address: [address] [place], [place] [address] Performed By: #### 5 8410-2 ####[facility] LABORATORYCLIA [id number] [address] [place] RBC (Bld) [#/Vol] 3.20 10*6/uL Low 4.20-6.00 [facility] Comment on above: Order Comment: Speci men Type: BLOOD SPECIMENOrdering Facility: [facility] Address: [address] [place], [place] [address] Performed By: #### 5 8410-2 ####[facility] LABORATORYCLIA [id number] [address] WBC (Bld) [#/Vol] 9.41 10*3/uL Normal 3.70-11.00 [facility] Comment on above: Order Comment: Speci men Type: BLOOD SPECIMENOrdering Facility: [facility] Address: [address] [place] [address] Performed By: #### 5 8410-2 ####[facility] LABORATORYCLIA [id number] [address] CONSULT PROGon 07-14-2021 CONSULT PROG Normal [facility] Magnesium SerPl-mCncon 07-14 Magnesium [Mass/Vol] 2.2 mg/dL Normal 1.7-2.3 [facility] Comment on above: Order Comment: Speci men Type: BLOOD SPECIMENOrdering Facility: [facility] Address: [address] [place] [address] Performed By: #### 1 9123-9, 2777-1, 97909-6 ####[facility] LABORATORYCLIA [id number] [address] NURSING PROGon 07-14-2021 NURSING PROG Normal [facility] Phosphate SerPl-mCncon 07-14 Phosphate [Mass/Vol] 3.6 mg/dL Normal 2.7-4.8 [facility] Comment on above: Order Comment: Speci men Type: BLOOD SPECIMENOrdering Facility: [facility] Address: [address] [place] [address] Performed By: #### 1 9123-9, 2777-1, 40355-5 ####[facility] LABORATORYCLIA [id number] [address] aPTT PPPon 07-14-2021 aPTT Coag (PPP) [Time] 62.9 s High 23.0-32.4 [facility] Comment on above: Order Comment: Speci men Type: BLOOD SPECIMENOrdering Facility: [facility] Address: [address] [place] [address] Performed By: #### 1 4979-9 ####[facility] LABORATORYCLIA [id number] [address] aPTT Coag (PPP) [Time] 55.2 s High 23.0-32.4 [facility] Comment on above: Order Comment: Speci men Type: BLOOD SPECIMENOrdering Facility: [facility] Address: [address] [place] [address] Performed By: #### 1 4979-9 ####[facility] LABORATORYCLIA [id number] [address] [place] Basic metabolic 2000 panelon 07-13-2021 Anion gap [Moles/Vol] 10 mmol/L Normal 9-18 [facility] Comment on above: Order Comment: Speci men Type: BLOOD SPECIMENOrdering Facility: [facility] Address: [address] [place] [address] Performed By: #### 1 9123-9, 2777-1, 10317-9 ####[facility] SERVICESCLIA [id number] [place] [address] [place] Calcium [Mass/Vol] 8.5 mg/dL Normal 8.5-10.2 [facility] Comment on above: Order Comment: Speci men Type: BLOOD SPECIMENOrdering Facility: [facility] Address: [address] [place] [address] Performed By: #### 1 9123-9, 2777-1, 12074-1 ####[facility] LABORATORYCLIA [id number] [address] STATES OF [facility] Chloride [Moles/Vol] 98 mmol/L Normal 97-105 [facility] Comment on above: Order Comment: Speci men Type: BLOOD SPECIMENOrdering Facility: [facility] Address: [address] [place] [address] Performed By: #### 1 9123-9, 2777-1, 87997-5 ####[facility] LABORATORYCLIA [id number] [place] [address] [place] CO2 [Moles/Vol] 32 mmol/L High 22-30 [facility] Comment on above: Order Comment: Speci men Type: BLOOD SPECIMENOrdering Facility: [facility] Address: [address] [place] [address] Performed By: #### 1 9123-9, 2777, 08616-9 ####[facility] SERVICESCLIA [id number] [place] [address] [address] [place] [facility] Creatinine [Mass/Vol] 0.75 mg/dL Normal 0.73-1.22 [facility] Comment on above: Order Comment: Speci men Type: BLOOD SPECIMENOrdering Facility: [facility] Address: [address] [place] [address] Performed By: #### 1 9123-9, 2776-05, ####[facility]PITALIA [id number] [address] ESTIMATED GLOMERULAR FILTRATION RATE 98 mL/min/1.73m??? Normal >=60 [facility] Comment on above: Order Comment: Speci men Type: BLOOD SPECIMENOrdering Facility: [facility] Address: [address] [place] [address] Result Comment: Luzmaria mated Glomerular Filtration Rate [...] GFR. Performed By: #### 1 9123-9, 2777, ####[facility] LABORATORYCLIA [id number] [place] [address] [address] [place] Glucose [Mass/Vol] 118 mg/dL High 74-99 [facility] Comment on above: Order Comment: Speci men Type: BLOOD SPECIMENOrdering Facility: [facility] Address: [address] [phone] Result Comment: The [place] [employer] (ADA) provides guidance for cutoff [...] Standards of Medical Care in Diabetes 2016, [place] [employer]. Diabetes Care. 2016.39(Suppl 1). Performed By: #### 1 9123-9, 2777-, 05995-0 ####[facility] LABORATORYCLIA [id number] [place] [address] [place] Potassium [Moles/Vol] 3.6 mmol/L Low 3.7-5.1 [facility] Comment on above: Order Comment: Speci men Type: BLOOD SPECIMENOrdering Facility: [facility] Address: [address] Performed By: #### 1 9123-9, 2777-, 06037-7 ####[facility] LABORATORYCLIA [id number] [place] [address] [place] Sodium [Moles/Vol] 140 mmol/L Normal 136-144 [facility] Comment on above: Order Comment: Speci men Type: BLOOD SPECIMENOrdering Facility: [facility] Address: [address] [phone] Performed By: #### 1 9123-9, 2777, 29673-1 ####[facility] LABORATORYCLIA [id number] [address] [place] Urea nitrogen [Mass/Vol] 15 mg/dL Normal 9-24 [facility] Comment on above: Order Comment: Speci men Type: BLOOD SPECIMENOrdering Facility: [facility] Address: [address] [place] [address] Performed By: #### 1 9123-9, 2777-1, 06727-4 ####[facility] LABORATORYCLIA [id number] [address] [place] CASE MANAGEMon 07-13-2021 CASE MANAGEM Normal [facility] CBC panel Auto (Bld)on 07-13 Erythrocyte distribution width (RBC) [Ratio] 16.2 % High 11.5-15.0 [facility] Comment on above: Order Comment: Speci men Type: BLOOD SPECIMENOrdering Facility: [facility] Address: [address] [place] [address] Performed By: #### 5 8410-2 ####[facility] LABORATORYCLIA [id number] [address] [place] Hematocrit (Bld) [Volume fraction] 29.5 % Low 39.0-51.0 [facility] Comment on above: Order Comment: Speci men Type: BLOOD SPECIMENOrdering Facility: [facility] Address: [address] [place] [address] Performed By: #### 5 8410-2 ####[facility] LABORATORYCLIA [id number] [address] [place] Hemoglobin (Bld) [Mass/Vol] 8.9 g/dL Low 13.0-17.0 [facility] Comment on above: Order Comment: Speci men Type: BLOOD SPECIMENOrdering Facility: [facility] Address: [address] [place] [address] Performed By: #### 5 8410-2 ####[facility] LABORATORYCLIA [id number] [address] [place] MCH (RBC) [Entitic mass] 27.8 pg Normal 26.0-34.0 [facility] Comment on above: Order Comment: Speci men Type: BLOOD SPECIMENOrdering Facility: [facility] Address: [address] [place] [address] Performed By: #### 5 8410-2 ####[facility] LABORATORYCLIA [id number] [address] STATES [facility] MCHC (RBC) [Mass/Vol] 30.2 g/dL Low 30.5-36.0 [facility] Comment on above: Order Comment: Speci men Type: BLOOD SPECIMENOrdering Facility: [facility] Address: [address] [place] [address] Performed By: #### 5 8410-2 ####[facility] LABORATORYCLIA [id number] [address] [place] MCV (RBC) [Entitic vol] 92.2 fL Normal 80.0-100.0 [facility] Comment on above: Order Comment: Speci men Type: BLOOD SPECIMENOrdering Facility: [facility] Address: [address] [place] [address] Performed By: #### 5 8410-2 ####[facility] LABORATORYCLIA [id number] [address] [place] Nucleated RBC (Bld) [#/Vol] 10*3/uL Normal <0.01 [facility] Comment on above: Order Comment: Speci men Type: BLOOD SPECIMENOrdering Facility: [facility] Address: [address] [place] [address] Performed By: #### 5 8410-2 ####[facility] LABORATORYCLIA [id number] [address] [place] Platelet mean volume (Bld) [Entitic vol] 9.8 fL Normal 9.0-12.7 [facility] Comment on above: Order Comment: Speci men Type: BLOOD SPECIMENOrdering Facility: [facility] Address: [address] [place] [address] Performed By: #### 5 8410-2 ####[facility] LABORATORYCLIA [id number] [address] [place] Platelets (Bld) [#/Vol] 356 10*3/uL Normal 150-400 [facility] Comment on above: Order Comment: Speci men Type: BLOOD SPECIMENOrdering Facility: [facility] Address: [address] [place] [address] Performed By: #### 5 8410-2 ####[facility] LABORATORYCLIA [id number] [address] [place] [facility] RBC (Bld) [#/Vol] 3.20 10*6/uL Low 4.20-6.00 [facility] Comment on above: Order Comment: Speci men Type: BLOOD SPECIMENOrdering Facility: [facility] Address: [address] [place] [address] Performed By: #### 5 8410-2 ####[facility] LABORATORYCLIA [id number] [address] OF [facility] WBC (Bld) [#/Vol] 9.20 10*3/uL Normal 3.70-11.00 [facility] Comment on above: Order Comment: Speci men Type: BLOOD SPECIMENOrdering Facility: [facility] Address: [address] [place] [address] Performed By: #### 5 8410-2 ####[facility] LABORATORYCLIA [id number] [address] OF [facility] CONSULT PROGon 07-13-2021 CONSULT PROG Normal [facility] CONSULT PROG Normal [facility] CONSULT PROG Normal [facility] Magnesium SerPl-mCncon 07-13 Magnesium [Mass/Vol] 2.1 mg/dL Normal 1.7-2.3 [facility] Comment on above: Order Comment: Speci men Type: BLOOD SPECIMENOrdering Facility: [facility] Address: [address] [place] [address] Performed By: #### 1 9123-9, 2777-1, 00950-1 ####[facility] LABORATORYCLIA [id number] [address] [place] Phosphate SerPl-mCncon 07-13 Phosphate [Mass/Vol] 3.7 mg/dL Normal 2.7-4.8 [facility] Comment on above: Order Comment: Speci men Type: BLOOD SPECIMENOrdering Facility: [facility] Address: [address] [place] [address] Performed By: #### 1 9123-9, 2777-1, 21035-2 ####[facility] LABORATORYCLIA [id number] [address] OF [facility] THERAPY NTon 07-13-2021 THERAPY NT Normal [facility] THERAPY NT Normal [facility] Vancomycin random [Mass/Vol] on 07-13-2021 Vancomycin [Mass/Vol] 31.7 ug/mL High 10.0-20.0 [facility] Comment on above: Order Comment: Speci men Type: BLOOD SPECIMENOrdering Facility: [facility] Address: [address] [place] [address] Result Comment: Refe rence ranges and high/low indicator flags are provided as general guidelines only. The treating physician must determine appropriate target levels/dosing based on the specific clinical situation. Performed By: #### 4 091-5 ####[facility] LABORATORYCLIA [id number] [address] aPTT PPPon 07-13-2021 aPTT Coag (PPP) [Time] 47.3 s High 23.0-32.4 [facility] Comment on above: Order Comment: Speci men Type: BLOOD SPECIMENOrdering Facility: [facility] Address: [address] [place] [address] Performed By: #### 1 4979-9 ####[facility] LABORATORYCLIA [id number] [address] aPTT Coag (PPP) [Time] 51.2 s High 23.0-32.4 [facility] Comment on above: Order Comment: Speci men Type: BLOOD SPECIMENOrdering Facility: [facility] Address: [address] [place] [address] Performed By: #### 1 4979-9 ####[facility] SERVICES LABORATORYCLIA [id number] [place] [address] [place] aPTT Coag (PPP) [Time] 47.5 s High 23.0-32.4 [facility] Comment on above: Order Comment: Speci men Type: BLOOD SPECIMENOrdering Facility: [facility] Address: [address] [place] [address] Performed By: #### 1 4979-9 ####[facility] SERVICES LABORATORYCLIA [id number] [place] [address] [place] Basic metabolic 2000 panelon 07-12-2021 Anion gap [Moles/Vol] 7 mmol/L Low 9-18 [facility] Comment on above: Order Comment: Speci men Type: BLOOD SPECIMENOrdering Facility: [facility] Address: [address] [place] [address] Performed By: #### 1 9123-9, 2777-1, 29419-2 ####[facility] LABORATORYCLIA [id number] [place] [address] [place] Calcium [Mass/Vol] 8.3 mg/dL Low 8.5-10.2 [facility] Comment on above: Order Comment: Speci men Type: BLOOD SPECIMENOrdering Facility: [facility] Address: [address] [place] [address] Performed By: #### 1 9123-9, 2777-1, 16929-7 ####[facility] SERVICES LABORATORYCLIA [id number] [place] [address] [place] Chloride [Moles/Vol] 101 mmol/L Normal 97-105 [facility] Comment on above: Order Comment: Speci men Type: BLOOD SPECIMENOrdering Facility: [facility] Address: [address] [place] [address] Performed By: #### 1 9123-9, 2777-1, 01657-9 ####[facility] LABORATORYCLIA [id number] [place] [address] [place] CO2 [Moles/Vol] 32 mmol/L High 22-30 [facility] Comment on above: Order Comment: Speci men Type: BLOOD SPECIMENOrdering Facility: [facility] Address: [address] [place] [address] Performed By: #### 1 9123-9, 27711-04, 40026-8 ####[facility] SERVICES LABORATORYCLIA [id number] [place] [id number] [place] Creatinine [Mass/Vol] 0.70 mg/dL Low 0.73-1.22 [facility] Comment on above: Order Comment: Speci men Type: BLOOD SPECIMENOrdering Facility: [facility] Address: [address] [place] [address] Performed By: #### 1 9123-9, 2776-05, ####[facility] SERVICESCLIA [id number] [place] [address] [place] ESTIMATED GLOMERULAR FILTRATION RATE 100 mL/min/1.73m??? Normal >=60 [facility] Comment on above: Order Comment: Speci men Type: BLOOD SPECIMENOrdering Facility: [facility] Address: [address] [place] [address] Result Comment: Luzmaria mated Glomerular Filtration Rate [...] GFR. Performed By: #### 1 9123-9, 27711-04, 28465-5 ####[facility] SERVICES LABORATORYCLIA [id number] [place] [address] [place] Glucose [Mass/Vol] 104 mg/dL High 74-99 [facility] Comment on above: Order Comment: Speci men Type: BLOOD SPECIMENOrdering Facility: [facility] Address: [address] [place] [address] Result Comment: The [place] Diabetes [employer] (ADA) provides guidance for cutoff [...] Standards of Medical Care in Diabetes 2016, [place] [employer]. Diabetes Care. 2016.39(Suppl 1). Performed By: #### 1 9123-9, 2777-1, 73007-0 ####[facility] LABORATORYCLIA [id number] [place] [address] [place] Potassium [Moles/Vol] 3.7 mmol/L Normal 3.7-5.1 [facility] Comment on above: Order Comment: Johni men Type: BLOOD SPECIMENOrdering Facility: [facility] Address: [address] [place] [address] Performed By: #### 1 9123-9, 2777, 91914-4 ####[facility] LABORATORYCLIA [id number] [place] [address] [place] Sodium [Moles/Vol] 140 mmol/L Normal 136-144 [facility] Comment on above: Order Comment: Shira feldman Type: BLOOD SPECIMENOrdering Facility: [facility] Address: [address] [address] Performed By: #### 1 9123-9, 2777-, 64976-9 ####[facility] LABORATORYCLIA [id number] [place] [address] [place] Urea nitrogen [Mass/Vol] 12 mg/dL Normal 9-24 [facility] Comment on above: Order Comment: Shira men Type: BLOOD SPECIMENOrdering Facility: [facility] Address: [address] [address] Performed By: #### 1 9123-9, 2777, 18320-2 ####[facility] LABORATORYCLIA [id number] [address] STATES [facility] CBC panel Auto (Bld)on 07-12 Erythrocyte distribution width (RBC) [Ratio] 16.1 % High 11.5-15.0 [facility] Comment on above: Order Comment: Speci men Type: BLOOD SPECIMENOrdering Facility: [facility] Address: [address] [place] [address] Performed By: #### 5 8410-2 ####[facility] LABORATORYCLIA [id number] [address] Hematocrit (Bld) [Volume fraction] 28.2 % Low 39.0-51.0 [facility] Comment on above: Order Comment: Speci men Type: BLOOD SPECIMENOrdering Facility: [facility] Address: [address] [place] [address] Performed By: #### 5 8410-2 ####[facility] SERVICES LABORATORYCLIA [id number] [address] Hemoglobin (Bld) [Mass/Vol] 8.5 g/dL Low 13.0-17.0 [facility] Comment on above: Order Comment: Speci men Type: BLOOD SPECIMENOrdering Facility: [facility] Address: [address] [place] [address] Performed By: #### 5 8410-2 ####[facility] LABORATORYCLIA [id number] [address] STATES [facility] MCH (RBC) [Entitic mass] 26.8 pg Normal 26.0-34.0 [facility] Comment on above: Order Comment: Speci men Type: BLOOD SPECIMENOrdering Facility: [facility] Address: [address] [place] [address] Performed By: #### 5 8410-2 ####[facility] LABORATORYCLIA [id number] [address] [place] MCHC (RBC) [Mass/Vol] 30.1 g/dL Low 30.5-36.0 [facility] Comment on above: Order Comment: Speci men Type: BLOOD SPECIMENOrdering Facility: [facility] Address: [address] [place] [address] Performed By: #### 5 8410-2 ####[facility] LABORATORYCLIA [id number] [address] [place] MCV (RBC) [Entitic vol] 89.0 fL Normal 80.0-100.0 [facility] Comment on above: Order Comment: Speci men Type: BLOOD SPECIMENOrdering Facility: [facility] Address: [address] [place] [address] Performed By: #### 5 8410-2 ####[facility] LABORATORYCLIA [id number] [address] [place] Nucleated RBC (Bld) [#/Vol] 10*3/uL Normal <0.01 [facility] Comment on above: Order Comment: Speci men Type: BLOOD SPECIMENOrdering Facility: [facility] Address: [address] [place] [address] Performed By: #### 5 8410-2 ####[facility] LABORATORYCLIA [id number] [address] [place] Platelet mean volume (Bld) [Entitic vol] 9.6 fL Normal 9.0-12.7 [facility] Comment on above: Order Comment: Speci men Type: BLOOD SPECIMENOrdering Facility: [facility] Address: [address] [place], [place] [address] Performed By: #### 5 8410-2 ####[facility] LABORATORYCLIA [id number] [address] [place] Platelets (Bld) [#/Vol] 340 10*3/uL Normal 150-400 [facility] Comment on above: Order Comment: Speci men Type: BLOOD SPECIMENOrdering Facility: [facility] Address: [address] [place] [address] Performed By: #### 5 8410-2 ####[facility] LABORATORYCLIA [id number] [address] OF [facility] RBC (Bld) [#/Vol] 3.17 10*6/uL Low 4.20-6.00 [facility] Comment on above: Order Comment: Speci men Type: BLOOD SPECIMENOrdering Facility: [facility] Address: [address] [place] [address] Performed By: #### 5 8410-2 ####[facility] LABORATORYCLIA [id number] [address] WBC (Bld) [#/Vol] 8.66 10*3/uL Normal 3.70-11.00 [facility] Comment on above: Order Comment: Speci men Type: BLOOD SPECIMENOrdering Facility: [facility] Address: [address] [place] [address] Performed By: #### 5 8410-2 ####[facility] LABORATORYCLIA [id number] [address] CONSULTon 07-12-2021 CONSULT Normal [facility] CONSULT PROGon 07-12-2021 CONSULT PROG Normal [facility] Magnesium SerPl-mCncon 07-12 Magnesium [Mass/Vol] 2.1 mg/dL Normal 1.7-2.3 [facility] Comment on above: Order Comment: Speci men Type: BLOOD SPECIMENOrdering Facility: [facility] Address: [address] [place] [address] Performed By: #### 1 9123-9, 2777-1, 77737-6 ####[facility] LABORATORYCLIA [id number] [address] NURSING PROGon 07-12-2021 NURSING PROG Normal [facility] Phosphate SerPl-mCncon 07-12 Phosphate [Mass/Vol] 3.1 mg/dL Normal 2.7-4.8 [facility] Comment on above: Order Comment: Speci men Type: BLOOD SPECIMENOrdering Facility: [facility] Address: [address] [place] [address] Performed By: #### 1 9123-9, 2777-1, 22712-9 ####[facility] LABORATORYCLIA [id number] [address] STATES OF [facility] THERAPY NTon 07-12-2021 THERAPY NT Normal [facility] aPTT PPPon 07-12-2021 aPTT Coag (PPP) [Time] 49.5 s High 23.0-32.4 [facility] Comment on above: Order Comment: Speci men Type: BLOOD SPECIMENOrdering Facility: [facility] Address: [address] [place] [address] Performed By: #### 1 4979-9 ####[facility] LABORATORYCLIA [id number] [address] aPTT Coag (PPP) [Time] 68.0 s High 23.0-32.4 [facility] Comment on above: Order Comment: Speci men Type: BLOOD SPECIMENOrdering Facility: [facility] Address: [address] [place] [address] Performed By: #### 1 4979-9 ####[facility] LABORATORYCLIA [id number] [address] aPTT Coag (PPP) [Time] 80.0 s High 23.0-32.4 [facility] Comment on above: Order Comment: Speci men Type: BLOOD SPECIMENOrdering Facility: [facility] Address: [address] [place] [address] Performed By: #### 1 4979-9 ####[facility] LABORATORYCLIA [id number] [address] [place] CASE MGT INIT ASSESon 2021 CASE MGT INIT ASSES Normal [facility] CBC panel Auto (Bld)on 07-11 Erythrocyte distribution width (RBC) [Ratio] 16.3 % High 11.5-15.0 [facility] Comment on above: Order Comment: Speci men Type: BLOOD SPECIMENOrdering Facility: [facility] Address: [address] [place] [address] Performed By: #### 5 8410-2 ####[facility] LABORATORYCLIA [id number] [address] Hematocrit (Bld) [Volume fraction] 28.3 % Low 39.0-51.0 [facility] Comment on above: Order Comment: Speci men Type: BLOOD SPECIMENOrdering Facility: [facility] Address: [address] [place] [address] Performed By: #### 5 8410-2 ####[facility] LABORATORYCLIA [id number] [address] Hemoglobin (Bld) [Mass/Vol] 8.8 g/dL Low 13.0-17.0 [facility] Comment on above: Order Comment: Speci men Type: BLOOD SPECIMENOrdering Facility: [facility] Address: [address] [place] [address] Performed By: #### 5 8410-2 ####[facility] LABORATORYCLIA [id number] [address] MCH (RBC) [Entitic mass] 27.4 pg Normal 26.0-34.0 [facility] Comment on above: Order Comment: Speci men Type: BLOOD SPECIMENOrdering Facility: [facility] Address: [address] [place] [address] Performed By: #### 5 8410-2 ####[facility] LABORATORYCLIA [id number] [address] [place] MCHC (RBC) [Mass/Vol] 31.1 g/dL Normal 30.5-36.0 [facility] Comment on above: Order Comment: Speci men Type: BLOOD SPECIMENOrdering Facility: [facility] Address: [address] [place] [address] Performed By: #### 5 8410-2 ####[facility] LABORATORYCLIA [id number] [address] [place] MCV (RBC) [Entitic vol] 88.2 fL Normal 80.0-100.0 [facility] Comment on above: Order Comment: Speci men Type: BLOOD SPECIMENOrdering Facility: [facility] Address: [address] [place] [address] Performed By: #### 5 8410-2 ####[facility] LABORATORYCLIA [id number] [address] Nucleated RBC (Bld) [#/Vol] 10*3/uL Normal <0.01 [facility] Comment on above: Order Comment: Speci men Type: BLOOD SPECIMENOrdering Facility: [facility] Address: [address] [place] [address] Performed By: #### 5 8410-2 ####[facility] LABORATORYCLIA [id number] [address] OF [facility] Platelet mean volume (Bld) [Entitic vol] 9.7 fL Normal 9.0-12.7 [facility] Comment on above: Order Comment: Speci men Type: BLOOD SPECIMENOrdering Facility: [facility] Address: [address] [place] [address] Performed By: #### 5 8410-2 ####[facility] LABORATORYCLIA [id number] [address] Platelets (Bld) [#/Vol] 315 10*3/uL Normal 150-400 [facility] Comment on above: Order Comment: Speci men Type: BLOOD SPECIMENOrdering Facility: [facility] Address: [address] [place] [address] Performed By: #### 5 8410-2 ####[facility] LABORATORYCLIA [id number] [address] RBC (Bld) [#/Vol] 3.21 10*6/uL Low 4.20-6.00 [facility] Comment on above: Order Comment: Speci men Type: BLOOD SPECIMENOrdering Facility: [facility] Address: [address] [address] Performed By: #### 5 8410-2 ####[facility] LABORATORYCLIA [id number] [address] [place] WBC (Bld) [#/Vol] 9.18 10*3/uL Normal 3.70-11.00 [facility] Comment on above: Order Comment: Speci men Type: BLOOD SPECIMENOrdering Facility: [facility] Address: [address] [place] [address] Performed By: #### 5 8410-2 ####[facility] LABORATORYCLIA [id number] [address] OF [facility] CONSULT PROGon 07-11-2021 CONSULT PROG Normal [facility] CT BRAIN WO IVCONon 07-12-[address] BRAIN WO IVCON [facility] Magnesium SerPl-mCncon 07-11 Magnesium [Mass/Vol] 2.1 mg/dL Normal 1.7-2.3 [facility] Comment on above: Order Comment: Speci men Type: BLOOD SPECIMENOrdering Facility: [facility] Address: [address] [place] [address] Performed By: #### 1 9123-9, 2777-1 ####[facility] LABORATORYCLIA [id number] [address] NURSING PROGon 07-11-2021 NURSING PROG Normal [facility] NURSING PROG Normal [facility] Phosphate SerPl-mCncon 07-11 Phosphate [Mass/Vol] 3.4 mg/dL Normal 2.7-4.8 [facility] Comment on above: Order Comment: Speci men Type: BLOOD SPECIMENOrdering Facility: [facility] Address: [address] [place], [place] [address] [address] Performed By: #### 1 9123-9, 2777-1 ####[facility] LABORATORYCLIA [id number] [address] [place] THERAPY NTon 07-11-2021 THERAPY NT Normal [facility] Vancomycin random [Mass/Vol] on 07-11-2021 Vancomycin [Mass/Vol] 28.6 ug/mL High 10.0-20.0 [facility] Comment on above: Order Comment: Speci men Type: BLOOD SPECIMENOrdering Facility: [facility] Address: [address] [place] [address] Result Comment: Refe rence ranges and high/low indicator flags are provided as general guidelines only. The treating physician must determine appropriate target levels/dosing based on the specific clinical situation. Performed By: #### 4 091-5 ####[facility] LABORATORYCLIA [id number] [address] aPTT PPPon 07-11-2021 aPTT Coag (PPP) [Time] 62.0 s High 23.0-32.4 [facility] Comment on above: Order Comment: Speci men Type: BLOOD SPECIMENOrdering Facility: [facility] Address: [address] [place] [address] Performed By: #### 1 4979-9 ####[facility] LABORATORYCLIA [id number] [address] aPTT Coag (PPP) [Time] 52.7 s High 23.0-32.4 [facility] Comment on above: Order Comment: Speci men Type: BLOOD SPECIMENOrdering Facility: [facility] Address: [address] [place] [address] Performed By: #### 1 4979-9 ####[facility] LABORATORYCLIA [id number] [address] STATES [facility] aPTT Coag (PPP) [Time] 29.9 s Normal 23.0-32.4 [facility] Comment on above: Order Comment: Speci men Type: BLOOD SPECIMENOrdering Facility: [facility] Address: [address] [place] [address] Performed By: #### 1 4979-9 ####[facility] LABORATORYCLIA [id number] [address] Basic metabolic 2000 panelon 07-10-2021 Anion gap [Moles/Vol] 14 mmol/L Normal 9-18 [facility] Comment on above: Order Comment: Speci men Type: BLOOD SPECIMENOrdering Facility: [facility] Address: [address] [place] [address] Performed By: #### 1 9123-9, 2777-1, 05161-8 ####[facility] LABORATORYCLIA [id number] [place] [address] [place] Calcium [Mass/Vol] 8.5 mg/dL Normal 8.5-10.2 [facility] Comment on above: Order Comment: Speci men Type: BLOOD SPECIMENOrdering Facility: [facility] Address: [address] [place] [address] Performed By: #### 1 9123-9, 2777-1, 52348-8 ####[facility] LABORATORYCLIA [id number] [address] STATES [facility] Chloride [Moles/Vol] 100 mmol/L Normal 97-105 [facility] Comment on above: Order Comment: Speci men Type: BLOOD SPECIMENOrdering Facility: [facility] Address: [address] [place] [address] Performed By: #### 1 9123-9, 2777-1, 50433-8 ####[facility] LABORATORYCLIA [id number] [place] [address] [place] CO2 [Moles/Vol] 27 mmol/L Normal 22-30 [facility] Comment on above: Order Comment: Speci men Type: BLOOD SPECIMENOrdering Facility: [facility] Address: [address] [place] [address] Performed By: #### 1 9123-9, 2777-1, 65172-7 ####[facility] LABORATORYCLIA [id number] [place] [address] [place] Creatinine [Mass/Vol] 0.66 mg/dL Low 0.73-1.22 [facility] Comment on above: Order Comment: Johncara feldman Type: BLOOD SPECIMENOrdering Facility: [facility] Address: [address] [id number] Performed By: #### 1 9123-9, 2777-1, 77924-7 ####[facility] SERVICESCLIA [id number] [place] [address] [place] ESTIMATED GLOMERULAR FILTRATION RATE 102 mL/min/1.73m??? Normal >=60 [facility] Comment on above: Order Comment: Shira francia Type: BLOOD SPECIMENOrdering Facility: [facility] Address: [address] Result Comment: Luzmaria mated Glomerular Filtration [...] GFR. Performed By: #### 1 9123-9, 2777-1, 11374-8 ####[facility] LABORATORYIA [id number] [place] [address] [place] Glucose [Mass/Vol] 93 mg/dL Normal 74-99 [facility] Comment on above: Order Comment: Shira feldman Type: BLOOD SPECIMENOrdering Facility: [facility] Address: [address] [place] [address] Result Comment: The [place] [employer] (ADA) provides guidance for cutoff [...] Standards of Medical Care in Diabetes 2016, [place] [employer]. Diabetes Care. 2016.39(Suppl 1). Performed By: #### 1 9123-9, 2777-1, 92620-9 ####[facility] LABORATORYCLIA [id number] [address] [place] Potassium [Moles/Vol] 3.5 mmol/L Low 3.7-5.1 [facility] Comment on above: Order Comment: Speci men Type: BLOOD SPECIMENOrdering Facility: [facility] Address: [address] [place] [address] Performed By: #### 1 9123-9, 2777-, 11198-1 ####[facility] SERVICESCLIA [id number] [address] [place] [facility] Sodium [Moles/Vol] 141 mmol/L Normal 136-144 [facility] Comment on above: Order Comment: Speci men Type: BLOOD SPECIMENOrdering Facility: [facility] Address: [address] [place] [address] Performed By: #### 1 9123-9, 2777-, 57213-7 ####[facility] SERVICESCLIA [id number] [address] [place] [facility] Urea nitrogen [Mass/Vol] 11 mg/dL Normal 9-24 [facility] Comment on above: Order Comment: Speci men Type: BLOOD SPECIMENOrdering Facility: [facility] Address: [address] [place] [address] Performed By: #### 1 9123-9, 2777-, 48388-2 ####[facility] LABORATORYCLIA [id number] [address] [place] CBC panel Auto (Bld)on 07-10 Erythrocyte distribution width (RBC) [Ratio] 16.2 % High 11.5-15.0 [facility] Comment on above: Order Comment: Speci men Type: BLOOD SPECIMENOrdering Facility: [facility] Address: [address] [place] [address] Performed By: #### 5 8410-2 ####[facility] LABORATORYCLIA [id number] [address] Hematocrit (Bld) [Volume fraction] 30.6 % Low 39.0-51.0 [facility] Comment on above: Order Comment: Speci men Type: BLOOD SPECIMENOrdering Facility: [facility] Address: [address] [place] [address] Performed By: #### 5 8410-2 ####[facility] LABORATORYCLIA [id number] [address] Hemoglobin (Bld) [Mass/Vol] 9.6 g/dL Low 13.0-17.0 [facility] Comment on above: Order Comment: Speci men Type: BLOOD SPECIMENOrdering Facility: [facility] Address: [address] [place] [address] Performed By: #### 5 8410-2 ####[facility] LABORATORYCLIA [id number] [address] MCH (RBC) [Entitic mass] 28.3 pg Normal 26.0-34.0 [facility] Comment on above: Order Comment: Speci men Type: BLOOD SPECIMENOrdering Facility: [facility] Address: [address] [place] [address] Performed By: #### 5 8410-2 ####[facility] LABORATORYCLIA [id number] [address] [place] MCHC (RBC) [Mass/Vol] 31.4 g/dL Normal 30.5-36.0 [facility] Comment on above: Order Comment: Speci men Type: BLOOD SPECIMENOrdering Facility: [facility] Address: [address] [place] [address] Performed By: #### 5 8410-2 ####[facility] LABORATORYCLIA [id number] [address] MCV (RBC) [Entitic vol] 90.3 fL Normal 80.0-100.0 [facility] Comment on above: Order Comment: Speci men Type: BLOOD SPECIMENOrdering Facility: [facility] Address: [address] Performed By: #### 5 8410-2 ####[facility] LABORATORYCLIA [id number] [address] Nucleated RBC (Bld) [#/Vol] 10*3/uL Normal <0.01 [facility] Comment on above: Order Comment: Speci men Type: BLOOD SPECIMENOrdering Facility: [facility] Address: [address] [place] [address] Performed By: #### 5 8410-2 ####[facility] LABORATORYCLIA [id number] [address] Platelet mean volume (Bld) [Entitic vol] 9.7 fL Normal 9.0-12.7 [facility] Comment on above: Order Comment: Speci men Type: BLOOD SPECIMENOrdering Facility: [facility] Address: [address] [place] [address] Performed By: #### 5 8410-2 ####[facility] LABORATORYCLIA [id number] [address] Platelets (Bld) [#/Vol] 306 10*3/uL Normal 150-400 [facility] Comment on above: Order Comment: Speci men Type: BLOOD SPECIMENOrdering Facility: [facility] Address: [address] [place], [place] [address] Performed By: #### 5 8410-2 ####[facility] LABORATORYCLIA [id number] [address] [place] RBC (Bld) [#/Vol] 3.39 10*6/uL Low 4.20-6.00 [facility] Comment on above: Order Comment: Speci men Type: BLOOD SPECIMENOrdering Facility: [facility] Address: [address] [place] [address] Performed By: #### 5 8410-2 ####[facility] LABORATORYCLIA [id number] [address] [place] WBC (Bld) [#/Vol] 9.81 10*3/uL Normal 3.70-11.00 [facility] Comment on above: Order Comment: Speci men Type: BLOOD SPECIMENOrdering Facility: [facility] Address: [address] [place] [address] Performed By: #### 5 8410-2 ####[facility] LABORATORYCLIA [id number] [address] [place] CONSULTon 07-10-2021 CONSULT Normal [facility] CONSULT Normal [facility] Magnesium SerPl-mCncon 07-10 Magnesium [Mass/Vol] 1.9 mg/dL Normal 1.7-2.3 [facility] Comment on above: Order Comment: Speci men Type: BLOOD SPECIMENOrdering Facility: [facility] Address: [address] [place] [address] Performed By: #### 1 9123-9, 2777-1, 17322-8 ####[facility] LABORATORYCLIA [id number] [address] [place] NURSING PROGon 07-10-2021 NURSING PROG Normal [facility] NURSING PROG Normal [facility] NUTRITIONon 07-10-2021 NUTRITION Normal [facility] Phosphate SerPl-mCncon 07-10 Phosphate [Mass/Vol] 3.6 mg/dL Normal 2.7-4.8 [facility] Comment on above: Order Comment: Speci men Type: BLOOD SPECIMENOrdering Facility: [facility] Address: [address] [place] [address] Performed By: #### 1 9123-9, 2777-1, 49379-5 ####[facility] LABORATORYCLIA [id number] [address] [place] US DVT LOWER BILon US DVT LOWER RAINER Normal [facility] aPTT PPPon 07-10-2021 aPTT Coag (PPP) [Time] 28.8 s Normal 23.0-32.4 [facility] Comment on above: Order Comment: Speci men Type: BLOOD SPECIMENOrdering Facility: [facility] Address: [address] [place] [address] Performed By: #### 1 4979-9 ####[facility] LABORATORYCLIA [id number] [place] [address] [place] aPTT Coag (PPP) [Time] 28.4 s Normal 23.0-32.4 [facility] Comment on above: Order Comment: Speci men Type: BLOOD SPECIMENOrdering Facility: [facility] Address: [address] [place] [address] Performed By: #### 1 4979-9 ####[facility] LABORATORYCLIA [id number] [address] [place] ALLIED HEALTHon 07-09-2021 ALLIED HEALTH Normal [facility] Basic metabolic 2000 panelon 07-09-2021 Anion gap [Moles/Vol] 9 mmol/L Normal 9-18 [facility] Comment on above: Order Comment: Speci men Type: BLOOD SPECIMENOrdering Facility: [facility] Address: [address] [place] [address] Performed By: #### 1 9123-9, 2777-1, 34930-9 ####[facility] SERVICESCLIA [id number] [place] [address] [place] Calcium [Mass/Vol] 8.3 mg/dL Low 8.5-10.2 [facility] Comment on above: Order Comment: Speci men Type: BLOOD SPECIMENOrdering Facility: [facility] Address: [address] [place] [address] Performed By: #### 1 9123-9, 2777-1, 29284-7 ####[facility] LABORATORYCLIA [id number] [place] [address] [place] Chloride [Moles/Vol] 100 mmol/L Normal 97-105 [facility] Comment on above: Order Comment: Speci men Type: BLOOD SPECIMENOrdering Facility: [facility] Address: [address] [place] [address] Performed By: #### 1 9123-9, 2777, 95925-4 ####[facility] SERVICESCLIA [id number] [address] STATES [place] [facility] CO2 [Moles/Vol] 29 mmol/L Normal 22-30 [facility] Comment on above: Order Comment: Speci men Type: BLOOD SPECIMENOrdering Facility: [facility] Address: [address] [place] [address] Performed By: #### 1 9123-9, 27711-04, 75958-8 ####[facility] LABORATORYCLIA [id number] [address] OF [facility] Creatinine [Mass/Vol] 0.61 mg/dL Low 0.73-1.22 [facility] Comment on above: Order Comment: Speci men Type: BLOOD SPECIMENOrdering Facility: [facility] Address: [address] [place] [address] Performed By: #### 1 9123-9, 27711-04, 96598-3 ####[facility] HOSPITALIA [id number] [address] ESTIMATED GLOMERULAR FILTRATION RATE 104 mL/min/1.73m??? Normal >=60 [facility] Comment on above: Order Comment: Speci men Type: BLOOD SPECIMENOrdering Facility: [facility] Address: [address] [place] [address] Result Comment: Luzmaria mated Glomerular Filtration Rate [...] GFR. Performed By: #### 1 9123-9, 2777-1, 92920-2 ####[facility] LABORATORYCLIA [id number] [place] [address] [place] Glucose [Mass/Vol] 106 mg/dL High 74-99 [facility] Comment on above: Order Comment: Shira feldman Type: BLOOD SPECIMENOrdering Facility: [facility] Address: [address] [place], [place] [address] Result Comment: The [place] [employer] (ADA) provides guidance for cutoff [...] Standards of Medical Care in Diabetes 2016, [place] [employer]. Diabetes Care. 2016.39(Suppl 1). Performed By: #### 1 9123-9, 2777-, 31738-6 ####[facility] LABORATORYCLIA [id number] [place] [address] [place] Potassium [Moles/Vol] 3.6 mmol/L Low 3.7-5.1 [facility] Comment on above: Order Comment: Shira feldman Type: BLOOD SPECIMENOrdering Facility: [facility] Address: [address] [place], [place] [address] Performed By: #### 1 9123-9, 2777-, 06110-1 ####[facility] LABORATORYCLIA [id number] [place] [address] [place] Sodium [Moles/Vol] 138 mmol/L Normal 136-144 [facility] Comment on above: Order Comment: Shira feldman Type: BLOOD SPECIMENOrdering Facility: [facility] Address: [address] [place], [place] [address] Performed By: #### 1 9123-9, 2777-, 18281-1 ####[facility] LABORATORYCLIA [id number] [place] [address] [place] Urea nitrogen [Mass/Vol] 12 mg/dL Normal 9-24 [facility] Comment on above: Order Comment: Speci men Type: BLOOD SPECIMENOrdering Facility: [facility] Address: [address] [place] [address] Performed By: #### 1 9123-9, 2777-1, 72876-1 ####[facility] LABORATORYCLIA [id number] [address] CBC panel Auto (Bld)on 07-09 Erythrocyte distribution width (RBC) [Ratio] 16.2 % High 11.5-15.0 [facility] Comment on above: Order Comment: Speci men Type: BLOOD SPECIMENOrdering Facility: [facility] Address: [address] [place] [address] Performed By: #### 5 8410-2 ####[facility] LABORATORYCLIA [id number] [address] Hematocrit (Bld) [Volume fraction] 29.0 % Low 39.0-51.0 [facility] Comment on above: Order Comment: Speci men Type: BLOOD SPECIMENOrdering Facility: [facility] Address: [address] [place] [address] Performed By: #### 5 8410-2 ####[facility] LABORATORYCLIA [id number] [address] Hemoglobin (Bld) [Mass/Vol] 8.8 g/dL Low 13.0-17.0 [facility] Comment on above: Order Comment: Speci men Type: BLOOD SPECIMENOrdering Facility: [facility] Address: [address] [place] [address] Performed By: #### 5 8410-2 ####[facility] LABORATORYCLIA [id number] [address] MCH (RBC) [Entitic mass] 27.0 pg Normal 26.0-34.0 [facility] Comment on above: Order Comment: Speci men Type: BLOOD SPECIMENOrdering Facility: [facility] Address: [address] [place] [address] Performed By: #### 5 8410-2 ####[facility] LABORATORYCLIA [id number] [address] MCHC (RBC) [Mass/Vol] 30.3 g/dL Low 30.5-36.0 [facility] Comment on above: Order Comment: Speci men Type: BLOOD SPECIMENOrdering Facility: [facility] Address: [address] [place] [address] Performed By: #### 5 8410-2 ####[facility] LABORATORYCLIA [id number] [address] [place] MCV (RBC) [Entitic vol] 89.0 fL Normal 80.0-100.0 [facility] Comment on above: Order Comment: Speci men Type: BLOOD SPECIMENOrdering Facility: [facility] Address: [address] [place] [address] Performed By: #### 5 8410-2 ####[facility] LABORATORYCLIA [id number] [address] OF [facility] Nucleated RBC (Bld) [#/Vol] 10*3/uL Normal <0.01 [facility] Comment on above: Order Comment: Speci men Type: BLOOD SPECIMENOrdering Facility: [facility] Address: [address] [place] [address] Performed By: #### 5 8410-2 ####[facility] LABORATORYCLIA [id number] [address] Platelet mean volume (Bld) [Entitic vol] 9.8 fL Normal 9.0-12.7 [facility] Comment on above: Order Comment: Speci men Type: BLOOD SPECIMENOrdering Facility: [facility] Address: [address] [place] [address] Performed By: #### 5 8410-2 ####[facility] LABORATORYCLIA [id number] [address] [place] Platelets (Bld) [#/Vol] 281 10*3/uL Normal 150-400 [facility] Comment on above: Order Comment: Speci men Type: BLOOD SPECIMENOrdering Facility: [facility] Address: [address] [place] [address] Performed By: #### 5 8410-2 ####[facility] LABORATORYCLIA [id number] [address] STATES [place] [facility] RBC (Bld) [#/Vol] 3.26 10*6/uL Low 4.20-6.00 [facility] Comment on above: Order Comment: Speci men Type: BLOOD SPECIMENOrdering Facility: [facility] Address: [address] [place] [address] Performed By: #### 5 8410-2 ####[facility] LABORATORYCLIA [id number] [address] OF [facility] WBC (Bld) [#/Vol] 9.12 10*3/uL Normal 3.70-11.00 [facility] Comment on above: Order Comment: Speci men Type: BLOOD SPECIMENOrdering Facility: [facility] Address: [address] [place] [address] Performed By: #### 5 8410-2 ####[facility] LABORATORYCLIA [id number] [address] CONSULT PROGon 07-09-2021 CONSULT PROG Normal [facility] CONSULT PROG Normal [facility] HISTORY PHYSICALon HISTORY PHYSICAL Normal [facility] Magnesium SerPl-mCncon 07-09 Magnesium [Mass/Vol] 1.9 mg/dL Normal 1.7-2.3 [facility] Comment on above: Order Comment: Speci men Type: BLOOD SPECIMENOrdering Facility: [facility] Address: [address] [place] [address] Performed By: #### 1 9123-9, 2777-1, 39058-5 ####[facility] LABORATORYCLIA [id number] [address] Phosphate SerPl-mCncon 07-09 Phosphate [Mass/Vol] 3.6 mg/dL Normal 2.7-4.8 [facility] Comment on above: Order Comment: Speci men Type: BLOOD SPECIMENOrdering Facility: [facility] Address: [address] [place] [address] Performed By: #### 1 9123-9, 2777-1, 15084-5 ####[facility] LABORATORYCLIA [id number] [address] [place] THERAPY NTon 07-09-2021 THERAPY NT Normal [facility] XR ABDOMEN 1V SUPINEon 07-09 XR ABDOMEN 1V SUPINE Normal [facility] ALLIED HEALTHon 07-08-2021 ALLIED HEALTH Normal [facility] ALLIED HEALTH Normal [facility] ALLIED HEALTH Normal [facility] ANES PRE-OPon 07-08-2021 ANES PRE-OP Normal [facility] BRIEF OP NOTon 07-08-2021 BRIEF OP NOT Normal [facility] Bacteria Bld Culton 07-09-19 22 Bacteria identified Cx Nom (Bld) CULTURE, BLOOD: No growth 5 days Normal [facility] Comment on above: Performed By: #### 6 00-7 ####[facility] LABORATORYCLIA [id number] [address] [place] Bacteria identified Cx Nom (Bld) CULTURE, BLOOD: No growth 5 days Normal [facility] Comment on above: Performed By: #### 6 00-7 ####[facility] LABORATORYCLIA [id number] [place] [address] [place] Bacteria CSF Culton 07-09-19 22 Bacteria identified Cx Nom (CSF) CULTURE, CSF: No growth 14 days GRAM STAIN: No organisms seen No Polymorphonuclear Leukocytes Few Red Blood Cells Gram stain performed on cytospun specimen. [facility] Comment on above: Performed By: #### 6 06-4 ####[facility] LABORATORYCLIA [id number] [place] [address] [place] Bacteria Ur Culton 2 Bacteria identified Cx Nom (U) ORGANISM ID: 1 10,000 -<50,000 CFU/ml Proteus species Insignificant colony count. No further workup. ORGANISM ID: 2 <10,000 CFU/ml Normal urogenital chris Normal [facility] Comment on above: Performed By: #### 6 30-4 ####[facility] LABORATORYCLIA [id number] [address] STATES [place] [facility] Bacteria Wnd Culton 07-09-19 22 Bacteria identified Cx Nom (Wound) ORGANISM ID: 1 Coagulase negative staphylococcus Growth in Enrichment Broth Only No susceptibility testing done. Call lab within 72 hours to initiate work-up if clinically indicated. GRAM STAIN: Account credited. Not performed on this specimen type. Normal [facility] Comment on above: Performed By: #### 6 462-6 ####[facility] LABORATORYCLIA [id number] [address] Bacteria identified Cx Nom (Wound) ORGANISM ID: 1 Rare Coagulase negative staphylococcus No susceptibility testing done. Call lab within 72 hours to initiate work-up if clinically indicated. GRAM STAIN: Account credited. Not performed on this specimen type. Normal [facility] Comment on above: Performed By: #### 6 462-6 ####[facility] LABORATORYCLIA [id number] [address] Bacteria identified Cx Nom (Wound) CULTURE, INTRAOPERATIVE HARDWARE: No growth 14 days GRAM STAIN: Account credited. Not performed on this specimen type. Normal [facility] Comment on above: Performed By: #### 6 462-6 ####[facility] LABORATORYCLIA [id number] [address] [place] Basic metabolic 2000 panelon 07-08-2021 Anion gap [Moles/Vol] 9 mmol/L Normal 9-18 [facility] Comment on above: Order Comment: Speci men Type: BLOOD SPECIMENOrdering Facility: [facility] Address: [address] [place] [address] Performed By: #### 2 4321-2 ####[facility] LABORATORYCLIA [id number] [place] [address] [place] Calcium [Mass/Vol] 8.5 mg/dL Normal 8.5-10.2 [facility] Comment on above: Order Comment: Speci men Type: BLOOD SPECIMENOrdering Facility: [facility] Address: [address] [place] [address] Performed By: #### 2 4321-2 ####[facility] LABORATORYCLIA [id number] [place] [address] [place] Chloride [Moles/Vol] 98 mmol/L Normal 97-105 [facility] Comment on above: Order Comment: Speci men Type: BLOOD SPECIMENOrdering Facility: [facility] Address: [address] [place] [address] Performed By: #### 2 4321-2 ####[facility] LABORATORYCLIA [id number] [place] [address] [place] CO2 [Moles/Vol] 31 mmol/L High 22-30 [facility] Comment on above: Order Comment: Speci men Type: BLOOD SPECIMENOrdering Facility: [facility] Address: [address] [place] [address] Performed By: #### 2 4321-2 ####[facility] LABORATORYCLIA [id number] [address] [place] Creatinine [Mass/Vol] 0.64 mg/dL Low 0.73-1.22 [facility] Comment on above: Order Comment: Speci men Type: BLOOD SPECIMENOrdering Facility: [facility] Address: [address] [place] [address] Performed By: #### 2 4321-2 ####[facility] LABORATORYCLIA [id number] [address] ESTIMATED GLOMERULAR FILTRATION RATE 102 mL/min/1.73m??? Normal >=60 [facility] Comment on above: Order Comment: Speci men Type: BLOOD SPECIMENOrdering Facility: [facility] Address: [address] [place] [address] Result Comment: Luzmaria mated Glomerular Filtration Rate [...] actual GFR. Performed By: #### 2 4321-2 ####[facility] LABORATORYCLIA [id number] [place] [address] [place] Glucose [Mass/Vol] 114 mg/dL High 74-99 [facility] Comment on above: Order Comment: Shira feldman Type: BLOOD SPECIMENOrdering Facility: [facility] Address: [address] [place] [address] Result Comment: The [place] [employer] (ADA) provides guidance for cutoff [...] Standards of Medical Care in Diabetes 2016, [place] [employer]. Diabetes Care. 2016.39(Suppl 1). Performed By: #### 2 4321-2 ####[facility] LABORATORYCLIA [id number] [place] [address] [place] Potassium [Moles/Vol] 3.4 mmol/L Low 3.7-5.1 [facility] Comment on above: Order Comment: Shira feldman Type: BLOOD SPECIMENOrdering Facility: [facility] Address: [address] Performed By: #### 2 4321-2 ####[facility] LABORATORYCLIA [id number] [place] [id number] [place] Sodium [Moles/Vol] 138 mmol/L Normal 136-144 [facility] Comment on above: Order Comment: Speci men Type: BLOOD SPECIMENOrdering Facility: [facility] Address: [address] [place] [address] Performed By: #### 2 4321-2 ####[facility] LABORATORYCLIA [id number] [address] [place] Urea nitrogen [Mass/Vol] 14 mg/dL Normal 9-24 [facility] Comment on above: Order Comment: Speci men Type: BLOOD SPECIMENOrdering Facility: [facility] Address: [address] [place] [address] Performed By: #### 2 4321-2 ####[facility] LABORATORYCLIA [id number] [address] [place] CBC W Auto Differential pane l (Bld)on 07-08-2021 Basophils (Bld) [#/Vol] 0.05 10*3/uL Normal <0.11 [facility] Comment on above: Order Comment: Speci men Type: BLOOD SPECIMENOrdering Facility: [facility] Address: [address] [place] [address] Performed By: #### 5 7021-8 ####[facility] LABORATORYCLIA [id number] [address] [place] Basophils/100 WBC (Bld) 0.4 % Normal [facility] Comment on above: Order Comment: Speci men Type: BLOOD SPECIMENOrdering Facility: [facility] Address: [address] [place] [address] Performed By: #### 5 7021-8 ####[facility] LABORATORYCLIA [id number] [address] STATES [facility] Differential cell count method Nom (Bld) Auto Normal [facility] Comment on above: Order Comment: Speci men Type: BLOOD SPECIMENOrdering Facility: [facility] Address: [address] [place] [address] Performed By: #### 5 7021-8 ####[facility]ORATORYCLIA [id number] [address] [place] Eosinophils (Bld) [#/Vol] 0.68 10*3/uL High <0.46 [facility] Comment on above: Order Comment: Speci men Type: BLOOD SPECIMENOrdering Facility: [facility] Address: [address] [place] [address] Performed By: #### 5 7021-8 ####[facility]ORATORYCLIA [id number] [address] [place] Eosinophils/100 WBC (Bld) 5.4 % Normal [facility] Comment on above: Order Comment: Speci men Type: BLOOD SPECIMENOrdering Facility: [facility] Address: [address] [place] [address] Performed By: #### 5 7021-8 ####[facility] LABORATORYCLIA [id number] [address] Erythrocyte distribution width (RBC) [Ratio] 16.3 % High 11.5-15.0 [facility] Comment on above: Order Comment: Speci men Type: BLOOD SPECIMENOrdering Facility: [facility] Address: [address] [place] [address] Performed By: #### 5 7021-8 ####[facility] LABORATORYCLIA [id number] [address] [place] Hematocrit (Bld) [Volume fraction] 35.7 % Low 39.0-51.0 [facility] Comment on above: Order Comment: Speci men Type: BLOOD SPECIMENOrdering Facility: [facility] Address: [address] [place] [address] Performed By: #### 5 7021-8 ####[facility] LABORATORYCLIA [id number] [address] [place] Hemoglobin (Bld) [Mass/Vol] 10.8 g/dL Low 13.0-17.0 [facility] Comment on above: Order Comment: Speci men Type: BLOOD SPECIMENOrdering Facility: [facility] Address: [address] [place] [address] Performed By: #### 5 7021-8 ####[facility]ORATORYCLIA [id number] [address] IMMATURE GRAN % 0.4 % Normal [facility] Comment on above: Order Comment: Speci men Type: BLOOD SPECIMENOrdering Facility: [facility] Address: [address] [place] [address] Performed By: #### 5 7021-8 ####[facility] LABORATORYCLIA [id number] [address] IMMATURE GRAN ABS 0.05 k/uL Normal <0.10 [facility] Comment on above: Order Comment: Speci men Type: BLOOD SPECIMENOrdering Facility: [facility] Address: [address] [place] [address] Performed By: #### 5 7021-8 ####[facility] LABORATORYCLIA [id number] [address] Lymphocytes (Bld) [#/Vol] 1.85 10*3/uL Normal 1.00-4.00 [facility] Comment on above: Order Comment: Speci men Type: BLOOD SPECIMENOrdering Facility: [facility] Address: [address] [place] [address] Performed By: #### 5 7021-8 ####[facility] LABORATORYCLIA [id number] [address] Lymphocytes/100 WBC (Bld) 14.7 % Normal [facility] Comment on above: Order Comment: Speci men Type: BLOOD SPECIMENOrdering Facility: [facility] Address: [address] [place] [address] Performed By: #### 5 7021-8 ####[facility] LABORATORYCLIA [id number] [address] [place] MCH (RBC) [Entitic mass] 27.1 pg Normal 26.0-34.0 [facility] Comment on above: Order Comment: Speci men Type: BLOOD SPECIMENOrdering Facility: [facility] Address: [address] [place] [address] Performed By: #### 5 7021-8 ####[facility] LABORATORYCLIA [id number] [address] STATES [facility] MCHC (RBC) [Mass/Vol] 30.3 g/dL Low 30.5-36.0 [facility] Comment on above: Order Comment: Speci men Type: BLOOD SPECIMENOrdering Facility: [facility] Address: [address] [place] [address] Performed By: #### 5 7021-8 ####[facility] LABORATORYCLIA [id number] [address] OF [facility] MCV (RBC) [Entitic vol] 89.7 fL Normal 80.0-100.0 [facility] Comment on above: Order Comment: Speci men Type: BLOOD SPECIMENOrdering Facility: [facility] Address: [address] [place] [address] Performed By: #### 5 7021-8 ####[facility] LABORATORYCLIA [id number] [address] OF [facility] Monocytes (Bld) [#/Vol] 0.87 10*3/uL High <0.87 [facility] Comment on above: Order Comment: Speci men Type: BLOOD SPECIMENOrdering Facility: [facility] Address: [address] [place] [address] Performed By: #### 5 7021-8 ####[facility] LABORATORYCLIA [id number] [address] Monocytes/100 WBC (Bld) 6.9 % Normal [facility] Comment on above: Order Comment: Speci men Type: BLOOD SPECIMENOrdering Facility: [facility] Address: [address] [place] [address] Performed By: #### 5 7021-8 ####[facility] LABORATORYCLIA [id number] [address] STATES [place] Neutrophils (Bld) [#/Vol] 9.05 10*3/uL High 1.45-7.50 [facility] Comment on above: Order Comment: Speci men Type: BLOOD SPECIMENOrdering Facility: [facility] Address: [address] [address] Performed By: #### 5 7021-8 ####[facility] LABORATORYCLIA [id number] [address] [place] Neutrophils/100 WBC (Bld) 72.2 % Normal [facility] Comment on above: Order Comment: Speci men Type: BLOOD SPECIMENOrdering Facility: [facility] Address: [address] [place] [address] Performed By: #### 5 7021-8 ####[facility] LABORATORYCLIA [id number] [address] [place] Nucleated RBC (Bld) [#/Vol] 10*3/uL Normal <0.01 [facility] Comment on above: Order Comment: Speci men Type: BLOOD SPECIMENOrdering Facility: [facility] Address: [address] [place] [address] Performed By: #### 5 7021-8 ####[facility] LABORATORYCLIA [id number] [address] [place] Nucleated RBC/100 WBC (Bld) [Ratio] 0.0 /100 WBC Normal [facility] Comment on above: Order Comment: Speci men Type: BLOOD SPECIMENOrdering Facility: [facility] Address: [address] [address] Performed By: #### 5 7021-8 ####[facility] LABORATORYCLIA [id number] [address] [place] Platelet mean volume (Bld) [Entitic vol] 9.9 fL Normal 9.0-12.7 [facility] Comment on above: Order Comment: Speci men Type: BLOOD SPECIMENOrdering Facility: [facility] Address: [address] [place] [address] Performed By: #### 5 7021-8 ####[facility] LABORATORYCLIA [id number] [address] Platelets (Bld) [#/Vol] 335 10*3/uL Normal 150-400 [facility] Comment on above: Order Comment: Speci men Type: BLOOD SPECIMENOrdering Facility: [facility] Address: [address] [place] [address] Performed By: #### 5 7021-8 ####[facility] LABORATORYCLIA [id number] [address] [place] RBC (Bld) [#/Vol] 3.98 10*6/uL Low 4.20-6.00 [facility] Comment on above: Order Comment: Speci men Type: BLOOD SPECIMENOrdering Facility: [facility] Address: [address] [place] [address] Performed By: #### 5 7021-8 ####[facility] LABORATORYCLIA [id number] [address] WBC (Bld) [#/Vol] 12.55 10*3/uL High 3.70-11.00 [facility] Comment on above: Order Comment: Speci men Type: BLOOD SPECIMENOrdering Facility: [facility] Address: [address] [place] [address] Performed By: #### 5 7021-8 ####[facility] LABORATORYCLIA [id number] [address] CK CREATINE KINASEon 022 CK [Catalytic activity/Vol] 72 U/L Normal 51-298 [facility] Comment on above: Order Comment: Speci men Type: BLOOD SPECIMENOrdering Facility: [facility] Address: [address] [place] [address] Performed By: #### C K, 25989-9 ####[facility] LABORATORYCLIA [id number] [address] CONSULT PROGon 07-08-2021 CONSULT PROG Normal [facility] CONSULT PROG Normal [facility] CSF MANUAL DIFFon 07-08-2021 DIF TTL, CSF 3 cells counted Normal [facility] Comment on above: Order Comment: Speci men Type: CEREBROSPINAL FLUIDOrdering Facility: [facility] Address: [address] [place] [address] Performed By: #### 3 4563-7, [id number] ####[facility] LABORATORYCLIA [id number] [place] [address] [place] LYMPH%, CSF 33 % Low 50-90 [facility] Comment on above: Order Comment: Speci men Type: CEREBROSPINAL FLUIDOrdering Facility: [facility] Address: [address] [place] [address] Performed By: #### 3 4563-7, [id number] ####[facility] LABORATORYCLIA [id number] [place] [address] [place] MONO%, CSF 67 % High 10-50 [facility] Comment on above: Order Comment: Speci men Type: CEREBROSPINAL FLUIDOrdering Facility: [facility] Address: [address] [place] [address] Performed By: #### 3 4563-7, [id number] ####[facility]ORATORYCLIA [id number] [place] [address] [place] ABD/PEL W IVCONon 022 CT ABD/PEL W IVCON Normal [facility] CT BRAIN WO IVCONon 07-09-[address] BRAIN WO IVCON Normal [facility] CT BRAIN WO IVCON Normal [facility] CT CHEST W IVCON PEon 2021 CT CHEST W IVCON PE Normal [facility] Cell count panel (CSF)on Clarity (CSF) Clear Normal Clear [facility] Comment on above: Order Comment: Speci men Type: CEREBROSPINAL FLUIDOrdering Facility: [facility] Address: [address] [place] [address] Performed By: #### 3 4563-7, [id number] ####[facility] LABORATORYCLIA [id number] [address] Clarity (Unsp spec) Clear Normal Clear [facility] Comment on above: Order Comment: Speci men Type: CEREBROSPINAL FLUIDOrdering Facility: [facility] Address: [address] [address] Performed By: #### 3 4563-7, [id number] ####[facility] LABORATORYCLIA [id number] [address] Color (CSF) Colorless Normal Colorless [facility] Comment on above: Order Comment: Speci men Type: CEREBROSPINAL FLUIDOrdering Facility: [facility] Address: [facility] [address] Performed By: #### 3 4563-7, [id number] ####[facility] LABORATORYCLIA [id number] [address] Color (Spun CSF) Colorless Normal Colorless [facility] Comment on above: Order Comment: Speci men Type: CEREBROSPINAL FLUIDOrdering Facility: [facility] Address: [address] [place] [address] Performed By: #### 3 4563-7, [id number] ####[facility] LABORATORYCLIA [id number] [address] CSF [employer] Normal [facility] Comment on above: Order Comment: Speci men Type: CEREBROSPINAL FLUIDOrdering Facility: [facility] Address: [address] [address] Performed By: #### 3 4563-7, [id number] ####[facility] LABORATORYCLIA [id number] [address] RBC Manual cnt (CSF) [#/Vol] 94 cells/uL High 0-5 [facility] Comment on above: Order Comment: Speci men Type: CEREBROSPINAL FLUIDOrdering Facility: [facility] Address: [address] [address] Performed By: #### 3 4563-7, [id number] ####[facility] LABORATORYCLIA [id number] [place], [place] [id number] [place] [address] WBC Manual cnt (CSF) [#/Vol] 1 cells/uL Normal 0-5 [facility] Comment on above: Order Comment: Speci men Type: CEREBROSPINAL FLUIDOrdering Facility: [facility] Address: [address] [place] [address] Performed By: #### 3 4563-7, [id number] ####[facility] LABORATORYCLIA [id number] [place], [place] [id number] [place] [address] Comprehensive metabolic 2000 panelon 07-08-2021 Albumin [Mass/Vol] 3.6 g/dL Low 3.9-4.9 [facility] Comment on above: Order Comment: Speci men Type: BLOOD SPECIMENOrdering Facility: [facility] Address: [address] [place] [address] Performed By: #### Eileen Valdivia, 39056-5 ####[facility] LABORATORYCLIA [id number] [address] [place] ALP [Catalytic activity/Vol] 125 U/L High 38-113 [facility] Comment on above: Order Comment: Speci men Type: BLOOD SPECIMENOrdering Facility: [facility] Address: [address] [place] [address] Performed By: #### Eileen Valdivia, 95833-5 ####[facility] LABORATORYCLIA [id number] [address] ALT With P-5'-P [Catalytic activity/Vol] 24 U/L Normal 10-54 [facility] Comment on above: Order Comment: Speci men Type: BLOOD SPECIMENOrdering Facility: [facility] Address: [address] [place] [address] Performed By: #### Eileen Valdivia, 15823-4 ####[facility] LABORATORYCLIA [id number] [address] [place] Anion gap [Moles/Vol] 16 mmol/L Normal 9-18 [facility] Comment on above: Order Comment: Speci men Type: BLOOD SPECIMENOrdering Facility: [facility] Address: [address] [place] [address] Performed By: #### Eileen Valdivia, 27381-5 ####[facility] LABORATORYCLIA [id number] [place] [address] [place] AST With P-5'-P [Catalytic activity/Vol] 21 U/L Normal 14-40 [facility] Comment on above: Order Comment: Speci men Type: BLOOD SPECIMENOrdering Facility: [facility] Address: [address] [place] [address] Performed By: #### Eileen Valdivia, 38233-5 ####[facility] LABORATORYCLIA [id number] [place] [address] [place] Bilirubin [Mass/Vol] 0.3 mg/dL Normal 0.2-1.3 [facility] Comment on above: Order Comment: Speci men Type: BLOOD SPECIMENOrdering Facility: [facility] Address: [address] [place] [address] Performed By: #### Eileen Valdivia, 82070-2 ####[facility] LABORATORYCLIA [id number] [place] [address] [place] Calcium [Mass/Vol] 8.9 mg/dL Normal 8.5-10.2 [facility] Comment on above: Order Comment: Speci men Type: BLOOD SPECIMENOrdering Facility: [facility] Address: [address] [place] [address] Performed By: #### Eileen Valdivia, 70580-6 ####[facility] LABORATORYCLIA [id number] [place] [address] [place] Chloride [Moles/Vol] 96 mmol/L Low 97-105 [facility] Comment on above: Order Comment: Speci men Type: BLOOD SPECIMENOrdering Facility: [facility] Address: [address] [place] [address] Performed By: #### Eileen Valdivia, 68044-7 ####[facility] LABORATORYCLIA [id number] [place] [address] [place] CO2 [Moles/Vol] 27 mmol/L Normal 22-30 [facility] Comment on above: Order Comment: Speci men Type: BLOOD SPECIMENOrdering Facility: [facility] Address: [address] [place] [address] Performed By: #### C K, 91643-3 ####[facility] LABORATORYCLIA [id number] [place] [address] [place] Creatinine [Mass/Vol] 0.68 mg/dL Low 0.73-1.22 [facility] Comment on above: Order Comment: Speci men Type: BLOOD SPECIMENOrdering Facility: [facility] Address: [address] [place] [address] Performed By: #### C K, 51358-6 ####[facility] SERVICESCLIA [id number] [address] ESTIMATED GLOMERULAR FILTRATION RATE 101 mL/min/1.73m??? Normal >=60 [facility] Comment on above: Order Comment: Speci men Type: BLOOD SPECIMENOrdering Facility: [facility] Address: [address] [place] [address] Result Comment: Luzmaria mated Glomerular Filtration Rate [...] actual GFR. Performed By: #### C K, 98417-9 ####[facility] LABORATORYCLIA [id number] [address] [place] Glucose [Mass/Vol] 130 mg/dL High 74-99 [facility] Comment on above: Order Comment: Speci men Type: BLOOD SPECIMENOrdering Facility: [facility] Address: [address] [place] [address] Result Comment: The [place] Diabetes Association (ADA) provides guidance for cutoff [...] Standards of Medical Care in Diabetes 2016, [place] [employer]. Diabetes Care. 2016.39(Suppl 1). Performed By: #### Eileen Valdivia, 03099-0 ####[facility] LABORATORYCLIA [id number] [place] [address] [place] Potassium [Moles/Vol] 3.9 mmol/L Normal 3.7-5.1 [facility] Comment on above: Order Comment: Speci men Type: BLOOD SPECIMENOrdering Facility: [facility] Address: [address] [place] [address] Performed By: #### Eileen Valdivia, 15638-6 ####[facility] LABORATORYCLIA [id number] [place] [address] [place] Protein [Mass/Vol] 7.0 g/dL Normal 6.3-8.0 [facility] Comment on above: Order Comment: Speci men Type: BLOOD SPECIMENOrdering Facility: [facility] Address: [address] [address] Performed By: #### C Skip, 10260-7 ####[facility] LABORATORYCLIA [id number] [place] [address] [place] Sodium [Moles/Vol] 139 mmol/L Normal 136-144 [facility] Comment on above: Order Comment: Johni men Type: BLOOD SPECIMENOrdering Facility: [facility] Address: [address] [address] Performed By: #### C Skip, 03472-2 ####[facility] LABORATORYCLIA [id number] [address] [place] Urea nitrogen [Mass/Vol] 16 mg/dL Normal 9-24 [facility] Comment on above: Order Comment: Speci men Type: BLOOD SPECIMENOrdering Facility: [facility] Address: [address] [place], [place] [address] [address] Performed By: #### Eileen Valdivia, 76372-7 ####[facility] LABORATORYCLIA [id number] [address] ED NOTEon 07-08-2021 ED NOTE HNO ID: [id number] Author: Lenora James RN Service: Emergency Medicine Author Type: Registered Nurse Type: ED Notes Filed: 07/08/2021 5:03 PM Note Text: Pt to OR with surgical team [facility] ED NOTE HNO ID: [id number] Author: Lenora James RN Service: Emergency Medicine Author Type: Registered Nurse Type: ED Notes Filed: 07/08/2021 4:50 PM Note Text: OR team to get pt [facility] ED NOTE HNO ID: [id number] Author: Lenora James RN Service: Emergency Medicine Author Type: Registered Nurse Type: ED Notes Filed: 07/08/2021 4:50 PM Note Text: Normal [facility] ED NOTE HNO ID: [id number] Author: Lenora James RN Service: Emergency Medicine Author Type: Registered Nurse Type: ED Notes Filed: 07/08/2021 4:50 PM Note Text: Spoke with presurg; pt to go to OR now [facility] ED NOTE HNO ID: [id number] Author: Lenora James RN Service: Emergency Medicine Author Type: Registered Nurse Type: ED Notes Filed: 07/08/2021 4:12 PM Note Text: Neurosurgery at beside [facility] ED NOTE HNO ID: [id number] Author: Lenora James RN Service: Emergency Medicine Author Type: Registered Nurse Type: ED Notes Filed: 07/08/2021 2:35 PM Note Text: respiratory aware of pt breathing treatments [facility] ED NOTE HNO ID: [id number] Author: Lisa Woo AYUSH Service: ? Author Type: Registered Nurse Type: ED Notes Filed: 07/08/2021 2:20 PM Note Text: Xray notified pt is ready. Normal [facility] ED NOTE HNO ID: [id number] Author: Lenora James RN Service: Emergency Medicine Author Type: Registered Nurse Type: ED Notes Filed: 07/08/2021 12:14 PM Note Text: CT notified regarding imaging orders placed Normal [facility] ED NOTE Normal [facility] ED PROV NOTEon 07-08-2021 ED PROV NOTE Normal [facility] Glucose CSF-mCncon Glucose (CSF) [Mass/Vol] 88 mg/dL High 40-70 [facility] Comment on above: Order Comment: Shira feldman Type: CEREBROSPINAL FLUIDOrdering Facility: [facility] Address: [address] [place], [place] [address] Result Comment: Lumb ar CSF glucose values of healthy patients are approximately 60% of the plasma values and must always be compared with a concurrently measured plasma value for adequate clinical interpretation.References: 1. Glucose HK (GLUC3) [package insert V 12.0 [place]]. [employer], [place], [place]. September 2015. 2. Michelle Moore, He, H. (2015). Chapter 7: Glucose and Lactate. Marianela Alcocer al.(eds.), Cerebrospinal Fluid in Clinical Neurology. [place]: [employer]. Performed By: #### 2 880-3, 2342-4 ####[facility] LABORATORYCLIA [id number] [address] [place] HIGH SENSITIVITY TROPONIN To n 07-08-2021 HIGH SENSITIVITY TAMIKO 27 ng/L High <12 [facility] Comment on above: Order Comment: Shira feldman Type: BLOOD SPECIMENOrdering Facility: [facility] Address: [address] [place], [place] [address] Result Comment: When assessing risk for acute [...] day MACE. Performed By: #### H STNT ####[facility] LABORATORYCLIA [id number] [address] HIGH SENSITIVITY TAMIKO 36 ng/L High <12 [facility] Comment on above: Order Comment: Speci men Type: BLOOD SPECIMENOrdering Facility: [facility] Address: [address] [place] [address] Result Comment: When assessing risk for acute [...] day MACE. Performed By: #### H STNT ####[facility] LABORATORYIA [id number] [address] HISTORY PHYSICALon HISTORY PHYSICAL Normal [facility] NURSING PROGon 07-08-2021 NURSING PROG Normal [facility] OPERATIVE NOon 07-08-2021 OPERATIVE NO Normal [facility] Prot CSF-mCncon 07-08-2021 Protein (CSF) [Mass/Vol] 33 mg/dL Normal 15-45 [facility] Comment on above: Order Comment: Speci men Type: CEREBROSPINAL FLUIDOrdering Facility: [facility] Address: [address] [place] [address] Performed By: #### 2 880-3, 2342-4 ####[facility] LABORATORYIA [id number] [place] [address] [place] SARS-CoV-2 RNA Resp Ql MEGAN+p robeon 07-08-2021 SARS-CoV-2 (COVID-19) RNA MEGAN+probe Ql (Resp) COVID 19 RESULT: SARS-CoV-2 (Agent of COVID-19) Not Detected by RT-PCR or equivalent method. This test has been authorized by FDA under an Emergency Use Authorization (EUA). Normal [facility] Comment on above: Performed By: #### 9 4500-6 ####[facility] LABORATORYCLIA [id number] [address] STAPH AUREUS PCRon 2 S. aureus and MRSA panel MEGAN+probe (Nose) Normal Negative [facility] Comment on above: Order Comment: Speci men Type: SWAB OF INTERNAL NOSEOrdering Facility: [facility] Address: [address] [place] [address] Result Comment: Nega tive for Staphylococcus aureus by PCR.Negative for MRSA by PCR Performed By: #### S APCR ####[facility] LABORATORYCLIA [id number] [address] Urinalysis complete panel (U )on 07-08-2021 Bacteria LM.HPF (Urine sed) [#/Area] Few Abnormal None Seen [facility] Comment on above: Order Comment: Speci men Type: URINE SPECIMENOrdering Facility: [facility] Address: [address] [place] [address] Performed By: #### 2 4356-8 ####[facility] LABORATORYCLIA [id number] [address] Bilirubin Ql (U) Negative Normal Negative [facility] Comment on above: Order Comment: Speci men Type: URINE SPECIMENOrdering Facility: [facility] Address: [address] [place] [address] Performed By: #### 2 4356-8 ####[facility] LABORATORYCLIA [id number] [address] Clarity (Unsp spec) Turbid Abnormal Clear [facility] Comment on above: Order Comment: Speci men Type: URINE SPECIMENOrdering Facility: [facility] Address: [address] [place] [address] Performed By: #### 2 4356-8 ####[facility] LABORATORYCLIA [id number] [address] Color (U) Light Yellow Normal yellow [facility] Comment on above: Order Comment: Speci men Type: URINE SPECIMENOrdering Facility: [facility] Address: [address] [place] [address] Performed By: #### 2 4356-8 ####[facility] LABORATORYCLIA [id number] [address] STATES [facility] Glucose Test strip (U) [Mass/Vol] Negative Normal Negative [facility] Comment on above: Order Comment: Speci men Type: URINE SPECIMENOrdering Facility: [facility] Address: [address] [place] [address] Performed By: #### 2 4356-8 ####[facility] LABORATORYCLIA [id number] [address] STATES [facility] Hemoglobin Ql (U) Negative Normal Negative [facility] Comment on above: Order Comment: Speci men Type: URINE SPECIMENOrdering Facility: [facility] Address: [address] [place] [address] Performed By: #### 2 4356-8 ####[facility] LABORATORYCLIA [id number] [address] STATES [facility] Hyaline casts (Urine sed) [#/Area] 1-3 /LPF Abnormal 0 /LPF [facility] Comment on above: Order Comment: Speci men Type: URINE SPECIMENOrdering Facility: [facility] Address: [address] [place] [address] Performed By: #### 2 4356-8 ####[facility] LABORATORYCLIA [id number] [address] STATES [place] [facility] Ketones Ql (U) Negative Normal Negative [facility] Comment on above: Order Comment: Speci men Type: URINE SPECIMENOrdering Facility: [facility] Address: [address] [place] [address] Performed By: #### 2 4356-8 ####[facility] LABORATORYCLIA [id number] [address] [place] Leukocyte esterase Test strip Ql (U) Negative Normal Negative [facility] Comment on above: Order Comment: Speci men Type: URINE SPECIMENOrdering Facility: [facility] Address: [address] [place] [address] Performed By: #### 2 4356-8 ####[facility] LABORATORYCLIA [id number] [place] [address] [place] Nitrite Ql (U) Negative Normal Negative [facility] Comment on above: Order Comment: Speci men Type: URINE SPECIMENOrdering Facility: [facility] Address: [address] [place] [address] Performed By: #### 2 4356-8 ####[facility] LABORATORYCLIA [id number] [address] pH (U) 5.0 [pH] Normal 5.0-8.0 [facility] Comment on above: Order Comment: Speci men Type: URINE SPECIMENOrdering Facility: [facility] Address: [address] [place] [address] Performed By: #### 2 4356-8 ####[facility] LABORATORYCLIA [id number] [address] STATES [facility] Protein (U) [Mass/Vol] Negative Normal Negative [facility] Comment on above: Order Comment: Speci men Type: URINE SPECIMENOrdering Facility: [facility] Address: [address] [place] [address] Performed By: #### 2 4356-8 ####[facility] LABORATORYCLIA [id number] [address] [place] RBC LM.HPF (Urine sed) [#/Area] 11-25 /HPF Abnormal 0-3 /HPF [facility] Comment on above: Order Comment: Speci men Type: URINE SPECIMENOrdering Facility: [facility] Address: [address] [place] [address] Performed By: #### 2 4356-8 ####[facility] LABORATORYCLIA [id number] [address] Specific gravity (U) [Rel density] 1.018 Normal 1.005-1.030 [facility] Comment on above: Order Comment: Speci men Type: URINE SPECIMENOrdering Facility: [facility] Address: [address] [place] [address] Performed By: #### 2 4356-8 ####[facility] LABORATORYCLIA [id number] [address] Urobilinogen Ql (U) Normal Normal Negative [facility] Comment on above: Order Comment: Speci men Type: URINE SPECIMENOrdering Facility: [facility] Address: [address] [place] [address] Performed By: #### 2 4356-8 ####[facility] SERVICESCLIA [id number] [address] WBC LM.HPF (Urine sed) [#/Area] /[HPF] Abnormal 0-5 /HPF [facility] Comment on above: Order Comment: Speci men Type: URINE SPECIMENOrdering Facility: [facility] Address: [address] [place] [address] Performed By: #### 2 4356-8 ####[facility] LABORATORYCLIA [id number] [address] Vancomycin random [Mass/Vol] on 07-08-2021 Vancomycin [Mass/Vol] 31.0 ug/mL High 10.0-20.0 [facility] Comment on above: Order Comment: Speci men Type: BLOOD SPECIMENOrdering Facility: [facility] Address: [address] [place] [address] Result Comment: Refe rence ranges and high/low indicator flags are provided as general guidelines only. The treating physician must determine appropriate target levels/dosing based on the specific clinical situation. Performed By: #### 4 091-5 ####[facility] LABORATORYCLIA [id number] [address] [place] [facility] XR ABD 2V SUPINE W UPR/DECUB /CTLon 07-08-2021 XR ABD 2V SUPINE W UPR/DECUB/CTL Normal [facility] XR CHEST 1V FRONTALon 2021 XR CHEST 1V FRONTAL Normal [facility] XR CHEST 1V FRONTAL Normal [facility] XR NECK SOFT TISSUE 2V AP/LA Ton 07-08-2021 XR NECK SOFT TISSUE 2V AP/LAT Normal [facility] XR SKULL 2V AP/LATon 022 XR SKULL 2V AP/LAT Normal [facility] HISTORY PHYSICALon HISTORY PHYSICAL HNO ID: [id number] Author: Amy Beltran MD Service: ? Author Type: Physician Type: HANDP Filed: 06/30/2021 6:42 PM Note Text: Connected Care Unit History and Physical Facility: [facility] Level of Care: Skilled Admission Date: June [...] regarding the above plan. Total time spent [id number] and/or counseling and coordinating care on the skilled care unit for patient was approximately 45 minutes SUBJECTIVE (HISTORY) Chief Complaint: Confusion, infection, blood clot. Andrew Sifuentes is being seen today for alf facility (SNF) admission AND management of weakness, tube feed, infected retroperitoneal infection and seizure. HPI: This is a 71 year old male who presents from [facility] with primary admitting diagnosis of Seizure, [...] CT brain concerning for hydrocephalus. Tip of ANALYTICS SENIOR MANAGER shunt was found to be in the [...] Status: Fu (more content not included)... Normal [facility] Basic metabolic 2000 panelon 06-28-2021 Anion gap [Moles/Vol] 7 mmol/L Low 9-18 [facility] Comment on above: Order Comment: Speccara feldman Type: BLOOD SPECIMENOrdering Facility: [facility] Address: [address] [place] [address] Performed By: #### 2 4320-06, ####[facility] LABORATORYCLIA [id number] [place] [address] [place] Calcium [Mass/Vol] 8.8 mg/dL Normal 8.5-10.2 [facility] Comment on above: Order Comment: Shira feldman Type: BLOOD SPECIMENOrdering Facility: [facility] Address: [address] Performed By: #### 2 4320-06, ####[facility] LABORATORYCLIA [id number] [place] [address] [place] Chloride [Moles/Vol] 103 mmol/L Normal 97-105 [facility] Comment on above: Order Comment: Speci men Type: BLOOD SPECIMENOrdering Facility: [facility] Address: [address] [place] [address] Performed By: #### 2 4321-2, ####[facility] LABORATORYCLIA [id number] [address] [place] [facility] CO2 [Moles/Vol] 28 mmol/L Normal 22-30 [facility] Comment on above: Order Comment: Speci men Type: BLOOD SPECIMENOrdering Facility: [facility] Address: [address] [place] [address] Performed By: #### 2 4321-2, ####[facility] LABORATORYCLIA [id number] [address] [place] Creatinine [Mass/Vol] 0.57 mg/dL Low 0.73-1.22 [facility] Comment on above: Order Comment: Speci men Type: BLOOD SPECIMENOrdering Facility: [facility] Address: [address] [place] [address] Performed By: #### 2 432-2, ####[facility] LABORATORYCLIA [id number] [address] [place] GFR/1.73 sq M.predicted MDRD (S/P/Bld) [Vol rate/Area] mL/min/{1.73_m2} Normal [facility] Comment on above: Order Comment: Speci men Type: BLOOD SPECIMENOrdering Facility: [facility] Address: [address] [place] [address] Result Comment: >60e GFR (Estimated GFR) Units [...] reflect actual GFR. Performed By: #### 2 ####[facility] LABORATORYCLIA [id number] [place] [address] [place] Glucose [Mass/Vol] 120 mg/dL High 74-99 [facility] Comment on above: Order Comment: Speci men Type: BLOOD SPECIMENOrdering Facility: [facility] Address: [address] [place] [address] Result Comment: The [place] [employer] (ADA) provides guidance for cutoff [...] Standards of Medical Care in Diabetes 2016, [place] [employer]. Diabetes Care. 2016.39(Suppl 1). Performed By: #### 2 ####[facility] LABORATORYCLIA [id number] [place] [address] [place] Potassium [Moles/Vol] 3.8 mmol/L Normal 3.7-5.1 [facility] Comment on above: Order Comment: Speci men Type: BLOOD SPECIMENOrdering Facility: [facility] Address: [address] [place] [address] Performed By: #### 2 4320-06, ####[facility] LABORATORYCLIA [id number] [place] [id number] [place] Sodium [Moles/Vol] 138 mmol/L Normal 136-144 [facility] Comment on above: Order Comment: Speci men Type: BLOOD SPECIMENOrdering Facility: [facility] Address: [address] [place], [place] [address] Performed By: #### 2 4320-06, ####[facility]ORATORYCLIA [id number] [address] [place] Urea nitrogen [Mass/Vol] 24 mg/dL Normal 9-24 [facility] Comment on above: Order Comment: Speci men Type: BLOOD SPECIMENOrdering Facility: [facility] Address: [address] [place] [address] Performed By: #### 2 4321-2, 74862-7 ####[facility] LABORATORYCLIA [id number] [address] OF [facility] CASE MANAGEMon 06-28-2021 CASE MANAGEM Normal [facility] CBC panel Auto (Bld)on 06-28 Erythrocyte distribution width (RBC) [Ratio] 15.6 % High 11.5-15.0 [facility] Comment on above: Order Comment: Speci men Type: BLOOD SPECIMENOrdering Facility: [facility] Address: [address] [place] [address] Performed By: #### 5 8410-2 ####[facility] LABORATORYCLIA [id number] [address] STATES [facility] Hematocrit (Bld) [Volume fraction] 30.5 % Low 39.0-51.0 [facility] Comment on above: Order Comment: Speci men Type: BLOOD SPECIMENOrdering Facility: [facility] Address: [address] [place] [address] Performed By: #### 5 8410-2 ####[facility] LABORATORYCLIA [id number] [address] [place] Hemoglobin (Bld) [Mass/Vol] 9.4 g/dL Low 13.0-17.0 [facility] Comment on above: Order Comment: Speci men Type: BLOOD SPECIMENOrdering Facility: [facility] Address: [address] [place] [address] Performed By: #### 5 8410-2 ####[facility] LABORATORYCLIA [id number] [address] [place] MCH (RBC) [Entitic mass] 27.8 pg Normal 26.0-34.0 [facility] Comment on above: Order Comment: Speci men Type: BLOOD SPECIMENOrdering Facility: [facility] Address: [address] [place] [address] Performed By: #### 5 8410-2 ####[facility] LABORATORYCLIA [id number] [address] MCHC (RBC) [Mass/Vol] 30.8 g/dL Normal 30.5-36.0 [facility] Comment on above: Order Comment: Speci men Type: BLOOD SPECIMENOrdering Facility: [facility] Address: [address] [place] [address] Performed By: #### 5 8410-2 ####[facility] LABORATORYCLIA [id number] [address] STATES [facility] MCV (RBC) [Entitic vol] 90.2 fL Normal 80.0-100.0 [facility] Comment on above: Order Comment: Speci men Type: BLOOD SPECIMENOrdering Facility: [facility] Address: [address] [place] [address] Performed By: #### 5 8410-2 ####[facility] LABORATORYCLIA [id number] [address] Nucleated RBC (Bld) [#/Vol] 10*3/uL Normal <0.01 [facility] Comment on above: Order Comment: Speci men Type: BLOOD SPECIMENOrdering Facility: [facility] Address: [address] [place] [address] Performed By: #### 5 8410-2 ####[facility] LABORATORYCLIA [id number] [address] Platelet mean volume (Bld) [Entitic vol] 9.9 fL Normal 9.0-12.7 [facility] Comment on above: Order Comment: Speci men Type: BLOOD SPECIMENOrdering Facility: [facility] Address: [address] [place] [address] Performed By: #### 5 8410-2 ####[facility] LABORATORYCLIA [id number] [address] [place] Platelets (Bld) [#/Vol] 333 10*3/uL Normal 150-400 [facility] Comment on above: Order Comment: Speci men Type: BLOOD SPECIMENOrdering Facility: [facility] Address: [address] [place] [address] Performed By: #### 5 8410-2 ####[facility] LABORATORYCLIA [id number] [place] [address] [place] RBC (Bld) [#/Vol] 3.38 10*6/uL Low 4.20-6.00 [facility] Comment on above: Order Comment: Speci men Type: BLOOD SPECIMENOrdering Facility: [facility] Address: [address] [place] [address] Performed By: #### 5 8410-2 ####[facility] LABORATORYCLIA [id number] [address] WBC (Bld) [#/Vol] 9.71 10*3/uL Normal 3.70-11.00 [facility] Comment on above: Order Comment: Speci men Type: BLOOD SPECIMENOrdering Facility: [facility] Address: [address] [place] [address] Performed By: #### 5 8410-2 ####[facility] LABORATORYCLIA [id number] [address] [place] CNDSon 06-28-2021 CNDS Normal [facility] CONSULT PROGon 06-28-2021 CONSULT PROG Normal [facility] Magnesium SerPl-mCncon 06-28 Magnesium [Mass/Vol] 2.2 mg/dL Normal 1.7-2.3 [facility] Comment on above: Order Comment: Speci men Type: BLOOD SPECIMENOrdering Facility: [facility] Address: [address] [place] [address] Performed By: #### 2 4321-2, 35518-6 ####[facility] LABORATORYCLIA [id number] [address] [place] Vancomycin random [Mass/Vol] on 06-28-2021 Vancomycin [Mass/Vol] 23.0 ug/mL High 10.0-20.0 [facility] Comment on above: Order Comment: Speci men Type: BLOOD SPECIMENOrdering Facility: [facility] Address: [address] [place] [address] Result Comment: Refe rence ranges and high/low indicator flags are provided as general guidelines only. The treating physician must determine appropriate target levels/dosing based on the specific clinical situation. Performed By: #### 4 091-5 ####[facility] LABORATORYCLIA [id number] [address] [place] ALLIED HEALTHon 06-27-2021 ALLIED HEALTH Normal [facility] Basic metabolic 2000 panelon 06-27-2021 Anion gap [Moles/Vol] 10 mmol/L Normal 9-18 [facility] Comment on above: Order Comment: Speci men Type: BLOOD SPECIMENOrdering Facility: [facility] Address: [address] [place] [address] Performed By: #### 2 4321-2, 61216-5 ####[facility] LABORATORYCLIA [id number] [place] [address] [place] [facility] Calcium [Mass/Vol] 8.8 mg/dL Normal 8.5-10.2 [facility] Comment on above: Order Comment: Speci men Type: BLOOD SPECIMENOrdering Facility: [facility] Address: [address] [place] [address] Performed By: #### 2 4321-2, 51652-5 ####[facility] LABORATORYCLIA [id number] [place] [address] [place] Chloride [Moles/Vol] 104 mmol/L Normal 97-105 [facility] Comment on above: Order Comment: Speci men Type: BLOOD SPECIMENOrdering Facility: [facility] Address: [address] [place] [place] [address] Performed By: #### 2 432-, ####[facility] LABORATORYCLIA [id number] [place] [address] [place] CO2 [Moles/Vol] 26 mmol/L Normal 22-30 [facility] Comment on above: Order Comment: Speci men Type: BLOOD SPECIMENOrdering Facility: [facility] Address: [address] [place] [address] Performed By: #### 2 4320-06, ####[facility] SERVICESCLIA [id number] [place] [address] [place] Creatinine [Mass/Vol] 0.57 mg/dL Low 0.73-1.22 [facility] Comment on above: Order Comment: Speci men Type: BLOOD SPECIMENOrdering Facility: [facility] Address: [address] [place] [address] Performed By: #### 2 43205-08, ####[facility] SERVICESCLIA [id number] [address] [place] GFR/1.73 sq M.predicted MDRD (S/P/Bld) [Vol rate/Area] mL/min/{1.73_m2} Normal [facility] Comment on above: Order Comment: Speci men Type: BLOOD SPECIMENOrdering Facility: [facility] Address: [address] [place] [address] Result Comment: >60e GFR (Estimated GFR) Units [...] reflect actual GFR. Performed By: #### 2 4322, ####[facility] LABORATORYCLIA [id number] [place] [address] [place] Glucose [Mass/Vol] 133 mg/dL High 74-99 [facility] Comment on above: Order Comment: Speci men Type: BLOOD SPECIMENOrdering Facility: [facility] Address: [address] [place] [address] Result Comment: The [place] [employer] (ADA) provides guidance for cutoff [...] Standards of Medical Care in Diabetes 2016, [place] [employer]. Diabetes Care. 2016.39(Suppl 1). Performed By: #### 2 432 ####[facility] LABORATORYCLIA [id number] [place] [address] [place] Potassium [Moles/Vol] 4.2 mmol/L Normal 3.7-5.1 [facility] Comment on above: Order Comment: Shira feldman Type: BLOOD SPECIMENOrdering Facility: [facility] Address: [address] [place] [address] Performed By: #### 2 ####[facility] LABORATORYCLIA [id number] [place] [address] [place] Sodium [Moles/Vol] 140 mmol/L Normal 136-144 [facility] Comment on above: Order Comment: Johni men Type: BLOOD SPECIMENOrdering Facility: [facility] Address: [address] [place] [address] Performed By: #### 2 ####[facility] LABORATORYCLIA [id number] [place] [address] [place] Urea nitrogen [Mass/Vol] 24 mg/dL Normal 9-24 [facility] Comment on above: Order Comment: Speci men Type: BLOOD SPECIMENOrdering Facility: [facility] Address: [address] [place] [address] Performed By: #### 2 4321-2, 95173-2 ####[facility] LABORATORYCLIA [id number] [address] [place] CASE MANAGEMon 06-27-2021 CASE MANAGEM Normal [facility] CBC panel Auto (Bld)on 06-27 Erythrocyte distribution width (RBC) [Ratio] 15.8 % High 11.5-15.0 [facility] Comment on above: Order Comment: Speci men Type: BLOOD SPECIMENOrdering Facility: [facility] Address: [address] [place] [address] Performed By: #### 5 8410-2 ####[facility] LABORATORYCLIA [id number] [address] [place] [facility] Hematocrit (Bld) [Volume fraction] 31.4 % Low 39.0-51.0 [facility] Comment on above: Order Comment: Speci men Type: BLOOD SPECIMENOrdering Facility: [facility] Address: [address] [place] [address] Performed By: #### 5 8410-2 ####[facility] LABORATORYCLIA [id number] [address] [place] Hemoglobin (Bld) [Mass/Vol] 9.3 g/dL Low 13.0-17.0 [facility] Comment on above: Order Comment: Speci men Type: BLOOD SPECIMENOrdering Facility: [facility] Address: [address] [place] [address] Performed By: #### 5 8410-2 ####[facility] LABORATORYCLIA [id number] [place] [address] [place] MCH (RBC) [Entitic mass] 27.0 pg Normal 26.0-34.0 [facility] Comment on above: Order Comment: Speci men Type: BLOOD SPECIMENOrdering Facility: [facility] Address: [address] [place] [address] Performed By: #### 5 8410-2 ####[facility] LABORATORYCLIA [id number] [address] MCHC (RBC) [Mass/Vol] 29.6 g/dL Low 30.5-36.0 [facility] Comment on above: Order Comment: Speci men Type: BLOOD SPECIMENOrdering Facility: [facility] Address: [address] [place] [address] Performed By: #### 5 8410-2 ####[facility] LABORATORYCLIA [id number] [address] MCV (RBC) [Entitic vol] 91.3 fL Normal 80.0-100.0 [facility] Comment on above: Order Comment: Speci men Type: BLOOD SPECIMENOrdering Facility: [facility] Address: [address] [place] [address] Performed By: #### 5 8410-2 ####[facility] LABORATORYCLIA [id number] [address] Nucleated RBC (Bld) [#/Vol] 10*3/uL Normal <0.01 [facility] Comment on above: Order Comment: Speci men Type: BLOOD SPECIMENOrdering Facility: [facility] Address: [address] [place] [address] Performed By: #### 5 8410-2 ####[facility] LABORATORYCLIA [id number] [address] Platelet mean volume (Bld) [Entitic vol] 10.3 fL Normal 9.0-12.7 [facility] Comment on above: Order Comment: Speci men Type: BLOOD SPECIMENOrdering Facility: [facility] Address: [address] [place] [address] Performed By: #### 5 8410-2 ####[facility] LABORATORYCLIA [id number] [address] Platelets (Bld) [#/Vol] 359 10*3/uL Normal 150-400 [facility] Comment on above: Order Comment: Speci men Type: BLOOD SPECIMENOrdering Facility: [facility] Address: [address] [place] [address] Performed By: #### 5 8410-2 ####[facility] LABORATORYCLIA [id number] [place] [address] [place] RBC (Bld) [#/Vol] 3.44 10*6/uL Low 4.20-6.00 [facility] Comment on above: Order Comment: Speci men Type: BLOOD SPECIMENOrdering Facility: [facility] Address: [address] [place] [address] Performed By: #### 5 8410-2 ####[facility] SERVICESCLIA [id number] [address] WBC (Bld) [#/Vol] 10.73 10*3/uL Normal 3.70-11.00 [facility] Comment on above: Order Comment: Speci men Type: BLOOD SPECIMENOrdering Facility: [facility] Address: [address] [place] [address] Performed By: #### 5 8410-2 ####[facility] LABORATORYCLIA [id number] [address] [place] Magnesium SerPl-mCncon 06-27 Magnesium [Mass/Vol] 2.2 mg/dL Normal 1.7-2.3 [facility] Comment on above: Order Comment: Speci men Type: BLOOD SPECIMENOrdering Facility: [facility] Address: [address] [place] [address] Performed By: #### 2 4321-2, 02637-9 ####[facility] LABORATORYCLIA [id number] [address] [place] NT-proBNP SerPl-mCncon 06-27 Natriuretic peptide.B prohormone N-Terminal [Mass/Vol] 184 pg/mL High <125 [facility] Comment on above: Order Comment: Speci men Type: BLOOD SPECIMENOrdering Facility: [facility] Address: [address] [place] [address] Performed By: #### 3 3762-6 ####[facility] LABORATORYCLIA [id number] [place] [id number] [place] NUTRITIONon 06-27-2021 NUTRITION Normal [facility] THERAPY NTon 06-27-2021 THERAPY NT Normal [facility] THERAPY NT Normal [facility] XR CHEST 1V FRONTALon 2021 XR CHEST 1V FRONTAL Normal [facility] Basic metabolic 2000 panelon 06-26-2021 Anion gap [Moles/Vol] 9 mmol/L Normal 9-18 [facility] Comment on above: Order Comment: Speci men Type: BLOOD SPECIMENOrdering Facility: [facility] Address: [address] [place] [address] Performed By: #### 1 9123-9, 59932-0 ####[facility] LABORATORYCLIA [id number] [place] [address] [place] Calcium [Mass/Vol] 8.7 mg/dL Normal 8.5-10.2 [facility] Comment on above: Order Comment: Speci men Type: BLOOD SPECIMENOrdering Facility: [facility] Address: [address] [place] [address] Performed By: #### 1 9123-9, 97528-2 ####[facility] LABORATORYCLIA [id number] [place] [address] [place] Chloride [Moles/Vol] 105 mmol/L Normal 97-105 [facility] Comment on above: Order Comment: Speci men Type: BLOOD SPECIMENOrdering Facility: [facility] Address: [address] [place] [address] Performed By: #### 1 9123-9, 58711-9 ####[facility] LABORATORYCLIA [id number] [place] [address] [place] CO2 [Moles/Vol] 26 mmol/L Normal 22-30 [facility] Comment on above: Order Comment: Speci men Type: BLOOD SPECIMENOrdering Facility: [facility] Address: [address] [place] [address] Performed By: #### 1 9123-9, 46042-8 ####[facility] LABORATORYCLIA [id number] [place] [address] [place] Creatinine [Mass/Vol] 0.56 mg/dL Low 0.73-1.22 [facility] Comment on above: Order Comment: Speci men Type: BLOOD SPECIMENOrdering Facility: [facility] Address: [address] [place] [address] Performed By: #### 1 9123-9, 77723-1 ####[facility] LABORATORYCLIA [id number] [address] [place] GFR/1.73 sq M.predicted MDRD (S/P/Bld) [Vol rate/Area] mL/min/{1.73_m2} Normal [facility] Comment on above: Order Comment: Speccara feldman Type: BLOOD SPECIMENOrdering Facility: [facility] Address: [address] [place] [address] Result Comment: >60e GFR (Estimated GFR) Units [...] actual GFR. Performed By: #### 1 9123-9, 53022-5 ####[facility] LABORATORYCLIA [id number] [place] [id number] [place] Glucose [Mass/Vol] 134 mg/dL High 74-99 [facility] Comment on above: Order Comment: Speci men Type: BLOOD SPECIMENOrdering Facility: [facility] Address: [address] [id number] Result Comment: The [place] [employer] (ADA) provides guidance for cutoff [...] Standards of Medical Care in Diabetes 2016, [place] [employer]. Diabetes Care. 2016.39(Suppl 1). Performed By: #### 1 9123-9, 10304-3 ####[facility] LABORATORYCLIA [id number] [place] [address] [place] Potassium [Moles/Vol] 3.8 mmol/L Normal 3.7-5.1 [facility] Comment on above: Order Comment: [facility] Type: BLOOD SPECIMENOrdering Facility: [facility] Address: [address] Performed By: #### 1 9123-9, 81834-8 ####[facility] LABORATORYCLIA [id number] [place] [address] [place] Sodium [Moles/Vol] 140 mmol/L Normal 136-144 [facility] Comment on above: Order Comment: Johni men Type: BLOOD SPECIMENOrdering Facility: [facility] Address: [address] Performed By: #### 1 91239, 02790-8 ####[facility] LABORATORYCLIA [id number] [place] [address] [place] Urea nitrogen [Mass/Vol] 24 mg/dL Normal 9-24 [facility] Comment on above: Order Comment: Johni men Type: BLOOD SPECIMENOrdering Facility: [facility] Address: [address] [address] Performed By: #### 1 9123-9, 92684-9 ####[facility] LABORATORYCLIA [id number] [address] CBC panel Auto (Bld)on 06-26 Erythrocyte distribution width (RBC) [Ratio] 15.9 % High 11.5-15.0 [facility] Comment on above: Order Comment: Speci men Type: BLOOD SPECIMENOrdering Facility: [facility] Address: [address] [place] [address] Performed By: #### 5 8410-2 ####[facility] LABORATORYCLIA [id number] [address] Hematocrit (Bld) [Volume fraction] 29.8 % Low 39.0-51.0 [facility] Comment on above: Order Comment: Speci men Type: BLOOD SPECIMENOrdering Facility: [facility] Address: [address] [place] [address] Performed By: #### 5 8410-2 ####[facility] LABORATORYCLIA [id number] [address] Hemoglobin (Bld) [Mass/Vol] 9.1 g/dL Low 13.0-17.0 [facility] Comment on above: Order Comment: Speci men Type: BLOOD SPECIMENOrdering Facility: [facility] Address: [address] [place] [address] Performed By: #### 5 8410-2 ####[facility] LABORATORYCLIA [id number] [address] MCH (RBC) [Entitic mass] 27.8 pg Normal 26.0-34.0 [facility] Comment on above: Order Comment: Speci men Type: BLOOD SPECIMENOrdering Facility: [facility] Address: [address] [place] [address] Performed By: #### 5 8410-2 ####[facility] LABORATORYCLIA [id number] [address] [place] MCHC (RBC) [Mass/Vol] 30.5 g/dL Normal 30.5-36.0 [facility] Comment on above: Order Comment: Speci men Type: BLOOD SPECIMENOrdering Facility: [facility] Address: [address] [place] [address] Performed By: #### 5 8410-2 ####[facility] LABORATORYCLIA [id number] [address] [place] MCV (RBC) [Entitic vol] 91.1 fL Normal 80.0-100.0 [facility] Comment on above: Order Comment: Speci men Type: BLOOD SPECIMENOrdering Facility: [facility] Address: [address] [place] [address] Performed By: #### 5 8410-2 ####[facility] LABORATORYCLIA [id number] [address] STATES OF [facility] Nucleated RBC (Bld) [#/Vol] 10*3/uL Normal <0.01 [facility] Comment on above: Order Comment: Speci men Type: BLOOD SPECIMENOrdering Facility: [facility] Address: [address] [place] [address] Performed By: #### 5 8410-2 ####[facility] LABORATORYCLIA [id number] [address] [place] Platelet mean volume (Bld) [Entitic vol] 10.3 fL Normal 9.0-12.7 [facility] Comment on above: Order Comment: Speci men Type: BLOOD SPECIMENOrdering Facility: [facility] Address: [address] [place] [address] Performed By: #### 5 8410-2 ####[facility] LABORATORYCLIA [id number] [address] [place] Platelets (Bld) [#/Vol] 336 10*3/uL Normal 150-400 [facility] Comment on above: Order Comment: Speci men Type: BLOOD SPECIMENOrdering Facility: [facility] Address: [address] [address] Performed By: #### 5 8410-2 ####[facility] LABORATORYCLIA [id number] [address] [place] [facility] RBC (Bld) [#/Vol] 3.27 10*6/uL Low 4.20-6.00 [facility] Comment on above: Order Comment: Speci men Type: BLOOD SPECIMENOrdering Facility: [facility] Address: [address] [place] [address] Performed By: #### 5 8410-2 ####[facility] LABORATORYCLIA [id number] [address] WBC (Bld) [#/Vol] 9.14 10*3/uL Normal 3.70-11.00 [facility] Comment on above: Order Comment: Speci men Type: BLOOD SPECIMENOrdering Facility: [facility] Address: [address] [place] [address] Performed By: #### 5 8410-2 ####[facility] LABORATORYCLIA [id number] [address] CONSULT PROGon 06-26-2021 CONSULT PROG Normal [facility] Magnesium SerPl-mCncon 06-26 Magnesium [Mass/Vol] 2.2 mg/dL Normal 1.7-2.3 [facility] Comment on above: Order Comment: Speci men Type: BLOOD SPECIMENOrdering Facility: [facility] Address: [address] [place] [address] Performed By: #### 1 9123-9, 30375-3 ####[facility] LABORATORYCLIA [id number] [address] NURSING PROGon 06-26-2021 NURSING PROG Normal [facility] NURSING PROG Normal [facility] Basic metabolic 2000 panelon 06-25-2021 Anion gap [Moles/Vol] 8 mmol/L Low 9-18 [facility] Comment on above: Order Comment: Speci men Type: BLOOD SPECIMENOrdering Facility: [facility] Address: [address] [address] Performed By: #### 2 4320-2, ####[facility]ORATORYCLIA [id number] [place] [address] [place] Calcium [Mass/Vol] 8.8 mg/dL Normal 8.5-10.2 [facility] Comment on above: Order Comment: Speci men Type: BLOOD SPECIMENOrdering Facility: [facility] Address: [address] [address] Performed By: #### 2 2, ####[facility] LABORATORYCLIA [id number] [place] [address] [place] Chloride [Moles/Vol] 105 mmol/L Normal 97-105 [facility] Comment on above: Order Comment: Speci men Type: BLOOD SPECIMENOrdering Facility: [facility] Address: [address] [place] [address] Performed By: #### 2 4320-06, ####[facility] LABORATORYCLIA [id number] [place] [address] [place] CO2 [Moles/Vol] 27 mmol/L Normal 22-30 [facility] Comment on above: Order Comment: Speci men Type: BLOOD SPECIMENOrdering Facility: [facility] Address: [address] [address] Performed By: #### 2 2, ####[facility] LABORATORYCLIA [id number] [place] [address] [place] Creatinine [Mass/Vol] 0.59 mg/dL Low 0.73-1.22 [facility] Comment on above: Order Comment: Speci men Type: BLOOD SPECIMENOrdering Facility: [facility] Address: [address] [address] Performed By: #### 2 4320-2, ####[facility] LABORATORYCLIA [id number] [place] [address] [place] GFR/1.73 sq M.predicted MDRD (S/P/Bld) [Vol rate/Area] mL/min/{1.73_m2} Normal [facility] Comment on above: Order Comment: Shira feldman Type: BLOOD SPECIMENOrdering Facility: [facility] Address: [address] [place] [address] Result Comment: >60e GFR (Estimated GFR) Units [...] actual GFR. Performed By: #### 2 4321-2, 89058-9 ####[facility] LABORATORYCLIA [id number] [place] [address] [place] Glucose [Mass/Vol] 132 mg/dL High 74-99 [facility] Comment on above: Order Comment: Shira feldman Type: BLOOD SPECIMENOrdering Facility: [facility] Address: [address] [place] [address] Result Comment: The [place] [employer] (ADA) provides guidance for cutoff [...] Standards of Medical Care in Diabetes 2016, [place] [employer]. Diabetes Care. 2016.39(Suppl 1). Performed By: #### 2 4321-2, 10039-6 ####[facility] LABORATORYCLIA [id number] [place] [address] [place] Potassium [Moles/Vol] 3.9 mmol/L Normal 3.7-5.1 [facility] Comment on above: Order Comment: Speci men Type: BLOOD SPECIMENOrdering Facility: [facility] Address: [address] [place] [address] Performed By: #### 2 4321-2, ####[facility] LABORATORYCLIA [id number] [address] [place] Sodium [Moles/Vol] 140 mmol/L Normal 136-144 [facility] Comment on above: Order Comment: Speci men Type: BLOOD SPECIMENOrdering Facility: [facility] Address: [address] [place] [address] Performed By: #### 2 4321-2, ####[facility] LABORATORYCLIA [id number] [address] STATES [facility] Urea nitrogen [Mass/Vol] 24 mg/dL Normal 9-24 [facility] Comment on above: Order Comment: Speci men Type: BLOOD SPECIMENOrdering Facility: [facility] Address: [address] [place] [address] Performed By: #### 2 4321-2, ####[facility] LABORATORYCLIA [id number] [address] [place] CASE MANAGEMon 06-25-2021 CASE MANAGEM Normal [facility] CBC panel Auto (Bld)on 06-25 Erythrocyte distribution width (RBC) [Ratio] 15.9 % High 11.5-15.0 [facility] Comment on above: Order Comment: Speci men Type: BLOOD SPECIMENOrdering Facility: [facility] Address: [address] [place] [address] Performed By: #### 5 8410-2 ####[facility] LABORATORYCLIA [id number] [address] OF [facility] Hematocrit (Bld) [Volume fraction] 31.0 % Low 39.0-51.0 [facility] Comment on above: Order Comment: Speci men Type: BLOOD SPECIMENOrdering Facility: [facility] Address: [address] [place] [address] Performed By: #### 5 8410-2 ####[facility] LABORATORYCLIA [id number] [address] OF [facility] Hemoglobin (Bld) [Mass/Vol] 9.4 g/dL Low 13.0-17.0 [facility] Comment on above: Order Comment: Speci men Type: BLOOD SPECIMENOrdering Facility: [facility] Address: [address] [place] [address] Performed By: #### 5 8410-2 ####[facility] LABORATORYCLIA [id number] [address] STATES [place] [facility] MCH (RBC) [Entitic mass] 28.1 pg Normal 26.0-34.0 [facility] Comment on above: Order Comment: Speci men Type: BLOOD SPECIMENOrdering Facility: [facility] Address: [address] [place] [address] Performed By: #### 5 8410-2 ####[facility] LABORATORYCLIA [id number] [address] MCHC (RBC) [Mass/Vol] 30.3 g/dL Low 30.5-36.0 [facility] Comment on above: Order Comment: Speci men Type: BLOOD SPECIMENOrdering Facility: [facility] Address: [address] [place] [address] Performed By: #### 5 8410-2 ####[facility] LABORATORYCLIA [id number] [address] MCV (RBC) [Entitic vol] 92.5 fL Normal 80.0-100.0 [facility] Comment on above: Order Comment: Speci men Type: BLOOD SPECIMENOrdering Facility: [facility] Address: [address] [place] [address] Performed By: #### 5 8410-2 ####[facility] LABORATORYCLIA [id number] [address] [place] Nucleated RBC (Bld) [#/Vol] 10*3/uL Normal <0.01 [facility] Comment on above: Order Comment: Speci men Type: BLOOD SPECIMENOrdering Facility: [facility] Address: [address] [place] [address] Performed By: #### 5 8410-2 ####[facility] LABORATORYCLIA [id number] [address] [place] Platelet mean volume (Bld) [Entitic vol] 10.5 fL Normal 9.0-12.7 [facility] Comment on above: Order Comment: Speci men Type: BLOOD SPECIMENOrdering Facility: [facility] Address: [address] [place] [address] Performed By: #### 5 8410-2 ####[facility] LABORATORYCLIA [id number] [address] [place] Platelets (Bld) [#/Vol] 311 10*3/uL Normal 150-400 [facility] Comment on above: Order Comment: Speci men Type: BLOOD SPECIMENOrdering Facility: [facility] Address: [address] [place] [address] Performed By: #### 5 8410-2 ####[facility] LABORATORYCLIA [id number] [address] [place] RBC (Bld) [#/Vol] 3.35 10*6/uL Low 4.20-6.00 [facility] Comment on above: Order Comment: Speci men Type: BLOOD SPECIMENOrdering Facility: [facility] Address: [address] [place] [address] Performed By: #### 5 8410-2 ####[facility] LABORATORYCLIA [id number] [address] [place] WBC (Bld) [#/Vol] 9.57 10*3/uL Normal 3.70-11.00 [facility] Comment on above: Order Comment: Speci men Type: BLOOD SPECIMENOrdering Facility: [facility] Address: [address] [place] [address] Performed By: #### 5 8410-2 ####[facility] LABORATORYCLIA [id number] [place] [address] [place] Magnesium SerPl-mCncon 06-25 Magnesium [Mass/Vol] 2.4 mg/dL High 1.7-2.3 [facility] Comment on above: Order Comment: Speci men Type: BLOOD SPECIMENOrdering Facility: [facility] Address: [address] [place] [address] Performed By: #### 2 4321-2, 82541-1 ####[facility] LABORATORYCLIA [id number] [place] [address] [place] Basic metabolic 2000 panelon 06-24-2021 Anion gap [Moles/Vol] 9 mmol/L Normal -18 [facility] Comment on above: Order Comment: Speci men Type: BLOOD SPECIMENOrdering Facility: [facility] Address: [address] [place] [address] Performed By: #### 1 9123-9, 54743-7 ####[facility] LABORATORYCLIA [id number] [place] [address] [place] Calcium [Mass/Vol] 8.6 mg/dL Normal 8.5-10.2 [facility] Comment on above: Order Comment: Speci men Type: BLOOD SPECIMENOrdering Facility: [facility] Address: [address] [place] [address] Performed By: #### 1 9123-9, 61095-5 ####[facility] LABORATORYCLIA [id number] [address] [place] Chloride [Moles/Vol] 103 mmol/L Normal 97-105 [facility] Comment on above: Order Comment: Speci men Type: BLOOD SPECIMENOrdering Facility: [facility] Address: [address] [place], [place] [id number] Performed By: #### 1 9123-9, 26597-4 ####[facility] LABORATORYCLIA [id number] [address] [place] CO2 [Moles/Vol] 26 mmol/L Normal 22-30 [facility] Comment on above: Order Comment: Speci men Type: BLOOD SPECIMENOrdering Facility: [facility] Address: [address] [place] [address] Performed By: #### 1 91239, 25730-5 ####[facility] LABORATORYCLIA [id number] [address] [place] Creatinine [Mass/Vol] 0.60 mg/dL Low 0.73-1.22 [facility] Comment on above: Order Comment: Speci men Type: BLOOD SPECIMENOrdering Facility: [facility] Address: [address] [place] [address] Performed By: #### 1 91239, 52044-5 ####[facility] LABORATORYCLIA [id number] [address] [place] GFR/1.73 sq M.predicted MDRD (S/P/Bld) [Vol rate/Area] mL/min/{1.73_m2} Normal [facility] Comment on above: Order Comment: Speci [facility] Type: BLOOD SPECIMENOrdering Facility: [facility] Address: [address] [place] [address] Result Comment: >60e GFR (Estimated GFR) Units [...] actual GFR. Performed By: #### 1 9123-9, 10514-7 ####[facility] SERVICESCLIA [id number] [place] [address] [place] Glucose [Mass/Vol] 126 mg/dL High 74-99 [facility] Comment on above: Order Comment: Speci men Type: BLOOD SPECIMENOrdering Facility: [facility] Address: [address] [place] [address] Result Comment: The [place] [employer] (ADA) provides guidance for cutoff [...] Standards of Medical Care in Diabetes 2016, [place] [employer]. Diabetes Care. 2016.39(Suppl 1). Performed By: #### 1 9123-9, 88736-2 ####[facility] SERVICESCLIA [id number] [place] [address] [place] Potassium [Moles/Vol] 3.9 mmol/L Normal 3.7-5.1 [facility] Comment on above: Order Comment: Speci men Type: BLOOD SPECIMENOrdering Facility: [facility] Address: [address] [place] [address] Performed By: #### 1 9123-9, 90692-2 ####[facility] LABORATORYCLIA [id number] [place] [address] [place] Sodium [Moles/Vol] 138 mmol/L Normal 136-144 [facility] Comment on above: Order Comment: Johni men Type: BLOOD SPECIMENOrdering Facility: [facility] Address: [address] [address] Performed By: #### 1 9123-9, 07697-9 ####[facility] LABORATORYCLIA [id number] [place] [address] [place] Urea nitrogen [Mass/Vol] 24 mg/dL Normal 9-24 [facility] Comment on above: Order Comment: Speci men Type: BLOOD SPECIMENOrdering Facility: [facility] Address: [address] [place] [address] Performed By: #### 1 9123-9, 37839-2 ####[facility] LABORATORYCLIA [id number] [address] [place] CASE MANAGEMon 06-24-2021 CASE MANAGEM Normal [facility] CASE MANAGEM Normal [facility] CASE MANAGEM Normal [facility] CBC panel Auto (Bld)on 06-24 Erythrocyte distribution width (RBC) [Ratio] 16.1 % High 11.5-15.0 [facility] Comment on above: Order Comment: Speci men Type: BLOOD SPECIMENOrdering Facility: [facility] Address: [address] [place] [address] Performed By: #### 5 8410-2 ####[facility] LABORATORYCLIA [id number] [address] [place] Hematocrit (Bld) [Volume fraction] 31.7 % Low 39.0-51.0 [facility] Comment on above: Order Comment: Speci men Type: BLOOD SPECIMENOrdering Facility: [facility] Address: [address] [place] [address] Performed By: #### 5 8410-2 ####[facility] LABORATORYCLIA [id number] [address] [place] Hemoglobin (Bld) [Mass/Vol] 9.7 g/dL Low 13.0-17.0 [facility] Comment on above: Order Comment: Speci men Type: BLOOD SPECIMENOrdering Facility: [facility] Address: [address] [place] [address] Performed By: #### 5 8410-2 ####[facility] LABORATORYCLIA [id number] [address] [place] MCH (RBC) [Entitic mass] 28.0 pg Normal 26.0-34.0 [facility] Comment on above: Order Comment: Speci men Type: BLOOD SPECIMENOrdering Facility: [facility] Address: [address] [place] [address] Performed By: #### 5 8410-2 ####[facility] LABORATORYCLIA [id number] [address] STATES [facility] MCHC (RBC) [Mass/Vol] 30.6 g/dL Normal 30.5-36.0 [facility] Comment on above: Order Comment: Speci men Type: BLOOD SPECIMENOrdering Facility: [facility] Address: [address] [place] [address] Performed By: #### 5 8410-2 ####[facility] LABORATORYCLIA [id number] [address] [place] MCV (RBC) [Entitic vol] 91.4 fL Normal 80.0-100.0 [facility] Comment on above: Order Comment: Speci men Type: BLOOD SPECIMENOrdering Facility: [facility] Address: [address] [place] [address] Performed By: #### 5 8410-2 ####[facility] LABORATORYCLIA [id number] [address] Nucleated RBC (Bld) [#/Vol] 10*3/uL Normal <0.01 [facility] Comment on above: Order Comment: Speci men Type: BLOOD SPECIMENOrdering Facility: [facility] Address: [address] [place] [address] Performed By: #### 5 8410-2 ####[facility] LABORATORYCLIA [id number] [address] Platelet mean volume (Bld) [Entitic vol] 11.0 fL Normal 9.0-12.7 [facility] Comment on above: Order Comment: Speci men Type: BLOOD SPECIMENOrdering Facility: [facility] Address: [address] [place] [address] Performed By: #### 5 8410-2 ####[facility] LABORATORYCLIA [id number] [address] STATES [facility] Platelets (Bld) [#/Vol] 358 10*3/uL Normal 150-400 [facility] Comment on above: Order Comment: Speci men Type: BLOOD SPECIMENOrdering Facility: [facility] Address: [address] [place] [address] Performed By: #### 5 8410-2 ####[facility] LABORATORYCLIA [id number] [address] [facility] RBC (Bld) [#/Vol] 3.47 10*6/uL Low 4.20-6.00 [facility] Comment on above: Order Comment: Speci men Type: BLOOD SPECIMENOrdering Facility: [facility] Address: [address] [place] [address] Performed By: #### 5 8410-2 ####[facility] LABORATORYCLIA [id number] [address] WBC (Bld) [#/Vol] 10.07 10*3/uL Normal 3.70-11.00 [facility] Comment on above: Order Comment: Speci men Type: BLOOD SPECIMENOrdering Facility: [facility] Address: [address] [place] [address] Performed By: #### 5 8410-2 ####[facility] LABORATORYCLIA [id number] [address] Magnesium SerPl-mCncon 06-24 Magnesium [Mass/Vol] 2.3 mg/dL Normal 1.7-2.3 [facility] Comment on above: Order Comment: Speci men Type: BLOOD SPECIMENOrdering Facility: [facility] Address: [address] [place] [address] Performed By: #### 1 9123-9, 17821-2 ####[facility] LABORATORYCLIA [id number] [address] ALLIED HEALTHon 06-23-2021 ALLIED HEALTH Normal [facility] Basic metabolic 2000 panelon 06-23-2021 Anion gap [Moles/Vol] 9 mmol/L Normal 9-18 [facility] Comment on above: Order Comment: Speci men Type: BLOOD SPECIMENOrdering Facility: [facility] Address: [address] [place] [address] Performed By: #### 1 9123-9, 28658-2 ####[facility] LABORATORYCLIA [id number] [place] [address] [place] Calcium [Mass/Vol] 8.4 mg/dL Low 8.5-10.2 [facility] Comment on above: Order Comment: Speci men Type: BLOOD SPECIMENOrdering Facility: [facility] Address: [address] [place] [address] Performed By: #### 1 9123-9, 17879-3 ####[facility] LABORATORYCLIA [id number] [place] [address] [place] Chloride [Moles/Vol] 104 mmol/L Normal 97-105 [facility] Comment on above: Order Comment: Speci men Type: BLOOD SPECIMENOrdering Facility: [facility] Address: [address] [place] [address] Performed By: #### 1 9123-9, 73739-8 ####[facility] LABORATORYCLIA [id number] [place] [address] [place] CO2 [Moles/Vol] 26 mmol/L Normal 22-30 [facility] Comment on above: Order Comment: Speci men Type: BLOOD SPECIMENOrdering Facility: [facility] Address: [address] [place] [address] Performed By: #### 1 9123-9, 50224-6 ####[facility] LABORATORYCLIA [id number] [place] [address] [place] Creatinine [Mass/Vol] 0.62 mg/dL Low 0.73-1.22 [facility] Comment on above: Order Comment: Speci men Type: BLOOD SPECIMENOrdering Facility: [facility] Address: [address] [phone] Performed By: #### 1 9123-9, 45653-1 ####[facility] HOSPITALIA [id number] [place] [address] [place] GFR/1.73 sq M.predicted MDRD (S/P/Bld) [Vol rate/Area] mL/min/{1.73_m2} Normal [facility] Comment on above: Order Comment: Shira feldman Type: BLOOD SPECIMENOrdering Facility: [facility] Address: [address] [place], [place] [address] Result Comment: >60e GFR (Estimated GFR) Units [...] actual GFR. Performed By: #### 1 9123-9, 55318-3 ####[facility] HOSPITALIA [id number] [place] [address] [place] Glucose [Mass/Vol] 111 mg/dL High 74-99 [facility] Comment on above: Order Comment: Johncara feldman Type: BLOOD SPECIMENOrdering Facility: [facility] Address: [address] [phone] Result Comment: The [place] [employer] (ADA) provides guidance for cutoff [...] Standards of Medical Care in Diabetes 2016, [place] [employer]. Diabetes Care. 2016.39(Suppl 1). Performed By: #### 1 9123-9, 66595-3 ####[facility] LABORATORYCLIA [id number] [place] [address] [place] Potassium [Moles/Vol] 4.1 mmol/L Normal 3.7-5.1 [facility] Comment on above: Order Comment: Speci men Type: BLOOD SPECIMENOrdering Facility: [facility] Address: [address] [place] [address] Performed By: #### 1 9123-9, 18020-4 ####[facility] LABORATORYCLIA [id number] [address] STATES [facility] Sodium [Moles/Vol] 139 mmol/L Normal 136-144 [facility] Comment on above: Order Comment: Johni francia Type: BLOOD SPECIMENOrdering Facility: [facility] Address: [address] [place] [address] Performed By: #### 1 9123-9, 23056-4 ####[facility] LABORATORYCLIA [id number] [address] STATES [facility] Urea nitrogen [Mass/Vol] 26 mg/dL High 9-24 [facility] Comment on above: Order Comment: Shira feldman Type: BLOOD SPECIMENOrdering Facility: [facility] Address: [address] [place] [address] Performed By: #### 1 9123-9, 65527-0 ####[facility] LABORATORYCLIA [id number] [address] [place] CASE MANAGEMon 06-23-2021 CASE MANAGEM Normal [facility] CBC panel Auto (Bld)on 06-23 Erythrocyte distribution width (RBC) [Ratio] 16.0 % High 11.5-15.0 [facility] Comment on above: Order Comment: Johni men Type: BLOOD SPECIMENOrdering Facility: [facility] Address: [address] [address] Performed By: #### 5 8410-2 ####[facility] LABORATORYCLIA [id number] [address] Hematocrit (Bld) [Volume fraction] 31.1 % Low 39.0-51.0 [facility] Comment on above: Order Comment: Speci men Type: BLOOD SPECIMENOrdering Facility: [facility] Address: [address] [place] [address] Performed By: #### 5 8410-2 ####[facility] LABORATORYCLIA [id number] [address] Hemoglobin (Bld) [Mass/Vol] 9.5 g/dL Low 13.0-17.0 [facility] Comment on above: Order Comment: Speci men Type: BLOOD SPECIMENOrdering Facility: [facility] Address: [address] [place] [address] Performed By: #### 5 8410-2 ####[facility] LABORATORYCLIA [id number] [address] MCH (RBC) [Entitic mass] 28.1 pg Normal 26.0-34.0 [facility] Comment on above: Order Comment: Speci men Type: BLOOD SPECIMENOrdering Facility: [facility] Address: [address] [place] [address] Performed By: #### 5 8410-2 ####[facility] LABORATORYCLIA [id number] [address] MCHC (RBC) [Mass/Vol] 30.5 g/dL Normal 30.5-36.0 [facility] Comment on above: Order Comment: Speci men Type: BLOOD SPECIMENOrdering Facility: [facility] Address: [address] [place] [address] Performed By: #### 5 8410-2 ####[facility] LABORATORYCLIA [id number] [address] MCV (RBC) [Entitic vol] 92.0 fL Normal 80.0-100.0 [facility] Comment on above: Order Comment: Speci men Type: BLOOD SPECIMENOrdering Facility: [facility] Address: [address] [address] Performed By: #### 5 8410-2 ####[facility] LABORATORYCLIA [id number] [address] [place] Nucleated RBC (Bld) [#/Vol] 10*3/uL Normal <0.01 [facility] Comment on above: Order Comment: Speci men Type: BLOOD SPECIMENOrdering Facility: [facility] Address: [address] [place] [address] Performed By: #### 5 8410-2 ####[facility] LABORATORYCLIA [id number] [address] [place] Platelet mean volume (Bld) [Entitic vol] 11.0 fL Normal 9.0-12.7 [facility] Comment on above: Order Comment: Speci men Type: BLOOD SPECIMENOrdering Facility: [facility] Address: [address] [place] [address] Performed By: #### 5 8410-2 ####[facility] LABORATORYCLIA [id number] [address] [place] Platelets (Bld) [#/Vol] 361 10*3/uL Normal 150-400 [facility] Comment on above: Order Comment: Speci men Type: BLOOD SPECIMENOrdering Facility: [facility] Address: [address] Performed By: #### 5 8410-2 ####[facility] LABORATORYCLIA [id number] [address] [place] RBC (Bld) [#/Vol] 3.38 10*6/uL Low 4.20-6.00 [facility] Comment on above: Order Comment: Speci men Type: BLOOD SPECIMENOrdering Facility: [facility] Address: [address] [place] [address] Performed By: #### 5 8410-2 ####[facility] LABORATORYCLIA [id number] [address] WBC (Bld) [#/Vol] 9.02 10*3/uL Normal 3.70-11.00 [facility] Comment on above: Order Comment: Speci men Type: BLOOD SPECIMENOrdering Facility: [facility] Address: [address] [place] [address] Performed By: #### 5 8410-2 ####[facility] LABORATORYCLIA [id number] [address] CONSULT PROGon 06-23-2021 CONSULT PROG Normal [facility] CONSULT PROG Normal [facility] Magnesium SerPl-mCncon 06-23 Magnesium [Mass/Vol] 2.4 mg/dL High 1.7-2.3 [facility] Comment on above: Order Comment: Speci men Type: BLOOD SPECIMENOrdering Facility: [facility] Address: [address] [place] [address] Performed By: #### 1 9123-9, 68652-5 ####[facility] SERVICESCLIA [id number] [address] THERAPY NTon 06-23-2021 THERAPY NT Normal [facility] Vancomycin random [Mass/Vol] on 06-23-2021 Vancomycin [Mass/Vol] 22.8 ug/mL High 10.0-20.0 [facility] Comment on above: Order Comment: Speci men Type: BLOOD SPECIMENOrdering Facility: [facility] Address: [address] [place] [address] Result Comment: Refe rence ranges and high/low indicator flags are provided as general guidelines only. The treating physician must determine appropriate target levels/dosing based on the specific clinical situation. Performed By: #### 4 091-5 ####[facility] LABORATORYCLIA [id number] [address] [place] XR MOD BARIUM SWALLOW W SPEE Lore 06-23-2021 XR MOD BARIUM SWALLOW W SPEECH Normal [facility] Basic metabolic 2000 panelon 06-22-2021 Anion gap [Moles/Vol] 6 mmol/L Low 9-18 [facility] Comment on above: Order Comment: Speci men Type: BLOOD SPECIMENOrdering Facility: [facility] Address: [address] [place] [address] Performed By: #### 2 4321-2, ####[facility] LABORATORYCLIA [id number] [place] [address] [place] Calcium [Mass/Vol] 8.5 mg/dL Normal 8.5-10.2 [facility] Comment on above: Order Comment: Speci men Type: BLOOD SPECIMENOrdering Facility: [facility] Address: [address] [place] [address] Performed By: #### 2 4320-2, ####[facility] LABORATORYCLIA [id number] [place] [address] [place] Chloride [Moles/Vol] 105 mmol/L Normal 97-105 [facility] Comment on above: Order Comment: Speci men Type: BLOOD SPECIMENOrdering Facility: [facility] Address: [address] [place] [address] Performed By: #### 2 4320-2, ####[facility] LABORATORYCLIA [id number] [place] [address] [place] CO2 [Moles/Vol] 26 mmol/L Normal 22-30 [facility] Comment on above: Order Comment: Speci men Type: BLOOD SPECIMENOrdering Facility: [facility] Address: [address] [place] [address] Performed By: #### 2 4320-2, ####[facility] LABORATORYCLIA [id number] [place] [address] [place] Creatinine [Mass/Vol] 0.56 mg/dL Low 0.73-1.22 [facility] Comment on above: Order Comment: Speci men Type: BLOOD SPECIMENOrdering Facility: [facility] Address: [address] [phone] Performed By: #### 2 4321-2, 03904-3 ####[facility] HOSPITALIA [id number] [address] [id number] [place] GFR/1.73 sq M.predicted MDRD (S/P/Bld) [Vol rate/Area] mL/min/{1.73_m2} Normal [facility] Comment on above: Order Comment: Shira feldman Type: BLOOD SPECIMENOrdering Facility: [facility] Address: [address] [phone] Result Comment: >60e GFR (Estimated GFR) Units [...] actual GFR. Performed By: #### 2 4321-2, 45235-8 ####[facility] HOSPITALIA [id number] [address] [id number] [place] Glucose [Mass/Vol] 120 mg/dL High 74-99 [facility] Comment on above: Order Comment: Shira feldman Type: BLOOD SPECIMENOrdering Facility: [facility] Address: [address] [phone] Result Comment: The [place] [employer] (ADA) provides guidance for cutoff [...] Standards of Medical Care in Diabetes 2016, [place] [employer]. Diabetes Care. 2016.39(Suppl 1). Performed By: #### 2 4320-2, ####[facility] LABORATORYCLIA [id number] [place], [place] [id number] [place] [address] [place] [facility] Potassium [Moles/Vol] 4.0 mmol/L Normal 3.7-5.1 [facility] Comment on above: Order Comment: Johni men Type: BLOOD SPECIMENOrdering Facility: [facility] Address: [address] [place] [address] Performed By: #### 2 4320-06, ####[facility] LABORATORYCLIA [id number] [address] STATES [facility] Sodium [Moles/Vol] 137 mmol/L Normal 136-144 [facility] Comment on above: Order Comment: Shira feldman Type: BLOOD SPECIMENOrdering Facility: [facility] Address: [address] [place] [address] Performed By: #### 2 4320-06, ####[facility] LABORATORYCLIA [id number] [address] STATES [facility] Urea nitrogen [Mass/Vol] 25 mg/dL High 9-24 [facility] Comment on above: Order Comment: Shira feldman Type: BLOOD SPECIMENOrdering Facility: [facility] Address: [address] [place] [address] Performed By: #### 2 4320-06, ####[facility] LABORATORYCLIA [id number] [place] [address] [place] CASE MANAGEMon 06-22-2021 CASE MANAGEM Normal [facility] CBC panel Auto (Bld)on 06-22 Erythrocyte distribution width (RBC) [Ratio] 16.0 % High 11.5-15.0 [facility] Comment on above: Order Comment: Shira feldman Type: BLOOD SPECIMENOrdering Facility: [facility] Address: [address] [address] Performed By: #### 5 8410-2 ####[facility] LABORATORYCLIA [id number] [address] Hematocrit (Bld) [Volume fraction] 30.5 % Low 39.0-51.0 [facility] Comment on above: Order Comment: Speci men Type: BLOOD SPECIMENOrdering Facility: [facility] Address: [address] [place] [address] Performed By: #### 5 8410-2 ####[facility] LABORATORYCLIA [id number] [address] Hemoglobin (Bld) [Mass/Vol] 9.3 g/dL Low 13.0-17.0 [facility] Comment on above: Order Comment: Speci men Type: BLOOD SPECIMENOrdering Facility: [facility] Address: [address] [place] [address] Performed By: #### 5 8410-2 ####[facility] LABORATORYCLIA [id number] [address] MCH (RBC) [Entitic mass] 28.4 pg Normal 26.0-34.0 [facility] Comment on above: Order Comment: Speci men Type: BLOOD SPECIMENOrdering Facility: [facility] Address: [address] [place] [address] Performed By: #### 5 8410-2 ####[facility] LABORATORYCLIA [id number] [address] MCHC (RBC) [Mass/Vol] 30.5 g/dL Normal 30.5-36.0 [facility] Comment on above: Order Comment: Speci men Type: BLOOD SPECIMENOrdering Facility: [facility] Address: [address] [place] [address] Performed By: #### 5 8410-2 ####[facility] LABORATORYCLIA [id number] [address] MCV (RBC) [Entitic vol] 93.3 fL Normal 80.0-100.0 [facility] Comment on above: Order Comment: Speci men Type: BLOOD SPECIMENOrdering Facility: [facility] Address: [facility] [address] Performed By: #### 5 8410-2 ####[facility] LABORATORYCLIA [id number] [address] [place] Nucleated RBC (Bld) [#/Vol] 10*3/uL Normal <0.01 [facility] Comment on above: Order Comment: Speci men Type: BLOOD SPECIMENOrdering Facility: [facility] Address: [address] [place] [address] Performed By: #### 5 8410-2 ####[facility] LABORATORYCLIA [id number] [address] [place] Platelet mean volume (Bld) [Entitic vol] 11.5 fL Normal 9.0-12.7 [facility] Comment on above: Order Comment: Speci men Type: BLOOD SPECIMENOrdering Facility: [facility] Address: [address] [place] [address] Performed By: #### 5 8410-2 ####[facility] LABORATORYCLIA [id number] [address] [place] Platelets (Bld) [#/Vol] 346 10*3/uL Normal 150-400 [facility] Comment on above: Order Comment: Speci men Type: BLOOD SPECIMENOrdering Facility: [facility] Address: [address] [place], [place] [address] Performed By: #### 5 8410-2 ####[facility] LABORATORYCLIA [id number] [address] [place] RBC (Bld) [#/Vol] 3.27 10*6/uL Low 4.20-6.00 [facility] Comment on above: Order Comment: Speci men Type: BLOOD SPECIMENOrdering Facility: [facility] Address: [address] [place], [place] [address] Performed By: #### 5 8410-2 ####[facility] LABORATORYCLIA [id number] [place] [address] [place] WBC (Bld) [#/Vol] 9.44 10*3/uL Normal 3.70-11.00 [facility] Comment on above: Order Comment: Speci men Type: BLOOD SPECIMENOrdering Facility: [facility] Address: [address] [place] [address] Performed By: #### 5 8410-2 ####[facility] LABORATORYCLIA [id number] [address] [place] HEMOGLOBIN (HGB)on Hemoglobin (Bld) [Mass/Vol] 9.7 g/dL Low 13.0-17.0 [facility] Comment on above: Order Comment: Speci men Type: BLOOD SPECIMENOrdering Facility: [facility] Address: [address] [place] [address] Performed By: #### H GB ####[facility] LABORATORYCLIA [id number] [address] [place] Magnesium SerPl-mCncon 06-22 Magnesium [Mass/Vol] 2.4 mg/dL High 1.7-2.3 [facility] Comment on above: Order Comment: Speci men Type: BLOOD SPECIMENOrdering Facility: [facility] Address: [address] [place] [address] Performed By: #### 2 4321-2, 64922-9 ####[facility] LABORATORYCLIA [id number] [place] [address] [place] THERAPY NTon 06-22-2021 THERAPY NT Normal [facility] THERAPY NT Normal [facility] aPTT PPPon 06-22-2021 aPTT Coag (PPP) [Time] 62.3 s High 23.0-32.4 [facility] Comment on above: Order Comment: Speci men Type: BLOOD SPECIMENOrdering Facility: [facility] Address: [address] [place] [address] Performed By: #### 1 4979-9 ####[facility] LABORATORYCLIA [id number] [place] [address] [place] ALLIED HEALTHon 06-21-2021 ALLIED HEALTH Normal [facility] Basic metabolic 2000 panelon 06-21-2021 Anion gap [Moles/Vol] 8 mmol/L Low 9-18 [facility] Comment on above: Order Comment: Speci men Type: BLOOD SPECIMENOrdering Facility: [facility] Address: [address] [place] [address] Performed By: #### 2 4321-2, ####[facility] LABORATORYCLIA [id number] [place] [address] [place] Calcium [Mass/Vol] 8.2 mg/dL Low 8.5-10.2 [facility] Comment on above: Order Comment: Speci men Type: BLOOD SPECIMENOrdering Facility: [facility] Address: [address] [place] [address] Performed By: #### 2 432-2, ####[facility] LABORATORYCLIA [id number] [place] [address] [place] Chloride [Moles/Vol] 108 mmol/L High 97-105 [facility] Comment on above: Order Comment: Speci men Type: BLOOD SPECIMENOrdering Facility: [facility] Address: [address] [place], [place] [address] Performed By: #### 2 432-2, ####[facility] LABORATORYCLIA [id number] [address] [id number] [place] CO2 [Moles/Vol] 24 mmol/L Normal 22-30 [facility] Comment on above: Order Comment: Speci men Type: BLOOD SPECIMENOrdering Facility: [facility] Address: [address] [place], [place] [address] Performed By: #### 2 4321-2, ####[facility] LABORATORYCLIA [id number] [place] [address] [place] Creatinine [Mass/Vol] 0.61 mg/dL Low 0.73-1.22 [facility] Comment on above: Order Comment: Shira feldman Type: BLOOD SPECIMENOrdering Facility: [facility] Address: [address] [phone] Performed By: #### 2 4321-2, ####[facility] LABORATORYCLIA [id number] [place] [address] [place] GFR/1.73 sq M.predicted MDRD (S/P/Bld) [Vol rate/Area] mL/min/{1.73_m2} Normal [facility] Comment on above: Order Comment: Johncara feldman Type: BLOOD SPECIMENOrdering Facility: [facility] Address: [address] [place] [address] Result Comment: >60e GFR (Estimated GFR) Units [...] actual GFR. Performed By: #### 2 4321-2, ####[facility] LABORATORYCLIA [id number] [address] [place] Glucose [Mass/Vol] 211 mg/dL High 74-99 [facility] Comment on above: Order Comment: Shira feldman Type: BLOOD SPECIMENOrdering Facility: [facility] Address: [address] [place], [place] [phone] Result Comment: The [place] [employer] (ADA) provides guidance for cutoff [...] Standards of Medical Care in Diabetes 2016, [place] [employer]. Diabetes Care. 2016.39(Suppl 1). Performed By: #### 2 432-, ####[facility] LABORATORYCLIA [id number] [address] [facility] Potassium [Moles/Vol] 4.3 mmol/L Normal 3.7-5.1 [facility] Comment on above: Order Comment: Shira feldman Type: BLOOD SPECIMENOrdering Facility: [facility] Address: [address] [place] [address] Performed By: #### 2 43205-08, ####[facility] SERVICESCLIA [id number] [address] Sodium [Moles/Vol] 140 mmol/L Normal 136-144 [facility] Comment on above: Order Comment: Shira feldman Type: BLOOD SPECIMENOrdering Facility: [facility] Address: [address] [place] [address] Performed By: #### 2 4320-06, ####[facility] LABORATORYCLIA [id number] [address] [place] [facility] Urea nitrogen [Mass/Vol] 26 mg/dL High 9-24 [facility] Comment on above: Order Comment: Shira feldman Type: BLOOD SPECIMENOrdering Facility: [facility] Address: [address] [place] [address] Performed By: #### 2 4320-06, ####[facility] LABORATORYCLIA [id number] [address] CBC panel Auto (Bld)on 06-21 Erythrocyte distribution width (RBC) [Ratio] 16.1 % High 11.5-15.0 [facility] Comment on above: Order Comment: Speci men Type: BLOOD SPECIMENOrdering Facility: [facility] Address: [address] [place] [address] Performed By: #### 5 8410-2 ####[facility] LABORATORYCLIA [id number] [address] Hematocrit (Bld) [Volume fraction] 29.7 % Low 39.0-51.0 [facility] Comment on above: Order Comment: Speci men Type: BLOOD SPECIMENOrdering Facility: [facility] Address: [address] [place] [address] Performed By: #### 5 8410-2 ####[facility] LABORATORYCLIA [id number] [address] [facility] Hemoglobin (Bld) [Mass/Vol] 9.2 g/dL Low 13.0-17.0 [facility] Comment on above: Order Comment: Speci men Type: BLOOD SPECIMENOrdering Facility: [facility] Address: [address] [place] [address] Performed By: #### 5 8410-2 ####[facility] LABORATORYCLIA [id number] [address] MCH (RBC) [Entitic mass] 28.8 pg Normal 26.0-34.0 [facility] Comment on above: Order Comment: Speci men Type: BLOOD SPECIMENOrdering Facility: [facility] Address: [address] [place] [address] Performed By: #### 5 8410-2 ####[facility] LABORATORYCLIA [id number] [address] [place] MCHC (RBC) [Mass/Vol] 31.0 g/dL Normal 30.5-36.0 [facility] Comment on above: Order Comment: Speci men Type: BLOOD SPECIMENOrdering Facility: [facility] Address: [address] [place] [address] Performed By: #### 5 8410-2 ####[facility] LABORATORYCLIA [id number] [address] MCV (RBC) [Entitic vol] 93.1 fL Normal 80.0-100.0 [facility] Comment on above: Order Comment: Speci men Type: BLOOD SPECIMENOrdering Facility: [facility] Address: [address] [place] [address] Performed By: #### 5 8410-2 ####[facility] LABORATORYCLIA [id number] [address] Nucleated RBC (Bld) [#/Vol] 10*3/uL Normal <0.01 [facility] Comment on above: Order Comment: Speci men Type: BLOOD SPECIMENOrdering Facility: [facility] Address: [address] [place] [address] Performed By: #### 5 8410-2 ####[facility] LABORATORYCLIA [id number] [address] Platelet mean volume (Bld) [Entitic vol] 11.6 fL Normal 9.0-12.7 [facility] Comment on above: Order Comment: Speci men Type: BLOOD SPECIMENOrdering Facility: [facility] Address: [address] [place] [address] Performed By: #### 5 8410-2 ####[facility] LABORATORYCLIA [id number] [address] Platelets (Bld) [#/Vol] 347 10*3/uL Normal 150-400 [facility] Comment on above: Order Comment: Speci men Type: BLOOD SPECIMENOrdering Facility: [facility] Address: [address] [place] [address] Performed By: #### 5 8410-2 ####[facility] LABORATORYCLIA [id number] [address] RBC (Bld) [#/Vol] 3.19 10*6/uL Low 4.20-6.00 [facility] Comment on above: Order Comment: Speci men Type: BLOOD SPECIMENOrdering Facility: [facility] Address: [address] [place] [address] Performed By: #### 5 8410-2 ####[facility] LABORATORYCLIA [id number] [address] WBC (Bld) [#/Vol] 10.29 10*3/uL Normal 3.70-11.00 [facility] Comment on above: Order Comment: Speci men Type: BLOOD SPECIMENOrdering Facility: [facility] Address: [address] [place] [address] Performed By: #### 5 8410-2 ####[facility] LABORATORYCLIA [id number] [address] CONSULT PROGon 06-21-2021 CONSULT PROG Normal [facility] CONSULT PROG Normal [facility] Magnesium SerPl-mCncon 06-21 Magnesium [Mass/Vol] 2.5 mg/dL High 1.7-2.3 [facility] Comment on above: Order Comment: Speci men Type: BLOOD SPECIMENOrdering Facility: [facility] Address: [address] [place] [address] Performed By: #### 2 4321-2, 42143-7 ####[facility] LABORATORYCLIA [id number] [address] [place] NUTRITIONon 06-21-2021 NUTRITION Normal [facility] XR CHEST 1V FRONTALon 2021 XR CHEST 1V FRONTAL Normal [facility] aPTT PPPon 06-21-2021 aPTT Coag (PPP) [Time] 68.5 s High 23.0-32.4 [facility] Comment on above: Order Comment: Speci men Type: BLOOD SPECIMENOrdering Facility: [facility] Address: [address] [place] [address] Performed By: #### 1 4979-9 ####[facility] LABORATORYCLIA [id number] [address] [place] aPTT Coag (PPP) [Time] 57.8 s High 23.0-32.4 [facility] Comment on above: Order Comment: Speci men Type: BLOOD SPECIMENOrdering Facility: [facility] Address: [address] [place] [address] Performed By: #### 1 4979-9 ####[facility] LABORATORYCLIA [id number] [place] [address] [place] Basic metabolic 2000 panelon 06-20-2021 Anion gap [Moles/Vol] 9 mmol/L Normal 9-18 [facility] Comment on above: Order Comment: Speci men Type: BLOOD SPECIMENOrdering Facility: [facility] Address: [address] [place] [address] Performed By: #### 2 4321-2, 51725-2 ####[facility] LABORATORYCLIA [id number] [place] [address] [place] Calcium [Mass/Vol] 8.3 mg/dL Low 8.5-10.2 [facility] Comment on above: Order Comment: Speci men Type: BLOOD SPECIMENOrdering Facility: [facility] Address: [address] [place] [address] Performed By: #### 2 432-2, ####[facility] LABORATORYCLIA [id number] [address] [place] Chloride [Moles/Vol] 111 mmol/L High 97-105 [facility] Comment on above: Order Comment: Speci men Type: BLOOD SPECIMENOrdering Facility: [facility] Address: [address] [place] [address] Performed By: #### 2 4321-2, ####[facility] LABORATORYCLIA [id number] [place] [address] [place] CO2 [Moles/Vol] 24 mmol/L Normal 22-30 [facility] Comment on above: Order Comment: Speci men Type: BLOOD SPECIMENOrdering Facility: [facility] Address: [address] [place] [address] Performed By: #### 2 432-2, ####[facility] LABORATORYCLIA [id number] [place] [address] [place] Creatinine [Mass/Vol] 0.64 mg/dL Low 0.73-1.22 [facility] Comment on above: Order Comment: [facility] Type: BLOOD SPECIMENOrdering Facility: [facility] Address: [address] [place] [address] Performed By: #### 2 43205-08, ####[facility] LABORATORYCLIA [id number] [place] [address] [place] GFR/1.73 sq M.predicted MDRD (S/P/Bld) [Vol rate/Area] mL/min/{1.73_m2} Normal [facility] Comment on above: Order Comment: [facility] Type: BLOOD SPECIMENOrdering Facility: [facility] Address: [address] [place] [address] Result Comment: >60e GFR (Estimated GFR) Units [...] actual GFR. Performed By: #### 2 43205-08, ####[facility] LABORATORYCLIA [id number] [place] [address] [place] Glucose [Mass/Vol] 114 mg/dL High 74-99 [facility] Comment on above: Order Comment: [facility] Type: BLOOD SPECIMENOrdering Facility: [facility] Address: [address] [place] [address] Result Comment: The [place] [employer] (ADA) provides guidance for cutoff [...] Standards of Medical Care in Diabetes 2016, [place] [employer]. Diabetes Care. 2016.39(Suppl 1). Performed By: #### 2 4320-06, ####[facility] LABORATORYCLIA [id number] [address] [facility] Potassium [Moles/Vol] 4.1 mmol/L Normal 3.7-5.1 [facility] Comment on above: Order Comment: Speci men Type: BLOOD SPECIMENOrdering Facility: [facility] Address: [address] [place] [address] Performed By: #### 2 4320-06, ####[facility] LABORATORYCLIA [id number] [address] [place] [facility] Sodium [Moles/Vol] 144 mmol/L Normal 136-144 [facility] Comment on above: Order Comment: Shira feldman Type: BLOOD SPECIMENOrdering Facility: [facility] Address: [address] [place] [address] Performed By: #### 2 4320-06, ####[facility] LABORATORYCLIA [id number] [place] [id number] [place] Urea nitrogen [Mass/Vol] 27 mg/dL High 9-24 [facility] Comment on above: Order Comment: Johni francia Type: BLOOD SPECIMENOrdering Facility: [facility] Address: [address] [place] [address] Performed By: #### 2 4320-06, ####[facility] LABORATORYCLIA [id number] [address] [place] CASE MANAGEMon 06-20-2021 CASE MANAGEM Normal [facility] CBC panel Auto (Bld)on 06-20 Erythrocyte distribution width (RBC) [Ratio] 15.9 % High 11.5-15.0 [facility] Comment on above: Order Comment: Speci men Type: BLOOD SPECIMENOrdering Facility: [facility] Address: [address] [place] [address] Performed By: #### 5 8410-2 ####[facility] LABORATORYCLIA [id number] [address] Hematocrit (Bld) [Volume fraction] 31.0 % Low 39.0-51.0 [facility] Comment on above: Order Comment: Speci men Type: BLOOD SPECIMENOrdering Facility: [facility] Address: [address] [place] [address] Performed By: #### 5 8410-2 ####[facility] LABORATORYCLIA [id number] [address] [facility] Hemoglobin (Bld) [Mass/Vol] 9.2 g/dL Low 13.0-17.0 [facility] Comment on above: Order Comment: Speci men Type: BLOOD SPECIMENOrdering Facility: [facility] Address: [address] [place] [address] Performed By: #### 5 8410-2 ####[facility] LABORATORYCLIA [id number] [address] [place] MCH (RBC) [Entitic mass] 27.4 pg Normal 26.0-34.0 [facility] Comment on above: Order Comment: Speci men Type: BLOOD SPECIMENOrdering Facility: [facility] Address: [address] [place] [address] Performed By: #### 5 8410-2 ####[facility] LABORATORYCLIA [id number] [address] [place] MCHC (RBC) [Mass/Vol] 29.7 g/dL Low 30.5-36.0 [facility] Comment on above: Order Comment: Speci men Type: BLOOD SPECIMENOrdering Facility: [facility] Address: [address] [place] [address] Performed By: #### 5 8410-2 ####[facility] LABORATORYCLIA [id number] [address] MCV (RBC) [Entitic vol] 92.3 fL Normal 80.0-100.0 [facility] Comment on above: Order Comment: Speci men Type: BLOOD SPECIMENOrdering Facility: [facility] Address: [address] Performed By: #### 5 8410-2 ####[facility] LABORATORYCLIA [id number] [address] [place] Nucleated RBC (Bld) [#/Vol] 10*3/uL Normal <0.01 [facility] Comment on above: Order Comment: Speci men Type: BLOOD SPECIMENOrdering Facility: [facility] Address: [address] [place] [address] Performed By: #### 5 8410-2 ####[facility] LABORATORYCLIA [id number] [address] Platelet mean volume (Bld) [Entitic vol] 11.5 fL Normal 9.0-12.7 [facility] Comment on above: Order Comment: Speci men Type: BLOOD SPECIMENOrdering Facility: [facility] Address: [address] Performed By: #### 5 8410-2 ####[facility] LABORATORYCLIA [id number] [address] Platelets (Bld) [#/Vol] 343 10*3/uL Normal 150-400 [facility] Comment on above: Order Comment: Speci men Type: BLOOD SPECIMENOrdering Facility: [facility] Address: [address] [place] [address] Performed By: #### 5 8410-2 ####[facility] LABORATORYCLIA [id number] [address] [place] RBC (Bld) [#/Vol] 3.36 10*6/uL Low 4.20-6.00 [facility] Comment on above: Order Comment: Speci men Type: BLOOD SPECIMENOrdering Facility: [facility] Address: [address] [place] [address] Performed By: #### 5 8410-2 ####[facility] LABORATORYCLIA [id number] [address] [place] [facility] WBC (Bld) [#/Vol] 10.71 10*3/uL Normal 3.70-11.00 [facility] Comment on above: Order Comment: Speci men Type: BLOOD SPECIMENOrdering Facility: [facility] Address: [address] [place] [address] Performed By: #### 5 8410-2 ####[facility] LABORATORYCLIA [id number] [address] CONSULT PROGon 06-20-2021 CONSULT PROG Normal [facility] HEMOGLOBIN (HGB)on 2 Hemoglobin (Bld) [Mass/Vol] 9.7 g/dL Low 13.0-17.0 [facility] Comment on above: Order Comment: Speci men Type: BLOOD SPECIMENOrdering Facility: [facility] Address: [address] [place] [address] Performed By: #### H GB ####[facility] LABORATORYCLIA [id number] [address] [place] Magnesium SerPl-mCncon 06-20 Magnesium [Mass/Vol] 2.5 mg/dL High 1.7-2.3 [facility] Comment on above: Order Comment: Speci men Type: BLOOD SPECIMENOrdering Facility: [facility] Address: [address] [place] [address] Performed By: #### 2 4321-2, 99179-1 ####[facility] LABORATORYCLIA [id number] [address] NURSING PROGon 06-20-2021 NURSING PROG Normal [facility] THERAPY NTon 06-20-2021 THERAPY NT Normal [facility] aPTT PPPon 06-20-2021 aPTT Coag (PPP) [Time] 93.5 s High 23.0-32.4 [facility] Comment on above: Order Comment: Speci men Type: BLOOD SPECIMENOrdering Facility: [facility] Address: [address] [place] [address] Performed By: #### 1 4979-9 ####[facility] LABORATORYCLIA [id number] [address] aPTT Coag (PPP) [Time] 47.1 s High 23.0-32.4 [facility] Comment on above: Order Comment: Speci men Type: BLOOD SPECIMENOrdering Facility: [facility] Address: [address] [place] [address] Performed By: #### 1 4979-9 ####[facility] LABORATORYCLIA [id number] [address] [place] [facility] Basic metabolic 2000 panelon 06-19-2021 Anion gap [Moles/Vol] 7 mmol/L Low 9-18 [facility] Comment on above: Order Comment: Speci men Type: BLOOD SPECIMENOrdering Facility: [facility] Address: [address] [place] [address] Performed By: #### 2 4321-2 ####[facility] LABORATORYCLIA [id number] [address] [place] [facility] Calcium [Mass/Vol] 8.1 mg/dL Low 8.5-10.2 [facility] Comment on above: Order Comment: Speci men Type: BLOOD SPECIMENOrdering Facility: [facility] Address: [address] [place] [address] Performed By: #### 2 4321-2 ####[facility] LABORATORYCLIA [id number] [address] Chloride [Moles/Vol] 111 mmol/L High 97-105 [facility] Comment on above: Order Comment: Speccara feldman Type: BLOOD SPECIMENOrdering Facility: [facility] Address: [address] [place] [address] Performed By: #### 2 4321-2 ####[facility] LABORATORYCLIA [id number] [address] [place] CO2 [Moles/Vol] 24 mmol/L Normal 22-30 [facility] Comment on above: Order Comment: Johni men Type: BLOOD SPECIMENOrdering Facility: [facility] Address: [address] [place] [address] Performed By: #### 2 4321-2 ####[facility] LABORATORYCLIA [id number] [address] [place] Creatinine [Mass/Vol] 0.71 mg/dL Low 0.73-1.22 [facility] Comment on above: Order Comment: Johncara feldman Type: BLOOD SPECIMENOrdering Facility: [facility] Address: [address] [place] [address] Performed By: #### 2 4321-2 ####[facility] LABORATORYCLIA [id number] [address] [place] GFR/1.73 sq M.predicted MDRD (S/P/Bld) [Vol rate/Area] mL/min/{1.73_m2} Normal [facility] Comment on above: Order Comment: Johncara feldman Type: BLOOD SPECIMENOrdering Facility: [facility] Address: [address] [place] [address] Result Comment: >60e GFR (Estimated GFR) Units [...] actual GFR. Performed By: #### 2 4321-2 ####[facility] LABORATORYCLIA [id number] [place] [address] [place] Glucose [Mass/Vol] 110 mg/dL High 74-99 [facility] Comment on above: Order Comment: Speci men Type: BLOOD SPECIMENOrdering Facility: [facility] Address: [address] [place] [address] Result Comment: The [place] [employer] (ADA) provides guidance for cutoff [...] Standards of Medical Care in Diabetes 2016, [place] [employer]. Diabetes Care. 2016.39(Suppl 1). Performed By: #### 2 4321-2 ####[facility] LABORATORYCLIA [id number] [place] [address] [place] Potassium [Moles/Vol] 3.7 mmol/L Normal 3.7-5.1 [facility] Comment on above: Order Comment: Speci men Type: BLOOD SPECIMENOrdering Facility: [facility] Address: [address] [address] Performed By: #### 2 4321-2 ####[facility] LABORATORYCLIA [id number] [place] [address] [place] Sodium [Moles/Vol] 142 mmol/L Normal 136-144 [facility] Comment on above: Order Comment: Speci men Type: BLOOD SPECIMENOrdering Facility: [facility] Address: [address] [place] [address] Performed By: #### 2 4321-2 ####[facility] LABORATORYCLIA [id number] [address] [place] Urea nitrogen [Mass/Vol] 26 mg/dL High 9-24 [facility] Comment on above: Order Comment: Speci men Type: BLOOD SPECIMENOrdering Facility: [facility] Address: [address] [place] [address] Performed By: #### 2 4321-2 ####[facility] LABORATORYCLIA [id number] [address] [place] CBC panel Auto (Bld)on 06-19 Erythrocyte distribution width (RBC) [Ratio] 15.7 % High 11.5-15.0 [facility] Comment on above: Order Comment: Speci men Type: BLOOD SPECIMENOrdering Facility: [facility] Address: [address] [place] [address] Performed By: #### 5 8410-2 ####[facility] LABORATORYCLIA [id number] [address] [place] Hematocrit (Bld) [Volume fraction] 30.9 % Low 39.0-51.0 [facility] Comment on above: Order Comment: Speci men Type: BLOOD SPECIMENOrdering Facility: [facility] Address: [address] [place] [address] Performed By: #### 5 8410-2 ####[facility] LABORATORYCLIA [id number] [address] [place] Hemoglobin (Bld) [Mass/Vol] 9.5 g/dL Low 13.0-17.0 [facility] Comment on above: Order Comment: Speci men Type: BLOOD SPECIMENOrdering Facility: [facility] Address: [address] [place] [address] Performed By: #### 5 8410-2 ####[facility] LABORATORYCLIA [id number] [address] [place] MCH (RBC) [Entitic mass] 28.4 pg Normal 26.0-34.0 [facility] Comment on above: Order Comment: Speci men Type: BLOOD SPECIMENOrdering Facility: [facility] Address: [address] [place] [address] Performed By: #### 5 8410-2 ####[facility] LABORATORYCLIA [id number] [address] MCHC (RBC) [Mass/Vol] 30.7 g/dL Normal 30.5-36.0 [facility] Comment on above: Order Comment: Speci men Type: BLOOD SPECIMENOrdering Facility: [facility] Address: [address] [place] [address] Performed By: #### 5 8410-2 ####[facility] LABORATORYCLIA [id number] [address] MCV (RBC) [Entitic vol] 92.2 fL Normal 80.0-100.0 [facility] Comment on above: Order Comment: Speci men Type: BLOOD SPECIMENOrdering Facility: [facility] Address: [address] [place] [address] Performed By: #### 5 8410-2 ####[facility] LABORATORYCLIA [id number] [address] Nucleated RBC (Bld) [#/Vol] 10*3/uL Normal <0.01 [facility] Comment on above: Order Comment: Speci men Type: BLOOD SPECIMENOrdering Facility: [facility] Address: [address] [place] [address] Performed By: #### 5 8410-2 ####[facility] LABORATORYCLIA [id number] [address] Platelet mean volume (Bld) [Entitic vol] 11.7 fL Normal 9.0-12.7 [facility] Comment on above: Order Comment: Speci men Type: BLOOD SPECIMENOrdering Facility: [facility] Address: [address] [place] [address] Performed By: #### 5 8410-2 ####[facility] LABORATORYCLIA [id number] [address] Platelets (Bld) [#/Vol] 323 10*3/uL Normal 150-400 [facility] Comment on above: Order Comment: Speci men Type: BLOOD SPECIMENOrdering Facility: [facility] Address: [address] [place] [address] Performed By: #### 5 8410-2 ####[facility] LABORATORYCLIA [id number] [place] [address] [place] RBC (Bld) [#/Vol] 3.35 10*6/uL Low 4.20-6.00 [facility] Comment on above: Order Comment: Speci men Type: BLOOD SPECIMENOrdering Facility: [facility] Address: [address] [place] [address] Performed By: #### 5 8410-2 ####[facility] LABORATORYCLIA [id number] [address] [facility] WBC (Bld) [#/Vol] 9.53 10*3/uL Normal 3.70-11.00 [facility] Comment on above: Order Comment: Speci men Type: BLOOD SPECIMENOrdering Facility: [facility] Address: [address] [place] [address] Performed By: #### 5 8410-2 ####[facility] LABORATORYCLIA [id number] [address] OF [place] HEMOGLOBIN (HGB)on Hemoglobin (Bld) [Mass/Vol] 9.7 g/dL Low 13.0-17.0 [facility] Comment on above: Order Comment: Speci men Type: BLOOD SPECIMENOrdering Facility: [facility] Address: [address] [place] [address] Performed By: #### H GB ####[facility] LABORATORYCLIA [id number] [address] [facility] Magnesium SerPl-mCncon 06-19 Magnesium [Mass/Vol] 2.5 mg/dL High 1.7-2.3 [facility] Comment on above: Order Comment: Speci men Type: BLOOD SPECIMENOrdering Facility: [facility] Address: [address] [place] [address] Performed By: #### 1 9123-9, 2777-1 ####[facility] LABORATORYCLIA [id number] [address] [facility] NURSING PROGon 06-19-2021 NURSING PROG Normal [facility] Phosphate SerPl-mCncon 06-19 Phosphate [Mass/Vol] 2.6 mg/dL Low 2.7-4.8 [facility] Comment on above: Order Comment: Speci men Type: BLOOD SPECIMENOrdering Facility: [facility] Address: [address] [place] [address] Performed By: #### 1 9123-9, 2777-1 ####[facility] LABORATORYCLIA [id number] [address] aPTT PPPon 06-19-2021 aPTT Coag (PPP) [Time] 61.9 s High 23.0-32.4 [facility] Comment on above: Order Comment: Speci men Type: BLOOD SPECIMENOrdering Facility: [facility] Address: [address] [place] [address] Performed By: #### 1 4979-9 ####[facility] LABORATORYCLIA [id number] [address] [place] aPTT Coag (PPP) [Time] 68.6 s High 23.0-32.4 [facility] Comment on above: Order Comment: Speci men Type: BLOOD SPECIMENOrdering Facility: [facility] Address: [address] [place] [address] Performed By: #### 1 4979-9 ####[facility] LABORATORYCLIA [id number] [address] [place] aPTT Coag (PPP) [Time] 83.2 s High 23.0-32.4 [facility] Comment on above: Order Comment: Speci men Type: BLOOD SPECIMENOrdering Facility: [facility] Address: [address] [place] [address] Performed By: #### 1 4979-9 ####[facility] LABORATORYCLIA [id number] [place] [address] [place] Basic metabolic 2000 panelon 06-18-2021 Anion gap [Moles/Vol] 7 mmol/L Low 9-18 [facility] Comment on above: Order Comment: Speci men Type: BLOOD SPECIMENOrdering Facility: [facility] Address: [address] [place] [address] Performed By: #### 2 4321-2, , 2776-05 ####[facility] LABORATORYCLIA [id number] [place] [address] [place] Calcium [Mass/Vol] 8.2 mg/dL Low 8.5-10.2 [facility] Comment on above: Order Comment: Speci men Type: BLOOD SPECIMENOrdering Facility: [facility] Address: [address] [place] [address] Performed By: #### 2 4321-2, , 2776-05 ####[facility] LABORATORYCLIA [id number] [place] [address] [place] Chloride [Moles/Vol] 115 mmol/L High 97-105 [facility] Comment on above: Order Comment: Speci men Type: BLOOD SPECIMENOrdering Facility: [facility] Address: [address] [place] [address] Performed By: #### 2 4321-2, , 2776-05 ####[facility] LABORATORYCLIA [id number] [place] [address] [place] CO2 [Moles/Vol] 23 mmol/L Normal 22-30 [facility] Comment on above: Order Comment: Speci men Type: BLOOD SPECIMENOrdering Facility: [facility] Address: [address] [place] [address] Performed By: #### 2 4321-2, 54211-42776-05 ####[facility] LABORATORYCLIA [id number] [place] [address] [place] Creatinine [Mass/Vol] 0.70 mg/dL Low 0.73-1.22 [facility] Comment on above: Order Comment: Shira feldman Type: BLOOD SPECIMENOrdering Facility: [facility] Address: [address] [place] [address] Performed By: #### 2 4321-2, , 2776-05 ####[facility] LABORATORYCLIA [id number] [place] [address] [place] GFR/1.73 sq M.predicted MDRD (S/P/Bld) [Vol rate/Area] mL/min/{1.73_m2} Normal [facility] Comment on above: Order Comment: [facility] Type: BLOOD SPECIMENOrdering Facility: [facility] Address: [address] [place] [address] Result Comment: >60e GFR (Estimated GFR) Units [...] Performed By: #### 2 4321-2, , 2776-05 ####[facility] LABORATORYCLIA [id number] [place] [address] [place] Glucose [Mass/Vol] 105 mg/dL High 74-99 [facility] Comment on above: Order Comment: Johncara feldman Type: BLOOD SPECIMENOrdering Facility: [facility] Address: [address] [address] Result Comment: The [place] [employer] (ADA) provides guidance for cutoff [...] Standards of Medical Care in Diabetes 2016, [place] [employer]. Diabetes Care. 2016.39(Suppl 1). Performed By: #### 2 4321-2, , 2776-05 ####[facility] LABORATORYCLIA [id number] [place] [address] [place] Potassium [Moles/Vol] 4.1 mmol/L Normal 3.7-5.1 [facility] Comment on above: Order Comment: Shira feldman Type: BLOOD SPECIMENOrdering Facility: [facility] Address: [address] [place] [address] Performed By: #### 2 4320-2, , 2776-05 ####[facility] SERVICESCLIA [id number] [place] [address] [place] Sodium [Moles/Vol] 145 mmol/L High 136-144 [facility] Comment on above: Order Comment: Shira feldman Type: BLOOD SPECIMENOrdering Facility: [facility] Address: [address] [place] [address] Performed By: #### 2 1-2, , 2776-05 ####[facility] LABORATORYCLIA [id number] [place] [address] [place] Urea nitrogen [Mass/Vol] 27 mg/dL High 9-24 [facility] Comment on above: Order Comment: Shira feldman Type: BLOOD SPECIMENOrdering Facility: [facility] Address: [address] [address] Performed By: #### 2 4321-2, , 2776-05 ####[facility] LABORATORYCLIA [id number] [address] CALCIUM IONIZED Bon 06-18-19 Calcium.ionized (BldV) [Mass/Vol] 1.22 mmol/L Normal 1.08-1.30 [facility] Comment on above: Order Comment: Speci men Type: BLOOD SPECIMENOrdering Facility: [facility] Address: [address] [place] [address] Performed By: #### I [place] ####[facility] LABORATORYCLIA [id number] [address] Calcium.ionized adjusted to pH 7.4 (Bld) [Moles/Vol] 1.23 mmol/L Normal 1.08-1.30 [facility] Comment on above: Order Comment: Speci men Type: BLOOD SPECIMENOrdering Facility: [facility] Address: [address] [place] [address] Performed By: #### I [place] ####[facility] LABORATORYCLIA [id number] [address] CBC panel Auto (Bld)on 06-18 Erythrocyte distribution width (RBC) [Ratio] 15.8 % High 11.5-15.0 [facility] Comment on above: Order Comment: Speci men Type: BLOOD SPECIMENOrdering Facility: [facility] Address: [address] [place] [address] Performed By: #### 5 8410-2 ####[facility] LABORATORYCLIA [id number] [address] Hematocrit (Bld) [Volume fraction] 29.5 % Low 39.0-51.0 [facility] Comment on above: Order Comment: Speci men Type: BLOOD SPECIMENOrdering Facility: [facility] Address: [address] [place] [address] Performed By: #### 5 8410-2 ####[facility] LABORATORYCLIA [id number] [address] Hemoglobin (Bld) [Mass/Vol] 8.8 g/dL Low 13.0-17.0 [facility] Comment on above: Order Comment: Speci men Type: BLOOD SPECIMENOrdering Facility: [facility] Address: [address] [place] [address] Performed By: #### 5 8410-2 ####[facility] LABORATORYCLIA [id number] [address] MCH (RBC) [Entitic mass] 27.4 pg Normal 26.0-34.0 [facility] Comment on above: Order Comment: Speci men Type: BLOOD SPECIMENOrdering Facility: [facility] Address: [address] [place] [address] Performed By: #### 5 8410-2 ####[facility] LABORATORYCLIA [id number] [address] MCHC (RBC) [Mass/Vol] 29.8 g/dL Low 30.5-36.0 [facility] Comment on above: Order Comment: Speci men Type: BLOOD SPECIMENOrdering Facility: [facility] Address: [address] [place] [address] Performed By: #### 5 8410-2 ####[facility] LABORATORYCLIA [id number] [address] MCV (RBC) [Entitic vol] 91.9 fL Normal 80.0-100.0 [facility] Comment on above: Order Comment: Speci men Type: BLOOD SPECIMENOrdering Facility: [facility] Address: [address] [place] [address] Performed By: #### 5 8410-2 ####[facility] LABORATORYCLIA [id number] [address] Nucleated RBC (Bld) [#/Vol] 10*3/uL Normal <0.01 [facility] Comment on above: Order Comment: Speci men Type: BLOOD SPECIMENOrdering Facility: [facility] Address: [address] [place] [address] Performed By: #### 5 8410-2 ####[facility] LABORATORYCLIA [id number] [address] [place] Platelet mean volume (Bld) [Entitic vol] 11.9 fL Normal 9.0-12.7 [facility] Comment on above: Order Comment: Speci men Type: BLOOD SPECIMENOrdering Facility: [facility] Address: [address] [place] [address] Performed By: #### 5 8410-2 ####[facility] LABORATORYCLIA [id number] [address] [place] Platelets (Bld) [#/Vol] 291 10*3/uL Normal 150-400 [facility] Comment on above: Order Comment: Speci men Type: BLOOD SPECIMENOrdering Facility: [facility] Address: [address] [place] [address] Performed By: #### 5 8410-2 ####[facility] LABORATORYCLIA [id number] [address] [place] RBC (Bld) [#/Vol] 3.21 10*6/uL Low 4.20-6.00 [facility] Comment on above: Order Comment: Speci men Type: BLOOD SPECIMENOrdering Facility: [facility] Address: [address] [place] [address] Performed By: #### 5 8410-2 ####[facility] LABORATORYCLIA [id number] [address] [place] WBC (Bld) [#/Vol] 10.19 10*3/uL Normal 3.70-11.00 [facility] Comment on above: Order Comment: Speci men Type: BLOOD SPECIMENOrdering Facility: [facility] Address: [address] [place] [address] Performed By: #### 5 8410-2 ####[facility] LABORATORYCLIA [id number] [address] [place] FERRITIN BLDon 06-18-2021 Ferritin [Mass/Vol] 600.9 ng/mL High 30.3-565.7 [facility] Comment on above: Order Comment: Speci men Type: BLOOD SPECIMENOrdering Facility: [facility] Address: [address] [place] [address] Performed By: #### S ERFOL, IRON, FERR ####[facility] LABORATORYCLIA [id number] [address] [place] FOLATE SERUMon 06-18-2021 Folate [Mass/Vol] 14.3 ng/mL Normal >4.7 [facility] Comment on above: Order Comment: Speci men Type: BLOOD SPECIMENOrdering Facility: [facility] Address: [address] [place] [address] Performed By: #### S ERFOL, IRON, FERR ####[facility] LABORATORYCLIA [id number] [address] Gas and Carbon monoxide pane l (BldV)on 06-18-2021 Base excess Calc (BldV) [Moles/Vol] 0.5 mmol/L Normal 0-2 [facility] Comment on above: Order Comment: Speci men Type: VENOUS BLOOD SPECIMENOrdering Facility: [facility] Address: [address] [place] [address] Performed By: #### 2 4344-4 ####[facility] LABORATORYCLIA [id number] [address] [facility] Body temperature 97.34 [degF] Normal [facility] Comment on above: Order Comment: Speci men Type: VENOUS BLOOD SPECIMENOrdering Facility: [facility] Address: [address] [place] [address] Performed By: #### 2 4344-4 ####[facility] LABORATORYCLIA [id number] [address] [facility] CALCIUM IONIZED, PH CORRECTED 1.26 mmol/L Normal 1.08-1.30 [facility] Comment on above: Order Comment: Speci men Type: VENOUS BLOOD SPECIMENOrdering Facility: [facility] Address: [address] [place] [address] Performed By: #### 2 4344-4 ####[facility] LABORATORYCLIA [id number] [address] Calcium.ionized (BldV) [Mass/Vol] 1.25 mmol/L Normal 1.08-1.30 [facility] Comment on above: Order Comment: Speci men Type: VENOUS BLOOD SPECIMENOrdering Facility: [facility] Address: [address] [place] [address] Performed By: #### 2 4344-4 ####[facility] LABORATORYCLIA [id number] [address] [place] Carboxyhemoglobin (BldV) [Mass fraction] 1.5 % Normal 0.0-2.0 [facility] Comment on above: Order Comment: Speci men Type: VENOUS BLOOD SPECIMENOrdering Facility: [facility] Address: [address] [place] [address] Result Comment: Carb oxyhemoglobin Reference Range for Smokers: 2.0-8.0% Performed By: #### 2 4344-4 ####[facility] LABORATORYCLIA [id number] [address] [place] CO2 (BldV) [Partial pressure] 38 mm[Hg] Low 42-55 [facility] Comment on above: Order Comment: Speci men Type: VENOUS BLOOD SPECIMENOrdering Facility: [facility] Address: [address] [place] [address] Performed By: #### 2 4344-4 ####[facility] LABORATORYCLIA [id number] [address] [place] CO2 [Moles/Vol] 22.9 mmol/L Low 25-29 [facility] Comment on above: Order Comment: Speci men Type: VENOUS BLOOD SPECIMENOrdering Facility: [facility] Address: [address] [place] [address] Performed By: #### 2 4344-4 ####[facility] LABORATORYCLIA [id number] [place] [address] [place] CO2 adjusted to patient's actual temperature (BldV) [Partial pressure] 37 mmHg Low 42-55 [facility] Comment on above: Order Comment: Speci men Type: VENOUS BLOOD SPECIMENOrdering Facility: [facility] Address: [address] [place] [address] Performed By: #### 2 4344-4 ####[facility] LABORATORYCLIA [id number] [place] [address] [place] Glucose [Mass/Vol] 103 mg/dL Normal 60-105 [facility] Comment on above: Order Comment: Speci men Type: VENOUS BLOOD SPECIMENOrdering Facility: [facility] Address: [address] [place] [address] Performed By: #### 2 4344-4 ####[facility] LABORATORYCLIA [id number] [address] [place] HCO3 (Bld) [Moles/Vol] 24.4 mmol/L Normal 24-28 [facility] Comment on above: Order Comment: Speci men Type: VENOUS BLOOD SPECIMENOrdering Facility: [facility] Address: [address] [place] [address] Performed By: #### 2 4344-4 ####[facility] LABORATORYCLIA [id number] [address] [place] Hematocrit (Bld) [Volume fraction] 28.7 % Low 39.0-51.0 [facility] Comment on above: Order Comment: Speci men Type: VENOUS BLOOD SPECIMENOrdering Facility: [facility] Address: [address] [address] Performed By: #### 2 4344-4 ####[facility] LABORATORYCLIA [id number] [place] [address] [place] Hemoglobin (Bld) [Mass/Vol] 9.3 g/dL Low 13.0-17.0 [facility] Comment on above: Order Comment: Speci men Type: VENOUS BLOOD SPECIMENOrdering Facility: [facility] Address: [address] [place] [address] Performed By: #### 2 4344-4 ####[facility] LABORATORYCLIA [id number] [address] Methemoglobin (Bld) [Mass fraction] % Normal 0.0-1.5 [facility] Comment on above: Order Comment: Speci men Type: VENOUS BLOOD SPECIMENOrdering Facility: [facility] Address: [address] [place] [address] Performed By: #### 2 4344-4 ####[facility] LABORATORYCLIA [id number] [address] O2 THERAPY Ventilator Normal [facility] Comment on above: Order Comment: Speci men Type: VENOUS BLOOD SPECIMENOrdering Facility: [facility] Address: [address] [place] [address] Performed By: #### 2 4344-4 ####[facility] LABORATORYCLIA [id number] [address] Oxygen (BldV) [Partial pressure] 37 mm[Hg] Normal 35-45 [facility] Comment on above: Order Comment: Speci men Type: VENOUS BLOOD SPECIMENOrdering Facility: [facility] Address: [address] [place] [address] Performed By: #### 2 4344-4 ####[facility] LABORATORYCLIA [id number] [address] Oxygen adjusted to patient's actual temperature (BldV) [Partial pressure] 35.1 mmHg Normal 35-45 [facility] Comment on above: Order Comment: Speci men Type: VENOUS BLOOD SPECIMENOrdering Facility: [facility] Address: [address] [place] [address] Performed By: #### 2 4344-4 ####[facility] LABORATORYCLIA [id number] [address] Oxygen saturation in Blood 67.1 % Normal 60-85 [facility] Comment on above: Order Comment: Speci men Type: VENOUS BLOOD SPECIMENOrdering Facility: [facility] Address: [address] [address] Performed By: #### 2 4344-4 ####[facility] LABORATORYCLIA [id number] [address] Oxyhemoglobin (BldV) [Mass fraction] 66 % Normal 60-85 [facility] Comment on above: Order Comment: Speci men Type: VENOUS BLOOD SPECIMENOrdering Facility: [facility] Address: [address] [place] [address] Performed By: #### 2 4344-4 ####[facility] LABORATORYCLIA [id number] [address] [place] pH (BldV) 7.42 [pH] Normal 7.32-7.42 [facility] Comment on above: Order Comment: Speci men Type: VENOUS BLOOD SPECIMENOrdering Facility: [facility] Address: [address] [place] [address] Performed By: #### 2 4344-4 ####[facility] LABORATORYCLIA [id number] [address] pH adjusted to patient's actual temperature (BldV) 7.43 High 7.32-7.42 [facility] Comment on above: Order Comment: Speci men Type: VENOUS BLOOD SPECIMENOrdering Facility: [facility] Address: [address] [place] [address] Performed By: #### 2 4344-4 ####[facility] LABORATORYCLIA [id number] [address] [place] Potassium [Moles/Vol] 4.0 mmol/L Normal 3.5-5.0 [facility] Comment on above: Order Comment: Speci men Type: VENOUS BLOOD SPECIMENOrdering Facility: [facility] Address: [address] [place] [address] Performed By: #### 2 4344-4 ####[facility] LABORATORYCLIA [id number] [address] [place] Sodium [Moles/Vol] 146 mmol/L High 136-144 [facility] Comment on above: Order Comment: Speci men Type: VENOUS BLOOD SPECIMENOrdering Facility: [facility] Address: [address] [place] [address] Performed By: #### 2 4344-4 ####[facility] LABORATORYCLIA [id number] [address] [place] HEMOGLOBIN (HGB)on 2 Hemoglobin (Bld) [Mass/Vol] 9.2 g/dL Low 13.0-17.0 [facility] Comment on above: Order Comment: Speci men Type: BLOOD SPECIMENOrdering Facility: [facility] Address: [address] [place] [address] Performed By: #### H GB ####[facility] LABORATORYCLIA [id number] [address] [place] IRON + TIBCon 06-18-2021 Iron [Mass/Vol] 27 ug/dL Low 41-186 [facility] Comment on above: Order Comment: Speci men Type: BLOOD SPECIMENOrdering Facility: [facility] Address: [address] [place] [address] Performed By: #### S ERFOL, IRON, FERR ####[facility] LABORATORYCLIA [id number] [address] [place] Iron binding capacity [Mass/Vol] 141 ug/dL Low 232-386 [facility] Comment on above: Order Comment: Speci men Type: BLOOD SPECIMENOrdering Facility: [facility] Address: [address] [place] [address] Performed By: #### S ERFOL, IRON, FERR ####[facility] LABORATORYCLIA [id number] [address] [place] Iron saturation [Mass fraction] 19 % Normal 15-57 [facility] Comment on above: Order Comment: Speci men Type: BLOOD SPECIMENOrdering Facility: [facility] Address: [address] [place] [address] Performed By: #### S ERFOL, IRON, FERR ####[facility] LABORATORYCLIA [id number] [address] Magnesium SerPl-mCncon 06-18 Magnesium [Mass/Vol] 2.5 mg/dL High 1.7-2.3 [facility] Comment on above: Order Comment: Speci men Type: BLOOD SPECIMENOrdering Facility: [facility] Address: [address] [place] [address] Performed By: #### 2 4321-2, 64791-7, 2777-1 ####[facility] LABORATORYCLIA [id number] [address] NURSING PROGon 06-18-2021 NURSING PROG Normal [facility] Phosphate SerPl-ncon 06-18 Phosphate [Mass/Vol] 3.0 mg/dL Normal 2.7-4.8 [facility] Comment on above: Order Comment: Speci men Type: BLOOD SPECIMENOrdering Facility: [facility] Address: [address] [place] [address] Performed By: #### 2 4321-2, , 2777- ####[facility] LABORATORYCLIA [id number] [address] THERAPY NTon 06-18-2021 THERAPY NT Normal [facility] aPTT PPPon 06-18-2021 aPTT Coag (PPP) [Time] 43.0 s High 23.0-32.4 [facility] Comment on above: Order Comment: Speci men Type: BLOOD SPECIMENOrdering Facility: [facility] Address: [address] [place] [address] Performed By: #### 1 4979-9 ####[facility] LABORATORYCLIA [id number] [address] aPTT Coag (PPP) [Time] 60.6 s High 23.0-32.4 [facility] Comment on above: Order Comment: Speci men Type: BLOOD SPECIMENOrdering Facility: [facility] Address: [address] [place] [address] Performed By: #### 1 4979-9 ####[facility] LABORATORYCLIA [id number] [place] [address] [place] aPTT Coag (PPP) [Time] 46.4 s High 23.0-32.4 [facility] Comment on above: Order Comment: Speci men Type: BLOOD SPECIMENOrdering Facility: [facility] Address: [address] [place] [address] Performed By: #### 1 4979-9 ####[facility] LABORATORYCLIA [id number] [address] [place] Basic metabolic 2000 panelon 06-17-2021 Anion gap [Moles/Vol] 7 mmol/L Low 9-18 [facility] Comment on above: Order Comment: Speci men Type: BLOOD SPECIMENOrdering Facility: [facility] Address: [address] [place] [address] Performed By: #### 2 951-2, 83719-3, 2776-1, 24698-2 ####[facility] LABORATORYCLIA [id number] [place] [address] [place] Calcium [Mass/Vol] 8.1 mg/dL Low 8.5-10.2 [facility] Comment on above: Order Comment: Speci men Type: BLOOD SPECIMENOrdering Facility: [facility] Address: [address] [place] [address] Performed By: #### 2 951-2, , 2776-1, 94358-9 ####[facility] LABORATORYCLIA [id number] [place] [address] [place] Chloride [Moles/Vol] 113 mmol/L High 97-105 [facility] Comment on above: Order Comment: Speci men Type: BLOOD SPECIMENOrdering Facility: [facility] Address: [address] [place] [address] Performed By: #### 2 951-2, , 2776-05, ####[facility] LABORATORYCLIA [id number] [place] [address] [place] CO2 [Moles/Vol] 25 mmol/L Normal 22-30 [facility] Comment on above: Order Comment: Speccara feldman Type: BLOOD SPECIMENOrdering Facility: [facility] Address: [address] [place] [address] Performed By: #### 2 951-2, , 2776-05, ####[facility] LABORATORYCLIA [id number] [place] [address] [place] Creatinine [Mass/Vol] 0.70 mg/dL Low 0.73-1.22 [facility] Comment on above: Order Comment: Speccara feldman Type: BLOOD SPECIMENOrdering Facility: [facility] Address: [address] [place] [address] Performed By: #### 2 951-2, , 2776-05, ####[facility] LABORATORYCLIA [id number] [place] [address] [place] GFR/1.73 sq M.predicted MDRD (S/P/Bld) [Vol rate/Area] mL/min/{1.73_m2} Normal [facility] Comment on above: Order Comment: Shira feldman Type: BLOOD SPECIMENOrdering Facility: [facility] Address: [address] [place] [address] Result Comment: >60e GFR (Estimated GFR) Units [...] GFR. Performed By: #### 2 951-2, , 2776-1, 36960-1 ####[facility] LABORATORYCLIA [id number] [place] [address] [place] Glucose [Mass/Vol] 122 mg/dL High 74-99 [facility] Comment on above: Order Comment: Johni francia Type: BLOOD SPECIMENOrdering Facility: [facility] Address: [address] [place] [address] Result Comment: The [place] Diabetes [employer] (ADA) provides guidance for cutoff [...] Standards of Medical Care in Diabetes 2016, [place] [employer]. Diabetes Care. 2016.39(Suppl 1). Performed By: #### 2 951-2, 30464-3, 2776-1, 57502-8 ####[facility] LABORATORYCLIA [id number] [place] [address] [place] Potassium [Moles/Vol] 3.5 mmol/L Low 3.7-5.1 [facility] Comment on above: Order Comment: Johni francia Type: BLOOD SPECIMENOrdering Facility: [facility] Address: [address] [address] Performed By: #### 2 951-2, 16481-1, 2776-1, 76616-2 ####[facility] LABORATORYCLIA [id number] [place] [address] [place] Urea nitrogen [Mass/Vol] 27 mg/dL High 9-24 [facility] Comment on above: Order Comment: Speci francia Type: BLOOD SPECIMENOrdering Facility: [facility] Address: [address] [address] Performed By: #### 2 951-2, 86488-0, 2777-1, 36984-6 ####[facility] LABORATORYCLIA [id number] [address] [facility] CASE MANAGEMon 06-17-2021 CASE MANAGEM Normal [facility] CBC panel Auto (Bld)on 06-17 Erythrocyte distribution width (RBC) [Ratio] 15.9 % High 11.5-15.0 [facility] Comment on above: Order Comment: Speci men Type: BLOOD SPECIMENOrdering Facility: [facility] Address: [address] [place] [address] Performed By: #### 5 8410-2 ####[facility] LABORATORYCLIA [id number] [address] Hematocrit (Bld) [Volume fraction] 28.9 % Low 39.0-51.0 [facility] Comment on above: Order Comment: Speci men Type: BLOOD SPECIMENOrdering Facility: [facility] Address: [address] [place] [address] Performed By: #### 5 8410-2 ####[facility] LABORATORYCLIA [id number] [address] Hemoglobin (Bld) [Mass/Vol] 8.8 g/dL Low 13.0-17.0 [facility] Comment on above: Order Comment: Speci men Type: BLOOD SPECIMENOrdering Facility: [facility] Address: [address] [place] [address] Performed By: #### 5 8410-2 ####[facility] LABORATORYCLIA [id number] [address] STATES [facility] MCH (RBC) [Entitic mass] 28.4 pg Normal 26.0-34.0 [facility] Comment on above: Order Comment: Speci men Type: BLOOD SPECIMENOrdering Facility: [facility] Address: [address] [place] [address] Performed By: #### 5 8410-2 ####[facility] LABORATORYCLIA [id number] [address] STATES [facility] MCHC (RBC) [Mass/Vol] 30.4 g/dL Low 30.5-36.0 [facility] Comment on above: Order Comment: Speci men Type: BLOOD SPECIMENOrdering Facility: [facility] Address: [address] [place] [address] Performed By: #### 5 8410-2 ####[facility] LABORATORYCLIA [id number] [address] [place] MCV (RBC) [Entitic vol] 93.2 fL Normal 80.0-100.0 [facility] Comment on above: Order Comment: Speci men Type: BLOOD SPECIMENOrdering Facility: [facility] Address: [address] [place] [address] Performed By: #### 5 8410-2 ####[facility] LABORATORYCLIA [id number] [address] STATES [facility] Nucleated RBC (Bld) [#/Vol] 10*3/uL Normal <0.01 [facility] Comment on above: Order Comment: Speci men Type: BLOOD SPECIMENOrdering Facility: [facility] Address: [address] [place] [address] Performed By: #### 5 8410-2 ####[facility] LABORATORYCLIA [id number] [address] [place] Platelet mean volume (Bld) [Entitic vol] 11.9 fL Normal 9.0-12.7 [facility] Comment on above: Order Comment: Speci men Type: BLOOD SPECIMENOrdering Facility: [facility] Address: [address] [place] [address] Performed By: #### 5 8410-2 ####[facility] LABORATORYCLIA [id number] [address] [place] Platelets (Bld) [#/Vol] 257 10*3/uL Normal 150-400 [facility] Comment on above: Order Comment: Speci men Type: BLOOD SPECIMENOrdering Facility: [facility] Address: [address] [place] [address] Performed By: #### 5 8410-2 ####[facility] LABORATORYCLIA [id number] [address] [facility] RBC (Bld) [#/Vol] 3.10 10*6/uL Low 4.20-6.00 [facility] Comment on above: Order Comment: Speci men Type: BLOOD SPECIMENOrdering Facility: [facility] Address: [address] [place] [address] Performed By: #### 5 8410-2 ####[facility] LABORATORYCLIA [id number] [address] [place] [facility] WBC (Bld) [#/Vol] 10.54 10*3/uL Normal 3.70-11.00 [facility] Comment on above: Order Comment: Speci men Type: BLOOD SPECIMENOrdering Facility: [facility] Address: [address] [place] [address] Performed By: #### 5 8410-2 ####[facility] LABORATORYCLIA [id number] [address] HEMOGLOBIN (HGB)on Hemoglobin (Bld) [Mass/Vol] 8.8 g/dL Low 13.0-17.0 [facility] Comment on above: Order Comment: Speci men Type: BLOOD SPECIMENOrdering Facility: [facility] Address: [address] [place] [address] Performed By: #### H GB ####[facility] LABORATORYCLIA [id number] [address] Magnesium SerPl-mCncon 06-17 Magnesium [Mass/Vol] 2.5 mg/dL High 1.7-2.3 [facility] Comment on above: Order Comment: Speci men Type: BLOOD SPECIMENOrdering Facility: [facility] Address: [address] [place] [address] Performed By: #### 2 951-2, , 2776-05, 22149-2 ####[facility] LABORATORYCLIA [id number] [place] [address] [place] NURSING PROGon 06-17-2021 NURSING PROG Normal [facility] NURSING PROG Normal [facility] NURSING PROG Normal [facility] Phosphate SerPl-mCncon 06-17 Phosphate [Mass/Vol] 1.9 mg/dL Low 2.7-4.8 [facility] Comment on above: Order Comment: Speci men Type: BLOOD SPECIMENOrdering Facility: [facility] Address: [address] [place] [address] Performed By: #### 2 951-2, , 2776-05, 91731-0 ####[facility] LABORATORYCLIA [id number] [address] [place] [facility] Sodium SerPl-sCncon 06-17-19 22 Sodium [Moles/Vol] 144 mmol/L Normal 136-144 [facility] Comment on above: Order Comment: Speci men Type: BLOOD SPECIMENOrdering Facility: [facility] Address: [address] [place] [address] Performed By: #### 2 951-2 ####[facility] LABORATORYCLIA [id number] [address] [place] Sodium [Moles/Vol] 145 mmol/L High 136-144 [facility] Comment on above: Order Comment: Speci men Type: BLOOD SPECIMENOrdering Facility: [facility] Address: [address] [place] [address] Performed By: #### 2 951-2, , 2776-05, 86676-7 ####[facility] LABORATORYCLIA [id number] [address] [place] aPTT PPPon 06-17-2021 aPTT Coag (PPP) [Time] 55.8 s High 23.0-32.4 [facility] Comment on above: Order Comment: Speci men Type: BLOOD SPECIMENOrdering Facility: [facility] Address: [address] [place] [address] Performed By: #### 1 4979-9 ####[facility] LABORATORYCLIA [id number] [address] ARTERIAL BLOOD GASESon 06-16 Base excess Calc (Bld) [Moles/Vol] 3 mmol/L High 0-2 [facility] Comment on above: Order Comment: Speci men Type: ARTERIAL BLOOD SPECIMENOrdering Facility: [facility] Address: [address] [place] [address] Performed By: #### A LLBG ####[facility] LABORATORYCLIA [id number] [address] Body temperature 99.14 [degF] Normal [facility] Comment on above: Order Comment: Speci men Type: ARTERIAL BLOOD SPECIMENOrdering Facility: [facility] Address: [address] [place] [address] Performed By: #### A LLBG ####[facility] LABORATORYCLIA [id number] [address] STATES [facility] CALCIUM IONIZED, PH CORRECTED 1.21 mmol/L Normal 1.08-1.30 [facility] Comment on above: Order Comment: Speci men Type: ARTERIAL BLOOD SPECIMENOrdering Facility: [facility] Address: [address] [place] [address] Performed By: #### A LLBG ####[facility] LABORATORYCLIA [id number] [address] [place] Calcium.ionized (BldV) [Mass/Vol] 1.17 mmol/L Normal 1.08-1.30 [facility] Comment on above: Order Comment: Speci men Type: ARTERIAL BLOOD SPECIMENOrdering Facility: [facility] Address: [address] [place] [address] Performed By: #### A LLBG ####[facility] LABORATORYCLIA [id number] [address] [place] Carboxyhemoglobin (BldA) [Mass fraction] 1.4 % Normal 0.0-2.0 [facility] Comment on above: Order Comment: Speci men Type: ARTERIAL BLOOD SPECIMENOrdering Facility: [facility] Address: [address] [place] [address] Result Comment: Carb oxyhemoglobin Reference Range for Smokers: 2.0-8.0% Performed By: #### A LLBG ####[facility]ORATORYCLIA [id number] [address] [place] CO2 (Bld) [Partial pressure] 38 mm Hg Normal 36-46 [facility] Comment on above: Order Comment: Speci men Type: ARTERIAL BLOOD SPECIMENOrdering Facility: [facility] Address: [address] [place] [address] Performed By: #### A LLBG ####[facility]ORATORYCLIA [id number] [address] [place] CO2 [Moles/Vol] 24.5 mmol/L Normal 22-28 [facility] Comment on above: Order Comment: Speci men Type: ARTERIAL BLOOD SPECIMENOrdering Facility: [facility] Address: [address] [place] [address] Performed By: #### A LLBG ####[facility]ORATORYCLIA [id number] [address] [place] CO2 adjusted to patient's actual temperature (Bld) [Partial pressure] 38 mmHg Normal 36-46 [facility] Comment on above: Order Comment: Speci men Type: ARTERIAL BLOOD SPECIMENOrdering Facility: [facility] Address: [address] [place] [address] Performed By: #### A LLBG ####[facility]ORATORYCLIA [id number] [address] [place] Glucose [Mass/Vol] 147 mg/dL High 60-105 [facility] Comment on above: Order Comment: Speci men Type: ARTERIAL BLOOD SPECIMENOrdering Facility: [facility] Address: [address] [place] [address] Performed By: #### A LLBG ####[facility] LABORATORYCLIA [id number] [address] [place] HCO3 (Bld) [Moles/Vol] 27 mmol/L High 22-26 [facility] Comment on above: Order Comment: Speci men Type: ARTERIAL BLOOD SPECIMENOrdering Facility: [facility] Address: [address] [place] [address] Performed By: #### A LLBG ####[facility] LABORATORYCLIA [id number] [address] [place] Hematocrit (Bld) [Volume fraction] 31.8 % Low 39.0-51.0 [facility] Comment on above: Order Comment: Speci men Type: ARTERIAL BLOOD SPECIMENOrdering Facility: [facility] Address: [address] [place] [address] Performed By: #### A LLBG ####[facility] LABORATORYCLIA [id number] [address] [facility] Hemoglobin (Bld) [Mass/Vol] 10.3 g/dL Low 13.0-17.0 [facility] Comment on above: Order Comment: Speci men Type: ARTERIAL BLOOD SPECIMENOrdering Facility: [facility] Address: [address] [place] [address] Performed By: #### A LLBG ####[facility] LABORATORYCLIA [id number] [address] [place] Methemoglobin (Bld) [Mass fraction] 1.0 % Normal 0.0-1.5 [facility] Comment on above: Order Comment: Speci men Type: ARTERIAL BLOOD SPECIMENOrdering Facility: [facility] Address: [address] [place] [address] Performed By: #### A LLBG ####[facility] LABORATORYCLIA [id number] [address] [place] O2 THERAPY Ventilator Normal [facility] Comment on above: Order Comment: Speci men Type: ARTERIAL BLOOD SPECIMENOrdering Facility: [facility] Address: [address] [address] Performed By: #### A LLBG ####[facility]ORATORYCLIA [id number] [address] Oxygen (Bld) [Partial pressure] 78 mm Hg Low 85-95 [facility] Comment on above: Order Comment: Speci men Type: ARTERIAL BLOOD SPECIMENOrdering Facility: [facility] Address: [address] [place] [address] Performed By: #### A LLBG ####[facility] LABORATORYCLIA [id number] [address] Oxygen adjusted to patient's actual temperature (Bld) [Partial pressure] 79.7 mmHg Low 85-95 [facility] Comment on above: Order Comment: Speci men Type: ARTERIAL BLOOD SPECIMENOrdering Facility: [facility] Address: [address] [place] [address] Performed By: #### A LLBG ####[facility] LABORATORYCLIA [id number] [address] [place] OXYGEN SATURATION, ARTERIAL 96 % Normal 95-98 [facility] Comment on above: Order Comment: Speci men Type: ARTERIAL BLOOD SPECIMENOrdering Facility: [facility] Address: [address] [place] [address] Performed By: #### A LLBG ####[facility]ORATORYCLIA [id number] [address] [place] Oxyhemoglobin (BldA) [Mass fraction] 94 % Low 95-98 [facility] Comment on above: Order Comment: Speci men Type: ARTERIAL BLOOD SPECIMENOrdering Facility: [facility] Address: [address] [place] [address] Performed By: #### A LLBG ####[facility]ORATORYCLIA [id number] [address] [place] pH (Bld) 7.47 [pH] High 7.35-7.45 [facility] Comment on above: Order Comment: Speci men Type: ARTERIAL BLOOD SPECIMENOrdering Facility: [facility] Address: [address] [place] [address] Performed By: #### A LLBG ####[facility] LABORATORYCLIA [id number] [address] pH adjusted to patient's actual temperature (Bld) 7.46 High 7.35-7.45 [facility] Comment on above: Order Comment: Speci men Type: ARTERIAL BLOOD SPECIMENOrdering Facility: [facility] Address: [address] [place] [address] Performed By: #### A LLBG ####[facility] LABORATORYCLIA [id number] [address] Potassium [Moles/Vol] 3.7 mmol/L Normal 3.5-5.0 [facility] Comment on above: Order Comment: Speci men Type: ARTERIAL BLOOD SPECIMENOrdering Facility: [facility] Address: [address] [place] [address] Performed By: #### A LLBG ####[facility] LABORATORYCLIA [id number] [address] [place] [facility] Sodium [Moles/Vol] 155 mmol/L High 136-144 [facility] Comment on above: Order Comment: Speci men Type: ARTERIAL BLOOD SPECIMENOrdering Facility: [facility] Address: [address] [place] [address] Performed By: #### A LLBG ####[facility] LABORATORYCLIA [id number] [address] [place] Bacteria Spec Resp Culton Bacteria identified Respiratory culture Nom (Unsp spec) CULTURE, RESPIRATORY: Rare Normal respiratory chris present ORGANISM ID: 1 Few Yeast, not cryptococcus neoformans GRAM STAIN: No organisms seen Few Polymorphonuclear leukocytes Few Epithelial cells Abnormal [facility] Comment on above: Performed By: #### 3 2355-0 ####[facility] LABORATORYCLIA [id number] [address] [place] Basic metabolic 2000 panelon 06-16-2021 Anion gap [Moles/Vol] 9 mmol/L Normal 9-18 [facility] Comment on above: Order Comment: Speci men Type: BLOOD SPECIMENOrdering Facility: [facility] Address: [address] [place] [address] Performed By: #### 2 4321-2 ####[facility] LABORATORYCLIA [id number] [place] [address] [place] Calcium [Mass/Vol] 8.4 mg/dL Low 8.5-10.2 [facility] Comment on above: Order Comment: Speci men Type: BLOOD SPECIMENOrdering Facility: [facility] Address: [address] [place] [address] Performed By: #### 2 4321-2 ####[facility] LABORATORYCLIA [id number] [address] [place] Chloride [Moles/Vol] 120 mmol/L High 97-105 [facility] Comment on above: Order Comment: Speci men Type: BLOOD SPECIMENOrdering Facility: [facility] Address: [address] [place] [address] Performed By: #### 2 4321-2 ####[facility] LABORATORYCLIA [id number] [address] [place] CO2 [Moles/Vol] 27 mmol/L Normal 22-30 [facility] Comment on above: Order Comment: Speci men Type: BLOOD SPECIMENOrdering Facility: [facility] Address: [address] [place] [address] Performed By: #### 2 4321-2 ####[facility] LABORATORYCLIA [id number] [address] [place] Creatinine [Mass/Vol] 0.75 mg/dL Normal 0.73-1.22 [facility] Comment on above: Order Comment: Speci men Type: BLOOD SPECIMENOrdering Facility: [facility] Address: [address] [place] [address] Performed By: #### 2 4321-2 ####[facility] LABORATORYCLIA [id number] [place] [address] [place] GFR/1.73 sq M.predicted MDRD (S/P/Bld) [Vol rate/Area] mL/min/{1.73_m2} Normal [facility] Comment on above: Order Comment: Shira feldman Type: BLOOD SPECIMENOrdering Facility: [facility] Address: [address] [place] [phone] Result Comment: >60e GFR (Estimated GFR) Units [...] actual GFR. Performed By: #### 2 4321-2 ####[facility] LABORATORYCLIA [id number] [place] [address] [place] Glucose [Mass/Vol] 160 mg/dL High 74-99 [facility] Comment on above: Order Comment: Shira feldman Type: BLOOD SPECIMENOrdering Facility: [facility] Address: [address] [place] [phone] Result Comment: The [place] [employer] (ADA) provides guidance for cutoff [...] Standards of Medical Care in Diabetes 2016, [place] [employer]. Diabetes Care. 2016.39(Suppl 1). Performed By: #### 2 4321-2 ####[facility] LABORATORYCLIA [id number] [address] [facility] Potassium [Moles/Vol] 3.1 mmol/L Low 3.7-5.1 [facility] Comment on above: Order Comment: Speci men Type: BLOOD SPECIMENOrdering Facility: [facility] Address: [address] [place] [address] Performed By: #### 2 4321-2 ####[facility] LABORATORYCLIA [id number] [address] [place] Sodium [Moles/Vol] 156 mmol/L High 136-144 [facility] Comment on above: Order Comment: Speci men Type: BLOOD SPECIMENOrdering Facility: [facility] Address: [address] [place] [address] Performed By: #### 2 4321-2 ####[facility] LABORATORYCLIA [id number] [address] [place] [facility] Urea nitrogen [Mass/Vol] 33 mg/dL High 9-24 [facility] Comment on above: Order Comment: Speci men Type: BLOOD SPECIMENOrdering Facility: [facility] Address: [address] [place] [address] Performed By: #### 2 4321-2 ####[facility] LABORATORYCLIA [id number] [address] [facility] CASE MANAGEMon 06-16-2021 CASE MANAGEM Normal [facility] CBC panel Auto (Bld)on 06-16 Erythrocyte distribution width (RBC) [Ratio] 15.9 % High 11.5-15.0 [facility] Comment on above: Order Comment: Speci men Type: BLOOD SPECIMENOrdering Facility: [facility] Address: [address] [place] [address] Performed By: #### 5 8410-2 ####[facility] LABORATORYCLIA [id number] [address] Hematocrit (Bld) [Volume fraction] 34.6 % Low 39.0-51.0 [facility] Comment on above: Order Comment: Speci men Type: BLOOD SPECIMENOrdering Facility: [facility] Address: [address] [place] [address] Performed By: #### 5 8410-2 ####[facility] LABORATORYCLIA [id number] [address] [place] [facility] Hemoglobin (Bld) [Mass/Vol] 10.2 g/dL Low 13.0-17.0 [facility] Comment on above: Order Comment: Speci men Type: BLOOD SPECIMENOrdering Facility: [facility] Address: [address] [place] [address] Performed By: #### 5 8410-2 ####[facility] LABORATORYCLIA [id number] [address] [place] MCH (RBC) [Entitic mass] 28.5 pg Normal 26.0-34.0 [facility] Comment on above: Order Comment: Speci men Type: BLOOD SPECIMENOrdering Facility: [facility] Address: [address] [place] [address] Performed By: #### 5 8410-2 ####[facility] LABORATORYCLIA [id number] [address] [place] MCHC (RBC) [Mass/Vol] 29.5 g/dL Low 30.5-36.0 [facility] Comment on above: Order Comment: Speci men Type: BLOOD SPECIMENOrdering Facility: [facility] Address: [address] [place] [address] Performed By: #### 5 8410-2 ####[facility] LABORATORYCLIA [id number] [address] MCV (RBC) [Entitic vol] 96.6 fL Normal 80.0-100.0 [facility] Comment on above: Order Comment: Speci men Type: BLOOD SPECIMENOrdering Facility: [facility] Address: [address] [place] [address] Performed By: #### 5 8410-2 ####[facility] LABORATORYCLIA [id number] [address] [place] Nucleated RBC (Bld) [#/Vol] 10*3/uL Normal <0.01 [facility] Comment on above: Order Comment: Speci men Type: BLOOD SPECIMENOrdering Facility: [facility] Address: [address] [place] [address] Performed By: #### 5 8410-2 ####[facility] LABORATORYCLIA [id number] [address] [place] Platelet mean volume (Bld) [Entitic vol] 11.9 fL Normal 9.0-12.7 [facility] Comment on above: Order Comment: Speci men Type: BLOOD SPECIMENOrdering Facility: [facility] Address: [address] [place] [address] Performed By: #### 5 8410-2 ####[facility] LABORATORYCLIA [id number] [address] [place] Platelets (Bld) [#/Vol] 269 10*3/uL Normal 150-400 [facility] Comment on above: Order Comment: Speci men Type: BLOOD SPECIMENOrdering Facility: [facility] Address: [address] [place] [address] Performed By: #### 5 8410-2 ####[facility] LABORATORYCLIA [id number] [address] [place] RBC (Bld) [#/Vol] 3.58 10*6/uL Low 4.20-6.00 [facility] Comment on above: Order Comment: Speci men Type: BLOOD SPECIMENOrdering Facility: [facility] Address: [address] [place] [address] Performed By: #### 5 8410-2 ####[facility] LABORATORYCLIA [id number] [address] [place] WBC (Bld) [#/Vol] 13.11 10*3/uL High 3.70-11.00 [facility] Comment on above: Order Comment: Speci men Type: BLOOD SPECIMENOrdering Facility: [facility] Address: [address] [place] [address] Performed By: #### 5 8410-2 ####[facility] LABORATORYCLIA [id number] [address] [place] CONSULTon 06-16-2021 CONSULT Normal [facility] CONSULT PROGon 06-16-2021 CONSULT PROG Normal [facility] CT BRAIN WO IVCONon 06-16-[address] BRAIN WO IVCON Normal [facility] HEMOGLOBIN (HGB)on 2 Hemoglobin (Bld) [Mass/Vol] 8.9 g/dL Low 13.0-17.0 [facility] Comment on above: Order Comment: Speci men Type: BLOOD SPECIMENOrdering Facility: [facility] Address: [address] [place] [address] Performed By: #### H GB ####[facility] LABORATORYCLIA [id number] [address] Hemoglobin (Bld) [Mass/Vol] 9.6 g/dL Low 13.0-17.0 [facility] Comment on above: Order Comment: Speci men Type: BLOOD SPECIMENOrdering Facility: [facility] Address: [address] [place] [address] Performed By: #### H GB ####[facility] LABORATORYCLIA [id number] [address] [place] Magnesium SerPl-mCncon 06-16 Magnesium [Mass/Vol] 2.7 mg/dL High 1.7-2.3 [facility] Comment on above: Order Comment: Speci men Type: BLOOD SPECIMENOrdering Facility: [facility] Address: [address] [place] [address] Performed By: #### 1 9123-9 ####[facility] LABORATORYCLIA [id number] [place] [address] [place] NURSING PROGon 06-16-2021 NURSING PROG Normal [facility] NUTRITIONon 06-16-2021 NUTRITION Normal [facility] Phosphate SerPl-mCncon 06-16 Phosphate [Mass/Vol] 1.4 mg/dL Low 2.7-4.8 [facility] Comment on above: Order Comment: Speci men Type: BLOOD SPECIMENOrdering Facility: [facility] Address: [address] [place] [address] Performed By: #### 2 777-1 ####[facility] LABORATORYCLIA [id number] [address] STAPH AUREUS PCRon S. aureus and MRSA panel MEGAN+probe (Nose) Normal Negative [facility] Comment on above: Order Comment: Speci men Type: SWAB OF INTERNAL NOSEOrdering Facility: [facility] Address: [address] [place] [address] Result Comment: Nega tive for Staphylococcus aureus by PCR.Negative for MRSA by PCR Performed By: #### S APCR ####[facility] LABORATORYCLIA [id number] [place] [address] [place] Sodium SerPl-sCncon 06-16-19 22 Sodium [Moles/Vol] 150 mmol/L High 136-144 [facility] Comment on above: Order Comment: Speci men Type: BLOOD SPECIMENOrdering Facility: [facility] Address: [address] [place] [address] Performed By: #### 2 951-2 ####[facility] LABORATORYCLIA [id number] [place] [address] [place] Sodium [Moles/Vol] 153 mmol/L High 136-144 [facility] Comment on above: Order Comment: Speci men Type: BLOOD SPECIMENOrdering Facility: [facility] Address: [address] [place] [address] Performed By: #### 2 951-2 ####[facility] LABORATORYCLIA [id number] [place] [address] [place] Sodium [Moles/Vol] 158 mmol/L High 136-144 [facility] Comment on above: Order Comment: Speci men Type: BLOOD SPECIMENOrdering Facility: [facility] Address: [address] [place] [address] Performed By: #### 2 951-2 ####[facility] LABORATORYCLIA [id number] [address] [place] aPTT PPPon 06-16-2021 aPTT Coag (PPP) [Time] 61.8 s High 23.0-32.4 [facility] Comment on above: Order Comment: Speci men Type: BLOOD SPECIMENOrdering Facility: [facility] Address: [address] [place] [address] Performed By: #### 1 4979-9 ####[facility] LABORATORYCLIA [id number] [address] STATES [facility] aPTT Coag (PPP) [Time] 57.6 s High 23.0-32.4 [facility] Comment on above: Order Comment: Speci men Type: BLOOD SPECIMENOrdering Facility: [facility] Address: [address] [place] [address] Performed By: #### 1 4979-9 ####[facility] LABORATORYCLIA [id number] [address] [place] ALLIED HEALTHon 06-15-2021 ALLIED HEALTH Normal [facility] ALLIED HEALTH Normal [facility] ALLIED HEALTH Normal [facility] ALLIED HEALTH Normal [facility] ARTERIAL BLOOD GASESon 06-15 Base excess Calc (Bld) [Moles/Vol] 3 mmol/L High 0-2 [facility] Comment on above: Order Comment: Speci men Type: ARTERIAL BLOOD SPECIMENOrdering Facility: [facility] Address: [address] [place] [address] Performed By: #### A LLBG ####[facility] LABORATORYCLIA [id number] [address] Body temperature 99.5 [degF] Normal [facility] Comment on above: Order Comment: Speci men Type: ARTERIAL BLOOD SPECIMENOrdering Facility: [facility] Address: [address] [place] [address] Performed By: #### A LLBG ####[facility] LABORATORYCLIA [id number] [address] STATES OF [facility] CALCIUM IONIZED, PH CORRECTED 1.34 mmol/L High 1.08-1.30 [facility] Comment on above: Order Comment: Speci men Type: ARTERIAL BLOOD SPECIMENOrdering Facility: [facility] Address: [address] [place] [address] Performed By: #### A LLBG ####[facility] LABORATORYCLIA [id number] [address] Calcium.ionized (BldV) [Mass/Vol] 1.29 mmol/L Normal 1.08-1.30 [facility] Comment on above: Order Comment: Speci men Type: ARTERIAL BLOOD SPECIMENOrdering Facility: [facility] Address: [address] [place] [address] Performed By: #### A LLBG ####[facility] LABORATORYCLIA [id number] [address] OF [facility] Carboxyhemoglobin (BldA) [Mass fraction] 1.3 % Normal 0.0-2.0 [facility] Comment on above: Order Comment: Speci men Type: ARTERIAL BLOOD SPECIMENOrdering Facility: [facility] Address: [address] [place] [address] Result Comment: Carb oxyhemoglobin Reference Range for Smokers: 2.0-8.0% Performed By: #### A LLBG ####[facility] LABORATORYCLIA [id number] [address] [place] CO2 (Bld) [Partial pressure] 37 mm Hg Normal 36-46 [facility] Comment on above: Order Comment: Speci men Type: ARTERIAL BLOOD SPECIMENOrdering Facility: [facility] Address: [address] [place] [address] Performed By: #### A LLBG ####[facility]ORATORYCLIA [id number] [address] [place] CO2 [Moles/Vol] 24.6 mmol/L Normal 22-28 [facility] Comment on above: Order Comment: Speci men Type: ARTERIAL BLOOD SPECIMENOrdering Facility: [facility] Address: [address] [place] [address] Performed By: #### A LLBG ####[facility] LABORATORYCLIA [id number] [address] CO2 adjusted to patient's actual temperature (Bld) [Partial pressure] 38 mmHg Normal 36-46 [facility] Comment on above: Order Comment: Speci men Type: ARTERIAL BLOOD SPECIMENOrdering Facility: [facility] Address: [address] [place] [address] Performed By: #### A LLBG ####[facility] LABORATORYCLIA [id number] [address] STATES [facility] FIO2 100 % Normal [facility] Comment on above: Order Comment: Speci men Type: ARTERIAL BLOOD SPECIMENOrdering Facility: [facility] Address: [address] [place] [address] Performed By: #### A LLBG ####[facility] LABORATORYCLIA [id number] [address] [place] Glucose [Mass/Vol] 159 mg/dL High 60-105 [facility] Comment on above: Order Comment: Speci men Type: ARTERIAL BLOOD SPECIMENOrdering Facility: [facility] Address: [address] [place] [address] Performed By: #### A LLBG ####[facility]ORATORYCLIA [id number] [address] HCO3 (Bld) [Moles/Vol] 27 mmol/L High 22-26 [facility] Comment on above: Order Comment: Speci men Type: ARTERIAL BLOOD SPECIMENOrdering Facility: [facility] Address: [address] [place] [address] Performed By: #### A LLBG ####[facility] LABORATORYCLIA [id number] [address] OF [facility] Hematocrit (Bld) [Volume fraction] 31.0 % Low 39.0-51.0 [facility] Comment on above: Order Comment: Speci men Type: ARTERIAL BLOOD SPECIMENOrdering Facility: [facility] Address: [address] [place] [address] Performed By: #### A LLBG ####[facility] LABORATORYCLIA [id number] [address] [place] Hemoglobin (Bld) [Mass/Vol] 10.0 g/dL Low 13.0-17.0 [facility] Comment on above: Order Comment: Speci men Type: ARTERIAL BLOOD SPECIMENOrdering Facility: [facility] Address: [address] [place] [address] Performed By: #### A LLBG ####[facility] LABORATORYCLIA [id number] [address] OF [facility] Methemoglobin (Bld) [Mass fraction] % Normal 0.0-1.5 [facility] Comment on above: Order Comment: Speci men Type: ARTERIAL BLOOD SPECIMENOrdering Facility: [facility] Address: [address] [place] [address] Performed By: #### A LLBG ####[facility] LABORATORYCLIA [id number] [address] [place] O2 THERAPY Ventilator Normal [facility] Comment on above: Order Comment: Speci men Type: ARTERIAL BLOOD SPECIMENOrdering Facility: [facility] Address: [address] [place] [address] Performed By: #### A LLBG ####[facility] LABORATORYCLIA [id number] [address] Oxygen (Bld) [Partial pressure] 279 mm Hg High 85-95 [facility] Comment on above: Order Comment: Speci men Type: ARTERIAL BLOOD SPECIMENOrdering Facility: [facility] Address: [address] [place] [address] Performed By: #### A LLBG ####[facility]ORATORYCLIA [id number] [address] Oxygen adjusted to patient's actual temperature (Bld) [Partial pressure] 281 mmHg High 85-95 [facility] Comment on above: Order Comment: Speci men Type: ARTERIAL BLOOD SPECIMENOrdering Facility: [facility] Address: [address] [place] [address] Performed By: #### A LLBG ####[facility] LABORATORYCLIA [id number] [address] OXYGEN SATURATION, ARTERIAL 100 % High 95-98 [facility] Comment on above: Order Comment: Speci men Type: ARTERIAL BLOOD SPECIMENOrdering Facility: [facility] Address: [address] [place] [address] Performed By: #### A LLBG ####[facility] LABORATORYCLIA [id number] [address] Oxyhemoglobin (BldA) [Mass fraction] 98 % Normal 95-98 [facility] Comment on above: Order Comment: Speci men Type: ARTERIAL BLOOD SPECIMENOrdering Facility: [facility] Address: [address] [place] [address] Performed By: #### A LLBG ####[facility] LABORATORYCLIA [id number] [address] [place] pH (Bld) 7.47 [pH] High 7.35-7.45 [facility] Comment on above: Order Comment: Speci men Type: ARTERIAL BLOOD SPECIMENOrdering Facility: [facility] Address: [address] [place] [address] Performed By: #### A LLBG ####[facility]ORATORYCLIA [id number] [address] [place] pH adjusted to patient's actual temperature (Bld) 7.46 High 7.35-7.45 [facility] Comment on above: Order Comment: Speci men Type: ARTERIAL BLOOD SPECIMENOrdering Facility: [facility] Address: [address] [place] [address] Performed By: #### A LLBG ####[facility] LABORATORYCLIA [id number] [address] [place] Potassium [Moles/Vol] 3.6 mmol/L Normal 3.5-5.0 [facility] Comment on above: Order Comment: Speci men Type: ARTERIAL BLOOD SPECIMENOrdering Facility: [facility] Address: [address] [place] [address] Performed By: #### A LLBG ####[facility] LABORATORYCLIA [id number] [address] [place] Sodium [Moles/Vol] 162 mmol/L High 136-144 [facility] Comment on above: Order Comment: Speci men Type: ARTERIAL BLOOD SPECIMENOrdering Facility: [facility] Address: [address] [place] [address] Performed By: #### A LLBG ####[facility] LABORATORYCLIA [id number] [address] [place] Base excess Calc (Bld) [Moles/Vol] 4 mmol/L High 0-2 [facility] Comment on above: Order Comment: Speci men Type: ARTERIAL BLOOD SPECIMENOrdering Facility: [facility] Address: [address] [place] [address] Performed By: #### A LLBG ####[facility] LABORATORYCLIA [id number] [address] [place] Body temperature 100.58 [degF] Normal [facility] Comment on above: Order Comment: Speci men Type: ARTERIAL BLOOD SPECIMENOrdering Facility: [facility] Address: [address] [place] [address] Performed By: #### A LLBG ####[facility] LABORATORYCLIA [id number] [address] [place] CALCIUM IONIZED, PH CORRECTED 1.34 mmol/L High 1.08-1.30 [facility] Comment on above: Order Comment: Speci men Type: ARTERIAL BLOOD SPECIMENOrdering Facility: [facility] Address: [address] [place] [address] Performed By: #### A LLBG ####[facility] LABORATORYCLIA [id number] [place] [address] [place] Calcium.ionized (BldV) [Mass/Vol] 1.33 mmol/L High 1.08-1.30 [facility] Comment on above: Order Comment: Speci men Type: ARTERIAL BLOOD SPECIMENOrdering Facility: [facility] Address: [address] [place] [address] Performed By: #### A LLBG ####[facility] LABORATORYCLIA [id number] [address] [place] Carboxyhemoglobin (BldA) [Mass fraction] 1.5 % Normal 0.0-2.0 [facility] Comment on above: Order Comment: Speci men Type: ARTERIAL BLOOD SPECIMENOrdering Facility: [facility] Address: [address] [place] [address] Result Comment: Carb oxyhemoglobin Reference Range for Smokers: 2.0-8.0% Performed By: #### A LLBG ####[facility] LABORATORYCLIA [id number] [address] [place] CO2 (Bld) [Partial pressure] 46 mm Hg Normal 36-46 [facility] Comment on above: Order Comment: Speci men Type: ARTERIAL BLOOD SPECIMENOrdering Facility: [facility] Address: [address] [place] [address] Performed By: #### A LLBG ####[facility] LABORATORYCLIA [id number] [address] [place] CO2 [Moles/Vol] 26.4 mmol/L Normal 22-28 [facility] Comment on above: Order Comment: Speci men Type: ARTERIAL BLOOD SPECIMENOrdering Facility: [facility] Address: [address] [place] [address] Performed By: #### A LLBG ####[facility] LABORATORYCLIA [id number] [address] CO2 adjusted to patient's actual temperature (Bld) [Partial pressure] 48 mmHg High 36-46 [facility] Comment on above: Order Comment: Speci men Type: ARTERIAL BLOOD SPECIMENOrdering Facility: [facility] Address: [address] [place] [address] Performed By: #### A LLBG ####[facility]ORATORYCLIA [id number] [address] [place] FIO2 100 % Normal [facility] Comment on above: Order Comment: Speci men Type: ARTERIAL BLOOD SPECIMENOrdering Facility: [facility] Address: [address] [place] [address] Performed By: #### A LLBG ####[facility] LABORATORYCLIA [id number] [address] [place] Glucose [Mass/Vol] 132 mg/dL High 60-105 [facility] Comment on above: Order Comment: Speci men Type: ARTERIAL BLOOD SPECIMENOrdering Facility: [facility] Address: [address] [place] [address] Performed By: #### A LLBG ####[facility] LABORATORYCLIA [id number] [address] [place] HCO3 (Bld) [Moles/Vol] 29 mmol/L High 22-26 [facility] Comment on above: Order Comment: Speci men Type: ARTERIAL BLOOD SPECIMENOrdering Facility: [facility] Address: [address] [place] [address] Performed By: #### A LLBG ####[facility] LABORATORYCLIA [id number] [address] Hematocrit (Bld) [Volume fraction] 32.3 % Low 39.0-51.0 [facility] Comment on above: Order Comment: Speci men Type: ARTERIAL BLOOD SPECIMENOrdering Facility: [facility] Address: [address] [place], [place] [id number] Performed By: #### A LLBG ####[facility] LABORATORYCLIA [id number] [address] [place] Hemoglobin (Bld) [Mass/Vol] 10.4 g/dL Low 13.0-17.0 [facility] Comment on above: Order Comment: Speci men Type: ARTERIAL BLOOD SPECIMENOrdering Facility: [facility] Address: [address] [place] [address] Performed By: #### A LLBG ####[facility] LABORATORYCLIA [id number] [address] [place] Methemoglobin (Bld) [Mass fraction] % Normal 0.0-1.5 [facility] Comment on above: Order Comment: Speci men Type: ARTERIAL BLOOD SPECIMENOrdering Facility: [facility] Address: [address] [place] [address] Performed By: #### A LLBG ####[facility] LABORATORYCLIA [id number] [address] O2 THERAPY NR=Non-Rebreather Mask Normal [facility] Comment on above: Order Comment: Speci men Type: ARTERIAL BLOOD SPECIMENOrdering Facility: [facility] Address: [address] [place] [address] Performed By: #### A LLBG ####[facility] LABORATORYCLIA [id number] [address] [place] Oxygen (Bld) [Partial pressure] 130 mm Hg High 85-95 [facility] Comment on above: Order Comment: Speci men Type: ARTERIAL BLOOD SPECIMENOrdering Facility: [facility] Address: [address] [place] [address] Performed By: #### A LLBG ####[facility] LABORATORYCLIA [id number] [address] [place] Oxygen adjusted to patient's actual temperature (Bld) [Partial pressure] 136 mmHg High 85-95 [facility] Comment on above: Order Comment: Speci men Type: ARTERIAL BLOOD SPECIMENOrdering Facility: [facility] Address: [address] [place] [address] Performed By: #### A LLBG ####[facility] LABORATORYCLIA [id number] [address] OXYGEN SATURATION, ARTERIAL 99 % High 95-98 [facility] Comment on above: Order Comment: Speci men Type: ARTERIAL BLOOD SPECIMENOrdering Facility: [facility] Address: [address] [place] [address] Performed By: #### A LLBG ####[facility] LABORATORYCLIA [id number] [address] Oxyhemoglobin (BldA) [Mass fraction] 97 % Normal 95-98 [facility] Comment on above: Order Comment: Speci men Type: ARTERIAL BLOOD SPECIMENOrdering Facility: [facility] Address: [address] [place] [address] Performed By: #### A LLBG ####[facility] LABORATORYCLIA [id number] [address] [place] pH (Bld) 7.41 [pH] Normal 7.35-7.45 [facility] Comment on above: Order Comment: Speci men Type: ARTERIAL BLOOD SPECIMENOrdering Facility: [facility] Address: [address] [place] [address] Performed By: #### A LLBG ####[facility] LABORATORYCLIA [id number] [address] pH adjusted to patient's actual temperature (Bld) 7.40 Normal 7.35-7.45 [facility] Comment on above: Order Comment: Speci men Type: ARTERIAL BLOOD SPECIMENOrdering Facility: [facility] Address: [address] [place] [address] Performed By: #### A LLBG ####[facility] LABORATORYCLIA [id number] [address] [place] Potassium [Moles/Vol] 3.8 mmol/L Normal 3.5-5.0 [facility] Comment on above: Order Comment: Speci men Type: ARTERIAL BLOOD SPECIMENOrdering Facility: [facility] Address: [address] [place] [address] Performed By: #### A LLBG ####[facility] LABORATORYCLIA [id number] [address] [address] [place] [facility] Sodium [Moles/Vol] 166 mmol/L High 136-144 [facility] Comment on above: Order Comment: Speci men Type: ARTERIAL BLOOD SPECIMENOrdering Facility: [facility] Address: [address] [place] [address] Performed By: #### A LLBG ####[facility] LABORATORYCLIA [id number] [address] [place] Bacteria Bld Culton 06-15-19 22 Bacteria identified Cx Nom (Bld) CULTURE, BLOOD: No growth 5 days Normal [facility] Comment on above: Performed By: #### 6 00-7 ####[facility] LABORATORYCLIA [id number] [address] [place] Basic metabolic 2000 panelon 06-15-2021 Anion gap [Moles/Vol] 9 mmol/L Normal 9-18 [facility] Comment on above: Order Comment: Speci men Type: BLOOD SPECIMEN Performed By: #### 2 4321-2, 2776-05, ####[facility] LABORATORYCLIA [id number] [address] [place] [facility] Calcium [Mass/Vol] 9.0 mg/dL Normal 8.5-10.2 [facility] Comment on above: Order Comment: Speci men Type: BLOOD SPECIMEN Performed By: #### 2 4321-2, 2776-, ####[facility] LABORATORYCLIA [id number] [address] [place] Chloride [Moles/Vol] 125 mmol/L High 97-105 [facility] Comment on above: Order Comment: Speci men Type: BLOOD SPECIMEN Performed By: #### 2 4321-2, 2776-05, ####[facility] LABORATORYCLIA [id number] [place], [place] [id number] [place] [address] [place] [facility] CO2 [Moles/Vol] 29 mmol/L Normal 22-30 [facility] Comment on above: Order Comment: Speci men Type: BLOOD SPECIMEN Performed By: #### 2 4321-2, 2776-05, ####[facility] LABORATORYCLIA [id number] [place], [place] [id number] [place] [address] [place] Creatinine [Mass/Vol] 0.81 mg/dL Normal 0.73-1.22 [facility] Comment on above: Order Comment: Speci men Type: BLOOD SPECIMEN Performed By: #### 2 4321-2, 2776-05, ####[facility] LABORATORYCLIA [id number] [address] [place] GFR/1.73 sq M.predicted MDRD (S/P/Bld) [Vol rate/Area] mL/min/{1.73_m2} Normal [facility] Comment on above: [...] GFR. Performed By: #### 2 4321-2, 2776-05, ####[facility] LABORATORYCLIA [id number] [place], [place] [address] [place] [address] [place] Glucose [Mass/Vol] 124 mg/dL High 74-99 [facility] Comment on above: Order Comment: Speci men Type: BLOOD SPECIMEN Result Comment: The [place] Diabetes Association (ADA) provides guidance for cutoff [...] Standards of Medical Care in Diabetes 2016, [place] [employer]. Diabetes Care. 2016.39(Suppl 1). Performed By: #### 2 4321-2, 2776-05, ####[facility] LABORATORYCLIA [id number] [address] [place] Potassium [Moles/Vol] 3.8 mmol/L Normal 3.7-5.1 [facility] Comment on above: Order Comment: Speci men Type: BLOOD SPECIMEN Performed By: #### 2 4321-2, 2776-05, ####[facility] LABORATORYCLIA [id number] [address] STATES [facility] Sodium [Moles/Vol] 163 mmol/L High 136-144 [facility] Comment on above: Order Comment: Speci men Type: BLOOD SPECIMEN Performed By: #### 2 4321-2, 2776-05, ####[facility] LABORATORYCLIA [id number] [address] [place] Urea nitrogen [Mass/Vol] 35 mg/dL High 9-24 [facility] Comment on above: Order Comment: Speci men Type: BLOOD SPECIMEN Performed By: #### 2 4321-2, 2776-05, ####[facility] LABORATORYCLIA [id number] [address] [place] [facility] CBC panel Auto (Bld)on 06-15 Erythrocyte distribution width (RBC) [Ratio] 16.3 % High 11.5-15.0 [facility] Comment on above: Order Comment: Speci men Type: BLOOD SPECIMENOrdering Facility: [facility] Address: [address] [place] [address] Performed By: #### 5 8410-2 ####[facility] LABORATORYCLIA [id number] [address] Hematocrit (Bld) [Volume fraction] 30.0 % Low 39.0-51.0 [facility] Comment on above: Order Comment: Speci men Type: BLOOD SPECIMENOrdering Facility: [facility] Address: [address] [place] [address] Performed By: #### 5 8410-2 ####[facility] LABORATORYCLIA [id number] [address] Hemoglobin (Bld) [Mass/Vol] 8.9 g/dL Low 13.0-17.0 [facility] Comment on above: Order Comment: Speci men Type: BLOOD SPECIMENOrdering Facility: [facility] Address: [address] [place] [address] Performed By: #### 5 8410-2 ####[facility] LABORATORYCLIA [id number] [address] MCH (RBC) [Entitic mass] 28.7 pg Normal 26.0-34.0 [facility] Comment on above: Order Comment: Speci men Type: BLOOD SPECIMENOrdering Facility: [facility] Address: [address] [place] [address] Performed By: #### 5 8410-2 ####[facility] LABORATORYCLIA [id number] [address] [place] MCHC (RBC) [Mass/Vol] 29.7 g/dL Low 30.5-36.0 [facility] Comment on above: Order Comment: Speci men Type: BLOOD SPECIMENOrdering Facility: [facility] Address: [address] [place] [address] Performed By: #### 5 8410-2 ####[facility] LABORATORYCLIA [id number] [address] [place] [facility] MCV (RBC) [Entitic vol] 96.8 fL Normal 80.0-100.0 [facility] Comment on above: Order Comment: Speci men Type: BLOOD SPECIMENOrdering Facility: [facility] Address: [address] [place] [address] Performed By: #### 5 8410-2 ####[facility] LABORATORYCLIA [id number] [address] Nucleated RBC (Bld) [#/Vol] 10*3/uL Normal <0.01 [facility] Comment on above: Order Comment: Speci men Type: BLOOD SPECIMENOrdering Facility: [facility] Address: [address] [place] [address] Performed By: #### 5 8410-2 ####[facility] LABORATORYCLIA [id number] [address] Platelet mean volume (Bld) [Entitic vol] 12.3 fL Normal 9.0-12.7 [facility] Comment on above: Order Comment: Speci men Type: BLOOD SPECIMENOrdering Facility: [facility] Address: [address] [place] [address] Performed By: #### 5 8410-2 ####[facility] LABORATORYCLIA [id number] [address] Platelets (Bld) [#/Vol] 226 10*3/uL Normal 150-400 [facility] Comment on above: Order Comment: Speci men Type: BLOOD SPECIMENOrdering Facility: [facility] Address: [address] [place] [address] Performed By: #### 5 8410-2 ####[facility] LABORATORYCLIA [id number] [address] [place] RBC (Bld) [#/Vol] 3.10 10*6/uL Low 4.20-6.00 [facility] Comment on above: Order Comment: Speci men Type: BLOOD SPECIMENOrdering Facility: [facility] Address: [address] [place] [address] Performed By: #### 5 8410-2 ####[facility] LABORATORYCLIA [id number] [address] WBC (Bld) [#/Vol] 10.77 10*3/uL Normal 3.70-11.00 [facility] Comment on above: Order Comment: Speci men Type: BLOOD SPECIMENOrdering Facility: [facility] Address: [address] [place] [address] Performed By: #### 5 8410-2 ####[facility] LABORATORYCLIA [id number] [address] Erythrocyte distribution width (RBC) [Ratio] 16.2 % High 11.5-15.0 [facility] Comment on above: Order Comment: Speci men Type: BLOOD SPECIMENOrdering Facility: [facility] Address: [address] [place] [address] Performed By: #### 5 8410-2 ####[facility] LABORATORYCLIA [id number] [address] Hematocrit (Bld) [Volume fraction] 34.8 % Low 39.0-51.0 [facility] Comment on above: Order Comment: Speci men Type: BLOOD SPECIMENOrdering Facility: [facility] Address: [address] [place] [address] Performed By: #### 5 8410-2 ####[facility] LABORATORYCLIA [id number] [address] OF [facility] Hemoglobin (Bld) [Mass/Vol] 10.0 g/dL Low 13.0-17.0 [facility] Comment on above: Order Comment: Speci men Type: BLOOD SPECIMENOrdering Facility: [facility] Address: [address] [place] [address] Performed By: #### 5 8410-2 ####[facility] LABORATORYCLIA [id number] [address] MCH (RBC) [Entitic mass] 27.5 pg Normal 26.0-34.0 [facility] Comment on above: Order Comment: Speci men Type: BLOOD SPECIMENOrdering Facility: [facility] Address: [address] [place] [address] Performed By: #### 5 8410-2 ####[facility] LABORATORYCLIA [id number] [address] MCHC (RBC) [Mass/Vol] 28.7 g/dL Low 30.5-36.0 [facility] Comment on above: Order Comment: Speci men Type: BLOOD SPECIMENOrdering Facility: [facility] Address: [address] [place] [address] Performed By: #### 5 8410-2 ####[facility] LABORATORYCLIA [id number] [address] MCV (RBC) [Entitic vol] 95.6 fL Normal 80.0-100.0 [facility] Comment on above: Order Comment: Speci men Type: BLOOD SPECIMENOrdering Facility: [facility] Address: [address] [place] [address] Performed By: #### 5 8410-2 ####[facility] LABORATORYCLIA [id number] [address] Nucleated RBC (Bld) [#/Vol] 10*3/uL Normal <0.01 [facility] Comment on above: Order Comment: Speci men Type: BLOOD SPECIMENOrdering Facility: [facility] Address: [address] [place] [address] Performed By: #### 5 8410-2 ####[facility] LABORATORYCLIA [id number] [address] Platelet mean volume (Bld) [Entitic vol] 11.9 fL Normal 9.0-12.7 [facility] Comment on above: Order Comment: Speci men Type: BLOOD SPECIMENOrdering Facility: [facility] Address: [address] [place] [address] Performed By: #### 5 8410-2 ####[facility] LABORATORYCLIA [id number] [address] Platelets (Bld) [#/Vol] 246 10*3/uL Normal 150-400 [facility] Comment on above: Order Comment: Speci men Type: BLOOD SPECIMENOrdering Facility: [facility] Address: [address] [place] [address] Performed By: #### 5 8410-2 ####[facility] LABORATORYCLIA [id number] [address] RBC (Bld) [#/Vol] 3.64 10*6/uL Low 4.20-6.00 [facility] Comment on above: Order Comment: Speci men Type: BLOOD SPECIMENOrdering Facility: [facility] Address: [address] [place] [address] Performed By: #### 5 8410-2 ####[facility] LABORATORYCLIA [id number] [address] WBC (Bld) [#/Vol] 11.45 10*3/uL High 3.70-11.00 [facility] Comment on above: Order Comment: Speci men Type: BLOOD SPECIMENOrdering Facility: [facility] Address: [address] [place] [address] Performed By: #### 5 8410-2 ####[facility] LABORATORYCLIA [id number] [address] Erythrocyte distribution width (RBC) [Ratio] 15.9 % High 11.5-15.0 [facility] Comment on above: Order Comment: Speci men Type: BLOOD SPECIMEN Performed By: #### 5 8410-2 ####[facility] LABORATORYCLIA [id number] [address] Hematocrit (Bld) [Volume fraction] 35.8 % Low 39.0-51.0 [facility] Comment on above: Order Comment: Speci men Type: BLOOD SPECIMEN Performed By: #### 5 8410-2 ####[facility] LABORATORYCLIA [id number] [address] Hemoglobin (Bld) [Mass/Vol] 10.4 g/dL Low 13.0-17.0 [facility] Comment on above: Order Comment: Speci men Type: BLOOD SPECIMEN Performed By: #### 5 8410-2 ####[facility] LABORATORYCLIA [id number] [address] MCH (RBC) [Entitic mass] 28.0 pg Normal 26.0-34.0 [facility] Comment on above: Order Comment: Speci men Type: BLOOD SPECIMEN Performed By: #### 5 8410-2 ####[facility] LABORATORYCLIA [id number] [address] MCHC (RBC) [Mass/Vol] 29.1 g/dL Low 30.5-36.0 [facility] Comment on above: Order Comment: Speci men Type: BLOOD SPECIMEN Performed By: #### 5 8410-2 ####[facility] LABORATORYCLIA [id number] [address] MCV (RBC) [Entitic vol] 96.2 fL Normal 80.0-100.0 [facility] Comment on above: Order Comment: Speci men Type: BLOOD SPECIMEN Performed By: #### 5 8410-2 ####[facility] LABORATORYCLIA [id number] [address] Nucleated RBC (Bld) [#/Vol] 10*3/uL Normal <0.01 [facility] Comment on above: Order Comment: Speci men Type: BLOOD SPECIMEN Performed By: #### 5 8410-2 ####[facility] LABORATORYCLIA [id number] [address] Platelet mean volume (Bld) [Entitic vol] 11.6 fL Normal 9.0-12.7 [facility] Comment on above: Order Comment: Speci men Type: BLOOD SPECIMEN Performed By: #### 5 8410-2 ####[facility] LABORATORYCLIA [id number] [address] Platelets (Bld) [#/Vol] 265 10*3/uL Normal 150-400 [facility] Comment on above: Order Comment: Speci men Type: BLOOD SPECIMEN Performed By: #### 5 8410-2 ####[facility] LABORATORYCLIA [id number] [address] RBC (Bld) [#/Vol] 3.72 10*6/uL Low 4.20-6.00 [facility] Comment on above: Order Comment: Speci men Type: BLOOD SPECIMEN Performed By: #### 5 8410-2 ####[facility] LABORATORYCLIA [id number] [address] WBC (Bld) [#/Vol] 12.24 10*3/uL High 3.70-11.00 [facility] Comment on above: Order Comment: Speci men Type: BLOOD SPECIMEN Performed By: #### 5 8410-2 ####[facility] LABORATORYCLIA [id number] [address] CONSULTon 06-15-2021 CONSULT Normal [facility] CONSULT Normal [facility] CONSULT Normal [facility] CT BRAIN WO IVCONon 06-15-19 CT BRAIN WO IVCON Normal [facility] CT CHEST W IVCON PEon 2021 CT CHEST W IVCON PE Invalid Interpretation Code [facility] Chloride Unsp time (U) [Mole s/Vol]on 06-15-2021 Chloride (U) [Moles/Vol] 28 mmol/L Normal 16-250 [facility] Comment on above: Order Comment: Speci men Type: URINE SPECIMENOrdering Facility: [facility] Address: [address] [place] [address] Performed By: #### U TPR, 81572-3, 27461-5, 91242-5 ####[facility] LABORATORYCLIA [id number] [address] [place] Comprehensive metabolic 2000 panelon 06-15-2021 Albumin [Mass/Vol] 2.8 g/dL Low 3.9-4.9 [facility] Comment on above: Order Comment: Speci men Type: BLOOD SPECIMENOrdering Facility: [facility] Address: [address] [place] [address] Performed By: #### 2 4323-8 ####[facility] LABORATORYCLIA [id number] [address] [place] ALP [Catalytic activity/Vol] 74 U/L Normal 38-113 [facility] Comment on above: Order Comment: Speci men Type: BLOOD SPECIMENOrdering Facility: [facility] Address: [address] [place] [address] Performed By: #### 2 4323-8 ####[facility] LABORATORYCLIA [id number] [address] ALT With P-5'-P [Catalytic activity/Vol] 50 U/L Normal 10-54 [facility] Comment on above: Order Comment: Speci men Type: BLOOD SPECIMENOrdering Facility: [facility] Address: [address] [place] [address] Performed By: #### 2 4323-8 ####[facility] LABORATORYCLIA [id number] [address] Anion gap [Moles/Vol] 12 mmol/L Normal 9-18 [facility] Comment on above: Order Comment: Speci men Type: BLOOD SPECIMENOrdering Facility: [facility] Address: [address] [place] [address] Performed By: #### 2 4323-8 ####[facility] LABORATORYCLIA [id number] [address] [place] AST With P-5'-P [Catalytic activity/Vol] 36 U/L Normal 14-40 [facility] Comment on above: Order Comment: Speci men Type: BLOOD SPECIMENOrdering Facility: [facility] Address: [address] [place] [address] Performed By: #### 2 4323-8 ####[facility]ATORYCLIA [id number] [address] [place] Bilirubin [Mass/Vol] 0.5 mg/dL Normal 0.2-1.3 [facility] Comment on above: Order Comment: Speci men Type: BLOOD SPECIMENOrdering Facility: [facility] Address: [address] [place] [address] Performed By: #### 2 4323-8 ####[facility]ATORYCLIA [id number] [address] [place] Calcium [Mass/Vol] 8.8 mg/dL Normal 8.5-10.2 [facility] Comment on above: Order Comment: Speci men Type: BLOOD SPECIMENOrdering Facility: [facility] Address: [address] [place] [address] Performed By: #### 2 4323-8 ####[facility] LABORATORYCLIA [id number] [place] [address] [place] Chloride [Moles/Vol] 126 mmol/L High 97-105 [facility] Comment on above: Order Comment: Speci men Type: BLOOD SPECIMENOrdering Facility: [facility] Address: [address] [place] [address] Performed By: #### 2 4323-8 ####[facility]ORATORYCLIA [id number] [place] [address] [place] CO2 [Moles/Vol] 24 mmol/L Normal 22-30 [facility] Comment on above: Order Comment: Speci men Type: BLOOD SPECIMENOrdering Facility: [facility] Address: [address] [place] [address] Performed By: #### 2 4323-8 ####[facility]ORATORYCLIA [id number] [place] [address] [place] Creatinine [Mass/Vol] 0.84 mg/dL Normal 0.73-1.22 [facility] Comment on above: Order Comment: Johncara feldman Type: BLOOD SPECIMENOrdering Facility: [facility] Address: [address] [place], [place] [id number] Performed By: #### 2 4323-8 ####[facility] LABORATORYCLIA [id number] [place] [address] [place] GFR/1.73 sq M.predicted MDRD (S/P/Bld) [Vol rate/Area] mL/min/{1.73_m2} Normal [facility] Comment on above: Order Comment: Johncara feldman Type: BLOOD SPECIMENOrdering Facility: [facility] Address: [address] [place], [place] [id number] Result Comment: >60e GFR (Estimated GFR) Units [...] actual GFR. Performed By: #### 2 4323-8 ####[facility] LABORATORYCLIA [id number] [place] [address] [place] Glucose [Mass/Vol] 142 mg/dL High 74-99 [facility] Comment on above: Order Comment: Shira francia Type: BLOOD SPECIMENOrdering Facility: [facility] Address: [address] [place] [address] Result Comment: The [place] [employer] (ADA) provides guidance for cutoff [...] Standards of Medical Care in Diabetes 2016, [place] [employer]. Diabetes Care. 2016.39(Suppl 1). Performed By: #### 2 4323-8 ####[facility] LABORATORYCLIA [id number] [place] [address] [place] Potassium [Moles/Vol] 3.8 mmol/L Normal 3.7-5.1 [facility] Comment on above: Order Comment: Speci [facility] Type: BLOOD SPECIMENOrdering Facility: [facility] Address: [address] [place] [address] Performed By: #### 2 4323-8 ####[facility] LABORATORYCLIA [id number] [place] [address] [place] Protein [Mass/Vol] 6.1 g/dL Low 6.3-8.0 [facility] Comment on above: Order Comment: Speci men Type: BLOOD SPECIMENOrdering Facility: [facility] Address: [address] [place] [address] Performed By: #### 2 4323-8 ####[facility] LABORATORYCLIA [id number] [place] [address] [place] Sodium [Moles/Vol] 162 mmol/L High 136-144 [facility] Comment on above: Order Comment: Speci men Type: BLOOD SPECIMENOrdering Facility: [facility] Address: [address] [place] [address] Performed By: #### 2 4323-8 ####[facility] LABORATORYCLIA [id number] [place] [address] [place] Urea nitrogen [Mass/Vol] 33 mg/dL High 9-24 [facility] Comment on above: Order Comment: Speci men Type: BLOOD SPECIMENOrdering Facility: [facility] Address: [address] [place] [address] Performed By: #### 2 4323-8 ####[facility] LABORATORYCLIA [id number] [place] [address] [place] Creatinine Unsp time (U) [Ma ss/Vol]on 06-15-2021 Creatinine (U) [Mass/Vol] 87.0 mg/dL Normal 46.8-314.5 [facility] Comment on above: Order Comment: Speci men Type: URINE SPECIMENOrdering Facility: [facility] Address: [address] [place] [address] Performed By: #### U TPR, 83271-3, 20717-8, 58385-6 ####[facility] LABORATORYCLIA [id number] [address] [place] HIGH SENSITIVITY TROPONIN To n 06-15-2021 HIGH SENSITIVITY TAMIKO 23 ng/L High <12 [facility] Comment on above: Order Comment: Speci men Type: BLOOD SPECIMENOrdering Facility: [facility] Address: [address] [place] [address] Result Comment: When assessing risk for acute [...] day MACE. Performed By: #### P ROCAL, 66248-4, HSTNT ####[facility] LABORATORYCLIA [id number] [place] [address] [place] Lactate (Bld) [Moles/Vol]on 06-15-2021 Lactate [Moles/Vol] 0.8 mmol/L Normal 0.5-2.2 [facility] Comment on above: Order Comment: Speci men Type: BLOOD SPECIMENOrdering Facility: [facility] Address: [address] [place] [address] Performed By: #### 3 2693-4 ####[facility] LABORATORYCLIA [id number] [place] [address] [place] Magnesium SerPl-mCncon 06-15 Magnesium [Mass/Vol] 3.0 mg/dL High 1.7-2.3 [facility] Comment on above: Order Comment: Speci men Type: BLOOD SPECIMEN Performed By: #### 2 4321-2, 2777-1, 12715-9 ####[facility] LABORATORYCLIA [id number] [address] [place] NT-proBNP SerPl-mCncon 06-15 Natriuretic peptide.B prohormone N-Terminal [Mass/Vol] 265 pg/mL High <125 [facility] Comment on above: Order Comment: Speci men Type: BLOOD SPECIMENOrdering Facility: [facility] Address: [address] [place] [address] Performed By: #### P JULIANNE, 91087-9, HSTNT ####[facility] LABORATORYCLIA [id number] [address] [place] Osmolality Uron 06-15-2021 Osmolality (U) [Osmolality] 606 mosm/kg Normal 50-1,200 [facility] Comment on above: Order Comment: Speci men Type: URINE SPECIMENOrdering Facility: [facility] HOSP[facility] Address: [address] [place] [address] Performed By: #### 2 695-5 ####[facility] LABORATORYCLIA [id number] [address] PROCALCITONIN (LAB)on 2021 Procalcitonin [Mass/Vol] 0.21 ng/mL High <0.09 [facility] Comment on above: Order Comment: Speci men Type: BLOOD SPECIMENOrdering Facility: [facility] Address: [address] [place] [address] Result Comment: For a guided interpretation of test results, please visit the Change in Procalcitonin Calculator, [email or web address]. Performed By: #### P JULIANNE, 2951-2 ####[facility] LABORATORYCLIA [id number] [address] STATES [facility] Procalcitonin [Mass/Vol] 0.17 ng/mL High <0.09 [facility] Comment on above: Order Comment: Johncara feldman Type: BLOOD SPECIMENOrdering Facility: [facility] Address: [address] [place] [address] Result Comment: For a guided interpretation of test results, please visit the Change in Procalcitonin Calculator, [email or web address]. Performed By: #### P ROCAL, 36394-6, HSTNT ####[facility] LABORATORYCLIA [id number] [place] [address] [place] PROTEIN RANDOM URon 06-15-19 22 Protein (U) [Mass/Vol] 175 mg/dL High 0-20 [facility] Comment on above: Order Comment: Shira francia Type: URINE SPECIMENOrdering Facility: [facility] Address: [address] [place] [address] Performed By: #### U TPR, 79147-7, 58115-1, 94931-6 ####[facility] LABORATORYCLIA [id number] [address] [place] PT panel Coag (PPP)on 2021 INR Coag (PPP) [Relative time] 1.1 {INR} Normal <1.4 [facility] Comment on above: Order Comment: Johncara feldman Type: BLOOD SPECIMENOrdering Facility: [facility] Address: [address] [place] [address] Result Comment: Yris min K Antagonist (VKA) Therapeutic Range: INR 2 to 3 (Target INR of 2.5)Note: For patients treated with VKA drugs, such as warfarin, the [place] [employer] 2012 Guideline recommends [...] al. Chest 2012, 141:7S-47SNishimura RA, et al. [facility] 2017, 70: 252-289 Performed By: #### 3 4528-0, 70182-6 ####[facility] LABORATORYCLIA [id number] [place] [address] [place] PT Coag (PPP) [Time] 11.4 s Normal <13.1 [facility] Comment on above: Order Comment: Speci men Type: BLOOD SPECIMENOrdering Facility: [facility] Address: [address] [place] [address] Performed By: #### 3 4528-0, 81912-9 ####[facility] LABORATORYCLIA [id number] [place] [address] [place] Phosphate SerPl-mCncon 06-15 Phosphate [Mass/Vol] 2.6 mg/dL Low 2.7-4.8 [facility] Comment on above: Order Comment: Speci men Type: BLOOD SPECIMEN Performed By: #### 2 4321-2, 2777-1, 28377-4 ####[facility] LABORATORYCLIA [id number] [place] [address] [place] Sodium ?Tm Ur-sCncon 022 Sodium Unsp time (U) [Moles/Vol] 34 mmol/L Normal 14-216 [facility] Comment on above: Order Comment: Speci men Type: URINE SPECIMENOrdering Facility: [facility] Address: [address] [place] [address] Performed By: #### U TPR, 85880-4, 80730-2, 09529-5 ####[facility] LABORATORYCLIA [id number] [place] [address] [place] Sodium SerPl-sCncon 06-15-19 22 Sodium [Moles/Vol] 159 mmol/L High 136-144 [facility] Comment on above: Order Comment: Speci men Type: BLOOD SPECIMENOrdering Facility: [facility] Address: [address] [place] [address] Performed By: #### P JULIANNE 2951-2 ####[facility] LABORATORYCLIA [id number] [address] THERAPY NTon 06-15-2021 THERAPY NT Normal [facility] Urinalysis complete panel (U )on 06-15-2021 Bacteria LM.HPF (Urine sed) [#/Area] None Seen Normal None Seen [facility] Comment on above: Order Comment: Speci men Type: URINE SPECIMENOrdering Facility: [facility] Address: [address] [place] [address] Performed By: #### 2 4356-8 ####[facility] SERVICESCLIA [id number] [address] Bilirubin Ql (U) Negative Normal Negative [facility] Comment on above: Order Comment: Speci men Type: URINE SPECIMENOrdering Facility: [facility] Address: [address] [place] [address] Performed By: #### 2 4356-8 ####[facility]ITALIA [id number] [address] Clarity (Unsp spec) Cloudy Abnormal Clear [facility] Comment on above: Order Comment: Speci men Type: URINE SPECIMENOrdering Facility: [facility] Address: [address] [place] [address] Performed By: #### 2 4356-8 ####[facility] LABORATORYCLIA [id number] [address] Color (U) Yellow Normal Yellow [facility] Comment on above: Order Comment: Speci men Type: URINE SPECIMENOrdering Facility: [facility] Address: [address] [place] [address] Performed By: #### 2 4356-8 ####[facility] LABORATORYCLIA [id number] [address] Epithelial cells LM.HPF (Urine sed) [#/Area] 7.1 /[HPF] Normal [facility] Comment on above: Order Comment: Speci men Type: URINE SPECIMENOrdering Facility: [facility] Address: [address] [place] [address] Performed By: #### 2 4356-8 ####[facility] LABORATORYCLIA [id number] [address] Glucose Test strip (U) [Mass/Vol] Negative Normal Negative [facility] Comment on above: Order Comment: Speci men Type: URINE SPECIMENOrdering Facility: [facility] Address: [address] [place] [address] Performed By: #### 2 4356-8 ####[facility] LABORATORYCLIA [id number] [address] Granular casts (Urine sed) [#/Area] /[LPF] Abnormal 0 /LPF [facility] Comment on above: Order Comment: Speci men Type: URINE SPECIMENOrdering Facility: [facility] Address: [address] [place] [address] Performed By: #### 2 4356-8 ####[facility] LABORATORYCLIA [id number] [address] Hemoglobin Ql (U) Moderate Abnormal Negative [facility] Comment on above: Order Comment: Speci men Type: URINE SPECIMENOrdering Facility: [facility] Address: [address] [place] [address] Performed By: #### 2 4356-8 ####[facility] LABORATORYCLIA [id number] [address] Hyaline casts (Urine sed) [#/Area] /[LPF] Abnormal 0 /LPF [facility] Comment on above: Order Comment: Speci men Type: URINE SPECIMENOrdering Facility: [facility] Address: [address] [place] [address] Performed By: #### 2 4356-8 ####[facility] LABORATORYCLIA [id number] [address] OF [facility] Ketones Ql (U) Negative Normal Negative [facility] Comment on above: Order Comment: Speci men Type: URINE SPECIMENOrdering Facility: [facility] Address: [address] [place] [address] Performed By: #### 2 4356-8 ####[facility] LABORATORYCLIA [id number] [address] Leukocyte esterase Test strip Ql (U) Negative Normal Negative [facility] Comment on above: Order Comment: Speci men Type: URINE SPECIMENOrdering Facility: [facility] Address: [address] [place] [address] Performed By: #### 2 4356-8 ####[facility] LABORATORYCLIA [id number] [address] [place] Nitrite Ql (U) Negative Normal Negative [facility] Comment on above: Order Comment: Speci men Type: URINE SPECIMENOrdering Facility: [facility] Address: [address] [place] [address] Performed By: #### 2 4356-8 ####[facility] LABORATORYCLIA [id number] [address] [place] pH (U) 6.0 [pH] Normal 5.0-8.0 [facility] Comment on above: Order Comment: Speci men Type: URINE SPECIMENOrdering Facility: [facility] Address: [address] [place] [address] Performed By: #### 2 4356-8 ####[facility] LABORATORYCLIA [id number] [address] [place] Protein (U) [Mass/Vol] 100 mg/dL Abnormal Negative [facility] Comment on above: Order Comment: Speci men Type: URINE SPECIMENOrdering Facility: [facility] Address: [address] [place] [address] Performed By: #### 2 4356-8 ####[facility]ORATORYCLIA [id number] [address] RBC LM.HPF (Urine sed) [#/Area] 0-3 /HPF Normal 0-3 /HPF [facility] Comment on above: Order Comment: Speci men Type: URINE SPECIMENOrdering Facility: [facility] Address: [address] [place] [address] Performed By: #### 2 4356-8 ####[facility] LABORATORYCLIA [id number] [address] Specific gravity (U) [Rel density] 1.024 Normal 1.005-1.030 [facility] Comment on above: Order Comment: Speci men Type: URINE SPECIMENOrdering Facility: [facility] Address: [address] [place] [address] Performed By: #### 2 4356-8 ####[facility] LABORATORYCLIA [id number] [address] Urobilinogen Ql (U) 0.2 EU/dL Normal 0.2-1.0 EU/dL [facility] Comment on above: Order Comment: Speci men Type: URINE SPECIMENOrdering Facility: [facility] Address: [address] [place] [address] Performed By: #### 2 4356-8 ####[facility] LABORATORYCLIA [id number] [address] WBC LM.HPF (Urine sed) [#/Area] 0-5 /HPF Normal 0-5 /HPF [facility] Comment on above: Order Comment: Speci men Type: URINE SPECIMENOrdering Facility: [facility] Address: [address] [place] [address] Performed By: #### 2 4356-8 ####[facility] LABORATORYCLIA [id number] [address] [place] XR CHEST 1V FRONTALon 2021 XR CHEST 1V FRONTAL Normal [facility] XR CHEST 1V FRONTAL PORTon 0 06-15-2021 XR CHEST 1V FRONTAL PORT Normal [facility] XR CHEST 1V FRONTAL PORT Normal [facility] aPTT PPPon 06-15-2021 aPTT Coag (PPP) [Time] 30.9 s Normal 23.0-32.4 [facility] Comment on above: Order Comment: Speci men Type: BLOOD SPECIMENOrdering Facility: [facility] Address: [address] [place], [place] [id number] Performed By: #### 3 4528-0, 99856-2 ####[facility] LABORATORYCLIA [id number] [place] [address] [place] Basic metabolic 2000 panelon 06-14-2021 Anion gap [Moles/Vol] 8 mmol/L Low 9-18 [facility] Comment on above: Order Comment: Speci men Type: BLOOD SPECIMEN Performed By: #### 2 4321-2, 2776-, ####[facility] LABORATORYCLIA [id number] [place] [address] [place] Calcium [Mass/Vol] 8.9 mg/dL Normal 8.5-10.2 [facility] Comment on above: Order Comment: Speci men Type: BLOOD SPECIMEN Performed By: #### 2 4321-2, 2776-05, ####[facility] LABORATORYCLIA [id number] [place] [address] [place] Chloride [Moles/Vol] 121 mmol/L High 97-105 [facility] Comment on above: Order Comment: Speci men Type: BLOOD SPECIMEN Performed By: #### 2 4321-2, 2776-, ####[facility] LABORATORYCLIA [id number] [place] [address] [place] CO2 [Moles/Vol] 30 mmol/L Normal 22-30 [facility] Comment on above: Order Comment: Speci men Type: BLOOD SPECIMEN Performed By: #### 2 4321-2, 2776-, ####[facility]ORATORYCLIA [id number] [place] [address] [place] Creatinine [Mass/Vol] 0.78 mg/dL Normal 0.73-1.22 [facility] Comment on above: Order Comment: Speci men Type: BLOOD SPECIMEN Performed By: #### 2 4321-2, 2777-, ####[facility] LABORATORYCLIA [id number] [place] [address] [place] GFR/1.73 sq M.predicted MDRD (S/P/Bld) [Vol rate/Area] mL/min/{1.73_m2} Normal [facility] Comment on above: [...] GFR. Performed By: #### 2 4321-2, 2777-, ####[facility] LABORATORYCLIA [id number] [place] [address] [place] Glucose [Mass/Vol] 132 mg/dL High 74-99 [facility] Comment on above: Order Comment: Speci men Type: BLOOD SPECIMEN Result Comment: The [place] [employer] (ADA) provides guidance for cutoff [...] Standards of Medical Care in Diabetes 2016, [place] [employer]. Diabetes Care. 2016.39(Suppl 1). Performed By: #### 2 4321-2, 2777-1, ####[facility] LABORATORYCLIA [id number] [place], [place] [address] [place] [address] [place] [facility] Potassium [Moles/Vol] 3.7 mmol/L Normal 3.7-5.1 [facility] Comment on above: Order Comment: Speci men Type: BLOOD SPECIMEN Performed By: #### 2 4321-2, 277-, ####[facility] LABORATORYCLIA [id number] [place], [place] [id number] [place] [address] [place] [facility] Sodium [Moles/Vol] 159 mmol/L High 136-144 [facility] Comment on above: Order Comment: Speci men Type: BLOOD SPECIMEN Performed By: #### 2 4321-2, 2776-, ####[facility] LABORATORYCLIA [id number] [address] STATES [facility] Urea nitrogen [Mass/Vol] 35 mg/dL High 9-24 [facility] Comment on above: Order Comment: Speci men Type: BLOOD SPECIMEN Performed By: #### 2 4321-2, 2776-05, ####[facility] LABORATORYCLIA [id number] [address] CASE MANAGEMon 06-14-2021 CASE MANAGEM Normal [facility] CBC panel Auto (Bld)on 06-14 Erythrocyte distribution width (RBC) [Ratio] 16.2 % High 11.5-15.0 [facility] Comment on above: Order Comment: Speci men Type: BLOOD SPECIMEN Performed By: #### 5 8410-2 ####[facility] LABORATORYCLIA [id number] [address] Hematocrit (Bld) [Volume fraction] 35.2 % Low 39.0-51.0 [facility] Comment on above: Order Comment: Speci men Type: BLOOD SPECIMEN Performed By: #### 5 8410-2 ####[facility] LABORATORYCLIA [id number] [address] Hemoglobin (Bld) [Mass/Vol] 10.1 g/dL Low 13.0-17.0 [facility] Comment on above: Order Comment: Speci men Type: BLOOD SPECIMEN Performed By: #### 5 8410-2 ####[facility] LABORATORYCLIA [id number] [address] MCH (RBC) [Entitic mass] 27.2 pg Normal 26.0-34.0 [facility] Comment on above: Order Comment: Speci men Type: BLOOD SPECIMEN Performed By: #### 5 8410-2 ####[facility] LABORATORYCLIA [id number] [address] MCHC (RBC) [Mass/Vol] 28.7 g/dL Low 30.5-36.0 [facility] Comment on above: Order Comment: Speci men Type: BLOOD SPECIMEN Performed By: #### 5 8410-2 ####[facility] LABORATORYCLIA [id number] [address] MCV (RBC) [Entitic vol] 94.6 fL Normal 80.0-100.0 [facility] Comment on above: Order Comment: Speci men Type: BLOOD SPECIMEN Performed By: #### 5 8410-2 ####[facility] LABORATORYCLIA [id number] [address] Nucleated RBC (Bld) [#/Vol] 10*3/uL Normal <0.01 [facility] Comment on above: Order Comment: Speci men Type: BLOOD SPECIMEN Performed By: #### 5 8410-2 ####[facility] LABORATORYCLIA [id number] [address] Platelet mean volume (Bld) [Entitic vol] 11.0 fL Normal 9.0-12.7 [facility] Comment on above: Order Comment: Speci men Type: BLOOD SPECIMEN Performed By: #### 5 8410-2 ####[facility] LABORATORYCLIA [id number] [place] [address] [facility] Platelets (Bld) [#/Vol] 287 10*3/uL Normal 150-400 [facility] Comment on above: Order Comment: Speci men Type: BLOOD SPECIMEN Performed By: #### 5 8410-2 ####[facility] LABORATORYCLIA [id number] [place] [id number] [facility] RBC (Bld) [#/Vol] 3.72 10*6/uL Low 4.20-6.00 [facility] Comment on above: Order Comment: Speci men Type: BLOOD SPECIMEN Performed By: #### 5 8410-2 ####[facility] LABORATORYCLIA [id number] [address] WBC (Bld) [#/Vol] 12.23 10*3/uL High 3.70-11.00 [facility] Comment on above: Order Comment: Speci men Type: BLOOD SPECIMEN Performed By: #### 5 8410-2 ####[facility] LABORATORYCLIA [id number] [address] Comprehensive metabolic 2000 panelon 06-14-2021 Albumin [Mass/Vol] 3.1 g/dL Low 3.9-4.9 [facility] Comment on above: Order Comment: Speci men Type: BLOOD SPECIMEN Performed By: #### 2 4323-8, HSTNT, 2776-05, ####[facility] LABORATORYCLIA [id number] [address] ALP [Catalytic activity/Vol] 72 U/L Normal 38-113 [facility] Comment on above: Order Comment: Speci men Type: BLOOD SPECIMEN Performed By: #### 2 4323-8, HSTNT, 2776-05, ####[facility] LABORATORYCLIA [id number] [address] ALT With P-5'-P [Catalytic activity/Vol] 57 U/L High 10-54 [facility] Comment on above: Order Comment: Speci men Type: BLOOD SPECIMEN Performed By: #### 2 4323-8, HSTNT, 2776-05, ####[facility] LABORATORYCLIA [id number] [place], [place] [address] [place] [address] [place] Anion gap [Moles/Vol] 9 mmol/L Normal 9-18 [facility] Comment on above: Order Comment: Speci men Type: BLOOD SPECIMEN Performed By: #### 2 4323-8, HSTNT, 2776-05, ####[facility] LABORATORYCLIA [id number] [place], [place] [address] [place] [address] [place] [facility] AST With P-5'-P [Catalytic activity/Vol] 33 U/L Normal 14-40 [facility] Comment on above: Order Comment: Speci men Type: BLOOD SPECIMEN Performed By: #### 2 4323-8, HSTNT, 2776-05, ####[facility] LABORATORYCLIA [id number] [place], [place] [id number] [place] [address] [place] Bilirubin [Mass/Vol] 0.5 mg/dL Normal 0.2-1.3 [facility] Comment on above: Order Comment: Speci men Type: BLOOD SPECIMEN Performed By: #### 2 4323-8, HSTNT, 2776-05, ####[facility] LABORATORYCLIA [id number] [place], [place] [address] [place] [address] [place] [facility] Calcium [Mass/Vol] 8.8 mg/dL Normal 8.5-10.2 [facility] Comment on above: Order Comment: Speci men Type: BLOOD SPECIMEN Performed By: #### 2 4323-8, HSTNT, 2776-05, ####[facility] LABORATORYCLIA [id number] [place], [place] [address] [place] [address] [place] Chloride [Moles/Vol] 124 mmol/L High 97-105 [facility] Comment on above: Order Comment: Speci men Type: BLOOD SPECIMEN Performed By: #### 2 4323-8, HSTNT, 2776-05, ####[facility] LABORATORYCLIA [id number] [place], [place] [address] [place] [address] [place] [facility] CO2 [Moles/Vol] 29 mmol/L Normal 22-30 [facility] Comment on above: Order Comment: Speci men Type: BLOOD SPECIMEN Performed By: #### 2 4323-8, HSTNT, 2776-05, ####[facility] LABORATORYCLIA [id number] [address] [place] Creatinine [Mass/Vol] 0.73 mg/dL Normal 0.73-1.22 [facility] Comment on above: Order Comment: Speci men Type: BLOOD SPECIMEN Performed By: #### 2 4323-8, HSTNT, 2776-05, ####[facility] LABORATORYCLIA [id number] [address] [place] GFR/1.73 sq M.predicted MDRD (S/P/Bld) [Vol rate/Area] mL/min/{1.73_m2} Normal [facility] Comment on above: [...] Performed By: #### 2 4323-8, HSTNT, 2776-05, ####[facility] LABORATORYCLIA [id number] [place], [place] [id number] [place] [address] [place] Glucose [Mass/Vol] 137 mg/dL High 74-99 [facility] Comment on above: Order Comment: Speci men Type: BLOOD SPECIMEN Result Comment: The [place] [employer] (ADA) provides guidance for cutoff [...] Standards of Medical Care in Diabetes 2016, [place] [employer]. Diabetes Care. 2016.39(Suppl 1). Performed By: #### 2 4323-8, HSTNT, ####[facility] LABORATORYCLIA [id number] [place] [address] [place] Potassium [Moles/Vol] 3.6 mmol/L Low 3.7-5.1 [facility] Comment on above: Order Comment: Speci men Type: BLOOD SPECIMEN Performed By: #### 2 4323-8, HSTNT, ####[facility] LABORATORYCLIA [id number] [address] [place] [facility] Protein [Mass/Vol] 5.9 g/dL Low 6.3-8.0 [facility] Comment on above: Order Comment: Speci men Type: BLOOD SPECIMEN Performed By: #### 2 4323-8, HSTNT, ####[facility] LABORATORYCLIA [id number] [address] [place] Sodium [Moles/Vol] 162 mmol/L High 136-144 [facility] Comment on above: Order Comment: Speci men Type: BLOOD SPECIMEN Performed By: #### 2 4323-8, HSTNT, ####[facility] LABORATORYCLIA [id number] [address] [place] Urea nitrogen [Mass/Vol] 33 mg/dL High 9-24 [facility] Comment on above: Order Comment: Speci men Type: BLOOD SPECIMEN Performed By: #### 2 4323-8, HSTNT, 2776-05, ####[facility] LABORATORYCLIA [id number] [address] [place] HIGH SENSITIVITY TROPONIN To n 06-14-2021 HIGH SENSITIVITY TAMIKO 22 ng/L High <12 [facility] Comment on above: Order Comment: [...] day MACE. Performed By: #### H STNT ####[facility] LABORATORYCLIA [id number] [address] HIGH SENSITIVITY TAMIKO 22 ng/L High <12 [facility] Comment on above: Order Comment: [...] Performed By: #### 2 4323-8, HSTNT, 2776-05, ####[facility] LABORATORYCLIA [id number] [place] [address] [place] Magnesium SerPl-mCncon 06-14 Magnesium [Mass/Vol] 2.9 mg/dL High 1.7-2.3 [facility] Comment on above: Order Comment: Speci men Type: BLOOD SPECIMEN Performed By: #### 2 4323-8, HSTNT, 2776-05, ####[facility] LABORATORYCLIA [id number] [place] [address] [place] [facility] Magnesium [Mass/Vol] 3.0 mg/dL High 1.7-2.3 [facility] Comment on above: Order Comment: Speci men Type: BLOOD SPECIMEN Performed By: #### 2 4321-2, 2776-, ####[facility] LABORATORYCLIA [id number] [place] [address] [place] [facility] NURSING PROGon 06-14-2021 NURSING PROG Normal [facility] NUTRITIONon 06-14-2021 NUTRITION Normal [facility] Phosphate SerPl-mCncon 06-14 Phosphate [Mass/Vol] 2.4 mg/dL Low 2.7-4.8 [facility] Comment on above: Order Comment: Speci men Type: BLOOD SPECIMEN Performed By: #### 2 4323-8, HSTNT, 2776-05, ####[facility] LABORATORYCLIA [id number] [address] STATES [facility] Phosphate [Mass/Vol] 3.2 mg/dL Normal 2.7-4.8 [facility] Comment on above: Order Comment: Speci men Type: BLOOD SPECIMEN Performed By: #### 2 4321-2, 2776-05, ####[facility] LABORATORYCLIA [id number] [place], [place] [id number] [place] [address] [place] THERAPY NTon 06-14-2021 THERAPY NT Normal [facility] THERAPY NT Normal [facility] THERAPY NT Normal [facility] US DVT LOWER BILon US DVT LOWER RAINER Normal [facility] ALLIED HEALTHon 06-13-2021 ALLIED HEALTH Normal [facility] Basic metabolic 2000 panelon 06-13-2021 Anion gap [Moles/Vol] 7 mmol/L Low 9-18 [facility] Comment on above: Order Comment: Speci men Type: BLOOD SPECIMEN Performed By: #### 2 4321-2, 89900-3, 2776-05 ####[facility]ATORYCLIA [id number] [address] STATES OF [facility] Calcium [Mass/Vol] 8.8 mg/dL Normal 8.5-10.2 [facility] Comment on above: Order Comment: Speci men Type: BLOOD SPECIMEN Performed By: #### 2 4321-2, , 2776-05 ####[facility] LABORATORYCLIA [id number] [address] [place] Chloride [Moles/Vol] 120 mmol/L High 97-105 [facility] Comment on above: Order Comment: Speci men Type: BLOOD SPECIMEN Performed By: #### 2 4321-2, , 2776-05 ####[facility] LABORATORYCLIA [id number] [address] CO2 [Moles/Vol] 28 mmol/L Normal 22-30 [facility] Comment on above: Order Comment: Speci men Type: BLOOD SPECIMEN Performed By: #### 2 4321-2, , 2776-05 ####[facility] LABORATORYCLIA [id number] [address] STATES [place] Creatinine [Mass/Vol] 0.78 mg/dL Normal 0.73-1.22 [facility] Comment on above: Order Comment: Speci men Type: BLOOD SPECIMEN Performed By: #### 2 4321-2, , 2776-05 ####[facility] LABORATORYCLIA [id number] [place] [address] [place] GFR/1.73 sq M.predicted MDRD (S/P/Bld) [Vol rate/Area] mL/min/{1.73_m2} Normal [facility] Comment on above: [...] reflect actual GFR. Performed By: #### 2 1-2, , 2776-05 ####[facility] LABORATORYCLIA [id number] [place] [address] [place] Glucose [Mass/Vol] 126 mg/dL High 74-99 [facility] Comment on above: Order Comment: Speci men Type: BLOOD SPECIMEN Result Comment: The [place] Diabetes Association (ADA) provides guidance for cutoff [...] Standards of Medical Care in Diabetes 2016, [place] [employer]. Diabetes Care. 2016.39(Suppl 1). Performed By: #### 2 4320-2, , 2776-05 ####[facility] LABORATORYCLIA [id number] [place] [address] [place] Potassium [Moles/Vol] 3.6 mmol/L Low 3.7-5.1 [facility] Comment on above: Order Comment: Speci men Type: BLOOD SPECIMEN Performed By: #### 2 1-2, , 2776-05 ####[facility] LABORATORYCLIA [id number] [place] [address] [place] Sodium [Moles/Vol] 155 mmol/L High 136-144 [facility] Comment on above: Order Comment: Speci men Type: BLOOD SPECIMEN Performed By: #### 2 1-2, , 2776-05 ####[facility] LABORATORYCLIA [id number] [place] [address] [place] Urea nitrogen [Mass/Vol] 36 mg/dL High 9-24 [facility] Comment on above: Order Comment: Speci men Type: BLOOD SPECIMEN Performed By: #### 2 4321-2, , 2776-05 ####[facility] LABORATORYCLIA [id number] [place] [address] [place] Anion gap [Moles/Vol] 6 mmol/L Low 9-18 [facility] Comment on above: Order Comment: Speci men Type: BLOOD SPECIMEN Performed By: #### 2 4321-2, 2776-05, ####[facility]ORATORYCLIA [id number] [place] [address] [place] [facility] Calcium [Mass/Vol] 6.5 mg/dL Low 8.5-10.2 [facility] Comment on above: Order Comment: Speci men Type: BLOOD SPECIMEN Performed By: #### 2 4321-2, 2776-05, ####[facility]ORATORYCLIA [id number] [place] [address] [place] Chloride [Moles/Vol] 124 mmol/L High 97-105 [facility] Comment on above: Order Comment: Speci men Type: BLOOD SPECIMEN Performed By: #### 2 4321-2, 2776-05, ####[facility]ATORYCLIA [id number] [place] [address] [place] CO2 [Moles/Vol] 24 mmol/L Normal 22-30 [facility] Comment on above: Order Comment: Speci men Type: BLOOD SPECIMEN Performed By: #### 2 4321-2, 2776-05, ####[facility]ATORYCLIA [id number] [place] [address] [place] Creatinine [Mass/Vol] 0.61 mg/dL Low 0.73-1.22 [facility] Comment on above: Order Comment: Speci men Type: BLOOD SPECIMEN Performed By: #### 2 4320-2, 2777-, ####[facility] LABORATORYCLIA [id number] [place] [address] [place] GFR/1.73 sq M.predicted MDRD (S/P/Bld) [Vol rate/Area] mL/min/{1.73_m2} Normal [facility] Comment on above: [...] Performed By: #### 2 4321-2, 2777-, ####[facility]ITAL[facility] [id number] [place] [address] [place] Glucose [Mass/Vol] 100 mg/dL High 74-99 [facility] Comment on above: Order Comment: Speci men Type: BLOOD SPECIMEN Result Comment: The [place] Diabetes Association (ADA) provides guidance for cutoff [...] Standards of Medical Care in Diabetes 2016, [place] [employer]. Diabetes Care. 2016.39(Suppl 1). Performed By: #### 2 4321-2, 2777-, 03911-4 ####[facility] LABORATORYCLIA [id number] [place], [place] [address] [place] [address] STATES [place] [facility] Potassium [Moles/Vol] 2.7 mmol/L Low 3.7-5.1 [facility] Comment on above: Order Comment: Speci men Type: BLOOD SPECIMEN Performed By: #### 2 4321-2, 7-1, ####[facility] LABORATORYCLIA [id number] [place], [place] [address] [place] [address] STATES [facility] Sodium [Moles/Vol] 154 mmol/L High 136-144 [facility] Comment on above: Order Comment: Speci men Type: BLOOD SPECIMEN Performed By: #### 2 4321-2, 2776-, ####[facility] LABORATORYCLIA [id number] [address] Urea nitrogen [Mass/Vol] 29 mg/dL High 9-24 [facility] Comment on above: Order Comment: Speci men Type: BLOOD SPECIMEN Performed By: #### 2 4321-2, 2776-05, ####[facility] LABORATORYCLIA [id number] [address] STATES OF [facility] CASE MANAGEMon 06-13-2021 CASE MANAGEM Normal [facility] CBC panel Auto (Bld)on 06-13 Erythrocyte distribution width (RBC) [Ratio] 15.9 % High 11.5-15.0 [facility] Comment on above: Order Comment: Speci men Type: BLOOD SPECIMEN Performed By: #### 5 8410-2 ####[facility] LABORATORYCLIA [id number] [address] STATES [place] [facility] Hematocrit (Bld) [Volume fraction] 34.3 % Low 39.0-51.0 [facility] Comment on above: Order Comment: Speci men Type: BLOOD SPECIMEN Performed By: #### 5 8410-2 ####[facility] LABORATORYCLIA [id number] [address] [place] Hemoglobin (Bld) [Mass/Vol] 9.9 g/dL Low 13.0-17.0 [facility] Comment on above: Order Comment: Speci men Type: BLOOD SPECIMEN Performed By: #### 5 8410-2 ####[facility] LABORATORYCLIA [id number] [address] MCH (RBC) [Entitic mass] 27.3 pg Normal 26.0-34.0 [facility] Comment on above: Order Comment: Speci men Type: BLOOD SPECIMEN Performed By: #### 5 8410-2 ####[facility] LABORATORYCLIA [id number] [address] MCHC (RBC) [Mass/Vol] 28.9 g/dL Low 30.5-36.0 [facility] Comment on above: Order Comment: Speci men Type: BLOOD SPECIMEN Performed By: #### 5 8410-2 ####[facility] LABORATORYCLIA [id number] [address] MCV (RBC) [Entitic vol] 94.5 fL Normal 80.0-100.0 [facility] Comment on above: Order Comment: Speci men Type: BLOOD SPECIMEN Performed By: #### 5 8410-2 ####[facility] LABORATORYCLIA [id number] [address] Nucleated RBC (Bld) [#/Vol] 10*3/uL Normal <0.01 [facility] Comment on above: Order Comment: Speci men Type: BLOOD SPECIMEN Performed By: #### 5 8410-2 ####[facility] LABORATORYCLIA [id number] [address] Platelet mean volume (Bld) [Entitic vol] 11.3 fL Normal 9.0-12.7 [facility] Comment on above: Order Comment: Speci men Type: BLOOD SPECIMEN Performed By: #### 5 8410-2 ####[facility]ORATORYCLIA [id number] [address] Platelets (Bld) [#/Vol] 269 10*3/uL Normal 150-400 [facility] Comment on above: Order Comment: Speci men Type: BLOOD SPECIMEN Performed By: #### 5 8410-2 ####[facility]ORATORYCLIA [id number] [address] RBC (Bld) [#/Vol] 3.63 10*6/uL Low 4.20-6.00 [facility] Comment on above: Order Comment: Speci men Type: BLOOD SPECIMEN Performed By: #### 5 8410-2 ####[facility]ORATORYCLIA [id number] [address] WBC (Bld) [#/Vol] 12.77 10*3/uL High 3.70-11.00 [facility] Comment on above: Order Comment: Speci men Type: BLOOD SPECIMEN Performed By: #### 5 8410-2 ####[facility]ORATORYCLIA [id number] [address] Gas and Carbon monoxide pane l (BldV)on 06-13-2021 Base excess Calc (BldV) [Moles/Vol] 5.7 mmol/L High 0-2 [facility] Comment on above: Order Comment: Speci men Type: VENOUS BLOOD SPECIMEN Performed By: #### 2 4344-4 ####[facility] LABORATORYCLIA [id number] [address] Body temperature 99.5 [degF] Normal [facility] Comment on above: Order Comment: Speci men Type: VENOUS BLOOD SPECIMEN Performed By: #### 2 4344-4 ####[facility] LABORATORYCLIA [id number] [address] CALCIUM IONIZED, PH CORRECTED 1.24 mmol/L Normal 1.08-1.30 [facility] Comment on above: Order Comment: Speci men Type: VENOUS BLOOD SPECIMEN Performed By: #### 2 4344-4 ####[facility]ORATORYCLIA [id number] [address] Calcium.ionized (BldV) [Mass/Vol] 1.23 mmol/L Normal 1.08-1.30 [facility] Comment on above: Order Comment: Speci men Type: VENOUS BLOOD SPECIMEN Performed By: #### 2 4344-4 ####[facility]ORATORYCLIA [id number] [address] Carboxyhemoglobin (BldV) [Mass fraction] 1.2 % Normal 0.0-2.0 [facility] Comment on above: Order Comment: Speci men Type: VENOUS BLOOD SPECIMEN Result Comment: Carb oxyhemoglobin Reference Range for Smokers: 2.0-8.0% Performed By: #### 2 4344-4 ####[facility]ORATORYCLIA [id number] [address] CO2 (BldV) [Partial pressure] 48 mm[Hg] Normal 42-55 [facility] Comment on above: Order Comment: Speci men Type: VENOUS BLOOD SPECIMEN Performed By: #### 2 4344-4 ####[facility]ORATORYCLIA [id number] [address] CO2 [Moles/Vol] 28.2 mmol/L Normal 25-29 [facility] Comment on above: Order Comment: Speci men Type: VENOUS BLOOD SPECIMEN Performed By: #### 2 4344-4 ####[facility]ORATORYCLIA [id number] [address] CO2 adjusted to patient's actual temperature (BldV) [Partial pressure] 49 mmHg Normal 42-55 [facility] Comment on above: Order Comment: Speci men Type: VENOUS BLOOD SPECIMEN Performed By: #### 2 4344-4 ####[facility]ORATORYCLIA [id number] [address] Glucose [Mass/Vol] 131 mg/dL High 60-105 [facility] Comment on above: Order Comment: Speci men Type: VENOUS BLOOD SPECIMEN Performed By: #### 2 4344-4 ####[facility]ATORYCLIA [id number] [address] HCO3 (Bld) [Moles/Vol] 30.6 mmol/L High 24-28 [facility] Comment on above: Order Comment: Speci men Type: VENOUS BLOOD SPECIMEN Performed By: #### 2 4344-4 ####[facility]ORYCLIA [id number] [address] Hematocrit (Bld) [Volume fraction] 32.8 % Low 39.0-51.0 [facility] Comment on above: Order Comment: Speci men Type: VENOUS BLOOD SPECIMEN Performed By: #### 2 4344-4 ####[facility]ORYCLIA [id number] [address] Hemoglobin (Bld) [Mass/Vol] 10.6 g/dL Low 13.0-17.0 [facility] Comment on above: Order Comment: Speci men Type: VENOUS BLOOD SPECIMEN Performed By: #### 2 4344-4 ####[facility]ORYCLIA [id number] [address] LITERS 6 Liters/min Normal [facility] Comment on above: Order Comment: Speci men Type: VENOUS BLOOD SPECIMEN Performed By: #### 2 4344-4 ####[facility]ATORYCLIA [id number] [address] Methemoglobin (Bld) [Mass fraction] 1.0 % Normal 0.0-1.5 [facility] Comment on above: Order Comment: Speci men Type: VENOUS BLOOD SPECIMEN Performed By: #### 2 4344-4 ####[facility]ATORYCLIA [id number] [address] O2 THERAPY NC = Nasal Cannula Normal [facility] Comment on above: Order Comment: Speci men Type: VENOUS BLOOD SPECIMEN Performed By: #### 2 4344-4 ####[facility]ORATORYCLIA [id number] [address] [place] Oxygen (BldV) [Partial pressure] 42 mm[Hg] Normal 35-45 [facility] Comment on above: Order Comment: Speci men Type: VENOUS BLOOD SPECIMEN Performed By: #### 2 4344-4 ####[facility]ATORYCLIA [id number] [address] Oxygen adjusted to patient's actual temperature (BldV) [Partial pressure] 43.8 mmHg Normal 35-45 [facility] Comment on above: Order Comment: Speci men Type: VENOUS BLOOD SPECIMEN Performed By: #### 2 4344-4 ####[facility]ATORYCLIA [id number] [address] Oxygen saturation in Blood 76.7 % Normal 60-85 [facility] Comment on above: Order Comment: Speci men Type: VENOUS BLOOD SPECIMEN Performed By: #### 2 4344-4 ####[facility] LABORATORYCLIA [id number] [address] Oxyhemoglobin (BldV) [Mass fraction] 75 % Normal 60-85 [facility] Comment on above: Order Comment: Speci men Type: VENOUS BLOOD SPECIMEN Performed By: #### 2 4344-4 ####[facility]ORYCLIA [id number] [address] [place] pH (BldV) 7.42 [pH] Normal 7.32-7.42 [facility] Comment on above: Order Comment: Speci men Type: VENOUS BLOOD SPECIMEN Performed By: #### 2 4344-4 ####[facility]ORYCLIA [id number] [address] STATES [facility] pH adjusted to patient's actual temperature (BldV) 7.41 Normal 7.32-7.42 [facility] Comment on above: Order Comment: Speci men Type: VENOUS BLOOD SPECIMEN Performed By: #### 2 4344-4 ####[facility]ORYCLIA [id number] [address] [place] Potassium [Moles/Vol] 3.5 mmol/L Normal 3.5-5.0 [facility] Comment on above: Order Comment: Speci men Type: VENOUS BLOOD SPECIMEN Performed By: #### 2 4344-4 ####[facility] LABORATORYCLIA [id number] [address] OF [facility] Sodium [Moles/Vol] 157 mmol/L High 136-144 [facility] Comment on above: Order Comment: Speci men Type: VENOUS BLOOD SPECIMEN Performed By: #### 2 4344-4 ####[facility]ORYCLIA [id number] [address] [place] Magnesium SerPl-mCncon 06-13 Magnesium [Mass/Vol] 3.0 mg/dL High 1.7-2.3 [facility] Comment on above: Order Comment: Speci men Type: BLOOD SPECIMEN Performed By: #### 2 4321-2, , 2776-05 ####[facility]ORYCLIA [id number] [address] OF [facility] Magnesium [Mass/Vol] 2.2 mg/dL Normal 1.7-2.3 [facility] Comment on above: Order Comment: Speci men Type: BLOOD SPECIMEN Performed By: #### 2 4321-2, 2776-05, ####[facility]ORYCLIA [id number] [address] OF [facility] Phosphate SerPl-mCncon 06-13 Phosphate [Mass/Vol] 2.2 mg/dL Low 2.7-4.8 [facility] Comment on above: Order Comment: Speci men Type: BLOOD SPECIMEN Performed By: #### 2 4321-2, , 2776-05 ####[facility]ORYCLIA [id number] [address] [place] Phosphate [Mass/Vol] 1.8 mg/dL Low 2.7-4.8 [facility] Comment on above: Order Comment: Speci men Type: BLOOD SPECIMEN Performed By: #### 2 4321-2, 2776-05, ####[facility]ORYCLIA [id number] [place] [address] [place] XR CHEST 1V FRONTALon 2021 XR CHEST 1V FRONTAL Normal [facility] ALLIED HEALTHon 06-12-2021 ALLIED HEALTH Normal [facility] BRIEF OP NOTon 06-12-2021 BRIEF OP NOT Normal [facility] Bacteria Fld Culton 06-12-19 22 Bacteria identified Cx Nom (Body fld) CULTURE, BODY FLD: No growth 5 days GRAM STAIN: No organisms seen Moderate Polymorphonuclear leukocytes Normal [facility] Comment on above: Performed By: #### 6 11-4 ####[facility] LABORATORYCLIA [id number] [place] [address] [place] Basic metabolic 2000 panelon 06-12-2021 Anion gap [Moles/Vol] 6 mmol/L Low 9-18 [facility] Comment on above: Order Comment: Speci men Type: BLOOD SPECIMEN Performed By: #### 2 777-1, 17266-1, ####[facility]ORATORYCLIA [id number] [place] [address] [place] Calcium [Mass/Vol] 8.7 mg/dL Normal 8.5-10.2 [facility] Comment on above: Order Comment: Speci men Type: BLOOD SPECIMEN Performed By: #### 2 777-1, , ####[facility]ORATORYCLIA [id number] [place] [address] [place] Chloride [Moles/Vol] 118 mmol/L High 97-105 [facility] Comment on above: Order Comment: Speci men Type: BLOOD SPECIMEN Performed By: #### 2 777-1, 45688-3, ####[facility]ORATORYCLIA [id number] [place] [address] [place] CO2 [Moles/Vol] 28 mmol/L Normal 22-30 [facility] Comment on above: Order Comment: Speci men Type: BLOOD SPECIMEN Performed By: #### 2 777-1, 20654-2 ####[facility] LABORATORYCLIA [id number] [place] [address] [place] Creatinine [Mass/Vol] 0.77 mg/dL Normal 0.73-1.22 [facility] Comment on above: Order Comment: Speci men Type: BLOOD SPECIMEN Performed By: #### 2 777-1, 17845-6, ####[facility]ORATORYCLIA [id number] [place] [address] [place] GFR/1.73 sq M.predicted MDRD (S/P/Bld) [Vol rate/Area] mL/min/{1.73_m2} Normal [facility] Comment on above: [...] actual GFR. Performed By: #### 2 777-1, 75989-7, ####[facility] [id number] [place] [address] [place] Glucose [Mass/Vol] 116 mg/dL High 74-99 [facility] Comment on above: Order Comment: Speci men Type: BLOOD SPECIMEN Result Comment: The [place] [employer] (ADA) provides guidance for cutoff [...] Standards of Medical Care in Diabetes 2016, [place] [employer]. Diabetes Care. 2016.39(Suppl 1). Performed By: #### 2 777-1, 89779-9, ####[facility] LABORATORYCLIA [id number] [address] OF [facility] Potassium [Moles/Vol] 4.0 mmol/L Normal 3.7-5.1 [facility] Comment on above: Order Comment: Speci men Type: BLOOD SPECIMEN Performed By: #### 2 777-1, 67172-2, ####[facility]ORATORYCLIA [id number] [address] Sodium [Moles/Vol] 152 mmol/L High 136-144 [facility] Comment on above: Order Comment: Speci men Type: BLOOD SPECIMEN Performed By: #### 2 777-1, 50784-2, ####[facility]ORATORYCLIA [id number] [address] Urea nitrogen [Mass/Vol] 34 mg/dL High 9-24 [facility] Comment on above: Order Comment: Speci men Type: BLOOD SPECIMEN Performed By: #### 2 777-1, 62216-2, ####[facility]ORATORYCLIA [id number] [address] CBC panel Auto (Bld)on 06-12 Erythrocyte distribution width (RBC) [Ratio] 16.1 % High 11.5-15.0 [facility] Comment on above: Order Comment: Speci men Type: BLOOD SPECIMEN Performed By: #### 5 8410-2 ####[facility]ORATORYCLIA [id number] [address] Hematocrit (Bld) [Volume fraction] 32.8 % Low 39.0-51.0 [facility] Comment on above: Order Comment: Speci men Type: BLOOD SPECIMEN Performed By: #### 5 8410-2 ####[facility]ORATORYCLIA [id number] [address] Hemoglobin (Bld) [Mass/Vol] 9.9 g/dL Low 13.0-17.0 [facility] Comment on above: Order Comment: Speci men Type: BLOOD SPECIMEN Performed By: #### 5 8410-2 ####[facility]ORATORYCLIA [id number] [address] MCH (RBC) [Entitic mass] 28.4 pg Normal 26.0-34.0 [facility] Comment on above: Order Comment: Speci men Type: BLOOD SPECIMEN Performed By: #### 5 8410-2 ####[facility]ORATORYCLIA [id number] [address] MCHC (RBC) [Mass/Vol] 30.2 g/dL Low 30.5-36.0 [facility] Comment on above: Order Comment: Speci men Type: BLOOD SPECIMEN Performed By: #### 5 8410-2 ####[facility]ORATORYCLIA [id number] [address] MCV (RBC) [Entitic vol] 94.3 fL Normal 80.0-100.0 [facility] Comment on above: Order Comment: Speci men Type: BLOOD SPECIMEN Performed By: #### 5 8410-2 ####[facility]ORATORYCLIA [id number] [address] Nucleated RBC (Bld) [#/Vol] 10*3/uL Normal <0.01 [facility] Comment on above: Order Comment: Speci men Type: BLOOD SPECIMEN Performed By: #### 5 8410-2 ####[facility]OR[facility]ORYCLIA [id number] [address] Platelet mean volume (Bld) [Entitic vol] 11.2 fL Normal 9.0-12.7 [facility] Comment on above: Order Comment: Speci men Type: BLOOD SPECIMEN Performed By: #### 5 8410-2 ####[facility]OR[facility]ORYCLIA [id number] [address] Platelets (Bld) [#/Vol] 218 10*3/uL Normal 150-400 [facility] Comment on above: Order Comment: Speci men Type: BLOOD SPECIMEN Performed By: #### 5 8410-2 ####[facility]OR[facility]ORYCLIA [id number] [address] RBC (Bld) [#/Vol] 3.48 10*6/uL Low 4.20-6.00 [facility] Comment on above: Order Comment: Speci men Type: BLOOD SPECIMEN Performed By: #### 5 8410-2 ####[facility] LABORATORYCLIA [id number] [address] WBC (Bld) [#/Vol] 13.33 10*3/uL High 3.70-11.00 [facility] Comment on above: Order Comment: Speci men Type: BLOOD SPECIMEN Performed By: #### 5 8410-2 ####[facility] LABORATORYCLIA [id number] [address] CONSULT PROGon 06-12-2021 CONSULT PROG Normal [facility] CT DRN PLACE PERIT/RETROP [place] BIon 06-12-[address] PERIT/RETROP FL BI Normal [facility] HISTORY PHYSICALon HISTORY PHYSICAL Normal [facility] Magnesium SerPl-mCncon 06-12 Magnesium [Mass/Vol] 2.7 mg/dL High 1.7-2.3 [facility] Comment on above: Order Comment: Speci men Type: BLOOD SPECIMEN Performed By: #### 2 777-1, 31189-8, 39119-1 ####[facility] LABORATORYCLIA [id number] [address] PT panel Coag (PPP)on 2021 INR Coag (PPP) [Relative time] 1.1 {INR} Normal 0.9-1.3 [facility] Comment on above: Order Comment: Speci men Type: BLOOD SPECIMEN Result Comment: Yris min K Antagonist (VKA) Therapeutic Range: INR 2 to 3 (Target INR of 2.5)Note: For patients treated with VKA drugs, such as warfarin, the [place] [employer] 2012 Guideline recommends [...] al. Chest 2012, 141:7S-47SNishmariangel RA, et al. [facility] 2017, 70: 252-289 Performed By: #### 3 4528-0 ####[facility] LABORATORYCLIA [id number] [place] [address] [place] PT Coag (PPP) [Time] 11.9 s Normal 9.7-13.0 [facility] Comment on above: Order Comment: Speci men Type: BLOOD SPECIMEN Performed By: #### 3 4528-0 ####[facility] LABORATORYCLIA [id number] [place] [address] [place] Phosphate SerPl-mCncon 06-12 Phosphate [Mass/Vol] 2.2 mg/dL Low 2.7-4.8 [facility] Comment on above: Order Comment: Speci men Type: BLOOD SPECIMEN Performed By: #### 2 777-1, 57224-1, 26667-5 ####[facility] LABORATORYCLIA [id number] [place] [address] [place] XR ABDOMEN 1V SUPINEon 06-12 XR ABDOMEN 1V SUPINE Normal [facility] ALLIED HEALTHon 06-11-2021 ALLIED HEALTH Normal [facility] Bacteria Bld Culton 06-11-19 22 Bacteria identified Cx Nom (Bld) CULTURE, BLOOD: No growth 5 days Normal [facility] Comment on above: Performed By: #### 6 00-7 ####[facility] LABORATORYCLIA [id number] [address] Bacteria identified Cx Nom (Bld) CULTURE, BLOOD: No growth 5 days Normal [facility] Comment on above: Performed By: #### 6 00-7 ####[facility] LABORATORYCLIA [id number] [address] Bacteria Ur Culton 2 Bacteria identified Cx Nom (U) CULTURE, URINE: No growth (<1,000 CFU/ml) Normal [facility] Comment on above: Performed By: #### 6 30-4 ####[facility] LABORATORYCLIA [id number] [address] [place] Basic metabolic 2000 panelon 06-11-2021 Anion gap [Moles/Vol] 9 mmol/L Normal 9-18 [facility] Comment on above: Order Comment: Speci men Type: BLOOD SPECIMEN Performed By: #### 1 9123-9, 7-1, 89575-5 ####[facility] LABORATORYCLIA [id number] [address] [place] Calcium [Mass/Vol] 8.5 mg/dL Normal 8.5-10.2 [facility] Comment on above: Order Comment: Speci men Type: BLOOD SPECIMEN Performed By: #### 1 9123-9, 7-1, 33140-0 ####[facility] LABORATORYCLIA [id number] [address] [place] Chloride [Moles/Vol] 118 mmol/L High 97-105 [facility] Comment on above: Order Comment: Speci men Type: BLOOD SPECIMEN Performed By: #### 1 9123-9, 2777-1, 60469-6 ####[facility] LABORATORYCLIA [id number] [address] CO2 [Moles/Vol] 27 mmol/L Normal 22-30 [facility] Comment on above: Order Comment: Speci men Type: BLOOD SPECIMEN Performed By: #### 1 9123-9, 2777-, 44880-7 ####[facility] LABORATORYCLIA [id number] [address] [place] [facility] Creatinine [Mass/Vol] 0.75 mg/dL Normal 0.73-1.22 [facility] Comment on above: Order Comment: Speci men Type: BLOOD SPECIMEN Performed By: #### 1 9123-9, 2777, 88241-5 ####[facility] LABORATORYCLIA [id number] [address] GFR/1.73 sq M.predicted MDRD (S/P/Bld) [Vol rate/Area] mL/min/{1.73_m2} Normal [facility] Comment on above: [...] GFR. Performed By: #### 1 9123-9, 2777, 56553-2 ####[facility] LABORATORYCLIA [id number] [address] [place] [facility] Glucose [Mass/Vol] 142 mg/dL High 74-99 [facility] Comment on above: Order Comment: Speci men Type: BLOOD SPECIMEN Result Comment: The [place] [employer] (ADA) provides guidance for cutoff [...] Standards of Medical Care in Diabetes 2016, [place] [employer]. Diabetes Care. 2016.39(Suppl 1). Performed By: #### 1 9123-9, 2776-, 46941-0 ####[facility] LABORATORYCLIA [id number] [address] [place] [facility] Potassium [Moles/Vol] 3.6 mmol/L Low 3.7-5.1 [facility] Comment on above: Order Comment: Speci men Type: BLOOD SPECIMEN Performed By: #### 1 9123-9, 2776-05, 34068-4 ####[facility] SERVICESCLIA [id number] [address] Sodium [Moles/Vol] 154 mmol/L High 136-144 [facility] Comment on above: Order Comment: Speci men Type: BLOOD SPECIMEN Performed By: #### 1 9123-9, 2776-05, ####[facility] LABORATORYCLIA [id number] [address] Urea nitrogen [Mass/Vol] 31 mg/dL High 9-24 [facility] Comment on above: Order Comment: Speci men Type: BLOOD SPECIMEN Performed By: #### 1 9123-9, 27711-04, 59024-6 ####[facility] LABORATORYCLIA [id number] [address] C diff Tox gens Stl Ql MEGAN+p robeon 06-11-2021 C. difficile toxin genes MEGAN+probe Ql (Stl) Negative Normal Negative for C. difficile toxin by PCR [facility] Comment on above: Order Comment: Speci men Type: STOOL SPECIMEN Performed By: #### 5 4067-4 ####[facility] SERVICESCLIA [id number] [address] CBC W Auto Differential pane l (Bld)on 06-11-2021 Basophils (Bld) [#/Vol] 0.03 10*3/uL Normal <0.11 [facility] Comment on above: Order Comment: Speci men Type: BLOOD SPECIMEN Performed By: #### 5 7021-8 ####[facility]ORATORYCLIA [id number] [address] Basophils/100 WBC (Bld) 0.2 % Normal [facility] Comment on above: Order Comment: Speci men Type: BLOOD SPECIMEN Performed By: #### 5 7021-8 ####[facility] LABORATORYCLIA [id number] [address] Differential cell count method Nom (Bld) Auto Normal [facility] Comment on above: Order Comment: Speci men Type: BLOOD SPECIMEN Performed By: #### 5 7021-8 ####[facility]ORATORYCLIA [id number] [address] [place] [facility] Eosinophils (Bld) [#/Vol] 0.19 10*3/uL Normal <0.46 [facility] Comment on above: Order Comment: Speci men Type: BLOOD SPECIMEN Performed By: #### 5 7021-8 ####[facility] LABORATORYCLIA [id number] [address] Eosinophils/100 WBC (Bld) 1.5 % Normal [facility] Comment on above: Order Comment: Speci men Type: BLOOD SPECIMEN Performed By: #### 5 7021-8 ####[facility]ORATORYCLIA [id number] [address] Erythrocyte distribution width (RBC) [Ratio] 16.3 % High 11.5-15.0 [facility] Comment on above: Order Comment: Speci men Type: BLOOD SPECIMEN Performed By: #### 5 7021-8 ####[facility]ORATORYCLIA [id number] [address] Hematocrit (Bld) [Volume fraction] 32.1 % Low 39.0-51.0 [facility] Comment on above: Order Comment: Speci men Type: BLOOD SPECIMEN Performed By: #### 5 7021-8 ####[facility] LABORATORYCLIA [id number] [address] Hemoglobin (Bld) [Mass/Vol] 9.3 g/dL Low 13.0-17.0 [facility] Comment on above: Order Comment: Speci men Type: BLOOD SPECIMEN Performed By: #### 5 7021-8 ####[facility] LABORATORYCLIA [id number] [address] IMMATURE GRAN % 0.6 % Normal [facility] Comment on above: Order Comment: Speci men Type: BLOOD SPECIMEN Performed By: #### 5 7021-8 ####[facility] LABORATORYCLIA [id number] [address] IMMATURE GRAN ABS 0.08 k/uL Normal <0.10 [facility] Comment on above: Order Comment: Speci men Type: BLOOD SPECIMEN Performed By: #### 5 7021-8 ####[facility] LABORATORYCLIA [id number] [address] Lymphocytes (Bld) [#/Vol] 1.65 10*3/uL Normal 1.00-4.00 [facility] Comment on above: Order Comment: Speci men Type: BLOOD SPECIMEN Performed By: #### 5 7021-8 ####[facility] LABORATORYCLIA [id number] [address] Lymphocytes/100 WBC (Bld) 12.8 % Normal [facility] Comment on above: Order Comment: Speci men Type: BLOOD SPECIMEN Performed By: #### 5 7021-8 ####[facility] LABORATORYCLIA [id number] [address] MCH (RBC) [Entitic mass] 27.2 pg Normal 26.0-34.0 [facility] Comment on above: Order Comment: Speci men Type: BLOOD SPECIMEN Performed By: #### 5 7021-8 ####[facility] LABORATORYCLIA [id number] [address] MCHC (RBC) [Mass/Vol] 29.0 g/dL Low 30.5-36.0 [facility] Comment on above: Order Comment: Speci men Type: BLOOD SPECIMEN Performed By: #### 5 7021-8 ####[facility]ORATORYCLIA [id number] [address] MCV (RBC) [Entitic vol] 93.9 fL Normal 80.0-100.0 [facility] Comment on above: Order Comment: Speci men Type: BLOOD SPECIMEN Performed By: #### 5 7021-8 ####[facility] LABORATORYCLIA [id number] [address] Monocytes (Bld) [#/Vol] 0.68 10*3/uL Normal <0.87 [facility] Comment on above: Order Comment: Speci men Type: BLOOD SPECIMEN Performed By: #### 5 7021-8 ####[facility] LABORATORYCLIA [id number] [address] Monocytes/100 WBC (Bld) 5.3 % Normal [facility] Comment on above: Order Comment: Speci men Type: BLOOD SPECIMEN Performed By: #### 5 7021-8 ####[facility]ATORYCLIA [id number] [address] Neutrophils (Bld) [#/Vol] 10.22 10*3/uL High 1.45-7.50 [facility] Comment on above: Order Comment: Speci men Type: BLOOD SPECIMEN Performed By: #### 5 7021-8 ####[facility]ATORYCLIA [id number] [address] Neutrophils/100 WBC (Bld) 79.6 % Normal [facility] Comment on above: Order Comment: Speci men Type: BLOOD SPECIMEN Performed By: #### 5 7021-8 ####[facility] LABORATORYCLIA [id number] [address] Nucleated RBC (Bld) [#/Vol] 10*3/uL Normal <0.01 [facility] Comment on above: Order Comment: Speci men Type: BLOOD SPECIMEN Performed By: #### 5 7021-8 ####[facility] LABORATORYCLIA [id number] [address] Nucleated RBC/100 WBC (Bld) [Ratio] 0.0 /100 WBC Normal 0.0 [facility] Comment on above: Order Comment: Speci men Type: BLOOD SPECIMEN Performed By: #### 5 7021-8 ####[facility] LABORATORYCLIA [id number] [address] Platelet mean volume (Bld) [Entitic vol] 11.1 fL Normal 9.0-12.7 [facility] Comment on above: Order Comment: Speci men Type: BLOOD SPECIMEN Performed By: #### 5 7021-8 ####[facility] LABORATORYCLIA [id number] [address] [facility] Platelets (Bld) [#/Vol] 188 10*3/uL Normal 150-400 [facility] Comment on above: Order Comment: Speci men Type: BLOOD SPECIMEN Performed By: #### 5 7021-8 ####[facility] LABORATORYCLIA [id number] [address] [place] RBC (Bld) [#/Vol] 3.42 10*6/uL Low 4.20-6.00 [facility] Comment on above: Order Comment: Speci men Type: BLOOD SPECIMEN Performed By: #### 5 7021-8 ####[facility]ORATORYCLIA [id number] [address] [place] WBC (Bld) [#/Vol] 12.85 10*3/uL High 3.70-11.00 [facility] Comment on above: Order Comment: Speci men Type: BLOOD SPECIMEN Performed By: #### 5 7021-8 ####[facility]ORATORYCLIA [id number] [address] CBC panel Auto (Bld)on 06-11 Erythrocyte distribution width (RBC) [Ratio] 16.2 % High 11.5-15.0 [facility] Comment on above: Order Comment: Speci men Type: BLOOD SPECIMEN Performed By: #### 5 8410-2 ####[facility] LABORATORYCLIA [id number] [address] Hematocrit (Bld) [Volume fraction] 34.5 % Low 39.0-51.0 [facility] Comment on above: Order Comment: Speci men Type: BLOOD SPECIMEN Performed By: #### 5 8410-2 ####[facility] LABORATORYCLIA [id number] [address] Hemoglobin (Bld) [Mass/Vol] 10.3 g/dL Low 13.0-17.0 [facility] Comment on above: Order Comment: Speci men Type: BLOOD SPECIMEN Performed By: #### 5 8410-2 ####[facility] LABORATORYCLIA [id number] [address] MCH (RBC) [Entitic mass] 28.1 pg Normal 26.0-34.0 [facility] Comment on above: Order Comment: Speci men Type: BLOOD SPECIMEN Performed By: #### 5 8410-2 ####[facility] LABORATORYCLIA [id number] [address] MCHC (RBC) [Mass/Vol] 29.9 g/dL Low 30.5-36.0 [facility] Comment on above: Order Comment: Speci men Type: BLOOD SPECIMEN Performed By: #### 5 8410-2 ####[facility] LABORATORYCLIA [id number] [address] MCV (RBC) [Entitic vol] 94.3 fL Normal 80.0-100.0 [facility] Comment on above: Order Comment: Speci men Type: BLOOD SPECIMEN Performed By: #### 5 8410-2 ####[facility] LABORATORYCLIA [id number] [address] Nucleated RBC (Bld) [#/Vol] 10*3/uL Normal <0.01 [facility] Comment on above: Order Comment: Speci men Type: BLOOD SPECIMEN Performed By: #### 5 8410-2 ####[facility] LABORATORYCLIA [id number] [address] Platelet mean volume (Bld) [Entitic vol] 10.9 fL Normal 9.0-12.7 [facility] Comment on above: Order Comment: Speci men Type: BLOOD SPECIMEN Performed By: #### 5 8410-2 ####[facility]ORATORYCLIA [id number] [address] Platelets (Bld) [#/Vol] 210 10*3/uL Normal 150-400 [facility] Comment on above: Order Comment: Speci men Type: BLOOD SPECIMEN Performed By: #### 5 8410-2 ####[facility] LABORATORYCLIA [id number] [address] RBC (Bld) [#/Vol] 3.66 10*6/uL Low 4.20-6.00 [facility] Comment on above: Order Comment: Speci men Type: BLOOD SPECIMEN Performed By: #### 5 8410-2 ####[facility] LABORATORYCLIA [id number] [address] WBC (Bld) [#/Vol] 13.03 10*3/uL High 3.70-11.00 [facility] Comment on above: Order Comment: Speci men Type: BLOOD SPECIMEN Performed By: #### 5 8410-2 ####[facility] LABORATORYCLIA [id number] [address] CONSULT PROGon 06-11-2021 CONSULT PROG Normal [facility] CONSULT PROG Normal [facility] CONSULT PROG Normal [facility] CT ABD/PEL W IVCONon 022 CT ABD/PEL W IVCON Invalid Interpretation Code [facility] Magnesium SerPl-mCncon 06-11 Magnesium [Mass/Vol] 2.7 mg/dL High 1.7-2.3 [facility] Comment on above: Order Comment: Speci men Type: BLOOD SPECIMEN Performed By: #### 1 9123-9, 2776-1, 02055-6 ####[facility] LABORATORYCLIA [id number] [address] [place] [facility] Phosphate SerPl-mCncon 06-11 Phosphate [Mass/Vol] 2.5 mg/dL Low 2.7-4.8 [facility] Comment on above: Order Comment: Speci men Type: BLOOD SPECIMEN Performed By: #### 1 9123-9, 2776-1, 38925-8 ####[facility]ORATORYCLIA [id number] [address] [place] Basic metabolic 2000 panelon 06-10-2021 Anion gap [Moles/Vol] 7 mmol/L Low 9-18 [facility] Comment on above: Order Comment: Speci men Type: BLOOD SPECIMEN Performed By: #### 2 777-1, 96014-1, , HFP ####[facility]ORATORYCLIA [id number] [place] [address] [place] Calcium [Mass/Vol] 8.5 mg/dL Normal 8.5-10.2 [facility] Comment on above: Order Comment: Speci men Type: BLOOD SPECIMEN Performed By: #### 2 777-1, 33733-4, , HFP ####[facility]ORATORYCLIA [id number] [place] [address] [place] Chloride [Moles/Vol] 118 mmol/L High 97-105 [facility] Comment on above: Order Comment: Speci men Type: BLOOD SPECIMEN Performed By: #### 2 777-1, 32399-2, , [facility] ####[facility] LABORATORYCLIA [id number] [place] [address] [place] [facility] CO2 [Moles/Vol] 26 mmol/L Normal 22-30 [facility] Comment on above: Order Comment: Speci men Type: BLOOD SPECIMEN Performed By: #### 2 777-1, 91615-3, , [facility] ####[facility] LABORATORYCLIA [id number] [place] [address] [place] Creatinine [Mass/Vol] 0.70 mg/dL Low 0.73-1.22 [facility] Comment on above: Order Comment: Speci men Type: BLOOD SPECIMEN Performed By: #### 2 777-1, , , [facility] ####[facility] LABORATORYCLIA [id number] [address] [place] GFR/1.73 sq M.predicted MDRD (S/P/Bld) [Vol rate/Area] mL/min/{1.73_m2} Normal [facility] Comment on above: [...] actual GFR. Performed By: #### 2 777-1, 61599-5, , [facility] ####[facility] LABORATORYCLIA [id number] [place] [address] [place] Glucose [Mass/Vol] 135 mg/dL High 74-99 [facility] Comment on above: Order Comment: Speci men Type: BLOOD SPECIMEN Result Comment: The [place] [employer] (ADA) provides guidance for cutoff [...] Standards of Medical Care in Diabetes 2016, [place] [employer]. Diabetes Care. 2016.39(Suppl 1). Performed By: #### 2 777-1, 80208-3, , [facility] ####[facility] LABORATORYCLIA [id number] [place] [address] [place] Potassium [Moles/Vol] 3.9 mmol/L Normal 3.7-5.1 [facility] Comment on above: Order Comment: Speci men Type: BLOOD SPECIMEN Performed By: #### 2 777-1, 93502-6, , [facility] ####[facility] LABORATORYCLIA [id number] [address] [place] [facility] Sodium [Moles/Vol] 151 mmol/L High 136-144 [facility] Comment on above: Order Comment: Speci men Type: BLOOD SPECIMEN Performed By: #### 2 777-1, , , [facility] ####[facility] LABORATORYCLIA [id number] [place] [address] [place] Urea nitrogen [Mass/Vol] 27 mg/dL High 9-24 [facility] Comment on above: Order Comment: Speci men Type: BLOOD SPECIMEN Performed By: #### 2 777-1, 44753-2, , [facility] ####[facility] LABORATORYCLIA [id number] [address] [place] CASE MANAGEMon 06-10-2021 CASE MANAGEM Normal [facility] CBC panel Auto (Bld)on 06-10 Erythrocyte distribution width (RBC) [Ratio] 16.2 % High 11.5-15.0 [facility] Comment on above: Order Comment: Speci men Type: BLOOD SPECIMEN Performed By: #### 5 8410-2 ####[facility] LABORATORYCLIA [id number] [address] Hematocrit (Bld) [Volume fraction] 34.8 % Low 39.0-51.0 [facility] Comment on above: Order Comment: Speci men Type: BLOOD SPECIMEN Performed By: #### 5 8410-2 ####[facility] LABORATORYCLIA [id number] [address] Hemoglobin (Bld) [Mass/Vol] 10.2 g/dL Low 13.0-17.0 [facility] Comment on above: Order Comment: Speci men Type: BLOOD SPECIMEN Performed By: #### 5 8410-2 ####[facility] LABORATORYCLIA [id number] [address] MCH (RBC) [Entitic mass] 27.1 pg Normal 26.0-34.0 [facility] Comment on above: Order Comment: Speci men Type: BLOOD SPECIMEN Performed By: #### 5 8410-2 ####[facility] LABORATORYCLIA [id number] [address] MCHC (RBC) [Mass/Vol] 29.3 g/dL Low 30.5-36.0 [facility] Comment on above: Order Comment: Speci men Type: BLOOD SPECIMEN Performed By: #### 5 8410-2 ####[facility] LABORATORYCLIA [id number] [address] MCV (RBC) [Entitic vol] 92.6 fL Normal 80.0-100.0 [facility] Comment on above: Order Comment: Speci men Type: BLOOD SPECIMEN Performed By: #### 5 8410-2 ####[facility] LABORATORYCLIA [id number] [address] Nucleated RBC (Bld) [#/Vol] 10*3/uL Normal <0.01 [facility] Comment on above: Order Comment: Speci men Type: BLOOD SPECIMEN Performed By: #### 5 8410-2 ####[facility]ORATORYCLIA [id number] [address] Platelet mean volume (Bld) [Entitic vol] 10.4 fL Normal 9.0-12.7 [facility] Comment on above: Order Comment: Speci men Type: BLOOD SPECIMEN Performed By: #### 5 8410-2 ####[facility] LABORATORYCLIA [id number] [address] Platelets (Bld) [#/Vol] 206 10*3/uL Normal 150-400 [facility] Comment on above: Order Comment: Speci men Type: BLOOD SPECIMEN Performed By: #### 5 8410-2 ####[facility] LABORATORYCLIA [id number] [address] RBC (Bld) [#/Vol] 3.76 10*6/uL Low 4.20-6.00 [facility] Comment on above: Order Comment: Speci men Type: BLOOD SPECIMEN Performed By: #### 5 8410-2 ####[facility] LABORATORYCLIA [id number] [address] WBC (Bld) [#/Vol] 11.36 10*3/uL High 3.70-11.00 [facility] Comment on above: Order Comment: Speci men Type: BLOOD SPECIMEN Performed By: #### 5 8410-2 ####[facility] LABORATORYCLIA [id number] [address] HEPATIC FUNCTION PNLon 06-10 Albumin [Mass/Vol] 3.1 g/dL Low 3.9-4.9 [facility] Comment on above: Order Comment: Speci men Type: BLOOD SPECIMEN Performed By: #### 2 777-1, 93866-6, , HFP ####[facility]ORATORYCLIA [id number] [place] [address] [place] [facility] ALP [Catalytic activity/Vol] 73 U/L Normal 38-113 [facility] Comment on above: Order Comment: Speci men Type: BLOOD SPECIMEN Performed By: #### 2 777-1, 99401-0, , HFP ####[facility]ORATORYCLIA [id number] [place] [address] [place] [facility] ALT With P-5'-P [Catalytic activity/Vol] 64 U/L High 10-54 [facility] Comment on above: Order Comment: Speci men Type: BLOOD SPECIMEN Performed By: #### 2 777-1, , , HFP ####[facility]ORATORYCLIA [id number] [place] [address] [facility] AST With P-5'-P [Catalytic activity/Vol] 44 U/L High 14-40 [facility] Comment on above: Order Comment: Speci men Type: BLOOD SPECIMEN Performed By: #### 2 777-1, , , HFP ####[facility]ORATORYCLIA [id number] [place], [place] [id number] [place] [address] Bilirubin [Mass/Vol] 0.5 mg/dL Normal 0.2-1.3 [facility] Comment on above: Order Comment: Speci men Type: BLOOD SPECIMEN Performed By: #### 2 777-1, , , HFP ####[facility]ORYCLIA [id number] [place] [address] [facility] Bilirubin.conjugated [Mass/Vol] mg/dL Normal <0.2 [facility] Comment on above: Order Comment: Speci men Type: BLOOD SPECIMEN Performed By: #### 2 777-1, 13961-9, , HFP ####[facility]ORYCLIA [id number] [place] [address] [place] Protein [Mass/Vol] 5.7 g/dL Low 6.3-8.0 [facility] Comment on above: Order Comment: Speci men Type: BLOOD SPECIMEN Performed By: #### 2 777-1, 62896-6, , [facility] ####[facility] LABORATORYCLIA [id number] [place] [address] [place] LEVETIRACETAMon 06-10-2021 levETIRAcetam [Mass/Vol] 57.7 ug/mL High 12.0-46.0 [facility] Comment on above: [...] developed and its performance characteristics determined by [facility] [place] ( [facility]). It has not been cleared or approved by the FDA. [facility] is regulated under CLIA as qualified to perform high complexity testing. This test is used for clinical purposes. It should not be regarded as investigational or for research. Performed By: #### L EVMIN ####[facility] REFERENCE LABCLIA [id number] [id number] [address] [place] Magnesium SerPl-mCncon 06-10 Magnesium [Mass/Vol] 2.7 mg/dL High 1.7-2.3 [facility] Comment on above: Order Comment: Speci men Type: BLOOD SPECIMEN Performed By: #### 2 777-1, 13438-3, , [facility] ####[facility] LABORATORYCLIA [id number] [place] [address] [place] Phosphate SerPl-mCncon 06-10 Phosphate [Mass/Vol] 1.8 mg/dL Low 2.7-4.8 [facility] Comment on above: Order Comment: Speci men Type: BLOOD SPECIMEN Performed By: #### 2 777-1, 03334-9, , HFP ####[facility]ORYCLIA [id number] [place] [address] [place] ALLIED HEALTHon 06-09-2021 ALLIED HEALTH Normal [facility] ALLIED HEALTH Normal [facility] ALLIED HEALTH Normal [facility] ALLIED HEALTH Normal [facility] Basic metabolic 2000 panelon 06-09-2021 Anion gap [Moles/Vol] 8 mmol/L Low 9-18 [facility] Comment on above: Order Comment: Speci men Type: BLOOD SPECIMEN Performed By: #### 2 4321-2, 27711-04, ####[facility]ORYCLIA [id number] [place] [address] [place] Calcium [Mass/Vol] 8.3 mg/dL Low 8.5-10.2 [facility] Comment on above: Order Comment: Speci men Type: BLOOD SPECIMEN Performed By: #### 2 4321-2, 2776-05, ####[facility]ORYCLIA [id number] [place] [address] [place] Chloride [Moles/Vol] 116 mmol/L High 97-105 [facility] Comment on above: Order Comment: Speci men Type: BLOOD SPECIMEN Performed By: #### 2 4321-2, 2776-05, ####[facility]ORYCLIA [id number] [place] [address] [place] CO2 [Moles/Vol] 27 mmol/L Normal 22-30 [facility] Comment on above: Order Comment: Speci men Type: BLOOD SPECIMEN Performed By: #### 2 4321-2, 2776-05, ####[facility]ORYCLIA [id number] [place] [address] [place] Creatinine [Mass/Vol] 0.70 mg/dL Low 0.73-1.22 [facility] Comment on above: Order Comment: Speci men Type: BLOOD SPECIMEN Performed By: #### 2 4321-2, 2777-1, 14352-4 ####[facility] LABORATORYCLIA [id number] [place] [id number] [place] GFR/1.73 sq M.predicted MDRD (S/P/Bld) [Vol rate/Area] mL/min/{1.73_m2} Normal [facility] Comment on above: [...] actual GFR. Performed By: #### 2 4321-2, 2777-1, 65795-4 ####[facility] LABORATORYCLIA [id number] [place] [id number] [place] Glucose [Mass/Vol] 123 mg/dL High 74-99 [facility] Comment on above: Order Comment: [facility] Type: BLOOD SPECIMEN Result Comment: The [place] [employer] (ADA) provides guidance for cutoff [...] Standards of Medical Care in Diabetes 2016, [place] [employer]. Diabetes Care. 2016.39(Suppl 1). Performed By: #### 2 4321-2, 2776-05, ####[facility]ATORYCLIA [id number] [place], [place] [address] [place] [address] STATES [facility] Potassium [Moles/Vol] 3.5 mmol/L Low 3.7-5.1 [facility] Comment on above: Order Comment: Speci men Type: BLOOD SPECIMEN Performed By: #### 2 4321-2, 2776-05, ####[facility]ATORYCLIA [id number] [address] Sodium [Moles/Vol] 151 mmol/L High 136-144 [facility] Comment on above: Order Comment: Speci men Type: BLOOD SPECIMEN Performed By: #### 2 4321-2, 2776-05, ####[facility] LABORATORYCLIA [id number] [address] Urea nitrogen [Mass/Vol] 39 mg/dL High 9-24 [facility] Comment on above: Order Comment: Speci men Type: BLOOD SPECIMEN Performed By: #### 2 4321-2, 2776-05, ####[facility]ORYCLIA [id number] [address] CBC panel Auto (Bld)on 06-09 Erythrocyte distribution width (RBC) [Ratio] 16.2 % High 11.5-15.0 [facility] Comment on above: Order Comment: Speci men Type: BLOOD SPECIMEN Performed By: #### 5 8410-2 ####[facility]ORYCLIA [id number] [address] Hematocrit (Bld) [Volume fraction] 33.7 % Low 39.0-51.0 [facility] Comment on above: Order Comment: Speci men Type: BLOOD SPECIMEN Performed By: #### 5 8410-2 ####[facility]ORYCLIA [id number] [address] Hemoglobin (Bld) [Mass/Vol] 10.2 g/dL Low 13.0-17.0 [facility] Comment on above: Order Comment: Speci men Type: BLOOD SPECIMEN Performed By: #### 5 8410-2 ####[facility] LABORATORYCLIA [id number] [address] MCH (RBC) [Entitic mass] 27.4 pg Normal 26.0-34.0 [facility] Comment on above: Order Comment: Speci men Type: BLOOD SPECIMEN Performed By: #### 5 8410-2 ####[facility] LABORATORYCLIA [id number] [address] MCHC (RBC) [Mass/Vol] 30.3 g/dL Low 30.5-36.0 [facility] Comment on above: Order Comment: Speci men Type: BLOOD SPECIMEN Performed By: #### 5 8410-2 ####[facility] LABORATORYCLIA [id number] [address] MCV (RBC) [Entitic vol] 90.6 fL Normal 80.0-100.0 [facility] Comment on above: Order Comment: Speci men Type: BLOOD SPECIMEN Performed By: #### 5 8410-2 ####[facility] LABORATORYCLIA [id number] [address] Nucleated RBC (Bld) [#/Vol] 10*3/uL Normal <0.01 [facility] Comment on above: Order Comment: Speci men Type: BLOOD SPECIMEN Performed By: #### 5 8410-2 ####[facility] LABORATORYCLIA [id number] [address] Platelet mean volume (Bld) [Entitic vol] 10.3 fL Normal 9.0-12.7 [facility] Comment on above: Order Comment: Speci men Type: BLOOD SPECIMEN Performed By: #### 5 8410-2 ####[facility] LABORATORYCLIA [id number] [address] Platelets (Bld) [#/Vol] 219 10*3/uL Normal 150-400 [facility] Comment on above: Order Comment: Speci men Type: BLOOD SPECIMEN Performed By: #### 5 8410-2 ####[facility] LABORATORYCLIA [id number] [address] RBC (Bld) [#/Vol] 3.72 10*6/uL Low 4.20-6.00 [facility] Comment on above: Order Comment: Speci men Type: BLOOD SPECIMEN Performed By: #### 5 8410-2 ####[facility] LABORATORYCLIA [id number] [address] WBC (Bld) [#/Vol] 13.02 10*3/uL High 3.70-11.00 [facility] Comment on above: Order Comment: Speci men Type: BLOOD SPECIMEN Performed By: #### 5 8410-2 ####[facility] LABORATORYCLIA [id number] [address] CONSULT PROGon 06-09-2021 CONSULT PROG Normal [facility] CONSULT PROG Normal [facility] CT BRAIN WO IVCONon 06-09-[address] BRAIN WO IVCON Normal [facility] Magnesium SerPl-mCncon 06-09 Magnesium [Mass/Vol] 2.8 mg/dL High 1.7-2.3 [facility] Comment on above: Order Comment: Speci men Type: BLOOD SPECIMEN Performed By: #### 2 4321-2, 2777-1, 77423-4 ####[facility] LABORATORYCLIA [id number] [address] [place] NURSING PROGon 06-09-2021 NURSING PROG Normal [facility] NUTRITIONon 06-09-2021 NUTRITION Normal [facility] PT EDon 06-09-2021 PT ED Normal [facility] Phosphate SerPl-mCncon 06-09 Phosphate [Mass/Vol] 2.2 mg/dL Low 2.7-4.8 [facility] Comment on above: Order Comment: Speci men Type: BLOOD SPECIMEN Performed By: #### 2 4321-2, 2777-1, 79785-4 ####[facility] LABORATORYCLIA [id number] [address] Vancomycin random [Mass/Vol] on 06-09-2021 Vancomycin [Mass/Vol] 18.9 ug/mL Normal 10.0-20.0 [facility] Comment on above: Order Comment: Speci men Type: BLOOD SPECIMEN Result Comment: Refe rence ranges and high/low indicator flags are provided as general guidelines only. The treating physician must determine appropriate target levels/dosing based on the specific clinical situation. Performed By: #### 4 091-5 ####[facility] LABORATORYCLIA [id number] [address] XR ABD 2V SUPINE W UPR/DECUB /CTLon 06-09-2021 XR ABD 2V SUPINE W UPR/DECUB/CTL Normal [facility] XR CHEST 1V FRONTALon 2021 XR CHEST 1V FRONTAL Normal [facility] XR NECK SOFT TISSUE 2V AP/LA Ton 06-09-2021 XR NECK SOFT TISSUE 2V AP/LAT Normal [facility] XR SKULL 2V AP/LATon 022 XR SKULL 2V AP/LAT Normal [facility] ALLIED HEALTHon 06-08-2021 ALLIED HEALTH Normal [facility] ANES POSTPROC EVALon 022 ANES POSTPROC EVAL Normal [facility] ANES PRE-OPon 06-08-2021 ANES PRE-OP Normal [facility] BRIEF OP NOTon 06-08-2021 BRIEF OP NOT Normal [facility] Bacteria Spec Anaerobe Culto n 06-08-2021 Bacteria identified Anaer cx Nom (Unsp spec) ORGANISM ID: 1 Rare Staphylococcus saccharolyticus Identification performed by [facility] Prim [employer] [facility]-Main See scanned document for susceptibility report Normal [facility] Comment on above: Performed By: #### 6 462-6, 635-3 ####[facility] LABORATORYCLIA [id number] [address] Bacteria Wnd Culton 06-08-19 22 Bacteria identified Cx Nom (Wound) CULTURE, INTRAOPERATIVE HARDWARE: No growth 5 days GRAM STAIN: Not performed on specimen type Normal [facility] Comment on above: Performed By: #### 6 462-6, 635-3 ####[facility]ORYCLIA [id number] [place] [address] [place] Basic metabolic 2000 panelon 06-08-2021 Anion gap [Moles/Vol] 9 mmol/L Normal 9-18 [facility] Comment on above: Order Comment: Speci men Type: BLOOD SPECIMEN Performed By: #### 2 4321-2, 7-1, ####[facility]ORYCLIA [id number] [place] [address] [place] Calcium [Mass/Vol] 8.7 mg/dL Normal 8.5-10.2 [facility] Comment on above: Order Comment: Speci men Type: BLOOD SPECIMEN Performed By: #### 2 4321-2, 2776-, ####[facility]ORYCLIA [id number] [place] [address] [place] Chloride [Moles/Vol] 113 mmol/L High 97-105 [facility] Comment on above: Order Comment: Speci men Type: BLOOD SPECIMEN Performed By: #### 2 4321-2, 2776-, ####[facility]ORYCLIA [id number] [place] [address] [place] CO2 [Moles/Vol] 26 mmol/L Normal 22-30 [facility] Comment on above: Order Comment: Speci men Type: BLOOD SPECIMEN Performed By: #### 2 4321-2, 2776-1, ####[facility]ORYCLIA [id number] [place] [address] [place] Creatinine [Mass/Vol] 0.68 mg/dL Low 0.73-1.22 [facility] Comment on above: Order Comment: Speci men Type: BLOOD SPECIMEN Performed By: #### 2 4321-2, 7-1, ####[facility] LABORATORYCLIA [id number] [place] [address] [place] GFR/1.73 sq M.predicted MDRD (S/P/Bld) [Vol rate/Area] mL/min/{1.73_m2} Normal [facility] Comment on above: [...] Performed By: #### 2 4321-2, 2777-, ####[facility]ITAL[facility] [id number] [place] [address] [place] Glucose [Mass/Vol] 146 mg/dL High 74-99 [facility] Comment on above: Order Comment: Speci men Type: BLOOD SPECIMEN Result Comment: The [place] Diabetes Association (ADA) provides guidance for cutoff [...] Standards of Medical Care in Diabetes 2016, [place] [employer]. Diabetes Care. 2016.39(Suppl 1). Performed By: #### 2 4321-2, 2777-, 71670-8 ####[facility] LABORATORYCLIA [id number] [place], [place] [address] [place] [address] [place] [facility] Potassium [Moles/Vol] 3.6 mmol/L Low 3.7-5.1 [facility] Comment on above: Order Comment: Speci men Type: BLOOD SPECIMEN Performed By: #### 2 4321-2, 277-1, ####[facility] LABORATORYCLIA [id number] [place], [place] [address] [place] [address] STATES [facility] Sodium [Moles/Vol] 148 mmol/L High 136-144 [facility] Comment on above: Order Comment: Speci men Type: BLOOD SPECIMEN Performed By: #### 2 4321-2, 277-, ####[facility] LABORATORYCLIA [id number] [address] Urea nitrogen [Mass/Vol] 36 mg/dL High 9-24 [facility] Comment on above: Order Comment: Speci men Type: BLOOD SPECIMEN Performed By: #### 2 4321-2, 2776-05, ####[facility] LABORATORYCLIA [id number] [address] OF [facility] CASE MANAGEMon 06-08-2021 CASE MANAGEM Normal [facility] CBC panel Auto (Bld)on 06-08 Erythrocyte distribution width (RBC) [Ratio] 16.0 % High 11.5-15.0 [facility] Comment on above: Order Comment: Speci men Type: BLOOD SPECIMEN Performed By: #### 5 8410-2 ####[facility] LABORATORYCLIA [id number] [address] Hematocrit (Bld) [Volume fraction] 38.4 % Low 39.0-51.0 [facility] Comment on above: Order Comment: Speci men Type: BLOOD SPECIMEN Performed By: #### 5 8410-2 ####[facility] LABORATORYCLIA [id number] [address] [place] Hemoglobin (Bld) [Mass/Vol] 12.1 g/dL Low 13.0-17.0 [facility] Comment on above: Order Comment: Speci men Type: BLOOD SPECIMEN Performed By: #### 5 8410-2 ####[facility] LABORATORYCLIA [id number] [address] MCH (RBC) [Entitic mass] 28.3 pg Normal 26.0-34.0 [facility] Comment on above: Order Comment: Speci men Type: BLOOD SPECIMEN Performed By: #### 5 8410-2 ####[facility] LABORATORYCLIA [id number] [address] MCHC (RBC) [Mass/Vol] 31.5 g/dL Normal 30.5-36.0 [facility] Comment on above: Order Comment: Speci men Type: BLOOD SPECIMEN Performed By: #### 5 8410-2 ####[facility] LABORATORYCLIA [id number] [address] MCV (RBC) [Entitic vol] 89.9 fL Normal 80.0-100.0 [facility] Comment on above: Order Comment: Speci men Type: BLOOD SPECIMEN Performed By: #### 5 8410-2 ####[facility] LABORATORYCLIA [id number] [address] Nucleated RBC (Bld) [#/Vol] 10*3/uL Normal <0.01 [facility] Comment on above: Order Comment: Speci men Type: BLOOD SPECIMEN Performed By: #### 5 8410-2 ####[facility] LABORATORYCLIA [id number] [address] Platelet mean volume (Bld) [Entitic vol] 10.3 fL Normal 9.0-12.7 [facility] Comment on above: Order Comment: Speci men Type: BLOOD SPECIMEN Performed By: #### 5 8410-2 ####[facility] LABORATORYCLIA [id number] [address] Platelets (Bld) [#/Vol] 236 10*3/uL Normal 150-400 [facility] Comment on above: Order Comment: Speci men Type: BLOOD SPECIMEN Performed By: #### 5 8410-2 ####[facility] LABORATORYCLIA [id number] [address] OF [facility] RBC (Bld) [#/Vol] 4.27 10*6/uL Normal 4.20-6.00 [facility] Comment on above: Order Comment: Speci men Type: BLOOD SPECIMEN Performed By: #### 5 8410-2 ####[facility] LABORATORYCLIA [id number] [address] STATES [facility] WBC (Bld) [#/Vol] 11.06 10*3/uL High 3.70-11.00 [facility] Comment on above: Order Comment: Speci men Type: BLOOD SPECIMEN Performed By: #### 5 8410-2 ####[facility] LABORATORYCLIA [id number] [address] CONSULT PROGon 06-08-2021 CONSULT PROG Normal [facility] CT BRAIN WO IVCONon 06-08-19 CT BRAIN WO IVCON Normal [facility] Magnesium SerPl-mCncon 06-08 Magnesium [Mass/Vol] 2.8 mg/dL High 1.7-2.3 [facility] Comment on above: Order Comment: Speci men Type: BLOOD SPECIMEN Performed By: #### 2 4321-2, 2777-1, 94370-3 ####[facility] LABORATORYCLIA [id number] [address] Microorganism Spec Culton Microorganism identified Cx Nom (Unsp spec) CULTURE, FUNGAL: No Fungus isolated after 28 days FUNGAL SMEAR: No fungus seen [facility] Comment on above: Performed By: #### 1 1475-1 ####[facility]ORYCLIA [id number] [address] NURSING PROGon 06-08-2021 NURSING PROG Normal [facility] OPERATIVE NOon 06-08-2021 OPERATIVE NO Normal [facility] OPERATIVE NO Normal [facility] PT panel Coag (PPP)on 2021 INR Coag (PPP) [Relative time] 1.1 {INR} Normal 0.9-1.3 [facility] Comment on above: Order Comment: Speci men Type: BLOOD SPECIMEN Result Comment: Yris min K Antagonist (VKA) Therapeutic Range: INR 2 to 3 (Target INR of 2.5)Note: For patients treated with VKA drugs, such as warfarin, the [place] [employer] 2012 Guideline recommends [...] al. Chest 2012, 141:7S-47SNishimpatricia RA, et al. [facility] 2017, 70: 252-289 Performed By: #### 3 4528-0, 03674-6 ####[facility] LABORATORYCLIA [id number] [place] [address] [place] PT Coag (PPP) [Time] 11.9 s Normal 9.7-13.0 [facility] Comment on above: Order Comment: Speci men Type: BLOOD SPECIMEN Performed By: #### 3 4528-0, 93221-2 ####[facility] LABORATORYCLIA [id number] [place] [address] [place] Phosphate SerPl-mCncon 06-08 Phosphate [Mass/Vol] 2.3 mg/dL Low 2.7-4.8 [facility] Comment on above: Order Comment: Speci men Type: BLOOD SPECIMEN Performed By: #### 2 4321-2, 2777-1, 10677-2 ####[facility] LABORATORYCLIA [id number] [address] aPTT PPPon 06-08-2021 aPTT Coag (PPP) [Time] 24.2 s Normal 23.0-32.4 [facility] Comment on above: Order Comment: Speci men Type: BLOOD SPECIMEN Performed By: #### 3 4528-0, 50029-1 ####[facility] LABORATORYCLIA [id number] [address] ALLIED HEALTHon 06-07-2021 ALLIED HEALTH Normal [facility] ALLIED HEALTH Normal [facility] ALLIED HEALTH Normal [facility] Bacteria CSF Culton 06-07-19 22 Bacteria identified Cx Nom (CSF) CULTURE, CSF: No growth 14 days GRAM STAIN: No organisms seen Rare Mononuclear cells Rare Polymorphonuclear leukocytes Gram stain performed on cytospun specimen. Normal [facility] Comment on above: Performed By: #### 6 06-4 ####[facility] LABORATORYCLIA [id number] [address] Basic metabolic 2000 panelon 06-07-2021 Anion gap [Moles/Vol] 9 mmol/L Normal 9-18 [facility] Comment on above: Order Comment: Speci men Type: BLOOD SPECIMEN Performed By: #### 1 9123-9, 2777-1, 12158-7 ####[facility] LABORATORYCLIA [id number] [address] STATES OF [facility] Calcium [Mass/Vol] 8.8 mg/dL Normal 8.5-10.2 [facility] Comment on above: Order Comment: Speci men Type: BLOOD SPECIMEN Performed By: #### 1 9123-9, 2777-1, 41153-2 ####[facility] LABORATORYCLIA [id number] [address] Chloride [Moles/Vol] 111 mmol/L High 97-105 [facility] Comment on above: Order Comment: Speci men Type: BLOOD SPECIMEN Performed By: #### 1 9123-9, 2777-1, 84111-8 ####[facility] LABORATORYCLIA [id number] [place] [address] [place] [facility] CO2 [Moles/Vol] 27 mmol/L Normal 22-30 [facility] Comment on above: Order Comment: Speci men Type: BLOOD SPECIMEN Performed By: #### 1 9123-9, 2777-1, 87413-2 ####[facility] LABORATORYCLIA [id number] [place] [id number] [place] Creatinine [Mass/Vol] 0.66 mg/dL Low 0.73-1.22 [facility] Comment on above: Order Comment: Speci men Type: BLOOD SPECIMEN Performed By: #### 1 9123-9, 7-, 49214-4 ####[facility] LABORATORYCLIA [id number] [address] [place] GFR/1.73 sq M.predicted MDRD (S/P/Bld) [Vol rate/Area] mL/min/{1.73_m2} Normal [facility] Comment on above: [...] GFR. Performed By: #### 1 9123-9, 2777-1, 43852-3 ####[facility] LABORATORYCLIA [id number] [place] [id number] [place] Glucose [Mass/Vol] 123 mg/dL High 74-99 [facility] Comment on above: Order Comment: Speci men Type: BLOOD SPECIMEN Result Comment: The [place] [employer] (ADA) provides guidance for cutoff [...] Standards of Medical Care in Diabetes 2016, [place] [employer]. Diabetes Care. 2016.39(Suppl 1). Performed By: #### 1 9123-9, 2777-, 03042-6 ####[facility] LABORATORYCLIA [id number] [address] Potassium [Moles/Vol] 3.6 mmol/L Low 3.7-5.1 [facility] Comment on above: Order Comment: Speci men Type: BLOOD SPECIMEN Performed By: #### 1 9123-9, 2776, 61658-4 ####[facility] LABORATORYCLIA [id number] [address] Sodium [Moles/Vol] 147 mmol/L High 136-144 [facility] Comment on above: Order Comment: Speci men Type: BLOOD SPECIMEN Performed By: #### 1 9123-9, 27711-04, 50981-5 ####[facility] LABORATORYCLIA [id number] [address] Urea nitrogen [Mass/Vol] 30 mg/dL High 9-24 [facility] Comment on above: Order Comment: Speci men Type: BLOOD SPECIMEN Performed By: #### 1 9123-9, 2777-, 34112-8 ####[facility] LABORATORYCLIA [id number] [address] CBC W Auto Differential pane l (Bld)on 06-07-2021 Basophils (Bld) [#/Vol] 10*3/uL Normal <0.11 [facility] Comment on above: Order Comment: Speci men Type: BLOOD SPECIMEN Performed By: #### 5 7021-8 ####[facility]ORATORYCLIA [id number] [address] Basophils/100 WBC (Bld) 0.2 % Normal [facility] Comment on above: Order Comment: Speci men Type: BLOOD SPECIMEN Performed By: #### 5 7021-8 ####[facility]ATORYCLIA [id number] [address] Differential cell count method Nom (Bld) Auto Normal [facility] Comment on above: Order Comment: Speci men Type: BLOOD SPECIMEN Performed By: #### 5 7021-8 ####[facility]ORYCLIA [id number] [address] Eosinophils (Bld) [#/Vol] 0.06 10*3/uL Normal <0.46 [facility] Comment on above: Order Comment: Speci men Type: BLOOD SPECIMEN Performed By: #### 5 7021-8 ####[facility]ORYCLIA [id number] [address] Eosinophils/100 WBC (Bld) 0.6 % Normal [facility] Comment on above: Order Comment: Speci men Type: BLOOD SPECIMEN Performed By: #### 5 7021-8 ####[facility]ATORYCLIA [id number] [address] [facility] Erythrocyte distribution width (RBC) [Ratio] 15.8 % High 11.5-15.0 [facility] Comment on above: Order Comment: Speci men Type: BLOOD SPECIMEN Performed By: #### 5 7021-8 ####[facility]ATORYCLIA [id number] [address] Hematocrit (Bld) [Volume fraction] 40.4 % Normal 39.0-51.0 [facility] Comment on above: Order Comment: Speci men Type: BLOOD SPECIMEN Performed By: #### 5 7021-8 ####[facility]ORYCLIA [id number] [address] Hemoglobin (Bld) [Mass/Vol] 12.4 g/dL Low 13.0-17.0 [facility] Comment on above: Order Comment: Speci men Type: BLOOD SPECIMEN Performed By: #### 5 7021-8 ####[facility] LABORATORYCLIA [id number] [address] IMMATURE GRAN % 0.7 % Normal [facility] Comment on above: Order Comment: Speci men Type: BLOOD SPECIMEN Performed By: #### 5 7021-8 ####[facility] LABORATORYCLIA [id number] [address] IMMATURE GRAN ABS 0.07 k/uL Normal <0.10 [facility] Comment on above: Order Comment: Speci men Type: BLOOD SPECIMEN Performed By: #### 5 7021-8 ####[facility] LABORATORYCLIA [id number] [address] Lymphocytes (Bld) [#/Vol] 1.43 10*3/uL Normal 1.00-4.00 [facility] Comment on above: Order Comment: Speci men Type: BLOOD SPECIMEN Performed By: #### 5 7021-8 ####[facility] LABORATORYCLIA [id number] [address] Lymphocytes/100 WBC (Bld) 14.1 % Normal [facility] Comment on above: Order Comment: Speci men Type: BLOOD SPECIMEN Performed By: #### 5 7021-8 ####[facility] LABORATORYCLIA [id number] [address] MCH (RBC) [Entitic mass] 27.6 pg Normal 26.0-34.0 [facility] Comment on above: Order Comment: Speci men Type: BLOOD SPECIMEN Performed By: #### 5 7021-8 ####[facility] LABORATORYCLIA [id number] [address] [place] MCHC (RBC) [Mass/Vol] 30.7 g/dL Normal 30.5-36.0 [facility] Comment on above: Order Comment: Speci men Type: BLOOD SPECIMEN Performed By: #### 5 7021-8 ####[facility] LABORATORYCLIA [id number] [address] MCV (RBC) [Entitic vol] 89.8 fL Normal 80.0-100.0 [facility] Comment on above: Order Comment: Speci men Type: BLOOD SPECIMEN Performed By: #### 5 7021-8 ####[facility] LABORATORYCLIA [id number] [address] Monocytes (Bld) [#/Vol] 0.82 10*3/uL Normal <0.87 [facility] Comment on above: Order Comment: Speci men Type: BLOOD SPECIMEN Performed By: #### 5 7021-8 ####[facility] LABORATORYCLIA [id number] [address] Monocytes/100 WBC (Bld) 8.1 % Normal [facility] Comment on above: Order Comment: Speci men Type: BLOOD SPECIMEN Performed By: #### 5 7021-8 ####[facility] LABORATORYCLIA [id number] [address] [place] Neutrophils (Bld) [#/Vol] 7.74 10*3/uL High 1.45-7.50 [facility] Comment on above: Order Comment: Speci men Type: BLOOD SPECIMEN Performed By: #### 5 7021-8 ####[facility] LABORATORYCLIA [id number] [address] Neutrophils/100 WBC (Bld) 76.3 % Normal [facility] Comment on above: Order Comment: Speci men Type: BLOOD SPECIMEN Performed By: #### 5 7021-8 ####[facility]ORYCLIA [id number] [address] [facility] Nucleated RBC (Bld) [#/Vol] 10*3/uL Normal <0.01 [facility] Comment on above: Order Comment: Speci men Type: BLOOD SPECIMEN Performed By: #### 5 7021-8 ####[facility] LABORATORYCLIA [id number] [address] Nucleated RBC/100 WBC (Bld) [Ratio] 0.0 /100 WBC Normal 0.0 [facility] Comment on above: Order Comment: Speci men Type: BLOOD SPECIMEN Performed By: #### 5 7021-8 ####[facility] LABORATORYCLIA [id number] [address] Platelet mean volume (Bld) [Entitic vol] 10.4 fL Normal 9.0-12.7 [facility] Comment on above: Order Comment: Speci men Type: BLOOD SPECIMEN Performed By: #### 5 7021-8 ####[facility] LABORATORYCLIA [id number] [address] Platelets (Bld) [#/Vol] 236 10*3/uL Normal 150-400 [facility] Comment on above: Order Comment: Speci men Type: BLOOD SPECIMEN Performed By: #### 5 7021-8 ####[facility] LABORATORYCLIA [id number] [address] RBC (Bld) [#/Vol] 4.50 10*6/uL Normal 4.20-6.00 [facility] Comment on above: Order Comment: Speci men Type: BLOOD SPECIMEN Performed By: #### 5 7021-8 ####[facility] LABORATORYCLIA [id number] [address] WBC (Bld) [#/Vol] 10.14 10*3/uL Normal 3.70-11.00 [facility] Comment on above: Order Comment: Speci men Type: BLOOD SPECIMEN Performed By: #### 5 7021-8 ####[facility] LABORATORYCLIA [id number] [address] CBC panel Auto (Bld)on 06-07 Erythrocyte distribution width (RBC) [Ratio] 15.8 % High 11.5-15.0 [facility] Comment on above: Order Comment: Speci men Type: BLOOD SPECIMEN Performed By: #### 5 8410-2 ####[facility] LABORATORYCLIA [id number] [address] Hematocrit (Bld) [Volume fraction] 40.0 % Normal 39.0-51.0 [facility] Comment on above: Order Comment: Speci men Type: BLOOD SPECIMEN Performed By: #### 5 8410-2 ####[facility] LABORATORYCLIA [id number] [address] Hemoglobin (Bld) [Mass/Vol] 12.3 g/dL Low 13.0-17.0 [facility] Comment on above: Order Comment: Speci men Type: BLOOD SPECIMEN Performed By: #### 5 8410-2 ####[facility] LABORATORYCLIA [id number] [address] MCH (RBC) [Entitic mass] 27.3 pg Normal 26.0-34.0 [facility] Comment on above: Order Comment: Speci men Type: BLOOD SPECIMEN Performed By: #### 5 8410-2 ####[facility] LABORATORYCLIA [id number] [address] MCHC (RBC) [Mass/Vol] 30.8 g/dL Normal 30.5-36.0 [facility] Comment on above: Order Comment: Speci men Type: BLOOD SPECIMEN Performed By: #### 5 8410-2 ####[facility] LABORATORYCLIA [id number] [address] MCV (RBC) [Entitic vol] 88.7 fL Normal 80.0-100.0 [facility] Comment on above: Order Comment: Speci men Type: BLOOD SPECIMEN Performed By: #### 5 8410-2 ####[facility] LABORATORYCLIA [id number] [address] Nucleated RBC (Bld) [#/Vol] 10*3/uL Normal <0.01 [facility] Comment on above: Order Comment: Speci men Type: BLOOD SPECIMEN Performed By: #### 5 8410-2 ####[facility] LABORATORYCLIA [id number] [address] Platelet mean volume (Bld) [Entitic vol] 10.0 fL Normal 9.0-12.7 [facility] Comment on above: Order Comment: Speci men Type: BLOOD SPECIMEN Performed By: #### 5 8410-2 ####[facility] LABORATORYCLIA [id number] [address] [facility] Platelets (Bld) [#/Vol] 234 10*3/uL Normal 150-400 [facility] Comment on above: Order Comment: Speci men Type: BLOOD SPECIMEN Performed By: #### 5 8410-2 ####[facility] LABORATORYCLIA [id number] [address] RBC (Bld) [#/Vol] 4.51 10*6/uL Normal 4.20-6.00 [facility] Comment on above: Order Comment: Speci men Type: BLOOD SPECIMEN Performed By: #### 5 8410-2 ####[facility] LABORATORYCLIA [id number] [address] WBC (Bld) [#/Vol] 11.47 10*3/uL High 3.70-11.00 [facility] Comment on above: Order Comment: Speci men Type: BLOOD SPECIMEN Performed By: #### 5 8410-2 ####[facility] LABORATORYCLIA [id number] [address] CONSULT PROGon 06-07-2021 CONSULT PROG Normal [facility] CONSULT PROG Normal [facility] CSF MANUAL DIFFon 06-07-2021 DIF TTL, CSF 92 cells counted Normal [facility] Comment on above: Order Comment: Speci men Type: CEREBROSPINAL FLUID Performed By: #### 3 4563-7, [id number], [id number] ####[facility] LABORATORYCLIA [id number] [place], [place] [id number] [place] [address] [place] EOSIN%, CSF 1 % Normal [facility] Comment on above: Order Comment: Speci men Type: CEREBROSPINAL FLUID Performed By: #### 3 4563-7, [id number], [id number] ####[facility]ORYCLIA [id number] [place], [place] [address] [place] [address] [place] LYMPH%, CSF 21 % Low 50-90 [facility] Comment on above: Order Comment: Speci men Type: CEREBROSPINAL FLUID Performed By: #### 3 4563-7, [id number], [id number] ####[facility]ORATORYCLIA [id number] [address] [place] MACRO%, CSF 27 % High <1 [facility] Comment on above: Order Comment: Speci men Type: CEREBROSPINAL FLUID Result Comment: Tati ected result: Previously reported as 22 % on 06/07/2021 at 1:49 PM EST. Performed By: #### 3 4563-7, [id number], [id number] ####[facility]ORATORYCLIA [id number] [place], [place] [id number] [place] [address] [place] MONO%, CSF 36 % Normal 10-50 [facility] Comment on above: Order Comment: Speci men Type: CEREBROSPINAL FLUID Performed By: #### 3 4563-7, [id number], [id number] ####[facility]ORYCLIA [id number] [place], [place] [id number] [place] [address] [place] NEUT%, CSF 11 % High 0-3 [facility] Comment on above: Order Comment: Speci men Type: CEREBROSPINAL FLUID Performed By: #### 3 4563-7, [id number], [id number] ####[facility]ORYCLIA [id number] [address] [place] OTHER CL%, CSF 4 % Normal [facility] Comment on above: Order Comment: Speci men Type: CEREBROSPINAL FLUID Result Comment: Path review to follow.Corrected result: Previously reported as 10 % on 06/07/2021 at 1:49 PM EST. Performed By: #### 3 4563-7, [id number], [id number] ####[facility] LABORATORYCLIA [id number] [address] CSF PATHOLOGIST INTERP (LAB REFLEX ORDER-NO BILL)on 06-07-2021 CSF STAFF REVIEW Negative for maligna nt cells. Rare immature myeloid or ventricular lining cells. Normal [facility] Comment on above: Order Comment: Speci men Type: CEREBROSPINAL FLUID Performed By: #### 3 4563-7, [id number], [id number] ####[facility]ATORYCLIA [id number] [address] Pathologist name Reviewed by Eloise rebolledo MD [facility] Comment on above: Order Comment: Speci men Type: CEREBROSPINAL FLUID Performed By: #### 3 4563-7, [id number], [id number] ####[facility] LABORATORYCLIA [id number] [address] BRAIN WO IVCONon 06-07-19 CT BRAIN WO IVCON Normal [facility] CT BRAIN WO IVCON Normal [facility] Cell count panel (CSF)on Clarity (CSF) Clear Normal Clear [facility] Comment on above: Order Comment: Speci men Type: CEREBROSPINAL FLUID Performed By: #### 3 4563-7, [id number], [id number] ####[facility] LABORATORYCLIA [id number] [address] Clarity (Unsp spec) Not Indicated Normal Clear [facility] Comment on above: Order Comment: Speci men Type: CEREBROSPINAL FLUID Performed By: #### 3 4563-7, [id number], [id number] ####[facility]ORYCLIA [id number] [address] Color (CSF) Colorless Normal Colorless [facility] Comment on above: Order Comment: Speci men Type: CEREBROSPINAL FLUID Performed By: #### 3 4563-7, [id number], [id number] ####[facility]ATORYCLIA [id number] [place] [address] Color (Spun CSF) Not Indicated Normal Colorless [facility] Comment on above: Order Comment: Speci men Type: CEREBROSPINAL FLUID Performed By: #### 3 4563-7, [id number], [id number] ####[facility] LABORATORYCLIA [id number] [address] CSF TUBE [employer]BER [employer] Normal [facility] Comment on above: Order Comment: Speci men Type: CEREBROSPINAL FLUID Performed By: #### 3 4563-7, [id number], [id number] ####[facility] LABORATORYCLIA [id number] [address] RBC Manual cnt (CSF) [#/Vol] 42 cells/uL High 0-5 [facility] Comment on above: Order Comment: Speci men Type: CEREBROSPINAL FLUID Performed By: #### 3 4563-7, [id number], [id number] ####[facility] LABORATORYCLIA [id number] [address] WBC Manual cnt (CSF) [#/Vol] 1 cells/uL Normal 0-5 [facility] Comment on above: Order Comment: Speci men Type: CEREBROSPINAL FLUID Performed By: #### 3 4563-7, [id number], [id number] ####[facility] LABORATORYCLIA [id number] [address] Glucose CSF-mCncon 2 Glucose (CSF) [Mass/Vol] 92 mg/dL High 40-70 [facility] Comment on above: Order Comment: Speci men Type: CEREBROSPINAL FLUID Result Comment: Lumb ar CSF glucose values of healthy patients are approximately 60% of the plasma values and must always be compared with a concurrently measured plasma value for adequate clinical interpretation.References: 1. Glucose HK (GLUC3) [package insert V 12.0 [place]]. [employer], [place], [place]. September 2015. 2. Michelle Moore, Loki HGarfield (2015). Chapter 7: Glucose and Lactate. FGarfield Alcocer al.(eds.), Cerebrospinal Fluid in Clinical Neurology. [place]: [employer]. Performed By: #### 2 880-3, 2342-4 ####[facility] LABORATORYCLIA [id number] [address] Lactate (Bld) [Moles/Vol]on 06-07-2021 Lactate [Moles/Vol] 0.9 mmol/L Normal 0.5-2.2 [facility] Comment on above: Order Comment: Speci men Type: BLOOD SPECIMEN Performed By: #### 3 2693-4 ####[facility] LABORATORYCLIA [id number] [address] [place] Lipase SerPl-cCncon 06-07-19 22 Lipase [Catalytic activity/Vol] 35 U/L Normal 16-61 [facility] Comment on above: Order Comment: Speci men Type: BLOOD SPECIMEN Performed By: #### 3 040-3, PROCAL ####[facility] LABORATORYCLIA [id number] [address] Magnesium SerPl-mCncon 06-07 Magnesium [Mass/Vol] 2.7 mg/dL High 1.7-2.3 [facility] Comment on above: Order Comment: Speci men Type: BLOOD SPECIMEN Performed By: #### 1 9123-9, 2777-1, 93239-6 ####[facility] LABORATORYCLIA [id number] [address] PROCALCITONIN (LAB)on 2021 Procalcitonin [Mass/Vol] 0.13 ng/mL High <0.09 [facility] Comment on above: Order Comment: Speci men Type: BLOOD SPECIMEN Result Comment: For a guided interpretation of test results, please visit the Change in Procalcitonin Calculator, [email or web address]. Performed By: #### 3 040-3, PROCAL ####[facility] LABORATORYCLIA [id number] [address] [place] Phosphate SerPl-mCncon 06-07 Phosphate [Mass/Vol] 1.9 mg/dL Low 2.7-4.8 [facility] Comment on above: Order Comment: Speci men Type: BLOOD SPECIMEN Performed By: #### 1 9123-9, 2777-1, 32281-5 ####[facility] LABORATORYCLIA [id number] [address] Prot CSF-mCncon 06-07-2021 Protein (CSF) [Mass/Vol] 33 mg/dL Normal 15-45 [facility] Comment on above: Order Comment: Speci men Type: CEREBROSPINAL FLUID Performed By: #### 2 880-3, 2342-4 ####[facility] LABORATORYCLIA [id number] [address] SARS-CoV-2 RNA Resp Ql MEGAN+p robeon 06-07-2021 SARS-CoV-2 (COVID-19) RNA MEGAN+probe Ql (Resp) COVID 19 RESULT: SARS-CoV-2 (Agent of COVID-19) Not Detected by PCR. This test has been authorized by FDA under an Emergency Use Authorization (EUA). Normal [facility] Comment on above: Performed By: #### 9 4500-6 ####[facility] LABORATORYCLIA [id number] [address] TYPE AND SCREENon 06-07-2021 ABO O Normal [facility] Comment on above: Order Comment: Speci men Type: BLOOD SPECIMEN Performed By: #### T SCR ####[facility] BLOOD BANKCLIA [id number] [address] HISTORICAL AB SCR STATUS Negative [facility] Comment on above: Order Comment: Speci men Type: BLOOD SPECIMEN Performed By: #### T SCR ####[facility] BLOOD BANKCLIA [id number] [address] Rh Nom (Bld) Positive Normal [facility] Comment on above: Order Comment: Speci men Type: BLOOD SPECIMEN Performed By: #### T SCR ####[facility] BLOOD BANKCLIA [id number] [address] TYPE AND SCREEN EXPIRATION 06/10/2021 23:59 Normal [facility] Comment on above: Order Comment: Speci men Type: BLOOD SPECIMEN Performed By: #### T SCR ####[facility] BLOOD BANKCLIA [id number] [address] Vancomycin random [Mass/Vol] on 06-07-2021 Vancomycin [Mass/Vol] 16.5 ug/mL Normal 10.0-20.0 [facility] Comment on above: Order Comment: Speci men Type: BLOOD SPECIMEN Result Comment: Refe rence ranges and high/low indicator flags are provided as general guidelines only. The treating physician must determine appropriate target levels/dosing based on the specific clinical situation. Performed By: #### 4 091-5 ####[facility] LABORATORYCLIA [id number] [address] XR CHEST 1V FRONTAL PORTon 0 06-07-2021 XR CHEST 1V FRONTAL PORT Normal [facility] Basic metabolic 2000 panelon 06-06-2021 Anion gap [Moles/Vol] 11 mmol/L Normal 9-18 [facility] Comment on above: Order Comment: Speci men Type: BLOOD SPECIMEN Performed By: #### 2 4321-2, , 2776-05 ####[facility] LABORATORYCLIA [id number] [address] Calcium [Mass/Vol] 8.6 mg/dL Normal 8.5-10.2 [facility] Comment on above: Order Comment: Speci men Type: BLOOD SPECIMEN Performed By: #### 2 4321-2, , 2776-05 ####[facility] LABORATORYCLIA [id number] [address] Chloride [Moles/Vol] 108 mmol/L High 97-105 [facility] Comment on above: Order Comment: Speci men Type: BLOOD SPECIMEN Performed By: #### 2 4321-2, , 2776-05 ####[facility] LABORATORYCLIA [id number] [place] [address] [place] CO2 [Moles/Vol] 25 mmol/L Normal 22-30 [facility] Comment on above: Order Comment: Speci men Type: BLOOD SPECIMEN Performed By: #### 2 4321-2, , 2776-05 ####[facility] LABORATORYCLIA [id number] [place] [id number] [place] Creatinine [Mass/Vol] 0.76 mg/dL Normal 0.73-1.22 [facility] Comment on above: Order Comment: Speci men Type: BLOOD SPECIMEN Performed By: #### 2 4321-2, , 2776-05 ####[facility] LABORATORYCLIA [id number] [address] [place] GFR/1.73 sq M.predicted MDRD (S/P/Bld) [Vol rate/Area] mL/min/{1.73_m2} Normal [facility] Comment on above: [...] Performed By: #### 2 4321-2, , 2776-05 ####[facility] LABORATORYCLIA [id number] [place] [id number] [place] Glucose [Mass/Vol] 116 mg/dL High 74-99 [facility] Comment on above: Order Comment: Speci men Type: BLOOD SPECIMEN Result Comment: The [place] Diabetes Association (ADA) provides guidance for cutoff [...] Standards of Medical Care in Diabetes 2016, [place] [employer]. Diabetes Care. 2016.39(Suppl 1). Performed By: #### 2 4321-2, , 2776-05 ####[facility] LABORATORYCLIA [id number] [address] STATES [facility] Potassium [Moles/Vol] 3.5 mmol/L Low 3.7-5.1 [facility] Comment on above: Order Comment: Speci men Type: BLOOD SPECIMEN Performed By: #### 2 4321-2, , 2776-05 ####[facility] LABORATORYCLIA [id number] [address] STATES [facility] Sodium [Moles/Vol] 144 mmol/L Normal 136-144 [facility] Comment on above: Order Comment: Speci men Type: BLOOD SPECIMEN Performed By: #### 2 4321-2, , 2776-05 ####[facility] LABORATORYCLIA [id number] [address] [place] [facility] Urea nitrogen [Mass/Vol] 31 mg/dL High 9-24 [facility] Comment on above: Order Comment: Speci men Type: BLOOD SPECIMEN Performed By: #### 2 4321-2, , 2776-05 ####[facility] LABORATORYCLIA [id number] [address] [place] CASE MANAGEMon 06-06-2021 CASE MANAGEM Normal [facility] CBC panel Auto (Bld)on 06-06 Erythrocyte distribution width (RBC) [Ratio] 15.8 % High 11.5-15.0 [facility] Comment on above: Order Comment: Speci men Type: BLOOD SPECIMEN Performed By: #### 5 8410-2 ####[facility] LABORATORYCLIA [id number] [address] Hematocrit (Bld) [Volume fraction] 39.5 % Normal 39.0-51.0 [facility] Comment on above: Order Comment: Speci men Type: BLOOD SPECIMEN Performed By: #### 5 8410-2 ####[facility] LABORATORYCLIA [id number] [address] Hemoglobin (Bld) [Mass/Vol] 12.2 g/dL Low 13.0-17.0 [facility] Comment on above: Order Comment: Speci men Type: BLOOD SPECIMEN Performed By: #### 5 8410-2 ####[facility] LABORATORYCLIA [id number] [address] MCH (RBC) [Entitic mass] 27.8 pg Normal 26.0-34.0 [facility] Comment on above: Order Comment: Speci men Type: BLOOD SPECIMEN Performed By: #### 5 8410-2 ####[facility] LABORATORYCLIA [id number] [address] MCHC (RBC) [Mass/Vol] 30.9 g/dL Normal 30.5-36.0 [facility] Comment on above: Order Comment: Speci men Type: BLOOD SPECIMEN Performed By: #### 5 8410-2 ####[facility] LABORATORYCLIA [id number] [address] MCV (RBC) [Entitic vol] 90.0 fL Normal 80.0-100.0 [facility] Comment on above: Order Comment: Speci men Type: BLOOD SPECIMEN Performed By: #### 5 8410-2 ####[facility] LABORATORYCLIA [id number] [address] Nucleated RBC (Bld) [#/Vol] 10*3/uL Normal <0.01 [facility] Comment on above: Order Comment: Speci men Type: BLOOD SPECIMEN Performed By: #### 5 8410-2 ####[facility] LABORATORYCLIA [id number] [address] Platelet mean volume (Bld) [Entitic vol] 10.4 fL Normal 9.0-12.7 [facility] Comment on above: Order Comment: Speci men Type: BLOOD SPECIMEN Performed By: #### 5 8410-2 ####[facility] LABORATORYCLIA [id number] [address] [facility] Platelets (Bld) [#/Vol] 236 10*3/uL Normal 150-400 [facility] Comment on above: Order Comment: Speci men Type: BLOOD SPECIMEN Performed By: #### 5 8410-2 ####[facility] LABORATORYCLIA [id number] [address] [facility] RBC (Bld) [#/Vol] 4.39 10*6/uL Normal 4.20-6.00 [facility] Comment on above: Order Comment: Speci men Type: BLOOD SPECIMEN Performed By: #### 5 8410-2 ####[facility] LABORATORYCLIA [id number] [address] WBC (Bld) [#/Vol] 9.74 10*3/uL Normal 3.70-11.00 [facility] Comment on above: Order Comment: Speci men Type: BLOOD SPECIMEN Performed By: #### 5 8410-2 ####[facility] LABORATORYCLIA [id number] [address] CONSULT PROGon 06-06-2021 CONSULT PROG Normal [facility] CONSULT PROG Normal [facility] Magnesium SerPl-mCncon 06-06 Magnesium [Mass/Vol] 2.5 mg/dL High 1.7-2.3 [facility] Comment on above: Order Comment: Speci men Type: BLOOD SPECIMEN Performed By: #### 2 4321-2, 76071-0, 2777-1 ####[facility] LABORATORYCLIA [id number] [place] [address] [place] PT panel Coag (PPP)on 2021 INR Coag (PPP) [Relative time] 1.0 {INR} Normal 0.9-1.3 [facility] Comment on above: Order Comment: Speci men Type: BLOOD SPECIMEN Result Comment: Yris min K Antagonist (VKA) Therapeutic Range: INR 2 to 3 (Target INR of 2.5)Note: For patients treated with VKA drugs, such as warfarin, the [place] [employer] 2012 Guideline recommends [...] 70: 252-289 Performed By: #### 3 4528-0, 20248-0 ####[facility] LABORATORYCLIA [id number] [place] [id number] [place] PT Coag (PPP) [Time] 11.4 s Normal 9.7-13.0 [facility] Comment on above: Order Comment: Speci men Type: BLOOD SPECIMEN Performed By: #### 3 4528-0, 81497-4 ####[facility] LABORATORYCLIA [id number] [place] [id number] [place] Phosphate SerPl-mCncon 06-06 Phosphate [Mass/Vol] 2.3 mg/dL Low 2.7-4.8 [facility] Comment on above: Order Comment: Speci men Type: BLOOD SPECIMEN Performed By: #### 2 4321-2, 50254-2, 2777-1 ####[facility] LABORATORYCLIA [id number] [address] THROMBOGRAPH HEPARINASE PANE Kiel 06-06-2021 Clot angle after addition of heparinase TEG (Bld) [Angle] 70.2 degrees Normal 47.0-74.0 [facility] Comment on above: Order Comment: Speci men Type: BLOOD SPECIMEN Performed By: #### T EGHPP ####[facility] LABORATORYCLIA [id number] [address] Clot Lysis 30 Min post maximum clot amplitude TEG (Bld) [Length fraction] 0.0 % Normal 0.0-8.0 [facility] Comment on above: Order Comment: Speci men Type: BLOOD SPECIMEN Performed By: #### T EGHPP ####[facility] LABORATORYCLIA [id number] [address] Clotting time after addition of heparinase TEG (Bld) 5.7 minutes Normal 4.0-10.0 [facility] Comment on above: Order Comment: Speci men Type: BLOOD SPECIMEN Performed By: #### T EGHPP ####[facility] LABORATORYCLIA [id number] [address] Coagulation index TEG Qn (Bld) 1.2 Normal -4.6-3.2 [facility] Comment on above: Order Comment: Speci men Type: BLOOD SPECIMEN Result Comment: The Coagulation Index, a secondary parameter, is labeled by the research intern as for research use only and is used per the research intern's instructions. Its performance characteristics were determined by [facility]'s [facility] [place] in a manner consistent with CLIA requirements. This test has not been cleared by the U.S. Food and Drug Administration. Performed By: #### T EGHPP ####[facility] LABORATORYCLIA [id number] [address] Maximum clot firmness after addition of heparinase TEG (Bld) [Length] 64.0 mm Normal 51.0-75.0 [facility] Comment on above: Order Comment: Speci men Type: BLOOD SPECIMEN Performed By: #### T EGHPP ####[facility] LABORATORYCLIA [id number] [address] Vancomycin random [Mass/Vol] on 06-06-2021 Vancomycin [Mass/Vol] 17.4 ug/mL Normal 10.0-20.0 [facility] Comment on above: Order Comment: Speci men Type: BLOOD SPECIMEN Result Comment: Refe rence ranges and high/low indicator flags are provided as general guidelines only. The treating physician must determine appropriate target levels/dosing based on the specific clinical situation. Performed By: #### 4 091-5 ####[facility] LABORATORYCLIA [id number] [address] Vancomycin [Mass/Vol] 13.5 ug/mL Normal 10.0-20.0 [facility] Comment on above: Order Comment: Speci men Type: BLOOD SPECIMEN Result Comment: Refe rence ranges and high/low indicator flags are provided as general guidelines only. The treating physician must determine appropriate target levels/dosing based on the specific clinical situation. Performed By: #### 4 091-5 ####[facility] LABORATORYCLIA [id number] [address] aPTT PPPon 06-06-2021 aPTT Coag (PPP) [Time] 27.8 s Normal 23.0-32.4 [facility] Comment on above: Order Comment: Speci men Type: BLOOD SPECIMEN Performed By: #### 3 4528-0, 40826-6 ####[facility] LABORATORYCLIA [id number] [address] Basic metabolic 2000 panelon 06-05-2021 Anion gap [Moles/Vol] 11 mmol/L Normal 9-18 [facility] Comment on above: Order Comment: Speci men Type: BLOOD SPECIMEN Performed By: #### 1 9123-9, 00093-5, 2777-1 ####[facility] LABORATORYCLIA [id number] [address] [facility] Calcium [Mass/Vol] 8.6 mg/dL Normal 8.5-10.2 [facility] Comment on above: Order Comment: Speci men Type: BLOOD SPECIMEN Performed By: #### 1 9123-9, 34021-7, 2776- ####[facility] LABORATORYCLIA [id number] [address] [place] Chloride [Moles/Vol] 108 mmol/L High 97-105 [facility] Comment on above: Order Comment: Speci men Type: BLOOD SPECIMEN Performed By: #### 1 9123-9, 22923-4, 2776- ####[facility] LABORATORYCLIA [id number] [address] CO2 [Moles/Vol] 25 mmol/L Normal 22-30 [facility] Comment on above: Order Comment: Speci men Type: BLOOD SPECIMEN Performed By: #### 1 9123-9, 04707-2, 2776- ####[facility] LABORATORYCLIA [id number] [address] STATES [facility] Creatinine [Mass/Vol] 0.77 mg/dL Normal 0.73-1.22 [facility] Comment on above: Order Comment: Speci men Type: BLOOD SPECIMEN Performed By: #### 1 9123-9, 19835-1, 2776- ####[facility] LABORATORYCLIA [id number] [place] [address] [place] GFR/1.73 sq M.predicted MDRD (S/P/Bld) [Vol rate/Area] mL/min/{1.73_m2} Normal [facility] Comment on above: [...] actual GFR. Performed By: #### 1 9123-9, 87520-6, 2776-05 ####[facility] LABORATORYCLIA [id number] [place] [address] [place] Glucose [Mass/Vol] 96 mg/dL Normal 74-99 [facility] Comment on above: Order Comment: Speci men Type: BLOOD SPECIMEN Result Comment: The [place] [employer] (ADA) provides guidance for cutoff [...] Standards of Medical Care in Diabetes 2016, [place] [employer]. Diabetes Care. 2016.39(Suppl 1). Performed By: #### 1 9, , 2776-05 ####[facility] LABORATORYCLIA [id number] [place] [address] [place] Potassium [Moles/Vol] 3.9 mmol/L Normal 3.7-5.1 [facility] Comment on above: Order Comment: Speci men Type: BLOOD SPECIMEN Performed By: #### 1 9123-9, 04970-3, 2776-05 ####[facility] LABORATORYCLIA [id number] [place] [address] [place] Sodium [Moles/Vol] 144 mmol/L Normal 136-144 [facility] Comment on above: Order Comment: Speci men Type: BLOOD SPECIMEN Performed By: #### 1 9123-9, 73533-3, 2776-05 ####[facility] LABORATORYCLIA [id number] [address] Urea nitrogen [Mass/Vol] 26 mg/dL High 9-24 [facility] Comment on above: Order Comment: Speci men Type: BLOOD SPECIMEN Performed By: #### 1 9123-9, 18891-3, 2777-1 ####[facility] LABORATORYCLIA [id number] [address] CBC panel Auto (Bld)on 06-05 Erythrocyte distribution width (RBC) [Ratio] 15.9 % High 11.5-15.0 [facility] Comment on above: Order Comment: Speci men Type: BLOOD SPECIMEN Performed By: #### 5 8410-2 ####[facility] LABORATORYCLIA [id number] [address] Hematocrit (Bld) [Volume fraction] 39.6 % Normal 39.0-51.0 [facility] Comment on above: Order Comment: Speci men Type: BLOOD SPECIMEN Performed By: #### 5 8410-2 ####[facility] LABORATORYCLIA [id number] [address] Hemoglobin (Bld) [Mass/Vol] 12.3 g/dL Low 13.0-17.0 [facility] Comment on above: Order Comment: Speci men Type: BLOOD SPECIMEN Performed By: #### 5 8410-2 ####[facility] LABORATORYCLIA [id number] [address] MCH (RBC) [Entitic mass] 28.1 pg Normal 26.0-34.0 [facility] Comment on above: Order Comment: Speci men Type: BLOOD SPECIMEN Performed By: #### 5 8410-2 ####[facility] LABORATORYCLIA [id number] [address] STATES [facility] MCHC (RBC) [Mass/Vol] 31.1 g/dL Normal 30.5-36.0 [facility] Comment on above: Order Comment: Speci men Type: BLOOD SPECIMEN Performed By: #### 5 8410-2 ####[facility] LABORATORYCLIA [id number] [address] MCV (RBC) [Entitic vol] 90.4 fL Normal 80.0-100.0 [facility] Comment on above: Order Comment: Speci men Type: BLOOD SPECIMEN Performed By: #### 5 8410-2 ####[facility] LABORATORYCLIA [id number] [address] Nucleated RBC (Bld) [#/Vol] 10*3/uL Normal <0.01 [facility] Comment on above: Order Comment: Speci men Type: BLOOD SPECIMEN Performed By: #### 5 8410-2 ####[facility] LABORATORYCLIA [id number] [address] Platelet mean volume (Bld) [Entitic vol] 10.5 fL Normal 9.0-12.7 [facility] Comment on above: Order Comment: Speci men Type: BLOOD SPECIMEN Performed By: #### 5 8410-2 ####[facility] LABORATORYCLIA [id number] [address] Platelets (Bld) [#/Vol] 224 10*3/uL Normal 150-400 [facility] Comment on above: Order Comment: Speci men Type: BLOOD SPECIMEN Performed By: #### 5 8410-2 ####[facility] LABORATORYCLIA [id number] [address] RBC (Bld) [#/Vol] 4.38 10*6/uL Normal 4.20-6.00 [facility] Comment on above: Order Comment: Speci men Type: BLOOD SPECIMEN Performed By: #### 5 8410-2 ####[facility] LABORATORYCLIA [id number] [address] WBC (Bld) [#/Vol] 9.66 10*3/uL Normal 3.70-11.00 [facility] Comment on above: Order Comment: Speci men Type: BLOOD SPECIMEN Performed By: #### 5 8410-2 ####[facility] LABORATORYCLIA [id number] [address] [place] CONSULT PROGon 06-05-2021 CONSULT PROG Normal [facility] Gas and Carbon monoxide pane l (BldV)on 06-05-2021 Base excess Calc (BldV) [Moles/Vol] 1.8 mmol/L Normal 0-2 [facility] Comment on above: Order Comment: Speci men Type: VENOUS BLOOD SPECIMEN Performed By: #### 2 4344-4 ####[facility] LABORATORYCLIA [id number] [address] Body temperature 100.4 [degF] Normal [facility] Comment on above: Order Comment: Speci men Type: VENOUS BLOOD SPECIMEN Performed By: #### 2 4344-4 ####[facility] LABORATORYCLIA [id number] [address] CALCIUM IONIZED, PH CORRECTED 1.21 mmol/L Normal 1.08-1.30 [facility] Comment on above: Order Comment: Speci men Type: VENOUS BLOOD SPECIMEN Performed By: #### 2 4344-4 ####[facility] LABORATORYCLIA [id number] [address] Calcium.ionized (BldV) [Mass/Vol] 1.19 mmol/L Normal 1.08-1.30 [facility] Comment on above: Order Comment: Speci men Type: VENOUS BLOOD SPECIMEN Performed By: #### 2 4344-4 ####[facility] LABORATORYCLIA [id number] [address] [place] Carboxyhemoglobin (BldV) [Mass fraction] 1.0 % Normal 0.0-2.0 [facility] Comment on above: Order Comment: Speci men Type: VENOUS BLOOD SPECIMEN Result Comment: Carb oxyhemoglobin Reference Range for Smokers: 2.0-8.0% Performed By: #### 2 4344-4 ####[facility] LABORATORYCLIA [id number] [place] [address] [place] CO2 (BldV) [Partial pressure] 41 mm[Hg] Low 42-55 [facility] Comment on above: Order Comment: Speci men Type: VENOUS BLOOD SPECIMEN Performed By: #### 2 4344-4 ####[facility]ORATORYCLIA [id number] [address] [facility] CO2 [Moles/Vol] 23.4 mmol/L Low 25-29 [facility] Comment on above: Order Comment: Speci men Type: VENOUS BLOOD SPECIMEN Performed By: #### 2 4344-4 ####[facility]ORATORYCLIA [id number] [address] [facility] CO2 adjusted to patient's actual temperature (BldV) [Partial pressure] 43 mmHg Normal 42-55 [facility] Comment on above: Order Comment: Speci men Type: VENOUS BLOOD SPECIMEN Performed By: #### 2 4344-4 ####[facility]ORATORYCLIA [id number] [address] STATES [facility] Glucose [Mass/Vol] 101 mg/dL Normal 60-105 [facility] Comment on above: Order Comment: Speci men Type: VENOUS BLOOD SPECIMEN Performed By: #### 2 4344-4 ####[facility]ORATORYCLIA [id number] [address] [place] HCO3 (Bld) [Moles/Vol] 26.0 mmol/L Normal 24-28 [facility] Comment on above: Order Comment: Speci men Type: VENOUS BLOOD SPECIMEN Performed By: #### 2 4344-4 ####[facility]ATORYCLIA [id number] [address] [place] Hematocrit (Bld) [Volume fraction] 38.4 % Low 39.0-51.0 [facility] Comment on above: Order Comment: Speci men Type: VENOUS BLOOD SPECIMEN Performed By: #### 2 4344-4 ####[facility]ORATORYCLIA [id number] [address] [place] Hemoglobin (Bld) [Mass/Vol] 12.5 g/dL Low 13.0-17.0 [facility] Comment on above: Order Comment: Speci men Type: VENOUS BLOOD SPECIMEN Performed By: #### 2 4344-4 ####[facility]ORATORYCLIA [id number] [place] [address] [facility] [place] Methemoglobin (Bld) [Mass fraction] % Normal 0.0-1.5 [facility] Comment on above: Order Comment: Speci men Type: VENOUS BLOOD SPECIMEN Performed By: #### 2 4344-4 ####[facility]ORATORYCLIA [id number] [place] [address] [facility] [place] O2 THERAPY Ventilator Normal [facility] Comment on above: Order Comment: Speci men Type: VENOUS BLOOD SPECIMEN Performed By: #### 2 4344-4 ####[facility]ORATORYCLIA [id number] [place] [address] [facility] [place] Oxygen (BldV) [Partial pressure] 44 mm[Hg] Normal 35-45 [facility] Comment on above: Order Comment: Speci men Type: VENOUS BLOOD SPECIMEN Performed By: #### 2 4344-4 ####[facility]ORATORYCLIA [id number] [place] [address] [facility] Oxygen adjusted to patient's actual temperature (BldV) [Partial pressure] 46.8 mmHg High 35-45 [facility] Comment on above: Order Comment: Speci men Type: VENOUS BLOOD SPECIMEN Performed By: #### 2 4344-4 ####[facility]ORATORYCLIA [id number] [place] [address] [facility] [place] Oxygen saturation in Blood 76.5 % Normal 60-85 [facility] Comment on above: Order Comment: Speci men Type: VENOUS BLOOD SPECIMEN Performed By: #### 2 4344-4 ####[facility]ORATORYCLIA [id number] [place] [address] [facility] [place] Oxyhemoglobin (BldV) [Mass fraction] 75 % Normal 60-85 [facility] Comment on above: Order Comment: Speci men Type: VENOUS BLOOD SPECIMEN Performed By: #### 2 4344-4 ####[facility]ATORYCLIA [id number] [address] pH (BldV) 7.42 [pH] Normal 7.32-7.42 [facility] Comment on above: Order Comment: Speci men Type: VENOUS BLOOD SPECIMEN Performed By: #### 2 4344-4 ####[facility] LABORATORYCLIA [id number] [address] pH adjusted to patient's actual temperature (BldV) 7.40 Normal 7.32-7.42 [facility] Comment on above: Order Comment: Speci men Type: VENOUS BLOOD SPECIMEN Performed By: #### 2 4344-4 ####[facility] LABORATORYCLIA [id number] [address] [facility] Potassium [Moles/Vol] 3.7 mmol/L Normal 3.5-5.0 [facility] Comment on above: Order Comment: Speci men Type: VENOUS BLOOD SPECIMEN Performed By: #### 2 4344-4 ####[facility] LABORATORYCLIA [id number] [address] Sodium [Moles/Vol] 141 mmol/L Normal 136-144 [facility] Comment on above: Order Comment: Speci men Type: VENOUS BLOOD SPECIMEN Performed By: #### 2 4344-4 ####[facility] LABORATORYCLIA [id number] [address] [place] Magnesium SerPl-mCncon 06-05 Magnesium [Mass/Vol] 2.3 mg/dL Normal 1.7-2.3 [facility] Comment on above: Order Comment: Speci men Type: BLOOD SPECIMEN Performed By: #### 1 9123-9, 10301-7, 2777-1 ####[facility]ORATORYCLIA [id number] [address] [place] Phosphate SerPl-mCncon 06-05 Phosphate [Mass/Vol] 2.9 mg/dL Normal 2.7-4.8 [facility] Comment on above: Order Comment: Speci men Type: BLOOD SPECIMEN Performed By: #### 1 9123-9, 46177-8, 2777-1 ####[facility] LABORATORYCLIA [id number] [place] [address] [place] Vancomycin random [Mass/Vol] on 06-05-2021 Vancomycin [Mass/Vol] 23.2 ug/mL High 10.0-20.0 [facility] Comment on above: Order Comment: Speci men Type: BLOOD SPECIMEN Result Comment: Refe rence ranges and high/low indicator flags are provided as general guidelines only. The treating physician must determine appropriate target levels/dosing based on the specific clinical situation. Performed By: #### 4 091-5 ####[facility] LABORATORYCLIA [id number] [place] [address] [place] (1,3)-O-M-GOVIMQcw 2 (1,3) B-D GLUCAN <31 Normal <60 [facility] Comment on above: Order Comment: Speci [facility] Type: BLOOD SPECIMEN Performed By: #### B DGLUC ####[facility] LABCLIA [id number] [id number] [address] [place] (1,3) B-D GLUCAN, QUAL Negative Normal NEGAT [facility] Comment on above: Order Comment: Speci men Type: BLOOD SPECIMEN Result Comment: Cert ain fungi, such as the genus Cryptococcus which produces very low levels of (1,3)-iroi-Q-hhzdxm, may not result in serum (1,3)-dxzm-O-yunfll sufficiently elevated so as to be detected by the assay. Infections with fungi of the order Mucorales such as Absidia, Mucor and Rhizopus which are not known to produce (1,3)-yggd-F-qebmno, are also observed to yield low serum (1,3)-rjbk-W-qobhgq titers.In addition, the yeast phase of Blastomyces dermatitidis produces little (1,3)-xcwe-W-slxjwr and may not be detected by the assay. Performed By: #### B DGLUC ####[facility]FER[facility] LABCLIA [id number] [id number] [address] [place] ALLIED HEALTHon 06-04-2021 ALLIED HEALTH Normal [facility] ALLIED HEALTH Normal [facility] ARTERIAL BLOOD GASESon 06-04 Base excess Calc (Bld) [Moles/Vol] 3 mmol/L High 0-2 [facility] Comment on above: Order Comment: Speci men Type: ARTERIAL BLOOD SPECIMEN Performed By: #### A LLBG ####[facility] LABORATORYCLIA [id number] [address] STATES [facility] Body temperature 98.06 [degF] Normal [facility] Comment on above: Order Comment: Speci men Type: ARTERIAL BLOOD SPECIMEN Performed By: #### A LLBG ####[facility] LABORATORYCLIA [id number] [address] CALCIUM IONIZED, PH CORRECTED 1.19 mmol/L Normal 1.08-1.30 [facility] Comment on above: Order Comment: Speci men Type: ARTERIAL BLOOD SPECIMEN Performed By: #### A LLBG ####[facility] LABORATORYCLIA [id number] [address] Calcium.ionized (BldV) [Mass/Vol] 1.14 mmol/L Normal 1.08-1.30 [facility] Comment on above: Order Comment: Speci men Type: ARTERIAL BLOOD SPECIMEN Performed By: #### A LLBG ####[facility] LABORATORYCLIA [id number] [address] [place] Carboxyhemoglobin (BldA) [Mass fraction] 1.2 % Normal 0.0-2.0 [facility] Comment on above: Order Comment: Speci men Type: ARTERIAL BLOOD SPECIMEN Result Comment: Carb oxyhemoglobin Reference Range for Smokers: 2.0-8.0% Performed By: #### A LLBG ####[facility] LABORATORYCLIA [id number] [place] [address] [place] CO2 (Bld) [Partial pressure] 35 mm Hg Low 36-46 [facility] Comment on above: Order Comment: Speci men Type: ARTERIAL BLOOD SPECIMEN Performed By: #### A LLBG ####[facility]ORATORYCLIA [id number] [address] [place] CO2 [Moles/Vol] 23.2 mmol/L Normal 22-28 [facility] Comment on above: Order Comment: Speci men Type: ARTERIAL BLOOD SPECIMEN Performed By: #### A LLBG ####[facility]ORATORYCLIA [id number] [address] CO2 adjusted to patient's actual temperature (Bld) [Partial pressure] 34 mmHg Low 36-46 [facility] Comment on above: Order Comment: Speci men Type: ARTERIAL BLOOD SPECIMEN Performed By: #### A LLBG ####[facility] LABORATORYCLIA [id number] [address] Glucose [Mass/Vol] 115 mg/dL High 60-105 [facility] Comment on above: Order Comment: Speci men Type: ARTERIAL BLOOD SPECIMEN Performed By: #### A LLBG ####[facility]ORATORYCLIA [id number] [address] [place] HCO3 (Bld) [Moles/Vol] 26 mmol/L Normal 22-26 [facility] Comment on above: Order Comment: Speci men Type: ARTERIAL BLOOD SPECIMEN Performed By: #### A LLBG ####[facility]ATORYCLIA [id number] [address] [place] Hematocrit (Bld) [Volume fraction] 35.3 % Low 39.0-51.0 [facility] Comment on above: Order Comment: Speci men Type: ARTERIAL BLOOD SPECIMEN Performed By: #### A LLBG ####[facility]ATORYCLIA [id number] [address] [place] Hemoglobin (Bld) [Mass/Vol] 11.5 g/dL Low 13.0-17.0 [facility] Comment on above: Order Comment: Speci men Type: ARTERIAL BLOOD SPECIMEN Performed By: #### A LLBG ####[facility]ORYCLIA [id number] [address] Methemoglobin (Bld) [Mass fraction] % Normal 0.0-1.5 [facility] Comment on above: Order Comment: Speci men Type: ARTERIAL BLOOD SPECIMEN Performed By: #### A LLBG ####[facility]ORYCLIA [id number] [address] O2 THERAPY Ventilator Normal [facility] Comment on above: Order Comment: Speci men Type: ARTERIAL BLOOD SPECIMEN Performed By: #### A LLBG ####[facility]ORYCLIA [id number] [address] Oxygen (Bld) [Partial pressure] 66 mm Hg Low 85-95 [facility] Comment on above: Order Comment: Speci men Type: ARTERIAL BLOOD SPECIMEN Performed By: #### A LLBG ####[facility]ORYCLIA [id number] [address] Oxygen adjusted to patient's actual temperature (Bld) [Partial pressure] 64.3 mmHg Low 85-95 [facility] Comment on above: Order Comment: Speci men Type: ARTERIAL BLOOD SPECIMEN Performed By: #### A LLBG ####[facility]ORYCLIA [id number] [address] OXYGEN SATURATION, ARTERIAL 95 % Normal 95-98 [facility] Comment on above: Order Comment: Speci men Type: ARTERIAL BLOOD SPECIMEN Performed By: #### A LLBG ####[facility]ORYCLIA [id number] [address] Oxyhemoglobin (BldA) [Mass fraction] 93 % Low 95-98 [facility] Comment on above: Order Comment: Speci men Type: ARTERIAL BLOOD SPECIMEN Performed By: #### A LLBG ####[facility]ORYCLIA [id number] [address] pH (Bld) 7.49 [pH] High 7.35-7.45 [facility] Comment on above: Order Comment: Speci men Type: ARTERIAL BLOOD SPECIMEN Performed By: #### A LLBG ####[facility] LABORATORYCLIA [id number] [address] pH adjusted to patient's actual temperature (Bld) 7.49 High 7.35-7.45 [facility] Comment on above: Order Comment: Speci men Type: ARTERIAL BLOOD SPECIMEN Performed By: #### A LLBG ####[facility] LABORATORYCLIA [id number] [address] Potassium [Moles/Vol] 2.8 mmol/L Low 3.5-5.0 [facility] Comment on above: Order Comment: Speci men Type: ARTERIAL BLOOD SPECIMEN Performed By: #### A LLBG ####[facility] LABORATORYCLIA [id number] [address] Bas Metab 2000 Pnl SerPlon 0 06-04-2021 Sodium [Moles/Vol] 143 mmol/L Normal 136-144 [facility] Comment on above: Order Comment: Speci men Type: BLOOD SPECIMEN Performed By: #### 2 777-1, , ####[facility] LABORATORYCLIA [id number] [address] Order Comment: Speci men Type: ARTERIAL BLOOD SPECIMEN Performed By: #### A LLBG ####[facility] LABORATORYCLIA [id number] [address] Basic metabolic 2000 panelon 06-04-2021 Anion gap [Moles/Vol] 11 mmol/L Normal 9-18 [facility] Comment on above: Order Comment: Speci men Type: BLOOD SPECIMEN Performed By: #### 2 777-1, 30483-0, 24633-4 ####[facility] LABORATORYCLIA [id number] [address] Calcium [Mass/Vol] 8.5 mg/dL Normal 8.5-10.2 [facility] Comment on above: Order Comment: Speci men Type: BLOOD SPECIMEN Performed By: #### 2 777-1, , ####[facility] LABORATORYCLIA [id number] [place] [address] [place] Chloride [Moles/Vol] 107 mmol/L High 97-105 [facility] Comment on above: Order Comment: Speci men Type: BLOOD SPECIMEN Performed By: #### 2 777-1, , ####[facility] LABORATORYCLIA [id number] [address] [place] CO2 [Moles/Vol] 25 mmol/L Normal 22-30 [facility] Comment on above: Order Comment: Speci men Type: BLOOD SPECIMEN Performed By: #### 2 777-1, , ####[facility] LABORATORYCLIA [id number] [place] [address] [place] Creatinine [Mass/Vol] 0.77 mg/dL Normal 0.73-1.22 [facility] Comment on above: Order Comment: Speci men Type: BLOOD SPECIMEN Performed By: #### 2 777-1, , ####[facility] LABORATORYCLIA [id number] [place] [address] [place] GFR/1.73 sq M.predicted MDRD (S/P/Bld) [Vol rate/Area] mL/min/{1.73_m2} Normal [facility] Comment on above: [...] GFR. Performed By: #### 2 777-1, , ####[facility] LABORATORYCLIA [id number] [address] STATES [facility] Glucose [Mass/Vol] 107 mg/dL High 74-99 [facility] Comment on above: Order Comment: Speci men Type: BLOOD SPECIMEN Result Comment: The [place] [employer] (ADA) provides guidance for cutoff [...] Standards of Medical Care in Diabetes 2016, [place] [employer]. Diabetes Care. 2016.39(Suppl 1). Performed By: #### 2 777-, , ####[facility] LABORATORYCLIA [id number] [address] [place] [facility] Potassium [Moles/Vol] 3.1 mmol/L Low 3.7-5.1 [facility] Comment on above: Order Comment: Speci men Type: BLOOD SPECIMEN Performed By: #### 2 777-1, , ####[facility] LABORATORYCLIA [id number] [address] STATES [facility] Urea nitrogen [Mass/Vol] 19 mg/dL Normal 9-24 [facility] Comment on above: Order Comment: Speci men Type: BLOOD SPECIMEN Performed By: #### 2 777-1, , ####[facility] LABORATORYCLIA [id number] [address] OF [facility] CBC panel Auto (Bld)on 06-04 Erythrocyte distribution width (RBC) [Ratio] 15.8 % High 11.5-15.0 [facility] Comment on above: Order Comment: Speci men Type: BLOOD SPECIMEN Performed By: #### 5 8410-2 ####[facility] LABORATORYCLIA [id number] [address] Hematocrit (Bld) [Volume fraction] 36.9 % Low 39.0-51.0 [facility] Comment on above: Order Comment: Speci men Type: BLOOD SPECIMEN Performed By: #### 5 8410-2 ####[facility]ORATORYCLIA [id number] [address] Hemoglobin (Bld) [Mass/Vol] 11.2 g/dL Low 13.0-17.0 [facility] Comment on above: Order Comment: Speci men Type: BLOOD SPECIMEN Performed By: #### 5 8410-2 ####[facility] LABORATORYCLIA [id number] [address] MCH (RBC) [Entitic mass] 27.3 pg Normal 26.0-34.0 [facility] Comment on above: Order Comment: Speci men Type: BLOOD SPECIMEN Performed By: #### 5 8410-2 ####[facility]ORATORYCLIA [id number] [address] MCHC (RBC) [Mass/Vol] 30.4 g/dL Low 30.5-36.0 [facility] Comment on above: Order Comment: Speci men Type: BLOOD SPECIMEN Performed By: #### 5 8410-2 ####[facility]ORATORYCLIA [id number] [address] MCV (RBC) [Entitic vol] 89.8 fL Normal 80.0-100.0 [facility] Comment on above: Order Comment: Speci men Type: BLOOD SPECIMEN Performed By: #### 5 8410-2 ####[facility]ORATORYCLIA [id number] [address] Nucleated RBC (Bld) [#/Vol] 10*3/uL Normal <0.01 [facility] Comment on above: Order Comment: Speci men Type: BLOOD SPECIMEN Performed By: #### 5 8410-2 ####[facility] LABORATORYCLIA [id number] [address] Platelet mean volume (Bld) [Entitic vol] 10.7 fL Normal 9.0-12.7 [facility] Comment on above: Order Comment: Speci men Type: BLOOD SPECIMEN Performed By: #### 5 8410-2 ####[facility] LABORATORYCLIA [id number] [address] STATES [facility] Platelets (Bld) [#/Vol] 174 10*3/uL Normal 150-400 [facility] Comment on above: Order Comment: Speci men Type: BLOOD SPECIMEN Performed By: #### 5 8410-2 ####[facility]ORATORYCLIA [id number] [address] [facility] RBC (Bld) [#/Vol] 4.11 10*6/uL Low 4.20-6.00 [facility] Comment on above: Order Comment: Speci men Type: BLOOD SPECIMEN Performed By: #### 5 8410-2 ####[facility]ORATORYCLIA [id number] [address] [place] [facility] WBC (Bld) [#/Vol] 8.29 10*3/uL Normal 3.70-11.00 [facility] Comment on above: Order Comment: Speci men Type: BLOOD SPECIMEN Performed By: #### 5 8410-2 ####[facility]ORATORYCLIA [id number] [address] CONSULT PROGon 06-04-2021 CONSULT PROG Normal [facility] CT BRAIN WO IVCONon 06-04-19 CT BRAIN WO IVCON Normal [facility] CT CHEST W IVCON PEon 2021 CT CHEST W IVCON PE Normal [facility] Magnesium SerPl-mCncon 06-04 Magnesium [Mass/Vol] 2.2 mg/dL Normal 1.7-2.3 [facility] Comment on above: Order Comment: Speci men Type: BLOOD SPECIMEN Performed By: #### 2 777-1, 14584-6, 55805-8 ####[facility]ORATORYCLIA [id number] [address] [facility] NT-proBNP SerPl-mCncon 06-04 Natriuretic peptide.B prohormone N-Terminal [Mass/Vol] 229 pg/mL High <125 [facility] Comment on above: Order Comment: Speci men Type: BLOOD SPECIMEN Performed By: #### 3 3762-6, 4091-5 ####[facility]ORATORYCLIA [id number] [address] [place] [facility] Phosphate SerPl-ncon 06-04 Phosphate [Mass/Vol] 2.0 mg/dL Low 2.7-4.8 [facility] Comment on above: Order Comment: Speci men Type: BLOOD SPECIMEN Performed By: #### 2 777-1, , 53105-4 ####[facility]ORATORYCLIA [id number] [address] Vancomycin random [Mass/Vol] on 06-04-2021 Vancomycin [Mass/Vol] 35.2 ug/mL High 10.0-20.0 [facility] Comment on above: Order Comment: Speci men Type: BLOOD SPECIMEN Result Comment: Refe rence ranges and high/low indicator flags are provided as general guidelines only. The treating physician must determine appropriate target levels/dosing based on the specific clinical situation. Performed By: #### 3 3762-6, 4091-5 ####[facility]ORATORYCLIA [id number] [address] [place] XR ABDOMEN 1V SUPINEon 06-04 XR ABDOMEN 1V SUPINE Normal [facility] ALLIED HEALTHon 06-03-2021 ALLIED HEALTH Normal [facility] ARTERIAL BLOOD GASESon 06-03 Base excess Calc (Bld) [Moles/Vol] 5 mmol/L High 0-2 [facility] Comment on above: Order Comment: Speci men Type: ARTERIAL BLOOD SPECIMEN Performed By: #### A LLBG ####[facility]ORATORYCLIA [id number] [address] Body temperature 99.5 [degF] Normal [facility] Comment on above: Order Comment: Speci men Type: ARTERIAL BLOOD SPECIMEN Performed By: #### A LLBG ####[facility]ORATORYCLIA [id number] [address] CALCIUM IONIZED, PH CORRECTED 1.18 mmol/L Normal 1.08-1.30 [facility] Comment on above: Order Comment: Speci men Type: ARTERIAL BLOOD SPECIMEN Performed By: #### A LLBG ####[facility]ORATORYCLIA [id number] [address] Calcium.ionized (BldV) [Mass/Vol] 1.16 mmol/L Normal 1.08-1.30 [facility] Comment on above: Order Comment: Speci men Type: ARTERIAL BLOOD SPECIMEN Performed By: #### A LLBG ####[facility]ORATORYCLIA [id number] [address] Carboxyhemoglobin (BldA) [Mass fraction] 1.2 % Normal 0.0-2.0 [facility] Comment on above: Order Comment: Speci men Type: ARTERIAL BLOOD SPECIMEN Result Comment: Carb oxyhemoglobin Reference Range for Smokers: 2.0-8.0% Performed By: #### A LLBG ####[facility]ORATORYCLIA [id number] [address] CO2 (Bld) [Partial pressure] 45 mm Hg Normal 36-46 [facility] Comment on above: Order Comment: Speci men Type: ARTERIAL BLOOD SPECIMEN Performed By: #### A LLBG ####[facility]ORATORYCLIA [id number] [address] CO2 [Moles/Vol] 26.9 mmol/L Normal 22-28 [facility] Comment on above: Order Comment: Speci men Type: ARTERIAL BLOOD SPECIMEN Performed By: #### A LLBG ####[facility]ORYCLIA [id number] [address] CO2 adjusted to patient's actual temperature (Bld) [Partial pressure] 47 mmHg High 36-46 [facility] Comment on above: Order Comment: Speci men Type: ARTERIAL BLOOD SPECIMEN Performed By: #### A LLBG ####[facility]ORYCLIA [id number] [address] Glucose [Mass/Vol] 141 mg/dL High 60-105 [facility] Comment on above: Order Comment: Speci men Type: ARTERIAL BLOOD SPECIMEN Performed By: #### A LLBG ####[facility]ORYCLIA [id number] [address] [place] HCO3 (Bld) [Moles/Vol] 30 mmol/L High 22-26 [facility] Comment on above: Order Comment: Speci men Type: ARTERIAL BLOOD SPECIMEN Performed By: #### A LLBG ####[facility]ORATORYCLIA [id number] [address] Hematocrit (Bld) [Volume fraction] 35.8 % Low 39.0-51.0 [facility] Comment on above: Order Comment: Speci men Type: ARTERIAL BLOOD SPECIMEN Performed By: #### A LLBG ####[facility]ORYCLIA [id number] [address] [place] Hemoglobin (Bld) [Mass/Vol] 11.6 g/dL Low 13.0-17.0 [facility] Comment on above: Order Comment: Speci men Type: ARTERIAL BLOOD SPECIMEN Performed By: #### A LLBG ####[facility]ORYCLIA [id number] [address] Methemoglobin (Bld) [Mass fraction] % Normal 0.0-1.5 [facility] Comment on above: Order Comment: Speci men Type: ARTERIAL BLOOD SPECIMEN Performed By: #### A LLBG ####[facility]ORYCLIA [id number] [address] [facility] O2 THERAPY Ventilator Normal [facility] Comment on above: Order Comment: Speci men Type: ARTERIAL BLOOD SPECIMEN Performed By: #### A LLBG ####[facility]ORYCLIA [id number] [address] Oxygen (Bld) [Partial pressure] 69 mm Hg Low 85-95 [facility] Comment on above: Order Comment: Speci men Type: ARTERIAL BLOOD SPECIMEN Performed By: #### A LLBG ####[facility]ORYCLIA [id number] [address] Oxygen adjusted to patient's actual temperature (Bld) [Partial pressure] 70.8 mmHg Low 85-95 [facility] Comment on above: Order Comment: Speci men Type: ARTERIAL BLOOD SPECIMEN Performed By: #### A LLBG ####[facility]ORYCLIA [id number] [address] OXYGEN SATURATION, ARTERIAL 94 % Low 95-98 [facility] Comment on above: Order Comment: Speci men Type: ARTERIAL BLOOD SPECIMEN Performed By: #### A LLBG ####[facility]ORYCLIA [id number] [address] Oxyhemoglobin (BldA) [Mass fraction] 93 % Low 95-98 [facility] Comment on above: Order Comment: Speci men Type: ARTERIAL BLOOD SPECIMEN Performed By: #### A LLBG ####[facility]ORYCLIA [id number] [address] pH (Bld) 7.43 [pH] Normal 7.35-7.45 [facility] Comment on above: Order Comment: Speci men Type: ARTERIAL BLOOD SPECIMEN Performed By: #### A LLBG ####[facility]ORYCLIA [id number] [address] pH adjusted to patient's actual temperature (Bld) 7.43 Normal 7.35-7.45 [facility] Comment on above: Order Comment: Speci men Type: ARTERIAL BLOOD SPECIMEN Performed By: #### A LLBG ####[facility]ORATORYCLIA [id number] [address] Potassium [Moles/Vol] 3.1 mmol/L Low 3.5-5.0 [facility] Comment on above: Order Comment: Speci men Type: ARTERIAL BLOOD SPECIMEN Performed By: #### A LLBG ####[facility]ORATORYCLIA [id number] [address] Sodium [Moles/Vol] 145 mmol/L High 136-144 [facility] Comment on above: Order Comment: Speci men Type: ARTERIAL BLOOD SPECIMEN Performed By: #### A LLBG ####[facility]ORATORYCLIA [id number] [address] ASPERGILLUS GALACTOMANNAN SE RUMon 06-03-2021 Galactomannan Ag IA Ql Negative Normal NEGAT [facility] Comment on above: Order Comment: Speci [...] suspected. Performed By: #### A SGALS ####[facility] LABCLIA [id number] [place] [place] [id number] [address] [place] Galactomannan Ag IA Qn <0.50 Normal [facility] Comment on above: Order Comment: Speci men Type: BLOOD SPECIMEN Result Comment: Inde x Values are Interpreted as Follows:Negative specimens <0.50Positive specimens >=0.50 Performed By: #### A SGALS ####[facility] LABCLIA [id number] [place] [id number], [place] [address] [place] Basic metabolic 2000 panelon 06-03-2021 Anion gap [Moles/Vol] 8 mmol/L Low 9-18 [facility] Comment on above: Order Comment: Speci men Type: BLOOD SPECIMEN Performed By: #### 1 9123-9, 2777-1, 84847-0 ####[facility] LABORATORYCLIA [id number] [address] [place] Calcium [Mass/Vol] 8.0 mg/dL Low 8.5-10.2 [facility] Comment on above: Order Comment: Speci men Type: BLOOD SPECIMEN Performed By: #### 1 9123-9, 2776-05, 06796-5 ####[facility] LABORATORYCLIA [id number] [address] [place] [facility] Chloride [Moles/Vol] 110 mmol/L High 97-105 [facility] Comment on above: Order Comment: Speci men Type: BLOOD SPECIMEN Performed By: #### 1 9123-9, 2776-05, 28526-4 ####[facility] LABORATORYCLIA [id number] [address] [place] CO2 [Moles/Vol] 28 mmol/L Normal 22-30 [facility] Comment on above: Order Comment: Speci men Type: BLOOD SPECIMEN Performed By: #### 1 9123-9, 27711-04, 55359-1 ####[facility] LABORATORYCLIA [id number] [place] [address] [place] Creatinine [Mass/Vol] 0.75 mg/dL Normal 0.73-1.22 [facility] Comment on above: Order Comment: Speci men Type: BLOOD SPECIMEN Performed By: #### 1 9123-9, 277-, 35973-4 ####[facility]ORYCLIA [id number] [place] [address] [place] GFR/1.73 sq M.predicted MDRD (S/P/Bld) [Vol rate/Area] mL/min/{1.73_m2} Normal [facility] Comment on above: [...] GFR. Performed By: #### 1 9123-9, 2777-, 92632-8 ####[facility] SERVICESCLIA [id number] [place] [address] [place] Glucose [Mass/Vol] 141 mg/dL High 74-99 [facility] Comment on above: Order Comment: Speci men Type: BLOOD SPECIMEN Result Comment: The [place] [employer] (ADA) provides guidance for cutoff [...] Standards of Medical Care in Diabetes 2016, [place] [employer]. Diabetes Care. 2016.39(Suppl 1). Performed By: #### 1 9123-9, 2777-, 05991-5 ####[facility] LABORATORYCLIA [id number] [place] [address] [place] Potassium [Moles/Vol] 3.3 mmol/L Low 3.7-5.1 [facility] Comment on above: Order Comment: Speci [facility] Type: BLOOD SPECIMEN Performed By: #### 1 9123-9, 2777, ####[facility] LABORATORYCLIA [id number] [place] [address] [place] [facility] Sodium [Moles/Vol] 146 mmol/L High 136-144 [facility] Comment on above: Order Comment: Speci men Type: BLOOD SPECIMEN Performed By: #### 1 9123-9, 2777-1, ####[facility] LABORATORYCLIA [id number] [place], [place] [id number] [place] [address] STATES [facility] Urea nitrogen [Mass/Vol] 10 mg/dL Normal 9-24 [facility] Comment on above: Order Comment: Speci men Type: BLOOD SPECIMEN Performed By: #### 1 9123-9, 2776-05, ####[facility] LABORATORYCLIA [id number] [address] CASE MANAGEMon 06-03-2021 CASE MANAGEM Normal [facility] CBC panel Auto (Bld)on 06-03 Erythrocyte distribution width (RBC) [Ratio] 15.6 % High 11.5-15.0 [facility] Comment on above: Order Comment: Speci men Type: BLOOD SPECIMEN Performed By: #### 5 8410-2 ####[facility] LABORATORYCLIA [id number] [address] Hematocrit (Bld) [Volume fraction] 36.9 % Low 39.0-51.0 [facility] Comment on above: Order Comment: Speci men Type: BLOOD SPECIMEN Performed By: #### 5 8410-2 ####[facility] LABORATORYCLIA [id number] [address] [place] [facility] Hemoglobin (Bld) [Mass/Vol] 11.1 g/dL Low 13.0-17.0 [facility] Comment on above: Order Comment: Speci men Type: BLOOD SPECIMEN Performed By: #### 5 8410-2 ####[facility] LABORATORYCLIA [id number] [address] MCH (RBC) [Entitic mass] 27.0 pg Normal 26.0-34.0 [facility] Comment on above: Order Comment: Speci men Type: BLOOD SPECIMEN Performed By: #### 5 8410-2 ####[facility] LABORATORYCLIA [id number] [address] MCHC (RBC) [Mass/Vol] 30.1 g/dL Low 30.5-36.0 [facility] Comment on above: Order Comment: Speci men Type: BLOOD SPECIMEN Performed By: #### 5 8410-2 ####[facility] LABORATORYCLIA [id number] [address] MCV (RBC) [Entitic vol] 89.8 fL Normal 80.0-100.0 [facility] Comment on above: Order Comment: Speci men Type: BLOOD SPECIMEN Performed By: #### 5 8410-2 ####[facility] LABORATORYCLIA [id number] [address] Nucleated RBC (Bld) [#/Vol] 10*3/uL Normal <0.01 [facility] Comment on above: Order Comment: Speci men Type: BLOOD SPECIMEN Performed By: #### 5 8410-2 ####[facility] LABORATORYCLIA [id number] [address] Platelet mean volume (Bld) [Entitic vol] 10.5 fL Normal 9.0-12.7 [facility] Comment on above: Order Comment: Speci men Type: BLOOD SPECIMEN Performed By: #### 5 8410-2 ####[facility] LABORATORYCLIA [id number] [address] Platelets (Bld) [#/Vol] 196 10*3/uL Normal 150-400 [facility] Comment on above: Order Comment: Speci men Type: BLOOD SPECIMEN Performed By: #### 5 8410-2 ####[facility] LABORATORYCLIA [id number] [address] RBC (Bld) [#/Vol] 4.11 10*6/uL Low 4.20-6.00 [facility] Comment on above: Order Comment: Speci men Type: BLOOD SPECIMEN Performed By: #### 5 8410-2 ####[facility] LABORATORYCLIA [id number] [address] [address] [place] WBC (Bld) [#/Vol] 8.18 10*3/uL Normal 3.70-11.00 [facility] Comment on above: Order Comment: Speci men Type: BLOOD SPECIMEN Performed By: #### 5 8410-2 ####[facility] LABORATORYCLIA [id number] [address] [place] CONSULTon 06-03-2021 CONSULT Normal [facility] CONSULT PROGon 06-03-2021 CONSULT PROG Normal [facility] Gas and Carbon monoxide pane l (BldV)on 06-03-2021 Base excess Calc (BldV) [Moles/Vol] 1.4 mmol/L Normal 0-2 [facility] Comment on above: Order Comment: Speci men Type: VENOUS BLOOD SPECIMEN Performed By: #### 2 4344-4 ####[facility] LABORATORYCLIA [id number] [address] Body temperature 98.42 [degF] Normal [facility] Comment on above: Order Comment: Speci men Type: VENOUS BLOOD SPECIMEN Performed By: #### 2 4344-4 ####[facility] LABORATORYCLIA [id number] [address] CALCIUM IONIZED, PH CORRECTED 1.09 mmol/L Normal 1.08-1.30 [facility] Comment on above: Order Comment: Speci men Type: VENOUS BLOOD SPECIMEN Performed By: #### 2 4344-4 ####[facility] LABORATORYCLIA [id number] [address] Calcium.ionized (BldV) [Mass/Vol] 1.12 mmol/L Normal 1.08-1.30 [facility] Comment on above: Order Comment: Speci men Type: VENOUS BLOOD SPECIMEN Performed By: #### 2 4344-4 ####[facility]ATORYCLIA [id number] [address] Carboxyhemoglobin (BldV) [Mass fraction] 1.7 % Normal 0.0-2.0 [facility] Comment on above: Order Comment: Speci men Type: VENOUS BLOOD SPECIMEN Result Comment: Carb oxyhemoglobin Reference Range for Smokers: 2.0-8.0% Performed By: #### 2 4344-4 ####[facility]ATORYCLIA [id number] [address] CO2 (BldV) [Partial pressure] 50 mm[Hg] Normal 42-55 [facility] Comment on above: Order Comment: Speci men Type: VENOUS BLOOD SPECIMEN Performed By: #### 2 4344-4 ####[facility]ORATORYCLIA [id number] [address] CO2 [Moles/Vol] 24.9 mmol/L Low 25-29 [facility] Comment on above: Order Comment: Speci men Type: VENOUS BLOOD SPECIMEN Performed By: #### 2 4344-4 ####[facility]ATORYCLIA [id number] [address] CO2 adjusted to patient's actual temperature (BldV) [Partial pressure] 50 mmHg Normal 42-55 [facility] Comment on above: Order Comment: Speci men Type: VENOUS BLOOD SPECIMEN Performed By: #### 2 4344-4 ####[facility]ATORYCLIA [id number] [address] FIO2 30 % Normal [facility] Comment on above: Order Comment: Speci men Type: VENOUS BLOOD SPECIMEN Performed By: #### 2 4344-4 ####[facility]ATORYCLIA [id number] [address] Glucose [Mass/Vol] 191 mg/dL High 60-105 [facility] Comment on above: Order Comment: Speci men Type: VENOUS BLOOD SPECIMEN Performed By: #### 2 4344-4 ####[facility]ORATORYCLIA [id number] [place], [place] [id number] [place] [address] [place] HCO3 (Bld) [Moles/Vol] 27.1 mmol/L Normal 24-28 [facility] Comment on above: Order Comment: Speci men Type: VENOUS BLOOD SPECIMEN Performed By: #### 2 4344-4 ####[facility]ATORYCLIA [id number] [address] Hematocrit (Bld) [Volume fraction] 36.2 % Low 39.0-51.0 [facility] Comment on above: Order Comment: Speci men Type: VENOUS BLOOD SPECIMEN Performed By: #### 2 4344-4 ####[facility]ATORYCLIA [id number] [address] Hemoglobin (Bld) [Mass/Vol] 11.8 g/dL Low 13.0-17.0 [facility] Comment on above: Order Comment: Speci men Type: VENOUS BLOOD SPECIMEN Performed By: #### 2 4344-4 ####[facility]ATORYCLIA [id number] [address] INHALED TIDAL VOLUME (ML) 530 Normal [facility] Comment on above: Order Comment: Speci men Type: VENOUS BLOOD SPECIMEN Performed By: #### 2 4344-4 ####[facility]ATORYCLIA [id number] [address] [place] Methemoglobin (Bld) [Mass fraction] % Normal 0.0-1.5 [facility] Comment on above: Order Comment: Speci men Type: VENOUS BLOOD SPECIMEN Performed By: #### 2 4344-4 ####[facility]ATORYCLIA [id number] [address] [place] O2 THERAPY Ventilator Normal [facility] Comment on above: Order Comment: Speci men Type: VENOUS BLOOD SPECIMEN Performed By: #### 2 4344-4 ####[facility]ORATORYCLIA [id number] [place] [address] [place] Oxygen (BldV) [Partial pressure] 69 mm[Hg] High 35-45 [facility] Comment on above: Order Comment: Speci men Type: VENOUS BLOOD SPECIMEN Performed By: #### 2 4344-4 ####[facility]ORYCLIA [id number] [place], [place] [id number] [place] [address] [place] Oxygen adjusted to patient's actual temperature (BldV) [Partial pressure] 68.8 mmHg High 35-45 [facility] Comment on above: Order Comment: Speci men Type: VENOUS BLOOD SPECIMEN Performed By: #### 2 4344-4 ####[facility]ATORYCLIA [id number] [place], [place] [id number] [place] [address] Oxygen saturation in Blood 92.4 % High 60-85 [facility] Comment on above: Order Comment: Speci men Type: VENOUS BLOOD SPECIMEN Performed By: #### 2 4344-4 ####[facility]ATORYCLIA [id number] [address] Oxyhemoglobin (BldV) [Mass fraction] 90 % High 60-85 [facility] Comment on above: Order Comment: Speci men Type: VENOUS BLOOD SPECIMEN Performed By: #### 2 4344-4 ####[facility]ORATORYCLIA [id number] [address] [place] PEEP/CPAP 8 cmH2O Normal [facility] Comment on above: Order Comment: Speci men Type: VENOUS BLOOD SPECIMEN Performed By: #### 2 4344-4 ####[facility]ATORYCLIA [id number] [address] [place] pH (BldV) 7.35 [pH] Normal 7.32-7.42 [facility] Comment on above: Order Comment: Speci men Type: VENOUS BLOOD SPECIMEN Performed By: #### 2 4344-4 ####[facility]ATORYCLIA [id number] [address] OF [facility] pH adjusted to patient's actual temperature (BldV) 7.35 Normal 7.32-7.42 [facility] Comment on above: Order Comment: Speci men Type: VENOUS BLOOD SPECIMEN Performed By: #### 2 4344-4 ####[facility] LABORATORYCLIA [id number] [address] Potassium [Moles/Vol] 3.6 mmol/L Normal 3.5-5.0 [facility] Comment on above: Order Comment: Speci men Type: VENOUS BLOOD SPECIMEN Performed By: #### 2 4344-4 ####[facility] LABORATORYCLIA [id number] [address] SET VENTILATOR RESPIRATORY RATE (BPM) 18 BPM Normal [facility] Comment on above: Order Comment: Speci men Type: VENOUS BLOOD SPECIMEN Performed By: #### 2 4344-4 ####[facility] LABORATORYCLIA [id number] [address] Sodium [Moles/Vol] 141 mmol/L Normal 136-144 [facility] Comment on above: Order Comment: Speci men Type: VENOUS BLOOD SPECIMEN Performed By: #### 2 4344-4 ####[facility] LABORATORYCLIA [id number] [address] HIV 1+2 Ab IA Qlon 2 HIV 1 and 2 Ab IA.rapid Nom Normal [facility] Comment on above: Order Comment: Speci men Type: BLOOD SPECIMEN Result Comment: Test not indicated. Performed By: #### 3 1201-7, TOXMG ####[facility] LABORATORYCLIA [id number] [address] HIV 1+2 Ab+HIV1 p24 Ag IA Ql Non-Reactive Normal Nonreactive [facility] Comment on above: Order Comment: Speci men Type: BLOOD SPECIMEN Result Comment: [place] Rev. Code 3701.243(E): This information has been [...] diagnoses. Performed By: #### 3 1201-7, TOXMG ####[facility] LABORATORYCLIA [id number] [address] HIVINT Normal [facility] Comment on above: Order Comment: Speci men Type: BLOOD SPECIMEN Result Comment: No e vidence of HIV-1 or HIV-2 infection. Should recent infection be suspected, repeat testing may be considered 2-3 weeks after this draw. Performed By: #### 3 1201-7, TOXMG ####[facility] LABORATORYCLIA [id number] [address] Magnesium SerPl-mCncon 06-03 Magnesium [Mass/Vol] 1.9 mg/dL Normal 1.7-2.3 [facility] Comment on above: Order Comment: Speci men Type: BLOOD SPECIMEN Performed By: #### 1 9123-9, 2777-1, 74928-0 ####[facility] LABORATORYCLIA [id number] [address] NUTRITIONon 06-03-2021 NUTRITION Normal [facility] Phosphate SerPl-mCncon 06-03 Phosphate [Mass/Vol] 1.9 mg/dL Low 2.7-4.8 [facility] Comment on above: Order Comment: Speci men Type: BLOOD SPECIMEN Performed By: #### 1 9123-9, 2777-1, 72102-0 ####[facility] LABORATORYCLIA [id number] [address] TOXOPLASMOSIS IGM AND IGG AB on 06-03-2021 TOXO IGG QUAL Negative Normal Negative [facility] Comment on above: Order Comment: Speci men Type: BLOOD SPECIMEN Result Comment: No s erological evidence of past exposure to Toxoplasma gondii. Cannot exclude recent infection if the specimen collected within 3-4 weeks after infection.Negative <6.4 IU/mLEquivocal 6.4-9.9 IU/mLPositive >=10.0 IU/mL Performed By: #### 3 1201-7, TOXMG ####[facility] LABORATORYCLIA [id number] [address] [place] TOXO IGM QUAL Negative Normal Negative [facility] Comment on above: Order Comment: Speci men Type: BLOOD SPECIMEN Result Comment: No s erological evidence of recent exposure to Toxoplasma gondii.Negative <0.9 IndexEquivocal 0.9-0.99 IndexPositive >=1.0 Index Performed By: #### 3 1201-7, TOXMG ####[facility] LABORATORYCLIA [id number] [address] [place] US DVT LOWER BILon US DVT LOWER RAINER Normal [facility] XR CHEST 1V FRONTALon 2021 XR CHEST 1V FRONTAL Normal [facility] ARTERIAL BLOOD GASESon 06-02 Base excess Calc (Bld) [Moles/Vol] 2 mmol/L Normal 0-2 [facility] Comment on above: Order Comment: Speci men Type: ARTERIAL BLOOD SPECIMEN Performed By: #### A LLBG ####[facility] LABORATORYCLIA [id number] [address] STATES OF [facility] Body temperature 99.32 [degF] Normal [facility] Comment on above: Order Comment: Speci men Type: ARTERIAL BLOOD SPECIMEN Performed By: #### A LLBG ####[facility] LABORATORYCLIA [id number] [address] STATES [facility] CALCIUM IONIZED, PH CORRECTED 1.15 mmol/L Normal 1.08-1.30 [facility] Comment on above: Order Comment: Speci men Type: ARTERIAL BLOOD SPECIMEN Performed By: #### A LLBG ####[facility] LABORATORYCLIA [id number] [address] [place] Calcium.ionized (BldV) [Mass/Vol] 1.13 mmol/L Normal 1.08-1.30 [facility] Comment on above: Order Comment: Speci men Type: ARTERIAL BLOOD SPECIMEN Performed By: #### A LLBG ####[facility] LABORATORYCLIA [id number] [address] Carboxyhemoglobin (BldA) [Mass fraction] 1.4 % Normal 0.0-2.0 [facility] Comment on above: Order Comment: Speci men Type: ARTERIAL BLOOD SPECIMEN Result Comment: Carb oxyhemoglobin Reference Range for Smokers: 2.0-8.0% Performed By: #### A LLBG ####[facility]ATORYCLIA [id number] [address] CO2 (Bld) [Partial pressure] 39 mm Hg Normal 36-46 [facility] Comment on above: Order Comment: Speci men Type: ARTERIAL BLOOD SPECIMEN Performed By: #### A LLBG ####[facility]ORATORYCLIA [id number] [address] CO2 [Moles/Vol] 23.4 mmol/L Normal 22-28 [facility] Comment on above: Order Comment: Speci men Type: ARTERIAL BLOOD SPECIMEN Performed By: #### A LLBG ####[facility]ORATORYCLIA [id number] [address] CO2 adjusted to patient's actual temperature (Bld) [Partial pressure] 40 mmHg Normal 36-46 [facility] Comment on above: Order Comment: Speci men Type: ARTERIAL BLOOD SPECIMEN Performed By: #### A LLBG ####[facility]ORATORYCLIA [id number] [address] OF [facility] Glucose [Mass/Vol] 156 mg/dL High 60-105 [facility] Comment on above: Order Comment: Speci men Type: ARTERIAL BLOOD SPECIMEN Performed By: #### A LLBG ####[facility]ORATORYCLIA [id number] [address] HCO3 (Bld) [Moles/Vol] 26 mmol/L Normal 22-26 [facility] Comment on above: Order Comment: Speci men Type: ARTERIAL BLOOD SPECIMEN Performed By: #### A LLBG ####[facility]ORATORYCLIA [id number] [address] Hematocrit (Bld) [Volume fraction] 33.9 % Low 39.0-51.0 [facility] Comment on above: Order Comment: Speci men Type: ARTERIAL BLOOD SPECIMEN Performed By: #### A LLBG ####[facility]ATORYCLIA [id number] [address] Hemoglobin (Bld) [Mass/Vol] 11.0 g/dL Low 13.0-17.0 [facility] Comment on above: Order Comment: Speci men Type: ARTERIAL BLOOD SPECIMEN Performed By: #### A LLBG ####[facility]ATORYCLIA [id number] [address] Methemoglobin (Bld) [Mass fraction] % Normal 0.0-1.5 [facility] Comment on above: Order Comment: Speci men Type: ARTERIAL BLOOD SPECIMEN Performed By: #### A LLBG ####[facility]ORATORYCLIA [id number] [address] O2 THERAPY Ventilator Normal [facility] Comment on above: Order Comment: Speci men Type: ARTERIAL BLOOD SPECIMEN Performed By: #### A LLBG ####[facility]ORATORYCLIA [id number] [address] Oxygen (Bld) [Partial pressure] 70 mm Hg Low 85-95 [facility] Comment on above: Order Comment: Speci men Type: ARTERIAL BLOOD SPECIMEN Performed By: #### A LLBG ####[facility]ATORYCLIA [id number] [address] Oxygen adjusted to patient's actual temperature (Bld) [Partial pressure] 72.2 mmHg Low 85-95 [facility] Comment on above: Order Comment: Speci men Type: ARTERIAL BLOOD SPECIMEN Performed By: #### A LLBG ####[facility]ATORYCLIA [id number] [address] [place] OXYGEN SATURATION, ARTERIAL 96 % Normal 95-98 [facility] Comment on above: Order Comment: Speci men Type: ARTERIAL BLOOD SPECIMEN Performed By: #### A LLBG ####[facility] LABORATORYCLIA [id number] [address] Oxyhemoglobin (BldA) [Mass fraction] 94 % Low 95-98 [facility] Comment on above: Order Comment: Speci men Type: ARTERIAL BLOOD SPECIMEN Performed By: #### A LLBG ####[facility]ORATORYCLIA [id number] [address] pH (Bld) 7.43 [pH] Normal 7.35-7.45 [facility] Comment on above: Order Comment: Speci men Type: ARTERIAL BLOOD SPECIMEN Performed By: #### A LLBG ####[facility] LABORATORYCLIA [id number] [address] pH adjusted to patient's actual temperature (Bld) 7.42 Normal 7.35-7.45 [facility] Comment on above: Order Comment: Speci men Type: ARTERIAL BLOOD SPECIMEN Performed By: #### A LLBG ####[facility] LABORATORYCLIA [id number] [address] Potassium [Moles/Vol] 2.6 mmol/L Low 3.5-5.0 [facility] Comment on above: Order Comment: Speci men Type: ARTERIAL BLOOD SPECIMEN Performed By: #### A LLBG ####[facility] LABORATORYCLIA [id number] [address] Sodium [Moles/Vol] 142 mmol/L Normal 136-144 [facility] Comment on above: Order Comment: Speci men Type: ARTERIAL BLOOD SPECIMEN Performed By: #### A LLBG ####[facility]ORATORYCLIA [id number] [address] Ammonia Plas-sCncon 06-02-19 22 Ammonia (P) [Moles/Vol] 20 umol/L Normal 16-60 [facility] Comment on above: Order Comment: Speci men Type: BLOOD SPECIMEN Performed By: #### 1 6362-6 ####[facility] LABORATORYCLIA [id number] [address] STATES [facility] Bacteria CSF Culton 06-02-19 22 Bacteria identified Cx Nom (CSF) CULTURE, CSF: No growth 14 days GRAM STAIN: No organisms seen Rare Polymorphonuclear leukocytes Gram stain performed on cytospun specimen. Normal [facility] Comment on above: Performed By: #### 6 06-4 ####[facility] LABORATORYCLIA [id number] [address] OF [facility] Basic metabolic 2000 panelon 06-02-2021 Anion gap [Moles/Vol] 10 mmol/L Normal 9-18 [facility] Comment on above: Order Comment: Speci men Type: BLOOD SPECIMEN Performed By: #### 2 4321-2, , 2776-05 ####[facility] LABORATORYCLIA [id number] [address] STATES [facility] Calcium [Mass/Vol] 8.1 mg/dL Low 8.5-10.2 [facility] Comment on above: Order Comment: Speci men Type: BLOOD SPECIMEN Performed By: #### 2 4321-2, , 2776-05 ####[facility] LABORATORYCLIA [id number] [address] STATES [facility] Chloride [Moles/Vol] 108 mmol/L High 97-105 [facility] Comment on above: Order Comment: Speci men Type: BLOOD SPECIMEN Performed By: #### 2 4321-2, , 2776-05 ####[facility] LABORATORYCLIA [id number] [place] [address] [place] CO2 [Moles/Vol] 24 mmol/L Normal 22-30 [facility] Comment on above: Order Comment: Speci men Type: BLOOD SPECIMEN Performed By: #### 2 4321-2, , 2776-05 ####[facility] LABORATORYCLIA [id number] [address] [place] Creatinine [Mass/Vol] 0.78 mg/dL Normal 0.73-1.22 [facility] Comment on above: Order Comment: [facility] Type: BLOOD SPECIMEN Performed By: #### 2 4321-2, 62951-3, 2777-1 ####[facility] LABORATORYCLIA [id number] [place] [id number] [place] GFR/1.73 sq M.predicted MDRD (S/P/Bld) [Vol rate/Area] mL/min/{1.73_m2} Normal [facility] Comment on above: [...] actual GFR. Performed By: #### 2 4321-2, 05201-4, 2771 ####[facility] LABORATORYCLIA [id number] [place] [address] [place] Glucose [Mass/Vol] 162 mg/dL High 74-99 [facility] Comment on above: Order Comment: [facility] Type: BLOOD SPECIMEN Result Comment: The [place] [employer] (ADA) provides guidance for cutoff [...] Standards of Medical Care in Diabetes 2016, [place] [employer]. Diabetes Care. 2016.39(Suppl 1). Performed By: #### 2 4321-2, , 2776-05 ####[facility] LABORATORYCLIA [id number] [address] Potassium [Moles/Vol] 2.7 mmol/L Low 3.7-5.1 [facility] Comment on above: Order Comment: Speci men Type: BLOOD SPECIMEN Performed By: #### 2 4321-2, , 2776-05 ####[facility] LABORATORYCLIA [id number] [address] Sodium [Moles/Vol] 142 mmol/L Normal 136-144 [facility] Comment on above: Order Comment: Speci men Type: BLOOD SPECIMEN Performed By: #### 2 4321-2, , 2776-05 ####[facility] LABORATORYCLIA [id number] [address] Urea nitrogen [Mass/Vol] 12 mg/dL Normal 9-24 [facility] Comment on above: Order Comment: Speci men Type: BLOOD SPECIMEN Performed By: #### 2 4321-2, , 2776-05 ####[facility] LABORATORYCLIA [id number] [address] CBC panel Auto (Bld)on 06-02 Erythrocyte distribution width (RBC) [Ratio] 15.0 % Normal 11.5-15.0 [facility] Comment on above: Order Comment: Speci men Type: BLOOD SPECIMEN Performed By: #### 5 8410-2 ####[facility] LABORATORYCLIA [id number] [address] Hematocrit (Bld) [Volume fraction] 34.3 % Low 39.0-51.0 [facility] Comment on above: Order Comment: Speci men Type: BLOOD SPECIMEN Performed By: #### 5 8410-2 ####[facility] LABORATORYCLIA [id number] [address] Hemoglobin (Bld) [Mass/Vol] 10.3 g/dL Low 13.0-17.0 [facility] Comment on above: Order Comment: Speci men Type: BLOOD SPECIMEN Performed By: #### 5 8410-2 ####[facility] LABORATORYCLIA [id number] [address] MCH (RBC) [Entitic mass] 27.0 pg Normal 26.0-34.0 [facility] Comment on above: Order Comment: Speci men Type: BLOOD SPECIMEN Performed By: #### 5 8410-2 ####[facility] LABORATORYCLIA [id number] [address] MCHC (RBC) [Mass/Vol] 30.0 g/dL Low 30.5-36.0 [facility] Comment on above: Order Comment: Speci men Type: BLOOD SPECIMEN Performed By: #### 5 8410-2 ####[facility] LABORATORYCLIA [id number] [address] MCV (RBC) [Entitic vol] 90.0 fL Normal 80.0-100.0 [facility] Comment on above: Order Comment: Speci men Type: BLOOD SPECIMEN Performed By: #### 5 8410-2 ####[facility] LABORATORYCLIA [id number] [address] Nucleated RBC (Bld) [#/Vol] 10*3/uL Normal <0.01 [facility] Comment on above: Order Comment: Speci men Type: BLOOD SPECIMEN Performed By: #### 5 8410-2 ####[facility] LABORATORYCLIA [id number] [address] Platelet mean volume (Bld) [Entitic vol] 10.2 fL Normal 9.0-12.7 [facility] Comment on above: Order Comment: Speci men Type: BLOOD SPECIMEN Performed By: #### 5 8410-2 ####[facility] LABORATORYCLIA [id number] [address] Platelets (Bld) [#/Vol] 194 10*3/uL Normal 150-400 [facility] Comment on above: Order Comment: Speci men Type: BLOOD SPECIMEN Performed By: #### 5 8410-2 ####[facility] LABORATORYCLIA [id number] [address] OF [facility] RBC (Bld) [#/Vol] 3.81 10*6/uL Low 4.20-6.00 [facility] Comment on above: Order Comment: Speci men Type: BLOOD SPECIMEN Performed By: #### 5 8410-2 ####[facility] LABORATORYCLIA [id number] [address] WBC (Bld) [#/Vol] 9.22 10*3/uL Normal 3.70-11.00 [facility] Comment on above: Order Comment: Speci men Type: BLOOD SPECIMEN Performed By: #### 5 8410-2 ####[facility] LABORATORYCLIA [id number] [address] CONSULT PROGon 06-02-2021 CONSULT PROG Normal [facility] CSF MANUAL DIFFon 06-02-2021 DIF TTL, CSF 25 cells counted Normal [facility] Comment on above: Order Comment: Speci men Type: CEREBROSPINAL FLUID Performed By: #### 3 4563-7, [id number], [id number] ####[facility] LABORATORYCLIA [id number] [address] OF [facility] LYMPH%, CSF 4 % Low 50-90 [facility] Comment on above: Order Comment: Speci men Type: CEREBROSPINAL FLUID Performed By: #### 3 4563-7, [id number], [id number] ####[facility]ORATORYCLIA [id number] [address] OF [facility] MACRO%, CSF 4 % High <1 [facility] Comment on above: Order Comment: Speci men Type: CEREBROSPINAL FLUID Performed By: #### 3 4563-7, [id number], [id number] ####[facility]ORATORYCLIA [id number] [address] [place] MONO%, CSF 20 % Normal 10-50 [facility] Comment on above: Order Comment: Speci men Type: CEREBROSPINAL FLUID Performed By: #### 3 4563-7, [id number], [id number] ####[facility] [facility]ORATORYCLIA [id number] [address] [place] NEUT%, CSF 72 % High 0-3 [facility] Comment on above: Order Comment: Speci men Type: CEREBROSPINAL FLUID Performed By: #### 3 4563-7, [id number], [id number] ####[facility] LABORATORYCLIA [id number] [address] CSF PATHOLOGIST INTERP (LAB REFLEX ORDER-NO BILL)on 06-02-2021 CSF STAFF REVIEW Negative Normal [facility] Comment on above: Order Comment: Speci men Type: CEREBROSPINAL FLUID Performed By: #### 3 4563-7, [id number], [id number] ####[facility] LABORATORYCLIA [id number] [address] Pathologist name Reviewed by Amador Stevens MD Normal [facility] Comment on above: Order Comment: Speci men Type: CEREBROSPINAL FLUID Performed By: #### 3 4563-7, [id number], [id number] ####[facility]ATORYCLIA [id number] [address] Cell count panel (CSF)on Clarity (CSF) Clear Normal Clear [facility] Comment on above: Order Comment: Speci men Type: CEREBROSPINAL FLUID Performed By: #### 3 4563-7, [id number], [id number] ####[facility]ATORYCLIA [id number] [address] Clarity (Unsp spec) Not Indicated Normal Clear [facility] Comment on above: Order Comment: Speci men Type: CEREBROSPINAL FLUID Performed By: #### 3 4563-7, [id number], [id number] ####[facility]ORYCLIA [id number] [address] Color (CSF) Colorless Normal Colorless [facility] Comment on above: Order Comment: Speci men Type: CEREBROSPINAL FLUID Performed By: #### 3 4563-7, [id number], [id number] ####[facility] LABORATORYCLIA [id number] [address] Color (Spun CSF) Not Indicated Normal Colorless [facility] Comment on above: Order Comment: Speci men Type: CEREBROSPINAL FLUID Performed By: #### 3 4563-7, [id number], [id number] ####[facility] LABORATORYCLIA [id number] [address] CSF TUBE NUMBER Sterile Container Normal [facility] Comment on above: Order Comment: Speci men Type: CEREBROSPINAL FLUID Performed By: #### 3 4563-7, [id number], [id number] ####[facility] LABORATORYCLIA [id number] [address] RBC Manual cnt (CSF) [#/Vol] 117 cells/uL High 0-5 [facility] Comment on above: Order Comment: Speci men Type: CEREBROSPINAL FLUID Performed By: #### 3 4563-7, [id number], [id number] ####[facility] LABORATORYCLIA [id number] [address] WBC Manual cnt (CSF) [#/Vol] 1 cells/uL Normal 0-5 [facility] Comment on above: Order Comment: Speci men Type: CEREBROSPINAL FLUID Performed By: #### 3 4563-7, [id number], [id number] ####[facility] LABORATORYCLIA [id number] [address] OF [facility] Glucose CSF-ncon 2 Glucose (CSF) [Mass/Vol] 82 mg/dL High 40-70 [facility] Comment on above: Order Comment: Speci men Type: CEREBROSPINAL FLUID Result Comment: Lumb ar CSF glucose values of healthy patients are approximately 60% of the plasma values and must always be compared with a concurrently measured plasma value for adequate clinical interpretation.References: 1. Glucose HK (GLUC3) [package insert V 12.0 [place]]. [employer], [place], [place]. September 2015. 2. Michelle Moore, Loki, H. (2015). Chapter 7: Glucose and Lactate. Marianela Alcocer al.(eds.), Cerebrospinal Fluid in Clinical Neurology. [place]: [place] [address]. Performed By: #### 2 342-4 ####[facility]ATORYCLIA [id number] [address] HEPATIC FUNCTION PNLon 06-02 Albumin [Mass/Vol] 3.2 g/dL Low 3.9-4.9 [facility] Comment on above: Order Comment: Speci men Type: BLOOD SPECIMEN Performed By: #### H FP, 75936-3 ####[facility] LABORATORYCLIA [id number] [address] ALP [Catalytic activity/Vol] 67 U/L Normal 38-113 [facility] Comment on above: Order Comment: Speci men Type: BLOOD SPECIMEN Performed By: #### [place], 78331-3 ####[facility]ORATORYCLIA [id number] [address] ALT With P-5'-P [Catalytic activity/Vol] 16 U/L Normal 10-54 [facility] Comment on above: Order Comment: Speci men Type: BLOOD SPECIMEN Performed By: #### H FP, 65996-7 ####[facility]ORATORYCLIA [id number] [address] AST With P-5'-P [Catalytic activity/Vol] 25 U/L Normal 14-40 [facility] Comment on above: Order Comment: Speci men Type: BLOOD SPECIMEN Performed By: #### H FP, 31008-1 ####[facility]ATORYCLIA [id number] [address] [facility] Bilirubin [Mass/Vol] 0.2 mg/dL Normal 0.2-1.3 [facility] Comment on above: Order Comment: Speci men Type: BLOOD SPECIMEN Performed By: #### Marin KATHIE, 12959-5 ####[facility] LABORATORYCLIA [id number] [address] Bilirubin.conjugated [Mass/Vol] mg/dL Normal <0.2 [facility] Comment on above: Order Comment: Speci men Type: BLOOD SPECIMEN Performed By: #### Marin KATHIE, 00316-1 ####[facility]ORATORYCLIA [id number] [address] Protein [Mass/Vol] 5.8 g/dL Low 6.3-8.0 [facility] Comment on above: Order Comment: Speci men Type: BLOOD SPECIMEN Performed By: #### Marin KATHIE, 69528-8 ####[facility] LABORATORYCLIA [id number] [address] MRI BRAIN WO/W IVCONon 06-02 MRI BRAIN WO/W IVCON Normal [facility] Magnesium [facility] Magnesium [Mass/Vol] 2.0 mg/dL Normal 1.7-2.3 [facility] Comment on above: Order Comment: Speci men Type: BLOOD SPECIMEN Performed By: #### 2 4321-2, 58060-5, 2777-1 ####[facility] LABORATORYCLIA [id number] [address] NT-proBNP SerPl-ncon 06-02 Natriuretic peptide.B prohormone N-Terminal [Mass/Vol] 296 pg/mL High <125 [facility] Comment on above: Order Comment: Speci men Type: BLOOD SPECIMEN Performed By: #### Marin KATHIE, 51422-1 ####[facility] LABORATORYCLIA [id number] [address] POTASSIUM BLDon 06-02-2021 Potassium [Moles/Vol] 3.2 mmol/L Low 3.7-5.1 [facility] Comment on above: Order Comment: Speci men Type: BLOOD SPECIMEN Performed By: #### K 1 ####[facility] LABORATORYCLIA [id number] [place] [address] [place] Phosphate SerPl-mCncon 06-02 Phosphate [Mass/Vol] 2.1 mg/dL Low 2.7-4.8 [facility] Comment on above: Order Comment: Speci men Type: BLOOD SPECIMEN Performed By: #### 2 4321-2, 09240-6, 2777-1 ####[facility] LABORATORYCLIA [id number] [address] [place] Vancomycin random [Mass/Vol] on 06-02-2021 Vancomycin [Mass/Vol] 18.8 ug/mL Normal 10.0-20.0 [facility] Comment on above: Order Comment: Speci men Type: BLOOD SPECIMEN Result Comment: Refe rence ranges and high/low indicator flags are provided as general guidelines only. The treating physician must determine appropriate target levels/dosing based on the specific clinical situation. Performed By: #### 4 091-5 ####[facility] LABORATORYCLIA [id number] [address] [place] ALLIED HEALTHon 06-01-2021 ALLIED HEALTH Normal [facility] ALLIED HEALTH Normal [facility] ALLIED HEALTH Normal [facility] ARTERIAL BLOOD GASESon 06-01 Base excess Calc (Bld) [Moles/Vol] 1 mmol/L Normal 0-2 [facility] Comment on above: Order Comment: Speci men Type: ARTERIAL BLOOD SPECIMEN Performed By: #### A LLBG ####[facility] LABORATORYCLIA [id number] [address] [place] Body temperature 97.52 [degF] Normal [facility] Comment on above: Order Comment: Speci men Type: ARTERIAL BLOOD SPECIMEN Performed By: #### A LLBG ####[facility] LABORATORYCLIA [id number] [address] [place] CALCIUM IONIZED, PH CORRECTED 1.13 mmol/L Normal 1.08-1.30 [facility] Comment on above: Order Comment: Speci men Type: ARTERIAL BLOOD SPECIMEN Performed By: #### A LLBG ####[facility]ATORYCLIA [id number] [address] Calcium.ionized (BldV) [Mass/Vol] 1.12 mmol/L Normal 1.08-1.30 [facility] Comment on above: Order Comment: Speci men Type: ARTERIAL BLOOD SPECIMEN Performed By: #### A LLBG ####[facility]ATORYCLIA [id number] [address] Carboxyhemoglobin (BldA) [Mass fraction] 1.6 % Normal 0.0-2.0 [facility] Comment on above: Order Comment: Speci men Type: ARTERIAL BLOOD SPECIMEN Result Comment: Carb oxyhemoglobin Reference Range for Smokers: 2.0-8.0% Performed By: #### A LLBG ####[facility]ATORYCLIA [id number] [address] CO2 (Bld) [Partial pressure] 41 mm Hg Normal 36-46 [facility] Comment on above: Order Comment: Speci men Type: ARTERIAL BLOOD SPECIMEN Performed By: #### A LLBG ####[facility]ATORYCLIA [id number] [address] CO2 [Moles/Vol] 23.0 mmol/L Normal 22-28 [facility] Comment on above: Order Comment: Speci men Type: ARTERIAL BLOOD SPECIMEN Performed By: #### A LLBG ####[facility]ATORYCLIA [id number] [address] CO2 adjusted to patient's actual temperature (Bld) [Partial pressure] 40 mmHg Normal 36-46 [facility] Comment on above: Order Comment: Speci men Type: ARTERIAL BLOOD SPECIMEN Performed By: #### A LLBG ####[facility]ORYCLIA [id number] [address] FIO2 40 % Normal [facility] Comment on above: Order Comment: Speci men Type: ARTERIAL BLOOD SPECIMEN Performed By: #### A LLBG ####[facility]ORYCLIA [id number] [address] [place] Glucose [Mass/Vol] 127 mg/dL High 60-105 [facility] Comment on above: Order Comment: Speci men Type: ARTERIAL BLOOD SPECIMEN Performed By: #### A LLBG ####[facility]ORYCLIA [id number] [address] HCO3 (Bld) [Moles/Vol] 25 mmol/L Normal 22-26 [facility] Comment on above: Order Comment: Speci men Type: ARTERIAL BLOOD SPECIMEN Performed By: #### A LLBG ####[facility]ORYCLIA [id number] [address] Hematocrit (Bld) [Volume fraction] 33.7 % Low 39.0-51.0 [facility] Comment on above: Order Comment: Speci men Type: ARTERIAL BLOOD SPECIMEN Performed By: #### A LLBG ####[facility]ORYCLIA [id number] [address] [facility] Hemoglobin (Bld) [Mass/Vol] 10.9 g/dL Low 13.0-17.0 [facility] Comment on above: Order Comment: Speci men Type: ARTERIAL BLOOD SPECIMEN Performed By: #### A LLBG ####[facility]ORYCLIA [id number] [address] INHALED TIDAL VOLUME (ML) 500 Normal [facility] Comment on above: Order Comment: Speci men Type: ARTERIAL BLOOD SPECIMEN Performed By: #### A LLBG ####[facility]ORYCLIA [id number] [address] INVASIVE VENTILATOR MODE PRVC=Pressure Regulated Volume Control Normal [facility] Comment on above: Order Comment: Speci men Type: ARTERIAL BLOOD SPECIMEN Performed By: #### A LLBG ####[facility]ORYCLIA [id number] [address] Methemoglobin (Bld) [Mass fraction] % Normal 0.0-1.5 [facility] Comment on above: Order Comment: Speci men Type: ARTERIAL BLOOD SPECIMEN Performed By: #### A LLBG ####[facility]ORYCLIA [id number] [address] O2 THERAPY Ventilator Normal [facility] Comment on above: Order Comment: Speci men Type: ARTERIAL BLOOD SPECIMEN Performed By: #### A LLBG ####[facility]ORYCLIA [id number] [address] Oxygen (Bld) [Partial pressure] 64 mm Hg Low 85-95 [facility] Comment on above: Order Comment: Speci men Type: ARTERIAL BLOOD SPECIMEN Performed By: #### A LLBG ####[facility]ORYCLIA [id number] [address] Oxygen adjusted to patient's actual temperature (Bld) [Partial pressure] 61.8 mmHg Low 85-95 [facility] Comment on above: Order Comment: Speci men Type: ARTERIAL BLOOD SPECIMEN Performed By: #### A LLBG ####[facility]ORYCLIA [id number] [address] [place] OXYGEN SATURATION, ARTERIAL 94 % Low 95-98 [facility] Comment on above: Order Comment: Speci men Type: ARTERIAL BLOOD SPECIMEN Performed By: #### A LLBG ####[facility]ORYCLIA [id number] [address] [place] Oxyhemoglobin (BldA) [Mass fraction] 92 % Low 95-98 [facility] Comment on above: Order Comment: Speci men Type: ARTERIAL BLOOD SPECIMEN Performed By: #### A LLBG ####[facility]ORYCLIA [id number] [address] [place] PEEP/CPAP 5 cmH2O Normal [facility] Comment on above: Order Comment: Speci men Type: ARTERIAL BLOOD SPECIMEN Performed By: #### A LLBG ####[facility]ORYCLIA [id number] [address] pH (Bld) 7.40 [pH] Normal 7.35-7.45 [facility] Comment on above: Order Comment: Speci men Type: ARTERIAL BLOOD SPECIMEN Performed By: #### A LLBG ####[facility]ORYCLIA [id number] [address] pH adjusted to patient's actual temperature (Bld) 7.41 Normal 7.35-7.45 [facility] Comment on above: Order Comment: Speci men Type: ARTERIAL BLOOD SPECIMEN Performed By: #### A LLBG ####[facility]ORYCLIA [id number] [address] Potassium [Moles/Vol] 3.1 mmol/L Low 3.5-5.0 [facility] Comment on above: Order Comment: Speci men Type: ARTERIAL BLOOD SPECIMEN Performed By: #### A LLBG ####[facility]ORYCLIA [id number] [address] SET VENTILATOR RESPIRATORY RATE (BPM) 18 BPM Normal [facility] Comment on above: Order Comment: Speci men Type: ARTERIAL BLOOD SPECIMEN Performed By: #### A LLBG ####[facility]ORYCLIA [id number] [address] Sodium [Moles/Vol] 141 mmol/L Normal 136-144 [facility] Comment on above: Order Comment: Speci men Type: ARTERIAL BLOOD SPECIMEN Performed By: #### A LLBG ####[facility]ORYCLIA [id number] [address] [place] BASE DEFICIT, ARTERIAL -1.0 mmol/L Normal -2-0 [facility] Comment on above: Order Comment: Speci men Type: ARTERIAL BLOOD SPECIMEN Performed By: #### A LLBG ####[facility]ORYCLIA [id number] [address] Body temperature 98.24 [degF] Normal [facility] Comment on above: Order Comment: Speci men Type: ARTERIAL BLOOD SPECIMEN Performed By: #### A LLBG ####[facility]ORYCLIA [id number] [address] CALCIUM IONIZED, PH CORRECTED 1.08 mmol/L Normal 1.08-1.30 [facility] Comment on above: Order Comment: Speci men Type: ARTERIAL BLOOD SPECIMEN Performed By: #### A LLBG ####[facility]ORYCLIA [id number] [address] Calcium.ionized (BldV) [Mass/Vol] 1.15 mmol/L Normal 1.08-1.30 [facility] Comment on above: Order Comment: Speci men Type: ARTERIAL BLOOD SPECIMEN Performed By: #### A LLBG ####[facility]ORYCLIA [id number] [address] Carboxyhemoglobin (BldA) [Mass fraction] 1.4 % Normal 0.0-2.0 [facility] Comment on above: Order Comment: Speci men Type: ARTERIAL BLOOD SPECIMEN Result Comment: Carb oxyhemoglobin Reference Range for Smokers: 2.0-8.0% Performed By: #### A LLBG ####[facility]ATORYCLIA [id number] [address] CO2 (Bld) [Partial pressure] 59 mm Hg High 36-46 [facility] Comment on above: Order Comment: Speci men Type: ARTERIAL BLOOD SPECIMEN Performed By: #### A LLBG ####[facility]ORYCLIA [id number] [address] CO2 [Moles/Vol] 24.5 mmol/L Normal 22-28 [facility] Comment on above: Order Comment: Speci men Type: ARTERIAL BLOOD SPECIMEN Performed By: #### A LLBG ####[facility]ORYCLIA [id number] [address] CO2 adjusted to patient's actual temperature (Bld) [Partial pressure] 58 mmHg High 36-46 [facility] Comment on above: Order Comment: Speci men Type: ARTERIAL BLOOD SPECIMEN Performed By: #### A LLBG ####[facility]ORYCLIA [id number] [address] FIO2 40 % Normal [facility] Comment on above: Order Comment: Speci men Type: ARTERIAL BLOOD SPECIMEN Performed By: #### A LLBG ####[facility]ORYCLIA [id number] [address] Glucose [Mass/Vol] 128 mg/dL High 60-105 [facility] Comment on above: Order Comment: Speci men Type: ARTERIAL BLOOD SPECIMEN Performed By: #### A LLBG ####[facility]ORYCLIA [id number] [address] HCO3 (Bld) [Moles/Vol] 26 mmol/L Normal 22-26 [facility] Comment on above: Order Comment: Speci men Type: ARTERIAL BLOOD SPECIMEN Performed By: #### A LLBG ####[facility]ORYCLIA [id number] [address] [place] Hematocrit (Bld) [Volume fraction] 35.6 % Low 39.0-51.0 [facility] Comment on above: Order Comment: Speci men Type: ARTERIAL BLOOD SPECIMEN Performed By: #### A LLBG ####[facility]ORYCLIA [id number] [address] [place] Hemoglobin (Bld) [Mass/Vol] 11.5 g/dL Low 13.0-17.0 [facility] Comment on above: Order Comment: Speci men Type: ARTERIAL BLOOD SPECIMEN Performed By: #### A LLBG ####[facility]ORYCLIA [id number] [address] INHALED TIDAL VOLUME (ML) 500 Normal [facility] Comment on above: Order Comment: Speci men Type: ARTERIAL BLOOD SPECIMEN Performed By: #### A LLBG ####[facility]ORYCLIA [id number] [address] INVASIVE VENTILATOR MODE PRVC=Pressure Regulated Volume Control Normal [facility] Comment on above: Order Comment: Speci men Type: ARTERIAL BLOOD SPECIMEN Performed By: #### A LLBG ####[facility]ORYCLIA [id number] [address] Methemoglobin (Bld) [Mass fraction] % Normal 0.0-1.5 [facility] Comment on above: Order Comment: Speci men Type: ARTERIAL BLOOD SPECIMEN Performed By: #### A LLBG ####[facility]ORYCLIA [id number] [address] O2 THERAPY Ventilator Normal [facility] Comment on above: Order Comment: Speci men Type: ARTERIAL BLOOD SPECIMEN Performed By: #### A LLBG ####[facility]ORYCLIA [id number] [address] Oxygen (Bld) [Partial pressure] 88 mm Hg Normal 85-95 [facility] Comment on above: Order Comment: Speci men Type: ARTERIAL BLOOD SPECIMEN Performed By: #### A LLBG ####[facility]ORYCLIA [id number] [address] [facility] Oxygen adjusted to patient's actual temperature (Bld) [Partial pressure] 86.5 mmHg Normal 85-95 [facility] Comment on above: Order Comment: Speci men Type: ARTERIAL BLOOD SPECIMEN Performed By: #### A LLBG ####[facility]ORYCLIA [id number] [address] [place] OXYGEN SATURATION, ARTERIAL 95 % Normal 95-98 [facility] Comment on above: Order Comment: Speci men Type: ARTERIAL BLOOD SPECIMEN Performed By: #### A LLBG ####[facility]ORYCLIA [id number] [address] [facility] Oxyhemoglobin (BldA) [Mass fraction] 93 % Low 95-98 [facility] Comment on above: Order Comment: Speci men Type: ARTERIAL BLOOD SPECIMEN Performed By: #### A LLBG ####[facility]ORYCLIA [id number] [address] PEEP/CPAP 5 cmH2O Normal [facility] Comment on above: Order Comment: Speci men Type: ARTERIAL BLOOD SPECIMEN Performed By: #### A LLBG ####[facility]ORYCLIA [id number] [address] [place] pH (Bld) 7.27 [pH] Low 7.35-7.45 [facility] Comment on above: Order Comment: Speci men Type: ARTERIAL BLOOD SPECIMEN Performed By: #### A LLBG ####[facility]ORYCLIA [id number] [address] pH adjusted to patient's actual temperature (Bld) 7.28 Low 7.35-7.45 [facility] Comment on above: Order Comment: Speci men Type: ARTERIAL BLOOD SPECIMEN Performed By: #### A LLBG ####[facility]ORYCLIA [id number] [address] Potassium [Moles/Vol] 3.3 mmol/L Low 3.5-5.0 [facility] Comment on above: Order Comment: Speci men Type: ARTERIAL BLOOD SPECIMEN Performed By: #### A LLBG ####[facility]ORYCLIA [id number] [address] SET VENTILATOR RESPIRATORY RATE (BPM) 14 BPM Normal [facility] Comment on above: Order Comment: Speci men Type: ARTERIAL BLOOD SPECIMEN Performed By: #### A LLBG ####[facility]ORYCLIA [id number] [address] [place] Sodium [Moles/Vol] 141 mmol/L Normal 136-144 [facility] Comment on above: Order Comment: Speci men Type: ARTERIAL BLOOD SPECIMEN Performed By: #### A LLBG ####[facility]ORYCLIA [id number] [address] [facility] Bacteria CSF Culton 06-01-19 22 Bacteria identified Cx Nom (CSF) CULTURE, CSF: No growth 14 days GRAM STAIN: No organisms seen Rare Polymorphonuclear leukocytes Moderate Red Blood Cells Gram stain performed on cytospun specimen. Normal [facility] Comment on above: Performed By: #### 6 06-4 ####[facility] LABORATORYCLIA [id number] [address] Bacteria Spec Resp Culton Bacteria identified Respiratory culture Nom (Unsp spec) CULTURE, RESPIRATORY: No growth 2 days GRAM STAIN: No organisms seen No Polymorphonuclear Leukocytes Normal [facility] Comment on above: Performed By: #### 3 2355-0 ####[facility] LABORATORYCLIA [id number] [address] Basic metabolic 2000 panelon 06-01-2021 Anion gap [Moles/Vol] 8 mmol/L Low 9-18 [facility] Comment on above: Order Comment: Speci men Type: BLOOD SPECIMEN Performed By: #### 2 4321-2, , 2776-05 ####[facility] LABORATORYCLIA [id number] [address] [facility] Calcium [Mass/Vol] 7.8 mg/dL Low 8.5-10.2 [facility] Comment on above: Order Comment: Speci men Type: BLOOD SPECIMEN Performed By: #### 2 4321-2, , 2776-05 ####[facility] LABORATORYCLIA [id number] [address] [facility] Chloride [Moles/Vol] 109 mmol/L High 97-105 [facility] Comment on above: Order Comment: Speci men Type: BLOOD SPECIMEN Performed By: #### 2 4321-2, , 2776-05 ####[facility] LABORATORYCLIA [id number] [address] [place] CO2 [Moles/Vol] 26 mmol/L Normal 22-30 [facility] Comment on above: Order Comment: Speci men Type: BLOOD SPECIMEN Performed By: #### 2 4321-2, , 2776-05 ####[facility] LABORATORYCLIA [id number] [place] [address] [place] Creatinine [Mass/Vol] 0.82 mg/dL Normal 0.73-1.22 [facility] Comment on above: Order Comment: Speci men Type: BLOOD SPECIMEN Performed By: #### 2 4321-2, 22275-9, 2776-05 ####[facility] LABORATORYCLIA [id number] [place] [address] [place] GFR/1.73 sq M.predicted MDRD (S/P/Bld) [Vol rate/Area] mL/min/{1.73_m2} Normal [facility] Comment on above: [...] By: #### 2 4321-2, , 2776-05 ####[facility] [id number] [place] [address] [place] Glucose [Mass/Vol] 105 mg/dL High 74-99 [facility] Comment on above: Order Comment: Speci men Type: BLOOD SPECIMEN Result Comment: The [place] [employer] (ADA) provides guidance for cutoff [...] Standards of Medical Care in Diabetes 2016, [place] [employer]. Diabetes Care. 2016.39(Suppl 1). Performed By: #### 2 4321-2, , 2776-05 ####[facility] LABORATORYCLIA [id number] [address] Potassium [Moles/Vol] 3.8 mmol/L Normal 3.7-5.1 [facility] Comment on above: Order Comment: Speci men Type: BLOOD SPECIMEN Performed By: #### 2 4321-2, , 2776-05 ####[facility] LABORATORYCLIA [id number] [address] Sodium [Moles/Vol] 143 mmol/L Normal 136-144 [facility] Comment on above: Order Comment: Speci men Type: BLOOD SPECIMEN Performed By: #### 2 4321-2, , 2776-05 ####[facility] LABORATORYCLIA [id number] [address] Urea nitrogen [Mass/Vol] 15 mg/dL Normal 9-24 [facility] Comment on above: Order Comment: Speci men Type: BLOOD SPECIMEN Performed By: #### 2 4321-2, , 2776-05 ####[facility] LABORATORYCLIA [id number] [address] CBC panel Auto (Bld)on 06-01 Erythrocyte distribution width (RBC) [Ratio] 15.4 % High 11.5-15.0 [facility] Comment on above: Order Comment: Speci men Type: BLOOD SPECIMEN Performed By: #### 5 8410-2 ####[facility] LABORATORYCLIA [id number] [address] Hematocrit (Bld) [Volume fraction] 38.4 % Low 39.0-51.0 [facility] Comment on above: Order Comment: Speci men Type: BLOOD SPECIMEN Performed By: #### 5 8410-2 ####[facility] LABORATORYCLIA [id number] [address] Hemoglobin (Bld) [Mass/Vol] 11.1 g/dL Low 13.0-17.0 [facility] Comment on above: Order Comment: Speci men Type: BLOOD SPECIMEN Performed By: #### 5 8410-2 ####[facility] LABORATORYCLIA [id number] [address] MCH (RBC) [Entitic mass] 26.9 pg Normal 26.0-34.0 [facility] Comment on above: Order Comment: Speci men Type: BLOOD SPECIMEN Performed By: #### 5 8410-2 ####[facility] LABORATORYCLIA [id number] [address] MCHC (RBC) [Mass/Vol] 28.9 g/dL Low 30.5-36.0 [facility] Comment on above: Order Comment: Speci men Type: BLOOD SPECIMEN Performed By: #### 5 8410-2 ####[facility] LABORATORYCLIA [id number] [address] MCV (RBC) [Entitic vol] 93.2 fL Normal 80.0-100.0 [facility] Comment on above: Order Comment: Speci men Type: BLOOD SPECIMEN Performed By: #### 5 8410-2 ####[facility] LABORATORYCLIA [id number] [address] Nucleated RBC (Bld) [#/Vol] 10*3/uL Normal <0.01 [facility] Comment on above: Order Comment: Speci men Type: BLOOD SPECIMEN Performed By: #### 5 8410-2 ####[facility] LABORATORYCLIA [id number] [address] Platelet mean volume (Bld) [Entitic vol] 10.2 fL Normal 9.0-12.7 [facility] Comment on above: Order Comment: Speci men Type: BLOOD SPECIMEN Performed By: #### 5 8410-2 ####[facility] LABORATORYCLIA [id number] [place], [place] [id number] [place] [address] [place] Platelets (Bld) [#/Vol] 231 10*3/uL Normal 150-400 [facility] Comment on above: Order Comment: Speci men Type: BLOOD SPECIMEN Performed By: #### 5 8410-2 ####[facility] LABORATORYCLIA [id number] [address] OF [facility] RBC (Bld) [#/Vol] 4.12 10*6/uL Low 4.20-6.00 [facility] Comment on above: Order Comment: Speci men Type: BLOOD SPECIMEN Performed By: #### 5 8410-2 ####[facility] LABORATORYCLIA [id number] [address] OF [facility] WBC (Bld) [#/Vol] 10.99 10*3/uL Normal 3.70-11.00 [facility] Comment on above: Order Comment: Speci men Type: BLOOD SPECIMEN Performed By: #### 5 8410-2 ####[facility] LABORATORYCLIA [id number] [address] CONSULT PROGon 06-01-2021 CONSULT PROG Normal [facility] CSF MANUAL DIFFon 06-01-2021 DIF TTL, CSF 100 cells counted Normal [facility] Comment on above: Order Comment: Speci men Type: CEREBROSPINAL FLUID Performed By: #### 3 4563-7, [id number] ####[facility] LABORATORYCLIA [id number] [address] [place] LYMPH%, CSF 11 % Low 50-90 [facility] Comment on above: Order Comment: Speci men Type: CEREBROSPINAL FLUID Performed By: #### 3 4563-7, [id number] ####[facility]ORATORYCLIA [id number] [address] [place] MONO%, CSF 10 % Normal 10-50 [facility] Comment on above: Order Comment: Speci men Type: CEREBROSPINAL FLUID Performed By: #### 3 4563-7, [id number] ####[facility]ORATORYCLIA [id number] [address] [place] NEUT%, CSF 79 % High 0-3 [facility] Comment on above: Order Comment: Speci men Type: CEREBROSPINAL FLUID Performed By: #### 3 4563-7, [id number] ####[facility]ORATORYCLIA [id number] [address] BRAIN WO IVCONon 06-01-19 CT BRAIN WO IVCON Normal [facility] Cell count panel (CSF)on Clarity (CSF) Clear Normal Clear [facility] Comment on above: Order Comment: Speci men Type: CEREBROSPINAL FLUID Performed By: #### 3 4563-7, [id number] ####[facility]ORATORYCLIA [id number] [address] Clarity (Unsp spec) Not Indicated Normal Clear [facility] Comment on above: Order Comment: Speci men Type: CEREBROSPINAL FLUID Performed By: #### 3 4563-7, [id number] ####[facility]ATORYCLIA [id number] [address] Color (CSF) Colorless Normal Colorless [facility] Comment on above: Order Comment: Speci men Type: CEREBROSPINAL FLUID Performed By: #### 3 4563-7, [id number] ####[facility]ATORYCLIA [id number] [address] Color (Spun CSF) Not Indicated Normal Colorless [facility] Comment on above: Order Comment: Speci men Type: CEREBROSPINAL FLUID Performed By: #### 3 4563-7, [id number] ####[facility]ATORYCLIA [id number] [address] CSF TUBE NUMBER Sterile Container Normal [facility] Comment on above: Order Comment: Speci men Type: CEREBROSPINAL FLUID Performed By: #### 3 4563-7, [id number] ####[facility]ATORYCLIA [id number] [address] RBC Manual cnt (CSF) [#/Vol] 171 cells/uL High 0-5 [facility] Comment on above: Order Comment: Speci men Type: CEREBROSPINAL FLUID Performed By: #### 3 4563-7, [id number] ####[facility] LABORATORYCLIA [id number] [address] WBC Manual cnt (CSF) [#/Vol] 5 cells/uL Normal 0-5 [facility] Comment on above: Order Comment: Speci men Type: CEREBROSPINAL FLUID Performed By: #### 3 4563-7, [id number] ####[facility] LABORATORYCLIA [id number] [address] FUNGAL CULTUREon 06-01-2021 FUNGAL CULTURE CULTURE, FUNGAL: No Fungus isolated after 28 days Normal [facility] Comment on above: Performed By: #### F CUL ####[facility] LABORATORYCLIA [id number] [address] Glucose CSF-mCncon 2 Glucose (CSF) [Mass/Vol] 78 mg/dL High 40-70 [facility] Comment on above: Order Comment: Speci men Type: CEREBROSPINAL FLUID Result Comment: Lumb ar CSF glucose values of healthy patients are approximately 60% of the plasma values and must always be compared with a concurrently measured plasma value for adequate clinical interpretation.References: 1. Glucose HK (GLUC3) [package insert V 12.0 [place]]. [employer], [place], [place]. September 2015. 2. Teresa HGarfield, Loki, H. (2015). Chapter 7: Glucose and Lactate. F. Irina rose al.(eds.), Cerebrospinal Fluid in Clinical Neurology. [place]: [employer]. Performed By: #### 2 342-4, 2880-3 ####[facility] LABORATORYCLIA [id number] [address] HERPES SIMPLEX CSFon 022 HERPES SIMPLEX CSF HSV PCR SPEC SOURCE: Cerebrospinal Fluid HSV-1: Negative for Herpes Simplex Virus Type 1 by PCR HSV-2: Negative for Herpes Simplex Virus Type 2 by PCR Normal [facility] Comment on above: Performed By: #### H [facility] ####[facility] REFERENCE LABCLIA [id number] [employer]00[place] [address] [address] [place] Lactate (Bld) [Moles/Vol]on 06-01-2021 Lactate [Moles/Vol] 0.5 mmol/L Normal 0.5-2.2 [facility] Comment on above: Order Comment: Speci men Type: BLOOD SPECIMEN Performed By: #### 3 2693-4 ####[facility] LABORATORYCLIA [id number] [address] MENINGITIS ENCEPHALITIS BIOF IREon 06-01-2021 MENINGITIS ENCEPHALITIS BIOFIRE Negative Normal [facility] Comment on above: Order Comment: Speci men Type: CEREBROSPINAL FLUID Performed By: #### M GEBF ####[facility]ENBEIGHCLIA [id number] [address] Magnesium SerPl-mCncon 06-01 Magnesium [Mass/Vol] 2.2 mg/dL Normal 1.7-2.3 [facility] Comment on above: Order Comment: Speci men Type: BLOOD SPECIMEN Performed By: #### 2 4321-2, 03732-6, 2777-1 ####[facility] LABORATORYCLIA [id number] [address] Microorganism Spec Culton Microorganism identified Cx Nom (Unsp spec) CULTURE, AFB: No Acid Fast Bacilli isolated after 42 days AFB STAIN: No acid fast bacilli seen by flurochrome stain Normal [facility] Comment on above: Performed By: #### 1 1475-1 ####[facility] LABORATORYCLIA [id number] [address] PROCALCITONIN (LAB)on 2021 Procalcitonin [Mass/Vol] 0.08 ng/mL Normal <0.09 [facility] Comment on above: Order Comment: Speci men Type: BLOOD SPECIMEN Result Comment: For a guided interpretation of test results, please visit the Change in Procalcitonin Calculator, [email or web address]. Performed By: #### P ROCAL ####[facility] LABORATORYCLIA [id number] [address] STATES [facility] Phosphate SerPl-mCncon 06-01 Phosphate [Mass/Vol] 3.5 mg/dL Normal 2.7-4.8 [facility] Comment on above: Order Comment: Speci men Type: BLOOD SPECIMEN Performed By: #### 2 4321-2, 51725-2, 2777-1 ####[facility] LABORATORYCLIA [id number] [address] STATES [facility] Prot CSF-ncon 06-01-2021 Protein (CSF) [Mass/Vol] 52 mg/dL High 15-45 [facility] Comment on above: Order Comment: Speci men Type: CEREBROSPINAL FLUID Performed By: #### 2 342-4, 2880-3 ####[facility] LABORATORYCLIA [id number] [address] [place] Vancomycin random [Mass/Vol] on 06-01-2021 Vancomycin [Mass/Vol] 14.6 ug/mL Normal 10.0-20.0 [facility] Comment on above: Order Comment: Speci men Type: BLOOD SPECIMEN Result Comment: Refe rence ranges and high/low indicator flags are provided as general guidelines only. The treating physician must determine appropriate target levels/dosing based on the specific clinical situation. Performed By: #### 4 091-5 ####[facility] LABORATORYCLIA [id number] [address] OF [facility] XR CHEST 1V FRONTALon 2021 XR CHEST 1V FRONTAL Normal [facility] XR CHEST 1V FRONTAL Normal [facility] XR NECK SOFT TISSUE 2V AP/LA Ton 06-01-2021 XR NECK SOFT TISSUE 2V AP/LAT Normal [facility] XR SKULL 2V AP/LATon 022 XR SKULL 2V AP/LAT Normal [facility] ALLIED HEALTHon 05-31-2021 ALLIED HEALTH HNO ID: [id number] Author: Christina Lynne RT(R) Service: Radiology Author Type: Technologist Type: Allied Health Filed: 05/31/2021 5:48 PM Note Text: MRI tomorrow per RN. Normal [facility] ALLIED HEALTH Normal [facility] ALLIED HEALTH Normal [facility] ALLIED HEALTH Normal [facility] ANES POSTPROC EVALon 022 ANES POSTPROC EVAL Normal [facility] ANES PRE-OPon 05-31-2021 ANES PRE-OP Normal [facility] BRIEF OP NOTon 05-31-2021 BRIEF OP NOT Normal [facility] Bacteria Bld Culton 05-31-19 22 Bacteria identified Cx Nom (Bld) CULTURE, BLOOD: No growth 5 days Normal [facility] Comment on above: Performed By: #### 6 00-7 ####[facility] LABORATORYCLIA [id number] [address] [place] Bacteria CSF Culton 05-31-19 22 Bacteria identified Cx Nom (CSF) CULTURE, CSF: No growth 14 days GRAM STAIN: No organisms seen Rare Polymorphonuclear leukocytes Rare Red Blood Cells Gram stain performed on cytospun specimen. Normal [facility] Comment on above: Performed By: #### 6 06-4 ####[facility] LABORATORYCLIA [id number] [place] [address] [place] Basic metabolic 2000 panelon 05-31-2021 Anion gap [Moles/Vol] 9 mmol/L Normal 9-18 [facility] Comment on above: Order Comment: Speci men Type: BLOOD SPECIMEN Performed By: #### 2 777-1, 61389-4, ####[facility] LABORATORYCLIA [id number] [place] [address] [place] Calcium [Mass/Vol] 8.2 mg/dL Low 8.5-10.2 [facility] Comment on above: Order Comment: Speci men Type: BLOOD SPECIMEN Performed By: #### 2 777-1, , ####[facility] LABORATORYCLIA [id number] [place], [place] [address] [place] [address] [place] Chloride [Moles/Vol] 110 mmol/L High 97-105 [facility] Comment on above: Order Comment: Speci men Type: BLOOD SPECIMEN Performed By: #### 2 777-1, , ####[facility] LABORATORYCLIA [id number] [address] [place] CO2 [Moles/Vol] 27 mmol/L Normal 22-30 [facility] Comment on above: Order Comment: Speci men Type: BLOOD SPECIMEN Performed By: #### 2 777-1, , ####[facility] LABORATORYCLIA [id number] [address] [place] Creatinine [Mass/Vol] 0.85 mg/dL Normal 0.73-1.22 [facility] Comment on above: Order Comment: Speci men Type: BLOOD SPECIMEN Performed By: #### 2 777-1, , ####[facility] LABORATORYCLIA [id number] [address] [place] GFR/1.73 sq M.predicted MDRD (S/P/Bld) [Vol rate/Area] mL/min/{1.73_m2} Normal [facility] Comment on above: [...] GFR. Performed By: #### 2 777-1, , ####[facility] LABORATORYCLIA [id number] [place] [address] [place] Glucose [Mass/Vol] 111 mg/dL High 74-99 [facility] Comment on above: Order Comment: Speci men Type: BLOOD SPECIMEN Result Comment: The [place] [employer] (ADA) provides guidance for cutoff [...] Standards of Medical Care in Diabetes 2016, [place] [employer]. Diabetes Care. 2016.39(Suppl 1). Performed By: #### 2 777-1, , ####[facility] LABORATORYCLIA [id number] [place] [address] [place] Potassium [Moles/Vol] 3.7 mmol/L Normal 3.7-5.1 [facility] Comment on above: Order Comment: Speci men Type: BLOOD SPECIMEN Performed By: #### 2 777-1, , ####[facility] LABORATORYCLIA [id number] [address] [place] Sodium [Moles/Vol] 146 mmol/L High 136-144 [facility] Comment on above: Order Comment: Speci men Type: BLOOD SPECIMEN Performed By: #### 2 777-1, , ####[facility] LABORATORYCLIA [id number] [place] [address] [place] Urea nitrogen [Mass/Vol] 16 mg/dL Normal 9-24 [facility] Comment on above: Order Comment: Speci men Type: BLOOD SPECIMEN Performed By: #### 2 777-1, , ####[facility]ORATORYCLIA [id number] [place], [place] [address] [place] [address] [place] CASE MGT INIT ASSESon 2021 CASE MGT INIT ASSES Normal [facility] CBC W Auto Differential pane l (Bld)on 05-31-2021 Basophils (Bld) [#/Vol] 0.04 10*3/uL Normal <0.11 [facility] Comment on above: Order Comment: Speci men Type: BLOOD SPECIMEN Performed By: #### 5 7021-8 ####[facility]ORATORYCLIA [id number] [address] STATES [facility] Basophils/100 WBC (Bld) 0.5 % Normal [facility] Comment on above: Order Comment: Speci men Type: BLOOD SPECIMEN Performed By: #### 5 7021-8 ####[facility]ORATORYCLIA [id number] [address] Differential cell count method Nom (Bld) Auto Normal [facility] Comment on above: Order Comment: Speci men Type: BLOOD SPECIMEN Performed By: #### 5 7021-8 ####[facility]ATORYCLIA [id number] [address] [place] Eosinophils (Bld) [#/Vol] 0.27 10*3/uL Normal <0.46 [facility] Comment on above: Order Comment: Speci men Type: BLOOD SPECIMEN Performed By: #### 5 7021-8 ####[facility]ORATORYCLIA [id number] [address] [place] Eosinophils/100 WBC (Bld) 3.3 % Normal [facility] Comment on above: Order Comment: Speci men Type: BLOOD SPECIMEN Performed By: #### 5 7021-8 ####[facility]ORATORYCLIA [id number] [address] [place] Erythrocyte distribution width (RBC) [Ratio] 15.4 % High 11.5-15.0 [facility] Comment on above: Order Comment: Speci men Type: BLOOD SPECIMEN Performed By: #### 5 7021-8 ####[facility]ORYCLIA [id number] [address] Hematocrit (Bld) [Volume fraction] 37.9 % Low 39.0-51.0 [facility] Comment on above: Order Comment: Speci men Type: BLOOD SPECIMEN Performed By: #### 5 7021-8 ####[facility]ORYCLIA [id number] [address] Hemoglobin (Bld) [Mass/Vol] 11.5 g/dL Low 13.0-17.0 [facility] Comment on above: Order Comment: Speci men Type: BLOOD SPECIMEN Performed By: #### 5 7021-8 ####[facility]ATORYCLIA [id number] [address] IMMATURE GRAN % 0.4 % Normal [facility] Comment on above: Order Comment: Speci men Type: BLOOD SPECIMEN Performed By: #### 5 7021-8 ####[facility]ORYCLIA [id number] [address] IMMATURE GRAN ABS 0.03 k/uL Normal <0.10 [facility] Comment on above: Order Comment: Speci men Type: BLOOD SPECIMEN Performed By: #### 5 7021-8 ####[facility]ORYCLIA [id number] [address] Lymphocytes (Bld) [#/Vol] 1.90 10*3/uL Normal 1.00-4.00 [facility] Comment on above: Order Comment: Speci men Type: BLOOD SPECIMEN Performed By: #### 5 7021-8 ####[facility]ORYCLIA [id number] [address] Lymphocytes/100 WBC (Bld) 23.0 % Normal [facility] Comment on above: Order Comment: Speci men Type: BLOOD SPECIMEN Performed By: #### 5 7021-8 ####[facility]ORATORYCLIA [id number] [address] MCH (RBC) [Entitic mass] 28.0 pg Normal 26.0-34.0 [facility] Comment on above: Order Comment: Speci men Type: BLOOD SPECIMEN Performed By: #### 5 7021-8 ####[facility] LABORATORYCLIA [id number] [address] MCHC (RBC) [Mass/Vol] 30.3 g/dL Low 30.5-36.0 [facility] Comment on above: Order Comment: Speci men Type: BLOOD SPECIMEN Performed By: #### 5 7021-8 ####[facility] LABORATORYCLIA [id number] [address] MCV (RBC) [Entitic vol] 92.4 fL Normal 80.0-100.0 [facility] Comment on above: Order Comment: Speci men Type: BLOOD SPECIMEN Performed By: #### 5 7021-8 ####[facility] LABORATORYCLIA [id number] [address] Monocytes (Bld) [#/Vol] 0.60 10*3/uL Normal <0.87 [facility] Comment on above: Order Comment: Speci men Type: BLOOD SPECIMEN Performed By: #### 5 7021-8 ####[facility] LABORATORYCLIA [id number] [address] Monocytes/100 WBC (Bld) 7.3 % Normal [facility] Comment on above: Order Comment: Speci men Type: BLOOD SPECIMEN Performed By: #### 5 7021-8 ####[facility] LABORATORYCLIA [id number] [address] Neutrophils (Bld) [#/Vol] 5.41 10*3/uL Normal 1.45-7.50 [facility] Comment on above: Order Comment: Speci men Type: BLOOD SPECIMEN Performed By: #### 5 7021-8 ####[facility]ORATORYCLIA [id number] [address] Neutrophils/100 WBC (Bld) 65.5 % Normal [facility] Comment on above: Order Comment: Speci men Type: BLOOD SPECIMEN Performed By: #### 5 7021-8 ####[facility] LABORATORYCLIA [id number] [address] Nucleated RBC (Bld) [#/Vol] 10*3/uL Normal <0.01 [facility] Comment on above: Order Comment: Speci men Type: BLOOD SPECIMEN Performed By: #### 5 7021-8 ####[facility] LABORATORYCLIA [id number] [address] Nucleated RBC/100 WBC (Bld) [Ratio] 0.0 /100 WBC Normal 0.0 [facility] Comment on above: Order Comment: Speci men Type: BLOOD SPECIMEN Performed By: #### 5 7021-8 ####[facility] LABORATORYCLIA [id number] [address] Platelet mean volume (Bld) [Entitic vol] 9.8 fL Normal 9.0-12.7 [facility] Comment on above: Order Comment: Speci men Type: BLOOD SPECIMEN Performed By: #### 5 7021-8 ####[facility] LABORATORYCLIA [id number] [address] Platelets (Bld) [#/Vol] 251 10*3/uL Normal 150-400 [facility] Comment on above: Order Comment: Speci men Type: BLOOD SPECIMEN Performed By: #### 5 7021-8 ####[facility]ORYCLIA [id number] [address] RBC (Bld) [#/Vol] 4.10 10*6/uL Low 4.20-6.00 [facility] Comment on above: Order Comment: Speci men Type: BLOOD SPECIMEN Performed By: #### 5 7021-8 ####[facility]ORATORYCLIA [id number] [place] [address] WBC (Bld) [#/Vol] 8.25 10*3/uL Normal 3.70-11.00 [facility] Comment on above: Order Comment: Speci men Type: BLOOD SPECIMEN Performed By: #### 5 7021-8 ####[facility] LABORATORYCLIA [id number] [address] [place] CONSULTon 05-31-2021 CONSULT Normal [facility] CONSULT Normal [facility] CONSULT Normal [facility] CT BRAIN WO IVCONon 05-31-19 CT BRAIN WO IVCON Normal [facility] CT BRAIN WO IVCON Normal [facility] CT CHEST WO IVCONon 05-31-19 CT CHEST WO IVCON Normal [facility] Cortis SerPl-mCncon 05-31-19 Cortisol [Mass/Vol] 31.0 ug/dL High AM: 5.3-22.5, PM: 3.4-16.8 [facility] Comment on above: Order Comment: Speci men Type: BLOOD SPECIMEN Result Comment: Prov ided reference range is from 6-10 AM sample collection time.Cortisol Reference Range: 6-10 AM = 4.8-19.5 ug/dL, 4-8 PM = 2.5-11.9 ug/dL Performed By: #### 2 143-6, 3016-3 ####[facility] LABORATORYCLIA [id number] [address] Cryptoc Ag Spec Ql LAon 05-08 Cryptococcus sp Ag LA Ql (Unsp spec) Negative Normal [facility] Comment on above: Performed By: #### 4 3228-6 ####[facility] LABORATORYCLIA [id number] [address] HISTORY PHYSICALon HISTORY PHYSICAL Normal [facility] Magnesium SerPl-mCncon 05-31 Magnesium [Mass/Vol] 2.2 mg/dL Normal 1.7-2.3 [facility] Comment on above: Order Comment: Speci men Type: BLOOD SPECIMEN Performed By: #### 2 777-1, 48589-0, ####[facility] LABORATORYCLIA [id number] [address] OF [facility] NURSING PROGon 05-31-2021 NURSING PROG Normal [facility] NUTRITIONon 05-31-2021 NUTRITION Normal [facility] OPERATIVE NOon 05-31-2021 OPERATIVE NO Normal [facility] Phosphate SerPl-mCncon 05-31 Phosphate [Mass/Vol] 3.3 mg/dL Normal 2.7-4.8 [facility] Comment on above: Order Comment: Speci men Type: BLOOD SPECIMEN Performed By: #### 2 777-1, 13026-0, ####[facility] LABORATORYCLIA [id number] [address] [place] STAPH AUREUS PCRon S. aureus and MRSA panel MEGAN+probe (Nose) Normal Negative [facility] Comment on above: Order Comment: Speci men Type: SWAB OF INTERNAL NOSE Result Comment: Nega tive for Staphylococcus aureus by PCR.Negative for MRSA by PCR Performed By: #### S APCR ####[facility] LABORATORYCLIA [id number] [address] [place] TSH SerPl-aCncon 05-31-2021 TSH Qn 0.829 m[IU]/L Normal 0.270-4.200 [facility] Comment on above: Order Comment: Speci men Type: BLOOD SPECIMEN Performed By: #### 2 143-6, 3016-3 ####[facility] LABORATORYCLIA [id number] [address] [place] XR CHEST 1V FRONTALon 2021 XR CHEST 1V FRONTAL Normal [facility] XR CHEST 1V FRONTAL Normal [facility] Blood Cultureon 05-30-2021 Bacteria identified Cx Nom (Bld) Culture Result - No growth 5 days Normal [facility] Comment on above: Performed By: #### C AD #### [facility] [address] [place], [place] [id number] [place] [address] [address] [place], [place] [address] Bacteria identified Cx Nom (Bld) Sp. Request/Comment: - 8.2MLS Culture Result - No growth 5 days [address] [facility] Comment on above: Performed By: #### C AD #### [facility] [address] [place] [address] [facility] [address] [place], [place] [address] C-Reactive Proteinon 022 C-Reactive Protein 1.7 mg/dL High <0.[address] [facility] Comment on above: Performed By: #### C RP ####[facility] [address] [place], [place] [phone] CNDSon 05-30-2021 CNDS HNO ID: [id number] Author: Columba Carroll PA-C Service: Hospital Medicine Author Type: Physician Calender Roll Press Operator Type: Discharge Summary Filed: 05/30/2021 12:49 [...] Team: Attending Provider: Ayaka Menjivar MD Physician Calender Roll Press Operator: Columba Carroll PA-C Consulting: Lilo Mendoza [...] consulted. Neurology suggested empiric abx coverage for RESIDENTIAL DIRECTOR infection Rocephin and Vancomycin was started. Tele-neuro also suggested an MRI brain be obtained prior to LP to check ANALYTICS SENIOR MANAGER shunt and decrease risk of herniation in neurosurgery capable facility. Transfer to [facility] requested. Sepsis lactate was 1.3. ABG showed pO2 67.8, placed patient on 2L NC.Follow B1, B12, and RPR pending. Transitions of Care Critical Issues: - patient transferred for [facility] for management of possible RESIDENTIAL DIRECTOR infection and herniation. LABS AND PROCEDURES PENDING [...] intravenously q 1 (more content not included)... [facility] CONSULTon 05-30-2021 CONSULT HNO ID: [id number] Author: Juan Carlos Mckenzie MD Service: Infectious [...] vertebrae with counting from the craniocervical junction. Rn Document Improvement Specialist: PSCB Transcribe Date/Time: May 29 2021 8:59P Dictated by : CARLOS YOUNGER MD This examination was interpreted and the report reviewed and electronically signed by: CARLOS YOUNGER MD on May 29 2021 9:14PM EST ? CT CERVICAL SPINE WO (more content not included)... Normal [facility] CONSULT HNO ID: [id number] Author: Lilo Mendoza MD Service: Neurology General Author Type: Physician Type: Consults Filed: 05/30/2021 10:56 AM Note Text: [facility] TeleNeurology Consult Note Patient seen using [facility]. Recommendations are placed in the chart. Please review. For questions after hours, when teleneurologist is not available, for [place]: Please Page [phone] for the [facility] from 12pm to 8Am Admitting Provider/Consulted by:Hermes Roca MD Time of Note:05/30/2021 Patient Name:Andrew Sifuentes Admit Date:05/29/2021 Hospital Day:0 CC: altered mental status History of Present Illness: Andrew Sifuentes is a 71 year old unknown handed male with limited information about past medical history including venous insufficiency s/p EVLT, hydrocepalus s/p ANALYTICS SENIOR MANAGER shunt in 1987 with multiple revisions and [...] Taking? , Authorizing Provider Tosha Haase Medication aspirin 81 mg chewable tablet, [...] Reflexes Right Lef (more content not included)... [facility] CONSULT PROGon 05-30-2021 CONSULT PROG [facility] CONSULT PROG HNO ID: [id number] Author: Shannon Gutierres [facility] Service: Pharmacy Author Type: Pharmacist Type: Consult Progress Note Filed: 05/30/2021 2:35 PM Note Text: PHARMACY VANCOMYCIN DOSING NOTE Patient Name: Andrew Sifuentes Admission Date: 05/29/2021 Date of Consult: 05/30/2021 Time of Consult: 2:32 PM Indication: possible RESIDENTIAL DIRECTOR infection Goal Range: 15-20 mcg/mL RECOMMENDATIONS/PLAN: Pharmacy [...] any questions, please contact inpatient pharmacy at [phone]. Age: [age] year old Allergies: ALLERGIES Allergen [...] No results found for: IMANI Gutierres [facility] Normal [facility] Creatinineon 05-30-2021 Creatinine [Mass/Vol] 0.86 mg/dL Normal 0.73-1.22 [facility] Comment on above: Performed By: #### C RET1 ####[facility] [address] [place], [place] [phone] eGFR- Amer. >60 [facility] Comment on above: Performed By: #### C RET1 ####[facility] To[address]42 [address]160 eGFR-All Other Races >60 Normal [facility] Comment on above: Result Comment: eGFR [...] at [email or web address]. Performed By: #### C RET1 ####[facility] G[address]mz[address]75 [address]5160 Crypto Antigen Deton 022 Crypto Antigen Det Sp. Request/Comment: - SST Test Result - Duplicate request Account Credited [facility] Comment on above: Performed By: #### C AD #### [facility] [address] [place] [address] Crypto Antigen Det Sp. Request/Comment: - SST Test Result - Cryptococcal antigen detection result: Negative By latex agglutination [facility] Comment on above: Performed By: #### C AD #### [facility] [address] [place] [address] [facility] [address] [place] [address] ED NOTEon 05-30-2021 ED NOTE HNO ID: [id number] Author: Aletha Lopez RN Service: ? Author Type: Registered Nurse Type: ED Notes Filed: 05/29/2021 11:16 PM Note Text: Patient changed for incontinent urine, labs redrawn and sent. Patient aware of plan to be admitted and agrees with plan Normal [facility] HISTORY PHYSICALon 2 HISTORY PHYSICAL Normal [facility] HISTORY PHYSICAL HNO ID: [id number] Author: Hermes Roca MD Service: Hospital Medicine Author Type: Physician Type: HANDP Filed: 05/30/2021 1:03 AM Note Text: DEPARTMENT OF HOSPITAL MEDICINE HISTORY AND PHYSICAL EXAM SERVICE DATE: 05/29/2021 SERVICE TIME: 11:18 PM Primary Care Physician: Mateus Burris MD NIGHT AND WEEKEND COVERAGE: Please page [phone] until 7:30am this morning. After 7:30am please check the treatment team banner and page the appropriate service. 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 Normal [facility] Magnesium SerPl-mCncon 05-30 Magnesium [Mass/Vol] 2.5 mg/dL High 1.7-2.3 [facility] Comment on above: Order Comment: Speci men Type: BLOOD SPECIMEN Performed By: #### 1 9123-9, 2777-1 ####[facility] LABORATORYCLIA [id number] [place] [address] [place] NURSING PROGon 05-30-2021 NURSING PROG HNO ID: [id number] Author: Precious Cervantes RN Service: ? Author Type: Registered Nurse Type: Nursing Progress Note Filed: 05/30/2021 11:26 AM Note Text: Nursing Progress Note Patient Name: Andrew Sifuentes Patient Location: [facility]-[id number] Daily Note: 0700- Report received from night custodian RN, patient resting in bed at this time, call light within reach, bed low and locked. Asked the patient to state his name because night custodian RN was unable to complete his admission [...] This note was completed by: Precious Cervantes [facility] NURSING PROG HNO ID: [id number] Author: Lyubov Day RN Service: ? Author Type: Registered Nurse Type: Nursing Progress Note Filed: 05/30/2021 1:27 AM Note Text: Nursing Progress Note Patient Name: Andrew Sifuentes Patient Location: [place] [id number] 0100: Patient is unresponsive to questions. Patient [...] This note was completed by: Lyubov Day [facility] Phosphate SerPl-mCncon 05-30 Phosphate [Mass/Vol] 3.5 mg/dL Normal 2.7-4.8 [facility] Comment on above: Order Comment: Speci men Type: BLOOD SPECIMEN Performed By: #### 1 9123-9, 2777-1 ####[facility] LABORATORYCLIA [id number] [place] [address] [place] Sepsis Lactateon 05-30-2021 Sepsis Lactate 1.5 mmol/L Normal 0.5-2.[address] [facility] Comment on above: Performed By: #### S LACT ####[facility] [address] [place] [phone] Syphilis Ttl w/Reflxon 05-30 Syphilis Interp Cannot exclude recen t Treponemal infection if specimen collected within 7 to 10 days after appearance of suspect lesions or 2 to 3 weeks after an exposure. Clinical correlation is required. [facility] Comment on above: Performed By: #### S YPHTX, B1WB ####[facility] [address] [place], [place] [phone] Syphilis Screen Rslt Non-Reactive Normal Non Reactive [facility] Comment on above: Performed By: #### S YPHTX, B1WB ####[facility] [address] [place], [place] [phone] THERAPY NTon 05-30-2021 THERAPY NT HNO ID: [id number] Author: RADHA Andres/Felecia Service: Occupational Therapy Author Type: Occupational Therapist Type: Therapy (PT/OT/Speech/Resp) Filed: 05/30/2021 10:29 AM Note Text: OCCUPATIONAL THERAPY MISSED VISIT SERVICE DATE: 05/30/2021 SERVICE TIME: 1017 to 1019 ROOM: [place] [address] Attempted Evaluation. Patient not seen due to Not following commands. Per nursing patient was seen by neuro and they are talking about having him transferred to [facility] secondary to shunt concerns. Will re attempt in the event patient continues to be admitted at [place] and is able to participate. SIGNATURE: RADHA Andres/L PATIENT NAME: Andrew Sifuentes DATE: May 30, 2021 TIME: 10:21 AM [facility] THERAPY NT HNO ID: [id number] Author: Bette Velasquez, PT Service: Physical Therapy Author Type: Physical Therapist Type: Therapy (PT/OT/Speech/Resp) Filed: 05/30/2021 8:42 AM Note Text: PHYSICAL THERAPY MISSED VISIT SERVICE DATE: 05/30/2021 SERVICE TIME: 0840 to 0840 ROOM: [place] [address] Attempted Evaluation. Patient not seen due to (pt difficult to awake per RN, very lethargic). Will re-attempt when schedule permits. SIGNATURE: Bette Velasquez, PT PATIENT NAME: Andrew Sifuentes DATE: May 30, 2021 TIME: 8:41 AM Normal [facility] Toxicology Screen,Uron 05-30 Amphetamines, Urine Negative Normal Negative [facility] Comment on above: Result Comment: Cuto ff threshold at 1000 ng/mL. Performed By: #### C AD #### [facility] [place] 2342295 [place] [phone] Barbiturates, Urine Negative Normal Negative [facility] Comment on above: Result Comment: Cuto ff threshold at 200 ng/mL. Performed By: #### C AD #### [facility] [place] 2342295 [place] [phone] Benzodiazepines, Ur Negative Normal Negative [facility] Comment on above: Result Comment: Cuto ff threshold at 200 ng/mL. Performed By: #### C AD #### [facility] [address] [place] [phone] [facility] [address] [place] [phone] Cannabinoids, Urine Negative Normal Negative [facility] Comment on above: Result Comment: Cuto ff threshold at 50 ng/mL. Performed By: #### C AD #### [facility] [address] [place] [phone] [facility] [address] [place] [address] Cocaine, Urine Negative Normal Negative [facility] Comment on above: Result Comment: Cuto ff threshold at 300 ng/mL. Performed By: #### C AD #### [facility] [address] [place] [phone] [facility] [address] [place] [address] Opiates, Urine Negative Normal Negative [facility] Comment on above: Result Comment: Cuto ff threshold at 300 ng/mL. Performed By: #### C AD #### [facility] [address] [place] [phone] [facility] [address] [place] [address] Oxycodone, Urine Negative Normal Negative [facility] Comment on above: Result Comment: [...] on the same specimen through Client Services ([phone]) if contacted within 48 hours of initial testing. [1]Substance Abuse and Mental Health Services Administration (2012). Clinical Drug Testing in Primary Care Technical Assistance Publication Series 32. Department of Health and Human Services, [place], p.10. Performed By: #### C AD #### [facility] [address] [place] [phone] [facility] [address] [place] [address] Phencyclidine, Urine Negative Normal Negative [facility] Comment on above: Result Comment: Cuto ff threshold at 25 ng/mL. Performed By: #### C AD #### [facility] [address] [place] [phone] [facility] [address] [place], [place] [address] Troponin Ton 05-30-2021 Troponin T <0.010 Normal 0.000-0.[address] [facility] Comment on above: Performed By: #### T NT ####[facility] [address] [place] [phone] Urinalysison 05-30-2021 Bilirubin, Urine Negative Normal Negative [facility] Comment on above: Performed By: #### C AD #### [facility] [address] [place] [phone] [facility] [address] [place] [address] Clarity (U) Slightly Cloudy Critically abnormal Clear [facility] Comment on above: Performed By: #### C AD #### [facility] [address] [place] [phone] [facility] [address] [place] [address] Color (U) Yellow Normal Yellow [facility] Comment on above: Performed By: #### C AD #### [facility] [address] [place] [phone] [facility] [address] [place] [address] Glucose Ql (U) Negative Normal Negative [facility] Comment on above: Performed By: #### C AD #### [facility] [address] [place] [phone] [facility] [address] [place], [place] [address] Hemoglobin/Blood,Ur Negative Normal Negative [facility] Comment on above: Performed By: #### C AD #### [facility] [address] [place] [phone] [facility] [address] [place] [address] Ketones Ql (U) Negative Normal Negative [facility] Comment on above: Performed By: #### C AD #### [facility] [address] [place] [phone] [facility] [address] [place], [place] [address] Leukest Negative Normal Negative [facility] Comment on above: Performed By: #### C AD #### [facility] [address] [place] [address] [facility] [address] [place], [place] [address] Nitrite Ql (U) Negative Normal Negative [facility] Comment on above: Performed By: #### C AD #### [facility] [address] [place] [address] [facility] [address] [place] [address] pH (U) 8.5 [pH] High 5.0-8.[address] [facility] Comment on above: Performed By: #### C AD #### [facility] [place] [address] [facility] [address] [place] [address] Protein, Urine Negative Normal Negative [facility] Comment on above: Performed By: #### C AD #### [facility] [address] [place] [address] [facility] [address] [place] [address] Specific [place], Ur 1.015 Normal 1.005-1.030 [facility] Comment on above: Performed By: #### C AD #### [facility] [address] [place] [address] [facility] [address] [place], [place] [address] Urobilinogen Qn (U) 0.2 {Marianne'U}/dL Normal 0.2-1.[address] [facility] Comment on above: Performed By: #### C AD #### [facility] [address] [place] [address] [place] [address] [place], [place] [address] Vitamin B1, Whole Blon 05-30 Vitamin B1 (TDP), WB 207.1 nmol/L Normal 84.0-213.0 [facility] Comment on above: Result Comment: This assay measures the concentration of thiamine diphosphate (TDP), the primary active form of vitamin B1. Approximately 90 percent of vitamin B1 present in whole blood is TDP. Thiamine and thiamine monophosphate, which comprise the remaining 10 percent, are not measured. This test was developed and its performance characteristics determined by [facility]'s [facility] [place] ([facility]). It has not been cleared or approved by the FDA. [facility] is regulated under CLIA as qualified to perform high complexity testing. This test is used for clinical purposes. It should not be regarded as investigational or for research. Performed By: #### S YPHTX, B1WB ####[facility] [place], [place] [phone] Vitamin B12on 05-30-2021 Cobalamin (Vitamin B12) [Mass/Vol] 494 pg/mL Normal 232-[address] [facility] Comment on above: Performed By: #### C AD #### [facility] [address] [place] [address] [facility] [address] [place], [place] [address] ALLIED HEALTHon 05-29-2021 ALLIED HEALTH HNO ID: [id number] Author: RT Kitty(Lisa) Service: Radiology Author Type: [...] Kitty(R) May 29, 2021 8:51 PM Normal [facility] ALLIED HEALTH HNO ID: [id number] Author: Markie Fish Service: ? Author Type: Pigment And Lacquer Mixer Type: Allied Health Filed: 05/29/2021 8:39 PM [...] Markie Fish May 29, 2021 8:38 PM [facility] CBC and Differentialon 05-29 Abs Baso 0.05 k/uL Normal <0.[address] [facility] Comment on above: Performed By: #### C MP, MG1, CBCDIF ####[facility] [address] [place] [address] Abs Hood 0.72 k/uL Normal <0.[address] [facility] Comment on above: Performed By: #### C MP, MG1, CBCDIF ####[facility] [address] [place] [address] Abs Neut 7.86 k/uL High 1.45-7.[address] [facility] Comment on above: Performed By: #### C MP, MG1, CBCDIF ####[facility] [address] [place] [address] Absolute nRBC <0.01 Normal <0.[address] [facility] Comment on above: Performed By: #### C MP, MG1, CBCDIF ####[facility] [address] [place] [address] Basophils/100 WBC (Bld) 0.5 % Normal [facility] Comment on above: Performed By: #### C MP, MG1, CBCDIF ####[facility] [address] [place] [address] DTYPE Auto Diff Normal [facility] Comment on above: Performed By: #### C MARÍA ELENA MG1, CBCDIF ####[facility] [address] [place] [address] Eosinophils (Bld) [#/Vol] 0.10 10*3/uL Normal <0.[address] [facility] Comment on above: Performed By: #### C MARÍA ELENA MG1, CBCDIF ####[facility] [address] [place], [place] [phone] Eosinophils/100 WBC (Bld) 0.9 % Normal [facility] Comment on above: Performed By: #### C MARÍA ELENA MG1, CBCDIF ####[place] [address] Erythrocyte distribution width (RBC) [Ratio] 15.5 % High 11.5-15.[address] [facility] Comment on above: Performed By: #### C MARÍA ELENA MG1, CBCDIF ####[facility] [address] [place] [address] Hematocrit (Bld) [Volume fraction] 41.6 % Normal 39.0-51.[address] [facility] Comment on above: Performed By: #### C MARÍA ELENA MG1, CBCDIF ####[place] [address] Hemoglobin (Bld) [Mass/Vol] 12.7 g/dL Low 13.0-17.[address] [facility] Comment on above: Performed By: #### C MARÍA ELENA MG1, CBCDIF ####[facility] [address] [place] [address] Lymphocytes (Bld) [#/Vol] 2.04 10*3/uL Normal 1.00-4.[address] [facility] Comment on above: Performed By: #### C MARÍA ELENA MG1, CBCDIF ####[facility] [address] [place], [place] [phone] Lymphocytes/100 WBC (Bld) 18.9 % Normal [facility] Comment on above: Performed By: #### C MARÍA ELENA MG1, CBCDIF ####[facility] [address] [place] [address] MCH 27.3 pG Normal 26.0-34.[address] [facility] Comment on above: Performed By: #### C MP MG1, CBCDIF ####[facility] [address] [place] [address] MCHC (RBC) [Mass/Vol] 30.5 g/dL Normal 30.5-36.0 [facility] Comment on above: Performed By: #### C MP, MG1, CBCDIF ####[facility] [address] [place] [address] MCV (RBC) [Entitic vol] 89.5 fL Normal 80.0-100.[address] [facility] Comment on above: Performed By: #### C MP MG1, CBCDIF ####[place] [address] Monocytes/100 WBC (Bld) 6.7 % Normal [facility] Comment on above: Performed By: #### C MP, MG1, CBCDIF ####[place] [address] Neutrophils/100 WBC (Bld) 73.0 % Normal [facility] Comment on above: Performed By: #### C MP, MG1, CBCDIF ####[place] [address] NRBCs 0.0 /100 WBC Normal [address] [facility] Comment on above: Performed By: #### C MP, MG1, CBCDIF ####[place] [address] Platelet mean volume (Bld) [Entitic vol] 10.1 fL Normal 9.0-12.[address] [facility] Comment on above: Performed By: #### C MP, MG1, CBCDIF ####[place] [address] Platelets (Bld) [#/Vol] 291 10*3/uL Normal 150-[address] [facility] Comment on above: Performed By: #### C MP, MG1, CBCDIF ####[facility] [address] [place] [address] RBC (Bld) [#/Vol] 4.65 10*6/uL Normal 4.20-6.00 [facility] Comment on above: Performed By: #### C MP, MG1, CBCDIF ####[facility] Nszabhsayi4845 [phone] WBC (Bld) [#/Vol] 10.77 10*3/uL Normal 3.70-11.00 [facility] Comment on above: Performed By: #### C MP, MG1, CBCDIF ####[facility] Uswwrzstga4872 [phone] CT BRAIN WO IVCONon 05-29-19 CT BRAIN WO IVCON * * *Final Report* * * DATE OF EXAM: May 29 2021 8:42PM [facility] 0504 - CT BRAIN WO IVCON / PROCEDURE REASON: Head trauma, headache * * * * Physician Interpretation * * * * EXAMINATION: CT CERVICAL SPINE WO IVCON, CT BRAIN WO IVCON CLINICAL HISTORY: C-spine trauma, NEXUS/CCR positive (accession [id number]), Head trauma, headache (accession [id number]) TECHNIQUE: Serial axial unenhanced images were obtained from the vertex to the foramen magnum. Spiral, high resolution axial unenhanced images were obtained from the skull base to the cervicothoracic junction with sagittal and coronal planar reconstructions. Dose-Length Product (DLP): 2132 mGy*cm. CT Dose Reduction Employed: Automated exposure control (AEC) COMPARISON: 08/13/[address] RESULT: BRAIN: Post-operative change: Right parietal approach ANALYTICS SENIOR MANAGER shunt is intact. The intracranial fragments of [...] vertebrae with counting from the craniocervical junction. Rn Document Improvement Specialist: [employer] Transcribe Date/Time: May 29 2021 8:59P Dictated by : CARLOS YOUNGER MD This examination was interpreted and the report reviewed and electronically signed by: CARLOS YOUNGER MD on May 29 2021 9:14PM EST [id number] [facility] CT CERVICAL SPINE WO IVCONon 05-29-2021 CT CERVICAL SPINE WO IVCON * * *Final Report* * * DATE OF EXAM: May 29 2021 8:42PM [facility] 0505 - CT CERVICAL SPINE WO IVCON / PROCEDURE REASON: C-spine trauma, NEXUS/CCR positive * * * * Physician Interpretation * * * * EXAMINATION: CT CERVICAL SPINE WO IVCON, CT BRAIN WO IVCON CLINICAL HISTORY: C-spine trauma, NEXUS/CCR positive (accession [id number]), Head trauma, headache (accession [id number]) TECHNIQUE: Serial axial unenhanced images were obtained from the vertex to the foramen magnum. Spiral, high resolution axial unenhanced images were obtained from the skull base to the cervicothoracic junction with sagittal and coronal planar reconstructions. Dose-Length Product (DLP): 2132 mGy*cm. CT Dose Reduction Employed: Automated exposure control (AEC) COMPARISON: 08/13/[address] RESULT: BRAIN: Post-operative change: Right parietal approach ANALYTICS SENIOR MANAGER shunt is intact. The intracranial fragments of [...] vertebrae with counting from the craniocervical junction. Rn Document Improvement Specialist: [facility] Transcribe Date/Time: May 29 2021 8:59P Dictated by : CARLOS YOUNGER MD This examination was interpreted and the report reviewed and electronically signed by: CARLOS YOUNGER MD on May 29 2021 9:14PM EST [id number] Normal [facility] Cepheid Bill only (EXCFR)on 05-29-2021 Cepheid Bill only (EXCFR) Billed for services performed Normal [facility] Comment on above: Performed By: #### C AD #### [facility] [address] [place] [address] [facility] [address] [place], [place] [address] Comp Metabolic Panelon 05-29 Albumin [Mass/Vol] 4.1 g/dL Normal 3.9-4.[address] [facility] Comment on above: Performed By: #### C MP ####[facility] [address]3139 [place] [phone] ALP [Catalytic activity/Vol] 86 U/L Normal 38-[address] [facility] Comment on above: Performed By: #### C MP ####[facility] [address]ydvjusr2691 [place] [phone] ALT [Catalytic activity/Vol] 15 U/L Normal 10-[address] [facility] Comment on above: Performed By: #### C MP ####[facility] [address]bf8247 [place] [address] Anion gap [Moles/Vol] 9 mmol/L Normal 9-18 [facility] Comment on above: Performed By: #### C MP ####[facility] Vjucwnxecx6622 [place] [address] AST [Catalytic activity/Vol] 22 U/L Normal 14-[address] [facility] Comment on above: Performed By: #### C MP ####[facility] Qrxiucinyb3117 [place] [address] Bilirubin [Mass/Vol] 0.2 mg/dL Normal 0.2-1.3 [facility] Comment on above: Performed By: #### C MP ####[facility] [address] [place] [address] Calcium [Mass/Vol] 9.1 mg/dL Normal 8.5-10.[address] [facility] Comment on above: Performed By: #### C MP ####[facility] Ljgcluvfld2972 [place] [address] Chloride [Moles/Vol] 103 mmol/L Normal 97-105 [facility] Comment on above: Performed By: #### C MP ####[facility] Tcbjagpczs0852 [place] [address] CO2 [Moles/Vol] 29 mmol/L Normal 22-[address] [facility] Comment on above: Performed By: #### C MP ####[facility] Zsiidwgqev0370 [place] [address] Creatinine [Mass/Vol] 0.89 mg/dL Normal 0.73-1.22 [facility] Comment on above: Performed By: #### C MP ####[facility] Pemaojvgsp6977 [place] [address] eGFR- Amer. >[address] [facility] Comment on above: Performed By: #### C MP ####[facility] Khqnpzrlnc3024 [place] [address] eGFR-All Other Races >60 Normal [facility] Comment on above: Result Comment: eGFR [...] at [email or web address]. Performed By: #### C MP ####[facility] Lnmimcpgrp0461 [phone] Glucose [Mass/Vol] 120 mg/dL High 74-[address] [facility] Comment on above: Result Comment: The [place] Diabetes Association (ADA) provides guidance for cutoff [...] Standards of Medical Care in Diabetes 2016, [place] [employer]. Diabetes Care. 2016.39(Suppl 1). Performed By: #### C MP ####[facility] Gqhvoyhknn2236 [place] [phone] Potassium [Moles/Vol] 4.2 mmol/L Normal 3.7-5.1 [facility] Comment on above: Performed By: #### C MP ####[facility] Cskpuiryfc0617 [phone] Protein [Mass/Vol] 7.1 g/dL Normal 6.3-8.[address] [facility] Comment on above: Performed By: #### C MP ####[facility] Npixmwtivk0107 [place] [address] Sodium [Moles/Vol] 141 mmol/L Normal 136-[address] [facility] Comment on above: Performed By: #### C MP ####[facility] Scclzquejq8926 [place] [address] Urea nitrogen [Mass/Vol] 11 mg/dL Normal 9-[address] [facility] Comment on above: Performed By: #### C MP ####[facility] [address] [place] [address] Albumin [Mass/Vol] 4.1 g/dL Normal 3.9-4.[address] [facility] Comment on above: Performed By: #### C MP, MG1, CBCDIF ####[facility] [address] [place] [address] ALP [Catalytic activity/Vol] 86 U/L Normal 38-[address] [facility] Comment on above: Performed By: #### C MP, MG1, CBCDIF ####[facility] [address] [place] [address] ALT Unable to assay due to interference from hemolysis. Suggest reorder as clinically indicated. Normal 10-[address] [facility] Comment on above: Result Comment: Call ed to ED Álvaro at 2128 on 05.29.21 by Sabino Performed By: #### C MP, MG1, CBCDIF ####[facility] [address] [place] [address] Anion gap [Moles/Vol] 12 mmol/L Normal 9-18 [facility] Comment on above: Performed By: #### C MP, MG1, CBCDIF ####[facility] [address] [place] [address] AST Unable to assay due to interference from hemolysis. Suggest reorder as clinically indicated. Normal 14-[address] [facility] Comment on above: Result Comment: Call ed to ED Álvaro at 2128 on 05.29.21 by Sabino Performed By: #### C MP, MG1, CBCDIF ####[facility] Tfsrykrypr1158 [place] [address] Bilirubin [Mass/Vol] 0.2 mg/dL Normal 0.2-1.3 [facility] Comment on above: Performed By: #### C MP, MG1, CBCDIF ####[facility] Zxecaijgcq4153 [place] [address] Calcium [Mass/Vol] 9.0 mg/dL Normal 8.5-10.[address] [facility] Comment on above: Performed By: #### C MP, MG1, CBCDIF ####[facility] Ncapdqmszc5315 [place] [address] Chloride [Moles/Vol] 102 mmol/L Normal 97-105 [facility] Comment on above: Performed By: #### C MP, MG1, CBCDIF ####[facility] Fditsktwmb5219 [place] [address] CO2 [Moles/Vol] 27 mmol/L Normal 22-[address] [facility] Comment on above: Performed By: #### C MP, MG1, CBCDIF ####[facility] Apbzeaioaz9920 [place] [address] Creatinine [Mass/Vol] 0.75 mg/dL Normal 0.73-1.22 [facility] Comment on above: Performed By: #### C MP, MG1, CBCDIF ####[facility] Bdkqxhzayn4470 [place] [address] eGFR- Amer. >[address] [facility] Comment on above: Performed By: #### C MP, MG1, CBCDIF ####[facility] Wqdewxtovg8387 [place] [address] eGFR-All Other Races >60 Normal [facility] Comment on above: Result Comment: eGFR [...] By: #### C MARÍA ELENA MG1, CBCDIF ####[facility] Gokfbqpurl6839 [address]5[address] Glucose [Mass/Vol] 112 mg/dL High 74-[address] [facility] Comment on above: Result Comment: The [place] Diabetes Association (ADA) provides guidance for cutoff [...] Standards of Medical Care in Diabetes 2016, [place] [employer]. Diabetes Care. 2016.39(Suppl 1). Performed By: #### C MARÍA ELENA, MG1, CBCDIF ####[facility] Tibflxzvhq4407 [place] [phone] Potassium Unable to assay due to interference from hemolysis. Suggest reorder as clinically indicated. Normal 3.7-5.[address] [facility] Comment on above: Result Comment: Call ed to LISA Rea at 2129 on 05.29.21 by Sabino Performed By: #### C MP, MG1, CBCDIF ####[facility] Csucwehfde0430 [address]5160 Protein [Mass/Vol] 7.3 g/dL Normal 6.3-8.[address] [facility] Comment on above: Performed By: #### C MP, MG1, CBCDIF ####[facility] F[address]wyfgycv4281 [place] [phone] Sodium [Moles/Vol] 141 mmol/L Normal 136-[address] [facility] Comment on above: Performed By: #### C MP, MG1, CBCDIF ####[facility] Geow[address]hsbx0048 [place] [phone] Urea nitrogen [Mass/Vol] 11 mg/dL Normal 9-[address] [facility] Comment on above: Performed By: #### C MP, MG1, CBCDIF ####[facility] Gqhawwppua0636 [place] [phone] ED PROV NOTEon 05-29-2021 ED PROV NOTE HNO ID: [id number] Author: Shanell Slaughter MD Service: ? Author [...] No radiographic evidence of acute cardiopulmonary disease. Rn Document Improvement Specialist: [employer] Transcribe Date/Time: May 29 2021 8:53P [...] vertebrae with counting from the craniocervical junction. Rn Document Improvement Specialist: [employer] Transcribe Date/Time: May 29 2021 8:59P [...] vertebrae with counting from the craniocervical junction. Rn Document Improvement Specialist: PSCShilpa Transcribe Date/Time: May 29 (more content not included)... Normal [facility] ED PROV NOTE HNO ID: [id number] Author: Flavio Pandya DO Service: Emergency Medicine Author Type: Physician Type: ED Provider Notes Filed: 05/29/2021 7:10 PM Note Text: ED Provider Note Patient Name: Andrew Sifuentes SERVICE DATE: 05/29/21 History Patient presents with: Fall 71 yo male non-smoker, hx of HTN, 2 ANALYTICS SENIOR MANAGER shunts, PE (not on anticoagulation now), asthma, [...] with assistance from bedside clinician. Provider Location: [facility] Patient Location: Outpatient Hospital Physical Exam Vital [...] Flavio Pandya, DO Flavio Pandya, 05/29/211909 Normal [facility] EXCOVD, Flu A/B, RSV (On int erfaces 1102,1120)on 05-29-2021 Influenza A PCR Negative Normal [facility] Comment on above: Performed By: #### C AD #### [facility] [place] [phone] [place] [address] Influenza B PCR Negative Normal [facility] Comment on above: Performed By: #### C AD #### [facility] [place] [address] [place] [address] RSV PCR Negative Normal [facility] Comment on above: Result Comment: This test has been authorized by FDA under an Emergency Use Authorization (EUA). Performed By: #### C AD #### [facility] [place] [address] [place] [address] SARS-CoV-2 (COVID-19) RNA MEGAN+probe Ql (Unsp spec) UPPER RESPIRATORY TRACT SWAB Normal [facility] Comment on above: Performed By: #### C AD #### [facility] [address] [place] [address] [place] [phone] SARS-CoV-2 (COVID-19) RNA MEGAN+probe Ql (Unsp spec) Negative for COVID19 (SARS CoV2) by RT-PCR or equivalent method. Normal Negative for COVID19 (SARS CoV2) by RT-PCR or equivalent method. [facility] Comment on above: Result Comment: This test has been authorized by FDA under an Emergency Use Authorization (EUA). Performed By: #### C AD #### [facility] [place] [address] [place] [phone] Magnesiumon 05-29-2021 Magnesium [Mass/Vol] 2.2 mg/dL Normal 1.7-2.3 [facility] Comment on above: Performed By: #### C MP, MG1, CBCDIF ####[facility] Et[address]lmhpgb1799 [place] [phone] NT Pro BNPon 05-29-2021 PRO B Natr Peptide 303 pg/mL High <[address] [facility] Comment on above: Performed By: #### N TBNP ####[facility] Tjculbvfdl8243 [place] [phone] Troponin Ton 05-29-2021 Troponin T <0.010 Normal 0.000-0.[address] [facility] Comment on above: Performed By: #### T NT ####[facility] Gfkahxlnrp2838 [place] [phone] Troponin T Unable to assay due to interference from hemolysis. Suggest reorder as clinically indicated. Normal 0.000-0.[address] [facility] Comment on above: Result Comment: Call ed to LISA Rea at 2129 on 05.29.21 by Sabino Performed By: #### T NT ####[facility] Sakurmryva7019 [phone] XR CHEST 1V FRONTAL PORTon 0 [...] No radiographic evidence of acute cardiopulmonary disease. Rn Document Improvement Specialist: PSC[employer]ilpa Transcribe Date/Time: May 29 2021 8:53P Dictated by : ROLY BANGURA MD This examination was interpreted and the report reviewed and electronically signed by: ROLY BANGURA MD on May 29 2021 8:54PM EST [id number] Normal [facility] COMPREHENSIVE PANELon 2020 Albumin [Mass/Vol] 3.9 g/dL Normal 3.4 - 5.0 [facility] Comment on above: Order Comment: PATIE NT FASTING Performed By: #### C MP #### [facility] [address] [place] [address] ALP [Catalytic activity/Vol] 71 U/L Normal 33 - 136 [facility] Comment on above: Order Comment: PATIE NT FASTING Performed By: #### C MP #### [facility] [address] [place] [address] ALT [Catalytic activity/Vol] 19 U/L Normal 10 - 52 [facility] Comment on above: Order Comment: PATIE NT FASTING Result Comment: Nasima ents treated with Sulfasalazine may generate falsely decreased results for ALT. Performed By: #### C MP #### [facility] [address] [place] [address] Anion gap [Moles/Vol] 13 mmol/L Normal 10 - 20 [facility] Comment on above: Order Comment: PATIE NT FASTING Performed By: #### C MP #### [facility] [address] [place] [address] AST [Catalytic activity/Vol] 20 U/L Normal 9 - 39 [facility] Comment on above: Order Comment: PATIE NT FASTING Performed By: #### C MP #### [facility] [address] [place] [address] Bilirubin [Mass/Vol] 0.6 mg/dL Normal 0.0 - 1.2 [facility] Comment on above: Order Comment: PATIE NT FASTING Performed By: #### C MP #### [facility] [address] [place] [address] Calcium [Mass/Vol] 9.0 mg/dL Normal 8.6 - 10.6 [facility] Comment on above: Order Comment: PATIE NT FASTING Performed By: #### C MP #### [facility] [address] [place] [address] Chloride [Moles/Vol] 103 mmol/L Normal 98 - 107 [facility] Comment on above: Order Comment: PATIE NT FASTING Performed By: #### C MP #### [facility] [address] [place] [address] Creatinine [Mass/Vol] 0.94 mg/dL Normal 0.50 - 1.30 [facility] Comment on above: Order Comment: PATIE NT FASTING Performed By: #### C MP #### [facility] [address] [place] [address] GFR- AM. >60 Normal >60 [facility] Comment on above: Order Comment: PATIE NT FASTING Result Comment: CALC ULATIONS OF ESTIMATED GFR ARE PERFORMED USING THE MDRD STUDY EQUATION FOR THE IDMS-TRACEABLE CREATININE METHODS. CLIN CHEM 2007;53:766-72 Performed By: #### C MP #### [facility] [address] [place] [address] GFR-NON AM. >60 Normal >60 [facility] Comment on above: Order Comment: PATIE NT FASTING Performed By: #### C MP #### [facility] [address] [place] [address] Glucose [Mass/Vol] 85 mg/dL Normal 74 - 99 [facility] Comment on above: Order Comment: PATIE NT FASTING Performed By: #### C MP #### [facility] [address] [place] [address] HCO3 (Bld) [Moles/Vol] 30 mmol/L Normal 21 - 32 [facility] Comment on above: Order Comment: PATIE NT FASTING Performed By: #### C MP #### [facility] [address] [place] [address] Potassium [Moles/Vol] 4.1 mmol/L Normal 3.5 - 5.3 [facility] Comment on above: Order Comment: PATIE NT FASTING Performed By: #### C MP #### [facility] [address] [place] [address] Protein [Mass/Vol] 6.6 g/dL Normal 6.4 - 8.2 [facility] Comment on above: Order Comment: PATIE NT FASTING Performed By: #### C MP #### [facility] [address] [place] [address] Sodium [Moles/Vol] 142 mmol/L Normal 136 - 145 [facility] Comment on above: Order Comment: PATIE NT FASTING Performed By: #### C MP #### [facility] [address] [place] [address] Urea nitrogen [Mass/Vol] 14 mg/dL Normal 6 - 23 [facility] Comment on above: Order Comment: PATIE NT FASTING Performed By: #### C MP #### [facility] [address] [place] [address] LIPID PANEL (CORONARY RISK 2 )on 09-03-2020 Cholesterol [Mass/Vol] 210 mg/dL High 0 - 199 [facility] Comment on above: Order Comment: [...] Performed By: #### L IPID #### [facility] [address] [place] [address] Cholesterol in HDL [Mass/Vol] 50.1 mg/dL Normal [facility] Comment on above: Order Comment: PATIE NT FASTING Result Comment: . AGE VERY LOW LOW NORMAL HIGH 0-19 Y < 35 < 40 40-45 ---- 20-24 Y ---- < 40 >45 ---- >24 Y ---- < 40 40-60 >60 . Performed By: #### L IPID #### [facility] [address] [place] [address] Cholesterol in LDL [Mass/Vol] 130 mg/dL High 0 - 99 [facility] Comment on above: Order Comment: PATIE NT FASTING Result Comment: . NEAR BORD AGE DESIRABLE OPTIMAL HIGH HIGH VERY HIGH 0-19 Y 0 - 109 --- 110-129 >/= 130 ---- 20-24 Y 0 - 119 --- 120-159 >/= 160 ---- >24 Y 0 - 99 100-129 130-159 160-189 >/=190 . Performed By: #### L IPID #### [facility] [address] [place] [address] Cholesterol in VLDL [Mass/Vol] 30 mg/dL Normal 0 - 40 [facility] Comment on above: Order Comment: PATIE NT FASTING Performed By: #### L IPID #### [facility] [address] [place] [address] Cholesterol.total/Chol esterol in HDL [Mass ratio] 4.2 {ratio} Normal [facility] Comment on above: Order Comment: PATIE NT FASTING Result Comment: REF VALUES DESIRABLE < 3.4 HIGH RISK > 5.0 Performed By: #### L IPID #### [facility] [address] [place] [address] Triglyceride [Mass/Vol] 152 mg/dL High 0 - 149 [facility] Comment on above: Order Comment: [...] dosing. Performed By: #### L IPID #### [facility] [address] [place] [id number] PROSTATE SPEC.AG,SCREENon PROSTATE SPEC.AG,SCREEN 0.37 ng/mL Normal 0.00 - 4.00 [facility] Comment on above: Order Comment: PATIE NT FASTING Result Comment: The FDA requires that the method used for PSA assay be reported to the physician. Values obtained with different assay methods must not be used interchangeably. This test was performed at [facility] using the Siemens Figment PSA method, which is a sandwich immunoassay using chemiluminescence for quantitation. The assay is approved for measurement of prostate-specific antigen (PSA) in serum and may be used in conjunction with a digital rectal examination in men 50 years and older as an aid in detection of prostate cancer. 3-Owrvp-balcafirt inhibitors (e.g. Proscar, Finasteride, Avodart, Dutasteride and Elizabeth) for the treatment of BPH have been shown to lower PSA levels by an average of 50% after 6 months of treatment. Performed By: #### P SASC #### [facility] [address] [place] [address] TSH WITH REFLEX TO FREE T4 I F ABNORMALon 09-03-2020 TSH Qn 0.97 m[IU]/L Normal 0.44 - 3.98 [facility] Comment on above: Order Comment: PATIE NT FASTING Result Comment: TSH testing is performed using different testing methodology at [facility] than at other [facility]. Direct result comparisons should only be made within the same method. Performed By: #### T HYDS #### [facility] [address] [place] [address] CBC AND DIFFERENTIALon 09-02 % AUTOMATED IMMATURE GRAN 0.3 % Normal 0.0 - 0.9 [facility] Comment on above: Order Comment: PATIE NT FASTING Result Comment: [place] Granulocyte Count (IG) includes promyelocytes, myelocytes and metamyelocytes but does not include bands. Percent differential counts (%) should be interpreted in the context of the absolute cell counts (cells/L). Performed By: #### C BCDF #### [facility] [address] [place] [address] Basophils (Bld) [#/Vol] 0.07 10*3/uL Normal 0.00 - 0.10 [facility] Comment on above: Order Comment: PATIE NT FASTING Result Comment: Auto mated WBC differential has been confirmed by manual smear. Performed By: #### C BCDF #### [facility] [facility] [id number] [place] [address] Basophils/100 WBC (Bld) 0.9 % Normal 0.0 - 2.0 [facility] Comment on above: Order Comment: PATIE NT FASTING Performed By: #### C BCDF #### [facility] [address] [place] [address] Eosinophils (Bld) [#/Vol] 0.21 10*3/uL Normal 0.00 - 0.70 [facility] Comment on above: Order Comment: PATIE NT FASTING Performed By: #### C BCDF #### [facility] [address] [place] [address] Eosinophils/100 WBC (Bld) 2.8 % Normal 0.0 - 6.0 [facility] Comment on above: Order Comment: PATIE NT FASTING Performed By: #### C BCDF #### [facility] [address] [place] [address] Lymphocytes (Bld) [#/Vol] 2.28 10*3/uL Normal 1.20 - 4.80 [facility] Comment on above: Order Comment: PATIE NT FASTING Performed By: #### C BCDF #### [facility] [address] [place] [address] Lymphocytes/100 WBC (Bld) 30.9 % Normal 13.0 - 44.0 [facility] Comment on above: Order Comment: PATIE NT FASTING Performed By: #### C BCDF #### [facility] [address] [place] [address] Monocytes (Bld) [#/Vol] 0.50 10*3/uL Normal 0.10 - 1.00 [facility] Comment on above: Order Comment: PATIE NT FASTING Performed By: #### C BCDF #### [facility] [address] [place] [address] Monocytes/100 WBC (Bld) 6.8 % Normal 2.0 - 10.0 [facility] Comment on above: Order Comment: PATIE NT FASTING Performed By: #### C BCDF #### [facility] [address] [place] [address] Neutrophils (Bld) [#/Vol] 4.29 10*3/uL Normal 1.20 - 7.70 [facility] Comment on above: Order Comment: PATIE NT FASTING Performed By: #### C BCDF #### [facility] [address] [place] [address] Neutrophils/100 WBC (Bld) 58.3 % Normal 40.0 - 80.0 [facility] Comment on above: Order Comment: PATIE NT FASTING Performed By: #### C BCDF #### [facility] [address] [place] [address] Erythrocyte distribution width (RBC) [Ratio] 14.6 % High 11.5 - 14.5 [facility] Comment on above: Order Comment: PATIE NT FASTING Performed By: #### C BCDF #### [facility] [address] [place] [address] Hematocrit (Bld) [Volume fraction] 43.1 % Normal 41.0 - 52.0 [facility] Comment on above: Order Comment: PATIE NT FASTING Performed By: #### C BCDF #### [facility] [address] [place] [address] Hemoglobin (Bld) [Mass/Vol] 13.3 g/dL Low 13.5 - 17.5 [facility] Comment on above: Order Comment: PATIE NT FASTING Performed By: #### C BCDF #### [facility] [address] [place] [address] MCHC (RBC) [Mass/Vol] 30.9 g/dL Low 32.0 - 36.0 [facility] Comment on above: Order Comment: PATIE NT FASTING Performed By: #### C BCDF #### [facility] [address] [place] [address] MCV (RBC) [Entitic vol] 92 fL Normal 80 - 100 [facility] Comment on above: Order Comment: PATIE NT FASTING Performed By: #### C BCDF #### [facility] [address] [place] [address] NUCLEATED RBC 0.0 /100 WBC Normal 0.0-0.0 [facility] Comment on above: Order Comment: PATIE NT FASTING Performed By: #### C BCDF #### [facility] [address] [place] [address] Platelets (Bld) [#/Vol] 267 10*3/uL Normal 150 - 450 [facility] Comment on above: Order Comment: PATIE NT FASTING Performed By: #### C BCDF #### [facility] [address] [place] [address] RBC 4.69 x10E12/L Normal 4.50 - 5.90 [facility] Comment on above: Order Comment: PATIE NT FASTING Performed By: #### C BCDF #### [facility] [address] [place] [address] WBC (Bld) [#/Vol] 7.4 10*3/uL Normal 4.4 - 11.3 [facility] Comment on above: Order Comment: PATIE NT FASTING Performed By: #### C BCDF #### [facility] [address] [place] [address] RED CELL MORPHOLOGYon 2020 CHANELL CELLS Few Normal [facility] Comment on above: Order Comment: PATIE NT FASTING Performed By: #### M ORP2 #### [facility] [address] [place] [address] OVALOCYTES Few Normal [facility] Comment on above: Order Comment: PATIE NT FASTING Performed By: #### M ORP2 #### [facility] [address] [place] [address] POLYCHROMASIA Mild Normal [facility] Comment on above: Order Comment: PATIE NT FASTING Performed By: #### M ORP2 #### [facility] [address] [place] [address] RBC FRAGMENTS Few Normal [facility] Comment on above: Order Comment: PATIE NT FASTING Performed By: #### M ORP2 #### [facility] [address] [place] [address] RBC morphology finding Nom (Bld) See Below Normal [facility] Comment on above: Order Comment: PATIE NT FASTING Performed By: #### M ORP2 #### [facility] [address] [place] [address] No Panel Informationon 01-19 76 1 MP-Cardiolo [...] [place] Work Phone: [email or web address] ?RetrieveTestByDateTime?P [email or web address]&Date=1 09-13-2019&Time=15%3a11%3a 03%3a00&TestType=ECG&Site =1&OutputType=PDF&Ext=PDF [facility]iolo gy-[facility] [place] Work Phone: Otheron 11-13-2019 [facility] Complete Blood Count + Diffe rentialon 11-06-2019 Basophils (Bld) [#/Vol] 0.06 {x10E9/L} See Below [facility] Work Phone: Comment on above: Reference Range: 0.0 0 - 0.10 Basophils/100 WBC (Bld) 0.8 % 0.0 - 2.0 [facility] Work Phone: Eosinophils (Bld) [#/Vol] 0.18 {x10E9/L} See Below [facility] Work Phone: Comment on above: [...] Lymphocytes (Bld) [#/Vol] 2.15 {x10E9/L} See Below [facility] Work Phone: Comment on above: Reference Range: 1.2 0 - 4.80 Lymphocytes/100 WBC (Bld) 29.9 % See Below [facility] Work Phone: Comment on above: Reference Range: 13. 0 - 44.0 MCHC (RBC) [Mass/Vol] 30.8 g/dL below low threshold See Below [facility] Work Phone: Comment on above: Reference Range: 32. 0 - 36.0 MCV (RBC) [Entitic vol] 94 fL 80 - 100 [facility] Work Phone: Monocytes (Bld) [#/Vol] 0.49 {x10E9/L} See Below [facility] Work Phone: Comment on above: Reference Range: 0.1 0 - 1.00 Monocytes/100 WBC (Bld) 6.8 % 2.0 - 10.0 [facility] Work Phone: Neutrophils (Bld) [#/Vol] 4.30 {x10E9/L} See Below [facility] Work Phone: Comment on [...] 5.90 WBC (Bld) [#/Vol] 0.0 {/100_WBC} 0.0-0.0 [facility] Work Phone: WBC (Bld) [#/Vol] 7.2 {x10E9/L} 4.4 - 11.3 [facility] Work Phone: Complete Blood Count + Differential 0.1 % 0.0 - 0.9 [facility] Work Phone: Comment on above: Immature Granulocyte Count (IG) includes promyelocytes, myelocytes and metamyelocytes but does not include bands. Percent differential counts (%) should be interpreted in the context of the absolute cell counts (cells/L). Lipid Panelon 11-06-2019 Cholesterol [Mass/Vol] 181 mg/dL 0 - 199 [facility] Work Phone: Comment on above: . AGE [...] dosing. Cholesterol in HDL [Mass/Vol] 52.1 mg/dL [facility] Work Phone: Comment on above: . AGE VERY LOW LOW N ORMAL HIGH 0-19 Y < 35 < 40 40-45 ---- 20-24 Y ---- < 40 >45 ---- >24 Y ---- < 40 40-60 >60. Cholesterol in LDL [Mass/Vol] 97 mg/dL 0 - 99 [facility] Work Phone: Comment on above: . NEAR BORD AGE IZABELLA RABLE OPTIMAL HIGH HIGH VERY HIGH 0-19 Y 0 - 109 --- 110-129 >/= 130 ---- 20-24 Y 0 - 119 --- 120-159 >/= 160 ---- >24 Y 0 - 99 100-129 130-159 160-189 >/=190. Cholesterol.total/Chol esterol in HDL [Mass ratio] 3.5 {ratio} [facility] Work Phone: Comment on above: REF VALUESDESIRABLE < 3.4HIGH RISK > 5.0 Triglyceride [Mass/Vol] 158 mg/dL above high threshold 0 - 149 [facility]ician [facility] Work Phone: Comment on above: . [...] Lipid Panel 32 mg/dL 0 - 40 [facility] Work Phone: Metabolic Panelon 11-06-2019 ALP [Catalytic activity/Vol] 70 U/L 33 - 136 [facility] Work Phone: Anion gap [Moles/Vol] 13 mmol/L 10 - 20 [facility] Work Phone: Bilirubin [Mass/Vol] 0.6 mg/dL 0.0 - 1.2 [facility] Work Phone: Calcium [Mass/Vol] 9.4 mg/dL 8.6 - 10.6 [facility] Work Phone: Chloride [Moles/Vol] 99 mmol/L 98 - 107 [facility] Work Phone: CO2 [Moles/Vol] 30 mmol/L 21 - 32 [facility] Work Phone: Creatinine [Mass/Vol] 0.87 mg/dL See Below [facility] Work Phone: Comment on above: Reference Range: 0.5 0 - 1.30 Glucose [Mass/Vol] 89 mg/dL 74 - 99 [facility] Work Phone: Potassium [Moles/Vol] 4.3 mmol/L 3.5 - 5.3 [facility] Work Phone: Protein [Mass/Vol] 7.3 g/dL 6.4 - 8.2 [facility] Work Phone: Sodium [Moles/Vol] 138 mmol/L 136 - 145 [facility] Work Phone: Urea nitrogen [Mass/Vol] 14 mg/dL 6 - 23 [facility] Work Phone: Otheron 11-06-2019 Albumin BCP dye [Mass/Vol] 4.4 g/dL 3.4 - 5.0 [facility] Work Phone: ALT With P-5'-P [Catalytic activity/Vol] 11 U/L 10 - 52 [facility] Work Phone: Comment on above: Patients treated wit h Sulfasalazine may generate falsely decreased results for ALT. AST With P-5'-P [Catalytic activity/Vol] 17 U/L 9 - 39 [facility] Work Phone: >60 >60 [facility] Work Phone: Comment on above: CALCULATIONS OF LUZMARIA MATED GFR ARE PERFORMED USING THE MDRD STUDY EQUATION FOR THE IDMS-TRACEABLE CREATININE METHODS. CLIN CHEM 2007;53:766-72 Culture, urine Bacteria identified Cx Nom (U) Mixed Gram Pos & Gram Neg Org [facility] Work Phone: Bacteria identified Cx Nom (U) Klebsiella pneumoniae sp pneum [facility] Work Phone: Vital Signs Date Time Vital Sign Value Performing Clinician Facility 09-13-2023 11:48-0400 Body height 175.3 cm Rebecca Buck MD Work Phone: [facility] [employer] [facility] [employer] 09-13-2023 11:48-0400 Body mass index (BMI) [Ratio] 25.84 kg/m2 Rebecca Buck MD Work Phone: [facility] [employer] [facility] [employer] 09-13-2023 11:48-0400 Body weight 79.38 kg Rebecca Buck MD Work Phone: [facility] [employer] [facility] [employer] 08-13-2023 09:56-0400 Body height 175.3 cm Rebecca Buck MD Work Phone: [facility] [employer] [facility] [employer] 08-13-2023 09:56-0400 Body mass index (BMI) [Ratio] 25.84 kg/m2 Rebecca Buck MD Work Phone: [employer] [facility] [employer] 08-13-2023 09:56-0400 Body weight 79.38 kg Rebecca Buck MD Work Phone: [employer] [facility] [employer] [facility] 03-02-2022 18:49-0400 Body temperature 98.01 [degF] Lanette Munguia DO Work Phone: [employer] 03-02-2022 18:49-0400 Diastolic blood pressure 72 mm[Hg] Lanettepriscilla Munguia DO Work Phone: [employer] 03-02-2022 18:49-0400 Heart rate 94 /min Lanettepriscilla Munguia DO Work Phone: [employer] 03-02-2022 18:49-0400 Respiratory rate 18 /min Lanette Munguia DO Work Phone: [employer] 03-02-2022 18:49-0400 SaO2% (BldA) [Mass fraction] 98 % Lanettepriscilla Munguia DO Work Phone: [employer] 03-02-2022 18:49-0400 Systolic blood pressure 104 mm[Hg] Lanette Munguia DO Work Phone: [employer] 03-02-2022 11:55-0400 Body height 175.3 cm Lanette Munguia DO Work Phone: [facility] 03-02-2022 11:55-0400 Body mass index (BMI) [Ratio] 25.84 kg/m2 Lanette Munguia DO Work Phone[facility] 03-02-2022 11:55-0400 Body weight 79.38 kg Lanette Munguia DO Work Phone: [facility] 12-22-2021 02:08-0400 Diastolic blood pressure 67 mm[Hg] Sharon Olivia MD Work Phone: [facility] 12-22-2021 02:08-0400 Heart rate 77 /min Sharon Olivia MD Work Phone: [facility] 12-22-2021 02:08-0400 Respiratory rate 16 /min Sharon Olivia MD Work Phone: [facility] 12-22-2021 02:08-0400 SaO2% (BldA) [Mass fraction] 96 % Sharon Olivia MD Work Phone: [facility] 12-22-2021 02:08-0400 Systolic blood pressure 108 mm[Hg] Sharon Olivia MD Work Phone: [facility] 12-21-2021 23:52-0400 Body height 175.3 cm Sharon Olivia MD Work Phone: [facility] 12-21-2021 23:52-0400 Body mass index (BMI) [Ratio] 25.84 kg/m2 Sharon Olivia MD Work Phone: [facility] 12-21-2021 23:52-0400 Body temperature 97.9 [degF] Sharon Olivia MD Work Phone: [facility] 12-21-2021 23:52-0400 Body weight 79.38 kg Sharon Olivia MD Work Phone: [facility] 11-01-2021 08:41-0400 Diastolic blood pressure 77 mm[Hg] Dante Kim MD Work Phone: [facility] 11-01-2021 08:41-0400 Heart rate 75 /min Dante Kim MD Work Phone: [facility] 11-01-2021 08:41-0400 Respiratory rate 16 /min Dante Kim MD Work Phone: [facility] 11-01-2021 08:41-0400 SaO2% (BldA) [Mass fraction] 97 % Dante Kim MD Work Phone: [facility] 11-01-2021 08:41-0400 Systolic blood pressure 112 mm[Hg] Dante Kim MD Work Phone: [facility] 10-31-2021 19:13-0400 Body height 177.8 cm Dante Kim MD Work Phone: [facility] 10-31-2021 19:13-0400 Body mass index (BMI) [Ratio] 27.26 kg/m2 Dante Kim MD Work Phone: [facility] 10-31-2021 19:13-0400 Body temperature 98.49 [degF] Dante Kim MD Work Phone: [facility] 10-31-2021 19:13-0400 Body weight 86.18 kg Dante Kim MD Work Phone: [facility] 10-29-2021 07:38-0400 Body temperature 97.81 [degF] Lisajames Michelle DO Work Phone: [facility] 10-29-2021 07:38-0400 Diastolic blood pressure 79 mm[Hg] Lisaitalia Michelle DO Work Phone: [facility] 10-29-2021 07:38-0400 Heart rate 80 /min Lisa Miguel Angel DO Work Phone: [facility] 10-29-2021 07:38-0400 Respiratory rate 18 /min Lisaitalia Michelle DO Work Phone: [facility] 10-29-2021 07:38-0400 SaO2% (BldA) [Mass fraction] 96 % Lisa Michelle DO Work Phone: [facility] 10-29-2021 07:38-0400 Systolic blood pressure 123 mm[Hg] Lisa Michelle DO Work Phone: [facility] 10-25-2021 13:55-0400 Body height 170.2 cm Lisa Michelle DO Work Phone: [facility] 10-21-2021 00:57-0400 Body mass index (BMI) [Ratio] 37.58 kg/m2 Lisa Michelle DO Work Phone: [facility] 10-21-2021 00:57-0400 Body weight 108.86 kg Lisa Michelle DO Work Phone: [facility] 07-13-2020 13:21-0500 BMI (Body Mass Index) 40.47 kg/m2 Monika Staley [facility] Work Phone: 07-13-2020 13:21-0500 Body Temperature 98 [degF] Shiela Stuart [facility] Work Phone: 07-13-2020 13:21-0500 Body weight 124.31 kg Monika Staley [facility] Work Phone: 07-13-2020 13:21-0500 BP Diastolic 78 mm[Hg] Monika Staley [facility] Work Phone: 07-13-2020 13:21-0500 BP Systolic 138 mm[Hg] Monika Staley [facility] Work Phone: 07-13-2020 13:21-0500 BSA (Body Surface Area) 2.36 m2 Monika Staley [facility] Work Phone: 04-13-2020 15:33-0500 BMI (Body Mass Index) 40.32 kg/m2 Wing Ritter [facility] Work Phone: 04-13-2020 15:33-0500 Body weight 123.83 kg Wing Ritter [facility] Work Phone: 04-13-2020 15:33-0500 BP Diastolic 82 mm[Hg] [facility] Work Phone: Comment on above: Location: [facility]; Position: Sitting 04-13-2020 15:33-0500 BP Systolic 145 mm[Hg] Wing [facility] Work Phone: Comment on above: Location: [facility]; Position: Sitting 04-13-2020 15:33-0500 BSA (Body Surface Area) 2.36 m2 Wing Ritter [facility] Work Phone: 04-13-2020 15:33-0500 Height 175.26 cm Wing Ritter [facility] Work Phone: 04-13-2020 15:33-0500 Pulse (Heart Rate) 98 /min [facility] Work Phone: 04-13-2020 15:33-0500 Pulse Oximetry 98 % Wing Ritter [facility] Work Phone: Comment on above: Source: 04-13-2020 15:33-0500 0 1 [facility] Work Phone: Comment on above: Pain Scale 01-20-2020 16:39-0400 Body height 175.26 cm Monika Staley MD [facility] [place] Work Phone: 01-20-2020 16:39-0400 Body mass index (BMI) [Ratio] 39.28 kg/m2 Monika Staley MD RX-Kdumsttlpq-Sqp [facility] [address] [place] Work Phone: 01-20-2020 16:39-0400 Body surface area Derived from formula 2.33 m2 Monika Staley MD PF-Geihoblayp-Yra [facility] [address] [place] Work Phone: 01-20-2020 16:39-0400 Body weight 120.66 kg Monika Staley MD [facility] [place] Work Phone: 01-20-2020 16:39-0400 Diastolic blood pressure 84 mm[Hg] Monika Staley MD XW-Udcnobzyef-Nyc [facility] [address] [place] Work Phone: Comment on above: Location: [facility]; Position: Sitting 01-20-2020 16:39-0400 Heart rate 80 /min Monika Staley MD [facility] [place] Work Phone: 01-20-2020 16:39-0400 SaO2% (BldA) [Mass fraction] 100 % Monika Staley MD CH-Cmdmqoegrs-Pnj [facility] [address] [place] Work Phone: Comment on above: Source: 01-20-2020 16:39-0400 Systolic blood pressure 144 mm[Hg] Monika Staley MD TM-Yscmybgors-Pkt [facility] [address] [place] Work Phone: Comment on above: Location: [facility]; Position: Sitting 11-06-2019 15:29-0400 BMI (Body Mass Index) 38.31 kg/m2 oMnika Staley [facility] Work Phone: 11-06-2019 15:29-0400 Body Temperature 97.6 [degF] Monika Staley [facility] Work Phone: 11-06-2019 15:29-0400 Body weight 117.66 kg Monika Staley [facility] Work Phone: 11-06-2019 15:29-0400 BP Diastolic 62 mm[Hg] Monika Staley [facility] Work Phone: 11-06-2019 15:29-0400 BP Systolic 140 mm[Hg] Monika Staley [facility] Work Phone: 11-06-2019 15:29-0400 BSA (Body Surface Area) 2.31 m2 Monika Wang [facility] Work Phone: 11-06-2019 15:29-0400 Height 175.26 cm Monika Wang [facility] Work Phone: Encounters Encounter Date Encounter Type Care Provider Facility Start: 12-24-2024 ambulatory Carlos Quickros OLS Faci lity:[facility] Start: 12-22-2024 ambulatory Mahaveer Mukka flash OLS Facility:[facility] Start: 12-18-2024 ambulatory Mahaveer Mukka flash OLS Facility:[facility] Start: 12-15-2024 ambulatory Mahaveer Mukka flash OLS Facility:[facility] Start: 12-11-2024 ambulatory Peter Katsaros OLS Faci lity:[facility] Start: 12-08-2024 ambulatory Mahaveer Mukka flash OLS Facility:[facility] Start: 12-04-2024 ambulatory Mahaveer Mukka flash OLS Facility:[facility] Start: 12-02-2024 ambulatory Mahaveer Mukka flash OLS Facility:[facility] Start: 12-01-2024 ambulatory Peter Katsaros OLS Faci lity:[facility] Start: 11-28-2024 ambulatory Peter Katsaros OLS Faci lity:[facility] Start: 11-27-2024 ambulatory Mahaveer Mukka flash OLS Facility:[facility] Start: 11-24-2024 ambulatory Mahaveer Mukka flash OLS Facility:[facility] Start: 11-20-2024 ambulatory Mahaveer Mukka flash OLS Facility:[facility] Start: 11-17-2024 ambulatory Mahaveer Mukka flash OLS Facility:[facility] Start: 11-13-2024 ambulatory Mahaveer Mukka flash OLS Facility:[facility] Start: 11-10-2024 ambulatory Mahaveer Mukka flash OLS Facility:[facility] Start: 11-06-2024 ambulatory Mahaveer Mukka flash OLS Facility:[facility] Start: 11-03-2024 ambulatory Peter Katsaros OLS Faci lity:[facility] Start: 10-30-2024 [facility] Start: 10-30-2024 Registered Referred Karon casillas MD -[facility] Start: 10-27-2024 [facility] Start: 10-27-2024 Registered Referred Karon casillas MD -[facility] Start: 10-23-2024 [facility] Start: 10-23-2024 Registered Referred Karon casillas MD -[facility] Start: 10-20-2024 ambulatory [facility] OLS Facility:[facility] Start: 10-20-2024 [facility]istered [facility] Start: 10-16-2024 ambulatory [facility] OLS Facility:[facility] Start: 10-16-2024 [facility] Start: 10-13-2024 ambulatory Carlos NOVAK Faci lity:[facility] Start: 10-13-2024 Registered Referred Carlos Cavazos - [facility] Start: 10-09-2024 [facility] Start: 10-09-2024 [facility]istered [facility] Start: 10-06-2024 ambulatory Carlos NOVAK Faci lity:[facility] Start: 10-06-2024 Registered Referred Carlos Cavazos - [facility] Start: 10-02-2024 [facility] Start: 10-02-2024 Registered [facility] Start: 09-30-2024 End: 09-30-[address] Monika Staley MD Work Phone: [facility] Work Phone: Start: 09-30-2024 End: 09-30-2024 Departed Referred Karon Corrales MD -[facility] Start: 09-30-2024 Registered Referred Karon casillas MD -[facility] [employer] [facility] Start: 09-30-2024 End: 09-30-2024 ambulatory Karon Corrales OLS Facility:[facility] Start: 09-25-2024 ambulatory Karon vidales OLS Facility:[facility] Start: 09-25-2024 Registered Referred Karon casillas MD -[facility] Start: 09-22-2024 End: 09-22-[address] Monika Staley MD Work Phone: [facility] [employer] Start: 09-22-2024 End: 09-22-2024 Departed Referred Karon Corrales MD -[facility] [facility] Start: 09-22-2024 Registered Referred Karon casillas MD -[facility] [employer] [facility] Start: 09-22-2024 End: 09-22-2024 ambulatory Karon Corrales OLS Facility:[facility] Start: 09-18-2024 End: 09-18-[address] Monika Staley MD Work Phone: [facility] [employer] Start: 09-18-2024 End: 09-18-2024 Departed Referred Karon Corrales MD -[facility] [employer] [facility] Start: 09-18-2024 Registered Referred Karon casillas MD -[facility] [employer] [facility] Start: 09-18-2024 End: 09-18-2024 ambulatory Karon inga OLS Facility:[facility] Start: 09-15-2024 End: 09-15-[address] Monika Staley MD Work Phone: [facility] Work Phone: Start: 09-15-2024 End: 09-15-2024 Departed Referred Carlos Cavazos -[facility] [employer] [facility] Start: 09-15-2024 Registered Referred Carlos Cavazos - [facility] Start: 09-15-2024 End: 09-15-2024 ambulatory Carlos Cavazos OLS Facility:[facility] Start: 09-11-2024 ambulatory Karon Knowles flash OLS Facility:[facility] Start: 09-11-2024 Registered Referred Karon casillas MD -[facility] Start: 09-08-2024 End: 09-08-[address] Monika Staley MD Work Phone: [facility] Work Phone: Start: 09-08-2024 End: 09-08-2024 Departed Referred Karon Corrales MD -[facility] Start: 09-08-2024 Registered Referred Karon casillas MD -[facility] Start: 09-08-2024 End: 09-08-2024 ambulatory Karon Delacruzmarlenegiovanny OLS Facility:[facility] Start: 09-04-2024 End: 09-04-2024 Departed Referred Carlos Cavazos -[facility] Start: 09-04-2024 Registered Referred Carlos Cavazos - [facility] Start: 09-04-2024 End: 09-04-2024 ambulatory Carlos NOVAK Facility:[facility] Start: 09-01-2024 End: 09-01-[address] Monika Staley MD Work Phone: [facility] Work Phone: Start: 09-01-2024 End: 09-01-2024 Departed Referred Carlos Cavazos -[facility] Start: 09-01-2024 Registered Referred Carlos Cavazos - [facility] Start: 09-01-2024 End: 09-01-2024 ambulatory Carlos NOVAK Facility:[facility] Start: 08-28-2024 End: 08-28-[address] Monika Staley MD Work Phone: [facility] Work Phone: Start: 08-28-2024 End: 08-28-2024 Departed Referred Carlos Cavazos -[facility] [employer] Start: 08-28-2024 Registered Referred Carlos Cavazos - [facility] Start: 08-28-2024 End: 08-28-2024 ambulatory Carlos Cavazos OLS Facility:[facility] Start: 08-25-2024 End: 08-25-[address] Monika Staley MD Work Phone: [facility] Work Phone: Start: 08-25-2024 End: 08-25-2024 Departed Referred Karon Corrales MD -[facility] [employer] Start: 08-25-2024 Registered Referred Karon casillas MD -[facility] [employer] Start: 08-25-2024 End: 08-25-2024 ambulatory Karon NOVAK Facility:[facility] Start: 08-21-2024 End: 08-21-[address] Monika Staley MD Work Phone: [facility] Work Phone: Start: 08-21-2024 End: 08-21-2024 Departed Referred [facility] [employer] Start: 08-21-2024 Registered Referred Karon casillas MD -[facility] [employer] Start: 08-21-2024 End: 08-21-2024 ambulatory Karon NOVAK Facility:[facility] Start: 08-18-2024 End: 08-18-[address] Mnoika Staley MD Work Phone: [facility] Work Phone: Start: 08-18-2024 End: 08-18-2024 [facility] Start: 08-18-2024 Registered Referred Karon casillas MD -[facility] Start: 08-18-2024 End: 08-18-2024 ambulatory Carlaamber Davidinga NOVAK Facility:[facility] Start: 08-14-2024 End: 08-14-[address] Monika Staley MD Work Phone: [facility] Work Phone: Start: 08-14-2024 End: 08-14-2024 Departed Referred Karon Corrales MD -[facility] Start: 08-14-2024 Registered Referred Karon casillas MD -[facility] Start: 08-14-2024 End: 08-14-2024 ambulatory Carlaamber Davidinga NOVAK Facility:[facility] Start: 08-11-2024 End: 08-11-2024 Departed Referred Karon Corrales MD -[facility] Start: 08-11-2024 Registered Referred Karon casillas MD -[facility] Start: 08-11-2024 End: 08-11-2024 ambulatory Karon NOVAK Facility:[facility] Start: 08-07-2024 End: 08-07-2024 Departed Referred Carlos Cavazos -[facility] Start: 08-07-2024 Registered Referred Carlos Cavazos - [facility] Start: 08-07-2024 End: 08-07-2024 ambulatory Carlos NOVAK Facility:[facility] Start: 08-04-2024 End: 08-04-[address] Monika Staley MD Work Phone: [facility] Work Phone: Start: 08-04-2024 End: 08-04-2024 Departed Referred Carlos Cavazos -[facility] Start: 08-04-2024 Registered Referred Carlos Reeder [facility] Start: 08-04-2024 End: 08-04-2024 ambulatory Carlos NOVAK Facility:[facility] Start: 07-31-2024 End: 07-31-[address] Monika Staley MD Work Phone: [facility] Work Phone: Start: 07-31-2024 End: 07-31-2024 Departed Referred Karon Corrales MD -[facility] Start: 07-31-2024 Registered Referred Karon casillas MD -[facility] Start: 07-31-2024 End: 07-31-2024 ambulatory Karon elismingshellie SCARLET Facility:[facility] Start: 07-28-2024 End: 07-28-[address] Monika Staley MD Work Phone: [facility] Work Phone: Start: 07-28-2024 End: 07-28-2024 Departed Referred Karon Corrales MD -[facility] Start: 07-28-2024 Registered Referred Karon casillas MD -[facility] Start: 07-28-2024 End: 07-28-2024 ambulatory Carlaraynoe Hernandezelismingshellie SCARLET Facility:[facility] Start: 07-25-2024 End: 07-25-[address] Monika Staley MD Work Phone: [facility] Work Phone: Start: 07-25-2024 End: 07-25-2024 Departed Referred Carlos Cavazos -[facility] Start: 07-25-2024 Registered Referred Carlos Cavazos - [facility] Start: 07-24-2024 End: 07-25-[address] Monika Staley MD Work Phone: [facility] Work Phone: Start: 07-24-2024 End: 07-24-2024 Departed Referred Karon Corrales MD -[facility] Start: 07-24-2024 Registered Referred Karon casillas MD -[facility] [employer] Start: 07-24-2024 End: 07-24-2024 ambulatory Karon Davidinga NOVAK Facility:[facility] Start: 07-21-2024 End: 07-21-[address] Monika Staley MD Work Phone: [facility] Work Phone: Start: 07-21-2024 End: 07-21-2024 Departed Referred Karon Corrales MD -[facility] Start: 07-21-2024 Registered Referred Karon casillas MD -[facility] Start: 07-21-2024 End: 07-21-2024 ambulatory Carlaamber Davidinga NOVAK Facility:[facility] Start: 07-17-2024 End: 07-17-[address] Monika Staley MD Work Phone: [facility] Work Phone: Start: 07-17-2024 End: 07-17-2024 Departed Referred Karon Corrales MD -[facility] Start: 07-17-2024 Registered Referred Karon casillas MD -[facility] Start: 07-17-2024 End: 07-17-2024 ambulatory Carlaamber Davidinga NOVAK Facility:[facility] Start: 07-14-2024 End: 07-14-[address] Monika Staley MD Work Phone: [facility] Work Phone: Start: 07-14-2024 End: 07-14-2024 Departed Referred Carlos Cavazos -[facility] Start: 07-14-2024 Registered Referred Carlos Reeder [facility] Start: 07-14-2024 End: 07-14-2024 ambulatory Carlos NOVAK Facility:[facility] Start: 07-11-2024 End: 07-11-[address] Monika Staley MD Work Phone: [facility] Work Phone: Start: 07-11-2024 End: 07-11-2024 Departed Referred Carlos Cavazos -[facility] [employer] Start: 07-11-2024 Registered Referred Carlos Abdelrahmanviri - [facility] Start: 07-11-2024 End: 07-11-2024 ambulatory Carlos Cavazos OLS Facility:[facility] Start: 07-07-2024 End: 07-07-[address] Monika Staley MD Work Phone: [facility] Work Phone: Start: 07-07-2024 End: 07-07-2024 Departed Referred Karon Corrales MD -[facility] [employer] Start: 07-07-2024 [facility] Start: 07-07-2024 End: 07-07-2024 ambulatory Karon NOVAK Facility:[facility] Start: 07-03-2024 End: 07-03-[address] Monika Staley MD Work Phone: [facility] Work Phone: Start: 07-03-2024 End: 07-03-2024 Departed Referred Kvng Crisostomo MD -[facility] [employer] Start: 07-03-2024 Registered Referred Kvng Crisostomo MD -[facility] [employer] Start: 07-03-2024 End: 07-03-2024 ambulatory Kvng NOVAK Facility:[facility] Start: 06-30-2024 End: 06-30-[address] Monika Staley MD Work Phone: [facility] Work Phone: Start: 06-30-2024 End: 06-30-2024 Departed Referred Kvng Crisostomo MD -[facility] [employer] Start: 06-30-2024 Registered Referred Kvng Crisostomo MD -[facility] Start: 06-30-2024 End: 06-30-2024 ambulatory Kvng NOVAK Facility:[facility] Start: 06-26-2024 ambulatory Kvng NOVAK Fac ility:[facility] Start: 06-26-2024 Registered Referred Kvng Crisostomo MD -[facility] Start: 06-23-2024 End: 06-23-[address] Monika Staley MD Work Phone: [facility] Work Phone: Start: 06-23-2024 End: 06-23-2024 Departed Referred Carlos Cavazos -[facility] Start: 06-23-2024 Registered Referred Carlos Cavazos - [facility] Start: 06-23-2024 End: 06-23-2024 ambulatory Carlos NOVAK Facility:[facility] Start: 06-19-2024 End: 06-19-[address] Monika Staley MD Work Phone: [facility] Work Phone: Start: 06-19-2024 End: 06-19-2024 Departed Referred Kvng Crisostomo MD -[facility] [employer] Start: 06-19-2024 Registered Referred Kvng Crisostomo MD -[facility] [employer] Start: 06-19-2024 End: 06-19-2024 ambulatory Kvng NOVAK Facility:[facility] Start: 06-16-2024 End: 06-16-[address] Monika Staley MD Work Phone: [facility] Work Phone: Start: 06-16-2024 End: 06-16-2024 Departed Referred Kvng Crisostomo MD -[facility] [employer] Start: 06-16-2024 Registered Referred Kvng Crisostomo MD -[facility] [employer] Start: 06-16-2024 End: 06-16-2024 ambulatory Kvng NOVAK Facility:[facility] Start: 06-12-2024 End: 06-12-[address] Monika Staley MD Work Phone: [facility] Work Phone: Start: 06-12-2024 End: 06-12-2024 Departed Referred Kvng Crisostomo MD -[facility] Start: 06-12-2024 Registered Referred Kvng Crisostomo MD -[facility] Start: 06-12-2024 End: 06-12-2024 ambulatory Kvng NOVAK Facility:[facility] Start: 06-09-2024 End: 06-09-[address] Monika Staley MD Work Phone: [facility] Work Phone: Start: 06-09-2024 End: 06-09-2024 Departed Referred Carlos Cavazos -[facility] Start: 06-09-2024 Registered Referred Carlos Cavazos - [facility] [employer] Start: 06-09-2024 End: 06-09-2024 ambulatory Carlos NOVAK Facility:[facility] Start: 06-05-2024 End: 06-05-[address] Monika Staley MD Work Phone: [facility] Work Phone: Start: 06-05-2024 End: 06-05-2024 Departed Referred Kvng Crisostomo MD -[facility] [employer] Start: 06-05-2024 End: 06-05-2024 ambulatory Kvng NOVAK Facility:[facility] Start: 06-02-2024 End: 06-02-[address] Monika Staley MD Work Phone: [facility] Work Phone: Start: 06-02-2024 End: 06-02-2024 Departed Referred Kvng Crisostomo MD -[facility] Start: 06-02-2024 Registered Referred Kvng Crisostomo MD -[facility] Start: 06-02-2024 End: 06-02-2024 ambulatory Kvng NOVAK Facility:[facility] Start: 05-29-2024 End: 05-29-[address] Monika Staley MD Work Phone: [facility] Work Phone: Start: 05-29-2024 End: 05-29-2024 Departed Referred Kvng Crisostomo MD -[facility] Start: 05-29-2024 Registered Referred Kvng Crisostomo MD -[facility] Start: 05-29-2024 End: 05-29-2024 ambulatory Kvng NOVAK Facility:[facility] Start: 05-26-2024 End: 05-26-[address] Monika Staley MD Work Phone: [facility] Work Phone: Start: 05-26-2024 End: 05-26-2024 Departed Referred Carlos Cavazos -[facility] Start: 05-26-2024 Registered Referred Carlos Cavazos - [facility] [employer] Start: 05-26-2024 End: 05-26-2024 ambulatory Carlos NOVAK Facility:[facility] Start: 05-22-2024 ambulatory Kvng NOVAK Fac ility:[facility] Start: 05-22-2024 Registered Referred Kvng Crisostomo MD -[facility] Start: 05-20-2024 End: 05-20-2024 Departed Referred Kvng Crisostomo MD -[facility] Start: 05-19-2024 End: 05-20-2024 ambulatory Kvng NOVAK Facility:[facility] Start: 05-19-2024 Registered Referred Kvng Crisostomo MD -[facility] Start: 05-15-2024 End: 05-15-2024 Departed Referred Kvng Crisostomo MD -[facility] [employer] Start: 05-15-2024 End: 05-15-2024 ambulatory Vicenterocio Andressa NOVAK Facility:[facility] Start: 05-12-2024 End: 05-12-2024 [facility]arted [facility] Start: 05-12-2024 End: 05-12-2024 ambulatory Carlos Cavazos OLS Facility:[facility] Start: 05-09-2024 End: 05-09-2024 Departed Referred Kvng Crisostomo MD -[facility] [employer] Start: 05-09-2024 End: 05-09-2024 ambulatory VicentejulyVijay NOVAK Facility:[facility] Start: 05-08-2024 End: 05-08-2024 Departed Referred [facility] [employer] Start: 05-08-2024 End: 05-08-2024 ambulatory Vicenterocio Andressa NOVAK Facility:[facility] Start: 05-05-2024 End: 05-05-2024 Departed Referred [facility] [employer] Start: 05-05-2024 End: 05-05-2024 ambulatory Vicenterocio Andressa NOVAK Facility:[facility] Start: 05-01-2024 End: 05-01-2024 Departed Referred K[facility]ng [facility] [employer] Start: 05-01-2024 End: 05-01-2024 ambulatory Vicenterocio Andressa NOVAK Facility:[facility] Start: 04-28-2024 End: 04-28-2024 Departed Referred Carlos Pradoctuary [employer] Start: 04-28-2024 End: 04-28-2024 ambulatory Carlos Cavazos OLS Facility:[facility] Start: 04-24-2024 End: 04-24-2024 Departed Referred Kvng [facility]berg [employer] Start: 04-24-2024 End: 04-24-2024 ambulatory Aviskarolmin Crisostomo OLS Facility:[facility] Start: 04-21-2024 End: 04-21-2024 Departed Referred Peter Katsaros -[facility] Start: 04-21-2024 End: 04-21-2024 ambulatory Carlos NOVAK Facility:[facility] Start: 04-17-2024 ambulatory Kvng NOVAK Fac ility:[facility] Start: 04-17-2024 Registered Referred Kvng Crisostomo MD -[facility] Start: 04-14-2024 ambulatory Kvng NOVAK Fac ility:[facility] Start: 04-14-2024 Registered Referred Kvng Crisostomo MD -[facility] Start: 04-10-2024 End: 04-10-2024 Departed Referred Kvng Crisostomo MD -[facility] Start: 04-10-2024 End: 04-10-2024 ambulatory Kvng NOVAK Facility:[facility] Start: 04-07-2024 End: 04-07-2024 Departed Referred Carlos Cavazos -[facility] Start: 04-07-2024 End: 04-07-2024 ambulatory Carlos NOVAK Facility:[facility] Start: 04-04-2024 ambulatory Kvng NOVAK Fac ility:[facility] Start: 04-04-2024 Registered Referred Kvng Crisostomo MD -[facility] Start: 03-31-2024 End: 03-31-2024 Departed Referred Carlos Cavazos -[facility] Start: 03-31-2024 End: 03-31-2024 ambulatory Carlos NOVAK Facility:[facility] Start: 03-27-2024 End: 03-27-2024 Departed Referred [facility] Start: 03-27-2024 End: 03-27-2024 ambulatory [facility] Facility:[facility] Start: 03-24-2024 End: 03-24-2024 Departed Referred Kvng Crisostomo MD -[facility] Start: 03-24-2024 End: 03-24-2024 ambulatory Kvng NOVAK Facility:[facility] Start: 03-20-2024 End: 03-20-2024 Departed Referred [facility] -[facility] Start: 03-20-2024 End: 03-20-2024 ambulatory Shiela Luís Facility:[facility] Start: 03-19-2024 End: 03-19-2024 Departed Referred Kvng Crisostomo MD -[facility] Start: 03-19-2024 End: 03-19-2024 ambulatory Kvng NOVAK Facility:[facility] Start: 03-18-2024 End: 03-18-2024 Departed Referred [facility] -[facility] Start: 03-18-2024 End: 03-18-2024 ambulatory Shiela Luís Facility:[facility] Start: 03-17-2024 End: 03-17-2024 Departed Referred [facility] Start: 03-17-2024 End: 03-17-2024 ambulatory Shiela Luís Facility:[facility] Start: 03-14-2024 End: 03-14-2024 Departed Referred Carlos Cavazos -[facility] Start: 03-14-2024 End: 03-14-2024 ambulatory Carlos NOVAK Facility:[facility] Start: 03-13-2024 End: 03-13-2024 Departed Referred [facility] Start: 03-13-2024 End: 03-13-2024 ambulatory [facility] Facility:[facility] Start: 03-10-2024 End: 03-10-2024 ambulatory [facility] Facility:[facility] Start: 03-06-2024 End: 03-06-2024 ambulatory [facility] Facility:[facility] Start: 03-03-2024 End: 03-03-2024 ambulatory [facility] Facility:[facility] Start: 02-28-2024 End: 02-28-2024 ambulatory [facility] Facility:[facility] Start: 02-25-2024 End: 02-25-2024 ambulatory Carlos NOVAK Facility:[facility] Start: 02-21-2024 End: 02-21-2024 ambulatory [facility] Facility:[facility] Start: 02-18-2024 End: 02-18-2024 ambulatory [facility] Facility:[facility] Start: 02-14-2024 End: 02-14-2024 ambulatory [facility] Facility:[facility] Start: 02-12-2024 End: 02-12-2024 ambulatory Carlos NOVAK Facility:[facility] Start: 02-11-2024 End: 02-11-2024 ambulatory [facility] Facility:[facility] Start: 02-08-2024 End: 02-08-2024 ambulatory Carlos NOVAK Facility:[facility] Start: 02-07-2024 End: 02-07-2024 ambulatory Carlos NOVAK Facility:[facility] Start: 02-04-2024 End: 02-04-2024 ambulatory Carlos NOVAK Facility:[facility] Start: 02-01-2024 ambulatory Carlos Cavazos OLS Faci lity:[facility] Start: 01-30-2024 End: 01-30-2024 ambulatory Carlos Lópezsaviri OLS Facility:[facility] Start: 01-29-2024 End: 01-29-2024 ambulatory [facility] Facility:[facility] Start: 01-21-2024 End: 01-21-2024 ambulatory Carlos NOVAK Facility:[facility] Start: 01-14-2024 End: 01-14-2024 ambulatory Carlos Cavazos OLS Facility:[facility] Start: 01-11-2024 ambulatory Carlos Lópezsaviri OLS Faci lity:[facility] Start: 01-10-2024 End: 01-10-2024 ambulatory [facility] Facility:[facility] Start: 01-08-2024 End: 01-08-2024 ambulatory Carlos NOVAK Facility:[facility] Start: 01-01-2024 End: 01-02-2024 ambulatory Carlos Lópezsaviri NOVAK Facility:[facility] Start: 12-27-2023 End: 12-27-2023 ambulatory Carlos NOVAK Facility:[facility] Start: 09-13-2023 End: 09-13-2023 ambulatory [facility] Start: 09-13-2023 End: 09-13-2023 Office outpatient visit 25 minutes Rebecca Buck MD Work Phone: [facility] Urology Comment on above: Left flank pain (Christina magui Dx); BPH with urinary obstruction; History of kidney stones Start: 09-06-2023 End: 09-07-2023 ambulatory [facility] Start: 09-06-2023 End: 09-06-2023 Subsequent hospital visit by physician Rebecca Buck MD Work Phone: [facility] CT Imaging Comment on above: Left flank pain; Calculus of ureter Start: 08-31-2023 ambulatory Eloise Stern RN [facility] Clinical Communication Start: 08-31-2023 Patient encounter procedure Eloise Stern RN [facility] Clinical Communication Start: 08-21-2023 Telephone encounter Rebecca Buck MD Work Phone: [facility] Clinical Communication Comment on above: CT appt Boaz advice Start: 08-21-2023 Registered Referred [facility] [employer] Start: 08-13-2023 End: 08-13-2023 ambulatory [facility] Start: 08-13-2023 End: 08-13-2023 Office outpatient new 45 minutes Rebecca Buck MD Work Phone: [facility] Urology Comment on above: Left flank pain (Christnia magui Dx); Calculus of ureter; Disease of prostate; BPH with urinary obstruction Start: 08-03-2023 End: 08-03-2023 ambulatory [facility] Work Phone: Start: 08-03-2023 End: 08-03-2023 Departed Referred [facility] [employer] Start: 07-20-2023 End: 07-20-2023 ambulatory [facility] Work Phone: Start: 07-20-2023 End: 07-20-2023 Departed Referred [facility] Start: 07-20-2023 Registered Referred [facility] Start: 07-18-2023 End: 07-18-2023 ambulatory [facility] Work Phone: Start: 07-18-2023 End: 07-18-2023 [facility] Start: 07-18-2023 [facility] Start: 07-16-2023 End: 07-16-2023 ambulatory [facility] Work Phone: Start: 07-16-2023 End: 07-16-2023 [facility] Start: 07-16-2023 [facility] Start: 07-13-2023 End: 07-13-2023 ambulatory [facility] Work Phone: Start: 07-13-2023 End: 07-13-2023 [facility] Start: 07-13-2023 [facility] Start: 07-12-2023 End: 07-12-2023 ambulatory [facility] Work Phone: Start: 07-12-2023 End: 07-12-2023 [facility] Start: 07-12-2023 Registered Referred [facility] [employer] Start: 07-05-2023 End: 07-05-2023 ambulatory [facility] Work Phone: Start: 07-05-2023 End: 07-05-2023 [facility] Start: 07-05-2023 Registered Referred [facility] [employer] Start: 07-02-2023 Registered Referred [facility] [employer] Start: 06-28-2023 End: 06-28-2023 ambulatory [facility] Work Phone: Start: 06-28-2023 End: 06-28-2023 Departed Referred [facility] Start: 06-28-2023 [facility] Start: 06-25-2023 Telephone encounter Rebecca Buck MD Work Phone: [facility] Start: 06-25-2023 End: 06-25-2023 ambulatory [facility] Work Phone: Start: 06-25-2023 End: 06-25-2023 [facility] Start: 06-25-2023 [facility] Start: 06-21-2023 End: 06-21-2023 ambulatory [facility] Work Phone: Start: 06-21-2023 End: 06-21-2023 [facility] Start: 06-21-2023 [facility] Start: 06-13-2023 End: 06-13-2023 ambulatory [facility] Work Phone: Start: 06-13-2023 End: 06-13-2023 [facility]ed [facility] [facility] Start: 06-06-2023 End: 06-06-2023 ambulatory [facility] Work Phone: Start: 06-06-2023 End: 06-06-2023 Departed Referred [facility] Start: 06-06-2023 Registered Referred [facility] Start: 05-23-2023 End: 05-23-2023 ambulatory [facility] Work Phone: Start: 05-23-2023 End: 05-23-2023 Departed Referred [facility] Start: 05-09-2023 End: 05-09-2023 [facility] Start: 05-09-2023 Registered Referred [facility] Start: 04-23-2023 End: 04-23-2023 [facility]ed [facility] Start: 04-09-2023 End: 04-09-2023 ambulatory [facility] Work Phone: Start: 04-09-2023 End: 04-09-2023 [facility] Start: 04-09-2023 [facility] Start: 04-02-2023 End: 04-02-2023 ambulatory [facility] Work Phone: Start: 04-02-2023 End: 04-02-2023 [facility]ed [facility] Start: 04-02-2023 [facility] Start: 03-26-2023 End: 03-26-2023 ambulatory [facility] Work Phone: Start: 03-26-2023 End: 03-26-2023 [facility]ed [facility] Start: 03-26-2023 [facility] Start: 03-22-2023 End: 03-22-2023 ambulatory [facility] Work Phone: Start: 03-22-2023 End: 03-22-2023 [facility]ed [facility] Start: 03-22-2023 [facility] Start: 03-08-2023 End: 03-08-2023 ambulatory [facility] Work Phone: Start: 03-08-2023 End: 03-08-2023 [facility]ed [facility] Start: 02-22-2023 End: 02-22-2023 ambulatory [facility] Work Phone: Start: 02-22-2023 End: 02-22-2023 Departed Referred [facility] Start: 02-22-2023 Registered Referred [facility] Start: 02-15-2023 End: 02-15-2023 ambulatory [facility] Work Phone: Start: 02-15-2023 End: 02-15-2023 Departed Referred [facility] Start: 02-15-2023 [facility] Start: 02-08-2023 End: 02-08-2023 ambulatory [facility] Work Phone: Start: 02-08-2023 End: 02-08-2023 Departed Referred [facility] Start: 01-31-2023 End: 01-31-2023 ambulatory [facility] Work Phone: Start: 01-31-2023 End: 01-31-2023 Departed Referred [facility] Start: 01-31-2023 Registered Referred [facility] Start: 01-29-2023 End: 01-29-2023 Departed Referred [facility] Start: 01-29-2023 Registered Referred [facility] Start: 01-26-2023 End: 01-26-2023 Departed Referred [facility] Start: 01-26-2023 Reg[facility] Start: 01-24-2023 End: 01-24-2023 Departed Referred [facility] Start: 01-24-2023 Registered Referred [facility] Start: 01-22-2023 End: 01-22-2023 ambulatory [facility] Work Phone: Start: 01-22-2023 End: 01-22-2023 [facility] Start: 01-22-2023 [facility] Start: 01-10-2023 End: 01-10-2023 ambulatory [facility] Work Phone: Start: 01-10-2023 End: 01-10-2023 [facility]ed [facility] Start: 01-10-2023 [facility] Start: 12-27-2022 End: 12-27-2022 ambulatory [facility] Work Phone: Start: 12-27-2022 End: 12-27-2022 [facility]ed [facility] Start: 12-27-2022 [facility] Start: 12-21-2022 End: 12-21-2022 ambulatory [facility] Work Phone: Start: 12-21-2022 End: 12-21-2022 Dep[facility]ed [facility] Start: 12-21-2022 [facility] Start: 12-14-2022 End: 12-14-2022 ambulatory [facility] Work Phone: Start: 12-14-2022 End: 12-14-2022 Dep[facility]ed [facility] Start: 12-14-2022 [facility] Start: 12-07-2022 End: 12-07-2022 ambulatory [facility] Work Phone: Start: 12-07-2022 End: 12-07-2022 Dep[facility]ed [facility] Start: 12-07-2022 [facility] Start: 11-24-2022 End: 11-24-2022 ambulatory [facility] Work Phone: Start: 11-24-2022 End: 11-24-2022 Departed Referred [facility] Start: 11-24-2022 Registered [facility] Start: 11-23-2022 End: 11-23-2022 ambulatory [facility] Work Phone: Start: 11-23-2022 End: 11-23-2022 Departed Referred [facility] Start: 11-23-2022 Registered [facility] Start: 11-22-2022 End: 11-22-2022 ambulatory [facility] Work Phone: Start: 11-22-2022 End: 11-22-2022 [facility]ed [facility] Start: 11-22-2022 [facility] Start: 11-09-2022 End: 11-09-2022 ambulatory [facility] Work Phone: Start: 11-09-2022 End: 11-09-2022 Departed Referred [facility] Start: 11-09-2022 Registered [facility] Start: 10-26-2022 End: 10-26-2022 Departed Referred [facility] Start: 10-26-2022 Registered [facility] Start: 10-12-2022 End: 10-12-2022 ambulatory [facility] Work Phone: Start: 10-12-2022 End: 10-12-2022 Departed Referred [facility] Start: 10-12-2022 Registered [facility] Start: 10-05-2022 End: 10-05-2022 Departed Referred [facility] Start: 10-05-2022 Registered [facility] Start: 09-28-2022 End: 09-28-2022 ambulatory [facility] Work Phone: Start: 09-28-2022 End: 09-28-2022 [facility]ed [facility] Start: 09-14-2022 End: 09-14-2022 Departed Referred [facility] Start: 08-31-2022 End: 08-31-2022 [facility]ed [facility] Start: 08-31-2022 [facility] Start: 08-23-2022 End: 08-23-2022 ambulatory [facility] Work Phone: Start: 08-23-2022 End: 08-23-2022 Departed [facility] Start: 08-23-2022 [facility] Start: 08-17-2022 End: 08-17-2022 ambulatory [facility] Work Phone: Start: 08-17-2022 End: 08-17-2022 Dep[facility]ed [facility] Start: 08-17-2022 [facility] Start: 08-14-2022 End: 08-14-2022 ambulatory [facility] Work Phone: Start: 08-14-2022 End: 08-14-2022 Dep[facility]ed [facility] Start: 08-14-2022 [facility] Start: 07-31-2022 End: 07-31-2022 ambulatory [facility] Work Phone: Start: 07-31-2022 End: 07-31-2022 Dep[facility]ed [facility] Start: 07-31-2022 [facility] Start: 07-24-2022 End: 07-24-2022 ambulatory [facility] Work Phone: Start: 07-24-2022 End: 07-24-2022 Departed Referred [facility] Start: 07-24-2022 Registered Referred [facility] Start: 07-20-2022 End: 07-20-2022 Dep[facility]ed [facility] Start: 07-20-2022 Registered Referred [facility] Start: 07-17-2022 End: 07-17-2022 Dep[facility]ed [facility] Start: 07-17-2022 Registered Referred [facility] Start: 07-11-2022 Registered Referred [facility] Start: 07-10-2022 End: 07-10-2022 ambulatory [facility] Work Phone: Start: 07-10-2022 End: 07-10-2022 Departed Referred [facility] Start: 07-10-2022 Registered Referred [facility] Start: 07-03-2022 End: 07-03-2022 ambulatory [facility] Work Phone: Start: 07-03-2022 End: 07-03-2022 Dep[facility]ed [facility] Start: 07-03-2022 Registered Referred [facility] Start: 06-27-2022 End: 06-27-2022 ambulatory [facility] Work Phone: Start: 06-27-2022 End: 06-27-2022 Dep[facility]ed [facility] Start: 06-27-2022 [facility] Start: 06-13-2022 End: 06-13-2022 ambulatory [facility] Work Phone: Start: 06-13-2022 End: 06-13-2022 Dep[facility]ed [facility] Start: 06-13-2022 [facility] Start: 06-06-2022 End: 06-06-2022 ambulatory [facility] Work Phone: Start: 06-06-2022 End: 06-06-2022 [facility]ed [facility] Start: 06-06-2022 [facility] Start: 05-30-2022 End: 05-30-2022 ambulatory [facility] Work Phone: Start: 05-30-2022 End: 05-30-2022 Dep[facility]ed [facility] Start: 05-30-2022 [facility] Start: 05-16-2022 End: 05-16-2022 ambulatory [facility] Work Phone: Start: 05-16-2022 End: 05-16-2022 [facility]ed [facility] Start: 05-16-2022 [facility] Start: 05-02-2022 End: 05-02-2022 ambulatory [facility] Work Phone: Start: 05-02-2022 End: 05-02-2022 Dep[facility]ed [facility] Start: 05-02-2022 [facility] Start: 04-27-2022 End: 04-27-2022 ambulatory [facility] Work Phone: Start: 04-27-2022 End: 04-27-2022 Dep[facility]ed [facility] Start: 04-27-2022 [facility] Start: 04-26-2022 End: 04-26-2022 ambulatory [facility] Work Phone: Start: 04-26-2022 End: 04-26-2022 Dep[facility]ed [facility] Start: 04-11-2022 End: 04-11-2022 ambulatory [facility] Work Phone: Start: 04-11-2022 End: 04-11-2022 Dep[facility]ed [facility] Start: 03-28-2022 End: 03-28-2022 Dep[facility]ed [facility] Start: 03-28-2022 [facility] Start: 03-23-2022 End: 03-23-2022 Departed [facility] Start: 03-23-2022 [facility] Start: 03-16-2022 End: 03-16-2022 ambulatory [facility] Work Phone: Start: 03-16-2022 End: 03-16-2022 Dep[facility]ed [facility] Start: 03-16-2022 [facility] Start: 03-09-2022 End: 03-09-2022 ambulatory [facility] Work Phone: Start: 03-09-2022 End: 03-09-2022 [facility] Start: 03-09-2022 [facility] Start: 03-06-2022 End: 03-06-2022 ambulatory [facility] Work Phone: Start: 03-06-2022 End: 03-06-2022 Dep[facility]ed [facility] Start: 03-06-2022 [facility] Start: 03-02-2022 End: 03-03-2022 Emergency department patient visit UNKNOWN PROVIDER [facility] Start: 03-02-2022 End: 03-02-2022 Emergency department patient visit Lanette Munguia DO Work Phone: [facility] Emergency Dept Comment on above: Fall, initial encoun ter (Primary Dx); Anticoagulated Start: 02-20-2022 End: 02-20-2022 Departed Referred [facility] Start: 02-20-2022 Registered Referred [facility] Start: 02-13-2022 End: 02-13-2022 ambulatory [facility] Work Phone: Start: 02-13-2022 End: 02-13-2022 Departed Referred [facility] Start: 02-13-2022 Registered Referred [facility] Start: 02-06-2022 End: 02-06-2022 ambulatory [facility] Work Phone: Start: 02-06-2022 End: 02-06-2022 Departed [facility] Start: 02-06-2022 Registered Referred [facility] Start: 01-30-2022 End: 01-30-2022 Departed Referred [facility] Start: 01-30-2022 Registered Referred [facility] Start: 01-26-2022 End: 01-26-2022 ambulatory [facility] Work Phone: Start: 01-26-2022 End: 01-26-2022 [facility] Start: 01-26-2022 Registered Referred [facility] Start: 01-19-2022 End: 01-19-2022 ambulatory [facility] Work Phone: Start: 01-19-2022 End: 01-19-2022 Departed [facility] Start: 01-19-2022 Registered Referred [facility] [employer] Start: 01-17-2022 ambulatory [facility] Start: 01-10-2022 ambulatory [place] [facility] Start: 01-10-2022 End: 01-10-2022 ambulatory [facility] Work Phone: Start: 01-10-2022 End: 01-10-2022 [facility] Start: 01-10-2022 [facility] Start: 01-06-2022 AUDIT Shiela Stua rt Work Phone: [facility] Work Phone: Start: 01-05-2022 End: 01-05-2022 [facility] Start: 01-05-2022 [facility]istered [facility] Start: 12-30-2021 End: 12-30-2021 [facility] Start: 12-30-2021 [facility] Start: 12-28-2021 End: 12-28-2021 ambulatory [facility] Work Phone: Start: 12-28-2021 End: 12-28-2021 [facility] Start: 12-28-2021 [facility] Start: 12-26-2021 End: 12-26-2021 ambulatory [facility] Work Phone: Start: 12-26-2021 End: 12-26-2021 [facility] Start: 12-26-2021 [facility] Start: 12-22-2021 End: 12-22-2021 ambulatory [facility] Work Phone: Start: 12-22-2021 End: 12-22-2021 [facility] Start: 12-22-2021 Registered Referred [facility] [employer] Start: 12-22-2021 End: 12-22-2021 [facility] Start: 12-21-2021 End: 12-22-2021 Emergency department patient visit Sharon Olivia MD Work Phone: [facility] Emergency Dept Comment on above: Heel ulceration, lef t, with unspecified severity (HCC) (Primary Dx) Start: 12-19-2021 End: 12-19-2021 ambulatory [facility] Work Phone: Start: 12-19-2021 End: 12-19-2021 Departed Referred [facility] Start: 12-19-2021 Registered Referred [facility] Start: 12-12-2021 End: 12-12-2021 ambulatory [facility] Work Phone: Start: 12-12-2021 End: 12-12-2021 [facility] [employer] Start: 12-12-2021 Registered [facility] Start: 12-08-2021 End: 12-08-2021 ambulatory [facility] Work Phone: Start: 12-08-2021 End: 12-08-2021 Departed [facility] [employer] Start: 12-08-2021 [facility]istered [facility] [employer] Start: 12-05-2021 End: 12-05-2021 ambulatory [facility] Work Phone: Start: 12-05-2021 End: 12-05-2021 [facility] Start: 12-05-2021 Registered Referred [facility] [employer] Start: 12-01-2021 End: 12-01-2021 [facility] Start: 12-01-2021 Registered [facility] Start: 11-28-2021 End: 11-28-2021 [facility] Start: 11-28-2021 [facility] Start: 11-25-2021 Rx Renewal Monika Elias rt Work Phone: [id number] Work Phone: Start: 11-23-2021 End: 11-23-2021 [facility] Start: 11-23-2021 Registered [facility] Start: 11-22-2021 End: 11-22-2021 [facility]ed [facility] Start: 11-22-2021 Registered [facility] Start: 11-21-2021 End: 11-21-2021 [facility] Start: 11-15-2021 AUDIT Monika Elias rt Work Phone: [id number] Work Phone: Start: 11-14-2021 End: 11-14-2021 [facility] Start: 11-14-2021 Registered [facility] Start: 11-08-2021 End: 11-08-2021 [facility] Start: 11-08-2021 Registered [facility] Start: 11-04-2021 End: 11-04-2021 [facility] Start: 11-04-2021 [facility]istered [facility] Start: 10-31-2021 End: 11-01-2021 Emergency department patient visit UNKNOWN PROVIDER [facility] Start: 10-31-2021 End: 11-01-2021 Emergency department patient visit Dante Kim MD Work Phone: [facility] Emergency Dept Comment on above: Other fatigue (Prima ry Dx) Start: 10-31-2021 End: 10-31-2021 Departed Referred [facility] [employer] Start: 10-21-2021 End: 10-29-2021 Evaluation and management of inpatient UNKNOWN PROVIDER [facility] Start: 10-21-2021 End: 10-29-2021 Evaluation and management of inpatient Lisa Michelle DO Work Phone: [facility] Comment on above: Leg swelling (Primar y Dx); Acute deep vein thrombosis (DVT) of proximal vein of lower extremity, unspecified laterality (HCC) Start: 10-20-2021 End: 10-20-2021 Departed Referred [facility] [employer] Start: 10-17-2021 Telephone encounter Nicole davis MD Work Phone: [facility] Comment on above: Missed Appointment Start: 09-19-2021 End: 09-19-2021 Departed Referred [facility] [employer] Start: 11-02-2020 AUDIT Monika Elias rt Work Phone: [facility] Work Phone: Start: 10-27-2020 AUDIT Monika Elias rt Work Phone: [facility] Work Phone: Start: 07-13-2020 Patient encounter procedure Monika Staley [facility] Work Phone: Start: 04-13-2020 Patient encounter procedure Wing Ritter [facility] Work Phone: Start: 04-07-2020 Patient encounter procedure Wing Ritter [facility] Work Phone: Start: 03-18-2020 Patient encounter procedure Wing Ritter [facility] Work Phone: Start: 01-20-2020 Patient encounter procedure Monika Staley MD, [facility] Work Phone: Start: 11-13-2019 End: 11-13-2019 Subsequent hospital visit by physician Desmond [facility] Comment on above: Non-pressure chronic ulcer [...] Start: 10-26-2021 Electroencephalogram w/rec awake&asleep Sarina Pineda [employer] Work Phone: Start: 06-22-2022 Ct head/brain w/o co ntrast material Sarina Isabel Edwin [employer] Work Phone: Start: 10-26-2021 Prothrombin time Andres Sheridan MD Work Phone: Start: 10-25-2021 Speech and language therapy regime Sarina Isabel Edwin [employer] Work Phone: Start: 10-25-2021 Prothrombin time Andres [...] 10-21-2021 Blood count reticulo cyte automated Ellen Shilpa Niesha [employer] Work Phone: Start: 10-21-2021 C-reactive protein Loua nn Shilpa Scherer [employer]CAST ENG[employer] Work Phone: Start: 10-21-2021 Non-invas physiologi c std extremity art 2 level Shruthi Malik [employer] Work Phone: Start: 10-21-2021 Radex calcaneus mini mum 2 views Shruthi Malik [employer] Work Phone: Start: 10-21-2021 Dup-scan xtr veins [...] Comment: Speci men Type: BLOOD SPECIMENOrdering Facility: [facility] Address: [address] [place] [address] Performed By: #### T SCR ####[facility] BLOOD BANKCLIA [id number] [address] Start: 08-04-2021 Antibody screen Comment on above: Order Comment: Speci men Type: BLOOD SPECIMENOrdering Facility: [facility] Address: [address] [place] [address] Performed By: #### T SCR ####[facility] BLOOD BANKCLIA [id number] [address] Start: 08-01-2021 Antibody screen Comment on above: Order Comment: Speci men Type: BLOOD SPECIMENOrdering Facility: [facility] Address: [address] [place] [address] Performed By: #### T SCR ####[facility] BLOOD BANKCLIA [id number] [address] Start: 06-07-2021 Antibody screen Comment on above: Order Comment: Speci men Type: BLOOD SPECIMEN Performed By: #### T SCR ####[facility] BLOOD BANKCLIA [id number] [place] [address] [facility] Start: 09-02-2020 Lipid 1996 panel - S bradly or Plasma Rebecca Buck MD Work Phone: Start: 04-07-2020 Echocardiography Wing [employer] Start: 11-13-2019 Radiologic examinati on tibia & fibula 2 views 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 (Senior Ui Ux Designer) Debbie Work Phone: Hernia repair Monika Elias rt History of Cholecystotomy An yvette Staley History of Creation Of Subdural-Peritoneal CSF Shunt Monika Staley History of Interrupt ion Inferior Vena Cava Maruy Filter Placement Monika Staley Urine culture Plan of Treatment Date Care Activity Detail Author Start: 09-22-2026 DTaP/Tdap/Td vaccine (2 - Td or Tdap) DTaP/Tdap/Td vaccine (2 - Td or Tdap) [facility] Start: 09-22-2026 DTaP/Tdap/Td vaccine (2 - Td) DTaP/Tdap/Td vaccine (2 - Td) [facility] Work Phone: Start: 09-22-2026 DTaP/Tdap/Td Vaccine s (2 - Td or Tdap) DTaP/Tdap/Td Vaccines (2 - Td or Tdap) [facility] Start: 09-02-2025 Lipid panel Lipid Panel [facility] Start: 08-22-2024 DIABETES SCREEN [facility]ABETES [facility]CREEN [facility] Start: 12-04-2023 Lipid panel Lipids [facility] Start: 12-04-2023 Lipid screen Lipid screen [facility] Work Phone: Start: 09-13-2023 End: 09-13-2023 Patient encounter procedure 09/13/2023 11:30 AM EDT Office Visit [facility] [address] [place] [id number] Rebecca Buck MD [address] [place] [address] [facility] Start: 08-31-2023 End: 08-31-2023 Patient encounter procedure 08/31/2023 9:30 AM EDT Appointment [facility] [address] [place] [id number] Rebecca Buck MD [address] [place] [address] [facility] [address] [facility] Start: 08-13-2023 End: 08-12-2024 Basic metabolic 1998 panel - Serum or Plasma Basic metabolic panel Lab Routine Calculus of ureter Expected: 08/13/2023 (Approximate), Expires: 08/12/2024 [facility] Comment on above: Expected: 08/13/2023 (Approximate), Expires: 08/12/2024 Start: 08-13-2023 End: 08-12-2024 CT Abdomen WO contrast CT abdomen pelvis wo IV contrast Imaging Routine Left flank pain Calculus of ureter Expected: 08/13/2023, Expires: 08/12/2024 [facility] Comment on above: Expected: 08/13/2023 , Expires: 08/12/2024 Start: 08-13-2023 End: 02-12-2024 PSA, Monitoring ([facility]) PSA, Monitoring ([facility]) Lab Routine Disease of prostate Expected: 08/13/2023 (Approximate), Expires: 02/12/2024 [facility] [employer] Work Phone: Comment on above: Expected: 08/13/2023 (Approximate), Expires: 02/12/2024 Start: 08-13-2023 End: 08-13-2023 Patient encounter procedure 08/13/2023 10:00 AM EDT Office Visit [facility] Urology [address] [place] [address] Rebecca Buck MD [address] [facility] [address] [place] [address] [facility] Start: 07-17-2023 Bacteria identified in Urine by Culture [facility] Start: 07-17-2023 [facility] Start: 07-16-2023 Measurement of substance [facility] Start: 05-07-2023 Medicare Advantage A nnual Wellness Visit Medicare Advantage Annual Wellness Visit [facility] Start: 03-02-2023 Creatinine measurement Creatinine Le carmela [facility] Start: 03-02-2023 Potassium measurement Potassium Leve l [facility] Start: 08-22-2022 Diabetes mellitus screening Diabetes Screening [facility] Start: 01-05-2022 Influenza vaccination [facility] Start: 12-23-2021 EPV, Provider: Wing Ritter, Status: Pen, Time: 9:30 AM EPV, Provider: Wing Ritter, Status: Pen, Time: 9:30 AM QL-Whctbeynoa-Amu ma Work Phone: Start: 12-05-2021 Influenza vaccination Flu vaccine (# 1) [facility] Start: 12-05-2021 Blood chemistry [facility] Work Phone: Start: 12-05-2021 Complete blood count [facility] Work Phone: Start: 12-05-2021 [facility] Work Phone: Start: 12-01-2021 [facility] Work Phone: Start: 08-05-2021 COVID-19 VACCINE (4 - Booster for Moderna series) COVID-19 VACCINE (4 - Booster for Moderna series) [facility] Start: 08-05-2021 COVID-19 Vaccine (4 - Booster for Pfizer series) COVID-19 Vaccine (4 - Booster for Pfizer series) [facility] Start: 06-01-2021 COVID-19 Vaccine (4 - Booster for Pfizer series) COVID-19 Vaccine (4 - Booster for Pfizer series) [facility] Start: 05-07-2021 ADVANCE DIRECTIVE DISCUSSION ADVANCE DIRECTIVE DISCUSSION [facility] Start: 08-11-2020 Screening for malign ant neoplasm of colon [facility] Start: 07-30-2020 Screening for malign ant neoplasm of colon [facility] Start: 01-20-2020 Echocardiography Echocardiogram MP-C ardiology-Med r[facility] [address] [place] Work Phone: Start: 09-01-2020 Influenza vaccination INFLUENZA (#1) [facility] Start: 12-04-2019 Annual Wellness Visi t (AWV) Annual Wellness Visit (AWV) [facility] Start: 12-04-2019 Creatinine monitoring Creatinine mon itoring [facility] Work Phone: Start: 12-04-2019 Hepatitis C screen Hepatitis C rivera n [facility] Work Phone: Comment on above: Postponed from 05/06 (Patient Refused) Start: 12-04-2019 Potassium monitoring Potassium monit oring [facility] Work Phone: Start: 12-04-2019 Prostate specific an tigen measurement Prostate Specific Antigen (PSA) Screening or Monitoring [facility] Start: 12-04-2019 Shingles Vaccine (1 of 2) Day gles Vaccine (1 of 2) [facility] Work Phone: Comment on above: Postponed from 05/06 (Patient Refused) Start: 06-07-2019 Colon Cancer Screen FIT/FOBT [facility] Work Phone: Start: 08-14-2017 LIPID SCREEN LIPID SCREEN [facility] Start: 2017 ADVANCE DIRECTIVE DISCUSSION ADVANCE DIRECTIVE DISCUSSION [facility] Start: 2017 PNEUMOCOCCAL: 65+ (1 - PCV) PNEUMOCOCCAL: 65+ (1 - PCV) [facility] Start: 2017 PNEUMOVAX AGE 65 AND OVER WITH 5YR LOOKBACK (#1) PNEUMOVAX AGE 65 AND OVER WITH 5YR LOOKBACK (#1) [facility] Start: 04-14-2016 DIABETES SCREEN DIABETES SCREEN [facility] Start: 2012 RSV Immunization age d 60 or older (1 - 1-dose 60+ series) RSV Immunization aged 60 or older (1 - 1-dose 60+ series) [facility] Start: 2007 PROSTATE CANCER SCRE ENING DISCUSSION PROSTATE CANCER SCREENING DISCUSSION [facility] Start: 2002 Shingles vaccine (1 of 2) Day gles vaccine (1 of 2) [facility] Start: 2002 SHINGRIX VACCINE (1 of 2) DAY GRIX VACCINE (1 of 2) [facility] Start: 2002 Tuberculosis screening COLOREC MONIQUE CANCER SCREENING,SEE MODIFIER [facility] Start: 2002 Zoster Vaccines (1 of 2) Zoste r Vaccines (1 of 2) [facility] Start: 1997 COLOGUARD (FIT-DNA) COLOGUARD (FIT-D NA) [facility] Start: 1997 Colonoscopy COLONOSCOPY [facility] Start: 1997 COLORECTAL CANCER SCREENING COLORECTAL CANCER SCREENING [facility] Start: [address] COLONOGRAPHY [facility] Start: 1997 FECAL OCCULT BLOOD FECAL OCCULT BLOO D [facility] Start: 1997 Screening for malign ant neoplasm of colon [facility] Start: 1997 SIGMOIDOSCOPY SIGMOIDOSCOPY [facility] Start: 1987 Diabetes screen Diabetes screen [facility] Start: 1971 Urine microalbumin profile DTAP,TDAP,TD (1 - Tdap) [facility] Start: 1970 ANNUAL PCP TEAM 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 DESIGNER KEESHA DISEASE VISIT ANNUAL PCP TEAM CHRONIC DISEASE VISIT [facility] Start: 1970 BP CONTROLLED (<130/80) BP CONTROLLE D (<130/80) [facility] Start: 1970 Diabetes mellitus screening Diabetes Screening [facility] Start: 1970 HEPATITIS C SCREENING HEPATITIS C [facility] Start: 1970 Hepatitis C screening S [facility] Start: 1964 Adult depression screening assessment DEPRESSION SCREENING [facility] Start: 1964 Depression Screen Depression Screen [facility] Start: 1962 Diabetic foot examination Diabetes: Foot Exam [facility] Start: 1962 Glaucoma screening Diabetes: R etinopathy Screening [facility] Start: 1962 Preventive dental service Diabetes: Dental Exam [facility] Start: 1952 Echocardiography Echocardiogram [facility] Start: 1952 Hemoglobin A1c measurement Diabetes: Hemoglobin A1C [facility] Start: 1952 Lipid panel Lipid Panel [facility] Start: 1952 Screening for malign ant neoplasm of colon [facility] Bacteria identified in Urine by Culture Urine Culture [facility] Work Phone: End: 03-02-2022 CBC W Auto Differential panel - Blood CBC with Auto Differential Lab Routine One Time for 1 Occurrences starting 03/02/2022 until 03/02/2022 [facility] Work Phone: Comment on above: One Time for 1 Occur rences starting 03/02/2022 until 03/02/2022 End: 03-02-2022 Comprehensive metabolic 2000 panel - Serum or Plasma Comprehensive Metabolic Panel Lab STAT One Time for 1 Occurrences starting 03/02/2022 until 03/02/2022 [facility] Work Phone: Comment on above: One Time for 1 Occur rences starting 03/02/2022 until 03/02/2022 End: 09-06-2023 CT Abdomen WO contrast [facility] [employer] Work Phone: Comment on above: Once for 1 Occurrenc es starting 09/06/2023 until 09/06/2023 End: 12-22-2021 Culture, Blood 2 Culture, Blood 2 Microbiology STAT One Time for 1 Occurrences starting 12/22/2021 until 12/22/2021 [facility] Work Phone: Comment on above: One Time for 1 Occur rences starting 12/22/2021 until 12/22/2021 End: 12-22-2021 Microscopic examination of blood, culture Culture, Blood Microbiology STAT One Time for 1 Occurrences starting 12/22/2021 until 12/22/2021 [facility] Work Phone: Comment on above: One Time for 1 Occur rences starting 12/22/2021 until 12/22/2021 Microscopic examinat ion of blood, culture Culture, Blood Microbiology STAT 12/22/2021 12:22 AM EDT [facility] Work Phone: Oxygen therapy [[facility] Data Set] Initiate Oxygen Therapy Protocol Respiratory Care Routine As Needed until discontinued starting 10/21/2021 [facility] Comment on above: As Needed until disc ontinued starting 10/21/2021 Protime-INR Protime-INR Lab Routine Daily until discontinued starting 10/23/2021, 7 completed [facility] Work Phone: Comment on above: Daily until disconti nued starting 10/23/2021, 7 completed End: 03-02-2022 Protime-INR Protime-INR Lab Routine One Time for 1 Occurrences starting 03/02/2022 until 03/02/2022 [facility] Work Phone: Comment on above: One Time for 1 Occur rences starting 03/02/2022 until 03/02/2022 Spirometry panel Incentive stef metry Respiratory Care Routine Daily until discontinued starting 10/21/2021 [facility] Work Phone: Comment on above: Daily until disconti nued starting 10/21/2021 End: 10-21-2021 Wound ostomy eval Wound ostomy eval Wound Ostomy Routine One Time for 1 Occurrences starting 10/21/2021 until 10/21/2021 [facility] Work Phone: Comment on above: One Time for 1 Occur rences starting 10/21/2021 until 10/21/2021 [facility] NEGATED: Highlighted row has been ruled out! Planned Goals not documented [facility]-Polhowlig[facility]Hq[facility]domero Work Phone: Immunizations Immunization Date Immunization Notes Care Provider Fa cility 03-04-2019 influenza, high dose seasonal, preservative-free Sarika [...] Phone: Payers Date Payer Category Payer Unknown [id number] 12-27-2023 Self-pay 01-05-2022 Medicaid 01-05-2022 Medicare 01-05-2022 Medicare [id number] 10-05-2021 Medicaid [id number] 06-07-2021 Medicare UHC MEDICARE UHC DUAL COMPLETE HMO SNP [id number] 06/07/2021-Present [phone] [address] [place] [address] Medicare [id number]. 2.7.3.172307.315 06-07-2021 Medicare UHC MEDICARE [employer] DUAL COMPLETE [id number] 06/07/2021-Present [phone] [address] [place] [address] [id number]. 2.7.3.986662.315 11-05-2019 Medicare UHC AARP MEDICAR E [facility] AARP MEDICARE HMO [id number] 11/05/2019-Present HMO [id number]. 2.7.3.402817.315 07-06-2015 Medicare UHC MEDICARE UHC MEDICARE COMPLETE xxxxxxxxx 2015-Present xxxxxxxxx [id number]. 2.7.3.784199.315 1952 Unknown [id number] 2.16.840.1.967492.3.579. 2.8 1952 Unknown [id number] 2.16.840.1.072610.3.579. 2.668 1952 Unknown [id number] 2.16.840.1.836735.3.579. 2.668 1952 Unknown [id number] 2.16.840.1.043212.3.579. 2.668 1952 Unknown [id number] 2.16.840.1.486207.3.579. 2.668 1952 Unknown [id number] 2.16.840.1.012925.3.579. 2.668 1952 Unknown [id number] 2.16.840.1.518416.3.579. 2.668 Private Health Insurance Unknown Unknown [id number] 2.16.840.1.817994.3.579. 2.462 Unknown [id number] 2.16840.1.326143.3.579. 2.462 Unknown [id number] 2.840.1.806224.3.579. 2.462 Unknown [id number] 2.840.1.930260.3.579. 2.462 Unknown [id number] 2.840.1.193081.3.579. 2.462 Unknown [id number] 2.840.1.069956.3.579. 2.462 Unknown [id number] 2.840.1.527039.3.579. 2.462 Unknown [id number] 2.16840.1.237003.3.579. 2.462 Unknown [id number] 2.16840.1.480074.3.579. 2.462 Unknown [id number] 2.840.1.741026.3.579. 2.462 Unknown [id number] 2.840.1.705459.3.579. 2.462 Unknown [id number] 2.16840.1.923136.3.579. 2.462 Unknown [id number] 2.16840.1.191643.3.579. 2.462 Unknown [id number] 2.16840.1.049878.3.579. 2.462 Unknown [id number] 2.16840.1.868153.3.579. 2.462 Unknown [id number] 2.16840.1.487447.3.579. 2.462 Unknown [id number] 2.16.840.1.942393.3.579. 2.462 Unknown [id number] 2.840.1.294732.3.579. 2.462 Unknown [id number] 2..840.1.354629.3.579. 2.462 Unknown [id number] 2.840.1.657974.3.579. 2.462 Unknown [id number] 2.840.1.396432.3.579. 2.462 Unknown [id number] 2.840.1.347654.3.579. 2.462 Unknown [id number] .840.1.114309.3.579. 2.462 Unknown [id number] 2.840.1.582961.3.579. 2.462 Unknown [id number] .840.1.324429.3.579. 2.462 Unknown [id number] .840.1.167890.3.579. 2.462 Unknown [id number] 840.1.835492.3.579. 2.462 Unknown [id number] .840.1.280033.3.579. 2.462 Unknown [id number] 840.1.596870.3.579. 2.462 Unknown [id number] .840.1.421108.3.579. 2.462 Unknown [id number] .840.1.983361.3.579. 2.462 Unknown [id number] 2.840.1.151706.3.579. 2.462 Unknown [id number] 2.840.1.319591.3.579. 2.462 Unknown [id number] 2.840.1.051189.3.579. 2.462 Unknown [id number] .16.840.1.566886.3.579. 2.462 Unknown [id number] 2.16.840.1.542170.3.579. 2.462 Unknown [id number] 2.16.840.1.513981.3.579. 2.462 Unknown [id number] 2.16.840.1.310800.3.579. 2.462 Unknown [id number] 2.16.840.1.940850.3.579. 2.462 Unknown [id number] 2.16.840.1.345890.3.579. 2.462 Unknown [id number] 2.16.840.1.670180.3.579. 2.462 Unknown [id number] 2.16.840.1.559114.3.579. 2.462 Unknown [id number] 2.16.840.1.124842.3.579. 2.462 Unknown [id number] 2.16.840.1.601028.3.579. 2.462 Unknown [id number] 2.16.840.1.312354.3.579. 2.462 Unknown 10929034 2.16.840.1.133669.3.579. 2.462 Unknown [id number] 2.16.840.1.107224.3.579. 2.462 Unknown [id number] 2.16.840.1.027949.3.579. 2.462 Unknown [id number] 2.16.840.1.962699.3.579. 2.462 Unknown [id number] 2.16.840.1.636582.3.579. 2.462 Unknown 02427728 2.16.840.1.517235.3.579. 2.462 Unknown [id number] 2.16.840.1.225330.3.579. 2.462 Unknown [id number] 2.16.840.1.388497.3.579. 2.462 Unknown [id number] 2.16.840.1.546210.3.579. 2.462 Unknown 87905224 2.16.840.1.045699.3.579. 2.462 Unknown [id number] 2.16.840.1.448114.3.579. 2.462 Unknown [id number] 2.16.840.1.324726.3.579. 2.462 Unknown [id number] 2.16.840.1.716306.3.579. 2.462 Unknown [id number] 2.16.840.1.752072.3.579. 2.462 Unknown [id number] 2.16.840.1.794960.3.579. 2.462 Unknown 37128506 2.16.840.1.466098.3.579. 2.462 Unknown 02475623 2.16840.1.056179.3.579. 2.462 Unknown [id number] 2.16.840.1.990043.3.579. 2.462 Unknown [id number] 2.16.840.1.577394.3.579. 2.462 Unknown [id number] 2.16.840.1.692630.3.579. 2.462 Unknown [id number] 2.16.840.1.540167.3.579. 2.462 Unknown 07517280 2.16.840.1.976839.3.579. 2.462 Unknown [id number] 2.16.840.1.864605.3.579. 2.462 Unknown [id number] 2.16.840.1.835009.3.579. 2.462 Unknown 17023598 2.16.840.1.384382.3.579. 2.462 Unknown 18475068 2.16.840.1.819299.3.579. 2.462 Unknown [id number] 2.16.840.1.206587.3.579. 2.462 Unknown 26361016 2.16.840.1.941148.3.579. 2.462 Unknown [id number] 2.16.840.1.666166.3.579. 2.462 Unknown 15860771 2.16.840.1.595181.3.579. 2.462 Unknown [id number] 2.16840.1.598824.3.579. 2.462 Unknown [id number] 2.16.840.1.723031.3.579. 2.462 Unknown [id number] 2.16.840.1.282356.3.579. 2.462 Unknown [id number] 2..840.1.102477.3.579. 2.462 Unknown 04013164 2.840.1.503416.3.579. 2.462 Unknown [id number] 2.840.1.072529.3.579. 2.462 Unknown 73934236 2.840.1.203285.3.579. 2.462 Unknown 40401848 2.840.1.908038.3.579. 2.462 Unknown [id number] 2.840.1.253492.3.579. 2.462 Unknown [id number] 2.840.1.208123.3.579. 2.462 Unknown [id number] 2.840.1.711351.3.579. 2.462 Unknown [id number] 2.16840.1.999601.3.579. 2.462 Unknown [id number] 2.16.840.1.973867.3.579. 2.462 Unknown [id number] 2.16840.1.810514.3.579. 2.462 Unknown [id number] 2.840.1.471422.3.579. 2.462 Unknown [id number] 2.16.840.1.804817.3.579. 2.462 Unknown [id number] 2.16.840.1.077385.3.579. 2.462 Unknown 69694471 2.16.840.1.346327.3.579. 2.462 Unknown [id number] 2.16.840.1.403260.3.579. 2.462 Unknown [id number] 2.16840.1.489639.3.579. 2.462 Unknown [id number] 2.840.1.891958.3.579. 2.462 Unknown 47957440 2.840.1.143028.3.579. 2.462 Unknown [id number] 2.840.1.523806.3.579. 2.462 Unknown [id number] 2.840.1.401949.3.579. 2.462 Unknown [id number] 2.840.1.692082.3.579. 2.462 Unknown 44890977 2.840.1.569196.3.579. 2.462 Unknown [id number] 2.840.1.890220.3.579. 2.462 Unknown [id number] 2.840.1.947308.3.579. 2.462 Unknown [id number] 2.840.1.491682.3.579. 2.462 Unknown [id number] 2.840.1.410420.3.579. 2.462 Unknown [id number] 2.16840.1.373836.3.579. 2.462 Unknown [id number] 2.16.840.1.581769.3.579. 2.462 Unknown [id number] 2.16840.1.579566.3.579. 2.462 Unknown [id number] 2.840.1.834027.3.579. 2.462 Unknown [id number] 2.16.840.1.179476.3.579. 2.462 Unknown [id number] 2.16.840.1.141502.3.579. 2.462 Unknown [id number] 2.16.840.1.450555.3.579. 2.462 Unknown [id number] 2.16.840.1.066060.3.579. 2.462 Unknown [id number] 2.16.840.1.008967.3.579. 2.462 Unknown [id number] 2.16.840.1.955147.3.579. 2.462 Social History Date Type Detail Facility Start: 05-23-2018 End: 05-19-2019 Tobacco smoking status KSIS Former smoker [employer] Work Phone: History of tobacco use Cigar Smoker [employer] Work Phone: Start: 05-19-2019 End: 08-13-2023 Cigarettes smoked current (pack per day) - Reported [employer] Work Phone: Start: 05-19-2019 End: 08-13-2023 Alcohol intake Current non-drinker of alcohol (finding) [facility] Work Phone: Start: 12-03-2018 History SDOH Physica l Activity DPW 7 [employer] Work Phone: Start: 12-03-2018 History SDOH Physica l Activity MPS 9 [facility] Work Phone: Start: 12-03-2018 End: 10-31-2021 History SDOH Stress 1 [employer] Work Phone: Start: 12-03-2018 History SDOH Financial 5 [facility] Work Phone: Start: 12-03-2018 History SDOH Transpo rt Med 2 [employer] Work Phone: Start: 1950 Sex Assigned At Not on file S [facility] Work Phone: Start: 08-13-2012 End: 11-13-2019 Tobacco smoking status NHIS Never smoker [facility] Start: 05-23-2018 End: 11-13-2019 Tobacco use and exposure Never used [facility] Start: 11-13-2019 History SDOH Alcohol Std Drinks 98 [facility] Start: 10-11-2021 End: 02-15-2022 Exposure to SARS-CoV-2 (event) Not sure [facility] Start: 1950 Sex Assigned At Male W [facility] History of tobacco use Current smoker [facility] Work Phone: History of tobacco use Cigarette Smoker S [facility] Work Phone: Start: 10-31-2021 End: 08-13-2023 Tobacco use panel [facility] [employer] Tobacco smoking stat us KSIS Unknown if ever smoked [facility] Work Phone: Start: 07-11-2024 End: 08-21-2024 Sex Male (finding) [facility] NEGATED: Highlighted row - - MARÍA [facility] Work Phone: Medical Equipment Procedure Code Equipment Code Equipment Origin al Text Equipment Identifier Dates Kit Bactiseal Woodard maria guadalupe Silicone Barium Catheter Shunt Sterile - [id number] Start: 06-08-2021 Catheter Bactise al 14cm External Drainage Csf Sterile Latex Free - [id number] Start: 08-05-2021 Valve Certas Shannon nt Inline - [id number] Start: 06-08-2021 Valve Certas Shannon nt Inline - [id number] Start: 08-05-2021 Valve Certas Shannon nt Inline - [id number] Start: 08-09-2021 Goals Date Patient Goal [...] issues are not documented Disease [facility] Work Phone: Mental Status Date Assessment Result Facility NEGATED: Highlighted row Cognitive function [Interpretation] Cognitive status health issues are not documented Disease [facility] Work Phone: Clinical [...] Hydrocephalus, adult (CMS/HCC) (HCC) Kidney stone Neuropathy ANALYTICS SENIOR MANAGER (ventriculoperitoneal) shunt status Past Surgical History: Procedure [...] 09/13/23 12:05 PM documented in this encounter [facility] [employer] 08-31-2023 Note S: Shanthi from [facility] spoke with CAC nurse regarding voiding trial [...] Protocols used: Information Only Call - [facility] Telephone encounter Note S: Shanthi from [facility] spoke with [facility] nurse regarding voiding trial procedure. B: Onset [...] Protocols used: Information Only Call - No [id number] [facility] 08-31-2023 Miscellaneous Notes S: Shanthi from [facility] spoke with [facility] nurse regarding voiding trial [...] Protocols used: Information Only Call - No [id number]-VP documented in this encounter [facility] 08-29-2023 Telephone encounter Note Lm on daughters vm to advise them to call the number for the support group manager to get clarification, and to call back with further questions [facility] 08-29-2023 Miscellaneous Notes Lm on daughters vm to advise them to call the number for the support group manager to get clarification, and to call back with further questions Yes, they will need to call the number given to them. Please advise Name of caller: Shanthi Contact phone number: [phone] Relationship to Patient: patient Provider: MD Quinn Practice: [facility] Urology Chief Complaint/Reason for Call: Shanthi called [...] to reach out to call Maury Cedeño Mill Laborer at [facility] [phone] to get clarifications. TEA did reach back out to [facility] and advised and provider Maury's #. Please advise Best time of day caller can be reached: Any Patient advised that office/PCP has 24-48 business hours to return their call: N/A documented in this encounter [facility] 08-27-2023 Telephone encounter Note Yes, they will need to call the number given to them. [facility] 08-27-2023 Telephone encounter Note Please advise [facility] 08-21-2023 Telephone encounter Note Name of caller: Shanthi Contact phone number: [phone] Relationship to Patient: patient Provider: MD Quinn Practice: [facility] Urology Chief Complaint/Reason for Call: [facility] called in to see if Pt would need to come by cot for his CT appt due to Pt being Boaz. CAC did reach out to office and was advised to reach out to Central Scheduling. CAC did reach out to and was advised to let [facility] know that she would need to reach out to call Maury Cedeño Mill Laborer at [facility] [phone] to get clarifications. CAC did reach back out to [facility] and advised and provider Maury's #. Please advise Best time of day caller can be reached: Any Patient advised that office/PCP has 24-48 business hours to return their call: N/A [facility] 08-13-2023 History of Present illness Narrative [...] Hydrocephalus, adult (CMS/HCC) (HCC) Kidney stone Neuropathy ANALYTICS SENIOR MANAGER (ventriculoperitoneal) shunt status Past Surgical History: Past [...] AM documented in this encounter [facility] 06-25-2023 [facility]23 Ronks has to be made further out, pt being transported by cot. Changed appt to 08/13/23 per [facility] only avail time for transport, first avail with DR Buck at 10:00 AM. [facility] 06-25-2023 Miscellaneous [facility] 07/10/23 Ronks has to be made further out, pt being transported by cot. Changed appt to 08/13/23 per [facility] only avail time for transport, first avail with DR Buck at 10:00 AM. documented in this encounter [facility] 12-22-2021 Hospital Discharge instructions SANIA Lou - 12/22/2021 2:32 AM EDT Please take medication as prescribed Please follow up with your Physicians as instructed in this discharge paperwork Thank you for choosing [facility] I appreciate your patience Please return to the emergency department if your symptoms worsen, or new symptoms develop as discussed documented in this encounter [facility] Work Phone: 10-29-2021 Note Hospitalist Discharg e [...] abnormality and previous indwelling tubing history of ANALYTICS SENIOR MANAGER shunt ? #?Bilateral lower extremity wounds-wound care [...] Your Medications These medications were sent to [facility] [address] [place] [address] - [phone] - F [phone] [place] [id number] ? levETIRAcetam 750 MG tablet ? warfarin 6 MG tablet Recommended Follow-up: No follow-up provider specified. Complexity of Follow up: [] Moderate Complexity: follow up within 7-14 calendar days (12205) [x] Severe Complexity: follow up within 7 calendar days (66336) Follow up Testing, Pending results or Referrals [...] Increased fatigue or (more content not included)... [facility] 10-29-2021 Hospital Discharge instructions Fabi Subramanian [...] Information Primary Emergency Contact: Triny Damon [address]: [address] [place] [address] Relation: Brother/Sister Secondary Emergency Contact: Lali Sifuentesey Mobile Relation: Child Preferred language: Tuvaluan Past Surgical History: Past Surgical History: Procedure Laterality Date BRAIN SURGERY CHOLECYSTECTOMY COLONOSCOPY HERNIA REPAIR Immunization History: Immunization History Administered Date(s) Administered Influenza Virus Vaccine 02/08/2015 Influenza, High Dose (Fluzone 65 yrs and older) 01/25/2018, 03/04/2019 Influenza, Quadv, IM, (6 mo and older Fluzone, Flulaval, Fluarix and 3 yrs and older Afluria) 02/24/2016, 02/14/2017 Pneumococcal Conjugate 13-valent (Rgathbr86) 09/22/2016 Pneumococcal Conjugate Vaccine 02/04/2013 Pneumococcal Polysaccharide (Dphcpeksd80) 12/03/2018 Tdap (Boostrix, Adacel) 09/22/2016 Active Problems: Patient Active Problem List Diagnosis Code Flank pain, acute R10.9 Night muscle spasms M62.838 Chronic fatigue R53.82 Hydrocephalus ([facility]) G91.9 Neuropathy G62.9 Erectile dysfunction N52.9 Fluid retention in tissues R60.9 Hyperlipidemia E78.5 Morbidly obese ([facility]) E66.01 Leg wound, left S81.802A DVT, lower extremity, recurrent, unspecified laterality ([facility]) I82.409 Moderate malnutrition ([facility]) E44.0 History of seizures Z87.898 Isolation/Infection: Isolation [...] Dependent Dressing Dependent Toileting Dependent Feeding Dependent Railroad Carman Dependent Med Delivery whole in [facility] Wound Care Documentation and Therapy: Wound 10/21/21 Heel Left (Active) Wound Etiology Pressure Unstageable 10/28/21 08 Dressing Status Clean;Dry;Intact 10/28/211947 Dressing/Treatment ABD;Roll gauze [...] Q4H prn SOB Oxygen Therapy: {Therapy; copd oxygen:73749} Ventilator: { CC Vent List:[id number]} Rehab Therapies: {THERAPEUTIC INTERVENTION:[id number]} Weight Bearing Status/Restrictions: Weight Bearing - Patient was bedbound in hospital Other Medical Equipment (for information only, NOT a DME order): wheelchair, hospital bed, and Boaz Other Treatments: Patient's personal belongings (please select all that are sent with patient): {[facility] DME Belongings:[id number]} RN SIGNATURE: CASE MANAGEMENT/SOCIAL WORK SECTION Inpatient Status Date: Readmission Risk Assessment Score: Readmission Risk Risk of Unplanned Readmission: 11 Discharging to Facility/ Agency Name: Address: Phone: Fax: Dialysis Facility (if applicable) Name: Address: Dialysis Schedule: Phone: Fax: Body Maker Machine Setter/Fixed Income Analyst signature: {Esignature:[id number]} PHYSICIAN SECTION Prognosis: Fair Condition at Discharge: [...] the diagnosis listed and that he requires [facility] Facility for greater than 30 days. Update Admission H&P: No change in H&P PHYSICIAN SIGNATURE: documented in this encounter [facility] Work Phone: 10-29-2021 History of Present illness Narrative [facility] Anticoagulation Management Service ([facility]) Inpatient Warfarin Consult HPI: Andrew Sifuentes is a 71 y.o. 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 Past Medical History: Diagnosis Date ED (erectile dysfunction) Hemorrhoids Hydrocephalus, adult (HCC) Kidney stone Neuropathy ANALYTICS SENIOR MANAGER (ventriculoperitoneal) shunt status Patient is newly referred to the [facility] clinic for warfarin management. Pt [...] [facility] warfarin booklet, if appropriate. Vimal Oropeza [facility], PharmD [facility] Consult Service is available daily [phone]. Please search for covering pharmacist name via [employer] or Groups --> Pharmacy --> Anti-Coagulation Consult Pharmacist (on 3rd page). If no response via [employer], please page [phone]. Patient seen and chart reviewed. Afebrile. Adequate oxygenation on room air. Baseline mentation. Exam stable X 5 systems. Hgb 11.0 WBC 10.0 K Platelets 344 K Creatinine 0.71 GFR > 90 cc/min. NSE 20.8 with hemolysis. PT 30.8 INR 3.1 Conversion to Warfarin has been completed. APS w/u pending. Discussed with patient's staff nurse midwife. Will continue to monitor. Total visit time > 35 minutes. Neurology Attending Progress Note SUBJECTIVE: No issues overnight. Care discussed with nursing staff/patient's medical team MRI brain reported nothing acute. Assessment and Plan: 71 yr M with PMH obstructive hydrocephalus s/p ANALYTICS SENIOR MANAGER shunt in 1987, needing multiple revisions and [...] normal limits and both old and new ANALYTICS SENIOR MANAGER shunt tubing noted. At present patient is awake, follows commands, was able to tell his name, and that he was in hospital but not oriented to time. Per documentation patient had NCSE in May 2021, was on Vimpat, but it was discontinued as there was no evidence of recurrent seizures in july 2021 by Neurology at [facility], per daughter patient was on Dilantin for 31 yrs. Per daughter patient had seizures in the past and also felt he had staring episodes 10/26/2021 morning. Per daughter patient has been essentially bed bound in [place] since May 2021 but prior to that was independent Impressions: H/O hydrocephalus H/O seizure, H/O stroke Acute DVT H/O PE Plan: -MRI brain w/o contrast nothing acute -CT head done during this admission reported no hydrocephalus, ventricles within normal limits and both old and new ANALYTICS SENIOR MANAGER shunt tubing noted -EEG mild to moderate slow, no seizures reported -Labs reviewed -Hydrocephalus management per Neurosurgery. At present patient does not have hydrocephalus on CT head done this admission. No Neurosurgery services available as inpatient in [facility]. Patient can follow up with Neurosurgery as outpatient and if ends up needing inpatient neurosurgery requirement then may need to be transferred to [facility]. -No clear clinical signs of ventriculitis. Defer evaluation to primary medical team/ID as deemed necessary. -Discussed with daughter in detail on . She was concerned that patient has had h/o seizures, and he has been taken off seizure medication, per note documentation patient had NCSE in May 2021 when he was admitted to [facility]. Per daughter she would want [...] is no in house Neurology coverage at [facility] over the weekend, primary hospitalist team to contact electronics installer Neurology at [facility] for any weekend neurological issues related to the patient and if need to discuss any neurological test results/findings. Other deal in house Neurology coverage will be available from Sunday at [facility] and please call electronics installer Neurology back on Sunday if need further assistance. This note has been generated using [employer] dictation software. It may contain incorrect words, punctuation's and spellings that were not noted in the review of the note prior to signing. This note has been generated using [employer] dictation software. It may contain incorrect words, [...] eGFR >90.0 >60 mL/min EGFR IF NonAfrican Algerian >90.0 >60 mL/min Calcium 9.1 8.4 - [...] AST 24 BILITOT 0.4 LABALBU 3.7 @BRIEFLAB([facility]) ABGs: )No results for input(s): PH, [...] Radiology ACCESSION EXAM DATE/TIME PROCEDURE ORDERING PROVIDER [id number] 10/21/2021 15:30 EDT CR Calcaneus 2+ Views [id number] -MARIBEL MALIKIE Left CPT code 95093 Reason For Exam (CR Calcaneus 2+ Views [...] Tomography ACCESSION EXAM DATE/TIME PROCEDURE ORDERING PROVIDER [id number] 10/26/2021 11:[address] Head or Brain w/o EDWIN, VACUUM CLEANER REPAIR PERSON, SARINA Contrast CPT code 07353 Reason For Exam (CT Head or Brain w/o Contrast) hydrocephalus. thank you Report CLINICAL INFORMATION: Hydrocephalus. Shunt. 3 mm axial cuts through the head are obtained without IV contrast. The examination is compared to a previous study dated 06/29/2014. FINDINGS: Old ANALYTICS SENIOR MANAGER shunt tubing is noted bilaterally. The new [...] are clear. IMPRESSION: 1. Old and new ANALYTICS SENIOR MANAGER shunt tubing. 2. No hydrocephalus. 3. Atrophy [...] Imaging ACCESSION EXAM DATE/TIME PROCEDURE ORDERING PROVIDER [id number] 10/23/2021 11:08 EDT MRI Abdomen w/o Contrast WING SRIVASTAVA CPT code 15550 Reason For Exam (MRI Abdomen w/o Contrast) [...] Medicine ACCESSION EXAM DATE/TIME PROCEDURE ORDERING PROVIDER [id number] 10/21/2021 07:55 EDT NM Pulmonary Perfusion [id number] -MAY CASH w/ Vent Aerosol CPT code 80559 A9567 Reason For Exam (NM Pulmonary Perfusion [...] Brachial Indices Extremity Bilateral Result Date: 10/22/2021 [facility] --- Ankle Brachial Index Report Patient DO GurpreetB: 1950 Study 10/21/2021 Name: Andrew Gonzalez (71yrs) Date: Age: 71 Account: [id number] Gender: M Loc: 444W BP: Ordering Physician: Shruthi Malik Umbrella Mender: Rody Cross RDMS, RVT Interpreting Physician: Carina Call --- Location: [facility] --- Indications: Foot wounds. Originally ordered as a full PVR. Ordering VACUUM CLEANER REPAIR PERSON had to modify the order to ABIs [...] supine position. Images were obtained using a Zerplys vascular ultrasound machine. --- Arterial pressure indices: [...] EXTREMITY BILATERAL VENOUS DUPLEX Result Date: 10/21/2021 [facility] --- Lower Extremity Venous Duplex Report Patient Gurpreet : 1950 Study 10/21/2021 Name: Andrew Gonzalez (71yrs) Date: Age: 71 Account: [id number] Gender: M Loc: 444 BP: Ordering Physician: May Cash Umbrella Mender: Rody Cross RDMS, RVT Interpreting Physician: Carina Call --- Location: [facility] --- Indications: Bilateral lower leg edema. [...] supine position. Images were obtained using a Zerplys vascular ultrasound machine. --- Venous flow and [...] Radiology ACCESSION EXAM DATE/TIME PROCEDURE ORDERING PROVIDER [id number] 10/21/2021 08:16 EDT CR Chest 1 View Frontal [id number] MAY BOGGS CPT code 48901 Reason For Exam (CR Chest 1 View [...] Tomography ACCESSION EXAM DATE/TIME PROCEDURE ORDERING PROVIDER [id number] 10/22/2021 13:[address] Abdomen/Pelvis (No SRIVASTAVA, WING PO, No IV) CPT code 54272 Reason For Exam (CT Abdomen/Pelvis (No PO, [...] Imaging ACCESSION EXAM DATE/TIME PROCEDURE ORDERING PROVIDER [id number] 10/27/2021 13:14 EDT MRI Brain w/o Contrast UNASSIGNED, UNASSIGNED CPT code 26196 Reason For Exam (MRI Brain w/o Contrast) stroke Patient has ANALYTICS SENIOR MANAGER shunt in place, please follow Radiology protocol [...] included. Hospitalist Progress Note 10/28/2021 11:37 AM [phone]: Please page me @ [phone] for patient care issues. [phone]: Please page digital advisor for any issues@ night Subjective: Admit Date: [...] times per day LABS: CBC: Recent Labs 10/28/21 0418 WBC 10.0 RBC 3.94* HGB 11.0* HCT 33.4* MCV 84.8 RDW 17.1* PLT 344 BMP: Recent Labs 10/28/21 0418 NA 138 K 3.5 CL 104 CO2 [...] abnormality and previous indwelling tubing history of ANALYTICS SENIOR MANAGER shunt # Bilateral lower extremity wounds-wound care [...] Services This report was created using the Mobile[employer] Speaking voice-activated system. Despite prompt dictation and careful editorial review, there may be subtle contextual errors in this report, due to misrecognition of the spoken word. Speech Language Pathology Facility/Department: [facility] MED SURG Dysphagia Treatment Note [...] and gloves were worn throughout this session. [facility] Anticoagulation Management Service ([facility]) Inpatient Warfarin Consult HPI: Andrew Sifuentes is a 71 y.o. 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 Past Medical History: Diagnosis Date ED (erectile dysfunction) Hemorrhoids Hydrocephalus, adult (HCC) Kidney stone Neuropathy ANALYTICS SENIOR MANAGER (ventriculoperitoneal) shunt status Patient is newly referred to the [facility] clinic for warfarin management. Pt [...] PharmD IRVIN Consult Service is available daily [phone]. Please search for covering pharmacist name via [employer] or Groups --> Pharmacy --> Anti-Coagulation Consult Pharmacist (on 3rd page). If no response via [employer], please page [phone]. Follow up b/l foot wounds. No new [...] yr M with PMH obstructive hydrocephalus s/p ANALYTICS SENIOR MANAGER shunt in 1987, needing multiple revisions and [...] normal limits and both old and new ANALYTICS SENIOR MANAGER shunt tubing noted. At present patient is awake, follows commands, was able to tell his name, and that he was in hospital but not oriented to time. Per documentation patient had NCSE in May 2021, was on Vimpat, but it was discontinued as there was no evidence of recurrent seizures in july 2021 by Neurology at [facility], per daughter patient was on Dilantin for 31 yrs. Per daughter patient had seizures in the past and also felt he had staring episodes 10/26/2021 morning. Per daughter patient has been essentially bed bound in [place] since May 2021 but prior to that was independent Impressions: H/O hydrocephalus H/O seizure, H/O stroke Acute DVT H/O PE Plan: -MRI brain w/o contrast. Per daughter she would like MRI brain done to evaluate for strokes -CT head done during this admission today reported no hydrocephalus, ventricles within normal limits and both old and new ANALYTICS SENIOR MANAGER shunt tubing noted -EEG mild to moderate slow, no seizures reported -Labs reviewed -Hydrocephalus management per Neurosurgery. At present patient does not have hydrocephalus on CT head done this admission. No Neurosurgery services available as inpatient in [facility]. Patient can follow up with Neurosurgery as outpatient and if ends up needing inpatient neurosurgery requirement then may need to be transferred to [facility]. -No clear clinical signs of ventriculitis. Defer evaluation to primary medical team/ID as deemed necessary. -Discussed with daughter in detail on . She was concerned that patient has had h/o seizures, and he has been taken off seizure medication, per note documentation patient had NCSE in May 2021 when he was admitted to [facility]. Per daughter she would want [...] interim. This note has been generated using [employer] dictation software. It may contain incorrect words, punctuation's and spellings that were not noted in the review of the note prior to signing. This note has been generated using [employer] dictation software. It may contain incorrect words, [...] AMYLASE, LIPASE in the last 72 hours.@BRIEFLAB([facility]) ABGs: )No results for input(s): PH, [...] Radiology ACCESSION EXAM DATE/TIME PROCEDURE ORDERING PROVIDER [id number] 10/21/2021 15:30 EDT CR Calcaneus 2+ Views [id number] -HELENA SHRUTHI Left CPT code 93781 Reason For Exam (CR Calcaneus 2+ Views [...] Result Date: 10/26/2021 Patient Name: ANDREW SIFUENTES [facility]#: [id number] Computed Tomography ACCESSION EXAM DATE/TIME PROCEDURE ORDERING PROVIDER [id number] 10/26/2021 11:[address] Head or Brain w/o JUNIE PINEDA, SARINA Contrast CPT code 17218 Reason For Exam (CT Head or Brain w/o Contrast) hydrocephalus. thank you Report CLINICAL INFORMATION: Hydrocephalus. Shunt. 3 mm axial cuts through the head are obtained without IV contrast. The examination is compared to a previous study dated 06/29/2014. FINDINGS: Old ANALYTICS SENIOR MANAGER shunt tubing is noted bilaterally. The new [...] are clear. IMPRESSION: 1. Old and new ANALYTICS SENIOR MANAGER shunt tubing. 2. No hydrocephalus. 3. Atrophy and evidence of small-vessel ischemic disease. 4. No CT evidence of an acute intracranial process. Report Dictated on --- Final --- Dictating Physician: MD SOLANO JEFFREY Signed Date and Time: 10/26/2021 11:42 am Signed by: MD SOLANO JEFFREY Transcribed Date and Time: 10/26/2021 11:43 MRI ABDOMEN WO CONTRAST Result Date: 10/23/2021 Patient Name: ANDREW SIFUENTES [facility]#: [id number] Magnetic Resonance Imaging ACCESSION EXAM DATE/TIME PROCEDURE ORDERING PROVIDER [id number] 10/23/2021 11:08 EDT MRI Abdomen w/o Contrast WING SRIVASTAVA CPT code 65663 Reason For Exam (MRI Abdomen w/o Contrast) [...] Medicine ACCESSION EXAM DATE/TIME PROCEDURE ORDERING PROVIDER [id number] 10/21/2021 07:55 EDT NM Pulmonary Perfusion [id number] MAY BOGGS w/ Vent Aerosol CPT code 38246 A9567 Reason For Exam (NM Pulmonary Perfusion [...] Brachial Indices Extremity Bilateral Result Date: 10/22/2021 [facility] --- Ankle Brachial Index Report Patient RADHA Sifuentes: 1950 Study 10/21/2021 Name: Andrew Gonzalez (71yrs) Date: Age: 71 Account: [id number] Gender: M Loc: 444W BP: Ordering Physician: Shruthi Malik Umbrella Mender: Rody Cross RDMS, RVT Interpreting Physician: Carina Call --- Location: [facility] --- Indications: Foot wounds. Originally ordered as a full PVR. Ordering VACUUM CLEANER REPAIR PERSON had to modify the order to ABIs [...] supine position. Images were obtained using a Zerplys vascular ultrasound machine. --- Arterial pressure indices: [...] EXTREMITY BILATERAL VENOUS DUPLEX Result Date: 10/21/2021 [facility] --- Lower Extremity Venous Duplex Report Patient Gurpreet : 1950 Study 10/21/2021 Name: Andrew Gonzalez (71yrs) Date: Age: 71 Account: [id number] Gender: M Loc: 444 BP: Ordering Physician: May Cash Umbrella Mender: Rody Cross RDMS, RVT Interpreting Physician: Carina Call --- Location: [facility] --- Indications: Bilateral lower leg edema. [...] supine position. Images were obtained using a Zerplys vascular ultrasound machine. --- Venous flow and [...] Radiology ACCESSION EXAM DATE/TIME PROCEDURE ORDERING PROVIDER [id number] 10/21/2021 08:16 EDT CR Chest 1 View Frontal [id number] MAY BOGGS CPT code 12205 Reason For Exam (CR Chest 1 View [...] Tomography ACCESSION EXAM DATE/TIME PROCEDURE ORDERING PROVIDER [id number] 10/22/2021 13:[address] Abdomen/Pelvis (No SRIVASTAVA, WING PO, No IV) CPT code 56164 Reason For Exam (CT Abdomen/Pelvis (No PO, [...] 12:48 PM Consults Speech Language Pathology Facility/Department: [facility] MED SURG Dysphagia Treatment Note [...] reactivity and state change, indicative of a zwyw-kv-fohjvcyb diffuse encephalopathy of nonspecific etiology. There are [...] Easy to chew diet/cut up. NEVILLE Jones M.A.CCC/CAMP ADVISOR Time session ended: 1156 Total session minutes: 23 Images from the original note were not included. Hospitalist Progress Note 10/27/2021 10:40 AM [phone]: Please page me @ [phone] for patient care issues. [phone]: Please page digital advisor for any issues@ night Subjective: Admit Date: [...] Services This report was created using the [employer] Speaking voice-activated system. Despite prompt dictation and careful editorial review, there may be subtle contextual errors in this report, due to misrecognition of the spoken word. [facility] [facility] ([facility] Inpatient Warfarin Consult HPI: Andrew Sifuentes is a 71 y.o. 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 Past Medical History: Diagnosis Date ED (erectile dysfunction) Hemorrhoids Hydrocephalus, adult (HCC) Kidney stone Neuropathy ANALYTICS SENIOR MANAGER (ventriculoperitoneal) shunt status Patient is newly referred to the [facility] clinic for warfarin management. Pt [...] drug interactions and adjust dose accordingly. 3. [facility] will manage while inpatient and sign off at discharge. Patient resides in a SNF. 4. Will provide warfarin education including [facility] warfarin booklet, if appropriate. Thank you for this consult Brionna Le, PharmD candidate Josie Gupta RPh, PharmD [facility] Consult Service is available daily [phone]. Please search for covering pharmacist name via [employer] or Groups --> Pharmacy --> Anti-Coagulation Consult Pharmacist (on 3rd page). If no response via [employer], please page [phone]. I cleaned under patient's finger nails with [...] status with Warfarin. Discussed with patient's staff nurse midwife. Will continue to monitor. Total visit time [...] if concern Hydrocephalus Chronic WOODARD's - Revised ANALYTICS SENIOR MANAGER shunt - daughter requested that pt have CT / MRI of brain and neurology be consulted, this was done. - Hydrocephalus management per Neurosurgery. At present patient does not have hydrocephalus on CT head done this morning. No Neurosurgery services available as inpatient in [facility]. Patient can follow up with Neurosurgery as outpatient and if ends up needing inpatient neurosurgery requirement then may need to be transferred to [facility]. Seizure history, unspecified - daughter requested [...] get report from nursing. Continue wound care. [facility] Anticoagulation Management Service ([facility]) Inpatient Warfarin Consult HPI: Andrew Sifuentes is a 71 y.o. 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 Past Medical History: Diagnosis Date ED (erectile dysfunction) Hemorrhoids Hydrocephalus, adult (HCC) Kidney stone Neuropathy ANALYTICS SENIOR MANAGER (ventriculoperitoneal) shunt status Patient is newly referred to the [facility] clinic for warfarin management. Pt [...] Brionna Le, PharmD candidate Josie Gupta [facility], PharmD [facility] Consult Service is available daily [phone]. Please search for covering pharmacist name via [employer] or Groups --> Pharmacy --> Anti-Coagulation Consult Pharmacist (on 3rd page). If no response via [employer], please page [phone]. Moon daughter stated that any of patient's family can call and obtain an update on patient's status. Speech Language Pathology Facility/Department: [facility] MED SURG CLINICAL BEDSIDE SWALLOW [...] a small bore straw. Additionally discussed with CAMP ADVISOR, agreeable to assess tomorrow. Recent Chest Xray/CT [...] and liquids between bites. Treatment Plan Requires CAMP ADVISOR Intervention: Yes Duration of Treatment: 2 weeks [...] Education Response: Verbalizes understanding;Needs reinforcement Therapy Time CAMP ADVISOR Individual Minutes Time In: 826 Time Out: 852 Minutes: NEVILLE Jones 10/26/2021 9:20 AM Comprehensive Nutrition Assessment Type and Reason for Visit: Initial (DT referral for wounds) Nutrition Recommendations/Plan: 1. Recommend to continue: Easy to Chew diet with Thin Liquids as currently ordered and safe for patient to participate in. Discussed with: RN, VACUUM CLEANER REPAIR PERSON, and CAMP ADVISOR. CAMP ADVISOR to assess tomorrow, best diet and liquid [...] & deltoids),Scapula (trapezius) Fluid Accumulation: Mild Extremities Integrity Specialist Strength: Not Performed Nutrition Assessment: 71 year [...] a small bore straw. Additionally discussed with CAMP ADVISOR, agreeable to assess tomorrow. Nutrition Related Findings: [...] Anthropometric Measures: Height: 5' 7.01 (170.2 cm) [place] Body Weight (IBW): 148 lbs (67 kg) Admission Body Weight: 240 lb (108.9 kg) (stated 10/21/21) Current Body Weight: 205 lb 4 oz (93.1 kg) (10/25/21), 138.7 % IBW. Weight Source: Bed Scale Current BMI (kg/m2): 32.1 Usual Body Weight: 272 lb 11.3 oz (123.7 kg) (05/30/21 and 232.5# noted 08/14/21 at [facility] per EMR Review) % Weight Change (Calculated): -24.7 BMI Categories: Obese Class 1 (BMI 30.0-34.9) Estimated Daily Nutrient Needs: Energy Requirements Based On: Kcal/kg Weight Used for Energy Requirements: [place] (67.15 kg) Energy (kcal/day): 6871-3866 (27-32 kcal/kg IBW) --> increased need d/t wounds Weight Used for Protein Requirements: [place] (67.15 kg) Protein (g/day): 67-101 (1.0-1.5 g protein/kg IBW) Method Used for Fluid Requirements: Other (Comment) Fluid (ml/day): 7293-4803 mL daily or per MD Nutrition Diagnosis: [...] Plan of Care discussed with: Patient, RN, VACUUM CLEANER REPAIR PERSON Edwin Goals: Goals: other (specify) Specify Other [...] to determine Puja Almanza RD, LD Contact: *[phone] Or Via [employer] Hematology/Oncology Attending Progress Note SUBJECTIVE: Patient seen [...] IRON, TIBC, FERRITIN No results found for: [id number] No results found for: FOLATE PT 15.6 INR 1.5 CA 19 - 9 is 17 Protein S 138% Protein C 186% ASSESSMENT AND PLAN GI input appreciated. Patient continues with subtherapeutic INR. GI input appreciated. Discussed with patient's staff nurse midwife. Will continue monitor. Total visit time > 35 minutes. [facility] Anticoagulation Management Service ([facility]) Inpatient Warfarin Consult HPI: Andrew Sifuentes is a 71 y.o. 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 Past Medical History: Diagnosis Date ED (erectile dysfunction) Hemorrhoids Hydrocephalus, adult (HCC) Kidney stone Neuropathy ANALYTICS SENIOR MANAGER (ventriculoperitoneal) shunt status Patient is newly referred to the [facility] clinic for warfarin management. Pt [...] PharmD [facility] Consult Service is available daily [phone]. Please search for covering pharmacist name via [employer] or Groups --> Pharmacy --> Anti-Coagulation Consult Pharmacist (on 3rd page). If no response via [employer], please page [phone]. Progress Note 10/25/2021 9:36 AM Name: Andrew [...] if concern Hydrocephalus Chronic WOODARD's - Revised ANALYTICS SENIOR MANAGER shunt DC planning - 10/25/21: INR subtherapeutic, [...] if concern Hydrocephalus Chronic WOODARD's - Revised ANALYTICS SENIOR MANAGER shunt DC planning - Can be DC'd back to ECF once MRI done if no acute findings, MRI is done, defer to hem / onc on plan for that, awaiting chest PA with fluoro Patient seen and chart reviewed. Consult dictated. Will ask GI to assess concerning the etiology of liver lesions. Will continue to monitor. [facility] Anticoagulation Management Service ([facility]) Inpatient Warfarin Consult HPI: Andrew Sifuentes is a 71 y.o. 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 Past Medical History: Diagnosis Date ED (erectile dysfunction) Hemorrhoids Hydrocephalus, adult (HCC) Kidney stone Neuropathy ANALYTICS SENIOR MANAGER (ventriculoperitoneal) shunt status Patient is newly referred to the [facility] clinic for warfarin management. Pt [...] PharmD [facility] Consult Service is available daily [phone]. Please search for covering pharmacist name via [employer] or Groups --> Pharmacy --> Anti-Coagulation Consult Pharmacist (on 3rd page). If no response via [employer], please page [phone]. Follow up foot wounds Patient is more alert this morning. Waffle boots are on Ulcer left heel ulcer right foot Foot drop PE, chart reviewed. Patient relates that he does not walk at home. c ontinue wound care. Images from the original note were not included. Hospitalist Progress Note 10/23/2021 1:47 PM [phone]: Please page me ([phone]) or perfect serve me for patient care issues. [phone]: Please page [facility] night Hospitalist for any issues. Subjective: Admit Date: 10/21/2021 PCP: MONIKA STALEY MD Room#: 090/9245 Admitting Synopsis: 71 y/o male presents from [...] if concern Hydrocephalus Chronic WOODARD's - Revised ANALYTICS SENIOR MANAGER shunt DC planning - Can be DC'd [...] Hemorrhoids Hydrocephalus, adult (HCC) Kidney stone Neuropathy ANALYTICS SENIOR MANAGER (ventriculoperitoneal) shunt status Medications: sodium chloride warfarin [...] of Hospitalist Medicine Inpatient Medical Services PAGER: [phone] Nutrition rescreen completed. Pt referred to RD for foot ulcers. Occupational Therapy Facility/Department: [facility] MED SURG Occupational Therapy Initial Assessment Name: Andrew Sifuentes : 1950 Date of Service: 10/23/2021 OT eval and treat orders received. Chart reviewed. Per notes pt from [facility], is Boaz lift at baseline, non-ambulatory, and requires assist for all ADLs. Will d/c OT orders. Elizabeth Gutierrez OT Physical Therapy Facility/Department: [facility] MED SURG Physical Therapy Initial Assessment Name: Andrew Sifuentes : 1950 Date of Service: 10/23/2021 PT eval and treat orders received. Chart reviewed. Per notes pt from [facility], is Boaz rios at baseline, non-ambulatory. Will d/c PT orders. Lloyd Silva PT [facility] Anticoagulation Management Service ([facility]) Inpatient Warfarin Consult HPI: Andrew Sifuentes is a 71 y.o. 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 Past Medical History: Diagnosis Date ED (erectile dysfunction) Hemorrhoids Hydrocephalus, adult (HCC) Kidney stone Neuropathy ANALYTICS SENIOR MANAGER (ventriculoperitoneal) shunt status Patient is newly referred to the [facility] clinic for warfarin management. Pt [...] SNF. 4. Will provide warfarin education including [facility] warfarin booklet, if appropriate. Thank you for this consult Lisa Forrest RPH, PharmD [facility] Consult Service is available daily [phone]. Please search for covering pharmacist name via [employer] or Groups --> Pharmacy --> Anti-Coagulation Consult Pharmacist (on 3rd page). If no response via [employer], please page [phone]. Department of Podiatry Attending Consult Note Reason for Consult: Wound care Requesting Physician: MD Shailesh CHIEF COMPLAINT: Foot wounds HISTORY OF PRESENT ILLNESS: The patient is a 71 y.o. male with b/l foot wounds. Patient is awake , but not answering questions. Past Medical History: Diagnosis Date ED (erectile dysfunction) Hemorrhoids Hydrocephalus, adult (HCC) Kidney stone Neuropathy ANALYTICS SENIOR MANAGER (ventriculoperitoneal) shunt status Past Surgical History: Procedure [...] OT consulted. Will follow . Thank you. [facility] Respiratory Care Department Progress Note As [...] included. Hospitalist Progress Note 10/22/2021 6:33 AM [phone]: Please page me ([phone]) or perfect serve me for patient care issues. [phone]: Please page [facility] night Hospitalist for any [...] consider MRI if concern Hydrocephalus - Revised ANALYTICS SENIOR MANAGER shunt Interval History: No overnight issues. 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 Hospitalist Progress Note 10/21/2021 5:31 PM [phone]: Please page me ([phone]) or perfect serve me for patient care issues. [phone]: Please page [facility] Hospitalist for any issues. Subjective: Admit Date: 10/21/2021 PCP: MONIKA STALEY MD Room#: 596/1465 Admitting Synopsis: 71 y/o male presents from [...] Will need chronic OAC Hydrocephalus - Revised ANALYTICS SENIOR MANAGER shunt Interval History: No overnight issues. Denies [...] Hemorrhoids Hydrocephalus, adult (HCC) Kidney stone Neuropathy ANALYTICS SENIOR MANAGER (ventriculoperitoneal) shunt status Medications: sodium chloride baclofen 10 mg Oral TID bumetanide 2 mg Oral Daily potassium chloride 20 mEq Oral Daily sodium chloride flush 5-40 mL IntraVENous 2 times per day enoxaparin 1 mg/kg SubCUTAneous BID ipratropium-albuterol 1 ampule Inhalation Q4H WA LABS: CBC: Recent Labs 10/21/21 0210 WBC [...] of Hospitalist Medicine Inpatient Medical Services PAGER: [phone] Family member Triny, sister to patient, called back to the hospital stating that she was returning a call from a provider. Her phone number is [phone] to speak with whomever was attempting to reach out to her. documented [facility] this [facility] Phone: 10-17-2021 Miscellaneous Notes Mr. Sifuentes missed his hospital stay follow-up appointment w. Dr. Lim today. Called to Reschedule. Could not get through. Subscriber you have dialed not in service - was the automated voice mail. Unable to leave . No other phone# available. Ramya Negro [employer] Neurosurgery/Ortho Spine documented in this encounter [facility] 08-19-2021 Note [facility] 08-19-2021 Note [facility] 08-18-2021 Note [facility] 08-18-2021 Note [facility] 08-17-2021 Note [facility] 08-17-2021 Note [facility] 08-16-2021 Note [facility] 08-16-2021 Note HNO ID: [id number] Author: Katt Kelsey DO Service: Hospital Medicine Author Type: Physician Type: Plan of Care Filed: 08/16/2021 12:26 PM Note Text: Spoke with RN that line is a PICC. Katt Kelsey DO 08/16/2021 12:26 PM [facility] 08-16-2021 Note [facility] 08-16-2021 Note [facility] 08-15-2021 Note [facility] 08-15-2021 Note [facility] 08[facility]15-2021 Note [facility] 08-14-2021 Note [facility] 08-14-2021 Note [facility] 08-13-2021 Note [facility] 08-13-2021 Note [facility] 08-13-2021 Note [facility] 08-13-2021 Note HNO ID: [id number] Author: Interface Note Service: ? Author Type: ? Type: Progress Notes Filed: 08/13/2021 3:10 AM Note Text: Epic Scheduled Downtime: 08/13/2021 1:08:47 AM to 08/13/2021 2:53:47 AM [facility] 08-12-2021 Note [facility] 08-12-2021 Note [facility] 08-12-2021 Note [facility] 08-11-2021 Note [facility] 08-11-2021 Note [facility] 08-11-2021 Note [facility] 08-11-2021 Note [facility] 08-11-2021 Note [facility] 08[facility]11-2021 Note [facility] 08-10-2021 Note [facility] 08[facility]10-2021 Note [facility] 08-10-2021 Note [facility] 08-10-2021 Note [facility] 08-09-2021 Note HNO ID: [id number] Author: Shannon Brooks RN Service: ? Author Type: Registered Nurse Type: Nursing Progress Note Filed: 08/09/2021 7:33 PM Note Text: Report called to unit [facility] 08-09-2021 Note [facility] 08-09-2021 Note [facility] 08-09-2021 Note [facility] 08-08-2021 Note [facility] 08[facility]08-2021 Note [facility] 08-08-2021 Note [facility] 08-07-2021 Note [facility] 08-07-2021 Note [facility] 08[facility]07-2021 Note [facility] 08[facility]07-2021 Note [facility] 08-07-2021 Note [facility] 08-06-2021 Note [facility] 08[facility]06-2021 Note [facility] 08-06-2021 Note [facility] 08-05-2021 Note [facility] 08[facility]05-2021 Note [facility] 08[facility]05-2021 Note [facility] 08-04-2021 Note [facility] 08-04-2021 Note [facility] 08-04-2021 Note [facility] 08-03-2021 Note [facility] 08[facility]03-2021 Note [facility] 08-03-2021 Note [facility] 08-02-2021 Note [facility] 08[facility]02-2021 Note [facility] 08-02-2021 Note [facility] 08-01-2021 Note [facility] 08-01-2021 Note [facility] 08[facility]01-2021 Note [facility] 08-01-2021 Note [facility] 07-31-2021 Note [facility] 07-31-2021 Note [facility] 07-30-2021 Note [facility] 07-30-2021 Note [facility] 07-30-2021 Note [facility] 07-29-2021 Note [facility] 07-29-2021 Note [facility] 07-29-2021 Note [facility] 07-28-2021 Note [facility] 07[facility]28-2021 Note [facility] 07-28-2021 Note [facility] 07-27-2021 Note [facility] 07-27-2021 Note [facility] 07[facility]27-2021 Note [facility] 07-26-2021 Note [facility] 07-26-2021 Note [facility] 07[facility]26-2021 Note [facility] 07-26-2021 Note [facility] 07-26-2021 Note [facility] 07-25-2021 Note [facility] 07[facility]25-2021 Note [facility] 07[facility]25-2021 Note [facility] 07-25-2021 Note [facility] 07-24-2021 Note [facility] 07-24-2021 Note [facility] 07[facility]24-2021 Note [facility] 07-23-2021 Note [facility] 07-23-2021 Note [facility] 07-23-2021 Note [facility] 07[facility]23-2021 Note [facility] 07-23-2021 Note [facility] 07-22-2021 Note [facility][1] dical [place] 07-22-2021 Note [facility] 07-22-2021 Note [facility] 07-21-2021 Note [facility] 07-21-2021 Note [facility][1] dical [place] [facility] [place] [facility] History of Past i llness Narrative [...] history of fever, elevated WBC, RP hematoma ANALYTICS SENIOR MANAGER shunt tip grew anaerobic gram positive cocci 06/08/2021 PLAN: ANALYTICS SENIOR MANAGER shunt tip sent to [facility] main, awaiting cx Continue Meropenem per [...] - following CSF studies; 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 for RESIDENTIAL DIRECTOR infection at this time - ID following- Continue antibiotics: Meropenem -CSF leak from EVD site, appreciate NSGY recs> stat repeat CTH on 06/07 d/t concern for CSF leak, cephalematoma, CTH unremarkable -Tolerating TF - SBT WTE - PICC line placed documented as of this encounter (statuses as of 10/17/2021) [facility]03-17-2022 [facility]03-16-2022 [facility]03-16-2022 [facility]03-16-2022 Note [facility]03-16-2022 [facility] 07-19-2021 [facility]03-15-2022 [facility]03-15-2022 [facility]03-14-2022 [facility]03-14-2022 [facility]03-13-2022 [facility]03-13-2022 [facility]03-12-2022 Note [facility]03-12-2022 [facility] 07-15-2021 [facility]03-11-2022 [facility]03-10-2022 [facility]03-10-2022 [facility]03-10-2022 [facility]03-09-2022 [facility]03-09-2022 [facility]03-09-2022 Note [facility]03-09-2022 [facility] 07-12-2021 [facility]03-08-2022 [facility]03-07-2022 [facility]03-07-2022 [facility]03-07-2022 [facility]03-07-2022 [facility]03-06-2022 [facility]03-06-2022 Note [facility]03-05-2022 [facility] 07-09-2021 [facility]03-05-2022 [facility]03-05-2022 [facility]03-05-2022 NoteHNO ID: [id number] Author: Lizette Valderrama RN Service: Nursing Author Type: Registered Nurse Type: Nursing Progress Note Filed: 07/09/2021 1:41 AM Note Text: Report called to [facility]03-04-2022 NoteHNO ID: [id number] Author: Lizette Valderrama RN Service: Nursing Author Type: Registered Nurse Type: Nursing Progress Note Filed: 07/08/2021 8:57 PM Note Text: [address] back to PACU [address] [place], [place] [address]08703-04-2022 NoteHNO ID: [id number] Author: Sukhi Chery APRN.CNP Service: ? Author Type: Nurse Practitioner Type: Progress Notes Filed: 07/09/2021 6:46 PM Note Text: Connected Care Unit Progress Note Patient Name: Andrew Sifuentes Patient Facility: [facility] Admit Date 06/28/2021 Level of Care: Skilled [...] Location Dept Phone 07/21/2021 11:00 AM [facility] [phone] HPI: (Per Dr. Beltran) Andrew Sifuentes is being seen today for alf facility (SNF) admission AND management of weakness, tube feed, infected retroperitoneal infection and seizure. ? This is a 71 year old male who presents from [facility] with primary admitting diagnosis of Seizure, [...] CT brain concerning for hydrocephalus. Tip of ANALYTICS SENIOR MANAGER shunt was found to be in the [...] slow to respond. Ordered to transfer to [facility] ED for evaluation of neurological and [...] changes in co (more content not included)... [facility]03-04-2022 [facility]03-04-2022 [facility]03-02-2022 NoteHNO ID: [id number] Author: Sukhi Chery APRN.VICTORIANO Service: ? Author Type: Nurse Practitioner Type: Progress Notes Filed: 07/09/2021 6:20 PM Note Text: Connected Care Unit Progress Note Patient Name: Andrew Sifuentes Patient Facility: [facility] Admit Date 06/28/2021 Level of Care: Skilled [...] Location Dept Phone 07/21/2021 11:00 AM [facility] [phone] HPI: (Per Dr. Beltran) Andrew Sifuentes is being seen today for alf facility (SNF) admission AND management of weakness, tube feed, infected retroperitoneal infection and seizure. ? This is a 71 year old male who presents from [facility] with primary admitting diagnosis of Seizure, [...] CT brain concerning for hydrocephalus. Tip of ANALYTICS SENIOR MANAGER shunt was found to be in the [...] Pharynx: Oropharynx is clear. (more content not included)...[facility]02-28-2022 NoteHNO ID: [id number] Author: Sukhi Chery APRN.CNP Service: ? Author Type: Nurse Practitioner Type: Progress Notes Filed: 07/09/2021 6:07 PM Note Text: Connected Care Unit Progress Note Patient Name: Andrew Sifuentes Patient Facility: [facility] Admit Date 06/28/2021 Level of Care: Skilled [...] but nursing notes it was drawn by journeyman level acoustic analyst as vancomycin was being infused; reordered trough - PICC Line Intact - No fevers or chills per patient or staff (R53.81) Debility - Certify therapies - Maintain high falls risk precautions - pt/staff verbalize understanding validated via teach back - Monitor safety awareness Appointments for Next 60 Days Date Time Provider Location Dept Phone 07/21/2021 11:00 AM [facility] [phone] HPI: (Per Dr. Beltran) Andrew Sifuentes is being seen today for alf facility (SNF) admission AND management of weakness, tube feed, infected retroperitoneal infection and seizure. ? This is a 71 year old male who presents from [facility] with primary admitting diagnosis of Seizure, [...] CT brain concerning for hydrocephalus. Tip of ANALYTICS SENIOR MANAGER shunt was found to be in the [...] uncontrolled pain exacerbations. Medications: Medications listed in [facility] during SNF admission may not be current. Refer to facility record. Patient records, current medications, most recent labs, family/social history (unchanged) Reviewed. Refer to facility records. OBJECTIVE: Labs/diagnostics: 07/04/2021 Glucose=91 Dg=932 K=3.8 Ut=637 CO2=24 BUN=14 Creatinine=0.5 JAE=058 Ca=9.0 Protein,Total=6.7 Albumin=3.6 XrvZjfg=977 AST=15 ALT=21 Bilirubin,Totall=0.5 WBC=10.7 RBC=4.04 Hgb=10.9 Hct=35.3 Spmxilmx=671 VancomycinTr (more content not included)...[facility]02-24-2022 NoteHNO ID: [id number] Author: Sukhi Chery APRN.VICTORIANO Service: ? Author Type: Nurse Practitioner Type: Progress Notes Filed: 07/09/2021 5:43 PM Note Text: Connected Care Unit Progress Note Patient Name: Andrew Sifuentes Patient Facility: [facility] Admit Date 06/28/2021 Level of Care: Skilled [...] Dept Phone 07/21/2021 11:00 AM NICOLE LIM [phone] HPI: (Per Dr. Beltran) Andrew Sifuentes is being seen today for alf facility (SNF) admission AND management of weakness, tube feed, infected retroperitoneal infection and seizure. ? This is a 71 year old male who presents from [facility] with primary admitting diagnosis of Seizure, [...] CT brain concerning for hydrocephalus. Tip of ANALYTICS SENIOR MANAGER shunt was found to be in the [...] to facility records. OBJECTIVE: Labs/diagnostics: 07/01/2021 Glucose=83 Nx=548 K=4.1 Vt=673 CO2=27 BUN=22 Creatinine=0.6 FAZ=744 Ca=8.7 WBC=10.8 RBC=3.40 Hgb=9.3 Hct=29.9 Nxgxwaiu=285 Vital Signs: BP 128/80 Pulse 77 Temp 36.7 ?C (98 ?F) Resp 20 Ht 182.9 cm (6') Wt 113 kg (249 lb 3.2 oz) SpO2 96% BMI 33.80 kg/m? Physical Exam: Physical Exam Vitals reviewed. Constitutional: General: He is not in acute distress. (more content not included)...[facility]02-22-2022 [facility]02-22-2022 [facility]02-21-2022 [facility]02-21-2022 Note [facility]02-20-2022 [facility] 06-26-2021 [facility]02-19-2022 [facility]02-19-2022 [facility]02-18-2022 [facility]02-18-2022 [facility]02[facility]18-2022 [facility]02-17-2022 [facility]02-17-2022 Note [facility]02-17-2022 [facility] 06-22-2021 NoteHNO ID: [id number] Author: Xiomy England RN Service: Nursing Author Type: Registered Nurse Type: Nursing Progress Note Filed: 06/22/2021 7:22 PM Note Text: RT contacted as pt has wheezing auscultated and same auditory. For prn Treatment.[facility]02-16-2022 [facility]02-16-2022 [facility]02-16-2022 [facility]02-16-2022 [facility]02-16-2022 [facility]02-15-2022 [facility]02-15-2022 Note [facility]02-15-2022 [facility] 06-21-2021 [facility]02-14-2022 [facility]02-14-2022 [facility]02-14-2022 [facility]02-14-2022 [facility]02-14-2022 [facility]02-13-2022 [facility]02-13-2022 Note [facility]02-13-2022 [facility] 06-19-2021 [facility]02-13-2022 [facility]02-12-2022 [facility]02-12-2022 [facility]02-12-2022 [facility]02-12-2022 [facility]02-12-2022 [facility]02-12-2022 Note [facility]02-12-2022 NoteHNO ID: [id number] Author: Interface Note Service: ? Author Type: ? Type: Progress Notes Filed: 06/18/2021 3:10 AM Note Text: Epic Scheduled Downtime: 06/18/2021 1:00:00 AM to 06/18/2021 2:27:00 [facility]02-11-2022 [facility]02-11-2022 Note [facility]02-11-2022 [facility] 06-17-2021 [facility]02-11-2022 [facility]02-11-2022 [facility]02-10-2022 [facility]02-10-2022 [facility]02[facility]10-2022 [facility]02-10-2022 [facility]02-10-2022 Note [facility]02-10-2022 [facility] 06-15-2021 [facility]02-09-2022 NoteHNO ID: [id number] Author: Lamonte Kline DO Service: Neurology ICU Author Type: Resident Type: Plan of Care Filed: 06/15/2021 6:21 PM Note Text: Patient's daughter Melissa updated on plan of care and critical condition, all questions answered.[facility]02-09-2022 [facility]02-09-2022 [facility]02-09-2022 [facility]02-09-2022 [facility]02-09-2022 Note [facility]02-09-2022 [facility] 06-15-2021 [facility]02-08-2022 [facility]02-08-2022 [facility]02-08-2022 [facility]02-08-2022 [facility]02-07-2022 [facility]02-07-2022 [facility]02-07-2022 Note [facility]02-07-2022 [facility] 06-12-2021 [facility]02-06-2022 [facility]02-06-2022 [facility]02-05-2022 [facility]02-05-2022 [facility]02-04-2022 [facility]02-04-2022 [facility]02-04-2022 Note [facility]02-04-2022 [facility] 06-09-2021 [facility]02-03-2022 [facility]02-03-2022 [facility]02-03-2022 [facility]02-02-2022 [facility]02-02-2022 NoteHNO ID: [id number] Author: Luis Diaz RN Service: ? Author Type: Registered Nurse Type: Nursing Progress Note Filed: 06/08/2021 9:23 AM Note Text: Patient off the floor to OR at this time.[facility]02-02-2022 [facility]02-02-2022 [facility] 06-08-2021 NoteHNO ID: [id number] Author: Eloise Samuel RN Service: ? Author Type: Registered Nurse Type: Nursing Progress Note Filed: 06/08/2021 12:46 AM Note Text: Dr. Brito notified of changes throughout shift. [facility] 06-07-2021 NoteHNO ID: [id number] Author: Eloise Samuel RN Service: ? Author Type: Registered Nurse Type: Nursing Progress Note Filed: 06/07/2021 8:01 PM Note Text: Neuro surg WEIGHER AND MIXER notified of downward deviation of pupils. No new orders at this time.[facility]02-01-2022 [facility]02-01-2022 [facility]02-01-2022 [facility]02-01-2022 [facility]01-31-2022 [facility]01-31-2022 [facility]01-31-2022 Note [facility]01-31-2022 [facility] 06-05-2021 [facility]01-30-2022 [facility]01-30-2022 [facility]01-29-2022 [facility]01-29-2022 NoteHNO ID: [id number] Author: Jermaine Miller PA-C Service: Neurosurgery Author Type: Physician Calender Roll Press Operator Type: Plan of Care Filed: 06/04/2021 1:59 PM Note Text: Discussed with Dr. Charles CT brain results. At this time, continue with EVD [facility] 5 mmHg[facility] 06-04-2021 [facility]01-28-2022 [facility]01-28-2022 NoteHNO ID: [id number] Author: Mauricio Frank DO Service: Neurology ICU Author Type: Physician Type: Plan of Care Filed: 06/03/2021 2:38 PM Note Text: I spoke with Melissa and updated her over the phone. Mauricio Frank, [facility]01-28-2022 [facility]01-28-2022 [facility]01-27-2022 [facility]01-27-2022 [facility]01-27-2022 Note [facility]01-26-2022 [facility] 06-01-2021 [facility]01-26-2022 [facility]01-26-2022 [facility]01-26-2022 [facility]01-25-2022 [facility]01-25-2022 [facility]01-25-2022 [facility]01-25-2022 Note [facility]01-25-2022 [facility] 05-31-2021 [facility] [...] Work Phone: Evaluation noteNo assessment information available [facility] Work Phone: Evaluation note* Diagnosis Other [...] tract symptoms (LUTS) [facility] Left flank pain Abdominal pain, unspecified site Calculus of ureter [facility]* Diagnosis Left flank pain- Primary Abdominal pain, unspecified site BPH with urinary obstruction Hypertrophy of prostate with urinary obstruction and other lower urinary tract symptoms (LUTS) History of kidney stones documented in this encounter [facility] HealthInstructions* Name Dates Details Instructions not documented [facility] Work Phone: Instructions* Name Dates Details Instructions not documented [facility] [address] [place] Work Phone: Reason for referral (narrative)No reason for referral information availableWTriHealth [facility] Work Phone: Advance Directives No Advanced Directives Records FoundDocuments on File Type Date Recorded Patient Powerhouse Oiler Expl anation Advance Directives and Living Will Power of Circle Beveler Documents on File Type Date Recorded Patient Powerhouse Oiler Expl anation Advance Directive(s) 06/02/2021 2:45 PM [...] Maker Relationship: 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 Adult 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) Documents on File Type Date Recorded Patient Powerhouse Oiler Expl anation ACP-Advance Directive ACP-Power of Circle Beveler Latest Code Status on File Code Status Date Activated Date Inactivated Comments Full Code 10/21/2021 4:09 AM Healthcare Agents on File Name Relationship Healthcare Agent Relationshi p Communication Melissa Sifuentes Child Primary Decision Maker deann Sifuentes Child Secondary Decision Maker Documents on File Type Date Recorded Patient Powerhouse Oiler Expl anation ACP-Advance Directive ACP-Power of Circle Beveler ACP-Do Not Resuscitate 11/01/2021 7:03 AM Latest Code Status on File Code Status Date Activated Date Inactivated Comments Full Code 10/21/2021 4:09 AM 10/29/2021 7:25 PM Healthcare Agents on File Name Relationship Healthcare Agent Relationshi p Communication Melissa Gurpreet Child Primary Decision Maker deann Gurpreet Child Secondary Decision Maker Documents on File Type Date Recorded Patient Powerhouse Oiler Expl anation ACP-Do Not Resuscitate 11/03/2021 10:15 AM ACP-Do Not Resuscitate 11/01/2021 7:03 AM Healthcare Agents on File Name Relationship Healthcare Agent Relationshi p Communication Melissa Gurpreet Child Primary Decision Maker deann Gurpreet Child Secondary Decision Maker Documents on File Type Date Recorded Patient Powerhouse Oiler Expl anation ACP-Do Not Resuscitate 11/03/2021 10:15 [...] Documents on File Type Date Recorded Patient Powerhouse Oiler Expl anation DNR (Do Not Resuscitate) 10/31/2021 DNR (Do Not Resuscitate) 10/21/2021 Documents on File Type Date Recorded Patient Powerhouse Oiler Expl anation DNR (Do Not Resuscitate) 10/31/2021 [...] WORK LABWORK Chief Complaint LAB WORK LABWORK PRISON LAB WORK PRISON LABWORK Chief Complaint LAB WORK LABWORK PRISON LAB WORK PRISON LABWORK LABWORK LABWORK PRISON LAB WORK PRISON LABWORK PRISON LAB WORK LABWORK PRISON LAB WORK LABWORK PRISON LABWORK Chief Complaint LAB WORK LABWORK PRISON LAB WORK PRISON LABWORK LABWORK LABWORK PRISON LAB WORK PRISON LABWORK PRISON LAB WORK LABWORK PRISON LAB WORK LABWORK PRISON LABWORK PRISON LABWORK LABWORK Chief Complaint LAB WORK LABWORK PRISON LAB WORK PRISON LABWORK LABWORK LABWORK PRISON LAB WORK PRISON LABWORK PRISON LAB WORK LABWORK PRISON LAB WORK LABWORK PRISON LABWORK PRISON LABWORK LABWORK PRISON LAB WORK Chief Complaint LABWORK PRISON LAB WORK PRISON LABWORK LABWORK LABWORK PRISON LAB WORK PRISON LABWORK PRISON LAB WORK LABWORK PRISON LAB WORK LABWORK PRISON LABWORK PRISON LABWORK LABWORK LABWORK PRISON LAB WORK Chief Complaint LABWORK PRISON LAB WORK PRISON LABWORK LABWORK LABWORK PRISON LAB WORK PRISON LABWORK PRISON LAB WORK LABWORK PRISON LAB WORK LABWORK PRISON LABWORK PRISON LABWORK LABWORK LABWORK PRISON LAB WORK LABWORK PRISON LABWORK PRISON LAB WORK PRISON LABWORK Chief Complaint PRISON LAB WOR K PRISON LABWORK LABWORK LABWORK PRISON LAB WORK PRISON LABWORK PRISON LAB WORK LABWORK PRISON LAB WORK LABWORK PRISON LABWORK PRISON LABWORK LABWORK LABWORK PRISON LAB WORK LABWORK PRISON LABWORK PRISON LAB WORK PRISON LABWORK PRISON LAB WORK Chief Complaint PRISON LABWORK LABWORK LABWORK PRISON LAB WORK PRISON LABWORK PRISON LAB WORK LABWORK PRISON LAB WORK LABWORK PRISON LABWORK PRISON LABWORK LABWORK LABWORK PRISON LAB WORK LABWORK PRISON LABWORK PRISON LAB WORK PRISON LABWORK LABWORK PRISON LAB WORK Chief Complaint PRISON LAB WOR K PRISON LABWORK PRISON LAB WORK LABWORK PRISON LAB WORK LABWORK PRISON LABWORK PRISON LABWORK LABWORK LABWORK PRISON LAB WORK LABWORK PRISON LABWORK PRISON LAB WORK PRISON LABWORK LABWORK LABWORK PRISON LAB WORK PRISON PATIENT PRISON LABWORK PRISON LABWORK Chief Complaint LABWORK PRISON LAB WORK LABWORK PRISON LABWORK PRISON LABWORK LABWORK LABWORK PRISON LAB WORK LABWORK PRISON LABWORK PRISON LAB WORK PRISON LABWORK LABWORK LABWORK PRISON LAB WORK PRISON PATIENT PRISON LABWORK PRISON LABWORK PRISON LAB WORK Chief Complaint LABWORK PRISON LABWORK PRISON LABWORK LABWORK LABWORK PRISON LAB WORK LABWORK PRISON LABWORK PRISON LAB WORK PRISON LABWORK LABWORK LABWORK PRISON LAB WORK PRISON PATIENT PRISON LABWORK PRISON LABWORK PRISON LAB WORK PRISON LAB WORK PRISON LAB WORK Chief Complaint LABWORK LABWORK PRISON LAB WORK PRISON PATIENT PRISON LABWORK PRISON LABWORK PRISON LAB WORK PRISON LAB WORK PRISON LAB WORK PRISON LABWORK PRISON LABWORK LABWORK PRISON LAB WORK LABWORK Chief Complaint PRISON LAB WOR K PRISON PATIENT PRISON LABWORK PRISON LABWORK PRISON LAB WORK PRISON LAB WORK PRISON LAB WORK PRISON LABWORK PRISON LABWORK LABWORK PRISON LAB WORK LABWORK PRISON LABWORK Chief Complaint PRISON PATIENT PRISON LABWORK PRISON LABWORK PRISON LAB WORK PRISON LAB WORK PRISON LAB WORK PRISON LABWORK PRISON LABWORK LABWORK PRISON LAB WORK LABWORK PRISON LABWORK PRISON LABWORK Chief Complaint PRISON LABWORK PRISON LAB WORK PRISON LAB WORK PRISON LAB WORK PRISON LABWORK PRISON LABWORK LABWORK PRISON LAB WORK LABWORK PRISON LABWORK PRISON LABWORK PRISON LABWORK Chief Complaint PRISON LABWORK PRISON LAB WORK PRISON LAB WORK PRISON LAB WORK PRISON LABWORK PRISON LABWORK LABWORK PRISON LAB WORK LABWORK PRISON LABWORK PRISON LABWORK PRISON LABWORK PRISON LABWORK Chief Complaint PRISON LABWORK LABWORK PRISON LAB WORK LABWORK PRISON LABWORK PRISON LABWORK PRISON LABWORK PRISON LABWORK PRISON LABWORK LABWORK PRISON LABWORK Chief Complaint LABWORK PRISON LAB WORK LABWORK PRISON LABWORK PRISON LABWORK PRISON LABWORK PRISON LABWORK PRISON LABWORK LABWORK LABWORK PRISON LABWORK PRISON LAB WORK PRISON LABWORK PRISON LAB WORK Chief Complaint LABWORK PRISON LAB WORK LABWORK PRISON LABWORK PRISON LABWORK PRISON LABWORK PRISON LABWORK PRISON LABWORK LABWORK LABWORK PRISON LABWORK PRISON LAB WORK PRISON LABWORK PRISON LAB WORK PRISON LABWORK Chief Complaint LABWORK PRISON LAB WORK LABWORK PRISON LABWORK PRISON LABWORK PRISON LABWORK PRISON LABWORK PRISON LABWORK LABWORK LABWORK PRISON LABWORK PRISON LAB WORK PRISON LABWORK PRISON LAB WORK PRISON LABWORK LABWORK Chief Complaint PRISON LABWORK PRISON LABWORK PRISON LABWORK PRISON LABWORK PRISON LABWORK LABWORK LABWORK PRISON LABWORK PRISON LAB WORK PRISON LABWORK PRISON LAB WORK PRISON LABWORK LABWORK PRISON LABWORK Chief Complaint PRISON LABWORK PRISON LABWORK PRISON LABWORK PRISON LABWORK PRISON LABWORK LABWORK LABWORK PRISON LABWORK PRISON LAB WORK PRISON LABWORK PRISON LAB WORK PRISON LABWORK LABWORK PRISON LABWORK LABWORK Chief Complaint PRISON LABWORK LABWORK LABWORK PRISON LABWORK PRISON LAB WORK PRISON LABWORK PRISON LAB WORK PRISON LABWORK LABWORK PRISON LABWORK LABWORK PRISON LAB WORK PRISON LAB WORK PRISON LABWORK Chief Complaint LABWORK PRISON LABWORK LABWORK PRISON LAB WORK PRISON LAB WORK PRISON LABWORK PRISON LABWORK PRISON LAB WORK PRISON LAB WORK PRISON LAB WORK LABWORK PRISON LABWORK Chief Complaint PRISON LAB WOR K PRISON LAB WORK PRISON LABWORK PRISON LABWORK PRISON LAB WORK PRISON LAB WORK PRISON LAB WORK LABWORK PRISON LABWORK LABWORK PRISON LAB WORK PRISON LAB WORK Chief Complaint PRISON LAB WOR K PRISON LABWORK PRISON LABWORK PRISON LAB WORK PRISON LAB WORK PRISON LAB WORK LABWORK PRISON LABWORK LABWORK PRISON LAB WORK PRISON LAB WORK Chief Complaint PRISON LABWORK PRISON LABWORK PRISON LAB WORK PRISON LAB WORK PRISON LAB WORK LABWORK PRISON LABWORK LABWORK PRISON LAB WORK PRISON LAB WORK PRISON LABWORK LABWORK LABWORK Chief Complaint PRISON LAB WOR K PRISON LAB WORK PRISON LAB WORK LABWORK PRISON LABWORK LABWORK PRISON LAB WORK PRISON LAB WORK PRISON LABWORK LABWORK LABWORK LABWORK LABWORK LABWORK Chief Complaint PRISON LAB WOR K LABWORK PRISON LABWORK LABWORK PRISON LAB WORK PRISON LAB WORK PRISON LABWORK LABWORK LABWORK LABWORK LABWORK PRISON LABWORK PRISON LAB WORK LABWORK PRISON LAB WORK PRISON LAB WORK Chief Complaint PRISON LAB WOR K LABWORK PRISON LABWORK LABWORK PRISON LAB WORK PRISON LAB WORK PRISON LABWORK LABWORK LABWORK LABWORK LABWORK PRISON LABWORK PRISON LAB WORK LABWORK PRISON LAB WORK PRISON LAB WORK PRISON LABWORK Chief Complaint PRISON LAB WOR K PRISON LAB WORK PRISON LABWORK LABWORK LABWORK LABWORK LABWORK PRISON LABWORK PRISON LAB WORK LABWORK PRISON LAB WORK PRISON LAB WORK PRISON LABWORK NUSING HOME LAB WORK Chief Complaint PRISON LAB WOR K PRISON LABWORK LABWORK LABWORK LABWORK LABWORK PRISON LABWORK PRISON LAB WORK LABWORK PRISON LAB WORK PRISON LAB WORK PRISON LABWORK NUSING HOME LAB WORK LABWORK Chief Complaint PRISON LAB WOR K PRISON LABWORK LABWORK LABWORK LABWORK LABWORK PRISON LABWORK PRISON LAB WORK LABWORK PRISON LAB WORK PRISON LAB WORK PRISON LABWORK NUSING HOME LAB WORK PRISON LABWORK LABWORK Chief Complaint LABWORK PRISON LAB WORK PRISON LAB WORK PRISON LABWORK NUSING HOME LAB WORK PRISON LABWORK LABWORK PRISON LABWORK PRISON LAB WORK LABWORK LABWORK Chief Complaint NUSING HOME LAB WORK PRISON LABWORK LABWORK PRISON LABWORK PRISON LAB WORK LABWORK PRISON LAB WORK LABWORK LABWORK Chief Complaint NUSING HOME LAB WORK PRISON LABWORK LABWORK PRISON LABWORK PRISON LAB WORK LABWORK PRISON LAB WORK LABWORK PRISON LAB WORK LABWORK Chief Complaint PRISON LABWORK LABWORK PRISON LABWORK PRISON LAB WORK LABWORK PRISON LAB WORK LABWORK PRISON LAB WORK LABWORK LABWORK Chief Complaint PRISON LABWORK LABWORK PRISON LABWORK PRISON LAB WORK LABWORK PRISON LAB WORK LABWORK PRISON LAB WORK LABWORK LABWORK LABWORK Chief Complaint PRISON LABWORK LABWORK PRISON LABWORK PRISON LAB WORK LABWORK PRISON LAB WORK LABWORK PRISON LAB WORK LABWORK LABWORK LABWORK LABWORK Chief Complaint PRISON LABWORK LABWORK PRISON LABWORK PRISON LAB WORK LABWORK PRISON LAB WORK LABWORK PRISON LAB WORK LABWORK LABWORK PRISON LAB WORK LABWORK LABWORK LABWORK Chief Complaint LABWORK PRISON LABWORK PRISON LAB WORK LABWORK PRISON LAB WORK LABWORK PRISON LAB WORK LABWORK LABWORK PRISON LAB WORK LABWORK LABWORK LABWORK LABWORK LABWORK LABWORK LABWORK Chief Complaint PRISON LABWORK PRISON LAB WORK LABWORK PRISON LAB WORK LABWORK PRISON LAB WORK LABWORK LABWORK PRISON LAB WORK LABWORK LABWORK LABWORK LABWORK LABWORK LABWORK LABWORK LABWORK Chief Complaint LABWORK PRISON LAB WORK LABWORK PRISON LAB WORK LABWORK LABWORK PRISON LAB WORK LABWORK LABWORK LABWORK LABWORK LABWORK LABWORK LABWORK LABWORK LABWORK Chief Complaint PRISON LABWORK LABWORK LABWORK LABWORK LABWORK PRISON LABWORK PRISON LAB WORK LABWORK PRISON LAB WORK PRISON LAB WORK PRISON LABWORK NUSING HOME LAB WORK PRISON LABWORK LABWORK PRISON LABWORK PRISON LAB WORK Chief Complaint Admit Date PRISON LAB WORK March 13, 2024 5:00am LABWORK March 14, 2024 5 :00am PRISON LAB WORK March 17 4 5:00am PRISON LAB WORK March 18 4 5:00am PRISON LAB WORK March 19 4 4:00am PRISON LAB WORK March 20 4 5:00am PRISON LAB WORK March 24 5:00am PRISON LAB WORK March 27 5:00am LABWORK March 31, 2024 5:00am PRISON LAB WORK April 04 5:00am LABWORK April 07, 2024 5 :00am PRISON LAB WORK April 10, 2024 5:00am PRISON LAB WORK April 14, 2024 5:00am PRISON LAB WORK April 17 5:00am LABWORK April 21, 2024 5:00am PRISON LAB WORK April 24 4:00am LABWORK April 28, 2024 5:00am PRISON LAB WORK May 01 4:00am PRISON LAB WORK May 05 5:00am PRISON LAB WORK May 08, 2024 5:00am PRISON LAB WORK May 09, 2024 4:00am LABWORK May 12, 2024 5: 00am PRISON LAB WORK May 15, 2024 5:00am PRISON LAB WORK May 19, 2024 4:00am PRISON LAB WORK May 20, 2024 5:00am PRISON LAB WORK May 22, 2024 5:00am LABWORK May 26, 2024 5 :00am PRISON LAB WORK May 29, 2024 5:00am PRISON LAB WORK June 02, 2024 5:00am PRISON LAB WORK June 05, 2024 5:00am LABWORK June 09, 2024 5 :00am PRISON LAB WORK June 12, 2024 5:00am PRISON LAB WORK June 16 5:00am PRISON LAB WORK June 19 5:00am LABWORK June 23, 2024 5:00am PRISON LAB WORK June 26 5:00am PRISON LAB WORK June 30 5:00am Chief Complaint Admit Date LABWORK April 07, 2024 5 :00am PRISON LAB WORK April 10, 2024 5:00am PRISON LAB WORK April 14, 2024 5:00am PRISON LAB WORK April 17 5:00am LABWORK April 21, 2024 5:00am PRISON LAB WORK April 24 4:00am LABWORK April 28, 2024 5:00am PRISON LAB WORK May 01 4:00am PRISON LAB WORK May 05 5:00am PRISON LAB WORK May 08, 2024 5:00am PRISON LAB WORK May 09, 2024 4:00am LABWORK May 12, 2024 5: 00am PRISON LAB WORK May 15, 2024 5:00am PRISON LAB WORK May 19, 2024 4:00am PRISON LAB WORK May 20, 2024 5:00am PRISON LAB WORK May 22, 2024 5:00am LABWORK May 26, 2024 5 :00am PRISON LAB WORK May 29, 2024 5:00am PRISON LAB WORK June 02, 2024 5:00am PRISON LAB WORK June 05, 2024 5:00am LABWORK June 09, 2024 5 :00am PRISON LAB WORK June 12, 2024 5:00am PRISON LAB WORK June 16 5:00am PRISON LAB WORK June 19 5:00am LABWORK June 23, 2024 5:00am PRISON LAB WORK June 26 5:00am PRISON LAB WORK June 30 5:00am PRISON LAB WORK July 03 5:00am PRISON LAB WORK July 07, 2024 4: 00am LABWORK July 11, 2024 5:00 am LABWORK July 14, 2024 5:0 0am PRISON LAB WORK July 17, 2024 4 :00am PRISON LAB WORK July 24, 2024 4 :00am Chief Complaint Admit Date PRISON LAB WORK April 14, 2024 5:00am PRISON LAB WORK April 17 5:00am LABWORK April 21, 2024 5:00am PRISON LAB WORK April 24 4:00am LABWORK April 28, 2024 5:00am PRISON LAB WORK May 01 4:00am PRISON LAB WORK May 05 5:00am PRISON LAB WORK May 08, 2024 5:00am PRISON LAB WORK May 09, 2024 4:00am LABWORK May 12, 2024 5: 00am PRISON LAB WORK May 15, 2024 5:00am PRISON LAB WORK May 19, 2024 4:00am PRISON LAB WORK May 20, 2024 5:00am PRISON LAB WORK May 22, 2024 5:00am LABWORK May 26, 2024 5 :00am PRISON LAB WORK May 29, 2024 5:00am PRISON LAB WORK June 02, 2024 5:00am PRISON LAB WORK June 05, 2024 5:00am LABWORK June 09, 2024 5 :00am PRISON LAB WORK June 12, 2024 5:00am PRISON LAB WORK June 16 5:00am PRISON LAB WORK June 19 5:00am LABWORK June 23, 2024 5:00am [facility] WORK June 26 5:00am [facility] WORK June 30 5:00am [facility] WORK July 03 5:00am [facility] LAB WORK July 07, 2024 4: 00am LABWORK July 11, 2024 5:00 am LABWORK July 14, 2024 5:0 0am PR[facility] LAB WORK July 17, 2024 4 :00am [facility] LAB WORK July 24, 2024 4 :00am LABWORK July 25, 2024 5:0 0am Chief Complaint Admit Date PRISON LAB WORK April 14, 2024 5:00am PR[facility] LAB WORK April 17 5:00am LABWORK April 21, 2024 5:00am PR[facility] LAB WORK April 24 4:00am LABWORK April 28, 2024 5:00am PR[facility] LAB WORK May 01 4:00am PR[facility] LAB WORK May 05 5:00am PRISON LAB WORK May 08, 2024 5:00am PRISON LAB WORK May 09, 2024 4:00am LABWORK May 12, 2024 5: 00am PRISON LAB WORK May 15, 2024 5:00am PRISON LAB WORK May 19, 2024 4:00am PRISON LAB WORK May 20, 2024 5:00am PRISON LAB WORK May 22, 2024 5:00am LABWORK May 26, 2024 5 :00am PRISON LAB WORK May 29, 2024 5:00am PRISON LAB WORK June 02, 2024 5:00am PRISON LAB WORK June 05, 2024 5:00am LABWORK June 09, 2024 5 :00am PRISON LAB WORK June 12, 2024 5:00am PRISON LAB WORK June 16 5:00am PRISON LAB WORK June 19 5:00am LABWORK June 23, 2024 5:00am PRISON LAB WORK June 26 5:00am PRISON LAB WORK June 30 5:00am PRISON LAB WORK July 03 5:00am PRISON LAB WORK July 07, 2024 4: 00am LABWORK July 11, 2024 5:00 am LABWORK July 14, 2024 5:0 0am PRISON LAB WORK July 17, 2024 4 :00am PRISON LAB WORK July 21, 2024 5 :00am PRISON LAB WORK July 24, 2024 4 :00am LABWORK July 25, 2024 5:0 0am PRISON LAB WORK July 31, 2024 4 :00am Chief Complaint Admit Date PRISON LAB WORK April 17 5:00am LABWORK April 21, 2024 5:00am PRISON LAB WORK April 24 4:00am LABWORK April 28, 2024 5:00am PRISON LAB WORK May 01 4:00am PRISON LAB WORK May 05 5:00am PRISON LAB WORK May 08, 2024 5:00am PRISON LAB WORK May 09, 2024 4:00am LABWORK May 12, 2024 5: 00am PRISON LAB WORK May 15, 2024 5:00am PRISON LAB WORK May 19, 2024 4:00am PRISON LAB WORK May 20, 2024 5:00am PRISON LAB WORK May 22, 2024 5:00am LABWORK May 26, 2024 5 :00am PRISON LAB WORK May 29, 2024 5:00am PRISON LAB WORK June 02, 2024 5:00am PRISON LAB WORK June 05, 2024 5:00am LABWORK June 09, 2024 5 :00am PRISON LAB WORK June 12, 2024 5:00am PRISON LAB WORK June 16 5:00am PRISON LAB WORK June 19 5:00am LABWORK June 23, 2024 5:00am PRISON LAB WORK June 26 5:00am PRISON LAB WORK June 30 5:00am PRISON LAB WORK July 03 5:00am PRISON LAB WORK July 07, 2024 4: 00am LABWORK July 11, 2024 5:00 am LABWORK July 14, 2024 5:0 0am PRISON LAB WORK July 17, 2024 4 :00am PRISON LAB WORK July 21, 2024 5 :00am PRISON LAB WORK July 24, 2024 4 :00am LABWORK July 25, 2024 5:0 0am PRISON LAB WORK July 28, 2024 5 :00am PRISON LAB WORK July 31, 2024 4 :00am Chief Complaint Admit Date PRISON LAB WORK April 24 4:00am LABWORK April 28, 2024 5:00am PRISON LAB WORK May 01 4:00am PRISON LAB WORK May 05 5:00am PRISON LAB WORK May 08, 2024 5:00am PRISON LAB WORK May 09, 2024 4:00am LABWORK May 12, 2024 5: 00am PRISON LAB WORK May 15, 2024 5:00am PRISON LAB WORK May 19, 2024 4:00am PRISON LAB WORK May 20, 2024 5:00am PRISON LAB WORK May 22, 2024 5:00am LABWORK May 26, 2024 5 :00am PRISON LAB WORK May 29, 2024 5:00am PRISON LAB WORK June 02, 2024 5:00am PRISON LAB WORK June 05, 2024 5:00am LABWORK June 09, 2024 5 :00am PRISON LAB WORK June 12, 2024 5:00am PRISON LAB WORK June 16 5:00am PRISON LAB WORK June 19 5:00am LABWORK June 23, 2024 5:00am PRISON LAB WORK June 26 5:00am PRISON LAB WORK June 30 5:00am PRISON LAB WORK July 03 5:00am PRISON LAB WORK July 07, 2024 4: 00am LABWORK July 11, 2024 5:00 am LABWORK July 14, 2024 5:0 0am PRISON LAB WORK July 17, 2024 4 :00am PRISON LAB WORK July 21, 2024 5 :00am PRISON LAB WORK July 24, 2024 4 :00am LABWORK July 25, 2024 5:0 0am PRISON LAB WORK July 28, 2024 5 :00am PRISON LAB WORK July 31, 2024 4 :00am LABWORK August 04, 2024 5:0 0am Chief Complaint Admit Date PRISON LAB WORK May 15, 2024 5:00am PRISON LAB WORK May 19, 2024 4:00am PRISON LAB WORK May 20, 2024 5:00am PRISON LAB WORK May 22, 2024 5:00am LABWORK May 26, 2024 5 :00am PRISON LAB WORK May 29, 2024 5:00am PRISON LAB WORK June 02, 2024 5:00am PRISON LAB WORK June 05, 2024 5:00am LABWORK June 09, 2024 5 :00am PRISON LAB WORK June 12, 2024 5:00am PRISON LAB WORK June 16 5:00am PRISON LAB WORK June 19 5:00am LABWORK June 23, 2024 5:00am PRISON LAB WORK June 26 5:00am PRISON LAB WORK June 30 5:00am PRISON LAB WORK July 03 5:00am PRISON LAB WORK July 07, 2024 4: 00am LABWORK July 11, 2024 5:00 am LABWORK July 14, 2024 5:0 0am PRISON LAB WORK July 17, 2024 4 :00am PRISON LAB WORK July 21, 2024 5 :00am PRISON LAB WORK July 24, 2024 4 :00am LABWORK July 25, 2024 5:0 0am PRISON LAB WORK July 28, 2024 5 :00am PRISON LAB WORK July 31, 2024 4 :00am LABWORK August 04, 2024 5:0 0am LABWORK August 07, 2024 5:00 am PRISON LAB WORK August 11, 2024 5: 00am PRISON LAB WORK August 14, 2024 5 :00am PRISON LAB WORK August 18, 2024 5 :00am Chief Complaint Admit Date PRISON LAB WORK May 20, 2024 5:00am PRISON LAB WORK May 22, 2024 5:00am LABWORK May 26, 2024 5 :00am PRISON LAB WORK May 29, 2024 5:00am PRISON LAB WORK June 02, 2024 5:00am PRISON LAB WORK June 05, 2024 5:00am LABWORK June 09, 2024 5 :00am PRISON LAB WORK June 12, 2024 5:00am PRISON LAB WORK June 16 5:00am PRISON LAB WORK June 19 5:00am LABWORK June 23, 2024 5:00am PRISON LAB WORK June 26 5:00am PRISON LAB WORK June 30 5:00am PRISON LAB WORK July 03 5:00am PRISON LAB WORK July 07, 2024 4: 00am LABWORK July 11, 2024 5:00 am LABWORK July 14, 2024 5:0 0am PRISON LAB WORK July 17, 2024 4 :00am PRISON LAB WORK July 21, 2024 5 :00am PRISON LAB WORK July 24, 2024 4 :00am LABWORK July 25, 2024 5:0 0am PRISON LAB WORK July 28, 2024 5 :00am PRISON LAB WORK July 31, 2024 4 :00am LABWORK August 04, 2024 5:0 0am LABWORK August 07, 2024 5:00 am PRISON LAB WORK August 11, 2024 5: 00am PRISON LAB WORK August 14, 2024 5 :00am PRISON LAB WORK August 18, 2024 5 :00am LABWORK August 28, 2024 5:0 0am Chief Complaint Admit Date PRISON LAB WORK May 22, 2024 5:00am LABWORK May 26, 2024 5 :00am PRISON LAB WORK May 29, 2024 5:00am PRISON LAB WORK June 02, 2024 5:00am PRISON LAB WORK June 05, 2024 5:00am LABWORK June 09, 2024 5 :00am PRISON LAB WORK June 12, 2024 5:00am PRISON LAB WORK June 16 5:00am PRISON LAB WORK June 19 5:00am LABWORK June 23, 2024 5:00am PRISON LAB WORK June 26 5:00am PRISON LAB WORK June 30 5:00am PRISON LAB WORK July 03 5:00am PRISON LAB WORK July 07, 2024 4: 00am LABWORK July 11, 2024 5:00 am LABWORK July 14, 2024 5:0 0am PRISON LAB WORK July 17, 2024 4 :00am PRISON LAB WORK July 21, 2024 5 :00am PRISON LAB WORK July 24, 2024 4 :00am LABWORK July 25, 2024 5:0 0am PRISON LAB WORK July 28, 2024 5 :00am PRISON LAB WORK July 31, 2024 4 :00am LABWORK August 04, 2024 5:0 0am LABWORK August 07, 2024 5:00 am PRISON LAB WORK August 11, 2024 5: 00am PRISON LAB WORK August 14, 2024 5 :00am PRISON LAB WORK August 18, 2024 5 :00am PRISON LAB WORK August 21, 2024 5 :00am LABWORK August 28, 2024 5:0 0am LABWORK September 01, 2024 5:0 0am Chief Complaint Admit Date PRISON LAB WORK June 05, 2024 5:00am LABWORK June 09, 2024 5 :00am PRISON LAB WORK June 12, 2024 5:00am PRISON LAB WORK June 16 5:00am PRISON LAB WORK June 19 5:00am LABWORK June 23, 2024 5:00am PRISON LAB WORK June 26 5:00am PRISON LAB WORK June 30 5:00am PRISON LAB WORK July 03 5:00am PRISON LAB WORK July 07, 2024 4: 00am LABWORK July 11, 2024 5:00 am LABWORK July 14, 2024 5:0 0am PRISON LAB WORK July 17, 2024 4 :00am PRISON LAB WORK July 21, 2024 5 :00am PRISON LAB WORK July 24, 2024 4 :00am LABWORK July 25, 2024 5:0 0am PRISON LAB WORK July 28, 2024 5 :00am PRISON LAB WORK July 31, 2024 4 :00am LABWORK August 04, 2024 5:0 0am LABWORK August 07, 2024 5:00 am PRISON LAB WORK August 11, 2024 5: 00am PRISON LAB WORK August 14, 2024 5 :00am PRISON LAB WORK August 18, 2024 5 :00am PRISON LAB WORK August 21, 2024 5 :00am PRISON LAB WORK August 25, 2024 4 :00am LABWORK August 28, 2024 5:0 0am LABWORK September 01, 2024 5:0 0am LABWORK September 04, 2024 5:00am Chief Complaint Admit Date PRISON LAB WORK June 05, 2024 5:00am LABWORK June 09, 2024 5 :00am PRISON LAB WORK June 12, 2024 5:00am PRISON LAB WORK June 16 5:00am PRISON LAB WORK June 19 5:00am LABWORK June 23, 2024 5:00am PRISON LAB WORK June 26 5:00am PRISON LAB WORK June 30 5:00am PRISON LAB WORK July 03 5:00am PRISON LAB WORK July 07, 2024 4: 00am LABWORK July 11, 2024 5:00 am LABWORK July 14, 2024 5:0 0am PRISON LAB WORK July 17, 2024 4 :00am PRISON LAB WORK July 21, 2024 5 :00am PRISON LAB WORK July 24, 2024 4 :00am LABWORK July 25, 2024 5:0 0am PRISON LAB WORK July 28, 2024 5 :00am PRISON LAB WORK July 31, 2024 4 :00am LABWORK August 04, 2024 5:0 0am LABWORK August 07, 2024 5:00 am PRISON LAB WORK August 11, 2024 5: 00am PRISON LAB WORK August 14, 2024 5 :00am PRISON LAB WORK August 18, 2024 5 :00am PRISON LAB WORK August 21, 2024 5 :00am PRISON LAB WORK August 25, 2024 4 :00am LABWORK August 28, 2024 5:0 0am LABWORK September 01, 2024 5:0 0am LABWORK September 04, 2024 5:00am LABWORK September 15, 2024 5:00a m Chief Complaint Admit Date PRISON LAB WORK June 19 5:00am LABWORK June 23, 2024 5:00am PRISON LAB WORK June 26 5:00am PRISON LAB WORK June 30 5:00am PRISON LAB WORK July 03 5:00am PRISON LAB WORK July 07, 2024 4: 00am LABWORK July 11, 2024 5:00 am LABWORK July 14, 2024 5:0 0am PRISON LAB WORK July 17, 2024 4 :00am PRISON LAB WORK July 21, 2024 5 :00am PRISON LAB WORK July 24, 2024 4 :00am LABWORK July 25, 2024 5:0 0am PRISON LAB WORK July 28, 2024 5 :00am PRISON LAB WORK July 31, 2024 4 :00am LABWORK August 04, 2024 5:0 0am LABWORK August 07, 2024 5:00 am PRISON LAB WORK August 11, 2024 5: 00am PRISON LAB WORK August 14, 2024 5 :00am PRISON LAB WORK August 18, 2024 5 :00am PRISON LAB WORK August 21, 2024 5 :00am PRISON LAB WORK August 25, 2024 4 :00am LABWORK August 28, 2024 5:0 0am LABWORK September 01, 2024 5:0 0am LABWORK September 04, 2024 5:00am PRISON LAB WORK September 08, 2024 4:00 am PRISON LAB WORK September 11, 2024 5:00 am LABWORK September 15, 2024 5:00a m PRISON LAB WORK September 25, 2024 5:0 0am PRISON LAB WORK September 30, 2024 4:0 0am Chief Complaint Admit Date PRISON LAB WORK June 12, 2024 5:00am PRISON LAB WORK June 16 5:00am PRISON LAB WORK June 19 5:00am LABWORK June 23, 2024 5:00am PRISON LAB WORK June 26 5:00am PRISON LAB WORK June 30 5:00am PRISON LAB WORK July 03 5:00am PRISON LAB WORK July 07, 2024 4: 00am LABWORK July 11, 2024 5:00 am LABWORK July 14, 2024 5:0 0am PRISON LAB WORK July 17, 2024 4 :00am PRISON LAB WORK July 21, 2024 5 :00am PRISON LAB WORK July 24, 2024 4 :00am LABWORK July 25, 2024 5:0 0am PRISON LAB WORK July 28, 2024 5 :00am PRISON LAB WORK July 31, 2024 4 :00am LABWORK August 04, 2024 5:0 0am LABWORK August 07, 2024 5:00 am PRISON LAB WORK August 11, 2024 5: 00am PRISON LAB WORK August 14, 2024 5 :00am PRISON LAB WORK August 18, 2024 5 :00am PRISON LAB WORK August 21, 2024 5 :00am PRISON LAB WORK August 25, 2024 4 :00am LABWORK August 28, 2024 5:0 0am LABWORK September 01, 2024 5:0 0am LABWORK September 04, 2024 5:00am PRISON LAB WORK September 08, 2024 4:00 am LABWORK September 15, 2024 5:00a m Chief Complaint Admit Date PRISON LAB WORK July 07, 2024 4: 00am LABWORK July 11, 2024 5:00 am LABWORK July 14, 2024 5:0 0am PRISON LAB WORK July 17, 2024 4 :00am PRISON LAB WORK July 21, 2024 5 :00am PRISON LAB WORK July 24, 2024 4 :00am LABWORK July 25, 2024 5:0 0am PRISON LAB WORK July 28, 2024 5 :00am PRISON LAB WORK July 31, 2024 4 :00am LABWORK August 04, 2024 5:0 0am LABWORK August 07, 2024 5:00 am PRISON LAB WORK August 11, 2024 5: 00am PRISON LAB WORK August 14, 2024 5 :00am PRISON LAB WORK August 18, 2024 5 :00am PRISON LAB WORK August 21, 2024 5 :00am PRISON LAB WORK August 25, 2024 4 :00am LABWORK August 28, 2024 5:0 0am LABWORK September 01, 2024 5:0 0am LABWORK September 04, 2024 5:00am PRISON LAB WORK September 08, 2024 4:00 am PRISON LAB WORK September 11, 2024 5:00 am LABWORK September 15, 2024 5:00a m PRISON LAB WORK September 18, 2024 5:0 0am PRISON LAB WORK September 22, 2024 5:0 0am PRISON LAB WORK September 25, 2024 5:0 0am PRISON LAB WORK September 30, 2024 4:0 0am PRISON LAB WORK October 02, 2024 5:0 0am PRISON LAB WORK October 09, 2024 5:0 0am Reason for Referral Specialty Diagnoses / Procedures Referred By Contac t Referred To Contact Urology Diagnoses Other fatigue Lanette Munguia DO [address] [place] [address] [facility] [address] [place] [id number] Referral ID Status Reason Start Date Expiration Date V isits Requested Visits Authorized [id number] Open Specialty Services Required 11/01/2021 11/01/2022 1 1 Scheduling Instructions [facility] Urology - [address] [address] Specialty Diagnoses / Procedures Referred By Contac t Referred To Contact IP Unit Diagnoses Heel ulceration, left, with unspecified severity (HCC) Henry Hidalgo PA [address] [place] [address] [facility] [address] [place] [id number] Referral ID Status Reason Start Date Expiration Date V isits Requested Visits Authorized [id number] Open Specialty Services Required 12/22/2021 12/22/2022 1 1 Scheduling Instructions [facility] [address] [place] [id number] Comments Please use the parking lot located on [employer] or [employer]. There are handicap parking spots located in a small lot beside the wound care entrance off of [employer]. Please be advised there is a small incline from those handicap spots to our main door. Bring photo ID and insurance card to photocopy. Wear loose fitting clothing (to easily access wound). Bring list of medications (or can be sent by office). Check in at Registration for your first visit. Please call us directly with any questions [phone]. We look forward to helping you heal. Specialty Diagnoses / Procedures Referred By Contdesiree t Referred To Contact Radiology Diagnoses Left flank pain Calculus of ureter Procedures CT abdomen pelvis wo IV contrast Rebecca Buck MD [address] [place] [address] Referral ID Status Reason Start Date Expiration Date V isits Requested Visits Authorized [id number] Pending Review 08/13/2023 08/12/2024 1 1 Referral ID Status Reason Start Date Expiration Date Visits Re quested Visits Authorized [id number] Closed 08/17/2023 09/16/2023 1 1 Additional Source Comments Source Comments (unrecognize d section and content) In the event this informatio n is protected by the Federal Confidentiality of Alcohol and Drug Abuse Patient Records regulations: The Federal rules restrict any use of the information to criminally investigate or prosecute any alcohol or drug abuse patient.[facility] the event this information is protected by the Federal Confidentiality of Alcohol and Drug Abuse Patient Records regulations: The Federal rules restrict any use of the information to criminally investigate or prosecute any alcohol or drug abuse patient.[facility] (unrecognized sect ion and content) No Status Records FoundNo Status Records FoundNo Status Records FoundNo Status Records FoundNo Status Records FoundNo Status Records FoundNo Status Records FoundNo Status Records FoundNo Status Records FoundNo Status Records Found INFORMATION SOURCE (unrecogn ized section and content) DATE CREATED AUTHOR 05/20/2021 [facility] DATE CREATED AUTHOR AUTHOR'S ORGANIZ ATION 06/07/[address] [facility] DATE CREATED AUTHOR AUTHOR'S ORGANIZ ATION 08/02/2021 [facility] DATE CREATED AUTHOR AUTHOR'S ORGANIZ ATION 12/09/2021 [facility] DATE CREATED AUTHOR AUTHOR'S ORGANIZ ATION 12/29/2021 [facility] DATE CREATED AUTHOR AUTHOR'S ORGANIZ ATION 02/04/2022 [facility] DATE CREATED AUTHOR AUTHOR'S ORGANIZ ATION 03/03/2022 [facility] DATE CREATED AUTHOR AUTHOR'S ORGANIZ ATION 09/15/2023 [facility] DATE CREATED AUTHOR AUTHOR'S ORGANIZ ATION 12/24/2024 [facility] Reason for Visit (unrecogniz ed section and content) Reason Comments Missed Appointment Reason Comments Leg Swelling Blood clots Reason Comments Altered Mental Status Pt presents to ED via [facility] for complaint listed. Pt is from [facility]. Pt's LKW was 1000 hours today. Per EMS, pt had a - [place]. Pt denies CP, SOB, and N/V. Pt seems slow to respond, slightly confused at this time. Reason Comments Osteomyelitis Patient from [facility], facility did xrays on left lower leg and and have concerns for possible osteomyelitis A&Ox2 to self and place, stated year 2022 preside Miss martini Reason Comments Fall Patient had unwitnes sed fall at [facility] landed on butt. Is on thinners, denies [...] Buck MD [address] [place] [address] Referral ID Status Reason Start Date Expiration Date Visits Re quested Visits Authorized [id number] Closed 08/17/2023 09/16/2023 1 1 Reason Comments [...] Status Dates Carlos NOVAK Attending Provider Active Boiler Service Technician Relationship Specialty Start Date End Date Mateus Burris [address] [place], [place] [id number] PCP - General Family Practice 11/12/19 Boiler Service Technician Relationship Specialty [place] [address] [place] [address] PCP - General Family Medicine 09/09/20 Boiler Service Technician Relationship Specialty [place] [address] [place] [address] PCP - General Family Medicine 09/09/20 Boiler Service Technician Relationship Specialty [place] [address] [place] [address] PCP - General Family Medicine 09/09/20 Boiler Service Technician Relationship Specialty Start Date End Date Carlos Cavazos MD [address] [place] [address] PCP - General Internal Medicine 02/20/22 Team [...] Monika Staley MD Primary Care Provider Active Boiler Service Technician Relationship Specialty Start Date End Date Carlos Cavazos [address] [place] [phone] PCP - General 12/21/21 Rebecca Buck MD [address] [place] [address] [address] [place] [address] Surgeon Urology 06/25/23 Team Status: Inactive Member [...] NOVAK Attending Provider, Referring Provi lupillo Active Boiler Service Technician Relationship Specialty Start Date End Date KennyCarlos [address] [place] [phone] PCP - General 12/21/21 Rebecca Buck MD [address] [place] [address] Surgeon Urology 06/25/23 Boiler Service Technician Relationship Specialty Start Date End Date Carlos Cavazos [address] [place] [phone] PCP - General 12/21/21 Rebecca Buck MD [address] [place] [address] Surgeon Urology 06/25/23 Boiler Service Technician Relationship Specialty Start Date End Date Carlos Cavazos [address] [place] [phone] PCP - General 12/21/21 Rebecca Buck MD [address] [address] Surgeon Urology 06/25/23 Boiler Service Technician Relationship Specialty Start Date End Date Carlos Cavazos [address] [place] [phone] PCP - General 12/21/21 Rebecca Buck MD [address] [facility] [address] [place] [address] Surgeon Urology 06/25/23 Boiler Service Technician Relationship Specialty Start Date End Date Carlos Cavazos [address] [place] [phone] PCP - General 12/21/21 Rebecca Buck MD [address] [facility] [address] [place] [address] Surgeon Urology 06/25/23 Boiler Service Technician Relationship Specialty Start Date End Date Carlos Cavazos [address] [facility] [address] [place] [address] PCP - General 12/21/21 Rebecca Buck MD [address] [facility] 3 [place] [address] Surgeon Urology 06/25/23 Team Status: Inactive Member Role Status Dates Dr. Monika Staley MD Primary Care Provider Active Start: March 13, 2024 End: March 13, 2024 [facility] Attending Provider Active Start: March 13, 2024 [...] March 17, 2024 End: March 17, 2024 [facility] Attending Provider Active Start: March 17, 2024 End: March 17, 2024 Team Status: Inactive Member Role Status Dates Dr. Monika Staley MD Primary Care Provider Active Start: March 18, 2024 End: March 18, 2024 [facility] Attending Provider Active Start: March 18, 2024 [...] March 20, 2024 End: March 20, 2024 [facility] Attending Provider Active Start: March 20, 2024 [...] March 27, 2024 End: March 27, 2024 [facility] Attending Provider Active Start: March 27, 2024 [...] Care Provider Active Start: July 07, 2024 [facility] Attending Provider Active Start: July 07, 2024 [...] Rosanne Hoff RN)1926 (Given - Provider: Lisa Ashby, RN) 1024 (Given - Provider: Fabi Subramanian, RN)1547 (Given - Provider: Cliff Isidro RN)2100 (Due) bumetanide (BUMEX) tablet 2 mg 2 mg, Oral, DAILY, First dose on Sun10/21/21 at 0900, Until Discontinued 910 (Given - Provider: Rosanne Hoff RN) 0816 (Given - Provider: Rosanne Hoff RN) 102 [...] RN)2034 (New Bag - Provider: Katlin Julio RN)210 (Stopped - Provider: Katlin Julio RN) 0816 (New Bag - Provider: Rosanne Hoff RN)0953 (Stopped - Provider: Rosanne Hoff RN)2055 (New Bag - Provider: Lisa Ashby, AYUSH)214 (Stopped - Provider: Lisa Ashby, AYUSH) 1026 (New Bag - Provider: Fabi Subramanian, AYUSH)1150 (Stopped - Provider: Fabi Subramanian, RN)2100 (Due) potassium chloride (KLOR-CON M) extended [...] 1025 (Given - Provider: Fabi Subramanian, RN) sodium [...] Ashby RN) 1027 (Given - Provider: Fabi Subramanian, AYUSH)2100 (Due) warfarin (COUMADIN) tablet 7.5 mg (COMPLETED) 7.5 mg, Oral, ONCE Warfarin, 1 dose, On Windy 10/27/21 at 1800, Indication of Use: Treatment-DVT/PE, History of DVT/PE (indefinite), What is the patient's goal INR? 2.0 - 3.0, Review INR prior to administration. Hazardous med- See facility policy for handling/disposal 1810 (Given - Provider: Rosanne Hoff RN) warfarin (COUMADIN) tablet 7.5 mg 7.5 mg, Oral, ONCE Warfarin, 1 dose, On [facility] 10/29/21 at 1800, Indication of Use: [...] Oral, DAILY PRN, Starting on Sun10/21/21 at 035, Until Discontinued, Constipation, First line therapy for [...] mEq, Oral, PRN, Starting on Sun10/21/21 at 035, Until Discontinued, Potassium Replacement, May give alternative [...] BE BASED ON THE PRIMARY CLINICAL RECORDS. [facility]. provides no warranty or guarantee of the accuracy or completeness of information in this document.
[2024-12-29 09:07] LABS: KEPPRA (LEVETIRACETAM) 33.3 ug/mL (10.0-40.0)
== END ==
LOC: OLS.SANC 05:00
PROVIDERS: PCP General Practice
DX: Z79.899 Other long term (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 (principal)
CPT/HCPCS: 36415; 80177

== ENCOUNTER → 2024-12-29 | Outpatient (REF) | payer MEDICARE, MEDICAID, SELFPAY ==
[2024-12-29 08:53] LABS: Prothrombin Time (Protime)PT. 34.0 SECONDS (11.7-14.9)
[2024-12-31 17:08] LABS: KEPPRA (LEVETIRACETAM) 31.8 ug/mL (10.0-40.0)
== END ==
LOC: OLS.SANC 05:00
PROVIDERS: PCP General Practice; Visit Provider Internal Medicine
DX: I50.9 Heart failure, unspecified (principal); D64.9 Anemia, unspecified; G93.89 Other specified disorders of brain; Z79.01 Long term (current) use of 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
CPT/HCPCS: 36415; 80177; 85610

== ENCOUNTER → 2025-01-01 | Outpatient (REF) | payer MEDICARE, MEDICAID, SELFPAY ==
--- OUTSIDE RECORDS SUMMARY | 2025-01-01 04:03 | XMS RPT_ITS | CCD ---
Author Organization [facility] Care Team Providers Care Wigs Salesperson Name Role Phone Mateus Burris Primary Care Provider [phone] Monika Staley Unavailable Unavailable Leonor, Maddy L [...] Provider Monika Staley MD Primary Care Provider [phone] Carlos Cavazos Primary Care Unavailable Carlos Cavazos [...] Attending Unavailable Kenny, Carlos Primary Care Provider [phone] Quinn VALLADARES, Rebecca L Unavailable [phone] Quinn VALLADARES, Rebecca L Unavailable REBECCA BUCK Attending Unavailable REBECCA BUCK Referring Unavailable CARLOS CAVAZOS Primary Care Unavailable REBECCA BUCK Attending Unavailable KENNY, CARLOS Primary Care Unavailable REBECCA BUCK Attending Unavailable KENNY, CARLOS Primary Care Unavailable Luís VALLADARES, Dr. Monika Horner Primary Care Provider [facility] Attending Provider [phone] Carlos Nelson Attending Provider Jonh Pascual MD, [...] Provider Carlos Nelson Attending Provider Unavailab le Mukkamalla Karon NOVAK Referring Unavail able Mukkamalla OLSKaron Attending Unavail [...] Luís, Shiela Primary Care Unavailable [facility] [place] Attending Unavai lable Luís, Shiela Primary Care [...] Attending Unavailable Luís, Shiela Primary Care Unavailable [facility] [place] Attending Unavai lable Luís, Shiela Primary Care Unavailable Crisostomo OLS, Babbaljeet Attending Unavailable Luís, Shiela Primary Care Unavailable [facility] [place] Attending Unavai lable Luís, Shiela Primary Care [...] Luís, Shiela Primary Care Unavailable [facility] [place] Attending Unavai lable Luís, Shiela Primary Care Unavailable Katsaros OLS, Carlos Attending Unavailable Luís, Shiela Primary Care Unavailable Katsaros OLS, Peter Attending Unavailable Luís, Shiela Primary Care Unavailable [facility] [place] Attending Unavai lable Luís, Shiela Primary Care Unavailable Katsaros OLS, Peter Attending Unavailable Luís, Shiela Primary Care Unavailable [facility] [place] Attending Unavai lable Luís, Shiela Primary Care Unavailable Katsaros OLS, Carlos Attending Unavailable Luís, Shiela Primary Care Unavailable Mukkamalla OLSKaron Attending Unavail able Luís, Shiela Primary Care Unavailable [facility] [place] Attending Unavai lable Luís, Shiela Primary Care Unavailable [facility] [place] Attending Unavai lable Luís, Shiela Primary Care Unavailable Crisostomo OLSKvng Attending Unavailable Luís, Shiela Primary Care Unavailable Katsaros OLS, Carlos Attending Unavailable Luís, Shiela Primary Care Unavailable Katsaros OLS, Peter Attending Unavailable Luís, Shiela Primary Care Unavailable [facility] [place] Attending Unavai lable Luís, Shiela Primary Care Unavailable Luís, Shiela Primary Care Unavailable [facility] [place] Attending Unavai lable Crisostomo OLSKvng Referring Unavailable Crisostomo OLSKvng Attending Unavailable Luís, Shiela Primary Care Unavailable Luís, Shiela Primary Care Unavailable [facility] [place] Attending Unavai lable Crisostomo OLS, Kvng Attending Unavailable Luís, Shiela Primary Care Unavailable Luís, Shiela Primary Care Unavailable [facility] [place] Attending Unavai lable Katsaros SCARLET, Carlos Attending Unavailable Luís, Shiela Primary Care Unavailable [facility] [place] Attending Unavai lable Luís, Shiela Primary Care Unavailable Katsaros SCARLET, Carlos Attending Unavailable Luís, Shiela Primary Care Unavailable [place] OLSKaron Referring Unavail able Mukkamalla OLS, Karon Attending [...] Luís, Shiela Primary Care Unavailable [facility] [place] Attending Tricia denise Luís, Shiela Primary Care [...] Attending Unavailable Luís, Shiela Primary Care Unavailable [facility] [place] Attending Tricia bustamantele Luís, Shiela Primary Care Unavailable Katsaros OLS, Peter Attending Unavailable Luís, Shiela Primary Care Unavailable Crisostomo OLS, Avisjeet Attending Unavailable Luís, Shiela Primary Care Unavailable Crisostomo OLS, Avisjeet Attending Unavailable Luís, Shiela Primary Care Unavailable Crisostomo OLS, Elizabethet Referring Unavailable Crisostomo OLS, Elizabethet Attending Unavailable [...] 3 Rash, Hives, Other: See Comments, Other [facility] Work Phone: (1 source) Latex Drug Allergy 0 Rash [facility] (8 sources) Cortisone Drug Allergy 2 [facility] (7 sources) Latex Allergy to substance 0 Rash [facility] Medications Current Medications Medication Drug Class(es) Dates Sig (Normalized) Sig (Original) Acetaminophen (10 sources) Start: 10-21-2021 acetaminophen (TYLENOL) tablet 650 mg Start: 09-14-2021 acetaminophen (TYLENOL) 325 MG tablet 650 mg every 6 hours as needed 0 09/14/2021 Active take 2 tablets by mo [facility] every eight hours acetaminophen (TYLENOL) [...] Start: 11-01-2021 take 1 capsule by mo [facility] once daily tamsulosin (FLOMAX) 0.4 MG [...] on above: Take 1 capsule by mo [facility] three times daily. Complete Multi-Vitamin CHEW [...] Active docusate sodium 50 mg / sennosides, senior living 8.6 mg oral tablet (1 source) Start: [...] Units subcutaneously with meals and at bedtime. Thai Panax Ginseng 100 MG CAPS (8 sources) Thai Panax Ginseng 100 MG CAPS Quantity: 0 Refills: 0 Ordered: 06-Nov-2019 DO Active Thai Panax Ginseng 100 MG Oral Capsule (4 sources) Thai Panax Ginseng 100 MG Oral Capsule Refills: 0 Active Thai Panax Gin mayuri 100 MG Oral Capsule Refills: 0 DO Active Thai Panax Ginseng 100 MG Oral Capsule (2 sources) Thai Panax Gin mayuri 100 MG Oral Capsule [...] three times daily as needed. 60 tablet 10/09/2012 Active Comment on above: Take 1 [...] once daily. Pentoxifylline (1 source) Blood Viscosity Tools Developer PENTOXIFYLLINE ORAL Take by mouth. 0 Active Comment on above: Take by mouth. petrolatum 0.41 mg/mg topical ointment (1 source) Start : 08-20 white petrolatum (AQUAPHOR) 41 % topical ointment Apply to affected area once daily. 0 08/20/2021 Active Comment on above: Apply to affected ar ea once daily. polyethylene glycol 3350 19799 mg powder for oral solution (1 source) [...] dementia, and amnestic and other cognitive disorders (4 sources) Alzheimer's disease, unspecified; Translations: [Dementia in other diseases classified elsewhere without behavioral disturbance] Onset: 10-21-2021 Chronic Disorders of lipid metabolism (14 sources) Hyperlipidemia; Translations: [Hyperlipidemia, unspecified] Onset: 10-05-2017 [...] epilepticus] Onset: 05-31-2021 06-17-2021 Chronic Essential hypertension (1 source) Essential hypertension; Translations: [Essential (primary) hypertension] Onset: [...] unspecified] Onset: 03-10-2015 03-10-2015 Chronic Nutritional deficiencies (15 sources) Malnutrition (calorie); Translations: [Moderate protein-calorie malnutrition] Onset: 10-21-2021 Chronic Other aftercare (4 sources) 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; Translations: [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] Onset: 10-21-2021 Episodic Other aftercare (1 source) Drug therapy finding; Translations: [alf (current) use of anticoagulants] Episodic Other circulatory [...] Onset: 10-21-2021 Chronic Other nervous system disorders (1 source) Encephalopathy, unspecified; Translations: [Encephalopathy, unspecified] Onset: 02-08-2024 Chronic Other nervous system disorders (1 source) [...] normal limits.; Respiratory failure; insufficiency; arrest (adult) (1 source) Ventilator finding; Translations: [Dependence on respirator [ventilator] [...] Onset: 10-31-2021 Episodic Fluid and electrolyte disorders (3 sources) Hypernatremia; Translations: [Hyperosmolality and hypernatremia] Onset: 06-14-2021 06-17-2021 Episodic Malaise and fatigue (5 sources) Fatigue; Translations: [Other fatigue] Onset: 03-10-2015 03-10-2015 Episodic Mycoses (2 sources) Tinea unguium; Translations: [Tinea unguium] Onset: 10-21-2021 Episodic Open wounds of extremities (7 sources) Injury of left leg; Translations: [Unspecified open wound, left lower leg, initial encounter] Onset: 05-19-2019 02-16-2022 Episodic Other aftercare (2 sources) Other retirement (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; Translations: [Other meterman (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] Onset: 06-02-2024 Episodic Other [...] Test Name Value Interpretation Reference Range Facility KEPPRA (LEVETIRACETAM)on KEPPRA 33.3 ug/mL Normal 10.0-40.0 [facility] Comment on above: Order Comment: 411.1 Result Comment: Perf ormed at: - [facility] [id number] Director: Alpesh Vázquez MD, Phone: [phone] Performed By: #### L 3310.0000 ####[facility] [address] [place], [address] Prothrombin Time w/INRon INR Coag (PPP) [Relative time] 3.3 {INR} Normal [facility] Comment on above: Order Comment: 411-1 Performed By: #### L 300.3900 ####[facility] [address] [place], [address] PT Coag (PPP) [Time] 34.0 s High 11.7-14.9 [facility] Comment on above: Order Comment: 411-1 Performed By: #### L 300.3900 ####[facility] [address] [place], [address] Prothrombin Time w/INRon INR Coag (PPP) [Relative time] 2.8 {INR} Normal [facility] Comment on above: Order Comment: 411.1 Performed By: #### L 300.3900 ####[facility] [address] [place], [address] PT Coag (PPP) [Time] 30.0 s High 11.7-14.9 [facility] Comment on above: Order Comment: 411.1 Performed By: #### L 300.3900 ####[facility] [address] [place], [address] Basic Metabolic Profile (BMP )on 12-24-2024 BUN/CRE 19.2 RATIO Normal 10-20 [facility] Comment on above: Order Comment: 411-1 Performed By: #### L 500.2500, L100.0500 ####[facility] [address] [place], [address] Calcium [Mass/Vol] 8.8 mg/dL Normal 7.6-11.0 [facility] Comment on above: Order Comment: 411-1 Performed By: #### L 500.2500, L100.0500 ####[facility] [address] [place], [address] Chloride [Moles/Vol] 103 mmol/L Normal 98-108 [facility] Comment on above: Order Comment: 411-1 Performed By: #### L 500.2500, L100.0500 ####[facility] [address] [place], [address] CO2 [Moles/Vol] 23.7 mmol/L Normal 21.0-32.0 [facility] Comment on above: Order Comment: 411-1 Performed By: #### L 500.2500, L100.0500 ####[facility] [address] [place], [address] Creatinine [Mass/Vol] 0.82 mg/dL Normal 0.70-1.20 [facility] Comment on above: Order Comment: 411-1 Performed By: #### L 500.2500, L100.0500 ####[facility] [address] [place], [address] GAP 13 Normal 5-15 [facility] Comment on above: Order Comment: 411-1 Performed By: #### L 500.2500, L100.0500 ####[facility] [address] [place], [address] GFR/1.73 sq M.predicted among non-blacks MDRD (S/P/Bld) [Vol rate/Area] 93 mL/min/{1.73_m2} Normal >60 [facility] Comment on above: Order Comment: 411-1 Result Comment: mL/m in/1.73m2 CKD-EPI Creatinine Equation (2020) Performed By: #### L 500.2500, L100.0500 ####[facility] [address] [place], [address] Glucose [Mass/Vol] 88 mg/dL Normal 70-99 [facility] Comment on above: Order Comment: 411-1 Performed By: #### L 500.2500, L100.0500 ####[facility] [address] [place], [address] Potassium [Moles/Vol] 4.2 mmol/L Normal 3.3-5.1 [facility] Comment on above: Order Comment: 411-1 Performed By: #### L 500.2500, L100.0500 ####[facility] [address] [place], [address] Sodium [Moles/Vol] 139 mmol/L Normal 133-145 [facility] Comment on above: Order Comment: 411-1 Performed By: #### L 500.2500, L100.0500 ####[facility] [address] [place], [address] Urea nitrogen [Mass/Vol] 16 mg/dL Normal 4-19 [facility] Comment on above: Order Comment: 411-1 Performed By: #### L 500.2500, L100.0500 ####[facility] [address] [place], [address] CBC-Complete Blood Cnt No Di ffon 12-24-2024 Erythrocyte distribution width (RBC) [Ratio] 15.4 % High 11.6-14.6 [facility] Comment on above: Order Comment: 411-1 Performed By: #### L 500.2500, L100.0500 ####[facility] [address] [place], [address] Hematocrit (Bld) [Volume fraction] 39.8 % Low 40-54 [facility] Comment on above: Order Comment: 411-1 Performed By: #### L 500.2500, L100.0500 ####[facility] [address] [place], [address] Hemoglobin (Bld) [Mass/Vol] 12.4 g/dL Low 13.0-16.5 [facility] Comment on above: Order Comment: 411-1 Performed By: #### L 500.2500, L100.0500 ####[facility] [address] [place], [address] MCH (RBC) [Entitic mass] 26.6 pg Low 27.0-32.0 [facility] Comment on above: Order Comment: 411-1 Performed By: #### L 500.2500, L100.0500 ####[facility] [address] [place], [address] MCHC (RBC) [Mass/Vol] 31.2 g/dL Low 32-36 [facility] Comment on above: Order Comment: 411-1 Performed By: #### L 500.2500, L100.0500 ####[facility] [address] [place], [address] MCV (RBC) [Entitic vol] 85.4 fL Normal 80-94 [facility] Comment on above: Order Comment: 411-1 Performed By: #### L 500.2500, L100.0500 ####[facility] [address] [place], [address] Platelet mean volume (Bld) [Entitic vol] 10.4 fL Normal 6.2-12.0 [facility] Comment on above: Order Comment: 411-1 Performed By: #### L 500.2500, L100.0500 ####[facility] [address] [place], [address] Platelets (Bld) [#/Vol] 290 10*3/uL Normal 150-450 [facility] Comment on above: Order Comment: 411-1 Performed By: #### L 500.2500, L100.0500 ####[facility] [address] [place], [address] RBC (Bld) [#/Vol] 4.66 10*6/uL Normal 4.6-6.2 [facility] Comment on above: Order Comment: 411-1 Performed By: #### L 500.2500, L100.0500 ####[facility] [address] [place], [address] RDW SD 48.1 fl High 35.1-43.9 [facility] Comment on above: Order Comment: 411-1 Performed By: #### L 500.2500, L100.0500 ####[facility] [address] [place], [address] WBC (Bld) [#/Vol] 16.6 10*3/uL High 4.4-11.0 [facility] Comment on above: Order Comment: 411-1 Performed By: #### L 500.2500, L100.0500 ####[facility] [address] [place], [address] Prothrombin Time w/INRon INR Coag (PPP) [Relative time] 2.6 {INR} Normal [facility] Comment on above: Order Comment: 411.1 Performed By: #### L 300.3900 ####[facility] [address] [place], [address] PT Coag (PPP) [Time] 28.8 s High 11.7-14.9 [facility] Comment on above: Order Comment: 411.1 Performed By: #### L 300.3900 ####[facility] [address] [place], [address] Prothrombin Time w/INRon INR Coag (PPP) [Relative time] 2.4 {INR} Normal [facility] Comment on above: Order Comment: 411.1 Performed By: #### L 300.3900 ####[facility] [address] [place], [address] PT Coag (PPP) [Time] 26.7 s High 11.7-14.9 [facility] Comment on above: Order Comment: 411.1 Performed By: #### L 300.3900 ####[facility] [address] [place], [address] Prothrombin Time w/INRon INR Coag (PPP) [Relative time] 2.3 {INR} Normal [facility] Comment on above: Order Comment: 411.1 Performed By: #### L 300.3900 ####[facility] [address] [place], [address] PT Coag (PPP) [Time] 25.7 s High 11.7-14.9 [facility] Comment on above: Order Comment: 411.1 Performed By: #### L 300.3900 ####[facility] [address] [place], [address] Prothrombin Time w/INRon INR Coag (PPP) [Relative time] 2.2 {INR} Normal [facility] Comment on above: Order Comment: 411-1 Performed By: #### L 300.3900 ####[facility] [address] [place], [address] PT Coag (PPP) [Time] 24.7 s High 11.7-14.9 [facility] Comment on above: Order Comment: 411-1 Performed By: #### L 300.3900 ####[facility] [address] [place], [address] Prothrombin Time w/INRon INR Coag (PPP) [Relative time] 2.2 {INR} Normal [facility] Comment on above: Order Comment: 411.1 Performed By: #### L 300.3900 ####[facility] [address] [place], [address] PT Coag (PPP) [Time] 25.0 s High 11.7-14.9 [facility] Comment on above: Order Comment: 411.1 Performed By: #### L 300.3900 ####[facility] [address] [place], [address] Prothrombin Time w/INRon INR Coag (PPP) [Relative time] 2.3 {INR} Normal [facility] Comment on above: Order Comment: 411.1 Performed By: #### L 300.3900 ####[facility] [address] [place], [address] PT Coag (PPP) [Time] 25.9 s High 11.7-14.9 [facility] Comment on above: Order Comment: 411.1 Performed By: #### L 300.3900 ####[facility] [address] [place], [address] Prothrombin Time w/INRon INR Coag (PPP) [Relative time] 2.5 {INR} Normal [facility] Comment on above: Order Comment: 411.1 Performed By: #### L 300.3900 ####[facility] [address] [place], [address] PT Coag (PPP) [Time] 27.3 s High 11.7-14.9 [facility] Comment on above: Order Comment: 411.1 Performed By: #### L 300.3900 ####[facility] [address] [place], [address] Prothrombin Time w/INRon INR Coag (PPP) [Relative time] 2.3 {INR} Normal [facility] Comment on above: Order Comment: 411-1 Performed By: #### L 300.3900 ####[facility] [address] [place], [address] PT Coag (PPP) [Time] 26.0 s High 11.7-14.9 [facility] Comment on above: Order Comment: 411-1 Performed By: #### L 300.3900 ####[facility] [address] [place], [address] Prothrombin Time w/INRon INR Coag (PPP) [Relative time] 3.1 {INR} Normal [facility] Comment on above: Order Comment: 411-1 Performed By: #### L 300.3900 ####[facility] [address] [place], [address] PT Coag (PPP) [Time] 32.8 s High 11.7-14.9 [facility] Comment on above: Order Comment: 411-1 Performed By: #### L 300.3900 ####[facility] [address] [place], [address] Prothrombin Time w/INRon INR Coag (PPP) [Relative time] 3.3 {INR} Normal [facility] Comment on above: Order Comment: 411.1 Performed By: #### L 300.3900 ####[facility] [address] [place], [address] PT Coag (PPP) [Time] 34.3 s High 11.7-14.9 [facility] Comment on above: Order Comment: 411.1 Performed By: #### L 300.3900 ####[facility] [address] [place], [address] Prothrombin Time w/INRon INR Coag (PPP) [Relative time] 2.8 {INR} Normal [facility] Comment on above: Order Comment: 411.2 Performed By: #### L 300.3900 ####[facility] [address] [place], [address] PT Coag (PPP) [Time] 30.0 s High 11.7-14.9 [facility] Comment on above: Order Comment: 411.2 Performed By: #### L 300.3900 ####[facility] [address] [place], [address] Prothrombin Time w/INRon INR Coag (PPP) [Relative time] 3.0 {INR} Normal [facility] Comment on above: Order Comment: 411.2 Performed By: #### L 300.3900 ####[facility] [address] [place], [address] PT Coag (PPP) [Time] 32.0 s High 11.7-14.9 [facility] Comment on above: Order Comment: 411.2 Performed By: #### L 300.3900 ####[facility] [address] [place], [address] Prothrombin Time w/INRon INR Coag (PPP) [Relative time] 2.9 {INR} Normal [facility] Comment on above: Order Comment: 411.2 Performed By: #### L 300.3900 ####[facility] [address] [place], [address] PT Coag (PPP) [Time] 30.7 s High 11.7-14.9 [facility] Comment on above: Order Comment: 411.2 Performed By: #### L 300.3900 ####[facility] [address] [place], [address] Prothrombin Time w/INRon INR Coag (PPP) [Relative time] 2.2 {INR} Normal [facility] Comment on above: Order Comment: 411.2 Performed By: #### L 300.3900 ####[facility] [address] [place], [address] PT Coag (PPP) [Time] 24.7 s High 11.7-14.9 [facility] Comment on above: Order Comment: 411.2 Performed By: #### L 300.3900 ####[facility] [address] [place], [address] Prothrombin Time w/INRon INR Coag (PPP) [Relative time] 2.6 {INR} Normal [facility] Comment on above: Order Comment: 411.2 Performed By: #### L 300.3900 ####[facility] [address] [place], [address] PT Coag (PPP) [Time] 28.7 s High 11.7-14.9 [facility] Comment on above: Order Comment: 411.2 Performed By: #### L 300.3900 ####[facility] [address] [place], [address] Prothrombin Time w/INRon INR Coag (PPP) [Relative time] 3.1 {INR} Normal [facility] Comment on above: Order Comment: 411.2 Performed By: #### L 300.3900 ####[facility] [address] [place], [address] PT Coag (PPP) [Time] 33.0 s High 11.7-14.9 [facility] Comment on above: Order Comment: 411.2 Performed By: #### L 300.3900 ####[facility] [address] [place], [address] Prothrombin Time w/INRon INR Coag (PPP) [Relative time] 3.0 {INR} Normal [facility] Comment on above: Order Comment: 411-2 Performed By: #### L 300.3900 ####[facility] [address] [place], [address] PT Coag (PPP) [Time] 31.4 s High 11.7-14.9 [facility] Comment on above: Order Comment: 411-2 Performed By: #### L 300.3900 ####[facility] [address] [place], [place], [id number] International normalized rat io (INR) calculationOrdered By: Karon Corrales on 10-30-2024 INR Coag (Bld) [Relative time] 2.4 {INR} [facility] Prothrombin Time w/INRon INR Coag (PPP) [Relative time] 2.4 {INR} Normal [facility] Comment on above: Performed By: #### L 300.3900 ####[facility] [address] [place], [place], [phone] PT Coag (PPP) [Time] 26.3 s High 11.7-14.9 [facility] Comment on above: Performed By: #### L 300.3900 ####[facility] [address] [place], [place], [phone] Prothrombin timeOrdered By: Karon Corrales on 10-30-2024 PT Coag (PPP) [Time] 26.3 s High 11.7-14.9 [facility] International normalized rat io (INR) calculationOrdered By: Karon Corrales on 10-27-2024 INR Coag (Bld) [Relative time] 2.2 {INR} [facility] Prothrombin Time w/INRon INR Coag (PPP) [Relative time] 2.2 {INR} Normal [facility] Comment on above: Order Comment: 411.2 Performed By: #### L 300.3900 ####[facility] [address] [place], [place], [address] Prothrombin timeOrdered By: Karon Corrales on 10-27-2024 PT Coag (PPP) [Time] 24.5 s High 11.7-14.9 [facility] Comment on above: Order Comment: 411.2 Performed By: #### L 300.3900 ####[facility] [address] [place], [place], [phone] International normalized rat io (INR) calculationOrdered By: Karon Corrales on 10-23-2024 INR Coag (Bld) [Relative time] 2.5 {INR} [facility] Prothrombin Time w/INRon INR Coag (PPP) [Relative time] 2.5 {INR} Normal [facility] Comment on above: Order Comment: 411.2 Performed By: #### L 300.3900 ####[facility] [address] [place], [address] PT Coag (PPP) [Time] 27.9 s High 11.7-14.9 [facility] Comment on above: Order Comment: 411.2 Performed By: #### L 300.3900 ####[facility] [address] [place], [address] Prothrombin timeOrdered By: Karon Corrales on 10-23-2024 PT Coag (PPP) [Time] 27.9 s High 11.7-14.9 [facility] International normalized rat io (INR) calculationOrdered By: Karon Corrales on 10-20-2024 INR Coag (Bld) [Relative time] 3.1 {INR} [facility] Prothrombin Time w/INRon INR Coag (PPP) [Relative time] 3.1 {INR} Normal [facility] Comment on above: Order Comment: 411.2 Performed By: #### L 300.3900 ####[facility] [address] [place], [address] PT Coag (PPP) [Time] 32.8 s High 11.7-14.9 [facility] Comment on above: Order Comment: 411.2 Performed By: #### L 300.3900 ####[facility] [address] [place], [address] Prothrombin timeOrdered By: Karon Corrales on 10-20-2024 PT Coag (PPP) [Time] 32.8 s High 11.7-14.9 [facility] International normalized rat io (INR) calculationOrdered By: Karon Corrales on 10-16-2024 INR Coag (Bld) [Relative time] 2.8 {INR} [facility] Prothrombin Time w/INRon INR Coag (PPP) [Relative time] 2.8 {INR} Normal [facility] Comment on above: Order Comment: 411.2 Performed By: #### L 300.3900 ####[facility] [address] [facility] [address] PT Coag (PPP) [Time] 30.4 s High 11.7-14.9 [facility] Comment on above: Order Comment: 411.2 Performed By: #### L 300.3900 ####[facility] [address] [facility] [address] Prothrombin timeOrdered By: Karon Corrales on 10-16-2024 PT Coag (PPP) [Time] 30.4 s High 11.7-14.9 [facility] International normalized rat io (INR) calculationOrdered By: Carlos Cavazos on 10-13-2024 INR Coag (Bld) [Relative time] 1.9 {INR} [facility] Prothrombin Time w/INRon INR Coag (PPP) [Relative time] 1.9 {INR} Normal [facility] Comment on above: Order Comment: 411-2 Performed By: #### L 300.3900 ####[facility] [address] [facility] [address] PT Coag (PPP) [Time] 22.4 s High 11.7-14.9 [facility] Comment on above: Order Comment: 411-2 Performed By: #### L 300.3900 ####[facility] [address] [facility] [phone] Prothrombin timeOrdered By: Carlos Cavazos on 10-13-2024 PT Coag (PPP) [Time] 22.4 s High 11.7-14.9 [facility] International normalized rat io (INR) calculationOrdered By: Karon Corrales on 10-09-2024 INR Coag (Bld) [Relative time] 3.0 {INR} [facility] Prothrombin Time w/INRon INR Coag (PPP) [Relative time] 3.0 {INR} Normal [facility] Comment on above: Order Comment: 411.2 Performed By: #### L 300.3900 ####[facility] [address] [place], [address] Prothrombin timeOrdered By: Karon Corrales on 10-09-2024 PT Coag (PPP) [Time] 31.8 s High 11.7-14.9 [facility] Comment on above: Order Comment: 411.2 Performed By: #### L 300.3900 ####[facility] [address] [place], [place], [id number] International normalized rat io (INR) calculationOrdered By: Carlos Cavazos on 10-06-2024 INR Coag (Bld) [Relative time] 2.7 {INR} [facility] Prothrombin Time w/INRon INR Coag (PPP) [Relative time] 2.7 {INR} Normal [facility] Comment on above: Order Comment: 411-2 Performed By: #### L 300.3900 ####[facility] [address] [place], [place], [phone] PT Coag (PPP) [Time] 29.6 s High 11.7-14.9 [facility] Comment on above: Order Comment: 411-2 Performed By: #### L 300.3900 ####[facility] [address] [place], [address] Prothrombin timeOrdered By: Carlos Cavazos on 10-06-2024 PT Coag (PPP) [Time] 29.6 s High 11.7-14.9 [facility] International normalized rat io (INR) calculationOrdered By: Karon Corrales on 10-02-2024 INR Coag (Bld) [Relative time] 2.3 {INR} [facility] Prothrombin Time w/INRon INR Coag (PPP) [Relative time] 2.3 {INR} Normal [facility] Comment on above: Order Comment: 411.2 Performed By: #### L 300.3900 ####[facility] [address] [facility] [address] PT Coag (PPP) [Time] 26.0 s High 11.7-14.9 [facility] Comment on above: Order Comment: 411.2 Performed By: #### L 300.3900 ####[facility] [address] [place], [address] Prothrombin timeOrdered By: Karon Corrales on 10-02-2024 PT Coag (PPP) [Time] 26.0 s High 11.7-14.9 [facility] International normalized rat io (INR) calculationOrdered By: Karon Corrales on 09-30-2024 INR Coag (Bld) [Relative time] 3.1 {INR} [facility] Prothrombin Time w/INRon INR Coag (PPP) [Relative time] 3.1 {INR} Normal [facility] Comment on above: Order Comment: 411.2 Performed By: #### L 300.3900 ####[facility] [address] [facility] [address]) PT Coag (PPP) [Time] 32.6 s High 11.7-14.9 [facility] Comment on above: Order Comment: 411.2 Performed By: #### L 300.3900 ####[facility] [address] [facility] [phone] Prothrombin timeOrdered By: Karon Corrales on 09-30-2024 PT Coag (PPP) [Time] 32.6 s High 11.7-14.9 [facility] International normalized rat io (INR) calculationOrdered By: Karon Corrales on 09-25-2024 INR Coag (Bld) [Relative time] 2.4 {INR} [facility] Prothrombin Time w/INRon INR Coag (PPP) [Relative time] 2.4 {INR} Normal [facility] Comment on above: Order Comment: 411.2 Performed By: #### L 300.3900 ####[facility] [address] [place], [place], [address] Prothrombin timeOrdered By: Karon Corrales on 09-25-2024 PT Coag (PPP) [Time] 26.7 s High 11.7-14.9 [facility] Comment on above: Order Comment: 411.2 Performed By: #### L 300.3900 ####[facility] [address] [place], [place], [address] International normalized rat io (INR) calculationOrdered By: Karon Corrales on 09-22-2024 INR Coag (Bld) [Relative time] 2.5 {INR} [facility] Prothrombin Time w/INRon INR Coag (PPP) [Relative time] 2.5 {INR} Normal [facility] Comment on above: Order Comment: 411.2 Performed By: #### L 300.3900 ####[facility] [address] [place], [place], [address] Prothrombin timeOrdered By: Karon Corrales on 09-22-2024 PT Coag (PPP) [Time] 27.4 s High 11.7-14.9 [facility] Comment on above: Order Comment: 411.2 Performed By: #### L 300.3900 ####[facility] [address] [place], [place], [phone] International normalized rat io (INR) calculationOrdered By: Karon Corrales on 09-18-2024 INR Coag (Bld) [Relative time] 2.2 {INR} [facility] Prothrombin Time w/INRon INR Coag (PPP) [Relative time] 2.2 {INR} Normal [facility] Comment on above: Order Comment: 411.2 Performed By: #### L 300.3900 ####[facility] [address] [place], [place], [address] PT Coag (PPP) [Time] 25.1 s High 11.7-14.9 [facility] Comment on above: Order Comment: 411.2 Performed By: #### L 300.3900 ####[facility] [address] [place], [place], [address] Prothrombin timeOrdered By: Karon Corrales on 09-18-2024 PT Coag (PPP) [Time] 25.1 s High 11.7-14.9 [facility] International normalized rat io (INR) calculationOrdered By: Carlos Cavazos on 09-15-2024 INR Coag (Bld) [Relative time] 2.4 {INR} [facility] Prothrombin Time w/INRon INR Coag (PPP) [Relative time] 2.4 {INR} Normal [facility] Comment on above: Order Comment: 411-2 Performed By: #### L 300.3900 ####[facility] [address] [place], [place], [address] Prothrombin timeOrdered By: Carlos Cavazos on 09-15-2024 PT Coag (PPP) [Time] 26.3 s High 11.7-14.9 [facility] Comment on above: Order Comment: 411-2 Performed By: #### L 300.3900 ####[facility] [address] [place], [place], [phone]) International normalized rat io (INR) calculationOrdered By: Karon Corrales on 09-11-2024 INR Coag (Bld) [Relative time] 2.0 {INR} [facility] Prothrombin Time w/INRon INR Coag (PPP) [Relative time] 2.0 {INR} Normal [facility] Comment on above: Order Comment: 411.2 Performed By: #### L 300.3900 ####[facility] [address] [place], [place], [phone] PT Coag (PPP) [Time] 22.9 s High 11.7-14.9 [facility] Comment on above: Order Comment: 411.2 Performed By: #### L 300.3900 ####[facility] [address] [place], [place], [phone]) Prothrombin timeOrdered By: Karon Corrales on 09-11-2024 PT Coag (PPP) [Time] 22.9 s High 11.7-14.9 [facility] International normalized rat io (INR) calculationOrdered By: Karon Corrales on 09-08-2024 INR Coag (Bld) [Relative time] 2.0 {INR} [facility] Prothrombin Time w/INRon INR Coag (PPP) [Relative time] 2.0 {INR} Normal [facility] Comment on above: Order Comment: 411.2 Performed By: #### L 300.3900 ####[facility] [address] [place], [address] PT Coag (PPP) [Time] 22.8 s High 11.7-14.9 [facility] Comment on above: Order Comment: 411.2 Performed By: #### L 300.3900 ####[facility] [address] [place], [place], [phone](584) Prothrombin timeOrdered By: Karon Corrales on 09-08-2024 PT Coag (PPP) [Time] 22.8 s High 11.7-14.9 [facility] International normalized rat io (INR) calculationOrdered By: Carlos Cavazos on 09-04-2024 INR Coag (Bld) [Relative time] 1.7 {INR} [facility] Prothrombin Time w/INRon INR Coag (PPP) [Relative time] 1.7 {INR} Normal [facility] Comment on above: Order Comment: 411-2 Performed By: #### L 300.3900 ####[facility] [address] [place], [place], [phone] PT Coag (PPP) [Time] 20.8 s High 11.7-14.9 [facility] Comment on above: Order Comment: 411-2 Performed By: #### L 300.3900 ####[facility] [address] [place], [address] Prothrombin timeOrdered By: Carlos Cavazos on 09-04-2024 PT Coag (PPP) [Time] 20.8 s High 11.7-14.9 [facility] International normalized rat io (INR) calculationOrdered By: Carlos Cavazos on 09-01-2024 INR Coag (Bld) [Relative time] 2.9 {INR} [facility] Prothrombin Time w/INRon INR Coag (PPP) [Relative time] 2.9 {INR} Normal [facility] Comment on above: Order Comment: 411-2 Performed By: #### L 300.3900 ####[facility] [address] [place], [place], [phone] PT Coag (PPP) [Time] 30.7 s High 11.7-14.9 [facility] Comment on above: Order Comment: 411-2 Performed By: #### L 300.3900 ####[facility] [address] [place], [place], [phone] Prothrombin timeOrdered By: Carlos Cavazos on 09-01-2024 PT Coag (PPP) [Time] 30.7 s High 11.7-14.9 [facility] International normalized rat io (INR) calculationOrdered By: Carlos Cavazos on 08-28-2024 INR Coag (Bld) [Relative time] 2.4 {INR} [facility] Prothrombin Time w/INRon INR Coag (PPP) [Relative time] 2.4 {INR} Normal [facility] Comment on above: Order Comment: 411-2 Performed By: #### L 300.3900 ####[facility] [address] [place], [address](052) Prothrombin timeOrdered By: Carlos Cavazos on 08-28-2024 PT Coag (PPP) [Time] 26.7 s High 11.7-14.9 [facility] Comment on above: Order Comment: 411-2 Performed By: #### L 300.3900 ####[facility] [address] [place], [place], [phone]) International normalized rat io (INR) calculationOrdered By: Karon Corrales on 08-25-2024 INR Coag (Bld) [Relative time] 1.8 {INR} [facility] Prothrombin Time w/INRon INR Coag (PPP) [Relative time] 1.8 {INR} Normal [facility] Comment on above: Order Comment: 411.2 Performed By: #### L 300.3900 ####[facility] [address] [place], [place], [phone] PT Coag (PPP) [Time] 21.6 s High 11.7-14.9 [facility] Comment on above: Order Comment: 411.2 Performed By: #### L 300.3900 ####[facility] [address] [place], [address](550) Prothrombin timeOrdered By: Karon Corrales on 08-25-2024 PT Coag (PPP) [Time] 21.6 s High 11.7-14.9 [facility] International normalized rat io (INR) calculationOrdered By: Karon Corrales on 08-21-2024 INR Coag (Bld) [Relative time] 1.7 {INR} [facility] PSA, total screeningOrdered By: Karon Corrales on 08-21-2024 Prostate Specific Antigen Screen 0.52 ng/mL 0.02-4.00 [facility] Comment on above: This test was perfor [...] 08-21-2024 PSA,TOT SCREEN 0.52 ng/mL Normal 0.02-4.00 [facility] Comment on above: Order Comment: 411.2 Result Comment: This test was performed using the [employer] tPSAmethod. Measured values of a patient??sample can varydepending on the testing procedure used. PSA valuesdetermined on patient samples by different testingprocedures cannot be used interchangeably. If there is achange in PSA assays while monitoring therapy, sequentialtesting should be performed to confirm baseline values. Performed By: #### L 501.9910, L300.3900 ####[facility] [address] [place], [address] Prothrombin Time w/INRon INR Coag (PPP) [Relative time] 1.7 {INR} Normal [facility] Comment on above: Order Comment: 411.2 Performed By: #### L 501.9910, L300.3900 ####[facility] [address] [place], [address] Prothrombin timeOrdered By: Karon Corrales on 08-21-2024 PT Coag (PPP) [Time] 20.1 s High 11.7-14.9 [facility] Comment on above: Order Comment: 411.2 Performed By: #### L 501.9910, L300.3900 ####[facility] [address] [place], [address] International normalized rat io (INR) calculationOrdered By: Karon Corrales on 08-18-2024 INR Coag (Bld) [Relative time] 3.0 {INR} [facility] Prothrombin Time w/INRon INR Coag (PPP) [Relative time] 3.0 {INR} Normal [facility] Comment on above: Order Comment: 411.2 Performed By: #### L 300.3900 ####[facility] [address] [place], [address] PT Coag (PPP) [Time] 31.4 s High 11.7-14.9 [facility] Comment on above: Order Comment: 411.2 Performed By: #### L 300.3900 ####[facility] [address] [place], [address] Prothrombin timeOrdered By: Karon Corrales on 08-18-2024 PT Coag (PPP) [Time] 31.4 s High 11.7-14.9 [facility] International normalized rat io (INR) calculationOrdered By: Karon Corrales on 08-14-2024 INR Coag (Bld) [Relative time] 2.4 {INR} [facility] Prothrombin Time w/INRon INR Coag (PPP) [Relative time] 2.4 {INR} Normal [facility] Comment on above: Order Comment: 411.2 Performed By: #### L 300.3900 ####[facility] [address] [place], [address] PT Coag (PPP) [Time] 26.6 s High 11.7-14.9 [facility] Comment on above: Order Comment: 411.2 Performed By: #### L 300.3900 ####[facility] [address] [place], [place], [phone] Prothrombin timeOrdered By: Karon Corrales on 08-14-2024 PT Coag (PPP) [Time] 26.6 s High 11.7-14.9 [facility] International normalized rat io (INR) calculationOrdered By: Karon Corrales on 08-11-2024 INR Coag (Bld) [Relative time] 3.1 {INR} [facility] Prothrombin Time w/INRon INR Coag (PPP) [Relative time] 3.1 {INR} Normal [facility] Comment on above: Order Comment: 411.2 Performed By: #### L 300.3900 ####[facility] [address] [place], [place], [phone] PT Coag (PPP) [Time] 32.4 s High 11.7-14.9 [facility] Comment on above: Order Comment: 411.2 Performed By: #### L 300.3900 ####[facility] [address] [place], [place], [phone] Prothrombin timeOrdered By: Karon Corrales on 08-11-2024 PT Coag (PPP) [Time] 32.4 s High 11.7-14.9 [facility] International normalized rat io (INR) calculationOrdered By: Carlos Cavazos on 08-07-2024 INR Coag (Bld) [Relative time] 2.8 {INR} [facility] Prothrombin Time w/INRon INR Coag (PPP) [Relative time] 2.8 {INR} Normal [facility] Comment on above: Order Comment: 411-2 Performed By: #### L 300.3900 ####[facility] [address] [place], [place], [phone](117 PT Coag (PPP) [Time] 30.3 s High 11.7-14.9 [facility] Comment on above: Order Comment: 411-2 Performed By: #### L 300.3900 ####[facility] [address] [place], [address] Prothrombin timeOrdered By: Carlos Cavazos on 08-07-2024 PT Coag (PPP) [Time] 30.3 s High 11.7-14.9 [facility] International normalized rat io (INR) calculationOrdered By: Carlos Cavazos on 08-04-2024 INR Coag (Bld) [Relative time] 1.9 {INR} [facility] Prothrombin Time w/INRon INR Coag (PPP) [Relative time] 1.9 {INR} Normal [facility] Comment on above: Order Comment: 411-2 Performed By: #### L 300.3900 ####[facility] [address] [place], [address] PT Coag (PPP) [Time] 22.1 s High 11.7-14.9 [facility] Comment on above: Order Comment: 411-2 Performed By: #### L 300.3900 ####[facility] [address] [place], [address] Prothrombin timeOrdered By: Carlos Cavazos on 08-04-2024 PT Coag (PPP) [Time] 22.1 s High 11.7-14.9 [facility] International normalized rat io (INR) calculationOrdered By: Karon Corrales on 07-31-2024 INR Coag (Bld) [Relative time] 3.2 {INR} [facility] Prothrombin Time w/INRon INR Coag (PPP) [Relative time] 3.2 {INR} Normal [facility] Comment on above: Order Comment: 411.2 Performed By: #### L 300.3900 ####[facility] [address] [place], [address] PT Coag (PPP) [Time] 33.5 s High 11.7-14.9 [facility] Comment on above: Order Comment: 411.2 Performed By: #### L 300.3900 ####[facility] [address] [place], [place], [phone] Prothrombin timeOrdered By: Karon Corrales on 07-31-2024 PT Coag (PPP) [Time] 33.5 s High 11.7-14.9 [facility] International normalized rat io (INR) calculationOrdered By: Karon Corrales on 07-28-2024 INR Coag (Bld) [Relative time] 2.7 {INR} [facility] Prothrombin Time w/INRon INR Coag (PPP) [Relative time] 2.7 {INR} Normal [facility] Comment on above: Order Comment: 411.2 Performed By: #### L 300.3900 ####[facility] [address] [place], [place], [phone] PT Coag (PPP) [Time] 29.6 s High 11.7-14.9 [facility] Comment on above: Order Comment: 411.2 Performed By: #### L 300.3900 ####[facility] [address] [place], [place], [phone] Prothrombin timeOrdered By: Karon Corrales on 07-28-2024 PT Coag (PPP) [Time] 29.6 s High 11.7-14.9 [facility] International normalized rat io (INR) calculationOrdered By: Carlos Cavazos on 07-25-2024 INR Coag (Bld) [Relative time] 3.0 {INR} [facility] Prothrombin Time w/INRon INR Coag (PPP) [Relative time] 3.0 {INR} Normal [facility] Comment on above: Order Comment: 411-2 Performed By: #### L 300.3900 ####[facility] [address] [place], [address] Prothrombin timeOrdered By: Carlos Cavazos on 07-25-2024 PT Coag (PPP) [Time] 32.1 s High 11.7-14.9 [facility] Comment on above: Order Comment: 411-2 Performed By: #### L 300.3900 ####[facility] [address] [place], [place], [address] International normalized rat io (INR) calculationOrdered By: Karon Corrales on 07-24-2024 INR Coag (Bld) [Relative time] 3.4 {INR} [facility] Prothrombin Time w/INRon INR Coag (PPP) [Relative time] 3.4 {INR} Normal [facility] Comment on above: Order Comment: 411.2 Performed By: #### L 300.3900 ####[facility] [address] [place], [address] Prothrombin timeOrdered By: Karon Corrales on 07-24-2024 PT Coag (PPP) [Time] 35.4 s High 11.7-14.9 [facility] Comment on above: Order Comment: 411.2 Performed By: #### L 300.3900 ####[facility] [address] [place], [place], [id number] International normalized rat io (INR) calculationOrdered By: Karon Corrales on 07-21-2024 INR Coag (Bld) [Relative time] 1.6 {INR} [facility] Prothrombin Time w/INRon INR Coag (PPP) [Relative time] 1.6 {INR} Normal [facility] Comment on above: Order Comment: 411.2 Performed By: #### L 300.3900 ####[facility] [address] [place], [place], [phone] PT Coag (PPP) [Time] 19.6 s High 11.7-14.9 [facility] Comment on above: Order Comment: 411.2 Performed By: #### L 300.3900 ####[facility] [address] [place], [place], [phone] Prothrombin timeOrdered By: Karon Corrales on 07-21-2024 PT Coag (PPP) [Time] 19.6 s High 11.7-14.9 [facility] International normalized rat io (INR) calculationOrdered By: Karon Corrales on 07-17-2024 INR Coag (Bld) [Relative time] 2.9 {INR} [facility] Prothrombin Time w/INRon INR Coag (PPP) [Relative time] 2.9 {INR} Normal [facility] Comment on above: Order Comment: 411.2 Performed By: #### L 300.3900 ####[facility] [address] [place], [address] PT Coag (PPP) [Time] 31.1 s High 11.7-14.9 [facility] Comment on above: Order Comment: 411.2 Performed By: #### L 300.3900 ####[facility] [address] [place], [place], [phone] Prothrombin timeOrdered By: Karon Corrales on 07-17-2024 PT Coag (PPP) [Time] 31.1 s High 11.7-14.9 [facility] International normalized rat io (INR) calculationOrdered By: Carlos Cavazos on 07-14-2024 INR Coag (Bld) [Relative time] 2.5 {INR} [facility] Prothrombin Time w/INRon INR Coag (PPP) [Relative time] 2.5 {INR} Normal [facility] Comment on above: Order Comment: 411-2 Performed By: #### L 300.3900 ####[facility] [address] [place], [place], [phone] PT Coag (PPP) [Time] 27.5 s High 11.7-14.9 [facility] Comment on above: Order Comment: 411-2 Performed By: #### L 300.3900 ####[facility] [address] [place], [address] Prothrombin timeOrdered By: Carlos Cavazos on 07-14-2024 PT Coag (PPP) [Time] 27.5 s High 11.7-14.9 [facility] International normalized rat io (INR) calculationOrdered By: Carlos Cavazos on 07-11-2024 INR Coag (Bld) [Relative time] 2.5 {INR} [facility] Prothrombin Time w/INRon INR Coag (PPP) [Relative time] 2.5 {INR} Normal [facility] Comment on above: Performed By: #### L 300.3900 ####[facility] [address] [place], [address] PT Coag (PPP) [Time] 27.7 s High 11.7-14.9 [facility] Comment on above: Performed By: #### L 300.3900 ####[facility] [address] [place], [address] Prothrombin timeOrdered By: Carlos Cavazos on 07-11-2024 PT Coag (PPP) [Time] 27.7 s High 11.7-14.9 [facility] Prothrombin Time w/INRon INR Normal [facility] Comment on above: Order Comment: 411.2 Result Comment: QNS TUBE NOT FILLED Performed By: #### L 300.3900 ####[facility] [address] [place], [address] PROTIME Normal 11.7-14.9 [facility] Comment on above: Order Comment: 411.2 Result Comment: QNS TUBE NOT FILLED Performed By: #### L 300.3900 ####[facility] [address] [place], [address] International normalized rat io (INR) calculationOrdered By: Kvng Crisostomo on 07-07-2024 INR Coag (Bld) [Relative time] 2.5 {INR} [facility] Prothrombin Time w/INRon INR Coag (PPP) [Relative time] 2.5 {INR} Normal [facility] Comment on above: Order Comment: 411.2 Performed By: #### L 300.3900 ####[facility] [address] [place] [phone] PT Coag (PPP) [Time] 27.2 s High 11.7-14.9 [facility] Comment on above: Order Comment: 411.2 Performed By: #### L 300.3900 ####[facility] [address] [place] [phone] Prothrombin timeOrdered By: Kvng Crisostomo on 07-07-2024 PT Coag (PPP) [Time] 27.2 s High 11.7-14.9 [facility] International normalized rat io (INR) calculationOrdered By: Kvng Crisostomo on 07-03-2024 INR Coag (Bld) [Relative time] 2.5 {INR} [facility] Prothrombin Time w/INRon INR Coag (PPP) [Relative time] 2.5 {INR} Normal [facility] Comment on above: Order Comment: 411.2 Performed By: #### L 300.3900 ####[facility] [address] [place], [address] PT Coag (PPP) [Time] 27.2 s High 11.7-14.9 [facility] Comment on above: Order Comment: 411.2 Performed By: #### L 300.3900 ####[facility] [address] [place], [address] Prothrombin timeOrdered By: Kvng Crisostomo on 07-03-2024 PT Coag (PPP) [Time] 27.2 s High 11.7-14.9 [facility] International normalized rat io (INR) calculationOrdered By: Kvng Crisostomo on 06-30-2024 INR Coag (Bld) [Relative time] 2.4 {INR} [facility] Prothrombin Time w/INRon INR Coag (PPP) [Relative time] 2.4 {INR} Normal [facility] Comment on above: Order Comment: 411.2 Performed By: #### L 300.3900 ####[facility] [address] [place], [address] PT Coag (PPP) [Time] 26.8 s High 11.7-14.9 [facility] Comment on above: Order Comment: 411.2 Performed By: #### L 300.3900 ####[facility] [address] [place], [address] Prothrombin timeOrdered By: Kvng Crisostomo on 06-30-2024 PT Coag (PPP) [Time] 26.8 s High 11.7-14.9 [facility] International normalized rat io (INR) calculationOrdered By: Kvng Crisostomo on 06-26-2024 INR Coag (Bld) [Relative time] 2.5 {INR} [facility] Prothrombin Time w/INRon INR Coag (PPP) [Relative time] 2.5 {INR} Normal [facility] Comment on above: Order Comment: 411.2 Performed By: #### L 300.3900 ####[facility] [address] [place], [address] PT Coag (PPP) [Time] 27.5 s High 11.7-14.9 [facility] Comment on above: Order Comment: 411.2 Performed By: #### L 300.3900 ####[facility] [address] [place], [address] Prothrombin timeOrdered By: Kvng Crisostomo on 06-26-2024 PT Coag (PPP) [Time] 27.5 s High 11.7-14.9 [facility] International normalized rat io (INR) calculationOrdered By: Carlos Cavazos on 06-23-2024 INR Coag (Bld) [Relative time] 2.8 {INR} [facility] Prothrombin Time w/INRon INR Coag (PPP) [Relative time] 2.8 {INR} Normal [facility] Comment on above: Order Comment: 411-2 Performed By: #### L 300.3900 ####[facility] [address] [place], [place], [phone]) PT Coag (PPP) [Time] 29.7 s High 11.7-14.9 [facility] Comment on above: Order Comment: 411-2 Performed By: #### L 300.3900 ####[facility] [address] [place], [phone]) Prothrombin timeOrdered By: Carlos Cavazos on 06-23-2024 PT Coag (PPP) [Time] 29.7 s High 11.7-14.9 [facility] International normalized rat io (INR) calculationOrdered By: Kvng Crisostomo on 06-19-2024 INR Coag (Bld) [Relative time] 2.6 {INR} [facility] Prothrombin Time w/INRon INR Coag (PPP) [Relative time] 2.6 {INR} Normal [facility] Comment on above: Order Comment: 411.2 Performed By: #### L 300.3900 ####[facility] [address] [place], [place], [phone] PT Coag (PPP) [Time] 28.6 s High 11.7-14.9 [facility] Comment on above: Order Comment: 411.2 Performed By: #### L 300.3900 ####[facility] [address] [place], [place], [phone] Prothrombin timeOrdered By: Kvng Crisostomo on 06-19-2024 PT Coag (PPP) [Time] 28.6 s High 11.7-14.9 [facility] International normalized rat io (INR) calculationOrdered By: Kvng Crisostomo on 06-16-2024 INR Coag (Bld) [Relative time] 2.5 {INR} [facility] Prothrombin Time w/INRon INR Coag (PPP) [Relative time] 2.5 {INR} Normal [facility] Comment on above: Order Comment: 411.2 Performed By: #### L 300.3900 ####[facility] [address] [place], [place], [phone](151) PT Coag (PPP) [Time] 27.3 s High 11.7-14.9 [facility] Comment on above: Order Comment: 411.2 Performed By: #### L 300.3900 ####[facility] [address] [place], [place], [phone](532) Prothrombin timeOrdered By: Kvng Crisostoom on 06-16-2024 PT Coag (PPP) [Time] 27.3 s High 11.7-14.9 [facility] International normalized rat io (INR) calculationOrdered By: Kvng Crisostomo on 06-12-2024 INR Coag (Bld) [Relative time] 2.1 {INR} [facility] Prothrombin Time w/INRon INR Coag (PPP) [Relative time] 2.1 {INR} Normal [facility] Comment on above: Order Comment: 411.2 Performed By: #### L 300.3900 ####[facility] [address] [place], [place], [phone]) PT Coag (PPP) [Time] 24.0 s High 11.7-14.9 [facility] Comment on above: Order Comment: 411.2 Performed By: #### L 300.3900 ####[facility] [address] [place], [place], [phone]) Prothrombin timeOrdered By: Kvng Crisostomo on 06-12-2024 PT Coag (PPP) [Time] 24.0 s High 11.7-14.9 [facility] International normalized rat io (INR) calculationOrdered By: Carlos Cavazos on 06-09-2024 INR Coag (Bld) [Relative time] 1.5 {INR} [facility] Prothrombin Time w/INRon INR Coag (PPP) [Relative time] 1.5 {INR} Normal [facility] Comment on above: Order Comment: 411-2 Performed By: #### L 300.3900 ####[facility] [address] [place], [place], [phone] PT Coag (PPP) [Time] 18.0 s High 11.7-14.9 [facility] Comment on above: Order Comment: 411-2 Performed By: #### L 300.3900 ####[facility] [address] [place], [address] Prothrombin timeOrdered By: Carlos Cavazos on 06-09-2024 PT Coag (PPP) [Time] 18.0 s High 11.7-14.9 [facility] International normalized rat io (INR) calculationOrdered By: Kvng Crisostomo on 06-05-2024 INR Coag (Bld) [Relative time] 2.8 {INR} [facility] Prothrombin Time w/INRon INR Coag (PPP) [Relative time] 2.8 {INR} Normal [facility] Comment on above: Order Comment: 411.2 Performed By: #### L 300.3900 ####[facility] [address] [place], [address] PT Coag (PPP) [Time] 30.3 s High 11.7-14.9 [facility] Comment on above: Order Comment: 411.2 Performed By: #### L 300.3900 ####[facility] [address] [place], [address] Prothrombin timeOrdered By: Kvng Crisostomo on 06-05-2024 PT Coag (PPP) [Time] 30.3 s High 11.7-14.9 [facility] International normalized rat io (INR) calculationOrdered By: Kvng Crisostomo on 06-02-2024 INR Coag (Bld) [Relative time] 2.6 {INR} [facility] Prothrombin Time w/INRon INR Coag (PPP) [Relative time] 2.6 {INR} Normal [facility] Comment on above: Order Comment: 411.2 Performed By: #### L 300.3900 ####[facility] [address] [place], [address] PT Coag (PPP) [Time] 28.6 s High 11.7-14.9 [facility] Comment on above: Order Comment: 411.2 Performed By: #### L 300.3900 ####[facility] [address] [place], [address] Prothrombin timeOrdered By: Kvng Crisostomo on 06-02-2024 PT Coag (PPP) [Time] 28.6 s High 11.7-14.9 [facility] International normalized rat io (INR) calculationOrdered By: Kvng Crisostomo on 05-29-2024 INR Coag (Bld) [Relative time] 2.5 {INR} [facility] Prothrombin Time w/INRon INR Coag (PPP) [Relative time] 2.5 {INR} Normal [facility] Comment on above: Order Comment: 411.2 Performed By: #### L 300.3900 ####[facility] [address] [place], [address] PT Coag (PPP) [Time] 27.7 s High 11.7-14.9 [facility] Comment on above: Order Comment: 411.2 Performed By: #### L 300.3900 ####[facility] [address] [place], [address] Prothrombin timeOrdered By: Kvng Crisostomo on 05-29-2024 PT Coag (PPP) [Time] 27.7 s High 11.7-14.9 [facility] International normalized rat io (INR) calculationOrdered By: Carlos Cavazos on 05-26-2024 INR Coag (Bld) [Relative time] 2.2 {INR} [facility] Prothrombin Time w/INRon INR Coag (PPP) [Relative time] 2.2 {INR} Normal [facility] Comment on above: Order Comment: 411-2 Performed By: #### L 300.3900 ####[facility] [address] [place], [address] PT Coag (PPP) [Time] 24.5 s High 11.7-14.9 [facility] Comment on above: Order Comment: 411-2 Performed By: #### L 300.3900 ####[facility] [address] [place], [address] Prothrombin timeOrdered By: Carlos Cavazos on 05-26-2024 PT Coag (PPP) [Time] 24.5 s High 11.7-14.9 [facility] International normalized rat io (INR) calculationOrdered By: Kvng Crisostomo on 05-22-2024 INR Coag (Bld) [Relative time] 2.8 {INR} [facility] Prothrombin Time w/INRon INR Coag (PPP) [Relative time] 2.8 {INR} Normal [facility] Comment on above: Order Comment: 411.2 Performed By: #### L 300.3900 ####[facility] [address] [place], [address](745) PT Coag (PPP) [Time] 30.3 s High 11.7-14.9 [facility] Comment on above: Order Comment: 411.2 Performed By: #### L 300.3900 ####[facility] [address] [place] [phone] Prothrombin timeOrdered By: Kvng Crisostomo on 05-22-2024 PT Coag (PPP) [Time] 30.3 s High 11.7-14.9 [facility] International normalized rat io (INR) calculationOrdered By: Kvng Crisostomo on 05-20-2024 INR Coag (Bld) [Relative time] 4.0 {INR} High [facility] Comment on above: CRITICAL VALUE CASEY D TO [id number]/14/25 [facility] Diana Mattson.RESULTS READ BACK BY SAME. Prothrombin Time w/INRon INR Coag (PPP) [Relative time] 4.0 {INR} Invalid Interpretation Code [facility] Comment on above: Order Comment: 411.2 Result Comment: CRIT ICAL VALUE CALLED TO [address] [facility] Diana Mattson.RESULTS READ BACK BY SAME. Performed By: #### L 300.3900 ####[facility] [address] [place], [place], [phone] PT Coag (PPP) [Time] 39.9 s High 11.7-14.9 [facility] Comment on above: Order Comment: 411.2 Performed By: #### L 300.3900 ####[facility] [address] [place], [place], [phone] Prothrombin timeOrdered By: Kvng Crisostomo on 05-20-2024 PT Coag (PPP) [Time] 39.9 s High 11.7-14.9 [facility] International normalized rat io (INR) calculationOrdered By: Kvng Crisostomo on 05-19-2024 INR Coag (Bld) [Relative time] 3.4 {INR} [facility] Prothrombin Time w/INRon INR Coag (PPP) [Relative time] 3.4 {INR} Normal [facility] Comment on above: Order Comment: 411.2 Performed By: #### L 300.3900 ####[facility] [address] [place], [place], [phone] PT Coag (PPP) [Time] 35.4 s High 11.7-14.9 [facility] Comment on above: Order Comment: 411.2 Performed By: #### L 300.3900 ####[facility] [address] [place], [place], [phone] Prothrombin timeOrdered By: Kvng Crisostomo on 05-19-2024 PT Coag (PPP) [Time] 35.4 s High 11.7-14.9 [facility] International normalized rat io (INR) calculationOrdered By: Kvng Crisostomo on 05-15-2024 INR Coag (Bld) [Relative time] 2.6 {INR} [facility] Prothrombin Time w/INRon INR Coag (PPP) [Relative time] 2.6 {INR} Normal [facility] Comment on above: Order Comment: 411.2 Performed By: #### L 300.3900 ####[facility] [address] [place], [address] PT Coag (PPP) [Time] 28.7 s High 11.7-14.9 [facility] Comment on above: Order Comment: 411.2 Performed By: #### L 300.3900 ####[facility] [address] [place], [place], [phone] Prothrombin timeOrdered By: Kvng Crisostomo on 05-15-2024 PT Coag (PPP) [Time] 28.7 s High 11.7-14.9 [facility] International normalized rat io (INR) calculationOrdered By: Carlos Cavazos on 05-12-2024 INR Coag (Bld) [Relative time] 2.1 {INR} [facility] Prothrombin Time w/INRon INR Coag (PPP) [Relative time] 2.1 {INR} Normal [facility] Comment on above: Order Comment: 411-2 Performed By: #### L 300.3900 ####[facility] [address] [place], [place], [phone] PT Coag (PPP) [Time] 24.1 s High 11.7-14.9 [facility] Comment on above: Order Comment: 411-2 Performed By: #### L 300.3900 ####[facility] [address] [place], [place], [phone] Prothrombin timeOrdered By: Carlos Cavazos on 05-12-2024 PT Coag (PPP) [Time] 24.1 s High 11.7-14.9 [facility] International normalized rat io (INR) calculationOrdered By: Kvng Crisostomo on 05-09-2024 INR Coag (Bld) [Relative time] 3.4 {INR} [facility] Prothrombin Time w/INRon INR Coag (PPP) [Relative time] 3.4 {INR} Normal [facility] Comment on above: Order Comment: 411.2 Performed By: #### L 300.3900 ####[facility] [address] [place], [address] PT Coag (PPP) [Time] 35.4 s High 11.7-14.9 [facility] Comment on above: Order Comment: 411.2 Performed By: #### L 300.3900 ####[facility] [address] [place], [place], [phone] Prothrombin timeOrdered By: Kvng Crisostomo on 05-09-2024 PT Coag (PPP) [Time] 35.4 s High 11.7-14.9 [facility] International normalized rat io (INR) calculationOrdered By: Kvng Crisostomo on 05-08-2024 INR Coag (Bld) [Relative time] 4.1 {INR} High [facility] Comment on above: CRITICAL VALUE CASEY D TO COBY MCGINNIS05/08/24 0950 Karen Jamison.RESULTS READ BACK BY SAME. Prothrombin Time w/INRon INR Coag (PPP) [Relative time] 4.1 {INR} Invalid Interpretation Code [facility] Comment on above: Order Comment: 411.2 Result Comment: CRIT ICAL VALUE CALLED TO COBY MCGINNIS05/08/24 0950 Karenfer Jamison.RESULTS READ BACK BY SAME. Performed By: #### L 300.3900 ####[facility] [address] [place], [address] PT Coag (PPP) [Time] 40.8 s High 11.7-14.9 [facility] Comment on above: Order Comment: 411.2 Performed By: #### L 300.3900 ####[facility] [address] [place], [address] Prothrombin timeOrdered By: Kvng Crisostomo on 05-08-2024 PT Coag (PPP) [Time] 40.8 s High 11.7-14.9 [facility] International normalized rat io (INR) calculationOrdered By: Kvng Crisostomo on 05-05-2024 INR Coag (Bld) [Relative time] 3.2 {INR} [facility] Prothrombin Time w/INRon INR Coag (PPP) [Relative time] 3.2 {INR} Normal [facility] Comment on above: Order Comment: 411.2 Performed By: #### L 300.3900 ####[facility] [address] [place], [address] PT Coag (PPP) [Time] 32.5 s High 11.7-14.9 [facility] Comment on above: Order Comment: 411.2 Performed By: #### L 300.3900 ####[facility] [address] [place], [address] Prothrombin timeOrdered By: Kvng Crisostomo on 05-05-2024 PT Coag (PPP) [Time] 32.5 s High 11.7-14.9 [facility] International normalized rat io (INR) calculationOrdered By: Kvng Crisostmoo on 05-01-2024 INR Coag (Bld) [Relative time] 3.1 {INR} [facility] Prothrombin Time w/INRon INR Coag (PPP) [Relative time] 3.1 {INR} Normal [facility] Comment on above: Order Comment: 411.2 Performed By: #### L 300.3900 ####[facility] [address] [place], [address] PT Coag (PPP) [Time] 31.9 s High 11.7-14.9 [facility] Comment on above: Order Comment: 411.2 Performed By: #### L 300.3900 ####[facility] [address] [place], [address] Prothrombin timeOrdered By: Kvng Crisostomo on 05-01-2024 PT Coag (PPP) [Time] 31.9 s High 11.7-14.9 [facility] International normalized rat io (INR) calculationOrdered By: Carlos Cavazos on 04-28-2024 INR Coag (Bld) [Relative time] 2.6 {INR} [facility] Prothrombin Time w/INRon INR Coag (PPP) [Relative time] 2.6 {INR} Normal [facility] Comment on above: Order Comment: 411-2 Performed By: #### L 300.3900 ####[facility] [address] [place], [address] PT Coag (PPP) [Time] 27.3 s High 11.7-14.9 [facility] Comment on above: Order Comment: 411-2 Performed By: #### L 300.3900 ####[facility] [address] [place], [address] Prothrombin timeOrdered By: Carlos Cavazos on 04-28-2024 PT Coag (PPP) [Time] 27.3 s High 11.7-14.9 [facility] International normalized rat io (INR) calculationOrdered By: Kvng Crisostomo on 04-24-2024 INR Coag (Bld) [Relative time] 3.6 {INR} [facility] Prothrombin Time w/INRon INR Coag (PPP) [Relative time] 3.6 {INR} Normal [facility] Comment on above: Order Comment: 411.2 Performed By: #### L 300.3900 ####[facility] [address] [facility] [address] PT Coag (PPP) [Time] 35.6 s High 11.7-14.9 [facility] Comment on above: Order Comment: 411.2 Performed By: #### L 300.3900 ####[facility] [address] [facility] [address] Prothrombin timeOrdered By: Kvng Crisostomo on 04-24-2024 PT Coag (PPP) [Time] 35.6 s High 11.7-14.9 [facility] International normalized rat io (INR) calculationOrdered By: Carlos Cavazos on 04-21-2024 INR Coag (Bld) [Relative time] 2.8 {INR} [facility] Prothrombin Time w/INRon INR Coag (PPP) [Relative time] 2.8 {INR} Normal [facility] Comment on above: Order Comment: 411-2 Performed By: #### L 300.3900 ####[facility] [address] [place], [address] PT Coag (PPP) [Time] 29.4 s High 11.7-14.9 [facility] Comment on above: Order Comment: 411-2 Performed By: #### L 300.3900 ####[facility] [address] [place], [address] Prothrombin timeOrdered By: Carlos Cavazos on 04-21-2024 PT Coag (PPP) [Time] 29.4 s High 11.7-14.9 [facility] International normalized rat io (INR) calculationOrdered By: Kvng Crisostomo on 04-17-2024 INR Coag (Bld) [Relative time] 3.1 {INR} [facility] Prothrombin Time w/INRon INR Coag (PPP) [Relative time] 3.1 {INR} Normal [facility] Comment on above: Order Comment: 411.2 Performed By: #### L 300.3900 ####[facility] [address] [place], [place], [phone] Prothrombin timeOrdered By: Kvng Crisostomo on 04-17-2024 PT Coag (PPP) [Time] 31.3 s High 11.7-14.9 [facility] Comment on above: Order Comment: 411.2 Performed By: #### L 300.3900 ####[facility] [address] [place], [place], [id number] International normalized rat io (INR) calculationOrdered By: Kvng Crisostomo on 04-14-2024 INR Coag (Bld) [Relative time] 3.3 {INR} [facility] Prothrombin Time w/INRon INR Coag (PPP) [Relative time] 3.3 {INR} Normal [facility] Comment on above: Order Comment: 411.2 Performed By: #### L 300.3900 ####[facility] [address] [place], [place], [phone] PT Coag (PPP) [Time] 33.2 s High 11.7-14.9 [facility] Comment on above: Order Comment: 411.2 Performed By: #### L 300.3900 ####[facility] [address] [place], [place], [phone] Prothrombin timeOrdered By: Kvng Crisostomo on 04-14-2024 PT Coag (PPP) [Time] 33.2 s High 11.7-14.9 [facility] International normalized rat io (INR) calculationOrdered By: Kvng Crisostomo on 04-10-2024 INR Coag (Bld) [Relative time] 2.8 {INR} [facility] Prothrombin Time w/INRon INR Coag (PPP) [Relative time] 2.8 {INR} Normal [facility] Comment on above: Order Comment: 411.2 Performed By: #### L 300.3900 ####[facility] [address] [place], [address] PT Coag (PPP) [Time] 29.2 s High 11.7-14.9 [facility] Comment on above: Order Comment: 411.2 Performed By: #### L 300.3900 ####[facility] [address] [place], [address] Prothrombin timeOrdered By: Kvng Crisostomo on 04-10-2024 PT Coag (PPP) [Time] 29.2 s High 11.7-14.9 [facility] International normalized rat io (INR) calculationOrdered By: Carlos Cavazos on 04-07-2024 INR Coag (Bld) [Relative time] 2.7 {INR} [facility] Prothrombin Time w/INRon INR Coag (PPP) [Relative time] 2.7 {INR} Normal [facility] Comment on above: Order Comment: 411-2 Performed By: #### L 300.3900 ####[facility] [address] [place], [address] PT Coag (PPP) [Time] 28.1 s High 11.7-14.9 [facility] Comment on above: Order Comment: 411-2 Performed By: #### L 300.3900 ####[facility] [address] [place], [address] Prothrombin timeOrdered By: Carlos Cavazos on 04-07-2024 PT Coag (PPP) [Time] 28.1 s High 11.7-14.9 [facility] International normalized rat io (INR) calculationOrdered By: Kvng Crisostomo on 04-04-2024 INR Coag (Bld) [Relative time] 2.8 {INR} [facility] Prothrombin Time w/INRon INR Coag (PPP) [Relative time] 2.8 {INR} Normal [facility] Comment on above: Order Comment: 411.2 Performed By: #### L 300.3900 ####[facility] [address] [facility] [address] PT Coag (PPP) [Time] 28.9 s High 11.7-14.9 [facility] Comment on above: Order Comment: 411.2 Performed By: #### L 300.3900 ####[facility] [address] [place] [phone] Prothrombin timeOrdered By: Kvng Crisostomo on 04-04-2024 PT Coag (PPP) [Time] 28.9 s High 11.7-14.9 [facility] International normalized rat io (INR) calculationOrdered By: Carlos Cavazos on 03-31-2024 INR Coag (Bld) [Relative time] 2.6 {INR} [facility] Prothrombin Time w/INRon INR Coag (PPP) [Relative time] 2.6 {INR} Normal [facility] Comment on above: Order Comment: 411-2 Performed By: #### L 300.3900 ####[facility] [address] [place], [address] PT Coag (PPP) [Time] 27.3 s High 11.7-14.9 [facility] Comment on above: Order Comment: 411-2 Performed By: #### L 300.3900 ####[facility] [address] [place], [address] Prothrombin timeOrdered By: Carlos Cavazos on 03-31-2024 PT Coag (PPP) [Time] 27.3 s High 11.7-14.9 [facility] International normalized rat io (INR) calculationOrdered By: [employer] on 03-27-2024 INR Coag (Bld) [Relative time] 2.2 {INR} [facility] Prothrombin Time w/INRon INR Coag (PPP) [Relative time] 2.2 {INR} Normal [facility] Comment on above: Order Comment: 411.2 Performed By: #### L 300.3900 ####[facility] [address] [place] [phone] PT Coag (PPP) [Time] 24.3 s High 11.7-14.9 [facility] Comment on above: Order Comment: 411.2 Performed By: #### L 300.3900 ####[facility] [address] [facility] [address] Prothrombin timeOrdered By: [employer] on 03-27-2024 PT Coag (PPP) [Time] 24.3 s High 11.7-14.9 [facility] International normalized rat io (INR) calculationOrdered By: Kvng Crisostomo on 03-24-2024 INR Coag (Bld) [Relative time] 1.8 {INR} [facility] Prothrombin Time w/INRon INR Coag (PPP) [Relative time] 1.8 {INR} Normal [facility] Comment on above: Order Comment: 411.2 Performed By: #### L 300.3900 ####[facility] [address] [facility] [address] PT Coag (PPP) [Time] 20.7 s High 11.7-14.9 [facility] Comment on above: Order Comment: 411.2 Performed By: #### L 300.3900 ####[facility] [address] [place], [address] Prothrombin timeOrdered By: Kvng Crisostomo on 03-24-2024 PT Coag (PPP) [Time] 20.7 s High 11.7-14.9 [facility] International normalized rat io (INR) calculationOrdered By: [employer] on 03-20-2024 INR Coag (Bld) [Relative time] 1.8 {INR} [facility] Prothrombin Time w/INRon INR Coag (PPP) [Relative time] 1.8 {INR} Normal [facility] Comment on above: Order Comment: 411.2 Performed By: #### L 300.3900 ####[facility] [address] [place], [address] PT Coag (PPP) [Time] 20.9 s High 11.7-14.9 [facility] Comment on above: Order Comment: 411.2 Performed By: #### L 300.3900 ####[facility] [address] [place], [address] Prothrombin timeOrdered By: [employer] on 03-20-2024 PT Coag (PPP) [Time] 20.9 s High 11.7-14.9 [facility] International normalized rat io (INR) calculationOrdered By: Kvng Crisostomo on 03-19-2024 INR Coag (Bld) [Relative time] 2.4 {INR} [facility] Prothrombin Time w/INRon INR Coag (PPP) [Relative time] 2.4 {INR} Normal [facility] Comment on above: Order Comment: 411.2 Performed By: #### L 300.3900 ####[facility] [address] [place], [address] PT Coag (PPP) [Time] 26.4 s High 11.7-14.9 [facility] Comment on above: Order Comment: 411.2 Performed By: #### L 300.3900 ####[facility] [address] [place], [place], [phone] Prothrombin timeOrdered By: Kvng Crisostomo on 03-19-2024 PT Coag (PPP) [Time] 26.4 s High 11.7-14.9 [facility] International normalized rat io (INR) calculationOrdered By: [employer] on 03-18-2024 INR Coag (Bld) [Relative time] 3.2 {INR} [facility] Prothrombin Time w/INRon INR Coag (PPP) [Relative time] 3.2 {INR} Normal [facility] Comment on above: Order Comment: 411.2 Performed By: #### L 300.3900 ####[facility] [address] [place], [address] PT Coag (PPP) [Time] 32.3 s High 11.7-14.9 [facility] Comment on above: Order Comment: 411.2 Performed By: #### L 300.3900 ####[facility] [address] [place], [phone] Prothrombin timeOrdered By: [employer] on 03-18-2024 PT Coag (PPP) [Time] 32.3 s High 11.7-14.9 [facility] International normalized rat io (INR) calculationOrdered By: [employer] on 03-17-2024 INR Coag (Bld) [Relative time] 3.6 {INR} [facility] Prothrombin Time w/INRon INR Coag (PPP) [Relative time] 3.6 {INR} Normal [facility] Comment on above: Order Comment: 411.2 Performed By: #### L 300.3900 ####[facility] [address] [place], [address] PT Coag (PPP) [Time] 35.7 s High 11.7-14.9 [facility] Comment on above: Order Comment: 411.2 Performed By: #### L 300.3900 ####[facility] [address] [place], [place], [phone] Prothrombin timeOrdered By: [employer] on 03-17-2024 PT Coag (PPP) [Time] 35.7 s High 11.7-14.9 [facility] International normalized rat io (INR) calculationOrdered By: Carlos Cavazos on 03-14-2024 INR Coag (Bld) [Relative time] 3.5 {INR} [facility] Prothrombin Time w/INRon INR Coag (PPP) [Relative time] 3.5 {INR} Normal [facility] Comment on above: Order Comment: 411-2 Performed By: #### L 300.3900 ####[facility] [address] [place], [address] PT Coag (PPP) [Time] 35.0 s High 11.7-14.9 [facility] Comment on above: Order Comment: 411-2 Performed By: #### L 300.3900 ####[facility] [address] [place], [address] Prothrombin timeOrdered By: Carlos Cavazos on 03-14-2024 PT Coag (PPP) [Time] 35.0 s High 11.7-14.9 [facility] International normalized rat io (INR) calculationOrdered By: [employer] on 03-13-2024 INR Coag (Bld) [Relative time] 3.2 {INR} [facility] Prothrombin Time w/INRon INR Coag (PPP) [Relative time] 3.2 {INR} Normal [facility] Comment on above: Performed By: #### L 300.3900 ####[facility] [address] [place], [address] PT Coag (PPP) [Time] 32.2 s High 11.7-14.9 [facility] Comment on above: Performed By: #### L 300.3900 ####[facility] [address] [place], [address] Prothrombin timeOrdered By: [employer] on 03-13-2024 PT Coag (PPP) [Time] 32.2 s High 11.7-14.9 [facility] Prothrombin Time w/INRon INR Coag (PPP) [Relative time] 2.6 {INR} Normal [facility] Comment on above: Order Comment: 411.2 Performed By: #### L 300.3900 ####[facility] [address] [place], [address] PT Coag (PPP) [Time] 27.7 s High 11.7-14.9 [facility] Comment on above: Order Comment: 411.2 Performed By: #### L 300.3900 ####[facility] [address] [place], [address] Prothrombin Time w/INRon INR Coag (PPP) [Relative time] 3.1 {INR} Normal [facility] Comment on above: Order Comment: 411.2 Performed By: #### L 300.3900 ####[facility] [address] [place], [address] PT Coag (PPP) [Time] 31.4 s High 11.7-14.9 [facility] Comment on above: Order Comment: 411.2 Performed By: #### L 300.3900 ####[facility] [address] [place], [address] Prothrombin Time w/INRon INR Coag (PPP) [Relative time] 3.1 {INR} Normal [facility] Comment on above: Order Comment: 411.2 Performed By: #### L 300.3900 ####[facility] [address] [place], [address] PT Coag (PPP) [Time] 31.8 s High 11.7-14.9 [facility] Comment on above: Order Comment: 411.2 Performed By: #### L 300.3900 ####[facility] [address] [place], [address] Prothrombin Time w/INRon - -2023 INR Coag (PPP) [Relative time] 3.0 {INR} Normal [facility] Comment on above: Order Comment: 411.2 Performed By: #### L 300.3900 ####[facility] [address] [place], [address] PT Coag (PPP) [Time] 30.6 s High 11.7-14.9 [facility] Comment on above: Order Comment: 411.2 Performed By: #### L 300.3900 ####[facility] [address] [place], [address] Prothrombin Time w/INRon - INR Coag (PPP) [Relative time] 2.6 {INR} Normal [facility] Comment on above: Order Comment: 411-2 Performed By: #### L 300.3900 ####[facility] [address] [place], [address] PT Coag (PPP) [Time] 27.5 s High 11.7-14.9 [facility] Comment on above: Order Comment: 411-2 Performed By: #### L 300.3900 ####[facility] [address] [place], [address] Prothrombin Time w/INRon - -2023 INR Coag (PPP) [Relative time] 2.3 {INR} Normal [facility] Comment on above: Order Comment: 411.2 Performed By: #### L 300.3900 ####[facility] [address] [place], [address] PT Coag (PPP) [Time] 25.5 s High 11.7-14.9 [facility] Comment on above: Order Comment: 411.2 Performed By: #### L 300.3900 ####[facility] [address] [place], [address] Prothrombin Time w/INRon 10- 14-2024 INR Coag (PPP) [Relative time] 1.9 {INR} Normal [facility] Comment on above: Order Comment: 411.2 Performed By: #### L 300.3900 ####[facility] [address] [place], [address] PT Coag (PPP) [Time] 21.3 s High 11.7-14.9 [facility] Comment on above: Order Comment: 411.2 Performed By: #### L 300.3900 ####[facility] [address] [place], [address] Prothrombin Time w/INRon INR Coag (PPP) [Relative time] 2.5 {INR} Normal [facility] Comment on above: Order Comment: 411.2 Performed By: #### L 300.3900 ####[facility] [address] [place], [address] PT Coag (PPP) [Time] 26.5 s High 11.7-14.9 [facility] Comment on above: Order Comment: 411.2 Performed By: #### L 300.3900 ####[facility] [address] [place], [address] Prothrombin Time w/INRon INR Coag (PPP) [Relative time] 2.9 {INR} Normal [facility] Comment on above: Order Comment: 411.2 Performed By: #### L 300.3900 ####[facility] [address] [place], [address] PT Coag (PPP) [Time] 30.2 s High 11.7-14.9 [facility] Comment on above: Order Comment: 411.2 Performed By: #### L 300.3900 ####[facility] [address] [place], [address] Prothrombin Time w/INRon INR Coag (PPP) [Relative time] 3.6 {INR} Normal [facility] Comment on above: Order Comment: 411.2 Performed By: #### L 300.3900 ####[facility] [address] [place], [address] PT Coag (PPP) [Time] 35.3 s High 11.7-14.9 [facility] Comment on above: Order Comment: 411.2 Performed By: #### L 300.3900 ####[facility] [address] [place], [address] Prothrombin Time w/INRon INR Coag (PPP) [Relative time] 2.8 {INR} Normal [facility] Comment on above: Order Comment: 411-2 Performed By: #### L 300.3900 ####[facility] [address] [place], [address] PT Coag (PPP) [Time] 29.4 s High 11.7-14.9 [facility] Comment on above: Order Comment: 411-2 Performed By: #### L 300.3900 ####[facility] [address] [place], [address] Prothrombin Time w/INRon INR Coag (PPP) [Relative time] 2.9 {INR} Normal [facility] Comment on above: Order Comment: 411.2 Performed By: #### L 300.3900 ####[facility] [address] [place], [address] PT Coag (PPP) [Time] 29.9 s High 11.7-14.9 [facility] Comment on above: Order Comment: 411.2 Performed By: #### L 300.3900 ####[facility] [address] [place], [address] Prothrombin Time w/INRon INR Coag (PPP) [Relative time] 2.2 {INR} Normal [facility] Comment on above: Order Comment: 411.2 Performed By: #### L 300.3900 ####[facility] [address] [place], [address] PT Coag (PPP) [Time] 24.1 s High 11.7-14.9 [facility] Comment on above: Order Comment: 411.2 Performed By: #### L 300.3900 ####[facility] [address] [place], [address] Prothrombin Time w/INRon INR Coag (PPP) [Relative time] 2.1 {INR} Normal [facility] Comment on above: Order Comment: 411-2 Performed By: #### L 300.3900 ####[facility] [address] [place], [address] PT Coag (PPP) [Time] 23.0 s High 11.7-14.9 [facility] Comment on above: Order Comment: 411-2 Performed By: #### L 300.3900 ####[facility] [address] [place], [address] Prothrombin Time w/INRon INR Coag (PPP) [Relative time] 2.8 {INR} Normal [facility] Comment on above: Performed By: #### L 300.3900 ####[facility] [address] [place], [address] PT Coag (PPP) [Time] 28.9 s High 11.7-14.9 [facility] Comment on above: Performed By: #### L 300.3900 ####[facility] [address] [place], [address] Protime w/INR Fingerstickon 01-29-2024 INR Coag (PPP) [Relative time] 3.2 {INR} Normal [facility] Comment on above: Result Comment: Crit ical Value > 4.0 Performed By: #### L 9200.0000 ####[facility] [address] [place], [address] Protime Coagsen 31.8 SEC High 11.7-14.9 [facility] Comment on above: Performed By: #### L 9200.0000 ####[facility] [address] [place], [address] KEPPRA (LEVETIRACETAM)on KEPPRA 35.2 ug/mL Normal 10.0-40.0 [facility] Comment on above: Order Comment: 411-2 Result Comment: Perf ormed at: [facility] [address] [id number] Director: Alpesh Vázquez MD, Phone: [phone] Performed By: #### L 300.3900, L3310.0000 ####[facility] [address] [place], [address] Prothrombin Time w/INRon INR Coag (PPP) [Relative time] 2.9 {INR} Normal [facility] Comment on above: Order Comment: 411-2 Performed By: #### L 300.3900, L3310.0000 ####[facility] [address] [place], [address] PT Coag (PPP) [Time] 30.1 s High 11.7-14.9 [facility] Comment on above: Order Comment: 411-2 Performed By: #### L 300.3900, L3310.0000 ####[facility] [address] [place], [address] Prothrombin Time w/INRon INR Coag (PPP) [Relative time] 2.3 {INR} Normal [facility] Comment on above: Order Comment: 411-2 Performed By: #### L 300.3900 ####[facility] [address] [place], [address] PT Coag (PPP) [Time] 25.2 s High 11.7-14.9 [facility] Comment on above: Order Comment: 411-2 Performed By: #### L 300.3900 ####[facility] [address] [place], [address] Prothrombin Time w/INRon INR Coag (PPP) [Relative time] 2.7 {INR} Normal [facility] Comment on above: Order Comment: 411-2 Performed By: #### L 300.3900 ####[facility] [address] [place], [address] PT Coag (PPP) [Time] 28.3 s High 11.7-14.9 [facility] Comment on above: Order Comment: 411-2 Performed By: #### L 300.3900 ####[facility] [address] [place], [address] Protime w/INR Fingerstickon 01-10-2024 INR Coag (PPP) [Relative time] 3.5 {INR} Normal [facility] Comment on above: Result Comment: Crit ical Value > 4.0 Performed By: #### L 9200.0000 ####[facility] [address] [place], [address] Protime Coagsen 34.2 SEC High 11.7-14.9 [facility] Comment on above: Performed By: #### L 9200.0000 ####[facility] [address] [place], [address] CBC-Complete Blood Cnt No Di ffon 01-08-2024 Erythrocyte distribution width (RBC) [Ratio] 15.2 % High 11.6-14.6 [facility] Comment on above: Order Comment: 411-2 Performed By: #### L 100.0500, L300.3900 ####[facility] [address] [place], [address] Hematocrit (Bld) [Volume fraction] 39.0 % Low 40-54 [facility] Comment on above: Order Comment: 411-2 Performed By: #### L 100.0500, L300.3900 ####[facility] [address] [place], [address] Hemoglobin (Bld) [Mass/Vol] 12.1 g/dL Low 13.0-16.5 [facility] Comment on above: Order Comment: 411-2 Performed By: #### L 100.0500, L300.3900 ####[facility] [address] [place], [address] MCH (RBC) [Entitic mass] 27.1 pg Normal 27.0-32.0 [facility] Comment on above: Order Comment: 411-2 Performed By: #### L 100.0500, L300.3900 ####[facility] [address] [place], [address] MCHC (RBC) [Mass/Vol] 31.0 g/dL Low 32-36 [facility] Comment on above: Order Comment: 411-2 Performed By: #### L 100.0500, L300.3900 ####[facility] [address] [place], [address] MCV (RBC) [Entitic vol] 87.2 fL Normal 80-94 [facility] Comment on above: Order Comment: 411-2 Performed By: #### L 100.0500, L300.3900 ####[facility] [address] [place], [address] Platelet mean volume (Bld) [Entitic vol] 10.8 fL Normal 6.2-12.0 [facility] Comment on above: Order Comment: 411-2 Performed By: #### L 100.0500, L300.3900 ####[facility] [address] [place], [address] Platelets (Bld) [#/Vol] 300 10*3/uL Normal 150-450 [facility] Comment on above: Order Comment: 411-2 Performed By: #### L 100.0500, L300.3900 ####[facility] [address] [place], [address] RBC (Bld) [#/Vol] 4.47 10*6/uL Low 4.6-6.2 [facility] Comment on above: Order Comment: 411-2 Performed By: #### L 100.0500, L300.3900 ####[facility] [address] [place], [address] RDW SD 48.7 fl High 35.1-43.9 [facility] Comment on above: Order Comment: 411-2 Performed By: #### L 100.0500, L300.3900 ####[facility] [address] [place], [address] WBC (Bld) [#/Vol] 13.0 10*3/uL High 4.4-11.0 [facility] Comment on above: Order Comment: 411-2 Performed By: #### L 100.0500, L300.3900 ####[facility] [address] [place], [address] Prothrombin Time w/INRon INR Coag (PPP) [Relative time] 3.9 {INR} Normal [facility] Comment on above: Order Comment: 411-2 Performed By: #### L 100.0500, L300.3900 ####[facility] [address] [place], [address] PT Coag (PPP) [Time] 37.8 s High 11.7-14.9 [facility] Comment on above: Order Comment: 411-2 Performed By: #### L 100.0500, L300.3900 ####[facility] [address] [place], [address] Urine Cultureon 01-03-2024 URC Culture exhibits no growth. Normal [facility] Comment on above: Performed By: #### M 100.2200, L400.0001, L300.3900 ####[facility] [address] [place], [address] Prothrombin Time w/INRon INR Coag (PPP) [Relative time] 3.0 {INR} Normal [facility] Comment on above: Performed By: #### M 100.2200, L400.0001, L300.3900 ####[facility] [address] [place], [address] PT Coag (PPP) [Time] 30.7 s High 11.7-14.9 [facility] Comment on above: Performed By: #### M 100.2200, L400.0001, L300.3900 ####[facility] [address] [place], [address] Urinalysis, Completeon 01-01 RBC 0-5 SEEN Normal 0-5 [facility] Comment on above: Order Comment: CLEAN CATCH Performed By: #### M 100.2200, L400.0001, L300.3900 ####[facility] [address] [place], [address] BACTERIA 0 SEEN Normal None Seen [facility] Comment on above: Order Comment: CLEAN CATCH Performed By: #### M 100.2200, L400.0001, L300.3900 ####[facility] [address] [place], [address] EPI,SQUAMOUS 0 SEEN Normal 0-5 [facility] Comment on above: Order Comment: CLEAN CATCH Performed By: #### M 100.2200, L400.0001, L300.3900 ####[facility] [address] [place], [address] Mucus Ql (Urine sed) 0 SEEN Normal [facility] Comment on above: Order Comment: CLEAN CATCH Performed By: #### M 100.2200, L400.0001, L300.3900 ####[facility] [address] [place], [address] WBC 0 SEEN Normal 0-5 [facility] Comment on above: Order Comment: CLEAN CATCH Performed By: #### M 100.2200, L400.0001, L300.3900 ####[facility] [address] [place], [address] Office Visiton 09-13-2023 Follow-up visit [id number] Tamie Sifuentes cheng Gonzalez 1950 Walt Pak Provider Department Center 09/13/2023 [id number] BUCK [facility] None Family History Problem Relation Age of Onset Heart disease Father Cancer Mother Family Status - Relation Status Age at Father Mother Level of Service:06216 MS OFFICE/OUTPATIENT ESTABLISHED MOD MDM 30 MIN Reason for Visit and Comments: left flank pain [Other] - 8/10 pain when touched Normal [facility] Progress Noteon 09-13-2023 Progress Note Walt [...] Hydrocephalus, adult (CMS/HCC) (HCC) Kidney stone Neuropathy BLOW MOLD OPERATOR (ventriculoperitoneal) shunt status Past Surgical History: [...] 03/02/2022 CR (more content not included)... Normal [facility] CT ABDOMEN PELVIS WO IV CONT Kelly 09-07-2023 CT ABDOMEN PELVIS WO IV CONTRAST Patient Name: ANDREW SIFUENTES : 1950 [facility]#: [id number] Exam Date/Time: 09/06/2023 18:14 Procedure: CT ABDOMEN [...] a kidney stone; pt has a hernia [facility] 36on 08-29-2023 36 Lm on daughters vm t o advise them to call the number for the manager commercial sales to get clarification, and to call back with further questions [place] [address]on 08-27-2023 36 Yes, they will need to call the number given to them. [facility] 36 Please advise [address] 08-21-2023 36 Name of caller: Zion hotl Contact phone number: [phone] Relationship to Patient: patient Provider: MD Quinn Practice: [facility] Chief Complaint/Reason for Call: Shanthi called in to see if Pt would need to come by cot for his CT appt due to Pt being Boaz. TEA did reach out to office and was advised to reach out to Central Scheduling. TEA did reach out to and was advised to let [facility] know that she would need to reach out to call Maury Cedeño Lace Winder at [facility] [phone] to get clarifications. [facility] did reach back out to [facility] and advised and provider Maury's #. Please advise Best time of day caller can be reached: Any Patient advised that office/PCP has 24-48 business hours to return their call: N/A [facility] Laboratory - CoagulationOrde red By: Carlos Cavazos on 08-21-2023 INR Coag (Bld) [Relative time] 2.7 {INR} [facility] PT Coag (PPP) [Time] 28.9 s 11.7-14.9 [facility] Office Visiton 08-13-2023 Follow-up visit [id number] Tamie Sifuentes ld R 1950 M Date Provider Department Center 08/13/2023 [id number] BUCK [facility] None Family History Problem Relation Age of Onset Heart disease Father Cancer Mother Family Status - Relation Status Age at Father Mother Level of Service:27663 MS OFFICE/OUTPATIENT NEW MODERATE MDM 45 MINUTES Reason for Visit and Comments: New Patient [542] - Bilateral flank pain, hx of kidney stones Nephrolithiasis [314307] Normal [facility] Progress Noteon 08-13-2023 Progress Note Walt [...] Hydrocephalus, adult (CMS/HCC) (HCC) Kidney stone Neuropathy BLOW MOLD OPERATOR (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 Normal [facility] No Panel InformationOrdered By: Carlos Cavazos on 08-03-2023 Levetiracetam (Keppra) Level 32.4 ug/mL 10.0-40.0 [facility] Comment on above: Performed at: [address] [id number] Director: Alpesh Vázquez MD, Phone: [phone] Basophil percentageOrdered B y: Carlos Cavazos on 07-20-2023 Chloride [Moles/Vol] 106 mmol/L 98-107 [facility] Glucose [Mass/Vol] 98 mg/dL 74-106 [facility] Hemoglobin (Bld) [Mass/Vol] 12.5 g/dL 13.0-16.5 [facility] Potassium [Moles/Vol] 4.3 mmol/L 3.5-5.1 [facility] Sodium [Moles/Vol] 135 mmol/L 136-145 [facility] WBC (Bld) [#/Vol] 13.0 10*3/uL 4.4-11.0 [facility] Determination of erythrocyte mean corpuscular volume (MCV)Ordered By: Carlos Cavazos on 07-20-2023 MCV (RBC) [Entitic vol] 86.2 fL 80-94 [facility] Erythrocyte distribution wid th ratioOrdered By: Carlos Cavazos on 07-20-2023 Erythrocyte distribution width (RBC) [Ratio] 15.3 % 11.6-14.6 [facility] Erythrocyte distribution wid th standard deviationOrdered By: Carlos Cavazos on 07-20-2023 Erythrocyte distribution width (RBC) [Entitic vol] 48.1 fL 35.1-43.9 [facility] Hematocrit Auto (Bld) [Volum e fraction]Ordered By: Carlos Cavazos on 07-20-2023 Hematocrit (Bld) [Volume fraction] 39.9 % 40-54 [facility] Laboratory - Chemistry and C hemistry - challengeOrdered By: Carlos Cavazos on 07-20-2023 CO2 [Moles/Vol] 24.0 mmol/L 21.0-32.0 [facility] Urea nitrogen/Creatinine [Mass ratio] 24.6 mg/mg 10-20 [facility] Laboratory - Hematology and Cell countsOrdered By: Carlos Cavazos on 07-20-2023 MCH (RBC) [Entitic mass] 27.0 pg 27.0-32.0 [facility] MCHC (RBC) [Mass/Vol] 31.3 g/dL 32-36 [facility] Platelet mean volume (Bld) [Entitic vol] 10.7 fL 6.2-12.0 [facility] Platelets (Bld) [#/Vol] 260 10*3/uL 150-450 [facility] No Panel InformationOrdered By: Carlos Cavazos on 07-20-2023 Estimated GFR (MDRD) Amer 114 mL/min >60 [facility] Comment on above: GFR Calc Estimated GFR (MDRD) Non-Af Amer 94 mL/min >60 [facility] Comment on above: Non- GFR Calc RBC Auto (Bld) [#/Vol]Ordere d By: Carlos Cavazos on 07-20-2023 RBC (Bld) [#/Vol] 4.63 10*6/uL 4.6-6.2 [facility] Serum or plasma calcium oral urement (mass/volume)Ordered By: Carlos Cavazos on 07-20-2023 Calcium [Mass/Vol] 8.6 mg/dL 8.5-10.1 [facility] Serum or plasma creatinine m easurement (mass/volume)Ordered By: Carlos Cavazos on 07-20-2023 Creatinine [Mass/Vol] 0.85 mg/dL 0.70-1.30 [facility] Comment on above: The validity of the calculated GFR & GFRAA in patients over 70 years has not been determined. Clinical correlation is essential. Serum or plasma urea nitroge n measurement (mass/volume)Ordered By: Carlos Cavazos on 07-20-2023 Urea nitrogen [Mass/Vol] 21 mg/dL 7-18 [facility] Thin prep Papanicolaou smear with manual screeningOrdered By: Carlos Cavazos on 07-20-2023 Thin prep Papanicolaou smear with manual screening 5 5-15 [facility] Basophil percentageOrdered B y: Carlos Cavazos on 07-18-2023 Chloride [Moles/Vol] 102 mmol/L 98-107 [facility] Glucose [Mass/Vol] 96 mg/dL 74-106 [facility] Hemoglobin (Bld) [Mass/Vol] 12.3 g/dL 13.0-16.5 [facility] Potassium [Moles/Vol] 4.2 mmol/L 3.5-5.1 [facility] Sodium [Moles/Vol] 136 mmol/L 136-145 [facility] WBC (Bld) [#/Vol] 14.7 10*3/uL 4.4-11.0 [facility] Determination of erythrocyte mean corpuscular volume (MCV)Ordered By: Carlos Cavazos on 07-18-2023 MCV (RBC) [Entitic vol] 85.4 fL 80-94 [facility] Erythrocyte distribution wid th ratioOrdered By: Carlos Cavazos on 07-18-2023 Erythrocyte distribution width (RBC) [Ratio] 15.1 % 11.6-14.6 [facility] Erythrocyte distribution wid th standard deviationOrdered By: Carlos Cavazos on 07-18-2023 Erythrocyte distribution width (RBC) [Entitic vol] 47.3 fL 35.1-43.9 [facility] Hematocrit Auto (Bld) [Volum e fraction]Ordered By: Carlos Cavazos on 07-18-2023 Hematocrit (Bld) [Volume fraction] 39.3 % 40-54 [facility] Laboratory - Chemistry and C hemistry - challengeOrdered By: Carlos Cavazos on 07-18-2023 CO2 [Moles/Vol] 27.0 mmol/L 21.0-32.0 [facility] Urea nitrogen/Creatinine [Mass ratio] 24.4 mg/mg 10-20 [facility] Laboratory - Hematology and Cell countsOrdered By: Carlos Cavazos on 07-18-2023 MCH (RBC) [Entitic mass] 26.7 pg 27.0-32.0 [facility] MCHC (RBC) [Mass/Vol] 31.3 g/dL 32-36 [facility] Platelet mean volume (Bld) [Entitic vol] 10.3 fL 6.2-12.0 [facility] Platelets (Bld) [#/Vol] 288 10*3/uL 150-450 [facility] No Panel InformationOrdered By: Carlos Cavazos on 07-18-2023 Estimated GFR (MDRD) Amer 113 mL/min >60 [facility] Comment on above: GFR Calc Estimated GFR (MDRD) Non-Af Amer 93 mL/min >60 [facility] Comment on above: Non- GFR Calc RBC Auto (Bld) [#/Vol]Ordere d By: Carlos Cavazos on 07-18-2023 RBC (Bld) [#/Vol] 4.60 10*6/uL 4.6-6.2 [facility] Serum or plasma calcium oral urement (mass/volume)Ordered By: Carlos Cavazos on 07-18-2023 Calcium [Mass/Vol] 8.9 mg/dL 8.5-10.1 [facility] Serum or plasma creatinine m easurement (mass/volume)Ordered By: Carlos Cavazos on 07-18-2023 Creatinine [Mass/Vol] 0.86 mg/dL 0.70-1.30 [facility] Comment on above: The validity of the calculated GFR & GFRAA in patients over 70 years has not been determined. Clinical correlation is essential. Serum or plasma urea nitroge n measurement (mass/volume)Ordered By: Carlos Cavazos on 07-18-2023 Urea nitrogen [Mass/Vol] 21 mg/dL 7-18 [facility] Thin prep Papanicolaou smear with manual screeningOrdered By: Carlos Cavazos on 07-18-2023 Thin prep Papanicolaou smear with manual screening 7 5-15 [facility] Basophil percentageOrdered B y: Carlos Cavazos on 07-17-2023 Basophil percentage 0-5 SEEN /hpf 0-5 [facility] Bilirubin Test strip Ql (U)O rdered By: Carlos Cavazos on 07-17-2023 Bilirubin Ql (U) Negative Negative [facility] Calcium oxalate crystals det ection in urine sediment by light microscopyOrdered By: Carlos Cavazos on 07-17-2023 Calcium oxalate crystals LM Ql (Urine sed) 1+ /hpf [facility] Culture, urineOrdered By: Sharif Crouch on 07-17-2023 Bacteria identified Cx Nom (U) Positive [facility] Ketones Test strip Ql (U)Ord ered By: Carlos Cavazos on 07-17-2023 Ketones Ql (U) Negative Negative [facility] Mucus LM Ql (Urine sed)Order ed By: Carlos Cavazos on 07-17-2023 Mucus Ql (Urine sed) 0 SEEN /hpf [facility] Nitrite Test strip Ql (U)Ord ered By: Carlso Cavazos on 07-17-2023 Nitrite Ql (U) Negative Negative [facility] No Panel InformationOrdered By: Carlos Cavazos on 07-17-2023 Urine RBC 0 SEEN /hpf 0-5 [facility] Protein Test strip Ql (U)Ord ered By: Carlos Cavazos on 07-17-2023 Protein Ql (U) Negative Negative [facility] Squamous epithelial cells de tection in urine sediment by light microscopyOrdered By: Carlos Cavazos on 07-17-2023 Epithelial cells.squamous LM Ql (Urine sed) 0-5 SEEN /hpf 0-5 [facility] Urine blood detectionOrdered By: Carlos Cavazos on 07-17-2023 RBC Ql (U) Negative Negative [facility] Urine clarityOrdered By: Ted Cavazos on 07-17-2023 Clarity (U) Clear Clear [facility] Urine color determinationOrd ered By: Carlos Cavazos on 07-17-2023 Color (U) Yellow Yellow [facility] Urine glucose detectionOrder ed By: Carlos Cavazos on 07-17-2023 Glucose Ql (U) Normal mg/dl Normal [facility] Urine leukocyte esterase det ection by dipstickOrdered By: Carlos Cavazos on 07-17-2023 Leukocyte esterase Test strip Ql (U) 25 /ul Negative [facility] Urine pHOrdered By: Carlos flores on 07-17-2023 pH (U) 6.0 [pH] 5.0 - 8.0 [facility] Urine sediment bacteria coun t by microscopy (number/high power field)Ordered By: Carlos Cavazos on 07-17-2023 Bacteria LM.HPF (Urine sed) [#/Area] 0 /[HPF] None Seen [facility] Urine specific gravity measu rementOrdered By: Carlos Cavazos on 07-17-2023 Specific gravity (U) [Rel density] 1.020 1.002-1.030 [facility] Urine urobilinogen measureme ntOrdered By: Carlos Cavazos on 07-17-2023 Urobilinogen Ql (U) Normal mg/dl Normal [facility] Absolute lymphocyte countOrd ered By: Carlos Cavazos on 07-16-2023 Lymphocytes Auto (Unsp spec) [#/Vol] 6.02 10*3/uL 0.83-4.51 [facility] Automated lymphocyte count a s percentage of total leukocytesOrdered By: Carlos Cavazos on 07-16-2023 Lymphocytes/100 WBC Auto (Unsp spec) 49.1 % 19-41 [facility] Basophil percentageOrdered B y: Carlos Cavazos on 07-16-2023 Basophils/100 WBC (Bld) 0.6 % 0-1 [facility] Chloride [Moles/Vol] 105 mmol/L 98-107 [facility] Eosinophils/100 WBC (Bld) 2.0 % 0-5 [facility] Glucose [Mass/Vol] 93 mg/dL 74-106 [facility] Hemoglobin (Bld) [Mass/Vol] 12.1 g/dL 13.0-16.5 [facility] Monocytes/100 WBC (Bld) 5.3 % 0-10 [facility] Neutrophils (Bld) [#/Vol] 5.2 10*3/uL 2.0-7.7 [facility] Neutrophils/100 WBC (Bld) 42.8 % 47-70 [facility] Potassium [Moles/Vol] 4.3 mmol/L 3.5-5.1 [facility] Sodium [Moles/Vol] 138 mmol/L 136-145 [facility] WBC (Bld) [#/Vol] 12.3 10*3/uL 4.4-11.0 [facility] [place] manual differential co mment interpretation (narrative result)Ordered By: Carlos Cavazos on 07-16-2023 Manual differential comment Shemar (Bld) [Interp] SCANNED [facility] Determination of erythrocyte mean corpuscular volume (MCV)Ordered By: Carlos Cavazos on 07-16-2023 MCV (RBC) [Entitic vol] 86.8 fL 80-94 [facility] Erythrocyte distribution wid th ratioOrdered By: Carlos Cavazos on 07-16-2023 Erythrocyte distribution width (RBC) [Ratio] 15.3 % 11.6-14.6 [facility] Erythrocyte distribution wid th standard deviationOrdered By: Carlos Cavazos on 07-16-2023 Erythrocyte distribution width (RBC) [Entitic vol] 48.9 fL 35.1-43.9 [facility] Hematocrit Auto (Bld) [Volum e fraction]Ordered By: Carlos Cavazos on 07-16-2023 Hematocrit (Bld) [Volume fraction] 38.7 % 40-54 [facility] Immature granulocytes/100 WB C Auto (Bld)Ordered By: Carlos Cavazos on 07-16-2023 Immature granulocytes/100 WBC (Bld) 0.200 % 0.0-0.9 [facility] Comment on above: IG% - Immature Granu locytes (promyelocytes, myelocytes and metamyelocytes) > 1% indicates that a LEFT SHIFT is Present. Laboratory - Chemistry and C hemistry - challengeOrdered By: Carlos Cavazos on 07-16-2023 CO2 [Moles/Vol] 25.0 mmol/L 21.0-32.0 [facility] Urea nitrogen/Creatinine [Mass ratio] 21.0 mg/mg 10-20 [facility] Laboratory - CoagulationOrde red By: Carlos Cavazos on 07-16-2023 INR Coag (Bld) [Relative time] 2.4 {INR} [facility] PT Coag (PPP) [Time] 25.7 s 11.7-14.9 [facility] Laboratory - Hematology and Cell countsOrdered By: Carlos Cavazos on 07-16-2023 MCH (RBC) [Entitic mass] 27.1 pg 27.0-32.0 [facility] MCHC (RBC) [Mass/Vol] 31.3 g/dL 32-36 [facility] Nucleated RBC/100 WBC (Bld) [Ratio] 0 % 0-5 [facility] Platelet mean volume (Bld) [Entitic vol] 10.5 fL 6.2-12.0 [facility] Platelets (Bld) [#/Vol] 289 10*3/uL 150-450 [facility] No Panel InformationOrdered By: Carlos Cavazos on 07-16-2023 Estimated GFR (MDRD) Amer 106 mL/min >60 [facility] Comment on above: GFR Calc Estimated GFR (MDRD) Non-Af Amer 88 mL/min >60 [facility] Comment on above: Non- GFR Calc Reactive Lymphocytes 1+ [facility] RBC Auto (Bld) [#/Vol]Ordere d By: Carlos Cavazos on 07-16-2023 RBC (Bld) [#/Vol] 4.46 10*6/uL 4.6-6.2 [facility] Serum or plasma calcium oral urement (mass/volume)Ordered By: Carlos Cavazos on 07-16-2023 Calcium [Mass/Vol] 9.0 mg/dL 8.5-10.1 [facility] Serum or plasma creatinine m easurement (mass/volume)Ordered By: Carlos Cavazos on 07-16-2023 Creatinine [Mass/Vol] 0.90 mg/dL 0.70-1.30 [facility] Comment on above: The validity of the calculated GFR & GFRAA in patients over 70 years has not been determined. Clinical correlation is essential. Serum or plasma urea nitroge n measurement (mass/volume)Ordered By: Carlos Cavazos on 07-16-2023 Urea nitrogen [Mass/Vol] 19 mg/dL 7-18 [facility] Thin prep Papanicolaou smear with manual screeningOrdered By: Carlos Cavazos on 07-16-2023 Thin prep Papanicolaou smear with manual screening 8 5-15 [facility] Absolute lymphocyte countOrd ered By: Carlos Cavazos on 07-13-2023 Lymphocytes Auto (Unsp spec) [#/Vol] 5.44 10*3/uL 0.83-4.51 [facility] Automated lymphocyte count a s percentage of total leukocytesOrdered By: Carlos Cavazos on 07-13-2023 Lymphocytes/100 WBC Auto (Unsp spec) 47.3 % 19-41 [facility] Basophil percentageOrdered B y: Carlos Cavazos on 07-13-2023 Basophils/100 WBC (Bld) 0.4 % 0-1 [facility] Chloride [Moles/Vol] 107 mmol/L 98-107 [facility] Eosinophils/100 WBC (Bld) 1.7 % 0-5 [facility] Glucose [Mass/Vol] 96 mg/dL 74-106 [facility] Hemoglobin (Bld) [Mass/Vol] 13.5 g/dL 13.0-16.5 [facility] Monocytes/100 WBC (Bld) 4.3 % 0-10 [facility] Neutrophils (Bld) [#/Vol] 5.3 10*3/uL 2.0-7.7 [facility] Neutrophils/100 WBC (Bld) 46.0 % 47-70 [facility] Potassium [Moles/Vol] 4.0 mmol/L 3.5-5.1 [facility] Sodium [Moles/Vol] 139 mmol/L 136-145 [facility] WBC (Bld) [#/Vol] 11.5 10*3/uL 4.4-11.0 [facility] Determination of erythrocyte mean corpuscular volume (MCV)Ordered By: Carlos Cavazos on 07-13-2023 MCV (RBC) [Entitic vol] 86.1 fL 80-94 [facility] Erythrocyte distribution wid th ratioOrdered By: Carlos Cavazos on 07-13-2023 Erythrocyte distribution width (RBC) [Ratio] 15.2 % 11.6-14.6 [facility] Erythrocyte distribution wid th standard deviationOrdered By: Carlos Cavazos on 07-13-2023 Erythrocyte distribution width (RBC) [Entitic vol] 48.0 fL 35.1-43.9 [facility] Hematocrit Auto (Bld) [Volum e fraction]Ordered By: Carlos Cavazos on 07-13-2023 Hematocrit (Bld) [Volume fraction] 42.2 % 40-54 [facility] Immature granulocytes/100 WB C Auto (Bld)Ordered By: Carlos Cavazos on 07-13-2023 Immature granulocytes/100 WBC (Bld) 0.300 % 0.0-0.9 [facility] Comment on above: IG% - Immature Granu locytes (promyelocytes, myelocytes and metamyelocytes) > 1% indicates that a LEFT SHIFT is Present. Laboratory - Chemistry and C hemistry - challengeOrdered By: Carlos Cavazos on 07-13-2023 CO2 [Moles/Vol] 26.0 mmol/L 21.0-32.0 [facility] Urea nitrogen/Creatinine [Mass ratio] 21.8 mg/mg 10-20 [facility] Laboratory - Hematology and Cell countsOrdered By: Carlos Cavazos on 07-13-2023 MCH (RBC) [Entitic mass] 27.6 pg 27.0-32.0 [facility] MCHC (RBC) [Mass/Vol] 32.0 g/dL 32-36 [facility] Nucleated RBC/100 WBC (Bld) [Ratio] 0 % 0-5 [facility] Platelet mean volume (Bld) [Entitic vol] 10.1 fL 6.2-12.0 [facility] Platelets (Bld) [#/Vol] 279 10*3/uL 150-450 [facility] No Panel InformationOrdered By: Carlos Cavazos on 07-13-2023 Estimated GFR (MDRD) Amer 118 mL/min >60 [facility] Comment on above: GFR Calc Estimated GFR (MDRD) Non-Af Amer 98 mL/min >60 [facility] Comment on above: Non- GFR Calc Levetiracetam (Keppra) Level 25.5 ug/mL 10.0-40.0 [facility] Comment on above: Performed at: [address] [id number] Director: Alpesh Vázquez MD, Phone: [phone] RBC Auto (Bld) [#/Vol]Ordere d By: Carlos Cavazos on 07-13-2023 RBC (Bld) [#/Vol] 4.90 10*6/uL 4.6-6.2 [facility] Serum or plasma calcium oral urement (mass/volume)Ordered By: Carlos Cavazos on 07-13-2023 Calcium [Mass/Vol] 9.1 mg/dL 8.5-10.1 [facility] Serum or plasma creatinine m easurement (mass/volume)Ordered By: Carlos Cavazos on 07-13-2023 Creatinine [Mass/Vol] 0.82 mg/dL 0.70-1.30 [facility] Comment on above: The validity of the calculated GFR & GFRAA in patients over 70 years has not been determined. Clinical correlation is essential. Serum or plasma urea nitroge n measurement (mass/volume)Ordered By: Carlos Cavazos on 07-13-2023 Urea nitrogen [Mass/Vol] 18 mg/dL 7-18 [facility] Thin prep Papanicolaou smear with manual screeningOrdered By: Carlos Cavazos on 07-13-2023 Thin prep Papanicolaou smear with manual screening 6 5-15 [facility] No Panel InformationOrdered By: Carlos Cavazos on 07-12-2023 Valproic Acid (Depakene) Level < 3 ug/mL 50-100 [facility] Laboratory - CoagulationOrde red By: Carlos Cavazos on 07-05-2023 INR Coag (Bld) [Relative time] 2.4 {INR} [facility] PT Coag (PPP) [Time] 26.3 s 11.7-14.9 [facility] Laboratory - CoagulationOrde red By: Carlos Cavazos on 07-02-2023 INR Coag (Bld) [Relative time] 1.5 {INR} [facility] PT Coag (PPP) [Time] 18.5 s 11.7-14.9 [facility] Laboratory - CoagulationOrde red By: Carlos Cavazos on 06-28-2023 INR Coag (Bld) [Relative time] 1.7 {INR} [facility] PT Coag (PPP) [Time] 20.5 s 11.7-14.9 [facility] 36on 06-25-2023 36 [facility] tuary called in stating appt scheduled 07/10/23 Guy has to be made further out, pt being transported by cot. Changed appt to 08/13/23 per [facility] only avail time for transport, first avail with DR Buck at 10:00 AM. [facility] Laboratory - CoagulationOrde red By: Carlos Cavazos on 06-25-2023 INR Coag (Bld) [Relative time] 3.8 {INR} [facility] PT Coag (PPP) [Time] 38.2 s 11.7-14.9 [facility] Laboratory - CoagulationOrde red By: Carlos Cavazos on 06-21-2023 INR Coag (Bld) [Relative time] 3.2 {INR} [facility] PT Coag (PPP) [Time] 32.9 s 11.7-14.9 [facility] No Panel InformationOrdered By: Carlos Cavazos on 06-13-2023 Valproic Acid (Depakene) Level < 3 ug/mL 50-100 [facility] Laboratory - CoagulationOrde red By: Carlos Cavazos on 06-06-2023 PT Coag (PPP) [Time] 30.5 s 11.7-14.9 [facility] Platelet poor plasma interna tional normalized ratio (INR)Ordered By: Carlos Cavazos on 06-06-2023 INR Coag (PPP) [Relative time] 2.9 {INR} [facility] International normalized rat io (INR) calculationOrdered By: Carlos Cavazos on 05-23-2023 INR Coag (PPP) [Relative time] 2.6 {INR} [facility] Laboratory - CoagulationOrde red By: Carlos Cavazos on 05-23-2023 PT Coag (PPP) [Time] 27.7 s 11.7-14.9 [facility] Laboratory - CoagulationOrde red By: Carlos Cavazos on 05-09-2023 PT Coag (PPP) [Time] 24.1 s 11.7-14.9 [facility] Whole blood international no rmalized ratio (INR)Ordered By: Carlos Cavazos on 05-09-2023 INR Coag (Bld) [Relative time] 2.1 {INR} [facility] Laboratory - CoagulationOrde red By: Carlos Cavazos on 04-23-2023 PT Coag (PPP) [Time] 26.4 s 11.7-14.9 [facility] Whole blood international no rmalized ratio (INR)Ordered By: Carlos Cavazos on 04-23-2023 INR Coag (Bld) [Relative time] 2.4 {INR} [facility] INR in Blood by Coagulation assayOrdered By: Carlos Cavazos on 04-09-2023 INR Coag (Bld) [Relative time] 2.1 {INR} [facility] Laboratory - CoagulationOrde red By: Carlos Cavazos on 04-09-2023 PT Coag (PPP) [Time] 23.9 s 11.7-14.9 [facility] INR in Blood by Coagulation assayOrdered By: Carlos Cavazos on 04-02-2023 INR Coag (Bld) [Relative time] 2.2 {INR} [facility] Laboratory - CoagulationOrde red By: Carlos Cavazos on 04-02-2023 PT Coag (PPP) [Time] 24.5 s 11.7-14.9 [facility] INR in Blood by Coagulation assayOrdered By: Carlos Cavazos on 03-26-2023 INR Coag (Bld) [Relative time] 1.7 {INR} [facility] Laboratory - CoagulationOrde red By: Carlos Cavazos on 03-26-2023 PT Coag (PPP) [Time] 19.9 s 11.7-14.9 [facility] INR in Blood by Coagulation assayOrdered By: Carlos Cavazos on 03-22-2023 INR Coag (Bld) [Relative time] 1.3 {INR} [facility] Laboratory - CoagulationOrde red By: Carlos Cvaazos on 03-22-2023 PT Coag (PPP) [Time] 16.4 s 11.7-14.9 [facility] INR in Blood by Coagulation assayOrdered By: Carlos Cavazos on 03-08-2023 INR Coag (Bld) [Relative time] 2.0 {INR} [facility] Laboratory - CoagulationOrde red By: Carlos Cavazos on 03-08-2023 PT Coag (PPP) [Time] 22.5 s 11.7-14.9 [facility] Laboratory - CoagulationOrde red By: Carlos Cavazos on 02-22-2023 INR Coag (Bld) [Relative time] 2.2 {INR} [facility] Comment on above: Critical Value > 4.0 Whole blood prothrombin time Ordered By: Carlos Cavazos on 02-22-2023 PT Coag (Bld) [Time] 24.0 s 11.7-14.9 [facility] INR in Blood by Coagulation assayOrdered By: Cliff Bruner on 02-15-2023 INR Coag (Bld) [Relative time] 2.0 {INR} [facility] Laboratory - CoagulationOrde red By: Cliff Bruner on 02-15-2023 PT Coag (PPP) [Time] 22.8 s 11.7-14.9 [facility] INR in Blood by Coagulation assayOrdered By: Carlos Cavazos on 02-08-2023 INR Coag (Bld) [Relative time] 2.1 {INR} [facility] Laboratory - CoagulationOrde red By: Carlos Cavazos on 02-08-2023 PT Coag (PPP) [Time] 23.5 s 11.7-14.9 [facility] INR in Blood by Coagulation assayOrdered By: Carlos Cavazos on 01-31-2023 INR Coag (Bld) [Relative time] 2.0 {INR} [facility] Laboratory - CoagulationOrde red By: Carlos Cavazos on 01-31-2023 PT Coag (PPP) [Time] 22.4 s 11.7-14.9 [facility] Laboratory - CoagulationOrde red By: Carlos Cavazos on 01-29-2023 INR Coag (Bld) [Relative time] 1.8 {INR} [facility] Comment on above: Critical Value > 4.0 Whole blood prothrombin time Ordered By: Carlos Cavazos on 01-29-2023 PT Coag (Bld) [Time] 19.9 s 11.7-14.9 [facility] INR in Blood by Coagulation assayOrdered By: Carlos Cavazos on 01-26-2023 INR Coag (Bld) [Relative time] 1.5 {INR} [facility] Laboratory - CoagulationOrde red By: Carlos Cavazos on 01-26-2023 PT Coag (PPP) [Time] 18.3 s 11.7-14.9 [facility] INR in Blood by Coagulation assayOrdered By: Carlos Cavazos on 01-24-2023 INR Coag (Bld) [Relative time] 1.3 {INR} [facility] Laboratory - CoagulationOrde red By: Carlos Cavazos on 01-24-2023 PT Coag (PPP) [Time] 16.2 s 11.7-14.9 [facility] Basophil percentageOrdered B y: Carlos Cavazos on 01-22-2023 Basophil percentage 0 SEEN /hpf 0-5 [facility] Bilirubin Test strip Ql (U)O rdered By: Carlos Cavazos on 01-22-2023 Bilirubin Ql (U) Negative Negative [facility] Calcium oxalate crystals det ection in urine sediment by light microscopyOrdered By: Carlos Cavazos on 01-22-2023 Calcium oxalate crystals LM Ql (Urine sed) 1+ /hpf [facility] Culture, urineOrdered By: Sharif Crouch on 01-22-2023 Bacteria identified Cx Nom (U) Positive [facility] Ketones Test strip Ql (U)Ord ered By: Carlos Cavazos on 01-22-2023 Ketones Ql (U) Negative Negative [facility] Mucus LM Ql (Urine sed)Order ed By: Carlos Cavazos on 01-22-2023 Mucus Ql (Urine sed) 1+ /hpf [facility] Nitrite Test strip Ql (U)Ord ered By: Carlos Cavazos on 01-22-2023 Nitrite Ql (U) Negative Negative [facility] Protein Test strip Ql (U)Ord ered By: Carlos Cavazos on 01-22-2023 Protein Ql (U) Negative Negative [facility] Squamous epithelial cells de tection in urine sediment by light microscopyOrdered By: Carlos Cavazos on 01-22-2023 Epithelial cells.squamous LM Ql (Urine sed) 0 SEEN /hpf 0-5 [facility] Urine blood detectionOrdered By: Carlos Cavazos on 01-22-2023 RBC Ql (U) Negative Negative [facility] RBC Ql (U) 0 SEEN /hpf 0-5 [facility] Urine clarityOrdered By: Ted Cavazos on 01-22-2023 Clarity (U) Sl. Cloudy Clear [facility] Urine color determinationOrd ered By: Carlos Cavazos on 01-22-2023 Color (U) Yellow Yellow [facility] Urine glucose detectionOrder ed By: Carlos Cavazos on 01-22-2023 Glucose Ql (U) Normal mg/dl Normal [facility] Urine leukocyte esterase det ection by dipstickOrdered By: Carlos Cavazos on 01-22-2023 Leukocyte esterase Test strip Ql (U) Negative Negative [facility] Urine pHOrdered By: Carlos flores on 01-22-2023 pH (U) 5.0 [pH] 5.0 - 8.0 [facility] Urine sediment bacteria coun t by microscopy (number/high power field)Ordered By: Carlos Cavazos on 01-22-2023 Bacteria LM.HPF (Urine sed) [#/Area] 2 /[HPF] None Seen [facility] Urine specific gravity measu rementOrdered By: Carlos Cavazos on 01-22-2023 Specific gravity (U) [Rel density] 1.025 1.002-1.030 [facility] Urobilinogen Auto test strip Ql (U)Ordered By: Carlos Cavazos on 01-22-2023 Urobilinogen Ql (U) Normal mg/dl Normal [facility] INR in Blood by Coagulation assayOrdered By: Carlos Cavazos on 01-10-2023 INR Coag (Bld) [Relative time] 2.0 {INR} [facility] Laboratory - CoagulationOrde red By: Carlos Cavazos on 01-10-2023 PT Coag (PPP) [Time] 22.6 s 11.7-14.9 [facility] INR in Blood by Coagulation assayOrdered By: Carlos Cavazos on 12-27-2022 INR Coag (Bld) [Relative time] 2.1 {INR} [facility] Laboratory - CoagulationOrde red By: Carlos Cavazos on 12-27-2022 PT Coag (PPP) [Time] 24.1 s 11.7-14.9 [facility] INR in Blood by Coagulation assayOrdered By: Carlos Cavazos on 12-21-2022 INR Coag (Bld) [Relative time] 2.4 {INR} [facility] Laboratory - CoagulationOrde red By: Carlos Cavazos on 12-21-2022 PT Coag (PPP) [Time] 26.7 s 11.7-14.9 [facility] Laboratory - CoagulationOrde red By: Carlos Cavazos on 12-14-2022 INR Coag (Bld) [Relative time] 2.3 {INR} [facility] Comment on above: Critical Value > 4.0 Whole blood prothrombin time Ordered By: Carlos Cavazos on 12-14-2022 PT Coag (Bld) [Time] 25.2 s 11.7-14.9 [facility] Laboratory - CoagulationOrde red By: Carlos Cavazos on 12-07-2022 INR Coag (Bld) [Relative time] 2.5 {INR} [facility] Comment on above: Critical Value > 4.0 Whole blood prothrombin time Ordered By: Carlos Cavazos on 12-07-2022 PT Coag (Bld) [Time] 26.9 s 11.7-14.9 [facility] Amorphous sediment detection in urine sediment by light microscopyOrdered By: Carlos Cavazos on 11-24-2022 Amorphous sediment LM Ql (Urine sed) 1+ [facility] Basophil percentageOrdered B y: Carlos Cavazos on 11-24-2022 Basophil percentage 0 SEEN /hpf 0-5 [facility] Bilirubin [Mass/Vol] 0.30 mg/dL 0.20-1.00 [facility] Comment on above: For patients on eltr ombopag therapy, use of Dimension [place] TBIL is not recommended. Chloride [Moles/Vol] 107 mmol/L 98-107 [facility] Glucose [Mass/Vol] 95 mg/dL 74-106 [facility] Potassium [Moles/Vol] 4.2 mmol/L 3.5-5.1 [facility] Protein [Mass/Vol] 6.9 g/dL 6.4-8.2 [facility] Sodium [Moles/Vol] 138 mmol/L 136-145 [facility] WBC (Bld) [#/Vol] 10.4 10*3/uL 4.4-11.0 [facility] Bilirubin Test strip Ql (U)O rdered By: Carlos Cavazos on 11-24-2022 Bilirubin Ql (U) Negative Negative [facility] Blood erythrocytes count (nu mber/volume)Ordered By: Carlos Cavazos on 11-24-2022 RBC (Bld) [#/Vol] 4.44 10*6/uL 4.6-6.2 [facility] Blood hemoglobin measurement (mass/volume)Ordered By: Carlos Cavazos on 11-24-2022 Hemoglobin (Bld) [Mass/Vol] 11.8 g/dL 13.0-16.5 [facility] Blood platelet mean volumeOr dered By: Carlos Cavazos on 11-24-2022 Platelet mean volume (Bld) [Entitic vol] 9.7 fL 6.2-12.0 [facility] Calcium oxalate crystals det ection in urine sediment by light microscopyOrdered By: Carlos Cavazos on 11-24-2022 Calcium oxalate crystals LM Ql (Urine sed) RARE /hpf [facility] Culture, urineOrdered By: Sharif Crouch on 11-24-2022 Bacteria identified Cx Nom (U) Positive [facility] Determination of erythrocyte mean corpuscular volume (MCV)Ordered By: Carlos Cavazos on 11-24-2022 MCV (RBC) [Entitic vol] 84.7 fL 80-94 [facility] Hematocrit Auto (Bld) [Volum e fraction]Ordered By: Carlos Cavazos on 11-24-2022 Hematocrit (Bld) [Volume fraction] 37.6 % 40-54 [facility] Ketones Test strip Ql (U)Ord ered By: Carlos Cavazos on 11-24-2022 Ketones Ql (U) Negative Negative [facility] Laboratory - Chemistry and C hemistry - challengeOrdered By: Carlos Cavazos on 11-24-2022 ALP [Catalytic activity/Vol] 103 U/L 45-117 [facility] ALT [Catalytic activity/Vol] 14 U/L 16-61 [facility] CO2 [Moles/Vol] 26.0 mmol/L 21.0-32.0 [facility] Globulin (S) [Mass/Vol] 4.0 g/dL 2.2-4.2 [facility] Urea nitrogen/Creatinine [Mass ratio] 24.1 mg/mg 10-20 [facility] Laboratory - Hematology and Cell countsOrdered By: Carlos Cavazos on 11-24-2022 Erythrocyte distribution width (RBC) [Entitic vol] 49.4 fL 35.1-43.9 [facility] Erythrocyte distribution width (RBC) [Ratio] 16.0 % 11.6-14.6 [facility] MCH (RBC) [Entitic mass] 26.6 pg 27.0-32.0 [facility] MCHC Auto (RBC) [Mass/Vol]Or dered By: Carlos Cavazos on 11-24-2022 MCHC (RBC) [Mass/Vol] 31.4 g/dL 32-36 [facility] Mucus LM Ql (Urine sed)Order ed By: Carlos Cavazos on 11-24-2022 Mucus Ql (Urine sed) 0 SEEN /hpf [facility] Nitrite Test strip Ql (U)Ord ered By: Carlos Cavazos on 11-24-2022 Nitrite Ql (U) Negative Negative [facility] No Panel InformationOrdered By: Carlos Cavazos on 11-24-2022 Estimated GFR (MDRD) Amer 118 mL/min >60 [facility] Comment on above: GFR Calc Estimated GFR (MDRD) Non-Af Amer 97 mL/min >60 [facility] Comment on above: Non- GFR Calc Platelets bldOrdered By: Ted Cavazos on 11-24-2022 Platelets (Bld) [#/Vol] 309 10*3/uL 150-450 [facility] Protein Test strip Ql (U)Ord ered By: Carlos Cavazos on 11-24-2022 Protein Ql (U) Negative Negative [facility] Serum or plasma albumin oarl urement (mass/volume)Ordered By: Carlos Cavazos on 11-24-2022 Albumin [Mass/Vol] 2.9 g/dL 3.2-5.0 [facility] Serum or plasma albumin/glob ulin mass ratioOrdered By: Carlos Cavazos on 11-24-2022 Albumin/Globulin [Mass ratio] 0.7 {ratio} 0.9-2.4 [facility] Serum or plasma calcium oral urement (mass/volume)Ordered By: Carlos Cavazos on 11-24-2022 Calcium [Mass/Vol] 8.7 mg/dL 8.5-10.1 [facility] Serum or plasma creatinine m easurement (mass/volume)Ordered By: Carlos Cavazos on 11-24-2022 Creatinine [Mass/Vol] 0.83 mg/dL 0.70-1.30 [facility] Comment on above: The validity of the calculated GFR & GFRAA in patients over 70 years has not been determined. Clinical correlation is essential. Serum or plasma urea nitroge n measurement (mass/volume)Ordered By: Carlos Cavazos on 11-24-2022 Urea nitrogen [Mass/Vol] 20 mg/dL 7-18 [facility] Squamous epithelial cells de tection in urine sediment by light microscopyOrdered By: Carlos Cavazos on 11-24-2022 Epithelial cells.squamous LM Ql (Urine sed) 0 SEEN /hpf 0-5 [facility] Thin prep Papanicolaou smear with manual screeningOrdered By: Carlos Cavazos on 11-24-2022 Thin prep Papanicolaou smear with manual screening 10 U/L 15-37 [facility] Thin prep Papanicolaou smear with manual screening 5 5-15 [facility] Urine blood detectionOrdered By: Carlos Cavazos on 11-24-2022 RBC Ql (U) Negative Negative [facility] RBC Ql (U) 0 SEEN /hpf 0-5 [facility] Urine clarityOrdered By: Ted Cavazos on 11-24-2022 Clarity (U) Clear Clear [facility] Urine color determinationOrd ered By: Carlos Cavazos on 11-24-2022 Color (U) Yellow Yellow [facility] Urine glucose detectionOrder ed By: Carlos Cavazos on 11-24-2022 Glucose Ql (U) Normal mg/dl Normal [facility] Urine leukocyte esterase det ection by dipstickOrdered By: Carlos Cavazos on 11-24-2022 Leukocyte esterase Test strip Ql (U) Negative Negative [facility] Urine pHOrdered By: Carlos flores on 11-24-2022 pH (U) 7.0 [pH] 5.0 - 8.0 [facility] Urine sediment bacteria coun t by microscopy (number/high power field)Ordered By: Carlos Cavazos on 11-24-2022 Bacteria LM.HPF (Urine sed) [#/Area] 0 /[HPF] None Seen [facility] Urine specific gravity measu rementOrdered By: Carlos Cavazos on 11-24-2022 Specific gravity (U) [Rel density] 1.010 1.002-1.030 [facility] Urobilinogen Auto test strip Ql (U)Ordered By: Carlos Cavazos on 11-24-2022 Urobilinogen Ql (U) Normal mg/dl Normal [facility] Laboratory - CoagulationOrde red By: Carlos Cavazos on 11-23-2022 INR Coag (Bld) [Relative time] 2.2 {INR} [facility] Comment on above: Critical Value > 4.0 Whole blood prothrombin time Ordered By: Carlos Cavazos on 11-23-2022 PT Coag (Bld) [Time] 24.5 s 11.7-14.9 [facility] Basophil percentageOrdered B y: Carlos Cavazos on 11-22-2022 Chloride [Moles/Vol] 105 mmol/L 98-107 [facility] Glucose [Mass/Vol] 91 mg/dL 74-106 [facility] Potassium [Moles/Vol] 4.1 mmol/L 3.5-5.1 [facility] Sodium [Moles/Vol] 138 mmol/L 136-145 [facility] WBC (Bld) [#/Vol] 12.0 10*3/uL 4.4-11.0 [facility] Blood erythrocytes count (nu mber/volume)Ordered By: Carlos Cavazos on 11-22-2022 RBC (Bld) [#/Vol] 4.65 10*6/uL 4.6-6.2 [facility] Blood hemoglobin measurement (mass/volume)Ordered By: Carlos Cavazos on 11-22-2022 Hemoglobin (Bld) [Mass/Vol] 12.4 g/dL 13.0-16.5 [facility] Blood platelet mean volumeOr dered By: Carlos Cavazos on 11-22-2022 Platelet mean volume (Bld) [Entitic vol] 10.3 fL 6.2-12.0 [facility] Determination of erythrocyte mean corpuscular volume (MCV)Ordered By: Carlos Cavazos on 11-22-2022 MCV (RBC) [Entitic vol] 86.0 fL 80-94 [facility] Hematocrit Auto (Bld) [Volum e fraction]Ordered By: Carlos Cavazos on 11-22-2022 Hematocrit (Bld) [Volume fraction] 40.0 % 40-54 [facility] Laboratory - Chemistry and C hemistry - challengeOrdered By: Carlos Cavazos on 11-22-2022 CO2 [Moles/Vol] 25.0 mmol/L 21.0-32.0 [facility] Urea nitrogen/Creatinine [Mass ratio] 23.6 mg/mg 10-20 [facility] Laboratory - Hematology and Cell countsOrdered By: Carlos Cavazos on 11-22-2022 Erythrocyte distribution width (RBC) [Entitic vol] 50.0 fL 35.1-43.9 [facility] Erythrocyte distribution width (RBC) [Ratio] 15.9 % 11.6-14.6 [facility] MCH (RBC) [Entitic mass] 26.7 pg 27.0-32.0 [facility] MCHC Auto (RBC) [Mass/Vol]Or dered By: Carlos Cavazos on 11-22-2022 MCHC (RBC) [Mass/Vol] 31.0 g/dL 32-36 [facility] No Panel InformationOrdered By: Carlos Cavazos on 11-22-2022 Estimated GFR (MDRD) Amer 115 mL/min >60 [facility] Comment on above: GFR Calc Estimated GFR (MDRD) Non-Af Amer 95 mL/min >60 [facility] Comment on above: Non- GFR Calc Platelets bldOrdered By: Pet er Katsaros on 11-22-2022 Platelets (Bld) [#/Vol] 320 10*3/uL 150-450 [facility] Serum or plasma calcium oral urement (mass/volume)Ordered By: Carlos Cavazos on 11-22-2022 Calcium [Mass/Vol] 8.7 mg/dL 8.5-10.1 [facility] Serum or plasma creatinine m easurement (mass/volume)Ordered By: Carlos Cavazos on 11-22-2022 Creatinine [Mass/Vol] 0.85 mg/dL 0.70-1.30 [facility] Comment on above: The validity of the calculated GFR & GFRAA in patients over 70 years has not been determined. Clinical correlation is essential. Serum or plasma urea nitroge n measurement (mass/volume)Ordered By: Carlos Cavazos on 11-22-2022 Urea nitrogen [Mass/Vol] 20 mg/dL 7-18 [facility] Thin prep Papanicolaou smear with manual screeningOrdered By: Carlos Cavazos on 11-22-2022 Thin prep Papanicolaou smear with manual screening 8 5-15 [facility] [facility] - CoagulationOrde red By: Carlos Cavazos on 11-09-2022 INR Coag (Bld) [Relative time] 2.1 {INR} [facility] Comment on above: Critical Value > 4.0 Whole blood prothrombin time Ordered By: Carlos Cavazos on 11-09-2022 PT Coag (Bld) [Time] 22.6 s 11.7-14.9 [facility] - CoagulationOrde red By: Carlos Cavazos on 10-26-2022 INR Coag (Bld) [Relative time] 2.6 {INR} [facility] Comment on above: Critical Value > 4.0 Whole blood prothrombin time Ordered By: Carlos Cavazos on 10-26-2022 PT Coag (Bld) [Time] 28.5 s 11.7-14.9 [facility] - CoagulationOrde red By: Carlos Cavazos on 10-12-2022 INR Coag (Bld) [Relative time] 2.4 {INR} [facility] Comment on above: Critical Value > 4.0 Whole blood prothrombin time Ordered By: Carlos Cavazos on 10-12-2022 PT Coag (Bld) [Time] 26.4 s 11.7-14.9 [facility] - CoagulationOrde red By: Carlos Cavazos on 10-05-2022 INR Coag (Bld) [Relative time] 2.6 {INR} [facility] Comment on above: Critical Value > 4.0 Whole blood prothrombin time Ordered By: Carlos Cavazos on 10-05-2022 PT Coag (Bld) [Time] 28.0 s 11.7-14.9 [facility] - CoagulationOrde red By: Carlos Cavazos on 09-28-2022 INR Coag (Bld) [Relative time] 2.7 {INR} [facility] Comment on above: Critical Value > 4.0 Whole blood prothrombin time Ordered By: Carlos Cavazos on 09-28-2022 PT Coag (Bld) [Time] 28.9 s 11.7-14.9 [facility] - CoagulationOrde red By: Carlos Cavazos on 09-14-2022 INR Coag (Bld) [Relative time] 2.5 {INR} [facility] Comment on above: Critical Value > 4.0 Whole blood prothrombin time Ordered By: Carlos Cavazos on 09-14-2022 PT Coag (Bld) [Time] 27.4 s 11.7-14.9 [facility] - CoagulationOrde red By: Carlos Cavazos on 08-31-2022 INR Coag (Bld) [Relative time] 2.3 {INR} [facility] Comment on above: Critical Value > 4.0 Whole blood prothrombin time Ordered By: Carlos Cavazos on 08-31-2022 PT Coag (Bld) [Time] 25.4 s 11.7-14.9 [facility] Basophil percentageOrdered B y: Carlos Cavazos on 08-23-2022 Chloride [Moles/Vol] 108 mmol/L 98-107 [facility] Glucose [Mass/Vol] 86 mg/dL 74-106 [facility] Potassium [Moles/Vol] 4.3 mmol/L 3.5-5.1 [facility] Sodium [Moles/Vol] 136 mmol/L 136-145 [facility] WBC (Bld) [#/Vol] 10.0 10*3/uL 4.4-11.0 [facility] Blood erythrocytes count (nu mber/volume)Ordered By: Carlos Cavazos on 08-23-2022 RBC (Bld) [#/Vol] 4.77 10*6/uL 4.6-6.2 [facility] Blood hemoglobin measurement (mass/volume)Ordered By: Carlos Cavazos on 08-23-2022 Hemoglobin (Bld) [Mass/Vol] 12.5 g/dL 13.0-16.5 [facility] Blood platelet mean volumeOr dered By: Carlos Cavazos on 08-23-2022 Platelet mean volume (Bld) [Entitic vol] 11.0 fL 6.2-12.0 [facility] Determination of erythrocyte mean corpuscular volume (MCV)Ordered By: Carlos Cavazos on 08-23-2022 MCV (RBC) [Entitic vol] 84.3 fL 80-94 [facility] Hematocrit Auto (Bld) [Volum e fraction]Ordered By: Carlos Cavazos on 08-23-2022 Hematocrit (Bld) [Volume fraction] 40.2 % 40-54 [facility] Laboratory - Chemistry and C hemistry - challengeOrdered By: Carlos Cavazos on 08-23-2022 CO2 [Moles/Vol] 24.0 mmol/L 21.0-32.0 [facility] Urea nitrogen/Creatinine [Mass ratio] 22.8 mg/mg 10-20 [facility] Laboratory - Hematology and Cell countsOrdered By: Carlos Cavazos on 08-23-2022 Erythrocyte distribution width (RBC) [Entitic vol] 49.3 fL 35.1-43.9 [facility] Erythrocyte distribution width (RBC) [Ratio] 16.0 % 11.6-14.6 [facility] MCH (RBC) [Entitic mass] 26.2 pg 27.0-32.0 [facility] MCHC Auto (RBC) [Mass/Vol]Or dered By: Carlos Cavazos on 08-23-2022 MCHC (RBC) [Mass/Vol] 31.1 g/dL 32-36 [facility] No Panel InformationOrdered By: Carlos Cavazos on 08-23-2022 Estimated GFR (MDRD) Amer 134 mL/min >60 [facility] Comment on above: GFR Calc Estimated GFR (MDRD) Non-Af Amer 110 mL/min >60 [facility] Comment on above: Non- GFR Calc Platelets bldOrdered By: Pet er Kenny on 08-23-2022 Platelets (Bld) [#/Vol] 268 10*3/uL 150-450 [facility] Serum or plasma calcium oral urement (mass/volume)Ordered By: Carlos Cavazos on 08-23-2022 Calcium [Mass/Vol] 9.1 mg/dL 8.5-10.1 [facility] Serum or plasma creatinine m easurement (mass/volume)Ordered By: Carlos Cavazos on 08-23-2022 Creatinine [Mass/Vol] 0.74 mg/dL 0.70-1.30 [facility] Comment on above: The validity of the calculated GFR & GFRAA in patients over 70 years has not been determined. Clinical correlation is essential. Serum or plasma urea nitroge n measurement (mass/volume)Ordered By: Carlos Cavazos on 08-23-2022 Urea nitrogen [Mass/Vol] 17 mg/dL 7-18 [facility] Thin prep Papanicolaou smear with manual screeningOrdered By: Carlos Cavazos on 08-23-2022 Thin prep Papanicolaou smear with manual screening 4 5-15 [facility] Laboratory - CoagulationOrde red By: Carlos Cavazos on 08-17-2022 INR Coag (Bld) [Relative time] 2.8 {INR} [facility] Comment on above: Critical Value > 4.0 Whole blood prothrombin time Ordered By: Carlos Cavazos on 08-17-2022 PT Coag (Bld) [Time] 29.6 s 11.7-14.9 [facility] - CoagulationOrde red By: Carlos Cavazos on 08-14-2022 INR Coag (Bld) [Relative time] 3.9 {INR} [facility] Comment on above: Critical Value > 4.0 Whole blood prothrombin time Ordered By: Carlos Cavazos on 08-14-2022 PT Coag (Bld) [Time] 40.6 s 11.7-14.9 [facility] - CoagulationOrde red By: Carlos Cavazos on 07-31-2022 INR Coag (Bld) [Relative time] 2.5 {INR} [facility] Comment on above: Critical Value > 4.0 Whole blood prothrombin time Ordered By: Carlos Cavazos on 07-31-2022 PT Coag (Bld) [Time] 26.8 s 11.7-14.9 [facility] INR in Blood by Coagulation assayOrdered By: Carlos Cavazos on 07-24-2022 INR Coag (Bld) [Relative time] 2.3 {INR} [facility] Laboratory - CoagulationOrde red By: Carlos Cavazos on 07-24-2022 PT Coag (PPP) [Time] 24.7 s 11.7-14.9 [facility] - CoagulationOrde red By: Carlos Cavazos on 07-20-2022 INR Coag (Bld) [Relative time] 1.9 {INR} [facility] Comment on above: Critical Value > 4.0 Whole blood prothrombin time Ordered By: Carlos Cavazos on 07-20-2022 PT Coag (Bld) [Time] 20.6 s 11.7-14.9 [facility] - CoagulationOrde red By: Carlos Cavazos on 07-17-2022 INR Coag (Bld) [Relative time] 1.3 {INR} [facility] Comment on above: Critical Value > 4.0 Whole blood prothrombin time Ordered By: Carlos Cavazos on 07-17-2022 PT Coag (Bld) [Time] 15.9 s 11.7-14.9 [facility] Basophil percentageOrdered B y: Carlos Cavazos on 07-11-2022 Chloride [Moles/Vol] 105 mmol/L 98-107 [facility] Glucose [Mass/Vol] 97 mg/dL 74-106 [facility] Potassium [Moles/Vol] 3.9 mmol/L 3.5-5.1 [facility] Sodium [Moles/Vol] 140 mmol/L 136-145 [facility] WBC (Bld) [#/Vol] 9.4 10*3/uL 4.4-11.0 [facility] Blood erythrocytes count (nu mber/volume)Ordered By: Carlos Cavazos on 07-11-2022 RBC (Bld) [#/Vol] 4.66 10*6/uL 4.6-6.2 [facility] Blood hemoglobin measurement (mass/volume)Ordered By: Carlos Cavazos on 07-11-2022 Hemoglobin (Bld) [Mass/Vol] 12.0 g/dL 13.0-16.5 [facility] Blood platelet mean volumeOr dered By: Carlos Cavazos on 07-11-2022 Platelet mean volume (Bld) [Entitic vol] 10.4 fL 6.2-12.0 [facility] Determination of erythrocyte mean corpuscular volume (MCV)Ordered By: Carlos Cavazos on 07-11-2022 MCV (RBC) [Entitic vol] 83.7 fL 80-94 [facility] Hematocrit Auto (Bld) [Volum e fraction]Ordered By: Carlos Cavazos on 07-11-2022 Hematocrit (Bld) [Volume fraction] 39.0 % 40-54 [facility] Laboratory - Chemistry and C hemistry - challengeOrdered By: Carlos Cavazos on 07-11-2022 CO2 [Moles/Vol] 28.0 mmol/L 21.0-32.0 [facility] Urea nitrogen/Creatinine [Mass ratio] 23.0 mg/mg 10-20 [facility] Laboratory - Hematology and Cell countsOrdered By: Carlos Cavazos on 07-11-2022 Erythrocyte distribution width (RBC) [Entitic vol] 51.0 fL 35.1-43.9 [facility] Erythrocyte distribution width (RBC) [Ratio] 16.8 % 11.6-14.6 [facility] MCH (RBC) [Entitic mass] 25.8 pg 27.0-32.0 [facility] MCHC Auto (RBC) [Mass/Vol]Or dered By: Carlos Cavazos on 07-11-2022 MCHC (RBC) [Mass/Vol] 30.8 g/dL 32-36 [facility] No Panel InformationOrdered By: Carlos Cavazos on 07-11-2022 Estimated GFR (MDRD) Amer 126 mL/min >60 [facility] Comment on above: GFR Calc Estimated GFR (MDRD) Non-Af Amer 104 mL/min >60 [facility] Comment on above: Non- GFR Calc Platelets bldOrdered By: Ted Cavazos on 07-11-2022 Platelets (Bld) [#/Vol] 291 10*3/uL 150-450 [facility] Serum or plasma calcium oral urement (mass/volume)Ordered By: Carlos Cavazos on 07-11-2022 Calcium [Mass/Vol] 9.2 mg/dL 8.5-10.1 [facility] Serum or plasma creatinine m easurement (mass/volume)Ordered By: Carlos Cavazos on 07-11-2022 Creatinine [Mass/Vol] 0.78 mg/dL 0.70-1.30 [facility] Comment on above: The validity of the calculated GFR & GFRAA in patients over 70 years has not been determined. Clinical correlation is essential. Serum or plasma urea nitroge n measurement (mass/volume)Ordered By: Carlos Cavazos on 07-11-2022 Urea nitrogen [Mass/Vol] 18 mg/dL 7-18 [facility] Thin prep Papanicolaou smear with manual screeningOrdered By: Carlos Cavazos on 07-11-2022 Thin prep Papanicolaou smear with manual screening 7 5-15 [facility] Laboratory - CoagulationOrde red By: Carlos Cavazos on 07-10-2022 INR Coag (Bld) [Relative time] 1.8 {INR} [facility] Comment on above: Critical Value > 4.0 Whole blood prothrombin time Ordered By: Carlos Cavazos on 07-10-2022 PT Coag (Bld) [Time] 21.0 s 11.7-14.9 [facility] - CoagulationOrde red By: Carlos Cavazos on 07-03-2022 INR Coag (Bld) [Relative time] 1.9 {INR} [facility] Comment on above: Critical Value > 4.0 Whole blood prothrombin time Ordered By: Carlos Cavazos on 07-03-2022 PT Coag (Bld) [Time] 22.7 s 11.7-14.[address] [facility] INR in Blood by Coagulation assayOrdered By: Carlos Cavazos on 06-27-2022 INR Coag (Bld) [Relative time] 2.9 {INR} [facility] Laboratory - CoagulationOrde red By: Carlos Cavazos on 06-27-2022 PT Coag (PPP) [Time] 29.9 s 11.7-14.9 [facility] - CoagulationOrde red By: Carlos Cavazos on 06-13-2022 INR Coag (Bld) [Relative time] 2.1 {INR} [facility] Comment on above: Critical Value > 4.0 Whole blood prothrombin time Ordered By: Carlos Cavazos on 06-13-2022 PT Coag (Bld) [Time] 24.4 s 11.7-14.9 [facility] - CoagulationOrde red By: Carlos Cavazos on 06-06-2022 INR Coag (Bld) [Relative time] 1.5 {INR} [facility] Comment on above: Critical Value > 4.0 Whole blood prothrombin time Ordered By: Carlos Cavazos on 06-06-2022 PT Coag (Bld) [Time] 18.4 s 11.7-14.9 [facility] Basophil percentageOrdered B y: Carlos Cavazos on 05-30-2022 Chloride [Moles/Vol] 105 mmol/L 98-107 [facility] Glucose [Mass/Vol] 95 mg/dL 74-106 [facility] Potassium [Moles/Vol] 3.9 mmol/L 3.5-5.1 [facility] Sodium [Moles/Vol] 140 mmol/L 136-145 [facility] WBC (Bld) [#/Vol] 7.6 10*3/uL 4.4-11.0 [facility] Blood erythrocytes count (nu mber/volume)Ordered By: Carlos Cavazos on 05-30-2022 RBC (Bld) [#/Vol] 4.79 10*6/uL 4.6-6.2 [facility] Blood hemoglobin measurement (mass/volume)Ordered By: Carlos Cavazos on 05-30-2022 Hemoglobin (Bld) [Mass/Vol] 12.1 g/dL 13.0-16.5 [facility] Blood platelet mean volumeOr dered By: Carlos Cavazos on 05-30-2022 Platelet mean volume (Bld) [Entitic vol] 10.4 fL 6.2-12.0 [facility] Determination of erythrocyte mean corpuscular volume (MCV)Ordered By: Carlos Cavazos on 05-30-2022 MCV (RBC) [Entitic vol] 82.5 fL 80-94 [facility] Hematocrit Auto (Bld) [Volum e fraction]Ordered By: Carlos Cavazos on 05-30-2022 Hematocrit (Bld) [Volume fraction] 39.5 % 40-54 [facility] INR in Blood by Coagulation assayOrdered By: Carlos Cavazos on 05-30-2022 INR Coag (Bld) [Relative time] 1.9 {INR} [facility] Laboratory - Chemistry and C hemistry - challengeOrdered By: Carlos Cavazos on 05-30-2022 CO2 [Moles/Vol] 27.0 mmol/L 21.0-32.0 [facility] Urea nitrogen/Creatinine [Mass ratio] 21.4 mg/mg 10-20 [facility] Laboratory - CoagulationOrde red By: Carlos Cavazos on 05-30-2022 PT Coag (PPP) [Time] 21.6 s 11.7-14.9 [facility] Laboratory - Hematology and Cell countsOrdered By: Carlos Cavazos on 05-30-2022 Erythrocyte distribution width (RBC) [Entitic vol] 48.8 fL 35.1-43.9 [facility] Erythrocyte distribution width (RBC) [Ratio] 16.2 % 11.6-14.6 [facility] MCH (RBC) [Entitic mass] 25.3 pg 27.0-32.0 [facility] MCHC Auto (RBC) [Mass/Vol]Or dered By: Carlos Cavazos on 05-30-2022 MCHC (RBC) [Mass/Vol] 30.6 g/dL 32-36 [facility] No Panel InformationOrdered By: Carlos Cavazos on 05-30-2022 Estimated GFR (MDRD) Amer 133 mL/min >60 [facility] Comment on above: GFR Calc Estimated GFR (MDRD) Non-Af Amer 110 mL/min >60 [facility] Comment on above: Non- GFR Calc Platelets bldOrdered By: Ted Cavazos on 05-30-2022 Platelets (Bld) [#/Vol] 308 10*3/uL 150-450 [facility] Serum or plasma calcium oral urement (mass/volume)Ordered By: Carlos Cavazos on 05-30-2022 Calcium [Mass/Vol] 9.1 mg/dL 8.5-10.1 [facility] Serum or plasma creatinine m easurement (mass/volume)Ordered By: Carlos aCvazos on 05-30-2022 Creatinine [Mass/Vol] 0.75 mg/dL 0.70-1.30 [facility] Comment on above: The validity of the calculated GFR & GFRAA in patients over 70 years has not been determined. Clinical correlation is essential. Serum or plasma urea nitroge n measurement (mass/volume)Ordered By: Carlos Cavazos on 05-30-2022 Urea nitrogen [Mass/Vol] 16 mg/dL 7-18 [facility] Thin prep Papanicolaou smear with manual screeningOrdered By: Carlos Cavazos on 05-30-2022 Thin prep Papanicolaou smear with manual screening 8 5-15 [facility] Laboratory - CoagulationOrde red By: Carlos Cavazos on 05-16-2022 INR Coag (Bld) [Relative time] 2.6 {INR} [facility] Comment on above: Critical Value > 4.0 Whole blood prothrombin time Ordered By: Carlos Cavazos on 05-16-2022 PT Coag (Bld) [Time] 29.9 s 11.7-14.9 [facility] - CoagulationOrde red By: Carlos Cavazos on 05-02-2022 INR Coag (Bld) [Relative time] 2.0 {INR} [facility] Comment on above: Critical Value > 4.0 Whole blood prothrombin time Ordered By: Carlos Cavazos on 05-02-2022 PT Coag (Bld) [Time] 23.2 s 11.7-14.9 [facility] - CoagulationOrde red By: Carlos Cavazos on 04-27-2022 INR Coag (Bld) [Relative time] 2.7 {INR} [facility] Comment on above: Critical Value > 4.0 Whole blood prothrombin time Ordered By: Carlos Cavazos on 04-27-2022 PT Coag (Bld) [Time] 31.1 s 11.7-14.9 [facility] - CoagulationOrde red By: Carlos Cavazos on 04-26-2022 INR Coag (Bld) [Relative time] 2.8 {INR} [facility] Comment on above: Critical Value > 4.0 Whole blood prothrombin time Ordered By: Carols Cavazos on 04-26-2022 PT Coag (Bld) [Time] 32.6 s 11.7-14.9 [facility] - CoagulationOrde red By: Carlos Cavazos on 04-11-2022 INR Coag (Bld) [Relative time] 2.9 {INR} [facility] Comment on above: Critical Value > 4.0 Whole blood prothrombin time Ordered By: Carlos Cavazos on 04-11-2022 PT Coag (Bld) [Time] 32.8 s 11.7-14.9 [facility] - CoagulationOrde red By: Carlos Cavazos on 03-28-2022 INR Coag (Bld) [Relative time] 2.1 {INR} [facility] Comment on above: Critical Value > 4.0 Whole blood prothrombin time Ordered By: Carlos Cavazos on 03-28-2022 PT Coag (Bld) [Time] 24.8 s 11.7-14.9 [facility] - CoagulationOrde red By: Carlos Cavazos on 03-23-2022 INR Coag (Bld) [Relative time] 1.7 {INR} [facility] Comment on above: Critical Value > 4.0 Whole blood prothrombin time Ordered By: Carlos Cavazos on 03-23-2022 PT Coag (Bld) [Time] 20.9 s 11.7-14.9 [facility] - CoagulationOrde red By: Carlos Cavazos on 03-16-2022 INR Coag (Bld) [Relative time] 1.7 {INR} [facility] Comment on above: Critical Value > 4.0 Whole blood prothrombin time Ordered By: Carlos Cavazos on 03-16-2022 PT Coag (Bld) [Time] 19.9 s 11.7-14.9 [facility] - CoagulationOrde red By: Carlos Cavazos on 03-09-2022 INR Coag (Bld) [Relative time] 1.8 {INR} [facility] Comment on above: Critical Value > 4.0 Whole blood prothrombin time Ordered By: Carlos Cavazos on 03-09-2022 PT Coag (Bld) [Time] 21.9 s 11.7-14.9 [facility] - CoagulationOrde red By: Carlos Cavazos on 03-06-2022 INR Coag (Bld) [Relative time] 1.7 {INR} [facility] Comment on above: Critical Value > 4.0 Whole blood prothrombin time Ordered By: Carlos Cavazos on 03-06-2022 PT Coag (Bld) [Time] 20.0 s 11.7-14.9 [facility] CBC with Auto Differentialon 03-02-2022 Absolute [...] 14.5 10*3/uL High 3.6 - 10.7 10*3/uL [facility] Performed by [facility], [address] [place] [address] CT HEAD WO CONTRASTon 2021 Patient Name: ANDREW SIFUENTES Computed Tomography ACCESSION EXAM DATE/TIME PROCEDURE ORDERING PROVIDER [id number] 03/02/2022 13:[address] Head or Brain w/o [id number] -LANETTE MUNGUIA Contrast CPT code 86117 Reason For Exam (CT Head or Brain [...] tubes (parent active on the left for BLOW MOLD OPERATOR shunting and disconnected on the right). 2. No definite evidence of acute infarction (MRI more sensitive), mass lesion, nor hemorrhage. Report Dictated on --- Final --- Dictated: 03/02/2022 1:35 pm Dictating Physician: MD GUTIERREZ WILLIAM Signed Date and Time: 03/02/2022 1:39 pm Signed by: MD GUTIERREZ WILLIAM Transcribed Date and Time: 03/02/2022 1:35 [facility] Anant Gutierrez MD - 03/02/2022 Patient Name: ANDREW SIFUENTES Computed Tomography ACCESSION EXAM DATE/TIME PROCEDURE ORDERING PROVIDER [id number] 03/02/2022 13:[address] Head or Brain w/o 370750 -LANETTE MUNGUIA Contrast CPT code 29160 Reason For Exam (CT Head or Brain [...] tubes (parent active on the left for BLOW MOLD OPERATOR shunting and disconnected on the right). [...] Tomography ACCESSION EXAM DATE/TIME PROCEDURE ORDERING PROVIDER [id number] 03/02/2022 13:[address] Head or Brain w/o 888311 -LANETTE MUNGUIA Contrast CPT code 66473 Reason For Exam (CT Head or Brain [...] tubes (parent active on the left for BLOW MOLD OPERATOR shunting and disconnected on the right). [...] Performed By: #### H EMDF PT, CMP3 ####[id number] [place], [place] ALP [Catalytic activity/Vol] 128 U/L High 38-126 [facility] Comment on above: Performed By: #### H EMDF PT, CMP3 ####[id number] [place], [place] ALT [Catalytic activity/Vol] 12 U/L Normal 0-49 [facility] Comment on above: Result Comment: The ALT test is performed by an updated assay method. Please note that the reference intervals have been changed and are now sex specific. Performed By: #### H EMDF PT, CMP3 ####[id number] [place], [place] Anion gap [Moles/Vol] 7 mmol/L Normal 3-13 [facility] Comment on above: Performed By: #### H EMDF, PT, CMP3 ####[id number] [place], [place] AST [Catalytic activity/Vol] 24 U/L Normal 15-46 [facility] Comment on above: Performed By: #### H EMDF, PT, CMP3 ####[id number] [place], [place] Bilirubin [Mass/Vol] 0.4 mg/dL Normal 0.2-1.3 [facility] Comment on above: Performed By: #### H EMDF, PT, CMP3 ####[address] CO2 [Moles/Vol] 27 mmol/L Normal 22-30 [facility] Comment on above: Performed By: #### H CHRISTEL MOTT CMP3 ####[facility] [place] [address] Glucose [Mass/Vol] 109 mg/dL High 70-100 [facility] Comment on above: Performed By: #### H CHRISTEL MOTT CMP3 ####[id number] [place], [place] Protein [Mass/Vol] 8.1 g/dL Normal 6.3-8.2 [facility] Comment on above: Performed By: #### H CHRISTEL MOTT CMP3 ####[id number] [place], [place] Urea nitrogen [Mass/Vol] 22 mg/dL High 7-17 [facility] Comment on above: Performed By: #### H CHRISTEL MOTT CMP3 ####[id number] [place], [place] Creatinine [Mass/Vol] 0.63 mg/dL Normal 0.52-1.25 [facility] Comment on above: Performed By: #### H CHRISTEL MOTT CMP3 ####[id number] [place], [place] eGFR OTHER > 90.0 Normal >60 [...] Performed By: #### H CHRISTEL MOTT CMP3 ####[id number] [place] [address] GFR/1.73 sq M.predicted among blacks MDRD (S/P/Bld) [Vol rate/Area] mL/min/{1.73_m2} Normal >60 [facility] Comment on above: Performed By: #### H TIERA PT, CMP3 ####[address] [address] Albumin [Mass/Vol] 4.1 g/dL Normal 3.5-5.0 [facility] Comment on above: Performed By: #### H CHRISTEL MOTT, CMP3 ####[address] Chloride [Moles/Vol] 106 mmol/L Normal 98-107 [facility] Comment on above: Performed By: #### H TIERA PT, CMP3 ####[address] [address] Potassium [Moles/Vol] 3.7 mmol/L Normal 3.5-5.1 [facility] Comment on above: Performed By: #### H TIERA PT, CMP3 ####[address] [address] Sodium [Moles/Vol] 140 mmol/L Normal 135-145 [facility] Comment on above: Performed By: #### H TIERA PT, CMP3 ####[address] [address] Comprehensive Metabolic Pane kiel 03-02-2022 Albumin [Mass/Vol] 4.1 g/dL 3.5 - 5.0 g/dL [facility] ALP (Bld) [Catalytic activity/Vol] 128 U/L High 38 - 126 U/L [facility] ALT [Catalytic activity/Vol] 12 U/L 0 - 49 U/L [facility] Comment on above: The ALT test is [...] P INF mL/min [facility] EGFR IF NonAfrican Bah[place]ian mL/min 60 - PINF mL/min [facility] Comment [...] - 17 mg/dL [facility] Test Performed by [address] [address] [facility] ED Provider Noteon ED Provider Note [facility] EMERGENCY DEPT EMERGENCY DEPARTMENT ENCOUNTER Pt Name: Andrew Sifuentes Birthdate 1950 Date of evaluation: 03/02/2022 Provider: Lanette Munguia DO CHIEF COMPLAINT Chief Complaint Patient presents with Fall Patient had unwitnessed fall at [facility] landed on butt. Is on thinners, denies LOC, denies head injury has no complaints at this time HISTORY OF PRESENT ILLNESS (Location/Symptom, Timing/Onset, Context/Setting, Quality, Duration, Modifying Factors, Severity) Note limiting factors. I wore a N-95 mask for the entirety of this encounter. Andrew Sifuentes is a 71 y.o. male medical history of hydrocephalus status post BLOW MOLD OPERATOR shunt, history of DVT on Coumadin who presents [facility] the [facility] following mechanical fall. Patient rolled out of bed. Unwitnessed. Found down on ground by nursing staff. Nonambulatory at baseline. Patient reports he did not hit his head. Has no acute complaints. Denies any pain or traumatic injury. Per nursing protocol at group home, sent to emergency department due to unwitnessed [...] Hemorrhoids Hydrocephalus, adult (HCC) Kidney stone Neuropathy BLOW MOLD OPERATOR (ventriculoperitoneal) shunt status SURGICAL HISTORY Past [...] Performed By: #### H EMDF, PT, CMP3 ####[id number] [place] [address] Abs Neutrophile Cnt 10.7 10*3/uL High 1.8-7.0 [facility] Comment on above: Performed By: #### H EMDF, PT, CMP3 ####[facility] [place] [address] Basophils/100 WBC (Bld) 1.1 % Normal 0.0-2.0 [facility] Comment on above: Performed By: #### H EMDF, PT, CMP3 ####[facility] [place] [address] Eosinophils (Bld) [#/Vol] 0.1 10*3/uL Normal 0.0-0.5 [facility] Comment on above: Performed By: #### H EMDF, PT, CMP3 ####[facility] [place] [address] Eosinophils/100 WBC (Bld) 0.5 % Low 1.0-6.0 [facility] Comment on above: Performed By: #### H EMDF, PT, CMP3 ####[facility] [place] [address] Granulocytes/100 WBC (Bld) 73.9 % Normal 40.0-80.0 [facility] Comment on above: Performed By: #### H TIERA PT, CMP3 ####[address] Lymphocytes (Bld) [#/Vol] 3.0 10*3/uL Normal 1.0-4.3 [facility] Comment on above: Performed By: #### H TIERA PT, CMP3 ####[address] Lymphocytes/100 WBC (Bld) 20.6 % Normal 20.0-40.0 [facility] Comment on above: Performed By: #### H TIERA PT, CMP3 ####[address] Monocytes (Bld) [#/Vol] 0.6 10*3/uL Normal 0.0-0.8 [facility] Comment on above: Performed By: #### H TIERA PT, CMP3 ####[address] Monocytes/100 WBC (Bld) 3.9 % Normal 2.0-10.0 [facility] Comment on above: Performed By: #### H TIERA PT, CMP3 ####[address] Platelet mean volume (Bld) [Entitic vol] 8.5 fL Normal 7.4-12.4 [facility] Comment on above: Result Comment: MPV is a calculated measurement using platelet volume ratio. Performed By: #### H EMDF PT, CMP3 ####[address] Platelets (Bld) [#/Vol] 411 10*3/uL Normal 140-440 [facility] Comment on above: Performed By: #### H EMDF PT, CMP3 ####[address] Erythrocyte distribution width (RBC) [Ratio] 17.0 % High 11.5-14.5 [facility] Comment on above: Performed By: #### H TIERA PT, CMP3 ####[address] Hematocrit (Bld) [Volume fraction] 37.4 % Low 40.0-52.0 [facility] Comment on above: Performed By: #### H TIERA PT, CMP3 ####[address] Hemoglobin (Bld) [Mass/Vol] 12.1 g/dL Low 13.0-18.0 [facility] Comment on above: Performed By: #### H TIERA PT, CMP3 ####[address] MCH (RBC) [Entitic mass] 26.2 pg Normal 26.0-34.0 [facility] Comment on above: Performed By: #### H TIERA PT, CMP3 ####[address] MCHC 32.3 % Normal 32.0-36.0 [facility] Comment on above: Performed By: #### H CHRISTEL MOTT, CMP3 ####[address] MCV (RBC) [Entitic vol] 81.1 fL Normal 80.0-98.0 [facility] Comment on above: Performed By: #### H TIEAR PT, CMP3 ####[address] RBC (Bld) [#/Vol] 4.61 10*6/uL Normal 4.40-5.90 [facility] Comment on above: Performed By: #### H TIERA PT, CMP3 ####[address] WBC (Bld) [#/Vol] 14.5 10*3/uL High 3.6-10.7 [facility] Comment on above: Performed By: #### H EMDF, PT, CMP3 ####[id number] [place] [address] Prothrombin Timeon INR 1.9 High 0.9-1.1 Paul [...] prevent Myocardial Infarction Performed By: #### H BIMALF, PT, CMP3 ####[id number] [place], [place] PT Coag (PPP) [Time] 18.9 s High 9.0-12.0 [facility] Comment on above: Result Comment: . Performed By: #### H BIMALF, PT, CMP3 ####[id number] [place], [place] Protime-INRon 03-02-2022 INR Coag (Bld) [Relative time] 1.9 {INR} High [facility] Comment on above: Recommended Anticoag ulant [...] Interpretation and review of laboratory results Abnormal [facility] PT Coag (PPP) [Time] 18.9 s High 9.0 - 12.0 s [facility] Comment on above: . Test Performed by [facility], [address] [place] [address] [facility] Laboratory - CoagulationOrde red By: Carlos Cavazos on 02-20-2022 INR Coag (Bld) [Relative time] 2.6 {INR} [facility] Comment on above: Critical Value > 4.0 Whole blood prothrombin time Ordered By: Carlos Cavazos on 02-20-2022 PT Coag (Bld) [Time] 30.1 s 11.7-14.9 [facility] Laboratory - CoagulationOrde red By: Carlos Cavazos on 02-13-2022 INR Coag (Bld) [Relative time] 2.3 {INR} [facility] Comment on above: Critical Value > 4.0 Whole blood prothrombin time Ordered By: Carlos Cavazos on 02-13-2022 PT Coag (Bld) [Time] 26.7 s 11.7-14.9 [facility] Laboratory - CoagulationOrde red By: Carlos Cavazos on 02-06-2022 INR Coag (Bld) [Relative time] 2.3 {INR} [facility] Comment on above: Critical Value > 4.0 Whole blood prothrombin time Ordered By: Carlos Cavazos on 02-06-2022 PT Coag (Bld) [Time] 26.6 s 11.7-14.9 [facility] Laboratory - Coagulationon 0 01-30-2022 INR Coag (Bld) [Relative time] 1.7 {INR} [facility] Work Phone: Comment on above: Critical Value > 4.0 Whole blood prothrombin time on 01-30-2022 PT Coag (Bld) [Time] 20.1 s 11.7-14.9 [facility] Work Phone: Laboratory - Coagulationon 0 01-26-2022 INR Coag (Bld) [Relative time] 1.8 {INR} [facility] Work Phone: Comment on above: Critical Value > 4.0 Whole blood prothrombin time on 01-26-2022 PT Coag (Bld) [Time] 21.8 s 11.7-14.9 [facility] Work Phone: Laboratory - Coagulationon 0 01-19-2022 INR Coag (Bld) [Relative time] 2.2 {INR} [facility] Work Phone: Comment on above: Critical Value > 4.0 Whole blood prothrombin time on 01-19-2022 PT Coag (Bld) [Time] 25.7 s 11.7-14.9 [facility] Work Phone: INR in Blood by Coagulation assayon 01-10-2022 INR Coag (Bld) [Relative time] 1.8 {INR} [facility] Work Phone: Laboratory - Coagulationon 0 01-10-2022 PT Coag (PPP) [Time] 20.9 s 11.7-14.9 [facility] Work Phone: Basophil percentageon 2021 Chloride [Moles/Vol] 107 mmol/L 98-107 [facility] Work Phone: Glucose [Mass/Vol] 82 mg/dL 74-106 [facility] Work Phone: Potassium [Moles/Vol] 3.4 mmol/L 3.5-5.1 [facility] Work Phone: Sodium [Moles/Vol] 143 mmol/L 136-145 [facility] Work Phone: WBC (Bld) [#/Vol] 10.4 10*3/uL 4.4-11.0 [facility] Work Phone: Blood erythrocytes count (nu mber/volume)on 01-05-2022 RBC (Bld) [#/Vol] 4.27 10*6/uL 4.6-6.2 [facility] Work Phone: Blood hemoglobin measurement (mass/volume)on 01-05-2022 Hemoglobin (Bld) [Mass/Vol] 11.2 g/dL 13.0-16.5 [facility] Work Phone: Blood platelet mean volumeon 01-05-2022 Platelet mean volume (Bld) [Entitic vol] 10.3 fL 6.2-12.0 [facility] Work Phone: Determination of erythrocyte mean corpuscular volume (MCV)on 01-05-2022 MCV (RBC) [Entitic vol] 84.8 fL 80-94 [facility] Work Phone: Hematocrit Auto (Bld) [Volum e fraction]on 01-05-2022 Hematocrit (Bld) [Volume fraction] 36.2 % 40-54 [facility] Work Phone: Laboratory - Chemistry and C hemistry - challengeon 01-05-2022 CO2 [Moles/Vol] 28.0 mmol/L 21.0-32.0 [facility] Work Phone: Urea nitrogen/Creatinine [Mass ratio] 20.0 mg/mg 10-20 [facility] Work Phone: Laboratory - Hematology and Cell countson 01-05-2022 Erythrocyte distribution width (RBC) [Entitic vol] 51.8 fL 35.1-43.9 [facility] Work Phone: Erythrocyte distribution width (RBC) [Ratio] 16.8 % 11.6-14.6 [facility] Work Phone: MCH (RBC) [Entitic mass] 26.2 pg 27.0-32.0 [facility] Work Phone: MCHC Auto (RBC) [Mass/Vol]on 01-05-2022 MCHC (RBC) [Mass/Vol] 30.9 g/dL 32-36 [facility] Work Phone: No Panel Informationon 01-05 Estimated GFR (MDRD) Amer 133 mL/min >60 [facility] Work Phone: Comment on above: GFR Calc Estimated GFR (MDRD) Non-Af Amer 110 mL/min >60 [facility] Work Phone: Comment on above: Non- GFR Calc Platelets bldon 01-05-2022 Platelets (Bld) [#/Vol] 373 10*3/uL 150-450 [facility] Work Phone: Serum or plasma calcium oral urement (mass/volume)on 01-05-2022 Calcium [Mass/Vol] 8.8 mg/dL 8.5-10.1 [facility] Work Phone: Serum or plasma creatinine m easurement (mass/volume)on 01-05-2022 Creatinine [Mass/Vol] 0.75 mg/dL 0.70-1.30 [facility] Work Phone: Comment on above: The validity of the calculated GFR & GFRAA in patients over 70 years has not been determined. Clinical correlation is essential. Serum or plasma urea nitroge n measurement (mass/volume)on 01-05-2022 Urea nitrogen [Mass/Vol] 15 mg/dL 7-18 [facility] Work Phone: Thin prep Papanicolaou smear with manual screeningon 01-05-2022 Thin prep Papanicolaou smear with manual screening 8 5-15 [facility] Work Phone: Laboratory - Coagulationon 0 12-30-2021 INR Coag (Bld) [Relative time] 2.0 {INR} [facility] Work Phone: Comment on above: Critical Value > 4.0 Whole blood prothrombin time on 12-30-2021 PT Coag (Bld) [Time] 23.7 s 11.7-14.9 [facility] Work Phone: Basophil percentageon 2021 Chloride [Moles/Vol] 106 mmol/L 98-107 [facility] Work Phone: Glucose [Mass/Vol] 91 mg/dL 74-106 [facility] Work Phone: Potassium [Moles/Vol] 3.4 mmol/L 3.5-5.1 [facility] Work Phone: Sodium [Moles/Vol] 141 mmol/L 136-145 [facility] Work Phone: WBC (Bld) [#/Vol] 10.2 10*3/uL 4.4-11.0 [facility] Work Phone: Blood erythrocytes count (nu mber/volume)on 12-28-2021 RBC (Bld) [#/Vol] 4.22 10*6/uL 4.6-6.2 [facility] Work Phone: Blood hemoglobin measurement (mass/volume)on 12-28-2021 Hemoglobin (Bld) [Mass/Vol] 11.2 g/dL 13.0-16.5 [facility] Work Phone: Blood platelet mean volumeon 12-28-2021 Platelet mean volume (Bld) [Entitic vol] 10.1 fL 6.2-12.0 [facility] Work Phone: Determination of erythrocyte mean corpuscular volume (MCV)on 12-28-2021 MCV (RBC) [Entitic vol] 82.7 fL 80-94 [facility] Work Phone: Hematocrit Auto (Bld) [Volum e fraction]on 12-28-2021 Hematocrit (Bld) [Volume fraction] 34.9 % 40-54 [facility] Work Phone: Laboratory - Chemistry and C hemistry - challengeon 12-28-2021 CO2 [Moles/Vol] 30.0 mmol/L 21.0-32.0 [facility] Work Phone: Urea nitrogen/Creatinine [Mass ratio] 33.7 mg/mg 10-20 [facility] Work Phone: Laboratory - Hematology and Cell countson 12-28-2021 Erythrocyte distribution width (RBC) [Entitic vol] 49.1 fL 35.1-43.9 [facility] Work Phone: Erythrocyte distribution width (RBC) [Ratio] 16.5 % 11.6-14.6 [facility] Work Phone: MCH (RBC) [Entitic mass] 26.5 pg 27.0-32.0 [facility] Work Phone: MCHC Auto (RBC) [Mass/Vol]on 12-28-2021 MCHC (RBC) [Mass/Vol] 32.1 g/dL 32-36 [facility] Work Phone: No Panel Informationon 12-28 Estimated GFR (MDRD) Amer 174 mL/min >60 [facility] Work Phone: Comment on above: GFR Calc Estimated GFR (MDRD) Non-Af Amer 143 mL/min >60 [facility] Work Phone: Comment on above: Non- GFR Calc Platelets bldon 12-28-2021 Platelets (Bld) [#/Vol] 339 10*3/uL 150-450 [facility] Work Phone: Serum or plasma calcium oral urement (mass/volume)on 12-28-2021 Calcium [Mass/Vol] 8.6 mg/dL 8.5-10.1 [facility] Work Phone: Serum or plasma creatinine m easurement (mass/volume)on 12-28-2021 Creatinine [Mass/Vol] 0.59 mg/dL 0.70-1.30 [facility] Work Phone: Comment on above: The validity of the calculated GFR & GFRAA in patients over 70 years has not been determined. Clinical correlation is essential. Serum or plasma urea nitroge n measurement (mass/volume)on 12-28-2021 Urea nitrogen [Mass/Vol] 20 mg/dL 7-18 [facility] Work Phone: Thin prep Papanicolaou smear with manual screeningon 12-28-2021 Thin prep Papanicolaou smear with manual screening 5 5-15 [facility] Work Phone: CULTURE BLOODon 12-27-2021 Microscopic examination of blood, culture CULTURE BLOOD --> Status: F No growth at 5 days. Normal [employer] Comment on above: Performed By: #### C /BLD #### [employer] [facility] [address] [place] [id number] Laboratory - Coagulationon 0 12-26-2021 INR Coag (Bld) [Relative time] 1.7 {INR} [facility] Work Phone: Comment on above: Critical Value > 4.0 Whole blood prothrombin time on 08-22-2022 PT Coag (Bld) [Time] 20.8 s 11.7-14.9 [facility] Work Phone: Basic Metabolic Panelon 12-05 Calcium [Mass/Vol] 8.8 mg/dL Normal 8.4-10.4 [facility] Comment on above: Performed By: #### C RP2, ESR, HEMDF, BMP3 ####[employer] [place] Anion gap [Moles/Vol] 6 mmol/L Normal 3-13 [facility] Comment on above: Performed By: #### C RP2, ESR, HEMDF, BMP3 ####[employer] [place], [place] CO2 [Moles/Vol] 27 mmol/L Normal 22-30 [facility] Comment on above: Performed By: #### C RP2, ESR, HEMDF, BMP3 ####[employer] [place], [place] Glucose [Mass/Vol] 100 mg/dL Normal 70-100 [facility] Comment on above: Performed By: #### C RP2, ESR, HEMDF, BMP3 ####[employer] [place], [place] Urea nitrogen [Mass/Vol] 18 mg/dL High 7-17 [facility] Comment on above: Performed By: #### C RP2, ESR, HEMDF, BMP3 ####[employer] [place], [place] Creatinine [Mass/Vol] 0.73 mg/dL Normal 0.52-1.25 [facility] Comment on above: Performed By: #### C RP2, ESR, HEMDF, BMP3 ####[employer] [place] eGFR OTHER > 90.0 Normal >60 [...] By: #### C RP2, ESR, HEMDF, BMP3 ####[address] [place] [address] GFR/1.73 sq M.predicted among blacks MDRD (S/P/Bld) [Vol rate/Area] mL/min/{1.73_m2} Normal >60 [facility] Comment on above: Performed By: #### C RP2, ESR, HEMDF, BMP3 ####[address] [place] [address] Potassium [Moles/Vol] 3.7 mmol/L Normal 3.5-5.1 [facility] Comment on above: Performed By: #### C RP2, ESR, HEMDF, BMP3 ####[address] [address] Chloride [Moles/Vol] 106 mmol/L Normal 98-107 [facility] Comment on above: Performed By: #### C RP2, ESR, HEMDF, BMP3 ####[address] [place] [address] Sodium [Moles/Vol] 139 mmol/L Normal 135-145 [facility] Comment on above: Performed By: #### C RP2, ESR, HEMDF, BMP3 ####[address] [place] [address] Anion gap [Moles/Vol] 6 mmol/L 3 - 13 mmol/L [facility] Calcium [Mass/Vol] 8.8 mg/dL 8.4 - 10. 4 mg/dL [facility] Chloride [Moles/Vol] 106 mmol/L 98 - 10 7 mmol/L [facility] CO2 [Moles/Vol] 27 mmol/L 22 - 30 mmol/L [facility] Creatinine [Mass/Vol] 0.73 mg/dL 0.52 - 1.25 mg/dL [facility] eGFR mL/min 60 - P INF mL/min [facility] EGFR IF NonAfrican Bahamian mL/min 60 - PINF mL/min [facility] Comment [...] 7 - 17 mg/dL [facility] Basophil percentageon 12-22- 2021 Basophil percentage 25-50 SEEN /hpf 0-5 [facility] Work Phone: Chloride [Moles/Vol] 106 mmol/L 98-[address] [facility] [facility] Work Phone: Glucose [Mass/Vol] 93 mg/dL 74-106 [facility] Work Phone: Potassium [Moles/Vol] 3.5 mmol/L 3.5-5.1 [facility] [facility] Work Phone: Sodium [Moles/Vol] 140 mmol/L 136-145 [facility] Work Phone: WBC (Bld) [#/Vol] 9.6 10*3/uL 4.4-11.0 [facility] Work Phone: Bilirubin Test strip Ql (U)o n 12-22-2021 Bilirubin Ql (U) Negative Negative [facility] Work Phone: Blood erythrocytes count (nu mber/volume)on 12-22-2021 RBC (Bld) [#/Vol] 4.34 10*6/uL 4.6-6.2 [facility] Work Phone: Blood hemoglobin measurement (mass/volume)on 12-22-2021 Hemoglobin (Bld) [Mass/Vol] 11.5 g/dL 13.0-16.5 [facility] Work Phone: Blood platelet mean volumeon 12-22-2021 Platelet mean volume (Bld) [Entitic vol] 10.8 fL 6.2-12.0 [facility] Work Phone: C-Reactive Proteinon 022 CRP [Mass/Vol] 27.2 mg/L High 0.0-9.9 [facility] Comment on above: Result Comment: . Performed By: #### C RP2, ESR, HEMDF, BMP3 ####[facility] [id number] [place] [address] CRP [Mass/Vol] 27.2 mg/L High 0 - 9.9 mg/L [facility] Comment on above: . CBC with [...] - 10.7 10*3/uL [facility] Test Performed by [facility], [address] [place] [id number] [place] [address] LAB [facility] COVID-19, Flu A/B, and RSV C [facility] 12-22-2021 Influenza A by PCR Not detected [facility] A Influenza B by PCR Not detected [facility] A RSV PCR Not Detected. Expected Result: Not Detected _ Method: Real-time, RT-PCR This assay was developed by [employer] and distributed under an Emergency Use Authorization (EUA) granted by the FDA for the qualitative detection of nucleic acids from SARS-CoV-2, Influenza A, Influenza B, and Respiratory Syncytial Virus. Provider and patient fact sheets can be found at https://www.fda.gov/media /381221/download and https://www.fda.gov/media /911669/download. [facility] SARS-CoV-2 (COVID-19) RNA MEGAN+probe Ql (Unsp spec) Not detected [facility] Test Performed by [facility], [address] [place] [address] LAB [facility] CR Foot Complete 3+ Views [place] 12-22-2021 CR Foot Complete 3+ Views Left Patient Name: ANDREW SIFUENTES Diagnostic Radiology ACCESSION EXAM DATE/TIME PROCEDURE ORDERING PROVIDER [id number] 12/22/2021 00:09 EDT CR Foot Complete 3+ SANDY HIDALGO, TRAVIS Views Left CPT code 95704 Reason For Exam (CR Foot Complete 3+ [...] crystals LM Ql (Urine sed) 1+ /hpf [facility] Work Phone: Determination of erythrocyte mean corpuscular volume (MCV)on 12-22-2021 MCV (RBC) [Entitic vol] 84.3 fL 80-94 [facility] Work Phone: ED Provider Noteon 2 ED Provider Note Emergency Department Encounter [facility] EMERGENCY DEPT Patient: Andrew Sifuentes : 1950 Date of Evaluation: 12/21/2021 ED Supervising Physician: Sharon Gonzalez MD I independently examined and evaluated Andrew Sifuentes. In brief, Andrew Sifuentes is a 71 y.o. male with a past medical history significant for DVTs, malnutrition, pressure ulcers, and hyperlipidemia who presents the emergency department for evaluation for concern for osteomyelitis. Patient has had wound in his leg for a while. According to EMS group home staff completed x-ray of the lower extremity and there was concern for osteomyelitis hence transferring patient to the hospital. Patient states this time the wounds on the left lower extremity for extended period of time. He denies fevers or chills. Patient states group home staff have been taking care of the wound for him. Focused exam: Blood pressure 108/67, pulse 77, temperature 97.9 ?F (36.6 ?C), temperature source Oral, resp. rate 16, height 5' 9 (1.753 m), weight 79.4 kg (175 lb), SpO2 96 %. [id number] in no acute distress. Alert and oriented [...] dictations but occasionally words are mis-transcribed.) Sharon Gonzalez MD Acute Care [facility] Sharon Gonzalez MD 12/22/21 0305 [facility] ED Provider Note [facility] EMERGENCY DEPT EMERGENCY DEPARTMENT ENCOUNTER Pt Name: Andrew Sifuentes Birthdate 1950 Date of evaluation: 12/21/2021 Provider: SANIA Lou CHIEF COMPLAINT Chief Complaint Patient presents with Osteomyelitis Patient from [facility], facility did xrays on left lower leg and and have concerns for possible osteomyelitis A&Ox2 to self and place, stated year 2022 [facility] Miss martini HISTORY OF PRESENT ILLNESS (Location/Symptom, Timing/Onset, Context/Setting, Quality,Duration, Modifying Factors, Severity) Note limiting factors. HPI I have seen this patient With supervising physician Does this patient come from an ECF, SNF, Rehab, Skilled Nursing or other Congregate setting: no (If yes [...] Hemorrhoids Hydrocephalus, adult (HCC) Kidney stone Neuropathy BLOW MOLD OPERATOR (ventriculoperitoneal) shunt status SURGICAL HISTORY Past [...] use: No Sexual activity: Not Currently SCREENINGS [place] Coma Scale Eye Opening: Spontaneous Best Verbal Response: Confused Best Motor Response: Obeys commands [place] Coma Scale Score: 14 Patient symptoms are [...] Hematocrit (Bld) [Volume fraction] 36.6 % 40-54 [facility] Work Phone: Hemogram w/ [employer] 12-22 Abs Baso Cnt 0.1 10*3/uL Normal 0.0-0.2 [facility] Comment on above: Performed By: #### C RP2, ESR, HEMDF, BMP3 ####[facility] [place] [address] Abs Neutrophile Cnt 5.9 10*3/uL Normal 1.8-7.0 [facility] Comment on above: Performed By: #### C RP2, ESR, HEMDF, BMP3 ####[facility] [id number] [place] [address] Basophils/100 WBC (Bld) 0.7 % Normal 0.0-2.0 [facility] Comment on above: Performed By: #### C RP2, ESR, HEMDF, BMP3 ####[facility] [place] [address] Eosinophils (Bld) [#/Vol] 0.2 10*3/uL Normal 0.0-0.5 [facility] Comment on above: Performed By: #### C RP2, ESR, HEMDF, BMP3 ####[address] Eosinophils/100 WBC (Bld) 2.3 % Normal 1.0-6.0 [facility] Comment on above: Performed By: #### C RP2, ESR, HEMDF, BMP3 ####[address] Erythrocyte distribution width (RBC) [Ratio] 17.5 % High 11.5-14.5 [facility] Comment on above: Performed By: #### C RP2, ESR, HEMDF, BMP3 ####[address] Granulocytes/100 WBC (Bld) 57.8 % Normal 40.0-80.0 [facility] [facility] Comment on above: Performed By: #### C RP2, ESR, HEMDF, BMP3 ####[address] Hematocrit (Bld) [Volume fraction] 33.3 % Low 40.0-52.0 [facility] Comment on above: Performed By: #### C RP2, ESR, HEMDF, BMP3 ####[address] Hemoglobin (Bld) [Mass/Vol] 11.0 g/dL Low 13.0-18.0 [facility] Comment on above: Performed By: #### C RP2, ESR, HEMDF, BMP3 ####[address] Lymphocytes (Bld) [#/Vol] 3.3 10*3/uL Normal 1.0-4.3 [facility] Comment on above: Performed By: #### C RP2, ESR, HEMDF, BMP3 ####[address] Lymphocytes/100 WBC (Bld) 33.0 % Normal 20.0-40.0 [facility] Comment on above: Performed By: #### C RP2, ESR, HEMDF, BMP3 ####[address] MCH (RBC) [Entitic mass] 26.5 pg Normal 26.0-34.0 [facility] Comment on above: Performed By: #### C RP2, ESR, HEMDF, BMP3 ####[address] MCHC 33.1 % Normal 32.0-36.0 [facility] Comment on above: Performed By: #### C RP2, ESR, HEMDF, BMP3 ####[id number] [place], [place] MCV (RBC) [Entitic vol] 80.2 fL Normal 80.0-98.0 [facility] Comment on above: Performed By: #### C RP2, ESR, HEMDF, BMP3 ####[address] Monocytes (Bld) [#/Vol] 0.6 10*3/uL Normal 0.0-0.8 [facility] Comment on above: Performed By: #### C RP2, ESR, HEMDF, BMP3 ####[address] Monocytes/100 WBC (Bld) 6.2 % Normal 2.0-10.0 [facility] Comment on above: Performed By: #### C RP2, ESR, HEMDF, BMP3 ####[address] Platelet mean volume (Bld) [Entitic vol] 8.0 fL Normal 7.4-12.4 [facility] Comment on above: Result Comment: MPV is a calculated measurement using platelet volume ratio. Performed By: #### C RP2, ESR, HEMDF, BMP3 ####[address] Platelets (Bld) [#/Vol] 368 10*3/uL Normal 140-440 [facility] Comment on above: Performed By: #### C RP2, ESR, HEMDF, BMP3 ####[facility] [address] [place], [place] RBC (Bld) [#/Vol] 4.15 10*6/uL Low 4.40-5.90 [facility] Comment on above: Performed By: #### C RP2, ESR, HEMDF, BMP3 ####[facility] [address] [place], [place] WBC (Bld) [#/Vol] 10.1 10*3/uL Normal 3.6-10.7 [facility] Comment on above: Performed By: #### C RP2, ESR, HEMDF, BMP3 ####[facility] [address] [place], [place] Ketones Test strip Ql (U)on 12-22-2021 Ketones Ql (U) Negative Negative [facility] Work Phone: Laboratory - Chemistry and C hemistry - challengeon 12-22-2021 CO2 [Moles/Vol] 27.0 mmol/L 21.0-32.0 [facility] Work Phone: Urea nitrogen/Creatinine [Mass ratio] 22.5 mg/mg 10-20 [facility] Work Phone: Laboratory - Hematology and Cell countson 12-22-2021 Erythrocyte distribution width (RBC) [Entitic vol] 49.1 fL 35.1-43.9 [facility] Work Phone: Erythrocyte distribution width (RBC) [Ratio] 16.1 % 11.6-14.6 [facility] Work Phone: MCH (RBC) [Entitic mass] 26.5 pg 27.0-32.0 [facility] Work Phone: MCHC Auto (RBC) [Mass/Vol]on 12-22-2021 MCHC (RBC) [Mass/Vol] 31.4 g/dL 32-36 [facility] Work Phone: Mucus LM Ql (Urine sed)on Mucus Ql (Urine sed) 0 SEEN /hpf [facility] Work Phone: Nitrite Test strip Ql (U)on 12-22-2021 Nitrite Ql (U) Positive Negative [facility] Work Phone: No Panel Informationon 12-22 Estimated GFR (MDRD) Amer 152 mL/min >60 [facility] Work Phone: Comment on above: GFR Calc Estimated GFR (MDRD) Non-Af Amer 125 mL/min >60 [facility] Work Phone: Comment on above: Non- GFR Calc Interpretation and review of laboratory results Abnormal [facility] Test Performed by [address] [address] [facility] Platelets bldon 12-22-2021 Platelets (Bld) [#/Vol] 317 10*3/uL 150-450 [facility] Work Phone: Protein Test strip Ql (U)on 12-22-2021 Protein Ql (U) 30 mg/dl Negative [facility] Work Phone: SARS-CoV-2, Flu A/B and RSVo n 12-22-2021 SARS-CoV-2 (COVID-19) RNA MEGAN+probe Ql (Unsp spec) SARS-CoV-2 --> Status: F Not Detected. Flu A PCR --> Status: F Not Detected. Flu B PCR --> Status: F Not Detected. RSV PCR --> Status: F Not Detected. Expected Result: Not Detected _ Method: Real-time, RT-PCR This assay was developed by [employer] and distributed under an Emergency Use Authorization (EUA) granted by the FDA for the qualitative detection of nucleic acids from SARS-CoV-2, Influenza A, Influenza B, and Respiratory Syncytial Virus. Provider and patient fact sheets can be found at https://www.fda.gov/media /518769/download and https://www.fda.gov/media /432382/download. Expected Result: Not Detected _ Method: Real-time, RT-PCR This assay was developed by [employer] and distributed under an Emergency Use Authorization (EUA) granted by the FDA for the qualitative detection of nucleic acids from SARS-CoV-2, Influenza A, Influenza B, and Respiratory Syncytial Virus. Provider and patient fact sheets can be found at https://www.fda.gov/media /998159/download and https://www.fda.gov/media /248574/download. Normal [facility] Comment on above: Performed By: #### C VFLR ####[id number] [place] [address], [id number] Sed Rateon 12-22-2021 Sed Rate 48 mm/h High 0-10 [facility] Comment on above: Performed By: #### C RP2, ESR, HEMDF, BMP3 ####[id number] [place] [address] Sedimentation Rateon 022 Interpretation and review of laboratory results Abnormal [facility] Sed Rate 48 mm/h High 0 - 10 mm/h [facility] Test Performed by [facility], [facility] [place] [address] [facility] Serum or plasma calcium oral urement (mass/volume)on 12-22-2021 Calcium [Mass/Vol] 8.6 mg/dL 8.5-10.1 [facility] Work Phone: Serum or plasma creatinine m easurement (mass/volume)on 12-22-2021 Creatinine [Mass/Vol] 0.67 mg/dL 0.70-1.30 [facility] Work Phone: Comment on above: The validity of the calculated GFR & GFRAA in patients over 70 years has not been determined. Clinical correlation is essential. Serum or plasma urea nitroge n measurement (mass/volume)on 12-22-2021 Urea nitrogen [Mass/Vol] 15 mg/dL - [facility] Work Phone: Squamous epithelial cells de tection in urine sediment by light microscopyon 12-22-2021 Epithelial cells.squamous LM Ql (Urine sed) 0-5 SEEN /hpf 0-5 [facility] Work Phone: Thin prep Papanicolaou smear with manual screeningon 12-22-2021 Thin prep Papanicolaou smear with manual screening 7 5-15 [facility] Work Phone: Urine blood detectionon 12-05 RBC Ql (U) 150 /ul Negative [facility] Work Phone: RBC Ql (U) 10-25 SEEN /hpf 0-5 [facility] Work Phone: Urine clarityon 12-22-2021 Clarity (U) Sl. Cloudy Clear [facility] Work Phone: Urine color determinationon 12-22-2021 Color (U) Yellow Yellow [facility] Work Phone: Urine glucose detectionon Glucose Ql (U) Normal mg/dl Normal [facility] Work Phone: Urine leukocyte esterase det ection by dipstickon 12-22-2021 Leukocyte esterase Test strip Ql (U) 500 /ul Negative [facility] Work Phone: Urine pHon 12-22-2021 pH (U) 6.0 [pH] 5.0 - 8.0 [facility] Work Phone: Urine sediment bacteria coun t by microscopy (number/high power field)on 12-22-2021 Bacteria LM.HPF (Urine sed) [#/Area] 2 /[HPF] None Seen [facility] Work Phone: Urine specific gravity measu rementon 12-22-2021 Specific gravity (U) [Rel density] 1.020 1.002-1.030 [facility] Work Phone: Urobilinogen Auto test strip Ql (U)on 12-22-2021 Urobilinogen Ql (U) Normal mg/dl Normal [facility] Work Phone: XR FOOT LEFT (MIN 3 VIEWS)on 12-22-2021 Patient Name: ANDREW SIFUENTES Diagnostic Radiology ACCESSION EXAM DATE/TIME PROCEDURE ORDERING PROVIDER [id number] 12/22/2021 00:09 EDT CR Foot Complete 3+ SANDY HIDALGO JOHN M Views Left CPT code 62950 Reason For Exam (CR Foot Complete 3+ [...] JEFFREY Transcribed Date and Time: 12/22/2021 0:21 [facility] Albert Solano MD - 12/22/2021 Patient Name: ANDREW SIFUENTES Diagnostic Radiology ACCESSION EXAM DATE/TIME PROCEDURE ORDERING PROVIDER [id number] 12/22/2021 00:09 EDT CR Foot Complete 3+ SANDY HIDALGO JOHN M Views Left CPT code 31455 Reason For Exam (CR Foot Complete 3+ [...] JEFFREY Transcribed Date and Time: 12/22/2021 0:21 [facility] Work Phone: Radiology Study observation (narrative) [facility] Work Phone: XR FOOT LEFT (MIN 3 VIEWS)Or dered By: Albert Solano on 12-22-2021 [facility] Work Phone: Basophil percentageon 2021 Chloride [Moles/Vol] 103 mmol/L 98-107 [facility] Work Phone: Glucose [Mass/Vol] 92 mg/dL 74-106 [facility] Work Phone: Potassium [Moles/Vol] 3.5 mmol/L 3.5-5.1 [facility] Work Phone: Sodium [Moles/Vol] 138 mmol/L 136-145 [facility] Work Phone: WBC (Bld) [#/Vol] 11.2 10*3/uL 4.4-11.0 [facility] Work Phone: Blood erythrocytes count (nu mber/volume)on 12-19-2021 RBC (Bld) [#/Vol] 4.50 10*6/uL 4.6-6.2 [facility] Work Phone: Blood hemoglobin measurement (mass/volume)on 12-19-2021 Hemoglobin (Bld) [Mass/Vol] 12.2 g/dL 13.0-16.5 [facility] Work Phone: Blood platelet mean volumeon 12-19-2021 Platelet mean volume (Bld) [Entitic vol] 11.3 fL 6.2-12.0 [facility] Work Phone: Determination of erythrocyte mean corpuscular volume (MCV)on 12-19-2021 MCV (RBC) [Entitic vol] 85.6 fL 80-94 [facility] Work Phone: Hematocrit Auto (Bld) [Volum e fraction]on 12-19-2021 Hematocrit (Bld) [Volume fraction] 38.5 % 40-54 [facility] Work Phone: Laboratory - Chemistry and C hemistry - challengeon 12-19-2021 CO2 [Moles/Vol] 30.0 mmol/L 21.0-32.0 [facility] Work Phone: Urea nitrogen/Creatinine [Mass ratio] 27.1 mg/mg 10-20 [facility] Work Phone: Laboratory - Hematology and Cell countson 12-19-2021 Erythrocyte distribution width (RBC) [Entitic vol] 50.5 fL 35.1-43.9 [facility] Work Phone: Erythrocyte distribution width (RBC) [Ratio] 16.0 % 11.6-14.6 [facility] Work Phone: MCH (RBC) [Entitic mass] 27.1 pg 27.0-32.0 [facility] Work Phone: MCHC Auto (RBC) [Mass/Vol]on 12-19-2021 MCHC (RBC) [Mass/Vol] 31.7 g/dL 32-36 [facility] Work Phone: No Panel Informationon 12-19 Estimated GFR (MDRD) Amer 153 mL/min >60 [facility] Work Phone: Comment on above: GFR Calc Estimated GFR (MDRD) Non-Af Amer 126 mL/min >60 [facility] Work Phone: Comment on above: Non- GFR Calc Platelets bldon 12-19-2021 Platelets (Bld) [#/Vol] 363 10*3/uL 150-450 [facility] Work Phone: Serum or plasma calcium oral urement (mass/volume)on 12-19-2021 Calcium [Mass/Vol] 9.5 mg/dL 8.5-10.1 [facility] Work Phone: Serum or plasma creatinine m easurement (mass/volume)on 12-19-2021 Creatinine [Mass/Vol] 0.66 mg/dL 0.70-1.30 [facility] Work Phone: Comment on above: The validity of the calculated GFR & GFRAA in patients over 70 years has not been determined. Clinical correlation is essential. Serum or plasma urea nitroge n measurement (mass/volume)on 12-19-2021 Urea nitrogen [Mass/Vol] 18 mg/dL 7-18 [facility] Work Phone: Thin prep Papanicolaou smear with manual screeningon 12-19-2021 Thin prep Papanicolaou smear with manual screening 5 -15 [facility] Work Phone: Laboratory - Coagulationon 0 12-12-2021 INR Coag (Bld) [Relative time] 2.0 {INR} [facility] Work Phone: Comment on above: Critical Value > 4.0 Whole blood prothrombin time on 12-12-2021 PT Coag (Bld) [Time] 23.9 s 11.7-14.9 [facility] Work Phone: ANES POSTPROC EVALon 022 ANES POSTPROC EVAL Normal [facility] Laboratory - Coagulationon 0 12-08-2021 INR Coag (Bld) [Relative time] 1.8 {INR} [facility] Work Phone: Comment on above: Critical Value > 4.0 Whole blood prothrombin time on 12-08-2021 PT Coag (Bld) [Time] 21.0 s 11.7-14.9 [facility] Work Phone: Absolute lymphocyte counton 12-05-2021 Lymphocytes Auto (Unsp spec) [#/Vol] 2.97 10*3/uL 0.83-4.51 [facility] Work Phone: Basophil percentageon 2021 Basophils/100 WBC (Bld) 0.6 % 0-1 [facility] Work Phone: Chloride [Moles/Vol] 106 mmol/L 98-107 [facility] Work Phone: Eosinophils/100 WBC (Bld) 2.3 % 0-5 [facility] Work Phone: Glucose [Mass/Vol] 107 mg/dL 74-106 [facility] Work Phone: Comment on above: Fasting Glucose resu lt from 100 to 125 mg/dL suggests IMPAIRED HOMEOSTASIS per A.D.A. criteria. Neutrophils (Bld) [#/Vol] 5.6 10*3/uL 2.0-7.7 [facility] Work Phone: Neutrophils/100 WBC (Bld) 60.2 % 47-70 [facility] Work Phone: Potassium [Moles/Vol] 3.4 mmol/L 3.5-5.1 [facility] Work Phone: Sodium [Moles/Vol] 139 mmol/L 136-145 [facility] Work Phone: WBC (Bld) [#/Vol] 9.3 10*3/uL 4.4-11.0 [facility] Work Phone: [phone] Blood erythrocytes count (nu mber/volume)on 12-05-2021 RBC (Bld) [#/Vol] 4.49 10*6/uL 4.6-6.2 [facility] Work Phone: Blood hemoglobin measurement (mass/volume)on 12-05-2021 Hemoglobin (Bld) [Mass/Vol] 12.1 g/dL 13.0-16.5 [facility] Work Phone: Blood lymphocytes/100 leukoc yteson 12-05-2021 Lymphocytes/100 WBC (Bld) 32.0 % 19-41 [facility] Work Phone: Blood monocytes/100 leukocyt eson 12-05-2021 Monocytes/100 WBC (Bld) 4.7 % 0-10 [facility] Work Phone: Blood platelet mean volumeon 12-05-2021 Platelet mean volume (Bld) [Entitic vol] 10.8 fL 6.2-12.0 [facility] Work Phone: Determination of erythrocyte mean corpuscular volume (MCV)on 12-05-2021 MCV (RBC) [Entitic vol] 84.9 fL 80-94 [facility] Work Phone: Hematocrit Auto (Bld) [Volum e fraction]on 12-05-2021 Hematocrit (Bld) [Volume fraction] 38.1 % 40-54 [facility] Work Phone: INR in Blood by Coagulation assayon 12-05-2021 INR Coag (Bld) [Relative time] 1.8 {INR} [facility] Work Phone: Laboratory - Chemistry and C hemistry - challengeon 12-05-2021 CO2 [Moles/Vol] 29.0 mmol/L 21.0-32.0 [facility] Work Phone: Urea nitrogen/Creatinine [Mass ratio] 25.4 mg/mg 10-20 [facility] Work Phone: Laboratory - Coagulationon 0 12-05-2021 PT Coag (PPP) [Time] 20.5 s 11.7-14.9 [facility] Work Phone: Laboratory - Hematology and Cell countson 12-05-2021 Erythrocyte distribution width (RBC) [Entitic vol] 48.5 fL 35.1-43.9 [facility] Work Phone: Erythrocyte distribution width (RBC) [Ratio] 15.7 % 11.6-14.6 [facility] Work Phone: Immature granulocytes/100 WBC (Bld) 0.200 % 0.0-0.9 [facility] Work Phone: Comment on above: IG% - Immature Granu locytes (promyelocytes, myelocytes and metamyelocytes) > 1% indicates that a LEFT SHIFT is Present. MCH (RBC) [Entitic mass] 26.9 pg 27.0-32.0 [facility] Work Phone: Nucleated RBC/100 WBC (Bld) [Ratio] 0 % 0-5 [facility] Work Phone: MCHC Auto (RBC) [Mass/Vol]on 12-05-2021 MCHC (RBC) [Mass/Vol] 31.8 g/dL 32-36 [facility] Work Phone: No Panel Informationon 12-05 Estimated GFR (MDRD) Amer 133 mL/min >60 [facility] Work Phone: Comment on above: GFR Calc Estimated GFR (MDRD) Non-Af Amer 110 mL/min >60 [facility] Work Phone: Comment on above: Non- GFR Calc Platelets bldon 12-05-2021 Platelets (Bld) [#/Vol] 363 10*3/uL 150-450 [facility] Work Phone: Serum or plasma calcium oral urement (mass/volume)on 12-05-2021 Calcium [Mass/Vol] 9.4 mg/dL 8.5-10.1 [facility] Work Phone: Serum or plasma creatinine m easurement (mass/volume)on 12-05-2021 Creatinine [Mass/Vol] 0.75 mg/dL 0.70-1.30 [facility] Work Phone: Comment on above: The validity of the calculated GFR & GFRAA in patients over 70 years has not been determined. Clinical correlation is essential. Serum or plasma urea nitroge n measurement (mass/volume)on 12-05-2021 Urea nitrogen [Mass/Vol] 19 mg/dL 7-18 [facility] Work Phone: Thin prep Papanicolaou smear with manual screeningon 12-05-2021 Thin prep Papanicolaou smear with manual screening 4 5-15 [facility] Work Phone: Basophil percentageon 2021 Basophil percentage 0 SEEN /hpf 0-5 [facility] Work Phone: Chloride [Moles/Vol] 104 mmol/L 98-107 [facility] Work Phone: Glucose [Mass/Vol] 90 mg/dL 74-106 [facility] Work Phone: Potassium [Moles/Vol] 3.7 mmol/L 3.5-5.1 [facility] Work Phone: Comment on above: Slight Hemolysis, Re sult may be falsely increased. Sodium [Moles/Vol] 138 mmol/L 136-145 [facility] Work Phone: WBC (Bld) [#/Vol] 10.7 10*3/uL 4.4-11.0 [facility] Work Phone: Bilirubin Test strip Ql (U)o n 12-01-2021 Bilirubin Ql (U) Negative Negative [facility] Work Phone: Blood erythrocytes count (nu mber/volume)on 12-01-2021 RBC (Bld) [#/Vol] 4.33 10*6/uL 4.6-6.2 [facility] Work Phone: Blood hemoglobin measurement (mass/volume)on 12-01-2021 Hemoglobin (Bld) [Mass/Vol] 11.6 g/dL 13.0-16.5 [facility] Work Phone: Blood platelet mean volumeon 12-01-2021 Platelet mean volume (Bld) [Entitic vol] 11.2 fL 6.2-12.0 [facility] Work Phone: Determination of erythrocyte mean corpuscular volume (MCV)on 12-01-2021 MCV (RBC) [Entitic vol] 85.2 fL 80-94 [facility] Work Phone: Hematocrit Auto (Bld) [Volum e fraction]on 12-01-2021 Hematocrit (Bld) [Volume fraction] 36.9 % 40-54 [facility] Work Phone: Ketones Test strip Ql (U)on 12-01-2021 Ketones Ql (U) Negative Negative [facility] Work Phone: Laboratory - Chemistry and C hemistry - challengeon 12-01-2021 CO2 [Moles/Vol] 27.0 mmol/L 21.0-32.0 [facility] Work Phone: Urea nitrogen/Creatinine [Mass ratio] 24.0 mg/mg 10-20 [facility] Work Phone: Laboratory - Coagulationon 0 12-01-2021 INR Coag (Bld) [Relative time] 1.6 {INR} [facility] Work Phone: Comment on above: Critical Value > 4.0 Laboratory - Hematology and Cell countson 12-01-2021 Erythrocyte distribution width (RBC) [Entitic vol] 47.9 fL 35.1-43.9 [facility] Work Phone: Erythrocyte distribution width (RBC) [Ratio] 15.5 % 11.6-14.6 [facility] Work Phone: MCH (RBC) [Entitic mass] 26.8 pg 27.0-32.0 [facility] Work Phone: MCHC Auto (RBC) [Mass/Vol]on 12-01-2021 MCHC (RBC) [Mass/Vol] 31.4 g/dL 32-36 [facility] Work Phone: Mucus LM Ql (Urine sed)on Mucus Ql (Urine sed) 0 SEEN /hpf [facility] Work Phone: Nitrite Test strip Ql (U)on 12-01-2021 Nitrite Ql (U) Negative Negative [facility] Work Phone: No Panel Informationon 12-01 Estimated GFR (MDRD) Amer 133 mL/min >60 [facility] Work Phone: Comment on above: GFR Calc Estimated GFR (MDRD) Non-Af Amer 110 mL/min >60 [facility] Work Phone: Comment on above: Non- GFR Calc Platelets bldon 12-01-2021 Platelets (Bld) [#/Vol] 336 10*3/uL 150-450 [facility] Work Phone: Protein Test strip Ql (U)on 12-01-2021 Protein Ql (U) 30 mg/dl Negative [facility] Work Phone: Serum or plasma calcium oral urement (mass/volume)on 12-01-2021 Calcium [Mass/Vol] 9.4 mg/dL 8.5-10.1 [facility] Work Phone: Serum or plasma creatinine m easurement (mass/volume)on 12-01-2021 Creatinine [Mass/Vol] 0.75 mg/dL 0.70-1.30 [facility] Work Phone: Comment on above: The validity of the calculated GFR & GFRAA in patients over 70 years has not been determined. Clinical correlation is essential. Serum or plasma urea nitroge n measurement (mass/volume)on 12-01-2021 Urea nitrogen [Mass/Vol] 18 mg/dL 7-18 [facility] Work Phone: Squamous epithelial cells de tection in urine sediment by light microscopyon 12-01-2021 Epithelial cells.squamous LM Ql (Urine sed) 0-5 SEEN /hpf 0-5 [facility] Work Phone: Thin prep Papanicolaou smear with manual screeningon 12-01-2021 Thin prep Papanicolaou smear with manual screening 7 5-15 [facility] Work Phone: Urine blood detectionon 11-05 RBC Ql (U) Negative Negative [facility] Work Phone: RBC Ql (U) 0 SEEN /hpf 0-5 [facility] Work Phone: Urine clarityon 12-01-2021 Clarity (U) Clear Clear [facility] Work Phone: Urine color determinationon 12-01-2021 Color (U) Yellow Yellow [facility] Work Phone: Urine glucose detectionon Glucose Ql (U) 50 mg/dl Normal [facility] Work Phone: Urine leukocyte esterase det ection by dipstickon 12-01-2021 Leukocyte esterase Test strip Ql (U) Negative Negative [facility] Work Phone: Urine pHon 12-01-2021 pH (U) 6.0 [pH] 5.0 - 8.0 [facility] Work Phone: Urine sediment bacteria coun t by microscopy (number/high power field)on 12-01-2021 Bacteria LM.HPF (Urine sed) [#/Area] 0 /[HPF] None Seen [facility] Work Phone: Urine sediment yeast count b y microscopy (number/high powered field)on 12-01-2021 Yeast LM.HPF (Urine sed) [#/Area] 2 /[HPF] None Seen [facility] Work Phone: Urine specific gravity measu rementon 12-01-2021 Specific gravity (U) [Rel density] 1.010 1.002-1.030 [facility] Work Phone: Urobilinogen Auto test strip Ql (U)on 12-01-2021 Urobilinogen Ql (U) Normal mg/dl Normal [facility] Work Phone: Whole blood prothrombin time on 12-01-2021 PT Coag (Bld) [Time] 19.8 s 11.7-14.9 [facility] Work Phone: Laboratory - Coagulationon 0 11-28-2021 INR Coag (Bld) [Relative time] 1.6 {INR} [facility] Work Phone: Comment on above: Critical Value > 4.0 Whole blood prothrombin time on 11-28-2021 PT Coag (Bld) [Time] 18.8 s 11.7-14.9 [facility] Work Phone: INR in Blood by Coagulation assayon 11-23-2021 INR Coag (Bld) [Relative time] 2.7 {INR} [facility] Work Phone: Laboratory - Coagulationon 0 11-23-2021 PT Coag (PPP) [Time] 28.0 s 11.7-14.9 [facility] Work Phone: Laboratory - Coagulationon 0 11-22-2021 INR Coag (Bld) [Relative time] 3.8 {INR} [facility] Work Phone: Comment on above: Critical Value > 4.0 Whole blood prothrombin time on 11-22-2021 PT Coag (Bld) [Time] 42.8 s 11.7-14.9 [facility] Work Phone: INR in Blood by Coagulation assayon 11-21-2021 INR Coag (Bld) [Relative time] 3.9 {INR} [facility] Work Phone: Laboratory - Coagulationon 0 11-21-2021 PT Coag (PPP) [Time] 37.7 s 11.7-14.9 [facility] Work Phone: Whole blood prothrombin time on 11-21-2021 PT Coag (Bld) [Time] 45.5 s 11.7-14.9 [facility] Work Phone: INR in Blood by Coagulation assayon 11-14-2021 INR Coag (Bld) [Relative time] 3.1 {INR} [facility] Work Phone: Laboratory - Coagulationon 0 11-14-2021 PT Coag (PPP) [Time] 31.4 s 11.7-14.9 [facility] Work Phone: Laboratory - Coagulationon 0 11-08-2021 INR Coag (Bld) [Relative time] 2.5 {INR} [facility] Work Phone: Comment on above: Critical Value > 4.0 Whole blood prothrombin time on 11-08-2021 PT Coag (Bld) [Time] 29.0 s 11.7-14.9 [facility] Work Phone: Basophil percentageon 2021 Chloride [Moles/Vol] 106 mmol/L 98-107 [facility] Work Phone: Glucose [Mass/Vol] 100 mg/dL 74-106 [facility] Work Phone: Comment on above: Fasting Glucose resu lt from 100 to 125 mg/dL suggests IMPAIRED HOMEOSTASIS per A.D.A. criteria. Potassium [Moles/Vol] 3.7 mmol/L 3.5-5.1 [facility] Work Phone: Sodium [Moles/Vol] 140 mmol/L 136-145 [facility] Work Phone: WBC (Bld) [#/Vol] 8.8 10*3/uL 4.4-11.0 [facility] Work Phone: Blood erythrocytes count (nu mber/volume)on 11-04-2021 RBC (Bld) [#/Vol] 4.05 10*6/uL 4.6-6.2 [facility] Work Phone: Blood hemoglobin measurement (mass/volume)on 11-04-2021 Hemoglobin (Bld) [Mass/Vol] 11.1 g/dL 13.0-16.5 [facility] Work Phone: Blood platelet mean volumeon 11-04-2021 Platelet mean volume (Bld) [Entitic vol] 10.8 fL 6.2-12.0 [facility] Work Phone: Determination of erythrocyte mean corpuscular volume (MCV)on 11-04-2021 MCV (RBC) [Entitic vol] 86.9 fL 80-94 [facility] Work Phone: Hematocrit Auto (Bld) [Volum e fraction]on 11-04-2021 Hematocrit (Bld) [Volume fraction] 35.2 % 40-54 [facility] Work Phone: INR in Blood by Coagulation assayon 11-04-2021 INR Coag (Bld) [Relative time] 1.8 {INR} [facility] Work Phone: Laboratory - Chemistry and C hemistry - challengeon 11-04-2021 CO2 [Moles/Vol] 26.0 mmol/L 21.0-32.0 [facility] Work Phone: Urea nitrogen/Creatinine [Mass ratio] 18.3 mg/mg 10-20 [facility] Work Phone: Laboratory - Coagulationon 0 11-04-2021 PT Coag (PPP) [Time] 20.4 s 11.7-14.9 [facility] Work Phone: Laboratory - Hematology and Cell countson 11-04-2021 Erythrocyte distribution width (RBC) [Entitic vol] 48.1 fL 35.1-43.9 [facility] Work Phone: Erythrocyte distribution width (RBC) [Ratio] 15.0 % 11.6-14.6 [facility] Work Phone: MCH (RBC) [Entitic mass] 27.4 pg 27.0-32.0 [facility] Work Phone: MCHC Auto (RBC) [Mass/Vol]on 11-04-2021 MCHC (RBC) [Mass/Vol] 31.5 g/dL 32-36 [facility] Work Phone: No Panel Informationon 11-04 D-Dimer Quantitative (PE/DVT) 0.56 FEU/ug/m 0.27-0.49 [facility] Work Phone: Comment on above: D-Dimer ELEVATED (>0 .49): Additional studies and clinicalassessments are indicated to conclude diagnosis of:Deep Vein Thrombosis (DVT) or Pulmonary Embolism (PE) Estimated GFR (MDRD) Amer 155 mL/min >60 [facility] Work Phone: Comment on above: GFR Calc Estimated GFR (MDRD) Non-Af Amer 128 mL/min >60 [facility] Work Phone: Comment on above: Non- GFR Calc Troponin I High Sensitivity 11 pg/mL 3.0-78.0 [facility] Work Phone: Comment on above: Please Note: New Fadumo t Units and Gender Specific Reference Ranges. For more information see Policy Stat Procedure [place] High Sensitivity Troponin (TNIH) and attachments. Platelets bldon 11-04-2021 Platelets (Bld) [#/Vol] 364 10*3/uL 150-450 [facility] Work Phone: Serum or plasma C reactive p rotein measurement (mass/volume)on 11-04-2021 CRP [Mass/Vol] 31.90 mg/L 0.0-3.0 [facility] Work Phone: Comment on above: C-Reactive Protein ( CRP) provides useful information for thediagnosis, therapy and monitoring of inflammatory processesand associated diseases. For the evaluation of Relative Riskfor Cardiovascular Disease, a High Sensitivity CRP (HSCRP)should be ordered. Serum or plasma calcium oral urement (mass/volume)on 11-04-2021 Calcium [Mass/Vol] 9.1 mg/dL 8.5-10.1 [facility] Work Phone: Serum or plasma creatinine m easurement (mass/volume)on 11-04-2021 Creatinine [Mass/Vol] 0.66 mg/dL 0.70-1.30 [facility] Work Phone: Comment on above: The validity of the calculated GFR & GFRAA in patients over 70 years has not been determined. Clinical correlation is essential. Serum or plasma urea nitroge n measurement (mass/volume)on 11-04-2021 Urea nitrogen [Mass/Vol] 12 mg/dL 7-18 [facility] Work Phone: Thin prep Papanicolaou smear with manual screeningon 11-04-2021 Thin prep Papanicolaou smear with manual screening 8 5-15 [facility] Work Phone: Complete Urinalysison 2021 Appearance (U) Clear Normal Clear [facility] Comment on above: Result Comment: . Performed By: #### C UA2 ####[facility] [address] [place], [place] Bacteria Moderate Abnormal Negative [facility] Comment on above: Result Comment: . Performed By: #### C UA2 ####[facility] [address] [place], [place] Bilirubin,Urine Negative Normal Negative [facility] Comment on above: Result Comment: . Performed By: #### C UA2 ####[facility] [address] [place], [place] Cast, Hyaline Negative Normal Negative [facility] Comment on above: Result Comment: . Performed By: #### C UA2 ####[address] [place], [place] Color (U) Yellow Normal Lt. Yellow [facility] Comment on above: Result Comment: . Performed By: #### C UA2 ####[facility] [address] [place], [place] Glucose Ql (U) Normal Normal Normal (<70) [facility] Comment on above: Result Comment: . Performed By: #### C UA2 ####[facility] [address] [place], [place] Ketone,Urine Negative Normal Negative [facility] Comment on above: Result Comment: . Performed By: #### C UA2 ####[facility] [address] [place], [place] Leukocytes,Urine Negative Normal Negative [facility] Comment on above: Result Comment: . Performed By: #### C UA2 ####[facility] [address] [place], [place] Mucous Threads Few Normal Negative [facility] Comment on above: Result Comment: . Performed By: #### C UA2 ####[facility] [address] [place], [place] Nitrites,Urine Negative Normal Negative [facility] Comment on above: Result Comment: . Performed By: #### C UA2 ####[facility] [address] Occult Blood,Urine 0.1 mg/dL Abnormal Negative [facility] Comment on above: Result Comment: . Performed By: #### C UA2 ####[address] pH,Urine 5.5 Normal 5.0-8.0 [facility] Comment on above: Result Comment: . Performed By: #### C UA2 ####[address] Protein (U) [Mass/Vol] 10 mg/dL Abnormal Negative [facility] Comment on above: Result Comment: . Performed By: #### C UA2 ####[address] RBC, Urine 26 - 50 Abnormal 0-2 [facility] Comment on above: Result Comment: . Performed By: #### C UA2 ####[address] Specific [place],Urine 1.023 Normal 1.005 - 1.030 [facility] Comment on above: Result Comment: . Performed By: #### C UA2 ####[address] Squamous Epithelial Negative Normal 3-5 [facility] Comment on above: Result Comment: . Performed By: #### C UA2 ####[address] Urobilinogen,Urine Normal Normal Normal (0-1) [facility] Comment on above: Result Comment: . Performed By: #### C UA2 ####[address] WBC, Urine 0 - 2 Normal 0-5 [facility] Comment on above: Result Comment: . Performed By: #### C UA2 ####[address] Urinalysison 11-01-2021 Appearance (U) Clear Clear NA [facility] Comment on above: . Bacteria, UA Moderate [...] Protein (U) [Mass/Vol] 10 mg/dL Abnormal Negative [facility] Comment on above: . RBC, UA 26-50 Abnormal 0 - 2 /[HPF] [facility] Comment on above: . Specific [place], Urine 1.023 [facility] Comment on above: . Squam Epithel, UA Negative 3 - 5 /[HPF] [facility] Comment on above: . Urobilinogen, Urine Normal Normal ( 0-1) mg/dL [facility] Comment on above: . WBC, UA 0-2 0 - 5 /[HPF] [facility] Comment on above: . Test Performed by [facility], [address] [place] [id number] [facility] Basic Metabolic Panelon 06-2 Anion gap [Moles/Vol] 6 mmol/L Normal 3-13 [facility] Comment on above: Performed By: #### P T/AP, TROPN, BMP3, HEMDF #### [address] [address] Calcium [Mass/Vol] 9.1 mg/dL Normal 8.4-10.4 [facility] Comment on above: Performed By: #### P T/AP, TROPN, BMP3, HEMDF #### [address] [address] [place] [address] CO2 [Moles/Vol] 28 mmol/L Normal 22-30 [facility] Comment on above: Performed By: #### P T/AP, TROPN, BMP3, HEMDF #### [facility] [address] [place], [place] Glucose [Mass/Vol] 120 mg/dL High 70-100 [facility] Comment on above: Performed By: #### P T/AP, TROPN, BMP3, HEMDF #### [facility] [address] [place], [place] Urea nitrogen [Mass/Vol] 17 mg/dL Normal 7-17 [facility] Comment on above: Performed By: #### P T/AP, TROPN, BMP3, HEMDF #### [address] [place], [place] Creatinine [Mass/Vol] 0.65 mg/dL Normal 0.52-1.25 [facility] Comment on above: Performed By: #### P T/AP, TROPN, BMP3, HEMDF #### [address] [place], [place] eGFR OTHER > 90.0 Normal >60 [...] #### P T/AP, TROPN, BMP3, HEMDF #### [address] [place], [place] GFR/1.73 sq M.predicted among blacks MDRD (S/P/Bld) [Vol rate/Area] mL/min/{1.73_m2} Normal >60 [facility] Comment on above: Performed By: #### P T/AP, TROPN, BMP3, HEMDF #### [facility] [address] [place], [place] Potassium [Moles/Vol] 3.8 mmol/L Normal 3.5-5.1 [facility] Comment on above: Performed By: #### P T/AP, TROPN, BMP3, HEMDF #### [facility] [address] [place], [place] Chloride [Moles/Vol] 101 mmol/L Normal 98-107 [facility] Comment on above: Performed By: #### P T/AP, TROPN, BMP3, HEMDF #### [facility] [address] [place], [place] Sodium [Moles/Vol] 134 mmol/L Low 135-145 [facility] Comment on above: Performed By: #### P T/AP, TROPN, BMP3, HEMDF #### [facility] [address] [place], [place] Anion gap [Moles/Vol] 6 mmol/L 3 - 13 mmol/L [facility] Calcium [Mass/Vol] 9.1 mg/dL 8.4 - 10. 4 mg/dL [facility] Chloride [Moles/Vol] 101 mmol/L 98 - 10 7 mmol/L [facility] CO2 [Moles/Vol] 28 mmol/L 22 - 30 mmol/L [facility] Creatinine [Mass/Vol] 0.65 mg/dL 0.52 - 1.25 mg/dL [facility] EGFR IF NonAfrican Bahamian >90.0 >60 mL/min [facility] Comment on above: KDIGO guidelines pro [...] - 17 mg/dL [facility] Test Performed by [id number] [place] [address] LAB [facility] CBC with Auto Differentialon 10-31-2021 [...] - 10.7 10*3/uL [facility] Test Performed by [facility], [address] [place] [id number] [place] [address] LAB [facility] CR Abdomen APon 10-31-2021 CR Abdomen AP [facility]: [id number] Diagnostic Radiology ACCESSION EXAM DATE/TIME PROCEDURE ORDERING PROVIDER [id number] 10/31/2021 20:36 EDT CR Abdomen AP [id number] -MYRON DURAN CPT code 29897 Reason For Exam (CR Abdomen AP) 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 & online shunt, 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 CHEST PORTABLE [...] Radiology ACCESSION EXAM DATE/TIME PROCEDURE ORDERING PROVIDER [id number] 10/31/2021 20:36 EDT CR Chest Portable [id number] MYRON GALINDO CPT code 15469 Reason For Exam (CR Chest Portable) AMS [...] Tomography ACCESSION EXAM DATE/TIME PROCEDURE ORDERING PROVIDER [id number] 10/31/2021 20:[address] Head or Brain w/o [id number] -DURAN, MYRON Contrast CPT code 30749 Reason For Exam (CT Head or Brain w/o Contrast) AMS, previous BLOW MOLD OPERATOR shunt Report Examination: CT Head Clinical Information: AMS, previous BLOW MOLD OPERATOR shunt Comparison: 10/26/2021, MRI 10/27/2021 Findings: [...] J Transcribed Date and Time: 10/31/2021 8:54 [facility] Carla Wong MD - 10/31/2021 Patient Name: [facility] [id number] Computed Tomography ACCESSION EXAM DATE/TIME PROCEDURE ORDERING PROVIDER [id number] 10/31/2021 20:[address] Head or Brain w/o [id number] -DURAN, MYRON Contrast CPT code 72862 Reason For Exam (CT Head or Brain w/o Contrast) AMS, previous BLOW MOLD OPERATOR shunt Report Examination: CT Head Clinical Information: AMS, previous BLOW MOLD OPERATOR shunt Comparison: 10/26/2021, MRI 10/27/2021 Findings: [...] Brain w/o Contrast Patient [facility]: [id number] Computed Tomography ACCESSION EXAM DATE/TIME PROCEDURE ORDERING PROVIDER [id number] 10/31/2021 20:[address] Head or Brain w/o [id number] -DURAN, MYRON Contrast CPT code 77223 Reason For Exam (CT Head or Brain w/o Contrast) AMS, previous BLOW MOLD OPERATOR shunt Report Examination: CT Head Clinical Information: AMS, previous BLOW MOLD OPERATOR shunt Comparison: 10/26/2021, MRI 10/27/2021 Findings: [...] Time: 10/31/2021 8:58 pm Signed by: MD ESTEE, CARLA Machuca Transcribed Date and Time: 10/31/2021 8:54 Normal [...] is cooperative and calm. According to the group home, he has been more lethargic than normal, [...] [facility] ED Provider Note [facility] EMERGENCY DEPT EMERGENCY DEPARTMENT ENCOUNTER Pt Name: Andrew Sifuentes Birthdate 1950 Date of evaluation: 10/31/2021 Provider: Myron Duran MD CHIEF COMPLAINT Chief Complaint Patient presents with ? Altered Mental Status Pt presents to ED via [facility] for complaint listed. Pt is from [place] [facility]. Pt's LKW was 1000 hours today. Per [...] have a history of hydrocephalus with a BLOW MOLD OPERATOR shunt. 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 REVIEW [...] (HCC) ? Kidney stone ? Neuropathy ? BLOW MOLD OPERATOR (ventriculoperitoneal) shunt status SURGICAL HISTORY Past [...] of Transportati (more content not included)... 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: ANDRES : 1950 Requested By: MYRON DURAN Order Number: [id number] Reading MD: Dante Kim Measurements Intervals [place] Rate: 91 P: 41 MS: 154 QRS: 50 QRSD: 147 T: 8 QT: 385 QTc: 474 Interpretive Statements Sinus rhythm Right bundle branch block Electronically Signed On 10-31-2021 20:36:25 EDT by Dante Kim [facility] CARDIOLOGY Dante Kim M D - 10/31/2021 [facility] Test Date: 2021-10-31 Pat Name: ANDREW SIFUENTES Department: [facility] Room: 40 Gender: M Instructional Technology Coordinator: ANDRES : 1950 Requested By: MYRON DURAN Order Number: [id number] Reading MD: Dante Kim Measurements Intervals [place] Rate: 91 P: 41 MS: 154 QRS: 50 QRSD: 147 T: 8 QT: 385 QTc: 474 Interpretive Statements Sinus rhythm Right bundle branch block Electronically Signed On 10-31-2021 20:36:25 EDT by Dante Kim [facility] Work Phone: EKG 12 Lead - Chest PainOrde red By: Dante Kim on 10-31-2021 [facility] Work Phone: Hemogram w/ [employer]od[employer]on 10-31 Abs Baso Cnt 0.1 10*3/uL Normal 0.0-0.2 [facility] Comment on above: Performed By: #### P T/AP, TROPN, BMP3, HEMDF #### [facility] [address] [place] [address] Abs Neutrophile Cnt 6.0 10*3/uL Normal 1.8-7.0 [facility] Comment on above: Performed By: #### P T/AP, TROPN, BMP3, HEMDF #### [facility] [address] [place] [address] Basophils/100 WBC (Bld) 1.1 % Normal 0.0-2.0 [facility] Comment on above: Performed By: #### P T/AP, TROPN, BMP3, HEMDF #### [facility] [address] [place] [address] Eosinophils (Bld) [#/Vol] 0.2 10*3/uL Normal 0.0-0.5 [facility] Comment on above: Performed By: #### P T/AP, TROPN, BMP3, HEMDF #### [address] [place], [place] Eosinophils/100 WBC (Bld) 2.3 % Normal 1.0-6.0 [facility] Comment on above: Performed By: #### P T/AP, TROPN, BMP3, HEMDF #### [address] [place], [place] Erythrocyte distribution width (RBC) [Ratio] 17.2 % High 11.5-14.5 [facility] Comment on above: Performed By: #### P T/AP, TROPN, BMP3, HEMDF #### [address] [place], [place] Granulocytes/100 WBC (Bld) 61.8 % Normal 40.0-80.0 [facility] Comment on above: Performed By: #### P T/AP, TROPN, BMP3, HEMDF #### [address] [place] Hematocrit (Bld) [Volume fraction] 35.0 % Low 40.0-52.0 [facility] Comment on above: Performed By: #### P T/AP, TROPN, BMP3, HEMDF #### [address] [place] Hemoglobin (Bld) [Mass/Vol] 11.3 g/dL Low 13.0-18.0 [facility] Comment on above: Performed By: #### P T/AP, TROPN, BMP3, HEMDF #### [address] [place], [place] Lymphocytes (Bld) [#/Vol] 2.8 10*3/uL Normal 1.0-4.3 [facility] Comment on above: Performed By: #### P T/AP, TROPN, BMP3, HEMDF #### [address] [address] [place], [place] Lymphocytes/100 WBC (Bld) 29.2 % Normal 20.0-40.0 [facility] Comment on above: Performed By: #### P T/AP, TROPN, BMP3, HEMDF #### [address] MCH (RBC) [Entitic mass] 27.5 pg Normal 26.0-34.0 [facility] Comment on above: Performed By: #### P T/AP, TROPN, BMP3, HEMDF #### [address] MCHC 32.3 % Normal 32.0-36.0 [facility] Comment on above: Performed By: #### P T/AP, TROPN, BMP3, HEMDF #### [address] MCV (RBC) [Entitic vol] 85.0 fL Normal 80.0-98.0 [facility] Comment on above: Performed By: #### P T/AP, TROPN, BMP3, HEMDF #### [address] Monocytes (Bld) [#/Vol] 0.5 10*3/uL Normal 0.0-0.8 [facility] Comment on above: Performed By: #### P T/AP, TROPN, BMP3, HEMDF #### [address] Monocytes/100 WBC (Bld) 5.6 % Normal 2.0-10.0 [facility] Comment on above: Performed By: #### P T/AP, TROPN, BMP3, HEMDF #### [address] Platelet mean volume (Bld) [Entitic vol] 8.6 fL Normal 7.4-12.4 [facility] Comment on above: Result Comment: MPV is a calculated measurement using platelet volume ratio. Performed By: #### P T/AP, TROPN, BMP3, HEMDF #### [address] Platelets (Bld) [#/Vol] 348 10*3/uL Normal 140-440 [facility] Comment on above: Performed By: #### P T/AP, TROPN, BMP3, HEMDF #### [facility] [address] [place], [place] RBC (Bld) [#/Vol] 4.12 10*6/uL Low 4.40-5.90 [facility] Comment on above: Performed By: #### P T/AP, TROPN, BMP3, HEMDF #### [facility] [address] [place], [place] WBC (Bld) [#/Vol] 9.7 10*3/uL Normal 3.6-10.7 [facility] Comment on above: Performed By: #### P T/AP, TROPN, BMP3, HEMDF #### [facility] [address] [place], [place] Laboratory - Coagulationon 0 10-31-2021 INR Coag (Bld) [Relative time] 2.0 {INR} [facility] Work Phone: Comment on above: Critical Value > 4.0 No Panel Informationon 10-31 Radiology Study observation (narrative) [facility] Work Phone: PROTIME/INR & PTTon 11-01-19 22 aPTT Coag (Bld) [Time] 39.2 s High 20.0 - 30.5 s [facility] Comment on above: NOTE: The therapeuti c time for Heparin anticoagulation, based on Xa activity inhibition, is an APTT of 46-80 seconds. INR Coag (Bld) [Relative time] 1.9 {INR} High [facility] Comment on above: Recommended Anticoag ulant [...] Interpretation and review of laboratory results Abnormal [facility] PT Coag (PPP) [Time] 19.8 s High 9.0 - 12.0 s [facility] Comment on above: . Test Performed by [facility], [address] [place] [id number] [place] [address] - [facility] Protime AND APTTon aPTT Coag (Bld) [Time] 39.2 s High 20.0-30.5 [facility] Comment on above: Result Comment: NOTE : The therapeutic time for Heparin anticoagulation, based on Xa activity inhibition, is an APTT of 46-80 seconds. Performed By: #### P T/AP, TROPN, BMP3, HEMDF #### [address] INR 1.9 High 0.9-1.1 [facility] [...] P T/AP, TROPN, BMP3, HEMDF #### [address] PT Coag (PPP) [Time] 19.8 s High 9.0-12.0 [facility] Comment on above: Result Comment: . Performed By: #### P T/AP, TROPN, BMP3, HEMDF #### [address] Troponin Ion 10-31-2021 Troponin I.cardiac [Mass/Vol] ng/mL Normal 0.000-0.034 [facility] Comment on above: Result Comment: . Performed By: #### P T/AP, TROPN, BMP3, HEMDF #### [address] [address] Troponin x1on 10-31-2021 Troponin I.cardiac [Mass/Vol] ng/mL 0.000 - 0.034 ng/mL [facility] Comment on above: . 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 shunt, 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 CHEST PORTABLE [...] WENDELL Transcribed Date and Time: 10/31/2021 8:49 [facility] Huang Reynoso MD - 10/31/2021 Patient Name: ANDREW SIFUENTES Diagnostic Radiology ACCESSION EXAM DATE/TIME PROCEDURE ORDERING PROVIDER [id number] 10/31/2021 20:36 EDT CR Abdomen AP [id number] -MYRON DURAN CPT code 68843 Reason For Exam (CR Abdomen AP) 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 & 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 shunt, 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 CHEST PORTABLE [...] WENDELL Transcribed Date and Time: 10/31/2021 8:49 [facility] Work Phone: [facility] Work Phone: XR CHEST PORTABLEon 11-01-19 Patient Name: ANDREW SIFUENTES Diagnostic Radiology ACCESSION EXAM DATE/TIME PROCEDURE ORDERING PROVIDER [id number] 10/31/2021 20:36 EDT CR Chest Portable [id number] -MYRON DURAN CPT code 38373 Reason For Exam (CR Chest Portable) AMS [...] WENDELL Transcribed Date and Time: 10/31/2021 8:49 [facility] Huang Reynoso MD - 10/31/2021 Patient Name: ANDREW SIFUENTES Diagnostic Radiology ACCESSION EXAM DATE/TIME PROCEDURE ORDERING PROVIDER [id number] 10/31/2021 20:36 EDT CR Chest Portable [id number] -MYRON DURAN CPT code 84360 Reason For Exam (CR Chest Portable) AMS [...] CHEST PORTABLEOrdered By: Huang Reynoso on 10-31-2021 [facility] Work Phone: Lupus Anticoagulanton 2021 DRVVT Confirmation Test Not Applicable Negative ratio [facility] Work Phone: dRVVT Screen 38 [facility] Work Phone: Hex Phosph Neut Test Not Applicable Negative NA [facility] Work Phone: [phone] Interpretation and review of laboratory results [...] has not already been performed. Performed by [facility], [address] [place] [id number] [email or web address], Quiana Castro MD - Lab. Director Platelet Neutralization Not Applicable Negative NA [facility] Work Phone: PTT-D Heparin Neutralized 48 [facility] Work Phone: PTT-LA 55 High [facility] Work Phone: [phone] Reptilase Tm 17.6 <=21.9 sec [facility] Work Phone: Thrombin Time 25.3 High [facility] Work Phone: [facility] Work Phone: Lupus Anticoagulant Reflexiv e Panelon 10-29-2021 aPTT Coag (Bld) [Time] 55 s High 32-48 [facility] Comment on above: Performed By: #### C OVAG #### [facility] [address] [place] [address] aPTT Coag (Bld) [Time] 48 s Normal 32-48 [facility] Comment on above: Performed By: #### C OVAG #### [facility] [address] [place] [address] DRVVT 1:1 Mix Not Applicable Normal 33-44 [facility] Work Phone: Comment on above: Performed By: #### C OVAG #### [facility] [address] [place] [address] dRVVT Confirmation Not Applicable Normal Negative [facility] Comment on above: Performed By: #### C OVAG #### [facility] [address] [place] [address] dRVVT Screen 38 sec Normal 33-44 [facility] Comment on above: Performed By: #### C OVAG #### [facility] [address] [place] [address] Hexagonal Phospholipid Neutral Reflex Not Applicable Normal Negative [facility] Comment on above: Performed By: #### C OVAG #### [facility] [address] [place] [address] Lupus Anticoagulant Interpretation See Note Normal Paul [...] has not already been performed. Performed by [facility], [address] [facility] [place] [address] [email or web address], Quiana Castro MD - Lab. Director Performed By: #### C OVAG #### [facility] [address] [place] [address] Platelet Neutralization (PTT-D, Confirm) Not Applicable Normal Negative [facility] Comment on above: Performed By: #### C OVAG #### [facility] [address] [place] [address] PT Coag (PPP) [Time] 14.7 s Normal 12.0-15.5 [facility] Work Phone: Comment on above: Performed By: #### C OVAG #### [place] [address] [place] [address] PTT-D 1:1 Mix Not Applicable Normal 32-48 [facility] Work Phone: Comment on above: Performed By: #### C OVAG #### [facility] [address] [place] [address] Reptilase Time 17.6 sec Normal <=21.9 [facility] Comment on above: Performed By: #### C OVAG #### [facility] [address] [place] [address] Thrombin Time 25.3 sec High 14.7-19.5 [facility] Comment on above: Performed By: #### C OVAG #### [facility] [address] [place] [address] POCT COVID-19, Antigenon SARS-CoV-2 Nucleocapsid Antigen Negative Negative [facility] Comment on above: A negative result does not rule out the possibility of SARS-CoV-2 infection. NAAT-based methods should be considered for symptomatic patients presenting greater than seven days after onset of symptoms. Method: Lateral flow immunoassay. Fact sheets for healthcare providers and patients can be found at the following sites: https://www.fda.gov/media/275479/download https://www.fda.gov/media/742850/download Test Performed by [facility], [address] [place] [address] [facility] LAB [facility] Prothrombin Timeon INR 2.7 High 0.9-1.1 Paul [...] [facility] [address] [facility] [place] [address] PT Coag (PPP) [Time] 27.4 s High 9.0-12.0 [facility] Comment on above: Result Comment: . Performed By: #### P T #### [facility] [address] [place] [address] Protime-INRon 10-29-2021 INR Coag (Bld) [Relative time] 2.7 {INR} High [facility] Work Phone: Comment on above: Recommended [...] Interpretation and review of laboratory results Abnormal [facility] Work Phone: PT Coag (PPP) [Time] 27.4 s High 9.0 - 12.0 s [facility] Work Phone: Comment on above: . Test Performed by [facility], [address] [place], [place] [address] [facility] LAB [facility] Work Phone: SARS-CoV-2 Antigenon 022 SARS-CoV-2 Antigen Negative Normal Negative [employer] Comment on above: Result Comment: A negative result does not rule out the possibility of SARS-CoV-2 infection. NAAT-based methods should be considered for symptomatic patients presenting greater than seven days after onset of symptoms. Method: Lateral flow immunoassay. Fact sheets for healthcare providers and patients can be found at the following sites: https://www.[place] [place].gov/media/114912/download https://www.[place].gov/media/413690/download Performed By: #### C OVAG #### [employer] [employer] [address] [place] [address] CBCon 10-28-2021 Hematocrit (Bld) [Volume fraction] 33.4 % Low 40.0 - 52.0 % [employer] Phone: Hemoglobin (Bld) [Mass/Vol] 11.0 g/dL Low 13.0 - 18.0 g/dL [employer] Phone: Interpretation and review of laboratory results Abnormal [employer] Phone: MCH (RBC) [Entitic mass] 27.8 pg 26.0 - 34.0 pg [employer] Phone: MCHC (RBC) [Mass/Vol] 32.8 % 32.0 - 36.0 % [employer] Phone: MCV (RBC) [Entitic vol] 84.8 fL 80.0 - 98.0 fL [employer] Phone: Platelet distribution width (Bld) [Ratio] 17.1 % High 11.5 - 14.5 % [employer] Phone: Platelet mean volume (Bld) [Entitic vol] 8.3 fL 7.4 - 12.4 fL [employer] Phone: Comment on above: MPV is a calculated measurement using platelet volume ratio. Platelets (Bld) [#/Vol] 344 10*3/uL 140 - 440 10*3/uL [employer] Work Phone: RBC (Bld) [#/Vol] 3.94 10*6/uL Low 4.40 - 5.9 0 10*6/uL [facility] Work Phone: WBC (Bld) [#/Vol] 10.0 10*3/uL 3.6 - 10.7 10*3/uL [facility] Work Phone: Test Performed by [facility], [address] [place], [place], [place] [id number] [place] [address] LAB [facility] Work Phone: Comp Metabolic Panelon 10-28 ALP [Catalytic activity/Vol] 103 U/L Normal 38-126 [facility] Comment on above: Performed By: #### C A19O, LUPUS #### The performing lab is in the report. #### NSEO #### [facility] #### HEMDF, LDH3, BMP3, MG3, PT, CEA2 #### [facility] [address] [place] [address] #### B2GPM, B2GPA, B2GPG #### [address] [address] ALT [Catalytic activity/Vol] 26 U/L Normal 0-49 [...] [facility] [address] [place] [address] #### B2GPM, B2GPA, B2GPG #### [address] [address] AST [Catalytic activity/Vol] 24 U/L Normal 15-46 [facility] Comment on above: Performed By: #### C A19O, LUPUS #### The performing lab is in the report. #### NSEO #### [facility] #### HEMDF, LDH3, BMP3, MG3, PT, CEA2 #### [facility] [address] [place] [address] #### B2GPM, B2GPA, B2GPG #### [address] Calcium [Mass/Vol] 9.1 mg/dL Normal 8.4-10.4 [facility] Comment on above: Performed By: #### C A19O, LUPUS #### The performing lab is in the report. #### NSEO #### [facility] #### HEMDF, LDH3, BMP3, MG3, PT, CEA2 #### [facility] [address] [place] [address] #### B2GPM, B2GPA, B2GPG #### [address] Glucose [Mass/Vol] 117 mg/dL High 70-100 [facility] Comment on above: Performed By: #### C A19O, LUPUS #### The performing lab is in the report. #### NSEO #### [facility] #### HEMDF, LDH3, BMP3, MG3, PT, CEA2 #### [facility] [address] [place] [address] #### B2GPM, B2GPA, B2GPG #### [address] Urea nitrogen [Mass/Vol] 16 mg/dL Normal 7-17 [facility] Comment on above: Performed By: #### C A19O, LUPUS #### The performing lab is in the report. #### NSEO #### [facility] #### HEMDF, LDH3, BMP3, MG3, PT, CEA2 #### [facility] [address] [place] [address] #### B2GPM, B2GPA, B2GPG #### [address] Anion gap [Moles/Vol] 5 mmol/L Normal 3-13 [facility] Comment on above: Performed By: #### C A19O, LUPUS #### The performing lab is in the report. #### NSEO #### [facility] #### HEMDF, LDH3, BMP3, MG3, PT, CEA2 #### [place] [address] [place] [address] #### B2GPM, B2GPA, B2GPG #### [address] [address] Bilirubin [Mass/Vol] 0.4 mg/dL Normal 0.2-1.3 [facility] Comment on above: Performed By: #### C A19O, LUPUS #### The performing lab is in the report. #### NSEO #### [facility] #### HEMDF, LDH3, BMP3, MG3, PT, CEA2 #### [address] [place] [address] #### B2GPM, B2GPA, B2GPG #### [address] [address] CO2 [Moles/Vol] 29 mmol/L Normal 22-30 [facility] Comment on above: Performed By: #### C A19O, LUPUS #### The performing lab is in the report. #### NSEO #### [facility] #### HEMDF, LDH3, BMP3, MG3, PT, CEA2 #### [address] [place] [address] #### B2GPM, B2GPA, B2GPG #### [address] [address] Creatinine [Mass/Vol] 0.71 mg/dL Normal 0.52-1.25 [facility] Comment on above: Performed By: #### C A19O, LUPUS #### The performing lab is in the report. #### NSEO #### [facility] #### HEMDF, LDH3, BMP3, MG3, PT, CEA2 #### [address] [place] [address] #### B2GPM, B2GPA, B2GPG #### [address] eGFR OTHER > 90.0 Normal >60 [...] HEMDF, LDH3, BMP3, MG3, PT, CEA2 #### [address] [place] #### B2GPM, B2GPA, B2GPG #### [address] [address] GFR/1.73 sq M.predicted among blacks MDRD (S/P/Bld) [Vol rate/Area] mL/min/{1.73_m2} Normal >60 [facility] Comment on above: Performed By: #### C A19O, LUPUS #### The performing lab is in the report. #### NSEO #### [facility] #### HEMDF, LDH3, BMP3, MG3, PT, CEA2 #### [facility] [address] [place] [address] #### B2GPM, B2GPA, B2GPG #### [address] Protein [Mass/Vol] 7.1 g/dL Normal 6.3-8.2 [facility] Comment on above: Performed By: #### C A19O, LUPUS #### The performing lab is in the report. #### NSEO #### [facility] #### HEMDF, LDH3, BMP3, MG3, PT, CEA2 #### [facility] [address] [facility] [place] [address] #### B2GPM, B2GPA, B2GPG #### [address] Potassium [Moles/Vol] 3.5 mmol/L Normal 3.5-5.1 [facility] Comment on above: Performed By: #### C A19O, LUPUS #### The performing lab is in the report. #### NSEO #### [facility] #### HEMDF, LDH3, BMP3, MG3, PT, CEA2 #### [place] [address] [place] [address] #### B2GPM, B2GPA, B2GPG #### [address] Sodium [Moles/Vol] 138 mmol/L Normal 135-145 [facility] Comment on above: Performed By: #### C A19O, LUPUS #### The performing lab is in the report. #### NSEO #### [facility] #### HEMDF, LDH3, BMP3, MG3, PT, CEA2 #### [place] [address] [place] [address] #### B2GPM, B2GPA, B2GPG #### [address] Albumin [Mass/Vol] 3.7 g/dL Normal 3.5-5.0 [facility] Comment on above: Performed By: #### C A19O, LUPUS #### The performing lab is in the report. #### NSEO #### [facility] #### HEMDF, LDH3, BMP3, MG3, PT, CEA2 #### [facility] [address] [place] [address] #### B2GPM, B2GPA, B2GPG #### [facility] [address] [place], [place] Chloride [Moles/Vol] 104 mmol/L Normal 98-107 [facility] Comment on above: Performed By: #### C A19O, LUPUS #### The performing lab is in the report. #### NSEO #### [facility] #### HEMDF, LDH3, BMP3, MG3, PT, CEA2 #### [facility] [address] [place] [address] #### B2GPM, B2GPA, B2GPG #### [address] Comprehensive Metabolic Pane kiel 10-28-2021 Albumin [Mass/Vol] 3.7 g/dL 3.5 - 5.0 g/dL [facility] Work Phone: [phone] ALP (Bld) [Catalytic activity/Vol] 103 U/L 38 - 126 U/L [facility] Work Phone: [phone] ALT [Catalytic activity/Vol] 26 U/L 0 - 49 U/L [facility] Work Phone: [phone] Comment on above: The ALT test is perf ormed by an updated assay method. Please note that the reference intervals have been changed and are now sex specific. Anion gap [Moles/Vol] 5 mmol/L 3 - 13 mmol/L [facility] Work Phone: [phone] AST [Catalytic activity/Vol] 24 U/L 15 - 46 U/L [facility] Work Phone: [phone] Bilirubin [Mass/Vol] 0.4 mg/dL 0.2 - 1 .3 mg/dL [facility] Work Phone: [phone] Calcium [Mass/Vol] 9.1 mg/dL 8.4 - 10. 4 mg/dL [facility] Work Phone: [phone] Chloride [Moles/Vol] 104 mmol/L 98 - 10 7 mmol/L [facility] Work Phone: [phone] CO2 [Moles/Vol] 29 mmol/L 22 - 30 mmol/L [facility] Work Phone: [phone] Creatinine [Mass/Vol] 0.71 mg/dL 0.52 - 1.25 mg/dL [employer] Work Phone: [phone] EGFR IF NonAfrican Bahamian >90.0 >60 mL/min [facility] Work Phone: [phone] Comment on above: KDIGO guidelines pro [...] fraction] 7.1 g/dL 6.3 - 8.2 g/dL [facility] Work Phone: [phone] GFR/1.73 sq M.predicted among blacks MDRD (S/P/Bld) [Vol rate/Area] mL/min/{1.73_m2} >60 mL/min [facility] Work Phone: [phone] Glucose [Mass/Vol] 117 mg/dL High 70 - 100 mg/dL [facility] Work Phone: [phone] Interpretation and review of laboratory results Abnormal [facility] Work Phone: [phone] Potassium [Moles/Vol] 3.5 mmol/L 3.5 - 5.1 mmol/L [facility] Work Phone: [phone] Sodium [Moles/Vol] 138 mmol/L 135 - 145 mmol/L [facility] Work Phone: Urea nitrogen (BldV) [Mass/Vol] 16 mg/dL 7 - 17 mg/dL [facility] Work Phone: Test Performed by [facility], [address] [place], [place] [address] [facility] Work Phone: Hemogramon 10-28-2021 Erythrocyte distribution width (RBC) [Ratio] 17.1 % High 11.5-14.5 [facility] Comment on above: Performed By: #### C A19O, LUPUS #### The performing lab is in the report. #### NSEO #### [facility] #### HEMDF, LDH3, BMP3, MG3, PT, CEA2 #### [address] [place] [address] #### B2GPM, B2GPA, B2GPG #### [address] Hematocrit (Bld) [Volume fraction] 33.4 % Low 40.0-52.0 [facility] Comment on above: Performed By: #### C A19O, LUPUS #### The performing lab is in the report. #### NSEO #### [facility] #### HEMDF, LDH3, BMP3, MG3, PT, CEA2 #### [address] [place] [address] #### B2GPM, B2GPA, B2GPG #### [address] Hemoglobin (Bld) [Mass/Vol] 11.0 g/dL Low 13.0-18.0 [facility] Comment on above: Performed By: #### C A19O, LUPUS #### The performing lab is in the report. #### NSEO #### [facility] #### HEMDF, LDH3, BMP3, MG3, PT, CEA2 #### [address] [place] [address] #### B2GPM, B2GPA, B2GPG #### [address] MCH (RBC) [Entitic mass] 27.8 pg Normal 26.0-34.0 [facility] Comment on above: Performed By: #### C A19O, LUPUS #### The performing lab is in the report. #### NSEO #### [facility] #### HEMDF, LDH3, BMP3, MG3, PT, CEA2 #### [facility] [address] [place], [place] #### B2GPM, B2GPA, B2GPG #### [address] MCHC 32.8 % Normal 32.0-36.0 [facility] Comment on above: Performed By: #### C A19O, LUPUS #### The performing lab is in the report. #### NSEO #### [facility] #### HEMDF, LDH3, BMP3, MG3, PT, CEA2 #### [address] [place], [place] #### B2GPM, B2GPA, B2GPG #### [address] MCV (RBC) [Entitic vol] 84.8 fL Normal 80.0-98.0 [facility] Comment on above: Performed By: #### C A19O, LUPUS #### The performing lab is in the report. #### NSEO #### [facility] #### HEMDF, LDH3, BMP3, MG3, PT, CEA2 #### [address] [place], [place] #### B2GPM, B2GPA, B2GPG #### [address] Platelet mean volume (Bld) [Entitic vol] 8.3 fL Normal 7.4-12.4 [facility] Comment on above: Result Comment: MPV is a calculated measurement using platelet volume ratio. Performed By: #### C A19O, LUPUS #### The performing lab is in the report. #### NSEO #### [facility] #### HEMDF, LDH3, BMP3, MG3, PT, CEA2 #### [place] [address] [place] [address] #### B2GPM, B2GPA, B2GPG #### [address] [phone] Platelets (Bld) [#/Vol] 344 10*3/uL Normal 140-440 [facility] Comment on above: Performed By: #### C A19O, LUPUS #### The performing lab is in the report. #### NSEO #### [facility] #### HEMDF, LDH3, BMP3, MG3, PT, CEA2 #### [address] [place] [address] #### B2GPM, B2GPA, B2GPG #### [address] RBC (Bld) [#/Vol] 3.94 10*6/uL Low 4.40-5.90 [facility] Comment on above: Performed By: #### C A19O, LUPUS #### The performing lab is in the report. #### NSEO #### [facility] #### HEMDF, LDH3, BMP3, MG3, PT, CEA2 #### [address] [place] [address] #### B2GPM, B2GPA, B2GPG #### [address] WBC (Bld) [#/Vol] 10.0 10*3/uL Normal 3.6-10.7 [facility] Comment on above: Performed By: #### C A19O, LUPUS #### The performing lab is in the report. #### NSEO #### [facility] #### HEMDF, LDH3, BMP3, MG3, PT, CEA2 #### [facility] [address] [place] [address] #### B2GPM, B2GPA, B2GPG #### [facility] [address] [facility] [place] [address] Neuron Specific Enolaseon Neuron Specific Enolase 20.8 [...] Serum This assay is performed using the [employer] NSE Kryptor Immunoassay. Results obtained with different assay methods or kits cannot be used interchangeably. Results cannot be interpreted as absolute evidence of the presence or absence of malignant disease. This test was developed and its performance characteristics determined by [employer]. It has not been cleared or approved by the [place] Food and Drug Administration. This test was performed in a CLIA certified laboratory and is intended for clinical purposes. Performed By: #### C OVAG #### [facility] [address] [place] [address] Neuron specific enolase (NSE )on 10-28-2021 Neuron Specific Enolase 20.8 [facility] Work Phone: Comment on above: Neuron Specific Enol ase, Serum 20.8 ng/mL H (Ref Interval: <=12.7) NSE and Hgb are elevated in the specimen. The elevated NSE may be a result of hemolysis as NSE is expressed in red blood cells. Interpret results with caution. INTERPRETIVE INFORMATION: Neuron Specific Enolase in Serum This assay is performed using the [employer] NSE Kryptor Immunoassay. Results obtained with different assay methods or kits cannot be used interchangeably. Results cannot be interpreted as absolute evidence of the presence or absence of malignant disease. This test was developed and its performance characteristics determined by [employer]. It has not been cleared or approved by the [place] Food and Drug Administration. This test was performed in a CLIA certified laboratory and is intended for clinical purposes. 1 [facility] Work Phone: Prothrombin Timeon 2 INR [...] CEA2 #### [facility] [address] [place] [address] #### B2GPM, B2GPA, B2GPG #### [address] PT Coag (PPP) [Time] 30.8 s High 9.0-12.0 [facility] Comment on above: Result Comment: . Performed By: #### C A19O, LUPUS #### The performing lab is in the report. #### NSEO #### [facility] #### HEMDF, LDH3, BMP3, MG3, PT, CEA2 #### [facility] [address] [place] [address] #### B2GPM, B2GPA, B2GPG #### [address] Protime-INRon 10-28-2021 INR Coag (Bld) [Relative time] 3.1 {INR} High [facility] Work Phone: Comment on above: Recommended [...] Interpretation and review of laboratory results Abnormal [facility] Work Phone: PT Coag (PPP) [Time] 30.8 s High 9.0 - 12.0 s [facility] Work Phone: Comment on above: . Test Performed by [facility], [address] [place], [place], [place] [address] [place] [address] LAB [facility] Work Phone: MRI BRAIN WO CONTRASTon - Patient Name: ANDREW SIFUENTES [facility] ACCESSION EXAM DATE/TIME PROCEDURE ORDERING PROVIDER [id number] 10/27/2021 13:14 EDT MRI Brain w/o Contrast UNASSIGNED, UNASSIGNED CPT code 27842 Reason For Exam (MRI Brain w/o Contrast) stroke Patient has BLOW MOLD OPERATOR shunt in place, please follow Radiology [...] RAMOS Transcribed Date and Time: 10/27/2021 2:39 [facility] Venus Loyd MD - 10/27/2021 Patient Name: ANDREW SIFUENTES [facility] ACCESSION EXAM DATE/TIME PROCEDURE ORDERING PROVIDER [id number] 10/27/2021 13:14 EDT MRI Brain w/o Contrast UNASSIGNED, UNASSIGNED CPT code 58206 Reason For Exam (MRI Brain w/o Contrast) stroke Patient has BLOW MOLD OPERATOR shunt in place, please follow Radiology [...] Brain w/o Contrast Patient [facility]: [id number] Resonance Imaging ACCESSION EXAM DATE/TIME PROCEDURE ORDERING PROVIDER [id number] 10/27/2021 13:14 EDT MRI Brain w/o Contrast UNASSIGNED, UNASSIGNED CPT code 43300 Reason For Exam (MRI Brain w/o Contrast) stroke Patient has BLOW MOLD OPERATOR shunt in place, please follow Radiology [...] [facility] [address] [place] [address] PT Coag (PPP) [Time] 21.9 s High 9.0-12.0 [facility] Work Phone: Comment on above: . Result Comment: . Performed By: #### P T #### [facility] [address] [place] [address] Protime-INRon 10-27-2021 INR Coag (Bld) [Relative time] 2.1 {INR} High [facility] Work Phone: Comment on above: Recommended [...] Interpretation and review of laboratory results Abnormal [facility] Work Phone: Test Performed by [facility], [address] [place], [place], [place] [id number] [place] [address] LAB [facility] Work Phone: CT HEAD WO CONTRASTon 2021 Patient Name: ANDREW SIFUENTES Computed Tomography ACCESSION EXAM DATE/TIME PROCEDURE ORDERING PROVIDER [id number] 10/26/2021 11:[address] Head or Brain w/o JUNIE PINEDA, SARINA Contrast CPT code 64084 Reason For Exam (CT Head or Brain w/o Contrast) hydrocephalus. thank you Report CLINICAL INFORMATION: Hydrocephalus. Shunt. 3 mm axial cuts through the head are obtained without IV contrast. The examination is compared to a previous study dated 06/29/2014. FINDINGS: Old BLOW MOLD OPERATOR shunt tubing is noted bilaterally. The [...] are clear. IMPRESSION: 1. Old and new BLOW MOLD OPERATOR shunt tubing. 2. No hydrocephalus. 3. [...] Tomography ACCESSION EXAM DATE/TIME PROCEDURE ORDERING PROVIDER [id number] 10/26/2021 11:[address] Head or Brain w/o EDWIN, JUNIE, SARINA Contrast CPT code 95663 Reason For Exam (CT Head or Brain w/o Contrast) hydrocephalus. thank you Report CLINICAL INFORMATION: Hydrocephalus. Shunt. 3 mm axial cuts through the head are obtained without IV contrast. The examination is compared to a previous study dated 06/29/2014. FINDINGS: Old BLOW MOLD OPERATOR shunt tubing is noted bilaterally. The [...] are clear. IMPRESSION: 1. Old and new BLOW MOLD OPERATOR shunt tubing. 2. No hydrocephalus. 3. Atrophy and evidence of small-vessel ischemic disease. 4. No CT evidence of an acute intracranial process. Report Dictated on --- Final --- Dictating Physician: MD SOLANO JEFFREY Signed Date and Time: 10/26/2021 11:42 am Signed by: MD SOLANO JEFFREY Transcribed Date and Time: 10/26/2021 11:43 [facility] Work Phone: CT HEAD WO CONTRASTOrdered B y: Albert Solano on 10-26-2021 [facility] Work Phone: CT Head or Brain w/o Contras ton 10-26-2021 CT Head or Brain w/o Contrast Patient [facility]: [id number] Computed Tomography ACCESSION EXAM DATE/TIME PROCEDURE ORDERING PROVIDER [id number] 10/26/2021 11:[address] Head or Brain w/o EDWIN, SECURITY ANALYST, SARINA Contrast CPT code 04858 Reason For Exam (CT Head or Brain w/o Contrast) hydrocephalus. thank you Report CLINICAL INFORMATION: Hydrocephalus. Shunt. 3 mm axial cuts through the head are obtained without IV contrast. The examination is compared to a previous study dated 06/29/2014. FINDINGS: Old BLOW MOLD OPERATOR shunt tubing is noted bilaterally. The [...] are clear. IMPRESSION: 1. Old and new BLOW MOLD OPERATOR shunt tubing. 2. No hydrocephalus. 3. [...] 10-26 Bony Tompkins MD 10/26/2021 4:06 PM [facility] [address] [place] [address] [id number] ROUTINE EEG REPORT Patient Name: Andrew Sifuentes : 1950 Date of Study: 10/26/2021 Duration Recorded: 23 minutes EEG#: [id number] STORE DIRECTOR: CASTRO PROVIDER REQUESTING STUDY: Dr. Barreto REASON FOR EXAM: seizures HISTORY: Andrew Sifuentes is a 71 y.o. 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 At present patient is awake, follows commands, was able to tell his name, and that he was in hospital but not oriented to time. Per documentation patient had NCSE in May 2021, was on Vimpat, but it was discontinued as there was no evidence of recurrent seizures in July 2021 by Neurology at [facility], per daughter patient was on Dilantin for 31 yrs. Per daughter patient had seizures in the past and also felt he had staring episodes this morning. Leonid daughter patient has been essentially bed bound in [place] since May 2021 but prior to that [...] study with video was carried out at [facility]. Scalp electrodes were positioned in person by an radiologic technologist, following patient education, according to the 10-20 International system of electrode placement and maintained for integrity and quality of the recording. EEG data with video was recorded continuously and digitally stored. The radiologic technologist reviewed all automated detections and manual [...] No normal vari (more content not included)... [employer] Work Phone: [employer] Work Phone: No Panel Informationon 10-26 Radiology Study observation (narrative) [employer] Work Phone: Prothrombin Timeon 2 INR 1.9 High 0.9-1.1 [facility] Comment on above: Result Comment: Harry mmended [...] Infarction Performed By: #### C OVAG #### [facility] Sevar Consult [facility] [address] [place] [address] PT Coag (PPP) [Time] 19.7 s High 9.0-12.0 [facility] Sevar Consult [facility] Comment on above: Result Comment: . Performed By: #### C OVAG #### [facility] [address] [place] [address] Protime-INRon 10-26-2021 INR Coag (Bld) [Relative time] 1.9 {INR} High [facility] Work Phone: Comment on above: Recommended [...] Interpretation and review of laboratory results Abnormal [facility] Work Phone: PT Coag (PPP) [Time] 19.7 s High 9.0 - 12.0 s [facility] Work Phone: Comment on above: . Test Performed by [facility], [address], [place], [place] [address] [facility] Work Phone: CA 19-9on 10-25-2021 CA 19-9 17 U/mL Normal <=35 [facility] Work Phone: Comment on above: INTERPRETIVE [...] or absence of malignant disease. Performed By: [facility] [address] [place] [address] [employer] Supervisor: Quiana Castro MD Result Comment: INTE RPRETIVE [...] or absence of malignant disease. Performed By: [facility] [address] [place] [address] [employer] Supervisor: Quiana Castro MD Performed By: #### C OVAG #### [facility] [address] [place] [address] Cancer Antigen 19-9on 2021 [facility] Work Phone: Prothrombin Timeon 2 INR [...] [facility] [address] [place] [address] PT Coag (PPP) [Time] 15.6 s High 9.0-12.0 [facility] Comment on above: Result Comment: . Performed By: #### P T #### [facility] [address] [place] [address] Protime-INRon 10-25-2021 INR Coag (Bld) [Relative time] 1.5 {INR} High [facility] Work Phone: Comment on above: Recommended [...] Interpretation and review of laboratory results Abnormal [employer] Work Phone: PT Coag (PPP) [Time] 15.6 s High 9.0 - 12.0 s [employer] Work Phone: Comment on above: . Test Performed by [facility], [address] [place], [place], [place] [address] [facility] Work Phone: B-2 Glycoprotein (IGA)on Beta-2 Glyco 1 IgA <2.0 U/mL [facility] Work Phone: Comment on above: Interpretive Informa tion: Results equal to or greater than 20 U/mL = POSITIVE Results less than 20 U/mL = NEGATIVE B2 Glycoprotein I (IgM) Abon 10-24-2021 Beta-2 Glyco 1 IgM <1.5 U/mL [facility] Work Phone: Comment on above: Interpretive Informa tion: Results equal to or greater than 20 U/mL = POSITIVE Results less than 20 U/mL = NEGATIVE B2 Glycoprotein I Igg Abon 0 10-24-2021 Beta-2 Glyco 1 IgG <1.4 U/mL [facility] Work Phone: Comment on above: Interpretive Informa tion: Results equal to or greater than 20 U/mL = POSITIVE Results less than 20 U/mL = NEGATIVE Basic Metabolic Panelon --2021 Anion gap [Moles/Vol] 8 mmol/L Normal 3-13 [facility] Comment on above: Performed By: #### C A19O, LUPUS #### The performing lab is in the report. #### NSEO #### [facility] #### HEMDF, LDH3, BMP3, MG3, PT, CEA2 #### [facility] [address] [place] [address] #### B2GPM, B2GPA, B2GPG #### [address] [phone] Calcium [Mass/Vol] 8.8 mg/dL Normal 8.4-10.4 [facility] Comment on above: Performed By: #### C A19O, LUPUS #### The performing lab is in the report. #### NSEO #### [facility] #### HEMDF, LDH3, BMP3, MG3, PT, CEA2 #### [facility] [address] [place] [address] #### B2GPM, B2GPA, B2GPG #### [address] [phone] CO2 [Moles/Vol] 25 mmol/L Normal 22-30 [facility] Comment on above: Performed By: #### C A19O, LUPUS #### The performing lab is in the report. #### NSEO #### [facility] #### HEMDF, LDH3, BMP3, MG3, PT, CEA2 #### [facility] [address] [place] [address] #### B2GPM, B2GPA, B2GPG #### [address] Creatinine [Mass/Vol] 0.74 mg/dL Normal 0.52-1.25 [facility] Comment on above: Performed By: #### C A19O, LUPUS #### The performing lab is in the report. #### NSEO #### [facility] #### HEMDF, LDH3, BMP3, MG3, PT, CEA2 #### [facility] [address] [place] [address] #### B2GPM, B2GPA, B2GPG #### [address] eGFR OTHER > 90.0 Normal >60 [...] [facility] [address] [place] [address] #### B2GPM, B2GPA, B2GPG #### [address] GFR/1.73 sq M.predicted among blacks MDRD (S/P/Bld) [Vol rate/Area] mL/min/{1.73_m2} Normal >60 [facility] Comment on above: Performed By: #### C A19O, LUPUS #### The performing lab is in the report. #### NSEO #### [facility] #### HEMDF, LDH3, BMP3, MG3, PT, CEA2 #### [facility] [address] [place] [address] #### B2GPM, B2GPA, B2GPG #### [address] Glucose [Mass/Vol] 116 mg/dL High 70-100 [facility] Comment on above: Performed By: #### C A19O, LUPUS #### The performing lab is in the report. #### NSEO #### [facility] #### HEMDF, LDH3, BMP3, MG3, PT, CEA2 #### [facility] [address] [place] [address] #### B2GPM, B2GPA, B2GPG #### [address] Urea nitrogen [Mass/Vol] 19 mg/dL High 7-17 [facility] Comment on above: Performed By: #### C A19O, LUPUS #### The performing lab is in the report. #### NSEO #### [facility] #### HEMDF, LDH3, BMP3, MG3, PT, CEA2 #### [facility] [address] [place] [address] #### B2GPM, B2GPA, B2GPG #### [address] Chloride [Moles/Vol] 107 mmol/L Normal 98-107 [facility] Comment on above: Performed By: #### C A19O, LUPUS #### The performing lab is in the report. #### NSEO #### [facility] #### HEMDF, LDH3, BMP3, MG3, PT, CEA2 #### [place] [address] [place] [address] #### B2GPM, B2GPA, B2GPG #### [address] Potassium [Moles/Vol] 3.9 mmol/L Normal 3.5-5.1 [facility] Comment on above: Performed By: #### C A19O, LUPUS #### The performing lab is in the report. #### NSEO #### [facility] #### HEMDF, LDH3, BMP3, MG3, PT, CEA2 #### [address] [place] [address] #### B2GPM, B2GPA, B2GPG #### [address] Sodium [Moles/Vol] 140 mmol/L Normal 135-145 [facility] Comment on above: Performed By: #### C A19O, LUPUS #### The performing lab is in the report. #### NSEO #### [facility] #### HEMDF, LDH3, BMP3, MG3, PT, CEA2 #### [address] [place] [address] #### B2GPM, B2GPA, B2GPG #### [address] Anion gap [Moles/Vol] 8 mmol/L 3 - 13 mmol/L [facility] Calcium [Mass/Vol] 8.8 mg/dL 8.4 - 10. 4 mg/dL [facility] Chloride [Moles/Vol] 107 mmol/L 98 - 10 7 mmol/L [facility] CO2 [Moles/Vol] 25 mmol/L 22 - 30 mmol/L [facility] Creatinine [Mass/Vol] 0.74 mg/dL 0.52 - 1.25 mg/dL [facility] EGFR IF NonAfrican Bahamian >90.0 >60 mL/min [facility] Comment on above: [...] 116 mg/dL High 70 - 100 mg/dL [facility] Interpretation and review of laboratory results Abnormal [facility] Potassium [Moles/Vol] 3.9 mmol/L 3.5 - 5.1 mmol/L [facility] Sodium [Moles/Vol] 140 mmol/L 135 - 145 mmol/L [facility] Urea nitrogen (BldV) [Mass/Vol] 19 mg/dL High 7 - 17 mg/dL [facility] Test Performed by [facility], [address] [place], [place], [place] [id number] [place] [address] LAB [facility] Beta-2 Glycoprotein I IgAon 10-24-2021 Beta-2 Glycoprotein I IgA < 2.0 Normal [facility] Comment on above: Result Comment: Inte rpretive Information: Results equal to or greater than 20 U/mL = POSITIVE Results less than 20 U/mL = NEGATIVE Performed By: #### C OVAG #### [facility] [address] [place] [address] Beta-2 Glycoprotein I IgGon 10-24-2021 Beta-2 Glycoprotein I IgG < 1.4 Normal [facility] Comment on above: Result Comment: Inte rpretive Information: Results equal to or greater than 20 U/mL = POSITIVE Results less than 20 U/mL = NEGATIVE Performed By: #### C OVAG #### [facility] [address] [place] [address] Beta-2 Glycoprotein I IgMon 10-24-2021 Beta-2 Glycoprotein I IgM < 1.5 Normal [facility] Comment on above: Result Comment: Inte rpretive Information: Results equal to or greater than 20 U/mL = POSITIVE Results less than 20 U/mL = NEGATIVE Performed By: #### C OVAG #### [facility] [address] [place] [address] No Panel Informationon 10-24 [facility] Test Performed by [facility], [facility] [place] [address] [facility] Work Phone: PROTEIN C FUNCTIONALon 10-24 Interpretation and review of laboratory results Abnormal [facility] Protein C-Functional 185 % High 83 - 168 % [facility] Comment on above: INTERPRETIVE INFORMA TION: [...] reference intervals for this test in the [facility] ([employer]). Performed by [facility], [address] [facility] [address] www.[employer], Quiana Castro MD - Lab. Director Protein C, Functionalon - Protein C, Functional 185 % High 83-168 [facility] Comment on above: Result Comment: INTE [...] reference intervals for this test in the [facility] ([employer]). Performed by [facility], [address] [facility],[place] [id number] www.[employer], Quiana Castro MD - Lab. Director Performed By: #### P T #### [facility] [address] [place] [address] Protein S, Functionalon - Protein S, Functional 138 % Normal 66-143 [facility] Comment on above: INTERPRETIVE INFORMA TION: Protein [...] reference intervals for this test in the [facility] ([employer]). Performed by [facility], [address] [facility] www.[employer], Quiana Castro MD - Lab. Director Result [...] reference intervals for this test in the [facility] ([employer]). Performed by [facility], [address] [facility],[place] [id number] www.[employer], Quiana Castro MD - Lab. Director Performed By: #### P T #### [facility] [address] [place] [address] Prothrombin Timeon INR 1.2 High 0.9-1.1 [facility] [...] [facility] [address] [place] [address] #### B2GPM, B2GPA, B2GPG #### [address] [phone] PT Coag (PPP) [Time] 12.6 s High 9.0-12.0 [facility] Comment on above: Result Comment: . Performed By: #### C A19O, LUPUS #### The performing lab is in the report. #### NSEO #### [facility] #### HEMDF, LDH3, BMP3, MG3, PT, CEA2 #### [facility] [address] [place] [address] #### B2GPM, B2GPA, B2GPG #### [address] [id number] Protime-INRon 10-24-2021 INR Coag (Bld) [Relative time] 1.2 {INR} High [facility] Comment on above: Recommended Anticoag ulant [...] Interpretation and review of laboratory results Abnormal [facility] PT Coag (PPP) [Time] 12.6 s High 9.0 - 12.0 s [facility] Comment on above: . Test Performed by [facility], [address] [place] [address] [facility] Basic Metabolic Panelon 10-05 Anion gap [Moles/Vol] 10 mmol/L Normal 3-13 [facility] Comment on above: Performed By: #### C A19O, LUPUS #### The performing lab is in the report. #### NSEO #### [facility] #### HEMDF, LDH3, BMP3, MG3, PT, CEA2 #### [place] [address] [place] [address] #### B2GPM, B2GPA, B2GPG #### [address] Calcium [Mass/Vol] 9.6 mg/dL Normal 8.4-10.4 [facility] Comment on above: Performed By: #### C A19O, LUPUS #### The performing lab is in the report. #### NSEO #### [facility] #### HEMDF, LDH3, BMP3, MG3, PT, CEA2 #### [address] [place] [address] #### B2GPM, B2GPA, B2GPG #### [address] CO2 [Moles/Vol] 27 mmol/L Normal 22-30 [facility] Comment on above: Performed By: #### C A19O, LUPUS #### The performing lab is in the report. #### NSEO #### [facility] #### HEMDF, LDH3, BMP3, MG3, PT, CEA2 #### [address] [place] [address] #### B2GPM, B2GPA, B2GPG #### [address] Glucose [Mass/Vol] 109 mg/dL High 70-100 [facility] Comment on above: Performed By: #### C A19O, LUPUS #### The performing lab is in the report. #### NSEO #### [facility] #### HEMDF, LDH3, BMP3, MG3, PT, CEA2 #### [place] [address] [place] [address] #### B2GPM, B2GPA, B2GPG #### [address] Urea nitrogen [Mass/Vol] 18 mg/dL High 7-17 [facility] Comment on above: Performed By: #### C A19O, LUPUS #### The performing lab is in the report. #### NSEO #### [facility] #### HEMDF, LDH3, BMP3, MG3, PT, CEA2 #### [address] [place] #### B2GPM, B2GPA, B2GPG #### [address] Creatinine [Mass/Vol] 0.82 mg/dL Normal 0.52-1.25 [facility] Comment on above: Performed By: #### C A19O, LUPUS #### The performing lab is in the report. #### NSEO #### [facility] #### HEMDF, LDH3, BMP3, MG3, PT, CEA2 #### [address] [place] [address] #### B2GPM, B2GPA, B2GPG #### [address] GFR/1.73 sq M.predicted among blacks MDRD (S/P/Bld) [Vol rate/Area] mL/min/{1.73_m2} Normal >60 [facility] Comment on above: Performed By: #### C A19O, LUPUS #### The performing lab is in the report. #### NSEO #### [facility] #### HEMDF, LDH3, BMP3, MG3, PT, CEA2 #### [place] [address] [place] #### B2GPM, B2GPA, B2GPG #### [address] GFR/1.73 sq M.predicted among non-blacks MDRD [...] CEA2 #### [facility] [address] [place], [place] #### B2GPM, B2GPA, B2GPG #### [address] Chloride [Moles/Vol] 104 mmol/L Normal 98-107 [facility] Comment on above: Performed By: #### C A19O, LUPUS #### The performing lab is in the report. #### NSEO #### [facility] #### HEMDF, LDH3, BMP3, MG3, PT, CEA2 #### [facility] [address] [place], [place] #### B2GPM, B2GPA, B2GPG #### [address] Potassium [Moles/Vol] 3.9 mmol/L Normal 3.5-5.1 [facility] Comment on above: Performed By: #### C A19O, LUPUS #### The performing lab is in the report. #### NSEO #### [facility] #### HEMDF, LDH3, BMP3, MG3, PT, CEA2 #### [facility] [address] [place] [address] #### B2GPM, B2GPA, B2GPG #### [address] [phone] Sodium [Moles/Vol] 142 mmol/L Normal 135-145 [facility] Comment on above: Performed By: #### C A19O, LUPUS #### The performing lab is in the report. #### NSEO #### [facility] #### HEMDF, LDH3, BMP3, MG3, PT, CEA2 #### [facility] [address] [place] [address] #### B2GPM, B2GPA, B2GPG #### [facility] [address] [place] [address] Anion gap [Moles/Vol] 10 mmol/L 3 - 13 mmol/L [facility] Work Phone: Calcium [Mass/Vol] 9.6 mg/dL 8.4 - 10. 4 mg/dL [facility] Work Phone: Chloride [Moles/Vol] 104 mmol/L 98 - 10 7 mmol/L [facility] Work Phone: CO2 [Moles/Vol] 27 mmol/L 22 - 30 mmol/L [facility] Work Phone: Creatinine [Mass/Vol] 0.82 mg/dL 0.52 - 1.25 mg/dL [facility] Work Phone: EGFR IF NonAfrican Bahamian 89.9 mL/min >60 [facility] Work Phone: Comment on above: KDIGO [...] MDRD (S/P/Bld) [Vol rate/Area] mL/min/{1.73_m2} >60 mL/min [employer] Work Phone: 222 Glucose [Mass/Vol] 109 mg/dL High 70 - 100 mg/dL [facility] Work Phone: 222 Interpretation and review of laboratory results Abnormal [facility] Work Phone: 222 Potassium [Moles/Vol] 3.9 mmol/L 3.5 - 5.1 mmol/L [facility] Work Phone: 222 Sodium [Moles/Vol] 142 mmol/L 135 - 145 mmol/L [facility] Work Phone: 222 Urea nitrogen (BldV) [Mass/Vol] 18 mg/dL High 7 - 17 mg/dL [facility] Work Phone: 222 CBC with Auto Differentialon 10-23-2021 Absolute Baso # 0.1 10*3/uL 0.0 - 0.2 10*3/uL [facility] Work Phone: 222 Absolute Neut # 6.6 10*3/uL 1.8 - 7.0 10*3/uL [employer] Work Phone: 222 Basophils/100 WBC (Bld) 1.1 % 0.0 - 2.0 % [facility] Work Phone: 222 Eosinophils (Bld) [#/Vol] 0.4 10*3/uL 0.0 - 0.5 10*3/uL [employer] Work Phone: 222 Eosinophils/100 WBC (Bld) 3.9 % 1.0 - 6.0 % [employer] Work Phone: 1() 222 Granulocytes/100 WBC (Bld) 64.0 % 40.0 - 80.0 % [employer] Work Phone: 1 222 Hematocrit (Bld) [Volume fraction] 35.1 % Low 40.0 - 52.0 % [employer] Work Phone: 1 222 Hemoglobin (Bld) [Mass/Vol] 11.6 g/dL Low 13.0 - 18.0 g/dL [employer] Work Phone: 1) 222 Interpretation and review of laboratory results Abnormal [employer] Work Phone: 1) 222 Lymphocytes (Bld) [#/Vol] 2.6 10*3/uL 1.0 - 4.3 10*3/uL [employer] Work Phone: 1) 222 Lymphocytes/100 WBC (Bld) 25.0 % 20.0 - 40.0 % [employer] Phone: 222 MCH (RBC) [Entitic mass] 28.4 pg 26.0 - 34.0 pg [employer] Work Phone: 1) 222 MCHC (RBC) [Mass/Vol] 33.1 % 32.0 - 36.0 % [employer] Work Phone: 1 222 MCV (RBC) [Entitic vol] 85.9 fL 80.0 - 98.0 fL [employer] Work Phone: 222 Monocytes (Bld) [#/Vol] 0.6 10*3/uL 0.0 - 0.8 10*3/uL [employer] Work Phone: ) 222 Monocytes/100 WBC (Bld) 6.0 % 2.0 - 10.0 % [employer] Work Phone: 1) 222 Platelet distribution width (Bld) [Ratio] 17.4 % High 11.5 - 14.5 % [employer] Phone: Platelet mean volume (Bld) [Entitic vol] 8.1 fL 7.4 - 12.4 fL [employer] Work Phone: 1 222 Comment on above: MPV is a calculated measurement using platelet volume ratio. Platelets (Bld) [#/Vol] 450 10*3/uL High 140 - 440 10*3/uL [facility] Work Phone: RBC (Bld) [#/Vol] 4.08 10*6/uL Low 4.40 - 5.9 0 10*6/uL [facility] Work Phone: WBC (Bld) [#/Vol] 10.3 10*3/uL 3.6 - 10.7 10*3/uL [facility] Work Phone: Test Performed by [facility], [address] [place], [place] [id number] [place] [address] LAB [employer] Work Phone: CEAon 10-23-2021 CEA 0.8 ng/mL 0.0 - 3.0 ng/mL [facility] Work Phone: Test Performed by [facility], [address] [place], [place] [id number] [place] [address] LAB [facility] Work Phone: Carcinoembryonic Agon 2021 Carcinoembryonic Ag. 0.8 ng/mL Normal 0.0-3.0 [facility] Comment on above: Performed By: #### C A19O, LUPUS #### The performing lab is in the report. #### NSEO #### [facility] #### HEMDF, LDH3, BMP3, MG3, PT, CEA2 #### [facility] [address] [place] [address] #### B2GPM, B2GPA, B2GPG #### [facility] [address] [place] [address] Hemogram w/ Autodiffon 10-23 Abs Baso Cnt 0.1 10*3/uL Normal 0.0-0.2 [facility] Comment on above: Performed By: #### C A19O, LUPUS #### The performing lab is in the report. #### NSEO #### [facility] #### HEMDF, LDH3, BMP3, MG3, PT, CEA2 #### [facility] [address] [place] [address] #### B2GPM, B2GPA, B2GPG #### [address] [id number] Abs Neutrophile Cnt 6.6 10*3/uL Normal 1.8-7.0 [facility] Comment on above: Performed By: #### C A19O, LUPUS #### The performing lab is in the report. #### NSEO #### [facility] #### HEMDF, LDH3, BMP3, MG3, PT, CEA2 #### [facility] [address] [place] [address] #### B2GPM, B2GPA, B2GPG #### [address] Basophils/100 WBC (Bld) 1.1 % Normal 0.0-2.0 [facility] Comment on above: Performed By: #### C A19O, LUPUS #### The performing lab is in the report. #### NSEO #### [facility] #### HEMDF, LDH3, BMP3, MG3, PT, CEA2 #### [facility] [address] [place] [address] #### B2GPM, B2GPA, B2GPG #### [address] Eosinophils (Bld) [#/Vol] 0.4 10*3/uL Normal 0.0-0.5 [facility] Comment on above: Performed By: #### C A19O, LUPUS #### The performing lab is in the report. #### NSEO #### [facility] #### HEMDF, LDH3, BMP3, MG3, PT, CEA2 #### [place] [address] [place] [address] #### B2GPM, B2GPA, B2GPG #### [address] [address] Eosinophils/100 WBC (Bld) 3.9 % Normal 1.0-6.0 [facility] Comment on above: Performed By: #### C A19O, LUPUS #### The performing lab is in the report. #### NSEO #### [facility] #### HEMDF, LDH3, BMP3, MG3, PT, CEA2 #### [address] [place] [address] #### B2GPM, B2GPA, B2GPG #### [address] Erythrocyte distribution width (RBC) [Ratio] 17.4 % High 11.5-14.5 [facility] Comment on above: Performed By: #### C A19O, LUPUS #### The performing lab is in the report. #### NSEO #### [facility] #### HEMDF, LDH3, BMP3, MG3, PT, CEA2 #### [address] [place], [place] #### B2GPM, B2GPA, B2GPG #### [address] Granulocytes/100 WBC (Bld) 64.0 % Normal 40.0-80.0 [facility] Comment on above: Performed By: #### C A19O, LUPUS #### The performing lab is in the report. #### NSEO #### [facility] #### HEMDF, LDH3, BMP3, MG3, PT, CEA2 #### [address] [place] [address] #### B2GPM, B2GPA, B2GPG #### [address] Hematocrit (Bld) [Volume fraction] 35.1 % Low 40.0-52.0 [facility] Comment on above: Performed By: #### C A19O, LUPUS #### The performing lab is in the report. #### NSEO #### [facility] #### HEMDF, LDH3, BMP3, MG3, PT, CEA2 #### [facility] [address] [place] #### B2GPM, B2GPA, B2GPG #### [address] Hemoglobin (Bld) [Mass/Vol] 11.6 g/dL Low 13.0-18.0 [facility] Comment on above: Performed By: #### C A19O, LUPUS #### The performing lab is in the report. #### NSEO #### [facility] #### HEMDF, LDH3, BMP3, MG3, PT, CEA2 #### [place] [address] [place] #### B2GPM, B2GPA, B2GPG #### [address] Lymphocytes (Bld) [#/Vol] 2.6 10*3/uL Normal 1.0-4.3 [facility] Comment on above: Performed By: #### C A19O, LUPUS #### The performing lab is in the report. #### NSEO #### [facility] #### HEMDF, LDH3, BMP3, MG3, PT, CEA2 #### [address] [place] #### B2GPM, B2GPA, B2GPG #### [address] Lymphocytes/100 WBC (Bld) 25.0 % Normal 20.0-40.0 [facility] Comment on above: Performed By: #### C A19O, LUPUS #### The performing lab is in the report. #### NSEO #### [facility] #### HEMDF, LDH3, BMP3, MG3, PT, CEA2 #### [place] [address] [place] #### B2GPM, B2GPA, B2GPG #### [address] [place] MCH (RBC) [Entitic mass] 28.4 pg Normal 26.0-34.0 [facility] Comment on above: Performed By: #### C A19O, LUPUS #### The performing lab is in the report. #### NSEO #### [facility] #### HEMDF, LDH3, BMP3, MG3, PT, CEA2 #### [facility] [address] [place] #### B2GPM, B2GPA, B2GPG #### [address] MCHC 33.1 % Normal 32.0-36.0 [facility] Comment on above: Performed By: #### C A19O, LUPUS #### The performing lab is in the report. #### NSEO #### [facility] #### HEMDF, LDH3, BMP3, MG3, PT, CEA2 #### [address] [place] #### B2GPM, B2GPA, B2GPG #### [address] MCV (RBC) [Entitic vol] 85.9 fL Normal 80.0-98.0 [facility] Comment on above: Performed By: #### C A19O, LUPUS #### The performing lab is in the report. #### NSEO #### [facility] #### HEMDF, LDH3, BMP3, MG3, PT, CEA2 #### [facility] [address] [place], [place] #### B2GPM, B2GPA, B2GPG #### [address] Monocytes (Bld) [#/Vol] 0.6 10*3/uL Normal 0.0-0.8 [facility] Comment on above: Performed By: #### C A19O, LUPUS #### The performing lab is in the report. #### NSEO #### [facility] #### HEMDF, LDH3, BMP3, MG3, PT, CEA2 #### [facility] [address] [place] #### B2GPM, B2GPA, B2GPG #### [address] Monocytes/100 WBC (Bld) 6.0 % Normal 2.0-10.0 [facility] Comment on above: Performed By: #### C A19O, LUPUS #### The performing lab is in the report. #### NSEO #### [facility] #### HEMDF, LDH3, BMP3, MG3, PT, CEA2 #### [facility] [address] [facility] [place] #### B2GPM, B2GPA, B2GPG #### [address] Platelet mean volume (Bld) [Entitic vol] 8.1 fL Normal 7.4-12.4 [facility] Comment on above: Result Comment: MPV is a calculated measurement using platelet volume ratio. Performed By: #### C A19O, LUPUS #### The performing lab is in the report. #### NSEO #### [facility] #### HEMDF, LDH3, BMP3, MG3, PT, CEA2 #### [address] [place], [place] #### B2GPM, B2GPA, B2GPG #### [address] Platelets (Bld) [#/Vol] 450 10*3/uL High 140-440 [facility] Comment on above: Performed By: #### C A19O, LUPUS #### The performing lab is in the report. #### NSEO #### [facility] #### HEMDF, LDH3, BMP3, MG3, PT, CEA2 #### [address] [place] #### B2GPM, B2GPA, B2GPG #### [address] [address] RBC (Bld) [#/Vol] 4.08 10*6/uL Low 4.40-5.90 [facility] Comment on above: Performed By: #### C A19O, LUPUS #### The performing lab is in the report. #### NSEO #### [facility] #### HEMDF, LDH3, BMP3, MG3, PT, CEA2 #### [facility] [address] [place] [address] #### B2GPM, B2GPA, B2GPG #### [address] WBC (Bld) [#/Vol] 10.3 10*3/uL Normal 3.6-10.7 [facility] Comment on above: Performed By: #### C A19O, LUPUS #### The performing lab is in the report. #### NSEO #### [facility] #### HEMDF, LDH3, BMP3, MG3, PT, CEA2 #### [place] [address] [place] [address] #### B2GPM, B2GPA, B2GPG #### [address] LDHon 10-23-2021 LDH 136 U/L Normal 120-246 [facility] Comment on above: Performed By: #### C A19O, LUPUS #### The performing lab is in the report. #### NSEO #### [facility] #### HEMDF, LDH3, BMP3, MG3, PT, CEA2 #### [facility] [address] [place] [address] #### B2GPM, B2GPA, B2GPG #### [address] Lactate Dehydrogenaseon 06- LD 136 U/L 120 - 246 U/L [facility] Work Phone: MRI ABDOMEN WO CONTRASTon Patient Name: ANDREW SIFUENTES Magnetic Resonance Imaging ACCESSION EXAM DATE/TIME PROCEDURE ORDERING PROVIDER [id number] 10/23/2021 11:08 EDT MRI Abdomen w/o Contrast WING SRIVASTAVA CPT code 76014 Reason For Exam (MRI Abdomen w/o Contrast) [...] Imaging ACCESSION EXAM DATE/TIME PROCEDURE ORDERING PROVIDER [id number] 10/23/2021 11:08 EDT MRI Abdomen w/o Contrast WING SRIVASTAVA CPT code 10015 Reason For Exam (MRI Abdomen w/o Contrast) [...] VLADIMIR Transcribed Date and Time: 10/23/2021 4:36 [facility] Work Phone: MRI ABDOMEN WO CONTRASTOrder ed By: Unknown Result on 10-23-2021 [facility] MRI Abdomen w/o Contraston 0 10-23-2021 MRI Abdomen w/o Contrast Patient Name: ANDREW SIFUENTES Magnetic Resonance Imaging ACCESSION EXAM DATE/TIME PROCEDURE ORDERING PROVIDER [id number] 10/23/2021 11:08 EDT MRI Abdomen w/o Contrast WING SRIVASTAVA CPT code 56931 Reason For Exam (MRI Abdomen w/o Contrast) [...] 10-23-2021 Magnesium [Mass/Vol] 2.1 mg/dL Normal 1.6-2.3 [facility] Comment on above: Performed By: #### C A19O, LUPUS #### The performing lab is in the report. #### NSEO #### [facility] #### HEMDF, LDH3, BMP3, MG3, PT, CEA2 #### [facility] [address] [place] [address] #### B2GPM, B2GPA, B2GPG #### [facility] [address] [place] [address] Magnesium [Mass/Vol] 2.1 mg/dL 1.6 - 2 .3 mg/dL [facility] Work Phone: No Panel Informationon 10-23 Test Performed by [facility], [address] [place], [place] [address] [place] [address] LAB [facility] Work Phone: Prothrombin Timeon 2 INR [...] [facility] [address] [place] [address] #### B2GPM, B2GPA, B2GPG #### [facility] [address] [place] [address] PT Coag (PPP) [Time] 12.2 s High 9.0-12.0 [facility] Comment on above: Result Comment: . Performed By: #### C A19O, LUPUS #### The performing lab is in the report. #### NSEO #### [facility] #### HEMDF, LDH3, BMP3, MG3, PT, CEA2 #### [facility] [address] [place] [address] #### B2GPM, B2GPA, B2GPG #### [address] [address] Protime-INRon 10-23-2021 INR Coag (Bld) [Relative time] 1.1 {INR} [facility] Work Phone: Comment on above: Recommended [...] Interpretation and review of laboratory results Abnormal [facility] Work Phone: PT Coag (PPP) [Time] 12.2 s High 9.0 - 12.0 s [facility] Work Phone: Comment on above: . Test Performed by [facility], [address] [place], [place] [id number] [place] [address] LAB [facility] Work Phone: Basic Metabolic Panelon - Calcium [Mass/Vol] 8.9 mg/dL Normal 8.4-10.4 [facility] Comment on above: Performed By: #### P T #### [facility] [address] [place] [address] Glucose [Mass/Vol] 110 mg/dL High 70-100 [facility] Comment on above: Performed By: #### P T #### [facility] [address] [place] [address] Urea nitrogen [Mass/Vol] 14 mg/dL Normal 7-17 [facility] Comment on above: Performed By: #### P T #### [facility] [address] [place] [address] Anion gap [Moles/Vol] 7 mmol/L Normal 3-13 [facility] Comment on above: Performed By: #### P T #### [facility] [address] [place] [address] CO2 [Moles/Vol] 26 mmol/L Normal 22-30 [facility] Comment on above: Performed By: #### P T #### [facility] [address] [place] [address] Creatinine [Mass/Vol] 0.71 mg/dL Normal 0.52-1.25 [facility] Comment on above: Performed By: #### P T #### [facility] [address] [place] [address] eGFR OTHER > 90.0 Normal >60 [facility] [...] [facility] [address] [place] [address] GFR/1.73 sq M.predicted among blacks MDRD (S/P/Bld) [Vol rate/Area] mL/min/{1.73_m2} Normal >60 [facility] Comment on above: Performed By: #### P T #### [facility] [address] [place] [address] Potassium [Moles/Vol] 3.8 mmol/L Normal 3.5-5.1 [facility] Comment on above: Performed By: #### P T #### [facility] [address] [place] [address] Chloride [Moles/Vol] 106 mmol/L Normal 98-107 [facility] Comment on above: Performed By: #### P T #### [facility] [address] [place] [address] Sodium [Moles/Vol] 139 mmol/L Normal 135-145 [facility] Comment on above: Performed By: #### P T #### [facility] [address] [place] [address] Anion gap [Moles/Vol] 7 mmol/L 3 - 13 mmol/L [facility] Calcium [Mass/Vol] 8.9 mg/dL 8.4 - 10. 4 mg/dL [facility] Chloride [Moles/Vol] 106 mmol/L 98 - 10 7 mmol/L [facility] CO2 [Moles/Vol] 26 mmol/L 22 - 30 mmol/L [facility] Creatinine [Mass/Vol] 0.71 mg/dL 0.52 - 1.25 mg/dL [facility] EGFR IF NonAfrican Bahamian >90.0 >60 mL/min [facility] Comment on above: KDIGO guidelines pro [...] - 10.7 10*3/uL [facility] Test Performed by [facility], [address], [place] [id number] [place] [address] LAB [facility] Abdomen Pelvis Wo Contras ton 10-22-2021 Patient Name: ANDREW SIFUENTES Computed Tomography ACCESSION EXAM DATE/TIME PROCEDURE ORDERING PROVIDER [id number] 10/22/2021 13:[address] Abdomen/Pelvis (No SRIVASTAVA, WING PO, No IV) CPT code 17625 Reason For Exam (CT Abdomen/Pelvis (No PO, [...] HARLAN Transcribed Date and Time: 10/22/2021 2:37 [facility] Humphrey Melton MD - 10/22/2021 Patient Name: ANDREW SIFUENTES Computed Tomography ACCESSION EXAM DATE/TIME PROCEDURE ORDERING PROVIDER [id number] 10/22/2021 13:[address] Abdomen/Pelvis (No SRIVASTAVA, WING PO, No IV) CPT code 72256 Reason For Exam (CT Abdomen/Pelvis (No PO, [...] [facility] Work Phone: CT Abdomen/Pelvis w/o Contra janeth 10-22-2021 CT Abdomen/Pelvis w/o Contrast Patient [facility]: [id number] Computed Tomography ACCESSION EXAM DATE/TIME PROCEDURE ORDERING PROVIDER [id number] 10/22/2021 13:[address] Abdomen/Pelvis (No SRIVASTAVA, WING PO, No IV) CPT code 37878 Reason For Exam (CT Abdomen/Pelvis (No PO, [...] [facility] [address] [place] [address] Abs Neutrophile Cnt 6.0 10*3/uL Normal 1.8-7.0 [facility] Comment on above: Performed By: #### P T #### [facility] [address] [place] [address] Basophils/100 WBC (Bld) 1.0 % Normal 0.0-2.0 [facility] Comment on above: Performed By: #### P T #### [facility] [address] [place] [address] Eosinophils (Bld) [#/Vol] 0.3 10*3/uL Normal 0.0-0.5 [facility] Comment on above: Performed By: #### P T #### [facility] [address] [place] [address] Eosinophils/100 WBC (Bld) 3.0 % Normal 1.0-6.0 [facility] Comment on above: Performed By: #### P T #### [facility] [address] [place] [address] Erythrocyte distribution width (RBC) [Ratio] 17.1 % High 11.5-14.5 [facility] Comment on above: Performed By: #### P T #### [facility] [address] [place] [address] Granulocytes/100 WBC (Bld) 64.1 % Normal 40.0-80.0 [facility] Comment on above: Performed By: #### P T #### [facility] [address] [place] [address] Hematocrit (Bld) [Volume fraction] 33.4 % Low 40.0-52.0 [facility] Comment on above: Performed By: #### P T #### [facility] [address] [place] [address] Hemoglobin (Bld) [Mass/Vol] 10.9 g/dL Low 13.0-18.0 [facility] Comment on above: Performed By: #### P T #### [facility] [address] [place] [address] Lymphocytes (Bld) [#/Vol] 2.5 10*3/uL Normal 1.0-4.3 [facility] Comment on above: Performed By: #### P T #### [facility] [address] [place] [address] Lymphocytes/100 WBC (Bld) 26.3 % Normal 20.0-40.0 [facility] Comment on above: Performed By: #### P T #### [facility] [address] [place] [address] MCH (RBC) [Entitic mass] 28.2 pg Normal 26.0-34.0 [facility] Comment on above: Performed By: #### P T #### [facility] [address] [place] [address] MCHC 32.7 % Normal 32.0-36.0 [facility] Comment on above: Performed By: #### P T #### [facility] [address] [place] [address] MCV (RBC) [Entitic vol] 86.3 fL Normal 80.0-98.0 [facility] Comment on above: Performed By: #### P T #### [facility] [address] [place] [address] Monocytes (Bld) [#/Vol] 0.5 10*3/uL Normal 0.0-0.8 [facility] Comment on above: Performed By: #### P T #### [facility] [address] [place] [address] Monocytes/100 WBC (Bld) 5.6 % Normal 2.0-10.0 [facility] Comment on above: Performed By: #### P T #### [facility] [address] [place] [address] Platelet mean volume (Bld) [Entitic vol] 7.6 fL Normal 7.4-12.4 [facility] Comment on above: Result Comment: MPV is a calculated measurement using platelet volume ratio. Performed By: #### P T #### [facility] [address] [place] [address] Platelets (Bld) [#/Vol] 369 10*3/uL Normal 140-440 [facility] Comment on above: Performed By: #### P T #### [facility] [address] [place] [address] RBC (Bld) [#/Vol] 3.87 10*6/uL Low 4.40-5.90 [facility] Comment on above: Performed By: #### P T #### [facility] [address] [place] [address] WBC (Bld) [#/Vol] 9.4 10*3/uL Normal 3.6-10.7 [facility] Comment on above: Performed By: #### P T #### [facility] [address] [place] [address] Magnesiumon 10-22-2021 Magnesium [Mass/Vol] 2.0 mg/dL Normal 1.6-2.3 [facility] Comment on above: Performed By: #### P T #### [facility] [address] [place] [address] Magnesium [Mass/Vol] 2.0 mg/dL 1.6 - 2 .3 mg/dL [facility] No Panel Informationon 10-22 Radiology Study observation (narrative) [facility] Work Phone: Test Performed by [facility], [address] [place], [place] [id number] [place] [address] LAB [facility] Prothrombin Timeon 2 INR 1.1 Normal [...] [facility] [address] [place] [address] #### B2GPM, B2GPA, B2GPG #### [facility] [address] [place] [address] PT Coag (PPP) [Time] 11.8 s Normal 9.0-12.0 [facility] Comment on above: Result Comment: . Performed By: #### C A19O, LUPUS #### The performing lab is in the report. #### NSEO #### [facility] #### HEMDF, LDH3, BMP3, MG3, PT, CEA2 #### [employer] [facility] [address] [place] [address] #### B2GPM, B2GPA, B2GPG #### [employer] [address] [place] [phone] Protime-INRon 10-22-2021 INR Coag (Bld) [Relative time] 1.1 {INR} [employer] Work Phone: Comment on above: Recommended Anticoag [...] [Time] 11.8 s 9.0 - 12.0 s [employer] Work Phone: Comment on above: . Test Performed by [facility] Sevar Consult [facility], [address] [place], [place] [id number] [place] [address] LAB [employer] Work Phone: VL Ankle Art Brachial Indice s Extremity Bilateralon 10-22-2021 [facility] Ankle Brachial Index Report Patient DO GurpreetB: 1950 Study 10/21/2021 Name: Andrew Gonzalez (71yrs) Date: Age: 71 Account: [id number] Gender: M Loc: 444W BP: Ordering Physician: Shruthi Malik Radiology Orderly: Rody Cross RDMS, RVT Interpreting Physician: Carina Call Location: [facility] Indications: Foot wounds. Originally ordered as a full PVR. Ordering SECURITY ANALYST had to modify the order to ABIs [...] supine position. Images were obtained using a [employer] vascular ultrasound machine. Arterial pressure indices: + [...] electronically signed by Carina Call 10/22/2021 13:21 [facility] Carina Call MD - 10/22/2021 [facility] Ankle Brachial Index Report Patient DO GurpreetB: 1950 Study 10/21/2021 Name: Andrew Gonzalez (71yrs) Date: Age: 71 Account: [id number] Gender: M Loc: 444W BP: Ordering Physician: Shruthi Malik Radiology Orderly: Rody Cross RDMS, RVT Interpreting Physician: Carina Call Location: [facility] Indications: Foot wounds. Originally ordered as a full PVR. Ordering SECURITY ANALYST had to modify the order to ABIs [...] supine position. Images were obtained using a [employer] vascular ultrasound machine. Arterial pressure indices: + [...] electronically signed by Carina Call 10/22/2021 13:21 [employer] Work Phone: [employer] Work Phone: Basic Metabolic Panelon 10-05 Calcium [Mass/Vol] 9.1 mg/dL Normal 8.4-10.4 [facility] Comment on above: Performed By: #### C OVAG #### [facility] [address] [facility] [place] [address] Anion gap [Moles/Vol] 6 mmol/L Normal 3-13 [facility] Comment on above: Performed By: #### C OVAG #### [facility] [address] [place] [address] CO2 [Moles/Vol] 29 mmol/L Normal 22-30 [facility] Comment on above: Performed By: #### C OVAG #### [facility] [address] [place] [address] Creatinine [Mass/Vol] 0.90 mg/dL Normal 0.52-1.25 [facility] Comment on above: Performed By: #### C OVAG #### [facility] [address] [place] [address] GFR/1.73 sq M.predicted among blacks MDRD (S/P/Bld) [Vol rate/Area] mL/min/{1.73_m2} Normal >60 [facility] Comment on above: Performed By: #### C OVAG #### [facility] [address] [place] [address] GFR/1.73 sq M.predicted among non-blacks MDRD (S/P/Bld) [...] Hospital [address] [place] [address] Glucose [Mass/Vol] 106 mg/dL High 70-100 [facility] Comment on above: Performed By: #### C OVAG #### [facility] [address] [place] [address] Urea nitrogen [Mass/Vol] 18 mg/dL High 7-17 [facility] Comment on above: Performed By: #### C OVAG #### [facility] [address] [place] [address] Chloride [Moles/Vol] 105 mmol/L Normal 98-107 [facility] Comment on above: Performed By: #### C OVAG #### [facility] [address] [place] [address] Potassium [Moles/Vol] 4.3 mmol/L Normal 3.5-5.1 [facility] Comment on above: Performed By: #### C OVAG #### [facility] [address] [place] [address] Sodium [Moles/Vol] 139 mmol/L Normal 135-145 [facility] Comment on above: Performed By: #### C OVAG #### [facility] [address] [place] [address] Anion gap [Moles/Vol] 6 mmol/L 3 - 13 mmol/L [facility] Calcium [Mass/Vol] 9.1 mg/dL 8.4 - 10. 4 mg/dL [facility] Chloride [Moles/Vol] 105 mmol/L 98 - 10 7 mmol/L [facility] CO2 [Moles/Vol] 29 mmol/L 22 - 30 mmol/L [facility] Creatinine [Mass/Vol] 0.9 mg/dL 0.52 - 1.25 mg/dL [facility] EGFR IF NonAfrican Bahamian 86.6 mL/min >60 [facility] Comment on above: [...] - 17 mg/dL [facility] Test Performed by [facility], [address] [place], [place] [address] [facility] C-Reactive Proteinon 022 CRP [Mass/Vol] 33.5 mg/L High 0.0-9.9 [facility] Comment on above: Result Comment: . Performed By: #### P T #### [facility] [address] [place] [address] CRP [Mass/Vol] 33.5 mg/L High 0.0 - 9.9 mg/L [facility] Comment on above: . Interpretation and review of laboratory results Abnormal [facility] Test Performed by [facility], [address] [place] [id number] [facility] [place] CR Calcaneus 2+ Views Lefton 10-21-2021 CR Calcaneus 2+ Views Left Patient Name: ANDREW SIFUENTES Diagnostic Radiology ACCESSION EXAM DATE/TIME PROCEDURE ORDERING PROVIDER [id number] 10/21/2021 15:30 EDT CR Calcaneus 2+ Views [id number] -SHRUTHI MALIK Left CPT code 90603 Reason For Exam (CR Calcaneus 2+ Views [...] Radiology ACCESSION EXAM DATE/TIME PROCEDURE ORDERING PROVIDER [id number] 10/21/2021 08:16 EDT CR Chest 1 View Frontal [id number] MAY BOGGS CPT code 72087 Reason For Exam (CR Chest 1 View [...] [facility] [address] [place] [address] D-Dimer, Quantitativeon 06 D-Dimer, Quant 1.51 mg/L High <0.19 - 0.50 [facility] Comment on above: [employer] D-Dimer va lues of <0.50 mg/L FEU can be used in combination with a pre-test probability model (e.g. Well's) to exclude pulmonary embolism (PE) disease, as well as an aid in the diagnosis of deep vein thrombosis (DVT). Interpretation and review of laboratory results Abnormal [facility] Test Performed by [facility], [address], [place], [place] [address] [facility] ED Provider Noteon ED Provider Note B [facility]Y DEPARTMENT ENCOUNTER Pt Name: Andrew [...] (HCC) ? Kidney stone ? Neuropathy ? BLOW MOLD OPERATOR (ventriculoperitoneal) shunt status SURGICAL HISTORY Past [...] and Family: Not on file ? Attends [employer] Services: Not on file ? Active Member [...] [facility] [address] [place] [address] Hematocrit (Bld) [Volume fraction] 33.6 % Low 40.0-52.0 [facility] Comment on above: Performed By: #### C OVAG #### [facility] [address] [place] [address] Hemoglobin (Bld) [Mass/Vol] 10.9 g/dL Low 13.0-18.0 [facility] Comment on above: Performed By: #### C OVAG #### [facility] [address] [place] [address] MCH (RBC) [Entitic mass] 27.8 pg Normal 26.0-34.0 [facility] Comment on above: Performed By: #### C OVAG #### [facility] [address] [place] [address] MCHC 32.5 % Normal 32.0-36.0 [facility] Comment on above: Performed By: #### C OVAG #### [facility] [address] [place] [address] MCV (RBC) [Entitic vol] 85.6 fL Normal 80.0-98.0 [facility] Comment on above: Performed By: #### C OVAG #### [facility] [address] [place] [address] Platelet mean volume (Bld) [Entitic vol] 7.7 fL Normal 7.4-12.4 [facility] Comment on above: Result Comment: MPV is a calculated measurement using platelet volume ratio. Performed By: #### C OVAG #### [facility] [address] [place] [address] Platelets (Bld) [#/Vol] 404 10*3/uL Normal 140-440 [facility] Comment on above: Performed By: #### C OVAG #### [facility] [address] [place] [address] RBC (Bld) [#/Vol] 3.93 10*6/uL Low 4.40-5.90 [facility] Comment on above: Performed By: #### C OVAG #### [facility] [address] [place] [address] WBC (Bld) [#/Vol] 11.6 10*3/uL High 3.6-10.7 [facility] Comment on above: Performed By: #### C OVAG #### [facility] [address] [place] [address] Hemogram (CBC)on 10-21-2021 Hematocrit (Bld) [Volume fraction] 33.6 % Low 40.0 - 52.0 % [facility] Hemoglobin (Bld) [Mass/Vol] 10.9 g/dL Low 13.0 [...] 11.6 10*3/uL High 3.6 - 10.7 10*3/uL [facility] Test Performed by [facility], [address] [facility] [address] LAB [facility] NM LUNG VENT/PERFUSION (VQ)o n 10-21-2021 Patient Name: ANDREW SIFUENTES Nuclear Medicine ACCESSION EXAM DATE/TIME PROCEDURE ORDERING PROVIDER [id number] 10/21/2021 07:55 EDT NM Pulmonary Perfusion [id number] MAY BOGGS w/ Vent Aerosol CPT code 17046 A9567 Reason For Exam (NM Pulmonary Perfusion [...] Medicine ACCESSION EXAM DATE/TIME PROCEDURE ORDERING PROVIDER [id number] 10/21/2021 07:55 EDT NM Pulmonary Perfusion [id number] -MAY CASH w/ Vent Aerosol CPT code 67408 A9567 Reason For Exam (NM Pulmonary Perfusion [...] Medicine ACCESSION EXAM DATE/TIME PROCEDURE ORDERING PROVIDER [id number] 10/21/2021 07:55 EDT NM Pulmonary Perfusion [id number] MAY BOGGS w/ Vent Aerosol CPT code 68277 A9567 Reason For Exam (NM Pulmonary Perfusion [...] Transcribed Date and Time: 10/21/2021 8:49 Normal [facility] No Panel Informationon 10-21 Radiology Study observation (narrative) [facility] Work Phone: Prothrombin Timeon 2 INR [...] Infarction Performed By: #### C OVAG #### [facility] [address] [place] [address] PT Coag (PPP) [Time] 11.5 s Normal 9.0-12.0 [facility] Comment on above: Result Comment: . Performed By: #### C OVAG #### [facility] [address] [place] [address] Protime-INRon 10-21-2021 INR Coag (Bld) [Relative time] 1.1 {INR} [facility] Comment on above: Recommended Anticoag ulant [...] [Time] 11.5 s 9.0 - 12.0 s [facility] Comment on above: . Test Performed by [facility], [address] LAB [facility] Retic Count(%)on 10-21-2021 Retic Count(%) 1.6 Normal [facility] Comment on above: Result Comment: [place] orn < 5% Adults 0.5 - 1.5% Performed By: #### P T #### [facility] [address] [place] [address] Reticulocyteson 10-21-[address] Pct 1.6 [facility] Comment on above: [place] < 5% Adults 0.5 - 1.5% Test Performed by [facility], [address] LAB [facility] Sed Rateon 10-21-2021 Sed Rate 63 mm/h High 0-10 [facility] Comment on above: Performed By: #### P T #### [facility] [address] [place] [address] Sedimentation Rateon 022 Interpretation and review of laboratory results Abnormal [facility] Sed Rate 63 mm/h High 0 - 10 mm/h [facility] Test Performed by [facility], [address] LAB [facility] VL CARMELLA Upr/L Extremity Art 1 -2 Levelson 10-21-2021 VL CARMELLA Upr/L Extremity Art 1-2 Levels Patient Name: ANDREW SIFUENTES Ultrasound ACCESSION EXAM DATE/TIME PROCEDURE ORDERING PROVIDER [id number] 10/21/2021 16:12 EDT VL Upr/L Extremity Art [id number] -SHRUTHI MALIK 1-2 Levels CPT code 17427 Reason For Exam (VL Upr/L Extremity Art 1-2 Levels) both lower legs CARMELLA for both feet wounds. Report [facility] Ankle Brachial Index Report Patient DO GurpreetB: 1950 Study 10/21/2021 Name: Andrew Gonzalez (71yrs) Date: Age: 71 Account: [id number] Gender: M Loc: 444W BP: Ordering Physician: Shruthi Malik Radiology Orderly: Rody Cross RDMS, RVT Interpreting Physician: Carina Call Location: [facility] Indications: Foot wounds. Originally ordered as a full PVR. Ordering SECURITY ANALYST had to modify the order to ABIs [...] supine position. Images were obtained using a itzat E10s vascular ultrasound machine. Arterial pressure indices: + [...] CARINA HENNESSY Cardiovascular ACCESSION EXAM DATE/TIME PROCEDURE [id number] 10/21/2021 16:12 EDT VL Upr/L Extremity Art 1-2 Levels CPT code 06149 Reason For Exam (VL Upr/L Extremity Art 1-2 Levels) both lower legs CARMELLA for both feet wounds. Report [facility] [place] Ankle Brachial Index Report Patient DO GurpreetB: 1950 Study 10/21/2021 Name: Andrew Gonzalez (71yrs) Date: Age: 71 Account: [id number] Cardiovascular Report Gender: M Loc: 444W BP: Ordering Physician: Shruthi Malik Radiology Orderly: Rody Cross RDMS, RVT Interpreting Physician: Carina Call Location: [facility] Indications: Foot wounds. Originally ordered as a full PVR. Ordering SECURITY ANALYST had to modify the order to ABIs [...] in th (more content not included)... [facility] VL LOWER EXTREMITY BILATERAL VENOUS DUPLEXon 10-21-2021 [facility] Lower Extremity Venous Duplex Report Patient DO GurpreetB: 1950 Study 10/21/2021 Name: Andrew Gonzalez (71yrs) Date: Age: 71 Account: [id number] Gender: M Loc: 444 BP: Ordering Physician: May Cash Radiology Orderly: Rody Cross RDMS, RVT Interpreting Physician: Carina Call Location: [facility] Indications: Bilateral lower leg edema. [...] supine position. Images were obtained using a [employer] vascular ultrasound machine. Venous flow and imaging: [...] (more content not included)... [facility] Carina Call MD - 10/21/2021 [facility] Lower Extremity Venous Duplex Report Patient DO GurpreetB: 1950 Study 10/21/2021 Name: Andrew Gonzalez (71yrs) Date: Age: 71 Account: [id number] Gender: M Loc: 444 BP: Ordering Physician: May Cash Radiology Orderly: Rody Cross RDMS RVT Interpreting Physician: Carina Call Location: [facility] Indications: Bilateral lower leg edema. [...] supine position. Images were obtained using a [employer] vascular ultrasound machine. Venous flow and imaging: [...] + + +----- (more content not included)... [employer] Work Phone: VL LOWER EXTREMITY BILATERAL VENOUS DUPLEXOrdered By: Carina Call on 10-21-2021 [employer] Work Phone: VL Venous Duplex US Lower Ex t Bilateralon 10-21-2021 VL Venous Duplex US Lower Ext Bilateral Patient Name: ANDREW SIFUENTES Ultrasound ACCESSION EXAM DATE/TIME PROCEDURE ORDERING PROVIDER [id number] 10/21/2021 09:53 EDT VL Venous Duplex US [id number] -MAY CASH Lower Ext Bilateral CPT code 44726 Reason For Exam (VL Venous Duplex US Lower Ext Bilateral) bilateral sqwelling redness Report [facility] Lower Extremity Venous Duplex Report Patient RADHA Sifuentes: 1950 Study 10/21/2021 Name: Andrew Gonzalez (71yrs) Date: Age: 71 Account: [id number] Gender: M Loc: 444 BP: Ordering Physician: May Cash Radiology Orderly: Rody Cross RDMS, T Interpreting Physician: Carina Call Location: [facility] Indications: Bilateral lower leg edema. [...] supine position. Images were obtained using a [employer] vascular ultrasound machine. Venous flow and imaging: [...] + + (more content not included)... Normal [employer] XR CALCANEUS LEFT (MIN 2 VIE WS)on 10-21-2021 Patient Name: ANDREW SIFUENTES Diagnostic Radiology ACCESSION EXAM DATE/TIME PROCEDURE ORDERING PROVIDER [id number] 10/21/2021 15:30 EDT CR Calcaneus 2+ Views [id number] -SHRUTHI MALIK CPT code 31171 Reason For Exam (CR Calcaneus 2+ Views [...] Date and Time: 10/21/2021 4:33 [facility] Crala Wong MD - 10/21/2021 Patient Name: ANDREW SIFUENTES Diagnostic Radiology ACCESSION EXAM DATE/TIME PROCEDURE ORDERING PROVIDER [id number] 10/21/2021 15:30 EDT CR Calcaneus 2+ Views [id number] -SHRUTHI MALIK CPT code 09369 Reason For Exam (CR Calcaneus 2+ Views [...] Radiology ACCESSION EXAM DATE/TIME PROCEDURE ORDERING PROVIDER [id number] 10/21/2021 08:16 EDT CR Chest 1 View Frontal [id number] FOSTER CPT code 82286 Reason For Exam (CR Chest 1 View [...] OSAMA Transcribed Date and Time: 10/21/2021 8:33 [facility] Venus Loyd MD - 10/21/2021 Patient Name: ANDREW SIFUENTES Diagnostic Radiology ACCESSION EXAM DATE/TIME PROCEDURE ORDERING PROVIDER [id number] 10/21/2021 08:16 EDT CR Chest 1 View Frontal [id number] BOGGS MAY CPT code 30047 Reason For Exam (CR Chest 1 View [...] 2021 Chloride [Moles/Vol] 108 mmol/L 98-107 [facility] Work Phone: Glucose [Mass/Vol] 93 mg/dL 74-106 [facility] Work Phone: Potassium [Moles/Vol] 3.9 mmol/L 3.5-5.1 [facility]ur [facility] Work Phone: Sodium [Moles/Vol] 140 mmol/L 136-145 [facility] Work Phone: WBC (Bld) [#/Vol] 8.7 10*3/uL 4.4-11.0 [facility] Work Phone: Blood erythrocytes count (nu mber/volume)on 10-20-2021 RBC (Bld) [#/Vol] 3.63 10*6/uL 4.6-6.2 [facility] Work Phone: Blood hemoglobin measurement (mass/volume)on 10-20-2021 Hemoglobin (Bld) [Mass/Vol] 10.1 g/dL 13.0-16.5 [facility] Work Phone: Blood platelet mean volumeon 10-20-2021 Platelet mean volume (Bld) [Entitic vol] 9.8 fL 6.2-12.0 [facility] Work Phone: Determination of erythrocyte mean corpuscular volume (MCV)on 10-20-2021 MCV (RBC) [Entitic vol] 90.1 fL 80-94 [facility] Work Phone: Hematocrit Auto (Bld) [Volum e fraction]on 10-20-2021 Hematocrit (Bld) [Volume fraction] 32.7 % 40-54 [facility] Work Phone: Laboratory - Chemistry and C hemistry - challengeon 10-20-2021 CO2 [Moles/Vol] 25.0 mmol/L 21.0-32.0 [facility] Work Phone: Urea nitrogen/Creatinine [Mass ratio] 17.4 mg/mg 10-20 [facility] Work Phone: Laboratory - Hematology and Cell countson 10-20-2021 Erythrocyte distribution width (RBC) [Entitic vol] 52.1 fL 35.1-43.9 [facility] Work Phone: Erythrocyte distribution width (RBC) [Ratio] 15.6 % 11.6-14.6 [facility] Work Phone: MCH (RBC) [Entitic mass] 27.8 pg 27.0-32.0 [facility] Work Phone: MCHC Auto (RBC) [Mass/Vol]on 10-20-2021 MCHC (RBC) [Mass/Vol] 30.9 g/dL 32-36 [facility] Work Phone: No Panel Informationon 10-20 Estimated GFR (MDRD) Amer 133 mL/min >60 [facility] Work Phone: Comment on above: GFR Calc Estimated GFR (MDRD) Non-Af Amer 110 mL/min >60 [facility] Work Phone: Comment on above: Non- GFR Calc Platelets bldon 10-20-2021 Platelets (Bld) [#/Vol] 404 10*3/uL 150-450 [facility] Work Phone: Serum or plasma calcium oral urement (mass/volume)on 10-20-2021 Calcium [Mass/Vol] 9.1 mg/dL 8.5-10.1 [facility] Work Phone: Serum or plasma creatinine m easurement (mass/volume)on 10-20-2021 Creatinine [Mass/Vol] 0.75 mg/dL 0.70-1.30 [facility] Work Phone: Comment on above: The validity of the calculated GFR & GFRAA in patients over 70 years has not been determined. Clinical correlation is essential. Serum or plasma urea nitroge n measurement (mass/volume)on 10-20-2021 Urea nitrogen [Mass/Vol] 13 mg/dL 7-18 [facility] Work Phone: Thin prep Papanicolaou smear with manual screeningon 10-20-2021 Thin prep Papanicolaou smear with manual screening 7 5-15 [facility] Work Phone: CNPNon 10-17-2021 CNPN Normal [facility] Absolute lymphocyte counton 09-19-2021 Lymphocytes Auto (Unsp spec) [#/Vol] 1.74 10*3/uL 0.83-4.51 [facility] Work Phone: Basophil percentageon 2021 Basophils/100 WBC (Bld) 0.6 % 0-1 [facility] Work Phone: [phone] Bilirubin [Mass/Vol] 0.30 mg/dL 0.20-1.00 [facility] Work Phone: Comment on above: For patients on eltr ombopag therapy, use of Dimension [place] TBIL is not recommended. Chloride [Moles/Vol] 105 mmol/L 98-107 [facility] Work Phone: Eosinophils/100 WBC (Bld) 3.5 % 0-5 [facility] Work Phone: [phone] Glucose [Mass/Vol] 91 mg/dL 74-106 [facility] Work Phone: Neutrophils (Bld) [#/Vol] 4.2 10*3/uL 2.0-7.7 [facility] Work Phone: Neutrophils/100 WBC (Bld) 62.6 % 47-70 [facility] Work Phone: Potassium [Moles/Vol] 3.8 mmol/L 3.5-5.1 [facility] Work Phone: Protein [Mass/Vol] 6.3 g/dL 6.4-8.2 [facility] Work Phone: Sodium [Moles/Vol] 139 mmol/L 136-145 [facility] Work Phone: WBC (Bld) [#/Vol] 6.6 10*3/uL 4.4-11.0 [facility] Work Phone: Blood erythrocytes count (nu mber/volume)on 09-19-2021 RBC (Bld) [#/Vol] 3.47 10*6/uL 4.6-6.2 [facility] Work Phone: Blood hemoglobin measurement (mass/volume)on 09-19-2021 Hemoglobin (Bld) [Mass/Vol] 10.2 g/dL 13.0-16.5 [facility] Work Phone: Blood lymphocytes/100 leukoc yteson 09-19-2021 Lymphocytes/100 WBC (Bld) 26.2 % 19-41 [facility] Work Phone: Blood monocytes/100 leukocyt eson 09-19-2021 Monocytes/100 WBC (Bld) 6.5 % 0-10 [facility] Work Phone: Blood platelet mean volumeon 09-19-2021 Platelet mean volume (Bld) [Entitic vol] 9.6 fL 6.2-12.0 [facility] Work Phone: Determination of erythrocyte mean corpuscular volume (MCV)on 09-19-2021 MCV (RBC) [Entitic vol] 94.8 fL 80-94 [facility] Work Phone: Hematocrit Auto (Bld) [Volum e fraction]on 09-19-2021 Hematocrit (Bld) [Volume fraction] 32.9 % 40-54 [facility] Work Phone: Laboratory - Chemistry and C hemistry - challengeon 09-19-2021 ALP [Catalytic activity/Vol] 109 U/L 45-117 [facility] Work Phone: [phone] ALT [Catalytic activity/Vol] 23 U/L 16-61 [facility] Work Phone: CO2 [Moles/Vol] 26.0 mmol/L 21.0-32.0 [facility] Work Phone: Globulin (S) [Mass/Vol] 3.5 g/dL 2.2-4.2 [facility] Work Phone: Urea nitrogen/Creatinine [Mass ratio] 15.3 mg/mg 10-20 [facility] Work Phone: Laboratory - Hematology and Cell countson 09-19-2021 Erythrocyte distribution width (RBC) [Entitic vol] 59.4 fL 35.1-43.9 [facility] Work Phone: Erythrocyte distribution width (RBC) [Ratio] 17.1 % 11.6-14.6 [facility] Work Phone: [phone] Immature granulocytes/100 WBC (Bld) 0.600 % 0.0-0.9 [facility] Work Phone: Comment on above: IG% - Immature Granu locytes (promyelocytes, myelocytes and metamyelocytes) > 1% indicates that a LEFT SHIFT is Present. MCH (RBC) [Entitic mass] 29.4 pg 27.0-32.0 [facility] Work Phone: Nucleated RBC/100 WBC (Bld) [Ratio] 0 % 0-5 [facility] Work Phone: MCHC Auto (RBC) [Mass/Vol]on 09-19-2021 MCHC (RBC) [Mass/Vol] 31.0 g/dL 32-36 [facility] Work Phone: No Panel Informationon 09-19 Estimated GFR (MDRD) Amer 175 mL/min >60 [facility] Work Phone: Comment on above: GFR Calc Estimated GFR (MDRD) Non-Af Amer 145 mL/min >60 [facility] Work Phone: Comment on above: Non- GFR Calc Platelets bldon 09-19-2021 Platelets (Bld) [#/Vol] 342 10*3/uL 150-450 [facility] Work Phone: Serum or plasma albumin oral urement (mass/volume)on 09-19-2021 Albumin [Mass/Vol] 2.8 g/dL 3.2-5.0 [facility] Work Phone: Serum or plasma albumin/glob ulin mass ratioon 09-19-2021 Albumin/Globulin [Mass ratio] 0.8 {ratio} 0.9-2.4 [facility] Work Phone: Serum or plasma calcium oral urement (mass/volume)on 09-19-2021 Calcium [Mass/Vol] 9.0 mg/dL 8.5-10.1 [facility] Work Phone: Serum or plasma creatinine m easurement (mass/volume)on 09-19-2021 Creatinine [Mass/Vol] 0.59 mg/dL 0.70-1.30 [facility] Work Phone: Comment on above: The validity of the calculated GFR & GFRAA in patients over 70 years has not been determined. Clinical correlation is essential. Serum or plasma urea nitroge n measurement (mass/volume)on 09-19-2021 Urea nitrogen [Mass/Vol] 9 mg/dL 7-18 [facility] Work Phone: Thin prep Papanicolaou smear with manual screeningon 09-19-2021 Thin prep Papanicolaou smear with manual screening 12 U/L 15-37 [facility] Work Phone: Thin prep Papanicolaou smear with manual screening 8 5-15 [facility] Work Phone: OPERATIVE NOon 08-22-2021 OPERATIVE NO Normal [facility] Basic metabolic 2000 panelon 08-19-2021 Anion gap [Moles/Vol] 10 mmol/L Normal 9-18 [facility] Comment on above: Order Comment: Speci men Type: BLOOD SPECIMENOrdering Facility: [facility] Address: [address] [address] Performed By: #### 2 4321-2 ####[facility] LABORATORYCLIA [id number] [place] [address] [place] Calcium [Mass/Vol] 8.6 mg/dL Normal 8.5-10.2 [facility] Comment on above: Order Comment: Speci men Type: BLOOD SPECIMENOrdering Facility: [facility] Address: [address] [address] Performed By: #### 2 4321-2 ####[facility] LABORATORYCLIA [id number] [address] [place] Chloride [Moles/Vol] 99 mmol/L Normal 97-105 [facility] Comment on above: Order Comment: Speci men Type: BLOOD SPECIMENOrdering Facility: [facility] Address: [address] [place] [address] Performed By: #### 2 4321-2 ####[facility] LABORATORYCLIA [id number] [address] [place] CO2 [Moles/Vol] 29 mmol/L Normal 22-30 [facility] Comment on above: Order Comment: Speci men Type: BLOOD SPECIMENOrdering Facility: [facility] Address: [address] [place] [address] Performed By: #### 2 4321-2 ####[facility] LABORATORYCLIA [id number] [address] [place] Creatinine [Mass/Vol] 0.58 mg/dL Low 0.73-1.22 [facility] Comment on above: Order Comment: Speci men Type: BLOOD SPECIMENOrdering Facility: [facility] Address: [address] [place] [address] Performed By: #### 2 4321-2 ####[facility] LABORATORYCLIA [id number] [address] ESTIMATED GLOMERULAR FILTRATION RATE 106 mL/min/1.73m??? Normal >=60 [facility] Comment on above: Order Comment: Speci men Type: BLOOD SPECIMENOrdering Facility: [facility] Address: [address] [place] [address] Result Comment: Luzmaria mated Glomerular Filtration Rate [...] actual GFR. Performed By: #### 2 4321-2 ####[facility] LABORATORYCLIA [id number] [place] [address] [place] Glucose [Mass/Vol] 101 mg/dL High 74-99 [facility] Comment on above: Order Comment: Shira feldman Type: BLOOD SPECIMENOrdering Facility: [facility] Address: [address] [place], [place] [address] Result Comment: The [place] [employer] (ADA) provides guidance for cutoff [...] Standards of Medical Care in Diabetes 2016, [place] [employer]. Diabetes Care. 2016.39(Suppl 1). Performed By: #### 2 4321-2 ####[facility] LABORATORYCLIA [id number] [place] [address] [place] Potassium [Moles/Vol] 3.5 mmol/L Low 3.7-5.1 [facility] Comment on above: Order Comment: Shira feldman Type: BLOOD SPECIMENOrdering Facility: [facility] Address: [address] [place] [address] Performed By: #### 2 4321-2 ####[facility] LABORATORYCLIA [id number] [place] [address] [place] Sodium [Moles/Vol] 138 mmol/L Normal 136-144 [facility] Comment on above: Order Comment: Shira feldman Type: BLOOD SPECIMENOrdering Facility: [facility] Address: [address] [place] [address] Performed By: #### 2 4321-2 ####[facility] LABORATORYCLIA [id number] [address] [place] Urea nitrogen [Mass/Vol] 11 mg/dL Normal 9-24 [facility] Comment on above: Order Comment: Speci men Type: BLOOD SPECIMENOrdering Facility: [facility] Address: [address] [place] [address] Performed By: #### 2 4321-2 ####[facility] LABORATORYCLIA [id number] [address] [place] CASE MANAGEMon 08-19-2021 CASE MANAGEM Normal [facility] CBC W Auto Differential pane l (Bld)on 08-19-2021 Basophils (Bld) [#/Vol] 0.03 10*3/uL Normal <0.11 [facility] Comment on above: Order Comment: Speci men Type: BLOOD SPECIMENOrdering Facility: [facility] Address: [address] [place] [address] Performed By: #### 5 7021-8 ####[facility] LABORATORYCLIA [id number] [address] [place] Basophils/100 WBC (Bld) 0.4 % Normal [facility] Comment on above: Order Comment: Speci men Type: BLOOD SPECIMENOrdering Facility: [facility] Address: [address] [place] [address] Performed By: #### 5 7021-8 ####[facility] LABORATORYCLIA [id number] [address] [place] Differential cell count method Nom (Bld) Auto Normal [facility] Comment on above: Order Comment: Speci men Type: BLOOD SPECIMENOrdering Facility: [facility] Address: [address] [place] [address] Performed By: #### 5 7021-8 ####[facility] LABORATORYCLIA [id number] [place] [address] [place] Eosinophils (Bld) [#/Vol] 0.24 10*3/uL Normal <0.46 [facility] Comment on above: Order Comment: Speci men Type: BLOOD SPECIMENOrdering Facility: [facility] Address: [address] [place] [address] Performed By: #### 5 7021-8 ####[facility] LABORATORYCLIA [id number] [address] [place] Eosinophils/100 WBC (Bld) 3.1 % Normal [facility] Comment on above: Order Comment: Speci men Type: BLOOD SPECIMENOrdering Facility: [facility] Address: [address] [place] [address] Performed By: #### 5 7021-8 ####[facility] LABORATORYCLIA [id number] [address] STATES [facility] Erythrocyte distribution width (RBC) [Ratio] 17.5 % High 11.5-15.0 [facility] Comment on above: Order Comment: Speci men Type: BLOOD SPECIMENOrdering Facility: [facility] Address: [address] [place] [address] Performed By: #### 5 7021-8 ####[facility] LABORATORYCLIA [id number] [address] [place] Hematocrit (Bld) [Volume fraction] 30.2 % Low 39.0-51.0 [facility] Comment on above: Order Comment: Speci men Type: BLOOD SPECIMENOrdering Facility: [facility] Address: [address] [place] [address] Performed By: #### 5 7021-8 ####[facility] LABORATORYCLIA [id number] [address] [place] Hemoglobin (Bld) [Mass/Vol] 9.6 g/dL Low 13.0-17.0 [facility] Comment on above: Order Comment: Speci men Type: BLOOD SPECIMENOrdering Facility: [facility] Address: [address] [place] [address] Performed By: #### 5 7021-8 ####[facility]ORATORYCLIA [id number] [address] IMMATURE GRAN % 0.4 % Normal [facility] Comment on above: Order Comment: Speci men Type: BLOOD SPECIMENOrdering Facility: [facility] Address: [address] [place] [address] Performed By: #### 5 7021-8 ####[facility]ORATORYCLIA [id number] [address] IMMATURE GRAN ABS 0.03 k/uL Normal <0.10 [facility] Comment on above: Order Comment: Speci men Type: BLOOD SPECIMENOrdering Facility: [facility] Address: [address] [place] [address] Performed By: #### 5 7021-8 ####[facility] LABORATORYCLIA [id number] [address] Lymphocytes (Bld) [#/Vol] 1.71 10*3/uL Normal 1.00-4.00 [facility] Comment on above: Order Comment: Speci men Type: BLOOD SPECIMENOrdering Facility: [facility] Address: [address] [place] [address] Performed By: #### 5 7021-8 ####[facility]ORATORYCLIA [id number] [address] Lymphocytes/100 WBC (Bld) 22.2 % Normal [facility] Comment on above: Order Comment: Speci men Type: BLOOD SPECIMENOrdering Facility: [facility] Address: [address] [place] [address] Performed By: #### 5 7021-8 ####[facility]ORATORYCLIA [id number] [address] MCH (RBC) [Entitic mass] 29.4 pg Normal 26.0-34.0 [facility] Comment on above: Order Comment: Speci men Type: BLOOD SPECIMENOrdering Facility: [facility] Address: [address] [place] [address] Performed By: #### 5 7021-8 ####[facility] LABORATORYCLIA [id number] [address] STATES OF [facility] MCHC (RBC) [Mass/Vol] 31.8 g/dL Normal 30.5-36.0 [facility] Comment on above: Order Comment: Speci men Type: BLOOD SPECIMENOrdering Facility: [facility] Address: [address] [place] [address] Performed By: #### 5 7021-8 ####[facility] LABORATORYCLIA [id number] [address] STATES OF [facility] MCV (RBC) [Entitic vol] 92.6 fL Normal 80.0-100.0 [facility] Comment on above: Order Comment: Speci men Type: BLOOD SPECIMENOrdering Facility: [facility] Address: [address] [place] [address] Performed By: #### 5 7021-8 ####[facility] LABORATORYCLIA [id number] [address] [place] Monocytes (Bld) [#/Vol] 0.50 10*3/uL Normal <0.87 [facility] Comment on above: Order Comment: Speci men Type: BLOOD SPECIMENOrdering Facility: [facility] Address: [address] [place] [address] Performed By: #### 5 7021-8 ####[facility] LABORATORYCLIA [id number] [address] Monocytes/100 WBC (Bld) 6.5 % Normal [facility] Comment on above: Order Comment: Speci men Type: BLOOD SPECIMENOrdering Facility: [facility] Address: [address] [place] [address] Performed By: #### 5 7021-8 ####[facility]ORATORYCLIA [id number] [address] [place] Neutrophils (Bld) [#/Vol] 5.20 10*3/uL Normal 1.45-7.50 [facility] Comment on above: Order Comment: Speci men Type: BLOOD SPECIMENOrdering Facility: [facility] Address: [address] [place] [address] Performed By: #### 5 7021-8 ####[facility] LABORATORYCLIA [id number] [address] Neutrophils/100 WBC (Bld) 67.4 % Normal [facility] Comment on above: Order Comment: Speci men Type: BLOOD SPECIMENOrdering Facility: [facility] Address: [address] [place] [address] Performed By: #### 5 7021-8 ####[facility] LABORATORYCLIA [id number] [address] [place] Nucleated RBC (Bld) [#/Vol] 10*3/uL Normal <0.01 [facility] Comment on above: Order Comment: Speci men Type: BLOOD SPECIMENOrdering Facility: [facility] Address: [address] [place] [address] Performed By: #### 5 7021-8 ####[facility]ORATORYCLIA [id number] [address] [place] Nucleated RBC/100 WBC (Bld) [Ratio] 0.0 /100 WBC Normal [facility] Comment on above: Order Comment: Speci men Type: BLOOD SPECIMENOrdering Facility: [facility] Address: [address] [place] [address] Performed By: #### 5 7021-8 ####[facility]ORATORYCLIA [id number] [place] [address] [place] Platelet mean volume (Bld) [Entitic vol] 8.9 fL Low 9.0-12.7 [facility] Comment on above: Order Comment: Speci men Type: BLOOD SPECIMENOrdering Facility: [facility] Address: [address] [place] [address] Performed By: #### 5 7021-8 ####[facility] LABORATORYCLIA [id number] [address] STATES OF [facility] Platelets (Bld) [#/Vol] 408 10*3/uL High 150-400 [facility] Comment on above: Order Comment: Speci men Type: BLOOD SPECIMENOrdering Facility: [facility] Address: [address] [place] [address] Performed By: #### 5 7021-8 ####[facility] LABORATORYCLIA [id number] [address] [place] RBC (Bld) [#/Vol] 3.26 10*6/uL Low 4.20-6.00 [facility] Comment on above: Order Comment: Speci men Type: BLOOD SPECIMENOrdering Facility: [facility] Address: [address] [place] [address] Performed By: #### 5 7021-8 ####[facility]ORATORYCLIA [id number] [address] WBC (Bld) [#/Vol] 7.71 10*3/uL Normal 3.70-11.00 [facility] Comment on above: Order Comment: Speci men Type: BLOOD SPECIMENOrdering Facility: [facility] Address: [address] [place] [address] Performed By: #### 5 7021-8 ####[facility] LABORATORYCLIA [id number] [address] [place] CNDSon 08-19-2021 CNDS Normal [facility] CONSULT PROGon 08-19-2021 CONSULT PROG Normal [facility] THERAPY NTon 08-19-2021 THERAPY NT Normal [facility] Basic metabolic 2000 panelon 08-18-2021 Anion gap [Moles/Vol] 11 mmol/L Normal 9-18 [facility] Comment on above: Order Comment: Speci men Type: BLOOD SPECIMENOrdering Facility: [facility] Address: [address] [place] [address] Performed By: #### 2 4321-2 ####[facility]ORATORYCLIA [id number] [place] [address] [place] Calcium [Mass/Vol] 8.6 mg/dL Normal 8.5-10.2 [facility] Comment on above: Order Comment: Speci men Type: BLOOD SPECIMENOrdering Facility: [facility] Address: [address] [place] [address] Performed By: #### 2 4321-2 ####[facility]ORATORYCLIA [id number] [place] [address] [place] Chloride [Moles/Vol] 98 mmol/L Normal 97-105 [facility] Comment on above: Order Comment: Speci men Type: BLOOD SPECIMENOrdering Facility: [facility] Address: [address] [place] [address] Performed By: #### 2 4321-2 ####[facility]ORATORYCLIA [id number] [address] [place] CO2 [Moles/Vol] 28 mmol/L Normal 22-30 [facility] Comment on above: Order Comment: Speci men Type: BLOOD SPECIMENOrdering Facility: [facility] Address: [address] [place] [address] Performed By: #### 2 4321-2 ####[facility]ORATORYCLIA [id number] [address] [place] Creatinine [Mass/Vol] 0.56 mg/dL Low 0.73-1.22 [facility] Comment on above: Order Comment: Speci men Type: BLOOD SPECIMENOrdering Facility: [facility] Address: [address] [place] [address] Performed By: #### 2 4321-2 ####[facility] LABORATORYCLIA [id number] [address] ESTIMATED GLOMERULAR FILTRATION RATE 107 mL/min/1.73m??? Normal >=60 [facility] Comment on above: Order Comment: Speci men Type: BLOOD SPECIMENOrdering Facility: [facility] Address: [address] [place] [id number] Result Comment: Luzmaria mated Glomerular Filtration Rate [...] GFR. Performed By: #### 2 4321-2 ####[facility]ITALIA [id number] [place] [address] [place] Glucose [Mass/Vol] 113 mg/dL High 74-99 [facility] Comment on above: Order Comment: Shira feldman Type: BLOOD SPECIMENOrdering Facility: [facility] Address: [address] [address] Result Comment: The [place] [employer] (ADA) provides guidance for cutoff [...] Standards of Medical Care in Diabetes 2016, [place] [employer]. Diabetes Care. 2016.39(Suppl 1). Performed By: #### 2 4321-2 ####[facility] LABORATORYIA [id number] [place] [address] [place] Potassium [Moles/Vol] 3.5 mmol/L Low 3.7-5.1 [facility] Comment on above: Order Comment: Shira feldman Type: BLOOD SPECIMENOrdering Facility: [facility] Address: [address] [id number] Performed By: #### 2 4321-2 ####[facility] LABORATORYCLIA [id number] [place] [place] [id number] [place] Sodium [Moles/Vol] 137 mmol/L Normal 136-144 [facility] Comment on above: Order Comment: Speci men Type: BLOOD SPECIMENOrdering Facility: [facility] Address: [address] [place] [address] Performed By: #### 2 4321-2 ####[facility] LABORATORYCLIA [id number] [place] [address] [place] Urea nitrogen [Mass/Vol] 10 mg/dL Normal 9-24 [facility] Comment on above: Order Comment: Speci men Type: BLOOD SPECIMENOrdering Facility: [facility] Address: [address] [place] [address] Performed By: #### 2 4321-2 ####[facility]ORATORYCLIA [id number] [address] [place] CBC W Auto Differential pane l (Bld)on 08-18-2021 Basophils (Bld) [#/Vol] 10*3/uL Normal <0.11 [facility] Comment on above: Order Comment: Speci men Type: BLOOD SPECIMENOrdering Facility: [facility] Address: [address] [place] [address] Performed By: #### 5 7021-8 ####[facility]ORATORYCLIA [id number] [address] [place] Basophils/100 WBC (Bld) 0.3 % Normal [facility] Comment on above: Order Comment: Speci men Type: BLOOD SPECIMENOrdering Facility: [facility] Address: [address] [place] [address] Performed By: #### 5 7021-8 ####[facility] LABORATORYCLIA [id number] [address] STATES [facility] Differential cell count method Nom (Bld) Auto Normal [facility] Comment on above: Order Comment: Speci men Type: BLOOD SPECIMENOrdering Facility: [facility] Address: [address] [place] [address] Performed By: #### 5 7021-8 ####[facility]ORATORYCLIA [id number] [address] [place] Eosinophils (Bld) [#/Vol] 0.37 10*3/uL Normal <0.46 [facility] Comment on above: Order Comment: Speci men Type: BLOOD SPECIMENOrdering Facility: [facility] Address: [address] [place] [address] Performed By: #### 5 7021-8 ####[facility]ORATORYCLIA [id number] [address] Eosinophils/100 WBC (Bld) 4.8 % Normal [facility] Comment on above: Order Comment: Speci men Type: BLOOD SPECIMENOrdering Facility: [facility] Address: [address] [place] [address] Performed By: #### 5 7021-8 ####[facility]ORATORYCLIA [id number] [address] Erythrocyte distribution width (RBC) [Ratio] 17.5 % High 11.5-15.0 [facility] Comment on above: Order Comment: Speci men Type: BLOOD SPECIMENOrdering Facility: [facility] Address: [address] [place] [address] Performed By: #### 5 7021-8 ####[facility]ORATORYCLIA [id number] [address] [place] Hematocrit (Bld) [Volume fraction] 30.2 % Low 39.0-51.0 [facility] Comment on above: Order Comment: Speci men Type: BLOOD SPECIMENOrdering Facility: [facility] Address: [address] [place] [address] Performed By: #### 5 7021-8 ####[facility]ORATORYCLIA [id number] [address] [place] Hemoglobin (Bld) [Mass/Vol] 9.5 g/dL Low 13.0-17.0 [facility] Comment on above: Order Comment: Speci men Type: BLOOD SPECIMENOrdering Facility: [facility] Address: [address] [place] [address] Performed By: #### 5 7021-8 ####[facility]ORATORYCLIA [id number] [address] IMMATURE GRAN % 0.4 % Normal [facility] Comment on above: Order Comment: Speci men Type: BLOOD SPECIMENOrdering Facility: [facility] Address: [address] [place] [address] Performed By: #### 5 7021-8 ####[facility]ORATORYCLIA [id number] [address] IMMATURE GRAN ABS 0.03 k/uL Normal <0.10 [facility] Comment on above: Order Comment: Speci men Type: BLOOD SPECIMENOrdering Facility: [facility] Address: [address] [place] [address] Performed By: #### 5 7021-8 ####[facility]ORATORYCLIA [id number] [address] Lymphocytes (Bld) [#/Vol] 1.85 10*3/uL Normal 1.00-4.00 [facility] Comment on above: Order Comment: Speci men Type: BLOOD SPECIMENOrdering Facility: [facility] Address: [address] [place] [address] Performed By: #### 5 7021-8 ####[facility]ORATORYCLIA [id number] [address] Lymphocytes/100 WBC (Bld) 23.8 % Normal [facility] Comment on above: Order Comment: Speci men Type: BLOOD SPECIMENOrdering Facility: [facility] Address: [address] [place] [address] Performed By: #### 5 7021-8 ####[facility]ATORYCLIA [id number] [address] [place] MCH (RBC) [Entitic mass] 29.5 pg Normal 26.0-34.0 [facility] Comment on above: Order Comment: Speci men Type: BLOOD SPECIMENOrdering Facility: [facility] Address: [address] [place] [address] Performed By: #### 5 7021-8 ####[facility]ORATORYCLIA [id number] [address] [place] MCHC (RBC) [Mass/Vol] 31.5 g/dL Normal 30.5-36.0 [facility] Comment on above: Order Comment: Speci men Type: BLOOD SPECIMENOrdering Facility: [facility] Address: [address] [place] [address] Performed By: #### 5 7021-8 ####[facility]ORATORYCLIA [id number] [address] [place] MCV (RBC) [Entitic vol] 93.8 fL Normal 80.0-100.0 [facility] Comment on above: Order Comment: Speci men Type: BLOOD SPECIMENOrdering Facility: [facility] Address: [address] [place] [address] Performed By: #### 5 7021-8 ####[facility]ORATORYCLIA [id number] [address] [place] Monocytes (Bld) [#/Vol] 0.49 10*3/uL Normal <0.87 [facility] Comment on above: Order Comment: Speci men Type: BLOOD SPECIMENOrdering Facility: [facility] Address: [address] [place] [address] Performed By: #### 5 7021-8 ####[facility]ORATORYCLIA [id number] [address] Monocytes/100 WBC (Bld) 6.3 % Normal [facility] Comment on above: Order Comment: Speci men Type: BLOOD SPECIMENOrdering Facility: [facility] Address: [address] [place] [address] Performed By: #### 5 7021-8 ####[facility]ORATORYCLIA [id number] [address] [place] Neutrophils (Bld) [#/Vol] 5.00 10*3/uL Normal 1.45-7.50 [facility] Comment on above: Order Comment: Speci men Type: BLOOD SPECIMENOrdering Facility: [facility] Address: [address] [address] Performed By: #### 5 7021-8 ####[facility]ORATORYCLIA [id number] [address] [place] Neutrophils/100 WBC (Bld) 64.4 % Normal [facility] Comment on above: Order Comment: Speci men Type: BLOOD SPECIMENOrdering Facility: [facility] Address: [address] [place] [address] Performed By: #### 5 7021-8 ####[facility]ORATORYCLIA [id number] [address] [place] Nucleated RBC (Bld) [#/Vol] 10*3/uL Normal <0.01 [facility] Comment on above: Order Comment: Speci men Type: BLOOD SPECIMENOrdering Facility: [facility] Address: [address] [place] [address] Performed By: #### 5 7021-8 ####[facility]ORATORYCLIA [id number] [address] [place] Nucleated RBC/100 WBC (Bld) [Ratio] 0.0 /100 WBC Normal [facility] Comment on above: Order Comment: Speci men Type: BLOOD SPECIMENOrdering Facility: [facility] Address: [address] [place] [address] Performed By: #### 5 7021-8 ####[facility]ORATORYCLIA [id number] [address] [place] Platelet mean volume (Bld) [Entitic vol] 9.1 fL Normal 9.0-12.7 [facility] Comment on above: Order Comment: Speci men Type: BLOOD SPECIMENOrdering Facility: [facility] Address: [address] [place] [address] Performed By: #### 5 7021-8 ####[facility]ORATORYCLIA [id number] [address] [place] Platelets (Bld) [#/Vol] 391 10*3/uL Normal 150-400 [facility] Comment on above: Order Comment: Speci men Type: BLOOD SPECIMENOrdering Facility: [facility] Address: [address] [place] [address] Performed By: #### 5 7021-8 ####[facility]ORATORYCLIA [id number] [place] [address] [place] RBC (Bld) [#/Vol] 3.22 10*6/uL Low 4.20-6.00 [facility] Comment on above: Order Comment: Speci men Type: BLOOD SPECIMENOrdering Facility: [facility] Address: [address] [place] [address] Performed By: #### 5 7021-8 ####[facility]ORATORYCLIA [id number] [address] STATES OF [facility] WBC (Bld) [#/Vol] 7.76 10*3/uL Normal 3.70-11.00 [facility] Comment on above: Order Comment: Speci men Type: BLOOD SPECIMENOrdering Facility: [facility] Address: [address] [place] [address] Performed By: #### 5 7021-8 ####[facility]ORATORYCLIA [id number] [address] CONSULT PROGon 08-18-2021 CONSULT PROG Normal [facility] CASE MANAGEMon 08-17-2021 CASE MANAGEM Normal [facility] CBC W Auto Differential pane l (Bld)on 08-17-2021 Basophils (Bld) [#/Vol] 0.04 10*3/uL Normal <0.11 [facility] Comment on above: Order Comment: Speci men Type: BLOOD SPECIMENOrdering Facility: [facility] Address: [address] [place] [address] Performed By: #### 5 7021-8 ####[facility]ORATORYCLIA [id number] [address] Basophils/100 WBC (Bld) 0.5 % Normal [facility] Comment on above: Order Comment: Speci men Type: BLOOD SPECIMENOrdering Facility: [facility] Address: [address] [place] [address] Performed By: #### 5 7021-8 ####[facility]ORATORYCLIA [id number] [address] [place] Differential cell count method Nom (Bld) Auto Normal [facility] Comment on above: Order Comment: Speci men Type: BLOOD SPECIMENOrdering Facility: [facility] Address: [address] [place] [address] Performed By: #### 5 7021-8 ####[facility] LABORATORYCLIA [id number] [address] [place] Eosinophils (Bld) [#/Vol] 0.31 10*3/uL Normal <0.46 [facility] Comment on above: Order Comment: Speci men Type: BLOOD SPECIMENOrdering Facility: [facility] Address: [address] [place] [address] Performed By: #### 5 7021-8 ####[facility] LABORATORYCLIA [id number] [address] [place] Eosinophils/100 WBC (Bld) 3.7 % Normal [facility] Comment on above: Order Comment: Speci men Type: BLOOD SPECIMENOrdering Facility: [facility] Address: [address] [place] [address] Performed By: #### 5 7021-8 ####[facility] LABORATORYCLIA [id number] [address] [place] Erythrocyte distribution width (RBC) [Ratio] 17.4 % High 11.5-15.0 [facility] Comment on above: Order Comment: Speci men Type: BLOOD SPECIMENOrdering Facility: [facility] Address: [address] [place] [address] Performed By: #### 5 7021-8 ####[facility] LABORATORYCLIA [id number] [address] Hematocrit (Bld) [Volume fraction] 30.6 % Low 39.0-51.0 [facility] Comment on above: Order Comment: Speci men Type: BLOOD SPECIMENOrdering Facility: [facility] Address: [address] [place] [address] Performed By: #### 5 7021-8 ####[facility] LABORATORYCLIA [id number] [address] Hemoglobin (Bld) [Mass/Vol] 9.6 g/dL Low 13.0-17.0 [facility] Comment on above: Order Comment: Speci men Type: BLOOD SPECIMENOrdering Facility: [facility] Address: [address] [place] [address] Performed By: #### 5 7021-8 ####[facility] LABORATORYCLIA [id number] [address] IMMATURE GRAN % 0.2 % Normal [facility] Comment on above: Order Comment: Speci men Type: BLOOD SPECIMENOrdering Facility: [facility] Address: [address] [place] [address] Performed By: #### 5 7021-8 ####[facility] LABORATORYCLIA [id number] [address] IMMATURE GRAN ABS <0.03 Normal <0.10 [facility] Comment on above: Order Comment: Speci men Type: BLOOD SPECIMENOrdering Facility: [facility] Address: [address] [place] [address] Performed By: #### 5 7021-8 ####[facility] LABORATORYCLIA [id number] [address] [place] Lymphocytes (Bld) [#/Vol] 1.66 10*3/uL Normal 1.00-4.00 [facility] Comment on above: Order Comment: Speci men Type: BLOOD SPECIMENOrdering Facility: [facility] Address: [address] [place] [address] Performed By: #### 5 7021-8 ####[facility] LABORATORYCLIA [id number] [address] Lymphocytes/100 WBC (Bld) 19.9 % Normal [facility] Comment on above: Order Comment: Speci men Type: BLOOD SPECIMENOrdering Facility: [facility] Address: [address] [place] [address] Performed By: #### 5 7021-8 ####[facility] LABORATORYCLIA [id number] [address] MCH (RBC) [Entitic mass] 28.9 pg Normal 26.0-34.0 [facility] Comment on above: Order Comment: Speci men Type: BLOOD SPECIMENOrdering Facility: [facility] Address: [address] [place] [address] Performed By: #### 5 7021-8 ####[facility] LABORATORYCLIA [id number] [address] MCHC (RBC) [Mass/Vol] 31.4 g/dL Normal 30.5-36.0 [facility] Comment on above: Order Comment: Speci men Type: BLOOD SPECIMENOrdering Facility: [facility] Address: [address] [place] [address] Performed By: #### 5 7021-8 ####[facility] LABORATORYCLIA [id number] [address] [place] MCV (RBC) [Entitic vol] 92.2 fL Normal 80.0-100.0 [facility] Comment on above: Order Comment: Speci men Type: BLOOD SPECIMENOrdering Facility: [facility] Address: [address] [place] [address] Performed By: #### 5 7021-8 ####[facility] LABORATORYCLIA [id number] [place] [address] [place] Monocytes (Bld) [#/Vol] 0.52 10*3/uL Normal <0.87 [facility] Comment on above: Order Comment: Speci men Type: BLOOD SPECIMENOrdering Facility: [facility] Address: [address] [place] [address] Performed By: #### 5 7021-8 ####[facility]ORATORYCLIA [id number] [place] [address] [place] Monocytes/100 WBC (Bld) 6.2 % Normal [facility] Comment on above: Order Comment: Speci men Type: BLOOD SPECIMENOrdering Facility: [facility] Address: [address] [place] [address] Performed By: #### 5 7021-8 ####[facility] LABORATORYCLIA [id number] [address] [place] Neutrophils (Bld) [#/Vol] 5.78 10*3/uL Normal 1.45-7.50 [facility] Comment on above: Order Comment: Speci men Type: BLOOD SPECIMENOrdering Facility: [facility] Address: [address] [place] [address] Performed By: #### 5 7021-8 ####[facility] LABORATORYCLIA [id number] [address] [place] Neutrophils/100 WBC (Bld) 69.5 % Normal [facility] Comment on above: Order Comment: Speci men Type: BLOOD SPECIMENOrdering Facility: [facility] Address: [address] [place] [address] Performed By: #### 5 7021-8 ####[facility] LABORATORYCLIA [id number] [place] [address] [place] Nucleated RBC (Bld) [#/Vol] 10*3/uL Normal <0.01 [facility] Comment on above: Order Comment: Speci men Type: BLOOD SPECIMENOrdering Facility: [facility] Address: [address] [place], [place] [address] Performed By: #### 5 7021-8 ####[facility] LABORATORYCLIA [id number] [address] Nucleated RBC/100 WBC (Bld) [Ratio] 0.0 /100 WBC Normal [facility] Comment on above: Order Comment: Speci men Type: BLOOD SPECIMENOrdering Facility: [facility] Address: [address] [place] [address] Performed By: #### 5 7021-8 ####[facility] LABORATORYCLIA [id number] [address] [place] Platelet mean volume (Bld) [Entitic vol] 9.2 fL Normal 9.0-12.7 [facility] Comment on above: Order Comment: Speci men Type: BLOOD SPECIMENOrdering Facility: [facility] Address: [address] [place] [address] Performed By: #### 5 7021-8 ####[facility] LABORATORYCLIA [id number] [address] [place] Platelets (Bld) [#/Vol] 379 10*3/uL Normal 150-400 [facility] Comment on above: Order Comment: Speci men Type: BLOOD SPECIMENOrdering Facility: [facility] Address: [address] [place] [address] Performed By: #### 5 7021-8 ####[facility] LABORATORYCLIA [id number] [address] [place] RBC (Bld) [#/Vol] 3.32 10*6/uL Low 4.20-6.00 [facility] Comment on above: Order Comment: Speci men Type: BLOOD SPECIMENOrdering Facility: [facility] Address: [address] [place] [address] Performed By: #### 5 7021-8 ####[facility] LABORATORYCLIA [id number] [address] [place] WBC (Bld) [#/Vol] 8.33 10*3/uL Normal 3.70-11.00 [facility] Comment on above: Order Comment: Speci men Type: BLOOD SPECIMENOrdering Facility: [facility] Address: [address] [place] [address] Performed By: #### 5 7021-8 ####[facility] LABORATORYCLIA [id number] [place] [address] [place] CONSULT PROGon 08-17-2021 CONSULT PROG Normal [facility] NUTRITIONon 08-17-2021 NUTRITION Normal [facility] Basic metabolic 2000 panelon 08-16-2021 Anion gap [Moles/Vol] 14 mmol/L Normal 9-18 [facility] Comment on above: Order Comment: Speci men Type: BLOOD SPECIMENOrdering Facility: [facility] Address: [address] [place] [address] Performed By: #### 2 4321-2, ####[facility] LABORATORYCLIA [id number] [place] [address] [place] Calcium [Mass/Vol] 8.8 mg/dL Normal 8.5-10.2 [facility] Comment on above: Order Comment: Speci men Type: BLOOD SPECIMENOrdering Facility: [facility] Address: [address] [place] [address] Performed By: #### 2 4321-2, ####[facility] LABORATORYCLIA [id number] [place] [address] [place] Chloride [Moles/Vol] 97 mmol/L Normal 97-105 [facility] Comment on above: Order Comment: Speci men Type: BLOOD SPECIMENOrdering Facility: [facility] Address: [address] [place] [address] Performed By: #### 2 4321-2, ####[facility] LABORATORYCLIA [id number] [place] [address] [place] CO2 [Moles/Vol] 27 mmol/L Normal 22-30 [facility] Comment on above: Order Comment: Speci men Type: BLOOD SPECIMENOrdering Facility: [facility] Address: [address] [address] Performed By: #### 2 43205-08, ####[facility] HE[facility] SERVICESCLIA [id number] [address] STATES OF [facility] Creatinine [Mass/Vol] 0.50 mg/dL Low 0.73-1.22 [facility] Comment on above: Order Comment: Speci men Type: BLOOD SPECIMENOrdering Facility: [facility] Address: [address] [place] [address] Performed By: #### 2 43205-08, ####[facility] [id number] [address] ESTIMATED GLOMERULAR FILTRATION RATE 110 mL/min/1.73m??? Normal >=60 [facility] Comment on above: Order Comment: Shira men Type: BLOOD SPECIMENOrdering Facility: [facility] Address: [address] [place] [address] Result Comment: Luzmaria mated Glomerular Filtration Rate [...] GFR. Performed By: #### 2 432-, ####[facility]ITAL[facility] [id number] [address] [place] Glucose [Mass/Vol] 101 mg/dL High 74-99 [facility] Comment on above: Order Comment: Shira feldman Type: BLOOD SPECIMENOrdering Facility: [facility] Address: [address] [place] [address] Result Comment: The [place] [employer] (ADA) provides guidance for cutoff [...] Standards of Medical Care in Diabetes 2016, [place] [employer]. Diabetes Care. 2016.39(Suppl 1). Performed By: #### 2 4320-06, ####[facility] LABORATORYCLIA [id number] [place] [address] [place] Potassium [Moles/Vol] 3.6 mmol/L Low 3.7-5.1 [facility] Comment on above: Order Comment: Shira feldman Type: BLOOD SPECIMENOrdering Facility: [facility] Address: [address] [place] [address] Performed By: #### 2 4320-06, ####[facility] [id number] [address] STATES OF [facility] Sodium [Moles/Vol] 138 mmol/L Normal 136-144 [facility] Comment on above: Order Comment: Shira feldman Type: BLOOD SPECIMENOrdering Facility: [facility] Address: [address] [place] [address] Performed By: #### 2 4320-06, ####[facility] LABORATORYCLIA [id number] [address] [place] Urea nitrogen [Mass/Vol] 11 mg/dL Normal 9-24 [facility] Comment on above: Order Comment: Shira feldman Type: BLOOD SPECIMENOrdering Facility: [facility] Address: [address] [place] [address] Performed By: #### 2 4320-06, ####[facility] LABORATORYCLIA [id number] [address] [place] CASE MANAGEMon 08-16-2021 CASE MANAGEM Normal [facility] CBC W Auto Differential pane l (Bld)on 08-16-2021 Basophils (Bld) [#/Vol] 0.03 10*3/uL Normal <0.11 [facility] Comment on above: Order Comment: Speci men Type: BLOOD SPECIMENOrdering Facility: [facility] Address: [address] [address] Performed By: #### 5 7021-8 ####[facility] LABORATORYCLIA [id number] [place] [address] [place] Basophils/100 WBC (Bld) 0.4 % Normal [facility] Comment on above: Order Comment: Speci men Type: BLOOD SPECIMENOrdering Facility: [facility] Address: [address] [place] [address] Performed By: #### 5 7021-8 ####[facility] LABORATORYCLIA [id number] [address] [place] Differential cell count method Nom (Bld) Auto Normal [facility] Comment on above: Order Comment: Speci men Type: BLOOD SPECIMENOrdering Facility: [facility] Address: [address] [place] [address] Performed By: #### 5 7021-8 ####[facility] LABORATORYCLIA [id number] [place] [address] [place] Eosinophils (Bld) [#/Vol] 0.19 10*3/uL Normal <0.46 [facility] Comment on above: Order Comment: Speci men Type: BLOOD SPECIMENOrdering Facility: [facility] Address: [address] [place] [address] Performed By: #### 5 7021-8 ####[facility]ORATORYCLIA [id number] [address] [place] Eosinophils/100 WBC (Bld) 2.5 % Normal [facility] Comment on above: Order Comment: Speci men Type: BLOOD SPECIMENOrdering Facility: [facility] Address: [address] [place] [address] Performed By: #### 5 7021-8 ####[facility] LABORATORYCLIA [id number] [address] STATES OF [facility] Erythrocyte distribution width (RBC) [Ratio] 17.1 % High 11.5-15.0 [facility] Comment on above: Order Comment: Speci men Type: BLOOD SPECIMENOrdering Facility: [facility] Address: [address] [place] [address] Performed By: #### 5 7021-8 ####[facility] LABORATORYCLIA [id number] [address] OF [facility] Hematocrit (Bld) [Volume fraction] 29.2 % Low 39.0-51.0 [facility] Comment on above: Order Comment: Speci men Type: BLOOD SPECIMENOrdering Facility: [facility] Address: [address] [place] [address] Performed By: #### 5 7021-8 ####[facility] LABORATORYCLIA [id number] [address] Hemoglobin (Bld) [Mass/Vol] 9.0 g/dL Low 13.0-17.0 [facility] Comment on above: Order Comment: Speci men Type: BLOOD SPECIMENOrdering Facility: [facility] Address: [address] [place] [address] Performed By: #### 5 7021-8 ####[facility]ORATORYCLIA [id number] [address] IMMATURE GRAN % 0.3 % Normal [facility] Comment on above: Order Comment: Speci men Type: BLOOD SPECIMENOrdering Facility: [facility] Address: [address] [place] [address] Performed By: #### 5 7021-8 ####[facility]ORATORYCLIA [id number] [address] IMMATURE GRAN ABS <0.03 Normal <0.10 [facility] Comment on above: Order Comment: Speci men Type: BLOOD SPECIMENOrdering Facility: [facility] Address: [address] [address] Performed By: #### 5 7021-8 ####[facility] LABORATORYCLIA [id number] [address] [place] Lymphocytes (Bld) [#/Vol] 1.41 10*3/uL Normal 1.00-4.00 [facility] Comment on above: Order Comment: Speci men Type: BLOOD SPECIMENOrdering Facility: [facility] Address: [address] [place] [address] Performed By: #### 5 7021-8 ####[facility] LABORATORYCLIA [id number] [address] Lymphocytes/100 WBC (Bld) 18.4 % Normal [facility] Comment on above: Order Comment: Speci men Type: BLOOD SPECIMENOrdering Facility: [facility] Address: [address] [place] [address] Performed By: #### 5 7021-8 ####[facility] LABORATORYCLIA [id number] [address] STATES OF [facility] MCH (RBC) [Entitic mass] 28.0 pg Normal 26.0-34.0 [facility] Comment on above: Order Comment: Speci men Type: BLOOD SPECIMENOrdering Facility: [facility] Address: [address] [place] [address] Performed By: #### 5 7021-8 ####[facility] LABORATORYCLIA [id number] [address] [place] MCHC (RBC) [Mass/Vol] 30.8 g/dL Normal 30.5-36.0 [facility] Comment on above: Order Comment: Speci men Type: BLOOD SPECIMENOrdering Facility: [facility] Address: [address] [place] [address] Performed By: #### 5 7021-8 ####[facility]ORATORYCLIA [id number] [address] [place] MCV (RBC) [Entitic vol] 91.0 fL Normal 80.0-100.0 [facility] Comment on above: Order Comment: Speci men Type: BLOOD SPECIMENOrdering Facility: [facility] Address: [address] [place] [address] Performed By: #### 5 7021-8 ####[facility]ORATORYCLIA [id number] [place] [address] [place] Monocytes (Bld) [#/Vol] 0.47 10*3/uL Normal <0.87 [facility] Comment on above: Order Comment: Speci men Type: BLOOD SPECIMENOrdering Facility: [facility] Address: [address] [place] [address] Performed By: #### 5 7021-8 ####[facility]ORATORYCLIA [id number] [address] [place] Monocytes/100 WBC (Bld) 6.1 % Normal [facility] Comment on above: Order Comment: Speci men Type: BLOOD SPECIMENOrdering Facility: [facility] Address: [address] [place] [address] Performed By: #### 5 7021-8 ####[facility]ORATORYCLIA [id number] [place] [address] [place] Neutrophils (Bld) [#/Vol] 5.55 10*3/uL Normal 1.45-7.50 [facility] Comment on above: Order Comment: Speci men Type: BLOOD SPECIMENOrdering Facility: [facility] Address: [address] [place] [address] Performed By: #### 5 7021-8 ####[facility]ORATORYCLIA [id number] [place] [address] [place] Neutrophils/100 WBC (Bld) 72.3 % Normal [facility] Comment on above: Order Comment: Speci men Type: BLOOD SPECIMENOrdering Facility: [facility] Address: [address] [place] [address] Performed By: #### 5 7021-8 ####[facility]ORATORYCLIA [id number] [address] [place] Nucleated RBC (Bld) [#/Vol] 10*3/uL Normal <0.01 [facility] Comment on above: Order Comment: Speci men Type: BLOOD SPECIMENOrdering Facility: [facility] Address: [address] [place] [address] Performed By: #### 5 7021-8 ####[facility] LABORATORYCLIA [id number] [address] [place] Nucleated RBC/100 WBC (Bld) [Ratio] 0.0 /100 WBC Normal [facility] Comment on above: Order Comment: Speci men Type: BLOOD SPECIMENOrdering Facility: [facility] Address: [address] [place] [address] Performed By: #### 5 7021-8 ####[facility] LABORATORYCLIA [id number] [address] [place] Platelet mean volume (Bld) [Entitic vol] 9.3 fL Normal 9.0-12.7 [facility] Comment on above: Order Comment: Speci men Type: BLOOD SPECIMENOrdering Facility: [facility] Address: [address] [place] [address] Performed By: #### 5 7021-8 ####[facility] LABORATORYCLIA [id number] [address] [place] Platelets (Bld) [#/Vol] 319 10*3/uL Normal 150-400 [facility] Comment on above: Order Comment: Speci men Type: BLOOD SPECIMENOrdering Facility: [facility] Address: [address] [place] [address] Performed By: #### 5 7021-8 ####[facility]ORATORYCLIA [id number] [address] [place] RBC (Bld) [#/Vol] 3.21 10*6/uL Low 4.20-6.00 [facility] Comment on above: Order Comment: Speci men Type: BLOOD SPECIMENOrdering Facility: [facility] Address: [address] [place] [address] Performed By: #### 5 7021-8 ####[facility]ORATORYCLIA [id number] [address] [place] WBC (Bld) [#/Vol] 7.67 10*3/uL Normal 3.70-11.00 [facility] Comment on above: Order Comment: Speci men Type: BLOOD SPECIMENOrdering Facility: [facility] Address: [address] [place] [address] Performed By: #### 5 7021-8 ####[facility] LABORATORYCLIA [id number] [address] [place] Basophils (Bld) [#/Vol] 0.04 10*3/uL Normal <0.11 [facility] Comment on above: Order Comment: Speci men Type: BLOOD SPECIMENOrdering Facility: [facility] Address: [address] [place] [address] Performed By: #### 5 7021-8 ####[facility]ORATORYCLIA [id number] [address] [place] Basophils/100 WBC (Bld) 0.5 % Normal [facility] Comment on above: Order Comment: Speci men Type: BLOOD SPECIMENOrdering Facility: [facility] Address: [address] [place] [address] Performed By: #### 5 7021-8 ####[facility]ORATORYCLIA [id number] [address] [place] Differential cell count method Nom (Bld) Auto Normal [facility] Comment on above: Order Comment: Speci men Type: BLOOD SPECIMENOrdering Facility: [facility] Address: [address] [place] [address] Performed By: #### 5 7021-8 ####[facility]ORATORYCLIA [id number] [place] [address] [place] Eosinophils (Bld) [#/Vol] 0.19 10*3/uL Normal <0.46 [facility] Comment on above: Order Comment: Speci men Type: BLOOD SPECIMENOrdering Facility: [facility] Address: [address] [place] [address] Performed By: #### 5 7021-8 ####[facility]ORATORYCLIA [id number] [address] Eosinophils/100 WBC (Bld) 2.5 % Normal [facility] Comment on above: Order Comment: Speci men Type: BLOOD SPECIMENOrdering Facility: [facility] Address: [address] [place] [address] Performed By: #### 5 7021-8 ####[facility] LABORATORYCLIA [id number] [address] [place] Erythrocyte distribution width (RBC) [Ratio] 17.2 % High 11.5-15.0 [facility] Comment on above: Order Comment: Speci men Type: BLOOD SPECIMENOrdering Facility: [facility] Address: [address] [place] [address] Performed By: #### 5 7021-8 ####[facility] LABORATORYCLIA [id number] [address] [place] Hematocrit (Bld) [Volume fraction] 29.5 % Low 39.0-51.0 [facility] Comment on above: Order Comment: Speci men Type: BLOOD SPECIMENOrdering Facility: [facility] Address: [address] [place] [address] Performed By: #### 5 7021-8 ####[facility] LABORATORYCLIA [id number] [address] [place] Hemoglobin (Bld) [Mass/Vol] 9.2 g/dL Low 13.0-17.0 [facility] Comment on above: Order Comment: Speci men Type: BLOOD SPECIMENOrdering Facility: [facility] Address: [address] [place] [address] Performed By: #### 5 7021-8 ####[facility]ORATORYCLIA [id number] [address] IMMATURE GRAN % 0.4 % Normal [facility] Comment on above: Order Comment: Speci men Type: BLOOD SPECIMENOrdering Facility: [facility] Address: [address] [place] [address] Performed By: #### 5 7021-8 ####[facility] LABORATORYCLIA [id number] [address] IMMATURE GRAN ABS 0.03 k/uL Normal <0.10 [facility] Comment on above: Order Comment: Speci men Type: BLOOD SPECIMENOrdering Facility: [facility] Address: [address] [place] [address] Performed By: #### 5 7021-8 ####[facility] LABORATORYCLIA [id number] [address] [place] Lymphocytes (Bld) [#/Vol] 1.50 10*3/uL Normal 1.00-4.00 [facility] Comment on above: Order Comment: Speci men Type: BLOOD SPECIMENOrdering Facility: [facility] Address: [address] [place] [address] Performed By: #### 5 7021-8 ####[facility] LABORATORYCLIA [id number] [address] Lymphocytes/100 WBC (Bld) 19.7 % Normal [facility] Comment on above: Order Comment: Speci men Type: BLOOD SPECIMENOrdering Facility: [facility] Address: [address] [place] [address] Performed By: #### 5 7021-8 ####[facility] LABORATORYCLIA [id number] [address] [place] MCH (RBC) [Entitic mass] 28.3 pg Normal 26.0-34.0 [facility] Comment on above: Order Comment: Speci men Type: BLOOD SPECIMENOrdering Facility: [facility] Address: [address] [place] [address] Performed By: #### 5 7021-8 ####[facility] LABORATORYCLIA [id number] [address] STATES [facility] MCHC (RBC) [Mass/Vol] 31.2 g/dL Normal 30.5-36.0 [facility] Comment on above: Order Comment: Speci men Type: BLOOD SPECIMENOrdering Facility: [facility] Address: [address] [place] [address] Performed By: #### 5 7021-8 ####[facility] LABORATORYCLIA [id number] [address] MCV (RBC) [Entitic vol] 90.8 fL Normal 80.0-100.0 [facility] Comment on above: Order Comment: Speci men Type: BLOOD SPECIMENOrdering Facility: [facility] Address: [address] [place] [address] Performed By: #### 5 7021-8 ####[facility] LABORATORYCLIA [id number] [address] OF [facility] Monocytes (Bld) [#/Vol] 0.49 10*3/uL Normal <0.87 [facility] Comment on above: Order Comment: Speci men Type: BLOOD SPECIMENOrdering Facility: [facility] Address: [address] [place] [address] Performed By: #### 5 7021-8 ####[facility] LABORATORYCLIA [id number] [address] Monocytes/100 WBC (Bld) 6.4 % Normal [facility] Comment on above: Order Comment: Speci men Type: BLOOD SPECIMENOrdering Facility: [facility] Address: [address] [place] [address] Performed By: #### 5 7021-8 ####[facility] LABORATORYCLIA [id number] [address] [place] Neutrophils (Bld) [#/Vol] 5.38 10*3/uL Normal 1.45-7.50 [facility] Comment on above: Order Comment: Speci men Type: BLOOD SPECIMENOrdering Facility: [facility] Address: [address] [address] Performed By: #### 5 7021-8 ####[facility] LABORATORYCLIA [id number] [address] Neutrophils/100 WBC (Bld) 70.5 % Normal [facility] Comment on above: Order Comment: Speci men Type: BLOOD SPECIMENOrdering Facility: [facility] Address: [address] [place] [address] Performed By: #### 5 7021-8 ####[facility] LABORATORYCLIA [id number] [address] Nucleated RBC (Bld) [#/Vol] 10*3/uL Normal <0.01 [facility] Comment on above: Order Comment: Speci men Type: BLOOD SPECIMENOrdering Facility: [facility] Address: [address] [place] [address] Performed By: #### 5 7021-8 ####[facility] LABORATORYCLIA [id number] [address] Nucleated RBC/100 WBC (Bld) [Ratio] 0.0 /100 WBC Normal [facility] Comment on above: Order Comment: Speci men Type: BLOOD SPECIMENOrdering Facility: [facility] Address: [address] [place] [address] Performed By: #### 5 7021-8 ####[facility] LABORATORYCLIA [id number] [address] OF [place] Platelet mean volume (Bld) [Entitic vol] 9.0 fL Normal 9.0-12.7 [facility] Comment on above: Order Comment: Speci men Type: BLOOD SPECIMENOrdering Facility: [facility] Address: [address] [place] [address] Performed By: #### 5 7021-8 ####[facility] LABORATORYCLIA [id number] [address] Platelets (Bld) [#/Vol] 316 10*3/uL Normal 150-400 [facility] Comment on above: Order Comment: Speci men Type: BLOOD SPECIMENOrdering Facility: [facility] Address: [address] [place] [address] Performed By: #### 5 7021-8 ####[facility] LABORATORYCLIA [id number] [place] [address] [place] RBC (Bld) [#/Vol] 3.25 10*6/uL Low 4.20-6.00 [facility] Comment on above: Order Comment: Speci men Type: BLOOD SPECIMENOrdering Facility: [facility] Address: [address] [place] [address] Performed By: #### 5 7021-8 ####[facility] LABORATORYCLIA [id number] [address] OF [facility] WBC (Bld) [#/Vol] 7.63 10*3/uL Normal 3.70-11.00 [facility] Comment on above: Order Comment: Speci men Type: BLOOD SPECIMENOrdering Facility: [facility] Address: [address] [place] [address] Performed By: #### 5 7021-8 ####[facility] LABORATORYCLIA [id number] [address] OF [place] Basophils (Bld) [#/Vol] Normal <0.11 [facility] Comment on above: Order Comment: Speci men Type: BLOOD SPECIMENOrdering Facility: [facility] Address: [address] [place] [address] Result Comment: Carolina Owens RN informed lab after results autoverified that she rd on the wrong patient. Lab to credit. Nurse to redraw on correct patient.Corrected result: Previously reported as 0.04 k/uL on 08/16/2021 at 4:44 AM EDT. Performed By: #### 5 7021-8 ####[facility] LABORATORYCLIA [id number] [address] OF [place] Basophils/100 WBC (Bld) Normal [facility] Comment on above: Order Comment: Speci men Type: BLOOD SPECIMENOrdering Facility: [facility] Address: [address] [place] [address] Result Comment: Tati ected result: Previously reported as 0.4 % on 08/16/2021 at 4:44 AM EDT. Performed By: #### 5 7021-8 ####[facility] LABORATORYCLIA [id number] [address] CBC W Differential panel, method unspecified (Bld) Normal [facility] Comment on above: Order Comment: Speci men Type: BLOOD SPECIMENOrdering Facility: [facility] Address: [address] [place] [address] Result Comment: Carolina Owens RN informed lab after results autoverified that she rd on the wrong patient. Lab to credit. Nurse to redraw on correct patient. Performed By: #### 5 7021-8 ####[facility] LABORATORYCLIA [id number] [address] Differential cell count method Nom (Bld) Normal [facility] Comment on above: Order Comment: Speci men Type: BLOOD SPECIMENOrdering Facility: [facility] Address: [address] [place] [address] Result Comment: Carolina Owens RN informed lab after results autoverified that she rd on the wrong patient. Lab to credit. Nurse to redraw on correct patient.Corrected result: Previously reported as Auto on 08/16/2021 at 4:44 AM EDT. Performed By: #### 5 7021-8 ####[facility] LABORATORYCLIA [id number] [address] [place] Eosinophils (Bld) [#/Vol] Normal <0.46 [facility] Comment on above: Order Comment: Speci men Type: BLOOD SPECIMENOrdering Facility: [facility] Address: [address] [place] [address] Result Comment: Carolina Owens RN informed lab after results autoverified that she rd on the wrong patient. Lab to credit. Nurse to redraw on correct patient.Corrected result: Previously reported as 0.07 k/uL on 08/16/2021 at 4:44 AM EDT. Performed By: #### 5 7021-8 ####[facility] LABORATORYCLIA [id number] [address] [place] Eosinophils/100 WBC (Bld) Normal [facility] Comment on above: Order Comment: Speci men Type: BLOOD SPECIMENOrdering Facility: [facility] Address: [address] [place] [address] Result Comment: Carolina Owens RN informed lab after results autoverified that she rd on the wrong patient. Lab to credit. Nurse to redraw on correct patient.Corrected result: Previously reported as 0.7 % on 08/16/2021 at 4:44 AM EDT. Performed By: #### 5 7021-8 ####[facility] LABORATORYCLIA [id number] [address] Erythrocyte distribution width (RBC) [Ratio] Normal 11.5-15.0 [facility] Comment on above: Order Comment: Speci men Type: BLOOD SPECIMENOrdering Facility: [facility] Address: [address] [place] [address] Result Comment: Carolina Owens RN informed lab after results autoverified that she rd on the wrong patient. Lab to credit. Nurse to redraw on correct patient.Corrected result: Previously reported as 14.2 % on 08/16/2021 at 4:44 AM EDT. Performed By: #### 5 7021-8 ####[facility] LABORATORYCLIA [id number] [address] [place] Hematocrit (Bld) [Volume fraction] Normal 39.0-51.0 [facility] Comment on above: Order Comment: Speci men Type: BLOOD SPECIMENOrdering Facility: [facility] Address: [address] [place] [address] Result Comment: Carolina Owens RN informed lab after results autoverified that she rd on the wrong patient. Lab to credit. Nurse to redraw on correct patient.Corrected result: Previously reported as 34.3 % on 08/16/2021 at 4:44 AM EDT. Performed By: #### 5 7021-8 ####[facility]ORATORYCLIA [id number] [address] Hemoglobin (Bld) [Mass/Vol] Normal 13.0-17.0 [facility] Comment on above: Order Comment: Speci men Type: BLOOD SPECIMENOrdering Facility: [facility] Address: [address] [place] [address] Result Comment: Carolina Owens RN informed lab after results autoverified that she rd on the wrong patient. Lab to credit. Nurse to redraw on correct patient.Corrected result: Previously reported as 11.2 g/dL on 08/16/2021 at 4:44 AM EDT. Performed By: #### 5 7021-8 ####[facility]ORATORYCLIA [id number] [address] IMMATURE GRAN % Normal [facility] Comment on above: Order Comment: Speci men Type: BLOOD SPECIMENOrdering Facility: [facility] Address: [address] [place] [address] Result Comment: Carolina Owens RN informed lab after results autoverified that she rd on the wrong patient. Lab to credit. Nurse to redraw on correct patient.Corrected result: Previously reported as 0.8 % on 08/16/2021 at 4:44 AM EDT. Performed By: #### 5 7021-8 ####[facility] LABORATORYCLIA [id number] [address] IMMATURE GRAN ABS Normal <0.10 [facility] Comment on above: Order Comment: Speci men Type: BLOOD SPECIMENOrdering Facility: [facility] Address: [address] [place] [address] Result Comment: Tati ected result: Previously reported as 0.08 k/uL on 08/16/2021 at 4:44 AM EDT. Performed By: #### 5 7021-8 ####[facility]ORATORYCLIA [id number] [address] STATES OF [facility] Lymphocytes (Bld) [#/Vol] Normal 1.00-4.00 [facility] Comment on above: Order Comment: Speci men Type: BLOOD SPECIMENOrdering Facility: [facility] Address: [address] [place] [address] Result Comment: Carolina Owens RN informed lab after results autoverified that she rd on the wrong patient. Lab to credit. Nurse to redraw on correct patient.Corrected result: Previously reported as 1.17 k/uL on 08/16/2021 at 4:44 AM EDT. Performed By: #### 5 7021-8 ####[facility]ORATORYCLIA [id number] [address] Lymphocytes/100 WBC (Bld) Normal [facility] Comment on above: Order Comment: Speci men Type: BLOOD SPECIMENOrdering Facility: [facility] Address: [address] [place] [address] Result Comment: Carolina Owens RN informed lab after results autoverified that she rd on the wrong patient. Lab to credit. Nurse to redraw on correct patient.Corrected result: Previously reported as 12.0 % on 08/16/2021 at 4:44 AM EDT. Performed By: #### 5 7021-8 ####[facility] LABORATORYCLIA [id number] [address] [place] MCHC (RBC) [Mass/Vol] Normal 30.5-36.0 [facility] Comment on above: Order Comment: Speci men Type: BLOOD SPECIMENOrdering Facility: [facility] Address: [address] [place] [address] Result Comment: Carolina Owens RN informed lab after results autoverified that she rd on the wrong patient. Lab to credit. Nurse to redraw on correct patient.Corrected result: Previously reported as 32.7 g/dL on 08/16/2021 at 4:44 AM EDT. Performed By: #### 5 7021-8 ####[facility]ORATORYCLIA [id number] [address] STATES OF [facility] MCV (RBC) [Entitic vol] Normal 80.0-100.0 [facility] Comment on above: Order Comment: Speci men Type: BLOOD SPECIMENOrdering Facility: [facility] Address: [address] [place] [address] Result Comment: Carolina Owens RN informed lab after results autoverified that she rd on the wrong patient. Lab to credit. Nurse to redraw on correct patient.Corrected result: Previously reported as 94.2 fL on 08/16/2021 at 4:44 AM EDT. Performed By: #### 5 7021-8 ####[facility]ORATORYCLIA [id number] [address] Monocytes (Bld) [#/Vol] Normal <0.87 [facility] Comment on above: Order Comment: Speci men Type: BLOOD SPECIMENOrdering Facility: [facility] Address: [address] [place] [address] Result Comment: Carolina Owens RN informed lab after results autoverified that she rd on the wrong patient. Lab to credit. Nurse to redraw on correct patient.Corrected result: Previously reported as 0.99 k/uL on 08/16/2021 at 4:44 AM EDT. Performed By: #### 5 7021-8 ####[facility] LABORATORYCLIA [id number] [address] [place] Monocytes/100 WBC (Bld) Normal [facility] Comment on above: Order Comment: Speci [facility] Type: BLOOD SPECIMENOrdering Facility: [facility] Address: [address] [place] [address] Result Comment: Carolina Owens RN informed lab after results autoverified that she rd on the wrong patient. Lab to credit. Nurse to redraw on correct patient.Corrected result: Previously reported as 10.2 % on 08/16/2021 at 4:44 AM EDT. Performed By: #### 5 7021-8 ####[facility] LABORATORYCLIA [id number] [place] [address] [place] Neutrophils (Bld) [#/Vol] Normal 1.45-7.50 [facility] Comment on above: Order Comment: Speci men Type: BLOOD SPECIMENOrdering Facility: [facility] Address: [address] [place] [address] Result Comment: Carolina Owens RN informed lab after results autoverified that she rd on the wrong patient. Lab to credit. Nurse to redraw on correct patient.Corrected result: Previously reported as 7.40 k/uL on 08/16/2021 at 4:44 AM EDT. Performed By: #### 5 7021-8 ####[facility]ORATORYCLIA [id number] [address] [place] Neutrophils/100 WBC (Bld) Normal [facility] Comment on above: Order Comment: Speci [facility] Type: BLOOD SPECIMENOrdering Facility: [facility] Address: [address] [place] [address] Result Comment: Carolina Owens RN informed lab after results autoverified that she rd on the wrong patient. Lab to credit. Nurse to redraw on correct patient.Corrected result: Previously reported as 75.9 % on 08/16/2021 at 4:44 AM EDT. Performed By: #### 5 7021-8 ####[facility] LABORATORYCLIA [id number] [place] [address] [place] Platelet mean volume (Bld) [Entitic vol] Normal 9.0-12.7 [facility] Comment on above: Order Comment: Speci [facility] Type: BLOOD SPECIMENOrdering Facility: [facility] Address: [address] [place] [address] Result Comment: Carolina Owens RN informed lab after results autoverified that she rd on the wrong patient. Lab to credit. Nurse to redraw on correct patient.Corrected result: Previously reported as 9.1 fL on 08/16/2021 at 4:44 AM EDT. Performed By: #### 5 7021-8 ####[facility] LABORATORYCLIA [id number] [place] [address] [place] Platelets (Bld) [#/Vol] Normal 150-400 [facility] Comment on above: Order Comment: Speci men Type: BLOOD SPECIMENOrdering Facility: [facility] Address: [address] [place] [address] Result Comment: Carolina Owens RN informed lab after results autoverified that she rd on the wrong patient. Lab to credit. Nurse to redraw on correct patient.Corrected result: Previously reported as 338 k/uL on 08/16/2021 at 4:44 AM EDT. Performed By: #### 5 7021-8 ####[facility]ORATORYCLIA [id number] [address] [place] RBC (Bld) [#/Vol] Normal 4.20-6.00 [facility] Comment on above: Order Comment: Speci men Type: BLOOD SPECIMENOrdering Facility: [facility] Address: [address] [place] [address] Result Comment: Carolina Owens RN informed lab after results autoverified that she rd on the wrong patient. Lab to credit. Nurse to redraw on correct patient.Corrected result: Previously reported as 3.64 m/uL on 08/16/2021 at 4:44 AM EDT. Performed By: #### 5 7021-8 ####[facility]ORATORYCLIA [id number] [address] [place] WBC (Bld) [#/Vol] Normal 3.70-11.00 [facility] Comment on above: Order Comment: Speci men Type: BLOOD SPECIMENOrdering Facility: [facility] Address: [address] [place] [address] Result Comment: Carolina Owens RN informed lab after results autoverified that she rd on the wrong patient. Lab to credit. Nurse to redraw on correct patient.Corrected result: Previously reported as 9.75 k/uL on 08/16/2021 at 4:44 AM EDT. Performed By: #### 5 7021-8 ####[facility]ORATORYCLIA [id number] [address] [place] CONSULT PROGon 08-16-2021 CONSULT PROG Normal [facility] Magnesium SerPl-mCncon 08-16 Magnesium [Mass/Vol] 1.8 mg/dL Normal 1.7-2.3 [facility] Comment on above: Order Comment: Speci men Type: BLOOD SPECIMENOrdering Facility: [facility] Address: [address] [place] [address] Performed By: #### 2 4321-2, 58958-3 ####[facility] LABORATORYCLIA [id number] [address] OF [facility] NURSING PROGon 08-16-2021 NURSING PROG Normal [facility] Basic metabolic 2000 panelon 08-15-2021 Anion gap [Moles/Vol] 13 mmol/L Normal 9-18 [facility] Comment on above: Order Comment: Speci men Type: BLOOD SPECIMENOrdering Facility: [facility] Address: [address] [place] [address] Performed By: #### 2 4321-2 ####[facility] LABORATORYCLIA [id number] [address] [place] Calcium [Mass/Vol] 9.0 mg/dL Normal 8.5-10.2 [facility] Comment on above: Order Comment: Speci men Type: BLOOD SPECIMENOrdering Facility: [facility] Address: [address] [place] [address] Performed By: #### 2 4321-2 ####[facility] LABORATORYCLIA [id number] [address] [place] Chloride [Moles/Vol] 95 mmol/L Low 97-105 [facility] Comment on above: Order Comment: Speci men Type: BLOOD SPECIMENOrdering Facility: [facility] Address: [address] [place] [address] Performed By: #### 2 4321-2 ####[facility] LABORATORYCLIA [id number] [address] STATES OF [facility] CO2 [Moles/Vol] 28 mmol/L Normal 22-30 [facility] Comment on above: Order Comment: Speci men Type: BLOOD SPECIMENOrdering Facility: [facility] Address: [address] [place] [address] Performed By: #### 2 4321-2 ####[facility] LABORATORYCLIA [id number] [address] STATES OF [facility] Creatinine [Mass/Vol] 0.50 mg/dL Low 0.73-1.22 [facility] Comment on above: Order Comment: Speci men Type: BLOOD SPECIMENOrdering Facility: [facility] Address: [address] [place] [address] Performed By: #### 2 4321-2 ####[facility] HE[facility] SERVICESCLIA [id number] [address] ESTIMATED GLOMERULAR FILTRATION RATE 110 mL/min/1.73m??? Normal >=60 [facility] Comment on above: Order Comment: Speci men Type: BLOOD SPECIMENOrdering Facility: [facility] Address: [address] [place] [address] Result Comment: Luzmaria mated Glomerular Filtration Rate [...] actual GFR. Performed By: #### 2 4321-2 ####[facility] LABORATORYCLIA [id number] [address] OF [facility] Glucose [Mass/Vol] 106 mg/dL High 74-99 [facility] Comment on above: Order Comment: Speci men Type: BLOOD SPECIMENOrdering Facility: [facility] Address: [address] [place] [address] Result Comment: The [place] [employer] (ADA) provides guidance for cutoff [...] Standards of Medical Care in Diabetes 2016, [place] [employer]. Diabetes Care. 2016.39(Suppl 1). Performed By: #### 2 4321-2 ####[facility] LABORATORYCLIA [id number] [address] STATES OF [facility] Potassium [Moles/Vol] 3.3 mmol/L Low 3.7-5.1 [facility] Comment on above: Order Comment: Shira feldman Type: BLOOD SPECIMENOrdering Facility: [facility] Address: [address] [place] [address] Performed By: #### 2 4321-2 ####[facility] LABORATORYCLIA [id number] [address] STATES OF [facility] Sodium [Moles/Vol] 136 mmol/L Normal 136-144 [facility] Comment on above: Order Comment: Shira feldman Type: BLOOD SPECIMENOrdering Facility: [facility] Address: [address] [place] [address] Performed By: #### 2 4321-2 ####[facility] LABORATORYCLIA [id number] [address] STATES OF [facility] Urea nitrogen [Mass/Vol] 11 mg/dL Normal 9-24 [facility] Comment on above: Order Comment: Shira feldman Type: BLOOD SPECIMENOrdering Facility: [facility] Address: [facility] [address] [address] Performed By: #### 2 4321-2 ####[facility] LABORATORYCLIA [id number] [address] [place] CASE MANAGEMon 08-15-2021 CASE MANAGEM Normal [facility] CBC W Auto Differential pane l (Bld)on 08-15-2021 Basophils (Bld) [#/Vol] 0.03 10*3/uL Normal <0.11 [facility] Comment on above: Order Comment: Speci men Type: BLOOD SPECIMENOrdering Facility: [facility] Address: [address] [place] [address] Performed By: #### 5 7021-8 ####[facility]ORATORYCLIA [id number] [address] [place] Basophils/100 WBC (Bld) 0.4 % Normal [facility] Comment on above: Order Comment: Speci men Type: BLOOD SPECIMENOrdering Facility: [facility] Address: [address] [place] [address] Performed By: #### 5 7021-8 ####[facility] LABORATORYCLIA [id number] [address] [place] Differential cell count method Nom (Bld) Auto Normal [facility] Comment on above: Order Comment: Speci men Type: BLOOD SPECIMENOrdering Facility: [facility] Address: [address] [place] [address] Performed By: #### 5 7021-8 ####[facility]ORATORYCLIA [id number] [place] [address] [place] Eosinophils (Bld) [#/Vol] 0.20 10*3/uL Normal <0.46 [facility] Comment on above: Order Comment: Speci men Type: BLOOD SPECIMENOrdering Facility: [facility] Address: [address] [place] [address] Performed By: #### 5 7021-8 ####[facility]ORATORYCLIA [id number] [address] [place] Eosinophils/100 WBC (Bld) 2.5 % Normal [facility] Comment on above: Order Comment: Speci men Type: BLOOD SPECIMENOrdering Facility: [facility] Address: [address] [place] [address] Performed By: #### 5 7021-8 ####[facility] LABORATORYCLIA [id number] [address] Erythrocyte distribution width (RBC) [Ratio] 16.7 % High 11.5-15.0 [facility] Comment on above: Order Comment: Speci men Type: BLOOD SPECIMENOrdering Facility: [facility] Address: [address] [place] [address] Performed By: #### 5 7021-8 ####[facility] LABORATORYCLIA [id number] [address] Hematocrit (Bld) [Volume fraction] 30.3 % Low 39.0-51.0 [facility] Comment on above: Order Comment: Speci men Type: BLOOD SPECIMENOrdering Facility: [facility] Address: [address] [place] [address] Performed By: #### 5 7021-8 ####[facility] LABORATORYCLIA [id number] [address] Hemoglobin (Bld) [Mass/Vol] 9.4 g/dL Low 13.0-17.0 [facility] Comment on above: Order Comment: Speci men Type: BLOOD SPECIMENOrdering Facility: [facility] Address: [address] [place] [address] Performed By: #### 5 7021-8 ####[facility] LABORATORYCLIA [id number] [address] IMMATURE GRAN % 0.4 % Normal [facility] Comment on above: Order Comment: Speci men Type: BLOOD SPECIMENOrdering Facility: [facility] Address: [address] [place] [address] Performed By: #### 5 7021-8 ####[facility] LABORATORYCLIA [id number] [address] IMMATURE GRAN ABS 0.03 k/uL Normal <0.10 [facility] Comment on above: Order Comment: Speci men Type: BLOOD SPECIMENOrdering Facility: [facility] Address: [address] [place] [address] Performed By: #### 5 7021-8 ####[facility] LABORATORYCLIA [id number] [address] Lymphocytes (Bld) [#/Vol] 1.50 10*3/uL Normal 1.00-4.00 [facility] Comment on above: Order Comment: Speci men Type: BLOOD SPECIMENOrdering Facility: [facility] Address: [address] [place] [address] Performed By: #### 5 7021-8 ####[facility]ORATORYCLIA [id number] [address] Lymphocytes/100 WBC (Bld) 18.5 % Normal [facility] Comment on above: Order Comment: Speci men Type: BLOOD SPECIMENOrdering Facility: [facility] Address: [address] [place] [address] Performed By: #### 5 7021-8 ####[facility] LABORATORYCLIA [id number] [address] MCH (RBC) [Entitic mass] 29.0 pg Normal 26.0-34.0 [facility] Comment on above: Order Comment: Speci men Type: BLOOD SPECIMENOrdering Facility: [facility] Address: [address] [place] [address] Performed By: #### 5 7021-8 ####[facility] LABORATORYCLIA [id number] [address] STATES [facility] MCHC (RBC) [Mass/Vol] 31.0 g/dL Normal 30.5-36.0 [facility] Comment on above: Order Comment: Speci men Type: BLOOD SPECIMENOrdering Facility: [facility] Address: [address] [place] [address] Performed By: #### 5 7021-8 ####[facility] LABORATORYCLIA [id number] [place] [address] [place] MCV (RBC) [Entitic vol] 93.5 fL Normal 80.0-100.0 [facility] Comment on above: Order Comment: Speci men Type: BLOOD SPECIMENOrdering Facility: [facility] Address: [address] [place] [address] Performed By: #### 5 7021-8 ####[facility] LABORATORYCLIA [id number] [place] [address] [place] Monocytes (Bld) [#/Vol] 0.47 10*3/uL Normal <0.87 [facility] Comment on above: Order Comment: Speci men Type: BLOOD SPECIMENOrdering Facility: [facility] Address: [address] [place] [address] Performed By: #### 5 7021-8 ####[facility] LABORATORYCLIA [id number] [address] [place] Monocytes/100 WBC (Bld) 5.8 % Normal [facility] Comment on above: Order Comment: Speci men Type: BLOOD SPECIMENOrdering Facility: [facility] Address: [address] [place] [address] Performed By: #### 5 7021-8 ####[facility] LABORATORYCLIA [id number] [address] [place] Neutrophils (Bld) [#/Vol] 5.87 10*3/uL Normal 1.45-7.50 [facility] Comment on above: Order Comment: Speci men Type: BLOOD SPECIMENOrdering Facility: [facility] Address: [address] [place] [address] Performed By: #### 5 7021-8 ####[facility] LABORATORYCLIA [id number] [address] [place] Neutrophils/100 WBC (Bld) 72.4 % Normal [facility] Comment on above: Order Comment: Speci men Type: BLOOD SPECIMENOrdering Facility: [facility] Address: [address] [place] [address] Performed By: #### 5 7021-8 ####[facility] LABORATORYCLIA [id number] [place] [address] [place] Nucleated RBC (Bld) [#/Vol] 10*3/uL Normal <0.01 [facility] Comment on above: Order Comment: Speci men Type: BLOOD SPECIMENOrdering Facility: [facility] Address: [address] [place] [address] Performed By: #### 5 7021-8 ####[facility] LABORATORYCLIA [id number] [address] [place] Nucleated RBC/100 WBC (Bld) [Ratio] 0.0 /100 WBC Normal [facility] Comment on above: Order Comment: Speci men Type: BLOOD SPECIMENOrdering Facility: [facility] Address: [address] [place] [address] Performed By: #### 5 7021-8 ####[facility] LABORATORYCLIA [id number] [address] Platelet mean volume (Bld) [Entitic vol] 9.4 fL Normal 9.0-12.7 [facility] Comment on above: Order Comment: Speci men Type: BLOOD SPECIMENOrdering Facility: [facility] Address: [address] [place] [address] Performed By: #### 5 7021-8 ####[facility] LABORATORYCLIA [id number] [address] [place] Platelets (Bld) [#/Vol] 290 10*3/uL Normal 150-400 [facility] Comment on above: Order Comment: Speci men Type: BLOOD SPECIMENOrdering Facility: [facility] Address: [address] [place] [address] Performed By: #### 5 7021-8 ####[facility]ORATORYCLIA [id number] [address] [place] RBC (Bld) [#/Vol] 3.24 10*6/uL Low 4.20-6.00 [facility] Comment on above: Order Comment: Speci men Type: BLOOD SPECIMENOrdering Facility: [facility] Address: [address] [place] [address] Performed By: #### 5 7021-8 ####[facility] LABORATORYCLIA [id number] [place] [address] [place] WBC (Bld) [#/Vol] 8.10 10*3/uL Normal 3.70-11.00 [facility] Comment on above: Order Comment: Speci men Type: BLOOD SPECIMENOrdering Facility: [facility] Address: [address] [place] [address] Performed By: #### 5 7021-8 ####[facility] LABORATORYCLIA [id number] [address] [place] THERAPY NTon 08-15-2021 THERAPY NT Normal [facility] THERAPY NT Normal [facility] THERAPY NT Normal [facility] Basic metabolic 2000 panelon 08-14-2021 Anion gap [Moles/Vol] 10 mmol/L Normal 9-18 [facility] Comment on above: Order Comment: Speci men Type: BLOOD SPECIMENOrdering Facility: [facility] Address: [address] [place] [address] Performed By: #### 2 4321-2 ####[facility]ORATORYCLIA [id number] [address] [place] Calcium [Mass/Vol] 8.8 mg/dL Normal 8.5-10.2 [facility] Comment on above: Order Comment: Speci men Type: BLOOD SPECIMENOrdering Facility: [facility] Address: [address] [place] [address] Performed By: #### 2 4321-2 ####[facility]ORATORYCLIA [id number] [place] [address] [place] Chloride [Moles/Vol] 92 mmol/L Low 97-105 [facility] Comment on above: Order Comment: Speci men Type: BLOOD SPECIMENOrdering Facility: [facility] Address: [address] [place], [place] [id number] Performed By: #### 2 4321-2 ####[facility] LABORATORYCLIA [id number] [place] [id number] [place] CO2 [Moles/Vol] 29 mmol/L Normal 22-30 [facility] Comment on above: Order Comment: Speci men Type: BLOOD SPECIMENOrdering Facility: [facility] Address: [address] [place] [address] Performed By: #### 2 4321-2 ####[facility]ORATORYCLIA [id number] [address] [place] Creatinine [Mass/Vol] 0.49 mg/dL Low 0.73-1.22 [facility] Comment on above: Order Comment: Speci men Type: BLOOD SPECIMENOrdering Facility: [facility] Address: [address] [place] [address] Performed By: #### 2 4321-2 ####[facility] HE[facility] SERVICESCLIA [id number] [address] ESTIMATED GLOMERULAR FILTRATION RATE 111 mL/min/1.73m??? Normal >=60 [facility] Comment on above: Order Comment: Speci men Type: BLOOD SPECIMENOrdering Facility: [facility] Address: [address] [place] [address] Result Comment: Luzmaria mated Glomerular Filtration Rate [...] actual GFR. Performed By: #### 2 4321-2 ####[facility]ORATORYCLIA [id number] [address] [place] Glucose [Mass/Vol] 104 mg/dL High 74-99 [facility] Comment on above: Order Comment: Speci men Type: BLOOD SPECIMENOrdering Facility: [facility] Address: [address] [address] Result Comment: The [place] [employer] (ADA) provides guidance for cutoff [...] Standards of Medical Care in Diabetes 2016, [place] [employer]. Diabetes Care. 2016.39(Suppl 1). Performed By: #### 2 4321-2 ####[facility]ORATORYCLIA [id number] [place] [address] [place] Potassium [Moles/Vol] 3.1 mmol/L Low 3.7-5.1 [facility] Comment on above: Order Comment: Speci men Type: BLOOD SPECIMENOrdering Facility: [facility] Address: [address] [address] Performed By: #### 2 1-2 ####[facility] LABORATORYCLIA [id number] [address] [place] Sodium [Moles/Vol] 131 mmol/L Low 136-144 [facility] Comment on above: Order Comment: Speci men Type: BLOOD SPECIMENOrdering Facility: [facility] Address: [address] [address] Performed By: #### 2 1-2 ####[facility]ORATORYCLIA [id number] [place] [address] [place] Urea nitrogen [Mass/Vol] 13 mg/dL Normal 9-24 [facility] Comment on above: Order Comment: Speci men Type: BLOOD SPECIMENOrdering Facility: [facility] Address: [address] [place] [address] Performed By: #### 2 4321-2 ####[facility]ORATORYCLIA [id number] [place] [address] [place] CBC W Auto Differential pane l (Bld)on 08-14-2021 Basophils (Bld) [#/Vol] 10*3/uL Normal <0.11 [facility] Comment on above: Order Comment: Speci men Type: BLOOD SPECIMENOrdering Facility: [facility] Address: [address] [place] [address] Performed By: #### 5 7021-8 ####[facility]ORATORYCLIA [id number] [address] [place] Basophils/100 WBC (Bld) 0.2 % Normal [facility] Comment on above: Order Comment: Speci men Type: BLOOD SPECIMENOrdering Facility: [facility] Address: [address] [place] [address] Performed By: #### 5 7021-8 ####[facility]ORATORYCLIA [id number] [address] Differential cell count method Nom (Bld) Auto Normal [facility] Comment on above: Order Comment: Speci men Type: BLOOD SPECIMENOrdering Facility: [facility] Address: [address] [place] [address] Performed By: #### 5 7021-8 ####[facility]ORATORYCLIA [id number] [place] [address] [place] Eosinophils (Bld) [#/Vol] 0.23 10*3/uL Normal <0.46 [facility] Comment on above: Order Comment: Speci men Type: BLOOD SPECIMENOrdering Facility: [facility] Address: [address] [place] [address] Performed By: #### 5 7021-8 ####[facility]ORATORYCLIA [id number] [address] Eosinophils/100 WBC (Bld) 2.7 % Normal [facility] Comment on above: Order Comment: Speci men Type: BLOOD SPECIMENOrdering Facility: [facility] Address: [address] [place] [address] Performed By: #### 5 7021-8 ####[facility]ORATORYCLIA [id number] [address] Erythrocyte distribution width (RBC) [Ratio] 16.6 % High 11.5-15.0 [facility] Comment on above: Order Comment: Speci men Type: BLOOD SPECIMENOrdering Facility: [facility] Address: [address] [place] [address] Performed By: #### 5 7021-8 ####[facility]ORATORYCLIA [id number] [address] Hematocrit (Bld) [Volume fraction] 28.6 % Low 39.0-51.0 [facility] Comment on above: Order Comment: Speci men Type: BLOOD SPECIMENOrdering Facility: [facility] Address: [address] [place] [address] Performed By: #### 5 7021-8 ####[facility]ORATORYCLIA [id number] [address] Hemoglobin (Bld) [Mass/Vol] 9.0 g/dL Low 13.0-17.0 [facility] Comment on above: Order Comment: Speci men Type: BLOOD SPECIMENOrdering Facility: [facility] Address: [address] [place] [address] Performed By: #### 5 7021-8 ####[facility]ORATORYCLIA [id number] [address] IMMATURE GRAN % 0.2 % Normal [facility] Comment on above: Order Comment: Speci men Type: BLOOD SPECIMENOrdering Facility: [facility] Address: [address] [place] [address] Performed By: #### 5 7021-8 ####[facility]ORATORYCLIA [id number] [address] IMMATURE GRAN ABS <0.03 Normal <0.10 [facility] Comment on above: Order Comment: Speci men Type: BLOOD SPECIMENOrdering Facility: [facility] Address: [address] [place] [address] Performed By: #### 5 7021-8 ####[facility]ORATORYCLIA [id number] [address] Lymphocytes (Bld) [#/Vol] 1.33 10*3/uL Normal 1.00-4.00 [facility] Comment on above: Order Comment: Speci men Type: BLOOD SPECIMENOrdering Facility: [facility] Address: [address] [place] [address] Performed By: #### 5 7021-8 ####[facility]ORATORYCLIA [id number] [address] Lymphocytes/100 WBC (Bld) 15.6 % Normal [facility] Comment on above: Order Comment: Speci men Type: BLOOD SPECIMENOrdering Facility: [facility] Address: [address] [place] [address] Performed By: #### 5 7021-8 ####[facility]ORATORYCLIA [id number] [address] MCH (RBC) [Entitic mass] 29.0 pg Normal 26.0-34.0 [facility] Comment on above: Order Comment: Speci men Type: BLOOD SPECIMENOrdering Facility: [facility] Address: [address] [place] [address] Performed By: #### 5 7021-8 ####[facility]ORATORYCLIA [id number] [address] STATES OF [facility] MCHC (RBC) [Mass/Vol] 31.5 g/dL Normal 30.5-36.0 [facility] Comment on above: Order Comment: Speci men Type: BLOOD SPECIMENOrdering Facility: [facility] Address: [address] [place] [address] Performed By: #### 5 7021-8 ####[facility]ORATORYCLIA [id number] [address] [place] MCV (RBC) [Entitic vol] 92.3 fL Normal 80.0-100.0 [facility] Comment on above: Order Comment: Speci men Type: BLOOD SPECIMENOrdering Facility: [facility] Address: [address] [place] [address] Performed By: #### 5 7021-8 ####[facility]ORATORYCLIA [id number] [place] [address] [place] Monocytes (Bld) [#/Vol] 0.44 10*3/uL Normal <0.87 [facility] Comment on above: Order Comment: Speci men Type: BLOOD SPECIMENOrdering Facility: [facility] Address: [address] [place] [address] Performed By: #### 5 7021-8 ####[facility]ORATORYCLIA [id number] [address] [place] Monocytes/100 WBC (Bld) 5.2 % Normal [facility] Comment on above: Order Comment: Speci men Type: BLOOD SPECIMENOrdering Facility: [facility] Address: [address] [place] [address] Performed By: #### 5 7021-8 ####[facility]ORATORYCLIA [id number] [address] [place] Neutrophils (Bld) [#/Vol] 6.46 10*3/uL Normal 1.45-7.50 [facility] Comment on above: Order Comment: Speci men Type: BLOOD SPECIMENOrdering Facility: [facility] Address: [address] [place] [address] Performed By: #### 5 7021-8 ####[facility]ORATORYCLIA [id number] [address] [place] Neutrophils/100 WBC (Bld) 76.1 % Normal [facility] Comment on above: Order Comment: Speci men Type: BLOOD SPECIMENOrdering Facility: [facility] Address: [address] [place] [address] Performed By: #### 5 7021-8 ####[facility]ORATORYCLIA [id number] [address] [place] Nucleated RBC (Bld) [#/Vol] 10*3/uL Normal <0.01 [facility] Comment on above: Order Comment: Speci men Type: BLOOD SPECIMENOrdering Facility: [facility] Address: [address] [place] [address] Performed By: #### 5 7021-8 ####[facility]ORATORYCLIA [id number] [address] [place] Nucleated RBC/100 WBC (Bld) [Ratio] 0.0 /100 WBC Normal [facility] Comment on above: Order Comment: Speci men Type: BLOOD SPECIMENOrdering Facility: [facility] Address: [address] [place] [address] Performed By: #### 5 7021-8 ####[facility]ORATORYCLIA [id number] [address] [place] Platelet mean volume (Bld) [Entitic vol] 9.5 fL Normal 9.0-12.7 [facility] Comment on above: Order Comment: Speci men Type: BLOOD SPECIMENOrdering Facility: [facility] Address: [address] [place] [address] Performed By: #### 5 7021-8 ####[facility]ORATORYCLIA [id number] [address] [place] Platelets (Bld) [#/Vol] 247 10*3/uL Normal 150-400 [facility] Comment on above: Order Comment: Speci men Type: BLOOD SPECIMENOrdering Facility: [facility] Address: [address] [place], [place] [address] Performed By: #### 5 7021-8 ####[facility]ORATORYCLIA [id number] [address] [place] RBC (Bld) [#/Vol] 3.10 10*6/uL Low 4.20-6.00 [facility] Comment on above: Order Comment: Speci men Type: BLOOD SPECIMENOrdering Facility: [facility] Address: [address] [place] [address] Performed By: #### 5 7021-8 ####[facility]ORATORYCLIA [id number] [place] [address] [place] WBC (Bld) [#/Vol] 8.50 10*3/uL Normal 3.70-11.00 [facility] Comment on above: Order Comment: Speci men Type: BLOOD SPECIMENOrdering Facility: [facility] Address: [address] [place] [address] Performed By: #### 5 7021-8 ####[facility] LABORATORYCLIA [id number] [place] [address] [place] CONSULTon 08-14-2021 CONSULT Normal [facility] NURSING PROGon 08-14-2021 NURSING PROG Normal [facility] CBC W Auto Differential pane l (Bld)on 08-13-2021 Basophils (Bld) [#/Vol] 10*3/uL Normal <0.11 [facility] Comment on above: Order Comment: Speci men Type: BLOOD SPECIMENOrdering Facility: [facility] Address: [address] [place] [address] Performed By: #### 5 7021-8 ####[facility]ORATORYCLIA [id number] [address] [place] Basophils/100 WBC (Bld) 0.2 % Normal [facility] Comment on above: Order Comment: Speci men Type: BLOOD SPECIMENOrdering Facility: [facility] Address: [address] [place] [address] Performed By: #### 5 7021-8 ####[facility]ORATORYCLIA [id number] [place] [address] [place] Differential cell count method Nom (Bld) Auto Normal [facility] Comment on above: Order Comment: Speci men Type: BLOOD SPECIMENOrdering Facility: [facility] Address: [address] [address] Performed By: #### 5 7021-8 ####[facility]ORATORYCLIA [id number] [address] [place] Eosinophils (Bld) [#/Vol] 0.31 10*3/uL Normal <0.46 [facility] Comment on above: Order Comment: Speci men Type: BLOOD SPECIMENOrdering Facility: [facility] Address: [address] [address] Performed By: #### 5 7021-8 ####[facility] LABORATORYCLIA [id number] [address] Eosinophils/100 WBC (Bld) 3.7 % Normal [facility] Comment on above: Order Comment: Speci men Type: BLOOD SPECIMENOrdering Facility: [facility] Address: [address] [place] [address] Performed By: #### 5 7021-8 ####[facility] LABORATORYCLIA [id number] [address] Erythrocyte distribution width (RBC) [Ratio] 16.6 % High 11.5-15.0 [facility] Comment on above: Order Comment: Speci men Type: BLOOD SPECIMENOrdering Facility: [facility] Address: [address] [place] [address] Performed By: #### 5 7021-8 ####[facility] LABORATORYCLIA [id number] [address] [place] Hematocrit (Bld) [Volume fraction] 27.5 % Low 39.0-51.0 [facility] Comment on above: Order Comment: Speci men Type: BLOOD SPECIMENOrdering Facility: [facility] Address: [facility] [place] [address] Performed By: #### 5 7021-8 ####[facility] LABORATORYCLIA [id number] [address] [place] Hemoglobin (Bld) [Mass/Vol] 8.4 g/dL Low 13.0-17.0 [facility] Comment on above: Order Comment: Speci men Type: BLOOD SPECIMENOrdering Facility: [facility] Address: [address] [place] [address] Performed By: #### 5 7021-8 ####[facility]ORATORYCLIA [id number] [address] IMMATURE GRAN % 0.5 % Normal [facility] Comment on above: Order Comment: Speci men Type: BLOOD SPECIMENOrdering Facility: [facility] Address: [address] [place] [address] Performed By: #### 5 7021-8 ####[facility] LABORATORYCLIA [id number] [address] IMMATURE GRAN ABS 0.04 k/uL Normal <0.10 [facility] Comment on above: Order Comment: Speci men Type: BLOOD SPECIMENOrdering Facility: [facility] Address: [address] [place] [address] Performed By: #### 5 7021-8 ####[facility] LABORATORYCLIA [id number] [address] Lymphocytes (Bld) [#/Vol] 1.55 10*3/uL Normal 1.00-4.00 [facility] Comment on above: Order Comment: Speci men Type: BLOOD SPECIMENOrdering Facility: [facility] Address: [address] [place] [address] Performed By: #### 5 7021-8 ####[facility] LABORATORYCLIA [id number] [address] Lymphocytes/100 WBC (Bld) 18.7 % Normal [facility] Comment on above: Order Comment: Speci men Type: BLOOD SPECIMENOrdering Facility: [facility] Address: [address] [place] [address] Performed By: #### 5 7021-8 ####[facility] LABORATORYCLIA [id number] [place] [address] [place] MCH (RBC) [Entitic mass] 28.9 pg Normal 26.0-34.0 [facility] Comment on above: Order Comment: Speci men Type: BLOOD SPECIMENOrdering Facility: [facility] Address: [address] [place] [address] Performed By: #### 5 7021-8 ####[facility] LABORATORYCLIA [id number] [address] [place] MCHC (RBC) [Mass/Vol] 30.5 g/dL Normal 30.5-36.0 [facility] Comment on above: Order Comment: Speci men Type: BLOOD SPECIMENOrdering Facility: [facility] Address: [address] [place] [address] Performed By: #### 5 7021-8 ####[facility] LABORATORYCLIA [id number] [address] OF [facility] MCV (RBC) [Entitic vol] 94.5 fL Normal 80.0-100.0 [facility] Comment on above: Order Comment: Speci men Type: BLOOD SPECIMENOrdering Facility: [facility] Address: [address] [place] [address] Performed By: #### 5 7021-8 ####[facility] LABORATORYCLIA [id number] [address] Monocytes (Bld) [#/Vol] 0.47 10*3/uL Normal <0.87 [facility] Comment on above: Order Comment: Speci men Type: BLOOD SPECIMENOrdering Facility: [facility] Address: [address] [place] [address] Performed By: #### 5 7021-8 ####[facility] LABORATORYCLIA [id number] [address] Monocytes/100 WBC (Bld) 5.7 % Normal [facility] Comment on above: Order Comment: Speci men Type: BLOOD SPECIMENOrdering Facility: [facility] Address: [address] [place] [address] Performed By: #### 5 7021-8 ####[facility]ORATORYCLIA [id number] [address] [place] Neutrophils (Bld) [#/Vol] 5.92 10*3/uL Normal 1.45-7.50 [facility] Comment on above: Order Comment: Speci men Type: BLOOD SPECIMENOrdering Facility: [facility] Address: [address] [place] [address] Performed By: #### 5 7021-8 ####[facility] LABORATORYCLIA [id number] [address] STATES [facility] Neutrophils/100 WBC (Bld) 71.2 % Normal [facility] Comment on above: Order Comment: Speci men Type: BLOOD SPECIMENOrdering Facility: [facility] Address: [address] [place] [address] Performed By: #### 5 7021-8 ####[facility] LABORATORYCLIA [id number] [address] Nucleated RBC (Bld) [#/Vol] 10*3/uL Normal <0.01 [facility] Comment on above: Order Comment: Speci men Type: BLOOD SPECIMENOrdering Facility: [facility] Address: [address] [place] [address] Performed By: #### 5 7021-8 ####[facility] LABORATORYCLIA [id number] [address] Nucleated RBC/100 WBC (Bld) [Ratio] 0.0 /100 WBC Normal [facility] Comment on above: Order Comment: Speci men Type: BLOOD SPECIMENOrdering Facility: [facility] Address: [address] [place] [address] Performed By: #### 5 7021-8 ####[facility] LABORATORYCLIA [id number] [address] [place] Platelet mean volume (Bld) [Entitic vol] 9.9 fL Normal 9.0-12.7 [facility] Comment on above: Order Comment: Speci men Type: BLOOD SPECIMENOrdering Facility: [facility] Address: [address] [place] [address] Performed By: #### 5 7021-8 ####[facility] LABORATORYCLIA [id number] [address] Platelets (Bld) [#/Vol] 203 10*3/uL Normal 150-400 [facility] Comment on above: Order Comment: Speci men Type: BLOOD SPECIMENOrdering Facility: [facility] Address: [address] [place] [address] Performed By: #### 5 7021-8 ####[facility] LABORATORYCLIA [id number] [address] STATES OF [facility] RBC (Bld) [#/Vol] 2.91 10*6/uL Low 4.20-6.00 [facility] Comment on above: Order Comment: Speci men Type: BLOOD SPECIMENOrdering Facility: [facility] Address: [address] [place] [address] Performed By: #### 5 7021-8 ####[facility] LABORATORYCLIA [id number] [address] WBC (Bld) [#/Vol] 8.31 10*3/uL Normal 3.70-11.00 [facility] Comment on above: Order Comment: Speci men Type: BLOOD SPECIMENOrdering Facility: [facility] Address: [address] [place] [address] Performed By: #### 5 7021-8 ####[facility] LABORATORYCLIA [id number] [address] aPTT PPPon 08-13-2021 aPTT Coag (PPP) [Time] 69.7 s High 23.0-32.4 [facility] Comment on above: Order Comment: Speci men Type: BLOOD SPECIMENOrdering Facility: [facility] Address: [address] [place] [address] Performed By: #### 1 4979-9 ####[facility] HE[facility] SERVICESCLIA [id number] [place] [address] [place] aPTT Coag (PPP) [Time] 70.6 s High 23.0-32.4 [facility] Comment on above: Order Comment: Speci men Type: BLOOD SPECIMENOrdering Facility: [facility] Address: [address] [place] [address] Performed By: #### 1 4979-9 ####[facility] LABORATORYCLIA [id number] [place] [address] [place] ALLIED HEALTHon 08-12-2021 ALLIED HEALTH Normal [facility] ALLIED HEALTH Normal [facility] Basic metabolic 2000 panelon 08-12-2021 Anion gap [Moles/Vol] 7 mmol/L Low 9-18 [facility] Comment on above: Order Comment: Speci men Type: BLOOD SPECIMENOrdering Facility: [facility] Address: [address] [place] [address] Performed By: #### 2 4321-2, , 2776-05 ####[facility] LABORATORYCLIA [id number] [place] [address] [place] Calcium [Mass/Vol] 8.8 mg/dL Normal 8.5-10.2 [facility] Comment on above: Order Comment: Speci men Type: BLOOD SPECIMENOrdering Facility: [facility] Address: [address] [place] [address] Performed By: #### 2 4321-2, , 2776-05 ####[facility] LABORATORYCLIA [id number] [place] [address] [place] Chloride [Moles/Vol] 96 mmol/L Low 97-105 [facility] Comment on above: Order Comment: Speci men Type: BLOOD SPECIMENOrdering Facility: [facility] Address: [address] [place] [address] Performed By: #### 2 4321-2, , 2776-05 ####[facility] LABORATORYCLIA [id number] [place] [address] [place] CO2 [Moles/Vol] 32 mmol/L High 22-30 [facility] Comment on above: Order Comment: Speci men Type: BLOOD SPECIMENOrdering Facility: [facility] Address: [address] [place] [address] Performed By: #### 2 4321-2, , 2776-05 ####[facility] LABORATORYCLIA [id number] [address] STATES OF [facility] Creatinine [Mass/Vol] 0.52 mg/dL Low 0.73-1.22 [facility] Comment on above: Order Comment: Speci men Type: BLOOD SPECIMENOrdering Facility: [facility] Address: [address] [place] [address] Performed By: #### 2 4321-2, , 2776-05 ####[facility] [id number] [address] ESTIMATED GLOMERULAR FILTRATION RATE 109 mL/min/1.73m??? Normal >=60 [facility] Comment on above: Order Comment: Speccara men Type: BLOOD SPECIMENOrdering Facility: [facility] Address: [address] [place] [address] Result Comment: Luzmaria mated Glomerular Filtration Rate [...] Performed By: #### 2 4321-2, , 2776-05 ####[facility] LABORATORYCLIA [id number] [address] [place] Glucose [Mass/Vol] 119 mg/dL High 74-99 [facility] Comment on above: Order Comment: Speci men Type: BLOOD SPECIMENOrdering Facility: [facility] Address: [address] [place], [place] [address] Result Comment: The [place] [employer] (ADA) provides guidance for cutoff [...] Standards of Medical Care in Diabetes 2016, [place] [employer]. Diabetes Care. 2016.39(Suppl 1). Performed By: #### 2 4321-2, , 2776-05 ####[facility] LABORATORYCLIA [id number] [place] [address] [place] Potassium [Moles/Vol] 3.7 mmol/L Normal 3.7-5.1 [facility] Comment on above: Order Comment: Speci men Type: BLOOD SPECIMENOrdering Facility: [facility] Address: [address] Performed By: #### 2 4321-2, , 2776-05 ####[facility] HE[facility] SERVICESCLIA [id number] [place] [address] [place] Sodium [Moles/Vol] 135 mmol/L Low 136-144 [facility] Comment on above: Order Comment: Speci men Type: BLOOD SPECIMENOrdering Facility: [facility] Address: [address] [id number] Performed By: #### 2 4321-2, , 2776-05 ####[facility] LABORATORYCLIA [id number] [place] [address] [place] Urea nitrogen [Mass/Vol] 20 mg/dL Normal 9-24 [facility] Comment on above: Order Comment: Speci men Type: BLOOD SPECIMENOrdering Facility: [facility] Address: [address] [id number] Performed By: #### 2 4321-2, 99558-7, 2777-1 ####[facility] LABORATORYCLIA [id number] [address] [place] CASE MANAGEMon 08-12-2021 CASE MANAGEM Normal [facility] CBC W Auto Differential pane l (Bld)on 08-12-2021 Basophils (Bld) [#/Vol] 0.04 10*3/uL Normal <0.11 [facility] Comment on above: Order Comment: Speci men Type: BLOOD SPECIMENOrdering Facility: [facility] Address: [address] [place] [address] Performed By: #### 5 7021-8 ####[facility] LABORATORYCLIA [id number] [address] [place] Basophils/100 WBC (Bld) 0.5 % Normal [facility] Comment on above: Order Comment: Speci men Type: BLOOD SPECIMENOrdering Facility: [facility] Address: [address] [address] Performed By: #### 5 7021-8 ####[facility] LABORATORYCLIA [id number] [address] [place] Differential cell count method Nom (Bld) Auto Normal [facility] Comment on above: Order Comment: Speci men Type: BLOOD SPECIMENOrdering Facility: [facility] Address: [address] [address] Performed By: #### 5 7021-8 ####[facility] LABORATORYCLIA [id number] [address] [place] Eosinophils (Bld) [#/Vol] 0.19 10*3/uL Normal <0.46 [facility] Comment on above: Order Comment: Speci men Type: BLOOD SPECIMENOrdering Facility: [facility] Address: [address] [address] Performed By: #### 5 7021-8 ####[facility]ORATORYCLIA [id number] [address] Eosinophils/100 WBC (Bld) 2.3 % Normal [facility] Comment on above: Order Comment: Speci men Type: BLOOD SPECIMENOrdering Facility: [facility] Address: [address] [place] [address] Performed By: #### 5 7021-8 ####[facility] LABORATORYCLIA [id number] [address] Erythrocyte distribution width (RBC) [Ratio] 17.1 % High 11.5-15.0 [facility] Comment on above: Order Comment: Speci men Type: BLOOD SPECIMENOrdering Facility: [facility] Address: [address] [place] [address] Performed By: #### 5 7021-8 ####[facility] LABORATORYCLIA [id number] [address] Hematocrit (Bld) [Volume fraction] 25.3 % Low 39.0-51.0 [facility] Comment on above: Order Comment: Speci men Type: BLOOD SPECIMENOrdering Facility: [facility] Address: [address] [place] [address] Performed By: #### 5 7021-8 ####[facility] LABORATORYCLIA [id number] [address] [place] Hemoglobin (Bld) [Mass/Vol] 7.9 g/dL Low 13.0-17.0 [facility] Comment on above: Order Comment: Speci men Type: BLOOD SPECIMENOrdering Facility: [facility] Address: [address] [place] [address] Performed By: #### 5 7021-8 ####[facility] LABORATORYCLIA [id number] [address] IMMATURE GRAN % 0.5 % Normal [facility] Comment on above: Order Comment: Speci men Type: BLOOD SPECIMENOrdering Facility: [facility] Address: [address] [place] [address] Performed By: #### 5 7021-8 ####[facility] LABORATORYCLIA [id number] [address] IMMATURE GRAN ABS 0.04 k/uL Normal <0.10 [facility] Comment on above: Order Comment: Speci men Type: BLOOD SPECIMENOrdering Facility: [facility] Address: [address] [place] [address] Performed By: #### 5 7021-8 ####[facility] LABORATORYCLIA [id number] [address] Lymphocytes (Bld) [#/Vol] 1.69 10*3/uL Normal 1.00-4.00 [facility] Comment on above: Order Comment: Speci men Type: BLOOD SPECIMENOrdering Facility: [facility] Address: [address] [place] [address] Performed By: #### 5 7021-8 ####[facility] LABORATORYCLIA [id number] [address] Lymphocytes/100 WBC (Bld) 20.1 % Normal [facility] Comment on above: Order Comment: Speci men Type: BLOOD SPECIMENOrdering Facility: [facility] Address: [address] [place] [address] Performed By: #### 5 7021-8 ####[facility] LABORATORYCLIA [id number] [address] MCH (RBC) [Entitic mass] 28.5 pg Normal 26.0-34.0 [facility] Comment on above: Order Comment: Speci men Type: BLOOD SPECIMENOrdering Facility: [facility] Address: [address] [place] [address] Performed By: #### 5 7021-8 ####[facility] LABORATORYCLIA [id number] [address] MCHC (RBC) [Mass/Vol] 31.2 g/dL Normal 30.5-36.0 [facility] Comment on above: Order Comment: Speci men Type: BLOOD SPECIMENOrdering Facility: [facility] Address: [address] [place] [address] Performed By: #### 5 7021-8 ####[facility] LABORATORYCLIA [id number] [address] OF [facility] MCV (RBC) [Entitic vol] 91.3 fL Normal 80.0-100.0 [facility] Comment on above: Order Comment: Speci men Type: BLOOD SPECIMENOrdering Facility: [facility] Address: [address] [place] [address] Performed By: #### 5 7021-8 ####[facility] LABORATORYCLIA [id number] [address] [place] Monocytes (Bld) [#/Vol] 0.53 10*3/uL Normal <0.87 [facility] Comment on above: Order Comment: Speci men Type: BLOOD SPECIMENOrdering Facility: [facility] Address: [address] [place] [address] Performed By: #### 5 7021-8 ####[facility] LABORATORYCLIA [id number] [address] STATES [facility] Monocytes/100 WBC (Bld) 6.3 % Normal [facility] Comment on above: Order Comment: Speci men Type: BLOOD SPECIMENOrdering Facility: [facility] Address: [address] [place] [address] Performed By: #### 5 7021-8 ####[facility] LABORATORYCLIA [id number] [address] [place] Neutrophils (Bld) [#/Vol] 5.90 10*3/uL Normal 1.45-7.50 [facility] Comment on above: Order Comment: Speci men Type: BLOOD SPECIMENOrdering Facility: [facility] Address: [address] [place] [address] Performed By: #### 5 7021-8 ####[facility] LABORATORYCLIA [id number] [address] [place] Neutrophils/100 WBC (Bld) 70.3 % Normal [facility] Comment on above: Order Comment: Speci men Type: BLOOD SPECIMENOrdering Facility: [facility] Address: [facility] [address] Performed By: #### 5 7021-8 ####[facility] LABORATORYCLIA [id number] [place] [address] [place] Nucleated RBC (Bld) [#/Vol] 10*3/uL Normal <0.01 [facility] Comment on above: Order Comment: Speci men Type: BLOOD SPECIMENOrdering Facility: [facility] Address: [address] [place] [address] Performed By: #### 5 7021-8 ####[facility] LABORATORYCLIA [id number] [address] [place] Nucleated RBC/100 WBC (Bld) [Ratio] 0.0 /100 WBC Normal [facility] Comment on above: Order Comment: Speci men Type: BLOOD SPECIMENOrdering Facility: [facility] Address: [address] [place] [address] Performed By: #### 5 7021-8 ####[facility] LABORATORYCLIA [id number] [address] STATES [place] Platelet mean volume (Bld) [Entitic vol] 9.8 fL Normal 9.0-12.7 [facility] Comment on above: Order Comment: Speci men Type: BLOOD SPECIMENOrdering Facility: [facility] Address: [address] Performed By: #### 5 7021-8 ####[facility] LABORATORYCLIA [id number] [place] [address] [place] Platelets (Bld) [#/Vol] 164 10*3/uL Normal 150-400 [facility] Comment on above: Order Comment: Speci men Type: BLOOD SPECIMENOrdering Facility: [facility] Address: [address] [place], [place] [address] Performed By: #### 5 7021-8 ####[facility] LABORATORYCLIA [id number] [place] [address] [place] RBC (Bld) [#/Vol] 2.77 10*6/uL Low 4.20-6.00 [facility] Comment on above: Order Comment: Speci men Type: BLOOD SPECIMENOrdering Facility: [facility] Address: [address] [place] [address] Performed By: #### 5 7021-8 ####[facility] LABORATORYCLIA [id number] [address] STATES OF [facility] WBC (Bld) [#/Vol] 8.39 10*3/uL Normal 3.70-11.00 [facility] Comment on above: Order Comment: Speci men Type: BLOOD SPECIMENOrdering Facility: [facility] Address: [address] [place] [address] Performed By: #### 5 7021-8 ####[facility] LABORATORYCLIA [id number] [address] [place] CT BRAIN WO IVCONon 08-13-[address] BRAIN WO IVCON Normal [facility] CT BRAIN WO IVCON Normal [facility] Magnesium SerPl-mCncon 08-12 Magnesium [Mass/Vol] 2.0 mg/dL Normal 1.7-2.3 [facility] Comment on above: Order Comment: Speci men Type: BLOOD SPECIMENOrdering Facility: [facility] Address: [address] [place] [address] Performed By: #### 2 4321-2, 73210-5, 2777-1 ####[facility] LABORATORYCLIA [id number] [address] Phosphate SerPl-mCncon 08-12 Phosphate [Mass/Vol] 2.9 mg/dL Normal 2.7-4.8 [facility] Comment on above: Order Comment: Speci men Type: BLOOD SPECIMENOrdering Facility: [facility] Address: [address] [place] [address] Performed By: #### 2 4321-2, 99397-6, 2777-1 ####[facility] LABORATORYCLIA [id number] [address] THERAPY NTon 08-12-2021 THERAPY NT Normal [facility] THERAPY NT Normal [facility] aPTT PPPon 08-12-2021 aPTT Coag (PPP) [Time] 94.2 s High 23.0-32.4 [facility] Comment on above: Order Comment: Speci men Type: BLOOD SPECIMENOrdering Facility: [facility] Address: [address] [place] [address] Performed By: #### 1 4979-9 ####[facility] LABORATORYCLIA [id number] [address] aPTT Coag (PPP) [Time] 84.4 s High 23.0-32.4 [facility] Comment on above: Order Comment: Speci men Type: BLOOD SPECIMENOrdering Facility: [facility] Address: [address] [place] [address] Performed By: #### 1 4979-9 ####[facility] LABORATORYCLIA [id number] [address] aPTT Coag (PPP) [Time] 71.3 s High 23.0-32.4 [facility] Comment on above: Order Comment: Speci men Type: BLOOD SPECIMENOrdering Facility: [facility] Address: [address] [place] [address] Performed By: #### 1 4979-9 ####[facility] LABORATORYCLIA [id number] [address] ALLIED HEALTHon 08-11-2021 ALLIED HEALTH Normal [facility] CBC W Auto Differential pane l (Bld)on 08-11-2021 Basophils (Bld) [#/Vol] 10*3/uL Normal <0.11 [facility] Comment on above: Order Comment: Speci men Type: BLOOD SPECIMENOrdering Facility: [facility] Address: [address] [place] [address] Performed By: #### 5 7021-8 ####[facility]ORATORYCLIA [id number] [address] Basophils/100 WBC (Bld) 0.2 % Normal [facility] Comment on above: Order Comment: Speci men Type: BLOOD SPECIMENOrdering Facility: [facility] Address: [address] [place] [address] Performed By: #### 5 7021-8 ####[facility] LABORATORYCLIA [id number] [address] [place] Differential cell count method Nom (Bld) Auto Normal [facility] Comment on above: Order Comment: Speci men Type: BLOOD SPECIMENOrdering Facility: [facility] Address: [address] [place] [address] Performed By: #### 5 7021-8 ####[facility] LABORATORYCLIA [id number] [address] [place] Eosinophils (Bld) [#/Vol] 0.16 10*3/uL Normal <0.46 [facility] Comment on above: Order Comment: Speci men Type: BLOOD SPECIMENOrdering Facility: [facility] Address: [address] [place] [address] Performed By: #### 5 7021-8 ####[facility] LABORATORYCLIA [id number] [address] [place] Eosinophils/100 WBC (Bld) 1.8 % Normal [facility] Comment on above: Order Comment: Speci men Type: BLOOD SPECIMENOrdering Facility: [facility] Address: [address] [place] [address] Performed By: #### 5 7021-8 ####[facility] LABORATORYCLIA [id number] [address] [place] [place] Erythrocyte distribution width (RBC) [Ratio] 17.3 % High 11.5-15.0 [facility] Comment on above: Order Comment: Speci men Type: BLOOD SPECIMENOrdering Facility: [facility] Address: [address] [place] [address] Performed By: #### 5 7021-8 ####[facility] LABORATORYCLIA [id number] [address] Hematocrit (Bld) [Volume fraction] 26.6 % Low 39.0-51.0 [facility] Comment on above: Order Comment: Speci men Type: BLOOD SPECIMENOrdering Facility: [facility] Address: [address] [place] [address] Performed By: #### 5 7021-8 ####[facility] LABORATORYCLIA [id number] [address] Hemoglobin (Bld) [Mass/Vol] 8.2 g/dL Low 13.0-17.0 [facility] Comment on above: Order Comment: Speci men Type: BLOOD SPECIMENOrdering Facility: [facility] Address: [address] [place] [address] Performed By: #### 5 7021-8 ####[facility] LABORATORYCLIA [id number] [address] IMMATURE GRAN % 0.6 % Normal [facility] Comment on above: Order Comment: Speci men Type: BLOOD SPECIMENOrdering Facility: [facility] Address: [address] [place] [address] Performed By: #### 5 7021-8 ####[facility] LABORATORYCLIA [id number] [address] IMMATURE GRAN ABS 0.05 k/uL Normal <0.10 [facility] Comment on above: Order Comment: Speci men Type: BLOOD SPECIMENOrdering Facility: [facility] Address: [address] [place] [address] Performed By: #### 5 7021-8 ####[facility] LABORATORYCLIA [id number] [address] Lymphocytes (Bld) [#/Vol] 1.40 10*3/uL Normal 1.00-4.00 [facility] Comment on above: Order Comment: Speci men Type: BLOOD SPECIMENOrdering Facility: [facility] Address: [address] [place] [address] Performed By: #### 5 7021-8 ####[facility] LABORATORYCLIA [id number] [address] Lymphocytes/100 WBC (Bld) 15.8 % Normal [facility] Comment on above: Order Comment: Speci men Type: BLOOD SPECIMENOrdering Facility: [facility] Address: [address] [place] [address] Performed By: #### 5 7021-8 ####[facility] LABORATORYCLIA [id number] [address] STATES OF [facility] MCH (RBC) [Entitic mass] 28.4 pg Normal 26.0-34.0 [facility] Comment on above: Order Comment: Speci men Type: BLOOD SPECIMENOrdering Facility: [facility] Address: [address] [place] [address] Performed By: #### 5 7021-8 ####[facility] LABORATORYCLIA [id number] [address] STATES [facility] MCHC (RBC) [Mass/Vol] 30.8 g/dL Normal 30.5-36.0 [facility] Comment on above: Order Comment: Speci men Type: BLOOD SPECIMENOrdering Facility: [facility] Address: [address] [place] [address] Performed By: #### 5 7021-8 ####[facility] LABORATORYCLIA [id number] [address] STATES [facility] MCV (RBC) [Entitic vol] 92.0 fL Normal 80.0-100.0 [facility] Comment on above: Order Comment: Speci men Type: BLOOD SPECIMENOrdering Facility: [facility] Address: [address] [place] [address] Performed By: #### 5 7021-8 ####[facility]ORATORYCLIA [id number] [place] [address] [place] Monocytes (Bld) [#/Vol] 0.61 10*3/uL Normal <0.87 [facility] Comment on above: Order Comment: Speci men Type: BLOOD SPECIMENOrdering Facility: [facility] Address: [address] [place] [address] Performed By: #### 5 7021-8 ####[facility]ORATORYCLIA [id number] [address] STATES OF [place] Monocytes/100 WBC (Bld) 6.9 % Normal [facility] Comment on above: Order Comment: Speci men Type: BLOOD SPECIMENOrdering Facility: [facility] Address: [address] [place] [address] Performed By: #### 5 7021-8 ####[facility] LABORATORYCLIA [id number] [address] STATES OF [place] Neutrophils (Bld) [#/Vol] 6.62 10*3/uL Normal 1.45-7.50 [facility] Comment on above: Order Comment: Speci men Type: BLOOD SPECIMENOrdering Facility: [facility] Address: [address] [place] [address] Performed By: #### 5 7021-8 ####[facility] LABORATORYCLIA [id number] [address] STATES OF [place] Neutrophils/100 WBC (Bld) 74.7 % Normal [facility] Comment on above: Order Comment: Speci men Type: BLOOD SPECIMENOrdering Facility: [facility] Address: [address] [place] [address] Performed By: #### 5 7021-8 ####[facility]ORATORYCLIA [id number] [place] [address] [place] Nucleated RBC (Bld) [#/Vol] 10*3/uL Normal <0.01 [facility] Comment on above: Order Comment: Speci men Type: BLOOD SPECIMENOrdering Facility: [facility] Address: [address] [place] [address] Performed By: #### 5 7021-8 ####[facility] LABORATORYCLIA [id number] [address] STATES OF [place] Nucleated RBC/100 WBC (Bld) [Ratio] 0.0 /100 WBC Normal [facility] Comment on above: Order Comment: Speci men Type: BLOOD SPECIMENOrdering Facility: [facility] Address: [address] [place] [address] Performed By: #### 5 7021-8 ####[facility] LABORATORYCLIA [id number] [address] STATES OF [place] Platelet mean volume (Bld) [Entitic vol] 9.8 fL Normal 9.0-12.7 [facility] Comment on above: Order Comment: Speci men Type: BLOOD SPECIMENOrdering Facility: [facility] Address: [address] [place] [address] Performed By: #### 5 7021-8 ####[facility] LABORATORYCLIA [id number] [address] STATES OF [place] Platelets (Bld) [#/Vol] 157 10*3/uL Normal 150-400 [facility] Comment on above: Order Comment: Speci men Type: BLOOD SPECIMENOrdering Facility: [facility] Address: [address] [place] [address] Performed By: #### 5 7021-8 ####[facility] LABORATORYCLIA [id number] [address] [place] RBC (Bld) [#/Vol] 2.89 10*6/uL Low 4.20-6.00 [facility] Comment on above: Order Comment: Speci men Type: BLOOD SPECIMENOrdering Facility: [facility] Address: [address] [place] [address] Performed By: #### 5 7021-8 ####[facility] LABORATORYCLIA [id number] [address] OF [place] WBC (Bld) [#/Vol] 8.86 10*3/uL Normal 3.70-11.00 [facility] Comment on above: Order Comment: Speci men Type: BLOOD SPECIMENOrdering Facility: [facility] Address: [address] [place] [address] Performed By: #### 5 7021-8 ####[facility] LABORATORYCLIA [id number] [address] CBC panel Auto (Bld)on 08-11 Erythrocyte distribution width (RBC) [Ratio] 17.2 % High 11.5-15.0 [facility] Comment on above: Order Comment: Speci men Type: BLOOD SPECIMENOrdering Facility: [facility] Address: [address] [place] [address] Performed By: #### 5 8410-2 ####[facility] LABORATORYCLIA [id number] [address] Hematocrit (Bld) [Volume fraction] 27.0 % Low 39.0-51.0 [facility] Comment on above: Order Comment: Speci men Type: BLOOD SPECIMENOrdering Facility: [facility] Address: [address] [place] [address] Performed By: #### 5 8410-2 ####[facility] LABORATORYCLIA [id number] [address] Hemoglobin (Bld) [Mass/Vol] 8.3 g/dL Low 13.0-17.0 [facility] Comment on above: Order Comment: Speci men Type: BLOOD SPECIMENOrdering Facility: [facility] Address: [address] [place] [address] Performed By: #### 5 8410-2 ####[facility] LABORATORYCLIA [id number] [address] MCH (RBC) [Entitic mass] 28.7 pg Normal 26.0-34.0 [facility] Comment on above: Order Comment: Speci men Type: BLOOD SPECIMENOrdering Facility: [facility] Address: [address] [place] [address] Performed By: #### 5 8410-2 ####[facility] LABORATORYCLIA [id number] [address] MCHC (RBC) [Mass/Vol] 30.7 g/dL Normal 30.5-36.0 [facility] Comment on above: Order Comment: Speci men Type: BLOOD SPECIMENOrdering Facility: [facility] Address: [address] [place] [address] Performed By: #### 5 8410-2 ####[facility] LABORATORYCLIA [id number] [address] OF [facility] MCV (RBC) [Entitic vol] 93.4 fL Normal 80.0-100.0 [facility] Comment on above: Order Comment: Speci men Type: BLOOD SPECIMENOrdering Facility: [facility] Address: [address] [place] [address] Performed By: #### 5 8410-2 ####[facility] LABORATORYCLIA [id number] [address] OF [facility] Nucleated RBC (Bld) [#/Vol] 10*3/uL Normal <0.01 [facility] Comment on above: Order Comment: Speci men Type: BLOOD SPECIMENOrdering Facility: [facility] Address: [address] [place] [address] Performed By: #### 5 8410-2 ####[facility] LABORATORYCLIA [id number] [address] Platelet mean volume (Bld) [Entitic vol] 9.8 fL Normal 9.0-12.7 [facility] Comment on above: Order Comment: Speci men Type: BLOOD SPECIMENOrdering Facility: [facility] Address: [address] [place] [address] Performed By: #### 5 8410-2 ####[facility] LABORATORYCLIA [id number] [address] [place] Platelets (Bld) [#/Vol] 169 10*3/uL Normal 150-400 [facility] Comment on above: Order Comment: Speci men Type: BLOOD SPECIMENOrdering Facility: [facility] Address: [address] [place] [address] Performed By: #### 5 8410-2 ####[facility] LABORATORYCLIA [id number] [place] [address] [place] RBC (Bld) [#/Vol] 2.89 10*6/uL Low 4.20-6.00 [facility] Comment on above: Order Comment: Speci men Type: BLOOD SPECIMENOrdering Facility: [facility] Address: [address] [place] [address] Performed By: #### 5 8410-2 ####[facility] LABORATORYCLIA [id number] [address] STATES OF [facility] WBC (Bld) [#/Vol] 9.03 10*3/uL Normal 3.70-11.00 [facility] Comment on above: Order Comment: Speci men Type: BLOOD SPECIMENOrdering Facility: [facility] Address: [address] [place] [address] Performed By: #### 5 8410-2 ####[facility] LABORATORYCLIA [id number] [address] OF [place] CT BRAIN WO IVCONon 08-12-19 CT BRAIN WO IVCON Normal [facility] PT panel Coag (PPP)on 2021 INR Coag (PPP) [Relative time] 1.0 {INR} Normal 0.9-1.3 [facility] Comment on above: Order Comment: Speci men Type: BLOOD SPECIMENOrdering Facility: [facility] Address: [address] [place] [address] Result Comment: Yris min K Antagonist (VKA) Therapeutic Range: INR 2 to 3 (Target INR of 2.5)Note: For patients treated with VKA drugs, such as warfarin, the [place] [employer] 2012 Guideline recommends [...] al. Chest 2012, 141:7S-47SNishimura RA, et al. [facility] 2017, 70: 252-289 Performed By: #### 1 4979-9, 93066-8 ####[facility] LABORATORYCLIA [id number] [address] PT Coag (PPP) [Time] 11.4 s Normal 9.7-13.0 [facility] Comment on above: Order Comment: Speccara feldman Type: BLOOD SPECIMENOrdering Facility: [facility] Address: [address] [address] Performed By: #### 1 4979-9, 00388-8 ####[facility] HE[facility] SERVICESCLIA [id number] [address] THERAPY NTon 08-11-2021 THERAPY NT Normal [facility] US DVT LOWER BILon 2 US DVT LOWER RAINER Normal [facility] US DVT UPPER BILon 2 US DVT UPPER RAINER Normal [facility] aPTT PPPon 08-11-2021 aPTT Coag (PPP) [Time] 26.9 s Normal 23.0-32.4 [facility] Comment on above: Order Comment: Shira feldman Type: BLOOD SPECIMENOrdering Facility: [facility] Address: [address] [address] Performed By: #### 1 4979-9, 69903-8 ####[facility] LABORATORYCLIA [id number] [address] [place] Basic metabolic 2000 panelon 08-10-2021 Anion gap [Moles/Vol] 11 mmol/L Normal 9-18 [facility] Comment on above: Order Comment: Speci men Type: BLOOD SPECIMENOrdering Facility: [facility] Address: [address] [place] [address] Performed By: #### 2 4321-2 ####[facility] LABORATORYCLIA [id number] [place] [address] [place] Calcium [Mass/Vol] 8.7 mg/dL Normal 8.5-10.2 [facility] Comment on above: Order Comment: Speci men Type: BLOOD SPECIMENOrdering Facility: [facility] Address: [address] [place] [address] Performed By: #### 2 4321-2 ####[facility] LABORATORYCLIA [id number] [place] [address] [place] Chloride [Moles/Vol] 98 mmol/L Normal 97-105 [facility] Comment on above: Order Comment: Speci men Type: BLOOD SPECIMENOrdering Facility: [facility] Address: [address] [place] [address] Performed By: #### 2 4321-2 ####[facility] LABORATORYCLIA [id number] [place] [address] [place] CO2 [Moles/Vol] 28 mmol/L Normal 22-30 [facility] Comment on above: Order Comment: Speci men Type: BLOOD SPECIMENOrdering Facility: [facility] Address: [address] [place] [address] Performed By: #### 2 4321-2 ####[facility] LABORATORYCLIA [id number] [place] [address] [place] Creatinine [Mass/Vol] 0.59 mg/dL Low 0.73-1.22 [facility] Comment on above: Order Comment: Speci men Type: BLOOD SPECIMENOrdering Facility: [facility] Address: [address] [place] [address] Performed By: #### 2 4321-2 ####[facility]ORATORYCLIA [id number] [place] [address] [place] ESTIMATED GLOMERULAR FILTRATION RATE 105 mL/min/1.73m??? Normal >=60 [facility] Comment on above: Order Comment: Shira feldman Type: BLOOD SPECIMENOrdering Facility: [facility] Address: [address] [place] [address] Result Comment: Luzmaria mated Glomerular Filtration Rate [...] GFR. Performed By: #### 2 4321-2 ####[facility] [id number] [place] [address] [place] Glucose [Mass/Vol] 118 mg/dL High 74-99 [facility] Comment on above: Order Comment: Shira feldman Type: BLOOD SPECIMENOrdering Facility: [facility] Address: [address] [place] [address] Result Comment: The [place] [employer] (ADA) provides guidance for cutoff [...] Standards of Medical Care in Diabetes 2016, [place] [employer]. Diabetes Care. 2016.39(Suppl 1). Performed By: #### 2 4321-2 ####[facility] LABORATORYCLIA [id number] [place] [address] [place] Potassium [Moles/Vol] 3.7 mmol/L Normal 3.7-5.1 [facility] Comment on above: Order Comment: Speci men Type: BLOOD SPECIMENOrdering Facility: [facility] Address: [address] [address] Performed By: #### 2 4321-2 ####[facility] LABORATORYCLIA [id number] [place] [address] [place] Sodium [Moles/Vol] 137 mmol/L Normal 136-144 [facility] Comment on above: Order Comment: Speci men Type: BLOOD SPECIMENOrdering Facility: [facility] Address: [address] [address] Performed By: #### 2 4321-2 ####[facility] LABORATORYCLIA [id number] [place] [address] [place] Urea nitrogen [Mass/Vol] 23 mg/dL Normal 9-24 [facility] Comment on above: Order Comment: Speci men Type: BLOOD SPECIMENOrdering Facility: [facility] Address: [address] [place] [address] Performed By: #### 2 432-2 ####[facility] LABORATORYCLIA [id number] [place] [address] [place] Anion gap [Moles/Vol] 17 mmol/L Normal 9-18 [facility] Comment on above: Order Comment: Speci men Type: BLOOD SPECIMENOrdering Facility: [facility] Address: [address] [address] Performed By: #### 1 9123-9, 2777, 95952-7 ####[facility] LABORATORYCLIA [id number] [place] [address] [place] Calcium [Mass/Vol] 7.7 mg/dL Low 8.5-10.2 [facility] Comment on above: Order Comment: Speci men Type: BLOOD SPECIMENOrdering Facility: [facility] Address: [address] [address] Performed By: #### 1 9123-9, 2777-1, 98349-2 ####[facility]ORATORYCLIA [id number] [address] STATES OF [facility] Chloride [Moles/Vol] 86 mmol/L Low 97-105 [facility] Comment on above: Order Comment: Speci men Type: BLOOD SPECIMENOrdering Facility: [facility] Address: [address] [place] [address] Performed By: #### 1 9123-9, 2777-1, 47132-3 ####[facility] LABORATORYCLIA [id number] [address] OF [facility] CO2 [Moles/Vol] 24 mmol/L Normal 22-30 [facility] Comment on above: Order Comment: Speci men Type: BLOOD SPECIMENOrdering Facility: [facility] Address: [address] [place] [address] Performed By: #### 1 9123-9, 2777-1, 96140-7 ####[facility] SERVICESCLIA [id number] [address] Creatinine [Mass/Vol] 0.53 mg/dL Low 0.73-1.22 [facility] Comment on above: Order Comment: Speci men Type: BLOOD SPECIMENOrdering Facility: [facility] Address: [address] [place] [address] Performed By: #### 1 9123-9, 2777-1, 52373-7 ####[facility] LABORATORYCLIA [id number] [address] ESTIMATED GLOMERULAR FILTRATION RATE 108 mL/min/1.73m??? Normal >=60 [facility] Comment on above: Order Comment: Speci men Type: BLOOD SPECIMENOrdering Facility: [facility] Address: [address] [place] [address] Result Comment: Luzmaria mated Glomerular Filtration Rate [...] GFR. Performed By: #### 1 9123-9, 2777-1, 14882-3 ####[facility] LABORATORYCLIA [id number] [place] [address] [place] Glucose [Mass/Vol] 455 mg/dL High 74-99 [facility] Comment on above: Order Comment: Speci men Type: BLOOD SPECIMENOrdering Facility: [facility] Address: [address] [id number] Result Comment: The [place] [employer] (ADA) provides guidance for cutoff [...] Standards of Medical Care in Diabetes 2016, [place] [employer]. Diabetes Care. 2016.39(Suppl 1). Performed By: #### 1 9123-9, 2777-, 17104-3 ####[facility] SERVICESCLIA [id number] [place] [address] [place] Potassium [Moles/Vol] 3.4 mmol/L Low 3.7-5.1 [facility] Comment on above: Order Comment: Johni men Type: BLOOD SPECIMENOrdering Facility: [facility] Address: [address] [id number] Performed By: #### 1 9123-9, 2777-1, 35109-7 ####[facility] LABORATORYIA [id number] [place] [address] [place] Sodium [Moles/Vol] 127 mmol/L Low 136-144 [facility] Comment on above: Order Comment: Shira feldman Type: BLOOD SPECIMENOrdering Facility: [facility] Address: [address] [id number] Performed By: #### 1 9123-9, 2777-1, 83412-6 ####[facility] LABORATORYCLIA [id number] [address] STATES [facility] Urea nitrogen [Mass/Vol] 21 mg/dL Normal 9-24 [facility] Comment on above: Order Comment: Speci men Type: BLOOD SPECIMENOrdering Facility: [facility] Address: [address] [place] [address] Performed By: #### 1 9123-9, 2777-1, 92899-9 ####[facility] LABORATORYCLIA [id number] [address] OF [facility] CASE MANAGEMon 08-10-2021 CASE MANAGEM Normal [facility] CBC W Auto Differential pane l (Bld)on 08-10-2021 Basophils (Bld) [#/Vol] 0.04 10*3/uL Normal <0.11 [facility] Comment on above: Order Comment: Speci men Type: BLOOD SPECIMENOrdering Facility: [facility] Address: [address] [place] [address] Performed By: #### 5 7021-8 ####[facility] LABORATORYCLIA [id number] [address] STATES [facility] Basophils/100 WBC (Bld) 0.4 % Normal [facility] Comment on above: Order Comment: Speci men Type: BLOOD SPECIMENOrdering Facility: [facility] Address: [address] [place] [address] Performed By: #### 5 7021-8 ####[facility] LABORATORYCLIA [id number] [address] STATES [facility] Differential cell count method Nom (Bld) Auto Normal [facility] Comment on above: Order Comment: Speci men Type: BLOOD SPECIMENOrdering Facility: [facility] Address: [address] [place] [address] Performed By: #### 5 7021-8 ####[facility] LABORATORYCLIA [id number] [address] STATES [place] Eosinophils (Bld) [#/Vol] 0.11 10*3/uL Normal <0.46 [facility] Comment on above: Order Comment: Speci men Type: BLOOD SPECIMENOrdering Facility: [facility] Address: [address] [address] Performed By: #### 5 7021-8 ####[facility] LABORATORYCLIA [id number] [address] STATES [place] Eosinophils/100 WBC (Bld) 1.1 % Normal [facility] Comment on above: Order Comment: Speci men Type: BLOOD SPECIMENOrdering Facility: [facility] Address: [address] [place] [address] Performed By: #### 5 7021-8 ####[facility] LABORATORYCLIA [id number] [address] Erythrocyte distribution width (RBC) [Ratio] 17.2 % High 11.5-15.0 [facility] Comment on above: Order Comment: Speci men Type: BLOOD SPECIMENOrdering Facility: [facility] Address: [address] [place] [address] Performed By: #### 5 7021-8 ####[facility] LABORATORYCLIA [id number] [address] STATES [place] Hematocrit (Bld) [Volume fraction] 25.5 % Low 39.0-51.0 [facility] Comment on above: Order Comment: Speci men Type: BLOOD SPECIMENOrdering Facility: [facility] Address: [address] [address] Performed By: #### 5 7021-8 ####[facility] LABORATORYCLIA [id number] [address] [place] Hemoglobin (Bld) [Mass/Vol] 7.9 g/dL Low 13.0-17.0 [facility] Comment on above: Order Comment: Speci men Type: BLOOD SPECIMENOrdering Facility: [facility] Address: [address] [place], [place] [id number] Performed By: #### 5 7021-8 ####[facility] LABORATORYCLIA [id number] [address] IMMATURE GRAN % 0.4 % Normal [facility] Comment on above: Order Comment: Speci men Type: BLOOD SPECIMENOrdering Facility: [facility] Address: [address] [place] [address] Performed By: #### 5 7021-8 ####[facility] LABORATORYCLIA [id number] [address] IMMATURE GRAN ABS 0.04 k/uL Normal <0.10 [facility] Comment on above: Order Comment: Speci men Type: BLOOD SPECIMENOrdering Facility: [facility] Address: [address] [place] [address] Performed By: #### 5 7021-8 ####[facility] LABORATORYCLIA [id number] [address] Lymphocytes (Bld) [#/Vol] 1.66 10*3/uL Normal 1.00-4.00 [facility] Comment on above: Order Comment: Speci men Type: BLOOD SPECIMENOrdering Facility: [facility] Address: [address] [place] [address] Performed By: #### 5 7021-8 ####[facility] LABORATORYCLIA [id number] [address] Lymphocytes/100 WBC (Bld) 16.2 % Normal [facility] Comment on above: Order Comment: Speci men Type: BLOOD SPECIMENOrdering Facility: [facility] Address: [address] [place] [address] Performed By: #### 5 7021-8 ####[facility] LABORATORYCLIA [id number] [address] MCH (RBC) [Entitic mass] 28.5 pg Normal 26.0-34.0 [facility] Comment on above: Order Comment: Speci men Type: BLOOD SPECIMENOrdering Facility: [facility] Address: [address] [place] [address] Performed By: #### 5 7021-8 ####[facility] LABORATORYCLIA [id number] [address] MCHC (RBC) [Mass/Vol] 31.0 g/dL Normal 30.5-36.0 [facility] Comment on above: Order Comment: Speci men Type: BLOOD SPECIMENOrdering Facility: [facility] Address: [address] [place] [address] Performed By: #### 5 7021-8 ####[facility] LABORATORYCLIA [id number] [address] MCV (RBC) [Entitic vol] 92.1 fL Normal 80.0-100.0 [facility] Comment on above: Order Comment: Speci men Type: BLOOD SPECIMENOrdering Facility: [facility] Address: [address] [place] [address] Performed By: #### 5 7021-8 ####[facility] LABORATORYCLIA [id number] [address] Monocytes (Bld) [#/Vol] 0.51 10*3/uL Normal <0.87 [facility] Comment on above: Order Comment: Speci men Type: BLOOD SPECIMENOrdering Facility: [facility] Address: [address] [place] [address] Performed By: #### 5 7021-8 ####[facility] LABORATORYCLIA [id number] [address] Monocytes/100 WBC (Bld) 5.0 % Normal [facility] Comment on above: Order Comment: Speci men Type: BLOOD SPECIMENOrdering Facility: [facility] Address: [address] [place] [address] Performed By: #### 5 7021-8 ####[facility] LABORATORYCLIA [id number] [address] [place] Neutrophils (Bld) [#/Vol] 7.91 10*3/uL High 1.45-7.50 [facility] Comment on above: Order Comment: Speci men Type: BLOOD SPECIMENOrdering Facility: [facility] Address: [address] [place] [address] Performed By: #### 5 7021-8 ####[facility] LABORATORYCLIA [id number] [address] Neutrophils/100 WBC (Bld) 76.9 % Normal [facility] Comment on above: Order Comment: Speci men Type: BLOOD SPECIMENOrdering Facility: [facility] Address: [address] [place] [address] Performed By: #### 5 7021-8 ####[facility] LABORATORYCLIA [id number] [address] STATES [facility] Nucleated RBC (Bld) [#/Vol] 10*3/uL Normal <0.01 [facility] Comment on above: Order Comment: Speci men Type: BLOOD SPECIMENOrdering Facility: [facility] Address: [address] [place] [address] Performed By: #### 5 7021-8 ####[facility] LABORATORYCLIA [id number] [address] Nucleated RBC/100 WBC (Bld) [Ratio] 0.0 /100 WBC Normal [facility] Comment on above: Order Comment: Speci men Type: BLOOD SPECIMENOrdering Facility: [facility] Address: [address] [place] [address] Performed By: #### 5 7021-8 ####[facility] LABORATORYCLIA [id number] [address] Platelet mean volume (Bld) [Entitic vol] 10.3 fL Normal 9.0-12.7 [facility] Comment on above: Order Comment: Speci men Type: BLOOD SPECIMENOrdering Facility: [facility] Address: [address] [place] [address] Performed By: #### 5 7021-8 ####[facility] LABORATORYCLIA [id number] [address] STATES OF [facility] Platelets (Bld) [#/Vol] 152 10*3/uL Normal 150-400 [facility] Comment on above: Order Comment: Speci men Type: BLOOD SPECIMENOrdering Facility: [facility] Address: [address] [place] [address] Performed By: #### 5 7021-8 ####[facility] LABORATORYCLIA [id number] [address] STATES OF [facility] RBC (Bld) [#/Vol] 2.77 10*6/uL Low 4.20-6.00 [facility] Comment on above: Order Comment: Speci men Type: BLOOD SPECIMENOrdering Facility: [facility] Address: [address] [place] [address] Performed By: #### 5 7021-8 ####[facility] LABORATORYCLIA [id number] [address] WBC (Bld) [#/Vol] 10.27 10*3/uL Normal 3.70-11.00 [facility] Comment on above: Order Comment: Speci men Type: BLOOD SPECIMENOrdering Facility: [facility] Address: [address] [place] [address] Performed By: #### 5 7021-8 ####[facility] LABORATORYCLIA [id number] [address] [place] Magnesium SerPl-mCncon 08-10 Magnesium [Mass/Vol] 1.8 mg/dL Normal 1.7-2.3 [facility] Comment on above: Order Comment: Speci men Type: BLOOD SPECIMENOrdering Facility: [facility] Address: [address] [place] [address] Performed By: #### 1 9123-9, 2777-1, 32008-6 ####[facility] LABORATORYCLIA [id number] [address] NURSING PROGon 08-10-2021 NURSING PROG Normal [facility] NURSING PROG Normal [facility] NUTRITIONon 08-10-2021 NUTRITION Normal [facility] Phosphate SerPl-mCncon 08-10 Phosphate [Mass/Vol] 3.7 mg/dL Normal 2.7-4.8 [facility] Comment on above: Order Comment: Speci men Type: BLOOD SPECIMENOrdering Facility: [facility] Address: [address] [place] [address] Performed By: #### 1 9123-9, 2777-1, 37743-2 ####[facility] LABORATORYCLIA [id number] [address] ALLIED HEALTHon 08-09-2021 ALLIED HEALTH Normal [facility] ANES POSTPROC EVALon 022 ANES POSTPROC EVAL Normal [facility] ANES PRE-OPon 08-09-2021 ANES PRE-OP Normal [facility] BRIEF OP NOTon 08-09-2021 BRIEF OP NOT Normal [facility] Basic metabolic 2000 panelon 08-09-2021 Anion gap [Moles/Vol] 8 mmol/L Low 9-18 [facility] Comment on above: Order Comment: Speci men Type: BLOOD SPECIMENOrdering Facility: [facility] Address: [address] [place] [address] Performed By: #### 2 4321-2, , 2776- ####[facility] LABORATORYCLIA [id number] [address] STATES OF [place] Calcium [Mass/Vol] 9.2 mg/dL Normal 8.5-10.2 [facility] Comment on above: Order Comment: Speci men Type: BLOOD SPECIMENOrdering Facility: [facility] Address: [address] [place] [address] Performed By: #### 2 4321-2, 79076-2, 2777- ####[facility] LABORATORYCLIA [id number] [address] STATES [place] Chloride [Moles/Vol] 97 mmol/L Normal 97-105 [facility] Comment on above: Order Comment: Speci men Type: BLOOD SPECIMENOrdering Facility: [facility] Address: [address] [place] [address] Performed By: #### 2 4321-2, , 2776-05 ####[facility] LABORATORYCLIA [id number] [place] [id number] [place] CO2 [Moles/Vol] 30 mmol/L Normal 22-30 [facility] Comment on above: Order Comment: Speci men Type: BLOOD SPECIMENOrdering Facility: [facility] Address: [address] [place] [address] Performed By: #### 2 4321-2, , 2776-05 ####[facility] LABORATORYCLIA [id number] [address] OF [facility] Creatinine [Mass/Vol] 0.51 mg/dL Low 0.73-1.22 [facility] Comment on above: Order Comment: Speci men Type: BLOOD SPECIMENOrdering Facility: [facility] Address: [address] [place] [address] Performed By: #### 2 4321-2, , 2776-05 ####[facility] LABORATORYCLIA [id number] [address] ESTIMATED GLOMERULAR FILTRATION RATE 110 mL/min/1.73m??? Normal >=60 [facility] Comment on above: Order Comment: Speci men Type: BLOOD SPECIMENOrdering Facility: [facility] Address: [address] [place] [address] Result Comment: Luzmaria mated Glomerular Filtration Rate [...] Performed By: #### 2 4321-2, , 2776-05 ####[facility] LABORATORYCLIA [id number] [place] [address] [place] Glucose [Mass/Vol] 106 mg/dL High 74-99 [facility] Comment on above: Order Comment: Speci men Type: BLOOD SPECIMENOrdering Facility: [facility] Address: [address] [place] [address] Result Comment: The [place] [employer] (ADA) provides guidance for cutoff [...] Standards of Medical Care in Diabetes 2016, [place] [employer]. Diabetes Care. 2016.39(Suppl 1). Performed By: #### 2 4321-2, , 2776-05 ####[facility] LABORATORYCLIA [id number] [place] [address] [place] Potassium [Moles/Vol] 4.1 mmol/L Normal 3.7-5.1 [facility] Comment on above: Order Comment: Speci men Type: BLOOD SPECIMENOrdering Facility: [facility] Address: [address] [place], [place] [id number] Performed By: #### 2 4321-2, , 2776-05 ####[facility] LABORATORYCLIA [id number] [place] [address] [place] Sodium [Moles/Vol] 135 mmol/L Low 136-144 [facility] Comment on above: Order Comment: Speci men Type: BLOOD SPECIMENOrdering Facility: [facility] Address: [address] [place] [address] Performed By: #### 2 4321-2, , 2776-05 ####[facility] LABORATORYCLIA [id number] [place] [address] [place] [facility] Urea nitrogen [Mass/Vol] 26 mg/dL High 9-24 [facility] Comment on above: Order Comment: Speci men Type: BLOOD SPECIMENOrdering Facility: [facility] Address: [address] [place] [address] Performed By: #### 2 4320-2, , 2776-05 ####[facility] LABORATORYCLIA [id number] [address] [place] CBC W Auto Differential pane l (Bld)on 08-09-2021 Basophils (Bld) [#/Vol] 0.06 10*3/uL Normal <0.11 [facility] Comment on above: Order Comment: Speci men Type: BLOOD SPECIMENOrdering Facility: [facility] Address: [address] [place] [address] Performed By: #### 5 7021-8 ####[facility] LABORATORYCLIA [id number] [address] STATES [place] Basophils/100 WBC (Bld) 0.5 % Normal [facility] Comment on above: Order Comment: Speci men Type: BLOOD SPECIMENOrdering Facility: [facility] Address: [address] [place] [address] Performed By: #### 5 7021-8 ####[facility] LABORATORYCLIA [id number] [address] Differential cell count method Nom (Bld) Auto Normal [facility] Comment on above: Order Comment: Speci men Type: BLOOD SPECIMENOrdering Facility: [facility] Address: [address] [place] [address] Performed By: #### 5 7021-8 ####[facility] LABORATORYCLIA [id number] [place] [address] [place] Eosinophils (Bld) [#/Vol] 0.42 10*3/uL Normal <0.46 [facility] Comment on above: Order Comment: Speci men Type: BLOOD SPECIMENOrdering Facility: [facility] Address: [address] [place] [address] Performed By: #### 5 7021-8 ####[facility] LABORATORYCLIA [id number] [address] [place] Eosinophils/100 WBC (Bld) 3.8 % Normal [facility] Comment on above: Order Comment: Speci men Type: BLOOD SPECIMENOrdering Facility: [facility] Address: [address] [place] [address] Performed By: #### 5 7021-8 ####[facility] LABORATORYCLIA [id number] [address] [place] Erythrocyte distribution width (RBC) [Ratio] 17.6 % High 11.5-15.0 [facility] Comment on above: Order Comment: Speci men Type: BLOOD SPECIMENOrdering Facility: [facility] Address: [address] [place] [address] Performed By: #### 5 7021-8 ####[facility] LABORATORYCLIA [id number] [address] [place] Hematocrit (Bld) [Volume fraction] 29.3 % Low 39.0-51.0 [facility] Comment on above: Order Comment: Speci men Type: BLOOD SPECIMENOrdering Facility: [facility] Address: [address] [place] [address] Performed By: #### 5 7021-8 ####[facility] LABORATORYCLIA [id number] [address] [place] Hemoglobin (Bld) [Mass/Vol] 9.0 g/dL Low 13.0-17.0 [facility] Comment on above: Order Comment: Speci men Type: BLOOD SPECIMENOrdering Facility: [facility] Address: [address] [place] [address] Performed By: #### 5 7021-8 ####[facility]ORATORYCLIA [id number] [address] IMMATURE GRAN % 0.5 % Normal [facility] Comment on above: Order Comment: Speci men Type: BLOOD SPECIMENOrdering Facility: [facility] Address: [address] [place] [address] Performed By: #### 5 7021-8 ####[facility] LABORATORYCLIA [id number] [address] IMMATURE GRAN ABS 0.05 k/uL Normal <0.10 [facility] Comment on above: Order Comment: Speci men Type: BLOOD SPECIMENOrdering Facility: [facility] Address: [address] [place] [address] Performed By: #### 5 7021-8 ####[facility] LABORATORYCLIA [id number] [address] Lymphocytes (Bld) [#/Vol] 2.00 10*3/uL Normal 1.00-4.00 [facility] Comment on above: Order Comment: Speci men Type: BLOOD SPECIMENOrdering Facility: [facility] Address: [address] [place] [address] Performed By: #### 5 7021-8 ####[facility] LABORATORYCLIA [id number] [address] Lymphocytes/100 WBC (Bld) 18.1 % Normal [facility] Comment on above: Order Comment: Speci men Type: BLOOD SPECIMENOrdering Facility: [facility] Address: [address] [place] [address] Performed By: #### 5 7021-8 ####[facility] LABORATORYCLIA [id number] [address] MCH (RBC) [Entitic mass] 28.1 pg Normal 26.0-34.0 [facility] Comment on above: Order Comment: Speci men Type: BLOOD SPECIMENOrdering Facility: [facility] Address: [address] [place] [address] Performed By: #### 5 7021-8 ####[facility] LABORATORYCLIA [id number] [address] [place] MCHC (RBC) [Mass/Vol] 30.7 g/dL Normal 30.5-36.0 [facility] Comment on above: Order Comment: Speci men Type: BLOOD SPECIMENOrdering Facility: [facility] Address: [address] [place] [address] Performed By: #### 5 7021-8 ####[facility] LABORATORYCLIA [id number] [address] STATES OF [facility] MCV (RBC) [Entitic vol] 91.6 fL Normal 80.0-100.0 [facility] Comment on above: Order Comment: Speci men Type: BLOOD SPECIMENOrdering Facility: [facility] Address: [address] [place] [address] Performed By: #### 5 7021-8 ####[facility] LABORATORYCLIA [id number] [address] Monocytes (Bld) [#/Vol] 0.68 10*3/uL Normal <0.87 [facility] Comment on above: Order Comment: Speci men Type: BLOOD SPECIMENOrdering Facility: [facility] Address: [address] [place] [address] Performed By: #### 5 7021-8 ####[facility] LABORATORYCLIA [id number] [address] Monocytes/100 WBC (Bld) 6.2 % Normal [facility] Comment on above: Order Comment: Speci men Type: BLOOD SPECIMENOrdering Facility: [facility] Address: [address] [place] [address] Performed By: #### 5 7021-8 ####[facility] LABORATORYCLIA [id number] [address] [place] Neutrophils (Bld) [#/Vol] 7.82 10*3/uL High 1.45-7.50 [facility] Comment on above: Order Comment: Speci men Type: BLOOD SPECIMENOrdering Facility: [facility] Address: [address] [place] [address] Performed By: #### 5 7021-8 ####[facility]ORATORYCLIA [id number] [address] Neutrophils/100 WBC (Bld) 70.9 % Normal [facility] Comment on above: Order Comment: Speci men Type: BLOOD SPECIMENOrdering Facility: [facility] Address: [address] [place] [address] Performed By: #### 5 7021-8 ####[facility] LABORATORYCLIA [id number] [address] [place] Nucleated RBC (Bld) [#/Vol] 10*3/uL Normal <0.01 [facility] Comment on above: Order Comment: Speci men Type: BLOOD SPECIMENOrdering Facility: [facility] Address: [address] [place] [address] Performed By: #### 5 7021-8 ####[facility] LABORATORYCLIA [id number] [address] Nucleated RBC/100 WBC (Bld) [Ratio] 0.0 /100 WBC Normal [facility] Comment on above: Order Comment: Speci men Type: BLOOD SPECIMENOrdering Facility: [facility] Address: [address] [place] [address] Performed By: #### 5 7021-8 ####[facility] LABORATORYCLIA [id number] [address] [place] Platelet mean volume (Bld) [Entitic vol] 10.1 fL Normal 9.0-12.7 [facility] Comment on above: Order Comment: Speci men Type: BLOOD SPECIMENOrdering Facility: [facility] Address: [address] [place] [address] Performed By: #### 5 7021-8 ####[facility] LABORATORYCLIA [id number] [place] [address] [place] Platelets (Bld) [#/Vol] 160 10*3/uL Normal 150-400 [facility] Comment on above: Order Comment: Speci men Type: BLOOD SPECIMENOrdering Facility: [facility] Address: [address] [place] [address] Performed By: #### 5 7021-8 ####[facility] LABORATORYCLIA [id number] [place] [address] [place] RBC (Bld) [#/Vol] 3.20 10*6/uL Low 4.20-6.00 [facility] Comment on above: Order Comment: Speci men Type: BLOOD SPECIMENOrdering Facility: [facility] Address: [address] [place] [address] Performed By: #### 5 7021-8 ####[facility] LABORATORYCLIA [id number] [address] STATES OF [facility] WBC (Bld) [#/Vol] 11.03 10*3/uL High 3.70-11.00 [facility] Comment on above: Order Comment: Speci men Type: BLOOD SPECIMENOrdering Facility: [facility] Address: [address] [place] [address] Performed By: #### 5 7021-8 ####[facility] LABORATORYCLIA [id number] [address] [place] CONSULT PROGon 08-09-2021 CONSULT PROG Normal [facility] CT BRAIN WO IVCONon 08-10-[address] BRAIN WO IVCON Normal [facility] CT BRAIN WO IVCON Normal [facility] Magnesium SerPl-mCncon 08-09 Magnesium [Mass/Vol] 2.0 mg/dL Normal 1.7-2.3 [facility] Comment on above: Order Comment: Speci men Type: BLOOD SPECIMENOrdering Facility: [facility] Address: [address] [place] [address] Performed By: #### 2 4321-2, 67471-3, 2777-1 ####[facility]ORATORYCLIA [id number] [address] STATES OF [facility] NURSING PROGon 08-09-2021 NURSING PROG Normal [facility] OPERATIVE NOon 08-09-2021 OPERATIVE NO Normal [facility] PT panel Coag (PPP)on 2021 INR Coag (PPP) [Relative time] 1.1 {INR} Normal 0.9-1.3 [facility] Comment on above: Order Comment: Shira feldman Type: BLOOD SPECIMENOrdering Facility: [facility] Address: [address] [place] [address] Result Comment: Yris min K Antagonist (VKA) Therapeutic Range: INR 2 to 3 (Target INR of 2.5)Note: For patients treated with VKA drugs, such as warfarin, the [place] [employer] 2012 Guideline recommends [...] al. Chest 2012, 141:7S-47SAlba RA, et al. [facility] 2017, 70: 252-289 Performed By: #### 3 4528-0, 62801-3 ####[facility] LABORATORYCLIA [id number] [address] STATES OF [facility] PT Coag (PPP) [Time] 11.7 s Normal 9.7-13.0 [facility] Comment on above: Order Comment: Shira feldman Type: BLOOD SPECIMENOrdering Facility: [facility] Address: [address] [place] [id number] Performed By: #### 3 4528-0, 44775-0 ####[facility] LABORATORYCLIA [id number] [address] [place] Phosphate SerPl-mCncon 08-09 Phosphate [Mass/Vol] 4.0 mg/dL Normal 2.7-4.8 [facility] Comment on above: Order Comment: Speci men Type: BLOOD SPECIMENOrdering Facility: [facility] Address: [address] [place] [address] Performed By: #### 2 4321-2, 16526-1, 2777-1 ####[facility] LABORATORYCLIA [id number] [address] THERAPY NTon 08-09-[address] [facility] THERAPY NT Normal [facility] TYPE AND SCREENon 08-09-[address] [facility] Comment on above: Order Comment: Speci men Type: BLOOD SPECIMENOrdering Facility: [facility] Address: [address] [place] [address] Performed By: #### T SCR ####[facility] BLOOD BANKCLIA [id number] [address] HISTORICAL AB SCR STATUS Negative [facility] Comment on above: Order Comment: Speci men Type: BLOOD SPECIMENOrdering Facility: [facility] Address: [address] [place] [address] Performed By: #### T SCR ####[facility] BLOOD BANKCLIA [id number] [address] Rh Nom (Bld) Positive [facility] Comment on above: Order Comment: Speci men Type: BLOOD SPECIMENOrdering Facility: [facility] Address: [address] [place] [address] Performed By: #### T SCR ####[facility] BLOOD BANKCLIA [id number] [address] TYPE AND SCREEN EXPIRATION 08/12/2021 23:59 Normal [facility] Comment on above: Order Comment: Speci men Type: BLOOD SPECIMENOrdering Facility: [facility] Address: [address] [place] [address] Performed By: #### T SCR ####[facility] BLOOD BANKCLIA [id number] [address] XR ABD 2V SUPINE W UPR/DECUB /CTLon 08-09-2021 XR ABD 2V SUPINE W UPR/DECUB/CTL Normal [facility] XR CHEST 1V FRONTALon 2021 XR CHEST 1V FRONTAL Normal [facility] XR NECK SOFT TISSUE 2V AP/LA Ton 08-09-2021 XR NECK SOFT TISSUE 2V AP/LAT Normal [facility] XR SKULL 2V AP/LATon 022 XR SKULL 2V AP/LAT Normal [facility] aPTT PPPon 08-09-2021 aPTT Coag (PPP) [Time] 26.8 s Normal 23.0-32.4 [facility] Comment on above: Order Comment: Speci men Type: BLOOD SPECIMENOrdering Facility: [facility] Address: [address] [place] [address] Performed By: #### 3 4528-0, 76024-6 ####[facility] LABORATORYCLIA [id number] [address] CASE MANAGEMon 08-08-2021 CASE MANAGEM Normal [facility] CBC W Auto Differential pane l (Bld)on 08-08-2021 Basophils (Bld) [#/Vol] 0.05 10*3/uL Normal <0.11 [facility] Comment on above: Order Comment: Speci men Type: BLOOD SPECIMENOrdering Facility: [facility] Address: [address] [address] Performed By: #### 5 7021-8 ####[facility] LABORATORYCLIA [id number] [address] Basophils/100 WBC (Bld) 0.5 % Normal [facility] Comment on above: Order Comment: Speci men Type: BLOOD SPECIMENOrdering Facility: [facility] Address: [address] [address] Performed By: #### 5 7021-8 ####[facility]ORATORYCLIA [id number] [address] Differential cell count method Nom (Bld) Auto Normal [facility] Comment on above: Order Comment: Speci men Type: BLOOD SPECIMENOrdering Facility: [facility] Address: [address] [place] [address] Performed By: #### 5 7021-8 ####[facility]ATORYCLIA [id number] [address] Eosinophils (Bld) [#/Vol] 0.17 10*3/uL Normal <0.46 [facility] Comment on above: Order Comment: Speci men Type: BLOOD SPECIMENOrdering Facility: [facility] Address: [address] [place] [address] Performed By: #### 5 7021-8 ####[facility] LABORATORYCLIA [id number] [address] Eosinophils/100 WBC (Bld) 1.6 % Normal [facility] Comment on above: Order Comment: Speci men Type: BLOOD SPECIMENOrdering Facility: [facility] Address: [address] [place] [address] Performed By: #### 5 7021-8 ####[facility] LABORATORYCLIA [id number] [address] Erythrocyte distribution width (RBC) [Ratio] 17.8 % High 11.5-15.0 [facility] Comment on above: Order Comment: Speci men Type: BLOOD SPECIMENOrdering Facility: [facility] Address: [address] [place] [address] Performed By: #### 5 7021-8 ####[facility] LABORATORYCLIA [id number] [address] Hematocrit (Bld) [Volume fraction] 29.6 % Low 39.0-51.0 [facility] Comment on above: Order Comment: Speci men Type: BLOOD SPECIMENOrdering Facility: [facility] Address: [address] [place] [address] Performed By: #### 5 7021-8 ####[facility]ORATORYCLIA [id number] [address] Hemoglobin (Bld) [Mass/Vol] 9.0 g/dL Low 13.0-17.0 [facility] Comment on above: Order Comment: Speci men Type: BLOOD SPECIMENOrdering Facility: [facility] Address: [address] [place] [address] Performed By: #### 5 7021-8 ####[facility] LABORATORYCLIA [id number] [address] IMMATURE GRAN % 0.5 % Normal [facility] Comment on above: Order Comment: Speci men Type: BLOOD SPECIMENOrdering Facility: [facility] Address: [address] [place] [address] Performed By: #### 5 7021-8 ####[facility] LABORATORYCLIA [id number] [address] IMMATURE GRAN ABS 0.05 k/uL Normal <0.10 [facility] Comment on above: Order Comment: Speci men Type: BLOOD SPECIMENOrdering Facility: [facility] Address: [address] [place] [address] Performed By: #### 5 7021-8 ####[facility] LABORATORYCLIA [id number] [address] [place] Lymphocytes (Bld) [#/Vol] 1.93 10*3/uL Normal 1.00-4.00 [facility] Comment on above: Order Comment: Speci men Type: BLOOD SPECIMENOrdering Facility: [facility] Address: [address] [place] [address] Performed By: #### 5 7021-8 ####[facility]ORATORYCLIA [id number] [address] Lymphocytes/100 WBC (Bld) 18.2 % Normal [facility] Comment on above: Order Comment: Speci men Type: BLOOD SPECIMENOrdering Facility: [facility] Address: [address] [place] [address] Performed By: #### 5 7021-8 ####[facility] LABORATORYCLIA [id number] [address] MCH (RBC) [Entitic mass] 28.1 pg Normal 26.0-34.0 [facility] Comment on above: Order Comment: Speci men Type: BLOOD SPECIMENOrdering Facility: [facility] Address: [address] [place] [address] Performed By: #### 5 7021-8 ####[facility] LABORATORYCLIA [id number] [address] MCHC (RBC) [Mass/Vol] 30.4 g/dL Low 30.5-36.0 [facility] Comment on above: Order Comment: Speci men Type: BLOOD SPECIMENOrdering Facility: [facility] Address: [address] [place] [address] Performed By: #### 5 7021-8 ####[facility] LABORATORYCLIA [id number] [address] MCV (RBC) [Entitic vol] 92.5 fL Normal 80.0-100.0 [facility] Comment on above: Order Comment: Speci men Type: BLOOD SPECIMENOrdering Facility: [facility] Address: [address] [place] [address] Performed By: #### 5 7021-8 ####[facility] LABORATORYCLIA [id number] [address] Monocytes (Bld) [#/Vol] 0.75 10*3/uL Normal <0.87 [facility] Comment on above: Order Comment: Speci men Type: BLOOD SPECIMENOrdering Facility: [facility] Address: [address] [place] [address] Performed By: #### 5 7021-8 ####[facility] LABORATORYCLIA [id number] [place] [address] [place] Monocytes/100 WBC (Bld) 7.1 % Normal [facility] Comment on above: Order Comment: Speci men Type: BLOOD SPECIMENOrdering Facility: [facility] Address: [address] [place] [address] Performed By: #### 5 7021-8 ####[facility] LABORATORYCLIA [id number] [place] [address] [place] Neutrophils (Bld) [#/Vol] 7.65 10*3/uL High 1.45-7.50 [facility] Comment on above: Order Comment: Speci men Type: BLOOD SPECIMENOrdering Facility: [facility] Address: [address] [place] [address] Performed By: #### 5 7021-8 ####[facility] LABORATORYCLIA [id number] [address] [place] Neutrophils/100 WBC (Bld) 72.1 % Normal [facility] Comment on above: Order Comment: Speci men Type: BLOOD SPECIMENOrdering Facility: [facility] Address: [address] [place] [address] Performed By: #### 5 7021-8 ####[facility] LABORATORYCLIA [id number] [place] [address] [place] Nucleated RBC (Bld) [#/Vol] 10*3/uL Normal <0.01 [facility] Comment on above: Order Comment: Speci men Type: BLOOD SPECIMENOrdering Facility: [facility] Address: [address] [place] [address] Performed By: #### 5 7021-8 ####[facility] LABORATORYCLIA [id number] [place] [address] [place] Nucleated RBC/100 WBC (Bld) [Ratio] 0.0 /100 WBC Normal [facility] Comment on above: Order Comment: Speci men Type: BLOOD SPECIMENOrdering Facility: [facility] Address: [address] [place] [address] Performed By: #### 5 7021-8 ####[facility] LABORATORYCLIA [id number] [address] Platelet mean volume (Bld) [Entitic vol] 9.8 fL Normal 9.0-12.7 [facility] Comment on above: Order Comment: Speci men Type: BLOOD SPECIMENOrdering Facility: [facility] Address: [address] [place] [address] Performed By: #### 5 7021-8 ####[facility] LABORATORYCLIA [id number] [address] [place] Platelets (Bld) [#/Vol] 175 10*3/uL Normal 150-400 [facility] Comment on above: Order Comment: Speci men Type: BLOOD SPECIMENOrdering Facility: [facility] Address: [address] [place] [address] Performed By: #### 5 7021-8 ####[facility] LABORATORYCLIA [id number] [address] STATES OF [facility] RBC (Bld) [#/Vol] 3.20 10*6/uL Low 4.20-6.00 [facility] Comment on above: Order Comment: Speci men Type: BLOOD SPECIMENOrdering Facility: [facility] Address: [address] [place] [address] Performed By: #### 5 7021-8 ####[facility] LABORATORYCLIA [id number] [address] [place] WBC (Bld) [#/Vol] 10.60 10*3/uL Normal 3.70-11.00 [facility] Comment on above: Order Comment: Speci men Type: BLOOD SPECIMENOrdering Facility: [facility] Address: [address] [place], [place] [address] Performed By: #### 5 7021-8 ####[facility] LABORATORYCLIA [id number] [address] [place] CT BRAIN WO IVCONon 04-04-[address] BRAIN WO IVCON Normal [facility] NURSING PROGon 08-08-2021 NURSING PROG Normal [facility] Prealbumin [Mass/Vol]on Prealbumin Nephelometry [Mass/Vol] 29 mg/dL Normal 17-36 [facility] Comment on above: Order Comment: Speci men Type: BLOOD SPECIMENOrdering Facility: [facility] Address: [address] [place] [address] Performed By: #### 1 4338-8 ####[facility] LABORATORYCLIA [id number] [place] [address] [place] SARS-CoV-2 RNA Resp Ql MEGAN+p robeon 08-08-2021 SARS-CoV-2 (COVID-19) RNA MEGAN+probe Ql (Resp) COVID 19 RESULT: SARS-CoV-2 (Agent of COVID-19) Not Detected by RT-PCR or equivalent method. This test has been authorized by FDA under an Emergency Use Authorization (EUA). Normal [facility] Comment on above: Performed By: #### 9 4500-6 ####[facility] LABORATORYCLIA [id number] [place] [address] [place] ALLIED HEALTHon 08-07-2021 ALLIED HEALTH Normal [facility] Basic metabolic 2000 panelon 08-07-2021 Anion gap [Moles/Vol] 9 mmol/L Normal 9-18 [facility] Comment on above: Order Comment: Speci men Type: BLOOD SPECIMENOrdering Facility: [facility] Address: [address] [place] [address] Performed By: #### 2 4321-2, 2777-1, 27230-3, HFP ####[facility] LABORATORYCLIA [id number] [address] [place] Calcium [Mass/Vol] 9.4 mg/dL Normal 8.5-10.2 [facility] Comment on above: Order Comment: Speci men Type: BLOOD SPECIMENOrdering Facility: [facility] Address: [address] [place] [address] Performed By: #### 2 4321-2, 2777-, , HFP ####[facility] LABORATORYCLIA [id number] [place] [address] [place] Chloride [Moles/Vol] 98 mmol/L Normal 97-105 [facility] Comment on above: Order Comment: Speci men Type: BLOOD SPECIMENOrdering Facility: [facility] Address: [address] [place], [place] [address] Performed By: #### 2 4321-2, 277-, , HFP ####[facility] LABORATORYCLIA [id number] [address] STATES OF [facility] CO2 [Moles/Vol] 29 mmol/L Normal 22-30 [facility] Comment on above: Order Comment: Speci men Type: BLOOD SPECIMENOrdering Facility: [facility] Address: [address] [place] [address] Performed By: #### 2 4321-2, 277-, , HFP ####[facility] HE[facility] SERVICESCLIA [id number] [address] STATES OF [facility] Creatinine [Mass/Vol] 0.67 mg/dL Low 0.73-1.22 [facility] Comment on above: Order Comment: Speci men Type: BLOOD SPECIMENOrdering Facility: [facility] Address: [address] [place] [address] Performed By: #### 2 4321-2, 2776-05, , HFP ####[facility] LABORATORYCLIA [id number] [address] OF [facility] ESTIMATED GLOMERULAR FILTRATION RATE 101 mL/min/1.73m??? Normal >=60 [facility] Comment on above: Order Comment: Speci men Type: BLOOD SPECIMENOrdering Facility: [facility] Address: [address] [place], [place] [address] Result Comment: Luzmaria mated Glomerular Filtration Rate [...] Performed By: #### 2 4321-2, 2776-05, , [facility] ####[facility] LABORATORYCLIA [id number] [place] [address] [place] Glucose [Mass/Vol] 117 mg/dL High 74-99 [facility] Comment on above: Order Comment: Shira feldman Type: BLOOD SPECIMENOrdering Facility: [facility] Address: [address] [id number] Result Comment: The [place] [employer] (ADA) provides guidance for cutoff [...] Standards of Medical Care in Diabetes 2016, [place] [employer]. Diabetes Care. 2016.39(Suppl 1). Performed By: #### 2 4321-2, 2776-05, , [facility] ####[facility] LABORATORYCLIA [id number] [address] [id number] [place] Potassium [Moles/Vol] 4.1 mmol/L Normal 3.7-5.1 [facility] Comment on above: Order Comment: Shira feldman Type: BLOOD SPECIMENOrdering Facility: [facility] Address: [address] [place] [address] Performed By: #### 2 4321-2, 2776-05, , [facility] ####[facility] LABORATORYCLIA [id number] [place] [address] [place] Sodium [Moles/Vol] 136 mmol/L Normal 136-144 [facility] Comment on above: Order Comment: Speci men Type: BLOOD SPECIMENOrdering Facility: [facility] Address: [address] [place] [address] Performed By: #### 2 4321-2, 2776-, , [facility] ####[facility] LABORATORYCLIA [id number] [address] STATES [facility] Urea nitrogen [Mass/Vol] 31 mg/dL High 9-24 [facility] Comment on above: Order Comment: Speci men Type: BLOOD SPECIMENOrdering Facility: [facility] Address: [address] [place] [address] Performed By: #### 2 4321-2, 2776-05, , [facility] ####[facility] LABORATORYCLIA [id number] [address] STATES OF [facility] CBC W Auto Differential pane l (Bld)on 08-07-2021 Basophils (Bld) [#/Vol] 0.03 10*3/uL Normal <0.11 [facility] Comment on above: Order Comment: Speci men Type: BLOOD SPECIMENOrdering Facility: [facility] Address: [address] [place] [address] Performed By: #### 5 7021-8 ####[facility]ORATORYCLIA [id number] [address] [place] Basophils/100 WBC (Bld) 0.3 % Normal [facility] Comment on above: Order Comment: Speci men Type: BLOOD SPECIMENOrdering Facility: [facility] Address: [address] [place] [address] Performed By: #### 5 7021-8 ####[facility] LABORATORYCLIA [id number] [address] Differential cell count method Nom (Bld) Auto Normal [facility] Comment on above: Order Comment: Speci men Type: BLOOD SPECIMENOrdering Facility: [facility] Address: [address] [place] [address] Performed By: #### 5 7021-8 ####[facility]ORATORYCLIA [id number] [address] OF [facility] Eosinophils (Bld) [#/Vol] 0.16 10*3/uL Normal <0.46 [facility] Comment on above: Order Comment: Speci men Type: BLOOD SPECIMENOrdering Facility: [facility] Address: [address] [place] [address] Performed By: #### 5 7021-8 ####[facility]ORATORYCLIA [id number] [address] Eosinophils/100 WBC (Bld) 1.6 % Normal [facility] Comment on above: Order Comment: Speci men Type: BLOOD SPECIMENOrdering Facility: [facility] Address: [address] [place] [address] Performed By: #### 5 7021-8 ####[facility] LABORATORYCLIA [id number] [address] Erythrocyte distribution width (RBC) [Ratio] 18.1 % High 11.5-15.0 [facility] Comment on above: Order Comment: Speci men Type: BLOOD SPECIMENOrdering Facility: [facility] Address: [address] [place] [address] Performed By: #### 5 7021-8 ####[facility]ORATORYCLIA [id number] [address] Hematocrit (Bld) [Volume fraction] 30.6 % Low 39.0-51.0 [facility] Comment on above: Order Comment: Speci men Type: BLOOD SPECIMENOrdering Facility: [facility] Address: [address] [place] [address] Performed By: #### 5 7021-8 ####[facility]ORATORYCLIA [id number] [address] [place] Hemoglobin (Bld) [Mass/Vol] 9.4 g/dL Low 13.0-17.0 [facility] Comment on above: Order Comment: Speci men Type: BLOOD SPECIMENOrdering Facility: [facility] Address: [address] [place] [address] Performed By: #### 5 7021-8 ####[facility]ORATORYCLIA [id number] [address] IMMATURE GRAN % 0.4 % Normal [facility] Comment on above: Order Comment: Speci men Type: BLOOD SPECIMENOrdering Facility: [facility] Address: [address] [place] [address] Performed By: #### 5 7021-8 ####[facility] LABORATORYCLIA [id number] [address] IMMATURE GRAN ABS 0.04 k/uL Normal <0.10 [facility] Comment on above: Order Comment: Speci men Type: BLOOD SPECIMENOrdering Facility: [facility] Address: [address] [place] [address] Performed By: #### 5 7021-8 ####[facility] LABORATORYCLIA [id number] [address] Lymphocytes (Bld) [#/Vol] 2.05 10*3/uL Normal 1.00-4.00 [facility] Comment on above: Order Comment: Speci men Type: BLOOD SPECIMENOrdering Facility: [facility] Address: [address] [place] [address] Performed By: #### 5 7021-8 ####[facility] LABORATORYCLIA [id number] [address] Lymphocytes/100 WBC (Bld) 20.2 % Normal [facility] Comment on above: Order Comment: Speci men Type: BLOOD SPECIMENOrdering Facility: [facility] Address: [address] [place] [address] Performed By: #### 5 7021-8 ####[facility] LABORATORYCLIA [id number] [address] [place] MCH (RBC) [Entitic mass] 28.8 pg Normal 26.0-34.0 [facility] Comment on above: Order Comment: Speci men Type: BLOOD SPECIMENOrdering Facility: [facility] Address: [address] [place] [address] Performed By: #### 5 7021-8 ####[facility] LABORATORYCLIA [id number] [address] [place] MCHC (RBC) [Mass/Vol] 30.7 g/dL Normal 30.5-36.0 [facility] Comment on above: Order Comment: Speci men Type: BLOOD SPECIMENOrdering Facility: [facility] Address: [address] [place] [address] Performed By: #### 5 7021-8 ####[facility] LABORATORYCLIA [id number] [address] [place] MCV (RBC) [Entitic vol] 93.9 fL Normal 80.0-100.0 [facility] Comment on above: Order Comment: Speci men Type: BLOOD SPECIMENOrdering Facility: [facility] Address: [address] [place] [address] Performed By: #### 5 7021-8 ####[facility] LABORATORYCLIA [id number] [address] [place] Monocytes (Bld) [#/Vol] 0.64 10*3/uL Normal <0.87 [facility] Comment on above: Order Comment: Speci men Type: BLOOD SPECIMENOrdering Facility: [facility] Address: [address] [place] [address] Performed By: #### 5 7021-8 ####[facility] LABORATORYCLIA [id number] [address] Monocytes/100 WBC (Bld) 6.3 % Normal [facility] Comment on above: Order Comment: Speci men Type: BLOOD SPECIMENOrdering Facility: [facility] Address: [address] [place] [address] Performed By: #### 5 7021-8 ####[facility] LABORATORYCLIA [id number] [place] [address] [place] Neutrophils (Bld) [#/Vol] 7.22 10*3/uL Normal 1.45-7.50 [facility] Comment on above: Order Comment: Speci men Type: BLOOD SPECIMENOrdering Facility: [facility] Address: [address] [place] [address] Performed By: #### 5 7021-8 ####[facility] LABORATORYCLIA [id number] [address] [place] Neutrophils/100 WBC (Bld) 71.2 % Normal [facility] Comment on above: Order Comment: Speci men Type: BLOOD SPECIMENOrdering Facility: [facility] Address: [address] [place] [address] Performed By: #### 5 7021-8 ####[facility] LABORATORYCLIA [id number] [address] [place] Nucleated RBC (Bld) [#/Vol] 10*3/uL Normal <0.01 [facility] Comment on above: Order Comment: Speci men Type: BLOOD SPECIMENOrdering Facility: [facility] Address: [address] [place] [address] Performed By: #### 5 7021-8 ####[facility] LABORATORYCLIA [id number] [address] [place] Nucleated RBC/100 WBC (Bld) [Ratio] 0.0 /100 WBC Normal [facility] Comment on above: Order Comment: Speci men Type: BLOOD SPECIMENOrdering Facility: [facility] Address: [address] [place] [address] Performed By: #### 5 7021-8 ####[facility] LABORATORYCLIA [id number] [address] [place] Platelet mean volume (Bld) [Entitic vol] 9.9 fL Normal 9.0-12.7 [facility] Comment on above: Order Comment: Speci men Type: BLOOD SPECIMENOrdering Facility: [facility] Address: [address] [place] [address] Performed By: #### 5 7021-8 ####[facility] LABORATORYCLIA [id number] [address] Platelets (Bld) [#/Vol] 227 10*3/uL Normal 150-400 [facility] Comment on above: Order Comment: Speci men Type: BLOOD SPECIMENOrdering Facility: [facility] Address: [address] [place] [address] Performed By: #### 5 7021-8 ####[facility] LABORATORYCLIA [id number] [address] RBC (Bld) [#/Vol] 3.26 10*6/uL Low 4.20-6.00 [facility] Comment on above: Order Comment: Speci men Type: BLOOD SPECIMENOrdering Facility: [facility] Address: [address] [place] [address] Performed By: #### 5 7021-8 ####[facility] LABORATORYCLIA [id number] [address] WBC (Bld) [#/Vol] 10.14 10*3/uL Normal 3.70-11.00 [facility] Comment on above: Order Comment: Speci men Type: BLOOD SPECIMENOrdering Facility: [facility] Address: [address] [place] [address] Performed By: #### 5 7021-8 ####[facility] LABORATORYCLIA [id number] [address] BRAIN WO IVCONon 08-08-19 CT BRAIN WO IVCON Normal [facility] HEPATIC FUNCTION PNLon 08-07 Albumin [Mass/Vol] 3.6 g/dL Low 3.9-4.9 [facility] Comment on above: Order Comment: Speci men Type: BLOOD SPECIMENOrdering Facility: [facility] Address: [address] [place] [address] Performed By: #### 2 4321-2, 2777-1, , HFP ####[facility] LABORATORYCLIA [id number] [address] ALP [Catalytic activity/Vol] 124 U/L High 38-113 [facility] Comment on above: Order Comment: Speci men Type: BLOOD SPECIMENOrdering Facility: [facility] Address: [address] [place], [place] [address] Performed By: #### 2 4321-2, 2776-, , HFP ####[facility] LABORATORYCLIA [id number] [address] ALT With P-5'-P [Catalytic activity/Vol] 29 U/L Normal 10-54 [facility] Comment on above: Order Comment: Speci men Type: BLOOD SPECIMENOrdering Facility: [facility] Address: [address] [place] [address] Performed By: #### 2 4321-2, 2776-05, , HFP ####[facility] LABORATORYCLIA [id number] [address] AST With P-5'-P [Catalytic activity/Vol] 18 U/L Normal 14-40 [facility] Comment on above: Order Comment: Speci men Type: BLOOD SPECIMENOrdering Facility: [facility] Address: [address] [place], [place] [address] Performed By: #### 2 4321-2, 2776-, , HFP ####[facility]ORATORYCLIA [id number] [address] Bilirubin [Mass/Vol] 0.3 mg/dL Normal 0.2-1.3 [facility] Comment on above: Order Comment: Speci men Type: BLOOD SPECIMENOrdering Facility: [facility] Address: [address] [place], [place] [address] Performed By: #### 2 4321-2, 2776-, , HFP ####[facility] LABORATORYCLIA [id number] [place] [address] [place] Bilirubin.conjugated [Mass/Vol] mg/dL Normal <0.2 [facility] Comment on above: Order Comment: Speci men Type: BLOOD SPECIMENOrdering Facility: [facility] Address: [address] [place] [address] Performed By: #### 2 4321-2, 27711-04, , HFP ####[facility] LABORATORYCLIA [id number] [place] [address] [place] Protein [Mass/Vol] 6.4 g/dL Normal 6.3-8.0 [facility] Comment on above: Order Comment: Speci men Type: BLOOD SPECIMENOrdering Facility: [facility] Address: [address] [place] [address] Performed By: #### 2 4321-2, 27711-04, , HFP ####[facility] LABORATORYCLIA [id number] [address] [place] Magnesium SerPl-mCncon 08-07 Magnesium [Mass/Vol] 2.3 mg/dL Normal 1.7-2.3 [facility] Comment on above: Order Comment: Speci men Type: BLOOD SPECIMENOrdering Facility: [facility] Address: [address] [place] [address] Performed By: #### 2 4321-2, 27711-04, , HFP ####[facility] LABORATORYCLIA [id number] [place] [address] [place] NURSING PROGon 08-07-2021 NURSING PROG Normal [facility] Phosphate SerPl-mCncon 08-07 Phosphate [Mass/Vol] 3.5 mg/dL Normal 2.7-4.8 [facility] Comment on above: Order Comment: Speci men Type: BLOOD SPECIMENOrdering Facility: [facility] Address: [address] [place] [address] Performed By: #### 2 4321-2, 2776-1, , HFP ####[facility] LABORATORYCLIA [id number] [place] [address] [place] ANES POSTPROC EVALon 022 ANES POSTPROC EVAL Normal [facility] Basic metabolic 2000 panelon 08-06-2021 Anion gap [Moles/Vol] 11 mmol/L Normal 9-18 [facility] Comment on above: Order Comment: Speci men Type: BLOOD SPECIMENOrdering Facility: [facility] Address: [address] [place], [place] [address] Performed By: #### 2 4321-2, 2776-05, ####[facility] LABORATORYCLIA [id number] [place] [address] [place] Calcium [Mass/Vol] 8.2 mg/dL Low 8.5-10.2 [facility] Comment on above: Order Comment: Speci men Type: BLOOD SPECIMENOrdering Facility: [facility] Address: [address] [place], [place] [address] Performed By: #### 2 4321-2, 2776-05, ####[facility] LABORATORYCLIA [id number] [place] [address] [place] Chloride [Moles/Vol] 100 mmol/L Normal 97-105 [facility] Comment on above: Order Comment: Speci men Type: BLOOD SPECIMENOrdering Facility: [facility] Address: [address] Performed By: #### 2 4321-2, 2776-05, ####[facility] LABORATORYCLIA [id number] [place] [id number] [place] CO2 [Moles/Vol] 23 mmol/L Normal 22-30 [facility] Comment on above: Order Comment: Speci men Type: BLOOD SPECIMENOrdering Facility: [facility] Address: [address] Performed By: #### 2 4321-2, 7-, ####[facility] HE[facility] SERVICESCLIA [id number] [place] [address] [place] [facility] Creatinine [Mass/Vol] 0.55 mg/dL Low 0.73-1.22 [facility] Comment on above: Order Comment: Speccara feldman Type: BLOOD SPECIMENOrdering Facility: [facility] Address: [address] [place], [place] [address] Performed By: #### 2 4321-2, 277-, ####[facility] HE[facility] SERVICESCLIA [id number] [place] [address] [facility] OF [facility] ESTIMATED GLOMERULAR FILTRATION RATE 107 mL/min/1.73m??? Normal >=60 [facility] Comment on above: Order Comment: Shira feldman Type: BLOOD SPECIMENOrdering Facility: [facility] Address: [address] [place], [place] [address] Result Comment: Luzmaria mated Glomerular Filtration Rate [...] Performed By: #### 2 4321-2, 2777-, ####[facility]ITAL[facility] [id number] [place] [address] [place] Glucose [Mass/Vol] 275 mg/dL High 74-99 [facility] Comment on above: Order Comment: Speccara feldman Type: BLOOD SPECIMENOrdering Facility: [facility] Address: [address] [phone] Result Comment: The [place] [employer] (ADA) provides guidance for cutoff [...] Standards of Medical Care in Diabetes 2016, [place] [employer]. Diabetes Care. 2016.39(Suppl 1). Performed By: #### 2 4321-2, 2776-, ####[facility] LABORATORYCLIA [id number] [address] STATES OF [facility] Potassium [Moles/Vol] 3.6 mmol/L Low 3.7-5.1 [facility] Comment on above: Order Comment: Shira feldman Type: BLOOD SPECIMENOrdering Facility: [facility] Address: [address] [place] [address] Performed By: #### 2 4321-2, 2776-05, ####[facility]ITALIA [id number] [address] Sodium [Moles/Vol] 134 mmol/L Low 136-144 [facility] Comment on above: Order Comment: Shira feldman Type: BLOOD SPECIMENOrdering Facility: [facility] Address: [address] [place] [address] Performed By: #### 2 4321-2, 2776-05, ####[facility] SERVICESCLIA [id number] [address] STATES [facility] Urea nitrogen [Mass/Vol] 29 mg/dL High 9-24 [facility] Comment on above: Order Comment: Shira feldman Type: BLOOD SPECIMENOrdering Facility: [facility] Address: [address] [place] [address] Performed By: #### 2 4321-2, 2776-05, ####[facility] LABORATORYCLIA [id number] [place] [address] [place] CBC W Auto Differential pane l (Bld)on 08-06-2021 Basophils (Bld) [#/Vol] 0.03 10*3/uL Normal <0.11 [facility] Comment on above: Order Comment: Speci men Type: BLOOD SPECIMENOrdering Facility: [facility] Address: [address] [place] [address] Performed By: #### 5 7021-8 ####[facility]ORATORYCLIA [id number] [address] [place] Basophils/100 WBC (Bld) 0.3 % Normal [facility] Comment on above: Order Comment: Speci men Type: BLOOD SPECIMENOrdering Facility: [facility] Address: [address] [place] [address] Performed By: #### 5 7021-8 ####[facility]ORATORYCLIA [id number] [address] OF [facility] Differential cell count method Nom (Bld) Auto Normal [facility] Comment on above: Order Comment: Speci men Type: BLOOD SPECIMENOrdering Facility: [facility] Address: [address] [place] [address] Performed By: #### 5 7021-8 ####[facility] LABORATORYCLIA [id number] [address] [place] Eosinophils (Bld) [#/Vol] 0.18 10*3/uL Normal <0.46 [facility] Comment on above: Order Comment: Speci men Type: BLOOD SPECIMENOrdering Facility: [facility] Address: [address] [place] [address] Performed By: #### 5 7021-8 ####[facility]ORATORYCLIA [id number] [address] [place] Eosinophils/100 WBC (Bld) 1.6 % Normal [facility] Comment on above: Order Comment: Speci men Type: BLOOD SPECIMENOrdering Facility: [facility] Address: [address] [place] [address] Performed By: #### 5 7021-8 ####[facility]ORATORYCLIA [id number] [place] [address] Erythrocyte distribution width (RBC) [Ratio] 17.9 % High 11.5-15.0 [facility] Comment on above: Order Comment: Speci men Type: BLOOD SPECIMENOrdering Facility: [facility] Address: [address] [place] [address] Performed By: #### 5 7021-8 ####[facility] LABORATORYCLIA [id number] [address] OF [facility] Hematocrit (Bld) [Volume fraction] 27.6 % Low 39.0-51.0 [facility] Comment on above: Order Comment: Speci men Type: BLOOD SPECIMENOrdering Facility: [facility] Address: [address] [place] [address] Performed By: #### 5 7021-8 ####[facility] LABORATORYCLIA [id number] [address] OF [facility] Hemoglobin (Bld) [Mass/Vol] 8.5 g/dL Low 13.0-17.0 [facility] Comment on above: Order Comment: Speci men Type: BLOOD SPECIMENOrdering Facility: [facility] Address: [address] [place] [address] Performed By: #### 5 7021-8 ####[facility] LABORATORYCLIA [id number] [address] OF [facility] IMMATURE GRAN % 0.6 % Normal [facility] Comment on above: Order Comment: Speci men Type: BLOOD SPECIMENOrdering Facility: [facility] Address: [address] [place] [address] Performed By: #### 5 7021-8 ####[facility] LABORATORYCLIA [id number] [address] IMMATURE GRAN ABS 0.07 k/uL Normal <0.10 [facility] Comment on above: Order Comment: Speci men Type: BLOOD SPECIMENOrdering Facility: [facility] Address: [address] [place] [address] Performed By: #### 5 7021-8 ####[facility] LABORATORYCLIA [id number] [address] [place] Lymphocytes (Bld) [#/Vol] 1.81 10*3/uL Normal 1.00-4.00 [facility] Comment on above: Order Comment: Speci men Type: BLOOD SPECIMENOrdering Facility: [facility] Address: [address] [place] [address] Performed By: #### 5 7021-8 ####[facility] LABORATORYCLIA [id number] [address] Lymphocytes/100 WBC (Bld) 15.7 % Normal [facility] Comment on above: Order Comment: Speci men Type: BLOOD SPECIMENOrdering Facility: [facility] Address: [address] [place] [address] Performed By: #### 5 7021-8 ####[facility] LABORATORYCLIA [id number] [address] STATES [facility] MCH (RBC) [Entitic mass] 28.6 pg Normal 26.0-34.0 [facility] Comment on above: Order Comment: Speci men Type: BLOOD SPECIMENOrdering Facility: [facility] Address: [address] [place] [address] Performed By: #### 5 7021-8 ####[facility] LABORATORYCLIA [id number] [address] [place] MCHC (RBC) [Mass/Vol] 30.8 g/dL Normal 30.5-36.0 [facility] Comment on above: Order Comment: Speci men Type: BLOOD SPECIMENOrdering Facility: [facility] Address: [address] [place] [address] Performed By: #### 5 7021-8 ####[facility]ORATORYCLIA [id number] [address] [place] MCV (RBC) [Entitic vol] 92.9 fL Normal 80.0-100.0 [facility] Comment on above: Order Comment: Speci men Type: BLOOD SPECIMENOrdering Facility: [facility] Address: [address] [place] [address] Performed By: #### 5 7021-8 ####[facility]ORATORYCLIA [id number] [address] [place] Monocytes (Bld) [#/Vol] 0.63 10*3/uL Normal <0.87 [facility] Comment on above: Order Comment: Speci men Type: BLOOD SPECIMENOrdering Facility: [facility] Address: [address] [place] [address] Performed By: #### 5 7021-8 ####[facility] LABORATORYCLIA [id number] [address] [place] Monocytes/100 WBC (Bld) 5.5 % Normal [facility] Comment on above: Order Comment: Speci men Type: BLOOD SPECIMENOrdering Facility: [facility] Address: [address] [place] [address] Performed By: #### 5 7021-8 ####[facility] LABORATORYCLIA [id number] [place] [address] [place] Neutrophils (Bld) [#/Vol] 8.78 10*3/uL High 1.45-7.50 [facility] Comment on above: Order Comment: Speci men Type: BLOOD SPECIMENOrdering Facility: [facility] Address: [address] [place] [address] Performed By: #### 5 7021-8 ####[facility]ORATORYCLIA [id number] [address] [place] Neutrophils/100 WBC (Bld) 76.3 % Normal [facility] Comment on above: Order Comment: Speci men Type: BLOOD SPECIMENOrdering Facility: [facility] Address: [address] [place] [address] Performed By: #### 5 7021-8 ####[facility]ORATORYCLIA [id number] [place] [address] [place] Nucleated RBC (Bld) [#/Vol] 10*3/uL Normal <0.01 [facility] Comment on above: Order Comment: Speci men Type: BLOOD SPECIMENOrdering Facility: [facility] Address: [address] [place] [address] Performed By: #### 5 7021-8 ####[facility]ORATORYCLIA [id number] [address] [place] Nucleated RBC/100 WBC (Bld) [Ratio] 0.0 /100 WBC Normal [facility] Comment on above: Order Comment: Speci men Type: BLOOD SPECIMENOrdering Facility: [facility] Address: [address] [place] [address] Performed By: #### 5 7021-8 ####[facility]ORATORYCLIA [id number] [address] [place] Platelet mean volume (Bld) [Entitic vol] 9.9 fL Normal 9.0-12.7 [facility] Comment on above: Order Comment: Speci men Type: BLOOD SPECIMENOrdering Facility: [facility] Address: [address] [place] [address] Performed By: #### 5 7021-8 ####[facility]ORATORYCLIA [id number] [address] [place] Platelets (Bld) [#/Vol] 230 10*3/uL Normal 150-400 [facility] Comment on above: Order Comment: Speci men Type: BLOOD SPECIMENOrdering Facility: [facility] Address: [address] [place], [place] [address] Performed By: #### 5 7021-8 ####[facility]ORATORYCLIA [id number] [address] [place] RBC (Bld) [#/Vol] 2.97 10*6/uL Low 4.20-6.00 [facility] Comment on above: Order Comment: Speci men Type: BLOOD SPECIMENOrdering Facility: [facility] Address: [address] [place] [address] Performed By: #### 5 7021-8 ####[facility]ORATORYCLIA [id number] [address] [place] WBC (Bld) [#/Vol] 11.50 10*3/uL High 3.70-11.00 [facility] Comment on above: Order Comment: Speci men Type: BLOOD SPECIMENOrdering Facility: [facility] Address: [address] [place] [address] Performed By: #### 5 7021-8 ####[facility] LABORATORYCLIA [id number] [address] OF [facility] CONSULT PROGon 08-06-2021 CONSULT PROG Normal [facility] Magnesium SerPl-mCncon 08-06 Magnesium [Mass/Vol] 1.9 mg/dL Normal 1.7-2.3 [facility] Comment on above: Order Comment: Speci men Type: BLOOD SPECIMENOrdering Facility: [facility] Address: [address] [place] [address] Performed By: #### 2 4321-2, 2777-1, ####[facility]ORATORYCLIA [id number] [address] NURSING PROGon 08-06-2021 NURSING PROG Normal [facility] OPERATIVE NOon 08-06-2021 OPERATIVE NO Normal [facility] Phosphate SerPl-mCncon 08-06 Phosphate [Mass/Vol] 4.2 mg/dL Normal 2.7-4.8 [facility] Comment on above: Order Comment: Speci men Type: BLOOD SPECIMENOrdering Facility: [facility] Address: [address] [place] [address] Performed By: #### 2 4321-2, 2777-1, 99161-1 ####[facility]ORATORYCLIA [id number] [address] [place] ALLIED HEALTHon 08-05-2021 ALLIED HEALTH Normal [facility] ALLIED HEALTH Normal [facility] ANES PRE-OPon 08-05-2021 ANES PRE-OP Normal [facility] BRIEF OP NOTon 08-05-2021 BRIEF OP NOT Normal [facility] Bacteria Spec Resp Culton Bacteria identified Respiratory culture Nom (Unsp spec) CULTURE, RESPIRATORY: Few Normal respiratory chris present ORGANISM ID: 1 Few Proteus species Insignificant colony count. No further workup. GRAM STAIN: No organisms seen Few Polymorphonuclear leukocytes Few Epithelial cells Abnormal [facility] Comment on above: Performed By: #### 3 2355-0 ####[facility]ORATORYCLIA [id number] [place] [address] [place] Bacteria Ur Culton 2 Bacteria identified Cx Nom (U) CULTURE, URINE: No growth (<1,000 CFU/ml) Normal [facility] Comment on above: Performed By: #### 6 30-4 ####[facility]ORATORYCLIA [id number] [place] [address] [place] Basic metabolic 2000 panelon 08-05-2021 Anion gap [Moles/Vol] 7 mmol/L Low 9-18 [facility] Comment on above: Order Comment: Speci men Type: BLOOD SPECIMENOrdering Facility: [facility] Address: [address] [place] [address] Performed By: #### 2 4321-2 ####[facility] LABORATORYCLIA [id number] [place] [address] [place] Calcium [Mass/Vol] 9.5 mg/dL Normal 8.5-10.2 [facility] Comment on above: Order Comment: Speci men Type: BLOOD SPECIMENOrdering Facility: [facility] Address: [address] [address] Performed By: #### 2 4321-2 ####[facility] LABORATORYCLIA [id number] [address] [place] Chloride [Moles/Vol] 97 mmol/L Normal 97-105 [facility] Comment on above: Order Comment: Speci men Type: BLOOD SPECIMENOrdering Facility: [facility] Address: [address] [place] [address] Performed By: #### 2 4321-2 ####[facility] LABORATORYCLIA [id number] [address] [place] CO2 [Moles/Vol] 30 mmol/L Normal 22-30 [facility] Comment on above: Order Comment: Speci men Type: BLOOD SPECIMENOrdering Facility: [facility] Address: [address] [place] [address] Performed By: #### 2 4321-2 ####[facility] LABORATORYCLIA [id number] [address] [place] Creatinine [Mass/Vol] 0.61 mg/dL Low 0.73-1.22 [facility] Comment on above: Order Comment: Speci men Type: BLOOD SPECIMENOrdering Facility: [facility] Address: [address] [place] [address] Performed By: #### 2 4321-2 ####[facility]PITALIA [id number] [address] ESTIMATED GLOMERULAR FILTRATION RATE 104 mL/min/1.73m??? Normal >=60 [facility] Comment on above: Order Comment: Speci men Type: BLOOD SPECIMENOrdering Facility: [facility] Address: [address] [place] [address] Result Comment: Luzmaria mated Glomerular Filtration Rate [...] actual GFR. Performed By: #### 2 4321-2 ####[facility] LABORATORYCLIA [id number] [address] OF [facility] Glucose [Mass/Vol] 124 mg/dL High 74-99 [facility] Comment on above: Order Comment: Speci men Type: BLOOD SPECIMENOrdering Facility: [facility] Address: [address] [address] Result Comment: The [place] [employer] (ADA) provides guidance for cutoff [...] Standards of Medical Care in Diabetes 2016, [place] [employer]. Diabetes Care. 2016.39(Suppl 1). Performed By: #### 2 4321-2 ####[facility] LABORATORYCLIA [id number] [place] [address] [place] Potassium [Moles/Vol] 4.9 mmol/L Normal 3.7-5.1 [facility] Comment on above: Order Comment: Speci men Type: BLOOD SPECIMENOrdering Facility: [facility] Address: [address] [address] Performed By: #### 2 4321-2 ####[facility] LABORATORYCLIA [id number] [place] [address] [place] Sodium [Moles/Vol] 134 mmol/L Low 136-144 [facility] Comment on above: Order Comment: Speci men Type: BLOOD SPECIMENOrdering Facility: [facility] Address: [address] [address] Performed By: #### 2 4321-2 ####[facility] LABORATORYCLIA [id number] [place] [address] [place] Urea nitrogen [Mass/Vol] 40 mg/dL High 9-24 [facility] Comment on above: Order Comment: Speci men Type: BLOOD SPECIMENOrdering Facility: [facility] Address: [address] [address] Performed By: #### 2 4321-2 ####[facility]ORATORYCLIA [id number] [place] [address] [place] CBC W Auto Differential pane l (Bld)on 08-05-2021 Basophils (Bld) [#/Vol] 0.04 10*3/uL Normal <0.11 [facility] Comment on above: Order Comment: Speci men Type: BLOOD SPECIMENOrdering Facility: [facility] Address: [address] [place] [address] Performed By: #### 5 7021-8 ####[facility] LABORATORYCLIA [id number] [address] Basophils/100 WBC (Bld) 0.3 % Normal [facility] Comment on above: Order Comment: Speci men Type: BLOOD SPECIMENOrdering Facility: [facility] Address: [address] [place] [address] Performed By: #### 5 7021-8 ####[facility] LABORATORYCLIA [id number] [address] Differential cell count method Nom (Bld) Auto Normal [facility] Comment on above: Order Comment: Speci men Type: BLOOD SPECIMENOrdering Facility: [facility] Address: [address] [place] [address] Performed By: #### 5 7021-8 ####[facility] LABORATORYCLIA [id number] [address] [place] Eosinophils (Bld) [#/Vol] 0.42 10*3/uL Normal <0.46 [facility] Comment on above: Order Comment: Speci men Type: BLOOD SPECIMENOrdering Facility: [facility] Address: [address] [place] [address] Performed By: #### 5 7021-8 ####[facility] LABORATORYCLIA [id number] [address] Eosinophils/100 WBC (Bld) 3.6 % Normal [facility] [facility] Comment on above: Order Comment: Speci men Type: BLOOD SPECIMENOrdering Facility: [facility] Address: [address] [place] [address] Performed By: #### 5 7021-8 ####[facility] LABORATORYCLIA [id number] [address] Erythrocyte distribution width (RBC) [Ratio] 17.9 % High 11.5-15.0 [facility] Comment on above: Order Comment: Speci men Type: BLOOD SPECIMENOrdering Facility: [facility] Address: [address] [place] [address] Performed By: #### 5 7021-8 ####[facility] LABORATORYCLIA [id number] [address] Hematocrit (Bld) [Volume fraction] 30.8 % Low 39.0-51.0 [facility] Comment on above: Order Comment: Speci men Type: BLOOD SPECIMENOrdering Facility: [facility] Address: [address] [place] [address] Performed By: #### 5 7021-8 ####[facility] LABORATORYCLIA [id number] [address] OF [facility] Hemoglobin (Bld) [Mass/Vol] 9.6 g/dL Low 13.0-17.0 [facility] Comment on above: Order Comment: Speci men Type: BLOOD SPECIMENOrdering Facility: [facility] Address: [address] [place] [address] Performed By: #### 5 7021-8 ####[facility] LABORATORYCLIA [id number] [address] IMMATURE GRAN % 0.5 % Normal [facility] Comment on above: Order Comment: Speci men Type: BLOOD SPECIMENOrdering Facility: [facility] Address: [address] [place] [address] Performed By: #### 5 7021-8 ####[facility] LABORATORYCLIA [id number] [address] IMMATURE GRAN ABS 0.06 k/uL Normal <0.10 [facility] Comment on above: Order Comment: Speci men Type: BLOOD SPECIMENOrdering Facility: [facility] Address: [address] [place] [address] Performed By: #### 5 7021-8 ####[facility] LABORATORYCLIA [id number] [address] [place] Lymphocytes (Bld) [#/Vol] 2.17 10*3/uL Normal 1.00-4.00 [facility] Comment on above: Order Comment: Speci men Type: BLOOD SPECIMENOrdering Facility: [facility] Address: [address] [place] [address] Performed By: #### 5 7021-8 ####[facility] LABORATORYCLIA [id number] [address] Lymphocytes/100 WBC (Bld) 18.7 % Normal [facility] Comment on above: Order Comment: Speci men Type: BLOOD SPECIMENOrdering Facility: [facility] Address: [address] [place] [address] Performed By: #### 5 7021-8 ####[facility] LABORATORYCLIA [id number] [address] [place] MCH (RBC) [Entitic mass] 28.9 pg Normal 26.0-34.0 [facility] Comment on above: Order Comment: Speci men Type: BLOOD SPECIMENOrdering Facility: [facility] Address: [address] [place] [address] Performed By: #### 5 7021-8 ####[facility] LABORATORYCLIA [id number] [address] [place] MCHC (RBC) [Mass/Vol] 31.2 g/dL Normal 30.5-36.0 [facility] Comment on above: Order Comment: Speci men Type: BLOOD SPECIMENOrdering Facility: [facility] Address: [address] [place] [address] Performed By: #### 5 7021-8 ####[facility] LABORATORYCLIA [id number] [place] [address] [place] MCV (RBC) [Entitic vol] 92.8 fL Normal 80.0-100.0 [facility] Comment on above: Order Comment: Speci men Type: BLOOD SPECIMENOrdering Facility: [facility] Address: [address] [place] [address] Performed By: #### 5 7021-8 ####[facility] LABORATORYCLIA [id number] [place] [address] [place] Monocytes (Bld) [#/Vol] 0.71 10*3/uL Normal <0.87 [facility] Comment on above: Order Comment: Speci men Type: BLOOD SPECIMENOrdering Facility: [facility] Address: [address] [place] [address] Performed By: #### 5 7021-8 ####[facility] LABORATORYCLIA [id number] [address] [place] Monocytes/100 WBC (Bld) 6.1 % Normal [facility] Comment on above: Order Comment: Speci men Type: BLOOD SPECIMENOrdering Facility: [facility] Address: [address] [place] [address] Performed By: #### 5 7021-8 ####[facility] LABORATORYCLIA [id number] [address] [place] Neutrophils (Bld) [#/Vol] 8.19 10*3/uL High 1.45-7.50 [facility] Comment on above: Order Comment: Speci men Type: BLOOD SPECIMENOrdering Facility: [facility] Address: [address] [place] [address] Performed By: #### 5 7021-8 ####[facility] LABORATORYCLIA [id number] [address] [place] Neutrophils/100 WBC (Bld) 70.8 % Normal [facility] Comment on above: Order Comment: Speci men Type: BLOOD SPECIMENOrdering Facility: [facility] Address: [address] [place], [place] [address] Performed By: #### 5 7021-8 ####[facility] LABORATORYCLIA [id number] [address] Nucleated RBC (Bld) [#/Vol] 10*3/uL Normal <0.01 [facility] Comment on above: Order Comment: Speci men Type: BLOOD SPECIMENOrdering Facility: [facility] Address: [address] [place] [address] Performed By: #### 5 7021-8 ####[facility] LABORATORYCLIA [id number] [address] OF [facility] Nucleated RBC/100 WBC (Bld) [Ratio] 0.0 /100 WBC Normal [facility] Comment on above: Order Comment: Speci men Type: BLOOD SPECIMENOrdering Facility: [facility] Address: [address] [place] [address] Performed By: #### 5 7021-8 ####[facility] LABORATORYCLIA [id number] [address] Platelet mean volume (Bld) [Entitic vol] 9.6 fL Normal 9.0-12.7 [facility] Comment on above: Order Comment: Speci men Type: BLOOD SPECIMENOrdering Facility: [facility] Address: [address] [place] [address] Performed By: #### 5 7021-8 ####[facility] LABORATORYCLIA [id number] [address] [place] Platelets (Bld) [#/Vol] 339 10*3/uL Normal 150-400 [facility] Comment on above: Order Comment: Speci men Type: BLOOD SPECIMENOrdering Facility: [facility] Address: [address] [place] [address] Performed By: #### 5 7021-8 ####[facility]ORATORYCLIA [id number] [address] OF [place] RBC (Bld) [#/Vol] 3.32 10*6/uL Low 4.20-6.00 [facility] Comment on above: Order Comment: Speci men Type: BLOOD SPECIMENOrdering Facility: [facility] Address: [address] [place] [address] Performed By: #### 5 7021-8 ####[facility] LABORATORYCLIA [id number] [address] [place] WBC (Bld) [#/Vol] 11.59 10*3/uL High 3.70-11.00 [facility] Comment on above: Order Comment: Speci men Type: BLOOD SPECIMENOrdering Facility: [facility] Address: [address] [place] [address] Performed By: #### 5 7021-8 ####[facility] LABORATORYCLIA [id number] [address] [place] CT BRAIN WO IVCONon 08-06-[address] BRAIN WO IVCON Normal [facility] Magnesium SerPl-mCncon 08-05 Magnesium [Mass/Vol] 2.2 mg/dL Normal 1.7-2.3 [facility] Comment on above: Order Comment: Speci men Type: BLOOD SPECIMENOrdering Facility: [facility] Address: [address] [place] [address] Performed By: #### 1 9123-9, 2777-1 ####[facility] LABORATORYCLIA [id number] [address] [place] NURSING PROGon 08-05-2021 NURSING PROG Normal [facility] NURSING PROG Normal [facility] NUTRITIONon 08-05-2021 NUTRITION Normal [facility] OPERATIVE NOon 08-05-2021 OPERATIVE NO Normal [facility] Phosphate SerPl-mCncon 08-05 Phosphate [Mass/Vol] 4.6 mg/dL Normal 2.7-4.8 [facility] Comment on above: Order Comment: Speci men Type: BLOOD SPECIMENOrdering Facility: [facility] Address: [address] [place] [address] Performed By: #### 1 9123-9, 2777-1 ####[facility] LABORATORYCLIA [id number] [address] OF [facility] THERAPY NTon 08-05-2021 THERAPY NT Normal [facility] THERAPY NT Normal [facility] Urinalysis complete panel (U )on 08-05-2021 Bilirubin Ql (U) Negative Normal Negative [facility] Comment on above: Order Comment: Speci men Type: URINE SPECIMENOrdering Facility: [facility] Address: [address] [place] [address] Performed By: #### 2 4356-8 ####[facility] LABORATORYCLIA [id number] [address] Clarity (Unsp spec) Clear Normal Clear [facility] Comment on above: Order Comment: Speci men Type: URINE SPECIMENOrdering Facility: [facility] Address: [address] [place] [address] Performed By: #### 2 4356-8 ####[facility] LABORATORYCLIA [id number] [address] Color (U) Light Yellow Normal yellow [facility] Comment on above: Order Comment: Speci men Type: URINE SPECIMENOrdering Facility: [facility] Address: [address] [place] [address] Performed By: #### 2 4356-8 ####[facility] LABORATORYCLIA [id number] [address] Epithelial cells LM.HPF (Urine sed) [#/Area] Few Abnormal None Seen [facility] Comment on above: Order Comment: Speci men Type: URINE SPECIMENOrdering Facility: [facility] Address: [address] [place] [address] Performed By: #### 2 4356-8 ####[facility] LABORATORYCLIA [id number] [address] OF [place] Glucose Test strip (U) [Mass/Vol] Negative Normal Negative [facility] Comment on above: Order Comment: Speci men Type: URINE SPECIMENOrdering Facility: [facility] Address: [address] [place] [address] Performed By: #### 2 4356-8 ####[facility]ORATORYCLIA [id number] [address] STATES [facility] Hemoglobin Ql (U) Negative Normal Negative [facility] Comment on above: Order Comment: Speci men Type: URINE SPECIMENOrdering Facility: [facility] Address: [address] [place] [address] Performed By: #### 2 4356-8 ####[facility] LABORATORYCLIA [id number] [address] [place] Hyaline casts (Urine sed) [#/Area] 1-3 /LPF Abnormal 0 /LPF [facility] Comment on above: Order Comment: Speci men Type: URINE SPECIMENOrdering Facility: [facility] Address: [address] [place] [address] Performed By: #### 2 4356-8 ####[facility] LABORATORYCLIA [id number] [address] [place] Ketones Ql (U) Negative Normal Negative [facility] Comment on above: Order Comment: Speci men Type: URINE SPECIMENOrdering Facility: [facility] Address: [address] [place] [address] Performed By: #### 2 4356-8 ####[facility]ORATORYCLIA [id number] [address] STATES [facility] Leukocyte esterase Test strip Ql (U) Negative Normal Negative [facility] Comment on above: Order Comment: Speci men Type: URINE SPECIMENOrdering Facility: [facility] Address: [address] [place] [address] Performed By: #### 2 4356-8 ####[facility]ORATORYCLIA [id number] [place] [address] [place] Nitrite Ql (U) Negative Normal Negative [facility] Comment on above: Order Comment: Speci men Type: URINE SPECIMENOrdering Facility: [facility] Address: [address] [place] [address] Performed By: #### 2 4356-8 ####[facility]ORATORYCLIA [id number] [address] pH (U) 6.0 [pH] Normal 5.0-8.0 [facility] Comment on above: Order Comment: Speci men Type: URINE SPECIMENOrdering Facility: [facility] Address: [address] [place] [address] Performed By: #### 2 4356-8 ####[facility]ORATORYCLIA [id number] [address] Protein (U) [Mass/Vol] Negative Normal Negative [facility] Comment on above: Order Comment: Speci men Type: URINE SPECIMENOrdering Facility: [facility] Address: [address] [place] [address] Performed By: #### 2 4356-8 ####[facility] LABORATORYCLIA [id number] [address] STATES [facility] RBC LM.HPF (Urine sed) [#/Area] 0-3 /HPF Normal 0-3 /HPF [facility] Comment on above: Order Comment: Speci men Type: URINE SPECIMENOrdering Facility: [facility] Address: [address] [place] [address] Performed By: #### 2 4356-8 ####[facility] LABORATORYCLIA [id number] [address] Specific gravity (U) [Rel density] 1.015 Normal 1.005-1.030 [facility] Comment on above: Order Comment: Speci men Type: URINE SPECIMENOrdering Facility: [facility] Address: [address] [place] [address] Performed By: #### 2 4356-8 ####[facility] LABORATORYCLIA [id number] [address] Urobilinogen Ql (U) Normal Normal Negative [facility] Comment on above: Order Comment: Speci men Type: URINE SPECIMENOrdering Facility: [facility] Address: [address] [place] [address] Performed By: #### 2 4356-8 ####[facility] LABORATORYCLIA [id number] [address] STATES [facility] WBC LM.HPF (Urine sed) [#/Area] 0-5 /HPF Normal 0-5 /HPF [facility] Comment on above: Order Comment: Speci men Type: URINE SPECIMENOrdering Facility: [facility] Address: [address] [place] [address] Performed By: #### 2 4356-8 ####[facility] LABORATORYCLIA [id number] [address] XR ABDOMEN 1V SUPINEon 08-05 XR ABDOMEN 1V SUPINE Normal [facility] XR CHEST 1V FRONTALon 2021 XR CHEST 1V FRONTAL Normal [facility] XR CHEST 1V FRONTAL Normal [facility] XR NECK SOFT TISSUE 2V AP/LA Ton 08-05-2021 XR NECK SOFT TISSUE 2V AP/LAT Normal [facility] XR SKULL 2V AP/LATon 022 XR SKULL 2V AP/LAT Normal [facility] ALLIED HEALTHon 08-04-2021 ALLIED HEALTH Normal [facility] Bacteria Bld Culton 08-05-19 22 Bacteria identified Cx Nom (Bld) CULTURE, BLOOD: No growth 5 days Normal [facility] Comment on above: Performed By: #### 6 00-7 ####[facility] LABORATORYCLIA [id number] [address] OF [facility] Bacteria identified Cx Nom (Bld) CULTURE, BLOOD: No growth 5 days Normal [facility] Comment on above: Performed By: #### 6 00-7 ####[facility] LABORATORYCLIA [id number] [address] [place] CBC W Auto Differential pane l (Bld)on 08-04-2021 Basophils (Bld) [#/Vol] 0.05 10*3/uL Normal <0.11 [facility] Comment on above: Order Comment: Speci men Type: BLOOD SPECIMENOrdering Facility: [facility] Address: [address] [place] [address] Performed By: #### 5 7021-8 ####[facility]ORATORYCLIA [id number] [address] [place] Basophils/100 WBC (Bld) 0.4 % Normal [facility] Comment on above: Order Comment: Speci men Type: BLOOD SPECIMENOrdering Facility: [facility] Address: [address] [place] [address] Performed By: #### 5 7021-8 ####[facility]ORATORYCLIA [id number] [address] [place] Differential cell count method Nom (Bld) Auto Normal [facility] Comment on above: Order Comment: Speci men Type: BLOOD SPECIMENOrdering Facility: [facility] Address: [address] [place] [address] Performed By: #### 5 7021-8 ####[facility]ORATORYCLIA [id number] [place] [address] [place] Eosinophils (Bld) [#/Vol] 0.21 10*3/uL Normal <0.46 [facility] Comment on above: Order Comment: Speci men Type: BLOOD SPECIMENOrdering Facility: [facility] Address: [address] [place] [address] Performed By: #### 5 7021-8 ####[facility]ORATORYCLIA [id number] [address] [place] Eosinophils/100 WBC (Bld) 1.7 % Normal [facility] Comment on above: Order Comment: Speci men Type: BLOOD SPECIMENOrdering Facility: [facility] Address: [address] [place] [address] Performed By: #### 5 7021-8 ####[facility]ATORYCLIA [id number] [address] Erythrocyte distribution width (RBC) [Ratio] 18.1 % High 11.5-15.0 [facility] Comment on above: Order Comment: Speci men Type: BLOOD SPECIMENOrdering Facility: [facility] Address: [address] [place] [address] Performed By: #### 5 7021-8 ####[facility]ORATORYCLIA [id number] [address] Hematocrit (Bld) [Volume fraction] 32.0 % Low 39.0-51.0 [facility] Comment on above: Order Comment: Speci men Type: BLOOD SPECIMENOrdering Facility: [facility] Address: [address] [place] [address] Performed By: #### 5 7021-8 ####[facility]ORATORYCLIA [id number] [address] Hemoglobin (Bld) [Mass/Vol] 10.0 g/dL Low 13.0-17.0 [facility] Comment on above: Order Comment: Speci men Type: BLOOD SPECIMENOrdering Facility: [facility] Address: [address] [place] [address] Performed By: #### 5 7021-8 ####[facility] LABORATORYCLIA [id number] [address] IMMATURE GRAN % 0.6 % Normal [facility] Comment on above: Order Comment: Speci men Type: BLOOD SPECIMENOrdering Facility: [facility] Address: [address] [place] [address] Performed By: #### 5 7021-8 ####[facility]ORATORYCLIA [id number] [address] IMMATURE GRAN ABS 0.08 k/uL Normal <0.10 [facility] Comment on above: Order Comment: Speci men Type: BLOOD SPECIMENOrdering Facility: [facility] Address: [address] [place] [address] Performed By: #### 5 7021-8 ####[facility] LABORATORYCLIA [id number] [address] Lymphocytes (Bld) [#/Vol] 2.55 10*3/uL Normal 1.00-4.00 [facility] Comment on above: Order Comment: Speci men Type: BLOOD SPECIMENOrdering Facility: [facility] Address: [address] [place] [address] Performed By: #### 5 7021-8 ####[facility]ORATORYCLIA [id number] [address] Lymphocytes/100 WBC (Bld) 20.5 % Normal [facility] Comment on above: Order Comment: Speci men Type: BLOOD SPECIMENOrdering Facility: [facility] Address: [address] [place] [address] Performed By: #### 5 7021-8 ####[facility] LABORATORYCLIA [id number] [address] MCH (RBC) [Entitic mass] 28.9 pg Normal 26.0-34.0 [facility] Comment on above: Order Comment: Speci men Type: BLOOD SPECIMENOrdering Facility: [facility] Address: [address] [place] [address] Performed By: #### 5 7021-8 ####[facility] LABORATORYCLIA [id number] [address] MCHC (RBC) [Mass/Vol] 31.3 g/dL Normal 30.5-36.0 [facility] Comment on above: Order Comment: Speci men Type: BLOOD SPECIMENOrdering Facility: [facility] Address: [address] [place] [address] Performed By: #### 5 7021-8 ####[facility] LABORATORYCLIA [id number] [address] OF [facility] MCV (RBC) [Entitic vol] 92.5 fL Normal 80.0-100.0 [facility] Comment on above: Order Comment: Speci men Type: BLOOD SPECIMENOrdering Facility: [facility] Address: [address] [address] Performed By: #### 5 7021-8 ####[facility]ORATORYCLIA [id number] [address] [place] Monocytes (Bld) [#/Vol] 0.85 10*3/uL Normal <0.87 [facility] Comment on above: Order Comment: Speci men Type: BLOOD SPECIMENOrdering Facility: [facility] Address: [address] [place] [address] Performed By: #### 5 7021-8 ####[facility]ORATORYCLIA [id number] [address] Monocytes/100 WBC (Bld) 6.8 % Normal [facility] Comment on above: Order Comment: Speci men Type: BLOOD SPECIMENOrdering Facility: [facility] Address: [address] [place] [address] Performed By: #### 5 7021-8 ####[facility] LABORATORYCLIA [id number] [address] [place] Neutrophils (Bld) [#/Vol] 8.68 10*3/uL High 1.45-7.50 [facility] Comment on above: Order Comment: Speci men Type: BLOOD SPECIMENOrdering Facility: [facility] Address: [address] [place] [address] Performed By: #### 5 7021-8 ####[facility]ORATORYCLIA [id number] [address] [place] Neutrophils/100 WBC (Bld) 70.0 % Normal [facility] Comment on above: Order Comment: Speci men Type: BLOOD SPECIMENOrdering Facility: [facility] Address: [address] [place] [address] Performed By: #### 5 7021-8 ####[facility]ORATORYCLIA [id number] [place] [address] [place] Nucleated RBC (Bld) [#/Vol] 10*3/uL Normal <0.01 [facility] Comment on above: Order Comment: Speci men Type: BLOOD SPECIMENOrdering Facility: [facility] Address: [address] [place] [address] Performed By: #### 5 7021-8 ####[facility] LABORATORYCLIA [id number] [address] [place] Nucleated RBC/100 WBC (Bld) [Ratio] 0.0 /100 WBC Normal [facility] Comment on above: Order Comment: Speci men Type: BLOOD SPECIMENOrdering Facility: [facility] Address: [address] [place] [address] Performed By: #### 5 7021-8 ####[facility] LABORATORYCLIA [id number] [address] [place] Platelet mean volume (Bld) [Entitic vol] 10.0 fL Normal 9.0-12.7 [facility] Comment on above: Order Comment: Speci men Type: BLOOD SPECIMENOrdering Facility: [facility] Address: [address] [place] [address] Performed By: #### 5 7021-8 ####[facility] LABORATORYCLIA [id number] [address] [place] Platelets (Bld) [#/Vol] 393 10*3/uL Normal 150-400 [facility] Comment on above: Order Comment: Speci men Type: BLOOD SPECIMENOrdering Facility: [facility] Address: [address] Performed By: #### 5 7021-8 ####[facility] LABORATORYCLIA [id number] [address] [place] RBC (Bld) [#/Vol] 3.46 10*6/uL Low 4.20-6.00 [facility] Comment on above: Order Comment: Speci men Type: BLOOD SPECIMENOrdering Facility: [facility] Address: [address] [place] [address] Performed By: #### 5 7021-8 ####[facility] LABORATORYCLIA [id number] [address] WBC (Bld) [#/Vol] 12.42 10*3/uL High 3.70-11.00 [facility] Comment on above: Order Comment: Speci men Type: BLOOD SPECIMENOrdering Facility: [facility] Address: [address] [place] [address] Performed By: #### 5 7021-8 ####[facility] LABORATORYCLIA [id number] [address] OF [facility] CT BRAIN WO IVCONon 08-05-[address] BRAIN WO IVCON Normal [facility] Lactate (Bld) [Moles/Vol]on 08-04-2021 Lactate [Moles/Vol] 1.4 mmol/L Normal 0.5-2.2 [facility] Comment on above: Order Comment: Speci men Type: BLOOD SPECIMENOrdering Facility: [facility] Address: [address] [place] [address] Performed By: #### 3 2693-4 ####[facility] LABORATORYCLIA [id number] [address] PROCALCITONIN (LAB)on 2021 Procalcitonin [Mass/Vol] 0.08 ng/mL Normal <0.09 [facility] Comment on above: Order Comment: Speci men Type: BLOOD SPECIMENOrdering Facility: [facility] Address: [address] [place] [address] Result Comment: For a guided interpretation of test results, please visit the Change in Procalcitonin Calculator, [email or web address]. Performed By: #### P ROCAL ####[facility] LABORATORYCLIA [id number] [address] Prealbumin [Mass/Vol]on 07-07 Prealbumin Nephelometry [Mass/Vol] 35 mg/dL Normal 17-36 [facility] Comment on above: Order Comment: Speci men Type: BLOOD SPECIMENOrdering Facility: [facility] Address: [address] [place] [address] Performed By: #### 1 4338-8 ####[facility] LABORATORYCLIA [id number] [address] SARS-CoV-2 RNA Resp Ql MEGAN+p robeon 08-04-2021 SARS-CoV-2 (COVID-19) RNA MEGAN+probe Ql (Resp) COVID 19 RESULT: SARS-CoV-2 (Agent of COVID-19) Not Detected by RT-PCR or equivalent method. This test has been authorized by FDA under an Emergency Use Authorization (EUA). Normal [facility] Comment on above: Performed By: #### 9 4500-6 ####[facility] LABORATORYCLIA [id number] [address] STATES OF [facility] TYPE AND SCREENon 08-04-2021 ABO O Normal [facility] Comment on above: Order Comment: Speci men Type: BLOOD SPECIMENOrdering Facility: [facility] Address: [address] [place] [address] Performed By: #### T SCR ####[facility] BLOOD BANKCLIA [id number] [address] HISTORICAL AB SCR STATUS Negative [facility] Comment on above: Order Comment: Speci men Type: BLOOD SPECIMENOrdering Facility: [facility] Address: [address] [place] [address] Performed By: #### T SCR ####[facility] BLOOD BANKCLIA [id number] [address] [place] Rh Nom (Bld) Positive Normal [facility] Comment on above: Order Comment: Speci men Type: BLOOD SPECIMENOrdering Facility: [facility] Address: [address] [place] [address] Performed By: #### T SCR ####[facility] BLOOD BANKCLIA [id number] [address] TYPE AND SCREEN EXPIRATION 08/07/2021 23:59 Normal [facility] Comment on above: Order Comment: Speci men Type: BLOOD SPECIMENOrdering Facility: [facility] Address: [address] [place] [address] Performed By: #### T SCR ####[facility] BLOOD BANKCLIA [id number] [address] OF [place] aPTT PPPon 08-04-2021 aPTT Coag (PPP) [Time] 51.8 s High 23.0-32.4 [facility] Comment on above: Order Comment: Speci men Type: BLOOD SPECIMENOrdering Facility: [facility] Address: [address] [place] [address] Performed By: #### 1 4979-9 ####[facility] LABORATORYCLIA [id number] [address] OF [facility] Basic metabolic 2000 panelon 08-03-2021 Anion gap [Moles/Vol] 9 mmol/L Normal 9-18 [facility] Comment on above: Order Comment: Speci men Type: BLOOD SPECIMENOrdering Facility: [facility] Address: [address] [place] [address] Performed By: #### 2 4321-2, , 2776-05 ####[facility] LABORATORYCLIA [id number] [address] STATES OF [facility] Calcium [Mass/Vol] 9.3 mg/dL Normal 8.5-10.2 [facility] Comment on above: Order Comment: Speci men Type: BLOOD SPECIMENOrdering Facility: [facility] Address: [address] [place] [address] Performed By: #### 2 4321-2, , 27711-04 ####[facility] LABORATORYCLIA [id number] [address] OF [facility] Chloride [Moles/Vol] 97 mmol/L Normal 97-105 [facility] Comment on above: Order Comment: Speci men Type: BLOOD SPECIMENOrdering Facility: [facility] Address: [address] [place] [address] Performed By: #### 2 4321-2, , 2776-05 ####[facility] HE[facility] SERVICESCLIA [id number] [address] CO2 [Moles/Vol] 27 mmol/L Normal 22-30 [facility] Comment on above: Order Comment: Speci men Type: BLOOD SPECIMENOrdering Facility: [facility] Address: [address] [place] [address] Performed By: #### 2 4321-2, , 2776-05 ####[facility] [id number] [address] Creatinine [Mass/Vol] 0.63 mg/dL Low 0.73-1.22 [facility] Comment on above: Order Comment: Speci men Type: BLOOD SPECIMENOrdering Facility: [facility] Address: [address] [place] [address] Performed By: #### 2 4321-2, , 2776-05 ####[facility]ITALIA [id number] [address] ESTIMATED GLOMERULAR FILTRATION RATE 103 mL/min/1.73m??? Normal >=60 [facility] Comment on above: Order Comment: Speci men Type: BLOOD SPECIMENOrdering Facility: [facility] Address: [address] [place] [address] Result Comment: Luzmaria mated Glomerular Filtration Rate [...] Performed By: #### 2 4321-2, , 2776-05 ####[facility] LABORATORYCLIA [id number] [place] [address] [place] Glucose [Mass/Vol] 136 mg/dL High 74-99 [facility] Comment on above: Order Comment: Speci men Type: BLOOD SPECIMENOrdering Facility: [facility] Address: [address] [place] [address] Result Comment: The [place] [employer] (ADA) provides guidance for cutoff [...] Standards of Medical Care in Diabetes 2016, [place] [employer]. Diabetes Care. 2016.39(Suppl 1). Performed By: #### 2 4321-2, , 2776-05 ####[facility] LABORATORYCLIA [id number] [place] [address] [place] Potassium [Moles/Vol] 4.1 mmol/L Normal 3.7-5.1 [facility] Comment on above: Order Comment: Shira feldman Type: BLOOD SPECIMENOrdering Facility: [facility] Address: [address] [place], [place] [address] Performed By: #### 2 4321-2, , 2776-05 ####[facility] LABORATORYCLIA [id number] [place] [address] [place] Sodium [Moles/Vol] 133 mmol/L Low 136-144 [facility] Comment on above: Order Comment: Johni men Type: BLOOD SPECIMENOrdering Facility: [facility] Address: [address] [place], [place] [address] Performed By: #### 2 4321-2, , 2776-05 ####[facility] LABORATORYCLIA [id number] [address] STATES OF [place] Urea nitrogen [Mass/Vol] 40 mg/dL High 9-24 [facility] Comment on above: Order Comment: Speci men Type: BLOOD SPECIMENOrdering Facility: [facility] Address: [address] [place] [address] Performed By: #### 2 4321-2, 07944-2, 2777-1 ####[facility] LABORATORYCLIA [id number] [address] STATES OF [place] CASE MANAGEMon 08-03-2021 CASE MANAGEM Normal [facility] CBC W Auto Differential pane l (Bld)on 08-03-2021 Basophils (Bld) [#/Vol] 0.06 10*3/uL Normal <0.11 [facility] Comment on above: Order Comment: Speci men Type: BLOOD SPECIMENOrdering Facility: [facility] Address: [address] [place] [address] Performed By: #### 5 7021-8 ####[facility] LABORATORYCLIA [id number] [address] STATES OF [place] Basophils/100 WBC (Bld) 0.5 % Normal [facility] Comment on above: Order Comment: Speci men Type: BLOOD SPECIMENOrdering Facility: [facility] Address: [address] [place] [address] Performed By: #### 5 7021-8 ####[facility] LABORATORYCLIA [id number] [address] STATES OF [place] Differential cell count method Nom (Bld) Auto Normal [facility] Comment on above: Order Comment: Speci men Type: BLOOD SPECIMENOrdering Facility: [facility] Address: [address] [place] [address] Performed By: #### 5 7021-8 ####[facility] LABORATORYCLIA [id number] [place] [address] [place] Eosinophils (Bld) [#/Vol] 0.23 10*3/uL Normal <0.46 [facility] Comment on above: Order Comment: Speci men Type: BLOOD SPECIMENOrdering Facility: [facility] Address: [address] [place] [address] Performed By: #### 5 7021-8 ####[facility] LABORATORYCLIA [id number] [address] Eosinophils/100 WBC (Bld) 1.8 % Normal [facility] Comment on above: Order Comment: Speci men Type: BLOOD SPECIMENOrdering Facility: [facility] Address: [address] [place] [address] Performed By: #### 5 7021-8 ####[facility] LABORATORYCLIA [id number] [address] Erythrocyte distribution width (RBC) [Ratio] 17.6 % High 11.5-15.0 [facility] Comment on above: Order Comment: Speci men Type: BLOOD SPECIMENOrdering Facility: [facility] Address: [address] [place] [address] Performed By: #### 5 7021-8 ####[facility] LABORATORYCLIA [id number] [address] Hematocrit (Bld) [Volume fraction] 30.7 % Low 39.0-51.0 [facility] Comment on above: Order Comment: Speci men Type: BLOOD SPECIMENOrdering Facility: [facility] Address: [address] [place] [address] Performed By: #### 5 7021-8 ####[facility] LABORATORYCLIA [id number] [address] OF [place] Hemoglobin (Bld) [Mass/Vol] 9.3 g/dL Low 13.0-17.0 [facility] Comment on above: Order Comment: Speci men Type: BLOOD SPECIMENOrdering Facility: [facility] Address: [address] [place] [address] Performed By: #### 5 7021-8 ####[facility] LABORATORYCLIA [id number] [address] [place] IMMATURE GRAN % 0.6 % Normal [facility] Comment on above: Order Comment: Speci men Type: BLOOD SPECIMENOrdering Facility: [facility] Address: [address] [place] [address] Performed By: #### 5 7021-8 ####[facility] LABORATORYCLIA [id number] [address] IMMATURE GRAN ABS 0.08 k/uL Normal <0.10 [facility] Comment on above: Order Comment: Speci men Type: BLOOD SPECIMENOrdering Facility: [facility] Address: [address] [place] [address] Performed By: #### 5 7021-8 ####[facility] LABORATORYCLIA [id number] [address] Lymphocytes (Bld) [#/Vol] 2.45 10*3/uL Normal 1.00-4.00 [facility] Comment on above: Order Comment: Speci men Type: BLOOD SPECIMENOrdering Facility: [facility] Address: [address] [place] [address] Performed By: #### 5 7021-8 ####[facility] LABORATORYCLIA [id number] [address] Lymphocytes/100 WBC (Bld) 19.7 % Normal [facility] Comment on above: Order Comment: Speci men Type: BLOOD SPECIMENOrdering Facility: [facility] Address: [address] [place] [address] Performed By: #### 5 7021-8 ####[facility] LABORATORYCLIA [id number] [address] STATES [place] MCH (RBC) [Entitic mass] 28.2 pg Normal 26.0-34.0 [facility] Comment on above: Order Comment: Speci men Type: BLOOD SPECIMENOrdering Facility: [facility] Address: [address] [place] [address] Performed By: #### 5 7021-8 ####[facility] LABORATORYCLIA [id number] [address] STATES OF [facility] MCHC (RBC) [Mass/Vol] 30.3 g/dL Low 30.5-36.0 [facility] Comment on above: Order Comment: Speci men Type: BLOOD SPECIMENOrdering Facility: [facility] Address: [address] [place] [address] Performed By: #### 5 7021-8 ####[facility] LABORATORYCLIA [id number] [address] MCV (RBC) [Entitic vol] 93.0 fL Normal 80.0-100.0 [facility] Comment on above: Order Comment: Speci men Type: BLOOD SPECIMENOrdering Facility: [facility] Address: [address] [place] [address] Performed By: #### 5 7021-8 ####[facility] LABORATORYCLIA [id number] [address] [place] Monocytes (Bld) [#/Vol] 0.72 10*3/uL Normal <0.87 [facility] Comment on above: Order Comment: Speci men Type: BLOOD SPECIMENOrdering Facility: [facility] Address: [address] [place] [address] Performed By: #### 5 7021-8 ####[facility] LABORATORYCLIA [id number] [address] Monocytes/100 WBC (Bld) 5.8 % Normal [facility] Comment on above: Order Comment: Speci men Type: BLOOD SPECIMENOrdering Facility: [facility] Address: [address] [place] [address] Performed By: #### 5 7021-8 ####[facility] LABORATORYCLIA [id number] [address] OF [place] Neutrophils (Bld) [#/Vol] 8.92 10*3/uL High 1.45-7.50 [facility] Comment on above: Order Comment: Speci men Type: BLOOD SPECIMENOrdering Facility: [facility] Address: [address] [address] Performed By: #### 5 7021-8 ####[facility] LABORATORYCLIA [id number] [address] Neutrophils/100 WBC (Bld) 71.6 % Normal [facility] Comment on above: Order Comment: Speci men Type: BLOOD SPECIMENOrdering Facility: [facility] Address: [address] [place] [address] Performed By: #### 5 7021-8 ####[facility] LABORATORYCLIA [id number] [address] Nucleated RBC (Bld) [#/Vol] 10*3/uL Normal <0.01 [facility] Comment on above: Order Comment: Speci men Type: BLOOD SPECIMENOrdering Facility: [facility] Address: [address] [place] [address] Performed By: #### 5 7021-8 ####[facility] LABORATORYCLIA [id number] [address] Nucleated RBC/100 WBC (Bld) [Ratio] 0.0 /100 WBC Normal [facility] Comment on above: Order Comment: Speci men Type: BLOOD SPECIMENOrdering Facility: [facility] Address: [address] [place] [address] Performed By: #### 5 7021-8 ####[facility] LABORATORYCLIA [id number] [address] Platelet mean volume (Bld) [Entitic vol] 10.2 fL Normal 9.0-12.7 [facility] Comment on above: Order Comment: Speci men Type: BLOOD SPECIMENOrdering Facility: [facility] Address: [address] [place] [address] Performed By: #### 5 7021-8 ####[facility] LABORATORYCLIA [id number] [address] OF [place] Platelets (Bld) [#/Vol] 352 10*3/uL Normal 150-400 [facility] Comment on above: Order Comment: Speci men Type: BLOOD SPECIMENOrdering Facility: [facility] Address: [address] [place] [address] Performed By: #### 5 7021-8 ####[facility] LABORATORYCLIA [id number] [place] [address] [place] RBC (Bld) [#/Vol] 3.30 10*6/uL Low 4.20-6.00 [facility] Comment on above: Order Comment: Speci men Type: BLOOD SPECIMENOrdering Facility: [facility] Address: [address] [place] [address] Performed By: #### 5 7021-8 ####[facility] LABORATORYCLIA [id number] [address] STATES OF [facility] WBC (Bld) [#/Vol] 12.46 10*3/uL High 3.70-11.00 [facility] Comment on above: Order Comment: Speci men Type: BLOOD SPECIMENOrdering Facility: [facility] Address: [address] [place] [address] Performed By: #### 5 7021-8 ####[facility] LABORATORYCLIA [id number] [address] CONSULT PROGon 08-03-2021 CONSULT PROG Normal [facility] Magnesium SerPl-mCncon 08-03 Magnesium [Mass/Vol] 2.2 mg/dL Normal 1.7-2.3 [facility] Comment on above: Order Comment: Speci men Type: BLOOD SPECIMENOrdering Facility: [facility] Address: [address] [place] [address] Performed By: #### 2 4321-2, 52896-5, 2777-1 ####[facility] LABORATORYCLIA [id number] [address] OF [place] NURSING PROGon 08-03-2021 NURSING PROG Normal [facility] Phosphate SerPl-mCncon 08-03 Phosphate [Mass/Vol] 4.2 mg/dL Normal 2.7-4.8 [facility] Comment on above: Order Comment: Speci men Type: BLOOD SPECIMENOrdering Facility: [facility] Address: [address] [place] [address] Performed By: #### 2 4321-2, 94014-1, 2777-1 ####[facility] LABORATORYCLIA [id number] [place] [address] [place] aPTT PPPon 08-03-2021 aPTT Coag (PPP) [Time] 50.0 s High 23.0-32.4 [facility] Comment on above: Order Comment: Speci men Type: BLOOD SPECIMENOrdering Facility: [facility] Address: [address] [place] [address] Performed By: #### 1 4979-9 ####[facility] LABORATORYCLIA [id number] [place] [address] [place] CBC W Auto Differential pane l (Bld)on 08-02-2021 Basophils (Bld) [#/Vol] 10*3/uL Normal <0.11 [facility] Comment on above: Order Comment: Speci men Type: BLOOD SPECIMENOrdering Facility: [facility] Address: [address] [place] [address] Performed By: #### 5 7021-8 ####[facility] LABORATORYCLIA [id number] [address] STATES [place] Basophils/100 WBC (Bld) 0.2 % Normal [facility] Comment on above: Order Comment: Speci men Type: BLOOD SPECIMENOrdering Facility: [facility] Address: [address] [place] [address] Performed By: #### 5 7021-8 ####[facility] LABORATORYCLIA [id number] [address] STATES OF [facility] Differential cell count method Nom (Bld) Auto Normal [facility] Comment on above: Order Comment: Speci men Type: BLOOD SPECIMENOrdering Facility: [facility] Address: [address] [address] Performed By: #### 5 7021-8 ####[facility] LABORATORYCLIA [id number] [address] Eosinophils (Bld) [#/Vol] 10*3/uL Normal <0.46 [facility] Comment on above: Order Comment: Speci men Type: BLOOD SPECIMENOrdering Facility: [facility] Address: [address] [place] [address] Performed By: #### 5 7021-8 ####[facility] LABORATORYCLIA [id number] [address] Eosinophils/100 WBC (Bld) 0.0 % Normal [facility] Comment on above: Order Comment: Speci men Type: BLOOD SPECIMENOrdering Facility: [facility] Address: [address] [place] [address] Performed By: #### 5 7021-8 ####[facility] LABORATORYCLIA [id number] [address] Erythrocyte distribution width (RBC) [Ratio] 17.3 % High 11.5-15.0 [facility] Comment on above: Order Comment: Speci men Type: BLOOD SPECIMENOrdering Facility: [facility] Address: [address] [place] [address] Performed By: #### 5 7021-8 ####[facility] LABORATORYCLIA [id number] [address] Hematocrit (Bld) [Volume fraction] 30.8 % Low 39.0-51.0 [facility] Comment on above: Order Comment: Speci men Type: BLOOD SPECIMENOrdering Facility: [facility] Address: [address] [place] [address] Performed By: #### 5 7021-8 ####[facility] LABORATORYCLIA [id number] [address] Hemoglobin (Bld) [Mass/Vol] 9.7 g/dL Low 13.0-17.0 [facility] Comment on above: Order Comment: Speci men Type: BLOOD SPECIMENOrdering Facility: [facility] Address: [address] [place] [address] Performed By: #### 5 7021-8 ####[facility]ORATORYCLIA [id number] [address] IMMATURE GRAN % 0.5 % Normal [facility] Comment on above: Order Comment: Speci men Type: BLOOD SPECIMENOrdering Facility: [facility] Address: [address] [place] [address] Performed By: #### 5 7021-8 ####[facility] LABORATORYCLIA [id number] [address] IMMATURE GRAN ABS 0.07 k/uL Normal <0.10 [facility] Comment on above: Order Comment: Speci men Type: BLOOD SPECIMENOrdering Facility: [facility] Address: [address] [place] [address] Performed By: #### 5 7021-8 ####[facility] LABORATORYCLIA [id number] [address] Lymphocytes (Bld) [#/Vol] 1.60 10*3/uL Normal 1.00-4.00 [facility] Comment on above: Order Comment: Speci men Type: BLOOD SPECIMENOrdering Facility: [facility] Address: [address] [place] [address] Performed By: #### 5 7021-8 ####[facility]ORATORYCLIA [id number] [address] Lymphocytes/100 WBC (Bld) 12.1 % Normal [facility] Comment on above: Order Comment: Speci men Type: BLOOD SPECIMENOrdering Facility: [facility] Address: [address] [place] [address] Performed By: #### 5 7021-8 ####[facility]ORATORYCLIA [id number] [address] MCH (RBC) [Entitic mass] 28.6 pg Normal 26.0-34.0 [facility] Comment on above: Order Comment: Speci men Type: BLOOD SPECIMENOrdering Facility: [facility] Address: [address] [place] [address] Performed By: #### 5 7021-8 ####[facility] LABORATORYCLIA [id number] [address] MCHC (RBC) [Mass/Vol] 31.5 g/dL Normal 30.5-36.0 [facility] Comment on above: Order Comment: Speci men Type: BLOOD SPECIMENOrdering Facility: [facility] Address: [address] [place] [address] Performed By: #### 5 7021-8 ####[facility] LABORATORYCLIA [id number] [address] MCV (RBC) [Entitic vol] 90.9 fL Normal 80.0-100.0 [facility] Comment on above: Order Comment: Speci men Type: BLOOD SPECIMENOrdering Facility: [facility] Address: [address] [place] [address] Performed By: #### 5 7021-8 ####[facility] LABORATORYCLIA [id number] [address] Monocytes (Bld) [#/Vol] 0.39 10*3/uL Normal <0.87 [facility] Comment on above: Order Comment: Speci men Type: BLOOD SPECIMENOrdering Facility: [facility] Address: [address] [place] [address] Performed By: #### 5 7021-8 ####[facility] LABORATORYCLIA [id number] [address] Monocytes/100 WBC (Bld) 3.0 % Normal [facility] Comment on above: Order Comment: Speci men Type: BLOOD SPECIMENOrdering Facility: [facility] Address: [address] [place] [address] Performed By: #### 5 7021-8 ####[facility] LABORATORYCLIA [id number] [place] [address] [place] Neutrophils (Bld) [#/Vol] 11.09 10*3/uL High 1.45-7.50 [facility] Comment on above: Order Comment: Speci men Type: BLOOD SPECIMENOrdering Facility: [facility] Address: [address] [place] [address] Performed By: #### 5 7021-8 ####[facility] LABORATORYCLIA [id number] [address] STATES OF [facility] Neutrophils/100 WBC (Bld) 84.2 % Normal [facility] Comment on above: Order Comment: Speci men Type: BLOOD SPECIMENOrdering Facility: [facility] Address: [address] [place] [address] Performed By: #### 5 7021-8 ####[facility] LABORATORYCLIA [id number] [address] STATES [facility] Nucleated RBC (Bld) [#/Vol] 10*3/uL Normal <0.01 [facility] Comment on above: Order Comment: Speci men Type: BLOOD SPECIMENOrdering Facility: [facility] Address: [address] [place] [address] Performed By: #### 5 7021-8 ####[facility] LABORATORYCLIA [id number] [address] Nucleated RBC/100 WBC (Bld) [Ratio] 0.0 /100 WBC Normal [facility] Comment on above: Order Comment: Speci men Type: BLOOD SPECIMENOrdering Facility: [facility] Address: [address] [place] [address] Performed By: #### 5 7021-8 ####[facility] LABORATORYCLIA [id number] [address] [place] Platelet mean volume (Bld) [Entitic vol] 10.0 fL Normal 9.0-12.7 [facility] Comment on above: Order Comment: Speci men Type: BLOOD SPECIMENOrdering Facility: [facility] Address: [address] [place] [address] Performed By: #### 5 7021-8 ####[facility] LABORATORYCLIA [id number] [address] Platelets (Bld) [#/Vol] 358 10*3/uL Normal 150-400 [facility] Comment on above: Order Comment: Speci men Type: BLOOD SPECIMENOrdering Facility: [facility] Address: [address] [place] [address] Performed By: #### 5 7021-8 ####[facility] LABORATORYCLIA [id number] [address] RBC (Bld) [#/Vol] 3.39 10*6/uL Low 4.20-6.00 [facility] Comment on above: Order Comment: Speci men Type: BLOOD SPECIMENOrdering Facility: [facility] Address: [address] [place] [address] Performed By: #### 5 7021-8 ####[facility] LABORATORYCLIA [id number] [address] WBC (Bld) [#/Vol] 13.17 10*3/uL High 3.70-11.00 [facility] Comment on above: Order Comment: Speci men Type: BLOOD SPECIMENOrdering Facility: [facility] Address: [address] [place] [address] Performed By: #### 5 7021-8 ####[facility] LABORATORYCLIA [id number] [address] OF [facility] NURSING PROGon 08-02-2021 NURSING PROG Normal [facility] THERAPY NTon 08-02-2021 THERAPY NT Normal [facility] aPTT PPPon 08-02-2021 aPTT Coag (PPP) [Time] 54.9 s High 23.0-32.4 [facility] Comment on above: Order Comment: Speci men Type: BLOOD SPECIMENOrdering Facility: [facility] Address: [address] [place] [address] Performed By: #### 1 4979-9 ####[facility] LABORATORYCLIA [id number] [place] [address] [place] ALLIED HEALTHon 08-01-2021 ALLIED HEALTH Normal [facility] ALLIED HEALTH Normal [facility] Basic metabolic 2000 panelon 08-01-2021 Anion gap [Moles/Vol] 12 mmol/L Normal 9-18 [facility] Comment on above: Order Comment: Speci men Type: BLOOD SPECIMENOrdering Facility: [facility] Address: [address] [place] [address] Performed By: #### 2 4321-2, 93245-3, 70387-0, 2777-1 ####[facility] LABORATORYCLIA [id number] [place] [address] [place] Calcium [Mass/Vol] 9.1 mg/dL Normal 8.5-10.2 [facility] Comment on above: Order Comment: Speci men Type: BLOOD SPECIMENOrdering Facility: [facility] Address: [address] [place] [address] Performed By: #### 2 4321-2, 89495-7, 76158-1, 2777-1 ####[facility] LABORATORYCLIA [id number] [place] [address] [place] Chloride [Moles/Vol] 96 mmol/L Low 97-105 [facility] Comment on above: Order Comment: Speci men Type: BLOOD SPECIMENOrdering Facility: [facility] Address: [address] [place] [address] Performed By: #### 2 4321-2, 94759-8, 39196-4, 2777-1 ####[facility] LABORATORYCLIA [id number] [place] [address] [place] CO2 [Moles/Vol] 27 mmol/L Normal 22-30 [facility] Comment on above: Order Comment: Speci men Type: BLOOD SPECIMENOrdering Facility: [facility] Address: [address] [place] [address] Performed By: #### 2 4321-2, 64209-4, 56675-5, 2777-1 ####[facility] LABORATORYCLIA [id number] [place] [address] [place] Creatinine [Mass/Vol] 0.64 mg/dL Low 0.73-1.22 [facility] Comment on above: Order Comment: Speci men Type: BLOOD SPECIMENOrdering Facility: [facility] Address: [address] [place] [address] Performed By: #### 2 4321-2, 49913-9, 17343-9, 2777- ####[facility] HE[facility] SERVICESCLIA [id number] [address] STATES OF [place] ESTIMATED GLOMERULAR FILTRATION RATE 102 mL/min/1.73m??? Normal >=60 [facility] Comment on above: Order Comment: Speccara men Type: BLOOD SPECIMENOrdering Facility: [facility] Address: [address] [place] [address] Result Comment: Luzmaria mated Glomerular Filtration Rate [...] actual GFR. Performed By: #### 2 4321-2, 65325-3, 90096-9, 2777-1 ####[facility] LABORATORYCLIA [id number] [place] [address] [place] Glucose [Mass/Vol] 122 mg/dL High 74-99 [facility] Comment on above: Order Comment: Shira francia Type: BLOOD SPECIMENOrdering Facility: [facility] Address: [address] [place] [address] Result Comment: The [place] [employer] (ADA) provides guidance for cutoff [...] Standards of Medical Care in Diabetes 2016, [place] [employer]. Diabetes Care. 2016.39(Suppl 1). Performed By: #### 2 4321-2, 96998-4, 82701-3, 2777-1 ####[facility] LABORATORYCLIA [id number] [place] [address] [place] Potassium [Moles/Vol] 4.2 mmol/L Normal 3.7-5.1 [facility] Comment on above: Order Comment: Shira feldman Type: BLOOD SPECIMENOrdering Facility: [facility] Address: [address] [place] [address] Performed By: #### 2 4321-2, 23766-8, 31726-9, 2777-1 ####[facility] HE[facility] SERVICESCLIA [id number] [place] [address] [place] Sodium [Moles/Vol] 135 mmol/L Low 136-144 [facility] Comment on above: Order Comment: Shira feldman Type: BLOOD SPECIMENOrdering Facility: [facility] Address: [address] [address] Performed By: #### 2 4321-2, 84201-8, 35801-7, 2777-1 ####[facility] LABORATORYCLIA [id number] [place] [address] [place] Urea nitrogen [Mass/Vol] 36 mg/dL High 9-24 [facility] Comment on above: Order Comment: Shira feldamn Type: BLOOD SPECIMENOrdering Facility: [facility] Address: [address] [address] Performed By: #### 2 4321-2, 28935-9, 45966-3, 2777-1 ####[facility] LABORATORYCLIA [id number] [address] STATES [place] CASE MANAGEMon 08-01-2021 CASE MANAGEM Normal [facility] CBC W Auto Differential pane l (Bld)on 08-01-2021 Basophils (Bld) [#/Vol] 0.04 10*3/uL Normal <0.11 [facility] Comment on above: Order Comment: Speci men Type: BLOOD SPECIMENOrdering Facility: [facility] Address: [address] [place] [address] Performed By: #### 5 7021-8 ####[facility] LABORATORYCLIA [id number] [address] STATES [facility] Basophils/100 WBC (Bld) 0.3 % Normal [facility] Comment on above: Order Comment: Speci men Type: BLOOD SPECIMENOrdering Facility: [facility] Address: [address] [place] [address] Performed By: #### 5 7021-8 ####[facility] LABORATORYCLIA [id number] [address] STATES [facility] Differential cell count method Nom (Bld) Auto Normal [facility] Comment on above: Order Comment: Speci men Type: BLOOD SPECIMENOrdering Facility: [facility] Address: [address] [place] [address] Performed By: #### 5 7021-8 ####[facility] LABORATORYCLIA [id number] [address] STATES [place] Eosinophils (Bld) [#/Vol] 0.37 10*3/uL Normal <0.46 [facility] Comment on above: Order Comment: Speci men Type: BLOOD SPECIMENOrdering Facility: [facility] Address: [address] [place] [address] Performed By: #### 5 7021-8 ####[facility] LABORATORYCLIA [id number] [address] [place] Eosinophils/100 WBC (Bld) 3.1 % Normal [facility] Comment on above: Order Comment: Speci men Type: BLOOD SPECIMENOrdering Facility: [facility] Address: [address] [place] [address] Performed By: #### 5 7021-8 ####[facility] LABORATORYCLIA [id number] [address] Erythrocyte distribution width (RBC) [Ratio] 17.5 % High 11.5-15.0 [facility] Comment on above: Order Comment: Speci men Type: BLOOD SPECIMENOrdering Facility: [facility] Address: [address] [place] [address] Performed By: #### 5 7021-8 ####[facility] LABORATORYCLIA [id number] [address] Hematocrit (Bld) [Volume fraction] 30.1 % Low 39.0-51.0 [facility] Comment on above: Order Comment: Speci men Type: BLOOD SPECIMENOrdering Facility: [facility] Address: [address] [place] [address] Performed By: #### 5 7021-8 ####[facility] LABORATORYCLIA [id number] [address] Hemoglobin (Bld) [Mass/Vol] 9.1 g/dL Low 13.0-17.0 [facility] Comment on above: Order Comment: Speci men Type: BLOOD SPECIMENOrdering Facility: [facility] Address: [address] [place] [address] Performed By: #### 5 7021-8 ####[facility] LABORATORYCLIA [id number] [address] IMMATURE GRAN % 0.6 % Normal [facility] Comment on above: Order Comment: Speci men Type: BLOOD SPECIMENOrdering Facility: [facility] Address: [address] [place] [address] Performed By: #### 5 7021-8 ####[facility] LABORATORYCLIA [id number] [address] IMMATURE GRAN ABS 0.07 k/uL Normal <0.10 [facility] Comment on above: Order Comment: Speci men Type: BLOOD SPECIMENOrdering Facility: [facility] Address: [address] [place] [address] Performed By: #### 5 7021-8 ####[facility] LABORATORYCLIA [id number] [address] Lymphocytes (Bld) [#/Vol] 2.05 10*3/uL Normal 1.00-4.00 [facility] Comment on above: Order Comment: Speci men Type: BLOOD SPECIMENOrdering Facility: [facility] Address: [address] [place] [address] Performed By: #### 5 7021-8 ####[facility] LABORATORYCLIA [id number] [address] Lymphocytes/100 WBC (Bld) 17.1 % Normal [facility] Comment on above: Order Comment: Speci men Type: BLOOD SPECIMENOrdering Facility: [facility] Address: [address] [place] [address] Performed By: #### 5 7021-8 ####[facility] LABORATORYCLIA [id number] [address] MCH (RBC) [Entitic mass] 27.7 pg Normal 26.0-34.0 [facility] Comment on above: Order Comment: Speci men Type: BLOOD SPECIMENOrdering Facility: [facility] Address: [address] [place] [address] Performed By: #### 5 7021-8 ####[facility] LABORATORYCLIA [id number] [address] MCHC (RBC) [Mass/Vol] 30.2 g/dL Low 30.5-36.0 [facility] Comment on above: Order Comment: Speci men Type: BLOOD SPECIMENOrdering Facility: [facility] Address: [address] [place], [place] [id number] Performed By: #### 5 7021-8 ####[facility] LABORATORYCLIA [id number] [address] STATES [place] MCV (RBC) [Entitic vol] 91.5 fL Normal 80.0-100.0 [facility] Comment on above: Order Comment: Speci men Type: BLOOD SPECIMENOrdering Facility: [facility] Address: [address] [place] [address] Performed By: #### 5 7021-8 ####[facility] LABORATORYCLIA [id number] [address] [place] Monocytes (Bld) [#/Vol] 0.53 10*3/uL Normal <0.87 [facility] Comment on above: Order Comment: Speci men Type: BLOOD SPECIMENOrdering Facility: [facility] Address: [address] [place] [address] Performed By: #### 5 7021-8 ####[facility] LABORATORYCLIA [id number] [address] Monocytes/100 WBC (Bld) 4.4 % Normal [facility] Comment on above: Order Comment: Speci men Type: BLOOD SPECIMENOrdering Facility: [facility] Address: [address] [place] [address] Performed By: #### 5 7021-8 ####[facility] LABORATORYCLIA [id number] [address] STATES [place] Neutrophils (Bld) [#/Vol] 8.91 10*3/uL High 1.45-7.50 [facility] Comment on above: Order Comment: Speci men Type: BLOOD SPECIMENOrdering Facility: [facility] Address: [address] [place] [address] Performed By: #### 5 7021-8 ####[facility] LABORATORYCLIA [id number] [address] [place] Neutrophils/100 WBC (Bld) 74.5 % Normal [facility] Comment on above: Order Comment: Speci men Type: BLOOD SPECIMENOrdering Facility: [facility] Address: [address] Performed By: #### 5 7021-8 ####[facility] LABORATORYCLIA [id number] [address] [place] Nucleated RBC (Bld) [#/Vol] 10*3/uL Normal <0.01 [facility] Comment on above: Order Comment: Speci men Type: BLOOD SPECIMENOrdering Facility: [facility] Address: [address] [place] [address] Performed By: #### 5 7021-8 ####[facility] LABORATORYCLIA [id number] [address] [place] Nucleated RBC/100 WBC (Bld) [Ratio] 0.0 /100 WBC Normal [facility] Comment on above: Order Comment: Speci men Type: BLOOD SPECIMENOrdering Facility: [facility] Address: [address] [address] Performed By: #### 5 7021-8 ####[facility] LABORATORYCLIA [id number] [address] [place] Platelet mean volume (Bld) [Entitic vol] 10.4 fL Normal 9.0-12.7 [facility] Comment on above: Order Comment: Speci men Type: BLOOD SPECIMENOrdering Facility: [facility] Address: [address] Performed By: #### 5 7021-8 ####[facility] LABORATORYCLIA [id number] [address] [place] Platelets (Bld) [#/Vol] 319 10*3/uL Normal 150-400 [facility] Comment on above: Order Comment: Speci men Type: BLOOD SPECIMENOrdering Facility: [facility] Address: [address] [place] [address] Performed By: #### 5 7021-8 ####[facility] LABORATORYCLIA [id number] [address] STATES OF [facility] RBC (Bld) [#/Vol] 3.29 10*6/uL Low 4.20-6.00 [facility] Comment on above: Order Comment: Speci men Type: BLOOD SPECIMENOrdering Facility: [facility] Address: [address] [place] [address] Performed By: #### 5 7021-8 ####[facility] LABORATORYCLIA [id number] [address] STATES OF [facility] WBC (Bld) [#/Vol] 11.97 10*3/uL High 3.70-11.00 [facility] Comment on above: Order Comment: Speci men Type: BLOOD SPECIMENOrdering Facility: [facility] Address: [address] [place] [address] Performed By: #### 5 7021-8 ####[facility] LABORATORYCLIA [id number] [address] OF [facility] CT BRAIN WO IVCONon 08-02-[address] BRAIN WO IVCON Normal [facility] Magnesium SerPl-ncon 08-01 Magnesium [Mass/Vol] 2.4 mg/dL High 1.7-2.3 [facility] Comment on above: Order Comment: Speci men Type: BLOOD SPECIMENOrdering Facility: [facility] Address: [address] [place] [address] Performed By: #### 2 4321-2, 91694-1, 25744-3, 2777-1 ####[facility] LABORATORYCLIA [id number] [address] [place] NURSING PROGon 08-01-2021 NURSING PROG Normal [facility] NUTRITIONon 08-01-2021 NUTRITION Normal [facility] Phosphate SerPl-mCncon 08-01 Phosphate [Mass/Vol] 3.3 mg/dL Normal 2.7-4.8 [facility] Comment on above: Order Comment: Speci men Type: BLOOD SPECIMENOrdering Facility: [facility] Address: [address] [address] Performed By: #### 2 4321-2, 75039-8, 02721-0, 2777-1 ####[facility] LABORATORYCLIA [id number] [address] Prealbumin [Mass/Vol]on 07-06 Prealbumin Nephelometry [Mass/Vol] 30 mg/dL Normal -36 [facility] Comment on above: Order Comment: Speci men Type: BLOOD SPECIMENOrdering Facility: [facility] Address: [address] [place] [address] Performed By: #### 2 4321-2, 26597-3, 23992-5, 2777-1 ####[facility] LABORATORYCLIA [id number] [address] THERAPY NTon 08-01-2021 THERAPY NT Normal [facility] THERAPY NT Normal [facility] TYPE AND SCREENon 08-01-2021 ABO O Normal [facility] Comment on above: Order Comment: Speci men Type: BLOOD SPECIMENOrdering Facility: [facility] Address: [address] [place] [address] Performed By: #### T SCR ####[facility] BLOOD BANKCLIA [id number] [address] STATES [place] HISTORICAL AB SCR STATUS Negative Normal [facility] Comment on above: Order Comment: Speci men Type: BLOOD SPECIMENOrdering Facility: [facility] Address: [address] [address] Performed By: #### T SCR ####[facility] BLOOD BANKCLIA [id number] [address] [place] Rh Nom (Bld) Positive Normal [facility] Comment on above: Order Comment: Speci men Type: BLOOD SPECIMENOrdering Facility: [facility] Address: [address] [address] Performed By: #### T SCR ####[facility] BLOOD BANKCLIA [id number] [address] STATES OF [facility] TYPE AND SCREEN EXPIRATION 08/04/2021 23:59 Normal [facility] Comment on above: Order Comment: Speci men Type: BLOOD SPECIMENOrdering Facility: [facility] Address: [address] [place] [address] Performed By: #### T SCR ####[facility] BLOOD BANKCLIA [id number] [address] [place] XR CHEST 1V FRONTALon 2021 XR CHEST 1V FRONTAL Normal [facility] aPTT PPPon 08-01-2021 aPTT Coag (PPP) [Time] 50.9 s High 23.0-32.4 [facility] Comment on above: Order Comment: Speci men Type: BLOOD SPECIMENOrdering Facility: [facility] Address: [address] [place] [address] Performed By: #### 1 4979-9 ####[facility] LABORATORYCLIA [id number] [address] STATES OF [facility] CBC W Auto Differential pane l (Bld)on 07-31-2021 Basophils (Bld) [#/Vol] 0.05 10*3/uL Normal <0.11 [facility] Comment on above: Order Comment: Speci men Type: BLOOD SPECIMENOrdering Facility: [facility] Address: [address] [place] [address] Performed By: #### 5 7021-8 ####[facility] LABORATORYCLIA [id number] [address] [place] Basophils/100 WBC (Bld) 0.4 % Normal [facility] Comment on above: Order Comment: Speci men Type: BLOOD SPECIMENOrdering Facility: [facility] Address: [address] [place] [address] Performed By: #### 5 7021-8 ####[facility] LABORATORYCLIA [id number] [address] STATES [facility] Differential cell count method Nom (Bld) Auto Normal [facility] Comment on above: Order Comment: Speci men Type: BLOOD SPECIMENOrdering Facility: [facility] Address: [address] [place] [address] Performed By: #### 5 7021-8 ####[facility] LABORATORYCLIA [id number] [address] [place] Eosinophils (Bld) [#/Vol] 0.51 10*3/uL High <0.46 [facility] Comment on above: Order Comment: Speci men Type: BLOOD SPECIMENOrdering Facility: [facility] Address: [address] [place] [address] Performed By: #### 5 7021-8 ####[facility] LABORATORYCLIA [id number] [address] [place] Eosinophils/100 WBC (Bld) 4.5 % Normal [facility] Comment on above: Order Comment: Speci men Type: BLOOD SPECIMENOrdering Facility: [facility] Address: [address] [place] [address] Performed By: #### 5 7021-8 ####[facility] LABORATORYCLIA [id number] [address] [place] Erythrocyte distribution width (RBC) [Ratio] 17.5 % High 11.5-15.0 [facility] Comment on above: Order Comment: Speci men Type: BLOOD SPECIMENOrdering Facility: [facility] Address: [address] [place] [address] Performed By: #### 5 7021-8 ####[facility] LABORATORYCLIA [id number] [address] [place] Hematocrit (Bld) [Volume fraction] 30.4 % Low 39.0-51.0 [facility] Comment on above: Order Comment: Speci men Type: BLOOD SPECIMENOrdering Facility: [facility] Address: [address] [place] [address] Performed By: #### 5 7021-8 ####[facility] LABORATORYCLIA [id number] [address] Hemoglobin (Bld) [Mass/Vol] 9.2 g/dL Low 13.0-17.0 [facility] Comment on above: Order Comment: Speci men Type: BLOOD SPECIMENOrdering Facility: [facility] Address: [address] [place] [address] Performed By: #### 5 7021-8 ####[facility] LABORATORYCLIA [id number] [address] IMMATURE GRAN % 0.5 % Normal [facility] Comment on above: Order Comment: Speci men Type: BLOOD SPECIMENOrdering Facility: [facility] Address: [address] [place] [address] Performed By: #### 5 7021-8 ####[facility] LABORATORYCLIA [id number] [address] IMMATURE GRAN ABS 0.06 k/uL Normal <0.10 [facility] Comment on above: Order Comment: Speci men Type: BLOOD SPECIMENOrdering Facility: [facility] Address: [address] [place] [address] Performed By: #### 5 7021-8 ####[facility] LABORATORYCLIA [id number] [address] Lymphocytes (Bld) [#/Vol] 1.99 10*3/uL Normal 1.00-4.00 [facility] Comment on above: Order Comment: Speci men Type: BLOOD SPECIMENOrdering Facility: [facility] GENERAL Address: [address] [place] [address] Performed By: #### 5 7021-8 ####[facility] LABORATORYCLIA [id number] [address] Lymphocytes/100 WBC (Bld) 17.6 % Normal [facility] Comment on above: Order Comment: Speci men Type: BLOOD SPECIMENOrdering Facility: [facility] Address: [address] [place] [address] Performed By: #### 5 7021-8 ####[facility] LABORATORYCLIA [id number] [address] STATES [facility] MCH (RBC) [Entitic mass] 28.4 pg Normal 26.0-34.0 [facility] Comment on above: Order Comment: Speci men Type: BLOOD SPECIMENOrdering Facility: [facility] Address: [address] [place] [address] Performed By: #### 5 7021-8 ####[facility] LABORATORYCLIA [id number] [address] MCHC (RBC) [Mass/Vol] 30.3 g/dL Low 30.5-36.0 [facility] Comment on above: Order Comment: Speci men Type: BLOOD SPECIMENOrdering Facility: [facility] Address: [address] [place] [address] Performed By: #### 5 7021-8 ####[facility] LABORATORYCLIA [id number] [address] MCV (RBC) [Entitic vol] 93.8 fL Normal 80.0-100.0 [facility] Comment on above: Order Comment: Speci men Type: BLOOD SPECIMENOrdering Facility: [facility] Address: [address] [place] [address] Performed By: #### 5 7021-8 ####[facility] LABORATORYCLIA [id number] [address] Monocytes (Bld) [#/Vol] 0.57 10*3/uL Normal <0.87 [facility] Comment on above: Order Comment: Speci men Type: BLOOD SPECIMENOrdering Facility: [facility] Address: [address] [place] [address] Performed By: #### 5 7021-8 ####[facility] LABORATORYCLIA [id number] [address] Monocytes/100 WBC (Bld) 5.0 % Normal [facility] Comment on above: Order Comment: Speci men Type: BLOOD SPECIMENOrdering Facility: [facility] Address: [address] [place] [address] Performed By: #### 5 7021-8 ####[facility] LABORATORYCLIA [id number] [address] [place] Neutrophils (Bld) [#/Vol] 8.12 10*3/uL High 1.45-7.50 [facility] Comment on above: Order Comment: Speci men Type: BLOOD SPECIMENOrdering Facility: [facility] Address: [address] [place] [address] Performed By: #### 5 7021-8 ####[facility] LABORATORYCLIA [id number] [address] Neutrophils/100 WBC (Bld) 72.0 % Normal [facility] Comment on above: Order Comment: Speci men Type: BLOOD SPECIMENOrdering Facility: [facility] Address: [address] [place] [address] Performed By: #### 5 7021-8 ####[facility] LABORATORYCLIA [id number] [address] [place] Nucleated RBC (Bld) [#/Vol] 10*3/uL Normal <0.01 [facility] Comment on above: Order Comment: Speci men Type: BLOOD SPECIMENOrdering Facility: [facility] Address: [address] [place] [address] Performed By: #### 5 7021-8 ####[facility] LABORATORYCLIA [id number] [address] [place] Nucleated RBC/100 WBC (Bld) [Ratio] 0.0 /100 WBC Normal [facility] Comment on above: Order Comment: Speci men Type: BLOOD SPECIMENOrdering Facility: [facility] Address: [address] [place] [address] Performed By: #### 5 7021-8 ####[facility] LABORATORYCLIA [id number] [address] [place] Platelet mean volume (Bld) [Entitic vol] 10.9 fL Normal 9.0-12.7 [facility] Comment on above: Order Comment: Speci men Type: BLOOD SPECIMENOrdering Facility: [facility] Address: [address] [place] [address] Performed By: #### 5 7021-8 ####[facility] LABORATORYCLIA [id number] [address] Platelets (Bld) [#/Vol] 303 10*3/uL Normal 150-400 [facility] Comment on above: Order Comment: Speci men Type: BLOOD SPECIMENOrdering Facility: [facility] Address: [address] [place] [address] Performed By: #### 5 7021-8 ####[facility] LABORATORYCLIA [id number] [address] STATES OF [facility] RBC (Bld) [#/Vol] 3.24 10*6/uL Low 4.20-6.00 [facility] Comment on above: Order Comment: Speci men Type: BLOOD SPECIMENOrdering Facility: [facility] Address: [address] [place] [address] Performed By: #### 5 7021-8 ####[facility] LABORATORYCLIA [id number] [address] STATES OF [facility] WBC (Bld) [#/Vol] 11.30 10*3/uL High 3.70-11.00 [facility] Comment on above: Order Comment: Speci men Type: BLOOD SPECIMENOrdering Facility: [facility] Address: [address] [place] [address] Performed By: #### 5 7021-8 ####[facility] LABORATORYCLIA [id number] [address] [place] NURSING PROGon 07-31-2021 NURSING PROG Normal [facility] aPTT PPPon 07-31-2021 aPTT Coag (PPP) [Time] 64.9 s High 23.0-32.4 [facility] Comment on above: Order Comment: Speci men Type: BLOOD SPECIMENOrdering Facility: [facility] Address: [address] [place] [address] Performed By: #### 1 4979-9 ####[facility] LABORATORYCLIA [id number] [place] [address] [place] ALLIED HEALTHon 07-30-2021 ALLIED HEALTH Normal [facility] Bacteria CSF Culton 07-31-19 22 Bacteria identified Cx Nom (CSF) CULTURE, CSF: No growth 14 days GRAM STAIN: No organisms seen Few Mononuclear cells Rare Polymorphonuclear leukocytes Gram stain performed on cytospun specimen. Normal [facility] Comment on above: Performed By: #### 6 06-4 ####[facility] LABORATORYCLIA [id number] [address] STATES [place] Basic metabolic 2000 panelon 07-30-2021 Anion gap [Moles/Vol] 9 mmol/L Normal 9-18 [facility] Comment on above: Order Comment: Speci men Type: BLOOD SPECIMENOrdering Facility: [facility] Address: [address] [place] [address] Performed By: #### 2 777-1, 83387-6, ####[facility] LABORATORYCLIA [id number] [place] [address] [place] Calcium [Mass/Vol] 8.9 mg/dL Normal 8.5-10.2 [facility] Comment on above: Order Comment: Speci men Type: BLOOD SPECIMENOrdering Facility: [facility] Address: [address] [place] [address] Performed By: #### 2 777-1, 46941-6, ####[facility] LABORATORYCLIA [id number] [place] [address] [place] Chloride [Moles/Vol] 95 mmol/L Low 97-105 [facility] Comment on above: Order Comment: Speci men Type: BLOOD SPECIMENOrdering Facility: [facility] Address: [address] [place] [address] Performed By: #### 2 777-1, , ####[facility] LABORATORYCLIA [id number] [place] [address] [place] CO2 [Moles/Vol] 28 mmol/L Normal 22-30 [facility] Comment on above: Order Comment: Speci men Type: BLOOD SPECIMENOrdering Facility: [facility] Address: [address] [place] [address] Performed By: #### 2 777-1, , ####[facility] LABORATORYCLIA [id number] [place] [address] [place] [facility] Creatinine [Mass/Vol] 0.67 mg/dL Low 0.73-1.22 [facility] Comment on above: Order Comment: Speci men Type: BLOOD SPECIMENOrdering Facility: [facility] Address: [address] [place] [address] Performed By: #### 2 777-1, , ####[facility] LABORATORYCLIA [id number] [address] STATES OF [facility] ESTIMATED GLOMERULAR FILTRATION RATE 101 mL/min/1.73m??? Normal >=60 [facility] Comment on above: Order Comment: Speci men Type: BLOOD SPECIMENOrdering Facility: [facility] Address: [address] [place] [address] Result Comment: Luzmaria mated Glomerular Filtration Rate [...] GFR. Performed By: #### 2 777-1, , ####[facility] LABORATORYCLIA [id number] [place] [address] [place] Glucose [Mass/Vol] 125 mg/dL High 74-99 [facility] Comment on above: Order Comment: Speci men Type: BLOOD SPECIMENOrdering Facility: [facility] Address: [address] [place], [place] [address] Result Comment: The [place] [employer] (ADA) provides guidance for cutoff [...] Standards of Medical Care in Diabetes 2016, [place] [employer]. Diabetes Care. 2016.39(Suppl 1). Performed By: #### 2 777-1, 79752-5, ####[facility] LABORATORYCLIA [id number] [place] [address] [place] Potassium [Moles/Vol] 3.9 mmol/L Normal 3.7-5.1 [facility] Comment on above: Order Comment: Shira francia Type: BLOOD SPECIMENOrdering Facility: [facility] Address: [address] [place], [place] [address] Performed By: #### 2 777-1, 95363-0, ####[facility] LABORATORYCLIA [id number] [place] [address] [place] Sodium [Moles/Vol] 132 mmol/L Low 136-144 [facility] Comment on above: Order Comment: Speci men Type: BLOOD SPECIMENOrdering Facility: [facility] Address: [address] [place], [place] [address] Performed By: #### 2 777-1, , ####[facility] LABORATORYCLIA [id number] [place] [address] [place] Urea nitrogen [Mass/Vol] 38 mg/dL High 9-24 [facility] Comment on above: Order Comment: Speci men Type: BLOOD SPECIMENOrdering Facility: [facility] Address: [address] [place] [address] Performed By: #### 2 777-1, 28779-3, 86712-6 ####[facility] LABORATORYCLIA [id number] [address] STATES OF [facility] CBC W Auto Differential pane l (Bld)on 07-30-2021 Basophils (Bld) [#/Vol] 0.04 10*3/uL Normal <0.11 [facility] Comment on above: Order Comment: Speci men Type: BLOOD SPECIMENOrdering Facility: [facility] Address: [address] [place] [address] Performed By: #### 5 7021-8 ####[facility] LABORATORYCLIA [id number] [address] STATES [facility] Basophils/100 WBC (Bld) 0.4 % Normal [facility] Comment on above: Order Comment: Speci men Type: BLOOD SPECIMENOrdering Facility: [facility] Address: [address] [place] [address] Performed By: #### 5 7021-8 ####[facility] LABORATORYCLIA [id number] [address] Differential cell count method Nom (Bld) Auto Normal [facility] Comment on above: Order Comment: Speci men Type: BLOOD SPECIMENOrdering Facility: [facility] Address: [address] [place] [address] Performed By: #### 5 7021-8 ####[facility]ORATORYCLIA [id number] [address] STATES OF [facility] Eosinophils (Bld) [#/Vol] 0.30 10*3/uL Normal <0.46 [facility] Comment on above: Order Comment: Speci men Type: BLOOD SPECIMENOrdering Facility: [facility] Address: [address] [place] [address] Performed By: #### 5 7021-8 ####[facility]ORATORYCLIA [id number] [address] Eosinophils/100 WBC (Bld) 2.7 % Normal [facility] Comment on above: Order Comment: Speci men Type: BLOOD SPECIMENOrdering Facility: [facility] Address: [address] [place] [address] Performed By: #### 5 7021-8 ####[facility] LABORATORYCLIA [id number] [address] Erythrocyte distribution width (RBC) [Ratio] 17.2 % High 11.5-15.0 [facility] Comment on above: Order Comment: Speci men Type: BLOOD SPECIMENOrdering Facility: [facility] Address: [address] [place] [address] Performed By: #### 5 7021-8 ####[facility] LABORATORYCLIA [id number] [address] Hematocrit (Bld) [Volume fraction] 30.8 % Low 39.0-51.0 [facility] Comment on above: Order Comment: Speci men Type: BLOOD SPECIMENOrdering Facility: [facility] Address: [address] [place] [address] Performed By: #### 5 7021-8 ####[facility] LABORATORYCLIA [id number] [address] [place] Hemoglobin (Bld) [Mass/Vol] 9.4 g/dL Low 13.0-17.0 [facility] Comment on above: Order Comment: Speci men Type: BLOOD SPECIMENOrdering Facility: [facility] Address: [address] [place] [address] Performed By: #### 5 7021-8 ####[facility] LABORATORYCLIA [id number] [address] IMMATURE GRAN % 0.5 % Normal [facility] Comment on above: Order Comment: Speci men Type: BLOOD SPECIMENOrdering Facility: [facility] Address: [address] [place] [address] Performed By: #### 5 7021-8 ####[facility] LABORATORYCLIA [id number] [address] IMMATURE GRAN ABS 0.06 k/uL Normal <0.10 [facility] Comment on above: Order Comment: Speci men Type: BLOOD SPECIMENOrdering Facility: [facility] Address: [address] [place] [address] Performed By: #### 5 7021-8 ####[facility] LABORATORYCLIA [id number] [address] Lymphocytes (Bld) [#/Vol] 1.68 10*3/uL Normal 1.00-4.00 [facility] Comment on above: Order Comment: Speci men Type: BLOOD SPECIMENOrdering Facility: [facility] Address: [address] [place] [address] Performed By: #### 5 7021-8 ####[facility] LABORATORYCLIA [id number] [address] Lymphocytes/100 WBC (Bld) 15.3 % Normal [facility] Comment on above: Order Comment: Speci men Type: BLOOD SPECIMENOrdering Facility: [facility] Address: [address] [place] [address] Performed By: #### 5 7021-8 ####[facility] LABORATORYCLIA [id number] [address] MCH (RBC) [Entitic mass] 28.0 pg Normal 26.0-34.0 [facility] Comment on above: Order Comment: Speci men Type: BLOOD SPECIMENOrdering Facility: [facility] Address: [address] [place] [address] Performed By: #### 5 7021-8 ####[facility] LABORATORYCLIA [id number] [address] STATES [place] MCHC (RBC) [Mass/Vol] 30.5 g/dL Normal 30.5-36.0 [facility] Comment on above: Order Comment: Speci men Type: BLOOD SPECIMENOrdering Facility: [facility] Address: [address] [place] [address] Performed By: #### 5 7021-8 ####[facility] LABORATORYCLIA [id number] [address] STATES [place] MCV (RBC) [Entitic vol] 91.7 fL Normal 80.0-100.0 [facility] Comment on above: Order Comment: Speci men Type: BLOOD SPECIMENOrdering Facility: [facility] Address: [address] [place] [address] Performed By: #### 5 7021-8 ####[facility] LABORATORYCLIA [id number] [place] [address] [place] Monocytes (Bld) [#/Vol] 0.53 10*3/uL Normal <0.87 [facility] Comment on above: Order Comment: Speci men Type: BLOOD SPECIMENOrdering Facility: [facility] Address: [address] [place] [address] Performed By: #### 5 7021-8 ####[facility] LABORATORYCLIA [id number] [address] [place] Monocytes/100 WBC (Bld) 4.8 % Normal [facility] Comment on above: Order Comment: Speci men Type: BLOOD SPECIMENOrdering Facility: [facility] Address: [address] [place] [address] Performed By: #### 5 7021-8 ####[facility] LABORATORYCLIA [id number] [address] STATES [place] Neutrophils (Bld) [#/Vol] 8.39 10*3/uL High 1.45-7.50 [facility] Comment on above: Order Comment: Speci men Type: BLOOD SPECIMENOrdering Facility: [facility] Address: [address] [place] [address] Performed By: #### 5 7021-8 ####[facility] LABORATORYCLIA [id number] [address] Neutrophils/100 WBC (Bld) 76.3 % Normal [facility] Comment on above: Order Comment: Speci men Type: BLOOD SPECIMENOrdering Facility: [facility] Address: [address] [address] Performed By: #### 5 7021-8 ####[facility] LABORATORYCLIA [id number] [address] [place] Nucleated RBC (Bld) [#/Vol] 10*3/uL Normal <0.01 [facility] Comment on above: Order Comment: Speci men Type: BLOOD SPECIMENOrdering Facility: [facility] Address: [address] [place] [address] Performed By: #### 5 7021-8 ####[facility] LABORATORYCLIA [id number] [address] OF [facility] Nucleated RBC/100 WBC (Bld) [Ratio] 0.0 /100 WBC Normal [facility] Comment on above: Order Comment: Speci men Type: BLOOD SPECIMENOrdering Facility: [facility] Address: [address] [place] [address] Performed By: #### 5 7021-8 ####[facility] LABORATORYCLIA [id number] [address] [place] Platelet mean volume (Bld) [Entitic vol] 10.9 fL Normal 9.0-12.7 [facility] Comment on above: Order Comment: Speci men Type: BLOOD SPECIMENOrdering Facility: [facility] Address: [address] Performed By: #### 5 7021-8 ####[facility] LABORATORYCLIA [id number] [address] [place] Platelets (Bld) [#/Vol] 287 10*3/uL Normal 150-400 [facility] Comment on above: Order Comment: Speci men Type: BLOOD SPECIMENOrdering Facility: [facility] Address: [address] [place] [address] Performed By: #### 5 7021-8 ####[facility] LABORATORYCLIA [id number] [address] OF [facility] RBC (Bld) [#/Vol] 3.36 10*6/uL Low 4.20-6.00 [facility] Comment on above: Order Comment: Speci men Type: BLOOD SPECIMENOrdering Facility: [facility] Address: [address] [place] [address] Performed By: #### 5 7021-8 ####[facility] LABORATORYCLIA [id number] [address] WBC (Bld) [#/Vol] 11.00 10*3/uL Normal 3.70-11.00 [facility] Comment on above: Order Comment: Speci men Type: BLOOD SPECIMENOrdering Facility: [facility] Address: [address] [place] [address] Performed By: #### 5 7021-8 ####[facility] LABORATORYCLIA [id number] [address] CSF MANUAL DIFFon 07-30-2021 DIF TTL, CSF 100 cells counted Normal [facility] Comment on above: Order Comment: Speci men Type: CEREBROSPINAL FLUIDOrdering Facility: [facility] Address: [address] [place] [address] Performed By: #### L [id number], [id number], 62270-1 ####[facility] LABORATORYCLIA [id number] [address] EOSIN%, CSF 0 % Normal [facility] Comment on above: Order Comment: Speci men Type: CEREBROSPINAL FLUIDOrdering Facility: [facility] Address: [address] [place] [address] Performed By: #### L [id number], LBI5730, 48458-4 ####[facility] LABORATORYCLIA [id number] [address] [place] LYMPH%, CSF 75 % Normal 50-90 [facility] Comment on above: Order Comment: Speci men Type: CEREBROSPINAL FLUIDOrdering Facility: [facility] Address: [address] [address] Performed By: #### L [id number], HUG5828, 70666-2 ####[facility]ORATORYCLIA [id number] [place] [address] [place] MACRO%, CSF 9 % High <1 [facility] Comment on above: Order Comment: Speci men Type: CEREBROSPINAL FLUIDOrdering Facility: [facility] Address: [address] [place] [address] Performed By: #### L [id number], DVM3702, 57312-7 ####[facility]ORATORYCLIA [id number] [place] [address] [place] MONO%, CSF 10 % Normal 10-50 [facility] Comment on above: Order Comment: Speci men Type: CEREBROSPINAL FLUIDOrdering Facility: [facility] Address: [address] [place] [address] Performed By: #### L [id number], ZXF3893, 89534-6 ####[facility]ORATORYCLIA [id number] [address] [place] OTHER CL%, CSF 4 % Normal [facility] Comment on above: Order Comment: Speci men Type: CEREBROSPINAL FLUIDOrdering Facility: [facility] Address: [address] [place] [address] Result Comment: Path review to follow. Performed By: #### L [id number], DHQ3311, 35565-3 ####[facility]ORATORYCLIA [id number] [place] [address] [place] REAC LYMPH %, CSF 2 % Normal [facility] Comment on above: Order Comment: Speci men Type: CEREBROSPINAL FLUIDOrdering Facility: [facility] Address: [address] [place] [address] Performed By: #### L [id number], RTS2888, 47294-8 ####[facility]ORATORYCLIA [id number] [address] CSF PATHOLOGIST INTERP (LAB REFLEX ORDER-NO BILL)on 07-30-2021 CSF STAFF REVIEW Negative Normal [facility] Comment on above: Order Comment: Speci men Type: CEREBROSPINAL FLUIDOrdering Facility: [facility] Address: [address] [place] [address] Performed By: #### L [id number], YGI0302, 28161-4 ####[facility] LABORATORYCLIA [id number] [address] Pathologist name Reviewed by Eloise rebolledo MD [facility] Comment on above: Order Comment: Speci men Type: CEREBROSPINAL FLUIDOrdering Facility: [facility] Address: [address] [place] [address] Performed By: #### L [id number], AHQ6933, 16314-9 ####[facility] LABORATORYCLIA [id number] [address] BRAIN WO IVCONon 07-31-19 CT BRAIN WO IVCON Normal [facility] Cell count panel (CSF)on Clarity (CSF) Clear Normal Clear [facility] Comment on above: Order Comment: Speci men Type: CEREBROSPINAL FLUIDOrdering Facility: [facility] Address: [address] [place] [address] Performed By: #### L [id number], WOK4695, 62314-0 ####[facility] LABORATORYCLIA [id number] [address] OF [facility] Clarity (Unsp spec) Clear Normal Clear [facility] Comment on above: Order Comment: Speci men Type: CEREBROSPINAL FLUIDOrdering Facility: [facility] Address: [address] [place] [address] Performed By: #### L [id number], LEP5957, 35671-0 ####[facility]ORATORYCLIA [id number] [address] Color (CSF) Colorless Normal Colorless [facility] Comment on above: Order Comment: Speci men Type: CEREBROSPINAL FLUIDOrdering Facility: [facility] Address: [facility] [place] [address] Performed By: #### L [id number], [id number], [id number] ####[facility]ORATORYCLIA [id number] [address] Color (Spun CSF) Colorless Normal Colorless [facility] Comment on above: Order Comment: Speci men Type: CEREBROSPINAL FLUIDOrdering Facility: [facility] Address: [address] [place] [address] Performed By: #### L [id number], [id number], [id number] ####[facility] LABORATORYCLIA [id number] [address] CSF TUBE NUMBER [employer] Normal [facility] Comment on above: Order Comment: Speci men Type: CEREBROSPINAL FLUIDOrdering Facility: [facility] Address: [address] [place] [address] Performed By: #### L [id number], [id number], 01090-9 ####[facility] LABORATORYCLIA [id number] [address] RBC Manual cnt (CSF) [#/Vol] 9 cells/uL High 0-5 [facility] Comment on above: Order Comment: Speci men Type: CEREBROSPINAL FLUIDOrdering Facility: [facility] Address: [address] [place] [address] Performed By: #### L [id number], SVN9750, 27753-7 ####[facility] LABORATORYCLIA [id number] [address] WBC Manual cnt (CSF) [#/Vol] 8 cells/uL High 0-5 [facility] Comment on above: Order Comment: Speci men Type: CEREBROSPINAL FLUIDOrdering Facility: [facility] Address: [address] [address] Performed By: #### L AC8532, JME9676, 77471-1 ####[facility]ORATORYCLIA [id number] [address] OF [facility] Glucose CSF-mCncon Glucose (CSF) [Mass/Vol] 65 mg/dL Normal 40-70 [facility] Comment on above: Order Comment: Speci men Type: CEREBROSPINAL FLUIDOrdering Facility: [facility] Address: [address] [place] [address] Result Comment: Lumb ar CSF glucose values of healthy patients are approximately 60% of the plasma values and must always be compared with a concurrently measured plasma value for adequate clinical interpretation.References: 1. Glucose HK (GLUC3) [package insert V 12.0 Burkinan]. [employer], [place], [place]. September 2015. 2. Michelle Moore, Loki H. (2015). Chapter 7: Glucose and Lactate. Marianela Rothman.(eds.), Cerebrospinal Fluid in Clinical Neurology. Stewart: [place]. Performed By: #### 2 342-4, 2880-3 ####[facility] LABORATORYCLIA [id number] [address] Magnesium SerPl-[facility]ly [facility] 07-30 Magnesium [Mass/Vol] 2.5 mg/dL High 1.7-2.3 [facility] Comment on above: Order Comment: Speci men Type: BLOOD SPECIMENOrdering Facility: [facility] Address: [address] [place] [address] Performed By: #### 2 777-1, 82056-1, 19161-7 ####[facility]ORATORYCLIA [id number] [address] [place] NURSING PROGon 07-30-2021 NURSING PROG Normal [facility] Phosphate SerPl-ncon 07-30 Phosphate [Mass/Vol] 2.4 mg/dL Low 2.7-4.8 [facility] Comment on above: Order Comment: Speci men Type: BLOOD SPECIMENOrdering Facility: [facility] Address: [address] [place], [place] [address] Performed By: #### 2 777-1, 39549-8, 61221-3 ####[facility] LABORATORYCLIA [id number] [place] [address] [place] Prot CSF-mCncon 07-30-2021 Protein (CSF) [Mass/Vol] 50 mg/dL High 15-45 [facility] Comment on above: Order Comment: Speci men Type: CEREBROSPINAL FLUIDOrdering Facility: [facility] Address: [address] [place] [address] Performed By: #### 2 342-4, 2880-3 ####[facility] LABORATORYCLIA [id number] [address] STATES [place] aPTT PPPon 07-30-2021 aPTT Coag (PPP) [Time] 64.1 s High 23.0-32.4 [facility] Comment on above: Order Comment: Speci men Type: BLOOD SPECIMENOrdering Facility: [facility] Address: [address] [place] [address] Performed By: #### 1 4979-9 ####[facility] HE[facility] SERVICESCLIA [id number] [address] OF [place] Bacteria CSF Culton 07-30-19 22 Bacteria identified Cx Nom (CSF) CULTURE, CSF: No growth 14 days GRAM STAIN: No cells or organisms seen Gram stain performed on cytospun specimen. Gram stain confirmed by microbiology Normal [facility] Comment on above: Performed By: #### 6 06-4 ####[facility] LABORATORYCLIA [id number] [address] STATES [place] CASE MANAGEMon 07-29-2021 CASE MANAGEM Normal [facility] CBC W Auto Differential pane l (Bld)on 07-29-2021 Basophils (Bld) [#/Vol] 0.03 10*3/uL Normal <0.11 [facility] Comment on above: Order Comment: Speci men Type: BLOOD SPECIMENOrdering Facility: [facility] Address: [address] [place] [address] Performed By: #### 5 7021-8 ####[facility] LABORATORYCLIA [id number] [address] STATES [facility] Basophils/100 WBC (Bld) 0.3 % Normal [facility] Comment on above: Order Comment: Speci men Type: BLOOD SPECIMENOrdering Facility: [facility] Address: [address] [place] [address] Performed By: #### 5 7021-8 ####[facility] LABORATORYCLIA [id number] [address] OF [place] Differential cell count method Nom (Bld) Auto Normal [facility] Comment on above: Order Comment: Speci men Type: BLOOD SPECIMENOrdering Facility: [facility] Address: [address] [place] [address] Performed By: #### 5 7021-8 ####[facility]ORATORYCLIA [id number] [address] [place] Eosinophils (Bld) [#/Vol] 0.40 10*3/uL Normal <0.46 [facility] Comment on above: Order Comment: Speci men Type: BLOOD SPECIMENOrdering Facility: [facility] Address: [address] [place] [address] Performed By: #### 5 7021-8 ####[facility] LABORATORYCLIA [id number] [address] Eosinophils/100 WBC (Bld) 3.9 % Normal [facility] Comment on above: Order Comment: Speci men Type: BLOOD SPECIMENOrdering Facility: [facility] Address: [address] [place] [address] Performed By: #### 5 7021-8 ####[facility] LABORATORYCLIA [id number] [address] [place] Erythrocyte distribution width (RBC) [Ratio] 17.1 % High 11.5-15.0 [facility] Comment on above: Order Comment: Speci men Type: BLOOD SPECIMENOrdering Facility: [facility] Address: [address] [place] [address] Performed By: #### 5 7021-8 ####[facility]ORATORYCLIA [id number] [address] Hematocrit (Bld) [Volume fraction] 32.0 % Low 39.0-51.0 [facility] Comment on above: Order Comment: Speci men Type: BLOOD SPECIMENOrdering Facility: [facility] Address: [address] [place] [address] Performed By: #### 5 7021-8 ####[facility]ORATORYCLIA [id number] [address] Hemoglobin (Bld) [Mass/Vol] 9.7 g/dL Low 13.0-17.0 [facility] Comment on above: Order Comment: Speci men Type: BLOOD SPECIMENOrdering Facility: [facility] Address: [address] [place] [address] Performed By: #### 5 7021-8 ####[facility] LABORATORYCLIA [id number] [address] IMMATURE GRAN % 0.6 % Normal [facility] Comment on above: Order Comment: Speci men Type: BLOOD SPECIMENOrdering Facility: [facility] Address: [address] [place] [address] Performed By: #### 5 7021-8 ####[facility]ORATORYCLIA [id number] [address] IMMATURE GRAN ABS 0.06 k/uL Normal <0.10 [facility] Comment on above: Order Comment: Speci men Type: BLOOD SPECIMENOrdering Facility: [facility] Address: [address] [place] [address] Performed By: #### 5 7021-8 ####[facility]ORATORYCLIA [id number] [address] Lymphocytes (Bld) [#/Vol] 1.96 10*3/uL Normal 1.00-4.00 [facility] Comment on above: Order Comment: Speci men Type: BLOOD SPECIMENOrdering Facility: [facility] Address: [address] [place] [address] Performed By: #### 5 7021-8 ####[facility] LABORATORYCLIA [id number] [address] Lymphocytes/100 WBC (Bld) 19.0 % Normal [facility] Comment on above: Order Comment: Speci men Type: BLOOD SPECIMENOrdering Facility: [facility] Address: [address] [place] [address] Performed By: #### 5 7021-8 ####[facility]ORATORYCLIA [id number] [address] STATES [facility] MCH (RBC) [Entitic mass] 28.0 pg Normal 26.0-34.0 [facility] Comment on above: Order Comment: Speci men Type: BLOOD SPECIMENOrdering Facility: [facility] Address: [address] [place] [address] Performed By: #### 5 7021-8 ####[facility] LABORATORYCLIA [id number] [address] STATES [facility] MCHC (RBC) [Mass/Vol] 30.3 g/dL Low 30.5-36.0 [facility] Comment on above: Order Comment: Speci men Type: BLOOD SPECIMENOrdering Facility: [facility] Address: [address] [place] [address] Performed By: #### 5 7021-8 ####[facility] LABORATORYCLIA [id number] [address] MCV (RBC) [Entitic vol] 92.5 fL Normal 80.0-100.0 [facility] Comment on above: Order Comment: Speci men Type: BLOOD SPECIMENOrdering Facility: [facility] Address: [address] [place] [address] Performed By: #### 5 7021-8 ####[facility]ORATORYCLIA [id number] [address] Monocytes (Bld) [#/Vol] 0.53 10*3/uL Normal <0.87 [facility] Comment on above: Order Comment: Speci men Type: BLOOD SPECIMENOrdering Facility: [facility] Address: [address] [place] [address] Performed By: #### 5 7021-8 ####[facility]ORATORYCLIA [id number] [address] [place] Monocytes/100 WBC (Bld) 5.2 % Normal [facility] Comment on above: Order Comment: Speci men Type: BLOOD SPECIMENOrdering Facility: [facility] Address: [address] [place] [address] Performed By: #### 5 7021-8 ####[facility]ORATORYCLIA [id number] [address] [place] Neutrophils (Bld) [#/Vol] 7.31 10*3/uL Normal 1.45-7.50 [facility] Comment on above: Order Comment: Speci men Type: BLOOD SPECIMENOrdering Facility: [facility] Address: [address] [place] [address] Performed By: #### 5 7021-8 ####[facility]ORATORYCLIA [id number] [address] STATES OF [facility] Neutrophils/100 WBC (Bld) 71.0 % Normal [facility] Comment on above: Order Comment: Speci men Type: BLOOD SPECIMENOrdering Facility: [facility] Address: [address] [place] [address] Performed By: #### 5 7021-8 ####[facility]ORATORYCLIA [id number] [address] [place] Nucleated RBC (Bld) [#/Vol] 10*3/uL Normal <0.01 [facility] Comment on above: Order Comment: Speci men Type: BLOOD SPECIMENOrdering Facility: [facility] Address: [address] [place] [address] Performed By: #### 5 7021-8 ####[facility]ORATORYCLIA [id number] [address] [place] Nucleated RBC/100 WBC (Bld) [Ratio] 0.0 /100 WBC Normal [facility] Comment on above: Order Comment: Speci men Type: BLOOD SPECIMENOrdering Facility: [facility] Address: [address] [place] [address] Performed By: #### 5 7021-8 ####[facility]ORATORYCLIA [id number] [place] [address] [place] Platelet mean volume (Bld) [Entitic vol] 11.2 fL Normal 9.0-12.7 [facility] Comment on above: Order Comment: Speci men Type: BLOOD SPECIMENOrdering Facility: [facility] Address: [address] [place] [address] Performed By: #### 5 7021-8 ####[facility]ORATORYCLIA [id number] [address] [place] Platelets (Bld) [#/Vol] 276 10*3/uL Normal 150-400 [facility] Comment on above: Order Comment: Speci men Type: BLOOD SPECIMENOrdering Facility: [facility] Address: [address] [place] [address] Performed By: #### 5 7021-8 ####[facility]ORATORYCLIA [id number] [place] [address] [place] RBC (Bld) [#/Vol] 3.46 10*6/uL Low 4.20-6.00 [facility] Comment on above: Order Comment: Speci men Type: BLOOD SPECIMENOrdering Facility: [facility] Address: [address] [place] [address] Performed By: #### 5 7021-8 ####[facility]ORATORYCLIA [id number] [address] [place] WBC (Bld) [#/Vol] 10.29 10*3/uL Normal 3.70-11.00 [facility] Comment on above: Order Comment: Speci men Type: BLOOD SPECIMENOrdering Facility: [facility] Address: [facility] [place] [address] Performed By: #### 5 7021-8 ####[facility]ORATORYCLIA [id number] [address] NURSING PROGon 07-29-2021 NURSING PROG Normal [facility] THERAPY NTon 07-29-2021 THERAPY NT Normal [facility] aPTT PPPon 07-29-2021 aPTT Coag (PPP) [Time] 59.2 s High 23.0-32.4 [facility] Comment on above: Order Comment: Speci men Type: BLOOD SPECIMENOrdering Facility: [facility] Address: [address] [place] [address] Performed By: #### 1 4979-9 ####[facility]ORATORYCLIA [id number] [address] [place] ALLIED HEALTHon 07-28-2021 ALLIED HEALTH Normal [facility] Basic metabolic 2000 panelon 07-28-2021 Anion gap [Moles/Vol] 7 mmol/L Low 9-18 [facility] Comment on above: Order Comment: Speci men Type: BLOOD SPECIMENOrdering Facility: [facility] Address: [address] [place] [address] Performed By: #### 1 4338-8, 96409-3, 2777-1, 24509-9 ####[facility]ORATORYCLIA [id number] [place] [address] [place] Calcium [Mass/Vol] 9.0 mg/dL Normal 8.5-10.2 [facility] Comment on above: Order Comment: Speci men Type: BLOOD SPECIMENOrdering Facility: [facility] Address: [address] [place] [address] Performed By: #### 1 4338-8, 89764-8, 2777-1, 55594-7 ####[facility]ORATORYCLIA [id number] [place] [address] [place] Chloride [Moles/Vol] 94 mmol/L Low 97-105 [facility] Comment on above: Order Comment: Speci men Type: BLOOD SPECIMENOrdering Facility: [facility] Address: [address] [place] [address] Performed By: #### 1 4338-8, 41676-7, 2777-1, 37510-7 ####[facility]ORATORYCLIA [id number] [place] [address] [place] CO2 [Moles/Vol] 31 mmol/L High 22-30 [facility] Comment on above: Order Comment: Speci men Type: BLOOD SPECIMENOrdering Facility: [facility] Address: [address] [place] [address] Performed By: #### 1 4338-8, 05191-4, 2777-1, 67507-1 ####[facility]ORATORYCLIA [id number] [address] STATES OF [facility] Creatinine [Mass/Vol] 0.75 mg/dL Normal 0.73-1.22 [facility] Comment on above: Order Comment: Speci men Type: BLOOD SPECIMENOrdering Facility: [facility] Address: [address] [place] [address] Performed By: #### 1 4338-8, 51194-4, 277-1, 84028-7 ####[facility]ORATORYCLIA [id number] [address] STATES OF [facility] ESTIMATED GLOMERULAR FILTRATION RATE 98 mL/min/1.73m??? Normal >=60 [facility] Comment on above: Order Comment: Speci men Type: BLOOD SPECIMENOrdering Facility: [facility] Address: [address] [place] [address] Result Comment: Luzmaria mated Glomerular Filtration Rate [...] actual GFR. Performed By: #### 1 4338-8, 41913-2, 2777-1, 76405-5 ####[facility]ORATORYCLIA [id number] [place] [address] [place] Glucose [Mass/Vol] 122 mg/dL High 74-99 [facility] Comment on above: Order Comment: Speci men Type: BLOOD SPECIMENOrdering Facility: [facility] Address: [address] [place], [place] [address] Result Comment: The [place] [employer] (ADA) provides guidance for cutoff [...] Standards of Medical Care in Diabetes 2016, [place] [employer]. Diabetes Care. 2016.39(Suppl 1). Performed By: #### 1 4338-8, 58373-1, 2776-05, 40821-3 ####[facility]ORATORYCLIA [id number] [place] [address] [place] Potassium [Moles/Vol] 4.0 mmol/L Normal 3.7-5.1 [facility] Comment on above: Order Comment: Speci men Type: BLOOD SPECIMENOrdering Facility: [facility] Address: [address] [place] [address] Performed By: #### 1 4338-8, 14321-5, 277-, 69785-0 ####[facility]ORATORYCLIA [id number] [place] [address] [place] Sodium [Moles/Vol] 132 mmol/L Low 136-144 [facility] Comment on above: Order Comment: Speci men Type: BLOOD SPECIMENOrdering Facility: [facility] Address: [address] [address] Performed By: #### 1 4338-8, 20884-8, 2777-1, 96825-1 ####[facility]ORATORYCLIA [id number] [address] STATES [facility] Urea nitrogen [Mass/Vol] 34 mg/dL High 01-28 [facility] Comment on above: Order Comment: Speci men Type: BLOOD SPECIMENOrdering Facility: [facility] Address: [address] [place] [address] Performed By: #### 1 4338-8, 44169-7, 2777-1, 31012-7 ####[facility]ATORYCLIA [id number] [address] [place] CBC W Auto Differential pane l (Bld)on 07-28-2021 Basophils (Bld) [#/Vol] 0.04 10*3/uL Normal <0.11 [facility] Comment on above: Order Comment: Speci men Type: BLOOD SPECIMENOrdering Facility: [facility] Address: [address] [place] [address] Performed By: #### 5 7021-8 ####[facility]ORATORYCLIA [id number] [address] [place] Basophils/100 WBC (Bld) 0.5 % Normal [facility] Comment on above: Order Comment: Speci men Type: BLOOD SPECIMENOrdering Facility: [facility] Address: [address] [place] [address] Performed By: #### 5 7021-8 ####[facility]ORATORYCLIA [id number] [address] STATES [facility] Differential cell count method Nom (Bld) Auto Normal [facility] Comment on above: Order Comment: Speci men Type: BLOOD SPECIMENOrdering Facility: [facility] Address: [address] [place] [address] Performed By: #### 5 7021-8 ####[facility]ORATORYCLIA [id number] [address] [place] Eosinophils (Bld) [#/Vol] 0.30 10*3/uL Normal <0.46 [facility] Comment on above: Order Comment: Speci men Type: BLOOD SPECIMENOrdering Facility: [facility] Address: [address] [address] Performed By: #### 5 7021-8 ####[facility]ORATORYCLIA [id number] [address] [place] Eosinophils/100 WBC (Bld) 3.4 % Normal [facility] Comment on above: Order Comment: Speci men Type: BLOOD SPECIMENOrdering Facility: [facility] Address: [address] [place] [address] Performed By: #### 5 7021-8 ####[facility]ORATORYCLIA [id number] [address] Erythrocyte distribution width (RBC) [Ratio] 16.9 % High 11.5-15.0 [facility] Comment on above: Order Comment: Speci men Type: BLOOD SPECIMENOrdering Facility: [facility] Address: [address] [place] [address] Performed By: #### 5 7021-8 ####[facility]ORATORYCLIA [id number] [address] [place] Hematocrit (Bld) [Volume fraction] 30.3 % Low 39.0-51.0 [facility] Comment on above: Order Comment: Speci men Type: BLOOD SPECIMENOrdering Facility: [facility] Address: [address] [address] Performed By: #### 5 7021-8 ####[facility]ORATORYCLIA [id number] [address] [place] Hemoglobin (Bld) [Mass/Vol] 9.2 g/dL Low 13.0-17.0 [facility] Comment on above: Order Comment: Speci men Type: BLOOD SPECIMENOrdering Facility: [facility] Address: [address] [place], [place] [address] Performed By: #### 5 7021-8 ####[facility]ORATORYCLIA [id number] [address] IMMATURE GRAN % 0.6 % Normal [facility] Comment on above: Order Comment: Speci men Type: BLOOD SPECIMENOrdering Facility: [facility] Address: [address] [place] [address] Performed By: #### 5 7021-8 ####[facility]ORATORYCLIA [id number] [address] IMMATURE GRAN ABS 0.05 k/uL Normal <0.10 [facility] Comment on above: Order Comment: Speci men Type: BLOOD SPECIMENOrdering Facility: [facility] Address: [address] [place] [address] Performed By: #### 5 7021-8 ####[facility]ORATORYCLIA [id number] [address] Lymphocytes (Bld) [#/Vol] 1.68 10*3/uL Normal 1.00-4.00 [facility] Comment on above: Order Comment: Speci men Type: BLOOD SPECIMENOrdering Facility: [facility] Address: [address] [place] [address] Performed By: #### 5 7021-8 ####[facility]ORATORYCLIA [id number] [address] Lymphocytes/100 WBC (Bld) 19.2 % Normal [facility] Comment on above: Order Comment: Speci men Type: BLOOD SPECIMENOrdering Facility: [facility] Address: [address] [place] [address] Performed By: #### 5 7021-8 ####[facility]ORATORYCLIA [id number] [address] MCH (RBC) [Entitic mass] 28.4 pg Normal 26.0-34.0 [facility] Comment on above: Order Comment: Speci men Type: BLOOD SPECIMENOrdering Facility: [facility] Address: [address] [place] [address] Performed By: #### 5 7021-8 ####[facility]ORATORYCLIA [id number] [address] MCHC (RBC) [Mass/Vol] 30.4 g/dL Low 30.5-36.0 [facility] Comment on above: Order Comment: Speci men Type: BLOOD SPECIMENOrdering Facility: [facility] Address: [address] [place] [address] Performed By: #### 5 7021-8 ####[facility] LABORATORYCLIA [id number] [address] MCV (RBC) [Entitic vol] 93.5 fL Normal 80.0-100.0 [facility] Comment on above: Order Comment: Speci men Type: BLOOD SPECIMENOrdering Facility: [facility] Address: [address] [place] [address] Performed By: #### 5 7021-8 ####[facility]ORATORYCLIA [id number] [address] Monocytes (Bld) [#/Vol] 0.58 10*3/uL Normal <0.87 [facility] Comment on above: Order Comment: Speci men Type: BLOOD SPECIMENOrdering Facility: [facility] Address: [address] [place] [address] Performed By: #### 5 7021-8 ####[facility] LABORATORYCLIA [id number] [address] Monocytes/100 WBC (Bld) 6.6 % Normal [facility] Comment on above: Order Comment: Speci men Type: BLOOD SPECIMENOrdering Facility: [facility] Address: [address] [place] [address] Performed By: #### 5 7021-8 ####[facility] LABORATORYCLIA [id number] [address] [place] Neutrophils (Bld) [#/Vol] 6.11 10*3/uL Normal 1.45-7.50 [facility] Comment on above: Order Comment: Speci men Type: BLOOD SPECIMENOrdering Facility: [facility] Address: [address] [place] [address] Performed By: #### 5 7021-8 ####[facility] LABORATORYCLIA [id number] [address] Neutrophils/100 WBC (Bld) 69.7 % Normal [facility] Comment on above: Order Comment: Speci men Type: BLOOD SPECIMENOrdering Facility: [facility] Address: [address] [place] [address] Performed By: #### 5 7021-8 ####[facility] LABORATORYCLIA [id number] [address] [place] Nucleated RBC (Bld) [#/Vol] 10*3/uL Normal <0.01 [facility] Comment on above: Order Comment: Speci men Type: BLOOD SPECIMENOrdering Facility: [facility] Address: [address] [place] [address] Performed By: #### 5 7021-8 ####[facility] LABORATORYCLIA [id number] [address] Nucleated RBC/100 WBC (Bld) [Ratio] 0.0 /100 WBC Normal [facility] Comment on above: Order Comment: Speci men Type: BLOOD SPECIMENOrdering Facility: [facility] Address: [address] [place] [address] Performed By: #### 5 7021-8 ####[facility] LABORATORYCLIA [id number] [address] Platelet mean volume (Bld) [Entitic vol] 11.3 fL Normal 9.0-12.7 [facility] Comment on above: Order Comment: Speci men Type: BLOOD SPECIMENOrdering Facility: [facility] Address: [address] [place] [address] Performed By: #### 5 7021-8 ####[facility] LABORATORYCLIA [id number] [address] [place] Platelets (Bld) [#/Vol] 238 10*3/uL Normal 150-400 [facility] Comment on above: Order Comment: Speci men Type: BLOOD SPECIMENOrdering Facility: [facility] Address: [address] [place] [address] Performed By: #### 5 7021-8 ####[facility] LABORATORYCLIA [id number] [place] [address] [place] RBC (Bld) [#/Vol] 3.24 10*6/uL Low 4.20-6.00 [facility] Comment on above: Order Comment: Speci men Type: BLOOD SPECIMENOrdering Facility: [facility] Address: [address] [place] [address] Performed By: #### 5 7021-8 ####[facility] LABORATORYCLIA [id number] [address] [place] WBC (Bld) [#/Vol] 8.76 10*3/uL Normal 3.70-11.00 [facility] Comment on above: Order Comment: Speci men Type: BLOOD SPECIMENOrdering Facility: [facility] Address: [address] [place] [address] Performed By: #### 5 7021-8 ####[facility] LABORATORYCLIA [id number] [address] [place] MRI BRAIN WO/W IVCONon 07-28 MRI BRAIN WO/W IVCON Normal [facility] Magnesium SerPl-mCncon 07-28 Magnesium [Mass/Vol] 2.5 mg/dL High 1.7-2.3 [facility] Comment on above: Order Comment: Speci men Type: BLOOD SPECIMENOrdering Facility: [facility] Address: [address] [place] [address] Performed By: #### 1 4338-8, 24368-7, 2777-1, 38192-5 ####[facility]ORATORYCLIA [id number] [address] [place] NURSING PROGon 07-28-2021 NURSING PROG Normal [facility] NURSING PROG Normal [facility] Phosphate SerPl-mCncon 07-28 Phosphate [Mass/Vol] 2.8 mg/dL Normal 2.7-4.8 [facility] Comment on above: Order Comment: Speci men Type: BLOOD SPECIMENOrdering Facility: [facility] Address: [address] [place] [address] Performed By: #### 1 4338-8, 19323-8, 2777-1, 60521-8 ####[facility] LABORATORYCLIA [id number] [address] Prealbumin [Mass/Vol]on 07-06 Prealbumin Nephelometry [Mass/Vol] 25 mg/dL Normal 17-36 [facility] Comment on above: Order Comment: Speci men Type: BLOOD SPECIMENOrdering Facility: [facility] Address: [address] [place] [address] Performed By: #### 1 4338-8, 18649-2, 2777-1, 34263-7 ####[facility] LABORATORYCLIA [id number] [address] [place] aPTT PPPon 07-28-2021 aPTT Coag (PPP) [Time] 53.0 s High 23.0-32.4 [facility] Comment on above: Order Comment: Speci men Type: BLOOD SPECIMENOrdering Facility: [facility] Address: [address] [place] [address] Performed By: #### 1 4979-9 ####[facility] LABORATORYCLIA [id number] [address] [place] aPTT Coag (PPP) [Time] 57.2 s High 23.0-32.4 [facility] Comment on above: Order Comment: Speci men Type: BLOOD SPECIMENOrdering Facility: [facility] Address: [address] [address] Performed By: #### 1 4979-9 ####[facility] LABORATORYCLIA [id number] [address] OF [facility] Bacteria CSF Culton 07-28-19 Bacteria identified Cx Nom (CSF) CULTURE, CSF: No growth 14 days GRAM STAIN: No organisms seen Rare Polymorphonuclear leukocytes Rare Red Blood Cells Gram stain performed on cytospun specimen. Normal [facility] Comment on above: Performed By: #### 6 06-4 ####[facility] LABORATORYCLIA [id number] [address] [place] Bacteria Spec Resp Culton Bacteria identified Respiratory culture Nom (Unsp spec) CULTURE, RESPIRATORY: Rare Normal respiratory chris present GRAM STAIN: No organisms seen Rare Polymorphonuclear leukocytes Rare Epithelial cells Normal [facility] Comment on above: Performed By: #### 3 2355-0 ####[facility] LABORATORYCLIA [id number] [address] OF [facility] CASE MANAGEMon 07-27-2021 CASE MANAGEM Normal [facility] CBC W Auto Differential pane l (Bld)on 07-27-2021 Basophils (Bld) [#/Vol] 0.04 10*3/uL Normal <0.11 [facility] Comment on above: Order Comment: Speci men Type: BLOOD SPECIMENOrdering Facility: [facility] Address: [address] [place] [address] Performed By: #### 5 7021-8 ####[facility] LABORATORYCLIA [id number] [address] [place] Basophils/100 WBC (Bld) 0.4 % Normal [facility] Comment on above: Order Comment: Speci men Type: BLOOD SPECIMENOrdering Facility: [facility] Address: [facility] [address] Performed By: #### 5 7021-8 ####[facility] LABORATORYCLIA [id number] [address] Differential cell count method Nom (Bld) Auto Normal [facility] Comment on above: Order Comment: Speci men Type: BLOOD SPECIMENOrdering Facility: [facility] Address: [address] [place] [address] Performed By: #### 5 7021-8 ####[facility] LABORATORYCLIA [id number] [address] [place] Eosinophils (Bld) [#/Vol] 0.50 10*3/uL High <0.46 [facility] Comment on above: Order Comment: Speci men Type: BLOOD SPECIMENOrdering Facility: [facility] Address: [address] [place] [address] Performed By: #### 5 7021-8 ####[facility] LABORATORYCLIA [id number] [address] [place] Eosinophils/100 WBC (Bld) 5.2 % Normal [facility] Comment on above: Order Comment: Speci men Type: BLOOD SPECIMENOrdering Facility: [facility] Address: [address] [place] [address] Performed By: #### 5 7021-8 ####[facility] LABORATORYCLIA [id number] [address] [place] Erythrocyte distribution width (RBC) [Ratio] 16.8 % High 11.5-15.0 [facility] Comment on above: Order Comment: Speci men Type: BLOOD SPECIMENOrdering Facility: [facility] Address: [address] [place] [address] Performed By: #### 5 7021-8 ####[facility] LABORATORYCLIA [id number] [address] [place] Hematocrit (Bld) [Volume fraction] 29.8 % Low 39.0-51.0 [facility] Comment on above: Order Comment: Speci men Type: BLOOD SPECIMENOrdering Facility: [facility] Address: [address] [place] [address] Performed By: #### 5 7021-8 ####[facility]ORATORYCLIA [id number] [address] OF [facility] Hemoglobin (Bld) [Mass/Vol] 9.0 g/dL Low 13.0-17.0 [facility] Comment on above: Order Comment: Speci men Type: BLOOD SPECIMENOrdering Facility: [facility] Address: [address] [place] [address] Performed By: #### 5 7021-8 ####[facility] LABORATORYCLIA [id number] [address] IMMATURE GRAN % 0.6 % Normal [facility] Comment on above: Order Comment: Speci men Type: BLOOD SPECIMENOrdering Facility: [facility] Address: [address] [place] [address] Performed By: #### 5 7021-8 ####[facility] LABORATORYCLIA [id number] [address] IMMATURE GRAN ABS 0.06 k/uL Normal <0.10 [facility] Comment on above: Order Comment: Speci men Type: BLOOD SPECIMENOrdering Facility: [facility] Address: [address] [place] [address] Performed By: #### 5 7021-8 ####[facility] LABORATORYCLIA [id number] [address] Lymphocytes (Bld) [#/Vol] 1.73 10*3/uL Normal 1.00-4.00 [facility] Comment on above: Order Comment: Speci men Type: BLOOD SPECIMENOrdering Facility: [facility] Address: [address] [place] [address] Performed By: #### 5 7021-8 ####[facility] LABORATORYCLIA [id number] [address] Lymphocytes/100 WBC (Bld) 17.9 % Normal [facility] Comment on above: Order Comment: Speci men Type: BLOOD SPECIMENOrdering Facility: [facility] Address: [address] [place] [address] Performed By: #### 5 7021-8 ####[facility] LABORATORYCLIA [id number] [address] MCH (RBC) [Entitic mass] 28.1 pg Normal 26.0-34.0 [facility] Comment on above: Order Comment: Speci men Type: BLOOD SPECIMENOrdering Facility: [facility] Address: [address] [place] [address] Performed By: #### 5 7021-8 ####[facility] LABORATORYCLIA [id number] [address] MCHC (RBC) [Mass/Vol] 30.2 g/dL Low 30.5-36.0 [facility] Comment on above: Order Comment: Speci men Type: BLOOD SPECIMENOrdering Facility: [facility] Address: [address] [place] [address] Performed By: #### 5 7021-8 ####[facility] LABORATORYCLIA [id number] [address] MCV (RBC) [Entitic vol] 93.1 fL Normal 80.0-100.0 [facility] Comment on above: Order Comment: Speci men Type: BLOOD SPECIMENOrdering Facility: [facility] Address: [address] [place] [address] Performed By: #### 5 7021-8 ####[facility]ORATORYCLIA [id number] [address] Monocytes (Bld) [#/Vol] 0.59 10*3/uL Normal <0.87 [facility] Comment on above: Order Comment: Speci men Type: BLOOD SPECIMENOrdering Facility: [facility] Address: [address] [place] [address] Performed By: #### 5 7021-8 ####[facility]ORATORYCLIA [id number] [address] Monocytes/100 WBC (Bld) 6.1 % Normal [facility] Comment on above: Order Comment: Speci men Type: BLOOD SPECIMENOrdering Facility: [facility] Address: [address] [address] Performed By: #### 5 7021-8 ####[facility] LABORATORYCLIA [id number] [address] [place] Neutrophils (Bld) [#/Vol] 6.75 10*3/uL Normal 1.45-7.50 [facility] Comment on above: Order Comment: Speci men Type: BLOOD SPECIMENOrdering Facility: [facility] Address: [address] [place] [address] Performed By: #### 5 7021-8 ####[facility] LABORATORYCLIA [id number] [address] Neutrophils/100 WBC (Bld) 69.8 % Normal [facility] Comment on above: Order Comment: Speci men Type: BLOOD SPECIMENOrdering Facility: [facility] Address: [address] [place] [address] Performed By: #### 5 7021-8 ####[facility] LABORATORYCLIA [id number] [address] Nucleated RBC (Bld) [#/Vol] 10*3/uL Normal <0.01 [facility] Comment on above: Order Comment: Speci men Type: BLOOD SPECIMENOrdering Facility: [facility] Address: [address] [place] [address] Performed By: #### 5 7021-8 ####[facility]ORATORYCLIA [id number] [address] Nucleated RBC/100 WBC (Bld) [Ratio] 0.0 /100 WBC Normal [facility] Comment on above: Order Comment: Speci men Type: BLOOD SPECIMENOrdering Facility: [facility] Address: [address] [place] [address] Performed By: #### 5 7021-8 ####[facility]ORATORYCLIA [id number] [address] Platelet mean volume (Bld) [Entitic vol] 11.3 fL Normal 9.0-12.7 [facility] Comment on above: Order Comment: Speci men Type: BLOOD SPECIMENOrdering Facility: [facility] Address: [address] [place] [address] Performed By: #### 5 7021-8 ####[facility] LABORATORYCLIA [id number] [place] [address] [place] Platelets (Bld) [#/Vol] 227 10*3/uL Normal 150-400 [facility] Comment on above: Order Comment: Speci men Type: BLOOD SPECIMENOrdering Facility: [facility] Address: [address] [place] [address] Performed By: #### 5 7021-8 ####[facility] LABORATORYCLIA [id number] [place] [address] [place] RBC (Bld) [#/Vol] 3.20 10*6/uL Low 4.20-6.00 [facility] Comment on above: Order Comment: Speci men Type: BLOOD SPECIMENOrdering Facility: [facility] Address: [address] [place] [address] Performed By: #### 5 7021-8 ####[facility] LABORATORYCLIA [id number] [address] [place] WBC (Bld) [#/Vol] 9.67 10*3/uL Normal 3.70-11.00 [facility] Comment on above: Order Comment: Speci men Type: BLOOD SPECIMENOrdering Facility: [facility] Address: [address] [place] [address] Performed By: #### 5 7021-8 ####[facility]ORATORYCLIA [id number] [address] CONSULT PROGon 07-27-2021 CONSULT PROG Normal [facility] CSF MANUAL DIFFon 07-27-2021 DIF TTL, CSF 100 cells counted Normal [facility] Comment on above: Order Comment: Speci men Type: CEREBROSPINAL FLUIDOrdering Facility: [facility] Address: [address] [place] [address] Performed By: #### L [id number], 16556-1, [id number] ####[facility]ORATORYCLIA [id number] [place] [address] [place] LYMPH%, CSF 75 % Normal 50-90 [facility] Comment on above: Order Comment: Speci men Type: CEREBROSPINAL FLUIDOrdering Facility: [facility] Address: [address] [place] [address] Performed By: #### L XO0602, 65542-5, [id number] ####[facility]ORATORYCLIA [id number] [place] [address] [place] MONO%, CSF 22 % Normal 10-50 [facility] Comment on above: Order Comment: Speci men Type: CEREBROSPINAL FLUIDOrdering Facility: [facility] Address: [address] [place] [address] Performed By: #### L [id number], 60471-2, [id number] ####[facility]ORATORYCLIA [id number] [place] [address] [place] NEUT%, CSF 2 % Normal 0-3 [facility] Comment on above: Order Comment: Speci men Type: CEREBROSPINAL FLUIDOrdering Facility: [facility] Address: [address] [place] [address] Performed By: #### L VF0736, 87333-1, [id number] ####[facility]ORATORYCLIA [id number] [address] [place] OTHER CL%, CSF 1 % Normal [facility] Comment on above: Order Comment: Speci men Type: CEREBROSPINAL FLUIDOrdering Facility: [facility] Address: [address] [place] [address] Result Comment: Path ologist review of microscopy results to follow Performed By: #### L JM3919, 31557-9, [id number] ####[facility]ORATORYCLIA [id number] [address] CSF PATHOLOGIST INTERP (LAB REFLEX ORDER-NO BILL)on 07-27-2021 CSF STAFF REVIEW Negative Normal [facility] Comment on above: Order Comment: Speci men Type: CEREBROSPINAL FLUIDOrdering Facility: [facility] Address: [address] [place] [address] Performed By: #### L HO0194, 61797-7, [id number] ####[facility]ORATORYCLIA [id number] [address] Pathologist name Reviewed by Amador Stevens MD [facility] Comment on above: Order Comment: Speci men Type: CEREBROSPINAL FLUIDOrdering Facility: [facility] Address: [address] [place] [address] Performed By: #### L VP4390, 93537-7, [id number] ####[facility]ORATORYCLIA [id number] [address] Cell count panel (CSF)on Clarity (CSF) Clear Normal Clear [facility] Comment on above: Order Comment: Speci men Type: CEREBROSPINAL FLUIDOrdering Facility: [facility] Address: [address] [place] [address] Performed By: #### L WD8196, 75741-7, [id number] ####[facility]ORATORYCLIA [id number] [address] [place] Clarity (Unsp spec) Not Indicated Normal Clear [facility] Comment on above: Order Comment: Speci men Type: CEREBROSPINAL FLUIDOrdering Facility: [facility] Address: [address] [place] [address] Performed By: #### L MV2427, 15393-9, [id number] ####[facility]ORATORYCLIA [id number] [address] [place] Color (CSF) Colorless Normal Colorless [facility] Comment on above: Order Comment: Speci men Type: CEREBROSPINAL FLUIDOrdering Facility: [facility] Address: [address] Performed By: #### L [id number], 06099-4, [id number] ####[facility]ORATORYCLIA [id number] [address] Color (Spun CSF) Not Indicated Normal Colorless [facility] Comment on above: Order Comment: Speci men Type: CEREBROSPINAL FLUIDOrdering Facility: [facility] Address: [address] [place] [address] Performed By: #### L [id number], 23291-4, [id number] ####[facility]ORATORYCLIA [id number] [address] CSF TUBE [employer]BER [employer] Normal [facility] Comment on above: Order Comment: Speci men Type: CEREBROSPINAL FLUIDOrdering Facility: [facility] Address: [address] [place] [address] Performed By: #### L [id number], 41383-3, [id number] ####[facility]ORATORYCLIA [id number] [address] RBC Manual cnt (CSF) [#/Vol] 39 cells/uL High 0-5 [facility] Comment on above: Order Comment: Speci men Type: CEREBROSPINAL FLUIDOrdering Facility: [facility] Address: [address] [place] [address] Performed By: #### L GQ4417, 75151-4, [id number] ####[facility]ORATORYCLIA [id number] [address] WBC Manual cnt (CSF) [#/Vol] 14 cells/uL High 0-5 [facility] Comment on above: Order Comment: Speci men Type: CEREBROSPINAL FLUIDOrdering Facility: [facility] Address: [address] [place], [place] [address] Performed By: #### L [id number], 50701-0, [id number] ####[facility]ORATORYCLIA [id number] [address] [place] Glucose CSF-mCncon 2 Glucose (CSF) [Mass/Vol] 64 mg/dL Normal 40-70 [facility] Comment on above: Order Comment: Johni men Type: CEREBROSPINAL FLUIDOrdering Facility: [facility] Address: [address] [place] [address] Result Comment: Lumb ar CSF glucose values of healthy patients are approximately 60% of the plasma values and must always be compared with a concurrently measured plasma value for adequate clinical interpretation.References: 1. Glucose HK (GLUC3) [package insert V 12.0 Burkinan]. [employer], [place], [place]. September 2015. 2. Michelle Moore, Loki HGarfield (2015). Chapter 7: Glucose and Lactate. Marianela Alcocer al.(eds.), Cerebrospinal Fluid in Clinical Neurology. Stewart: [place]. Performed By: #### 2 342-4, 2880-3 ####[facility]ORATORYCLIA [id number] [place] [address] [place] NUTRITIONon 07-27-2021 NUTRITION Normal [facility] Prot CSF-[facility] 07-27-2021 Protein (CSF) [Mass/Vol] 58 mg/dL High 15-45 [facility] Comment on above: Order Comment: Shira feldman Type: CEREBROSPINAL FLUIDOrdering Facility: [facility] Address: [address] [place] [address] Performed By: #### 2 342-4, 2880-3 ####[facility]ORATORYCLIA [id number] [place] [address] [place] aPTT PPPon 07-27-2021 aPTT Coag (PPP) [Time] 68.4 s High 23.0-32.4 [facility] Comment on above: Order Comment: Shira feldman Type: BLOOD SPECIMENOrdering Facility: [facility] Address: [address] [place] [address] Performed By: #### 1 4979-9 ####[facility]ORATORYCLIA [id number] [address] [place] aPTT Coag (PPP) [Time] 51.3 s High 23.0-32.4 [facility] Comment on above: Order Comment: Speci men Type: BLOOD SPECIMENOrdering Facility: [facility] Address: [address] [place] [address] Performed By: #### 1 4979-9 ####[facility]ORATORYCLIA [id number] [address] STATES OF [facility] ALLIED HEALTHon 07-26-2021 ALLIED HEALTH HNO ID: [id number] Author: Stephanie Maldonado, monument erector Service: Radiology Author Type: Instructional Technology Coordinator Type: Allied Health Filed: 07/26/2021 4:10 PM Note Text: Spoke with nurse. Pt getting new EVD today. Try tomorrow. Normal [facility] Bacteria CSF Culton 07-27-19 Bacteria identified Cx Nom (CSF) Abnormal [facility] Comment on above: Performed By: #### 6 06-4 ####[facility]ORATORYCLIA [id number] [address] STATES OF [facility] Basic metabolic 2000 panelon 07-26-2021 Anion gap [Moles/Vol] 6 mmol/L Low 9-18 [facility] Comment on above: Order Comment: Speci men Type: BLOOD SPECIMENOrdering Facility: [facility] Address: [address] [place] [address] Performed By: #### 2 4321-2 ####[facility]ORATORYCLIA [id number] [place] [address] [place] Calcium [Mass/Vol] 9.2 mg/dL Normal 8.5-10.2 [facility] Comment on above: Order Comment: Speci men Type: BLOOD SPECIMENOrdering Facility: [facility] Address: [address] [place] [address] Performed By: #### 2 4321-2 ####[facility]ORATORYCLIA [id number] [address] STATES OF [facility] Chloride [Moles/Vol] 99 mmol/L Normal 97-105 [facility] Comment on above: Order Comment: Speci men Type: BLOOD SPECIMENOrdering Facility: [facility] Address: [address] [place] [address] Performed By: #### 2 4321-2 ####[facility]ORATORYCLIA [id number] [place] [address] [place] [facility] CO2 [Moles/Vol] 32 mmol/L High 22-30 [facility] Comment on above: Order Comment: Speci men Type: BLOOD SPECIMENOrdering Facility: [facility] Address: [address] [place] [address] Performed By: #### 2 4321-2 ####[facility] LABORATORYCLIA [id number] [address] STATES OF [facility] Creatinine [Mass/Vol] 0.74 mg/dL Normal 0.73-1.22 [facility] Comment on above: Order Comment: Speci men Type: BLOOD SPECIMENOrdering Facility: [facility] Address: [address] [place] [address] Performed By: #### 2 4321-2 ####[facility] LABORATORYCLIA [id number] [address] ESTIMATED GLOMERULAR FILTRATION RATE 98 mL/min/1.73m??? Normal >=60 [facility] Comment on above: Order Comment: Speci men Type: BLOOD SPECIMENOrdering Facility: [facility] Address: [address] [place] [address] Result Comment: Luzmaria mated Glomerular Filtration Rate [...] actual GFR. Performed By: #### 2 4321-2 ####[facility] LABORATORYCLIA [id number] [address] STATES OF [place] Glucose [Mass/Vol] 126 mg/dL High 74-99 [facility] Comment on above: Order Comment: Speci men Type: BLOOD SPECIMENOrdering Facility: [facility] Address: [address] [address] Result Comment: The [place] Diabetes Association (ADA) provides guidance for cutoff [...] Standards of Medical Care in Diabetes 2016, [place] [employer]. Diabetes Care. 2016.39(Suppl 1). Performed By: #### 2 4321-2 ####[facility] LABORATORYCLIA [id number] [place] [address] [place] Potassium [Moles/Vol] 4.2 mmol/L Normal 3.7-5.1 [facility] Comment on above: Order Comment: Speci men Type: BLOOD SPECIMENOrdering Facility: [facility] Address: [address] [address] Performed By: #### 2 4321-2 ####[facility] LABORATORYCLIA [id number] [place] [address] [place] Sodium [Moles/Vol] 137 mmol/L Normal 136-144 [facility] Comment on above: Order Comment: Speci men Type: BLOOD SPECIMENOrdering Facility: [facility] Address: [address] [address] Performed By: #### 2 4321-2 ####[facility] LABORATORYCLIA [id number] [place] [address] [place] Urea nitrogen [Mass/Vol] 36 mg/dL High 9-24 [facility] Comment on above: Order Comment: Speci men Type: BLOOD SPECIMENOrdering Facility: [facility] Address: [address] [address] Performed By: #### 2 4321-2 ####[facility]ORATORYCLIA [id number] [place] [address] [place] CBC W Auto Differential pane l (Bld)on 07-26-2021 Basophils (Bld) [#/Vol] 0.04 10*3/uL Normal <0.11 [facility] Comment on above: Order Comment: Speci men Type: BLOOD SPECIMENOrdering Facility: [facility] Address: [address] [place] [address] Performed By: #### 5 7021-8 ####[facility] LABORATORYCLIA [id number] [address] STATES [facility] Basophils/100 WBC (Bld) 0.4 % Normal [facility] Comment on above: Order Comment: Speci men Type: BLOOD SPECIMENOrdering Facility: [facility] Address: [address] [place] [address] Performed By: #### 5 7021-8 ####[facility] LABORATORYCLIA [id number] [address] STATES [facility] Differential cell count method Nom (Bld) Auto Normal [facility] Comment on above: Order Comment: Speci men Type: BLOOD SPECIMENOrdering Facility: [facility] Address: [address] [place] [address] Performed By: #### 5 7021-8 ####[facility] LABORATORYCLIA [id number] [place] [address] [place] Eosinophils (Bld) [#/Vol] 0.63 10*3/uL High <0.46 [facility] Comment on above: Order Comment: Speci men Type: BLOOD SPECIMENOrdering Facility: [facility] Address: [address] [place] [address] Performed By: #### 5 7021-8 ####[facility]ORATORYCLIA [id number] [address] [place] Eosinophils/100 WBC (Bld) 5.8 % Normal [facility] Comment on above: Order Comment: Speci men Type: BLOOD SPECIMENOrdering Facility: [facility] Address: [address] [place] [address] Performed By: #### 5 7021-8 ####[facility] LABORATORYCLIA [id number] [address] Erythrocyte distribution width (RBC) [Ratio] 16.8 % High 11.5-15.0 [facility] Comment on above: Order Comment: Speci men Type: BLOOD SPECIMENOrdering Facility: [facility] Address: [address] [place] [address] Performed By: #### 5 7021-8 ####[facility] LABORATORYCLIA [id number] [address] Hematocrit (Bld) [Volume fraction] 31.2 % Low 39.0-51.0 [facility] Comment on above: Order Comment: Speci men Type: BLOOD SPECIMENOrdering Facility: [facility] Address: [address] [place] [address] Performed By: #### 5 7021-8 ####[facility] LABORATORYCLIA [id number] [address] Hemoglobin (Bld) [Mass/Vol] 9.1 g/dL Low 13.0-17.0 [facility] Comment on above: Order Comment: Speci men Type: BLOOD SPECIMENOrdering Facility: [facility] Address: [address] [place] [address] Performed By: #### 5 7021-8 ####[facility] LABORATORYCLIA [id number] [address] IMMATURE GRAN % 0.6 % Normal [facility] Comment on above: Order Comment: Speci men Type: BLOOD SPECIMENOrdering Facility: [facility] Address: [address] [place] [address] Performed By: #### 5 7021-8 ####[facility] LABORATORYCLIA [id number] [address] IMMATURE GRAN ABS 0.07 k/uL Normal <0.10 [facility] Comment on above: Order Comment: Speci men Type: BLOOD SPECIMENOrdering Facility: [facility] Address: [address] [place] [address] Performed By: #### 5 7021-8 ####[facility] LABORATORYCLIA [id number] [address] OF [facility] Lymphocytes (Bld) [#/Vol] 2.16 10*3/uL Normal 1.00-4.00 [facility] Comment on above: Order Comment: Speci men Type: BLOOD SPECIMENOrdering Facility: [facility] Address: [address] [place] [address] Performed By: #### 5 7021-8 ####[facility] LABORATORYCLIA [id number] [address] Lymphocytes/100 WBC (Bld) 20.0 % Normal [facility] Comment on above: Order Comment: Speci men Type: BLOOD SPECIMENOrdering Facility: [facility] Address: [address] [place] [address] Performed By: #### 5 7021-8 ####[facility] LABORATORYCLIA [id number] [address] STATES OF [facility] MCH (RBC) [Entitic mass] 27.7 pg Normal 26.0-34.0 [facility] Comment on above: Order Comment: Speci men Type: BLOOD SPECIMENOrdering Facility: [facility] Address: [address] [place] [address] Performed By: #### 5 7021-8 ####[facility] LABORATORYCLIA [id number] [address] STATES [facility] MCHC (RBC) [Mass/Vol] 29.2 g/dL Low 30.5-36.0 [facility] Comment on above: Order Comment: Speci men Type: BLOOD SPECIMENOrdering Facility: [facility] Address: [address] [place] [address] Performed By: #### 5 7021-8 ####[facility] LABORATORYCLIA [id number] [place] [address] [place] MCV (RBC) [Entitic vol] 95.1 fL Normal 80.0-100.0 [facility] Comment on above: Order Comment: Speci men Type: BLOOD SPECIMENOrdering Facility: [facility] Address: [address] [place] [address] Performed By: #### 5 7021-8 ####[facility] LABORATORYCLIA [id number] [place] [address] [place] Monocytes (Bld) [#/Vol] 0.63 10*3/uL Normal <0.87 [facility] Comment on above: Order Comment: Speci men Type: BLOOD SPECIMENOrdering Facility: [facility] Address: [address] [place] [address] Performed By: #### 5 7021-8 ####[facility] LABORATORYCLIA [id number] [address] STATES [place] Monocytes/100 WBC (Bld) 5.8 % Normal [facility] Comment on above: Order Comment: Speci men Type: BLOOD SPECIMENOrdering Facility: [facility] Address: [address] [place] [address] Performed By: #### 5 7021-8 ####[facility] LABORATORYCLIA [id number] [place] [address] [place] Neutrophils (Bld) [#/Vol] 7.25 10*3/uL Normal 1.45-7.50 [facility] Comment on above: Order Comment: Speci men Type: BLOOD SPECIMENOrdering Facility: [facility] Address: [address] [place] [address] Performed By: #### 5 7021-8 ####[facility] LABORATORYCLIA [id number] [address] [place] Neutrophils/100 WBC (Bld) 67.4 % Normal [facility] Comment on above: Order Comment: Speci men Type: BLOOD SPECIMENOrdering Facility: [facility] Address: [address] [address] Performed By: #### 5 7021-8 ####[facility]ORATORYCLIA [id number] [address] Nucleated RBC (Bld) [#/Vol] 10*3/uL Normal <0.01 [facility] Comment on above: Order Comment: Speci men Type: BLOOD SPECIMENOrdering Facility: [facility] Address: [address] [place] [address] Performed By: #### 5 7021-8 ####[facility]ORATORYCLIA [id number] [address] Nucleated RBC/100 WBC (Bld) [Ratio] 0.0 /100 WBC Normal [facility] Comment on above: Order Comment: Speci men Type: BLOOD SPECIMENOrdering Facility: [facility] Address: [address] [place] [address] Performed By: #### 5 7021-8 ####[facility]ORATORYCLIA [id number] [address] OF [place] Platelet mean volume (Bld) [Entitic vol] 11.2 fL Normal 9.0-12.7 [facility] Comment on above: Order Comment: Speci men Type: BLOOD SPECIMENOrdering Facility: [facility] Address: [address] [place] [address] Performed By: #### 5 7021-8 ####[facility]ORATORYCLIA [id number] [address] Platelets (Bld) [#/Vol] 245 10*3/uL Normal 150-400 [facility] Comment on above: Order Comment: Speci men Type: BLOOD SPECIMENOrdering Facility: [facility] Address: [address] [place] [address] Performed By: #### 5 7021-8 ####[facility] LABORATORYCLIA [id number] [address] OF [place] RBC (Bld) [#/Vol] 3.28 10*6/uL Low 4.20-6.00 [facility] Comment on above: Order Comment: Speci men Type: BLOOD SPECIMENOrdering Facility: [facility] Address: [address] [place] [address] Performed By: #### 5 7021-8 ####[facility] LABORATORYCLIA [id number] [place] [address] [place] WBC (Bld) [#/Vol] 10.78 10*3/uL Normal 3.70-11.00 [facility] Comment on above: Order Comment: Speci men Type: BLOOD SPECIMENOrdering Facility: [facility] Address: [address] [place] [address] Performed By: #### 5 7021-8 ####[facility] LABORATORYCLIA [id number] [address] OF [facility] CSF MANUAL DIFFon 07-26-2021 DIF TTL, CSF 100 cells counted Normal [facility] Comment on above: Order Comment: Speci men Type: CEREBROSPINAL FLUIDOrdering Facility: [facility] Address: [address] [place] [address] Performed By: #### 3 4563-7, [id number], [id number] ####[facility] LABORATORYCLIA [id number] [place] [address] [place] LYMPH%, CSF 26 % Low 50-90 [facility] Comment on above: Order Comment: Speci men Type: CEREBROSPINAL FLUIDOrdering Facility: [facility] Address: [address] [place] [address] Performed By: #### 3 4563-7, [id number], [id number] ####[facility]ORATORYCLIA [id number] [address] STATES [place] MACRO%, CSF 10 % High <1 [facility] Comment on above: Order Comment: Speci men Type: CEREBROSPINAL FLUIDOrdering Facility: [facility] Address: [address] [place] [address] Performed By: #### 3 4563-7, [id number], [id number] ####[facility] LABORATORYCLIA [id number] [place] [address] [place] MONO%, CSF 20 % Normal 10-50 [facility] Comment on above: Order Comment: Speci men Type: CEREBROSPINAL FLUIDOrdering Facility: [facility] Address: [address] [place] [address] Performed By: #### 3 4563-7, [id number], [id number] ####[facility]ORATORYCLIA [id number] [place] [address] [place] NEUT%, CSF 40 % High 0-3 [facility] Comment on above: Order Comment: Speci men Type: CEREBROSPINAL FLUIDOrdering Facility: [facility] Address: [address] [place] [address] Performed By: #### 3 4563-7, [id number], [id number] ####[facility] LABORATORYCLIA [id number] [address] OTHER CL%, CSF 2 % Normal [facility] Comment on above: Order Comment: Speci men Type: CEREBROSPINAL FLUIDOrdering Facility: [facility] Address: [address] [place] [address] Result Comment: Path review to follow. Performed By: #### 3 4563-7, [id number], [id number] ####[facility]ORATORYCLIA [id number] [address] [place] REAC LYMPH %, CSF 2 % Normal [facility] Comment on above: Order Comment: Speci men Type: CEREBROSPINAL FLUIDOrdering Facility: [facility] Address: [address] [place] [address] Performed By: #### 3 4563-7, [id number], [id number] ####[facility]ORATORYCLIA [id number] [address] CSF PATHOLOGIST INTERP (LAB REFLEX ORDER-NO BILL)on 07-26-2021 CSF STAFF REVIEW Negative for maligna nt cells. Rare bacteria present, cocci in pairs and chains. Correlation with CSF cultures is recommended. Normal [facility] Comment on above: Order Comment: Speci men Type: CEREBROSPINAL FLUIDOrdering Facility: [facility] Address: [facility] [address] Performed By: #### 3 4563-7, [id number], [id number] ####[facility]ORATORYCLIA [id number] [address] Pathologist name Reviewed by Amador Stevens MD [facility] Comment on above: Order Comment: Speci men Type: CEREBROSPINAL FLUIDOrdering Facility: [facility] Address: [address] [place] [address] Performed By: #### 3 4563-7, [id number], [id number] ####[facility]ORATORYCLIA [id number] [address] Cell count panel (CSF)on Clarity (CSF) Slightly Cloudy Abnormal Clear [facility] Comment on above: Order Comment: Speci men Type: CEREBROSPINAL FLUIDOrdering Facility: [facility] Address: [address] [place] [address] Performed By: #### 3 4563-7, [id number], [id number] ####[facility]ORATORYCLIA [id number] [address] Clarity (Unsp spec) Clear Normal Clear [facility] Comment on above: Order Comment: Speci men Type: CEREBROSPINAL FLUIDOrdering Facility: [facility] Address: [address] [address] Performed By: #### 3 4563-7, [id number], [id number] ####[facility]ORATORYCLIA [id number] [address] Color (CSF) Colorless Normal Colorless [facility] Comment on above: Order Comment: Speci men Type: CEREBROSPINAL FLUIDOrdering Facility: [facility] Address: [address] [address] Performed By: #### 3 4563-7, [id number], [id number] ####[facility]ORATORYCLIA [id number] [address] Color (Spun CSF) Not Indicated Normal Colorless [facility] Comment on above: Order Comment: Speci men Type: CEREBROSPINAL FLUIDOrdering Facility: [facility] Address: [address] [place] [address] Performed By: #### 3 4563-7, [id number], [id number] ####[facility]ORATORYCLIA [id number] [address] OF [facility] CSF TUBE NUMBER [employer] Normal [facility] Comment on above: Order Comment: Speci men Type: CEREBROSPINAL FLUIDOrdering Facility: [facility] Address: [address] [place] [address] Performed By: #### 3 4563-7, [id number], [id number] ####[facility]ORATORYCLIA [id number] [address] RBC Manual cnt (CSF) [#/Vol] 1 cells/uL Normal 0-5 [facility] Comment on above: Order Comment: Speci men Type: CEREBROSPINAL FLUIDOrdering Facility: [facility] Address: [address] [place] [address] Performed By: #### 3 4563-7, [id number], [id number] ####[facility]ATORYCLIA [id number] [address] WBC Manual cnt (CSF) [#/Vol] 50 cells/uL High 0-5 [facility] Comment on above: Order Comment: Speci men Type: CEREBROSPINAL FLUIDOrdering Facility: [facility] Address: [address] [place] [address] Performed By: #### 3 4563-7, [id number], [id number] ####[facility]ORATORYCLIA [id number] [address] [place] Glucose CSF-mCncon 2 Glucose (CSF) [Mass/Vol] 64 mg/dL Normal 40-70 [facility] Comment on above: Order Comment: Speci men Type: CEREBROSPINAL FLUIDOrdering Facility: [facility] Address: [address] [place] [address] Result Comment: Lumb ar CSF glucose values of healthy patients are approximately 60% of the plasma values and must always be compared with a concurrently measured plasma value for adequate clinical interpretation.References: 1. Glucose HK (GLUC3) [package insert V 12.0 Bur[place]an]. [employer], [place], [place]. September 2015. 2. Michelle Moore, Loki HGarfield (2015). Chapter 7: Glucose and Lactate. FGarfield Alcocer al.(eds.), Cerebrospinal Fluid in Clinical Neurology. Stewart: [place]. Performed By: #### 2 880-3, 2342-4 ####[facility]ORATORYCLIA [id number] [address] STATES OF [facility] Magnesium SerPl-ncon 07-26 Magnesium [Mass/Vol] 2.3 mg/dL Normal 1.7-2.3 [facility] Comment on above: Order Comment: Speci men Type: BLOOD SPECIMENOrdering Facility: [facility] Address: [address] [place] [address] Performed By: #### 1 9123-9, 2777-1, 3016-3 ####[facility] HE[facility] SERVICESCLIA [id number] [address] [place] NURSING PROGon 07-26-2021 NURSING PROG Normal [facility] Phosphate SerPl-ncon 07-26 Phosphate [Mass/Vol] 2.6 mg/dL Low 2.7-4.8 [facility] Comment on above: Order Comment: Johni francia Type: BLOOD SPECIMENOrdering Facility: [facility] Address: [address] [place], [place] [address] Performed By: #### 1 9123-9, 2777-1, 3016-3 ####[facility]ORATORYCLIA [id number] [address] STATES [place] Prot CSF-mCncon 07-26-2021 Protein (CSF) [Mass/Vol] 64 mg/dL High 15-45 [facility] Comment on above: Order Comment: Speci men Type: CEREBROSPINAL FLUIDOrdering Facility: [facility] Address: [address] [place] [address] Performed By: #### 2 880-3, 2342-4 ####[facility] LABORATORYCLIA [id number] [address] OF [facility] THERAPY NTon 07-26-2021 THERAPY NT Normal [facility] TSH SerPl-aCncon 07-26-2021 TSH Qn 1.470 m[IU]/L Normal 0.270-4.200 [facility] Comment on above: Order Comment: Speci men Type: BLOOD SPECIMENOrdering Facility: [facility] Address: [address] [place] [address] Performed By: #### 1 9123-9, 2777-1, 3016-3 ####[facility]ORATORYCLIA [id number] [address] STATES [place] VITAMIN B12 BLOODon 07-27-19 Cobalamin (Vitamin B12) [Mass/Vol] 934 pg/mL Normal 232-1,245 [facility] Comment on above: Order Comment: Speci men Type: BLOOD SPECIMENOrdering Facility: [facility] Address: [address] [place] [address] Performed By: #### B 12 ####[facility]ORATORYCLIA [id number] [place] [address] [place] aPTT PPPon 07-26-2021 aPTT Coag (PPP) [Time] 53.6 s High 23.0-32.4 [facility] Comment on above: Order Comment: Speci men Type: BLOOD SPECIMENOrdering Facility: [facility] Address: [address] [place] [address] Performed By: #### 1 4979-9 ####[facility] LABORATORYCLIA [id number] [address] aPTT Coag (PPP) [Time] 44.9 s High 23.0-32.4 [facility] Comment on above: Order Comment: Speci men Type: BLOOD SPECIMENOrdering Facility: [facility] Address: [address] [place] [address] Performed By: #### 1 4979-9 ####[facility] LABORATORYCLIA [id number] [address] STATES [place] ALLIED HEALTHon 07-25-2021 ALLIED HEALTH HNO ID: [id number] Author: Shannon Bess RT(R) Service: Radiology Author Type: Technologist Type: Allied Health Filed: 07/25/2021 1:37 PM Note Text: Called floor for MRI screening form [id number] Normal [facility] Bacteria Bld Culton 07-26-19 Bacteria identified Cx Nom (Bld) CULTURE, BLOOD: No growth 5 days Normal [facility] Comment on above: Performed By: #### 6 00-7 ####[facility]ORATORYCLIA [id number] [address] STATES OF [facility] Bacteria identified Cx Nom (Bld) CULTURE, BLOOD: No growth 5 days Normal [facility] Comment on above: Performed By: #### 6 00-7 ####[facility] LABORATORYCLIA [id number] [address] STATES [place] CASE MANAGEMon 07-25-2021 CASE MANAGEM Normal [facility] CBC W Auto Differential pane l (Bld)on 07-25-2021 Basophils (Bld) [#/Vol] 0.06 10*3/uL Normal <0.11 [facility] Comment on above: Order Comment: Speci men Type: BLOOD SPECIMENOrdering Facility: [facility] Address: [address] [place], [place] [id number] Performed By: #### 5 7021-8 ####[facility] LABORATORYCLIA [id number] [address] STATES [place] Basophils/100 WBC (Bld) 0.6 % Normal [facility] Comment on above: Order Comment: Speci men Type: BLOOD SPECIMENOrdering Facility: [facility] Address: [address] [place] [address] Performed By: #### 5 7021-8 ####[facility] LABORATORYCLIA [id number] [address] Differential cell count method Nom (Bld) Auto Normal [facility] Comment on above: Order Comment: Speci men Type: BLOOD SPECIMENOrdering Facility: [facility] Address: [address] [place] [address] Performed By: #### 5 7021-8 ####[facility] LABORATORYCLIA [id number] [address] Eosinophils (Bld) [#/Vol] 0.26 10*3/uL Normal <0.46 [facility] Comment on above: Order Comment: Speci men Type: BLOOD SPECIMENOrdering Facility: [facility] Address: [address] [place] [address] Performed By: #### 5 7021-8 ####[facility]ORATORYCLIA [id number] [address] Eosinophils/100 WBC (Bld) 2.5 % Normal [facility] Comment on above: Order Comment: Speci men Type: BLOOD SPECIMENOrdering Facility: [facility] Address: [address] [place] [address] Performed By: #### 5 7021-8 ####[facility] LABORATORYCLIA [id number] [address] Erythrocyte distribution width (RBC) [Ratio] 16.9 % High 11.5-15.0 [facility] Comment on above: Order Comment: Speci men Type: BLOOD SPECIMENOrdering Facility: [facility] Address: [address] [place] [address] Performed By: #### 5 7021-8 ####[facility] LABORATORYCLIA [id number] [address] Hematocrit (Bld) [Volume fraction] 29.6 % Low 39.0-51.0 [facility] Comment on above: Order Comment: Speci men Type: BLOOD SPECIMENOrdering Facility: [facility] Address: [address] [place] [address] Performed By: #### 5 7021-8 ####[facility] LABORATORYCLIA [id number] [address] [place] Hemoglobin (Bld) [Mass/Vol] 8.8 g/dL Low 13.0-17.0 [facility] Comment on above: Order Comment: Speci men Type: BLOOD SPECIMENOrdering Facility: [facility] Address: [address] [place] [address] Performed By: #### 5 7021-8 ####[facility] LABORATORYCLIA [id number] [address] OF [facility] IMMATURE GRAN % 0.6 % Normal [facility] Comment on above: Order Comment: Speci men Type: BLOOD SPECIMENOrdering Facility: [facility] Address: [address] [place] [address] Performed By: #### 5 7021-8 ####[facility] LABORATORYCLIA [id number] [address] IMMATURE GRAN ABS 0.06 k/uL Normal <0.10 [facility] Comment on above: Order Comment: Speci men Type: BLOOD SPECIMENOrdering Facility: [facility] Address: [address] [place] [address] Performed By: #### 5 7021-8 ####[facility] LABORATORYCLIA [id number] [address] [place] Lymphocytes (Bld) [#/Vol] 2.15 10*3/uL Normal 1.00-4.00 [facility] Comment on above: Order Comment: Speci men Type: BLOOD SPECIMENOrdering Facility: [facility] Address: [address] [place] [address] Performed By: #### 5 7021-8 ####[facility]ORATORYCLIA [id number] [address] Lymphocytes/100 WBC (Bld) 20.7 % Normal [facility] Comment on above: Order Comment: Speci men Type: BLOOD SPECIMENOrdering Facility: [facility] Address: [address] [place] [address] Performed By: #### 5 7021-8 ####[facility] LABORATORYCLIA [id number] [address] MCH (RBC) [Entitic mass] 28.2 pg Normal 26.0-34.0 [facility] Comment on above: Order Comment: Speci men Type: BLOOD SPECIMENOrdering Facility: [facility] Address: [address] [place] [address] Performed By: #### 5 7021-8 ####[facility] LABORATORYCLIA [id number] [address] STATES OF [facility] MCHC (RBC) [Mass/Vol] 29.7 g/dL Low 30.5-36.0 [facility] Comment on above: Order Comment: Speci men Type: BLOOD SPECIMENOrdering Facility: [facility] Address: [address] [place] [address] Performed By: #### 5 7021-8 ####[facility] LABORATORYCLIA [id number] [address] MCV (RBC) [Entitic vol] 94.9 fL Normal 80.0-100.0 [facility] Comment on above: Order Comment: Speci men Type: BLOOD SPECIMENOrdering Facility: [facility] Address: [address] [place] [address] Performed By: #### 5 7021-8 ####[facility] LABORATORYCLIA [id number] [address] Monocytes (Bld) [#/Vol] 0.62 10*3/uL Normal <0.87 [facility] Comment on above: Order Comment: Speci men Type: BLOOD SPECIMENOrdering Facility: [facility] Address: [address] [address] Performed By: #### 5 7021-8 ####[facility]ORATORYCLIA [id number] [address] [place] Monocytes/100 WBC (Bld) 6.0 % Normal [facility] Comment on above: Order Comment: Speci men Type: BLOOD SPECIMENOrdering Facility: [facility] Address: [address] [place] [address] Performed By: #### 5 7021-8 ####[facility] LABORATORYCLIA [id number] [place] [address] [place] Neutrophils (Bld) [#/Vol] 7.25 10*3/uL Normal 1.45-7.50 [facility] Comment on above: Order Comment: Speci men Type: BLOOD SPECIMENOrdering Facility: [facility] Address: [address] [place] [address] Performed By: #### 5 7021-8 ####[facility] LABORATORYCLIA [id number] [address] STATES OF [facility] Neutrophils/100 WBC (Bld) 69.6 % Normal [facility] Comment on above: Order Comment: Speci men Type: BLOOD SPECIMENOrdering Facility: [facility] Address: [address] [place] [address] Performed By: #### 5 7021-8 ####[facility]ORATORYCLIA [id number] [address] [place] Nucleated RBC (Bld) [#/Vol] 10*3/uL Normal <0.01 [facility] Comment on above: Order Comment: Speci men Type: BLOOD SPECIMENOrdering Facility: [facility] Address: [address] [place] [address] Performed By: #### 5 7021-8 ####[facility]ORATORYCLIA [id number] [address] [place] Nucleated RBC/100 WBC (Bld) [Ratio] 0.0 /100 WBC Normal [facility] Comment on above: Order Comment: Speci men Type: BLOOD SPECIMENOrdering Facility: [facility] Address: [address] [place] [address] Performed By: #### 5 7021-8 ####[facility] LABORATORYCLIA [id number] [address] [place] Platelet mean volume (Bld) [Entitic vol] 11.3 fL Normal 9.0-12.7 [facility] Comment on above: Order Comment: Speci men Type: BLOOD SPECIMENOrdering Facility: [facility] Address: [address] [place] [address] Performed By: #### 5 7021-8 ####[facility] LABORATORYCLIA [id number] [address] [place] Platelets (Bld) [#/Vol] 243 10*3/uL Normal 150-400 [facility] Comment on above: Order Comment: Speci men Type: BLOOD SPECIMENOrdering Facility: [facility] Address: [address] [place] [address] Performed By: #### 5 7021-8 ####[facility] LABORATORYCLIA [id number] [address] [place] RBC (Bld) [#/Vol] 3.12 10*6/uL Low 4.20-6.00 [facility] Comment on above: Order Comment: Speci men Type: BLOOD SPECIMENOrdering Facility: [facility] Address: [address] [place], [place] [address] Performed By: #### 5 7021-8 ####[facility] LABORATORYCLIA [id number] [address] [place] WBC (Bld) [#/Vol] 10.40 10*3/uL Normal 3.70-11.00 [facility] Comment on above: Order Comment: Speci men Type: BLOOD SPECIMENOrdering Facility: [facility] Address: [address] [place] [address] Performed By: #### 5 7021-8 ####[facility] LABORATORYCLIA [id number] [place] [address] [place] CONSULT PROGon 07-25-2021 CONSULT PROG Normal [facility] MYCOPLASMA PNEUM IGMon 07-25 M. PNEUMO IGM, QUAL Negative Normal Negative [facility] Comment on above: Order Comment: Speci men Type: BLOOD SPECIMENOrdering Facility: [facility] Address: [address] [place] [address] Result Comment: Myco plasma pneumoniae IgM antibody test is used as an aid in diagnosis of recent infection with M. pneumoniae. It may occasionally remain elevated for extended periods after an acute infection. Cannot exclude recent infection if the specimen collected 7-10 days after onset of signs and symptoms. Clinical correlation is required. Performed By: #### M YCOPM ####[facility] LABCLIA [id number] [facility] [id number] [place] [address] [place] NURSING PROGon 07-25-2021 NURSING PROG Normal [facility] THERAPY NTon 07-25-2021 THERAPY NT Normal [facility] THERAPY NT Normal [facility] aPTT PPPon 07-25-2021 aPTT Coag (PPP) [Time] 62.6 s High 23.0-32.4 [facility] Comment on above: Order Comment: Speci men Type: BLOOD SPECIMENOrdering Facility: [facility] Address: [address] [place] [address] Performed By: #### 1 4979-9 ####[facility] LABORATORYCLIA [id number] [address] [place] Bacteria Ur Culton 2 Bacteria identified Cx Nom (U) CULTURE, URINE: No growth (<100 CFU/ml) Normal [facility] Comment on above: Performed By: #### 6 30-4 ####[facility] LABORATORYCLIA [id number] [place] [address] [place] Basic metabolic 2000 panelon 07-24-2021 Anion gap [Moles/Vol] 13 mmol/L Normal 9-18 [facility] Comment on above: Order Comment: Speci men Type: BLOOD SPECIMENOrdering Facility: [facility] Address: [address] [place] [address] Performed By: #### 1 9123-9, PROCAL, 2776-05, 35864-2 ####[facility] LABORATORYCLIA [id number] [place] [address] [place] Calcium [Mass/Vol] 9.5 mg/dL Normal 8.5-10.2 [facility] Comment on above: Order Comment: Speci men Type: BLOOD SPECIMENOrdering Facility: [facility] Address: [address] [place] [address] Performed By: #### 1 9123-9, PROCAL, 2776-05, 76737-8 ####[facility] LABORATORYCLIA [id number] [place] [address] [place] Chloride [Moles/Vol] 102 mmol/L Normal 97-105 [facility] Comment on above: Order Comment: Speci men Type: BLOOD SPECIMENOrdering Facility: [facility] Address: [address] [place] [address] Performed By: #### 1 9123-9, PROCAL, 2776-05, 72137-9 ####[facility] LABORATORYCLIA [id number] [place] [address] [place] CO2 [Moles/Vol] 28 mmol/L Normal 22-30 [facility] Comment on above: Order Comment: Speci men Type: BLOOD SPECIMENOrdering Facility: [facility] Address: [address] [place] [address] Performed By: #### 1 9123-9, PROCAL, 2776-05, 53811-1 ####[facility] LABORATORYCLIA [id number] [place] [address] [place] Creatinine [Mass/Vol] 0.86 mg/dL Normal 0.73-1.22 [facility] Comment on above: Order Comment: Speci men Type: BLOOD SPECIMENOrdering Facility: [facility] Address: [address] [place], [place] [address] Performed By: #### 1 9123-9, KATIE, 2777-1, 91027-5 ####[facility] [id number] [address] OF [facility] ESTIMATED GLOMERULAR FILTRATION RATE 94 mL/min/1.73m??? Normal >=60 [facility] Comment on above: Order Comment: Shira feldman Type: BLOOD SPECIMENOrdering Facility: [facility] Address: [address] [address] Result Comment: Luzmaria mated Glomerular Filtration Rate [...] Performed By: #### 1 9123-9, KATIE, 2777-1, 25836-0 ####[facility] LABORATORYIA [id number] [place] [address] [place] Glucose [Mass/Vol] 148 mg/dL High 74-99 [facility] Comment on above: Order Comment: Shira feldman Type: BLOOD SPECIMENOrdering Facility: [facility] Address: [address] [address] Result Comment: The [place] [employer] (ADA) provides guidance for cutoff [...] Standards of Medical Care in Diabetes 2016, [place] [employer]. Diabetes Care. 2016.39(Suppl 1). Performed By: #### 1 9123-9, PROCAL, 2777-1, 83687-9 ####[facility] LABORATORYCLIA [id number] [place] [address] [place] Potassium [Moles/Vol] 4.0 mmol/L Normal 3.7-5.1 [facility] Comment on above: Order Comment: Speci men Type: BLOOD SPECIMENOrdering Facility: [facility] Address: [address] [place] [address] Performed By: #### 1 9123-9, ELVAIN, 2776-05, 57592-5 ####[facility] HE[facility] SERVICESCLIA [id number] [place] [address] [place] Sodium [Moles/Vol] 143 mmol/L Normal 136-144 [facility] Comment on above: Order Comment: Speci men Type: BLOOD SPECIMENOrdering Facility: [facility] Address: [address] [place] [address] Performed By: #### 1 9123-9, [facility], 2776-05, 79266-3 ####[facility] HE[facility] SERVICESCLIA [id number] [address] [place] Urea nitrogen [Mass/Vol] 38 mg/dL High 9-24 [facility] Comment on above: Order Comment: Speci men Type: BLOOD SPECIMENOrdering Facility: [facility] Address: [address] [place] [address] Performed By: #### 1 9123-9, [facility], 27711-04, 18580-5 ####[facility] LABORATORYCLIA [id number] [address] [place] CBC W Auto Differential pane l (Bld)on 07-24-2021 Basophils (Bld) [#/Vol] 0.06 10*3/uL Normal <0.11 [facility] Comment on above: Order Comment: Speci men Type: BLOOD SPECIMENOrdering Facility: [facility] Address: [address] [place] [address] Performed By: #### 5 7021-8 ####[facility] LABORATORYCLIA [id number] [address] STATES [facility] Basophils/100 WBC (Bld) 0.6 % Normal [facility] Comment on above: Order Comment: Speci men Type: BLOOD SPECIMENOrdering Facility: [facility] Address: [address] [place] [address] Performed By: #### 5 7021-8 ####[facility] LABORATORYCLIA [id number] [address] [place] Differential cell count method Nom (Bld) Auto Normal [facility] Comment on above: Order Comment: Speci men Type: BLOOD SPECIMENOrdering Facility: [facility] Address: [address] [place] [address] Performed By: #### 5 7021-8 ####[facility] LABORATORYCLIA [id number] [address] [place] Eosinophils (Bld) [#/Vol] 0.03 10*3/uL Normal <0.46 [facility] Comment on above: Order Comment: Speci men Type: BLOOD SPECIMENOrdering Facility: [facility] Address: [address] [place] [address] Performed By: #### 5 7021-8 ####[facility] LABORATORYCLIA [id number] [address] Eosinophils/100 WBC (Bld) 0.3 % Normal [facility] Comment on above: Order Comment: Speci men Type: BLOOD SPECIMENOrdering Facility: [facility] Address: [address] [place] [address] Performed By: #### 5 7021-8 ####[facility] LABORATORYCLIA [id number] [address] [place] Erythrocyte distribution width (RBC) [Ratio] 17.0 % High 11.5-15.0 [facility] Comment on above: Order Comment: Speci men Type: BLOOD SPECIMENOrdering Facility: [facility] Address: [address] [place] [address] Performed By: #### 5 7021-8 ####[facility] LABORATORYCLIA [id number] [address] Hematocrit (Bld) [Volume fraction] 30.5 % Low 39.0-51.0 [facility] Comment on above: Order Comment: Speci men Type: BLOOD SPECIMENOrdering Facility: [facility] Address: [address] [place] [address] Performed By: #### 5 7021-8 ####[facility] LABORATORYCLIA [id number] [address] Hemoglobin (Bld) [Mass/Vol] 9.0 g/dL Low 13.0-17.0 [facility] Comment on above: Order Comment: Speci men Type: BLOOD SPECIMENOrdering Facility: [facility] Address: [address] [place] [address] Performed By: #### 5 7021-8 ####[facility] LABORATORYCLIA [id number] [address] IMMATURE GRAN % 0.5 % Normal [facility] Comment on above: Order Comment: Speci men Type: BLOOD SPECIMENOrdering Facility: [facility] Address: [address] [place] [address] Performed By: #### 5 7021-8 ####[facility] LABORATORYCLIA [id number] [address] IMMATURE GRAN ABS 0.05 k/uL Normal <0.10 [facility] Comment on above: Order Comment: Speci men Type: BLOOD SPECIMENOrdering Facility: [facility] Address: [address] [place] [address] Performed By: #### 5 7021-8 ####[facility] LABORATORYCLIA [id number] [address] Lymphocytes (Bld) [#/Vol] 1.68 10*3/uL Normal 1.00-4.00 [facility] Comment on above: Order Comment: Speci men Type: BLOOD SPECIMENOrdering Facility: [facility] Address: [address] [place] [address] Performed By: #### 5 7021-8 ####[facility] LABORATORYCLIA [id number] [address] Lymphocytes/100 WBC (Bld) 16.2 % Normal [facility] Comment on above: Order Comment: Speci men Type: BLOOD SPECIMENOrdering Facility: [facility] Address: [address] [place] [address] Performed By: #### 5 7021-8 ####[facility] LABORATORYCLIA [id number] [address] MCH (RBC) [Entitic mass] 27.4 pg Normal 26.0-34.0 [facility] Comment on above: Order Comment: Speci men Type: BLOOD SPECIMENOrdering Facility: [facility] Address: [address] [place] [address] Performed By: #### 5 7021-8 ####[facility] LABORATORYCLIA [id number] [address] STATES [facility] MCHC (RBC) [Mass/Vol] 29.5 g/dL Low 30.5-36.0 [facility] Comment on above: Order Comment: Speci men Type: BLOOD SPECIMENOrdering Facility: [facility] Address: [address] [place] [address] Performed By: #### 5 7021-8 ####[facility] LABORATORYCLIA [id number] [address] MCV (RBC) [Entitic vol] 93.0 fL Normal 80.0-100.0 [facility] Comment on above: Order Comment: Speci men Type: BLOOD SPECIMENOrdering Facility: [facility] Address: [address] [place] [address] Performed By: #### 5 7021-8 ####[facility] LABORATORYCLIA [id number] [address] Monocytes (Bld) [#/Vol] 0.63 10*3/uL Normal <0.87 [facility] Comment on above: Order Comment: Speci men Type: BLOOD SPECIMENOrdering Facility: [facility] Address: [address] [place] [address] Performed By: #### 5 7021-8 ####[facility] LABORATORYCLIA [id number] [address] [place] Monocytes/100 WBC (Bld) 6.1 % Normal [facility] Comment on above: Order Comment: Speci men Type: BLOOD SPECIMENOrdering Facility: [facility] Address: [address] [place] [address] Performed By: #### 5 7021-8 ####[facility] LABORATORYCLIA [id number] [address] [place] Neutrophils (Bld) [#/Vol] 7.91 10*3/uL High 1.45-7.50 [facility] Comment on above: Order Comment: Speci men Type: BLOOD SPECIMENOrdering Facility: [facility] Address: [address] [place] [address] Performed By: #### 5 7021-8 ####[facility] LABORATORYCLIA [id number] [address] STATES OF [facility] Neutrophils/100 WBC (Bld) 76.3 % Normal [facility] Comment on above: Order Comment: Speci men Type: BLOOD SPECIMENOrdering Facility: [facility] Address: [address] [place] [address] Performed By: #### 5 7021-8 ####[facility] LABORATORYCLIA [id number] [address] [place] Nucleated RBC (Bld) [#/Vol] 10*3/uL Normal <0.01 [facility] Comment on above: Order Comment: Speci men Type: BLOOD SPECIMENOrdering Facility: [facility] Address: [address] [place] [address] Performed By: #### 5 7021-8 ####[facility]ORATORYCLIA [id number] [address] [place] Nucleated RBC/100 WBC (Bld) [Ratio] 0.0 /100 WBC Normal [facility] Comment on above: Order Comment: Speci men Type: BLOOD SPECIMENOrdering Facility: [facility] Address: [address] [place] [address] Performed By: #### 5 7021-8 ####[facility] LABORATORYCLIA [id number] [place] [address] [place] Platelet mean volume (Bld) [Entitic vol] 11.1 fL Normal 9.0-12.7 [facility] Comment on above: Order Comment: Speci men Type: BLOOD SPECIMENOrdering Facility: [facility] Address: [address] [place] [address] Performed By: #### 5 7021-8 ####[facility] LABORATORYCLIA [id number] [address] [place] Platelets (Bld) [#/Vol] 285 10*3/uL Normal 150-400 [facility] Comment on above: Order Comment: Speci men Type: BLOOD SPECIMENOrdering Facility: [facility] Address: [address] [place] [address] Performed By: #### 5 7021-8 ####[facility] LABORATORYCLIA [id number] [place] [address] [place] RBC (Bld) [#/Vol] 3.28 10*6/uL Low 4.20-6.00 [facility] Comment on above: Order Comment: Speci men Type: BLOOD SPECIMENOrdering Facility: [facility] Address: [address] [place] [address] Performed By: #### 5 7021-8 ####[facility] LABORATORYCLIA [id number] [address] [place] WBC (Bld) [#/Vol] 10.36 10*3/uL Normal 3.70-11.00 [facility] Comment on above: Order Comment: Speci men Type: BLOOD SPECIMENOrdering Facility: [facility] Address: [address] [place] [address] Performed By: #### 5 7021-8 ####[facility] LABORATORYCLIA [id number] [address] Legionella Ag Ur Qlon 2021 Legionella sp Ag Ql (U) Negative Normal Negative [facility] Comment on above: Order Comment: Speci men Type: URINE SPECIMENOrdering Facility: [facility] Address: [address] [place] [address] Performed By: #### 3 2781-7 ####[facility] LABORATORYCLIA [id number] [address] Magnesium SerPl-mCncon 07-24 Magnesium [Mass/Vol] 2.3 mg/dL Normal 1.7-2.3 [facility] Comment on above: Order Comment: Speci men Type: BLOOD SPECIMENOrdering Facility: [facility] Address: [address] [place] [address] Performed By: #### 1 9123-9, PROCAL, 2777-1, 19401-9 ####[facility] SERVICESCLIA [id number] [address] NURSING PROGon 07-24-2021 NURSING PROG Normal [facility] PROCALCITONIN (LAB)on 2021 Procalcitonin [Mass/Vol] 0.15 ng/mL High <0.09 [facility] Comment on above: Order Comment: Speci men Type: BLOOD SPECIMENOrdering Facility: [facility] Address: [address] [place] [address] Result Comment: For a guided interpretation of test results, please visit the Change in Procalcitonin Calculator, [email or web address]. Performed By: #### 1 9123-9, PROCAL, 2777-1, 13104-9 ####[facility] LABORATORYCLIA [id number] [address] [facility] Phosphate SerPl-mCncon 07-24 Phosphate [Mass/Vol] 3.9 mg/dL Normal 2.7-4.8 [facility] Comment on above: Order Comment: Speci men Type: BLOOD SPECIMENOrdering Facility: [facility] Address: [address] [place] [address] Performed By: #### 1 9123-9, PROCAL, 2777-1, 52710-1 ####[facility] LABORATORYCLIA [id number] [address] [place] STREPTOCOCCUS PNEUMONIAE AGo n 07-24-2021 STREPTOCOCCUS PNEUMONIAE AG Normal [facility] Comment on above: Performed By: #### S PNAG ####[facility]ORATORYCLIA [id number] [place] [address] [place] aPTT PPPon 07-24-2021 aPTT Coag (PPP) [Time] 60.8 s High 23.0-32.4 [facility] Comment on above: Order Comment: Speci men Type: BLOOD SPECIMENOrdering Facility: [facility] Address: [address] [place] [address] Performed By: #### 1 4979-9 ####[facility] LABORATORYCLIA [id number] [address] [place] aPTT Coag (PPP) [Time] 38.2 s High 23.0-32.4 [facility] Comment on above: Order Comment: Speci men Type: BLOOD SPECIMENOrdering Facility: [facility] Address: [address] [place] [address] Performed By: #### 1 4979-9 ####[facility]ORATORYCLIA [id number] [address] [place] aPTT Coag (PPP) [Time] 35.9 s High 23.0-32.4 [facility] Comment on above: Order Comment: Speci men Type: BLOOD SPECIMENOrdering Facility: [facility] Address: [address] [place] [address] Performed By: #### 1 4979-9 ####[facility]ORATORYCLIA [id number] [place] [address] [place] aPTT Coag (PPP) [Time] 28.8 s Normal 23.0-32.4 [facility] Comment on above: Order Comment: Speci men Type: BLOOD SPECIMENOrdering Facility: [facility] Address: [address] [place] [address] Performed By: #### 1 4979-9 ####[facility]ORATORYCLIA [id number] [address] [place] ALLIED HEALTHon 07-23-2021 ALLIED HEALTH Normal [facility] ALLIED HEALTH Normal [facility] ALLIED HEALTH Normal [facility] ARTERIAL BLOOD GASESon 07-23 Base excess Calc (Bld) [Moles/Vol] 4 mmol/L High 0-2 [facility] Comment on above: Order Comment: Speci men Type: ARTERIAL BLOOD SPECIMENOrdering Facility: [facility] Address: [address] [place] [address] Performed By: #### A LLBG ####[facility]ORATORYCLIA [id number] [address] Body temperature 100.58 [degF] Normal [facility] Comment on above: Order Comment: Speci men Type: ARTERIAL BLOOD SPECIMENOrdering Facility: [facility] Address: [address] [place] [address] Performed By: #### A LLBG ####[facility]ORATORYCLIA [id number] [address] [place] CALCIUM IONIZED, PH CORRECTED 1.26 mmol/L Normal 1.08-1.30 [facility] Comment on above: Order Comment: Speci men Type: ARTERIAL BLOOD SPECIMENOrdering Facility: [facility] Address: [address] [place] [address] Performed By: #### A LLBG ####[facility]ORATORYCLIA [id number] [address] [place] Calcium.ionized (BldV) [Mass/Vol] 1.25 mmol/L Normal 1.08-1.30 [facility] Comment on above: Order Comment: Speci men Type: ARTERIAL BLOOD SPECIMENOrdering Facility: [facility] Address: [address] [place] [address] Performed By: #### A LLBG ####[facility]ORATORYCLIA [id number] [address] OF [facility] Carboxyhemoglobin (BldA) [Mass fraction] 1.2 % Normal 0.0-2.0 [facility] Comment on above: Order Comment: Speci men Type: ARTERIAL BLOOD SPECIMENOrdering Facility: [facility] Address: [address] [place] [address] Result Comment: Carb oxyhemoglobin Reference Range for Smokers: 2.0-8.0% Performed By: #### A LLBG ####[facility]ORATORYCLIA [id number] [address] [place] CO2 (Bld) [Partial pressure] 46 mm Hg Normal 36-46 [facility] Comment on above: Order Comment: Speci men Type: ARTERIAL BLOOD SPECIMENOrdering Facility: [facility] Address: [address] [place] [address] Performed By: #### A LLBG ####[facility]ORATORYCLIA [id number] [address] [place] CO2 [Moles/Vol] 27 mmol/L Normal 22-28 [facility] Comment on above: Order Comment: Speci men Type: ARTERIAL BLOOD SPECIMENOrdering Facility: [facility] Address: [address] [place] [address] Performed By: #### A LLBG ####[facility]ORATORYCLIA [id number] [address] [place] CO2 adjusted to patient's actual temperature (Bld) [Partial pressure] 48 mmHg High 36-46 [facility] Comment on above: Order Comment: Speci men Type: ARTERIAL BLOOD SPECIMENOrdering Facility: [facility] Address: [address] [place] [address] Performed By: #### A LLBG ####[facility]ORATORYCLIA [id number] [address] [place] Glucose [Mass/Vol] 134 mg/dL High 60-105 [facility] Comment on above: Order Comment: Speci men Type: ARTERIAL BLOOD SPECIMENOrdering Facility: [facility] Address: [address] [place] [address] Performed By: #### A LLBG ####[facility]ORATORYCLIA [id number] [address] [place] HCO3 (Bld) [Moles/Vol] 29 mmol/L High 22-26 [facility] Comment on above: Order Comment: Speci men Type: ARTERIAL BLOOD SPECIMENOrdering Facility: [facility] Address: [address] [place] [address] Performed By: #### A LLBG ####[facility]ORATORYCLIA [id number] [address] [place] Hematocrit (Bld) [Volume fraction] 31.4 % Low 39.0-51.0 [facility] Comment on above: Order Comment: Speci men Type: ARTERIAL BLOOD SPECIMENOrdering Facility: [facility] Address: [address] [place] [address] Performed By: #### A LLBG ####[facility]ORATORYCLIA [id number] [address] [place] Hemoglobin (Bld) [Mass/Vol] 10.2 g/dL Low 13.0-17.0 [facility] Comment on above: Order Comment: Speci men Type: ARTERIAL BLOOD SPECIMENOrdering Facility: [facility] Address: [address] [place] [address] Performed By: #### A LLBG ####[facility]ORATORYCLIA [id number] [address] [place] Methemoglobin (Bld) [Mass fraction] % Normal 0.0-1.5 [facility] Comment on above: Order Comment: Speci men Type: ARTERIAL BLOOD SPECIMENOrdering Facility: [facility] Address: [address] [place] [address] Performed By: #### A LLBG ####[facility]ATORYCLIA [id number] [address] [place] O2 THERAPY Ventilator Normal [facility] Comment on above: Order Comment: Speci men Type: ARTERIAL BLOOD SPECIMENOrdering Facility: [facility] Address: [address] [place] [address] Performed By: #### A LLBG ####[facility]ATORYCLIA [id number] [address] Oxygen (Bld) [Partial pressure] 113 mm Hg High 85-95 [facility] Comment on above: Order Comment: Speci men Type: ARTERIAL BLOOD SPECIMENOrdering Facility: [facility] Address: [address] [place] [address] Performed By: #### A LLBG ####[facility]ORYCLIA [id number] [address] Oxygen adjusted to patient's actual temperature (Bld) [Partial pressure] 119 mmHg High 85-95 [facility] Comment on above: Order Comment: Speci men Type: ARTERIAL BLOOD SPECIMENOrdering Facility: [facility] Address: [address] [place] [address] Performed By: #### A LLBG ####[facility]ATORYCLIA [id number] [address] [place] OXYGEN SATURATION, ARTERIAL 98 % Normal 95-98 [facility] Comment on above: Order Comment: Speci men Type: ARTERIAL BLOOD SPECIMENOrdering Facility: [facility] Address: [address] [place] [address] Performed By: #### A LLBG ####[facility]ATORYCLIA [id number] [address] [place] Oxyhemoglobin (BldA) [Mass fraction] 96 % Normal 95-98 [facility] Comment on above: Order Comment: Speci men Type: ARTERIAL BLOOD SPECIMENOrdering Facility: [facility] Address: [address] [place] [address] Performed By: #### A LLBG ####[facility]ATORYCLIA [id number] [address] pH (Bld) 7.41 [pH] Normal 7.35-7.45 [facility] Comment on above: Order Comment: Speci men Type: ARTERIAL BLOOD SPECIMENOrdering Facility: [facility] Address: [address] [place] [address] Performed By: #### A LLBG ####[facility]ATORYCLIA [id number] [address] pH adjusted to patient's actual temperature (Bld) 7.40 Normal 7.35-7.45 [facility] Comment on above: Order Comment: Speci men Type: ARTERIAL BLOOD SPECIMENOrdering Facility: [facility] Address: [address] [place] [address] Performed By: #### A LLBG ####[facility]ORATORYCLIA [id number] [address] Potassium [Moles/Vol] 4.3 mmol/L Normal 3.5-5.0 [facility] Comment on above: Order Comment: Speci men Type: ARTERIAL BLOOD SPECIMENOrdering Facility: [facility] Address: [address] [place] [address] Performed By: #### A LLBG ####[facility]ORATORYCLIA [id number] [address] [place] Sodium [Moles/Vol] 144 mmol/L Normal 136-144 [facility] Comment on above: Order Comment: Speci men Type: ARTERIAL BLOOD SPECIMENOrdering Facility: [facility] Address: [address] [place] [address] Performed By: #### A LLBG ####[facility]ORATORYCLIA [id number] [address] [place] Bacteria CSF Culton 07-24-19 22 Bacteria identified Cx Nom (CSF) Abnormal [facility] Comment on above: Performed By: #### 6 06-4 ####[facility]ORATORYCLIA [id number] [place] [address] [place] Basic metabolic 2000 panelon 07-23-2021 Anion gap [Moles/Vol] 12 mmol/L Normal 9-18 [facility] Comment on above: Order Comment: Speci men Type: BLOOD SPECIMENOrdering Facility: [facility] Address: [address] [place] [address] Performed By: #### 2 4321-2 ####[facility]ORATORYCLIA [id number] [place] [address] [place] Calcium [Mass/Vol] 9.7 mg/dL Normal 8.5-10.2 [facility] Comment on above: Order Comment: Speci men Type: BLOOD SPECIMENOrdering Facility: [facility] Address: [address] [place] [address] Performed By: #### 2 4321-2 ####[facility]ORATORYCLIA [id number] [place] [address] [place] Chloride [Moles/Vol] 105 mmol/L Normal 97-105 [facility] Comment on above: Order Comment: Speci men Type: BLOOD SPECIMENOrdering Facility: [facility] Address: [address] [place] [address] Performed By: #### 2 4321-2 ####[facility]ORATORYCLIA [id number] [place] [address] [place] CO2 [Moles/Vol] 28 mmol/L Normal 22-30 [facility] Comment on above: Order Comment: Speci men Type: BLOOD SPECIMENOrdering Facility: [facility] Address: [address] [place] [address] Performed By: #### 2 4321-2 ####[facility]ORATORYCLIA [id number] [place] [address] [place] Creatinine [Mass/Vol] 0.78 mg/dL Normal 0.73-1.22 [facility] Comment on above: Order Comment: Shira fedlman Type: BLOOD SPECIMENOrdering Facility: [facility] Address: [address] [address] Performed By: #### 2 4321-2 ####[facility]ORATORYCLIA [id number] [address] OF [facility] ESTIMATED GLOMERULAR FILTRATION RATE 97 mL/min/1.73m??? Normal >=60 [facility] Comment on above: Order Comment: Shira feldman Type: BLOOD SPECIMENOrdering Facility: [facility] Address: [address] [address] Result Comment: Luzmaria mated Glomerular Filtration Rate [...] actual GFR. Performed By: #### 2 4321-2 ####[facility]ORATORYCLIA [id number] [place] [address] [place] Glucose [Mass/Vol] 127 mg/dL High 74-99 [facility] Comment on above: Order Comment: Shira feldman Type: BLOOD SPECIMENOrdering Facility: [facility] Address: [address] [address] Result Comment: The [place] [employer] (ADA) provides guidance for cutoff [...] Standards of Medical Care in Diabetes 2016, [place] [employer]. Diabetes Care. 2016.39(Suppl 1). Performed By: #### 2 4321-2 ####[facility]ORATORYCLIA [id number] [address] [place] Potassium [Moles/Vol] 4.3 mmol/L Normal 3.7-5.1 [facility] Comment on above: Order Comment: Speci men Type: BLOOD SPECIMENOrdering Facility: [facility] Address: [address] [place] [address] Performed By: #### 2 4321-2 ####[facility]ORATORYCLIA [id number] [address] [place] Sodium [Moles/Vol] 145 mmol/L High 136-144 [facility] Comment on above: Order Comment: Speci men Type: BLOOD SPECIMENOrdering Facility: [facility] Address: [address] [place] [address] Performed By: #### 2 4321-2 ####[facility]ORATORYCLIA [id number] [address] STATES [facility] Urea nitrogen [Mass/Vol] 37 mg/dL High 9-24 [facility] Comment on above: Order Comment: Speci men Type: BLOOD SPECIMENOrdering Facility: [facility] Address: [address] [place] [address] Performed By: #### 2 4321-2 ####[facility]ORATORYCLIA [id number] [address] [place] C diff Tox gens Stl Ql MEGAN+p robeon 07-23-2021 C. difficile toxin genes MEGAN+probe Ql (Stl) Negative Normal Negative for C. difficile toxin by PCR [facility] Comment on above: Order Comment: Speci men Type: STOOL SPECIMENOrdering Facility: [facility] Address: [address] [place] [address] Performed By: #### 5 4067-4 ####[facility]ATORYCLIA [id number] [address] [place] CBC W Auto Differential pane l (Bld)on 07-23-2021 Basophils (Bld) [#/Vol] 0.07 10*3/uL Normal <0.11 [facility] Comment on above: Order Comment: Speci men Type: BLOOD SPECIMENOrdering Facility: [facility] Address: [address] [place] [address] Performed By: #### 5 7021-8 ####[facility]ATORYCLIA [id number] [address] [place] Basophils/100 WBC (Bld) 0.5 % Normal [facility] Comment on above: Order Comment: Speci men Type: BLOOD SPECIMENOrdering Facility: [facility] Address: [address] [place] [address] Performed By: #### 5 7021-8 ####[facility]ATORYCLIA [id number] [address] [place] Differential cell count method Nom (Bld) Auto Normal [facility] Comment on above: Order Comment: Speci men Type: BLOOD SPECIMENOrdering Facility: [facility] Address: [address] [place] [address] Performed By: #### 5 7021-8 ####[facility]ATORYCLIA [id number] [address] [place] Eosinophils (Bld) [#/Vol] 10*3/uL Normal <0.46 [facility] Comment on above: Order Comment: Speci men Type: BLOOD SPECIMENOrdering Facility: [facility] Address: [address] [place] [address] Performed By: #### 5 7021-8 ####[facility]ATORYCLIA [id number] [address] [place] Eosinophils/100 WBC (Bld) 0.2 % Normal [facility] Comment on above: Order Comment: Speci men Type: BLOOD SPECIMENOrdering Facility: [facility] Address: [address] [place] [address] Performed By: #### 5 7021-8 ####[facility]ATORYCLIA [id number] [address] Erythrocyte distribution width (RBC) [Ratio] 16.7 % High 11.5-15.0 [facility] Comment on above: Order Comment: Speci men Type: BLOOD SPECIMENOrdering Facility: [facility] Address: [address] [place] [address] Performed By: #### 5 7021-8 ####[facility]ATORYCLIA [id number] [address] Hematocrit (Bld) [Volume fraction] 32.8 % Low 39.0-51.0 [facility] Comment on above: Order Comment: Speci men Type: BLOOD SPECIMENOrdering Facility: [facility] Address: [address] [place] [address] Performed By: #### 5 7021-8 ####[facility]ATORYCLIA [id number] [address] Hemoglobin (Bld) [Mass/Vol] 9.7 g/dL Low 13.0-17.0 [facility] Comment on above: Order Comment: Speci men Type: BLOOD SPECIMENOrdering Facility: [facility] Address: [address] [place] [address] Performed By: #### 5 7021-8 ####[facility]ATORYCLIA [id number] [address] IMMATURE GRAN % 0.7 % Normal [facility] Comment on above: Order Comment: Speci men Type: BLOOD SPECIMENOrdering Facility: [facility] Address: [address] [place] [address] Performed By: #### 5 7021-8 ####[facility]ATORYCLIA [id number] [address] IMMATURE GRAN ABS 0.09 k/uL Normal <0.10 [facility] Comment on above: Order Comment: Speci men Type: BLOOD SPECIMENOrdering Facility: [facility] Address: [address] [place] [address] Performed By: #### 5 7021-8 ####[facility]ORATORYCLIA [id number] [address] STATES OF [facility] Lymphocytes (Bld) [#/Vol] 1.94 10*3/uL Normal 1.00-4.00 [facility] Comment on above: Order Comment: Speci men Type: BLOOD SPECIMENOrdering Facility: [facility] Address: [address] [place] [address] Performed By: #### 5 7021-8 ####[facility]ATORYCLIA [id number] [address] Lymphocytes/100 WBC (Bld) 14.6 % Normal [facility] Comment on above: Order Comment: Speci men Type: BLOOD SPECIMENOrdering Facility: [facility] Address: [address] [place] [address] Performed By: #### 5 7021-8 ####[facility]ORATORYCLIA [id number] [address] STATES OF [facility] MCH (RBC) [Entitic mass] 27.2 pg Normal 26.0-34.0 [facility] Comment on above: Order Comment: Speci men Type: BLOOD SPECIMENOrdering Facility: [facility] Address: [address] [place] [address] Performed By: #### 5 7021-8 ####[facility]ORATORYCLIA [id number] [address] [place] MCHC (RBC) [Mass/Vol] 29.6 g/dL Low 30.5-36.0 [facility] Comment on above: Order Comment: Speci men Type: BLOOD SPECIMENOrdering Facility: [facility] Address: [address] [place] [address] Performed By: #### 5 7021-8 ####[facility]ORATORYCLIA [id number] [address] [place] MCV (RBC) [Entitic vol] 92.1 fL Normal 80.0-100.0 [facility] Comment on above: Order Comment: Speci men Type: BLOOD SPECIMENOrdering Facility: [facility] Address: [address] [place] [address] Performed By: #### 5 7021-8 ####[facility] LABORATORYCLIA [id number] [place] [address] [place] Monocytes (Bld) [#/Vol] 0.74 10*3/uL Normal <0.87 [facility] Comment on above: Order Comment: Speci men Type: BLOOD SPECIMENOrdering Facility: [facility] Address: [address] [place] [address] Performed By: #### 5 7021-8 ####[facility]ORATORYCLIA [id number] [address] [place] Monocytes/100 WBC (Bld) 5.6 % Normal [facility] Comment on above: Order Comment: Speci men Type: BLOOD SPECIMENOrdering Facility: [facility] Address: [address] [place] [address] Performed By: #### 5 7021-8 ####[facility]ORATORYCLIA [id number] [place] [address] [place] Neutrophils (Bld) [#/Vol] 10.43 10*3/uL High 1.45-7.50 [facility] Comment on above: Order Comment: Speci men Type: BLOOD SPECIMENOrdering Facility: [facility] Address: [address] [place] [address] Performed By: #### 5 7021-8 ####[facility]ORATORYCLIA [id number] [place] [address] [place] Neutrophils/100 WBC (Bld) 78.4 % Normal [facility] Comment on above: Order Comment: Speci men Type: BLOOD SPECIMENOrdering Facility: [facility] Address: [address] [place] [address] Performed By: #### 5 7021-8 ####[facility]ORATORYCLIA [id number] [address] [place] Nucleated RBC (Bld) [#/Vol] 10*3/uL Normal <0.01 [facility] Comment on above: Order Comment: Speci men Type: BLOOD SPECIMENOrdering Facility: [facility] Address: [address] [place] [address] Performed By: #### 5 7021-8 ####[facility]ORATORYCLIA [id number] [address] [place] Nucleated RBC/100 WBC (Bld) [Ratio] 0.0 /100 WBC Normal [facility] Comment on above: Order Comment: Speci men Type: BLOOD SPECIMENOrdering Facility: [facility] Address: [address] [place] [address] Performed By: #### 5 7021-8 ####[facility]ORATORYCLIA [id number] [address] [place] Platelet mean volume (Bld) [Entitic vol] 11.0 fL Normal 9.0-12.7 [facility] Comment on above: Order Comment: Speci men Type: BLOOD SPECIMENOrdering Facility: [facility] Address: [address] [place] [address] Performed By: #### 5 7021-8 ####[facility]ORATORYCLIA [id number] [address] [place] Platelets (Bld) [#/Vol] 381 10*3/uL Normal 150-400 [facility] Comment on above: Order Comment: Speci men Type: BLOOD SPECIMENOrdering Facility: [facility] Address: [address] [place] [address] Performed By: #### 5 7021-8 ####[facility]ORATORYCLIA [id number] [address] [place] RBC (Bld) [#/Vol] 3.56 10*6/uL Low 4.20-6.00 [facility] Comment on above: Order Comment: Speci men Type: BLOOD SPECIMENOrdering Facility: [facility] Address: [address] [place] [address] Performed By: #### 5 7021-8 ####[facility]ORATORYCLIA [id number] [address] [place] WBC (Bld) [#/Vol] 13.29 10*3/uL High 3.70-11.00 [facility] Comment on above: Order Comment: Speci men Type: BLOOD SPECIMENOrdering Facility: [facility] Address: [address] [place] [address] Performed By: #### 5 7021-8 ####[facility]ORATORYCLIA [id number] [address] OF [facility] CONSULT PROGon 07-23-2021 CONSULT PROG Normal [facility] CONSULT PROG Normal [facility] CSF MANUAL DIFFon 07-23-2021 DIF TTL, CSF 100 cells counted Normal [facility] Comment on above: Order Comment: Speci men Type: CEREBROSPINAL FLUIDOrdering Facility: [facility] Address: [address] [place] [address] Performed By: #### L [id number], [id number], 79233-1 ####[facility] LABORATORYCLIA [id number] [address] [place] LYMPH%, CSF 2 % Low 50-90 [facility] Comment on above: Order Comment: Speci men Type: CEREBROSPINAL FLUIDOrdering Facility: [facility] Address: [address] [place] [address] Performed By: #### L [id number], [id number], 18698-1 ####[facility]ORATORYCLIA [id number] [address] [place] MONO%, CSF 9 % Low 10-50 [facility] Comment on above: Order Comment: Speci men Type: CEREBROSPINAL FLUIDOrdering Facility: [facility] Address: [address] [place] [address] Performed By: #### L [id number], [id number], 25367-1 ####[facility]ORATORYCLIA [id number] [address] [place] NEUT%, CSF 89 % High 0-3 [facility] Comment on above: Order Comment: Speci men Type: CEREBROSPINAL FLUIDOrdering Facility: [facility] Address: [address] [place] [address] Performed By: #### L [id number], [id number], 62036-2 ####[facility]ATORYCLIA [id number] [address] CSF PATHOLOGIST INTERP (LAB REFLEX ORDER-NO BILL)on 07-23-2021 CSF STAFF REVIEW Negative for maligna nt cells. Numerous bacterial organisms present, cocci in pairs and chains. Recommend correlation with CSF culture results. Normal [facility] Comment on above: Order Comment: Speci men Type: CEREBROSPINAL FLUIDOrdering Facility: [facility] Address: [address] [place] [address] Performed By: #### L [id number], [id number], 94493-9 ####[facility]ORATORYCLIA [id number] [address] Pathologist name Reviewed by Amador Stevens MD Normal [facility] Comment on above: Order Comment: Speci men Type: CEREBROSPINAL FLUIDOrdering Facility: [facility] Address: [address] [place] [address] Performed By: #### L [id number], SYE6019, 58081-5 ####[facility]ORATORYCLIA [id number] [address] [place] CT BRAIN WO IVCONon 07-24-[address] BRAIN WO IVCON Normal [facility] Cell count panel (CSF)on Clarity (CSF) Clear Normal Clear [facility] Comment on above: Order Comment: Speci men Type: CEREBROSPINAL FLUIDOrdering Facility: [facility] Address: [address] [place] [address] Performed By: #### L [id number], [id number], 66282-9 ####[facility]ORATORYCLIA [id number] [address] Clarity (Unsp spec) Not Indicated Normal Clear [facility] Comment on above: Order Comment: Speci men Type: CEREBROSPINAL FLUIDOrdering Facility: [facility] Address: [address] [place] [address] Performed By: #### L [id number], [id number], 67219-3 ####[facility]ATORYCLIA [id number] [address] Color (CSF) Colorless Normal Colorless [facility] Comment on above: Order Comment: Speci men Type: CEREBROSPINAL FLUIDOrdering Facility: [facility] Address: [address] [place] [address] Performed By: #### L [id number], OXC3632, 92382-6 ####[facility]ATORYCLIA [id number] [address] Color (Spun CSF) Not Indicated Normal Colorless [facility] Comment on above: Order Comment: Speci men Type: CEREBROSPINAL FLUIDOrdering Facility: [facility] Address: [address] [place] [address] Performed By: #### L [id number], EGQ7447, 81740-0 ####[facility]ATORYCLIA [id number] [address] CSF [employer] Normal [facility] Comment on above: Order Comment: Speci men Type: CEREBROSPINAL FLUIDOrdering Facility: [facility] Address: [address] [place] [address] Performed By: #### L [id number], [id number], 04345-6 ####[facility]ATORYCLIA [id number] [address] RBC Manual cnt (CSF) [#/Vol] 7 cells/uL High 0-5 [facility] Comment on above: Order Comment: Speci men Type: CEREBROSPINAL FLUIDOrdering Facility: [facility] Address: [address] [place] [address] Performed By: #### L [id number], [id number], 96828-9 ####[facility] LABORATORYCLIA [id number] [place] [id number] [place] WBC Manual cnt (CSF) [#/Vol] 193 cells/uL High 0-5 [facility] Comment on above: Order Comment: Speci men Type: CEREBROSPINAL FLUIDOrdering Facility: [facility] Address: [address] [place] [address] Performed By: #### L [id number], [id number], 80379-1 ####[facility] LABORATORYCLIA [id number] [place] [address] [facility] Glucose CSF-[facility] 2 Glucose (CSF) [Mass/Vol] 81 mg/dL High 40-70 [facility] Comment on above: Order Comment: Speci men Type: CEREBROSPINAL FLUIDOrdering Facility: [facility] Address: [address] [place] [address] Result Comment: Lumb ar CSF glucose values of healthy patients are approximately 60% of the plasma values and must always be compared with a concurrently measured plasma value for adequate clinical interpretation.References: 1. Glucose HK (GLUC3) [package insert V 12.0 Bur[place]an]. [employer], [place], [place]. September 2015. 2. Michelle Moore, Loki H. (2015). Chapter 7: Glucose and Lactate. Marianela Alcocer al.(eds.), Cerebrospinal Fluid in Clinical Neurology. Stewart: [employer]. Performed By: #### 2 342-4, 2880-3 ####[facility] LABORATORYCLIA [id number] [place] [id number] [place] NURSING PROGon 07-23-2021 NURSING PROG Normal [facility] NURSING PROG Normal [facility] Prot CSF-ncon 07-23-2021 Protein (CSF) [Mass/Vol] 68 mg/dL High 15-45 [facility] Comment on above: Order Comment: Speci men Type: CEREBROSPINAL FLUIDOrdering Facility: [facility] Address: [address] [place] [address] Performed By: #### 2 342-4, 2880-3 ####[facility]ORATORYCLIA [id number] [address] Urinalysis complete panel (U )on 07-23-2021 Bilirubin Ql (U) Negative Normal Negative [facility] Comment on above: Order Comment: Speci men Type: URINE SPECIMENOrdering Facility: [facility] Address: [address] [place] [address] Performed By: #### 2 4356-8 ####[facility]ORATORYCLIA [id number] [address] Clarity (Unsp spec) Clear Normal Clear [facility] Comment on above: Order Comment: Speci men Type: URINE SPECIMENOrdering Facility: [facility] Address: [address] [place] [address] Performed By: #### 2 4356-8 ####[facility]ORATORYCLIA [id number] [address] Color (U) Light Yellow Normal yellow [facility] Comment on above: Order Comment: Speci men Type: URINE SPECIMENOrdering Facility: [facility] Address: [address] [place] [address] Performed By: #### 2 4356-8 ####[facility]ORATORYCLIA [id number] [address] Glucose Test strip (U) [Mass/Vol] Negative Normal Negative [facility] Comment on above: Order Comment: Speci men Type: URINE SPECIMENOrdering Facility: [facility] Address: [address] [place] [address] Performed By: #### 2 4356-8 ####[facility]ORATORYCLIA [id number] [address] Hemoglobin Ql (U) Negative Normal Negative [facility] Comment on above: Order Comment: Speci men Type: URINE SPECIMENOrdering Facility: [facility] Address: [address] [place] [address] Performed By: #### 2 4356-8 ####[facility]ORYCLIA [id number] [address] Ketones Ql (U) Negative Normal Negative [facility] Comment on above: Order Comment: Speci men Type: URINE SPECIMENOrdering Facility: [facility] Address: [address] [place] [address] Performed By: #### 2 4356-8 ####[facility]ATORYCLIA [id number] [address] Leukocyte esterase Test strip Ql (U) Negative Normal Negative [facility] Comment on above: Order Comment: Speci men Type: URINE SPECIMENOrdering Facility: [facility] Address: [address] [place] [address] Performed By: #### 2 4356-8 ####[facility]ORATORYCLIA [id number] [address] STATES [facility] Nitrite Ql (U) Negative Normal Negative [facility] Comment on above: Order Comment: Speci men Type: URINE SPECIMENOrdering Facility: [facility] Address: [address] [place] [address] Performed By: #### 2 4356-8 ####[facility]ATORYCLIA [id number] [address] [place] pH (U) 6.0 [pH] Normal 5.0-8.0 [facility] Comment on above: Order Comment: Speci men Type: URINE SPECIMENOrdering Facility: [facility] Address: [address] [place] [address] Performed By: #### 2 4356-8 ####[facility]ORATORYCLIA [id number] [address] Protein (U) [Mass/Vol] 1+ Abnormal Negative [facility] Comment on above: Order Comment: Speci men Type: URINE SPECIMENOrdering Facility: [facility] Address: [address] [place] [address] Performed By: #### 2 4356-8 ####[facility]ORATORYCLIA [id number] [address] STATES [facility] RBC LM.HPF (Urine sed) [#/Area] 0-3 /HPF Normal 0-3 /HPF [facility] Comment on above: Order Comment: Speci men Type: URINE SPECIMENOrdering Facility: [facility] Address: [address] [place] [address] Performed By: #### 2 4356-8 ####[facility]ORATORYCLIA [id number] [address] STATES [facility] Specific gravity (U) [Rel density] 1.018 Normal 1.005-1.030 [facility] Comment on above: Order Comment: Speci men Type: URINE SPECIMENOrdering Facility: [facility] Address: [address] [place] [address] Performed By: #### 2 4356-8 ####[facility]ORATORYCLIA [id number] [address] Urobilinogen Ql (U) Normal Normal Negative [facility] Comment on above: Order Comment: Speci men Type: URINE SPECIMENOrdering Facility: [facility] Address: [address] [place] [address] Performed By: #### 2 4356-8 ####[facility]ORATORYCLIA [id number] [address] WBC LM.HPF (Urine sed) [#/Area] 0-5 /HPF Normal 0-5 /HPF [facility] Comment on above: Order Comment: Speci men Type: URINE SPECIMENOrdering Facility: [facility] Address: [address] [place] [address] Performed By: #### 2 4356-8 ####[facility]ORATORYCLIA [id number] [address] [place] Vancomycin random [Mass/Vol] on 07-23-2021 Vancomycin [Mass/Vol] 12.9 ug/mL Normal 10.0-20.0 [facility] Comment on above: Order Comment: Speci men Type: BLOOD SPECIMENOrdering Facility: [facility] Address: [address] [place] [address] Result Comment: Refe rence ranges and high/low indicator flags are provided as general guidelines only. The treating physician must determine appropriate target levels/dosing based on the specific clinical situation. Performed By: #### 4 091-5 ####[facility]ORATORYCLIA [id number] [address] OF [facility] XR CHEST 1V FRONTALon 2021 XR CHEST 1V FRONTAL Normal [facility] XR CHEST 1V FRONTAL Normal [facility] aPTT PPPon 07-23-2021 aPTT Coag (PPP) [Time] 32.3 s Normal 23.0-32.4 [facility] Comment on above: Order Comment: Speci men Type: BLOOD SPECIMENOrdering Facility: [facility] Address: [address] [place] [address] Performed By: #### 1 4979-9 ####[facility]ORATORYCLIA [id number] [address] aPTT Coag (PPP) [Time] 57.9 s High 23.0-32.4 [facility] Comment on above: Order Comment: Speci men Type: BLOOD SPECIMENOrdering Facility: [facility] Address: [address] [place] [address] Performed By: #### 1 4979-9 ####[facility]ORATORYCLIA [id number] [address] aPTT Coag (PPP) [Time] 46.3 s High 23.0-32.4 [facility] Comment on above: Order Comment: Speci men Type: BLOOD SPECIMENOrdering Facility: [facility] Address: [address] [place] [address] Performed By: #### 1 4979-9 ####[facility]ORATORYCLIA [id number] [address] [place] Basic metabolic 2000 panelon 07-22-2021 Anion gap [Moles/Vol] 8 mmol/L Low 9-18 [facility] Comment on above: Order Comment: Speci men Type: BLOOD SPECIMENOrdering Facility: [facility] Address: [address] [place] [address] Performed By: #### 2 4321-2 ####[facility] LABORATORYCLIA [id number] [place] [address] [place] Calcium [Mass/Vol] 9.5 mg/dL Normal 8.5-10.2 [facility] Comment on above: Order Comment: Speci men Type: BLOOD SPECIMENOrdering Facility: [facility] Address: [address] [place] [address] Performed By: #### 2 4321-2 ####[facility]ORATORYCLIA [id number] [place] [address] [place] Chloride [Moles/Vol] 105 mmol/L Normal 97-105 [facility] Comment on above: Order Comment: Speci men Type: BLOOD SPECIMENOrdering Facility: [facility] Address: [address] [place] [address] Performed By: #### 2 4321-2 ####[facility]ORATORYCLIA [id number] [place] [address] [place] CO2 [Moles/Vol] 32 mmol/L High 22-30 [facility] Comment on above: Order Comment: Speci men Type: BLOOD SPECIMENOrdering Facility: [facility] Address: [address] [place] [address] Performed By: #### 2 4321-2 ####[facility] LABORATORYCLIA [id number] [place] [address] [place] Creatinine [Mass/Vol] 0.75 mg/dL Normal 0.73-1.22 [facility] Comment on above: Order Comment: Speci men Type: BLOOD SPECIMENOrdering Facility: [facility] Address: [address] [place] [address] Performed By: #### 2 4321-2 ####[facility]ORATORYCLIA [id number] [place] [address] [place] ESTIMATED GLOMERULAR FILTRATION RATE 98 mL/min/1.73m??? Normal >=60 [facility] Comment on above: Order Comment: Shira feldman Type: BLOOD SPECIMENOrdering Facility: [facility] Address: [address] [place] [address] Result Comment: Luzmaria mated Glomerular Filtration Rate [...] GFR. Performed By: #### 2 4321-2 ####[facility] [id number] [place] [address] [place] Glucose [Mass/Vol] 128 mg/dL High 74-99 [facility] Comment on above: Order Comment: Shira feldman Type: BLOOD SPECIMENOrdering Facility: [facility] Address: [address] [place] [address] Result Comment: The [place] [employer] (ADA) provides guidance for cutoff [...] Standards of Medical Care in Diabetes 2016, [place] [employer]. Diabetes Care. 2016.39(Suppl 1). Performed By: #### 2 4321-2 ####[facility]ORATORYCLIA [id number] [place] [address] [place] Potassium [Moles/Vol] 3.7 mmol/L Normal 3.7-5.1 [facility] Comment on above: Order Comment: Speci men Type: BLOOD SPECIMENOrdering Facility: [facility] Address: [address] [place] [address] Performed By: #### 2 4321-2 ####[facility]ORATORYCLIA [id number] [address] [place] Sodium [Moles/Vol] 145 mmol/L High 136-144 [facility] Comment on above: Order Comment: Speci men Type: BLOOD SPECIMENOrdering Facility: [facility] Address: [address] [place] [address] Performed By: #### 2 4321-2 ####[facility]ORATORYCLIA [id number] [place] [address] [place] Urea nitrogen [Mass/Vol] 39 mg/dL High 9-24 [facility] Comment on above: Order Comment: Speci men Type: BLOOD SPECIMENOrdering Facility: [facility] Address: [address] [place] [address] Performed By: #### 2 4321-2 ####[facility]ORATORYCLIA [id number] [address] [place] CASE MANAGEMon 07-22-2021 CASE MANAGEM Normal [facility] CBC W Auto Differential pane l (Bld)on 07-22-2021 Basophils (Bld) [#/Vol] 0.06 10*3/uL Normal <0.11 [facility] Comment on above: Order Comment: Speci men Type: BLOOD SPECIMENOrdering Facility: [facility] Address: [address] [place] [address] Performed By: #### 5 7021-8 ####[facility]ORATORYCLIA [id number] [address] STATES [facility] Basophils/100 WBC (Bld) 0.5 % Normal [facility] Comment on above: Order Comment: Speci men Type: BLOOD SPECIMENOrdering Facility: [facility] Address: [address] [place] [address] Performed By: #### 5 7021-8 ####[facility]ORATORYCLIA [id number] [address] Differential cell count method Nom (Bld) Auto Normal [facility] Comment on above: Order Comment: Speci men Type: BLOOD SPECIMENOrdering Facility: [facility] Address: [address] [place] [address] Performed By: #### 5 7021-8 ####[facility]ORATORYCLIA [id number] [address] [place] Eosinophils (Bld) [#/Vol] 0.44 10*3/uL Normal <0.46 [facility] Comment on above: Order Comment: Speci men Type: BLOOD SPECIMENOrdering Facility: [facility] Address: [address] [place] [address] Performed By: #### 5 7021-8 ####[facility]ORATORYCLIA [id number] [address] Eosinophils/100 WBC (Bld) 3.9 % Normal [facility] Comment on above: Order Comment: Speci men Type: BLOOD SPECIMENOrdering Facility: [facility] Address: [address] [place] [address] Performed By: #### 5 7021-8 ####[facility]ORATORYCLIA [id number] [address] [place] Erythrocyte distribution width (RBC) [Ratio] 17.0 % High 11.5-15.0 [facility] Comment on above: Order Comment: Speci men Type: BLOOD SPECIMENOrdering Facility: [facility] Address: [address] [place] [address] Performed By: #### 5 7021-8 ####[facility]ORATORYCLIA [id number] [address] Hematocrit (Bld) [Volume fraction] 32.0 % Low 39.0-51.0 [facility] Comment on above: Order Comment: Speci men Type: BLOOD SPECIMENOrdering Facility: [facility] Address: [address] [place] [address] Performed By: #### 5 7021-8 ####[facility]ORATORYCLIA [id number] [address] [place] Hemoglobin (Bld) [Mass/Vol] 9.3 g/dL Low 13.0-17.0 [facility] Comment on above: Order Comment: Speci men Type: BLOOD SPECIMENOrdering Facility: [facility] Address: [address] [place] [address] Performed By: #### 5 7021-8 ####[facility]ORATORYCLIA [id number] [address] IMMATURE GRAN % 0.5 % Normal [facility] Comment on above: Order Comment: Speci men Type: BLOOD SPECIMENOrdering Facility: [facility] Address: [address] [place] [address] Performed By: #### 5 7021-8 ####[facility]ORATORYCLIA [id number] [address] IMMATURE GRAN ABS 0.06 k/uL Normal <0.10 [facility] Comment on above: Order Comment: Speci men Type: BLOOD SPECIMENOrdering Facility: [facility] Address: [address] [place] [address] Performed By: #### 5 7021-8 ####[facility]ORATORYCLIA [id number] [address] [place] Lymphocytes (Bld) [#/Vol] 1.83 10*3/uL Normal 1.00-4.00 [facility] Comment on above: Order Comment: Speci men Type: BLOOD SPECIMENOrdering Facility: [facility] Address: [address] [place] [address] Performed By: #### 5 7021-8 ####[facility]ORATORYCLIA [id number] [address] [place] Lymphocytes/100 WBC (Bld) 16.1 % Normal [facility] Comment on above: Order Comment: Speci men Type: BLOOD SPECIMENOrdering Facility: [facility] Address: [address] [place] [address] Performed By: #### 5 7021-8 ####[facility]ORATORYCLIA [id number] [address] MCH (RBC) [Entitic mass] 27.0 pg Normal 26.0-34.0 [facility] Comment on above: Order Comment: Speci men Type: BLOOD SPECIMENOrdering Facility: [facility] Address: [address] [place] [address] Performed By: #### 5 7021-8 ####[facility]ORATORYCLIA [id number] [address] MCHC (RBC) [Mass/Vol] 29.1 g/dL Low 30.5-36.0 [facility] Comment on above: Order Comment: Speci men Type: BLOOD SPECIMENOrdering Facility: [facility] Address: [address] [place] [address] Performed By: #### 5 7021-8 ####[facility]ORATORYCLIA [id number] [address] MCV (RBC) [Entitic vol] 92.8 fL Normal 80.0-100.0 [facility] Comment on above: Order Comment: Speci men Type: BLOOD SPECIMENOrdering Facility: [facility] Address: [address] [place] [address] Performed By: #### 5 7021-8 ####[facility]ORATORYCLIA [id number] [address] Monocytes (Bld) [#/Vol] 0.87 10*3/uL High <0.87 [facility] Comment on above: Order Comment: Speci men Type: BLOOD SPECIMENOrdering Facility: [facility] Address: [address] [place] [address] Performed By: #### 5 7021-8 ####[facility]ORATORYCLIA [id number] [address] [place] Monocytes/100 WBC (Bld) 7.6 % Normal [facility] Comment on above: Order Comment: Speci men Type: BLOOD SPECIMENOrdering Facility: [facility] Address: [address] [place] [address] Performed By: #### 5 7021-8 ####[facility]ORATORYCLIA [id number] [place] [address] [place] Neutrophils (Bld) [#/Vol] 8.12 10*3/uL High 1.45-7.50 [facility] Comment on above: Order Comment: Speci men Type: BLOOD SPECIMENOrdering Facility: [facility] Address: [address] [place] [address] Performed By: #### 5 7021-8 ####[facility]ORATORYCLIA [id number] [address] [place] Neutrophils/100 WBC (Bld) 71.4 % Normal [facility] Comment on above: Order Comment: Speci men Type: BLOOD SPECIMENOrdering Facility: [facility] Address: [address] [place] [address] Performed By: #### 5 7021-8 ####[facility]ORATORYCLIA [id number] [place] [address] [place] Nucleated RBC (Bld) [#/Vol] 10*3/uL Normal <0.01 [facility] Comment on above: Order Comment: Speci men Type: BLOOD SPECIMENOrdering Facility: [facility] Address: [address] [place] [address] Performed By: #### 5 7021-8 ####[facility]ORATORYCLIA [id number] [address] [place] Nucleated RBC/100 WBC (Bld) [Ratio] 0.0 /100 WBC Normal [facility] Comment on above: Order Comment: Speci men Type: BLOOD SPECIMENOrdering Facility: [facility] Address: [address] [place] [address] Performed By: #### 5 7021-8 ####[facility] LABORATORYCLIA [id number] [address] STATES [facility] Platelet mean volume (Bld) [Entitic vol] 10.8 fL Normal 9.0-12.7 [facility] Comment on above: Order Comment: Speci men Type: BLOOD SPECIMENOrdering Facility: [facility] Address: [address] [place] [address] Performed By: #### 5 7021-8 ####[facility] LABORATORYCLIA [id number] [address] OF [place] Platelets (Bld) [#/Vol] 362 10*3/uL Normal 150-400 [facility] Comment on above: Order Comment: Speci men Type: BLOOD SPECIMENOrdering Facility: [facility] Address: [address] [place] [address] Performed By: #### 5 7021-8 ####[facility] LABORATORYCLIA [id number] [address] [place] RBC (Bld) [#/Vol] 3.45 10*6/uL Low 4.20-6.00 [facility] Comment on above: Order Comment: Speci men Type: BLOOD SPECIMENOrdering Facility: [facility] Address: [address] [place] [address] Performed By: #### 5 7021-8 ####[facility] LABORATORYCLIA [id number] [address] [place] WBC (Bld) [#/Vol] 11.38 10*3/uL High 3.70-11.00 [facility] Comment on above: Order Comment: Speci men Type: BLOOD SPECIMENOrdering Facility: [facility] Address: [address] [place], [place] [address] Performed By: #### 5 7021-8 ####[facility] LABORATORYCLIA [id number] [address] [place] Magnesium SerPl-mCncon 03-18 -2022 Magnesium [Mass/Vol] 2.3 mg/dL Normal 1.7-2.3 [facility] Comment on above: Order Comment: Speci men Type: BLOOD SPECIMENOrdering Facility: [facility] Address: [address] [place] [address] Performed By: #### 1 9123-9, 2777-1, 98515-9 ####[facility] LABORATORYCLIA [id number] [address] NT-proBNP SerPl-ncon 07-22 Natriuretic peptide.B prohormone N-Terminal [Mass/Vol] 328 pg/mL High <125 [facility] Comment on above: Order Comment: Speci men Type: BLOOD SPECIMENOrdering Facility: [facility] Address: [address] [place] [address] Performed By: #### 1 9123-9, 2777-1, 92620-5 ####[facility] LABORATORYCLIA [id number] [address] OF [facility] NURSING PROGon 07-22-2021 NURSING PROG Normal [facility] NUTRITIONon 07-22-2021 NUTRITION Normal [facility] Phosphate [Mass/Vol] 3.5 mg/dL Normal 2.7-4.8 [facility] Comment on above: Order Comment: Speci men Type: BLOOD SPECIMENOrdering Facility: [facility] Address: [address] [place] [address] Performed By: #### 1 9123-9, 2777-1, 71402-0 ####[facility] LABORATORYCLIA [id number] [address] THERAPY NTon 07-22-2021 THERAPY NT Normal [facility] THERAPY NT Normal [facility] aPTT PPPon 07-22-2021 aPTT Coag (PPP) [Time] 50.1 s High 23.0-32.4 [facility] Comment on above: Order Comment: Speci men Type: BLOOD SPECIMENOrdering Facility: [facility] Address: [address] [address] Performed By: #### 1 4979-9 ####[facility] LABORATORYCLIA [id number] [address] [id number] [place] ALLIED HEALTHon 07-21-2021 ALLIED HEALTH Normal [facility] Bacteria Spec Resp Culton Bacteria identified Respiratory culture Nom (Unsp spec) Abnormal [facility] Comment on above: Performed By: #### 3 2355-0 ####[facility] LABORATORYCLIA [id number] [address] STATES OF [facility] Basic metabolic 2000 panelon 07-21-2021 Anion gap [Moles/Vol] 9 mmol/L Normal 9-18 [facility] Comment on above: Order Comment: Speci men Type: BLOOD SPECIMENOrdering Facility: [facility] Address: [address] [place] [address] Performed By: #### 1 9123-9, 2777-, 44744-7 ####[facility] LABORATORYCLIA [id number] [place] [address] [place] Calcium [Mass/Vol] 9.9 mg/dL Normal 8.5-10.2 [facility] Comment on above: Order Comment: Speci men Type: BLOOD SPECIMENOrdering Facility: [facility] Address: [address] [place] [address] Performed By: #### 1 9123-9, 2777-1, 32816-6 ####[facility] LABORATORYCLIA [id number] [place] [address] [place] Chloride [Moles/Vol] 103 mmol/L Normal 97-105 [facility] Comment on above: Order Comment: Speci men Type: BLOOD SPECIMENOrdering Facility: [facility] Address: [address] [place] [address] Performed By: #### 1 9123-9, 2777-1, 07399-0 ####[facility] LABORATORYCLIA [id number] [place] [address] [place] CO2 [Moles/Vol] 33 mmol/L High 22-30 [facility] Comment on above: Order Comment: Speci men Type: BLOOD SPECIMENOrdering Facility: [facility] Address: [address] [place] [address] Performed By: #### 1 9123-9, 2777-1, 69733-4 ####[facility] LABORATORYCLIA [id number] [address] [place] Creatinine [Mass/Vol] 0.80 mg/dL Normal 0.73-1.22 [facility] Comment on above: Order Comment: Speci men Type: BLOOD SPECIMENOrdering Facility: [facility] Address: [address] [place] [address] Performed By: #### 1 9123-9, 27711-04, 04813-7 ####[facility] LABORATORYCLIA [id number] [address] ESTIMATED GLOMERULAR FILTRATION RATE 96 mL/min/1.73m??? Normal >=60 [facility] Comment on above: Order Comment: Speci men Type: BLOOD SPECIMENOrdering Facility: [facility] Address: [address] [place] [address] Result Comment: Luzmaria mated Glomerular Filtration Rate [...] actual GFR. Performed By: #### 1 9123-9, 27771, 24477-5 ####[facility] LABORATORYCLIA [id number] [address] [place] Glucose [Mass/Vol] 148 mg/dL High 74-99 [facility] Comment on above: Order Comment: Speci men Type: BLOOD SPECIMENOrdering Facility: [facility] Address: [address] [place] [address] Result Comment: The [place] [employer] (ADA) provides guidance for cutoff [...] Standards of Medical Care in Diabetes 2016, [place] [employer]. Diabetes Care. 2016.39(Suppl 1). Performed By: #### 1 9123-9, 2777-, 12023-1 ####[facility] LABORATORYCLIA [id number] [place] [address] [place] Potassium [Moles/Vol] 4.1 mmol/L Normal 3.7-5.1 [facility] Comment on above: Order Comment: Speci men Type: BLOOD SPECIMENOrdering Facility: [facility] Address: [address] [place] [address] Performed By: #### 1 9123-9, 2777, 25435-9 ####[facility] LABORATORYCLIA [id number] [place] [address] [place] Sodium [Moles/Vol] 145 mmol/L High 136-144 [facility] Comment on above: Order Comment: Speci men Type: BLOOD SPECIMENOrdering Facility: [facility] Address: [address] [address] Performed By: #### 1 9123-9, 2777-, 99200-7 ####[facility] LABORATORYCLIA [id number] [place] [address] [place] Urea nitrogen [Mass/Vol] 40 mg/dL High 9-24 [facility] Comment on above: Order Comment: Speci men Type: BLOOD SPECIMENOrdering Facility: [facility] Address: [address] [address] Performed By: #### 1 9123-9, 2777-1, 53352-5 ####[facility]ORATORYCLIA [id number] [place] [address] [place] [facility] CBC W Auto Differential pane l (Bld)on 07-21-2021 Basophils (Bld) [#/Vol] 0.06 10*3/uL Normal <0.11 [facility] Comment on above: Order Comment: Speci men Type: BLOOD SPECIMENOrdering Facility: [facility] Address: [address] [place] [address] Performed By: #### 5 7021-8 ####[facility] LABORATORYCLIA [id number] [address] Basophils/100 WBC (Bld) 0.4 % Normal [facility] Comment on above: Order Comment: Speci men Type: BLOOD SPECIMENOrdering Facility: [facility] Address: [address] [place] [address] Performed By: #### 5 7021-8 ####[facility] LABORATORYCLIA [id number] [address] Differential cell count method Nom (Bld) Auto Normal [facility] Comment on above: Order Comment: Speci men Type: BLOOD SPECIMENOrdering Facility: [facility] Address: [address] [place] [address] Performed By: #### 5 7021-8 ####[facility]ORATORYCLIA [id number] [address] [place] Eosinophils (Bld) [#/Vol] 0.04 10*3/uL Normal <0.46 [facility] Comment on above: Order Comment: Speci men Type: BLOOD SPECIMENOrdering Facility: [facility] Address: [address] [place] [address] Performed By: #### 5 7021-8 ####[facility]ORATORYCLIA [id number] [address] Eosinophils/100 WBC (Bld) 0.3 % Normal [facility] Comment on above: Order Comment: Speci men Type: BLOOD SPECIMENOrdering Facility: [facility] Address: [address] [place] [address] Performed By: #### 5 7021-8 ####[facility]ORATORYCLIA [id number] [address] [place] Erythrocyte distribution width (RBC) [Ratio] 17.0 % High 11.5-15.0 [facility] Comment on above: Order Comment: Speci men Type: BLOOD SPECIMENOrdering Facility: [facility] Address: [address] [place] [address] Performed By: #### 5 7021-8 ####[facility]ORATORYCLIA [id number] [address] Hematocrit (Bld) [Volume fraction] 33.1 % Low 39.0-51.0 [facility] Comment on above: Order Comment: Speci men Type: BLOOD SPECIMENOrdering Facility: [facility] Address: [address] [place] [address] Performed By: #### 5 7021-8 ####[facility]ORATORYCLIA [id number] [address] [place] Hemoglobin (Bld) [Mass/Vol] 9.7 g/dL Low 13.0-17.0 [facility] Comment on above: Order Comment: Speci men Type: BLOOD SPECIMENOrdering Facility: [facility] Address: [address] [place] [address] Performed By: #### 5 7021-8 ####[facility] LABORATORYCLIA [id number] [address] [place] IMMATURE GRAN % 0.5 % Normal [facility] Comment on above: Order Comment: Speci men Type: BLOOD SPECIMENOrdering Facility: [facility] Address: [address] [place] [address] Performed By: #### 5 7021-8 ####[facility]ORATORYCLIA [id number] [address] IMMATURE GRAN ABS 0.07 k/uL Normal <0.10 [facility] Comment on above: Order Comment: Speci men Type: BLOOD SPECIMENOrdering Facility: [facility] Address: [address] [place] [address] Performed By: #### 5 7021-8 ####[facility]ORATORYCLIA [id number] [address] Lymphocytes (Bld) [#/Vol] 1.99 10*3/uL Normal 1.00-4.00 [facility] Comment on above: Order Comment: Speci men Type: BLOOD SPECIMENOrdering Facility: [facility] Address: [address] [place] [address] Performed By: #### 5 7021-8 ####[facility]ORATORYCLIA [id number] [address] Lymphocytes/100 WBC (Bld) 13.4 % Normal [facility] Comment on above: Order Comment: Speci men Type: BLOOD SPECIMENOrdering Facility: [facility] Address: [address] [place] [address] Performed By: #### 5 7021-8 ####[facility]ORATORYCLIA [id number] [address] MCH (RBC) [Entitic mass] 27.2 pg Normal 26.0-34.0 [facility] Comment on above: Order Comment: Speci men Type: BLOOD SPECIMENOrdering Facility: [facility] Address: [address] [place] [address] Performed By: #### 5 7021-8 ####[facility]ORATORYCLIA [id number] [address] MCHC (RBC) [Mass/Vol] 29.3 g/dL Low 30.5-36.0 [facility] Comment on above: Order Comment: Speci men Type: BLOOD SPECIMENOrdering Facility: [facility] Address: [address] [place] [address] Performed By: #### 5 7021-8 ####[facility]ORATORYCLIA [id number] [place] [address] [place] MCV (RBC) [Entitic vol] 92.7 fL Normal 80.0-100.0 [facility] Comment on above: Order Comment: Speci men Type: BLOOD SPECIMENOrdering Facility: [facility] Address: [address] [place] [address] Performed By: #### 5 7021-8 ####[facility]ORATORYCLIA [id number] [place] [address] [place] Monocytes (Bld) [#/Vol] 1.10 10*3/uL High <0.87 [facility] Comment on above: Order Comment: Speci men Type: BLOOD SPECIMENOrdering Facility: [facility] Address: [address] [place] [address] Performed By: #### 5 7021-8 ####[facility]ORATORYCLIA [id number] [address] Monocytes/100 WBC (Bld) 7.4 % Normal [facility] Comment on above: Order Comment: Speci men Type: BLOOD SPECIMENOrdering Facility: [facility] Address: [address] [place] [address] Performed By: #### 5 7021-8 ####[facility]ORATORYCLIA [id number] [place] [address] [place] Neutrophils (Bld) [#/Vol] 11.61 10*3/uL High 1.45-7.50 [facility] Comment on above: Order Comment: Speci men Type: BLOOD SPECIMENOrdering Facility: [facility] Address: [address] [place] [address] Performed By: #### 5 7021-8 ####[facility]ORATORYCLIA [id number] [address] [place] Neutrophils/100 WBC (Bld) 78.0 % Normal [facility] Comment on above: Order Comment: Speci men Type: BLOOD SPECIMENOrdering Facility: [facility] Address: [address] Performed By: #### 5 7021-8 ####[facility]ORATORYCLIA [id number] [address] Nucleated RBC (Bld) [#/Vol] 10*3/uL Normal <0.01 [facility] Comment on above: Order Comment: Speci men Type: BLOOD SPECIMENOrdering Facility: [facility] Address: [address] [place] [address] Performed By: #### 5 7021-8 ####[facility]ORATORYCLIA [id number] [address] [place] Nucleated RBC/100 WBC (Bld) [Ratio] 0.0 /100 WBC Normal [facility] Comment on above: Order Comment: Speci men Type: BLOOD SPECIMENOrdering Facility: [facility] Address: [address] [place] [address] Performed By: #### 5 7021-8 ####[facility]ORATORYCLIA [id number] [address] [place] Platelet mean volume (Bld) [Entitic vol] 10.4 fL Normal 9.0-12.7 [facility] Comment on above: Order Comment: Speci men Type: BLOOD SPECIMENOrdering Facility: [facility] Address: [address] [place] [address] Performed By: #### 5 7021-8 ####[facility] LABORATORYCLIA [id number] [address] [place] Platelets (Bld) [#/Vol] 396 10*3/uL Normal 150-400 [facility] Comment on above: Order Comment: Speci men Type: BLOOD SPECIMENOrdering Facility: [facility] Address: [address] [place] [address] Performed By: #### 5 7021-8 ####[facility] LABORATORYCLIA [id number] [place] [address] [place] RBC (Bld) [#/Vol] 3.57 10*6/uL Low 4.20-6.00 [facility] Comment on above: Order Comment: Speci men Type: BLOOD SPECIMENOrdering Facility: [facility] Address: [address] [place] [address] Performed By: #### 5 7021-8 ####[facility]ORATORYCLIA [id number] [place] [address] [place] WBC (Bld) [#/Vol] 14.87 10*3/uL High 3.70-11.00 [facility] Comment on above: Order Comment: Speci men Type: BLOOD SPECIMENOrdering Facility: [facility] Address: [address] [place] [address] Performed By: #### 5 7021-8 ####[facility]ORATORYCLIA [id number] [address] Gas and Carbon monoxide pane l (BldV)on 07-21-2021 Base excess Calc (BldV) [Moles/Vol] 7 mmol/L High 0-2 [facility] Comment on above: Order Comment: Speci men Type: VENOUS BLOOD SPECIMENOrdering Facility: [facility] Address: [address] [place] [address] Performed By: #### 2 4344-4 ####[facility]ORATORYCLIA [id number] [address] [place] Body temperature 98.6 [degF] Normal [facility] Comment on above: Order Comment: Speci men Type: VENOUS BLOOD SPECIMENOrdering Facility: [facility] Address: [address] [place] [address] Performed By: #### 2 4344-4 ####[facility]ORATORYCLIA [id number] [address] [place] CALCIUM IONIZED, PH CORRECTED 1.21 mmol/L Normal 1.08-1.30 [facility] Comment on above: Order Comment: Speci men Type: VENOUS BLOOD SPECIMENOrdering Facility: [facility] Address: [address] [place] [address] Performed By: #### 2 4344-4 ####[facility]ORATORYCLIA [id number] [address] [place] Calcium.ionized (BldV) [Mass/Vol] 1.23 mmol/L Normal 1.08-1.30 [facility] Comment on above: Order Comment: Speci men Type: VENOUS BLOOD SPECIMENOrdering Facility: [facility] Address: [address] [place] [address] Performed By: #### 2 4344-4 ####[facility]ORATORYCLIA [id number] [address] [place] Carboxyhemoglobin (BldV) [Mass fraction] 2.3 % High 0.0-2.0 [facility] Comment on above: Order Comment: Speci men Type: VENOUS BLOOD SPECIMENOrdering Facility: [facility] Address: [address] [place] [address] Result Comment: Carb oxyhemoglobin Reference Range for Smokers: 2.0-8.0% Performed By: #### 2 4344-4 ####[facility]ORATORYCLIA [id number] [place] [address] [place] CO2 (BldV) [Partial pressure] 58 mm[Hg] High 42-55 [facility] Comment on above: Order Comment: Speci men Type: VENOUS BLOOD SPECIMENOrdering Facility: [facility] Address: [address] [place] [address] Performed By: #### 2 4344-4 ####[facility]ORATORYCLIA [id number] [address] [place] CO2 [Moles/Vol] 31 mmol/L High 25-29 [facility] Comment on above: Order Comment: Speci men Type: VENOUS BLOOD SPECIMENOrdering Facility: [facility] Address: [address] [place] [address] Performed By: #### 2 4344-4 ####[facility]ATORYCLIA [id number] [address] [place] Glucose [Mass/Vol] 146 mg/dL High 60-105 [facility] Comment on above: Order Comment: Speci men Type: VENOUS BLOOD SPECIMENOrdering Facility: [facility] Address: [address] [address] Performed By: #### 2 4344-4 ####[facility]ORATORYCLIA [id number] [place] [address] [place] HCO3 (Bld) [Moles/Vol] 33 mmol/L High 24-28 [facility] Comment on above: Order Comment: Speci men Type: VENOUS BLOOD SPECIMENOrdering Facility: [facility] Address: [facility] [address] Performed By: #### 2 4344-4 ####[facility]ORATORYCLIA [id number] [address] [place] Hematocrit (Bld) [Volume fraction] 30.1 % Low 39.0-51.0 [facility] Comment on above: Order Comment: Speci men Type: VENOUS BLOOD SPECIMENOrdering Facility: [facility] Address: [address] [address] Performed By: #### 2 4344-4 ####[facility]ORATORYCLIA [id number] [address] [place] Hemoglobin (Bld) [Mass/Vol] 9.7 g/dL Low 13.0-17.0 [facility] Comment on above: Order Comment: Speci men Type: VENOUS BLOOD SPECIMENOrdering Facility: [facility] Address: [address] [address] Performed By: #### 2 4344-4 ####[facility]ORATORYCLIA [id number] [address] [place] Methemoglobin (Bld) [Mass fraction] % Normal 0.0-1.5 [facility] Comment on above: Order Comment: Speci men Type: VENOUS BLOOD SPECIMENOrdering Facility: [facility] Address: [address] [place] [address] Performed By: #### 2 4344-4 ####[facility]ORATORYCLIA [id number] [address] O2 THERAPY [place] = Nasal Cannula Normal [facility] Comment on above: Order Comment: Speci men Type: VENOUS BLOOD SPECIMENOrdering Facility: [facility] Address: [address] [place] [address] Performed By: #### 2 4344-4 ####[facility]ORATORYCLIA [id number] [address] [place] Oxygen (BldV) [Partial pressure] 64 mm[Hg] High 35-45 [facility] Comment on above: Order Comment: Speci men Type: VENOUS BLOOD SPECIMENOrdering Facility: [facility] Address: [address] [place] [address] Performed By: #### 2 4344-4 ####[facility]ORATORYCLIA [id number] [address] [place] Oxygen saturation in Blood 90 % High 60-85 [facility] Comment on above: Order Comment: Speci men Type: VENOUS BLOOD SPECIMENOrdering Facility: [facility] Address: [address] [place] [address] Performed By: #### 2 4344-4 ####[facility]ORATORYCLIA [id number] [address] [place] Oxyhemoglobin (BldV) [Mass fraction] 87 % High 60-85 [facility] Comment on above: Order Comment: Speci men Type: VENOUS BLOOD SPECIMENOrdering Facility: [facility] Address: [address] [place] [address] Performed By: #### 2 4344-4 ####[facility]ORATORYCLIA [id number] [address] [place] pH (BldV) 7.38 [pH] Normal 7.32-7.42 [facility] Comment on above: Order Comment: Speci men Type: VENOUS BLOOD SPECIMENOrdering Facility: [facility] Address: [address] [address] Performed By: #### 2 4344-4 ####[facility] LABORATORYCLIA [id number] [place] [address] [place] Potassium [Moles/Vol] 3.8 mmol/L Normal 3.5-5.0 [facility] Comment on above: Order Comment: Speci men Type: VENOUS BLOOD SPECIMENOrdering Facility: [facility] Address: [address] [place] [address] Performed By: #### 2 4344-4 ####[facility] LABORATORYCLIA [id number] [place] [address] [place] Sodium [Moles/Vol] 145 mmol/L High 136-144 [facility] Comment on above: Order Comment: Speci men Type: VENOUS BLOOD SPECIMENOrdering Facility: [facility] Address: [address] [place] [address] Performed By: #### 2 4344-4 ####[facility] LABORATORYCLIA [id number] [place] [address] [place] Base excess Calc (BldV) [Moles/Vol] 8 mmol/L High 0-2 [facility] Comment on above: Order Comment: Speci men Type: VENOUS BLOOD SPECIMENOrdering Facility: [facility] Address: [address] [place] [address] Performed By: #### 2 4344-4 ####[facility] LABORATORYCLIA [id number] [address] [place] Body temperature 100.22 [degF] Normal [facility] Comment on above: Order Comment: Speci men Type: VENOUS BLOOD SPECIMENOrdering Facility: [facility] Address: [address] [place] [address] Performed By: #### 2 4344-4 ####[facility] LABORATORYCLIA [id number] [place] [address] [place] CALCIUM IONIZED, PH CORRECTED 1.25 mmol/L Normal 1.08-1.30 [facility] Comment on above: Order Comment: Speci men Type: VENOUS BLOOD SPECIMENOrdering Facility: [facility] Address: [address] [place] [address] Performed By: #### 2 4344-4 ####[facility] LABORATORYCLIA [id number] [place] [address] [place] Calcium.ionized (BldV) [Mass/Vol] 1.24 mmol/L Normal 1.08-1.30 [facility] Comment on above: Order Comment: Speci men Type: VENOUS BLOOD SPECIMENOrdering Facility: [facility] Address: [address] [place] [address] Performed By: #### 2 4344-4 ####[facility] LABORATORYCLIA [id number] [address] [place] Carboxyhemoglobin (BldV) [Mass fraction] 2.5 % High 0.0-2.0 [facility] Comment on above: Order Comment: Speci men Type: VENOUS BLOOD SPECIMENOrdering Facility: [facility] Address: [address] [place] [address] Result Comment: Carb oxyhemoglobin Reference Range for Smokers: 2.0-8.0% Performed By: #### 2 4344-4 ####[facility] LABORATORYCLIA [id number] [address] [place] CO2 (BldV) [Partial pressure] 53 mm[Hg] Normal 42-55 [facility] Comment on above: Order Comment: Speci men Type: VENOUS BLOOD SPECIMENOrdering Facility: [facility] Address: [address] [place] [address] Performed By: #### 2 4344-4 ####[facility] LABORATORYCLIA [id number] [address] [place] CO2 [Moles/Vol] 31 mmol/L High 25-29 [facility] Comment on above: Order Comment: Speci men Type: VENOUS BLOOD SPECIMENOrdering Facility: [facility] Address: [address] [place] [address] Performed By: #### 2 4344-4 ####[facility] LABORATORYCLIA [id number] [address] STATES OF [facility] CO2 adjusted to patient's actual temperature (BldV) [Partial pressure] 56 mmHg High 42-55 [facility] Comment on above: Order Comment: Speci men Type: VENOUS BLOOD SPECIMENOrdering Facility: [facility] Address: [address] [place] [address] Performed By: #### 2 4344-4 ####[facility] LABORATORYCLIA [id number] [address] [place] Glucose [Mass/Vol] 131 mg/dL High 60-105 [facility] Comment on above: Order Comment: Speci men Type: VENOUS BLOOD SPECIMENOrdering Facility: [facility] Address: [address] [place] [address] Performed By: #### 2 4344-4 ####[facility] LABORATORYCLIA [id number] [address] [place] HCO3 (Bld) [Moles/Vol] 33 mmol/L High 24-28 [facility] Comment on above: Order Comment: Speci men Type: VENOUS BLOOD SPECIMENOrdering Facility: [facility] Address: [address] [place] [address] Performed By: #### 2 4344-4 ####[facility] LABORATORYCLIA [id number] [address] [place] Hematocrit (Bld) [Volume fraction] 30.8 % Low 39.0-51.0 [facility] Comment on above: Order Comment: Speci men Type: VENOUS BLOOD SPECIMENOrdering Facility: [facility] Address: [address] [place] [address] Performed By: #### 2 4344-4 ####[facility] LABORATORYCLIA [id number] [address] [place] Hemoglobin (Bld) [Mass/Vol] 10.0 g/dL Low 13.0-17.0 [facility] Comment on above: Order Comment: Speci men Type: VENOUS BLOOD SPECIMENOrdering Facility: [facility] Address: [address] [address] Performed By: #### 2 4344-4 ####[facility] LABORATORYCLIA [id number] [address] Methemoglobin (Bld) [Mass fraction] % Normal 0.0-1.5 [facility] Comment on above: Order Comment: Speci men Type: VENOUS BLOOD SPECIMENOrdering Facility: [facility] Address: [address] [address] Performed By: #### 2 4344-4 ####[facility] LABORATORYCLIA [id number] [address] O2 THERAPY NC = Nasal Cannula Normal [facility] Comment on above: Order Comment: Speci men Type: VENOUS BLOOD SPECIMENOrdering Facility: [facility] Address: [address] [address] Performed By: #### 2 4344-4 ####[facility] LABORATORYCLIA [id number] [address] Oxygen (BldV) [Partial pressure] 58 mm[Hg] High 35-45 [facility] Comment on above: Order Comment: Speci men Type: VENOUS BLOOD SPECIMENOrdering Facility: [facility] Address: [address] [address] Performed By: #### 2 4344-4 ####[facility] LABORATORYCLIA [id number] [address] Oxygen adjusted to patient's actual temperature (BldV) [Partial pressure] 61 mmHg High 35-45 [facility] Comment on above: Order Comment: Speci men Type: VENOUS BLOOD SPECIMENOrdering Facility: [facility] Address: [address] [address] Performed By: #### 2 4344-4 ####[facility] LABORATORYCLIA [id number] [place] [address] [place] Oxygen saturation in Blood 88 % High 60-85 [facility] Comment on above: Order Comment: Speci men Type: VENOUS BLOOD SPECIMENOrdering Facility: [facility] Address: [facility] [address] Performed By: #### 2 4344-4 ####[facility] LABORATORYCLIA [id number] [address] [place] Oxyhemoglobin (BldV) [Mass fraction] 85 % Normal 60-85 [facility] Comment on above: Order Comment: Speci men Type: VENOUS BLOOD SPECIMENOrdering Facility: [facility] Address: [address] [place] [address] Performed By: #### 2 4344-4 ####[facility] LABORATORYCLIA [id number] [address] OF [facility] pH (BldV) 7.41 [pH] Normal 7.32-7.42 [facility] Comment on above: Order Comment: Speci men Type: VENOUS BLOOD SPECIMENOrdering Facility: [facility] Address: [address] [place] [address] Performed By: #### 2 4344-4 ####[facility] LABORATORYCLIA [id number] [address] pH adjusted to patient's actual temperature (BldV) 7.40 Normal 7.32-7.42 [facility] Comment on above: Order Comment: Speci men Type: VENOUS BLOOD SPECIMENOrdering Facility: [facility] Address: [address] [place] [address] Performed By: #### 2 4344-4 ####[facility] LABORATORYCLIA [id number] [address] [place] Potassium [Moles/Vol] 4.0 mmol/L Normal 3.5-5.0 [facility] Comment on above: Order Comment: Speci men Type: VENOUS BLOOD SPECIMENOrdering Facility: [facility] Address: [address] [place] [address] Performed By: #### 2 4344-4 ####[facility] LABORATORYCLIA [id number] [address] STATES OF [facility] Sodium [Moles/Vol] 146 mmol/L High 136-144 [facility] Comment on above: Order Comment: Speci men Type: VENOUS BLOOD SPECIMENOrdering Facility: [facility] Address: [address] [place] [address] Performed By: #### 2 4344-4 ####[facility] LABORATORYCLIA [id number] [address] [place] Magnesium SerPl-ncon 07-21 Magnesium [Mass/Vol] 2.5 mg/dL High 1.7-2.3 [facility] Comment on above: Order Comment: Speci men Type: BLOOD SPECIMENOrdering Facility: [facility] Address: [address] [place] [address] Performed By: #### 1 9123-9, 2777-1, 27064-1 ####[facility] LABORATORYCLIA [id number] [address] OF [facility] NURSING PROGon 07-21-2021 NURSING PROG Normal [facility] Phosphate SerPl-mCncon 07-21 Phosphate [Mass/Vol] 3.7 mg/dL Normal 2.7-4.8 [facility] Comment on above: Order Comment: Speci men Type: BLOOD SPECIMENOrdering Facility: [facility] Address: [address] [place] [address] Performed By: #### 1 9123-9, 2777-1, 57546-8 ####[facility] LABORATORYCLIA [id number] [address] [place] THERAPY NTon 07-21-2021 THERAPY NT Normal [facility] XR CHEST 1V FRONTALon 2021 XR CHEST 1V FRONTAL Normal [facility] aPTT PPPon 07-21-2021 aPTT Coag (PPP) [Time] 53.0 s High 23.0-32.4 [facility] Comment on above: Order Comment: Speci men Type: BLOOD SPECIMENOrdering Facility: [facility] Address: [address] [place] [address] Performed By: #### 1 4979-9 ####[facility] LABORATORYCLIA [id number] [place] [address] [place] ALLIED HEALTHon 07-20-2021 ALLIED HEALTH Normal [facility] Basic metabolic 2000 panelon 07-20-2021 Anion gap [Moles/Vol] 8 mmol/L Low 9-18 [facility] Comment on above: Order Comment: Speci men Type: BLOOD SPECIMENOrdering Facility: [facility] Address: [address] [place] [address] Performed By: #### 2 4321-2, , 2776-05 ####[facility] LABORATORYCLIA [id number] [place] [address] [place] Calcium [Mass/Vol] 9.7 mg/dL Normal 8.5-10.2 [facility] Comment on above: Order Comment: Speci men Type: BLOOD SPECIMENOrdering Facility: [facility] Address: [address] [place] [address] Performed By: #### 2 4321-2, , 2776-05 ####[facility] LABORATORYCLIA [id number] [place] [address] [place] Chloride [Moles/Vol] 104 mmol/L Normal 97-105 [facility] Comment on above: Order Comment: Speci men Type: BLOOD SPECIMENOrdering Facility: [facility] Address: [address] [place], [place] [address] Performed By: #### 2 4321-2, , 2776-05 ####[facility] LABORATORYCLIA [id number] [place] [address] [place] CO2 [Moles/Vol] 34 mmol/L High 22-30 [facility] Comment on above: Order Comment: Speci men Type: BLOOD SPECIMENOrdering Facility: [facility] Address: [address] [place], [place] [address] Performed By: #### 2 4321-2, 28694-3, 2776-05 ####[facility] HE[facility] SERVICESCLIA [id number] [address] [id number] [place] [facility] Creatinine [Mass/Vol] 0.76 mg/dL Normal 0.73-1.22 [facility] Comment on above: Order Comment: Speccara feldman Type: BLOOD SPECIMENOrdering Facility: [facility] Address: [address] [address] Performed By: #### 2 4321-2, , 2776-05 ####[facility] HE[facility] SERVICESCLIA [id number] [place] [id number] [facility] ESTIMATED GLOMERULAR FILTRATION RATE 97 mL/min/1.73m??? Normal >=60 [facility] Comment on above: Order Comment: Speccara feldman Type: BLOOD SPECIMENOrdering Facility: [facility] Address: [address] [address] Result Comment: Luzmaria mated Glomerular Filtration Rate [...] actual GFR. Performed By: #### 2 4321-2, 43769-7, 2776-05 ####[facility] LABORATORYCLIA [id number] [place] [id number] [place] Glucose [Mass/Vol] 123 mg/dL High 74-99 [facility] Comment on above: Order Comment: Speci men Type: BLOOD SPECIMENOrdering Facility: [facility] Address: [address] Result Comment: The [place] [employer] (ADA) provides guidance for cutoff [...] Standards of Medical Care in Diabetes 2016, [place] [employer]. Diabetes Care. 2016.39(Suppl 1). Performed By: #### 2 4321-2, , 2776-05 ####[facility] LABORATORYCLIA [id number] [place] [address] [place] Potassium [Moles/Vol] 4.4 mmol/L Normal 3.7-5.1 [facility] Comment on above: Order Comment: Shira feldman Type: BLOOD SPECIMENOrdering Facility: [facility] Address: [address] [place] [address] Performed By: #### 2 432-2, , 2776-05 ####[facility] LABORATORYCLIA [id number] [place] [address] [place] Sodium [Moles/Vol] 146 mmol/L High 136-144 [facility] Comment on above: Order Comment: Shira feldman Type: BLOOD SPECIMENOrdering Facility: [facility] Address: [address] [place] [address] Performed By: #### 2 4321-2, , 2776-05 ####[facility] LABORATORYCLIA [id number] [place] [address] [place] Urea nitrogen [Mass/Vol] 38 mg/dL High 9-24 [facility] Comment on above: Order Comment: Johni francia Type: BLOOD SPECIMENOrdering Facility: [facility] Address: [address] [place] [address] Performed By: #### 2 4321-2, , 2776-05 ####[facility] LABORATORYCLIA [id number] [place] [address] [place] CASE MANAGEMon 07-20-2021 CASE MANAGEM Normal [facility] CBC W Auto Differential pane l (Bld)on 07-20-2021 Basophils (Bld) [#/Vol] 0.05 10*3/uL Normal <0.11 [facility] Comment on above: Order Comment: Speci men Type: BLOOD SPECIMENOrdering Facility: [facility] Address: [address] [place] [address] Performed By: #### 5 7021-8 ####[facility]ORATORYCLIA [id number] [address] [place] Basophils/100 WBC (Bld) 0.5 % Normal [facility] Comment on above: Order Comment: Speci men Type: BLOOD SPECIMENOrdering Facility: [facility] Address: [address] [place] [address] Performed By: #### 5 7021-8 ####[facility] LABORATORYCLIA [id number] [address] Differential cell count method Nom (Bld) Auto Normal [facility] Comment on above: Order Comment: Speci men Type: BLOOD SPECIMENOrdering Facility: [facility] Address: [address] [place] [address] Performed By: #### 5 7021-8 ####[facility] LABORATORYCLIA [id number] [place] [address] [place] Eosinophils (Bld) [#/Vol] 0.43 10*3/uL Normal <0.46 [facility] Comment on above: Order Comment: Speci men Type: BLOOD SPECIMENOrdering Facility: [facility] Address: [address] [place] [address] Performed By: #### 5 7021-8 ####[facility]ORATORYCLIA [id number] [address] [place] Eosinophils/100 WBC (Bld) 4.1 % Normal [facility] Comment on above: Order Comment: Speci men Type: BLOOD SPECIMENOrdering Facility: [facility] Address: [address] [place] [address] Performed By: #### 5 7021-8 ####[facility] LABORATORYCLIA [id number] [address] Erythrocyte distribution width (RBC) [Ratio] 16.7 % High 11.5-15.0 [facility] Comment on above: Order Comment: Speci men Type: BLOOD SPECIMENOrdering Facility: [facility] Address: [address] [place] [address] Performed By: #### 5 7021-8 ####[facility] LABORATORYCLIA [id number] [address] Hematocrit (Bld) [Volume fraction] 33.0 % Low 39.0-51.0 [facility] Comment on above: Order Comment: Speci men Type: BLOOD SPECIMENOrdering Facility: [facility] Address: [address] [place] [address] Performed By: #### 5 7021-8 ####[facility] HE[facility] SERVICESCLIA [id number] [address] Hemoglobin (Bld) [Mass/Vol] 9.7 g/dL Low 13.0-17.0 [facility] Comment on above: Order Comment: Speci men Type: BLOOD SPECIMENOrdering Facility: [facility] Address: [address] [place] [address] Performed By: #### 5 7021-8 ####[facility] LABORATORYCLIA [id number] [address] IMMATURE GRAN % 0.4 % Normal [facility] Comment on above: Order Comment: Speci men Type: BLOOD SPECIMENOrdering Facility: [facility] Address: [address] [place] [address] Performed By: #### 5 7021-8 ####[facility] LABORATORYCLIA [id number] [address] IMMATURE GRAN ABS 0.04 k/uL Normal <0.10 [facility] Comment on above: Order Comment: Speci men Type: BLOOD SPECIMENOrdering Facility: [facility] Address: [address] [place] [address] Performed By: #### 5 7021-8 ####[facility] LABORATORYCLIA [id number] [address] [place] Lymphocytes (Bld) [#/Vol] 1.99 10*3/uL Normal 1.00-4.00 [facility] Comment on above: Order Comment: Speci men Type: BLOOD SPECIMENOrdering Facility: [facility] Address: [address] [place] [address] Performed By: #### 5 7021-8 ####[facility] LABORATORYCLIA [id number] [address] Lymphocytes/100 WBC (Bld) 18.8 % Normal [facility] Comment on above: Order Comment: Speci men Type: BLOOD SPECIMENOrdering Facility: [facility] Address: [address] [place] [address] Performed By: #### 5 7021-8 ####[facility] LABORATORYCLIA [id number] [address] [place] MCH (RBC) [Entitic mass] 27.8 pg Normal 26.0-34.0 [facility] Comment on above: Order Comment: Speci men Type: BLOOD SPECIMENOrdering Facility: [facility] Address: [address] [place] [address] Performed By: #### 5 7021-8 ####[facility] LABORATORYCLIA [id number] [address] [place] MCHC (RBC) [Mass/Vol] 29.4 g/dL Low 30.5-36.0 [facility] Comment on above: Order Comment: Speci men Type: BLOOD SPECIMENOrdering Facility: [facility] Address: [address] [place] [address] Performed By: #### 5 7021-8 ####[facility] LABORATORYCLIA [id number] [address] MCV (RBC) [Entitic vol] 94.6 fL Normal 80.0-100.0 [facility] Comment on above: Order Comment: Speci men Type: BLOOD SPECIMENOrdering Facility: [facility] Address: [address] [place] [address] Performed By: #### 5 7021-8 ####[facility] LABORATORYCLIA [id number] [place] [address] [place] Monocytes (Bld) [#/Vol] 0.82 10*3/uL Normal <0.87 [facility] Comment on above: Order Comment: Speci men Type: BLOOD SPECIMENOrdering Facility: [facility] Address: [address] [place] [address] Performed By: #### 5 7021-8 ####[facility] LABORATORYCLIA [id number] [address] [place] Monocytes/100 WBC (Bld) 7.8 % Normal [facility] Comment on above: Order Comment: Speci men Type: BLOOD SPECIMENOrdering Facility: [facility] Address: [address] [place] [address] Performed By: #### 5 7021-8 ####[facility]ORATORYCLIA [id number] [place] [address] [place] Neutrophils (Bld) [#/Vol] 7.23 10*3/uL Normal 1.45-7.50 [facility] Comment on above: Order Comment: Speci men Type: BLOOD SPECIMENOrdering Facility: [facility] Address: [address] [place] [address] Performed By: #### 5 7021-8 ####[facility]ORATORYCLIA [id number] [place] [address] [place] Neutrophils/100 WBC (Bld) 68.4 % Normal [facility] Comment on above: Order Comment: Speci men Type: BLOOD SPECIMENOrdering Facility: [facility] Address: [address] [place] [address] Performed By: #### 5 7021-8 ####[facility] LABORATORYCLIA [id number] [address] [place] Nucleated RBC (Bld) [#/Vol] 10*3/uL Normal <0.01 [facility] Comment on above: Order Comment: Speci men Type: BLOOD SPECIMENOrdering Facility: [facility] Address: [address] [place] [address] Performed By: #### 5 7021-8 ####[facility] LABORATORYCLIA [id number] [address] [place] Nucleated RBC/100 WBC (Bld) [Ratio] 0.0 /100 WBC Normal [facility] Comment on above: Order Comment: Speci men Type: BLOOD SPECIMENOrdering Facility: [facility] Address: [address] [place] [address] Performed By: #### 5 7021-8 ####[facility] LABORATORYCLIA [id number] [address] Platelet mean volume (Bld) [Entitic vol] 10.5 fL Normal 9.0-12.7 [facility] Comment on above: Order Comment: Speci men Type: BLOOD SPECIMENOrdering Facility: [facility] Address: [address] [place] [address] Performed By: #### 5 7021-8 ####[facility] LABORATORYCLIA [id number] [address] [place] Platelets (Bld) [#/Vol] 400 10*3/uL Normal 150-400 [facility] Comment on above: Order Comment: Speci men Type: BLOOD SPECIMENOrdering Facility: [facility] Address: [address] [place] [address] Performed By: #### 5 7021-8 ####[facility] LABORATORYCLIA [id number] [address] [place] RBC (Bld) [#/Vol] 3.49 10*6/uL Low 4.20-6.00 [facility] Comment on above: Order Comment: Speci men Type: BLOOD SPECIMENOrdering Facility: [facility] Address: [address] [place] [address] Performed By: #### 5 7021-8 ####[facility] LABORATORYCLIA [id number] [address] WBC (Bld) [#/Vol] 10.56 10*3/uL Normal 3.70-11.00 [facility] Comment on above: Order Comment: Speci men Type: BLOOD SPECIMENOrdering Facility: [facility] Address: [address] [place] [address] Performed By: #### 5 7021-8 ####[facility] LABORATORYCLIA [id number] [address] CONSULT PROGon 07-20-2021 CONSULT PROG Normal [facility] CT BRAIN WO IVCONon 07-21-[address] BRAIN WO IVCON Normal [facility] Magnesium SerPl-mCncon 07-20 Magnesium [Mass/Vol] 2.4 mg/dL High 1.7-2.3 [facility] Comment on above: Order Comment: Speci men Type: BLOOD SPECIMENOrdering Facility: [facility] Address: [address] [place] [address] Performed By: #### 2 [id number], , [id number] ####[facility] LABORATORYCLIA [id number] [address] OF [facility] NUTRITIONon 07-20-2021 NUTRITION Normal [facility] Phosphate SerPl-mCncon 07-20 Phosphate [Mass/Vol] 4.1 mg/dL Normal 2.7-4.8 [facility] Comment on above: Order Comment: Speci men Type: BLOOD SPECIMENOrdering Facility: [facility] Address: [address] [place] [address] Performed By: #### 2 4321-2, 51406-2, 2777-1 ####[facility] LABORATORYCLIA [id number] [address] aPTT PPPon 07-20-2021 aPTT Coag (PPP) [Time] 53.6 s High 23.0-32.4 [facility] Comment on above: Order Comment: Speci men Type: BLOOD SPECIMENOrdering Facility: [facility] Address: [address] [place] [address] Performed By: #### 1 4979-9 ####[facility] LABORATORYCLIA [id number] [place] [address] [place] Bacteria CSF Culton 07-20-19 22 Bacteria identified Cx Nom (CSF) CULTURE, CSF: No growth 14 days GRAM STAIN: No organisms seen No Polymorphonuclear Leukocytes Rare Mononuclear cells Gram stain performed on cytospun specimen. Normal [facility] Comment on above: Performed By: #### 6 06-4 ####[facility] LABORATORYCLIA [id number] [address] OF [facility] CONSULT PROGon 07-19-2021 CONSULT PROG Normal [facility] CSF MANUAL DIFFon 07-19-2021 DIF TTL, CSF 100 cells counted Normal [facility] Comment on above: Order Comment: Speci men Type: CEREBROSPINAL FLUIDOrdering Facility: [facility] Address: [address] [place] [address] Performed By: #### L [id number], 06852-2, [id number] ####[facility] LABORATORYCLIA [id number] [place] [address] [place] EOSIN%, CSF 1 % Normal [facility] Comment on above: Order Comment: Speci men Type: CEREBROSPINAL FLUIDOrdering Facility: [facility] Address: [address] [address] Performed By: #### L [id number], 64693-5, [id number] ####[facility]ORATORYCLIA [id number] [place] [address] [place] LYMPH%, CSF 67 % Normal 50-90 [facility] Comment on above: Order Comment: Speci men Type: CEREBROSPINAL FLUIDOrdering Facility: [facility] Address: [address] [address] Performed By: #### L MR0342, 38110-3, [id number] ####[facility]ATORYCLIA [id number] [place] [address] [place] MACRO%, CSF 1 % High <1 [facility] Comment on above: Order Comment: Speci men Type: CEREBROSPINAL FLUIDOrdering Facility: [facility] Address: [address] [place] [address] Performed By: #### L SR4059, 25222-2, [id number] ####[facility]ATORYCLIA [id number] [place] [address] [place] MONO%, CSF 18 % Normal 10-50 [facility] Comment on above: Order Comment: Speci men Type: CEREBROSPINAL FLUIDOrdering Facility: [facility] Address: [address] [place] [address] Performed By: #### L PY1484, 00616-3, [id number] ####[facility]ORATORYCLIA [id number] [address] [place] NEUT%, CSF 11 % High 0-3 [facility] Comment on above: Order Comment: Speci men Type: CEREBROSPINAL FLUIDOrdering Facility: [facility] Address: [address] [place] [address] Performed By: #### L [id number], 43340-6, [id number] ####[facility]ORYCLIA [id number] [address] OF [place] OTHER CL%, CSF 2 % Normal [facility] Comment on above: Order Comment: Speci men Type: CEREBROSPINAL FLUIDOrdering Facility: [facility] Address: [address] [place] [address] Result Comment: Path review to follow. Performed By: #### L [id number], 46587-0, [id number] ####[facility]ATORYCLIA [id number] [address] CSF PATHOLOGIST INTERP (LAB REFLEX ORDER-NO BILL)on 07-19-2021 CSF STAFF REVIEW Normal [facility] Comment on above: Order Comment: Speci men Type: CEREBROSPINAL FLUIDOrdering Facility: [facility] Address: [address] [place] [address] Performed By: #### L SU1044, 48791-0, [id number] ####[facility] LABORATORYCLIA [id number] [address] Pathologist name Reviewed by Wing Cummings MD [facility] Comment on above: Order Comment: Speci men Type: CEREBROSPINAL FLUIDOrdering Facility: [facility] Address: [address] [place] [address] Performed By: #### L [id number], 16670-3, [id number] ####[facility]ORATORYCLIA [id number] [address] Cell count panel (CSF)on Clarity (CSF) Clear Normal Clear [facility] Comment on above: Order Comment: Speci men Type: CEREBROSPINAL FLUIDOrdering Facility: [facility] Address: [address] [place] [address] Performed By: #### L [id number], 33909-0, [id number] ####[facility] LABORATORYCLIA [id number] [address] Clarity (Unsp spec) Not Indicated Normal Clear [facility] Comment on above: Order Comment: Speci men Type: CEREBROSPINAL FLUIDOrdering Facility: [facility] Address: [address] [place], [place] [address] Performed By: #### L [id number], 04499-8, [id number] ####[facility]ORATORYCLIA [id number] [address] Color (CSF) Colorless Normal Colorless [facility] Comment on above: Order Comment: Speci men Type: CEREBROSPINAL FLUIDOrdering Facility: [facility] Address: [address] [place] [address] Performed By: #### L MV3694, 30825-2, [id number] ####[facility] LABORATORYCLIA [id number] [address] STATES OF [facility] Color (Spun CSF) Not Indicated Normal Colorless [facility] Comment on above: Order Comment: Speci men Type: CEREBROSPINAL FLUIDOrdering Facility: [facility] Address: [address] [place] [address] Performed By: #### L QN4797, 52671-9, [id number] ####[facility] LABORATORYCLIA [id number] [address] OF [place] CSF TUBE [employer] Normal [facility] Comment on above: Order Comment: Speci men Type: CEREBROSPINAL FLUIDOrdering Facility: [facility] Address: [address] [place] [address] Performed By: #### L [id number], 46435-3, [id number] ####[facility]ORATORYCLIA [id number] [address] OF [facility] RBC Manual cnt (CSF) [#/Vol] 0 cells/uL Normal 0-5 [facility] Comment on above: Order Comment: Speci men Type: CEREBROSPINAL FLUIDOrdering Facility: [facility] Address: [address] [place] [address] Performed By: #### L [id number], 78193-1, [id number] ####[facility]ORATORYCLIA [id number] [address] WBC Manual cnt (CSF) [#/Vol] 2 cells/uL Normal 0-5 [facility] Comment on above: Order Comment: Speci men Type: CEREBROSPINAL FLUIDOrdering Facility: [facility] Address: [address] [place] [address] Performed By: #### L NJ6884, 31325-3, [id number] ####[facility]ORATORYCLIA [id number] [address] [place] Glucose CSF-mCncon 2 Glucose (CSF) [Mass/Vol] 69 mg/dL Normal 40-70 [facility] Comment on above: Order Comment: Speci men Type: CEREBROSPINAL FLUIDOrdering Facility: [facility] Address: [address] [place] [address] Result Comment: Lumb ar CSF glucose values of healthy patients are approximately 60% of the plasma values and must always be compared with a concurrently measured plasma value for adequate clinical interpretation.References: 1. Glucose HK (GLUC3) [package insert V 12.0 Burkinan]. [employer], [place], [place]. September 2015. 2. Michelle Moore, Loki HGarfield (2015). Chapter 7: Glucose and Lactate. F. Irina rose al.(eds.), Cerebrospinal Fluid in Clinical Neurology. Stewart: [place]. Performed By: #### 2 342-4, 2880-3 ####[facility]ORATORYCLIA [id number] [address] [place] NURSING PROGon 07-19-2021 NURSING PROG Normal [facility] NURSING PROG Normal [facility] Prot CSF-mCncon 07-19-2021 Protein (CSF) [Mass/Vol] 51 mg/dL High 15-45 [facility] Comment on above: Order Comment: Speci men Type: CEREBROSPINAL FLUIDOrdering Facility: [facility] Address: [address] [place] [address] Performed By: #### 2 342-4, 2880-3 ####[facility]ORATORYCLIA [id number] [address] [place] THERAPY NTon 07-19-2021 THERAPY NT Normal [facility] Urinalysis complete panel (U )on 07-19-2021 Bilirubin Ql (U) Negative Normal Negative [facility] Comment on above: Order Comment: Speci men Type: URINE SPECIMENOrdering Facility: [facility] Address: [address] [place] [address] Performed By: #### 2 4356-8 ####[facility]ORATORYCLIA [id number] [address] [place] Clarity (Unsp spec) Clear Normal Clear [facility] Comment on above: Order Comment: Speci men Type: URINE SPECIMENOrdering Facility: [facility] Address: [address] [place] [address] Performed By: #### 2 4356-8 ####[facility]ORATORYCLIA [id number] [address] Color (U) Colorless Normal yellow [facility] Comment on above: Order Comment: Speci men Type: URINE SPECIMENOrdering Facility: [facility] Address: [address] [place] [address] Performed By: #### 2 4356-8 ####[facility]ORATORYCLIA [id number] [address] Glucose Test strip (U) [Mass/Vol] Negative Normal Negative [facility] Comment on above: Order Comment: Speci men Type: URINE SPECIMENOrdering Facility: [facility] Address: [address] [place] [address] Performed By: #### 2 4356-8 ####[facility]ORATORYCLIA [id number] [address] STATES [facility] Hemoglobin Ql (U) Trace Abnormal Negative [facility] Comment on above: Order Comment: Speci men Type: URINE SPECIMENOrdering Facility: [facility] Address: [address] [place] [address] Performed By: #### 2 4356-8 ####[facility]ORATORYCLIA [id number] [address] [place] Hyaline casts (Urine sed) [#/Area] 1-3 /LPF Abnormal 0 /LPF [facility] Comment on above: Order Comment: Speci men Type: URINE SPECIMENOrdering Facility: [facility] Address: [address] [place] [address] Performed By: #### 2 4356-8 ####[facility]ORATORYCLIA [id number] [address] [place] Ketones Ql (U) Negative Normal Negative [facility] Comment on above: Order Comment: Speci men Type: URINE SPECIMENOrdering Facility: [facility] Address: [address] [place] [address] Performed By: #### 2 4356-8 ####[facility]ORATORYCLIA [id number] [address] Leukocyte esterase Test strip Ql (U) Negative Normal Negative [facility] Comment on above: Order Comment: Speci men Type: URINE SPECIMENOrdering Facility: [facility] Address: [address] [place] [address] Performed By: #### 2 4356-8 ####[facility]ORATORYCLIA [id number] [address] Nitrite Ql (U) Negative Normal Negative [facility] Comment on above: Order Comment: Speci men Type: URINE SPECIMENOrdering Facility: [facility] Address: [address] [place] [address] Performed By: #### 2 4356-8 ####[facility]ORATORYCLIA [id number] [address] STATES [facility] pH (U) 7.0 [pH] Normal 5.0-8.0 [facility] Comment on above: Order Comment: Speci men Type: URINE SPECIMENOrdering Facility: [facility] Address: [address] [place] [address] Performed By: #### 2 4356-8 ####[facility]ATORYCLIA [id number] [address] Protein (U) [Mass/Vol] Negative Normal Negative [facility] Comment on above: Order Comment: Speci men Type: URINE SPECIMENOrdering Facility: [facility] Address: [address] [place] [address] Performed By: #### 2 4356-8 ####[facility]ORATORYCLIA [id number] [address] [place] RBC LM.HPF (Urine sed) [#/Area] 6-10 /HPF Abnormal 0-3 /HPF [facility] Comment on above: Order Comment: Speci men Type: URINE SPECIMENOrdering Facility: [facility] Address: [address] [address] Performed By: #### 2 4356-8 ####[facility]ORATORYCLIA [id number] [address] STATES [facility] Specific gravity (U) [Rel density] 1.008 Normal 1.005-1.030 [facility] Comment on above: Order Comment: Speci men Type: URINE SPECIMENOrdering Facility: [facility] Address: [address] [address] Performed By: #### 2 4356-8 ####[facility]ORATORYCLIA [id number] [address] Urobilinogen Ql (U) Normal Normal Negative [facility] Comment on above: Order Comment: Speci men Type: URINE SPECIMENOrdering Facility: [facility] Address: [address] [place] [address] Performed By: #### 2 4356-8 ####[facility]ORATORYCLIA [id number] [address] [place] WBC LM.HPF (Urine sed) [#/Area] 0-5 /HPF Normal 0-5 /HPF [facility] Comment on above: Order Comment: Speci men Type: URINE SPECIMENOrdering Facility: [facility] Address: [address] [place] [address] Performed By: #### 2 4356-8 ####[facility]ORATORYCLIA [id number] [address] [place] Vancomycin random [Mass/Vol] on 07-19-2021 Vancomycin [Mass/Vol] 13.9 ug/mL Normal 10.0-20.0 [facility] Comment on above: Order Comment: Speci men Type: BLOOD SPECIMENOrdering Facility: [facility] Address: [address] [place] [address] Result Comment: Refe rence ranges and high/low indicator flags are provided as general guidelines only. The treating physician must determine appropriate target levels/dosing based on the specific clinical situation. Performed By: #### 4 091-5 ####[facility]ORATORYCLIA [id number] [address] aPTT PPPon 07-19-2021 aPTT Coag (PPP) [Time] 53.9 s High 23.0-32.4 [facility] Comment on above: Order Comment: Speci men Type: BLOOD SPECIMENOrdering Facility: [facility] Address: [address] [place] [address] Performed By: #### 1 4979-9 ####[facility]ORATORYCLIA [id number] [address] OF [facility] Basic metabolic 2000 panelon 07-18-2021 Anion gap [Moles/Vol] 6 mmol/L Low 9-18 [facility] Comment on above: Order Comment: Speci men Type: BLOOD SPECIMENOrdering Facility: [facility] Address: [address] [place] [address] Performed By: #### 2 4321-2, , 2776- ####[facility]ORATORYCLIA [id number] [place] [address] [place] Calcium [Mass/Vol] 9.4 mg/dL Normal 8.5-10.2 [facility] Comment on above: Order Comment: Speci men Type: BLOOD SPECIMENOrdering Facility: [facility] Address: [address] [place] [address] Performed By: #### 2 4321-2, , 2776- ####[facility]ORATORYCLIA [id number] [address] [place] Chloride [Moles/Vol] 103 mmol/L Normal 97-105 [facility] Comment on above: Order Comment: Speci men Type: BLOOD SPECIMENOrdering Facility: [facility] Address: [address] [place] [address] Performed By: #### 2 4321-2, , 2776 ####[facility] HE[facility] SERVICESCLIA [id number] [place] [id number] [place] CO2 [Moles/Vol] 34 mmol/L High 22-30 [facility] Comment on above: Order Comment: Speci men Type: BLOOD SPECIMENOrdering Facility: [facility] Address: [address] [place] [address] Performed By: #### 2 4321-2, , 2776-05 ####[facility] HE[facility] SERVICESCLIA [id number] [place] [id number] [facility] Creatinine [Mass/Vol] 0.75 mg/dL Normal 0.73-1.22 [facility] Comment on above: Order Comment: Speci men Type: BLOOD SPECIMENOrdering Facility: [facility] Address: [address] [place] [address] Performed By: #### 2 4321-2, , 2776-05 ####[facility] [id number] [address] ESTIMATED GLOMERULAR FILTRATION RATE 98 mL/min/1.73m??? Normal >=60 [facility] Comment on above: Order Comment: Speci men Type: BLOOD SPECIMENOrdering Facility: [facility] Address: [address] [place] [address] Result Comment: Luzmaria mated Glomerular Filtration Rate [...] Performed By: #### 2 4321-2, , 2776-05 ####[facility]ORATORYCLIA [id number] [place] [id number] [place] Glucose [Mass/Vol] 125 mg/dL High 74-99 [facility] Comment on above: Order Comment: Speci men Type: BLOOD SPECIMENOrdering Facility: [facility] Address: [address] [place] [address] Result Comment: The [place] [employer] (ADA) provides guidance for cutoff [...] Standards of Medical Care in Diabetes 2016, [place] [employer]. Diabetes Care. 2016.39(Suppl 1). Performed By: #### 2 4321-2, , 2776-05 ####[facility]ORATORYCLIA [id number] [place] [address] [place] Potassium [Moles/Vol] 4.4 mmol/L Normal 3.7-5.1 [facility] Comment on above: Order Comment: Speci men Type: BLOOD SPECIMENOrdering Facility: [facility] Address: [address] [place], [place] [address] Performed By: #### 2 4321-2, , 2776-05 ####[facility]ORATORYCLIA [id number] [place] [address] [place] Sodium [Moles/Vol] 143 mmol/L Normal 136-144 [facility] Comment on above: Order Comment: Speci men Type: BLOOD SPECIMENOrdering Facility: [facility] Address: [address] Performed By: #### 2 4321-2, , 2776-05 ####[facility]ORATORYCLIA [id number] [place] [address] [place] Urea nitrogen [Mass/Vol] 33 mg/dL High 9-24 [facility] Comment on above: Order Comment: Speci men Type: BLOOD SPECIMENOrdering Facility: [facility] Address: [address] [place] [address] Performed By: #### 2 4321-2, 36281-1, 2777-1 ####[facility]ATORYCLIA [id number] [address] CASE MANAGEMon 07-18-2021 CASE MANAGEM Normal [facility] CBC W Auto Differential pane l (Bld)on 07-18-2021 Basophils (Bld) [#/Vol] 0.05 10*3/uL Normal <0.11 [facility] Comment on above: Order Comment: Speci men Type: BLOOD SPECIMENOrdering Facility: [facility] Address: [address] [place] [address] Performed By: #### 5 7021-8 ####[facility]ORATORYCLIA [id number] [address] STATES [facility] Basophils/100 WBC (Bld) 0.5 % Normal [facility] Comment on above: Order Comment: Speci men Type: BLOOD SPECIMENOrdering Facility: [facility] Address: [address] [place] [address] Performed By: #### 5 7021-8 ####[facility]ORATORYCLIA [id number] [address] [place] Differential cell count method Nom (Bld) Auto Normal [facility] Comment on above: Order Comment: Speci men Type: BLOOD SPECIMENOrdering Facility: [facility] Address: [address] [place] [address] Performed By: #### 5 7021-8 ####[facility]ATORYCLIA [id number] [address] [place] Eosinophils (Bld) [#/Vol] 0.44 10*3/uL Normal <0.46 [facility] Comment on above: Order Comment: Speci men Type: BLOOD SPECIMENOrdering Facility: [facility] Address: [facility] [place] [address] Performed By: #### 5 7021-8 ####[facility]ORYCLIA [id number] [address] Eosinophils/100 WBC (Bld) 4.3 % Normal [facility] Comment on above: Order Comment: Speci men Type: BLOOD SPECIMENOrdering Facility: [facility] Address: [address] [place] [address] Performed By: #### 5 7021-8 ####[facility]ORATORYCLIA [id number] [address] Erythrocyte distribution width (RBC) [Ratio] 16.6 % High 11.5-15.0 [facility] Comment on above: Order Comment: Speci men Type: BLOOD SPECIMENOrdering Facility: [facility] Address: [address] [place] [address] Performed By: #### 5 7021-8 ####[facility]ORATORYCLIA [id number] [address] Hematocrit (Bld) [Volume fraction] 32.2 % Low 39.0-51.0 [facility] Comment on above: Order Comment: Speci men Type: BLOOD SPECIMENOrdering Facility: [facility] Address: [address] [place] [address] Performed By: #### 5 7021-8 ####[facility]ORATORYCLIA [id number] [address] [place] Hemoglobin (Bld) [Mass/Vol] 9.5 g/dL Low 13.0-17.0 [facility] Comment on above: Order Comment: Speci men Type: BLOOD SPECIMENOrdering Facility: [facility] Address: [address] [place] [address] Performed By: #### 5 7021-8 ####[facility]ORATORYCLIA [id number] [address] IMMATURE GRAN % 0.4 % Normal [facility] Comment on above: Order Comment: Speci men Type: BLOOD SPECIMENOrdering Facility: [facility] Address: [address] [place] [address] Performed By: #### 5 7021-8 ####[facility]ORATORYCLIA [id number] [address] STATES [facility] IMMATURE GRAN ABS 0.04 k/uL Normal <0.10 [facility] Comment on above: Order Comment: Speci men Type: BLOOD SPECIMENOrdering Facility: [facility] Address: [address] [place] [address] Performed By: #### 5 7021-8 ####[facility]ORATORYCLIA [id number] [address] Lymphocytes (Bld) [#/Vol] 1.71 10*3/uL Normal 1.00-4.00 [facility] Comment on above: Order Comment: Speci men Type: BLOOD SPECIMENOrdering Facility: [facility] Address: [address] [place] [address] Performed By: #### 5 7021-8 ####[facility]ORATORYCLIA [id number] [address] Lymphocytes/100 WBC (Bld) 16.9 % Normal [facility] Comment on above: Order Comment: Speci men Type: BLOOD SPECIMENOrdering Facility: [facility] Address: [address] [place] [address] Performed By: #### 5 7021-8 ####[facility] LABORATORYCLIA [id number] [address] MCH (RBC) [Entitic mass] 27.9 pg Normal 26.0-34.0 [facility] Comment on above: Order Comment: Speci men Type: BLOOD SPECIMENOrdering Facility: [facility] Address: [address] [place] [address] Performed By: #### 5 7021-8 ####[facility]ORATORYCLIA [id number] [address] [place] MCHC (RBC) [Mass/Vol] 29.5 g/dL Low 30.5-36.0 [facility] Comment on above: Order Comment: Speci men Type: BLOOD SPECIMENOrdering Facility: [facility] Address: [address] [place] [address] Performed By: #### 5 7021-8 ####[facility] LABORATORYCLIA [id number] [address] [place] MCV (RBC) [Entitic vol] 94.7 fL Normal 80.0-100.0 [facility] Comment on above: Order Comment: Speci men Type: BLOOD SPECIMENOrdering Facility: [facility] Address: [address] [place] [address] Performed By: #### 5 7021-8 ####[facility] LABORATORYCLIA [id number] [address] [place] Monocytes (Bld) [#/Vol] 0.69 10*3/uL Normal <0.87 [facility] Comment on above: Order Comment: Speci men Type: BLOOD SPECIMENOrdering Facility: [facility] Address: [address] [place] [address] Performed By: #### 5 7021-8 ####[facility] LABORATORYCLIA [id number] [address] Monocytes/100 WBC (Bld) 6.8 % Normal [facility] Comment on above: Order Comment: Speci men Type: BLOOD SPECIMENOrdering Facility: [facility] Address: [address] [place] [address] Performed By: #### 5 7021-8 ####[facility] LABORATORYCLIA [id number] [address] [place] Neutrophils (Bld) [#/Vol] 7.19 10*3/uL Normal 1.45-7.50 [facility] Comment on above: Order Comment: Speci men Type: BLOOD SPECIMENOrdering Facility: [facility] Address: [address] [place] [address] Performed By: #### 5 7021-8 ####[facility] LABORATORYCLIA [id number] [address] Neutrophils/100 WBC (Bld) 71.1 % Normal [facility] Comment on above: Order Comment: Speci men Type: BLOOD SPECIMENOrdering Facility: [facility] Address: [address] [place] [address] Performed By: #### 5 7021-8 ####[facility] LABORATORYCLIA [id number] [address] [place] Nucleated RBC (Bld) [#/Vol] 10*3/uL Normal <0.01 [facility] Comment on above: Order Comment: Speci men Type: BLOOD SPECIMENOrdering Facility: [facility] Address: [address] [place] [address] Performed By: #### 5 7021-8 ####[facility] LABORATORYCLIA [id number] [address] Nucleated RBC/100 WBC (Bld) [Ratio] 0.0 /100 WBC Normal [facility] Comment on above: Order Comment: Speci men Type: BLOOD SPECIMENOrdering Facility: [facility] Address: [address] [place] [address] Performed By: #### 5 7021-8 ####[facility] LABORATORYCLIA [id number] [address] [place] Platelet mean volume (Bld) [Entitic vol] 10.3 fL Normal 9.0-12.7 [facility] Comment on above: Order Comment: Speci men Type: BLOOD SPECIMENOrdering Facility: [facility] Address: [address] Performed By: #### 5 7021-8 ####[facility] LABORATORYCLIA [id number] [address] [place] Platelets (Bld) [#/Vol] 403 10*3/uL High 150-400 [facility] Comment on above: Order Comment: Speci men Type: BLOOD SPECIMENOrdering Facility: [facility] Address: [address] [place] [address] Performed By: #### 5 7021-8 ####[facility] LABORATORYCLIA [id number] [place] [address] [place] RBC (Bld) [#/Vol] 3.40 10*6/uL Low 4.20-6.00 [facility] Comment on above: Order Comment: Speci men Type: BLOOD SPECIMENOrdering Facility: [facility] Address: [address] [place] [address] Performed By: #### 5 7021-8 ####[facility] LABORATORYCLIA [id number] [address] [place] WBC (Bld) [#/Vol] 10.12 10*3/uL Normal 3.70-11.00 [facility] Comment on above: Order Comment: Speci men Type: BLOOD SPECIMENOrdering Facility: [facility] Address: [address] [place] [address] Performed By: #### 5 7021-8 ####[facility] LABORATORYCLIA [id number] [address] [place] Magnesium SerPl-mCncon 07-18 Magnesium [Mass/Vol] 2.4 mg/dL High 1.7-2.3 [facility] Comment on above: Order Comment: Speci men Type: BLOOD SPECIMENOrdering Facility: [facility] Address: [address] [place] [address] Performed By: #### 2 4321-2, 51185-4, 2777-1 ####[facility] LABORATORYCLIA [id number] [address] [place] NURSING PROGon 07-18-2021 NURSING PROG Normal [facility] NURSING PROG Normal [facility] Phosphate SerPl-mCncon 07-18 Phosphate [Mass/Vol] 3.9 mg/dL Normal 2.7-4.8 [facility] Comment on above: Order Comment: Speci men Type: BLOOD SPECIMENOrdering Facility: [facility] Address: [address] [place] [address] Performed By: #### 2 4321-2, 30989-7, 2777-1 ####[facility] LABORATORYCLIA [id number] [address] OF [facility] THERAPY NTon 07-18-2021 THERAPY NT Normal [facility] aPTT PPPon 07-18-2021 aPTT Coag (PPP) [Time] 52.3 s High 23.0-32.4 [facility] Comment on above: Order Comment: Speci men Type: BLOOD SPECIMENOrdering Facility: [facility] Address: [address] [place] [address] Performed By: #### 1 4979-9 ####[facility] LABORATORYCLIA [id number] [address] CBC W Auto Differential pane l (Bld)on 07-17-2021 Basophils (Bld) [#/Vol] 0.05 10*3/uL Normal <0.11 [facility] Comment on above: Order Comment: Speci men Type: BLOOD SPECIMENOrdering Facility: [facility] Address: [address] [place] [address] Performed By: #### 5 7021-8 ####[facility] LABORATORYCLIA [id number] [address] Basophils/100 WBC (Bld) 0.5 % Normal [facility] Comment on above: Order Comment: Speci men Type: BLOOD SPECIMENOrdering Facility: [facility] Address: [address] [place] [address] Performed By: #### 5 7021-8 ####[facility] LABORATORYCLIA [id number] [address] Differential cell count method Nom (Bld) Auto Normal [facility] Comment on above: Order Comment: Speci men Type: BLOOD SPECIMENOrdering Facility: [facility] Address: [address] [place] [address] Performed By: #### 5 7021-8 ####[facility]ORATORYCLIA [id number] [address] [place] Eosinophils (Bld) [#/Vol] 0.32 10*3/uL Normal <0.46 [facility] Comment on above: Order Comment: Speci men Type: BLOOD SPECIMENOrdering Facility: [facility] Address: [address] [place] [address] Performed By: #### 5 7021-8 ####[facility] LABORATORYCLIA [id number] [address] Eosinophils/100 WBC (Bld) 3.4 % Normal [facility] Comment on above: Order Comment: Speci men Type: BLOOD SPECIMENOrdering Facility: [facility] Address: [address] [place] [address] Performed By: #### 5 7021-8 ####[facility] LABORATORYCLIA [id number] [address] Erythrocyte distribution width (RBC) [Ratio] 16.6 % High 11.5-15.0 [facility] Comment on above: Order Comment: Speci men Type: BLOOD SPECIMENOrdering Facility: [facility] Address: [address] [place] [address] Performed By: #### 5 7021-8 ####[facility] LABORATORYCLIA [id number] [address] [place] Hematocrit (Bld) [Volume fraction] 30.7 % Low 39.0-51.0 [facility] Comment on above: Order Comment: Speci men Type: BLOOD SPECIMENOrdering Facility: [facility] Address: [address] [place] [address] Performed By: #### 5 7021-8 ####[facility]ORATORYCLIA [id number] [address] Hemoglobin (Bld) [Mass/Vol] 9.0 g/dL Low 13.0-17.0 [facility] Comment on above: Order Comment: Speci men Type: BLOOD SPECIMENOrdering Facility: [facility] Address: [address] [place] [address] Performed By: #### 5 7021-8 ####[facility] LABORATORYCLIA [id number] [address] IMMATURE GRAN % 0.6 % Normal [facility] Comment on above: Order Comment: Speci men Type: BLOOD SPECIMENOrdering Facility: [facility] Address: [address] [place] [address] Performed By: #### 5 7021-8 ####[facility] LABORATORYCLIA [id number] [address] IMMATURE GRAN ABS 0.06 k/uL Normal <0.10 [facility] Comment on above: Order Comment: Speci men Type: BLOOD SPECIMENOrdering Facility: [facility] Address: [address] [place] [address] Performed By: #### 5 7021-8 ####[facility]ORATORYCLIA [id number] [address] Lymphocytes (Bld) [#/Vol] 1.61 10*3/uL Normal 1.00-4.00 [facility] Comment on above: Order Comment: Speci men Type: BLOOD SPECIMENOrdering Facility: [facility] Address: [address] [place] [address] Performed By: #### 5 7021-8 ####[facility]ORATORYCLIA [id number] [address] Lymphocytes/100 WBC (Bld) 17.3 % Normal [facility] Comment on above: Order Comment: Speci men Type: BLOOD SPECIMENOrdering Facility: [facility] Address: [address] [place] [address] Performed By: #### 5 7021-8 ####[facility]ORATORYCLIA [id number] [address] [place] MCH (RBC) [Entitic mass] 26.9 pg Normal 26.0-34.0 [facility] Comment on above: Order Comment: Speci men Type: BLOOD SPECIMENOrdering Facility: [facility] Address: [address] [place] [address] Performed By: #### 5 7021-8 ####[facility]ORATORYCLIA [id number] [address] MCHC (RBC) [Mass/Vol] 29.3 g/dL Low 30.5-36.0 [facility] Comment on above: Order Comment: Speci men Type: BLOOD SPECIMENOrdering Facility: [facility] Address: [address] [place] [address] Performed By: #### 5 7021-8 ####[facility]ORATORYCLIA [id number] [address] MCV (RBC) [Entitic vol] 91.9 fL Normal 80.0-100.0 [facility] Comment on above: Order Comment: Speci men Type: BLOOD SPECIMENOrdering Facility: [facility] Address: [address] [place] [address] Performed By: #### 5 7021-8 ####[facility]ORATORYCLIA [id number] [address] Monocytes (Bld) [#/Vol] 0.61 10*3/uL Normal <0.87 [facility] Comment on above: Order Comment: Speci men Type: BLOOD SPECIMENOrdering Facility: [facility] Address: [address] [place] [address] Performed By: #### 5 7021-8 ####[facility]ORATORYCLIA [id number] [address] Monocytes/100 WBC (Bld) 6.6 % Normal [facility] Comment on above: Order Comment: Speci men Type: BLOOD SPECIMENOrdering Facility: [facility] Address: [address] [place] [address] Performed By: #### 5 7021-8 ####[facility] LABORATORYCLIA [id number] [place] [address] [place] Neutrophils (Bld) [#/Vol] 6.64 10*3/uL Normal 1.45-7.50 [facility] Comment on above: Order Comment: Speci men Type: BLOOD SPECIMENOrdering Facility: [facility] Address: [address] [place] [address] Performed By: #### 5 7021-8 ####[facility] LABORATORYCLIA [id number] [address] [place] Neutrophils/100 WBC (Bld) 71.6 % Normal [facility] Comment on above: Order Comment: Speci men Type: BLOOD SPECIMENOrdering Facility: [facility] Address: [address] [place] [address] Performed By: #### 5 7021-8 ####[facility] LABORATORYCLIA [id number] [address] [place] Nucleated RBC (Bld) [#/Vol] 10*3/uL Normal <0.01 [facility] Comment on above: Order Comment: Speci men Type: BLOOD SPECIMENOrdering Facility: [facility] Address: [address] [place] [address] Performed By: #### 5 7021-8 ####[facility] LABORATORYCLIA [id number] [address] [place] Nucleated RBC/100 WBC (Bld) [Ratio] 0.0 /100 WBC Normal [facility] Comment on above: Order Comment: Speci men Type: BLOOD SPECIMENOrdering Facility: [facility] Address: [address] [place] [address] Performed By: #### 5 7021-8 ####[facility] LABORATORYCLIA [id number] [address] [place] Platelet mean volume (Bld) [Entitic vol] 10.1 fL Normal 9.0-12.7 [facility] Comment on above: Order Comment: Speci men Type: BLOOD SPECIMENOrdering Facility: [facility] Address: [address] [place] [address] Performed By: #### 5 7021-8 ####[facility] LABORATORYCLIA [id number] [address] Platelets (Bld) [#/Vol] 387 10*3/uL Normal 150-400 [facility] Comment on above: Order Comment: Speci men Type: BLOOD SPECIMENOrdering Facility: [facility] Address: [address] [place] [address] Performed By: #### 5 7021-8 ####[facility] LABORATORYCLIA [id number] [address] [place] RBC (Bld) [#/Vol] 3.34 10*6/uL Low 4.20-6.00 [facility] Comment on above: Order Comment: Speci men Type: BLOOD SPECIMENOrdering Facility: [facility] Address: [address] [place] [address] Performed By: #### 5 7021-8 ####[facility] LABORATORYCLIA [id number] [address] OF [facility] WBC (Bld) [#/Vol] 9.29 10*3/uL Normal 3.70-11.00 [facility] Comment on above: Order Comment: Speci men Type: BLOOD SPECIMENOrdering Facility: [facility] Address: [address] [place] [address] Performed By: #### 5 7021-8 ####[facility] LABORATORYCLIA [id number] [address] OF [facility] CONSULT PROGon 07-17-2021 CONSULT PROG Normal [facility] Magnesium SerPl-mCncon 07-17 Magnesium [Mass/Vol] 2.3 mg/dL Normal 1.7-2.3 [facility] Comment on above: Order Comment: Speci men Type: BLOOD SPECIMENOrdering Facility: [facility] Address: [address] [place] [address] Performed By: #### 2 777-1, 48494-6 ####[facility]ORATORYCLIA [id number] [place] [address] [place] NURSING PROGon 07-17-2021 NURSING PROG Normal [facility] NURSING PROG Normal [facility] NURSING PROG Normal [facility] Phosphate SerPl-mCncon 07-17 Phosphate [Mass/Vol] 3.6 mg/dL Normal 2.7-4.8 [facility] Comment on above: Order Comment: Speci men Type: BLOOD SPECIMENOrdering Facility: [facility] Address: [address] [place] [address] Performed By: #### 2 777-1, 99765-0 ####[facility] LABORATORYCLIA [id number] [address] [place] aPTT PPPon 07-17-2021 aPTT Coag (PPP) [Time] 57.2 s High 23.0-32.4 [facility] Comment on above: Order Comment: Speci men Type: BLOOD SPECIMENOrdering Facility: [facility] Address: [address] [place] [address] Performed By: #### 1 4979-9 ####[facility] LABORATORYCLIA [id number] [place] [address] [place] Basic metabolic 2000 panelon 07-16-2021 Anion gap [Moles/Vol] 5 mmol/L Low 9-18 [facility] Comment on above: Order Comment: Speci men Type: BLOOD SPECIMENOrdering Facility: [facility] Address: [address] [place] [address] Performed By: #### 2 777-1, 91389-5, ####[facility]ORATORYCLIA [id number] [place] [address] [place] Calcium [Mass/Vol] 9.1 mg/dL Normal 8.5-10.2 [facility] Comment on above: Order Comment: Speci men Type: BLOOD SPECIMENOrdering Facility: [facility] Address: [address] [place] [address] Performed By: #### 2 777-1, 40169-0, ####[facility] LABORATORYCLIA [id number] [place] [address] [place] Chloride [Moles/Vol] 101 mmol/L Normal 97-105 [facility] Comment on above: Order Comment: Speci men Type: BLOOD SPECIMENOrdering Facility: [facility] Address: [address] [place] [address] Performed By: #### 2 777-1, 57318-1, ####[facility] LABORATORYCLIA [id number] [place] [id number] [place] CO2 [Moles/Vol] 35 mmol/L High 22-30 [facility] Comment on above: Order Comment: Speci men Type: BLOOD SPECIMENOrdering Facility: [facility] Address: [address] [place] [address] Performed By: #### 2 777-1, , ####[facility]ORATORYCLIA [id number] [address] OF [facility] Creatinine [Mass/Vol] 0.73 mg/dL Normal 0.73-1.22 [facility] Comment on above: Order Comment: Speci men Type: BLOOD SPECIMENOrdering Facility: [facility] Address: [address] [place] [address] Performed By: #### 2 777-1, 45857-1, ####[facility]ORATORYCLIA [id number] [address] ESTIMATED GLOMERULAR FILTRATION RATE 98 mL/min/1.73m??? Normal >=60 [facility] Comment on above: Order Comment: Speci men Type: BLOOD SPECIMENOrdering Facility: [facility] Address: [address] [place] [address] Result Comment: Luzmaria mated Glomerular Filtration Rate [...] actual GFR. Performed By: #### 2 777-1, 90963-4, ####[facility]ORATORYCLIA [id number] [place] [address] [place] Glucose [Mass/Vol] 133 mg/dL High 74-99 [facility] Comment on above: Order Comment: Shira feldman Type: BLOOD SPECIMENOrdering Facility: [facility] Address: [address] [place], [place] [id number] Result Comment: The [place] [employer] (ADA) provides guidance for cutoff [...] Standards of Medical Care in Diabetes 2016, [place] [employer]. Diabetes Care. 2016.39(Suppl 1). Performed By: #### 2 777-1, , ####[facility]ORATORYCLIA [id number] [place] [address] [place] Potassium [Moles/Vol] 4.2 mmol/L Normal 3.7-5.1 [facility] Comment on above: Order Comment: Shira feldman Type: BLOOD SPECIMENOrdering Facility: [facility] Address: [address] [place] [address] Performed By: #### 2 777-1, 66129-8, ####[facility]ORATORYCLIA [id number] [place] [address] [place] Sodium [Moles/Vol] 141 mmol/L Normal 136-144 [facility] Comment on above: Order Comment: Speci men Type: BLOOD SPECIMENOrdering Facility: [facility] Address: [address] [place] [address] Performed By: #### 2 777-1, 00517-8, ####[facility]ORATORYCLIA [id number] [address] STATES [facility] Urea nitrogen [Mass/Vol] 21 mg/dL Normal 9-24 [facility] Comment on above: Order Comment: Speci men Type: BLOOD SPECIMENOrdering Facility: [facility] Address: [address] [place] [address] Performed By: #### 2 777-1, 81960-2, ####[facility]ORATORYCLIA [id number] [address] [place] CBC W Auto Differential pane l (Bld)on 07-16-2021 Basophils (Bld) [#/Vol] 0.06 10*3/uL Normal <0.11 [facility] Comment on above: Order Comment: Speci men Type: BLOOD SPECIMENOrdering Facility: [facility] Address: [address] [place] [address] Performed By: #### 5 7021-8 ####[facility] LABORATORYCLIA [id number] [address] [place] Basophils/100 WBC (Bld) 0.7 % Normal [facility] Comment on above: Order Comment: Speci men Type: BLOOD SPECIMENOrdering Facility: [facility] Address: [address] [place] [address] Performed By: #### 5 7021-8 ####[facility]ORATORYCLIA [id number] [address] Differential cell count method Nom (Bld) Auto Normal [facility] Comment on above: Order Comment: Speci men Type: BLOOD SPECIMENOrdering Facility: [facility] Address: [address] [place] [address] Performed By: #### 5 7021-8 ####[facility]ORATORYCLIA [id number] [address] [place] Eosinophils (Bld) [#/Vol] 0.35 10*3/uL Normal <0.46 [facility] Comment on above: Order Comment: Speci men Type: BLOOD SPECIMENOrdering Facility: [facility] Address: [address] [place] [address] Performed By: #### 5 7021-8 ####[facility]ORATORYCLIA [id number] [address] Eosinophils/100 WBC (Bld) 3.9 % Normal [facility] Comment on above: Order Comment: Speci men Type: BLOOD SPECIMENOrdering Facility: [facility] Address: [address] [place] [address] Performed By: #### 5 7021-8 ####[facility]ORATORYCLIA [id number] [address] Erythrocyte distribution width (RBC) [Ratio] 16.5 % High 11.5-15.0 [facility] Comment on above: Order Comment: Speci men Type: BLOOD SPECIMENOrdering Facility: [facility] Address: [address] [place] [address] Performed By: #### 5 7021-8 ####[facility] LABORATORYCLIA [id number] [address] [place] Hematocrit (Bld) [Volume fraction] 30.9 % Low 39.0-51.0 [facility] Comment on above: Order Comment: Speci men Type: BLOOD SPECIMENOrdering Facility: [facility] Address: [address] [place] [address] Performed By: #### 5 7021-8 ####[facility] LABORATORYCLIA [id number] [address] Hemoglobin (Bld) [Mass/Vol] 9.1 g/dL Low 13.0-17.0 [facility] Comment on above: Order Comment: Speci men Type: BLOOD SPECIMENOrdering Facility: [facility] Address: [address] [place] [address] Performed By: #### 5 7021-8 ####[facility]ORATORYCLIA [id number] [address] IMMATURE GRAN % 0.4 % Normal [facility] Comment on above: Order Comment: Speci men Type: BLOOD SPECIMENOrdering Facility: [facility] Address: [address] [place] [address] Performed By: #### 5 7021-8 ####[facility] LABORATORYCLIA [id number] [address] IMMATURE GRAN ABS 0.04 k/uL Normal <0.10 [facility] Comment on above: Order Comment: Speci men Type: BLOOD SPECIMENOrdering Facility: [facility] Address: [address] [place] [address] Performed By: #### 5 7021-8 ####[facility]ORATORYCLIA [id number] [address] Lymphocytes (Bld) [#/Vol] 1.35 10*3/uL Normal 1.00-4.00 [facility] Comment on above: Order Comment: Speci men Type: BLOOD SPECIMENOrdering Facility: [facility] Address: [address] [place] [address] Performed By: #### 5 7021-8 ####[facility] LABORATORYCLIA [id number] [address] Lymphocytes/100 WBC (Bld) 15.0 % Normal [facility] Comment on above: Order Comment: Speci men Type: BLOOD SPECIMENOrdering Facility: [facility] Address: [address] [place] [address] Performed By: #### 5 7021-8 ####[facility] LABORATORYCLIA [id number] [address] [facility] [place] [facility] (RBC) [Entitic mass] 27.1 pg Normal 26.0-34.0 [facility] Comment on above: Order Comment: Speci men Type: BLOOD SPECIMENOrdering Facility: [facility] Address: [address] [place] [address] Performed By: #### 5 7021-8 ####[facility] LABORATORYCLIA [id number] [address] MCHC (RBC) [Mass/Vol] 29.4 g/dL Low 30.5-36.0 [facility] Comment on above: Order Comment: Speci men Type: BLOOD SPECIMENOrdering Facility: [facility] Address: [address] [place] [address] Performed By: #### 5 7021-8 ####[facility] LABORATORYCLIA [id number] [address] MCV (RBC) [Entitic vol] 92.0 fL Normal 80.0-100.0 [facility] Comment on above: Order Comment: Speci men Type: BLOOD SPECIMENOrdering Facility: [facility] Address: [address] [place] [address] Performed By: #### 5 7021-8 ####[facility] LABORATORYCLIA [id number] [address] Monocytes (Bld) [#/Vol] 0.53 10*3/uL Normal <0.87 [facility] Comment on above: Order Comment: Speci men Type: BLOOD SPECIMENOrdering Facility: [facility] Address: [address] [place] [address] Performed By: #### 5 7021-8 ####[facility] LABORATORYCLIA [id number] [address] Monocytes/100 WBC (Bld) 5.9 % Normal [facility] Comment on above: Order Comment: Speci men Type: BLOOD SPECIMENOrdering Facility: [facility] Address: [address] [place] [address] Performed By: #### 5 7021-8 ####[facility] LABORATORYCLIA [id number] [place] [address] [place] Neutrophils (Bld) [#/Vol] 6.67 10*3/uL Normal 1.45-7.50 [facility] Comment on above: Order Comment: Speci men Type: BLOOD SPECIMENOrdering Facility: [facility] Address: [address] [place] [address] Performed By: #### 5 7021-8 ####[facility] LABORATORYCLIA [id number] [address] [place] Neutrophils/100 WBC (Bld) 74.1 % Normal [facility] Comment on above: Order Comment: Speci men Type: BLOOD SPECIMENOrdering Facility: [facility] Address: [address] [place] [address] Performed By: #### 5 7021-8 ####[facility] LABORATORYCLIA [id number] [address] [place] Nucleated RBC (Bld) [#/Vol] 10*3/uL Normal <0.01 [facility] Comment on above: Order Comment: Speci men Type: BLOOD SPECIMENOrdering Facility: [facility] Address: [address] [place] [address] Performed By: #### 5 7021-8 ####[facility] LABORATORYCLIA [id number] [address] [place] Nucleated RBC/100 WBC (Bld) [Ratio] 0.0 /100 WBC Normal [facility] Comment on above: Order Comment: Speci men Type: BLOOD SPECIMENOrdering Facility: [facility] Address: [address] [place] [address] Performed By: #### 5 7021-8 ####[facility] LABORATORYCLIA [id number] [address] [place] Platelet mean volume (Bld) [Entitic vol] 9.9 fL Normal 9.0-12.7 [facility] Comment on above: Order Comment: Speci men Type: BLOOD SPECIMENOrdering Facility: [facility] Address: [address] [place] [address] Performed By: #### 5 7021-8 ####[facility] LABORATORYCLIA [id number] [address] STATES OF [facility] Platelets (Bld) [#/Vol] 391 10*3/uL Normal 150-400 [facility] Comment on above: Order Comment: Speci men Type: BLOOD SPECIMENOrdering Facility: [facility] Address: [address] [place] [address] Performed By: #### 5 7021-8 ####[facility] LABORATORYCLIA [id number] [place] [address] [place] RBC (Bld) [#/Vol] 3.36 10*6/uL Low 4.20-6.00 [facility] Comment on above: Order Comment: Speci men Type: BLOOD SPECIMENOrdering Facility: [facility] Address: [address] [place] [address] Performed By: #### 5 7021-8 ####[facility] LABORATORYCLIA [id number] [address] STATES OF [facility] WBC (Bld) [#/Vol] 9.00 10*3/uL Normal 3.70-11.00 [facility] Comment on above: Order Comment: Speci men Type: BLOOD SPECIMENOrdering Facility: [facility] Address: [address] [place] [address] Performed By: #### 5 7021-8 ####[facility] LABORATORYCLIA [id number] [address] CONSULT PROGon 07-16-2021 CONSULT PROG Normal [facility] CONSULT PROG Normal [facility] Magnesium SerPl-mCncon 07-16 Magnesium [Mass/Vol] 2.3 mg/dL Normal 1.7-2.3 [facility] Comment on above: Order Comment: Speci men Type: BLOOD SPECIMENOrdering Facility: [facility] Address: [address] [place] [address] Performed By: #### 2 777-1, 59326-0, ####[facility] LABORATORYCLIA [id number] [address] [place] NURSING PROGon 07-16-2021 NURSING PROG Normal [facility] Phosphate SerPl-mCncon 07-16 Phosphate [Mass/Vol] 3.6 mg/dL Normal 2.7-4.8 [facility] Comment on above: Order Comment: Speci men Type: BLOOD SPECIMENOrdering Facility: [facility] Address: [address] [place] [address] Performed By: #### 2 777-1, 01938-6, ####[facility] LABORATORYCLIA [id number] [address] Vancomycin random [Mass/Vol] on 07-16-2021 Vancomycin [Mass/Vol] 16.9 ug/mL Normal 10.0-20.0 [facility] Comment on above: Order Comment: Speci men Type: BLOOD SPECIMENOrdering Facility: [facility] Address: [address] [place] [address] Result Comment: Refe rence ranges and high/low indicator flags are provided as general guidelines only. The treating physician must determine appropriate target levels/dosing based on the specific clinical situation. Performed By: #### 4 091-5 ####[facility] LABORATORYCLIA [id number] [address] aPTT PPPon 07-16-2021 aPTT Coag (PPP) [Time] 57.2 s High 23.0-32.4 [facility] Comment on above: Order Comment: Speci [facility] Type: BLOOD SPECIMENOrdering Facility: [facility] Address: [address] [place] [address] Performed By: #### 1 4979-9 ####[facility] LABORATORYCLIA [id number] [place] [address] [place] ALLIED HEALTHon 07-15-2021 ALLIED HEALTH Normal [facility] Basic metabolic 2000 panelon 07-15-2021 Anion gap [Moles/Vol] 11 mmol/L Normal 9-18 [facility] Comment on above: Order Comment: Speci men Type: BLOOD SPECIMENOrdering Facility: [facility] Address: [address] [place] [address] Performed By: #### 2 4321-2, , 2776-05 ####[facility] LABORATORYCLIA [id number] [place] [address] [place] Calcium [Mass/Vol] 8.8 mg/dL Normal 8.5-10.2 [facility] Comment on above: Order Comment: Speci men Type: BLOOD SPECIMENOrdering Facility: [facility] Address: [address] [place] [address] Performed By: #### 2 4321-2, , 2776-05 ####[facility] LABORATORYCLIA [id number] [place] [address] [place] Chloride [Moles/Vol] 101 mmol/L Normal 97-105 [facility] Comment on above: Order Comment: Speci men Type: BLOOD SPECIMENOrdering Facility: [facility] Address: [address] [place] [address] Performed By: #### 2 4321-2, , 2776-05 ####[facility] LABORATORYCLIA [id number] [place] [address] [place] CO2 [Moles/Vol] 31 mmol/L High 22-30 [facility] Comment on above: Order Comment: Speci men Type: BLOOD SPECIMENOrdering Facility: [facility] Address: [address] [place] [address] Performed By: #### 2 4321-2, , 2776-05 ####[facility] LABORATORYCLIA [id number] [place] [address] [place] Creatinine [Mass/Vol] 0.76 mg/dL Normal 0.73-1.22 [facility] Comment on above: Order Comment: Speci men Type: BLOOD SPECIMENOrdering Facility: [facility] Address: [address] [address] Performed By: #### 2 4321-2, , 2776-05 ####[facility] HE[facility] SERVICESCLIA [id number] [address] [place] ESTIMATED GLOMERULAR FILTRATION RATE 97 mL/min/1.73m??? Normal >=60 [facility] Comment on above: Order Comment: Shira feldman Type: BLOOD SPECIMENOrdering Facility: [facility] Address: [address] [place] [address] Result Comment: Luzmaria mated Glomerular Filtration Rate [...] Performed By: #### 2 4321-2, , 2776-05 ####[facility] LABORATORYCLIA [id number] [place] [address] [place] Glucose [Mass/Vol] 115 mg/dL High 74-99 [facility] Comment on above: Order Comment: Shira feldman Type: BLOOD SPECIMENOrdering Facility: [facility] Address: [address] [place] [address] Result Comment: The [place] [employer] (ADA) provides guidance for cutoff [...] Standards of Medical Care in Diabetes 2016, [place] [employer]. Diabetes Care. 2016.39(Suppl 1). Performed By: #### 2 4321-2, , 2776-05 ####[facility] LABORATORYCLIA [id number] [place] [address] [place] Potassium [Moles/Vol] 4.0 mmol/L Normal 3.7-5.1 [facility] Comment on above: Order Comment: Speci men Type: BLOOD SPECIMENOrdering Facility: [facility] Address: [address] [place] [address] Performed By: #### 2 4321-2, , 2776-05 ####[facility] LABORATORYCLIA [id number] [address] [place] Sodium [Moles/Vol] 143 mmol/L Normal 136-144 [facility] Comment on above: Order Comment: Speci men Type: BLOOD SPECIMENOrdering Facility: [facility] Address: [address] [place] [address] Performed By: #### 2 4321-2, , 2776-05 ####[facility] SERVICESCLIA [id number] [address] STATES OF [facility] Urea nitrogen [Mass/Vol] 17 mg/dL Normal 9-24 [facility] Comment on above: Order Comment: Speci men Type: BLOOD SPECIMENOrdering Facility: [facility] Address: [address] [place] [address] Performed By: #### 2 4321-2, , 2776-05 ####[facility] LABORATORYCLIA [id number] [address] [place] CASE MANAGEMon 07-15-2021 CASE MANAGEM Normal [facility] CBC panel Auto (Bld)on 07-15 Erythrocyte distribution width (RBC) [Ratio] 16.4 % High 11.5-15.0 [facility] Comment on above: Order Comment: Speci men Type: BLOOD SPECIMENOrdering Facility: [facility] Address: [address] [place] [address] Performed By: #### 5 8410-2 ####[facility] LABORATORYCLIA [id number] [address] OF [facility] Hematocrit (Bld) [Volume fraction] 30.3 % Low 39.0-51.0 [facility] Comment on above: Order Comment: Speci men Type: BLOOD SPECIMENOrdering Facility: [facility] Address: [address] [place] [address] Performed By: #### 5 8410-2 ####[facility] LABORATORYCLIA [id number] [address] OF [facility] Hemoglobin (Bld) [Mass/Vol] 9.2 g/dL Low 13.0-17.0 [facility] Comment on above: Order Comment: Speci men Type: BLOOD SPECIMENOrdering Facility: [facility] Address: [address] [place] [address] Performed By: #### 5 8410-2 ####[facility] LABORATORYCLIA [id number] [address] MCH (RBC) [Entitic mass] 28.3 pg Normal 26.0-34.0 [facility] Comment on above: Order Comment: Speci men Type: BLOOD SPECIMENOrdering Facility: [facility] Address: [address] [place] [address] Performed By: #### 5 8410-2 ####[facility] LABORATORYCLIA [id number] [address] [place] MCHC (RBC) [Mass/Vol] 30.4 g/dL Low 30.5-36.0 [facility] Comment on above: Order Comment: Speci men Type: BLOOD SPECIMENOrdering Facility: [facility] Address: [address] [place] [address] Performed By: #### 5 8410-2 ####[facility] LABORATORYCLIA [id number] [address] OF [facility] MCV (RBC) [Entitic vol] 93.2 fL Normal 80.0-100.0 [facility] Comment on above: Order Comment: Speci men Type: BLOOD SPECIMENOrdering Facility: [facility] Address: [address] Performed By: #### 5 8410-2 ####[facility] LABORATORYCLIA [id number] [address] Nucleated RBC (Bld) [#/Vol] 10*3/uL Normal <0.01 [facility] Comment on above: Order Comment: Speci men Type: BLOOD SPECIMENOrdering Facility: [facility] Address: [address] [place] [address] Performed By: #### 5 8410-2 ####[facility] LABORATORYCLIA [id number] [address] Platelet mean volume (Bld) [Entitic vol] 9.9 fL Normal 9.0-12.7 [facility] Comment on above: Order Comment: Speci men Type: BLOOD SPECIMENOrdering Facility: [facility] Address: [address] [place] [address] Performed By: #### 5 8410-2 ####[facility] LABORATORYCLIA [id number] [address] Platelets (Bld) [#/Vol] 381 10*3/uL Normal 150-400 [facility] Comment on above: Order Comment: Speci men Type: BLOOD SPECIMENOrdering Facility: [facility] Address: [address] [place] [address] Performed By: #### 5 8410-2 ####[facility] LABORATORYCLIA [id number] [address] RBC (Bld) [#/Vol] 3.25 10*6/uL Low 4.20-6.00 [facility] Comment on above: Order Comment: Speci men Type: BLOOD SPECIMENOrdering Facility: [facility] Address: [address] [place] [address] Performed By: #### 5 8410-2 ####[facility] LABORATORYCLIA [id number] [address] WBC (Bld) [#/Vol] 8.80 10*3/uL Normal 3.70-11.00 [facility] Comment on above: Order Comment: Speci men Type: BLOOD SPECIMENOrdering Facility: [facility] Address: [address] [place] [address] Performed By: #### 5 8410-2 ####[facility] LABORATORYCLIA [id number] [address] Magnesium SerPl-mCncon 07-15 Magnesium [Mass/Vol] 2.2 mg/dL Normal 1.7-2.3 [facility] Comment on above: Order Comment: Speci men Type: BLOOD SPECIMENOrdering Facility: [facility] Address: [address] [place] [address] Performed By: #### 2 4321-2, 96085-6, 2777-1 ####[facility] LABORATORYCLIA [id number] [address] NURSING PROGon 07-15-2021 NURSING PROG Normal [facility] NURSING PROG Normal [facility] NURSING PROG Normal [facility] NUTRITIONon 07-15-2021 NUTRITION Normal [facility] Phosphate SerPl-mCncon 07-15 Phosphate [Mass/Vol] 3.4 mg/dL Normal 2.7-4.8 [facility] Comment on above: Order Comment: Speci men Type: BLOOD SPECIMENOrdering Facility: [facility] Address: [address] [place] [address] Performed By: #### 2 4321-2, 33206-1, 2777-1 ####[facility] LABORATORYCLIA [id number] [address] [place] THERAPY NTon 07-15-2021 THERAPY NT Normal [facility] US DVT UPPER LTon 07-15-2021 US DVT UPPER LT Normal [facility] XR CHEST 1V FRONTALon 2021 XR CHEST 1V FRONTAL Normal [facility] aPTT PPPon 07-15-2021 aPTT Coag (PPP) [Time] 59.9 s High 23.0-32.4 [facility] Comment on above: Order Comment: Speci men Type: BLOOD SPECIMENOrdering Facility: [facility] Address: [address] [place] [address] Performed By: #### 1 4979-9 ####[facility] LABORATORYCLIA [id number] [place] [address] [place] Basic metabolic 2000 panelon 07-14-2021 Anion gap [Moles/Vol] 9 mmol/L Normal 9-18 [facility] Comment on above: Order Comment: Speci men Type: BLOOD SPECIMENOrdering Facility: [facility] Address: [address] [place] [address] Performed By: #### 1 9123-9, 2777-1, 39955-1 ####[facility] LABORATORYCLIA [id number] [place] [address] [place] Calcium [Mass/Vol] 8.5 mg/dL Normal 8.5-10.2 [facility] Comment on above: Order Comment: Speci men Type: BLOOD SPECIMENOrdering Facility: [facility] Address: [address] [place] [address] Performed By: #### 1 9123-9, 2777-1, 10971-8 ####[facility] LABORATORYCLIA [id number] [place] [address] [place] Chloride [Moles/Vol] 99 mmol/L Normal 97-105 [facility] Comment on above: Order Comment: Speci men Type: BLOOD SPECIMENOrdering Facility: [facility] Address: [address] [place] [address] Performed By: #### 1 9123-9, 27771, 76295-0 ####[facility] LABORATORYCLIA [id number] [place] [address] [place] CO2 [Moles/Vol] 31 mmol/L High 22-30 [facility] Comment on above: Order Comment: Speci men Type: BLOOD SPECIMENOrdering Facility: [facility] Address: [address] [address] Performed By: #### 1 9123-9, 2777-, 44275-7 ####[facility] SERVICESCLIA [id number] [place] [address] [place] Creatinine [Mass/Vol] 0.74 mg/dL Normal 0.73-1.22 [facility] Comment on above: Order Comment: Speci men Type: BLOOD SPECIMENOrdering Facility: [facility] Address: [address] [place] [address] Performed By: #### 1 9123-9, 2777, 79376-2 ####[facility] [id number] [address] STATES [place] ESTIMATED GLOMERULAR FILTRATION RATE 98 mL/min/1.73m??? Normal >=60 [facility] Comment on above: Order Comment: Speci men Type: BLOOD SPECIMENOrdering Facility: [facility] Address: [address] [place] [address] Result Comment: Luzmaria mated Glomerular Filtration Rate [...] GFR. Performed By: #### 1 9123-9, 2777-, 24263-4 ####[facility] LABORATORYIA [id number] [place] [address] [place] Glucose [Mass/Vol] 117 mg/dL High 74-99 [facility] Comment on above: Order Comment: Speci men Type: BLOOD SPECIMENOrdering Facility: [facility] Address: [address] [place] [address] Result Comment: The [place] [employer] (ADA) provides guidance for cutoff [...] Standards of Medical Care in Diabetes 2016, [place] [employer]. Diabetes Care. 2016.39(Suppl 1). Performed By: #### 1 9123-9, 2777-, 87830-3 ####[facility] LABORATORYCLIA [id number] [place] [address] [place] Potassium [Moles/Vol] 3.7 mmol/L Normal 3.7-5.1 [facility] Comment on above: Order Comment: Speci men Type: BLOOD SPECIMENOrdering Facility: [facility] Address: [address] [place] [address] Performed By: #### 1 9123-9, 2777-, 65313-2 ####[facility] LABORATORYCLIA [id number] [place] [address] [place] [facility] Sodium [Moles/Vol] 139 mmol/L Normal 136-144 [facility] Comment on above: Order Comment: Johni men Type: BLOOD SPECIMENOrdering Facility: [facility] Address: [address] [place] [address] Performed By: #### 1 9123-9, 2777, 42339-7 ####[facility] LABORATORYCLIA [id number] [place] [address] [place] Urea nitrogen [Mass/Vol] 16 mg/dL Normal 9-24 [facility] Comment on above: Order Comment: Speci men Type: BLOOD SPECIMENOrdering Facility: [facility] Address: [address] [place] [address] Performed By: #### 1 9123-9, 2777-, 71587-6 ####[facility] LABORATORYCLIA [id number] [address] [place] CBC panel Auto (Bld)on 07-14 Erythrocyte distribution width (RBC) [Ratio] 16.2 % High 11.5-15.0 [facility] Comment on above: Order Comment: Speci men Type: BLOOD SPECIMENOrdering Facility: [facility] Address: [address] [place] [address] Performed By: #### 5 8410-2 ####[facility] LABORATORYCLIA [id number] [address] Hematocrit (Bld) [Volume fraction] 29.7 % Low 39.0-51.0 [facility] Comment on above: Order Comment: Speci men Type: BLOOD SPECIMENOrdering Facility: [facility] Address: [address] [place] [address] Performed By: #### 5 8410-2 ####[facility] LABORATORYCLIA [id number] [address] Hemoglobin (Bld) [Mass/Vol] 8.8 g/dL Low 13.0-17.0 [facility] Comment on above: Order Comment: Speci men Type: BLOOD SPECIMENOrdering Facility: [facility] Address: [address] [place] [address] Performed By: #### 5 8410-2 ####[facility] LABORATORYCLIA [id number] [address] MCH (RBC) [Entitic mass] 27.5 pg Normal 26.0-34.0 [facility] Comment on above: Order Comment: Speci men Type: BLOOD SPECIMENOrdering Facility: [facility] Address: [address] [place] [address] Performed By: #### 5 8410-2 ####[facility] LABORATORYCLIA [id number] [address] MCHC (RBC) [Mass/Vol] 29.6 g/dL Low 30.5-36.0 [facility] Comment on above: Order Comment: Speci men Type: BLOOD SPECIMENOrdering Facility: [facility] Address: [address] [address] Performed By: #### 5 8410-2 ####[facility] LABORATORYCLIA [id number] [address] MCV (RBC) [Entitic vol] 92.8 fL Normal 80.0-100.0 [facility] Comment on above: Order Comment: Speci men Type: BLOOD SPECIMENOrdering Facility: [facility] Address: [address] [place] [address] Performed By: #### 5 8410-2 ####[facility] LABORATORYCLIA [id number] [address] Nucleated RBC (Bld) [#/Vol] 10*3/uL Normal <0.01 [facility] Comment on above: Order Comment: Speci men Type: BLOOD SPECIMENOrdering Facility: [facility] Address: [address] [place] [address] Performed By: #### 5 8410-2 ####[facility] LABORATORYCLIA [id number] [address] Platelet mean volume (Bld) [Entitic vol] 9.6 fL Normal 9.0-12.7 [facility] Comment on above: Order Comment: Speci men Type: BLOOD SPECIMENOrdering Facility: [facility] Address: [address] [place] [address] Performed By: #### 5 8410-2 ####[facility] LABORATORYCLIA [id number] [address] Platelets (Bld) [#/Vol] 354 10*3/uL Normal 150-400 [facility] Comment on above: Order Comment: Speci men Type: BLOOD SPECIMENOrdering Facility: [facility] Address: [address] [place] [address] Performed By: #### 5 8410-2 ####[facility] LABORATORYCLIA [id number] [address] RBC (Bld) [#/Vol] 3.20 10*6/uL Low 4.20-6.00 [facility] Comment on above: Order Comment: Speci men Type: BLOOD SPECIMENOrdering Facility: [facility] Address: [address] [place] [address] Performed By: #### 5 8410-2 ####[facility] LABORATORYCLIA [id number] [address] [facility] WBC (Bld) [#/Vol] 9.41 10*3/uL Normal 3.70-11.00 [facility] Comment on above: Order Comment: Speci men Type: BLOOD SPECIMENOrdering Facility: [facility] Address: [address] [place] [address] Performed By: #### 5 8410-2 ####[facility] LABORATORYCLIA [id number] [address] CONSULT PROGon 07-14-2021 CONSULT PROG Normal [facility] Magnesium SerPl-mCncon 07-14 Magnesium [Mass/Vol] 2.2 mg/dL Normal 1.7-2.3 [facility] Comment on above: Order Comment: Speci men Type: BLOOD SPECIMENOrdering Facility: [facility] Address: [address] [place] [address] Performed By: #### 1 9123-9, 2777-1, 72606-2 ####[facility] LABORATORYCLIA [id number] [address] NURSING PROGon 07-14-2021 NURSING PROG Normal [facility] Phosphate SerPl-mCncon 07-14 Phosphate [Mass/Vol] 3.6 mg/dL Normal 2.7-4.8 [facility] Comment on above: Order Comment: Speci men Type: BLOOD SPECIMENOrdering Facility: [facility] Address: [address] [place] [address] Performed By: #### 1 9123-9, 2777-1, 82406-4 ####[facility] LABORATORYCLIA [id number] [address] [place] aPTT PPPon 07-14-2021 aPTT Coag (PPP) [Time] 62.9 s High 23.0-32.4 [facility] Comment on above: Order Comment: Speci men Type: BLOOD SPECIMENOrdering Facility: [facility] Address: [address] [place] [address] Performed By: #### 1 4979-9 ####[facility] LABORATORYCLIA [id number] [address] STATES [facility] aPTT Coag (PPP) [Time] 55.2 s High 23.0-32.4 [facility] Comment on above: Order Comment: Speci men Type: BLOOD SPECIMENOrdering Facility: [facility] Address: [address] [place] [address] Performed By: #### 1 4979-9 ####[facility] LABORATORYCLIA [id number] [address] [place] Basic metabolic 2000 panelon 07-13-2021 Anion gap [Moles/Vol] 10 mmol/L Normal 9-18 [facility] Comment on above: Order Comment: Speci men Type: BLOOD SPECIMENOrdering Facility: [facility] Address: [address] [place] [address] Performed By: #### 1 9123-9, 2777-1, 39870-0 ####[facility] LABORATORYCLIA [id number] [place] [address] [place] Calcium [Mass/Vol] 8.5 mg/dL Normal 8.5-10.2 [facility] Comment on above: Order Comment: Speci men Type: BLOOD SPECIMENOrdering Facility: [facility] Address: [address] [place] [address] Performed By: #### 1 9123-9, 2777-1, 71648-4 ####[facility] LABORATORYCLIA [id number] [place] [address] [place] Chloride [Moles/Vol] 98 mmol/L Normal 97-105 [facility] Comment on above: Order Comment: Speci men Type: BLOOD SPECIMENOrdering Facility: [facility] Address: [address] [place] [address] Performed By: #### 1 9123-9, 2777, 53247-0 ####[facility] LABORATORYCLIA [id number] [address] [place] CO2 [Moles/Vol] 32 mmol/L High 22-30 [facility] Comment on above: Order Comment: Speci men Type: BLOOD SPECIMENOrdering Facility: [facility] Address: [address] [place] [address] Performed By: #### 1 9123-9, 27711-04, 10402-1 ####[facility] LABORATORYCLIA [id number] [address] OF [facility] Creatinine [Mass/Vol] 0.75 mg/dL Normal 0.73-1.22 [facility] Comment on above: Order Comment: Speci men Type: BLOOD SPECIMENOrdering Facility: [facility] Address: [address] [place] [address] Performed By: #### 1 9123-9, 27711-04, 97973-8 ####[facility] LABORATORYCLIA [id number] [address] ESTIMATED GLOMERULAR FILTRATION RATE 98 mL/min/1.73m??? Normal >=60 [facility] Comment on above: Order Comment: Speci men Type: BLOOD SPECIMENOrdering Facility: [facility] Address: [address] [place] [address] Result Comment: Luzmaria mated Glomerular Filtration Rate [...] GFR. Performed By: #### 1 9123-9, 2777-, 30654-5 ####[facility] LABORATORYCLIA [id number] [place] [address] [place] Glucose [Mass/Vol] 118 mg/dL High 74-99 [facility] Comment on above: Order Comment: Speci men Type: BLOOD SPECIMENOrdering Facility: [facility] Address: [address] [place] [address] Result Comment: The [place] [employer] (ADA) provides guidance for cutoff [...] Standards of Medical Care in Diabetes 2016, [place] [employer]. Diabetes Care. 2016.39(Suppl 1). Performed By: #### 1 9123-9, 2777, 98913-2 ####[facility] LABORATORYCLIA [id number] [place] [address] [place] Potassium [Moles/Vol] 3.6 mmol/L Low 3.7-5.1 [facility] Comment on above: Order Comment: Speci men Type: BLOOD SPECIMENOrdering Facility: [facility] Address: [address] [place] [address] Performed By: #### 1 9123-9, 2777, 33942-2 ####[facility] LABORATORYCLIA [id number] [place] [address] [place] Sodium [Moles/Vol] 140 mmol/L Normal 136-144 [facility] Comment on above: Order Comment: Speci men Type: BLOOD SPECIMENOrdering Facility: [facility] Address: [address] [place] [address] Performed By: #### 1 9123-9, 2777-1, 86692-5 ####[facility] LABORATORYCLIA [id number] [place], [place] [address] [place] [address] [place] Urea nitrogen [Mass/Vol] 15 mg/dL Normal 9-24 [facility] Comment on above: Order Comment: Speci men Type: BLOOD SPECIMENOrdering Facility: [facility] Address: [address] [place] [address] Performed By: #### 1 9123-9, 2777-, 01853-2 ####[facility] LABORATORYCLIA [id number] [address] [place] CASE MANAGEMon 07-13-2021 CASE MANAGEM Normal [facility] CBC panel Auto (Bld)on 07-13 Erythrocyte distribution width (RBC) [Ratio] 16.2 % High 11.5-15.0 [facility] Comment on above: Order Comment: Speci men Type: BLOOD SPECIMENOrdering Facility: [facility] Address: [address] [place] [address] Performed By: #### 5 8410-2 ####[facility] LABORATORYCLIA [id number] [address] [place] Hematocrit (Bld) [Volume fraction] 29.5 % Low 39.0-51.0 [facility] Comment on above: Order Comment: Speci men Type: BLOOD SPECIMENOrdering Facility: [facility] Address: [address] [place] [address] Performed By: #### 5 8410-2 ####[facility] LABORATORYCLIA [id number] [address] [place] Hemoglobin (Bld) [Mass/Vol] 8.9 g/dL Low 13.0-17.0 [facility] Comment on above: Order Comment: Speci men Type: BLOOD SPECIMENOrdering Facility: [facility] Address: [address] [place] [address] Performed By: #### 5 8410-2 ####[facility] LABORATORYCLIA [id number] [address] MCH (RBC) [Entitic mass] 27.8 pg Normal 26.0-34.0 [facility] Comment on above: Order Comment: Speci men Type: BLOOD SPECIMENOrdering Facility: [facility] Address: [address] [place] [address] Performed By: #### 5 8410-2 ####[facility]ORATORYCLIA [id number] [address] MCHC (RBC) [Mass/Vol] 30.2 g/dL Low 30.5-36.0 [facility] Comment on above: Order Comment: Speci men Type: BLOOD SPECIMENOrdering Facility: [facility] Address: [address] [place] [address] Performed By: #### 5 8410-2 ####[facility] LABORATORYCLIA [id number] [address] MCV (RBC) [Entitic vol] 92.2 fL Normal 80.0-100.0 [facility] Comment on above: Order Comment: Speci men Type: BLOOD SPECIMENOrdering Facility: [facility] Address: [address] [place] [address] Performed By: #### 5 8410-2 ####[facility] LABORATORYCLIA [id number] [address] Nucleated RBC (Bld) [#/Vol] 10*3/uL Normal <0.01 [facility] Comment on above: Order Comment: Speci men Type: BLOOD SPECIMENOrdering Facility: [facility] Address: [address] [place] [address] Performed By: #### 5 8410-2 ####[facility]ORATORYCLIA [id number] [address] Platelet mean volume (Bld) [Entitic vol] 9.8 fL Normal 9.0-12.7 [facility] Comment on above: Order Comment: Speci men Type: BLOOD SPECIMENOrdering Facility: [facility] Address: [address] [place] [address] Performed By: #### 5 8410-2 ####[facility] LABORATORYCLIA [id number] [address] OF [facility] Platelets (Bld) [#/Vol] 356 10*3/uL Normal 150-400 [facility] Comment on above: Order Comment: Speci men Type: BLOOD SPECIMENOrdering Facility: [facility] Address: [address] [place] [address] Performed By: #### 5 8410-2 ####[facility] LABORATORYCLIA [id number] [place] [address] [place] RBC (Bld) [#/Vol] 3.20 10*6/uL Low 4.20-6.00 [facility] Comment on above: Order Comment: Speci men Type: BLOOD SPECIMENOrdering Facility: [facility] Address: [address] [place] [address] Performed By: #### 5 8410-2 ####[facility] LABORATORYCLIA [id number] [address] [place] WBC (Bld) [#/Vol] 9.20 10*3/uL Normal 3.70-11.00 [facility] Comment on above: Order Comment: Speci men Type: BLOOD SPECIMENOrdering Facility: [facility] Address: [address] [place] [address] Performed By: #### 5 8410-2 ####[facility]ORATORYCLIA [id number] [address] CONSULT PROGon 07-13-2021 CONSULT PROG Normal [facility] CONSULT PROG Normal [facility] CONSULT PROG Normal [facility] Magnesium SerPl-mCncon 07-13 Magnesium [Mass/Vol] 2.1 mg/dL Normal 1.7-2.3 [facility] Comment on above: Order Comment: Speci men Type: BLOOD SPECIMENOrdering Facility: [facility] Address: [address] [place] [address] Performed By: #### 1 9123-9, 2777-1, 40579-3 ####[facility] LABORATORYCLIA [id number] [address] Phosphate SerPl-mCncon 07-13 Phosphate [Mass/Vol] 3.7 mg/dL Normal 2.7-4.8 [facility] Comment on above: Order Comment: Speci men Type: BLOOD SPECIMENOrdering Facility: [facility] Address: [address] [place] [address] Performed By: #### 1 9123-9, 2777-1, 50496-0 ####[facility] HE[facility] SERVICESCLIA [id number] [address] THERAPY NTon 07-13-2021 THERAPY NT Normal [facility] THERAPY NT Normal [facility] Vancomycin random [Mass/Vol] on 07-13-2021 Vancomycin [Mass/Vol] 31.7 ug/mL High 10.0-20.0 [facility] Comment on above: Order Comment: Speci men Type: BLOOD SPECIMENOrdering Facility: [facility] Address: [address] [place] [address] Result Comment: Refe rence ranges and high/low indicator flags are provided as general guidelines only. The treating physician must determine appropriate target levels/dosing based on the specific clinical situation. Performed By: #### 4 091-5 ####[facility]ORATORYCLIA [id number] [address] aPTT PPPon 07-13-2021 aPTT Coag (PPP) [Time] 47.3 s High 23.0-32.4 [facility] Comment on above: Order Comment: Speci men Type: BLOOD SPECIMENOrdering Facility: [facility] Address: [address] [place] [address] Performed By: #### 1 4979-9 ####[facility] LABORATORYCLIA [id number] [address] aPTT Coag (PPP) [Time] 51.2 s High 23.0-32.4 [facility] Comment on above: Order Comment: Speci men Type: BLOOD SPECIMENOrdering Facility: [facility] Address: [address] [place] [address] Performed By: #### 1 4979-9 ####[facility] LABORATORYCLIA [id number] [place] [address] [place] aPTT Coag (PPP) [Time] 47.5 s High 23.0-32.4 [facility] Comment on above: Order Comment: Speci men Type: BLOOD SPECIMENOrdering Facility: [facility] Address: [address] [place] [address] Performed By: #### 1 4979-9 ####[facility] LABORATORYCLIA [id number] [place] [address] [place] Basic metabolic 2000 panelon 07-12-2021 Anion gap [Moles/Vol] 7 mmol/L Low 9-18 [facility] Comment on above: Order Comment: Speci men Type: BLOOD SPECIMENOrdering Facility: [facility] Address: [address] [place] [address] Performed By: #### 1 9123-9, 2777-1, 53486-7 ####[facility] HE[facility] SERVICESCLIA [id number] [place] [address] [place] Calcium [Mass/Vol] 8.3 mg/dL Low 8.5-10.2 [facility] Comment on above: Order Comment: Speci men Type: BLOOD SPECIMENOrdering Facility: [facility] Address: [address] [place] [address] Performed By: #### 1 9123-9, 2777-1, 17656-1 ####[facility] LABORATORYCLIA [id number] [address] [place] Chloride [Moles/Vol] 101 mmol/L Normal 97-105 [facility] Comment on above: Order Comment: Speci men Type: BLOOD SPECIMENOrdering Facility: [facility] Address: [address] [place], [place] [id number] Performed By: #### 1 9123-9, 2777, 37437-8 ####[facility] SERVICESCLIA [id number] [place] [id number] [place] CO2 [Moles/Vol] 32 mmol/L High 22-30 [facility] Comment on above: Order Comment: Speci men Type: BLOOD SPECIMENOrdering Facility: [facility] Address: [address] [place] [address] Performed By: #### 1 9123-9, 27711-04, 92064-0 ####[facility] SERVICESCLIA [id number] [place] [id number] [place] OF [facility] Creatinine [Mass/Vol] 0.70 mg/dL Low 0.73-1.22 [facility] Comment on above: Order Comment: Speci men Type: BLOOD SPECIMENOrdering Facility: [facility] Address: [address] [place] [address] Performed By: #### 1 9123-9, 27711-04, 09061-4 ####[facility] SERVICESCLIA [id number] [address] OF [facility] ESTIMATED GLOMERULAR FILTRATION RATE 100 mL/min/1.73m??? Normal >=60 [facility] Comment on above: Order Comment: Speci men Type: BLOOD SPECIMENOrdering Facility: [facility] Address: [address] [place] [address] Result Comment: Luzmaria mated Glomerular Filtration Rate [...] GFR. Performed By: #### 1 9123-9, 2777-1, 82815-2 ####[facility] LABORATORYCLIA [id number] [place] [id number] [place] Glucose [Mass/Vol] 104 mg/dL High 74-99 [facility] Comment on above: Order Comment: Shira feldman Type: BLOOD SPECIMENOrdering Facility: [facility] Address: [address] [place], [place] [id number] Result Comment: The [place] [employer] (ADA) provides guidance for cutoff [...] Standards of Medical Care in Diabetes 2016, [place] [employer]. Diabetes Care. 2016.39(Suppl 1). Performed By: #### 1 9123-9, 2777-, 38972-6 ####[facility] LABORATORYCLIA [id number] [place] [address] [place] Potassium [Moles/Vol] 3.7 mmol/L Normal 3.7-5.1 [facility] Comment on above: Order Comment: Shira feldman Type: BLOOD SPECIMENOrdering Facility: [facility] Address: [address] [place], [place] [address] Performed By: #### 1 9123-9, 2777-, 10693-4 ####[facility] LABORATORYCLIA [id number] [place] [address] [place] Sodium [Moles/Vol] 140 mmol/L Normal 136-144 [facility] Comment on above: Order Comment: Shira feldman Type: BLOOD SPECIMENOrdering Facility: [facility] Address: [address] [place], [place] [phone] Performed By: #### 1 9123-9, 2777-, 93424-6 ####[facility] LABORATORYCLIA [id number] [place] [address] [place] Urea nitrogen [Mass/Vol] 12 mg/dL Normal 9-24 [facility] Comment on above: Order Comment: Speci men Type: BLOOD SPECIMENOrdering Facility: [facility] Address: [address] [place] [address] Performed By: #### 1 9123-9, 2777-1, 50695-3 ####[facility] LABORATORYCLIA [id number] [address] CBC panel Auto (Bld)on 07-12 Erythrocyte distribution width (RBC) [Ratio] 16.1 % High 11.5-15.0 [facility] Comment on above: Order Comment: Speci men Type: BLOOD SPECIMENOrdering Facility: [facility] Address: [address] [place] [address] Performed By: #### 5 8410-2 ####[facility] LABORATORYCLIA [id number] [address] Hematocrit (Bld) [Volume fraction] 28.2 % Low 39.0-51.0 [facility] Comment on above: Order Comment: Speci men Type: BLOOD SPECIMENOrdering Facility: [facility] Address: [address] [place] [address] Performed By: #### 5 8410-2 ####[facility] LABORATORYCLIA [id number] [address] OF [facility] Hemoglobin (Bld) [Mass/Vol] 8.5 g/dL Low 13.0-17.0 [facility] Comment on above: Order Comment: Speci men Type: BLOOD SPECIMENOrdering Facility: [facility] Address: [address] [place] [address] Performed By: #### 5 8410-2 ####[facility] LABORATORYCLIA [id number] [address] MCH (RBC) [Entitic mass] 26.8 pg Normal 26.0-34.0 [facility] Comment on above: Order Comment: Speci men Type: BLOOD SPECIMENOrdering Facility: [facility] Address: [address] [place] [address] Performed By: #### 5 8410-2 ####[facility] LABORATORYCLIA [id number] [address] MCHC (RBC) [Mass/Vol] 30.1 g/dL Low 30.5-36.0 [facility] Comment on above: Order Comment: Speci men Type: BLOOD SPECIMENOrdering Facility: [facility] Address: [address] [place] [address] Performed By: #### 5 8410-2 ####[facility] LABORATORYCLIA [id number] [address] MCV (RBC) [Entitic vol] 89.0 fL Normal 80.0-100.0 [facility] Comment on above: Order Comment: Speci men Type: BLOOD SPECIMENOrdering Facility: [facility] Address: [address] [place] [address] Performed By: #### 5 8410-2 ####[facility] LABORATORYCLIA [id number] [address] Nucleated RBC (Bld) [#/Vol] 10*3/uL Normal <0.01 [facility] Comment on above: Order Comment: Speci men Type: BLOOD SPECIMENOrdering Facility: [facility] Address: [address] [place] [address] Performed By: #### 5 8410-2 ####[facility] LABORATORYCLIA [id number] [address] Platelet mean volume (Bld) [Entitic vol] 9.6 fL Normal 9.0-12.7 [facility] Comment on above: Order Comment: Speci men Type: BLOOD SPECIMENOrdering Facility: [facility] Address: [address] [place] [address] Performed By: #### 5 8410-2 ####[facility] LABORATORYCLIA [id number] [address] [place] Platelets (Bld) [#/Vol] 340 10*3/uL Normal 150-400 [facility] Comment on above: Order Comment: Speci men Type: BLOOD SPECIMENOrdering Facility: [facility] Address: [address] [place] [address] Performed By: #### 5 8410-2 ####[facility] LABORATORYCLIA [id number] [address] RBC (Bld) [#/Vol] 3.17 10*6/uL Low 4.20-6.00 [facility] Comment on above: Order Comment: Speci men Type: BLOOD SPECIMENOrdering Facility: [facility] Address: [address] [place] [address] Performed By: #### 5 8410-2 ####[facility] LABORATORYCLIA [id number] [address] WBC (Bld) [#/Vol] 8.66 10*3/uL Normal 3.70-11.00 [facility] Comment on above: Order Comment: Speci men Type: BLOOD SPECIMENOrdering Facility: [facility] Address: [address] [place] [address] Performed By: #### 5 8410-2 ####[facility] LABORATORYCLIA [id number] [address] CONSULTon 07-12-2021 CONSULT Normal [facility] CONSULT PROGon 07-12-2021 CONSULT PROG Normal [facility] Magnesium SerPl-mCncon 07-12 Magnesium [Mass/Vol] 2.1 mg/dL Normal 1.7-2.3 [facility] Comment on above: Order Comment: Speci men Type: BLOOD SPECIMENOrdering Facility: [facility] Address: [address] [place] [address] Performed By: #### 1 9123-9, 2777-1, 07786-4 ####[facility] LABORATORYCLIA [id number] [address] NURSING PROGon 07-12-2021 NURSING PROG Normal [facility] Phosphate SerPl-mCncon 07-12 Phosphate [Mass/Vol] 3.1 mg/dL Normal 2.7-4.8 [facility] Comment on above: Order Comment: Speci men Type: BLOOD SPECIMENOrdering Facility: [facility] Address: [address] [place] [address] Performed By: #### 1 9123-9, 2777-1, 53248-5 ####[facility] LABORATORYCLIA [id number] [address] OF [facility] THERAPY NTon 07-12-2021 THERAPY NT Normal [facility] aPTT PPPon 07-12-2021 aPTT Coag (PPP) [Time] 49.5 s High 23.0-32.4 [facility] Comment on above: Order Comment: Speci men Type: BLOOD SPECIMENOrdering Facility: [facility] Address: [address] [place] [address] Performed By: #### 1 4979-9 ####[facility] LABORATORYCLIA [id number] [address] aPTT Coag (PPP) [Time] 68.0 s High 23.0-32.4 [facility] Comment on above: Order Comment: Speci men Type: BLOOD SPECIMENOrdering Facility: [facility] Address: [address] [place] [address] Performed By: #### 1 4979-9 ####[facility] LABORATORYCLIA [id number] [address] [place] aPTT Coag (PPP) [Time] 80.0 s High 23.0-32.4 [facility] Comment on above: Order Comment: Speci men Type: BLOOD SPECIMENOrdering Facility: [facility] Address: [address] [place] [address] Performed By: #### 1 4979-9 ####[facility] LABORATORYCLIA [id number] [address] [place] CASE MGT INIT ASSESon 2021 CASE MGT INIT ASSES Normal [facility] CBC panel Auto (Bld)on 07-11 Erythrocyte distribution width (RBC) [Ratio] 16.3 % High 11.5-15.0 [facility] Comment on above: Order Comment: Speci men Type: BLOOD SPECIMENOrdering Facility: [facility] Address: [address] [place] [address] Performed By: #### 5 8410-2 ####[facility] LABORATORYCLIA [id number] [address] Hematocrit (Bld) [Volume fraction] 28.3 % Low 39.0-51.0 [facility] Comment on above: Order Comment: Speci men Type: BLOOD SPECIMENOrdering Facility: [facility] Address: [address] [place] [address] Performed By: #### 5 8410-2 ####[facility] LABORATORYCLIA [id number] [address] Hemoglobin (Bld) [Mass/Vol] 8.8 g/dL Low 13.0-17.0 [facility] Comment on above: Order Comment: Speci men Type: BLOOD SPECIMENOrdering Facility: [facility] Address: [address] [place] [address] Performed By: #### 5 8410-2 ####[facility] LABORATORYCLIA [id number] [address] STATES [facility] MCH (RBC) [Entitic mass] 27.4 pg Normal 26.0-34.0 [facility] Comment on above: Order Comment: Speci men Type: BLOOD SPECIMENOrdering Facility: [facility] Address: [address] [place] [address] Performed By: #### 5 8410-2 ####[facility] LABORATORYCLIA [id number] [address] [place] MCHC (RBC) [Mass/Vol] 31.1 g/dL Normal 30.5-36.0 [facility] Comment on above: Order Comment: Speci men Type: BLOOD SPECIMENOrdering Facility: [facility] Address: [address] [address] Performed By: #### 5 8410-2 ####[facility] LABORATORYCLIA [id number] [address] STATES OF [facility] MCV (RBC) [Entitic vol] 88.2 fL Normal 80.0-100.0 [facility] Comment on above: Order Comment: Speci men Type: BLOOD SPECIMENOrdering Facility: [facility] Address: [address] [place] [address] Performed By: #### 5 8410-2 ####[facility] LABORATORYCLIA [id number] [address] OF [place] Nucleated RBC (Bld) [#/Vol] 10*3/uL Normal <0.01 [facility] Comment on above: Order Comment: Speci men Type: BLOOD SPECIMENOrdering Facility: [facility] Address: [address] [address] Performed By: #### 5 8410-2 ####[facility] LABORATORYCLIA [id number] [address] Platelet mean volume (Bld) [Entitic vol] 9.7 fL Normal 9.0-12.7 [facility] Comment on above: Order Comment: Speci men Type: BLOOD SPECIMENOrdering Facility: [facility] Address: [address] [address] Performed By: #### 5 8410-2 ####[facility] LABORATORYCLIA [id number] [address] [place] Platelets (Bld) [#/Vol] 315 10*3/uL Normal 150-400 [facility] Comment on above: Order Comment: Speci men Type: BLOOD SPECIMENOrdering Facility: [facility] Address: [address] [address] Performed By: #### 5 8410-2 ####[facility] LABORATORYCLIA [id number] [address] OF [facility] RBC (Bld) [#/Vol] 3.21 10*6/uL Low 4.20-6.00 [facility] Comment on above: Order Comment: Speci men Type: BLOOD SPECIMENOrdering Facility: [facility] Address: [address] [place] [address] Performed By: #### 5 8410-2 ####[facility] LABORATORYCLIA [id number] [address] WBC (Bld) [#/Vol] 9.18 10*3/uL Normal 3.70-11.00 [facility] Comment on above: Order Comment: Speci men Type: BLOOD SPECIMENOrdering Facility: [facility] Address: [address] [place] [address] Performed By: #### 5 8410-2 ####[facility] LABORATORYCLIA [id number] [address] CONSULT PROGon 07-11-2021 CONSULT PROG Normal [facility] CT BRAIN WO IVCONon 07-12-[address] BRAIN WO IVCON Normal [facility] Magnesium SerPl-mCncon 07-11 Magnesium [Mass/Vol] 2.1 mg/dL Normal 1.7-2.3 [facility] Comment on above: Order Comment: Speci men Type: BLOOD SPECIMENOrdering Facility: [facility] Address: [address] [place] [address] Performed By: #### 1 9123-9, 2777-1 ####[facility] LABORATORYCLIA [id number] [address] NURSING PROGon 07-11-2021 NURSING PROG Normal [facility] NURSING PROG Normal [facility] Phosphate SerPl-mCncon 07-11 Phosphate [Mass/Vol] 3.4 mg/dL Normal 2.7-4.8 [facility] Comment on above: Order Comment: Speci men Type: BLOOD SPECIMENOrdering Facility: [facility] Address: [address] [place] [address] Performed By: #### 1 9123-9, 2777-1 ####[facility] LABORATORYCLIA [id number] [address] OF [facility] THERAPY NTon 07-11-2021 THERAPY NT Normal [facility] Vancomycin random [Mass/Vol] on 07-11-2021 Vancomycin [Mass/Vol] 28.6 ug/mL High 10.0-20.0 [facility] Comment on above: Order Comment: Speci men Type: BLOOD SPECIMENOrdering Facility: [facility] Address: [address] [place] [address] Result Comment: Refe rence ranges and high/low indicator flags are provided as general guidelines only. The treating physician must determine appropriate target levels/dosing based on the specific clinical situation. Performed By: #### 4 091-5 ####[facility] LABORATORYCLIA [id number] [address] STATES OF [facility] aPTT PPPon 07-11-2021 aPTT Coag (PPP) [Time] 62.0 s High 23.0-32.4 [facility] Comment on above: Order Comment: Speci men Type: BLOOD SPECIMENOrdering Facility: [facility] Address: [address] [place] [address] Performed By: #### 1 4979-9 ####[facility] LABORATORYCLIA [id number] [address] STATES OF [facility] aPTT Coag (PPP) [Time] 52.7 s High 23.0-32.4 [facility] Comment on above: Order Comment: Speci men Type: BLOOD SPECIMENOrdering Facility: [facility] Address: [address] [place] [address] Performed By: #### 1 4979-9 ####[facility] LABORATORYCLIA [id number] [address] OF [facility] aPTT Coag (PPP) [Time] 29.9 s Normal 23.0-32.4 [facility] Comment on above: Order Comment: Speci men Type: BLOOD SPECIMENOrdering Facility: [facility] Address: [address] [place] [address] Performed By: #### 1 4979-9 ####[facility] LABORATORYCLIA [id number] [place] [address] [place] Basic metabolic 2000 panelon 07-10-2021 Anion gap [Moles/Vol] 14 mmol/L Normal 9-18 [facility] Comment on above: Order Comment: Speci men Type: BLOOD SPECIMENOrdering Facility: [facility] Address: [address] [place] [address] Performed By: #### 1 9123-9, 2777-1, 52203-7 ####[facility] LABORATORYCLIA [id number] [place] [address] [place] Calcium [Mass/Vol] 8.5 mg/dL Normal 8.5-10.2 [facility] Comment on above: Order Comment: Speci men Type: BLOOD SPECIMENOrdering Facility: [facility] Address: [address] [place] [address] Performed By: #### 1 9123-9, 2777-1, 99793-7 ####[facility] LABORATORYCLIA [id number] [address] STATES [place] Chloride [Moles/Vol] 100 mmol/L Normal 97-105 [facility] Comment on above: Order Comment: Speci men Type: BLOOD SPECIMENOrdering Facility: [facility] Address: [address] [place] [address] Performed By: #### 1 9123-9, 2777-1, 51567-4 ####[facility] LABORATORYCLIA [id number] [place] [address] [place] CO2 [Moles/Vol] 27 mmol/L Normal 22-30 [facility] Comment on above: Order Comment: Speci men Type: BLOOD SPECIMENOrdering Facility: [facility] Address: [address] [place] [address] Performed By: #### 1 9123-9, 2777-1, 12671-4 ####[facility] HE[facility] SERVICESCLIA [id number] [place] [address] [place] [facility] Creatinine [Mass/Vol] 0.66 mg/dL Low 0.73-1.22 [facility] Comment on above: Order Comment: Speccara feldman Type: BLOOD SPECIMENOrdering Facility: [facility] Address: [address] [place] [address] Performed By: #### 1 9123-9, 2777-1, 43253-3 ####[facility]PITALIA [id number] [place] [address] [facility] OF [facility] ESTIMATED GLOMERULAR FILTRATION RATE 102 mL/min/1.73m??? Normal >=60 [facility] Comment on above: Order Comment: Shira feldman Type: BLOOD SPECIMENOrdering Facility: [facility] Address: [address] [place] [address] Result Comment: Luzmaria mated Glomerular Filtration Rate [...] GFR. Performed By: #### 1 9123-9, 2777-1, 53153-8 ####[facility] HOSPITALIA [id number] [place] [address] [place] Glucose [Mass/Vol] 93 mg/dL Normal 74-99 [facility] Comment on above: Order Comment: Speccara feldman Type: BLOOD SPECIMENOrdering Facility: [facility] Address: [address] [id number] Result Comment: The [place] [employer] (ADA) provides guidance for cutoff [...] Standards of Medical Care in Diabetes 2016, [place] [employer]. Diabetes Care. 2016.39(Suppl 1). Performed By: #### 1 9123-9, 2777-, 56754-7 ####[facility] LABORATORYCLIA [id number] [address] [place] Potassium [Moles/Vol] 3.5 mmol/L Low 3.7-5.1 [facility] Comment on above: Order Comment: Shira feldman Type: BLOOD SPECIMENOrdering Facility: [facility] Address: [address] [place] [address] Performed By: #### 1 9123-9, 2777, 45066-1 ####[facility]ITALIA [id number] [address] STATES OF [facility] Sodium [Moles/Vol] 141 mmol/L Normal 136-144 [facility] Comment on above: Order Comment: Shira feldman Type: BLOOD SPECIMENOrdering Facility: [facility] Address: [address] [place] [address] Performed By: #### 1 9123-9, 2777, 65853-4 ####[facility] HE[facility] SERVICESCLIA [id number] [address] STATES [facility] Urea nitrogen [Mass/Vol] 11 mg/dL Normal 9-24 [facility] Comment on above: Order Comment: Shira feldman Type: BLOOD SPECIMENOrdering Facility: [facility] Address: [address] [place] [address] Performed By: #### 1 9123-9, 2777, 42946-4 ####[facility] LABORATORYCLIA [id number] [address] [place] CBC panel Auto (Bld)on 07-10 Erythrocyte distribution width (RBC) [Ratio] 16.2 % High 11.5-15.0 [facility] Comment on above: Order Comment: Speci men Type: BLOOD SPECIMENOrdering Facility: [facility] Address: [address] [place] [address] Performed By: #### 5 8410-2 ####[facility] LABORATORYCLIA [id number] [address] Hematocrit (Bld) [Volume fraction] 30.6 % Low 39.0-51.0 [facility] Comment on above: Order Comment: Speci men Type: BLOOD SPECIMENOrdering Facility: [facility] Address: [address] [place] [address] Performed By: #### 5 8410-2 ####[facility] LABORATORYCLIA [id number] [address] OF [facility] Hemoglobin (Bld) [Mass/Vol] 9.6 g/dL Low 13.0-17.0 [facility] Comment on above: Order Comment: Speci men Type: BLOOD SPECIMENOrdering Facility: [facility] Address: [address] [place] [address] Performed By: #### 5 8410-2 ####[facility] LABORATORYCLIA [id number] [address] MCH (RBC) [Entitic mass] 28.3 pg Normal 26.0-34.0 [facility] Comment on above: Order Comment: Speci men Type: BLOOD SPECIMENOrdering Facility: [facility] Address: [address] [place] [address] Performed By: #### 5 8410-2 ####[facility] LABORATORYCLIA [id number] [address] MCHC (RBC) [Mass/Vol] 31.4 g/dL Normal 30.5-36.0 [facility] Comment on above: Order Comment: Speci men Type: BLOOD SPECIMENOrdering Facility: [facility] Address: [address] [place] [address] Performed By: #### 5 8410-2 ####[facility] LABORATORYCLIA [id number] [address] MCV (RBC) [Entitic vol] 90.3 fL Normal 80.0-100.0 [facility] Comment on above: Order Comment: Speci men Type: BLOOD SPECIMENOrdering Facility: [facility] Address: [address] [place] [address] Performed By: #### 5 8410-2 ####[facility] LABORATORYCLIA [id number] [address] Nucleated RBC (Bld) [#/Vol] 10*3/uL Normal <0.01 [facility] Comment on above: Order Comment: Speci men Type: BLOOD SPECIMENOrdering Facility: [facility] Address: [address] [place] [address] Performed By: #### 5 8410-2 ####[facility] LABORATORYCLIA [id number] [address] Platelet mean volume (Bld) [Entitic vol] 9.7 fL Normal 9.0-12.7 [facility] Comment on above: Order Comment: Speci men Type: BLOOD SPECIMENOrdering Facility: [facility] Address: [address] [place] [address] Performed By: #### 5 8410-2 ####[facility] LABORATORYCLIA [id number] [address] Platelets (Bld) [#/Vol] 306 10*3/uL Normal 150-400 [facility] Comment on above: Order Comment: Speci men Type: BLOOD SPECIMENOrdering Facility: [facility] Address: [address] [place] [address] Performed By: #### 5 8410-2 ####[facility] LABORATORYCLIA [id number] [address] OF [place] RBC (Bld) [#/Vol] 3.39 10*6/uL Low 4.20-6.00 [facility] Comment on above: Order Comment: Speci men Type: BLOOD SPECIMENOrdering Facility: [facility] Address: [address] [place] [address] Performed By: #### 5 8410-2 ####[facility] LABORATORYCLIA [id number] [address] OF [facility] WBC (Bld) [#/Vol] 9.81 10*3/uL Normal 3.70-11.00 [facility] Comment on above: Order Comment: Speci men Type: BLOOD SPECIMENOrdering Facility: [facility] Address: [address] [place] [address] Performed By: #### 5 8410-2 ####[facility] LABORATORYCLIA [id number] [address] [place] CONSULTon 07-10-2021 CONSULT Normal [facility] CONSULT Normal [facility] Magnesium SerPl-ncon 07-10 Magnesium [Mass/Vol] 1.9 mg/dL Normal 1.7-2.3 [facility] Comment on above: Order Comment: Speci men Type: BLOOD SPECIMENOrdering Facility: [facility] Address: [address] [place] [address] Performed By: #### 1 9123-9, 2777-1, 95972-6 ####[facility] LABORATORYCLIA [id number] [address] [place] NURSING PROGon 07-10-2021 NURSING PROG Normal [facility] NURSING PROG Normal [facility] NUTRITIONon 07-10-2021 NUTRITION Normal [facility] Phosphate SerPl-mCncon 07-10 Phosphate [Mass/Vol] 3.6 mg/dL Normal 2.7-4.8 [facility] Comment on above: Order Comment: Speci men Type: BLOOD SPECIMENOrdering Facility: [facility] Address: [address] [place] [address] Performed By: #### 1 9123-9, 2777-1, 03765-9 ####[facility] LABORATORYCLIA [id number] [address] [place] US DVT LOWER BILon US DVT LOWER RAINER Normal [facility] aPTT PPPon 07-10-2021 aPTT Coag (PPP) [Time] 28.8 s Normal 23.0-32.4 [facility] Comment on above: Order Comment: Speci men Type: BLOOD SPECIMENOrdering Facility: [facility] Address: [address] [place] [address] Performed By: #### 1 4979-9 ####[facility] LABORATORYCLIA [id number] [address] OF [facility] aPTT Coag (PPP) [Time] 28.4 s Normal 23.0-32.4 [facility] Comment on above: Order Comment: Speci men Type: BLOOD SPECIMENOrdering Facility: [facility] Address: [address] [place] [address] Performed By: #### 1 4979-9 ####[facility] LABORATORYCLIA [id number] [address] [place] ALLIED HEALTHon 07-09-2021 ALLIED HEALTH Normal [facility] Basic metabolic 2000 panelon 07-09-2021 Anion gap [Moles/Vol] 9 mmol/L Normal 9-18 [facility] Comment on above: Order Comment: Speci men Type: BLOOD SPECIMENOrdering Facility: [facility] Address: [address] [place] [address] Performed By: #### 1 9123-9, 2777-, 25060-0 ####[facility] LABORATORYCLIA [id number] [address] STATES OF [facility] Calcium [Mass/Vol] 8.3 mg/dL Low 8.5-10.2 [facility] Comment on above: Order Comment: Speci men Type: BLOOD SPECIMENOrdering Facility: [facility] Address: [address] [place] [address] Performed By: #### 1 9123-9, 2777-, 75290-9 ####[facility] LABORATORYCLIA [id number] [place] [address] [place] Chloride [Moles/Vol] 100 mmol/L Normal 97-105 [facility] Comment on above: Order Comment: Speci men Type: BLOOD SPECIMENOrdering Facility: [facility] Address: [address] [place] [address] Performed By: #### 1 9123-9, 2777-, 92021-0 ####[facility] SERVICESCLIA [id number] [address] OF [facility] CO2 [Moles/Vol] 29 mmol/L Normal 22-30 [facility] Comment on above: Order Comment: Speci men Type: BLOOD SPECIMENOrdering Facility: [facility] Address: [address] [place] [address] Performed By: #### 1 9123-9, 2777, 60950-1 ####[facility] SERVICESCLIA [id number] [address] Creatinine [Mass/Vol] 0.61 mg/dL Low 0.73-1.22 [facility] Comment on above: Order Comment: Speci men Type: BLOOD SPECIMENOrdering Facility: [facility] Address: [address] [place] [address] Performed By: #### 1 9123-9, 2777-, 12232-0 ####[facility]ITALIA [id number] [address] ESTIMATED GLOMERULAR FILTRATION RATE 104 mL/min/1.73m??? Normal >=60 [facility] Comment on above: Order Comment: Speci men Type: BLOOD SPECIMENOrdering Facility: [facility] Address: [address] [place] [address] Result Comment: Luzmaria mated Glomerular Filtration Rate [...] GFR. Performed By: #### 1 9123-9, 2777-, 52911-1 ####[facility] LABORATORYCLIA [id number] [place] [address] [place] Glucose [Mass/Vol] 106 mg/dL High 74-99 [facility] Comment on above: Order Comment: Shira feldman Type: BLOOD SPECIMENOrdering Facility: [facility] Address: [address] [place], [place] [id number] Result Comment: The [place] [employer] (ADA) provides guidance for cutoff [...] Standards of Medical Care in Diabetes 2016, [place] [employer]. Diabetes Care. 2016.39(Suppl 1). Performed By: #### 1 9123-9, 2777-, 62157-7 ####[facility] LABORATORYCLIA [id number] [place] [address] [place] Potassium [Moles/Vol] 3.6 mmol/L Low 3.7-5.1 [facility] Comment on above: Order Comment: Shira feldman Type: BLOOD SPECIMENOrdering Facility: [facility] Address: [address] [id number] Performed By: #### 1 9123-9, 2777-, 84450-3 ####[facility] LABORATORYCLIA [id number] [place] [address] [place] Sodium [Moles/Vol] 138 mmol/L Normal 136-144 [facility] Comment on above: Order Comment: Shira feldman Type: BLOOD SPECIMENOrdering Facility: [facility] Address: [address] [place] [address] Performed By: #### 1 9123-9, 2777-1, 17339-7 ####[facility] LABORATORYCLIA [id number] [address] Urea nitrogen [Mass/Vol] 12 mg/dL Normal 9-24 [facility] Comment on above: Order Comment: Speci men Type: BLOOD SPECIMENOrdering Facility: [facility] Address: [address] [place] [address] Performed By: #### 1 9123-9, 2777-, 97214-7 ####[facility] LABORATORYCLIA [id number] [address] CBC panel Auto (Bld)on 07-09 Erythrocyte distribution width (RBC) [Ratio] 16.2 % High 11.5-15.0 [facility] Comment on above: Order Comment: Speci men Type: BLOOD SPECIMENOrdering Facility: [facility] Address: [address] [place] [address] Performed By: #### 5 8410-2 ####[facility] LABORATORYCLIA [id number] [address] STATES OF [facility] Hematocrit (Bld) [Volume fraction] 29.0 % Low 39.0-51.0 [facility] Comment on above: Order Comment: Speci men Type: BLOOD SPECIMENOrdering Facility: [facility] Address: [address] [place] [address] Performed By: #### 5 8410-2 ####[facility] LABORATORYCLIA [id number] [address] STATES OF [facility] Hemoglobin (Bld) [Mass/Vol] 8.8 g/dL Low 13.0-17.0 [facility] Comment on above: Order Comment: Speci men Type: BLOOD SPECIMENOrdering Facility: [facility] Address: [address] [place] [address] Performed By: #### 5 8410-2 ####[facility] LABORATORYCLIA [id number] [address] MCH (RBC) [Entitic mass] 27.0 pg Normal 26.0-34.0 [facility] Comment on above: Order Comment: Speci men Type: BLOOD SPECIMENOrdering Facility: [facility] Address: [address] [place] [address] Performed By: #### 5 8410-2 ####[facility] LABORATORYCLIA [id number] [address] MCHC (RBC) [Mass/Vol] 30.3 g/dL Low 30.5-36.0 [facility] Comment on above: Order Comment: Speci men Type: BLOOD SPECIMENOrdering Facility: [facility] Address: [address] [place] [address] Performed By: #### 5 8410-2 ####[facility] SERVICESCLIA [id number] [address] MCV (RBC) [Entitic vol] 89.0 fL Normal 80.0-100.0 [facility] Comment on above: Order Comment: Speci men Type: BLOOD SPECIMENOrdering Facility: [facility] Address: [address] [place] [address] Performed By: #### 5 8410-2 ####[facility] LABORATORYCLIA [id number] [address] Nucleated RBC (Bld) [#/Vol] 10*3/uL Normal <0.01 [facility] Comment on above: Order Comment: Speci men Type: BLOOD SPECIMENOrdering Facility: [facility] Address: [address] [place] [address] Performed By: #### 5 8410-2 ####[facility] LABORATORYCLIA [id number] [address] Platelet mean volume (Bld) [Entitic vol] 9.8 fL Normal 9.0-12.7 [facility] Comment on above: Order Comment: Speci men Type: BLOOD SPECIMENOrdering Facility: [facility] Address: [address] [place] [address] Performed By: #### 5 8410-2 ####[facility] LABORATORYCLIA [id number] [address] Platelets (Bld) [#/Vol] 281 10*3/uL Normal 150-400 [facility] Comment on above: Order Comment: Speci men Type: BLOOD SPECIMENOrdering Facility: [facility] Address: [address] [place] [address] Performed By: #### 5 8410-2 ####[facility] LABORATORYCLIA [id number] [address] [facility] RBC (Bld) [#/Vol] 3.26 10*6/uL Low 4.20-6.00 [facility] Comment on above: Order Comment: Speci men Type: BLOOD SPECIMENOrdering Facility: [facility] Address: [address] [place] [address] Performed By: #### 5 8410-2 ####[facility] LABORATORYCLIA [id number] [address] WBC (Bld) [#/Vol] 9.12 10*3/uL Normal 3.70-11.00 [facility] Comment on above: Order Comment: Speci men Type: BLOOD SPECIMENOrdering Facility: [facility] Address: [address] [place] [address] Performed By: #### 5 8410-2 ####[facility] LABORATORYCLIA [id number] [address] CONSULT PROGon 07-09-2021 CONSULT PROG Normal [facility] CONSULT PROG Normal [facility] HISTORY PHYSICALon HISTORY PHYSICAL Normal [facility] Magnesium SerPl-mCncon 07-09 Magnesium [Mass/Vol] 1.9 mg/dL Normal 1.7-2.3 [facility] Comment on above: Order Comment: Speci men Type: BLOOD SPECIMENOrdering Facility: [facility] Address: [address] [address] Performed By: #### 1 9123-9, 2777-1, 08252-5 ####[facility]ORATORYCLIA [id number] [address] [place] Phosphate SerPl-mCncon 07-09 Phosphate [Mass/Vol] 3.6 mg/dL Normal 2.7-4.8 [facility] Comment on above: Order Comment: Speci men Type: BLOOD SPECIMENOrdering Facility: [facility] Address: [address] [address] Performed By: #### 1 9123-9, 2777-, 85155-6 ####[facility]ORATORYCLIA [id number] [address] [place] THERAPY NTon 07-09-2021 THERAPY NT Normal [facility] XR ABDOMEN 1V SUPINEon 07-09 XR ABDOMEN 1V SUPINE Normal [facility] ALLIED HEALTHon 07-08-2021 ALLIED HEALTH Normal [facility] ALLIED HEALTH Normal [facility] ALLIED HEALTH Normal [facility] ANES PRE-OPon 07-08-2021 ANES PRE-OP Normal [facility] BRIEF OP NOTon 07-08-2021 BRIEF OP NOT Normal [facility] Bacteria Bld Culton 07-09-19 22 Bacteria identified Cx Nom (Bld) CULTURE, BLOOD: No growth 5 days Normal [facility] Comment on above: Performed By: #### 6 00-7 ####[facility]ORATORYCLIA [id number] [address] [place] Bacteria identified Cx Nom (Bld) CULTURE, BLOOD: No growth 5 days Normal [facility] Comment on above: Performed By: #### 6 00-7 ####[facility]ATORYCLIA [id number] [address] [place] Bacteria CSF Culton 07-09-19 22 Bacteria identified Cx Nom (CSF) CULTURE, CSF: No growth 14 days GRAM STAIN: No organisms seen No Polymorphonuclear Leukocytes Few Red Blood Cells Gram stain performed on cytospun specimen. Normal [facility] Comment on above: Performed By: #### 6 06-4 ####[facility]ORATORYCLIA [id number] [address] Bacteria Ur Culton 2 Bacteria identified Cx Nom (U) ORGANISM ID: 1 10,000 -<50,000 CFU/ml Proteus species Insignificant colony count. No further workup. ORGANISM ID: 2 <10,000 CFU/ml Normal urogenital chris Normal [facility] Comment on above: Performed By: #### 6 30-4 ####[facility]ORATORYCLIA [id number] [address] Bacteria Wnd Culton 07-09-19 22 Bacteria identified Cx Nom (Wound) ORGANISM ID: 1 Coagulase negative staphylococcus Growth in Enrichment Broth Only No susceptibility testing done. Call lab within 72 hours to initiate work-up if clinically indicated. GRAM STAIN: Account credited. Not performed on this specimen type. Normal [facility] Comment on above: Performed By: #### 6 462-6 ####[facility]ORATORYCLIA [id number] [address] Bacteria identified Cx Nom (Wound) ORGANISM ID: 1 Rare Coagulase negative staphylococcus No susceptibility testing done. Call lab within 72 hours to initiate work-up if clinically indicated. GRAM STAIN: Account credited. Not performed on this specimen type. Normal [facility] Comment on above: Performed By: #### 6 462-6 ####[facility]ORATORYCLIA [id number] [address] Bacteria identified Cx Nom (Wound) CULTURE, INTRAOPERATIVE HARDWARE: No growth 14 days GRAM STAIN: Account credited. Not performed on this specimen type. [facility] Comment on above: Performed By: #### 6 462-6 ####[facility]ATORYCLIA [id number] [address] Basic metabolic 2000 panelon 07-08-2021 Anion gap [Moles/Vol] 9 mmol/L Normal 9-18 [facility] Comment on above: Order Comment: Speci men Type: BLOOD SPECIMENOrdering Facility: [facility] Address: [address] [place] [address] Performed By: #### 2 4321-2 ####[facility]ORATORYCLIA [id number] [place] [address] [place] Calcium [Mass/Vol] 8.5 mg/dL Normal 8.5-10.2 [facility] Comment on above: Order Comment: Speci men Type: BLOOD SPECIMENOrdering Facility: [facility] Address: [address] [place] [address] Performed By: #### 2 4321-2 ####[facility]ORATORYCLIA [id number] [place] [address] [place] Chloride [Moles/Vol] 98 mmol/L Normal 97-105 [facility] Comment on above: Order Comment: Speci men Type: BLOOD SPECIMENOrdering Facility: [facility] Address: [address] [place] [address] Performed By: #### 2 4321-2 ####[facility]ORATORYCLIA [id number] [place] [address] [place] CO2 [Moles/Vol] 31 mmol/L High 22-30 [facility] Comment on above: Order Comment: Speci men Type: BLOOD SPECIMENOrdering Facility: [facility] Address: [address] [place] [address] Performed By: #### 2 4321-2 ####[facility]ORATORYCLIA [id number] [place] [address] [place] Creatinine [Mass/Vol] 0.64 mg/dL Low 0.73-1.22 [facility] Comment on above: Order Comment: Speci men Type: BLOOD SPECIMENOrdering Facility: [facility] Address: [address] [place] [address] Performed By: #### 2 4321-2 ####[facility] LABORATORYCLIA [id number] [place] [address] [place] ESTIMATED GLOMERULAR FILTRATION RATE 102 mL/min/1.73m??? Normal >=60 [facility] Comment on above: Order Comment: Shira feldman Type: BLOOD SPECIMENOrdering Facility: [facility] Address: [address] [place] [address] Result Comment: Luzmaria mated Glomerular Filtration Rate [...] actual GFR. Performed By: #### 2 4321-2 ####[facility] LABORATORYIA [id number] [place] [address] [place] Glucose [Mass/Vol] 114 mg/dL High 74-99 [facility] Comment on above: Order Comment: Shira feldman Type: BLOOD SPECIMENOrdering Facility: [facility] Address: [address] [place] [address] Result Comment: The [place] [employer] (ADA) provides guidance for cutoff [...] Standards of Medical Care in Diabetes 2016, [place] [employer]. Diabetes Care. 2016.39(Suppl 1). Performed By: #### 2 4321-2 ####[facility]ORATORYCLIA [id number] [place] [address] [place] Potassium [Moles/Vol] 3.4 mmol/L Low 3.7-5.1 [facility] Comment on above: Order Comment: Speci men Type: BLOOD SPECIMENOrdering Facility: [facility] Address: [address] [place] [address] Performed By: #### 2 4321-2 ####[facility]ORATORYCLIA [id number] [address] [place] Sodium [Moles/Vol] 138 mmol/L Normal 136-144 [facility] Comment on above: Order Comment: Speci men Type: BLOOD SPECIMENOrdering Facility: [facility] Address: [address] [place] [address] Performed By: #### 2 4321-2 ####[facility]ORATORYCLIA [id number] [address] STATES [facility] Urea nitrogen [Mass/Vol] 14 mg/dL Normal 9-24 [facility] Comment on above: Order Comment: Speci men Type: BLOOD SPECIMENOrdering Facility: [facility] Address: [address] [place] [address] Performed By: #### 2 4321-2 ####[facility]ORATORYCLIA [id number] [address] STATES [facility] CBC W Auto Differential pane l (Bld)on 07-08-2021 Basophils (Bld) [#/Vol] 0.05 10*3/uL Normal <0.11 [facility] Comment on above: Order Comment: Speci men Type: BLOOD SPECIMENOrdering Facility: [facility] Address: [address] [place] [address] Performed By: #### 5 7021-8 ####[facility]ORATORYCLIA [id number] [address] [place] Basophils/100 WBC (Bld) 0.4 % Normal [facility] Comment on above: Order Comment: Speci men Type: BLOOD SPECIMENOrdering Facility: [facility] Address: [address] [place] [address] Performed By: #### 5 7021-8 ####[facility]ORATORYCLIA [id number] [address] Differential cell count method Nom (Bld) Auto Normal [facility] Comment on above: Order Comment: Speci men Type: BLOOD SPECIMENOrdering Facility: [facility] Address: [address] [place] [address] Performed By: #### 5 7021-8 ####[facility]ORATORYCLIA [id number] [address] [place] Eosinophils (Bld) [#/Vol] 0.68 10*3/uL High <0.46 [facility] Comment on above: Order Comment: Speci men Type: BLOOD SPECIMENOrdering Facility: [facility] Address: [address] [place] [address] Performed By: #### 5 7021-8 ####[facility]ORATORYCLIA [id number] [address] Eosinophils/100 WBC (Bld) 5.4 % Normal [facility] Comment on above: Order Comment: Speci men Type: BLOOD SPECIMENOrdering Facility: [facility] Address: [address] [place] [address] Performed By: #### 5 7021-8 ####[facility]ORATORYCLIA [id number] [address] Erythrocyte distribution width (RBC) [Ratio] 16.3 % High 11.5-15.0 [facility] Comment on above: Order Comment: Speci men Type: BLOOD SPECIMENOrdering Facility: [facility] Address: [address] [place] [address] Performed By: #### 5 7021-8 ####[facility]ORATORYCLIA [id number] [address] [place] Hematocrit (Bld) [Volume fraction] 35.7 % Low 39.0-51.0 [facility] Comment on above: Order Comment: Speci men Type: BLOOD SPECIMENOrdering Facility: [facility] Address: [address] [place] [address] Performed By: #### 5 7021-8 ####[facility]ORATORYCLIA [id number] [address] [place] Hemoglobin (Bld) [Mass/Vol] 10.8 g/dL Low 13.0-17.0 [facility] Comment on above: Order Comment: Speci men Type: BLOOD SPECIMENOrdering Facility: [facility] Address: [address] [place] [address] Performed By: #### 5 7021-8 ####[facility]ORATORYCLIA [id number] [address] OF [facility] IMMATURE GRAN % 0.4 % Normal [facility] Comment on above: Order Comment: Speci men Type: BLOOD SPECIMENOrdering Facility: [facility] Address: [address] [place] [address] Performed By: #### 5 7021-8 ####[facility]ORATORYCLIA [id number] [address] IMMATURE GRAN ABS 0.05 k/uL Normal <0.10 [facility] Comment on above: Order Comment: Speci men Type: BLOOD SPECIMENOrdering Facility: [facility] Address: [address] [place] [address] Performed By: #### 5 7021-8 ####[facility]ORATORYCLIA [id number] [address] [place] Lymphocytes (Bld) [#/Vol] 1.85 10*3/uL Normal 1.00-4.00 [facility] Comment on above: Order Comment: Speci men Type: BLOOD SPECIMENOrdering Facility: [facility] Address: [address] [place] [address] Performed By: #### 5 7021-8 ####[facility]ORATORYCLIA [id number] [address] Lymphocytes/100 WBC (Bld) 14.7 % Normal [facility] Comment on above: Order Comment: Speci men Type: BLOOD SPECIMENOrdering Facility: [facility] Address: [address] [place], [place] [address] Performed By: #### 5 7021-8 ####[facility]ORATORYCLIA [id number] [address] MCH (RBC) [Entitic mass] 27.1 pg Normal 26.0-34.0 [facility] Comment on above: Order Comment: Speci men Type: BLOOD SPECIMENOrdering Facility: [facility] Address: [address] [place] [address] Performed By: #### 5 7021-8 ####[facility]ORATORYCLIA [id number] [address] OF [facility] MCHC (RBC) [Mass/Vol] 30.3 g/dL Low 30.5-36.0 [facility] Comment on above: Order Comment: Speci men Type: BLOOD SPECIMENOrdering Facility: [facility] Address: [address] [place] [address] Performed By: #### 5 7021-8 ####[facility]ORATORYCLIA [id number] [address] MCV (RBC) [Entitic vol] 89.7 fL Normal 80.0-100.0 [facility] Comment on above: Order Comment: Speci men Type: BLOOD SPECIMENOrdering Facility: [facility] Address: [address] [place] [address] Performed By: #### 5 7021-8 ####[facility]ORATORYCLIA [id number] [address] Monocytes (Bld) [#/Vol] 0.87 10*3/uL High <0.87 [facility] Comment on above: Order Comment: Speci men Type: BLOOD SPECIMENOrdering Facility: [facility] Address: [address] [place] [address] Performed By: #### 5 7021-8 ####[facility]ORATORYCLIA [id number] [address] Monocytes/100 WBC (Bld) 6.9 % Normal [facility] Comment on above: Order Comment: Speci men Type: BLOOD SPECIMENOrdering Facility: [facility] Address: [address] [place] [address] Performed By: #### 5 7021-8 ####[facility]ATORYCLIA [id number] [address] [place] Neutrophils (Bld) [#/Vol] 9.05 10*3/uL High 1.45-7.50 [facility] Comment on above: Order Comment: Speci men Type: BLOOD SPECIMENOrdering Facility: [facility] Address: [address] [place] [address] Performed By: #### 5 7021-8 ####[facility]ORATORYCLIA [id number] [address] [place] Neutrophils/100 WBC (Bld) 72.2 % Normal [facility] Comment on above: Order Comment: Speci men Type: BLOOD SPECIMENOrdering Facility: [facility] Address: [address] [place] [address] Performed By: #### 5 7021-8 ####[facility]ORATORYCLIA [id number] [address] [place] Nucleated RBC (Bld) [#/Vol] 10*3/uL Normal <0.01 [facility] Comment on above: Order Comment: Speci men Type: BLOOD SPECIMENOrdering Facility: [facility] Address: [address] [place] [address] Performed By: #### 5 7021-8 ####[facility]ATORYCLIA [id number] [address] [place] Nucleated RBC/100 WBC (Bld) [Ratio] 0.0 /100 WBC Normal [facility] Comment on above: Order Comment: Speci men Type: BLOOD SPECIMENOrdering Facility: [facility] Address: [address] [place] [address] Performed By: #### 5 7021-8 ####[facility]ATORYCLIA [id number] [address] Platelet mean volume (Bld) [Entitic vol] 9.9 fL Normal 9.0-12.7 [facility] Comment on above: Order Comment: Speci men Type: BLOOD SPECIMENOrdering Facility: [facility] Address: [address] [place] [address] Performed By: #### 5 7021-8 ####[facility]ORATORYCLIA [id number] [place] [address] [place] Platelets (Bld) [#/Vol] 335 10*3/uL Normal 150-400 [facility] Comment on above: Order Comment: Speci men Type: BLOOD SPECIMENOrdering Facility: [facility] Address: [address] [place] [address] Performed By: #### 5 7021-8 ####[facility]ORATORYCLIA [id number] [address] [place] RBC (Bld) [#/Vol] 3.98 10*6/uL Low 4.20-6.00 [facility] Comment on above: Order Comment: Speci men Type: BLOOD SPECIMENOrdering Facility: [facility] Address: [address] [place] [address] Performed By: #### 5 7021-8 ####[facility]ORATORYCLIA [id number] [address] [place] WBC (Bld) [#/Vol] 12.55 10*3/uL High 3.70-11.00 [facility] Comment on above: Order Comment: Speci men Type: BLOOD SPECIMENOrdering Facility: [facility] Address: [address] [place] [address] Performed By: #### 5 7021-8 ####[facility]ORATORYCLIA [id number] [address] [place] CK CREATINE KINASEon 022 CK [Catalytic activity/Vol] 72 U/L Normal 51-298 [facility] Comment on above: Order Comment: Speci men Type: BLOOD SPECIMENOrdering Facility: [facility] Address: [address] [place] [address] Performed By: #### C Skip, 40076-8 ####[facility]ORATORYCLIA [id number] [address] [place] CONSULT PROGon 07-08-2021 CONSULT PROG Normal [facility] CONSULT PROG Normal [facility] CSF MANUAL DIFFon 07-08-2021 DIF TTL, CSF 3 cells counted Normal [facility] Comment on above: Order Comment: Speci men Type: CEREBROSPINAL FLUIDOrdering Facility: [facility] Address: [address] [place] [address] Performed By: #### 3 4563-7, [id number] ####[facility]ORATORYCLIA [id number] [place] [address] [place] LYMPH%, CSF 33 % Low 50-90 [facility] Comment on above: Order Comment: Speci men Type: CEREBROSPINAL FLUIDOrdering Facility: [facility] Address: [address] [place] [address] Performed By: #### 3 4563-7, [id number] ####[facility]ORATORYCLIA [id number] [place] [address] [place] MONO%, CSF 67 % High 10-50 [facility] Comment on above: Order Comment: Speci men Type: CEREBROSPINAL FLUIDOrdering Facility: [facility] Address: [address] [place] [address] Performed By: #### 3 4563-7, [id number] ####[facility]ORATORYCLIA [id number] [place] [address] [place] ABD/PEL W IVCONon 022 CT ABD/PEL W IVCON Normal [facility] CT BRAIN WO IVCONon 07-09-[address] BRAIN WO IVCON Normal [facility] CT BRAIN WO IVCON Normal [facility] CT CHEST W IVCON PEon 2021 CT CHEST W IVCON PE Normal [facility] Cell count panel (CSF)on Clarity (CSF) Clear Normal Clear [facility] Comment on above: Order Comment: Speci men Type: CEREBROSPINAL FLUIDOrdering Facility: [facility] Address: [address] [address] Performed By: #### 3 4563-7, [id number] ####[facility]ATORYCLIA [id number] [address] Clarity (Unsp spec) Clear Normal Clear [facility] Comment on above: Order Comment: Speci men Type: CEREBROSPINAL FLUIDOrdering Facility: [facility] Address: [address] [address] Performed By: #### 3 4563-7, [id number] ####[facility]ATORYCLIA [id number] [address] Color (CSF) Colorless Normal Colorless [facility] Comment on above: Order Comment: Speci men Type: CEREBROSPINAL FLUIDOrdering Facility: [facility] Address: [address] [address] Performed By: #### 3 4563-7, [id number] ####[facility]ATORYCLIA [id number] [address] Color (Spun CSF) Colorless Normal Colorless [facility] Comment on above: Order Comment: Speci men Type: CEREBROSPINAL FLUIDOrdering Facility: [facility] Address: [address] [address] Performed By: #### 3 4563-7, [id number] ####[facility]ATORYCLIA [id number] [address] CSF TUBE [employer] Normal [facility] Comment on above: Order Comment: Speci men Type: CEREBROSPINAL FLUIDOrdering Facility: [facility] Address: [address] [address] Performed By: #### 3 4563-7, [id number] ####[facility]ATORYCLIA [id number] [address] RBC Manual cnt (CSF) [#/Vol] 94 cells/uL High 0-5 [facility] Comment on above: Order Comment: Speci men Type: CEREBROSPINAL FLUIDOrdering Facility: [facility] Address: [address] [place] [address] Performed By: #### 3 4563-7, [id number] ####[facility]ORATORYCLIA [id number] [address] WBC Manual cnt (CSF) [#/Vol] 1 cells/uL Normal 0-5 [facility] Comment on above: Order Comment: Speci men Type: CEREBROSPINAL FLUIDOrdering Facility: [facility] Address: [address] [place] [address] Performed By: #### 3 4563-7, [id number] ####[facility]ORATORYCLIA [id number] [address] Comprehensive metabolic 2000 panelon 07-08-2021 Albumin [Mass/Vol] 3.6 g/dL Low 3.9-4.9 [facility] Comment on above: Order Comment: Speci men Type: BLOOD SPECIMENOrdering Facility: [facility] Address: [address] [place] [address] Performed By: #### Eileen Valdivia, 65862-2 ####[facility]ORATORYCLIA [id number] [address] ALP [Catalytic activity/Vol] 125 U/L High 38-113 [facility] Comment on above: Order Comment: Speci men Type: BLOOD SPECIMENOrdering Facility: [facility] Address: [address] [place] [address] Performed By: #### Eileen Valdivia, 46207-0 ####[facility]ORATORYCLIA [id number] [address] ALT With P-5'-P [Catalytic activity/Vol] 24 U/L Normal 10-54 [facility] Comment on above: Order Comment: Speci men Type: BLOOD SPECIMENOrdering Facility: [facility] Address: [address] [address] Performed By: #### Eileen Valdivia, 69397-7 ####[facility] LABORATORYCLIA [id number] [place] [address] [place] Anion gap [Moles/Vol] 16 mmol/L Normal 9-18 [facility] Comment on above: Order Comment: Speci men Type: BLOOD SPECIMENOrdering Facility: [facility] Address: [address] [place] [address] Performed By: #### Eileen Valdivia, 04631-2 ####[facility]ORATORYCLIA [id number] [place] [address] [place] AST With P-5'-P [Catalytic activity/Vol] 21 U/L Normal 14-40 [facility] Comment on above: Order Comment: Speci men Type: BLOOD SPECIMENOrdering Facility: [facility] Address: [address] [place] [address] Performed By: #### Eileen Valdivia, 97880-9 ####[facility]ORATORYCLIA [id number] [place] [address] [place] Bilirubin [Mass/Vol] 0.3 mg/dL Normal 0.2-1.3 [facility] Comment on above: Order Comment: Speci men Type: BLOOD SPECIMENOrdering Facility: [facility] Address: [address] [place] [address] Performed By: #### Eileen Valdivia, 24928-2 ####[facility]ORATORYCLIA [id number] [place] [address] [place] Calcium [Mass/Vol] 8.9 mg/dL Normal 8.5-10.2 [facility] Comment on above: Order Comment: Speci men Type: BLOOD SPECIMENOrdering Facility: [facility] Address: [address] [place] [address] Performed By: #### Eileen Valdivia, 87616-9 ####[facility]ORATORYCLIA [id number] [place] [address] [place] Chloride [Moles/Vol] 96 mmol/L Low 97-105 [facility] Comment on above: Order Comment: Speci men Type: BLOOD SPECIMENOrdering Facility: [facility] Address: [address] [place] [address] Performed By: #### Eileen Valdivia, 56721-0 ####[facility] LABORATORYCLIA [id number] [address] CO2 [Moles/Vol] 27 mmol/L Normal 22-30 [facility] Comment on above: Order Comment: Speci men Type: BLOOD SPECIMENOrdering Facility: [facility] Address: [address] [place] [address] Performed By: #### Eileen Valdivia, 73044-2 ####[facility] LABORATORYCLIA [id number] [address] Creatinine [Mass/Vol] 0.68 mg/dL Low 0.73-1.22 [facility] Comment on above: Order Comment: Speci men Type: BLOOD SPECIMENOrdering Facility: [facility] Address: [address] [place] [address] Performed By: #### Eileen Valdivia, 22966-8 ####[facility] LABORATORYCLIA [id number] [address] ESTIMATED GLOMERULAR FILTRATION RATE 101 mL/min/1.73m??? Normal >=60 [facility] Comment on above: Order Comment: Speci men Type: BLOOD SPECIMENOrdering Facility: [facility] Address: [address] [place] [address] Result Comment: Luzmaria mated Glomerular Filtration Rate [...] actual GFR. Performed By: #### Eileen Valdivia, 96799-5 ####[facility] LABORATORYCLIA [id number] [place] [address] [place] Glucose [Mass/Vol] 130 mg/dL High 74-99 [facility] Comment on above: Order Comment: Shira men Type: BLOOD SPECIMENOrdering Facility: [facility] Address: [address] [place] [address] Result Comment: The [place] Diabetes Association (ADA) provides guidance for cutoff [...] Standards of Medical Care in Diabetes 2016, [place] [employer]. Diabetes Care. 2016.39(Suppl 1). Performed By: #### Eileen Valdivia, 90922-6 ####[facility] LABORATORYCLIA [id number] [place] [address] [place] Potassium [Moles/Vol] 3.9 mmol/L Normal 3.7-5.1 [facility] Comment on above: Order Comment: Shira feldman Type: BLOOD SPECIMENOrdering Facility: [facility] Address: [address] [place] [address] Performed By: #### Eileen Valdivia, 53823-8 ####[facility] LABORATORYCLIA [id number] [place] [address] [place] Protein [Mass/Vol] 7.0 g/dL Normal 6.3-8.0 [facility] Comment on above: Order Comment: Shira feldman Type: BLOOD SPECIMENOrdering Facility: [facility] Address: [address] [place] [address] Performed By: #### Eileen Valdivia, 81196-5 ####[facility] LABORATORYCLIA [id number] [place] [address] [place] Sodium [Moles/Vol] 139 mmol/L Normal 136-144 [facility] Comment on above: Order Comment: Speci men Type: BLOOD SPECIMENOrdering Facility: [facility] Address: [address] [place] [address] Performed By: #### Eileen Valdivia, 82863-6 ####[facility]ORATORYCLIA [id number] [address] Urea nitrogen [Mass/Vol] 16 mg/dL Normal 9-24 [facility] Comment on above: Order Comment: Speci men Type: BLOOD SPECIMENOrdering Facility: [facility] Address: [address] [place] [address] Performed By: #### Eileen Valdivia, 54065-1 ####[facility]ORATORYCLIA [id number] [address] ED NOTEon 07-08-2021 ED NOTE HNO ID: [id number] Author: Lenora James RN Service: Emergency Medicine Author Type: Registered Nurse Type: ED Notes Filed: 07/08/2021 5:03 PM Note Text: Pt to OR with surgical team [facility] ED NOTE HNO ID: [id number] Author: Lenora James RN Service: Emergency Medicine Author Type: Registered Nurse Type: ED Notes Filed: 07/08/2021 4:50 PM Note Text: OR team to get pt [facility] ED NOTE HNO ID: [id number] Author: Lenora James RN Service: Emergency Medicine Author Type: Registered Nurse Type: ED Notes Filed: 07/08/2021 4:50 PM Note Text: Normal [facility] ED NOTE HNO ID: [id number] Author: Lenora James RN Service: Emergency Medicine Author Type: Registered Nurse Type: ED Notes Filed: 07/08/2021 4:50 PM Note Text: Spoke with presurg; pt to go to OR now [facility] ED NOTE HNO ID: [id number] Author: Lenora James RN Service: Emergency Medicine Author Type: Registered Nurse Type: ED Notes Filed: 07/08/2021 4:12 PM Note Text: Neurosurgery at beside [facility] ED NOTE HNO ID: [id number] Author: Lenora James RN Service: Emergency Medicine Author Type: Registered Nurse Type: ED Notes Filed: 07/08/2021 2:35 PM Note Text: respiratory aware of pt breathing treatments Normal [facility] ED NOTE HNO ID: [id number] Author: Lisa Woo RN Service: ? Author Type: Registered Nurse Type: ED Notes Filed: 07/08/2021 2:20 PM Note Text: Xray notified pt is ready. Normal [facility] ED NOTE HNO ID: [id number] Author: Lenora James RN Service: Emergency Medicine Author Type: Registered Nurse Type: ED Notes Filed: 07/08/2021 12:14 PM Note Text: CT notified regarding imaging orders placed Normal [facility] ED NOTE Normal [facility] ED PROV NOTEon 07-08-2021 ED PROV NOTE Normal [facility] Glucose CSF-mCncon Glucose (CSF) [Mass/Vol] 88 mg/dL High 40-70 [facility] Comment on above: Order Comment: Shira feldman Type: CEREBROSPINAL FLUIDOrdering Facility: [facility] Address: [address] [place], [place] [address] Result Comment: Lumb ar CSF glucose values of healthy patients are approximately 60% of the plasma values and must always be compared with a concurrently measured plasma value for adequate clinical interpretation.References: 1. Glucose HK (GLUC3) [package insert V 12.0 Bur[place]an]. [employer], [place], [place]. September 2015. 2. Michelle Moore, Loki, H. (2015). Chapter 7: Glucose and Lactate. F. Irina rose al.(eds.), Cerebrospinal Fluid in Clinical Neurology. Stewart: [employer]. Performed By: #### 2 880-3, 2342-4 ####[facility] LABORATORYCLIA [id number] [place] [address] [place] HIGH SENSITIVITY TROPONIN To n 07-08-2021 HIGH SENSITIVITY TAMIKO 27 ng/L High <12 [facility] Comment on above: Order Comment: Shira feldman Type: BLOOD SPECIMENOrdering Facility: [facility] Address: [address] [place] [address] Result Comment: When assessing risk for acute [...] day MACE. Performed By: #### H STNT ####[facility] LABORATORYCLIA [id number] [address] HIGH SENSITIVITY TAMIKO 36 ng/L High <12 [facility] Comment on above: Order Comment: Speci men Type: BLOOD SPECIMENOrdering Facility: [facility] Address: [address] [place] [address] Result Comment: When assessing risk for acute [...] day MACE. Performed By: #### H STNT ####[facility] LABORATORYCLIA [id number] [address] [place] HISTORY PHYSICALon HISTORY PHYSICAL Normal [facility] NURSING PROGon 07-08-2021 NURSING PROG Normal [facility] OPERATIVE NOon 07-08-2021 OPERATIVE NO Normal [facility] Prot CSF-mCncon 07-08-2021 Protein (CSF) [Mass/Vol] 33 mg/dL Normal 15-45 [facility] Comment on above: Order Comment: Speci men Type: CEREBROSPINAL FLUIDOrdering Facility: [facility] Address: [address] [place] [address] Performed By: #### 2 880-3, 2342-4 ####[facility] LABORATORYCLIA [id number] [place] [address] [place] SARS-CoV-2 RNA Resp Ql MEGAN+p robeon 07-08-2021 SARS-CoV-2 (COVID-19) RNA MEGAN+probe Ql (Resp) COVID 19 RESULT: SARS-CoV-2 (Agent of COVID-19) Not Detected by RT-PCR or equivalent method. This test has been authorized by FDA under an Emergency Use Authorization (EUA). Normal [facility] Comment on above: Performed By: #### 9 4500-6 ####[facility] LABORATORYCLIA [id number] [address] STAPH AUREUS PCRon 2 S. aureus and MRSA panel MEGAN+probe (Nose) Normal Negative [facility] Comment on above: Order Comment: Speci men Type: SWAB OF INTERNAL NOSEOrdering Facility: [facility] Address: [address] [place] [address] Result Comment: Nega tive for Staphylococcus aureus by PCR.Negative for MRSA by PCR Performed By: #### S APCR ####[facility] HE[facility] SERVICESCLIA [id number] [address] Urinalysis complete panel (U )on 07-08-2021 Bacteria LM.HPF (Urine sed) [#/Area] Few Abnormal None Seen [facility] Comment on above: Order Comment: Speci men Type: URINE SPECIMENOrdering Facility: [facility] Address: [address] [place] [address] Performed By: #### 2 4356-8 ####[facility] LABORATORYCLIA [id number] [address] [place] Bilirubin Ql (U) Negative Normal Negative [facility] Comment on above: Order Comment: Speci men Type: URINE SPECIMENOrdering Facility: [facility] Address: [address] [place] [address] Performed By: #### 2 4356-8 ####[facility] LABORATORYCLIA [id number] [address] STATES [facility] Clarity (Unsp spec) Turbid Abnormal Clear [facility] Comment on above: Order Comment: Speci men Type: URINE SPECIMENOrdering Facility: [facility] Address: [address] [place] [address] Performed By: #### 2 4356-8 ####[facility]ORATORYCLIA [id number] [address] Color (U) Light Yellow Normal yellow [facility] Comment on above: Order Comment: Speci men Type: URINE SPECIMENOrdering Facility: [facility] Address: [address] [place] [address] Performed By: #### 2 4356-8 ####[facility]ORATORYCLIA [id number] [address] Glucose Test strip (U) [Mass/Vol] Negative Normal Negative [facility] Comment on above: Order Comment: Speci men Type: URINE SPECIMENOrdering Facility: [facility] Address: [address] [place] [address] Performed By: #### 2 4356-8 ####[facility] LABORATORYCLIA [id number] [address] STATES OF [facility] Hemoglobin Ql (U) Negative Normal Negative [facility] Comment on above: Order Comment: Speci men Type: URINE SPECIMENOrdering Facility: [facility] Address: [address] [place] [address] Performed By: #### 2 4356-8 ####[facility]ORATORYCLIA [id number] [address] [place] Hyaline casts (Urine sed) [#/Area] 1-3 /LPF Abnormal 0 /LPF [facility] Comment on above: Order Comment: Speci men Type: URINE SPECIMENOrdering Facility: [facility] Address: [address] [place] [address] Performed By: #### 2 4356-8 ####[facility]ORATORYCLIA [id number] [address] Ketones Ql (U) Negative Normal Negative [facility] Comment on above: Order Comment: Speci men Type: URINE SPECIMENOrdering Facility: [facility] Address: [address] [place] [address] Performed By: #### 2 4356-8 ####[facility]ORATORYCLIA [id number] [address] Leukocyte esterase Test strip Ql (U) Negative Normal Negative [facility] Comment on above: Order Comment: Speci men Type: URINE SPECIMENOrdering Facility: [facility] Address: [address] [place] [address] Performed By: #### 2 4356-8 ####[facility]ORATORYCLIA [id number] [address] Nitrite Ql (U) Negative Normal Negative [facility] Comment on above: Order Comment: Speci men Type: URINE SPECIMENOrdering Facility: [facility] Address: [address] [place] [address] Performed By: #### 2 4356-8 ####[facility]ORATORYCLIA [id number] [address] pH (U) 5.0 [pH] Normal 5.0-8.0 [facility] Comment on above: Order Comment: Speci men Type: URINE SPECIMENOrdering Facility: [facility] Address: [address] [place] [address] Performed By: #### 2 4356-8 ####[facility]ORATORYCLIA [id number] [address] Protein (U) [Mass/Vol] Negative Normal Negative [facility] Comment on above: Order Comment: Speci men Type: URINE SPECIMENOrdering Facility: [facility] Address: [address] [place] [address] Performed By: #### 2 4356-8 ####[facility]ORATORYCLIA [id number] [address] RBC LM.HPF (Urine sed) [#/Area] 11-25 /HPF Abnormal 0-3 /HPF [facility] Comment on above: Order Comment: Speci men Type: URINE SPECIMENOrdering Facility: [facility] Address: [address] [address] Performed By: #### 2 4356-8 ####[facility]ORATORYCLIA [id number] [address] Specific gravity (U) [Rel density] 1.018 Normal 1.005-1.030 [facility] Comment on above: Order Comment: Speci men Type: URINE SPECIMENOrdering Facility: [facility] Address: [address] [place] [address] Performed By: #### 2 4356-8 ####[facility]ORATORYCLIA [id number] [address] Urobilinogen Ql (U) Normal Normal Negative [facility] Comment on above: Order Comment: Speci men Type: URINE SPECIMENOrdering Facility: [facility] Address: [address] [place] [address] Performed By: #### 2 4356-8 ####[facility] LABORATORYCLIA [id number] [address] STATES [facility] WBC LM.HPF (Urine sed) [#/Area] /[HPF] Abnormal 0-5 /HPF [facility] Comment on above: Order Comment: Speci men Type: URINE SPECIMENOrdering Facility: [facility] Address: [address] [place] [address] Performed By: #### 2 4356-8 ####[facility]ORATORYCLIA [id number] [address] [place] Vancomycin random [Mass/Vol] on 07-08-2021 Vancomycin [Mass/Vol] 31.0 ug/mL High 10.0-20.0 [facility] Comment on above: Order Comment: Speci men Type: BLOOD SPECIMENOrdering Facility: [facility] Address: [address] [place] [address] Result Comment: Refe rence ranges and high/low indicator flags are provided as general guidelines only. The treating physician must determine appropriate target levels/dosing based on the specific clinical situation. Performed By: #### 4 091-5 ####[facility]ORATORYCLIA [id number] [place] [address] [place] [facility] XR ABD 2V SUPINE W UPR/DECUB /CTLon 07-08-2021 XR ABD 2V SUPINE W UPR/DECUB/CTL Normal [facility] XR CHEST 1V FRONTALon 2021 XR CHEST 1V FRONTAL Normal [facility] XR CHEST 1V FRONTAL Normal [facility] XR NECK SOFT TISSUE 2V AP/LA Ton 07-08-2021 XR NECK SOFT TISSUE 2V AP/LAT Normal [facility] XR SKULL 2V AP/LATon 022 XR SKULL 2V AP/LAT Normal [facility] HISTORY PHYSICALon HISTORY PHYSICAL HNO ID: [id number] Author: Amy Beltran MD Service: ? Author Type: Physician Type: HANDP Filed: 06/30/2021 6:42 PM Note Text: Connected Care Unit History and Physical Facility: [facility] Level of Care: Skilled Admission Date: June [...] Modafinil for ROSALINO Monitor mental status. Amy Johnschriss Prognosis: Rehab potential: Fair I have reviewed [...] regarding the above plan. Total time spent mawp-ie-ioxh and/or counseling and coordinating care on the skilled care unit for patient was approximately 45 minutes SUBJECTIVE (HISTORY) Chief Complaint: Confusion, infection, blood clot. Andrew Sifuentes is being seen today for long term facility (SNF) admission AND management of weakness, tube feed, infected retroperitoneal infection and seizure. HPI: This is a 71 year old male who presents from [facility] with primary admitting diagnosis of Seizure, [...] CT brain concerning for hydrocephalus. Tip of BLOW MOLD OPERATOR shunt was found to be in [...] Status: Fu (more content not included)... Normal [facility] Basic metabolic 2000 panelon 06-28-2021 Anion gap [Moles/Vol] 7 mmol/L Low 9-18 [facility] Comment on above: Order Comment: Shira feldman Type: BLOOD SPECIMENOrdering Facility: [facility] Address: [address] [id number] Performed By: #### 2 432-2, ####[facility]ORATORYCLIA [id number] [place] [address] [place] Calcium [Mass/Vol] 8.8 mg/dL Normal 8.5-10.2 [facility] Comment on above: Order Comment: Shira feldman Type: BLOOD SPECIMENOrdering Facility: [facility] Address: [address] [place] [address] Performed By: #### 2 4321-2, ####[facility]ORATORYCLIA [id number] [address] [place] Chloride [Moles/Vol] 103 mmol/L Normal 97-105 [facility] Comment on above: Order Comment: Speci men Type: BLOOD SPECIMENOrdering Facility: [facility] Address: [address] [place] [address] Performed By: #### 2 4321-2, ####[facility]ORATORYCLIA [id number] [place] [address] [place] CO2 [Moles/Vol] 28 mmol/L Normal 22-30 [facility] Comment on above: Order Comment: Speci men Type: BLOOD SPECIMENOrdering Facility: [facility] Address: [address] [place] [address] Performed By: #### 2 43212, ####[facility]ORATORYCLIA [id number] [address] STATES OF [facility] Creatinine [Mass/Vol] 0.57 mg/dL Low 0.73-1.22 [facility] Comment on above: Order Comment: Speci men Type: BLOOD SPECIMENOrdering Facility: [facility] Address: [address] [place] [address] Performed By: #### 2 4321-2, ####[facility]ORATORYCLIA [id number] [place] [address] [place] GFR/1.73 sq M.predicted MDRD (S/P/Bld) [Vol rate/Area] mL/min/{1.73_m2} Normal [facility] Comment on above: Order Comment: Speci men Type: BLOOD SPECIMENOrdering Facility: [facility] Address: [address] [place] [address] Result Comment: >60e GFR (Estimated GFR) Units [...] actual GFR. Performed By: #### 2 43205-08, ####[facility]ORATORYCLIA [id number] [place] [address] [place] Glucose [Mass/Vol] 120 mg/dL High 74-99 [facility] Comment on above: Order Comment: Shira feldman Type: BLOOD SPECIMENOrdering Facility: [facility] Address: [address] [address] Result Comment: The [place] Diabetes [employer] (ADA) provides guidance for cutoff [...] Standards of Medical Care in Diabetes 2016, [place] [employer]. Diabetes Care. 2016.39(Suppl 1). Performed By: #### 2 4320-06, ####[facility]ORATORYCLIA [id number] [place] [address] [place] Potassium [Moles/Vol] 3.8 mmol/L Normal 3.7-5.1 [facility] Comment on above: Order Comment: Shira feldman Type: BLOOD SPECIMENOrdering Facility: [facility] Address: [address] [phone] Performed By: #### 2 4320-06, ####[facility]ORATORYCLIA [id number] [place] [address] [place] Sodium [Moles/Vol] 138 mmol/L Normal 136-144 [facility] Comment on above: Order Comment: Speci men Type: BLOOD SPECIMENOrdering Facility: [facility] Address: [address] [place] [address] Performed By: #### 2 4321-2, ####[facility]ORATORYCLIA [id number] [address] STATES OF [facility] Urea nitrogen [Mass/Vol] 24 mg/dL Normal 9-24 [facility] Comment on above: Order Comment: Speci men Type: BLOOD SPECIMENOrdering Facility: [facility] Address: [address] [place] [address] Performed By: #### 2 432-2, ####[facility]ORATORYCLIA [id number] [address] CASE MANAGEMon 06-28-2021 CASE MANAGEM Normal [facility] CBC panel Auto (Bld)on 06-28 Erythrocyte distribution width (RBC) [Ratio] 15.6 % High 11.5-15.0 [facility] Comment on above: Order Comment: Speci men Type: BLOOD SPECIMENOrdering Facility: [facility] Address: [address] [place] [address] Performed By: #### 5 8410-2 ####[facility] LABORATORYCLIA [id number] [address] STATES OF [facility] Hematocrit (Bld) [Volume fraction] 30.5 % Low 39.0-51.0 [facility] Comment on above: Order Comment: Speci men Type: BLOOD SPECIMENOrdering Facility: [facility] Address: [address] [place] [address] Performed By: #### 5 8410-2 ####[facility]ORATORYCLIA [id number] [address] [place] Hemoglobin (Bld) [Mass/Vol] 9.4 g/dL Low 13.0-17.0 [facility] Comment on above: Order Comment: Speci men Type: BLOOD SPECIMENOrdering Facility: [facility] Address: [address] [place] [address] Performed By: #### 5 8410-2 ####[facility]ORATORYCLIA [id number] [address] MCH (RBC) [Entitic mass] 27.8 pg Normal 26.0-34.0 [facility] Comment on above: Order Comment: Speci men Type: BLOOD SPECIMENOrdering Facility: [facility] Address: [address] [place] [address] Performed By: #### 5 8410-2 ####[facility]ORATORYCLIA [id number] [address] MCHC (RBC) [Mass/Vol] 30.8 g/dL Normal 30.5-36.0 [facility] Comment on above: Order Comment: Speci men Type: BLOOD SPECIMENOrdering Facility: [facility] Address: [address] [place] [address] Performed By: #### 5 8410-2 ####[facility]ORATORYCLIA [id number] [address] MCV (RBC) [Entitic vol] 90.2 fL Normal 80.0-100.0 [facility] Comment on above: Order Comment: Speci men Type: BLOOD SPECIMENOrdering Facility: [facility] Address: [address] [place] [address] Performed By: #### 5 8410-2 ####[facility] LABORATORYCLIA [id number] [address] Nucleated RBC (Bld) [#/Vol] 10*3/uL Normal <0.01 [facility] Comment on above: Order Comment: Speci men Type: BLOOD SPECIMENOrdering Facility: [facility] Address: [address] [place] [address] Performed By: #### 5 8410-2 ####[facility] LABORATORYCLIA [id number] [place] [address] [place] Platelet mean volume (Bld) [Entitic vol] 9.9 fL Normal 9.0-12.7 [facility] Comment on above: Order Comment: Speci men Type: BLOOD SPECIMENOrdering Facility: [facility] Address: [address] [place] [address] Performed By: #### 5 8410-2 ####[facility] LABORATORYCLIA [id number] [place] [address] [place] Platelets (Bld) [#/Vol] 333 10*3/uL Normal 150-400 [facility] Comment on above: Order Comment: Speci men Type: BLOOD SPECIMENOrdering Facility: [facility] Address: [address] [place] [address] Performed By: #### 5 8410-2 ####[facility] LABORATORYCLIA [id number] [place] [address] [place] RBC (Bld) [#/Vol] 3.38 10*6/uL Low 4.20-6.00 [facility] Comment on above: Order Comment: Speci men Type: BLOOD SPECIMENOrdering Facility: [facility] Address: [address] [place] [address] Performed By: #### 5 8410-2 ####[facility] LABORATORYCLIA [id number] [address] [place] WBC (Bld) [#/Vol] 9.71 10*3/uL Normal 3.70-11.00 [facility] Comment on above: Order Comment: Speci men Type: BLOOD SPECIMENOrdering Facility: [facility] Address: [address] [place] [address] Performed By: #### 5 8410-2 ####[facility] LABORATORYCLIA [id number] [address] [place] CNDSon 06-28-2021 CNDS Normal [facility] CONSULT PROGon 06-28-2021 CONSULT PROG Normal [facility] Magnesium SerPl-mCncon 06-28 Magnesium [Mass/Vol] 2.2 mg/dL Normal 1.7-2.3 [facility] Comment on above: Order Comment: Speci men Type: BLOOD SPECIMENOrdering Facility: [facility] Address: [address] [place] [address] Performed By: #### 2 432-2, ####[facility] LABORATORYCLIA [id number] [address] OF [facility] Vancomycin random [Mass/Vol] on 06-28-2021 Vancomycin [Mass/Vol] 23.0 ug/mL High 10.0-20.0 [facility] Comment on above: Order Comment: Speci men Type: BLOOD SPECIMENOrdering Facility: [facility] Address: [address] [place] [address] Result Comment: Refe rence ranges and high/low indicator flags are provided as general guidelines only. The treating physician must determine appropriate target levels/dosing based on the specific clinical situation. Performed By: #### 4 091-5 ####[facility] LABORATORYCLIA [id number] [address] [place] ALLIED HEALTHon 06-27-2021 ALLIED HEALTH Normal [facility] Basic metabolic 2000 panelon 06-27-2021 Anion gap [Moles/Vol] 10 mmol/L Normal 9-18 [facility] Comment on above: Order Comment: Speci men Type: BLOOD SPECIMENOrdering Facility: [facility] Address: [address] [place] [address] Performed By: #### 2 4320-06, ####[facility] LABORATORYCLIA [id number] [address] [place] Calcium [Mass/Vol] 8.8 mg/dL Normal 8.5-10.2 [facility] Comment on above: Order Comment: Speci men Type: BLOOD SPECIMENOrdering Facility: [facility] Address: [address] [place] [address] Performed By: #### 2 4322, ####[facility] LABORATORYCLIA [id number] [place] [address] [place] Chloride [Moles/Vol] 104 mmol/L Normal 97-105 [facility] Comment on above: Order Comment: Speci men Type: BLOOD SPECIMENOrdering Facility: [facility] Address: [address] [place] [address] Performed By: #### 2 4321-2, ####[facility] LABORATORYCLIA [id number] [place] [address] [place] CO2 [Moles/Vol] 26 mmol/L Normal 22-30 [facility] Comment on above: Order Comment: Speci men Type: BLOOD SPECIMENOrdering Facility: [facility] Address: [address] [place] [address] Performed By: #### 2 4321-2, ####[facility] LABORATORYCLIA [id number] [address] [place] Creatinine [Mass/Vol] 0.57 mg/dL Low 0.73-1.22 [facility] Comment on above: Order Comment: Speci men Type: BLOOD SPECIMENOrdering Facility: [facility] Address: [address] [place] [address] Performed By: #### 2 432-2, ####[facility] LABORATORYCLIA [id number] [address] [place] GFR/1.73 sq M.predicted MDRD (S/P/Bld) [Vol rate/Area] mL/min/{1.73_m2} Normal [facility] Comment on above: Order Comment: Speci men Type: BLOOD SPECIMENOrdering Facility: [facility] Address: [address] [place] [address] Result Comment: >60e GFR (Estimated GFR) Units [...] actual GFR. Performed By: #### 2 4320-06, ####[facility] LABORATORYCLIA [id number] [place] [address] [place] Glucose [Mass/Vol] 133 mg/dL High 74-99 [facility] Comment on above: Order Comment: Shira men Type: BLOOD SPECIMENOrdering Facility: [facility] Address: [address] [place], [place] [phone] Result Comment: The [place] [employer] (ADA) provides guidance for cutoff [...] Standards of Medical Care in Diabetes 2016, [place] [employer]. Diabetes Care. 2016.39(Suppl 1). Performed By: #### 2 4320-06, ####[facility] LABORATORYCLIA [id number] [place] [address] [place] Potassium [Moles/Vol] 4.2 mmol/L Normal 3.7-5.1 [facility] Comment on above: Order Comment: Shira feldman Type: BLOOD SPECIMENOrdering Facility: [facility] Address: [address] [place] [address] Performed By: #### 2 4320-06, ####[facility] LABORATORYCLIA [id number] [place] [id number] [place] Sodium [Moles/Vol] 140 mmol/L Normal 136-144 [facility] Comment on above: Order Comment: Speci men Type: BLOOD SPECIMENOrdering Facility: [facility] Address: [address] [place] [address] Performed By: #### 2 4321-2, 02128-7 ####[facility] LABORATORYCLIA [id number] [address] [place] Urea nitrogen [Mass/Vol] 24 mg/dL Normal 9-24 [facility] Comment on above: Order Comment: Speci men Type: BLOOD SPECIMENOrdering Facility: [facility] Address: [address] [place] [address] Performed By: #### 2 4321-2, 00243-5 ####[facility] LABORATORYCLIA [id number] [address] OF [facility] CASE MANAGEMon 06-27-2021 CASE MANAGEM Normal [facility] CBC panel Auto (Bld)on 06-27 Erythrocyte distribution width (RBC) [Ratio] 15.8 % High 11.5-15.0 [facility] Comment on above: Order Comment: Speci men Type: BLOOD SPECIMENOrdering Facility: [facility] Address: [address] [place] [address] Performed By: #### 5 8410-2 ####[facility] LABORATORYCLIA [id number] [address] [place] Hematocrit (Bld) [Volume fraction] 31.4 % Low 39.0-51.0 [facility] Comment on above: Order Comment: Speci men Type: BLOOD SPECIMENOrdering Facility: [facility] Address: [address] [place] [address] Performed By: #### 5 8410-2 ####[facility] LABORATORYCLIA [id number] [address] [place] Hemoglobin (Bld) [Mass/Vol] 9.3 g/dL Low 13.0-17.0 [facility] Comment on above: Order Comment: Speci men Type: BLOOD SPECIMENOrdering Facility: [facility] Address: [address] [place] [address] Performed By: #### 5 8410-2 ####[facility] LABORATORYCLIA [id number] [address] MCH (RBC) [Entitic mass] 27.0 pg Normal 26.0-34.0 [facility] Comment on above: Order Comment: Speci men Type: BLOOD SPECIMENOrdering Facility: [facility] Address: [address] [place] [address] Performed By: #### 5 8410-2 ####[facility] LABORATORYCLIA [id number] [address] MCHC (RBC) [Mass/Vol] 29.6 g/dL Low 30.5-36.0 [facility] Comment on above: Order Comment: Speci men Type: BLOOD SPECIMENOrdering Facility: [facility] Address: [address] [place] [address] Performed By: #### 5 8410-2 ####[facility] LABORATORYCLIA [id number] [address] MCV (RBC) [Entitic vol] 91.3 fL Normal 80.0-100.0 [facility] Comment on above: Order Comment: Speci men Type: BLOOD SPECIMENOrdering Facility: [facility] Address: [address] [place] [address] Performed By: #### 5 8410-2 ####[facility] LABORATORYCLIA [id number] [address] Nucleated RBC (Bld) [#/Vol] 10*3/uL Normal <0.01 [facility] Comment on above: Order Comment: Speci men Type: BLOOD SPECIMENOrdering Facility: [facility] Address: [address] [place] [address] Performed By: #### 5 8410-2 ####[facility] LABORATORYCLIA [id number] [address] Platelet mean volume (Bld) [Entitic vol] 10.3 fL Normal 9.0-12.7 [facility] Comment on above: Order Comment: Speci men Type: BLOOD SPECIMENOrdering Facility: [facility] Address: [address] [place] [address] Performed By: #### 5 8410-2 ####[facility] LABORATORYCLIA [id number] [address] OF [facility] Platelets (Bld) [#/Vol] 359 10*3/uL Normal 150-400 [facility] Comment on above: Order Comment: Speci men Type: BLOOD SPECIMENOrdering Facility: [facility] Address: [address] [place] [address] Performed By: #### 5 8410-2 ####[facility] LABORATORYCLIA [id number] [address] [place] RBC (Bld) [#/Vol] 3.44 10*6/uL Low 4.20-6.00 [facility] Comment on above: Order Comment: Speci men Type: BLOOD SPECIMENOrdering Facility: [facility] Address: [address] [place] [address] Performed By: #### 5 8410-2 ####[facility] LABORATORYCLIA [id number] [address] STATES OF [facility] WBC (Bld) [#/Vol] 10.73 10*3/uL Normal 3.70-11.00 [facility] Comment on above: Order Comment: Speci men Type: BLOOD SPECIMENOrdering Facility: [facility] Address: [address] [place] [address] Performed By: #### 5 8410-2 ####[facility] LABORATORYCLIA [id number] [address] Magnesium SerPl-mCncon 06-27 Magnesium [Mass/Vol] 2.2 mg/dL Normal 1.7-2.3 [facility] Comment on above: Order Comment: Speci men Type: BLOOD SPECIMENOrdering Facility: [facility] Address: [address] [place] [address] Performed By: #### 2 4321-2, 87225-4 ####[facility] LABORATORYCLIA [id number] [place] [address] [place] NT-proBNP SerPl-mCncon 06-27 Natriuretic peptide.B prohormone N-Terminal [Mass/Vol] 184 pg/mL High <125 [facility] Comment on above: Order Comment: Speci men Type: BLOOD SPECIMENOrdering Facility: [facility] Address: [address] [place] [address] Performed By: #### 3 3762-6 ####[facility] LABORATORYCLIA [id number] [place] [address] [place] NUTRITIONon 06-27-2021 NUTRITION Normal [facility] THERAPY NTon 06-27-2021 THERAPY NT Normal [facility] THERAPY NT Normal [facility] XR CHEST 1V FRONTALon 2021 XR CHEST 1V FRONTAL Normal [facility] Basic metabolic 2000 panelon 06-26-2021 Anion gap [Moles/Vol] 9 mmol/L Normal 9-18 [facility] Comment on above: Order Comment: Speci men Type: BLOOD SPECIMENOrdering Facility: [facility] Address: [address] [place] [address] Performed By: #### 1 9123-9, 31345-1 ####[facility] LABORATORYCLIA [id number] [place] [address] [place] Calcium [Mass/Vol] 8.7 mg/dL Normal 8.5-10.2 [facility] Comment on above: Order Comment: Speci men Type: BLOOD SPECIMENOrdering Facility: [facility] Address: [address] [place] [address] Performed By: #### 1 9123-9, 09583-9 ####[facility] LABORATORYCLIA [id number] [place] [address] [place] Chloride [Moles/Vol] 105 mmol/L Normal 97-105 [facility] Comment on above: Order Comment: Speci men Type: BLOOD SPECIMENOrdering Facility: [facility] Address: [address] [place] [address] Performed By: #### 1 9123-9, 24941-3 ####[facility] LABORATORYCLIA [id number] [address] [place] CO2 [Moles/Vol] 26 mmol/L Normal 22-30 [facility] Comment on above: Order Comment: Speci men Type: BLOOD SPECIMENOrdering Facility: [facility] Address: [address] [place] [address] Performed By: #### 1 9123-9, 13542-5 ####[facility] LABORATORYCLIA [id number] [address] [place] Creatinine [Mass/Vol] 0.56 mg/dL Low 0.73-1.22 [facility] Comment on above: Order Comment: Speci men Type: BLOOD SPECIMENOrdering Facility: [facility] Address: [address] [place] [address] Performed By: #### 1 9123-9, 39930-3 ####[facility] LABORATORYCLIA [id number] [address] [place] GFR/1.73 sq M.predicted MDRD (S/P/Bld) [Vol rate/Area] mL/min/{1.73_m2} Normal [facility] Comment on above: Order Comment: Speci men Type: BLOOD SPECIMENOrdering Facility: [facility] Address: [address] [place] [address] Result Comment: >60e GFR (Estimated GFR) Units [...] actual GFR. Performed By: #### 1 9123-9, 74513-7 ####[facility] LABORATORYCLIA [id number] [place] [address] [place] Glucose [Mass/Vol] 134 mg/dL High 74-99 [facility] Comment on above: Order Comment: Speci men Type: BLOOD SPECIMENOrdering Facility: [facility] Address: [address] [place] [address] Result Comment: The [place] [employer] (ADA) provides guidance for cutoff [...] Standards of Medical Care in Diabetes 2016, [place] [employer]. Diabetes Care. 2016.39(Suppl 1). Performed By: #### 1 9123-9, 80454-5 ####[facility] LABORATORYCLIA [id number] [place] [address] [place] Potassium [Moles/Vol] 3.8 mmol/L Normal 3.7-5.1 [facility] Comment on above: Order Comment: Johni men Type: BLOOD SPECIMENOrdering Facility: [facility] Address: [address] [place] [address] Performed By: #### 1 9123-9, 96292-4 ####[facility] LABORATORYCLIA [id number] [place] [address] [place] Sodium [Moles/Vol] 140 mmol/L Normal 136-144 [facility] Comment on above: Order Comment: Speci men Type: BLOOD SPECIMENOrdering Facility: [facility] Address: [address] [place] [address] Performed By: #### 1 91239, 96764-1 ####[facility] LABORATORYCLIA [id number] [address] [place] Urea nitrogen [Mass/Vol] 24 mg/dL Normal 9-24 [facility] Comment on above: Order Comment: Speci men Type: BLOOD SPECIMENOrdering Facility: [facility] Address: [address] [place] [address] Performed By: #### 1 9123-9, 32654-4 ####[facility] LABORATORYCLIA [id number] [address] CBC panel Auto (Bld)on 06-26 Erythrocyte distribution width (RBC) [Ratio] 15.9 % High 11.5-15.0 [facility] Comment on above: Order Comment: Speci men Type: BLOOD SPECIMENOrdering Facility: [facility] Address: [address] [place] [address] Performed By: #### 5 8410-2 ####[facility] LABORATORYCLIA [id number] [address] STATES [facility] Hematocrit (Bld) [Volume fraction] 29.8 % Low 39.0-51.0 [facility] Comment on above: Order Comment: Speci men Type: BLOOD SPECIMENOrdering Facility: [facility] Address: [address] [place] [address] Performed By: #### 5 8410-2 ####[facility] LABORATORYCLIA [id number] [address] STATES OF [facility] Hemoglobin (Bld) [Mass/Vol] 9.1 g/dL Low 13.0-17.0 [facility] Comment on above: Order Comment: Speci men Type: BLOOD SPECIMENOrdering Facility: [facility] Address: [address] [place] [address] Performed By: #### 5 8410-2 ####[facility] LABORATORYCLIA [id number] [address] [place] MCH (RBC) [Entitic mass] 27.8 pg Normal 26.0-34.0 [facility] Comment on above: Order Comment: Speci men Type: BLOOD SPECIMENOrdering Facility: [facility] Address: [address] [place] [address] Performed By: #### 5 8410-2 ####[facility] LABORATORYCLIA [id number] [address] MCHC (RBC) [Mass/Vol] 30.5 g/dL Normal 30.5-36.0 [facility] Comment on above: Order Comment: Speci men Type: BLOOD SPECIMENOrdering Facility: [facility] Address: [address] [place] [address] Performed By: #### 5 8410-2 ####[facility] LABORATORYCLIA [id number] [address] [place] MCV (RBC) [Entitic vol] 91.1 fL Normal 80.0-100.0 [facility] Comment on above: Order Comment: Speci men Type: BLOOD SPECIMENOrdering Facility: [facility] Address: [address] [place] [address] Performed By: #### 5 8410-2 ####[facility] LABORATORYCLIA [id number] [address] Nucleated RBC (Bld) [#/Vol] 10*3/uL Normal <0.01 [facility] Comment on above: Order Comment: Speci men Type: BLOOD SPECIMENOrdering Facility: [facility] Address: [address] [place] [address] Performed By: #### 5 8410-2 ####[facility] LABORATORYCLIA [id number] [address] Platelet mean volume (Bld) [Entitic vol] 10.3 fL Normal 9.0-12.7 [facility] Comment on above: Order Comment: Speci men Type: BLOOD SPECIMENOrdering Facility: [facility] Address: [address] [place] [address] Performed By: #### 5 8410-2 ####[facility] LABORATORYCLIA [id number] [address] Platelets (Bld) [#/Vol] 336 10*3/uL Normal 150-400 [facility] Comment on above: Order Comment: Speci men Type: BLOOD SPECIMENOrdering Facility: [facility] Address: [address] [place] [address] Performed By: #### 5 8410-2 ####[facility] LABORATORYCLIA [id number] [address] OF [facility] RBC (Bld) [#/Vol] 3.27 10*6/uL Low 4.20-6.00 [facility] Comment on above: Order Comment: Speci men Type: BLOOD SPECIMENOrdering Facility: [facility] Address: [address] [place] [address] Performed By: #### 5 8410-2 ####[facility] LABORATORYCLIA [id number] [address] WBC (Bld) [#/Vol] 9.14 10*3/uL Normal 3.70-11.00 [facility] Comment on above: Order Comment: Speci men Type: BLOOD SPECIMENOrdering Facility: [facility] Address: [address] [place] [address] Performed By: #### 5 8410-2 ####[facility] LABORATORYCLIA [id number] [address] CONSULT PROGon 06-26-2021 CONSULT PROG Normal [facility] Magnesium SerPl-mCncon 06-26 Magnesium [Mass/Vol] 2.2 mg/dL Normal 1.7-2.3 [facility] Comment on above: Order Comment: Speci men Type: BLOOD SPECIMENOrdering Facility: [facility] Address: [address] [place] [address] Performed By: #### 1 9123-9, 26736-2 ####[facility] LABORATORYCLIA [id number] [address] NURSING PROGon 06-26-2021 NURSING PROG Normal [facility] NURSING PROG Normal [facility] Basic metabolic 2000 panelon 06-25-2021 Anion gap [Moles/Vol] 8 mmol/L Low 9-18 [facility] Comment on above: Order Comment: Speci men Type: BLOOD SPECIMENOrdering Facility: [facility] Address: [address] [place] [address] Performed By: #### 2 4321-2, ####[facility] LABORATORYCLIA [id number] [place] [address] [place] Calcium [Mass/Vol] 8.8 mg/dL Normal 8.5-10.2 [facility] Comment on above: Order Comment: Speci men Type: BLOOD SPECIMENOrdering Facility: [facility] Address: [address] [place] [address] Performed By: #### 2 2, ####[facility] LABORATORYCLIA [id number] [place] [address] [place] Chloride [Moles/Vol] 105 mmol/L Normal 97-105 [facility] Comment on above: Order Comment: Speci men Type: BLOOD SPECIMENOrdering Facility: [facility] Address: [address] [place] [address] Performed By: #### 2 2, ####[facility] LABORATORYCLIA [id number] [place] [address] [place] CO2 [Moles/Vol] 27 mmol/L Normal 22-30 [facility] Comment on above: Order Comment: Speci men Type: BLOOD SPECIMENOrdering Facility: [facility] Address: [address] [place] [address] Performed By: #### 2 2, ####[facility] LABORATORYCLIA [id number] [place] [address] [place] Creatinine [Mass/Vol] 0.59 mg/dL Low 0.73-1.22 [facility] Comment on above: Order Comment: Shira feldman Type: BLOOD SPECIMENOrdering Facility: [facility] Address: [address] [place] [phone] Performed By: #### 2 4321-2, ####[facility] LABORATORYCLIA [id number] [place] [address] [place] GFR/1.73 sq M.predicted MDRD (S/P/Bld) [Vol rate/Area] mL/min/{1.73_m2} Normal [facility] Comment on above: Order Comment: [facility] Type: BLOOD SPECIMENOrdering Facility: [facility] Address: [address] [phone] Result Comment: >60e GFR (Estimated GFR) Units [...] actual GFR. Performed By: #### 2 4321-2, ####[facility] LABORATORYCLIA [id number] [place] [address] [place] Glucose [Mass/Vol] 132 mg/dL High 74-99 [facility] Comment on above: Order Comment: Johncara feldman Type: BLOOD SPECIMENOrdering Facility: [facility] Address: [address] [phone] Result Comment: The [place] [employer] (ADA) provides guidance for cutoff [...] Standards of Medical Care in Diabetes 2016, [place] [employer]. Diabetes Care. 2016.39(Suppl 1). Performed By: #### 2 4320-2, ####[facility] LABORATORYCLIA [id number] [address] STATES OF [facility] Potassium [Moles/Vol] 3.9 mmol/L Normal 3.7-5.1 [facility] Comment on above: Order Comment: Shira feldman Type: BLOOD SPECIMENOrdering Facility: [facility] Address: [address] [place] [address] Performed By: #### 2 4320-06, ####[facility] LABORATORYCLIA [id number] [address] STATES [facility] Sodium [Moles/Vol] 140 mmol/L Normal 136-144 [facility] Comment on above: Order Comment: Shira feldman Type: BLOOD SPECIMENOrdering Facility: [facility] Address: [address] [place] [address] Performed By: #### 2 4320-06, ####[facility] LABORATORYCLIA [id number] [address] STATES [facility] Urea nitrogen [Mass/Vol] 24 mg/dL Normal 9-24 [facility] Comment on above: Order Comment: Shira feldman Type: BLOOD SPECIMENOrdering Facility: [facility] Address: [address] [place] [address] Performed By: #### 2 4320-06, ####[facility] LABORATORYCLIA [id number] [address] [place] CASE MANAGEMon 06-25-2021 CASE MANAGEM Normal [facility] CBC panel Auto (Bld)on 06-25 Erythrocyte distribution width (RBC) [Ratio] 15.9 % High 11.5-15.0 [facility] Comment on above: Order Comment: Speci men Type: BLOOD SPECIMENOrdering Facility: [facility] Address: [address] [place] [address] Performed By: #### 5 8410-2 ####[facility] LABORATORYCLIA [id number] [address] Hematocrit (Bld) [Volume fraction] 31.0 % Low 39.0-51.0 [facility] Comment on above: Order Comment: Speci men Type: BLOOD SPECIMENOrdering Facility: [facility] Address: [address] [place] [address] Performed By: #### 5 8410-2 ####[facility] LABORATORYCLIA [id number] [address] Hemoglobin (Bld) [Mass/Vol] 9.4 g/dL Low 13.0-17.0 [facility] Comment on above: Order Comment: Speci men Type: BLOOD SPECIMENOrdering Facility: [facility] Address: [address] [place] [address] Performed By: #### 5 8410-2 ####[facility] LABORATORYCLIA [id number] [address] MCH (RBC) [Entitic mass] 28.1 pg Normal 26.0-34.0 [facility] Comment on above: Order Comment: Speci men Type: BLOOD SPECIMENOrdering Facility: [facility] Address: [address] [place] [address] Performed By: #### 5 8410-2 ####[facility] LABORATORYCLIA [id number] [address] [place] MCHC (RBC) [Mass/Vol] 30.3 g/dL Low 30.5-36.0 [facility] Comment on above: Order Comment: Speci men Type: BLOOD SPECIMENOrdering Facility: [facility] Address: [address] [place] [address] Performed By: #### 5 8410-2 ####[facility] LABORATORYCLIA [id number] [place] [address] MCV (RBC) [Entitic vol] 92.5 fL Normal 80.0-100.0 [facility] Comment on above: Order Comment: Speci men Type: BLOOD SPECIMENOrdering Facility: [facility] Address: [address] [place] [address] Performed By: #### 5 8410-2 ####[facility] LABORATORYCLIA [id number] [address] OF [facility] Nucleated RBC (Bld) [#/Vol] 10*3/uL Normal <0.01 [facility] Comment on above: Order Comment: Speci men Type: BLOOD SPECIMENOrdering Facility: [facility] Address: [address] [place] [address] Performed By: #### 5 8410-2 ####[facility] LABORATORYCLIA [id number] [address] OF [facility] Platelet mean volume (Bld) [Entitic vol] 10.5 fL Normal 9.0-12.7 [facility] Comment on above: Order Comment: Speci men Type: BLOOD SPECIMENOrdering Facility: [facility] Address: [address] [place] [address] Performed By: #### 5 8410-2 ####[facility] LABORATORYCLIA [id number] [address] Platelets (Bld) [#/Vol] 311 10*3/uL Normal 150-400 [facility] Comment on above: Order Comment: Speci men Type: BLOOD SPECIMENOrdering Facility: [facility] Address: [address] [place] [address] Performed By: #### 5 8410-2 ####[facility] LABORATORYCLIA [id number] [address] OF [place] RBC (Bld) [#/Vol] 3.35 10*6/uL Low 4.20-6.00 [facility] Comment on above: Order Comment: Speci men Type: BLOOD SPECIMENOrdering Facility: [facility] Address: [address] [place] [address] Performed By: #### 5 8410-2 ####[facility] LABORATORYCLIA [id number] [place] [address] [place] WBC (Bld) [#/Vol] 9.57 10*3/uL Normal 3.70-11.00 [facility] Comment on above: Order Comment: Speci men Type: BLOOD SPECIMENOrdering Facility: [facility] Address: [address] [place] [address] Performed By: #### 5 8410-2 ####[facility] LABORATORYCLIA [id number] [address] OF [place] Magnesium SerPl-mCncon 06-25 Magnesium [Mass/Vol] 2.4 mg/dL High 1.7-2.3 [facility] Comment on above: Order Comment: Speci men Type: BLOOD SPECIMENOrdering Facility: [facility] Address: [address] [place] [address] Performed By: #### 2 4321-2, 89579-1 ####[facility] LABORATORYCLIA [id number] [address] OF [place] Basic metabolic 2000 panelon 06-24-2021 Anion gap [Moles/Vol] 9 mmol/L Normal 9-18 [facility] Comment on above: Order Comment: Speci men Type: BLOOD SPECIMENOrdering Facility: [facility] Address: [address] [place] [address] Performed By: #### 1 9123-9, 55982-7 ####[facility] LABORATORYCLIA [id number] [address] STATES OF [facility] Calcium [Mass/Vol] 8.6 mg/dL Normal 8.5-10.2 [facility] Comment on above: Order Comment: Speci men Type: BLOOD SPECIMENOrdering Facility: [facility] Address: [address] [place] [address] Performed By: #### 1 9123-9, 46492-7 ####[facility] LABORATORYCLIA [id number] [place] [address] [place] Chloride [Moles/Vol] 103 mmol/L Normal 97-105 [facility] Comment on above: Order Comment: Speci men Type: BLOOD SPECIMENOrdering Facility: [facility] Address: [address] [place] [address] Performed By: #### 1 9123-9, 05408-6 ####[facility] LABORATORYCLIA [id number] [address] [place] CO2 [Moles/Vol] 26 mmol/L Normal 22-30 [facility] Comment on above: Order Comment: Speci men Type: BLOOD SPECIMENOrdering Facility: [facility] Address: [address] [place] [address] Performed By: #### 1 9123-9, 14951-9 ####[facility] LABORATORYCLIA [id number] [address] [place] Creatinine [Mass/Vol] 0.60 mg/dL Low 0.73-1.22 [facility] Comment on above: Order Comment: Speci men Type: BLOOD SPECIMENOrdering Facility: [facility] Address: [address] [place] [address] Performed By: #### 1 9123-9, 65604-3 ####[facility] LABORATORYCLIA [id number] [address] [place] GFR/1.73 sq M.predicted MDRD (S/P/Bld) [Vol rate/Area] mL/min/{1.73_m2} Normal [facility] Comment on above: Order Comment: Speci men Type: BLOOD SPECIMENOrdering Facility: [facility] Address: [address] [place] [address] Result Comment: >60e GFR (Estimated GFR) Units [...] actual GFR. Performed By: #### 1 9123-9, 31158-1 ####[facility] LABORATORYCLIA [id number] [place] [address] [place] Glucose [Mass/Vol] 126 mg/dL High 74-99 [facility] Comment on above: Order Comment: Shira feldman Type: BLOOD SPECIMENOrdering Facility: [facility] Address: [address] [place], [place] [address] Result Comment: The [place] [employer] (ADA) provides guidance for cutoff [...] Standards of Medical Care in Diabetes 2016, [place] [employer]. Diabetes Care. 2016.39(Suppl 1). Performed By: #### 1 9123-9, 06990-9 ####[facility] LABORATORYCLIA [id number] [place] [address] [place] Potassium [Moles/Vol] 3.9 mmol/L Normal 3.7-5.1 [facility] Comment on above: Order Comment: Shira feldman Type: BLOOD SPECIMENOrdering Facility: [facility] Address: [address] [place] [address] Performed By: #### 1 9123-9, 58940-6 ####[facility] LABORATORYCLIA [id number] [place] [address] [place] Sodium [Moles/Vol] 138 mmol/L Normal 136-144 [facility] Comment on above: Order Comment: Speci men Type: BLOOD SPECIMENOrdering Facility: [facility] Address: [address] [place] [address] Performed By: #### 1 9123-9, 74469-8 ####[facility] LABORATORYCLIA [id number] [address] [place] Urea nitrogen [Mass/Vol] 24 mg/dL Normal 9-24 [facility] Comment on above: Order Comment: Speci men Type: BLOOD SPECIMENOrdering Facility: [facility] Address: [address] [place] [address] Performed By: #### 1 9123-9, 83912-6 ####[facility] LABORATORYCLIA [id number] [address] CASE MANAGEMon 06-24-2021 CASE MANAGEM Normal [facility] CASE MANAGEM Normal [facility] CASE MANAGEM Normal [facility] CBC panel Auto (Bld)on 06-24 Erythrocyte distribution width (RBC) [Ratio] 16.1 % High 11.5-15.0 [facility] Comment on above: Order Comment: Speci men Type: BLOOD SPECIMENOrdering Facility: [facility] Address: [address] [place] [address] Performed By: #### 5 8410-2 ####[facility] LABORATORYCLIA [id number] [address] STATES OF [facility] Hematocrit (Bld) [Volume fraction] 31.7 % Low 39.0-51.0 [facility] Comment on above: Order Comment: Speci men Type: BLOOD SPECIMENOrdering Facility: [facility] Address: [address] [place] [address] Performed By: #### 5 8410-2 ####[facility] LABORATORYCLIA [id number] [address] [place] Hemoglobin (Bld) [Mass/Vol] 9.7 g/dL Low 13.0-17.0 [facility] Comment on above: Order Comment: Speci men Type: BLOOD SPECIMENOrdering Facility: [facility] Address: [address] [place] [address] Performed By: #### 5 8410-2 ####[facility] LABORATORYCLIA [id number] [address] MCH (RBC) [Entitic mass] 28.0 pg Normal 26.0-34.0 [facility] Comment on above: Order Comment: Speci men Type: BLOOD SPECIMENOrdering Facility: [facility] Address: [address] [place] [address] Performed By: #### 5 8410-2 ####[facility] LABORATORYCLIA [id number] [address] MCHC (RBC) [Mass/Vol] 30.6 g/dL Normal 30.5-36.0 [facility] Comment on above: Order Comment: Speci men Type: BLOOD SPECIMENOrdering Facility: [facility] Address: [address] [place] [address] Performed By: #### 5 8410-2 ####[facility] LABORATORYCLIA [id number] [address] MCV (RBC) [Entitic vol] 91.4 fL Normal 80.0-100.0 [facility] Comment on above: Order Comment: Speci men Type: BLOOD SPECIMENOrdering Facility: [facility] Address: [address] [place] [address] Performed By: #### 5 8410-2 ####[facility] LABORATORYCLIA [id number] [address] Nucleated RBC (Bld) [#/Vol] 10*3/uL Normal <0.01 [facility] Comment on above: Order Comment: Speci men Type: BLOOD SPECIMENOrdering Facility: [facility] Address: [address] [place] [address] Performed By: #### 5 8410-2 ####[facility] LABORATORYCLIA [id number] [address] Platelet mean volume (Bld) [Entitic vol] 11.0 fL Normal 9.0-12.7 [facility] Comment on above: Order Comment: Speci men Type: BLOOD SPECIMENOrdering Facility: [facility] Address: [address] [place] [address] Performed By: #### 5 8410-2 ####[facility] LABORATORYCLIA [id number] [address] [place] Platelets (Bld) [#/Vol] 358 10*3/uL Normal 150-400 [facility] Comment on above: Order Comment: Speci men Type: BLOOD SPECIMENOrdering Facility: [facility] Address: [address] [place] [address] Performed By: #### 5 8410-2 ####[facility] LABORATORYCLIA [id number] [place] [address] [place] RBC (Bld) [#/Vol] 3.47 10*6/uL Low 4.20-6.00 [facility] Comment on above: Order Comment: Speci men Type: BLOOD SPECIMENOrdering Facility: [facility] Address: [address] [place] [address] Performed By: #### 5 8410-2 ####[facility] LABORATORYCLIA [id number] [address] [place] WBC (Bld) [#/Vol] 10.07 10*3/uL Normal 3.70-11.00 [facility] Comment on above: Order Comment: Speci men Type: BLOOD SPECIMENOrdering Facility: [facility] Address: [address] [place] [address] Performed By: #### 5 8410-2 ####[facility] LABORATORYCLIA [id number] [address] Magnesium SerPl-mCncon 06-24 Magnesium [Mass/Vol] 2.3 mg/dL Normal 1.7-2.3 [facility] Comment on above: Order Comment: Speci men Type: BLOOD SPECIMENOrdering Facility: [facility] Address: [address] [place] [address] Performed By: #### 1 9123-9, 32212-2 ####[facility] LABORATORYCLIA [id number] [place] [address] [place] ALLIED HEALTHon 06-23-2021 ALLIED HEALTH Normal [facility] Basic metabolic 2000 panelon 06-23-2021 Anion gap [Moles/Vol] 9 mmol/L Normal 9-18 [facility] Comment on above: Order Comment: Speci men Type: BLOOD SPECIMENOrdering Facility: [facility] Address: [address] [place] [address] Performed By: #### 1 9123-9, 40430-2 ####[facility] LABORATORYCLIA [id number] [place] [address] [place] Calcium [Mass/Vol] 8.4 mg/dL Low 8.5-10.2 [facility] Comment on above: Order Comment: Speci men Type: BLOOD SPECIMENOrdering Facility: [facility] Address: [address] [place] [address] Performed By: #### 1 9123-9, 41050-8 ####[facility] LABORATORYCLIA [id number] [place] [address] [place] Chloride [Moles/Vol] 104 mmol/L Normal 97-105 [facility] Comment on above: Order Comment: Speci men Type: BLOOD SPECIMENOrdering Facility: [facility] Address: [address] [place] [address] Performed By: #### 1 9123-9, 02574-2 ####[facility] LABORATORYCLIA [id number] [place] [address] [place] CO2 [Moles/Vol] 26 mmol/L Normal 22-30 [facility] Comment on above: Order Comment: Speci men Type: BLOOD SPECIMENOrdering Facility: [facility] Address: [address] [place] [address] Performed By: #### 1 9123-9, 55297-9 ####[facility] HE[facility] SERVICESCLIA [id number] [place] [id number] [place] Creatinine [Mass/Vol] 0.62 mg/dL Low 0.73-1.22 [facility] Comment on above: Order Comment: Shira feldman Type: BLOOD SPECIMENOrdering Facility: [facility] Address: [address] [place] [address] Performed By: #### 1 9123-9, 12728-7 ####[facility] SERVICESCLIA [id number] [place] [id number] [place] GFR/1.73 sq M.predicted MDRD (S/P/Bld) [Vol rate/Area] mL/min/{1.73_m2} Normal [facility] Comment on above: Order Comment: [facility] Type: BLOOD SPECIMENOrdering Facility: [facility] Address: [address] [place] [address] Result Comment: >60e GFR (Estimated GFR) Units [...] actual GFR. Performed By: #### 1 9123-9, 79297-8 ####[facility] LABORATORYCLIA [id number] [place] [address] [place] Glucose [Mass/Vol] 111 mg/dL High 74-99 [facility] Comment on above: Order Comment: Shira feldman Type: BLOOD SPECIMENOrdering Facility: [facility] Address: [address] [place] [address] Result Comment: The [place] [employer] (ADA) provides guidance for cutoff [...] Standards of Medical Care in Diabetes 2016, [place] [employer]. Diabetes Care. 2016.39(Suppl 1). Performed By: #### 1 9123-9, 96996-8 ####[facility] LABORATORYCLIA [id number] [place] [address] [place] Potassium [Moles/Vol] 4.1 mmol/L Normal 3.7-5.1 [facility] Comment on above: Order Comment: Shira feldman Type: BLOOD SPECIMENOrdering Facility: [facility] Address: [address] [place] [address] Performed By: #### 1 91239, 41482-1 ####[facility] LABORATORYCLIA [id number] [place] [address] [place] Sodium [Moles/Vol] 139 mmol/L Normal 136-144 [facility] Comment on above: Order Comment: Shira feldman Type: BLOOD SPECIMENOrdering Facility: [facility] Address: [address] [place] [address] Performed By: #### 1 91239, 79214-8 ####[facility] LABORATORYCLIA [id number] [place] [address] [place] Urea nitrogen [Mass/Vol] 26 mg/dL High 9-24 [facility] Comment on above: Order Comment: Shira feldman Type: BLOOD SPECIMENOrdering Facility: [facility] Address: [address] [place] [address] Performed By: #### 1 9123-9, 46886-1 ####[facility] LABORATORYCLIA [id number] [address] [place] CASE MANAGEMon 06-23-2021 CASE MANAGEM Normal [facility] CBC panel Auto (Bld)on 06-23 Erythrocyte distribution width (RBC) [Ratio] 16.0 % High 11.5-15.0 [facility] Comment on above: Order Comment: Speci men Type: BLOOD SPECIMENOrdering Facility: [facility] Address: [address] [place] [address] Performed By: #### 5 8410-2 ####[facility] LABORATORYCLIA [id number] [address] Hematocrit (Bld) [Volume fraction] 31.1 % Low 39.0-51.0 [facility] Comment on above: Order Comment: Speci men Type: BLOOD SPECIMENOrdering Facility: [facility] Address: [address] [place] [address] Performed By: #### 5 8410-2 ####[facility] LABORATORYCLIA [id number] [address] OF [facility] Hemoglobin (Bld) [Mass/Vol] 9.5 g/dL Low 13.0-17.0 [facility] Comment on above: Order Comment: Speci men Type: BLOOD SPECIMENOrdering Facility: [facility] Address: [address] [place] [address] Performed By: #### 5 8410-2 ####[facility] LABORATORYCLIA [id number] [address] STATES [facility] MCH (RBC) [Entitic mass] 28.1 pg Normal 26.0-34.0 [facility] Comment on above: Order Comment: Speci men Type: BLOOD SPECIMENOrdering Facility: [facility] Address: [address] [place] [address] Performed By: #### 5 8410-2 ####[facility] LABORATORYCLIA [id number] [address] [place] MCHC (RBC) [Mass/Vol] 30.5 g/dL Normal 30.5-36.0 [facility] Comment on above: Order Comment: Speci men Type: BLOOD SPECIMENOrdering Facility: [facility] Address: [address] [place] [address] Performed By: #### 5 8410-2 ####[facility] LABORATORYCLIA [id number] [address] MCV (RBC) [Entitic vol] 92.0 fL Normal 80.0-100.0 [facility] Comment on above: Order Comment: Speci men Type: BLOOD SPECIMENOrdering Facility: [facility] Address: [address] [place] [address] Performed By: #### 5 8410-2 ####[facility] LABORATORYCLIA [id number] [address] Nucleated RBC (Bld) [#/Vol] 10*3/uL Normal <0.01 [facility] Comment on above: Order Comment: Speci men Type: BLOOD SPECIMENOrdering Facility: [facility] Address: [address] [place] [address] Performed By: #### 5 8410-2 ####[facility] LABORATORYCLIA [id number] [address] Platelet mean volume (Bld) [Entitic vol] 11.0 fL Normal 9.0-12.7 [facility] Comment on above: Order Comment: Speci men Type: BLOOD SPECIMENOrdering Facility: [facility] Address: [address] [place], [place] [id number] Performed By: #### 5 8410-2 ####[facility] LABORATORYCLIA [id number] [address] Platelets (Bld) [#/Vol] 361 10*3/uL Normal 150-400 [facility] Comment on above: Order Comment: Speci men Type: BLOOD SPECIMENOrdering Facility: [facility] Address: [address] [place] [address] Performed By: #### 5 8410-2 ####[facility] LABORATORYCLIA [id number] [address] RBC (Bld) [#/Vol] 3.38 10*6/uL Low 4.20-6.00 [facility] Comment on above: Order Comment: Speci men Type: BLOOD SPECIMENOrdering Facility: [facility] Address: [address] [place] [address] Performed By: #### 5 8410-2 ####[facility] LABORATORYCLIA [id number] [address] OF [facility] WBC (Bld) [#/Vol] 9.02 10*3/uL Normal 3.70-11.00 [facility] Comment on above: Order Comment: Speci men Type: BLOOD SPECIMENOrdering Facility: [facility] Address: [address] [place] [address] Performed By: #### 5 8410-2 ####[facility] LABORATORYCLIA [id number] [address] CONSULT PROGon 06-23-2021 CONSULT PROG Normal [facility] CONSULT PROG Normal [facility] Magnesium SerPl-mCncon 06-23 Magnesium [Mass/Vol] 2.4 mg/dL High 1.7-2.3 [facility] Comment on above: Order Comment: Speci men Type: BLOOD SPECIMENOrdering Facility: [facility] Address: [address] [place] [address] Performed By: #### 1 9123-9, 40958-9 ####[facility] LABORATORYCLIA [id number] [address] [place] THERAPY NTon 06-23-2021 THERAPY NT Normal [facility] Vancomycin random [Mass/Vol] on 06-23-2021 Vancomycin [Mass/Vol] 22.8 ug/mL High 10.0-20.0 [facility] Comment on above: Order Comment: Speci men Type: BLOOD SPECIMENOrdering Facility: [facility] Address: [address] [place] [address] Result Comment: Refe rence ranges and high/low indicator flags are provided as general guidelines only. The treating physician must determine appropriate target levels/dosing based on the specific clinical situation. Performed By: #### 4 091-5 ####[facility] LABORATORYCLIA [id number] [place] [address] [place] XR MOD BARIUM SWALLOW W SPEE Lore 06-23-2021 XR MOD BARIUM SWALLOW W SPEECH Normal [facility] Basic metabolic 2000 panelon 06-22-2021 Anion gap [Moles/Vol] 6 mmol/L Low 9-18 [facility] Comment on above: Order Comment: Speci men Type: BLOOD SPECIMENOrdering Facility: [facility] Address: [address] [place] [address] Performed By: #### 2 432-2, ####[facility] LABORATORYCLIA [id number] [place] [address] [place] Calcium [Mass/Vol] 8.5 mg/dL Normal 8.5-10.2 [facility] Comment on above: Order Comment: Speci men Type: BLOOD SPECIMENOrdering Facility: [facility] Address: [address] [place] [address] Performed By: #### 2 4320-2, ####[facility] LABORATORYCLIA [id number] [place] [address] [place] Chloride [Moles/Vol] 105 mmol/L Normal 97-105 [facility] Comment on above: Order Comment: Speci men Type: BLOOD SPECIMENOrdering Facility: [facility] Address: [address] [address] Performed By: #### 2 4321-2, ####[facility] LABORATORYCLIA [id number] [place] [address] [place] CO2 [Moles/Vol] 26 mmol/L Normal 22-30 [facility] Comment on above: Order Comment: Speci men Type: BLOOD SPECIMENOrdering Facility: [facility] Address: [address] [address] Performed By: #### 2 432-2, ####[facility] SERVICESCLIA [id number] [place] [id number] [place] Creatinine [Mass/Vol] 0.56 mg/dL Low 0.73-1.22 [facility] Comment on above: Order Comment: Shira francia Type: BLOOD SPECIMENOrdering Facility: [facility] Address: [address] [address] Performed By: #### 2 43205-08, ####[facility] [facility]ATORYCLIA [id number] [place] [address] [place] GFR/1.73 sq M.predicted MDRD (S/P/Bld) [Vol rate/Area] mL/min/{1.73_m2} Normal [facility] Comment on above: Order Comment: [facility] Type: BLOOD SPECIMENOrdering Facility: [facility] Address: [address] [place] [address] Result Comment: >60e GFR (Estimated GFR) Units [...] actual GFR. Performed By: #### 2 4322, ####[facility]ORATORYCLIA [id number] [place] [address] [place] Glucose [Mass/Vol] 120 mg/dL High 74-99 [facility] Comment on above: Order Comment: Shira feldman Type: BLOOD SPECIMENOrdering Facility: [facility] Address: [address] [address] Result Comment: The [place] [employer] (ADA) provides guidance for cutoff [...] Standards of Medical Care in Diabetes 2016, [place] [employer]. Diabetes Care. 2016.39(Suppl 1). Performed By: #### 2 4320-06, ####[facility]ATORYCLIA [id number] [place] [address] [place] Potassium [Moles/Vol] 4.0 mmol/L Normal 3.7-5.1 [facility] Comment on above: Order Comment: Shira feldman Type: BLOOD SPECIMENOrdering Facility: [facility] Address: [address] [place] [address] Performed By: #### 2 ####[facility]ORATORYCLIA [id number] [address] [place] Sodium [Moles/Vol] 137 mmol/L Normal 136-144 [facility] Comment on above: Order Comment: Shira feldman Type: BLOOD SPECIMENOrdering Facility: [facility] Address: [address] [place] [address] Performed By: #### 2 ####[facility]ORATORYCLIA [id number] [address] [place] Urea nitrogen [Mass/Vol] 25 mg/dL High 9-24 [facility] Comment on above: Order Comment: Shira feldman Type: BLOOD SPECIMENOrdering Facility: [facility] Address: [address] [place] [address] Performed By: #### 2 ####[facility]ORATORYCLIA [id number] [address] [place] CASE MANAGEMon 06-22-2021 CASE MANAGEM Normal [facility] CBC panel Auto (Bld)on 06-22 Erythrocyte distribution width (RBC) [Ratio] 16.0 % High 11.5-15.0 [facility] Comment on above: Order Comment: Speci men Type: BLOOD SPECIMENOrdering Facility: [facility] Address: [address] [place] [address] Performed By: #### 5 8410-2 ####[facility]ORATORYCLIA [id number] [address] Hematocrit (Bld) [Volume fraction] 30.5 % Low 39.0-51.0 [facility] Comment on above: Order Comment: Speci men Type: BLOOD SPECIMENOrdering Facility: [facility] Address: [address] [place] [address] Performed By: #### 5 8410-2 ####[facility]ORATORYCLIA [id number] [address] OF [facility] Hemoglobin (Bld) [Mass/Vol] 9.3 g/dL Low 13.0-17.0 [facility] Comment on above: Order Comment: Speci men Type: BLOOD SPECIMENOrdering Facility: [facility] Address: [address] [place] [address] Performed By: #### 5 8410-2 ####[facility]ATORYCLIA [id number] [address] [place] MCH (RBC) [Entitic mass] 28.4 pg Normal 26.0-34.0 [facility] Comment on above: Order Comment: Speci men Type: BLOOD SPECIMENOrdering Facility: [facility] Address: [address] [place] [address] Performed By: #### 5 8410-2 ####[facility]ATORYCLIA [id number] [address] [place] MCHC (RBC) [Mass/Vol] 30.5 g/dL Normal 30.5-36.0 [facility] Comment on above: Order Comment: Speci men Type: BLOOD SPECIMENOrdering Facility: [facility] Address: [address] [address] Performed By: #### 5 8410-2 ####[facility]ATORYCLIA [id number] [address] MCV (RBC) [Entitic vol] 93.3 fL Normal 80.0-100.0 [facility] Comment on above: Order Comment: Speci men Type: BLOOD SPECIMENOrdering Facility: [facility] Address: [address] [address] Performed By: #### 5 8410-2 ####[facility]ATORYCLIA [id number] [address] Nucleated RBC (Bld) [#/Vol] 10*3/uL Normal <0.01 [facility] Comment on above: Order Comment: Speci men Type: BLOOD SPECIMENOrdering Facility: [facility] Address: [address] [place] [address] Performed By: #### 5 8410-2 ####[facility]ATORYCLIA [id number] [address] Platelet mean volume (Bld) [Entitic vol] 11.5 fL Normal 9.0-12.7 [facility] Comment on above: Order Comment: Speci men Type: BLOOD SPECIMENOrdering Facility: [facility] Address: [address] [address] Performed By: #### 5 8410-2 ####[facility]ATORYCLIA [id number] [address] Platelets (Bld) [#/Vol] 346 10*3/uL Normal 150-400 [facility] Comment on above: Order Comment: Speci men Type: BLOOD SPECIMENOrdering Facility: [facility] Address: [address] [place] [address] Performed By: #### 5 8410-2 ####[facility]ATORYCLIA [id number] [address] RBC (Bld) [#/Vol] 3.27 10*6/uL Low 4.20-6.00 [facility] Comment on above: Order Comment: Speci men Type: BLOOD SPECIMENOrdering Facility: [facility] Address: [address] [place] [address] Performed By: #### 5 8410-2 ####[facility]ATORYCLIA [id number] [address] [place] WBC (Bld) [#/Vol] 9.44 10*3/uL Normal 3.70-11.00 [facility] Comment on above: Order Comment: Speci men Type: BLOOD SPECIMENOrdering Facility: [facility] Address: [address] [place] [address] Performed By: #### 5 8410-2 ####[facility]ATORYCLIA [id number] [address] HEMOGLOBIN (HGB)on 2 Hemoglobin (Bld) [Mass/Vol] 9.7 g/dL Low 13.0-17.0 [facility] Comment on above: Order Comment: Speci men Type: BLOOD SPECIMENOrdering Facility: [facility] Address: [address] [place] [address] Performed By: #### H GB ####[facility]ORATORYCLIA [id number] [address] Magnesium SerPl-mCncon 06-22 Magnesium [Mass/Vol] 2.4 mg/dL High 1.7-2.3 [facility] Comment on above: Order Comment: Speci men Type: BLOOD SPECIMENOrdering Facility: [facility] Address: [address] [place] [address] Performed By: #### 2 4321-2, 41932-4 ####[facility]ATORYCLIA [id number] [address] [place] THERAPY NTon 06-22-2021 THERAPY NT Normal [facility] THERAPY NT Normal [facility] aPTT PPPon 06-22-2021 aPTT Coag (PPP) [Time] 62.3 s High 23.0-32.4 [facility] Comment on above: Order Comment: Speci men Type: BLOOD SPECIMENOrdering Facility: [facility] Address: [address] [place] [address] Performed By: #### 1 4979-9 ####[facility]ATORYCLIA [id number] [place] [address] [place] ALLIED HEALTHon 06-21-2021 ALLIED HEALTH Normal [facility] Basic metabolic 2000 panelon 06-21-2021 Anion gap [Moles/Vol] 8 mmol/L Low 9-18 [facility] Comment on above: Order Comment: Speci men Type: BLOOD SPECIMENOrdering Facility: [facility] Address: [address] [place] [address] Performed By: #### 2 4321-2, 86160-4 ####[facility]ATORYCLIA [id number] [place] [address] [place] Calcium [Mass/Vol] 8.2 mg/dL Low 8.5-10.2 [facility] Comment on above: Order Comment: Speci men Type: BLOOD SPECIMENOrdering Facility: [facility] Address: [address] [place] [address] Performed By: #### 2 4321-2, ####[facility]ATORYCLIA [id number] [place] [address] [place] Chloride [Moles/Vol] 108 mmol/L High 97-105 [facility] Comment on above: Order Comment: Speci men Type: BLOOD SPECIMENOrdering Facility: [facility] Address: [address] [place] [address] Performed By: #### 2 4321-2, ####[facility]ATORYCLIA [id number] [place] [address] [place] CO2 [Moles/Vol] 24 mmol/L Normal 22-30 [facility] Comment on above: Order Comment: Speci men Type: BLOOD SPECIMENOrdering Facility: [facility] Address: [address] [address] Performed By: #### 2 43205-08, ####[facility]ATORYCLIA [id number] [place] [address] [place] Creatinine [Mass/Vol] 0.61 mg/dL Low 0.73-1.22 [facility] Comment on above: Order Comment: Speci men Type: BLOOD SPECIMENOrdering Facility: [facility] Address: [address] [address] Performed By: #### 2 43205-08, ####[facility] HE[facility] SERVICESCLIA [id number] [address] [place] GFR/1.73 sq M.predicted MDRD (S/P/Bld) [Vol rate/Area] mL/min/{1.73_m2} Normal [facility] Comment on above: Order Comment: Johncara feldman Type: BLOOD SPECIMENOrdering Facility: [facility] Address: [address] [place] [address] Result Comment: >60e GFR (Estimated GFR) Units [...] actual GFR. Performed By: #### 2 43205-08, ####[facility]ATORYCLIA [id number] [address] [place] Glucose [Mass/Vol] 211 mg/dL High 74-99 [facility] Comment on above: Order Comment: Shira feldman Type: BLOOD SPECIMENOrdering Facility: [facility] Address: [address] Result Comment: The [place] [employer] (ADA) provides guidance for cutoff [...] Standards of Medical Care in Diabetes 2016, [place] [employer]. Diabetes Care. 2016.39(Suppl 1). Performed By: #### 2 4320-06, ####[facility]ATORYCLIA [id number] [place] [address] [place] Potassium [Moles/Vol] 4.3 mmol/L Normal 3.7-5.1 [facility] Comment on above: Order Comment: Shira feldman Type: BLOOD SPECIMENOrdering Facility: [facility] Address: [address] [address] Performed By: #### 2 ####[facility]ATORYCLIA [id number] [place] [address] [place] Sodium [Moles/Vol] 140 mmol/L Normal 136-144 [facility] Comment on above: Order Comment: Shira feldman Type: BLOOD SPECIMENOrdering Facility: [facility] Address: [address] [address] Performed By: #### 2 4320-06, ####[facility]ATORYCLIA [id number] [place] [address] [place] Urea nitrogen [Mass/Vol] 26 mg/dL High 9-24 [facility] Comment on above: Order Comment: Shira feldman Type: BLOOD SPECIMENOrdering Facility: [facility] Address: [address] [address] Performed By: #### 2 4320-06, ####[facility]ATORYCLIA [id number] [address] STATES OF [facility] CBC panel Auto (Bld)on 06-21 Erythrocyte distribution width (RBC) [Ratio] 16.1 % High 11.5-15.0 [facility] Comment on above: Order Comment: Speci men Type: BLOOD SPECIMENOrdering Facility: [facility] Address: [address] [place] [address] Performed By: #### 5 8410-2 ####[facility]ATORYCLIA [id number] [address] Hematocrit (Bld) [Volume fraction] 29.7 % Low 39.0-51.0 [facility] Comment on above: Order Comment: Speci men Type: BLOOD SPECIMENOrdering Facility: [facility] Address: [address] [place] [address] Performed By: #### 5 8410-2 ####[facility]ORYCLIA [id number] [address] Hemoglobin (Bld) [Mass/Vol] 9.2 g/dL Low 13.0-17.0 [facility] Comment on above: Order Comment: Speci men Type: BLOOD SPECIMENOrdering Facility: [facility] Address: [address] [place] [address] Performed By: #### 5 8410-2 ####[facility]ORYCLIA [id number] [address] [place] MCH (RBC) [Entitic mass] 28.8 pg Normal 26.0-34.0 [facility] Comment on above: Order Comment: Speci men Type: BLOOD SPECIMENOrdering Facility: [facility] Address: [address] [place] [address] Performed By: #### 5 8410-2 ####[facility]ORYCLIA [id number] [address] [place] MCHC (RBC) [Mass/Vol] 31.0 g/dL Normal 30.5-36.0 [facility] Comment on above: Order Comment: Speci men Type: BLOOD SPECIMENOrdering Facility: [facility] Address: [facility] [address] Performed By: #### 5 8410-2 ####[facility]ORYCLIA [id number] [address] STATES OF [facility] MCV (RBC) [Entitic vol] 93.1 fL Normal 80.0-100.0 [facility] Comment on above: Order Comment: Speci men Type: BLOOD SPECIMENOrdering Facility: [facility] Address: [address] [place], [place] [address] Performed By: #### 5 8410-2 ####[facility]ORYCLIA [id number] [address] [place] Nucleated RBC (Bld) [#/Vol] 10*3/uL Normal <0.01 [facility] Comment on above: Order Comment: Speci men Type: BLOOD SPECIMENOrdering Facility: [facility] Address: [address] [place], [place] [address] Performed By: #### 5 8410-2 ####[facility]ORYCLIA [id number] [address] Platelet mean volume (Bld) [Entitic vol] 11.6 fL Normal 9.0-12.7 [facility] Comment on above: Order Comment: Speci men Type: BLOOD SPECIMENOrdering Facility: [facility] Address: [address] Performed By: #### 5 8410-2 ####[facility]ATORYCLIA [id number] [address] [place] Platelets (Bld) [#/Vol] 347 10*3/uL Normal 150-400 [facility] Comment on above: Order Comment: Speci men Type: BLOOD SPECIMENOrdering Facility: [facility] Address: [address] [place], [place] [address] Performed By: #### 5 8410-2 ####[facility]ATORYCLIA [id number] [place] [address] [place] RBC (Bld) [#/Vol] 3.19 10*6/uL Low 4.20-6.00 [facility] Comment on above: Order Comment: Speci men Type: BLOOD SPECIMENOrdering Facility: [facility] Address: [address] [place] [address] Performed By: #### 5 8410-2 ####[facility]ATORYCLIA [id number] [address] STATES OF [facility] WBC (Bld) [#/Vol] 10.29 10*3/uL Normal 3.70-11.00 [facility] Comment on above: Order Comment: Speci men Type: BLOOD SPECIMENOrdering Facility: [facility] Address: [address] [place] [address] Performed By: #### 5 8410-2 ####[facility]ORYCLIA [id number] [address] [place] CONSULT PROGon 06-21-2021 CONSULT PROG Normal [facility] CONSULT PROG Normal [facility] Magnesium SerPl-mCncon 06-21 Magnesium [Mass/Vol] 2.5 mg/dL High 1.7-2.3 [facility] Comment on above: Order Comment: Speci men Type: BLOOD SPECIMENOrdering Facility: [facility] Address: [address] [place] [address] Performed By: #### 2 4321-2, 07364-2 ####[facility]ATORYCLIA [id number] [place] [address] [place] NUTRITIONon 06-21-2021 NUTRITION Normal [facility] XR CHEST 1V FRONTALon 2021 XR CHEST 1V FRONTAL Normal [facility] aPTT PPPon 06-21-2021 aPTT Coag (PPP) [Time] 68.5 s High 23.0-32.4 [facility] Comment on above: Order Comment: Speci men Type: BLOOD SPECIMENOrdering Facility: [facility] Address: [address] [place] [address] Performed By: #### 1 4979-9 ####[facility]ATORYCLIA [id number] [address] STATES [facility] aPTT Coag (PPP) [Time] 57.8 s High 23.0-32.4 [facility] Comment on above: Order Comment: Speci men Type: BLOOD SPECIMENOrdering Facility: [facility] Address: [address] [place] [address] Performed By: #### 1 4979-9 ####[facility]ATORYCLIA [id number] [address] [place] Basic metabolic 2000 panelon 06-20-2021 Anion gap [Moles/Vol] 9 mmol/L Normal 9-18 [facility] Comment on above: Order Comment: Speci men Type: BLOOD SPECIMENOrdering Facility: [facility] Address: [address] [place] [address] Performed By: #### 2 432-2, 22225-3 ####[facility]ATORYCLIA [id number] [place] [address] [place] Calcium [Mass/Vol] 8.3 mg/dL Low 8.5-10.2 [facility] Comment on above: Order Comment: Speci men Type: BLOOD SPECIMENOrdering Facility: [facility] Address: [address] [place] [address] Performed By: #### 2 432-2, 15085-2 ####[facility]ATORYCLIA [id number] [address] [place] Chloride [Moles/Vol] 111 mmol/L High 97-105 [facility] Comment on above: Order Comment: Speci men Type: BLOOD SPECIMENOrdering Facility: [facility] Address: [address] [place] [address] Performed By: #### 2 4321-2, ####[facility]ATORYCLIA [id number] [place] [address] [place] CO2 [Moles/Vol] 24 mmol/L Normal 22-30 [facility] Comment on above: Order Comment: Shira feldman Type: BLOOD SPECIMENOrdering Facility: [facility] Address: [address] [place] [address] Performed By: #### 2 432-2, ####[facility]ATORYCLIA [id number] [place] [address] [place] Creatinine [Mass/Vol] 0.64 mg/dL Low 0.73-1.22 [facility] Comment on above: Order Comment: Shira feldman Type: BLOOD SPECIMENOrdering Facility: [facility] Address: [address] [place] [address] Performed By: #### 2 4322, ####[facility]ATORYCLIA [id number] [address] [place] GFR/1.73 sq M.predicted MDRD (S/P/Bld) [Vol rate/Area] mL/min/{1.73_m2} Normal [facility] Comment on above: Order Comment: Shira feldman Type: BLOOD SPECIMENOrdering Facility: [facility] Address: [address] [place] [address] Result Comment: >60e GFR (Estimated GFR) Units [...] actual GFR. Performed By: #### 2 4321-2, ####[facility]ATORYCLIA [id number] [place] [address] [place] Glucose [Mass/Vol] 114 mg/dL High 74-99 [facility] Comment on above: Order Comment: Shira feldman Type: BLOOD SPECIMENOrdering Facility: [facility] Address: [address] [place] [address] Result Comment: The [place] [employer] (ADA) provides guidance for cutoff [...] Standards of Medical Care in Diabetes 2016, [place] [employer]. Diabetes Care. 2016.39(Suppl 1). Performed By: #### 2 432-, ####[facility]ATORYCLIA [id number] [place] [address] [place] Potassium [Moles/Vol] 4.1 mmol/L Normal 3.7-5.1 [facility] Comment on above: Order Comment: Shira feldman Type: BLOOD SPECIMENOrdering Facility: [facility] Address: [address] [place] [address] Performed By: #### 2 432-, ####[facility]ORATORYCLIA [id number] [place] [address] [place] Sodium [Moles/Vol] 144 mmol/L Normal 136-144 [facility] Comment on above: Order Comment: Shira feldman Type: BLOOD SPECIMENOrdering Facility: [facility] Address: [address] [place] [address] Performed By: #### 2 43205-08, ####[facility]ATORYCLIA [id number] [place] [address] [place] Urea nitrogen [Mass/Vol] 27 mg/dL High 9-24 [facility] Comment on above: Order Comment: Speci men Type: BLOOD SPECIMENOrdering Facility: [facility] Address: [address] [place] [address] Performed By: #### 2 4321-2, 96974-0 ####[facility]ORATORYCLIA [id number] [address] [place] CASE MANAGEMon 06-20-2021 CASE MANAGEM Normal [facility] CBC panel Auto (Bld)on 06-20 Erythrocyte distribution width (RBC) [Ratio] 15.9 % High 11.5-15.0 [facility] Comment on above: Order Comment: Speci men Type: BLOOD SPECIMENOrdering Facility: [facility] Address: [address] [place] [address] Performed By: #### 5 8410-2 ####[facility]ORATORYCLIA [id number] [address] [place] Hematocrit (Bld) [Volume fraction] 31.0 % Low 39.0-51.0 [facility] Comment on above: Order Comment: Speci men Type: BLOOD SPECIMENOrdering Facility: [facility] Address: [address] [place] [address] Performed By: #### 5 8410-2 ####[facility]ORATORYCLIA [id number] [address] [place] Hemoglobin (Bld) [Mass/Vol] 9.2 g/dL Low 13.0-17.0 [facility] Comment on above: Order Comment: Speci men Type: BLOOD SPECIMENOrdering Facility: [facility] Address: [address] [place] [address] Performed By: #### 5 8410-2 ####[facility]ORATORYCLIA [id number] [address] [place] MCH (RBC) [Entitic mass] 27.4 pg Normal 26.0-34.0 [facility] Comment on above: Order Comment: Speci men Type: BLOOD SPECIMENOrdering Facility: [facility] Address: [address] [place] [address] Performed By: #### 5 8410-2 ####[facility]ORATORYCLIA [id number] [address] MCHC (RBC) [Mass/Vol] 29.7 g/dL Low 30.5-36.0 [facility] Comment on above: Order Comment: Speci men Type: BLOOD SPECIMENOrdering Facility: [facility] Address: [address] [place] [address] Performed By: #### 5 8410-2 ####[facility]ORATORYCLIA [id number] [address] [place] MCV (RBC) [Entitic vol] 92.3 fL Normal 80.0-100.0 [facility] Comment on above: Order Comment: Speci men Type: BLOOD SPECIMENOrdering Facility: [facility] Address: [address] [place] [address] Performed By: #### 5 8410-2 ####[facility]ORATORYCLIA [id number] [address] Nucleated RBC (Bld) [#/Vol] 10*3/uL Normal <0.01 [facility] Comment on above: Order Comment: Speci men Type: BLOOD SPECIMENOrdering Facility: [facility] Address: [address] [place] [address] Performed By: #### 5 8410-2 ####[facility] LABORATORYCLIA [id number] [address] [place] Platelet mean volume (Bld) [Entitic vol] 11.5 fL Normal 9.0-12.7 [facility] Comment on above: Order Comment: Speci men Type: BLOOD SPECIMENOrdering Facility: [facility] Address: [address] [place] [address] Performed By: #### 5 8410-2 ####[facility] LABORATORYCLIA [id number] [address] [place] Platelets (Bld) [#/Vol] 343 10*3/uL Normal 150-400 [facility] Comment on above: Order Comment: Speci men Type: BLOOD SPECIMENOrdering Facility: [facility] Address: [address] [place] [address] Performed By: #### 5 8410-2 ####[facility] LABORATORYCLIA [id number] [address] STATES OF [facility] RBC (Bld) [#/Vol] 3.36 10*6/uL Low 4.20-6.00 [facility] Comment on above: Order Comment: Speci men Type: BLOOD SPECIMENOrdering Facility: [facility] Address: [address] [place] [address] Performed By: #### 5 8410-2 ####[facility] LABORATORYCLIA [id number] [address] OF [facility] WBC (Bld) [#/Vol] 10.71 10*3/uL Normal 3.70-11.00 [facility] Comment on above: Order Comment: Speci men Type: BLOOD SPECIMENOrdering Facility: [facility] Address: [address] [place] [address] Performed By: #### 5 8410-2 ####[facility] LABORATORYCLIA [id number] [address] CONSULT PROGon 06-20-2021 CONSULT PROG Normal [facility] HEMOGLOBIN (HGB)on 2 Hemoglobin (Bld) [Mass/Vol] 9.7 g/dL Low 13.0-17.0 [facility] Comment on above: Order Comment: Speci men Type: BLOOD SPECIMENOrdering Facility: [facility] Address: [address] [place] [address] Performed By: #### H GB ####[facility] LABORATORYCLIA [id number] [address] OF [facility] Magnesium SerPl-mCncon 06-20 Magnesium [Mass/Vol] 2.5 mg/dL High 1.7-2.3 [facility] Comment on above: Order Comment: Speci men Type: BLOOD SPECIMENOrdering Facility: [facility] Address: [address] [place] [address] Performed By: #### 2 4321-2, 91325-2 ####[facility] LABORATORYCLIA [id number] [address] STATES OF [facility] NURSING PROGon 06-20-2021 NURSING PROG Normal [facility] THERAPY NTon 06-20-2021 THERAPY NT Normal [facility] aPTT PPPon 06-20-2021 aPTT Coag (PPP) [Time] 93.5 s High 23.0-32.4 [facility] Comment on above: Order Comment: Speci men Type: BLOOD SPECIMENOrdering Facility: [facility] Address: [address] [place] [address] Performed By: #### 1 4979-9 ####[facility] LABORATORYCLIA [id number] [address] aPTT Coag (PPP) [Time] 47.1 s High 23.0-32.4 [facility] Comment on above: Order Comment: Speci men Type: BLOOD SPECIMENOrdering Facility: [facility] Address: [address] [place] [address] Performed By: #### 1 4979-9 ####[facility] LABORATORYCLIA [id number] [place] [address] [place] Basic metabolic 2000 panelon 06-19-2021 Anion gap [Moles/Vol] 7 mmol/L Low 9-18 [facility] Comment on above: Order Comment: Speci men Type: BLOOD SPECIMENOrdering Facility: [facility] Address: [address] [place] [address] Performed By: #### 2 4321-2 ####[facility] LABORATORYCLIA [id number] [address] STATES OF [facility] Calcium [Mass/Vol] 8.1 mg/dL Low 8.5-10.2 [facility] Comment on above: Order Comment: Speci men Type: BLOOD SPECIMENOrdering Facility: [facility] Address: [address] [address] Performed By: #### 2 4321-2 ####[facility] LABORATORYCLIA [id number] [address] STATES OF [facility] Chloride [Moles/Vol] 111 mmol/L High 97-105 [facility] Comment on above: Order Comment: Speci men Type: BLOOD SPECIMENOrdering Facility: [facility] Address: [address] [place] [address] Performed By: #### 2 4321-2 ####[facility] LABORATORYCLIA [id number] [address] STATES OF [place] CO2 [Moles/Vol] 24 mmol/L Normal 22-30 [facility] Comment on above: Order Comment: Speci men Type: BLOOD SPECIMENOrdering Facility: [facility] Address: [address] [place] [address] Performed By: #### 2 4321-2 ####[facility] LABORATORYCLIA [id number] [address] STATES OF [place] Creatinine [Mass/Vol] 0.71 mg/dL Low 0.73-1.22 [facility] Comment on above: Order Comment: Speci men Type: BLOOD SPECIMENOrdering Facility: [facility] Address: [address] [place] [address] Performed By: #### 2 4321-2 ####[facility] LABORATORYCLIA [id number] [address] STATES OF [place] GFR/1.73 sq M.predicted MDRD (S/P/Bld) [Vol rate/Area] mL/min/{1.73_m2} Normal [facility] Comment on above: Order Comment: Speci men Type: BLOOD SPECIMENOrdering Facility: [facility] Address: [address] [place] [address] Result Comment: >60e GFR (Estimated GFR) Units [...] actual GFR. Performed By: #### 2 4321-2 ####[facility] LABORATORYCLIA [id number] [place] [address] [place] Glucose [Mass/Vol] 110 mg/dL High 74-99 [facility] Comment on above: Order Comment: Shira feldman Type: BLOOD SPECIMENOrdering Facility: [facility] Address: [address] [place] [address] Result Comment: The [place] [employer] (ADA) provides guidance for cutoff [...] Standards of Medical Care in Diabetes 2016, [place] [employer]. Diabetes Care. 2016.39(Suppl 1). Performed By: #### 2 4321-2 ####[facility] LABORATORYCLIA [id number] [address] STATES OF [place] Potassium [Moles/Vol] 3.7 mmol/L Normal 3.7-5.1 [facility] Comment on above: Order Comment: Shira feldman Type: BLOOD SPECIMENOrdering Facility: [facility] Address: [address] [id number] Performed By: #### 2 4321-2 ####[facility] LABORATORYCLIA [id number] [address] [id number] [place] Sodium [Moles/Vol] 142 mmol/L Normal 136-144 [facility] Comment on above: Order Comment: Speci men Type: BLOOD SPECIMENOrdering Facility: [facility] Address: [address] [place] [address] Performed By: #### 2 4321-2 ####[facility] LABORATORYCLIA [id number] [address] STATES OF [place] Urea nitrogen [Mass/Vol] 26 mg/dL High 9-24 [facility] Comment on above: Order Comment: Speci men Type: BLOOD SPECIMENOrdering Facility: [facility] Address: [address] [place] [address] Performed By: #### 2 4321-2 ####[facility] LABORATORYCLIA [id number] [address] [place] CBC panel Auto (Bld)on 06-19 Erythrocyte distribution width (RBC) [Ratio] 15.7 % High 11.5-15.0 [facility] Comment on above: Order Comment: Speci men Type: BLOOD SPECIMENOrdering Facility: [facility] Address: [address] [place] [address] Performed By: #### 5 8410-2 ####[facility] LABORATORYCLIA [id number] [address] STATES [place] Hematocrit (Bld) [Volume fraction] 30.9 % Low 39.0-51.0 [facility] Comment on above: Order Comment: Speci men Type: BLOOD SPECIMENOrdering Facility: [facility] Address: [address] [place] [address] Performed By: #### 5 8410-2 ####[facility] LABORATORYCLIA [id number] [address] [place] Hemoglobin (Bld) [Mass/Vol] 9.5 g/dL Low 13.0-17.0 [facility] Comment on above: Order Comment: Speci men Type: BLOOD SPECIMENOrdering Facility: [facility] Address: [address] [place] [address] Performed By: #### 5 8410-2 ####[facility] LABORATORYCLIA [id number] [address] MCH (RBC) [Entitic mass] 28.4 pg Normal 26.0-34.0 [facility] Comment on above: Order Comment: Speci men Type: BLOOD SPECIMENOrdering Facility: [facility] Address: [address] [place] [address] Performed By: #### 5 8410-2 ####[facility] LABORATORYCLIA [id number] [address] MCHC (RBC) [Mass/Vol] 30.7 g/dL Normal 30.5-36.0 [facility] Comment on above: Order Comment: Speci men Type: BLOOD SPECIMENOrdering Facility: [facility] Address: [address] [place] [address] Performed By: #### 5 8410-2 ####[facility] LABORATORYCLIA [id number] [address] MCV (RBC) [Entitic vol] 92.2 fL Normal 80.0-100.0 [facility] Comment on above: Order Comment: Speci men Type: BLOOD SPECIMENOrdering Facility: [facility] Address: [address] [place] [address] Performed By: #### 5 8410-2 ####[facility] LABORATORYCLIA [id number] [address] Nucleated RBC (Bld) [#/Vol] 10*3/uL Normal <0.01 [facility] Comment on above: Order Comment: Speci men Type: BLOOD SPECIMENOrdering Facility: [facility] Address: [address] [place] [address] Performed By: #### 5 8410-2 ####[facility] LABORATORYCLIA [id number] [address] OF [facility] Platelet mean volume (Bld) [Entitic vol] 11.7 fL Normal 9.0-12.7 [facility] Comment on above: Order Comment: Speci men Type: BLOOD SPECIMENOrdering Facility: [facility] Address: [address] [place] [address] Performed By: #### 5 8410-2 ####[facility] LABORATORYCLIA [id number] [address] STATES OF [facility] Platelets (Bld) [#/Vol] 323 10*3/uL Normal 150-400 [facility] Comment on above: Order Comment: Speci men Type: BLOOD SPECIMENOrdering Facility: [facility] Address: [address] [place] [address] Performed By: #### 5 8410-2 ####[facility] LABORATORYCLIA [id number] [address] [place] RBC (Bld) [#/Vol] 3.35 10*6/uL Low 4.20-6.00 [facility] Comment on above: Order Comment: Speci men Type: BLOOD SPECIMENOrdering Facility: [facility] Address: [address] [place] [address] Performed By: #### 5 8410-2 ####[facility] LABORATORYCLIA [id number] [address] OF [facility] WBC (Bld) [#/Vol] 9.53 10*3/uL Normal 3.70-11.00 [facility] Comment on above: Order Comment: Speci men Type: BLOOD SPECIMENOrdering Facility: [facility] Address: [address] [place] [address] Performed By: #### 5 8410-2 ####[facility] LABORATORYCLIA [id number] [address] OF [place] HEMOGLOBIN (HGB)on 2 Hemoglobin (Bld) [Mass/Vol] 9.7 g/dL Low 13.0-17.0 [facility] Comment on above: Order Comment: Speci men Type: BLOOD SPECIMENOrdering Facility: [facility] Address: [address] [place] [address] Performed By: #### H GB ####[facility] LABORATORYCLIA [id number] [address] Magnesium SerPl-mCncon 06-19 Magnesium [Mass/Vol] 2.5 mg/dL High 1.7-2.3 [facility] Comment on above: Order Comment: Speci men Type: BLOOD SPECIMENOrdering Facility: [facility] Address: [address] [place] [address] Performed By: #### 1 9123-9, 2777-1 ####[facility] LABORATORYCLIA [id number] [address] OF [facility] NURSING PROGon 06-19-2021 NURSING PROG Normal [facility] Phosphate SerPl-mCncon 06-19 Phosphate [Mass/Vol] 2.6 mg/dL Low 2.7-4.8 [facility] Comment on above: Order Comment: Speci men Type: BLOOD SPECIMENOrdering Facility: [facility] Address: [address] [place] [address] Performed By: #### 1 9123-9, 2777-1 ####[facility] LABORATORYCLIA [id number] [address] aPTT PPPon 06-19-2021 aPTT Coag (PPP) [Time] 61.9 s High 23.0-32.4 [facility] Comment on above: Order Comment: Speci men Type: BLOOD SPECIMENOrdering Facility: [facility] Address: [address] [place] [address] Performed By: #### 1 4979-9 ####[facility] LABORATORYCLIA [id number] [address] aPTT Coag (PPP) [Time] 68.6 s High 23.0-32.4 [facility] Comment on above: Order Comment: Speci men Type: BLOOD SPECIMENOrdering Facility: [facility] Address: [address] [place] [address] Performed By: #### 1 4979-9 ####[facility] LABORATORYCLIA [id number] [place] [address] [place] aPTT Coag (PPP) [Time] 83.2 s High 23.0-32.4 [facility] Comment on above: Order Comment: Speci men Type: BLOOD SPECIMENOrdering Facility: [facility] Address: [address] [place] [address] Performed By: #### 1 4979-9 ####[facility] LABORATORYCLIA [id number] [place] [address] [place] Basic metabolic 2000 panelon 06-18-2021 Anion gap [Moles/Vol] 7 mmol/L Low 9-18 [facility] Comment on above: Order Comment: Speci men Type: BLOOD SPECIMENOrdering Facility: [facility] Address: [address] [place] [address] Performed By: #### 2 4321-2, , 2776-05 ####[facility] LABORATORYCLIA [id number] [place] [address] [place] Calcium [Mass/Vol] 8.2 mg/dL Low 8.5-10.2 [facility] Comment on above: Order Comment: Speci men Type: BLOOD SPECIMENOrdering Facility: [facility] Address: [address] [place] [address] Performed By: #### 2 4321-2, , 27711-04 ####[facility] LABORATORYCLIA [id number] [place] [address] [place] Chloride [Moles/Vol] 115 mmol/L High 97-105 [facility] Comment on above: Order Comment: Speci men Type: BLOOD SPECIMENOrdering Facility: [facility] Address: [address] [place] [address] Performed By: #### 2 4321-2, , 277- ####[facility] LABORATORYCLIA [id number] [place] [address] [place] CO2 [Moles/Vol] 23 mmol/L Normal 22-30 [facility] Comment on above: Order Comment: Shira feldman Type: BLOOD SPECIMENOrdering Facility: [facility] Address: [address] [place], [place] [address] [address] Performed By: #### 2 4321-2, , 2776-05 ####[facility] LABORATORYCLIA [id number] [place] [address] [place] Creatinine [Mass/Vol] 0.70 mg/dL Low 0.73-1.22 [facility] Comment on above: Order Comment: Shira feldman Type: BLOOD SPECIMENOrdering Facility: [facility] Address: [address] [place] [address] Performed By: #### 2 4321-2, , 2776-05 ####[facility] LABORATORYCLIA [id number] [address] [id number] [place] GFR/1.73 sq M.predicted MDRD (S/P/Bld) [Vol rate/Area] mL/min/{1.73_m2} Normal [facility] Comment on above: Order Comment: Shira feldman Type: BLOOD SPECIMENOrdering Facility: [facility] Address: [address] [place] [address] Result Comment: >60e GFR (Estimated GFR) Units [...] Performed By: #### 2 4321-2, , 2776-05 ####[facility] LABORATORYCLIA [id number] [place] [address] [place] Glucose [Mass/Vol] 105 mg/dL High 74-99 [facility] Comment on above: Order Comment: Shira feldman Type: BLOOD SPECIMENOrdering Facility: [facility] Address: [address] [place], [place] [address] Result Comment: The [place] [employer] (ADA) provides guidance for cutoff [...] Standards of Medical Care in Diabetes 2016, [place] [employer]. Diabetes Care. 2016.39(Suppl 1). Performed By: #### 2 4321-2, , 2776-05 ####[facility] LABORATORYCLIA [id number] [place] [address] [place] Potassium [Moles/Vol] 4.1 mmol/L Normal 3.7-5.1 [facility] Comment on above: Order Comment: Shira feldman Type: BLOOD SPECIMENOrdering Facility: [facility] Address: [address] [place], [place] [address] Performed By: #### 2 4321-2, , 2776-05 ####[facility] LABORATORYCLIA [id number] [place] [address] [place] Sodium [Moles/Vol] 145 mmol/L High 136-144 [facility] Comment on above: Order Comment: Shira feldman Type: BLOOD SPECIMENOrdering Facility: [facility] Address: [address] [place], [place] [id number] Performed By: #### 2 4321-2, , 2776-05 ####[facility] LABORATORYCLIA [id number] [place] [address] [place] Urea nitrogen [Mass/Vol] 27 mg/dL High 9-24 [facility] Comment on above: Order Comment: Speci men Type: BLOOD SPECIMENOrdering Facility: [facility] Address: [address] [place] [address] Performed By: #### 2 4321-2, 73178-7, 2777-1 ####[facility] LABORATORYCLIA [id number] [address] STATES OF [facility] CALCIUM IONIZED Bon 06-18-19 22 Calcium.ionized (BldV) [Mass/Vol] 1.22 mmol/L Normal 1.08-1.30 [facility] Comment on above: Order Comment: Speci men Type: BLOOD SPECIMENOrdering Facility: [facility] Address: [address] [place] [address] Performed By: #### I CA ####[facility] HE[facility] SERVICESCLIA [id number] [address] STATES [facility] Calcium.ionized adjusted to pH 7.4 (Bld) [Moles/Vol] 1.23 mmol/L Normal 1.08-1.30 [facility] Comment on above: Order Comment: Speci men Type: BLOOD SPECIMENOrdering Facility: [facility] Address: [address] [place] [address] Performed By: #### I CA ####[facility] LABORATORYCLIA [id number] [address] STATES [facility] CBC panel Auto (Bld)on 06-18 Erythrocyte distribution width (RBC) [Ratio] 15.8 % High 11.5-15.0 [facility] Comment on above: Order Comment: Speci men Type: BLOOD SPECIMENOrdering Facility: [facility] Address: [address] [place] [address] Performed By: #### 5 8410-2 ####[facility] LABORATORYCLIA [id number] [address] Hematocrit (Bld) [Volume fraction] 29.5 % Low 39.0-51.0 [facility] Comment on above: Order Comment: Speci men Type: BLOOD SPECIMENOrdering Facility: [facility] Address: [address] [place] [address] Performed By: #### 5 8410-2 ####[facility] LABORATORYCLIA [id number] [address] Hemoglobin (Bld) [Mass/Vol] 8.8 g/dL Low 13.0-17.0 [facility] Comment on above: Order Comment: Speci men Type: BLOOD SPECIMENOrdering Facility: [facility] Address: [address] [place] [address] Performed By: #### 5 8410-2 ####[facility] LABORATORYCLIA [id number] [address] OF [facility] MCH (RBC) [Entitic mass] 27.4 pg Normal 26.0-34.0 [facility] Comment on above: Order Comment: Speci men Type: BLOOD SPECIMENOrdering Facility: [facility] Address: [address] [place] [address] Performed By: #### 5 8410-2 ####[facility] LABORATORYCLIA [id number] [address] STATES OF [facility] MCHC (RBC) [Mass/Vol] 29.8 g/dL Low 30.5-36.0 [facility] Comment on above: Order Comment: Speci men Type: BLOOD SPECIMENOrdering Facility: [facility] Address: [address] [place] [address] Performed By: #### 5 8410-2 ####[facility] LABORATORYCLIA [id number] [address] STATES OF [facility] MCV (RBC) [Entitic vol] 91.9 fL Normal 80.0-100.0 [facility] Comment on above: Order Comment: Speci men Type: BLOOD SPECIMENOrdering Facility: [facility] Address: [address] [place] [address] Performed By: #### 5 8410-2 ####[facility] LABORATORYCLIA [id number] [address] Nucleated RBC (Bld) [#/Vol] 10*3/uL Normal <0.01 [facility] Comment on above: Order Comment: Speci men Type: BLOOD SPECIMENOrdering Facility: [facility] Address: [address] [place] [address] Performed By: #### 5 8410-2 ####[facility] LABORATORYCLIA [id number] [place] [address] [place] Platelet mean volume (Bld) [Entitic vol] 11.9 fL Normal 9.0-12.7 [facility] Comment on above: Order Comment: Speci men Type: BLOOD SPECIMENOrdering Facility: [facility] Address: [address] [place] [address] Performed By: #### 5 8410-2 ####[facility] LABORATORYCLIA [id number] [place] [address] [place] Platelets (Bld) [#/Vol] 291 10*3/uL Normal 150-400 [facility] Comment on above: Order Comment: Speci men Type: BLOOD SPECIMENOrdering Facility: [facility] Address: [address] [place] [address] Performed By: #### 5 8410-2 ####[facility] LABORATORYCLIA [id number] [place] [address] [place] RBC (Bld) [#/Vol] 3.21 10*6/uL Low 4.20-6.00 [facility] Comment on above: Order Comment: Speci men Type: BLOOD SPECIMENOrdering Facility: [facility] Address: [address] [place] [address] Performed By: #### 5 8410-2 ####[facility] LABORATORYCLIA [id number] [place] [address] [place] WBC (Bld) [#/Vol] 10.19 10*3/uL Normal 3.70-11.00 [facility] Comment on above: Order Comment: Speci men Type: BLOOD SPECIMENOrdering Facility: [facility] Address: [address] [place] [address] Performed By: #### 5 8410-2 ####[facility] LABORATORYCLIA [id number] [address] [place] FERRITIN BLDon 06-18-2021 Ferritin [Mass/Vol] 600.9 ng/mL High 30.3-565.7 [facility] Comment on above: Order Comment: Speci men Type: BLOOD SPECIMENOrdering Facility: [facility] Address: [address] [place] [address] Performed By: #### S ERFOL, IRON, FERR ####[facility] LABORATORYCLIA [id number] [address] FOLATE SERUMon 06-18-2021 Folate [Mass/Vol] 14.3 ng/mL Normal >4.7 [facility] Comment on above: Order Comment: Speci men Type: BLOOD SPECIMENOrdering Facility: [facility] Address: [address] [place] [address] Performed By: #### S ERFOL, IRON, FERR ####[facility] LABORATORYCLIA [id number] [address] Gas and Carbon monoxide pane l (BldV)on 06-18-2021 Base excess Calc (BldV) [Moles/Vol] 0.5 mmol/L Normal 0-2 [facility] Comment on above: Order Comment: Speci men Type: VENOUS BLOOD SPECIMENOrdering Facility: [facility] Address: [address] [place] [address] Performed By: #### 2 4344-4 ####[facility] LABORATORYCLIA [id number] [address] Body temperature 97.34 [degF] Normal [facility] Comment on above: Order Comment: Speci men Type: VENOUS BLOOD SPECIMENOrdering Facility: [facility] Address: [address] [place] [address] Performed By: #### 2 4344-4 ####[facility] LABORATORYCLIA [id number] [address] STATES OF [facility] CALCIUM IONIZED, PH CORRECTED 1.26 mmol/L Normal 1.08-1.30 [facility] Comment on above: Order Comment: Speci men Type: VENOUS BLOOD SPECIMENOrdering Facility: [facility] Address: [address] [place] [address] Performed By: #### 2 4344-4 ####[facility] LABORATORYCLIA [id number] [place] [address] [place] Calcium.ionized (BldV) [Mass/Vol] 1.25 mmol/L Normal 1.08-1.30 [facility] Comment on above: Order Comment: Speci men Type: VENOUS BLOOD SPECIMENOrdering Facility: [facility] Address: [address] [place] [address] Performed By: #### 2 4344-4 ####[facility] LABORATORYCLIA [id number] [address] Carboxyhemoglobin (BldV) [Mass fraction] 1.5 % Normal 0.0-2.0 [facility] Comment on above: Order Comment: Speci men Type: VENOUS BLOOD SPECIMENOrdering Facility: [facility] Address: [address] [place] [address] Result Comment: Carb oxyhemoglobin Reference Range for Smokers: 2.0-8.0% Performed By: #### 2 4344-4 ####[facility] LABORATORYCLIA [id number] [place] [address] [place] CO2 (BldV) [Partial pressure] 38 mm[Hg] Low 42-55 [facility] Comment on above: Order Comment: Speci men Type: VENOUS BLOOD SPECIMENOrdering Facility: [facility] Address: [address] [place] [address] Performed By: #### 2 4344-4 ####[facility] LABORATORYCLIA [id number] [address] [place] CO2 [Moles/Vol] 22.9 mmol/L Low 25-29 [facility] Comment on above: Order Comment: Speci men Type: VENOUS BLOOD SPECIMENOrdering Facility: [facility] Address: [address] [place] [address] Performed By: #### 2 4344-4 ####[facility] LABORATORYCLIA [id number] [address] CO2 adjusted to patient's actual temperature (BldV) [Partial pressure] 37 mmHg Low 42-55 [facility] Comment on above: Order Comment: Speci men Type: VENOUS BLOOD SPECIMENOrdering Facility: [facility] Address: [address] [place] [address] Performed By: #### 2 4344-4 ####[facility] LABORATORYCLIA [id number] [address] OF [facility] Glucose [Mass/Vol] 103 mg/dL Normal 60-105 [facility] Comment on above: Order Comment: Speci men Type: VENOUS BLOOD SPECIMENOrdering Facility: [facility] Address: [address] [place] [address] Performed By: #### 2 4344-4 ####[facility] LABORATORYCLIA [id number] [address] HCO3 (Bld) [Moles/Vol] 24.4 mmol/L Normal 24-28 [facility] Comment on above: Order Comment: Speci men Type: VENOUS BLOOD SPECIMENOrdering Facility: [facility] Address: [address] [place] [address] Performed By: #### 2 4344-4 ####[facility] LABORATORYCLIA [id number] [address] Hematocrit (Bld) [Volume fraction] 28.7 % Low 39.0-51.0 [facility] Comment on above: Order Comment: Speci men Type: VENOUS BLOOD SPECIMENOrdering Facility: [facility] Address: [address] [place] [address] Performed By: #### 2 4344-4 ####[facility] LABORATORYCLIA [id number] [place] [address] Hemoglobin (Bld) [Mass/Vol] 9.3 g/dL Low 13.0-17.0 [facility] Comment on above: Order Comment: Speci men Type: VENOUS BLOOD SPECIMENOrdering Facility: [facility] Address: [address] [address] Performed By: #### 2 4344-4 ####[facility] LABORATORYCLIA [id number] [address] OF [facility] Methemoglobin (Bld) [Mass fraction] % Normal 0.0-1.5 [facility] Comment on above: Order Comment: Speci men Type: VENOUS BLOOD SPECIMENOrdering Facility: [facility] Address: [address] [place] [address] Performed By: #### 2 4344-4 ####[facility] LABORATORYCLIA [id number] [address] O2 THERAPY Ventilator Normal [facility] Comment on above: Order Comment: Speci men Type: VENOUS BLOOD SPECIMENOrdering Facility: [facility] Address: [address] [place] [address] Performed By: #### 2 4344-4 ####[facility] LABORATORYCLIA [id number] [address] Oxygen (BldV) [Partial pressure] 37 mm[Hg] Normal 35-45 [facility] Comment on above: Order Comment: Speci men Type: VENOUS BLOOD SPECIMENOrdering Facility: [facility] Address: [address] [address] Performed By: #### 2 4344-4 ####[facility] LABORATORYCLIA [id number] [address] Oxygen adjusted to patient's actual temperature (BldV) [Partial pressure] 35.1 mmHg Normal 35-45 [facility] Comment on above: Order Comment: Speci men Type: VENOUS BLOOD SPECIMENOrdering Facility: [facility] Address: [address] [address] Performed By: #### 2 4344-4 ####[facility] LABORATORYCLIA [id number] [address] Oxygen saturation in Blood 67.1 % Normal 60-85 [facility] Comment on above: Order Comment: Speci men Type: VENOUS BLOOD SPECIMENOrdering Facility: [facility] Address: [address] [place] [address] Performed By: #### 2 4344-4 ####[facility] LABORATORYCLIA [id number] [address] [place] Oxyhemoglobin (BldV) [Mass fraction] 66 % Normal 60-85 [facility] Comment on above: Order Comment: Speci men Type: VENOUS BLOOD SPECIMENOrdering Facility: [facility] Address: [address] [place] [address] Performed By: #### 2 4344-4 ####[facility] LABORATORYCLIA [id number] [address] [place] pH (BldV) 7.42 [pH] Normal 7.32-7.42 [facility] Comment on above: Order Comment: Speci men Type: VENOUS BLOOD SPECIMENOrdering Facility: [facility] Address: [address] [place] [address] Performed By: #### 2 4344-4 ####[facility] LABORATORYCLIA [id number] [address] pH adjusted to patient's actual temperature (BldV) 7.43 High 7.32-7.42 [facility] Comment on above: Order Comment: Speci men Type: VENOUS BLOOD SPECIMENOrdering Facility: [facility] Address: [address] [place] [address] Performed By: #### 2 4344-4 ####[facility] LABORATORYCLIA [id number] [address] [place] Potassium [Moles/Vol] 4.0 mmol/L Normal 3.5-5.0 [facility] Comment on above: Order Comment: Speci men Type: VENOUS BLOOD SPECIMENOrdering Facility: [facility] Address: [address] [place] [address] Performed By: #### 2 4344-4 ####[facility] LABORATORYCLIA [id number] [address] [place] Sodium [Moles/Vol] 146 mmol/L High 136-144 [facility] Comment on above: Order Comment: Speci men Type: VENOUS BLOOD SPECIMENOrdering Facility: [facility] Address: [address] [place] [address] Performed By: #### 2 4344-4 ####[facility] LABORATORYCLIA [id number] [address] [place] HEMOGLOBIN (HGB)on 2 Hemoglobin (Bld) [Mass/Vol] 9.2 g/dL Low 13.0-17.0 [facility] Comment on above: Order Comment: Speci men Type: BLOOD SPECIMENOrdering Facility: [facility] Address: [address] [place] [address] Performed By: #### H GB ####[facility] LABORATORYCLIA [id number] [address] [place] IRON + TIBCon 06-18-2021 Iron [Mass/Vol] 27 ug/dL Low 41-186 [facility] Comment on above: Order Comment: Speci men Type: BLOOD SPECIMENOrdering Facility: [facility] Address: [address] [place] [address] Performed By: #### S ERFOL, IRON, FERR ####[facility] LABORATORYCLIA [id number] [place] [address] [place] Iron binding capacity [Mass/Vol] 141 ug/dL Low 232-386 [facility] Comment on above: Order Comment: Speci men Type: BLOOD SPECIMENOrdering Facility: [facility] Address: [address] [place] [address] Performed By: #### S ERFOL, IRON, FERR ####[facility]ORATORYCLIA [id number] [address] Iron saturation [Mass fraction] 19 % Normal 15-57 [facility] Comment on above: Order Comment: Speci men Type: BLOOD SPECIMENOrdering Facility: [facility] Address: [address] [place] [address] Performed By: #### S ERFOL, IRON, FERR ####[facility] LABORATORYCLIA [id number] [address] OF [facility] Magnesium SerPl-mCncon 06-18 Magnesium [Mass/Vol] 2.5 mg/dL High 1.7-2.3 [facility] Comment on above: Order Comment: Speci men Type: BLOOD SPECIMENOrdering Facility: [facility] Address: [address] [place] [address] Performed By: #### 2 4321-2, 83667-1, 2777-1 ####[facility] LABORATORYCLIA [id number] [address] [place] NURSING PROGon 06-18-2021 NURSING PROG Normal [facility] Phosphate SerPl-mCncon 06-18 Phosphate [Mass/Vol] 3.0 mg/dL Normal 2.7-4.8 [facility] Comment on above: Order Comment: Speci men Type: BLOOD SPECIMENOrdering Facility: [facility] Address: [address] [place] [address] Performed By: #### 2 4321-2, 44091-7, 2777-1 ####[facility] LABORATORYCLIA [id number] [address] [place] THERAPY NTon 06-18-2021 THERAPY NT Normal [facility] aPTT PPPon 06-18-2021 aPTT Coag (PPP) [Time] 43.0 s High 23.0-32.4 [facility] Comment on above: Order Comment: Speci men Type: BLOOD SPECIMENOrdering Facility: [facility] Address: [address] [place] [address] Performed By: #### 1 4979-9 ####[facility] LABORATORYCLIA [id number] [address] aPTT Coag (PPP) [Time] 60.6 s High 23.0-32.4 [facility] Comment on above: Order Comment: Speci men Type: BLOOD SPECIMENOrdering Facility: [facility] Address: [address] [place] [address] Performed By: #### 1 4979-9 ####[facility] LABORATORYCLIA [id number] [address] aPTT Coag (PPP) [Time] 46.4 s High 23.0-32.4 [facility] Comment on above: Order Comment: Speci men Type: BLOOD SPECIMENOrdering Facility: [facility] Address: [address] [place] [address] Performed By: #### 1 4979-9 ####[facility] LABORATORYCLIA [id number] [address] OF [facility] Basic metabolic 2000 panelon 06-17-2021 Anion gap [Moles/Vol] 7 mmol/L Low 9-18 [facility] Comment on above: Order Comment: Speci men Type: BLOOD SPECIMENOrdering Facility: [facility] Address: [address] [place] [address] Performed By: #### 2 951-2, 36713-9, 2777-1, 28422-9 ####[facility] LABORATORYCLIA [id number] [place] [address] [place] Calcium [Mass/Vol] 8.1 mg/dL Low 8.5-10.2 [facility] Comment on above: Order Comment: Speci men Type: BLOOD SPECIMENOrdering Facility: [facility] Address: [address] [place] [address] Performed By: #### 2 951-2, 53771-7, 2777-1, 85400-8 ####[facility] LABORATORYCLIA [id number] [address] [place] Chloride [Moles/Vol] 113 mmol/L High 97-105 [facility] Comment on above: Order Comment: Speci men Type: BLOOD SPECIMENOrdering Facility: [facility] Address: [address] [place] [address] Performed By: #### 2 951-2, 38544-0, 2777-1, 08804-7 ####[facility] LABORATORYCLIA [id number] [place] [address] [place] CO2 [Moles/Vol] 25 mmol/L Normal 22-30 [facility] Comment on above: Order Comment: Speci men Type: BLOOD SPECIMENOrdering Facility: [facility] Address: [address] [place] [address] Performed By: #### 2 951-2, 23496-7, 2777-1, 38098-3 ####[facility] LABORATORYCLIA [id number] [address] STATES OF [facility] Creatinine [Mass/Vol] 0.70 mg/dL Low 0.73-1.22 [facility] Comment on above: Order Comment: Speci men Type: BLOOD SPECIMENOrdering Facility: [facility] Address: [address] [place] [address] Performed By: #### 2 951-2, 65469-2, 2777-1, 15708-1 ####[facility] LABORATORYCLIA [id number] [place] [address] [place] GFR/1.73 sq M.predicted MDRD (S/P/Bld) [Vol rate/Area] mL/min/{1.73_m2} Normal [facility] Comment on above: Order Comment: Speci men Type: BLOOD SPECIMENOrdering Facility: [facility] Address: [address] [place] [address] Result Comment: >60e GFR (Estimated GFR) Units [...] actual GFR. Performed By: #### 2 951-2, 79381-2, 2776-, 75625-3 ####[facility] LABORATORYCLIA [id number] [place] [address] [place] Glucose [Mass/Vol] 122 mg/dL High 74-99 [facility] Comment on above: Order Comment: Shira feldman Type: BLOOD SPECIMENOrdering Facility: [facility] Address: [address] [place], [place] [id number] Result Comment: The [place] [employer] (ADA) provides guidance for cutoff [...] Standards of Medical Care in Diabetes 2016, [place] [employer]. Diabetes Care. 2016.39(Suppl 1). Performed By: #### 2 951-2, , 2776-05, 97686-3 ####[facility] LABORATORYCLIA [id number] [place] [address] [place] Potassium [Moles/Vol] 3.5 mmol/L Low 3.7-5.1 [facility] Comment on above: Order Comment: Shira feldman Type: BLOOD SPECIMENOrdering Facility: [facility] Address: [address] [place] [address] Performed By: #### 2 951-2, 31649-7, 2776-, 25181-1 ####[facility] LABORATORYCLIA [id number] [place] [address] [place] Urea nitrogen [Mass/Vol] 27 mg/dL High 9-24 [facility] Comment on above: Order Comment: Speci men Type: BLOOD SPECIMENOrdering Facility: [facility] Address: [address] [place] [address] Performed By: #### 2 951-2, 86645-3, 2777-1, 24662-8 ####[facility] LABORATORYCLIA [id number] [address] OF [facility] CASE MANAGEMon 06-17-2021 CASE MANAGEM Normal [facility] CBC panel Auto (Bld)on 06-17 Erythrocyte distribution width (RBC) [Ratio] 15.9 % High 11.5-15.0 [facility] Comment on above: Order Comment: Speci men Type: BLOOD SPECIMENOrdering Facility: [facility] Address: [address] [place] [address] Performed By: #### 5 8410-2 ####[facility] LABORATORYCLIA [id number] [address] [place] Hematocrit (Bld) [Volume fraction] 28.9 % Low 39.0-51.0 [facility] Comment on above: Order Comment: Speci men Type: BLOOD SPECIMENOrdering Facility: [facility] Address: [address] [place] [address] Performed By: #### 5 8410-2 ####[facility] LABORATORYCLIA [id number] [address] [place] Hemoglobin (Bld) [Mass/Vol] 8.8 g/dL Low 13.0-17.0 [facility] Comment on above: Order Comment: Speci men Type: BLOOD SPECIMENOrdering Facility: [facility] Address: [address] [place] [address] Performed By: #### 5 8410-2 ####[facility] LABORATORYCLIA [id number] [address] [place] MCH (RBC) [Entitic mass] 28.4 pg Normal 26.0-34.0 [facility] Comment on above: Order Comment: Speci men Type: BLOOD SPECIMENOrdering Facility: [facility] Address: [address] [place] [address] Performed By: #### 5 8410-2 ####[facility] LABORATORYCLIA [id number] [address] STATES [facility] MCHC (RBC) [Mass/Vol] 30.4 g/dL Low 30.5-36.0 [facility] Comment on above: Order Comment: Speci men Type: BLOOD SPECIMENOrdering Facility: [facility] Address: [address] [place] [address] Performed By: #### 5 8410-2 ####[facility]ORATORYCLIA [id number] [address] [place] MCV (RBC) [Entitic vol] 93.2 fL Normal 80.0-100.0 [facility] Comment on above: Order Comment: Speci men Type: BLOOD SPECIMENOrdering Facility: [facility] Address: [address] [place] [address] Performed By: #### 5 8410-2 ####[facility]ORATORYCLIA [id number] [address] Nucleated RBC (Bld) [#/Vol] 10*3/uL Normal <0.01 [facility] Comment on above: Order Comment: Speci men Type: BLOOD SPECIMENOrdering Facility: [facility] Address: [address] [place] [address] Performed By: #### 5 8410-2 ####[facility] LABORATORYCLIA [id number] [address] Platelet mean volume (Bld) [Entitic vol] 11.9 fL Normal 9.0-12.7 [facility] Comment on above: Order Comment: Speci men Type: BLOOD SPECIMENOrdering Facility: [facility] Address: [address] [place] [address] Performed By: #### 5 8410-2 ####[facility]ORATORYCLIA [id number] [address] Platelets (Bld) [#/Vol] 257 10*3/uL Normal 150-400 [facility] Comment on above: Order Comment: Speci men Type: BLOOD SPECIMENOrdering Facility: [facility] Address: [address] [place] [address] Performed By: #### 5 8410-2 ####[facility] LABORATORYCLIA [id number] [address] RBC (Bld) [#/Vol] 3.10 10*6/uL Low 4.20-6.00 [facility] Comment on above: Order Comment: Speci men Type: BLOOD SPECIMENOrdering Facility: [facility] Address: [address] [place] [address] Performed By: #### 5 8410-2 ####[facility] HE[facility] SERVICESCLIA [id number] [address] WBC (Bld) [#/Vol] 10.54 10*3/uL Normal 3.70-11.00 [facility] Comment on above: Order Comment: Speci men Type: BLOOD SPECIMENOrdering Facility: [facility] Address: [address] [place] [address] Performed By: #### 5 8410-2 ####[facility] LABORATORYCLIA [id number] [address] HEMOGLOBIN (HGB)on 2 Hemoglobin (Bld) [Mass/Vol] 8.8 g/dL Low 13.0-17.0 [facility] Comment on above: Order Comment: Speci men Type: BLOOD SPECIMENOrdering Facility: [facility] Address: [address] [place] [address] Performed By: #### H GB ####[facility] LABORATORYCLIA [id number] [address] Magnesium SerPl-mCncon 06-17 Magnesium [Mass/Vol] 2.5 mg/dL High 1.7-2.3 [facility] Comment on above: Order Comment: Speci men Type: BLOOD SPECIMENOrdering Facility: [facility] Address: [address] [place] [address] Performed By: #### 2 951-2, , 2776-05, 84034-6 ####[facility] LABORATORYCLIA [id number] [address] OF [facility] NURSING PROGon 06-17-2021 NURSING PROG Normal [facility] NURSING PROG Normal [facility] NURSING PROG Normal [facility] Phosphate SerPl-mCncon 06-17 Phosphate [Mass/Vol] 1.9 mg/dL Low 2.7-4.8 [facility] Comment on above: Order Comment: Speci men Type: BLOOD SPECIMENOrdering Facility: [facility] Address: [address] [place] [address] Performed By: #### 2 951-2, , 2776-05, ####[facility] LABORATORYCLIA [id number] [address] [place] Sodium SerPl-sCncon 06-17-19 22 Sodium [Moles/Vol] 144 mmol/L Normal 136-144 [facility] Comment on above: Order Comment: Speci men Type: BLOOD SPECIMENOrdering Facility: [facility] Address: [address] [place] [address] Performed By: #### 2 951-2 ####[facility] LABORATORYCLIA [id number] [address] [place] Sodium [Moles/Vol] 145 mmol/L High 136-144 [facility] Comment on above: Order Comment: Speci men Type: BLOOD SPECIMENOrdering Facility: [facility] Address: [address] [place] [address] Performed By: #### 2 951-2, , 2776-05, 51572-9 ####[facility] LABORATORYCLIA [id number] [address] [place] aPTT PPPon 06-17-2021 aPTT Coag (PPP) [Time] 55.8 s High 23.0-32.4 [facility] Comment on above: Order Comment: Speci men Type: BLOOD SPECIMENOrdering Facility: [facility] Address: [address] [place] [address] Performed By: #### 1 4979-9 ####[facility] LABORATORYCLIA [id number] [address] [place] ARTERIAL BLOOD GASESon 06-16 Base excess Calc (Bld) [Moles/Vol] 3 mmol/L High 0-2 [facility] Comment on above: Order Comment: Speci men Type: ARTERIAL BLOOD SPECIMENOrdering Facility: [facility] Address: [address] [place] [address] Performed By: #### A LLBG ####[facility] LABORATORYCLIA [id number] [address] [place] Body temperature 99.14 [degF] Normal [facility] Comment on above: Order Comment: Speci men Type: ARTERIAL BLOOD SPECIMENOrdering Facility: [facility] Address: [address] [place] [address] Performed By: #### A LLBG ####[facility] LABORATORYCLIA [id number] [address] [place] CALCIUM IONIZED, PH CORRECTED 1.21 mmol/L Normal 1.08-1.30 [facility] Comment on above: Order Comment: Speci men Type: ARTERIAL BLOOD SPECIMENOrdering Facility: [facility] Address: [address] [place] [address] Performed By: #### A LLBG ####[facility] LABORATORYCLIA [id number] [place] [address] [place] Calcium.ionized (BldV) [Mass/Vol] 1.17 mmol/L Normal 1.08-1.30 [facility] Comment on above: Order Comment: Speci men Type: ARTERIAL BLOOD SPECIMENOrdering Facility: [facility] Address: [address] [place] [address] Performed By: #### A LLBG ####[facility] LABORATORYCLIA [id number] [address] OF [place] Carboxyhemoglobin (BldA) [Mass fraction] 1.4 % Normal 0.0-2.0 [facility] Comment on above: Order Comment: Speci men Type: ARTERIAL BLOOD SPECIMENOrdering Facility: [facility] Address: [address] [place] [address] Result Comment: Carb oxyhemoglobin Reference Range for Smokers: 2.0-8.0% Performed By: #### A LLBG ####[facility] LABORATORYCLIA [id number] [address] STATES [facility] CO2 (Bld) [Partial pressure] 38 mm Hg Normal 36-46 [facility] Comment on above: Order Comment: Speci men Type: ARTERIAL BLOOD SPECIMENOrdering Facility: [facility] Address: [address] [place] [address] Performed By: #### A LLBG ####[facility] LABORATORYCLIA [id number] [address] [place] CO2 [Moles/Vol] 24.5 mmol/L Normal 22-28 [facility] Comment on above: Order Comment: Speci men Type: ARTERIAL BLOOD SPECIMENOrdering Facility: [facility] Address: [address] [place] [address] Performed By: #### A LLBG ####[facility] LABORATORYCLIA [id number] [address] [place] CO2 adjusted to patient's actual temperature (Bld) [Partial pressure] 38 mmHg Normal 36-46 [facility] [facility] Comment on above: Order Comment: Speci men Type: ARTERIAL BLOOD SPECIMENOrdering Facility: [facility] Address: [address] [place] [address] Performed By: #### A LLBG ####[facility] LABORATORYCLIA [id number] [address] [place] Glucose [Mass/Vol] 147 mg/dL High 60-105 [facility] Comment on above: Order Comment: Speci men Type: ARTERIAL BLOOD SPECIMENOrdering Facility: [facility] Address: [address] [place] [address] Performed By: #### A LLBG ####[facility] LABORATORYCLIA [id number] [place] [address] [place] HCO3 (Bld) [Moles/Vol] 27 mmol/L High 22-26 [facility] Comment on above: Order Comment: Speci men Type: ARTERIAL BLOOD SPECIMENOrdering Facility: [facility] Address: [address] [place] [address] Performed By: #### A LLBG ####[facility] LABORATORYCLIA [id number] [address] [place] Hematocrit (Bld) [Volume fraction] 31.8 % Low 39.0-51.0 [facility] Comment on above: Order Comment: Speci men Type: ARTERIAL BLOOD SPECIMENOrdering Facility: [facility] Address: [address] [place] [address] Performed By: #### A LLBG ####[facility] LABORATORYCLIA [id number] [address] [place] Hemoglobin (Bld) [Mass/Vol] 10.3 g/dL Low 13.0-17.0 [facility] Comment on above: Order Comment: Speci men Type: ARTERIAL BLOOD SPECIMENOrdering Facility: [facility] Address: [address] [place] [address] Performed By: #### A LLBG ####[facility] LABORATORYCLIA [id number] [address] [place] Methemoglobin (Bld) [Mass fraction] 1.0 % Normal 0.0-1.5 [facility] Comment on above: Order Comment: Speci men Type: ARTERIAL BLOOD SPECIMENOrdering Facility: [facility] Address: [address] [address] Performed By: #### A LLBG ####[facility]ORATORYCLIA [id number] [address] O2 THERAPY Ventilator Normal [facility] Comment on above: Order Comment: Speci men Type: ARTERIAL BLOOD SPECIMENOrdering Facility: [facility] Address: [address] [address] Performed By: #### A LLBG ####[facility]ATORYCLIA [id number] [address] [place] Oxygen (Bld) [Partial pressure] 78 mm Hg Low 85-95 [facility] Comment on above: Order Comment: Speci men Type: ARTERIAL BLOOD SPECIMENOrdering Facility: [facility] Address: [address] [place] [address] Performed By: #### A LLBG ####[facility] LABORATORYCLIA [id number] [address] Oxygen adjusted to patient's actual temperature (Bld) [Partial pressure] 79.7 mmHg Low 85-95 [facility] Comment on above: Order Comment: Speci men Type: ARTERIAL BLOOD SPECIMENOrdering Facility: [facility] Address: [address] [place] [address] Performed By: #### A LLBG ####[facility] LABORATORYCLIA [id number] [address] OXYGEN SATURATION, ARTERIAL 96 % Normal 95-98 [facility] Comment on above: Order Comment: Speci men Type: ARTERIAL BLOOD SPECIMENOrdering Facility: [facility] Address: [address] [place] [address] Performed By: #### A LLBG ####[facility] LABORATORYCLIA [id number] [address] Oxyhemoglobin (BldA) [Mass fraction] 94 % Low 95-98 [facility] Comment on above: Order Comment: Speci men Type: ARTERIAL BLOOD SPECIMENOrdering Facility: [facility] Address: [address] [place] [address] Performed By: #### A LLBG ####[facility] LABORATORYCLIA [id number] [place] [address] [place] pH (Bld) 7.47 [pH] High 7.35-7.45 [facility] Comment on above: Order Comment: Speci men Type: ARTERIAL BLOOD SPECIMENOrdering Facility: [facility] Address: [address] [place] [address] Performed By: #### A LLBG ####[facility] LABORATORYCLIA [id number] [address] [place] pH adjusted to patient's actual temperature (Bld) 7.46 High 7.35-7.45 [facility] Comment on above: Order Comment: Speci men Type: ARTERIAL BLOOD SPECIMENOrdering Facility: [facility] Address: [address] [place] [address] Performed By: #### A LLBG ####[facility] LABORATORYCLIA [id number] [place] [address] [place] Potassium [Moles/Vol] 3.7 mmol/L Normal 3.5-5.0 [facility] Comment on above: Order Comment: Speci men Type: ARTERIAL BLOOD SPECIMENOrdering Facility: [facility] Address: [address] [place] [address] Performed By: #### A LLBG ####[facility] LABORATORYCLIA [id number] [place] [address] [place] Sodium [Moles/Vol] 155 mmol/L High 136-144 [facility] Comment on above: Order Comment: Speci men Type: ARTERIAL BLOOD SPECIMENOrdering Facility: [facility] Address: [address] [place] [address] Performed By: #### A LLBG ####[facility] LABORATORYCLIA [id number] [place] [address] [place] Bacteria Spec Resp Culton Bacteria identified Respiratory culture Nom (Unsp spec) CULTURE, RESPIRATORY: Rare Normal respiratory chris present ORGANISM ID: 1 Few Yeast, not cryptococcus neoformans GRAM STAIN: No organisms seen Few Polymorphonuclear leukocytes Few Epithelial cells Abnormal [facility] Comment on above: Performed By: #### 3 2355-0 ####[facility] LABORATORYCLIA [id number] [place] [address] [place] Basic metabolic 2000 panelon 06-16-2021 Anion gap [Moles/Vol] 9 mmol/L Normal 9-18 [facility] Comment on above: Order Comment: Speci men Type: BLOOD SPECIMENOrdering Facility: [facility] Address: [address] [place] [address] Performed By: #### 2 4321-2 ####[facility] LABORATORYCLIA [id number] [place] [address] [place] Calcium [Mass/Vol] 8.4 mg/dL Low 8.5-10.2 [facility] Comment on above: Order Comment: Speci men Type: BLOOD SPECIMENOrdering Facility: [facility] Address: [address] [place] [address] Performed By: #### 2 4321-2 ####[facility]ORATORYCLIA [id number] [place] [address] [place] Chloride [Moles/Vol] 120 mmol/L High 97-105 [facility] Comment on above: Order Comment: Speci men Type: BLOOD SPECIMENOrdering Facility: [facility] Address: [address] [place] [address] Performed By: #### 2 4321-2 ####[facility] LABORATORYCLIA [id number] [place] [address] [place] CO2 [Moles/Vol] 27 mmol/L Normal 22-30 [facility] Comment on above: Order Comment: Speci men Type: BLOOD SPECIMENOrdering Facility: [facility] Address: [address] [place] [address] Performed By: #### 2 4321-2 ####[facility] LABORATORYCLIA [id number] [place] [address] [place] Creatinine [Mass/Vol] 0.75 mg/dL Normal 0.73-1.22 [facility] Comment on above: Order Comment: Johncara feldman Type: BLOOD SPECIMENOrdering Facility: [facility] Address: [address] [id number] Performed By: #### 2 4321-2 ####[facility] LABORATORYCLIA [id number] [place] [address] [place] GFR/1.73 sq M.predicted MDRD (S/P/Bld) [Vol rate/Area] mL/min/{1.73_m2} Normal [facility] Comment on above: Order Comment: Johncara feldman Type: BLOOD SPECIMENOrdering Facility: [facility] Address: [address] [place], [place] [phone] Result Comment: >60e GFR (Estimated GFR) Units [...] actual GFR. Performed By: #### 2 4321-2 ####[facility]ORATORYCLIA [id number] [place] [address] [place] Glucose [Mass/Vol] 160 mg/dL High 74-99 [facility] Comment on above: Order Comment: Johncara feldman Type: BLOOD SPECIMENOrdering Facility: [facility] Address: [address] [id number] Result Comment: The [place] [employer] (ADA) provides guidance for cutoff [...] Standards of Medical Care in Diabetes 2016, [place] [employer]. Diabetes Care. 2016.39(Suppl 1). Performed By: #### 2 4321-2 ####[facility] LABORATORYCLIA [id number] [address] STATES OF [facility] Potassium [Moles/Vol] 3.1 mmol/L Low 3.7-5.1 [facility] Comment on above: Order Comment: Speci men Type: BLOOD SPECIMENOrdering Facility: [facility] Address: [address] [place] [address] Performed By: #### 2 4321-2 ####[facility] LABORATORYCLIA [id number] [address] STATES [facility] Sodium [Moles/Vol] 156 mmol/L High 136-144 [facility] Comment on above: Order Comment: Speci men Type: BLOOD SPECIMENOrdering Facility: [facility] Address: [address] [place] [address] Performed By: #### 2 4321-2 ####[facility]ORATORYCLIA [id number] [address] STATES [facility] Urea nitrogen [Mass/Vol] 33 mg/dL High 9-24 [facility] Comment on above: Order Comment: Speci men Type: BLOOD SPECIMENOrdering Facility: [facility] Address: [address] [place] [address] Performed By: #### 2 4321-2 ####[facility] LABORATORYCLIA [id number] [address] [id number] [place] CASE MANAGEMon 06-16-2021 CASE MANAGEM Normal [facility] CBC panel Auto (Bld)on 06-16 Erythrocyte distribution width (RBC) [Ratio] 15.9 % High 11.5-15.0 [facility] Comment on above: Order Comment: Speci men Type: BLOOD SPECIMENOrdering Facility: [facility] Address: [address] [place] [address] Performed By: #### 5 8410-2 ####[facility]ORATORYCLIA [id number] [address] Hematocrit (Bld) [Volume fraction] 34.6 % Low 39.0-51.0 [facility] Comment on above: Order Comment: Speci men Type: BLOOD SPECIMENOrdering Facility: [facility] Address: [address] [place] [address] Performed By: #### 5 8410-2 ####[facility] LABORATORYCLIA [id number] [address] OF [facility] Hemoglobin (Bld) [Mass/Vol] 10.2 g/dL Low 13.0-17.0 [facility] Comment on above: Order Comment: Speci men Type: BLOOD SPECIMENOrdering Facility: [facility] Address: [address] [place] [address] Performed By: #### 5 8410-2 ####[facility] LABORATORYCLIA [id number] [address] MCH (RBC) [Entitic mass] 28.5 pg Normal 26.0-34.0 [facility] Comment on above: Order Comment: Speci men Type: BLOOD SPECIMENOrdering Facility: [facility] Address: [address] [place] [address] Performed By: #### 5 8410-2 ####[facility] LABORATORYCLIA [id number] [address] [place] MCHC (RBC) [Mass/Vol] 29.5 g/dL Low 30.5-36.0 [facility] Comment on above: Order Comment: Speci men Type: BLOOD SPECIMENOrdering Facility: [facility] Address: [address] [place] [address] Performed By: #### 5 8410-2 ####[facility]ORATORYCLIA [id number] [address] MCV (RBC) [Entitic vol] 96.6 fL Normal 80.0-100.0 [facility] Comment on above: Order Comment: Speci men Type: BLOOD SPECIMENOrdering Facility: [facility] Address: [address] [place] [address] Performed By: #### 5 8410-2 ####[facility]ORATORYCLIA [id number] [address] Nucleated RBC (Bld) [#/Vol] 10*3/uL Normal <0.01 [facility] Comment on above: Order Comment: Speci men Type: BLOOD SPECIMENOrdering Facility: [facility] Address: [address] [place] [address] Performed By: #### 5 8410-2 ####[facility]ORATORYCLIA [id number] [address] Platelet mean volume (Bld) [Entitic vol] 11.9 fL Normal 9.0-12.7 [facility] Comment on above: Order Comment: Speci men Type: BLOOD SPECIMENOrdering Facility: [facility] Address: [address] [place] [address] Performed By: #### 5 8410-2 ####[facility]ORATORYCLIA [id number] [address] Platelets (Bld) [#/Vol] 269 10*3/uL Normal 150-400 [facility] Comment on above: Order Comment: Speci men Type: BLOOD SPECIMENOrdering Facility: [facility] Address: [address] [place] [address] Performed By: #### 5 8410-2 ####[facility]ORATORYCLIA [id number] [address] RBC (Bld) [#/Vol] 3.58 10*6/uL Low 4.20-6.00 [facility] Comment on above: Order Comment: Speci men Type: BLOOD SPECIMENOrdering Facility: [facility] Address: [address] [place] [address] Performed By: #### 5 8410-2 ####[facility] LABORATORYCLIA [id number] [place] [address] [place] WBC (Bld) [#/Vol] 13.11 10*3/uL High 3.70-11.00 [facility] Comment on above: Order Comment: Speci men Type: BLOOD SPECIMENOrdering Facility: [facility] Address: [address] [place] [address] Performed By: #### 5 8410-2 ####[facility] LABORATORYCLIA [id number] [address] [place] CONSULTon 06-16-2021 CONSULT Normal [facility] CONSULT PROGon 06-16-2021 CONSULT PROG Normal [facility] CT BRAIN WO IVCONon 06-16-[address] BRAIN WO IVCON Normal [facility] HEMOGLOBIN (HGB)on 2 Hemoglobin (Bld) [Mass/Vol] 8.9 g/dL Low 13.0-17.0 [facility] Comment on above: Order Comment: Speci men Type: BLOOD SPECIMENOrdering Facility: [facility] Address: [address] [place] [address] Performed By: #### H GB ####[facility] LABORATORYCLIA [id number] [place] [address] [place] Hemoglobin (Bld) [Mass/Vol] 9.6 g/dL Low 13.0-17.0 [facility] Comment on above: Order Comment: Speci men Type: BLOOD SPECIMENOrdering Facility: [facility] Address: [address] [place] [address] Performed By: #### H GB ####[facility] LABORATORYCLIA [id number] [place] [address] [place] Magnesium SerPl-mCncon 06-16 Magnesium [Mass/Vol] 2.7 mg/dL High 1.7-2.3 [facility] Comment on above: Order Comment: Speci men Type: BLOOD SPECIMENOrdering Facility: [facility] Address: [address] [place] [address] Performed By: #### 1 9123-9 ####[facility] LABORATORYCLIA [id number] [place] [address] [place] NURSING PROGon 06-16-2021 NURSING PROG Normal [facility] NUTRITIONon 06-16-2021 NUTRITION Normal [facility] Phosphate SerPl-mCncon 06-16 Phosphate [Mass/Vol] 1.4 mg/dL Low 2.7-4.8 [facility] Comment on above: Order Comment: Speci men Type: BLOOD SPECIMENOrdering Facility: [facility] Address: [address] [place] [address] Performed By: #### 2 777-1 ####[facility] LABORATORYCLIA [id number] [address] [place] STAPH AUREUS PCRon S. aureus and MRSA panel MEGAN+probe (Nose) Normal Negative [facility] Comment on above: Order Comment: Speci men Type: SWAB OF INTERNAL NOSEOrdering Facility: [facility] Address: [address] [place] [address] Result Comment: Nega tive for Staphylococcus aureus by PCR.Negative for MRSA by PCR Performed By: #### S APCR ####[facility]ORATORYCLIA [id number] [place] [address] [place] Sodium SerPl-sCncon 06-16-19 22 Sodium [Moles/Vol] 150 mmol/L High 136-144 [facility] Comment on above: Order Comment: Speci men Type: BLOOD SPECIMENOrdering Facility: [facility] Address: [address] [place] [address] Performed By: #### 2 951-2 ####[facility] LABORATORYCLIA [id number] [place] [address] [place] Sodium [Moles/Vol] 153 mmol/L High 136-144 [facility] Comment on above: Order Comment: Speci men Type: BLOOD SPECIMENOrdering Facility: [facility] Address: [address] [place] [address] Performed By: #### 2 951-2 ####[facility] LABORATORYCLIA [id number] [address] STATES OF [facility] Sodium [Moles/Vol] 158 mmol/L High 136-144 [facility] Comment on above: Order Comment: Speci men Type: BLOOD SPECIMENOrdering Facility: [facility] Address: [address] [place] [address] Performed By: #### 2 951-2 ####[facility]ORATORYCLIA [id number] [place] [address] [place] aPTT PPPon 06-16-2021 aPTT Coag (PPP) [Time] 61.8 s High 23.0-32.4 [facility] Comment on above: Order Comment: Speci men Type: BLOOD SPECIMENOrdering Facility: [facility] Address: [address] [place] [address] Performed By: #### 1 4979-9 ####[facility]ORATORYCLIA [id number] [address] STATES OF [facility] aPTT Coag (PPP) [Time] 57.6 s High 23.0-32.4 [facility] Comment on above: Order Comment: Speci men Type: BLOOD SPECIMENOrdering Facility: [facility] Address: [address] [place] [address] Performed By: #### 1 4979-9 ####[facility]ORATORYCLIA [id number] [place] [address] [place] ALLIED HEALTHon 06-15-2021 ALLIED HEALTH Normal [facility] ALLIED HEALTH Normal [facility] ALLIED HEALTH Normal [facility] ALLIED HEALTH Normal [facility] ARTERIAL BLOOD GASESon 06-15 Base excess Calc (Bld) [Moles/Vol] 3 mmol/L High 0-2 [facility] Comment on above: Order Comment: Speci men Type: ARTERIAL BLOOD SPECIMENOrdering Facility: [facility] Address: [address] [place] [address] Performed By: #### A LLBG ####[facility] LABORATORYCLIA [id number] [address] Body temperature 99.5 [degF] Normal [facility] Comment on above: Order Comment: Speci men Type: ARTERIAL BLOOD SPECIMENOrdering Facility: [facility] Address: [address] [place] [address] Performed By: #### A LLBG ####[facility] LABORATORYCLIA [id number] [address] OF [facility] CALCIUM IONIZED, PH CORRECTED 1.34 mmol/L High 1.08-1.30 [facility] Comment on above: Order Comment: Speci men Type: ARTERIAL BLOOD SPECIMENOrdering Facility: [facility] Address: [address] [place] [address] Performed By: #### A LLBG ####[facility]ORATORYCLIA [id number] [address] Calcium.ionized (BldV) [Mass/Vol] 1.29 mmol/L Normal 1.08-1.30 [facility] Comment on above: Order Comment: Speci men Type: ARTERIAL BLOOD SPECIMENOrdering Facility: [facility] Address: [address] [place] [address] Performed By: #### A LLBG ####[facility]ORATORYCLIA [id number] [address] Carboxyhemoglobin (BldA) [Mass fraction] 1.3 % Normal 0.0-2.0 [facility] Comment on above: Order Comment: Speci men Type: ARTERIAL BLOOD SPECIMENOrdering Facility: [facility] Address: [address] [place] [address] Result Comment: Carb oxyhemoglobin Reference Range for Smokers: 2.0-8.0% Performed By: #### A LLBG ####[facility]ORATORYCLIA [id number] [address] CO2 (Bld) [Partial pressure] 37 mm Hg Normal 36-46 [facility] Comment on above: Order Comment: Speci men Type: ARTERIAL BLOOD SPECIMENOrdering Facility: [facility] Address: [address] [place] [address] Performed By: #### A LLBG ####[facility] LABORATORYCLIA [id number] [address] [place] CO2 [Moles/Vol] 24.6 mmol/L Normal 22-28 [facility] Comment on above: Order Comment: Speci men Type: ARTERIAL BLOOD SPECIMENOrdering Facility: [facility] Address: [address] [place] [address] Performed By: #### A LLBG ####[facility] LABORATORYCLIA [id number] [address] [place] CO2 adjusted to patient's actual temperature (Bld) [Partial pressure] 38 mmHg Normal 36-46 [facility] Comment on above: Order Comment: Speci men Type: ARTERIAL BLOOD SPECIMENOrdering Facility: [facility] Address: [address] [place] [address] Performed By: #### A LLBG ####[facility] LABORATORYCLIA [id number] [address] STATES OF [place] FIO2 100 % Normal [facility] Comment on above: Order Comment: Speci men Type: ARTERIAL BLOOD SPECIMENOrdering Facility: [facility] Address: [address] [place] [address] Performed By: #### A LLBG ####[facility]ORATORYCLIA [id number] [address] [place] Glucose [Mass/Vol] 159 mg/dL High 60-105 [facility] Comment on above: Order Comment: Speci men Type: ARTERIAL BLOOD SPECIMENOrdering Facility: [facility] Address: [address] [place] [address] Performed By: #### A LLBG ####[facility]ORATORYCLIA [id number] [address] HCO3 (Bld) [Moles/Vol] 27 mmol/L High 22-26 [facility] Comment on above: Order Comment: Speci men Type: ARTERIAL BLOOD SPECIMENOrdering Facility: [facility] Address: [address] [place] [address] Performed By: #### A LLBG ####[facility] LABORATORYCLIA [id number] [address] [place] Hematocrit (Bld) [Volume fraction] 31.0 % Low 39.0-51.0 [facility] Comment on above: Order Comment: Speci men Type: ARTERIAL BLOOD SPECIMENOrdering Facility: [facility] Address: [address] [place] [address] Performed By: #### A LLBG ####[facility] LABORATORYCLIA [id number] [address] STATES OF [facility] Hemoglobin (Bld) [Mass/Vol] 10.0 g/dL Low 13.0-17.0 [facility] Comment on above: Order Comment: Speci men Type: ARTERIAL BLOOD SPECIMENOrdering Facility: [facility] Address: [address] [place] [address] Performed By: #### A LLBG ####[facility] LABORATORYCLIA [id number] [address] Methemoglobin (Bld) [Mass fraction] % Normal 0.0-1.5 [facility] Comment on above: Order Comment: Speci men Type: ARTERIAL BLOOD SPECIMENOrdering Facility: [facility] Address: [address] [place] [address] Performed By: #### A LLBG ####[facility] LABORATORYCLIA [id number] [address] O2 THERAPY Ventilator Normal [facility] Comment on above: Order Comment: Speci men Type: ARTERIAL BLOOD SPECIMENOrdering Facility: [facility] Address: [address] [place] [address] Performed By: #### A LLBG ####[facility]ORATORYCLIA [id number] [address] [place] Oxygen (Bld) [Partial pressure] 279 mm Hg High 85-95 [facility] Comment on above: Order Comment: Speci men Type: ARTERIAL BLOOD SPECIMENOrdering Facility: [facility] Address: [address] [place] [address] Performed By: #### A LLBG ####[facility] LABORATORYCLIA [id number] [address] [place] Oxygen adjusted to patient's actual temperature (Bld) [Partial pressure] 281 mmHg High 85-95 [facility] Comment on above: Order Comment: Speci men Type: ARTERIAL BLOOD SPECIMENOrdering Facility: [facility] Address: [address] [place] [address] Performed By: #### A LLBG ####[facility] LABORATORYCLIA [id number] [address] STATES [place] OXYGEN SATURATION, ARTERIAL 100 % High 95-98 [facility] Comment on above: Order Comment: Speci men Type: ARTERIAL BLOOD SPECIMENOrdering Facility: [facility] Address: [address] [place] [address] Performed By: #### A LLBG ####[facility] LABORATORYCLIA [id number] [address] [place] Oxyhemoglobin (BldA) [Mass fraction] 98 % Normal 95-98 [facility] Comment on above: Order Comment: Speci men Type: ARTERIAL BLOOD SPECIMENOrdering Facility: [facility] Address: [address] [place] [address] Performed By: #### A LLBG ####[facility]ORATORYCLIA [id number] [address] [place] pH (Bld) 7.47 [pH] High 7.35-7.45 [facility] Comment on above: Order Comment: Speci men Type: ARTERIAL BLOOD SPECIMENOrdering Facility: [facility] Address: [address] [place] [address] Performed By: #### A LLBG ####[facility]ORATORYCLIA [id number] [address] STATES [facility] pH adjusted to patient's actual temperature (Bld) 7.46 High 7.35-7.45 [facility] Comment on above: Order Comment: Speci men Type: ARTERIAL BLOOD SPECIMENOrdering Facility: [facility] Address: [address] [place] [address] Performed By: #### A LLBG ####[facility]ORATORYCLIA [id number] [address] [place] Potassium [Moles/Vol] 3.6 mmol/L Normal 3.5-5.0 [facility] Comment on above: Order Comment: Speci men Type: ARTERIAL BLOOD SPECIMENOrdering Facility: [facility] Address: [address] [place] [address] Performed By: #### A LLBG ####[facility]ORATORYCLIA [id number] [address] [place] Sodium [Moles/Vol] 162 mmol/L High 136-144 [facility] Comment on above: Order Comment: Speci men Type: ARTERIAL BLOOD SPECIMENOrdering Facility: [facility] Address: [address] [place] [address] Performed By: #### A LLBG ####[facility]ORATORYCLIA [id number] [address] [place] Base excess Calc (Bld) [Moles/Vol] 4 mmol/L High 0-2 [facility] Comment on above: Order Comment: Speci men Type: ARTERIAL BLOOD SPECIMENOrdering Facility: [facility] Address: [address] [place] [address] Performed By: #### A LLBG ####[facility]ORATORYCLIA [id number] [address] [place] Body temperature 100.58 [degF] Normal [facility] Comment on above: Order Comment: Speci men Type: ARTERIAL BLOOD SPECIMENOrdering Facility: [facility] Address: [address] [place] [address] Performed By: #### A LLBG ####[facility] LABORATORYCLIA [id number] [address] STATES OF [facility] CALCIUM IONIZED, PH CORRECTED 1.34 mmol/L High 1.08-1.30 [facility] Comment on above: Order Comment: Speci men Type: ARTERIAL BLOOD SPECIMENOrdering Facility: [facility] Address: [address] [place] [address] Performed By: #### A LLBG ####[facility] LABORATORYCLIA [id number] [address] [place] Calcium.ionized (BldV) [Mass/Vol] 1.33 mmol/L High 1.08-1.30 [facility] Comment on above: Order Comment: Speci men Type: ARTERIAL BLOOD SPECIMENOrdering Facility: [facility] Address: [address] [place] [address] Performed By: #### A LLBG ####[facility] LABORATORYCLIA [id number] [address] [place] Carboxyhemoglobin (BldA) [Mass fraction] 1.5 % Normal 0.0-2.0 [facility] Comment on above: Order Comment: Speci men Type: ARTERIAL BLOOD SPECIMENOrdering Facility: [facility] Address: [address] [place] [address] Result Comment: Carb oxyhemoglobin Reference Range for Smokers: 2.0-8.0% Performed By: #### A LLBG ####[facility]ORATORYCLIA [id number] [address] [place] CO2 (Bld) [Partial pressure] 46 mm Hg Normal 36-46 [facility] Comment on above: Order Comment: Speci men Type: ARTERIAL BLOOD SPECIMENOrdering Facility: [facility] Address: [address] [place] [address] Performed By: #### A LLBG ####[facility]ORATORYCLIA [id number] [address] [place] CO2 [Moles/Vol] 26.4 mmol/L Normal 22-28 [facility] Comment on above: Order Comment: Speci men Type: ARTERIAL BLOOD SPECIMENOrdering Facility: [facility] Address: [address] [place] [address] Performed By: #### A LLBG ####[facility]ORATORYCLIA [id number] [address] [place] CO2 adjusted to patient's actual temperature (Bld) [Partial pressure] 48 mmHg High 36-46 [facility] Comment on above: Order Comment: Speci men Type: ARTERIAL BLOOD SPECIMENOrdering Facility: [facility] Address: [address] [place] [address] Performed By: #### A LLBG ####[facility]ORATORYCLIA [id number] [address] STATES [place] FIO2 100 % Normal [facility] Comment on above: Order Comment: Speci men Type: ARTERIAL BLOOD SPECIMENOrdering Facility: [facility] Address: [address] [place] [address] Performed By: #### A LLBG ####[facility]ORATORYCLIA [id number] [address] [place] Glucose [Mass/Vol] 132 mg/dL High 60-105 [facility] Comment on above: Order Comment: Speci men Type: ARTERIAL BLOOD SPECIMENOrdering Facility: [facility] Address: [address] [place] [address] Performed By: #### A LLBG ####[facility]ORATORYCLIA [id number] [place] [address] [place] HCO3 (Bld) [Moles/Vol] 29 mmol/L High 22-26 [facility] Comment on above: Order Comment: Speci men Type: ARTERIAL BLOOD SPECIMENOrdering Facility: [facility] Address: [address] [place] [address] Performed By: #### A LLBG ####[facility]ORATORYCLIA [id number] [address] [place] Hematocrit (Bld) [Volume fraction] 32.3 % Low 39.0-51.0 [facility] Comment on above: Order Comment: Speci men Type: ARTERIAL BLOOD SPECIMENOrdering Facility: [facility] Address: [address] [place] [address] Performed By: #### A LLBG ####[facility] LABORATORYCLIA [id number] [address] [place] Hemoglobin (Bld) [Mass/Vol] 10.4 g/dL Low 13.0-17.0 [facility] Comment on above: Order Comment: Speci men Type: ARTERIAL BLOOD SPECIMENOrdering Facility: [facility] Address: [address] [place] [address] Performed By: #### A LLBG ####[facility]ORATORYCLIA [id number] [address] [place] Methemoglobin (Bld) [Mass fraction] % Normal 0.0-1.5 [facility] Comment on above: Order Comment: Speci men Type: ARTERIAL BLOOD SPECIMENOrdering Facility: [facility] Address: [address] [place] [address] Performed By: #### A LLBG ####[facility]ORATORYCLIA [id number] [address] [place] O2 THERAPY NR=Non-Rebreather Mask Normal [facility] Comment on above: Order Comment: Speci men Type: ARTERIAL BLOOD SPECIMENOrdering Facility: [facility] Address: [address] [place] [address] Performed By: #### A LLBG ####[facility]ORATORYCLIA [id number] [address] [place] Oxygen (Bld) [Partial pressure] 130 mm Hg High 85-95 [facility] Comment on above: Order Comment: Speci men Type: ARTERIAL BLOOD SPECIMENOrdering Facility: [facility] Address: [address] [place] [address] Performed By: #### A LLBG ####[facility]ORATORYCLIA [id number] [address] Oxygen adjusted to patient's actual temperature (Bld) [Partial pressure] 136 mmHg High 85-95 [facility] Comment on above: Order Comment: Speci men Type: ARTERIAL BLOOD SPECIMENOrdering Facility: [facility] Address: [address] [place] [address] Performed By: #### A LLBG ####[facility]ORATORYCLIA [id number] [address] [place] OXYGEN SATURATION, ARTERIAL 99 % High 95-98 [facility] Comment on above: Order Comment: Speci men Type: ARTERIAL BLOOD SPECIMENOrdering Facility: [facility] Address: [address] [place] [address] Performed By: #### A LLBG ####[facility]ORATORYCLIA [id number] [address] Oxyhemoglobin (BldA) [Mass fraction] 97 % Normal 95-98 [facility] Comment on above: Order Comment: Speci men Type: ARTERIAL BLOOD SPECIMENOrdering Facility: [facility] Address: [address] [place] [address] Performed By: #### A LLBG ####[facility]ORATORYCLIA [id number] [address] [place] pH (Bld) 7.41 [pH] Normal 7.35-7.45 [facility] Comment on above: Order Comment: Speci men Type: ARTERIAL BLOOD SPECIMENOrdering Facility: [facility] Address: [address] [place] [address] Performed By: #### A LLBG ####[facility]ORATORYCLIA [id number] [address] pH adjusted to patient's actual temperature (Bld) 7.40 Normal 7.35-7.45 [facility] Comment on above: Order Comment: Speci men Type: ARTERIAL BLOOD SPECIMENOrdering Facility: [facility] Address: [address] [place] [address] Performed By: #### A LLBG ####[facility]ORATORYCLIA [id number] [address] STATES OF [facility] Potassium [Moles/Vol] 3.8 mmol/L Normal 3.5-5.0 [facility] Comment on above: Order Comment: Speci men Type: ARTERIAL BLOOD SPECIMENOrdering Facility: [facility] Address: [address] [place] [address] Performed By: #### A LLBG ####[facility]ORATORYCLIA [id number] [address] Sodium [Moles/Vol] 166 mmol/L High 136-144 [facility] Comment on above: Order Comment: Speci men Type: ARTERIAL BLOOD SPECIMENOrdering Facility: [facility] Address: [address] [place] [address] Performed By: #### A LLBG ####[facility]ORATORYCLIA [id number] [address] [place] Bacteria Bld Culton 06-15-19 22 Bacteria identified Cx Nom (Bld) CULTURE, BLOOD: No growth 5 days Normal [facility] Comment on above: Performed By: #### 6 00-7 ####[facility]ORATORYCLIA [id number] [address] [place] Basic metabolic 2000 panelon 06-15-2021 Anion gap [Moles/Vol] 9 mmol/L Normal 9-18 [facility] Comment on above: Order Comment: Speci men Type: BLOOD SPECIMEN Performed By: #### 2 4321-2, 2777-1, 36956-2 ####[facility]ORATORYCLIA [id number] [address] [place] Calcium [Mass/Vol] 9.0 mg/dL Normal 8.5-10.2 [facility] Comment on above: Order Comment: Speci men Type: BLOOD SPECIMEN Performed By: #### 2 4321-2, 2776-05, ####[facility]ORATORYCLIA [id number] [place], [place] [id number] [place] [address] [place] OF [facility] Chloride [Moles/Vol] 125 mmol/L High 97-105 [facility] Comment on above: Order Comment: Speci men Type: BLOOD SPECIMEN Performed By: #### 2 4321-2, 2776-05, ####[facility]ORATORYCLIA [id number] [address] STATES OF [facility] CO2 [Moles/Vol] 29 mmol/L Normal 22-30 [facility] Comment on above: Order Comment: Speci men Type: BLOOD SPECIMEN Performed By: #### 2 4321-2, 2776-05, ####[facility]ORATORYCLIA [id number] [address] STATES OF [facility] Creatinine [Mass/Vol] 0.81 mg/dL Normal 0.73-1.22 [facility] Comment on above: Order Comment: Speci men Type: BLOOD SPECIMEN Performed By: #### 2 4321-2, 2776-05, ####[facility]ORATORYCLIA [id number] [address] [place] GFR/1.73 sq M.predicted MDRD (S/P/Bld) [Vol rate/Area] mL/min/{1.73_m2} Normal [facility] Comment on above: Order Comment: [...] GFR. Performed By: #### 2 4321-2, 2776-05, ####[facility] LABORATORYCLIA [id number] [place] [address] [place] Glucose [Mass/Vol] 124 mg/dL High 74-99 [facility] Comment on above: Order Comment: Speci men Type: BLOOD SPECIMEN Result Comment: The [place] [employer] (ADA) provides guidance for cutoff [...] Standards of Medical Care in Diabetes 2016, [place] [employer]. Diabetes Care. 2016.39(Suppl 1). Performed By: #### 2 4321-2, 2776-05, ####[facility]ORATORYCLIA [id number] [place] [address] [place] Potassium [Moles/Vol] 3.8 mmol/L Normal 3.7-5.1 [facility] Comment on above: Order Comment: Speci men Type: BLOOD SPECIMEN Performed By: #### 2 1-2, 2776-05, ####[facility]ORATORYCLIA [id number] [place] [address] [place] Sodium [Moles/Vol] 163 mmol/L High 136-144 [facility] Comment on above: Order Comment: Speci men Type: BLOOD SPECIMEN Performed By: #### 2 4321-2, 2776-05, ####[facility]ORATORYCLIA [id number] [place] [address] [place] Urea nitrogen [Mass/Vol] 35 mg/dL High 9-24 [facility] Comment on above: Order Comment: Speci men Type: BLOOD SPECIMEN Performed By: #### 2 1-2, 2776-05, 71191-2 ####[facility]ORATORYCLIA [id number] [address] STATES [facility] CBC panel Auto (Bld)on 06-15 Erythrocyte distribution width (RBC) [Ratio] 16.3 % High 11.5-15.0 [facility] Comment on above: Order Comment: Speci men Type: BLOOD SPECIMENOrdering Facility: [facility] Address: [address] [place] [address] Performed By: #### 5 8410-2 ####[facility]ORATORYCLIA [id number] [address] Hematocrit (Bld) [Volume fraction] 30.0 % Low 39.0-51.0 [facility] Comment on above: Order Comment: Speci men Type: BLOOD SPECIMENOrdering Facility: [facility] Address: [address] [place] [address] Performed By: #### 5 8410-2 ####[facility]ORATORYCLIA [id number] [address] Hemoglobin (Bld) [Mass/Vol] 8.9 g/dL Low 13.0-17.0 [facility] Comment on above: Order Comment: Speci men Type: BLOOD SPECIMENOrdering Facility: [facility] Address: [address] [place] [address] Performed By: #### 5 8410-2 ####[facility]ORATORYCLIA [id number] [address] MCH (RBC) [Entitic mass] 28.7 pg Normal 26.0-34.0 [facility] Comment on above: Order Comment: Speci men Type: BLOOD SPECIMENOrdering Facility: [facility] Address: [address] [place] [address] Performed By: #### 5 8410-2 ####[facility]ORATORYCLIA [id number] [address] STATES [facility] MCHC (RBC) [Mass/Vol] 29.7 g/dL Low 30.5-36.0 [facility] Comment on above: Order Comment: Speci men Type: BLOOD SPECIMENOrdering Facility: [facility] Address: [address] [place], [place] [address] Performed By: #### 5 8410-2 ####[facility]ORATORYCLIA [id number] [address] STATES [facility] MCV (RBC) [Entitic vol] 96.8 fL Normal 80.0-100.0 [facility] Comment on above: Order Comment: Speci men Type: BLOOD SPECIMENOrdering Facility: [facility] Address: [address] [place], [place] [address] Performed By: #### 5 8410-2 ####[facility]ORATORYCLIA [id number] [address] [place] Nucleated RBC (Bld) [#/Vol] 10*3/uL Normal <0.01 [facility] Comment on above: Order Comment: Speci men Type: BLOOD SPECIMENOrdering Facility: [facility] Address: [address] [place], [place] [address] Performed By: #### 5 8410-2 ####[facility]ORATORYCLIA [id number] [address] Platelet mean volume (Bld) [Entitic vol] 12.3 fL Normal 9.0-12.7 [facility] Comment on above: Order Comment: Speci men Type: BLOOD SPECIMENOrdering Facility: [facility] Address: [address] [place], [place] [id number] Performed By: #### 5 8410-2 ####[facility]ORATORYCLIA [id number] [address] Platelets (Bld) [#/Vol] 226 10*3/uL Normal 150-400 [facility] Comment on above: Order Comment: Speci men Type: BLOOD SPECIMENOrdering Facility: [facility] Address: [address] [place], [place] [address] Performed By: #### 5 8410-2 ####[facility]ORATORYCLIA [id number] [place] [address] [place] RBC (Bld) [#/Vol] 3.10 10*6/uL Low 4.20-6.00 [facility] Comment on above: Order Comment: Speci men Type: BLOOD SPECIMENOrdering Facility: [facility] Address: [address] [place] [address] Performed By: #### 5 8410-2 ####[facility]ORATORYCLIA [id number] [address] [place] WBC (Bld) [#/Vol] 10.77 10*3/uL Normal 3.70-11.00 [facility] Comment on above: Order Comment: Speci men Type: BLOOD SPECIMENOrdering Facility: [facility] Address: [address] [place] [address] Performed By: #### 5 8410-2 ####[facility]ORATORYCLIA [id number] [address] STATES OF [facility] Erythrocyte distribution width (RBC) [Ratio] 16.2 % High 11.5-15.0 [facility] Comment on above: Order Comment: Speci men Type: BLOOD SPECIMENOrdering Facility: [facility] Address: [address] [place] [address] Performed By: #### 5 8410-2 ####[facility]ORATORYCLIA [id number] [address] OF [facility] Hematocrit (Bld) [Volume fraction] 34.8 % Low 39.0-51.0 [facility] Comment on above: Order Comment: Speci men Type: BLOOD SPECIMENOrdering Facility: [facility] Address: [address] [place] [address] Performed By: #### 5 8410-2 ####[facility]ORATORYCLIA [id number] [address] [place] Hemoglobin (Bld) [Mass/Vol] 10.0 g/dL Low 13.0-17.0 [facility] Comment on above: Order Comment: Speci men Type: BLOOD SPECIMENOrdering Facility: [facility] Address: [address] [place] [address] Performed By: #### 5 8410-2 ####[facility]ORATORYCLIA [id number] [address] MCH (RBC) [Entitic mass] 27.5 pg Normal 26.0-34.0 [facility] Comment on above: Order Comment: Speci men Type: BLOOD SPECIMENOrdering Facility: [facility] Address: [address] [place] [address] Performed By: #### 5 8410-2 ####[facility]ORATORYCLIA [id number] [address] MCHC (RBC) [Mass/Vol] 28.7 g/dL Low 30.5-36.0 [facility] Comment on above: Order Comment: Speci men Type: BLOOD SPECIMENOrdering Facility: [facility] Address: [address] [place] [address] Performed By: #### 5 8410-2 ####[facility]ORATORYCLIA [id number] [address] MCV (RBC) [Entitic vol] 95.6 fL Normal 80.0-100.0 [facility] Comment on above: Order Comment: Speci men Type: BLOOD SPECIMENOrdering Facility: [facility] Address: [address] [place] [address] Performed By: #### 5 8410-2 ####[facility]ORATORYCLIA [id number] [address] Nucleated RBC (Bld) [#/Vol] 10*3/uL Normal <0.01 [facility] Comment on above: Order Comment: Speci men Type: BLOOD SPECIMENOrdering Facility: [facility] Address: [address] [place] [address] Performed By: #### 5 8410-2 ####[facility]ORATORYCLIA [id number] [address] [place] Platelet mean volume (Bld) [Entitic vol] 11.9 fL Normal 9.0-12.7 [facility] Comment on above: Order Comment: Speci men Type: BLOOD SPECIMENOrdering Facility: [facility] Address: [address] [place] [address] Performed By: #### 5 8410-2 ####[facility]ORATORYCLIA [id number] [address] [place] Platelets (Bld) [#/Vol] 246 10*3/uL Normal 150-400 [facility] Comment on above: Order Comment: Speci men Type: BLOOD SPECIMENOrdering Facility: [facility] Address: [address] [place] [address] Performed By: #### 5 8410-2 ####[facility]ORATORYCLIA [id number] [address] [place] RBC (Bld) [#/Vol] 3.64 10*6/uL Low 4.20-6.00 [facility] Comment on above: Order Comment: Speci men Type: BLOOD SPECIMENOrdering Facility: [facility] Address: [address] [place] [address] Performed By: #### 5 8410-2 ####[facility]ORATORYCLIA [id number] [address] [place] WBC (Bld) [#/Vol] 11.45 10*3/uL High 3.70-11.00 [facility] Comment on above: Order Comment: Speci men Type: BLOOD SPECIMENOrdering Facility: [facility] Address: [address] [place] [address] Performed By: #### 5 8410-2 ####[facility]ORATORYCLIA [id number] [address] [place] Erythrocyte distribution width (RBC) [Ratio] 15.9 % High 11.5-15.0 [facility] Comment on above: Order Comment: Speci men Type: BLOOD SPECIMEN Performed By: #### 5 8410-2 ####[facility]ATORYCLIA [id number] [address] Hematocrit (Bld) [Volume fraction] 35.8 % Low 39.0-51.0 [facility] Comment on above: Order Comment: Speci men Type: BLOOD SPECIMEN Performed By: #### 5 8410-2 ####[facility]ATORYCLIA [id number] [address] Hemoglobin (Bld) [Mass/Vol] 10.4 g/dL Low 13.0-17.0 [facility] Comment on above: Order Comment: Speci men Type: BLOOD SPECIMEN Performed By: #### 5 8410-2 ####[facility]ORATORYCLIA [id number] [address] MCH (RBC) [Entitic mass] 28.0 pg Normal 26.0-34.0 [facility] Comment on above: Order Comment: Speci men Type: BLOOD SPECIMEN Performed By: #### 5 8410-2 ####[facility] LABORATORYCLIA [id number] [address] MCHC (RBC) [Mass/Vol] 29.1 g/dL Low 30.5-36.0 [facility] Comment on above: Order Comment: Speci men Type: BLOOD SPECIMEN Performed By: #### 5 8410-2 ####[facility] LABORATORYCLIA [id number] [address] MCV (RBC) [Entitic vol] 96.2 fL Normal 80.0-100.0 [facility] Comment on above: Order Comment: Speci men Type: BLOOD SPECIMEN Performed By: #### 5 8410-2 ####[facility] LABORATORYCLIA [id number] [address] Nucleated RBC (Bld) [#/Vol] 10*3/uL Normal <0.01 [facility] Comment on above: Order Comment: Speci men Type: BLOOD SPECIMEN Performed By: #### 5 8410-2 ####[facility] LABORATORYCLIA [id number] [address] Platelet mean volume (Bld) [Entitic vol] 11.6 fL Normal 9.0-12.7 [facility] Comment on above: Order Comment: Speci men Type: BLOOD SPECIMEN Performed By: #### 5 8410-2 ####[facility]ORATORYCLIA [id number] [address] Platelets (Bld) [#/Vol] 265 10*3/uL Normal 150-400 [facility] Comment on above: Order Comment: Speci men Type: BLOOD SPECIMEN Performed By: #### 5 8410-2 ####[facility]ORATORYCLIA [id number] [address] RBC (Bld) [#/Vol] 3.72 10*6/uL Low 4.20-6.00 [facility] Comment on above: Order Comment: Speci men Type: BLOOD SPECIMEN Performed By: #### 5 8410-2 ####[facility]ORATORYCLIA [id number] [address] WBC (Bld) [#/Vol] 12.24 10*3/uL High 3.70-11.00 [facility] Comment on above: Order Comment: Speci men Type: BLOOD SPECIMEN Performed By: #### 5 8410-2 ####[facility]ORATORYCLIA [id number] [address] CONSULTon 06-15-2021 CONSULT Normal [facility] CONSULT Normal [facility] CONSULT Normal [facility] CT BRAIN WO IVCONon 06-15-19 CT BRAIN WO IVCON Normal [facility] CT CHEST W IVCON PEon 2021 CT CHEST W IVCON PE Invalid Interpretation Code [facility] Chloride Unsp time (U) [Mole s/Vol]on 06-15-2021 Chloride (U) [Moles/Vol] 28 mmol/L Normal 16-250 [facility] Comment on above: Order Comment: Speci men Type: URINE SPECIMENOrdering Facility: [facility] Address: [address] [place] [address] Performed By: #### U TPR, 14673-5, 22145-0, 05923-9 ####[facility] LABORATORYCLIA [id number] [address] Comprehensive metabolic 2000 panelon 06-15-2021 Albumin [Mass/Vol] 2.8 g/dL Low 3.9-4.9 [facility] Comment on above: Order Comment: Speci men Type: BLOOD SPECIMENOrdering Facility: [facility] Address: [address] [place] [address] Performed By: #### 2 4323-8 ####[facility] LABORATORYCLIA [id number] [address] STATES OF [facility] ALP [Catalytic activity/Vol] 74 U/L Normal 38-113 [facility] Comment on above: Order Comment: Speci men Type: BLOOD SPECIMENOrdering Facility: [facility] Address: [address] [place] [address] Performed By: #### 2 4323-8 ####[facility]ORATORYCLIA [id number] [address] ALT With P-5'-P [Catalytic activity/Vol] 50 U/L Normal 10-54 [facility] Comment on above: Order Comment: Speci men Type: BLOOD SPECIMENOrdering Facility: [facility] Address: [address] [place] [address] Performed By: #### 2 4323-8 ####[facility]ORATORYCLIA [id number] [address] Anion gap [Moles/Vol] 12 mmol/L Normal 9-18 [facility] Comment on above: Order Comment: Speci men Type: BLOOD SPECIMENOrdering Facility: [facility] Address: [address] [place] [address] Performed By: #### 2 4323-8 ####[facility] LABORATORYCLIA [id number] [place] [address] [place] AST With P-5'-P [Catalytic activity/Vol] 36 U/L Normal 14-40 [facility] Comment on above: Order Comment: Speci men Type: BLOOD SPECIMENOrdering Facility: [facility] Address: [address] [place] [address] Performed By: #### 2 4323-8 ####[facility]ORATORYCLIA [id number] [place] [address] [place] Bilirubin [Mass/Vol] 0.5 mg/dL Normal 0.2-1.3 [facility] Comment on above: Order Comment: Speci men Type: BLOOD SPECIMENOrdering Facility: [facility] Address: [address] [place] [address] Performed By: #### 2 4323-8 ####[facility] LABORATORYCLIA [id number] [address] [place] Calcium [Mass/Vol] 8.8 mg/dL Normal 8.5-10.2 [facility] Comment on above: Order Comment: Speci men Type: BLOOD SPECIMENOrdering Facility: [facility] Address: [address] [place] [address] Performed By: #### 2 4323-8 ####[facility] LABORATORYCLIA [id number] [place] [address] [place] Chloride [Moles/Vol] 126 mmol/L High 97-105 [facility] Comment on above: Order Comment: Speci men Type: BLOOD SPECIMENOrdering Facility: [facility] Address: [address] [place] [address] Performed By: #### 2 4323-8 ####[facility]ORATORYCLIA [id number] [place] [address] [place] CO2 [Moles/Vol] 24 mmol/L Normal 22-30 [facility] Comment on above: Order Comment: Speci men Type: BLOOD SPECIMENOrdering Facility: [facility] Address: [address] [address] Performed By: #### 2 4323-8 ####[facility] LABORATORYCLIA [id number] [address] STATES [place] Creatinine [Mass/Vol] 0.84 mg/dL Normal 0.73-1.22 [facility] Comment on above: Order Comment: Shira francia Type: BLOOD SPECIMENOrdering Facility: [facility] Address: [address] [place] [address] Performed By: #### 2 4323-8 ####[facility] LABORATORYCLIA [id number] [address] [place] GFR/1.73 sq M.predicted MDRD (S/P/Bld) [Vol rate/Area] mL/min/{1.73_m2} Normal [facility] Comment on above: Order Comment: Johncara feldman Type: BLOOD SPECIMENOrdering Facility: [facility] Address: [address] [place] [address] Result Comment: >60e GFR (Estimated GFR) Units [...] actual GFR. Performed By: #### 2 4323-8 ####[facility] LABORATORYCLIA [id number] [address] [place] Glucose [Mass/Vol] 142 mg/dL High 74-99 [facility] Comment on above: Order Comment: Shira feldman Type: BLOOD SPECIMENOrdering Facility: [facility] Address: [address] [address] Result Comment: The [place] [employer] (ADA) provides guidance for cutoff [...] Standards of Medical Care in Diabetes 2016, [place] [employer]. Diabetes Care. 2016.39(Suppl 1). Performed By: #### 2 4323-8 ####[facility]ORATORYCLIA [id number] [place] [address] [place] Potassium [Moles/Vol] 3.8 mmol/L Normal 3.7-5.1 [facility] Comment on above: Order Comment: Speci men Type: BLOOD SPECIMENOrdering Facility: [facility] Address: [address] [place] [address] Performed By: #### 2 4323-8 ####[facility] LABORATORYCLIA [id number] [place] [address] [place] Protein [Mass/Vol] 6.1 g/dL Low 6.3-8.0 [facility] Comment on above: Order Comment: Johni francia Type: BLOOD SPECIMENOrdering Facility: [facility] Address: [address] [place] [address] Performed By: #### 2 4323-8 ####[facility] LABORATORYCLIA [id number] [place] [address] [place] Sodium [Moles/Vol] 162 mmol/L High 136-144 [facility] Comment on above: Order Comment: Johni men Type: BLOOD SPECIMENOrdering Facility: [facility] Address: [address] [address] Performed By: #### 2 4323-8 ####[facility]ORATORYCLIA [id number] [place] [address] [place] Urea nitrogen [Mass/Vol] 33 mg/dL High 9-24 [facility] Comment on above: Order Comment: Speci men Type: BLOOD SPECIMENOrdering Facility: [facility] Address: [address] [place] [address] Performed By: #### 2 4323-8 ####[facility]ORATORYCLIA [id number] [address] [place] Creatinine Unsp time (U) [Ma ss/Vol]on 06-15-2021 Creatinine (U) [Mass/Vol] 87.0 mg/dL Normal 46.8-314.5 [facility] Comment on above: Order Comment: Speci men Type: URINE SPECIMENOrdering Facility: [facility] Address: [address] [place] [address] Performed By: #### U TPR, 50265-4, 05998-5, 56854-8 ####[facility] LABORATORYCLIA [id number] [address] [place] HIGH SENSITIVITY TROPONIN To n 06-15-2021 HIGH SENSITIVITY TAMIKO 23 ng/L High <12 [facility] Comment on above: Order Comment: Speci men Type: BLOOD SPECIMENOrdering Facility: [facility] Address: [address] [place] [address] Result Comment: When assessing risk for acute [...] day MACE. Performed By: #### P ROCAL, 70485-4, HSTNT ####[facility]ORATORYCLIA [id number] [place] [address] [place] Lactate (Bld) [Moles/Vol]on 06-15-2021 Lactate [Moles/Vol] 0.8 mmol/L Normal 0.5-2.2 [facility] Comment on above: Order Comment: Speci men Type: BLOOD SPECIMENOrdering Facility: [facility] Address: [address] [place] [address] Performed By: #### 3 2693-4 ####[facility] LABORATORYCLIA [id number] [address] STATES OF [facility] Magnesium [facility]-ncon 06-15 Magnesium [Mass/Vol] 3.0 mg/dL High 1.7-2.3 [facility] Comment on above: Order Comment: Speci men Type: BLOOD SPECIMEN Performed By: #### 2 4321-2, 2777-1, 93455-6 ####[facility]ORATORYCLIA [id number] [address] NT-proBNP [facility] 06-15 Natriuretic peptide.B prohormone N-Terminal [Mass/Vol] 265 pg/mL High <125 [facility] Comment on above: Order Comment: Speci men Type: BLOOD SPECIMENOrdering Facility: [facility] Address: [address] [place] [address] Performed By: #### P ROCAL, 31843-1, HSTNT ####[facility] LABORATORYCLIA [id number] [address] [place] Osmolality Uron 06-15-2021 Osmolality (U) [Osmolality] 606 mosm/kg Normal 50-1,200 [facility] Comment on above: Order Comment: Speci men Type: URINE SPECIMENOrdering Facility: [facility] Address: [address] [place] [address] Performed By: #### 2 695-5 ####[facility] LABORATORYCLIA [id number] [address] STATES [place] PROCALCITONIN (LAB)on 2021 Procalcitonin [Mass/Vol] 0.21 ng/mL High <0.09 [facility] Comment on above: Order Comment: Speci men Type: BLOOD SPECIMENOrdering Facility: [facility] Address: [address] [place] [address] Result Comment: For a guided interpretation of test results, please visit the Change in Procalcitonin Calculator, [email or web address]. Performed By: #### P JULIANNE, 2951-2 ####[facility]ORATORYCLIA [id number] [address] Procalcitonin [Mass/Vol] 0.17 ng/mL High <0.09 [facility] Comment on above: Order Comment: Speci men Type: BLOOD SPECIMENOrdering Facility: [facility] Address: [address] [place] [address] Result Comment: For a guided interpretation of test results, please visit the Change in Procalcitonin Calculator, [email or web address]. Performed By: #### P JULIANNE, 74093-8, HSTNT ####[facility] HE[facility] SERVICESCLIA [id number] [address] PROTEIN RANDOM URon 06-15-19 22 Protein (U) [Mass/Vol] 175 mg/dL High 0-20 [facility] Comment on above: Order Comment: Speci men Type: URINE SPECIMENOrdering Facility: [facility] Address: [address] [place] [address] Performed By: #### U TPR, 96830-3, 69094-9, 61013-8 ####[facility] LABORATORYCLIA [id number] [address] OF [facility] PT panel Coag (PPP)on 2021 INR Coag (PPP) [Relative time] 1.1 {INR} Normal <1.4 [facility] Comment on above: Order Comment: Speci men Type: BLOOD SPECIMENOrdering Facility: [facility] Address: [address] [place] [address] Result Comment: Yris min K Antagonist (VKA) Therapeutic Range: INR 2 to 3 (Target INR of 2.5)Note: For patients treated with VKA drugs, such as warfarin, the [place] [employer] 2012 Guideline recommends [...] al. Chest 2012, 141:7S-47SNishimura RA, et al. [facility] 2017, 70: 252-289 Performed By: #### 3 4528-0, 02390-5 ####[facility] LABORATORYCLIA [id number] [place] [address] [place] PT Coag (PPP) [Time] 11.4 s Normal <13.1 [facility] Comment on above: Order Comment: Speci men Type: BLOOD SPECIMENOrdering Facility: [facility] Address: [address] [place] [address] Performed By: #### 3 4528-0, 52879-2 ####[facility] SERVICESCLIA [id number] [place] [address] [place] Phosphate SerPl-mCncon 06-15 Phosphate [Mass/Vol] 2.6 mg/dL Low 2.7-4.8 [facility] Comment on above: Order Comment: Speci men Type: BLOOD SPECIMEN Performed By: #### 2 4321-2, 2777-1, 53303-8 ####[facility] LABORATORYCLIA [id number] [place] [address] [place] Sodium ?Tm Ur-sCncon 022 Sodium Unsp time (U) [Moles/Vol] 34 mmol/L Normal 14-216 [facility] Comment on above: Order Comment: Speci men Type: URINE SPECIMENOrdering Facility: [facility] Address: [address] [place] [address] Performed By: #### U TPR, 37094-2, 25511-7, 64696-3 ####[facility]ORATORYCLIA [id number] [address] [place] Sodium SerPl-sCncon 06-15-19 22 Sodium [Moles/Vol] 159 mmol/L High 136-144 [facility] Comment on above: Order Comment: Speci men Type: BLOOD SPECIMENOrdering Facility: [facility] Address: [address] [place] [address] Performed By: #### P JULIANNE, 2951-2 ####[facility] LABORATORYCLIA [id number] [address] [place] THERAPY NTon 06-15-2021 THERAPY NT Normal [facility] Urinalysis complete panel (U )on 06-15-2021 Bacteria LM.HPF (Urine sed) [#/Area] None Seen Normal None Seen [facility] Comment on above: Order Comment: Speci men Type: URINE SPECIMENOrdering Facility: [facility] Address: [address] [place] [address] Performed By: #### 2 4356-8 ####[facility] SERVICESCLIA [id number] [address] STATES [facility] Bilirubin Ql (U) Negative Normal Negative [facility] Comment on above: Order Comment: Speci men Type: URINE SPECIMENOrdering Facility: [facility] Address: [address] [place] [address] Performed By: #### 2 4356-8 ####[facility]ORATORYCLIA [id number] [address] [place] Clarity (Unsp spec) Cloudy Abnormal Clear [facility] Comment on above: Order Comment: Speci men Type: URINE SPECIMENOrdering Facility: [facility] Address: [address] [place] [address] Performed By: #### 2 4356-8 ####[facility]ORATORYCLIA [id number] [address] Color (U) Yellow Normal Yellow [facility] Comment on above: Order Comment: Speci men Type: URINE SPECIMENOrdering Facility: [facility] Address: [address] [place] [address] Performed By: #### 2 4356-8 ####[facility]ORATORYCLIA [id number] [address] Epithelial cells LM.HPF (Urine sed) [#/Area] 7.1 /[HPF] Normal [facility] Comment on above: Order Comment: Speci men Type: URINE SPECIMENOrdering Facility: [facility] Address: [address] [place] [address] Performed By: #### 2 4356-8 ####[facility]ORATORYCLIA [id number] [address] Glucose Test strip (U) [Mass/Vol] Negative Normal Negative [facility] Comment on above: Order Comment: Speci men Type: URINE SPECIMENOrdering Facility: [facility] Address: [address] [place] [address] Performed By: #### 2 4356-8 ####[facility]ORATORYCLIA [id number] [address] Granular casts (Urine sed) [#/Area] /[LPF] Abnormal 0 /LPF [facility] Comment on above: Order Comment: Speci men Type: URINE SPECIMENOrdering Facility: [facility] Address: [address] [place] [address] Performed By: #### 2 4356-8 ####[facility]ORATORYCLIA [id number] [address] Hemoglobin Ql (U) Moderate Abnormal Negative [facility] Comment on above: Order Comment: Speci men Type: URINE SPECIMENOrdering Facility: [facility] Address: [address] [place] [address] Performed By: #### 2 4356-8 ####[facility] LABORATORYCLIA [id number] [address] Hyaline casts (Urine sed) [#/Area] /[LPF] Abnormal 0 /LPF [facility] Comment on above: Order Comment: Speci men Type: URINE SPECIMENOrdering Facility: [facility] Address: [address] [place] [address] Performed By: #### 2 4356-8 ####[facility] LABORATORYCLIA [id number] [address] Ketones Ql (U) Negative Normal Negative [facility] Comment on above: Order Comment: Speci men Type: URINE SPECIMENOrdering Facility: [facility] Address: [address] [place] [address] Performed By: #### 2 4356-8 ####[facility]ATORYCLIA [id number] [address] Leukocyte esterase Test strip Ql (U) Negative Normal Negative [facility] Comment on above: Order Comment: Speci men Type: URINE SPECIMENOrdering Facility: [facility] Address: [address] [place] [address] Performed By: #### 2 4356-8 ####[facility]ORATORYCLIA [id number] [address] Nitrite Ql (U) Negative Normal Negative [facility] Comment on above: Order Comment: Speci men Type: URINE SPECIMENOrdering Facility: [facility] Address: [address] [place] [address] Performed By: #### 2 4356-8 ####[facility]ORATORYCLIA [id number] [address] pH (U) 6.0 [pH] Normal 5.0-8.0 [facility] Comment on above: Order Comment: Speci men Type: URINE SPECIMENOrdering Facility: [facility] Address: [address] [place] [address] Performed By: #### 2 4356-8 ####[facility]ORATORYCLIA [id number] [address] Protein (U) [Mass/Vol] 100 mg/dL Abnormal Negative [facility] Comment on above: Order Comment: Speci men Type: URINE SPECIMENOrdering Facility: [facility] Address: [address] [place] [address] Performed By: #### 2 4356-8 ####[facility]ORATORYCLIA [id number] [address] RBC LM.HPF (Urine sed) [#/Area] 0-3 /HPF Normal 0-3 /HPF [facility] Comment on above: Order Comment: Speci men Type: URINE SPECIMENOrdering Facility: [facility] Address: [address] [place] [address] Performed By: #### 2 4356-8 ####[facility]ORATORYCLIA [id number] [address] Specific gravity (U) [Rel density] 1.024 Normal 1.005-1.030 [facility] Comment on above: Order Comment: Speci men Type: URINE SPECIMENOrdering Facility: [facility] Address: [address] [place] [address] Performed By: #### 2 4356-8 ####[facility]ORATORYCLIA [id number] [address] Urobilinogen Ql (U) 0.2 EU/dL Normal 0.2-1.0 EU/dL [facility] Comment on above: Order Comment: Speci men Type: URINE SPECIMENOrdering Facility: [facility] Address: [address] [place] [address] Performed By: #### 2 4356-8 ####[facility] LABORATORYCLIA [id number] [address] WBC LM.HPF (Urine sed) [#/Area] 0-5 /HPF Normal 0-5 /HPF [facility] Comment on above: Order Comment: Speci men Type: URINE SPECIMENOrdering Facility: [facility] Address: [address] [place] [address] Performed By: #### 2 4356-8 ####[facility]ORATORYCLIA [id number] [place] [address] [place] XR CHEST 1V FRONTALon 2021 XR CHEST 1V FRONTAL Normal [facility] XR CHEST 1V FRONTAL PORTon 0 06-15-2021 XR CHEST 1V FRONTAL PORT Normal [facility] XR CHEST 1V FRONTAL PORT Normal [facility] aPTT PPPon 06-15-2021 aPTT Coag (PPP) [Time] 30.9 s Normal 23.0-32.4 [facility] Comment on above: Order Comment: Speci men Type: BLOOD SPECIMENOrdering Facility: [facility] Address: [facility] [place] [address] Performed By: #### 3 4528-0, 25841-8 ####[facility] LABORATORYCLIA [id number] [address] [id number] [place] Basic metabolic 2000 panelon 06-14-2021 Anion gap [Moles/Vol] 8 mmol/L Low 9-18 [facility] Comment on above: Order Comment: Speci men Type: BLOOD SPECIMEN Performed By: #### 2 4321-2, 2776-05, ####[facility]ORATORYCLIA [id number] [place] [address] [place] Calcium [Mass/Vol] 8.9 mg/dL Normal 8.5-10.2 [facility] Comment on above: Order Comment: Speci men Type: BLOOD SPECIMEN Performed By: #### 2 4321-2, 2776-05, ####[facility]ATORYCLIA [id number] [place] [address] [place] Chloride [Moles/Vol] 121 mmol/L High 97-105 [facility] Comment on above: Order Comment: Speci men Type: BLOOD SPECIMEN Performed By: #### 2 4321-2, 2776-05, ####[facility]ORATORYCLIA [id number] [place] [address] [place] CO2 [Moles/Vol] 30 mmol/L Normal 22-30 [facility] Comment on above: Order Comment: Speci men Type: BLOOD SPECIMEN Performed By: #### 2 4321-2, 2776-05, ####[facility]ORATORYCLIA [id number] [address] [place] Creatinine [Mass/Vol] 0.78 mg/dL Normal 0.73-1.22 [facility] Comment on above: Order Comment: Speci men Type: BLOOD SPECIMEN Performed By: #### 2 4321-2, 2776-05, ####[facility] LABORATORYCLIA [id number] [address] [place] GFR/1.73 sq M.predicted MDRD (S/P/Bld) [Vol rate/Area] mL/min/{1.73_m2} Normal [facility] Comment on above: Order Comment: [...] GFR. Performed By: #### 2 4321-2, 2776-05, ####[facility]ORATORYCLIA [id number] [place] [address] [place] Glucose [Mass/Vol] 132 mg/dL High 74-99 [facility] Comment on above: Order Comment: Speci men Type: BLOOD SPECIMEN Result Comment: The [place] [employer] (ADA) provides guidance for cutoff [...] Standards of Medical Care in Diabetes 2016, [place] [employer]. Diabetes Care. 2016.39(Suppl 1). Performed By: #### 2 4321-2, 2776-05, ####[facility] LABORATORYCLIA [id number] [address] STATES OF [facility] [facility] Potassium [Moles/Vol] 3.7 mmol/L Normal 3.7-5.1 [facility] Comment on above: Order Comment: Speci men Type: BLOOD SPECIMEN Performed By: #### 2 4321-2, 2776-05, ####[facility]ATORYCLIA [id number] [address] STATES [facility] Sodium [Moles/Vol] 159 mmol/L High 136-144 [facility] Comment on above: Order Comment: Speci men Type: BLOOD SPECIMEN Performed By: #### 2 4321-2, 2776-05, ####[facility]ORYCLIA [id number] [address] STATES [facility] Urea nitrogen [Mass/Vol] 35 mg/dL High 9-24 [facility] Comment on above: Order Comment: Speci men Type: BLOOD SPECIMEN Performed By: #### 2 4321-2, 2776-05, ####[facility]ORYCLIA [id number] [address] [place] CASE MANAGEMon 06-14-2021 CASE MANAGEM Normal [facility] CBC panel Auto (Bld)on 06-14 Erythrocyte distribution width (RBC) [Ratio] 16.2 % High 11.5-15.0 [facility] Comment on above: Order Comment: Speci men Type: BLOOD SPECIMEN Performed By: #### 5 8410-2 ####[facility]ORYCLIA [id number] [address] Hematocrit (Bld) [Volume fraction] 35.2 % Low 39.0-51.0 [facility] Comment on above: Order Comment: Speci men Type: BLOOD SPECIMEN Performed By: #### 5 8410-2 ####[facility]ORYCLIA [id number] [address] Hemoglobin (Bld) [Mass/Vol] 10.1 g/dL Low 13.0-17.0 [facility] Comment on above: Order Comment: Speci men Type: BLOOD SPECIMEN Performed By: #### 5 8410-2 ####[facility]ORYCLIA [id number] [address] MCH (RBC) [Entitic mass] 27.2 pg Normal 26.0-34.0 [facility] Comment on above: Order Comment: Speci men Type: BLOOD SPECIMEN Performed By: #### 5 8410-2 ####[facility]ORYCLIA [id number] [address] MCHC (RBC) [Mass/Vol] 28.7 g/dL Low 30.5-36.0 [facility] Comment on above: Order Comment: Speci men Type: BLOOD SPECIMEN Performed By: #### 5 8410-2 ####[facility]ORYCLIA [id number] [address] MCV (RBC) [Entitic vol] 94.6 fL Normal 80.0-100.0 [facility] Comment on above: Order Comment: Speci men Type: BLOOD SPECIMEN Performed By: #### 5 8410-2 ####[facility]ORYCLIA [id number] [address] Nucleated RBC (Bld) [#/Vol] 10*3/uL Normal <0.01 [facility] Comment on above: Order Comment: Speci men Type: BLOOD SPECIMEN Performed By: #### 5 8410-2 ####[facility]ORYCLIA [id number] [address] Platelet mean volume (Bld) [Entitic vol] 11.0 fL Normal 9.0-12.7 [facility] Comment on above: Order Comment: Speci men Type: BLOOD SPECIMEN Performed By: #### 5 8410-2 ####[facility]ORYCLIA [id number] [address] Platelets (Bld) [#/Vol] 287 10*3/uL Normal 150-400 [facility] Comment on above: Order Comment: Speci men Type: BLOOD SPECIMEN Performed By: #### 5 8410-2 ####[facility]ORYCLIA [id number] [address] RBC (Bld) [#/Vol] 3.72 10*6/uL Low 4.20-6.00 [facility] Comment on above: Order Comment: Speci men Type: BLOOD SPECIMEN Performed By: #### 5 8410-2 ####[facility]ORYCLIA [id number] [address] WBC (Bld) [#/Vol] 12.23 10*3/uL High 3.70-11.00 [facility] Comment on above: Order Comment: Speci men Type: BLOOD SPECIMEN Performed By: #### 5 8410-2 ####[facility]ORYCLIA [id number] [address] Comprehensive metabolic 2000 panelon 06-14-2021 Albumin [Mass/Vol] 3.1 g/dL Low 3.9-4.9 [facility] Comment on above: Order Comment: Speci men Type: BLOOD SPECIMEN Performed By: #### 2 4323-8, HSTNT, 2777-1, 03312-2 ####[facility]ORYCLIA [id number] [address] ALP [Catalytic activity/Vol] 72 U/L Normal 38-113 [facility] Comment on above: Order Comment: Speci men Type: BLOOD SPECIMEN Performed By: #### 2 4323-8, HSTNT, 2776-05, ####[facility]ORATORYCLIA [id number] [place], [place] [id number] [place] [address] ALT With P-5'-P [Catalytic activity/Vol] 57 U/L High 10-54 [facility] Comment on above: Order Comment: Speci men Type: BLOOD SPECIMEN Performed By: #### 2 4323-8, HSTNT, 2776-05, ####[facility]ATORYCLIA [id number] [place], [place] [address] [place] [address] OF [facility] Anion gap [Moles/Vol] 9 mmol/L Normal 9-18 [facility] Comment on above: Order Comment: Speci men Type: BLOOD SPECIMEN Performed By: #### 2 4323-8, HSTNT, 2776-05, ####[facility]ORYCLIA [id number] [address] AST With P-5'-P [Catalytic activity/Vol] 33 U/L Normal 14-40 [facility] Comment on above: Order Comment: Speci men Type: BLOOD SPECIMEN Performed By: #### 2 4323-8, HSTNT, 2776-05, ####[facility]ORYCLIA [id number] [address] OF [facility] Bilirubin [Mass/Vol] 0.5 mg/dL Normal 0.2-1.3 [facility] Comment on above: Order Comment: Speci men Type: BLOOD SPECIMEN Performed By: #### 2 4323-8, HSTNT, 2776-05, ####[facility]ORYCLIA [id number] [address] Calcium [Mass/Vol] 8.8 mg/dL Normal 8.5-10.2 [facility] Comment on above: Order Comment: Speci men Type: BLOOD SPECIMEN Performed By: #### 2 4323-8, HSTNT, 2776-05, ####[facility]ATORYCLIA [id number] [place], [place] [id number] [place] [address] [place] Chloride [Moles/Vol] 124 mmol/L High 97-105 [facility] Comment on above: Order Comment: Speci men Type: BLOOD SPECIMEN Performed By: #### 2 4323-8, HSTNT, 2776-05, ####[facility]ORYCLIA [id number] [address] [place] CO2 [Moles/Vol] 29 mmol/L Normal 22-30 [facility] Comment on above: Order Comment: Speci men Type: BLOOD SPECIMEN Performed By: #### 2 4323-8, HSTNT, 2776-05, ####[facility]ORYCLIA [id number] [address] [place] Creatinine [Mass/Vol] 0.73 mg/dL Normal 0.73-1.22 [facility] Comment on above: Order Comment: Speci men Type: BLOOD SPECIMEN Performed By: #### 2 4323-8, HSTNT, 2776-05, ####[facility]ORYCLIA [id number] [address] [place] GFR/1.73 sq M.predicted MDRD (S/P/Bld) [Vol rate/Area] mL/min/{1.73_m2} Normal [facility] Comment on above: Order Comment: [...] GFR. Performed By: #### 2 4323-8, HSTNT, ####[facility]ATORYCLIA [id number] [place] [address] [place] Glucose [Mass/Vol] 137 mg/dL High 74-99 [facility] Comment on above: Order Comment: Speci men Type: BLOOD SPECIMEN Result Comment: The [place] [employer] (ADA) provides guidance for cutoff [...] Standards of Medical Care in Diabetes 2016, [place] [employer]. Diabetes Care. 2016.39(Suppl 1). Performed By: #### 2 4323-8, HSTNT, ####[facility]ATORYCLIA [id number] [place] [address] [place] Potassium [Moles/Vol] 3.6 mmol/L Low 3.7-5.1 [facility] Comment on above: Order Comment: Speci men Type: BLOOD SPECIMEN Performed By: #### 2 4323-8, HSTNT, ####[facility]ORYCLIA [id number] [place] [address] [place] Protein [Mass/Vol] 5.9 g/dL Low 6.3-8.0 [facility] Comment on above: Order Comment: Speci men Type: BLOOD SPECIMEN Performed By: #### 2 4323-8, HSTNT, ####[facility]ATORYCLIA [id number] [place] [address] [place] Sodium [Moles/Vol] 162 mmol/L High 136-144 [facility] Comment on above: Order Comment: Speci men Type: BLOOD SPECIMEN Performed By: #### 2 4323-8, HSTNT, 2776-05, ####[facility]ORYCLIA [id number] [address] STATES [facility] Urea nitrogen [Mass/Vol] 33 mg/dL High 9-24 [facility] Comment on above: Order Comment: Speci men Type: BLOOD SPECIMEN Performed By: #### 2 4323-8, HSTNT, 2776-05, ####[facility]ATORYCLIA [id number] [address] HIGH SENSITIVITY TROPONIN To n 06-14-2021 HIGH SENSITIVITY TAMIKO 22 ng/L High <12 [facility] Comment on [...] day MACE. Performed By: #### H STNT ####[facility]ATORYCLIA [id number] [address] HIGH SENSITIVITY TAMIOK 22 ng/L High <12 [facility] Comment on [...] Performed By: #### 2 4323-8, HSTNT, 2776-05, ####[facility]ATORYCLIA [id number] [address] Magnesium SerPl-mCncon 06-14 Magnesium [Mass/Vol] 2.9 mg/dL High 1.7-2.3 [facility] Comment on above: Order Comment: Speci men Type: BLOOD SPECIMEN Performed By: #### 2 4323-8, HSTNT, 2776-05, ####[facility]ATORYCLIA [id number] [place], [place] [id number] [place] [address] STATES OF [facility] Magnesium [Mass/Vol] 3.0 mg/dL High 1.7-2.3 [facility] Comment on above: Order Comment: Speci men Type: BLOOD SPECIMEN Performed By: #### 2 4321-2, 2776-, ####[facility]ATORYCLIA [id number] [address] OF [facility] NURSING PROGon 06-14-2021 NURSING PROG Normal [facility] NUTRITIONon 06-14-2021 NUTRITION Normal [facility] Phosphate SerPl-mCncon 06-14 Phosphate [Mass/Vol] 2.4 mg/dL Low 2.7-4.8 [facility] Comment on above: Order Comment: Speci men Type: BLOOD SPECIMEN Performed By: #### 2 4323-8, HSTNT, 2776-05, ####[facility]ORYCLIA [id number] [address] STATES OF [facility] Phosphate [Mass/Vol] 3.2 mg/dL Normal 2.7-4.8 [facility] Comment on above: Order Comment: Speci men Type: BLOOD SPECIMEN Performed By: #### 2 4321-2, 2776-05, ####[facility]ATORYCLIA [id number] [place], [place] [address] [place] [address] [place] THERAPY NTon 06-14-2021 THERAPY NT Normal [facility] THERAPY NT Normal [facility] THERAPY NT Normal [facility] US DVT LOWER BILon US DVT LOWER RAINER Normal [facility] ALLIED HEALTHon 06-13-2021 ALLIED HEALTH Normal [facility] Basic metabolic 2000 panelon 06-13-2021 Anion gap [Moles/Vol] 7 mmol/L Low 9-18 [facility] Comment on above: Order Comment: Speci men Type: BLOOD SPECIMEN Performed By: #### 2 4321-2, , 2776-05 ####[facility]ATORYCLIA [id number] [address] STATES OF [facility] Calcium [Mass/Vol] 8.8 mg/dL Normal 8.5-10.2 [facility] Comment on above: Order Comment: Speci men Type: BLOOD SPECIMEN Performed By: #### 2 4321-2, , 2776-05 ####[facility]ORYCLIA [id number] [address] STATES OF [facility] Chloride [Moles/Vol] 120 mmol/L High 97-105 [facility] Comment on above: Order Comment: Speci men Type: BLOOD SPECIMEN Performed By: #### 2 4321-2, , 2776-05 ####[facility]ORYCLIA [id number] [address] [place] CO2 [Moles/Vol] 28 mmol/L Normal 22-30 [facility] Comment on above: Order Comment: Speci men Type: BLOOD SPECIMEN Performed By: #### 2 4321-2, , 2776-05 ####[facility]ORYCLIA [id number] [address] [place] Creatinine [Mass/Vol] 0.78 mg/dL Normal 0.73-1.22 [facility] Comment on above: Order Comment: Speci men Type: BLOOD SPECIMEN Performed By: #### 2 4321-2, , 2776-05 ####[facility]ATORYCLIA [id number] [address] [place] GFR/1.73 sq M.predicted MDRD (S/P/Bld) [Vol rate/Area] mL/min/{1.73_m2} Normal [facility] Comment on above: Order Comment: [...] Performed By: #### 2 4321-2, , 2776-05 ####[facility]ATORYCLIA [id number] [place] [address] [place] Glucose [Mass/Vol] 126 mg/dL High 74-99 [facility] Comment on above: Order Comment: [facility] Type: BLOOD SPECIMEN Result Comment: The [place] Diabetes [employer] (ADA) provides guidance for cutoff [...] Standards of Medical Care in Diabetes 2016, [place] [employer]. Diabetes Care. 2016.39(Suppl 1). Performed By: #### 2 4321-2, , 2776-05 ####[facility]ATORYCLIA [id number] [place] [address] [place] Potassium [Moles/Vol] 3.6 mmol/L Low 3.7-5.1 [facility] Comment on above: Order Comment: [facility] Type: BLOOD SPECIMEN Performed By: #### 2 4321-2, , 2776-05 ####[facility]ORYCLIA [id number] [address] [place] Sodium [Moles/Vol] 155 mmol/L High 136-144 [facility] Comment on above: Order Comment: Speci men Type: BLOOD SPECIMEN Performed By: #### 2 4321-2, , 2776-05 ####[facility]ATORYCLIA [id number] [place] [address] [place] Urea nitrogen [Mass/Vol] 36 mg/dL High 9-24 [facility] Comment on above: Order Comment: Speci men Type: BLOOD SPECIMEN Performed By: #### 2 4321-2, , 2776-05 ####[facility]ATORYCLIA [id number] [place], [place] [address] [place] [address] [place] Anion gap [Moles/Vol] 6 mmol/L Low 9-18 [facility] Comment on above: Order Comment: Speci men Type: BLOOD SPECIMEN Performed By: #### 2 4321-2, 2776-05, ####[facility]ATORYCLIA [id number] [place] [address] [place] Calcium [Mass/Vol] 6.5 mg/dL Low 8.5-10.2 [facility] Comment on above: Order Comment: Speci men Type: BLOOD SPECIMEN Performed By: #### 2 4321-2, 2776-05, ####[facility]ATORYCLIA [id number] [place] [address] [place] Chloride [Moles/Vol] 124 mmol/L High 97-105 [facility] Comment on above: Order Comment: Speci men Type: BLOOD SPECIMEN Performed By: #### 2 4321-2, 2776-05, ####[facility]ATORYCLIA [id number] [place] [address] [place] CO2 [Moles/Vol] 24 mmol/L Normal 22-30 [facility] Comment on above: Order Comment: Speci men Type: BLOOD SPECIMEN Performed By: #### 2 4321-2, 2777 ####[facility]ATORYCLIA [id number] [place] [address] [place] Creatinine [Mass/Vol] 0.61 mg/dL Low 0.73-1.22 [facility] Comment on above: Order Comment: Speci men Type: BLOOD SPECIMEN Performed By: #### 2 4321-2, 2776-05, ####[facility] SERVICESCLIA [id number] [place] [address] [place] GFR/1.73 sq M.predicted MDRD (S/P/Bld) [Vol rate/Area] mL/min/{1.73_m2} Normal [facility] Comment on above: Order Comment: [...] GFR. Performed By: #### 2 4321-2, 2776-05, ####[facility] [id number] [place] [address] [place] Glucose [Mass/Vol] 100 mg/dL High 74-99 [facility] Comment on above: Order Comment: [facility] Type: BLOOD SPECIMEN Result Comment: The [place] [employer] (ADA) provides guidance for cutoff [...] Standards of Medical Care in Diabetes 2016, [place] [employer]. Diabetes Care. 2016.39(Suppl 1). Performed By: #### 2 4321-2, 7-, ####[facility]ATORYCLIA [id number] [place], [place] [address] [place] [address] [place] OF [facility] Potassium [Moles/Vol] 2.7 mmol/L Low 3.7-5.1 [facility] Comment on above: Order Comment: Speci men Type: BLOOD SPECIMEN Performed By: #### 2 4321-2, 2776-, ####[facility]ATORYCLIA [id number] [address] Sodium [Moles/Vol] 154 mmol/L High 136-144 [facility] Comment on above: Order Comment: Speci men Type: BLOOD SPECIMEN Performed By: #### 2 4321-2, 2776-05, ####[facility]ORYCLIA [id number] [address] STATES [facility] Urea nitrogen [Mass/Vol] 29 mg/dL High 9-24 [facility] Comment on above: Order Comment: Speci men Type: BLOOD SPECIMEN Performed By: #### 2 4321-2, 2776-05, ####[facility]ORYCLIA [id number] [address] CASE MANAGEMon 06-13-2021 CASE MANAGEM Normal [facility] CBC panel Auto (Bld)on 06-13 Erythrocyte distribution width (RBC) [Ratio] 15.9 % High 11.5-15.0 [facility] Comment on above: Order Comment: Speci men Type: BLOOD SPECIMEN Performed By: #### 5 8410-2 ####[facility]ORYCLIA [id number] [address] Hematocrit (Bld) [Volume fraction] 34.3 % Low 39.0-51.0 [facility] Comment on above: Order Comment: Speci men Type: BLOOD SPECIMEN Performed By: #### 5 8410-2 ####[facility]ORYCLIA [id number] [address] Hemoglobin (Bld) [Mass/Vol] 9.9 g/dL Low 13.0-17.0 [facility] Comment on above: Order Comment: Speci men Type: BLOOD SPECIMEN Performed By: #### 5 8410-2 ####[facility]ORYCLIA [id number] [address] MCH (RBC) [Entitic mass] 27.3 pg Normal 26.0-34.0 [facility] Comment on above: Order Comment: Speci men Type: BLOOD SPECIMEN Performed By: #### 5 8410-2 ####[facility]ORYCLIA [id number] [address] MCHC (RBC) [Mass/Vol] 28.9 g/dL Low 30.5-36.0 [facility] Comment on above: Order Comment: Speci men Type: BLOOD SPECIMEN Performed By: #### 5 8410-2 ####[facility]ORYCLIA [id number] [address] MCV (RBC) [Entitic vol] 94.5 fL Normal 80.0-100.0 [facility] Comment on above: Order Comment: Speci men Type: BLOOD SPECIMEN Performed By: #### 5 8410-2 ####[facility]ORYCLIA [id number] [address] Nucleated RBC (Bld) [#/Vol] 10*3/uL Normal <0.01 [facility] Comment on above: Order Comment: Speci men Type: BLOOD SPECIMEN Performed By: #### 5 8410-2 ####[facility]ORYCLIA [id number] [address] Platelet mean volume (Bld) [Entitic vol] 11.3 fL Normal 9.0-12.7 [facility] Comment on above: Order Comment: Speci men Type: BLOOD SPECIMEN Performed By: #### 5 8410-2 ####[facility]ORYCLIA [id number] [address] Platelets (Bld) [#/Vol] 269 10*3/uL Normal 150-400 [facility] Comment on above: Order Comment: Speci men Type: BLOOD SPECIMEN Performed By: #### 5 8410-2 ####[facility]ORYCLIA [id number] [address] RBC (Bld) [#/Vol] 3.63 10*6/uL Low 4.20-6.00 [facility] Comment on above: Order Comment: Speci men Type: BLOOD SPECIMEN Performed By: #### 5 8410-2 ####[facility]ORYCLIA [id number] [address] WBC (Bld) [#/Vol] 12.77 10*3/uL High 3.70-11.00 [facility] Comment on above: Order Comment: Speci men Type: BLOOD SPECIMEN Performed By: #### 5 8410-2 ####[facility]ORYCLIA [id number] [address] Gas and Carbon monoxide pane l (BldV)on 06-13-2021 Base excess Calc (BldV) [Moles/Vol] 5.7 mmol/L High 0-2 [facility] Comment on above: Order Comment: Speci men Type: VENOUS BLOOD SPECIMEN Performed By: #### 2 4344-4 ####[facility]ORYCLIA [id number] [address] Body temperature 99.5 [degF] Normal [facility] Comment on above: Order Comment: Speci men Type: VENOUS BLOOD SPECIMEN Performed By: #### 2 4344-4 ####[facility]ATORYCLIA [id number] [address] CALCIUM IONIZED, PH CORRECTED 1.24 mmol/L Normal 1.08-1.30 [facility] Comment on above: Order Comment: Speci men Type: VENOUS BLOOD SPECIMEN Performed By: #### 2 4344-4 ####[facility]ORYCLIA [id number] [address] Calcium.ionized (BldV) [Mass/Vol] 1.23 mmol/L Normal 1.08-1.30 [facility] Comment on above: Order Comment: Speci men Type: VENOUS BLOOD SPECIMEN Performed By: #### 2 4344-4 ####[facility]ORYCLIA [id number] [address] Carboxyhemoglobin (BldV) [Mass fraction] 1.2 % Normal 0.0-2.0 [facility] Comment on above: Order Comment: Speci men Type: VENOUS BLOOD SPECIMEN Result Comment: Carb oxyhemoglobin Reference Range for Smokers: 2.0-8.0% Performed By: #### 2 4344-4 ####[facility]ORYCLIA [id number] [address] CO2 (BldV) [Partial pressure] 48 mm[Hg] Normal 42-55 [facility] Comment on above: Order Comment: Speci men Type: VENOUS BLOOD SPECIMEN Performed By: #### 2 4344-4 ####[facility]ORYCLIA [id number] [address] CO2 [Moles/Vol] 28.2 mmol/L Normal 25-29 [facility] Comment on above: Order Comment: Speci men Type: VENOUS BLOOD SPECIMEN Performed By: #### 2 4344-4 ####[facility]ORYCLIA [id number] [address] CO2 adjusted to patient's actual temperature (BldV) [Partial pressure] 49 mmHg Normal 42-55 [facility] Comment on above: Order Comment: Speci men Type: VENOUS BLOOD SPECIMEN Performed By: #### 2 4344-4 ####[facility]ORYCLIA [id number] [address] Glucose [Mass/Vol] 131 mg/dL High 60-105 [facility] Comment on above: Order Comment: Speci men Type: VENOUS BLOOD SPECIMEN Performed By: #### 2 4344-4 ####[facility]ATORYCLIA [id number] [address] [place] HCO3 (Bld) [Moles/Vol] 30.6 mmol/L High 24-28 [facility] Comment on above: Order Comment: Speci men Type: VENOUS BLOOD SPECIMEN Performed By: #### 2 4344-4 ####[facility]ORATORYCLIA [id number] [address] Hematocrit (Bld) [Volume fraction] 32.8 % Low 39.0-51.0 [facility] Comment on above: Order Comment: Speci men Type: VENOUS BLOOD SPECIMEN Performed By: #### 2 4344-4 ####[facility]ORYCLIA [id number] [address] OF [facility] Hemoglobin (Bld) [Mass/Vol] 10.6 g/dL Low 13.0-17.0 [facility] Comment on above: Order Comment: Speci men Type: VENOUS BLOOD SPECIMEN Performed By: #### 2 4344-4 ####[facility]ORYCLIA [id number] [address] LITERS 6 Liters/min Normal [facility] Comment on above: Order Comment: Speci men Type: VENOUS BLOOD SPECIMEN Performed By: #### 2 4344-4 ####[facility]ORYCLIA [id number] [address] Methemoglobin (Bld) [Mass fraction] 1.0 % Normal 0.0-1.5 [facility] Comment on above: Order Comment: Speci men Type: VENOUS BLOOD SPECIMEN Performed By: #### 2 4344-4 ####[facility]ATORYCLIA [id number] [address] O2 THERAPY NC = Nasal Cannula Normal [facility] Comment on above: Order Comment: Speci men Type: VENOUS BLOOD SPECIMEN Performed By: #### 2 4344-4 ####[facility]ORATORYCLIA [id number] [place], [place] [id number] [place] [address] OF [facility] Oxygen (BldV) [Partial pressure] 42 mm[Hg] Normal 35-45 [facility] Comment on above: Order Comment: Speci men Type: VENOUS BLOOD SPECIMEN Performed By: #### 2 4344-4 ####[facility]ATORYCLIA [id number] [address] Oxygen adjusted to patient's actual temperature (BldV) [Partial pressure] 43.8 mmHg Normal 35-45 [facility] Comment on above: Order Comment: Speci men Type: VENOUS BLOOD SPECIMEN Performed By: #### 2 4344-4 ####[facility]ATORYCLIA [id number] [address] Oxygen saturation in Blood 76.7 % Normal 60-85 [facility] Comment on above: Order Comment: Speci men Type: VENOUS BLOOD SPECIMEN Performed By: #### 2 4344-4 ####[facility]ATORYCLIA [id number] [address] Oxyhemoglobin (BldV) [Mass fraction] 75 % Normal 60-85 [facility] Comment on above: Order Comment: Speci men Type: VENOUS BLOOD SPECIMEN Performed By: #### 2 4344-4 ####[facility]ORYCLIA [id number] [address] [place] pH (BldV) 7.42 [pH] Normal 7.32-7.42 [facility] Comment on above: Order Comment: Speci men Type: VENOUS BLOOD SPECIMEN Performed By: #### 2 4344-4 ####[facility]ORYCLIA [id number] [address] pH adjusted to patient's actual temperature (BldV) 7.41 Normal 7.32-7.42 [facility] Comment on above: Order Comment: Speci men Type: VENOUS BLOOD SPECIMEN Performed By: #### 2 4344-4 ####[facility]ORYCLIA [id number] [place], [place] [id number] [place] [address] OF [facility] Potassium [Moles/Vol] 3.5 mmol/L Normal 3.5-5.0 [facility] Comment on above: Order Comment: Speci men Type: VENOUS BLOOD SPECIMEN Performed By: #### 2 4344-4 ####[facility]ORYCLIA [id number] [address] STATES OF [facility] Sodium [Moles/Vol] 157 mmol/L High 136-144 [facility] Comment on above: Order Comment: Speci men Type: VENOUS BLOOD SPECIMEN Performed By: #### 2 4344-4 ####[facility]ORATORYCLIA [id number] [address] OF [facility] Magnesium SerPl-mCncon 06-13 Magnesium [Mass/Vol] 3.0 mg/dL High 1.7-2.3 [facility] Comment on above: Order Comment: Speci men Type: BLOOD SPECIMEN Performed By: #### 2 4321-2, , 2776-05 ####[facility]ORYCLIA [id number] [address] OF [facility] Magnesium [Mass/Vol] 2.2 mg/dL Normal 1.7-2.3 [facility] Comment on above: Order Comment: Speci men Type: BLOOD SPECIMEN Performed By: #### 2 4321-2, 2776-05, ####[facility]ORYCLIA [id number] [address] [place] Phosphate SerPl-mCncon 06-13 Phosphate [Mass/Vol] 2.2 mg/dL Low 2.7-4.8 [facility] Comment on above: Order Comment: Speci men Type: BLOOD SPECIMEN Performed By: #### 2 4321-2, 12087-6, 2776-05 ####[facility]ORYCLIA [id number] [address] STATES OF [facility] Phosphate [Mass/Vol] 1.8 mg/dL Low 2.7-4.8 [facility] Comment on above: Order Comment: Speci men Type: BLOOD SPECIMEN Performed By: #### 2 4321-2, 2777-1, ####[facility]ORATORYCLIA [id number] [address] OF [facility] XR CHEST 1V FRONTALon 2021 XR CHEST 1V FRONTAL Normal [facility] ALLIED HEALTHon 06-12-2021 ALLIED HEALTH Normal [facility] BRIEF OP NOTon 06-12-2021 BRIEF OP NOT Normal [facility] Bacteria Fld Culton 06-12-19 Bacteria identified Cx Nom (Body fld) CULTURE, BODY FLD: No growth 5 days GRAM STAIN: No organisms seen Moderate Polymorphonuclear leukocytes Normal [facility] Comment on above: Performed By: #### 6 11-4 ####[facility]ORATORYCLIA [id number] [address] STATES OF [facility] Basic metabolic 2000 panelon 06-12-2021 Anion gap [Moles/Vol] 6 mmol/L Low 9-18 [facility] Comment on above: Order Comment: Speci men Type: BLOOD SPECIMEN Performed By: #### 2 777-1, , ####[facility]ORATORYCLIA [id number] [address] STATES OF [facility] Calcium [Mass/Vol] 8.7 mg/dL Normal 8.5-10.2 [facility] Comment on above: Order Comment: Speci men Type: BLOOD SPECIMEN Performed By: #### 2 777-1, 41025-7, ####[facility]ORATORYCLIA [id number] [address] STATES [facility] Chloride [Moles/Vol] 118 mmol/L High 97-105 [facility] Comment on above: Order Comment: Speci men Type: BLOOD SPECIMEN Performed By: #### 2 777-1, 61342-4, ####[facility]ORYCLIA [id number] [place] [address] [place] OF [facility] CO2 [Moles/Vol] 28 mmol/L Normal 22-30 [facility] Comment on above: Order Comment: Speci men Type: BLOOD SPECIMEN Performed By: #### 2 777-1, 89757-0, ####[facility]ORATORYCLIA [id number] [place] [address] [place] Creatinine [Mass/Vol] 0.77 mg/dL Normal 0.73-1.22 [facility] Comment on above: Order Comment: Speci men Type: BLOOD SPECIMEN Performed By: #### 2 777-1, , ####[facility]ORATORYCLIA [id number] [address] [place] GFR/1.73 sq M.predicted MDRD (S/P/Bld) [Vol rate/Area] mL/min/{1.73_m2} Normal [facility] Comment on above: Order Comment: [...] actual GFR. Performed By: #### 2 777-1, 51334-9, ####[facility]ORATORYCLIA [id number] [place] [id number] [place] Glucose [Mass/Vol] 116 mg/dL High 74-99 [facility] Comment on above: Order Comment: Speci men Type: BLOOD SPECIMEN Result Comment: The [place] [employer] (ADA) provides guidance for cutoff [...] Standards of Medical Care in Diabetes 2016, [place] [employer]. Diabetes Care. 2016.39(Suppl 1). Performed By: #### 2 777-1, 06500-8, ####[facility]ORATORYCLIA [id number] [address] OF [facility] Potassium [Moles/Vol] 4.0 mmol/L Normal 3.7-5.1 [facility] Comment on above: Order Comment: Speci men Type: BLOOD SPECIMEN Performed By: #### 2 777-1, , ####[facility]ORATORYCLIA [id number] [address] STATES [facility] Sodium [Moles/Vol] 152 mmol/L High 136-144 [facility] Comment on above: Order Comment: Speci men Type: BLOOD SPECIMEN Performed By: #### 2 777-1, , ####[facility]ORATORYCLIA [id number] [address] Urea nitrogen [Mass/Vol] 34 mg/dL High 9-24 [facility] Comment on above: Order Comment: Speci men Type: BLOOD SPECIMEN Performed By: #### 2 777-1, 39981-8, ####[facility]ORATORYCLIA [id number] [address] CBC panel Auto (Bld)on 06-12 Erythrocyte distribution width (RBC) [Ratio] 16.1 % High 11.5-15.0 [facility] Comment on above: Order Comment: Speci men Type: BLOOD SPECIMEN Performed By: #### 5 8410-2 ####[facility]ORATORYCLIA [id number] [address] Hematocrit (Bld) [Volume fraction] 32.8 % Low 39.0-51.0 [facility] Comment on above: Order Comment: Speci men Type: BLOOD SPECIMEN Performed By: #### 5 8410-2 ####[facility]ORATORYCLIA [id number] [address] Hemoglobin (Bld) [Mass/Vol] 9.9 g/dL Low 13.0-17.0 [facility] Comment on above: Order Comment: Speci men Type: BLOOD SPECIMEN Performed By: #### 5 8410-2 ####[facility]ORATORYCLIA [id number] [address] MCH (RBC) [Entitic mass] 28.4 pg Normal 26.0-34.0 [facility] Comment on above: Order Comment: Speci men Type: BLOOD SPECIMEN Performed By: #### 5 8410-2 ####[facility]ORATORYCLIA [id number] [address] MCHC (RBC) [Mass/Vol] 30.2 g/dL Low 30.5-36.0 [facility] Comment on above: Order Comment: Speci men Type: BLOOD SPECIMEN Performed By: #### 5 8410-2 ####[facility]ORATORYCLIA [id number] [address] MCV (RBC) [Entitic vol] 94.3 fL Normal 80.0-100.0 [facility] Comment on above: Order Comment: Speci men Type: BLOOD SPECIMEN Performed By: #### 5 8410-2 ####[facility]ORATORYCLIA [id number] [address] Nucleated RBC (Bld) [#/Vol] 10*3/uL Normal <0.01 [facility] Comment on above: Order Comment: Speci men Type: BLOOD SPECIMEN Performed By: #### 5 8410-2 ####[facility]ORATORYCLIA [id number] [address] Platelet mean volume (Bld) [Entitic vol] 11.2 fL Normal 9.0-12.7 [facility] Comment on above: Order Comment: Speci men Type: BLOOD SPECIMEN Performed By: #### 5 8410-2 ####[facility]ORATORYCLIA [id number] [address] [place] Platelets (Bld) [#/Vol] 218 10*3/uL Normal 150-400 [facility] Comment on above: Order Comment: Speci men Type: BLOOD SPECIMEN Performed By: #### 5 8410-2 ####[facility]ORATORYCLIA [id number] [address] RBC (Bld) [#/Vol] 3.48 10*6/uL Low 4.20-6.00 [facility] Comment on above: Order Comment: Speci men Type: BLOOD SPECIMEN Performed By: #### 5 8410-2 ####[facility]ORATORYCLIA [id number] [address] STATES [facility] WBC (Bld) [#/Vol] 13.33 10*3/uL High 3.70-11.00 [facility] Comment on above: Order Comment: Speci men Type: BLOOD SPECIMEN Performed By: #### 5 8410-2 ####[facility]ORATORYCLIA [id number] [address] OF [facility] CONSULT PROGon 06-12-2021 CONSULT PROG Normal [facility] CT DRN PLACE PERIT/RETROP [place] BIon 06-12-[address] PERIT/RETROP FL BI Normal [facility] HISTORY PHYSICALon HISTORY PHYSICAL Normal [facility] Magnesium SerPl-mCncon 06-12 Magnesium [Mass/Vol] 2.7 mg/dL High 1.7-2.3 [facility] Comment on above: Order Comment: Speci men Type: BLOOD SPECIMEN Performed By: #### 2 777-1, 96393-2, 35658-8 ####[facility]ORATORYCLIA [id number] [address] STATES OF [facility] PT panel Coag (PPP)on 2021 INR Coag (PPP) [Relative time] 1.1 {INR} Normal 0.9-1.3 [facility] Comment on above: Order Comment: Speci men Type: BLOOD SPECIMEN Result Comment: Yris min K Antagonist (VKA) Therapeutic Range: INR 2 to 3 (Target INR of 2.5)Note: For patients treated with VKA drugs, such as warfarin, the [place] [employer] 2012 Guideline recommends [...] of 2.5 to 3.5 (target INR of 3).Allisontt GH, et al. Chest 2012, 141:7S-47SNishimura RA, et al. [facility] 2017, 70: 252-289 Performed By: #### 3 4528-0 ####[facility]ORATORYCLIA [id number] [place] [id number] [place] STATES [facility] PT Coag (PPP) [Time] 11.9 s Normal 9.7-13.0 [facility] Comment on above: Order Comment: Speci men Type: BLOOD SPECIMEN Performed By: #### 3 4528-0 ####[facility]ORATORYCLIA [id number] [place] [id number] [facility] Phosphate SerPl-mCncon 06-12 Phosphate [Mass/Vol] 2.2 mg/dL Low 2.7-4.8 [facility] Comment on above: Order Comment: Speci men Type: BLOOD SPECIMEN Performed By: #### 2 777-1, 70824-6, 85189-9 ####[facility]ORATORYCLIA [id number] [address] STATES OF [facility] XR ABDOMEN 1V SUPINEon 06-12 XR ABDOMEN 1V SUPINE Normal [facility] ALLIED HEALTHon 06-11-2021 ALLIED HEALTH Normal [facility] Bacteria Bld Culton 06-11-19 22 Bacteria identified Cx Nom (Bld) CULTURE, BLOOD: No growth 5 days Normal [facility] Comment on above: Performed By: #### 6 00-7 ####[facility]ATORYCLIA [id number] [address] Bacteria identified Cx Nom (Bld) CULTURE, BLOOD: No growth 5 days Normal [facility] Comment on above: Performed By: #### 6 00-7 ####[facility]ATORYCLIA [id number] [address] Bacteria Ur Culton 2 Bacteria identified Cx Nom (U) CULTURE, URINE: No growth (<1,000 CFU/ml) Normal [facility] Comment on above: Performed By: #### 6 30-4 ####[facility]ATORYCLIA [id number] [address] Basic metabolic 2000 panelon 06-11-2021 Anion gap [Moles/Vol] 9 mmol/L Normal 9-18 [facility] Comment on above: Order Comment: Speci men Type: BLOOD SPECIMEN Performed By: #### 1 9123-9, 2777-1, 27447-9 ####[facility]ORATORYCLIA [id number] [address] STATES [facility] Calcium [Mass/Vol] 8.5 mg/dL Normal 8.5-10.2 [facility] Comment on above: Order Comment: Speci men Type: BLOOD SPECIMEN Performed By: #### 1 9123-9, 2777-1, 53321-0 ####[facility]ORATORYCLIA [id number] [place] [address] [place] Chloride [Moles/Vol] 118 mmol/L High 97-105 [facility] Comment on above: Order Comment: Speci men Type: BLOOD SPECIMEN Performed By: #### 1 9123-9, 2776-05, ####[facility]ORATORYCLIA [id number] [address] [place] CO2 [Moles/Vol] 27 mmol/L Normal 22-30 [facility] Comment on above: Order Comment: Speci men Type: BLOOD SPECIMEN Performed By: #### 1 9123-9, 2776-05, ####[facility]ATORYCLIA [id number] [address] [place] Creatinine [Mass/Vol] 0.75 mg/dL Normal 0.73-1.22 [facility] Comment on above: Order Comment: Speci men Type: BLOOD SPECIMEN Performed By: #### 1 9123-9, 2776-05, ####[facility]ATORYCLIA [id number] [address] [place] GFR/1.73 sq M.predicted MDRD (S/P/Bld) [Vol rate/Area] mL/min/{1.73_m2} Normal [facility] Comment on above: Order Comment: [...] GFR. Performed By: #### 1 9123-9, 27711-04, 81687-3 ####[facility]ORATORYCLIA [id number] [address] [place] Glucose [Mass/Vol] 142 mg/dL High 74-99 [facility] Comment on above: Order Comment: Speci men Type: BLOOD SPECIMEN Result Comment: The [place] [employer] (ADA) provides guidance for cutoff [...] Standards of Medical Care in Diabetes 2016, [place] [employer]. Diabetes Care. 2016.39(Suppl 1). Performed By: #### 1 9123-9, 2777-, 99767-6 ####[facility]ORATORYCLIA [id number] [address] STATES OF [facility] Potassium [Moles/Vol] 3.6 mmol/L Low 3.7-5.1 [facility] Comment on above: Order Comment: Speci men Type: BLOOD SPECIMEN Performed By: #### 1 9123-9, 2776-05, 19881-2 ####[facility]ATORYCLIA [id number] [address] Sodium [Moles/Vol] 154 mmol/L High 136-144 [facility] Comment on above: Order Comment: Speci men Type: BLOOD SPECIMEN Performed By: #### 1 9123-9, 27711-04, 71976-3 ####[facility]ATORYCLIA [id number] [address] STATES [facility] Urea nitrogen [Mass/Vol] 31 mg/dL High 9-24 [facility] Comment on above: Order Comment: Speci men Type: BLOOD SPECIMEN Performed By: #### 1 9123-9, 27711-04, 84771-7 ####[facility]ATORYCLIA [id number] [address] [place] C diff Tox gens Stl Ql MEGAN+p robeon 06-11-2021 C. difficile toxin genes MEGAN+probe Ql (Stl) Negative Normal Negative for C. difficile toxin by PCR [facility] Comment on above: Order Comment: Speci men Type: STOOL SPECIMEN Performed By: #### 5 4067-4 ####[facility]ATORYCLIA [id number] [address] [place] CBC W Auto Differential pane l (Bld)on 06-11-2021 Basophils (Bld) [#/Vol] 0.03 10*3/uL Normal <0.11 [facility] Comment on above: Order Comment: Speci men Type: BLOOD SPECIMEN Performed By: #### 5 7021-8 ####[facility]ATORYCLIA [id number] [address] Basophils/100 WBC (Bld) 0.2 % Normal [facility] Comment on above: Order Comment: Speci men Type: BLOOD SPECIMEN Performed By: #### 5 7021-8 ####[facility]ATORYCLIA [id number] [address] Differential cell count method Nom (Bld) Auto Normal [facility] Comment on above: Order Comment: Speci men Type: BLOOD SPECIMEN Performed By: #### 5 7021-8 ####[facility]ATORYCLIA [id number] [address] [place] Eosinophils (Bld) [#/Vol] 0.19 10*3/uL Normal <0.46 [facility] Comment on above: Order Comment: Speci men Type: BLOOD SPECIMEN Performed By: #### 5 7021-8 ####[facility]ATORYCLIA [id number] [address] STATES [facility] Eosinophils/100 WBC (Bld) 1.5 % Normal [facility] Comment on above: Order Comment: Speci men Type: BLOOD SPECIMEN Performed By: #### 5 7021-8 ####[facility]CLIA [id number] [address] Erythrocyte distribution width (RBC) [Ratio] 16.3 % High 11.5-15.0 [facility] Comment on above: Order Comment: Speci men Type: BLOOD SPECIMEN Performed By: #### 5 7021-8 ####[facility]ATORYCLIA [id number] [address] Hematocrit (Bld) [Volume fraction] 32.1 % Low 39.0-51.0 [facility] Comment on above: Order Comment: Speci men Type: BLOOD SPECIMEN Performed By: #### 5 7021-8 ####[facility]ATORYCLIA [id number] [address] Hemoglobin (Bld) [Mass/Vol] 9.3 g/dL Low 13.0-17.0 [facility] Comment on above: Order Comment: Speci men Type: BLOOD SPECIMEN Performed By: #### 5 7021-8 ####[facility]ATORYCLIA [id number] [address] IMMATURE GRAN % 0.6 % Normal [facility] Comment on above: Order Comment: Speci men Type: BLOOD SPECIMEN Performed By: #### 5 7021-8 ####[facility]ORATORYCLIA [id number] [address] IMMATURE GRAN ABS 0.08 k/uL Normal <0.10 [facility] Comment on above: Order Comment: Speci men Type: BLOOD SPECIMEN Performed By: #### 5 7021-8 ####[facility]ORATORYCLIA [id number] [address] Lymphocytes (Bld) [#/Vol] 1.65 10*3/uL Normal 1.00-4.00 [facility] Comment on above: Order Comment: Speci men Type: BLOOD SPECIMEN Performed By: #### 5 7021-8 ####[facility]ATORYCLIA [id number] [address] Lymphocytes/100 WBC (Bld) 12.8 % Normal [facility] Comment on above: Order Comment: Speci men Type: BLOOD SPECIMEN Performed By: #### 5 7021-8 ####[facility]ATORYCLIA [id number] [address] MCH (RBC) [Entitic mass] 27.2 pg Normal 26.0-34.0 [facility] Comment on above: Order Comment: Speci men Type: BLOOD SPECIMEN Performed By: #### 5 7021-8 ####[facility]ATORYCLIA [id number] [address] MCHC (RBC) [Mass/Vol] 29.0 g/dL Low 30.5-36.0 [facility] Comment on above: Order Comment: Speci men Type: BLOOD SPECIMEN Performed By: #### 5 7021-8 ####[facility]ATORYCLIA [id number] [address] MCV (RBC) [Entitic vol] 93.9 fL Normal 80.0-100.0 [facility] Comment on above: Order Comment: Speci men Type: BLOOD SPECIMEN Performed By: #### 5 7021-8 ####[facility]ATORYCLIA [id number] [address] Monocytes (Bld) [#/Vol] 0.68 10*3/uL Normal <0.87 [facility] Comment on above: Order Comment: Speci men Type: BLOOD SPECIMEN Performed By: #### 5 7021-8 ####[facility]ATORYCLIA [id number] [address] Monocytes/100 WBC (Bld) 5.3 % Normal [facility] Comment on above: Order Comment: Speci men Type: BLOOD SPECIMEN Performed By: #### 5 7021-8 ####[facility]ATORYCLIA [id number] [address] Neutrophils (Bld) [#/Vol] 10.22 10*3/uL High 1.45-7.50 [facility] Comment on above: Order Comment: Speci men Type: BLOOD SPECIMEN Performed By: #### 5 7021-8 ####[facility]ORATORYCLIA [id number] [address] Neutrophils/100 WBC (Bld) 79.6 % Normal [facility] Comment on above: Order Comment: Speci men Type: BLOOD SPECIMEN Performed By: #### 5 7021-8 ####[facility]ATORYCLIA [id number] [address] Nucleated RBC (Bld) [#/Vol] 10*3/uL Normal <0.01 [facility] Comment on above: Order Comment: Speci men Type: BLOOD SPECIMEN Performed By: #### 5 7021-8 ####[facility]ATORYCLIA [id number] [address] Nucleated RBC/100 WBC (Bld) [Ratio] 0.0 /100 WBC Normal 0.0 [facility] Comment on above: Order Comment: Speci men Type: BLOOD SPECIMEN Performed By: #### 5 7021-8 ####[facility]ATORYCLIA [id number] [address] Platelet mean volume (Bld) [Entitic vol] 11.1 fL Normal 9.0-12.7 [facility] Comment on above: Order Comment: Speci men Type: BLOOD SPECIMEN Performed By: #### 5 7021-8 ####[facility]ATORYCLIA [id number] [address] Platelets (Bld) [#/Vol] 188 10*3/uL Normal 150-400 [facility] Comment on above: Order Comment: Speci men Type: BLOOD SPECIMEN Performed By: #### 5 7021-8 ####[facility]ORYCLIA [id number] [address] RBC (Bld) [#/Vol] 3.42 10*6/uL Low 4.20-6.00 [facility] Comment on above: Order Comment: Speci men Type: BLOOD SPECIMEN Performed By: #### 5 7021-8 ####[facility]ATORYCLIA [id number] [address] WBC (Bld) [#/Vol] 12.85 10*3/uL High 3.70-11.00 [facility] Comment on above: Order Comment: Speci men Type: BLOOD SPECIMEN Performed By: #### 5 7021-8 ####[facility]ATORYCLIA [id number] [address] CBC panel Auto (Bld)on 06-11 Erythrocyte distribution width (RBC) [Ratio] 16.2 % High 11.5-15.0 [facility] Comment on above: Order Comment: Speci men Type: BLOOD SPECIMEN Performed By: #### 5 8410-2 ####[facility]ATORYCLIA [id number] [address] Hematocrit (Bld) [Volume fraction] 34.5 % Low 39.0-51.0 [facility] Comment on above: Order Comment: Speci men Type: BLOOD SPECIMEN Performed By: #### 5 8410-2 ####[facility]ATORYCLIA [id number] [address] Hemoglobin (Bld) [Mass/Vol] 10.3 g/dL Low 13.0-17.0 [facility] Comment on above: Order Comment: Speci men Type: BLOOD SPECIMEN Performed By: #### 5 8410-2 ####[facility]ATORYCLIA [id number] [address] MCH (RBC) [Entitic mass] 28.1 pg Normal 26.0-34.0 [facility] Comment on above: Order Comment: Speci men Type: BLOOD SPECIMEN Performed By: #### 5 8410-2 ####[facility]ATORYCLIA [id number] [address] MCHC (RBC) [Mass/Vol] 29.9 g/dL Low 30.5-36.0 [facility] Comment on above: Order Comment: Speci men Type: BLOOD SPECIMEN Performed By: #### 5 8410-2 ####[facility]ATORYCLIA [id number] [address] MCV (RBC) [Entitic vol] 94.3 fL Normal 80.0-100.0 [facility] Comment on above: Order Comment: Speci men Type: BLOOD SPECIMEN Performed By: #### 5 8410-2 ####[facility]ORYCLIA [id number] [address] Nucleated RBC (Bld) [#/Vol] 10*3/uL Normal <0.01 [facility] Comment on above: Order Comment: Speci men Type: BLOOD SPECIMEN Performed By: #### 5 8410-2 ####[facility]ORYCL[facility] [id number] [address] Platelet mean volume (Bld) [Entitic vol] 10.9 fL Normal 9.0-12.7 [facility] Comment on above: Order Comment: Speci men Type: BLOOD SPECIMEN Performed By: #### 5 8410-2 ####[facility] [facility]ATORYCLIA [id number] [address] Platelets (Bld) [#/Vol] 210 10*3/uL Normal 150-400 [facility] Comment on above: Order Comment: Speci men Type: BLOOD SPECIMEN Performed By: #### 5 8410-2 ####[facility]ORATORYCLIA [id number] [address] RBC (Bld) [#/Vol] 3.66 10*6/uL Low 4.20-6.00 [facility] Comment on above: Order Comment: Speci men Type: BLOOD SPECIMEN Performed By: #### 5 8410-2 ####[facility]ORATORYCLIA [id number] [address] WBC (Bld) [#/Vol] 13.03 10*3/uL High 3.70-11.00 [facility] Comment on above: Order Comment: Speci men Type: BLOOD SPECIMEN Performed By: #### 5 8410-2 ####[facility]ORATORYCLIA [id number] [address] OF [facility] CONSULT PROGon 06-11-2021 CONSULT PROG Normal [facility] CONSULT PROG Normal [facility] CONSULT PROG Normal [facility] CT ABD/PEL W IVCONon 022 CT ABD/PEL W IVCON Invalid Interpretation Code [facility] Magnesium SerPl-mCncon 06-11 Magnesium [Mass/Vol] 2.7 mg/dL High 1.7-2.3 [facility] Comment on above: Order Comment: Speci men Type: BLOOD SPECIMEN Performed By: #### 1 9123-9, 2777-1, 44013-6 ####[facility]ORYCLIA [id number] [address] OF [facility] Phosphate SerPl-mCncon 06-11 Phosphate [Mass/Vol] 2.5 mg/dL Low 2.7-4.8 [facility] Comment on above: Order Comment: Speci men Type: BLOOD SPECIMEN Performed By: #### 1 9123-9, 2777-1, 01690-0 ####[facility]ATORYCLIA [id number] [address] STATES OF [facility] Basic metabolic 2000 panelon 06-10-2021 Anion gap [Moles/Vol] 7 mmol/L Low 9-18 [facility] Comment on above: Order Comment: Speci men Type: BLOOD SPECIMEN Performed By: #### 2 777-1, 29453-3, 35061-5, HFP ####[facility]ATORYCLIA [id number] [address] STATES OF [facility] Calcium [Mass/Vol] 8.5 mg/dL Normal 8.5-10.2 [facility] Comment on above: Order Comment: Speci men Type: BLOOD SPECIMEN Performed By: #### 2 777-1, 35326-0, , [facility] ####[facility]ORATORYCLIA [id number] [address] STATES OF [facility] Chloride [Moles/Vol] 118 mmol/L High 97-105 [facility] Comment on above: Order Comment: Speci men Type: BLOOD SPECIMEN Performed By: #### 2 777-1, 72164-3, , HFP ####[facility]ATORYCLIA [id number] [address] OF [place] CO2 [Moles/Vol] 26 mmol/L Normal 22-30 [facility] Comment on above: Order Comment: Speci men Type: BLOOD SPECIMEN Performed By: #### 2 777-1, , , [facility] ####[facility]ATORYCLIA [id number] [address] STATES OF [facility] Creatinine [Mass/Vol] 0.70 mg/dL Low 0.73-1.22 [facility] Comment on above: Order Comment: Speci men Type: BLOOD SPECIMEN Performed By: #### 2 777-1, , , [facility] ####[facility]ORATORYCLIA [id number] [address] [place] GFR/1.73 sq M.predicted MDRD (S/P/Bld) [Vol rate/Area] mL/min/{1.73_m2} Normal [facility] Comment on above: Order Comment: [...] actual GFR. Performed By: #### 2 777-1, 22147-4, , [facility] ####[facility]ORATORYCLIA [id number] [place] [address] [place] Glucose [Mass/Vol] 135 mg/dL High 74-99 [facility] Comment on above: Order Comment: Speci men Type: BLOOD SPECIMEN Result Comment: The [place] Diabetes Association (ADA) provides guidance for cutoff [...] Standards of Medical Care in Diabetes 2016, [place] [employer]. Diabetes Care. 2016.39(Suppl 1). Performed By: #### 2 777-1, 49116-5, , [facility] ####[facility]ATORYCLIA [id number] [address] STATES OF [place] Potassium [Moles/Vol] 3.9 mmol/L Normal 3.7-5.1 [facility] Comment on above: Order Comment: Speci men Type: BLOOD SPECIMEN Performed By: #### 2 777-1, 88063-4, , [facility] ####[facility]ORATORYCLIA [id number] [place] [address] [place] Sodium [Moles/Vol] 151 mmol/L High 136-144 [facility] Comment on above: Order Comment: Speci men Type: BLOOD SPECIMEN Performed By: #### 2 777-1, 16649-1, , [facility] ####[facility]ORATORYCLIA [id number] [place] [address] [place] Urea nitrogen [Mass/Vol] 27 mg/dL High 9-24 [facility] Comment on above: Order Comment: Speci men Type: BLOOD SPECIMEN Performed By: #### 2 777-1, 23990-3, 28861-3, HFP ####[facility]ORATORYCLIA [id number] [address] CASE MANAGEMon 06-10-2021 CASE MANAGEM Normal [facility] CBC panel Auto (Bld)on 06-10 Erythrocyte distribution width (RBC) [Ratio] 16.2 % High 11.5-15.0 [facility] Comment on above: Order Comment: Speci men Type: BLOOD SPECIMEN Performed By: #### 5 8410-2 ####[facility]ATORYCLIA [id number] [address] Hematocrit (Bld) [Volume fraction] 34.8 % Low 39.0-51.0 [facility] Comment on above: Order Comment: Speci men Type: BLOOD SPECIMEN Performed By: #### 5 8410-2 ####[facility]ORYCLIA [id number] [address] Hemoglobin (Bld) [Mass/Vol] 10.2 g/dL Low 13.0-17.0 [facility] Comment on above: Order Comment: Speci men Type: BLOOD SPECIMEN Performed By: #### 5 8410-2 ####[facility]ATORYCLIA [id number] [address] MCH (RBC) [Entitic mass] 27.1 pg Normal 26.0-34.0 [facility] Comment on above: Order Comment: Speci men Type: BLOOD SPECIMEN Performed By: #### 5 8410-2 ####[facility]ORYCLIA [id number] [address] MCHC (RBC) [Mass/Vol] 29.3 g/dL Low 30.5-36.0 [facility] Comment on above: Order Comment: Speci men Type: BLOOD SPECIMEN Performed By: #### 5 8410-2 ####[facility]ORYCLIA [id number] [address] MCV (RBC) [Entitic vol] 92.6 fL Normal 80.0-100.0 [facility] Comment on above: Order Comment: Speci men Type: BLOOD SPECIMEN Performed By: #### 5 8410-2 ####[facility]ORYCLIA [id number] [address] Nucleated RBC (Bld) [#/Vol] 10*3/uL Normal <0.01 [facility] Comment on above: Order Comment: Speci men Type: BLOOD SPECIMEN Performed By: #### 5 8410-2 ####[facility]ORYCLIA [id number] [address] Platelet mean volume (Bld) [Entitic vol] 10.4 fL Normal 9.0-12.7 [facility] Comment on above: Order Comment: Speci men Type: BLOOD SPECIMEN Performed By: #### 5 8410-2 ####[facility]ORYCLIA [id number] [address] Platelets (Bld) [#/Vol] 206 10*3/uL Normal 150-400 [facility] Comment on above: Order Comment: Speci men Type: BLOOD SPECIMEN Performed By: #### 5 8410-2 ####[facility]ORYCLIA [id number] [address] OF [facility] RBC (Bld) [#/Vol] 3.76 10*6/uL Low 4.20-6.00 [facility] Comment on above: Order Comment: Speci men Type: BLOOD SPECIMEN Performed By: #### 5 8410-2 ####[facility]ORYCLIA [id number] [address] WBC (Bld) [#/Vol] 11.36 10*3/uL High 3.70-11.00 [facility] Comment on above: Order Comment: Speci men Type: BLOOD SPECIMEN Performed By: #### 5 8410-2 ####[facility]ORATORYCLIA [id number] [place], [place] [id number] [place] [address] HEPATIC FUNCTION PNLon 06-10 Albumin [Mass/Vol] 3.1 g/dL Low 3.9-4.9 [facility] Comment on above: Order Comment: Speci men Type: BLOOD SPECIMEN Performed By: #### 2 777-1, 45852-0, , HFP ####[facility]ATORYCLIA [id number] [place], [place] [id number] [place] [address] ALP [Catalytic activity/Vol] 73 U/L Normal 38-113 [facility] Comment on above: Order Comment: Speci men Type: BLOOD SPECIMEN Performed By: #### 2 777-1, 37179-3, , HFP ####[facility]ATORYCLIA [id number] [address] ALT With P-5'-P [Catalytic activity/Vol] 64 U/L High 10-54 [facility] Comment on above: Order Comment: Speci men Type: BLOOD SPECIMEN Performed By: #### 2 777-1, 71469-9, , HFP ####[facility]ATORYCLIA [id number] [address] AST With P-5'-P [Catalytic activity/Vol] 44 U/L High 14-40 [facility] Comment on above: Order Comment: Speci men Type: BLOOD SPECIMEN Performed By: #### 2 777-1, 21202-1, , HFP ####[facility] LABORATORYCLIA [id number] [place], [place] [address] [place] [address] OF [facility] Bilirubin [Mass/Vol] 0.5 mg/dL Normal 0.2-1.3 [facility] Comment on above: Order Comment: Speci men Type: BLOOD SPECIMEN Performed By: #### 2 777-1, 80731-5, , HFP ####[facility]ATORYCLIA [id number] [place], [place] [address] [place] [address] Bilirubin.conjugated [Mass/Vol] mg/dL Normal <0.2 [facility] Comment on above: Order Comment: Speci men Type: BLOOD SPECIMEN Performed By: #### 2 777-1, 39941-1, , [facility] ####[facility]ATORYCLIA [id number] [place] [address] [place] OF [facility] Protein [Mass/Vol] 5.7 g/dL Low 6.3-8.0 [facility] Comment on above: Order Comment: Speci men Type: BLOOD SPECIMEN Performed By: #### 2 777-1, 28756-7, , [facility] ####[facility]ATORYCLIA [id number] [place] [address] [facility] LEVETIRACETAMon 06-10-2021 levETIRAcetam [Mass/Vol] 57.7 ug/mL High 12.0-46.0 [facility] Comment on above: Order Comment: [...] developed and its performance characteristics determined by [facility]'s Isrrael Chris [facility] Pathology and Laboratory Medicine [place] ( PLMI). It has not been cleared or approved by the FDA. [facility] is regulated under CLIA as qualified to perform high complexity testing. This test is used for clinical purposes. It should not be regarded as investigational or for research. Performed By: #### L EVET ####[facility] LABCLIA [id number] [place] [address] [address] [place] Magnesium SerPl-mCncon 06-10 Magnesium [Mass/Vol] 2.7 mg/dL High 1.7-2.3 [facility] Comment on above: Order Comment: Speci men Type: BLOOD SPECIMEN Performed By: #### 2 777-1, 48346-2, , [facility] ####[facility]ORATORYCLIA [id number] [place] [address] [place] Phosphate SerPl-mCncon 06-10 Phosphate [Mass/Vol] 1.8 mg/dL Low 2.7-4.8 [facility] Comment on above: Order Comment: Speci men Type: BLOOD SPECIMEN Performed By: #### 2 777-1, 45298-1, , [facility] ####[facility]ATORYCLIA [id number] [place] [address] [place] ALLIED HEALTHon 06-09-2021 ALLIED HEALTH Normal [facility] ALLIED HEALTH Normal [facility] ALLIED HEALTH Normal [facility] ALLIED HEALTH Normal [facility] Basic metabolic 2000 panelon 06-09-2021 Anion gap [Moles/Vol] 8 mmol/L Low 9-18 [facility] Comment on above: Order Comment: Speci men Type: BLOOD SPECIMEN Performed By: #### 2 4321-2, 2776-05, ####[facility]ATORYCLIA [id number] [place] [address] [place] Calcium [Mass/Vol] 8.3 mg/dL Low 8.5-10.2 [facility] Comment on above: Order Comment: Speci men Type: BLOOD SPECIMEN Performed By: #### 2 4321-2, 2776-05, ####[facility]ATORYCLIA [id number] [place] [address] [place] Chloride [Moles/Vol] 116 mmol/L High 97-105 [facility] Comment on above: Order Comment: Speci men Type: BLOOD SPECIMEN Performed By: #### 2 4321-2, 2776-, ####[facility]ATORYCLIA [id number] [place] [address] [place] CO2 [Moles/Vol] 27 mmol/L Normal 22-30 [facility] Comment on above: Order Comment: Speci men Type: BLOOD SPECIMEN Performed By: #### 2 4321-2, 2777-, ####[facility]ATORYCLIA [id number] [place] [address] [place] Creatinine [Mass/Vol] 0.70 mg/dL Low 0.73-1.22 [facility] Comment on above: Order Comment: Spec men Type: BLOOD SPECIMEN Performed By: #### 2 4321-2, 2777-, ####[facility]ATORYCLIA [id number] [place] [address] [place] GFR/1.73 sq M.predicted MDRD (S/P/Bld) [Vol rate/Area] mL/min/{1.73_m2} Normal [facility] Comment on above: Order Comment: [...] GFR. Performed By: #### 2 4321-2, 2777-, ####[facility]ATORYCLIA [id number] [place] [address] [place] Glucose [Mass/Vol] 123 mg/dL High 74-99 [facility] Comment on above: Order Comment: Speci [facility] Type: BLOOD SPECIMEN Result Comment: The [place] Diabetes [employer] (ADA) provides guidance for cutoff [...] Standards of Medical Care in Diabetes 2016, [place] [employer]. Diabetes Care. 2016.39(Suppl 1). Performed By: #### 2 4321-2, 2776-05, ####[facility]ATORYCLIA [id number] [address] STATES OF [facility] Potassium [Moles/Vol] 3.5 mmol/L Low 3.7-5.1 [facility] Comment on above: Order Comment: Speci men Type: BLOOD SPECIMEN Performed By: #### 2 4321-2, 2776-05, ####[facility]ATORYCLIA [id number] [address] Sodium [Moles/Vol] 151 mmol/L High 136-144 [facility] Comment on above: Order Comment: Speci men Type: BLOOD SPECIMEN Performed By: #### 2 4321-2, 2776-05, ####[facility]ATORYCLIA [id number] [address] Urea nitrogen [Mass/Vol] 39 mg/dL High 9-24 [facility] Comment on above: Order Comment: Speci men Type: BLOOD SPECIMEN Performed By: #### 2 4321-2, 2776-05, ####[facility]ATORYCLIA [id number] [address] CBC panel Auto (Bld)on 06-09 Erythrocyte distribution width (RBC) [Ratio] 16.2 % High 11.5-15.0 [facility] Comment on above: Order Comment: Speci men Type: BLOOD SPECIMEN Performed By: #### 5 8410-2 ####[facility]ORYCLIA [id number] [address] Hematocrit (Bld) [Volume fraction] 33.7 % Low 39.0-51.0 [facility] Comment on above: Order Comment: Speci men Type: BLOOD SPECIMEN Performed By: #### 5 8410-2 ####[facility]ORYCLIA [id number] [address] Hemoglobin (Bld) [Mass/Vol] 10.2 g/dL Low 13.0-17.0 [facility] Comment on above: Order Comment: Speci men Type: BLOOD SPECIMEN Performed By: #### 5 8410-2 ####[facility]ORYCLIA [id number] [address] MCH (RBC) [Entitic mass] 27.4 pg Normal 26.0-34.0 [facility] Comment on above: Order Comment: Speci men Type: BLOOD SPECIMEN Performed By: #### 5 8410-2 ####[facility]ORYCLIA [id number] [address] MCHC (RBC) [Mass/Vol] 30.3 g/dL Low 30.5-36.0 [facility] Comment on above: Order Comment: Speci men Type: BLOOD SPECIMEN Performed By: #### 5 8410-2 ####[facility]ORYCLIA [id number] [address] MCV (RBC) [Entitic vol] 90.6 fL Normal 80.0-100.0 [facility] Comment on above: Order Comment: Speci men Type: BLOOD SPECIMEN Performed By: #### 5 8410-2 ####[facility]ORYCLIA [id number] [address] Nucleated RBC (Bld) [#/Vol] 10*3/uL Normal <0.01 [facility] Comment on above: Order Comment: Speci men Type: BLOOD SPECIMEN Performed By: #### 5 8410-2 ####[facility]ORYCLIA [id number] [address] Platelet mean volume (Bld) [Entitic vol] 10.3 fL Normal 9.0-12.7 [facility] Comment on above: Order Comment: Speci men Type: BLOOD SPECIMEN Performed By: #### 5 8410-2 ####[facility]ORYCLIA [id number] [address] Platelets (Bld) [#/Vol] 219 10*3/uL Normal 150-400 [facility] Comment on above: Order Comment: Speci men Type: BLOOD SPECIMEN Performed By: #### 5 8410-2 ####[facility]ATORYCLIA [id number] [address] OF [facility] RBC (Bld) [#/Vol] 3.72 10*6/uL Low 4.20-6.00 [facility] Comment on above: Order Comment: Speci men Type: BLOOD SPECIMEN Performed By: #### 5 8410-2 ####[facility]ORYCLIA [id number] [address] WBC (Bld) [#/Vol] 13.02 10*3/uL High 3.70-11.00 [facility] Comment on above: Order Comment: Speci men Type: BLOOD SPECIMEN Performed By: #### 5 8410-2 ####[facility]ATORYCLIA [id number] [address] CONSULT PROGon 06-09-2021 CONSULT PROG Normal [facility] CONSULT PROG Normal [facility] CT BRAIN WO IVCONon 06-09-[address] BRAIN WO IVCON Normal [facility] Magnesium SerPl-mCncon 06-09 Magnesium [Mass/Vol] 2.8 mg/dL High 1.7-2.3 [facility] Comment on above: Order Comment: Speci men Type: BLOOD SPECIMEN Performed By: #### 2 4321-2, 2777-1, 12357-7 ####[facility]ORATORYCLIA [id number] [address] [place] NURSING PROGon 06-09-2021 NURSING PROG Normal [facility] NUTRITIONon 06-09-2021 NUTRITION Normal [facility] PT EDon 06-09-2021 PT ED Normal [facility] Phosphate SerPl-mCncon 06-09 Phosphate [Mass/Vol] 2.2 mg/dL Low 2.7-4.8 [facility] Comment on above: Order Comment: Speci men Type: BLOOD SPECIMEN Performed By: #### 2 4321-2, 2777-1, 19321-3 ####[facility]ORATORYCLIA [id number] [address] Vancomycin random [Mass/Vol] on 06-09-2021 Vancomycin [Mass/Vol] 18.9 ug/mL Normal 10.0-20.0 [facility] Comment on above: Order Comment: Speci men Type: BLOOD SPECIMEN Result Comment: Refe rence ranges and high/low indicator flags are provided as general guidelines only. The treating physician must determine appropriate target levels/dosing based on the specific clinical situation. Performed By: #### 4 091-5 ####[facility]ORATORYCLIA [id number] [address] XR ABD 2V SUPINE W UPR/DECUB /CTLon 06-09-2021 XR ABD 2V SUPINE W UPR/DECUB/CTL Normal [facility] XR CHEST 1V FRONTALon 2021 XR CHEST 1V FRONTAL Normal [facility] XR NECK SOFT TISSUE 2V AP/LA Ton 06-09-2021 XR NECK SOFT TISSUE 2V AP/LAT Normal [facility] XR SKULL 2V AP/LATon 022 XR SKULL 2V AP/LAT Normal [facility] ALLIED HEALTHon 06-08-2021 ALLIED HEALTH Normal [facility] ANES POSTPROC EVALon 022 ANES POSTPROC EVAL Normal [facility] ANES PRE-OPon 06-08-2021 ANES PRE-OP Normal [facility] BRIEF OP NOTon 06-08-2021 BRIEF OP NOT Normal [facility] Bacteria Spec Anaerobe Culto n 06-08-2021 Bacteria identified Anaer cx Nom (Unsp spec) ORGANISM ID: 1 Rare Staphylococcus saccharolyticus Identification performed by [facility] [employer] See scanned document for susceptibility report Normal [facility] Comment on above: Performed By: #### 6 462-6, 635-3 ####[facility]ORATORYCLIA [id number] [address] [place] Bacteria Wnd Culton 06-08-19 22 Bacteria identified Cx Nom (Wound) CULTURE, INTRAOPERATIVE HARDWARE: No growth 5 days GRAM STAIN: Not performed on specimen type Normal [facility] Comment on above: Performed By: #### 6 462-6, 635-3 ####[facility]ORATORYCLIA [id number] [address] OF [facility] Basic metabolic 2000 panelon 06-08-2021 Anion gap [Moles/Vol] 9 mmol/L Normal 9-18 [facility] Comment on above: Order Comment: Speci men Type: BLOOD SPECIMEN Performed By: #### 2 4321-2, 2776-05, ####[facility]ORATORYCLIA [id number] [address] [place] Calcium [Mass/Vol] 8.7 mg/dL Normal 8.5-10.2 [facility] Comment on above: Order Comment: Speci men Type: BLOOD SPECIMEN Performed By: #### 2 4321-2, 2776-05, ####[facility]ORATORYCLIA [id number] [place], [place] [address] [place] [address] [place] Chloride [Moles/Vol] 113 mmol/L High 97-105 [facility] Comment on above: Order Comment: Speci men Type: BLOOD SPECIMEN Performed By: #### 2 4321-2, 2776-, ####[facility]ORATORYCLIA [id number] [place] [address] [place] CO2 [Moles/Vol] 26 mmol/L Normal 22-30 [facility] Comment on above: Order Comment: Speci men Type: BLOOD SPECIMEN Performed By: #### 2 4321-2, 2776-, ####[facility]ORATORYCLIA [id number] [place] [address] [place] Creatinine [Mass/Vol] 0.68 mg/dL Low 0.73-1.22 [facility] Comment on above: Order Comment: Speci men Type: BLOOD SPECIMEN Performed By: #### 2 4321-2, 2777-, ####[facility] HE[facility] SERVICESCLIA [id number] [place] [address] [place] GFR/1.73 sq M.predicted MDRD (S/P/Bld) [Vol rate/Area] mL/min/{1.73_m2} Normal [facility] Comment on above: Order Comment: [...] GFR. Performed By: #### 2 4321-2, 2776-05, ####[facility] [id number] [place] [address] [place] Glucose [Mass/Vol] 146 mg/dL High 74-99 [facility] Comment on above: Order Comment: Speci men Type: BLOOD SPECIMEN Result Comment: The [place] [employer] (ADA) provides guidance for cutoff [...] Standards of Medical Care in Diabetes 2016, [place] [employer]. Diabetes Care. 2016.39(Suppl 1). Performed By: #### 2 4321-2, 7-, ####[facility]ORATORYCLIA [id number] [address] OF [facility] Potassium [Moles/Vol] 3.6 mmol/L Low 3.7-5.1 [facility] Comment on above: Order Comment: Speci men Type: BLOOD SPECIMEN Performed By: #### 2 4321-2, 2776-05, ####[facility]ORATORYCLIA [id number] [address] Sodium [Moles/Vol] 148 mmol/L High 136-144 [facility] Comment on above: Order Comment: Speci men Type: BLOOD SPECIMEN Performed By: #### 2 4321-2, 2776-05, ####[facility]ORATORYCLIA [id number] [address] Urea nitrogen [Mass/Vol] 36 mg/dL High 9-24 [facility] Comment on above: Order Comment: Speci men Type: BLOOD SPECIMEN Performed By: #### 2 4321-2, 2776-05, ####[facility]ORYCLIA [id number] [address] CASE MANAGEMon 06-08-2021 CASE MANAGEM Normal [facility] CBC panel Auto (Bld)on 06-08 Erythrocyte distribution width (RBC) [Ratio] 16.0 % High 11.5-15.0 [facility] Comment on above: Order Comment: Speci men Type: BLOOD SPECIMEN Performed By: #### 5 8410-2 ####[facility]ORYCLIA [id number] [address] Hematocrit (Bld) [Volume fraction] 38.4 % Low 39.0-51.0 [facility] Comment on above: Order Comment: Speci men Type: BLOOD SPECIMEN Performed By: #### 5 8410-2 ####[facility]ATORYCLIA [id number] [address] Hemoglobin (Bld) [Mass/Vol] 12.1 g/dL Low 13.0-17.0 [facility] Comment on above: Order Comment: Speci men Type: BLOOD SPECIMEN Performed By: #### 5 8410-2 ####[facility]ATORYCLIA [id number] [address] MCH (RBC) [Entitic mass] 28.3 pg Normal 26.0-34.0 [facility] Comment on above: Order Comment: Speci men Type: BLOOD SPECIMEN Performed By: #### 5 8410-2 ####[facility]ATORYCLIA [id number] [address] MCHC (RBC) [Mass/Vol] 31.5 g/dL Normal 30.5-36.0 [facility] Comment on above: Order Comment: Speci men Type: BLOOD SPECIMEN Performed By: #### 5 8410-2 ####[facility]ATORYCLIA [id number] [address] MCV (RBC) [Entitic vol] 89.9 fL Normal 80.0-100.0 [facility] Comment on above: Order Comment: Speci men Type: BLOOD SPECIMEN Performed By: #### 5 8410-2 ####[facility]ATORYCLIA [id number] [address] Nucleated RBC (Bld) [#/Vol] 10*3/uL Normal <0.01 [facility] Comment on above: Order Comment: Speci men Type: BLOOD SPECIMEN Performed By: #### 5 8410-2 ####[facility]ORYCLIA [id number] [address] Platelet mean volume (Bld) [Entitic vol] 10.3 fL Normal 9.0-12.7 [facility] Comment on above: Order Comment: Speci men Type: BLOOD SPECIMEN Performed By: #### 5 8410-2 ####[facility]ATORYCLIA [id number] [address] Platelets (Bld) [#/Vol] 236 10*3/uL Normal 150-400 [facility] Comment on above: Order Comment: Speci men Type: BLOOD SPECIMEN Performed By: #### 5 8410-2 ####[facility]ORYCLIA [id number] [address] RBC (Bld) [#/Vol] 4.27 10*6/uL Normal 4.20-6.00 [facility] Comment on above: Order Comment: Speci men Type: BLOOD SPECIMEN Performed By: #### 5 8410-2 ####[facility]ORYCLIA [id number] [address] WBC (Bld) [#/Vol] 11.06 10*3/uL High 3.70-11.00 [facility] Comment on above: Order Comment: Speci men Type: BLOOD SPECIMEN Performed By: #### 5 8410-2 ####[facility]ORYCLIA [id number] [address] CONSULT PROGon 06-08-2021 CONSULT PROG Normal [facility] CT BRAIN WO IVCONon 06-08-[address] BRAIN WO IVCON Normal [facility] Magnesium SerPl-mCncon 06-08 Magnesium [Mass/Vol] 2.8 mg/dL High 1.7-2.3 [facility] Comment on above: Order Comment: Speci men Type: BLOOD SPECIMEN Performed By: #### 2 4321-2, 2777-1, 11427-9 ####[facility]ATORYCLIA [id number] [address] Microorganism Spec Culton Microorganism identified Cx Nom (Unsp spec) CULTURE, FUNGAL: No Fungus isolated after 28 days FUNGAL SMEAR: No fungus seen Normal [facility] Comment on above: Performed By: #### 1 1475-1 ####[facility]ATORYCLIA [id number] [address] OF [facility] NURSING PROGon 06-08-2021 NURSING PROG Normal [facility] OPERATIVE NOon 06-08-2021 OPERATIVE NO Normal [facility] OPERATIVE NO Normal [facility] PT panel Coag (PPP)on 2021 INR Coag (PPP) [Relative time] 1.1 {INR} Normal 0.9-1.3 [facility] Comment on above: Order Comment: Speci men Type: BLOOD SPECIMEN Result Comment: Yris min K Antagonist (VKA) Therapeutic Range: INR 2 to 3 (Target INR of 2.5)Note: For patients treated with VKA drugs, such as warfarin, the [place] [employer] 2012 Guideline recommends [...] al. Chest 2012, 141:7S-47SNishimpatricia RA, et al. [facility] 2017, 70: 252-289 Performed By: #### 3 4528-0, 07964-1 ####[facility]ORATORYCLIA [id number] [place] [address] [place] PT Coag (PPP) [Time] 11.9 s Normal 9.7-13.0 [facility] Comment on above: Order Comment: Speci men Type: BLOOD SPECIMEN Performed By: #### 3 4528-0, 38814-1 ####[facility]ORATORYCLIA [id number] [place] [address] [place] Phosphate SerPl-mCncon 06-08 Phosphate [Mass/Vol] 2.3 mg/dL Low 2.7-4.8 [facility] Comment on above: Order Comment: Speci men Type: BLOOD SPECIMEN Performed By: #### 2 4321-2, 2777-1, 22527-8 ####[facility]ATORYCLIA [id number] [address] aPTT PPPon 06-08-2021 aPTT Coag (PPP) [Time] 24.2 s Normal 23.0-32.4 [facility] Comment on above: Order Comment: Speci men Type: BLOOD SPECIMEN Performed By: #### 3 4528-0, 32337-0 ####[facility]ATORYCLIA [id number] [address] ALLIED HEALTHon 06-07-2021 ALLIED HEALTH Normal [facility] ALLIED HEALTH Normal [facility] ALLIED HEALTH Normal [facility] Bacteria CSF Culton 06-07-19 22 Bacteria identified Cx Nom (CSF) CULTURE, CSF: No growth 14 days GRAM STAIN: No organisms seen Rare Mononuclear cells Rare Polymorphonuclear leukocytes Gram stain performed on cytospun specimen. Normal [facility] Comment on above: Performed By: #### 6 06-4 ####[facility]ATORYCLIA [id number] [address] [place] Basic metabolic 2000 panelon 06-07-2021 Anion gap [Moles/Vol] 9 mmol/L Normal 9-18 [facility] Comment on above: Order Comment: Speci men Type: BLOOD SPECIMEN Performed By: #### 1 9123-9, 2777-1, 14866-0 ####[facility]ORYCLIA [id number] [address] STATES OF [facility] Calcium [Mass/Vol] 8.8 mg/dL Normal 8.5-10.2 [facility] Comment on above: Order Comment: Speci men Type: BLOOD SPECIMEN Performed By: #### 1 9123-9, 2777-1, 30106-2 ####[facility]ATORYCLIA [id number] [address] STATES OF [facility] Chloride [Moles/Vol] 111 mmol/L High 97-105 [facility] Comment on above: Order Comment: Speci men Type: BLOOD SPECIMEN Performed By: #### 1 9123-9, 7, 17156-2 ####[facility]ATORYCLIA [id number] [address] CO2 [Moles/Vol] 27 mmol/L Normal 22-30 [facility] Comment on above: Order Comment: Speci men Type: BLOOD SPECIMEN Performed By: #### 1 9123-9, 2776-05, ####[facility]ATORYCLIA [id number] [address] Creatinine [Mass/Vol] 0.66 mg/dL Low 0.73-1.22 [facility] Comment on above: Order Comment: Speci men Type: BLOOD SPECIMEN Performed By: #### 1 9123-9, 27711-04, ####[facility]ATORYCLIA [id number] [address] [place] GFR/1.73 sq M.predicted MDRD (S/P/Bld) [Vol rate/Area] mL/min/{1.73_m2} Normal [facility] Comment on above: Order Comment: [...] GFR. Performed By: #### 1 9123-9, 2777-, 34522-5 ####[facility]ORATORYCLIA [id number] [place] [address] [place] Glucose [Mass/Vol] 123 mg/dL High 74-99 [facility] Comment on above: Order Comment: Speci men Type: BLOOD SPECIMEN Result Comment: The [place] [employer] (ADA) provides guidance for cutoff [...] Standards of Medical Care in Diabetes 2016, [place] [employer]. Diabetes Care. 2016.39(Suppl 1). Performed By: #### 1 9123-9, 2777-, 50778-5 ####[facility]ATORYCLIA [id number] [address] [place] Potassium [Moles/Vol] 3.6 mmol/L Low 3.7-5.1 [facility] Comment on above: Order Comment: Speci men Type: BLOOD SPECIMEN Performed By: #### 1 9123-9, 27711-04, 26911-5 ####[facility]ATORYCLIA [id number] [address] [place] Sodium [Moles/Vol] 147 mmol/L High 136-144 [facility] Comment on above: Order Comment: Speci men Type: BLOOD SPECIMEN Performed By: #### 1 9123-9, 2777-, 42047-4 ####[facility]ORYCLIA [id number] [address] [place] Urea nitrogen [Mass/Vol] 30 mg/dL High 9-24 [facility] Comment on above: Order Comment: Speci men Type: BLOOD SPECIMEN Performed By: #### 1 9123-9, 2777-, 60764-4 ####[facility]ATORYCLIA [id number] [address] CBC W Auto Differential pane l (Bld)on 06-07-2021 Basophils (Bld) [#/Vol] 10*3/uL Normal <0.11 [facility] Comment on above: Order Comment: Speci men Type: BLOOD SPECIMEN Performed By: #### 5 7021-8 ####[facility]ATORYCLIA [id number] [address] Basophils/100 WBC (Bld) 0.2 % Normal [facility] Comment on above: Order Comment: Speci men Type: BLOOD SPECIMEN Performed By: #### 5 7021-8 ####[facility]ATORYCLIA [id number] [address] Differential cell count method Nom (Bld) Auto Normal [facility] Comment on above: Order Comment: Speci men Type: BLOOD SPECIMEN Performed By: #### 5 7021-8 ####[facility]ORYCLIA [id number] [address] Eosinophils (Bld) [#/Vol] 0.06 10*3/uL Normal <0.46 [facility] Comment on above: Order Comment: Speci men Type: BLOOD SPECIMEN Performed By: #### 5 7021-8 ####[facility]ATORYCLIA [id number] [address] Eosinophils/100 WBC (Bld) 0.6 % Normal [facility] Comment on above: Order Comment: Speci men Type: BLOOD SPECIMEN Performed By: #### 5 7021-8 ####[facility]ATORYCLIA [id number] [address] Erythrocyte distribution width (RBC) [Ratio] 15.8 % High 11.5-15.0 [facility] Comment on above: Order Comment: Speci men Type: BLOOD SPECIMEN Performed By: #### 5 7021-8 ####[facility]ATORYCLIA [id number] [address] Hematocrit (Bld) [Volume fraction] 40.4 % Normal 39.0-51.0 [facility] Comment on above: Order Comment: Speci men Type: BLOOD SPECIMEN Performed By: #### 5 7021-8 ####[facility]ORATORYCLIA [id number] [address] Hemoglobin (Bld) [Mass/Vol] 12.4 g/dL Low 13.0-17.0 [facility] Comment on above: Order Comment: Speci men Type: BLOOD SPECIMEN Performed By: #### 5 7021-8 ####[facility]ORATORYCLIA [id number] [address] IMMATURE GRAN % 0.7 % Normal [facility] Comment on above: Order Comment: Speci men Type: BLOOD SPECIMEN Performed By: #### 5 7021-8 ####[facility]ORYCLIA [id number] [address] IMMATURE GRAN ABS 0.07 k/uL Normal <0.10 [facility] Comment on above: Order Comment: Speci men Type: BLOOD SPECIMEN Performed By: #### 5 7021-8 ####[facility]ATORYCLIA [id number] [address] Lymphocytes (Bld) [#/Vol] 1.43 10*3/uL Normal 1.00-4.00 [facility] Comment on above: Order Comment: Speci men Type: BLOOD SPECIMEN Performed By: #### 5 7021-8 ####[facility]ATORYCLIA [id number] [address] Lymphocytes/100 WBC (Bld) 14.1 % Normal [facility] Comment on above: Order Comment: Speci men Type: BLOOD SPECIMEN Performed By: #### 5 7021-8 ####[facility]ATORYCLIA [id number] [address] MCH (RBC) [Entitic mass] 27.6 pg Normal 26.0-34.0 [facility] Comment on above: Order Comment: Speci men Type: BLOOD SPECIMEN Performed By: #### 5 7021-8 ####[facility]ORYCLIA [id number] [address] MCHC (RBC) [Mass/Vol] 30.7 g/dL Normal 30.5-36.0 [facility] Comment on above: Order Comment: Speci men Type: BLOOD SPECIMEN Performed By: #### 5 7021-8 ####[facility]ATORYCLIA [id number] [address] MCV (RBC) [Entitic vol] 89.8 fL Normal 80.0-100.0 [facility] Comment on above: Order Comment: Speci men Type: BLOOD SPECIMEN Performed By: #### 5 7021-8 ####[facility]ORYCLIA [id number] [address] Monocytes (Bld) [#/Vol] 0.82 10*3/uL Normal <0.87 [facility] Comment on above: Order Comment: Speci men Type: BLOOD SPECIMEN Performed By: #### 5 7021-8 ####[facility]ATORYCLIA [id number] [address] Monocytes/100 WBC (Bld) 8.1 % Normal [facility] Comment on above: Order Comment: Speci men Type: BLOOD SPECIMEN Performed By: #### 5 7021-8 ####[facility]ATORYCLIA [id number] [address] Neutrophils (Bld) [#/Vol] 7.74 10*3/uL High 1.45-7.50 [facility] Comment on above: Order Comment: Speci men Type: BLOOD SPECIMEN Performed By: #### 5 7021-8 ####[facility]ATORYCLIA [id number] [address] Neutrophils/100 WBC (Bld) 76.3 % Normal [facility] Comment on above: Order Comment: Speci men Type: BLOOD SPECIMEN Performed By: #### 5 7021-8 ####[facility]ATORYCLIA [id number] [address] Nucleated RBC (Bld) [#/Vol] 10*3/uL Normal <0.01 [facility] Comment on above: Order Comment: Speci men Type: BLOOD SPECIMEN Performed By: #### 5 7021-8 ####[facility]ORYCLIA [id number] [address] Nucleated RBC/100 WBC (Bld) [Ratio] 0.0 /100 WBC Normal 0.0 [facility] Comment on above: Order Comment: Speci men Type: BLOOD SPECIMEN Performed By: #### 5 7021-8 ####[facility]ORYCLIA [id number] [address] Platelet mean volume (Bld) [Entitic vol] 10.4 fL Normal 9.0-12.7 [facility] Comment on above: Order Comment: Speci men Type: BLOOD SPECIMEN Performed By: #### 5 7021-8 ####[facility]ATORYCLIA [id number] [address] OF [facility] Platelets (Bld) [#/Vol] 236 10*3/uL Normal 150-400 [facility] Comment on above: Order Comment: Speci men Type: BLOOD SPECIMEN Performed By: #### 5 7021-8 ####[facility]ORYCLIA [id number] [address] OF [facility] RBC (Bld) [#/Vol] 4.50 10*6/uL Normal 4.20-6.00 [facility] Comment on above: Order Comment: Speci men Type: BLOOD SPECIMEN Performed By: #### 5 7021-8 ####[facility]ATORYCLIA [id number] [address] WBC (Bld) [#/Vol] 10.14 10*3/uL Normal 3.70-11.00 [facility] Comment on above: Order Comment: Speci men Type: BLOOD SPECIMEN Performed By: #### 5 7021-8 ####[facility]ATORYCLIA [id number] [address] CBC panel Auto (Bld)on 06-07 Erythrocyte distribution width (RBC) [Ratio] 15.8 % High 11.5-15.0 [facility] Comment on above: Order Comment: Speci men Type: BLOOD SPECIMEN Performed By: #### 5 8410-2 ####[facility]ORYCLIA [id number] [address] Hematocrit (Bld) [Volume fraction] 40.0 % Normal 39.0-51.0 [facility] Comment on above: Order Comment: Speci men Type: BLOOD SPECIMEN Performed By: #### 5 8410-2 ####[facility]ORYCLIA [id number] [address] Hemoglobin (Bld) [Mass/Vol] 12.3 g/dL Low 13.0-17.0 [facility] Comment on above: Order Comment: Speci men Type: BLOOD SPECIMEN Performed By: #### 5 8410-2 ####[facility]ORYCLIA [id number] [address] MCH (RBC) [Entitic mass] 27.3 pg Normal 26.0-34.0 [facility] Comment on above: Order Comment: Speci men Type: BLOOD SPECIMEN Performed By: #### 5 8410-2 ####[facility]ORYCLIA [id number] [address] MCHC (RBC) [Mass/Vol] 30.8 g/dL Normal 30.5-36.0 [facility] Comment on above: Order Comment: Speci men Type: BLOOD SPECIMEN Performed By: #### 5 8410-2 ####[facility]ORYCLIA [id number] [address] MCV (RBC) [Entitic vol] 88.7 fL Normal 80.0-100.0 [facility] Comment on above: Order Comment: Speci men Type: BLOOD SPECIMEN Performed By: #### 5 8410-2 ####[facility]ORYCLIA [id number] [address] Nucleated RBC (Bld) [#/Vol] 10*3/uL Normal <0.01 [facility] Comment on above: Order Comment: Speci men Type: BLOOD SPECIMEN Performed By: #### 5 8410-2 ####[facility]ORYCLIA [id number] [address] Platelet mean volume (Bld) [Entitic vol] 10.0 fL Normal 9.0-12.7 [facility] Comment on above: Order Comment: Speci men Type: BLOOD SPECIMEN Performed By: #### 5 8410-2 ####[facility]ORYCLIA [id number] [address] Platelets (Bld) [#/Vol] 234 10*3/uL Normal 150-400 [facility] Comment on above: Order Comment: Speci men Type: BLOOD SPECIMEN Performed By: #### 5 8410-2 ####[facility]ATORYCLIA [id number] [address] OF [facility] RBC (Bld) [#/Vol] 4.51 10*6/uL Normal 4.20-6.00 [facility] Comment on above: Order Comment: Speci men Type: BLOOD SPECIMEN Performed By: #### 5 8410-2 ####[facility]ORYCLIA [id number] [address] OF [facility] WBC (Bld) [#/Vol] 11.47 10*3/uL High 3.70-11.00 [facility] Comment on above: Order Comment: Speci men Type: BLOOD SPECIMEN Performed By: #### 5 8410-2 ####[facility]ATORYCLIA [id number] [address] OF [facility] CONSULT PROGon 06-07-2021 CONSULT PROG Normal [facility] CONSULT PROG Normal [facility] CSF MANUAL DIFFon 06-07-2021 DIF TTL, CSF 92 cells counted Normal [facility] Comment on above: Order Comment: Speci men Type: CEREBROSPINAL FLUID Performed By: #### 3 4563-7, [id number], [id number] ####[facility]ATORYCLIA [id number] [place], [place] [address] [place] [address] EOSIN%, CSF 1 % Normal [facility] Comment on above: Order Comment: Speci men Type: CEREBROSPINAL FLUID Performed By: #### 3 4563-7, [id number], [id number] ####[facility]ATORYCLIA [id number] [address] LYMPH%, CSF 21 % Low 50-90 [facility] Comment on above: Order Comment: Speci men Type: CEREBROSPINAL FLUID Performed By: #### 3 4563-7, [id number], [id number] ####[facility]ATORYCLIA [id number] [address] [place] MACRO%, CSF 27 % High <1 [facility] Comment on above: Order Comment: Speci men Type: CEREBROSPINAL FLUID Result Comment: Tati ected result: Previously reported as 22 % on 06/07/2021 at 1:49 PM EST. Performed By: #### 3 4563-7, [id number], [id number] ####[facility]ATORYCLIA [id number] [address] [place] MONO%, CSF 36 % Normal 10-50 [facility] Comment on above: Order Comment: Speci men Type: CEREBROSPINAL FLUID Performed By: #### 3 4563-7, [id number], [id number] ####[facility]ORATORYCLIA [id number] [address] [place] NEUT%, CSF 11 % High 0-3 [facility] Comment on above: Order Comment: Speci men Type: CEREBROSPINAL FLUID Performed By: #### 3 4563-7, [id number], [id number] ####[facility]ATORYCLIA [id number] [address] OTHER CL%, CSF 4 % Normal [facility] Comment on above: Order Comment: Speci men Type: CEREBROSPINAL FLUID Result Comment: Path review to follow.Corrected result: Previously reported as 10 % on 06/07/2021 at 1:49 PM EST. Performed By: #### 3 4563-7, [id number], [id number] ####[facility]ATORYCLIA [id number] [address] CSF PATHOLOGIST INTERP (LAB REFLEX ORDER-NO BILL)on 06-07-2021 CSF STAFF REVIEW Negative for maligna nt cells. Rare immature myeloid or ventricular lining cells. Normal [facility] Comment on above: Order Comment: Speci men Type: CEREBROSPINAL FLUID Performed By: #### 3 4563-7, [id number], [id number] ####[facility]ORATORYCLIA [id number] [address] Pathologist name Reviewed by Eloise rebolledo MD [facility] Comment on above: Order Comment: Speci men Type: CEREBROSPINAL FLUID Performed By: #### 3 4563-7, [id number], [id number] ####[facility]ATORYCLIA [id number] [address] BRAIN WO IVCONon 06-07-19 CT BRAIN WO IVCON Normal [facility] CT BRAIN WO IVCON Normal [facility] Cell count panel (CSF)on Clarity (CSF) Clear Normal Clear [facility] Comment on above: Order Comment: Speci men Type: CEREBROSPINAL FLUID Performed By: #### 3 4563-7, [id number], [id number] ####[facility]ORATORYCLIA [id number] [address] Clarity (Unsp spec) Not Indicated Normal Clear [facility] Comment on above: Order Comment: Speci men Type: CEREBROSPINAL FLUID Performed By: #### 3 4563-7, [id number], [id number] ####[facility]ATORYCLIA [id number] [address] Color (CSF) Colorless Normal Colorless [facility] Comment on above: Order Comment: Speci men Type: CEREBROSPINAL FLUID Performed By: #### 3 4563-7, [id number], [id number] ####[facility]ATORYCLIA [id number] [address] Color (Spun CSF) Not Indicated Normal Colorless [facility] Comment on above: Order Comment: Speci men Type: CEREBROSPINAL FLUID Performed By: #### 3 4563-7, [id number], [id number] ####[facility]ATORYCLIA [id number] [address] CSF TUBE NUMBER [employer] Normal [facility] Comment on above: Order Comment: Speci men Type: CEREBROSPINAL FLUID Performed By: #### 3 4563-7, JGN3065, [id number] ####[facility]ORATORYCLIA [id number] [address] RBC Manual cnt (CSF) [#/Vol] 42 cells/uL High 0-5 [facility] Comment on above: Order Comment: Speci men Type: CEREBROSPINAL FLUID Performed By: #### 3 4563-7, [id number], [id number] ####[facility]ATORYCLIA [id number] [address] WBC Manual cnt (CSF) [#/Vol] 1 cells/uL Normal 0-5 [facility] Comment on above: Order Comment: Speci men Type: CEREBROSPINAL FLUID Performed By: #### 3 4563-7, [id number], [id number] ####[facility]ATORYCLIA [id number] [address] OF [facility] Glucose CSF-ncon 2 Glucose (CSF) [Mass/Vol] 92 mg/dL High 40-70 [facility] Comment on above: Order Comment: Speci men Type: CEREBROSPINAL FLUID Result Comment: Lumb ar CSF glucose values of healthy patients are approximately 60% of the plasma values and must always be compared with a concurrently measured plasma value for adequate clinical interpretation.References: 1. Glucose HK (GLUC3) [package insert V 12.0 [place]]. [employer], [place], [place]. September 2015. 2. Michelle Moore, Loki, H. (2015). Chapter 7: Glucose and Lactate. Marianela Alcocer al.(eds.), Cerebrospinal Fluid in Clinical Neurology. Stewart: [employer]. Performed By: #### 2 880-3, 2342-4 ####[facility] LABORATORYCLIA [id number] [address] OF [facility] Lactate (Bld) [Moles/Vol]on 06-07-2021 Lactate [Moles/Vol] 0.9 mmol/L Normal 0.5-2.2 [facility] Comment on above: Order Comment: Speci men Type: BLOOD SPECIMEN Performed By: #### 3 2693-4 ####[facility]ATORYCLIA [id number] [address] OF [facility] Lipase SerPl-cCncon 06-07-19 22 Lipase [Catalytic activity/Vol] 35 U/L Normal 16-61 [facility] Comment on above: Order Comment: Speci men Type: BLOOD SPECIMEN Performed By: #### 3 040-3, PROCAL ####[facility] LABORATORYCLIA [id number] [address] Magnesium SerPl-mCncon 06-07 Magnesium [Mass/Vol] 2.7 mg/dL High 1.7-2.3 [facility] Comment on above: Order Comment: Speci men Type: BLOOD SPECIMEN Performed By: #### 1 9123-9, 2777-1, 16794-8 ####[facility] LABORATORYCLIA [id number] [address] PROCALCITONIN (LAB)on 2021 Procalcitonin [Mass/Vol] 0.13 ng/mL High <0.09 [facility] Comment on above: Order Comment: Speci men Type: BLOOD SPECIMEN Result Comment: For a guided interpretation of test results, please visit the Change in Procalcitonin Calculator, [email or web address]. Performed By: #### 3 040-3, PROCAL ####[facility] LABORATORYCLIA [id number] [address] OF [facility] Phosphate SerPl-mCncon 06-07 Phosphate [Mass/Vol] 1.9 mg/dL Low 2.7-4.8 [facility] Comment on above: Order Comment: Speci men Type: BLOOD SPECIMEN Performed By: #### 1 9123-9, 2777-1, 60832-1 ####[facility] LABORATORYCLIA [id number] [address] Prot CSF-mCncon 06-07-2021 Protein (CSF) [Mass/Vol] 33 mg/dL Normal 15-45 [facility] Comment on above: Order Comment: Speci men Type: CEREBROSPINAL FLUID Performed By: #### 2 880-3, 2342-4 ####[facility] LABORATORYCLIA [id number] [address] SARS-CoV-2 RNA Resp Ql MEGAN+p robeon 06-07-2021 SARS-CoV-2 (COVID-19) RNA MEGAN+probe Ql (Resp) COVID 19 RESULT: SARS-CoV-2 (Agent of COVID-19) Not Detected by PCR. This test has been authorized by FDA under an Emergency Use Authorization (EUA). Normal [facility] Comment on above: Performed By: #### 9 4500-6 ####[facility] LABORATORYCLIA [id number] [address] TYPE AND SCREENon 06-07-2021 ABO O Normal [facility] Comment on above: Order Comment: Speci men Type: BLOOD SPECIMEN Performed By: #### T SCR ####[facility] BLOOD BANKCLIA [id number] [address] HISTORICAL AB SCR STATUS Negative Normal [facility] Comment on above: Order Comment: Speci men Type: BLOOD SPECIMEN Performed By: #### T SCR ####[facility] BLOOD BANKCLIA [id number] [place] [address] [facility] Rh Nom (Bld) Positive Normal [facility] Comment on above: Order Comment: Speci men Type: BLOOD SPECIMEN Performed By: #### T SCR ####[facility] BLOOD BANKCLIA [id number] [place] [id number] [facility] TYPE AND SCREEN EXPIRATION 06/10/2021 23:59 Normal [facility] Comment on above: Order Comment: Speci men Type: BLOOD SPECIMEN Performed By: #### T SCR ####[facility] BLOOD BANKCLIA [id number] [address] Vancomycin random [Mass/Vol] on 06-07-2021 Vancomycin [Mass/Vol] 16.5 ug/mL Normal 10.0-20.0 [facility] Comment on above: Order Comment: Speci men Type: BLOOD SPECIMEN Result Comment: Refe rence ranges and high/low indicator flags are provided as general guidelines only. The treating physician must determine appropriate target levels/dosing based on the specific clinical situation. Performed By: #### 4 091-5 ####[facility] LABORATORYCLIA [id number] [address] XR CHEST 1V FRONTAL PORTon 0 06-07-2021 XR CHEST 1V FRONTAL PORT Normal [facility] Basic metabolic 2000 panelon 06-06-2021 Anion gap [Moles/Vol] 11 mmol/L Normal 9-18 [facility] Comment on above: Order Comment: Speci men Type: BLOOD SPECIMEN Performed By: #### 2 4321-2, , 2776-05 ####[facility] LABORATORYCLIA [id number] [address] STATES [facility] Calcium [Mass/Vol] 8.6 mg/dL Normal 8.5-10.2 [facility] Comment on above: Order Comment: Speci men Type: BLOOD SPECIMEN Performed By: #### 2 4321-2, , 2776-05 ####[facility] LABORATORYCLIA [id number] [place], [place] [id number] [place] [address] [place] Chloride [Moles/Vol] 108 mmol/L High 97-105 [facility] Comment on above: Order Comment: Speci men Type: BLOOD SPECIMEN Performed By: #### 2 4321-2, , 2776-05 ####[facility] LABORATORYCLIA [id number] [address] STATES [facility] CO2 [Moles/Vol] 25 mmol/L Normal 22-30 [facility] Comment on above: Order Comment: Speci men Type: BLOOD SPECIMEN Performed By: #### 2 4321-2, , 2776-05 ####[facility] LABORATORYCLIA [id number] [address] Creatinine [Mass/Vol] 0.76 mg/dL Normal 0.73-1.22 [facility] Comment on above: Order Comment: Speci men Type: BLOOD SPECIMEN Performed By: #### 2 1-2, , 2776-05 ####[facility] LABORATORYCLIA [id number] [address] [place] GFR/1.73 sq M.predicted MDRD (S/P/Bld) [Vol rate/Area] mL/min/{1.73_m2} Normal [facility] Comment on above: Order Comment: [...] Performed By: #### 2 4321-2, , 2776-05 ####[facility] LABORATORYCLIA [id number] [place] [address] [place] Glucose [Mass/Vol] 116 mg/dL High 74-99 [facility] Comment on above: Order Comment: Speci men Type: BLOOD SPECIMEN Result Comment: The [place] [employer] (ADA) provides guidance for cutoff [...] Standards of Medical Care in Diabetes 2016, [place] [employer]. Diabetes Care. 2016.39(Suppl 1). Performed By: #### 2 4321-2, , 2776-05 ####[facility] LABORATORYCLIA [id number] [address] [place] Potassium [Moles/Vol] 3.5 mmol/L Low 3.7-5.1 [facility] Comment on above: Order Comment: Speci men Type: BLOOD SPECIMEN Performed By: #### 2 1-2, , 2776-05 ####[facility] LABORATORYCLIA [id number] [address] [place] Sodium [Moles/Vol] 144 mmol/L Normal 136-144 [facility] Comment on above: Order Comment: Speci men Type: BLOOD SPECIMEN Performed By: #### 2 1-2, , 2776-05 ####[facility] LABORATORYCLIA [id number] [place] [address] [place] Urea nitrogen [Mass/Vol] 31 mg/dL High 9-24 [facility] Comment on above: Order Comment: Speci men Type: BLOOD SPECIMEN Performed By: #### 2 4321-2, , 2776-05 ####[facility] LABORATORYCLIA [id number] [address] CASE MANAGEMon 06-06-2021 CASE MANAGEM Normal [facility] CBC panel Auto (Bld)on 06-06 Erythrocyte distribution width (RBC) [Ratio] 15.8 % High 11.5-15.0 [facility] Comment on above: Order Comment: Speci men Type: BLOOD SPECIMEN Performed By: #### 5 8410-2 ####[facility] LABORATORYCLIA [id number] [address] Hematocrit (Bld) [Volume fraction] 39.5 % Normal 39.0-51.0 [facility] Comment on above: Order Comment: Speci men Type: BLOOD SPECIMEN Performed By: #### 5 8410-2 ####[facility] LABORATORYCLIA [id number] [address] Hemoglobin (Bld) [Mass/Vol] 12.2 g/dL Low 13.0-17.0 [facility] Comment on above: Order Comment: Speci men Type: BLOOD SPECIMEN Performed By: #### 5 8410-2 ####[facility] LABORATORYCLIA [id number] [address] MCH (RBC) [Entitic mass] 27.8 pg Normal 26.0-34.0 [facility] Comment on above: Order Comment: Speci men Type: BLOOD SPECIMEN Performed By: #### 5 8410-2 ####[facility] LABORATORYCLIA [id number] [address] MCHC (RBC) [Mass/Vol] 30.9 g/dL Normal 30.5-36.0 [facility] Comment on above: Order Comment: Speci men Type: BLOOD SPECIMEN Performed By: #### 5 8410-2 ####[facility] LABORATORYCLIA [id number] [address] MCV (RBC) [Entitic vol] 90.0 fL Normal 80.0-100.0 [facility] Comment on above: Order Comment: Speci men Type: BLOOD SPECIMEN Performed By: #### 5 8410-2 ####[facility] LABORATORYCLIA [id number] [address] Nucleated RBC (Bld) [#/Vol] 10*3/uL Normal <0.01 [facility] Comment on above: Order Comment: Speci men Type: BLOOD SPECIMEN Performed By: #### 5 8410-2 ####[facility] LABORATORYCLIA [id number] [address] Platelet mean volume (Bld) [Entitic vol] 10.4 fL Normal 9.0-12.7 [facility] Comment on above: Order Comment: Speci men Type: BLOOD SPECIMEN Performed By: #### 5 8410-2 ####[facility] LABORATORYCLIA [id number] [address] Platelets (Bld) [#/Vol] 236 10*3/uL Normal 150-400 [facility] Comment on above: Order Comment: Speci men Type: BLOOD SPECIMEN Performed By: #### 5 8410-2 ####[facility] LABORATORYCLIA [id number] [address] RBC (Bld) [#/Vol] 4.39 10*6/uL Normal 4.20-6.00 [facility] Comment on above: Order Comment: Speci men Type: BLOOD SPECIMEN Performed By: #### 5 8410-2 ####[facility] LABORATORYCLIA [id number] [address] WBC (Bld) [#/Vol] 9.74 10*3/uL Normal 3.70-11.00 [facility] Comment on above: Order Comment: Speci men Type: BLOOD SPECIMEN Performed By: #### 5 8410-2 ####[facility] LABORATORYCLIA [id number] [address] CONSULT PROGon 06-06-2021 CONSULT PROG Normal [facility] CONSULT PROG Normal [facility] Magnesium SerPl-mCncon 06-06 Magnesium [Mass/Vol] 2.5 mg/dL High 1.7-2.3 [facility] Comment on above: Order Comment: Speci men Type: BLOOD SPECIMEN Performed By: #### 2 4321-2, 04691-4, 2777-1 ####[facility] LABORATORYCLIA [id number] [place] [address] [place] PT panel Coag (PPP)on 2021 INR Coag (PPP) [Relative time] 1.0 {INR} Normal 0.9-1.3 [facility] Comment on above: Order Comment: Speci men Type: BLOOD SPECIMEN Result Comment: Yris min K Antagonist (VKA) Therapeutic Range: INR 2 to 3 (Target INR of 2.5)Note: For patients treated with VKA drugs, such as warfarin, the [place] [employer] 2012 Guideline recommends [...] al. Chest 2012, 141:7S-47SNishimpatricia RA, et al. [facility] 2017, 70: 252-289 Performed By: #### 3 4528-0, 68035-0 ####[facility] LABORATORYCLIA [id number] [place] [address] [place] PT Coag (PPP) [Time] 11.4 s Normal 9.7-13.0 [facility] Comment on above: Order Comment: Speci men Type: BLOOD SPECIMEN Performed By: #### 3 4528-0, 65416-1 ####[facility] LABORATORYCLIA [id number] [address] Phosphate SerPl-mCncon 06-06 Phosphate [Mass/Vol] 2.3 mg/dL Low 2.7-4.8 [facility] Comment on above: Order Comment: Speci men Type: BLOOD SPECIMEN Performed By: #### 2 4321-2, 50133-9, 2777-1 ####[facility] LABORATORYCLIA [id number] [address] THROMBOGRAPH HEPARINASE PANE Kiel 06-06-2021 Clot angle after addition of heparinase TEG (Bld) [Angle] 70.2 degrees Normal 47.0-74.0 [facility] Comment on above: Order Comment: Speci men Type: BLOOD SPECIMEN Performed By: #### T EGHPP ####[facility] LABORATORYCLIA [id number] [address] Clot Lysis 30 Min post maximum clot amplitude TEG (Bld) [Length fraction] 0.0 % Normal 0.0-8.0 [facility] Comment on above: Order Comment: Speci men Type: BLOOD SPECIMEN Performed By: #### T EGHPP ####[facility] LABORATORYCLIA [id number] [address] Clotting time after addition of heparinase TEG (Bld) 5.7 minutes Normal 4.0-10.0 [facility] Comment on above: Order Comment: Speci men Type: BLOOD SPECIMEN Performed By: #### T EGHPP ####[facility] LABORATORYCLIA [id number] [address] Coagulation index TEG Qn (Bld) 1.2 Normal -4.6-3.2 [facility] Comment on above: Order Comment: Speci men Type: BLOOD SPECIMEN Result Comment: The Coagulation Index, a secondary parameter, is labeled by the trick rodeo rider as for research use only and is used per the trick rodeo rider's instructions. Its performance characteristics were determined by [facility]'s Isrrael Perez [facility] Pathology and Laboratory Medicine [place] in a manner consistent with CLIA requirements. This test has not been cleared by the U.S. Food and Drug Administration. Performed By: #### T EGHPP ####[facility] LABORATORYCLIA [id number] [address] Maximum clot firmness after addition of heparinase TEG (Bld) [Length] 64.0 mm Normal 51.0-75.0 [facility] Comment on above: Order Comment: Speci men Type: BLOOD SPECIMEN Performed By: #### T EGHPP ####[facility] LABORATORYCLIA [id number] [address] Vancomycin random [Mass/Vol] on 06-06-2021 Vancomycin [Mass/Vol] 17.4 ug/mL Normal 10.0-20.0 [facility] Comment on above: Order Comment: Speci men Type: BLOOD SPECIMEN Result Comment: Refe rence ranges and high/low indicator flags are provided as general guidelines only. The treating physician must determine appropriate target levels/dosing based on the specific clinical situation. Performed By: #### 4 091-5 ####[facility] LABORATORYCLIA [id number] [address] Vancomycin [Mass/Vol] 13.5 ug/mL Normal 10.0-20.0 [facility] Comment on above: Order Comment: Speci men Type: BLOOD SPECIMEN Result Comment: Refe rence ranges and high/low indicator flags are provided as general guidelines only. The treating physician must determine appropriate target levels/dosing based on the specific clinical situation. Performed By: #### 4 091-5 ####[facility] LABORATORYCLIA [id number] [address] aPTT PPPon 06-06-2021 aPTT Coag (PPP) [Time] 27.8 s Normal 23.0-32.4 [facility] Comment on above: Order Comment: Speci men Type: BLOOD SPECIMEN Performed By: #### 3 4528-0, 66085-4 ####[facility] LABORATORYCLIA [id number] [address] Basic metabolic 2000 panelon 01-30-2022 Anion gap [Moles/Vol] 11 mmol/L Normal 9-18 [facility] Comment on above: Order Comment: Speci men Type: BLOOD SPECIMEN Performed By: #### 1 9123-9, 94584-3, 2776- ####[facility] LABORATORYCLIA [id number] [address] STATES OF [facility] Calcium [Mass/Vol] 8.6 mg/dL Normal 8.5-10.2 [facility] Comment on above: Order Comment: Speci men Type: BLOOD SPECIMEN Performed By: #### 1 9122-9, 31396-5, 2776- ####[facility] LABORATORYCLIA [id number] [address] STATES OF [facility] Chloride [Moles/Vol] 108 mmol/L High 97-105 [facility] Comment on above: Order Comment: Speci men Type: BLOOD SPECIMEN Performed By: #### 1 9, 42557-9, 2776-05 ####[facility] LABORATORYCLIA [id number] [address] [place] CO2 [Moles/Vol] 25 mmol/L Normal 22-30 [facility] Comment on above: Order Comment: Speci men Type: BLOOD SPECIMEN Performed By: #### 1 9122-9, 48819-3, 2776-05 ####[facility] LABORATORYCLIA [id number] [address] [place] Creatinine [Mass/Vol] 0.77 mg/dL Normal 0.73-1.22 [facility] Comment on above: Order Comment: Speci men Type: BLOOD SPECIMEN Performed By: #### 1 9123-9, 75883-5, 2776- ####[facility] LABORATORYCLIA [id number] [place] [address] [place] GFR/1.73 sq M.predicted MDRD (S/P/Bld) [Vol rate/Area] mL/min/{1.73_m2} Normal [facility] Comment on above: Order Comment: [...] actual GFR. Performed By: #### 1 9123-9, 28700-1, 2776-05 ####[facility] LABORATORYCLIA [id number] [place] [address] [place] Glucose [Mass/Vol] 96 mg/dL Normal 74-99 [facility] Comment on above: Order Comment: Speci men Type: BLOOD SPECIMEN Result Comment: The [place] [employer] (ADA) provides guidance for cutoff [...] Standards of Medical Care in Diabetes 2016, [place] [employer]. Diabetes Care. 2016.39(Suppl 1). Performed By: #### 1 9123-9, 35477-4, 2776-05 ####[facility] LABORATORYCLIA [id number] [place] [id number] [place] Potassium [Moles/Vol] 3.9 mmol/L Normal 3.7-5.1 [facility] Comment on above: Order Comment: Speci men Type: BLOOD SPECIMEN Performed By: #### 1 9123-9, 58231-8, 2776-05 ####[facility] LABORATORYCLIA [id number] [place] [address] [place] Sodium [Moles/Vol] 144 mmol/L Normal 136-144 [facility] Comment on above: Order Comment: Speci men Type: BLOOD SPECIMEN Performed By: #### 1 9123-9, 26781-7, 277-1 ####[facility] LABORATORYCLIA [id number] [address] Urea nitrogen [Mass/Vol] 26 mg/dL High 9-24 [facility] Comment on above: Order Comment: Speci men Type: BLOOD SPECIMEN Performed By: #### 1 9123-9, 38149-9, 2776- ####[facility] LABORATORYCLIA [id number] [address] CBC panel Auto (Bld)on 06-05 Erythrocyte distribution width (RBC) [Ratio] 15.9 % High 11.5-15.0 [facility] Comment on above: Order Comment: Speci men Type: BLOOD SPECIMEN Performed By: #### 5 8410-2 ####[facility] LABORATORYCLIA [id number] [address] Hematocrit (Bld) [Volume fraction] 39.6 % Normal 39.0-51.0 [facility] Comment on above: Order Comment: Speci men Type: BLOOD SPECIMEN Performed By: #### 5 8410-2 ####[facility] LABORATORYCLIA [id number] [address] Hemoglobin (Bld) [Mass/Vol] 12.3 g/dL Low 13.0-17.0 [facility] Comment on above: Order Comment: Speci men Type: BLOOD SPECIMEN Performed By: #### 5 8410-2 ####[facility] LABORATORYCLIA [id number] [address] MCH (RBC) [Entitic mass] 28.1 pg Normal 26.0-34.0 [facility] Comment on above: Order Comment: Speci men Type: BLOOD SPECIMEN Performed By: #### 5 8410-2 ####[facility]ORATORYCLIA [id number] [address] MCHC (RBC) [Mass/Vol] 31.1 g/dL Normal 30.5-36.0 [facility] Comment on above: Order Comment: Speci men Type: BLOOD SPECIMEN Performed By: #### 5 8410-2 ####[facility] LABORATORYCLIA [id number] [address] MCV (RBC) [Entitic vol] 90.4 fL Normal 80.0-100.0 [facility] Comment on above: Order Comment: Speci men Type: BLOOD SPECIMEN Performed By: #### 5 8410-2 ####[facility] LABORATORYCLIA [id number] [address] Nucleated RBC (Bld) [#/Vol] 10*3/uL Normal <0.01 [facility] Comment on above: Order Comment: Speci men Type: BLOOD SPECIMEN Performed By: #### 5 8410-2 ####[facility] LABORATORYCLIA [id number] [address] Platelet mean volume (Bld) [Entitic vol] 10.5 fL Normal 9.0-12.7 [facility] Comment on above: Order Comment: Speci men Type: BLOOD SPECIMEN Performed By: #### 5 8410-2 ####[facility] LABORATORYCLIA [id number] [address] Platelets (Bld) [#/Vol] 224 10*3/uL Normal 150-400 [facility] Comment on above: Order Comment: Speci men Type: BLOOD SPECIMEN Performed By: #### 5 8410-2 ####[facility] LABORATORYCLIA [id number] [address] RBC (Bld) [#/Vol] 4.38 10*6/uL Normal 4.20-6.00 [facility] Comment on above: Order Comment: Speci men Type: BLOOD SPECIMEN Performed By: #### 5 8410-2 ####[facility] LABORATORYCLIA [id number] [address] WBC (Bld) [#/Vol] 9.66 10*3/uL Normal 3.70-11.00 [facility] Comment on above: Order Comment: Speci men Type: BLOOD SPECIMEN Performed By: #### 5 8410-2 ####[facility] LABORATORYCLIA [id number] [address] CONSULT PROGon 06-05-2021 CONSULT PROG Normal [facility] Gas and Carbon monoxide pane l (BldV)on 06-05-2021 Base excess Calc (BldV) [Moles/Vol] 1.8 mmol/L Normal 0-2 [facility] Comment on above: Order Comment: Speci men Type: VENOUS BLOOD SPECIMEN Performed By: #### 2 4344-4 ####[facility] LABORATORYCLIA [id number] [address] Body temperature 100.4 [degF] Normal [facility] Comment on above: Order Comment: Speci men Type: VENOUS BLOOD SPECIMEN Performed By: #### 2 4344-4 ####[facility] LABORATORYCLIA [id number] [address] CALCIUM IONIZED, PH CORRECTED 1.21 mmol/L Normal 1.08-1.30 [facility] Comment on above: Order Comment: Speci men Type: VENOUS BLOOD SPECIMEN Performed By: #### 2 4344-4 ####[facility] LABORATORYCLIA [id number] [address] Calcium.ionized (BldV) [Mass/Vol] 1.19 mmol/L Normal 1.08-1.30 [facility] Comment on above: Order Comment: Speci men Type: VENOUS BLOOD SPECIMEN Performed By: #### 2 4344-4 ####[facility] LABORATORYCLIA [id number] [address] [place] Carboxyhemoglobin (BldV) [Mass fraction] 1.0 % Normal 0.0-2.0 [facility] Comment on above: Order Comment: Speci men Type: VENOUS BLOOD SPECIMEN Result Comment: Carb oxyhemoglobin Reference Range for Smokers: 2.0-8.0% Performed By: #### 2 4344-4 ####[facility]ORATORYCLIA [id number] [address] CO2 (BldV) [Partial pressure] 41 mm[Hg] Low 42-55 [facility] Comment on above: Order Comment: Speci men Type: VENOUS BLOOD SPECIMEN Performed By: #### 2 4344-4 ####[facility]ORATORYCLIA [id number] [address] CO2 [Moles/Vol] 23.4 mmol/L Low 25-29 [facility] Comment on above: Order Comment: Speci men Type: VENOUS BLOOD SPECIMEN Performed By: #### 2 4344-4 ####[facility]ORATORYCLIA [id number] [address] CO2 adjusted to patient's actual temperature (BldV) [Partial pressure] 43 mmHg Normal 42-55 [facility] Comment on above: Order Comment: Speci men Type: VENOUS BLOOD SPECIMEN Performed By: #### 2 4344-4 ####[facility]ORATORYCLIA [id number] [address] [place] Glucose [Mass/Vol] 101 mg/dL Normal 60-105 [facility] Comment on above: Order Comment: Speci men Type: VENOUS BLOOD SPECIMEN Performed By: #### 2 4344-4 ####[facility]ORATORYCLIA [id number] [address] [place] HCO3 (Bld) [Moles/Vol] 26.0 mmol/L Normal 24-28 [facility] Comment on above: Order Comment: Speci men Type: VENOUS BLOOD SPECIMEN Performed By: #### 2 4344-4 ####[facility]ORATORYCLIA [id number] [address] [place] Hematocrit (Bld) [Volume fraction] 38.4 % Low 39.0-51.0 [facility] Comment on above: Order Comment: Speci men Type: VENOUS BLOOD SPECIMEN Performed By: #### 2 4344-4 ####[facility]ATORYCLIA [id number] [address] Hemoglobin (Bld) [Mass/Vol] 12.5 g/dL Low 13.0-17.0 [facility] Comment on above: Order Comment: Speci men Type: VENOUS BLOOD SPECIMEN Performed By: #### 2 4344-4 ####[facility] LABORATORYCLIA [id number] [address] Methemoglobin (Bld) [Mass fraction] % Normal 0.0-1.5 [facility] Comment on above: Order Comment: Speci men Type: VENOUS BLOOD SPECIMEN Performed By: #### 2 4344-4 ####[facility]ORATORYCLIA [id number] [address] O2 THERAPY Ventilator Normal [facility] Comment on above: Order Comment: Speci men Type: VENOUS BLOOD SPECIMEN Performed By: #### 2 4344-4 ####[facility]ORYCL[facility] [id number] [address] Oxygen (BldV) [Partial pressure] 44 mm[Hg] Normal 35-45 [facility] Comment on above: Order Comment: Speci men Type: VENOUS BLOOD SPECIMEN Performed By: #### 2 4344-4 ####[facility]ATORYCLIA [id number] [place], [place] [id number] [place] [address] [place] Oxygen adjusted to patient's actual temperature (BldV) [Partial pressure] 46.8 mmHg High 35-45 [facility] Comment on above: Order Comment: Speci men Type: VENOUS BLOOD SPECIMEN Performed By: #### 2 4344-4 ####[facility]ATORYCL[facility] [id number] [place], [place] [id number] [place] [address] Oxygen saturation in Blood 76.5 % Normal 60-85 [facility] Comment on above: Order Comment: Speci men Type: VENOUS BLOOD SPECIMEN Performed By: #### 2 4344-4 ####[facility]ATORYCLIA [id number] [address] Oxyhemoglobin (BldV) [Mass fraction] 75 % Normal 60-85 [facility] Comment on above: Order Comment: Speci men Type: VENOUS BLOOD SPECIMEN Performed By: #### 2 4344-4 ####[facility]ORYCLIA [id number] [address] OF [facility] pH (BldV) 7.42 [pH] Normal 7.32-7.42 [facility] Comment on above: Order Comment: Speci men Type: VENOUS BLOOD SPECIMEN Performed By: #### 2 4344-4 ####[facility]ORATORYCLIA [id number] [address] pH adjusted to patient's actual temperature (BldV) 7.40 Normal 7.32-7.42 [facility] Comment on above: Order Comment: Speci men Type: VENOUS BLOOD SPECIMEN Performed By: #### 2 4344-4 ####[facility]ATORYCLIA [id number] [address] Potassium [Moles/Vol] 3.7 mmol/L Normal 3.5-5.0 [facility] Comment on above: Order Comment: Speci men Type: VENOUS BLOOD SPECIMEN Performed By: #### 2 4344-4 ####[facility]ORYCLIA [id number] [address] STATES [facility] Sodium [Moles/Vol] 141 mmol/L Normal 136-144 [facility] Comment on above: Order Comment: Speci men Type: VENOUS BLOOD SPECIMEN Performed By: #### 2 4344-4 ####[facility]ORYCLIA [id number] [address] OF [facility] Magnesium SerPl-mCncon 06-05 Magnesium [Mass/Vol] 2.3 mg/dL Normal 1.7-2.3 [facility] Comment on above: Order Comment: Speci men Type: BLOOD SPECIMEN Performed By: #### 1 9123-9, 35765-2, 2776- ####[facility]ORATORYCLIA [id number] [place] [address] [place] Phosphate SerPl-mCncon 06-05 Phosphate [Mass/Vol] 2.9 mg/dL Normal 2.7-4.8 [facility] Comment on above: Order Comment: Speci men Type: BLOOD SPECIMEN Performed By: #### 1 9123-9, 09482-4, 2776- ####[facility]ORATORYCLIA [id number] [place] [address] [place] Vancomycin random [Mass/Vol] on 06-05-2021 Vancomycin [Mass/Vol] 23.2 ug/mL High 10.0-20.0 [facility] Comment on above: Order Comment: Speci men Type: BLOOD SPECIMEN Result Comment: Refe rence ranges and high/low indicator flags are provided as general guidelines only. The treating physician must determine appropriate target levels/dosing based on the specific clinical situation. Performed By: #### 4 091-5 ####[facility]ORATORYCLIA [id number] [place] [address] [place] (1,3)-E-W-KZSLADkx 2 (1,3) B-D GLUCAN <31 Normal <60 [facility] Comment on above: Order Comment: Speci men Type: BLOOD SPECIMEN Performed By: #### B DGLUC ####[facility] LABCLIA [id number] [id number] [address] [place] (1,3) B-D GLUCAN, QUAL Negative Normal NEGAT [facility] Comment on above: Order Comment: Speci men Type: BLOOD SPECIMEN Result Comment: Cert ain fungi, such as the genus Cryptococcus which produces very low levels of (1,3)-wpji-C-zmlajp, may not result in serum (1,3)-jzxf-N-nuiefb sufficiently elevated so as to be detected by the assay. Infections with fungi of the order Mucorales such as Absidia, Mucor and Rhizopus which are not known to produce (1,3)-egjx-U-szbexi, are also observed to yield low serum (1,3)-owmg-B-ajoide titers.In addition, the yeast phase of Blastomyces dermatitidis produces little (1,3)-tdnd-R-esoszd and may not be detected by the assay. Performed By: #### B DGLUC ####[facility] LABCLIA [id number] [place] [id number] VIL[place] [id number] [place] ALLIED HEALTHon 06-04-2021 ALLIED HEALTH Normal [facility] ALLIED HEALTH Normal [facility] ARTERIAL BLOOD GASESon 06-04 Base excess Calc (Bld) [Moles/Vol] 3 mmol/L High 0-2 [facility] Comment on above: Order Comment: Speci men Type: ARTERIAL BLOOD SPECIMEN Performed By: #### A LLBG ####[facility]ORATORYCLIA [id number] [address] Body temperature 98.06 [degF] Normal [facility] Comment on above: Order Comment: Speci men Type: ARTERIAL BLOOD SPECIMEN Performed By: #### A LLBG ####[facility]ORATORYCLIA [id number] [address] STATES OF [facility] CALCIUM IONIZED, PH CORRECTED 1.19 mmol/L Normal 1.08-1.30 [facility] Comment on above: Order Comment: Speci men Type: ARTERIAL BLOOD SPECIMEN Performed By: #### A LLBG ####[facility]ORATORYCLIA [id number] [address] STATES OF [facility] Calcium.ionized (BldV) [Mass/Vol] 1.14 mmol/L Normal 1.08-1.30 [facility] Comment on above: Order Comment: Speci men Type: ARTERIAL BLOOD SPECIMEN Performed By: #### A LLBG ####[facility]ATORYCLIA [id number] [address] [place] Carboxyhemoglobin (BldA) [Mass fraction] 1.2 % Normal 0.0-2.0 [facility] Comment on above: Order Comment: Speci men Type: ARTERIAL BLOOD SPECIMEN Result Comment: Carb oxyhemoglobin Reference Range for Smokers: 2.0-8.0% Performed By: #### A LLBG ####[facility]ORYCLIA [id number] [address] CO2 (Bld) [Partial pressure] 35 mm Hg Low 36-46 [facility] Comment on above: Order Comment: Speci men Type: ARTERIAL BLOOD SPECIMEN Performed By: #### A LLBG ####[facility]ORYCLIA [id number] [address] CO2 [Moles/Vol] 23.2 mmol/L Normal 22-28 [facility] Comment on above: Order Comment: Speci men Type: ARTERIAL BLOOD SPECIMEN Performed By: #### A LLBG ####[facility]ATORYCLIA [id number] [address] CO2 adjusted to patient's actual temperature (Bld) [Partial pressure] 34 mmHg Low 36-46 [facility] Comment on above: Order Comment: Speci men Type: ARTERIAL BLOOD SPECIMEN Performed By: #### A LLBG ####[facility]ORYCLIA [id number] [address] STATES OF [facility] Glucose [Mass/Vol] 115 mg/dL High 60-105 [facility] Comment on above: Order Comment: Speci men Type: ARTERIAL BLOOD SPECIMEN Performed By: #### A LLBG ####[facility]ORYCLIA [id number] [address] [place] HCO3 (Bld) [Moles/Vol] 26 mmol/L Normal 22-26 [facility] Comment on above: Order Comment: Speci men Type: ARTERIAL BLOOD SPECIMEN Performed By: #### A LLBG ####[facility]ORYCLIA [id number] [address] [place] Hematocrit (Bld) [Volume fraction] 35.3 % Low 39.0-51.0 [facility] Comment on above: Order Comment: Speci men Type: ARTERIAL BLOOD SPECIMEN Performed By: #### A LLBG ####[facility]ATORYCLIA [id number] [address] Hemoglobin (Bld) [Mass/Vol] 11.5 g/dL Low 13.0-17.0 [facility] Comment on above: Order Comment: Speci men Type: ARTERIAL BLOOD SPECIMEN Performed By: #### A LLBG ####[facility]ORYCLIA [id number] [address] Methemoglobin (Bld) [Mass fraction] % Normal 0.0-1.5 [facility] Comment on above: Order Comment: Speci men Type: ARTERIAL BLOOD SPECIMEN Performed By: #### A LLBG ####[facility]ORYCLIA [id number] [address] O2 THERAPY Ventilator Normal [facility] Comment on above: Order Comment: Speci men Type: ARTERIAL BLOOD SPECIMEN Performed By: #### A LLBG ####[facility]ORYCLIA [id number] [address] Oxygen (Bld) [Partial pressure] 66 mm Hg Low 85-95 [facility] Comment on above: Order Comment: Speci men Type: ARTERIAL BLOOD SPECIMEN Performed By: #### A LLBG ####[facility]ORYCLIA [id number] [address] Oxygen adjusted to patient's actual temperature (Bld) [Partial pressure] 64.3 mmHg Low 85-95 [facility] Comment on above: Order Comment: Speci men Type: ARTERIAL BLOOD SPECIMEN Performed By: #### A LLBG ####[facility]ORYCLIA [id number] [address] OXYGEN SATURATION, ARTERIAL 95 % Normal 95-98 [facility] Comment on above: Order Comment: Speci men Type: ARTERIAL BLOOD SPECIMEN Performed By: #### A LLBG ####[facility]ORYCLIA [id number] [address] Oxyhemoglobin (BldA) [Mass fraction] 93 % Low 95-98 [facility] Comment on above: Order Comment: Speci men Type: ARTERIAL BLOOD SPECIMEN Performed By: #### A LLBG ####[facility]ORATORYCLIA [id number] [address] pH (Bld) 7.49 [pH] High 7.35-7.45 [facility] Comment on above: Order Comment: Speci men Type: ARTERIAL BLOOD SPECIMEN Performed By: #### A LLBG ####[facility]ATORYCLIA [id number] [address] pH adjusted to patient's actual temperature (Bld) 7.49 High 7.35-7.45 [facility] Comment on above: Order Comment: Speci men Type: ARTERIAL BLOOD SPECIMEN Performed By: #### A LLBG ####[facility]ATORYCLIA [id number] [address] Potassium [Moles/Vol] 2.8 mmol/L Low 3.5-5.0 [facility] Comment on above: Order Comment: Speci men Type: ARTERIAL BLOOD SPECIMEN Performed By: #### A LLBG ####[facility]ORATORYCLIA [id number] [address] Bas Metab 2000 Pnl SerPlon 0 06-04-2021 Sodium [Moles/Vol] 143 mmol/L Normal 136-144 [facility] Comment on above: Order Comment: Speci men Type: BLOOD SPECIMEN Performed By: #### 2 777-1, 38992-3, 54973-4 ####[facility]ORATORYCLIA [id number] [address] Order Comment: Speci men Type: ARTERIAL BLOOD SPECIMEN Performed By: #### A LLBG ####[facility]ORATORYCLIA [id number] [address] Basic metabolic 2000 panelon 06-04-2021 Anion gap [Moles/Vol] 11 mmol/L Normal 9-18 [facility] Comment on above: Order Comment: Speci men Type: BLOOD SPECIMEN Performed By: #### 2 777-1, , ####[facility]ORYCLIA [id number] [address] STATES OF [facility] Calcium [Mass/Vol] 8.5 mg/dL Normal 8.5-10.2 [facility] Comment on above: Order Comment: Speci men Type: BLOOD SPECIMEN Performed By: #### 2 777-1, , ####[facility]ORATORYCLIA [id number] [address] [place] Chloride [Moles/Vol] 107 mmol/L High 97-105 [facility] Comment on above: Order Comment: Speci men Type: BLOOD SPECIMEN Performed By: #### 2 777-1, , ####[facility]ATORYCLIA [id number] [address] [place] CO2 [Moles/Vol] 25 mmol/L Normal 22-30 [facility] Comment on above: Order Comment: Speci men Type: BLOOD SPECIMEN Performed By: #### 2 777-1, , ####[facility]ATORYCLIA [id number] [address] [place] Creatinine [Mass/Vol] 0.77 mg/dL Normal 0.73-1.22 [facility] Comment on above: Order Comment: Speci men Type: BLOOD SPECIMEN Performed By: #### 2 777-1, , ####[facility]ORATORYCLIA [id number] [place] [address] [place] GFR/1.73 sq M.predicted MDRD (S/P/Bld) [Vol rate/Area] mL/min/{1.73_m2} Normal [facility] Comment on above: Order Comment: [...] 777-1, , ####[facility] HE[facility] SERVICESCLIA [id number] [place] [address] [place] Glucose [Mass/Vol] 107 mg/dL High 74-99 [facility] Comment on above: Order Comment: Speci men Type: BLOOD SPECIMEN Result Comment: The [place] [employer] (ADA) provides guidance for cutoff [...] Standards of Medical Care in Diabetes 2016, [place] [employer]. Diabetes Care. 2016.39(Suppl 1). Performed By: #### 2 777-1, , ####[facility]ORATORYCLIA [id number] [place] [address] [place] Potassium [Moles/Vol] 3.1 mmol/L Low 3.7-5.1 [facility] Comment on above: Order Comment: Speci men Type: BLOOD SPECIMEN Performed By: #### 2 777-1, , 88286-0 ####[facility]ORATORYCLIA [id number] [place] [id number] [place] Urea nitrogen [Mass/Vol] 19 mg/dL Normal 9-24 [facility] Comment on above: Order Comment: Speci men Type: BLOOD SPECIMEN Performed By: #### 2 777-1, 28994-6, 55985-4 ####[facility]ORATORYCLIA [id number] [address] CBC panel Auto (Bld)on 06-04 Erythrocyte distribution width (RBC) [Ratio] 15.8 % High 11.5-15.0 [facility] Comment on above: Order Comment: Speci men Type: BLOOD SPECIMEN Performed By: #### 5 8410-2 ####[facility]ATORYCLIA [id number] [address] Hematocrit (Bld) [Volume fraction] 36.9 % Low 39.0-51.0 [facility] Comment on above: Order Comment: Speci men Type: BLOOD SPECIMEN Performed By: #### 5 8410-2 ####[facility]ATORYCLIA [id number] [address] Hemoglobin (Bld) [Mass/Vol] 11.2 g/dL Low 13.0-17.0 [facility] Comment on above: Order Comment: Speci men Type: BLOOD SPECIMEN Performed By: #### 5 8410-2 ####[facility]ATORYCLIA [id number] [address] MCH (RBC) [Entitic mass] 27.3 pg Normal 26.0-34.0 [facility] Comment on above: Order Comment: Speci men Type: BLOOD SPECIMEN Performed By: #### 5 8410-2 ####[facility]ATORYCLIA [id number] [address] MCHC (RBC) [Mass/Vol] 30.4 g/dL Low 30.5-36.0 [facility] Comment on above: Order Comment: Speci men Type: BLOOD SPECIMEN Performed By: #### 5 8410-2 ####[facility]ATORYCLIA [id number] [address] MCV (RBC) [Entitic vol] 89.8 fL Normal 80.0-100.0 [facility] Comment on above: Order Comment: Speci men Type: BLOOD SPECIMEN Performed By: #### 5 8410-2 ####[facility]ORATORYCLIA [id number] [address] Nucleated RBC (Bld) [#/Vol] 10*3/uL Normal <0.01 [facility] Comment on above: Order Comment: Speci men Type: BLOOD SPECIMEN Performed By: #### 5 8410-2 ####[facility]ORYCLIA [id number] [address] Platelet mean volume (Bld) [Entitic vol] 10.7 fL Normal 9.0-12.7 [facility] Comment on above: Order Comment: Speci men Type: BLOOD SPECIMEN Performed By: #### 5 8410-2 ####[facility]ATORYCLIA [id number] [address] Platelets (Bld) [#/Vol] 174 10*3/uL Normal 150-400 [facility] Comment on above: Order Comment: Speci men Type: BLOOD SPECIMEN Performed By: #### 5 8410-2 ####[facility]ATORYCLIA [id number] [address] RBC (Bld) [#/Vol] 4.11 10*6/uL Low 4.20-6.00 [facility] Comment on above: Order Comment: Speci men Type: BLOOD SPECIMEN Performed By: #### 5 8410-2 ####[facility]ATORYCLIA [id number] [address] WBC (Bld) [#/Vol] 8.29 10*3/uL Normal 3.70-11.00 [facility] Comment on above: Order Comment: Speci men Type: BLOOD SPECIMEN Performed By: #### 5 8410-2 ####[facility]ATORYCLIA [id number] [address] [place] CONSULT PROGon 06-04-2021 CONSULT PROG Normal [facility] CT BRAIN WO IVCONon 06-04-[address] BRAIN WO IVCON Normal [facility] CT CHEST W IVCON PEon 2021 CT CHEST W IVCON PE Normal [facility] Magnesium SerPl-mCncon 06-04 Magnesium [Mass/Vol] 2.2 mg/dL Normal 1.7-2.3 [facility] Comment on above: Order Comment: Speci men Type: BLOOD SPECIMEN Performed By: #### 2 777-1, 76779-2, 23073-9 ####[facility]ATORYCLIA [id number] [address] NT[facility] Natriuretic peptide.B prohormone N-Terminal [Mass/Vol] 229 pg/mL High <125 [facility] Comment on above: Order Comment: Speci men Type: BLOOD SPECIMEN Performed By: #### 3 3762-6, 4091-5 ####[facility]ORYCLIA [id number] [address] [place] Phosphate SerPl-ncon 06-04 Phosphate [Mass/Vol] 2.0 mg/dL Low 2.7-4.8 [facility] Comment on above: Order Comment: Speci men Type: BLOOD SPECIMEN Performed By: #### 2 777-1, 00564-3, 61387-9 ####[facility]ATORYCLIA [id number] [address] [place] Vancomycin random [Mass/Vol] on 06-04-2021 Vancomycin [Mass/Vol] 35.2 ug/mL High 10.0-20.0 [facility] Comment on above: Order Comment: Speci men Type: BLOOD SPECIMEN Result Comment: Refe rence ranges and high/low indicator flags are provided as general guidelines only. The treating physician must determine appropriate target levels/dosing based on the specific clinical situation. Performed By: #### 3 3762-6, 4091-5 ####[facility]ORATORYCLIA [id number] [address] STATES OF [facility] XR ABDOMEN 1V SUPINEon 06-04 XR ABDOMEN 1V SUPINE Normal [facility] ALLIED HEALTHon 06-03-2021 ALLIED HEALTH Normal [facility] ARTERIAL BLOOD GASESon 06-03 Base excess Calc (Bld) [Moles/Vol] 5 mmol/L High 0-2 [facility] Comment on above: Order Comment: Speci men Type: ARTERIAL BLOOD SPECIMEN Performed By: #### A LLBG ####[facility]ATORYCLIA [id number] [address] Body temperature 99.5 [degF] Normal [facility] Comment on above: Order Comment: Speci men Type: ARTERIAL BLOOD SPECIMEN Performed By: #### A LLBG ####[facility]ORATORYCLIA [id number] [address] CALCIUM IONIZED, PH CORRECTED 1.18 mmol/L Normal 1.08-1.30 [facility] Comment on above: Order Comment: Speci men Type: ARTERIAL BLOOD SPECIMEN Performed By: #### A LLBG ####[facility]ATORYCLIA [id number] [address] Calcium.ionized (BldV) [Mass/Vol] 1.16 mmol/L Normal 1.08-1.30 [facility] Comment on above: Order Comment: Speci men Type: ARTERIAL BLOOD SPECIMEN Performed By: #### A LLBG ####[facility]ORYCLIA [id number] [address] Carboxyhemoglobin (BldA) [Mass fraction] 1.2 % Normal 0.0-2.0 [facility] Comment on above: Order Comment: Speci men Type: ARTERIAL BLOOD SPECIMEN Result Comment: Carb oxyhemoglobin Reference Range for Smokers: 2.0-8.0% Performed By: #### A LLBG ####[facility]ATORYCLIA [id number] [address] CO2 (Bld) [Partial pressure] 45 mm Hg Normal 36-46 [facility] Comment on above: Order Comment: Speci men Type: ARTERIAL BLOOD SPECIMEN Performed By: #### A LLBG ####[facility]ORYCLIA [id number] [address] [place] CO2 [Moles/Vol] 26.9 mmol/L Normal 22-28 [facility] Comment on above: Order Comment: Speci men Type: ARTERIAL BLOOD SPECIMEN Performed By: #### A LLBG ####[facility]ORYCLIA [id number] [address] CO2 adjusted to patient's actual temperature (Bld) [Partial pressure] 47 mmHg High 36-46 [facility] Comment on above: Order Comment: Speci men Type: ARTERIAL BLOOD SPECIMEN Performed By: #### A LLBG ####[facility]ORYCLIA [id number] [address] Glucose [Mass/Vol] 141 mg/dL High 60-105 [facility] Comment on above: Order Comment: Speci men Type: ARTERIAL BLOOD SPECIMEN Performed By: #### A LLBG ####[facility]ATORYCLIA [id number] [address] OF [place] HCO3 (Bld) [Moles/Vol] 30 mmol/L High 22-26 [facility] Comment on above: Order Comment: Speci men Type: ARTERIAL BLOOD SPECIMEN Performed By: #### A LLBG ####[facility]ORYCLIA [id number] [address] OF [place] Hematocrit (Bld) [Volume fraction] 35.8 % Low 39.0-51.0 [facility] Comment on above: Order Comment: Speci men Type: ARTERIAL BLOOD SPECIMEN Performed By: #### A LLBG ####[facility]ORYCLIA [id number] [address] [place] Hemoglobin (Bld) [Mass/Vol] 11.6 g/dL Low 13.0-17.0 [facility] Comment on above: Order Comment: Speci men Type: ARTERIAL BLOOD SPECIMEN Performed By: #### A LLBG ####[facility]ORYCLIA [id number] [address] Methemoglobin (Bld) [Mass fraction] % Normal 0.0-1.5 [facility] Comment on above: Order Comment: Speci men Type: ARTERIAL BLOOD SPECIMEN Performed By: #### A LLBG ####[facility]ORYCLIA [id number] [address] OF [place] O2 THERAPY Ventilator Normal [facility] Comment on above: Order Comment: Speci men Type: ARTERIAL BLOOD SPECIMEN Performed By: #### A LLBG ####[facility]ORYCLIA [id number] [address] OF [facility] Oxygen (Bld) [Partial pressure] 69 mm Hg Low 85-95 [facility] Comment on above: Order Comment: Speci men Type: ARTERIAL BLOOD SPECIMEN Performed By: #### A LLBG ####[facility]ORYCLIA [id number] [address] OF [place] Oxygen adjusted to patient's actual temperature (Bld) [Partial pressure] 70.8 mmHg Low 85-95 [facility] Comment on above: Order Comment: Speci men Type: ARTERIAL BLOOD SPECIMEN Performed By: #### A LLBG ####[facility]ORYCLIA [id number] [address] [place] OXYGEN SATURATION, ARTERIAL 94 % Low 95-98 [facility] Comment on above: Order Comment: Speci men Type: ARTERIAL BLOOD SPECIMEN Performed By: #### A LLBG ####[facility]ORYCLIA [id number] [address] Oxyhemoglobin (BldA) [Mass fraction] 93 % Low 95-98 [facility] Comment on above: Order Comment: Speci men Type: ARTERIAL BLOOD SPECIMEN Performed By: #### A LLBG ####[facility]ORYCLIA [id number] [address] OF [facility] pH (Bld) 7.43 [pH] Normal 7.35-7.45 [facility] Comment on above: Order Comment: Speci men Type: ARTERIAL BLOOD SPECIMEN Performed By: #### A LLBG ####[facility]ORYCLIA [id number] [address] pH adjusted to patient's actual temperature (Bld) 7.43 Normal 7.35-7.45 [facility] Comment on above: Order Comment: Speci men Type: ARTERIAL BLOOD SPECIMEN Performed By: #### A LLBG ####[facility]ORYCLIA [id number] [address] Potassium [Moles/Vol] 3.1 mmol/L Low 3.5-5.0 [facility] Comment on above: Order Comment: Speci men Type: ARTERIAL BLOOD SPECIMEN Performed By: #### A LLBG ####[facility]ATORYCLIA [id number] [address] [place] Sodium [Moles/Vol] 145 mmol/L High 136-144 [facility] Comment on above: Order Comment: Speci men Type: ARTERIAL BLOOD SPECIMEN Performed By: #### A LLBG ####[facility]ORATORYCLIA [id number] [address] [place] ASPERGILLUS GALACTOMANNAN SE RUMon 06-03-2021 Galactomannan Ag IA Ql Negative Normal NEGAT [facility] Comment on above: Order Comment: [...] is suspected. Performed By: #### A SGALS ####[facility] LABCLIA [id number] [address] [id number] [address] [place] Galactomannan Ag IA Qn <0.50 Normal [facility] Comment on above: Order Comment: Speci men Type: BLOOD SPECIMEN Result Comment: Inde x Values are Interpreted as Follows:Negative specimens <0.50Positive specimens >=0.50 Performed By: #### A SGALS ####[facility] LABCLIA [id number] NILESH BUITRAGOK [id number] [place] [address] [place] [place] Basic metabolic 2000 panelon 06-03-2021 Anion gap [Moles/Vol] 8 mmol/L Low 9-18 [facility] Comment on above: Order Comment: Speci men Type: BLOOD SPECIMEN Performed By: #### 1 9123-9, 2777-1, 64935-6 ####[facility]ORYCLIA [id number] [address] [place] Calcium [Mass/Vol] 8.0 mg/dL Low 8.5-10.2 [facility] Comment on above: Order Comment: Speci men Type: BLOOD SPECIMEN Performed By: #### 1 9123-9, 2776-05, 25701-9 ####[facility]ATORYCLIA [id number] [place] [address] [place] Chloride [Moles/Vol] 110 mmol/L High 97-105 [facility] Comment on above: Order Comment: Speci men Type: BLOOD SPECIMEN Performed By: #### 1 9123-9, 2776-05, 14443-0 ####[facility]ORYCLIA [id number] [place] [address] [place] CO2 [Moles/Vol] 28 mmol/L Normal 22-30 [facility] Comment on above: Order Comment: Speci men Type: BLOOD SPECIMEN Performed By: #### 1 9123-9, 277-1, 72518-7 ####[facility]ORYCLIA [id number] [address] [place] Creatinine [Mass/Vol] 0.75 mg/dL Normal 0.73-1.22 [facility] Comment on above: Order Comment: Speci men Type: BLOOD SPECIMEN Performed By: #### 1 9123-9, 2777-1, 21217-0 ####[facility] SERVICESCLIA [id number] [place] [address] [place] GFR/1.73 sq M.predicted MDRD (S/P/Bld) [Vol rate/Area] mL/min/{1.73_m2} Normal [facility] Comment on above: Order Comment: [...] GFR. Performed By: #### 1 9123-9, 2777-, 98494-3 ####[id number] [place] [id number] [place] Glucose [Mass/Vol] 141 mg/dL High 74-99 [facility] Comment on above: Order Comment: Speccara men Type: BLOOD SPECIMEN Result Comment: The [place] [employer] (ADA) provides guidance for cutoff [...] Standards of Medical Care in Diabetes 2016, [place] [employer]. Diabetes Care. 2016.39(Suppl 1). Performed By: #### 1 9123-9, 2777-1, 91191-3 ####[facility]ORATORYCLIA [id number] [place] [address] [place] [facility] Potassium [Moles/Vol] 3.3 mmol/L Low 3.7-5.1 [facility] Comment on above: Order Comment: Speci men Type: BLOOD SPECIMEN Performed By: #### 1 9123-9, 2777-1, 21082-0 ####[facility]ORATORYCLIA [id number] [place] [address] [place] [facility] Sodium [Moles/Vol] 146 mmol/L High 136-144 [facility] Comment on above: Order Comment: Speci men Type: BLOOD SPECIMEN Performed By: #### 1 9123-9, 2777-1, 51355-1 ####[facility]ATORYCLIA [id number] [address] STATES [facility] Urea nitrogen [Mass/Vol] 10 mg/dL Normal 9-24 [facility] Comment on above: Order Comment: Speci men Type: BLOOD SPECIMEN Performed By: #### 1 9123-9, 27771, 04461-3 ####[facility]ORATORYCLIA [id number] [address] OF [facility] CASE MANAGEMon 06-03-2021 CASE MANAGEM Normal [facility] CBC panel Auto (Bld)on 06-03 Erythrocyte distribution width (RBC) [Ratio] 15.6 % High 11.5-15.0 [facility] Comment on above: Order Comment: Speci men Type: BLOOD SPECIMEN Performed By: #### 5 8410-2 ####[facility]ORATORYCLIA [id number] [place] [id number] [place] [facility] Hematocrit (Bld) [Volume fraction] 36.9 % Low 39.0-51.0 [facility] Comment on above: Order Comment: Speci men Type: BLOOD SPECIMEN Performed By: #### 5 8410-2 ####[facility]ORATORYCLIA [id number] [place] [address] [place] Hemoglobin (Bld) [Mass/Vol] 11.1 g/dL Low 13.0-17.0 [facility] Comment on above: Order Comment: Speci men Type: BLOOD SPECIMEN Performed By: #### 5 8410-2 ####[facility]ORATORYCLIA [id number] [address] MCH (RBC) [Entitic mass] 27.0 pg Normal 26.0-34.0 [facility] Comment on above: Order Comment: Speci men Type: BLOOD SPECIMEN Performed By: #### 5 8410-2 ####[facility]ORATORYCLIA [id number] [address] MCHC (RBC) [Mass/Vol] 30.1 g/dL Low 30.5-36.0 [facility] Comment on above: Order Comment: Speci men Type: BLOOD SPECIMEN Performed By: #### 5 8410-2 ####[facility]ORATORYCLIA [id number] [address] MCV (RBC) [Entitic vol] 89.8 fL Normal 80.0-100.0 [facility] Comment on above: Order Comment: Speci men Type: BLOOD SPECIMEN Performed By: #### 5 8410-2 ####[facility]ORATORYCLIA [id number] [address] Nucleated RBC (Bld) [#/Vol] 10*3/uL Normal <0.01 [facility] Comment on above: Order Comment: Speci men Type: BLOOD SPECIMEN Performed By: #### 5 8410-2 ####[facility]ORATORYCLIA [id number] [address] Platelet mean volume (Bld) [Entitic vol] 10.5 fL Normal 9.0-12.7 [facility] Comment on above: Order Comment: Speci men Type: BLOOD SPECIMEN Performed By: #### 5 8410-2 ####[facility]ATORYCLIA [id number] [address] Platelets (Bld) [#/Vol] 196 10*3/uL Normal 150-400 [facility] Comment on above: Order Comment: Speci men Type: BLOOD SPECIMEN Performed By: #### 5 8410-2 ####[facility]ATORYCLIA [id number] [address] RBC (Bld) [#/Vol] 4.11 10*6/uL Low 4.20-6.00 [facility] Comment on above: Order Comment: Speci men Type: BLOOD SPECIMEN Performed By: #### 5 8410-2 ####[facility]ATORYCLIA [id number] [address] WBC (Bld) [#/Vol] 8.18 10*3/uL Normal 3.70-11.00 [facility] Comment on above: Order Comment: Speci men Type: BLOOD SPECIMEN Performed By: #### 5 8410-2 ####[facility]ORATORYCLIA [id number] [address] CONSULTon 06-03-2021 CONSULT Normal [facility] CONSULT PROGon 06-03-2021 CONSULT PROG Normal [facility] Gas and Carbon monoxide pane l (BldV)on 06-03-2021 Base excess Calc (BldV) [Moles/Vol] 1.4 mmol/L Normal 0-2 [facility] Comment on above: Order Comment: Speci men Type: VENOUS BLOOD SPECIMEN Performed By: #### 2 4344-4 ####[facility]ORATORYCLIA [id number] [address] Body temperature 98.42 [degF] Normal [facility] Comment on above: Order Comment: Speci men Type: VENOUS BLOOD SPECIMEN Performed By: #### 2 4344-4 ####[facility]ORATORYCLIA [id number] [address] CALCIUM IONIZED, PH CORRECTED 1.09 mmol/L Normal 1.08-1.30 [facility] Comment on above: Order Comment: Speci men Type: VENOUS BLOOD SPECIMEN Performed By: #### 2 4344-4 ####[facility]ATORYCLIA [id number] [address] Calcium.ionized (BldV) [Mass/Vol] 1.12 mmol/L Normal 1.08-1.30 [facility] Comment on above: Order Comment: Speci men Type: VENOUS BLOOD SPECIMEN Performed By: #### 2 4344-4 ####[facility]ATORYCLIA [id number] [address] Carboxyhemoglobin (BldV) [Mass fraction] 1.7 % Normal 0.0-2.0 [facility] Comment on above: Order Comment: Speci men Type: VENOUS BLOOD SPECIMEN Result Comment: Carb oxyhemoglobin Reference Range for Smokers: 2.0-8.0% Performed By: #### 2 4344-4 ####[facility]ATORYCLIA [id number] [address] CO2 (BldV) [Partial pressure] 50 mm[Hg] Normal 42-55 [facility] Comment on above: Order Comment: Speci men Type: VENOUS BLOOD SPECIMEN Performed By: #### 2 4344-4 ####[facility]ATORYCLIA [id number] [address] CO2 [Moles/Vol] 24.9 mmol/L Low 25-29 [facility] Comment on above: Order Comment: Speci men Type: VENOUS BLOOD SPECIMEN Performed By: #### 2 4344-4 ####[facility]ORYCLIA [id number] [address] CO2 adjusted to patient's actual temperature (BldV) [Partial pressure] 50 mmHg Normal 42-55 [facility] Comment on above: Order Comment: Speci men Type: VENOUS BLOOD SPECIMEN Performed By: #### 2 4344-4 ####[facility]ORYCLIA [id number] [address] FIO2 30 % Normal [facility] Comment on above: Order Comment: Speci men Type: VENOUS BLOOD SPECIMEN Performed By: #### 2 4344-4 ####[facility]ORYCLIA [id number] [address] OF [facility] Glucose [Mass/Vol] 191 mg/dL High 60-105 [facility] Comment on above: Order Comment: Speci men Type: VENOUS BLOOD SPECIMEN Performed By: #### 2 4344-4 ####[facility]ORATORYCLIA [id number] [address] [place] HCO3 (Bld) [Moles/Vol] 27.1 mmol/L Normal 24-28 [facility] Comment on above: Order Comment: Speci men Type: VENOUS BLOOD SPECIMEN Performed By: #### 2 4344-4 ####[facility]ORYCLIA [id number] [address] Hematocrit (Bld) [Volume fraction] 36.2 % Low 39.0-51.0 [facility] Comment on above: Order Comment: Speci men Type: VENOUS BLOOD SPECIMEN Performed By: #### 2 4344-4 ####[facility]ORYCLIA [id number] [address] OF [facility] Hemoglobin (Bld) [Mass/Vol] 11.8 g/dL Low 13.0-17.0 [facility] Comment on above: Order Comment: Speci men Type: VENOUS BLOOD SPECIMEN Performed By: #### 2 4344-4 ####[facility]ORYCLIA [id number] [address] INHALED TIDAL VOLUME (ML) 530 Normal [facility] Comment on above: Order Comment: Speci men Type: VENOUS BLOOD SPECIMEN Performed By: #### 2 4344-4 ####[facility]ORYCLIA [id number] [address] Methemoglobin (Bld) [Mass fraction] % Normal 0.0-1.5 [facility] Comment on above: Order Comment: Speci men Type: VENOUS BLOOD SPECIMEN Performed By: #### 2 4344-4 ####[facility]ORYCLIA [id number] [place] [address] [place] O2 THERAPY Ventilator Normal [facility] Comment on above: Order Comment: Speci men Type: VENOUS BLOOD SPECIMEN Performed By: #### 2 4344-4 ####[facility]ORYCLIA [id number] [place], [place] [address] [place] [address] [place] Oxygen (BldV) [Partial pressure] 69 mm[Hg] High 35-45 [facility] Comment on above: Order Comment: Speci men Type: VENOUS BLOOD SPECIMEN Performed By: #### 2 4344-4 ####[facility]ORYCLIA [id number] [place], [place] [address] [place] [address] Oxygen adjusted to patient's actual temperature (BldV) [Partial pressure] 68.8 mmHg High 35-45 [facility] Comment on above: Order Comment: Speci men Type: VENOUS BLOOD SPECIMEN Performed By: #### 2 4344-4 ####[facility]ORYCLIA [id number] [address] [place] Oxygen saturation in Blood 92.4 % High 60-85 [facility] Comment on above: Order Comment: Speci men Type: VENOUS BLOOD SPECIMEN Performed By: #### 2 4344-4 ####[facility]ORYCLIA [id number] [address] [place] Oxyhemoglobin (BldV) [Mass fraction] 90 % High 60-85 [facility] Comment on above: Order Comment: Speci men Type: VENOUS BLOOD SPECIMEN Performed By: #### 2 4344-4 ####[facility]ORYCLIA [id number] [place], [place] [address] [place] [address] [place] PEEP/CPAP 8 cmH2O Normal [facility] Comment on above: Order Comment: Speci men Type: VENOUS BLOOD SPECIMEN Performed By: #### 2 4344-4 ####[facility]ORYCLIA [id number] [address] [place] pH (BldV) 7.35 [pH] Normal 7.32-7.42 [facility] Comment on above: Order Comment: Speci men Type: VENOUS BLOOD SPECIMEN Performed By: #### 2 4344-4 ####[facility]CLIA [id number] [address] pH adjusted to patient's actual temperature (BldV) 7.35 Normal 7.32-7.42 [facility] Comment on above: Order Comment: Speci men Type: VENOUS BLOOD SPECIMEN Performed By: #### 2 4344-4 ####[facility]ORYCLIA [id number] [address] Potassium [Moles/Vol] 3.6 mmol/L Normal 3.5-5.0 [facility] Comment on above: Order Comment: Speci men Type: VENOUS BLOOD SPECIMEN Performed By: #### 2 4344-4 ####[facility]ATORYCLIA [id number] [address] SET VENTILATOR RESPIRATORY RATE (BPM) 18 BPM Normal [facility] Comment on above: Order Comment: Speci men Type: VENOUS BLOOD SPECIMEN Performed By: #### 2 4344-4 ####[facility]ORYCLIA [id number] [address] Sodium [Moles/Vol] 141 mmol/L Normal 136-144 [facility] Comment on above: Order Comment: Speci men Type: VENOUS BLOOD SPECIMEN Performed By: #### 2 4344-4 ####[facility]ATORYCLIA [id number] [address] [place] HIV 1+2 Ab IA Qlon 2 HIV 1 and 2 Ab IA.rapid Nom Normal [facility] Comment on above: Order Comment: Speci men Type: BLOOD SPECIMEN Result Comment: Test not indicated. Performed By: #### 3 1201-7, TOXMG ####[facility]ORYCLIA [id number] [address] HIV 1+2 Ab+HIV1 p24 Ag IA Ql Non-Reactive Normal Nonreactive [facility] Comment on above: Order Comment: Speci men Type: BLOOD SPECIMEN Result Comment: [place] Rev. Code 3701.243(E): This information has been [...] diagnoses. Performed By: #### 3 1201-7, TOXMG ####[facility]ATORYCLIA [id number] [address] HIVINT Normal [facility] Comment on above: Order Comment: Speci men Type: BLOOD SPECIMEN Result Comment: No e vidence of HIV-1 or HIV-2 infection. Should recent infection be suspected, repeat testing may be considered 2-3 weeks after this draw. Performed By: #### 3 1201-7, TOXMG ####[facility]ATORYCLIA [id number] [address] [place] Magnesium SerPl-mCncon 06-03 Magnesium [Mass/Vol] 1.9 mg/dL Normal 1.7-2.3 [facility] Comment on above: Order Comment: Speci men Type: BLOOD SPECIMEN Performed By: #### 1 9123-9, 2777-1, 13831-4 ####[facility]ATORYCLIA [id number] [address] [place] NUTRITIONon 06-03-2021 NUTRITION Normal [facility] Phosphate SerPl-mCncon 06-03 Phosphate [Mass/Vol] 1.9 mg/dL Low 2.7-4.8 [facility] Comment on above: Order Comment: Speci men Type: BLOOD SPECIMEN Performed By: #### 1 9123-9, 2777-1, 02610-4 ####[facility]ATORYCLIA [id number] [address] [place] TOXOPLASMOSIS IGM AND IGG AB on 06-03-2021 TOXO IGG QUAL Negative Normal Negative [facility] Comment on above: Order Comment: Speci men Type: BLOOD SPECIMEN Result Comment: No s erological evidence of past exposure to Toxoplasma gondii. Cannot exclude recent infection if the specimen collected within 3-4 weeks after infection.Negative <6.4 IU/mLEquivocal 6.4-9.9 IU/mLPositive >=10.0 IU/mL Performed By: #### 3 1201-7, TOXMG ####[facility]ORYCLIA [id number] [address] TOXO IGM QUAL Negative Normal Negative [facility] Comment on above: Order Comment: Speci men Type: BLOOD SPECIMEN Result Comment: No s erological evidence of recent exposure to Toxoplasma gondii.Negative <0.9 IndexEquivocal 0.9-0.99 IndexPositive >=1.0 Index Performed By: #### 3 1201-7, TOXMG ####[facility]ATORYCLIA [id number] [address] STATES OF [facility] US DVT LOWER BILon US DVT LOWER RAINER Normal [facility] XR CHEST 1V FRONTALon 2021 XR CHEST 1V FRONTAL Normal [facility] ARTERIAL BLOOD GASESon 06-02 Base excess Calc (Bld) [Moles/Vol] 2 mmol/L Normal 0-2 [facility] Comment on above: Order Comment: Speci men Type: ARTERIAL BLOOD SPECIMEN Performed By: #### A LLBG ####[facility]ATORYCLIA [id number] [address] OF [facility] Body temperature 99.32 [degF] Normal [facility] Comment on above: Order Comment: Speci men Type: ARTERIAL BLOOD SPECIMEN Performed By: #### A LLBG ####[facility]ATORYCLIA [id number] [address] CALCIUM IONIZED, PH CORRECTED 1.15 mmol/L Normal 1.08-1.30 [facility] Comment on above: Order Comment: Speci men Type: ARTERIAL BLOOD SPECIMEN Performed By: #### A LLBG ####[facility]ATORYCLIA [id number] [address] [place] Calcium.ionized (BldV) [Mass/Vol] 1.13 mmol/L Normal 1.08-1.30 [facility] Comment on above: Order Comment: Speci men Type: ARTERIAL BLOOD SPECIMEN Performed By: #### A LLBG ####[facility]CLIA [id number] [address] Carboxyhemoglobin (BldA) [Mass fraction] 1.4 % Normal 0.0-2.0 [facility] Comment on above: Order Comment: Speci men Type: ARTERIAL BLOOD SPECIMEN Result Comment: Carb oxyhemoglobin Reference Range for Smokers: 2.0-8.0% Performed By: #### A LLBG ####[facility]ORYCLIA [id number] [address] CO2 (Bld) [Partial pressure] 39 mm Hg Normal 36-46 [facility] Comment on above: Order Comment: Speci men Type: ARTERIAL BLOOD SPECIMEN Performed By: #### A LLBG ####[facility]ORYCLIA [id number] [address] CO2 [Moles/Vol] 23.4 mmol/L Normal 22-28 [facility] Comment on above: Order Comment: Speci men Type: ARTERIAL BLOOD SPECIMEN Performed By: #### A LLBG ####[facility]ORYCLIA [id number] [address] CO2 adjusted to patient's actual temperature (Bld) [Partial pressure] 40 mmHg Normal 36-46 [facility] Comment on above: Order Comment: Speci men Type: ARTERIAL BLOOD SPECIMEN Performed By: #### A LLBG ####[facility]CLIA [id number] [address] Glucose [Mass/Vol] 156 mg/dL High 60-105 [facility] Comment on above: Order Comment: Speci men Type: ARTERIAL BLOOD SPECIMEN Performed By: #### A LLBG ####[facility]ORYCLIA [id number] [address] [place] HCO3 (Bld) [Moles/Vol] 26 mmol/L Normal 22-26 [facility] Comment on above: Order Comment: Speci men Type: ARTERIAL BLOOD SPECIMEN Performed By: #### A LLBG ####[facility]ORYCLIA [id number] [address] [place] Hematocrit (Bld) [Volume fraction] 33.9 % Low 39.0-51.0 [facility] Comment on above: Order Comment: Speci men Type: ARTERIAL BLOOD SPECIMEN Performed By: #### A LLBG ####[facility]ORYCLIA [id number] [address] STATES OF [facility] Hemoglobin (Bld) [Mass/Vol] 11.0 g/dL Low 13.0-17.0 [facility] Comment on above: Order Comment: Speci men Type: ARTERIAL BLOOD SPECIMEN Performed By: #### A LLBG ####[facility]ORYCLIA [id number] [address] Methemoglobin (Bld) [Mass fraction] % Normal 0.0-1.5 [facility] Comment on above: Order Comment: Speci men Type: ARTERIAL BLOOD SPECIMEN Performed By: #### A LLBG ####[facility]ATORYCLIA [id number] [address] [place] O2 THERAPY Ventilator Normal [facility] Comment on above: Order Comment: Speci men Type: ARTERIAL BLOOD SPECIMEN Performed By: #### A LLBG ####[facility]ORYCLIA [id number] [address] OF [place] Oxygen (Bld) [Partial pressure] 70 mm Hg Low 85-95 [facility] Comment on above: Order Comment: Speci men Type: ARTERIAL BLOOD SPECIMEN Performed By: #### A LLBG ####[facility]ORYCLIA [id number] [address] [place] Oxygen adjusted to patient's actual temperature (Bld) [Partial pressure] 72.2 mmHg Low 85-95 [facility] Comment on above: Order Comment: Speci men Type: ARTERIAL BLOOD SPECIMEN Performed By: #### A LLBG ####[facility]CLIA [id number] [address] OXYGEN SATURATION, ARTERIAL 96 % Normal 95-98 [facility] Comment on above: Order Comment: Speci men Type: ARTERIAL BLOOD SPECIMEN Performed By: #### A LLBG ####[facility]ORYCLIA [id number] [address] Oxyhemoglobin (BldA) [Mass fraction] 94 % Low 95-98 [facility] Comment on above: Order Comment: Speci men Type: ARTERIAL BLOOD SPECIMEN Performed By: #### A LLBG ####[facility]ORYCLIA [id number] [address] OF [facility] pH (Bld) 7.43 [pH] Normal 7.35-7.45 [facility] Comment on above: Order Comment: Speci men Type: ARTERIAL BLOOD SPECIMEN Performed By: #### A LLBG ####[facility]ORYCLIA [id number] [address] pH adjusted to patient's actual temperature (Bld) 7.42 Normal 7.35-7.45 [facility] Comment on above: Order Comment: Speci men Type: ARTERIAL BLOOD SPECIMEN Performed By: #### A LLBG ####[facility]ORYCLIA [id number] [address] OF [facility] Potassium [Moles/Vol] 2.6 mmol/L Low 3.5-5.0 [facility] Comment on above: Order Comment: Speci men Type: ARTERIAL BLOOD SPECIMEN Performed By: #### A LLBG ####[facility]ORYCLIA [id number] [address] Sodium [Moles/Vol] 142 mmol/L Normal 136-144 [facility] Comment on above: Order Comment: Speci men Type: ARTERIAL BLOOD SPECIMEN Performed By: #### A LLBG ####[facility]ORYCLIA [id number] [place] [address] [place] Ammonia Plas-sCncon 06-02-19 22 Ammonia (P) [Moles/Vol] 20 umol/L Normal 16-60 [facility] Comment on above: Order Comment: Speci men Type: BLOOD SPECIMEN Performed By: #### 1 6362-6 ####[facility]ORATORYCLIA [id number] [address] [place] Bacteria CSF Culton 06-02-19 22 Bacteria identified Cx Nom (CSF) CULTURE, CSF: No growth 14 days GRAM STAIN: No organisms seen Rare Polymorphonuclear leukocytes Gram stain performed on cytospun specimen. Normal [facility] Comment on above: Performed By: #### 6 06-4 ####[facility]ATORYCLIA [id number] [address] [place] Basic metabolic 2000 panelon 06-02-2021 Anion gap [Moles/Vol] 10 mmol/L Normal 9-18 [facility] Comment on above: Order Comment: Speci men Type: BLOOD SPECIMEN Performed By: #### 2 4321-2, , 2776-05 ####[facility]ORATORYCLIA [id number] [place] [address] [place] Calcium [Mass/Vol] 8.1 mg/dL Low 8.5-10.2 [facility] Comment on above: Order Comment: Speci men Type: BLOOD SPECIMEN Performed By: #### 2 4321-2, , 2776-05 ####[facility]ATORYCLIA [id number] [place] [address] [place] Chloride [Moles/Vol] 108 mmol/L High 97-105 [facility] Comment on above: Order Comment: Speci men Type: BLOOD SPECIMEN Performed By: #### 2 4321-2, , 2776-05 ####[facility]ORYCLIA [id number] [place] [address] [place] CO2 [Moles/Vol] 24 mmol/L Normal 22-30 [facility] Comment on above: Order Comment: Speci men Type: BLOOD SPECIMEN Performed By: #### 2 4321-2, , 2776-05 ####[facility]ATORYCLIA [id number] [place] [address] [place] [facility] Creatinine [Mass/Vol] 0.78 mg/dL Normal 0.73-1.22 [facility] Comment on above: Order Comment: Speci men Type: BLOOD SPECIMEN Performed By: #### 2 4321-2, , 2776-05 ####[facility] LABORATORYCLIA [id number] [place] [address] [place] GFR/1.73 sq M.predicted MDRD (S/P/Bld) [Vol rate/Area] mL/min/{1.73_m2} Normal [facility] Comment on above: Order Comment: [...] , 2776-05 ####[facility] SERVICESCLIA [id number] [place] [address] [place] Glucose [Mass/Vol] 162 mg/dL High 74-99 [facility] Comment on above: Order Comment: Speci men Type: BLOOD SPECIMEN Result Comment: The [place] [employer] (ADA) provides guidance for cutoff [...] Standards of Medical Care in Diabetes 2016, [place] [employer]. Diabetes Care. 2016.39(Suppl 1). Performed By: #### 2 4321-2, , 2776-05 ####[facility]ORYCLIA [id number] [address] Potassium [Moles/Vol] 2.7 mmol/L Low 3.7-5.1 [facility] Comment on above: Order Comment: Speci men Type: BLOOD SPECIMEN Performed By: #### 2 4321-2, , 2776-05 ####[facility]ATORYCLIA [id number] [address] Sodium [Moles/Vol] 142 mmol/L Normal 136-144 [facility] Comment on above: Order Comment: Speci men Type: BLOOD SPECIMEN Performed By: #### 2 1-2, , 2776-05 ####[facility]ORYCLIA [id number] [address] Urea nitrogen [Mass/Vol] 12 mg/dL Normal 9-24 [facility] Comment on above: Order Comment: Speci men Type: BLOOD SPECIMEN Performed By: #### 2 4321-2, , 2776-05 ####[facility]ORYCLIA [id number] [address] CBC panel Auto (Bld)on 06-02 Erythrocyte distribution width (RBC) [Ratio] 15.0 % Normal 11.5-15.0 [facility] Comment on above: Order Comment: Speci men Type: BLOOD SPECIMEN Performed By: #### 5 8410-2 ####[facility]ORYCLIA [id number] [address] Hematocrit (Bld) [Volume fraction] 34.3 % Low 39.0-51.0 [facility] Comment on above: Order Comment: Speci men Type: BLOOD SPECIMEN Performed By: #### 5 8410-2 ####[facility]ORYCLIA [id number] [address] Hemoglobin (Bld) [Mass/Vol] 10.3 g/dL Low 13.0-17.0 [facility] Comment on above: Order Comment: Speci men Type: BLOOD SPECIMEN Performed By: #### 5 8410-2 ####[facility]ORYCLIA [id number] [address] MCH (RBC) [Entitic mass] 27.0 pg Normal 26.0-34.0 [facility] Comment on above: Order Comment: Speci men Type: BLOOD SPECIMEN Performed By: #### 5 8410-2 ####[facility]ORYCLIA [id number] [address] MCHC (RBC) [Mass/Vol] 30.0 g/dL Low 30.5-36.0 [facility] Comment on above: Order Comment: Speci men Type: BLOOD SPECIMEN Performed By: #### 5 8410-2 ####[facility]ORYCLIA [id number] [address] MCV (RBC) [Entitic vol] 90.0 fL Normal 80.0-100.0 [facility] Comment on above: Order Comment: Speci men Type: BLOOD SPECIMEN Performed By: #### 5 8410-2 ####[facility]ORYCLIA [id number] [address] Nucleated RBC (Bld) [#/Vol] 10*3/uL Normal <0.01 [facility] Comment on above: Order Comment: Speci men Type: BLOOD SPECIMEN Performed By: #### 5 8410-2 ####[facility]ORYCLIA [id number] [address] Platelet mean volume (Bld) [Entitic vol] 10.2 fL Normal 9.0-12.7 [facility] Comment on above: Order Comment: Speci men Type: BLOOD SPECIMEN Performed By: #### 5 8410-2 ####[facility]ORYCLIA [id number] [address] Platelets (Bld) [#/Vol] 194 10*3/uL Normal 150-400 [facility] Comment on above: Order Comment: Speci men Type: BLOOD SPECIMEN Performed By: #### 5 8410-2 ####[facility]ORYCLIA [id number] [address] [place] RBC (Bld) [#/Vol] 3.81 10*6/uL Low 4.20-6.00 [facility] Comment on above: Order Comment: Speci men Type: BLOOD SPECIMEN Performed By: #### 5 8410-2 ####[facility]ORYCLIA [id number] [address] WBC (Bld) [#/Vol] 9.22 10*3/uL Normal 3.70-11.00 [facility] Comment on above: Order Comment: Speci men Type: BLOOD SPECIMEN Performed By: #### 5 8410-2 ####[facility]ORYCLIA [id number] [address] CONSULT PROGon 06-02-2021 CONSULT PROG Normal [facility] CSF MANUAL DIFFon 06-02-2021 DIF TTL, CSF 25 cells counted Normal [facility] Comment on above: Order Comment: Speci men Type: CEREBROSPINAL FLUID Performed By: #### 3 4563-7, [id number], [id number] ####[facility]ORYCLIA [id number] [address] OF [facility] LYMPH%, CSF 4 % Low 50-90 [facility] Comment on above: Order Comment: Speci men Type: CEREBROSPINAL FLUID Performed By: #### 3 4563-7, [id number], [id number] ####[facility]ORYCLIA [id number] [address] [place] MACRO%, CSF 4 % High <1 [facility] Comment on above: Order Comment: Speci men Type: CEREBROSPINAL FLUID Performed By: #### 3 4563-7, [id number], [id number] ####[facility]ORYCLIA [id number] [address] [place] MONO%, CSF 20 % Normal 10-50 [facility] Comment on above: Order Comment: Speci men Type: CEREBROSPINAL FLUID Performed By: #### 3 4563-7, [id number], [id number] ####[facility]ORYCLIA [id number] [address] [place] NEUT%, CSF 72 % High 0-3 [facility] Comment on above: Order Comment: Speci men Type: CEREBROSPINAL FLUID Performed By: #### 3 4563-7, [id number], [id number] ####[facility]ORYCLIA [id number] [address] CSF PATHOLOGIST INTERP (LAB REFLEX ORDER-NO BILL)on 06-02-2021 CSF STAFF REVIEW Negative Normal [facility] Comment on above: Order Comment: Speci men Type: CEREBROSPINAL FLUID Performed By: #### 3 4563-7, [id number], [id number] ####[facility]ORYCLIA [id number] [address] Pathologist name Reviewed by Amador Stevens MD Normal [facility] Comment on above: Order Comment: Speci men Type: CEREBROSPINAL FLUID Performed By: #### 3 4563-7, [id number], [id number] ####[facility]ORYCLIA [id number] [address] Cell count panel (CSF)on Clarity (CSF) Clear Normal Clear [facility] Comment on above: Order Comment: Speci men Type: CEREBROSPINAL FLUID Performed By: #### 3 4563-7, [id number], [id number] ####[facility]ORYCLIA [id number] [address] Clarity (Unsp spec) Not Indicated Normal Clear [facility] Comment on above: Order Comment: Speci men Type: CEREBROSPINAL FLUID Performed By: #### 3 4563-7, [id number], [id number] ####[facility]ORYCLIA [id number] [address] Color (CSF) Colorless Normal Colorless [facility] Comment on above: Order Comment: Speci men Type: CEREBROSPINAL FLUID Performed By: #### 3 4563-7, [id number], [id number] ####[facility]ORYCLIA [id number] [address] Color (Spun CSF) Not Indicated Normal Colorless [facility] Comment on above: Order Comment: Speci men Type: CEREBROSPINAL FLUID Performed By: #### 3 4563-7, [id number], [id number] ####[facility]ORYCLIA [id number] [address] CSF TUBE NUMBER Sterile Container Normal [facility] Comment on above: Order Comment: Speci men Type: CEREBROSPINAL FLUID Performed By: #### 3 4563-7, [id number], [id number] ####[facility]ORYCLIA [id number] [address] RBC Manual cnt (CSF) [#/Vol] 117 cells/uL High 0-5 [facility] Comment on above: Order Comment: Speci men Type: CEREBROSPINAL FLUID Performed By: #### 3 4563-7, [id number], [id number] ####[facility]ORYCLIA [id number] [address] WBC Manual cnt (CSF) [#/Vol] 1 cells/uL Normal 0-5 [facility] Comment on above: Order Comment: Speci men Type: CEREBROSPINAL FLUID Performed By: #### 3 4563-7, [id number], [id number] ####[facility]ORYCLIA [id number] [address] Glucose CSF-mCncon 2 Glucose (CSF) [Mass/Vol] 82 mg/dL High 40-70 [facility] Comment on above: Order Comment: Speci men Type: CEREBROSPINAL FLUID Result Comment: Lumb ar CSF glucose values of healthy patients are approximately 60% of the plasma values and must always be compared with a concurrently measured plasma value for adequate clinical interpretation.References: 1. Glucose HK (GLUC3) [package insert V 12.0 [place]]. [employer], [place], [place]. September 2015. 2. Michelle Moore, Loki HGarfield (2015). Chapter 7: Glucose and Lactate. FGarfield Alcocer al.(eds.), Cerebrospinal Fluid in Clinical Neurology. Stewart: [place]. Performed By: #### 2 342-4 ####[facility]ORYCLIA [id number] [address] HEPATIC FUNCTION PNLon 06-02 Albumin [Mass/Vol] 3.2 g/dL Low 3.9-4.9 [facility] Comment on above: Order Comment: Speci men Type: BLOOD SPECIMEN Performed By: #### [place], [address]-4 ####[facility]ORYCLIA [id number] [address] ALP [Catalytic activity/Vol] 67 U/L Normal 38-113 [facility] Comment on above: Order Comment: Speci men Type: BLOOD SPECIMEN Performed By: #### H FP, 94771-2 ####[facility]ORYCLIA [id number] [address] STATES OF [facility] ALT With P-5'-P [Catalytic activity/Vol] 16 U/L Normal 10-54 [facility] Comment on above: Order Comment: Speci men Type: BLOOD SPECIMEN Performed By: #### [place] FP, 25425-1 ####[facility]ORYCLIA [id number] [address] AST With P-5'-P [Catalytic activity/Vol] 25 U/L Normal 14-40 [facility] Comment on above: Order Comment: Speci men Type: BLOOD SPECIMEN Performed By: #### [place], [address]-8 ####[facility]ORYCLIA [id number] [address] Bilirubin [Mass/Vol] 0.2 mg/dL Normal 0.2-1.3 [facility] Comment on above: Order Comment: Speci men Type: BLOOD SPECIMEN Performed By: #### [place], [address]-3 ####[facility]ORYCLIA [id number] [address] Bilirubin.conjugated [Mass/Vol] mg/dL Normal <0.2 [facility] Comment on above: Order Comment: Speci men Type: BLOOD SPECIMEN Performed By: #### [place] FP, ####[facility]ORYCLIA [id number] [address] Protein [Mass/Vol] 5.8 g/dL Low 6.3-8.0 [facility] Comment on above: Order Comment: Speci men Type: BLOOD SPECIMEN Performed By: #### [place] FP, ####[facility]ORYCLIA [id number] [address] MRI BRAIN WO/W IVCONon 06-02 MRI BRAIN WO/W IVCON Normal [facility] Magnesium SerPl-mCncon 06-02 Magnesium [Mass/Vol] 2.0 mg/dL Normal 1.7-2.3 [facility] Comment on above: Order Comment: Speci men Type: BLOOD SPECIMEN Performed By: #### 2 4321-2, 47384-6, 2777-1 ####[facility]CLIA [id number] [address] NT-proBNP SerPl-mCncon 06-02 Natriuretic peptide.B prohormone N-Terminal [Mass/Vol] 296 pg/mL High <125 [facility] Comment on above: Order Comment: Speci men Type: BLOOD SPECIMEN Performed By: #### [place], [address]-1 ####[facility]ORYCLIA [id number] [address] [place] POTASSIUM BLDon 06-02-2021 Potassium [Moles/Vol] 3.2 mmol/L Low 3.7-5.1 [facility] Comment on above: Order Comment: Speci men Type: BLOOD SPECIMEN Performed By: #### K 1 ####[facility]ORYCLIA [id number] [address] [place] Phosphate SerPl-mCncon 06-02 Phosphate [Mass/Vol] 2.1 mg/dL Low 2.7-4.8 [facility] Comment on above: Order Comment: Speci men Type: BLOOD SPECIMEN Performed By: #### 2 4321-2, 14789-3, 2777-1 ####[facility]ORYCLIA [id number] [address] [place] Vancomycin random [Mass/Vol] on 06-02-2021 Vancomycin [Mass/Vol] 18.8 ug/mL Normal 10.0-20.0 [facility] Comment on above: Order Comment: Speci men Type: BLOOD SPECIMEN Result Comment: Refe rence ranges and high/low indicator flags are provided as general guidelines only. The treating physician must determine appropriate target levels/dosing based on the specific clinical situation. Performed By: #### 4 091-5 ####[facility]ORYCLIA [id number] [address] [place] ALLIED HEALTHon 06-01-2021 ALLIED HEALTH Normal [facility] ALLIED HEALTH Normal [facility] ALLIED HEALTH Normal [facility] ARTERIAL BLOOD GASESon 06-01 Base excess Calc (Bld) [Moles/Vol] 1 mmol/L Normal 0-2 [facility] Comment on above: Order Comment: Speci men Type: ARTERIAL BLOOD SPECIMEN Performed By: #### A LLBG ####[facility]ORYCLIA [id number] [address] [place] Body temperature 97.52 [degF] Normal [facility] Comment on above: Order Comment: Speci men Type: ARTERIAL BLOOD SPECIMEN Performed By: #### A LLBG ####[facility]ORYCLIA [id number] [address] CALCIUM IONIZED, PH CORRECTED 1.13 mmol/L Normal 1.08-1.30 [facility] Comment on above: Order Comment: Speci men Type: ARTERIAL BLOOD SPECIMEN Performed By: #### A LLBG ####[facility]ORYCLIA [id number] [address] Calcium.ionized (BldV) [Mass/Vol] 1.12 mmol/L Normal 1.08-1.30 [facility] Comment on above: Order Comment: Speci men Type: ARTERIAL BLOOD SPECIMEN Performed By: #### A LLBG ####[facility]ORYCLIA [id number] [address] Carboxyhemoglobin (BldA) [Mass fraction] 1.6 % Normal 0.0-2.0 [facility] Comment on above: Order Comment: Speci men Type: ARTERIAL BLOOD SPECIMEN Result Comment: Carb oxyhemoglobin Reference Range for Smokers: 2.0-8.0% Performed By: #### A LLBG ####[facility]ORYCLIA [id number] [address] CO2 (Bld) [Partial pressure] 41 mm Hg Normal 36-46 [facility] Comment on above: Order Comment: Speci men Type: ARTERIAL BLOOD SPECIMEN Performed By: #### A LLBG ####[facility]ORYCLIA [id number] [address] CO2 [Moles/Vol] 23.0 mmol/L Normal 22-28 [facility] Comment on above: Order Comment: Speci men Type: ARTERIAL BLOOD SPECIMEN Performed By: #### A LLBG ####[facility]ORYCLIA [id number] [address] CO2 adjusted to patient's actual temperature (Bld) [Partial pressure] 40 mmHg Normal 36-46 [facility] Comment on above: Order Comment: Speci men Type: ARTERIAL BLOOD SPECIMEN Performed By: #### A LLBG ####[facility]ORYCLIA [id number] [address] FIO2 40 % Normal [facility] Comment on above: Order Comment: Speci men Type: ARTERIAL BLOOD SPECIMEN Performed By: #### A LLBG ####[facility]ORYCLIA [id number] [address] Glucose [Mass/Vol] 127 mg/dL High 60-105 [facility] Comment on above: Order Comment: Speci men Type: ARTERIAL BLOOD SPECIMEN Performed By: #### A LLBG ####[facility]CLIA [id number] [address] HCO3 (Bld) [Moles/Vol] 25 mmol/L Normal 22-26 [facility] Comment on above: Order Comment: Speci men Type: ARTERIAL BLOOD SPECIMEN Performed By: #### A LLBG ####[facility]ORYCLIA [id number] [address] [place] Hematocrit (Bld) [Volume fraction] 33.7 % Low 39.0-51.0 [facility] Comment on above: Order Comment: Speci men Type: ARTERIAL BLOOD SPECIMEN Performed By: #### A LLBG ####[facility]ORYCLIA [id number] [address] [place] Hemoglobin (Bld) [Mass/Vol] 10.9 g/dL Low 13.0-17.0 [facility] Comment on above: Order Comment: Speci men Type: ARTERIAL BLOOD SPECIMEN Performed By: #### A LLBG ####[facility]CLIA [id number] [address] INHALED TIDAL VOLUME (ML) 500 Normal [facility] Comment on above: Order Comment: Speci men Type: ARTERIAL BLOOD SPECIMEN Performed By: #### A LLBG ####[facility]CLIA [id number] [address] INVASIVE VENTILATOR MODE PRVC=Pressure Regulated Volume Control Normal [facility] Comment on above: Order Comment: Speci men Type: ARTERIAL BLOOD SPECIMEN Performed By: #### A LLBG ####[facility]ORYCLIA [id number] [address] Methemoglobin (Bld) [Mass fraction] % Normal 0.0-1.5 [facility] Comment on above: Order Comment: Speci men Type: ARTERIAL BLOOD SPECIMEN Performed By: #### A LLBG ####[facility]CLIA [id number] [address] O2 THERAPY Ventilator Normal [facility] Comment on above: Order Comment: Speci men Type: ARTERIAL BLOOD SPECIMEN Performed By: #### A LLBG ####[facility]ORYCLIA [id number] [address] Oxygen (Bld) [Partial pressure] 64 mm Hg Low 85-95 [facility] Comment on above: Order Comment: Speci men Type: ARTERIAL BLOOD SPECIMEN Performed By: #### A LLBG ####[facility]CLIA [id number] [address] Oxygen adjusted to patient's actual temperature (Bld) [Partial pressure] 61.8 mmHg Low 85-95 [facility] Comment on above: Order Comment: Speci men Type: ARTERIAL BLOOD SPECIMEN Performed By: #### A LLBG ####[facility]CLIA [id number] [address] OXYGEN SATURATION, ARTERIAL 94 % Low 95-98 [facility] Comment on above: Order Comment: Speci men Type: ARTERIAL BLOOD SPECIMEN Performed By: #### A LLBG ####[facility]IA [id number] [address] Oxyhemoglobin (BldA) [Mass fraction] 92 % Low 95-98 [facility] Comment on above: Order Comment: Speci men Type: ARTERIAL BLOOD SPECIMEN Performed By: #### A LLBG ####[facility]CLIA [id number] [address] PEEP/CPAP 5 cmH2O Normal [facility] Comment on above: Order Comment: Speci men Type: ARTERIAL BLOOD SPECIMEN Performed By: #### A LLBG ####[facility]CLIA [id number] [address] [place] pH (Bld) 7.40 [pH] Normal 7.35-7.45 [facility] Comment on above: Order Comment: Speci men Type: ARTERIAL BLOOD SPECIMEN Performed By: #### A LLBG ####[facility]CLIA [id number] [address] pH adjusted to patient's actual temperature (Bld) 7.41 Normal 7.35-7.45 [facility] Comment on above: Order Comment: Speci men Type: ARTERIAL BLOOD SPECIMEN Performed By: #### A LLBG ####[facility]CL[facility] [id number] [address] Potassium [Moles/Vol] 3.1 mmol/L Low 3.5-5.0 [facility] Comment on above: Order Comment: Speci men Type: ARTERIAL BLOOD SPECIMEN Performed By: #### A LLBG ####[facility]ORYCLIA [id number] [address] SET VENTILATOR RESPIRATORY RATE (BPM) 18 BPM Normal [facility] Comment on above: Order Comment: Speci men Type: ARTERIAL BLOOD SPECIMEN Performed By: #### A LLBG ####[facility]ORYCLIA [id number] [address] [place] Sodium [Moles/Vol] 141 mmol/L Normal 136-144 [facility] Comment on above: Order Comment: Speci men Type: ARTERIAL BLOOD SPECIMEN Performed By: #### A LLBG ####[facility]ORYCLIA [id number] [address] [place] BASE DEFICIT, ARTERIAL -1.0 mmol/L Normal -2-0 [facility] Comment on above: Order Comment: Speci men Type: ARTERIAL BLOOD SPECIMEN Performed By: #### A LLBG ####[facility]ORYCLIA [id number] [address] Body temperature 98.24 [degF] Normal [facility] Comment on above: Order Comment: Speci men Type: ARTERIAL BLOOD SPECIMEN Performed By: #### A LLBG ####[facility]ORYCLIA [id number] [address] CALCIUM IONIZED, PH CORRECTED 1.08 mmol/L Normal 1.08-1.30 [facility] Comment on above: Order Comment: Speci men Type: ARTERIAL BLOOD SPECIMEN Performed By: #### A LLBG ####[facility]ORYCLIA [id number] [address] Calcium.ionized (BldV) [Mass/Vol] 1.15 mmol/L Normal 1.08-1.30 [facility] Comment on above: Order Comment: Speci men Type: ARTERIAL BLOOD SPECIMEN Performed By: #### A LLBG ####[facility]ORYCLIA [id number] [address] Carboxyhemoglobin (BldA) [Mass fraction] 1.4 % Normal 0.0-2.0 [facility] Comment on above: Order Comment: Speci men Type: ARTERIAL BLOOD SPECIMEN Result Comment: Carb oxyhemoglobin Reference Range for Smokers: 2.0-8.0% Performed By: #### A LLBG ####[facility]ORYCLIA [id number] [address] CO2 (Bld) [Partial pressure] 59 mm Hg High 36-46 [facility] Comment on above: Order Comment: Speci men Type: ARTERIAL BLOOD SPECIMEN Performed By: #### A LLBG ####[facility]ORYCLIA [id number] [address] OF [facility] CO2 [Moles/Vol] 24.5 mmol/L Normal 22-28 [facility] Comment on above: Order Comment: Speci men Type: ARTERIAL BLOOD SPECIMEN Performed By: #### A LLBG ####[facility]CL[facility] [id number] [address] CO2 adjusted to patient's actual temperature (Bld) [Partial pressure] 58 mmHg High 36-46 [facility] Comment on above: Order Comment: Speci men Type: ARTERIAL BLOOD SPECIMEN Performed By: #### A LLBG ####[facility] [id number] [address] FIO2 40 % Normal [facility] Comment on above: Order Comment: Speci men Type: ARTERIAL BLOOD SPECIMEN Performed By: #### A LLBG ####[facility] [id number] [address] Glucose [Mass/Vol] 128 mg/dL High 60-105 [facility] Comment on above: Order Comment: Speci men Type: ARTERIAL BLOOD SPECIMEN Performed By: #### A LLBG ####[facility]CL[facility] [id number] [address] HCO3 (Bld) [Moles/Vol] 26 mmol/L Normal 22-26 [facility] Comment on above: Order Comment: Speci men Type: ARTERIAL BLOOD SPECIMEN Performed By: #### A LLBG ####[facility] [id number] [address] Hematocrit (Bld) [Volume fraction] 35.6 % Low 39.0-51.0 [facility] Comment on above: Order Comment: Speci men Type: ARTERIAL BLOOD SPECIMEN Performed By: #### A LLBG ####[facility] [id number] [address] Hemoglobin (Bld) [Mass/Vol] 11.5 g/dL Low 13.0-17.0 [facility] Comment on above: Order Comment: Speci men Type: ARTERIAL BLOOD SPECIMEN Performed By: #### A LLBG ####[facility]IA [id number] [address] INHALED TIDAL VOLUME (ML) 500 Normal [facility] Comment on above: Order Comment: Speci men Type: ARTERIAL BLOOD SPECIMEN Performed By: #### A LLBG ####[facility]CLIA [id number] [address] INVASIVE VENTILATOR MODE PRVC=Pressure Regulated Volume Control Normal [facility] Comment on above: Order Comment: Speci men Type: ARTERIAL BLOOD SPECIMEN Performed By: #### A LLBG ####[facility]CLIA [id number] [address] Methemoglobin (Bld) [Mass fraction] % Normal 0.0-1.5 [facility] Comment on above: Order Comment: Speci men Type: ARTERIAL BLOOD SPECIMEN Performed By: #### A LLBG ####[facility] [id number] [address] O2 THERAPY Ventilator Normal [facility] Comment on above: Order Comment: Speci men Type: ARTERIAL BLOOD SPECIMEN Performed By: #### A LLBG ####[facility] [id number] [address] OF [facility] Oxygen (Bld) [Partial pressure] 88 mm Hg Normal 85-95 [facility] Comment on above: Order Comment: Speci men Type: ARTERIAL BLOOD SPECIMEN Performed By: #### A LLBG ####[facility] [id number] [address] OF [facility] Oxygen adjusted to patient's actual temperature (Bld) [Partial pressure] 86.5 mmHg Normal 85-95 [facility] Comment on above: Order Comment: Speci men Type: ARTERIAL BLOOD SPECIMEN Performed By: #### A LLBG ####[facility]ORYCLIA [id number] [address] OF [place] OXYGEN SATURATION, ARTERIAL 95 % Normal 95-98 [facility] Comment on above: Order Comment: Speci men Type: ARTERIAL BLOOD SPECIMEN Performed By: #### A LLBG ####[facility]ATORYCLIA [id number] [address] Oxyhemoglobin (BldA) [Mass fraction] 93 % Low 95-98 [facility] Comment on above: Order Comment: Speci men Type: ARTERIAL BLOOD SPECIMEN Performed By: #### A LLBG ####[facility]ORYCLIA [id number] [address] PEEP/CPAP 5 cmH2O Normal [facility] Comment on above: Order Comment: Speci men Type: ARTERIAL BLOOD SPECIMEN Performed By: #### A LLBG ####[facility]ORYCLIA [id number] [address] pH (Bld) 7.27 [pH] Low 7.35-7.45 [facility] Comment on above: Order Comment: Speci men Type: ARTERIAL BLOOD SPECIMEN Performed By: #### A LLBG ####[facility]ORATORYCLIA [id number] [address] pH adjusted to patient's actual temperature (Bld) 7.28 Low 7.35-7.45 [facility] Comment on above: Order Comment: Speci men Type: ARTERIAL BLOOD SPECIMEN Performed By: #### A LLBG ####[facility]ORATORYCLIA [id number] [address] OF [facility] Potassium [Moles/Vol] 3.3 mmol/L Low 3.5-5.0 [facility] Comment on above: Order Comment: Speci men Type: ARTERIAL BLOOD SPECIMEN Performed By: #### A LLBG ####[facility]ORYCLIA [id number] [address] SET VENTILATOR RESPIRATORY RATE (BPM) 14 BPM Normal [facility] Comment on above: Order Comment: Speci men Type: ARTERIAL BLOOD SPECIMEN Performed By: #### A LLBG ####[facility]ORYCLIA [id number] [address] [place] Sodium [Moles/Vol] 141 mmol/L Normal 136-144 [facility] Comment on above: Order Comment: Speci men Type: ARTERIAL BLOOD SPECIMEN Performed By: #### A LLBG ####[facility]ATORYCLIA [id number] [address] Bacteria CSF Culton 06-01-19 Bacteria identified Cx Nom (CSF) CULTURE, CSF: No growth 14 days GRAM STAIN: No organisms seen Rare Polymorphonuclear leukocytes Moderate Red Blood Cells Gram stain performed on cytospun specimen. Normal [facility] Comment on above: Performed By: #### 6 06-4 ####[facility]ATORYCLIA [id number] [address] Bacteria Spec Resp Culton Bacteria identified Respiratory culture Nom (Unsp spec) CULTURE, RESPIRATORY: No growth 2 days GRAM STAIN: No organisms seen No Polymorphonuclear Leukocytes Normal [facility] Comment on above: Performed By: #### 3 2355-0 ####[facility]ORATORYCLIA [id number] [address] OF [facility] Basic metabolic 2000 panelon 06-01-2021 Anion gap [Moles/Vol] 8 mmol/L Low 9-18 [facility] Comment on above: Order Comment: Speci men Type: BLOOD SPECIMEN Performed By: #### 2 4321-2, , 2776-05 ####[facility]ORATORYCLIA [id number] [address] STATES OF [facility] Calcium [Mass/Vol] 7.8 mg/dL Low 8.5-10.2 [facility] Comment on above: Order Comment: Speci men Type: BLOOD SPECIMEN Performed By: #### 2 4321-2, , 2776-05 ####[facility]ATORYCLIA [id number] [address] OF [facility] Chloride [Moles/Vol] 109 mmol/L High 97-105 [facility] Comment on above: Order Comment: Speci men Type: BLOOD SPECIMEN Performed By: #### 2 4321-2, , 2776-05 ####[facility]ORYCLIA [id number] [place] [address] [place] [facility] CO2 [Moles/Vol] 26 mmol/L Normal 22-30 [facility] Comment on above: Order Comment: Speci men Type: BLOOD SPECIMEN Performed By: #### 2 4321-2, , 2776-05 ####[facility]ORATORYCLIA [id number] [place] [id number] [place] Creatinine [Mass/Vol] 0.82 mg/dL Normal 0.73-1.22 [facility] Comment on above: Order Comment: Speci men Type: BLOOD SPECIMEN Performed By: #### 2 4321-2, , 2776-05 ####[facility]ATORYCLIA [id number] [address] STATES OF [place] GFR/1.73 sq M.predicted MDRD (S/P/Bld) [Vol rate/Area] mL/min/{1.73_m2} Normal [facility] Comment on above: Order Comment: [...] Performed By: #### 2 4321-2, , 2776-05 ####[facility]ORATORYCLIA [id number] [place] [id number] [place] Glucose [Mass/Vol] 105 mg/dL High 74-99 [facility] Comment on above: Order Comment: Speci men Type: BLOOD SPECIMEN Result Comment: The [place] Diabetes [employer] (ADA) provides guidance for cutoff [...] Standards of Medical Care in Diabetes 2016, [place] [employer]. Diabetes Care. 2016.39(Suppl 1). Performed By: #### 2 4321-2, , 2776-05 ####[facility]ORATORYCLIA [id number] [address] STATES OF [facility] Potassium [Moles/Vol] 3.8 mmol/L Normal 3.7-5.1 [facility] Comment on above: Order Comment: Speci men Type: BLOOD SPECIMEN Performed By: #### 2 1-2, , 2776-05 ####[facility]ORATORYCLIA [id number] [address] STATES OF [facility] Sodium [Moles/Vol] 143 mmol/L Normal 136-144 [facility] Comment on above: Order Comment: Speci men Type: BLOOD SPECIMEN Performed By: #### 2 1-2, , 2776-05 ####[facility]ORATORYCLIA [id number] [address] STATES [facility] Urea nitrogen [Mass/Vol] 15 mg/dL Normal 9-24 [facility] Comment on above: Order Comment: Speci men Type: BLOOD SPECIMEN Performed By: #### 2 4321-2, , 2776-05 ####[facility]ORATORYCLIA [id number] [address] OF [facility] CBC panel Auto (Bld)on 06-01 Erythrocyte distribution width (RBC) [Ratio] 15.4 % High 11.5-15.0 [facility] Comment on above: Order Comment: Speci men Type: BLOOD SPECIMEN Performed By: #### 5 8410-2 ####[facility]ATORYCLIA [id number] [address] Hematocrit (Bld) [Volume fraction] 38.4 % Low 39.0-51.0 [facility] Comment on above: Order Comment: Speci men Type: BLOOD SPECIMEN Performed By: #### 5 8410-2 ####[facility]ORATORYCLIA [id number] [address] Hemoglobin (Bld) [Mass/Vol] 11.1 g/dL Low 13.0-17.0 [facility] Comment on above: Order Comment: Speci men Type: BLOOD SPECIMEN Performed By: #### 5 8410-2 ####[facility]ORATORYCLIA [id number] [address] MCH (RBC) [Entitic mass] 26.9 pg Normal 26.0-34.0 [facility] Comment on above: Order Comment: Speci men Type: BLOOD SPECIMEN Performed By: #### 5 8410-2 ####[facility]ORATORYCLIA [id number] [address] MCHC (RBC) [Mass/Vol] 28.9 g/dL Low 30.5-36.0 [facility] Comment on above: Order Comment: Speci men Type: BLOOD SPECIMEN Performed By: #### 5 8410-2 ####[facility]ORATORYCLIA [id number] [address] MCV (RBC) [Entitic vol] 93.2 fL Normal 80.0-100.0 [facility] Comment on above: Order Comment: Speci men Type: BLOOD SPECIMEN Performed By: #### 5 8410-2 ####[facility]ORATORYCLIA [id number] [address] Nucleated RBC (Bld) [#/Vol] 10*3/uL Normal <0.01 [facility] Comment on above: Order Comment: Speci men Type: BLOOD SPECIMEN Performed By: #### 5 8410-2 ####[facility]ORATORYCLIA [id number] [address] Platelet mean volume (Bld) [Entitic vol] 10.2 fL Normal 9.0-12.7 [facility] Comment on above: Order Comment: Speci men Type: BLOOD SPECIMEN Performed By: #### 5 8410-2 ####[facility]ORATORYCLIA [id number] [address] OF [facility] Platelets (Bld) [#/Vol] 231 10*3/uL Normal 150-400 [facility] Comment on above: Order Comment: Speci men Type: BLOOD SPECIMEN Performed By: #### 5 8410-2 ####[facility]ATORYCLIA [id number] [address] RBC (Bld) [#/Vol] 4.12 10*6/uL Low 4.20-6.00 [facility] Comment on above: Order Comment: Speci men Type: BLOOD SPECIMEN Performed By: #### 5 8410-2 ####[facility]ORATORYCLIA [id number] [address] OF [facility] WBC (Bld) [#/Vol] 10.99 10*3/uL Normal 3.70-11.00 [facility] Comment on above: Order Comment: Speci men Type: BLOOD SPECIMEN Performed By: #### 5 8410-2 ####[facility]ORATORYCLIA [id number] [address] CONSULT PROGon 06-01-2021 CONSULT PROG Normal [facility] CSF MANUAL DIFFon 06-01-2021 DIF TTL, CSF 100 cells counted Normal [facility] Comment on above: Order Comment: Speci men Type: CEREBROSPINAL FLUID Performed By: #### 3 4563-7, [id number] ####[facility]ORATORYCLIA [id number] [address] OF [facility] LYMPH%, CSF 11 % Low 50-90 [facility] Comment on above: Order Comment: Speci men Type: CEREBROSPINAL FLUID Performed By: #### 3 4563-7, [id number] ####[facility]ATORYCLIA [id number] [address] MONO%, CSF 10 % Normal 10-50 [facility] Comment on above: Order Comment: Speci men Type: CEREBROSPINAL FLUID Performed By: #### 3 4563-7, [id number] ####[facility]ATORYCLIA [id number] [address] NEUT%, CSF 79 % High 0-3 [facility] Comment on above: Order Comment: Speci men Type: CEREBROSPINAL FLUID Performed By: #### 3 4563-7, [id number] ####[facility]ORYCLIA [id number] [address] BRAIN WO IVCONon 06-01-19 CT BRAIN WO IVCON Normal [facility] Cell count panel (CSF)on Clarity (CSF) Clear Normal Clear [facility] Comment on above: Order Comment: Speci men Type: CEREBROSPINAL FLUID Performed By: #### 3 4563-7, [id number] ####[facility]ORYCLIA [id number] [address] Clarity (Unsp spec) Not Indicated Normal Clear [facility] Comment on above: Order Comment: Speci men Type: CEREBROSPINAL FLUID Performed By: #### 3 4563-7, [id number] ####[facility]ORYCLIA [id number] [address] Color (CSF) Colorless Normal Colorless [facility] Comment on above: Order Comment: Speci men Type: CEREBROSPINAL FLUID Performed By: #### 3 4563-7, [id number] ####[facility]ORYCLIA [id number] [address] Color (Spun CSF) Not Indicated Normal Colorless [facility] Comment on above: Order Comment: Speci men Type: CEREBROSPINAL FLUID Performed By: #### 3 4563-7, [id number] ####[facility]ORYCLIA [id number] [address] CSF TUBE NUMBER Sterile Container Normal [facility] Comment on above: Order Comment: Speci men Type: CEREBROSPINAL FLUID Performed By: #### 3 4563-7, [id number] ####[facility]ATORYCLIA [id number] [address] RBC Manual cnt (CSF) [#/Vol] 171 cells/uL High 0-5 [facility] Comment on above: Order Comment: Speci men Type: CEREBROSPINAL FLUID Performed By: #### 3 4563-7, [id number] ####[facility]ATORYCLIA [id number] [address] WBC Manual cnt (CSF) [#/Vol] 5 cells/uL Normal 0-5 [facility] Comment on above: Order Comment: Speci men Type: CEREBROSPINAL FLUID Performed By: #### 3 4563-7, [id number] ####[facility]ATORYCLIA [id number] [address] FUNGAL CULTUREon 06-01-2021 FUNGAL CULTURE CULTURE, FUNGAL: No Fungus isolated after [address] [facility] Comment on above: Performed By: #### F CUL ####[facility]ATORYCLIA [id number] [address] Glucose CSF-mCncon 2 Glucose (CSF) [Mass/Vol] 78 mg/dL High 40-70 [facility] Comment on above: Order Comment: Speci men Type: CEREBROSPINAL FLUID Result Comment: Lumb ar CSF glucose values of healthy patients are approximately 60% of the plasma values and must always be compared with a concurrently measured plasma value for adequate clinical interpretation.References: 1. Glucose HK (GLUC3) [package insert V 12.0 [place]an]. [employer], [place], [place]. September 2015. 2. Michelle Moore, Loki H. (2015). Chapter 7: Glucose and Lactate. F. Irina rose al.(eds.), Cerebrospinal Fluid in Clinical Neurology. Stewart: [place]. Performed By: #### 2 342-4, 2880-3 ####[facility] SERVICESCLIA [id number] [address] [place] HERPES SIMPLEX CSFon 022 HERPES SIMPLEX CSF HSV PCR SPEC SOURCE: Cerebrospinal Fluid HSV-1: Negative for Herpes Simplex Virus Type 1 by PCR HSV-2: Negative for Herpes Simplex Virus Type 2 by PCR Normal [facility] Comment on above: Performed By: #### H [facility] ####[facility] LABCLIA [id number] [place] [address] [id number] [address] [place] Lactate (Bld) [Moles/Vol]on 06-01-2021 Lactate [Moles/Vol] 0.5 mmol/L Normal 0.5-2.2 [facility] Comment on above: Order Comment: Speci men Type: BLOOD SPECIMEN Performed By: #### 3 2693-4 ####[facility]ORATORYCLIA [id number] [address] MENINGITIS ENCEPHALITIS BIOF IREon 06-01-2021 MENINGITIS ENCEPHALITIS BIOFIRE Negative Normal [facility] Comment on above: Order Comment: Speci men Type: CEREBROSPINAL FLUID Performed By: #### M GEBF ####[facility] [id number] [address] Magnesium SerPl-mCncon 06-01 Magnesium [Mass/Vol] 2.2 mg/dL Normal 1.7-2.3 [facility] Comment on above: Order Comment: Speci men Type: BLOOD SPECIMEN Performed By: #### 2 4321-2, 70331-7, 2777-1 ####[facility]ORATORYCLIA [id number] [address] [place] Microorganism Spec Culton Microorganism identified Cx Nom (Unsp spec) CULTURE, AFB: No Acid Fast Bacilli isolated after 42 days AFB STAIN: No acid fast bacilli seen by flurochrome stain Normal [facility] Comment on above: Performed By: #### 1 1475-1 ####[facility] SERVICESCLIA [id number] [address] PROCALCITONIN (LAB)on 2021 Procalcitonin [Mass/Vol] 0.08 ng/mL Normal <0.09 [facility] Comment on above: Order Comment: Speci men Type: BLOOD SPECIMEN Result Comment: For a guided interpretation of test results, please visit the [facility] in Procalcitonin Calculator, [email or web address]. Performed By: #### P ROCAL ####[facility]ORATORYCLIA [id number] [address] OF [facility] Phosphate SerPl-ncon 06-01 Phosphate [Mass/Vol] 3.5 mg/dL Normal 2.7-4.8 [facility] Comment on above: Order Comment: Speci men Type: BLOOD SPECIMEN Performed By: #### 2 4321-2, 54301-9, 2777-1 ####[facility]ORATORYCLIA [id number] [address] OF [facility] Prot CSF-ncon 06-01-2021 Protein (CSF) [Mass/Vol] 52 mg/dL High 15-45 [facility] Comment on above: Order Comment: Speci men Type: CEREBROSPINAL FLUID Performed By: #### 2 342-4, 2880-3 ####[facility]ATORYCLIA [id number] [address] Vancomycin random [Mass/Vol] on 06-01-2021 Vancomycin [Mass/Vol] 14.6 ug/mL Normal 10.0-20.0 [facility] Comment on above: Order Comment: Speci men Type: BLOOD SPECIMEN Result Comment: Refe rence ranges and high/low indicator flags are provided as general guidelines only. The treating physician must determine appropriate target levels/dosing based on the specific clinical situation. Performed By: #### 4 091-5 ####[facility]ORATORYCLIA [id number] [address] OF [facility] XR CHEST 1V FRONTALon 2021 XR CHEST 1V FRONTAL Normal [facility] XR CHEST 1V FRONTAL Normal [facility] XR NECK SOFT TISSUE 2V AP/LA Ton 06-01-2021 XR NECK SOFT TISSUE 2V AP/LAT Normal [facility] XR SKULL 2V AP/LATon 022 XR SKULL 2V AP/LAT Normal [facility] ALLIED HEALTHon 05-31-2021 ALLIED HEALTH HNO ID: [id number] Author: Christina Lynne, RT(R) Service: Radiology Author Type: Technologist Type: Allied Health Filed: 05/31/2021 5:48 PM Note Text: MRI tomorrow per RN. Normal [facility] ALLIED HEALTH Normal [facility] ALLIED HEALTH Normal [facility] ALLIED HEALTH Normal [facility] ANES POSTPROC EVALon 022 ANES POSTPROC EVAL Normal [facility] ANES PRE-OPon 05-31-2021 ANES PRE-OP Normal [facility] BRIEF OP NOTon 05-31-2021 BRIEF OP NOT Normal [facility] Bacteria Bld Culton 05-31-19 22 Bacteria identified Cx Nom (Bld) CULTURE, BLOOD: No growth 5 days Normal [facility] Comment on above: Performed By: #### 6 00-7 ####[facility]ATORYCLIA [id number] [address] [place] Bacteria CSF Culton 05-31-19 22 Bacteria identified Cx Nom (CSF) CULTURE, CSF: No growth 14 days GRAM STAIN: No organisms seen Rare Polymorphonuclear leukocytes Rare Red Blood Cells Gram stain performed on cytospun specimen. Normal [facility] Comment on above: Performed By: #### 6 06-4 ####[facility]ORATORYCLIA [id number] [place] [address] [place] Basic metabolic 2000 panelon 05-31-2021 Anion gap [Moles/Vol] 9 mmol/L Normal 9-18 [facility] Comment on above: Order Comment: Speci men Type: BLOOD SPECIMEN Performed By: #### 2 777-1, 79171-7, 02545-0 ####[facility]ORATORYCLIA [id number] [address] STATES OF [facility] Calcium [Mass/Vol] 8.2 mg/dL Low 8.5-10.2 [facility] Comment on above: Order Comment: Speci men Type: BLOOD SPECIMEN Performed By: #### 2 777-1, 15113-6, ####[facility]ATORYCLIA [id number] [address] [place] Chloride [Moles/Vol] 110 mmol/L High 97-105 [facility] Comment on above: Order Comment: Speci men Type: BLOOD SPECIMEN Performed By: #### 2 777-1, 75346-7, ####[facility]ATORYCLIA [id number] [address] OF [facility] CO2 [Moles/Vol] 27 mmol/L Normal 22-30 [facility] Comment on above: Order Comment: Speci men Type: BLOOD SPECIMEN Performed By: #### 2 777-1, 21443-4, ####[facility]ATORYCLIA [id number] [address] [place] Creatinine [Mass/Vol] 0.85 mg/dL Normal 0.73-1.22 [facility] Comment on above: Order Comment: Speci men Type: BLOOD SPECIMEN Performed By: #### 2 777-1, , ####[facility]ORATORYCLIA [id number] [address] [place] GFR/1.73 sq M.predicted MDRD (S/P/Bld) [Vol rate/Area] mL/min/{1.73_m2} Normal [facility] Comment on above: Order Comment: [...] actual GFR. Performed By: #### 2 777-1, 16773-3, ####[facility]ORATORYCLIA [id number] [place] [address] [place] Glucose [Mass/Vol] 111 mg/dL High 74-99 [facility] Comment on above: Order Comment: Speci men Type: BLOOD SPECIMEN Result Comment: The [place] [employer] (ADA) provides guidance for cutoff [...] Standards of Medical Care in Diabetes 2016, [place] [employer]. Diabetes Care. 2016.39(Suppl 1). Performed By: #### 2 777-1, , ####[facility]ORATORYCLIA [id number] [place] [address] [place] Potassium [Moles/Vol] 3.7 mmol/L Normal 3.7-5.1 [facility] Comment on above: Order Comment: Speci men Type: BLOOD SPECIMEN Performed By: #### 2 777-1, 60627-2, ####[facility]ORATORYCLIA [id number] [place] [address] [place] Sodium [Moles/Vol] 146 mmol/L High 136-144 [facility] Comment on above: Order Comment: Speci men Type: BLOOD SPECIMEN Performed By: #### 2 777-1, , ####[facility]ATORYCLIA [id number] [address] Urea nitrogen [Mass/Vol] 16 mg/dL Normal 9-24 [facility] Comment on above: Order Comment: Speci men Type: BLOOD SPECIMEN Performed By: #### 2 777-1, 82323-3, 01205-8 ####[facility]ORATORYCLIA [id number] [address] OF [facility] CASE MGT INIT ASSESon 2021 CASE MGT INIT ASSES Normal [facility] CBC W Auto Differential pane l (Bld)on 05-31-2021 Basophils (Bld) [#/Vol] 0.04 10*3/uL Normal <0.11 [facility] Comment on above: Order Comment: Speci men Type: BLOOD SPECIMEN Performed By: #### 5 7021-8 ####[facility]ATORYCLIA [id number] [address] Basophils/100 WBC (Bld) 0.5 % Normal [facility] Comment on above: Order Comment: Speci men Type: BLOOD SPECIMEN Performed By: #### 5 7021-8 ####[facility]ATORYCLIA [id number] [address] Differential cell count method Nom (Bld) Auto Normal [facility] Comment on above: Order Comment: Speci men Type: BLOOD SPECIMEN Performed By: #### 5 7021-8 ####[facility]ORYCLIA [id number] [address] [place] Eosinophils (Bld) [#/Vol] 0.27 10*3/uL Normal <0.46 [facility] Comment on above: Order Comment: Speci men Type: BLOOD SPECIMEN Performed By: #### 5 7021-8 ####[facility]ATORYCLIA [id number] [address] [place] Eosinophils/100 WBC (Bld) 3.3 % Normal [facility] Comment on above: Order Comment: Speci men Type: BLOOD SPECIMEN Performed By: #### 5 7021-8 ####[facility]ATORYCLIA [id number] [address] Erythrocyte distribution width (RBC) [Ratio] 15.4 % High 11.5-15.0 [facility] Comment on above: Order Comment: Speci men Type: BLOOD SPECIMEN Performed By: #### 5 7021-8 ####[facility] LABORATORYCLIA [id number] [address] Hematocrit (Bld) [Volume fraction] 37.9 % Low 39.0-51.0 [facility] Comment on above: Order Comment: Speci men Type: BLOOD SPECIMEN Performed By: #### 5 7021-8 ####[facility] LABORATORYCLIA [id number] [address] Hemoglobin (Bld) [Mass/Vol] 11.5 g/dL Low 13.0-17.0 [facility] Comment on above: Order Comment: Speci men Type: BLOOD SPECIMEN Performed By: #### 5 7021-8 ####[facility]ORATORYCLIA [id number] [address] IMMATURE GRAN % 0.4 % Normal [facility] Comment on above: Order Comment: Speci men Type: BLOOD SPECIMEN Performed By: #### 5 7021-8 ####[facility]ATORYCLIA [id number] [address] IMMATURE GRAN ABS 0.03 k/uL Normal <0.10 [facility] Comment on above: Order Comment: Speci men Type: BLOOD SPECIMEN Performed By: #### 5 7021-8 ####[facility]ORYCLIA [id number] [address] Lymphocytes (Bld) [#/Vol] 1.90 10*3/uL Normal 1.00-4.00 [facility] Comment on above: Order Comment: Speci men Type: BLOOD SPECIMEN Performed By: #### 5 7021-8 ####[facility]ATORYCLIA [id number] [address] Lymphocytes/100 WBC (Bld) 23.0 % Normal [facility] Comment on above: Order Comment: Speci men Type: BLOOD SPECIMEN Performed By: #### 5 7021-8 ####[facility]ORATORYCLIA [id number] [address] MCH (RBC) [Entitic mass] 28.0 pg Normal 26.0-34.0 [facility] Comment on above: Order Comment: Speci men Type: BLOOD SPECIMEN Performed By: #### 5 7021-8 ####[facility]ORATORYCLIA [id number] [address] MCHC (RBC) [Mass/Vol] 30.3 g/dL Low 30.5-36.0 [facility] Comment on above: Order Comment: Speci men Type: BLOOD SPECIMEN Performed By: #### 5 7021-8 ####[facility]ATORYCLIA [id number] [address] MCV (RBC) [Entitic vol] 92.4 fL Normal 80.0-100.0 [facility] Comment on above: Order Comment: Speci men Type: BLOOD SPECIMEN Performed By: #### 5 7021-8 ####[facility]ORYCLIA [id number] [address] Monocytes (Bld) [#/Vol] 0.60 10*3/uL Normal <0.87 [facility] Comment on above: Order Comment: Speci men Type: BLOOD SPECIMEN Performed By: #### 5 7021-8 ####[facility] [id number] [address] Monocytes/100 WBC (Bld) 7.3 % Normal [facility] Comment on above: Order Comment: Speci men Type: BLOOD SPECIMEN Performed By: #### 5 7021-8 ####[facility]ORY[facility]IA [id number] [address] [place] Neutrophils (Bld) [#/Vol] 5.41 10*3/uL Normal 1.45-7.50 [facility] Comment on above: Order Comment: Speci men Type: BLOOD SPECIMEN Performed By: #### 5 7021-8 ####[facility]ORYCLIA [id number] [address] Neutrophils/100 WBC (Bld) 65.5 % Normal [facility] Comment on above: Order Comment: Speci men Type: BLOOD SPECIMEN Performed By: #### 5 7021-8 ####[facility]ORYCLIA [id number] [address] Nucleated RBC (Bld) [#/Vol] 10*3/uL Normal <0.01 [facility] Comment on above: Order Comment: Speci men Type: BLOOD SPECIMEN Performed By: #### 5 7021-8 ####[facility]ORYCLIA [id number] [address] Nucleated RBC/100 WBC (Bld) [Ratio] 0.0 /100 WBC Normal 0.0 [facility] Comment on above: Order Comment: Speci men Type: BLOOD SPECIMEN Performed By: #### 5 7021-8 ####[facility]ORYCLIA [id number] [address] Platelet mean volume (Bld) [Entitic vol] 9.8 fL Normal 9.0-12.7 [facility] Comment on above: Order Comment: Speci men Type: BLOOD SPECIMEN Performed By: #### 5 7021-8 ####[facility]ORYCLIA [id number] [address] Platelets (Bld) [#/Vol] 251 10*3/uL Normal 150-400 [facility] Comment on above: Order Comment: Speci men Type: BLOOD SPECIMEN Performed By: #### 5 7021-8 ####[facility]ORYCLIA [id number] [place] [address] [place] RBC (Bld) [#/Vol] 4.10 10*6/uL Low 4.20-6.00 [facility] Comment on above: Order Comment: Speci men Type: BLOOD SPECIMEN Performed By: #### 5 7021-8 ####[facility]ORYCLIA [id number] [address] WBC (Bld) [#/Vol] 8.25 10*3/uL Normal 3.70-11.00 [facility] Comment on above: Order Comment: Speci men Type: BLOOD SPECIMEN Performed By: #### 5 7021-8 ####[facility]ORYCLIA [id number] [address] CONSULTon 05-31-2021 CONSULT Normal [facility] CONSULT Normal [facility] CONSULT Normal [facility] CT BRAIN WO IVCONon 05-31-19 CT BRAIN WO IVCON Normal [facility] CT BRAIN WO IVCON Normal [facility] CT CHEST WO IVCONon 05-31-19 CT CHEST WO IVCON Normal [facility] Cortis SerPl-mCncon 05-31-19 Cortisol [Mass/Vol] 31.0 ug/dL High AM: 5.3-22.5, PM: 3.4-16.8 [facility] Comment on above: Order Comment: Speci men Type: BLOOD SPECIMEN Result Comment: Prov ided reference range is from 6-10 AM sample collection time.Cortisol Reference Range: 6-10 AM = 4.8-19.5 ug/dL, 4-8 PM = 2.5-11.9 ug/dL Performed By: #### 2 143-6, 3016-3 ####[facility]ATORYCLIA [id number] [address] Cryptoc Ag Spec Ql LAon 05-08 Cryptococcus sp Ag LA Ql (Unsp spec) Negative Normal [facility] Comment on above: Performed By: #### 4 3228-6 ####[facility]ORYCLIA [id number] [address] HISTORY PHYSICALon 2 HISTORY PHYSICAL Normal [facility] Magnesium SerPl-mCncon 05-31 Magnesium [Mass/Vol] 2.2 mg/dL Normal 1.7-2.3 [facility] Comment on above: Order Comment: Speci men Type: BLOOD SPECIMEN Performed By: #### 2 777-1, 43839-3, 06879-7 ####[facility]ORYCLIA [id number] [address] OF [facility] NURSING PROGon 05-31-2021 NURSING PROG Normal [facility] NUTRITIONon 05-31-2021 NUTRITION Normal [facility] OPERATIVE NOon 05-31-2021 OPERATIVE NO Normal [facility] Phosphate SerPl-mCncon 05-31 Phosphate [Mass/Vol] 3.3 mg/dL Normal 2.7-4.8 [facility] Comment on above: Order Comment: Speci men Type: BLOOD SPECIMEN Performed By: #### 2 777-1, 52085-9, 20104-3 ####[facility]ATORYCLIA [id number] [address] STAPH AUREUS PCRon 2 S. aureus and MRSA panel MEGAN+probe (Nose) Normal Negative [facility] Comment on above: Order Comment: Speci men Type: SWAB OF INTERNAL NOSE Result Comment: Nega tive for Staphylococcus aureus by PCR.Negative for MRSA by PCR Performed By: #### S APCR ####[facility]ORATORYCLIA [id number] [address] OF [place] TSH SerPl-aCncon 05-31-2021 TSH Qn 0.829 m[IU]/L Normal 0.270-4.200 [facility] Comment on above: Order Comment: Speci men Type: BLOOD SPECIMEN Performed By: #### 2 143-6, 3016-3 ####[facility]ORATORYCLIA [id number] [address] [place] XR CHEST 1V FRONTALon 2021 XR CHEST 1V FRONTAL Normal [facility] XR CHEST 1V FRONTAL Normal [facility] Blood Cultureon 05-30-2021 Bacteria identified Cx Nom (Bld) Culture Result - No growth 5 days Normal [facility] Comment on above: Performed By: #### C AD #### [facility] [address] [place] [address] [facility] [address] [place] [address] Bacteria identified Cx Nom (Bld) Sp. Request/Comment: - 8.2MLS Culture Result - No growth 5 days Normal [facility] Comment on above: Performed By: #### C AD #### [facility] [address] [place] [phone] [facility] [address] [place] [address] C-Reactive Proteinon 022 C-Reactive Protein 1.7 mg/dL High <0.9 [facility] Comment on above: Performed By: #### C RP ####[facility] [address] [place] [phone] CNDSon 05-30-2021 [facility] HNO ID: [id number] Author: Columba Carroll PA-C Service: Hospital Medicine Author Type: Physician Printed Circuit Board Layout Designer Type: Discharge Summary Filed: 05/30/2021 12:49 PM [...] Team: Attending Provider: Ayaka Menjivar MD Physician Printed Circuit Board Layout Designer: Columba Carroll PA-C Consulting: Lilo Mendoza MD [...] consulted. Neurology suggested empiric abx coverage for PUBLIC HOUSING INTERVIEWER infection Rocephin and Vancomycin was started. Tele-neuro also suggested an MRI brain be obtained prior to LP to check BLOW MOLD OPERATOR shunt and decrease risk of herniation in neurosurgery capable facility. Transfer to [facility] requested. Sepsis lactate was 1.3. ABG showed pO2 67.8, placed patient on 2L NC.Follow B1, B12, and RPR pending. Transitions of Care Critical Issues: - patient transferred for [facility] for management of possible PUBLIC HOUSING INTERVIEWER infection and herniation. LABS AND PROCEDURES PENDING [...] q 1 (more content not included)... Normal [facility] CONSULTon 05-30-2021 CONSULT HNO ID: [id number] Author: Juan Carlos Mckenzie MD Service: Infectious [...] vertebrae with counting from the craniocervical junction. Automobile Lights Assembler: PSCB Transcribe Date/Time: May 29 2021 8:59P Dictated by : CARLOS YOUNGER MD This examination was interpreted and the report reviewed and electronically signed by: CARLOS YOUNGER MD on May 29 2021 9:14PM EST ? CT CERVICAL SPINE WO (more content not included)... Normal [facility] CONSULT HNO ID: [id number] Author: Lilo Mendoza MD Service: Neurology General Author Type: Physician Type: Consults Filed: 05/30/2021 10:56 AM Note Text: [facility] TeleNeurology Consult Note Patient seen using [facility]. Recommendations are placed in the chart. Please review. For questions after hours, when teleneurologist is not available, for DAYKIN: Please Page [phone] for the [facility] from 12pm to 8Am Admitting Provider/Consulted by:Hermes Roca MD Time of Note:05/30/2021 Patient Name:Andrew Sifuentes Admit Date:05/29/2021 Hospital Day:0 CC: altered mental status History of Present Illness: Andrew Sifuentes is a 71 year old unknown handed male with limited information about past medical history including venous insufficiency s/p EVLT, hydrocepalus s/p BLOW MOLD OPERATOR shunt in 1987 with multiple revisions [...] Date , Taking? , Authorizing Provider 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 ([facility]) Debbie Medication Calcium-Cholecalciferol, D3, (CALCIUM 500 + [...] Reflexes Right Lef (more content not included)... [facility] CONSULT PROGon 05-30-[address] [facility] CONSULT PROG HNO ID: [id number] Author: Shannon Gutierres [facility] Service: Pharmacy Author Type: Pharmacist Type: Consult Progress Note Filed: 05/30/2021 2:35 PM Note Text: PHARMACY VANCOMYCIN DOSING NOTE Patient Name: Andrew Sifuentes Admission Date: 05/29/2021 Date of Consult: 05/30/2021 Time of Consult: 2:32 PM Indication: possible PUBLIC HOUSING INTERVIEWER infection Goal Range: 15-20 mcg/mL RECOMMENDATIONS/PLAN: Pharmacy [...] any questions, please contact inpatient pharmacy at [phone]. Age: [age] year old Allergies: ALLERGIES Allergen [...] Levels: No results found for: IMANI Gutierres, [facility] Creatinineon 05-30-2021 Creatinine [Mass/Vol] 0.86 mg/dL Normal 0.73-1.22 [facility] Comment on above: Performed By: #### C RET1 ####[facility] [address] [place] [phone] eGFR- Amer. >60 [facility] Comment on above: Performed By: #### C RET1 ####[facility] Okbbkvjsnc8711 [address] eGFR-All Other Races >60 [facility] Comment on above: Result Comment: eGFR [...] at [email or web address]. Performed By: #### C RET1 ####[facility] Safeqbgchj1435 [address] Crypto Antigen Deton 022 Crypto Antigen Det Sp. Request/Comment: - SST Test Result - Duplicate request Account Credited [facility] Comment on above: Performed By: #### C AD #### [facility] [address] [place] [address] [facility] [address] [place] [address] Crypto Antigen Det Sp. Request/Comment: - SST Test Result - Cryptococcal antigen detection result: Negative By latex agglutination [facility] Comment on above: Performed By: #### C AD #### [facility] [address] [place] [address] [facility] [address] [place], [place] [address] ED NOTEon 05-30-2021 ED NOTE HNO ID: [id number] Author: Aletha Lopez RN Service: ? Author Type: Registered Nurse Type: ED Notes Filed: 05/29/2021 11:16 PM Note Text: Patient changed for incontinent urine, labs redrawn and sent. Patient aware of plan to be admitted and agrees with plan [facility] HISTORY PHYSICALon HISTORY PHYSICAL Normal [facility] HISTORY PHYSICAL HNO ID: [id number] Author: Hermes Roca MD Service: Hospital Medicine Author Type: Physician Type: HANDP Filed: 05/30/2021 1:03 AM Note Text: DEPARTMENT OF HOSPITAL MEDICINE HISTORY AND PHYSICAL EXAM SERVICE DATE: 05/29/2021 SERVICE TIME: 11:18 PM Primary Care Physician: Mateus Burris MD NIGHT AND WEEKEND COVERAGE: Please page [phone] until 7:30am this morning. After 7:30am please check the treatment team banner and page the appropriate service. 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 Normal [facility] Magnesium SerPl-mCncon 05-30 Magnesium [Mass/Vol] 2.5 mg/dL High 1.7-2.3 [facility] Comment on above: Order Comment: Speci men Type: BLOOD SPECIMEN Performed By: #### 1 9123-9, 2777-1 ####[facility]ORATORYCLIA [id number] [place] [address] [place] NURSING PROGon 05-30-2021 NURSING PROG HNO ID: [id number] Author: Precious Cervantes RN Service: ? Author Type: Registered Nurse Type: Nursing Progress Note Filed: 05/30/2021 11:26 AM Note Text: Nursing Progress Note Patient Name: Andrew Sifuentes [id number] Daily Note: 0700- Report received from fast food shift supervisor RN, patient resting in bed at this time, call light within reach, bed low and locked. Asked the patient to state his name because fast food shift supervisor RN was unable to complete his admission [...] This note was completed by: Precious Cervantes [facility] NURSING PROG HNO ID: [id number] Author: Lyubov Day RN Service: ? Author Type: Registered Nurse Type: Nursing Progress Note Filed: 05/30/2021 1:27 AM Note Text: Nursing Progress Note Patient Name: Andrew Sifuentes [id number] 0100: Patient is unresponsive to questions. Patient [...] This note was completed by: Lyubov Day [facility] Phosphate SerPl-mCncon 05-30 Phosphate [Mass/Vol] 3.5 mg/dL Normal 2.7-4.8 [facility] Comment on above: Order Comment: Speci men Type: BLOOD SPECIMEN Performed By: #### 1 9123-9, 2777-1 ####[facility]ORATORYCLIA [id number] [place] [address] [place] Sepsis Lactateon 05-30-2021 Sepsis Lactate 1.5 mmol/L Normal 0.5-2.0 [facility] Comment on above: Performed By: #### S LACT ####[facility] [address] [place] [phone] Syphilis Ttl w/Reflxon 05-30 Syphilis Interp Cannot exclude recen t Treponemal infection if specimen collected within 7 to 10 days after appearance of suspect lesions or 2 to 3 weeks after an exposure. Clinical correlation is required. [facility] Comment on above: Performed By: #### S YPHTX, B1WB ####[facility] [address] [place], [place] [phone] Syphilis Screen Rslt Non-Reactive Normal Non Reactive [facility] Comment on above: Performed By: #### S YPHTX, B1WB ####[facility] [address] [place], [place] [phone] THERAPY NTon 05-30-2021 THERAPY NT HNO ID: [id number] Author: Bette Jimenez OTR/L Service: Occupational Therapy Author Type: Occupational Therapist Type: Therapy (PT/OT/Speech/Resp) Filed: 05/30/2021 10:29 AM Note Text: OCCUPATIONAL THERAPY MISSED VISIT SERVICE DATE: 05/30/2021 SERVICE TIME: 1017 to 1019 ROOM: [place] [address] Attempted Evaluation. Patient not seen due to Not following commands. Per nursing patient was seen by neuro and they are talking about having him transferred to [facility] secondary to shunt concerns. Will re attempt in the event patient continues to be admitted at [facility] and is able to participate. SIGNATURE: Bette Jimenez OTR/L PATIENT NAME: Andrew Sifuentes DATE: May 30, 2021 TIME: 10:21 AM [facility] THERAPY NT HNO ID: [id number] Author: Bette Velasquez PT Service: Physical Therapy Author Type: Physical Therapist Type: Therapy (PT/OT/Speech/Resp) Filed: 05/30/2021 8:42 AM Note Text: PHYSICAL THERAPY MISSED VISIT SERVICE DATE: 05/30/2021 SERVICE TIME: 0840 to 0840 ROOM: [place] [address] Attempted Evaluation. Patient not seen due to (pt difficult to awake per RN, very lethargic). Will re-attempt when schedule permits. SIGNATURE: Bette Velasquez PT PATIENT NAME: Andrew Sifuentes DATE: May 30, 2021 TIME: 8:41 AM Normal [facility] Toxicology Screen,Uron 05-30 Amphetamines, Urine Negative Normal Negative [facility] Comment on above: Result Comment: Cuto ff threshold at 1000 ng/mL. Performed By: #### C AD #### [facility] [place] [phone] [place] [address] Barbiturates, Urine Negative Normal Negative [facility] Comment on above: Result Comment: Cuto ff threshold at 200 ng/mL. Performed By: #### C AD #### [facility] [address] [place] [phone] [facility] [address] [place] [address] Benzodiazepines, Ur Negative Normal Negative [facility] Comment on above: Result Comment: Cuto ff threshold at 200 ng/mL. Performed By: #### C AD #### [facility] [address] [place] [phone] [facility] [address] [place] [address] Cannabinoids, Urine Negative Normal Negative [facility] Comment on above: Result Comment: Cuto ff threshold at 50 ng/mL. Performed By: #### C AD #### [facility] [address] [place] [phone] [place] [address] Cocaine, Urine Negative Normal Negative [facility] Comment on above: Result Comment: Cuto ff threshold at 300 ng/mL. Performed By: #### C AD #### [facility] [address] [place] [phone] [place] [address] Opiates, Urine Negative Normal Negative [facility] Comment on above: Result Comment: Cuto ff threshold at 300 ng/mL. Performed By: #### C AD #### [facility] [address] [place] [address] Oxycodone, Urine Negative Normal Negative [facility] Comment on above: Result Comment: Cuto ff [...] on the same specimen through Client Services ([phone]) if contacted within 48 hours of initial testing. [1]Substance Abuse and Mental Health Services Administration (2012). Clinical Drug Testing in Primary Care Technical Assistance Publication Series 32. Department of Health and Human Services, [place], p.10. Performed By: #### C AD #### [facility] [place] [phone] [place], [place] [address] Phencyclidine, Urine Negative Normal Negative [facility] Comment on above: Result Comment: Cuto ff threshold at 25 ng/mL. Performed By: #### C AD #### [facility] [address] [place] [address] [facility] [address] [place] [address] Troponin Ton 05-30-2021 Troponin T <0.010 Normal 0.000-0.029 [facility] Comment on above: Performed By: #### T NT ####[facility] [address] [place] [phone] Urinalysison 05-30-2021 Bilirubin, Urine Negative Normal Negative [facility] Comment on above: Performed By: #### C AD #### [facility] [place] [phone] [place] [phone] Clarity (U) Slightly Cloudy Critically abnormal Clear [facility] Comment on above: Performed By: #### C AD #### [facility] [place] [phone] [place] [phone] Color (U) Yellow Normal Yellow [facility] Comment on above: Performed By: #### C AD #### [facility] [address] [place] [phone] [facility] [address] [place] [address] Glucose Ql (U) Negative Normal Negative [facility] Comment on above: Performed By: #### C AD #### [facility] [place] [phone] [facility] [address] [place] [address] Hemoglobin/Blood,Ur Negative Normal Negative [facility] Comment on above: Performed By: #### C AD #### [facility] [address] [place] [address] [facility] [address] [place], [place] [address] Ketones Ql (U) Negative Normal Negative [facility] Comment on above: Performed By: #### C AD #### [facility] [address] [place] [address] [facility] [address] [place], [place] [address] Leukest Negative Normal Negative [facility] Comment on above: Performed By: #### C AD #### [facility] [place] [address] [facility] [address] [place] [address] Nitrite Ql (U) Negative Normal Negative [facility] Comment on above: Performed By: #### C AD #### [facility] [address] [place] [address] [facility] [address] [place] [address] pH (U) 8.5 [pH] High 5.0-8.0 [facility] Comment on above: Performed By: #### C AD #### [facility] [place] [address] [facility] [address] [place] [address] Protein, Urine Negative Normal Negative [facility] Comment on above: Performed By: #### C AD #### [facility] [place] [address] [facility] [address] [place], [place] [address] Specific [place], Ur 1.015 Normal 1.005-1.030 [facility] Comment on above: Performed By: #### C AD #### [facility] [place] [address] [place] [address] [place], [place] [address] Urobilinogen Qn (U) 0.2 {Marianne'U}/dL Normal 0.2-1.0 [facility] Comment on above: Performed By: #### C AD #### [facility] [address] [place] [address] [facility] [address] [place], [place] [address] Vitamin B1, Whole Blon 05-30 Vitamin B1 (TDP), WB 207.1 nmol/L Normal 84.0-213.0 [facility] Comment on above: Result Comment: This assay measures the concentration of thiamine diphosphate (TDP), the primary active form of vitamin B1. Approximately 90 percent of vitamin B1 present in whole blood is TDP. Thiamine and thiamine monophosphate, which comprise the remaining 10 percent, are not measured. This test was developed and its performance characteristics determined by [facility]'s Isrrael Perez [facility] Pathology and Laboratory Medicine [place] ( [facility]). It has not been cleared or approved by the FDA. [facility] is regulated under CLIA as qualified to perform high complexity testing. This test is used for clinical purposes. It should not be regarded as investigational or for research. Performed By: #### S YPHTX, B1WB ####[facility] [place], [place] [phone] Vitamin B12on 05-30-2021 Cobalamin (Vitamin B12) [Mass/Vol] 494 pg/mL Normal 232-1245 [facility] Comment on above: Performed By: #### C AD #### [facility] [place] [address] [place] [address] [place], [place] [address] ALLIED HEALTHon 05-29-2021 ALLIED HEALTH HNO ID: [id number] Author: RT Kitty(R) Service: Radiology Author Type: [...] RT Kitty(R) May 29, 2021 8:51 PM [facility] ALLIED HEALTH HNO ID: [id number] Author: Markie Fish Service: ? Author Type: Instructional Technology Coordinator Type: Allied Health Filed: 05/29/2021 8:39 PM [...] Markie Fish May 29, 2021 8:38 PM [facility] CBC and Differentialon 05-29 Abs Baso 0.05 k/uL Normal <0.11 [facility] Comment on above: Performed By: #### C MP, MG1, CBCDIF ####[facility] [address] [place] [address] Abs Lonoke 0.72 k/uL Normal <0.87 [facility] Comment on above: Performed By: #### C MP, MG1, CBCDIF ####[facility] [address]u9[address] [place] [address] Abs Neut 7.86 k/uL High 1.45-7.50 [facility] Comment on above: Performed By: #### C MP, MG1, CBCDIF ####[facility] Y[address]uf[address]mu70[address] [place] [address] Absolute nRBC <0.01 Normal <0.01 [facility] Comment on above: Performed By: #### C MP, MG1, CBCDIF ####[facility] [address] [place] [address] Basophils/100 WBC (Bld) 0.5 % [facility] Comment on above: Performed By: #### C MP, MG1, CBCDIF ####[facility] [address] [place] [address] DTYPE Auto Diff Normal [facility] Comment on above: Performed By: #### C MP, MG1, CBCDIF ####[facility] [address] [place] [address] Eosinophils (Bld) [#/Vol] 0.10 10*3/uL Normal <0.46 [facility] Comment on above: Performed By: #### C MP, MG1, CBCDIF ####[facility] [address] [place] [address] Eosinophils/100 WBC (Bld) 0.9 % [facility] Comment on above: Performed By: #### C MP, MG1, CBCDIF ####[facility] [address] [place] [address] Erythrocyte distribution width (RBC) [Ratio] 15.5 % High 11.5-15.0 [facility] Comment on above: Performed By: #### C MP, MG1, CBCDIF ####[facility] [address] [place] [address] Hematocrit (Bld) [Volume fraction] 41.6 % Normal 39.0-51.0 [facility] Comment on above: Performed By: #### C MP, MG1, CBCDIF ####[facility] [address] [place] [address] Hemoglobin (Bld) [Mass/Vol] 12.7 g/dL Low 13.0-17.0 [facility] Comment on above: Performed By: #### C MP, MG1, CBCDIF ####[facility] [address] [place] [address] Lymphocytes (Bld) [#/Vol] 2.04 10*3/uL Normal 1.00-4.00 [facility] Comment on above: Performed By: #### C MP, MG1, CBCDIF ####[facility] [address] [place] [address] Lymphocytes/100 WBC (Bld) 18.9 % Normal [facility] Comment on above: Performed By: #### C MP, MG1, CBCDIF ####[facility] [address] [place] [address] MCH 27.3 pG Normal 26.0-34.0 [facility] Comment on above: Performed By: #### C MP MG1, CBCDIF ####[facility] [address] [place] [address] MCHC (RBC) [Mass/Vol] 30.5 g/dL Normal 30.5-36.0 [facility] Comment on above: Performed By: #### C MP, MG1, CBCDIF ####[facility] [address] [place] [address] MCV (RBC) [Entitic vol] 89.5 fL Normal 80.0-100.0 [facility] Comment on above: Performed By: #### C MP, MG1, CBCDIF ####[facility] [address] [place] [address] Monocytes/100 WBC (Bld) 6.7 % Normal [facility] Comment on above: Performed By: #### C MP, MG1, CBCDIF ####[place] [address] Neutrophils/100 WBC (Bld) 73.0 % Normal [facility] Comment on above: Performed By: #### C MP, MG1, CBCDIF ####[facility] [address] [place] [address] NRBCs 0.0 /100 WBC Normal 0 [facility] Comment on above: Performed By: #### C MP, MG1, CBCDIF ####[facility] [address] [place] [address] Platelet mean volume (Bld) [Entitic vol] 10.1 fL Normal 9.0-12.7 [facility] Comment on above: Performed By: #### C MP, MG1, CBCDIF ####[facility] [address] [place], [place] [phone] Platelets (Bld) [#/Vol] 291 10*3/uL Normal 150-400 [facility] Comment on above: Performed By: #### C MP, MG1, CBCDIF ####[facility] Ocnszvzlom4905 [address]21[address] RBC (Bld) [#/Vol] 4.65 10*6/uL Normal 4.20-6.00 [facility] Comment on above: Performed By: #### C MP, MG1, CBCDIF ####[facility] Tpcduhxfqj3497 [address]721[address] WBC (Bld) [#/Vol] 10.77 10*3/uL Normal 3.70-11.00 [facility] Comment on above: Performed By: #### C MP, MG1, CBCDIF ####[facility] [address] [place] [phone] CT BRAIN WO IVCONon 05-29-19 CT BRAIN WO IVCON * * *Final Report* * * DATE OF EXAM: May 29 2021 8:42PM [facility] 0504 - CT BRAIN WO IVCON / PROCEDURE REASON: Head trauma, headache * * * * Physician Interpretation * * * * EXAMINATION: CT CERVICAL SPINE WO IVCON, CT BRAIN WO IVCON CLINICAL HISTORY: C-spine trauma, NEXUS/CCR positive (accession [id number]), Head trauma, headache (accession [id number]) TECHNIQUE: Serial axial unenhanced images were obtained from the vertex to the foramen magnum. Spiral, high resolution axial unenhanced images were obtained from the skull base to the cervicothoracic junction with sagittal and coronal planar reconstructions. Dose-Length Product (DLP): 2132 mGy*cm. CT Dose Reduction Employed: Automated exposure control (AEC) COMPARISON: 08/13/[address] RESULT: BRAIN: Post-operative change: Right parietal approach BLOW MOLD OPERATOR shunt is intact. The intracranial fragments [...] vertebrae with counting from the craniocervical junction. Automobile Lights Assembler: [facility] Transcribe Date/Time: May 29 2021 8:59P Dictated by : CARLOS YOUNGER MD This examination was interpreted and the report reviewed and electronically signed by: CARLOS YOUNGER MD on May 29 2021 9:14PM EST [id number] [facility] CT CERVICAL SPINE WO IVCONon 05-29-2021 CT CERVICAL SPINE WO IVCON * * *Final Report* * * DATE OF EXAM: May 29 2021 8:42PM [facility] 0505 - CT CERVICAL SPINE WO IVCON / PROCEDURE REASON: C-spine trauma, NEXUS/CCR positive * * * * Physician Interpretation * * * * EXAMINATION: CT CERVICAL SPINE WO IVCON, CT BRAIN WO IVCON CLINICAL HISTORY: C-spine trauma, NEXUS/CCR positive (accession [id number]), Head trauma, headache (accession [id number]) TECHNIQUE: Serial axial unenhanced images were obtained from the vertex to the foramen magnum. Spiral, high resolution axial unenhanced images were obtained from the skull base to the cervicothoracic junction with sagittal and coronal planar reconstructions. Dose-Length Product (DLP): 2132 mGy*cm. CT Dose Reduction Employed: Automated exposure control (AEC) COMPARISON: 08/13/[address] RESULT: BRAIN: Post-operative change: Right parietal approach BLOW MOLD OPERATOR shunt is intact. The intracranial fragments [...] vertebrae with counting from the craniocervical junction. Automobile Lights Assembl[facility]: [facility] Transcribe Date/Time: May 29 2021 8:59P Dictated by : CARLOS YOUNGER MD This examination was interpreted and the report reviewed and electronically signed by: CARLOS YOUNGER MD on May 29 2021 9:14PM EST [id number] Normal [facility] Cepheid Bill only (EXCFR)on 05-29-2021 Cepheid Bill only (EXCFR) Billed for services performed Normal [facility] Comment on above: Performed By: #### C AD #### [facility] [address] [place] [address] [facility] [address] [place], [place] [address] Comp Metabolic Panelon 05-29 Albumin [Mass/Vol] 4.1 g/dL Normal 3.9-4.9 [facility] Comment on above: Performed By: #### C MP ####[facility] [address] [place] [address] ALP [Catalytic activity/Vol] 86 U/L Normal 38-113 [facility] Comment on above: Performed By: #### C MP ####[facility] [address] [place] [address] ALT [Catalytic activity/Vol] 15 U/L Normal 10-54 [facility] Comment on above: Performed By: #### C MP ####[facility] [address] [place] [address] Anion gap [Moles/Vol] 9 mmol/L Normal 9-18 [facility] Comment on above: Performed By: #### C MP ####[facility] [address] [place] [address] AST [Catalytic activity/Vol] 22 U/L Normal 14-40 [facility] Comment on above: Performed By: #### C MP ####[facility] [address] [place] [address] Bilirubin [Mass/Vol] 0.2 mg/dL Normal 0.2-1.3 [facility] Comment on above: Performed By: #### C MP ####[facility] [address] [place] [address] Calcium [Mass/Vol] 9.1 mg/dL Normal 8.5-10.2 [facility] Comment on above: Performed By: #### C MP ####[facility] [address] [place] [address] Chloride [Moles/Vol] 103 mmol/L Normal 97-105 [facility] Comment on above: Performed By: #### C MP ####[facility] [address] [place] [address] CO2 [Moles/Vol] 29 mmol/L Normal 22-30 [facility] Comment on above: Performed By: #### C MP ####[facility] [address] [place] [address] Creatinine [Mass/Vol] 0.89 mg/dL Normal 0.73-1.22 [facility] Comment on above: Performed By: #### C MP ####[facility] [address] [place] [address] eGFR- Amer. >60 Normal [facility] Comment on above: Performed By: #### C MP ####[facility] [address] [place] [phone] eGFR-All Other Races >60 Normal [facility] Comment on above: Result Comment: eGFR [...] at [email or web address]. Performed By: #### C MP ####[facility] Whxmbbimss6645 [address]721[address]160 Glucose [Mass/Vol] 120 mg/dL High 74-99 [facility] Comment on above: Result Comment: The [place] [employer] (ADA) provides guidance for cutoff [...] Standards of Medical Care in Diabetes 2016, [place] [employer]. Diabetes Care. 2016.39(Suppl 1). Performed By: #### C MP ####[facility] [address] [place] [phone] Potassium [Moles/Vol] 4.2 mmol/L Normal 3.7-5.1 [facility] Comment on above: Performed By: #### C MP ####[facility] [address] [place] [address] Protein [Mass/Vol] 7.1 g/dL Normal 6.3-8.0 [facility] Comment on above: Performed By: #### C MP ####[facility] [address] [place] [address] Sodium [Moles/Vol] 141 mmol/L Normal 136-144 [facility] Comment on above: Performed By: #### C MP ####[facility] [address]xe[address] [place] [address] Urea nitrogen [Mass/Vol] 11 mg/dL Normal 9-24 [facility] Comment on above: Performed By: #### C MP ####[facility] [address] [place] [address] Albumin [Mass/Vol] 4.1 g/dL Normal 3.9-4.9 [facility] Comment on above: Performed By: #### C MP, MG1, CBCDIF ####[facility] [address] [place] [address] ALP [Catalytic activity/Vol] 86 U/L Normal 38-113 [facility] Comment on above: Performed By: #### C MP, MG1, CBCDIF ####[facility] [address] [place] [address] ALT Unable to assay due to interference from hemolysis. Suggest reorder as clinically indicated. Normal 10-54 [facility] Comment on above: Result Comment: Call ed to ED Álvaro at 2128 on 05.29.21 by Sabino Performed By: #### C MP, MG1, CBCDIF ####[facility] [address] [place] [address] Anion gap [Moles/Vol] 12 mmol/L Normal 9-18 [facility] Comment on above: Performed By: #### C MP, MG1, CBCDIF ####[facility] [address] [place] [address] AST Unable to assay due to interference from hemolysis. Suggest reorder as clinically indicated. Normal 14-40 [facility] Comment on above: Result Comment: Call ed to ED Álvaro at 2129 on 05.29.21 by Sabino Performed By: #### C MP, MG1, CBCDIF ####[facility] [address] [place] [address] Bilirubin [Mass/Vol] 0.2 mg/dL Normal 0.2-1.3 [facility] Comment on above: Performed By: #### C MP, MG1, CBCDIF ####[facility] [address] [place] [address] Calcium [Mass/Vol] 9.0 mg/dL Normal 8.5-10.2 [facility] Comment on above: Performed By: #### C MP, MG1, CBCDIF ####[facility] [address] [place] [address] Chloride [Moles/Vol] 102 mmol/L Normal 97-105 [facility] Comment on above: Performed By: #### C MP, MG1, CBCDIF ####[facility] W[address]gc1526 [place] [address] CO2 [Moles/Vol] 27 mmol/L Normal 22-30 [facility] Comment on above: Performed By: #### C MP, MG1, CBCDIF ####[facility] [address]rohl[address] [place] [address] Creatinine [Mass/Vol] 0.75 mg/dL Normal 0.73-1.22 [facility] Comment on above: Performed By: #### C MP, MG1, CBCDIF ####[facility] [address] [place] [address] eGFR- Amer. >60 Normal [facility] Comment on above: Performed By: #### C MP, MG1, CBCDIF ####[facility] [address]fcjga[address] [place] [address] eGFR-All Other Races >60 Normal [facility] Comment on above: Result Comment: eGFR [...] Performed By: #### C MP, MG1, CBCDIF ####[facility] Yj[address]yedjci[address]721[address]5160 Glucose [Mass/Vol] 112 mg/dL High 74-99 [facility] Comment on above: Result Comment: The [place] Diabetes [employer] (ADA) provides guidance for cutoff [...] Standards of Medical Care in Diabetes 2016, [place] [employer]. Diabetes Care. 2016.39(Suppl 1). Performed By: #### C MP, MG1, CBCDIF ####[facility] [address] [place] [phone] Potassium Unable to assay due to interference from hemolysis. Suggest reorder as clinically indicated. Normal 3.7-5.1 [facility] Comment on above: Result Comment: Call ed to LISA Rea at 2129 on 05.29.21 by Sabino Performed By: #### C MP, MG1, CBCDIF ####[facility] Anrdadktsh6536 [address]721[address]5160 Protein [Mass/Vol] 7.3 g/dL Normal 6.3-8.0 [facility] Comment on above: Performed By: #### C MP, MG1, CBCDIF ####[facility] [address] [place] [phone] Sodium [Moles/Vol] 141 mmol/L Normal 136-144 [facility] Comment on above: Performed By: #### C MP, MG1, CBCDIF ####[facility] [address]unh[address] [place] [phone] Urea nitrogen [Mass/Vol] 11 mg/dL Normal 9-24 [facility] Comment on above: Performed By: #### C MP, MG1, CBCDIF ####[facility] [address] [place] [phone] ED PROV NOTEon 05-29-2021 ED PROV NOTE HNO ID: [id number] Author: Shanell Slaughter MD Service: ? Author [...] reviewed and are negative. Physical Exam Vitals [05/29/21 1949] BP Pulse Temp Temp src Resp SpO2 [...] No radiographic evidence of acute cardiopulmonary disease. Automobile Lights Assembler: [employer] Transcribe Date/Time: May 29 2021 8:53P Dictated by : ROLY BANGURA MD This examination was interpreted and the report reviewed and electronically signed by: ROLY BANGURA MD on May 29 2021 8:54PM EST CT BRAIN WO IVCON Final Result IMPRESSION: Head CT: No acute abnormality. Cervical CT: No acute abnormality. Anatomic Variant: None. Assume 7 cervical vertebrae with counting from the craniocervical junction. Automobile Lights Assembler: [employer] Transcribe Date/Time: May 29 2021 8:59P Dictated [...] vertebrae with counting from the craniocervical junction. Automobile Lights Assembl[facility]: [facility] Transcribe Date/Time: May 29 (more content not included)... Normal [facility] ED PROV NOTE HNO ID: [id number] Author: Flavio Pandya DO Service: Emergency Medicine Author Type: Physician Type: ED Provider Notes Filed: 05/29/2021 7:10 PM Note Text: ED Provider Note Patient Name: Andrew Sifuentes SERVICE DATE: 05/29/21 History Patient presents with: Fall 71 yo male non-smoker, hx of HTN, 2 BLOW MOLD OPERATOR shunts, PE (not on anticoagulation now), [...] with assistance from bedside clinician. Provider Location: [facility] Patient Location: Outpatient Hospital Physical Exam [...] Flavio Pandya, DO Flavio Pandya, 05/29/211909 Normal [facility] EXCOVD, Flu A/B, RSV (On int erfaces 1102,1120)on 05-29-2021 Influenza A PCR Negative [facility] Comment on above: Performed By: #### C AD #### [facility] [address] [place] [address] [facility] [address] [place], [place] [address] Influenza B PCR Negative Normal [facility] Comment on above: Performed By: #### C AD #### [facility] [address] [place] [address] [facility] [address] [place], [place] [address] RSV PCR Negative Normal [facility] Comment on above: Result Comment: This test has been authorized by FDA under an Emergency Use Authorization (EUA). Performed By: #### C AD #### [facility] [place] [address] [place] [address] SARS-CoV-2 (COVID-19) RNA MEGAN+probe Ql (Unsp spec) UPPER RESPIRATORY TRACT SWAB Normal [facility] Comment on above: Performed By: #### C AD #### [facility] [address] [place], [place] [address] [place] [address] SARS-CoV-2 (COVID-19) RNA MEGAN+probe Ql (Unsp spec) Negative for COVID19 (SARS CoV2) by RT-PCR or equivalent method. Normal Negative for COVID19 (SARS CoV2) by RT-PCR or equivalent method. [facility] Comment on above: Result Comment: This test has been authorized by FDA under an Emergency Use Authorization (EUA). Performed By: #### C AD #### [facility] [address] [place], [place] [address] [place] [address] Magnesiumon 05-29-2021 Magnesium [Mass/Vol] 2.2 mg/dL Normal 1.7-2.3 [facility] Comment on above: Performed By: #### C MP, MG1, CBCDIF ####[facility] [address] [place] [phone] NT Pro BNPon 05-29-2021 PRO B Natr Peptide 303 pg/mL High <125 [facility] Comment on above: Performed By: #### N TBNP ####[facility] Lwheselhzj[phone] Troponin Ton 05-29-2021 Troponin T <0.010 Normal 0.000-0.029 [facility] Comment on above: Performed By: #### T NT ####[facility] Jriompsyim[address]84 [phone] Troponin T Unable to assay due to interference from hemolysis. Suggest reorder as clinically indicated. Normal 0.000-0.029 [facility] Comment on above: Result Comment: Call ed to ED Álvaro at 2129 on 05.29.21 by Sabino Performed By: #### T NT ####[facility] [address] [place] [phone] XR CHEST 1V FRONTAL PORTon 0 05-29-2021 [...] No radiographic evidence of acute cardiopulmonary disease. Automobile Lights Assembler: [employer] Transcribe Date/Time: May 29 2021 8:53P Dictated by : ROLY BANGURA MD This examination was interpreted and the report reviewed and electronically signed by: ROLY BANGURA MD on May 29 2021 8:54PM EST [id number] Normal [facility] COMPREHENSIVE PANELon 2020 Albumin [Mass/Vol] 3.9 g/dL Normal 3.4 - 5.0 [facility] Comment on above: Order Comment: PATIE NT FASTING Performed By: #### C MP #### [facility] [address] [place] [address] ALP [Catalytic activity/Vol] 71 U/L Normal 33 - 136 [facility] Comment on above: Order Comment: PATIE NT FASTING Performed By: #### C MP #### [facility] [address] [place] [address] ALT [Catalytic activity/Vol] 19 U/L Normal 10 - 52 [facility] Comment on above: Order Comment: PATIE NT FASTING Result Comment: Nasima ents treated with Sulfasalazine may generate falsely decreased results for ALT. Performed By: #### C MP #### [facility] [address] [place] [address] Anion gap [Moles/Vol] 13 mmol/L Normal 10 - 20 [facility] Comment on above: Order Comment: PATIE NT FASTING Performed By: #### C MP #### [facility] [address] [place] [address] AST [Catalytic activity/Vol] 20 U/L Normal 9 - 39 [facility] Comment on above: Order Comment: PATIE NT FASTING Performed By: #### C MP #### [facility] [address] [place] [address] Bilirubin [Mass/Vol] 0.6 mg/dL Normal 0.0 - 1.2 [facility] Comment on above: Order Comment: PATIE NT FASTING Performed By: #### C MP #### [facility] [address] [place] [address] Calcium [Mass/Vol] 9.0 mg/dL Normal 8.6 - 10.6 [facility] Comment on above: Order Comment: PATIE NT FASTING Performed By: #### C MP #### [facility] [address] [place] [address] Chloride [Moles/Vol] 103 mmol/L Normal 98 - 107 [facility] Comment on above: Order Comment: PATIE NT FASTING Performed By: #### C MP #### [facility] [address] [place] [address] Creatinine [Mass/Vol] 0.94 mg/dL Normal 0.50 - 1.30 [facility] Comment on above: Order Comment: PATIE NT FASTING Performed By: #### C MP #### [facility] [address] [place] [address] GFR- AM. >60 Normal >60 [facility] Comment on above: Order Comment: PATIE NT FASTING Result Comment: CALC ULATIONS OF ESTIMATED GFR ARE PERFORMED USING THE MDRD STUDY EQUATION FOR THE IDMS-TRACEABLE CREATININE METHODS. CLIN CHEM 2007;53:766-72 Performed By: #### C MP #### [facility] [address] [place] [address] GFR-NON AM. >60 Normal >60 [facility] Comment on above: Order Comment: PATIE NT FASTING Performed By: #### C MP #### [facility] [address] [place] [address] Glucose [Mass/Vol] 85 mg/dL Normal 74 - 99 [facility] Comment on above: Order Comment: PATIE NT FASTING Performed By: #### C MP #### [facility] [address] [place] [address] HCO3 (Bld) [Moles/Vol] 30 mmol/L Normal 21 - 32 [facility] Comment on above: Order Comment: PATIE NT FASTING Performed By: #### C MP #### [facility] [address] [place] [address] Potassium [Moles/Vol] 4.1 mmol/L Normal 3.5 - 5.3 [facility] Comment on above: Order Comment: PATIE NT FASTING Performed By: #### C MP #### [place] [address] [place] [address] Protein [Mass/Vol] 6.6 g/dL Normal 6.4 - 8.2 [facility] Comment on above: Order Comment: PATIE NT FASTING Performed By: #### C MP #### [facility] [address] [place] [address] Sodium [Moles/Vol] 142 mmol/L Normal 136 - 145 [facility] Comment on above: Order Comment: PATIE NT FASTING Performed By: #### C MP #### [facility] [address] [place] [address] Urea nitrogen [Mass/Vol] 14 mg/dL Normal 6 - 23 [facility] Comment on above: Order Comment: PATIE NT FASTING Performed By: #### C MP #### [facility] [address] [place] [address] LIPID PANEL (CORONARY RISK 2 )on 09-03-2020 Cholesterol [Mass/Vol] 210 mg/dL High 0 - 199 [facility] Comment on above: Order Comment: PATIE [...] dosing. Performed By: #### L IPID #### [facility] [address] [place] [address] Cholesterol in HDL [Mass/Vol] 50.1 mg/dL Normal [facility] Comment on above: Order Comment: PATIE NT FASTING Result Comment: . AGE VERY LOW LOW NORMAL HIGH 0-19 Y < 35 < 40 40-45 ---- 20-24 Y ---- < 40 >45 ---- >24 Y ---- < 40 40-60 >60 . Performed By: #### L IPID #### [facility] [address] [place] [address] Cholesterol in LDL [Mass/Vol] 130 mg/dL High 0 - 99 [facility] Comment on above: Order Comment: PATIE NT FASTING Result Comment: . NEAR BORD AGE DESIRABLE OPTIMAL HIGH HIGH VERY HIGH 0-19 Y 0 - 109 --- 110-129 >/= 130 ---- 20-24 Y 0 - 119 --- 120-159 >/= 160 ---- >24 Y 0 - 99 100-129 130-159 160-189 >/=190 . Performed By: #### L IPID #### [facility] [address] [place] [address] Cholesterol in VLDL [Mass/Vol] 30 mg/dL Normal 0 - 40 [facility] Comment on above: Order Comment: PATIE NT FASTING Performed By: #### L IPID #### [facility] [address] [place] [address] Cholesterol.total/Chol esterol in HDL [Mass ratio] 4.2 {ratio} Normal [facility] Comment on above: Order Comment: PATIE NT FASTING Result Comment: REF VALUES DESIRABLE < 3.4 HIGH RISK > 5.0 Performed By: #### L IPID #### [facility] [address] [place] [address] Triglyceride [Mass/Vol] 152 mg/dL High 0 - 149 [facility] Comment on above: Order Comment: PATIE [...] Performed By: #### L IPID #### [facility] [address] [place] [address] PROSTATE SPEC.AG,SCREENon PROSTATE SPEC.AG,SCREEN 0.37 ng/mL Normal 0.00 - 4.00 [facility] Comment on above: Order Comment: PATIE NT FASTING Result Comment: The FDA requires that the method used for PSA assay be reported to the physician. Values obtained with different assay methods must not be used interchangeably. This test was performed at [facility] using the Siemens WorldratllExploraMed PSA method, which is a sandwich immunoassay using chemiluminescence for quantitation. The assay is approved for measurement of prostate-specific antigen (PSA) in serum and may be used in conjunction with a digital rectal examination in men 50 years and older as an aid in detection of prostate cancer. 6-Rqabr-jvljjjrij inhibitors (e.g. Proscar, Finasteride, Avodart, Dutasteride and Elizabeth) for the treatment of BPH have been shown to lower PSA levels by an average of 50% after 6 months of treatment. Performed By: #### P SASC #### [facility] [address] [place] [address] TSH WITH REFLEX TO FREE T4 I F ABNORMALon 09-03-2020 TSH Qn 0.97 m[IU]/L Normal 0.44 - 3.98 [facility] Comment on above: Order Comment: PATIE NT FASTING Result Comment: TSH testing is performed using different testing methodology at [facility] than at other [facility]. Direct result comparisons should only be made within the same method. Performed By: #### T HYDS #### [facility] [address] [place] [address] CBC AND DIFFERENTIALon 09-02 % AUTOMATED IMMATURE GRAN 0.3 % Normal 0.0 - 0.9 [facility] Comment on above: Order Comment: PATIE NT FASTING Result Comment: [place] Granulocyte Count (IG) includes promyelocytes, myelocytes and metamyelocytes but does not include bands. Percent differential counts (%) should be interpreted in the context of the absolute cell counts (cells/L). Performed By: #### C BCDF #### [facility] [address] [place] [address] Basophils (Bld) [#/Vol] 0.07 10*3/uL Normal 0.00 - 0.10 [facility] Comment on above: Order Comment: PATIE NT FASTING Result Comment: Auto mated WBC differential has been confirmed by manual smear. Performed By: #### C BCDF #### [facility] [address] [place] [address] Basophils/100 WBC (Bld) 0.9 % Normal 0.0 - 2.0 [facility] Comment on above: Order Comment: PATIE NT FASTING Performed By: #### C BCDF #### [facility] [address] [place] [address] Eosinophils (Bld) [#/Vol] 0.21 10*3/uL Normal 0.00 - 0.70 [facility] Comment on above: Order Comment: PATIE NT FASTING Performed By: #### C BCDF #### [facility] [address] [place] [address] Eosinophils/100 WBC (Bld) 2.8 % Normal 0.0 - 6.0 [facility] Comment on above: Order Comment: PATIE NT FASTING Performed By: #### C BCDF #### [facility] [address] [place] [address] Lymphocytes (Bld) [#/Vol] 2.28 10*3/uL Normal 1.20 - 4.80 [facility] Comment on above: Order Comment: PATIE NT FASTING Performed By: #### C BCDF #### [facility] [address] [place] [address] Lymphocytes/100 WBC (Bld) 30.9 % Normal 13.0 - 44.0 [facility] Comment on above: Order Comment: PATIE NT FASTING Performed By: #### C BCDF #### [facility] [address] [place] [address] Monocytes (Bld) [#/Vol] 0.50 10*3/uL Normal 0.10 - 1.00 [facility] Comment on above: Order Comment: PATIE NT FASTING Performed By: #### C BCDF #### [facility] [address] [place] [address] Monocytes/100 WBC (Bld) 6.8 % Normal 2.0 - 10.0 [facility] Comment on above: Order Comment: PATIE NT FASTING Performed By: #### C BCDF #### [facility] [address] [place] [address] Neutrophils (Bld) [#/Vol] 4.29 10*3/uL Normal 1.20 - 7.70 [facility] Comment on above: Order Comment: PATIE NT FASTING Performed By: #### C BCDF #### [facility] [address] [place] [address] Neutrophils/100 WBC (Bld) 58.3 % Normal 40.0 - 80.0 [facility] Comment on above: Order Comment: PATIE NT FASTING Performed By: #### C BCDF #### [facility] [address] [place] [address] Erythrocyte distribution width (RBC) [Ratio] 14.6 % High 11.5 - 14.5 [facility] Comment on above: Order Comment: PATIE NT FASTING Performed By: #### C BCDF #### [facility] [address] [place] [address] Hematocrit (Bld) [Volume fraction] 43.1 % Normal 41.0 - 52.0 [facility] Comment on above: Order Comment: PATIE NT FASTING Performed By: #### C BCDF #### [facility] [address] [place] [address] Hemoglobin (Bld) [Mass/Vol] 13.3 g/dL Low 13.5 - 17.5 [facility] Comment on above: Order Comment: PATIE NT FASTING Performed By: #### C BCDF #### [facility] [address] [place] [address] MCHC (RBC) [Mass/Vol] 30.9 g/dL Low 32.0 - 36.0 [facility] Comment on above: Order Comment: PATIE NT FASTING Performed By: #### C BCDF #### [facility] [address] [place] [address] MCV (RBC) [Entitic vol] 92 fL Normal 80 - 100 [facility] Comment on above: Order Comment: PATIE NT FASTING Performed By: #### C BCDF #### [facility] [address] [place] [address] NUCLEATED RBC 0.0 /100 WBC Normal 0.0-0.0 [facility] Comment on above: Order Comment: PATIE NT FASTING Performed By: #### C BCDF #### [facility] [address] [place] [address] Platelets (Bld) [#/Vol] 267 10*3/uL Normal 150 - 450 [facility] Comment on above: Order Comment: PATIE NT FASTING Performed By: #### C BCDF #### [facility] [address] [place] [address] RBC 4.69 x10E12/L Normal 4.50 - 5.90 [facility] Comment on above: Order Comment: PATIE NT FASTING Performed By: #### C BCDF #### [facility] [address] [place] [address] WBC (Bld) [#/Vol] 7.4 10*3/uL Normal 4.4 - 11.3 [facility] Comment on above: Order Comment: PATIE NT FASTING Performed By: #### C BCDF #### [facility] [address] [place] [address] RED CELL MORPHOLOGYon 2020 CHANELL CELLS Few Normal [facility] Comment on above: Order Comment: PATIE NT FASTING Performed By: #### M ORP2 #### [facility] [address] [place] [address] OVALOCYTES Few Normal [facility] Comment on above: Order Comment: PATIE NT FASTING Performed By: #### M ORP2 #### [facility] [address] [place] [address] POLYCHROMASIA Mild Normal [facility] Comment on above: Order Comment: PATIE NT FASTING Performed By: #### M ORP2 #### [facility] [address] [place] [address] RBC FRAGMENTS Few Normal [facility] Comment on above: Order Comment: PATIE NT FASTING Performed By: #### M ORP2 #### [facility] [address] [place] [address] RBC morphology finding Nom (Bld) See Below Normal [facility] Comment on above: Order Comment: PATIE NT FASTING Performed By: #### M ORP2 #### [facility] [address] [place] [address] No Panel Informationon 01-19 76 1 MP-Cardiolo [...] [place] Work Phone: [email or web address] ?RetrieveTestByDateTime?P hyylanQD=[id number]&Date=1 09-13-2019&Time=15%3a11%3a 03%3a00&TestType=ECG&Site =1&OutputType=PDF&Ext=PDF MP-Cardiolo gy-[place] [address] [place] Work Phone: Otheron 11-13-2019 [facility] Complete Blood Count + Diffe [...] (Bld) [Volume fraction] 45.5 % See Below [facility] Work Phone: Comment on above: Reference Range: 41. 0 - 52.0 Hemoglobin (Bld) [Mass/Vol] 14.0 g/dL See Below [facility] Work Phone: Comment on above: Reference Range: 13. 5 - 17.5 Lymphocytes (Bld) [#/Vol] 2.15 {x10E9/L} See Below [facility] Work Phone: Comment on above: Reference Range: 1.2 0 - 4.80 Lymphocytes/100 WBC (Bld) 29.9 % See Below [facility] Work Phone: Comment on above: Reference Range: 13. 0 - 44.0 MCHC (RBC) [Mass/Vol] 30.8 g/dL below low threshold See Below [facility] Work Phone: Comment on above: Reference Range: 32. 0 - 36.0 MCV (RBC) [Entitic vol] 94 fL 80 - 100 -[facility] Work Phone: Monocytes (Bld) [#/Vol] 0.49 {x10E9/L} See Below [facility] Work Phone: Comment on above: Reference Range: 0.1 0 - 1.00 Monocytes/100 WBC (Bld) 6.8 % 2.0 - 10.0 [facility] Work Phone: Neutrophils (Bld) [#/Vol] 4.30 {x10E9/L} See Below [facility] Work Phone: Comment on above: Reference Range: 1.2 0 - 7.70 Neutrophils/100 WBC (Bld) 59.9 % See Below [facility] Work Phone: Comment on above: Reference Range: 40. 0 - 80.0 Platelets (Bld) [#/Vol] 270 {x10E9/L} 150 - 450 [facility] Work Phone: RBC (Bld) [#/Vol] 4.85 {x10E12/L} See Below [facility] Physician [facility] Work Phone: Comment on above: Reference Range: 4.5 0 - 5.90 WBC (Bld) [#/Vol] 0.0 {/100_WBC} 0.0-0.0 [facility] Physician [facility] Work Phone: WBC (Bld) [#/Vol] 7.2 {x10E9/L} 4.4 - 11.3 [facility] Physician [facility] Work Phone: Complete Blood Count + Differential 0.1 % 0.0 - 0.9 [facility] Work Phone: Comment on above: Immature Granulocyte Count (IG) includes promyelocytes, myelocytes and metamyelocytes but does not include bands. Percent differential counts (%) should be interpreted in the context of the absolute cell counts (cells/L). Lipid Panelon 11-06-2019 Cholesterol [Mass/Vol] 181 mg/dL 0 - 199 [facility] Work Phone: Comment on above: . [...] dosing. Cholesterol in HDL [Mass/Vol] 52.1 mg/dL [facility] Physician [facility] Work Phone: Comment on above: . AGE VERY LOW LOW N ORMAL HIGH 0-19 Y < 35 < 40 40-45 ---- 20-24 Y ---- < 40 >45 ---- >24 Y ---- < 40 40-60 >60. Cholesterol in LDL [Mass/Vol] 97 mg/dL 0 - 99 [facility] Work Phone: Comment on above: . NEAR BORD AGE IZABELLA RABLE OPTIMAL HIGH HIGH VERY HIGH 0-19 Y 0 - 109 --- 110-129 >/= 130 ---- 20-24 Y 0 - 119 --- 120-159 >/= 160 ---- >24 Y 0 - 99 100-129 130-159 160-189 >/=190. Cholesterol.total/Chol esterol in HDL [Mass ratio] 3.5 {ratio} [facility] Work Phone: Comment on above: REF VALUESDESIRABLE < 3.4HIGH RISK > 5.0 Triglyceride [Mass/Vol] 158 mg/dL above high threshold 0 - 149 [facility] Work Phone: Comment on above: . AGE [...] Lipid Panel 32 mg/dL 0 - 40 [facility] Work Phone: Metabolic Panelon 11-06-2019 ALP [Catalytic activity/Vol] 70 U/L 33 - 136 [facility] Work Phone: Anion gap [Moles/Vol] 13 mmol/L 10 - 20 [facility] Work Phone: Bilirubin [Mass/Vol] 0.6 mg/dL 0.0 - 1.2 [facility] Work Phone: Calcium [Mass/Vol] 9.4 mg/dL 8.6 - 10.6 [facility] Work Phone: Chloride [Moles/Vol] 99 mmol/L 98 - 107 [facility] Work Phone: CO2 [Moles/Vol] 30 mmol/L 21 - 32 [facility] Work Phone: Creatinine [Mass/Vol] 0.87 mg/dL See Below [facility] Physician [facility] Work Phone: Comment on above: Reference Range: 0.5 0 - 1.30 Glucose [Mass/Vol] 89 mg/dL 74 - 99 [facility] Work Phone: Potassium [Moles/Vol] 4.3 mmol/L 3.5 - 5.3 [facility] Work Phone: Protein [Mass/Vol] 7.3 g/dL 6.4 - 8.2 [facility] Work Phone: Sodium [Moles/Vol] 138 mmol/L 136 - 145 [facility] Work Phone: Urea nitrogen [Mass/Vol] 14 mg/dL 6 - 23 [facility] Work Phone: Otheron 11-06-2019 Albumin BCP dye [Mass/Vol] 4.4 g/dL 3.4 - 5.0 [facility] Work Phone: ALT With P-5'-P [Catalytic activity/Vol] 11 U/L 10 - 52 [facility] Work Phone: Comment on above: Patients treated wit h Sulfasalazine may generate falsely decreased results for ALT. AST With P-5'-P [Catalytic activity/Vol] 17 U/L 9 - 39 [facility] Work Phone: >60 >60 [facility] Work Phone: Comment on above: CALCULATIONS OF LUZMARIA MATED GFR ARE PERFORMED USING THE MDRD STUDY EQUATION FOR THE IDMS-TRACEABLE CREATININE METHODS. CLIN CHEM 2007;53:766-72 Culture, urine Bacteria identified Cx Nom (U) Mixed Gram Pos & Gram Neg Org [facility] Work Phone: Bacteria identified Cx Nom (U) Klebsiella pneumoniae sp pneum [facility] Work Phone: Vital Signs Date Time Vital Sign Value Performing Clinician Facility 09-13-2023 11:48-0400 Body height 175.3 cm Rebecca Buck MD Work Phone: [facility] 09-13-2023 11:48-0400 Body mass index (BMI) [Ratio] 25.84 kg/m2 Rebecca Buck MD Work Phone: [facility] 09-13-2023 11:48-0400 Body weight 79.38 kg Rebecca Buck MD Work Phone: [facility] 08-13-2023 09:56-0400 Body height 175.3 cm Rebecca Buck MD Work Phone: [facility] 08-13-2023 09:56-0400 Body mass index (BMI) [Ratio] 25.84 kg/m2 Rebecca Buck MD Work Phone: [facility] 08-13-2023 09:56-0400 Body weight 79.38 kg Rebecca Buck MD Work Phone: [facility] 03-02-2022 18:49-0400 Body temperature 98.01 [degF] Lanette Munguia DO Work Phone: [facility] 03-02-2022 18:49-0400 Diastolic blood pressure 72 mm[Hg] Lanette Munguia DO Work Phone: [facility] 03-02-2022 18:49-0400 Heart rate 94 /min Lanette Munguia DO Work Phone: [facility] 03-02-2022 18:49-0400 Respiratory rate 18 /min Lanette Munguia DO Work Phone: [facility] 03-02-2022 18:49-0400 SaO2% (BldA) [Mass fraction] 98 % Lanette Munguia DO Work Phone: [facility] 03-02-2022 18:49-0400 Systolic blood pressure 104 mm[Hg] Lanette Munguia DO Work Phone: [facility] 03-02-2022 11:55-0400 Body height 175.3 cm Lanette Munguia DO Work Phone: [facility] 03-02-2022 11:55-0400 Body mass index (BMI) [Ratio] 25.84 kg/m2 Lanette Munguia DO Work Phone: [facility] 03-02-2022 11:55-0400 Body weight 79.38 kg Lanette Munguia DO Work Phone: [facility] 12-22-2021 02:08-0400 Diastolic blood pressure 67 mm[Hg] Sharon Gonzalez MD Work Phone: [facility] 12-22-2021 02:08-0400 Heart rate 77 /min Sharon Gonzalez MD Work Phone: [facility] 12-22-2021 02:08-0400 Respiratory rate 16 /min Sharon Gonzalez MD Work Phone: [facility] 12-22-2021 02:08-0400 SaO2% (BldA) [Mass fraction] 96 % Sharon Gonzalez MD Work Phone: [facility] 12-22-2021 02:08-0400 Systolic blood pressure 108 mm[Hg] Sharon Gonzalez MD Work Phone: [facility] 12-21-2021 23:52-0400 Body height 175.3 cm Sharon Gonzalez MD Work Phone: [facility] 12-21-2021 23:52-0400 Body mass index (BMI) [Ratio] 25.84 kg/m2 Sharon Gonzalez MD Work Phone: [facility] 12-21-2021 23:52-0400 Body temperature 97.9 [degF] Sharon Gonzalez MD Work Phone: [facility] 12-21-2021 23:52-0400 Body weight 79.38 kg Sharon Gonzalez MD Work Phone: [facility] 11-01-2021 08:41-0400 Diastolic blood pressure 77 mm[Hg] Dante Kim MD Work Phone: [facility] 11-01-2021 08:41-0400 Heart rate 75 /min Dante Kim MD Work Phone: [facility] 11-01-2021 08:41-0400 Respiratory rate 16 /min Dante Kim MD Work Phone: [facility] 11-01-2021 08:41-0400 SaO2% (BldA) [Mass fraction] 97 % Dante Kim MD Work Phone: [facility] 11-01-2021 08:41-0400 Systolic blood pressure 112 mm[Hg] Dante Kim MD Work Phone: [facility] 10-31-2021 19:13-0400 Body height 177.8 cm Dante Kim MD Work Phone: [facility] 10-31-2021 19:13-0400 Body mass index (BMI) [Ratio] 27.26 kg/m2 Dante Kim MD Work Phone: [facility] 10-31-2021 19:13-0400 Body temperature 98.49 [degF] Dante Kim MD Work Phone: [facility] 10-31-2021 19:13-0400 Body weight 86.18 kg Dante Kim MD Work Phone: [facility] 10-29-2021 07:38-0400 Body temperature 97.81 [degF] Lisa Michelle DO Work Phone: [facility] 10-29-2021 07:38-0400 Diastolic blood pressure 79 mm[Hg] Lisa Michelle DO Work Phone: [facility] 10-29-2021 07:38-0400 Heart rate 80 /min Lisa Michelle DO Work Phone: [facility] 10-29-2021 07:38-0400 Respiratory rate 18 /min Lisa Michelle DO Work Phone: [facility] 10-29-2021 07:38-0400 SaO2% (BldA) [Mass fraction] 96 % Lisa Michelle DO Work Phone: [facility] 10-29-2021 07:38-0400 Systolic blood pressure 123 mm[Hg] Lisa Michelle DO Work Phone: [facility] 10-25-2021 13:55-0400 Body height 170.2 cm Lisa Michelle DO Work Phone: [facility] 10-21-2021 00:57-0400 Body mass index (BMI) [Ratio] 37.58 kg/m2 iLsa Michelle DO Work Phone: [facility] 10-21-2021 00:57-0400 Body weight 108.86 kg Lisa Michelle DO Work Phone: [facility] 07-13-2020 13:21-0500 BMI (Body Mass Index) 40.47 kg/m2 Monika Stlaey [facility] Work Phone: 07-13-2020 13:21-0500 Body Temperature 98 [degF] Monika Staley [facility] Work Phone: 07-13-2020 13:21-0500 Body weight 124.31 kg Monika Staley [facility] Work Phone: 07-13-2020 13:21-0500 BP Diastolic 78 mm[Hg] Monika Staley [facility] Work Phone: 07-13-2020 13:21-0500 BP Systolic 138 mm[Hg] Monika Staley [facility] Work Phone: 07-13-2020 13:21-0500 BSA (Body Surface Area) 2.36 m2 Monika Staley [facility] Work Phone: 04-13-2020 15:33-0500 BMI (Body Mass Index) 40.32 kg/m2 [facility] Work Phone: 04-13-2020 15:33-0500 Body weight 123.83 kg [facility] Work Phone: 04-13-2020 15:33-0500 BP Diastolic 82 mm[Hg] [facility] Work Phone: Comment on above: Location: [facility]; Position: Sitting 04-13-2020 15:33-0500 BP Systolic 145 mm[Hg] Wingblayne [facility] Work Phone: Comment on above: Location: [facility]; Position: Sitting 04-13-2020 15:33-0500 BSA (Body Surface Area) 2.36 m2 Wingblayne R[facility] Work Phone: 04-13-2020 [...] (BMI) [Ratio] 39.28 kg/m2 Monika Staley MD FE-Ljopecyqxh-Bnq [facility] [address] [place] Work Phone: 01-20-2020 16:39-0400 Body surface area Derived from formula 2.33 m2 Monika Staley MD LI-Vclymuyjos-Tdp [facility] [address] [place] Work Phone: 01-20-2020 16:39-0400 Body weight 120.66 kg Monika Staley MD MP-Cardiolog y-Med [facility] [address] [place] Work Phone: 01-20-2020 16:39-0400 Diastolic blood pressure 84 mm[Hg] Monika Staley MD HL-Amqqwaahmm-Wdi [facility] [address] [place] Work Phone: Comment on above: Location: [facility]; Position: Sitting 01-20-2020 16:39-0400 Heart rate 80 /min Monika Staley MD MP-Cardiolog y-Med [facility] [address] [place] Work Phone: 01-20-2020 16:39-0400 SaO2% (BldA) [Mass fraction] 100 % Monika Staley MD [facility]-Mljcemxrlb-Toj [address] [place] Work Phone: Comment on above: Source: 01-20-2020 16:39-0400 Systolic blood pressure 144 mm[Hg] Monika Staley MD [facility]-Yldulbkxge-Whw [address] [place] Work Phone: Comment on above: Location: [facility]; Position: Sitting 11-06-2019 15:29-0400 BMI (Body Mass Index) 38.31 kg/m2 Monika Staley [facility] Work Phone: 11-06-2019 15:29-0400 Body Temperature 97.6 [degF] Monika Staley [facility] Work Phone: 11-06-2019 15:29-0400 Body weight 117.66 kg Monika Staley [facility] Work Phone: 11-06-2019 15:29-0400 BP Diastolic 62 mm[Hg] Monika Staley [facility] Work Phone: 11-06-2019 15:29-0400 BP Systolic 140 mm[Hg] Monika Staley [facility] Work Phone: 11-06-2019 15:29-0400 BSA (Body Surface Area) 2.31 m2 Monika Staley [facility] Work Phone: 11-06-2019 15:29-0400 Height 175.26 cm Monika Staley [facility] Work Phone: Encounters Encounter Date Encounter Type Care Provider Facility Start: 12-29-2024 ambulatory Carlos Lópezsaros OLS Faci lity:[facility] Start: 12-26-2024 ambulatory Mahaveer Mukka flash OLS Facility:[facility] Start: 12-25-2024 ambulatory Mahaveer Mukka flash OLS Facility:[facility] Start: 12-24-2024 ambulatory Peter Katsaros OLS Faci lity:[facility] Start: 12-22-2024 ambulatory Mahaveer Mukka flash OLS Facility:[facility] Start: 12-18-2024 ambulatory Mahaveer Mukka flash OLS Facility:[facility] Start: 12-15-2024 ambulatory Mahaveer Mukka flash OLS Facility:[facility] Start: 12-11-2024 ambulatory Peter Katsaros OLS Faci lity:[facility] Start: 12-08-2024 ambulatory Mahaveer Mukka flash OLS Facility:[facility] Start: 12-04-2024 ambulatory Mahaveer Mukka flash OLS Facility:[facility] Start: 12-02-2024 ambulatory Mahaveer Mukka flash OLS Facility:[facility] Start: 12-01-2024 ambulatory Peter Katsaros OLS Faci lity:[facility] Start: 11-28-2024 ambulatory Peter Katsaros OLS Faci lity:[facility] Start: 11-27-2024 ambulatory Mahaveer Mukka flash OLS Facility:[facility] Start: 11-24-2024 ambulatory Mahaveer Mukka flash OLS Facility:[facility] Start: 11-20-2024 [facility] Start: 11-17-2024 [facility] flash OLS Facility:[facility] Start: 11-13-2024 [facility] Start: 11-10-2024 [facility] Start: 11-06-2024 [facility]ulatory [facility] Start: 11-03-2024 ambulatory Carlos Cavazos OLS Faci lity:[facility] Start: 10-30-2024 [facility] Start: 10-30-2024 Registered Referred [facility] [employer] Start: 10-27-2024 [facility] Start: 10-27-2024 Registered Referred Karon casillas MD -[employer] Start: 10-23-2024 [facility]ulatory [facility] Start: 10-23-2024 Registered Referred [facility] [employer] Start: 10-20-2024 ambulatory Karon elisa flash OLS Facility:[facility] Start: 10-20-2024 Registered Referred [facility] [employer] Start: 10-16-2024 [facility]ulatory [facility] Start: 10-16-2024 Registered Referred Kraon [facility] [employer] Start: 10-13-2024 ambulatory Carlos NOVAK Faci lity:[facility] Start: 10-13-2024 Registered Referred Carlos Cavazos - [facility] Start: 10-09-2024 [facility] Start: 10-09-2024 Registered Referred [facility] [employer] Start: 10-06-2024 ambulatory Carlos Cavazos OLS Faci lity:[facility] Start: 10-06-2024 Registered Referred Carlos Maribelkameron - [facility] [employer] Start: 10-02-2024 [facility]ulatory [facility] Facility:[facility] Start: 10-02-2024 Registered Referred Karon casillas MD -[employer] Start: 09-30-2024 End: 09-30-[address] Monika Staley MD Work Phone: [facility] Work Phone: Start: 09-30-2024 End: 09-30-2024 Departed Referred Karon Corrales MD -[facility] [employer] Start: 09-30-2024 Registered Referred Karon casillas MD -[facility] [employer] Start: 09-30-2024 End: 09-30-2024 [facility] Start: 09-25-2024 ambulatory [facility] Facility:[facility] Start: 09-25-2024 Registered Referred Karon casillas MD -[facility] [employer] Start: 09-22-2024 End: 09-22-[address] Monika Staley MD Work Phone: -[facility] [employer] Start: 09-22-2024 End: 09-22-2024 Departed Referred Karon Corrales MD -[facility] [employer] Start: 09-22-2024 Registered Referred Karon casillas MD -[facility] [place] [employer] Start: 09-22-2024 End: 09-22-2024 [facility] Start: 09-18-2024 End: 09-18-[address] Monika Staley MD Work Phone: -[employer] Start: 09-18-2024 End: 09-18-2024 Departed Referred Karon Corrales MD -[employer] Start: 09-18-2024 Registered Referred Karon casillas MD -[employer] Start: 09-18-2024 End: 09-18-2024 ambulatory Karon Corrales OLS Facility:[facility] Start: 09-15-2024 End: 09-15-[address] Monika Staley MD Work Phone: [facility] Work Phone: Start: 09-15-2024 End: 09-15-2024 Departed Referred Carlos Cavazos -[employer] Start: 09-15-2024 Registered Referred Carlos Cavazos - [employer] Start: 09-15-2024 End: 09-15-2024 ambulatory Carlos Cavazos OLS Facility:[facility] Start: 09-11-2024 [facility]ulatory [facility] Facility[facility] Start: 09-11-2024 Registered Referred Karon casillas MD -[employer] Start: 09-08-2024 End: 09-08-[address] Monika Staley MD Work Phone: [facility] Work Phone: Start: 09-08-2024 End: 09-08-2024 Departed Referred Karon Corrales MD -[employer] Start: 09-08-2024 Registered Referred Karon casillas MD -[employer] Start: 09-08-2024 End: 09-08-2024 ambulatory Karon Corrales OLS Facility:[facility] Start: 09-04-2024 End: 09-04-2024 Departed Referred Carlos Cavazos -[employer] Start: 09-04-2024 Registered Referred Carlos Cavazos - [employer] Start: 09-04-2024 End: 09-04-2024 ambulatory Carlos Cavazos OLS Facility:[facility] Start: 09-01-2024 End: 09-01-[address] Monika Staley MD Work Phone: [facility] Work Phone: Start: 09-01-2024 End: 09-01-2024 Departed Referred Carlos Cavazos -[facility] [employer] Start: 09-01-2024 Registered Referred Carlos Cavazos - [employer] Start: 09-01-2024 End: 09-01-2024 ambulatory Carlos Cavazos OLS Facility:[facility] Start: 08-28-2024 End: 08-28-[address] Monika Staley MD Work Phone: [facility] Work Phone: Start: 08-28-2024 End: 08-28-2024 Departed Referred Carlos Cavazos -[employer] Start: 08-28-2024 Registered Referred Carlos Abdelrahmanviri - [employer] Start: 08-28-2024 End: 08-28-2024 ambulatory Carlos Maribelkameron OLS Facility:[facility] Start: 08-25-2024 End: 08-25-[address] Monika Staley MD Work Phone: [facility] Work Phone: Start: 08-25-2024 End: 08-25-2024 Departed Referred Karon Corrales MD -[employer] Start: 08-25-2024 Registered Referred Karon casillas MD -[employer] Start: 08-25-2024 End: 08-25-2024 ambulatory Karon NOVAK Facility:[facility] Start: 08-21-2024 End: 08-21-[address] Monika Staley MD Work Phone: [facility] Work Phone: Start: 08-21-2024 End: 08-21-2024 Departed Referred Karon Corrales MD -[employer] Start: 08-21-2024 Registered Referred [facility] [employer] Start: 08-21-2024 End: 08-21-2024 ambulatory Karon NOVAK Facility:[facility] Start: 08-18-2024 End: 08-18-[address] Monika Staley MD Work Phone: [facility] Work Phone: Start: 08-18-2024 End: 08-18-2024 Departed Referred Karon Corrales MD -[employer] Start: 08-18-2024 Registered Referred Karon casillas MD -[employer] Start: 08-18-2024 End: 08-18-2024 ambulatory Karon NOVAK Facility:[facility] Start: 08-14-2024 End: 08-14-[address] Monika Staley MD Work Phone: [facility] Work Phone: Start: 08-14-2024 End: 08-14-2024 Departed Referred [facility] [employer] Start: 08-14-2024 Registered Referred Karon casillas MD -[employer] Start: 08-14-2024 End: 08-14-2024 ambulatory Karon NOVAK Facility:[facility] Start: 08-11-2024 End: 08-11-2024 Departed Referred Karon Corrales MD -[employer] Start: 08-11-2024 Registered Referred [facility] [employer] Start: 08-11-2024 End: 08-11-2024 ambulatory Karon Corrales OLS Facility:[facility] Start: 08-07-2024 End: 08-07-2024 Departed Referred [facility] [employer] Start: 08-07-2024 Registered Referred Carlos Reeder [employer] Start: 08-07-2024 End: 08-07-2024 ambulatory Carlos Cavazos OLS Facility:[facility] Start: 08-04-2024 End: 08-04-[address] Monika Staley MD Work Phone: [facility] Work Phone: Start: 08-04-2024 End: 08-04-2024 Departed Referred Carlos Cavazos -[employer] Start: 08-04-2024 Registered Referred Carlos Abdelrahmanviri - [employer] Start: 08-04-2024 End: 08-04-2024 ambulatory Carlos Cavazos OLS Facility:[facility] Start: 07-31-2024 End: 07-31-[address] Monika Staley MD Work Phone: [facility] Work Phone: Start: 07-31-2024 End: 07-31-2024 Departed Referred Karon Corrales MD -[facility] [place] [employer] Start: 07-31-2024 Registered Referred Karon casillas MD -[facility] [employer] Start: 07-31-2024 End: 07-31-2024 ambulatory Karon NOVAK Facility:[facility] Start: 07-28-2024 End: 07-28-[address] Monika Staley MD Work Phone: [facility] Work Phone: Start: 07-28-2024 End: 07-28-2024 Departed Referred Karon Corrales MD -[employer] Start: 07-28-2024 Registered Referred Karon casillas MD -[employer] Start: 07-28-2024 End: 07-28-2024 ambulatory Karon NOVAK Facility:[facility] Start: 07-25-2024 End: 07-25-[address] Monika Staley MD Work Phone: [facility] Work Phone: Start: 07-25-2024 End: 07-25-2024 Departed Referred Carlos Cavazos -[facility] [employer] Start: 07-25-2024 Registered Referred Carlos Cavazos - [employer] Start: 07-24-2024 End: 07-25-[address] Monika Staley MD Work Phone: [facility] Work Phone: Start: 07-24-2024 End: 07-24-2024 Departed Referred Karon Corrales MD -[facility] [employer] Start: 07-24-2024 Registered Referred Karon casillas MD -[facility] [employer] Start: 07-24-2024 End: 07-24-2024 ambulatory Karon NOVAK Facility:[facility] Start: 07-21-2024 End: 07-21-[address] Monika Staley MD Work Phone: [facility] Work Phone: Start: 07-21-2024 End: 07-21-2024 Departed Referred [facility] [employer] Start: 07-21-2024 Registered Referred [facility] [employer] Start: 07-21-2024 End: 07-21-2024 ambulatory Karon NOVAK Facility:[facility] Start: 07-17-2024 End: 07-17-[address] Monika Staley MD Work Phone: [facility] Work Phone: Start: 07-17-2024 End: 07-17-2024 Departed Referred [facility] [employer] Start: 07-17-2024 Registered Referred [facility] [employer] Start: 07-17-2024 End: 07-17-2024 ambulatory Karon NOVAK Facility:[facility] Start: 07-14-2024 End: 07-14-[address] Monika Staley MD Work Phone: [facility] Work Phone: Start: 07-14-2024 End: 07-14-2024 Departed Referred Carlos Cavazos -[employer] Start: 07-14-2024 Registered Referred Carlos Lópezsaviri - [employer] Start: 07-14-2024 End: 07-14-2024 ambulatory Carlos Cavazos OLS Facility:[facility] Start: 07-11-2024 End: 07-11-[address] Monika Staley MD Work Phone: [facility] Work Phone: Start: 07-11-2024 End: 07-11-2024 Departed Referred Carlos Lópezsaviri -[employer] Start: 07-11-2024 Registered Referred Carlos Maribelsaros - [employer] Start: 07-11-2024 End: 07-11-2024 ambulatory Carlos NOVAK Facility:[facility] Start: 07-07-2024 End: 07-07-[address] Monika Staley MD Work Phone: [facility] Work Phone: Start: 07-07-2024 End: 07-07-2024 Departed Referred Kaorn Corrales MD -[employer] Start: 07-07-2024 [facility] Start: 07-07-2024 End: 07-07-2024 ambulatory Karon NOVAK Facility:[facility] Start: 07-03-2024 End: 07-03-[address] Monika Staley MD Work Phone: [facility] Work Phone: Start: 07-03-2024 End: 07-03-2024 Departed Referred Kvng Crisostomo MD -[facility] [employer] Start: 07-03-2024 Registered Referred Kvng Crisostomo MD -[employer] Start: 07-03-2024 End: 07-03-2024 ambulatory Kvng NOVAK Facility:[facility] Start: 06-30-2024 End: 06-30-[address] Monika Staley MD Work Phone: [facility] Work Phone: Start: 06-30-2024 End: 06-30-2024 Departed Referred Kvng Crisostomo MD -[employer] Start: 06-30-2024 Registered Referred Kvng Crisostomo MD -[employer] Start: 06-30-2024 End: 06-30-2024 ambulatory Kvng NOVAK Facility:[facility] Start: 06-26-2024 ambulatory Kvng NOVAK Fac ility:[facility] Start: 06-26-2024 Registered Referred Kvng Crisostomo MD -[facility] [employer] Start: 06-23-2024 End: 06-23-[address] Monika Staley MD Work Phone: [facility] Work Phone: Start: 06-23-2024 End: 06-23-2024 Departed Referred Carlos Cavazos -[employer] Start: 06-23-2024 Registered Referred Carlos Cavazos - [employer] Start: 06-23-2024 End: 06-23-2024 ambulatory Carlos NOVAK Facility:[facility] Start: 06-19-2024 End: 06-19-[address] Monika Staley MD Work Phone: [facility] Work Phone: Start: 06-19-2024 End: 06-19-2024 Departed Referred Kvng Crisostomo MD -[facility] [employer] Start: 06-19-2024 Registered Referred Kvng Crisostomo MD -[employer] Start: 06-19-2024 End: 06-19-2024 ambulatory Kvng NOVAK Facility:[facility] Start: 06-16-2024 End: 06-16-[address] Monika Staley MD Work Phone: [facility] Work Phone: Start: 06-16-2024 End: 06-16-2024 Departed Referred Kvng Crisostomo MD -[employer] Start: 06-16-2024 Registered Referred Kvng Crisostomo MD -[employer] Start: 06-16-2024 End: 06-16-2024 ambulatory Kvng NOVAK Facility:[facility] Start: 06-12-2024 End: 06-12-[address] Monika Staley MD Work Phone: [facility] Work Phone: Start: 06-12-2024 End: 06-12-2024 Departed Referred Kvng Crisostomo MD -[employer] Start: 06-12-2024 Registered Referred Kvng Crisostomo MD -[employer] Start: 06-12-2024 End: 06-12-2024 ambulatory Kvng NOVAK Facility:[facility] Start: 06-09-2024 End: 06-09-[address] Monika Staley MD Work Phone: [facility] Work Phone: Start: 06-09-2024 End: 06-09-2024 Departed Referred Carlos Cavazos -[employer] Start: 06-09-2024 Registered Referred Carlos Cavazos - [employer] Start: 06-09-2024 End: 06-09-2024 ambulatory Carlos NOVAK Facility:[facility] Start: 06-05-2024 End: 06-05-[address] Monika Staley MD Work Phone: [facility] Work Phone: Start: 06-05-2024 End: 06-05-2024 Departed Referred Kvng Crisostomo MD -[facility] [employer] Start: 06-05-2024 End: 06-05-2024 ambulatory Kvng NOVAK Facility:[facility] Start: 06-02-2024 End: 06-02-[address] Monika Staley MD Work Phone: [facility] Work Phone: Start: 06-02-2024 End: 06-02-2024 Departed Referred Kvng Crisostomo MD -[facility] [employer] Start: 06-02-2024 Registered Referred Kvng Crisostomo MD -[employer] Start: 06-02-2024 End: 06-02-2024 ambulatory Kvng NOVAK Facility:[facility] Start: 05-29-2024 End: 05-29-[address] Monika Staley MD Work Phone: [facility] Work Phone: Start: 05-29-2024 End: 05-29-2024 Departed Referred Kvng Crisostomo MD -[facility] [employer] Start: 05-29-2024 Registered Referred Kvng Crisostomo MD -[employer] Start: 05-29-2024 End: 05-29-2024 ambulatory Kvgn NOVAK Facility:[facility] Start: 05-26-2024 End: 05-26-[address] Monika Staley MD Work Phone: [facility] Work Phone: Start: 05-26-2024 End: 05-26-2024 Departed Referred Carlos Cavazos -[employer] Start: 05-26-2024 Registered Referred Carlos Reeder [employer] Start: 05-26-2024 End: 05-26-2024 ambulatory Carlos NOVAK Facility:[facility] Start: 05-22-2024 ambulatory Kvng NOVAK Fac ility:[facility] Start: 05-22-2024 Registered Referred Kvng Crisostomo MD -[employer] Start: 05-20-2024 End: 05-20-2024 Departed Referred Kvng Crisostomo MD -[employer] Start: 05-19-2024 End: 05-20-2024 ambulatory Kvng NOVAK Facility:[facility] Start: 05-19-2024 Registered Referred Kvng Crisostomo MD -[employer] Start: 05-15-2024 End: 05-15-2024 Departed Referred Kvng Crisostomo MD -[employer] Start: 05-15-2024 End: 05-15-2024 ambulatory Kvng NOVAK Facility:[facility] Start: 05-12-2024 End: 05-12-2024 Departed Referred Carlos Cavazos -[employer] Start: 05-12-2024 End: 05-12-2024 ambulatory Carlos NOVAK Facility:[facility] Start: 05-09-2024 End: 05-09-2024 Departed Referred Kvng Crisostomo MD -[employer] Start: 05-09-2024 End: 05-09-2024 ambulatory Kvng NOVAK Facility:[facility] Start: 05-08-2024 End: 05-08-2024 Departed Referred Kvng Crisostomo MD -[employer] Start: 05-08-2024 End: 05-08-2024 ambulatory Kvng NOVAK Facility:[facility] Start: 05-05-2024 End: 05-05-2024 Departed Referred Kvng Crisostomo MD -[employer] Start: 05-05-2024 End: 05-05-2024 ambulatory Kvng NOVAK Facility:[facility] Start: 05-01-2024 End: 05-01-2024 Departed Referred Kvng Crisostomo MD -[employer] Start: 05-01-2024 End: 05-01-2024 ambulatory Kvng NOVAK Facility:[facility] Start: 04-28-2024 End: 04-28-2024 Departed Referred Carlos Cavazos -[employer] Start: 04-28-2024 End: 04-28-2024 ambulatory Carlos NOVAK Facility:[facility] Start: 04-24-2024 End: 04-24-2024 Departed Referred Kvng Crisostomo MD -[employer] Start: 04-24-2024 End: 04-24-2024 ambulatory Kvng NOVAK Facility:[facility] Start: 04-21-2024 End: 04-21-2024 Departed Referred Carlos Cavazos -[employer] Start: 04-21-2024 End: 04-21-2024 ambulatory Carlos NOVAK Facility:[facility] Start: 04-17-2024 ambulatory Kvng NOVAK Fac ility:[facility] Start: 04-17-2024 Registered Ref[facility] [employer] Start: 04-14-2024 ambulatory Kvng NOVAK Fac ility:[facility] Start: 04-14-2024 Registered Referred Kvng Crisostomo MD -[employer] Start: 04-10-2024 End: 04-10-2024 Departed Referred Kvng Crisostomo MD -[employer] Start: 04-10-2024 End: 04-10-2024 ambulatory Kvng NOVAK Facility:[facility] Start: 04-07-2024 End: 04-07-2024 Departed Referred Carlos Cavazos -[employer] Start: 04-07-2024 End: 04-07-2024 ambulatory Carlos NOVAK Facility:[facility] Start: 04-04-2024 ambulatory Kvng NOVAK Fac ility:[facility] Start: 04-04-2024 Registered Referred Kvng Crisostomo MD -[employer] Start: 03-31-2024 End: 03-31-2024 Departed Referred Carlos Cavazos -[employer] Start: 03-31-2024 End: 03-31-2024 ambulatory Carlos NOVAK Facility:[facility] Start: 03-27-2024 End: 03-27-2024 Departed Referred [facility] Start: 03-27-2024 End: 03-27-2024 ambulatory Shiela Luís Facility:[facility] Start: 03-24-2024 End: 03-24-2024 Departed Referred Kvng Crisostomo MD -[employer] Start: 03-24-2024 End: 03-24-2024 ambulatory Kvng NOVAK Facility:[facility] Start: 03-20-2024 End: 03-20-2024 Departed Referred [facility] Start: 03-20-2024 End: 03-20-[facility] Start: 03-19-2024 End: 03-19-2024 Departed Referred Kvng Crisostomo MD -[employer] Start: 03-19-2024 End: 03-19-2024 ambulatory Kvng NOVAK Facility:[facility] Start: 03-18-2024 End: 03-18-2024 Departed Referred [facility] Start: 03-18-2024 End: 03-18-2024 ambulatory [facility] Facility:[facility] Start: 03-17-2024 End: 03-17-2024 Departed Referred [facility] Start: 03-17-2024 End: 03-17-2024 ambulatory [facility] Facility:[facility] Start: 03-14-2024 End: 03-14-2024 Departed Referred Carlos Cavazos [facility] Start: 03-14-2024 End: 03-14-2024 ambulatory Carlos NOVAK Facility:[facility] Start: 03-13-2024 End: 03-13-2024 Departed Referred [facility] Start: 03-13-2024 End: 03-13-2024 ambulatory [facility] Facility:[facility] Start: 03-10-2024 End: 03-10-2024 ambulatory [facility] Facility:[facility] Start: 03-06-2024 End: 03-06-2024 ambulatory [facility] Facility:[facility] Start: 03-03-2024 End: 03-03-2024 ambulatory [facility] Facility:[facility] Start: 02-28-2024 End: 02-28-2024 ambulatory [facility] Facility:[facility] Start: 02-25-2024 End: 02-25-2024 ambulatory Carlos Cavazos OLS Facility:[facility] Start: 02-21-2024 End: 02-21-2024 ambulatory [facility] Facility:[facility] Start: 02-18-2024 End: 02-18-2024 ambulatory [facility] Facility:[facility] Start: 02-14-2024 End: 02-14-2024 ambulatory [facility] Facility:[facility] Start: 02-12-2024 End: 02-12-2024 ambulatory Carlos NOVAK Facility:[facility] Start: 02-11-2024 End: 02-11-2024 ambulatory [facility] Facility:[facility] Start: 02-08-2024 End: 02-08-2024 ambulatory Carlos NOVAK Facility:[facility] Start: 02-07-2024 End: 02-07-2024 ambulatory Carlos NOVAK Facility:[facility] Start: 02-04-2024 End: 02-04-2024 ambulatory Carlos NOVAK Facility:[facility] Start: 02-01-2024 ambulatory Carlos Cavazos OLS Faci lity:[facility] Start: 01-30-2024 End: 01-30-2024 ambulatory Carlos Katsaros SCARLET Facility:[facility] Start: 01-29-2024 End: 01-29-2024 ambulatory [facility] Facility:[facility] Start: 01-21-2024 End: 01-21-2024 ambulatory Calros Lópezsaviri NOVAK Facility:[facility] Start: 01-14-2024 End: 01-14-2024 ambulatory Carlos Lópezsaviri OLS Facility:[facility] Start: 01-11-2024 ambulatory Carlos Maribelviri NOVAK Faci lity:[facility] Start: 01-10-2024 End: 01-10-2024 [facility]ulatory [facility] Start: 01-08-2024 End: 01-08-2024 ambulatory Carlos Kenny NOVAK Facility:[facility] Start: 01-02-2024 End: 01-02-2024 ambulatory Carlos Maribelkameron NOVAK Facility:[facility] Start: 09-13-2023 End: 09-13-2023 ambulatory [facility] Start: 09-13-2023 End: 09-13-2023 Office outpatient visit 25 minutes Rebecca Buck MD Work Phone: [facility] U[facility] Comment on above: Left flank pain (Christina magui Dx); BPH with urinary obstruction; History of kidney stones Start: 09-06-2023 End: 09-07-2023 ambulatory [facility] Start: 09-06-2023 End: 09-06-2023 Subsequent hospital visit by physician Rebecca Buck MD Work Phone: [facility] CT Imaging Comment on above: Left flank pain; Calculus of ureter Start: 08-31-2023 ambulatory Eloise Stern RN [facility] Clinical Communication Start: 08-31-2023 [facility] Start: 08-21-2023 Telephone encounter Rebecca Buck MD Work Phone: [facility] Comment on above: CT appt Boaz advice Start: 08-21-2023 Registered Referred [facility] Start: 08-13-2023 End: 08-13-2023 ambulatory [facility] Start: 08-13-2023 End: 08-13-2023 Office outpatient new 45 minutes Rebecca Buck MD Work Phone: [facility] Comment on above: Left flank pain (Christina magui Dx); Calculus of ureter; Disease of prostate; BPH with urinary obstruction Start: 08-03-2023 End: 08-03-2023 ambulatory [facility] Work Phone: Start: 08-03-2023 End: 08-03-2023 [facility] Start: 07-20-2023 End: 07-20-2023 ambulatory [facility] Work Phone: Start: 07-20-2023 End: 07-20-2023 [facility] Start: 07-20-2023 [facility] Start: 07-18-2023 End: 07-18-2023 ambulatory [facility] Work Phone: Start: 07-18-2023 End: 07-18-2023 [facility] Start: 07-18-2023 [facility] Start: 07-16-2023 End: 07-16-2023 ambulatory [facility] Work Phone: Start: 07-16-2023 End: 07-16-2023 [facility] Start: 07-16-2023 [facility] Start: 07-13-2023 End: 07-13-2023 ambulatory [facility] Work Phone: Start: 07-13-2023 End: 07-13-2023 [facility] Start: 07-13-2023 [facility] Start: 07-12-2023 End: 07-12-2023 ambulatory [facility] Work Phone: Start: 07-12-2023 End: 07-12-2023 [facility] Start: 07-12-2023 [facility] Start: 07-05-2023 End: 07-05-2023 ambulatory [facility] Work Phone: Start: 07-05-2023 End: 07-05-2023 [facility] Start: 07-05-2023 [facility] Start: 07-02-2023 [facility] Start: 06-28-2023 End: 06-28-2023 ambulatory [facility] Work Phone: Start: 06-28-2023 End: 06-28-2023 [facility] Start: 06-28-2023 [facility] Start: 06-25-2023 Telephone encounter Rebecca Buck MD Work Phone: [facility] Start: 06-25-2023 End: 06-25-2023 ambulatory [facility] Work Phone: Start: 06-25-2023 End: 06-25-2023 [facility] Start: 06-25-2023 [facility] Start: 06-21-2023 End: 06-21-2023 ambulatory [facility] Work Phone: Start: 06-21-2023 End: 06-21-2023 [facility] Start: 06-21-2023 [facility] Start: 06-13-2023 End: 06-13-2023 ambulatory [facility] Work Phone: Start: 06-13-2023 End: 06-13-2023 [facility] Start: 06-06-2023 End: 06-06-2023 ambulatory [facility] Work Phone: Start: 06-06-2023 End: 06-06-2023 [facility] Start: 01-31-2024 [facility] Start: 05-23-2023 End: 05-23-2023 ambulatory [facility] Work Phone: Start: 05-23-2023 End: 05-23-2023 Departed Referred [facility] Start: 05-09-2023 End: 05-09-2023 Departed Referred [facility] Start: 05-09-2023 Registered Referred [facility] Start: 04-23-2023 End: 04-23-2023 [facility] Start: 04-09-2023 End: 04-09-2023 ambulatory [facility] Work Phone: Start: 04-09-2023 End: 04-09-2023 [facility] Start: 04-09-2023 Registered Referred [facility] Start: 04-02-2023 End: 04-02-2023 ambulatory [facility] Work Phone: Start: 04-02-2023 End: 04-02-2023 Departed Referred [facility] Start: 04-02-2023 Registered Referred [facility] Start: 03-26-2023 End: 03-26-2023 ambulatory [facility] Work Phone: Start: 03-26-2023 End: 03-26-2023 [facility] Start: 03-26-2023 [facility] Start: 03-22-2023 End: 03-22-2023 ambulatory [facility] Work Phone: Start: 03-22-2023 End: 03-22-2023 [facility] Start: 03-22-2023 Registered Referred [facility] Start: 03-08-2023 End: 03-08-2023 ambulatory [facility] Work Phone: Start: 03-08-2023 End: 03-08-2023 Departed Referred [facility] Start: 02-22-2023 End: 02-22-2023 ambulatory [facility] Work Phone: Start: 02-22-2023 End: 02-22-2023 Departed Referred [facility] Start: 02-22-2023 Registered Referred [facility] Start: 02-15-2023 End: 02-15-2023 ambulatory [facility] Work Phone: Start: 02-15-2023 End: 02-15-2023 [facility] Start: 02-15-2023 [facility] Start: 02-08-2023 End: 02-08-2023 ambulatory [facility] Work Phone: Start: 02-08-2023 End: 02-08-2023 [facility] Start: 01-31-2023 End: 01-31-2023 ambulatory [facility] Work Phone: Start: 01-31-2023 End: 01-31-2023 Departed Referred [facility] Start: 01-31-2023 Registered Referred [facility] Start: 01-29-2023 End: 01-29-2023 Departed Referred [facility] Start: 01-29-2023 Registered Referred [facility] Start: 01-26-2023 End: 01-26-2023 [facility] Start: 01-26-2023 Registered Referred [facility] Start: 01-24-2023 End: 01-24-2023 [facility] Start: 01-24-2023 [facility] Start: 01-22-2023 End: 01-22-2023 ambulatory [facility] Work Phone: Start: 01-22-2023 End: 01-22-2023 [facility] Start: 01-22-2023 [facility] Start: 01-10-2023 End: 01-10-2023 ambulatory [facility] Work Phone: Start: 01-10-2023 End: 01-10-2023 [facility] Start: 01-10-2023 [facility] Start: 12-27-2022 End: 12-27-2022 ambulatory [facility] Work Phone: Start: 12-27-2022 End: 12-27-2022 [facility] Start: 12-27-2022 [facility] Start: 12-21-2022 End: 12-21-2022 ambulatory [facility] Work Phone: Start: 12-21-2022 End: 12-21-2022 [facility] Start: 12-21-2022 [facility] Start: 12-14-2022 End: 12-14-2022 ambulatory [facility] Work Phone: Start: 12-14-2022 End: 12-14-2022 [facility] Start: 12-14-2022 [facility] Start: 12-07-2022 End: 12-07-2022 ambulatory [facility] Work Phone: Start: 12-07-2022 End: 12-07-2022 [facility] Start: 12-07-2022 Registered Referred [facility] Start: 11-24-2022 End: 11-24-2022 ambulatory [facility] Work Phone: Start: 11-24-2022 End: 11-24-2022 [facility] Start: 11-24-2022 [facility] Start: 11-23-2022 End: 11-23-2022 ambulatory [facility] Work Phone: Start: 11-23-2022 End: 11-23-2022 [facility] Start: 11-23-2022 [facility] Start: 11-22-2022 End: 11-22-2022 ambulatory [facility] Work Phone: Start: 11-22-2022 End: 11-22-2022 Departed Referred [facility] Start: 11-22-2022 [facility] Start: 11-09-2022 End: 11-09-2022 ambulatory [facility] Work Phone: Start: 11-09-2022 End: 11-09-2022 Departed Referred [facility] Start: 11-09-2022 Registered Referred [facility] Start: 10-26-2022 End: 10-26-2022 Departed Referred [facility] Start: 10-26-2022 Registered Referred [facility] Start: 10-12-2022 End: 10-12-2022 ambulatory [facility] Work Phone: Start: 10-12-2022 End: 10-12-2022 [facility] Start: 10-12-2022 Registered Referred [facility] Start: 10-05-2022 End: 10-05-2022 [facility] Start: 10-05-2022 [facility] Start: 09-28-2022 End: 09-28-2022 ambulatory [facility] Work Phone: Start: 09-28-2022 End: 09-28-2022 [facility] Start: 09-14-2022 End: 09-14-2022 [facility] Start: 08-31-2022 End: 08-31-2022 [facility] Start: 08-31-2022 [facility] Start: 08-23-2022 End: 08-23-2022 ambulatory [facility] Work Phone: Start: 08-23-2022 End: 08-23-2022 [facility] Start: 08-23-2022 [facility] Start: 08-17-2022 End: 08-17-2022 ambulatory [facility] Work Phone: Start: 08-17-2022 End: 08-17-2022 [facility] Start: 08-17-2022 [facility] Start: 08-14-2022 End: 08-14-2022 ambulatory [facility] Work Phone: Start: 08-14-2022 End: 08-14-2022 [facility] Start: 08-14-2022 Registered Referred [facility] Start: 07-31-2022 End: 07-31-2022 ambulatory [facility] Work Phone: Start: 07-31-2022 End: 07-31-2022 Departed Referred [facility] Start: 07-31-2022 Registered Referred [facility] Start: 07-24-2022 End: 07-24-2022 ambulatory [facility] Work Phone: Start: 07-24-2022 End: 07-24-2022 [facility] Start: 07-24-2022 Registered Referred [facility] Start: 07-20-2022 End: 07-20-2022 [facility] Start: 07-20-2022 Registered Referred [facility] Start: 07-17-2022 End: 07-17-2022 Departed Referred [facility] Start: 07-17-2022 Registered Referred [facility] Start: 07-11-2022 Registered Referred [facility] Start: 07-10-2022 End: 07-10-2022 ambulatory [facility] Work Phone: Start: 07-10-2022 End: 07-10-2022 [facility] Start: 07-10-2022 [facility] Start: 07-03-2022 End: 07-03-2022 ambulatory [facility] Work Phone: Start: 07-03-2022 End: 07-03-2022 [facility] Start: 07-03-2022 [facility] Start: 06-27-2022 End: 06-27-2022 ambulatory [facility] Work Phone: Start: 06-27-2022 End: 06-27-2022 Departed Referred [facility] Start: 06-27-2022 Registered Referred [facility] Start: 06-13-2022 End: 06-13-2022 ambulatory [facility] Work Phone: Start: 06-13-2022 End: 06-13-2022 [facility] Start: 06-13-2022 Registered Referred [facility] Start: 06-06-2022 End: 06-06-2022 ambulatory [facility] Work Phone: Start: 06-06-2022 End: 06-06-2022 [facility] Start: 06-06-2022 [facility] Start: 05-30-2022 End: 05-30-2022 ambulatory [facility] Work Phone: Start: 05-30-2022 End: 05-30-2022 [facility] Start: 05-30-2022 Registered Referred [facility] Start: 05-16-2022 End: 05-16-2022 ambulatory [facility] Work Phone: Start: 05-16-2022 End: 05-16-2022 [facility] Start: 05-16-2022 [facility] Start: 05-02-2022 End: 05-02-2022 ambulatory [facility] Work Phone: Start: 05-02-2022 End: 05-02-2022 [facility] Start: 05-02-2022 [facility] Start: 04-27-2022 End: 04-27-2022 ambulatory [facility] Work Phone: Start: 04-27-2022 End: 04-27-2022 Departed Referred [facility] Start: 04-27-2022 Registered Referred [facility] Start: 04-26-2022 End: 04-26-2022 ambulatory [facility] Work Phone: Start: 04-26-2022 End: 04-26-2022 Departed Referred [facility] Start: 04-11-2022 End: 04-11-2022 ambulatory [facility] Work Phone: Start: 04-11-2022 End: 04-11-2022 Departed Referred [facility] Start: 03-28-2022 End: 03-28-2022 Departed Referred [facility] Start: 03-28-2022 Registered Referred [facility] Start: 03-23-2022 End: 03-23-2022 Departed Referred [facility] Start: 03-23-2022 Registered Referred [facility] Start: 03-16-2022 End: 03-16-2022 ambulatory [facility] Work Phone: Start: 03-16-2022 End: 03-16-2022 Departed Referred [facility] Start: 03-16-2022 Registered Referred [facility] Start: 03-09-2022 End: 03-09-2022 ambulatory [facility] Work Phone: Start: 03-09-2022 End: 03-09-2022 Departed Referred [facility] Start: 03-09-2022 Registered Referred [facility] Start: 03-06-2022 End: 03-06-2022 ambulatory [facility] Work Phone: Start: 03-06-2022 End: 03-06-2022 Departed Referred [facility] Start: 03-06-2022 [facility] Start: 03-02-2022 End: 03-03-2022 Emergency department patient visit UNKNOWN PROVIDER [facility] Start: 03-02-2022 End: 03-02-2022 Emergency department patient visit Lanette Munguia DO Work Phone: [facility] Emergency Dept Comment on above: Fall, initial encoun ter (Primary Dx); Anticoagulated Start: 02-20-2022 End: 02-20-2022 Departed Referred [facility] Start: 02-20-2022 Registered Referred [facility] Start: 02-13-2022 End: 02-13-2022 ambulatory [facility] Work Phone: Start: 02-13-2022 End: 02-13-2022 [facility] Start: 02-13-2022 [facility] Start: 02-06-2022 End: 02-06-2022 ambulatory [facility] Work Phone: Start: 02-06-2022 End: 02-06-2022 [facility] Start: 02-06-2022 [facility] Start: 01-30-2022 End: 01-30-2022 [facility] Start: 01-30-2022 [facility] Start: 01-26-2022 End: 01-26-2022 ambulatory [facility] Work Phone: Start: 01-26-2022 End: 01-26-2022 [facility] Start: 01-26-2022 [facility] Start: 01-19-2022 End: 01-19-2022 ambulatory [facility] Work Phone: Start: 01-19-2022 End: 01-19-2022 [facility] Start: 01-19-2022 Registered Referred [facility] Start: 01-17-2022 ambulatory [place] [facility] Start: 01-10-2022 ambulatory [facility] Start: 01-10-2022 End: 01-10-2022 ambulatory [facility] Work Phone: Start: 01-10-2022 End: 01-10-2022 Departed Referred [facility] Start: 01-10-2022 Registered Referred [facility] Start: 01-06-2022 AUDIT Monika Elias rt [facility]: [facility] Work Phone: Start: 01-05-2022 End: 01-05-2022 Departed Referred [facility] Start: 01-05-2022 Registered Referred [facility] Start: 12-30-2021 End: 12-30-2021 [facility] Start: 12-30-2021 Registered [facility] Start: 12-28-2021 End: 12-28-2021 ambulatory [facility] Work Phone: Start: 12-28-2021 End: 12-28-2021 [facility] Start: 12-28-2021 Registered [facility] Start: 12-26-2021 End: 12-26-2021 ambulatory [facility] Work Phone: Start: 12-26-2021 End: 12-26-2021 Departed Referred [facility] Start: 12-26-2021 [facility] Start: 12-22-2021 End: 12-22-2021 ambulatory [facility] Work Phone: Start: 12-22-2021 End: 12-22-2021 Departed Referred [facility] Start: 12-22-2021 Registered Referred [facility] Start: 12-22-2021 End: 12-22-2021 [facility] Start: 12-21-2021 End: 12-22-2021 Emergency department patient visit Sharon Gonzalez MD Work Phone: [facility] Emergency Dept Comment on above: Heel ulceration, lef t, with unspecified severity (HCC) (Primary Dx) Start: 12-19-2021 End: 12-19-2021 ambulatory [facility] Work Phone: Start: 12-19-2021 End: 12-19-2021 Departed Referred [facility] Start: 12-19-2021 Registered Referred [facility] Start: 12-12-2021 End: 12-12-2021 ambulatory [facility] Work Phone: Start: 12-12-2021 End: 12-12-2021 Departed Referred [facility] Start: 12-12-2021 Registered Referred [facility] Start: 12-08-2021 End: 12-08-2021 ambulatory [facility] Work Phone: Start: 12-08-2021 End: 12-08-2021 Departed Referred [facility] Start: 12-08-2021 Registered Referred [facility] Start: 12-05-2021 End: 12-05-2021 ambulatory [facility] Work Phone: Start: 12-05-2021 End: 12-05-2021 [facility] Start: 12-05-2021 Registered [facility] Start: 12-01-2021 End: 12-01-2021 [facility] Start: 12-01-2021 Registered [facility] Start: 11-28-2021 End: 11-28-2021 [facility] Start: 11-28-2021 [facility] Start: 11-25-2021 Rx Renewal Monika Elias rt Work Phone: [facility] Work Phone: Start: 11-23-2021 End: 11-23-2021 [facility] Start: 11-23-2021 Registered [facility] Start: 11-22-2021 End: 11-22-2021 [facility] Start: 11-22-2021 Registered [facility] Start: 11-21-2021 End: 11-21-2021 [facility] Start: 11-15-2021 AUDIT Monika Elias rt Work Phone: [facility] Work Phone: Start: 11-14-2021 End: 11-14-2021 [facility] Start: 11-14-2021 Registered [facility] Start: 11-08-2021 End: 07-05-2022 Departed Referred [facility] Start: 11-08-2021 Registered Referred [facility] Start: 11-04-2021 End: 11-04-2021 Departed Referred [facility] Start: 11-04-2021 Registered Referred [facility] Start: 10-31-2021 End: 11-01-2021 Emergency department patient visit UNKNOWN PROVIDER [facility] Start: 10-31-2021 End: 11-01-2021 Emergency department patient visit Dante Kim MD Work Phone: [facility] Emergency Dept Comment on above: Other fatigue (Prima ry Dx) Start: 10-31-2021 End: 10-31-2021 Departed Referred [facility] Start: 10-21-2021 End: 10-29-2021 Evaluation and management of inpatient UNKNOWN PROVIDER [facility] Start: 10-21-2021 End: 10-29-2021 Evaluation and management of inpatient Lisa Michelle DO Work Phone: [facility] Comment on above: Leg swelling (Primar y Dx); Acute deep vein thrombosis (DVT) of proximal vein of lower extremity, unspecified laterality (HCC) Start: 10-20-2021 End: 10-20-2021 Departed Referred [facility] Start: 10-17-2021 Telephone encounter Nicole davis MD Work Phone: [facility] Comment on above: Missed Appointment Start: 09-19-2021 End: 09-19-2021 Departed Referred [facility] Start: 11-02-2020 AUDIT Monika Elias rt Work Phone: [facility] Work Phone: Start: 10-27-2020 AUDIT Monika Elias rt Work Phone: [facility] Work Phone: Start: 07-13-2020 Patient encounter procedure Monika Staley [facility] Work Phone: Start: 04-13-2020 Patient encounter procedure Wing Ritter [facility] Work Phone: Start: 04-07-2020 Patient encounter procedure Wing Ritter [facility] Work Phone: Start: 03-18-2020 Patient encounter procedure Wing Ritter [facility] Work Phone: Start: 01-20-2020 Patient encounter procedure Monika Staley MD [facility] Work Phone: Start: 11-13-2019 End: 11-13-2019 Subsequent [...] visit by physician Sarika Salas Work Phone: [facility] Procedures Date Procedure Procedure Detail [...] metabolic pane l calcium total Travis Jameel PA Work Phone: Start: 12-22-2021 C-reactive protein [...] Start: 10-26-2021 Electroencephalogram w/rec awake&asleep Sarina Pineda PERFORMANCE CONSULTANT - ADA ACCOMMODATION CONSULTANT Work Phone: Start: 10-26-2021 Ct head/brain w/o co ntrast material Sarina Pineda PERFORMANCE CONSULTANT - ADA ACCOMMODATION CONSULTANT Work Phone: Start: 10-26-2021 Prothrombin time Andres Sheridan MD Work Phone: Start: 10-25-2021 Speech and language therapy regime Sarina Pineda PERFORMANCE CONSULTANT - ADA ACCOMMODATION CONSULTANT Work Phone: Start: 10-25-2021 Prothrombin time Andres [...] 10-21-2021 Blood count reticulo cyte automated Ellen B Niesha PERFORMANCE CONSULTANT - ADA ACCOMMODATION CONSULTANT Work Phone: Start: 10-21-2021 C-reactive protein Loua nn B Niesha PERFORMANCE CONSULTANT - ADA ACCOMMODATION CONSULTANT Work Phone: Start: 10-21-2021 Non-invas physiologi c std extremity art 2 level Shruthi Frenchacre PERFORMANCE CONSULTANT - ADA ACCOMMODATION CONSULTANT Work Phone: Start: 10-21-2021 Radex calcaneus mini mum 2 views Shruthi Frenchacre PERFORMANCE CONSULTANT - ADA ACCOMMODATION CONSULTANT Work Phone: Start: 10-21-2021 Dup-scan xtr veins [...] Comment: Speci men Type: BLOOD SPECIMENOrdering Facility: [facility] Address: [address] [place] [address] Performed By: #### T SCR ####[facility] BLOOD BANKCLIA [id number] [address] Start: 08-04-2021 Antibody screen Comment on above: Order Comment: Speci men Type: BLOOD SPECIMENOrdering Facility: [facility] Address: [address] [place] [address] Performed By: #### T SCR ####[facility] BLOOD BANKCLIA [id number] [place] [address] [facility] Start: 08-01-2021 Antibody screen Comment on above: Order Comment: Speci men Type: BLOOD SPECIMENOrdering Facility: [facility] Address: [address] [place] [address] Performed By: #### T SCR ####[facility] BLOOD BANKCLIA [id number] [place] [address] [facility] Start: 06-07-2021 Antibody screen Comment on above: Order Comment: Speci men Type: BLOOD SPECIMEN Performed By: #### T SCR ####[facility] BLOOD BANKCLIA [id number] [place] [address] [facility] Start: 09-02-2020 Lipid 1996 panel - S bradly or Plasma Rebecca Buck MD Work Phone: Start: 04-07-2020 Echocardiography Wing Ritter Start: 11-13-2019 Radiologic examinati on tibia & fibula 2 views 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 (David Lewis Work Phone: Hernia repair Monika melvin History of Cholecystotomy An yvette Staley History of Creation Of Subdural-Peritoneal CSF Shunt Monika Staley History of Interrupt ion Inferior Vena Cava Malin Filter Placement Monika Staley Urine culture Plan of Treatment Date Care Activity Detail Author Start: 09-22-2026 DTaP/Tdap/Td vaccine (2 - Td or Tdap) DTaP/Tdap/Td vaccine (2 - Td or Tdap) [facility] Start: 09-22-2026 DTaP/Tdap/Td vaccine (2 - Td) DTaP/Tdap/Td vaccine (2 - Td) [facility] Work Phone: Start: 09-22-2026 DTaP/Tdap/Td Vaccine s (2 - Td or Tdap) DTaP/Tdap/Td Vaccines (2 - Td or Tdap) [facility] Start: 09-02-2025 Lipid panel Lipid Panel [facility] Start: 08-22-2024 DIABETES SCREEN DIABETES SCREEN [facility] Start: 12-04-2023 Lipid panel Lipids [facility] Start: 12-04-2023 Lipid screen Lipid screen [facility] Work Phone: Start: 09-13-2023 End: 09-13-2023 Patient encounter procedure 09/13/2023 11:30 AM EDT Office Visit [facility] [address] [place] [address] Rebecca Buck MD [address] [place] [address] [facility] Start: 08-31-2023 End: 08-31-2023 Patient encounter procedure 08/31/2023 9:30 AM EDT Appointment [facility] [address] [place] [id number] Rebecca Buck MD [address] [place] [address] [facility] CT Imaging Start: 08-13-2023 End: 08-12-2024 Basic metabolic 1998 panel - Serum or Plasma Basic metabolic panel Lab Routine Calculus of ureter Expected: 08/13/2023 (Approximate), Expires: 08/12/2024 [facility] Comment on above: Expected: 08/13/2023 (Approximate), Expires: 08/12/2024 Start: 08-13-2023 End: 08-12-2024 CT Abdomen WO contrast CT abdomen pelvis wo IV contrast Imaging Routine Left flank pain Calculus of ureter Expected: 08/13/2023, Expires: 08/12/2024 [facility] Comment on above: Expected: 08/13/2023 , Expires: 08/12/2024 Start: 08-13-2023 End: 02-12-2024 PSA, Monitoring ([facility]) PSA, Monitoring ([facility]) Lab Routine Disease of prostate Expected: 08/13/2023 (Approximate), Expires: 02/12/2024 [facility] Work Phone: Comment on above: Expected: 08/13/2023 (Approximate), Expires: 02/12/2024 Start: 08-13-2023 End: 08-13-2023 Patient encounter procedure 08/13/2023 10:00 AM EDT Office Visit [facility] [address] [place] [address] Rebecca Buck MD [address] [place] [address] [facility] Start: 07-17-2023 Bacteria identified in Urine by Culture [facility] Start: 07-17-2023 [facility] Start: 07-16-2023 Measurement of substance [facility] Start: 05-07-2023 Medicare Advantage A nnual Wellness Visit Medicare Advantage Annual Wellness Visit [facility] Start: 03-02-2023 Creatinine measurement Creatinine Le carmela [facility] Start: 03-02-2023 Potassium measurement Potassium Leve l [facility] Start: 08-22-2022 Diabetes mellitus screening Diabetes Screening [facility] Start: 01-05-[address] [facility] Start: 12-23-2021 EPV, Provider: Wing Ritter, Status: Pen, Time: 9:30 AM EPV, Provider: Wing Ritter, Status: Pen, Time: 9:30 AM [facility]Xao[facility]Lzx ma Work Phone: Start: 12-05-2021 Influenza vaccination Flu vaccine (# 1) [facility] Start: 12-05-2021 Blood chemistry [facility] Work Phone: Start: 12-05-2021 Complete blood count [facility] Work Phone: Start: 12-05-2021 [facility] Work Phone: Start: 12-01-2021 [facility] Work Phone: Start: 08-05-2021 COVID-19 VACCINE (4 - Booster for Moderna series) COVID-19 VACCINE (4 - Booster for Moderna series) [facility] Start: 08-05-2021 COVID-19 Vaccine (4 - Booster for Pfizer series) COVID-19 Vaccine (4 - Booster for Pfizer series) [facility] Start: 06-01-2021 COVID-19 Vaccine (4 - Booster for Pfizer series) COVID-19 Vaccine (4 - Booster for Pfizer series) [facility] Start: 05-07-2021 ADVANCE DIRECTIVE DISCUSSION ADVANCE DIRECTIVE DISCUSSION [facility] Start: 08-11-2020 Screening for malign ant neoplasm of colon [facility] Start: 07-30-2020 Screening for malign ant neoplasm of colon [facility] Start: 01-20-2020 Echocardiography Echocardiogram MP-C ardi[facility] [address] [place] Work Phone: Start: 01-06-2020 Influenza vaccination INFLUENZA (#1) [facility] Start: 12-04-2019 Annual Wellness Visi t (AWV) Annual Wellness Visit (AWV) [facility] Start: 12-04-2019 Creatinine monitoring Creatinine mon itoring [facility] Work Phone: Start: 12-04-2019 Hepatitis C screen Hepatitis C scree n [facility] Work Phone: Comment on above: Postponed from 05/06 (Patient Refused) Start: 12-04-2019 Potassium monitoring Potassium monit oring [facility] Work Phone: Start: 12-04-2019 Prostate specific an tigen measurement Prostate Specific Antigen (PSA) Screening or Monitoring [facility] Start: 12-04-2019 Shingles Vaccine (1 of 2) Day gles Vaccine (1 of 2) [facility] Work Phone: Comment on above: Postponed from 05/06 (Patient Refused) Start: 06-07-2019 Colon Cancer Screen FIT/FOBT [facility] Work Phone: Start: 08-14-2017 LIPID SCREEN LIPID SCREEN [facility] Start: 2017 ADVANCE DIRECTIVE DISCUSSION ADVANCE DIRECTIVE DISCUSSION [facility] Start: 2017 PNEUMOCOCCAL: 65+ (1 - PCV) PNEUMOCOCCAL: 65+ (1 - PCV) [facility] Start: 2017 PNEUMOVAX AGE 65 AND OVER WITH 5YR LOOKBACK (#1) PNEUMOVAX AGE 65 AND OVER WITH 5YR LOOKBACK (#1) [facility] Start: 04-14-2016 DIABETES SCREEN DIABETES SCREEN [facility] Start: 2012 RSV Immunization age d 60 or older (1 - 1-dose 60+ series) RSV Immunization aged 60 or older (1 - 1-dose 60+ series) [facility] Start: 2007 PROSTATE CANCER SCRE ENING DISCUSSION PROSTATE CANCER SCREENING DISCUSSION [facility] Start: 2002 Shingles vaccine (1 of 2) Day gles vaccine (1 of 2) [facility] Start: 2002 SHINGRIX VACCINE (1 of 2) DAY GRIX VACCINE (1 of 2) [facility] Start: 2002 Tuberculosis screening COLOREC MONIQUE CANCER SCREENING,SEE MODIFIER [facility] Start: 2002 Zoster Vaccines (1 of 2) Zoste r Vaccines (1 of 2) [facility] Start: 1997 COLOGUARD (FIT-DNA) COLOGUARD (FIT-D NA) [facility] Start: 1997 Colonoscopy COLONOSCOPY [facility] Start: 1997 COLORECTAL CANCER SCREENING COLORECTAL CANCER SCREENING [facility] Start: [address] COLONOGRAPHY [facility] Start: 1997 FECAL OCCULT BLOOD FECAL OCCULT BLOO D [facility] Start: 1997 Screening for malign ant neoplasm of colon [facility] Start: 1997 SIGMOIDOSCOPY SIGMOIDOSCOPY [facility] Start: 1987 Diabetes screen Diabetes screen [facility] Start: 1971 Urine microalbumin profile DTAP,TDAP,TD (1 - Tdap) [facility] Start: 1970 ANNUAL 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 KEESHA DISEASE VISIT ANNUAL PCP TEAM CHRONIC DISEASE VISIT [facility] Start: 1970 BP CONTROLLED (<130/80) BP CONTROLLE D (<130/80) [facility] Start: 1970 Diabetes mellitus screening Diabetes Screening [facility] Start: 1970 HEPATITIS C SCREENING HEPATITIS C SC PHIL [facility] Start: 1970 Hepatitis C screening [facility] Start: 1964 Adult depression screening assessment DEPRESSION SCREENING [facility] Start: 1964 Depression Screen Depression Screen [facility] Start: 1962 Diabetic foot examination Diabetes: Foot Exam [facility] Start: 1962 Glaucoma screening Diabetes: R etinopathy Screening [facility] Start: 1962 Preventive dental service Diabetes: Dental Exam [facility] Start: 1952 Echocardiography Echocardiogram [facility] Start: 1952 Hemoglobin A1c measurement Diabetes: Hemoglobin A1C [facility] Start: 1952 Lipid panel Lipid Panel [facility] Start: 1952 Screening for malign ant neoplasm of colon [facility] Bacteria identified in Urine by Culture Urine Culture [facility] Work Phone: End: 03-02-2022 CBC W Auto Differential panel - Blood CBC with Auto Differential Lab Routine One Time for 1 Occurrences starting 03/02/2022 until 03/02/2022 [facility] Work Phone: Comment on above: One Time for 1 Occur rences starting 03/02/2022 until 03/02/2022 End: 03-02-2022 Comprehensive metabolic 2000 panel - Serum or Plasma Comprehensive Metabolic Panel Lab STAT One Time for 1 Occurrences starting 03/02/2022 until 03/02/2022 [employer] Work Phone: Comment on above: One Time for 1 Occur rences starting 03/02/2022 until 03/02/2022 End: 09-06-2023 CT Abdomen [facility] Work Phone: Comment on above: Once for 1 Occurrenc es starting 09/06/2023 until 09/06/2023 End: 12-22-2021 Culture, Blood 2 Culture, Blood 2 Microbiology STAT One Time for 1 Occurrences starting 12/22/2021 until 12/22/2021 [facility] Work Phone: Comment on above: One Time for 1 Occur rences starting 12/22/2021 until 12/22/2021 End: 12-22-2021 Microscopic examination of blood, culture Culture, Blood Microbiology STAT One Time for 1 Occurrences starting 12/22/2021 until 12/22/2021 [employer] Work Phone: Comment on above: One Time for 1 Occur rences starting 12/22/2021 until 12/22/2021 Microscopic examinat ion of blood, culture Culture, Blood Microbiology STAT 12/22/2021 12:22 AM EDT [facility] Work Phone: Oxygen therapy [[facility] Data Set] Initiate Oxygen Therapy Protocol Respiratory Care Routine As Needed until discontinued starting 10/21/2021 [facility] Comment on above: As Needed until disc ontinued starting 10/21/2021 Protime-INR Protime-INR Lab Routine Daily until discontinued starting 10/23/2021, 7 completed [facility] Work Phone: Comment on above: Daily until disconti nued starting 10/23/2021, 7 completed End: 03-02-2022 Protime-INR Protime-INR Lab Routine One Time for 1 Occurrences starting 03/02/2022 until 03/02/2022 [facility] Work Phone: Comment on above: One Time for 1 Occur rences starting 03/02/2022 until 03/02/2022 Spirometry panel Incentive stef metry Respiratory Care Routine Daily until discontinued starting 10/21/2021 [facility] Work Phone: Comment on above: Daily until disconti nued starting 10/21/2021 End: 10-21-2021 Wound ostomy eval Wound ostomy eval Wound Ostomy Routine One Time for 1 Occurrences starting 10/21/2021 until 10/21/2021 [facility] Work Phone: Comment on above: One Time for 1 Occur rences starting 10/21/2021 until 10/21/2021 [facility] NEGATED: Highlighted row has been ruled out! Planned Goals not documented AT-[facility] Work Phone: Immunizations Immunization Date Immunization Notes Care Provider [facility] 03-04-2019 influenza, high dose seasonal, preservative-free Sarika Salas [facility] 12-03-2018 pneumococcal polysac charide vaccine, 23 valent Sarika Salas [facility] Work Phone: 01-25-2018 influenza, high dose seasonal, preservative-free Sarika Salas [facility] 02-14-2017 influenza, injectabl e, quadrivalent, contains preservative Sarika Salas [facility] 09-22-2016 pneumococcal conjuga te vaccine, 13 valent Sarika Salas [facility] Work Phone: 09-22-2016 tetanus toxoid, redu patrice diphtheria toxoid, and acellular pertussis vaccine, adsorbed Sarika Salas [facility] Work Phone: 02-24-2016 influenza, injectabl e, quadrivalent, contains preservative Sarika [facility] 02-08-2015 influenza virus vacc ine, unspecified formulation Sarika [facility] Work Phone: 02-04-2013 pneumococcal Conjuga te, unspecified formulation Sarika ARMENDAR[facility] Work Phone: Payers Date Payer Category Payer Unknown [id number] 01-02-2024 Self-pay 01-05-2022 Medicaid 01-05-2022 Medicare 01-05-2022 Medicare [id number] 10-05-2021 Medicaid [id number] 06-07-2021 Medicare UHC MEDICARE UHC DUAL COMPLETE HMO SNP [id number] 06/07/2021-Present [phone] [address] [place] [address] Medicare [id number] 06-07-2021 Medicare UHC MEDICARE [employer] DUAL COMPLETE [id number] 06/07/2021-Present [phone] [address] [place] [address] [id number] 11-05-2019 Medicare UHC AARP MEDICAR E [facility] AARP MEDICARE HMO [id number] 11/05/2019-Present [facility] [id number] 07-06-2015 Medicare UHC MEDICARE UHC MEDICARE COMPLETE xxxxxxxxx 2015-Present xxxxxxxxx [id number] 1952 Unknown [id number] 1952 Unknown [id number] 1952 Unknown [id number] 2.[birth year]-06-1950 Unknown [id number] 2.05-06-1950 Unknown [id number] 2.[birth year]-06-1950 Unknown [id number] 2.[birth year]-06-1950 Unknown [id number] Private Health Insurance Unknown Unknown [id number] 2.840.1.358703.3.579. 2.462 Unknown [id number] 2.840.1.724517.3.579. 2.462 Unknown [id number] .840.1.783255.3.579. 2.462 Unknown [id number] 2.840.1.449276.3.579. 2.462 Unknown [id number] 2.840.1.058261.3.579. 2.462 Unknown [id number] 2.840.1.960939.3.579. 2.462 Unknown [id number] 2.840.1.561940.3.579. 2.462 Unknown 77838350 .840.1.024794.3.579. 2.462 Unknown [id number] 2.840.1.347882.3.579. 2.462 Unknown [id number] 2.840.1.660800.3.579. 2.462 Unknown [id number] 2.840.1.299788.3.579. 2.462 Unknown 46400969 2.16.840.1.468263.3.579. 2.462 Unknown 18733794 2.16.840.1.338796.3.579. 2.462 Unknown 75609686 2.16.840.1.763712.3.579. 2.462 Unknown 35147872 2.16.840.1.524316.3.579. 2.462 Unknown [id number] 2.16.840.1.009310.3.579. 2.462 Unknown [id number] 2.16.840.1.217067.3.579. 2.462 Unknown [id number] 2.16840.1.285903.3.579. 2.462 Unknown [id number] 2.16840.1.730564.3.579. 2.462 Unknown [id number] 2.840.1.548553.3.579. 2.462 Unknown 80615379 2.16.840.1.654427.3.579. 2.462 Unknown [id number] 2.16.840.1.899449.3.579. 2.462 Unknown [id number] 2.16.840.1.981519.3.579. 2.462 Unknown 44739181 2.16.840.1.069902.3.579. 2.462 Unknown [id number] 2.16.840.1.520246.3.579. 2.462 Unknown [id number] 2.16.840.1.829453.3.579. 2.462 Unknown [id number] 2.16.840.1.455844.3.579. 2.462 Unknown [id number] 2.16.840.1.944059.3.579. 2.462 Unknown [id number] 2.16.840.1.685669.3.579. 2.462 Unknown [id number] 2.16840.1.980637.3.579. 2.462 Unknown [id number] 2.16.840.1.503763.3.579. 2.462 Unknown [id number] 2.16.840.1.172447.3.579. 2.462 Unknown [id number] 2.16.840.1.572079.3.579. 2.462 Unknown [id number] 2.16.840.1.939251.3.579. 2.462 Unknown [id number] 2.16.840.1.590163.3.579. 2.462 Unknown [id number] 2.840.1.195646.3.579. 2.462 Unknown [id number] 2.840.1.148390.3.579. 2.462 Unknown [id number] 2.840.1.637414.3.579. 2.462 Unknown [id number] 2.840.1.206005.3.579. 2.462 Unknown [id number] 2.840.1.756441.3.579. 2.462 Unknown 62605525 2.840.1.885810.3.579. 2.462 Unknown 36291118 2.840.1.796607.3.579. 2.462 Unknown 80642025 2.16840.1.251873.3.579. 2.462 Unknown 39388350 2..840.1.508272.3.579. 2.462 Unknown 63066415 2.16840.1.325979.3.579. 2.462 Unknown [id number] 2.840.1.724048.3.579. 2.462 Unknown [id number] 2.16840.1.970728.3.579. 2.462 Unknown [id number] 2.16.840.1.880946.3.579. 2.462 Unknown [id number] 2.16.840.1.452196.3.579. 2.462 Unknown [id number] 2.16.840.1.200023.3.579. 2.462 Unknown [id number] 2.16.840.1.513688.3.579. 2.462 Unknown [id number] 2.16.840.1.985475.3.579. 2.462 Unknown [id number] 2.16.840.1.568356.3.579. 2.462 Unknown [id number] 2.16.840.1.028461.3.579. 2.462 Unknown [id number] 2.16.840.1.114538.3.579. 2.462 Unknown [id number] 2.16.840.1.291738.3.579. 2.462 Unknown [id number] 2.16.840.1.920715.3.579. 2.462 Unknown [id number] 2.16.840.1.571918.3.579. 2.462 Unknown 50833066 2.16.840.1.817973.3.579. 2.462 Unknown 70449181 2.16.840.1.027244.3.579. 2.462 Unknown 78766569 2.16.840.1.655927.3.579. 2.462 Unknown [id number] 2.16.840.1.907877.3.579. 2.462 Unknown [id number] 2.16.840.1.433996.3.579. 2.462 Unknown [id number] 2.16.840.1.562827.3.579. 2.462 Unknown [id number] 2.16.840.1.814863.3.579. 2.462 Unknown [id number] 2.16.840.1.930849.3.579. 2.462 Unknown [id number] 2.16.840.1.640126.3.579. 2.462 Unknown [id number] 2.16.840.1.968122.3.579. 2.462 Unknown [id number] 2.16.840.1.928882.3.579. 2.462 Unknown [id number] 2.16.840.1.895997.3.579. 2.462 Unknown [id number] 2.16.840.1.895630.3.579. 2.462 Unknown 34481328 2.840.1.844738.3.579. 2.462 Unknown 42992081 2.840.1.154115.3.579. 2.462 Unknown 29408342 2.840.1.403547.3.579. 2.462 Unknown 19302983 2.840.1.110890.3.579. 2.462 Unknown 31927177 2.840.1.731810.3.579. 2.462 Unknown [id number] 2.840.1.288908.3.579. 2.462 Unknown 72464179 2.840.1.842009.3.579. 2.462 Unknown 63604568 2.840.1.181506.3.579. 2.462 Unknown 53653075 2.840.1.147649.3.579. 2.462 Unknown 85697356 2.840.1.954265.3.579. 2.462 Unknown 06654291 2.840.1.402503.3.579. 2.462 Unknown 47357097 2.840.1.842656.3.579. 2.462 Unknown 77358739 2.840.1.615836.3.579. 2.462 Unknown 42361750 2.840.1.805098.3.579. 2.462 Unknown 71522992 2.840.1.132116.3.579. 2.462 Unknown 65328513 2.16.840.1.022422.3.579. 2.462 Unknown 36326560 2.16.840.1.277124.3.579. 2.462 Unknown 83907215 2.16.840.1.918703.3.579. 2.462 Unknown 07508200 2.16840.1.961389.3.579. 2.462 Unknown 45588687 2.16840.1.819915.3.579. 2.462 Unknown 70663735 2.840.1.638252.3.579. 2.462 Unknown 49503068 2.840.1.285405.3.579. 2.462 Unknown 12907072 2.840.1.804668.3.579. 2.462 Unknown 84539992 2.840.1.584469.3.579. 2.462 Unknown 63891580 2.840.1.417554.3.579. 2.462 Unknown 25010433 2.840.1.007781.3.579. 2.462 Unknown 32347791 2.840.1.242780.3.579. 2.462 Unknown 72292108 2.840.1.572615.3.579. 2.462 Unknown 36269739 2.840.1.046667.3.579. 2.462 Unknown 06544742 2.840.1.845998.3.579. 2.462 Unknown 58800997 2.840.1.688248.3.579. 2.462 Unknown 62322933 2.840.1.553459.3.579. 2.462 Unknown 13019821 2.16840.1.640828.3.579. 2.462 Unknown 64225756 2.16.840.1.646517.3.579. 2.462 Unknown 49904784 2.16.840.1.738598.3.579. 2.462 Unknown 54641071 2.16.840.1.150858.3.579. 2.462 Unknown 15988620 2.16.840.1.728670.3.579. 2.462 Unknown 61074010 2.16.840.1.680741.3.579. 2.462 Unknown 34741198 2.16.840.1.495130.3.579. 2.462 Unknown 62779494 2.16.840.1.064214.3.579. 2.462 Unknown 78674242 2.16.840.1.664775.3.579. 2.462 Unknown [id number] 2.16.840.1.797633.3.579. 2.462 Unknown [id number] 2.16.840.1.863908.3.579. 2.462 Unknown [id number] 2.16.840.1.390450.3.579. 2.462 Unknown [id number] 2.16.840.1.267002.3.579. 2.462 Social History Date Type Detail Facility Start: 05-23-2018 End: 05-19-2019 Tobacco smoking status [facility] Former smoker [employer] Work Phone: History of tobacco use Cigar Smoker [employer] Work Phone: Start: 05-19-2019 End: 08-13-2023 Cigarettes smoked current (pack per day) - Reported [employer] Work Phone: Start: 05-19-2019 End: 08-13-2023 Alcohol intake Current non-drinker of alcohol (finding) [employer] Work Phone: Start: 12-03-2018 History SDOH Physica l Activity DPW 7 [employer] Work Phone: Start: 12-03-2018 History SDOH Physica l Activity MPS 9 [employer] Work Phone: Start: 12-03-2018 End: 10-31-2021 History SDOH Stress [facility] Work Phone: Start: 12-03-2018 History SDOH Financial 5 [facility] Work Phone: Start: 12-03-2018 History SDOH Transpo rt Med 2 [facility] Work Phone: Start: 1950 Sex Assigned At Not on file [facility] Work Phone: Start: 08-13-2012 End: 11-13-2019 Tobacco smoking status NHIS Never smoker [facility] Start: 05-23-2018 End: 11-13-2019 Tobacco use and exposure Never used [facility] Start: 11-13-2019 History SDOH Alcohol Std Drinks 98 [facility] Start: 10-11-2021 End: 02-15-2022 Exposure to SARS-CoV-2 (event) Not sure [facility] Start: 1950 Sex Assigned At Male [facility] History of tobacco use Current smoker [facility] Work Phone: History of tobacco use Cigarette Smoker [facility] Work Phone: Start: 10-31-2021 End: 08-13-2023 Tobacco use panel [facility] Tobacco smoking stat us MOIS Unknown if ever smoked [facility] Work Phone: Start: 07-11-2024 End: 08-21-2024 Sex Male (finding) [facility] NEGATED: Highlighted row - - [facility] Work Phone: Medical Equipment Procedure Code Equipment Code Equipment Origin al Text Equipment Identifier Dates Kit Bactiseal Woodard maria guadalupe Silicone Barium Catheter Shunt Sterile - [id number] Start: 06-08-2021 Catheter Bactise al 14cm External Drainage Csf Sterile Latex Free - [id number] Start: 08-05-2021 Valve Certas Shannon nt Inline - [id number] Start: 06-08-2021 Valve Certas Shannon nt Inline - [id number] Start: 08-05-2021 Valve Certas Shannon [facility] - [id number] Start: 08-09-2021 Goals Date Patient Goal [...] confident he can reach it. Added to [facility] exercise information Functional Status Date Assessment Result Facility NEGATED: Highlighted row Functional performance Functional status health issues are not documented Disease [facility] Work Phone: Mental Status Date Assessment Result Facility NEGATED: Highlighted row Cognitive function [Interpretation] Cognitive status health issues are not documented Disease [facility] Work Phone: Clinical [...] Hydrocephalus, adult (CMS/HCC) (HCC) Kidney stone Neuropathy BLOW MOLD OPERATOR (ventriculoperitoneal) shunt status Past Surgical History: [...] PM documented in this encounter [facility] 08-31-2023 Note S: Shanthi from [facility] spoke with [facility] nurse regarding voiding trial procedure. B: [...] Protocols used: Information Only Call - No [facility] Telephone encounter Note S: Shanthi from [facility] spoke with [facility] nurse regarding voiding trial procedure. B: [...] Protocols used: Information Only Call - No Fivqwk-ZBHWF-OG [facility] 08-31-2023 Miscellaneous Notes S: Shanthi from [facility] spoke with [facility] nurse regarding voiding trial [...] Protocols used: Information Only Call - No Cokhbs-YNEEJ-RR documented in this encounter [facility] 08-29-2023 Telephone encounter Note Chidi on daughters vm to advise them to call the number for the manager commercial sales to get clarification, and to call back with further questions [facility] 08-29-2023 Miscellaneous Notes Lm on daughters vm to advise them to call the number for the manager commercial sales to get clarification, and to call back with further questions Yes, they will need to call the number given to them. Please advise Name of caller: Shanthi Contact phone number: [phone] Relationship to Patient: patient Provider: MD Quinn Practice: [facility] Chief Complaint/Reason for Call: Shanthi called in to see if Pt would need to come by cot for his CT appt due to Pt being Bo[place]. TEA did reach out to office and was advised to reach out to Central Scheduling. TEA did reach out to and was advised to let [facility] know that she would need to reach out to call Maury Avila at [facility] [phone] to get clarifications. CAC did reach back out to [facility] and advised and provider Maury's #. Please advise Best time of day caller can be reached: Any Patient advised that office/PCP has 24-48 business hours to return their call: N/A documented in this encounter [facility] 08-27-2023 Telephone encounter Note Yes, they will need to call the number given to them. [facility] 08-27-2023 Telephone encounter Note Please advise [facility] 08-21-2023 Telephone encounter Note Name of caller: Shanthi Contact phone number: [phone] Relationship to Patient: patient Provider: MD Quinn Practice: [facility] Chief Complaint/Reason for Call: Shanthi called in to see if Pt would need to come by cot for his CT appt due to Pt being Bo[place]. TEA did reach out to office and was advised to reach out to Central Scheduling. TEA did reach out to and was advised to let [facility] know that she would need to reach out to call Maury Avila at [facility] [phone] to get clarifications. CAC did reach back out to [facility] and advised and provider Maury's #. Please advise Best time of day caller can be reached: Any Patient advised that office/PCP has 24-48 business hours to return their call: N/A [facility] 08-13-2023 History of Present illness Narrative Images [...] Hydrocephalus, adult (CMS/HCC) (HCC) Kidney stone Neuropathy BLOW MOLD OPERATOR (ventriculoperitoneal) shunt status Past Surgical History: [...] AM documented in this encounter [facility] 06-25-2023 Telephone encounter Note [facility] called in stating appt scheduled 07/10/23 [place] has to be made further out, pt being transported by cot. Changed appt to 08/13/23 per [facility] only avail time for transport, first avail with DR Buck at 10:00 AM. [facility] 06-25-2023 [facility] 07[facility]10[facility]23 [place] has to be made further out, pt being transported by cot. Changed appt to 08/13/23 per [facility] only avail time for transport, first avail with DR Buck at 10:00 AM. documented in this encounter [facility] 12-22-2021 Hospital Discharge instructions SANIA Lou - 12/22/2021 2:32 AM EDT Please take medication as prescribed Please follow up with your Physicians as instructed in this discharge paperwork Thank you for [facility] I appreciate your patience Please return to the emergency department if your symptoms worsen, or new symptoms develop as discussed documented in this encounter [facility] Work Phone: 10-29-2021 Note Hospitalist Discharg [...] abnormality and previous indwelling tubing history of BLOW MOLD OPERATOR shunt ? #?Bilateral lower extremity wounds-wound [...] neurologist. Patient will be transferred to the intermediate and his Coumadin was continued, dosing instructions were given. Wound care was given for his lower extremity wounds. Consults: neurology, vascular surgery, gastroenterology Discharge Instructions: Diet: No diet orders on file Activity: as tolerated Disposition: Patient discharged in stable condition to intermediate . Greater than 30 minutes spent discharging [...] Your Medications These medications were sent to [facility] [address] [address] [address] [facility] - P [phone] - F [phone] [address] [facility] [id number] ? levETIRAcetam 750 MG tablet ? warfarin 6 MG tablet Recommended Follow-up: No follow-up provider specified. Complexity of Follow up: [] Moderate Complexity: follow up within 7-14 calendar days (05133) [x] Severe Complexity: follow up within 7 calendar days (97742) Follow up Testing, Pending results or Referrals [...] PCP: MONIKA STALEY MD Discharging [facility] Unit/Room[facility] 146/1461 Discharging Unit Emergency Contact: Extended Emergency Contact Information Primary Emergency Contact: Triny Damon Address: [address] [place] [address] [place] [address] [facility] Relation: Brother/Sister Secondary Emergency Contact: Melissa Sifuentes Mobile Relation: Child Preferred language: Burkinan Past Surgical History: Past Surgical History: Procedure Laterality Date BRAIN SURGERY CHOLECYSTECTOMY COLONOSCOPY HERNIA REPAIR Immunization History: Immunization History Administered Date(s) Administered Influenza Virus Vaccine 02/08/2015 Influenza, High Dose (Fluzone 65 yrs and older) 01/25/2018, 03/04/2019 Influenza, Quadv, IM, (6 mo and older Fluzone, Flulaval, Fluarix and 3 yrs and older Afluria) 02/24/2016, 02/14/2017 Pneumococcal Conjugate 13-valent (Fypbbrh52) 09/22/2016 Pneumococcal Conjugate Vaccine 02/04/2013 Pneumococcal Polysaccharide (Xxvfmlfvk36) 12/03/2018 Tdap (Boostrix, Adacel) 09/22/2016 Active Problems: Patient Active Problem List Diagnosis Code Flank pain, acute R10.9 Night muscle spasms M62.838 Chronic fatigue R53.82 Hydrocephalus ([facility]) G91.9 Neuropathy G62.9 Erectile dysfunction N52.9 Fluid retention in tissues R60.9 Hyperlipidemia E78.5 Morbidly obese ([facility]) E66.01 Leg wound, left S81.802A DVT, lower extremity, recurrent, unspecified laterality ([facility]) I82.409 Moderate malnutrition ([facility]) E44.0 History of seizures Z87.898 Isolation/Infection: Isolation [...] Dependent Dressing Dependent Toileting Dependent Feeding Dependent Rfid Manager Dependent Med Delivery whole [facility] Documentation and Therapy: Wound 10/21/21 [...] Q4H prn SOB Oxygen Therapy: {Therapy; copd oxygen:80845} Ventilator: { CC Vent List:[id number]} Rehab Therapies: {THERAPEUTIC INTERVENTION:[id number]} Weight Bearing Status/Restrictions: Weight Bearing - Patient was bedbound in hospital Other Medical Equipment (for information only, NOT a DME order): wheelchair, hospital bed, and Boaz Other Treatments: Patient's personal belongings (please select all that are sent with patient): {[facility] DME Belongings:[id number]} RN SIGNATURE: CASE MANAGEMENT/SOCIAL WORK SECTION Inpatient Status Date: Readmission Risk Assessment Score: Readmission Risk Risk of Unplanned Readmission: 11 Discharging to Facility/ Agency Name: Address: Phone: Fax: Dialysis Facility (if applicable) Name: Address: Dialysis Schedule: Phone: Fax: Office Executive/Consulting Project Director signature: {Esignature:[id number]} PHYSICIAN SECTION Prognosis: Fair Condition at Discharge: Stable Rehab Potential (if transferring to Rehab): Fair Recommended Labs or Other Treatments After Discharge: Coumadin based on INR target range 2-3, Coumadin 6 mg on 10/30 and 10/31, recheck INR 11/01 and notify physician, ideally should be on 6 mg alt with 7 mg daily, PT/OT, follow-up with neurologist in 1 month, continue [facility] Physician Certification: I certify the above information and transfer of Andrew Sifuentes is necessary for the continuing treatment of the diagnosis listed and that he requires Prison Facility for greater than 30 days. Update Admission H&P: No change in H&P PHYSICIAN SIGNATURE: documented in this encounter [facility] Work Phone: 10-29-2021 History of Present illness Narrative [facility] ([facility]) Inpatient Warfarin Consult HPI: Andrew Sifuentes is a 71 y.o. 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 Pt [...] PharmD IRVIN Consult Service is available daily [phone]. Please search for covering pharmacist name via [employer] or Groups --> Pharmacy --> Anti-Coagulation Consult Pharmacist (on 3rd page). If no response via [employer], please page [phone]. Patient seen and chart reviewed. Afebrile. Adequate oxygenation on room air. Baseline mentation. Exam stable X 5 systems. Hgb 11.0 WBC 10.0 K Platelets 344 K Creatinine 0.71 GFR > 90 cc/min. NSE 20.8 with hemolysis. PT 30.8 INR 3.1 Conversion to Warfarin has been completed. APS w/u pending. Discussed with patient's staffing manager. Will continue to monitor. Total visit time > 35 minutes. Neurology Attending Progress Note SUBJECTIVE: No issues overnight. Care discussed with nursing staff/patient's medical team MRI brain reported nothing acute. Assessment and Plan: 71 yr M with H obstructive hydrocephalus s/p BLOW MOLD OPERATOR shunt in 1987, needing multiple revisions [...] normal limits and both old and new BLOW MOLD OPERATOR shunt tubing noted. At present patient is awake, follows commands, was able to tell his name, and that he was in hospital but not oriented to time. Per documentation patient had NCSE in May 2021, was on Vimpat, but it was discontinued as there was no evidence of recurrent seizures in july 2021 by Neurology at [facility], per daughter patient was on Dilantin for 31 yrs. Per daughter patient had seizures in the past and also felt he had staring episodes 10/26/2021 morning. Per daughter patient has been essentially bed bound in [place] since May 2021 but prior to that was independent Impressions: H/O hydrocephalus H/O seizure, H/O stroke Acute DVT H/O PE Plan: -MRI brain w/o contrast nothing acute -CT head done during this admission reported no hydrocephalus, ventricles within normal limits and both old and new BLOW MOLD OPERATOR shunt tubing noted -EEG mild to moderate slow, no seizures reported -Labs reviewed -Hydrocephalus management per Neurosurgery. At present patient does not have hydrocephalus on CT head done this admission. No Neurosurgery services available as inpatient in [facility]. Patient can follow up with Neurosurgery as [...] when he was admitted to [facility]. Per daughter she would want patient [...] is no in house Neurology coverage at [facility] over the weekend, primary hospitalist team to contact strong nitric operator Neurology at [facility] for any weekend neurological issues related to the patient and if need to discuss any neurological test results/findings. Other deal in house Neurology coverage will be available from Sunday at [facility] and please call strong nitric operator Neurology back on Sunday if need further assistance. This note has been generated using [employer] dictation software. It may contain incorrect words, punctuation's and spellings that were not noted in the review of the note prior to signing. This note has been generated using [employer]O dictation software. It may contain incorrect words, [...] eGFR >90.0 >60 mL/min EGFR IF NonAfrican Bahamian >90.0 >60 mL/min Calcium 9.1 8.4 - [...] 26 AST 24 BILITOT 0.4 LABALBU 3.7 @BRIEFLAB([facility]) ABGs: )No results for input(s): [...] Radiology ACCESSION EXAM DATE/TIME PROCEDURE ORDERING PROVIDER [id number] 10/21/2021 15:30 EDT CR Calcaneus 2+ Views [id number] -SHRUTHI MALKI Left CPT code 96305 Reason For Exam (CR Calcaneus 2+ Views [...] Result Date: 10/26/2021 [id number] Computed Tomography ACCESSION EXAM DATE/TIME PROCEDURE ORDERING PROVIDER [id number] 10/26/2021 11:[address] Head or Brain w/o JUNIE PINEDA, SARINA Contrast CPT code 91944 Reason For Exam (CT Head or Brain w/o Contrast) hydrocephalus. thank you Report CLINICAL INFORMATION: Hydrocephalus. Shunt. 3 mm axial cuts through the head are obtained without IV contrast. The examination is compared to a previous study dated 06/29/2014. FINDINGS: Old BLOW MOLD OPERATOR shunt tubing is noted bilaterally. The [...] are clear. IMPRESSION: 1. Old and new BLOW MOLD OPERATOR shunt tubing. 2. No hydrocephalus. 3. [...] Imaging ACCESSION EXAM DATE/TIME PROCEDURE ORDERING PROVIDER [id number] 10/23/2021 11:08 EDT MRI Abdomen w/o Contrast WING SRIVASTAVA CPT code 76342 Reason For Exam (MRI Abdomen w/o Contrast) [...] Result Date: 10/21/2021 Patient Name: [id number] Nuclear Medicine ACCESSION EXAM DATE/TIME PROCEDURE ORDERING PROVIDER [id number] 10/21/2021 07:55 EDT [place] Pulmonary Perfusion [id number] MAY BOGGS w/ Vent Aerosol CPT code 16660 A9567 Reason For Exam (NM Pulmonary Perfusion [...] Brachial Indices Extremity Bilateral Result Date: 10/22/2021 [facility] --- Ankle Brachial Index Report Patient DO GurpreetB: 1950 Study 10/21/2021 Name: Andrew Gonzalez (71yrs) Date: Age: 71 Account: [id number] Gender: M Loc: 444W BP: Ordering Physician: Shruthi Malik Radiology Orderly: Rody Cross RDMS, RVT Interpreting Physician: Carina Call --- Location: [facility] --- Indications: Foot wounds. Originally ordered as a full PVR. Ordering SECURITY ANALYST had to modify the order to ABIs [...] supine position. Images were obtained using a [employer] vascular ultrasound machine. --- Arterial pressure indices: [...] EXTREMITY BILATERAL VENOUS DUPLEX Result Date: 10/21/2021 [facility] [facility] --- Lower Extremity Venous Duplex Report Patient DO GurpreetB: 1950 Study 10/21/2021 Name: Andrew Gonzalez (71yrs) Date: Age: 71 Account: [id number] Gender: M Loc: 444 BP: Ordering Physician: May Cash Radiology Orderly: Rody Cross RDMS, RVT Interpreting Physician: Carina Call --- Location: [facility] --- Indications: Bilateral lower leg [...] supine position. Images were obtained using a [employer]ock[employer]s vascular ultrasound machine. --- Venous flow and [...] Radiology ACCESSION EXAM DATE/TIME PROCEDURE ORDERING PROVIDER [id number] 10/21/2021 08:16 EDT CR Chest 1 View Frontal [id number] MAY BOGGS CPT code 92900 Reason For Exam (CR Chest 1 View [...] Tomography ACCESSION EXAM DATE/TIME PROCEDURE ORDERING PROVIDER [id number] 10/22/2021 13:[address] Abdomen/Pelvis (No SRIVASTAVA, WING PO, No IV) CPT code 47052 Reason For Exam (CT Abdomen/Pelvis (No PO, [...] Result Date: 10/27/2021 [id number] Resonance Imaging ACCESSION EXAM DATE/TIME PROCEDURE ORDERING PROVIDER [id number] 10/27/2021 13:14 EDT MRI Brain w/o Contrast UNASSIGNED, UNASSIGNED CPT code 48262 Reason For Exam (MRI Brain w/o Contrast) stroke Patient has BLOW MOLD OPERATOR shunt in place, please follow Radiology [...] included. Hospitalist Progress Note 10/28/2021 11:37 AM [phone]: Please page al @ [phone] for patient care issues. [phone]: Please page repairer and checker for any issues@ night Subjective: Admit Date: [...] PT/INR: Recent Labs 10/26/21 0319 10/27/21 0537 10/28/21 0418 PROTIME 19.7* 21.9* [...] abnormality and previous indwelling tubing history of BLOW MOLD OPERATOR shunt # Bilateral lower extremity wounds-wound [...] Services This report was created using the [employer] Speaking voice-activated system. Despite prompt dictation and careful editorial review, there may be subtle contextual errors in this report, due to misrecognition of the spoken word. Speech Language Pathology Facility/Department: [facility] Dysphagia Treatment Note NAME: [...] and gloves were worn throughout this session. [facility] ([facility]) Inpatient Warfarin Consult HPI: Andrew Sifuentes is a 71 y.o. 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 Pt [...] drug interactions and adjust dose accordingly. 3. [facility] will manage while inpatient and sign off at discharge. Patient resides in a SNF. 4. Will provide warfarin education including [facility] warfarin booklet, if appropriate. Brionna Le, PharmD candidate Josie Gupta RPh, PharmD [facility] Consult Service is available daily [phone]. Please search for covering pharmacist name via [employer] or Groups --> Pharmacy --> Anti-Coagulation Consult Pharmacist (on 3rd page). If no response via [employer], please page [phone]. Follow up b/l foot wounds. No new [...] yr M with PMH obstructive hydrocephalus s/p BLOW MOLD OPERATOR shunt in 1987, needing multiple revisions [...] normal limits and both old and new BLOW MOLD OPERATOR shunt tubing noted. At present patient is awake, follows commands, was able to tell his name, and that he was in hospital but not oriented to time. Per documentation patient had NCSE in May 2021, was on Vimpat, but it was discontinued as there was no evidence of recurrent seizures in july 2021 by Neurology at [facility], per daughter patient was on Dilantin for 31 yrs. Per daughter patient had seizures in the past and also felt he had staring episodes 10/26/2021 morning. Per daughter patient has been essentially bed bound in [place] since May 2021 but prior to that was independent Impressions: H/O hydrocephalus H/O seizure, H/O stroke Acute DVT H/O PE Plan: -MRI brain w/o contrast. Per daughter she would like MRI brain done to evaluate for strokes -CT head done during this admission today reported no hydrocephalus, ventricles within normal limits and both old and new BLOW MOLD OPERATOR shunt tubing noted -EEG mild to moderate slow, no seizures reported -Labs reviewed -Hydrocephalus management per Neurosurgery. At present patient does not have hydrocephalus on CT head done this admission. No Neurosurgery services available as inpatient in [facility]. Patient can follow up with Neurosurgery as [...] when he was admitted to [facility]. Per daughter she would want patient [...] interim. This note has been generated using TAKO dictation software. It may contain incorrect words, punctuation's and spellings that were not noted in the review of the note prior to signing. This note has been generated using TAKO dictation software. It may contain incorrect words, [...] LABALBU, AMYLASE, LIPASE in the last 72 hours.@BRIEFLAB([facility]) ABGs: )No results for input(s): [...] Radiology ACCESSION EXAM DATE/TIME PROCEDURE ORDERING PROVIDER [id number] 10/21/2021 15:30 EDT CR Calcaneus 2+ Views [id number] -SHRUTHI MALIK CPT code 78116 Reason For Exam (CR Calcaneus 2+ Views [...] Tomography ACCESSION EXAM DATE/TIME PROCEDURE ORDERING PROVIDER [id number] 10/26/2021 11:[address] Head or Brain w/o JUNIE PINEDA, SARINA Contrast CPT code 40271 Reason For Exam (CT Head or Brain w/o Contrast) hydrocephalus. thank you Report CLINICAL INFORMATION: Hydrocephalus. Shunt. 3 mm axial cuts through the head are obtained without IV contrast. The examination is compared to a previous study dated 06/29/2014. FINDINGS: Old BLOW MOLD OPERATOR shunt tubing is noted bilaterally. The [...] are clear. IMPRESSION: 1. Old and new BLOW MOLD OPERATOR shunt tubing. 2. No hydrocephalus. 3. [...] Imaging ACCESSION EXAM DATE/TIME PROCEDURE ORDERING PROVIDER [id number] 10/23/2021 11:08 EDT MRI Abdomen w/o Contrast WING SRIVASTAVA CPT code 12589 Reason For Exam (MRI Abdomen w/o Contrast) [...] Medicine ACCESSION EXAM DATE/TIME PROCEDURE ORDERING PROVIDER [id number] 10/21/2021 07:55 EDT NM Pulmonary Perfusion [id number] -SHAILESH MAY w/ Vent Aerosol CPT code 64991 A9567 Reason For Exam (NM Pulmonary Perfusion [...] Brachial Indices Extremity Bilateral Result Date: 10/22/2021 [facility] --- Ankle Brachial Index Report Patient Gurpreet : 1950 Study 10/21/2021 Name: Andrew Gonzalez (71yrs) Date: Age: 71 Account: [id number] Gender: M Loc: 444W BP: Ordering Physician: Shruthi Malik Radiology Orderly: Rody Cross RDMS, RVT Interpreting Physician: Carina Call --- Location: [facility] --- Indications: Foot wounds. Originally ordered as a full PVR. Ordering SECURITY ANALYST had to modify the order to ABIs [...] supine position. Images were obtained using a [employer] vascular ultrasound machine. --- Arterial pressure indices: [...] EXTREMITY BILATERAL VENOUS DUPLEX Result Date: 10/21/2021 [facility] --- Lower Extremity Venous Duplex Report Patient DO GurpreetB: 1950 Study 10/21/2021 Name: Andrew Hedrick71yrs) Date: Age: 71 Account: [id number] Gender: M Loc: 444 BP: Ordering Physician: May Cash Radiology Orderly: Rody Cross RDMS, RVT Interpreting Physician: Carina Call --- Location: [facility] --- Indications: Bilateral lower leg [...] supine position. Images were obtained using a [employer] vascular ultrasound machine. --- Venous flow and [...] Radiology ACCESSION EXAM DATE/TIME PROCEDURE ORDERING PROVIDER [id number] 10/21/2021 08:16 EDT CR Chest 1 View Frontal [id number] MAY BOGGS CPT code 55565 Reason For Exam (CR Chest 1 View [...] Tomography ACCESSION EXAM DATE/TIME PROCEDURE ORDERING PROVIDER [id number] 10/22/2021 13:[address] Abdomen/Pelvis (No SRIVASTAVA, WING PO, No IV) CPT code 93176 Reason For Exam (CT Abdomen/Pelvis (No PO, [...] 12:48 PM Consults Speech Language Pathology Facility/Department: [facility] Dysphagia Treatment Note NAME: [...] reactivity and state change, indicative of a uaet-gp-jeoeilti diffuse encephalopathy of nonspecific etiology. There are [...] Easy to chew diet/cut up. NEVILLE Jones M.A.CCC/STENCIL SPRAYER Time session ended: 1156 Total session minutes: 23 Images from the original note were not included. Hospitalist Progress Note 10/27/2021 10:40 AM [phone]: Please page me @ [phone] for patient care issues. [phone]: Please page repairer and checker for any issues@ night Subjective: Admit Date: [...] Services This report was created using the [employer] Speaking voice-activated system. Despite prompt dictation and careful editorial review, there may be subtle contextual errors in this report, due to misrecognition of the spoken word. [facility] ([facility]) Inpatient Warfarin Consult HPI: Andrew Sifuentes is a 71 y.o. 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 Pt [...] SNF. 4. Will provide warfarin education including [facility] warfarin booklet, if appropriate. Thank you for this consult Brionna Le, PharmD candidate Josie Gupta [facility], PharmD [facility] Consult Service is available daily [phone]. Please search for covering pharmacist name via [employer] or Groups --> Pharmacy --> Anti-Coagulation Consult Pharmacist (on 3rd page). If no response via PerfectServe, please page [phone]. I cleaned under patient's finger nails with [...] therapeutic status with Warfarin. Discussed with patient's staffing manager. Will continue to monitor. Total visit time [...] if concern Hydrocephalus Chronic WOODARD's - Revised BLOW MOLD OPERATOR shunt - daughter requested that pt have CT / MRI of brain and neurology be consulted, this was done. - Hydrocephalus management per Neurosurgery. At present patient does not have hydrocephalus on CT head done this morning. No Neurosurgery services available as inpatient in [facility]. Patient can follow up with Neurosurgery as outpatient and if ends up needing inpatient neurosurgery requirement then may need to be transferred to [facility]. Seizure history, unspecified - daughter requested [...] get report from nursing. Continue wound care. [facility] ([facility]) Inpatient Warfarin Consult HPI: Andrew Sifuentes is a 71 y.o. 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 Pt [...] PharmD [facility] Consult Service is available daily [phone]. Please search for covering pharmacist name via [employer] or Groups --> Pharmacy --> Anti-Coagulation Consult Pharmacist (on 3rd page). If no response via [employer], please page [phone]. Moon daughter stated that any of patient's family can call and obtain an update on patient's status. Speech Language Pathology Facility/Department: [facility] CLINICAL BEDSIDE SWALLOW EVALUATION [...] a small bore straw. Additionally discussed with STENCIL SPRAYER, agreeable to assess tomorrow. Recent Chest Xray/CT [...] and liquids between bites. Treatment Plan Requires STENCIL SPRAYER Intervention: Yes Duration of Treatment: 2 weeks [...] Education Response: Verbalizes understanding;Needs reinforcement Therapy Time STENCIL SPRAYER Individual Minutes Time In: 826 Time Out: 852 Minutes: 26 NEVILLE Jones 10/26/2021 9:20 AM Comprehensive Nutrition Assessment Type and Reason for Visit: Initial (DT referral for wounds) Nutrition Recommendations/Plan: 1. Recommend to continue: Easy to Chew diet with Thin Liquids as currently ordered and safe for patient to participate in. Discussed with: RN, SECURITY ANALYST, and STENCIL SPRAYER. STENCIL SPRAYER to assess tomorrow, best diet and liquid [...] & deltoids),Scapula (trapezius) Fluid Accumulation: Mild Extremities Tape Editor Strength: Not Performed Nutrition Assessment: 71 year [...] a small bore straw. Additionally discussed with STENCIL SPRAYER, agreeable to assess tomorrow. Nutrition Related Findings: [...] Anthropometric Measures: Height: 5' 7.01 (170.2 cm) [place] Body Weight (IBW): 148 lbs (67 kg) [...] On: Kcal/kg Weight Used for Energy Requirements: [place] (67.15 kg) Energy (kcal/day): 8787-1381 (27-32 kcal/kg IBW) --> increased need d/t wounds Weight Used for Protein Requirements: [place] (67.15 kg) Protein (g/day): 67-101 (1.0-1.5 g protein/kg IBW) Method Used for Fluid Requirements: Other (Comment) Fluid (ml/day): 9810-1034 mL daily or per MD Nutrition Diagnosis: [...] Plan of Care discussed with: Patient, RN, SECURITY ANALYST Edwin Goals: Goals: other (specify) Specify Other [...] to determine Puja Almanza RD, LD Contact: *[phone] Or Via Cloud Engines Hematology/Oncology Attending Progress Note SUBJECTIVE: Patient seen [...] IRON, TIBC, FERRITIN No results found for: [id number] No results found for: FOLATE PT 15.6 INR 1.5 CA 19 - 9 is 17 Protein S 138% Protein C 186% ASSESSMENT AND PLAN GI input appreciated. Patient continues with subtherapeutic INR. GI input appreciated. Discussed with patient's staffing manager. Will continue monitor. Total visit time > 35 minutes. [facility] ([facility]) Inpatient Warfarin Consult HPI: Andrew Sifuentes is a 71 y.o. 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 Pt [...] drug interactions and adjust dose accordingly. 3. [facility] will manage while inpatient and sign off at discharge. Patient resides in a SNF. 4. Will provide warfarin education including [facility] warfarin booklet, if appropriate. Thank you for this consult Brionna Le, PharmD candidate Josie Gupta RPh, PharmD [facility] Consult Service is available daily [phone]. Please search for covering pharmacist name via MDdatacorServe or Groups --> Pharmacy --> Anti-Coagulation Consult Pharmacist (on 3rd page). If no response via PerfectServe, please page [phone]. Progress Note 10/25/2021 9:36 AM Name: Andrew [...] if concern Hydrocephalus Chronic WOODARD's - Revised BLOW MOLD OPERATOR shunt DC planning - 10/25/21: INR [...] if concern Hydrocephalus Chronic WOODARD's - Revised BLOW MOLD OPERATOR shunt DC planning - Can be DC'd back to ECF once MRI done if no acute findings, MRI is done, defer to hem / onc on plan for that, awaiting chest PA with fluoro Patient seen and chart reviewed. Consult dictated. Will ask GI to assess concerning the etiology of liver lesions. Will continue to monitor. [facility] ([facility]) Inpatient Warfarin Consult HPI: Andrew Sifuentes is a 71 y.o. 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 Pt [...] drug interactions and adjust dose accordingly. 3. [facility] will manage while inpatient and sign off at discharge. Patient resides in a SNF. 4. Will provide warfarin education including [facility] warfarin booklet, if appropriate. Thank you for this consult Brionna Le, PharmD candidate Josie Gupta RPh, PharmD [facility] Consult Service is available daily [phone]. Please search for covering pharmacist name via [employer] or Groups --> Pharmacy --> Anti-Coagulation Consult Pharmacist (on 3rd page). If no response via Cloud Eng[employer], please page [phone]. Follow up foot wounds Patient is more alert this morning. Waffle boots are on Ulcer left heel ulcer right foot Foot drop PE, chart reviewed. Patient relates that he does not walk at home. c ontinue wound care. Images from the original note were not included. Hospitalist Progress Note 10/23/2021 1:47 PM [phone]: Please page me ([phone]) or perfect serve me for patient care issues. [phone]: Please page IMS night Hospitalist for any [...] if concern Hydrocephalus Chronic WOODARD's - Revised BLOW MOLD OPERATOR shunt DC planning - Can be [...] Hemorrhoids Hydrocephalus, adult (HCC) Kidney stone Neuropathy BLOW MOLD OPERATOR (ventriculoperitoneal) shunt status Medications: sodium chloride [...] PLT [phone]* BMP: Recent Labs 10/21/210 10/22/21 0404 10/23/21 0458 NA 139 139 [...] of Hospitalist Medicine Inpatient Medical Services PAGER: [phone] Nutrition rescreen completed. Pt referred to RD for foot ulcers. Occupational Therapy Facility/Department: [facility] Occupational Therapy Initial Assessment Name: Andrew Sifuentes : 1950 Date of Service: 10/23/2021 OT eval and treat orders received. Chart reviewed. Per notes pt from [facility], is Boaz lift at baseline, non-ambulatory, and requires assist for all ADLs. Will d/c OT orders. Elizabeth Gutierrez OT Physical Therapy Facility/Department: [facility] Physical Therapy Initial Assessment Name: Andrew Sifuentes : 1950 Date of Service: 10/23/2021 PT eval and treat orders received. Chart reviewed. Per notes pt from [facility], is Boaz lift at baseline, non-ambulatory. Will d/c PT orders. Lloyd Silva PT [facility] ([facility]) Inpatient Warfarin Consult HPI: Andrew Sifuentes is a 71 y.o. 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 Pt [...] PharmD [facility] Consult Service is available daily [phone]. Please search for covering pharmacist name via Cloud Eng[employer] or Groups --> Pharmacy --> Anti-Coagulation Consult Pharmacist (on 3rd page). If no response via Cloud Eng[employer], please page [phone]. Department of Podiatry Attending Consult Note Reason for Consult: Wound care Requesting Physician: MD Shailesh CHIEF COMPLAINT: Foot wounds HISTORY OF PRESENT ILLNESS: The patient is a 71 y.o. male with b/l foot wounds. Patient is awake , but not answering questions. 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 Hospitalist Progress Note 10/22/2021 6:33 AM [phone]: Please page me ([phone]) or perfect serve me for patient care issues. [phone]: Please page IMS night Hospitalist for any issues. Subjective: Admit Date: 10/21/2021 PCP: MONIKA STALEY MD Room#: 946/146 Admitting Synopsis: 71 y/o male presents from [...] consider MRI if concern Hydrocephalus - Revised BLOW MOLD OPERATOR shunt Interval History: No overnight issues. 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 Hospitalist Progress Note 10/21/2021 5:31 PM [phone]: Please page me ([phone]) or perfect serve me for patient care issues. [phone]: Please page IMS night Hospitalist for any [...] Will need chronic OAC Hydrocephalus - Revised BLOW MOLD OPERATOR shunt Interval History: No overnight issues. 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 Her phone number is [phone] to speak with whomever was attempting to reach out to her. documented in this encounter [facility] Work Phone: 10-17-2021 Miscellaneous Notes Mr. Sifuentes missed his hospital stay follow-up appointment w. Dr. Lim today. Called to Reschedule. Could not get through. Subscriber you have dialed not in service - was the automated voice mail. Unable to leave . No other phone# available. Ramya Negro Event Planning Intern [facility] documented in this encounter [facility] 08-19-2021 Note [facility] 08-19-2021 Note [facility] 08-18-2021 Note [facility] 08-18-2021 Note [facility] 08-17-2021 Note [facility] 08-17-2021 Note [facility] 08-16-2021 Note [facility] 08-16-2021 Note HNO ID: [id number] Author: Katt Kelsey DO Service: Hospital Medicine Author Type: Physician Type: Plan of Care Filed: 08/16/2021 12:26 PM Note Text: Spoke with RN that line is a PICC. Katt Kelsey DO 08/16/2021 12:26 PM [facility] 08-16-2021 Note [facility] 08-16-2021 Note [facility] 08-15-2021 Note [facility] 08-15-2021 Note [facility] 08[facility]15-2021 Note [facility] 08-14-2021 Note [facility] 08-14-2021 Note [facility] 08-13-2021 Note [facility] 08-13-2021 Note [facility] 08-13-2021 Note [facility] 08-13-2021 Note HNO ID: [id number] Author: Interface Note Service: ? Author Type: ? Type: Progress Notes Filed: 08/13/2021 3:10 AM Note Text: Epic Scheduled Downtime: 08/13/2021 1:08:47 AM to 08/13/2021 2:53:47 AM [facility] 08-12-2021 Note [facility] 08-12-2021 Note [facility] 08[facility]12-2021 Note [facility] 08-11-2021 Note [facility] 08-11-2021 Note [facility] 08[facility]11-2021 Note [facility] 08-11-2021 Note [facility] 08[facility]11-2021 Note [facility] 08-11-2021 Note [facility] 08-10-2021 Note [facility] 08-10-2021 Note [facility] 08-10-2021 Note [facility] 08-10-2021 Note [facility] 08-09-2021 Note HNO ID: [id number] Author: Shannon Brooks RN Service: ? Author Type: Registered Nurse Type: Nursing Progress Note Filed: 08/09/2021 7:33 PM Note Text: Report called to unit [facility] 08-09-2021 Note [facility] 08-09-2021 Note [facility] 08-09-2021 Note [facility] 08-08-2021 Note [facility] 08-08-2021 Note [facility] 08-08-2021 Note [facility] 08-07-2021 Note [facility] 08-07-2021 Note [facility] 08-07-2021 Note [facility] 08[facility]07-2021 Note [facility] 08[facility]07-2021 Note [facility] 08-06-2021 Note [facility] 08-06-2021 Note [facility] 08[facility]06-2021 Note [facility] 08-05-2021 Note [facility] 08[facility]05-2021 Note [facility] 08-05-2021 Note [facility] 08-04-2021 Note [facility] 08-04-2021 Note [facility] 08-04-2021 Note [facility] 08-03-2021 Note [facility] 08-03-2021 Note [facility] 08-03-2021 Note [facility] 08-02-2021 Note [facility] 08-02-2021 Note [facility] 08-02-2021 Note [facility] 08-01-2021 Note [facility] 08-01-2021 Note [facility] 08[facility]01-2021 Note [facility] 08-01-2021 Note [facility] 07-31-2021 Note [facility] 07-31-2021 Note [facility] 07-30-2021 Note [facility] 07[facility]30-2021 Note [facility] 07-30-2021 Note [facility] 07-29-2021 Note [facility] 07-29-2021 Note [facility] 07-29-2021 Note [facility] 07-28-2021 Note [facility] 07-28-2021 Note [facility] 07-28-2021 Note [facility] 07-27-2021 Note [facility] 07-27-2021 Note [facility] 07-27-2021 Note [facility] 07-26-2021 Note [facility] 07-26-2021 Note [facility] 07[facility]26-2021 Note [facility] 07-26-2021 Note [facility] 07-26-2021 Note [facility] 07-25-2021 Note [facility] 07[facility]25-2021 Note [facility] 07-25-2021 Note [facility] 07[facility]25-2021 Note [facility] 07-24-2021 Note [facility] 07-24-2021 Note [facility] 07-24-2021 Note [facility] 07-23-2021 Note [facility] 07-23-2021 Note [facility] 07-23-2021 Note [facility] 07-23-2021 Note [facility] 07-23-2021 Note [facility] 07[facility]22-2021 Note [facility] 07-22-2021 Note [facility] 07-22-2021 Note [facility] 07-21-2021 Note [facility] 07-21-2021 Note [facility] 07-21-2021 Note [facility] 07-21-2021 History of Past i [...] history of fever, elevated WBC, RP hematoma BLOW MOLD OPERATOR shunt tip grew anaerobic gram positive cocci 06/08/2021 PLAN: BLOW MOLD OPERATOR shunt tip sent to [facility] main, awaiting cx Continue Meropenem per I.D [...] - following CSF studies; 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 for PUBLIC HOUSING INTERVIEWER infection at this time - ID following- Continue antibiotics: Meropenem -CSF leak from EVD site, appreciate NSGY recs> stat repeat CTH on 06/07 d/t concern for CSF leak, cephalematoma, CTH unremarkable -Tolerating TF - SBT WTE - PICC line placed documented as of this encounter (statuses as of 10/17/2021) [facility]03-17-2022 [facility]03-16-2022 [facility]03-16-2022 [facility]03[facility]16-2022 Note [facility]03-16-2022 [facility] 07-19-2021 [facility]03-15-2022 [facility]03-15-2022 [facility]03-14-2022 [facility]03-14-2022 [facility]03-13-2022 [facility]03-13-2022 [facility]03-12-2022 Note [facility]03-12-2022 [facility] 07-15-2021 [facility]03-11-2022 [facility]03-10-2022 [facility]03-10-2022 [facility]03-10-2022 [facility]03-09-2022 [facility]03-09-2022 [facility]03-09-2022 Note [facility]03-09-2022 [facility] 07-12-2021 [facility]03-08-2022 [facility]03-07-2022 [facility]03-07-2022 [facility]03-07-2022 [facility]03-07-2022 [facility]03-06-2022 [facility]03-06-2022 Note [facility]03-05-2022 [facility] 07-09-2021 [facility]03-05-2022 [facility]03-05-2022 [facility]03-05-2022 NoteHNO ID: [id number] Author: Lizette Valderrama RN Service: Nursing Author Type: Registered Nurse Type: Nursing Progress Note Filed: 07/09/2021 1:41 AM Note Text: Report called to [facility]03-04-2022 NoteHNO ID: [id number] Author: Lizette Valderrama RN Service: Nursing Author Type: Registered Nurse Type: Nursing Progress Note Filed: 07/08/2021 8:57 PM Note Text: [address]49 back to PACU [address] [place], [place] [address]03-04-2022 NoteHNO ID: [id number] Author: Sukhi Chery APRN.CNP Service: ? Author Type: Nurse Practitioner Type: Progress Notes Filed: 07/09/2021 6:46 PM Note Text: Connected Care Unit Progress Note Patient Name: Andrew Sifuentes Patient Facility: [facility] Admit Date 06/28/2021 Level of Care: Skilled [...] Dept Phone 07/21/2021 11:00 AM NICOLE LIM [phone] HPI: (Per Dr. Beltran) Andrew Sifuentes is being seen today for long term facility (SNF) admission AND management of weakness, tube feed, infected retroperitoneal infection and seizure. ? This is a 71 year old male who presents from [facility] with primary admitting diagnosis of Seizure, [...] CT brain concerning for hydrocephalus. Tip of BLOW MOLD OPERATOR shunt was found to be in [...] slow to respond. Ordered to transfer to [facility] ED for evaluation of neurological and [...] changes in co (more content not included)... [facility]03-04-2022 [facility]03-04-2022 [facility]03-02-2022 NoteHNO ID: [id number] Author: Sukhi Chery APRN.CNP Service: ? Author Type: Nurse Practitioner Type: Progress Notes Filed: 07/09/2021 6:20 PM Note Text: Connected Care Unit Progress Note Patient Name: Andrew Sifuentes Patient Facility: [facility] Admit Date 06/28/2021 Level of Care: Skilled [...] Dept Phone 07/21/2021 11:00 AM NICOLE LIM [phone] HPI: (Per Dr. Beltran) Andrew Sifuentes is being seen today for long term facility (SNF) admission AND management of weakness, tube feed, infected retroperitoneal infection and seizure. ? This is a 71 year old male who presents from [facility] with primary admitting diagnosis of Seizure, [...] CT brain concerning for hydrocephalus. Tip of BLOW MOLD OPERATOR shunt was found to be in [...] Pharynx: Oropharynx is clear. (more content not included)...[facility]02-28-2022 NoteHNO ID: [id number] Author: Sukhi Chery APRN.VICTORIANO Service: ? Author Type: Nurse Practitioner Type: Progress Notes Filed: 07/09/2021 6:07 PM Note Text: Connected Care Unit Progress Note Patient Name: Andrew Sifuentes Patient Facility: [facility] Admit Date 06/28/2021 Level of Care: Skilled [...] but nursing notes it was drawn by cloth covered helmet puller as vancomycin was being infused; reordered trough - PICC Line Intact - No fevers or chills per patient or staff (R53.81) Debility - Certify therapies - Maintain high falls risk precautions - pt/staff verbalize understanding validated via teach back - Monitor safety awareness Appointments for Next 60 Days Date Time Provider Location Dept Phone 07/21/2021 11:00 AM NICOLE LIM [phone] HPI: (Per Dr. Beltran) Andrew Sifuentes is being seen today for long term facility (SNF) admission AND management of weakness, tube feed, infected retroperitoneal infection and seizure. ? This is a 71 year old male who presents from [facility] with primary admitting diagnosis of Seizure, [...] CT brain concerning for hydrocephalus. Tip of BLOW MOLD OPERATOR shunt was found to be in [...] to facility records. OBJECTIVE: Labs/diagnostics: 07/04/2021 Glucose=91 Ji=118 K=3.8 Ta=555 CO2=24 BUN=14 Creatinine=0.5 BOW=043 Ca=9.0 Protein,Total=6.7 Albumin=3.6 EpiQuvv=841 AST=15 ALT=21 Bilirubin,Totall=0.5 WBC=10.7 RBC=4.04 Hgb=10.9 Hct=35.3 Xugnfcya=185 VancomycinTr (more content not included)...[facility]02-24-2022 NoteHNO ID: [id number] Author: Sukhi Chery APRN.VICTORIANO Service: ? Author Type: Nurse Practitioner Type: Progress Notes Filed: 07/09/2021 5:43 PM Note Text: Connected Care Unit Progress Note Patient Name: Andrew Sifuentes Patient Facility: [facility] Admit Date 06/28/2021 Level of Care: Skilled [...] Dept Phone 07/21/2021 11:00 AM NICOLE LIM [phone] HPI: (Per Dr. Beltran) Andrew Sifuentes is being seen today for long term facility (SNF) admission AND management of weakness, tube feed, infected retroperitoneal infection and seizure. ? This is a 71 year old male who presents from [facility] with primary admitting diagnosis of Seizure, [...] CT brain concerning for hydrocephalus. Tip of BLOW MOLD OPERATOR shunt was found to be in [...] to facility records. OBJECTIVE: Labs/diagnostics: 07/01/2021 Glucose=83 Yz=301 K=4.1 Ta=430 CO2=27 BUN=22 Creatinine=0.6 EUF=352 Ca=8.7 WBC=10.8 RBC=3.40 Hgb=9.3 Hct=29.9 Ojviinec=711 Vital Signs: BP 128/80 Pulse 77 Temp 36.7 ?C (98 ?F) Resp 20 Ht 182.9 cm (6') Wt 113 kg (249 lb 3.2 oz) SpO2 96% BMI 33.80 kg/m? Physical Exam: Physical Exam Vitals reviewed. Constitutional: General: He is not in acute distress. (more content not included)...[facility]02-22-2022 [facility]02-22-2022 [facility]02-21-2022 [facility]02-21-2022 Note [facility]02-20-2022 [facility] 06-26-2021 [facility]02-19-2022 [facility]02-19-2022 [facility]02-18-2022 [facility]02-18-2022 [facility]02-18-2022 [facility]02-17-2022 [facility]02-17-2022 Note [facility]02-17-2022 [facility] 06-22-2021 NoteHNO ID: [id number] Author: Xiomy England RN Service: Nursing Author Type: Registered Nurse Type: Nursing Progress Note Filed: 06/22/2021 7:22 PM Note Text: RT contacted as pt has wheezing auscultated and same auditory. For prn Treatment.[facility]02-16-2022 [facility]02-16-2022 [facility]02-16-2022 [facility]02-16-2022 [facility]02-16-2022 [facility]02-15-2022 [facility]02-15-2022 Note [facility]02-15-2022 [facility] 06-21-2021 [facility]02-14-2022 [facility]02-14-2022 [facility]02-14-2022 [facility]02-14-2022 [facility]02-14-2022 [facility]02-13-2022 [facility]02-13-2022 Note [facility]02-13-2022 [facility] 06-19-2021 [facility]02-13-2022 [facility]02-12-2022 [facility]02-12-2022 [facility]02-12-2022 [facility]02-12-2022 [facility]02-12-2022 [facility]02-12-2022 Note [facility]02-12-2022 NoteHNO ID: [id number] Author: Interface Note Service: ? Author Type: ? Type: Progress Notes Filed: 06/18/2021 3:10 AM Note Text: Epic Scheduled Downtime: 06/18/2021 1:00:00 AM to 06/18/2021 2:27:00 [facility]02-11-2022 [facility]02-11-2022 Note [facility]02-11-2022 [facility] 06-17-2021 [facility]02-11-2022 [facility]02-11-2022 [facility]02-10-2022 [facility]02-10-2022 [facility]02-10-2022 [facility]02-10-2022 [facility]02-10-2022 Note [facility]02-10-2022 [facility] 06-15-2021 [facility]02-09-2022 NoteHNO ID: [id number] Author: Lamonte Kline DO Service: Neurology ICU Author Type: Resident Type: Plan of Care Filed: 06/15/2021 6:21 PM Note Text: Patient's daughter Melissa updated on plan of care and critical condition, all questions answered.[facility]02-09-2022 [facility]02-09-2022 [facility]02-09-2022 [facility]02-09-2022 [facility]02[facility]09-2022 Note [facility]02-09-2022 [facility] 06-15-2021 [facility]02-08-2022 [facility]02-08-2022 [facility]02-08-2022 [facility]02-08-2022 [facility]02-07-2022 [facility]02[facility]07-2022 [facility]02-07-2022 Note [facility]02-07-2022 [facility] 06-12-2021 [facility]02-06-2022 [facility]02-06-2022 [facility]02-05-2022 [facility]02-05-2022 [facility]02[facility]04-2022 [facility]02[facility]04-2022 [facility]02-04-2022 Note [facility]02-04-2022 [facility] 06-09-2021 [facility]02-03-2022 [facility]02-03-2022 [facility]02-03-2022 [facility]02-02-2022 [facility]02-02-2022 NoteHNO ID: [id number] Author: Luis Diaz RN Service: ? Author Type: Registered Nurse Type: Nursing Progress Note Filed: 06/08/2021 9:23 AM Note Text: Patient off the floor to OR at this time.[facility]02-02-2022 [facility]02-02-2022 [facility] 06-08-2021 NoteHNO ID: [id number] Author: Eloise Samuel RN Service: ? Author Type: Registered Nurse Type: Nursing Progress Note Filed: 06/08/2021 12:46 AM Note Text: Dr. Brito notified of changes throughout shift. [facility] 06-07-2021 NoteHNO ID: [id number] Author: Eloise Samuel RN Service: ? Author Type: Registered Nurse Type: Nursing Progress Note Filed: 06/07/2021 8:01 PM Note Text: Neuro surg ADA ACCOMMODATION CONSULTANT notified of downward deviation of pupils. No new orders at this time.[facility]02-01-2022 [facility]02-01-2022 [facility]02-01-2022 [facility]02-01-2022 [facility]01-31-2022 [facility]01-31-2022 [facility]01-31-2022 Note [facility]01-31-2022 [facility] 06-05-2021 [facility]01-30-2022 [facility]01-30-2022 [facility]01-29-2022 [facility]01-29-2022 NoteHNO ID: [id number] Author: Jermaine Miller PA-C Service: Neurosurgery Author Type: Physician Printed Circuit Board Layout Designer Type: Plan of Care Filed: 06/04/2021 1:59 PM Note Text: Discussed with Dr. Charles CT brain results. At this time, continue with EVD at 5 [facility]01-29-2022 [facility] 06-04-2021 [facility]01-28-2022 [facility]01-28-2022 NoteHNO ID: [id number] Author: Mauricio Frank DO Service: Neurology ICU Author Type: Physician Type: Plan of Care Filed: 06/03/2021 2:38 PM Note Text: I spoke with Melissa and updated her over the phone. Mauricio Frank, [facility]01-28-2022 [facility]01-28-2022 [facility]01-27-2022 [facility]01-27-2022 [facility]01-27-2022 Note [facility]01-26-2022 [facility] 06-01-2021 [facility]01-26-2022 [facility]01-26-2022 [facility]01-26-2022 [facility]01-25-2022 [facility]01[facility]25-2022 [facility]01-25-2022 [facility]01-25-2022 Note [facility]01-25-2022 [facility] 05-31-2021 [facility] Diagnosis Leg swelling- Primary Swelling of limb Acute deep vein thrombosis (DVT) of proximal vein of lower extremity, unspecified laterality (HCC) DVT, lower extremity, recurrent, unspecified laterality (HCC) Moderate malnutrition (HCC) Malnutrition of moderate degree History of seizures Personal history of other disorders of nervous system and sense organs documented in this encounter [facility] Work Phone: Evaluation noteNo assessment information available [facility] Work Phone: Evaluation note* Diagnosis Other fatigue- Primary documented in this encounter [facility] Work Phone: Evaluation note* Diagnosis Heel ulceration, left, with unspecified severity (HCC)- Primary documented in this encounter [facility] Work Phone: Evaluation note* Diagnosis Fall, initial encounter- Primary Anticoagulated Encounter for long-term (current) use of anticoagulants documented in this encounter [facility] Work Phone: Evaluation note* Diagnosis Left flank pain- Primary Abdominal pain, unspecified site Calculus of ureter Disease of prostate Unspecified disorder of prostate BPH with urinary obstruction Hypertrophy of prostate with urinary obstruction and other lower urinary tract symptoms (LUTS) documented [facility]* Diagnosis Left flank pain Abdominal pain, unspecified site Calculus of ureter [facility]* Diagnosis Left flank pain- Primary Abdominal pain, unspecified site BPH with urinary obstruction Hypertrophy of prostate with urinary obstruction and other lower urinary tract symptoms (LUTS) History of kidney stones [facility]* Name Dates Details Instructions not documented [id number] Work Phone: Instructions* Name Dates Details Instructions not documented [id number] [address] [place] Work Phone: Reason for referral (narrative)No reason for referral information availableChildren'S [facility] For [facility] Work Phone: Advance Directives No Advanced Directives Records FoundDocuments on File Type Date Recorded Patient Family Assistant Expl anation Advance Directives and Living Will Power of Tea Room Manager Documents on File Type Date Recorded Patient Family Assistant Expl anation Advance Directive(s) 06/02/2021 2:45 PM Advance Directive(s) 05/29/2021 8:25 PM Latest Code Status on File Code Status Date Activated Date Inactivated Comments Full Code 08/12/2021 2:20 PM 08/19/2021 9:17 PM Full Code Order Discussed With: Patient Full Code 06/17/2021 10:23 AM 06/28/2021 8:04 PM Full Code Order Discussed With: Surrogate Zaki on Maker Surrogate Decision Maker Name: Moon Surrogate Decision Maker Relationship: 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 Adult Children (route sales representative) Documents on File Type Date Recorded Patient Family Assistant Expl anation ACP-Advance Directive ACP-Power of Tea Room Manager Latest Code Status on File Code Status Date Activated Date Inactivated Comments Full Code 10/21/2021 4:09 AM Healthcare Agents on File Name Relationship Healthcare Agent Relationshi p Communication Melissa Gurpreet Child Primary Decision Maker deann Gurpreet Child Secondary Decision Maker Documents on File Type Date Recorded Patient Family Assistant Expl anation ACP-Advance Directive ACP-Power of Tea Room Manager ACP-Do Not Resuscitate 11/01/2021 7:03 AM Latest Code Status on File Code Status Date Activated Date Inactivated Comments Full Code 10/21/2021 4:09 AM 10/29/2021 7:25 PM Healthcare Agents on File Name Relationship Healthcare Agent Relationshi p Communication Melissa Gurpreet Child Primary Decision Maker deann Gurpreet Child Secondary Decision Maker Documents on File Type Date Recorded Patient Family Assistant Expl anation ACP-Do Not Resuscitate 11/03/2021 10:15 AM ACP-Do Not Resuscitate 11/01/2021 7:03 AM Healthcare Agents on File Name Relationship Healthcare Agent Relationshi p Communication Melissa Gurprete Child Primary Decision Maker deann Gurpreet Child Secondary Decision Maker Documents on File Type Date Recorded Patient Family Assistant Expl anation ACP-Do Not Resuscitate 11/03/2021 10:15 [...] Documents on File Type Date Recorded Patient Family Assistant Expl anation DNR (Do Not Resuscitate) 10/31/2021 DNR (Do Not Resuscitate) 10/21/2021 Documents on File Type Date Recorded Patient Family Assistant Expl anation DNR (Do Not Resuscitate) 10/31/2021 [...] :00am SENIOR CARE LAB WORK March 17 5:00am SENIOR CARE LAB WORK March 18 5:00am SENIOR CARE LAB WORK March 19 4 4:00am SENIOR CARE LAB WORK March 20 5:00am SENIOR CARE LAB WORK March 24 5:00am SENIOR CARE LAB WORK March 27 5:00am LABWORK March 31, 2024 5:00am SENIOR CARE LAB WORK April 04 5:00am LABWORK April [...] Contact Urology Diagnoses Other fatigue Lanette Munguia, [address] [place] [address] [facility] [address] [place] [address] Referral ID Status Reason Start Date Expiration Date V isits Requested Visits Authorized [id number] Open Specialty Services Required 11/01/2021 11/01/2022 1 1 Scheduling Instructions [facility] - [address] , [address] [place], [place] [address] Specialty Diagnoses / Procedures Referred By Aki kumari Referred To Contact IP Unit Diagnoses Heel ulceration, left, with unspecified severity (HCC) Henry Hidalgo PA [address] [place] [address] [facility] [address] [place] [id number] Referral ID Status Reason Start Date Expiration Date V isits Requested Visits Authorized [id number] Open Specialty Services Required 12/22/2021 12/22/2022 1 1 Scheduling Instructions [facility] [address] [place] [address] Comments Please use the parking lot located on [address] or [address]. There are handicap parking spots located in a small lot beside the wound care entrance off of [address]. Please be advised there is a small incline from those handicap spots to our main door. Bring photo ID and insurance card to photocopy. Wear loose fitting clothing (to easily access wound). Bring list of medications (or can be sent by office). Check in at Registration for your first visit. Please call us directly with any questions [phone]. We look forward to helping you heal. Specialty Diagnoses / Procedures Referred By Contac t Referred To Contact Radiology Diagnoses Left flank pain Calculus of ureter Procedures CT abdomen pelvis wo IV contrast Rebecca Buck MD [address] [place] [address] Referral ID Status Reason Start Date Expiration Date V isits Requested Visits Authorized [id number] Pending Review 08/13/2023 08/12/2024 1 1 Referral ID Status Reason Start Date Expiration Date Visits Re quested Visits Authorized [id number] Closed 08/17/2023 09/16/2023 1 1 Additional Source Comments Source Comments (unrecognize d section and content) In the event this informatio n is protected by the Federal Confidentiality of Alcohol and Drug Abuse Patient Records regulations: The Federal rules restrict any use of the information to criminally investigate or prosecute any alcohol or drug abuse patient.[facility] the event this information is protected by the Federal Confidentiality of Alcohol and Drug Abuse Patient Records regulations: The Federal rules restrict any use of the information to criminally investigate or prosecute any alcohol or drug abuse patient.[facility] (unrecognized sect ion and content) No Status Records FoundNo Status Records FoundNo Status Records FoundNo Status Records FoundNo Status Records FoundNo Status Records FoundNo Status Records FoundNo Status Records FoundNo Status Records FoundNo Status Records Found INFORMATION SOURCE (unrecogn ized section and content) DATE CREATED AUTHOR 05/20/2021 [facility] DATE CREATED AUTHOR AUTHOR'S ORGANIZ ATION 06/07/2021 [facility] DATE CREATED AUTHOR AUTHOR'S ORGANIZ ATION 08/02/2021 [facility] DATE CREATED AUTHOR AUTHOR'S ORGANIZ ATION 12/09/2021 [facility] DATE CREATED AUTHOR AUTHOR'S ORGANIZ ATION 12/29/2021 [facility] DATE CREATED AUTHOR AUTHOR'S ORGANIZ ATION 02/04/2022 [facility] DATE CREATED AUTHOR AUTHOR'S ORGANIZ ATION 03/03/2022 [facility] DATE CREATED AUTHOR AUTHOR'S ORGANIZ ATION 09/15/2023 [facility] DATE CREATED AUTHOR AUTHOR'S ORGANIZ ATION 12/31/2024 [facility] Reason for Visit (unrecogniz ed section and content) Reason Comments Missed Appointment Reason Comments Leg Swelling Blood clots Reason Comments Altered Mental Status Pt presents to ED via [facility] for complaint listed. Pt is from [place] [facility]. Pt's LKW was 1000 hours today. Per EMS, pt had a - [place]. Pt denies CP, SOB, and N/V. Pt seems slow to respond, slightly confused at this time. Reason Comments Osteomyelitis Patient from [facility] did xrays on left lower leg and [...] Buck MD [address] [place] [address] Referral ID Status Reason Start Date Expiration Date Visits Re quested Visits Authorized [id number] Closed 08/17/2023 09/16/2023 1 1 Reason Comments [...] July 24, 2024 End: July 24, 2024 aKron NOVAK MD Referring Provider Active Start: July [...] Inactive Member Role Status Dates Dr. Monika Satley MD Primary Care Provider Active Start: August [...] Status Dates Carlos NOVAK Attending Provider Active Wigs Salesperson Relationship Specialty Start Date End Date Mateus Burris [address] [place] [address] PCP - General Family Practice 11/12/19 Wigs Salesperson Relationship Specialty [place] [address] [place] [address] PCP - General Family Medicine 09/09/20 Wigs Salesperson Relationship Specialty [place] [address] [place] [address] PCP - General Family Medicine 09/09/20 Wigs Salesperson Relationship Specialty [place] [address] [place] [address] PCP - General Family Medicine 09/09/20 Wigs Salesperson Relationship Specialty Start Date End Date Carlos Cavazos MD [address] [place] [address] PCP - General Internal Medicine 02/20/22 Team [...] Monika Staley MD Primary Care Provider Active Wigs Salesperson Relationship Specialty Start Date End Date Carlos Cavazos [address] [place] [phone] PCP - General 12/21/21 Rebecca Buck MD [address] [place] [address] Surgeon Urology 06/25/23 Team Status: Inactive Member [...] NOVAK Attending Provider, Referring Provi lupillo Active Wigs Salesperson Relationship Specialty Start Date End Date MaribelCarlos meredith [address] [place] [phone] PCP - General 12/21/21 Rebecca Buck MD [address] [address] Surgeon Urology 06/25/23 Wigs Salesperson Relationship Specialty Start Date End Date MaribelCarlos meredith [address] [place] [phone] PCP - General 12/21/21 Rebecca Buck MD [address] [address] Surgeon Urology 06/25/23 Wigs Salesperson Relationship Specialty Start Date End Date Kenny Carlos [address] [place] [phone] PCP - General 12/21/21 Rebecca Buck MD [address] [address] Surgeon Urology 06/25/23 Wigs Salesperson Relationship Specialty Start Date End Date Kenny Carlos [address] [place] [phone] PCP - General 12/21/21 Rebecca Buck MD [address] [address] Surgeon Urology 06/25/23 Wigs Salesperson Relationship Specialty Start Date End Date Carlos Cavazos [address] [place] [phone] PCP - General 12/21/21 Rebecca Buck MD [address] [address] Surgeon Urology 06/25/23 Wigs Salesperson Relationship Specialty Start Date End Date Carlos Cavazos [address] [place] [phone] PCP - General 12/21/21 Rebecca Buck MD [address] [address] Surgeon Urology 06/25/23 Team Status: Inactive Member Role Status Dates Dr. Monika Staley MD Primary Care Provider Active Start: March 13, 2024 End: March 13, 2024 [facility] Attending [facility] Active Start: March 13, [...] March 17, 2024 End: March 17, 2024 [facility] Attending [facility] Active Start: March 17, 2024 End: March 17, 2024 Team Status: Inactive Member Role Status Dates Dr. Monika Staley MD Primary Care Provider Active Start: March 18, 2024 End: March 18, 2024 [facility] Attending Provider Active Start: March 18, [...] March 20, 2024 End: March 20, 2024 [facility] Attending Provider Active Start: March 20, [...] March 27, 2024 End: March 27, 2024 [facility] Attending Provider Active Start: March 27, [...] Care Provider Active Start: July 07, 2024 [facility] Attending Provider Active Start: July 07, [...] 11, 2024 End: July 11, 2024 Carlos NVOAK Attending Provider Active Sta rt: July 11, [...] 0900, Until Discontinued 911 (Given - Provider: Rosanen Hoff RN)143 (Given - Provider: Rosanne Hoff RN)2035 (Given [...] mg, Oral, ONCE Warfarin, 1 dose, On Sun10/27/21 at 1800, Indication of Use: Treatment-DVT/PE, History [...] BE BASED ON THE PRIMARY CLINICAL RECORDS. [facility] [employer] [facility]. provides no warranty or guarantee of the accuracy or completeness of information in this document.
[2025-01-01 09:29] LABS: Prothrombin Time (Protime)PT. 29.1 SECONDS (11.7-14.9)
== END ==
LOC: OLS.SANC 05:00
PROVIDERS: PCP General Practice
DX: Z79.01 Long term (current) use of 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 (principal)
CPT/HCPCS: 36415; 85610

== ENCOUNTER → 2025-01-06 | Outpatient (REF) | payer MEDICARE, MEDICAID, SELFPAY ==
--- OUTSIDE RECORDS SUMMARY | 2025-01-06 04:30 | XMS RPT_ITS | CCD ---
Author Organization [facility] Care Team Providers Care Thread Inspector Name Role Phone Mateus Burris Primary Care Provider [phone] Monika Staley Unavailable Unavailable Leonor, Maddy L [...] Unavailable Unavailable Mateus Burris Primary Care Provider [phone] Monika Staley MD Primary Care Provider Monika Staley MD Primary Care Provider Carlos Cavazos Primary Care Unavailable Carlos Cavazos Referring Unavailable Cliff Espinoza Attending Unavailable Carlos Cavazos Primary Care Unavailable Carlos Cavazos Referring Unavailable Carlos Cavazos Attending Unavailable Carlos Cavazos Attending Unavailable Carlos Cavazos Primary Care Unavailable Carlos Cavazos Referring Unavailable PROVIDER, UNKNOWN Referring Unavailable Matesu Burris Primary Care Unavailable Karon Corrales Attending Unavailable Carlos Cavazos MD Primary Care Provider [phone] PROVIDER, UNKNOWN Primary Care Unavailable PROVIDER, UNKNOWN Referring Unavailable LANETTE MUNGUIA Attending Unavailable SHARON HSIEH Attending Jeanine vailable PROVIDER, UNKNOWN Primary Care Unavailable PROVIDER, UNKNOWN Referring Unavailable PROVIDER, UNKNOWN Referring Unavailable MATEUS BURRIS Primary Care Unavailabl DANTE Barrera Attending Unavailable Kenyn, Carlos Primary Care Provider [phone] Quinn VALLADARES, Rebecca L Unavailable Quinn VALLADARES, Rebecca L Unavailable REBECCA BUCK Attending Unavailable REBECCA BUCK Referring Unavailable CARLOS CAVAZOS Primary Care Unavailable REBECCA BUCK Attending Unavailable KENNY, CARLOS Primary Care Unavailable REBECCA BUCK Attending Unavailable KENNY, CARLOS Primary Care Unavailable Luís VALLADARES, Dr. Monika Horner Primary Care Provider [facility] Attending Provider [phone] Carlos Nelson Attending Provider Jonh Pascual MD, [...] MD, Dr. Monika Horner Primary Care Provider Carols Nelson Attending Provider Unavailab le [place] Karon NOVAK Attending Unavail able Luís, [...] Primary Care Unavailable KatsaCarlos Villavicencio Attending Unavailable Ulís, Shiela Primary Care Unavailable [place] OLSKaron Attending Unavail able Luís, Shiela Primary Care Unavailable Katsaros OLS, Peter Attending Unavailable Luís, Shiela Primary Care Unavailable Crisostomo OLS, Babbaljeet Attending Unavailable Luís, Shiela Primary [facility]available [facility] Attending Unavai lable Luís, Shiela Primary Care [...] Luís, Shiela Primary Care Unavailable [facility] Attending Unavai lable Luís, Shiela Primary Care [...] OLS, Karon Attending Unavail able [place] OLS, Karon Referring Unavail able Luís, Shiela Primary Care Unavailable Katsaros OLS, Peter Attending Unavailable Luís, Shiela Primary Care Unavailable Katsaros OLS, Peter Attending Unavailable Luís, Shiela Primary Care Unavailable Katsaros OLS, Peter Attending Unavailable Luís, Shiela Primary Care Unavailable [place] OLS, Karon Attending Unavail able [place] OLS, Karon Referring Unavail able Luís, [...] able [place] OLS, Carlaaveer Attending Unavail able Ulís, Shiela Primary Care Unavailable [facility] Attending Unavai lable Luís, Shiela Primary Care Unavailable Katsaros OLS, Peter Attending Unavailable Luís, Shiela Primary Care Unavailable [facility] Attending Unavai lable Luís, Shiela Primary Care Unavailable Katsaros OLS, Peter Attending Unavailable Luís, Shiela Primary Care Unavailable [facility] Attending Unavai lable Luís, Shiela Primary Care Unavailable [facility] Attending Unavai lable Luís, Shiela Primary Care Unavailable [facility] Attending Unavai lable Luís, Shiela Primary Care Unavailable [place] OLSKaron Attending Unavail able Luís, Shiela Primary Care Unavailable [facility] Attending Unavai lable Luís, Shiela Primary Care Unavailable [facility] Attending Unavai lable Luís, Shiela Primary Care Unavailable Katsaros OLS, Carlos Attending Unavailable Luís, Shiela Primary Care Unavailable Katsaros OLS, Peter Attending Unavailable Luís, Shiela Primary Care Unavailable [facility] [place] Attending Unavai lable Luís, Shiela Primary Care Unavailable [facility] [place] Attending Unavai lable Luís, Shiela Primary Care Unavailable Crisostomo OLSKvng Referring Unavailable Crisostomo OLSElizabethet Attending Unavailable Luís, Shiela Primary Care Unavailable Luís, Shiela Primary Care Unavailable [facility] [place] Attending Unavai labish CrisostomoKvng Levy Attending Unavailable Luís, Shiela Primary Care Unavailable Luís, Shiela Primary Care Unavailable [facility] [place] Attending Unavai lable Luís, Shiela Primary Care Unavailable Katsaros SCARLET Peter Attending Unavailable Crisostomo OLSVicentebalgerson Attending Unavailable Luís, Shiela Primary Care Unavailable Katsaros SCARLET, Carlos Attending Unavailable Luís, Shiela Primary Care Unavailable [place] OLS, Karon Referring Unavail able Luís, Shiela Primary Care Unavailable [place] OLS, Karon Attending Unavail able [place] OLS, Karon Attending Unavail [...] Luís, Shiela Primary Care Unavailable [facility] Attending Unavai lable Luís, Shiela Primary Care Unavailable Katsaros OLS, Peter Attending Unavailable Luís, Shiela Primary Care Unavailable [facility] [place] Attending Unavai lable Luís, Shiela Primary Care [...] (1 source) Latex Drug Allergy 0 Rash [facility] (8 sources) Cortisone Drug Allergy 2 [facility] (7 sources) Latex Allergy to substance 0 Rash [facility] Medications Current Medications Medication Drug Class(es) Dates Sig (Normalized) Sig (Original) Acetaminophen (10 sources) Start: 10-21-2021 acetaminophen (TYLENOL) tablet 650 mg Start: 09-14-2021 acetaminophen (TYLENOL) 325 MG tablet 650 mg every 6 hours as needed 0 09/14/2021 Active take 2 tablets by mo [facility] every eight hours acetaminophen (TYLENOL) 325 [...] 1 12/03/2018 [facility] at [facility]time baclofen 10 mg [...] Start: 11-01-2021 take 1 capsule by mo [facility] once daily tamsulosin (FLOMAX) 0.4 MG capsule Take 1 capsule by mouth daily 30 capsule 0 11/01/2021 Active warfarin sodium 2.5 mg oral tablet (19 sources) Vitamin K Antagonist Start: 08-03-2023 warfarin (Coumadin) 2.5 MG tablet Start: 10-29-2021 [facility] warfarin (COUMADIN) 6 MG tablet [...] above: Take 1 capsule by mo [facility] three times daily. Complete Multi-Vitamin CHEW [...] on above: Take 1 tablet by joan twice daily. furosemide 40 mg oral tablet (2 sources) Loop Diuretic Start: 08-20-2021 End: 10-29-2021 take 1 tablet by mouth once daily furosemide (LASIX) 40 mg tablet Take 1 tablet by mouth once daily. 0 08/20/2021 Active Comment on above: Take 1 tablet by joan once daily. Ginkgo biloba extract (1 source) [...] Units subcutaneously with meals and at bedtime. English Panax Ginseng 100 MG CAPS (8 sources) English Panax Ginseng 100 MG CAPS Quantity: 0 Refills: 0 Ordered: 06-Nov-2019 DO Active English Panax Ginseng 100 MG Oral Capsule (4 sources) English Panax Ginseng 100 MG Oral Capsule Refills: 0 Active English Panax Gin mayuri 100 MG Oral Capsule Refills: 0 DO Active English Panax Ginseng 100 MG Oral Capsule (2 sources) English Panax Gin mayuri 100 MG Oral Capsule [...] once daily. Pentoxifylline (1 source) Blood Viscosity [employer] PENTOXIFYLLINE ORAL Take by mouth. 0 Active Comment on above: Take by mouth. petrolatum 0.41 mg/mg topical ointment (1 source) Start : 08-20 white petrolatum (AQUAPHOR) 41 % topical ointment Apply to affected area once daily. 0 08/20/2021 Active Comment on above: Apply to affected ar ea once daily. polyethylene glycol 3350 77638 mg powder for oral solution (1 source) [...] Onset: 10-21-2021 Chronic Other aftercare (4 sources) terminal carman (current) use of anticoagulants; Translations: [terminal carman (current) use of anticoagulants] Onset: 10-21-2021 Episodic Other aftercare (1 source) Drug therapy finding; Translations: [[facility] (current) use of anticoagulants] Episodic Other circulatory [...] 02-16-2022 Episodic Other aftercare (2 sources) Other nursing home (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; Translations: [Other watermelon inspector (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] Onset: 06-02-2024 Episodic Other [...] Coag (PPP) [Relative time] 2.7 {INR} Normal [facility] Comment on above: Order Comment: 411.1 Performed By: #### L 304.4014 ####[facility] [address] [place], [address] PT Coag (PPP) [Time] 29.1 s High 11.7-14.9 [facility] Comment on above: Order Comment: 411.1 Performed By: #### L 300.3900 ####[facility] [address] [place], [place], [id number] KEPPRA (LEVETIRACETAM)on KEPPRA 31.8 ug/mL Normal 10.0-40.0 [facility] Comment on above: Order Comment: 411-1 Result Comment: Perf ormed at: [employer] - [facility] [id number] Director: Alpesh Vázquez MD, Phone: [phone] Performed By: #### L 3310.0000, L379.3900 ####[facility] [address] [place], [place], [id number] KEPPRA (LEVETIRACETAM)on KEPPRA 33.3 ug/mL Normal 10.0-40.0 [facility] Comment on above: Order Comment: 411.1 Result Comment: Perf ormed at: [employer] Lab[address]NDNATURE[address] [id number] Director: Alpesh Vázquez MD, Phone: [phone] Performed By: #### L 3310.0000 ####[facility] [address] [place], [address] Prothrombin Time w/INRon INR Coag (PPP) [Relative time] 3.3 {INR} Normal [facility] Comment on above: Order Comment: 411-1 Performed By: #### L 3310.0000, L300.3900 ####[facility] [address] [place], [address] PT Coag (PPP) [Time] 34.0 s High 11.7-14.9 [facility] Comment on above: Order Comment: 411-1 Performed By: #### L 3310.0000, L300.3900 ####[facility] [address] [place], [address] Prothrombin Time w/INRon INR Coag (PPP) [Relative time] 2.8 {INR} Normal [facility] Comment on above: Order Comment: 411.1 Performed By: #### L 300.3900 ####[facility] [address] [place], [address] PT Coag (PPP) [Time] 30.0 s High 11.7-14.9 [facility] Comment on above: Order Comment: 411.1 Performed By: #### L 300.3900 ####[facility] [address] [place], [address] Basic Metabolic Profile (BMP )on 12-24-2024 BUN/CRE 19.2 RATIO Normal - [facility] Comment on above: Order Comment: 411-1 Performed By: #### L 500.2500, L100.0500 ####[facility] [address] [place], [address] Calcium [Mass/Vol] 8.8 mg/dL Normal 7.6-11.0 [facility] Comment on above: Order Comment: 411-1 Performed By: #### L 500.2500, L100.0500 ####[facility] [address] [place], [address] Chloride [Moles/Vol] 103 mmol/L Normal 98-108 [facility] Comment on above: Order Comment: 411-1 Performed By: #### L 500.2500, L100.0500 ####[facility] [address] [place], [address] CO2 [Moles/Vol] 23.7 mmol/L Normal 21.0-32.0 [facility] Comment on above: Order Comment: 411-1 Performed By: #### L 500.2500, L100.0500 ####[facility] [address] [place], [address] Creatinine [Mass/Vol] 0.82 mg/dL Normal 0.70-1.20 [facility] Comment on above: Order Comment: 411-1 Performed By: #### L 500.2500, L100.0500 ####[facility] [address] [place], [address] GAP 13 Normal 5-15 [facility] Comment on above: Order Comment: 411-1 Performed By: #### L 500.2500, L100.0500 ####[facility] [address] [place], [address] GFR/1.73 sq M.predicted among non-blacks MDRD (S/P/Bld) [Vol rate/Area] 93 mL/min/{1.73_m2} Normal >60 [facility] Comment on above: Order Comment: 411-1 Result Comment: mL/m in/1.73m2 CKD-EPI Creatinine Equation (2020) Performed By: #### L 500.2500, L100.0500 ####[facility] [address] [place], [address] Glucose [Mass/Vol] 88 mg/dL Normal 70-99 [facility] Comment on above: Order Comment: 411-1 Performed By: #### L 500.2500, L100.0500 ####[facility] [address] [place], [address] Potassium [Moles/Vol] 4.2 mmol/L Normal 3.3-5.1 [facility] Comment on above: Order Comment: 411-1 Performed By: #### L 500.2500, L100.0500 ####[facility] [address] [place], [address] Sodium [Moles/Vol] 139 mmol/L Normal 133-145 [facility] Comment on above: Order Comment: 411-1 Performed By: #### L 500.2500, L100.0500 ####[facility] [address] [place], [address] Urea nitrogen [Mass/Vol] 16 mg/dL Normal 4-19 [facility] Comment on above: Order Comment: 411-1 Performed By: #### L 500.2500, L100.0500 ####[facility] [address] [place], [address] CBC-Complete Blood Cnt No Di ffon 12-24-2024 Erythrocyte distribution width (RBC) [Ratio] 15.4 % High 11.6-14.6 [facility] Comment on above: Order Comment: 411-1 Performed By: #### L 500.2500, L100.0500 ####[facility] [address] [place], [address] Hematocrit (Bld) [Volume fraction] 39.8 % Low 40-54 [facility] Comment on above: Order Comment: 411-1 Performed By: #### L 500.2500, L100.0500 ####[facility] [address] [place], [address] Hemoglobin (Bld) [Mass/Vol] 12.4 g/dL Low 13.0-16.5 [facility] Comment on above: Order Comment: 411-1 Performed By: #### L 500.2500, L100.0500 ####[facility] [address] [place], [address] MCH (RBC) [Entitic mass] 26.6 pg Low 27.0-32.0 [facility] Comment on above: Order Comment: 411-1 Performed By: #### L 500.2500, L100.0500 ####[facility] [address] [place], [address] MCHC (RBC) [Mass/Vol] 31.2 g/dL Low 32-36 [facility] Comment on above: Order Comment: 411-1 Performed By: #### L 500.2500, L100.0500 ####[facility] [address] [place], [address] MCV (RBC) [Entitic vol] 85.4 fL Normal 80-94 [facility] Comment on above: Order Comment: 411-1 Performed By: #### L 500.2500, L100.0500 ####[facility] [address] [place], [address] Platelet mean volume (Bld) [Entitic vol] 10.4 fL Normal 6.2-12.0 [facility] Comment on above: Order Comment: 411-1 Performed By: #### L 500.2500, L100.0500 ####[facility] [address] [place], [address] Platelets (Bld) [#/Vol] 290 10*3/uL Normal 150-450 [facility] Comment on above: Order Comment: 411-1 Performed By: #### L 500.2500, L100.0500 ####[facility] [address] [place], [address] RBC (Bld) [#/Vol] 4.66 10*6/uL Normal 4.6-6.2 [facility] Comment on above: Order Comment: 411-1 Performed By: #### L 500.2500, L100.0500 ####[facility] [address] [place], [address] RDW SD 48.1 fl High 35.1-43.9 [facility] Comment on above: Order Comment: 411-1 Performed By: #### L 500.2500, L100.0500 ####[facility] [address] [place], [address] WBC (Bld) [#/Vol] 16.6 10*3/uL High 4.4-11.0 [facility] Comment on above: Order Comment: 411-1 Performed By: #### L 500.2500, L100.0500 ####[facility] [address] [place], [address] Prothrombin Time w/INRon INR Coag (PPP) [Relative time] 2.6 {INR} Normal [facility] Comment on above: Order Comment: 411.1 Performed By: #### L 300.3900 ####[facility] [address] [place], [address] PT Coag (PPP) [Time] 28.8 s High 11.7-14.9 [facility] Comment on above: Order Comment: 411.1 Performed By: #### L 300.3900 ####[facility] [address] [place], [address] Prothrombin Time w/INRon INR Coag (PPP) [Relative time] 2.4 {INR} Normal [facility] Comment on above: Order Comment: 411.1 Performed By: #### L 300.3900 ####[facility] [address] [place], [address] PT Coag (PPP) [Time] 26.7 s High 11.7-14.9 [facility] Comment on above: Order Comment: 411.1 Performed By: #### L 300.3900 ####[facility] [address] [place], [address] Prothrombin Time w/INRon INR Coag (PPP) [Relative time] 2.3 {INR} Normal [facility] Comment on above: Order Comment: 411.1 Performed By: #### L 300.3900 ####[facility] [address] [place], [address] PT Coag (PPP) [Time] 25.7 s High 11.7-14.9 [facility] Comment on above: Order Comment: 411.1 Performed By: #### L 300.3900 ####[facility] [address] [place], [address] Prothrombin Time w/INRon INR Coag (PPP) [Relative time] 2.2 {INR} Normal [facility] Comment on above: Order Comment: 411-1 Performed By: #### L 300.3900 ####[facility] [address] [place], [address] PT Coag (PPP) [Time] 24.7 s High 11.7-14.9 [facility] Comment on above: Order Comment: 411-1 Performed By: #### L 300.3900 ####[facility] [address] [place], [address] Prothrombin Time w/INRon INR Coag (PPP) [Relative time] 2.2 {INR} Normal [facility] Comment on above: Order Comment: 411.1 Performed By: #### L 300.3900 ####[facility] [address] [place], [address] PT Coag (PPP) [Time] 25.0 s High 11.7-14.9 [facility] Comment on above: Order Comment: 411.1 Performed By: #### L 300.3900 ####[facility] [address] [place], [address] Prothrombin Time w/INRon INR Coag (PPP) [Relative time] 2.3 {INR} Normal [facility] Comment on above: Order Comment: 411.1 Performed By: #### L 300.3900 ####[facility] [address] [place], [address] PT Coag (PPP) [Time] 25.9 s High 11.7-14.9 [facility] Comment on above: Order Comment: 411.1 Performed By: #### L 300.3900 ####[facility] [address] [place], [address] Prothrombin Time w/INRon INR Coag (PPP) [Relative time] 2.5 {INR} Normal [facility] Comment on above: Order Comment: 411.1 Performed By: #### L 300.3900 ####[facility] [address] [place], [address] PT Coag (PPP) [Time] 27.3 s High 11.7-14.9 [facility] Comment on above: Order Comment: 411.1 Performed By: #### L 300.3900 ####[facility] [address] [place], [address] Prothrombin Time w/INRon INR Coag (PPP) [Relative time] 2.3 {INR} Normal [facility] Comment on above: Order Comment: 411-1 Performed By: #### L 300.3900 ####[facility] [address] [place], [address] PT Coag (PPP) [Time] 26.0 s High 11.7-14.9 [facility] Comment on above: Order Comment: 411-1 Performed By: #### L 300.3900 ####[facility] [address] [place], [address] Prothrombin Time w/INRon INR Coag (PPP) [Relative time] 3.1 {INR} Normal [facility] Comment on above: Order Comment: 411-1 Performed By: #### L 300.3900 ####[facility] [address] [place], [address] PT Coag (PPP) [Time] 32.8 s High 11.7-14.9 [facility] Comment on above: Order Comment: 411-1 Performed By: #### L 300.3900 ####[facility] [address] [place], [address] Prothrombin Time w/INRon - INR Coag (PPP) [Relative time] 3.3 {INR} Normal [facility] Comment on above: Order Comment: 411.1 Performed By: #### L 300.3900 ####[facility] [address] [place], [address] PT Coag (PPP) [Time] 34.3 s High 11.7-14.9 [facility] Comment on above: Order Comment: 411.1 Performed By: #### L 300.3900 ####[facility] [address] [place], [address] Prothrombin Time w/INRon INR Coag (PPP) [Relative time] 2.8 {INR} Normal [facility] Comment on above: Order Comment: 411.2 Performed By: #### L 300.3900 ####[facility] [address] [place], [address] PT Coag (PPP) [Time] 30.0 s High 11.7-14.9 [facility] Comment on above: Order Comment: 411.2 Performed By: #### L 300.3900 ####[facility] [address] [place], [address] Prothrombin Time w/INRon INR Coag (PPP) [Relative time] 3.0 {INR} Normal [facility] Comment on above: Order Comment: 411.2 Performed By: #### L 300.3900 ####[facility] [address] [place], [address] PT Coag (PPP) [Time] 32.0 s High 11.7-14.9 [facility] Comment on above: Order Comment: 411.2 Performed By: #### L 300.3900 ####[facility] [address] [place], [address] Prothrombin Time w/INRon INR Coag (PPP) [Relative time] 2.9 {INR} Normal [facility] Comment on above: Order Comment: 411.2 Performed By: #### L 300.3900 ####[facility] [address] [place], [address] PT Coag (PPP) [Time] 30.7 s High 11.7-14.9 [facility] Comment on above: Order Comment: 411.2 Performed By: #### L 300.3900 ####[facility] [address] [place], [address] Prothrombin Time w/INRon INR Coag (PPP) [Relative time] 2.2 {INR} Normal [facility] Comment on above: Order Comment: 411.2 Performed By: #### L 300.3900 ####[facility] [facility] [address] [place], [address] PT Coag (PPP) [Time] 24.7 s High 11.7-14.9 [facility] Comment on above: Order Comment: 411.2 Performed By: #### L 300.3900 ####[facility] [address] [place], [address] Prothrombin Time w/INRon INR Coag (PPP) [Relative time] 2.6 {INR} Normal [facility] Comment on above: Order Comment: 411.2 Performed By: #### L 300.3900 ####[facility] [address] [place], [address] PT Coag (PPP) [Time] 28.7 s High 11.7-14.9 [facility] Comment on above: Order Comment: 411.2 Performed By: #### L 300.3900 ####[facility] [address] [place], [address] Prothrombin Time w/INRon INR Coag (PPP) [Relative time] 3.1 {INR} Normal [facility] Comment on above: Order Comment: 411.2 Performed By: #### L 300.3900 ####[facility] [address] [place], [address] PT Coag (PPP) [Time] 33.0 s High 11.7-14.9 [facility] Comment on above: Order Comment: 411.2 Performed By: #### L 300.3900 ####[facility] [address] [place], [address] Prothrombin Time w/INRon INR Coag (PPP) [Relative time] 3.0 {INR} Normal [facility] Comment on above: Order Comment: 411-2 Performed By: #### L 300.3900 ####[facility] [address] [place], [address] PT Coag (PPP) [Time] 31.4 s High 11.7-14.9 [facility] Comment on above: Order Comment: 411-2 Performed By: #### L 300.3900 ####[facility] [address] [place], [address] International normalized rat io (INR) calculationOrdered By: Karon Corrales on 10-30-2024 INR Coag (Bld) [Relative time] 2.4 {INR} [facility] Prothrombin Time w/INRon INR Coag (PPP) [Relative time] 2.4 {INR} Normal [facility] Comment on above: Performed By: #### L 300.3900 ####[facility] [address] [place], [address] PT Coag (PPP) [Time] 26.3 s High 11.7-14.9 [facility] Comment on above: Performed By: #### L 300.3900 ####[facility] [address] [place], [place], [phone] Prothrombin timeOrdered By: Karon Corrales on 10-30-2024 PT Coag (PPP) [Time] 26.3 s High 11.7-14.9 [facility] International normalized rat io (INR) calculationOrdered By: Karon Corrales on 10-27-2024 INR Coag (Bld) [Relative time] 2.2 {INR} [facility] Prothrombin Time w/INRon INR Coag (PPP) [Relative time] 2.2 {INR} Normal [facility] Comment on above: Order Comment: 411.2 Performed By: #### L 300.3900 ####[facility] [address] [place], [place], [phone] Prothrombin timeOrdered By: Karon Corrales on 10-27-2024 PT Coag (PPP) [Time] 24.5 s High 11.7-14.9 [facility] Comment on above: Order Comment: 411.2 Performed By: #### L 300.3900 ####[facility] [address] [place], [place], [phone] International normalized rat io (INR) calculationOrdered By: Karon Corrales on 10-23-2024 INR Coag (Bld) [Relative time] 2.5 {INR} [facility] Prothrombin Time w/INRon INR Coag (PPP) [Relative time] 2.5 {INR} Normal [facility] Comment on above: Order Comment: 411.2 Performed By: #### L 300.3900 ####[facility] [address] [place], [place], [phone] PT Coag (PPP) [Time] 27.9 s High 11.7-14.9 [facility] Comment on above: Order Comment: 411.2 Performed By: #### L 300.3900 ####[facility] [address] [place], [place], [phone] Prothrombin timeOrdered By: Karon Corrales on 10-23-2024 PT Coag (PPP) [Time] 27.9 s High 11.7-14.9 [facility] International normalized rat io (INR) calculationOrdered By: Karon Corrales on 10-20-2024 INR Coag (Bld) [Relative time] 3.1 {INR} [facility] Prothrombin Time w/INRon INR Coag (PPP) [Relative time] 3.1 {INR} Normal [facility] Comment on above: Order Comment: 411.2 Performed By: #### L 300.3900 ####[facility] [address] [place], [place], [phone] PT Coag (PPP) [Time] 32.8 s High 11.7-14.9 [facility] Comment on above: Order Comment: 411.2 Performed By: #### L 300.3900 ####[facility] [address] [place], [place], [phone] Prothrombin timeOrdered By: Karon Corrales on 10-20-2024 PT Coag (PPP) [Time] 32.8 s High 11.7-14.9 [facility] International normalized rat io (INR) calculationOrdered By: Karon Corrales on 10-16-2024 INR Coag (Bld) [Relative time] 2.8 {INR} [facility] Prothrombin Time w/INRon INR Coag (PPP) [Relative time] 2.8 {INR} Normal [facility] Comment on above: Order Comment: 411.2 Performed By: #### L 300.3900 ####[facility] [address] [place], [phone]) PT Coag (PPP) [Time] 30.4 s High 11.7-14.9 [facility] Comment on above: Order Comment: 411.2 Performed By: #### L 300.3900 ####[facility] [address] [place], [place], [phone] Prothrombin timeOrdered By: Karon Corrales on 10-16-2024 PT Coag (PPP) [Time] 30.4 s High 11.7-14.9 [facility] International normalized rat io (INR) calculationOrdered By: Carlos Cavazos on 10-13-2024 INR Coag (Bld) [Relative time] 1.9 {INR} [facility] Prothrombin Time w/INRon INR Coag (PPP) [Relative time] 1.9 {INR} Normal [facility] Comment on above: Order Comment: 411-2 Performed By: #### L 300.3900 ####[facility] [address] [place], [place], [phone]) PT Coag (PPP) [Time] 22.4 s High 11.7-14.9 [facility] Comment on above: Order Comment: 411-2 Performed By: #### L 300.3900 ####[facility] [address] [place], [place], [phone] Prothrombin timeOrdered By: Carlos Cavazos on 10-13-2024 PT Coag (PPP) [Time] 22.4 s High 11.7-14.9 [facility] International normalized rat io (INR) calculationOrdered By: Karon Corrales on 10-09-2024 INR Coag (Bld) [Relative time] 3.0 {INR} [facility] Prothrombin Time w/INRon INR Coag (PPP) [Relative time] 3.0 {INR} Normal [facility] Comment on above: Order Comment: 411.2 Performed By: #### L 300.3900 ####[facility] [address] [place], [place], [phone] Prothrombin timeOrdered By: Karon Corrales on 10-09-2024 PT Coag (PPP) [Time] 31.8 s High 11.7-14.9 [facility] Comment on above: Order Comment: 411.2 Performed By: #### L 300.3900 ####[facility] [address] [place], [place], [phone]) International normalized rat io (INR) calculationOrdered By: Carlos Cavazos on 10-06-2024 INR Coag (Bld) [Relative time] 2.7 {INR} [facility] Prothrombin Time w/INRon INR Coag (PPP) [Relative time] 2.7 {INR} Normal [facility] Comment on above: Order Comment: 411-2 Performed By: #### L 300.3900 ####[facility] [address] [place], [place], [phone] PT Coag (PPP) [Time] 29.6 s High 11.7-14.9 [facility] Comment on above: Order Comment: 411-2 Performed By: #### L 300.3900 ####[facility] [address] [place], [place], [phone] Prothrombin timeOrdered By: Carlos Cavazos on 10-06-2024 PT Coag (PPP) [Time] 29.6 s High 11.7-14.9 [facility] International normalized rat io (INR) calculationOrdered By: Karon Corrales on 10-02-2024 INR Coag (Bld) [Relative time] 2.3 {INR} [facility] Prothrombin Time w/INRon INR Coag (PPP) [Relative time] 2.3 {INR} Normal [facility] Comment on above: Order Comment: 411.2 Performed By: #### L 300.3900 ####[facility] [address] [place], [phone] PT Coag (PPP) [Time] 26.0 s High 11.7-14.9 [facility] Comment on above: Order Comment: 411.2 Performed By: #### L 300.3900 ####[facility] [address] [place], [place], [phone] Prothrombin timeOrdered By: Karon Corrales on 10-02-2024 PT Coag (PPP) [Time] 26.0 s High 11.7-14.9 [facility] International normalized rat io (INR) calculationOrdered By: Karon Corrales on 09-30-2024 INR Coag (Bld) [Relative time] 3.1 {INR} [facility] Prothrombin Time w/INRon INR Coag (PPP) [Relative time] 3.1 {INR} Normal [facility] Comment on above: Order Comment: 411.2 Performed By: #### L 300.3900 ####[facility] [address] [place], [place], [phone] PT Coag (PPP) [Time] 32.6 s High 11.7-14.9 [facility] Comment on above: Order Comment: 411.2 Performed By: #### L 300.3900 ####[facility] [address] [place], [place], [phone] Prothrombin timeOrdered By: Karon Corrales on 09-30-2024 PT Coag (PPP) [Time] 32.6 s High 11.7-14.9 [facility] International normalized rat io (INR) calculationOrdered By: Karon Corrales on 09-25-2024 INR Coag (Bld) [Relative time] 2.4 {INR} [facility] Prothrombin Time w/INRon INR Coag (PPP) [Relative time] 2.4 {INR} Normal [facility] Comment on above: Order Comment: 411.2 Performed By: #### L 300.3900 ####[facility] [address] [place], [place], [phone] Prothrombin timeOrdered By: Karon Corrales on 09-25-2024 PT Coag (PPP) [Time] 26.7 s High 11.7-14.9 [facility] Comment on above: Order Comment: 411.2 Performed By: #### L 300.3900 ####[facility] [address] [place], [place], [phone] International normalized rat io (INR) calculationOrdered By: Karon Corrales on 09-22-2024 INR Coag (Bld) [Relative time] 2.5 {INR} [facility] Prothrombin Time w/INRon INR Coag (PPP) [Relative time] 2.5 {INR} Normal [facility] Comment on above: Order Comment: 411.2 Performed By: #### L 300.3900 ####[facility] [address] [place], [address] Prothrombin timeOrdered By: Karon Corrales on 09-22-2024 PT Coag (PPP) [Time] 27.4 s High 11.7-14.9 [facility] Comment on above: Order Comment: 411.2 Performed By: #### L 300.3900 ####[facility] [address] [place], [place], [phone] International normalized rat io (INR) calculationOrdered By: Karon Corrales on 09-18-2024 INR Coag (Bld) [Relative time] 2.2 {INR} [facility] Prothrombin Time w/INRon INR Coag (PPP) [Relative time] 2.2 {INR} Normal [facility] Comment on above: Order Comment: 411.2 Performed By: #### L 300.3900 ####[facility] [address] [place], [place], [phone] PT Coag (PPP) [Time] 25.1 s High 11.7-14.9 [facility] Comment on above: Order Comment: 411.2 Performed By: #### L 300.3900 ####[facility] [address] [place], [place], [phone] Prothrombin timeOrdered By: Karon Corrales on 09-18-2024 PT Coag (PPP) [Time] 25.1 s High 11.7-14.9 [facility] International normalized rat io (INR) calculationOrdered By: Carlos Cavazos on 09-15-2024 INR Coag (Bld) [Relative time] 2.4 {INR} [facility] Prothrombin Time w/INRon INR Coag (PPP) [Relative time] 2.4 {INR} Normal [facility] Comment on above: Order Comment: 411-2 Performed By: #### L 300.3900 ####[facility] [address] [place], [place], [phone] Prothrombin timeOrdered By: Carlos Cavazos on 09-15-2024 PT Coag (PPP) [Time] 26.3 s High 11.7-14.9 [facility] Comment on above: Order Comment: 411-2 Performed By: #### L 300.3900 ####[facility] [address] [place], [place], [phone] International normalized rat io (INR) calculationOrdered By: Karon Corrales on 09-11-2024 INR Coag (Bld) [Relative time] 2.0 {INR} [facility] Prothrombin Time w/INRon INR Coag (PPP) [Relative time] 2.0 {INR} Normal [facility] Comment on above: Order Comment: 411.2 Performed By: #### L 300.3900 ####[facility] [address] [place], [place], [phone] PT Coag (PPP) [Time] 22.9 s High 11.7-14.9 [facility] Comment on above: Order Comment: 411.2 Performed By: #### L 300.3900 ####[facility] [address] [place], [place], [phone] Prothrombin timeOrdered By: Karon Corrales on 09-11-2024 PT Coag (PPP) [Time] 22.9 s High 11.7-14.9 [facility] International normalized rat io (INR) calculationOrdered By: Karon Corrales on 09-08-2024 INR Coag (Bld) [Relative time] 2.0 {INR} [facility] Prothrombin Time w/INRon INR Coag (PPP) [Relative time] 2.0 {INR} Normal [facility] Comment on above: Order Comment: 411.2 Performed By: #### L 300.3900 ####[facility] [address] [place], [place], [phone] PT Coag (PPP) [Time] 22.8 s High 11.7-14.9 [facility] Comment on above: Order Comment: 411.2 Performed By: #### L 300.3900 ####[facility] [address] [place], [place], [phone] Prothrombin timeOrdered By: Karon Corrales on 09-08-2024 PT Coag (PPP) [Time] 22.8 s High 11.7-14.9 [facility] International normalized rat io (INR) calculationOrdered By: Carlos Cavazos on 09-04-2024 INR Coag (Bld) [Relative time] 1.7 {INR} [facility] Prothrombin Time w/INRon INR Coag (PPP) [Relative time] 1.7 {INR} Normal [facility] Comment on above: Order Comment: 411-2 Performed By: #### L 300.3900 ####[facility] [address] [place], [address] PT Coag (PPP) [Time] 20.8 s High 11.7-14.9 [facility] Comment on above: Order Comment: 411-2 Performed By: #### L 300.3900 ####[facility] [address] [place], [place], [phone] Prothrombin timeOrdered By: Carlos Cavazos on 09-04-2024 PT Coag (PPP) [Time] 20.8 s High 11.7-14.9 [facility] International normalized rat io (INR) calculationOrdered By: Carlos Cavazos on 09-01-2024 INR Coag (Bld) [Relative time] 2.9 {INR} [facility] Prothrombin Time w/INRon INR Coag (PPP) [Relative time] 2.9 {INR} Normal [facility] Comment on above: Order Comment: 411-2 Performed By: #### L 300.3900 ####[facility] [address] [place], [address] PT Coag (PPP) [Time] 30.7 s High 11.7-14.9 [facility] Comment on above: Order Comment: 411-2 Performed By: #### L 300.3900 ####[facility] [address] [place], [address] Prothrombin timeOrdered By: Carlos Cavazos on 09-01-2024 PT Coag (PPP) [Time] 30.7 s High 11.7-14.9 [facility] International normalized rat io (INR) calculationOrdered By: Carlos Cavazos on 08-28-2024 INR Coag (Bld) [Relative time] 2.4 {INR} [facility] Prothrombin Time w/INRon INR Coag (PPP) [Relative time] 2.4 {INR} Normal [facility] Comment on above: Order Comment: 411-2 Performed By: #### L 300.3900 ####[facility] [address] [place], [address] Prothrombin timeOrdered By: Carlos Cavazos on 08-28-2024 PT Coag (PPP) [Time] 26.7 s High 11.7-14.9 [facility] Comment on above: Order Comment: 411-2 Performed By: #### L 300.3900 ####[facility] [address] [place], [address] International normalized rat io (INR) calculationOrdered By: Karon Corrales on 08-25-2024 INR Coag (Bld) [Relative time] 1.8 {INR} [facility] Prothrombin Time w/INRon INR Coag (PPP) [Relative time] 1.8 {INR} Normal [facility] Comment on above: Order Comment: 411.2 Performed By: #### L 300.3900 ####[facility] [address] [place], [address] PT Coag (PPP) [Time] 21.6 s High 11.7-14.9 [facility] Comment on above: Order Comment: 411.2 Performed By: #### L 300.3900 ####[facility] [address] [place], [place], [phone] Prothrombin timeOrdered By: Karon Corrales on 08-25-2024 PT Coag (PPP) [Time] 21.6 s High 11.7-14.9 [facility] International normalized rat io (INR) calculationOrdered By: Karon Corrales on 08-21-2024 INR Coag (Bld) [Relative time] 1.7 {INR} [facility] PSA, total screeningOrdered By: Karon Corrales on 08-21-2024 Prostate Specific Antigen Screen 0.52 ng/mL 0.02-4.00 [facility] Comment on above: This test was [...] 08-21-2024 PSA,TOT SCREEN 0.52 ng/mL Normal 0.02-4.00 [facility] Comment on above: Order Comment: 411.2 Result Comment: This test was performed using the [employer] tPSAmethod. Measured values of a patient??sample can varydepending on the testing procedure used. PSA valuesdetermined on patient samples by different testingprocedures cannot be used interchangeably. If there is achange in PSA assays while monitoring therapy, sequentialtesting should be performed to confirm baseline values. Performed By: #### L 501.9910, L300.3900 ####[facility] [address] [place], [address] Prothrombin Time w/INRon INR Coag (PPP) [Relative time] 1.7 {INR} Normal [facility] Comment on above: Order Comment: 411.2 Performed By: #### L 501.9910, L300.3900 ####[facility] [address] [place], [address] Prothrombin timeOrdered By: Karon Corrales on 08-21-2024 PT Coag (PPP) [Time] 20.1 s High 11.7-14.9 [facility] Comment on above: Order Comment: 411.2 Performed By: #### L 501.9910, L300.3900 ####[facility] [address] [place], [address] International normalized rat io (INR) calculationOrdered By: Karon Corrales on 08-18-2024 INR Coag (Bld) [Relative time] 3.0 {INR} [facility] Prothrombin Time w/INRon INR Coag (PPP) [Relative time] 3.0 {INR} Normal [facility] Comment on above: Order Comment: 411.2 Performed By: #### L 300.3900 ####[facility] [address] [place], [place], [phone] PT Coag (PPP) [Time] 31.4 s High 11.7-14.9 [facility] Comment on above: Order Comment: 411.2 Performed By: #### L 300.3900 ####[facility] [address] [place], [place], [phone] Prothrombin timeOrdered By: Karon Corrales on 08-18-2024 PT Coag (PPP) [Time] 31.4 s High 11.7-14.9 [facility] International normalized rat io (INR) calculationOrdered By: Karon Corrales on 08-14-2024 INR Coag (Bld) [Relative time] 2.4 {INR} [facility] Prothrombin Time w/INRon INR Coag (PPP) [Relative time] 2.4 {INR} Normal [facility] Comment on above: Order Comment: 411.2 Performed By: #### L 300.3900 ####[facility] [address] [place], [place], [phone] PT Coag (PPP) [Time] 26.6 s High 11.7-14.9 [facility] Comment on above: Order Comment: 411.2 Performed By: #### L 3003907 ####[facility] [address] [place], [place], [phone] Prothrombin timeOrdered By: Karon Corrales on 08-14-2024 PT Coag (PPP) [Time] 26.6 s High 11.7-14.9 [facility] International normalized rat io (INR) calculationOrdered By: Karon Corrales on 08-11-2024 INR Coag (Bld) [Relative time] 3.1 {INR} [facility] Prothrombin Time w/INRon INR Coag (PPP) [Relative time] 3.1 {INR} Normal [facility] Comment on above: Order Comment: 411.2 Performed By: #### L 300.3904 ####[facility] [address] [place], [address] PT Coag (PPP) [Time] 32.4 s High 11.7-14.9 [facility] Comment on above: Order Comment: 411.2 Performed By: #### L 300.3900 ####[facility] [address] [place], [address] Prothrombin timeOrdered By: Karon Corrales on 08-11-2024 PT Coag (PPP) [Time] 32.4 s High 11.7-14.9 [facility] International normalized rat io (INR) calculationOrdered By: Carlos Cavazos on 08-07-2024 INR Coag (Bld) [Relative time] 2.8 {INR} [facility] Prothrombin Time w/INRon INR Coag (PPP) [Relative time] 2.8 {INR} Normal [facility] Comment on above: Order Comment: 411-2 Performed By: #### L 300.3900 ####[facility] [address] [place], [address] PT Coag (PPP) [Time] 30.3 s High 11.7-14.9 [facility] Comment on above: Order Comment: 411-2 Performed By: #### L 300.3900 ####[facility] [address] [place], [address] Prothrombin timeOrdered By: Carlos Cavazos on 08-07-2024 PT Coag (PPP) [Time] 30.3 s High 11.7-14.9 [facility] International normalized rat io (INR) calculationOrdered By: Carlos Cavazos on 08-04-2024 INR Coag (Bld) [Relative time] 1.9 {INR} [facility] Prothrombin Time w/INRon INR Coag (PPP) [Relative time] 1.9 {INR} Normal [facility] Comment on above: Order Comment: 411-2 Performed By: #### L 300.3900 ####[facility] [address] [place], [address] PT Coag (PPP) [Time] 22.1 s High 11.7-14.9 [facility] Comment on above: Order Comment: 411-2 Performed By: #### L 300.3900 ####[facility] [address] [place], [address] Prothrombin timeOrdered By: Carlos Cavazos on 08-04-2024 PT Coag (PPP) [Time] 22.1 s High 11.7-14.9 [facility] International normalized rat io (INR) calculationOrdered By: Karon Corrales on 07-31-2024 INR Coag (Bld) [Relative time] 3.2 {INR} [facility] Prothrombin Time w/INRon INR Coag (PPP) [Relative time] 3.2 {INR} Normal [facility] Comment on above: Order Comment: 411.2 Performed By: #### L 300.3900 ####[facility] [address] [place], [address] PT Coag (PPP) [Time] 33.5 s High 11.7-14.9 [facility] Comment on above: Order Comment: 411.2 Performed By: #### L 300.3900 ####[facility] [address] [place], [address] Prothrombin timeOrdered By: Karon Corrales on 07-31-2024 PT Coag (PPP) [Time] 33.5 s High 11.7-14.9 [facility] International normalized rat io (INR) calculationOrdered By: Karon Corrales on 07-28-2024 INR Coag (Bld) [Relative time] 2.7 {INR} [facility] Prothrombin Time w/INRon INR Coag (PPP) [Relative time] 2.7 {INR} Normal [facility] Comment on above: Order Comment: 411.2 Performed By: #### L 300.3900 ####[facility] [address] [place], [address] PT Coag (PPP) [Time] 29.6 s High 11.7-14.9 [facility] Comment on above: Order Comment: 411.2 Performed By: #### L 300.3900 ####[facility] [address] [place], [address] Prothrombin timeOrdered By: Karon Corrales on 07-28-2024 PT Coag (PPP) [Time] 29.6 s High 11.7-14.9 [facility] International normalized rat io (INR) calculationOrdered By: Carlos Cavazos on 07-25-2024 INR Coag (Bld) [Relative time] 3.0 {INR} [facility] Prothrombin Time w/INRon INR Coag (PPP) [Relative time] 3.0 {INR} Normal [facility] Comment on above: Order Comment: 411-2 Performed By: #### L 300.3900 ####[facility] [address] [place], [address] Prothrombin timeOrdered By: Carlos Cavazos on 07-25-2024 PT Coag (PPP) [Time] 32.1 s High 11.7-14.9 [facility] Comment on above: Order Comment: 411-2 Performed By: #### L 300.3900 ####[facility] [address] [place], [address] International normalized rat io (INR) calculationOrdered By: Karon Corrales on 07-24-2024 INR Coag (Bld) [Relative time] 3.4 {INR} [facility] Prothrombin Time w/INRon INR Coag (PPP) [Relative time] 3.4 {INR} Normal [facility] Comment on above: Order Comment: 411.2 Performed By: #### L 300.3900 ####[facility] [address] [place], [place], [phone] Prothrombin timeOrdered By: Karon Corrales on 07-24-2024 PT Coag (PPP) [Time] 35.4 s High 11.7-14.9 [facility] Comment on above: Order Comment: 411.2 Performed By: #### L 300.3900 ####[facility] [address] [place], [place], [phone] International normalized rat io (INR) calculationOrdered By: Karon Corrales on 07-21-2024 INR Coag (Bld) [Relative time] 1.6 {INR} [facility] Prothrombin Time w/INRon INR Coag (PPP) [Relative time] 1.6 {INR} Normal [facility] Comment on above: Order Comment: 411.2 Performed By: #### L 300.3900 ####[facility] [address] [place], [place], [address] PT Coag (PPP) [Time] 19.6 s High 11.7-14.9 [facility] Comment on above: Order Comment: 411.2 Performed By: #### L 300.3900 ####[facility] [address] [place], [place], [phone] Prothrombin timeOrdered By: Karon Corrales on 07-21-2024 PT Coag (PPP) [Time] 19.6 s High 11.7-14.9 [facility] International normalized rat io (INR) calculationOrdered By: Karon Corrales on 07-17-2024 INR Coag (Bld) [Relative time] 2.9 {INR} [facility] Prothrombin Time w/INRon INR Coag (PPP) [Relative time] 2.9 {INR} Normal [facility] Comment on above: Order Comment: 411.2 Performed By: #### L 300.3900 ####[facility] [address] [place], [address] PT Coag (PPP) [Time] 31.1 s High 11.7-14.9 [facility] Comment on above: Order Comment: 411.2 Performed By: #### L 300.3900 ####[facility] [address] [place], [address] Prothrombin timeOrdered By: Karon Corrales on 07-17-2024 PT Coag (PPP) [Time] 31.1 s High 11.7-14.9 [facility] International normalized rat io (INR) calculationOrdered By: Carlos Cavazos on 07-14-2024 INR Coag (Bld) [Relative time] 2.5 {INR} [facility] Prothrombin Time w/INRon INR Coag (PPP) [Relative time] 2.5 {INR} Normal [facility] Comment on above: Order Comment: 411-2 Performed By: #### L 300.3900 ####[facility] [address] [place], [address] PT Coag (PPP) [Time] 27.5 s High 11.7-14.9 [facility] Comment on above: Order Comment: 411-2 Performed By: #### L 300.3900 ####[facility] [address] [place], [address] Prothrombin timeOrdered By: Carlos Cavazos on 07-14-2024 PT Coag (PPP) [Time] 27.5 s High 11.7-14.9 [facility] International normalized rat io (INR) calculationOrdered By: Carlos Cavazos on 07-11-2024 INR Coag (Bld) [Relative time] 2.5 {INR} [facility] Prothrombin Time w/INRon INR Coag (PPP) [Relative time] 2.5 {INR} Normal [facility] Comment on above: Performed By: #### L 300.3900 ####[facility] [address] [place], [address] PT Coag (PPP) [Time] 27.7 s High 11.7-14.9 [facility] Comment on above: Performed By: #### L 300.3900 ####[facility] [address] [place], [address] Prothrombin timeOrdered By: Carlos Cavazos on 07-11-2024 PT Coag (PPP) [Time] 27.7 s High 11.7-14.9 [facility] Prothrombin Time w/INRon INR Normal [facility] Comment on above: Order Comment: 411.2 Result Comment: QNS TUBE NOT FILLED Performed By: #### L 300.3900 ####[facility] [address] [place], [address] PROTIME Normal 11.7-14.9 [facility] Comment on above: Order Comment: 411.2 Result Comment: QNS TUBE NOT FILLED Performed By: #### L 300.3900 ####[facility] [address] [place], [address] International normalized rat io (INR) calculationOrdered By: Kvng Crisostomo on 07-07-2024 INR Coag (Bld) [Relative time] 2.5 {INR} [facility] Prothrombin Time w/INRon INR Coag (PPP) [Relative time] 2.5 {INR} Normal [facility] Comment on above: Order Comment: 411.2 Performed By: #### L 300.3900 ####[facility] [address] [place], [address] PT Coag (PPP) [Time] 27.2 s High 11.7-14.9 [facility] Comment on above: Order Comment: 411.2 Performed By: #### L 300.3900 ####[facility] [address] [place], [place], [phone] Prothrombin timeOrdered By: Kvng Crisostomo on 07-07-2024 PT Coag (PPP) [Time] 27.2 s High 11.7-14.9 [facility] International normalized rat io (INR) calculationOrdered By: Kvng Crisostomo on 07-03-2024 INR Coag (Bld) [Relative time] 2.5 {INR} [facility] Prothrombin Time w/INRon INR Coag (PPP) [Relative time] 2.5 {INR} Normal [facility] Comment on above: Order Comment: 411.2 Performed By: #### L 300.3900 ####[facility] [address] [place], [place], [phone]) PT Coag (PPP) [Time] 27.2 s High 11.7-14.9 [facility] Comment on above: Order Comment: 411.2 Performed By: #### L 300.3900 ####[facility] [address] [place], [place], [phone] Prothrombin timeOrdered By: Kvng Crisostomo on 07-03-2024 PT Coag (PPP) [Time] 27.2 s High 11.7-14.9 [facility] International normalized rat io (INR) calculationOrdered By: Kvng Crisostomo on 06-30-2024 INR Coag (Bld) [Relative time] 2.4 {INR} [facility] Prothrombin Time w/INRon INR Coag (PPP) [Relative time] 2.4 {INR} Normal [facility] Comment on above: Order Comment: 411.2 Performed By: #### L 300.3900 ####[facility] [address] [place], [place], [phone]) PT Coag (PPP) [Time] 26.8 s High 11.7-14.9 [facility] Comment on above: Order Comment: 411.2 Performed By: #### L 300.3900 ####[facility] [address] [place], [place], [phone] Prothrombin timeOrdered By: Kvng Crisostomo on 06-30-2024 PT Coag (PPP) [Time] 26.8 s High 11.7-14.9 [facility] International normalized rat io (INR) calculationOrdered By: Kvng Crisostomo on 06-26-2024 INR Coag (Bld) [Relative time] 2.5 {INR} [facility] Prothrombin Time w/INRon INR Coag (PPP) [Relative time] 2.5 {INR} Normal [facility] Comment on above: Order Comment: 411.2 Performed By: #### L 300.3900 ####[facility] [address] [place], [address] PT Coag (PPP) [Time] 27.5 s High 11.7-14.9 [facility] Comment on above: Order Comment: 411.2 Performed By: #### L 300.3900 ####[facility] [address] [place], [address] Prothrombin timeOrdered By: Kvng Crisostomo on 06-26-2024 PT Coag (PPP) [Time] 27.5 s High 11.7-14.9 [facility] International normalized rat io (INR) calculationOrdered By: Carlos Cavazos on 06-23-2024 INR Coag (Bld) [Relative time] 2.8 {INR} [facility] Prothrombin Time w/INRon INR Coag (PPP) [Relative time] 2.8 {INR} Normal [facility] Comment on above: Order Comment: 411-2 Performed By: #### L 300.3900 ####[facility] [address] [place], [address] PT Coag (PPP) [Time] 29.7 s High 11.7-14.9 [facility] Comment on above: Order Comment: 411-2 Performed By: #### L 300.3900 ####[facility] [address] [place], [place], [phone] Prothrombin timeOrdered By: Carlos Cavazos on 06-23-2024 PT Coag (PPP) [Time] 29.7 s High 11.7-14.9 [facility] International normalized rat io (INR) calculationOrdered By: Kvng Crisostomo on 06-19-2024 INR Coag (Bld) [Relative time] 2.6 {INR} [facility] Prothrombin Time w/INRon INR Coag (PPP) [Relative time] 2.6 {INR} Normal [facility] Comment on above: Order Comment: 411.2 Performed By: #### L 300.3900 ####[facility] [address] [place], [address] PT Coag (PPP) [Time] 28.6 s High 11.7-14.9 [facility] Comment on above: Order Comment: 411.2 Performed By: #### L 300.3900 ####[facility] [address] [place], [address] Prothrombin timeOrdered By: Kvng Crisostomo on 06-19-2024 PT Coag (PPP) [Time] 28.6 s High 11.7-14.9 [facility] International normalized rat io (INR) calculationOrdered By: Kvng Crisostomo on 06-16-2024 INR Coag (Bld) [Relative time] 2.5 {INR} [facility] Prothrombin Time w/INRon INR Coag (PPP) [Relative time] 2.5 {INR} Normal [facility] Comment on above: Order Comment: 411.2 Performed By: #### L 300.3900 ####[facility] [address] [place], [address] PT Coag (PPP) [Time] 27.3 s High 11.7-14.9 [facility] Comment on above: Order Comment: 411.2 Performed By: #### L 300.3900 ####[facility] [address] [place], [place], [phone] Prothrombin timeOrdered By: Kvng Crisostomo on 06-16-2024 PT Coag (PPP) [Time] 27.3 s High 11.7-14.9 [facility] International normalized rat io (INR) calculationOrdered By: Kvng Crisostomo on 06-12-2024 INR Coag (Bld) [Relative time] 2.1 {INR} [facility] Prothrombin Time w/INRon INR Coag (PPP) [Relative time] 2.1 {INR} Normal [facility] Comment on above: Order Comment: 411.2 Performed By: #### L 300.3900 ####[facility] [address] [place], [place], [phone] PT Coag (PPP) [Time] 24.0 s High 11.7-14.9 [facility] Comment on above: Order Comment: 411.2 Performed By: #### L 300.3900 ####[facility] [address] [place], [place], [phone] Prothrombin timeOrdered By: Kvng Crisostomo on 06-12-2024 PT Coag (PPP) [Time] 24.0 s High 11.7-14.9 [facility] International normalized rat io (INR) calculationOrdered By: Carlos Cavazos on 06-09-2024 INR Coag (Bld) [Relative time] 1.5 {INR} [facility] Prothrombin Time w/INRon INR Coag (PPP) [Relative time] 1.5 {INR} Normal [facility] Comment on above: Order Comment: 411-2 Performed By: #### L 300.3900 ####[facility] [address] [place], [address] PT Coag (PPP) [Time] 18.0 s High 11.7-14.9 [facility] Comment on above: Order Comment: 411-2 Performed By: #### L 300.3900 ####[facility] [address] [place], [address] Prothrombin timeOrdered By: Carlos Cavazos on 06-09-2024 PT Coag (PPP) [Time] 18.0 s High 11.7-14.9 [facility] International normalized rat io (INR) calculationOrdered By: Kvng Crisostomo on 06-05-2024 INR Coag (Bld) [Relative time] 2.8 {INR} [facility] Prothrombin Time w/INRon INR Coag (PPP) [Relative time] 2.8 {INR} Normal [facility] Comment on above: Order Comment: 411.2 Performed By: #### L 300.3900 ####[facility] [address] [place], [address] PT Coag (PPP) [Time] 30.3 s High 11.7-14.9 [facility] Comment on above: Order Comment: 411.2 Performed By: #### L 300.3900 ####[facility] [address] [place], [address] Prothrombin timeOrdered By: Kvng Crisostomo on 06-05-2024 PT Coag (PPP) [Time] 30.3 s High 11.7-14.9 [facility] International normalized rat io (INR) calculationOrdered By: Kvng Crisostomo on 06-02-2024 INR Coag (Bld) [Relative time] 2.6 {INR} [facility] Prothrombin Time w/INRon INR Coag (PPP) [Relative time] 2.6 {INR} Normal [facility] Comment on above: Order Comment: 411.2 Performed By: #### L 300.3900 ####[facility] [address] [place], [address] PT Coag (PPP) [Time] 28.6 s High 11.7-14.9 [facility] Comment on above: Order Comment: 411.2 Performed By: #### L 300.3900 ####[facility] [address] [place], [place], [phone] Prothrombin timeOrdered By: Kvng Crisostomo on 06-02-2024 PT Coag (PPP) [Time] 28.6 s High 11.7-14.9 [facility] International normalized rat io (INR) calculationOrdered By: Kvng Crisostomo on 05-29-2024 INR Coag (Bld) [Relative time] 2.5 {INR} [facility] Prothrombin Time w/INRon INR Coag (PPP) [Relative time] 2.5 {INR} Normal [facility] Comment on above: Order Comment: 411.2 Performed By: #### L 300.3900 ####[facility] [address] [place], [place], [phone] PT Coag (PPP) [Time] 27.7 s High 11.7-14.9 [facility] Comment on above: Order Comment: 411.2 Performed By: #### L 300.3900 ####[facility] [address] [place], [place], [phone] Prothrombin timeOrdered By: Kvng Crisostomo on 05-29-2024 PT Coag (PPP) [Time] 27.7 s High 11.7-14.9 [facility] International normalized rat io (INR) calculationOrdered By: Carlos Cavazos on 05-26-2024 INR Coag (Bld) [Relative time] 2.2 {INR} [facility] Prothrombin Time w/INRon INR Coag (PPP) [Relative time] 2.2 {INR} Normal [facility] Comment on above: Order Comment: 411-2 Performed By: #### L 300.3900 ####[facility] [address] [place], [address] PT Coag (PPP) [Time] 24.5 s High 11.7-14.9 [facility] Comment on above: Order Comment: 411-2 Performed By: #### L 300.3900 ####[facility] [address] [place], [address] Prothrombin timeOrdered By: Carlos Cavazos on 05-26-2024 PT Coag (PPP) [Time] 24.5 s High 11.7-14.9 [facility] International normalized rat io (INR) calculationOrdered By: Kvng Crisostomo on 05-22-2024 INR Coag (Bld) [Relative time] 2.8 {INR} [facility] Prothrombin Time w/INRon INR Coag (PPP) [Relative time] 2.8 {INR} Normal [facility] Comment on above: Order Comment: 411.2 Performed By: #### L 300.3900 ####[facility] [address] [place], [address] PT Coag (PPP) [Time] 30.3 s High 11.7-14.9 [facility] Comment on above: Order Comment: 411.2 Performed By: #### L 300.3900 ####[facility] [address] [place], [address] Prothrombin timeOrdered By: Kvng Crisostomo on 05-22-2024 PT Coag (PPP) [Time] 30.3 s High 11.7-14.9 [facility] International normalized rat io (INR) calculationOrdered By: Kvng Crisostomo on 05-20-2024 INR Coag (Bld) [Relative time] 4.0 {INR} High [facility] Comment on above: CRITICAL VALUE CASEY D TO [id number]/14/25 0828 Diana Mattson.RESULTS READ BACK BY SAME. Prothrombin Time w/INRon INR Coag (PPP) [Relative time] 4.0 {INR} Invalid Interpretation Code [facility] Comment on above: Order Comment: 411.2 Result Comment: CRIT ICAL VALUE CALLED TO [id number]/14/25 0828 Diana Bernalzano.RESULTS READ BACK BY SAME. Performed By: #### L 300.3900 ####[facility] [address] [place], [address] PT Coag (PPP) [Time] 39.9 s High 11.7-14.9 [facility] Comment on above: Order Comment: 411.2 Performed By: #### L 300.3900 ####[facility] [address] [place], [address] Prothrombin timeOrdered By: Kvng Crisostomo on 05-20-2024 PT Coag (PPP) [Time] 39.9 s High 11.7-14.9 [facility] International normalized rat io (INR) calculationOrdered By: Kvng Crisostomo on 05-19-2024 INR Coag (Bld) [Relative time] 3.4 {INR} [facility] Prothrombin Time w/INRon INR Coag (PPP) [Relative time] 3.4 {INR} Normal [facility] Comment on above: Order Comment: 411.2 Performed By: #### L 300.3900 ####[facility] [address] [place], [address] PT Coag (PPP) [Time] 35.4 s High 11.7-14.9 [facility] Comment on above: Order Comment: 411.2 Performed By: #### L 300.3900 ####[facility] [address] [place], [address] Prothrombin timeOrdered By: Kvng Crisostomo on 05-19-2024 PT Coag (PPP) [Time] 35.4 s High 11.7-14.9 [facility] International normalized rat io (INR) calculationOrdered By: Kvng Crisostomo on 05-15-2024 INR Coag (Bld) [Relative time] 2.6 {INR} [facility] Prothrombin Time w/INRon INR Coag (PPP) [Relative time] 2.6 {INR} Normal [facility] Comment on above: Order Comment: 411.2 Performed By: #### L 300.3900 ####[facility] [address] [place], [address] PT Coag (PPP) [Time] 28.7 s High 11.7-14.9 [facility] Comment on above: Order Comment: 411.2 Performed By: #### L 300.3900 ####[facility] [address] [place], [address] Prothrombin timeOrdered By: Kvng Crisostomo on 05-15-2024 PT Coag (PPP) [Time] 28.7 s High 11.7-14.9 [facility] International normalized rat io (INR) calculationOrdered By: Carlos Cavazos on 05-12-2024 INR Coag (Bld) [Relative time] 2.1 {INR} [facility] Prothrombin Time w/INRon INR Coag (PPP) [Relative time] 2.1 {INR} Normal [facility] Comment on above: Order Comment: 411-2 Performed By: #### L 300.3900 ####[facility] [address] [place], [address] PT Coag (PPP) [Time] 24.1 s High 11.7-14.9 [facility] Comment on above: Order Comment: 411-2 Performed By: #### L 300.3900 ####[facility] [address] [place], [address] Prothrombin timeOrdered By: Carlos Cavazos on 05-12-2024 PT Coag (PPP) [Time] 24.1 s High 11.7-14.9 [facility] International normalized rat io (INR) calculationOrdered By: Kvng Crisostomo on 05-09-2024 INR Coag (Bld) [Relative time] 3.4 {INR} [facility] Prothrombin Time w/INRon INR Coag (PPP) [Relative time] 3.4 {INR} Normal [facility] Comment on above: Order Comment: 411.2 Performed By: #### L 300.3900 ####[facility] [address] [place], [address] PT Coag (PPP) [Time] 35.4 s High 11.7-14.9 [facility] Comment on above: Order Comment: 411.2 Performed By: #### L 300.3900 ####[facility] [address] [place], [address] Prothrombin timeOrdered By: Kvng Crisostomo on 05-09-2024 PT Coag (PPP) [Time] 35.4 s High 11.7-14.9 [facility] International normalized rat io (INR) calculationOrdered By: Kvng Crisostomo on 05-08-2024 INR Coag (Bld) [Relative time] 4.1 {INR} High [facility] Comment on above: CRITICAL VALUE CASEY D TO [facility]05/08/24 09 Karen Jamison.RESULTS READ BACK BY SAME. Prothrombin Time w/INRon INR Coag (PPP) [Relative time] 4.1 {INR} Invalid Interpretation Code [facility] Comment on above: Order Comment: 411.2 Result Comment: CRIT ICAL VALUE CALLED TO [facility]05/08/24 09 Karen Jamison.RESULTS READ BACK BY SAME. Performed By: #### L 300.3900 ####[facility] [address] [place], [address] PT Coag (PPP) [Time] 40.8 s High 11.7-14.9 [facility] Comment on above: Order Comment: 411.2 Performed By: #### L 300.3900 ####[facility] [address] [place], [address] Prothrombin timeOrdered By: Kvng Crisostomo on 05-08-2024 PT Coag (PPP) [Time] 40.8 s High 11.7-14.9 [facility] International normalized rat io (INR) calculationOrdered By: Kvng Crisostomo on 05-05-2024 INR Coag (Bld) [Relative time] 3.2 {INR} [facility] Prothrombin Time w/INRon INR Coag (PPP) [Relative time] 3.2 {INR} Normal [facility] Comment on above: Order Comment: 411.2 Performed By: #### L 300.3900 ####[facility] [address] [facility] [phone] PT Coag (PPP) [Time] 32.5 s High 11.7-14.9 [facility] Comment on above: Order Comment: 411.2 Performed By: #### L 300.3900 ####[facility] [address] [facility] [address] Prothrombin timeOrdered By: Kvng Crisostomo on 05-05-2024 PT Coag (PPP) [Time] 32.5 s High 11.7-14.9 [facility] International normalized rat io (INR) calculationOrdered By: Kvng Crisostomo on 05-01-2024 INR Coag (Bld) [Relative time] 3.1 {INR} [facility] Prothrombin Time w/INRon INR Coag (PPP) [Relative time] 3.1 {INR} Normal [facility] Comment on above: Order Comment: 411.2 Performed By: #### L 300.3900 ####[facility] [address] [facility] [address] PT Coag (PPP) [Time] 31.9 s High 11.7-14.9 [facility] Comment on above: Order Comment: 411.2 Performed By: #### L 300.3900 ####[facility] [address] [facility] [address] Prothrombin timeOrdered By: Kvng Crisostomo on 05-01-2024 PT Coag (PPP) [Time] 31.9 s High 11.7-14.9 [facility] International normalized rat io (INR) calculationOrdered By: Carlos Cavazos on 04-28-2024 INR Coag (Bld) [Relative time] 2.6 {INR} [facility] Prothrombin Time w/INRon INR Coag (PPP) [Relative time] 2.6 {INR} Normal [facility] Comment on above: Order Comment: 411-2 Performed By: #### L 300.3900 ####[facility] [address] [place], [place], [id number] PT Coag (PPP) [Time] 27.3 s High 11.7-14.9 [facility] Comment on above: Order Comment: 411-2 Performed By: #### L 300.3900 ####[facility] [address] [place], [address] Prothrombin timeOrdered By: Carlos Cavazos on 04-28-2024 PT Coag (PPP) [Time] 27.3 s High 11.7-14.9 [facility] International normalized rat io (INR) calculationOrdered By: Kvng Crisostomo on 04-24-2024 INR Coag (Bld) [Relative time] 3.6 {INR} [facility] Prothrombin Time w/INRon INR Coag (PPP) [Relative time] 3.6 {INR} Normal [facility] Comment on above: Order Comment: 411.2 Performed By: #### L 300.3900 ####[facility] [address] [place], [phone] PT Coag (PPP) [Time] 35.6 s High 11.7-14.9 [facility] Comment on above: Order Comment: 411.2 Performed By: #### L 300.3900 ####[facility] [address] [place], [place], [phone] Prothrombin timeOrdered By: Kvng Crisostomo on 04-24-2024 PT Coag (PPP) [Time] 35.6 s High 11.7-14.9 [facility] International normalized rat io (INR) calculationOrdered By: Carlos Cavazos on 04-21-2024 INR Coag (Bld) [Relative time] 2.8 {INR} [facility] Prothrombin Time w/INRon INR Coag (PPP) [Relative time] 2.8 {INR} Normal [facility] Comment on above: Order Comment: 411-2 Performed By: #### L 300.3900 ####[facility] [address] [place], [place], [phone] PT Coag (PPP) [Time] 29.4 s High 11.7-14.9 [facility] Comment on above: Order Comment: 411-2 Performed By: #### L 300.3900 ####[facility] [address] [place], [place], [phone] Prothrombin timeOrdered By: Carlos Cavazos on 04-21-2024 PT Coag (PPP) [Time] 29.4 s High 11.7-14.9 [facility] International normalized rat io (INR) calculationOrdered By: Kvng Crisostomo on 04-17-2024 INR Coag (Bld) [Relative time] 3.1 {INR} [facility] Prothrombin Time w/INRon INR Coag (PPP) [Relative time] 3.1 {INR} Normal [facility] Comment on above: Order Comment: 411.2 Performed By: #### L 300.3900 ####[facility] [address] [place], [place], [phone] Prothrombin timeOrdered By: Kvng Crisostomo on 04-17-2024 PT Coag (PPP) [Time] 31.3 s High 11.7-14.9 [facility] Comment on above: Order Comment: 411.2 Performed By: #### L 300.3900 ####[facility] [address] [place], [place], [phone] International normalized rat io (INR) calculationOrdered By: Kvng Crisostomo on 04-14-2024 INR Coag (Bld) [Relative time] 3.3 {INR} [facility] Prothrombin Time w/INRon INR Coag (PPP) [Relative time] 3.3 {INR} Normal [facility] Comment on above: Order Comment: 411.2 Performed By: #### L 300.3900 ####[facility] [address] [place], [place], [phone] PT Coag (PPP) [Time] 33.2 s High 11.7-14.9 [facility] Comment on above: Order Comment: 411.2 Performed By: #### L 300.3900 ####[facility] [address] [place], [place], [phone] Prothrombin timeOrdered By: Kvng Crisostomo on 04-14-2024 PT Coag (PPP) [Time] 33.2 s High 11.7-14.9 [facility] International normalized rat io (INR) calculationOrdered By: Kvng Crisostomo on 04-10-2024 INR Coag (Bld) [Relative time] 2.8 {INR} [facility] Prothrombin Time w/INRon INR Coag (PPP) [Relative time] 2.8 {INR} Normal [facility] Comment on above: Order Comment: 411.2 Performed By: #### L 300.3900 ####[facility] [address] [place], [address] PT Coag (PPP) [Time] 29.2 s High 11.7-14.9 [facility] Comment on above: Order Comment: 411.2 Performed By: #### L 300.3900 ####[facility] [address] [facility] [address] Prothrombin timeOrdered By: Kvng Crisostomo on 04-10-2024 PT Coag (PPP) [Time] 29.2 s High 11.7-14.9 [facility] International normalized rat io (INR) calculationOrdered By: Carlos Cavazos on 04-07-2024 INR Coag (Bld) [Relative time] 2.7 {INR} [facility] Prothrombin Time w/INRon INR Coag (PPP) [Relative time] 2.7 {INR} Normal [facility] Comment on above: Order Comment: 411-2 Performed By: #### L 300.3900 ####[facility] [address] [place], [address] PT Coag (PPP) [Time] 28.1 s High 11.7-14.9 [facility] Comment on above: Order Comment: 411-2 Performed By: #### L 300.3900 ####[facility] [address] [place], [address] Prothrombin timeOrdered By: Carlos Cavazos on 04-07-2024 PT Coag (PPP) [Time] 28.1 s High 11.7-14.9 [facility] International normalized rat io (INR) calculationOrdered By: Kvng Crisostomo on 04-04-2024 INR Coag (Bld) [Relative time] 2.8 {INR} [facility] Prothrombin Time w/INRon INR Coag (PPP) [Relative time] 2.8 {INR} Normal [facility] Comment on above: Order Comment: 411.2 Performed By: #### L 300.3900 ####[facility] [address] [place], [phone] PT Coag (PPP) [Time] 28.9 s High 11.7-14.9 [facility] Comment on above: Order Comment: 411.2 Performed By: #### L 300.3900 ####[facility] [address] [place], [place], [phone] Prothrombin timeOrdered By: Kvng Crisostomo on 04-04-2024 PT Coag (PPP) [Time] 28.9 s High 11.7-14.9 [facility] International normalized rat io (INR) calculationOrdered By: Carlos Cavazos on 03-31-2024 INR Coag (Bld) [Relative time] 2.6 {INR} [facility] Prothrombin Time w/INRon INR Coag (PPP) [Relative time] 2.6 {INR} Normal [facility] Comment on above: Order Comment: 411-2 Performed By: #### L 300.3900 ####[facility] [address] [place], [place], [phone] PT Coag (PPP) [Time] 27.3 s High 11.7-14.9 [facility] Comment on above: Order Comment: 411-2 Performed By: #### L 300.3900 ####[facility] [address] [place], [address] Prothrombin timeOrdered By: Carlos Cavazos on 03-31-2024 PT Coag (PPP) [Time] 27.3 s High 11.7-14.9 [facility] International normalized rat io (INR) calculationOrdered By: [employer] on 03-27-2024 INR Coag (Bld) [Relative time] 2.2 {INR} [facility] Prothrombin Time w/INRon INR Coag (PPP) [Relative time] 2.2 {INR} Normal [facility] Comment on above: Order Comment: 411.2 Performed By: #### L 300.3900 ####[facility] [address] [place], [address] PT Coag (PPP) [Time] 24.3 s High 11.7-14.9 [facility] Comment on above: Order Comment: 411.2 Performed By: #### L 300.3900 ####[facility] [address] [place], [address] Prothrombin timeOrdered By: [employer] on 03-27-2024 PT Coag (PPP) [Time] 24.3 s High 11.7-14.9 [facility] International normalized rat io (INR) calculationOrdered By: Kvng Crisostomo on 03-24-2024 INR Coag (Bld) [Relative time] 1.8 {INR} [facility] Prothrombin Time w/INRon INR Coag (PPP) [Relative time] 1.8 {INR} Normal [facility] Comment on above: Order Comment: 411.2 Performed By: #### L 300.3900 ####[facility] [address] [place], [address] PT Coag (PPP) [Time] 20.7 s High 11.7-14.9 [facility] Comment on above: Order Comment: 411.2 Performed By: #### L 300.3900 ####[facility] [address] [place], [address] Prothrombin timeOrdered By: Kvng Crisostomo on 03-24-2024 PT Coag (PPP) [Time] 20.7 s High 11.7-14.9 [facility] International normalized rat io (INR) calculationOrdered By: [employer] on 03-20-2024 INR Coag (Bld) [Relative time] 1.8 {INR} [facility] Prothrombin Time w/INRon INR Coag (PPP) [Relative time] 1.8 {INR} Normal [facility] Comment on above: Order Comment: 411.2 Performed By: #### L 300.3900 ####[facility] [address] [place], [address] PT Coag (PPP) [Time] 20.9 s High 11.7-14.9 [facility] Comment on above: Order Comment: 411.2 Performed By: #### L 300.3900 ####[facility] [address] [place], [address] Prothrombin timeOrdered By: [employer] on 03-20-2024 PT Coag (PPP) [Time] 20.9 s High 11.7-14.9 [facility] International normalized rat io (INR) calculationOrdered By: Kvng Crisostomo on 03-19-2024 INR Coag (Bld) [Relative time] 2.4 {INR} [facility] Prothrombin Time w/INRon INR Coag (PPP) [Relative time] 2.4 {INR} Normal [facility] Comment on above: Order Comment: 411.2 Performed By: #### L 300.3900 ####[facility] [address] [place], [address] PT Coag (PPP) [Time] 26.4 s High 11.7-14.9 [facility] Comment on above: Order Comment: 411.2 Performed By: #### L 300.3900 ####[facility] [address] [place], [address] Prothrombin timeOrdered By: Kvng Crisostomo on 03-19-2024 PT Coag (PPP) [Time] 26.4 s High 11.7-14.9 [facility] International normalized rat io (INR) calculationOrdered By: [employer] on 03-18-2024 INR Coag (Bld) [Relative time] 3.2 {INR} [facility] Prothrombin Time w/INRon INR Coag (PPP) [Relative time] 3.2 {INR} Normal [facility] Comment on above: Order Comment: 411.2 Performed By: #### L 300.3900 ####[facility] [address] [place], [address] PT Coag (PPP) [Time] 32.3 s High 11.7-14.9 [facility] Comment on above: Order Comment: 411.2 Performed By: #### L 300.3900 ####[facility] [address] [place], [place], [phone] Prothrombin timeOrdered By: [employer] on 03-18-2024 PT Coag (PPP) [Time] 32.3 s High 11.7-14.9 [facility] International normalized rat io (INR) calculationOrdered By: [employer] on 03-17-2024 INR Coag (Bld) [Relative time] 3.6 {INR} [facility] Prothrombin Time w/INRon INR Coag (PPP) [Relative time] 3.6 {INR} Normal [facility] Comment on above: Order Comment: 411.2 Performed By: #### L 300.3900 ####[facility] [address] [place], [address] PT Coag (PPP) [Time] 35.7 s High 11.7-14.9 [facility] Comment on above: Order Comment: 411.2 Performed By: #### L 300.3900 ####[facility] [address] [place], [address] Prothrombin timeOrdered By: [employer] on 03-17-2024 PT Coag (PPP) [Time] 35.7 s High 11.7-14.9 [facility] International normalized rat io (INR) calculationOrdered By: Carlos Cavazos on 03-14-2024 INR Coag (Bld) [Relative time] 3.5 {INR} [facility] Prothrombin Time w/INRon INR Coag (PPP) [Relative time] 3.5 {INR} Normal [facility] Comment on above: Order Comment: 411-2 Performed By: #### L 300.3900 ####[facility] [address] [place], [address] PT Coag (PPP) [Time] 35.0 s High 11.7-14.9 [facility] Comment on above: Order Comment: 411-2 Performed By: #### L 300.3900 ####[facility] [address] [place], [address] Prothrombin timeOrdered By: Carlos Cavazos on 03-14-2024 PT Coag (PPP) [Time] 35.0 s High 11.7-14.9 [facility] International normalized rat io (INR) calculationOrdered By: [employer] on 03-13-2024 INR Coag (Bld) [Relative time] 3.2 {INR} [facility] Prothrombin Time w/INRon INR Coag (PPP) [Relative time] 3.2 {INR} Normal [facility] Comment on above: Performed By: #### L 300.3900 ####[facility] [address] [place], [address] PT Coag (PPP) [Time] 32.2 s High 11.7-14.9 [facility] Comment on above: Performed By: #### L 300.3900 ####[facility] [address] [place], [address] Prothrombin timeOrdered By: [employer] on 03-13-2024 PT Coag (PPP) [Time] 32.2 s High 11.7-14.9 [facility] Prothrombin Time w/INRon INR Coag (PPP) [Relative time] 2.6 {INR} Normal [facility] Comment on above: Order Comment: 411.2 Performed By: #### L 300.3900 ####[facility] [address] [place], [address] PT Coag (PPP) [Time] 27.7 s High 11.7-14.9 [facility] Comment on above: Order Comment: 411.2 Performed By: #### L 300.3900 ####[facility] [address] [place], [address] Prothrombin Time w/INRon 10- 31-2024 INR Coag (PPP) [Relative time] 3.1 {INR} Normal [facility] Comment on above: Order Comment: 411.2 Performed By: #### L 300.3900 ####[facility] [address] [place], [address] PT Coag (PPP) [Time] 31.4 s High 11.7-14.9 [facility] Comment on above: Order Comment: 411.2 Performed By: #### L 300.3900 ####[facility] [address] [place], [address] Prothrombin Time w/INRon INR Coag (PPP) [Relative time] 3.1 {INR} Normal [facility] Comment on above: Order Comment: 411.2 Performed By: #### L 300.3900 ####[facility] [address] [place], [address] PT Coag (PPP) [Time] 31.8 s High 11.7-14.9 [facility] Comment on above: Order Comment: 411.2 Performed By: #### L 300.3900 ####[facility] [address] [place], [address] Prothrombin Time w/INRon INR Coag (PPP) [Relative time] 3.0 {INR} Normal [facility] Comment on above: Order Comment: 411.2 Performed By: #### L 300.3900 ####[facility] [address] [place], [address] PT Coag (PPP) [Time] 30.6 s High 11.7-14.9 [facility] Comment on above: Order Comment: 411.2 Performed By: #### L 300.3900 ####[facility] [address] [place], [address] Prothrombin Time w/INRon INR Coag (PPP) [Relative time] 2.6 {INR} Normal [facility] Comment on above: Order Comment: 411-2 Performed By: #### L 300.3900 ####[facility] [address] [place], [address] PT Coag (PPP) [Time] 27.5 s High 11.7-14.9 [facility] Comment on above: Order Comment: 411-2 Performed By: #### L 300.3900 ####[facility] [address] [place], [address] Prothrombin Time w/INRon INR Coag (PPP) [Relative time] 2.3 {INR} Normal [facility] Comment on above: Order Comment: 411.2 Performed By: #### L 300.3900 ####[facility] [address] [place], [address] PT Coag (PPP) [Time] 25.5 s High 11.7-14.9 [facility] Comment on above: Order Comment: 411.2 Performed By: #### L 300.3900 ####[facility] [address] [place], [address] Prothrombin Time w/INRon INR Coag (PPP) [Relative time] 1.9 {INR} Normal [facility] Comment on above: Order Comment: 411.2 Performed By: #### L 300.3900 ####[facility] [address] [place], [address] PT Coag (PPP) [Time] 21.3 s High 11.7-14.9 [facility] Comment on above: Order Comment: 411.2 Performed By: #### L 300.3900 ####[facility] [address] [place], [address] Prothrombin Time w/INRon INR Coag (PPP) [Relative time] 2.5 {INR} Normal [facility] Comment on above: Order Comment: 411.2 Performed By: #### L 300.3900 ####[facility] [address] [place], [address] PT Coag (PPP) [Time] 26.5 s High 11.7-14.9 [facility] Comment on above: Order Comment: 411.2 Performed By: #### L 300.3900 ####[facility] [address] [place], [address] Prothrombin Time w/INRon INR Coag (PPP) [Relative time] 2.9 {INR} Normal [facility] Comment on above: Order Comment: 411.2 Performed By: #### L 300.3900 ####[facility] [address] [place], [address] PT Coag (PPP) [Time] 30.2 s High 11.7-14.9 [facility] Comment on above: Order Comment: 411.2 Performed By: #### L 300.3900 ####[facility] [address] [place], [address] Prothrombin Time w/INRon INR Coag (PPP) [Relative time] 3.6 {INR} Normal [facility] Comment on above: Order Comment: 411.2 Performed By: #### L 300.3900 ####[facility] [address] [place], [address] PT Coag (PPP) [Time] 35.3 s High 11.7-14.9 [facility] Comment on above: Order Comment: 411.2 Performed By: #### L 300.3900 ####[facility] [address] [place], [address] Prothrombin Time w/INRon INR Coag (PPP) [Relative time] 2.8 {INR} Normal [facility] Comment on above: Order Comment: 411-2 Performed By: #### L 300.3900 ####[facility] [address] [place], [address] PT Coag (PPP) [Time] 29.4 s High 11.7-14.9 [facility] Comment on above: Order Comment: 411-2 Performed By: #### L 300.3900 ####[facility] [address] [place], [address] Prothrombin Time w/INRon INR Coag (PPP) [Relative time] 2.9 {INR} Normal [facility] Comment on above: Order Comment: 411.2 Performed By: #### L 300.3900 ####[facility] [address] [place], [address] PT Coag (PPP) [Time] 29.9 s High 11.7-14.9 [facility] Comment on above: Order Comment: 411.2 Performed By: #### L 300.3900 ####[facility] [address] [place], [address] Prothrombin Time w/INRon INR Coag (PPP) [Relative time] 2.2 {INR} Normal [facility] Comment on above: Order Comment: 411.2 Performed By: #### L 300.3900 ####[facility] [address] [place], [address] PT Coag (PPP) [Time] 24.1 s High 11.7-14.9 [facility] Comment on above: Order Comment: 411.2 Performed By: #### L 300.3900 ####[facility] [address] [place], [address] Prothrombin Time w/INRon INR Coag (PPP) [Relative time] 2.1 {INR} Normal [facility] Comment on above: Order Comment: 411-2 Performed By: #### L 300.3900 ####[facility] [address] [place], [address] PT Coag (PPP) [Time] 23.0 s High 11.7-14.9 [facility] Comment on above: Order Comment: 411-2 Performed By: #### L 300.3900 ####[facility] [address] [place], [address] Prothrombin Time w/INRon INR Coag (PPP) [Relative time] 2.8 {INR} Normal [facility] Comment on above: Performed By: #### L 300.3900 ####[facility] [address] [place], [address] PT Coag (PPP) [Time] 28.9 s High 11.7-14.9 [facility] Comment on above: Performed By: #### L 300.3900 ####[facility] [address] [place], [address] Protime w/INR Fingerstickon 01-29-2024 INR Coag (PPP) [Relative time] 3.2 {INR} Normal [facility] Comment on above: Result Comment: Crit ical Value > 4.0 Performed By: #### L 9200.0000 ####[facility] [address] [place], [address] Protime Coagsen 31.8 SEC High 11.7-14.9 [facility] Comment on above: Performed By: #### L 9200.0000 ####[facility] [address] [place], [address] KEPPRA (LEVETIRACETAM)on KEPPRA 35.2 ug/mL Normal 10.0-40.0 [facility] Comment on above: Order Comment: 411-2 Result Comment: Perf ormed at: BN - [facility] [address] [id number] Director: Alpesh Vázquez MD, Phone: [phone] Performed By: #### L 300.3900, L3310.0000 ####[facility] [address] [place], [address] Prothrombin Time w/INRon INR Coag (PPP) [Relative time] 2.9 {INR} Normal [facility] Comment on above: Order Comment: 411-2 Performed By: #### L 300.3900, L3310.0000 ####[facility] [address] [place], [address] PT Coag (PPP) [Time] 30.1 s High 11.7-14.9 [facility] Comment on above: Order Comment: 411-2 Performed By: #### L 300.3900, L3310.0000 ####[facility] [address] [place], [address] Prothrombin Time w/INRon INR Coag (PPP) [Relative time] 2.3 {INR} Normal [facility] Comment on above: Order Comment: 411-2 Performed By: #### L 300.3900 ####[facility] [address] [place], [address] PT Coag (PPP) [Time] 25.2 s High 11.7-14.9 [facility] Comment on above: Order Comment: 411-2 Performed By: #### L 300.3900 ####[facility] [address] [place], [address] Prothrombin Time w/INRon INR Coag (PPP) [Relative time] 2.7 {INR} Normal [facility] Comment on above: Order Comment: 411-2 Performed By: #### L 300.3900 ####[facility] [address] [place], [address] PT Coag (PPP) [Time] 28.3 s High 11.7-14.9 [facility] Comment on above: Order Comment: 411-2 Performed By: #### L 300.3900 ####[facility] [address] [place], [address] Protime w/INR Fingerstickon 01-10-2024 INR Coag (PPP) [Relative time] 3.5 {INR} Normal [facility] Comment on above: Result Comment: Crit ical Value > 4.0 Performed By: #### L 9200.0000 ####[facility] [address] [place], [address] Protime Coagsen 34.2 SEC High 11.7-14.9 [facility] Comment on above: Performed By: #### L 9200.0000 ####[facility] [address] [place], [address] CBC-Complete Blood Cnt No Di ffon 01-08-2024 Erythrocyte distribution width (RBC) [Ratio] 15.2 % High 11.6-14.6 [facility] Comment on above: Order Comment: 411-2 Performed By: #### L 100.0500, L300.3900 ####[facility] [address] [place], [address] Hematocrit (Bld) [Volume fraction] 39.0 % Low 40-54 [facility] Comment on above: Order Comment: 411-2 Performed By: #### L 100.0500, L300.3900 ####[facility] [address] [place], [address] Hemoglobin (Bld) [Mass/Vol] 12.1 g/dL Low 13.0-16.5 [facility] Comment on above: Order Comment: 411-2 Performed By: #### L 100.0500, L300.3900 ####[facility] [address] [place], [address] MCH (RBC) [Entitic mass] 27.1 pg Normal 27.0-32.0 [facility] Comment on above: Order Comment: 411-2 Performed By: #### L 100.0500, L300.3900 ####[facility] [address] [place], [address] MCHC (RBC) [Mass/Vol] 31.0 g/dL Low 32-36 [facility] Comment on above: Order Comment: 411-2 Performed By: #### L 100.0500, L300.3900 ####[facility] [address] [place], [address] MCV (RBC) [Entitic vol] 87.2 fL Normal 80-94 [facility] Comment on above: Order Comment: 411-2 Performed By: #### L 100.0500, L300.3900 ####[facility] [address] [place], [address] Platelet mean volume (Bld) [Entitic vol] 10.8 fL Normal 6.2-12.0 [facility] Comment on above: Order Comment: 411-2 Performed By: #### L 100.0500, L300.3900 ####[facility] [address] [place], [address] Platelets (Bld) [#/Vol] 300 10*3/uL Normal 150-450 [facility] Comment on above: Order Comment: 411-2 Performed By: #### L 100.0500, L300.3900 ####[facility] [address] [place], [address] RBC (Bld) [#/Vol] 4.47 10*6/uL Low 4.6-6.2 [facility] Comment on above: Order Comment: 411-2 Performed By: #### L 100.0500, L300.3900 ####[facility] [address] [place], [address] RDW SD 48.7 fl High 35.1-43.9 [facility] Comment on above: Order Comment: 411-2 Performed By: #### L 100.0500, L300.3900 ####[facility] [address] [place], [address] WBC (Bld) [#/Vol] 13.0 10*3/uL High 4.4-11.0 [facility] Comment on above: Order Comment: 411-2 Performed By: #### L 100.0500, L300.3900 ####[facility] [address] [place], [address] Prothrombin Time w/INRon INR Coag (PPP) [Relative time] 3.9 {INR} Normal [facility] Comment on above: Order Comment: 411-2 Performed By: #### L 100.0500, L300.3900 ####[facility] [address] [place], [address] PT Coag (PPP) [Time] 37.8 s High 11.7-14.9 [facility] Comment on above: Order Comment: 411-2 Performed By: #### L 100.0500, L300.3900 ####[facility] [address] 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 Normal [facility] CT ABDOMEN PELVIS WO IV CONT [facility] 09-07-2023 CT ABDOMEN PELVIS [...] has a hernia [facility] 08-29-2023 36 Lm on daughters vm t o advise them to call the number for the marketing traffic manager to get clarification, and to call back with further questions [facility] 08-27-2023 36 Yes, they will need to call the number given to them. [facility] 36 Please advise [facility] 08-21-2023 36 Name of caller: Zion holt Contact phone number: [phone] Relationship to Patient: patient Provider: MD Quinn Practice: [facility] Chief Complaint/Reason for Call: Shanthi called in to see if Pt would need to come by cot for his CT appt due to Pt being Boaz. CAC did reach out to office and was advised to reach out to Central Scheduling. CAC did reach out to and was advised to let [facility] know that she would need to reach out to call Maury Cedeño Home Mission Worker at [facility] [phone] to get clarifications. CAC did reach back out to [facility] and advised and provider Maury's #. Please advise Best time of day caller can be reached: Any Patient advised that office/PCP has 24-48 business hours to return their call: N/A [facility] Laboratory - CoagulationOrde red By: Carlos Cavazos on 08-21-2023 INR Coag (Bld) [Relative time] 2.7 {INR} [facility] PT Coag (PPP) [Time] 28.9 s 11.7-14.9 [facility] Office Visiton 08-13-2023 Follow-up visit [id number] Tamie Sifuentse cheng Gonzalez 1950 Walt Pak Provider Department Center 08/13/2023 [id number] BUCK [facility] None Family History Problem Relation Age of Onset Heart disease Father Cancer Mother Family Status - Relation Status Age at Father Mother Level of Service:28082 ID OFFICE/OUTPATIENT NEW MODERATE MDM 45 MINUTES Reason for Visit and Comments: New Patient [542] - Bilateral flank pain, hx of kidney stones Nephrolithiasis [995135] [facility] Progress Noteon 08-13-2023 [...] Hydrocephalus, adult (CMS/HCC) (HCC) Kidney stone 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 Normal [facility] No Panel InformationOrdered By: Carlos Cavazos on 08-03-2023 Levetiracetam (Keppra) Level 32.4 ug/mL 10.0-40.0 [facility] Comment on above: Performed at: BN - [facility] [address] [id number] Director: Alpesh Vázquez MD, Phone: [phone] Basophil percentageOrdered B y: Carlos Cavazos on 07-20-2023 Chloride [Moles/Vol] 106 mmol/L 98-107 [facility] Glucose [Mass/Vol] 98 mg/dL 74-106 [facility] Hemoglobin (Bld) [Mass/Vol] 12.5 g/dL 13.0-16.5 [facility] Potassium [Moles/Vol] 4.3 mmol/L 3.5-5.1 [facility] Sodium [Moles/Vol] 135 mmol/L 136-145 [facility] WBC (Bld) [#/Vol] 13.0 10*3/uL 4.4-11.0 [facility] Determination of erythrocyte mean corpuscular volume (MCV)Ordered By: Carlos Cavazos on 07-20-2023 MCV (RBC) [Entitic vol] 86.2 fL 80-94 [facility] Erythrocyte distribution wid th ratioOrdered By: Carlos Cavazos on 07-20-2023 Erythrocyte distribution width (RBC) [Ratio] 15.3 % 11.6-14.6 [facility] Erythrocyte distribution wid th standard deviationOrdered By: Carlos Cavazos on 07-20-2023 Erythrocyte distribution width (RBC) [Entitic vol] 48.1 fL 35.1-43.9 [facility] Hematocrit Auto (Bld) [Volum e fraction]Ordered By: Carlos Cavazos on 07-20-2023 Hematocrit (Bld) [Volume fraction] 39.9 % 40-54 [facility] Laboratory - Chemistry and C hemistry - challengeOrdered By: Carlos Cavazos on 07-20-2023 CO2 [Moles/Vol] 24.0 mmol/L 21.0-32.0 [facility] Urea nitrogen/Creatinine [Mass ratio] 24.6 mg/mg 10-20 [facility] Laboratory - Hematology and Cell countsOrdered By: Carlos Cavazos on 07-20-2023 MCH (RBC) [Entitic mass] 27.0 pg 27.0-32.0 [facility] MCHC (RBC) [Mass/Vol] 31.3 g/dL 32-36 [facility] Platelet mean volume (Bld) [Entitic vol] 10.7 fL 6.2-12.0 [facility] Platelets (Bld) [#/Vol] 260 10*3/uL 150-450 [facility] No Panel InformationOrdered By: Carlos Cavazos on 07-20-2023 Estimated GFR (MDRD) Amer 114 mL/min >60 [facility] Comment on above: GFR Calc Estimated GFR (MDRD) Non-Af Amer 94 mL/min >60 [facility] Comment on above: Non- GFR Calc RBC Auto (Bld) [#/Vol]Ordere d By: Carlos Cavazos on 07-20-2023 RBC (Bld) [#/Vol] 4.63 10*6/uL 4.6-6.2 [facility] Serum or plasma calcium oral urement (mass/volume)Ordered By: Carlos Cavazos on 07-20-2023 Calcium [Mass/Vol] 8.6 mg/dL 8.5-10.1 [facility] Serum or plasma creatinine m easurement (mass/volume)Ordered By: Carlos Cavazos on 07-20-2023 Creatinine [Mass/Vol] 0.85 mg/dL 0.70-1.30 [facility] Comment on above: The validity of the calculated GFR & GFRAA in patients over 70 years has not been determined. Clinical correlation is essential. Serum or plasma urea nitroge n measurement (mass/volume)Ordered By: Carlos Cavazos on 07-20-2023 Urea nitrogen [Mass/Vol] 21 mg/dL 7-18 [facility] Thin prep Papanicolaou smear with manual screeningOrdered By: Carlos Cavazos on 07-20-2023 Thin prep Papanicolaou smear with manual screening 5 5-15 [facility] Basophil percentageOrdered B y: Carlos Cavazos on 07-18-2023 Chloride [Moles/Vol] 102 mmol/L 98-107 [facility] Glucose [Mass/Vol] 96 mg/dL 74-106 [facility] Hemoglobin (Bld) [Mass/Vol] 12.3 g/dL 13.0-16.5 [facility] Potassium [Moles/Vol] 4.2 mmol/L 3.5-5.1 [facility] Sodium [Moles/Vol] 136 mmol/L 136-145 [facility] WBC (Bld) [#/Vol] 14.7 10*3/uL 4.4-11.0 [facility] Determination of erythrocyte mean corpuscular volume (MCV)Ordered By: Carlos Cavazos on 07-18-2023 MCV (RBC) [Entitic vol] 85.4 fL 80-94 [facility] Erythrocyte distribution wid th ratioOrdered By: Carlos Cavazos on 07-18-2023 Erythrocyte distribution width (RBC) [Ratio] 15.1 % 11.6-14.6 [facility] Erythrocyte distribution wid th standard deviationOrdered By: Carlos Cavazos on 07-18-2023 Erythrocyte distribution width (RBC) [Entitic vol] 47.3 fL 35.1-43.9 [facility] Hematocrit Auto (Bld) [Volum e fraction]Ordered By: Carlos Cavazos on 07-18-2023 Hematocrit (Bld) [Volume fraction] 39.3 % 40-54 [facility] Laboratory - Chemistry and C hemistry - challengeOrdered By: Carlos Cavazos on 07-18-2023 CO2 [Moles/Vol] 27.0 mmol/L 21.0-32.0 [facility] Urea nitrogen/Creatinine [Mass ratio] 24.4 mg/mg 10-20 [facility] Laboratory - Hematology and Cell countsOrdered By: Carlos Cavazos on 07-18-2023 MCH (RBC) [Entitic mass] 26.7 pg 27.0-32.0 [facility] MCHC (RBC) [Mass/Vol] 31.3 g/dL 32-36 [facility] Platelet mean volume (Bld) [Entitic vol] 10.3 fL 6.2-12.0 [facility] Platelets (Bld) [#/Vol] 288 10*3/uL 150-450 [facility] No Panel InformationOrdered By: Carlos Cavazos on 07-18-2023 Estimated GFR (MDRD) Amer 113 mL/min >60 [facility] Comment on above: GFR Calc Estimated GFR (MDRD) Non-Af Amer 93 mL/min >60 [facility] Comment on above: Non- GFR Calc RBC Auto (Bld) [#/Vol]Ordere d By: Carlos Cavazos on 07-18-2023 RBC (Bld) [#/Vol] 4.60 10*6/uL 4.6-6.2 [facility] Serum or plasma calcium oral urement (mass/volume)Ordered By: Carlos Cavazos on 07-18-2023 Calcium [Mass/Vol] 8.9 mg/dL 8.5-10.1 [facility] Serum or plasma creatinine m easurement (mass/volume)Ordered By: Carlos Cavazos on 07-18-2023 Creatinine [Mass/Vol] 0.86 mg/dL 0.70-1.30 [facility] Comment on above: The validity of the calculated GFR & GFRAA in patients over 70 years has not been determined. Clinical correlation is essential. Serum or plasma urea nitroge n measurement (mass/volume)Ordered By: Carlos Cavazos on 07-18-2023 Urea nitrogen [Mass/Vol] 21 mg/dL 7-18 [facility] Thin prep Papanicolaou smear with manual screeningOrdered By: Carlos Cavazos on 07-18-2023 Thin prep Papanicolaou smear with manual screening 7 5-15 [facility] Basophil percentageOrdered B y: Carlos Cavazos on 07-17-2023 Basophil percentage 0-5 SEEN /hpf 0-5 [facility] Bilirubin Test strip Ql (U)O rdered By: Carlos Cavazos on 07-17-2023 Bilirubin Ql (U) Negative Negative [facility] Calcium oxalate crystals det ection in urine sediment by light microscopyOrdered By: Carlos Cavazos on 07-17-2023 Calcium oxalate crystals LM Ql (Urine sed) 1+ /hpf [facility] Culture, urineOrdered By: Sharif Crouch on 07-17-2023 Bacteria identified Cx Nom (U) Positive [facility] Ketones Test strip Ql (U)Ord ered By: Carlos Cavazos on 07-17-2023 Ketones Ql (U) Negative Negative [facility] Mucus LM Ql (Urine sed)Order ed By: Carlos Cavazos on 07-17-2023 Mucus Ql (Urine sed) 0 SEEN /hpf [facility] Nitrite Test strip Ql (U)Ord ered By: Carlos Cavazos on 07-17-2023 Nitrite Ql (U) Negative Negative [facility] No Panel InformationOrdered By: Carlos Cavazos on 07-17-2023 Urine RBC 0 SEEN /hpf 0-5 [facility] Protein Test strip Ql (U)Ord ered By: Carlos Cavazos on 07-17-2023 Protein Ql (U) Negative Negative [facility] Squamous epithelial cells de tection in urine sediment by light microscopyOrdered By: Carlos Cavazos on 07-17-2023 Epithelial cells.squamous LM Ql (Urine sed) 0-5 SEEN /hpf 0-5 [facility] Urine blood detectionOrdered By: Carlos Cavazos on 07-17-2023 RBC Ql (U) Negative Negative [facility] Urine clarityOrdered By: Ted Cavazos on 07-17-2023 Clarity (U) Clear Clear [facility] Urine color determinationOrd ered By: Carlos Cavazos on 07-17-2023 Color (U) Yellow Yellow [facility] Urine glucose detectionOrder ed By: Carlos Cavzaos on 07-17-2023 Glucose Ql (U) Normal mg/dl Normal [facility] Urine leukocyte esterase det ection by dipstickOrdered By: Carlos Cavazos on 07-17-2023 Leukocyte esterase Test strip Ql (U) 25 /ul Negative [facility] Urine pHOrdered By: Carlos flores on 07-17-2023 pH (U) 6.0 [pH] 5.0 - 8.0 [facility] Urine sediment bacteria coun t by microscopy (number/high power field)Ordered By: Carlos Cavazos on 07-17-2023 Bacteria LM.HPF (Urine sed) [#/Area] 0 /[HPF] None Seen [facility] Urine specific gravity measu rementOrdered By: Carlos Cavazos on 07-17-2023 Specific gravity (U) [Rel density] 1.020 1.002-1.030 [facility] Urine urobilinogen measureme ntOrdered By: Carlos Cavazos on 07-17-2023 Urobilinogen Ql (U) Normal mg/dl Normal [facility] Absolute lymphocyte countOrd ered By: Carlos Cavazos on 07-16-2023 Lymphocytes Auto (Unsp spec) [#/Vol] 6.02 10*3/uL 0.83-4.51 [facility] Automated lymphocyte count a s percentage of total leukocytesOrdered By: Carlos Cavazos on 07-16-2023 Lymphocytes/100 WBC Auto (Unsp spec) 49.1 % 19-41 [facility] Basophil percentageOrdered B y: Carlos Cavazos on 07-16-2023 Basophils/100 WBC (Bld) 0.6 % 0-1 [facility] Chloride [Moles/Vol] 105 mmol/L 98-107 [facility] Eosinophils/100 WBC (Bld) 2.0 % 0-5 [facility] Glucose [Mass/Vol] 93 mg/dL 74-106 [facility] Hemoglobin (Bld) [Mass/Vol] 12.1 g/dL 13.0-16.5 [facility] Monocytes/100 WBC (Bld) 5.3 % 0-10 [facility] Neutrophils (Bld) [#/Vol] 5.2 10*3/uL 2.0-7.7 [facility] Neutrophils/100 WBC (Bld) 42.8 % 47-70 [facility] Potassium [Moles/Vol] 4.3 mmol/L 3.5-5.1 [facility] Sodium [Moles/Vol] 138 mmol/L 136-145 [facility] WBC (Bld) [#/Vol] 12.3 10*3/uL 4.4-11.0 [facility] Blood manual differential co mment interpretation (narrative result)Ordered By: Carlos Cavazos on 07-16-2023 Manual differential comment Shemar (Bld) [Interp] SCANNED [facility] Determination of erythrocyte mean corpuscular volume (MCV)Ordered By: Carlos Cavazos on 07-16-2023 MCV (RBC) [Entitic vol] 86.8 fL 80-94 [facility] Erythrocyte distribution wid th ratioOrdered By: Carlos Cavazos on 07-16-2023 Erythrocyte distribution width (RBC) [Ratio] 15.3 % 11.6-14.6 [facility] Erythrocyte distribution wid th standard deviationOrdered By: Carlos Cavazos on 07-16-2023 Erythrocyte distribution width (RBC) [Entitic vol] 48.9 fL 35.1-43.9 [facility] Hematocrit Auto (Bld) [Volum e fraction]Ordered By: Carlos Cavazos on 07-16-2023 Hematocrit (Bld) [Volume fraction] 38.7 % 40-54 [facility] Immature granulocytes/100 WB C Auto (Bld)Ordered By: Carlos Cavazos on 07-16-2023 Immature granulocytes/100 WBC (Bld) 0.200 % 0.0-0.9 [facility] Comment on above: IG% - Immature Granu locytes (promyelocytes, myelocytes and metamyelocytes) > 1% indicates that a LEFT SHIFT is Present. Laboratory - Chemistry and C hemistry - challengeOrdered By: Carlos Cavazos on 07-16-2023 CO2 [Moles/Vol] 25.0 mmol/L 21.0-32.0 [facility] Urea nitrogen/Creatinine [Mass ratio] 21.0 mg/mg 10-20 [facility] [facility] - CoagulationOrde red By: Carlos Cavazos on 07-16-2023 INR Coag (Bld) [Relative time] 2.4 {INR} [facility] PT Coag (PPP) [Time] 25.7 s 11.7-14.9 [facility] Laboratory - Hematology and Cell countsOrdered By: Carlos Cavazos on 07-16-2023 MCH (RBC) [Entitic mass] 27.1 pg 27.0-32.0 [facility] MCHC (RBC) [Mass/Vol] 31.3 g/dL 32-36 [facility] Nucleated RBC/100 WBC (Bld) [Ratio] 0 % 0-5 [facility] Platelet mean volume (Bld) [Entitic vol] 10.5 fL 6.2-12.0 [facility] Platelets (Bld) [#/Vol] 289 10*3/uL 150-450 [facility] No Panel InformationOrdered By: Carlos Cavazos on 07-16-2023 Estimated GFR (MDRD) Amer 106 mL/min >60 [facility] Comment on above: GFR Calc Estimated GFR (MDRD) Non-Af Amer 88 mL/min >60 [facility] Comment on above: Non- GFR Calc Reactive Lymphocytes 1+ [facility] RBC Auto (Bld) [#/Vol]Ordere d By: Carlos Cavazos on 07-16-2023 RBC (Bld) [#/Vol] 4.46 10*6/uL 4.6-6.2 [facility] Serum or plasma calcium oral urement (mass/volume)Ordered By: Carlos Cavazos on 07-16-2023 Calcium [Mass/Vol] 9.0 mg/dL 8.5-10.1 [facility] Serum or plasma creatinine m easurement (mass/volume)Ordered By: Carlos Cavazos on 07-16-2023 Creatinine [Mass/Vol] 0.90 mg/dL 0.70-1.30 [facility] Comment on above: The validity of the calculated GFR & GFRAA in patients over 70 years has not been determined. Clinical correlation is essential. Serum or plasma urea nitroge n measurement (mass/volume)Ordered By: Carlos Cavazos on 07-16-2023 Urea nitrogen [Mass/Vol] 19 mg/dL 7-18 [facility] Thin prep Papanicolaou smear with manual screeningOrdered By: Carlos Cavazos on 07-16-2023 Thin prep Papanicolaou smear with manual screening 8 5-15 [facility] Absolute lymphocyte countOrd ered By: Carlos Cavazos on 07-13-2023 Lymphocytes Auto (Unsp spec) [#/Vol] 5.44 10*3/uL 0.83-4.51 [facility] Automated lymphocyte count a s percentage of total leukocytesOrdered By: Carlos Cavazos on 07-13-2023 Lymphocytes/100 WBC Auto (Unsp spec) 47.3 % 19-41 [facility] Basophil percentageOrdered B y: Carlos Cavazos on 07-13-2023 Basophils/100 WBC (Bld) 0.4 % 0-1 [facility] Chloride [Moles/Vol] 107 mmol/L 98-107 [facility] Eosinophils/100 WBC (Bld) 1.7 % 0-5 [facility] Glucose [Mass/Vol] 96 mg/dL 74-106 [facility] Hemoglobin (Bld) [Mass/Vol] 13.5 g/dL 13.0-16.5 [facility] Monocytes/100 WBC (Bld) 4.3 % 0-10 [facility] Neutrophils (Bld) [#/Vol] 5.3 10*3/uL 2.0-7.7 [facility] Neutrophils/100 WBC (Bld) 46.0 % 47-70 [facility] Potassium [Moles/Vol] 4.0 mmol/L 3.5-5.1 [facility] Sodium [Moles/Vol] 139 mmol/L 136-145 [facility] WBC (Bld) [#/Vol] 11.5 10*3/uL 4.4-11.0 [facility] Determination of erythrocyte mean corpuscular volume (MCV)Ordered By: Carlos Cavazos on 07-13-2023 MCV (RBC) [Entitic vol] 86.1 fL 80-94 [facility] Erythrocyte distribution wid th ratioOrdered By: Carlos Cavazos on 07-13-2023 Erythrocyte distribution width (RBC) [Ratio] 15.2 % 11.6-14.6 [facility] Erythrocyte distribution wid th standard deviationOrdered By: Carlos Cavazos on 07-13-2023 Erythrocyte distribution width (RBC) [Entitic vol] 48.0 fL 35.1-43.9 [facility] Hematocrit Auto (Bld) [Volum e fraction]Ordered By: Carlos Cavazos on 07-13-2023 Hematocrit (Bld) [Volume fraction] 42.2 % 40-54 [facility] Immature granulocytes/100 WB C Auto (Bld)Ordered By: Carlos Cavazos on 07-13-2023 Immature granulocytes/100 WBC (Bld) 0.300 % 0.0-0.9 [facility] Comment on above: IG% - Immature Granu locytes (promyelocytes, myelocytes and metamyelocytes) > 1% indicates that a LEFT SHIFT is Present. Laboratory - Chemistry and C hemistry - challengeOrdered By: Carlos Cavazos on 07-13-2023 CO2 [Moles/Vol] 26.0 mmol/L 21.0-32.0 [facility] Urea nitrogen/Creatinine [Mass ratio] 21.8 mg/mg 10-20 [facility] Laboratory - Hematology and Cell countsOrdered By: Carlos Cavazos on 07-13-2023 MCH (RBC) [Entitic mass] 27.6 pg 27.0-32.0 [facility] MCHC (RBC) [Mass/Vol] 32.0 g/dL 32-36 [facility] Nucleated RBC/100 WBC (Bld) [Ratio] 0 % 0-5 [facility] Platelet mean volume (Bld) [Entitic vol] 10.1 fL 6.2-12.0 [facility] Platelets (Bld) [#/Vol] 279 10*3/uL 150-450 [facility] No Panel InformationOrdered By: Carlos Cavazos on 07-13-2023 Estimated GFR (MDRD) Amer 118 mL/min >60 [facility] Comment on above: GFR Calc Estimated GFR (MDRD) Non-Af Amer 98 mL/min >60 [facility] Comment on above: Non- GFR Calc Levetiracetam (Keppra) Level 25.5 ug/mL 10.0-40.0 [facility] Comment on above: Performed at: [facility] [employer] [facility] [id number] Director: Alpesh Vázquez MD, Phone: [phone] RBC Auto (Bld) [#/Vol]Ordere d By: Carlos Cavazos on 07-13-2023 RBC (Bld) [#/Vol] 4.90 10*6/uL 4.6-6.2 [facility] Serum or plasma calcium oral urement (mass/volume)Ordered By: Carlos Cavazos on 07-13-2023 Calcium [Mass/Vol] 9.1 mg/dL 8.5-10.1 [facility] Serum or plasma creatinine m easurement (mass/volume)Ordered By: Carlos Cavazos on 07-13-2023 Creatinine [Mass/Vol] 0.82 mg/dL 0.70-1.30 [facility] Comment on above: The validity of the calculated GFR & GFRAA in patients over 70 years has not been determined. Clinical correlation is essential. Serum or plasma urea nitroge n measurement (mass/volume)Ordered By: Carlos Cavazos on 07-13-2023 Urea nitrogen [Mass/Vol] 18 mg/dL 7-18 [facility] Thin prep Papanicolaou smear with manual screeningOrdered By: Carlos Cavazos on 07-13-2023 Thin prep Papanicolaou smear with manual screening 6 5-15 [facility] No Panel InformationOrdered By: Carlos Cavazos on 07-12-2023 Valproic Acid (Depakene) Level < 3 ug/mL 50-100 [facility] Laboratory - CoagulationOrde red By: Carlos Cavazos on 07-05-2023 INR Coag (Bld) [Relative time] 2.4 {INR} [facility] PT Coag (PPP) [Time] 26.3 s 11.7-14.9 [facility] Laboratory - CoagulationOrde red By: Carlos Cavazos on 07-02-2023 INR Coag (Bld) [Relative time] 1.5 {INR} [facility] PT Coag (PPP) [Time] 18.5 s 11.7-14.9 [facility] Laboratory - CoagulationOrde red By: Carlos Cavazos on 06-28-2023 INR Coag (Bld) [Relative time] 1.7 {INR} [facility] PT Coag (PPP) [Time] 20.5 s 11.7-14.9 [facility] 36on 06-25-[address] [place] [address] called in stating appt scheduled 07/10/23 Guy has to be made further out, pt being transported by cot. Changed appt to 08/13/23 per [facility] only avail time for transport, first avail with DR Buck at 10:00 AM. [facility] Laboratory - CoagulationOrde red By: Carlos Cavazos on 06-25-2023 INR Coag (Bld) [Relative time] 3.8 {INR} [facility] PT Coag (PPP) [Time] 38.2 s 11.7-14.9 [facility] Laboratory - CoagulationOrde red By: Carlos Cavazos on 06-21-2023 INR Coag (Bld) [Relative time] 3.2 {INR} [facility] PT Coag (PPP) [Time] 32.9 s 11.7-14.9 [facility] No Panel InformationOrdered By: Carlos Cavazos on 06-13-2023 Valproic Acid (Depakene) Level < 3 ug/mL 50-100 [facility] - CoagulationOrde red By: Carlos Cavazos on 06-06-2023 PT Coag (PPP) [Time] 30.5 s 11.7-14.9 [facility] Platelet poor plasma interna tional normalized ratio (INR)Ordered By: Carlos Cavazos on 06-06-2023 INR Coag (PPP) [Relative time] 2.9 {INR} [facility] International normalized rat io (INR) calculationOrdered By: Carlos Cavazos on 05-23-2023 INR Coag (PPP) [Relative time] 2.6 {INR} [facility] - CoagulationOrde red By: Carlos Cavazos on 05-23-2023 PT Coag (PPP) [Time] 27.7 s 11.7-14.9 [facility] - CoagulationOrde red By: Carlos Cavazos on 05-09-2023 PT Coag (PPP) [Time] 24.1 s 11.7-14.9 [facility] Whole blood international no rmalized ratio (INR)Ordered By: Carlos Cavazos on 05-09-2023 INR Coag (Bld) [Relative time] 2.1 {INR} [facility] - CoagulationOrde red By: Carlos Cavazos on 04-23-2023 PT Coag (PPP) [Time] 26.4 s 11.7-14.9 [facility] Whole blood international no rmalized ratio (INR)Ordered By: Carlos Cavazos on 04-23-2023 INR Coag (Bld) [Relative time] 2.4 {INR} [facility] INR in Blood by Coagulation assayOrdered By: Carlos Cavazos on 04-09-2023 INR Coag (Bld) [Relative time] 2.1 {INR} [facility] - CoagulationOrde red By: Carlos Cavazos on 04-09-2023 PT Coag (PPP) [Time] 23.9 s 11.7-14.9 [facility] INR in Blood by Coagulation assayOrdered By: Carlos Cavazos on 04-02-2023 INR Coag (Bld) [Relative time] 2.2 {INR} [facility] - CoagulationOrde red By: Carlos Cavazos on 04-02-2023 PT Coag (PPP) [Time] 24.5 s 11.7-14.9 [facility] INR in Blood by Coagulation assayOrdered By: Carlos Cavazos on 03-26-2023 INR Coag (Bld) [Relative time] 1.7 {INR} [facility] - CoagulationOrde red By: Carlos Cavazos on 03-26-2023 PT Coag (PPP) [Time] 19.9 s 11.7-14.9 [facility] INR in Blood by Coagulation assayOrdered By: Carlos Cavazos on 03-22-2023 INR Coag (Bld) [Relative time] 1.3 {INR} [facility] - CoagulationOrde red By: Carlos Cavazos on 03-22-2023 PT Coag (PPP) [Time] 16.4 s 11.7-14.9 [facility] INR in Blood by Coagulation assayOrdered By: Carlos Cavazos on 03-08-2023 INR Coag (Bld) [Relative time] 2.0 {INR} [facility] - CoagulationOrde red By: Carlos Cavazos on 03-08-2023 PT Coag (PPP) [Time] 22.5 s 11.7-14.9 [facility] Laboratory - CoagulationOrde red By: Carlos Cavazos on 02-22-2023 INR Coag (Bld) [Relative time] 2.2 {INR} [facility] Comment on above: Critical Value > 4.0 Whole blood prothrombin time Ordered By: Carlos Cavazos on 02-22-2023 PT Coag (Bld) [Time] 24.0 s 11.7-14.9 [facility] INR in Blood by Coagulation assayOrdered By: Cliff Bruner on 02-15-2023 INR Coag (Bld) [Relative time] 2.0 {INR} [facility] - CoagulationOrde red By: Cliff Bruner on 02-15-2023 PT Coag (PPP) [Time] 22.8 s 11.7-14.9 [facility] INR in Blood by Coagulation assayOrdered By: Carlos Cavazos on 02-08-2023 INR Coag (Bld) [Relative time] 2.1 {INR} [facility] - CoagulationOrde red By: Carlos Cavazos on 02-08-2023 PT Coag (PPP) [Time] 23.5 s 11.7-14.9 [facility] INR in Blood by Coagulation assayOrdered By: Carlos Cavazos on 01-31-2023 INR Coag (Bld) [Relative time] 2.0 {INR} [facility] - CoagulationOrde red By: Carlos Cavazos on 01-31-2023 PT Coag (PPP) [Time] 22.4 s 11.7-14.9 [facility] - CoagulationOrde red By: Carlos Cavazos on 01-29-2023 INR Coag (Bld) [Relative time] 1.8 {INR} [facility] Comment on above: Critical Value > 4.0 Whole blood prothrombin time Ordered By: Carlos Cavazos on 01-29-2023 PT Coag (Bld) [Time] 19.9 s 11.7-14.9 [facility] INR in Blood by Coagulation assayOrdered By: Carlos Cavazos on 01-26-2023 INR Coag (Bld) [Relative time] 1.5 {INR} [facility] - CoagulationOrde red By: Carlos Cavazos on 01-26-2023 PT Coag (PPP) [Time] 18.3 s 11.7-14.9 [facility] INR in Blood by Coagulation assayOrdered By: Carlos Cavazos on 01-24-2023 INR Coag (Bld) [Relative time] 1.3 {INR} [facility] - CoagulationOrde red By: Carlos Cavazos on 01-24-2023 PT Coag (PPP) [Time] 16.2 s 11.7-14.9 [facility] Basophil percentageOrdered B y: Carlos Cavazos on 01-22-2023 Basophil percentage 0 SEEN /hpf 0-5 [facility] Bilirubin Test strip Ql (U)O rdered By: Carlos Cavazos on 01-22-2023 Bilirubin Ql (U) Negative Negative [facility] Calcium oxalate crystals det ection in urine sediment by light microscopyOrdered By: Carlos Cavazos on 01-22-2023 Calcium oxalate crystals LM Ql (Urine sed) 1+ /hpf [facility] Culture, urineOrdered By: Sharif Crouch on 01-22-2023 Bacteria identified Cx Nom (U) Positive [facility] Ketones Test strip Ql (U)Ord ered By: Carlos Cavazos on 01-22-2023 Ketones Ql (U) Negative Negative [facility] Mucus LM Ql (Urine sed)Order ed By: Carlos Cavazos on 01-22-2023 Mucus Ql (Urine sed) 1+ /hpf [facility] Nitrite Test strip Ql (U)Ord ered By: Carlos Cavazos on 01-22-2023 Nitrite Ql (U) Negative Negative [facility] Protein Test strip Ql (U)Ord ered By: Carlos Cavazos on 01-22-2023 Protein Ql (U) Negative Negative [facility] Squamous epithelial cells de tection in urine sediment by light microscopyOrdered By: Carlos Cavazos on 01-22-2023 Epithelial cells.squamous LM Ql (Urine sed) 0 SEEN /hpf 0-5 [facility] Urine blood detectionOrdered By: Carlos Cavazos on 01-22-2023 RBC Ql (U) Negative Negative [facility] RBC Ql (U) 0 SEEN /hpf 0-5 [facility] Urine clarityOrdered By: Ted Cavazos on 01-22-2023 Clarity (U) Sl. Cloudy Clear [facility] Urine color determinationOrd ered By: Carlos Cavazos on 01-22-2023 Color (U) Yellow Yellow [facility] Urine glucose detectionOrder ed By: Carlos Cavazos on 01-22-2023 Glucose Ql (U) Normal mg/dl Normal [facility] Urine leukocyte esterase det ection by dipstickOrdered By: Carlos Cavazos on 01-22-2023 Leukocyte esterase Test strip Ql (U) Negative Negative [facility] Urine pHOrdered By: Carlos flores on 01-22-2023 pH (U) 5.0 [pH] 5.0 - 8.0 [facility] Urine sediment bacteria coun t by microscopy (number/high power field)Ordered By: Carlso Cavazos on 01-22-2023 Bacteria LM.HPF (Urine sed) [#/Area] 2 /[HPF] None Seen [facility] Urine specific gravity measu rementOrdered By: Carlos Cavazos on 01-22-2023 Specific gravity (U) [Rel density] 1.025 1.002-1.030 [facility] Urobilinogen Auto test strip Ql (U)Ordered By: Carlos Cavazos on 01-22-2023 Urobilinogen Ql (U) Normal mg/dl Normal [facility] INR in Blood by Coagulation assayOrdered By: Carlos Cavazos on 01-10-2023 INR Coag (Bld) [Relative time] 2.0 {INR} [facility] - CoagulationOrde red By: Carlos Cavazos on 01-10-2023 PT Coag (PPP) [Time] 22.6 s 11.7-14.9 [facility] INR in Blood by Coagulation assayOrdered By: Carlos Cavazos on 12-27-2022 INR Coag (Bld) [Relative time] 2.1 {INR} [facility] - CoagulationOrde red By: Carlos Cavazos on 12-27-2022 PT Coag (PPP) [Time] 24.1 s 11.7-14.9 [facility] INR in Blood by Coagulation assayOrdered By: Carlos Cavazos on 12-21-2022 INR Coag (Bld) [Relative time] 2.4 {INR} [facility] - CoagulationOrde red By: Carlos Cavazos on 12-21-2022 PT Coag (PPP) [Time] 26.7 s 11.7-14.9 [facility] Laboratory - CoagulationOrde red By: Carlos Cavazos on 12-14-2022 INR Coag (Bld) [Relative time] 2.3 {INR} [facility] Comment on above: Critical Value > 4.0 Whole blood prothrombin time Ordered By: Carlos Cavazos on 12-14-2022 PT Coag (Bld) [Time] 25.2 s 11.7-14.9 [facility] Laboratory - CoagulationOrde red By: Carlos Cavazos on 12-07-2022 INR Coag (Bld) [Relative time] 2.5 {INR} [facility] Comment on above: Critical Value > 4.0 Whole blood prothrombin time Ordered By: Carlos Cavazos on 12-07-2022 PT Coag (Bld) [Time] 26.9 s 11.7-14.9 [facility] Amorphous sediment detection in urine sediment by light microscopyOrdered By: Carlos Cavazos on 11-24-2022 Amorphous sediment LM Ql (Urine sed) 1+ [facility] Basophil percentageOrdered B y: Carlos Cavazos on 11-24-2022 Basophil percentage 0 SEEN /hpf 0-5 [facility] Bilirubin [Mass/Vol] 0.30 mg/dL 0.20-1.00 [facility] Comment on above: For patients on eltr ombopag therapy, use of [employer] [place] TBIL is not recommended. Chloride [Moles/Vol] 107 mmol/L 98-107 [facility] Glucose [Mass/Vol] 95 mg/dL 74-106 [facility] Potassium [Moles/Vol] 4.2 mmol/L 3.5-5.1 [facility] Protein [Mass/Vol] 6.9 g/dL 6.4-8.2 [facility] Sodium [Moles/Vol] 138 mmol/L 136-145 [facility] WBC (Bld) [#/Vol] 10.4 10*3/uL 4.4-11.0 [facility] Bilirubin Test strip Ql (U)O rdered By: Carlos Cavazos on 11-24-2022 Bilirubin Ql (U) Negative Negative [facility] Blood erythrocytes count (nu mber/volume)Ordered By: Carlos Cavazos on 11-24-2022 RBC (Bld) [#/Vol] 4.44 10*6/uL 4.6-6.2 [facility] Blood hemoglobin measurement (mass/volume)Ordered By: Carlos Cavazos on 11-24-2022 Hemoglobin (Bld) [Mass/Vol] 11.8 g/dL 13.0-16.5 [facility] Blood platelet mean volumeOr dered By: Carlos Cavazos on 11-24-2022 Platelet mean volume (Bld) [Entitic vol] 9.7 fL 6.2-12.0 [facility] Calcium oxalate crystals det ection in urine sediment by light microscopyOrdered By: Carlos Cavazos on 11-24-2022 Calcium oxalate crystals LM Ql (Urine sed) RARE /hpf [facility] Culture, urineOrdered By: Sharif Crouch on 11-24-2022 Bacteria identified Cx Nom (U) Positive [facility] Determination of erythrocyte mean corpuscular volume (MCV)Ordered By: Carlos Cavazos on 11-24-2022 MCV (RBC) [Entitic vol] 84.7 fL 80-94 [facility] Hematocrit Auto (Bld) [Volum e fraction]Ordered By: Carlos Cavazos on 11-24-2022 Hematocrit (Bld) [Volume fraction] 37.6 % 40-54 [facility] Ketones Test strip Ql (U)Ord ered By: Carlos Cavazos on 11-24-2022 Ketones Ql (U) Negative Negative [facility] Laboratory - Chemistry and C hemistry - challengeOrdered By: Carlos Cavazos on 11-24-2022 ALP [Catalytic activity/Vol] 103 U/L 45-117 [facility] ALT [Catalytic activity/Vol] 14 U/L 16-61 [facility] CO2 [Moles/Vol] 26.0 mmol/L 21.0-32.0 [facility] Globulin (S) [Mass/Vol] 4.0 g/dL 2.2-4.2 [facility] Urea nitrogen/Creatinine [Mass ratio] 24.1 mg/mg 10-20 [facility] Laboratory - Hematology and Cell countsOrdered By: Carlos Cavazos on 11-24-2022 Erythrocyte distribution width (RBC) [Entitic vol] 49.4 fL 35.1-43.9 [facility] Erythrocyte distribution width (RBC) [Ratio] 16.0 % 11.6-14.6 [facility] MCH (RBC) [Entitic mass] 26.6 pg 27.0-32.0 [facility] MCHC Auto (RBC) [Mass/Vol]Or dered By: Carlos Cavazos on 11-24-2022 MCHC (RBC) [Mass/Vol] 31.4 g/dL 32-36 [facility] Mucus LM Ql (Urine sed)Order ed By: Carlos Cavazos on 11-24-2022 Mucus Ql (Urine sed) 0 SEEN /hpf [facility] Nitrite Test strip Ql (U)Ord ered By: Carlos Cavazos on 11-24-2022 Nitrite Ql (U) Negative Negative [facility] No Panel InformationOrdered By: Carlos Cavazos on 11-24-2022 Estimated GFR (MDRD) Amer 118 mL/min >60 [facility] Comment on above: GFR Calc Estimated GFR (MDRD) Non-Af Amer 97 mL/min >60 [facility] Comment on above: Non- GFR Calc Platelets bldOrdered By: Pet er Kenny on 11-24-2022 Platelets (Bld) [#/Vol] 309 10*3/uL 150-450 [facility] Protein Test strip Ql (U)Ord ered By: Carlos Cavazos on 11-24-2022 Protein Ql (U) Negative Negative [facility] Serum or plasma albumin oral urement (mass/volume)Ordered By: Carlos Cavazos on 11-24-2022 Albumin [Mass/Vol] 2.9 g/dL 3.2-5.0 [facility] Serum or plasma albumin/glob ulin mass ratioOrdered By: Carlos Cavazos on 11-24-2022 Albumin/Globulin [Mass ratio] 0.7 {ratio} 0.9-2.4 [facility] Serum or plasma calcium oral urement (mass/volume)Ordered By: Carlos Cavazos on 11-24-2022 Calcium [Mass/Vol] 8.7 mg/dL 8.5-10.1 [facility] Serum or plasma creatinine m easurement (mass/volume)Ordered By: Carlos Cavazos on 11-24-2022 Creatinine [Mass/Vol] 0.83 mg/dL 0.70-1.30 [facility] Comment on above: The validity of the calculated GFR & GFRAA in patients over 70 years has not been determined. Clinical correlation is essential. Serum or plasma urea nitroge n measurement (mass/volume)Ordered By: Carlos Cavazos on 11-24-2022 Urea nitrogen [Mass/Vol] 20 mg/dL 7-18 [facility] Squamous epithelial cells de tection in urine sediment by light microscopyOrdered By: Carlos Cavazos on 11-24-2022 Epithelial cells.squamous LM Ql (Urine sed) 0 SEEN /hpf 0-5 [facility] Thin prep Papanicolaou smear with manual screeningOrdered By: Carlos Cavazos on 11-24-2022 Thin prep Papanicolaou smear with manual screening 10 U/L 15-37 [facility] Thin prep Papanicolaou smear with manual screening 5 5-15 [facility] Urine blood detectionOrdered By: Carlos Cavazos on 11-24-2022 RBC Ql (U) Negative Negative [facility] RBC Ql (U) 0 SEEN /hpf 0-5 [facility] Urine clarityOrdered By: Ted Cavazos on 11-24-2022 Clarity (U) Clear Clear [facility] Urine color determinationOrd ered By: Carlos Cavazos on 11-24-2022 Color (U) Yellow Yellow [facility] Urine glucose detectionOrder ed By: Carlos Cavazos on 11-24-2022 Glucose Ql (U) Normal mg/dl Normal [facility] Urine leukocyte esterase det ection by dipstickOrdered By: Carlos Cavazos on 11-24-2022 Leukocyte esterase Test strip Ql (U) Negative Negative [facility] Urine pHOrdered By: Carlos flores on 11-24-2022 pH (U) 7.0 [pH] 5.0 - 8.0 [facility] Urine sediment bacteria coun t by microscopy (number/high power field)Ordered By: Carlos Cavazos on 11-24-2022 Bacteria LM.HPF (Urine sed) [#/Area] 0 /[HPF] None Seen [facility] Urine specific gravity measu rementOrdered By: Carlos Cavazos on 11-24-2022 Specific gravity (U) [Rel density] 1.010 1.002-1.030 [facility] Urobilinogen Auto test strip Ql (U)Ordered By: Carlos Cavazos on 11-24-2022 Urobilinogen Ql (U) Normal mg/dl Normal [facility] - CoagulationOrde red By: Carlos Cavazos on 11-23-2022 INR Coag (Bld) [Relative time] 2.2 {INR} [facility] Comment on above: Critical Value > 4.0 Whole blood prothrombin time Ordered By: Carlos Cavazos on 11-23-2022 PT Coag (Bld) [Time] 24.5 s 11.7-14.9 [facility] Basophil percentageOrdered B y: Carlos Cavazos on 11-22-2022 Chloride [Moles/Vol] 105 mmol/L 98-107 [facility] Glucose [Mass/Vol] 91 mg/dL 74-106 [facility] Potassium [Moles/Vol] 4.1 mmol/L 3.5-5.1 [facility] Sodium [Moles/Vol] 138 mmol/L 136-145 [facility] WBC (Bld) [#/Vol] 12.0 10*3/uL 4.4-11.0 [facility] Blood erythrocytes count (nu mber/volume)Ordered By: Carlos Cavazos on 11-22-2022 RBC (Bld) [#/Vol] 4.65 10*6/uL 4.6-6.2 [facility] Blood hemoglobin measurement (mass/volume)Ordered By: Carlos Cavazos on 11-22-2022 Hemoglobin (Bld) [Mass/Vol] 12.4 g/dL 13.0-16.5 [facility] Blood platelet mean volumeOr dered By: Carlos Cavazos on 11-22-2022 Platelet mean volume (Bld) [Entitic vol] 10.3 fL 6.2-12.0 [facility] Determination of erythrocyte mean corpuscular volume (MCV)Ordered By: Carlos Cavazos on 11-22-2022 MCV (RBC) [Entitic vol] 86.0 fL 80-94 [facility] Hematocrit Auto (Bld) [Volum e fraction]Ordered By: Carlos Cavazos on 11-22-2022 Hematocrit (Bld) [Volume fraction] 40.0 % 40-54 [facility] Laboratory - Chemistry and C hemistry - challengeOrdered By: Carlos Cavazos on 11-22-2022 CO2 [Moles/Vol] 25.0 mmol/L 21.0-32.0 [facility] Urea nitrogen/Creatinine [Mass ratio] 23.6 mg/mg 10-20 [facility] Laboratory - Hematology and Cell countsOrdered By: Carlos Cavazos on 11-22-2022 Erythrocyte distribution width (RBC) [Entitic vol] 50.0 fL 35.1-43.9 [facility] Erythrocyte distribution width (RBC) [Ratio] 15.9 % 11.6-14.6 [facility] MCH (RBC) [Entitic mass] 26.7 pg 27.0-32.0 [facility] MCHC Auto (RBC) [Mass/Vol]Or dered By: Carlos Cavazos on 11-22-2022 MCHC (RBC) [Mass/Vol] 31.0 g/dL 32-36 [facility] No Panel InformationOrdered By: Carlos Cavazos on 11-22-2022 Estimated GFR (MDRD) Amer 115 mL/min >60 [facility] Comment on above: GFR Calc Estimated GFR (MDRD) Non-Af Amer 95 mL/min >60 [facility] Comment on above: Non- GFR Calc Platelets bldOrdered By: Pet noe Cavazos on 11-22-2022 Platelets (Bld) [#/Vol] 320 10*3/uL 150-450 [facility] Serum or plasma calcium oral urement (mass/volume)Ordered By: Carlos Cavazos on 11-22-2022 Calcium [Mass/Vol] 8.7 mg/dL 8.5-10.1 [facility] Serum or plasma creatinine m easurement (mass/volume)Ordered By: Carlos Cavazos on 11-22-2022 Creatinine [Mass/Vol] 0.85 mg/dL 0.70-1.30 [facility] Comment on above: The validity of the calculated GFR & GFRAA in patients over 70 years has not been determined. Clinical correlation is essential. Serum or plasma urea nitroge n measurement (mass/volume)Ordered By: Carlos Cavazos on 11-22-2022 Urea nitrogen [Mass/Vol] 20 mg/dL 7-18 [facility] Thin prep Papanicolaou smear with manual screeningOrdered By: Carlos Cavazos on 11-22-2022 Thin prep Papanicolaou smear with manual screening 8 5-15 [facility] Laboratory - CoagulationOrde red By: Carlos Cavazos on 11-09-2022 INR Coag (Bld) [Relative time] 2.1 {INR} [facility] Comment on above: Critical Value > 4.0 Whole blood prothrombin time Ordered By: Carlos Cavazos on 11-09-2022 PT Coag (Bld) [Time] 22.6 s 11.7-14.9 [facility] Laboratory - CoagulationOrde red By: Carlos Cavazos on 10-26-2022 INR Coag (Bld) [Relative time] 2.6 {INR} [facility] Comment on above: Critical Value > 4.0 Whole blood prothrombin time Ordered By: Carlos Cavazos on 10-26-2022 PT Coag (Bld) [Time] 28.5 s 11.7-14.9 [facility] Laboratory - CoagulationOrde red By: Carlos Cavazos on 10-12-2022 INR Coag (Bld) [Relative time] 2.4 {INR} [facility] Comment on above: Critical Value > 4.0 Whole blood prothrombin time Ordered By: Carlos Cavazos on 10-12-2022 PT Coag (Bld) [Time] 26.4 s 11.7-14.9 [facility] Laboratory - CoagulationOrde red By: Carlos Cavazos on 10-05-2022 INR Coag (Bld) [Relative time] 2.6 {INR} [facility] Comment on above: Critical Value > 4.0 Whole blood prothrombin time Ordered By: Carlos Cavazos on 10-05-2022 PT Coag (Bld) [Time] 28.0 s 11.7-14.9 [facility] Laboratory - CoagulationOrde red By: Carlos Cavazos on 09-28-2022 INR Coag (Bld) [Relative time] 2.7 {INR} [facility] Comment on above: Critical Value > 4.0 Whole blood prothrombin time Ordered By: Carlos Cavazos on 09-28-2022 PT Coag (Bld) [Time] 28.9 s 11.7-14.9 [facility] Laboratory - CoagulationOrde red By: Carlos Cavazos on 09-14-2022 INR Coag (Bld) [Relative time] 2.5 {INR} [facility] Comment on above: Critical Value > 4.0 Whole blood prothrombin time Ordered By: Carlos Cavazos on 09-14-2022 PT Coag (Bld) [Time] 27.4 s 11.7-14.9 [facility] - CoagulationOrde red By: Carlos Cavazos on 08-31-2022 INR Coag (Bld) [Relative time] 2.3 {INR} [facility] Comment on above: Critical Value > 4.0 Whole blood prothrombin time Ordered By: Carlos Cavazos on 08-31-2022 PT Coag (Bld) [Time] 25.4 s 11.7-14.9 [facility] Basophil percentageOrdered B y: Carlos Cavazos on 08-23-2022 Chloride [Moles/Vol] 108 mmol/L 98-107 [facility] Glucose [Mass/Vol] 86 mg/dL 74-106 [facility] Potassium [Moles/Vol] 4.3 mmol/L 3.5-5.1 [facility] Sodium [Moles/Vol] 136 mmol/L 136-145 [facility] WBC (Bld) [#/Vol] 10.0 10*3/uL 4.4-11.0 [facility] Blood erythrocytes count (nu mber/volume)Ordered By: Carlos Cavazos on 08-23-2022 RBC (Bld) [#/Vol] 4.77 10*6/uL 4.6-6.2 [facility] Blood hemoglobin measurement (mass/volume)Ordered By: Carlos Cavazos on 08-23-2022 Hemoglobin (Bld) [Mass/Vol] 12.5 g/dL 13.0-16.5 [facility] Blood platelet mean volumeOr dered By: Carlos Cavazos on 08-23-2022 Platelet mean volume (Bld) [Entitic vol] 11.0 fL 6.2-12.0 [facility] Determination of erythrocyte mean corpuscular volume (MCV)Ordered By: Carlos Cavazos on 08-23-2022 MCV (RBC) [Entitic vol] 84.3 fL 80-94 [facility] Hematocrit Auto (Bld) [Volum e fraction]Ordered By: Carlos Cavazos on 08-23-2022 Hematocrit (Bld) [Volume fraction] 40.2 % 40-54 [facility] Laboratory - Chemistry and C hemistry - challengeOrdered By: Carlos Cavazos on 08-23-2022 CO2 [Moles/Vol] 24.0 mmol/L 21.0-32.0 [facility] Urea nitrogen/Creatinine [Mass ratio] 22.8 mg/mg 10- [facility] - Hematology and Cell countsOrdered By: Carlos Cavazos on 08-23-2022 Erythrocyte distribution width (RBC) [Entitic vol] 49.3 fL 35.1-43.9 [facility] Erythrocyte distribution width (RBC) [Ratio] 16.0 % 11.6-14.6 [facility] MCH (RBC) [Entitic mass] 26.2 pg 27.0-32.0 [facility] MCHC Auto (RBC) [Mass/Vol]Or dered By: Carlos Cavazos on 08-23-2022 MCHC (RBC) [Mass/Vol] 31.1 g/dL 32-36 [facility] No Panel InformationOrdered By: Carlos Cavazos on 08-23-2022 Estimated GFR (MDRD) Amer 134 mL/min >60 [facility] Comment on above: GFR Calc Estimated GFR (MDRD) Non-Af Amer 110 mL/min >60 [facility] Comment on above: Non- GFR Calc Platelets bldOrdered By: Ted Cavazos on 08-23-2022 Platelets (Bld) [#/Vol] 268 10*3/uL 150-450 [facility] Serum or plasma calcium oral urement (mass/volume)Ordered By: Carlos Cavazos on 08-23-2022 Calcium [Mass/Vol] 9.1 mg/dL 8.5-10.1 [facility] Serum or plasma creatinine m easurement (mass/volume)Ordered By: Carlos Cavazos on 08-23-2022 Creatinine [Mass/Vol] 0.74 mg/dL 0.70-1.30 [facility] Comment on above: The validity of the calculated GFR & GFRAA in patients over 70 years has not been determined. Clinical correlation is essential. Serum or plasma urea nitroge n measurement (mass/volume)Ordered By: Carlos Cavazos on 08-23-2022 Urea nitrogen [Mass/Vol] 17 mg/dL - [facility] Thin prep Papanicolaou smear with manual screeningOrdered By: Carlos Cavazos on 08-23-2022 Thin prep Papanicolaou smear with manual screening 4 5-15 [facility] - CoagulationOrde red By: Carlos Cavazos on 08-17-2022 INR Coag (Bld) [Relative time] 2.8 {INR} [facility] Comment on above: Critical Value > 4.0 Whole blood prothrombin time Ordered By: Carlos Cavazos on 08-17-2022 PT Coag (Bld) [Time] 29.6 s 11.7-14.9 [facility] Laboratory - CoagulationOrde red By: Carlos aCvazos on 08-14-2022 INR Coag (Bld) [Relative time] 3.9 {INR} [facility] Comment on above: Critical Value > 4.0 Whole blood prothrombin time Ordered By: Carlos Cavazos on 08-14-2022 PT Coag (Bld) [Time] 40.6 s 11.7-14.9 [facility] Laboratory - CoagulationOrde red By: Carlos Cavazos on 07-31-2022 INR Coag (Bld) [Relative time] 2.5 {INR} [facility] Comment on above: Critical Value > 4.0 Whole blood prothrombin time Ordered By: Carlos Cavazos on 07-31-2022 PT Coag (Bld) [Time] 26.8 s 11.7-14.9 [facility] INR in Blood by Coagulation assayOrdered By: Carlos Cavazos on 07-24-2022 INR Coag (Bld) [Relative time] 2.3 {INR} [facility] - CoagulationOrde red By: Carlos Cavazos on 07-24-2022 PT Coag (PPP) [Time] 24.7 s 11.7-14.9 [facility] - CoagulationOrde red By: Carlos Cavazos on 07-20-2022 INR Coag (Bld) [Relative time] 1.9 {INR} [facility] Comment on above: Critical Value > 4.0 Whole blood prothrombin time Ordered By: Carlos Cavazos on 07-20-2022 PT Coag (Bld) [Time] 20.6 s 11.7-14.9 [facility] - CoagulationOrde red By: Carlos Cavazos on 07-17-2022 INR Coag (Bld) [Relative time] 1.3 {INR} [facility] Comment on above: Critical Value > 4.0 Whole blood prothrombin time Ordered By: Carlos Cavazos on 07-17-2022 PT Coag (Bld) [Time] 15.9 s 11.7-14.9 [facility] Basophil percentageOrdered B y: Carlos Cavazos on 07-11-2022 Chloride [Moles/Vol] 105 mmol/L 98-107 [facility] Glucose [Mass/Vol] 97 mg/dL 74-106 [facility] Potassium [Moles/Vol] 3.9 mmol/L 3.5-5.1 [facility] Sodium [Moles/Vol] 140 mmol/L 136-145 [facility] WBC (Bld) [#/Vol] 9.4 10*3/uL 4.4-11.0 [facility] Blood erythrocytes count (nu mber/volume)Ordered By: Carlos Cavazos on 07-11-2022 RBC (Bld) [#/Vol] 4.66 10*6/uL 4.6-6.2 [facility] Blood hemoglobin measurement (mass/volume)Ordered By: Carlos Cavazos on 07-11-2022 Hemoglobin (Bld) [Mass/Vol] 12.0 g/dL 13.0-16.5 [facility] Blood platelet mean volumeOr dered By: Carlos Cavazos on 07-11-2022 Platelet mean volume (Bld) [Entitic vol] 10.4 fL 6.2-12.0 [facility] Determination of erythrocyte mean corpuscular volume (MCV)Ordered By: Carlos Cavazos on 07-11-2022 MCV (RBC) [Entitic vol] 83.7 fL 80-94 [facility] Hematocrit Auto (Bld) [Volum e fraction]Ordered By: Carlos Cavazos on 07-11-2022 Hematocrit (Bld) [Volume fraction] 39.0 % 40-54 [facility] Laboratory - Chemistry and C hemistry - challengeOrdered By: Carlos Cavazos on 07-11-2022 CO2 [Moles/Vol] 28.0 mmol/L 21.0-32.0 [facility] Urea nitrogen/Creatinine [Mass ratio] 23.0 mg/mg 10-20 [facility] Laboratory - Hematology and Cell countsOrdered By: Carlos Cavazos on 07-11-2022 Erythrocyte distribution width (RBC) [Entitic vol] 51.0 fL 35.1-43.9 [facility] Erythrocyte distribution width (RBC) [Ratio] 16.8 % 11.6-14.6 [facility] MCH (RBC) [Entitic mass] 25.8 pg 27.0-32.0 [facility] MCHC Auto (RBC) [Mass/Vol]Or dered By: Carlos Cavazos on 07-11-2022 MCHC (RBC) [Mass/Vol] 30.8 g/dL 32-36 [facility] No Panel InformationOrdered By: Carlos Cavazos on 07-11-2022 Estimated GFR (MDRD) Amer 126 mL/min >60 [facility] Comment on above: GFR Calc Estimated GFR (MDRD) Non-Af Amer 104 mL/min >60 [facility] Comment on above: Non- GFR Calc Platelets bldOrdered By: Ted Cavazos on 07-11-2022 Platelets (Bld) [#/Vol] 291 10*3/uL 150-450 [facility] Serum or plasma calcium oral urement (mass/volume)Ordered By: Carlos Cavazos on 07-11-2022 Calcium [Mass/Vol] 9.2 mg/dL 8.5-10.1 [facility] Serum or plasma creatinine m easurement (mass/volume)Ordered By: Carlos Cavazos on 07-11-2022 Creatinine [Mass/Vol] 0.78 mg/dL 0.70-1.30 [facility] Comment on above: The validity of the calculated GFR & GFRAA in patients over 70 years has not been determined. Clinical correlation is essential. Serum or plasma urea nitroge n measurement (mass/volume)Ordered By: Carlos Cavazos on 07-11-2022 Urea nitrogen [Mass/Vol] 18 mg/dL 7-18 [facility] Thin prep Papanicolaou smear with manual screeningOrdered By: Carlos Cavazos on 07-11-2022 Thin prep Papanicolaou smear with manual screening 7 5-15 [facility] Laboratory - CoagulationOrde red By: Carlos Cavazos on 07-10-2022 INR Coag (Bld) [Relative time] 1.8 {INR} [facility] Comment on above: Critical Value > 4.0 Whole blood prothrombin time Ordered By: Carlos Cavazos on 07-10-2022 PT Coag (Bld) [Time] 21.0 s 11.7-14.9 [facility] Laboratory - CoagulationOrde red By: Carlos Cavazos on 07-03-2022 INR Coag (Bld) [Relative time] 1.9 {INR} [facility] Comment on above: Critical Value > 4.0 Whole blood prothrombin time Ordered By: Carlos Cavazos on 07-03-2022 PT Coag (Bld) [Time] 22.7 s 11.7-14.9 [facility] INR in Blood by Coagulation assayOrdered By: Carlos Cavazos on 06-27-2022 INR Coag (Bld) [Relative time] 2.9 {INR} [facility] - CoagulationOrde red By: Carlos Cavazos on 06-27-2022 PT Coag (PPP) [Time] 29.9 s 11.7-14.9 [facility] Laboratory - CoagulationOrde red By: Carlos Cavazos on 06-13-2022 INR Coag (Bld) [Relative time] 2.1 {INR} [facility] Comment on above: Critical Value > 4.0 Whole blood prothrombin time Ordered By: Carlos Cavaozs on 06-13-2022 PT Coag (Bld) [Time] 24.4 s 11.7-14.9 [facility] Laboratory - CoagulationOrde red By: Carlos Cavazos on 06-06-2022 INR Coag (Bld) [Relative time] 1.5 {INR} [facility] Comment on above: Critical Value > 4.0 Whole blood prothrombin time Ordered By: Carlos Cavazos on 06-06-2022 PT Coag (Bld) [Time] 18.4 s 11.7-14.9 [facility] Basophil percentageOrdered B y: Carlos Cavazos on 05-30-2022 Chloride [Moles/Vol] 105 mmol/L 98-107 [facility] Glucose [Mass/Vol] 95 mg/dL 74-106 [facility] Potassium [Moles/Vol] 3.9 mmol/L 3.5-5.1 [facility] Sodium [Moles/Vol] 140 mmol/L 136-145 [facility] WBC (Bld) [#/Vol] 7.6 10*3/uL 4.4-11.0 [facility] Blood erythrocytes count (nu mber/volume)Ordered By: Carlos Cavazos on 05-30-2022 RBC (Bld) [#/Vol] 4.79 10*6/uL 4.6-6.2 [facility] Blood hemoglobin measurement (mass/volume)Ordered By: Carlos Cavazos on 05-30-2022 Hemoglobin (Bld) [Mass/Vol] 12.1 g/dL 13.0-16.5 [facility] Blood platelet mean volumeOr dered By: Carlos Cavazos on 05-30-2022 Platelet mean volume (Bld) [Entitic vol] 10.4 fL 6.2-12.0 [facility] Determination of erythrocyte mean corpuscular volume (MCV)Ordered By: Carlos Cavazos on 05-30-2022 MCV (RBC) [Entitic vol] 82.5 fL 80-94 [facility] Hematocrit Auto (Bld) [Volum e fraction]Ordered By: Carlos Cavazos on 05-30-2022 Hematocrit (Bld) [Volume fraction] 39.5 % 40-54 [facility] INR in Blood by Coagulation assayOrdered By: Carlos Cavazos on 05-30-2022 INR Coag (Bld) [Relative time] 1.9 {INR} [facility] Laboratory - Chemistry and C hemistry - challengeOrdered By: Carlos Cavazso on 05-30-2022 CO2 [Moles/Vol] 27.0 mmol/L 21.0-32.0 [facility] Urea nitrogen/Creatinine [Mass ratio] 21.4 mg/mg 10-20 [facility] Laboratory - CoagulationOrde red By: Carlos Cavazos on 05-30-2022 PT Coag (PPP) [Time] 21.6 s 11.7-14.9 [facility] Laboratory - Hematology and Cell countsOrdered By: Carlos Cavazos on 05-30-2022 Erythrocyte distribution width (RBC) [Entitic vol] 48.8 fL 35.1-43.9 [facility] Erythrocyte distribution width (RBC) [Ratio] 16.2 % 11.6-14.6 [facility] MCH (RBC) [Entitic mass] 25.3 pg 27.0-32.0 [facility] MCHC Auto (RBC) [Mass/Vol]Or dered By: Carlos Cavazos on 05-30-2022 MCHC (RBC) [Mass/Vol] 30.6 g/dL 32-36 [facility] No Panel InformationOrdered By: Carlos Cavazos on 05-30-2022 Estimated GFR (MDRD) Amer 133 mL/min >60 [facility] Comment on above: GFR Calc Estimated GFR (MDRD) Non-Af Amer 110 mL/min >60 [facility] Comment on above: Non- GFR Calc Platelets bldOrdered By: Ted Cavazos on 05-30-2022 Platelets (Bld) [#/Vol] 308 10*3/uL 150-450 [facility] Serum or plasma calcium oral urement (mass/volume)Ordered By: Carlos Cavazos on 05-30-2022 Calcium [Mass/Vol] 9.1 mg/dL 8.5-10.1 [facility] Serum or plasma creatinine m easurement (mass/volume)Ordered By: Carlos Cavazos on 05-30-2022 Creatinine [Mass/Vol] 0.75 mg/dL 0.70-1.30 [facility] Comment on above: The validity of the calculated GFR & GFRAA in patients over 70 years has not been determined. Clinical correlation is essential. Serum or plasma urea nitroge n measurement (mass/volume)Ordered By: Carlos Cavazos on 05-30-2022 Urea nitrogen [Mass/Vol] 16 mg/dL 7-18 [facility] Thin prep Papanicolaou smear with manual screeningOrdered By: Carlos Cavazos on 05-30-2022 Thin prep Papanicolaou smear with manual screening 8 5-15 [facility] Laboratory - CoagulationOrde red By: Carlos Cavazos on 01-10-2023 INR Coag (Bld) [Relative time] 2.6 {INR} [facility] Comment on above: Critical Value > 4.0 Whole blood prothrombin time Ordered By: Carlos Cavazos on 05-16-2022 PT Coag (Bld) [Time] 29.9 s 11.7-14.9 [facility] Laboratory - CoagulationOrde red By: Carlos Cavazos on 05-02-2022 INR Coag (Bld) [Relative time] 2.0 {INR} [facility] Comment on above: Critical Value > 4.0 Whole blood prothrombin time Ordered By: Carlos Cavazos on 05-02-2022 PT Coag (Bld) [Time] 23.2 s 11.7-14.9 [facility] Laboratory - CoagulationOrde red By: Carlos Cavazos on 04-27-2022 INR Coag (Bld) [Relative time] 2.7 {INR} [facility] Comment on above: Critical Value > 4.0 Whole blood prothrombin time Ordered By: Carlos Cavazos on 04-27-2022 PT Coag (Bld) [Time] 31.1 s 11.7-14.9 [facility] Laboratory - CoagulationOrde red By: Carlos Cavazos on 04-26-2022 INR Coag (Bld) [Relative time] 2.8 {INR} [facility] Comment on above: Critical Value > 4.0 Whole blood prothrombin time Ordered By: Carlos Cavazos on 04-26-2022 PT Coag (Bld) [Time] 32.6 s 11.7-14.9 [facility] Laboratory - CoagulationOrde red By: Carlos Cavazos on 04-11-2022 INR Coag (Bld) [Relative time] 2.9 {INR} [facility] Comment on above: Critical Value > 4.0 Whole blood prothrombin time Ordered By: Carlos Cavazos on 04-11-2022 PT Coag (Bld) [Time] 32.8 s 11.7-14.9 [facility] Laboratory - CoagulationOrde red By: Carlos Cavazos on 03-28-2022 INR Coag (Bld) [Relative time] 2.1 {INR} [facility] Comment on above: Critical Value > 4.0 Whole blood prothrombin time Ordered By: Carlos Cavazos on 03-28-2022 PT Coag (Bld) [Time] 24.8 s 11.7-14.9 [facility] - CoagulationOrde red By: Carlos Cavazos on 03-23-2022 INR Coag (Bld) [Relative time] 1.7 {INR} [facility] Comment on above: Critical Value > 4.0 Whole blood prothrombin time Ordered By: Carlos Cavazos on 03-23-2022 PT Coag (Bld) [Time] 20.9 s 11.7-14.9 [facility] - CoagulationOrde red By: Carlos Cavazos on 03-16-2022 INR Coag (Bld) [Relative time] 1.7 {INR} [facility] Comment on above: Critical Value > 4.0 Whole blood prothrombin time Ordered By: Carlos Cavazos on 03-16-2022 PT Coag (Bld) [Time] 19.9 s 11.7-14.9 [facility] - CoagulationOrde red By: Carlos Cavazos on 03-09-2022 INR Coag (Bld) [Relative time] 1.8 {INR} [facility] Comment on above: Critical Value > 4.0 Whole blood prothrombin time Ordered By: Carlos Cavazos on 03-09-2022 PT Coag (Bld) [Time] 21.9 s 11.7-14.9 [facility] Laboratory - CoagulationOrde red By: Carlos Cavazos on 03-06-2022 INR Coag (Bld) [Relative time] 1.7 {INR} [facility] Comment on above: Critical Value > 4.0 Whole blood prothrombin time Ordered By: Carlos Cavazos on 03-06-2022 PT Coag (Bld) [Time] 20.0 s 11.7-14.9 [facility] CBC with Auto Differentialon 03-02-2022 [...] - 10.7 10*3/uL [facility] Test Performed by [facility], [address] [place] [id number] [facility] CT HEAD WO CONTRASTon 2021 Patient Name: ANDREW SIFUENTES Computed Tomography ACCESSION EXAM DATE/TIME PROCEDURE ORDERING PROVIDER [id number] 03/02/2022 13:[address] Head or Brain w/o [id number] -MUNGUIA LANETTE Contrast CPT code 41655 Reason For Exam (CT Head or Brain [...] tubes (parent active on the left for ROLL MACHINE OPERATOR shunting and disconnected on the right). 2. No definite evidence of acute infarction (MRI more sensitive), mass lesion, nor hemorrhage. Report Dictated on --- Final --- Dictated: 03/02/2022 1:35 pm Dictating Physician: MD GUTIERREZ WILLIAM Signed Date and Time: 03/02/2022 1:39 pm Signed by: MD GUTIERREZ WILLIAM Transcribed Date and Time: 03/02/2022 1:35 [facility] Anant Gutierrez MD - 03/02/2022 Patient Name: ANDREW SIFUENTES Computed Tomography ACCESSION EXAM DATE/TIME PROCEDURE ORDERING PROVIDER [id number] 03/02/2022 13:[address] Head or Brain w/o [id number] -MUNGUIA, LANETTE Contrast CPT code 53617 Reason For Exam (CT Head or Brain [...] tubes (parent active on the left for ROLL MACHINE OPERATOR shunting and disconnected on the right). [...] Tomography ACCESSION EXAM DATE/TIME PROCEDURE ORDERING PROVIDER [id number] 03/02/2022 13:[address] Head or Brain w/o [id number] -LANETTE MUNGUIA Contrast CPT code 44826 Reason For Exam (CT Head or Brain [...] tubes (parent active on the left for ROLL MACHINE OPERATOR shunting and disconnected on the right). 2. No definite evidence of acute infarction (MRI more sensitive), mass lesion, nor hemorrhage. Report Dictated on Final Dictated: 03/02/2022 1:35 pm Dictating Physician: MD GUTIERREZ WILLIAM Signed Date and Time: 03/02/2022 1:39 pm Signed by: MD GUTIERREZ WILLIAM Transcribed Date and Time: 03/02/2022 1:35 Normal [facility] Comp Metabolic Panelon 03-02 Calcium [Mass/Vol] 9.1 mg/dL Normal 8.4-10.4 [facility] Comment on above: Performed By: #### H BIMALF PT, CMP3 ####[facility] [employer] [id number], [place] ALP [Catalytic activity/Vol] 128 U/L High 38-126 [facility] Comment on above: Performed By: #### H TIERA PT, CMP3 ####[facility] [employer] [id number] [place], [place] ALT [Catalytic activity/Vol] 12 U/L Normal 0-49 [facility] Comment on above: Result Comment: The ALT test is performed by an updated assay method. Please note that the reference intervals have been changed and are now sex specific. Performed By: #### H EMDF PT, CMP3 ####[facility] [place] [address] Anion gap [Moles/Vol] 7 mmol/L Normal 3-[address] [facility] Comment on above: Performed By: #### H TIERA PT, CMP3 ####[facility] [place] [address] AST [Catalytic activity/Vol] 24 U/L Normal 15-46 [facility] Comment on above: Performed By: #### H TIERA PT, CMP3 ####[place] [address] [place] [address] Bilirubin [Mass/Vol] 0.4 mg/dL Normal 0.2-1.3 [facility] Comment on above: Performed By: #### H TIERA PT, CMP3 ####[place] [address] [place] [address] CO2 [Moles/Vol] 27 mmol/L Normal 22-30 [facility] Comment on above: Performed By: #### H TIERA PT, CMP3 ####[place] [address] [place] [address] Glucose [Mass/Vol] 109 mg/dL High 70-100 [facility] Comment on above: Performed By: #### H TIERA PT, CMP3 ####[place] [address] [address] Protein [Mass/Vol] 8.1 g/dL Normal 6.3-8.2 [facility] Comment on above: Performed By: #### H TIERA PT, CMP3 ####[place] [address] [address] Urea nitrogen [Mass/Vol] 22 mg/dL High 7-17 [facility] Comment on above: Performed By: #### H TIERA PT, CMP3 ####[place] [address] [place] [address] Creatinine [Mass/Vol] 0.63 mg/dL Normal 0.52-1.[address] [facility] Comment on above: Performed By: #### H CHRISTEL MOTT CMP3 ####[place] [address] [place] [address] eGFR OTHER > 90.0 Normal >60 [facility] Comment on above: Result Comment: KDIG [...] Performed By: #### H CHRISTEL MOTT CMP3 ####[address] GFR/1.73 sq M.predicted among blacks MDRD (S/P/Bld) [Vol rate/Area] mL/min/{1.73_m2} Normal >60 [facility] Comment on above: Performed By: #### H CHRISTEL MOTT CMP3 ####[place] [address] [place] [address] Albumin [Mass/Vol] 4.1 g/dL Normal 3.5-5.0 [facility] Comment on above: Performed By: #### H CHRISTEL MOTT, CMP3 ####[place] [place] [address] Chloride [Moles/Vol] 106 mmol/L Normal 98-107 [facility] Comment on above: Performed By: #### H CHRISTEL MOTT, CMP3 ####[place] [address] [place] [address] Potassium [Moles/Vol] 3.7 mmol/L Normal 3.5-5.[address] [facility] Comment on above: Performed By: #### H BIMALF, PT, CMP3 ####[facility] [id number] [place] [address] Sodium [Moles/Vol] 140 mmol/L Normal 135-145 [facility] Comment on above: Performed By: #### H BIMALF, PT, CMP3 ####[facility] [id number] [place] [address] Comprehensive Metabolic Pane kiel 03-02-2022 Albumin [Mass/Vol] 4.1 g/dL 3.5 - 5.0 g/dL [facility] ([facility]ld[facility] [Catalytic activity/Vol] 128 U/L [...] P INF mL/min [facility] EGFR IF NonAfrican Finnish mL/min 60 - PINF mL/min [facility] Comment [...] - 17 mg/dL [facility] Test Performed by [id number] [place] [address] ED Provider Noteon ED Provider Note [facility] EMERGENCY DEPARTMENT ENCOUNTER Pt Name: Andrew Sifuentes Birthdate 1950 Date of evaluation: 03/02/2022 Provider: Lanette Munguia DO CHIEF COMPLAINT Chief Complaint Patient presents with Fall Patient had unwitnessed fall at [facility] landed on butt. Is on thinners, denies LOC, denies head injury has no complaints at this time HISTORY OF PRESENT ILLNESS (Location/Symptom, Timing/Onset, Context/Setting, Quality, Duration, Modifying Factors, Severity) Note limiting factors. I wore a N-95 mask for the entirety of this encounter. Andrew Sifuentes is a 71 y.o. male medical history of hydrocephalus status post ROLL MACHINE OPERATOR shunt, history of DVT on Coumadin who presents to the emergency department from [facility] for evaluation following mechanical fall. Patient rolled out of bed. Unwitnessed. Found down on ground by nursing staff. Nonambulatory at baseline. Patient reports he did not hit his head. Has no acute complaints. Denies any pain or traumatic injury. [facility] to [facility] department due to unwitnessed [...] Hemorrhoids Hydrocephalus, adult (HCC) Kidney stone Neuropathy ROLL MACHINE OPERATOR (ventriculoperitoneal) shunt status SURGICAL HISTORY Past [...] CONTRAST R (more content not included)... Normal [facility] Hemogram w/ Autodiffon 03-02 Abs Baso Cnt 0.2 10*3/uL Normal 0.0-0.2 [facility] Comment on above: Performed By: #### H EMDF, PT, CMP3 ####[facility] [place] [address] Abs Neutrophile Cnt 10.7 10*3/uL High 1.8-7.[address] [facility] Comment on above: Performed By: #### H EMDF, PT, CMP3 ####[facility] [place] [address] Basophils/100 WBC (Bld) 1.1 % Normal 0.0-2.0 [facility] Comment on above: Performed By: #### H TIERA PT, CMP3 ####[address] [address] Eosinophils (Bld) [#/Vol] 0.1 10*3/uL Normal 0.0-0.5 [facility] Comment on above: Performed By: #### H TIERA PT, CMP3 ####[address] [address] Eosinophils/100 WBC (Bld) 0.5 % Low 1.0-6.0 [facility] Comment on above: Performed By: #### H TIERA PT, CMP3 ####[address] [address] Granulocytes/100 WBC (Bld) 73.9 % Normal 40.0-80.0 [facility] Comment on above: Performed By: #### H TIERA PT, CMP3 ####[address] [address] Lymphocytes (Bld) [#/Vol] 3.0 10*3/uL Normal 1.0-4.3 [facility] Comment on above: Performed By: #### H TIERA PT, CMP3 ####[address] [address] Lymphocytes/100 WBC (Bld) 20.6 % Normal 20.0-40.0 [facility] Comment on above: Performed By: #### H EMDF PT, CMP3 ####[address] [address] Monocytes (Bld) [#/Vol] 0.6 10*3/uL Normal 0.0-0.8 [facility] Comment on above: Performed By: #### H EMDF PT, CMP3 ####[address] [address] Monocytes/100 WBC (Bld) 3.9 % Normal 2.0-10.0 [facility] Comment on above: Performed By: #### H TIERA PT, CMP3 ####[address] Platelet mean volume (Bld) [Entitic vol] 8.5 fL Normal 7.4-12.4 [facility] Comment on above: Result Comment: MPV is a calculated measurement using platelet volume ratio. Performed By: #### H TIERA PT, CMP3 ####[address] Platelets (Bld) [#/Vol] 411 10*3/uL Normal 140-440 [facility] Comment on above: Performed By: #### H TIERA PT CMP3 ####[address] Erythrocyte distribution width (RBC) [Ratio] 17.0 % High 11.5-14.5 [facility] Comment on above: Performed By: #### H TIERA PT, CMP3 ####[address] Hematocrit (Bld) [Volume fraction] 37.4 % Low 40.0-52.0 [facility] Comment on above: Performed By: #### H TIERA PT, CMP3 ####[place] [address] [place], [place] Hemoglobin (Bld) [Mass/Vol] 12.1 g/dL Low 13.0-18.0 [facility] Comment on above: Performed By: #### H TIERA PT, CMP3 ####[address] MCH (RBC) [Entitic mass] 26.2 pg Normal 26.0-34.0 [facility] Comment on above: Performed By: #### H TIERA PT, CMP3 ####[place] [address] [place], [place] MCHC 32.3 % Normal 32.0-36.0 [facility] Comment on above: Performed By: #### H TIERA PT, CMP3 ####[place] [address] [place], [place] MCV (RBC) [Entitic vol] 81.1 fL Normal 80.0-98.0 [facility] Comment on above: Performed By: #### H EMDF, PT, CMP3 ####[place] [address] [place], [place] RBC (Bld) [#/Vol] 4.61 10*6/uL Normal 4.40-5.90 [facility] Comment on above: Performed By: #### H EMDF, PT, CMP3 ####[address] WBC (Bld) [#/Vol] 14.5 10*3/uL High 3.6-10.7 [facility] Comment on above: Performed By: #### H EMDF, PT, CMP3 ####[address] Prothrombin Timeon INR 1.9 High 0.9-1.1 [facility] Comment on above: Result Comment: Harry [...] Performed By: #### H EMDF, PT, CMP3 ####[place] [address] [place], [place] PT Coag (PPP) [Time] 18.9 s High 9.0-12.0 [facility] Comment on above: Result Comment: . Performed By: #### H EMDF, PT, CMP3 ####[address] Protime-INRon 03-02-2022 INR Coag (Bld) [Relative time] 1.9 {INR} High [facility] Comment on above: Recommended Anticoag ulant [...] and review of laboratory results Abnormal [facility] PT Coag (PPP) [Time] 18.9 s High 9.0 - 12.0 s [facility] Comment on above: . Test Performed by [address] [facility] Laboratory - CoagulationOrde red By: Carlos Cavazos on 02-20-2022 INR Coag (Bld) [Relative time] 2.6 {INR} [facility] Comment on above: Critical Value > 4.0 Whole blood prothrombin time Ordered By: Carlos Cavazos on 02-20-2022 PT Coag (Bld) [Time] 30.1 s 11.7-14.9 [facility] Laboratory - CoagulationOrde red By: Carlos Cavazos on 02-13-2022 INR Coag (Bld) [Relative time] 2.3 {INR} [facility] Comment on above: Critical Value > 4.0 Whole blood prothrombin time Ordered By: Carlos Cavazos on 02-13-2022 PT Coag (Bld) [Time] 26.7 s 11.7-14.9 [facility] Laboratory - CoagulationOrde red By: Carlos Cavazos on 02-06-2022 INR Coag (Bld) [Relative time] 2.3 {INR} [facility] Comment on above: Critical Value > 4.0 Whole blood prothrombin time Ordered By: Carlos Cavazos on 02-06-2022 PT Coag (Bld) [Time] 26.6 s 11.7-14.9 [facility] Laboratory - Coagulationon 0 01-30-2022 INR Coag (Bld) [Relative time] 1.7 {INR} [facility] Work Phone: Comment on above: Critical Value > 4.0 Whole blood prothrombin time on 01-30-2022 PT Coag (Bld) [Time] 20.1 s 11.7-14.9 [facility] Work Phone: Laboratory - Coagulationon 0 01-26-2022 INR Coag (Bld) [Relative time] 1.8 {INR} [facility] Work Phone: Comment on above: Critical Value > 4.0 Whole blood prothrombin time on 01-26-2022 PT Coag (Bld) [Time] 21.8 s 11.7-14.9 [facility] Work Phone: Laboratory - Coagulationon 0 01-19-2022 INR Coag (Bld) [Relative time] 2.2 {INR} [facility] Work Phone: Comment on above: Critical Value > 4.0 Whole blood prothrombin time on 01-19-2022 PT Coag (Bld) [Time] 25.7 s 11.7-14.9 [facility] Work Phone: INR in Blood by Coagulation assayon 01-10-2022 INR Coag (Bld) [Relative time] 1.8 {INR} [facility] Work Phone: Laboratory - Coagulationon 0 01-10-2022 PT Coag (PPP) [Time] 20.9 s 11.7-14.9 [facility] Work Phone: Basophil percentageon 2021 Chloride [Moles/Vol] 107 mmol/L 98-107 [facility] Work Phone: Glucose [Mass/Vol] 82 mg/dL 74-106 [facility] Work Phone: Potassium [Moles/Vol] 3.4 mmol/L 3.5-5.1 [facility] Work Phone: Sodium [Moles/Vol] 143 mmol/L 136-145 [facility] Work Phone: WBC (Bld) [#/Vol] 10.4 10*3/uL 4.4-11.0 [facility] Work Phone: Blood erythrocytes count (nu mber/volume)on 01-05-2022 RBC (Bld) [#/Vol] 4.27 10*6/uL 4.6-6.2 [facility] Work Phone: Blood hemoglobin measurement (mass/volume)on 01-05-2022 Hemoglobin (Bld) [Mass/Vol] 11.2 g/dL 13.0-16.5 [facility] Work Phone: Blood platelet mean volumeon 01-05-2022 Platelet mean volume (Bld) [Entitic vol] 10.3 fL 6.2-12.0 [facility] Work Phone: Determination of erythrocyte mean corpuscular volume (MCV)on 01-05-2022 MCV (RBC) [Entitic vol] 84.8 fL 80-94 [facility] Work Phone: Hematocrit Auto (Bld) [Volum e fraction]on 01-05-2022 Hematocrit (Bld) [Volume fraction] 36.2 % 40-54 [facility] Work Phone: Laboratory - Chemistry and C hemistry - challengeon 01-05-2022 CO2 [Moles/Vol] 28.0 mmol/L 21.0-32.0 [facility] Work Phone: Urea nitrogen/Creatinine [Mass ratio] 20.0 mg/mg 10-20 [facility] Work Phone: Laboratory - Hematology and Cell countson 01-05-2022 Erythrocyte distribution width (RBC) [Entitic vol] 51.8 fL 35.1-43.9 [facility] Work Phone: Erythrocyte distribution width (RBC) [Ratio] 16.8 % 11.6-14.6 [facility] Work Phone: MCH (RBC) [Entitic mass] 26.2 pg 27.0-32.0 [facility] Work Phone: MCHC Auto (RBC) [Mass/Vol]on 01-05-2022 MCHC (RBC) [Mass/Vol] 30.9 g/dL 32-36 [facility] Work Phone: No Panel Informationon 01-05 Estimated GFR (MDRD) Amer 133 mL/min >60 [facility] Work Phone: Comment on above: GFR Calc Estimated GFR (MDRD) Non-Af Amer 110 mL/min >60 [facility] Work Phone: Comment on above: Non- GFR Calc Platelets bldon 01-05-2022 Platelets (Bld) [#/Vol] 373 10*3/uL 150-450 [facility] Work Phone: Serum or plasma calcium oral urement (mass/volume)on 01-05-2022 Calcium [Mass/Vol] 8.8 mg/dL 8.5-10.1 [facility] Work Phone: Serum or plasma creatinine m easurement (mass/volume)on 01-05-2022 Creatinine [Mass/Vol] 0.75 mg/dL 0.70-1.30 [facility] Work Phone: Comment on above: The validity of the calculated GFR & GFRAA in patients over 70 years has not been determined. Clinical correlation is essential. Serum or plasma urea nitroge n measurement (mass/volume)on 01-05-2022 Urea nitrogen [Mass/Vol] 15 mg/dL 7-18 [facility] Work Phone: Thin prep Papanicolaou smear with manual screeningon 01-05-2022 Thin prep Papanicolaou smear with manual screening 8 5-15 [facility] Work Phone: Laboratory - Coagulationon 0 12-30-2021 INR Coag (Bld) [Relative time] 2.0 {INR} [facility] Work Phone: Comment on above: Critical Value > 4.0 Whole blood prothrombin time on 12-30-2021 PT Coag (Bld) [Time] 23.7 s 11.7-14.9 [facility] Work Phone: Basophil percentageon 2021 Chloride [Moles/Vol] 106 mmol/L 98-[address] [facility] Work Phone: Glucose [Mass/Vol] 91 mg/dL 74-106 [email or web address] Work Phone: Potassium [Moles/Vol] 3.4 mmol/L 3.5-5.[address] [facility] Work Phone: Sodium [Moles/Vol] 141 mmol/L 136-145 [facility] Work Phone: WBC (Bld) [#/Vol] 10.2 10*3/uL 4.4-11.0 [facility] Work Phone: Blood erythrocytes count (nu mber/volume)on 12-28-2021 RBC (Bld) [#/Vol] 4.22 10*6/uL 4.6-6.2 [facility] Work Phone: Blood hemoglobin measurement (mass/volume)on 12-28-2021 Hemoglobin (Bld) [Mass/Vol] 11.2 g/dL 13.0-16.5 [facility] Work Phone: Blood platelet mean volumeon 12-28-2021 Platelet mean volume (Bld) [Entitic vol] 10.1 fL 6.2-12.0 [facility] Work Phone: Determination of erythrocyte mean corpuscular volume (MCV)on 12-28-2021 MCV (RBC) [Entitic vol] 82.7 fL 80-94 [facility] Work Phone: Hematocrit Auto (Bld) [Volum e fraction]on 12-28-2021 Hematocrit (Bld) [Volume fraction] 34.9 % 40-54 [facility] Work Phone: Laboratory - Chemistry and C hemistry - challengeon 12-28-2021 CO2 [Moles/Vol] 30.0 mmol/L 21.0-32.0 [facility] Work Phone: Urea nitrogen/Creatinine [Mass ratio] 33.7 mg/mg 10-20 [facility] Work Phone: Laboratory - Hematology and Cell countson 12-28-2021 Erythrocyte distribution width (RBC) [Entitic vol] 49.1 fL 35.1-43.9 [facility] Work Phone: Erythrocyte distribution width (RBC) [Ratio] 16.5 % 11.6-14.6 [facility] Work Phone: MCH (RBC) [Entitic mass] 26.5 pg 27.0-32.0 [facility] Work Phone: MCHC Auto (RBC) [Mass/Vol]on 12-28-2021 MCHC (RBC) [Mass/Vol] 32.1 g/dL 32- [facility] Work Phone: No Panel Informationon 12-28 Estimated GFR (MDRD) Amer 174 mL/min >60 [facility] Work Phone: Comment on above: GFR Calc Estimated GFR (MDRD) Non-Af Amer 143 mL/min >60 [facility] Work Phone: Comment on above: Non- GFR Calc Platelets bldon 12-28-2021 Platelets (Bld) [#/Vol] 339 10*3/uL 150-450 [facility] Work Phone: Serum or plasma calcium oral urement (mass/volume)on 12-28-2021 Calcium [Mass/Vol] 8.6 mg/dL 8.5-10.1 [facility] Work Phone: Serum or plasma creatinine m easurement (mass/volume)on 12-28-2021 Creatinine [Mass/Vol] 0.59 mg/dL 0.70-1.30 [facility] Work Phone: Comment on above: The validity of the calculated GFR & GFRAA in patients over 70 years has not been determined. Clinical correlation is essential. Serum or plasma urea nitroge n measurement (mass/volume)on 12-28-2021 Urea nitrogen [Mass/Vol] 20 mg/dL 7- [facility] Work Phone: Thin prep Papanicolaou smear with manual screeningon 12-28-2021 Thin prep Papanicolaou smear with manual screening 5 5-15 [facility] Work Phone: CULTURE BLOODon 12-27-2021 Microscopic examination of blood, culture CULTURE BLOOD --> Status: F No growth at 5 days. Normal [facility] Comment on above: Performed By: #### C /BLD #### [facility] [address] [address] [place] [address] Laboratory - Coagulationon 0 12-26-2021 INR Coag (Bld) [Relative time] 1.7 {INR} [facility] Work Phone: Comment on above: Critical Value > 4.0 Whole blood prothrombin time on 12-26-2021 PT Coag (Bld) [Time] 20.8 s 11.7-14.9 [facility] Work Phone: Basic Metabolic Panelon 12-05 Calcium [Mass/Vol] 8.8 mg/dL Normal 8.4-10.4 [facility] Comment on above: Performed By: #### C RP2, ESR, HEMDF, BMP3 ####[employer] [address] [place] [address] Anion gap [Moles/Vol] 6 mmol/L Normal 3-[address] [facility] Comment on above: Performed By: #### C RP2, ESR, HEMDF, BMP3 ####[address] [place] [address] CO2 [Moles/Vol] 27 mmol/L Normal 22-30 [facility] Comment on above: Performed By: #### C RP2, ESR, HEMDF, BMP3 ####[address] [place] [address] Glucose [Mass/Vol] 100 mg/dL Normal 70-100 [facility] Comment on above: Performed By: #### C RP2, ESR, HEMDF, BMP3 ####[address], [place] Urea nitrogen [Mass/Vol] 18 mg/dL High 7-17 [facility] Comment on above: Performed By: #### C RP2, ESR, HEMDF, BMP3 ####[facility] [place], [place] Creatinine [Mass/Vol] 0.73 mg/dL Normal 0.52-1.[address] [facility] Comment on above: Performed By: #### C RP2, ESR, HEMDF, BMP3 ####[id number] [place], [place] eGFR OTHER > 90.0 Normal >60 [facility] Comment on above: Result Comment: KDIG [...] By: #### C RP2, ESR, HEMDF, BMP3 ####[facility] [place], [place] GFR/1.73 sq M.predicted among blacks MDRD (S/P/Bld) [Vol rate/Area] mL/min/{1.73_m2} Normal >60 [facility] Comment on above: Performed By: #### C RP2, ESR, HEMDF, BMP3 ####[facility] [place], [place] Potassium [Moles/Vol] 3.7 mmol/L Normal 3.5-5.[address] [facility] Comment on above: Performed By: #### C RP2, ESR, HEMDF, BMP3 ####[facility] [place] [address] Chloride [Moles/Vol] 106 mmol/L Normal 98-107 [facility] Comment on above: Performed By: #### C RP2, ESR, HEMDF, BMP3 ####[facility] [place] [address] Sodium [Moles/Vol] 139 mmol/L Normal 135-145 [facility] Comment on above: Performed By: #### C RP2, ESR, HEMDF, BMP3 ####[facility] [place] [address] Anion gap [Moles/Vol] 6 mmol/L 3 - 13 mmol/L [facility] Calcium [Mass/Vol] 8.8 mg/dL 8.4 - 10. 4 mg/dL [facility] Chloride [Moles/Vol] 106 mmol/L 98 - 10 7 mmol/L [facility] CO2 [Moles/Vol] 27 mmol/L 22 - 30 mmol/L [facility] Creatinine [Mass/Vol] 0.73 mg/dL 0.52 - 1.25 mg/dL [facility] eGFR mL/min 60 - P INF mL/min [facility] EGFR IF NonAfrican Finnish mL/min 60 - PINF mL/min [facility] Comment on above: KDIGO guidelines pro [...] [Moles/Vol] 139 mmol/L 135 - 145 mmol/L [facility] Urea nitrogen (BldV) [Mass/Vol] 18 mg/dL High 7 - 17 mg/dL [facility] Basophil percentageon 2021 Basophil percentage 25-50 SEEN /hpf 0-5 [facility] Work Phone: Chloride [Moles/Vol] 106 mmol/L 98-107 [facility] Work Phone: Glucose [Mass/Vol] 93 mg/dL 74-106 [facility] Work Phone: Potassium [Moles/Vol] 3.5 mmol/L 3.5-5.1 [facility] Work Phone: Sodium [Moles/Vol] 140 mmol/L 136-145 [facility] Work Phone: WBC (Bld) [#/Vol] 9.6 10*3/uL 4.4-11.0 [facility] Work Phone: Bilirubin Test strip Ql (U)o n 12-22-2021 Bilirubin Ql (U) Negative Negative [facility] Work Phone: Blood erythrocytes count (nu mber/volume)on 12-22-2021 RBC (Bld) [#/Vol] 4.34 10*6/uL 4.6-6.2 [facility] Work Phone: Blood hemoglobin measurement (mass/volume)on 12-22-2021 Hemoglobin (Bld) [Mass/Vol] 11.5 g/dL 13.0-16.5 [facility] Work Phone: Blood platelet mean volumeon 12-22-2021 Platelet mean volume (Bld) [Entitic vol] 10.8 fL 6.2-12.0 [facility] Work Phone: C-Reactive Proteinon 022 CRP [Mass/Vol] 27.2 mg/L High 0.0-9.9 [facility] Comment on above: Result Comment: . Performed By: #### C RP2, ESR, HEMDF, BMP3 ####[facility] [address] [place] [address] CRP [Mass/Vol] 27.2 mg/L High 0 - 9.9 mg/L [facility] Comment on above: . CBC with Auto [...] - 10.7 10*3/uL [facility] Test Performed by [address] [facility] COVID-19, Flu A/B, and RSV C omboon 12-22-2021 Influenza A by PCR Not detected [facility] A Influenza B by PCR Not detected [facility] A RSV PCR Not Detected. Expected Result: Not Detected _ Method: Real-time, RT-PCR This assay was developed by [employer] and distributed under an Emergency Use Authorization (EUA) granted by the FDA for the qualitative detection of nucleic acids from SARS-CoV-2, Influenza A, Influenza B, and Respiratory Syncytial Virus. Provider and patient fact sheets can be found at https://www.fda.gov/media /767666/download and https://www.fda.gov/media /378557/download. [facility] SARS-CoV-2 (COVID-19) RNA MEGAN+probe Ql (Unsp spec) Not detected [facility] Test Performed by [address] [facility] CR Foot Complete 3+ Views Le f[place] 12-22-2021 CR Foot Complete 3+ Views Left Patient Name: ANDREW SIFUENTES Diagnostic Radiology ACCESSION EXAM DATE/TIME PROCEDURE ORDERING PROVIDER [id number] 12/22/2021 00:09 EDT CR Foot Complete 3+ SANDY HIDALGO, JOAN Views Left CPT code 83768 Reason For Exam (CR Foot Complete 3+ [...] Transcribed Date and Time: 12/22/2021 0:21 Normal [facility] Calcium oxalate crystals det ection in urine sediment by light microscopyon 12-22-2021 Calcium oxalate crystals LM Ql (Urine sed) 1+ /hpf [facility] Work Phone: Determination of erythrocyte mean corpuscular volume (MCV)on 12-22-2021 MCV (RBC) [Entitic vol] 84.3 fL 80-94 [facility] Work Phone: ED Provider Noteon 2 [...] leg for a while. According [facility] completed x-ray of the lower extremity and there was concern for osteomyelitis hence transferring patient to the hospital. Patient states this time the wounds on the left lower extremity for extended period of time. He denies fevers or chills. Patient states [facility]iary staff have been taking care of the wound for him. Focused exam: Blood pressure 108/67, pulse 77, temperature 97.9 ?F (36.6 ?C), temperature source Oral, resp. rate 16, height 5' 9" (1.753 m), weight 79.4 kg (175 lb), SpO2 96 %. [id number] in no acute distress. Alert and oriented [...] [employer] Sharon Olivia MD 12/22/21 0305 [facility] ED Provider Note [facility] EM[facility]GENCY DEPT EMERGENCY DEPARTMENT ENCOUNTER Pt Name: Andrew Sifuentes Birthdate 1950 Date of evaluation: 12/21/2021 Provider: SANIA Lou CHIEF COMPLAINT Chief Complaint Patient presents with Osteomyelitis Patient from [facility], facility did xrays on left lower leg and and have concerns for possible osteomyelitis A&Ox2 to self and place, stated year 2022 [facility] martini HISTORY OF PRESENT ILLNESS (Location/Symptom, Timing/Onset, Context/Setting, Quality,Duration, Modifying Factors, Severity) Note limiting factors. 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 Tenderness: (more content not included)... Normal [facility] Hematocrit Auto (Bld) [Volum e fraction]on 12-22-2021 Hematocrit (Bld) [Volume fraction] 36.6 % 40-54 [facility] Work Phone: Hemogram w/ Autodiffon 12-22 Abs Baso Cnt 0.1 10*3/uL Normal 0.0-0.2 [facility] Comment on above: Performed By: #### C RP2, ESR, HEMDF, BMP3 ####[address] [place], [place] Abs Neutrophile Cnt 5.9 10*3/uL Normal 1.8-7.0 [facility] Comment on above: Performed By: #### C RP2, ESR, HEMDF, BMP3 ####[address] Basophils/100 WBC (Bld) 0.7 % Normal 0.0-2.0 [facility] Comment on above: Performed By: #### C RP2, ESR, HEMDF, BMP3 ####[address] [place], [place] Eosinophils (Bld) [#/Vol] 0.2 10*3/uL Normal 0.0-0.5 [facility] Comment on above: Performed By: #### C RP2, ESR, HEMDF, BMP3 ####[address] Eosinophils/100 WBC (Bld) 2.3 % Normal 1.0-6.0 [facility] Comment on above: Performed By: #### C RP2, ESR, HEMDF, BMP3 ####[address] Erythrocyte distribution width (RBC) [Ratio] 17.5 % High 11.5-14.5 [facility] Comment on above: Performed By: #### C RP2, ESR, HEMDF, BMP3 ####[address] [address] Granulocytes/100 WBC (Bld) 57.8 % Normal 40.0-80.0 [facility] Comment on above: Performed By: #### C RP2, ESR, HEMDF, BMP3 ####[address] Hematocrit (Bld) [Volume fraction] 33.3 % Low 40.0-52.0 [facility] Comment on above: Performed By: #### C RP2, ESR, HEMDF, BMP3 ####[address] Hemoglobin (Bld) [Mass/Vol] 11.0 g/dL Low 13.0-18.0 [facility] Comment on above: Performed By: #### C RP2, ESR, HEMDF, BMP3 ####[address] Lymphocytes (Bld) [#/Vol] 3.3 10*3/uL Normal 1.0-4.3 [facility] Comment on above: Performed By: #### C RP2, ESR, HEMDF, BMP3 ####[address] Lymphocytes/100 WBC (Bld) 33.0 % Normal 20.0-40.0 [facility] Comment on above: Performed By: #### C RP2, ESR, HEMDF, BMP3 ####[address] MCH (RBC) [Entitic mass] 26.5 pg Normal 26.0-34.0 [facility] Comment on above: Performed By: #### C RP2, ESR, HEMDF, BMP3 ####[address] MCHC 33.1 % Normal 32.0-36.0 [facility] Comment on above: Performed By: #### C RP2, ESR, HEMDF, BMP3 ####[address] MCV (RBC) [Entitic vol] 80.2 fL Normal 80.0-98.0 [facility] Comment on above: Performed By: #### C RP2, ESR, HEMDF, BMP3 ####[address] Monocytes (Bld) [#/Vol] 0.6 10*3/uL Normal 0.0-0.8 [facility] Comment on above: Performed By: #### C RP2, ESR, HEMDF, BMP3 ####[address] [place], [place] Monocytes/100 WBC (Bld) 6.2 % Normal 2.0-10.0 [facility] Comment on above: Performed By: #### C RP2, ESR, HEMDF, BMP3 ####[address] [place], [place] Platelet mean volume (Bld) [Entitic vol] 8.0 fL Normal 7.4-12.4 [facility] Comment on above: Result Comment: MPV is a calculated measurement using platelet volume ratio. Performed By: #### C RP2, ESR, HEMDF, BMP3 ####[address] Platelets (Bld) [#/Vol] 368 10*3/uL Normal 140-440 [facility] Comment on above: Performed By: #### C RP2, ESR, HEMDF, BMP3 ####[address] RBC (Bld) [#/Vol] 4.15 10*6/uL Low 4.40-5.90 [facility] Comment on above: Performed By: #### C RP2, ESR, HEMDF, BMP3 ####[address] WBC (Bld) [#/Vol] 10.1 10*3/uL Normal 3.6-10.7 [facility] Comment on above: Performed By: #### C RP2, ESR, HEMDF, BMP3 ####[address] [place], [place] Ketones Test strip Ql (U)on 12-22-2021 Ketones Ql (U) Negative Negative [facility] Work Phone: Laboratory - Chemistry and C hemistry - challengeon 12-22-2021 CO2 [Moles/Vol] 27.0 mmol/L 21.0-32.0 [facility] Work Phone: Urea nitrogen/Creatinine [Mass ratio] 22.5 mg/mg 10-20 [facility] Work Phone: Laboratory - Hematology and Cell countson 12-22-2021 Erythrocyte distribution width (RBC) [Entitic vol] 49.1 fL 35.1-43.9 [facility] Work Phone: Erythrocyte distribution width (RBC) [Ratio] 16.1 % 11.6-14.6 [facility] Work Phone: MCH (RBC) [Entitic mass] 26.5 pg 27.0-32.0 [facility] Work Phone: MCHC Auto (RBC) [Mass/Vol]on 12-22-2021 MCHC (RBC) [Mass/Vol] 31.4 g/dL 32-36 [facility] Work Phone: Mucus LM Ql (Urine sed)on Mucus Ql (Urine sed) 0 SEEN /hpf [facility] Work Phone: Nitrite Test strip Ql (U)on 12-22-2021 Nitrite Ql (U) Positive Negative [facility] Work Phone: No Panel Informationon 12-22 Estimated GFR (MDRD) Amer 152 mL/min >60 [facility] Work Phone: Comment on above: GFR Calc Estimated GFR (MDRD) Non-Af Amer 125 mL/min >60 [facility] Work Phone: Comment on above: Non- GFR Calc Interpretation and review of laboratory results Abnormal [facility] Test Performed by [facility], [address] [place] [id number] [facility] Platelets bldon 12-22-2021 Platelets (Bld) [#/Vol] 317 10*3/uL 150-450 [facility] Work Phone: Protein Test strip Ql (U)on 12-22-2021 Protein Ql (U) 30 mg/dl Negative [facility] Work Phone: SARS-CoV-2, Flu A/B and RSVo n 12-22-2021 SARS-CoV-2 (COVID-19) RNA MEGAN+probe Ql (Unsp spec) SARS-CoV-2 --> Status: F Not Detected. Flu A PCR --> Status: F Not Detected. Flu B PCR --> Status: F Not Detected. RSV PCR --> Status: F Not Detected. Expected Result: Not Detected _ Method: Real-time, RT-PCR This assay was developed by [employer] and distributed under an Emergency Use Authorization (EUA) granted by the FDA for the qualitative detection of nucleic acids from SARS-CoV-2, Influenza A, Influenza B, and Respiratory Syncytial Virus. Provider and patient fact sheets can be found at https://www.fda.gov/media /780058/download and https://www.fda.gov/media /631111/download. Expected Result: Not Detected _ Method: Real-time, RT-PCR This assay was developed by [employer] and distributed under an Emergency Use Authorization (EUA) granted by the FDA for the qualitative detection of nucleic acids from SARS-CoV-2, Influenza A, Influenza B, and Respiratory Syncytial Virus. Provider and patient fact sheets can be found at https://www.fda.gov/media /382701/download and https://www.fda.gov/media /833134/download. Normal [facility] Comment on above: Performed By: #### C VFLR ####[facility] [place] [address], [id number] Sed Rateon 12-22-2021 Sed Rate 48 mm/h High 0-10 [facility] Comment on above: Performed By: #### C RP2, ESR, HEMDF, BMP3 ####[address] [place] [address] Sedimentation Rateon 022 Interpretation and review of laboratory results Abnormal [facility] Sed Rate 48 mm/h High 0 - 10 mm/h [facility] Test Performed by [facility], [address] [place] [address] [facility] Serum or plasma calcium oral urement (mass/volume)on 12-22-2021 Calcium [Mass/Vol] 8.6 mg/dL 8.5-10.1 [facility] Work Phone: Serum or plasma creatinine m easurement (mass/volume)on 12-22-2021 Creatinine [Mass/Vol] 0.67 mg/dL 0.70-1.30 [facility] Work Phone: Comment on above: The validity of the calculated GFR & GFRAA in patients over 70 years has not been determined. Clinical correlation is essential. Serum or plasma urea nitroge n measurement (mass/volume)on 12-22-2021 Urea nitrogen [Mass/Vol] 15 mg/dL 11-21 [facility] Work Phone: Squamous epithelial cells de tection in urine sediment by light microscopyon 12-22-2021 Epithelial cells.squamous LM Ql (Urine sed) 0-5 SEEN /hpf 0-5 [facility] Work Phone: Thin prep Papanicolaou smear with manual screeningon 12-22-2021 Thin prep Papanicolaou smear with manual screening 7 5-15 [facility] Work Phone: Urine blood detectionon 12-05 RBC Ql (U) 150 /ul Negative [facility] Work Phone: RBC Ql (U) 10-25 SEEN /hpf 0-5 [facility] Work Phone: Urine clarityon 12-22-2021 Clarity (U) Sl. Cloudy Clear [facility] Work Phone: Urine color determinationon 12-22-2021 Color (U) Yellow Yellow [facility] Work Phone: Urine glucose detectionon Glucose Ql (U) Normal mg/dl Normal [facility] Work Phone: Urine leukocyte esterase det ection by dipstickon 12-22-2021 Leukocyte esterase Test strip Ql (U) 500 /ul Negative [facility] Work Phone: Urine pHon 12-22-2021 pH (U) 6.0 [pH] 5.0 - 8.0 [facility] Work Phone: Urine sediment bacteria coun t by microscopy (number/high power field)on 12-22-2021 Bacteria LM.HPF (Urine sed) [#/Area] 2 /[HPF] None Seen [facility] Work Phone: Urine specific gravity measu rementon 12-22-2021 Specific gravity (U) [Rel density] 1.020 1.002-1.030 [facility] Work Phone: Urobilinogen Auto test strip Ql (U)on 12-22-2021 Urobilinogen Ql (U) Normal mg/dl Normal [facility] Work Phone: XR FOOT LEFT (MIN 3 VIEWS)on 12-22-2021 Patient Name: ANDREW SIFUENTES Diagnostic Radiology ACCESSION EXAM DATE/TIME PROCEDURE ORDERING PROVIDER [id number] 12/22/2021 00:09 EDT CR Foot Complete 3+ SANDY HIDALGO JOHN M Views Left CPT code 21518 Reason For Exam (CR Foot Complete 3+ [...] JEFFREY Transcribed Date and Time: 12/22/2021 0:21 [facility] RAD Albert Solano MD - 12/22/2021 Patient Name: [id number] Diagnostic Radiology ACCESSION EXAM DATE/TIME PROCEDURE ORDERING PROVIDER [id number] 12/22/2021 00:09 EDT CR Foot Complete 3+ SANDY HIDALGO, JOAN Views Left CPT code 89515 Reason For Exam (CR Foot Complete 3+ [...] Transcribed Date and Time: 12/22/2021 0:21 [facility] Work Phone: Radiology Study observation (narrative) [facility] Work Phone: XR FOOT LEFT (MIN 3 VIEWS)Or dered By: Albert Solano on 12-22-2021 [facility] Work Phone: Basophil percentageon 2021 Chloride [Moles/Vol] 103 mmol/L 98-107 [facility] Work Phone: Glucose [Mass/Vol] 92 mg/dL 74-106 [facility] Work Phone: Potassium [Moles/Vol] 3.5 mmol/L 3.5-5.1 [facility] Work Phone: Sodium [Moles/Vol] 138 mmol/L 136-145 [email or web address] r [facility] Work Phone: WBC (Bld) [#/Vol] 11.2 10*3/uL 4.4-11.0 [facility] Work Phone: Blood erythrocytes count (nu mber/volume)on 12-19-2021 RBC (Bld) [#/Vol] 4.50 10*6/uL 4.6-6.2 [facility] Work Phone: Blood hemoglobin measurement (mass/volume)on 12-19-2021 Hemoglobin (Bld) [Mass/Vol] 12.2 g/dL 13.0-16.5 [facility] Work Phone: Blood platelet mean volumeon 12-19-2021 Platelet mean volume (Bld) [Entitic vol] 11.3 fL 6.2-12.0 [facility] Work Phone: Determination of erythrocyte mean corpuscular volume (MCV)on 12-19-2021 MCV (RBC) [Entitic vol] 85.6 fL 80-94 [facility] Work Phone: Hematocrit Auto (Bld) [Volum e fraction]on 12-19-2021 Hematocrit (Bld) [Volume fraction] 38.5 % 40-54 [facility] Work Phone: Laboratory - Chemistry and C hemistry - challengeon 12-19-2021 CO2 [Moles/Vol] 30.0 mmol/L 21.0-32.0 [facility] Work Phone: Urea nitrogen/Creatinine [Mass ratio] 27.1 mg/mg 10-20 [facility] Work Phone: Laboratory - Hematology and Cell countson 12-19-2021 Erythrocyte distribution width (RBC) [Entitic vol] 50.5 fL 35.1-43.9 [facility] Work Phone: Erythrocyte distribution width (RBC) [Ratio] 16.0 % 11.6-14.6 [facility] Work Phone: MCH (RBC) [Entitic mass] 27.1 pg 27.0-32.0 [facility] Work Phone: MCHC Auto (RBC) [Mass/Vol]on 12-19-2021 MCHC (RBC) [Mass/Vol] 31.7 g/dL 32-36 [facility] Work Phone: No Panel Informationon 12-19 Estimated GFR (MDRD) Amer 153 mL/min >60 [facility] Work Phone: Comment on above: GFR Calc Estimated GFR (MDRD) Non-Af Amer 126 mL/min >60 [facility] Work Phone: Comment on above: Non- GFR Calc Platelets bldon 12-19-2021 Platelets (Bld) [#/Vol] 363 10*3/uL 150-450 [facility] Work Phone: Serum or plasma calcium oral urement (mass/volume)on 12-19-2021 Calcium [Mass/Vol] 9.5 mg/dL 8.5-10.1 [facility] Work Phone: Serum or plasma creatinine m easurement (mass/volume)on 12-19-2021 Creatinine [Mass/Vol] 0.66 mg/dL 0.70-1.30 [facility] Work Phone: Comment on above: The validity of the calculated GFR & GFRAA in patients over 70 years has not been determined. Clinical correlation is essential. Serum or plasma urea nitroge n measurement (mass/volume)on 12-19-2021 Urea nitrogen [Mass/Vol] 18 mg/dL 7-18 [facility] Work Phone: Thin prep Papanicolaou smear with manual screeningon 12-19-2021 Thin prep Papanicolaou smear with manual screening 5 5-15 [facility] Work Phone: Laboratory - Coagulationon 0 - INR Coag (Bld) [Relative time] 2.0 {INR} [facility] Work Phone: Comment on above: Critical Value > 4.0 Whole blood prothrombin time on 12-12-2021 PT Coag (Bld) [Time] 23.9 s 11.7-14.9 [facility] Work Phone: ANES POSTPROC EVALon 022 ANES POSTPROC EVAL Normal [facility] Laboratory - Coagulationon 0 12-08-2021 INR Coag (Bld) [Relative time] 1.8 {INR} [facility] Work Phone: Comment on above: Critical Value > 4.0 Whole blood prothrombin time on 12-08-2021 PT Coag (Bld) [Time] 21.0 s 11.7-14.9 [facility] Work Phone: Absolute lymphocyte counton 12-05-2021 Lymphocytes Auto (Unsp spec) [#/Vol] 2.97 10*3/uL 0.83-4.51 [facility] Work Phone: Basophil percentageon 2021 Basophils/100 WBC (Bld) 0.6 % 0-1 [facility] Work Phone: Chloride [Moles/Vol] 106 mmol/L 98-107 [facility] Work Phone: Eosinophils/100 WBC (Bld) 2.3 % 0-5 [facility] Work Phone: Glucose [Mass/Vol] 107 mg/dL 74-106 [facility] Work Phone: Comment on above: Fasting Glucose resu lt from 100 to 125 mg/dL suggests IMPAIRED HOMEOSTASIS per A.D.A. criteria. Neutrophils (Bld) [#/Vol] 5.6 10*3/uL 2.0-7.7 [facility] Work Phone: Neutrophils/100 WBC (Bld) 60.2 % 47-70 [facility] Work Phone: Potassium [Moles/Vol] 3.4 mmol/L 3.5-5.1 [facility] Work Phone: Sodium [Moles/Vol] 139 mmol/L 136-145 [facility] Work Phone: WBC (Bld) [#/Vol] 9.3 10*3/uL 4.4-11.0 [facility] Work Phone: Blood erythrocytes count (nu mber/volume)on 12-05-2021 RBC (Bld) [#/Vol] 4.49 10*6/uL 4.6-6.2 [facility] Work Phone: Blood hemoglobin measurement (mass/volume)on 12-05-2021 Hemoglobin (Bld) [Mass/Vol] 12.1 g/dL 13.0-16.5 [facility] Work Phone: Blood lymphocytes/100 leukoc yteson 12-05-2021 Lymphocytes/100 WBC (Bld) 32.0 % 19-41 [facility] Work Phone: Blood monocytes/100 leukocyt eson 12-05-2021 Monocytes/100 WBC (Bld) 4.7 % 0-10 [facility] Work Phone: Blood platelet mean volumeon 12-05-2021 Platelet mean volume (Bld) [Entitic vol] 10.8 fL 6.2-12.0 [facility] Work Phone: Determination of erythrocyte mean corpuscular volume (MCV)on 12-05-2021 MCV (RBC) [Entitic vol] 84.9 fL 80-94 [facility] Work Phone: Hematocrit Auto (Bld) [Volum e fraction]on 12-05-2021 Hematocrit (Bld) [Volume fraction] 38.1 % 40-54 [facility] Work Phone: INR in Blood by Coagulation assayon 12-05-2021 INR Coag (Bld) [Relative time] 1.8 {INR} [facility] Work Phone: Laboratory - Chemistry and C hemistry - challengeon 08-01-2022 CO2 [Moles/Vol] 29.0 mmol/L 21.0-32.0 [facility] Work Phone: Urea nitrogen/Creatinine [Mass ratio] 25.4 mg/mg 10-20 [facility] Work Phone: Laboratory - Coagulationon 0 12-05-2021 PT Coag (PPP) [Time] 20.5 s 11.7-14.9 [facility] Work Phone: Laboratory - Hematology and Cell countson 12-05-2021 Erythrocyte distribution width (RBC) [Entitic vol] 48.5 fL 35.1-43.9 [facility] Work Phone: Erythrocyte distribution width (RBC) [Ratio] 15.7 % 11.6-14.6 [facility] Work Phone: Immature granulocytes/100 WBC (Bld) 0.200 % 0.0-0.9 [facility] Work Phone: Comment on above: IG% - Immature Granu locytes (promyelocytes, myelocytes and metamyelocytes) > 1% indicates that a LEFT SHIFT is Present. MCH (RBC) [Entitic mass] 26.9 pg 27.0-32.0 [facility] Work Phone: Nucleated RBC/100 WBC (Bld) [Ratio] 0 % 0-5 [facility] Work Phone: MCHC Auto (RBC) [Mass/Vol]on 12-05-2021 MCHC (RBC) [Mass/Vol] 31.8 g/dL 32-36 [facility] Work Phone: No Panel Informationon 12-05 Estimated GFR (MDRD) Amer 133 mL/min >60 [facility] Work Phone: Comment on above: GFR Calc Estimated GFR (MDRD) Non-Af Amer 110 mL/min >60 [facility] Work Phone: Comment on above: Non- GFR Calc Platelets bldon 12-05-2021 Platelets (Bld) [#/Vol] 363 10*3/uL 150-450 [facility] Work Phone: Serum or plasma calcium oral urement (mass/volume)on 12-05-2021 Calcium [Mass/Vol] 9.4 mg/dL 8.5-10.1 [facility] Work Phone: Serum or plasma creatinine m easurement (mass/volume)on 12-05-2021 Creatinine [Mass/Vol] 0.75 mg/dL 0.70-1.30 [facility] Work Phone: Comment on above: The validity of the calculated GFR & GFRAA in patients over 72 years has not been determined. Clinical correlation is essential. Serum or plasma urea nitroge n measurement (mass/volume)on 12-05-2021 Urea nitrogen [Mass/Vol] 19 mg/dL 7-18 [facility] Work Phone: Thin prep Papanicolaou smear with manual screeningon 12-05-2021 Thin prep Papanicolaou smear with manual screening 4 5-15 [facility] Work Phone: Basophil percentageon 2021 Basophil percentage 0 SEEN /hpf 0-5 [facility] Work Phone: Chloride [Moles/Vol] 104 mmol/L 98-107 [facility] Work Phone: Glucose [Mass/Vol] 90 mg/dL 74-106 [facility] Work Phone: Potassium [Moles/Vol] 3.7 mmol/L 3.5-5.1 [facility] Work Phone: Comment on above: Slight Hemolysis, Re sult may be falsely increased. Sodium [Moles/Vol] 138 mmol/L 136-145 [facility] Work Phone: WBC (Bld) [#/Vol] 10.7 10*3/uL 4.4-11.0 [facility] Work Phone: Bilirubin Test strip Ql (U)o n 12-01-2021 Bilirubin Ql (U) Negative Negative [facility] Work Phone: Blood erythrocytes count (nu mber/volume)on 12-01-2021 RBC (Bld) [#/Vol] 4.33 10*6/uL 4.6-6.2 [facility] Work Phone: Blood hemoglobin measurement (mass/volume)on 12-01-2021 Hemoglobin (Bld) [Mass/Vol] 11.6 g/dL 13.0-16.5 [facility] Work Phone: Blood platelet mean volumeon 12-01-2021 Platelet mean volume (Bld) [Entitic vol] 11.2 fL 6.2-12.0 [facility] Work Phone: Determination of erythrocyte mean corpuscular volume (MCV)on 12-01-2021 MCV (RBC) [Entitic vol] 85.2 fL 80-94 [facility] Work Phone: Hematocrit Auto (Bld) [Volum e fraction]on 12-01-2021 Hematocrit (Bld) [Volume fraction] 36.9 % 40-54 [facility] Work Phone: Ketones Test strip Ql (U)on 12-01-2021 Ketones Ql (U) Negative Negative [facility] Work Phone: Laboratory - Chemistry and C hemistry - challengeon 12-01-2021 CO2 [Moles/Vol] 27.0 mmol/L 21.0-32.0 [facility] Work Phone: Urea nitrogen/Creatinine [Mass ratio] 24.0 mg/mg 10-20 [facility] Work Phone: Laboratory - Coagulationon 0 12-01-2021 INR Coag (Bld) [Relative time] 1.6 {INR} [facility] Work Phone: Comment on above: Critical Value > 4.0 Laboratory - Hematology and Cell countson 12-01-2021 Erythrocyte distribution width (RBC) [Entitic vol] 47.9 fL 35.1-43.9 [facility] Work Phone: Erythrocyte distribution width (RBC) [Ratio] 15.5 % 11.6-14.6 [facility] Work Phone: MCH (RBC) [Entitic mass] 26.8 pg 27.0-32.0 [facility] Work Phone: MCHC Auto (RBC) [Mass/Vol]on 12-01-2021 MCHC (RBC) [Mass/Vol] 31.4 g/dL 32-36 [facility] Work Phone: Mucus LM Ql (Urine sed)on Mucus Ql (Urine sed) 0 SEEN /hpf [facility] Work Phone: Nitrite Test strip Ql (U)on 12-01-2021 Nitrite Ql (U) Negative Negative [facility] Work Phone: No Panel Informationon 12-01 Estimated GFR (MDRD) Amer 133 mL/min >60 [facility] Work Phone: Comment on above: GFR Calc Estimated GFR (MDRD) Non-Af Amer 110 mL/min >60 [facility] Work Phone: Comment on above: Non- GFR Calc Platelets bldon 12-01-2021 Platelets (Bld) [#/Vol] 336 10*3/uL 150-450 [facility] Work Phone: Protein Test strip Ql (U)on 12-01-2021 Protein Ql (U) 30 mg/dl Negative [facility] Work Phone: Serum or plasma calcium oral urement (mass/volume)on 12-01-2021 Calcium [Mass/Vol] 9.4 mg/dL 8.5-10.1 [facility] Work Phone: Serum or plasma creatinine m easurement (mass/volume)on 12-01-2021 Creatinine [Mass/Vol] 0.75 mg/dL 0.70-1.30 [facility] Work Phone: Comment on above: The validity of the calculated GFR & GFRAA in patients over 70 years has not been determined. Clinical correlation is essential. Serum or plasma urea nitroge n measurement (mass/volume)on 12-01-2021 Urea nitrogen [Mass/Vol] 18 mg/dL 7-18 [facility] Work Phone: Squamous epithelial cells de tection in urine sediment by light microscopyon 12-01-2021 Epithelial cells.squamous LM Ql (Urine sed) 0-5 SEEN /hpf 0-5 [facility] Work Phone: Thin prep Papanicolaou smear with manual screeningon 12-01-2021 Thin prep Papanicolaou smear with manual screening 7 5-15 [facility] Work Phone: Urine blood detectionon 11-05 RBC Ql (U) Negative Negative [facility] Work Phone: RBC Ql (U) 0 SEEN /hpf 0-5 [facility] Work Phone: Urine clarityon 12-01-2021 Clarity (U) Clear Clear [facility] Work Phone: Urine color determinationon 12-01-2021 Color (U) Yellow Yellow [facility] Work Phone: Urine glucose detectionon Glucose Ql (U) 50 mg/dl Normal [facility] Work Phone: Urine leukocyte esterase det ection by dipstickon 12-01-2021 Leukocyte esterase Test strip Ql (U) Negative Negative [facility] Work Phone: Urine pHon 12-01-2021 pH (U) 6.0 [pH] 5.0 - 8.0 [facility] Work Phone: Urine sediment bacteria coun t by microscopy (number/high power field)on 12-01-2021 Bacteria LM.HPF (Urine sed) [#/Area] 0 /[HPF] None Seen [facility] Work Phone: Urine sediment yeast count b y microscopy (number/high powered field)on 12-01-2021 Yeast LM.HPF (Urine sed) [#/Area] 2 /[HPF] None Seen [facility] Work Phone: Urine specific gravity measu rementon 12-01-2021 Specific gravity (U) [Rel density] 1.010 1.002-1.030 [facility] Work Phone: Urobilinogen Auto test strip Ql (U)on 12-01-2021 Urobilinogen Ql (U) Normal mg/dl Normal [facility] Work Phone: Whole blood prothrombin time on 12-01-2021 PT Coag (Bld) [Time] 19.8 s 11.7-14.9 [facility] Work Phone: Laboratory - Coagulationon 0 11-28-2021 INR Coag (Bld) [Relative time] 1.6 {INR} [facility] Work Phone: Comment on above: Critical Value > 4.0 Whole blood prothrombin time on 11-28-2021 PT Coag (Bld) [Time] 18.8 s 11.7-14.9 [facility] Work Phone: INR in Blood by Coagulation assayon 11-23-2021 INR Coag (Bld) [Relative time] 2.7 {INR} [facility] Work Phone: Laboratory - Coagulationon 0 11-23-2021 PT Coag (PPP) [Time] 28.0 s 11.7-14.9 [facility] Work Phone: Laboratory - Coagulationon 0 11-22-2021 INR Coag (Bld) [Relative time] 3.8 {INR} [facility] Work Phone: Comment on above: Critical Value > 4.0 Whole blood prothrombin time on 11-22-2021 PT Coag (Bld) [Time] 42.8 s 11.7-14.9 [facility] Work Phone: INR in Blood by Coagulation assayon 11-21-2021 INR Coag (Bld) [Relative time] 3.9 {INR} [facility] Work Phone: Laboratory - Coagulationon 0 11-21-2021 PT Coag (PPP) [Time] 37.7 s 11.7-14.9 [facility] Work Phone: Whole blood prothrombin time on 11-21-2021 PT Coag (Bld) [Time] 45.5 s 11.7-14.9 [facility] Work Phone: INR in Blood by Coagulation assayon 11-14-2021 INR Coag (Bld) [Relative time] 3.1 {INR} [facility] Work Phone: Laboratory - Coagulationon 0 11-14-2021 PT Coag (PPP) [Time] 31.4 s 11.7-14.9 [facility] Work Phone: Laboratory - Coagulationon 0 11-08-2021 INR Coag (Bld) [Relative time] 2.5 {INR} [facility] Work Phone: Comment on above: Critical Value > 4.0 Whole blood prothrombin time on 11-08-2021 PT Coag (Bld) [Time] 29.0 s 11.7-14.9 [facility] Work Phone: Basophil percentageon 2021 Chloride [Moles/Vol] 106 mmol/L 98-107 [facility] Work Phone: Glucose [Mass/Vol] 100 mg/dL 74-106 [facility] Work Phone: Comment on above: Fasting Glucose resu lt from 100 to 125 mg/dL suggests IMPAIRED HOMEOSTASIS per A.D.A. criteria. Potassium [Moles/Vol] 3.7 mmol/L 3.5-5.1 [facility] Work Phone: Sodium [Moles/Vol] 140 mmol/L 136-145 [facility] Work Phone: WBC (Bld) [#/Vol] 8.8 10*3/uL 4.4-11.0 [facility] Work Phone: Blood erythrocytes count (nu mber/volume)on 11-04-2021 RBC (Bld) [#/Vol] 4.05 10*6/uL 4.6-6.2 [facility] Work Phone: Blood hemoglobin measurement (mass/volume)on 11-04-2021 Hemoglobin (Bld) [Mass/Vol] 11.1 g/dL 13.0-16.5 [facility] Work Phone: Blood platelet mean volumeon 11-04-2021 Platelet mean volume (Bld) [Entitic vol] 10.8 fL 6.2-12.0 [facility] Work Phone: Determination of erythrocyte mean corpuscular volume (MCV)on 11-04-2021 MCV (RBC) [Entitic vol] 86.9 fL 80-94 [facility] Work Phone: Hematocrit Auto (Bld) [Volum e fraction]on 11-04-2021 Hematocrit (Bld) [Volume fraction] 35.2 % 40-54 [facility] Work Phone: INR in Blood by Coagulation assayon 11-04-2021 INR Coag (Bld) [Relative time] 1.8 {INR} [facility] Work Phone: Laboratory - Chemistry and C hemistry - challengeon 11-04-2021 CO2 [Moles/Vol] 26.0 mmol/L 21.0-32.0 [facility] Work Phone: Urea nitrogen/Creatinine [Mass ratio] 18.3 mg/mg 10-20 [facility] Work Phone: Laboratory - Coagulationon 0 11-04-2021 PT Coag (PPP) [Time] 20.4 s 11.7-14.9 [facility] Work Phone: Laboratory - Hematology and Cell countson 11-04-2021 Erythrocyte distribution width (RBC) [Entitic vol] 48.1 fL 35.1-43.9 [facility] Work Phone: Erythrocyte distribution width (RBC) [Ratio] 15.0 % 11.6-14.6 [facility] Work Phone: MCH (RBC) [Entitic mass] 27.4 pg 27.0-32.0 [facility] Work Phone: MCHC Auto (RBC) [Mass/Vol]on 11-04-2021 MCHC (RBC) [Mass/Vol] 31.5 g/dL 32-36 [facility] Work Phone: No Panel Informationon 11-04 D-Dimer Quantitative (PE/DVT) 0.56 FEU/ug/m 0.27-0.49 [facility] Work Phone: Comment on above: D-Dimer ELEVATED (>0 .49): Additional studies and clinicalassessments are indicated to conclude diagnosis of:Deep Vein Thrombosis (DVT) or Pulmonary Embolism (PE) Estimated GFR (MDRD) Amer 155 mL/min >60 [facility] Work Phone: Comment on above: GFR Calc Estimated GFR (MDRD) Non-Af Amer 128 mL/min >60 [facility] Work Phone: Comment on above: Non- GFR Calc Troponin I High Sensitivity 11 pg/mL 3.0-78.0 [facility] Work Phone: Comment on above: Please Note: New Fadum[place] t Units and Gender Specific Reference Ranges. For more information see Policy Stat Procedure [place] High Sensitivity Troponin (TNIH) and attachments. Platelets bldon 11-04-2021 Platelets (Bld) [#/Vol] 364 10*3/uL 150-450 [facility] Work Phone: Serum or plasma C reactive p rotein measurement (mass/volume)on 11-04-2021 CRP [Mass/Vol] 31.90 mg/L 0.0-3.0 [facility] Work Phone: Comment on above: C-Reactive Protein ( CRP) provides useful information for thediagnosis, therapy and monitoring of inflammatory processesand associated diseases. For the evaluation of Relative Riskfor Cardiovascular Disease, a High Sensitivity CRP (HSCRP)should be ordered. Serum or plasma calcium oral urement (mass/volume)on 11-04-2021 Calcium [Mass/Vol] 9.1 mg/dL 8.5-10.1 [facility] Work Phone: Serum or plasma creatinine m easurement (mass/volume)on 11-04-2021 Creatinine [Mass/Vol] 0.66 mg/dL 0.70-1.30 [facility] Work Phone: Comment on above: The validity of the calculated GFR & GFRAA in patients over 70 years has not been determined. Clinical correlation is essential. Serum or plasma urea nitroge n measurement (mass/volume)on 11-04-2021 Urea nitrogen [Mass/Vol] 12 mg/dL 7-18 [facility] Work Phone: Thin prep Papanicolaou smear with manual screeningon 11-04-2021 Thin prep Papanicolaou smear with manual screening 8 5-15 [facility] Work Phone: Complete Urinalysison 2021 Appearance (U) Clear Normal Clear [facility] Comment on above: Result Comment: . Performed By: #### C UA2 ####[id number] [place], [place] Bacteria Moderate Abnormal Negative [facility] Comment on above: Result Comment: . Performed By: #### C UA2 ####[address] [place], [place] Bilirubin,Urine Negative Normal Negative [facility] [employer] Comment on above: Result Comment: . Performed By: #### C UA2 ####[address] [place], [place] Cast, Hyaline Negative Normal Negative [facility] Comment on above: Result Comment: . Performed By: #### C UA2 ####[address] [place], [place] Color (U) Yellow Normal Lt. Yellow [facility] Comment on above: Result Comment: . Performed By: #### C UA2 ####[id number] [place], [place] Glucose Ql (U) Normal Normal Normal (<70) [facility] Comment on above: Result Comment: . Performed By: #### C UA2 ####[address] [place], [place] Ketone,Urine Negative Normal Negative [facility] Comment on above: Result Comment: . Performed By: #### C UA2 ####[address] [address] [address] [place], [place] Leukocytes,Urine Negative Normal Negative [facility] Comment on above: Result Comment: . Performed By: #### C UA2 ####[address] [place], [place] Mucous Threads Few Normal Negative [facility] Comment on above: Result Comment: . Performed By: #### C UA2 ####[address] [place], [place] Nitrites,Urine Negative Normal Negative [facility] Comment on above: Result Comment: . Performed By: #### C UA2 ####[address] Occult Blood,Urine 0.1 mg/dL Abnormal Negative [facility] Comment on above: Result Comment: . Performed By: #### C UA2 ####[address] [place], [place] pH,Urine 5.5 Normal 5.0-8.0 [facility] Comment on above: Result Comment: . Performed By: #### C UA2 ####[address] Protein (U) [Mass/Vol] 10 mg/dL Abnormal Negative [facility] Comment on above: Result Comment: . Performed By: #### C UA2 ####[address] [place], [place] RBC, Urine 26 - 50 Abnormal 0-2 [facility] Comment on above: Result Comment: . Performed By: #### C UA2 ####[address] Specific [place],Urine 1.023 Normal 1.005 - 1.030 [facility] Comment on above: Result Comment: . Performed By: #### C UA2 ####[address] Squamous Epithelial Negative Normal 3-5 [facility] Comment on above: Result Comment: . Performed By: #### C UA2 ####[facility] [place], [place] Urobilinogen,Urine Normal Normal Normal (0-1) [facility] Comment on above: Result Comment: . Performed By: #### C UA2 ####[id number] [place], [place] WBC, Urine 0 - 2 Normal 0-5 [facility] Comment on above: Result Comment: . Performed By: #### C UA2 ####[id number] [place], [place] Urinalysison 11-01-2021 Appearance (U) Clear Clear [...] /[HPF] [facility] Comment on above: . Specific [place], Urine 1.023 [facility] Comment on above: . Squam Epithel, UA Negative 3 - 5 /[HPF] [facility] Comment on above: . Urobilinogen, Urine Normal Normal ( 0-1) mg/dL [facility] Comment on above: . WBC, UA 0-2 0 - 5 /[HPF] [facility] Comment on above: . Test Performed by [facility], [address] [place] [address] [facility] Basic Metabolic Panelon 06-2 -2021 Anion gap [Moles/Vol] 6 mmol/L Normal 3-[address] [facility] Comment on above: Performed By: #### P T/AP, TROPN, BMP3, HEMDF #### [address] [place], [place] Calcium [Mass/Vol] 9.1 mg/dL Normal 8.4-10.4 [facility] Comment on above: Performed By: #### P T/AP, TROPN, BMP3, HEMDF #### [address] [place], [place] CO2 [Moles/Vol] 28 mmol/L Normal 22-30 [facility] Comment on above: Performed By: #### P T/AP, TROPN, BMP3, HEMDF #### [address] [place], [place] Glucose [Mass/Vol] 120 mg/dL High 70-100 [facility] Comment on above: Performed By: #### P T/AP, TROPN, BMP3, HEMDF #### [address] [place], [place] Urea nitrogen [Mass/Vol] 17 mg/dL Normal 7-17 [facility] Comment on above: Performed By: #### P T/AP, TROPN, BMP3, HEMDF #### [address] [place], [place] Creatinine [Mass/Vol] 0.65 mg/dL Normal 0.52-1.[address] [facility] Comment on above: Performed By: #### P T/AP, TROPN, BMP3, HEMDF #### [address] [place], [place] eGFR OTHER > 90.0 Normal >60 [facility] Comment on above: Result Comment: KDIG [...] #### P T/AP, TROPN, BMP3, HEMDF #### [address] [address] [place], [place] GFR/1.73 sq M.predicted among blacks MDRD (S/P/Bld) [Vol rate/Area] mL/min/{1.73_m2} Normal >60 [facility] Comment on above: Performed By: #### P T/AP, TROPN, BMP3, HEMDF #### [address] Potassium [Moles/Vol] 3.8 mmol/L Normal 3.5-5.[address] [facility] Comment on above: Performed By: #### P T/AP, TROPN, BMP3, HEMDF #### [place] [address] [address] [place], [place] Chloride [Moles/Vol] 101 mmol/L Normal 98-107 [facility] Comment on above: Performed By: #### P T/AP, TROPN, BMP3, HEMDF #### [address] Sodium [Moles/Vol] 134 mmol/L Low 135-145 [facility] Comment on above: Performed By: #### P T/AP, TROPN, BMP3, HEMDF #### [address] Anion gap [Moles/Vol] 6 mmol/L 3 - 13 mmol/L [facility] Calcium [Mass/Vol] 9.1 mg/dL 8.4 - 10. 4 mg/dL [facility] Chloride [Moles/Vol] 101 mmol/L 98 - 10 7 mmol/L [facility] CO2 [Moles/Vol] 28 mmol/L 22 - 30 mmol/L [facility] Creatinine [Mass/Vol] 0.65 mg/dL 0.52 - 1.25 mg/dL [facility] EGFR IF NonAfrican Finnish >90.0 >60 mL/min [facility] Comment on above: [...] - 17 mg/dL [facility] Test Performed by [address] [address] [facility] CBC with Auto Differentialon 10-31-2021 [...] [#/Vol] 9.7 10*3/uL 3.6 - 10.7 10*3/uL [facility] Test Performed by [facility], [address] [place] [address] LAB [facility] CR Abdomen APon 10-31-2021 CR Abdomen AP Patient Name: ANDREW SIFUENTES Diagnostic Radiology ACCESSION EXAM DATE/TIME PROCEDURE ORDERING PROVIDER [id number] 10/31/2021 20:36 EDT CR Abdomen AP [id number] -MYRON DURAN CPT code 77683 Reason For Exam (CR Abdomen AP) vp lab shunt, 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 CHEST PORTABLE [...] Transcribed Date and Time: 10/31/2021 8:49 Normal [facility] CR Chest Portableon 11-01-19 22 CR Chest Portable Patient Name: ANDREW SIFUENTES Diagnostic Radiology ACCESSION EXAM DATE/TIME PROCEDURE ORDERING PROVIDER [id number] 10/31/2021 20:36 EDT CR Chest Portable [id number] MYORN GALINDO CPT code 15700 Reason For Exam (CR Chest Portable) AMS [...] Transcribed Date and Time: 10/31/2021 8:49 Normal [facility] CT HEAD WO CONTRASTon 2021 Patient Name: ANDREW SIFUENTES Computed Tomography ACCESSION EXAM DATE/TIME PROCEDURE ORDERING PROVIDER [id number] 10/31/2021 20:[address] Head or Brain w/o [id number] -MYRON DURAN Contrast CPT code 85146 Reason For Exam (CT Head or Brain w/o Contrast) AMS, previous ROLL MACHINE OPERATOR shunt Report Examination: CT Head Clinical Information: AMS, previous ROLL MACHINE OPERATOR shunt Comparison: 10/26/2021, MRI 10/27/2021 Findings: [...] J Transcribed Date and Time: 10/31/2021 8:54 [facility] Alan Wong MD - 10/31/2021 [id number] Computed Tomography ACCESSION EXAM DATE/TIME PROCEDURE ORDERING PROVIDER [id number] 10/31/2021 20:[address] Head or Brain w/o [id number] -MYRON DURAN Contrast CPT code 23171 Reason For Exam (CT Head or Brain w/o Contrast) AMS, previous ROLL MACHINE OPERATOR shunt Report Examination: CT Head Clinical Information: AMS, previous ROLL MACHINE OPERATOR shunt Comparison: 10/26/2021, MRI 10/27/2021 Findings: [...] Brain w/o Contrast Patient [facility]: [id number] Computed Tomography ACCESSION EXAM DATE/TIME PROCEDURE ORDERING PROVIDER [id number] 10/31/2021 20:[address] Head or Brain w/o [id number] -MYRON DURAN Contrast CPT code 47737 Reason For Exam (CT Head or Brain w/o Contrast) AMS, previous ROLL MACHINE OPERATOR shunt Report Examination: CT Head Clinical Information: AMS, previous ROLL MACHINE OPERATOR shunt Comparison: 10/26/2021, MRI 10/27/2021 Findings: [...] Transcribed Date and Time: 10/31/2021 8:54 Normal [facility] ED Provider Noteon ED Provider Note Emergency Department Encounter [facility] Patient: Andrew Sifuentes : 1950 [...] is cooperative and calm. [facility], he has been more lethargic than normal, [...] [employer] Dante Kim MD 10/31/21 2211 [facility] ED Provider Note [facility] EMERGENCY DEPARTMENT ENCOUNTER Pt Name: Andrew Sifuentes Birthdate 1950 Date of evaluation: 10/31/2021 Provider: Myron Duran MD CHIEF COMPLAINT Chief Complaint Patient presents with ? Altered Mental Status Pt presents to ED via [facility] for complaint listed. Pt is from [facility]. Pt's LKW was 1000 hours [...] have a history of hydrocephalus with a ROLL MACHINE OPERATOR shunt. 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 REVIEW [...] (HCC) ? Kidney stone ? Neuropathy ? ROLL MACHINE OPERATOR (ventriculoperitoneal) shunt status SURGICAL HISTORY Past [...] of Transportati (more content not included)... Normal [facility] EKG 12 Lead - Chest Painon 0 10-31-2021 [facility] Test Date: 2021-10-31 Pat Name: ANDREW SIFUENTES Department: [facility] Room: 40 Gender: M Entry Level Chemist: ANDRES : 1950 Requested By: MYRON DURAN Order Number: [id number] Reading MD: Dante Kim Measurements Intervals Chloride Rate: 91 P: 41 ID: [id number] QRS: 50 QRSD: 147 T: 8 QT: 385 QTc: 474 Interpretive Statements Sinus rhythm Right bundle branch block Electronically Signed On 10-31-2021 20:36:25 EDT by Dante Kim [facility] Dante Kim M D - 10/31/2021 [facility] Test Date: 2021-10-31 Pat Name: ANDREW SIFUENTES Department: [facility] Room: 40 Gender: M Entry Level Chemist: ANDRES : 1950 Requested By: MYRON DURAN Order Number: [id number] Reading MD: Dante Kim Measurements Intervals Chloride Rate: 91 P: 41 ID: [id number] QRS: 50 QRSD: 147 T: 8 QT: 385 QTc: 474 Interpretive Statements Sinus rhythm Right bundle branch block Electronically Signed On 10-31-2021 20:36:[address] [facility] Work Phone: EKG 12 Lead - Chest PainOrde red By: Dante Kim on 10-31-2021 [facility] Work Phone: Hemogram w/ Autodiffon 10-31 Abs Baso Cnt 0.1 10*3/uL Normal 0.0-0.2 [facility] Comment on above: Performed By: #### P T/AP, TROPN, BMP3, HEMDF #### [address] [place], [place] Abs Neutrophile Cnt 6.0 10*3/uL Normal 1.8-7.0 [facility] Comment on above: Performed By: #### P T/AP, TROPN, BMP3, HEMDF #### [address] [address] [place], [place] Basophils/100 WBC (Bld) 1.1 % Normal 0.0-2.0 [facility] Comment on above: Performed By: #### P T/AP, TROPN, BMP3, HEMDF #### [place] [address] [address] [place], [place] Eosinophils (Bld) [#/Vol] 0.2 10*3/uL Normal 0.0-0.5 [facility] Comment on above: Performed By: #### P T/AP, TROPN, BMP3, HEMDF #### [place] [address] [place], [place] Eosinophils/100 WBC (Bld) 2.3 % Normal 1.0-6.0 [facility] Comment on above: Performed By: #### P T/AP, TROPN, BMP3, HEMDF #### [place] [address] [address] [place], [place] Erythrocyte distribution width (RBC) [Ratio] 17.2 % High 11.5-14.5 [facility] Comment on above: Performed By: #### P T/AP, TROPN, BMP3, HEMDF #### [place] [address] [place], [place] Granulocytes/100 WBC (Bld) 61.8 % Normal 40.0-80.0 [facility] Comment on above: Performed By: #### P T/AP, TROPN, BMP3, HEMDF #### [place] [address] [address] [place], [place] Hematocrit (Bld) [Volume fraction] 35.0 % Low 40.0-52.0 [facility] Comment on above: Performed By: #### P T/AP, TROPN, BMP3, HEMDF #### [place] [address] [place] Hemoglobin (Bld) [Mass/Vol] 11.3 g/dL Low 13.0-18.0 [facility] Comment on above: Performed By: #### P T/AP, TROPN, BMP3, HEMDF #### [place] [address] [place], [place] Lymphocytes (Bld) [#/Vol] 2.8 10*3/uL Normal 1.0-4.3 [facility] Comment on above: Performed By: #### P T/AP, TROPN, BMP3, HEMDF #### [place] [address] [address] [place] Lymphocytes/100 WBC (Bld) 29.2 % Normal 20.0-40.0 [facility] Comment on above: Performed By: #### P T/AP, TROPN, BMP3, HEMDF #### [place] [address] [place] MCH (RBC) [Entitic mass] 27.5 pg Normal 26.0-34.0 [facility] Comment on above: Performed By: #### P T/AP, TROPN, BMP3, HEMDF #### [address] MCHC 32.3 % Normal 32.0-36.0 [facility] Comment on above: Performed By: #### P T/AP, TROPN, BMP3, HEMDF #### [place] [address] [place] MCV (RBC) [Entitic vol] 85.0 fL Normal 80.0-98.0 [facility] Comment on above: Performed By: #### P T/AP, TROPN, BMP3, HEMDF #### [address] Monocytes (Bld) [#/Vol] 0.5 10*3/uL Normal 0.0-0.8 [facility] Comment on above: Performed By: #### P T/AP, TROPN, BMP3, HEMDF #### [facility] [address] [place], [place] Monocytes/100 WBC (Bld) 5.6 % Normal 2.0-10.0 [facility] Comment on above: Performed By: #### P T/AP, TROPN, BMP3, HEMDF #### [facility] [address] [place], [place] Platelet mean volume (Bld) [Entitic vol] 8.6 fL Normal 7.4-12.4 [facility] Comment on above: Result Comment: MPV is a calculated measurement using platelet volume ratio. Performed By: #### P T/AP, TROPN, BMP3, HEMDF #### [place] [address] [place], [place] Platelets (Bld) [#/Vol] 348 10*3/uL Normal 140-440 [facility] Comment on above: Performed By: #### P T/AP, TROPN, BMP3, HEMDF #### [place] [address] [place], [place] RBC (Bld) [#/Vol] 4.12 10*6/uL Low 4.40-5.90 [facility] Comment on above: Performed By: #### P T/AP, TROPN, BMP3, HEMDF #### [place] [address] [place] WBC (Bld) [#/Vol] 9.7 10*3/uL Normal 3.6-10.7 [facility] Comment on above: Performed By: #### P T/AP, TROPN, BMP3, HEMDF #### [place] [address] [place], [place] Laboratory - Coagulationon 0 10-31-2021 INR Coag (Bld) [Relative time] 2.0 {INR} [facility] Work Phone: Comment on above: Critical Value > 4.0 No Panel Informationon 10-31 Radiology Study observation (narrative) [facility] Work Phone: PROTIME/INR & PTTon 11-01-19 22 aPTT Coag (Bld) [Time] 39.2 s High 20.0 - 30.[address] [facility] Comment on above: NOTE: The therapeuti c time for Heparin anticoagulation, based on Xa activity inhibition, is an APTT of 46-80 seconds. INR Coag (Bld) [Relative time] 1.9 {INR} High [facility] Comment on above: Recommended Anticoag ulant [...] and review of laboratory results Abnormal [facility] PT Coag (PPP) [Time] 19.8 s High 9.0 - 12.0 s [facility] Comment on above: . Test Performed by [facility], [address] [place] [id number] [place] [address] [facility] Protime AND APTTon 2 aPTT Coag (Bld) [Time] 39.2 s High 20.0-30.5 [facility] Comment on above: Result Comment: NOTE : The therapeutic time for Heparin anticoagulation, based on Xa activity inhibition, is an APTT of 46-80 seconds. Performed By: #### P T/AP, TROPN, BMP3, HEMDF #### [address] [phone] INR 1.9 High 0.9-1.1 [facility] Comment on above: Result Comment: Harry [...] #### P T/AP, TROPN, BMP3, HEMDF #### [address] [address] PT Coag (PPP) [Time] 19.8 s High 9.0-12.0 [facility] Comment on above: Result Comment: . Performed By: #### P T/AP, TROPN, BMP3, HEMDF #### [address] [address] Troponin Ion 10-31-2021 Troponin I.cardiac [Mass/Vol] ng/mL Normal 0.000-0.034 [facility] Comment on above: Result Comment: . Performed By: #### P T/AP, TROPN, BMP3, HEMDF #### [address] [address] Troponin x1on 10-31-2021 Troponin I.cardiac [Mass/Vol] ng/mL 0.000 - 0.034 ng/mL [facility] Comment on above: . Test Performed by [facility], [address] [place] [address] [facility] Whole blood prothrombin time on 10-31-2021 PT Coag (Bld) [Time] 23.7 s 11.7-14.9 [facility] Work Phone: XR ABDOMEN (KUB) (SINGLE AP VIEW)on 10-31-2021 Patient Name: ANDREW LARSEN Diagnostic Radiology ACCESSION EXAM DATE/TIME PROCEDURE ORDERING PROVIDER [id number] 10/31/2021 20:36 EDT CR Abdomen AP [id number] -MYRON DURAN CPT code 97203 Reason For Exam (CR Abdomen AP) vp lab shunt, 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 CHEST PORTABLE [...] WENDELL Transcribed Date and Time: 10/31/2021 8:49 [facility] Huang Reynoso MD - 10/31/2021 Patient Name: [id number] Diagnostic Radiology ACCESSION EXAM DATE/TIME PROCEDURE ORDERING PROVIDER [id number] 10/31/2021 20:36 EDT CR Abdomen AP [id number] -MYRON DURAN CPT code 87083 Reason For Exam (CR Abdomen AP) vp lab shunt, 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 CHEST PORTABLE [...] Radiology ACCESSION EXAM DATE/TIME PROCEDURE ORDERING PROVIDER [id number] 10/31/2021 20:36 EDT CR Chest Portable [id number] MYRON GALINDO CPT code 36342 Reason For Exam (CR Chest Portable) AMS [...] WENDELL Transcribed Date and Time: 10/31/2021 8:49 [facility] Huang Blanton MD - 10/31/2021 Patient Name: ANDREW SIFUENTES Diagnostic Radiology ACCESSION EXAM DATE/TIME PROCEDURE ORDERING PROVIDER [id number] 10/31/2021 20:36 EDT CR Chest Portable [id number] -MYRON DURAN CPT code 73722 Reason For Exam (CR Chest Portable) AMS [...] WENDELL Transcribed Date and Time: 10/31/2021 8:49 [facility] Work Phone: XR CHEST PORTABLEOrdered By: Huang Reynoso on 10-31-2021 [facility] Work Phone: Lupus Anticoagulanton 2021 DRVVT Confirmation Test Not Applicable Negative ratio [facility] Work Phone: dRVVT Screen 38 [facility] Work Phone: Hex Phosph Neut Test Not Applicable Negative NA [facility] Work Phone: Interpretation and review of laboratory results Abnormal [facility] Work Phone: LUPUS INTERPRETATION See Note [...] has not already been performed. Performed by [facility], [address] [place] [id number] [email or web address], Quiana Castro MD - Lab. Director Platelet Neutralization Not Applicable Negative NA [facility] Work Phone: PTT-D Heparin Neutralized 48 [facility] Work Phone: [phone] PTT-LA 55 High [facility] Work Phone: [phone] Reptilase Tm 17.6 <=21.9 sec [facility] Work Phone: [phone] Thrombin Time 25.3 High [facility] Work Phone: [phone] [facility] Work Phone: [phone] Lupus Anticoagulant Reflexiv e Panelon 10-29-2021 aPTT Coag (Bld) [Time] 55 s High 32-48 [facility] Comment on above: Performed By: #### C OVAG #### [facility] [address] [place] [address] aPTT Coag (Bld) [Time] 48 s Normal 32-48 [facility] Comment on above: Performed By: #### C OVAG #### [facility] [address] [place] [address] DRVVT 1:1 Mix Not Applicable Normal 33-44 [facility] Work Phone: Comment on above: Performed By: #### C OVAG #### [facility] [address] [place] [address] dRVVT Confirmation Not Applicable Normal Negative [facility] Comment on above: Performed By: #### C OVAG #### [facility] [address] [place] [address] dRVVT Screen 38 sec Normal 33-44 [facility] Comment on above: Performed By: #### C OVAG #### [facility] [address] [place] [address] Hexagonal Phospholipid Neutral Reflex Not Applicable Normal Negative [facility] Comment on above: Performed By: #### C OVAG #### [facility] [address] [place] [address] Lupus Anticoagulant Interpretation See Note Normal [facility] Comment on above: Result Comment: Lupu [...] has not already been performed. Performed by [facility], [address] [place] [id number] [email or web address], Quiana Castro MD - Lab. Director Performed By: #### C OVAG #### [facility] [address] [place] [address] Platelet Neutralization (PTT-D, Confirm) Not Applicable Normal Negative [facility] Comment on above: Performed By: #### C OVAG #### [facility] [address] [place] [address] PT Coag (PPP) [Time] 14.7 s Normal 12.0-15.5 [facility] Work Phone: Comment on above: Performed By: #### C OVAG #### [facility] [address] [place] [address] PTT-D 1:1 Mix Not Applicable Normal 32-48 [facility] Work Phone: Comment on above: Performed By: #### C OVAG #### [facility] [address] [place] [address] Reptilase Time 17.6 sec Normal <=21.9 [facility] Comment on above: Performed By: #### C OVAG #### [facility] [address] [place] [address] Thrombin Time 25.3 sec High 14.7-19.5 [facility] Comment on above: Performed By: #### C OVAG #### [facility] [address] [place] [address] POCT COVID-19, Antigenon SARS-CoV-2 Nucleocapsid Antigen Negative Negative [facility] Comment on above: A negative result does not rule out the possibility of SARS-CoV-2 infection. NAAT-based methods should be considered for symptomatic patients presenting greater than seven days after onset of symptoms. Method: Lateral flow immunoassay. Fact sheets for healthcare providers and patients can be found at the following sites: https://www.[employer].gov/media/598006/download https://www.[employer].gov/media/745540/download Test Performed by [facility], [address] [place], [place] [address] [place] [address] [facility] Prothrombin Timeon INR 2.7 High 0.9-1.1 [facility] Comment on above: Result Comment: Harry [...] Infarction Performed By: #### P T #### [facility] [address] [place] [address] PT Coag (PPP) [Time] 27.4 s High 9.0-12.0 [facility] Comment on above: Result Comment: . Performed By: #### P T #### [facility] [address] [place] [address] Protime-INRon 10-29-2021 INR Coag (Bld) [Relative time] 2.7 {INR} High [facility] Work Phone: Comment on above: Recommended [...] and review of laboratory results Abnormal [facility] Work Phone: [phone] PT Coag (PPP) [Time] 27.4 s High 9.0 - 12.0 s [employer] Work Phone: [phone] Comment on above: . Test Performed by [facility] [employer] [facility], [address] [place], [place], [place] [address] [facility] LAB [facility] Work Phone: [phone] SARS-CoV-2 Antigenon 022 SARS-CoV-2 Antigen Negative Normal Negative [facility] Comment on above: Result Comment: A negative result does not rule out the possibility of SARS-CoV-2 infection. NAAT-based methods should be considered for symptomatic patients presenting greater than seven days after onset of symptoms. Method: Lateral flow immunoassay. Fact sheets for healthcare providers and patients can be found at the following sites: https://www.[employer].gov/media/771102/download https://www.[employer].gov/media/226164/download Performed By: #### C OVAG #### [facility] [address] [place] [address] CBCon 10-28-2021 Hematocrit (Bld) [Volume fraction] 33.4 % Low 40.0 - 52.0 % [facility] Work Phone: [phone] Hemoglobin (Bld) [Mass/Vol] 11.0 g/dL Low 13.0 - 18.0 g/dL [facility] Work Phone: [phone] Interpretation and review of laboratory results Abnormal [facility] Work Phone: [phone] MCH (RBC) [Entitic mass] 27.8 pg 26.0 - 34.[address] [facility] Work Phone: [phone] MCHC (RBC) [Mass/Vol] 32.8 % 32.0 - 36.0 % [employer] Work Phone: 1() MCV (RBC) [Entitic vol] 84.8 fL 80.0 - 98.0 fL [facility] Work Phone: 1() Platelet distribution width (Bld) [Ratio] 17.1 % High 11.5 - 14.5 % [facility] Work Phone: 1() Platelet mean volume (Bld) [Entitic vol] 8.3 fL 7.4 - 12.4 fL [employer] Work Phone: [phone] Comment on above: MPV is a calculated measurement using platelet volume ratio. Platelets (Bld) [#/Vol] 344 10*3/uL 140 - 440 10*3/uL [facility] Work Phone: [phone] RBC (Bld) [#/Vol] 3.94 10*6/uL Low 4.40 - 5.9 0 10*6/uL [facility] Work Phone: 1() WBC (Bld) [#/Vol] 10.0 10*3/uL 3.6 - 10.7 10*3/uL [employer] Work Phone: [phone] Test Performed by [facility] [address] [place], [place] [address] [facility] LAB [facility] Work Phone: [phone] Comp Metabolic Panelon 10-28 ALP [Catalytic activity/Vol] 103 U/L Normal 38-126 [facility] Comment on above: Performed By: #### C A19O, LUPUS #### The performing lab is in the report. #### NSEO #### [facility] #### HEMDF, LDH3, BMP3, MG3, PT, CEA2 #### [facility] [address] [place] [address] #### B2GPM, B2GPA, B2GPG #### [facility] [address] [place] [address] ALT [Catalytic activity/Vol] 26 U/L Normal 0-49 [facility] Comment on above: Result Comment: The ALT test is performed by an updated assay method. Please note that the reference intervals have been changed and are now sex specific. Performed By: #### C A19O, LUPUS #### The performing lab is in the report. #### NSEO #### [facility] #### HEMDF, LDH3, BMP3, MG3, PT, CEA2 #### [place] [address] [place] [address] #### B2GPM, B2GPA, B2GPG #### [address] AST [Catalytic activity/Vol] 24 U/L Normal 15-46 [facility] Comment on above: Performed By: #### C A19O, LUPUS #### The performing lab is in the report. #### NSEO #### [facility] #### HEMDF, LDH3, BMP3, MG3, PT, CEA2 #### [address] [place], [place] #### B2GPM, B2GPA, B2GPG #### [address] Calcium [Mass/Vol] 9.1 mg/dL Normal 8.4-10.4 [facility] Comment on above: Performed By: #### C A19O, LUPUS #### The performing lab is in the report. #### NSEO #### [facility] #### HEMDF, LDH3, BMP3, MG3, PT, CEA2 #### [address] [place] [address] #### B2GPM, B2GPA, B2GPG #### [address] Glucose [Mass/Vol] 117 mg/dL High 70-100 [facility] Comment on above: Performed By: #### C A19O, LUPUS #### The performing lab is in the report. #### NSEO #### [facility] #### HEMDF, LDH3, BMP3, MG3, PT, CEA2 #### [place] [address] [place] [address] #### B2GPM, B2GPA, B2GPG #### [address] Urea nitrogen [Mass/Vol] 16 mg/dL Normal 7-17 [facility] Comment on above: Performed By: #### C A19O, LUPUS #### The performing lab is in the report. #### NSEO #### [facility] #### HEMDF, LDH3, BMP3, MG3, PT, CEA2 #### [place] [address] [place] [address] #### B2GPM, B2GPA, B2GPG #### [address] Anion gap [Moles/Vol] 5 mmol/L Normal 3-[address] [facility] Comment on above: Performed By: #### C A19O, LUPUS #### The performing lab is in the report. #### NSEO #### [facility] #### HEMDF, LDH3, BMP3, MG3, PT, CEA2 #### [place] [address] [place] [address] #### B2GPM, B2GPA, B2GPG #### [address] Bilirubin [Mass/Vol] 0.4 mg/dL Normal 0.2-1.3 [facility] Comment on above: Performed By: #### C A19O, LUPUS #### The performing lab is in the report. #### NSEO #### [facility] #### HEMDF, LDH3, BMP3, MG3, PT, CEA2 #### [place] [address] [place] [address] #### B2GPM, B2GPA, B2GPG #### [address] CO2 [Moles/Vol] 29 mmol/L Normal 22-30 [facility] Comment on above: Performed By: #### C A19O, LUPUS #### The performing lab is in the report. #### NSEO #### [facility] #### HEMDF, LDH3, BMP3, MG3, PT, CEA2 #### [facility] [address] [place] [address] #### B2GPM, B2GPA, B2GPG #### [address] Creatinine [Mass/Vol] 0.71 mg/dL Normal 0.52-1.[address] [facility] Comment on above: Performed By: #### C A19O, LUPUS #### The performing lab is in the report. #### NSEO #### [facility] #### HEMDF, LDH3, BMP3, MG3, PT, CEA2 #### [facility] [address] [place] [address] #### B2GPM, B2GPA, B2GPG #### [address] eGFR OTHER > 90.0 Normal >60 [facility] Comment on above: Result Comment: KDIG [...] LDH3, BMP3, MG3, PT, CEA2 #### [address] [place] [address] #### B2GPM, B2GPA, B2GPG #### [address] GFR/1.73 sq M.predicted among blacks MDRD (S/P/Bld) [Vol rate/Area] mL/min/{1.73_m2} Normal >60 [facility] Comment on above: Performed By: #### C A19O, LUPUS #### The performing lab is in the report. #### NSEO #### [facility] #### HEMDF, LDH3, BMP3, MG3, PT, CEA2 #### [address] [place] #### B2GPM, B2GPA, B2GPG #### [address] Protein [Mass/Vol] 7.1 g/dL Normal 6.3-8.2 [facility] Comment on above: Performed By: #### C A19O, LUPUS #### The performing lab is in the report. #### NSEO #### [facility] #### HEMDF, LDH3, BMP3, MG3, PT, CEA2 #### [address] [place] #### B2GPM, B2GPA, B2GPG #### [address] Potassium [Moles/Vol] 3.5 mmol/L Normal 3.5-5.[address] [facility] Comment on above: Performed By: #### C A19O, LUPUS #### The performing lab is in the report. #### NSEO #### [facility] #### HEMDF, LDH3, BMP3, MG3, PT, CEA2 #### [address] [place] #### B2GPM, B2GPA, B2GPG #### [address] Sodium [Moles/Vol] 138 mmol/L Normal 135-145 [facility] Comment on above: Performed By: #### C A19O, LUPUS #### The performing lab is in the report. #### NSEO #### [facility] #### HEMDF, LDH3, BMP3, MG3, PT, CEA2 #### [address] [place] [address] #### B2GPM, B2GPA, B2GPG #### [address] Albumin [Mass/Vol] 3.7 g/dL Normal 3.5-5.0 [facility] Comment on above: Performed By: #### C A19O, LUPUS #### The performing lab is in the report. #### NSEO #### [facility] #### HEMDF, LDH3, BMP3, MG3, PT, CEA2 #### [address] [place] [address] #### B2GPM, B2GPA, B2GPG #### [address] Chloride [Moles/Vol] 104 mmol/L Normal 98-107 [facility] Comment on above: Performed By: #### C A19O, LUPUS #### The performing lab is in the report. #### NSEO #### [facility] #### HEMDF, LDH3, BMP3, MG3, PT, CEA2 #### [address] [place] [address] #### B2GPM, B2GPA, B2GPG #### [address] Comprehensive Metabolic Pane kiel 10-28-2021 Albumin [Mass/Vol] 3.7 g/dL 3.5 - 5.0 g/dL [facility] Work Phone: ALP (Bld) [Catalytic activity/Vol] 103 U/L 38 - 126 U/L [facility] Work Phone: ALT [Catalytic activity/Vol] 26 U/L 0 - 49 U/L [facility] Work Phone: Comment on above: The ALT test is perf ormed by an updated assay method. Please note that the reference intervals have been changed and are now sex specific. Anion gap [Moles/Vol] 5 mmol/L 3 - 13 mmol/L [facility] Work Phone: AST [Catalytic activity/Vol] 24 U/L 15 - 46 U/L [facility] Work Phone: [phone] Bilirubin [Mass/Vol] 0.4 mg/dL 0.2 - 1 .3 mg/dL [facility] Work Phone: Calcium [Mass/Vol] 9.1 mg/dL 8.4 - 10. 4 mg/dL [facility] Work Phone: [phone] Chloride [Moles/Vol] 104 mmol/L 98 - 10 7 mmol/L [facility] Work Phone: [phone] CO2 [Moles/Vol] 29 mmol/L 22 - 30 mmol/L [facility] Work Phone: Creatinine [Mass/Vol] 0.71 mg/dL 0.52 - 1.25 mg/dL [facility] Work Phone: EGFR IF NonAfrican Finnish >90.0 >60 mL/min [facility] Work Phone: Comment on above: KDIGO [...] 7.1 g/dL 6.3 - 8.2 g/dL [facility] Work Phone: GFR/1.73 sq M.predicted among blacks MDRD (S/P/Bld) [Vol rate/Area] mL/min/{1.73_m2} >60 mL/min [facility] Work Phone: Glucose [Mass/Vol] 117 mg/dL High 70 - 100 mg/dL [facility] Work Phone: Interpretation and review of laboratory results Abnormal [facility] Work Phone: Potassium [Moles/Vol] 3.5 mmol/L 3.5 - 5.1 mmol/L [facility] Work Phone: Sodium [Moles/Vol] 138 mmol/L 135 - 145 mmol/L [facility] Work Phone: Urea nitrogen (BldV) [Mass/Vol] 16 mg/dL 7 - 17 mg/dL [facility] Work Phone: Test Performed by [facility], [address] [place], [place] [id number] [place] [address] [facility] Work Phone: Hemogramon 10-28-2021 Erythrocyte distribution width (RBC) [Ratio] 17.1 % High 11.5-14.5 [facility] Comment on above: Performed By: #### C A19O, LUPUS #### The performing lab is in the report. #### NSEO #### [facility] #### HEMDF, LDH3, BMP3, MG3, PT, CEA2 #### [facility] [address] [place] [address] #### B2GPM, B2GPA, B2GPG #### [facility] [employer] [facility] [address] [place] [address] Hematocrit (Bld) [Volume fraction] 33.4 % Low 40.0-52.0 [facility] Comment on above: Performed By: #### C A19O, LUPUS #### The performing lab is in the report. #### NSEO #### [facility] #### HEMDF, LDH3, BMP3, MG3, PT, CEA2 #### [facility] [address] [place] [address] #### B2GPM, B2GPA, B2GPG #### [address] Hemoglobin (Bld) [Mass/Vol] 11.0 g/dL Low 13.0-18.0 [facility] Comment on above: Performed By: #### C A19O, LUPUS #### The performing lab is in the report. #### NSEO #### [facility] #### HEMDF, LDH3, BMP3, MG3, PT, CEA2 #### [address] [place] #### B2GPM, B2GPA, B2GPG #### [address] MCH (RBC) [Entitic mass] 27.8 pg Normal 26.0-34.0 [facility] Comment on above: Performed By: #### C A19O, LUPUS #### The performing lab is in the report. #### NSEO #### [facility] #### HEMDF, LDH3, BMP3, MG3, PT, CEA2 #### [address] [place] #### B2GPM, B2GPA, B2GPG #### [address] MCHC 32.8 % Normal 32.0-36.0 [facility] Comment on above: Performed By: #### C A19O, LUPUS #### The performing lab is in the report. #### NSEO #### [facility] #### HEMDF, LDH3, BMP3, MG3, PT, CEA2 #### [place] [address] [place] #### B2GPM, B2GPA, B2GPG #### [facility] [address] [place], [place] MCV (RBC) [Entitic vol] 84.8 fL Normal 80.0-98.0 [facility] Comment on above: Performed By: #### C A19O, LUPUS #### The performing lab is in the report. #### NSEO #### [facility] #### HEMDF, LDH3, BMP3, MG3, PT, CEA2 #### [facility] [address] [place] [address] #### B2GPM, B2GPA, B2GPG #### [address] Platelet mean volume (Bld) [Entitic vol] 8.3 fL Normal 7.4-12.4 [facility] Comment on above: Result Comment: MPV is a calculated measurement using platelet volume ratio. Performed By: #### C A19O, LUPUS #### The performing lab is in the report. #### NSEO #### [facility] #### HEMDF, LDH3, BMP3, MG3, PT, CEA2 #### [facility] [address] [place], [place] #### B2GPM, B2GPA, B2GPG #### [address] Platelets (Bld) [#/Vol] 344 10*3/uL Normal 140-440 [facility] Comment on above: Performed By: #### C A19O, LUPUS #### The performing lab is in the report. #### NSEO #### [facility] #### HEMDF, LDH3, BMP3, MG3, PT, CEA2 #### [facility] [address] [place] [address] #### B2GPM, B2GPA, B2GPG #### [address] RBC (Bld) [#/Vol] 3.94 10*6/uL Low 4.40-5.90 [facility] Comment on above: Performed By: #### C A19O, LUPUS #### The performing lab is in the report. #### NSEO #### [facility] #### HEMDF, LDH3, BMP3, MG3, PT, CEA2 #### [facility] [address] [place] [address] #### B2GPM, B2GPA, B2GPG #### [address] [address] WBC (Bld) [#/Vol] 10.0 10*3/uL Normal 3.6-10.7 [facility] Comment on above: Performed By: #### C A19O, LUPUS #### The performing lab is in the report. #### NSEO #### [facility] #### HEMDF, LDH3, BMP3, MG3, PT, CEA2 #### [facility] [address] [place] [address] #### B2GPM, B2GPA, B2GPG #### [address] [address] Neuron Specific Enolaseon Neuron Specific Enolase 20.8 Normal [facility] Comment on above: Result Comment: Neur on Specific Enolase, Serum 20.8 ng/mL H (Ref Interval: <=12.7) NSE and Hgb are elevated in the specimen. The elevated NSE may be a result of hemolysis as NSE is expressed in red blood cells. Interpret results with caution. INTERPRETIVE INFORMATION: Neuron Specific Enolase in Serum This assay is performed using the [employer] NSE Kryptor Immunoassay. Results obtained with different assay methods or kits cannot be used interchangeably. Results cannot be interpreted as absolute evidence of the presence or absence of malignant disease. This test was developed and its performance characteristics determined by [facility]. It has not been cleared or approved by the [place] Food and Drug Administration. This test was performed in a CLIA certified laboratory and is intended for clinical purposes. Performed By: #### C OVAG #### [facility] [address] [place] [address] Neuron specific enolase (NSE )on 10-28-2021 Neuron Specific Enolase 20.8 [facility] Work Phone: Comment on above: Neuron Specific Enol ase, Serum 20.8 ng/mL H (Ref Interval: <=12.7) NSE and Hgb are elevated in the specimen. The elevated NSE may be a result of hemolysis as NSE is expressed in red blood cells. Interpret results with caution. INTERPRETIVE INFORMATION: Neuron Specific Enolase in Serum This assay is performed using the [employer] NSE Kryptor Immunoassay. Results obtained with different assay methods or kits cannot be used interchangeably. Results cannot be interpreted as absolute evidence of the presence or absence of malignant disease. This test was developed and its performance characteristics determined by [facility]. It has not been cleared or approved by the US Food and Drug Administration. This test was performed in a CLIA certified laboratory and is intended for clinical purposes. 1 [facility] Work Phone: Prothrombin Timeon 2 INR 3.1 High 0.9-1.1 [facility] Comment on above: Result Comment: Harry [...] prevent Myocardial Infarction Performed By: #### C A19O LUPUS #### The performing lab is in the report. #### NSEO #### [facility] #### HEMDF, LDH3, BMP3, MG3, PT, CEA2 #### [facility] [address] [place] [address] #### B2GPM, B2GPA, B2GPG #### [facility] [address] [place] [address] PT Coag (PPP) [Time] 30.8 s High 9.0-12.0 [facility] Comment on above: Result Comment: . Performed By: #### C A19O, LUPUS #### The performing lab is in the report. #### NSEO #### [facility] #### HEMDF, LDH3, BMP3, MG3, PT, CEA2 #### [facility] [address] [place] [address] #### B2GPM, B2GPA, B2GPG #### [facility] [employer] [facility] [address] [place] [address] Protime-INRon 10-28-2021 INR Coag (Bld) [Relative time] 3.1 {INR} High [facility] Work Phone: Comment on above: Recommended [...] and review of laboratory results Abnormal [facility] Work Phone: PT Coag (PPP) [Time] 30.8 s High 9.0 - 12.0 s [facility] Work Phone: Comment on above: . Test Performed by [facility], [address] [place], [address] [facility] Work Phone: MRI BRAIN WO CONTRASTon 10-06 Patient Name: [id number] Magnetic Resonance Imaging ACCESSION EXAM DATE/TIME PROCEDURE ORDERING PROVIDER [id number] 10/27/2021 13:14 EDT MRI Brain w/o Contrast UNASSIGNED, UNASSIGNED CPT code 15327 Reason For Exam (MRI Brain w/o Contrast) stroke Patient has ROLL MACHINE OPERATOR shunt in place, please follow Radiology [...] Transcribed Date and Time: 10/27/2021 2:39 [facility] Venus Loyd MD - 10/27/2021 Patient Name: ANDREW SIFUENTES Magnetic Resonance Imaging ACCESSION EXAM DATE/TIME PROCEDURE ORDERING PROVIDER [id number] 10/27/2021 13:14 EDT MRI Brain w/o Contrast UNASSIGNED, UNASSIGNED CPT code 60882 Reason For Exam (MRI Brain w/o Contrast) stroke Patient has ROLL MACHINE OPERATOR shunt in place, please follow Radiology [...] Imaging ACCESSION EXAM DATE/TIME PROCEDURE ORDERING PROVIDER [id number] 10/27/2021 13:14 EDT MRI Brain w/o Contrast UNASSIGNED, UNASSIGNED CPT code 42729 Reason For Exam (MRI Brain w/o Contrast) stroke Patient has ROLL MACHINE OPERATOR shunt in place, please follow Radiology [...] Transcribed Date and Time: 10/27/2021 2:39 Normal [facility] Prothrombin Timeon 2 INR 2.1 High 0.9-1.1 [facility] Comment on above: Result Comment: Harry [...] Infarction Performed By: #### P T #### [facility] [address] [place] [address] PT Coag (PPP) [Time] 21.9 s High 9.0-12.0 [facility] Work Phone: Comment on above: . Result Comment: . Performed By: #### P T #### [facility] [address] [place] [address] Protime-INRon 10-27-2021 INR Coag (Bld) [Relative time] 2.1 {INR} High [facility] Work Phone: Comment on above: Recommended [...] and review of laboratory results Abnormal [facility] Work Phone: Test Performed by [facility], [address] [place], [place] [address] [facility] LAB [facility] Work Phone: CT HEAD WO CONTRASTon 2021 Patient Name: ANDREW SIFUENTES Computed Tomography ACCESSION EXAM DATE/TIME PROCEDURE ORDERING PROVIDER [id number] 10/26/2021 11:[address] Head or Brain w/o JUNIE PINEDA, SARINA Contrast CPT code 42406 Reason For Exam (CT Head or Brain w/o Contrast) hydrocephalus. thank you Report CLINICAL INFORMATION: Hydrocephalus. Shunt. 3 mm axial cuts through the head are obtained without IV contrast. The examination is compared to a previous study dated 06/29/2014. FINDINGS: Old ROLL MACHINE OPERATOR shunt tubing is noted bilaterally. The [...] are clear. IMPRESSION: 1. Old and new ROLL MACHINE OPERATOR shunt tubing. 2. No hydrocephalus. 3. Atrophy and evidence of small-vessel ischemic disease. 4. No CT evidence of an acute intracranial process. Report Dictated on --- Final --- Dictating Physician: MD SOLANO JEFFREY Signed Date and Time: 10/26/2021 11:42 am Signed by: MD SOLANO JEFFREY Transcribed Date and Time: 10/26/2021 11:43 [facility] Albert Solano MD - 10/26/2021 Patient Name: ANDREW SIFUENTES Computed Tomography ACCESSION EXAM DATE/TIME PROCEDURE ORDERING PROVIDER [id number] 10/26/2021 11:[address] Head or Brain w/o JUNIE PINEDA, SARINA Contrast CPT code 92097 Reason For Exam (CT Head or Brain w/o Contrast) hydrocephalus. thank you Report CLINICAL INFORMATION: Hydrocephalus. Shunt. 3 mm axial cuts through the head are obtained without IV contrast. The examination is compared to a previous study dated 06/29/2014. FINDINGS: Old ROLL MACHINE OPERATOR shunt tubing is noted bilaterally. The [...] are clear. IMPRESSION: 1. Old and new ROLL MACHINE OPERATOR shunt tubing. 2. No hydrocephalus. 3. [...] Tomography ACCESSION EXAM DATE/TIME PROCEDURE ORDERING PROVIDER [id number] 10/26/2021 11:[address] Head or Brain w/o JUNIE PINEDA, SARINA Contrast CPT code 74637 Reason For Exam (CT Head or Brain w/o Contrast) hydrocephalus. thank you Report CLINICAL INFORMATION: Hydrocephalus. Shunt. 3 mm axial cuts through the head are obtained without IV contrast. The examination is compared to a previous study dated 06/29/2014. FINDINGS: Old ROLL MACHINE OPERATOR shunt tubing is noted bilaterally. The [...] are clear. IMPRESSION: 1. Old and new ROLL MACHINE OPERATOR shunt tubing. 2. No hydrocephalus. 3. Atrophy and evidence of small-vessel ischemic disease. 4. No CT evidence of an acute intracranial process. 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 Barreto REASON FOR EXAM: seizures HISTORY: Andrew Sifuentes is a 71 y.o. 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 At present patient is awake, follows commands, was able to tell his name, and that he was in hospital but not oriented to time. Per documentation patient had NCSE in May 2021, was on Vimpat, but it was discontinued as there was no evidence of recurrent seizures in July 2021 by Neurology at [facility], per daughter patient was on Dilantin [...] 7.5 mg 7.5 mg Oral Once Andres Sheriadn MD levETIRAcetam (KEPPRA) 750 mg in sodium [...] May Cash MD 105 mg at 10/26/21 0894 TECHNICAL ASPECTS: This routine scalp EEG study with video was carried out at [facility]. Scalp electrodes were positioned in person by an agricultural research technologist, following patient education, according to the 10-20 International system of electrode placement and maintained for integrity and quality of the recording. EEG data with video was recorded continuously and digitally stored. The agricultural research technologist reviewed all automated detections and manual [...] No normal vari (more content not included)... [facility] Work Phone: [employer] Work Phone: No Panel Informationon 10-26 Radiology Study observation (narrative) [facility] Work Phone: Prothrombin Timeon 2 INR 1.9 High 0.9-1.1 [facility] [employer] [facility] Comment on above: Result Comment: Harry [...] Infarction Performed By: #### C OVAG #### [facility] [address] [place] [address] PT Coag (PPP) [Time] 19.7 s High 9.0-12.0 [facility] Comment on above: Result Comment: . Performed By: #### C OVAG #### [facility] [address] [place] [address] Protime-INRon 10-26-2021 INR Coag (Bld) [Relative time] 1.9 {INR} High [facility] Work Phone: Comment on above: Recommended [...] and review of laboratory results Abnormal [facility] Work Phone: PT Coag (PPP) [Time] 19.7 s High 9.0 - 12.0 s [facility] Work Phone: Comment on above: . Test Performed by [facility], [address] [place], [place], [place] [address] [facility] LAB [facility] Work Phone: CA 19-9on 10-25-2021 CA 19-9 17 U/mL Normal <=35 [facility] Work Phone: Comment on above: INTERPRETIVE [...] or absence of malignant disease. Performed By: [facility] [address] [place] [address] [employer] Director [employer]: Quiana Castro MD Result Comment: INTE RPRETIVE [...] or absence of malignant disease. Performed By: [facility] [address] [place] [address] [employer]: Quiana Castro MD Performed By: #### C OVAG #### [facility] [employer] [facility] [address] [place] [address] Cancer Antigen 19-9on 2021 [facility] Work Phone: Prothrombin Timeon INR 1.5 High 0.9-1.1 [facility] [employer] [facility] Comment on above: Result Comment: Harry [...] Infarction Performed By: #### P T #### [facility] [address] [place] [address] PT Coag (PPP) [Time] 15.6 s High 9.0-12.0 [facility] [employer] [facility] Comment on above: Result Comment: . Performed By: #### P T #### [facility] [employer] [facility] [address] [place] [address] Protime-INRon 10-25-2021 INR Coag (Bld) [Relative time] 1.5 {INR} High [facility] Work Phone: Comment on above: Recommended [...] and review of laboratory results Abnormal [facility] Work Phone: PT Coag (PPP) [Time] 15.6 s High 9.0 - 12.0 s [facility] Work Phone: Comment on above: . Test Performed by [facility], [address] [place], [place], [place] [id number] [place] [address] LAB [facility] Work Phone: B-2 Glycoprotein (IGA)on Beta-2 Glyco 1 IgA <2.0 U/mL [facility] Work Phone: Comment on above: Interpretive Informa tion: Results equal to or greater than 20 U/mL = POSITIVE Results less than 20 U/mL = NEGATIVE B2 Glycoprotein I (IgM) Abon 10-24-2021 Beta-2 Glyco 1 IgM <1.5 U/mL [facility] Work Phone: Comment on above: Interpretive Informa tion: Results equal to or greater than 20 U/mL = POSITIVE Results less than 20 U/mL = NEGATIVE B2 Glycoprotein I Igg Abon 0 10-24-2021 Beta-2 Glyco 1 IgG <1.4 U/mL [facility] Work Phone: Comment on above: Interpretive Informa tion: Results equal to or greater than 20 U/mL = POSITIVE Results less than 20 U/mL = NEGATIVE Basic Metabolic Panelon 10-06 Anion gap [Moles/Vol] 8 mmol/L Normal 3-[address] [facility] Comment on above: Performed By: #### C A19O, LUPUS #### The performing lab is in the report. #### NSEO #### [facility] #### HEMDF, LDH3, BMP3, MG3, PT, CEA2 #### [facility] [address] [place] [address] #### B2GPM, B2GPA, B2GPG #### [facility] [employer] [facility] [address] [place] [address] Calcium [Mass/Vol] 8.8 mg/dL Normal 8.4-10.4 [facility] Comment on above: Performed By: #### C A19O, LUPUS #### The performing lab is in the report. #### NSEO #### [facility] #### HEMDF, LDH3, BMP3, MG3, PT, CEA2 #### [place] [address] [place] [address] #### B2GPM, B2GPA, B2GPG #### [address] CO2 [Moles/Vol] 25 mmol/L Normal 22-30 [facility] Comment on above: Performed By: #### C A19O, LUPUS #### The performing lab is in the report. #### NSEO #### [facility] #### HEMDF, LDH3, BMP3, MG3, PT, CEA2 #### [address] [place] [address] #### B2GPM, B2GPA, B2GPG #### [address] Creatinine [Mass/Vol] 0.74 mg/dL Normal 0.52-1.[address] [facility] Comment on above: Performed By: #### C A19O, LUPUS #### The performing lab is in the report. #### NSEO #### [facility] #### HEMDF, LDH3, BMP3, MG3, PT, CEA2 #### [address] [place] [address] #### B2GPM, B2GPA, B2GPG #### [address] eGFR OTHER > 90.0 Normal >60 [facility] Comment on above: Result Comment: KDIG [...] HEMDF, LDH3, BMP3, MG3, PT, CEA2 #### [facility] [address] [place] [address] #### B2GPM, B2GPA, B2GPG #### [address] [address] GFR/1.73 sq M.predicted among blacks MDRD (S/P/Bld) [Vol rate/Area] mL/min/{1.73_m2} Normal >60 [facility] Comment on above: Performed By: #### C A19O, LUPUS #### The performing lab is in the report. #### NSEO #### [facility] #### HEMDF, LDH3, BMP3, MG3, PT, CEA2 #### [facility] [address] [place], [place] #### B2GPM, B2GPA, B2GPG #### [address] [address] Glucose [Mass/Vol] 116 mg/dL High 70-100 [facility] Comment on above: Performed By: #### C A19O, LUPUS #### The performing lab is in the report. #### NSEO #### [facility] #### HEMDF, LDH3, BMP3, MG3, PT, CEA2 #### [facility] [address] [place] [address] #### B2GPM, B2GPA, B2GPG #### [address] Urea nitrogen [Mass/Vol] 19 mg/dL High 7-17 [facility] Comment on above: Performed By: #### C A19O, LUPUS #### The performing lab is in the report. #### NSEO #### [facility] #### HEMDF, LDH3, BMP3, MG3, PT, CEA2 #### [facility] [address] [place] [address] #### B2GPM, B2GPA, B2GPG #### [address] Chloride [Moles/Vol] 107 mmol/L Normal 98-107 [facility] Comment on above: Performed By: #### C A19O, LUPUS #### The performing lab is in the report. #### NSEO #### [facility] #### HEMDF, LDH3, BMP3, MG3, PT, CEA2 #### [place] [address] [place], [place] #### B2GPM, B2GPA, B2GPG #### [address] Potassium [Moles/Vol] 3.9 mmol/L Normal 3.5-5.[address] [facility] Comment on above: Performed By: #### C A19O, LUPUS #### The performing lab is in the report. #### NSEO #### [facility] #### HEMDF, LDH3, BMP3, MG3, PT, CEA2 #### [facility] [address] [place] [address] #### B2GPM, B2GPA, B2GPG #### [address] Sodium [Moles/Vol] 140 mmol/L Normal 135-145 [facility] Comment on above: Performed By: #### C A19O, LUPUS #### The performing lab is in the report. #### NSEO #### [facility] #### HEMDF, LDH3, BMP3, MG3, PT, CEA2 #### [facility] [address] [place] [address] #### B2GPM, B2GPA, B2GPG #### [facility] [address] [place] [address] Anion gap [Moles/Vol] 8 mmol/L 3 - 13 mmol/L [facility] Calcium [Mass/Vol] 8.8 mg/dL 8.4 - 10. 4 mg/dL [facility] Chloride [Moles/Vol] 107 mmol/L 98 - 10 7 mmol/L [facility] CO2 [Moles/Vol] 25 mmol/L 22 - 30 mmol/L [facility] Creatinine [Mass/Vol] 0.74 mg/dL 0.52 - 1.25 mg/dL [facility] EGFR IF NonAfrican Finnish >90.0 >60 mL/min [facility] Comment on above: [...] - 17 mg/dL [facility] Test Performed by [facility], [address] [place], [place] [address] [facility] Beta-2 Glycoprotein I IgAon 10-24-2021 Beta-2 Glycoprotein I IgA < 2.0 Normal [facility] Comment on above: Result Comment: Inte rpretive Information: Results equal to or greater than 20 U/mL = POSITIVE Results less than 20 U/mL = NEGATIVE Performed By: #### C OVAG #### [facility] [address] [place] [address] Beta-2 Glycoprotein I IgGon 10-24-2021 Beta-2 Glycoprotein I IgG < 1.4 Normal [facility] Comment on above: Result Comment: Inte rpretive Information: Results equal to or greater than 20 U/mL = POSITIVE Results less than 20 U/mL = NEGATIVE Performed By: #### C OVAG #### [facility] [address] [place] [address] Beta-2 Glycoprotein I IgMon 10-24-2021 Beta-2 Glycoprotein I IgM < 1.5 Normal [facility] Comment on above: Result Comment: Inte rpretive Information: Results equal to or greater than 20 U/mL = POSITIVE Results less than 20 U/mL = NEGATIVE Performed By: #### C OVAG #### [facility] [address] [place] [address] No Panel Informationon 10-24 [facility] Test Performed by [facility], [address] [place], [place] [address] [place] [address] LAB [facility] Work Phone: PROTEIN C FUNCTIONALon 10-24 Interpretation and review of laboratory results Abnormal [facility] Protein C-Functional 185 % High 83 - [...] reference intervals for this test in the [facility] Test Directory ([employer]). Performed by [facility], [address] [place] [address] www.[employer], Quiana Castro MD - Lab. Director Protein C, Functionalon 10-06 Protein C, Functional 185 % High 83-[address] [facility] Comment on above: Result Comment: INTE [...] reference intervals for this test in the [facility] Test [facility] ([employer]). Performed by [facility], [address] [facility], [facility],[place] [id number] [email or web address].[employer], Quiana Castro MD - Lab. Director Performed By: #### P T #### [facility] [address] [place] [address] Protein S, Functionalon 10-06 Protein S, Functional [...] reference intervals for this test in the [facility] ([employer]). Performed by [facility], [address] [facility], [facility] [place] [address] www.[employer], Quiana Castro MD - Lab. Director Result [...] reference intervals for this test in the [facility] Test [facility] ([employer]). Performed by [facility], [address] [facility] [place] [address] www.[employer], Quiana Castro MD - Lab. Director Performed By: #### P T #### [facility] [address] [place] [address] Prothrombin Timeon INR 1.2 High 0.9-1.1 [facility] Comment on above: Result Comment: Harry [...] is in the report. #### NSEO #### [facility] #### HEMDF, LDH3, BMP3, MG3, PT, CEA2 #### [address] [place] [address] #### B2GPM, B2GPA, B2GPG #### [address] [address] PT Coag (PPP) [Time] 12.6 s High 9.0-12.0 [facility] Comment on above: Result Comment: . Performed By: #### C A19O, LUPUS #### The performing lab is in the report. #### NSEO #### [facility] #### HEMDF, LDH3, BMP3, MG3, PT, CEA2 #### [facility] [address] [place] [address] #### B2GPM, B2GPA, B2GPG #### [address] [address] Protime-INRon 10-24-2021 INR Coag (Bld) [Relative time] 1.2 {INR} High [facility] Comment on above: Recommended Anticoag ulant [...] and review of laboratory results Abnormal [facility] PT Coag (PPP) [Time] 12.6 s High 9.0 - 12.0 s [facility] Comment on above: . Test Performed by [facility], [address] [facility] Basic Metabolic Panel 10-05 Anion gap [Moles/Vol] 10 mmol/L Normal 3-[address] [facility] Comment on above: Performed By: #### C A19O, LUPUS #### The performing lab is in the report. #### NSEO #### [facility] #### HEMDF, LDH3, BMP3, MG3, PT, CEA2 #### [facility] [address] [facility] [place] [address] #### B2GPM, B2GPA, B2GPG #### [address] [address] Calcium [Mass/Vol] 9.6 mg/dL Normal 8.4-10.4 [facility] Comment on above: Performed By: #### C A19O, LUPUS #### The performing lab is in the report. #### NSEO #### [facility] #### HEMDF, LDH3, BMP3, MG3, PT, CEA2 #### [facility] [address] [place] [address] #### B2GPM, B2GPA, B2GPG #### [address] [address] CO2 [Moles/Vol] 27 mmol/L Normal 22-30 [facility] Comment on above: Performed By: #### C A19O, LUPUS #### The performing lab is in the report. #### NSEO #### [facility] #### HEMDF, LDH3, BMP3, MG3, PT, CEA2 #### [place] [address] [place] [address] #### B2GPM, B2GPA, B2GPG #### [address] [address] Glucose [Mass/Vol] 109 mg/dL High 70-100 [facility] Comment on above: Performed By: #### C A19O, LUPUS #### The performing lab is in the report. #### NSEO #### [facility] #### HEMDF, LDH3, BMP3, MG3, PT, CEA2 #### [address] [place] [address] #### B2GPM, B2GPA, B2GPG #### [address] Urea nitrogen [Mass/Vol] 18 mg/dL High 7-17 [facility] Comment on above: Performed By: #### C A19O, LUPUS #### The performing lab is in the report. #### NSEO #### [facility] #### HEMDF, LDH3, BMP3, MG3, PT, CEA2 #### [address] [place] [place] [address] #### B2GPM, B2GPA, B2GPG #### [address] [address] Creatinine [Mass/Vol] 0.82 mg/dL Normal 0.52-1.[address] [facility] Comment on above: Performed By: #### C A19O, LUPUS #### The performing lab is in the report. #### NSEO #### [facility] #### HEMDF, LDH3, BMP3, MG3, PT, CEA2 #### [address] [place] [place] [address] #### B2GPM, B2GPA, B2GPG #### [facility] [address] [place] [address] GFR/1.73 sq M.predicted among blacks MDRD (S/P/Bld) [Vol rate/Area] mL/min/{1.73_m2} Normal >60 [facility] Comment on above: Performed By: #### C A19O, LUPUS #### The performing lab is in the report. #### NSEO #### [facility] #### HEMDF, LDH3, BMP3, MG3, PT, CEA2 #### [facility] [employer] [facility] [address] [place] [address] #### B2GPM, B2GPA, B2GPG #### [address] [address] GFR/1.73 sq M.predicted among non-blacks MDRD (S/P/Bld) [Vol rate/Area] 89.9 mL/min/{1.73_m2} Normal >60 [facility] Comment on above: Result Comment: KDIG [...] HEMDF, LDH3, BMP3, MG3, PT, CEA2 #### [place] [address] [place] [address] #### B2GPM, B2GPA, B2GPG #### [address] Chloride [Moles/Vol] 104 mmol/L Normal 98-107 [facility] Comment on above: Performed By: #### C A19O, LUPUS #### The performing lab is in the report. #### NSEO #### [facility] #### HEMDF, LDH3, BMP3, MG3, PT, CEA2 #### [place] [address] [place] [address] #### B2GPM, B2GPA, B2GPG #### [address] Potassium [Moles/Vol] 3.9 mmol/L Normal 3.5-5.[address] [facility] Comment on above: Performed By: #### C A19O, LUPUS #### The performing lab is in the report. #### NSEO #### [facility] #### HEMDF, LDH3, BMP3, MG3, PT, CEA2 #### [place] [address] [place] [address] #### B2GPM, B2GPA, B2GPG #### [address] Sodium [Moles/Vol] 142 mmol/L Normal 135-145 [facility] Comment on above: Performed By: #### C A19O, LUPUS #### The performing lab is in the report. #### NSEO #### [facility] #### HEMDF, LDH3, BMP3, MG3, PT, CEA2 #### [place] [address] [place] [address] #### B2GPM, B2GPA, B2GPG #### [address] Anion gap [Moles/Vol] 10 mmol/L 3 - 13 mmol/L [facility] Work Phone: Calcium [Mass/Vol] 9.6 mg/dL 8.4 - 10. 4 mg/dL [facility] Work Phone: ) [phone] Chloride [Moles/Vol] 104 mmol/L 98 - 10 7 mmol/L [facility] Work Phone: ) [phone] CO2 [Moles/Vol] 27 mmol/L 22 - 30 mmol/L [facility] Work Phone: 222 Creatinine [Mass/Vol] 0.82 mg/dL 0.52 - 1.25 mg/dL [facility] Work Phone: ) [phone] EGFR IF NonAfrican Finnish 89.9 mL/min >60 [facility] Work Phone: Comment on above: KDIGO guidelines [...] rate/Area] mL/min/{1.73_m2} >60 mL/min [facility] Work Phone: [phone] Glucose [Mass/Vol] 109 mg/dL High 70 - 100 mg/dL [facility] Work Phone: [phone] Interpretation and review of laboratory results Abnormal [facility] Work Phone: [phone] Potassium [Moles/Vol] 3.9 mmol/L 3.5 - 5.1 mmol/L [facility] Work Phone: [phone] Sodium [Moles/Vol] 142 mmol/L 135 - 145 mmol/L [facility] Work Phone: [phone] Urea nitrogen (BldV) [Mass/Vol] 18 mg/dL High 7 - 17 mg/dL [facility] Work Phone: [phone] CBC with Auto Differentialon 10-23-2021 Absolute Baso # 0.1 10*3/uL 0.0 - 0.2 10*3/uL [facility] Work Phone: [phone] Absolute Neut # 6.6 10*3/uL 1.8 - 7.0 10*3/uL [facility] Work Phone: [phone] Basophils/100 WBC (Bld) 1.1 % 0.0 - 2.0 % [facility] Work Phone: [phone] Eosinophils (Bld) [#/Vol] 0.4 10*3/uL 0.0 - 0.5 10*3/uL [facility] Work Phone: [phone] Eosinophils/100 WBC (Bld) 3.9 % 1.0 - 6.0 % [facility] Work Phone: [phone] Granulocytes/100 WBC (Bld) 64.0 % 40.0 - 80.0 % [facility] Work Phone: [phone] Hematocrit (Bld) [Volume fraction] 35.1 % Low 40.0 - 52.0 % [facility] Work Phone: [phone] Hemoglobin (Bld) [Mass/Vol] 11.6 g/dL Low 13.0 - 18.0 g/dL [facility] Work Phone: [phone] Interpretation and review of laboratory results Abnormal [facility] Work Phone: [phone] Lymphocytes (Bld) [#/Vol] 2.6 10*3/uL 1.0 - 4.3 10*3/uL [facility] Work Phone: [phone] Lymphocytes/100 WBC (Bld) 25.0 % 20.0 - 40.0 % [facility] Work Phone: [phone] MCH (RBC) [Entitic mass] 28.4 pg 26.0 - 34.0 pg [facility] Work Phone: [phone] MCHC (RBC) [Mass/Vol] 33.1 % 32.0 - 36.0 % [facility] Work Phone: [phone] MCV (RBC) [Entitic vol] 85.9 fL 80.0 - 98.0 fL [facility] Work Phone: [phone] Monocytes (Bld) [#/Vol] 0.6 10*3/uL 0.0 - 0.8 10*3/uL [facility] Work Phone: [phone] Monocytes/100 WBC (Bld) 6.0 % 2.0 - 10.0 % [facility] Work Phone: [phone] Platelet distribution width (Bld) [Ratio] 17.4 % High 11.5 - 14.5 % [facility] Work Phone: [phone] Platelet mean volume (Bld) [Entitic vol] 8.1 fL 7.4 - 12.4 fL [facility] Work Phone: Comment on above: MPV is a calculated measurement using platelet volume ratio. Platelets (Bld) [#/Vol] 450 10*3/uL High 140 - 440 10*3/uL [facility] Work Phone: [phone] RBC (Bld) [#/Vol] 4.08 10*6/uL Low 4.40 - 5.9 0 10*6/uL [facility] Work Phone: [phone] WBC (Bld) [#/Vol] 10.3 10*3/uL 3.6 - 10.7 10*3/uL [facility] Work Phone: [phone] Test Performed by [facility] [employer] [facility], [address] [place], [place] [id number] [place] [address] LAB [facility] Work Phone: [phone] CEAon 10-23-2021 CEA 0.8 ng/mL 0.0 - 3.0 ng/mL [facility] Work Phone: [phone] Test Performed by [facility] [employer] [facility], [address] [place], [place] [id number] [place] [address] [facility] Work Phone: [phone] Carcinoembryonic Agon 2021 Carcinoembryonic Ag. 0.8 ng/mL Normal 0.0-3.0 [facility] Comment on above: Performed By: #### C A19O, LUPUS #### The performing lab is in the report. #### NSEO #### [facility] #### HEMDF, LDH3, BMP3, MG3, PT, CEA2 #### [facility] [address] [place] [address] #### B2GPM, B2GPA, B2GPG #### [address] Hemogram w/ Autodiffon 10-23 Abs Baso Cnt 0.1 10*3/uL Normal 0.0-0.2 [facility] Comment on above: Performed By: #### C A19O, LUPUS #### The performing lab is in the report. #### NSEO #### [facility] #### HEMDF, LDH3, BMP3, MG3, PT, CEA2 #### [facility] [address] [facility] [address] [place] [id number] #### B2GPM, B2GPA, B2GPG #### [address] Abs Neutrophile Cnt 6.6 10*3/uL Normal 1.8-7.0 [facility] Comment on above: Performed By: #### C A19O, LUPUS #### The performing lab is in the report. #### NSEO #### [facility] #### HEMDF, LDH3, BMP3, MG3, PT, CEA2 #### [facility] [address] [facility] [place] [place] [address] #### B2GPM, B2GPA, B2GPG #### [address] Basophils/100 WBC (Bld) 1.1 % Normal 0.0-2.0 [facility] Comment on above: Performed By: #### C A19O, LUPUS #### The performing lab is in the report. #### NSEO #### [facility] #### HEMDF, LDH3, BMP3, MG3, PT, CEA2 #### [facility] [address] [place] [address] #### B2GPM, B2GPA, B2GPG #### [address] Eosinophils (Bld) [#/Vol] 0.4 10*3/uL Normal 0.0-0.5 [facility] Comment on above: Performed By: #### C A19O, LUPUS #### The performing lab is in the report. #### NSEO #### [facility] #### HEMDF, LDH3, BMP3, MG3, PT, CEA2 #### [facility] [address] [place] #### B2GPM, B2GPA, B2GPG #### [address] Eosinophils/100 WBC (Bld) 3.9 % Normal 1.0-6.0 [facility] Comment on above: Performed By: #### C A19O, LUPUS #### The performing lab is in the report. #### NSEO #### [facility] #### HEMDF, LDH3, BMP3, MG3, PT, CEA2 #### [facility] [address] [facility] [place] [address] #### B2GPM, B2GPA, B2GPG #### [address] Erythrocyte distribution width (RBC) [Ratio] 17.4 % High 11.5-14.5 [facility] Comment on above: Performed By: #### C A19O, LUPUS #### The performing lab is in the report. #### NSEO #### [facility] #### HEMDF, LDH3, BMP3, MG3, PT, CEA2 #### [facility] [address] [place] [address] #### B2GPM, B2GPA, B2GPG #### [address] Granulocytes/100 WBC (Bld) 64.0 % Normal 40.0-80.0 [facility] Comment on above: Performed By: #### C A19O, LUPUS #### The performing lab is in the report. #### NSEO #### [facility] #### HEMDF, LDH3, BMP3, MG3, PT, CEA2 #### [address] [place] [address] #### B2GPM, B2GPA, B2GPG #### [address] Hematocrit (Bld) [Volume fraction] 35.1 % Low 40.0-52.0 [facility] Comment on above: Performed By: #### C A19O, LUPUS #### The performing lab is in the report. #### NSEO #### [facility] #### HEMDF, LDH3, BMP3, MG3, PT, CEA2 #### [address] [place] #### B2GPM, B2GPA, B2GPG #### [address] Hemoglobin (Bld) [Mass/Vol] 11.6 g/dL Low 13.0-18.0 [facility] Comment on above: Performed By: #### C A19O, LUPUS #### The performing lab is in the report. #### NSEO #### [facility] #### HEMDF, LDH3, BMP3, MG3, PT, CEA2 #### [address] [place] #### B2GPM, B2GPA, B2GPG #### [address] Lymphocytes (Bld) [#/Vol] 2.6 10*3/uL Normal 1.0-4.3 [facility] Comment on above: Performed By: #### C A19O, LUPUS #### The performing lab is in the report. #### NSEO #### [facility] #### HEMDF, LDH3, BMP3, MG3, PT, CEA2 #### [facility] [address] [place] #### B2GPM, B2GPA, B2GPG #### [address] Lymphocytes/100 WBC (Bld) 25.0 % Normal 20.0-40.0 [facility] Comment on above: Performed By: #### C A19O, LUPUS #### The performing lab is in the report. #### NSEO #### [facility] #### HEMDF, LDH3, BMP3, MG3, PT, CEA2 #### [facility] [address] [place] #### B2GPM, B2GPA, B2GPG #### [address] MCH (RBC) [Entitic mass] 28.4 pg Normal 26.0-34.0 [facility] Comment on above: Performed By: #### C A19O, LUPUS #### The performing lab is in the report. #### NSEO #### [facility] #### HEMDF, LDH3, BMP3, MG3, PT, CEA2 #### [facility] [address] [place] #### B2GPM, B2GPA, B2GPG #### [address] MCHC 33.1 % Normal 32.0-36.0 [facility] Comment on above: Performed By: #### C A19O, LUPUS #### The performing lab is in the report. #### NSEO #### [facility] #### HEMDF, LDH3, BMP3, MG3, PT, CEA2 #### [facility] [address] [place] #### B2GPM, B2GPA, B2GPG #### [address] MCV (RBC) [Entitic vol] 85.9 fL Normal 80.0-98.0 [facility] Comment on above: Performed By: #### C A19O, LUPUS #### The performing lab is in the report. #### NSEO #### [facility] #### HEMDF, LDH3, BMP3, MG3, PT, CEA2 #### [facility] [address] [place] [address] #### B2GPM, B2GPA, B2GPG #### [address] Monocytes (Bld) [#/Vol] 0.6 10*3/uL Normal 0.0-0.8 [facility] Comment on above: Performed By: #### C Sena9Elpidio, LUPUS #### The performing lab is in the report. #### NSEO #### [facility] #### HEMDF, LDH3, BMP3, MG3, PT, CEA2 #### [facility] [address] [place] #### B2GPM, B2GPA, B2GPG #### [address] Monocytes/100 WBC (Bld) 6.0 % Normal 2.0-10.0 [facility] Comment on above: Performed By: #### C Sena9O, LUPUS #### The performing lab is in the report. #### NSEO #### [facility] #### HEMDF, LDH3, BMP3, MG3, PT, CEA2 #### [facility] [address] [facility] [place] [place] [address] #### B2GPM, B2GPA, B2GPG #### [address] Platelet mean volume (Bld) [Entitic vol] 8.1 fL Normal 7.4-12.4 [facility] Comment on above: Result Comment: MPV is a calculated measurement using platelet volume ratio. Performed By: #### C A19O, LUPUS #### The performing lab is in the report. #### NSEO #### [facility] #### HEMDF, LDH3, BMP3, MG3, PT, CEA2 #### [facility] [address] [place] [address] #### B2GPM, B2GPA, B2GPG #### [address] Platelets (Bld) [#/Vol] 450 10*3/uL High 140-440 [facility] Comment on above: Performed By: #### C A19O, LUPUS #### The performing lab is in the report. #### NSEO #### [facility] #### HEMDF, LDH3, BMP3, MG3, PT, CEA2 #### [facility] [address] [facility] [address] [place] #### B2GPM, B2GPA, B2GPG #### [address] RBC (Bld) [#/Vol] 4.08 10*6/uL Low 4.40-5.90 [facility] Comment on above: Performed By: #### C A19O, LUPUS #### The performing lab is in the report. #### NSEO #### [facility] #### HEMDF, LDH3, BMP3, MG3, PT, CEA2 #### [facility] [address] [facility] [address] [place] #### B2GPM, B2GPA, B2GPG #### [address] WBC (Bld) [#/Vol] 10.3 10*3/uL Normal 3.6-10.7 [facility] Comment on above: Performed By: #### C A19O, LUPUS #### The performing lab is in the report. #### NSEO #### [facility] #### HEMDF, LDH3, BMP3, MG3, PT, CEA2 #### [facility] [address] [place] [address] #### B2GPM, B2GPA, B2GPG #### [facility] [employer] [facility] [address] [place] [address] LDHon 10-23-2021 LDH 136 U/L Normal 120-246 [facility] Comment on above: Performed By: #### C A19O, LUPUS #### The performing lab is in the report. #### NSEO #### [facility] #### HEMDF, LDH3, BMP3, MG3, PT, CEA2 #### [facility] [employer] [facility] [address] [place] [address] #### B2GPM, B2GPA, B2GPG #### [facility] [employer] [facility] [address] [place] [address] Lactate Dehydrogenaseon 10-05 LD 136 U/L 120 - 246 U/L [facility] Work [facility]: MRI ABDOMEN WO CONTRASTon Patient Name: ANDREW SIFUENTES Magnetic Resonance Imaging ACCESSION EXAM DATE/TIME PROCEDURE ORDERING PROVIDER [id number] 10/23/2021 11:08 EDT MRI Abdomen w/o Contrast WING SRIVASTAVA CPT code 47029 Reason For Exam (MRI Abdomen w/o Contrast) [...] Imaging ACCESSION EXAM DATE/TIME PROCEDURE ORDERING PROVIDER [id number] 10/23/2021 11:08 EDT MRI Abdomen w/o Contrast WING SRIVASTAVA CPT code 06821 Reason For Exam (MRI Abdomen w/o Contrast) [...] VLADIMIR Transcribed Date and Time: 10/23/2021 4:36 [facility]: MRI ABDOMEN WO CONTRASTOrder ed By: Unknown Result on 10-23-2021 [facility] MRI Abdomen w/o Contraston 0 10-23-2021 MRI Abdomen w/o Contrast Patient Name: ANDREW SIFUENTES Magnetic Resonance Imaging ACCESSION EXAM DATE/TIME PROCEDURE ORDERING PROVIDER [id number] 10/23/2021 11:08 EDT MRI Abdomen w/o Contrast WING SRIVASTAVA CPT code 65395 Reason For Exam (MRI Abdomen w/o Contrast) [...] Transcribed Date and Time: 10/23/2021 4:36 Normal [facility] Magnesiumon 10-23-2021 Magnesium [Mass/Vol] 2.1 mg/dL Normal 1.6-2.3 [facility] Comment on above: Performed By: #### C A19O, LUPUS #### The performing lab is in the report. #### NSEO #### [facility] #### HEMDF, LDH3, BMP3, MG3, PT, CEA2 #### [facility] [address] [place] [address] #### B2GPM, B2GPA, B2GPG #### [facility] [address] [place] [address] Magnesium [Mass/Vol] 2.1 mg/dL 1.6 - 2 .3 mg/dL [facility] Work Phone: No Panel Informationon 10-23 Test Performed by [facility], [address] [place], [place], [place] [id number] [place] [address] [facility] Work Phone: Prothrombin Timeon INR 1.1 Normal 0.9-1.1 [facility] Comment on above: Result Comment: Harry [...] LDH3, BMP3, MG3, PT, CEA2 #### [address] [place] [address] #### B2GPM, B2GPA, B2GPG #### [address] [address] PT Coag (PPP) [Time] 12.2 s High 9.0-12.0 [facility] Comment on above: Result Comment: . Performed By: #### C A19O, LUPUS #### The performing lab is in the report. #### NSEO #### [facility] #### HEMDF, LDH3, BMP3, MG3, PT, CEA2 #### [facility] [address] [facility] [place] [address] #### B2GPM, B2GPA, B2GPG #### [address] [address] Protime-INRon 10-23-2021 INR Coag (Bld) [Relative time] 1.1 {INR} [facility] Work Phone: Comment on above: Recommended [...] and review of laboratory results Abnormal [facility] Work Phone: PT Coag (PPP) [Time] 12.2 s High 9.0 - 12.0 s [facility] Work Phone: Comment on above: . Test Performed by [facility], [address] [place] [address] [facility] LAB [facility] Work Phone: Basic Metabolic Panelon 10-05-2021 Calcium [Mass/Vol] 8.9 mg/dL Normal 8.4-10.4 [facility] Comment on above: Performed By: #### P T #### [place] [address] [place] [address] Glucose [Mass/Vol] 110 mg/dL High 70-100 [facility] Comment on above: Performed By: #### P T #### [facility] [address] [place] [address] Urea nitrogen [Mass/Vol] 14 mg/dL Normal 7-17 [facility] Comment on above: Performed By: #### P T #### [facility] [address] [place] [address] Anion gap [Moles/Vol] 7 mmol/L Normal 3-[address] [facility] Comment on above: Performed By: #### P T #### [facility] [address] [place] [address] CO2 [Moles/Vol] 26 mmol/L Normal 22-30 [facility] Comment on above: Performed By: #### P T #### [place] [address] [place] [address] Creatinine [Mass/Vol] 0.71 mg/dL Normal 0.52-1.[address] [facility] Comment on above: Performed By: #### P T #### [facility] [address] [place] [address] eGFR OTHER > 90.0 Normal >60 [facility] Comment on above: Result Comment: KDIG [...] secretion. Performed By: #### P T #### [facility] [address] [place] [address] GFR/1.73 sq M.predicted among blacks MDRD (S/P/Bld) [Vol rate/Area] mL/min/{1.73_m2} Normal >60 [facility] Comment on above: Performed By: #### P T #### [facility] [address] [place] [address] Potassium [Moles/Vol] 3.8 mmol/L Normal 3.5-5.[address] [facility] Comment on above: Performed By: #### P T #### [facility] [address] [place] [address] Chloride [Moles/Vol] 106 mmol/L Normal 98-107 [facility] Comment on above: Performed By: #### P T #### [facility] [address] [place] [address] Sodium [Moles/Vol] 139 mmol/L Normal 135-145 [facility] Comment on above: Performed By: #### P T #### [facility] [address] [place] [address] Anion gap [Moles/Vol] 7 mmol/L 3 - 13 mmol/L [facility] Calcium [Mass/Vol] 8.9 mg/dL 8.4 - 10. 4 mg/dL [facility] Chloride [Moles/Vol] 106 mmol/L 98 - 10 7 mmol/L [facility] CO2 [Moles/Vol] 26 mmol/L 22 - 30 mmol/L [facility] Creatinine [Mass/Vol] 0.71 mg/dL 0.52 - 1.25 mg/dL [facility] EGFR IF NonAfrican Finnish >90.0 >60 mL/min [facility] Comment on above: [...] - 10.7 10*3/uL [facility] Test Performed by [facility], [address] [place], [place], [place] [id number] [place] [address] [facility] [address] [facility] Pelvis Wo Contras ton 10-22-2021 Patient Name: ANDREW SIFUENTES Computed Tomography ACCESSION EXAM DATE/TIME PROCEDURE ORDERING PROVIDER [id number] 10/22/2021 13:[address] Abdomen/Pelvis (No SRIVASTAVA, WING PO, No IV) CPT code 68642 Reason For Exam (CT Abdomen/Pelvis (No PO, [...] Transcribed Date and Time: 10/22/2021 2:37 [facility] Humphrey Melton MD - 10/22/2021 Patient Name: [id number] Computed Tomography ACCESSION EXAM DATE/TIME PROCEDURE ORDERING PROVIDER [id number] 10/22/2021 13:[address] Abdomen/Pelvis (No SRIVASTAVA, WING PO, No IV) CPT code 45379 Reason For Exam (CT Abdomen/Pelvis (No PO, [...] Tomography ACCESSION EXAM DATE/TIME PROCEDURE ORDERING PROVIDER [id number] 10/22/2021 13:[address] Abdomen/Pelvis (No SRIVASTAVA, WING PO, No IV) CPT code 07650 Reason For Exam (CT Abdomen/Pelvis (No PO, [...] Transcribed Date and Time: 10/22/2021 2:37 Normal [facility] Hemogram w/ Autodiffon 10-22 Abs Baso Cnt 0.1 10*3/uL Normal 0.0-0.2 [facility] Comment on above: Performed By: #### P T #### [facility] [address] [place] [address] Abs Neutrophile Cnt 6.0 10*3/uL Normal 1.8-7.0 [facility] Comment on above: Performed By: #### P T #### [facility] [address] [place] [address] Basophils/100 WBC (Bld) 1.0 % Normal 0.0-2.0 [facility] Comment on above: Performed By: #### P T #### [facility] [address] [place] [address] Eosinophils (Bld) [#/Vol] 0.3 10*3/uL Normal 0.0-0.5 [facility] Comment on above: Performed By: #### P T #### [facility] [address] [place] [address] Eosinophils/100 WBC (Bld) 3.0 % Normal 1.0-6.0 [facility] Comment on above: Performed By: #### P T #### [facility] [address] [place] [address] Erythrocyte distribution width (RBC) [Ratio] 17.1 % High 11.5-14.5 [facility] Comment on above: Performed By: #### P T #### [facility] [address] [place] [address] Granulocytes/100 WBC (Bld) 64.1 % Normal 40.0-80.0 [facility] Comment on above: Performed By: #### P T #### [facility] [address] [place] [address] Hematocrit (Bld) [Volume fraction] 33.4 % Low 40.0-52.0 [facility] Comment on above: Performed By: #### P T #### [facility] [address] [place] [address] Hemoglobin (Bld) [Mass/Vol] 10.9 g/dL Low 13.0-18.0 [facility] Comment on above: Performed By: #### P T #### [facility] [address] [place] [address] Lymphocytes (Bld) [#/Vol] 2.5 10*3/uL Normal 1.0-4.3 [facility] Comment on above: Performed By: #### P T #### [facility] [address] [place] [address] Lymphocytes/100 WBC (Bld) 26.3 % Normal 20.0-40.0 [facility] Comment on above: Performed By: #### P T #### [facility] [address] [place] [address] MCH (RBC) [Entitic mass] 28.2 pg Normal 26.0-34.0 [facility] Comment on above: Performed By: #### P T #### [facility] [address] [place] [address] MCHC 32.7 % Normal 32.0-36.0 [facility] Comment on above: Performed By: #### P T #### [facility] [address] [place] [address] MCV (RBC) [Entitic vol] 86.3 fL Normal 80.0-98.0 [facility] Comment on above: Performed By: #### P T #### [facility] [address] [place] [address] Monocytes (Bld) [#/Vol] 0.5 10*3/uL Normal 0.0-0.8 [facility] Comment on above: Performed By: #### P T #### [facility] [address] [place] [address] Monocytes/100 WBC (Bld) 5.6 % Normal 2.0-10.0 [facility] Comment on above: Performed By: #### P T #### [facility] [address] [place] [address] Platelet mean volume (Bld) [Entitic vol] 7.6 fL Normal 7.4-12.4 [facility] Comment on above: Result Comment: MPV is a calculated measurement using platelet volume ratio. Performed By: #### P T #### [facility] [address] [place] [address] Platelets (Bld) [#/Vol] 369 10*3/uL Normal 140-440 [facility] Comment on above: Performed By: #### P T #### [facility] [address] [place] [address] RBC (Bld) [#/Vol] 3.87 10*6/uL Low 4.40-5.90 [facility] Comment on above: Performed By: #### P T #### [facility] [address] [place] [address] WBC (Bld) [#/Vol] 9.4 10*3/uL Normal 3.6-10.7 [facility] Comment on above: Performed By: #### P T #### [facility] [address] [place] [address] Magnesiumon 10-22-2021 Magnesium [Mass/Vol] 2.0 mg/dL Normal 1.6-2.3 [facility] Comment on above: Performed By: #### P T #### [facility] [address] [place] [address] Magnesium [Mass/Vol] 2.0 mg/dL 1.6 - 2 .3 mg/dL [facility] No Panel Informationon 10-22 Radiology Study observation (narrative) [facility] Work Phone: Test Performed by [facility], [address] [place] [address] [facility] Prothrombin Timeon 2 INR 1.1 Normal 0.9-1.1 [facility] Comment on above: Result Comment: Ahrry mmended [...] HEMDF, LDH3, BMP3, MG3, PT, CEA2 #### [facility] [address] [place] [address] #### B2GPM, B2GPA, B2GPG #### [address] [address] PT Coag (PPP) [Time] 11.8 s Normal 9.0-12.0 [facility] Comment on above: Result Comment: . Performed By: #### C A19O, LUPUS #### The performing lab is in the report. #### NSEO #### [facility] #### HEMDF, LDH3, BMP3, MG3, PT, CEA2 #### [place] [address] [place] [address] #### B2GPM, B2GPA, B2GPG #### [address] [address] Protime-INRon 10-22-2021 INR Coag (Bld) [Relative time] 1.1 {INR} [facility] Work Phone: Comment on above: Recommended [...] [Time] 11.8 s 9.0 - 12.0 s [facility] Work Phone: Comment on above: . Test Performed by [facility], [address], [place], [place] [address] [facility] Work Phone: VL Ankle Art Brachial Indice s Extremity Bilateralon 10-22-2021 [facility] Ankle Brachial Index Report Patient DO GurpreetB: 1950 Study 10/21/2021 Name: Andrew Gonzalez (71yrs) Date: Age: 71 Account: [id number] Gender: M Loc: 444W BP: Ordering Physician: Shruthi Malik Weld Lay Out Worker: Rody Cross RDMS, RVT Interpreting Physician: Carina Call Location: [facility] Indications: Foot wounds. Originally ordered as a full PVR. Ordering ICE CREAM FREEZER had to modify the order to ABIs [...] supine position. Images were obtained using a [employer] vascular ultrasound machine. Arterial pressure indices: + [...] by Carina Call 10/22/2021 13:21 [facility] Carina Call MD - 10/22/2021 [facility] Ankle Brachial Index Report Patient DO GurpreetB: 1950 Study 10/21/2021 Name: Andrew Gonzalez (71yrs) Date: Age: 71 Account: [id number] Gender: M Loc: 444W BP: Ordering Physician: Shruthi Malik Weld Lay Out Worker: Rody Cross RDMS RVT Interpreting Physician: Carina Call Location: [facility] Indications: Foot wounds. Originally ordered as a full PVR. Ordering ICE CREAM FREEZER had to modify the order to ABIs [...] supine position. Images were obtained using a [employer] vascular ultrasound machine. Arterial pressure indices: + [...] electronically signed by Carina Call 10/22/2021 13:21 [facility] Work Phone: [facility] Work Phone: Basic Metabolic Panelon 10-05 Calcium [Mass/Vol] 9.1 mg/dL Normal 8.4-10.4 [facility] Comment on above: Performed By: #### C OVAG #### [facility] [address] [place] [address] Anion gap [Moles/Vol] 6 mmol/L Normal 3-[address] [facility] Comment on above: Performed By: #### C OVAG #### [facility] [address] [place] [address] CO2 [Moles/Vol] 29 mmol/L Normal 22-30 [facility] Comment on above: Performed By: #### C OVAG #### [facility] [address] [place] [address] Creatinine [Mass/Vol] 0.90 mg/dL Normal 0.52-1.[address] [facility] Comment on above: Performed By: #### C OVAG #### [facility] [address] [place] [address] GFR/1.73 sq M.predicted among blacks MDRD (S/P/Bld) [Vol rate/Area] mL/min/{1.73_m2} Normal >60 [facility] Comment on above: Performed By: #### C OVAG #### [facility] [address] [place] [address] GFR/1.73 sq M.predicted among non-blacks MDRD (S/P/Bld) [Vol rate/Area] 86.6 mL/min/{1.73_m2} Normal >60 [facility] Comment on above: Result Comment: KDIG [...] secretion. Performed By: #### C OVAG #### [facility] [address] [place] [address] Glucose [Mass/Vol] 106 mg/dL High 70-100 [facility] Comment on above: Performed By: #### C OVAG #### [facility] [address] [place] [address] Urea nitrogen [Mass/Vol] 18 mg/dL High 7-17 [facility] Comment on above: Performed By: #### C OVAG #### [facility] [address] [place] [address] Chloride [Moles/Vol] 105 mmol/L Normal 98-107 [facility] Comment on above: Performed By: #### C OVAG #### [facility] [address] [place] [address] Potassium [Moles/Vol] 4.3 mmol/L Normal 3.5-5.[address] [facility] Comment on above: Performed By: #### C OVAG #### [facility] [address] [place] [address] Sodium [Moles/Vol] 139 mmol/L Normal 135-145 [facility] Comment on above: Performed By: #### C OVAG #### [facility] [address] [place] [address] Anion gap [Moles/Vol] 6 mmol/L 3 - 13 mmol/L [facility] Calcium [Mass/Vol] 9.1 mg/dL 8.4 - 10. 4 mg/dL [facility] Chloride [Moles/Vol] 105 mmol/L 98 - 10 7 mmol/L [facility] CO2 [Moles/Vol] 29 mmol/L 22 - 30 mmol/L [facility] Creatinine [Mass/Vol] 0.9 mg/dL 0.52 - 1.25 mg/dL [facility] EGFR IF NonAfrican Finnish 86.6 mL/min >60 [facility] Comment on above: KDIGO guidelines pro [...] - 17 mg/dL [facility] Test Performed by [facility], [address] LAB [facility] C-Reactive Proteinon 022 CRP [Mass/Vol] 33.5 mg/L High 0.0-9.9 [facility] Comment on above: Result Comment: . Performed By: #### P T #### [facility] [address] [place] [address] CRP [Mass/Vol] 33.5 mg/L High 0.0 - 9.9 mg/L [facility] Comment on above: . Interpretation and review of laboratory results Abnormal [facility] Test Performed by [facility], [address] LAB [facility] CR Calcaneus 2+ Views Lefton 10-21-2021 CR Calcaneus 2+ Views Left Patient Name: ANDREW SIFUENTES Diagnostic Radiology ACCESSION EXAM DATE/TIME PROCEDURE ORDERING PROVIDER [id number] 10/21/2021 15:30 EDT CR Calcaneus 2+ Views [id number] -SHRUTHI MALIK Left CPT code 48396 Reason For Exam (CR Calcaneus 2+ Views [...] Transcribed Date and Time: 10/21/2021 4:33 Normal [facility] CR Chest 1 View Frontalon CR Chest 1 View Frontal Patient Name: ANDREW SIFUENTES Diagnostic Radiology ACCESSION EXAM DATE/TIME PROCEDURE ORDERING PROVIDER [id number] 10/21/2021 08:16 EDT CR Chest 1 View Frontal [id number] MAY BOGGS CPT code 47042 Reason For Exam (CR Chest 1 View [...] Transcribed Date and Time: 10/21/2021 8:33 Normal [facility] D-Dimer, Innovanceon 022 D-Dimer, Innovance 1.51 mg/L High <0.19-0.50 [facility] Comment on above: Result Comment: Inno saba D-Dimer values of <0.50 mg/L FEU can be used in combination with a pre-test probability model (e.g. Well's) to exclude pulmonary embolism (PE) disease, as well as an aid in the diagnosis of deep vein thrombosis (DVT). Performed By: #### P T #### [facility] [address] [place] [address] D-Dimer, Quantitativeon 10-05 D-Dimer, Quant 1.51 mg/L High <0.19 - 0.50 [facility] Comment on above: [facility] D-Dimer va lues of <0.50 mg/L FEU can be used in combination with a pre-test probability model (e.g. Well's) to exclude pulmonary embolism (PE) disease, as well as an aid in the diagnosis of deep vein thrombosis (DVT). Interpretation and review of laboratory results Abnormal [facility] Test Performed by [facility], [address], [place], [place] [address] [facility] ED Provider Noteon 2 ED Provider Note Shilpa CEMENT ED EMERGENCY DEPARTMENT ENCOUNTER Pt Name: Andrew [...] (HCC) ? Kidney stone ? Neuropathy ? 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 Attends Mandaen Services: Not on file ? Active Member [...] LUNGS: Respirations (more content not included)... Normal [facility] Hemogramon 10-21-2021 Erythrocyte distribution width (RBC) [Ratio] 17.3 % High 11.5-14.5 [facility] Comment on above: Performed By: #### C OVAG #### [facility] [address] [place] [address] Hematocrit (Bld) [Volume fraction] 33.6 % Low 40.0-52.0 [facility] Comment on above: Performed By: #### C OVAG #### [facility] [address] [place] [address] Hemoglobin (Bld) [Mass/Vol] 10.9 g/dL Low 13.0-18.0 [facility] Comment on above: Performed By: #### C OVAG #### [facility] [address] [place] [address] MCH (RBC) [Entitic mass] 27.8 pg Normal 26.0-34.0 [facility] Comment on above: Performed By: #### C OVAG #### [facility] [address] [place] [address] MCHC 32.5 % Normal 32.0-36.0 [facility] Comment on above: Performed By: #### C OVAG #### [facility] [address] [place] [address] MCV (RBC) [Entitic vol] 85.6 fL Normal 80.0-98.0 [facility] Comment on above: Performed By: #### C OVAG #### [facility] [address] [place] [address] Platelet mean volume (Bld) [Entitic vol] 7.7 fL Normal 7.4-12.4 [facility] Comment on above: Result Comment: MPV is a calculated measurement using platelet volume ratio. Performed By: #### C OVAG #### [facility] [address] [place] [address] Platelets (Bld) [#/Vol] 404 10*3/uL Normal 140-440 [facility] Comment on above: Performed By: #### C OVAG #### [facility] [address] [place] [address] RBC (Bld) [#/Vol] 3.93 10*6/uL Low 4.40-5.90 [facility] Comment on above: Performed By: #### C OVAG #### [facility] [address] [place] [address] WBC (Bld) [#/Vol] 11.6 10*3/uL High 3.6-10.7 [facility] Comment on above: Performed By: #### C OVAG #### [facility] [address] [place] [address] Hemogram (CBC)on 10-21-2021 Hematocrit (Bld) [Volume fraction] 33.6 % Low 40.0 - 52.0 % [facility] Hemoglobin (Bld) [Mass/Vol] 10.9 g/dL Low 13.0 - 18.0 g/dL [facility] Interpretation and review of laboratory results [...] - 10.7 10*3/uL [facility] Test Performed by [facility], [address] [facility] [place], [place] [address] [facility] NM LUNG VENT/PERFUSION (VQ)o n 10-21-2021 Patient Name: ANDREW SIFUENTES Nuclear Medicine ACCESSION EXAM DATE/TIME PROCEDURE ORDERING PROVIDER [id number] 10/21/2021 07:55 EDT NM Pulmonary Perfusion [id number] -MAY CASH w/ Vent Aerosol CPT code 33015 A9567 Reason For Exam (NM Pulmonary Perfusion [...] Medicine ACCESSION EXAM DATE/TIME PROCEDURE ORDERING PROVIDER [id number] 10/21/2021 07:55 EDT NM Pulmonary Perfusion [id number] FOSTER w/ Vent Aerosol CPT code 14878 A9567 Reason For Exam (NM Pulmonary Perfusion [...] JOHN Transcribed Date and Time: 10/21/2021 8:49 [facility] Work Phone: NM LUNG VENT/PERFUSION (VQ)O rdered By: Henry Harvey on 10-21-2021 [facility] Work Phone: NM Pulmonary Perfusion w/ Ve nt Aerosol or Gason 10-21-2021 NM Pulmonary Perfusion w/ Vent Aerosol or Gas Patient Name: ANDREW SIFUENTES Nuclear Medicine ACCESSION EXAM DATE/TIME PROCEDURE ORDERING PROVIDER [id number] 10/21/2021 07:55 EDT NM Pulmonary Perfusion [id number] MAY BOGGS w/ Vent Aerosol CPT code 98227 A9567 Reason For Exam (NM Pulmonary Perfusion [...] Transcribed Date and Time: 10/21/2021 8:49 Normal [facility] No Panel Informationon 10-21 Radiology Study observation (narrative) [facility] Work Phone: Prothrombin Timeon 2 INR 1.1 Normal 0.9-1.1 [facility] Comment on above: Result Comment: Harry [...] Infarction Performed By: #### C OVAG #### [facility] [address] [facility] [place] [address] PT Coag (PPP) [Time] 11.5 s Normal 9.0-12.0 [facility] Comment on above: Result Comment: . Performed By: #### C OVAG #### [facility] [address] [facility] [place] [address] Protime-INRon 10-21-2021 INR Coag (Bld) [Relative time] 1.1 {INR} [facility] Comment on above: Recommended Anticoag ulant [...] [Time] 11.5 s 9.0 - 12.0 s [facility] Comment on above: . Test Performed by [facility], [address], [place] [id number] [place] [address] [facility] Retic Count(%)on 10-21-2021 Retic Count(%) 1.6 Normal [facility] Comment on above: Result Comment: Newb orn < 5% Adults 0.5 - 1.5% Performed By: #### P T #### [facility] [address] [place] [address] Reticulocyteson 10-21-[address] Pct 1.6 [facility] Comment on above: < 5% Adults 0.5 - 1.5% Test Performed by [facility], [facility] [address] [place], [place] [id number] [place] [address] LAB [facility] Sed Rateon 10-21-2021 Sed Rate 63 mm/h High 0-10 [facility] Comment on above: Performed By: #### P T #### [facility] [address] [place] [address] Sedimentation Rateon 022 Interpretation and review of laboratory results Abnormal [facility] Sed Rate 63 mm/h High 0 - 10 mm/h [facility] Test Performed by [facility], [facility] [address] [place], [place] [id number] [place] [address] LAB [facility] VL CARMELLA Upr/L Extremity Art 1 -2 Levelson 10-21-2021 VL CARMELLA Upr/L Extremity Art 1-2 Levels Patient Name: [id number] Ultrasound ACCESSION EXAM DATE/TIME PROCEDURE ORDERING PROVIDER [id number] 10/21/2021 16:12 EDT VL Upr/L Extremity Art [id number] -SHRUTHI MALIK 1-2 Levels CPT code 38778 Reason For Exam (VL Upr/L Extremity Art 1-2 Levels) both lower legs CARMELLA for both feet wounds. Report [facility] Ankle Brachial Index Report Patient Gurpreet : 1950 Study 10/21/2021 Name: Andrew Gonzalez (71yrs) Date: Age: 71 Account: [id number] Gender: M Loc: 444W BP: Ordering Physician: Shruthi Malik Weld Lay Out Worker: Rody Cross RDMS, RVT Interpreting Physician: Carina Call Location: [facility] Indications: Foot wounds. Originally ordered as a full PVR. Ordering ICE CREAM FREEZER had to modify the order to ABIs [...] supine position. Images were obtained using a [employer] vascular ultrasound machine. Arterial pressure indices: + [...] CARINA HENNESSY Cardiovascular ACCESSION EXAM DATE/TIME PROCEDURE [id number] 10/21/2021 16:12 EDT VL Upr/L Extremity Art 1-2 Levels CPT code 22916 Reason For Exam (VL Upr/L Extremity Art 1-2 Levels) both lower legs CARMELLA for both feet wounds. Report [facility] Ankle Brachial Index Report Patient Gurpreet RADHA: 1950 Study 10/21/2021 Name: Andrew Gonzalez (71yrs) Date: Age: 71 Account: [id number] Cardiovascular Report Gender: M Loc: 444W BP: Ordering Physician: Shruthi Malik Weld Lay Out Worker: Rody Cross RDMS, RVT Interpreting Physician: Carina Call Location: [facility] Indications: Foot wounds. Originally ordered as a full PVR. 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 Normal [facility] [employer] [facility] VL LOWER EXTREMITY BILATERAL VENOUS DUPLEXon 10-21-2021 [facility] Lower Extremity Venous Duplex Report Patient DO GurpreetB: 1950 Study 10/21/2021 Name: Andrew Gonzalez (71yrs) Date: Age: 71 Account: [id number] Gender: M Loc: 444 BP: Ordering Physician: May Cash Weld Lay Out Worker: Rody Cross RDMS, RVT Interpreting Physician: Carina Call Location: [facility] Indications: Bilateral lower leg edema. CRITICAL RESULTS: [...] supine position. Images were obtained using a [employer] vascular ultrasound machine. Venous flow and imaging: [...] + (more content not included)... [facility] Carina Call MD - 10/21/2021 [facility] Lower Extremity Venous Duplex Report Patient DO GurpreetB: 1950 Study 10/21/2021 Name: Andrew Gonzalez () Date: Age: 71 Account: [id number] Gender: M Loc: 444 BP: Ordering Physician: May Cash Weld Lay Out Worker: Rody Cross RDMS, RVT Interpreting Physician: Carina Call Location: [facility] Indications: Bilateral lower leg edema. CRITICAL RESULTS: [...] supine position. Images were obtained using a [employer] vascular ultrasound machine. Venous flow and imaging: [...] + + +----- (more content not included)... [employer] Phone: VL LOWER EXTREMITY BILATERAL VENOUS DUPLEXOrdered By: Carina Call on 10-21-2021 [employer] Phone: VL Venous Duplex US Lower Ex t Bilateralon 10-21-2021 VL Venous Duplex US Lower Ext Bilateral Patient Name: ANDREW SIFUENTES Ultrasound ACCESSION EXAM DATE/TIME PROCEDURE ORDERING PROVIDER [id number] 10/21/2021 09:53 EDT VL Venous Duplex US [id number] -MAY CASH Lower Ext Bilateral CPT code 37299 Reason For Exam (VL Venous Duplex US Lower Ext Bilateral) bilateral sqwelling redness Report [facility] Lower Extremity Venous Duplex Report Patient DO GurpreetB: 1950 Study 10/21/2021 Name: Andrew Gonzalez (71yrs) Date: Age: 71 Account: [id number] Gender: M Loc: 444 BP: Ordering Physician: May Cash Weld Lay Out Worker: Rody Cross RDMS, T Interpreting Physician: Carina Call Location: [facility] Indications: Bilateral lower leg edema. CRITICAL RESULTS: [...] supine position. Images were obtained using a [employer] vascular ultrasound machine. Venous flow and imaging: [...] + + (more content not included)... Normal [employer] XR CALCANEUS LEFT (MIN 2 VIE WS)on 10-21-2021 Patient Name: ANDREW SIFUENTES Diagnostic Radiology ACCESSION EXAM DATE/TIME PROCEDURE ORDERING PROVIDER [id number] 10/21/2021 15:30 EDT CR Calcaneus 2+ Views [id number] -SHRUTHI MALIK Left CPT code 45616 Reason For Exam (CR Calcaneus 2+ Views [...] Radiology ACCESSION EXAM DATE/TIME PROCEDURE ORDERING PROVIDER [id number] 10/21/2021 15:30 EDT CR Calcaneus 2+ Views [id number] -SHRUTHI MALIK Left CPT code 42598 Reason For Exam (CR Calcaneus 2+ Views [...] J Transcribed Date and Time: 10/21/2021 4:33 [facility] Work Phone: XR CALCANEUS LEFT (MIN 2 VIE WS)Ordered By: Alan Wong on 10-21-2021 [facility] Work Phone: XR Chest 1 VWon 10-21-2021 Patient Name: ANDREW LARSEN Diagnostic Radiology ACCESSION EXAM DATE/TIME PROCEDURE ORDERING PROVIDER [id number] 10/21/2021 08:16 EDT CR Chest 1 View Frontal [id number] MAY BOGGS CPT code 97204 Reason For Exam (CR Chest 1 View [...] Transcribed Date and Time: 10/21/2021 8:33 [facility] Venus Loyd MD - 10/21/2021 Patient Name: ANDREW SIFUENTES Diagnostic Radiology ACCESSION EXAM DATE/TIME PROCEDURE ORDERING PROVIDER [id number] 10/21/2021 08:16 EDT CR Chest 1 View Frontal [id number] MAY BOGGS CPT code 52728 Reason For Exam (CR Chest 1 View [...] RAMOS Transcribed Date and Time: 10/21/2021 8:33 [facility] Work Phone: XR Chest 1 VWOrdered By: Natalie Loyd on 10-21-2021 [facility] Work Phone: Basophil percentageon 2021 Chloride [Moles/Vol] 108 mmol/L 98-107 [facility] Work Phone: Glucose [Mass/Vol] 93 mg/dL 74-106 [facility] Work Phone: [phone] Potassium [Moles/Vol] 3.9 mmol/L 3.5-5.1 [facility] Work Phone: Sodium [Moles/Vol] 140 mmol/L 136-145 [facility] Work Phone: WBC (Bld) [#/Vol] 8.7 10*3/uL 4.4-11.0 [facility] Work Phone: [phone] Blood erythrocytes count (nu mber/volume)on 10-20-2021 RBC (Bld) [#/Vol] 3.63 10*6/uL 4.6-6.2 [facility] Work Phone: [phone] Blood hemoglobin measurement (mass/volume)on 10-20-2021 Hemoglobin (Bld) [Mass/Vol] 10.1 g/dL 13.0-16.5 [facility] Work Phone: Blood platelet mean volumeon 10-20-2021 Platelet mean volume (Bld) [Entitic vol] 9.8 fL 6.2-12.0 [facility] Work Phone: Determination of erythrocyte mean corpuscular volume (MCV)on 10-20-2021 MCV (RBC) [Entitic vol] 90.1 fL 80-94 [facility] Work Phone: Hematocrit Auto (Bld) [Volum e fraction]on 10-20-2021 Hematocrit (Bld) [Volume fraction] 32.7 % 40-54 [facility] Work Phone: Laboratory - Chemistry and C hemistry - challengeon 10-20-2021 CO2 [Moles/Vol] 25.0 mmol/L 21.0-32.0 [facility] Work Phone: Urea nitrogen/Creatinine [Mass ratio] 17.4 mg/mg 10-20 [facility] Work Phone: Laboratory - Hematology and Cell countson 10-20-2021 Erythrocyte distribution width (RBC) [Entitic vol] 52.1 fL 35.1-43.9 [facility] Work Phone: Erythrocyte distribution width (RBC) [Ratio] 15.6 % 11.6-14.6 [facility] Work Phone: MCH (RBC) [Entitic mass] 27.8 pg 27.0-32.0 [facility] Work Phone: MCHC Auto (RBC) [Mass/Vol]on 10-20-2021 MCHC (RBC) [Mass/Vol] 30.9 g/dL 32-36 [facility] Work Phone: No Panel Informationon 10-20 Estimated GFR (MDRD) Amer 133 mL/min >60 [facility] Work Phone: Comment on above: GFR Calc Estimated GFR (MDRD) Non-Af Amer 110 mL/min >60 [facility] Work Phone: Comment on above: Non- GFR Calc Platelets bldon 10-20-2021 Platelets (Bld) [#/Vol] 404 10*3/uL 150-450 [facility] Work Phone: Serum or plasma calcium oral urement (mass/volume)on 10-20-2021 Calcium [Mass/Vol] 9.1 mg/dL 8.5-10.1 [facility] Work Phone: Serum or plasma creatinine m easurement (mass/volume)on 10-20-2021 Creatinine [Mass/Vol] 0.75 mg/dL 0.70-1.30 [facility] Work Phone: Comment on above: The validity of the calculated GFR & GFRAA in patients over 70 years has not been determined. Clinical correlation is essential. Serum or plasma urea nitroge n measurement (mass/volume)on 10-20-2021 Urea nitrogen [Mass/Vol] 13 mg/dL 7-18 [facility] Work Phone: Thin prep Papanicolaou smear with manual screeningon 10-20-2021 Thin prep Papanicolaou smear with manual screening 7 5-15 [facility] Work Phone: CNPNon 10-17-2021 CNPN Normal [facility] Absolute lymphocyte counton 09-19-2021 Lymphocytes Auto (Unsp spec) [#/Vol] 1.74 10*3/uL 0.83-4.51 [facility] Work Phone: Basophil percentageon 2021 Basophils/100 WBC (Bld) 0.6 % 0-1 [facility] Work Phone: Bilirubin [Mass/Vol] 0.30 mg/dL 0.20-1.00 [facility] Work Phone: Comment on above: For patients on eltr ombopag therapy, use of Dimension [place] TBIL is not recommended. Chloride [Moles/Vol] 105 mmol/L 98-107 [facility] Work Phone: Eosinophils/100 WBC (Bld) 3.5 % 0-5 [facility] Work Phone: [phone] Glucose [Mass/Vol] 91 mg/dL 74-106 [facility] Work Phone: [phone] Neutrophils (Bld) [#/Vol] 4.2 10*3/uL 2.0-7.7 [facility] Work Phone: [phone] Neutrophils/100 WBC (Bld) 62.6 % 47-70 [facility] Work Phone: Potassium [Moles/Vol] 3.8 mmol/L 3.5-5.1 [facility]: Protein [Mass/Vol] 6.3 g/dL 6.4-8.2 [facility] Work Phone: Sodium [Moles/Vol] 139 mmol/L 136-145 [facility] Work Phone: WBC (Bld) [#/Vol] 6.6 10*3/uL 4.4-11.0 [facility] Work Phone: Blood erythrocytes count (nu mber/volume)on 09-19-2021 RBC (Bld) [#/Vol] 3.47 10*6/uL 4.6-6.2 [facility] Work [facility]: Blood hemoglobin measurement (mass/volume)on 09-19-2021 Hemoglobin (Bld) [Mass/Vol] 10.2 g/dL 13.0-16.5 [facility] Work Phone: [phone] Blood lymphocytes/100 leukoc yteson 09-19-2021 Lymphocytes/100 WBC (Bld) 26.2 % 19-41 [facility] Work Phone: [phone] Blood monocytes/100 leukocyt eson 09-19-2021 Monocytes/100 WBC (Bld) 6.5 % 0-10 [facility] Work Phone: [phone] Blood platelet mean volumeon 09-19-2021 Platelet mean volume (Bld) [Entitic vol] 9.6 fL 6.2-12.0 [facility] Work Phone: [phone] Determination of erythrocyte mean corpuscular volume (MCV)on 09-19-2021 MCV (RBC) [Entitic vol] 94.8 fL 80-94 [facility] Work Phone: Hematocrit Auto (Bld) [Volum e fraction]on 09-19-2021 Hematocrit (Bld) [Volume fraction] 32.9 % 40-54 [facility] Work Phone: Laboratory - Chemistry and C hemistry - challengeon 09-19-2021 ALP [Catalytic activity/Vol] 109 U/L 45-117 [facility] Work Phone: ALT [Catalytic activity/Vol] 23 U/L 16-61 [facility] Work Phone: CO2 [Moles/Vol] 26.0 mmol/L 21.0-32.0 [facility] Work Phone: Globulin (S) [Mass/Vol] 3.5 g/dL 2.2-4.2 [facility] Work Phone: Urea nitrogen/Creatinine [Mass ratio] 15.3 mg/mg 10-20 [facility] Work Phone: Laboratory - Hematology and Cell countson 09-19-2021 Erythrocyte distribution width (RBC) [Entitic vol] 59.4 fL 35.1-43.9 [facility] Work Phone: [phone] Erythrocyte distribution width (RBC) [Ratio] 17.1 % 11.6-14.6 [facility] Work Phone: Immature granulocytes/100 WBC (Bld) 0.600 % 0.0-0.9 [facility] Work Phone: Comment on above: IG% - Immature Granu locytes (promyelocytes, myelocytes and metamyelocytes) > 1% indicates that a LEFT SHIFT is Present. MCH (RBC) [Entitic mass] 29.4 pg 27.0-32.0 [facility] Work Phone: Nucleated RBC/100 WBC (Bld) [Ratio] 0 % 0-5 [facility] Work Phone: MCHC Auto (RBC) [Mass/Vol]on 09-19-2021 MCHC (RBC) [Mass/Vol] 31.0 g/dL 32-36 [facility] Work Phone: No Panel Informationon 09-19 Estimated GFR (MDRD) Amer 175 mL/min >60 [facility] Work Phone: Comment on above: GFR Calc Estimated GFR (MDRD) Non-Af Amer 145 mL/min >60 [facility] Work Phone: Comment on above: Non- GFR Calc Platelets bldon 09-19-2021 Platelets (Bld) [#/Vol] 342 10*3/uL 150-450 [facility] Work Phone: Serum or plasma albumin oral urement (mass/volume)on 09-19-2021 Albumin [Mass/Vol] 2.8 g/dL 3.2-5.0 [facility] Work Phone: Serum or plasma albumin/glob ulin mass ratioon 09-19-2021 Albumin/Globulin [Mass ratio] 0.8 {ratio} 0.9-2.4 [facility] Work Phone: Serum or plasma calcium oral urement (mass/volume)on 09-19-2021 Calcium [Mass/Vol] 9.0 mg/dL 8.5-10.1 [facility] Work Phone: Serum or plasma creatinine m easurement (mass/volume)on 09-19-2021 Creatinine [Mass/Vol] 0.59 mg/dL 0.70-1.30 [facility] Work Phone: Comment on above: The validity of the calculated GFR & GFRAA in patients over 70 years has not been determined. Clinical correlation is essential. Serum or plasma urea nitroge n measurement (mass/volume)on 09-19-2021 Urea nitrogen [Mass/Vol] 9 mg/dL 7-18 [facility] Work Phone: Thin prep Papanicolaou smear with manual screeningon 09-19-2021 Thin prep Papanicolaou smear with manual screening 12 U/L 15-37 [facility] Work Phone: Thin prep Papanicolaou smear with manual screening 8 5-15 [facility] Work Phone: OPERATIVE NOon 08-22-2021 OPERATIVE NO Normal [facility] Basic metabolic 2000 panelon 08-19-2021 Anion gap [Moles/Vol] 10 mmol/L Normal 9-18 [facility] Comment on above: Order Comment: Speci men Type: BLOOD SPECIMENOrdering Facility: [facility] Address: [address] [place] [address] Performed By: #### 2 4321-2 ####[facility] LABORATORYCLIA [id number] [place] [address] [place] Calcium [Mass/Vol] 8.6 mg/dL Normal 8.5-10.2 [facility] Comment on above: Order Comment: Speci men Type: BLOOD SPECIMENOrdering Facility: [facility] Address: [address] [place] [address] Performed By: #### 2 4321-2 ####[facility] LABORATORYCLIA [id number] [place] [address] [place] Chloride [Moles/Vol] 99 mmol/L Normal 97-105 [facility] Comment on above: Order Comment: Speci men Type: BLOOD SPECIMENOrdering Facility: [facility] Address: [address] [place] [address] Performed By: #### 2 4321-2 ####[facility] LABORATORYCLIA [id number] [place] [address] [place] CO2 [Moles/Vol] 29 mmol/L Normal 22-30 [facility] Comment on above: Order Comment: Speci men Type: BLOOD SPECIMENOrdering Facility: [facility] Address: [address] [place] [address] Performed By: #### 2 4321-2 ####[facility] LABORATORYCLIA [id number] [place] [address] [place] Creatinine [Mass/Vol] 0.58 mg/dL Low 0.73-1.22 [facility] Comment on above: Order Comment: Johncara feldman Type: BLOOD SPECIMENOrdering Facility: [facility] Address: [address] [address] Performed By: #### 2 4321-2 ####[facility] LABORATORYCLIA [id number] [place] [id number] [facility] ESTIMATED GLOMERULAR FILTRATION RATE 106 mL/min/1.73m??? Normal >=60 [facility] Comment on above: Order Comment: Johnacra feldman Type: BLOOD SPECIMENOrdering Facility: [facility] Address: [address] [address] Result Comment: Luzmaria mated Glomerular Filtration Rate [...] actual GFR. Performed By: #### 2 4321-2 ####[facility] LABORATORYCLIA [id number] [place] [address] [place] Glucose [Mass/Vol] 101 mg/dL High 74-99 [facility] Comment on above: Order Comment: Shira feldman Type: BLOOD SPECIMENOrdering Facility: [facility] Address: [address] [address] Result Comment: The [place] Diabetes Association (ADA) provides guidance for cutoff [...] Standards of Medical Care in Diabetes 2016, [employer]. Diabetes Care. 2016.39(Suppl 1). Performed By: #### 2 4321-2 ####[facility] LABORATORYCLIA [id number] [address] [place] Potassium [Moles/Vol] 3.5 mmol/L Low 3.7-5.1 [facility] Comment on above: Order Comment: Speci men Type: BLOOD SPECIMENOrdering Facility: [facility] Address: [address] [place] [address] Performed By: #### 2 4321-2 ####[facility] LABORATORYCLIA [id number] [address] [place] Sodium [Moles/Vol] 138 mmol/L Normal 136-144 [facility] Comment on above: Order Comment: Speci men Type: BLOOD SPECIMENOrdering Facility: [facility] Address: [address] [place] [address] Performed By: #### 2 4321-2 ####[facility] LABORATORYCLIA [id number] [address] [place] Urea nitrogen [Mass/Vol] 11 mg/dL Normal 9-24 [facility] Comment on above: Order Comment: Speci men Type: BLOOD SPECIMENOrdering Facility: [facility] Address: [address] [place] [address] Performed By: #### 2 4321-2 ####[facility] LABORATORYCLIA [id number] [address] [place] CASE MANAGEMon 08-19-2021 CASE MANAGEM Normal [facility] CBC W Auto Differential pane l (Bld)on 08-19-2021 Basophils (Bld) [#/Vol] 0.03 10*3/uL Normal <0.11 [facility] Comment on above: Order Comment: Speci men Type: BLOOD SPECIMENOrdering Facility: [facility] Address: [address] [place] [address] Performed By: #### 5 7021-8 ####[facility] LABORATORYCLIA [id number] [address] Basophils/100 WBC (Bld) 0.4 % Normal [facility] Comment on above: Order Comment: Speci men Type: BLOOD SPECIMENOrdering Facility: [facility] Address: [address] [place] [address] Performed By: #### 5 7021-8 ####[facility] LABORATORYCLIA [id number] [address] [place] Differential cell count method Nom (Bld) Auto Normal [facility] Comment on above: Order Comment: Speci men Type: BLOOD SPECIMENOrdering Facility: [facility] Address: [address] [place] [address] Performed By: #### 5 7021-8 ####[facility] LABORATORYCLIA [id number] [address] [place] Eosinophils (Bld) [#/Vol] 0.24 10*3/uL Normal <0.46 [facility] Comment on above: Order Comment: Speci men Type: BLOOD SPECIMENOrdering Facility: [facility] Address: [address] [place] [address] Performed By: #### 5 7021-8 ####[facility] LABORATORYCLIA [id number] [address] [place] Eosinophils/100 WBC (Bld) 3.1 % Normal [facility] Comment on above: Order Comment: Speci men Type: BLOOD SPECIMENOrdering Facility: [facility] Address: [address] [place] [address] Performed By: #### 5 7021-8 ####[facility]ORATORYCLIA [id number] [address] [place] Erythrocyte distribution width (RBC) [Ratio] 17.5 % High 11.5-15.0 [facility] Comment on above: Order Comment: Speci men Type: BLOOD SPECIMENOrdering Facility: [facility] Address: [address] [place] [address] Performed By: #### 5 7021-8 ####[facility]ORATORYCLIA [id number] [address] Hematocrit (Bld) [Volume fraction] 30.2 % Low 39.0-51.0 [facility] Comment on above: Order Comment: Speci men Type: BLOOD SPECIMENOrdering Facility: [facility] Address: [address] [place] [address] Performed By: #### 5 7021-8 ####[facility]ORATORYCLIA [id number] [address] Hemoglobin (Bld) [Mass/Vol] 9.6 g/dL Low 13.0-17.0 [facility] Comment on above: Order Comment: Speci men Type: BLOOD SPECIMENOrdering Facility: [facility] Address: [address] [place] [address] Performed By: #### 5 7021-8 ####[facility]ORATORYCLIA [id number] [address] IMMATURE GRAN % 0.4 % Normal [facility] Comment on above: Order Comment: Speci men Type: BLOOD SPECIMENOrdering Facility: [facility] Address: [address] [place] [address] Performed By: #### 5 7021-8 ####[facility]ORATORYCLIA [id number] [address] IMMATURE GRAN ABS 0.03 k/uL Normal <0.10 [facility] Comment on above: Order Comment: Speci men Type: BLOOD SPECIMENOrdering Facility: [facility] Address: [address] [place] [address] Performed By: #### 5 7021-8 ####[facility]ORATORYCLIA [id number] [address] Lymphocytes (Bld) [#/Vol] 1.71 10*3/uL Normal 1.00-4.00 [facility] Comment on above: Order Comment: Speci men Type: BLOOD SPECIMENOrdering Facility: [facility] Address: [address] [place] [address] Performed By: #### 5 7021-8 ####[facility]ORATORYCLIA [id number] [address] Lymphocytes/100 WBC (Bld) 22.2 % Normal [facility] Comment on above: Order Comment: Speci men Type: BLOOD SPECIMENOrdering Facility: [facility] Address: [address] [place] [address] Performed By: #### 5 7021-8 ####[facility] LABORATORYCLIA [id number] [address] OF [facility] MCH (RBC) [Entitic mass] 29.4 pg Normal 26.0-34.0 [facility] Comment on above: Order Comment: Speci men Type: BLOOD SPECIMENOrdering Facility: [facility] Address: [address] [place] [address] Performed By: #### 5 7021-8 ####[facility]ORATORYCLIA [id number] [address] MCHC (RBC) [Mass/Vol] 31.8 g/dL Normal 30.5-36.0 [facility] Comment on above: Order Comment: Speci men Type: BLOOD SPECIMENOrdering Facility: [facility] Address: [address] [place] [address] Performed By: #### 5 7021-8 ####[facility]ORATORYCLIA [id number] [address] MCV (RBC) [Entitic vol] 92.6 fL Normal 80.0-100.0 [facility] Comment on above: Order Comment: Speci men Type: BLOOD SPECIMENOrdering Facility: [facility] Address: [address] [place] [address] Performed By: #### 5 7021-8 ####[facility]ORATORYCLIA [id number] [address] Monocytes (Bld) [#/Vol] 0.50 10*3/uL Normal <0.87 [facility] Comment on above: Order Comment: Speci men Type: BLOOD SPECIMENOrdering Facility: [facility] Address: [address] [place] [address] Performed By: #### 5 7021-8 ####[facility]ATORYCLIA [id number] [address] [place] Monocytes/100 WBC (Bld) 6.5 % Normal [facility] Comment on above: Order Comment: Speci men Type: BLOOD SPECIMENOrdering Facility: [facility] Address: [address] [place] [address] Performed By: #### 5 7021-8 ####[facility] LABORATORYCLIA [id number] [address] [place] Neutrophils (Bld) [#/Vol] 5.20 10*3/uL Normal 1.45-7.50 [facility] Comment on above: Order Comment: Speci men Type: BLOOD SPECIMENOrdering Facility: [facility] Address: [address] [place] [address] Performed By: #### 5 7021-8 ####[facility]ORATORYCLIA [id number] [address] STATES OF [facility] Neutrophils/100 WBC (Bld) 67.4 % Normal [facility] Comment on above: Order Comment: Speci men Type: BLOOD SPECIMENOrdering Facility: [facility] Address: [address] [place] [address] Performed By: #### 5 7021-8 ####[facility]ATORYCLIA [id number] [address] [place] Nucleated RBC (Bld) [#/Vol] 10*3/uL Normal <0.01 [facility] Comment on above: Order Comment: Speci men Type: BLOOD SPECIMENOrdering Facility: [facility] Address: [address] [place] [address] Performed By: #### 5 7021-8 ####[facility]ORATORYCLIA [id number] [address] [place] Nucleated RBC/100 WBC (Bld) [Ratio] 0.0 /100 WBC Normal [facility] Comment on above: Order Comment: Speci men Type: BLOOD SPECIMENOrdering Facility: [facility] Address: [address] [place] [address] Performed By: #### 5 7021-8 ####[facility] LABORATORYCLIA [id number] [place] [address] [place] Platelet mean volume (Bld) [Entitic vol] 8.9 fL Low 9.0-12.7 [facility] Comment on above: Order Comment: Speci men Type: BLOOD SPECIMENOrdering Facility: [facility] Address: [address] [place] [address] Performed By: #### 5 7021-8 ####[facility]ORATORYCLIA [id number] [address] [place] Platelets (Bld) [#/Vol] 408 10*3/uL High 150-400 [facility] Comment on above: Order Comment: Speci men Type: BLOOD SPECIMENOrdering Facility: [facility] Address: [address] [place] [address] Performed By: #### 5 7021-8 ####[facility]ORATORYCLIA [id number] [address] [place] RBC (Bld) [#/Vol] 3.26 10*6/uL Low 4.20-6.00 [facility] Comment on above: Order Comment: Speci men Type: BLOOD SPECIMENOrdering Facility: [facility] Address: [address] [place] [address] Performed By: #### 5 7021-8 ####[facility]ATORYCLIA [id number] [address] [place] WBC (Bld) [#/Vol] 7.71 10*3/uL Normal 3.70-11.00 [facility] Comment on above: Order Comment: Speci men Type: BLOOD SPECIMENOrdering Facility: [facility] Address: [address] [place] [address] Performed By: #### 5 7021-8 ####[facility]ORATORYCLIA [id number] [place] [address] [place] CNDSon 08-19-2021 CNDS Normal [facility] CONSULT PROGon 08-19-2021 CONSULT PROG Normal [facility] THERAPY NTon 08-19-2021 THERAPY NT Normal [facility] Basic metabolic 2000 panelon 08-18-2021 Anion gap [Moles/Vol] 11 mmol/L Normal 9-18 [facility] Comment on above: Order Comment: Speci men Type: BLOOD SPECIMENOrdering Facility: [facility] Address: [address] [place] [address] Performed By: #### 2 4321-2 ####[facility]ORATORYCLIA [id number] [place] [address] [place] Calcium [Mass/Vol] 8.6 mg/dL Normal 8.5-10.2 [facility] Comment on above: Order Comment: Speci men Type: BLOOD SPECIMENOrdering Facility: [facility] Address: [address] [place] [address] Performed By: #### 2 4321-2 ####[facility]ORATORYCLIA [id number] [place] [address] [place] Chloride [Moles/Vol] 98 mmol/L Normal 97-105 [facility] Comment on above: Order Comment: Speci men Type: BLOOD SPECIMENOrdering Facility: [facility] Address: [address] [place] [address] Performed By: #### 2 4321-2 ####[facility]ORATORYCLIA [id number] [place] [address] [place] CO2 [Moles/Vol] 28 mmol/L Normal 22-30 [facility] Comment on above: Order Comment: Speci men Type: BLOOD SPECIMENOrdering Facility: [facility] Address: [address] [place] [address] Performed By: #### 2 4321-2 ####[facility]ORATORYCLIA [id number] [address] STATES OF [facility] Creatinine [Mass/Vol] 0.56 mg/dL Low 0.73-1.22 [facility] Comment on above: Order Comment: Shira feldman Type: BLOOD SPECIMENOrdering Facility: [facility] Address: [address] [place] [address] Performed By: #### 2 4321-2 ####[facility]ORATORYCLIA [id number] [address] ESTIMATED GLOMERULAR FILTRATION RATE 107 mL/min/1.73m??? Normal >=60 [facility] Comment on above: Order Comment: Shira feldman Type: BLOOD SPECIMENOrdering Facility: [facility] Address: [address] [place] [address] Result Comment: Luzmaria mated Glomerular Filtration Rate [...] actual GFR. Performed By: #### 2 4321-2 ####[facility]ORATORYCLIA [id number] [address] Glucose [Mass/Vol] 113 mg/dL High 74-99 [facility] Comment on above: Order Comment: Shira feldman Type: BLOOD SPECIMENOrdering Facility: [facility] Address: [address] [address] Result Comment: The [place] Diabetes [employer] (ADA) provides guidance for cutoff [...] Standards of Medical Care in Diabetes 2016, [place] [employer]. Diabetes Care. 2016.39(Suppl 1). Performed By: #### 2 4321-2 ####[facility]ORATORYCLIA [id number] [address] STATES OF [facility] Potassium [Moles/Vol] 3.5 mmol/L Low 3.7-5.1 [facility] Comment on above: Order Comment: Speci men Type: BLOOD SPECIMENOrdering Facility: [facility] Address: [address] [place] [address] Performed By: #### 2 4321-2 ####[facility]ORATORYCLIA [id number] [address] STATES [facility] Sodium [Moles/Vol] 137 mmol/L Normal 136-144 [facility] Comment on above: Order Comment: Speci men Type: BLOOD SPECIMENOrdering Facility: [facility] Address: [address] [place] [address] Performed By: #### 2 4321-2 ####[facility]ORATORYCLIA [id number] [address] STATES [facility] Urea nitrogen [Mass/Vol] 10 mg/dL Normal 9-24 [facility] Comment on above: Order Comment: Speci men Type: BLOOD SPECIMENOrdering Facility: [facility] Address: [address] [address] Performed By: #### 2 4321-2 ####[facility] [facility]ORYCLIA [id number] [place] [address] [place] CBC W Auto Differential pane l (Bld)on 08-18-2021 Basophils (Bld) [#/Vol] 10*3/uL Normal <0.11 [facility] Comment on above: Order Comment: Speci men Type: BLOOD SPECIMENOrdering Facility: [facility] Address: [address] [address] Performed By: #### 5 7021-8 ####[facility]ATORYCLIA [id number] [address] STATES [facility] Basophils/100 WBC (Bld) 0.3 % Normal [facility] Comment on above: Order Comment: Speci men Type: BLOOD SPECIMENOrdering Facility: [facility] Address: [address] [place] [address] Performed By: #### 5 7021-8 ####[facility]ORATORYCLIA [id number] [address] [place] Differential cell count method Nom (Bld) Auto Normal [facility] Comment on above: Order Comment: Speci men Type: BLOOD SPECIMENOrdering Facility: [facility] Address: [address] [place] [address] Performed By: #### 5 7021-8 ####[facility]ATORYCLIA [id number] [address] [place] Eosinophils (Bld) [#/Vol] 0.37 10*3/uL Normal <0.46 [facility] Comment on above: Order Comment: Speci men Type: BLOOD SPECIMENOrdering Facility: [facility] Address: [address] [place] [address] Performed By: #### 5 7021-8 ####[facility]ATORYCLIA [id number] [address] Eosinophils/100 WBC (Bld) 4.8 % Normal [facility] Comment on above: Order Comment: Speci men Type: BLOOD SPECIMENOrdering Facility: [facility] Address: [address] [place] [address] Performed By: #### 5 7021-8 ####[facility]ATORYCLIA [id number] [address] [place] Erythrocyte distribution width (RBC) [Ratio] 17.5 % High 11.5-15.0 [facility] Comment on above: Order Comment: Speci men Type: BLOOD SPECIMENOrdering Facility: [facility] Address: [address] [address] Performed By: #### 5 7021-8 ####[facility]ATORYCLIA [id number] [address] Hematocrit (Bld) [Volume fraction] 30.2 % Low 39.0-51.0 [facility] Comment on above: Order Comment: Speci men Type: BLOOD SPECIMENOrdering Facility: [facility] Address: [address] [place] [address] Performed By: #### 5 7021-8 ####[facility]ATORYCLIA [id number] [address] Hemoglobin (Bld) [Mass/Vol] 9.5 g/dL Low 13.0-17.0 [facility] Comment on above: Order Comment: Speci men Type: BLOOD SPECIMENOrdering Facility: [facility] Address: [address] [place] [address] Performed By: #### 5 7021-8 ####[facility]ATORYCLIA [id number] [address] IMMATURE GRAN % 0.4 % Normal [facility] Comment on above: Order Comment: Speci men Type: BLOOD SPECIMENOrdering Facility: [facility] Address: [address] [place] [address] Performed By: #### 5 7021-8 ####[facility]ATORYCLIA [id number] [address] IMMATURE GRAN ABS 0.03 k/uL Normal <0.10 [facility] Comment on above: Order Comment: Speci men Type: BLOOD SPECIMENOrdering Facility: [facility] Address: [address] [place] [address] Performed By: #### 5 7021-8 ####[facility]ORATORYCLIA [id number] [address] OF [facility] Lymphocytes (Bld) [#/Vol] 1.85 10*3/uL Normal 1.00-4.00 [facility] Comment on above: Order Comment: Speci men Type: BLOOD SPECIMENOrdering Facility: [facility] Address: [address] [place] [address] Performed By: #### 5 7021-8 ####[facility]ATORYCLIA [id number] [address] Lymphocytes/100 WBC (Bld) 23.8 % Normal [facility] Comment on above: Order Comment: Speci men Type: BLOOD SPECIMENOrdering Facility: [facility] Address: [address] [place] [address] Performed By: #### 5 7021-8 ####[facility]ORATORYCLIA [id number] [address] STATES OF [facility] MCH (RBC) [Entitic mass] 29.5 pg Normal 26.0-34.0 [facility] Comment on above: Order Comment: Speci men Type: BLOOD SPECIMENOrdering Facility: [facility] Address: [address] [place] [address] Performed By: #### 5 7021-8 ####[facility]ATORYCLIA [id number] [address] STATES OF [facility] MCHC (RBC) [Mass/Vol] 31.5 g/dL Normal 30.5-36.0 [facility] Comment on above: Order Comment: Speci men Type: BLOOD SPECIMENOrdering Facility: [facility] Address: [address] [place] [address] Performed By: #### 5 7021-8 ####[facility]ATORYCLIA [id number] [address] [place] MCV (RBC) [Entitic vol] 93.8 fL Normal 80.0-100.0 [facility] Comment on above: Order Comment: Speci men Type: BLOOD SPECIMENOrdering Facility: [facility] Address: [address] [place] [address] Performed By: #### 5 7021-8 ####[facility]ORATORYCLIA [id number] [address] [place] Monocytes (Bld) [#/Vol] 0.49 10*3/uL Normal <0.87 [facility] Comment on above: Order Comment: Speci men Type: BLOOD SPECIMENOrdering Facility: [facility] Address: [address] [address] Performed By: #### 5 7021-8 ####[facility]ATORYCLIA [id number] [place] [address] [place] Monocytes/100 WBC (Bld) 6.3 % Normal [facility] Comment on above: Order Comment: Speci men Type: BLOOD SPECIMENOrdering Facility: [facility] Address: [facility] [address] Performed By: #### 5 7021-8 ####[facility]ATORYCLIA [id number] [address] [place] Neutrophils (Bld) [#/Vol] 5.00 10*3/uL Normal 1.45-7.50 [facility] Comment on above: Order Comment: Speci men Type: BLOOD SPECIMENOrdering Facility: [facility] Address: [address] [place] [address] Performed By: #### 5 7021-8 ####[facility]ATORYCLIA [id number] [address] [place] Neutrophils/100 WBC (Bld) 64.4 % Normal [facility] Comment on above: Order Comment: Speci men Type: BLOOD SPECIMENOrdering Facility: [facility] Address: [address] [place] [address] Performed By: #### 5 7021-8 ####[facility]ORATORYCLIA [id number] [address] [place] Nucleated RBC (Bld) [#/Vol] 10*3/uL Normal <0.01 [facility] Comment on above: Order Comment: Speci men Type: BLOOD SPECIMENOrdering Facility: [facility] Address: [address] [place] [address] Performed By: #### 5 7021-8 ####[facility]ATORYCLIA [id number] [address] [place] Nucleated RBC/100 WBC (Bld) [Ratio] 0.0 /100 WBC Normal [facility] Comment on above: Order Comment: Speci men Type: BLOOD SPECIMENOrdering Facility: [facility] Address: [address] [place] [address] Performed By: #### 5 7021-8 ####[facility]ATORYCLIA [id number] [address] [place] Platelet mean volume (Bld) [Entitic vol] 9.1 fL Normal 9.0-12.7 [facility] Comment on above: Order Comment: Speci men Type: BLOOD SPECIMENOrdering Facility: [facility] Address: [address] [place] [address] Performed By: #### 5 7021-8 ####[facility]ATORYCLIA [id number] [address] [place] Platelets (Bld) [#/Vol] 391 10*3/uL Normal 150-400 [facility] Comment on above: Order Comment: Speci men Type: BLOOD SPECIMENOrdering Facility: [facility] Address: [address] [place] [address] Performed By: #### 5 7021-8 ####[facility]ATORYCLIA [id number] [address] [place] RBC (Bld) [#/Vol] 3.22 10*6/uL Low 4.20-6.00 [facility] Comment on above: Order Comment: Speci men Type: BLOOD SPECIMENOrdering Facility: [facility] Address: [address] [place] [address] Performed By: #### 5 7021-8 ####[facility]ATORYCLIA [id number] [address] [place] WBC (Bld) [#/Vol] 7.76 10*3/uL Normal 3.70-11.00 [facility] Comment on above: Order Comment: Speci men Type: BLOOD SPECIMENOrdering Facility: [facility] Address: [address] [place] [address] Performed By: #### 5 7021-8 ####[facility]ORATORYCLIA [id number] [place] [address] [place] CONSULT PROGon 08-18-2021 CONSULT PROG Normal [facility] CASE MANAGEMon 08-17-2021 CASE MANAGEM Normal [facility] CBC W Auto Differential pane l (Bld)on 08-17-2021 Basophils (Bld) [#/Vol] 0.04 10*3/uL Normal <0.11 [facility] Comment on above: Order Comment: Speci men Type: BLOOD SPECIMENOrdering Facility: [facility] Address: [address] [place] [address] Performed By: #### 5 7021-8 ####[facility]ATORYCLIA [id number] [place] [address] [place] Basophils/100 WBC (Bld) 0.5 % Normal [facility] Comment on above: Order Comment: Speci men Type: BLOOD SPECIMENOrdering Facility: [facility] Address: [address] [place] [address] Performed By: #### 5 7021-8 ####[facility]ATORYCLIA [id number] [place] [address] [place] Differential cell count method Nom (Bld) Auto Normal [facility] Comment on above: Order Comment: Speci men Type: BLOOD SPECIMENOrdering Facility: [facility] Address: [address] [place] [address] Performed By: #### 5 7021-8 ####[facility]ATORYCLIA [id number] [place] [address] [place] Eosinophils (Bld) [#/Vol] 0.31 10*3/uL Normal <0.46 [facility] Comment on above: Order Comment: Speci men Type: BLOOD SPECIMENOrdering Facility: [facility] Address: [address] [place] [address] Performed By: #### 5 7021-8 ####[facility]ATORYCLIA [id number] [address] Eosinophils/100 WBC (Bld) 3.7 % Normal [facility] Comment on above: Order Comment: Speci men Type: BLOOD SPECIMENOrdering Facility: [facility] Address: [address] [place] [address] Performed By: #### 5 7021-8 ####[facility]ATORYCLIA [id number] [address] Erythrocyte distribution width (RBC) [Ratio] 17.4 % High 11.5-15.0 [facility] Comment on above: Order Comment: Speci men Type: BLOOD SPECIMENOrdering Facility: [facility] Address: [address] [place] [address] Performed By: #### 5 7021-8 ####[facility]ATORYCLIA [id number] [address] Hematocrit (Bld) [Volume fraction] 30.6 % Low 39.0-51.0 [facility] Comment on above: Order Comment: Speci men Type: BLOOD SPECIMENOrdering Facility: [facility] Address: [address] [place] [address] Performed By: #### 5 7021-8 ####[facility]ORYCLIA [id number] [address] Hemoglobin (Bld) [Mass/Vol] 9.6 g/dL Low 13.0-17.0 [facility] Comment on above: Order Comment: Speci men Type: BLOOD SPECIMENOrdering Facility: [facility] Address: [address] [place] [address] Performed By: #### 5 7021-8 ####[facility]ORYCLIA [id number] [address] [place] IMMATURE GRAN % 0.2 % Normal [facility] Comment on above: Order Comment: Speci men Type: BLOOD SPECIMENOrdering Facility: [facility] Address: [address] [place] [address] Performed By: #### 5 7021-8 ####[facility]ATORYCLIA [id number] [address] IMMATURE GRAN ABS <0.03 Normal <0.10 [facility] Comment on above: Order Comment: Speci men Type: BLOOD SPECIMENOrdering Facility: [facility] Address: [address] [place] [address] Performed By: #### 5 7021-8 ####[facility]ATORYCLIA [id number] [address] Lymphocytes (Bld) [#/Vol] 1.66 10*3/uL Normal 1.00-4.00 [facility] Comment on above: Order Comment: Speci men Type: BLOOD SPECIMENOrdering Facility: [facility] Address: [address] [place] [address] Performed By: #### 5 7021-8 ####[facility]ATORYCLIA [id number] [address] Lymphocytes/100 WBC (Bld) 19.9 % Normal [facility] Comment on above: Order Comment: Speci men Type: BLOOD SPECIMENOrdering Facility: [facility] Address: [address] [place] [address] Performed By: #### 5 7021-8 ####[facility]ATORYCLIA [id number] [address] MCH (RBC) [Entitic mass] 28.9 pg Normal 26.0-34.0 [facility] Comment on above: Order Comment: Speci men Type: BLOOD SPECIMENOrdering Facility: [facility] Address: [address] [place] [address] Performed By: #### 5 7021-8 ####[facility]ATORYCLIA [id number] [address] [place] MCHC (RBC) [Mass/Vol] 31.4 g/dL Normal 30.5-36.0 [facility] Comment on above: Order Comment: Speci men Type: BLOOD SPECIMENOrdering Facility: [facility] Address: [address] [place] [address] Performed By: #### 5 7021-8 ####[facility]ORYCLIA [id number] [address] [place] MCV (RBC) [Entitic vol] 92.2 fL Normal 80.0-100.0 [facility] Comment on above: Order Comment: Speci men Type: BLOOD SPECIMENOrdering Facility: [facility] Address: [address] [place] [address] Performed By: #### 5 7021-8 ####[facility]ATORYCLIA [id number] [address] STATES [facility] Monocytes (Bld) [#/Vol] 0.52 10*3/uL Normal <0.87 [facility] Comment on above: Order Comment: Speci men Type: BLOOD SPECIMENOrdering Facility: [facility] Address: [address] [place] [address] Performed By: #### 5 7021-8 ####[facility]ORYCLIA [id number] [address] Monocytes/100 WBC (Bld) 6.2 % Normal [facility] Comment on above: Order Comment: Speci men Type: BLOOD SPECIMENOrdering Facility: [facility] Address: [address] [place] [address] Performed By: #### 5 7021-8 ####[facility]ORYCLIA [id number] [address] [place] Neutrophils (Bld) [#/Vol] 5.78 10*3/uL Normal 1.45-7.50 [facility] Comment on above: Order Comment: Speci men Type: BLOOD SPECIMENOrdering Facility: [facility] Address: [address] [place] [address] Performed By: #### 5 7021-8 ####[facility]ORYCLIA [id number] [address] Neutrophils/100 WBC (Bld) 69.5 % Normal [facility] Comment on above: Order Comment: Speci men Type: BLOOD SPECIMENOrdering Facility: [facility] Address: [address] [place] [address] Performed By: #### 5 7021-8 ####[facility]ORYCLIA [id number] [address] [place] Nucleated RBC (Bld) [#/Vol] 10*3/uL Normal <0.01 [facility] Comment on above: Order Comment: Speci men Type: BLOOD SPECIMENOrdering Facility: [facility] Address: [address] [place] [address] Performed By: #### 5 7021-8 ####[facility]ORYCLIA [id number] [address] Nucleated RBC/100 WBC (Bld) [Ratio] 0.0 /100 WBC Normal [facility] Comment on above: Order Comment: Speci men Type: BLOOD SPECIMENOrdering Facility: [facility] Address: [address] [place] [address] Performed By: #### 5 7021-8 ####[facility]ATORYCLIA [id number] [address] [place] Platelet mean volume (Bld) [Entitic vol] 9.2 fL Normal 9.0-12.7 [facility] Comment on above: Order Comment: Speci men Type: BLOOD SPECIMENOrdering Facility: [facility] Address: [address] [place] [address] Performed By: #### 5 7021-8 ####[facility]ORYCLIA [id number] [address] [place] Platelets (Bld) [#/Vol] 379 10*3/uL Normal 150-400 [facility] Comment on above: Order Comment: Speci men Type: BLOOD SPECIMENOrdering Facility: [facility] Address: [address] [place] [address] Performed By: #### 5 7021-8 ####[facility]ATORYCLIA [id number] [address] STATES OF [facility] RBC (Bld) [#/Vol] 3.32 10*6/uL Low 4.20-6.00 [facility] Comment on above: Order Comment: Speci men Type: BLOOD SPECIMENOrdering Facility: [facility] Address: [address] [place] [address] Performed By: #### 5 7021-8 ####[facility]ATORYCLIA [id number] [address] OF [facility] WBC (Bld) [#/Vol] 8.33 10*3/uL Normal 3.70-11.00 [facility] Comment on above: Order Comment: Speci men Type: BLOOD SPECIMENOrdering Facility: [facility] Address: [address] [place] [address] Performed By: #### 5 7021-8 ####[facility]ORATORYCLIA [id number] [address] [place] CONSULT PROGon 08-17-2021 CONSULT PROG Normal [facility] NUTRITIONon 08-17-2021 NUTRITION Normal [facility] Basic metabolic 2000 panelon 08-16-2021 Anion gap [Moles/Vol] 14 mmol/L Normal 9-18 [facility] Comment on above: Order Comment: Speci men Type: BLOOD SPECIMENOrdering Facility: [facility] Address: [address] [place] [address] Performed By: #### 2 4321-2, 92022-4 ####[facility]ORATORYCLIA [id number] [address] STATES OF [facility] Calcium [Mass/Vol] 8.8 mg/dL Normal 8.5-10.2 [facility] Comment on above: Order Comment: Speci men Type: BLOOD SPECIMENOrdering Facility: [facility] Address: [address] [address] Performed By: #### 2 2, ####[facility]ORATORYCLIA [id number] [address] OF [facility] Chloride [Moles/Vol] 97 mmol/L Normal 97-105 [facility] Comment on above: Order Comment: Speci men Type: BLOOD SPECIMENOrdering Facility: [facility] Address: [address] [place] [address] Performed By: #### 2 4322, ####[facility]ORATORYCLIA [id number] [address] OF [facility] CO2 [Moles/Vol] 27 mmol/L Normal 22-30 [facility] Comment on above: Order Comment: Speci men Type: BLOOD SPECIMENOrdering Facility: [facility] Address: [address] [place] [address] Performed By: #### 2 4320-06, ####[facility]ORATORYCLIA [id number] [address] OF [facility] Creatinine [Mass/Vol] 0.50 mg/dL Low 0.73-1.22 [facility] Comment on above: Order Comment: Speci men Type: BLOOD SPECIMENOrdering Facility: [facility] Address: [address] [place] [address] Performed By: #### 2 4320-06, ####[facility]ORATORYCLIA [id number] [address] ESTIMATED GLOMERULAR FILTRATION RATE 110 mL/min/1.73m??? Normal >=60 [facility] Comment on above: Order Comment: Speci men Type: BLOOD SPECIMENOrdering Facility: [facility] Address: [address] [place] [address] Result Comment: Luzmaria mated Glomerular Filtration Rate [...] actual GFR. Performed By: #### 2 43205-08, ####[facility]ORATORYCLIA [id number] [place] [address] [place] Glucose [Mass/Vol] 101 mg/dL High 74-99 [facility] Comment on above: Order Comment: Speci men Type: BLOOD SPECIMENOrdering Facility: [facility] Address: [address] [place], [place] [address] Result Comment: The [place] Diabetes Association (ADA) provides guidance for cutoff [...] Standards of Medical Care in Diabetes 2016, [place] [employer]. Diabetes Care. 2016.39(Suppl 1). Performed By: #### 2 4320-06, ####[facility] LABORATORYCLIA [id number] [place] [address] [place] Potassium [Moles/Vol] 3.6 mmol/L Low 3.7-5.1 [facility] Comment on above: Order Comment: [facility] Type: BLOOD SPECIMENOrdering Facility: [facility] Address: [address] [place] [address] Performed By: #### 2 4320-06, ####[facility] LABORATORYCLIA [id number] [place] [address] [place] Sodium [Moles/Vol] 138 mmol/L Normal 136-144 [facility] Comment on above: Order Comment: Speci men Type: BLOOD SPECIMENOrdering Facility: [facility] Address: [address] [place] [address] Performed By: #### 2 4321-2, 41911-5 ####[facility] LABORATORYCLIA [id number] [address] STATES OF [facility] Urea nitrogen [Mass/Vol] 11 mg/dL Normal 9-24 [facility] Comment on above: Order Comment: Speci men Type: BLOOD SPECIMENOrdering Facility: [facility] Address: [address] [place] [address] Performed By: #### 2 4321-2, 71975-2 ####[facility] LABORATORYCLIA [id number] [address] [place] CASE MANAGEMon 08-16-2021 CASE MANAGEM Normal [facility] CBC W Auto Differential pane l (Bld)on 08-16-2021 Basophils (Bld) [#/Vol] 0.03 10*3/uL Normal <0.11 [facility] Comment on above: Order Comment: Speci men Type: BLOOD SPECIMENOrdering Facility: [facility] Address: [address] [place] [address] Performed By: #### 5 7021-8 ####[facility] LABORATORYCLIA [id number] [address] [place] Basophils/100 WBC (Bld) 0.4 % Normal [facility] Comment on above: Order Comment: Speci men Type: BLOOD SPECIMENOrdering Facility: [facility] Address: [address] [place] [address] Performed By: #### 5 7021-8 ####[facility] LABORATORYCLIA [id number] [address] [place] [facility] Differential cell count method Nom (Bld) Auto Normal [facility] Comment on above: Order Comment: Speci men Type: BLOOD SPECIMENOrdering Facility: [facility] Address: [address] [place] [address] Performed By: #### 5 7021-8 ####[facility] LABORATORYCLIA [id number] [place] [address] [place] Eosinophils (Bld) [#/Vol] 0.19 10*3/uL Normal <0.46 [facility] Comment on above: Order Comment: Speci men Type: BLOOD SPECIMENOrdering Facility: [facility] Address: [address] [place] [address] Performed By: #### 5 7021-8 ####[facility] LABORATORYCLIA [id number] [address] [place] Eosinophils/100 WBC (Bld) 2.5 % Normal [facility] Comment on above: Order Comment: Speci men Type: BLOOD SPECIMENOrdering Facility: [facility] Address: [address] [place] [address] Performed By: #### 5 7021-8 ####[facility] LABORATORYCLIA [id number] [address] STATES [facility] Erythrocyte distribution width (RBC) [Ratio] 17.1 % High 11.5-15.0 [facility] Comment on above: Order Comment: Speci men Type: BLOOD SPECIMENOrdering Facility: [facility] Address: [address] [place] [address] Performed By: #### 5 7021-8 ####[facility] LABORATORYCLIA [id number] [address] [place] Hematocrit (Bld) [Volume fraction] 29.2 % Low 39.0-51.0 [facility] Comment on above: Order Comment: Speci men Type: BLOOD SPECIMENOrdering Facility: [facility] Address: [address] [place] [address] Performed By: #### 5 7021-8 ####[facility] LABORATORYCLIA [id number] [address] [place] Hemoglobin (Bld) [Mass/Vol] 9.0 g/dL Low 13.0-17.0 [facility] Comment on above: Order Comment: Speci men Type: BLOOD SPECIMENOrdering Facility: [facility] Address: [address] [place] [address] Performed By: #### 5 7021-8 ####[facility]ORATORYCLIA [id number] [address] IMMATURE GRAN % 0.3 % Normal [facility] Comment on above: Order Comment: Speci men Type: BLOOD SPECIMENOrdering Facility: [facility] Address: [address] [place] [address] Performed By: #### 5 7021-8 ####[facility] LABORATORYCLIA [id number] [address] IMMATURE GRAN ABS <0.03 Normal <0.10 [facility] Comment on above: Order Comment: Speci men Type: BLOOD SPECIMENOrdering Facility: [facility] Address: [address] [place] [address] Performed By: #### 5 7021-8 ####[facility] LABORATORYCLIA [id number] [address] Lymphocytes (Bld) [#/Vol] 1.41 10*3/uL Normal 1.00-4.00 [facility] Comment on above: Order Comment: Speci men Type: BLOOD SPECIMENOrdering Facility: [facility] Address: [address] [place] [address] Performed By: #### 5 7021-8 ####[facility] LABORATORYCLIA [id number] [address] Lymphocytes/100 WBC (Bld) 18.4 % Normal [facility] Comment on above: Order Comment: Speci men Type: BLOOD SPECIMENOrdering Facility: [facility] Address: [address] [place] [address] Performed By: #### 5 7021-8 ####[facility] LABORATORYCLIA [id number] [address] [place] MCH (RBC) [Entitic mass] 28.0 pg Normal 26.0-34.0 [facility] Comment on above: Order Comment: Speci men Type: BLOOD SPECIMENOrdering Facility: [facility] Address: [address] [place] [address] Performed By: #### 5 7021-8 ####[facility] LABORATORYCLIA [id number] [address] [place] MCHC (RBC) [Mass/Vol] 30.8 g/dL Normal 30.5-36.0 [facility] Comment on above: Order Comment: Speci men Type: BLOOD SPECIMENOrdering Facility: [facility] Address: [address] [place] [address] Performed By: #### 5 7021-8 ####[facility] LABORATORYCLIA [id number] [address] [place] MCV (RBC) [Entitic vol] 91.0 fL Normal 80.0-100.0 [facility] Comment on above: Order Comment: Speci men Type: BLOOD SPECIMENOrdering Facility: [facility] Address: [address] [place] [address] Performed By: #### 5 7021-8 ####[facility] LABORATORYCLIA [id number] [address] OF [facility] Monocytes (Bld) [#/Vol] 0.47 10*3/uL Normal <0.87 [facility] Comment on above: Order Comment: Speci men Type: BLOOD SPECIMENOrdering Facility: [facility] Address: [address] [place] [address] Performed By: #### 5 7021-8 ####[facility] LABORATORYCLIA [id number] [address] Monocytes/100 WBC (Bld) 6.1 % Normal [facility] Comment on above: Order Comment: Speci men Type: BLOOD SPECIMENOrdering Facility: [facility] Address: [address] [place] [address] Performed By: #### 5 7021-8 ####[facility] LABORATORYCLIA [id number] [address] [place] Neutrophils (Bld) [#/Vol] 5.55 10*3/uL Normal 1.45-7.50 [facility] Comment on above: Order Comment: Speci men Type: BLOOD SPECIMENOrdering Facility: [facility] Address: [address] [place] [address] Performed By: #### 5 7021-8 ####[facility] LABORATORYCLIA [id number] [address] [place] Neutrophils/100 WBC (Bld) 72.3 % Normal [facility] Comment on above: Order Comment: Speci men Type: BLOOD SPECIMENOrdering Facility: [facility] Address: [address] [place] [address] Performed By: #### 5 7021-8 ####[facility] LABORATORYCLIA [id number] [address] [place] Nucleated RBC (Bld) [#/Vol] 10*3/uL Normal <0.01 [facility] Comment on above: Order Comment: Speci men Type: BLOOD SPECIMENOrdering Facility: [facility] Address: [address] [place] [address] Performed By: #### 5 7021-8 ####[facility] LABORATORYCLIA [id number] [address] [place] Nucleated RBC/100 WBC (Bld) [Ratio] 0.0 /100 WBC Normal [facility] Comment on above: Order Comment: Speci men Type: BLOOD SPECIMENOrdering Facility: [facility] Address: [address] [place] [address] Performed By: #### 5 7021-8 ####[facility] LABORATORYCLIA [id number] [address] [place] Platelet mean volume (Bld) [Entitic vol] 9.3 fL Normal 9.0-12.7 [facility] Comment on above: Order Comment: Speci men Type: BLOOD SPECIMENOrdering Facility: [facility] Address: [address] [place], [place] [address] Performed By: #### 5 7021-8 ####[facility] LABORATORYCLIA [id number] [address] [place] Platelets (Bld) [#/Vol] 319 10*3/uL Normal 150-400 [facility] Comment on above: Order Comment: Speci men Type: BLOOD SPECIMENOrdering Facility: [facility] Address: [address] [place] [address] Performed By: #### 5 7021-8 ####[facility] LABORATORYCLIA [id number] [address] [place] RBC (Bld) [#/Vol] 3.21 10*6/uL Low 4.20-6.00 [facility] Comment on above: Order Comment: Speci men Type: BLOOD SPECIMENOrdering Facility: [facility] Address: [address] [place] [address] Performed By: #### 5 7021-8 ####[facility] LABORATORYCLIA [id number] [address] OF [facility] WBC (Bld) [#/Vol] 7.67 10*3/uL Normal 3.70-11.00 [facility] Comment on above: Order Comment: Speci men Type: BLOOD SPECIMENOrdering Facility: [facility] Address: [address] [place] [address] Performed By: #### 5 7021-8 ####[facility] LABORATORYCLIA [id number] [address] Basophils (Bld) [#/Vol] 0.04 10*3/uL Normal <0.11 [facility] Comment on above: Order Comment: Speci men Type: BLOOD SPECIMENOrdering Facility: [facility] Address: [address] [place] [address] Performed By: #### 5 7021-8 ####[facility] LABORATORYCLIA [id number] [address] Basophils/100 WBC (Bld) 0.5 % Normal [facility] Comment on above: Order Comment: Speci men Type: BLOOD SPECIMENOrdering Facility: [facility] Address: [address] [place] [address] Performed By: #### 5 7021-8 ####[facility] LABORATORYCLIA [id number] [address] Differential cell count method Nom (Bld) Auto Normal [facility] Comment on above: Order Comment: Speci men Type: BLOOD SPECIMENOrdering Facility: [facility] Address: [address] [place] [address] Performed By: #### 5 7021-8 ####[facility] LABORATORYCLIA [id number] [address] OF [place] Eosinophils (Bld) [#/Vol] 0.19 10*3/uL Normal <0.46 [facility] Comment on above: Order Comment: Speci men Type: BLOOD SPECIMENOrdering Facility: [facility] Address: [address] [place] [address] Performed By: #### 5 7021-8 ####[facility] LABORATORYCLIA [id number] [address] Eosinophils/100 WBC (Bld) 2.5 % Normal [facility] Comment on above: Order Comment: Speci men Type: BLOOD SPECIMENOrdering Facility: [facility] Address: [address] [place] [address] Performed By: #### 5 7021-8 ####[facility] LABORATORYCLIA [id number] [address] [place] Erythrocyte distribution width (RBC) [Ratio] 17.2 % High 11.5-15.0 [facility] Comment on above: Order Comment: Speci men Type: BLOOD SPECIMENOrdering Facility: [facility] Address: [address] [place] [address] Performed By: #### 5 7021-8 ####[facility] LABORATORYCLIA [id number] [address] Hematocrit (Bld) [Volume fraction] 29.5 % Low 39.0-51.0 [facility] Comment on above: Order Comment: Speci men Type: BLOOD SPECIMENOrdering Facility: [facility] Address: [address] [place] [address] Performed By: #### 5 7021-8 ####[facility] LABORATORYCLIA [id number] [address] [place] Hemoglobin (Bld) [Mass/Vol] 9.2 g/dL Low 13.0-17.0 [facility] Comment on above: Order Comment: Speci men Type: BLOOD SPECIMENOrdering Facility: [facility] Address: [address] [place] [address] Performed By: #### 5 7021-8 ####[facility] LABORATORYCLIA [id number] [address] IMMATURE GRAN % 0.4 % Normal [facility] Comment on above: Order Comment: Speci men Type: BLOOD SPECIMENOrdering Facility: [facility] Address: [address] [place] [address] Performed By: #### 5 7021-8 ####[facility] LABORATORYCLIA [id number] [address] IMMATURE GRAN ABS 0.03 k/uL Normal <0.10 [facility] Comment on above: Order Comment: Speci men Type: BLOOD SPECIMENOrdering Facility: [facility] Address: [address] [place] [address] Performed By: #### 5 7021-8 ####[facility] LABORATORYCLIA [id number] [address] [place] Lymphocytes (Bld) [#/Vol] 1.50 10*3/uL Normal 1.00-4.00 [facility] Comment on above: Order Comment: Speci men Type: BLOOD SPECIMENOrdering Facility: [facility] Address: [address] [place] [address] Performed By: #### 5 7021-8 ####[facility] LABORATORYCLIA [id number] [address] Lymphocytes/100 WBC (Bld) 19.7 % Normal [facility] Comment on above: Order Comment: Speci men Type: BLOOD SPECIMENOrdering Facility: [facility] Address: [address] [place] [address] Performed By: #### 5 7021-8 ####[facility] LABORATORYCLIA [id number] [address] MCH (RBC) [Entitic mass] 28.3 pg Normal 26.0-34.0 [facility] Comment on above: Order Comment: Speci men Type: BLOOD SPECIMENOrdering Facility: [facility] Address: [address] [place] [address] Performed By: #### 5 7021-8 ####[facility] LABORATORYCLIA [id number] [address] MCHC (RBC) [Mass/Vol] 31.2 g/dL Normal 30.5-36.0 [facility] Comment on above: Order Comment: Speci men Type: BLOOD SPECIMENOrdering Facility: [facility] Address: [address] [place] [address] Performed By: #### 5 7021-8 ####[facility] LABORATORYCLIA [id number] [address] MCV (RBC) [Entitic vol] 90.8 fL Normal 80.0-100.0 [facility] Comment on above: Order Comment: Speci men Type: BLOOD SPECIMENOrdering Facility: [facility] Address: [address] [place] [address] Performed By: #### 5 7021-8 ####[facility] LABORATORYCLIA [id number] [address] Monocytes (Bld) [#/Vol] 0.49 10*3/uL Normal <0.87 [facility] Comment on above: Order Comment: Speci men Type: BLOOD SPECIMENOrdering Facility: [facility] Address: [address] [place] [address] Performed By: #### 5 7021-8 ####[facility] LABORATORYCLIA [id number] [address] [place] Monocytes/100 WBC (Bld) 6.4 % Normal [facility] Comment on above: Order Comment: Speci men Type: BLOOD SPECIMENOrdering Facility: [facility] Address: [address] [place] [address] Performed By: #### 5 7021-8 ####[facility] LABORATORYCLIA [id number] [place] [address] [place] Neutrophils (Bld) [#/Vol] 5.38 10*3/uL Normal 1.45-7.50 [facility] Comment on above: Order Comment: Speci men Type: BLOOD SPECIMENOrdering Facility: [facility] Address: [address] [place] [address] Performed By: #### 5 7021-8 ####[facility] LABORATORYCLIA [id number] [address] [place] Neutrophils/100 WBC (Bld) 70.5 % Normal [facility] Comment on above: Order Comment: Speci men Type: BLOOD SPECIMENOrdering Facility: [facility] Address: [address] [place] [address] Performed By: #### 5 7021-8 ####[facility] LABORATORYCLIA [id number] [place] [address] [place] Nucleated RBC (Bld) [#/Vol] 10*3/uL Normal <0.01 [facility] Comment on above: Order Comment: Speci men Type: BLOOD SPECIMENOrdering Facility: [facility] Address: [address] [place] [address] Performed By: #### 5 7021-8 ####[facility] LABORATORYCLIA [id number] [address] [place] Nucleated RBC/100 WBC (Bld) [Ratio] 0.0 /100 WBC Normal [facility] Comment on above: Order Comment: Speci men Type: BLOOD SPECIMENOrdering Facility: [facility] Address: [address] [place] [address] Performed By: #### 5 7021-8 ####[facility] LABORATORYCLIA [id number] [place] [address] [place] Platelet mean volume (Bld) [Entitic vol] 9.0 fL Normal 9.0-12.7 [facility] Comment on above: Order Comment: Speci men Type: BLOOD SPECIMENOrdering Facility: [facility] Address: [address] [place] [address] Performed By: #### 5 7021-8 ####[facility] LABORATORYCLIA [id number] [place] [address] [place] Platelets (Bld) [#/Vol] 316 10*3/uL Normal 150-400 [facility] Comment on above: Order Comment: Speci men Type: BLOOD SPECIMENOrdering Facility: [facility] Address: [address] [place] [address] Performed By: #### 5 7021-8 ####[facility] LABORATORYCLIA [id number] [place] [address] [place] RBC (Bld) [#/Vol] 3.25 10*6/uL Low 4.20-6.00 [facility] Comment on above: Order Comment: Speci men Type: BLOOD SPECIMENOrdering Facility: [facility] Address: [address] [place], [place] [address] Performed By: #### 5 7021-8 ####[facility] LABORATORYCLIA [id number] [place] [address] [place] WBC (Bld) [#/Vol] 7.63 10*3/uL Normal 3.70-11.00 [facility] Comment on above: Order Comment: Speci men Type: BLOOD SPECIMENOrdering Facility: [facility] Address: [address] [place] [address] Performed By: #### 5 7021-8 ####[facility] LABORATORYCLIA [id number] [address] STATES OF [facility] Basophils (Bld) [#/Vol] Normal <0.11 [facility] Comment on above: Order Comment: Speci men Type: BLOOD SPECIMENOrdering Facility: [facility] Address: [address] [place] [address] Result Comment: Carolina Owens RN informed lab after results autoverified that she rd on the wrong patient. Lab to credit. Nurse to redraw on correct patient.Corrected result: Previously reported as 0.04 k/uL on 08/16/2021 at 4:44 AM EDT. Performed By: #### 5 7021-8 ####[facility] LABORATORYCLIA [id number] [address] Basophils/100 WBC (Bld) Normal [facility] Comment on above: Order Comment: Speci men Type: BLOOD SPECIMENOrdering Facility: [facility] Address: [address] [place] [address] Result Comment: Tati ected result: Previously reported as 0.4 % on 08/16/2021 at 4:44 AM EDT. Performed By: #### 5 7021-8 ####[facility] LABORATORYCLIA [id number] [address] STATES OF [facility] CBC W Differential panel, method unspecified (Bld) Normal [facility] Comment on above: Order Comment: Speci men Type: BLOOD SPECIMENOrdering Facility: [facility] Address: [address] [place] [address] Result Comment: Carolina Owens RN informed lab after results autoverified that she rd on the wrong patient. Lab to credit. Nurse to redraw on correct patient. Performed By: #### 5 7021-8 ####[facility] LABORATORYCLIA [id number] [address] [place] Differential cell count method Nom (Bld) Normal [facility] Comment on above: Order Comment: Speci men Type: BLOOD SPECIMENOrdering Facility: [facility] Address: [address] [place] [address] Result Comment: Carolina Owens RN informed lab after results autoverified that she rd on the wrong patient. Lab to credit. Nurse to redraw on correct patient.Corrected result: Previously reported as Auto on 08/16/2021 at 4:44 AM EDT. Performed By: #### 5 7021-8 ####[facility] LABORATORYCLIA [id number] [address] [place] Eosinophils (Bld) [#/Vol] Normal <0.46 [facility] Comment on above: Order Comment: Speci francia Type: BLOOD SPECIMENOrdering Facility: [facility] Address: [address] [place] [address] Result Comment: Carolina Owens RN informed lab after results autoverified that she rd on the wrong patient. Lab to credit. Nurse to redraw on correct patient.Corrected result: Previously reported as 0.07 k/uL on 08/16/2021 at 4:44 AM EDT. Performed By: #### 5 7021-8 ####[facility] LABORATORYCLIA [id number] [address] STATES OF [facility] Eosinophils/100 WBC (Bld) Normal [facility] Comment on above: Order Comment: Speci francia Type: BLOOD SPECIMENOrdering Facility: [facility] Address: [address] [place] [address] Result Comment: Carolina Owens RN informed lab after results autoverified that she rd on the wrong patient. Lab to credit. Nurse to redraw on correct patient.Corrected result: Previously reported as 0.7 % on 08/16/2021 at 4:44 AM EDT. Performed By: #### 5 7021-8 ####[facility]ORATORYCLIA [id number] [address] [place] Erythrocyte distribution width (RBC) [Ratio] Normal 11.5-15.0 [facility] Comment on above: Order Comment: Speci men Type: BLOOD SPECIMENOrdering Facility: [facility] Address: [address] [place] [address] Result Comment: Carolina Owens RN informed lab after results autoverified that she rd on the wrong patient. Lab to credit. Nurse to redraw on correct patient.Corrected result: Previously reported as 14.2 % on 08/16/2021 at 4:44 AM EDT. Performed By: #### 5 7021-8 ####[facility] LABORATORYCLIA [id number] [address] Hematocrit (Bld) [Volume fraction] Normal 39.0-51.0 [facility] Comment on above: Order Comment: Speci men Type: BLOOD SPECIMENOrdering Facility: [facility] Address: [address] [place] [address] Result Comment: Carolina Owens RN informed lab after results autoverified that she rd on the wrong patient. Lab to credit. Nurse to redraw on correct patient.Corrected result: Previously reported as 34.3 % on 08/16/2021 at 4:44 AM EDT. Performed By: #### 5 7021-8 ####[facility] LABORATORYCLIA [id number] [address] STATES OF [facility] Hemoglobin (Bld) [Mass/Vol] Normal 13.0-17.0 [facility] Comment on above: Order Comment: Speci men Type: BLOOD SPECIMENOrdering Facility: [facility] Address: [address] [place] [address] Result Comment: Carolina Owens RN informed lab after results autoverified that she rd on the wrong patient. Lab to credit. Nurse to redraw on correct patient.Corrected result: Previously reported as 11.2 g/dL on 08/16/2021 at 4:44 AM EDT. Performed By: #### 5 7021-8 ####[facility]ORATORYCLIA [id number] [address] [place] IMMATURE GRAN % Normal [facility] Comment on above: Order Comment: Speci men Type: BLOOD SPECIMENOrdering Facility: [facility] Address: [address] [place] [address] Result Comment: Carolina Owens RN informed lab after results autoverified that she rd on the wrong patient. Lab to credit. Nurse to redraw on correct patient.Corrected result: Previously reported as 0.8 % on 08/16/2021 at 4:44 AM EDT. Performed By: #### 5 7021-8 ####[facility] LABORATORYCLIA [id number] [address] [place] IMMATURE GRAN ABS Normal <0.10 [facility] Comment on above: Order Comment: Speci men Type: BLOOD SPECIMENOrdering Facility: [facility] Address: [address] [place] [address] Result Comment: Tati ected result: Previously reported as 0.08 k/uL on 08/16/2021 at 4:44 AM EDT. Performed By: #### 5 7021-8 ####[facility] LABORATORYCLIA [id number] [address] STATES OF [facility] Lymphocytes (Bld) [#/Vol] Normal 1.00-4.00 [facility] Comment on above: Order Comment: Speci men Type: BLOOD SPECIMENOrdering Facility: [facility] Address: [address] [place] [address] Result Comment: Carolina Owens RN informed lab after results autoverified that she rd on the wrong patient. Lab to credit. Nurse to redraw on correct patient.Corrected result: Previously reported as 1.17 k/uL on 08/16/2021 at 4:44 AM EDT. Performed By: #### 5 7021-8 ####[facility] LABORATORYCLIA [id number] [address] [place] Lymphocytes/100 WBC (Bld) Normal [facility] Comment on above: Order Comment: Speci men Type: BLOOD SPECIMENOrdering Facility: [facility] Address: [address] [place] [address] Result Comment: Carolina Owens RN informed lab after results autoverified that she rd on the wrong patient. Lab to credit. Nurse to redraw on correct patient.Corrected result: Previously reported as 12.0 % on 08/16/2021 at 4:44 AM EDT. Performed By: #### 5 7021-8 ####[facility] LABORATORYCLIA [id number] [address] [place] [facility] MCHC (RBC) [Mass/Vol] Normal 30.5-36.0 [facility] Comment on above: Order Comment: Speci men Type: BLOOD SPECIMENOrdering Facility: [facility] Address: [address] [place] [address] Result Comment: Carolina Owens RN informed lab after results autoverified that she rd on the wrong patient. Lab to credit. Nurse to redraw on correct patient.Corrected result: Previously reported as 32.7 g/dL on 08/16/2021 at 4:44 AM EDT. Performed By: #### 5 7021-8 ####[facility] LABORATORYCLIA [id number] [address] MCV (RBC) [Entitic vol] Normal 80.0-100.0 [facility] Comment on above: Order Comment: Speci men Type: BLOOD SPECIMENOrdering Facility: [facility] Address: [address] [place] [address] Result Comment: Carolina Owens RN informed lab after results autoverified that she rd on the wrong patient. Lab to credit. Nurse to redraw on correct patient.Corrected result: Previously reported as 94.2 fL on 08/16/2021 at 4:44 AM EDT. Performed By: #### 5 7021-8 ####[facility] LABORATORYCLIA [id number] [address] STATES OF [facility] Monocytes (Bld) [#/Vol] Normal <0.87 [facility] Comment on above: Order Comment: Speci men Type: BLOOD SPECIMENOrdering Facility: [facility] Address: [address] [place] [address] Result Comment: Carolina Owens RN informed lab after results autoverified that she rd on the wrong patient. Lab to credit. Nurse to redraw on correct patient.Corrected result: Previously reported as 0.99 k/uL on 08/16/2021 at 4:44 AM EDT. Performed By: #### 5 7021-8 ####[facility] LABORATORYCLIA [id number] [place] [address] [place] Monocytes/100 WBC (Bld) Normal [facility] Comment on above: Order Comment: Speci men Type: BLOOD SPECIMENOrdering Facility: [facility] Address: [address] [place] [address] Result Comment: Carolina Owens RN informed lab after results autoverified that she rd on the wrong patient. Lab to credit. Nurse to redraw on correct patient.Corrected result: Previously reported as 10.2 % on 08/16/2021 at 4:44 AM EDT. Performed By: #### 5 7021-8 ####[facility] LABORATORYCLIA [id number] [place] [address] [place] Neutrophils (Bld) [#/Vol] Normal 1.45-7.50 [facility] Comment on above: Order Comment: Speci men Type: BLOOD SPECIMENOrdering Facility: [facility] Address: [address] [place] [address] Result Comment: Carolina Owens RN informed lab after results autoverified that she rd on the wrong patient. Lab to credit. Nurse to redraw on correct patient.Corrected result: Previously reported as 7.40 k/uL on 08/16/2021 at 4:44 AM EDT. Performed By: #### 5 7021-8 ####[facility] LABORATORYCLIA [id number] [place] [address] [place] Neutrophils/100 WBC (Bld) Normal [facility] Comment on above: Order Comment: Speci men Type: BLOOD SPECIMENOrdering Facility: [facility] Address: [address] [place] [address] Result Comment: Carolina Owens RN informed lab after results autoverified that she rd on the wrong patient. Lab to credit. Nurse to redraw on correct patient.Corrected result: Previously reported as 75.9 % on 08/16/2021 at 4:44 AM EDT. Performed By: #### 5 7021-8 ####[facility] LABORATORYCLIA [id number] [address] [place] Platelet mean volume (Bld) [Entitic vol] Normal 9.0-12.7 [facility] Comment on above: Order Comment: Speci men Type: BLOOD SPECIMENOrdering Facility: [facility] Address: [address] [place] [address] Result Comment: Carolina Owens RN informed lab after results autoverified that she rd on the wrong patient. Lab to credit. Nurse to redraw on correct patient.Corrected result: Previously reported as 9.1 fL on 08/16/2021 at 4:44 AM EDT. Performed By: #### 5 7021-8 ####[facility] LABORATORYCLIA [id number] [address] Platelets (Bld) [#/Vol] Normal 150-400 [facility] Comment on above: Order Comment: Speci men Type: BLOOD SPECIMENOrdering Facility: [facility] Address: [address] [place] [address] Result Comment: Carolina Owens RN informed lab after results autoverified that she rd on the wrong patient. Lab to credit. Nurse to redraw on correct patient.Corrected result: Previously reported as 338 k/uL on 08/16/2021 at 4:44 AM EDT. Performed By: #### 5 7021-8 ####[facility] LABORATORYCLIA [id number] [address] [place] RBC (Bld) [#/Vol] Normal 4.20-6.00 [facility] Comment on above: Order Comment: Speci men Type: BLOOD SPECIMENOrdering Facility: [facility] Address: [address] [place] [address] Result Comment: Carolina Owens RN informed lab after results autoverified that she rd on the wrong patient. Lab to credit. Nurse to redraw on correct patient.Corrected result: Previously reported as 3.64 m/uL on 08/16/2021 at 4:44 AM EDT. Performed By: #### 5 7021-8 ####[facility] LABORATORYCLIA [id number] [address] [place] WBC (Bld) [#/Vol] Normal 3.70-11.00 [facility] Comment on above: Order Comment: Speci men Type: BLOOD SPECIMENOrdering Facility: [facility] Address: [address] [place] [address] Result Comment: Carolina Owens RN informed lab after results autoverified that she rd on the wrong patient. Lab to credit. Nurse to redraw on correct patient.Corrected result: Previously reported as 9.75 k/uL on 08/16/2021 at 4:44 AM EDT. Performed By: #### 5 7021-8 ####[facility]ORATORYCLIA [id number] [address] CONSULT PROGon 08-16-2021 CONSULT PROG Normal [facility] Magnesium SerPl-mCncon 08-16 Magnesium [Mass/Vol] 1.8 mg/dL Normal 1.7-2.3 [facility] Comment on above: Order Comment: Speci men Type: BLOOD SPECIMENOrdering Facility: [facility] Address: [address] [place] [address] Performed By: #### 2 4321-2, 64237-7 ####[facility] LABORATORYCLIA [id number] [address] [place] NURSING PROGon 08-16-2021 NURSING PROG Normal [facility] Basic metabolic 2000 panelon 08-15-2021 Anion gap [Moles/Vol] 13 mmol/L Normal 9-18 [facility] Comment on above: Order Comment: Speci men Type: BLOOD SPECIMENOrdering Facility: [facility] Address: [address] [place] [address] Performed By: #### 2 4321-2 ####[facility]ORATORYCLIA [id number] [place] [address] [place] Calcium [Mass/Vol] 9.0 mg/dL Normal 8.5-10.2 [facility] Comment on above: Order Comment: Speci men Type: BLOOD SPECIMENOrdering Facility: [facility] Address: [address] [place] [address] Performed By: #### 2 4321-2 ####[facility]ORATORYCLIA [id number] [place] [address] [place] Chloride [Moles/Vol] 95 mmol/L Low 97-105 [facility] Comment on above: Order Comment: Speci men Type: BLOOD SPECIMENOrdering Facility: [facility] Address: [address] [place] [address] Performed By: #### 2 4321-2 ####[facility] LABORATORYCLIA [id number] [address] STATES [place] CO2 [Moles/Vol] 28 mmol/L Normal 22-30 [facility] Comment on above: Order Comment: Speci men Type: BLOOD SPECIMENOrdering Facility: [facility] Address: [address] [place] [address] Performed By: #### 2 4321-2 ####[facility]ORATORYCLIA [id number] [address] [place] Creatinine [Mass/Vol] 0.50 mg/dL Low 0.73-1.22 [facility] Comment on above: Order Comment: Speci men Type: BLOOD SPECIMENOrdering Facility: [facility] Address: [address] [place] [address] Performed By: #### 2 4321-2 ####[facility]ORATORYCLIA [id number] [address] ESTIMATED GLOMERULAR FILTRATION RATE 110 mL/min/1.73m??? Normal >=60 [facility] Comment on above: Order Comment: Speci men Type: BLOOD SPECIMENOrdering Facility: [facility] Address: [address] [place] [address] Result Comment: Luzmaria mated Glomerular Filtration Rate [...] actual GFR. Performed By: #### 2 4321-2 ####[facility]PITALCLIA [id number] [place] [address] [place] Glucose [Mass/Vol] 106 mg/dL High 74-99 [facility] Comment on above: Order Comment: Shira feldman Type: BLOOD SPECIMENOrdering Facility: [facility] Address: [address] [address] Result Comment: The [employer] Diabetes Association (ADA) provides guidance for cutoff [...] Standards of Medical Care in Diabetes 2016, [employer]. Diabetes Care. 2016.39(Suppl 1). Performed By: #### 2 4321-2 ####[facility] LABORATORYIA [id number] [place] [id number] [place] Potassium [Moles/Vol] 3.3 mmol/L Low 3.7-5.1 [facility] Comment on above: Order Comment: Shira feldman Type: BLOOD SPECIMENOrdering Facility: [facility] Address: [address] [address] Performed By: #### 2 4321-2 ####[facility] LABORATORYCLIA [id number] [place] [id number] [place] Sodium [Moles/Vol] 136 mmol/L Normal 136-144 [facility] Comment on above: Order Comment: Speci men Type: BLOOD SPECIMENOrdering Facility: [facility] Address: [address] [address] Performed By: #### 2 4321-2 ####[facility] LABORATORYCLIA [id number] [place] [address] [place] Urea nitrogen [Mass/Vol] 11 mg/dL Normal 9-24 [facility] Comment on above: Order Comment: Speci men Type: BLOOD SPECIMENOrdering Facility: [facility] Address: [address] [place] [address] Performed By: #### 2 4321-2 ####[facility] LABORATORYCLIA [id number] [address] [place] CASE MANAGEMon 08-15-2021 CASE MANAGEM Normal [facility] CBC W Auto Differential pane l (Bld)on 08-15-2021 Basophils (Bld) [#/Vol] 0.03 10*3/uL Normal <0.11 [facility] Comment on above: Order Comment: Speci men Type: BLOOD SPECIMENOrdering Facility: [facility] Address: [address] [place] [address] Performed By: #### 5 7021-8 ####[facility]ORATORYCLIA [id number] [address] [place] Basophils/100 WBC (Bld) 0.4 % Normal [facility] Comment on above: Order Comment: Speci men Type: BLOOD SPECIMENOrdering Facility: [facility] Address: [address] [place] [address] Performed By: #### 5 7021-8 ####[facility] LABORATORYCLIA [id number] [place] [address] [place] Differential cell count method Nom (Bld) Auto Normal [facility] Comment on above: Order Comment: Speci men Type: BLOOD SPECIMENOrdering Facility: [facility] Address: [address] [place] [address] Performed By: #### 5 7021-8 ####[facility]ORATORYCLIA [id number] [address] STATES OF [facility] Eosinophils (Bld) [#/Vol] 0.20 10*3/uL Normal <0.46 [facility] Comment on above: Order Comment: Speci men Type: BLOOD SPECIMENOrdering Facility: [facility] Address: [address] [place] [address] Performed By: #### 5 7021-8 ####[facility] LABORATORYCLIA [id number] [address] Eosinophils/100 WBC (Bld) 2.5 % Normal [facility] Comment on above: Order Comment: Speci men Type: BLOOD SPECIMENOrdering Facility: [facility] Address: [address] [place] [address] Performed By: #### 5 7021-8 ####[facility] LABORATORYCLIA [id number] [address] Erythrocyte distribution width (RBC) [Ratio] 16.7 % High 11.5-15.0 [facility] Comment on above: Order Comment: Speci men Type: BLOOD SPECIMENOrdering Facility: [facility] Address: [address] [place] [address] Performed By: #### 5 7021-8 ####[facility] LABORATORYCLIA [id number] [address] Hematocrit (Bld) [Volume fraction] 30.3 % Low 39.0-51.0 [facility] Comment on above: Order Comment: Speci men Type: BLOOD SPECIMENOrdering Facility: [facility] Address: [address] [place] [address] Performed By: #### 5 7021-8 ####[facility]ORATORYCLIA [id number] [address] [place] Hemoglobin (Bld) [Mass/Vol] 9.4 g/dL Low 13.0-17.0 [facility] Comment on above: Order Comment: Speci men Type: BLOOD SPECIMENOrdering Facility: [facility] Address: [address] [place] [address] Performed By: #### 5 7021-8 ####[facility] LABORATORYCLIA [id number] [address] IMMATURE GRAN % 0.4 % Normal [facility] Comment on above: Order Comment: Speci men Type: BLOOD SPECIMENOrdering Facility: [facility] Address: [address] [place] [address] Performed By: #### 5 7021-8 ####[facility]ORATORYCLIA [id number] [address] IMMATURE GRAN ABS 0.03 k/uL Normal <0.10 [facility] Comment on above: Order Comment: Speci men Type: BLOOD SPECIMENOrdering Facility: [facility] Address: [address] [place] [address] Performed By: #### 5 7021-8 ####[facility]ORATORYCLIA [id number] [address] Lymphocytes (Bld) [#/Vol] 1.50 10*3/uL Normal 1.00-4.00 [facility] Comment on above: Order Comment: Speci men Type: BLOOD SPECIMENOrdering Facility: [facility] Address: [address] [place] [address] Performed By: #### 5 7021-8 ####[facility] LABORATORYCLIA [id number] [address] Lymphocytes/100 WBC (Bld) 18.5 % Normal [facility] Comment on above: Order Comment: Speci men Type: BLOOD SPECIMENOrdering Facility: [facility] Address: [address] [place] [address] Performed By: #### 5 7021-8 ####[facility] LABORATORYCLIA [id number] [address] [place] MCH (RBC) [Entitic mass] 29.0 pg Normal 26.0-34.0 [facility] Comment on above: Order Comment: Speci men Type: BLOOD SPECIMENOrdering Facility: [facility] Address: [address] [place] [address] Performed By: #### 5 7021-8 ####[facility] LABORATORYCLIA [id number] [address] STATES OF [facility] MCHC (RBC) [Mass/Vol] 31.0 g/dL Normal 30.5-36.0 [facility] Comment on above: Order Comment: Speci men Type: BLOOD SPECIMENOrdering Facility: [facility] Address: [address] [place] [address] Performed By: #### 5 7021-8 ####[facility]ORATORYCLIA [id number] [address] [place] MCV (RBC) [Entitic vol] 93.5 fL Normal 80.0-100.0 [facility] Comment on above: Order Comment: Speci men Type: BLOOD SPECIMENOrdering Facility: [facility] Address: [address] [place] [address] Performed By: #### 5 7021-8 ####[facility]ORATORYCLIA [id number] [address] [place] Monocytes (Bld) [#/Vol] 0.47 10*3/uL Normal <0.87 [facility] Comment on above: Order Comment: Speci men Type: BLOOD SPECIMENOrdering Facility: [facility] Address: [address] [place] [address] Performed By: #### 5 7021-8 ####[facility]ORATORYCLIA [id number] [address] Monocytes/100 WBC (Bld) 5.8 % Normal [facility] Comment on above: Order Comment: Speci men Type: BLOOD SPECIMENOrdering Facility: [facility] Address: [address] [place] [address] Performed By: #### 5 7021-8 ####[facility] LABORATORYCLIA [id number] [place] [address] [place] Neutrophils (Bld) [#/Vol] 5.87 10*3/uL Normal 1.45-7.50 [facility] Comment on above: Order Comment: Speci men Type: BLOOD SPECIMENOrdering Facility: [facility] Address: [address] [place] [address] Performed By: #### 5 7021-8 ####[facility]ORATORYCLIA [id number] [address] [place] Neutrophils/100 WBC (Bld) 72.4 % Normal [facility] Comment on above: Order Comment: Speci men Type: BLOOD SPECIMENOrdering Facility: [facility] Address: [address] [place] [address] Performed By: #### 5 7021-8 ####[facility]ORATORYCLIA [id number] [address] [place] Nucleated RBC (Bld) [#/Vol] 10*3/uL Normal <0.01 [facility] Comment on above: Order Comment: Speci men Type: BLOOD SPECIMENOrdering Facility: [facility] Address: [address] [place] [address] Performed By: #### 5 7021-8 ####[facility]ORATORYCLIA [id number] [address] [place] Nucleated RBC/100 WBC (Bld) [Ratio] 0.0 /100 WBC Normal [facility] Comment on above: Order Comment: Speci men Type: BLOOD SPECIMENOrdering Facility: [facility] Address: [address] [place] [address] Performed By: #### 5 7021-8 ####[facility]ORATORYCLIA [id number] [address] [place] Platelet mean volume (Bld) [Entitic vol] 9.4 fL Normal 9.0-12.7 [facility] Comment on above: Order Comment: Speci men Type: BLOOD SPECIMENOrdering Facility: [facility] Address: [address] [place] [address] Performed By: #### 5 7021-8 ####[facility]ORATORYCLIA [id number] [address] Platelets (Bld) [#/Vol] 290 10*3/uL Normal 150-400 [facility] Comment on above: Order Comment: Speci men Type: BLOOD SPECIMENOrdering Facility: [facility] Address: [address] [place] [address] Performed By: #### 5 7021-8 ####[facility]ORATORYCLIA [id number] [address] OF [facility] RBC (Bld) [#/Vol] 3.24 10*6/uL Low 4.20-6.00 [facility] Comment on above: Order Comment: Speci men Type: BLOOD SPECIMENOrdering Facility: [facility] Address: [address] [place] [address] Performed By: #### 5 7021-8 ####[facility]ORATORYCLIA [id number] [address] OF [facility] WBC (Bld) [#/Vol] 8.10 10*3/uL Normal 3.70-11.00 [facility] Comment on above: Order Comment: Speci men Type: BLOOD SPECIMENOrdering Facility: [facility] Address: [address] [place] [address] Performed By: #### 5 7021-8 ####[facility]ORATORYCLIA [id number] [address] THERAPY NTon 08-15-2021 THERAPY NT Normal [facility] THERAPY NT Normal [facility] THERAPY NT Normal [facility] Basic metabolic 2000 panelon 08-14-2021 Anion gap [Moles/Vol] 10 mmol/L Normal 9-18 [facility] Comment on above: Order Comment: Speci men Type: BLOOD SPECIMENOrdering Facility: [facility] Address: [address] [place] [address] Performed By: #### 2 4321-2 ####[facility]ORATORYCLIA [id number] [place] [address] [place] Calcium [Mass/Vol] 8.8 mg/dL Normal 8.5-10.2 [facility] Comment on above: Order Comment: Speci men Type: BLOOD SPECIMENOrdering Facility: [facility] Address: [address] [place] [address] Performed By: #### 2 4321-2 ####[facility]ORATORYCLIA [id number] [place] [address] [place] Chloride [Moles/Vol] 92 mmol/L Low 97-105 [facility] Comment on above: Order Comment: Speci men Type: BLOOD SPECIMENOrdering Facility: [facility] Address: [address] [place] [address] Performed By: #### 2 4321-2 ####[facility]ORATORYCLIA [id number] [place] [address] [place] CO2 [Moles/Vol] 29 mmol/L Normal 22-30 [facility] Comment on above: Order Comment: Speci men Type: BLOOD SPECIMENOrdering Facility: [facility] Address: [address] [place] [address] Performed By: #### 2 4321-2 ####[facility]ATORYCLIA [id number] [place] [address] [place] Creatinine [Mass/Vol] 0.49 mg/dL Low 0.73-1.22 [facility] Comment on above: Order Comment: Speci men Type: BLOOD SPECIMENOrdering Facility: [facility] Address: [address] [place] [address] Performed By: #### 2 4321-2 ####[facility]ORATORYCLIA [id number] [address] [place] ESTIMATED GLOMERULAR FILTRATION RATE 111 mL/min/1.73m??? Normal >=60 [facility] Comment on above: Order Comment: Speci men Type: BLOOD SPECIMENOrdering Facility: [facility] Address: [address] [id number] Result Comment: Luzmaria mated Glomerular Filtration Rate [...] actual GFR. Performed By: #### 2 4321-2 ####[facility] LABORATORYCLIA [id number] [place] [address] [place] Glucose [Mass/Vol] 104 mg/dL High 74-99 [facility] Comment on above: Order Comment: Shira feldman Type: BLOOD SPECIMENOrdering Facility: [facility] Address: [address] [place], [place] [address] Result Comment: The [place] Diabetes Association (ADA) provides guidance for cutoff [...] Standards of Medical Care in Diabetes 2016, [place] Diabetes [employer]. Diabetes Care. 2016.39(Suppl 1). Performed By: #### 2 4321-2 ####[facility]ORATORYCLIA [id number] [place] [address] [place] Potassium [Moles/Vol] 3.1 mmol/L Low 3.7-5.1 [facility] Comment on above: Order Comment: Shira feldman Type: BLOOD SPECIMENOrdering Facility: [facility] Address: [address] [phone] Performed By: #### 2 4321-2 ####[facility]ATORYCLIA [id number] [address] [place] Sodium [Moles/Vol] 131 mmol/L Low 136-144 [facility] Comment on above: Order Comment: Speci men Type: BLOOD SPECIMENOrdering Facility: [facility] Address: [address] [place] [address] Performed By: #### 2 4321-2 ####[facility]ATORYCLIA [id number] [address] [place] Urea nitrogen [Mass/Vol] 13 mg/dL Normal 9-24 [facility] Comment on above: Order Comment: Speci men Type: BLOOD SPECIMENOrdering Facility: [facility] Address: [address] [place] [address] Performed By: #### 2 4321-2 ####[facility]ATORYCLIA [id number] [address] STATES [facility] CBC W Auto Differential pane l (Bld)on 08-14-2021 Basophils (Bld) [#/Vol] 10*3/uL Normal <0.11 [facility] Comment on above: Order Comment: Speci men Type: BLOOD SPECIMENOrdering Facility: [facility] Address: [address] [place] [address] Performed By: #### 5 7021-8 ####[facility]ORATORYCLIA [id number] [address] STATES [facility] Basophils/100 WBC (Bld) 0.2 % Normal [facility] Comment on above: Order Comment: Speci men Type: BLOOD SPECIMENOrdering Facility: [facility] Address: [address] [place] [address] Performed By: #### 5 7021-8 ####[facility]ATORYCLIA [id number] [address] Differential cell count method Nom (Bld) Auto Normal [facility] Comment on above: Order Comment: Speci men Type: BLOOD SPECIMENOrdering Facility: [facility] Address: [address] [address] Performed By: #### 5 7021-8 ####[facility] LABORATORYCLIA [id number] [address] [place] Eosinophils (Bld) [#/Vol] 0.23 10*3/uL Normal <0.46 [facility] Comment on above: Order Comment: Speci men Type: BLOOD SPECIMENOrdering Facility: [facility] Address: [address] [address] Performed By: #### 5 7021-8 ####REGENCY [facility]ATORYCLIA [id number] [address] Eosinophils/100 WBC (Bld) 2.7 % Normal [facility] Comment on above: Order Comment: Speci men Type: BLOOD SPECIMENOrdering Facility: [facility] Address: [address] [address] Performed By: #### 5 7021-8 ####[facility]ORATORYCLIA [id number] [address] Erythrocyte distribution width (RBC) [Ratio] 16.6 % High 11.5-15.0 [facility] Comment on above: Order Comment: Speci men Type: BLOOD SPECIMENOrdering Facility: [facility] Address: [address] [address] Performed By: #### 5 7021-8 ####[facility]ORATORYCLIA [id number] [address] [place] Hematocrit (Bld) [Volume fraction] 28.6 % Low 39.0-51.0 [facility] Comment on above: Order Comment: Speci men Type: BLOOD SPECIMENOrdering Facility: [facility] Address: [facility] [address] Performed By: #### 5 7021-8 ####[facility]ATORYCLIA [id number] [address] [place] Hemoglobin (Bld) [Mass/Vol] 9.0 g/dL Low 13.0-17.0 [facility] Comment on above: Order Comment: Speci men Type: BLOOD SPECIMENOrdering Facility: [facility] Address: [address] [place] [address] Performed By: #### 5 7021-8 ####[facility]ORATORYCLIA [id number] [address] IMMATURE GRAN % 0.2 % Normal [facility] Comment on above: Order Comment: Speci men Type: BLOOD SPECIMENOrdering Facility: [facility] Address: [address] [place] [address] Performed By: #### 5 7021-8 ####[facility]ORATORYCLIA [id number] [address] IMMATURE GRAN ABS <0.03 Normal <0.10 [facility] Comment on above: Order Comment: Speci men Type: BLOOD SPECIMENOrdering Facility: [facility] Address: [address] [place] [address] Performed By: #### 5 7021-8 ####[facility]ORATORYCLIA [id number] [address] Lymphocytes (Bld) [#/Vol] 1.33 10*3/uL Normal 1.00-4.00 [facility] Comment on above: Order Comment: Speci men Type: BLOOD SPECIMENOrdering Facility: [facility] Address: [address] [place] [address] Performed By: #### 5 7021-8 ####[facility]ATORYCLIA [id number] [address] Lymphocytes/100 WBC (Bld) 15.6 % Normal [facility] Comment on above: Order Comment: Speci men Type: BLOOD SPECIMENOrdering Facility: [facility] Address: [address] [place] [address] Performed By: #### 5 7021-8 ####[facility]ORATORYCLIA [id number] [address] [place] MCH (RBC) [Entitic mass] 29.0 pg Normal 26.0-34.0 [facility] Comment on above: Order Comment: Speci men Type: BLOOD SPECIMENOrdering Facility: [facility] Address: [address] [place] [address] Performed By: #### 5 7021-8 ####[facility]ATORYCLIA [id number] [place] [address] [place] MCHC (RBC) [Mass/Vol] 31.5 g/dL Normal 30.5-36.0 [facility] Comment on above: Order Comment: Speci men Type: BLOOD SPECIMENOrdering Facility: [facility] Address: [address] [place] [address] Performed By: #### 5 7021-8 ####[facility]ATORYCLIA [id number] [address] [place] MCV (RBC) [Entitic vol] 92.3 fL Normal 80.0-100.0 [facility] Comment on above: Order Comment: Speci men Type: BLOOD SPECIMENOrdering Facility: [facility] Address: [address] [place] [address] Performed By: #### 5 7021-8 ####[facility]ORATORYCLIA [id number] [address] STATES OF [facility] Monocytes (Bld) [#/Vol] 0.44 10*3/uL Normal <0.87 [facility] Comment on above: Order Comment: Speci men Type: BLOOD SPECIMENOrdering Facility: [facility] Address: [address] [place] [address] Performed By: #### 5 7021-8 ####[facility]ORATORYCLIA [id number] [address] Monocytes/100 WBC (Bld) 5.2 % Normal [facility] Comment on above: Order Comment: Speci men Type: BLOOD SPECIMENOrdering Facility: [facility] Address: [address] [place] [address] Performed By: #### 5 7021-8 ####[facility]ATORYCLIA [id number] [address] [place] Neutrophils (Bld) [#/Vol] 6.46 10*3/uL Normal 1.45-7.50 [facility] Comment on above: Order Comment: Speci men Type: BLOOD SPECIMENOrdering Facility: [facility] Address: [address] [place] [address] Performed By: #### 5 7021-8 ####[facility]ATORYCLIA [id number] [address] [place] Neutrophils/100 WBC (Bld) 76.1 % Normal [facility] Comment on above: Order Comment: Speci men Type: BLOOD SPECIMENOrdering Facility: [facility] Address: [address] [place] [address] Performed By: #### 5 7021-8 ####[facility]ATORYCLIA [id number] [address] Nucleated RBC (Bld) [#/Vol] 10*3/uL Normal <0.01 [facility] Comment on above: Order Comment: Speci men Type: BLOOD SPECIMENOrdering Facility: [facility] Address: [address] [place] [address] Performed By: #### 5 7021-8 ####[facility]ATORYCLIA [id number] [address] Nucleated RBC/100 WBC (Bld) [Ratio] 0.0 /100 WBC Normal [facility] Comment on above: Order Comment: Speci men Type: BLOOD SPECIMENOrdering Facility: [facility] Address: [address] [place] [address] Performed By: #### 5 7021-8 ####[facility]ATORYCLIA [id number] [address] Platelet mean volume (Bld) [Entitic vol] 9.5 fL Normal 9.0-12.7 [facility] Comment on above: Order Comment: Speci men Type: BLOOD SPECIMENOrdering Facility: [facility] Address: [address] [place] [address] Performed By: #### 5 7021-8 ####[facility]ATORYCLIA [id number] [address] OF [facility] Platelets (Bld) [#/Vol] 247 10*3/uL Normal 150-400 [facility] Comment on above: Order Comment: Speci men Type: BLOOD SPECIMENOrdering Facility: [facility] Address: [address] [place] [address] Performed By: #### 5 7021-8 ####[facility]ATORYCLIA [id number] [address] RBC (Bld) [#/Vol] 3.10 10*6/uL Low 4.20-6.00 [facility] Comment on above: Order Comment: Speci men Type: BLOOD SPECIMENOrdering Facility: [facility] Address: [address] [place] [address] Performed By: #### 5 7021-8 ####[facility]ATORYCLIA [id number] [address] WBC (Bld) [#/Vol] 8.50 10*3/uL Normal 3.70-11.00 [facility] Comment on above: Order Comment: Speci men Type: BLOOD SPECIMENOrdering Facility: [facility] Address: [address] [place] [address] Performed By: #### 5 7021-8 ####[facility]ORATORYCLIA [id number] [address] [place] CONSULTon 08-14-2021 CONSULT Normal [facility] NURSING PROGon 08-14-2021 NURSING PROG Normal [facility] CBC W Auto Differential pane l (Bld)on 08-13-2021 Basophils (Bld) [#/Vol] 10*3/uL Normal <0.11 [facility] Comment on above: Order Comment: Speci men Type: BLOOD SPECIMENOrdering Facility: [facility] Address: [address] [place] [address] Performed By: #### 5 7021-8 ####[facility]ORYCLIA [id number] [address] Basophils/100 WBC (Bld) 0.2 % Normal [facility] Comment on above: Order Comment: Speci men Type: BLOOD SPECIMENOrdering Facility: [facility] Address: [address] [place] [address] Performed By: #### 5 7021-8 ####[facility]ATORYCLIA [id number] [address] Differential cell count method Nom (Bld) Auto Normal [facility] Comment on above: Order Comment: Speci men Type: BLOOD SPECIMENOrdering Facility: [facility] Address: [address] [place] [address] Performed By: #### 5 7021-8 ####[facility]ATORYCLIA [id number] [address] STATES OF [facility] Eosinophils (Bld) [#/Vol] 0.31 10*3/uL Normal <0.46 [facility] Comment on above: Order Comment: Speci men Type: BLOOD SPECIMENOrdering Facility: [facility] Address: [address] [place] [address] Performed By: #### 5 7021-8 ####[facility]ATORYCLIA [id number] [address] Eosinophils/100 WBC (Bld) 3.7 % Normal [facility] Comment on above: Order Comment: Speci men Type: BLOOD SPECIMENOrdering Facility: [facility] Address: [address] [place] [address] Performed By: #### 5 7021-8 ####[facility]ATORYCLIA [id number] [address] [place] Erythrocyte distribution width (RBC) [Ratio] 16.6 % High 11.5-15.0 [facility] Comment on above: Order Comment: Speci men Type: BLOOD SPECIMENOrdering Facility: [facility] Address: [address] [place] [address] Performed By: #### 5 7021-8 ####[facility]ATORYCLIA [id number] [address] Hematocrit (Bld) [Volume fraction] 27.5 % Low 39.0-51.0 [facility] Comment on above: Order Comment: Speci men Type: BLOOD SPECIMENOrdering Facility: [facility] Address: [address] [place] [address] Performed By: #### 5 7021-8 ####[facility]ATORYCLIA [id number] [address] Hemoglobin (Bld) [Mass/Vol] 8.4 g/dL Low 13.0-17.0 [facility] Comment on above: Order Comment: Speci men Type: BLOOD SPECIMENOrdering Facility: [facility] Address: [address] [place] [address] Performed By: #### 5 7021-8 ####[facility]ATORYCLIA [id number] [address] IMMATURE GRAN % 0.5 % Normal [facility] Comment on above: Order Comment: Speci men Type: BLOOD SPECIMENOrdering Facility: [facility] Address: [address] [place] [address] Performed By: #### 5 7021-8 ####[facility]ATORYCLIA [id number] [address] IMMATURE GRAN ABS 0.04 k/uL Normal <0.10 [facility] Comment on above: Order Comment: Speci men Type: BLOOD SPECIMENOrdering Facility: [facility] Address: [address] [place] [address] Performed By: #### 5 7021-8 ####[facility]ATORYCLIA [id number] [address] Lymphocytes (Bld) [#/Vol] 1.55 10*3/uL Normal 1.00-4.00 [facility] Comment on above: Order Comment: Speci men Type: BLOOD SPECIMENOrdering Facility: [facility] Address: [address] [place] [address] Performed By: #### 5 7021-8 ####[facility]ATORYCLIA [id number] [address] Lymphocytes/100 WBC (Bld) 18.7 % Normal [facility] Comment on above: Order Comment: Speci men Type: BLOOD SPECIMENOrdering Facility: [facility] Address: [address] [place] [address] Performed By: #### 5 7021-8 ####[facility]ORATORYCLIA [id number] [address] STATES OF [facility] MCH (RBC) [Entitic mass] 28.9 pg Normal 26.0-34.0 [facility] Comment on above: Order Comment: Speci men Type: BLOOD SPECIMENOrdering Facility: [facility] Address: [address] [place] [address] Performed By: #### 5 7021-8 ####[facility]ATORYCLIA [id number] [address] MCHC (RBC) [Mass/Vol] 30.5 g/dL Normal 30.5-36.0 [facility] Comment on above: Order Comment: Speci men Type: BLOOD SPECIMENOrdering Facility: [facility] Address: [address] [place] [address] Performed By: #### 5 7021-8 ####[facility]ATORYCLIA [id number] [address] MCV (RBC) [Entitic vol] 94.5 fL Normal 80.0-100.0 [facility] Comment on above: Order Comment: Speci men Type: BLOOD SPECIMENOrdering Facility: [facility] Address: [address] [place] [address] Performed By: #### 5 7021-8 ####[facility]ORATORYCLIA [id number] [place] [address] [place] Monocytes (Bld) [#/Vol] 0.47 10*3/uL Normal <0.87 [facility] Comment on above: Order Comment: Speci men Type: BLOOD SPECIMENOrdering Facility: [facility] Address: [address] [place] [address] Performed By: #### 5 7021-8 ####[facility]ATORYCLIA [id number] [address] [place] Monocytes/100 WBC (Bld) 5.7 % Normal [facility] Comment on above: Order Comment: Speci men Type: BLOOD SPECIMENOrdering Facility: [facility] Address: [address] [place] [address] Performed By: #### 5 7021-8 ####[facility]ORATORYCLIA [id number] [place] [address] [place] Neutrophils (Bld) [#/Vol] 5.92 10*3/uL Normal 1.45-7.50 [facility] Comment on above: Order Comment: Speci men Type: BLOOD SPECIMENOrdering Facility: [facility] Address: [address] [place] [address] Performed By: #### 5 7021-8 ####[facility]ATORYCLIA [id number] [address] [place] Neutrophils/100 WBC (Bld) 71.2 % Normal [facility] Comment on above: Order Comment: Speci men Type: BLOOD SPECIMENOrdering Facility: [facility] Address: [address] [place] [address] Performed By: #### 5 7021-8 ####[facility]ATORYCLIA [id number] [place] [address] [place] Nucleated RBC (Bld) [#/Vol] 10*3/uL Normal <0.01 [facility] Comment on above: Order Comment: Speci men Type: BLOOD SPECIMENOrdering Facility: [facility] Address: [facility] [address] Performed By: #### 5 7021-8 ####[facility]ORATORYCLIA [id number] [address] Nucleated RBC/100 WBC (Bld) [Ratio] 0.0 /100 WBC Normal [facility] Comment on above: Order Comment: Speci men Type: BLOOD SPECIMENOrdering Facility: [facility] Address: [address] [place] [address] Performed By: #### 5 7021-8 ####[facility]ATORYCLIA [id number] [address] [place] Platelet mean volume (Bld) [Entitic vol] 9.9 fL Normal 9.0-12.7 [facility] Comment on above: Order Comment: Speci men Type: BLOOD SPECIMENOrdering Facility: [facility] Address: [address] [place] [address] Performed By: #### 5 7021-8 ####[facility]ATORYCLIA [id number] [address] [place] Platelets (Bld) [#/Vol] 203 10*3/uL Normal 150-400 [facility] Comment on above: Order Comment: Speci men Type: BLOOD SPECIMENOrdering Facility: [facility] Address: [address] [place] [address] Performed By: #### 5 7021-8 ####[facility]ATORYCLIA [id number] [address] [place] RBC (Bld) [#/Vol] 2.91 10*6/uL Low 4.20-6.00 [facility] Comment on above: Order Comment: Speci men Type: BLOOD SPECIMENOrdering Facility: [facility] Address: [address] [place] [address] Performed By: #### 5 7021-8 ####[facility]ATORYCLIA [id number] [address] WBC (Bld) [#/Vol] 8.31 10*3/uL Normal 3.70-11.00 [facility] Comment on above: Order Comment: Speci men Type: BLOOD SPECIMENOrdering Facility: [facility] Address: [address] [place] [address] Performed By: #### 5 7021-8 ####[facility]ORATORYCLIA [id number] [address] [place] aPTT PPPon 08-13-2021 aPTT Coag (PPP) [Time] 69.7 s High 23.0-32.4 [facility] Comment on above: Order Comment: Speci men Type: BLOOD SPECIMENOrdering Facility: [facility] Address: [address] [place] [address] Performed By: #### 1 4979-9 ####[facility]ATORYCLIA [id number] [address] STATES [facility] aPTT Coag (PPP) [Time] 70.6 s High 23.0-32.4 [facility] Comment on above: Order Comment: Speci men Type: BLOOD SPECIMENOrdering Facility: [facility] Address: [address] [place] [address] Performed By: #### 1 4979-9 ####[facility]ORATORYCLIA [id number] [address] [place] ALLIED HEALTHon 08-12-2021 ALLIED HEALTH Normal [facility] ALLIED HEALTH Normal [facility] Basic metabolic 2000 panelon 08-12-2021 Anion gap [Moles/Vol] 7 mmol/L Low 9-18 [facility] Comment on above: Order Comment: Speci men Type: BLOOD SPECIMENOrdering Facility: [facility] Address: [address] [place] [address] Performed By: #### 2 4321-2, 99291-5, 2777-1 ####[facility]ORATORYCLIA [id number] [place] [address] [place] Calcium [Mass/Vol] 8.8 mg/dL Normal 8.5-10.2 [facility] Comment on above: Order Comment: Speci men Type: BLOOD SPECIMENOrdering Facility: [facility] Address: [address] [place] [address] Performed By: #### 2 4321-2, , 2776-05 ####[facility]ATORYCLIA [id number] [place] [address] [place] Chloride [Moles/Vol] 96 mmol/L Low 97-105 [facility] Comment on above: Order Comment: Speci men Type: BLOOD SPECIMENOrdering Facility: [facility] Address: [address] [place] [address] Performed By: #### 2 4321-2, , 2776-05 ####[facility]ORATORYCLIA [id number] [address] STATES OF [facility] CO2 [Moles/Vol] 32 mmol/L High 22-30 [facility] Comment on above: Order Comment: Speci men Type: BLOOD SPECIMENOrdering Facility: [facility] Address: [address] [place] [address] Performed By: #### 2 4321-2, , 2776-05 ####[facility]ATORYCLIA [id number] [address] [place] Creatinine [Mass/Vol] 0.52 mg/dL Low 0.73-1.22 [facility] Comment on above: Order Comment: Speci men Type: BLOOD SPECIMENOrdering Facility: [facility] Address: [address] [place], [place] [address] Performed By: #### 2 4321-2, , 2776-05 ####[facility]ATORYCLIA [id number] [address] ESTIMATED GLOMERULAR FILTRATION RATE 109 mL/min/1.73m??? Normal >=60 [facility] Comment on above: Order Comment: Speci men Type: BLOOD SPECIMENOrdering Facility: [facility] Address: [address] [id number] Result Comment: Luzmaria mated Glomerular Filtration Rate [...] Performed By: #### 2 4321-2, , 2776-05 ####[facility]ATORYCLIA [id number] [place] [address] [place] Glucose [Mass/Vol] 119 mg/dL High 74-99 [facility] Comment on above: Order Comment: Speci men Type: BLOOD SPECIMENOrdering Facility: [facility] Address: [address] [place], [place] [address] Result Comment: The [place] Diabetes [employer] (ADA) provides guidance for cutoff [...] Standards of Medical Care in Diabetes 2016, [employer]. Diabetes Care. 2016.39(Suppl 1). Performed By: #### 2 4321-2, , 2776-05 ####[facility]ORATORYCLIA [id number] [place] [id number] [place] Potassium [Moles/Vol] 3.7 mmol/L Normal 3.7-5.1 [facility] Comment on above: Order Comment: Speci men Type: BLOOD SPECIMENOrdering Facility: [facility] Address: [address] [phone] Performed By: #### 2 4321-2, , 2776-05 ####[facility]ORATORYCLIA [id number] [place] [address] [place] Sodium [Moles/Vol] 135 mmol/L Low 136-144 [facility] Comment on above: Order Comment: Speci men Type: BLOOD SPECIMENOrdering Facility: [facility] Address: [address] [place] [address] Performed By: #### 2 4321-2, , 2776-05 ####[facility]ATORYCLIA [id number] [place] [address] [place] Urea nitrogen [Mass/Vol] 20 mg/dL Normal 9-24 [facility] Comment on above: Order Comment: Speci men Type: BLOOD SPECIMENOrdering Facility: [facility] Address: [address] [place] [address] Performed By: #### 2 432-2, , 2776-05 ####[facility]ATORYCLIA [id number] [address] [place] CASE MANAGEMon 08-12-2021 CASE MANAGEM Normal [facility] CBC W Auto Differential pane l (Bld)on 08-12-2021 Basophils (Bld) [#/Vol] 0.04 10*3/uL Normal <0.11 [facility] Comment on above: Order Comment: Speci men Type: BLOOD SPECIMENOrdering Facility: [facility] Address: [address] [place] [address] Performed By: #### 5 7021-8 ####[facility]ATORYCLIA [id number] [address] [place] Basophils/100 WBC (Bld) 0.5 % Normal [facility] Comment on above: Order Comment: Speci men Type: BLOOD SPECIMENOrdering Facility: [facility] Address: [address] [place] [address] Performed By: #### 5 7021-8 ####[facility]ATORYCLIA [id number] [address] Differential cell count method Nom (Bld) Auto Normal [facility] Comment on above: Order Comment: Speci men Type: BLOOD SPECIMENOrdering Facility: [facility] Address: [address] [place] [address] Performed By: #### 5 7021-8 ####[facility]ATORYCLIA [id number] [address] [place] Eosinophils (Bld) [#/Vol] 0.19 10*3/uL Normal <0.46 [facility] Comment on above: Order Comment: Speci men Type: BLOOD SPECIMENOrdering Facility: [facility] Address: [address] [place] [address] Performed By: #### 5 7021-8 ####[facility] LABORATORYCLIA [id number] [address] Eosinophils/100 WBC (Bld) 2.3 % Normal [facility] Comment on above: Order Comment: Speci men Type: BLOOD SPECIMENOrdering Facility: [facility] Address: [address] [place] [address] Performed By: #### 5 7021-8 ####[facility] LABORATORYCLIA [id number] [address] [place] Erythrocyte distribution width (RBC) [Ratio] 17.1 % High 11.5-15.0 [facility] Comment on above: Order Comment: Speci men Type: BLOOD SPECIMENOrdering Facility: [facility] Address: [address] [place] [address] Performed By: #### 5 7021-8 ####[facility] LABORATORYCLIA [id number] [address] Hematocrit (Bld) [Volume fraction] 25.3 % Low 39.0-51.0 [facility] Comment on above: Order Comment: Speci men Type: BLOOD SPECIMENOrdering Facility: [facility] Address: [address] [place] [address] Performed By: #### 5 7021-8 ####[facility] LABORATORYCLIA [id number] [address] STATES OF [facility] Hemoglobin (Bld) [Mass/Vol] 7.9 g/dL Low 13.0-17.0 [facility] Comment on above: Order Comment: Speci men Type: BLOOD SPECIMENOrdering Facility: [facility] [facility]OSP[facility] Address: [address] [place] [address] Performed By: #### 5 7021-8 ####[facility] LABORATORYCLIA [id number] [address] IMMATURE GRAN % 0.5 % Normal [facility] Comment on above: Order Comment: Speci men Type: BLOOD SPECIMENOrdering Facility: [facility] Address: [address] [place] [address] Performed By: #### 5 7021-8 ####[facility] LABORATORYCLIA [id number] [address] IMMATURE GRAN ABS 0.04 k/uL Normal <0.10 [facility] Comment on above: Order Comment: Speci men Type: BLOOD SPECIMENOrdering Facility: [facility] Address: [address] [place] [address] Performed By: #### 5 7021-8 ####[facility] LABORATORYCLIA [id number] [address] [place] Lymphocytes (Bld) [#/Vol] 1.69 10*3/uL Normal 1.00-4.00 [facility] Comment on above: Order Comment: Speci men Type: BLOOD SPECIMENOrdering Facility: [facility] Address: [address] [place] [address] Performed By: #### 5 7021-8 ####[facility] LABORATORYCLIA [id number] [address] Lymphocytes/100 WBC (Bld) 20.1 % Normal [facility] Comment on above: Order Comment: Speci men Type: BLOOD SPECIMENOrdering Facility: [facility] Address: [address] [place] [address] Performed By: #### 5 7021-8 ####[facility] LABORATORYCLIA [id number] [address] MCH (RBC) [Entitic mass] 28.5 pg Normal 26.0-34.0 [facility] Comment on above: Order Comment: Speci men Type: BLOOD SPECIMENOrdering Facility: [facility] Address: [address] [place] [address] Performed By: #### 5 7021-8 ####[facility]ORATORYCLIA [id number] [address] STATES [facility] MCHC (RBC) [Mass/Vol] 31.2 g/dL Normal 30.5-36.0 [facility] Comment on above: Order Comment: Speci men Type: BLOOD SPECIMENOrdering Facility: [facility] Address: [address] [place] [address] Performed By: #### 5 7021-8 ####[facility] LABORATORYCLIA [id number] [address] STATES OF [facility] MCV (RBC) [Entitic vol] 91.3 fL Normal 80.0-100.0 [facility] Comment on above: Order Comment: Speci men Type: BLOOD SPECIMENOrdering Facility: [facility] Address: [address] [place] [address] Performed By: #### 5 7021-8 ####[facility]ORATORYCLIA [id number] [address] Monocytes (Bld) [#/Vol] 0.53 10*3/uL Normal <0.87 [facility] Comment on above: Order Comment: Speci men Type: BLOOD SPECIMENOrdering Facility: [facility] Address: [address] [place] [address] Performed By: #### 5 7021-8 ####[facility]ORATORYCLIA [id number] [address] Monocytes/100 WBC (Bld) 6.3 % Normal [facility] Comment on above: Order Comment: Speci men Type: BLOOD SPECIMENOrdering Facility: [facility] Address: [facility] [place] [address] Performed By: #### 5 7021-8 ####[facility]ORATORYCLIA [id number] [address] [place] Neutrophils (Bld) [#/Vol] 5.90 10*3/uL Normal 1.45-7.50 [facility] Comment on above: Order Comment: Speci men Type: BLOOD SPECIMENOrdering Facility: [facility] Address: [address] [place] [address] Performed By: #### 5 7021-8 ####[facility]ORATORYCLIA [id number] [address] [place] Neutrophils/100 WBC (Bld) 70.3 % Normal [facility] Comment on above: Order Comment: Speci men Type: BLOOD SPECIMENOrdering Facility: [facility] Address: [address] [place] [address] Performed By: #### 5 7021-8 ####[facility]ORATORYCLIA [id number] [address] [place] Nucleated RBC (Bld) [#/Vol] 10*3/uL Normal <0.01 [facility] Comment on above: Order Comment: Speci men Type: BLOOD SPECIMENOrdering Facility: [facility] Address: [address] [place] [address] Performed By: #### 5 7021-8 ####[facility]ORATORYCLIA [id number] [address] [place] Nucleated RBC/100 WBC (Bld) [Ratio] 0.0 /100 WBC Normal [facility] Comment on above: Order Comment: Speci men Type: BLOOD SPECIMENOrdering Facility: [facility] Address: [address] [place] [address] Performed By: #### 5 7021-8 ####[facility]ORATORYCLIA [id number] [address] [place] Platelet mean volume (Bld) [Entitic vol] 9.8 fL Normal 9.0-12.7 [facility] Comment on above: Order Comment: Speci men Type: BLOOD SPECIMENOrdering Facility: [facility] Address: [address] [place] [address] Performed By: #### 5 7021-8 ####[facility]ORATORYCLIA [id number] [address] [place] Platelets (Bld) [#/Vol] 164 10*3/uL Normal 150-400 [facility] Comment on above: Order Comment: Speci men Type: BLOOD SPECIMENOrdering Facility: [facility] Address: [address] [place] [address] Performed By: #### 5 7021-8 ####[facility] LABORATORYCLIA [id number] [place] [address] [place] RBC (Bld) [#/Vol] 2.77 10*6/uL Low 4.20-6.00 [facility] Comment on above: Order Comment: Speci men Type: BLOOD SPECIMENOrdering Facility: [facility] Address: [address] [place] [address] Performed By: #### 5 7021-8 ####[facility]ORATORYCLIA [id number] [address] [place] WBC (Bld) [#/Vol] 8.39 10*3/uL Normal 3.70-11.00 [facility] Comment on above: Order Comment: Speci men Type: BLOOD SPECIMENOrdering Facility: [facility] Address: [address] [place] [address] Performed By: #### 5 7021-8 ####[facility] LABORATORYCLIA [id number] [address] [place] BRAIN WO IVCONon 08-13-[address] BRAIN WO IVCON Normal [facility] CT BRAIN WO IVCON Normal [facility] Magnesium SerPl-mCncon 08-12 Magnesium [Mass/Vol] 2.0 mg/dL Normal 1.7-2.3 [facility] Comment on above: Order Comment: Speci men Type: BLOOD SPECIMENOrdering Facility: [facility] Address: [address] [place] [address] Performed By: #### 2 4321-2, 42619-0, 2777-1 ####[facility]ORATORYCLIA [id number] [address] OF [facility] Phosphate SerPl-mCncon 08-12 Phosphate [Mass/Vol] 2.9 mg/dL Normal 2.7-4.8 [facility] Comment on above: Order Comment: Speci men Type: BLOOD SPECIMENOrdering Facility: [facility] Address: [address] [place] [address] Performed By: #### 2 4321-2, 28345-5, 2777- ####[facility]ORATORYCLIA [id number] [address] [place] THERAPY NTon 08-12-2021 THERAPY NT Normal [facility] THERAPY NT Normal [facility] aPTT PPPon 08-12-2021 aPTT Coag (PPP) [Time] 94.2 s High 23.0-32.4 [facility] Comment on above: Order Comment: Speci men Type: BLOOD SPECIMENOrdering Facility: [facility] Address: [address] [place] [address] Performed By: #### 1 4979-9 ####[facility]ORATORYCLIA [id number] [address] aPTT Coag (PPP) [Time] 84.4 s High 23.0-32.4 [facility] Comment on above: Order Comment: Speci men Type: BLOOD SPECIMENOrdering Facility: [facility] Address: [address] [place] [address] Performed By: #### 1 4979-9 ####[facility] LABORATORYCLIA [id number] [place] [address] [place] aPTT Coag (PPP) [Time] 71.3 s High 23.0-32.4 [facility] Comment on above: Order Comment: Speci men Type: BLOOD SPECIMENOrdering Facility: [facility] Address: [address] [place] [address] Performed By: #### 1 4979-9 ####[facility]ORATORYCLIA [id number] [place] [address] [place] ALLIED HEALTHon 08-11-2021 ALLIED HEALTH Normal [facility] CBC W Auto Differential pane l (Bld)on 08-11-2021 Basophils (Bld) [#/Vol] 10*3/uL Normal <0.11 [facility] Comment on above: Order Comment: Speci men Type: BLOOD SPECIMENOrdering Facility: [facility] Address: [address] [place] [address] Performed By: #### 5 7021-8 ####[facility] LABORATORYCLIA [id number] [place] [address] [place] Basophils/100 WBC (Bld) 0.2 % Normal [facility] Comment on above: Order Comment: Speci men Type: BLOOD SPECIMENOrdering Facility: [facility] Address: [address] [place] [address] Performed By: #### 5 7021-8 ####[facility]ORATORYCLIA [id number] [address] [place] Differential cell count method Nom (Bld) Auto Normal [facility] Comment on above: Order Comment: Speci men Type: BLOOD SPECIMENOrdering Facility: [facility] Address: [address] [place] [address] Performed By: #### 5 7021-8 ####[facility]ORATORYCLIA [id number] [place] [address] [place] Eosinophils (Bld) [#/Vol] 0.16 10*3/uL Normal <0.46 [facility] Comment on above: Order Comment: Speci men Type: BLOOD SPECIMENOrdering Facility: [facility] Address: [address] [place] [address] Performed By: #### 5 7021-8 ####[facility]ORATORYCLIA [id number] [address] Eosinophils/100 WBC (Bld) 1.8 % Normal [facility] Comment on above: Order Comment: Speci men Type: BLOOD SPECIMENOrdering Facility: [facility] Address: [address] [place] [address] Performed By: #### 5 7021-8 ####[facility]ORATORYCLIA [id number] [address] Erythrocyte distribution width (RBC) [Ratio] 17.3 % High 11.5-15.0 [facility] Comment on above: Order Comment: Speci men Type: BLOOD SPECIMENOrdering Facility: [facility] Address: [address] [place] [address] Performed By: #### 5 7021-8 ####[facility] LABORATORYCLIA [id number] [address] Hematocrit (Bld) [Volume fraction] 26.6 % Low 39.0-51.0 [facility] Comment on above: Order Comment: Speci men Type: BLOOD SPECIMENOrdering Facility: [facility] Address: [address] [place] [address] Performed By: #### 5 7021-8 ####[facility]ORATORYCLIA [id number] [address] [place] Hemoglobin (Bld) [Mass/Vol] 8.2 g/dL Low 13.0-17.0 [facility] Comment on above: Order Comment: Speci men Type: BLOOD SPECIMENOrdering Facility: [facility] Address: [address] [place] [address] Performed By: #### 5 7021-8 ####[facility]ORATORYCLIA [id number] [address] IMMATURE GRAN % 0.6 % Normal [facility] Comment on above: Order Comment: Speci men Type: BLOOD SPECIMENOrdering Facility: [facility] Address: [address] [place] [address] Performed By: #### 5 7021-8 ####[facility]ORATORYCLIA [id number] [address] IMMATURE GRAN ABS 0.05 k/uL Normal <0.10 [facility] Comment on above: Order Comment: Speci men Type: BLOOD SPECIMENOrdering Facility: [facility] Address: [address] [place] [address] Performed By: #### 5 7021-8 ####[facility]ORATORYCLIA [id number] [address] Lymphocytes (Bld) [#/Vol] 1.40 10*3/uL Normal 1.00-4.00 [facility] Comment on above: Order Comment: Speci men Type: BLOOD SPECIMENOrdering Facility: [facility] Address: [address] [place] [address] Performed By: #### 5 7021-8 ####[facility]ORATORYCLIA [id number] [address] Lymphocytes/100 WBC (Bld) 15.8 % Normal [facility] Comment on above: Order Comment: Speci men Type: BLOOD SPECIMENOrdering Facility: [facility] Address: [address] [place] [address] Performed By: #### 5 7021-8 ####[facility]ORATORYCLIA [id number] [address] [place] MCH (RBC) [Entitic mass] 28.4 pg Normal 26.0-34.0 [facility] Comment on above: Order Comment: Speci men Type: BLOOD SPECIMENOrdering Facility: [facility] Address: [address] [place] [address] Performed By: #### 5 7021-8 ####[facility]ORATORYCLIA [id number] [address] STATES OF [facility] MCHC (RBC) [Mass/Vol] 30.8 g/dL Normal 30.5-36.0 [facility] Comment on above: Order Comment: Speci men Type: BLOOD SPECIMENOrdering Facility: [facility] Address: [address] [place] [address] Performed By: #### 5 7021-8 ####[facility]ORATORYCLIA [id number] [address] MCV (RBC) [Entitic vol] 92.0 fL Normal 80.0-100.0 [facility] Comment on above: Order Comment: Speci men Type: BLOOD SPECIMENOrdering Facility: [facility] Address: [address] [place] [address] Performed By: #### 5 7021-8 ####[facility]ORATORYCLIA [id number] [address] [place] Monocytes (Bld) [#/Vol] 0.61 10*3/uL Normal <0.87 [facility] Comment on above: Order Comment: Speci men Type: BLOOD SPECIMENOrdering Facility: [facility] Address: [address] [place] [address] Performed By: #### 5 7021-8 ####[facility]ORATORYCLIA [id number] [address] Monocytes/100 WBC (Bld) 6.9 % Normal [facility] Comment on above: Order Comment: Speci men Type: BLOOD SPECIMENOrdering Facility: [facility] Address: [address] [place] [address] Performed By: #### 5 7021-8 ####[facility]ORATORYCLIA [id number] [address] [place] Neutrophils (Bld) [#/Vol] 6.62 10*3/uL Normal 1.45-7.50 [facility] Comment on above: Order Comment: Speci men Type: BLOOD SPECIMENOrdering Facility: [facility] Address: [address] [place] [address] Performed By: #### 5 7021-8 ####[facility]ORATORYCLIA [id number] [address] Neutrophils/100 WBC (Bld) 74.7 % Normal [facility] Comment on above: Order Comment: Speci men Type: BLOOD SPECIMENOrdering Facility: [facility] Address: [address] [place] [address] Performed By: #### 5 7021-8 ####[facility]ORATORYCLIA [id number] [address] [place] Nucleated RBC (Bld) [#/Vol] 10*3/uL Normal <0.01 [facility] Comment on above: Order Comment: Speci men Type: BLOOD SPECIMENOrdering Facility: [facility] Address: [address] [place] [address] Performed By: #### 5 7021-8 ####[facility]ORATORYCLIA [id number] [address] [place] Nucleated RBC/100 WBC (Bld) [Ratio] 0.0 /100 WBC Normal [facility] Comment on above: Order Comment: Speci men Type: BLOOD SPECIMENOrdering Facility: [facility] Address: [address] [place] [address] Performed By: #### 5 7021-8 ####[facility]ATORYCLIA [id number] [address] [place] Platelet mean volume (Bld) [Entitic vol] 9.8 fL Normal 9.0-12.7 [facility] Comment on above: Order Comment: Speci men Type: BLOOD SPECIMENOrdering Facility: [facility] Address: [address] [place] [address] Performed By: #### 5 7021-8 ####[facility]ORATORYCLIA [id number] [place] [address] [place] Platelets (Bld) [#/Vol] 157 10*3/uL Normal 150-400 [facility] Comment on above: Order Comment: Speci men Type: BLOOD SPECIMENOrdering Facility: [facility] Address: [address] [place] [address] Performed By: #### 5 7021-8 ####[facility]ORATORYCLIA [id number] [address] OF [facility] RBC (Bld) [#/Vol] 2.89 10*6/uL Low 4.20-6.00 [facility] Comment on above: Order Comment: Speci men Type: BLOOD SPECIMENOrdering Facility: [facility] Address: [address] [place] [address] Performed By: #### 5 7021-8 ####[facility]ATORYCLIA [id number] [address] OF [facility] WBC (Bld) [#/Vol] 8.86 10*3/uL Normal 3.70-11.00 [facility] Comment on above: Order Comment: Speci men Type: BLOOD SPECIMENOrdering Facility: [facility] Address: [address] [place] [address] Performed By: #### 5 7021-8 ####[facility]ATORYCLIA [id number] [address] CBC panel Auto (Bld)on 08-11 Erythrocyte distribution width (RBC) [Ratio] 17.2 % High 11.5-15.0 [facility] Comment on above: Order Comment: Speci men Type: BLOOD SPECIMENOrdering Facility: [facility] Address: [address] [place] [address] Performed By: #### 5 8410-2 ####[facility]ORYCLIA [id number] [address] Hematocrit (Bld) [Volume fraction] 27.0 % Low 39.0-51.0 [facility] Comment on above: Order Comment: Speci men Type: BLOOD SPECIMENOrdering Facility: [facility] Address: [address] [place] [address] Performed By: #### 5 8410-2 ####[facility]ORYCLIA [id number] [address] Hemoglobin (Bld) [Mass/Vol] 8.3 g/dL Low 13.0-17.0 [facility] Comment on above: Order Comment: Speci men Type: BLOOD SPECIMENOrdering Facility: [facility] Address: [address] [place] [address] Performed By: #### 5 8410-2 ####[facility]ORYCLIA [id number] [address] MCH (RBC) [Entitic mass] 28.7 pg Normal 26.0-34.0 [facility] Comment on above: Order Comment: Speci men Type: BLOOD SPECIMENOrdering Facility: [facility] Address: [address] [place] [address] Performed By: #### 5 8410-2 ####[facility]ORYCLIA [id number] [address] MCHC (RBC) [Mass/Vol] 30.7 g/dL Normal 30.5-36.0 [facility] Comment on above: Order Comment: Speci men Type: BLOOD SPECIMENOrdering Facility: [facility] Address: [address] [place] [address] Performed By: #### 5 8410-2 ####[facility]ORYCLIA [id number] [address] MCV (RBC) [Entitic vol] 93.4 fL Normal 80.0-100.0 [facility] Comment on above: Order Comment: Speci men Type: BLOOD SPECIMENOrdering Facility: [facility] Address: [address] [place] [address] Performed By: #### 5 8410-2 ####[facility]ORYCLIA [id number] [address] Nucleated RBC (Bld) [#/Vol] 10*3/uL Normal <0.01 [facility] Comment on above: Order Comment: Speci men Type: BLOOD SPECIMENOrdering Facility: [facility] Address: [address] [place], [place] [address] Performed By: #### 5 8410-2 ####[facility]ATORYCLIA [id number] [address] [place] Platelet mean volume (Bld) [Entitic vol] 9.8 fL Normal 9.0-12.7 [facility] Comment on above: Order Comment: Speci men Type: BLOOD SPECIMENOrdering Facility: [facility] Address: [address] [place] [address] Performed By: #### 5 8410-2 ####[facility]ATORYCLIA [id number] [address] [place] Platelets (Bld) [#/Vol] 169 10*3/uL Normal 150-400 [facility] Comment on above: Order Comment: Speci men Type: BLOOD SPECIMENOrdering Facility: [facility] Address: [address] [place] [address] Performed By: #### 5 8410-2 ####[facility]ATORYCLIA [id number] [place] [address] [place] RBC (Bld) [#/Vol] 2.89 10*6/uL Low 4.20-6.00 [facility] Comment on above: Order Comment: Speci men Type: BLOOD SPECIMENOrdering Facility: [facility] Address: [address] [place], [place] [address] Performed By: #### 5 8410-2 ####[facility]ATORYCLIA [id number] [address] [place] WBC (Bld) [#/Vol] 9.03 10*3/uL Normal 3.70-11.00 [facility] Comment on above: Order Comment: Speci men Type: BLOOD SPECIMENOrdering Facility: [facility] Address: [address] [place], [place] [address] Performed By: #### 5 8410-2 ####[facility]ORATORYCLIA [id number] [address] OF [facility] CT BRAIN WO IVCONon 08-12-19 CT BRAIN WO IVCON Normal [facility] PT panel Coag (PPP)on 2021 INR Coag (PPP) [Relative time] 1.0 {INR} Normal 0.9-1.3 [facility] Comment on above: Order Comment: Speci men Type: BLOOD SPECIMENOrdering Facility: [facility] Address: [address] [place], [place] [address] Result Comment: Yris min K Antagonist (VKA) Therapeutic Range: INR 2 to 3 (Target INR of 2.5)Note: For patients treated with VKA drugs, such as warfarin, the [employer] 2012 Guideline recommends [...] al. Chest 2012, 141:7S-47SNishimpatricia RA, et al. [facility] 2017, 70: 252-289 Performed By: #### 1 4979-9, 53642-0 ####[facility]ATORYCLIA [id number] [address] OF [facility] PT Coag (PPP) [Time] 11.4 s Normal 9.7-13.0 [facility] Comment on above: Order Comment: Speccara feldman Type: BLOOD SPECIMENOrdering Facility: [facility] Address: [address] [place] [address] Performed By: #### 1 4979-9, 37793-5 ####[facility] [place] LABORATORYCLIA [id number] [address] [place] THERAPY NTon 08-11-2021 THERAPY NT Normal [facility] US DVT LOWER BILon 2 US DVT LOWER RAINER Normal [facility] US DVT UPPER BILon 2 US DVT UPPER RAINER Normal [facility] aPTT PPPon 08-11-2021 aPTT Coag (PPP) [Time] 26.9 s Normal 23.0-32.4 [facility] Comment on above: Order Comment: Speci men Type: BLOOD SPECIMENOrdering Facility: [facility] Address: [address] [place] [address] Performed By: #### 1 4979-9, 23086-4 ####[facility] [place] LABORATORYCLIA [id number] [place] [address] [place] Basic metabolic 2000 panelon 08-10-2021 Anion gap [Moles/Vol] 11 mmol/L Normal 9-18 [facility] Comment on above: Order Comment: Speci men Type: BLOOD SPECIMENOrdering Facility: [facility] Address: [address] [place] [address] Performed By: #### 2 4321-2 ####[facility] [place] LABORATORYCLIA [id number] [place] [address] [place] Calcium [Mass/Vol] 8.7 mg/dL Normal 8.5-10.2 [facility] Comment on above: Order Comment: Speci men Type: BLOOD SPECIMENOrdering Facility: [facility] Address: [address] [address] Performed By: #### 2 4321-2 ####[facility] [place] LABORATORYCLIA [id number] [place] [address] [place] Chloride [Moles/Vol] 98 mmol/L Normal 97-105 [facility] Comment on above: Order Comment: Speci men Type: BLOOD SPECIMENOrdering Facility: [facility] Address: [address] [address] Performed By: #### 2 4321-2 ####[facility] LABORATORYCLIA [id number] [address] STATES OF [facility] CO2 [Moles/Vol] 28 mmol/L Normal 22-30 [facility] Comment on above: Order Comment: Speci men Type: BLOOD SPECIMENOrdering Facility: [facility] Address: [address] [place] [address] Performed By: #### 2 4321-2 ####[facility] LABORATORYCLIA [id number] [address] STATES OF [facility] Creatinine [Mass/Vol] 0.59 mg/dL Low 0.73-1.22 [facility] Comment on above: Order Comment: Speci men Type: BLOOD SPECIMENOrdering Facility: [facility] Address: [address] [place] [address] Performed By: #### 2 4321-2 ####[facility]ITAL[facility] [id number] [address] ESTIMATED GLOMERULAR FILTRATION RATE 105 mL/min/1.73m??? Normal >=60 [facility] Comment on above: Order Comment: Speci men Type: BLOOD SPECIMENOrdering Facility: [facility] Address: [address] [place] [address] Result Comment: Luzmaria mated Glomerular Filtration Rate [...] actual GFR. Performed By: #### 2 4321-2 ####[facility] LABORATORYCLIA [id number] [address] OF [facility] Glucose [Mass/Vol] 118 mg/dL High 74-99 [facility] Comment on above: Order Comment: Speci men Type: BLOOD SPECIMENOrdering Facility: [facility] Address: [address] [place] [address] Result Comment: The [employer] Diabetes Association (ADA) provides guidance for cutoff [...] Standards of Medical Care in Diabetes 2016, [employer] Diabetes Association. Diabetes Care. 2016.39(Suppl 1). Performed By: #### 2 4321-2 ####[facility] LABORATORYCLIA [id number] [place] [address] [place] Potassium [Moles/Vol] 3.7 mmol/L Normal 3.7-5.1 [facility] Comment on above: Order Comment: Shira feldman Type: BLOOD SPECIMENOrdering Facility: [facility] Address: [address] [place] [address] Performed By: #### 2 4321-2 ####[facility] LABORATORYCLIA [id number] [place] [address] [place] Sodium [Moles/Vol] 137 mmol/L Normal 136-144 [facility] Comment on above: Order Comment: Shira feldman Type: BLOOD SPECIMENOrdering Facility: [facility] Address: [address] [place] [address] Performed By: #### 2 4321-2 ####[facility] LABORATORYCLIA [id number] [address] [place] Urea nitrogen [Mass/Vol] 23 mg/dL Normal 9-24 [facility] Comment on above: Order Comment: Shira feldman Type: BLOOD SPECIMENOrdering Facility: [facility] Address: [address] [address] Performed By: #### 2 4321-2 ####[facility] LABORATORYCLIA [id number] [address] [place] Anion gap [Moles/Vol] 17 mmol/L Normal 9-18 [facility] Comment on above: Order Comment: Speci men Type: BLOOD SPECIMENOrdering Facility: [facility] Address: [address] [place] [address] Performed By: #### 1 9123-9, 2776-05, 84019-6 ####[facility] LABORATORYCLIA [id number] [place] [address] [place] Calcium [Mass/Vol] 7.7 mg/dL Low 8.5-10.2 [facility] Comment on above: Order Comment: Speci men Type: BLOOD SPECIMENOrdering Facility: [facility] Address: [address] [place] [address] Performed By: #### 1 9123-9, 2776-05, 45317-1 ####[facility] LABORATORYCLIA [id number] [place] [address] [place] Chloride [Moles/Vol] 86 mmol/L Low 97-105 [facility] Comment on above: Order Comment: Speci men Type: BLOOD SPECIMENOrdering Facility: [facility] Address: [address] [place] [address] Performed By: #### 1 9123-9, 2776-05, ####[facility] LABORATORYCLIA [id number] [place] [address] [place] CO2 [Moles/Vol] 24 mmol/L Normal 22-30 [facility] Comment on above: Order Comment: Speci men Type: BLOOD SPECIMENOrdering Facility: [facility] Address: [address] [place] [address] Performed By: #### 1 9123-9, 27711-04, 25284-6 ####[facility] LABORATORYCLIA [id number] [place] [address] [place] Creatinine [Mass/Vol] 0.53 mg/dL Low 0.73-1.22 [facility] Comment on above: Order Comment: Speci men Type: BLOOD SPECIMENOrdering Facility: [facility] Address: [address] [place] [address] Performed By: #### 1 9123-9, 2777-1, 00732-5 ####[facility] LABORATORYCLIA [id number] [address] OF [facility] ESTIMATED GLOMERULAR FILTRATION RATE 108 mL/min/1.73m??? Normal >=60 [facility] Comment on above: Order Comment: Shira feldman Type: BLOOD SPECIMENOrdering Facility: [facility] Address: [address] [place] [address] Result Comment: Luzmaria mated Glomerular Filtration Rate [...] GFR. Performed By: #### 1 9123-9, 2777-1, 97722-2 ####[facility] LABORATORYIA [id number] [place] [address] [place] Glucose [Mass/Vol] 455 mg/dL High 74-99 [facility] Comment on above: Order Comment: Shira feldman Type: BLOOD SPECIMENOrdering Facility: [facility] Address: [address] [place] [address] Result Comment: The [place] Diabetes Association (ADA) provides guidance for cutoff [...] Standards of Medical Care in Diabetes 2016, [employer] Diabetes [employer]. Diabetes Care. 2016.39(Suppl 1). Performed By: #### 1 9123-9, 2777-, 06578-2 ####[facility] LABORATORYCLIA [id number] [place] [address] [place] Potassium [Moles/Vol] 3.4 mmol/L Low 3.7-5.1 [facility] Comment on above: Order Comment: Speci men Type: BLOOD SPECIMENOrdering Facility: [facility] Address: [address] [place] [address] Performed By: #### 1 9123-9, 2777, 90122-3 ####[facility] LABORATORYCLIA [id number] [address] [place] Sodium [Moles/Vol] 127 mmol/L Low 136-144 [facility] Comment on above: Order Comment: Speci men Type: BLOOD SPECIMENOrdering Facility: [facility] Address: [address] [place] [address] Performed By: #### 1 9123-9, 2777, 38841-8 ####[facility] LABORATORYCLIA [id number] [address] STATES [facility] Urea nitrogen [Mass/Vol] 21 mg/dL Normal 9-24 [facility] Comment on above: Order Comment: Speci men Type: BLOOD SPECIMENOrdering Facility: [facility] Address: [address] [place] [address] Performed By: #### 1 9123-9, 2777, 85165-8 ####[facility] LABORATORYCLIA [id number] [address] OF [facility] CASE MANAGEMon 08-10-2021 CASE MANAGEM Normal [facility] CBC W Auto Differential pane l (Bld)on 08-10-2021 Basophils (Bld) [#/Vol] 0.04 10*3/uL Normal <0.11 [facility] Comment on above: Order Comment: Speci men Type: BLOOD SPECIMENOrdering Facility: [facility] Address: [address] [place] [address] Performed By: #### 5 7021-8 ####[facility]ORATORYCLIA [id number] [address] [place] Basophils/100 WBC (Bld) 0.4 % Normal [facility] Comment on above: Order Comment: Speci men Type: BLOOD SPECIMENOrdering Facility: [facility] Address: [address] [place] [address] Performed By: #### 5 7021-8 ####[facility] LABORATORYCLIA [id number] [address] OF [place] Differential cell count method Nom (Bld) Auto Normal [facility] Comment on above: Order Comment: Speci men Type: BLOOD SPECIMENOrdering Facility: [facility] Address: [address] [place] [address] Performed By: #### 5 7021-8 ####[facility] LABORATORYCLIA [id number] [address] [place] Eosinophils (Bld) [#/Vol] 0.11 10*3/uL Normal <0.46 [facility] Comment on above: Order Comment: Speci men Type: BLOOD SPECIMENOrdering Facility: [facility] Address: [address] [place] [address] Performed By: #### 5 7021-8 ####[facility] LABORATORYCLIA [id number] [address] OF [place] Eosinophils/100 WBC (Bld) 1.1 % Normal [facility] Comment on above: Order Comment: Speci men Type: BLOOD SPECIMENOrdering Facility: [facility] Address: [address] [place] [address] Performed By: #### 5 7021-8 ####[facility] LABORATORYCLIA [id number] [address] [place] Erythrocyte distribution width (RBC) [Ratio] 17.2 % High 11.5-15.0 [facility] Comment on above: Order Comment: Speci men Type: BLOOD SPECIMENOrdering Facility: [facility] Address: [address] [place] [address] Performed By: #### 5 7021-8 ####[facility] LABORATORYCLIA [id number] [address] Hematocrit (Bld) [Volume fraction] 25.5 % Low 39.0-51.0 [facility] Comment on above: Order Comment: Speci men Type: BLOOD SPECIMENOrdering Facility: [facility] Address: [address] [place] [address] Performed By: #### 5 7021-8 ####[facility]ORATORYCLIA [id number] [address] Hemoglobin (Bld) [Mass/Vol] 7.9 g/dL Low 13.0-17.0 [facility] Comment on above: Order Comment: Speci men Type: BLOOD SPECIMENOrdering Facility: [facility] Address: [address] [place] [address] Performed By: #### 5 7021-8 ####[facility] LABORATORYCLIA [id number] [address] IMMATURE GRAN % 0.4 % Normal [facility] Comment on above: Order Comment: Speci men Type: BLOOD SPECIMENOrdering Facility: [facility] Address: [address] [place] [address] Performed By: #### 5 7021-8 ####[facility] LABORATORYCLIA [id number] [address] IMMATURE GRAN ABS 0.04 k/uL Normal <0.10 [facility] Comment on above: Order Comment: Speci men Type: BLOOD SPECIMENOrdering Facility: [facility] Address: [address] [place] [address] Performed By: #### 5 7021-8 ####[facility]ORATORYCLIA [id number] [address] Lymphocytes (Bld) [#/Vol] 1.66 10*3/uL Normal 1.00-4.00 [facility] Comment on above: Order Comment: Speci men Type: BLOOD SPECIMENOrdering Facility: [facility] Address: [address] [place] [address] Performed By: #### 5 7021-8 ####[facility] LABORATORYCLIA [id number] [address] Lymphocytes/100 WBC (Bld) 16.2 % Normal [facility] Comment on above: Order Comment: Speci men Type: BLOOD SPECIMENOrdering Facility: [facility] Address: [address] [place] [address] Performed By: #### 5 7021-8 ####[facility]ORATORYCLIA [id number] [address] MCH (RBC) [Entitic mass] 28.5 pg Normal 26.0-34.0 [facility] Comment on above: Order Comment: Speci men Type: BLOOD SPECIMENOrdering Facility: [facility] Address: [address] [place] [address] Performed By: #### 5 7021-8 ####[facility] LABORATORYCLIA [id number] [address] STATES [facility] MCHC (RBC) [Mass/Vol] 31.0 g/dL Normal 30.5-36.0 [facility] Comment on above: Order Comment: Speci men Type: BLOOD SPECIMENOrdering Facility: [facility] Address: [address] [place] [address] Performed By: #### 5 7021-8 ####[facility]ORATORYCLIA [id number] [address] MCV (RBC) [Entitic vol] 92.1 fL Normal 80.0-100.0 [facility] Comment on above: Order Comment: Speci men Type: BLOOD SPECIMENOrdering Facility: [facility] Address: [address] [place] [address] Performed By: #### 5 7021-8 ####[facility]ORATORYCLIA [id number] [address] Monocytes (Bld) [#/Vol] 0.51 10*3/uL Normal <0.87 [facility] Comment on above: Order Comment: Speci men Type: BLOOD SPECIMENOrdering Facility: [facility] Address: [address] [place] [address] Performed By: #### 5 7021-8 ####[facility] LABORATORYCLIA [id number] [address] [place] Monocytes/100 WBC (Bld) 5.0 % Normal [facility] Comment on above: Order Comment: Speci men Type: BLOOD SPECIMENOrdering Facility: [facility] Address: [address] [place] [address] Performed By: #### 5 7021-8 ####[facility] LABORATORYCLIA [id number] [address] [place] Neutrophils (Bld) [#/Vol] 7.91 10*3/uL High 1.45-7.50 [facility] Comment on above: Order Comment: Speci men Type: BLOOD SPECIMENOrdering Facility: [facility] Address: [address] [place] [address] Performed By: #### 5 7021-8 ####[facility]ORATORYCLIA [id number] [address] [place] Neutrophils/100 WBC (Bld) 76.9 % Normal [facility] Comment on above: Order Comment: Speci men Type: BLOOD SPECIMENOrdering Facility: [facility] Address: [address] [place] [address] Performed By: #### 5 7021-8 ####[facility]ORATORYCLIA [id number] [address] [place] Nucleated RBC (Bld) [#/Vol] 10*3/uL Normal <0.01 [facility] Comment on above: Order Comment: Speci men Type: BLOOD SPECIMENOrdering Facility: [facility] Address: [address] [place] [address] Performed By: #### 5 7021-8 ####[facility]ORATORYCLIA [id number] [address] OF [facility] Nucleated RBC/100 WBC (Bld) [Ratio] 0.0 /100 WBC Normal [facility] Comment on above: Order Comment: Speci men Type: BLOOD SPECIMENOrdering Facility: [facility] Address: [address] [place] [address] Performed By: #### 5 7021-8 ####[facility]ORATORYCLIA [id number] [address] OF [place] Platelet mean volume (Bld) [Entitic vol] 10.3 fL Normal 9.0-12.7 [facility] Comment on above: Order Comment: Speci men Type: BLOOD SPECIMENOrdering Facility: [facility] Address: [address] [place] [address] Performed By: #### 5 7021-8 ####[facility]ORATORYCLIA [id number] [address] OF [place] Platelets (Bld) [#/Vol] 152 10*3/uL Normal 150-400 [facility] Comment on above: Order Comment: Speci men Type: BLOOD SPECIMENOrdering Facility: [facility] Address: [address] [place] [address] Performed By: #### 5 7021-8 ####[facility] LABORATORYCLIA [id number] [address] [place] RBC (Bld) [#/Vol] 2.77 10*6/uL Low 4.20-6.00 [facility] Comment on above: Order Comment: Speci men Type: BLOOD SPECIMENOrdering Facility: [facility] Address: [address] [place] [address] Performed By: #### 5 7021-8 ####[facility]ORATORYCLIA [id number] [address] OF [place] WBC (Bld) [#/Vol] 10.27 10*3/uL Normal 3.70-11.00 [facility] Comment on above: Order Comment: Speci men Type: BLOOD SPECIMENOrdering Facility: [facility] Address: [address] [place] [address] Performed By: #### 5 7021-8 ####[facility]ORATORYCLIA [id number] [address] Magnesium SerPl-mCncon 08-10 Magnesium [Mass/Vol] 1.8 mg/dL Normal 1.7-2.3 [facility] Comment on above: Order Comment: Speci men Type: BLOOD SPECIMENOrdering Facility: [facility] Address: [address] [place] [address] Performed By: #### 1 9123-9, 2777-1, 20614-2 ####[facility] LABORATORYCLIA [id number] [address] NURSING PROGon 08-10-2021 NURSING PROG Normal [facility] NURSING PROG Normal [facility] NUTRITIONon 08-10-2021 NUTRITION Normal [facility] Phosphate SerPl-mCncon 08-10 Phosphate [Mass/Vol] 3.7 mg/dL Normal 2.7-4.8 [facility] Comment on above: Order Comment: Speci men Type: BLOOD SPECIMENOrdering Facility: [facility] Address: [address] [place] [address] Performed By: #### 1 9123-9, 2777-1, 32308-2 ####[facility] LABORATORYCLIA [id number] [address] [place] ALLIED HEALTHon 08-09-2021 ALLIED HEALTH Normal [facility] ANES POSTPROC EVALon 022 ANES POSTPROC EVAL Normal [facility] ANES PRE-OPon 08-09-2021 ANES PRE-OP Normal [facility] BRIEF OP NOTon 08-09-2021 BRIEF OP NOT Normal [facility] Basic metabolic 2000 panelon 08-09-2021 Anion gap [Moles/Vol] 8 mmol/L Low 9-18 [facility] Comment on above: Order Comment: Speci men Type: BLOOD SPECIMENOrdering Facility: [facility] Address: [address] [place] [address] Performed By: #### 2 4321-2, , 2776-05 ####[facility] LABORATORYCLIA [id number] [place] [address] [place] Calcium [Mass/Vol] 9.2 mg/dL Normal 8.5-10.2 [facility] Comment on above: Order Comment: Speci men Type: BLOOD SPECIMENOrdering Facility: [facility] Address: [address] [place] [address] Performed By: #### 2 4321-2, , 2776-05 ####[facility]ORATORYCLIA [id number] [place] [address] [place] Chloride [Moles/Vol] 97 mmol/L Normal 97-105 [facility] Comment on above: Order Comment: Speci men Type: BLOOD SPECIMENOrdering Facility: [facility] Address: [address] [place] [address] Performed By: #### 2 1-2, , 2776-05 ####[facility]ORATORYCLIA [id number] [place] [address] [place] CO2 [Moles/Vol] 30 mmol/L Normal 22-30 [facility] Comment on above: Order Comment: Speci men Type: BLOOD SPECIMENOrdering Facility: [facility] Address: [address] [place] [address] Performed By: #### 2 4321-2, , 2776-05 ####[facility]ORATORYCLIA [id number] [place] [address] [place] Creatinine [Mass/Vol] 0.51 mg/dL Low 0.73-1.22 [facility] Comment on above: Order Comment: Speci men Type: BLOOD SPECIMENOrdering Facility: [facility] Address: [address] [place] [address] Performed By: #### 2 4321-2, , 2776-05 ####[facility]ITALCLIA [id number] [address] [place] ESTIMATED GLOMERULAR FILTRATION RATE 110 mL/min/1.73m??? Normal >=60 [facility] Comment on above: Order Comment: Shira francia Type: BLOOD SPECIMENOrdering Facility: [facility] Address: [address] [place] [address] Result Comment: Luzmaria mated Glomerular Filtration Rate [...] Performed By: #### 2 4321-2, , 2776-05 ####[facility]ITALIA [id number] [place] [address] [place] Glucose [Mass/Vol] 106 mg/dL High 74-99 [facility] Comment on above: Order Comment: Shira feldman Type: BLOOD SPECIMENOrdering Facility: [facility] Address: [address] [place] [address] Result Comment: The [place] Diabetes Association (ADA) provides guidance for cutoff [...] Standards of Medical Care in Diabetes 2016, [employer]. Diabetes Care. 2016.39(Suppl 1). Performed By: #### 2 4321-2, , 2776-05 ####[facility] LABORATORYCLIA [id number] [place] [address] [place] Potassium [Moles/Vol] 4.1 mmol/L Normal 3.7-5.1 [facility] Comment on above: Order Comment: Speci men Type: BLOOD SPECIMENOrdering Facility: [facility] Address: [address] [place] [address] Performed By: #### 2 4321-2, 62264-7, 2776- ####[facility]ORATORYCLIA [id number] [address] [place] Sodium [Moles/Vol] 135 mmol/L Low 136-144 [facility] Comment on above: Order Comment: Speci men Type: BLOOD SPECIMENOrdering Facility: [facility] Address: [address] [place] [address] Performed By: #### 2 4321-2, , 2776- ####[facility]ORATORYCLIA [id number] [address] STATES [facility] Urea nitrogen [Mass/Vol] 26 mg/dL High 9-24 [facility] Comment on above: Order Comment: Speci men Type: BLOOD SPECIMENOrdering Facility: [facility] Address: [address] [place] [address] Performed By: #### 2 4321-2, , 2776-05 ####[facility]ATORYCLIA [id number] [address] [place] CBC W Auto Differential pane l (Bld)on 08-09-2021 Basophils (Bld) [#/Vol] 0.06 10*3/uL Normal <0.11 [facility] Comment on above: Order Comment: Speci men Type: BLOOD SPECIMENOrdering Facility: [facility] Address: [address] [place] [address] Performed By: #### 5 7021-8 ####[facility]ATORYCLIA [id number] [address] Basophils/100 WBC (Bld) 0.5 % Normal [facility] Comment on above: Order Comment: Speci men Type: BLOOD SPECIMENOrdering Facility: [facility] Address: [address] [place] [address] Performed By: #### 5 7021-8 ####[facility]ATORYCLIA [id number] [address] Differential cell count method Nom (Bld) Auto Normal [facility] Comment on above: Order Comment: Speci men Type: BLOOD SPECIMENOrdering Facility: [facility] Address: [address] [place] [address] Performed By: #### 5 7021-8 ####[facility]ORATORYCLIA [id number] [address] STATES [facility] Eosinophils (Bld) [#/Vol] 0.42 10*3/uL Normal <0.46 [facility] Comment on above: Order Comment: Speci men Type: BLOOD SPECIMENOrdering Facility: [facility] Address: [address] [place] [address] Performed By: #### 5 7021-8 ####[facility]ATORYCLIA [id number] [address] Eosinophils/100 WBC (Bld) 3.8 % Normal [facility] Comment on above: Order Comment: Speci men Type: BLOOD SPECIMENOrdering Facility: [facility] Address: [address] [place] [address] Performed By: #### 5 7021-8 ####[facility] LABORATORYCLIA [id number] [address] Erythrocyte distribution width (RBC) [Ratio] 17.6 % High 11.5-15.0 [facility] Comment on above: Order Comment: Speci men Type: BLOOD SPECIMENOrdering Facility: [facility] Address: [address] [place] [address] Performed By: #### 5 7021-8 ####[facility] LABORATORYCLIA [id number] [address] Hematocrit (Bld) [Volume fraction] 29.3 % Low 39.0-51.0 [facility] Comment on above: Order Comment: Speci men Type: BLOOD SPECIMENOrdering Facility: [facility] Address: [address] [place] [address] Performed By: #### 5 7021-8 ####[facility] LABORATORYCLIA [id number] [address] [facility] Hemoglobin (Bld) [Mass/Vol] 9.0 g/dL Low 13.0-17.0 [facility] Comment on above: Order Comment: Speci men Type: BLOOD SPECIMENOrdering Facility: [facility] Address: [address] [place] [address] Performed By: #### 5 7021-8 ####[facility] LABORATORYCLIA [id number] [address] IMMATURE GRAN % 0.5 % Normal [facility] Comment on above: Order Comment: Speci men Type: BLOOD SPECIMENOrdering Facility: [facility] Address: [address] [place] [address] Performed By: #### 5 7021-8 ####[facility] LABORATORYCLIA [id number] [address] IMMATURE GRAN ABS 0.05 k/uL Normal <0.10 [facility] Comment on above: Order Comment: Speci men Type: BLOOD SPECIMENOrdering Facility: [facility] Address: [address] [place] [address] Performed By: #### 5 7021-8 ####[facility] LABORATORYCLIA [id number] [address] Lymphocytes (Bld) [#/Vol] 2.00 10*3/uL Normal 1.00-4.00 [facility] Comment on above: Order Comment: Speci men Type: BLOOD SPECIMENOrdering Facility: [facility] Address: [address] [place] [address] Performed By: #### 5 7021-8 ####[facility] LABORATORYCLIA [id number] [address] Lymphocytes/100 WBC (Bld) 18.1 % Normal [facility] Comment on above: Order Comment: Speci men Type: BLOOD SPECIMENOrdering Facility: [facility] Address: [address] [place] [address] Performed By: #### 5 7021-8 ####[facility] LABORATORYCLIA [id number] [address] MCH (RBC) [Entitic mass] 28.1 pg Normal 26.0-34.0 [facility] Comment on above: Order Comment: Speci men Type: BLOOD SPECIMENOrdering Facility: [facility] Address: [address] [place] [address] Performed By: #### 5 7021-8 ####[facility] LABORATORYCLIA [id number] [address] MCHC (RBC) [Mass/Vol] 30.7 g/dL Normal 30.5-36.0 [facility] Comment on above: Order Comment: Speci men Type: BLOOD SPECIMENOrdering Facility: [facility] Address: [address] [place] [address] Performed By: #### 5 7021-8 ####[facility] LABORATORYCLIA [id number] [address] MCV (RBC) [Entitic vol] 91.6 fL Normal 80.0-100.0 [facility] Comment on above: Order Comment: Speci men Type: BLOOD SPECIMENOrdering Facility: [facility] Address: [address] [place] [address] Performed By: #### 5 7021-8 ####[facility] LABORATORYCLIA [id number] [address] Monocytes (Bld) [#/Vol] 0.68 10*3/uL Normal <0.87 [facility] Comment on above: Order Comment: Speci men Type: BLOOD SPECIMENOrdering Facility: [facility] Address: [address] [place] [address] Performed By: #### 5 7021-8 ####[facility] LABORATORYCLIA [id number] [address] Monocytes/100 WBC (Bld) 6.2 % Normal [facility] Comment on above: Order Comment: Speci men Type: BLOOD SPECIMENOrdering Facility: [facility] Address: [address] [place] [address] Performed By: #### 5 7021-8 ####[facility] LABORATORYCLIA [id number] [address] [place] Neutrophils (Bld) [#/Vol] 7.82 10*3/uL High 1.45-7.50 [facility] Comment on above: Order Comment: Speci men Type: BLOOD SPECIMENOrdering Facility: [facility] Address: [address] [place] [address] Performed By: #### 5 7021-8 ####[facility] LABORATORYCLIA [id number] [address] Neutrophils/100 WBC (Bld) 70.9 % Normal [facility] Comment on above: Order Comment: Speci men Type: BLOOD SPECIMENOrdering Facility: [facility] Address: [address] [place] [address] Performed By: #### 5 7021-8 ####[facility]ORATORYCLIA [id number] [address] [place] Nucleated RBC (Bld) [#/Vol] 10*3/uL Normal <0.01 [facility] Comment on above: Order Comment: Speci men Type: BLOOD SPECIMENOrdering Facility: [facility] Address: [address] [place] [address] Performed By: #### 5 7021-8 ####[facility] LABORATORYCLIA [id number] [address] [place] Nucleated RBC/100 WBC (Bld) [Ratio] 0.0 /100 WBC Normal [facility] Comment on above: Order Comment: Speci men Type: BLOOD SPECIMENOrdering Facility: [facility] Address: [address] [place] [address] Performed By: #### 5 7021-8 ####[facility] LABORATORYCLIA [id number] [address] [place] Platelet mean volume (Bld) [Entitic vol] 10.1 fL Normal 9.0-12.7 [facility] Comment on above: Order Comment: Speci men Type: BLOOD SPECIMENOrdering Facility: [facility] Address: [address] [place] [address] Performed By: #### 5 7021-8 ####[facility] LABORATORYCLIA [id number] [address] Platelets (Bld) [#/Vol] 160 10*3/uL Normal 150-400 [facility] Comment on above: Order Comment: Speci men Type: BLOOD SPECIMENOrdering Facility: [facility] Address: [address] [place] [address] Performed By: #### 5 7021-8 ####[facility] LABORATORYCLIA [id number] [address] [place] RBC (Bld) [#/Vol] 3.20 10*6/uL Low 4.20-6.00 [facility] Comment on above: Order Comment: Speci men Type: BLOOD SPECIMENOrdering Facility: [facility] Address: [address] [place], [place] [address] Performed By: #### 5 7021-8 ####[facility] LABORATORYCLIA [id number] [address] [place] WBC (Bld) [#/Vol] 11.03 10*3/uL High 3.70-11.00 [facility] Comment on above: Order Comment: Speci men Type: BLOOD SPECIMENOrdering Facility: [facility] Address: [address] [place] [address] Performed By: #### 5 7021-8 ####[facility] LABORATORYCLIA [id number] [address] CONSULT PROGon 08-09-2021 CONSULT PROG Normal [facility] CT BRAIN WO IVCONon 08-10-19 CT BRAIN WO IVCON Normal [facility] CT BRAIN WO IVCON Normal [facility] Magnesium SerPl-mCncon 08-09 Magnesium [Mass/Vol] 2.0 mg/dL Normal 1.7-2.3 [facility] Comment on above: Order Comment: Shira feldman Type: BLOOD SPECIMENOrdering Facility: [facility] Address: [address] [place] [address] Performed By: #### 2 4321-2, 57725-0, 2777-1 ####[facility] LABORATORYCLIA [id number] [address] NURSING PROGon 08-09-2021 NURSING PROG Normal [facility] OPERATIVE NOon 08-09-2021 OPERATIVE NO Normal [facility] PT panel Coag (PPP)on 2021 INR Coag (PPP) [Relative time] 1.1 {INR} Normal 0.9-1.3 [facility] Comment on above: Order Comment: Shira feldman Type: BLOOD SPECIMENOrdering Facility: [facility] Address: [address] [place] [address] Result Comment: Yris min K Antagonist (VKA) Therapeutic Range: INR 2 to 3 (Target INR of 2.5)Note: For patients treated with VKA drugs, such as warfarin, the [employer] 2012 Guideline recommends [...] al. Chest 2012, 141:7S-47SNishimura RA, et al. [facility] 2017, 70: 252-289 Performed By: #### 3 4528-0, 40376-7 ####[facility] LABORATORYCLIA [id number] [address] [place] PT Coag (PPP) [Time] 11.7 s Normal 9.7-13.0 [facility] Comment on above: Order Comment: Speci men Type: BLOOD SPECIMENOrdering Facility: [facility] Address: [address] [place] [address] Performed By: #### 3 4528-0, 77416-3 ####[facility] LABORATORYCLIA [id number] [address] [place] Phosphate SerPl-mCncon 08-09 Phosphate [Mass/Vol] 4.0 mg/dL Normal 2.7-4.8 [facility] Comment on above: Order Comment: Speci men Type: BLOOD SPECIMENOrdering Facility: [facility] Address: [address] [place] [address] Performed By: #### 2 4321-2, 32219-1, 2777-1 ####[facility] LABORATORYCLIA [id number] [address] [place] THERAPY NTon 08-09-2021 THERAPY NT Normal [facility] THERAPY NT Normal [facility] TYPE AND SCREENon 08-09-2021 ABO O Normal [facility] Comment on above: Order Comment: Speci men Type: BLOOD SPECIMENOrdering Facility: [facility] Address: [address] [place] [address] Performed By: #### T SCR ####[facility] BLOOD BANKCLIA [id number] [address] [place] HISTORICAL AB SCR STATUS Negative Normal [facility] Comment on above: Order Comment: Speci men Type: BLOOD SPECIMENOrdering Facility: [facility] Address: [address] [place] [address] Performed By: #### T SCR ####[facility] BLOOD BANKCLIA [id number] [address] Rh Nom (Bld) Positive Normal [facility] Comment on above: Order Comment: Speci men Type: BLOOD SPECIMENOrdering Facility: [facility] Address: [address] [place] [address] Performed By: #### T SCR ####[facility] BLOOD BANKCLIA [id number] [address] TYPE AND SCREEN EXPIRATION 08/12/2021 23:59 Normal [facility] Comment on above: Order Comment: Speci men Type: BLOOD SPECIMENOrdering Facility: [facility] Address: [address] [place] [address] Performed By: #### T SCR ####[facility] BLOOD BANKCLIA [id number] [address] XR ABD 2V SUPINE W UPR/DECUB /CTLon 08-09-2021 XR ABD 2V SUPINE W UPR/DECUB/CTL Normal [facility] XR CHEST 1V FRONTALon 2021 XR CHEST 1V FRONTAL Normal [facility] XR NECK SOFT TISSUE 2V AP/LA Ton 08-09-2021 XR NECK SOFT TISSUE 2V AP/LAT Normal [facility] XR SKULL 2V AP/LATon 022 XR SKULL 2V AP/LAT Normal [facility] aPTT PPPon 08-09-2021 aPTT Coag (PPP) [Time] 26.8 s Normal 23.0-32.4 [facility] Comment on above: Order Comment: Speci men Type: BLOOD SPECIMENOrdering Facility: [facility] Address: [address] [place] [address] Performed By: #### 3 4528-0, 64834-0 ####[facility] LABORATORYCLIA [id number] [address] CASE MANAGEMon 08-08-2021 CASE MANAGEM Normal [facility] CBC W Auto Differential pane l (Bld)on 08-08-2021 Basophils (Bld) [#/Vol] 0.05 10*3/uL Normal <0.11 [facility] Comment on above: Order Comment: Speci men Type: BLOOD SPECIMENOrdering Facility: [facility] Address: [address] [place] [address] Performed By: #### 5 7021-8 ####[facility]ORATORYCLIA [id number] [address] [place] Basophils/100 WBC (Bld) 0.5 % Normal [facility] Comment on above: Order Comment: Speci men Type: BLOOD SPECIMENOrdering Facility: [facility] Address: [address] [place] [address] Performed By: #### 5 7021-8 ####[facility] LABORATORYCLIA [id number] [address] OF [facility] Differential cell count method Nom (Bld) Auto Normal [facility] Comment on above: Order Comment: Speci men Type: BLOOD SPECIMENOrdering Facility: [facility] Address: [address] [place] [address] Performed By: #### 5 7021-8 ####[facility] LABORATORYCLIA [id number] [address] [place] Eosinophils (Bld) [#/Vol] 0.17 10*3/uL Normal <0.46 [facility] Comment on above: Order Comment: Speci men Type: BLOOD SPECIMENOrdering Facility: [facility] Address: [address] [place] [address] Performed By: #### 5 7021-8 ####[facility] LABORATORYCLIA [id number] [address] Eosinophils/100 WBC (Bld) 1.6 % Normal [facility] Comment on above: Order Comment: Speci men Type: BLOOD SPECIMENOrdering Facility: [facility] Address: [address] [address] Performed By: #### 5 7021-8 ####[facility] LABORATORYCLIA [id number] [address] Erythrocyte distribution width (RBC) [Ratio] 17.8 % High 11.5-15.0 [facility] Comment on above: Order Comment: Speci men Type: BLOOD SPECIMENOrdering Facility: [facility] Address: [address] [place] [address] Performed By: #### 5 7021-8 ####[facility] LABORATORYCLIA [id number] [address] Hematocrit (Bld) [Volume fraction] 29.6 % Low 39.0-51.0 [facility] Comment on above: Order Comment: Speci men Type: BLOOD SPECIMENOrdering Facility: [facility] Address: [address] [place] [address] Performed By: #### 5 7021-8 ####[facility] LABORATORYCLIA [id number] [address] Hemoglobin (Bld) [Mass/Vol] 9.0 g/dL Low 13.0-17.0 [facility] Comment on above: Order Comment: Speci men Type: BLOOD SPECIMENOrdering Facility: [facility] Address: [address] [place] [address] Performed By: #### 5 7021-8 ####[facility] LABORATORYCLIA [id number] [address] IMMATURE GRAN % 0.5 % Normal [facility] Comment on above: Order Comment: Speci men Type: BLOOD SPECIMENOrdering Facility: [facility] Address: [address] [place] [address] Performed By: #### 5 7021-8 ####[facility] LABORATORYCLIA [id number] [address] IMMATURE GRAN ABS 0.05 k/uL Normal <0.10 [facility] Comment on above: Order Comment: Speci men Type: BLOOD SPECIMENOrdering Facility: [facility] Address: [address] [place] [address] Performed By: #### 5 7021-8 ####[facility] LABORATORYCLIA [id number] [address] OF [facility] Lymphocytes (Bld) [#/Vol] 1.93 10*3/uL Normal 1.00-4.00 [facility] Comment on above: Order Comment: Speci men Type: BLOOD SPECIMENOrdering Facility: [facility] Address: [address] [place] [address] Performed By: #### 5 7021-8 ####[facility] LABORATORYCLIA [id number] [address] Lymphocytes/100 WBC (Bld) 18.2 % Normal [facility] Comment on above: Order Comment: Speci men Type: BLOOD SPECIMENOrdering Facility: [facility] Address: [address] [place] [address] Performed By: #### 5 7021-8 ####[facility] LABORATORYCLIA [id number] [address] [place] MCH (RBC) [Entitic mass] 28.1 pg Normal 26.0-34.0 [facility] Comment on above: Order Comment: Speci men Type: BLOOD SPECIMENOrdering Facility: [facility] Address: [address] [place] [address] Performed By: #### 5 7021-8 ####[facility] LABORATORYCLIA [id number] [address] [place] MCHC (RBC) [Mass/Vol] 30.4 g/dL Low 30.5-36.0 [facility] Comment on above: Order Comment: Speci men Type: BLOOD SPECIMENOrdering Facility: [facility] Address: [address] [place] [address] Performed By: #### 5 7021-8 ####[facility] LABORATORYCLIA [id number] [address] [place] MCV (RBC) [Entitic vol] 92.5 fL Normal 80.0-100.0 [facility] Comment on above: Order Comment: Speci men Type: BLOOD SPECIMENOrdering Facility: [facility] Address: [address] [place] [address] Performed By: #### 5 7021-8 ####[facility] LABORATORYCLIA [id number] [place] [address] [place] Monocytes (Bld) [#/Vol] 0.75 10*3/uL Normal <0.87 [facility] Comment on above: Order Comment: Speci men Type: BLOOD SPECIMENOrdering Facility: [facility] Address: [address] [place] [address] Performed By: #### 5 7021-8 ####[facility] LABORATORYCLIA [id number] [address] Monocytes/100 WBC (Bld) 7.1 % Normal [facility] Comment on above: Order Comment: Speci men Type: BLOOD SPECIMENOrdering Facility: [facility] Address: [address] [place] [address] Performed By: #### 5 7021-8 ####[facility] LABORATORYCLIA [id number] [address] [place] Neutrophils (Bld) [#/Vol] 7.65 10*3/uL High 1.45-7.50 [facility] Comment on above: Order Comment: Speci men Type: BLOOD SPECIMENOrdering Facility: [facility] Address: [address] [place] [address] Performed By: #### 5 7021-8 ####[facility] LABORATORYCLIA [id number] [address] [place] Neutrophils/100 WBC (Bld) 72.1 % Normal [facility] Comment on above: Order Comment: Speci men Type: BLOOD SPECIMENOrdering Facility: [facility] Address: [address] [place] [address] Performed By: #### 5 7021-8 ####[facility] LABORATORYCLIA [id number] [address] [place] Nucleated RBC (Bld) [#/Vol] 10*3/uL Normal <0.01 [facility] Comment on above: Order Comment: Speci men Type: BLOOD SPECIMENOrdering Facility: [facility] Address: [address] [place] [address] Performed By: #### 5 7021-8 ####[facility] LABORATORYCLIA [id number] [address] [place] Nucleated RBC/100 WBC (Bld) [Ratio] 0.0 /100 WBC Normal [facility] Comment on above: Order Comment: Speci men Type: BLOOD SPECIMENOrdering Facility: [facility] Address: [address] [place] [address] Performed By: #### 5 7021-8 ####[facility] LABORATORYCLIA [id number] [address] [place] Platelet mean volume (Bld) [Entitic vol] 9.8 fL Normal 9.0-12.7 [facility] Comment on above: Order Comment: Speci men Type: BLOOD SPECIMENOrdering Facility: [facility] Address: [address] [place] [address] Performed By: #### 5 7021-8 ####[facility] LABORATORYCLIA [id number] [address] [place] Platelets (Bld) [#/Vol] 175 10*3/uL Normal 150-400 [facility] Comment on above: Order Comment: Speci men Type: BLOOD SPECIMENOrdering Facility: [facility] Address: [address] [place] [address] Performed By: #### 5 7021-8 ####[facility] LABORATORYCLIA [id number] [address] [place] RBC (Bld) [#/Vol] 3.20 10*6/uL Low 4.20-6.00 [facility] Comment on above: Order Comment: Speci men Type: BLOOD SPECIMENOrdering Facility: [facility] Address: [address] [place] [address] Performed By: #### 5 7021-8 ####[facility] LABORATORYCLIA [id number] [address] STATES OF [facility] WBC (Bld) [#/Vol] 10.60 10*3/uL Normal 3.70-11.00 [facility] Comment on above: Order Comment: Speci men Type: BLOOD SPECIMENOrdering Facility: [facility] Address: [address] [place] [address] Performed By: #### 5 7021-8 ####[facility] LABORATORYCLIA [id number] [address] BRAIN WO IVCONon 08-09-19 CT BRAIN WO IVCON Normal [facility] NURSING PROGon 08-08-2021 NURSING PROG Normal [facility] Prealbumin [Mass/Vol]on Prealbumin Nephelometry [Mass/Vol] 29 mg/dL Normal 17-36 [facility] Comment on above: Order Comment: Speci men Type: BLOOD SPECIMENOrdering Facility: [facility] Address: [address] [place] [address] Performed By: #### 1 4338-8 ####[facility] LABORATORYCLIA [id number] [address] SARS-CoV-2 RNA Resp Ql MEGAN+p robeon 08-08-2021 SARS-CoV-2 (COVID-19) RNA MEGAN+probe Ql (Resp) COVID 19 RESULT: SARS-CoV-2 (Agent of COVID-19) Not Detected by RT-PCR or equivalent method. This test has been authorized by FDA under an Emergency Use Authorization (EUA). [facility] Comment on above: Performed By: #### 9 4500-6 ####[facility] LABORATORYCLIA [id number] [address] [place] ALLIED HEALTHon 08-07-2021 ALLIED HEALTH Normal [facility] Basic metabolic 2000 panelon 08-07-2021 Anion gap [Moles/Vol] 9 mmol/L Normal 9-18 [facility] Comment on above: Order Comment: Speci men Type: BLOOD SPECIMENOrdering Facility: [facility] Address: [address] [place] [address] Performed By: #### 2 4321-2, 2776-, , HFP ####[facility] LABORATORYCLIA [id number] [place] [address] [place] Calcium [Mass/Vol] 9.4 mg/dL Normal 8.5-10.2 [facility] Comment on above: Order Comment: Speci men Type: BLOOD SPECIMENOrdering Facility: [facility] Address: [address] [place] [address] Performed By: #### 2 4321-2, 2776-05, , HFP ####[facility] LABORATORYCLIA [id number] [place] [address] [place] Chloride [Moles/Vol] 98 mmol/L Normal 97-105 [facility] Comment on above: Order Comment: Speci men Type: BLOOD SPECIMENOrdering Facility: [facility] Address: [address] [place] [address] Performed By: #### 2 4321-2, 2776-05, , HFP ####[facility] LABORATORYCLIA [id number] [place] [address] [place] CO2 [Moles/Vol] 29 mmol/L Normal 22-30 [facility] Comment on above: Order Comment: Speci men Type: BLOOD SPECIMENOrdering Facility: [facility] Address: [address] [place] [address] Performed By: #### 2 4321-2, 2776-05, , HFP ####[facility] LABORATORYCLIA [id number] [place] [address] [place] Creatinine [Mass/Vol] 0.67 mg/dL Low 0.73-1.22 [facility] Comment on above: Order Comment: Shira feldman Type: BLOOD SPECIMENOrdering Facility: [facility] Address: [address] [id number] Performed By: #### 2 4321-2, 2777-1, , [facility] ####[facility] LABORATORYCLIA [id number] [address] [place] [id number] [facility] [place] ESTIMATED GLOMERULAR FILTRATION RATE 101 mL/min/1.73m??? Normal >=60 [facility] Comment on above: Order Comment: Shira feldman Type: BLOOD SPECIMENOrdering Facility: [facility] Address: [address] [place], [place] [id number] Result Comment: Luzmaria mated Glomerular Filtration Rate [...] GFR. Performed By: #### 2 4321-2, 2777-1, , [facility] ####[facility] LABORATORYCLIA [id number] [place] [address] [place] Glucose [Mass/Vol] 117 mg/dL High 74-99 [facility] Comment on above: Order Comment: Shira feldman Type: BLOOD SPECIMENOrdering Facility: [facility] Address: [address] [phone] Result Comment: The [place] [employer] (ADA) provides guidance for cutoff [...] Standards of Medical Care in Diabetes 2016, [place] [employer]. Diabetes Care. 2016.39(Suppl 1). Performed By: #### 2 4321-2, 2776-, , [facility] ####[facility] LABORATORYCLIA [id number] [place] [address] [place] Potassium [Moles/Vol] 4.1 mmol/L Normal 3.7-5.1 [facility] Comment on above: Order Comment: oJhni francia Type: BLOOD SPECIMENOrdering Facility: [facility] Address: [address] [place] [address] Performed By: #### 2 4321-2, 2776-05, , [facility] ####[facility]ITALCLIA [id number] [address] [place] [facility] Sodium [Moles/Vol] 136 mmol/L Normal 136-144 [facility] Comment on above: Order Comment: Johni francia Type: BLOOD SPECIMENOrdering Facility: [facility] Address: [address] [place] [address] Performed By: #### 2 4321-2, 2776-05, , [facility] ####[facility] [facility]ATORYCLIA [id number] [address] STATES [facility] Urea nitrogen [Mass/Vol] 31 mg/dL High 9-24 [facility] Comment on above: Order Comment: Shira feldman Type: BLOOD SPECIMENOrdering Facility: [facility] Address: [address] [place] [address] Performed By: #### 2 4321-2, 2776-05, , [facility] ####[facility]ATORYCLIA [id number] [place] [address] [place] CBC W Auto Differential pane l (Bld)on 08-07-2021 Basophils (Bld) [#/Vol] 0.03 10*3/uL Normal <0.11 [facility] Comment on above: Order Comment: Johni men Type: BLOOD SPECIMENOrdering Facility: [facility] Address: [address] [address] Performed By: #### 5 7021-8 ####[facility]ATORYCLIA [id number] [address] [place] [facility] Basophils/100 WBC (Bld) 0.3 % Normal [facility] Comment on above: Order Comment: Speci men Type: BLOOD SPECIMENOrdering Facility: [facility] Address: [address] [place] [address] Performed By: #### 5 7021-8 ####[facility]ORATORYCLIA [id number] [address] OF [facility] Differential cell count method Nom (Bld) Auto Normal [facility] Comment on above: Order Comment: Speci men Type: BLOOD SPECIMENOrdering Facility: [facility] Address: [address] [place] [address] Performed By: #### 5 7021-8 ####[facility]ATORYCLIA [id number] [address] [place] Eosinophils (Bld) [#/Vol] 0.16 10*3/uL Normal <0.46 [facility] Comment on above: Order Comment: Speci men Type: BLOOD SPECIMENOrdering Facility: [facility] Address: [address] [place] [address] Performed By: #### 5 7021-8 ####[facility]ATORYCLIA [id number] [address] [place] Eosinophils/100 WBC (Bld) 1.6 % Normal [facility] Comment on above: Order Comment: Speci men Type: BLOOD SPECIMENOrdering Facility: [facility] Address: [address] [place] [address] Performed By: #### 5 7021-8 ####[facility]ATORYCLIA [id number] [address] [place] Erythrocyte distribution width (RBC) [Ratio] 18.1 % High 11.5-15.0 [facility] Comment on above: Order Comment: Speci men Type: BLOOD SPECIMENOrdering Facility: [facility] Address: [address] [place] [address] Performed By: #### 5 7021-8 ####[facility]ATORYCLIA [id number] [address] Hematocrit (Bld) [Volume fraction] 30.6 % Low 39.0-51.0 [facility] Comment on above: Order Comment: Speci men Type: BLOOD SPECIMENOrdering Facility: [facility] Address: [address] [place] [address] Performed By: #### 5 7021-8 ####[facility]ATORYCLIA [id number] [address] Hemoglobin (Bld) [Mass/Vol] 9.4 g/dL Low 13.0-17.0 [facility] Comment on above: Order Comment: Speci men Type: BLOOD SPECIMENOrdering Facility: [facility] Address: [address] [place] [address] Performed By: #### 5 7021-8 ####[facility]ATORYCLIA [id number] [address] IMMATURE GRAN % 0.4 % Normal [facility] Comment on above: Order Comment: Speci men Type: BLOOD SPECIMENOrdering Facility: [facility] Address: [address] [place] [address] Performed By: #### 5 7021-8 ####[facility]ORATORYCLIA [id number] [address] IMMATURE GRAN ABS 0.04 k/uL Normal <0.10 [facility] Comment on above: Order Comment: Speci men Type: BLOOD SPECIMENOrdering Facility: [facility] Address: [address] [place] [address] Performed By: #### 5 7021-8 ####[facility]ATORYCLIA [id number] [address] Lymphocytes (Bld) [#/Vol] 2.05 10*3/uL Normal 1.00-4.00 [facility] Comment on above: Order Comment: Speci men Type: BLOOD SPECIMENOrdering Facility: [facility] Address: [address] [place] [address] Performed By: #### 5 7021-8 ####[facility]ORATORYCLIA [id number] [address] Lymphocytes/100 WBC (Bld) 20.2 % Normal [facility] Comment on above: Order Comment: Speci men Type: BLOOD SPECIMENOrdering Facility: [facility] Address: [address] [place] [address] Performed By: #### 5 7021-8 ####[facility]ORATORYCLIA [id number] [address] STATES OF [facility] MCH (RBC) [Entitic mass] 28.8 pg Normal 26.0-34.0 [facility] Comment on above: Order Comment: Speci men Type: BLOOD SPECIMENOrdering Facility: [facility] Address: [address] [place] [address] Performed By: #### 5 7021-8 ####[facility]ATORYCLIA [id number] [address] MCHC (RBC) [Mass/Vol] 30.7 g/dL Normal 30.5-36.0 [facility] Comment on above: Order Comment: Speci men Type: BLOOD SPECIMENOrdering Facility: [facility] Address: [address] [place] [address] Performed By: #### 5 7021-8 ####[facility]ATORYCLIA [id number] [address] MCV (RBC) [Entitic vol] 93.9 fL Normal 80.0-100.0 [facility] Comment on above: Order Comment: Speci men Type: BLOOD SPECIMENOrdering Facility: [facility] Address: [address] [place] [address] Performed By: #### 5 7021-8 ####[facility]ORATORYCLIA [id number] [place] [address] [place] Monocytes (Bld) [#/Vol] 0.64 10*3/uL Normal <0.87 [facility] Comment on above: Order Comment: Speci men Type: BLOOD SPECIMENOrdering Facility: [facility] Address: [address] [place] [address] Performed By: #### 5 7021-8 ####[facility]ATORYCLIA [id number] [address] [place] Monocytes/100 WBC (Bld) 6.3 % Normal [facility] Comment on above: Order Comment: Speci men Type: BLOOD SPECIMENOrdering Facility: [facility] Address: [address] [place] [address] Performed By: #### 5 7021-8 ####[facility]ATORYCLIA [id number] [address] [place] Neutrophils (Bld) [#/Vol] 7.22 10*3/uL Normal 1.45-7.50 [facility] Comment on above: Order Comment: Speci men Type: BLOOD SPECIMENOrdering Facility: [facility] Address: [address] [place] [address] Performed By: #### 5 7021-8 ####[facility]ATORYCLIA [id number] [address] [place] Neutrophils/100 WBC (Bld) 71.2 % Normal [facility] Comment on above: Order Comment: Speci men Type: BLOOD SPECIMENOrdering Facility: [facility] Address: [address] [place] [address] Performed By: #### 5 7021-8 ####[facility]ATORYCLIA [id number] [address] [place] Nucleated RBC (Bld) [#/Vol] 10*3/uL Normal <0.01 [facility] Comment on above: Order Comment: Speci men Type: BLOOD SPECIMENOrdering Facility: [facility] Address: [address] [place] [address] Performed By: #### 5 7021-8 ####[facility]ATORYCLIA [id number] [address] [place] Nucleated RBC/100 WBC (Bld) [Ratio] 0.0 /100 WBC Normal [facility] Comment on above: Order Comment: Speci men Type: BLOOD SPECIMENOrdering Facility: [facility] Address: [address] [place] [address] Performed By: #### 5 7021-8 ####[facility]ORATORYCLIA [id number] [place] [address] [place] Platelet mean volume (Bld) [Entitic vol] 9.9 fL Normal 9.0-12.7 [facility] Comment on above: Order Comment: Speci men Type: BLOOD SPECIMENOrdering Facility: [facility] Address: [address] [place] [address] Performed By: #### 5 7021-8 ####[facility]ATORYCLIA [id number] [place] [address] [place] Platelets (Bld) [#/Vol] 227 10*3/uL Normal 150-400 [facility] Comment on above: Order Comment: Speci men Type: BLOOD SPECIMENOrdering Facility: [facility] Address: [address] [place] [address] Performed By: #### 5 7021-8 ####[facility]ATORYCLIA [id number] [place] [address] [place] RBC (Bld) [#/Vol] 3.26 10*6/uL Low 4.20-6.00 [facility] Comment on above: Order Comment: Speci men Type: BLOOD SPECIMENOrdering Facility: [facility] Address: [address] [place] [address] Performed By: #### 5 7021-8 ####[facility]ATORYCLIA [id number] [address] [place] WBC (Bld) [#/Vol] 10.14 10*3/uL Normal 3.70-11.00 [facility] Comment on above: Order Comment: Speci men Type: BLOOD SPECIMENOrdering Facility: [facility] Address: [address] [place] [address] Performed By: #### 5 7021-8 ####[facility]ORATORYCLIA [id number] [address] [place] CT BRAIN WO IVCONon 08-08-19 CT BRAIN WO IVCON Normal [facility] HEPATIC FUNCTION PNLon 08-07 Albumin [Mass/Vol] 3.6 g/dL Low 3.9-4.9 [facility] Comment on above: Order Comment: Speci men Type: BLOOD SPECIMENOrdering Facility: [facility] Address: [address] [place] [address] Performed By: #### 2 4321-2, 2776-, , [facility] ####[facility]ORATORYCLIA [id number] [address] [place] ALP [Catalytic activity/Vol] 124 U/L High 38-113 [facility] Comment on above: Order Comment: Speci men Type: BLOOD SPECIMENOrdering Facility: [facility] Address: [address] [place] [address] Performed By: #### 2 4321-2, 277-1, , [facility] ####[facility]ATORYCLIA [id number] [address] [place] ALT With P-5'-P [Catalytic activity/Vol] 29 U/L Normal 10-54 [facility] Comment on above: Order Comment: Speci men Type: BLOOD SPECIMENOrdering Facility: [facility] Address: [address] [place] [address] Performed By: #### 2 4321-2, 277-1, , [facility] ####[facility]ATORYCLIA [id number] [address] [place] AST With P-5'-P [Catalytic activity/Vol] 18 U/L Normal 14-40 [facility] Comment on above: Order Comment: Speci men Type: BLOOD SPECIMENOrdering Facility: [facility] Address: [address] [place] [address] Performed By: #### 2 4321-2, 2776-, , [facility] ####[facility]ATORYCLIA [id number] [address] STATES OF [facility] Bilirubin [Mass/Vol] 0.3 mg/dL Normal 0.2-1.3 [facility] Comment on above: Order Comment: Speci men Type: BLOOD SPECIMENOrdering Facility: [facility] Address: [address] [place] [address] Performed By: #### 2 4321-2, 2776-05, , [facility] ####[facility]ATORYCLIA [id number] [address] Bilirubin.conjugated [Mass/Vol] mg/dL Normal <0.2 [facility] Comment on above: Order Comment: Speci men Type: BLOOD SPECIMENOrdering Facility: [facility] Address: [address] [place] [address] Performed By: #### 2 4321-2, 2776-05, , [facility] ####[facility]ATORYCLIA [id number] [address] STATES OF [facility] Protein [Mass/Vol] 6.4 g/dL Normal 6.3-8.0 [facility] Comment on above: Order Comment: Speci men Type: BLOOD SPECIMENOrdering Facility: [facility] Address: [address] [place], [place] [address] Performed By: #### 2 4321-2, 2776-05, , [facility] ####[facility]ATORYCLIA [id number] [address] [place] Magnesium SerPl-mCncon 08-07 Magnesium [Mass/Vol] 2.3 mg/dL Normal 1.7-2.3 [facility] Comment on above: Order Comment: Speci men Type: BLOOD SPECIMENOrdering Facility: [facility] Address: [address] [place] [address] Performed By: #### 2 4321-2, 2776-05, , [facility] ####[facility]ATORYCLIA [id number] [address] OF [facility] NURSING PROGon 08-07-2021 NURSING PROG Normal [facility] Phosphate SerPl-mCncon 08-07 Phosphate [Mass/Vol] 3.5 mg/dL Normal 2.7-4.8 [facility] Comment on above: Order Comment: Speci men Type: BLOOD SPECIMENOrdering Facility: [facility] Address: [address] [place] [address] Performed By: #### 2 4321-2, 2776-05, , [facility] ####[facility]ORATORYCLIA [id number] [address] [place] ANES POSTPROC EVALon 022 ANES POSTPROC EVAL Normal [facility] Basic metabolic 2000 panelon 08-06-2021 Anion gap [Moles/Vol] 11 mmol/L Normal 9-18 [facility] Comment on above: Order Comment: Speci men Type: BLOOD SPECIMENOrdering Facility: [facility] Address: [address] [place], [place] [address] Performed By: #### 2 4321-2, 2776-05, ####[facility]ATORYCLIA [id number] [address] [place] Calcium [Mass/Vol] 8.2 mg/dL Low 8.5-10.2 [facility] Comment on above: Order Comment: Speci men Type: BLOOD SPECIMENOrdering Facility: [facility] Address: [address] [place] [address] Performed By: #### 2 4321-2, 2776-05, ####[facility]ITALCLIA [id number] [address] [place] Chloride [Moles/Vol] 100 mmol/L Normal 97-105 [facility] Comment on above: Order Comment: Speci men Type: BLOOD SPECIMENOrdering Facility: [facility] Address: [address] [place] [address] Performed By: #### 2 4321-2, 2777-1, ####[facility]ORATORYCLIA [id number] [address] [place] [id number] [facility] CO2 [Moles/Vol] 23 mmol/L Normal 22-30 [facility] Comment on above: Order Comment: Speci men Type: BLOOD SPECIMENOrdering Facility: [facility] Address: [address] [place] [address] Performed By: #### 2 4321-2, 2777-, ####[facility]ATORYCLIA [id number] [address] Creatinine [Mass/Vol] 0.55 mg/dL Low 0.73-1.22 [facility] Comment on above: Order Comment: Speci men Type: BLOOD SPECIMENOrdering Facility: [facility] Address: [address] [place] [address] Performed By: #### 2 4321-2, 2777-, ####[facility]ATORYCLIA [id number] [address] ESTIMATED GLOMERULAR FILTRATION RATE 107 mL/min/1.73m??? Normal >=60 [facility] Comment on above: Order Comment: Speci men Type: BLOOD SPECIMENOrdering Facility: [facility] Address: [address] [place] [address] Result Comment: Luzmaria mated Glomerular Filtration Rate [...] GFR. Performed By: #### 2 4321-2, 27711-04, ####[facility]ORATORYCLIA [id number] [place] [address] [place] Glucose [Mass/Vol] 275 mg/dL High 74-99 [facility] Comment on above: Order Comment: Shira feldman Type: BLOOD SPECIMENOrdering Facility: [facility] Address: [address] [place], [place] [address] Result Comment: The [place] Diabetes Association (ADA) provides guidance for cutoff [...] Standards of Medical Care in Diabetes 2016, [place] [employer]. Diabetes Care. 2016.39(Suppl 1). Performed By: #### 2 4321-2, 2776-05, ####[facility]ORATORYCLIA [id number] [place] [address] [place] Potassium [Moles/Vol] 3.6 mmol/L Low 3.7-5.1 [facility] Comment on above: Order Comment: Shira feldman Type: BLOOD SPECIMENOrdering Facility: [facility] Address: [address] [place] [address] Performed By: #### 2 4321-2, 2776-05, ####[facility]ATORYCLIA [id number] [place] [address] [place] Sodium [Moles/Vol] 134 mmol/L Low 136-144 [facility] Comment on above: Order Comment: Shira feldman Type: BLOOD SPECIMENOrdering Facility: [facility] Address: [address] [address] Performed By: #### 2 4321-2, 2777-1, ####[facility]ORYCLIA [id number] [address] Urea nitrogen [Mass/Vol] 29 mg/dL High 9-24 [facility] Comment on above: Order Comment: Speci men Type: BLOOD SPECIMENOrdering Facility: [facility] Address: [address] [place] [address] Performed By: #### 2 4321-2, 2776-, ####[facility]ATORYCLIA [id number] [address] CBC W Auto Differential pane l (Bld)on 08-06-2021 Basophils (Bld) [#/Vol] 0.03 10*3/uL Normal <0.11 [facility] Comment on above: Order Comment: Speci men Type: BLOOD SPECIMENOrdering Facility: [facility] Address: [address] [place] [address] Performed By: #### 5 7021-8 ####[facility]ATORYCLIA [id number] [address] STATES [facility] Basophils/100 WBC (Bld) 0.3 % Normal [facility] Comment on above: Order Comment: Speci men Type: BLOOD SPECIMENOrdering Facility: [facility] Address: [address] [place] [address] Performed By: #### 5 7021-8 ####[facility]ORATORYCLIA [id number] [address] Differential cell count method Nom (Bld) Auto Normal [facility] Comment on above: Order Comment: Speci men Type: BLOOD SPECIMENOrdering Facility: [facility] Address: [address] [place] [address] Performed By: #### 5 7021-8 ####[facility]ATORYCLIA [id number] [address] [place] Eosinophils (Bld) [#/Vol] 0.18 10*3/uL Normal <0.46 [facility] Comment on above: Order Comment: Speci men Type: BLOOD SPECIMENOrdering Facility: [facility] Address: [address] [place] [address] Performed By: #### 5 7021-8 ####[facility]ATORYCLIA [id number] [address] [place] Eosinophils/100 WBC (Bld) 1.6 % Normal [facility] Comment on above: Order Comment: Speci men Type: BLOOD SPECIMENOrdering Facility: [facility] Address: [address] [place] [address] Performed By: #### 5 7021-8 ####[facility]ATORYCLIA [id number] [address] OF [place] Erythrocyte distribution width (RBC) [Ratio] 17.9 % High 11.5-15.0 [facility] Comment on above: Order Comment: Speci men Type: BLOOD SPECIMENOrdering Facility: [facility] Address: [address] [place] [address] Performed By: #### 5 7021-8 ####[facility]ORATORYCLIA [id number] [address] OF [facility] Hematocrit (Bld) [Volume fraction] 27.6 % Low 39.0-51.0 [facility] Comment on above: Order Comment: Speci men Type: BLOOD SPECIMENOrdering Facility: [facility] Address: [address] [place] [address] Performed By: #### 5 7021-8 ####[facility]ORATORYCLIA [id number] [address] OF [place] Hemoglobin (Bld) [Mass/Vol] 8.5 g/dL Low 13.0-17.0 [facility] Comment on above: Order Comment: Speci men Type: BLOOD SPECIMENOrdering Facility: [facility] Address: [address] [place] [address] Performed By: #### 5 7021-8 ####[facility]ORATORYCLIA [id number] [address] IMMATURE GRAN % 0.6 % Normal [facility] Comment on above: Order Comment: Speci men Type: BLOOD SPECIMENOrdering Facility: [facility] Address: [address] [place] [address] Performed By: #### 5 7021-8 ####[facility]ATORYCLIA [id number] [address] IMMATURE GRAN ABS 0.07 k/uL Normal <0.10 [facility] Comment on above: Order Comment: Speci men Type: BLOOD SPECIMENOrdering Facility: [facility] Address: [address] [place] [address] Performed By: #### 5 7021-8 ####[facility]ATORYCLIA [id number] [address] Lymphocytes (Bld) [#/Vol] 1.81 10*3/uL Normal 1.00-4.00 [facility] Comment on above: Order Comment: Speci men Type: BLOOD SPECIMENOrdering Facility: [facility] Address: [address] [place] [address] Performed By: #### 5 7021-8 ####[facility]ATORYCLIA [id number] [address] Lymphocytes/100 WBC (Bld) 15.7 % Normal [facility] Comment on above: Order Comment: Speci men Type: BLOOD SPECIMENOrdering Facility: [facility] Address: [address] [place] [address] Performed By: #### 5 7021-8 ####[facility]ATORYCLIA [id number] [address] MCH (RBC) [Entitic mass] 28.6 pg Normal 26.0-34.0 [facility] Comment on above: Order Comment: Speci men Type: BLOOD SPECIMENOrdering Facility: [facility] Address: [address] [place] [address] Performed By: #### 5 7021-8 ####[facility]ORATORYCLIA [id number] [address] [place] MCHC (RBC) [Mass/Vol] 30.8 g/dL Normal 30.5-36.0 [facility] Comment on above: Order Comment: Speci men Type: BLOOD SPECIMENOrdering Facility: [facility] Address: [address] [place] [address] Performed By: #### 5 7021-8 ####[facility]ATORYCLIA [id number] [address] MCV (RBC) [Entitic vol] 92.9 fL Normal 80.0-100.0 [facility] Comment on above: Order Comment: Speci men Type: BLOOD SPECIMENOrdering Facility: [facility] Address: [address] [place] [address] Performed By: #### 5 7021-8 ####[facility]ORATORYCLIA [id number] [address] STATES OF [facility] Monocytes (Bld) [#/Vol] 0.63 10*3/uL Normal <0.87 [facility] Comment on above: Order Comment: Speci men Type: BLOOD SPECIMENOrdering Facility: [facility] Address: [address] [place] [address] Performed By: #### 5 7021-8 ####[facility] LABORATORYCLIA [id number] [address] Monocytes/100 WBC (Bld) 5.5 % Normal [facility] Comment on above: Order Comment: Speci men Type: BLOOD SPECIMENOrdering Facility: [facility] Address: [address] [place] [address] Performed By: #### 5 7021-8 ####[facility] LABORATORYCLIA [id number] [address] [place] Neutrophils (Bld) [#/Vol] 8.78 10*3/uL High 1.45-7.50 [facility] Comment on above: Order Comment: Speci men Type: BLOOD SPECIMENOrdering Facility: [facility] Address: [address] [place] [address] Performed By: #### 5 7021-8 ####[facility]ORATORYCLIA [id number] [address] Neutrophils/100 WBC (Bld) 76.3 % Normal [facility] Comment on above: Order Comment: Speci men Type: BLOOD SPECIMENOrdering Facility: [facility] Address: [address] [place] [address] Performed By: #### 5 7021-8 ####[facility] LABORATORYCLIA [id number] [address] [place] Nucleated RBC (Bld) [#/Vol] 10*3/uL Normal <0.01 [facility] Comment on above: Order Comment: Speci men Type: BLOOD SPECIMENOrdering Facility: [facility] Address: [address] [place] [address] Performed By: #### 5 7021-8 ####[facility] LABORATORYCLIA [id number] [address] Nucleated RBC/100 WBC (Bld) [Ratio] 0.0 /100 WBC Normal [facility] Comment on above: Order Comment: Speci men Type: BLOOD SPECIMENOrdering Facility: [facility] Address: [address] [place] [address] Performed By: #### 5 7021-8 ####[facility] LABORATORYCLIA [id number] [address] [place] Platelet mean volume (Bld) [Entitic vol] 9.9 fL Normal 9.0-12.7 [facility] Comment on above: Order Comment: Speci men Type: BLOOD SPECIMENOrdering Facility: [facility] Address: [address] [place] [address] Performed By: #### 5 7021-8 ####[facility] LABORATORYCLIA [id number] [place] [address] [place] Platelets (Bld) [#/Vol] 230 10*3/uL Normal 150-400 [facility] Comment on above: Order Comment: Speci men Type: BLOOD SPECIMENOrdering Facility: [facility] Address: [address] [place] [address] Performed By: #### 5 7021-8 ####[facility] LABORATORYCLIA [id number] [place] [address] [place] RBC (Bld) [#/Vol] 2.97 10*6/uL Low 4.20-6.00 [facility] Comment on above: Order Comment: Speci men Type: BLOOD SPECIMENOrdering Facility: [facility] Address: [address] [place] [address] Performed By: #### 5 7021-8 ####[facility] LABORATORYCLIA [id number] [address] STATES OF [facility] WBC (Bld) [#/Vol] 11.50 10*3/uL High 3.70-11.00 [facility] Comment on above: Order Comment: Speci men Type: BLOOD SPECIMENOrdering Facility: [facility] Address: [address] [place] [address] Performed By: #### 5 7021-8 ####[facility] LABORATORYCLIA [id number] [address] [place] CONSULT PROGon 08-06-2021 CONSULT PROG Normal [facility] Magnesium SerPl-mCncon 08-06 Magnesium [Mass/Vol] 1.9 mg/dL Normal 1.7-2.3 [facility] Comment on above: Order Comment: Speci men Type: BLOOD SPECIMENOrdering Facility: [facility] Address: [address] [place] [address] Performed By: #### 2 4321-2, 2777-1, 83914-1 ####[facility] LABORATORYCLIA [id number] [place] [address] [place] NURSING PROGon 08-06-2021 NURSING PROG Normal [facility] OPERATIVE NOon 08-06-2021 OPERATIVE NO Normal [facility] Phosphate SerPl-mCncon 08-06 Phosphate [Mass/Vol] 4.2 mg/dL Normal 2.7-4.8 [facility] Comment on above: Order Comment: Speci men Type: BLOOD SPECIMENOrdering Facility: [facility] Address: [address] [place], [place] [phone] Performed By: #### 2 4321-2, 2777-1, 52961-2 ####[facility] LABORATORYCLIA [id number] [address] ALLIED HEALTHon 08-05-2021 ALLIED HEALTH Normal [facility] ALLIED HEALTH Normal [facility] ANES PRE-OPon 08-05-2021 ANES PRE-OP Normal [facility] BRIEF OP NOTon 08-05-2021 BRIEF OP NOT Normal [facility] Bacteria Spec Resp Culton Bacteria identified Respiratory culture Nom (Unsp spec) CULTURE, RESPIRATORY: Few Normal respiratory chris present ORGANISM ID: 1 Few Proteus species Insignificant colony count. No further workup. GRAM STAIN: No organisms seen Few Polymorphonuclear leukocytes Few Epithelial cells Abnormal [facility] Comment on above: Performed By: #### 3 2355-0 ####[facility] LABORATORYCLIA [id number] [address] Bacteria Ur Culton Bacteria identified Cx Nom (U) CULTURE, URINE: No growth (<1,000 CFU/ml) Normal [facility] Comment on above: Performed By: #### 6 30-4 ####[facility] LABORATORYCLIA [id number] [place] [address] [place] Basic metabolic 2000 panelon 08-05-2021 Anion gap [Moles/Vol] 7 mmol/L Low 9-18 [facility] Comment on above: Order Comment: Speci men Type: BLOOD SPECIMENOrdering Facility: [facility] Address: [address] Performed By: #### 2 4321-2 ####[facility]ORATORYCLIA [id number] [address] [place] Calcium [Mass/Vol] 9.5 mg/dL Normal 8.5-10.2 [facility] Comment on above: Order Comment: Speci men Type: BLOOD SPECIMENOrdering Facility: [facility] Address: [address] [place] [place] [address] Performed By: #### 2 4321-2 ####[facility] LABORATORYCLIA [id number] [place] [address] [place] Chloride [Moles/Vol] 97 mmol/L Normal 97-105 [facility] Comment on above: Order Comment: Speci men Type: BLOOD SPECIMENOrdering Facility: [facility] Address: [address] [place] [address] Performed By: #### 2 4321-2 ####[facility] LABORATORYCLIA [id number] [place] [address] [place] CO2 [Moles/Vol] 30 mmol/L Normal 22-30 [facility] Comment on above: Order Comment: Speci men Type: BLOOD SPECIMENOrdering Facility: [facility] Address: [address] [place] [address] Performed By: #### 2 4321-2 ####[facility]ORATORYCLIA [id number] [address] [place] Creatinine [Mass/Vol] 0.61 mg/dL Low 0.73-1.22 [facility] Comment on above: Order Comment: Speci men Type: BLOOD SPECIMENOrdering Facility: [facility] Address: [facility] [place] [address] Performed By: #### 2 4321-2 ####[facility]ORATORYCLIA [id number] [address] [place] ESTIMATED GLOMERULAR FILTRATION RATE 104 mL/min/1.73m??? Normal >=60 [facility] Comment on above: Order Comment: Shira feldman Type: BLOOD SPECIMENOrdering Facility: [facility] Address: [address] [phone] Result Comment: Luzmaria mated Glomerular Filtration Rate [...] actual GFR. Performed By: #### 2 4321-2 ####[facility] LABORATORYCLIA [id number] [place] [address] [place] Glucose [Mass/Vol] 124 mg/dL High 74-99 [facility] Comment on above: Order Comment: Shira feldman Type: BLOOD SPECIMENOrdering Facility: [facility] Address: [address] [place] [address] Result Comment: The [place] Diabetes Association (ADA) provides guidance for cutoff [...] Standards of Medical Care in Diabetes 2016, [employer]. Diabetes Care. 2016.39(Suppl 1). Performed By: #### 2 4321-2 ####[facility] LABORATORYCLIA [id number] [place] [address] [place] Potassium [Moles/Vol] 4.9 mmol/L Normal 3.7-5.1 [facility] Comment on above: Order Comment: Shira feldman Type: BLOOD SPECIMENOrdering Facility: [facility] Address: [address] [phone] Performed By: #### 2 4321-2 ####[facility]ORATORYCLIA [id number] [address] [place] Sodium [Moles/Vol] 134 mmol/L Low 136-144 [facility] Comment on above: Order Comment: Speci men Type: BLOOD SPECIMENOrdering Facility: [facility] Address: [address] [place] [address] Performed By: #### 2 4321-2 ####[facility] LABORATORYCLIA [id number] [address] [place] Urea nitrogen [Mass/Vol] 40 mg/dL High 9-24 [facility] Comment on above: Order Comment: Speci men Type: BLOOD SPECIMENOrdering Facility: [facility] Address: [address] [place] [address] Performed By: #### 2 4321-2 ####[facility]ORATORYCLIA [id number] [address] [place] CBC W Auto Differential pane l (Bld)on 08-05-2021 Basophils (Bld) [#/Vol] 0.04 10*3/uL Normal <0.11 [facility] Comment on above: Order Comment: Speci men Type: BLOOD SPECIMENOrdering Facility: [facility] Address: [address] [place] [address] Performed By: #### 5 7021-8 ####[facility]ORATORYCLIA [id number] [address] [place] Basophils/100 WBC (Bld) 0.3 % Normal [facility] Comment on above: Order Comment: Speci men Type: BLOOD SPECIMENOrdering Facility: [facility] Address: [address] [place] [address] Performed By: #### 5 7021-8 ####[facility] LABORATORYCLIA [id number] [address] STATES [facility] Differential cell count method Nom (Bld) Auto Normal [facility] Comment on above: Order Comment: Speci men Type: BLOOD SPECIMENOrdering Facility: [facility] Address: [address] [place] [place] [address] Performed By: #### 5 7021-8 ####[facility] LABORATORYCLIA [id number] [address] STATES [facility] Eosinophils (Bld) [#/Vol] 0.42 10*3/uL Normal <0.46 [facility] Comment on above: Order Comment: Speci men Type: BLOOD SPECIMENOrdering Facility: [facility] Address: [address] [place] [address] Performed By: #### 5 7021-8 ####[facility] LABORATORYCLIA [id number] [address] Eosinophils/100 WBC (Bld) 3.6 % Normal [facility] Comment on above: Order Comment: Speci men Type: BLOOD SPECIMENOrdering Facility: [facility] Address: [address] [place] [address] Performed By: #### 5 7021-8 ####[facility] LABORATORYCLIA [id number] [address] Erythrocyte distribution width (RBC) [Ratio] 17.9 % High 11.5-15.0 [facility] Comment on above: Order Comment: Speci men Type: BLOOD SPECIMENOrdering Facility: [facility] Address: [address] [place] [address] Performed By: #### 5 7021-8 ####[facility]ORATORYCLIA [id number] [address] Hematocrit (Bld) [Volume fraction] 30.8 % Low 39.0-51.0 [facility] Comment on above: Order Comment: Speci men Type: BLOOD SPECIMENOrdering Facility: [facility] Address: [address] [place] [address] Performed By: #### 5 7021-8 ####[facility] LABORATORYCLIA [id number] [address] [place] Hemoglobin (Bld) [Mass/Vol] 9.6 g/dL Low 13.0-17.0 [facility] Comment on above: Order Comment: Speci men Type: BLOOD SPECIMENOrdering Facility: [facility] Address: [address] [place] [address] Performed By: #### 5 7021-8 ####[facility]ORATORYCLIA [id number] [address] IMMATURE GRAN % 0.5 % Normal [facility] Comment on above: Order Comment: Speci men Type: BLOOD SPECIMENOrdering Facility: [facility] Address: [address] [place] [address] Performed By: #### 5 7021-8 ####[facility] LABORATORYCLIA [id number] [address] IMMATURE GRAN ABS 0.06 k/uL Normal <0.10 [facility] Comment on above: Order Comment: Speci men Type: BLOOD SPECIMENOrdering Facility: [facility] Address: [address] [place] [address] Performed By: #### 5 7021-8 ####[facility]ORATORYCLIA [id number] [address] Lymphocytes (Bld) [#/Vol] 2.17 10*3/uL Normal 1.00-4.00 [facility] Comment on above: Order Comment: Speci men Type: BLOOD SPECIMENOrdering Facility: [facility] Address: [address] [place] [address] Performed By: #### 5 7021-8 ####[facility]ORATORYCLIA [id number] [address] Lymphocytes/100 WBC (Bld) 18.7 % Normal [facility] Comment on above: Order Comment: Speci men Type: BLOOD SPECIMENOrdering Facility: [facility] Address: [address] [place] [address] Performed By: #### 5 7021-8 ####[facility]ORATORYCLIA [id number] [address] [place] MCH (RBC) [Entitic mass] 28.9 pg Normal 26.0-34.0 [facility] Comment on above: Order Comment: Speci men Type: BLOOD SPECIMENOrdering Facility: [facility] Address: [address] [place] [address] Performed By: #### 5 7021-8 ####[facility] LABORATORYCLIA [id number] [address] OF [facility] MCHC (RBC) [Mass/Vol] 31.2 g/dL Normal 30.5-36.0 [facility] Comment on above: Order Comment: Speci men Type: BLOOD SPECIMENOrdering Facility: [facility] Address: [address] [place] [address] Performed By: #### 5 7021-8 ####[facility]ORATORYCLIA [id number] [address] MCV (RBC) [Entitic vol] 92.8 fL Normal 80.0-100.0 [facility] Comment on above: Order Comment: Speci men Type: BLOOD SPECIMENOrdering Facility: [facility] Address: [address] [place] [address] Performed By: #### 5 7021-8 ####[facility]ORATORYCLIA [id number] [address] Monocytes (Bld) [#/Vol] 0.71 10*3/uL Normal <0.87 [facility] Comment on above: Order Comment: Speci men Type: BLOOD SPECIMENOrdering Facility: [facility] Address: [address] [place] [address] Performed By: #### 5 7021-8 ####[facility]ORATORYCLIA [id number] [address] Monocytes/100 WBC (Bld) 6.1 % Normal [facility] Comment on above: Order Comment: Speci men Type: BLOOD SPECIMENOrdering Facility: [facility] Address: [address] [place] [address] Performed By: #### 5 7021-8 ####[facility]ORATORYCLIA [id number] [place] [address] [place] Neutrophils (Bld) [#/Vol] 8.19 10*3/uL High 1.45-7.50 [facility] Comment on above: Order Comment: Speci men Type: BLOOD SPECIMENOrdering Facility: [facility] Address: [address] [place] [address] Performed By: #### 5 7021-8 ####[facility]ORATORYCLIA [id number] [address] STATES OF [facility] Neutrophils/100 WBC (Bld) 70.8 % Normal [facility] Comment on above: Order Comment: Speci men Type: BLOOD SPECIMENOrdering Facility: [facility] Address: [address] [place] [address] Performed By: #### 5 7021-8 ####[facility]ORATORYCLIA [id number] [address] STATES OF [facility] Nucleated RBC (Bld) [#/Vol] 10*3/uL Normal <0.01 [facility] Comment on above: Order Comment: Speci men Type: BLOOD SPECIMENOrdering Facility: [facility] Address: [address] [place] [address] Performed By: #### 5 7021-8 ####[facility]ORATORYCLIA [id number] [address] [place] Nucleated RBC/100 WBC (Bld) [Ratio] 0.0 /100 WBC Normal [facility] Comment on above: Order Comment: Speci men Type: BLOOD SPECIMENOrdering Facility: [facility] Address: [address] [place] [address] Performed By: #### 5 7021-8 ####[facility]ORATORYCLIA [id number] [address] [place] Platelet mean volume (Bld) [Entitic vol] 9.6 fL Normal 9.0-12.7 [facility] Comment on above: Order Comment: Speci men Type: BLOOD SPECIMENOrdering Facility: [facility] Address: [address] [place] [address] Performed By: #### 5 7021-8 ####[facility] LABORATORYCLIA [id number] [address] OF [facility] Platelets (Bld) [#/Vol] 339 10*3/uL Normal 150-400 [facility] Comment on above: Order Comment: Speci men Type: BLOOD SPECIMENOrdering Facility: [facility] Address: [address] [place] [address] Performed By: #### 5 7021-8 ####[facility]ORATORYCLIA [id number] [address] STATES OF [facility] RBC (Bld) [#/Vol] 3.32 10*6/uL Low 4.20-6.00 [facility] Comment on above: Order Comment: Speci men Type: BLOOD SPECIMENOrdering Facility: [facility] Address: [address] [place] [address] Performed By: #### 5 7021-8 ####[facility]ORATORYCLIA [id number] [address] STATES OF [facility] WBC (Bld) [#/Vol] 11.59 10*3/uL High 3.70-11.00 [facility] Comment on above: Order Comment: Speci men Type: BLOOD SPECIMENOrdering Facility: [facility] Address: [address] [place] [address] Performed By: #### 5 7021-8 ####[facility]ORATORYCLIA [id number] [address] [place] CT BRAIN WO IVCONon 08-06-19 CT BRAIN WO IVCON Normal [facility] Magnesium SerPl-mCncon 08-05 Magnesium [Mass/Vol] 2.2 mg/dL Normal 1.7-2.3 [facility] Comment on above: Order Comment: Speci men Type: BLOOD SPECIMENOrdering Facility: [facility] Address: [address] [place] [address] Performed By: #### 1 9123-9, 2777-1 ####[facility]ORATORYCLIA [id number] [address] OF [facility] NURSING PROGon 08-05-2021 NURSING PROG Normal [facility] NURSING PROG Normal [facility] NUTRITIONon 08-05-2021 NUTRITION Normal [facility] OPERATIVE NOon 08-05-2021 OPERATIVE NO Normal [facility] Phosphate SerPl-mCncon 08-05 Phosphate [Mass/Vol] 4.6 mg/dL Normal 2.7-4.8 [facility] Comment on above: Order Comment: Speci men Type: BLOOD SPECIMENOrdering Facility: [facility] Address: [address] [place] [address] Performed By: #### 1 9123-9, 27711-04 ####[facility]ORATORYCLIA [id number] [address] THERAPY NTon 08-05-2021 THERAPY NT Normal [facility] THERAPY NT Normal [facility] Urinalysis complete panel (U )on 08-05-2021 Bilirubin Ql (U) Negative Normal Negative [facility] Comment on above: Order Comment: Speci men Type: URINE SPECIMENOrdering Facility: [facility] Address: [address] [place] [address] Performed By: #### 2 4356-8 ####[facility]ORATORYCLIA [id number] [address] [place] Clarity (Unsp spec) Clear Normal Clear [facility] Comment on above: Order Comment: Speci men Type: URINE SPECIMENOrdering Facility: [facility] Address: [address] [place] [address] Performed By: #### 2 4356-8 ####[facility]ORATORYCLIA [id number] [address] Color (U) Light Yellow Normal yellow [facility] Comment on above: Order Comment: Speci men Type: URINE SPECIMENOrdering Facility: [facility] Address: [address] [place] [address] Performed By: #### 2 4356-8 ####[facility] LABORATORYCLIA [id number] [address] Epithelial cells LM.HPF (Urine sed) [#/Area] Few Abnormal None Seen [facility] Comment on above: Order Comment: Speci men Type: URINE SPECIMENOrdering Facility: [facility] Address: [address] [place] [address] Performed By: #### 2 4356-8 ####[facility] LABORATORYCLIA [id number] [address] Glucose Test strip (U) [Mass/Vol] Negative Normal Negative [facility] Comment on above: Order Comment: Speci men Type: URINE SPECIMENOrdering Facility: [facility] Address: [address] [place] [address] Performed By: #### 2 4356-8 ####[facility] LABORATORYCLIA [id number] [address] Hemoglobin Ql (U) Negative Normal Negative [facility] Comment on above: Order Comment: Speci men Type: URINE SPECIMENOrdering Facility: [facility] Address: [address] [place] [address] Performed By: #### 2 4356-8 ####[facility]ORATORYCLIA [id number] [address] Hyaline casts (Urine sed) [#/Area] 1-3 /LPF Abnormal 0 /LPF [facility] Comment on above: Order Comment: Speci men Type: URINE SPECIMENOrdering Facility: [facility] Address: [address] [place] [address] Performed By: #### 2 4356-8 ####[facility] LABORATORYCLIA [id number] [address] Ketones Ql (U) Negative Normal Negative [facility] Comment on above: Order Comment: Speci men Type: URINE SPECIMENOrdering Facility: [facility] Address: [address] [place] [address] Performed By: #### 2 4356-8 ####[facility]ORATORYCLIA [id number] [address] Leukocyte esterase Test strip Ql (U) Negative Normal Negative [facility] Comment on above: Order Comment: Speci men Type: URINE SPECIMENOrdering Facility: [facility] Address: [address] [place] [address] Performed By: #### 2 4356-8 ####[facility]ORATORYCLIA [id number] [address] Nitrite Ql (U) Negative Normal Negative [facility] Comment on above: Order Comment: Speci men Type: URINE SPECIMENOrdering Facility: [facility] Address: [address] [place] [address] Performed By: #### 2 4356-8 ####[facility]ORATORYCLIA [id number] [address] pH (U) 6.0 [pH] Normal 5.0-8.0 [facility] Comment on above: Order Comment: Speci men Type: URINE SPECIMENOrdering Facility: [facility] Address: [address] [place] [address] Performed By: #### 2 4356-8 ####[facility] LABORATORYCLIA [id number] [address] Protein (U) [Mass/Vol] Negative Normal Negative [facility] Comment on above: Order Comment: Speci men Type: URINE SPECIMENOrdering Facility: [facility] Address: [address] [place] [address] Performed By: #### 2 4356-8 ####[facility] LABORATORYCLIA [id number] [place] [address] [place] RBC LM.HPF (Urine sed) [#/Area] 0-3 /HPF Normal 0-3 /HPF [facility] Comment on above: Order Comment: Speci men Type: URINE SPECIMENOrdering Facility: [facility] Address: [address] [place] [address] Performed By: #### 2 4356-8 ####[facility] LABORATORYCLIA [id number] [address] [place] Specific gravity (U) [Rel density] 1.015 Normal 1.005-1.030 [facility] Comment on above: Order Comment: Speci men Type: URINE SPECIMENOrdering Facility: [facility] Address: [address] [place] [address] Performed By: #### 2 4356-8 ####[facility] LABORATORYCLIA [id number] [address] [place] Urobilinogen Ql (U) Normal Normal Negative [facility] Comment on above: Order Comment: Speci men Type: URINE SPECIMENOrdering Facility: [facility] Address: [address] [place] [address] Performed By: #### 2 4356-8 ####[facility] LABORATORYCLIA [id number] [address] [place] LM.HPF (Urine sed) [#/Area] 0-5 /HPF Normal 0-5 /HPF [facility] Comment on above: Order Comment: Speci men Type: URINE SPECIMENOrdering Facility: [facility] Address: [address] [place] [address] Performed By: #### 2 4356-8 ####[facility] LABORATORYCLIA [id number] [address] [place] XR ABDOMEN 1V SUPINEon 08-05 XR ABDOMEN 1V SUPINE Normal [facility] XR CHEST 1V FRONTALon 2021 XR CHEST 1V FRONTAL Normal [facility] XR CHEST 1V FRONTAL Normal [facility] XR NECK SOFT TISSUE 2V AP/LA Ton 08-05-2021 XR NECK SOFT TISSUE 2V AP/LAT Normal [facility] XR SKULL 2V AP/LATon 022 XR SKULL 2V AP/LAT Normal [facility] ALLIED HEALTHon 08-04-2021 ALLIED HEALTH Normal [facility] Bacteria Bld Culton 08-05-19 22 Bacteria identified Cx Nom (Bld) CULTURE, BLOOD: No growth 5 days Normal [facility] Comment on above: Performed By: #### 6 00-7 ####[facility] LABORATORYCLIA [id number] [address] STATES OF [facility] Bacteria identified Cx Nom (Bld) CULTURE, BLOOD: No growth 5 days Normal [facility] Comment on above: Performed By: #### 6 00-7 ####[facility] LABORATORYCLIA [id number] [address] [place] CBC W Auto Differential pane l (Bld)on 08-04-2021 Basophils (Bld) [#/Vol] 0.05 10*3/uL Normal <0.11 [facility] Comment on above: Order Comment: Speci men Type: BLOOD SPECIMENOrdering Facility: [facility] Address: [address] [place] [address] Performed By: #### 5 7021-8 ####[facility] LABORATORYCLIA [id number] [address] [place] Basophils/100 WBC (Bld) 0.4 % Normal [facility] Comment on above: Order Comment: Speci men Type: BLOOD SPECIMENOrdering Facility: [facility] Address: [address] [place] [address] Performed By: #### 5 7021-8 ####[facility] LABORATORYCLIA [id number] [address] STATES [facility] Differential cell count method Nom (Bld) Auto Normal [facility] Comment on above: Order Comment: Speci men Type: BLOOD SPECIMENOrdering Facility: [facility] Address: [address] [place] [address] Performed By: #### 5 7021-8 ####[facility] LABORATORYCLIA [id number] [address] [place] Eosinophils (Bld) [#/Vol] 0.21 10*3/uL Normal <0.46 [facility] Comment on above: Order Comment: Speci men Type: BLOOD SPECIMENOrdering Facility: [facility] Address: [address] [place] [address] Performed By: #### 5 7021-8 ####[facility] LABORATORYCLIA [id number] [address] [place] Eosinophils/100 WBC (Bld) 1.7 % Normal [facility] Comment on above: Order Comment: Speci men Type: BLOOD SPECIMENOrdering Facility: [facility] Address: [address] [place] [address] Performed By: #### 5 7021-8 ####[facility] LABORATORYCLIA [id number] [address] Erythrocyte distribution width (RBC) [Ratio] 18.1 % High 11.5-15.0 [facility] Comment on above: Order Comment: Speci men Type: BLOOD SPECIMENOrdering Facility: [facility] Address: [address] [place] [address] Performed By: #### 5 7021-8 ####[facility] LABORATORYCLIA [id number] [address] OF [place] Hematocrit (Bld) [Volume fraction] 32.0 % Low 39.0-51.0 [facility] Comment on above: Order Comment: Speci men Type: BLOOD SPECIMENOrdering Facility: [facility] Address: [address] [address] Performed By: #### 5 7021-8 ####[facility] LABORATORYCLIA [id number] [address] [place] Hemoglobin (Bld) [Mass/Vol] 10.0 g/dL Low 13.0-17.0 [facility] Comment on above: Order Comment: Speci men Type: BLOOD SPECIMENOrdering Facility: [facility] Address: [address] [place] [address] Performed By: #### 5 7021-8 ####[facility] LABORATORYCLIA [id number] [address] IMMATURE GRAN % 0.6 % Normal [facility] Comment on above: Order Comment: Speci men Type: BLOOD SPECIMENOrdering Facility: [facility] Address: [address] [place] [address] Performed By: #### 5 7021-8 ####[facility] LABORATORYCLIA [id number] [address] IMMATURE GRAN ABS 0.08 k/uL Normal <0.10 [facility] Comment on above: Order Comment: Speci men Type: BLOOD SPECIMENOrdering Facility: [facility] Address: [address] [place] [address] Performed By: #### 5 7021-8 ####[facility] LABORATORYCLIA [id number] [address] Lymphocytes (Bld) [#/Vol] 2.55 10*3/uL Normal 1.00-4.00 [facility] Comment on above: Order Comment: Speci men Type: BLOOD SPECIMENOrdering Facility: [facility] Address: [address] [place] [address] Performed By: #### 5 7021-8 ####[facility] LABORATORYCLIA [id number] [address] Lymphocytes/100 WBC (Bld) 20.5 % Normal [facility] Comment on above: Order Comment: Speci men Type: BLOOD SPECIMENOrdering Facility: [facility] Address: [address] [place] [address] Performed By: #### 5 7021-8 ####[facility] LABORATORYCLIA [id number] [address] MCH (RBC) [Entitic mass] 28.9 pg Normal 26.0-34.0 [facility] Comment on above: Order Comment: Speci men Type: BLOOD SPECIMENOrdering Facility: [facility] Address: [address] [place] [address] Performed By: #### 5 7021-8 ####[facility] LABORATORYCLIA [id number] [address] MCHC (RBC) [Mass/Vol] 31.3 g/dL Normal 30.5-36.0 [facility] Comment on above: Order Comment: Speci men Type: BLOOD SPECIMENOrdering Facility: [facility] Address: [address] [place] [address] Performed By: #### 5 7021-8 ####[facility] LABORATORYCLIA [id number] [address] MCV (RBC) [Entitic vol] 92.5 fL Normal 80.0-100.0 [facility] Comment on above: Order Comment: Speci men Type: BLOOD SPECIMENOrdering Facility: [facility] Address: [address] [place] [address] Performed By: #### 5 7021-8 ####[facility] LABORATORYCLIA [id number] [address] Monocytes (Bld) [#/Vol] 0.85 10*3/uL Normal <0.87 [facility] Comment on above: Order Comment: Speci men Type: BLOOD SPECIMENOrdering Facility: [facility] Address: [address] [place] [address] Performed By: #### 5 7021-8 ####[facility] LABORATORYCLIA [id number] [address] Monocytes/100 WBC (Bld) 6.8 % Normal [facility] Comment on above: Order Comment: Speci men Type: BLOOD SPECIMENOrdering Facility: [facility] Address: [address] [place] [address] Performed By: #### 5 7021-8 ####[facility] LABORATORYCLIA [id number] [address] [place] Neutrophils (Bld) [#/Vol] 8.68 10*3/uL High 1.45-7.50 [facility] Comment on above: Order Comment: Speci men Type: BLOOD SPECIMENOrdering Facility: [facility] Address: [address] [place] [address] Performed By: #### 5 7021-8 ####[facility] LABORATORYCLIA [id number] [address] [place] Neutrophils/100 WBC (Bld) 70.0 % Normal [facility] Comment on above: Order Comment: Speci men Type: BLOOD SPECIMENOrdering Facility: [facility] Address: [address] [place] [address] Performed By: #### 5 7021-8 ####[facility] LABORATORYCLIA [id number] [address] [place] Nucleated RBC (Bld) [#/Vol] 10*3/uL Normal <0.01 [facility] Comment on above: Order Comment: Speci men Type: BLOOD SPECIMENOrdering Facility: [facility] Address: [address] [place] [address] Performed By: #### 5 7021-8 ####[facility] LABORATORYCLIA [id number] [address] [place] Nucleated RBC/100 WBC (Bld) [Ratio] 0.0 /100 WBC Normal [facility] Comment on above: Order Comment: Speci men Type: BLOOD SPECIMENOrdering Facility: [facility] Address: [address] [place] [address] Performed By: #### 5 7021-8 ####[facility] LABORATORYCLIA [id number] [place] [address] [place] Platelet mean volume (Bld) [Entitic vol] 10.0 fL Normal 9.0-12.7 [facility] Comment on above: Order Comment: Speci men Type: BLOOD SPECIMENOrdering Facility: [facility] Address: [address] [place] [address] Performed By: #### 5 7021-8 ####[facility] LABORATORYCLIA [id number] [address] OF [facility] Platelets (Bld) [#/Vol] 393 10*3/uL Normal 150-400 [facility] Comment on above: Order Comment: Speci men Type: BLOOD SPECIMENOrdering Facility: [facility] Address: [address] [place] [address] Performed By: #### 5 7021-8 ####[facility] LABORATORYCLIA [id number] [address] STATES OF [facility] RBC (Bld) [#/Vol] 3.46 10*6/uL Low 4.20-6.00 [facility] Comment on above: Order Comment: Speci men Type: BLOOD SPECIMENOrdering Facility: [facility] Address: [address] [place] [address] Performed By: #### 5 7021-8 ####[facility] LABORATORYCLIA [id number] [address] WBC (Bld) [#/Vol] 12.42 10*3/uL High 3.70-11.00 [facility] Comment on above: Order Comment: Speci men Type: BLOOD SPECIMENOrdering Facility: [facility] Address: [address] [place] [address] Performed By: #### 5 7021-8 ####[facility] LABORATORYCLIA [id number] [address] OF [place] CT BRAIN WO IVCONon 08-05-19 CT BRAIN WO IVCON Normal [facility] Lactate (Bld) [Moles/Vol]on 08-04-2021 Lactate [Moles/Vol] 1.4 mmol/L Normal 0.5-2.2 [facility] Comment on above: Order Comment: Speci men Type: BLOOD SPECIMENOrdering Facility: [facility] Address: [address] [place] [address] Performed By: #### 3 2693-4 ####[facility] LABORATORYCLIA [id number] [address] STATES [facility] PROCALCITONIN (LAB)on 2021 Procalcitonin [Mass/Vol] 0.08 ng/mL Normal <0.09 [facility] Comment on above: Order Comment: Speci men Type: BLOOD SPECIMENOrdering Facility: [facility] Address: [address] [place] [address] Result Comment: For a guided interpretation of test results, please visit the Change in Procalcitonin Calculator, [email or web address]. Performed By: #### P ROCAL ####[facility] LABORATORYIA [id number] [address] Prealbumin [Mass/Vol]on 07-07 Prealbumin Nephelometry [Mass/Vol] 35 mg/dL Normal 17-36 [facility] Comment on above: Order Comment: Speci [facility] Type: BLOOD SPECIMENOrdering Facility: [facility] Address: [address] [place] [address] Performed By: #### 1 4338-8 ####[facility] LABORATORYIA [id number] [address] SARS-CoV-2 RNA Resp Ql MEGAN+p robeon 08-04-2021 SARS-CoV-2 (COVID-19) RNA MEGAN+probe Ql (Resp) COVID 19 RESULT: SARS-CoV-2 (Agent of COVID-19) Not Detected by RT-PCR or equivalent method. This test has been authorized by FDA under an Emergency Use Authorization (EUA). Normal [facility] Comment on above: Performed By: #### 9 4500-6 ####[facility] LABORATORYCLIA [id number] [address] [place] TYPE AND SCREENon 08-04-2021 ABO O Normal [facility] Comment on above: Order Comment: Speci men Type: BLOOD SPECIMENOrdering Facility: [facility] Address: [address] [place] [address] Performed By: #### T SCR ####[facility] BLOOD BANKCLIA [id number] [address] HISTORICAL AB SCR STATUS Negative Normal [facility] Comment on above: Order Comment: Speci men Type: BLOOD SPECIMENOrdering Facility: [facility] Address: [address] [place] [address] Performed By: #### T SCR ####[facility] BLOOD BANKCLIA [id number] [address] Rh Nom (Bld) Positive Normal [facility] Comment on above: Order Comment: Speci men Type: BLOOD SPECIMENOrdering Facility: [facility] Address: [address] [place] [address] Performed By: #### T SCR ####[facility] BLOOD BANKCLIA [id number] [address] TYPE AND SCREEN EXPIRATION 08/07/2021 23:59 Normal [facility] Comment on above: Order Comment: Speci men Type: BLOOD SPECIMENOrdering Facility: [facility] Address: [address] [place] [address] Performed By: #### T SCR ####[facility] BLOOD BANKCLIA [id number] [address] aPTT PPPon 08-04-2021 aPTT Coag (PPP) [Time] 51.8 s High 23.0-32.4 [facility] Comment on above: Order Comment: Speci men Type: BLOOD SPECIMENOrdering Facility: [facility] Address: [address] [place] [address] Performed By: #### 1 4979-9 ####[facility] LABORATORYCLIA [id number] [address] Basic metabolic 2000 panelon 08-03-2021 Anion gap [Moles/Vol] 9 mmol/L Normal 9-18 [facility] Comment on above: Order Comment: Speci men Type: BLOOD SPECIMENOrdering Facility: [facility] Address: [address] [place] [address] Performed By: #### 2 4321-2, , 2776-05 ####[facility] LABORATORYCLIA [id number] [place] [address] [place] Calcium [Mass/Vol] 9.3 mg/dL Normal 8.5-10.2 [facility] Comment on above: Order Comment: Speci men Type: BLOOD SPECIMENOrdering Facility: [facility] Address: [address] [place] [address] Performed By: #### 2 4321-2, , 2776-05 ####[facility] LABORATORYCLIA [id number] [place] [address] [place] Chloride [Moles/Vol] 97 mmol/L Normal 97-105 [facility] Comment on above: Order Comment: Speci men Type: BLOOD SPECIMENOrdering Facility: [facility] Address: [address] [place] [address] Performed By: #### 2 4321-2, , 2776-05 ####[facility] LABORATORYCLIA [id number] [place] [address] [place] CO2 [Moles/Vol] 27 mmol/L Normal 22-30 [facility] Comment on above: Order Comment: Speci men Type: BLOOD SPECIMENOrdering Facility: [facility] Address: [address] [place] [address] Performed By: #### 2 4321-2, , 2776-05 ####[facility] LABORATORYCLIA [id number] [place] [address] [place] Creatinine [Mass/Vol] 0.63 mg/dL Low 0.73-1.22 [facility] Comment on above: Order Comment: Speci men Type: BLOOD SPECIMENOrdering Facility: [facility] Address: [address] [place] [address] Performed By: #### 2 4321-2, , 2776-05 ####[facility] LABORATORYCLIA [id number] [place] [address] [place] ESTIMATED GLOMERULAR FILTRATION RATE 103 mL/min/1.73m??? Normal >=60 [facility] Comment on above: Order Comment: Shira feldman Type: BLOOD SPECIMENOrdering Facility: [facility] Address: [address] [place], [place] [address] Result Comment: Luzmaria mated Glomerular Filtration Rate [...] actual GFR. Performed By: #### 2 4321-2, 75981-9, 2776-05 ####[facility]ITALCLIA [id number] [place] [id number] [place] Glucose [Mass/Vol] 136 mg/dL High 74-99 [facility] Comment on above: Order Comment: Shira feldman Type: BLOOD SPECIMENOrdering Facility: [facility] Address: [address] [place] [address] Result Comment: The [place] Diabetes Association (ADA) provides guidance for cutoff [...] Standards of Medical Care in Diabetes 2016, [employer] Diabetes Association. Diabetes Care. 2016.39(Suppl 1). Performed By: #### 2 4321-2, 90510-8, 2776-05 ####[facility] LABORATORYCLIA [id number] [place] [address] [place] Potassium [Moles/Vol] 4.1 mmol/L Normal 3.7-5.1 [facility] Comment on above: Order Comment: Speci men Type: BLOOD SPECIMENOrdering Facility: [facility] Address: [address] [place] [address] Performed By: #### 2 4321-2, , 2776-05 ####[facility] LABORATORYCLIA [id number] [place] [address] [place] Sodium [Moles/Vol] 133 mmol/L Low 136-144 [facility] Comment on above: Order Comment: Speci men Type: BLOOD SPECIMENOrdering Facility: [facility] Address: [address] [place] [address] Performed By: #### 2 4321-2, , 2776-05 ####[facility] LABORATORYCLIA [id number] [address] [place] Urea nitrogen [Mass/Vol] 40 mg/dL High 9-24 [facility] Comment on above: Order Comment: Speci men Type: BLOOD SPECIMENOrdering Facility: [facility] Address: [address] [place] [address] Performed By: #### 2 4321-2, , 2776-05 ####[facility] LABORATORYCLIA [id number] [address] [place] CASE MANAGEMon 08-03-2021 CASE MANAGEM Normal [facility] CBC W Auto Differential pane l (Bld)on 08-03-2021 Basophils (Bld) [#/Vol] 0.06 10*3/uL Normal <0.11 [facility] Comment on above: Order Comment: Speci men Type: BLOOD SPECIMENOrdering Facility: [facility] Address: [address] [place] [address] Performed By: #### 5 7021-8 ####[facility] LABORATORYCLIA [id number] [address] [place] Basophils/100 WBC (Bld) 0.5 % Normal [facility] Comment on above: Order Comment: Speci men Type: BLOOD SPECIMENOrdering Facility: [facility] Address: [address] [place] [address] Performed By: #### 5 7021-8 ####[facility] LABORATORYCLIA [id number] [address] Differential cell count method Nom (Bld) Auto Normal [facility] Comment on above: Order Comment: Speci men Type: BLOOD SPECIMENOrdering Facility: [facility] Address: [address] [place] [address] Performed By: #### 5 7021-8 ####[facility] LABORATORYCLIA [id number] [address] Eosinophils (Bld) [#/Vol] 0.23 10*3/uL Normal <0.46 [facility] Comment on above: Order Comment: Speci men Type: BLOOD SPECIMENOrdering Facility: [facility] Address: [address] [place] [address] Performed By: #### 5 7021-8 ####[facility] LABORATORYCLIA [id number] [address] Eosinophils/100 WBC (Bld) 1.8 % Normal [facility] Comment on above: Order Comment: Speci men Type: BLOOD SPECIMENOrdering Facility: [facility] Address: [address] [place] [address] Performed By: #### 5 7021-8 ####[facility] LABORATORYCLIA [id number] [address] Erythrocyte distribution width (RBC) [Ratio] 17.6 % High 11.5-15.0 [facility] Comment on above: Order Comment: Speci men Type: BLOOD SPECIMENOrdering Facility: [facility] Address: [address] [place] [address] Performed By: #### 5 7021-8 ####[facility] LABORATORYCLIA [id number] [address] Hematocrit (Bld) [Volume fraction] 30.7 % Low 39.0-51.0 [facility] Comment on above: Order Comment: Speci men Type: BLOOD SPECIMENOrdering Facility: [facility] Address: [address] [place] [address] Performed By: #### 5 7021-8 ####[facility] LABORATORYCLIA [id number] [address] STATES OF [facility] Hemoglobin (Bld) [Mass/Vol] 9.3 g/dL Low 13.0-17.0 [facility] Comment on above: Order Comment: Speci men Type: BLOOD SPECIMENOrdering Facility: [facility] Address: [address] [place] [address] Performed By: #### 5 7021-8 ####[facility] LABORATORYCLIA [id number] [address] IMMATURE GRAN % 0.6 % Normal [facility] Comment on above: Order Comment: Speci men Type: BLOOD SPECIMENOrdering Facility: [facility] Address: [address] [place] [address] Performed By: #### 5 7021-8 ####[facility] LABORATORYCLIA [id number] [address] IMMATURE GRAN ABS 0.08 k/uL Normal <0.10 [facility] Comment on above: Order Comment: Speci men Type: BLOOD SPECIMENOrdering Facility: [facility] Address: [address] [place] [address] Performed By: #### 5 7021-8 ####[facility] LABORATORYCLIA [id number] [address] [place] Lymphocytes (Bld) [#/Vol] 2.45 10*3/uL Normal 1.00-4.00 [facility] Comment on above: Order Comment: Speci men Type: BLOOD SPECIMENOrdering Facility: [facility] Address: [address] [place] [address] Performed By: #### 5 7021-8 ####[facility]ORATORYCLIA [id number] [address] Lymphocytes/100 WBC (Bld) 19.7 % Normal [facility] Comment on above: Order Comment: Speci men Type: BLOOD SPECIMENOrdering Facility: [facility] Address: [address] [place] [address] Performed By: #### 5 7021-8 ####[facility] LABORATORYCLIA [id number] [address] MCH (RBC) [Entitic mass] 28.2 pg Normal 26.0-34.0 [facility] Comment on above: Order Comment: Speci men Type: BLOOD SPECIMENOrdering Facility: [facility] Address: [address] [place] [address] Performed By: #### 5 7021-8 ####[facility] LABORATORYCLIA [id number] [address] MCHC (RBC) [Mass/Vol] 30.3 g/dL Low 30.5-36.0 [facility] Comment on above: Order Comment: Speci men Type: BLOOD SPECIMENOrdering Facility: [facility] Address: [address] [place] [address] Performed By: #### 5 7021-8 ####[facility] LABORATORYCLIA [id number] [address] OF [facility] MCV (RBC) [Entitic vol] 93.0 fL Normal 80.0-100.0 [facility] Comment on above: Order Comment: Speci men Type: BLOOD SPECIMENOrdering Facility: [facility] Address: [address] [place] [address] Performed By: #### 5 7021-8 ####[facility] LABORATORYCLIA [id number] [address] Monocytes (Bld) [#/Vol] 0.72 10*3/uL Normal <0.87 [facility] Comment on above: Order Comment: Speci men Type: BLOOD SPECIMENOrdering Facility: [facility] Address: [address] [place] [address] Performed By: #### 5 7021-8 ####[facility] LABORATORYCLIA [id number] [address] [place] Monocytes/100 WBC (Bld) 5.8 % Normal [facility] Comment on above: Order Comment: Speci men Type: BLOOD SPECIMENOrdering Facility: [facility] Address: [address] [place] [address] Performed By: #### 5 7021-8 ####[facility] LABORATORYCLIA [id number] [place] [address] [place] Neutrophils (Bld) [#/Vol] 8.92 10*3/uL High 1.45-7.50 [facility] Comment on above: Order Comment: Speci men Type: BLOOD SPECIMENOrdering Facility: [facility] Address: [address] [place] [address] Performed By: #### 5 7021-8 ####[facility] LABORATORYCLIA [id number] [address] [place] Neutrophils/100 WBC (Bld) 71.6 % Normal [facility] Comment on above: Order Comment: Speci men Type: BLOOD SPECIMENOrdering Facility: [facility] Address: [address] [place] [address] Performed By: #### 5 7021-8 ####[facility] LABORATORYCLIA [id number] [place] [address] [place] Nucleated RBC (Bld) [#/Vol] 10*3/uL Normal <0.01 [facility] Comment on above: Order Comment: Speci men Type: BLOOD SPECIMENOrdering Facility: [facility] Address: [address] [place] [address] Performed By: #### 5 7021-8 ####[facility]ATORYCLIA [id number] [address] [place] Nucleated RBC/100 WBC (Bld) [Ratio] 0.0 /100 WBC Normal [facility] Comment on above: Order Comment: Speci men Type: BLOOD SPECIMENOrdering Facility: [facility] Address: [address] [place] [address] Performed By: #### 5 7021-8 ####[facility] LABORATORYCLIA [id number] [address] [place] Platelet mean volume (Bld) [Entitic vol] 10.2 fL Normal 9.0-12.7 [facility] Comment on above: Order Comment: Speci men Type: BLOOD SPECIMENOrdering Facility: [facility] Address: [address] [place] [address] Performed By: #### 5 7021-8 ####[facility] LABORATORYCLIA [id number] [address] [place] Platelets (Bld) [#/Vol] 352 10*3/uL Normal 150-400 [facility] Comment on above: Order Comment: Speci men Type: BLOOD SPECIMENOrdering Facility: [facility] Address: [address] [place] [address] Performed By: #### 5 7021-8 ####[facility] LABORATORYCLIA [id number] [address] [place] RBC (Bld) [#/Vol] 3.30 10*6/uL Low 4.20-6.00 [facility] Comment on above: Order Comment: Speci men Type: BLOOD SPECIMENOrdering Facility: [facility] Address: [address] [place], [place] [address] Performed By: #### 5 7021-8 ####[facility] LABORATORYCLIA [id number] [address] [place] WBC (Bld) [#/Vol] 12.46 10*3/uL High 3.70-11.00 [facility] Comment on above: Order Comment: Speci men Type: BLOOD SPECIMENOrdering Facility: [facility] Address: [address] [place] [address] Performed By: #### 5 7021-8 ####[facility] LABORATORYCLIA [id number] [address] CONSULT PROGon 08-03-2021 CONSULT PROG Normal [facility] Magnesium SerPl-mCncon 08-03 Magnesium [Mass/Vol] 2.2 mg/dL Normal 1.7-2.3 [facility] Comment on above: Order Comment: Speci men Type: BLOOD SPECIMENOrdering Facility: [facility] Address: [address] [place] [address] Performed By: #### 2 4321-2, 33624-6, 2777-1 ####[facility]ORATORYCLIA [id number] [address] NURSING PROGon 08-03-2021 NURSING PROG Normal [facility] Phosphate SerPl-ncon 08-03 Phosphate [Mass/Vol] 4.2 mg/dL Normal 2.7-4.8 [facility] Comment on above: Order Comment: Speci men Type: BLOOD SPECIMENOrdering Facility: [facility] Address: [address] [place] [address] Performed By: #### 2 4321-2, 65251-8, 2777-1 ####[facility]ITALCLIA [id number] [address] aPTT PPPon 08-03-2021 aPTT Coag (PPP) [Time] 50.0 s High 23.0-32.4 [facility] Comment on above: Order Comment: Speci men Type: BLOOD SPECIMENOrdering Facility: [facility] Address: [address] [place] [address] Performed By: #### 1 4979-9 ####[facility]ORATORYCLIA [id number] [address] CBC W Auto Differential pane l (Bld)on 08-02-2021 Basophils (Bld) [#/Vol] 10*3/uL Normal <0.11 [facility] Comment on above: Order Comment: Speci men Type: BLOOD SPECIMENOrdering Facility: [facility] Address: [address] [place] [address] Performed By: #### 5 7021-8 ####[facility]ORYCLIA [id number] [address] Basophils/100 WBC (Bld) 0.2 % Normal [facility] Comment on above: Order Comment: Speci men Type: BLOOD SPECIMENOrdering Facility: [facility] Address: [address] [place] [address] Performed By: #### 5 7021-8 ####[facility]ORATORYCLIA [id number] [address] Differential cell count method Nom (Bld) Auto Normal [facility] Comment on above: Order Comment: Speci men Type: BLOOD SPECIMENOrdering Facility: [facility] Address: [address] [place] [address] Performed By: #### 5 7021-8 ####[facility]ATORYCLIA [id number] [address] [place] Eosinophils (Bld) [#/Vol] 10*3/uL Normal <0.46 [facility] Comment on above: Order Comment: Speci men Type: BLOOD SPECIMENOrdering Facility: [facility] Address: [address] [place] [address] Performed By: #### 5 7021-8 ####[facility]ATORYCLIA [id number] [address] [place] Eosinophils/100 WBC (Bld) 0.0 % Normal [facility] Comment on above: Order Comment: Speci men Type: BLOOD SPECIMENOrdering Facility: [facility] Address: [address] [place] [address] Performed By: #### 5 7021-8 ####[facility]ORYCLIA [id number] [address] [place] Erythrocyte distribution width (RBC) [Ratio] 17.3 % High 11.5-15.0 [facility] Comment on above: Order Comment: Speci men Type: BLOOD SPECIMENOrdering Facility: [facility] Address: [address] [place] [address] Performed By: #### 5 7021-8 ####[facility] LABORATORYCLIA [id number] [address] Hematocrit (Bld) [Volume fraction] 30.8 % Low 39.0-51.0 [facility] Comment on above: Order Comment: Speci men Type: BLOOD SPECIMENOrdering Facility: [facility] Address: [address] [place] [address] Performed By: #### 5 7021-8 ####[facility]ORATORYCLIA [id number] [address] Hemoglobin (Bld) [Mass/Vol] 9.7 g/dL Low 13.0-17.0 [facility] Comment on above: Order Comment: Speci men Type: BLOOD SPECIMENOrdering Facility: [facility] Address: [address] [place] [address] Performed By: #### 5 7021-8 ####[facility]ORATORYCLIA [id number] [address] IMMATURE GRAN % 0.5 % Normal [facility] Comment on above: Order Comment: Speci men Type: BLOOD SPECIMENOrdering Facility: [facility] Address: [address] [place] [address] Performed By: #### 5 7021-8 ####[facility] LABORATORYCLIA [id number] [address] IMMATURE GRAN ABS 0.07 k/uL Normal <0.10 [facility] Comment on above: Order Comment: Speci men Type: BLOOD SPECIMENOrdering Facility: [facility] Address: [address] [place] [address] Performed By: #### 5 7021-8 ####[facility] LABORATORYCLIA [id number] [place] [address] [place] Lymphocytes (Bld) [#/Vol] 1.60 10*3/uL Normal 1.00-4.00 [facility] Comment on above: Order Comment: Speci men Type: BLOOD SPECIMENOrdering Facility: [facility] Address: [address] [place] [address] Performed By: #### 5 7021-8 ####[facility]ORATORYCLIA [id number] [address] OF [facility] Lymphocytes/100 WBC (Bld) 12.1 % Normal [facility] Comment on above: Order Comment: Speci men Type: BLOOD SPECIMENOrdering Facility: [facility] Address: [address] [place] [address] Performed By: #### 5 7021-8 ####[facility]ORATORYCLIA [id number] [address] [place] MCH (RBC) [Entitic mass] 28.6 pg Normal 26.0-34.0 [facility] Comment on above: Order Comment: Speci men Type: BLOOD SPECIMENOrdering Facility: [facility] Address: [address] [place] [address] Performed By: #### 5 7021-8 ####[facility]ORATORYCLIA [id number] [address] [place] MCHC (RBC) [Mass/Vol] 31.5 g/dL Normal 30.5-36.0 [facility] Comment on above: Order Comment: Speci men Type: BLOOD SPECIMENOrdering Facility: [facility] Address: [address] [place] [address] Performed By: #### 5 7021-8 ####[facility]ORATORYCLIA [id number] [address] STATES [facility] MCV (RBC) [Entitic vol] 90.9 fL Normal 80.0-100.0 [facility] Comment on above: Order Comment: Speci men Type: BLOOD SPECIMENOrdering Facility: [facility] Address: [address] [place] [address] Performed By: #### 5 7021-8 ####[facility]ORYCLIA [id number] [address] [place] Monocytes (Bld) [#/Vol] 0.39 10*3/uL Normal <0.87 [facility] Comment on above: Order Comment: Speci men Type: BLOOD SPECIMENOrdering Facility: [facility] Address: [address] [place] [address] Performed By: #### 5 7021-8 ####[facility]ATORYCLIA [id number] [address] [place] Monocytes/100 WBC (Bld) 3.0 % Normal [facility] Comment on above: Order Comment: Speci men Type: BLOOD SPECIMENOrdering Facility: [facility] Address: [address] [place] [address] Performed By: #### 5 7021-8 ####[facility]ORATORYCLIA [id number] [address] [place] Neutrophils (Bld) [#/Vol] 11.09 10*3/uL High 1.45-7.50 [facility] Comment on above: Order Comment: Speci men Type: BLOOD SPECIMENOrdering Facility: [facility] Address: [address] [place] [address] Performed By: #### 5 7021-8 ####[facility]ORYCLIA [id number] [address] [place] Neutrophils/100 WBC (Bld) 84.2 % Normal [facility] Comment on above: Order Comment: Speci men Type: BLOOD SPECIMENOrdering Facility: [facility] Address: [address] [place] [address] Performed By: #### 5 7021-8 ####[facility]ORATORYCLIA [id number] [place] [address] [place] Nucleated RBC (Bld) [#/Vol] 10*3/uL Normal <0.01 [facility] Comment on above: Order Comment: Speci men Type: BLOOD SPECIMENOrdering Facility: [facility] Address: [facility] [place] [address] Performed By: #### 5 7021-8 ####[facility]ORATORYCLIA [id number] [address] [place] Nucleated RBC/100 WBC (Bld) [Ratio] 0.0 /100 WBC Normal [facility] Comment on above: Order Comment: Speci men Type: BLOOD SPECIMENOrdering Facility: [facility] Address: [address] [place] [address] Performed By: #### 5 7021-8 ####[facility]ATORYCLIA [id number] [address] [place] Platelet mean volume (Bld) [Entitic vol] 10.0 fL Normal 9.0-12.7 [facility] Comment on above: Order Comment: Speci men Type: BLOOD SPECIMENOrdering Facility: [facility] Address: [address] [place] [address] Performed By: #### 5 7021-8 ####[facility]ORATORYCLIA [id number] [address] [place] Platelets (Bld) [#/Vol] 358 10*3/uL Normal 150-400 [facility] Comment on above: Order Comment: Speci men Type: BLOOD SPECIMENOrdering Facility: [facility] Address: [address] Performed By: #### 5 7021-8 ####[facility]ORATORYCLIA [id number] [address] [place] RBC (Bld) [#/Vol] 3.39 10*6/uL Low 4.20-6.00 [facility] Comment on above: Order Comment: Speci men Type: BLOOD SPECIMENOrdering Facility: [facility] Address: [address] [place] [address] Performed By: #### 5 7021-8 ####[facility]ORATORYCLIA [id number] [place] [address] [place] WBC (Bld) [#/Vol] 13.17 10*3/uL High 3.70-11.00 [facility] Comment on above: Order Comment: Speci men Type: BLOOD SPECIMENOrdering Facility: [facility] Address: [address] [place] [address] Performed By: #### 5 7021-8 ####[facility]ORATORYCLIA [id number] [address] [place] NURSING PROGon 08-02-2021 NURSING PROG Normal [facility] THERAPY NTon 08-02-2021 THERAPY NT Normal [facility] aPTT PPPon 08-02-2021 aPTT Coag (PPP) [Time] 54.9 s High 23.0-32.4 [facility] Comment on above: Order Comment: Speci men Type: BLOOD SPECIMENOrdering Facility: [facility] Address: [address] [place] [address] Performed By: #### 1 4979-9 ####[facility]ORATORYCLIA [id number] [place] [address] [place] ALLIED HEALTHon 08-01-2021 ALLIED HEALTH Normal [facility] ALLIED HEALTH Normal [facility] Basic metabolic 2000 panelon 08-01-2021 Anion gap [Moles/Vol] 12 mmol/L Normal 9-18 [facility] Comment on above: Order Comment: Speci men Type: BLOOD SPECIMENOrdering Facility: [facility] Address: [address] [place] [address] Performed By: #### 2 4321-2, 41553-8, 42344-1, 2777-1 ####[facility]ORATORYCLIA [id number] [address] [place] Calcium [Mass/Vol] 9.1 mg/dL Normal 8.5-10.2 [facility] Comment on above: Order Comment: Speci men Type: BLOOD SPECIMENOrdering Facility: [facility] Address: [address] [place] [address] Performed By: #### 2 4321-2, 18482-4, 77127-5, 2777-1 ####[facility]ORATORYCLIA [id number] [place] [address] [place] Chloride [Moles/Vol] 96 mmol/L Low 97-105 [facility] Comment on above: Order Comment: Speci men Type: BLOOD SPECIMENOrdering Facility: [facility] Address: [address] [place] [address] Performed By: #### 2 4321-2, 39703-9, 59409-9, 2777-1 ####[facility]ATORYCLIA [id number] [address] [place] CO2 [Moles/Vol] 27 mmol/L Normal 22-30 [facility] Comment on above: Order Comment: Speci men Type: BLOOD SPECIMENOrdering Facility: [facility] Address: [address] [place] [address] Performed By: #### 2 4321-2, 84020-3, 39152-7, 2777-1 ####[facility]PITALCLIA [id number] [address] STATES OF [facility] Creatinine [Mass/Vol] 0.64 mg/dL Low 0.73-1.22 [facility] Comment on above: Order Comment: Speci men Type: BLOOD SPECIMENOrdering Facility: [facility] Address: [address] [place] [address] Performed By: #### 2 4321-2, 15372-2, 55122-6, 2777-1 ####[facility]ATORYCLIA [id number] [address] ESTIMATED GLOMERULAR FILTRATION RATE 102 mL/min/1.73m??? Normal >=60 [facility] Comment on above: Order Comment: Speci men Type: BLOOD SPECIMENOrdering Facility: [facility] Address: [address] [place], [place] [address] Result Comment: Luzmaria mated Glomerular Filtration Rate [...] actual GFR. Performed By: #### 2 4321-2, 95034-6, 76000-7, 2776- ####[facility]ORATORYCLIA [id number] [place] [address] [place] Glucose [Mass/Vol] 122 mg/dL High 74-99 [facility] Comment on above: Order Comment: Shira feldman Type: BLOOD SPECIMENOrdering Facility: [facility] Address: [address] [place], [place] [address] Result Comment: The [place] Diabetes Association (ADA) provides guidance for cutoff [...] Standards of Medical Care in Diabetes 2016, [place] [employer]. Diabetes Care. 2016.39(Suppl 1). Performed By: #### 2 4321-2, 15084-8, 67086-5, 2776- ####[facility]ATORYCLIA [id number] [place] [address] [place] Potassium [Moles/Vol] 4.2 mmol/L Normal 3.7-5.1 [facility] Comment on above: Order Comment: Shira feldman Type: BLOOD SPECIMENOrdering Facility: [facility] Address: [address] [place] [address] Performed By: #### 2 4321-2, 14075-9, 43597-1, 7-1 ####[facility]ORATORYCLIA [id number] [place] [address] [place] Sodium [Moles/Vol] 135 mmol/L Low 136-144 [facility] Comment on above: Order Comment: Speci men Type: BLOOD SPECIMENOrdering Facility: [facility] Address: [address] [place] [address] Performed By: #### 2 4321-2, 99760-3, 04253-3, 2777-1 ####[facility]ATORYCLIA [id number] [address] [place] Urea nitrogen [Mass/Vol] 36 mg/dL High 9-24 [facility] Comment on above: Order Comment: Speci men Type: BLOOD SPECIMENOrdering Facility: [facility] Address: [address] [place] [address] Performed By: #### 2 4321-2, 37722-2, 60176-6, 2777-1 ####[facility]ATORYCLIA [id number] [address] STATES [facility] CASE MANAGEMon 08-01-2021 CASE MANAGEM Normal [facility] CBC W Auto Differential pane l (Bld)on 08-01-2021 Basophils (Bld) [#/Vol] 0.04 10*3/uL Normal <0.11 [facility] Comment on above: Order Comment: Speci men Type: BLOOD SPECIMENOrdering Facility: [facility] Address: [address] [place] [address] Performed By: #### 5 7021-8 ####[facility]ATORYCLIA [id number] [address] [place] Basophils/100 WBC (Bld) 0.3 % Normal [facility] Comment on above: Order Comment: Speci men Type: BLOOD SPECIMENOrdering Facility: [facility] Address: [address] [place] [address] Performed By: #### 5 7021-8 ####[facility]ORATORYCLIA [id number] [address] Differential cell count method Nom (Bld) Auto Normal [facility] Comment on above: Order Comment: Speci men Type: BLOOD SPECIMENOrdering Facility: [facility] Address: [address] [place] [address] Performed By: #### 5 7021-8 ####[facility]ORATORYCLIA [id number] [address] [place] Eosinophils (Bld) [#/Vol] 0.37 10*3/uL Normal <0.46 [facility] Comment on above: Order Comment: Speci men Type: BLOOD SPECIMENOrdering Facility: [facility] Address: [address] [place] [address] Performed By: #### 5 7021-8 ####[facility]ORATORYCLIA [id number] [address] OF [facility] Eosinophils/100 WBC (Bld) 3.1 % Normal [facility] Comment on above: Order Comment: Speci men Type: BLOOD SPECIMENOrdering Facility: [facility] Address: [address] [place] [address] Performed By: #### 5 7021-8 ####[facility]ATORYCLIA [id number] [address] [place] Erythrocyte distribution width (RBC) [Ratio] 17.5 % High 11.5-15.0 [facility] Comment on above: Order Comment: Speci men Type: BLOOD SPECIMENOrdering Facility: [facility] Address: [address] [place] [address] Performed By: #### 5 7021-8 ####[facility]ORATORYCLIA [id number] [address] [place] Hematocrit (Bld) [Volume fraction] 30.1 % Low 39.0-51.0 [facility] Comment on above: Order Comment: Speci men Type: BLOOD SPECIMENOrdering Facility: [facility] Address: [address] [place] [address] Performed By: #### 5 7021-8 ####[facility]ATORYCLIA [id number] [address] OF [facility] Hemoglobin (Bld) [Mass/Vol] 9.1 g/dL Low 13.0-17.0 [facility] Comment on above: Order Comment: Speci men Type: BLOOD SPECIMENOrdering Facility: [facility] Address: [address] [place] [address] Performed By: #### 5 7021-8 ####[facility]ORATORYCLIA [id number] [address] IMMATURE GRAN % 0.6 % Normal [facility] Comment on above: Order Comment: Speci men Type: BLOOD SPECIMENOrdering Facility: [facility] Address: [address] [place] [address] Performed By: #### 5 7021-8 ####[facility]ORATORYCLIA [id number] [address] IMMATURE GRAN ABS 0.07 k/uL Normal <0.10 [facility] Comment on above: Order Comment: Speci men Type: BLOOD SPECIMENOrdering Facility: [facility] Address: [address] [place] [address] Performed By: #### 5 7021-8 ####[facility]ATORYCLIA [id number] [address] Lymphocytes (Bld) [#/Vol] 2.05 10*3/uL Normal 1.00-4.00 [facility] Comment on above: Order Comment: Speci men Type: BLOOD SPECIMENOrdering Facility: [facility] Address: [address] [place] [address] Performed By: #### 5 7021-8 ####[facility]ORATORYCLIA [id number] [address] Lymphocytes/100 WBC (Bld) 17.1 % Normal [facility] Comment on above: Order Comment: Speci men Type: BLOOD SPECIMENOrdering Facility: [facility] Address: [address] [place] [address] Performed By: #### 5 7021-8 ####[facility]ORATORYCLIA [id number] [address] MCH (RBC) [Entitic mass] 27.7 pg Normal 26.0-34.0 [facility] Comment on above: Order Comment: Speci men Type: BLOOD SPECIMENOrdering Facility: [facility] Address: [address] [place] [address] Performed By: #### 5 7021-8 ####[facility]ATORYCLIA [id number] [address] MCHC (RBC) [Mass/Vol] 30.2 g/dL Low 30.5-36.0 [facility] Comment on above: Order Comment: Speci men Type: BLOOD SPECIMENOrdering Facility: [facility] Address: [address] [place] [address] Performed By: #### 5 7021-8 ####[facility]ORATORYCLIA [id number] [address] MCV (RBC) [Entitic vol] 91.5 fL Normal 80.0-100.0 [facility] Comment on above: Order Comment: Speci men Type: BLOOD SPECIMENOrdering Facility: [facility] Address: [address] [place] [address] Performed By: #### 5 7021-8 ####[facility]ORATORYCLIA [id number] [address] Monocytes (Bld) [#/Vol] 0.53 10*3/uL Normal <0.87 [facility] Comment on above: Order Comment: Speci men Type: BLOOD SPECIMENOrdering Facility: [facility] Address: [address] [place] [address] Performed By: #### 5 7021-8 ####[facility] LABORATORYCLIA [id number] [address] Monocytes/100 WBC (Bld) 4.4 % Normal [facility] Comment on above: Order Comment: Speci men Type: BLOOD SPECIMENOrdering Facility: [facility] Address: [address] [address] Performed By: #### 5 7021-8 ####[facility] LABORATORYCLIA [id number] [address] [place] Neutrophils (Bld) [#/Vol] 8.91 10*3/uL High 1.45-7.50 [facility] Comment on above: Order Comment: Speci men Type: BLOOD SPECIMENOrdering Facility: [facility] Address: [address] [place] [address] Performed By: #### 5 7021-8 ####[facility] LABORATORYCLIA [id number] [address] Neutrophils/100 WBC (Bld) 74.5 % Normal [facility] Comment on above: Order Comment: Speci men Type: BLOOD SPECIMENOrdering Facility: [facility] Address: [address] [place] [address] Performed By: #### 5 7021-8 ####[facility] LABORATORYCLIA [id number] [address] Nucleated RBC (Bld) [#/Vol] 10*3/uL Normal <0.01 [facility] Comment on above: Order Comment: Speci men Type: BLOOD SPECIMENOrdering Facility: [facility] Address: [address] [place] [address] Performed By: #### 5 7021-8 ####[facility] LABORATORYCLIA [id number] [address] Nucleated RBC/100 WBC (Bld) [Ratio] 0.0 /100 WBC Normal [facility] Comment on above: Order Comment: Speci men Type: BLOOD SPECIMENOrdering Facility: [facility] Address: [address] [place] [address] Performed By: #### 5 7021-8 ####[facility]ORATORYCLIA [id number] [address] Platelet mean volume (Bld) [Entitic vol] 10.4 fL Normal 9.0-12.7 [facility] Comment on above: Order Comment: Speci men Type: BLOOD SPECIMENOrdering Facility: [facility] Address: [address] [place] [address] Performed By: #### 5 7021-8 ####[facility] LABORATORYCLIA [id number] [address] [place] Platelets (Bld) [#/Vol] 319 10*3/uL Normal 150-400 [facility] Comment on above: Order Comment: Speci men Type: BLOOD SPECIMENOrdering Facility: [facility] Address: [address] [place] [address] Performed By: #### 5 7021-8 ####[facility] LABORATORYCLIA [id number] [address] STATES [facility] RBC (Bld) [#/Vol] 3.29 10*6/uL Low 4.20-6.00 [facility] Comment on above: Order Comment: Speci men Type: BLOOD SPECIMENOrdering Facility: [facility] Address: [address] [place] [address] Performed By: #### 5 7021-8 ####[facility] LABORATORYCLIA [id number] [address] OF [facility] WBC (Bld) [#/Vol] 11.97 10*3/uL High 3.70-11.00 [facility] Comment on above: Order Comment: Speci men Type: BLOOD SPECIMENOrdering Facility: [facility] Address: [address] [place] [address] Performed By: #### 5 7021-8 ####[facility] LABORATORYCLIA [id number] [address] BRAIN WO IVCONon 08-02-19 CT BRAIN WO IVCON Normal [facility] Magnesium SerPl-mCncon 08-01 Magnesium [Mass/Vol] 2.4 mg/dL High 1.7-2.3 [facility] Comment on above: Order Comment: Speci men Type: BLOOD SPECIMENOrdering Facility: [facility] Address: [address] [place] [address] [place] [address] Performed By: #### 2 4321-2, 06187-1, 32968-1, 2777-1 ####[facility] LABORATORYCLIA [id number] [address] [place] NURSING PROGon 08-01-2021 NURSING PROG Normal [facility] NUTRITIONon 08-01-2021 NUTRITION Normal [facility] Phosphate SerPl-mCncon 08-01 Phosphate [Mass/Vol] 3.3 mg/dL Normal 2.7-4.8 [facility] Comment on above: Order Comment: Speci men Type: BLOOD SPECIMENOrdering Facility: [facility] Address: [address] [place] [address] Performed By: #### 2 4321-2, 60231-1, 97328-8, 2777-1 ####[facility] LABORATORYCLIA [id number] [address] [place] Prealbumin [Mass/Vol]on 07-06 Prealbumin Nephelometry [Mass/Vol] 30 mg/dL Normal 17-36 [facility] Comment on above: Order Comment: Speci men Type: BLOOD SPECIMENOrdering Facility: [facility] Address: [facility] [place] [address] Performed By: #### 2 4321-2, 39181-3, 99122-1, 2777-1 ####[facility] LABORATORYCLIA [id number] [address] [place] THERAPY NTon 08-01-2021 THERAPY NT Normal [facility] THERAPY NT Normal [facility] TYPE AND SCREENon 08-01-2021 ABO O Normal [facility] Comment on above: Order Comment: Speci men Type: BLOOD SPECIMENOrdering Facility: [facility] Address: [address] [place] [address] Performed By: #### T SCR ####[facility] BLOOD BANKCLIA [id number] [address] HISTORICAL AB SCR STATUS Negative Normal [facility] Comment on above: Order Comment: Speci men Type: BLOOD SPECIMENOrdering Facility: [facility] Address: [address] [place] [address] Performed By: #### T SCR ####[facility] BLOOD BANKCLIA [id number] [address] Rh Nom (Bld) Positive Normal [facility] Comment on above: Order Comment: Speci men Type: BLOOD SPECIMENOrdering Facility: [facility] Address: [address] [place] [address] Performed By: #### T SCR ####[facility] BLOOD BANKCLIA [id number] [address] TYPE AND SCREEN EXPIRATION 08/04/2021 23:59 Normal [facility] Comment on above: Order Comment: Speci men Type: BLOOD SPECIMENOrdering Facility: [facility] Address: [address] [place] [address] Performed By: #### T SCR ####[facility] BLOOD BANKCLIA [id number] [address] XR CHEST 1V FRONTALon 2021 XR CHEST 1V FRONTAL Normal [facility] aPTT PPPon 08-01-2021 aPTT Coag (PPP) [Time] 50.9 s High 23.0-32.4 [facility] Comment on above: Order Comment: Speci men Type: BLOOD SPECIMENOrdering Facility: [facility] Address: [address] [place] [address] Performed By: #### 1 4979-9 ####[facility] LABORATORYCLIA [id number] [address] CBC W Auto Differential pane l (Bld)on 07-31-2021 Basophils (Bld) [#/Vol] 0.05 10*3/uL Normal <0.11 [facility] Comment on above: Order Comment: Speci men Type: BLOOD SPECIMENOrdering Facility: [facility] Address: [address] [place] [address] Performed By: #### 5 7021-8 ####[facility]ORATORYCLIA [id number] [address] STATES [facility] Basophils/100 WBC (Bld) 0.4 % Normal [facility] Comment on above: Order Comment: Speci men Type: BLOOD SPECIMENOrdering Facility: [facility] Address: [address] [place] [address] Performed By: #### 5 7021-8 ####[facility]ATORYCLIA [id number] [address] Differential cell count method Nom (Bld) Auto Normal [facility] Comment on above: Order Comment: Speci men Type: BLOOD SPECIMENOrdering Facility: [facility] Address: [address] [place] [address] Performed By: #### 5 7021-8 ####[facility] LABORATORYCLIA [id number] [address] [place] Eosinophils (Bld) [#/Vol] 0.51 10*3/uL High <0.46 [facility] Comment on above: Order Comment: Speci men Type: BLOOD SPECIMENOrdering Facility: [facility] Address: [address] [place] [address] Performed By: #### 5 7021-8 ####[facility] LABORATORYCLIA [id number] [address] Eosinophils/100 WBC (Bld) 4.5 % Normal [facility] Comment on above: Order Comment: Speci men Type: BLOOD SPECIMENOrdering Facility: [facility] Address: [address] [place] [address] Performed By: #### 5 7021-8 ####[facility] LABORATORYCLIA [id number] [address] [place] Erythrocyte distribution width (RBC) [Ratio] 17.5 % High 11.5-15.0 [facility] Comment on above: Order Comment: Speci men Type: BLOOD SPECIMENOrdering Facility: [facility] Address: [address] [place] [address] Performed By: #### 5 7021-8 ####[facility] LABORATORYCLIA [id number] [address] OF [facility] Hematocrit (Bld) [Volume fraction] 30.4 % Low 39.0-51.0 [facility] Comment on above: Order Comment: Speci men Type: BLOOD SPECIMENOrdering Facility: [facility] Address: [address] [place] [address] Performed By: #### 5 7021-8 ####[facility] LABORATORYCLIA [id number] [address] OF [facility] Hemoglobin (Bld) [Mass/Vol] 9.2 g/dL Low 13.0-17.0 [facility] Comment on above: Order Comment: Speci men Type: BLOOD SPECIMENOrdering Facility: [facility] Address: [address] [place] [address] Performed By: #### 5 7021-8 ####[facility] LABORATORYCLIA [id number] [address] IMMATURE GRAN % 0.5 % Normal [facility] Comment on above: Order Comment: Speci men Type: BLOOD SPECIMENOrdering Facility: [facility] Address: [address] [place] [address] Performed By: #### 5 7021-8 ####[facility] LABORATORYCLIA [id number] [address] IMMATURE GRAN ABS 0.06 k/uL Normal <0.10 [facility] Comment on above: Order Comment: Speci men Type: BLOOD SPECIMENOrdering Facility: [facility] Address: [address] [place] [address] Performed By: #### 5 7021-8 ####[facility] LABORATORYCLIA [id number] [address] [place] Lymphocytes (Bld) [#/Vol] 1.99 10*3/uL Normal 1.00-4.00 [facility] Comment on above: Order Comment: Speci men Type: BLOOD SPECIMENOrdering Facility: [facility] Address: [address] [place] [address] Performed By: #### 5 7021-8 ####[facility] LABORATORYCLIA [id number] [address] Lymphocytes/100 WBC (Bld) 17.6 % Normal [facility] Comment on above: Order Comment: Speci men Type: BLOOD SPECIMENOrdering Facility: [facility] Address: [address] [place] [address] Performed By: #### 5 7021-8 ####[facility] LABORATORYCLIA [id number] [address] MCH (RBC) [Entitic mass] 28.4 pg Normal 26.0-34.0 [facility] Comment on above: Order Comment: Speci men Type: BLOOD SPECIMENOrdering Facility: [facility] Address: [address] [place] [address] Performed By: #### 5 7021-8 ####[facility] LABORATORYCLIA [id number] [address] [place] MCHC (RBC) [Mass/Vol] 30.3 g/dL Low 30.5-36.0 [facility] Comment on above: Order Comment: Speci men Type: BLOOD SPECIMENOrdering Facility: [facility] Address: [address] [place] [address] Performed By: #### 5 7021-8 ####[facility] LABORATORYCLIA [id number] [address] MCV (RBC) [Entitic vol] 93.8 fL Normal 80.0-100.0 [facility] Comment on above: Order Comment: Speci men Type: BLOOD SPECIMENOrdering Facility: [facility] Address: [address] [place] [address] Performed By: #### 5 7021-8 ####[facility]ATORYCLIA [id number] [address] [place] Monocytes (Bld) [#/Vol] 0.57 10*3/uL Normal <0.87 [facility] Comment on above: Order Comment: Speci men Type: BLOOD SPECIMENOrdering Facility: [facility] Address: [address] [place] [address] Performed By: #### 5 7021-8 ####[facility] LABORATORYCLIA [id number] [address] [place] Monocytes/100 WBC (Bld) 5.0 % Normal [facility] Comment on above: Order Comment: Speci men Type: BLOOD SPECIMENOrdering Facility: [facility] Address: [address] [place] [address] Performed By: #### 5 7021-8 ####[facility] LABORATORYCLIA [id number] [address] [place] Neutrophils (Bld) [#/Vol] 8.12 10*3/uL High 1.45-7.50 [facility] Comment on above: Order Comment: Speci men Type: BLOOD SPECIMENOrdering Facility: [facility] Address: [address] [place] [address] Performed By: #### 5 7021-8 ####[facility] LABORATORYCLIA [id number] [address] [place] Neutrophils/100 WBC (Bld) 72.0 % Normal [facility] Comment on above: Order Comment: Speci men Type: BLOOD SPECIMENOrdering Facility: [facility] Address: [address] [place] [address] Performed By: #### 5 7021-8 ####[facility]ATORYCLIA [id number] [place] [address] [place] Nucleated RBC (Bld) [#/Vol] 10*3/uL Normal <0.01 [facility] Comment on above: Order Comment: Speci men Type: BLOOD SPECIMENOrdering Facility: [facility] Address: [address] [place] [address] Performed By: #### 5 7021-8 ####[facility] LABORATORYCLIA [id number] [address] STATES OF [facility] Nucleated RBC/100 WBC (Bld) [Ratio] 0.0 /100 WBC Normal [facility] Comment on above: Order Comment: Speci men Type: BLOOD SPECIMENOrdering Facility: [facility] Address: [address] [place], [place] [address] Performed By: #### 5 7021-8 ####[facility] LABORATORYCLIA [id number] [address] [place] Platelet mean volume (Bld) [Entitic vol] 10.9 fL Normal 9.0-12.7 [facility] Comment on above: Order Comment: Speci men Type: BLOOD SPECIMENOrdering Facility: [facility] Address: [address] [place], [place] [address] Performed By: #### 5 7021-8 ####[facility] LABORATORYCLIA [id number] [address] [place] Platelets (Bld) [#/Vol] 303 10*3/uL Normal 150-400 [facility] Comment on above: Order Comment: Speci men Type: BLOOD SPECIMENOrdering Facility: [facility] Address: [address] [place], [place] [address] Performed By: #### 5 7021-8 ####[facility] LABORATORYCLIA [id number] [address] [place] RBC (Bld) [#/Vol] 3.24 10*6/uL Low 4.20-6.00 [facility] Comment on above: Order Comment: Speci men Type: BLOOD SPECIMENOrdering Facility: [facility] Address: [address] [place], [place] [address] Performed By: #### 5 7021-8 ####[facility] LABORATORYCLIA [id number] [address] STATES OF [facility] WBC (Bld) [#/Vol] 11.30 10*3/uL High 3.70-11.00 [facility] Comment on above: Order Comment: Speci men Type: BLOOD SPECIMENOrdering Facility: [facility] Address: [address] [place] [address] Performed By: #### 5 7021-8 ####[facility] LABORATORYCLIA [id number] [address] OF [facility] NURSING PROGon 07-31-2021 NURSING PROG Normal [facility] aPTT PPPon 07-31-2021 aPTT Coag (PPP) [Time] 64.9 s High 23.0-32.4 [facility] Comment on above: Order Comment: Speci men Type: BLOOD SPECIMENOrdering Facility: [facility] Address: [address] [place] [address] Performed By: #### 1 4979-9 ####[facility] LABORATORYCLIA [id number] [address] ALLIED HEALTHon 07-30-2021 ALLIED HEALTH Normal [facility] Bacteria CSF Culton 07-31-19 22 Bacteria identified Cx Nom (CSF) CULTURE, CSF: No growth 14 days GRAM STAIN: No organisms seen Few Mononuclear cells Rare Polymorphonuclear leukocytes Gram stain performed on cytospun specimen. Normal [facility] Comment on above: Performed By: #### 6 06-4 ####[facility] LABORATORYCLIA [id number] [address] Basic metabolic 2000 panelon 07-30-2021 Anion gap [Moles/Vol] 9 mmol/L Normal 9-18 [facility] Comment on above: Order Comment: Speci men Type: BLOOD SPECIMENOrdering Facility: [facility] Address: [address] [place] [address] Performed By: #### 2 777-1, 23614-7, 14024-9 ####[facility] LABORATORYCLIA [id number] [place] [address] [place] Calcium [Mass/Vol] 8.9 mg/dL Normal 8.5-10.2 [facility] Comment on above: Order Comment: Speci men Type: BLOOD SPECIMENOrdering Facility: [facility] Address: [address] [place] [address] Performed By: #### 2 777-1, 25490-9, ####[facility] LABORATORYCLIA [id number] [place] [address] [place] Chloride [Moles/Vol] 95 mmol/L Low 97-105 [facility] Comment on above: Order Comment: Speci men Type: BLOOD SPECIMENOrdering Facility: [facility] Address: [address] [place] [address] Performed By: #### 2 777-1, , ####[facility] LABORATORYCLIA [id number] [address] [place] CO2 [Moles/Vol] 28 mmol/L Normal 22-30 [facility] Comment on above: Order Comment: Speci men Type: BLOOD SPECIMENOrdering Facility: [facility] Address: [address] [place] [address] Performed By: #### 2 777-1, , ####[facility] LABORATORYCLIA [id number] [place] [address] [place] Creatinine [Mass/Vol] 0.67 mg/dL Low 0.73-1.22 [facility] Comment on above: Order Comment: Speci men Type: BLOOD SPECIMENOrdering Facility: [facility] Address: [address] [place] [address] Performed By: #### 2 777-1, 01300-9, ####[facility] LABORATORYCLIA [id number] [address] OF [facility] ESTIMATED GLOMERULAR FILTRATION RATE 101 mL/min/1.73m??? Normal >=60 [facility] Comment on above: Order Comment: Shira feldman Type: BLOOD SPECIMENOrdering Facility: [facility] Address: [address] [place] [address] Result Comment: Luzmaria mated Glomerular Filtration Rate [...] actual GFR. Performed By: #### 2 777-1, 71872-4, ####[facility] LABORATORYCLIA [id number] [place] [address] [place] Glucose [Mass/Vol] 125 mg/dL High 74-99 [facility] Comment on above: Order Comment: Shira feldman Type: BLOOD SPECIMENOrdering Facility: [facility] Address: [address] [place] [address] Result Comment: The [place] Diabetes Association (ADA) provides guidance for cutoff [...] Standards of Medical Care in Diabetes 2016, [place] [employer] Association. Diabetes Care. 2016.39(Suppl 1). Performed By: #### 2 777-1, 01768-0, 73309-3 ####[facility] LABORATORYCLIA [id number] [place] [id number] [place] Potassium [Moles/Vol] 3.9 mmol/L Normal 3.7-5.1 [facility] Comment on above: Order Comment: Shira feldman Type: BLOOD SPECIMENOrdering Facility: [facility] Address: [address] [place] [address] Performed By: #### 2 777-1, 09773-6, 33556-4 ####[facility] LABORATORYCLIA [id number] [address] STATES [facility] Sodium [Moles/Vol] 132 mmol/L Low 136-144 [facility] Comment on above: Order Comment: Speci men Type: BLOOD SPECIMENOrdering Facility: [facility] Address: [address] [place] [address] Performed By: #### 2 777-1, 91517-8, ####[facility] LABORATORYCLIA [id number] [address] STATES OF [facility] Urea nitrogen [Mass/Vol] 38 mg/dL High 9-24 [facility] Comment on above: Order Comment: Speci men Type: BLOOD SPECIMENOrdering Facility: [facility] Address: [address] [place] [address] Performed By: #### 2 777-1, 42516-7, ####[facility] LABORATORYCLIA [id number] [address] OF [facility] CBC W Auto Differential pane l (Bld)on 07-30-2021 Basophils (Bld) [#/Vol] 0.04 10*3/uL Normal <0.11 [facility] Comment on above: Order Comment: Speci men Type: BLOOD SPECIMENOrdering Facility: [facility] Address: [address] [place] [address] Performed By: #### 5 7021-8 ####[facility] LABORATORYCLIA [id number] [address] Basophils/100 WBC (Bld) 0.4 % Normal [facility] Comment on above: Order Comment: Speci men Type: BLOOD SPECIMENOrdering Facility: [facility] Address: [address] [place] [address] Performed By: #### 5 7021-8 ####[facility] LABORATORYCLIA [id number] [address] Differential cell count method Nom (Bld) Auto Normal [facility] Comment on above: Order Comment: Speci men Type: BLOOD SPECIMENOrdering Facility: [facility] Address: [address] [place] [address] Performed By: #### 5 7021-8 ####[facility] LABORATORYCLIA [id number] [address] Eosinophils (Bld) [#/Vol] 0.30 10*3/uL Normal <0.46 [facility] Comment on above: Order Comment: Speci men Type: BLOOD SPECIMENOrdering Facility: [facility] Address: [address] [place] [address] Performed By: #### 5 7021-8 ####[facility] LABORATORYCLIA [id number] [address] Eosinophils/100 WBC (Bld) 2.7 % Normal [facility] Comment on above: Order Comment: Speci men Type: BLOOD SPECIMENOrdering Facility: [facility] Address: [address] [place] [address] Performed By: #### 5 7021-8 ####[facility] LABORATORYCLIA [id number] [address] Erythrocyte distribution width (RBC) [Ratio] 17.2 % High 11.5-15.0 [facility] Comment on above: Order Comment: Speci men Type: BLOOD SPECIMENOrdering Facility: [facility] Address: [address] [place] [address] Performed By: #### 5 7021-8 ####[facility] LABORATORYCLIA [id number] [address] Hematocrit (Bld) [Volume fraction] 30.8 % Low 39.0-51.0 [facility] Comment on above: Order Comment: Speci men Type: BLOOD SPECIMENOrdering Facility: [facility] Address: [address] [place] [address] Performed By: #### 5 7021-8 ####[facility] LABORATORYCLIA [id number] [address] OF [facility] Hemoglobin (Bld) [Mass/Vol] 9.4 g/dL Low 13.0-17.0 [facility] Comment on above: Order Comment: Speci men Type: BLOOD SPECIMENOrdering Facility: [facility] Address: [address] [place] [address] Performed By: #### 5 7021-8 ####[facility] LABORATORYCLIA [id number] [address] IMMATURE GRAN % 0.5 % Normal [facility] Comment on above: Order Comment: Speci men Type: BLOOD SPECIMENOrdering Facility: [facility] Address: [address] [place] [address] Performed By: #### 5 7021-8 ####[facility] LABORATORYCLIA [id number] [address] IMMATURE GRAN ABS 0.06 k/uL Normal <0.10 [facility] Comment on above: Order Comment: Speci men Type: BLOOD SPECIMENOrdering Facility: [facility] Address: [address] [place] [address] Performed By: #### 5 7021-8 ####[facility] LABORATORYCLIA [id number] [address] [place] Lymphocytes (Bld) [#/Vol] 1.68 10*3/uL Normal 1.00-4.00 [facility] Comment on above: Order Comment: Speci men Type: BLOOD SPECIMENOrdering Facility: [facility] Address: [address] [place] [address] Performed By: #### 5 7021-8 ####[facility] LABORATORYCLIA [id number] [address] Lymphocytes/100 WBC (Bld) 15.3 % Normal [facility] Comment on above: Order Comment: Speci men Type: BLOOD SPECIMENOrdering Facility: [facility] Address: [address] [place] [address] Performed By: #### 5 7021-8 ####[facility] LABORATORYCLIA [id number] [address] MCH (RBC) [Entitic mass] 28.0 pg Normal 26.0-34.0 [facility] Comment on above: Order Comment: Speci men Type: BLOOD SPECIMENOrdering Facility: [facility] Address: [address] [place] [address] Performed By: #### 5 7021-8 ####[facility] LABORATORYCLIA [id number] [address] MCHC (RBC) [Mass/Vol] 30.5 g/dL Normal 30.5-36.0 [facility] Comment on above: Order Comment: Speci men Type: BLOOD SPECIMENOrdering Facility: [facility] Address: [address] [place] [address] Performed By: #### 5 7021-8 ####[facility] LABORATORYCLIA [id number] [address] MCV (RBC) [Entitic vol] 91.7 fL Normal 80.0-100.0 [facility] Comment on above: Order Comment: Speci men Type: BLOOD SPECIMENOrdering Facility: [facility] Address: [address] [place] [address] Performed By: #### 5 7021-8 ####[facility] LABORATORYCLIA [id number] [address] Monocytes (Bld) [#/Vol] 0.53 10*3/uL Normal <0.87 [facility] Comment on above: Order Comment: Speci men Type: BLOOD SPECIMENOrdering Facility: [facility] Address: [address] [place] [address] Performed By: #### 5 7021-8 ####[facility] LABORATORYCLIA [id number] [address] Monocytes/100 WBC (Bld) 4.8 % Normal [facility] Comment on above: Order Comment: Speci men Type: BLOOD SPECIMENOrdering Facility: [facility] Address: [address] [place] [address] Performed By: #### 5 7021-8 ####[facility]ATORYCLIA [id number] [address] [place] Neutrophils (Bld) [#/Vol] 8.39 10*3/uL High 1.45-7.50 [facility] Comment on above: Order Comment: Speci men Type: BLOOD SPECIMENOrdering Facility: [facility] Address: [address] [place] [address] Performed By: #### 5 7021-8 ####[facility] LABORATORYCLIA [id number] [address] Neutrophils/100 WBC (Bld) 76.3 % Normal [facility] Comment on above: Order Comment: Speci men Type: BLOOD SPECIMENOrdering Facility: [facility] Address: [address] [place] [address] Performed By: #### 5 7021-8 ####[facility]ATORYCLIA [id number] [address] [place] Nucleated RBC (Bld) [#/Vol] 10*3/uL Normal <0.01 [facility] Comment on above: Order Comment: Speci men Type: BLOOD SPECIMENOrdering Facility: [facility] Address: [address] [place] [address] Performed By: #### 5 7021-8 ####[facility]ATORYCLIA [id number] [address] [place] Nucleated RBC/100 WBC (Bld) [Ratio] 0.0 /100 WBC Normal [facility] Comment on above: Order Comment: Speci men Type: BLOOD SPECIMENOrdering Facility: [facility] Address: [address] [place] [address] Performed By: #### 5 7021-8 ####[facility]ORATORYCLIA [id number] [address] [place] Platelet mean volume (Bld) [Entitic vol] 10.9 fL Normal 9.0-12.7 [facility] Comment on above: Order Comment: Speci men Type: BLOOD SPECIMENOrdering Facility: [facility] Address: [address] [place] [address] Performed By: #### 5 7021-8 ####[facility] LABORATORYCLIA [id number] [place] [address] [place] Platelets (Bld) [#/Vol] 287 10*3/uL Normal 150-400 [facility] Comment on above: Order Comment: Speci men Type: BLOOD SPECIMENOrdering Facility: [facility] Address: [address] [place] [address] Performed By: #### 5 7021-8 ####[facility]ORATORYCLIA [id number] [address] STATES OF [facility] RBC (Bld) [#/Vol] 3.36 10*6/uL Low 4.20-6.00 [facility] Comment on above: Order Comment: Speci men Type: BLOOD SPECIMENOrdering Facility: [facility] Address: [address] [place] [address] Performed By: #### 5 7021-8 ####[facility] LABORATORYCLIA [id number] [address] [place] WBC (Bld) [#/Vol] 11.00 10*3/uL Normal 3.70-11.00 [facility] Comment on above: Order Comment: Speci men Type: BLOOD SPECIMENOrdering Facility: [facility] Address: [address] [place] [address] Performed By: #### 5 7021-8 ####[facility] LABORATORYCLIA [id number] [address] [place] CSF MANUAL DIFFon 07-30-2021 DIF TTL, CSF 100 cells counted Normal [facility] Comment on above: Order Comment: Speci men Type: CEREBROSPINAL FLUIDOrdering Facility: [facility] Address: [address] [address] Performed By: #### L [id number], [id number], 25029-4 ####[facility]ORATORYCLIA [id number] [place] [address] [place] EOSIN%, CSF 0 % Normal [facility] Comment on above: Order Comment: Speci men Type: CEREBROSPINAL FLUIDOrdering Facility: [facility] Address: [address] [place] [address] Performed By: #### L [id number], [id number], 90698-6 ####[facility]ATORYCLIA [id number] [address] [place] LYMPH%, CSF 75 % Normal 50-90 [facility] Comment on above: Order Comment: Speci men Type: CEREBROSPINAL FLUIDOrdering Facility: [facility] Address: [address] [place] [address] Performed By: #### L [id number], CLV4293, 80727-7 ####[facility]ATORYCLIA [id number] [address] [place] MACRO%, CSF 9 % High <1 [facility] Comment on above: Order Comment: Speci men Type: CEREBROSPINAL FLUIDOrdering Facility: [facility] Address: [address] [address] Performed By: #### L [id number], [id number], 05340-6 ####[facility]ATORYCLIA [id number] [address] [place] MONO%, CSF 10 % Normal 10-50 [facility] Comment on above: Order Comment: Speci men Type: CEREBROSPINAL FLUIDOrdering Facility: [facility] Address: [facility] [place] [address] Performed By: #### L [id number], INV7299, 15656-0 ####[facility]ORATORYCLIA [id number] [place] [address] OTHER CL%, CSF 4 % Normal [facility] Comment on above: Order Comment: Speci men Type: CEREBROSPINAL FLUIDOrdering Facility: [facility] Address: [address] [place] [address] Result Comment: Path review to follow. Performed By: #### L [id number], UMB8719, 27266-3 ####[facility]ATORYCLIA [id number] [address] [place] REAC LYMPH %, CSF 2 % Normal [facility] Comment on above: Order Comment: Speci men Type: CEREBROSPINAL FLUIDOrdering Facility: [facility] Address: [address] [place] [address] Performed By: #### L [id number], [id number], 19963-1 ####[facility]ORATORYCLIA [id number] [address] CSF PATHOLOGIST INTERP (LAB REFLEX ORDER-NO BILL)on 07-30-2021 CSF STAFF REVIEW Negative Normal [facility] Comment on above: Order Comment: Speci men Type: CEREBROSPINAL FLUIDOrdering Facility: [facility] Address: [address] [place] [address] Performed By: #### L [id number], UOE8876, 80776-0 ####[facility]ATORYCLIA [id number] [address] Pathologist name Reviewed by Eloise rebolledo MD [facility] Comment on above: Order Comment: Speci men Type: CEREBROSPINAL FLUIDOrdering Facility: [facility] Address: [address] [place] [address] Performed By: #### L [id number], KTF1850, 58341-0 ####[facility]ATORYCLIA [id number] [address] OF [facility] CT BRAIN WO IVCONon 07-31-19 CT BRAIN WO IVCON Normal [facility] Cell count panel (CSF)on Clarity (CSF) Clear Normal Clear [facility] Comment on above: Order Comment: Speci men Type: CEREBROSPINAL FLUIDOrdering Facility: [facility] Address: [address] Performed By: #### L [id number], TOX3845, 66154-7 ####[facility]ATORYCLIA [id number] [address] Clarity (Unsp spec) Clear Normal Clear [facility] Comment on above: Order Comment: Speci men Type: CEREBROSPINAL FLUIDOrdering Facility: [facility] Address: [address] Performed By: #### L [id number], OTA2490, 38704-8 ####[facility]ATORYCLIA [id number] [address] Color (CSF) Colorless Normal Colorless [facility] Comment on above: Order Comment: Speci men Type: CEREBROSPINAL FLUIDOrdering Facility: [facility] Address: [address] [place] [address] Performed By: #### L [id number], IXY9362, 29087-3 ####[facility]ORATORYCLIA [id number] [address] Color (Spun CSF) Colorless Normal Colorless [facility] Comment on above: Order Comment: Speci men Type: CEREBROSPINAL FLUIDOrdering Facility: [facility] Address: [address] [address] Performed By: #### L [id number], VFN7611, 95727-4 ####[facility]ATORYCLIA [id number] [address] CSF TUBE [employer]BER [employer] Normal [facility] Comment on above: Order Comment: Speci men Type: CEREBROSPINAL FLUIDOrdering Facility: [facility] Address: [facility] Performed By: #### L [id number], TAW8282, 37591-7 ####[facility]ORYCLIA [id number] [address] RBC Manual cnt (CSF) [#/Vol] 9 cells/uL High 0-5 [facility] Comment on above: Order Comment: Speci men Type: CEREBROSPINAL FLUIDOrdering Facility: [facility] Address: [address] [place] [address] Performed By: #### L [id number], OHI7806, 24347-5 ####[facility]ORATORYCLIA [id number] [address] STATES OF [facility] WBC Manual cnt (CSF) [#/Vol] 8 cells/uL High 0-5 [facility] Comment on above: Order Comment: Speci men Type: CEREBROSPINAL FLUIDOrdering Facility: [facility] Address: [address] [place] [address] Performed By: #### L [id number], EZD5911, 39735-2 ####[facility]ORATORYCLIA [id number] [address] STATES OF [facility] Glucose CSF-ncon Glucose (CSF) [Mass/Vol] 65 mg/dL Normal 40-70 [facility] Comment on above: Order Comment: Speci men Type: CEREBROSPINAL FLUIDOrdering Facility: [facility] Address: [address] [place] [address] Result Comment: Lumb ar CSF glucose values of healthy patients are approximately 60% of the plasma values and must always be compared with a concurrently measured plasma value for adequate clinical interpretation.References: 1. Glucose HK (GLUC3) [package insert V 12.0 [place]]. [employer], [place], [place]. September 2015. 2. Teresa HGarfield, Loki, H. (2015). Chapter 7: Glucose and Lactate. F. Irina rose al.(eds.), Cerebrospinal Fluid in Clinical Neurology. [place]: [employer]. Performed By: #### 2 342-4, 2880-3 ####[facility] LABORATORYCLIA [id number] [place] [address] [place] Magnesium SerPl-mCncon 07-30 Magnesium [Mass/Vol] 2.5 mg/dL High 1.7-2.3 [facility] Comment on above: Order Comment: Speci men Type: BLOOD SPECIMENOrdering Facility: [facility] Address: [address] [place] [address] Performed By: #### 2 777-1, 85516-4, ####[facility]ORATORYCLIA [id number] [address] OF [facility] NURSING PROGon 07-30-2021 NURSING PROG Normal [facility] Phosphate SerPl-ncon 07-30 Phosphate [Mass/Vol] 2.4 mg/dL Low 2.7-4.8 [facility] Comment on above: Order Comment: Speci men Type: BLOOD SPECIMENOrdering Facility: [facility] Address: [address] [place] [address] Performed By: #### 2 777-1, 70439-2, ####[facility]ORATORYCLIA [id number] [address] STATES OF [facility] Prot CSF-mCncon 07-30-2021 Protein (CSF) [Mass/Vol] 50 mg/dL High 15-45 [facility] Comment on above: Order Comment: Speci men Type: CEREBROSPINAL FLUIDOrdering Facility: [facility] Address: [address] [place] [address] Performed By: #### 2 342-4, 2880-3 ####[facility]ORATORYCLIA [id number] [address] [place] aPTT PPPon 07-30-2021 aPTT Coag (PPP) [Time] 64.1 s High 23.0-32.4 [facility] Comment on above: Order Comment: Speci men Type: BLOOD SPECIMENOrdering Facility: [facility] Address: [address] [place] [address] Performed By: #### 1 4979-9 ####[facility]ORATORYCLIA [id number] [address] [place] Bacteria CSF Culton 07-30-19 Bacteria identified Cx Nom (CSF) CULTURE, CSF: No growth 14 days GRAM STAIN: No cells or organisms seen Gram stain performed on cytospun specimen. Gram stain confirmed by microbiology Normal [facility] Comment on above: Performed By: #### 6 06-4 ####[facility]ORATORYCLIA [id number] [address] [place] CASE MANAGEMon 07-29-2021 CASE MANAGEM Normal [facility] CBC W Auto Differential pane l (Bld)on 07-29-2021 Basophils (Bld) [#/Vol] 0.03 10*3/uL Normal <0.11 [facility] Comment on above: Order Comment: Speci men Type: BLOOD SPECIMENOrdering Facility: [facility] Address: [address] [place] [address] Performed By: #### 5 7021-8 ####[facility]ORATORYCLIA [id number] [address] [place] Basophils/100 WBC (Bld) 0.3 % Normal [facility] Comment on above: Order Comment: Speci men Type: BLOOD SPECIMENOrdering Facility: [facility] Address: [address] [place] [address] Performed By: #### 5 7021-8 ####[facility]ORATORYCLIA [id number] [address] [place] Differential cell count method Nom (Bld) Auto Normal [facility] Comment on above: Order Comment: Speci men Type: BLOOD SPECIMENOrdering Facility: [facility] Address: [address] [address] Performed By: #### 5 7021-8 ####[facility]ORATORYCLIA [id number] [place] [address] [place] Eosinophils (Bld) [#/Vol] 0.40 10*3/uL Normal <0.46 [facility] Comment on above: Order Comment: Speci men Type: BLOOD SPECIMENOrdering Facility: [facility] Address: [address] [address] Performed By: #### 5 7021-8 ####[facility]ATORYCLIA [id number] [address] STATES [facility] Eosinophils/100 WBC (Bld) 3.9 % Normal [facility] Comment on above: Order Comment: Speci men Type: BLOOD SPECIMENOrdering Facility: [facility] Address: [address] [place] [address] Performed By: #### 5 7021-8 ####[facility]ORATORYCLIA [id number] [address] Erythrocyte distribution width (RBC) [Ratio] 17.1 % High 11.5-15.0 [facility] Comment on above: Order Comment: Speci men Type: BLOOD SPECIMENOrdering Facility: [facility] Address: [address] [place] [address] Performed By: #### 5 7021-8 ####[facility]ORATORYCLIA [id number] [address] Hematocrit (Bld) [Volume fraction] 32.0 % Low 39.0-51.0 [facility] Comment on above: Order Comment: Speci men Type: BLOOD SPECIMENOrdering Facility: [facility] Address: [address] [place] [address] Performed By: #### 5 7021-8 ####[facility]ATORYCLIA [id number] [address] [place] Hemoglobin (Bld) [Mass/Vol] 9.7 g/dL Low 13.0-17.0 [facility] Comment on above: Order Comment: Speci men Type: BLOOD SPECIMENOrdering Facility: [facility] Address: [address] [place] [address] Performed By: #### 5 7021-8 ####[facility]ORYCLIA [id number] [address] IMMATURE GRAN % 0.6 % Normal [facility] Comment on above: Order Comment: Speci men Type: BLOOD SPECIMENOrdering Facility: [facility] Address: [address] [address] Performed By: #### 5 7021-8 ####[facility]ATORYCLIA [id number] [address] IMMATURE GRAN ABS 0.06 k/uL Normal <0.10 [facility] Comment on above: Order Comment: Speci men Type: BLOOD SPECIMENOrdering Facility: [facility] Address: [address] [place] [address] Performed By: #### 5 7021-8 ####[facility]ATORYCLIA [id number] [address] Lymphocytes (Bld) [#/Vol] 1.96 10*3/uL Normal 1.00-4.00 [facility] Comment on above: Order Comment: Speci men Type: BLOOD SPECIMENOrdering Facility: [facility] Address: [address] [place] [address] Performed By: #### 5 7021-8 ####[facility]ATORYCLIA [id number] [address] Lymphocytes/100 WBC (Bld) 19.0 % Normal [facility] Comment on above: Order Comment: Speci men Type: BLOOD SPECIMENOrdering Facility: [facility] Address: [address] [place] [address] Performed By: #### 5 7021-8 ####[facility]ATORYCLIA [id number] [address] MCH (RBC) [Entitic mass] 28.0 pg Normal 26.0-34.0 [facility] Comment on above: Order Comment: Speci men Type: BLOOD SPECIMENOrdering Facility: [facility] Address: [address] [place] [address] Performed By: #### 5 7021-8 ####[facility]ORYCLIA [id number] [address] MCHC (RBC) [Mass/Vol] 30.3 g/dL Low 30.5-36.0 [facility] Comment on above: Order Comment: Speci men Type: BLOOD SPECIMENOrdering Facility: [facility] Address: [address] [place] [address] Performed By: #### 5 7021-8 ####[facility]ATORYCLIA [id number] [address] [place] MCV (RBC) [Entitic vol] 92.5 fL Normal 80.0-100.0 [facility] Comment on above: Order Comment: Speci men Type: BLOOD SPECIMENOrdering Facility: [facility] Address: [address] [place] [address] Performed By: #### 5 7021-8 ####[facility]ORYCLIA [id number] [address] [place] Monocytes (Bld) [#/Vol] 0.53 10*3/uL Normal <0.87 [facility] Comment on above: Order Comment: Speci men Type: BLOOD SPECIMENOrdering Facility: [facility] Address: [address] [place] [address] Performed By: #### 5 7021-8 ####[facility]ATORYCLIA [id number] [address] [place] Monocytes/100 WBC (Bld) 5.2 % Normal [facility] Comment on above: Order Comment: Speci men Type: BLOOD SPECIMENOrdering Facility: [facility] Address: [address] [place] [address] Performed By: #### 5 7021-8 ####[facility]ORATORYCLIA [id number] [place] [address] [place] Neutrophils (Bld) [#/Vol] 7.31 10*3/uL Normal 1.45-7.50 [facility] Comment on above: Order Comment: Speci men Type: BLOOD SPECIMENOrdering Facility: [facility] Address: [address] [place] [address] Performed By: #### 5 7021-8 ####[facility]ATORYCLIA [id number] [address] [place] Neutrophils/100 WBC (Bld) 71.0 % Normal [facility] Comment on above: Order Comment: Speci men Type: BLOOD SPECIMENOrdering Facility: [facility] Address: [address] [place] [address] Performed By: #### 5 7021-8 ####[facility]ATORYCLIA [id number] [address] [place] Nucleated RBC (Bld) [#/Vol] 10*3/uL Normal <0.01 [facility] Comment on above: Order Comment: Speci men Type: BLOOD SPECIMENOrdering Facility: [facility] Address: [address] [place] [address] Performed By: #### 5 7021-8 ####[facility]ORATORYCLIA [id number] [address] STATES [facility] Nucleated RBC/100 WBC (Bld) [Ratio] 0.0 /100 WBC Normal [facility] Comment on above: Order Comment: Speci men Type: BLOOD SPECIMENOrdering Facility: [facility] Address: [address] [place] [address] Performed By: #### 5 7021-8 ####[facility]ATORYCLIA [id number] [address] [place] Platelet mean volume (Bld) [Entitic vol] 11.2 fL Normal 9.0-12.7 [facility] Comment on above: Order Comment: Speci men Type: BLOOD SPECIMENOrdering Facility: [facility] Address: [address] [place] [address] Performed By: #### 5 7021-8 ####[facility]ATORYCLIA [id number] [address] [place] Platelets (Bld) [#/Vol] 276 10*3/uL Normal 150-400 [facility] Comment on above: Order Comment: Speci men Type: BLOOD SPECIMENOrdering Facility: [facility] Address: [address] [place], [place] [address] Performed By: #### 5 7021-8 ####[facility]ATORYCLIA [id number] [address] RBC (Bld) [#/Vol] 3.46 10*6/uL Low 4.20-6.00 [facility] Comment on above: Order Comment: Speci men Type: BLOOD SPECIMENOrdering Facility: [facility] Address: [address] [place] [address] Performed By: #### 5 7021-8 ####[facility]ATORYCLIA [id number] [address] WBC (Bld) [#/Vol] 10.29 10*3/uL Normal 3.70-11.00 [facility] Comment on above: Order Comment: Speci men Type: BLOOD SPECIMENOrdering Facility: [facility] Address: [address] [place] [address] Performed By: #### 5 7021-8 ####[facility]ORATORYCLIA [id number] [address] NURSING PROGon 07-29-2021 NURSING PROG Normal [facility] THERAPY NTon 07-29-2021 THERAPY NT Normal [facility] aPTT PPPon 07-29-2021 aPTT Coag (PPP) [Time] 59.2 s High 23.0-32.4 [facility] Comment on above: Order Comment: Speci men Type: BLOOD SPECIMENOrdering Facility: [facility] Address: [address] [place] [address] Performed By: #### 1 4979-9 ####[facility]ORATORYCLIA [id number] [address] [place] ALLIED HEALTHon 07-28-2021 ALLIED HEALTH Normal [facility] Basic metabolic 2000 panelon 07-28-2021 Anion gap [Moles/Vol] 7 mmol/L Low 9-18 [facility] Comment on above: Order Comment: Speci men Type: BLOOD SPECIMENOrdering Facility: [facility] Address: [address] [place] [address] Performed By: #### 1 4338-8, 99227-3, 2776-, 00361-4 ####[facility]ORATORYCLIA [id number] [place] [address] [place] Calcium [Mass/Vol] 9.0 mg/dL Normal 8.5-10.2 [facility] Comment on above: Order Comment: Speci men Type: BLOOD SPECIMENOrdering Facility: [facility] Address: [address] [place] [address] Performed By: #### 1 4338-8, 68327-9, 277-, 53626-0 ####[facility]ORATORYCLIA [id number] [place] [address] [place] Chloride [Moles/Vol] 94 mmol/L Low 97-105 [facility] Comment on above: Order Comment: Speci men Type: BLOOD SPECIMENOrdering Facility: [facility] Address: [address] [place] [address] Performed By: #### 1 4338-8, 21629-5, 2776-05, 78285-3 ####[facility] LABORATORYCLIA [id number] [place] [address] [place] CO2 [Moles/Vol] 31 mmol/L High 22-30 [facility] Comment on above: Order Comment: Speci men Type: BLOOD SPECIMENOrdering Facility: [facility] Address: [address] [place] [address] Performed By: #### 1 4338-8, 12145-5, 277-1, 27732-3 ####[facility] LABORATORYCLIA [id number] [place] [address] [place] Creatinine [Mass/Vol] 0.75 mg/dL Normal 0.73-1.22 [facility] Comment on above: Order Comment: Speci men Type: BLOOD SPECIMENOrdering Facility: [facility] Address: [address] [place] [address] Performed By: #### 1 4338-8, 14347-7, 2777-1, 97566-0 ####[facility]ITALIA [id number] [address] STATES OF [facility] ESTIMATED GLOMERULAR FILTRATION RATE 98 mL/min/1.73m??? Normal >=60 [facility] Comment on above: Order Comment: Shira feldman Type: BLOOD SPECIMENOrdering Facility: [facility] Address: [address] [place], [place] [address] Result Comment: Luzmaria mated Glomerular Filtration Rate [...] actual GFR. Performed By: #### 1 4338-8, 21972-5, 2777-1, 49227-8 ####[facility]ITALIA [id number] [place] [address] [place] Glucose [Mass/Vol] 122 mg/dL High 74-99 [facility] Comment on above: Order Comment: Shira felmdan Type: BLOOD SPECIMENOrdering Facility: [facility] Address: [address] [place] [address] Result Comment: The [place] Diabetes Association (ADA) provides guidance for cutoff [...] Standards of Medical Care in Diabetes 2016, [employer] Diabetes Association. Diabetes Care. 2016.39(Suppl 1). Performed By: #### 1 4338-8, 65565-2, 277-, 44164-6 ####[facility] LABORATORYCLIA [id number] [place] [address] [place] Potassium [Moles/Vol] 4.0 mmol/L Normal 3.7-5.1 [facility] Comment on above: Order Comment: Speci men Type: BLOOD SPECIMENOrdering Facility: [facility] Address: [address] [place] [address] Performed By: #### 1 4338-8, 14884-1, 277-, 24392-0 ####[facility]ORATORYCLIA [id number] [place] [address] [place] Sodium [Moles/Vol] 132 mmol/L Low 136-144 [facility] Comment on above: Order Comment: Speci men Type: BLOOD SPECIMENOrdering Facility: [facility] Address: [address] [place] [address] Performed By: #### 1 4338-8, 90567-3, 2776-05, 57834-1 ####[facility]ITALCLIA [id number] [address] [place] Urea nitrogen [Mass/Vol] 34 mg/dL High 01-28 [facility] Comment on above: Order Comment: Speci men Type: BLOOD SPECIMENOrdering Facility: [facility] Address: [address] [place] [address] Performed By: #### 1 4338-8, 30948-9, 27711-04, 28088-3 ####[facility]ATORYCLIA [id number] [place] [id number] [place] CBC W Auto Differential pane l (Bld)on 07-28-2021 Basophils (Bld) [#/Vol] 0.04 10*3/uL Normal <0.11 [facility] Comment on above: Order Comment: Speci men Type: BLOOD SPECIMENOrdering Facility: [facility] Address: [address] [place] [address] Performed By: #### 5 7021-8 ####[facility]ATORYCLIA [id number] [address] [place] Basophils/100 WBC (Bld) 0.5 % Normal [facility] Comment on above: Order Comment: Speci men Type: BLOOD SPECIMENOrdering Facility: [facility] Address: [address] [place] [address] Performed By: #### 5 7021-8 ####[facility]ATORYCLIA [id number] [address] [place] Differential cell count method Nom (Bld) Auto Normal [facility] Comment on above: Order Comment: Speci men Type: BLOOD SPECIMENOrdering Facility: [facility] Address: [address] [place] [address] Performed By: #### 5 7021-8 ####[facility]ATORYCLIA [id number] [address] [place] Eosinophils (Bld) [#/Vol] 0.30 10*3/uL Normal <0.46 [facility] Comment on above: Order Comment: Speci men Type: BLOOD SPECIMENOrdering Facility: [facility] Address: [address] [place] [address] Performed By: #### 5 7021-8 ####[facility]ATORYCLIA [id number] [address] [place] Eosinophils/100 WBC (Bld) 3.4 % Normal [facility] Comment on above: Order Comment: Speci men Type: BLOOD SPECIMENOrdering Facility: [facility] Address: [address] [place] [address] Performed By: #### 5 7021-8 ####[facility]ATORYCLIA [id number] [address] [place] Erythrocyte distribution width (RBC) [Ratio] 16.9 % High 11.5-15.0 [facility] Comment on above: Order Comment: Speci men Type: BLOOD SPECIMENOrdering Facility: [facility] Address: [address] [place] [address] Performed By: #### 5 7021-8 ####[facility]ORATORYCLIA [id number] [address] Hematocrit (Bld) [Volume fraction] 30.3 % Low 39.0-51.0 [facility] Comment on above: Order Comment: Speci men Type: BLOOD SPECIMENOrdering Facility: [facility] Address: [address] [place] [address] Performed By: #### 5 7021-8 ####[facility]ORATORYCLIA [id number] [address] Hemoglobin (Bld) [Mass/Vol] 9.2 g/dL Low 13.0-17.0 [facility] Comment on above: Order Comment: Speci men Type: BLOOD SPECIMENOrdering Facility: [facility] Address: [address] [place] [address] Performed By: #### 5 7021-8 ####[facility]ATORYCLIA [id number] [address] IMMATURE GRAN % 0.6 % Normal [facility] Comment on above: Order Comment: Speci men Type: BLOOD SPECIMENOrdering Facility: [facility] Address: [address] [place] [address] Performed By: #### 5 7021-8 ####[facility]ORATORYCLIA [id number] [address] IMMATURE GRAN ABS 0.05 k/uL Normal <0.10 [facility] Comment on above: Order Comment: Speci men Type: BLOOD SPECIMENOrdering Facility: [facility] Address: [address] [place] [address] Performed By: #### 5 7021-8 ####[facility]ORATORYCLIA [id number] [address] Lymphocytes (Bld) [#/Vol] 1.68 10*3/uL Normal 1.00-4.00 [facility] Comment on above: Order Comment: Speci men Type: BLOOD SPECIMENOrdering Facility: [facility] Address: [address] [place] [address] Performed By: #### 5 7021-8 ####[facility]ATORYCLIA [id number] [address] Lymphocytes/100 WBC (Bld) 19.2 % Normal [facility] Comment on above: Order Comment: Speci men Type: BLOOD SPECIMENOrdering Facility: [facility] Address: [address] [place] [address] Performed By: #### 5 7021-8 ####[facility]ATORYCLIA [id number] [address] MCH (RBC) [Entitic mass] 28.4 pg Normal 26.0-34.0 [facility] Comment on above: Order Comment: Speci men Type: BLOOD SPECIMENOrdering Facility: [facility] Address: [address] [place] [address] Performed By: #### 5 7021-8 ####[facility]ORATORYCLIA [id number] [address] STATES [facility] MCHC (RBC) [Mass/Vol] 30.4 g/dL Low 30.5-36.0 [facility] Comment on above: Order Comment: Speci men Type: BLOOD SPECIMENOrdering Facility: [facility] Address: [address] [place] [address] Performed By: #### 5 7021-8 ####[facility]ATORYCLIA [id number] [address] MCV (RBC) [Entitic vol] 93.5 fL Normal 80.0-100.0 [facility] Comment on above: Order Comment: Speci men Type: BLOOD SPECIMENOrdering Facility: [facility] Address: [address] [place] [address] Performed By: #### 5 7021-8 ####[facility]ATORYCLIA [id number] [address] Monocytes (Bld) [#/Vol] 0.58 10*3/uL Normal <0.87 [facility] Comment on above: Order Comment: Speci men Type: BLOOD SPECIMENOrdering Facility: [facility] Address: [address] [place] [address] Performed By: #### 5 7021-8 ####[facility]ORATORYCLIA [id number] [place] [address] [place] Monocytes/100 WBC (Bld) 6.6 % Normal [facility] Comment on above: Order Comment: Speci men Type: BLOOD SPECIMENOrdering Facility: [facility] Address: [address] [place] [address] Performed By: #### 5 7021-8 ####[facility]ATORYCLIA [id number] [address] [place] Neutrophils (Bld) [#/Vol] 6.11 10*3/uL Normal 1.45-7.50 [facility] Comment on above: Order Comment: Speci men Type: BLOOD SPECIMENOrdering Facility: [facility] Address: [address] [place] [address] Performed By: #### 5 7021-8 ####[facility]ORATORYCLIA [id number] [address] [place] Neutrophils/100 WBC (Bld) 69.7 % Normal [facility] Comment on above: Order Comment: Speci men Type: BLOOD SPECIMENOrdering Facility: [facility] Address: [address] [place] [address] Performed By: #### 5 7021-8 ####[facility]ATORYCLIA [id number] [place] [address] [place] Nucleated RBC (Bld) [#/Vol] 10*3/uL Normal <0.01 [facility] Comment on above: Order Comment: Speci men Type: BLOOD SPECIMENOrdering Facility: [facility] Address: [address] [place] [address] Performed By: #### 5 7021-8 ####[facility]ATORYCLIA [id number] [address] [place] Nucleated RBC/100 WBC (Bld) [Ratio] 0.0 /100 WBC Normal [facility] Comment on above: Order Comment: Speci men Type: BLOOD SPECIMENOrdering Facility: [facility] Address: [address] [place] [address] Performed By: #### 5 7021-8 ####[facility]ATORYCLIA [id number] [address] [place] Platelet mean volume (Bld) [Entitic vol] 11.3 fL Normal 9.0-12.7 [facility] Comment on above: Order Comment: Speci men Type: BLOOD SPECIMENOrdering Facility: [facility] Address: [address] [place] [address] Performed By: #### 5 7021-8 ####[facility]ATORYCLIA [id number] [address] [place] Platelets (Bld) [#/Vol] 238 10*3/uL Normal 150-400 [facility] Comment on above: Order Comment: Speci men Type: BLOOD SPECIMENOrdering Facility: [facility] Address: [address] [place] [address] Performed By: #### 5 7021-8 ####[facility]ATORYCLIA [id number] [address] [place] RBC (Bld) [#/Vol] 3.24 10*6/uL Low 4.20-6.00 [facility] Comment on above: Order Comment: Speci men Type: BLOOD SPECIMENOrdering Facility: [facility] Address: [address] [place] [address] Performed By: #### 5 7021-8 ####[facility]ATORYCLIA [id number] [address] [place] WBC (Bld) [#/Vol] 8.76 10*3/uL Normal 3.70-11.00 [facility] Comment on above: Order Comment: Speci men Type: BLOOD SPECIMENOrdering Facility: [facility] Address: [address] [place] [address] Performed By: #### 5 7021-8 ####[facility]ORATORYCLIA [id number] [address] [place] MRI BRAIN WO/W IVCONon 07-28 MRI BRAIN WO/W IVCON Normal [facility] Magnesium SerPl-mCncon 07-28 Magnesium [Mass/Vol] 2.5 mg/dL High 1.7-2.3 [facility] Comment on above: Order Comment: Speci men Type: BLOOD SPECIMENOrdering Facility: [facility] Address: [address] [place] [address] Performed By: #### 1 4338-8, 24393-2, 277-1, 19778-9 ####[facility]ATORYCLIA [id number] [address] [place] NURSING PROGon 07-28-2021 NURSING PROG Normal [facility] NURSING PROG Normal [facility] Phosphate SerPl-mCncon 07-28 Phosphate [Mass/Vol] 2.8 mg/dL Normal 2.7-4.8 [facility] Comment on above: Order Comment: Speci men Type: BLOOD SPECIMENOrdering Facility: [facility] Address: [address] [place] [address] Performed By: #### 1 4338-8, 69965-3, 2776-1, 24135-7 ####[facility]ATORYCLIA [id number] [address] [place] Prealbumin [Mass/Vol]on 07-06 Prealbumin Nephelometry [Mass/Vol] 25 mg/dL Normal [facility] Comment on above: Order Comment: Speci men Type: BLOOD SPECIMENOrdering Facility: [facility] Address: [address] [place] [address] Performed By: #### 1 4338-8, 86271-0, 2776-1, 37592-4 ####[facility]ATORYCLIA [id number] [place] [address] [place] aPTT PPPon 07-28-2021 aPTT Coag (PPP) [Time] 53.0 s High 23.0-32.4 [facility] Comment on above: Order Comment: Speci men Type: BLOOD SPECIMENOrdering Facility: [facility] Address: [address] [place] [address] Performed By: #### 1 4979-9 ####[facility]ATORYCLIA [id number] [address] STATES [facility] aPTT Coag (PPP) [Time] 57.2 s High 23.0-32.4 [facility] Comment on above: Order Comment: Speci men Type: BLOOD SPECIMENOrdering Facility: [facility] Address: [address] [place] [address] Performed By: #### 1 4979-9 ####[facility]ATORYCLIA [id number] [address] [place] Bacteria CSF Culton 07-28-19 Bacteria identified Cx Nom (CSF) CULTURE, CSF: No growth 14 days GRAM STAIN: No organisms seen Rare Polymorphonuclear leukocytes Rare Red Blood Cells Gram stain performed on cytospun specimen. Normal [facility] Comment on above: Performed By: #### 6 06-4 ####[facility]ATORYCLIA [id number] [address] Bacteria Spec Resp Culton Bacteria identified Respiratory culture Nom (Unsp spec) CULTURE, RESPIRATORY: Rare Normal respiratory chris present GRAM STAIN: No organisms seen Rare Polymorphonuclear leukocytes Rare Epithelial cells Normal [facility] Comment on above: Performed By: #### 3 2355-0 ####[facility]ATORYCLIA [id number] [address] [place] CASE MANAGEMon 07-27-2021 CASE MANAGEM Normal [facility] CBC W Auto Differential pane l (Bld)on 07-27-2021 Basophils (Bld) [#/Vol] 0.04 10*3/uL Normal <0.11 [facility] Comment on above: Order Comment: Speci men Type: BLOOD SPECIMENOrdering Facility: [facility] Address: [address] [place] [address] Performed By: #### 5 7021-8 ####[facility]ATORYCLIA [id number] [address] [place] Basophils/100 WBC (Bld) 0.4 % Normal [facility] Comment on above: Order Comment: Speci men Type: BLOOD SPECIMENOrdering Facility: [facility] Address: [address] [place] [address] Performed By: #### 5 7021-8 ####[facility]ORYCLIA [id number] [address] [place] Differential cell count method Nom (Bld) Auto Normal [facility] Comment on above: Order Comment: Speci men Type: BLOOD SPECIMENOrdering Facility: [facility] Address: [address] [place] [address] Performed By: #### 5 7021-8 ####[facility]ATORYCLIA [id number] [place] [address] [place] Eosinophils (Bld) [#/Vol] 0.50 10*3/uL High <0.46 [facility] Comment on above: Order Comment: Speci men Type: BLOOD SPECIMENOrdering Facility: [facility] Address: [address] [place] [address] Performed By: #### 5 7021-8 ####[facility]ORYCLIA [id number] [address] [place] Eosinophils/100 WBC (Bld) 5.2 % Normal [facility] Comment on above: Order Comment: Speci men Type: BLOOD SPECIMENOrdering Facility: [facility] Address: [address] [place] [address] Performed By: #### 5 7021-8 ####[facility]ATORYCLIA [id number] [address] Erythrocyte distribution width (RBC) [Ratio] 16.8 % High 11.5-15.0 [facility] Comment on above: Order Comment: Speci men Type: BLOOD SPECIMENOrdering Facility: [facility] Address: [address] [place] [address] Performed By: #### 5 7021-8 ####[facility]ATORYCLIA [id number] [address] Hematocrit (Bld) [Volume fraction] 29.8 % Low 39.0-51.0 [facility] Comment on above: Order Comment: Speci men Type: BLOOD SPECIMENOrdering Facility: [facility] Address: [address] [place] [address] Performed By: #### 5 7021-8 ####[facility]ATORYCLIA [id number] [address] Hemoglobin (Bld) [Mass/Vol] 9.0 g/dL Low 13.0-17.0 [facility] Comment on above: Order Comment: Speci men Type: BLOOD SPECIMENOrdering Facility: [facility] Address: [address] [place] [address] Performed By: #### 5 7021-8 ####[facility]ORYCLIA [id number] [address] IMMATURE GRAN % 0.6 % Normal [facility] Comment on above: Order Comment: Speci men Type: BLOOD SPECIMENOrdering Facility: [facility] Address: [address] [place] [address] Performed By: #### 5 7021-8 ####[facility]ORYCLIA [id number] [address] IMMATURE GRAN ABS 0.06 k/uL Normal <0.10 [facility] Comment on above: Order Comment: Speci men Type: BLOOD SPECIMENOrdering Facility: [facility] Address: [address] [place] [address] Performed By: #### 5 7021-8 ####[facility]ATORYCLIA [id number] [address] Lymphocytes (Bld) [#/Vol] 1.73 10*3/uL Normal 1.00-4.00 [facility] Comment on above: Order Comment: Speci men Type: BLOOD SPECIMENOrdering Facility: [facility] Address: [address] [place] [address] Performed By: #### 5 7021-8 ####[facility]ATORYCLIA [id number] [address] Lymphocytes/100 WBC (Bld) 17.9 % Normal [facility] Comment on above: Order Comment: Speci men Type: BLOOD SPECIMENOrdering Facility: [facility] Address: [address] [place] [address] Performed By: #### 5 7021-8 ####[facility]ATORYCLIA [id number] [address] MCH (RBC) [Entitic mass] 28.1 pg Normal 26.0-34.0 [facility] Comment on above: Order Comment: Speci men Type: BLOOD SPECIMENOrdering Facility: [facility] Address: [address] [place] [address] Performed By: #### 5 7021-8 ####[facility]ATORYCLIA [id number] [address] [facility] MCHC (RBC) [Mass/Vol] 30.2 g/dL Low 30.5-36.0 [facility] Comment on above: Order Comment: Speci men Type: BLOOD SPECIMENOrdering Facility: [facility] Address: [address] [place] [address] Performed By: #### 5 7021-8 ####[facility]ORATORYCLIA [id number] [address] OF [facility] MCV (RBC) [Entitic vol] 93.1 fL Normal 80.0-100.0 [facility] Comment on above: Order Comment: Speci men Type: BLOOD SPECIMENOrdering Facility: [facility] Address: [address] [place] [address] Performed By: #### 5 7021-8 ####[facility]ATORYCLIA [id number] [address] [place] Monocytes (Bld) [#/Vol] 0.59 10*3/uL Normal <0.87 [facility] Comment on above: Order Comment: Speci men Type: BLOOD SPECIMENOrdering Facility: [facility] Address: [address] [place] [address] Performed By: #### 5 7021-8 ####[facility] LABORATORYCLIA [id number] [address] [place] Monocytes/100 WBC (Bld) 6.1 % Normal [facility] Comment on above: Order Comment: Speci men Type: BLOOD SPECIMENOrdering Facility: [facility] Address: [address] [place] [address] Performed By: #### 5 7021-8 ####[facility]ORATORYCLIA [id number] [place] [address] [place] Neutrophils (Bld) [#/Vol] 6.75 10*3/uL Normal 1.45-7.50 [facility] Comment on above: Order Comment: Speci men Type: BLOOD SPECIMENOrdering Facility: [facility] Address: [address] [place] [address] Performed By: #### 5 7021-8 ####[facility]ATORYCLIA [id number] [address] [place] Neutrophils/100 WBC (Bld) 69.8 % Normal [facility] Comment on above: Order Comment: Speci men Type: BLOOD SPECIMENOrdering Facility: [facility] Address: [address] [place] [address] Performed By: #### 5 7021-8 ####[facility]ATORYCLIA [id number] [place] [address] [place] Nucleated RBC (Bld) [#/Vol] 10*3/uL Normal <0.01 [facility] Comment on above: Order Comment: Speci men Type: BLOOD SPECIMENOrdering Facility: [facility] Address: [address] [place] [address] Performed By: #### 5 7021-8 ####[facility]ORATORYCLIA [id number] [place] [address] [place] Nucleated RBC/100 WBC (Bld) [Ratio] 0.0 /100 WBC Normal [facility] Comment on above: Order Comment: Speci men Type: BLOOD SPECIMENOrdering Facility: [facility] Address: [address] [place] [address] Performed By: #### 5 7021-8 ####[facility]ORATORYCLIA [id number] [place] [address] [place] Platelet mean volume (Bld) [Entitic vol] 11.3 fL Normal 9.0-12.7 [facility] Comment on above: Order Comment: Speci men Type: BLOOD SPECIMENOrdering Facility: [facility] Address: [address] [place] [address] Performed By: #### 5 7021-8 ####[facility]ATORYCLIA [id number] [place] [address] [place] Platelets (Bld) [#/Vol] 227 10*3/uL Normal 150-400 [facility] Comment on above: Order Comment: Speci men Type: BLOOD SPECIMENOrdering Facility: [facility] Address: [address] Performed By: #### 5 7021-8 ####[facility]ATORYCLIA [id number] [place] [address] [place] RBC (Bld) [#/Vol] 3.20 10*6/uL Low 4.20-6.00 [facility] Comment on above: Order Comment: Speci men Type: BLOOD SPECIMENOrdering Facility: [facility] Address: [address] [place] [address] Performed By: #### 5 7021-8 ####[facility]ATORYCLIA [id number] [place] [address] [place] WBC (Bld) [#/Vol] 9.67 10*3/uL Normal 3.70-11.00 [facility] Comment on above: Order Comment: Speci men Type: BLOOD SPECIMENOrdering Facility: [facility] Address: [address] [place] [address] Performed By: #### 5 7021-8 ####[facility] LABORATORYCLIA [id number] [address] [place] CONSULT PROGon 07-27-2021 CONSULT PROG Normal [facility] CSF MANUAL DIFFon 07-27-2021 DIF TTL, CSF 100 cells counted Normal [facility] Comment on above: Order Comment: Speci men Type: CEREBROSPINAL FLUIDOrdering Facility: [facility] Address: [address] [place] [address] Performed By: #### L [id number], [id number], [id number] ####[facility]ORATORYCLIA [id number] [place] [address] [place] LYMPH%, CSF 75 % Normal 50-90 [facility] Comment on above: Order Comment: Speci men Type: CEREBROSPINAL FLUIDOrdering Facility: [facility] Address: [address] [place] [address] Performed By: #### L [id number], [id number], [id number] ####[facility]ATORYCLIA [id number] [place] [address] [place] MONO%, CSF 22 % Normal 10-50 [facility] Comment on above: Order Comment: Speci men Type: CEREBROSPINAL FLUIDOrdering Facility: [facility] Address: [address] [place] [address] Performed By: #### L [id number], [id number], [id number] ####[facility]ORATORYCLIA [id number] [address] [place] NEUT%, CSF 2 % Normal 0-3 [facility] Comment on above: Order Comment: Speci men Type: CEREBROSPINAL FLUIDOrdering Facility: [facility] Address: [address] [place] [address] Performed By: #### L [id number], 96385-0, [id number] ####[facility] LABORATORYCLIA [id number] [address] STATES OF [facility] OTHER CL%, CSF 1 % Normal [facility] Comment on above: Order Comment: Speci men Type: CEREBROSPINAL FLUIDOrdering Facility: [facility] Address: [address] [place] [address] Result Comment: Path ologist review of microscopy results to follow Performed By: #### L [id number], 17725-0, [id number] ####[facility] LABORATORYCLIA [id number] [address] CSF PATHOLOGIST INTERP (LAB REFLEX ORDER-NO BILL)on 07-27-2021 CSF STAFF REVIEW Negative Normal [facility] Comment on above: Order Comment: Speci men Type: CEREBROSPINAL FLUIDOrdering Facility: [facility] Address: [address] [place] [address] Performed By: #### L [id number], 61513-4, [id number] ####[facility] LABORATORYCLIA [id number] [address] Pathologist name Reviewed by Amador Stevens MD [facility] Comment on above: Order Comment: Speci men Type: CEREBROSPINAL FLUIDOrdering Facility: [facility] Address: [address] [place] [address] Performed By: #### L OR5066, 47216-1, [id number] ####[facility]ORATORYCLIA [id number] [address] Cell count panel (CSF)on Clarity (CSF) Clear Normal Clear [facility] Comment on above: Order Comment: Speci men Type: CEREBROSPINAL FLUIDOrdering Facility: [facility] Address: [address] [address] Performed By: #### L [id number], 42363-5, [id number] ####[facility]ORATORYCLIA [id number] [address] Clarity (Unsp spec) Not Indicated Normal Clear [facility] Comment on above: Order Comment: Speci men Type: CEREBROSPINAL FLUIDOrdering Facility: [facility] Address: [address] [place] [address] Performed By: #### L BG1961, 44739-2, [id number] ####[facility] LABORATORYCLIA [id number] [address] Color (CSF) Colorless Normal Colorless [facility] Comment on above: Order Comment: Speci men Type: CEREBROSPINAL FLUIDOrdering Facility: [facility] Address: [address] [place] [address] Performed By: #### L [id number], 03595-6, [id number] ####[facility]ATORYCLIA [id number] [address] Color (Spun CSF) Not Indicated Normal Colorless [facility] Comment on above: Order Comment: Speci men Type: CEREBROSPINAL FLUIDOrdering Facility: [facility] Address: [address] [place] [address] Performed By: #### L [id number], 75447-7, [id number] ####[facility]ATORYCLIA [id number] [address] CSF [employer] Normal [facility] Comment on above: Order Comment: Speci men Type: CEREBROSPINAL FLUIDOrdering Facility: [facility] Address: [address] [place] [address] Performed By: #### L [id number], 69918-3, [id number] ####[facility]ATORYCLIA [id number] [address] RBC Manual cnt (CSF) [#/Vol] 39 cells/uL High 0-5 [facility] Comment on above: Order Comment: Speci men Type: CEREBROSPINAL FLUIDOrdering Facility: [facility] Address: [address] [place] [address] Performed By: #### L SC5677, 58720-9, [id number] ####[facility] LABORATORYCLIA [id number] [address] [place] WBC Manual cnt (CSF) [#/Vol] 14 cells/uL High 0-5 [facility] Comment on above: Order Comment: Speci men Type: CEREBROSPINAL FLUIDOrdering Facility: [facility] Address: [address] [place] [address] Performed By: #### L CD7332, 73865-0, [id number] ####[facility] LABORATORYCLIA [id number] [address] [place] Glucose [facility] 2 Glucose (CSF) [Mass/Vol] 64 mg/dL Normal 40-70 [facility] Comment on above: Order Comment: Speci men Type: CEREBROSPINAL FLUIDOrdering Facility: [facility] Address: [address] [place] [address] Result Comment: Lumb ar CSF glucose values of healthy patients are approximately 60% of the plasma values and must always be compared with a concurrently measured plasma value for adequate clinical interpretation.References: 1. Glucose HK (GLUC3) [package insert V 12.0 [place]]. [employer], [place], [place]. September 2015. 2. Michelle Moore, Loki, H. (2015). Chapter 7: Glucose and Lactate. FGarfield Alcocer al.(eds.), Cerebrospinal Fluid in Clinical Neurology. [place]: [employer]. Performed By: #### 2 342-4, 2880-3 ####[facility] LABORATORYCLIA [id number] [place] [address] [place] NUTRITIONon 07-27-2021 NUTRITION Normal [facility] Prot CSF-ncon 07-27-2021 Protein (CSF) [Mass/Vol] 58 mg/dL High 15-45 [facility] Comment on above: Order Comment: Speci men Type: CEREBROSPINAL FLUIDOrdering Facility: [facility] Address: [address] [place] [address] Performed By: #### 2 342-4, 2880-3 ####[facility]ORATORYCLIA [id number] [address] aPTT PPPon 07-27-2021 aPTT Coag (PPP) [Time] 68.4 s High 23.0-32.4 [facility] Comment on above: Order Comment: Speci men Type: BLOOD SPECIMENOrdering Facility: [facility] Address: [address] [place] [address] Performed By: #### 1 4979-9 ####[facility]ORATORYCLIA [id number] [address] aPTT Coag (PPP) [Time] 51.3 s High 23.0-32.4 [facility] Comment on above: Order Comment: Speci men Type: BLOOD SPECIMENOrdering Facility: [facility] Address: [address] [place] [address] Performed By: #### 1 4979-9 ####[facility] LABORATORYCLIA [id number] [address] ALLIED HEALTHon 07-26-2021 ALLIED HEALTH HNO ID: [id number] Author: Stephanie Maldonado, board certified orthodontist Service: Radiology Author Type: Entry Level Chemist Type: Allied Health Filed: 07/26/2021 4:10 PM Note Text: Spoke with nurse. Pt getting new EVD today. Try tomorrow. Normal [facility] Bacteria CSF Culton 07-27-19 22 Bacteria identified Cx Nom (CSF) Abnormal [facility] Comment on above: Performed By: #### 6 06-4 ####[facility] LABORATORYCLIA [id number] [address] Basic metabolic 2000 panelon 07-26-2021 Anion gap [Moles/Vol] 6 mmol/L Low 9-18 [facility] Comment on above: Order Comment: Speci men Type: BLOOD SPECIMENOrdering Facility: [facility] Address: [address] [address] Performed By: #### 2 4321-2 ####[facility]ATORYCLIA [id number] [place] [address] [place] Calcium [Mass/Vol] 9.2 mg/dL Normal 8.5-10.2 [facility] Comment on above: Order Comment: Speci men Type: BLOOD SPECIMENOrdering Facility: [facility] Address: [address] [place] [address] Performed By: #### 2 4321-2 ####[facility] LABORATORYCLIA [id number] [address] [place] Chloride [Moles/Vol] 99 mmol/L Normal 97-105 [facility] Comment on above: Order Comment: Speci men Type: BLOOD SPECIMENOrdering Facility: [facility] Address: [address] [place] [address] Performed By: #### 2 4321-2 ####[facility]ORATORYCLIA [id number] [address] [place] CO2 [Moles/Vol] 32 mmol/L High 22-30 [facility] Comment on above: Order Comment: Speci men Type: BLOOD SPECIMENOrdering Facility: [facility] Address: [address] [place] [address] Performed By: #### 2 4321-2 ####[facility] LABORATORYCLIA [id number] [place] [address] [place] Creatinine [Mass/Vol] 0.74 mg/dL Normal 0.73-1.22 [facility] Comment on above: Order Comment: Speci men Type: BLOOD SPECIMENOrdering Facility: [facility] Address: [address] [place] [address] Performed By: #### 2 4321-2 ####[facility] LABORATORYCLIA [id number] [address] [place] ESTIMATED GLOMERULAR FILTRATION RATE 98 mL/min/1.73m??? Normal >=60 [facility] Comment on above: Order Comment: Shira feldman Type: BLOOD SPECIMENOrdering Facility: [facility] Address: [address] [address] Result Comment: Luzmaria mated Glomerular Filtration Rate [...] actual GFR. Performed By: #### 2 4321-2 ####[facility] LABORATORYCLIA [id number] [place] [address] [place] Glucose [Mass/Vol] 126 mg/dL High 74-99 [facility] Comment on above: Order Comment: Shira feldman Type: BLOOD SPECIMENOrdering Facility: [facility] Address: [address] [place] [address] Result Comment: The [place] Diabetes Association (ADA) provides guidance for cutoff [...] Standards of Medical Care in Diabetes 2016, [employer] Diabetes Association. Diabetes Care. 2016.39(Suppl 1). Performed By: #### 2 4321-2 ####[facility] LABORATORYCLIA [id number] [place] [address] [place] Potassium [Moles/Vol] 4.2 mmol/L Normal 3.7-5.1 [facility] Comment on above: Order Comment: Shira feldman Type: BLOOD SPECIMENOrdering Facility: [facility] Address: [address] [address] Performed By: #### 2 4321-2 ####[facility] LABORATORYCLIA [id number] [address] STATES [facility] Sodium [Moles/Vol] 137 mmol/L Normal 136-144 [facility] Comment on above: Order Comment: Speci men Type: BLOOD SPECIMENOrdering Facility: [facility] Address: [address] [place] [address] Performed By: #### 2 4321-2 ####[facility]ORATORYCLIA [id number] [address] STATES [facility] Urea nitrogen [Mass/Vol] 36 mg/dL High 9-24 [facility] Comment on above: Order Comment: Speci men Type: BLOOD SPECIMENOrdering Facility: [facility] Address: [address] [place] [address] Performed By: #### 2 4321-2 ####[facility]ORATORYCLIA [id number] [address] STATES [facility] CBC W Auto Differential pane l (Bld)on 07-26-2021 Basophils (Bld) [#/Vol] 0.04 10*3/uL Normal <0.11 [facility] Comment on above: Order Comment: Speci men Type: BLOOD SPECIMENOrdering Facility: [facility] Address: [address] [place] [address] Performed By: #### 5 7021-8 ####[facility]ORATORYCLIA [id number] [address] STATES [facility] Basophils/100 WBC (Bld) 0.4 % Normal [facility] Comment on above: Order Comment: Speci men Type: BLOOD SPECIMENOrdering Facility: [facility] Address: [address] [place] [address] Performed By: #### 5 7021-8 ####[facility]ORATORYCLIA [id number] [address] Differential cell count method Nom (Bld) Auto Normal [facility] Comment on above: Order Comment: Speci men Type: BLOOD SPECIMENOrdering Facility: [facility] Address: [address] [address] Performed By: #### 5 7021-8 ####[facility]ORATORYCLIA [id number] [address] [place] Eosinophils (Bld) [#/Vol] 0.63 10*3/uL High <0.46 [facility] Comment on above: Order Comment: Speci men Type: BLOOD SPECIMENOrdering Facility: [facility] Address: [address] [place] [address] Performed By: #### 5 7021-8 ####[facility]ORATORYCLIA [id number] [address] Eosinophils/100 WBC (Bld) 5.8 % Normal [facility] Comment on above: Order Comment: Speci men Type: BLOOD SPECIMENOrdering Facility: [facility] Address: [address] [place] [address] Performed By: #### 5 7021-8 ####[facility]ORATORYCLIA [id number] [address] STATES [facility] Erythrocyte distribution width (RBC) [Ratio] 16.8 % High 11.5-15.0 [facility] Comment on above: Order Comment: Speci men Type: BLOOD SPECIMENOrdering Facility: [facility] Address: [address] [place] [address] Performed By: #### 5 7021-8 ####[facility]ORATORYCLIA [id number] [address] Hematocrit (Bld) [Volume fraction] 31.2 % Low 39.0-51.0 [facility] Comment on above: Order Comment: Speci men Type: BLOOD SPECIMENOrdering Facility: [facility] Address: [address] [place] [address] Performed By: #### 5 7021-8 ####[facility]ORATORYCLIA [id number] [address] [place] Hemoglobin (Bld) [Mass/Vol] 9.1 g/dL Low 13.0-17.0 [facility] Comment on above: Order Comment: Speci men Type: BLOOD SPECIMENOrdering Facility: [facility] Address: [address] [place] [address] Performed By: #### 5 7021-8 ####[facility]ATORYCLIA [id number] [address] IMMATURE GRAN % 0.6 % Normal [facility] Comment on above: Order Comment: Speci men Type: BLOOD SPECIMENOrdering Facility: [facility] Address: [address] [place] [address] Performed By: #### 5 7021-8 ####[facility]ORYCLIA [id number] [address] IMMATURE GRAN ABS 0.07 k/uL Normal <0.10 [facility] Comment on above: Order Comment: Speci men Type: BLOOD SPECIMENOrdering Facility: [facility] Address: [address] [place] [address] Performed By: #### 5 7021-8 ####[facility]ORYCLIA [id number] [address] [place] Lymphocytes (Bld) [#/Vol] 2.16 10*3/uL Normal 1.00-4.00 [facility] Comment on above: Order Comment: Speci men Type: BLOOD SPECIMENOrdering Facility: [facility] Address: [address] [place] [address] Performed By: #### 5 7021-8 ####[facility]ATORYCLIA [id number] [address] Lymphocytes/100 WBC (Bld) 20.0 % Normal [facility] Comment on above: Order Comment: Speci men Type: BLOOD SPECIMENOrdering Facility: [facility] Address: [address] [place] [address] Performed By: #### 5 7021-8 ####[facility]ATORYCLIA [id number] [address] MCH (RBC) [Entitic mass] 27.7 pg Normal 26.0-34.0 [facility] Comment on above: Order Comment: Speci men Type: BLOOD SPECIMENOrdering Facility: [facility] Address: [address] [place] [address] Performed By: #### 5 7021-8 ####[facility]ATORYCLIA [id number] [address] [place] MCHC (RBC) [Mass/Vol] 29.2 g/dL Low 30.5-36.0 [facility] Comment on above: Order Comment: Speci men Type: BLOOD SPECIMENOrdering Facility: [facility] Address: [address] [place] [address] Performed By: #### 5 7021-8 ####[facility]ORATORYCLIA [id number] [address] OF [facility] MCV (RBC) [Entitic vol] 95.1 fL Normal 80.0-100.0 [facility] Comment on above: Order Comment: Speci men Type: BLOOD SPECIMENOrdering Facility: [facility] Address: [address] [place] [address] Performed By: #### 5 7021-8 ####[facility]ATORYCLIA [id number] [address] OF [facility] Monocytes (Bld) [#/Vol] 0.63 10*3/uL Normal <0.87 [facility] Comment on above: Order Comment: Speci men Type: BLOOD SPECIMENOrdering Facility: [facility] Address: [address] [place] [address] Performed By: #### 5 7021-8 ####[facility]ORYCLIA [id number] [address] Monocytes/100 WBC (Bld) 5.8 % Normal [facility] Comment on above: Order Comment: Speci men Type: BLOOD SPECIMENOrdering Facility: [facility] Address: [address] [address] Performed By: #### 5 7021-8 ####[facility]ORYCLIA [id number] [address] [place] Neutrophils (Bld) [#/Vol] 7.25 10*3/uL Normal 1.45-7.50 [facility] Comment on above: Order Comment: Speci men Type: BLOOD SPECIMENOrdering Facility: [facility] Address: [address] [place] [address] Performed By: #### 5 7021-8 ####[facility]ORATORYCLIA [id number] [address] STATES [facility] Neutrophils/100 WBC (Bld) 67.4 % Normal [facility] Comment on above: Order Comment: Speci men Type: BLOOD SPECIMENOrdering Facility: [facility] Address: [address] [place] [address] Performed By: #### 5 7021-8 ####[facility]ORYCLIA [id number] [address] [place] Nucleated RBC (Bld) [#/Vol] 10*3/uL Normal <0.01 [facility] Comment on above: Order Comment: Speci men Type: BLOOD SPECIMENOrdering Facility: [facility] Address: [address] [place] [address] Performed By: #### 5 7021-8 ####[facility]ORYCLIA [id number] [address] [place] Nucleated RBC/100 WBC (Bld) [Ratio] 0.0 /100 WBC Normal [facility] Comment on above: Order Comment: Speci men Type: BLOOD SPECIMENOrdering Facility: [facility] Address: [address] [place] [address] Performed By: #### 5 7021-8 ####[facility]ATORYCLIA [id number] [address] [place] Platelet mean volume (Bld) [Entitic vol] 11.2 fL Normal 9.0-12.7 [facility] Comment on above: Order Comment: Speci men Type: BLOOD SPECIMENOrdering Facility: [facility] Address: [address] [place], [place] [address] Performed By: #### 5 7021-8 ####[facility]ORATORYCLIA [id number] [address] OF [facility] Platelets (Bld) [#/Vol] 245 10*3/uL Normal 150-400 [facility] Comment on above: Order Comment: Speci men Type: BLOOD SPECIMENOrdering Facility: [facility] Address: [address] [place], [place] [address] Performed By: #### 5 7021-8 ####[facility]ORATORYCLIA [id number] [address] OF [facility] RBC (Bld) [#/Vol] 3.28 10*6/uL Low 4.20-6.00 [facility] Comment on above: Order Comment: Speci men Type: BLOOD SPECIMENOrdering Facility: [facility] Address: [address] [place], [place] [address] Performed By: #### 5 7021-8 ####[facility]ATORYCLIA [id number] [address] WBC (Bld) [#/Vol] 10.78 10*3/uL Normal 3.70-11.00 [facility] Comment on above: Order Comment: Speci men Type: BLOOD SPECIMENOrdering Facility: [facility] Address: [address] [place], [place] [address] Performed By: #### 5 7021-8 ####[facility]ORATORYCLIA [id number] [address] CSF MANUAL DIFFon 07-26-2021 DIF TTL, CSF 100 cells counted Normal [facility] Comment on above: Order Comment: Speci men Type: CEREBROSPINAL FLUIDOrdering Facility: [facility] Address: [address] [place] [address] Performed By: #### 3 4563-7, [id number], [id number] ####[facility]ORYCLIA [id number] [place] [address] [place] LYMPH%, CSF 26 % Low 50-90 [facility] Comment on above: Order Comment: Speci men Type: CEREBROSPINAL FLUIDOrdering Facility: [facility] Address: [address] [place] [address] Performed By: #### 3 4563-7, [id number], [id number] ####[facility]ATORYCLIA [id number] [place] [address] [place] MACRO%, CSF 10 % High <1 [facility] Comment on above: Order Comment: Speci men Type: CEREBROSPINAL FLUIDOrdering Facility: [facility] Address: [address] [place] [address] Performed By: #### 3 4563-7, [id number], [id number] ####[facility]ORYCLIA [id number] [place] [address] [place] MONO%, CSF 20 % Normal 10-50 [facility] Comment on above: Order Comment: Speci men Type: CEREBROSPINAL FLUIDOrdering Facility: [facility] Address: [address] [place] [address] Performed By: #### 3 4563-7, [id number], [id number] ####[facility]ATORYCLIA [id number] [place] [address] [place] NEUT%, CSF 40 % High 0-3 [facility] Comment on above: Order Comment: Speci men Type: CEREBROSPINAL FLUIDOrdering Facility: [facility] Address: [address] [place] [address] Performed By: #### 3 4563-7, [id number], [id number] ####[facility]ATORYCLIA [id number] [address] OF [place] OTHER CL%, CSF 2 % Normal [facility] Comment on above: Order Comment: Speci men Type: CEREBROSPINAL FLUIDOrdering Facility: [facility] Address: [address] [address] Result Comment: Path review to follow. Performed By: #### 3 4563-7, [id number], [id number] ####[facility]ATORYCLIA [id number] [address] REAC LYMPH %, CSF 2 % Normal [facility] Comment on above: Order Comment: Speci men Type: CEREBROSPINAL FLUIDOrdering Facility: [facility] Address: [facility] [address] Performed By: #### 3 4563-7, [id number], [id number] ####[facility]ORATORYCLIA [id number] [address] CSF PATHOLOGIST INTERP (LAB REFLEX ORDER-NO BILL)on 07-26-2021 CSF STAFF REVIEW Negative for maligna nt cells. Rare bacteria present, cocci in pairs and chains. Correlation with CSF cultures is recommended. Normal [facility] Comment on above: Order Comment: Speci men Type: CEREBROSPINAL FLUIDOrdering Facility: [facility] Address: [address] [place] [address] Performed By: #### 3 4563-7, [id number], [id number] ####[facility]ORATORYCLIA [id number] [address] Pathologist name Reviewed by Amador Stevens MD [facility] Comment on above: Order Comment: Speci men Type: CEREBROSPINAL FLUIDOrdering Facility: [facility] Address: [address] [address] Performed By: #### 3 4563-7, [id number], [id number] ####[facility]ATORYCLIA [id number] [address] Cell count panel (CSF)on Clarity (CSF) Slightly Cloudy Abnormal Clear [facility] Comment on above: Order Comment: Speci men Type: CEREBROSPINAL FLUIDOrdering Facility: [facility] Address: [address] [address] Performed By: #### 3 4563-7, [id number], [id number] ####[facility]ORYCLIA [id number] [address] Clarity (Unsp spec) Clear Normal Clear [facility] Comment on above: Order Comment: Speci men Type: CEREBROSPINAL FLUIDOrdering Facility: [facility] Address: [address] [place] [address] Performed By: #### 3 4563-7, [id number], [id number] ####[facility]ORATORYCLIA [id number] [address] Color (CSF) Colorless Normal Colorless [facility] Comment on above: Order Comment: Speci men Type: CEREBROSPINAL FLUIDOrdering Facility: [facility] Address: [address] [place] [address] Performed By: #### 3 4563-7, [id number], [id number] ####[facility]ORATORYCLIA [id number] [address] Color (Spun CSF) Not Indicated Normal Colorless [facility] Comment on above: Order Comment: Speci men Type: CEREBROSPINAL FLUIDOrdering Facility: [facility] Address: [address] [place] [address] Performed By: #### 3 4563-7, [id number], [id number] ####[facility]ORATORYCLIA [id number] [address] CSF TUBE NUMBER [employer] Normal [facility] Comment on above: Order Comment: Speci men Type: CEREBROSPINAL FLUIDOrdering Facility: [facility] Address: [address] [place] [address] Performed By: #### 3 4563-7, NCL1205, [id number] ####[facility]ATORYCLIA [id number] [address] RBC Manual cnt (CSF) [#/Vol] 1 cells/uL Normal 0-5 [facility] Comment on above: Order Comment: Speci men Type: CEREBROSPINAL FLUIDOrdering Facility: [facility] Address: [address] [place] [address] Performed By: #### 3 4563-7, [id number], [id number] ####[facility] LABORATORYCLIA [id number] [address] STATES OF [facility] WBC Manual cnt (CSF) [#/Vol] 50 cells/uL High 0-5 [facility] Comment on above: Order Comment: Speci men Type: CEREBROSPINAL FLUIDOrdering Facility: [facility] Address: [address] [place] [address] Performed By: #### 3 4563-7, [id number], [id number] ####[facility] LABORATORYCLIA [id number] [address] Glucose CSF-ncon Glucose (CSF) [Mass/Vol] 64 mg/dL Normal 40-70 [facility] Comment on above: Order Comment: Speci men Type: CEREBROSPINAL FLUIDOrdering Facility: [facility] Address: [address] [place] [address] Result Comment: Lumb ar CSF glucose values of healthy patients are approximately 60% of the plasma values and must always be compared with a concurrently measured plasma value for adequate clinical interpretation.References: 1. Glucose HK (GLUC3) [package insert V 12.0 [place]]. [employer], [place], [place]. September 2015. 2. Michelle Moore, Loki, H. (2015). Chapter 7: Glucose and Lactate. FGarfield Alcocer al.(eds.), Cerebrospinal Fluid in Clinical Neurology. [place]: [employer]. Performed By: #### 2 880-3, 2342-4 ####[facility] LABORATORYCLIA [id number] [address] [place] Magnesium SerPl-ncon 07-26 Magnesium [Mass/Vol] 2.3 mg/dL Normal 1.7-2.3 [facility] Comment on above: Order Comment: Speci men Type: BLOOD SPECIMENOrdering Facility: [facility] Address: [address] [place] [address] Performed By: #### 1 9123-9, 2777-1, 6-3 ####[facility]ORATORYCLIA [id number] [address] NURSING PROGon 07-26-2021 NURSING PROG Normal [facility] Phosphate SerPl-mCncon 07-26 Phosphate [Mass/Vol] 2.6 mg/dL Low 2.7-4.8 [facility] Comment on above: Order Comment: Speci men Type: BLOOD SPECIMENOrdering Facility: [facility] Address: [address] [place] [address] Performed By: #### 1 9123-9, 2777-1, 3015-3 ####[facility] LABORATORYCLIA [id number] [address] Prot CSF-mCncon 07-26-2021 Protein (CSF) [Mass/Vol] 64 mg/dL High 15-45 [facility] Comment on above: Order Comment: Speci men Type: CEREBROSPINAL FLUIDOrdering Facility: [facility] Address: [address] [place] [address] Performed By: #### 2 880-3, 2342-4 ####[facility]ORATORYCLIA [id number] [address] THERAPY NTon 07-26-2021 THERAPY NT Normal [facility] TSH SerPl-aCncon 07-26-2021 TSH Qn 1.470 m[IU]/L Normal 0.270-4.200 [facility] Comment on above: Order Comment: Speci men Type: BLOOD SPECIMENOrdering Facility: [facility] Address: [address] [place] [address] Performed By: #### 1 9123-9, 2777-1, 6-3 ####[facility]ORATORYCLIA [id number] [address] [place] VITAMIN B12 BLOODon 07-27-19 Cobalamin (Vitamin B12) [Mass/Vol] 934 pg/mL Normal 232-1,245 [facility] Comment on above: Order Comment: Speci men Type: BLOOD SPECIMENOrdering Facility: [facility] Address: [address] [place] [address] Performed By: #### B 12 ####[facility]ORATORYCLIA [id number] [address] aPTT PPPon 07-26-2021 aPTT Coag (PPP) [Time] 53.6 s High 23.0-32.4 [facility] Comment on above: Order Comment: Speci men Type: BLOOD SPECIMENOrdering Facility: [facility] Address: [address] [place] [address] Performed By: #### 1 4979-9 ####[facility]ORATORYCLIA [id number] [address] aPTT Coag (PPP) [Time] 44.9 s High 23.0-32.4 [facility] Comment on above: Order Comment: Speci men Type: BLOOD SPECIMENOrdering Facility: [facility] Address: [address] [place] [address] Performed By: #### 1 4979-9 ####[facility] LABORATORYCLIA [id number] [address] ALLIED HEALTHon 07-25-2021 ALLIED HEALTH HNO ID: [id number] Author: RT Rajwinder(R) Service: Radiology Author Type: Technologist Type: Allied Health Filed: 07/25/2021 1:37 PM Note Text: Called floor for MRI screening form [id number] Normal [facility] Bacteria Bld Culton 07-26-19 Bacteria identified Cx Nom (Bld) CULTURE, BLOOD: No growth 5 days Normal [facility] Comment on above: Performed By: #### 6 00-7 ####[facility]ORATORYCLIA [id number] [address] Bacteria identified Cx Nom (Bld) CULTURE, BLOOD: No growth 5 days Normal [facility] Comment on above: Performed By: #### 6 00-7 ####[facility]ATORYCLIA [id number] [address] STATES [place] CASE MANAGEMon 07-25-2021 CASE MANAGEM Normal [facility] CBC W Auto Differential pane l (Bld)on 07-25-2021 Basophils (Bld) [#/Vol] 0.06 10*3/uL Normal <0.11 [facility] Comment on above: Order Comment: Speci men Type: BLOOD SPECIMENOrdering Facility: [facility] Address: [address] [place] [address] Performed By: #### 5 7021-8 ####[facility]ATORYCLIA [id number] [address] Basophils/100 WBC (Bld) 0.6 % Normal [facility] Comment on above: Order Comment: Speci men Type: BLOOD SPECIMENOrdering Facility: [facility] Address: [address] [place] [address] Performed By: #### 5 7021-8 ####[facility]ORATORYCLIA [id number] [address] Differential cell count method Nom (Bld) Auto Normal [facility] Comment on above: Order Comment: Speci men Type: BLOOD SPECIMENOrdering Facility: [facility] Address: [address] [place] [address] Performed By: #### 5 7021-8 ####[facility]ATORYCLIA [id number] [address] STATES [place] Eosinophils (Bld) [#/Vol] 0.26 10*3/uL Normal <0.46 [facility] Comment on above: Order Comment: Speci men Type: BLOOD SPECIMENOrdering Facility: [facility] Address: [address] [place] [address] Performed By: #### 5 7021-8 ####[facility]ORATORYCLIA [id number] [address] STATES [place] Eosinophils/100 WBC (Bld) 2.5 % Normal [facility] Comment on above: Order Comment: Speci men Type: BLOOD SPECIMENOrdering Facility: [facility] Address: [address] [place] [address] Performed By: #### 5 7021-8 ####[facility]ORATORYCLIA [id number] [address] Erythrocyte distribution width (RBC) [Ratio] 16.9 % High 11.5-15.0 [facility] Comment on above: Order Comment: Speci men Type: BLOOD SPECIMENOrdering Facility: [facility] Address: [address] [place] [address] Performed By: #### 5 7021-8 ####[facility]ORATORYCLIA [id number] [address] Hematocrit (Bld) [Volume fraction] 29.6 % Low 39.0-51.0 [facility] Comment on above: Order Comment: Speci men Type: BLOOD SPECIMENOrdering Facility: [facility] Address: [address] [place] [address] Performed By: #### 5 7021-8 ####[facility]ORATORYCLIA [id number] [address] Hemoglobin (Bld) [Mass/Vol] 8.8 g/dL Low 13.0-17.0 [facility] Comment on above: Order Comment: Speci men Type: BLOOD SPECIMENOrdering Facility: [facility] Address: [address] [place] [address] Performed By: #### 5 7021-8 ####[facility]ORATORYCLIA [id number] [address] [place] IMMATURE GRAN % 0.6 % Normal [facility] Comment on above: Order Comment: Speci men Type: BLOOD SPECIMENOrdering Facility: [facility] Address: [address] [place] [address] Performed By: #### 5 7021-8 ####[facility]ORATORYCLIA [id number] IMMATURE GRAN ABS 0.06 k/uL Normal <0.10 [facility] Comment on above: Order Comment: Speci men Type: BLOOD SPECIMENOrdering Facility: [facility] Address: [address] [place] [address] Performed By: #### 5 7021-8 ####[facility] LABORATORYCLIA [id number] [address] OF [facility] Lymphocytes (Bld) [#/Vol] 2.15 10*3/uL Normal 1.00-4.00 [facility] Comment on above: Order Comment: Speci men Type: BLOOD SPECIMENOrdering Facility: [facility] Address: [address] [place] [address] Performed By: #### 5 7021-8 ####[facility]ORATORYCLIA [id number] [address] Lymphocytes/100 WBC (Bld) 20.7 % Normal [facility] Comment on above: Order Comment: Speci men Type: BLOOD SPECIMENOrdering Facility: [facility] Address: [address] [place] [address] Performed By: #### 5 7021-8 ####[facility]ORATORYCLIA [id number] [address] MCH (RBC) [Entitic mass] 28.2 pg Normal 26.0-34.0 [facility] Comment on above: Order Comment: Speci men Type: BLOOD SPECIMENOrdering Facility: [facility] Address: [address] [place] [address] Performed By: #### 5 7021-8 ####[facility]ORATORYCLIA [id number] [address] MCHC (RBC) [Mass/Vol] 29.7 g/dL Low 30.5-36.0 [facility] Comment on above: Order Comment: Speci men Type: BLOOD SPECIMENOrdering Facility: [facility] Address: [address] [place] [address] Performed By: #### 5 7021-8 ####[facility]ORATORYCLIA [id number] [place] [address] [place] MCV (RBC) [Entitic vol] 94.9 fL Normal 80.0-100.0 [facility] Comment on above: Order Comment: Speci men Type: BLOOD SPECIMENOrdering Facility: [facility] Address: [address] [place] [address] Performed By: #### 5 7021-8 ####[facility]ORATORYCLIA [id number] [address] [place] Monocytes (Bld) [#/Vol] 0.62 10*3/uL Normal <0.87 [facility] Comment on above: Order Comment: Speci men Type: BLOOD SPECIMENOrdering Facility: [facility] Address: [address] [place] [address] Performed By: #### 5 7021-8 ####[facility]ORATORYCLIA [id number] [address] STATES [facility] Monocytes/100 WBC (Bld) 6.0 % Normal [facility] Comment on above: Order Comment: Speci men Type: BLOOD SPECIMENOrdering Facility: [facility] Address: [address] [place] [address] Performed By: #### 5 7021-8 ####[facility]ORATORYCLIA [id number] [address] [place] Neutrophils (Bld) [#/Vol] 7.25 10*3/uL Normal 1.45-7.50 [facility] Comment on above: Order Comment: Speci men Type: BLOOD SPECIMENOrdering Facility: [facility] Address: [address] [place] [address] Performed By: #### 5 7021-8 ####[facility]ORATORYCLIA [id number] [address] [place] Neutrophils/100 WBC (Bld) 69.6 % Normal [facility] Comment on above: Order Comment: Speci men Type: BLOOD SPECIMENOrdering Facility: [facility] Address: [address] Performed By: #### 5 7021-8 ####[facility]ORATORYCLIA [id number] [address] Nucleated RBC (Bld) [#/Vol] 10*3/uL Normal <0.01 [facility] Comment on above: Order Comment: Speci men Type: BLOOD SPECIMENOrdering Facility: [facility] Address: [address] [place], [place] [address] Performed By: #### 5 7021-8 ####[facility]ORATORYCLIA [id number] [address] Nucleated RBC/100 WBC (Bld) [Ratio] 0.0 /100 WBC Normal [facility] Comment on above: Order Comment: Speci men Type: BLOOD SPECIMENOrdering Facility: [facility] Address: [address] [place] [address] Performed By: #### 5 7021-8 ####[facility]ORATORYCLIA [id number] [address] Platelet mean volume (Bld) [Entitic vol] 11.3 fL Normal 9.0-12.7 [facility] Comment on above: Order Comment: Speci men Type: BLOOD SPECIMENOrdering Facility: [facility] Address: [address] [place], [place] [address] Performed By: #### 5 7021-8 ####[facility]ORATORYCLIA [id number] [address] Platelets (Bld) [#/Vol] 243 10*3/uL Normal 150-400 [facility] Comment on above: Order Comment: Speci men Type: BLOOD SPECIMENOrdering Facility: [facility] Address: [address] [place], [place] [address] Performed By: #### 5 7021-8 ####[facility]ATORYCLIA [id number] [address] RBC (Bld) [#/Vol] 3.12 10*6/uL Low 4.20-6.00 [facility] Comment on above: Order Comment: Shira feldman Type: BLOOD SPECIMENOrdering Facility: [facility] Address: [address] [place] [address] Performed By: #### 5 7021-8 ####[facility]ORATORYCLIA [id number] [address] STATES OF [facility] WBC (Bld) [#/Vol] 10.40 10*3/uL Normal 3.70-11.00 [facility] Comment on above: Order Comment: Shira feldman Type: BLOOD SPECIMENOrdering Facility: [facility] Address: [address] [place] [address] Performed By: #### 5 7021-8 ####[facility]ORATORYCLIA [id number] [address] CONSULT PROGon 07-25-2021 CONSULT PROG Normal [facility] MYCOPLASMA PNEUM IGMon 07-25 M. PNEUMO IGM, QUAL Negative Normal Negative [facility] Comment on above: Order Comment: Shira feldman Type: BLOOD SPECIMENOrdering Facility: [facility] Address: [address] [place] [address] Result Comment: Myco plasma pneumoniae IgM antibody test is used as an aid in diagnosis of recent infection with M. pneumoniae. It may occasionally remain elevated for extended periods after an acute infection. Cannot exclude recent infection if the specimen collected 7-10 days after onset of signs and symptoms. Clinical correlation is required. Performed By: #### M YCOPM ####[facility] LABCLIA [id number] [facility] [id number] [place] [address] [place] NURSING PROGon 07-25-2021 NURSING PROG Normal [facility] THERAPY NTon 07-25-2021 THERAPY NT Normal [facility] THERAPY NT Normal [facility] aPTT PPPon 07-25-2021 aPTT Coag (PPP) [Time] 62.6 s High 23.0-32.4 [facility] Comment on above: Order Comment: Speci men Type: BLOOD SPECIMENOrdering Facility: [facility] Address: [facility] [place] [address] Performed By: #### 1 4979-9 ####[facility] LABORATORYCLIA [id number] [address] [place] Bacteria Ur Culton Bacteria identified Cx Nom (U) CULTURE, URINE: No growth (<100 CFU/ml) Normal [facility] Comment on above: Performed By: #### 6 30-4 ####[facility]ORATORYCLIA [id number] [address] [place] Basic metabolic 2000 panelon 07-24-2021 Anion gap [Moles/Vol] 13 mmol/L Normal 9-18 [facility] Comment on above: Order Comment: Speci men Type: BLOOD SPECIMENOrdering Facility: [facility] Address: [address] [place] [address] Performed By: #### 1 9123-9, PROCPR, 7-1, 20080-7 ####[facility] LABORATORYCLIA [id number] [place] [address] [place] Calcium [Mass/Vol] 9.5 mg/dL Normal 8.5-10.2 [facility] Comment on above: Order Comment: Speci men Type: BLOOD SPECIMENOrdering Facility: [facility] Address: [facility] [place] [address] Performed By: #### 1 9123-9, PROCAL, 7-1, 81236-5 ####[facility] LABORATORYCLIA [id number] [place] [address] [place] Chloride [Moles/Vol] 102 mmol/L Normal 97-105 [facility] Comment on above: Order Comment: Speci men Type: BLOOD SPECIMENOrdering Facility: [facility] Address: [facility] [place] [address] Performed By: #### 1 9123-9, PROCAL, 2777-1, 43493-6 ####[facility]ITALCLIA [id number] [place] [address] [place] CO2 [Moles/Vol] 28 mmol/L Normal 22-30 [facility] Comment on above: Order Comment: Speci men Type: BLOOD SPECIMENOrdering Facility: [facility] Address: [address] [place] [address] Performed By: #### 1 9123-9, KATIE, 2776-05, 76564-6 ####[facility]ITALIA [id number] [address] STATES OF [facility] Creatinine [Mass/Vol] 0.86 mg/dL Normal 0.73-1.22 [facility] Comment on above: Order Comment: Speci men Type: BLOOD SPECIMENOrdering Facility: [facility] Address: [address] [place] [address] Performed By: #### 1 9123-9, KATIE, 2776-05, ####[facility]PITALIA [id number] [address] STATES OF [facility] ESTIMATED GLOMERULAR FILTRATION RATE 94 mL/min/1.73m??? Normal >=60 [facility] Comment on above: Order Comment: Speci men Type: BLOOD SPECIMENOrdering Facility: [facility] Address: [address] [place] [address] Result Comment: Luzmaria mated Glomerular Filtration Rate [...] GFR. Performed By: #### 1 9123-9, KATIE, 2776-05, ####[facility]OSPITALIA [id number] [place] [id number] [place] Glucose [Mass/Vol] 148 mg/dL High 74-99 [facility] Comment on above: Order Comment: Speci men Type: BLOOD SPECIMENOrdering Facility: [facility] Address: [address] [place] [address] Result Comment: The [place] Diabetes Association (ADA) provides guidance for cutoff [...] Standards of Medical Care in Diabetes 2016, [employer] Diabetes Association. Diabetes Care. 2016.39(Suppl 1). Performed By: #### 1 9123-9, PROCPR, 2777-1, 74780-9 ####[facility] LABORATORYCLIA [id number] [place] [address] [place] Potassium [Moles/Vol] 4.0 mmol/L Normal 3.7-5.1 [facility] Comment on above: Order Comment: Johncara feldman Type: BLOOD SPECIMENOrdering Facility: [facility] Address: [address] [place] [address] Performed By: #### 1 9123-9, PROCPR, 7-1, 43559-7 ####[facility] LABORATORYCLIA [id number] [place] [address] [place] Sodium [Moles/Vol] 143 mmol/L Normal 136-144 [facility] Comment on above: Order Comment: Shira feldman Type: BLOOD SPECIMENOrdering Facility: [facility] Address: [address] [place], [place] [address] Performed By: #### 1 9123-9, PROCAL, 7-1, 37410-3 ####[facility] LABORATORYCLIA [id number] [place] [address] [place] Urea nitrogen [Mass/Vol] 38 mg/dL High 9-24 [facility] Comment on above: Order Comment: Speci men Type: BLOOD SPECIMENOrdering Facility: [facility] Address: [address] [place] [address] Performed By: #### 1 9123-9, PROCAL, 2777-1, 36902-5 ####[facility] LABORATORYCLIA [id number] [place] [address] [place] CBC W Auto Differential pane l (Bld)on 07-24-2021 Basophils (Bld) [#/Vol] 0.06 10*3/uL Normal <0.11 [facility] Comment on above: Order Comment: Speci men Type: BLOOD SPECIMENOrdering Facility: [facility] Address: [address] [place] [address] Performed By: #### 5 7021-8 ####[facility] LABORATORYCLIA [id number] [place] [address] [place] Basophils/100 WBC (Bld) 0.6 % Normal [facility] Comment on above: Order Comment: Speci men Type: BLOOD SPECIMENOrdering Facility: [facility] Address: [address] [place] [address] Performed By: #### 5 7021-8 ####[facility] LABORATORYCLIA [id number] [address] [place] Differential cell count method Nom (Bld) Auto Normal [facility] Comment on above: Order Comment: Speci men Type: BLOOD SPECIMENOrdering Facility: [facility] Address: [address] [place] [address] Performed By: #### 5 7021-8 ####[facility] LABORATORYCLIA [id number] [place] [address] [place] Eosinophils (Bld) [#/Vol] 0.03 10*3/uL Normal <0.46 [facility] Comment on above: Order Comment: Speci men Type: BLOOD SPECIMENOrdering Facility: [facility] Address: [address] [place] [address] Performed By: #### 5 7021-8 ####[facility]ATORYCLIA [id number] [address] [place] Eosinophils/100 WBC (Bld) 0.3 % Normal [facility] Comment on above: Order Comment: Speci men Type: BLOOD SPECIMENOrdering Facility: [facility] Address: [address] [place] [address] Performed By: #### 5 7021-8 ####[facility] LABORATORYCLIA [id number] [address] Erythrocyte distribution width (RBC) [Ratio] 17.0 % High 11.5-15.0 [facility] Comment on above: Order Comment: Speci men Type: BLOOD SPECIMENOrdering Facility: [facility] Address: [address] [place] [address] Performed By: #### 5 7021-8 ####[facility] LABORATORYCLIA [id number] [address] Hematocrit (Bld) [Volume fraction] 30.5 % Low 39.0-51.0 [facility] Comment on above: Order Comment: Speci men Type: BLOOD SPECIMENOrdering Facility: [facility] Address: [address] [place] [address] Performed By: #### 5 7021-8 ####[facility] LABORATORYCLIA [id number] [address] [place] Hemoglobin (Bld) [Mass/Vol] 9.0 g/dL Low 13.0-17.0 [facility] Comment on above: Order Comment: Speci men Type: BLOOD SPECIMENOrdering Facility: [facility] Address: [address] [place] [address] Performed By: #### 5 7021-8 ####[facility]ORATORYCLIA [id number] [address] IMMATURE GRAN % 0.5 % Normal [facility] Comment on above: Order Comment: Speci men Type: BLOOD SPECIMENOrdering Facility: [facility] Address: [address] [address] Performed By: #### 5 7021-8 ####[facility] LABORATORYCLIA [id number] [address] IMMATURE GRAN ABS 0.05 k/uL Normal <0.10 [facility] Comment on above: Order Comment: Speci men Type: BLOOD SPECIMENOrdering Facility: [facility] Address: [address] [place] [address] Performed By: #### 5 7021-8 ####[facility] LABORATORYCLIA [id number] [address] Lymphocytes (Bld) [#/Vol] 1.68 10*3/uL Normal 1.00-4.00 [facility] Comment on above: Order Comment: Speci men Type: BLOOD SPECIMENOrdering Facility: [facility] Address: [address] [place] [address] Performed By: #### 5 7021-8 ####[facility] LABORATORYCLIA [id number] [address] Lymphocytes/100 WBC (Bld) 16.2 % Normal [facility] Comment on above: Order Comment: Speci men Type: BLOOD SPECIMENOrdering Facility: [facility] Address: [address] [place] [address] Performed By: #### 5 7021-8 ####[facility] LABORATORYCLIA [id number] [address] MCH (RBC) [Entitic mass] 27.4 pg Normal 26.0-34.0 [facility] Comment on above: Order Comment: Speci men Type: BLOOD SPECIMENOrdering Facility: [facility] Address: [address] [place] [address] Performed By: #### 5 7021-8 ####[facility] LABORATORYCLIA [id number] [address] MCHC (RBC) [Mass/Vol] 29.5 g/dL Low 30.5-36.0 [facility] Comment on above: Order Comment: Speci men Type: BLOOD SPECIMENOrdering Facility: [facility] Address: [address] [place] [address] Performed By: #### 5 7021-8 ####[facility] LABORATORYCLIA [id number] [address] [place] MCV (RBC) [Entitic vol] 93.0 fL Normal 80.0-100.0 [facility] Comment on above: Order Comment: Speci men Type: BLOOD SPECIMENOrdering Facility: [facility] Address: [address] [place] [address] Performed By: #### 5 7021-8 ####[facility] LABORATORYCLIA [id number] [address] [place] Monocytes (Bld) [#/Vol] 0.63 10*3/uL Normal <0.87 [facility] Comment on above: Order Comment: Speci men Type: BLOOD SPECIMENOrdering Facility: [facility] Address: [address] [place] [address] Performed By: #### 5 7021-8 ####[facility] LABORATORYCLIA [id number] [address] [place] Monocytes/100 WBC (Bld) 6.1 % Normal [facility] Comment on above: Order Comment: Speci men Type: BLOOD SPECIMENOrdering Facility: [facility] Address: [address] [place] [address] Performed By: #### 5 7021-8 ####[facility] LABORATORYCLIA [id number] [address] [place] Neutrophils (Bld) [#/Vol] 7.91 10*3/uL High 1.45-7.50 [facility] Comment on above: Order Comment: Speci men Type: BLOOD SPECIMENOrdering Facility: [facility] Address: [address] [place] [address] Performed By: #### 5 7021-8 ####[facility] LABORATORYCLIA [id number] [address] [place] Neutrophils/100 WBC (Bld) 76.3 % Normal [facility] Comment on above: Order Comment: Speci men Type: BLOOD SPECIMENOrdering Facility: [facility] Address: [address] [place] [address] Performed By: #### 5 7021-8 ####[facility] LABORATORYCLIA [id number] [address] [place] Nucleated RBC (Bld) [#/Vol] 10*3/uL Normal <0.01 [facility] Comment on above: Order Comment: Speci men Type: BLOOD SPECIMENOrdering Facility: [facility] Address: [address] [place] [address] Performed By: #### 5 7021-8 ####[facility] LABORATORYCLIA [id number] [address] Nucleated RBC/100 WBC (Bld) [Ratio] 0.0 /100 WBC Normal [facility] Comment on above: Order Comment: Speci men Type: BLOOD SPECIMENOrdering Facility: [facility] Address: [address] [place] [address] Performed By: #### 5 7021-8 ####[facility] LABORATORYCLIA [id number] [address] [place] Platelet mean volume (Bld) [Entitic vol] 11.1 fL Normal 9.0-12.7 [facility] Comment on above: Order Comment: Speci men Type: BLOOD SPECIMENOrdering Facility: [facility] Address: [address] [place] [address] Performed By: #### 5 7021-8 ####[facility] LABORATORYCLIA [id number] [address] [place] Platelets (Bld) [#/Vol] 285 10*3/uL Normal 150-400 [facility] Comment on above: Order Comment: Speci men Type: BLOOD SPECIMENOrdering Facility: [facility] Address: [address] [place], [place] [address] Performed By: #### 5 7021-8 ####[facility] LABORATORYCLIA [id number] [place] [address] [place] RBC (Bld) [#/Vol] 3.28 10*6/uL Low 4.20-6.00 [facility] Comment on above: Order Comment: Speci men Type: BLOOD SPECIMENOrdering Facility: [facility] Address: [address] [place] [address] Performed By: #### 5 7021-8 ####[facility] LABORATORYCLIA [id number] [place] [address] [place] WBC (Bld) [#/Vol] 10.36 10*3/uL Normal 3.70-11.00 [facility] Comment on above: Order Comment: Speci men Type: BLOOD SPECIMENOrdering Facility: [facility] Address: [address] [place] [address] Performed By: #### 5 7021-8 ####[facility] LABORATORYCLIA [id number] [address] [place] Legionella Ag Ur Qlon 2021 Legionella sp Ag Ql (U) Negative Normal Negative [facility] Comment on above: Order Comment: Speci men Type: URINE SPECIMENOrdering Facility: [facility] Address: [address] [place] [address] Performed By: #### 3 2781-7 ####[facility] LABORATORYCLIA [id number] [address] [place] Magnesium SerPl-mCncon 07-24 Magnesium [Mass/Vol] 2.3 mg/dL Normal 1.7-2.3 [facility] Comment on above: Order Comment: Speci men Type: BLOOD SPECIMENOrdering Facility: [facility] Address: [address] [place] [address] Performed By: #### 1 9123-9, PROCAL, 2777-1, 43835-3 ####[facility] LABORATORYCLIA [id number] [place] [address] [place] NURSING PROGon 07-24-2021 NURSING PROG Normal [facility] PROCALCITONIN (LAB)on 2021 Procalcitonin [Mass/Vol] 0.15 ng/mL High <0.09 [facility] Comment on above: Order Comment: Speci men Type: BLOOD SPECIMENOrdering Facility: [facility] Address: [address] [place] [address] Result Comment: For a guided interpretation of test results, please visit the Change in Procalcitonin Calculator, [email or web address]. Performed By: #### 1 9123-9, KATIE, 2777-1, 16873-7 ####[facility] LABORATORYCLIA [id number] [address] [place] Phosphate SerPl-mCncon 07-24 Phosphate [Mass/Vol] 3.9 mg/dL Normal 2.7-4.8 [facility] Comment on above: Order Comment: Speci men Type: BLOOD SPECIMENOrdering Facility: [facility] Address: [address] [place] [address] Performed By: #### 1 9123-9, KATIE, 2777-1, 38751-8 ####[facility] LABORATORYCLIA [id number] [address] [place] STREPTOCOCCUS PNEUMONIAE AGo n 07-24-2021 STREPTOCOCCUS PNEUMONIAE AG Normal [facility] Comment on above: Performed By: #### S PNAG ####[facility] LABORATORYCLIA [id number] [place] [address] [place] aPTT PPPon 07-24-2021 aPTT Coag (PPP) [Time] 60.8 s High 23.0-32.4 [facility] Comment on above: Order Comment: Speci men Type: BLOOD SPECIMENOrdering Facility: [facility] Address: [address] [place] [address] Performed By: #### 1 4979-9 ####[facility]ORATORYCLIA [id number] [address] aPTT Coag (PPP) [Time] 38.2 s High 23.0-32.4 [facility] Comment on above: Order Comment: Speci men Type: BLOOD SPECIMENOrdering Facility: [facility] Address: [address] [place] [address] Performed By: #### 1 4979-9 ####[facility] LABORATORYCLIA [id number] [address] aPTT Coag (PPP) [Time] 35.9 s High 23.0-32.4 [facility] Comment on above: Order Comment: Speci men Type: BLOOD SPECIMENOrdering Facility: [facility] Address: [address] [place] [address] Performed By: #### 1 4979-9 ####[facility] LABORATORYCLIA [id number] [address] aPTT Coag (PPP) [Time] 28.8 s Normal 23.0-32.4 [facility] Comment on above: Order Comment: Speci men Type: BLOOD SPECIMENOrdering Facility: [facility] Address: [address] [place] [address] Performed By: #### 1 4979-9 ####[facility] LABORATORYCLIA [id number] [address] [place] ALLIED HEALTHon 07-23-2021 ALLIED HEALTH Normal [facility] ALLIED HEALTH Normal [facility] ALLIED HEALTH Normal [facility] ARTERIAL BLOOD GASESon 07-23 Base excess Calc (Bld) [Moles/Vol] 4 mmol/L High 0-2 [facility] Comment on above: Order Comment: Speci men Type: ARTERIAL BLOOD SPECIMENOrdering Facility: [facility] Address: [address] [place] [address] Performed By: #### A LLBG ####[facility] LABORATORYCLIA [id number] [address] Body temperature 100.58 [degF] Normal [facility] Comment on above: Order Comment: Speci men Type: ARTERIAL BLOOD SPECIMENOrdering Facility: [facility] Address: [address] [place] [address] Performed By: #### A LLBG ####[facility] LABORATORYCLIA [id number] [address] STATES OF [facility] CALCIUM IONIZED, PH CORRECTED 1.26 mmol/L Normal 1.08-1.30 [facility] Comment on above: Order Comment: Speci men Type: ARTERIAL BLOOD SPECIMENOrdering Facility: [facility] Address: [address] [place] [address] Performed By: #### A LLBG ####[facility]ORATORYCLIA [id number] [address] STATES OF [facility] Calcium.ionized (BldV) [Mass/Vol] 1.25 mmol/L Normal 1.08-1.30 [facility] Comment on above: Order Comment: Speci men Type: ARTERIAL BLOOD SPECIMENOrdering Facility: [facility] Address: [address] [place] [address] Performed By: #### A LLBG ####[facility]ORATORYCLIA [id number] [address] Carboxyhemoglobin (BldA) [Mass fraction] 1.2 % Normal 0.0-2.0 [facility] Comment on above: Order Comment: Speci men Type: ARTERIAL BLOOD SPECIMENOrdering Facility: [facility] Address: [address] [place] [address] Result Comment: Carb oxyhemoglobin Reference Range for Smokers: 2.0-8.0% Performed By: #### A LLBG ####[facility]ORATORYCLIA [id number] [address] OF [facility] CO2 (Bld) [Partial pressure] 46 mm Hg Normal 36-46 [facility] Comment on above: Order Comment: Speci men Type: ARTERIAL BLOOD SPECIMENOrdering Facility: [facility] Address: [address] [place] [address] Performed By: #### A LLBG ####[facility] LABORATORYCLIA [id number] [address] [place] CO2 [Moles/Vol] 27 mmol/L Normal 22-28 [facility] Comment on above: Order Comment: Speci men Type: ARTERIAL BLOOD SPECIMENOrdering Facility: [facility] Address: [address] [place] [address] Performed By: #### A LLBG ####[facility] LABORATORYCLIA [id number] [address] [place] CO2 adjusted to patient's actual temperature (Bld) [Partial pressure] 48 mmHg High 36-46 [facility] Comment on above: Order Comment: Speci men Type: ARTERIAL BLOOD SPECIMENOrdering Facility: [facility] Address: [address] [place] [address] Performed By: #### A LLBG ####[facility]ORATORYCLIA [id number] [address] [place] Glucose [Mass/Vol] 134 mg/dL High 60-105 [facility] Comment on above: Order Comment: Speci men Type: ARTERIAL BLOOD SPECIMENOrdering Facility: [facility] Address: [address] [place] [address] Performed By: #### A LLBG ####[facility]ORATORYCLIA [id number] [address] [place] HCO3 (Bld) [Moles/Vol] 29 mmol/L High 22-26 [facility] Comment on above: Order Comment: Speci men Type: ARTERIAL BLOOD SPECIMENOrdering Facility: [facility] Address: [address] [place] [address] Performed By: #### A LLBG ####[facility]ORATORYCLIA [id number] [address] [place] Hematocrit (Bld) [Volume fraction] 31.4 % Low 39.0-51.0 [facility] Comment on above: Order Comment: Speci men Type: ARTERIAL BLOOD SPECIMENOrdering Facility: [facility] Address: [address] [place] [place] [address] Performed By: #### A LLBG ####[facility] LABORATORYCLIA [id number] [address] Hemoglobin (Bld) [Mass/Vol] 10.2 g/dL Low 13.0-17.0 [facility] Comment on above: Order Comment: Speci men Type: ARTERIAL BLOOD SPECIMENOrdering Facility: [facility] Address: [facility] [place] [address] Performed By: #### A LLBG ####[facility]ORATORYCLIA [id number] [address] [place] Methemoglobin (Bld) [Mass fraction] % Normal 0.0-1.5 [facility] Comment on above: Order Comment: Speci men Type: ARTERIAL BLOOD SPECIMENOrdering Facility: [facility] Address: [address] [place] [address] Performed By: #### A LLBG ####[facility]ORATORYCLIA [id number] [address] O2 THERAPY Ventilator Normal [facility] Comment on above: Order Comment: Speci men Type: ARTERIAL BLOOD SPECIMENOrdering Facility: [facility] Address: [address] [place] [address] Performed By: #### A LLBG ####[facility]ORATORYCLIA [id number] [address] [place] Oxygen (Bld) [Partial pressure] 113 mm Hg High 85-95 [facility] Comment on above: Order Comment: Speci men Type: ARTERIAL BLOOD SPECIMENOrdering Facility: [facility] Address: [address] [place] [address] Performed By: #### A LLBG ####[facility]ORATORYCLIA [id number] [address] [place] Oxygen adjusted to patient's actual temperature (Bld) [Partial pressure] 119 mmHg High 85-95 [facility] Comment on above: Order Comment: Speci men Type: ARTERIAL BLOOD SPECIMENOrdering Facility: [facility] Address: [address] [place] [address] Performed By: #### A LLBG ####[facility]ORATORYCLIA [id number] [address] [place] OXYGEN SATURATION, ARTERIAL 98 % Normal 95-98 [facility] Comment on above: Order Comment: Speci men Type: ARTERIAL BLOOD SPECIMENOrdering Facility: [facility] Address: [address] [place] [address] Performed By: #### A LLBG ####[facility]ORATORYCLIA [id number] [address] [place] Oxyhemoglobin (BldA) [Mass fraction] 96 % Normal 95-98 [facility] Comment on above: Order Comment: Speci men Type: ARTERIAL BLOOD SPECIMENOrdering Facility: [facility] Address: [address] [place] [address] Performed By: #### A LLBG ####[facility]ORATORYCLIA [id number] [place] [address] [place] pH (Bld) 7.41 [pH] Normal 7.35-7.45 [facility] Comment on above: Order Comment: Speci men Type: ARTERIAL BLOOD SPECIMENOrdering Facility: [facility] Address: [address] [place] [address] Performed By: #### A LLBG ####[facility]ORATORYCLIA [id number] [address] [place] pH adjusted to patient's actual temperature (Bld) 7.40 Normal 7.35-7.45 [facility] Comment on above: Order Comment: Speci men Type: ARTERIAL BLOOD SPECIMENOrdering Facility: [facility] Address: [address] [place] [address] Performed By: #### A LLBG ####[facility]ORATORYCLIA [id number] [place] [address] [place] Potassium [Moles/Vol] 4.3 mmol/L Normal 3.5-5.0 [facility] Comment on above: Order Comment: Speci men Type: ARTERIAL BLOOD SPECIMENOrdering Facility: [facility] Address: [address] [place] [address] Performed By: #### A LLBG ####[facility]ORATORYCLIA [id number] [place] [address] [place] Sodium [Moles/Vol] 144 mmol/L Normal 136-144 [facility] Comment on above: Order Comment: Speci men Type: ARTERIAL BLOOD SPECIMENOrdering Facility: [facility] Address: [address] [place] [address] Performed By: #### A LLBG ####[facility]ORATORYCLIA [id number] [place] [address] [place] Bacteria CSF Culton 07-24-19 22 Bacteria identified Cx Nom (CSF) Abnormal [facility] Comment on above: Performed By: #### 6 06-4 ####[facility]ORATORYCLIA [id number] [place] [address] [place] Basic metabolic 2000 panelon 07-23-2021 Anion gap [Moles/Vol] 12 mmol/L Normal 9-18 [facility] Comment on above: Order Comment: Speci men Type: BLOOD SPECIMENOrdering Facility: [facility] Address: [address] [place] [address] Performed By: #### 2 4321-2 ####[facility]ORATORYCLIA [id number] [place] [address] [place] Calcium [Mass/Vol] 9.7 mg/dL Normal 8.5-10.2 [facility] Comment on above: Order Comment: Speci men Type: BLOOD SPECIMENOrdering Facility: [facility] Address: [address] [place] [address] Performed By: #### 2 4321-2 ####[facility]ORATORYCLIA [id number] [place] [address] [place] Chloride [Moles/Vol] 105 mmol/L Normal 97-105 [facility] Comment on above: Order Comment: Speci men Type: BLOOD SPECIMENOrdering Facility: [facility] Address: [address] [place] [address] Performed By: #### 2 4321-2 ####[facility]ORATORYCLIA [id number] [place] [address] [place] CO2 [Moles/Vol] 28 mmol/L Normal 22-30 [facility] Comment on above: Order Comment: Speci men Type: BLOOD SPECIMENOrdering Facility: [facility] Address: [address] [place] [address] Performed By: #### 2 4321-2 ####[facility]PITALCLIA [id number] [address] STATES OF [facility] Creatinine [Mass/Vol] 0.78 mg/dL Normal 0.73-1.22 [facility] Comment on above: Order Comment: Speci men Type: BLOOD SPECIMENOrdering Facility: [facility] Address: [address] [place] [address] Performed By: #### 2 4321-2 ####[facility]ORATORYCLIA [id number] [address] ESTIMATED GLOMERULAR FILTRATION RATE 97 mL/min/1.73m??? Normal >=60 [facility] Comment on above: Order Comment: Speci men Type: BLOOD SPECIMENOrdering Facility: [facility] Address: [address] [place] [address] Result Comment: Luzmaria mated Glomerular Filtration Rate [...] actual GFR. Performed By: #### 2 4321-2 ####[facility]ORATORYCLIA [id number] [place] [address] [place] Glucose [Mass/Vol] 127 mg/dL High 74-99 [facility] Comment on above: Order Comment: Speci men Type: BLOOD SPECIMENOrdering Facility: [facility] Address: [address] [place] [address] Result Comment: The [place] Diabetes Association (ADA) provides guidance for cutoff [...] Standards of Medical Care in Diabetes 2016, [employer]. Diabetes Care. 2016.39(Suppl 1). Performed By: #### 2 4321-2 ####[facility]ORATORYCLIA [id number] [place] [address] [place] Potassium [Moles/Vol] 4.3 mmol/L Normal 3.7-5.1 [facility] Comment on above: Order Comment: Shira feldman Type: BLOOD SPECIMENOrdering Facility: [facility] Address: [address] [place] [address] Performed By: #### 2 4321-2 ####[facility]ORATORYCLIA [id number] [place] [address] [place] Sodium [Moles/Vol] 145 mmol/L High 136-144 [facility] Comment on above: Order Comment: Johni men Type: BLOOD SPECIMENOrdering Facility: [facility] Address: [address] [place] [address] Performed By: #### 2 4321-2 ####[facility]ATORYCLIA [id number] [place] [address] [place] Urea nitrogen [Mass/Vol] 37 mg/dL High 9-24 [facility] Comment on above: Order Comment: Speci men Type: BLOOD SPECIMENOrdering Facility: [facility] Address: [address] [place] [address] Performed By: #### 2 4321-2 ####[facility]ORATORYCLIA [id number] [address] C diff Tox gens Stl Ql MEGAN+p robeon 07-23-2021 C. difficile toxin genes MEGAN+probe Ql (Stl) Negative Normal Negative for C. difficile toxin by PCR [facility] Comment on above: Order Comment: Speci men Type: STOOL SPECIMENOrdering Facility: [facility] Address: [address] [place] [address] Performed By: #### 5 4067-4 ####[facility] LABORATORYCLIA [id number] [address] STATES [facility] CBC W Auto Differential pane l (Bld)on 07-23-2021 Basophils (Bld) [#/Vol] 0.07 10*3/uL Normal <0.11 [facility] Comment on above: Order Comment: Speci men Type: BLOOD SPECIMENOrdering Facility: [facility] Address: [address] [place] [address] Performed By: #### 5 7021-8 ####[facility]ORATORYCLIA [id number] [address] STATES OF [facility] Basophils/100 WBC (Bld) 0.5 % Normal [facility] Comment on above: Order Comment: Speci men Type: BLOOD SPECIMENOrdering Facility: [facility] Address: [address] [place] [address] Performed By: #### 5 7021-8 ####[facility]ORATORYCLIA [id number] [address] Differential cell count method Nom (Bld) Auto Normal [facility] Comment on above: Order Comment: Speci men Type: BLOOD SPECIMENOrdering Facility: [facility] Address: [address] [place] [address] Performed By: #### 5 7021-8 ####[facility]ORATORYCLIA [id number] [address] [place] Eosinophils (Bld) [#/Vol] 10*3/uL Normal <0.46 [facility] Comment on above: Order Comment: Speci men Type: BLOOD SPECIMENOrdering Facility: [facility] Address: [address] [place] [address] Performed By: #### 5 7021-8 ####[facility] LABORATORYCLIA [id number] [address] Eosinophils/100 WBC (Bld) 0.2 % Normal [facility] Comment on above: Order Comment: Speci men Type: BLOOD SPECIMENOrdering Facility: [facility] Address: [address] [place] [address] Performed By: #### 5 7021-8 ####[facility] LABORATORYCLIA [id number] [address] Erythrocyte distribution width (RBC) [Ratio] 16.7 % High 11.5-15.0 [facility] Comment on above: Order Comment: Speci men Type: BLOOD SPECIMENOrdering Facility: [facility] Address: [address] [place] [address] Performed By: #### 5 7021-8 ####[facility] LABORATORYCLIA [id number] [address] Hematocrit (Bld) [Volume fraction] 32.8 % Low 39.0-51.0 [facility] Comment on above: Order Comment: Speci men Type: BLOOD SPECIMENOrdering Facility: [facility] Address: [address] [place] [address] Performed By: #### 5 7021-8 ####[facility] LABORATORYCLIA [id number] [address] Hemoglobin (Bld) [Mass/Vol] 9.7 g/dL Low 13.0-17.0 [facility] Comment on above: Order Comment: Speci men Type: BLOOD SPECIMENOrdering Facility: [facility] Address: [address] [place] [address] Performed By: #### 5 7021-8 ####[facility]ORATORYCLIA [id number] [address] IMMATURE GRAN % 0.7 % Normal [facility] Comment on above: Order Comment: Speci men Type: BLOOD SPECIMENOrdering Facility: [facility] Address: [address] [place] [address] Performed By: #### 5 7021-8 ####[facility] LABORATORYCLIA [id number] [address] IMMATURE GRAN ABS 0.09 k/uL Normal <0.10 [facility] Comment on above: Order Comment: Speci men Type: BLOOD SPECIMENOrdering Facility: [facility] Address: [address] [place] [address] Performed By: #### 5 7021-8 ####[facility] LABORATORYCLIA [id number] [address] Lymphocytes (Bld) [#/Vol] 1.94 10*3/uL Normal 1.00-4.00 [facility] Comment on above: Order Comment: Speci men Type: BLOOD SPECIMENOrdering Facility: [facility] Address: [address] [place] [address] Performed By: #### 5 7021-8 ####[facility] LABORATORYCLIA [id number] [address] Lymphocytes/100 WBC (Bld) 14.6 % Normal [facility] Comment on above: Order Comment: Speci men Type: BLOOD SPECIMENOrdering Facility: [facility] Address: [address] [place] [address] Performed By: #### 5 7021-8 ####[facility]ORATORYCLIA [id number] [address] [place] MCH (RBC) [Entitic mass] 27.2 pg Normal 26.0-34.0 [facility] Comment on above: Order Comment: Speci men Type: BLOOD SPECIMENOrdering Facility: [facility] Address: [address] [place] [address] Performed By: #### 5 7021-8 ####[facility] LABORATORYCLIA [id number] [address] MCHC (RBC) [Mass/Vol] 29.6 g/dL Low 30.5-36.0 [facility] Comment on above: Order Comment: Speci men Type: BLOOD SPECIMENOrdering Facility: [facility] Address: [address] [place] [address] Performed By: #### 5 7021-8 ####[facility] LABORATORYCLIA [id number] [address] MCV (RBC) [Entitic vol] 92.1 fL Normal 80.0-100.0 [facility] Comment on above: Order Comment: Speci men Type: BLOOD SPECIMENOrdering Facility: [facility] Address: [address] [place] [address] Performed By: #### 5 7021-8 ####[facility] LABORATORYCLIA [id number] [address] Monocytes (Bld) [#/Vol] 0.74 10*3/uL Normal <0.87 [facility] Comment on above: Order Comment: Speci men Type: BLOOD SPECIMENOrdering Facility: [facility] Address: [address] [place] [address] Performed By: #### 5 7021-8 ####[facility] LABORATORYCLIA [id number] [address] Monocytes/100 WBC (Bld) 5.6 % Normal [facility] Comment on above: Order Comment: Speci men Type: BLOOD SPECIMENOrdering Facility: [facility] Address: [address] [place] [address] Performed By: #### 5 7021-8 ####[facility] LABORATORYCLIA [id number] [place] [address] [place] Neutrophils (Bld) [#/Vol] 10.43 10*3/uL High 1.45-7.50 [facility] Comment on above: Order Comment: Speci men Type: BLOOD SPECIMENOrdering Facility: [facility] Address: [address] [address] Performed By: #### 5 7021-8 ####[facility] LABORATORYCLIA [id number] [address] [place] Neutrophils/100 WBC (Bld) 78.4 % Normal [facility] Comment on above: Order Comment: Speci men Type: BLOOD SPECIMENOrdering Facility: [facility] Address: [address] [place] [address] Performed By: #### 5 7021-8 ####[facility] LABORATORYCLIA [id number] [address] [place] Nucleated RBC (Bld) [#/Vol] 10*3/uL Normal <0.01 [facility] Comment on above: Order Comment: Speci men Type: BLOOD SPECIMENOrdering Facility: [facility] Address: [address] [place] [address] Performed By: #### 5 7021-8 ####[facility] LABORATORYCLIA [id number] [address] [place] Nucleated RBC/100 WBC (Bld) [Ratio] 0.0 /100 WBC Normal [facility] Comment on above: Order Comment: Speci men Type: BLOOD SPECIMENOrdering Facility: [facility] Address: [address] [place] [address] Performed By: #### 5 7021-8 ####[facility] LABORATORYCLIA [id number] [address] [place] Platelet mean volume (Bld) [Entitic vol] 11.0 fL Normal 9.0-12.7 [facility] Comment on above: Order Comment: Speci men Type: BLOOD SPECIMENOrdering Facility: [facility] Address: [address] [place] [address] Performed By: #### 5 7021-8 ####[facility] LABORATORYCLIA [id number] [address] Platelets (Bld) [#/Vol] 381 10*3/uL Normal 150-400 [facility] Comment on above: Order Comment: Speci men Type: BLOOD SPECIMENOrdering Facility: [facility] Address: [address] [place] [address] Performed By: #### 5 7021-8 ####[facility] LABORATORYCLIA [id number] [address] [place] RBC (Bld) [#/Vol] 3.56 10*6/uL Low 4.20-6.00 [facility] Comment on above: Order Comment: Speci men Type: BLOOD SPECIMENOrdering Facility: [facility] Address: [address] [place] [address] Performed By: #### 5 7021-8 ####[facility] LABORATORYCLIA [id number] [address] WBC (Bld) [#/Vol] 13.29 10*3/uL High 3.70-11.00 [facility] Comment on above: Order Comment: Speci men Type: BLOOD SPECIMENOrdering Facility: [facility] Address: [address] [place] [address] Performed By: #### 5 7021-8 ####[facility] LABORATORYCLIA [id number] [address] CONSULT PROGon 07-23-2021 CONSULT PROG Normal [facility] CONSULT PROG Normal [facility] CSF MANUAL DIFFon 07-23-2021 DIF TTL, CSF 100 cells counted Normal [facility] Comment on above: Order Comment: Speci men Type: CEREBROSPINAL FLUIDOrdering Facility: [facility] Address: [address] [place] [address] Performed By: #### L [id number], NOP2159, 93884-6 ####[facility]ORATORYCLIA [id number] [address] [place] LYMPH%, CSF 2 % Low 50-90 [facility] Comment on above: Order Comment: Speci men Type: CEREBROSPINAL FLUIDOrdering Facility: [facility] Address: [address] [place] [address] Performed By: #### L [id number], [id number], 58338-0 ####[facility] LABORATORYCLIA [id number] [place] [address] [place] MONO%, CSF 9 % Low 10-50 [facility] Comment on above: Order Comment: Speci men Type: CEREBROSPINAL FLUIDOrdering Facility: [facility] Address: [address] [place] [address] Performed By: #### L [id number], XPD4664, 62670-1 ####[facility] LABORATORYCLIA [id number] [address] NEUT%, CSF 89 % High 0-3 [facility] Comment on above: Order Comment: Speci men Type: CEREBROSPINAL FLUIDOrdering Facility: [facility] Address: [address] [place] [address] Performed By: #### L [id number], YCH2315, 58105-9 ####[facility] LABORATORYCLIA [id number] [address] CSF PATHOLOGIST INTERP (LAB REFLEX ORDER-NO BILL)on 07-23-2021 CSF STAFF REVIEW Negative for maligna nt cells. Numerous bacterial organisms present, cocci in pairs and chains. Recommend correlation with CSF culture results. [facility] Comment on above: Order Comment: Speci men Type: CEREBROSPINAL FLUIDOrdering Facility: [facility] Address: [address] [place] [address] Performed By: #### L [id number], VIM8813, 07168-5 ####[facility] LABORATORYCLIA [id number] [address] Pathologist name Reviewed by Amador Stevens MD [facility] Comment on above: Order Comment: Speci men Type: CEREBROSPINAL FLUIDOrdering Facility: [facility] Address: [address] [place] [address] Performed By: #### L [id number], QZC4385, 96567-6 ####[facility] LABORATORYCLIA [id number] [address] [place] CT BRAIN WO IVCONon 07-24-19 CT BRAIN WO IVCON Normal [facility] Cell count panel (CSF)on Clarity (CSF) Clear Normal Clear [facility] Comment on above: Order Comment: Speci men Type: CEREBROSPINAL FLUIDOrdering Facility: [facility] Address: [address] [place] [address] Performed By: #### L [id number], NWE5916, 97450-7 ####[facility] LABORATORYCLIA [id number] [address] Clarity (Unsp spec) Not Indicated Normal Clear [facility] Comment on above: Order Comment: Speci men Type: CEREBROSPINAL FLUIDOrdering Facility: [facility] Address: [address] [place] [address] Performed By: #### L CT0862, TIO8238, 76159-7 ####[facility] LABORATORYCLIA [id number] [address] OF [facility] Color (CSF) Colorless Normal Colorless [facility] Comment on above: Order Comment: Speci men Type: CEREBROSPINAL FLUIDOrdering Facility: [facility] Address: [facility] [place] [address] Performed By: #### L OF8307, RBA8741, 40682-7 ####[facility]ORATORYCLIA [id number] [address] Color (Spun CSF) Not Indicated Normal Colorless [facility] Comment on above: Order Comment: Speci men Type: CEREBROSPINAL FLUIDOrdering Facility: [facility] Address: [facility] [place] [address] Performed By: #### L [id number], HCR1227, 65577-2 ####[facility]PITALCLIA [id number] [address] CSF TU[employer] Normal [facility] Comment on above: Order Comment: Speci men Type: CEREBROSPINAL FLUIDOrdering Facility: [facility] Address: [address] [place] [address] Performed By: #### L [id number], AFD6482, 68766-0 ####[facility] LABORATORYCLIA [id number] [address] OF [facility] RBC Manual cnt (CSF) [#/Vol] 7 cells/uL High 0-5 [facility] Comment on above: Order Comment: Johni men Type: CEREBROSPINAL FLUIDOrdering Facility: [facility] Address: [address] [place] [address] Performed By: #### L TO9440, QAL3473, 15960-1 ####[facility]PITALCLIA [id number] [address] WBC Manual cnt (CSF) [#/Vol] 193 cells/uL High 0-5 [facility] Comment on above: Order Comment: Johni men Type: CEREBROSPINAL FLUIDOrdering Facility: [facility] Address: [address] [place] [address] Performed By: #### L [id number], XQR9602, 43313-8 ####[facility]PITALCLIA [id number] [address] [place] Glucose CSF-mCncon 2 Glucose (CSF) [Mass/Vol] 81 mg/dL High 40-70 [facility] Comment on above: Order Comment: Speci men Type: CEREBROSPINAL FLUIDOrdering Facility: [facility] Address: [address] [place] [address] Result Comment: Lumb ar CSF glucose values of healthy patients are approximately 60% of the plasma values and must always be compared with a concurrently measured plasma value for adequate clinical interpretation.References: 1. Glucose HK (GLUC3) [package insert V 12.0 [place]]. [employer], [place], [place]. September 2015. 2. Michelle Moore, Michelle Manjarrez (2015). Chapter 7: Glucose and Lactate. F. Irina rose al.(eds.), Cerebrospinal Fluid in Clinical Neurology. [place]: [employer]. Performed By: #### 2 342-4, 2880-3 ####[facility] LABORATORYCLIA [id number] [address] [place] NURSING PROGon 07-23-2021 NURSING PROG Normal [facility] NURSING PROG Normal [facility] Prot CSF-mCncon 07-23-2021 Protein (CSF) [Mass/Vol] 68 mg/dL High 15-45 [facility] Comment on above: Order Comment: Speci men Type: CEREBROSPINAL FLUIDOrdering Facility: [facility] Address: [address] [place] [address] Performed By: #### 2 342-4, 2880-3 ####[facility] LABORATORYCLIA [id number] [address] Urinalysis complete panel (U )on 07-23-2021 Bilirubin Ql (U) Negative Normal Negative [facility] Comment on above: Order Comment: Speci men Type: URINE SPECIMENOrdering Facility: [facility] Address: [address] [place] [address] Performed By: #### 2 4356-8 ####[facility] LABORATORYCLIA [id number] [address] [place] Clarity (Unsp spec) Clear Normal Clear [facility] Comment on above: Order Comment: Speci men Type: URINE SPECIMENOrdering Facility: [facility] Address: [address] [place] [address] Performed By: #### 2 4356-8 ####[facility] LABORATORYCLIA [id number] [address] Color (U) Light Yellow Normal yellow [facility] Comment on above: Order Comment: Speci men Type: URINE SPECIMENOrdering Facility: [facility] Address: [address] [place], [place] [address] Performed By: #### 2 4356-8 ####[facility]ORATORYCLIA [id number] [address] Glucose Test strip (U) [Mass/Vol] Negative Normal Negative [facility] Comment on above: Order Comment: Speci men Type: URINE SPECIMENOrdering Facility: [facility] Address: [address] [place] [address] Performed By: #### 2 4356-8 ####[facility]ORATORYCLIA [id number] [address] [place] Hemoglobin Ql (U) Negative Normal Negative [facility] Comment on above: Order Comment: Speci men Type: URINE SPECIMENOrdering Facility: [facility] Address: [address] [place] [address] Performed By: #### 2 4356-8 ####[facility] LABORATORYCLIA [id number] [address] [place] Ketones Ql (U) Negative Normal Negative [facility] Comment on above: Order Comment: Speci men Type: URINE SPECIMENOrdering Facility: [facility] Address: [address] [place] [address] Performed By: #### 2 4356-8 ####[facility]ORATORYCLIA [id number] [address] Leukocyte esterase Test strip Ql (U) Negative Normal Negative [facility] Comment on above: Order Comment: Speci men Type: URINE SPECIMENOrdering Facility: [facility] Address: [address] [address] Performed By: #### 2 4356-8 ####[facility]ORATORYCLIA [id number] [address] [place] Nitrite Ql (U) Negative Normal Negative [facility] Comment on above: Order Comment: Speci men Type: URINE SPECIMENOrdering Facility: [facility] Address: [address] [place] [address] Performed By: #### 2 4356-8 ####[facility] LABORATORYCLIA [id number] [address] [place] pH (U) 6.0 [pH] Normal 5.0-8.0 [facility] Comment on above: Order Comment: Speci men Type: URINE SPECIMENOrdering Facility: [facility] Address: [address] [place] [address] Performed By: #### 2 4356-8 ####[facility] LABORATORYCLIA [id number] [address] [place] Protein (U) [Mass/Vol] 1+ Abnormal Negative [facility] Comment on above: Order Comment: Speci men Type: URINE SPECIMENOrdering Facility: [facility] Address: [address] [place] [address] Performed By: #### 2 4356-8 ####[facility]PITALCLIA [id number] [address] STATES [facility] RBC LM.HPF (Urine sed) [#/Area] 0-3 /HPF Normal 0-3 /HPF [facility] Comment on above: Order Comment: Speci men Type: URINE SPECIMENOrdering Facility: [facility] Address: [address] [place] [address] Performed By: #### 2 4356-8 ####[facility] LABORATORYCLIA [id number] [address] [place] Specific gravity (U) [Rel density] 1.018 Normal 1.005-1.030 [facility] Comment on above: Order Comment: Speci men Type: URINE SPECIMENOrdering Facility: [facility] Address: [address] [place] [address] Performed By: #### 2 4356-8 ####[facility] LABORATORYCLIA [id number] [address] Urobilinogen Ql (U) Normal Normal Negative [facility] Comment on above: Order Comment: Speci men Type: URINE SPECIMENOrdering Facility: [facility] Address: [address] [place] [address] Performed By: #### 2 4356-8 ####[facility] LABORATORYCLIA [id number] [address] WBC LM.HPF (Urine sed) [#/Area] 0-5 /HPF Normal 0-5 /HPF [facility] Comment on above: Order Comment: Speci men Type: URINE SPECIMENOrdering Facility: [facility] Address: [address] [place], [place] [address] [address] Performed By: #### 2 4356-8 ####[facility] LABORATORYCLIA [id number] [address] STATES OF [facility] Vancomycin random [Mass/Vol] on 07-23-2021 Vancomycin [Mass/Vol] 12.9 ug/mL Normal 10.0-20.0 [facility] Comment on above: Order Comment: Speci men Type: BLOOD SPECIMENOrdering Facility: [facility] Address: [address] [place] [address] Result Comment: Refe rence ranges and high/low indicator flags are provided as general guidelines only. The treating physician must determine appropriate target levels/dosing based on the specific clinical situation. Performed By: #### 4 091-5 ####[facility] LABORATORYCLIA [id number] [address] XR CHEST 1V FRONTALon 2021 XR CHEST 1V FRONTAL Normal [facility] XR CHEST 1V FRONTAL Normal [facility] aPTT PPPon 07-23-2021 aPTT Coag (PPP) [Time] 32.3 s Normal 23.0-32.4 [facility] Comment on above: Order Comment: Speci men Type: BLOOD SPECIMENOrdering Facility: [facility] Address: [address] [place] [address] Performed By: #### 1 4979-9 ####[facility] LABORATORYCLIA [id number] [address] STATES OF [facility] aPTT Coag (PPP) [Time] 57.9 s High 23.0-32.4 [facility] Comment on above: Order Comment: Speci men Type: BLOOD SPECIMENOrdering Facility: [facility] Address: [address] [place] [address] Performed By: #### 1 4979-9 ####[facility] LABORATORYCLIA [id number] [place] [address] [place] aPTT Coag (PPP) [Time] 46.3 s High 23.0-32.4 [facility] Comment on above: Order Comment: Speci men Type: BLOOD SPECIMENOrdering Facility: [facility] Address: [address] [place] [address] Performed By: #### 1 4979-9 ####[facility] LABORATORYCLIA [id number] [place] [address] [place] Basic metabolic 2000 panelon 07-22-2021 Anion gap [Moles/Vol] 8 mmol/L Low 01-22 [facility] Comment on above: Order Comment: Speci men Type: BLOOD SPECIMENOrdering Facility: [facility] Address: [address] [place] [address] Performed By: #### 2 4321-2 ####[facility] LABORATORYCLIA [id number] [place] [address] [place] Calcium [Mass/Vol] 9.5 mg/dL Normal 8.5-10.2 [facility] Comment on above: Order Comment: Speci men Type: BLOOD SPECIMENOrdering Facility: [facility] Address: [address] [place] [address] Performed By: #### 2 4321-2 ####[facility] LABORATORYCLIA [id number] [place] [address] [place] Chloride [Moles/Vol] 105 mmol/L Normal 97-105 [facility] Comment on above: Order Comment: Speci men Type: BLOOD SPECIMENOrdering Facility: [facility] Address: [address] [place] [address] Performed By: #### 2 4321-2 ####[facility] LABORATORYCLIA [id number] [address] STATES OF [facility] CO2 [Moles/Vol] 32 mmol/L High 22-30 [facility] Comment on above: Order Comment: Speci men Type: BLOOD SPECIMENOrdering Facility: [facility] Address: [address] [place] [address] Performed By: #### 2 4321-2 ####[facility] LABORATORYCLIA [id number] [address] STATES OF [facility] Creatinine [Mass/Vol] 0.75 mg/dL Normal 0.73-1.22 [facility] Comment on above: Order Comment: Speci men Type: BLOOD SPECIMENOrdering Facility: [facility] Address: [address] [place] [address] Performed By: #### 2 4321-2 ####[facility]PITALCLIA [id number] [address] ESTIMATED GLOMERULAR FILTRATION RATE 98 mL/min/1.73m??? Normal >=60 [facility] Comment on above: Order Comment: Speci men Type: BLOOD SPECIMENOrdering Facility: [facility] Address: [address] [place] [address] Result Comment: Luzmaria mated Glomerular Filtration Rate [...] actual GFR. Performed By: #### 2 4321-2 ####[facility] LABORATORYCLIA [id number] [address] STATES OF [facility] Glucose [Mass/Vol] 128 mg/dL High 74-99 [facility] Comment on above: Order Comment: Speci men Type: BLOOD SPECIMENOrdering Facility: [facility] Address: [address] [place] [address] Result Comment: The [place] Diabetes Association (ADA) provides guidance for cutoff [...] Standards of Medical Care in Diabetes 2016, [place] Diabetes Association. Diabetes Care. 2016.39(Suppl 1). Performed By: #### 2 4321-2 ####[facility] LABORATORYCLIA [id number] [address] STATES OF [facility] Potassium [Moles/Vol] 3.7 mmol/L Normal 3.7-5.1 [facility] Comment on above: Order Comment: Shira feldman Type: BLOOD SPECIMENOrdering Facility: [facility] Address: [address] [place] [address] Performed By: #### 2 4321-2 ####[facility] LABORATORYCLIA [id number] [address] [place] Sodium [Moles/Vol] 145 mmol/L High 136-144 [facility] Comment on above: Order Comment: Shira feldman Type: BLOOD SPECIMENOrdering Facility: [facility] Address: [address] [place] [address] Performed By: #### 2 4321-2 ####[facility] LABORATORYCLIA [id number] [address] [place] Urea nitrogen [Mass/Vol] 39 mg/dL High 9-24 [facility] Comment on above: Order Comment: Shira feldman Type: BLOOD SPECIMENOrdering Facility: [facility] Address: [address] [place] [address] Performed By: #### 2 4321-2 ####[facility] LABORATORYCLIA [id number] [address] [place] CASE MANAGEMon 07-22-2021 CASE MANAGEM Normal [facility] CBC W Auto Differential pane l (Bld)on 07-22-2021 Basophils (Bld) [#/Vol] 0.06 10*3/uL Normal <0.11 [facility] Comment on above: Order Comment: Speci men Type: BLOOD SPECIMENOrdering Facility: [facility] Address: [address] [place] [address] Performed By: #### 5 7021-8 ####[facility]ORATORYCLIA [id number] [address] [place] Basophils/100 WBC (Bld) 0.5 % Normal [facility] Comment on above: Order Comment: Speci men Type: BLOOD SPECIMENOrdering Facility: [facility] Address: [address] [place] [address] Performed By: #### 5 7021-8 ####[facility]ATORYCLIA [id number] [address] [place] Differential cell count method Nom (Bld) Auto Normal [facility] Comment on above: Order Comment: Speci men Type: BLOOD SPECIMENOrdering Facility: [facility] Address: [address] [place] [address] Performed By: #### 5 7021-8 ####[facility]ORATORYCLIA [id number] [place] [address] [place] Eosinophils (Bld) [#/Vol] 0.44 10*3/uL Normal <0.46 [facility] Comment on above: Order Comment: Speci men Type: BLOOD SPECIMENOrdering Facility: [facility] Address: [address] [address] Performed By: #### 5 7021-8 ####[facility]ATORYCLIA [id number] [address] [place] Eosinophils/100 WBC (Bld) 3.9 % Normal [facility] Comment on above: Order Comment: Speci men Type: BLOOD SPECIMENOrdering Facility: [facility] Address: [address] [place] [address] Performed By: #### 5 7021-8 ####[facility]ORATORYCLIA [id number] [address] Erythrocyte distribution width (RBC) [Ratio] 17.0 % High 11.5-15.0 [facility] Comment on above: Order Comment: Speci men Type: BLOOD SPECIMENOrdering Facility: [facility] Address: [address] [place] [address] Performed By: #### 5 7021-8 ####[facility] LABORATORYCLIA [id number] [address] Hematocrit (Bld) [Volume fraction] 32.0 % Low 39.0-51.0 [facility] Comment on above: Order Comment: Speci men Type: BLOOD SPECIMENOrdering Facility: [facility] Address: [address] [place] [address] Performed By: #### 5 7021-8 ####[facility]ORATORYCLIA [id number] [address] Hemoglobin (Bld) [Mass/Vol] 9.3 g/dL Low 13.0-17.0 [facility] Comment on above: Order Comment: Speci men Type: BLOOD SPECIMENOrdering Facility: [facility] Address: [address] [place] [address] Performed By: #### 5 7021-8 ####[facility] LABORATORYCLIA [id number] [address] IMMATURE GRAN % 0.5 % Normal [facility] Comment on above: Order Comment: Speci men Type: BLOOD SPECIMENOrdering Facility: [facility] Address: [address] [place] [address] Performed By: #### 5 7021-8 ####[facility] LABORATORYCLIA [id number] [address] IMMATURE GRAN ABS 0.06 k/uL Normal <0.10 [facility] Comment on above: Order Comment: Speci men Type: BLOOD SPECIMENOrdering Facility: [facility] Address: [address] [place] [address] Performed By: #### 5 7021-8 ####[facility] LABORATORYCLIA [id number] [address] Lymphocytes (Bld) [#/Vol] 1.83 10*3/uL Normal 1.00-4.00 [facility] Comment on above: Order Comment: Speci men Type: BLOOD SPECIMENOrdering Facility: [facility] Address: [address] [place] [address] Performed By: #### 5 7021-8 ####[facility] LABORATORYCLIA [id number] [address] Lymphocytes/100 WBC (Bld) 16.1 % Normal [facility] Comment on above: Order Comment: Speci men Type: BLOOD SPECIMENOrdering Facility: [facility] Address: [address] [place] [address] Performed By: #### 5 7021-8 ####[facility]ORATORYCLIA [id number] [address] STATES [facility] MCH (RBC) [Entitic mass] 27.0 pg Normal 26.0-34.0 [facility] Comment on above: Order Comment: Speci men Type: BLOOD SPECIMENOrdering Facility: [facility] Address: [address] [place] [address] Performed By: #### 5 7021-8 ####[facility] LABORATORYCLIA [id number] [address] [place] MCHC (RBC) [Mass/Vol] 29.1 g/dL Low 30.5-36.0 [facility] Comment on above: Order Comment: Speci men Type: BLOOD SPECIMENOrdering Facility: [facility] Address: [address] [place] [address] Performed By: #### 5 7021-8 ####[facility] LABORATORYCLIA [id number] [place] [address] [place] MCV (RBC) [Entitic vol] 92.8 fL Normal 80.0-100.0 [facility] Comment on above: Order Comment: Speci men Type: BLOOD SPECIMENOrdering Facility: [facility] Address: [address] [place] [address] Performed By: #### 5 7021-8 ####[facility] LABORATORYCLIA [id number] [place] [address] [place] Monocytes (Bld) [#/Vol] 0.87 10*3/uL High <0.87 [facility] Comment on above: Order Comment: Speci men Type: BLOOD SPECIMENOrdering Facility: [facility] Address: [address] [place] [address] Performed By: #### 5 7021-8 ####[facility]ORATORYCLIA [id number] [address] [place] Monocytes/100 WBC (Bld) 7.6 % Normal [facility] Comment on above: Order Comment: Speci men Type: BLOOD SPECIMENOrdering Facility: [facility] Address: [address] [place] [address] Performed By: #### 5 7021-8 ####[facility] LABORATORYCLIA [id number] [place] [address] [place] Neutrophils (Bld) [#/Vol] 8.12 10*3/uL High 1.45-7.50 [facility] Comment on above: Order Comment: Speci men Type: BLOOD SPECIMENOrdering Facility: [facility] Address: [address] [place] [address] Performed By: #### 5 7021-8 ####[facility]ORATORYCLIA [id number] [address] [place] Neutrophils/100 WBC (Bld) 71.4 % Normal [facility] Comment on above: Order Comment: Speci men Type: BLOOD SPECIMENOrdering Facility: [facility] Address: [address] [place] [address] Performed By: #### 5 7021-8 ####[facility]ORATORYCLIA [id number] [place] [address] [place] Nucleated RBC (Bld) [#/Vol] 10*3/uL Normal <0.01 [facility] Comment on above: Order Comment: Speci men Type: BLOOD SPECIMENOrdering Facility: [facility] Address: [address] [place] [address] Performed By: #### 5 7021-8 ####[facility]ORATORYCLIA [id number] [address] [place] Nucleated RBC/100 WBC (Bld) [Ratio] 0.0 /100 WBC Normal [facility] Comment on above: Order Comment: Speci men Type: BLOOD SPECIMENOrdering Facility: [facility] Address: [address] [place] [address] Performed By: #### 5 7021-8 ####[facility]ORATORYCLIA [id number] [address] [place] Platelet mean volume (Bld) [Entitic vol] 10.8 fL Normal 9.0-12.7 [facility] Comment on above: Order Comment: Speci men Type: BLOOD SPECIMENOrdering Facility: [facility] Address: [address] [place] [address] Performed By: #### 5 7021-8 ####[facility]ORATORYCLIA [id number] [address] [place] Platelets (Bld) [#/Vol] 362 10*3/uL Normal 150-400 [facility] Comment on above: Order Comment: Speci men Type: BLOOD SPECIMENOrdering Facility: [facility] Address: [address] [place] [address] Performed By: #### 5 7021-8 ####[facility]ORATORYCLIA [id number] [address] [place] RBC (Bld) [#/Vol] 3.45 10*6/uL Low 4.20-6.00 [facility] Comment on above: Order Comment: Speci men Type: BLOOD SPECIMENOrdering Facility: [facility] Address: [address] [place] [address] Performed By: #### 5 7021-8 ####[facility]ORATORYCLIA [id number] [place] [address] [place] WBC (Bld) [#/Vol] 11.38 10*3/uL High 3.70-11.00 [facility] Comment on above: Order Comment: Speci men Type: BLOOD SPECIMENOrdering Facility: [facility] Address: [address] [place] [address] Performed By: #### 5 7021-8 ####[facility]ORATORYCLIA [id number] [address] [place] Magnesium SerPl-mCncon 07-22 Magnesium [Mass/Vol] 2.3 mg/dL Normal 1.7-2.3 [facility] Comment on above: Order Comment: Speci men Type: BLOOD SPECIMENOrdering Facility: [facility] Address: [address] [place] [address] Performed By: #### 1 9123-9, 2777-1, 23729-8 ####[facility]ORATORYCLIA [id number] [address] [place] NT-proBNP SerPl-ncon 07-22 Natriuretic peptide.B prohormone N-Terminal [Mass/Vol] 328 pg/mL High <125 [facility] Comment on above: Order Comment: Speci men Type: BLOOD SPECIMENOrdering Facility: [facility] Address: [address] [place] [address] Performed By: #### 1 9123-9, 2777-1, 36862-7 ####[facility] LABORATORYCLIA [id number] [place] [address] [place] NURSING PROGon 07-22-2021 NURSING PROG Normal [facility] NUTRITIONon 07-22-2021 NUTRITION Normal [facility] Phosphate SerPl-mCncon 07-22 Phosphate [Mass/Vol] 3.5 mg/dL Normal 2.7-4.8 [facility] Comment on above: Order Comment: Speci men Type: BLOOD SPECIMENOrdering Facility: [facility] Address: [address] [place], [place] [address] [place] [address] Performed By: #### 1 9123-9, 2777-1, 14199-9 ####[facility] LABORATORYCLIA [id number] [address] OF [facility] THERAPY NTon 07-22-2021 THERAPY NT Normal [facility] THERAPY NT Normal [facility] aPTT PPPon 07-22-2021 aPTT Coag (PPP) [Time] 50.1 s High 23.0-32.4 [facility] Comment on above: Order Comment: Speci men Type: BLOOD SPECIMENOrdering Facility: [facility] Address: [address] [place] [address] Performed By: #### 1 4979-9 ####[facility]ORATORYCLIA [id number] [address] [place] ALLIED HEALTHon 07-21-2021 ALLIED HEALTH Normal [facility] Bacteria Spec Resp Culton Bacteria identified Respiratory culture Nom (Unsp spec) Abnormal [facility] Comment on above: Performed By: #### 3 2355-0 ####[facility]ORATORYCLIA [id number] [address] [place] Basic metabolic 2000 panelon 07-21-2021 Anion gap [Moles/Vol] 9 mmol/L Normal -18 [facility] Comment on above: Order Comment: Speci men Type: BLOOD SPECIMENOrdering Facility: [facility] Address: [address] [place], [place] [address] [place] [address] Performed By: #### 1 9123-9, 2777-1, 47230-6 ####[facility]ORATORYCLIA [id number] [address] STATES OF [facility] Calcium [Mass/Vol] 9.9 mg/dL Normal 8.5-10.2 [facility] Comment on above: Order Comment: Speci men Type: BLOOD SPECIMENOrdering Facility: [facility] Address: [address] [place] [address] Performed By: #### 1 9123-9, 2777, 01985-2 ####[facility]ORATORYCLIA [id number] [place] [address] [place] Chloride [Moles/Vol] 103 mmol/L Normal 97-105 [facility] Comment on above: Order Comment: Speci men Type: BLOOD SPECIMENOrdering Facility: [facility] Address: [address] [place] [address] Performed By: #### 1 9123-9, 27711-04, ####[facility]ORATORYCLIA [id number] [place] [address] [place] CO2 [Moles/Vol] 33 mmol/L High 22-30 [facility] Comment on above: Order Comment: Speci men Type: BLOOD SPECIMENOrdering Facility: [facility] Address: [address] [place] [address] Performed By: #### 1 9123-9, 2776-05, ####[facility]ORATORYCLIA [id number] [address] STATES OF [facility] Creatinine [Mass/Vol] 0.80 mg/dL Normal 0.73-1.22 [facility] Comment on above: Order Comment: Speci men Type: BLOOD SPECIMENOrdering Facility: [facility] Address: [address] [place] [address] Performed By: #### 1 9123-9, 27711-04, 04108-9 ####[facility]ORATORYCLIA [id number] [address] ESTIMATED GLOMERULAR FILTRATION RATE 96 mL/min/1.73m??? Normal >=60 [facility] Comment on above: Order Comment: Speci men Type: BLOOD SPECIMENOrdering Facility: [facility] Address: [address] [place] [address] Result Comment: Luzmaria mated Glomerular Filtration Rate [...] GFR. Performed By: #### 1 9123-9, 2777-, 04857-5 ####[facility]OSPITALIA [id number] [place] [address] [place] Glucose [Mass/Vol] 148 mg/dL High 74-99 [facility] Comment on above: Order Comment: Shira feldman Type: BLOOD SPECIMENOrdering Facility: [facility] Address: [address] [place] [address] Result Comment: The [place] Diabetes Association (ADA) provides guidance for cutoff [...] Standards of Medical Care in Diabetes 2016, [employer] Diabetes [employer]. Diabetes Care. 2016.39(Suppl 1). Performed By: #### 1 9123-9, 2777-, 40315-8 ####[facility] LABORATORYCLIA [id number] [place] [address] [place] Potassium [Moles/Vol] 4.1 mmol/L Normal 3.7-5.1 [facility] Comment on above: Order Comment: Shira feldman Type: BLOOD SPECIMENOrdering Facility: [facility] Address: [address] [address] Performed By: #### 1 9123-9, 2777-, 61612-3 ####[facility]ORATORYCLIA [id number] [address] [place] Sodium [Moles/Vol] 145 mmol/L High 136-144 [facility] Comment on above: Order Comment: Speci men Type: BLOOD SPECIMENOrdering Facility: [facility] Address: [address] [place] [address] Performed By: #### 1 9123-9, 2777-1, 00658-0 ####[facility]ORATORYCLIA [id number] [address] STATES [facility] Urea nitrogen [Mass/Vol] 40 mg/dL High 9-24 [facility] Comment on above: Order Comment: Speci men Type: BLOOD SPECIMENOrdering Facility: [facility] Address: [address] [place] [address] Performed By: #### 1 9123-9, 2777-, 51904-6 ####[facility]ORATORYCLIA [id number] [address] [place] [facility] CBC W Auto Differential pane l (Bld)on 07-21-2021 Basophils (Bld) [#/Vol] 0.06 10*3/uL Normal <0.11 [facility] Comment on above: Order Comment: Speci men Type: BLOOD SPECIMENOrdering Facility: [facility] Address: [address] [place] [address] Performed By: #### 5 7021-8 ####[facility]ORATORYCLIA [id number] [address] [place] Basophils/100 WBC (Bld) 0.4 % Normal [facility] Comment on above: Order Comment: Speci men Type: BLOOD SPECIMENOrdering Facility: [facility] Address: [address] [place] [address] Performed By: #### 5 7021-8 ####[facility]ORATORYCLIA [id number] [address] [place] [facility] Differential cell count method Nom (Bld) Auto Normal [facility] Comment on above: Order Comment: Speci men Type: BLOOD SPECIMENOrdering Facility: [facility] Address: [address] [address] Performed By: #### 5 7021-8 ####[facility]ORATORYCLIA [id number] [address] Eosinophils (Bld) [#/Vol] 0.04 10*3/uL Normal <0.46 [facility] Comment on above: Order Comment: Speci men Type: BLOOD SPECIMENOrdering Facility: [facility] Address: [address] [address] Performed By: #### 5 7021-8 ####[facility]ORATORYCLIA [id number] [address] Eosinophils/100 WBC (Bld) 0.3 % Normal [facility] Comment on above: Order Comment: Speci men Type: BLOOD SPECIMENOrdering Facility: [facility] Address: [address] [place] [address] Performed By: #### 5 7021-8 ####[facility]ORATORYCLIA [id number] [address] Erythrocyte distribution width (RBC) [Ratio] 17.0 % High 11.5-15.0 [facility] Comment on above: Order Comment: Speci men Type: BLOOD SPECIMENOrdering Facility: [facility] Address: [address] [place] [address] Performed By: #### 5 7021-8 ####[facility]ORATORYCLIA [id number] [address] Hematocrit (Bld) [Volume fraction] 33.1 % Low 39.0-51.0 [facility] Comment on above: Order Comment: Speci men Type: BLOOD SPECIMENOrdering Facility: [facility] Address: [address] [place] [address] Performed By: #### 5 7021-8 ####[facility]ORATORYCLIA [id number] [address] Hemoglobin (Bld) [Mass/Vol] 9.7 g/dL Low 13.0-17.0 [facility] Comment on above: Order Comment: Speci men Type: BLOOD SPECIMENOrdering Facility: [facility] Address: [address] [place] [address] Performed By: #### 5 7021-8 ####[facility] LABORATORYCLIA [id number] [address] IMMATURE GRAN % 0.5 % Normal [facility] Comment on above: Order Comment: Speci men Type: BLOOD SPECIMENOrdering Facility: [facility] Address: [address] [place] [address] Performed By: #### 5 7021-8 ####[facility]ATORYCLIA [id number] [address] IMMATURE GRAN ABS 0.07 k/uL Normal <0.10 [facility] Comment on above: Order Comment: Speci men Type: BLOOD SPECIMENOrdering Facility: [facility] Address: [address] [place] [address] Performed By: #### 5 7021-8 ####[facility]ATORYCLIA [id number] [address] Lymphocytes (Bld) [#/Vol] 1.99 10*3/uL Normal 1.00-4.00 [facility] Comment on above: Order Comment: Speci men Type: BLOOD SPECIMENOrdering Facility: [facility] Address: [address] [place] [address] Performed By: #### 5 7021-8 ####[facility]ATORYCLIA [id number] [address] Lymphocytes/100 WBC (Bld) 13.4 % Normal [facility] Comment on above: Order Comment: Speci men Type: BLOOD SPECIMENOrdering Facility: [facility] Address: [address] [place] [address] Performed By: #### 5 7021-8 ####[facility]ORATORYCLIA [id number] [address] MCH (RBC) [Entitic mass] 27.2 pg Normal 26.0-34.0 [facility] Comment on above: Order Comment: Speci men Type: BLOOD SPECIMENOrdering Facility: [facility] Address: [address] [place] [address] Performed By: #### 5 7021-8 ####[facility]ORATORYCLIA [id number] [address] MCHC (RBC) [Mass/Vol] 29.3 g/dL Low 30.5-36.0 [facility] Comment on above: Order Comment: Speci men Type: BLOOD SPECIMENOrdering Facility: [facility] Address: [address] [place] [address] Performed By: #### 5 7021-8 ####[facility]ORATORYCLIA [id number] [address] MCV (RBC) [Entitic vol] 92.7 fL Normal 80.0-100.0 [facility] Comment on above: Order Comment: Speci men Type: BLOOD SPECIMENOrdering Facility: [facility] Address: [address] [place] [address] Performed By: #### 5 7021-8 ####[facility] LABORATORYCLIA [id number] [address] OF [facility] Monocytes (Bld) [#/Vol] 1.10 10*3/uL High <0.87 [facility] Comment on above: Order Comment: Speci men Type: BLOOD SPECIMENOrdering Facility: [facility] Address: [address] [place] [address] Performed By: #### 5 7021-8 ####[facility]ORATORYCLIA [id number] [address] Monocytes/100 WBC (Bld) 7.4 % Normal [facility] Comment on above: Order Comment: Speci men Type: BLOOD SPECIMENOrdering Facility: [facility] Address: [address] [place] [address] Performed By: #### 5 7021-8 ####[facility] LABORATORYCLIA [id number] [address] [place] Neutrophils (Bld) [#/Vol] 11.61 10*3/uL High 1.45-7.50 [facility] Comment on above: Order Comment: Speci men Type: BLOOD SPECIMENOrdering Facility: [facility] Address: [address] [place] [address] Performed By: #### 5 7021-8 ####[facility]ORATORYCLIA [id number] [address] [place] Neutrophils/100 WBC (Bld) 78.0 % Normal [facility] Comment on above: Order Comment: Speci men Type: BLOOD SPECIMENOrdering Facility: [facility] Address: [address] [place] [address] Performed By: #### 5 7021-8 ####[facility]ORATORYCLIA [id number] [address] [place] Nucleated RBC (Bld) [#/Vol] 10*3/uL Normal <0.01 [facility] Comment on above: Order Comment: Speci men Type: BLOOD SPECIMENOrdering Facility: [facility] Address: [address] [place] [address] Performed By: #### 5 7021-8 ####[facility]ORATORYCLIA [id number] [address] [place] Nucleated RBC/100 WBC (Bld) [Ratio] 0.0 /100 WBC Normal [facility] Comment on above: Order Comment: Speci men Type: BLOOD SPECIMENOrdering Facility: [facility] Address: [address] [place] [address] Performed By: #### 5 7021-8 ####[facility]ORATORYCLIA [id number] [address] [place] Platelet mean volume (Bld) [Entitic vol] 10.4 fL Normal 9.0-12.7 [facility] Comment on above: Order Comment: Speci men Type: BLOOD SPECIMENOrdering Facility: [facility] Address: [address] [place] [address] Performed By: #### 5 7021-8 ####[facility] LABORATORYCLIA [id number] [address] OF [facility] Platelets (Bld) [#/Vol] 396 10*3/uL Normal 150-400 [facility] Comment on above: Order Comment: Speci men Type: BLOOD SPECIMENOrdering Facility: [facility] Address: [address] [place] [address] Performed By: #### 5 7021-8 ####[facility] LABORATORYCLIA [id number] [address] [facility] RBC (Bld) [#/Vol] 3.57 10*6/uL Low 4.20-6.00 [facility] Comment on above: Order Comment: Speci men Type: BLOOD SPECIMENOrdering Facility: [facility] Address: [address] [place] [address] Performed By: #### 5 7021-8 ####[facility] LABORATORYCLIA [id number] [address] [facility] WBC (Bld) [#/Vol] 14.87 10*3/uL High 3.70-11.00 [facility] Comment on above: Order Comment: Speci men Type: BLOOD SPECIMENOrdering Facility: [facility] Address: [address] [place] [address] Performed By: #### 5 7021-8 ####[facility] LABORATORYCLIA [id number] [address] Gas and Carbon monoxide pane l (BldV)on 07-21-2021 Base excess Calc (BldV) [Moles/Vol] 7 mmol/L High 0-2 [facility] Comment on above: Order Comment: Speci men Type: VENOUS BLOOD SPECIMENOrdering Facility: [facility] Address: [address] [place] [address] Performed By: #### 2 4344-4 ####[facility] LABORATORYCLIA [id number] [address] Body temperature 98.6 [degF] Normal [facility] Comment on above: Order Comment: Speci men Type: VENOUS BLOOD SPECIMENOrdering Facility: [facility] Address: [address] [place] [address] Performed By: #### 2 4344-4 ####[facility] LABORATORYCLIA [id number] [address] [place] CALCIUM IONIZED, PH CORRECTED 1.21 mmol/L Normal 1.08-1.30 [facility] Comment on above: Order Comment: Speci men Type: VENOUS BLOOD SPECIMENOrdering Facility: [facility] Address: [address] [place] [address] Performed By: #### 2 4344-4 ####[facility] LABORATORYCLIA [id number] [address] STATES OF [facility] Calcium.ionized (BldV) [Mass/Vol] 1.23 mmol/L Normal 1.08-1.30 [facility] Comment on above: Order Comment: Speci men Type: VENOUS BLOOD SPECIMENOrdering Facility: [facility] Address: [address] [place] [address] Performed By: #### 2 4344-4 ####[facility] LABORATORYCLIA [id number] [address] [place] Carboxyhemoglobin (BldV) [Mass fraction] 2.3 % High 0.0-2.0 [facility] Comment on above: Order Comment: Speci men Type: VENOUS BLOOD SPECIMENOrdering Facility: [facility] Address: [address] [place] [address] Result Comment: Carb oxyhemoglobin Reference Range for Smokers: 2.0-8.0% Performed By: #### 2 4344-4 ####[facility] LABORATORYCLIA [id number] [place] [address] [place] CO2 (BldV) [Partial pressure] 58 mm[Hg] High 42-55 [facility] Comment on above: Order Comment: Speci men Type: VENOUS BLOOD SPECIMENOrdering Facility: [facility] Address: [address] [place] [address] Performed By: #### 2 4344-4 ####[facility] LABORATORYCLIA [id number] [place] [address] [place] CO2 [Moles/Vol] 31 mmol/L High 25-29 [facility] Comment on above: Order Comment: Speci men Type: VENOUS BLOOD SPECIMENOrdering Facility: [facility] Address: [address] [place] [address] Performed By: #### 2 4344-4 ####[facility] LABORATORYCLIA [id number] [place] [address] [place] Glucose [Mass/Vol] 146 mg/dL High 60-105 [facility] Comment on above: Order Comment: Speci men Type: VENOUS BLOOD SPECIMENOrdering Facility: [facility] Address: [address] [place] [address] Performed By: #### 2 4344-4 ####[facility] LABORATORYCLIA [id number] [place] [address] [place] HCO3 (Bld) [Moles/Vol] 33 mmol/L High 24-28 [facility] Comment on above: Order Comment: Speci men Type: VENOUS BLOOD SPECIMENOrdering Facility: [facility] Address: [address] [place] [address] Performed By: #### 2 4344-4 ####[facility] LABORATORYCLIA [id number] [place] [address] [place] Hematocrit (Bld) [Volume fraction] 30.1 % Low 39.0-51.0 [facility] Comment on above: Order Comment: Speci men Type: VENOUS BLOOD SPECIMENOrdering Facility: [facility] Address: [address] [place] [address] Performed By: #### 2 4344-4 ####[facility] LABORATORYCLIA [id number] [address] [place] Hemoglobin (Bld) [Mass/Vol] 9.7 g/dL Low 13.0-17.0 [facility] Comment on above: Order Comment: Speci men Type: VENOUS BLOOD SPECIMENOrdering Facility: [facility] Address: [address] [place] [address] Performed By: #### 2 4344-4 ####[facility] LABORATORYCLIA [id number] [address] [place] Methemoglobin (Bld) [Mass fraction] % Normal 0.0-1.5 [facility] Comment on above: Order Comment: Speci men Type: VENOUS BLOOD SPECIMENOrdering Facility: [facility] Address: [address] [place] [address] Performed By: #### 2 4344-4 ####[facility] LABORATORYCLIA [id number] [address] O2 THERAPY NC = Nasal Cannula Normal [facility] Comment on above: Order Comment: Speci men Type: VENOUS BLOOD SPECIMENOrdering Facility: [facility] Address: [address] [place] [address] Performed By: #### 2 4344-4 ####[facility] LABORATORYCLIA [id number] [address] Oxygen (BldV) [Partial pressure] 64 mm[Hg] High 35-45 [facility] Comment on above: Order Comment: Speci men Type: VENOUS BLOOD SPECIMENOrdering Facility: [facility] Address: [address] [place] [address] Performed By: #### 2 4344-4 ####[facility] LABORATORYCLIA [id number] [address] Oxygen saturation in Blood 90 % High 60-85 [facility] Comment on above: Order Comment: Speci men Type: VENOUS BLOOD SPECIMENOrdering Facility: [facility] Address: [address] [place] [address] Performed By: #### 2 4344-4 ####[facility] LABORATORYCLIA [id number] [address] [place] Oxyhemoglobin (BldV) [Mass fraction] 87 % High 60-85 [facility] Comment on above: Order Comment: Speci men Type: VENOUS BLOOD SPECIMENOrdering Facility: [facility] Address: [address] [place] [address] Performed By: #### 2 4344-4 ####[facility] LABORATORYCLIA [id number] [place] [address] [place] pH (BldV) 7.38 [pH] Normal 7.32-7.42 [facility] Comment on above: Order Comment: Speci men Type: VENOUS BLOOD SPECIMENOrdering Facility: [facility] Address: [address] [place] [address] Performed By: #### 2 4344-4 ####[facility] LABORATORYCLIA [id number] [place] [address] [place] Potassium [Moles/Vol] 3.8 mmol/L Normal 3.5-5.0 [facility] Comment on above: Order Comment: Speci men Type: VENOUS BLOOD SPECIMENOrdering Facility: [facility] Address: [address] [place] [address] Performed By: #### 2 4344-4 ####[facility]ORATORYCLIA [id number] [place] [address] [place] Sodium [Moles/Vol] 145 mmol/L High 136-144 [facility] Comment on above: Order Comment: Speci men Type: VENOUS BLOOD SPECIMENOrdering Facility: [facility] Address: [address] [place] [address] Performed By: #### 2 4344-4 ####[facility] LABORATORYCLIA [id number] [place] [address] [place] Base excess Calc (BldV) [Moles/Vol] 8 mmol/L High 0-2 [facility] Comment on above: Order Comment: Speci men Type: VENOUS BLOOD SPECIMENOrdering Facility: [facility] Address: [address] [place] [address] Performed By: #### 2 4344-4 ####[facility] LABORATORYCLIA [id number] [address] Body temperature 100.22 [degF] Normal [facility] Comment on above: Order Comment: Speci men Type: VENOUS BLOOD SPECIMENOrdering Facility: [facility] Address: [address] [place] [address] Performed By: #### 2 4344-4 ####[facility] LABORATORYCLIA [id number] [address] STATES OF [facility] CALCIUM IONIZED, PH CORRECTED 1.25 mmol/L Normal 1.08-1.30 [facility] Comment on above: Order Comment: Speci men Type: VENOUS BLOOD SPECIMENOrdering Facility: [facility] Address: [address] [place] [address] Performed By: #### 2 4344-4 ####[facility]ORATORYCLIA [id number] [address] Calcium.ionized (BldV) [Mass/Vol] 1.24 mmol/L Normal 1.08-1.30 [facility] Comment on above: Order Comment: Speci men Type: VENOUS BLOOD SPECIMENOrdering Facility: [facility] Address: [address] [place] [address] Performed By: #### 2 4344-4 ####[facility] LABORATORYCLIA [id number] [address] [place] Carboxyhemoglobin (BldV) [Mass fraction] 2.5 % High 0.0-2.0 [facility] Comment on above: Order Comment: Speci men Type: VENOUS BLOOD SPECIMENOrdering Facility: [facility] Address: [address] [place] [address] Result Comment: Carb oxyhemoglobin Reference Range for Smokers: 2.0-8.0% Performed By: #### 2 4344-4 ####[facility]ATORYCLIA [id number] [address] [place] CO2 (BldV) [Partial pressure] 53 mm[Hg] Normal 42-55 [facility] Comment on above: Order Comment: Speci men Type: VENOUS BLOOD SPECIMENOrdering Facility: [facility] Address: [address] [place] [address] Performed By: #### 2 4344-4 ####[facility]ATORYCLIA [id number] [address] [place] CO2 [Moles/Vol] 31 mmol/L High 25-29 [facility] Comment on above: Order Comment: Speci men Type: VENOUS BLOOD SPECIMENOrdering Facility: [facility] Address: [address] [place] [address] Performed By: #### 2 4344-4 ####[facility]ORATORYCLIA [id number] [address] CO2 adjusted to patient's actual temperature (BldV) [Partial pressure] 56 mmHg High 42-55 [facility] Comment on above: Order Comment: Speci men Type: VENOUS BLOOD SPECIMENOrdering Facility: [facility] Address: [address] [place] [address] Performed By: #### 2 4344-4 ####[facility]ORATORYCLIA [id number] [place] [address] [place] Glucose [Mass/Vol] 131 mg/dL High 60-105 [facility] Comment on above: Order Comment: Speci men Type: VENOUS BLOOD SPECIMENOrdering Facility: [facility] Address: [address] [place] [address] Performed By: #### 2 4344-4 ####[facility]ORATORYCLIA [id number] [address] [place] HCO3 (Bld) [Moles/Vol] 33 mmol/L High 24-28 [facility] Comment on above: Order Comment: Speci men Type: VENOUS BLOOD SPECIMENOrdering Facility: [facility] Address: [address] [place] [address] Performed By: #### 2 4344-4 ####[facility]ORATORYCLIA [id number] [address] Hematocrit (Bld) [Volume fraction] 30.8 % Low 39.0-51.0 [facility] Comment on above: Order Comment: Speci men Type: VENOUS BLOOD SPECIMENOrdering Facility: [facility] Address: [address] [place] [address] Performed By: #### 2 4344-4 ####[facility]ORATORYCLIA [id number] [address] OF [facility] Hemoglobin (Bld) [Mass/Vol] 10.0 g/dL Low 13.0-17.0 [facility] Comment on above: Order Comment: Speci men Type: VENOUS BLOOD SPECIMENOrdering Facility: [facility] Address: [address] [place] [address] Performed By: #### 2 4344-4 ####[facility]ORATORYCLIA [id number] [address] Methemoglobin (Bld) [Mass fraction] % Normal 0.0-1.5 [facility] Comment on above: Order Comment: Speci men Type: VENOUS BLOOD SPECIMENOrdering Facility: [facility] Address: [address] [place] [address] Performed By: #### 2 4344-4 ####[facility]ORATORYCLIA [id number] [address] O2 THERAPY NC = Nasal Cannula Normal [facility] Comment on above: Order Comment: Speci men Type: VENOUS BLOOD SPECIMENOrdering Facility: [facility] Address: [address] [place] [address] Performed By: #### 2 4344-4 ####[facility]ORATORYCLIA [id number] [address] Oxygen (BldV) [Partial pressure] 58 mm[Hg] High 35-45 [facility] Comment on above: Order Comment: Speci men Type: VENOUS BLOOD SPECIMENOrdering Facility: [facility] Address: [address] [place] [address] Performed By: #### 2 4344-4 ####[facility] LABORATORYCLIA [id number] [address] [place] Oxygen adjusted to patient's actual temperature (BldV) [Partial pressure] 61 mmHg High 35-45 [facility] Comment on above: Order Comment: Speci men Type: VENOUS BLOOD SPECIMENOrdering Facility: [facility] Address: [address] [place] [address] Performed By: #### 2 4344-4 ####[facility]ORATORYCLIA [id number] [address] [place] Oxygen saturation in Blood 88 % High 60-85 [facility] Comment on above: Order Comment: Speci men Type: VENOUS BLOOD SPECIMENOrdering Facility: [facility] Address: [address] [place] [address] Performed By: #### 2 4344-4 ####[facility]ORATORYCLIA [id number] [address] [place] Oxyhemoglobin (BldV) [Mass fraction] 85 % Normal 60-85 [facility] Comment on above: Order Comment: Speci men Type: VENOUS BLOOD SPECIMENOrdering Facility: [facility] Address: [address] [place] [address] Performed By: #### 2 4344-4 ####[facility]ATORYCLIA [id number] [address] [place] pH (BldV) 7.41 [pH] Normal 7.32-7.42 [facility] Comment on above: Order Comment: Speci men Type: VENOUS BLOOD SPECIMENOrdering Facility: [facility] Address: [address] [place] [address] Performed By: #### 2 4344-4 ####[facility]ATORYCLIA [id number] [address] [place] pH adjusted to patient's actual temperature (BldV) 7.40 Normal 7.32-7.42 [facility] Comment on above: Order Comment: Speci men Type: VENOUS BLOOD SPECIMENOrdering Facility: [facility] Address: [address] [place] [address] Performed By: #### 2 4344-4 ####[facility]ORATORYCLIA [id number] [place] [address] [place] Potassium [Moles/Vol] 4.0 mmol/L Normal 3.5-5.0 [facility] Comment on above: Order Comment: Speci men Type: VENOUS BLOOD SPECIMENOrdering Facility: [facility] Address: [address] [place] [address] Performed By: #### 2 4344-4 ####[facility] LABORATORYCLIA [id number] [address] STATES [facility] Sodium [Moles/Vol] 146 mmol/L High 136-144 [facility] Comment on above: Order Comment: Speci men Type: VENOUS BLOOD SPECIMENOrdering Facility: [facility] Address: [address] [place] [address] Performed By: #### 2 4344-4 ####[facility] LABORATORYCLIA [id number] [place] [address] [place] Magnesium SerPl-mCncon 07-21 Magnesium [Mass/Vol] 2.5 mg/dL High 1.7-2.3 [facility] Comment on above: Order Comment: Speci men Type: BLOOD SPECIMENOrdering Facility: [facility] Address: [address] [place] [address] Performed By: #### 1 9123-9, 2777-1, 92357-6 ####[facility]ORATORYCLIA [id number] [place] [address] [place] NURSING PROGon 07-21-2021 NURSING PROG Normal [facility] Phosphate SerPl-mCncon 07-21 Phosphate [Mass/Vol] 3.7 mg/dL Normal 2.7-4.8 [facility] Comment on above: Order Comment: Speci men Type: BLOOD SPECIMENOrdering Facility: [facility] Address: [address] [place] [address] Performed By: #### 1 9123-9, 2777-1, 38723-9 ####[facility] LABORATORYCLIA [id number] [address] STATES OF [facility] THERAPY NTon 07-21-2021 THERAPY NT Normal [facility] XR CHEST 1V FRONTALon 2021 XR CHEST 1V FRONTAL Normal [facility] aPTT PPPon 07-21-2021 aPTT Coag (PPP) [Time] 53.0 s High 23.0-32.4 [facility] Comment on above: Order Comment: Speci men Type: BLOOD SPECIMENOrdering Facility: [facility] Address: [address] [place] [address] Performed By: #### 1 4979-9 ####[facility]ORATORYCLIA [id number] [address] [place] ALLIED HEALTHon 07-20-2021 ALLIED HEALTH Normal [facility] Basic metabolic 2000 panelon 07-20-2021 Anion gap [Moles/Vol] 8 mmol/L Low 9-18 [facility] Comment on above: Order Comment: Speci men Type: BLOOD SPECIMENOrdering Facility: [facility] Address: [address] [place] [address] Performed By: #### 2 4321-2, 12016-0, 2777-1 ####[facility]ORATORYCLIA [id number] [address] OF [facility] Calcium [Mass/Vol] 9.7 mg/dL Normal 8.5-10.2 [facility] Comment on above: Order Comment: Speci men Type: BLOOD SPECIMENOrdering Facility: [facility] Address: [address] [place] [address] Performed By: #### 2 4321-2, , 2776-05 ####[facility]ORATORYCLIA [id number] [place] [address] [place] Chloride [Moles/Vol] 104 mmol/L Normal 97-105 [facility] Comment on above: Order Comment: Speci men Type: BLOOD SPECIMENOrdering Facility: [facility] Address: [address] [place] [address] Performed By: #### 2 4321-2, , 2776-05 ####[facility]ORATORYCLIA [id number] [place] [id number] [place] CO2 [Moles/Vol] 34 mmol/L High 22-30 [facility] Comment on above: Order Comment: Speci men Type: BLOOD SPECIMENOrdering Facility: [facility] Address: [address] [place] [address] Performed By: #### 2 4321-2, , 2776-05 ####[facility]ITALCL[facility] [id number] [address] STATES OF [facility] Creatinine [Mass/Vol] 0.76 mg/dL Normal 0.73-1.22 [facility] Comment on above: Order Comment: Speci men Type: BLOOD SPECIMENOrdering Facility: [facility] Address: [address] [place] [address] Performed By: #### 2 4321-2, , 2776-05 ####[facility]ORATORYCLIA [id number] [address] ESTIMATED GLOMERULAR FILTRATION RATE 97 mL/min/1.73m??? Normal >=60 [facility] Comment on above: Order Comment: Speci men Type: BLOOD SPECIMENOrdering Facility: [facility] Address: [address] [place] [address] Result Comment: Luzmaria mated Glomerular Filtration Rate [...] Performed By: #### 2 4321-2, , 2776-05 ####[facility]ORATORYCLIA [id number] [place] [address] [place] Glucose [Mass/Vol] 123 mg/dL High 74-99 [facility] Comment on above: Order Comment: Speci men Type: BLOOD SPECIMENOrdering Facility: [facility] Address: [address] [place] [address] Result Comment: The [place] Diabetes Association (ADA) provides guidance for cutoff [...] Standards of Medical Care in Diabetes 2016, [employer]. Diabetes Care. 2016.39(Suppl 1). Performed By: #### 2 4321-2, , 2776-05 ####[facility] LABORATORYCLIA [id number] [place] [address] [place] Potassium [Moles/Vol] 4.4 mmol/L Normal 3.7-5.1 [facility] Comment on above: Order Comment: Shira feldman Type: BLOOD SPECIMENOrdering Facility: [facility] Address: [address] [place] [address] Performed By: #### 2 4321-2, , 2776-05 ####[facility]ORATORYCLIA [id number] [place] [address] [place] Sodium [Moles/Vol] 146 mmol/L High 136-144 [facility] Comment on above: Order Comment: Speci men Type: BLOOD SPECIMENOrdering Facility: [facility] Address: [address] [place] [address] Performed By: #### 2 4321-2, , 2776-05 ####[facility]ORATORYCLIA [id number] [address] [place] Urea nitrogen [Mass/Vol] 38 mg/dL High 9-24 [facility] Comment on above: Order Comment: Speci men Type: BLOOD SPECIMENOrdering Facility: [facility] Address: [address] [place] [address] Performed By: #### 2 4321-2, , 2776-05 ####[facility]ORATORYCLIA [id number] [address] [place] CASE MANAGEMon 07-20-2021 CASE MANAGEM Normal [facility] CBC W Auto Differential pane l (Bld)on 07-20-2021 Basophils (Bld) [#/Vol] 0.05 10*3/uL Normal <0.11 [facility] Comment on above: Order Comment: Speci men Type: BLOOD SPECIMENOrdering Facility: [facility] Address: [address] [place] [address] Performed By: #### 5 7021-8 ####[facility]ORATORYCLIA [id number] [address] [place] Basophils/100 WBC (Bld) 0.5 % Normal [facility] Comment on above: Order Comment: Speci men Type: BLOOD SPECIMENOrdering Facility: [facility] Address: [address] [place] [address] Performed By: #### 5 7021-8 ####[facility]ORATORYCLIA [id number] [address] STATES OF [facility] Differential cell count method Nom (Bld) Auto Normal [facility] Comment on above: Order Comment: Speci men Type: BLOOD SPECIMENOrdering Facility: [facility] Address: [address] [place] [address] Performed By: #### 5 7021-8 ####[facility]ATORYCLIA [id number] [address] STATES OF [facility] Eosinophils (Bld) [#/Vol] 0.43 10*3/uL Normal <0.46 [facility] Comment on above: Order Comment: Speci men Type: BLOOD SPECIMENOrdering Facility: [facility] Address: [address] [place] [address] Performed By: #### 5 7021-8 ####[facility]ORYCLIA [id number] [address] Eosinophils/100 WBC (Bld) 4.1 % Normal [facility] Comment on above: Order Comment: Speci men Type: BLOOD SPECIMENOrdering Facility: [facility] Address: [address] [place] [address] Performed By: #### 5 7021-8 ####[facility]ATORYCLIA [id number] [address] Erythrocyte distribution width (RBC) [Ratio] 16.7 % High 11.5-15.0 [facility] Comment on above: Order Comment: Speci men Type: BLOOD SPECIMENOrdering Facility: [facility] Address: [address] [place] [address] Performed By: #### 5 7021-8 ####[facility]ATORYCLIA [id number] [address] Hematocrit (Bld) [Volume fraction] 33.0 % Low 39.0-51.0 [facility] Comment on above: Order Comment: Speci men Type: BLOOD SPECIMENOrdering Facility: [facility] Address: [address] [place] [address] Performed By: #### 5 7021-8 ####[facility] LABORATORYCLIA [id number] [address] Hemoglobin (Bld) [Mass/Vol] 9.7 g/dL Low 13.0-17.0 [facility] Comment on above: Order Comment: Speci men Type: BLOOD SPECIMENOrdering Facility: [facility] Address: [address] [place] [address] Performed By: #### 5 7021-8 ####[facility] LABORATORYCLIA [id number] [address] IMMATURE GRAN % 0.4 % Normal [facility] Comment on above: Order Comment: Speci men Type: BLOOD SPECIMENOrdering Facility: [facility] Address: [address] [place] [address] Performed By: #### 5 7021-8 ####[facility] LABORATORYCLIA [id number] [address] IMMATURE GRAN ABS 0.04 k/uL Normal <0.10 [facility] Comment on above: Order Comment: Speci men Type: BLOOD SPECIMENOrdering Facility: [facility] Address: [address] [place] [address] Performed By: #### 5 7021-8 ####[facility] LABORATORYCLIA [id number] [address] [address] Lymphocytes (Bld) [#/Vol] 1.99 10*3/uL Normal 1.00-4.00 [facility] Comment on above: Order Comment: Speci men Type: BLOOD SPECIMENOrdering Facility: [facility] Address: [address] [place] [address] Performed By: #### 5 7021-8 ####[facility] LABORATORYCLIA [id number] [address] Lymphocytes/100 WBC (Bld) 18.8 % Normal [facility] Comment on above: Order Comment: Speci men Type: BLOOD SPECIMENOrdering Facility: [facility] Address: [address] [place] [address] Performed By: #### 5 7021-8 ####[facility]ORATORYCLIA [id number] [address] MCH (RBC) [Entitic mass] 27.8 pg Normal 26.0-34.0 [facility] Comment on above: Order Comment: Speci men Type: BLOOD SPECIMENOrdering Facility: [facility] Address: [address] [place] [address] Performed By: #### 5 7021-8 ####[facility] LABORATORYCLIA [id number] [address] STATES [facility] MCHC (RBC) [Mass/Vol] 29.4 g/dL Low 30.5-36.0 [facility] Comment on above: Order Comment: Speci men Type: BLOOD SPECIMENOrdering Facility: [facility] Address: [address] [place] [address] Performed By: #### 5 7021-8 ####[facility] LABORATORYCLIA [id number] [address] STATES OF [facility] MCV (RBC) [Entitic vol] 94.6 fL Normal 80.0-100.0 [facility] Comment on above: Order Comment: Speci men Type: BLOOD SPECIMENOrdering Facility: [facility] Address: [address] [place] [address] Performed By: #### 5 7021-8 ####[facility] LABORATORYCLIA [id number] [address] Monocytes (Bld) [#/Vol] 0.82 10*3/uL Normal <0.87 [facility] Comment on above: Order Comment: Speci men Type: BLOOD SPECIMENOrdering Facility: [facility] Address: [address] [place] [address] Performed By: #### 5 7021-8 ####[facility] LABORATORYCLIA [id number] [address] Monocytes/100 WBC (Bld) 7.8 % Normal [facility] Comment on above: Order Comment: Speci men Type: BLOOD SPECIMENOrdering Facility: [facility] Address: [address] [place] [address] Performed By: #### 5 7021-8 ####[facility] LABORATORYCLIA [id number] [place] [address] [place] Neutrophils (Bld) [#/Vol] 7.23 10*3/uL Normal 1.45-7.50 [facility] Comment on above: Order Comment: Speci men Type: BLOOD SPECIMENOrdering Facility: [facility] Address: [address] [place] [address] Performed By: #### 5 7021-8 ####[facility] LABORATORYCLIA [id number] [address] [place] Neutrophils/100 WBC (Bld) 68.4 % Normal [facility] Comment on above: Order Comment: Speci men Type: BLOOD SPECIMENOrdering Facility: [facility] Address: [address] [place] [address] Performed By: #### 5 7021-8 ####[facility] LABORATORYCLIA [id number] [address] [place] Nucleated RBC (Bld) [#/Vol] 10*3/uL Normal <0.01 [facility] Comment on above: Order Comment: Speci men Type: BLOOD SPECIMENOrdering Facility: [facility] Address: [address] [place] [address] Performed By: #### 5 7021-8 ####[facility] LABORATORYCLIA [id number] [address] [place] Nucleated RBC/100 WBC (Bld) [Ratio] 0.0 /100 WBC Normal [facility] Comment on above: Order Comment: Speci men Type: BLOOD SPECIMENOrdering Facility: [facility] Address: [address] [place] [address] Performed By: #### 5 7021-8 ####[facility] LABORATORYCLIA [id number] [address] [place] Platelet mean volume (Bld) [Entitic vol] 10.5 fL Normal 9.0-12.7 [facility] Comment on above: Order Comment: Speci men Type: BLOOD SPECIMENOrdering Facility: [facility] Address: [address] [place] [address] Performed By: #### 5 7021-8 ####[facility] LABORATORYCLIA [id number] [address] Platelets (Bld) [#/Vol] 400 10*3/uL Normal 150-400 [facility] Comment on above: Order Comment: Speci men Type: BLOOD SPECIMENOrdering Facility: [facility] Address: [address] [place] [address] Performed By: #### 5 7021-8 ####[facility] LABORATORYCLIA [id number] [address] OF [facility] RBC (Bld) [#/Vol] 3.49 10*6/uL Low 4.20-6.00 [facility] Comment on above: Order Comment: Speci men Type: BLOOD SPECIMENOrdering Facility: [facility] Address: [address] [place] [address] Performed By: #### 5 7021-8 ####[facility] LABORATORYCLIA [id number] [address] WBC (Bld) [#/Vol] 10.56 10*3/uL Normal 3.70-11.00 [facility] Comment on above: Order Comment: Speci men Type: BLOOD SPECIMENOrdering Facility: [facility] Address: [address] [place] [address] Performed By: #### 5 7021-8 ####[facility] LABORATORYCLIA [id number] [address] CONSULT PROGon 07-20-2021 CONSULT PROG Normal [facility] CT BRAIN WO IVCONon 07-21-[address] BRAIN WO IVCON Normal [facility] Magnesium SerPl-mCncon 07-20 Magnesium [Mass/Vol] 2.4 mg/dL High 1.7-2.3 [facility] Comment on above: Order Comment: Speci men Type: BLOOD SPECIMENOrdering Facility: [facility] Address: [address] [place], [place] [address] Performed By: #### 2 4321-2, 06705-3, 2777-1 ####[facility] LABORATORYCLIA [id number] [place] [address] [place] NUTRITIONon 07-20-2021 NUTRITION Normal [facility] Phosphate SerPl-mCncon 07-20 Phosphate [Mass/Vol] 4.1 mg/dL Normal 2.7-4.8 [facility] Comment on above: Order Comment: Speci men Type: BLOOD SPECIMENOrdering Facility: [facility] Address: [address] [place] [address] Performed By: #### 2 4321-2, 68535-4, 2777- ####[facility] LABORATORYCLIA [id number] [address] [place] aPTT PPPon 07-20-2021 aPTT Coag (PPP) [Time] 53.6 s High 23.0-32.4 [facility] Comment on above: Order Comment: Speci men Type: BLOOD SPECIMENOrdering Facility: [facility] Address: [address] [place] [address] Performed By: #### 1 4979-9 ####[facility]OSPITALCLIA [id number] [place] [address] [place] Bacteria CSF Culton 07-20-19 22 Bacteria identified Cx Nom (CSF) CULTURE, CSF: No growth 14 days GRAM STAIN: No organisms seen No Polymorphonuclear Leukocytes Rare Mononuclear cells Gram stain performed on cytospun specimen. Normal [facility] Comment on above: Performed By: #### 6 06-4 ####[facility] LABORATORYCLIA [id number] [place] [address] [place] CONSULT PROGon 07-19-2021 CONSULT PROG Normal [facility] CSF MANUAL DIFFon 07-19-2021 DIF TTL, CSF 100 cells counted Normal [facility] Comment on above: Order Comment: Speci men Type: CEREBROSPINAL FLUIDOrdering Facility: [facility] Address: [address] [place] [address] Performed By: #### L [id number], 57730-1, [id number] ####[facility]ORATORYCLIA [id number] [place] [address] [place] EOSIN%, CSF 1 % Normal [facility] Comment on above: Order Comment: Speci men Type: CEREBROSPINAL FLUIDOrdering Facility: [facility] Address: [address] [place] [address] Performed By: #### L [id number], 18506-5, [id number] ####[facility]ORATORYCLIA [id number] [place] [address] [place] LYMPH%, CSF 67 % Normal 50-90 [facility] Comment on above: Order Comment: Speci men Type: CEREBROSPINAL FLUIDOrdering Facility: [facility] Address: [address] [place] [address] Performed By: #### L [id number], 15203-7, [id number] ####[facility]ORATORYCLIA [id number] [place] [address] [place] MACRO%, CSF 1 % High <1 [facility] Comment on above: Order Comment: Speci men Type: CEREBROSPINAL FLUIDOrdering Facility: [facility] Address: [address] [place] [address] Performed By: #### L [id number], 27455-3, [id number] ####[facility]ORATORYCLIA [id number] [address] [place] MONO%, CSF 18 % Normal 10-50 [facility] Comment on above: Order Comment: Speci men Type: CEREBROSPINAL FLUIDOrdering Facility: [facility] Address: [address] [place] [address] Performed By: #### L OF8002, 87208-6, [id number] ####[facility]ORATORYCLIA [id number] [place] [address] [place] NEUT%, CSF 11 % High 0-3 [facility] Comment on above: Order Comment: Speci men Type: CEREBROSPINAL FLUIDOrdering Facility: [facility] Address: [address] [place] [address] Performed By: #### L [id number], 13305-0, [id number] ####[facility] LABORATORYCLIA [id number] [address] OTHER CL%, CSF 2 % Normal [facility] Comment on above: Order Comment: Speci men Type: CEREBROSPINAL FLUIDOrdering Facility: [facility] Address: [address] [place] [address] Result Comment: Path review to follow. Performed By: #### L [id number], 05519-6, [id number] ####[facility] LABORATORYCLIA [id number] [address] CSF PATHOLOGIST INTERP (LAB REFLEX ORDER-NO BILL)on 07-19-2021 CSF STAFF REVIEW Normal [facility] Comment on above: Order Comment: Speci men Type: CEREBROSPINAL FLUIDOrdering Facility: [facility] Address: [address] [place] [address] Performed By: #### L [id number], 45886-7, [id number] ####[facility] LABORATORYCLIA [id number] [address] Pathologist name Reviewed by Wing Cummings MD [facility] Comment on above: Order Comment: Speci men Type: CEREBROSPINAL FLUIDOrdering Facility: [facility] Address: [address] [place] [address] Performed By: #### L [id number], 51908-1, [id number] ####[facility]ORATORYCLIA [id number] [address] Cell count panel (CSF)on Clarity (CSF) Clear Normal Clear [facility] Comment on above: Order Comment: Speci men Type: CEREBROSPINAL FLUIDOrdering Facility: [facility] Address: [address] [place] [address] Performed By: #### L [id number], 49735-2, [id number] ####[facility]ORATORYCLIA [id number] [address] Clarity (Unsp spec) Not Indicated Normal Clear [facility] Comment on above: Order Comment: Speci men Type: CEREBROSPINAL FLUIDOrdering Facility: [facility] Address: [address] [place] [address] Performed By: #### L LL9239, 13114-0, [id number] ####[facility]ORATORYCLIA [id number] [address] Color (CSF) Colorless Normal Colorless [facility] Comment on above: Order Comment: Speci men Type: CEREBROSPINAL FLUIDOrdering Facility: [facility] Address: [address] [place] [address] Performed By: #### L [id number], 48112-9, PPH3346 ####[facility]ORATORYCLIA [id number] [address] Color (Spun CSF) Not Indicated Normal Colorless [facility] Comment on above: Order Comment: Speci men Type: CEREBROSPINAL FLUIDOrdering Facility: [facility] Address: [address] [place] [address] Performed By: #### L [id number], 61072-3, [id number] ####[facility]ORATORYCLIA [id number] [address] CSF [employer] Normal [facility] Comment on above: Order Comment: Speci men Type: CEREBROSPINAL FLUIDOrdering Facility: [facility] Address: [address] [address] Performed By: #### L [id number], 81260-5, [id number] ####[facility]ORATORYCLIA [id number] [address] RBC Manual cnt (CSF) [#/Vol] 0 cells/uL Normal 0-5 [facility] Comment on above: Order Comment: Speci men Type: CEREBROSPINAL FLUIDOrdering Facility: [facility] Address: [address] [place] [address] Performed By: #### L BV4008, 72540-1, [id number] ####[facility] LABORATORYCLIA [id number] [address] STATES OF [facility] WBC Manual cnt (CSF) [#/Vol] 2 cells/uL Normal 0-5 [facility] Comment on above: Order Comment: Speci men Type: CEREBROSPINAL FLUIDOrdering Facility: [facility] Address: [address] [place] [address] Performed By: #### L [id number], 89896-0, [id number] ####[facility] LABORATORYCLIA [id number] [address] Glucose CSF-[facility] 2 Glucose (CSF) [Mass/Vol] 69 mg/dL Normal 40-70 [facility] Comment on above: Order Comment: Speci men Type: CEREBROSPINAL FLUIDOrdering Facility: [facility] Address: [address] [place] [address] Result Comment: Lumb ar CSF glucose values of healthy patients are approximately 60% of the plasma values and must always be compared with a concurrently measured plasma value for adequate clinical interpretation.References: 1. Glucose HK (GLUC3) [package insert V 12.0 [place]]. [employer], [place], [place]. September 2015. 2. Michelle Moore, Loki HGarfield (2015). Chapter 7: Glucose and Lactate. FGarfield Alcocer al.(eds.), Cerebrospinal Fluid in Clinical Neurology. [place]: [employer]. Performed By: #### 2 342-4, 2880-3 ####[facility] LABORATORYCLIA [id number] [address] [place] NURSING PROGon 07-19-2021 NURSING PROG Normal [facility] NURSING PROG Normal [facility] Prot CSF-mCncon 07-19-2021 Protein (CSF) [Mass/Vol] 51 mg/dL High 15-45 [facility] Comment on above: Order Comment: Speci men Type: CEREBROSPINAL FLUIDOrdering Facility: [facility] Address: [address] [address] Performed By: #### 2 342-4, 2880-3 ####[facility] LABORATORYCLIA [id number] [address] OF [facility] THERAPY NTon 07-19-2021 THERAPY NT Normal [facility] Urinalysis complete panel (U )on 07-19-2021 Bilirubin Ql (U) Negative Normal Negative [facility] Comment on above: Order Comment: Speci men Type: URINE SPECIMENOrdering Facility: [facility] Address: [address] [place] [address] Performed By: #### 2 4356-8 ####[facility] LABORATORYCLIA [id number] [address] Clarity (Unsp spec) Clear Normal Clear [facility] Comment on above: Order Comment: Speci men Type: URINE SPECIMENOrdering Facility: [facility] Address: [address] [place] [address] Performed By: #### 2 4356-8 ####[facility] LABORATORYCLIA [id number] [address] STATES [facility] Color (U) Colorless Normal yellow [facility] Comment on above: Order Comment: Speci men Type: URINE SPECIMENOrdering Facility: [facility] Address: [address] [place] [address] Performed By: #### 2 4356-8 ####[facility] LABORATORYCLIA [id number] [address] Glucose Test strip (U) [Mass/Vol] Negative Normal Negative [facility] Comment on above: Order Comment: Speci men Type: URINE SPECIMENOrdering Facility: [facility] Address: [facility] [place] [address] Performed By: #### 2 4356-8 ####[facility] LABORATORYCLIA [id number] [address] [place] Hemoglobin Ql (U) Trace Abnormal Negative [facility] Comment on above: Order Comment: Speci men Type: URINE SPECIMENOrdering Facility: [facility] Address: [address] [place] [address] Performed By: #### 2 4356-8 ####[facility]ORATORYCLIA [id number] [address] Hyaline casts (Urine sed) [#/Area] 1-3 /LPF Abnormal 0 /LPF [facility] Comment on above: Order Comment: Speci men Type: URINE SPECIMENOrdering Facility: [facility] Address: [address] [place] [address] Performed By: #### 2 4356-8 ####[facility] LABORATORYCLIA [id number] [address] Ketones Ql (U) Negative Normal Negative [facility] Comment on above: Order Comment: Speci men Type: URINE SPECIMENOrdering Facility: [facility] Address: [address] [place] [address] Performed By: #### 2 4356-8 ####[facility] LABORATORYCLIA [id number] [address] Leukocyte esterase Test strip Ql (U) Negative Normal Negative [facility] Comment on above: Order Comment: Speci men Type: URINE SPECIMENOrdering Facility: [facility] Address: [address] [place] [address] Performed By: #### 2 4356-8 ####[facility] LABORATORYCLIA [id number] [address] [place] Nitrite Ql (U) Negative Normal Negative [facility] Comment on above: Order Comment: Speci men Type: URINE SPECIMENOrdering Facility: [facility] Address: [address] [place] [address] Performed By: #### 2 4356-8 ####[facility]ATORYCLIA [id number] [address] [place] pH (U) 7.0 [pH] Normal 5.0-8.0 [facility] Comment on above: Order Comment: Speci men Type: URINE SPECIMENOrdering Facility: [facility] Address: [address] [place] [address] Performed By: #### 2 4356-8 ####[facility] LABORATORYCLIA [id number] [address] Protein (U) [Mass/Vol] Negative Normal Negative [facility] Comment on above: Order Comment: Speci men Type: URINE SPECIMENOrdering Facility: [facility] Address: [address] [place] [address] Performed By: #### 2 4356-8 ####[facility] LABORATORYCLIA [id number] [address] RBC LM.HPF (Urine sed) [#/Area] 6-10 /HPF Abnormal 0-3 /HPF [facility] Comment on above: Order Comment: Speci men Type: URINE SPECIMENOrdering Facility: [facility] Address: [address] [place] [address] Performed By: #### 2 4356-8 ####[facility]ORATORYCLIA [id number] [address] Specific gravity (U) [Rel density] 1.008 Normal 1.005-1.030 [facility] Comment on above: Order Comment: Speci men Type: URINE SPECIMENOrdering Facility: [facility] Address: [address] [place] [address] Performed By: #### 2 4356-8 ####[facility] LABORATORYCLIA [id number] [address] Urobilinogen Ql (U) Normal Normal Negative [facility] Comment on above: Order Comment: Speci men Type: URINE SPECIMENOrdering Facility: [facility] Address: [address] [place] [address] Performed By: #### 2 4356-8 ####[facility] LABORATORYCLIA [id number] [address] WBC LM.HPF (Urine sed) [#/Area] 0-5 /HPF Normal 0-5 /HPF [facility] Comment on above: Order Comment: Speci men Type: URINE SPECIMENOrdering Facility: [facility] Address: [address] [place] [address] Performed By: #### 2 4356-8 ####[facility] LABORATORYCLIA [id number] [address] STATES OF [facility] Vancomycin random [Mass/Vol] on 07-19-2021 Vancomycin [Mass/Vol] 13.9 ug/mL Normal 10.0-20.0 [facility] Comment on above: Order Comment: Speci men Type: BLOOD SPECIMENOrdering Facility: [facility] Address: [address] [place] [address] Result Comment: Refe rence ranges and high/low indicator flags are provided as general guidelines only. The treating physician must determine appropriate target levels/dosing based on the specific clinical situation. Performed By: #### 4 091-5 ####[facility]ITALCLIA [id number] [address] aPTT PPPon 07-19-2021 aPTT Coag (PPP) [Time] 53.9 s High 23.0-32.4 [facility] Comment on above: Order Comment: Speci men Type: BLOOD SPECIMENOrdering Facility: [facility] Address: [address] [place] [address] Performed By: #### 1 4979-9 ####[facility] LABORATORYCLIA [id number] [address] [place] Basic metabolic 2000 panelon 07-18-2021 Anion gap [Moles/Vol] 6 mmol/L Low 9-18 [facility] Comment on above: Order Comment: Speci men Type: BLOOD SPECIMENOrdering Facility: [facility] Address: [address] [place] [address] Performed By: #### 2 4321-2, 32417-3, 2777-1 ####[facility] LABORATORYCLIA [id number] [address] [place] Calcium [Mass/Vol] 9.4 mg/dL Normal 8.5-10.2 [facility] Comment on above: Order Comment: Speci men Type: BLOOD SPECIMENOrdering Facility: [facility] Address: [address] [place] [address] Performed By: #### 2 4321-2, , 2776-05 ####[facility] LABORATORYCLIA [id number] [place] [address] [place] Chloride [Moles/Vol] 103 mmol/L Normal 97-105 [facility] Comment on above: Order Comment: Speci men Type: BLOOD SPECIMENOrdering Facility: [facility] Address: [address] [place] [address] Performed By: #### 2 4321-2, , 2776-05 ####[facility]ORATORYCLIA [id number] [address] [place] CO2 [Moles/Vol] 34 mmol/L High 22-30 [facility] Comment on above: Order Comment: Speci men Type: BLOOD SPECIMENOrdering Facility: [facility] Address: [address] [place] [address] Performed By: #### 2 4321-2, , 2776-05 ####[facility] LABORATORYCLIA [id number] [address] [place] Creatinine [Mass/Vol] 0.75 mg/dL Normal 0.73-1.22 [facility] Comment on above: Order Comment: Speci men Type: BLOOD SPECIMENOrdering Facility: [facility] Address: [address] [place] [address] Performed By: #### 2 4321-2, , 2776-05 ####[facility] LABORATORYCLIA [id number] [address] [place] ESTIMATED GLOMERULAR FILTRATION RATE 98 mL/min/1.73m??? Normal >=60 [facility] Comment on above: Order Comment: Speci men Type: BLOOD SPECIMENOrdering Facility: [facility] Address: [address] [place] [address] Result Comment: Luzmaria mated Glomerular Filtration Rate [...] #### 2 4321-2, , 2776-05 ####[facility]ITALCLIA [id number] [place] [address] [place] Glucose [Mass/Vol] 125 mg/dL High 74-99 [facility] Comment on above: Order Comment: Shira feldman Type: BLOOD SPECIMENOrdering Facility: [facility] Address: [address] Result Comment: The [place] Diabetes Association (ADA) provides guidance for cutoff [...] Standards of Medical Care in Diabetes 2016, [place] Diabetes Association. Diabetes Care. 2016.39(Suppl 1). Performed By: #### 2 4321-2, , 2776-05 ####[facility] LABORATORYCLIA [id number] [place] [address] [place] Potassium [Moles/Vol] 4.4 mmol/L Normal 3.7-5.1 [facility] Comment on above: Order Comment: Shira [facility] Type: BLOOD SPECIMENOrdering Facility: [facility] Address: [address] [id number] Performed By: #### 2 4321-2, , 2776-05 ####[facility] LABORATORYCLIA [id number] [address] [place] Sodium [Moles/Vol] 143 mmol/L Normal 136-144 [facility] Comment on above: Order Comment: Speci men Type: BLOOD SPECIMENOrdering Facility: [facility] [facility] Address: [address] [place] [address] Performed By: #### 2 4321-2, , 2776-05 ####[facility] LABORATORYCLIA [id number] [address] [place] Urea nitrogen [Mass/Vol] 33 mg/dL High 9-24 [facility] Comment on above: Order Comment: Speci men Type: BLOOD SPECIMENOrdering Facility: [facility] Address: [address] [place] [address] Performed By: #### 2 4321-2, , 2776-05 ####[facility] LABORATORYCLIA [id number] [address] [place] CASE MANAGEMon 07-18-2021 CASE MANAGEM Normal [facility] CBC W Auto Differential pane l (Bld)on 07-18-2021 Basophils (Bld) [#/Vol] 0.05 10*3/uL Normal <0.11 [facility] Comment on above: Order Comment: Speci men Type: BLOOD SPECIMENOrdering Facility: [facility] Address: [address] [place] [address] Performed By: #### 5 7021-8 ####[facility] LABORATORYCLIA [id number] [address] STATES [facility] Basophils/100 WBC (Bld) 0.5 % Normal [facility] Comment on above: Order Comment: Speci men Type: BLOOD SPECIMENOrdering Facility: [facility] Address: [address] [place] [address] Performed By: #### 5 7021-8 ####[facility] LABORATORYCLIA [id number] [address] Differential cell count method Nom (Bld) Auto Normal [facility] Comment on above: Order Comment: Speci men Type: BLOOD SPECIMENOrdering Facility: [facility] Address: [address] [place] [address] Performed By: #### 5 7021-8 ####[facility] LABORATORYCLIA [id number] [address] [place] Eosinophils (Bld) [#/Vol] 0.44 10*3/uL Normal <0.46 [facility] Comment on above: Order Comment: Speci men Type: BLOOD SPECIMENOrdering Facility: [facility] Address: [address] [place] [address] Performed By: #### 5 7021-8 ####[facility] LABORATORYCLIA [id number] [address] Eosinophils/100 WBC (Bld) 4.3 % Normal [facility] Comment on above: Order Comment: Speci men Type: BLOOD SPECIMENOrdering Facility: [facility] Address: [address] [place] [address] Performed By: #### 5 7021-8 ####[facility] LABORATORYCLIA [id number] [address] Erythrocyte distribution width (RBC) [Ratio] 16.6 % High 11.5-15.0 [facility] Comment on above: Order Comment: Speci men Type: BLOOD SPECIMENOrdering Facility: [facility] Address: [address] [place] [address] Performed By: #### 5 7021-8 ####[facility]ORATORYCLIA [id number] [address] Hematocrit (Bld) [Volume fraction] 32.2 % Low 39.0-51.0 [facility] Comment on above: Order Comment: Speci men Type: BLOOD SPECIMENOrdering Facility: [facility] Address: [address] [place] [address] Performed By: #### 5 7021-8 ####[facility]ORATORYCLIA [id number] [address] STATES OF [facility] Hemoglobin (Bld) [Mass/Vol] 9.5 g/dL Low 13.0-17.0 [facility] Comment on above: Order Comment: Speci men Type: BLOOD SPECIMENOrdering Facility: [facility] Address: [address] [place] [address] Performed By: #### 5 7021-8 ####[facility] LABORATORYCLIA [id number] [address] IMMATURE GRAN % 0.4 % Normal [facility] Comment on above: Order Comment: Speci men Type: BLOOD SPECIMENOrdering Facility: [facility] Address: [address] [place] [address] Performed By: #### 5 7021-8 ####[facility]ATORYCLIA [id number] [address] IMMATURE GRAN ABS 0.04 k/uL Normal <0.10 [facility] Comment on above: Order Comment: Speci men Type: BLOOD SPECIMENOrdering Facility: [facility] Address: [address] [place] [address] Performed By: #### 5 7021-8 ####[facility]ORATORYCLIA [id number] [address] [place] Lymphocytes (Bld) [#/Vol] 1.71 10*3/uL Normal 1.00-4.00 [facility] Comment on above: Order Comment: Speci men Type: BLOOD SPECIMENOrdering Facility: [facility] Address: [address] [place] [address] Performed By: #### 5 7021-8 ####[facility]ORATORYCLIA [id number] [address] Lymphocytes/100 WBC (Bld) 16.9 % Normal [facility] Comment on above: Order Comment: Speci men Type: BLOOD SPECIMENOrdering Facility: [facility] Address: [address] [place] [address] Performed By: #### 5 7021-8 ####[facility]ORATORYCLIA [id number] [address] MCH (RBC) [Entitic mass] 27.9 pg Normal 26.0-34.0 [facility] Comment on above: Order Comment: Speci men Type: BLOOD SPECIMENOrdering Facility: [facility] Address: [address] [place] [address] Performed By: #### 5 7021-8 ####[facility]ORATORYCLIA [id number] [address] MCHC (RBC) [Mass/Vol] 29.5 g/dL Low 30.5-36.0 [facility] Comment on above: Order Comment: Speci men Type: BLOOD SPECIMENOrdering Facility: [facility] Address: [address] [place] [address] Performed By: #### 5 7021-8 ####[facility]ORATORYCLIA [id number] [address] MCV (RBC) [Entitic vol] 94.7 fL Normal 80.0-100.0 [facility] Comment on above: Order Comment: Speci men Type: BLOOD SPECIMENOrdering Facility: [facility] Address: [address] [place] [address] Performed By: #### 5 7021-8 ####[facility]ORATORYCLIA [id number] [address] Monocytes (Bld) [#/Vol] 0.69 10*3/uL Normal <0.87 [facility] Comment on above: Order Comment: Speci men Type: BLOOD SPECIMENOrdering Facility: [facility] Address: [address] [place] [address] Performed By: #### 5 7021-8 ####[facility]ORATORYCLIA [id number] [address] Monocytes/100 WBC (Bld) 6.8 % Normal [facility] Comment on above: Order Comment: Speci men Type: BLOOD SPECIMENOrdering Facility: [facility] Address: [address] [place] [address] Performed By: #### 5 7021-8 ####[facility]ATORYCLIA [id number] [address] [place] Neutrophils (Bld) [#/Vol] 7.19 10*3/uL Normal 1.45-7.50 [facility] Comment on above: Order Comment: Speci men Type: BLOOD SPECIMENOrdering Facility: [facility] Address: [address] [place] [address] Performed By: #### 5 7021-8 ####[facility]ATORYCLIA [id number] [address] [place] Neutrophils/100 WBC (Bld) 71.1 % Normal [facility] Comment on above: Order Comment: Speci men Type: BLOOD SPECIMENOrdering Facility: [facility] Address: [address] [place] [address] Performed By: #### 5 7021-8 ####[facility]ORATORYCLIA [id number] [address] [place] Nucleated RBC (Bld) [#/Vol] 10*3/uL Normal <0.01 [facility] Comment on above: Order Comment: Speci men Type: BLOOD SPECIMENOrdering Facility: [facility] Address: [address] [place] [address] Performed By: #### 5 7021-8 ####[facility]ATORYCLIA [id number] [address] [place] Nucleated RBC/100 WBC (Bld) [Ratio] 0.0 /100 WBC Normal [facility] Comment on above: Order Comment: Speci men Type: BLOOD SPECIMENOrdering Facility: [facility] Address: [address] [place] [address] Performed By: #### 5 7021-8 ####[facility]ORATORYCLIA [id number] [address] [place] Platelet mean volume (Bld) [Entitic vol] 10.3 fL Normal 9.0-12.7 [facility] Comment on above: Order Comment: Speci men Type: BLOOD SPECIMENOrdering Facility: [facility] Address: [address] [place] [address] Performed By: #### 5 7021-8 ####[facility]ORATORYCLIA [id number] [address] [place] Platelets (Bld) [#/Vol] 403 10*3/uL High 150-400 [facility] Comment on above: Order Comment: Speci men Type: BLOOD SPECIMENOrdering Facility: [facility] Address: [address] [place] [address] Performed By: #### 5 7021-8 ####[facility]ORATORYCLIA [id number] [address] STATES OF [facility] RBC (Bld) [#/Vol] 3.40 10*6/uL Low 4.20-6.00 [facility] Comment on above: Order Comment: Speci men Type: BLOOD SPECIMENOrdering Facility: [facility] Address: [address] [place] [address] Performed By: #### 5 7021-8 ####[facility]ORATORYCLIA [id number] [address] [place] WBC (Bld) [#/Vol] 10.12 10*3/uL Normal 3.70-11.00 [facility] Comment on above: Order Comment: Speci men Type: BLOOD SPECIMENOrdering Facility: [facility] Address: [address] [place] [address] Performed By: #### 5 7021-8 ####[facility]ORATORYCLIA [id number] [address] [place] Magnesium SerPl-mCncon 07-18 Magnesium [Mass/Vol] 2.4 mg/dL High 1.7-2.3 [facility] Comment on above: Order Comment: Speci men Type: BLOOD SPECIMENOrdering Facility: [facility] Address: [address] [place] [address] Performed By: #### 2 4321-2, 86067-9, 2777-1 ####[facility]ORATORYCLIA [id number] [address] NURSING PROGon 07-18-2021 NURSING PROG Normal [facility] NURSING PROG Normal [facility] Phosphate SerPl-mCncon 07-18 Phosphate [Mass/Vol] 3.9 mg/dL Normal 2.7-4.8 [facility] Comment on above: Order Comment: Speci men Type: BLOOD SPECIMENOrdering Facility: [facility] Address: [address] [place] [address] Performed By: #### 2 4321-2, , 27711-04 ####[facility]ATORYCLIA [id number] [address] THERAPY NTon 07-18-2021 THERAPY NT Normal [facility] aPTT PPPon 07-18-2021 aPTT Coag (PPP) [Time] 52.3 s High 23.0-32.4 [facility] Comment on above: Order Comment: Speci men Type: BLOOD SPECIMENOrdering Facility: [facility] Address: [address] [place] [address] Performed By: #### 1 4979-9 ####[facility]ATORYCLIA [id number] [address] [place] CBC W Auto Differential pane l (Bld)on 07-17-2021 Basophils (Bld) [#/Vol] 0.05 10*3/uL Normal <0.11 [facility] Comment on above: Order Comment: Speci men Type: BLOOD SPECIMENOrdering Facility: [facility] Address: [address] [place] [address] Performed By: #### 5 7021-8 ####[facility]ORATORYCLIA [id number] [address] Basophils/100 WBC (Bld) 0.5 % Normal [facility] Comment on above: Order Comment: Speci men Type: BLOOD SPECIMENOrdering Facility: [facility] Address: [address] [place] [address] Performed By: #### 5 7021-8 ####[facility]ATORYCLIA [id number] [address] Differential cell count method Nom (Bld) Auto Normal [facility] Comment on above: Order Comment: Speci men Type: BLOOD SPECIMENOrdering Facility: [facility] Address: [address] [place] [address] Performed By: #### 5 7021-8 ####[facility]ATORYCLIA [id number] [address] [place] Eosinophils (Bld) [#/Vol] 0.32 10*3/uL Normal <0.46 [facility] Comment on above: Order Comment: Speci men Type: BLOOD SPECIMENOrdering Facility: [facility] Address: [address] [place] [address] Performed By: #### 5 7021-8 ####[facility]ATORYCLIA [id number] [address] [place] Eosinophils/100 WBC (Bld) 3.4 % Normal [facility] Comment on above: Order Comment: Speci men Type: BLOOD SPECIMENOrdering Facility: [facility] Address: [address] [place] [address] Performed By: #### 5 7021-8 ####[facility]ATORYCLIA [id number] [address] Erythrocyte distribution width (RBC) [Ratio] 16.6 % High 11.5-15.0 [facility] Comment on above: Order Comment: Speci men Type: BLOOD SPECIMENOrdering Facility: [facility] Address: [address] [place] [address] Performed By: #### 5 7021-8 ####[facility]ORATORYCLIA [id number] [address] Hematocrit (Bld) [Volume fraction] 30.7 % Low 39.0-51.0 [facility] Comment on above: Order Comment: Speci men Type: BLOOD SPECIMENOrdering Facility: [facility] Address: [address] [place] [address] Performed By: #### 5 7021-8 ####[facility]ATORYCLIA [id number] [address] Hemoglobin (Bld) [Mass/Vol] 9.0 g/dL Low 13.0-17.0 [facility] Comment on above: Order Comment: Speci men Type: BLOOD SPECIMENOrdering Facility: [facility] Address: [address] [place] [address] Performed By: #### 5 7021-8 ####[facility]ORATORYCLIA [id number] [address] IMMATURE GRAN % 0.6 % Normal [facility] Comment on above: Order Comment: Speci men Type: BLOOD SPECIMENOrdering Facility: [facility] Address: [address] [place] [address] Performed By: #### 5 7021-8 ####[facility]ATORYCLIA [id number] [address] IMMATURE GRAN ABS 0.06 k/uL Normal <0.10 [facility] Comment on above: Order Comment: Speci men Type: BLOOD SPECIMENOrdering Facility: [facility] Address: [address] [place] [address] Performed By: #### 5 7021-8 ####[facility]ORATORYCLIA [id number] [address] Lymphocytes (Bld) [#/Vol] 1.61 10*3/uL Normal 1.00-4.00 [facility] Comment on above: Order Comment: Speci men Type: BLOOD SPECIMENOrdering Facility: [facility] Address: [address] [place] [address] Performed By: #### 5 7021-8 ####[facility]ORATORYCLIA [id number] [address] Lymphocytes/100 WBC (Bld) 17.3 % Normal [facility] Comment on above: Order Comment: Speci men Type: BLOOD SPECIMENOrdering Facility: [facility] Address: [address] [place] [address] Performed By: #### 5 7021-8 ####[facility]ORATORYCLIA [id number] [address] MCH (RBC) [Entitic mass] 26.9 pg Normal 26.0-34.0 [facility] Comment on above: Order Comment: Speci men Type: BLOOD SPECIMENOrdering Facility: [facility] Address: [address] [place] [address] Performed By: #### 5 7021-8 ####[facility]ORATORYCLIA [id number] [address] STATES [facility] MCHC (RBC) [Mass/Vol] 29.3 g/dL Low 30.5-36.0 [facility] Comment on above: Order Comment: Speci men Type: BLOOD SPECIMENOrdering Facility: [facility] Address: [address] [place] [address] Performed By: #### 5 7021-8 ####[facility]ORATORYCLIA [id number] [address] STATES [facility] MCV (RBC) [Entitic vol] 91.9 fL Normal 80.0-100.0 [facility] Comment on above: Order Comment: Speci men Type: BLOOD SPECIMENOrdering Facility: [facility] Address: [address] [place] [address] Performed By: #### 5 7021-8 ####[facility]ORATORYCLIA [id number] [place] [address] [place] Monocytes (Bld) [#/Vol] 0.61 10*3/uL Normal <0.87 [facility] Comment on above: Order Comment: Speci men Type: BLOOD SPECIMENOrdering Facility: [facility] Address: [address] [place] [address] Performed By: #### 5 7021-8 ####[facility]ATORYCLIA [id number] [address] [place] Monocytes/100 WBC (Bld) 6.6 % Normal [facility] Comment on above: Order Comment: Speci men Type: BLOOD SPECIMENOrdering Facility: [facility] Address: [address] [place] [address] Performed By: #### 5 7021-8 ####[facility]ATORYCLIA [id number] [address] [place] Neutrophils (Bld) [#/Vol] 6.64 10*3/uL Normal 1.45-7.50 [facility] Comment on above: Order Comment: Speci men Type: BLOOD SPECIMENOrdering Facility: [facility] Address: [address] [place] [address] Performed By: #### 5 7021-8 ####[facility]ATORYCLIA [id number] [address] [place] Neutrophils/100 WBC (Bld) 71.6 % Normal [facility] Comment on above: Order Comment: Speci men Type: BLOOD SPECIMENOrdering Facility: [facility] Address: [address] [place] [address] Performed By: #### 5 7021-8 ####[facility]ORATORYCLIA [id number] [place] [address] [place] Nucleated RBC (Bld) [#/Vol] 10*3/uL Normal <0.01 [facility] Comment on above: Order Comment: Speci men Type: BLOOD SPECIMENOrdering Facility: [facility] Address: [address] [place] [address] Performed By: #### 5 7021-8 ####[facility]ATORYCLIA [id number] [address] [place] Nucleated RBC/100 WBC (Bld) [Ratio] 0.0 /100 WBC Normal [facility] Comment on above: Order Comment: Speci men Type: BLOOD SPECIMENOrdering Facility: [facility] Address: [address] [place] [address] Performed By: #### 5 7021-8 ####[facility]ATORYCLIA [id number] [address] [place] Platelet mean volume (Bld) [Entitic vol] 10.1 fL Normal 9.0-12.7 [facility] Comment on above: Order Comment: Speci men Type: BLOOD SPECIMENOrdering Facility: [facility] Address: [address] [place] [address] Performed By: #### 5 7021-8 ####[facility]ORATORYCLIA [id number] [address] STATES OF [facility] Platelets (Bld) [#/Vol] 387 10*3/uL Normal 150-400 [facility] Comment on above: Order Comment: Speci men Type: BLOOD SPECIMENOrdering Facility: [facility] Address: [address] [place] [address] Performed By: #### 5 7021-8 ####[facility]ATORYCLIA [id number] [address] [place] RBC (Bld) [#/Vol] 3.34 10*6/uL Low 4.20-6.00 [facility] Comment on above: Order Comment: Speci men Type: BLOOD SPECIMENOrdering Facility: [facility] Address: [address] [place] [address] Performed By: #### 5 7021-8 ####[facility]ATORYCLIA [id number] [address] [place] WBC (Bld) [#/Vol] 9.29 10*3/uL Normal 3.70-11.00 [facility] Comment on above: Order Comment: Speci men Type: BLOOD SPECIMENOrdering Facility: [facility] Address: [address] [place] [address] Performed By: #### 5 7021-8 ####[facility]ORYCLIA [id number] [address] CONSULT PROGon 07-17-2021 CONSULT PROG Normal [facility] Magnesium SerPl-mCncon 07-17 Magnesium [Mass/Vol] 2.3 mg/dL Normal 1.7-2.3 [facility] Comment on above: Order Comment: Speci men Type: BLOOD SPECIMENOrdering Facility: [facility] Address: [address] [place] [address] Performed By: #### 2 777-1, 77194-4 ####[facility]ORATORYCLIA [id number] [address] OF [facility] NURSING PROGon 07-17-2021 NURSING PROG Normal [facility] NURSING PROG Normal [facility] NURSING PROG Normal [facility] Phosphate SerPl-mCncon 07-17 Phosphate [Mass/Vol] 3.6 mg/dL Normal 2.7-4.8 [facility] Comment on above: Order Comment: Speci men Type: BLOOD SPECIMENOrdering Facility: [facility] Address: [address] [place] [address] Performed By: #### 2 777-1, 14105-4 ####[facility]ORYCLIA [id number] [address] [place] aPTT PPPon 07-17-2021 aPTT Coag (PPP) [Time] 57.2 s High 23.0-32.4 [facility] Comment on above: Order Comment: Speci men Type: BLOOD SPECIMENOrdering Facility: [facility] Address: [address] [place] [address] Performed By: #### 1 4979-9 ####[facility]ATORYCLIA [id number] [place] [address] [place] Basic metabolic 2000 panelon 07-16-2021 Anion gap [Moles/Vol] 5 mmol/L Low 9-18 [facility] Comment on above: Order Comment: Speci men Type: BLOOD SPECIMENOrdering Facility: [facility] Address: [address] [place] [address] Performed By: #### 2 777-1, 74754-7, ####[facility]ATORYCLIA [id number] [place] [address] [place] Calcium [Mass/Vol] 9.1 mg/dL Normal 8.5-10.2 [facility] Comment on above: Order Comment: Speci men Type: BLOOD SPECIMENOrdering Facility: [facility] Address: [address] [place] [address] Performed By: #### 2 777-1, 32161-4, ####[facility]ORYCLIA [id number] [place] [address] [place] Chloride [Moles/Vol] 101 mmol/L Normal 97-105 [facility] Comment on above: Order Comment: Speci men Type: BLOOD SPECIMENOrdering Facility: [facility] Address: [address] [place] [address] Performed By: #### 2 777-1, 16773-9, ####[facility]ORYCLIA [id number] [place] [address] [place] CO2 [Moles/Vol] 35 mmol/L High 22-30 [facility] Comment on above: Order Comment: Speci men Type: BLOOD SPECIMENOrdering Facility: [facility] Address: [address] [place] [address] Performed By: #### 2 777-1, 26973-6, ####[facility] LABORATORYCLIA [id number] [place] [address] [place] Creatinine [Mass/Vol] 0.73 mg/dL Normal 0.73-1.22 [facility] Comment on above: Order Comment: Shira feldman Type: BLOOD SPECIMENOrdering Facility: [facility] Address: [address] [id number] Performed By: #### 2 777-1, 25154-1, ####[facility]ORATORYCLIA [id number] [place] [address] [place] ESTIMATED GLOMERULAR FILTRATION RATE 98 mL/min/1.73m??? Normal >=60 [facility] Comment on above: Order Comment: Johncara feldman Type: BLOOD SPECIMENOrdering Facility: [facility] Address: [address] [phone] Result Comment: Luzmaria mated Glomerular Filtration Rate [...] actual GFR. Performed By: #### 2 777-1, 95866-0, ####[facility]ORATORYCLIA [id number] [place] [address] [place] Glucose [Mass/Vol] 133 mg/dL High 74-99 [facility] Comment on above: Order Comment: Shira feldman Type: BLOOD SPECIMENOrdering Facility: [facility] Address: [address] Result Comment: The [place] [employer] (ADA) provides guidance for cutoff [...] Standards of Medical Care in Diabetes 2016, [place] [employer]. Diabetes Care. 2016.39(Suppl 1). Performed By: #### 2 777-1, 57904-2, ####[facility]ORATORYCLIA [id number] [place] [address] [place] Potassium [Moles/Vol] 4.2 mmol/L Normal 3.7-5.1 [facility] Comment on above: Order Comment: Speci men Type: BLOOD SPECIMENOrdering Facility: [facility] Address: [address] [place] [address] Performed By: #### 2 777-1, 61910-4, ####[facility] LABORATORYCLIA [id number] [address] STATES [facility] Sodium [Moles/Vol] 141 mmol/L Normal 136-144 [facility] Comment on above: Order Comment: Speci men Type: BLOOD SPECIMENOrdering Facility: [facility] Address: [address] [place] [address] Performed By: #### 2 777-1, 65442-7, ####[facility] LABORATORYCLIA [id number] [address] STATES [facility] Urea nitrogen [Mass/Vol] 21 mg/dL Normal 9-24 [facility] Comment on above: Order Comment: Speci men Type: BLOOD SPECIMENOrdering Facility: [facility] Address: [address] [place] [address] Performed By: #### 2 777-1, 12475-5, ####[facility] LABORATORYCLIA [id number] [place] [address] [place] CBC W Auto Differential pane l (Bld)on 07-16-2021 Basophils (Bld) [#/Vol] 0.06 10*3/uL Normal <0.11 [facility] Comment on above: Order Comment: Speci men Type: BLOOD SPECIMENOrdering Facility: [facility] Address: [address] [place] [address] Performed By: #### 5 7021-8 ####[facility]ORATORYCLIA [id number] [address] [place] Basophils/100 WBC (Bld) 0.7 % Normal [facility] Comment on above: Order Comment: Speci men Type: BLOOD SPECIMENOrdering Facility: [facility] Address: [address] [place] [address] Performed By: #### 5 7021-8 ####[facility]ORATORYCLIA [id number] [address] [place] Differential cell count method Nom (Bld) Auto Normal [facility] Comment on above: Order Comment: Speci men Type: BLOOD SPECIMENOrdering Facility: [facility] Address: [address] [place] [address] Performed By: #### 5 7021-8 ####[facility]ORATORYCLIA [id number] [address] [place] Eosinophils (Bld) [#/Vol] 0.35 10*3/uL Normal <0.46 [facility] Comment on above: Order Comment: Speci men Type: BLOOD SPECIMENOrdering Facility: [facility] Address: [address] [place] [address] Performed By: #### 5 7021-8 ####[facility]ORATORYCLIA [id number] [address] Eosinophils/100 WBC (Bld) 3.9 % Normal [facility] Comment on above: Order Comment: Speci men Type: BLOOD SPECIMENOrdering Facility: [facility] Address: [address] [place] [address] Performed By: #### 5 7021-8 ####[facility]ORATORYCLIA [id number] [address] [place] Erythrocyte distribution width (RBC) [Ratio] 16.5 % High 11.5-15.0 [facility] Comment on above: Order Comment: Speci men Type: BLOOD SPECIMENOrdering Facility: [facility] Address: [address] [place] [address] Performed By: #### 5 7021-8 ####[facility]ORATORYCLIA [id number] [address] Hematocrit (Bld) [Volume fraction] 30.9 % Low 39.0-51.0 [facility] Comment on above: Order Comment: Speci men Type: BLOOD SPECIMENOrdering Facility: [facility] Address: [address] [place] [address] Performed By: #### 5 7021-8 ####[facility]ORATORYCLIA [id number] [address] Hemoglobin (Bld) [Mass/Vol] 9.1 g/dL Low 13.0-17.0 [facility] Comment on above: Order Comment: Speci men Type: BLOOD SPECIMENOrdering Facility: [facility] Address: [address] [place] [address] Performed By: #### 5 7021-8 ####[facility]ORATORYCLIA [id number] [address] IMMATURE GRAN % 0.4 % Normal [facility] Comment on above: Order Comment: Speci men Type: BLOOD SPECIMENOrdering Facility: [facility] Address: [address] [place] [address] Performed By: #### 5 7021-8 ####[facility]ORATORYCLIA [id number] [address] IMMATURE GRAN ABS 0.04 k/uL Normal <0.10 [facility] Comment on above: Order Comment: Speci men Type: BLOOD SPECIMENOrdering Facility: [facility] Address: [address] [place] [address] Performed By: #### 5 7021-8 ####[facility] LABORATORYCLIA [id number] [address] [place] Lymphocytes (Bld) [#/Vol] 1.35 10*3/uL Normal 1.00-4.00 [facility] Comment on above: Order Comment: Speci men Type: BLOOD SPECIMENOrdering Facility: [facility] Address: [address] [place] [address] Performed By: #### 5 7021-8 ####[facility]ORATORYCLIA [id number] [address] Lymphocytes/100 WBC (Bld) 15.0 % Normal [facility] Comment on above: Order Comment: Speci men Type: BLOOD SPECIMENOrdering Facility: [facility] Address: [address] [place] [address] Performed By: #### 5 7021-8 ####[facility]ORATORYCLIA [id number] [address] MCH (RBC) [Entitic mass] 27.1 pg Normal 26.0-34.0 [facility] Comment on above: Order Comment: Speci men Type: BLOOD SPECIMENOrdering Facility: [facility] Address: [address] [place] [address] Performed By: #### 5 7021-8 ####[facility]ORATORYCLIA [id number] [address] MCHC (RBC) [Mass/Vol] 29.4 g/dL Low 30.5-36.0 [facility] Comment on above: Order Comment: Speci men Type: BLOOD SPECIMENOrdering Facility: [facility] Address: [address] [place] [address] Performed By: #### 5 7021-8 ####[facility]ORATORYCLIA [id number] [address] MCV (RBC) [Entitic vol] 92.0 fL Normal 80.0-100.0 [facility] Comment on above: Order Comment: Speci men Type: BLOOD SPECIMENOrdering Facility: [facility] Address: [address] [place] [address] Performed By: #### 5 7021-8 ####[facility] LABORATORYCLIA [id number] [place] [address] [place] Monocytes (Bld) [#/Vol] 0.53 10*3/uL Normal <0.87 [facility] Comment on above: Order Comment: Speci men Type: BLOOD SPECIMENOrdering Facility: [facility] Address: [address] [place] [address] Performed By: #### 5 7021-8 ####[facility]ORATORYCLIA [id number] [address] [place] Monocytes/100 WBC (Bld) 5.9 % Normal [facility] Comment on above: Order Comment: Speci men Type: BLOOD SPECIMENOrdering Facility: [facility] Address: [address] [place] [address] Performed By: #### 5 7021-8 ####[facility]ORATORYCLIA [id number] [address] [place] Neutrophils (Bld) [#/Vol] 6.67 10*3/uL Normal 1.45-7.50 [facility] Comment on above: Order Comment: Speci men Type: BLOOD SPECIMENOrdering Facility: [facility] Address: [address] [place] [address] Performed By: #### 5 7021-8 ####[facility]ORATORYCLIA [id number] [address] [place] Neutrophils/100 WBC (Bld) 74.1 % Normal [facility] Comment on above: Order Comment: Speci men Type: BLOOD SPECIMENOrdering Facility: [facility] Address: [address] [address] Performed By: #### 5 7021-8 ####[facility]ORATORYCLIA [id number] [place] [address] [place] Nucleated RBC (Bld) [#/Vol] 10*3/uL Normal <0.01 [facility] Comment on above: Order Comment: Speci men Type: BLOOD SPECIMENOrdering Facility: [facility] Address: [address] [place] [address] Performed By: #### 5 7021-8 ####[facility]ORATORYCLIA [id number] [address] [place] Nucleated RBC/100 WBC (Bld) [Ratio] 0.0 /100 WBC Normal [facility] Comment on above: Order Comment: Speci men Type: BLOOD SPECIMENOrdering Facility: [facility] Address: [address] [place] [address] Performed By: #### 5 7021-8 ####[facility]ORATORYCLIA [id number] [address] [place] Platelet mean volume (Bld) [Entitic vol] 9.9 fL Normal 9.0-12.7 [facility] Comment on above: Order Comment: Speci men Type: BLOOD SPECIMENOrdering Facility: [facility] Address: [address] [place] [address] Performed By: #### 5 7021-8 ####[facility] LABORATORYCLIA [id number] [address] [place] Platelets (Bld) [#/Vol] 391 10*3/uL Normal 150-400 [facility] Comment on above: Order Comment: Speci men Type: BLOOD SPECIMENOrdering Facility: [facility] Address: [address] [place] [address] Performed By: #### 5 7021-8 ####[facility]ORATORYCLIA [id number] [address] [place] RBC (Bld) [#/Vol] 3.36 10*6/uL Low 4.20-6.00 [facility] Comment on above: Order Comment: Speci men Type: BLOOD SPECIMENOrdering Facility: [facility] Address: [address] [place] [address] Performed By: #### 5 7021-8 ####[facility]ORATORYCLIA [id number] [address] [place] WBC (Bld) [#/Vol] 9.00 10*3/uL Normal 3.70-11.00 [facility] Comment on above: Order Comment: Speci men Type: BLOOD SPECIMENOrdering Facility: [facility] Address: [address] [place] [address] Performed By: #### 5 7021-8 ####[facility]ORATORYCLIA [id number] [address] CONSULT PROGon 07-16-2021 CONSULT PROG Normal [facility] CONSULT PROG Normal [facility] Magnesium SerPl-mCncon 07-16 Magnesium [Mass/Vol] 2.3 mg/dL Normal 1.7-2.3 [facility] Comment on above: Order Comment: Speci men Type: BLOOD SPECIMENOrdering Facility: [facility] Address: [address] [place] [address] Performed By: #### 2 777-1, 73666-8, 29570-0 ####[facility]ORATORYCLIA [id number] [address] OF [facility] NURSING PROGon 07-16-2021 NURSING PROG Normal [facility] Phosphate SerPl-mCncon 07-16 Phosphate [Mass/Vol] 3.6 mg/dL Normal 2.7-4.8 [facility] Comment on above: Order Comment: Speci men Type: BLOOD SPECIMENOrdering Facility: [facility] Address: [address] [place] [address] Performed By: #### 2 777-1, 26348-2, 67250-0 ####[facility]ORATORYCLIA [id number] [address] [place] Vancomycin random [Mass/Vol] on 07-16-2021 Vancomycin [Mass/Vol] 16.9 ug/mL Normal 10.0-20.0 [facility] Comment on above: Order Comment: Speci men Type: BLOOD SPECIMENOrdering Facility: [facility] Address: [address] [place] [address] Result Comment: Refe rence ranges and high/low indicator flags are provided as general guidelines only. The treating physician must determine appropriate target levels/dosing based on the specific clinical situation. Performed By: #### 4 091-5 ####[facility]ORATORYCLIA [id number] [address] OF [facility] aPTT PPPon 07-16-2021 aPTT Coag (PPP) [Time] 57.2 s High 23.0-32.4 [facility] Comment on above: Order Comment: Speci men Type: BLOOD SPECIMENOrdering Facility: [facility] Address: [address] [place] [address] Performed By: #### 1 4979-9 ####[facility]ORATORYCLIA [id number] [address] OF [facility] ALLIED HEALTHon 07-15-2021 ALLIED HEALTH Normal [facility] Basic metabolic 2000 panelon 07-15-2021 Anion gap [Moles/Vol] 11 mmol/L Normal 9-18 [facility] Comment on above: Order Comment: Speci men Type: BLOOD SPECIMENOrdering Facility: [facility] Address: [address] [place] [address] Performed By: #### 2 4321-2, , 2776-05 ####[facility]ITALCLIA [id number] [address] STATES OF [facility] Calcium [Mass/Vol] 8.8 mg/dL Normal 8.5-10.2 [facility] Comment on above: Order Comment: Speci men Type: BLOOD SPECIMENOrdering Facility: [facility] Address: [address] [place] [address] Performed By: #### 2 4321-2, , 2777- ####[facility]ORATORYCLIA [id number] [address] [place] Chloride [Moles/Vol] 101 mmol/L Normal 97-105 [facility] Comment on above: Order Comment: Speci men Type: BLOOD SPECIMENOrdering Facility: [facility] Address: [address] [place] [address] Performed By: #### 2 4321-2, , 2776-05 ####[facility]ORATORYCLIA [id number] [place] [address] [place] CO2 [Moles/Vol] 31 mmol/L High 22-30 [facility] Comment on above: Order Comment: Speci men Type: BLOOD SPECIMENOrdering Facility: [facility] Address: [address] [place] [address] Performed By: #### 2 4321-2, , 2776-05 ####[facility]ORATORYCLIA [id number] [place] [address] [place] [facility] Creatinine [Mass/Vol] 0.76 mg/dL Normal 0.73-1.22 [facility] Comment on above: Order Comment: Speci men Type: BLOOD SPECIMENOrdering Facility: [facility] Address: [address] [place] [address] Performed By: #### 2 4321-2, , 2776-05 ####[facility]PITALCLIA [id number] [address] STATES OF [facility] ESTIMATED GLOMERULAR FILTRATION RATE 97 mL/min/1.73m??? Normal >=60 [facility] Comment on above: Order Comment: Speci men Type: BLOOD SPECIMENOrdering Facility: [facility] Address: [address] [place] [address] Result Comment: Luzmaria mated Glomerular Filtration Rate [...] Performed By: #### 2 4321-2, , 2776-05 ####[facility]ORATORYCLIA [id number] [place] [address] [place] Glucose [Mass/Vol] 115 mg/dL High 74-99 [facility] Comment on above: Order Comment: Shira feldman Type: BLOOD SPECIMENOrdering Facility: [facility] Address: [address] [place], [place] [address] Result Comment: The [place] Diabetes Association (ADA) provides guidance for cutoff [...] Standards of Medical Care in Diabetes 2016, [place] [employer]. Diabetes Care. 2016.39(Suppl 1). Performed By: #### 2 4321-2, , 2776-05 ####[facility] LABORATORYCLIA [id number] [place] [address] [place] Potassium [Moles/Vol] 4.0 mmol/L Normal 3.7-5.1 [facility] Comment on above: Order Comment: Shira feldman Type: BLOOD SPECIMENOrdering Facility: [facility] Address: [address] [place], [place] [address] Performed By: #### 2 4321-2, , 2776-05 ####[facility] LABORATORYCLIA [id number] [place] [address] [place] Sodium [Moles/Vol] 143 mmol/L Normal 136-144 [facility] Comment on above: Order Comment: Shira feldman Type: BLOOD SPECIMENOrdering Facility: [facility] Address: [address] [place], [place] [address] Performed By: #### 2 4321-2, , 2776-05 ####[facility] LABORATORYCLIA [id number] [place] [address] [place] Urea nitrogen [Mass/Vol] 17 mg/dL Normal 9-24 [facility] Comment on above: Order Comment: Speci men Type: BLOOD SPECIMENOrdering Facility: [facility] Address: [address] [place] [address] Performed By: #### 2 4321-2, 19321-8, 2777-1 ####[facility]ORATORYCLIA [id number] [address] [place] CASE MANAGEMon 07-15-2021 CASE MANAGEM Normal [facility] CBC panel Auto (Bld)on 07-15 Erythrocyte distribution width (RBC) [Ratio] 16.4 % High 11.5-15.0 [facility] Comment on above: Order Comment: Speci men Type: BLOOD SPECIMENOrdering Facility: [facility] Address: [address] [place] [address] Performed By: #### 5 8410-2 ####[facility]ORATORYCLIA [id number] [address] [place] Hematocrit (Bld) [Volume fraction] 30.3 % Low 39.0-51.0 [facility] Comment on above: Order Comment: Speci men Type: BLOOD SPECIMENOrdering Facility: [facility] Address: [address] [place] [address] Performed By: #### 5 8410-2 ####[facility]ORATORYCLIA [id number] [address] [place] Hemoglobin (Bld) [Mass/Vol] 9.2 g/dL Low 13.0-17.0 [facility] Comment on above: Order Comment: Speci men Type: BLOOD SPECIMENOrdering Facility: [facility] Address: [address] [place] [address] Performed By: #### 5 8410-2 ####[facility]ORATORYCLIA [id number] [address] [place] MCH (RBC) [Entitic mass] 28.3 pg Normal 26.0-34.0 [facility] Comment on above: Order Comment: Speci men Type: BLOOD SPECIMENOrdering Facility: [facility] Address: [address] [address] Performed By: #### 5 8410-2 ####[facility]ORATORYCLIA [id number] [address] MCHC (RBC) [Mass/Vol] 30.4 g/dL Low 30.5-36.0 [facility] Comment on above: Order Comment: Speci men Type: BLOOD SPECIMENOrdering Facility: [facility] Address: [address] [place] [address] Performed By: #### 5 8410-2 ####[facility]ORATORYCLIA [id number] [address] MCV (RBC) [Entitic vol] 93.2 fL Normal 80.0-100.0 [facility] Comment on above: Order Comment: Speci men Type: BLOOD SPECIMENOrdering Facility: [facility] Address: [address] [place] [address] Performed By: #### 5 8410-2 ####[facility]ORATORYCLIA [id number] [address] Nucleated RBC (Bld) [#/Vol] 10*3/uL Normal <0.01 [facility] Comment on above: Order Comment: Speci men Type: BLOOD SPECIMENOrdering Facility: [facility] Address: [address] [place] [address] Performed By: #### 5 8410-2 ####[facility]ORATORYCLIA [id number] [address] Platelet mean volume (Bld) [Entitic vol] 9.9 fL Normal 9.0-12.7 [facility] Comment on above: Order Comment: Speci men Type: BLOOD SPECIMENOrdering Facility: [facility] Address: [address] [place] [address] Performed By: #### 5 8410-2 ####[facility]ORATORYCLIA [id number] [address] [place] Platelets (Bld) [#/Vol] 381 10*3/uL Normal 150-400 [facility] Comment on above: Order Comment: Speci men Type: BLOOD SPECIMENOrdering Facility: [facility] Address: [address] [place] [address] Performed By: #### 5 8410-2 ####[facility]ORATORYCLIA [id number] [place] [address] [place] [facility] RBC (Bld) [#/Vol] 3.25 10*6/uL Low 4.20-6.00 [facility] Comment on above: Order Comment: Speci men Type: BLOOD SPECIMENOrdering Facility: [facility] Address: [address] [place] [address] Performed By: #### 5 8410-2 ####[facility]ORATORYCLIA [id number] [address] STATES OF [facility] WBC (Bld) [#/Vol] 8.80 10*3/uL Normal 3.70-11.00 [facility] Comment on above: Order Comment: Speci men Type: BLOOD SPECIMENOrdering Facility: [facility] Address: [address] [place] [address] Performed By: #### 5 8410-2 ####[facility]ORATORYCLIA [id number] [address] [place] Magnesium SerPl-mCncon 07-15 Magnesium [Mass/Vol] 2.2 mg/dL Normal 1.7-2.3 [facility] Comment on above: Order Comment: Speci men Type: BLOOD SPECIMENOrdering Facility: [facility] Address: [address] [place] [address] Performed By: #### 2 4321-2, 83676-4, 2777-1 ####[facility]ORATORYCLIA [id number] [address] [place] NURSING PROGon 07-15-2021 NURSING PROG Normal [facility] NURSING PROG Normal [facility] NURSING PROG Normal [facility] NUTRITIONon 07-15-2021 NUTRITION Normal [facility] Phosphate SerPl-mCncon 07-15 Phosphate [Mass/Vol] 3.4 mg/dL Normal 2.7-4.8 [facility] Comment on above: Order Comment: Speci men Type: BLOOD SPECIMENOrdering Facility: [facility] Address: [address] [place] [address] Performed By: #### 2 4321-2, 74022-1, 2777-1 ####[facility] LABORATORYCLIA [id number] [place] [address] [place] THERAPY NTon 07-15-2021 THERAPY NT Normal [facility] US DVT UPPER LTon 07-15-2021 US DVT UPPER LT Normal [facility] XR CHEST 1V FRONTALon 2021 XR CHEST 1V FRONTAL Normal [facility] aPTT PPPon 07-15-2021 aPTT Coag (PPP) [Time] 59.9 s High 23.0-32.4 [facility] Comment on above: Order Comment: Speci men Type: BLOOD SPECIMENOrdering Facility: [facility] Address: [address] [place] [address] Performed By: #### 1 4979-9 ####[facility] LABORATORYCLIA [id number] [place] [address] [place] Basic metabolic 2000 panelon 07-14-2021 Anion gap [Moles/Vol] 9 mmol/L Normal 9-18 [facility] Comment on above: Order Comment: Speci men Type: BLOOD SPECIMENOrdering Facility: [facility] Address: [address] [place] [address] Performed By: #### 1 9123-9, 2777-1, 48921-0 ####[facility] LABORATORYCLIA [id number] [place] [address] [place] Calcium [Mass/Vol] 8.5 mg/dL Normal 8.5-10.2 [facility] Comment on above: Order Comment: Speci men Type: BLOOD SPECIMENOrdering Facility: [facility] Address: [address] Performed By: #### 1 9123-9, 2777-1, 33792-4 ####[facility] LABORATORYCLIA [id number] [place] [address] [place] Chloride [Moles/Vol] 99 mmol/L Normal 97-105 [facility] Comment on above: Order Comment: Speci men Type: BLOOD SPECIMENOrdering Facility: [facility] Address: [address] [place] [address] Performed By: #### 1 9123-9, 2777-1, 38853-3 ####[facility] LABORATORYCLIA [id number] [address] [place] CO2 [Moles/Vol] 31 mmol/L High 22-30 [facility] Comment on above: Order Comment: Speci men Type: BLOOD SPECIMENOrdering Facility: [facility] Address: [address] [place] [address] Performed By: #### 1 9123-9, 2777-, 79826-6 ####[facility] LABORATORYCLIA [id number] [address] [place] Creatinine [Mass/Vol] 0.74 mg/dL Normal 0.73-1.22 [facility] Comment on above: Order Comment: Speci men Type: BLOOD SPECIMENOrdering Facility: [facility] Address: [address] [place] [address] Performed By: #### 1 9123-9, 2777-, 49525-8 ####[facility] LABORATORYCLIA [id number] [address] [place] ESTIMATED GLOMERULAR FILTRATION RATE 98 mL/min/1.73m??? Normal >=60 [facility] Comment on above: Order Comment: Speci men Type: BLOOD SPECIMENOrdering Facility: [facility] Address: [address] [place] [address] Result Comment: Luzmaria mated Glomerular Filtration Rate [...] GFR. Performed By: #### 1 9123-9, 2777-, 97161-6 ####[facility] LABORATORYCLIA [id number] [place] [address] [place] Glucose [Mass/Vol] 117 mg/dL High 74-99 [facility] Comment on above: Order Comment: Shira feldman Type: BLOOD SPECIMENOrdering Facility: [facility] Address: [address] [id number] Result Comment: The [place] Diabetes Association (ADA) provides guidance for cutoff [...] Standards of Medical Care in Diabetes 2016, [employer] Diabetes [employer]. Diabetes Care. 2016.39(Suppl 1). Performed By: #### 1 9123-9, 2776-05, 87136-3 ####[facility] LABORATORYCLIA [id number] [place] [id number] [place] Potassium [Moles/Vol] 3.7 mmol/L Normal 3.7-5.1 [facility] Comment on above: Order Comment: Shira feldman Type: BLOOD SPECIMENOrdering Facility: [facility] Address: [address] [place] [address] Performed By: #### 1 9123-9, 2777-, 13858-8 ####[facility] LABORATORYCLIA [id number] [place] [address] [place] Sodium [Moles/Vol] 139 mmol/L Normal 136-144 [facility] Comment on above: Order Comment: Speci men Type: BLOOD SPECIMENOrdering Facility: [facility] Address: [address] [place] [address] Performed By: #### 1 9123-9, 2777-1, 47849-5 ####[facility] LABORATORYCLIA [id number] [address] STATES OF [facility] Urea nitrogen [Mass/Vol] 16 mg/dL Normal 9-24 [facility] Comment on above: Order Comment: Speci men Type: BLOOD SPECIMENOrdering Facility: [facility] Address: [address] [place] [address] Performed By: #### 1 9123-9, 2777-, 90906-2 ####[facility] LABORATORYCLIA [id number] [address] STATES OF [facility] CBC panel Auto (Bld)on 07-14 Erythrocyte distribution width (RBC) [Ratio] 16.2 % High 11.5-15.0 [facility] Comment on above: Order Comment: Speci men Type: BLOOD SPECIMENOrdering Facility: [facility] Address: [address] [place] [address] Performed By: #### 5 8410-2 ####[facility] LABORATORYCLIA [id number] [address] [place] Hematocrit (Bld) [Volume fraction] 29.7 % Low 39.0-51.0 [facility] Comment on above: Order Comment: Speci men Type: BLOOD SPECIMENOrdering Facility: [facility] Address: [address] [place] [address] Performed By: #### 5 8410-2 ####[facility] LABORATORYCLIA [id number] [address] STATES OF [facility] Hemoglobin (Bld) [Mass/Vol] 8.8 g/dL Low 13.0-17.0 [facility] Comment on above: Order Comment: Speci men Type: BLOOD SPECIMENOrdering Facility: [facility] Address: [address] [place] [address] Performed By: #### 5 8410-2 ####[facility] LABORATORYCLIA [id number] [address] MCH (RBC) [Entitic mass] 27.5 pg Normal 26.0-34.0 [facility] Comment on above: Order Comment: Speci men Type: BLOOD SPECIMENOrdering Facility: [facility] Address: [address] [place] [address] Performed By: #### 5 8410-2 ####[facility] LABORATORYCLIA [id number] [address] MCHC (RBC) [Mass/Vol] 29.6 g/dL Low 30.5-36.0 [facility] Comment on above: Order Comment: Speci men Type: BLOOD SPECIMENOrdering Facility: [facility] Address: [address] [place] [address] Performed By: #### 5 8410-2 ####[facility] LABORATORYCLIA [id number] [address] STATES OF [facility] MCV (RBC) [Entitic vol] 92.8 fL Normal 80.0-100.0 [facility] Comment on above: Order Comment: Speci men Type: BLOOD SPECIMENOrdering Facility: [facility] Address: [address] [place] [address] Performed By: #### 5 8410-2 ####[facility] LABORATORYCLIA [id number] [address] Nucleated RBC (Bld) [#/Vol] 10*3/uL Normal <0.01 [facility] Comment on above: Order Comment: Speci men Type: BLOOD SPECIMENOrdering Facility: [facility] Address: [address] [place] [address] Performed By: #### 5 8410-2 ####[facility] LABORATORYCLIA [id number] [address] Platelet mean volume (Bld) [Entitic vol] 9.6 fL Normal 9.0-12.7 [facility] Comment on above: Order Comment: Speci men Type: BLOOD SPECIMENOrdering Facility: [facility] Address: [address] [place] [address] Performed By: #### 5 8410-2 ####[facility] LABORATORYCLIA [id number] [address] STATES OF [facility] Platelets (Bld) [#/Vol] 354 10*3/uL Normal 150-400 [facility] Comment on above: Order Comment: Speci men Type: BLOOD SPECIMENOrdering Facility: [facility] Address: [address] [place] [address] Performed By: #### 5 8410-2 ####[facility] LABORATORYCLIA [id number] [address] STATES OF [facility] RBC (Bld) [#/Vol] 3.20 10*6/uL Low 4.20-6.00 [facility] Comment on above: Order Comment: Speci men Type: BLOOD SPECIMENOrdering Facility: [facility] Address: [address] [place] [address] Performed By: #### 5 8410-2 ####[facility] LABORATORYCLIA [id number] [address] OF [facility] WBC (Bld) [#/Vol] 9.41 10*3/uL Normal 3.70-11.00 [facility] Comment on above: Order Comment: Speci men Type: BLOOD SPECIMENOrdering Facility: [facility] Address: [address] [place] [address] Performed By: #### 5 8410-2 ####[facility] LABORATORYCLIA [id number] [address] OF [facility] CONSULT PROGon 07-14-2021 CONSULT PROG Normal [facility] Magnesium SerPl-mCncon 07-14 Magnesium [Mass/Vol] 2.2 mg/dL Normal 1.7-2.3 [facility] Comment on above: Order Comment: Speci men Type: BLOOD SPECIMENOrdering Facility: [facility] Address: [address] [place] [address] Performed By: #### 1 9123-9, 2777-1, 58210-5 ####[facility] LABORATORYCLIA [id number] [address] OF [facility] NURSING PROGon 07-14-2021 NURSING PROG Normal [facility] Phosphate SerPl-mCncon 07-14 Phosphate [Mass/Vol] 3.6 mg/dL Normal 2.7-4.8 [facility] Comment on above: Order Comment: Speci men Type: BLOOD SPECIMENOrdering Facility: [facility] Address: [address] [place] [address] Performed By: #### 1 9123-9, 2777-1, 85912-6 ####[facility] LABORATORYCLIA [id number] [address] aPTT PPPon 07-14-2021 aPTT Coag (PPP) [Time] 62.9 s High 23.0-32.4 [facility] Comment on above: Order Comment: Speci men Type: BLOOD SPECIMENOrdering Facility: [facility] Address: [address] [place] [address] Performed By: #### 1 4979-9 ####[facility] LABORATORYCLIA [id number] [address] aPTT Coag (PPP) [Time] 55.2 s High 23.0-32.4 [facility] Comment on above: Order Comment: Speci men Type: BLOOD SPECIMENOrdering Facility: [facility] Address: [address] [place] [address] Performed By: #### 1 4979-9 ####[facility] LABORATORYCLIA [id number] [place] [address] [place] Basic metabolic 2000 panelon 07-13-2021 Anion gap [Moles/Vol] 10 mmol/L Normal 9-18 [facility] Comment on above: Order Comment: Speci men Type: BLOOD SPECIMENOrdering Facility: [facility] Address: [address] [place] [address] Performed By: #### 1 9123-9, 27711-04, 74031-3 ####[facility] LABORATORYCLIA [id number] [place] [address] [place] Calcium [Mass/Vol] 8.5 mg/dL Normal 8.5-10.2 [facility] Comment on above: Order Comment: Speci men Type: BLOOD SPECIMENOrdering Facility: [facility] Address: [address] [place] [address] Performed By: #### 1 9123-9, 27711-04, ####[facility] LABORATORYCLIA [id number] [place] [address] [place] Chloride [Moles/Vol] 98 mmol/L Normal 97-105 [facility] Comment on above: Order Comment: Speci men Type: BLOOD SPECIMENOrdering Facility: [facility] Address: [address] [place] [address] Performed By: #### 1 9123-9, 2776-05, ####[facility] LABORATORYCLIA [id number] [place] [address] [place] CO2 [Moles/Vol] 32 mmol/L High 22-30 [facility] Comment on above: Order Comment: Speci men Type: BLOOD SPECIMENOrdering Facility: [facility] Address: [address] [place] [address] Performed By: #### 1 9123-9, 2776-05, 90050-8 ####[facility] LABORATORYCLIA [id number] [place] [address] [place] Creatinine [Mass/Vol] 0.75 mg/dL Normal 0.73-1.22 [facility] Comment on above: Order Comment: Speci men Type: BLOOD SPECIMENOrdering Facility: [facility] Address: [address] [place] [address] Performed By: #### 1 9123-9, 2777-, 02339-9 ####[facility]ITALCLIA [id number] [address] [place] ESTIMATED GLOMERULAR FILTRATION RATE 98 mL/min/1.73m??? Normal >=60 [facility] Comment on above: Order Comment: Shira feldman Type: BLOOD SPECIMENOrdering Facility: [facility] Address: [address] [place] [address] Result Comment: Luzmaria mated Glomerular Filtration Rate [...] GFR. Performed By: #### 1 9123-9, 2777-, 74244-9 ####[facility]ITALIA [id number] [address] [place] Glucose [Mass/Vol] 118 mg/dL High 74-99 [facility] Comment on above: Order Comment: Shira feldman Type: BLOOD SPECIMENOrdering Facility: [facility] Address: [address] [place] [address] Result Comment: The [place] Diabetes Association (ADA) provides guidance for cutoff [...] Standards of Medical Care in Diabetes 2016, [place] Diabetes Association. Diabetes Care. 2016.39(Suppl 1). Performed By: #### 1 9123-9, 2777-, 89471-9 ####[facility] LABORATORYCLIA [id number] [place] [address] [place] Potassium [Moles/Vol] 3.6 mmol/L Low 3.7-5.1 [facility] Comment on above: Order Comment: Speci men Type: BLOOD SPECIMENOrdering Facility: [facility] Address: [address] [place] [address] Performed By: #### 1 9123-9, 2777-1, 18015-9 ####[facility] LABORATORYCLIA [id number] [address] [place] Sodium [Moles/Vol] 140 mmol/L Normal 136-144 [facility] Comment on above: Order Comment: Speci men Type: BLOOD SPECIMENOrdering Facility: [facility] Address: [address] [place] [address] Performed By: #### 1 9123-9, 2777-1, 22775-2 ####[facility] LABORATORYCLIA [id number] [address] STATES OF [facility] Urea nitrogen [Mass/Vol] 15 mg/dL Normal 9-24 [facility] Comment on above: Order Comment: Speci men Type: BLOOD SPECIMENOrdering Facility: [facility] Address: [address] [place] [address] Performed By: #### 1 9123-9, 2777-1, 63004-8 ####[facility] LABORATORYCLIA [id number] [address] [place] CASE MANAGEMon 07-13-2021 CASE MANAGEM Normal [facility] CBC panel Auto (Bld)on 07-13 Erythrocyte distribution width (RBC) [Ratio] 16.2 % High 11.5-15.0 [facility] Comment on above: Order Comment: Speci men Type: BLOOD SPECIMENOrdering Facility: [facility] Address: [address] [place] [address] Performed By: #### 5 8410-2 ####[facility] LABORATORYCLIA [id number] [place] [address] [place] Hematocrit (Bld) [Volume fraction] 29.5 % Low 39.0-51.0 [facility] Comment on above: Order Comment: Speci men Type: BLOOD SPECIMENOrdering Facility: [facility] Address: [address] [place] [address] Performed By: #### 5 8410-2 ####[facility] LABORATORYCLIA [id number] [address] STATES OF [facility] Hemoglobin (Bld) [Mass/Vol] 8.9 g/dL Low 13.0-17.0 [facility] Comment on above: Order Comment: Speci men Type: BLOOD SPECIMENOrdering Facility: [facility] Address: [address] [place] [address] Performed By: #### 5 8410-2 ####[facility] LABORATORYCLIA [id number] [address] STATES OF [facility] MCH (RBC) [Entitic mass] 27.8 pg Normal 26.0-34.0 [facility] Comment on above: Order Comment: Speci men Type: BLOOD SPECIMENOrdering Facility: [facility] Address: [address] [place] [address] Performed By: #### 5 8410-2 ####[facility] LABORATORYCLIA [id number] [address] [place] MCHC (RBC) [Mass/Vol] 30.2 g/dL Low 30.5-36.0 [facility] Comment on above: Order Comment: Speci men Type: BLOOD SPECIMENOrdering Facility: [facility] Address: [address] [place] [address] Performed By: #### 5 8410-2 ####[facility] LABORATORYCLIA [id number] [address] STATES OF [facility] MCV (RBC) [Entitic vol] 92.2 fL Normal 80.0-100.0 [facility] Comment on above: Order Comment: Speci men Type: BLOOD SPECIMENOrdering Facility: [facility] Address: [address] [place] [address] Performed By: #### 5 8410-2 ####[facility] LABORATORYCLIA [id number] [address] [place] Nucleated RBC (Bld) [#/Vol] 10*3/uL Normal <0.01 [facility] Comment on above: Order Comment: Speci men Type: BLOOD SPECIMENOrdering Facility: [facility] Address: [address] [place] [address] Performed By: #### 5 8410-2 ####[facility] LABORATORYCLIA [id number] [address] [place] Platelet mean volume (Bld) [Entitic vol] 9.8 fL Normal 9.0-12.7 [facility] Comment on above: Order Comment: Speci men Type: BLOOD SPECIMENOrdering Facility: [facility] Address: [address] [place] [address] Performed By: #### 5 8410-2 ####[facility] LABORATORYCLIA [id number] [address] [place] Platelets (Bld) [#/Vol] 356 10*3/uL Normal 150-400 [facility] Comment on above: Order Comment: Speci men Type: BLOOD SPECIMENOrdering Facility: [facility] Address: [address] [place] [address] Performed By: #### 5 8410-2 ####[facility] LABORATORYCLIA [id number] [address] [place] RBC (Bld) [#/Vol] 3.20 10*6/uL Low 4.20-6.00 [facility] Comment on above: Order Comment: Speci men Type: BLOOD SPECIMENOrdering Facility: [facility] Address: [address] [place] [address] Performed By: #### 5 8410-2 ####[facility] LABORATORYCLIA [id number] [address] [place] WBC (Bld) [#/Vol] 9.20 10*3/uL Normal 3.70-11.00 [facility] Comment on above: Order Comment: Speci men Type: BLOOD SPECIMENOrdering Facility: [facility] Address: [address] [place] [address] Performed By: #### 5 8410-2 ####[facility] LABORATORYCLIA [id number] [address] OF [facility] CONSULT PROGon 07-13-2021 CONSULT PROG Normal [facility] CONSULT PROG Normal [facility] CONSULT PROG Normal [facility] Magnesium SerPl-mCncon 07-13 Magnesium [Mass/Vol] 2.1 mg/dL Normal 1.7-2.3 [facility] Comment on above: Order Comment: Speci men Type: BLOOD SPECIMENOrdering Facility: [facility] Address: [address] [place] [address] Performed By: #### 1 9123-9, 2777-1, 13705-8 ####[facility] LABORATORYCLIA [id number] [address] OF [facility] Phosphate SerPl-mCncon 07-13 Phosphate [Mass/Vol] 3.7 mg/dL Normal 2.7-4.8 [facility] Comment on above: Order Comment: Speci men Type: BLOOD SPECIMENOrdering Facility: [facility] Address: [address] [place] [address] Performed By: #### 1 9123-9, 2777-1, 61027-7 ####[facility] LABORATORYCLIA [id number] [address] [place] THERAPY NTon 07-13-2021 THERAPY NT Normal [facility] THERAPY NT Normal [facility] Vancomycin random [Mass/Vol] on 07-13-2021 Vancomycin [Mass/Vol] 31.7 ug/mL High 10.0-20.0 [facility] Comment on above: Order Comment: Speci men Type: BLOOD SPECIMENOrdering Facility: [facility] Address: [address] [place] [address] Result Comment: Refe rence ranges and high/low indicator flags are provided as general guidelines only. The treating physician must determine appropriate target levels/dosing based on the specific clinical situation. Performed By: #### 4 091-5 ####[facility] LABORATORYCLIA [id number] [address] aPTT PPPon 07-13-2021 aPTT Coag (PPP) [Time] 47.3 s High 23.0-32.4 [facility] Comment on above: Order Comment: Speci men Type: BLOOD SPECIMENOrdering Facility: [facility] Address: [address] [address] Performed By: #### 1 4979-9 ####[facility] LABORATORYCLIA [id number] [address] aPTT Coag (PPP) [Time] 51.2 s High 23.0-32.4 [facility] Comment on above: Order Comment: Speci men Type: BLOOD SPECIMENOrdering Facility: [facility] Address: [address] [address] Performed By: #### 1 4979-9 ####[facility] LABORATORYCLIA [id number] [address] aPTT Coag (PPP) [Time] 47.5 s High 23.0-32.4 [facility] Comment on above: Order Comment: Speci men Type: BLOOD SPECIMENOrdering Facility: [facility] Address: [address] [address] Performed By: #### 1 4979-9 ####[facility] LABORATORYCLIA [id number] [address] Basic metabolic 2000 panelon 07-12-2021 Anion gap [Moles/Vol] 7 mmol/L Low 9-18 [facility] Comment on above: Order Comment: Speci men Type: BLOOD SPECIMENOrdering Facility: [facility] Address: [address] [address] Performed By: #### 1 9123-9, 27711-04, 36740-6 ####[facility] LABORATORYCLIA [id number] [place] [address] [place] Calcium [Mass/Vol] 8.3 mg/dL Low 8.5-10.2 [facility] Comment on above: Order Comment: Speci men Type: BLOOD SPECIMENOrdering Facility: [facility] Address: [address] [place] [address] Performed By: #### 1 9123-9, 27711-04, 18683-9 ####[facility] LABORATORYCLIA [id number] [place] [address] [place] Chloride [Moles/Vol] 101 mmol/L Normal 97-105 [facility] Comment on above: Order Comment: Speci men Type: BLOOD SPECIMENOrdering Facility: [facility] Address: [address] [place] [address] Performed By: #### 1 9123-9, 27711-04, 10310-0 ####[facility] LABORATORYCLIA [id number] [address] [place] CO2 [Moles/Vol] 32 mmol/L High 22-30 [facility] Comment on above: Order Comment: Speci men Type: BLOOD SPECIMENOrdering Facility: [facility] Address: [address] [place] [address] Performed By: #### 1 9123-9, 2776-05, 00501-2 ####[facility] LABORATORYCLIA [id number] [address] [place] Creatinine [Mass/Vol] 0.70 mg/dL Low 0.73-1.22 [facility] Comment on above: Order Comment: Speci men Type: BLOOD SPECIMENOrdering Facility: [facility] Address: [address] [place] [address] Performed By: #### 1 9123-9, 27711-04, 02257-6 ####[facility] LABORATORYCLIA [id number] [place] [address] [place] ESTIMATED GLOMERULAR FILTRATION RATE 100 mL/min/1.73m??? Normal >=60 [facility] Comment on above: Order Comment: Shira feldman Type: BLOOD SPECIMENOrdering Facility: [facility] Address: [address] [place], [place] [address] Result Comment: Luzmaria mated Glomerular Filtration Rate [...] GFR. Performed By: #### 1 9123-9, 2777-1, 11198-3 ####[facility]ITALCLIA [id number] [place] [address] [place] Glucose [Mass/Vol] 104 mg/dL High 74-99 [facility] Comment on above: Order Comment: Shira feldman Type: BLOOD SPECIMENOrdering Facility: [facility] Address: [address] [place] [address] Result Comment: The [place] Diabetes Association (ADA) provides guidance for cutoff [...] Standards of Medical Care in Diabetes 2016, [employer] Diabetes [employer]. Diabetes Care. 2016.39(Suppl 1). Performed By: #### 1 9123-9, 2777-1, 92264-5 ####[facility] LABORATORYCLIA [id number] [place] [address] [place] Potassium [Moles/Vol] 3.7 mmol/L Normal 3.7-5.1 [facility] Comment on above: Order Comment: Speci men Type: BLOOD SPECIMENOrdering Facility: [facility] Address: [address] [place] [address] Performed By: #### 1 9123-9, 2777-, 56785-4 ####[facility] LABORATORYCLIA [id number] [address] STATES OF [facility] Sodium [Moles/Vol] 140 mmol/L Normal 136-144 [facility] Comment on above: Order Comment: Speci men Type: BLOOD SPECIMENOrdering Facility: [facility] Address: [address] [place] [address] Performed By: #### 1 9123-9, 27711-04, 00586-6 ####[facility] LABORATORYCLIA [id number] [address] STATES OF [facility] Urea nitrogen [Mass/Vol] 12 mg/dL Normal 9-24 [facility] Comment on above: Order Comment: Speci men Type: BLOOD SPECIMENOrdering Facility: [facility] Address: [address] [place] [address] Performed By: #### 1 9123-9, 2777, 37010-1 ####[facility]ORATORYCLIA [id number] [address] [place] [facility] CBC panel Auto (Bld)on 07-12 Erythrocyte distribution width (RBC) [Ratio] 16.1 % High 11.5-15.0 [facility] Comment on above: Order Comment: Speci men Type: BLOOD SPECIMENOrdering Facility: [facility] Address: [address] [place] [address] Performed By: #### 5 8410-2 ####[facility]ORATORYCLIA [id number] [address] Hematocrit (Bld) [Volume fraction] 28.2 % Low 39.0-51.0 [facility] Comment on above: Order Comment: Speci men Type: BLOOD SPECIMENOrdering Facility: [facility] Address: [address] [place] [address] Performed By: #### 5 8410-2 ####[facility]ATORYCLIA [id number] [address] Hemoglobin (Bld) [Mass/Vol] 8.5 g/dL Low 13.0-17.0 [facility] Comment on above: Order Comment: Speci men Type: BLOOD SPECIMENOrdering Facility: [facility] Address: [address] [place] [address] Performed By: #### 5 8410-2 ####[facility]ORATORYCLIA [id number] [address] MCH (RBC) [Entitic mass] 26.8 pg Normal 26.0-34.0 [facility] Comment on above: Order Comment: Speci men Type: BLOOD SPECIMENOrdering Facility: [facility] Address: [address] [place] [address] Performed By: #### 5 8410-2 ####[facility] LABORATORYCLIA [id number] [address] MCHC (RBC) [Mass/Vol] 30.1 g/dL Low 30.5-36.0 [facility] Comment on above: Order Comment: Speci men Type: BLOOD SPECIMENOrdering Facility: [facility] Address: [address] [place] [address] Performed By: #### 5 8410-2 ####[facility] LABORATORYCLIA [id number] [address] MCV (RBC) [Entitic vol] 89.0 fL Normal 80.0-100.0 [facility] Comment on above: Order Comment: Speci men Type: BLOOD SPECIMENOrdering Facility: [facility] Address: [address] [place] [address] Performed By: #### 5 8410-2 ####[facility] LABORATORYCLIA [id number] [address] Nucleated RBC (Bld) [#/Vol] 10*3/uL Normal <0.01 [facility] Comment on above: Order Comment: Speci men Type: BLOOD SPECIMENOrdering Facility: [facility] Address: [address] [place] [address] Performed By: #### 5 8410-2 ####[facility] LABORATORYCLIA [id number] [address] [place] Platelet mean volume (Bld) [Entitic vol] 9.6 fL Normal 9.0-12.7 [facility] Comment on above: Order Comment: Speci men Type: BLOOD SPECIMENOrdering Facility: [facility] Address: [address] [place] [address] Performed By: #### 5 8410-2 ####[facility] LABORATORYCLIA [id number] [address] [place] Platelets (Bld) [#/Vol] 340 10*3/uL Normal 150-400 [facility] Comment on above: Order Comment: Speci men Type: BLOOD SPECIMENOrdering Facility: [facility] Address: [address] [place] [address] Performed By: #### 5 8410-2 ####[facility] LABORATORYCLIA [id number] [address] [place] RBC (Bld) [#/Vol] 3.17 10*6/uL Low 4.20-6.00 [facility] Comment on above: Order Comment: Speci men Type: BLOOD SPECIMENOrdering Facility: [facility] Address: [address] [place], [place] [address] Performed By: #### 5 8410-2 ####[facility] LABORATORYCLIA [id number] [address] [place] WBC (Bld) [#/Vol] 8.66 10*3/uL Normal 3.70-11.00 [facility] Comment on above: Order Comment: Speci men Type: BLOOD SPECIMENOrdering Facility: [facility] Address: [address] [place] [address] Performed By: #### 5 8410-2 ####[facility] LABORATORYCLIA [id number] [address] [place] CONSULTon 07-12-2021 CONSULT Normal [facility] CONSULT PROGon 07-12-2021 CONSULT PROG Normal [facility] Magnesium SerPl-mCncon 07-12 Magnesium [Mass/Vol] 2.1 mg/dL Normal 1.7-2.3 [facility] Comment on above: Order Comment: Speci men Type: BLOOD SPECIMENOrdering Facility: [facility] Address: [address] [place] [address] Performed By: #### 1 9123-9, 2777-1, 98774-1 ####[facility]ORATORYCLIA [id number] [address] NURSING PROGon 07-12-2021 NURSING PROG Normal [facility] Phosphate SerPl-mCncon 07-12 Phosphate [Mass/Vol] 3.1 mg/dL Normal 2.7-4.8 [facility] Comment on above: Order Comment: Speci men Type: BLOOD SPECIMENOrdering Facility: [facility] Address: [address] [place] [address] Performed By: #### 1 9123-9, 2777-1, 50646-0 ####[facility] LABORATORYCLIA [id number] [address] [place] THERAPY NTon 07-12-2021 THERAPY NT Normal [facility] aPTT PPPon 07-12-2021 aPTT Coag (PPP) [Time] 49.5 s High 23.0-32.4 [facility] Comment on above: Order Comment: Speci men Type: BLOOD SPECIMENOrdering Facility: [facility] Address: [address] [place] [address] Performed By: #### 1 4979-9 ####[facility] LABORATORYCLIA [id number] [address] [place] aPTT Coag (PPP) [Time] 68.0 s High 23.0-32.4 [facility] Comment on above: Order Comment: Speci men Type: BLOOD SPECIMENOrdering Facility: [facility] Address: [address] [place] [address] Performed By: #### 1 4979-9 ####[facility] LABORATORYCLIA [id number] [address] [place] aPTT Coag (PPP) [Time] 80.0 s High 23.0-32.4 [facility] Comment on above: Order Comment: Speci men Type: BLOOD SPECIMENOrdering Facility: [facility] Address: [address] [place] [address] Performed By: #### 1 4979-9 ####[facility] LABORATORYCLIA [id number] [address] OF [facility] CASE MGT INIT ASSESon 2021 CASE MGT INIT ASSES Normal [facility] CBC panel Auto (Bld)on 07-11 Erythrocyte distribution width (RBC) [Ratio] 16.3 % High 11.5-15.0 [facility] Comment on above: Order Comment: Speci men Type: BLOOD SPECIMENOrdering Facility: [facility] Address: [address] [place] [address] Performed By: #### 5 8410-2 ####[facility] LABORATORYCLIA [id number] [address] STATES OF [facility] Hematocrit (Bld) [Volume fraction] 28.3 % Low 39.0-51.0 [facility] Comment on above: Order Comment: Speci men Type: BLOOD SPECIMENOrdering Facility: [facility] Address: [address] [place] [address] Performed By: #### 5 8410-2 ####[facility]ORATORYCLIA [id number] [address] [place] Hemoglobin (Bld) [Mass/Vol] 8.8 g/dL Low 13.0-17.0 [facility] Comment on above: Order Comment: Speci men Type: BLOOD SPECIMENOrdering Facility: [facility] Address: [address] [place] [address] Performed By: #### 5 8410-2 ####[facility]ORATORYCLIA [id number] [address] MCH (RBC) [Entitic mass] 27.4 pg Normal 26.0-34.0 [facility] Comment on above: Order Comment: Speci men Type: BLOOD SPECIMENOrdering Facility: [facility] Address: [address] [place] [address] Performed By: #### 5 8410-2 ####[facility]ORATORYCLIA [id number] [address] MCHC (RBC) [Mass/Vol] 31.1 g/dL Normal 30.5-36.0 [facility] Comment on above: Order Comment: Speci men Type: BLOOD SPECIMENOrdering Facility: [facility] Address: [address] [place] [address] Performed By: #### 5 8410-2 ####[facility] LABORATORYCLIA [id number] [address] MCV (RBC) [Entitic vol] 88.2 fL Normal 80.0-100.0 [facility] Comment on above: Order Comment: Speci men Type: BLOOD SPECIMENOrdering Facility: [facility] Address: [address] [place] [address] Performed By: #### 5 8410-2 ####[facility]ORATORYCLIA [id number] [address] Nucleated RBC (Bld) [#/Vol] 10*3/uL Normal <0.01 [facility] Comment on above: Order Comment: Speci men Type: BLOOD SPECIMENOrdering Facility: [facility] Address: [address] [place] [address] Performed By: #### 5 8410-2 ####[facility]ORATORYCLIA [id number] [address] OF [facility] Platelet mean volume (Bld) [Entitic vol] 9.7 fL Normal 9.0-12.7 [facility] Comment on above: Order Comment: Speci men Type: BLOOD SPECIMENOrdering Facility: [facility] Address: [address] [place] [address] Performed By: #### 5 8410-2 ####[facility] LABORATORYCLIA [id number] [place] [address] [place] Platelets (Bld) [#/Vol] 315 10*3/uL Normal 150-400 [facility] Comment on above: Order Comment: Speci men Type: BLOOD SPECIMENOrdering Facility: [facility] Address: [address] [place] [address] Performed By: #### 5 8410-2 ####[facility] LABORATORYCLIA [id number] [place] [address] [place] RBC (Bld) [#/Vol] 3.21 10*6/uL Low 4.20-6.00 [facility] Comment on above: Order Comment: Speci men Type: BLOOD SPECIMENOrdering Facility: [facility] Address: [address] [place] [address] Performed By: #### 5 8410-2 ####[facility]ORATORYCLIA [id number] [address] [place] WBC (Bld) [#/Vol] 9.18 10*3/uL Normal 3.70-11.00 [facility] Comment on above: Order Comment: Speci men Type: BLOOD SPECIMENOrdering Facility: [facility] Address: [address] [place] [address] Performed By: #### 5 8410-2 ####[facility] LABORATORYCLIA [id number] [address] [place] CONSULT PROGon 07-11-2021 CONSULT PROG Normal [facility] CT BRAIN WO IVCONon 07-12-[address] BRAIN WO IVCON Normal [facility] Magnesium SerPl-mCncon 07-11 Magnesium [Mass/Vol] 2.1 mg/dL Normal 1.7-2.3 [facility] Comment on above: Order Comment: Speci men Type: BLOOD SPECIMENOrdering Facility: [facility] Address: [address] [place] [address] Performed By: #### 1 9123-9, 2777-1 ####[facility]ORATORYCLIA [id number] [address] NURSING PROGon 07-11-2021 NURSING PROG Normal [facility] NURSING PROG Normal [facility] Phosphate [Mass/Vol] 3.4 mg/dL Normal 2.7-4.8 [facility] Comment on above: Order Comment: Speci men Type: BLOOD SPECIMENOrdering Facility: [facility] Address: [address] [place] [address] Performed By: #### 1 9123-9, 2777-1 ####[facility]ORATORYCLIA [id number] [address] THERAPY NTon 07-11-2021 THERAPY NT Normal [facility] Vancomycin random [Mass/Vol] on 07-11-2021 Vancomycin [Mass/Vol] 28.6 ug/mL High 10.0-20.0 [facility] Comment on above: Order Comment: Speci men Type: BLOOD SPECIMENOrdering Facility: [facility] Address: [address] [place] [address] Result Comment: Refe rence ranges and high/low indicator flags are provided as general guidelines only. The treating physician must determine appropriate target levels/dosing based on the specific clinical situation. Performed By: #### 4 091-5 ####[facility]ORATORYCLIA [id number] [address] aPTT PPPon 07-11-2021 aPTT Coag (PPP) [Time] 62.0 s High 23.0-32.4 [facility] Comment on above: Order Comment: Speci men Type: BLOOD SPECIMENOrdering Facility: [facility] Address: [address] [place] [address] Performed By: #### 1 4979-9 ####[facility]ORATORYCLIA [id number] [address] aPTT Coag (PPP) [Time] 52.7 s High 23.0-32.4 [facility] Comment on above: Order Comment: Speci men Type: BLOOD SPECIMENOrdering Facility: [facility] Address: [address] [place] [address] Performed By: #### 1 4979-9 ####[facility]ORATORYCLIA [id number] [address] aPTT Coag (PPP) [Time] 29.9 s Normal 23.0-32.4 [facility] Comment on above: Order Comment: Speci men Type: BLOOD SPECIMENOrdering Facility: [facility] Address: [address] [place] [address] Performed By: #### 1 4979-9 ####[facility]ORATORYCLIA [id number] [address] [place] Basic metabolic 2000 panelon 07-10-2021 Anion gap [Moles/Vol] 14 mmol/L Normal 9-18 [facility] Comment on above: Order Comment: Speci men Type: BLOOD SPECIMENOrdering Facility: [facility] Address: [address] [place] [address] Performed By: #### 1 9123-9, 2777-, 55673-5 ####[facility]ORATORYCLIA [id number] [address] OF [facility] Calcium [Mass/Vol] 8.5 mg/dL Normal 8.5-10.2 [facility] Comment on above: Order Comment: Speci men Type: BLOOD SPECIMENOrdering Facility: [facility] Address: [address] [place] [address] Performed By: #### 1 9123-9, 2777-1, 96811-2 ####[facility] LABORATORYCLIA [id number] [place] [address] [place] Chloride [Moles/Vol] 100 mmol/L Normal 97-105 [facility] Comment on above: Order Comment: Speci men Type: BLOOD SPECIMENOrdering Facility: [facility] Address: [address] [place] [address] Performed By: #### 1 9123-9, 2777-, 02730-1 ####[facility]ITALCL[facility] [id number] [address] OF [facility] CO2 [Moles/Vol] 27 mmol/L Normal 22-30 [facility] Comment on above: Order Comment: Speci men Type: BLOOD SPECIMENOrdering Facility: [facility] Address: [address] [place] [address] Performed By: #### 1 9123-9, 2777, 13264-9 ####[facility]ITALCLIA [id number] [address] Creatinine [Mass/Vol] 0.66 mg/dL Low 0.73-1.22 [facility] Comment on above: Order Comment: Speci men Type: BLOOD SPECIMENOrdering Facility: [facility] Address: [address] [place] [address] Performed By: #### 1 9123-9, 2777-, 18580-1 ####[facility]ITALIA [id number] [address] ESTIMATED GLOMERULAR FILTRATION RATE 102 mL/min/1.73m??? Normal >=60 [facility] Comment on above: Order Comment: Speci men Type: BLOOD SPECIMENOrdering Facility: [facility] Address: [address] [place] [address] Result Comment: Luzmaria mated Glomerular Filtration Rate [...] GFR. Performed By: #### 1 9123-9, 2777-, 00260-5 ####[facility] LABORATORYCLIA [id number] [place] [address] [place] Glucose [Mass/Vol] 93 mg/dL Normal 74-99 [facility] Comment on above: Order Comment: Shira feldman Type: BLOOD SPECIMENOrdering Facility: [facility] Address: [address] [place], [place] [address] Result Comment: The [place] Diabetes Association (ADA) provides guidance for cutoff [...] Standards of Medical Care in Diabetes 2016, [employer] Association. Diabetes Care. 2016.39(Suppl 1). Performed By: #### 1 9123-9, 2777-, 26020-4 ####[facility] LABORATORYCLIA [id number] [place] [address] [place] Potassium [Moles/Vol] 3.5 mmol/L Low 3.7-5.1 [facility] Comment on above: Order Comment: Shira feldman Type: BLOOD SPECIMENOrdering Facility: [facility] Address: [address] [id number] Performed By: #### 1 9123-9, 2777-, 30105-6 ####[facility] LABORATORYCLIA [id number] [place] [address] [place] Sodium [Moles/Vol] 141 mmol/L Normal 136-144 [facility] Comment on above: Order Comment: Shira feldman Type: BLOOD SPECIMENOrdering Facility: [facility] Address: [address] [place] [address] Performed By: #### 1 9123-9, 2777-1, 04806-2 ####[facility]ORATORYCLIA [id number] [address] Urea nitrogen [Mass/Vol] 11 mg/dL Normal 9-24 [facility] Comment on above: Order Comment: Speci men Type: BLOOD SPECIMENOrdering Facility: [facility] Address: [address] [place] [address] Performed By: #### 1 9123-9, 2777-, 15183-6 ####[facility]ORATORYCLIA [id number] [address] CBC panel Auto (Bld)on 07-10 Erythrocyte distribution width (RBC) [Ratio] 16.2 % High 11.5-15.0 [facility] Comment on above: Order Comment: Speci men Type: BLOOD SPECIMENOrdering Facility: [facility] Address: [address] [place] [address] Performed By: #### 5 8410-2 ####[facility] LABORATORYCLIA [id number] [address] STATES OF [facility] Hematocrit (Bld) [Volume fraction] 30.6 % Low 39.0-51.0 [facility] Comment on above: Order Comment: Speci men Type: BLOOD SPECIMENOrdering Facility: [facility] Address: [address] [place] [address] Performed By: #### 5 8410-2 ####[facility]ORATORYCLIA [id number] [address] STATES OF [facility] Hemoglobin (Bld) [Mass/Vol] 9.6 g/dL Low 13.0-17.0 [facility] Comment on above: Order Comment: Speci men Type: BLOOD SPECIMENOrdering Facility: [facility] Address: [address] [place] [address] Performed By: #### 5 8410-2 ####[facility]ATORYCLIA [id number] [address] MCH (RBC) [Entitic mass] 28.3 pg Normal 26.0-34.0 [facility] Comment on above: Order Comment: Speci men Type: BLOOD SPECIMENOrdering Facility: [facility] Address: [address] [place] [address] Performed By: #### 5 8410-2 ####[facility]ATORYCLIA [id number] [address] MCHC (RBC) [Mass/Vol] 31.4 g/dL Normal 30.5-36.0 [facility] Comment on above: Order Comment: Speci men Type: BLOOD SPECIMENOrdering Facility: [facility] Address: [address] [place] [address] Performed By: #### 5 8410-2 ####[facility]ATORYCLIA [id number] [address] MCV (RBC) [Entitic vol] 90.3 fL Normal 80.0-100.0 [facility] Comment on above: Order Comment: Speci men Type: BLOOD SPECIMENOrdering Facility: [facility] Address: [address] [place] [address] Performed By: #### 5 8410-2 ####[facility]ORATORYCLIA [id number] [address] Nucleated RBC (Bld) [#/Vol] 10*3/uL Normal <0.01 [facility] Comment on above: Order Comment: Speci men Type: BLOOD SPECIMENOrdering Facility: [facility] Address: [address] [place] [address] Performed By: #### 5 8410-2 ####[facility]ATORYCLIA [id number] [address] Platelet mean volume (Bld) [Entitic vol] 9.7 fL Normal 9.0-12.7 [facility] Comment on above: Order Comment: Speci men Type: BLOOD SPECIMENOrdering Facility: [facility] Address: [address] [place] [address] Performed By: #### 5 8410-2 ####[facility]ORATORYCLIA [id number] [address] OF [facility] Platelets (Bld) [#/Vol] 306 10*3/uL Normal 150-400 [facility] Comment on above: Order Comment: Speci men Type: BLOOD SPECIMENOrdering Facility: [facility] Address: [address] [place] [address] Performed By: #### 5 8410-2 ####[facility]ATORYCLIA [id number] [address] [place] RBC (Bld) [#/Vol] 3.39 10*6/uL Low 4.20-6.00 [facility] Comment on above: Order Comment: Speci men Type: BLOOD SPECIMENOrdering Facility: [facility] Address: [address] [place] [address] Performed By: #### 5 8410-2 ####[facility]ORATORYCLIA [id number] [address] OF [facility] WBC (Bld) [#/Vol] 9.81 10*3/uL Normal 3.70-11.00 [facility] Comment on above: Order Comment: Speci men Type: BLOOD SPECIMENOrdering Facility: [facility] Address: [address] [place] [address] Performed By: #### 5 8410-2 ####[facility]ORATORYCLIA [id number] [address] [place] CONSULTon 07-10-2021 CONSULT Normal [facility] CONSULT Normal [facility] Magnesium SerPl-mCncon 07-10 Magnesium [Mass/Vol] 1.9 mg/dL Normal 1.7-2.3 [facility] Comment on above: Order Comment: Speci men Type: BLOOD SPECIMENOrdering Facility: [facility] Address: [address] [place] [address] Performed By: #### 1 9123-9, 2777-1, 30793-4 ####[facility]ORATORYCLIA [id number] [address] OF [facility] NURSING PROGon 07-10-2021 NURSING PROG Normal [facility] NURSING PROG Normal [facility] NUTRITIONon 07-10-2021 NUTRITION Normal [facility] Phosphate SerPl-mCncon 07-10 Phosphate [Mass/Vol] 3.6 mg/dL Normal 2.7-4.8 [facility] Comment on above: Order Comment: Speci men Type: BLOOD SPECIMENOrdering Facility: [facility] Address: [address] [place] [address] Performed By: #### 1 9123-9, 2777-1, 98419-1 ####[facility]ATORYCLIA [id number] [address] OF [facility] US DVT LOWER BILon US DVT LOWER RAINER Normal [facility] aPTT PPPon 07-10-2021 aPTT Coag (PPP) [Time] 28.8 s Normal 23.0-32.4 [facility] Comment on above: Order Comment: Speci men Type: BLOOD SPECIMENOrdering Facility: [facility] Address: [address] [place] [address] Performed By: #### 1 4979-9 ####[facility]ATORYCLIA [id number] [address] STATES OF [facility] aPTT Coag (PPP) [Time] 28.4 s Normal 23.0-32.4 [facility] Comment on above: Order Comment: Speci men Type: BLOOD SPECIMENOrdering Facility: [facility] Address: [address] [place] [address] Performed By: #### 1 4979-9 ####[facility]ATORYCLIA [id number] [address] [place] ALLIED HEALTHon 07-09-2021 ALLIED HEALTH Normal [facility] Basic metabolic 2000 panelon 07-09-2021 Anion gap [Moles/Vol] 9 mmol/L Normal 9-18 [facility] Comment on above: Order Comment: Speci men Type: BLOOD SPECIMENOrdering Facility: [facility] Address: [address] [place] [address] Performed By: #### 1 9123-9, 2777-1, 02334-9 ####[facility]ORATORYCLIA [id number] [place] [address] [place] Calcium [Mass/Vol] 8.3 mg/dL Low 8.5-10.2 [facility] Comment on above: Order Comment: Speci men Type: BLOOD SPECIMENOrdering Facility: [facility] Address: [address] [place] [address] Performed By: #### 1 9123-9, 2777-1, 67901-9 ####[facility]ATORYCLIA [id number] [place] [address] [place] Chloride [Moles/Vol] 100 mmol/L Normal 97-105 [facility] Comment on above: Order Comment: Speci men Type: BLOOD SPECIMENOrdering Facility: [facility] Address: [address] [place] [address] Performed By: #### 1 9123-9, 2777-1, 74888-0 ####[facility]ATORYCLIA [id number] [place] [address] [place] CO2 [Moles/Vol] 29 mmol/L Normal 22-30 [facility] Comment on above: Order Comment: Speci men Type: BLOOD SPECIMENOrdering Facility: [facility] Address: [address] [place] [address] Performed By: #### 1 9123-9, 2777-1, 89110-5 ####[facility]ATORYCLIA [id number] [place] [address] [place] Creatinine [Mass/Vol] 0.61 mg/dL Low 0.73-1.22 [facility] Comment on above: Order Comment: Speci men Type: BLOOD SPECIMENOrdering Facility: [facility] Address: [address] [place] [address] Performed By: #### 1 9123-9, 2777-1, 98681-6 ####[facility]ITALIA [id number] [address] [place] ESTIMATED GLOMERULAR FILTRATION RATE 104 mL/min/1.73m??? Normal >=60 [facility] Comment on above: Order Comment: Shira feldman Type: BLOOD SPECIMENOrdering Facility: [facility] Address: [address] [place] [address] Result Comment: Luzmaria mated Glomerular Filtration Rate [...] GFR. Performed By: #### 1 9123-9, 2777-1, 09167-5 ####[facility]PITALIA [id number] [place] [address] [place] Glucose [Mass/Vol] 106 mg/dL High 74-99 [facility] Comment on above: Order Comment: Shira francia Type: BLOOD SPECIMENOrdering Facility: [facility] Address: [address] [place] [address] Result Comment: The [employer] Diabetes Association (ADA) provides guidance for cutoff [...] Standards of Medical Care in Diabetes 2016, [employer] Diabetes [employer]. Diabetes Care. 2016.39(Suppl 1). Performed By: #### 1 9123-9, 2777-, 31556-9 ####[facility] LABORATORYCLIA [id number] [address] [place] Potassium [Moles/Vol] 3.6 mmol/L Low 3.7-5.1 [facility] Comment on above: Order Comment: Speci men Type: BLOOD SPECIMENOrdering Facility: [facility] Address: [address] [place] [address] Performed By: #### 1 9123-9, 2777-, 42804-3 ####[facility] LABORATORYCLIA [id number] [address] STATES OF [facility] Sodium [Moles/Vol] 138 mmol/L Normal 136-144 [facility] Comment on above: Order Comment: Speci men Type: BLOOD SPECIMENOrdering Facility: [facility] Address: [address] [place] [address] Performed By: #### 1 9123-9, 2777-, 65975-1 ####[facility]ITALCLIA [id number] [address] STATES [facility] Urea nitrogen [Mass/Vol] 12 mg/dL Normal 9-24 [facility] Comment on above: Order Comment: Speci men Type: BLOOD SPECIMENOrdering Facility: [facility] Address: [address] [place] [address] Performed By: #### 1 9123-9, 2777-, 23998-3 ####[facility]ORATORYCLIA [id number] [address] STATES OF [facility] CBC panel Auto (Bld)on 07-09 Erythrocyte distribution width (RBC) [Ratio] 16.2 % High 11.5-15.0 [facility] Comment on above: Order Comment: Speci men Type: BLOOD SPECIMENOrdering Facility: [facility] Address: [address] [place] [address] Performed By: #### 5 8410-2 ####[facility]ORATORYCLIA [id number] [address] OF [facility] Hematocrit (Bld) [Volume fraction] 29.0 % Low 39.0-51.0 [facility] Comment on above: Order Comment: Speci men Type: BLOOD SPECIMENOrdering Facility: [facility] Address: [address] [place] [address] Performed By: #### 5 8410-2 ####[facility]ATORYCLIA [id number] [address] OF [facility] Hemoglobin (Bld) [Mass/Vol] 8.8 g/dL Low 13.0-17.0 [facility] Comment on above: Order Comment: Speci men Type: BLOOD SPECIMENOrdering Facility: [facility] Address: [address] [place] [address] Performed By: #### 5 8410-2 ####[facility]ATORYIA [id number] [address] MCH (RBC) [Entitic mass] 27.0 pg Normal 26.0-34.0 [facility] Comment on above: Order Comment: Speci men Type: BLOOD SPECIMENOrdering Facility: [facility] Address: [address] [place] [address] Performed By: #### 5 8410-2 ####[facility]ATORYIA [id number] [address] [place] MCHC (RBC) [Mass/Vol] 30.3 g/dL Low 30.5-36.0 [facility] Comment on above: Order Comment: Speci men Type: BLOOD SPECIMENOrdering Facility: [facility] Address: [address] [place] [address] Performed By: #### 5 8410-2 ####[facility]ATORYCLIA [id number] [address] MCV (RBC) [Entitic vol] 89.0 fL Normal 80.0-100.0 [facility] Comment on above: Order Comment: Speci men Type: BLOOD SPECIMENOrdering Facility: [facility] Address: [address] Performed By: #### 5 8410-2 ####[facility]ATORYCLIA [id number] [address] Nucleated RBC (Bld) [#/Vol] 10*3/uL Normal <0.01 [facility] Comment on above: Order Comment: Speci men Type: BLOOD SPECIMENOrdering Facility: [facility] Address: [address] [place] [address] Performed By: #### 5 8410-2 ####[facility]ORATORYCLIA [id number] [address] [place] Platelet mean volume (Bld) [Entitic vol] 9.8 fL Normal 9.0-12.7 [facility] Comment on above: Order Comment: Speci men Type: BLOOD SPECIMENOrdering Facility: [facility] Address: [address] [place] [address] Performed By: #### 5 8410-2 ####[facility]ATORYCLIA [id number] [address] [place] Platelets (Bld) [#/Vol] 281 10*3/uL Normal 150-400 [facility] Comment on above: Order Comment: Speci men Type: BLOOD SPECIMENOrdering Facility: [facility] Address: [address] [place] [address] Performed By: #### 5 8410-2 ####[facility]ATORYCLIA [id number] [address] [place] RBC (Bld) [#/Vol] 3.26 10*6/uL Low 4.20-6.00 [facility] Comment on above: Order Comment: Speci men Type: BLOOD SPECIMENOrdering Facility: [facility] Address: [address] [place] [address] Performed By: #### 5 8410-2 ####[facility]ORATORYCLIA [id number] [address] [place] WBC (Bld) [#/Vol] 9.12 10*3/uL Normal 3.70-11.00 [facility] Comment on above: Order Comment: Speci men Type: BLOOD SPECIMENOrdering Facility: [facility] Address: [address] [place] [address] Performed By: #### 5 8410-2 ####[facility]ORATORYCLIA [id number] [address] CONSULT PROGon 07-09-2021 CONSULT PROG Normal [facility] CONSULT PROG Normal [facility] HISTORY PHYSICALon HISTORY PHYSICAL Normal [facility] Magnesium SerPl-mCncon 07-09 Magnesium [Mass/Vol] 1.9 mg/dL Normal 1.7-2.3 [facility] Comment on above: Order Comment: Speci men Type: BLOOD SPECIMENOrdering Facility: [facility] Address: [address] [place] [address] Performed By: #### 1 9123-9, 2777-1, 86429-2 ####[facility]ATORYCLIA [id number] [address] Phosphate SerPl-mCncon 07-09 Phosphate [Mass/Vol] 3.6 mg/dL Normal 2.7-4.8 [facility] Comment on above: Order Comment: Speci men Type: BLOOD SPECIMENOrdering Facility: [facility] Address: [address] [place] [address] Performed By: #### 1 9123-9, 2777-1, 18887-3 ####[facility]ORATORYCLIA [id number] [address] [place] THERAPY NTon 07-09-2021 THERAPY NT Normal [facility] XR ABDOMEN 1V SUPINEon 07-09 XR ABDOMEN 1V SUPINE Normal [facility] ALLIED HEALTHon 07-08-2021 ALLIED HEALTH Normal [facility] ALLIED HEALTH Normal [facility] ALLIED HEALTH Normal [facility] ANES PRE-OPon 07-08-2021 ANES PRE-OP Normal [facility] BRIEF OP NOTon 07-08-2021 BRIEF OP NOT Normal [facility] Bacteria Bld Culton 07-09-19 22 Bacteria identified Cx Nom (Bld) CULTURE, BLOOD: No growth 5 days Normal [facility] Comment on above: Performed By: #### 6 00-7 ####[facility]ATORYCLIA [id number] [address] Bacteria identified Cx Nom (Bld) CULTURE, BLOOD: No growth 5 days Normal [facility] Comment on above: Performed By: #### 6 00-7 ####[facility]ORATORYCLIA [id number] [address] OF [facility] Bacteria CSF Culton 07-09-19 22 Bacteria identified Cx Nom (CSF) CULTURE, CSF: No growth 14 days GRAM STAIN: No organisms seen No Polymorphonuclear Leukocytes Few Red Blood Cells Gram stain performed on cytospun specimen. Normal [facility] Comment on above: Performed By: #### 6 06-4 ####[facility]ORATORYCLIA [id number] [address] Bacteria Ur Culton 2 Bacteria identified Cx Nom (U) ORGANISM ID: 1 10,000 -<50,000 CFU/ml Proteus species Insignificant colony count. No further workup. ORGANISM ID: 2 <10,000 CFU/ml Normal urogenital chris Normal [facility] Comment on above: Performed By: #### 6 30-4 ####[facility]ATORYCLIA [id number] [address] Bacteria Wnd Culton 07-09-19 22 Bacteria identified Cx Nom (Wound) ORGANISM ID: 1 Coagulase negative staphylococcus Growth in Enrichment Broth Only No susceptibility testing done. Call lab within 72 hours to initiate work-up if clinically indicated. GRAM STAIN: Account credited. Not performed on this specimen type. [facility] Comment on above: Performed By: #### 6 462-6 ####[facility]ORATORYCLIA [id number] [place] [address] Bacteria identified Cx Nom (Wound) ORGANISM ID: 1 Rare Coagulase negative staphylococcus No susceptibility testing done. Call lab within 72 hours to initiate work-up if clinically indicated. GRAM STAIN: Account credited. Not performed on this specimen type. [facility] Comment on above: Performed By: #### 6 462-6 ####[facility]ATORYCLIA [id number] [address] Bacteria identified Cx Nom (Wound) CULTURE, INTRAOPERATIVE HARDWARE: No growth 14 days GRAM STAIN: Account credited. Not performed on this specimen type. Normal [facility] Comment on above: Performed By: #### 6 462-6 ####[facility]ATORYCLIA [id number] [address] OF [facility] Basic metabolic 2000 panelon 07-08-2021 Anion gap [Moles/Vol] 9 mmol/L Normal 9-18 [facility] Comment on above: Order Comment: Speci men Type: BLOOD SPECIMENOrdering Facility: [facility] Address: [address] [place] [place] [address] Performed By: #### 2 4321-2 ####[facility]ORATORYCLIA [id number] [address] [place] Calcium [Mass/Vol] 8.5 mg/dL Normal 8.5-10.2 [facility] Comment on above: Order Comment: Speci men Type: BLOOD SPECIMENOrdering Facility: [facility] Address: [address] [address] Performed By: #### 2 4321-2 ####[facility]ATORYCLIA [id number] [address] [place] Chloride [Moles/Vol] 98 mmol/L Normal 97-105 [facility] Comment on above: Order Comment: Speci men Type: BLOOD SPECIMENOrdering Facility: [facility] Address: [address] [address] Performed By: #### 2 4321-2 ####[facility]ATORYCLIA [id number] [address] [place] CO2 [Moles/Vol] 31 mmol/L High 22-30 [facility] Comment on above: Order Comment: Speci men Type: BLOOD SPECIMENOrdering Facility: [facility] Address: [address] [place] [address] Performed By: #### 2 4321-2 ####[facility]ATORYCLIA [id number] [address] [place] Creatinine [Mass/Vol] 0.64 mg/dL Low 0.73-1.22 [facility] Comment on above: Order Comment: Speci men Type: BLOOD SPECIMENOrdering Facility: [facility] Address: [address] [place] [address] Performed By: #### 2 4321-2 ####[facility]ATORYCLIA [id number] [address] ESTIMATED GLOMERULAR FILTRATION RATE 102 mL/min/1.73m??? Normal >=60 [facility] Comment on above: Order Comment: Speci men Type: BLOOD SPECIMENOrdering Facility: [facility] Address: [address] [place] [address] Result Comment: Luzmaria mated Glomerular Filtration Rate [...] actual GFR. Performed By: #### 2 4321-2 ####[facility]ATORYCLIA [id number] [address] [place] Glucose [Mass/Vol] 114 mg/dL High 74-99 [facility] Comment on above: Order Comment: Speci men Type: BLOOD SPECIMENOrdering Facility: [facility] Address: [address] [place] [address] Result Comment: The [place] Diabetes Association (ADA) provides guidance for cutoff [...] Standards of Medical Care in Diabetes 2016, [place] Diabetes Association. Diabetes Care. 2016.39(Suppl 1). Performed By: #### 2 4321-2 ####[facility]ATORYCLIA [id number] [address] STATES OF [facility] Potassium [Moles/Vol] 3.4 mmol/L Low 3.7-5.1 [facility] Comment on above: Order Comment: Speci francia Type: BLOOD SPECIMENOrdering Facility: [facility] Address: [address] [place] [address] Performed By: #### 2 1-2 ####[facility]ATORYCLIA [id number] [address] STATES [facility] Sodium [Moles/Vol] 138 mmol/L Normal 136-144 [facility] Comment on above: Order Comment: Shira feldman Type: BLOOD SPECIMENOrdering Facility: [facility] Address: [address] [place] [address] Performed By: #### 2 1-2 ####[facility]ATORYCLIA [id number] [address] STATES [facility] Urea nitrogen [Mass/Vol] 14 mg/dL Normal 9-24 [facility] Comment on above: Order Comment: Shira feldman Type: BLOOD SPECIMENOrdering Facility: [facility] Address: [address] [place] [address] Performed By: #### 2 4321-2 ####[facility]ATORYCLIA [id number] [place] [address] [place] CBC W Auto Differential pane l (Bld)on 07-08-2021 Basophils (Bld) [#/Vol] 0.05 10*3/uL Normal <0.11 [facility] Comment on above: Order Comment: Speci men Type: BLOOD SPECIMENOrdering Facility: [facility] Address: [address] [place] [address] Performed By: #### 5 7021-8 ####[facility]ATORYCLIA [id number] [address] [place] Basophils/100 WBC (Bld) 0.4 % Normal [facility] Comment on above: Order Comment: Speci men Type: BLOOD SPECIMENOrdering Facility: [facility] Address: [address] [place] [address] Performed By: #### 5 7021-8 ####[facility]ATORYCLIA [id number] [address] [place] Differential cell count method Nom (Bld) Auto Normal [facility] Comment on above: Order Comment: Speci men Type: BLOOD SPECIMENOrdering Facility: [facility] Address: [address] [place] [address] Performed By: #### 5 7021-8 ####[facility]ATORYCLIA [id number] [address] [place] Eosinophils (Bld) [#/Vol] 0.68 10*3/uL High <0.46 [facility] Comment on above: Order Comment: Speci men Type: BLOOD SPECIMENOrdering Facility: [facility] Address: [address] [place] [address] Performed By: #### 5 7021-8 ####[facility]ORYCLIA [id number] [address] [place] Eosinophils/100 WBC (Bld) 5.4 % Normal [facility] Comment on above: Order Comment: Speci men Type: BLOOD SPECIMENOrdering Facility: [facility] Address: [address] [place] [address] Performed By: #### 5 7021-8 ####[facility]ATORYCLIA [id number] [address] Erythrocyte distribution width (RBC) [Ratio] 16.3 % High 11.5-15.0 [facility] Comment on above: Order Comment: Speci men Type: BLOOD SPECIMENOrdering Facility: [facility] Address: [address] [place] [address] Performed By: #### 5 7021-8 ####[facility]ATORYCLIA [id number] [address] Hematocrit (Bld) [Volume fraction] 35.7 % Low 39.0-51.0 [facility] Comment on above: Order Comment: Speci men Type: BLOOD SPECIMENOrdering Facility: [facility] Address: [address] [place] [address] Performed By: #### 5 7021-8 ####[facility]ITALCLIA [id number] [address] OF [facility] Hemoglobin (Bld) [Mass/Vol] 10.8 g/dL Low 13.0-17.0 [facility] Comment on above: Order Comment: Speci men Type: BLOOD SPECIMENOrdering Facility: [facility] Address: [address] [place] [address] Performed By: #### 5 7021-8 ####[facility]ATORYCLIA [id number] [address] IMMATURE GRAN % 0.4 % Normal [facility] Comment on above: Order Comment: Speci men Type: BLOOD SPECIMENOrdering Facility: [facility] Address: [address] [place] [address] Performed By: #### 5 7021-8 ####[facility]ATORYCLIA [id number] [address] IMMATURE GRAN ABS 0.05 k/uL Normal <0.10 [facility] Comment on above: Order Comment: Speci men Type: BLOOD SPECIMENOrdering Facility: [facility] Address: [address] [place] [address] Performed By: #### 5 7021-8 ####[facility]ORYCLIA [id number] [address] STATES OF [facility] Lymphocytes (Bld) [#/Vol] 1.85 10*3/uL Normal 1.00-4.00 [facility] Comment on above: Order Comment: Speci men Type: BLOOD SPECIMENOrdering Facility: [facility] Address: [address] [place] [address] Performed By: #### 5 7021-8 ####[facility]ORYCLIA [id number] [address] Lymphocytes/100 WBC (Bld) 14.7 % Normal [facility] Comment on above: Order Comment: Speci men Type: BLOOD SPECIMENOrdering Facility: [facility] Address: [address] [place] [address] Performed By: #### 5 7021-8 ####[facility]ATORYCLIA [id number] [address] STATES OF [facility] MCH (RBC) [Entitic mass] 27.1 pg Normal 26.0-34.0 [facility] Comment on above: Order Comment: Speci men Type: BLOOD SPECIMENOrdering Facility: [facility] Address: [address] [place] [address] Performed By: #### 5 7021-8 ####[facility]ATORYCLIA [id number] [address] [place] MCHC (RBC) [Mass/Vol] 30.3 g/dL Low 30.5-36.0 [facility] Comment on above: Order Comment: Speci men Type: BLOOD SPECIMENOrdering Facility: [facility] Address: [address] [place] [address] Performed By: #### 5 7021-8 ####[facility]ATORYCLIA [id number] [address] [place] MCV (RBC) [Entitic vol] 89.7 fL Normal 80.0-100.0 [facility] Comment on above: Order Comment: Speci men Type: BLOOD SPECIMENOrdering Facility: [facility] Address: [address] [place] [address] Performed By: #### 5 7021-8 ####[facility]ATORYCLIA [id number] [place] [address] [place] Monocytes (Bld) [#/Vol] 0.87 10*3/uL High <0.87 [facility] Comment on above: Order Comment: Speci men Type: BLOOD SPECIMENOrdering Facility: [facility] Address: [address] [place] [address] Performed By: #### 5 7021-8 ####[facility]ATORYCLIA [id number] [address] [place] Monocytes/100 WBC (Bld) 6.9 % Normal [facility] Comment on above: Order Comment: Speci men Type: BLOOD SPECIMENOrdering Facility: [facility] Address: [address] [place] [address] Performed By: #### 5 7021-8 ####[facility]ATORYCLIA [id number] [place] [address] [place] Neutrophils (Bld) [#/Vol] 9.05 10*3/uL High 1.45-7.50 [facility] Comment on above: Order Comment: Speci men Type: BLOOD SPECIMENOrdering Facility: [facility] Address: [address] [place] [address] Performed By: #### 5 7021-8 ####[facility]ATORYCLIA [id number] [address] [place] Neutrophils/100 WBC (Bld) 72.2 % Normal [facility] Comment on above: Order Comment: Speci men Type: BLOOD SPECIMENOrdering Facility: [facility] Address: [address] [place] [address] Performed By: #### 5 7021-8 ####[facility]ATORYCLIA [id number] [address] Nucleated RBC (Bld) [#/Vol] 10*3/uL Normal <0.01 [facility] Comment on above: Order Comment: Speci men Type: BLOOD SPECIMENOrdering Facility: [facility] Address: [address] [place] [address] Performed By: #### 5 7021-8 ####[facility]ATORYCLIA [id number] [address] [place] Nucleated RBC/100 WBC (Bld) [Ratio] 0.0 /100 WBC Normal [facility] Comment on above: Order Comment: Speci men Type: BLOOD SPECIMENOrdering Facility: [facility] Address: [address] [place] [address] Performed By: #### 5 7021-8 ####[facility]ATORYCLIA [id number] [address] [place] Platelet mean volume (Bld) [Entitic vol] 9.9 fL Normal 9.0-12.7 [facility] Comment on above: Order Comment: Speci men Type: BLOOD SPECIMENOrdering Facility: [facility] Address: [address] [place] [address] Performed By: #### 5 7021-8 ####[facility]ATORYCLIA [id number] [address] [place] Platelets (Bld) [#/Vol] 335 10*3/uL Normal 150-400 [facility] Comment on above: Order Comment: Speci men Type: BLOOD SPECIMENOrdering Facility: [facility] Address: [address] [place] [address] Performed By: #### 5 7021-8 ####[facility]ATORYCLIA [id number] [address] [place] RBC (Bld) [#/Vol] 3.98 10*6/uL Low 4.20-6.00 [facility] Comment on above: Order Comment: Speci men Type: BLOOD SPECIMENOrdering Facility: [facility] Address: [address] [place] [address] Performed By: #### 5 7021-8 ####[facility]ATORYCLIA [id number] [place] [address] [place] WBC (Bld) [#/Vol] 12.55 10*3/uL High 3.70-11.00 [facility] Comment on above: Order Comment: Speci men Type: BLOOD SPECIMENOrdering Facility: [facility] Address: [address] [place] [address] Performed By: #### 5 7021-8 ####[facility]ORATORYCLIA [id number] [address] OF [facility] CK CREATINE KINASEon 022 CK [Catalytic activity/Vol] 72 U/L Normal 51-298 [facility] Comment on above: Order Comment: Speci men Type: BLOOD SPECIMENOrdering Facility: [facility] Address: [address] [place] [address] Performed By: #### C K, 11998-4 ####[facility]ATORYCLIA [id number] [address] [place] CONSULT PROGon 07-08-2021 CONSULT PROG Normal [facility] CONSULT PROG Normal [facility] CSF MANUAL DIFFon 07-08-2021 DIF TTL, CSF 3 cells counted Normal [facility] Comment on above: Order Comment: Speci men Type: CEREBROSPINAL FLUIDOrdering Facility: [facility] Address: [address] [place] [address] Performed By: #### 3 4563-7, [id number] ####[facility] LABORATORYCLIA [id number] [place] LYMPH%, CSF 33 % Low 50-90 [facility] Comment on above: Order Comment: Speci men Type: CEREBROSPINAL FLUIDOrdering Facility: [facility] Address: [address] [place] [address] Performed By: #### 3 4563-7, [id number] ####[facility]ORATORYCLIA [id number] [place] [address] [place] MONO%, CSF 67 % High 10-50 [facility] Comment on above: Order Comment: Speci men Type: CEREBROSPINAL FLUIDOrdering Facility: [facility] Address: [address] [place] [address] Performed By: #### 3 4563-7, [id number] ####[facility] LABORATORYCLIA [id number] [place] [address] [place] CT ABD/PEL W IVCONon 022 CT ABD/PEL W IVCON Normal [facility] CT BRAIN WO IVCONon 07-09-[address] BRAIN WO IVCON Normal [facility] CT BRAIN WO IVCON Normal [facility] CT CHEST W IVCON PEon 2021 CT CHEST W IVCON PE Normal [facility] Cell count panel (CSF)on Clarity (CSF) Clear Normal Clear [facility] Comment on above: Order Comment: Speci men Type: CEREBROSPINAL FLUIDOrdering Facility: [facility] Address: [address] [place] [address] Performed By: #### 3 4563-7, [id number] ####[facility] LABORATORYCLIA [id number] [address] [place] Clarity (Unsp spec) Clear Normal Clear [facility] Comment on above: Order Comment: Speci men Type: CEREBROSPINAL FLUIDOrdering Facility: [facility] Address: [address] [place] [address] Performed By: #### 3 4563-7, [id number] ####[facility] LABORATORYCLIA [id number] [address] [place] Color (CSF) Colorless Normal Colorless [facility] Comment on above: Order Comment: Speci men Type: CEREBROSPINAL FLUIDOrdering Facility: [facility] Address: [address] [place] [address] Performed By: #### 3 4563-7, [id number] ####[facility] LABORATORYCLIA [id number] [address] Color (Spun CSF) Colorless Normal Colorless [facility] Comment on above: Order Comment: Speci men Type: CEREBROSPINAL FLUIDOrdering Facility: [facility] Address: [address] [place] [address] Performed By: #### 3 4563-7, [id number] ####[facility] LABORATORYCLIA [id number] [address] CSF TUBE [employer]BER [employer] Normal [facility] Comment on above: Order Comment: Speci men Type: CEREBROSPINAL FLUIDOrdering Facility: [facility] Address: [address] [place] [address] Performed By: #### 3 4563-7, [id number] ####[facility] LABORATORYCLIA [id number] [address] [place] RBC Manual cnt (CSF) [#/Vol] 94 cells/uL High 0-5 [facility] Comment on above: Order Comment: Speci men Type: CEREBROSPINAL FLUIDOrdering Facility: [facility] Address: [address] [place] [address] Performed By: #### 3 4563-7, [id number] ####[facility] LABORATORYCLIA [id number] [address] WBC Manual cnt (CSF) [#/Vol] 1 cells/uL Normal 0-5 [facility] Comment on above: Order Comment: Speci men Type: CEREBROSPINAL FLUIDOrdering Facility: [facility] Address: [address] [address] Performed By: #### 3 4563-7, [id number] ####[facility] LABORATORYCLIA [id number] [address] [place] Comprehensive metabolic 2000 panelon 07-08-2021 Albumin [Mass/Vol] 3.6 g/dL Low 3.9-4.9 [facility] Comment on above: Order Comment: Speci men Type: BLOOD SPECIMENOrdering Facility: [facility] Address: [address] [place], [place] [id number] Performed By: #### Eileen Valdivia, 92627-4 ####[facility] LABORATORYCLIA [id number] [address] STATES OF [facility] ALP [Catalytic activity/Vol] 125 U/L High 38-113 [facility] Comment on above: Order Comment: Speci men Type: BLOOD SPECIMENOrdering Facility: [facility] Address: [address] [place] [address] Performed By: #### Eileen Valdivia, 41770-6 ####[facility] LABORATORYCLIA [id number] [address] OF [facility] ALT With P-5'-P [Catalytic activity/Vol] 24 U/L Normal 10-54 [facility] Comment on above: Order Comment: Speci men Type: BLOOD SPECIMENOrdering Facility: [facility] Address: [address] [place] [address] Performed By: #### Eileen Valdivia, 55141-0 ####[facility] LABORATORYCLIA [id number] [address] Anion gap [Moles/Vol] 16 mmol/L Normal 9-18 [facility] Comment on above: Order Comment: Speci men Type: BLOOD SPECIMENOrdering Facility: [facility] Address: [address] [place] [address] Performed By: #### Eileen Valdivia, 52561-1 ####[facility] LABORATORYCLIA [id number] [address] [place] AST With P-5'-P [Catalytic activity/Vol] 21 U/L Normal 14-40 [facility] Comment on above: Order Comment: Speci men Type: BLOOD SPECIMENOrdering Facility: [facility] Address: [facility] [place] [address] Performed By: #### Eileen Valdivia, 46515-3 ####[facility] LABORATORYCLIA [id number] [address] [place] Bilirubin [Mass/Vol] 0.3 mg/dL Normal 0.2-1.3 [facility] Comment on above: Order Comment: Speci men Type: BLOOD SPECIMENOrdering Facility: [facility] Address: [address] [place] [address] Performed By: #### Eileen Valdivia, 63256-3 ####[facility] LABORATORYCLIA [id number] [place] [address] [place] Calcium [Mass/Vol] 8.9 mg/dL Normal 8.5-10.2 [facility] Comment on above: Order Comment: Speci men Type: BLOOD SPECIMENOrdering Facility: [facility] Address: [address] [place] [address] Performed By: #### Eileen Valdivia, 60787-0 ####[facility] LABORATORYCLIA [id number] [place] [address] [place] Chloride [Moles/Vol] 96 mmol/L Low 97-105 [facility] Comment on above: Order Comment: Speci men Type: BLOOD SPECIMENOrdering Facility: [facility] Address: [address] [place] [address] Performed By: #### Eileen Valdivia, 52926-2 ####[facility] LABORATORYCLIA [id number] [place] [address] [place] CO2 [Moles/Vol] 27 mmol/L Normal 22-30 [facility] Comment on above: Order Comment: Speci men Type: BLOOD SPECIMENOrdering Facility: [facility] Address: [address] [place] [address] Performed By: #### Eileen Valdivia, 84433-1 ####[facility] LABORATORYCLIA [id number] [place] [address] [place] Creatinine [Mass/Vol] 0.68 mg/dL Low 0.73-1.22 [facility] Comment on above: Order Comment: Speci men Type: BLOOD SPECIMENOrdering Facility: [facility] Address: [address] [place] [address] Performed By: #### Eileen Valdivia, 40713-3 ####[facility] LABORATORYCLIA [id number] [place] [address] [place] ESTIMATED GLOMERULAR FILTRATION RATE 101 mL/min/1.73m??? Normal >=60 [facility] Comment on above: Order Comment: Johncara feldman Type: BLOOD SPECIMENOrdering Facility: [facility] Address: [address] [place] [address] Result Comment: Luzmaria mated Glomerular Filtration Rate [...] actual GFR. Performed By: #### Eileen Valdivia, 68721-4 ####[facility] HOSPITALCLIA [id number] [place] [address] [place] Glucose [Mass/Vol] 130 mg/dL High 74-99 [facility] Comment on above: Order Comment: Shira feldman Type: BLOOD SPECIMENOrdering Facility: [facility] Address: [address] [place] [address] Result Comment: The [place] Diabetes Association (ADA) provides guidance for cutoff [...] Standards of Medical Care in Diabetes 2016, [place] Diabetes Association. Diabetes Care. 2016.39(Suppl 1). Performed By: #### Eileen Valdivia, 04218-2 ####[facility] LABORATORYCLIA [id number] [place] [address] [place] Potassium [Moles/Vol] 3.9 mmol/L Normal 3.7-5.1 [facility] Comment on above: Order Comment: Speci men Type: BLOOD SPECIMENOrdering Facility: [facility] Address: [address] [place] [address] Performed By: #### C Skip, 28343-0 ####[facility] LABORATORYCLIA [id number] [address] [place] Protein [Mass/Vol] 7.0 g/dL Normal 6.3-8.0 [facility] Comment on above: Order Comment: Speci men Type: BLOOD SPECIMENOrdering Facility: [facility] Address: [address] [place] [address] Performed By: #### Eileen Valdivia, 21276-1 ####[facility]ORATORYCLIA [id number] [address] Sodium [Moles/Vol] 139 mmol/L Normal 136-144 [facility] Comment on above: Order Comment: Speci men Type: BLOOD SPECIMENOrdering Facility: [facility] Address: [address] [place] [address] Performed By: #### C Skip, 65262-5 ####[facility]ORATORYCLIA [id number] [address] Urea nitrogen [Mass/Vol] 16 mg/dL Normal 9-24 [facility] Comment on above: Order Comment: Speci men Type: BLOOD SPECIMENOrdering Facility: [facility] Address: [address] [place] [address] Performed By: #### Eileen Valdivia, 97256-9 ####[facility] LABORATORYCLIA [id number] [address] [place] ED NOTEon 07-08-2021 ED NOTE HNO ID: [id number] Author: Lenora James RN Service: Emergency Medicine Author Type: Registered Nurse Type: ED Notes Filed: 07/08/2021 5:03 PM Note Text: Pt to OR with surgical team Normal [facility] ED NOTE HNO ID: [id number] Author: Lenora James RN Service: Emergency Medicine Author Type: Registered Nurse Type: ED Notes Filed: 07/08/2021 4:50 PM Note Text: OR team to get pt [facility] ED NOTE HNO ID: [id number] Author: Lenora James RN Service: Emergency Medicine Author Type: Registered Nurse Type: ED Notes Filed: 07/08/2021 4:50 PM Note Text: Normal [facility] ED NOTE HNO ID: [id number] Author: Lenora James RN Service: Emergency Medicine Author Type: Registered Nurse Type: ED Notes Filed: 07/08/2021 4:50 PM Note Text: Spoke with presurg; pt to go to OR now [facility] ED NOTE HNO ID: [id number] Author: Lenora James RN Service: Emergency Medicine Author Type: Registered Nurse Type: ED Notes Filed: 07/08/2021 4:12 PM Note Text: Neurosurgery at beside [facility] ED NOTE HNO ID: [id number] Author: Lenora James RN Service: Emergency Medicine Author Type: Registered Nurse Type: ED Notes Filed: 07/08/2021 2:35 PM Note Text: respiratory aware of pt breathing treatments [facility] ED NOTE HNO ID: [id number] Author: Lisa Woo RN Service: ? Author Type: Registered Nurse Type: ED Notes Filed: 07/08/2021 2:20 PM Note Text: Xray notified pt is ready. [facility] ED NOTE HNO ID: [id number] Author: Lenora James RN Service: Emergency Medicine Author Type: Registered Nurse Type: ED Notes Filed: 07/08/2021 12:14 PM Note Text: CT notified regarding imaging orders placed [facility] ED NOTE Normal [facility] ED PROV NOTEon 07-08-2021 ED PROV NOTE Normal [facility] Glucose CSF-mCncon Glucose (CSF) [Mass/Vol] 88 mg/dL High 40-70 [facility] Comment on above: Order Comment: Speci men Type: CEREBROSPINAL FLUIDOrdering Facility: [facility] Address: [address] [place] [phone] Result Comment: Lumb ar CSF glucose values of healthy patients are approximately 60% of the plasma values and must always be compared with a concurrently measured plasma value for adequate clinical interpretation.References: 1. Glucose HK (GLUC3) [package insert V 12.0 [place]]. [employer], [place], [place]. September 2015. 2. Michelle Moore, Michelle Manjarrez (2015). Chapter 7: Glucose and Lactate. F. Irina rose al.(eds.), Cerebrospinal Fluid in Clinical Neurology. [place]: [employer]. Performed By: #### 2 880-3, 2342-4 ####[facility] LABORATORYCLIA [id number] [address] HIGH SENSITIVITY TROPONIN To n 07-08-2021 HIGH SENSITIVITY TAMIKO 27 ng/L High <12 [facility] Comment on above: Order Comment: Shira feldman Type: BLOOD SPECIMENOrdering Facility: [facility] Address: [address] [place] [address] Result Comment: When assessing risk for acute [...] day MACE. Performed By: #### H STNT ####[facility] LABORATORYCLIA [id number] [address] HIGH SENSITIVITY TAMIKO 36 ng/L High <12 [facility] Comment on above: Order Comment: Shira feldman Type: BLOOD SPECIMENOrdering Facility: [facility] Address: [address] [place] [address] Result Comment: When assessing risk for acute [...] day MACE. Performed By: #### H STNT ####[facility] LABORATORYCLIA [id number] [address] [place] HISTORY PHYSICALon 2 HISTORY PHYSICAL Normal [facility] NURSING PROGon 07-08-2021 NURSING PROG Normal [facility] OPERATIVE NOon 07-08-2021 OPERATIVE NO Normal [facility] Prot CSF-mCncon 07-08-2021 Protein (CSF) [Mass/Vol] 33 mg/dL Normal 15-45 [facility] Comment on above: Order Comment: Speci men Type: CEREBROSPINAL FLUIDOrdering Facility: [facility] Address: [address] [place] [address] Performed By: #### 2 880-3, 2342-4 ####[facility] LABORATORYCLIA [id number] [address] [place] SARS-CoV-2 RNA Resp Ql MEGAN+p robeon 07-08-2021 SARS-CoV-2 (COVID-19) RNA MEGAN+probe Ql (Resp) COVID 19 RESULT: SARS-CoV-2 (Agent of COVID-19) Not Detected by RT-PCR or equivalent method. This test has been authorized by FDA under an Emergency Use Authorization (EUA). Normal [facility] Comment on above: Performed By: #### 9 4500-6 ####[facility] LABORATORYCLIA [id number] [address] [place] STAPH AUREUS PCRon 2 S. aureus and MRSA panel MEGAN+probe (Nose) Normal Negative [facility] Comment on above: Order Comment: Speci men Type: SWAB OF INTERNAL NOSEOrdering Facility: [facility] Address: [address] [place] [address] Result Comment: Nega tive for Staphylococcus aureus by PCR.Negative for MRSA by PCR Performed By: #### S APCR ####[facility] LABORATORYCLIA [id number] [address] [place] Urinalysis complete panel (U )on 07-08-2021 Bacteria LM.HPF (Urine sed) [#/Area] Few Abnormal None Seen [facility] Comment on above: Order Comment: Speci men Type: URINE SPECIMENOrdering Facility: [facility] Address: [address] [place] [address] Performed By: #### 2 4356-8 ####[facility] LABORATORYCLIA [id number] [place] [address] [place] Bilirubin Ql (U) Negative Normal Negative [facility] Comment on above: Order Comment: Speci men Type: URINE SPECIMENOrdering Facility: [facility] Address: [address] [place] [address] Performed By: #### 2 4356-8 ####[facility] LABORATORYCLIA [id number] [address] [place] Clarity (Unsp spec) Turbid Abnormal Clear [facility] Comment on above: Order Comment: Speci men Type: URINE SPECIMENOrdering Facility: [facility] Address: [address] [place] [address] Performed By: #### 2 4356-8 ####[facility] LABORATORYCLIA [id number] [place] [address] [place] Color (U) Light Yellow Normal yellow [facility] Comment on above: Order Comment: Speci men Type: URINE SPECIMENOrdering Facility: [facility] Address: [address] [place] [address] Performed By: #### 2 4356-8 ####[facility] LABORATORYCLIA [id number] [address] [place] Glucose Test strip (U) [Mass/Vol] Negative Normal Negative [facility] Comment on above: Order Comment: Speci men Type: URINE SPECIMENOrdering Facility: [facility] Address: [address] [place] [address] Performed By: #### 2 4356-8 ####[facility] LABORATORYCLIA [id number] [place] [address] [place] Hemoglobin Ql (U) Negative Normal Negative [facility] Comment on above: Order Comment: Speci men Type: URINE SPECIMENOrdering Facility: [facility] Address: [address] [place] [address] Performed By: #### 2 4356-8 ####[facility] LABORATORYCLIA [id number] [address] Hyaline casts (Urine sed) [#/Area] 1-3 /LPF Abnormal 0 /LPF [facility] Comment on above: Order Comment: Speci men Type: URINE SPECIMENOrdering Facility: [facility] Address: [address] [place] [address] Performed By: #### 2 4356-8 ####[facility] LABORATORYCLIA [id number] [address] Ketones Ql (U) Negative Normal Negative [facility] Comment on above: Order Comment: Speci men Type: URINE SPECIMENOrdering Facility: [facility] Address: [address] [place] [address] Performed By: #### 2 4356-8 ####[facility] LABORATORYCLIA [id number] [address] Leukocyte esterase Test strip Ql (U) Negative Normal Negative [facility] Comment on above: Order Comment: Speci men Type: URINE SPECIMENOrdering Facility: [facility] Address: [address] [place] [address] Performed By: #### 2 4356-8 ####[facility] LABORATORYCLIA [id number] [address] [place] Nitrite Ql (U) Negative Normal Negative [facility] Comment on above: Order Comment: Speci men Type: URINE SPECIMENOrdering Facility: [facility] Address: [address] [place] [address] Performed By: #### 2 4356-8 ####[facility] LABORATORYCLIA [id number] [address] [place] pH (U) 5.0 [pH] Normal 5.0-8.0 [facility] Comment on above: Order Comment: Speci men Type: URINE SPECIMENOrdering Facility: [facility] Address: [address] [place] [address] Performed By: #### 2 4356-8 ####[facility] LABORATORYCLIA [id number] [address] Protein (U) [Mass/Vol] Negative Normal Negative [facility] Comment on above: Order Comment: Speci men Type: URINE SPECIMENOrdering Facility: [facility] Address: [address] [place] [address] Performed By: #### 2 4356-8 ####[facility] LABORATORYCLIA [id number] [address] RBC LM.HPF (Urine sed) [#/Area] 11-25 /HPF Abnormal 0-3 /HPF [facility] Comment on above: Order Comment: Speci men Type: URINE SPECIMENOrdering Facility: [facility] Address: [address] [place] [address] Performed By: #### 2 4356-8 ####[facility] LABORATORYCLIA [id number] [address] Specific gravity (U) [Rel density] 1.018 Normal 1.005-1.030 [facility] Comment on above: Order Comment: Speci men Type: URINE SPECIMENOrdering Facility: [facility] Address: [address] [place] [address] Performed By: #### 2 4356-8 ####[facility] LABORATORYCLIA [id number] [address] Urobilinogen Ql (U) Normal Normal Negative [facility] Comment on above: Order Comment: Speci men Type: URINE SPECIMENOrdering Facility: [facility] Address: [address] [place] [address] Performed By: #### 2 4356-8 ####[facility] LABORATORYCLIA [id number] [address] [place] WBC LM.HPF (Urine sed) [#/Area] /[HPF] Abnormal 0-5 /HPF [facility] Comment on above: Order Comment: Speci men Type: URINE SPECIMENOrdering Facility: [facility] Address: [facility] [place] [address] Performed By: #### 2 4356-8 ####[facility] LABORATORYCLIA [id number] [address] OF [facility] Vancomycin random [Mass/Vol] on 07-08-2021 Vancomycin [Mass/Vol] 31.0 ug/mL High 10.0-20.0 [facility] Comment on above: Order Comment: Speci men Type: BLOOD SPECIMENOrdering Facility: [facility] Address: [address] [place], [place] [address] [address] Result Comment: Refe rence ranges and high/low indicator flags are provided as general guidelines only. The treating physician must determine appropriate target levels/dosing based on the specific clinical situation. Performed By: #### 4 091-5 ####[facility] LABORATORYCLIA [id number] [address] XR ABD 2V SUPINE W UPR/DECUB /CTLon 07-08-2021 XR ABD 2V SUPINE W UPR/DECUB/CTL Normal [facility] XR CHEST 1V FRONTALon 2021 XR CHEST 1V FRONTAL Normal [facility] XR CHEST 1V FRONTAL Normal [facility] XR NECK SOFT TISSUE 2V AP/LA Ton 07-08-2021 XR NECK SOFT TISSUE 2V AP/LAT Normal [facility] XR SKULL 2V AP/LATon 022 XR SKULL 2V AP/LAT Normal [facility] HISTORY PHYSICALon HISTORY PHYSICAL HNO ID: [id number] Author: Amy Beltran MD Service: ? Author Type: Physician Type: HANDP Filed: 06/30/2021 6:42 PM Note Text: Connected Care Unit History and Physical Facility: [place] Level of Care: Skilled Admission Date: June [...] regarding the above plan. Total time spent oajp-ip-tofe and/or counseling and coordinating care on the skilled care unit for patient was approximately 45 minutes SUBJECTIVE (HISTORY) Chief Complaint: Confusion, infection, blood clot. Andrew Sifuentes is being seen today for [facility] AND management of weakness, tube feed, infected retroperitoneal infection and seizure. HPI: This is a 71 year old male who presents from [facility] with primary admitting diagnosis of Seizure, [...] CT brain concerning for hydrocephalus. 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 Normal [facility] Basic metabolic 2000 panelon 06-28-2021 Anion gap [Moles/Vol] 7 mmol/L Low 9-18 [facility] Comment on above: Order Comment: Speci men Type: BLOOD SPECIMENOrdering Facility: [facility] Address: [address] [place] [address] Performed By: #### 2 4321-2, ####[facility]ORATORYCLIA [id number] [place] [address] [place] Calcium [Mass/Vol] 8.8 mg/dL Normal 8.5-10.2 [facility] Comment on above: Order Comment: Speci men Type: BLOOD SPECIMENOrdering Facility: [facility] Address: [address] [place] [address] Performed By: #### 2 2, ####[facility] LABORATORYCLIA [id number] [place] [address] [place] Chloride [Moles/Vol] 103 mmol/L Normal 97-105 [facility] Comment on above: Order Comment: Speci men Type: BLOOD SPECIMENOrdering Facility: [facility] Address: [address] [place] [address] Performed By: #### 2 2, ####[facility] LABORATORYCLIA [id number] [place] [address] [place] CO2 [Moles/Vol] 28 mmol/L Normal 22-30 [facility] Comment on above: Order Comment: Speci men Type: BLOOD SPECIMENOrdering Facility: [facility] Address: [address] [place] [address] Performed By: #### 2 4320-2, ####[facility] LABORATORYCLIA [id number] [place] [address] [place] Creatinine [Mass/Vol] 0.57 mg/dL Low 0.73-1.22 [facility] Comment on above: Order Comment: Speci men Type: BLOOD SPECIMENOrdering Facility: [facility] Address: [address] [id number] Performed By: #### 2 4321-2, 70102-3 ####[facility] HOSPITALIA [id number] [place] [address] [place] GFR/1.73 sq M.predicted MDRD (S/P/Bld) [Vol rate/Area] mL/min/{1.73_m2} Normal [facility] Comment on above: Order Comment: Shira feldman Type: BLOOD SPECIMENOrdering Facility: [facility] Address: [address] [place], [place] [id number] Result Comment: >60e GFR (Estimated GFR) Units [...] actual GFR. Performed By: #### 2 4321-2, 05651-8 ####[facility] HOSPITALIA [id number] [place] [address] [place] Glucose [Mass/Vol] 120 mg/dL High 74-99 [facility] Comment on above: Order Comment: Shira francia Type: BLOOD SPECIMENOrdering Facility: [facility] Address: [address] [phone] Result Comment: The [place] Diabetes Association (ADA) provides guidance for cutoff [...] Standards of Medical Care in Diabetes 2016, [employer] Diabetes Association. Diabetes Care. 2016.39(Suppl 1). Performed By: #### 2 4320-2, ####[facility]ATORYCLIA [id number] [address] STATES OF [facility] Potassium [Moles/Vol] 3.8 mmol/L Normal 3.7-5.1 [facility] Comment on above: Order Comment: Speci men Type: BLOOD SPECIMENOrdering Facility: [facility] Address: [address] [place] [address] Performed By: #### 2 4320-06, ####[facility]ATORYCLIA [id number] [address] STATES [facility] Sodium [Moles/Vol] 138 mmol/L Normal 136-144 [facility] Comment on above: Order Comment: Shira feldman Type: BLOOD SPECIMENOrdering Facility: [facility] Address: [address] [place] [address] Performed By: #### 2 4320-06, ####[facility]ATORYCLIA [id number] [address] STATES [facility] Urea nitrogen [Mass/Vol] 24 mg/dL Normal 9-24 [facility] Comment on above: Order Comment: Shira feldman Type: BLOOD SPECIMENOrdering Facility: [facility] Address: [address] [place] [address] Performed By: #### 2 4320-06, ####[facility]ATORYCLIA [id number] [address] [place] CASE MANAGEMon 06-28-2021 CASE MANAGEM Normal [facility] CBC panel Auto (Bld)on 06-28 Erythrocyte distribution width (RBC) [Ratio] 15.6 % High 11.5-15.0 [facility] Comment on above: Order Comment: Johni francia Type: BLOOD SPECIMENOrdering Facility: [facility] Address: [address] [address] Performed By: #### 5 8410-2 ####[facility]ORATORYCLIA [id number] [address] Hematocrit (Bld) [Volume fraction] 30.5 % Low 39.0-51.0 [facility] Comment on above: Order Comment: Speci men Type: BLOOD SPECIMENOrdering Facility: [facility] Address: [address] [place] [address] Performed By: #### 5 8410-2 ####[facility]ATORYCLIA [id number] [address] Hemoglobin (Bld) [Mass/Vol] 9.4 g/dL Low 13.0-17.0 [facility] Comment on above: Order Comment: Speci men Type: BLOOD SPECIMENOrdering Facility: [facility] Address: [address] [place] [address] Performed By: #### 5 8410-2 ####[facility]ATORYCLIA [id number] [address] MCH (RBC) [Entitic mass] 27.8 pg Normal 26.0-34.0 [facility] Comment on above: Order Comment: Speci men Type: BLOOD SPECIMENOrdering Facility: [facility] Address: [address] [place] [address] Performed By: #### 5 8410-2 ####[facility]ATORYCLIA [id number] [address] MCHC (RBC) [Mass/Vol] 30.8 g/dL Normal 30.5-36.0 [facility] Comment on above: Order Comment: Speci men Type: BLOOD SPECIMENOrdering Facility: [facility] Address: [address] [place] [address] Performed By: #### 5 8410-2 ####[facility]ATORYCLIA [id number] [address] MCV (RBC) [Entitic vol] 90.2 fL Normal 80.0-100.0 [facility] Comment on above: Order Comment: Speci men Type: BLOOD SPECIMENOrdering Facility: [facility] Address: [facility] [address] Performed By: #### 5 8410-2 ####[facility]ATORYCLIA [id number] [address] [place] Nucleated RBC (Bld) [#/Vol] 10*3/uL Normal <0.01 [facility] Comment on above: Order Comment: Speci men Type: BLOOD SPECIMENOrdering Facility: [facility] Address: [address] [place] [address] Performed By: #### 5 8410-2 ####[facility]ATORYCLIA [id number] [address] [place] Platelet mean volume (Bld) [Entitic vol] 9.9 fL Normal 9.0-12.7 [facility] Comment on above: Order Comment: Speci men Type: BLOOD SPECIMENOrdering Facility: [facility] Address: [address] [place] [address] Performed By: #### 5 8410-2 ####[facility]ATORYCLIA [id number] [address] [place] Platelets (Bld) [#/Vol] 333 10*3/uL Normal 150-400 [facility] Comment on above: Order Comment: Speci men Type: BLOOD SPECIMENOrdering Facility: [facility] Address: [address] [place], [place] [address] Performed By: #### 5 8410-2 ####[facility]ATORYCLIA [id number] [address] [place] RBC (Bld) [#/Vol] 3.38 10*6/uL Low 4.20-6.00 [facility] Comment on above: Order Comment: Speci men Type: BLOOD SPECIMENOrdering Facility: [facility] Address: [address] [place] [address] Performed By: #### 5 8410-2 ####[facility]ATORYCLIA [id number] [address] WBC (Bld) [#/Vol] 9.71 10*3/uL Normal 3.70-11.00 [facility] Comment on above: Order Comment: Speci men Type: BLOOD SPECIMENOrdering Facility: [facility] Address: [address] [place] [address] Performed By: #### 5 8410-2 ####[facility]ATORYCLIA [id number] [address] OF [place] CNDSon 06-28-2021 CNDS Normal [facility] CONSULT PROGon 06-28-2021 CONSULT PROG Normal [facility] Magnesium SerPl-mCncon 06-28 Magnesium [Mass/Vol] 2.2 mg/dL Normal 1.7-2.3 [facility] Comment on above: Order Comment: Speci men Type: BLOOD SPECIMENOrdering Facility: [facility] Address: [address] [place] [address] Performed By: #### 2 4321-2, 73140-2 ####[facility]ATORYCLIA [id number] [address] Vancomycin random [Mass/Vol] on 06-28-2021 Vancomycin [Mass/Vol] 23.0 ug/mL High 10.0-20.0 [facility] Comment on above: Order Comment: Speci men Type: BLOOD SPECIMENOrdering Facility: [facility] Address: [address] [place] [address] Result Comment: Refe rence ranges and high/low indicator flags are provided as general guidelines only. The treating physician must determine appropriate target levels/dosing based on the specific clinical situation. Performed By: #### 4 091-5 ####[facility]ATORYCLIA [id number] [address] [place] ALLIED HEALTHon 06-27-2021 ALLIED HEALTH Normal [facility] Basic metabolic 2000 panelon 06-27-2021 Anion gap [Moles/Vol] 10 mmol/L Normal 9-18 [facility] Comment on above: Order Comment: Speci men Type: BLOOD SPECIMENOrdering Facility: [facility] Address: [address] [place] [address] Performed By: #### 2 4321-2, ####[facility] LABORATORYCLIA [id number] [place] [address] [place] Calcium [Mass/Vol] 8.8 mg/dL Normal 8.5-10.2 [facility] Comment on above: Order Comment: Speci men Type: BLOOD SPECIMENOrdering Facility: [facility] Address: [address] [place] [address] Performed By: #### 2 4321-2, ####[facility]ATORYCLIA [id number] [place] [address] [place] Chloride [Moles/Vol] 104 mmol/L Normal 97-105 [facility] Comment on above: Order Comment: Speci men Type: BLOOD SPECIMENOrdering Facility: [facility] Address: [address] [place] [address] Performed By: #### 2 4320-2, ####[facility]ATORYCLIA [id number] [place] [address] [place] CO2 [Moles/Vol] 26 mmol/L Normal 22-30 [facility] Comment on above: Order Comment: Speci men Type: BLOOD SPECIMENOrdering Facility: [facility] Address: [address] [address] Performed By: #### 2 4321-2, ####[facility]ATORYCLIA [id number] [place] [address] [place] Creatinine [Mass/Vol] 0.57 mg/dL Low 0.73-1.22 [facility] Comment on above: Order Comment: Speci men Type: BLOOD SPECIMENOrdering Facility: [facility] Address: [address] [place] [address] Performed By: #### 2 4321-2, 84630-7 ####[facility]ORATORYCLIA [id number] [address] [place] [id number] [place] GFR/1.73 sq M.predicted MDRD (S/P/Bld) [Vol rate/Area] mL/min/{1.73_m2} Normal [facility] Comment on above: Order Comment: Shira feldman Type: BLOOD SPECIMENOrdering Facility: [facility] Address: [address] [address] Result Comment: >60e GFR (Estimated GFR) Units [...] actual GFR. Performed By: #### 2 4321-2, 73107-9 ####[facility]ATORYCLIA [id number] [address] [id number] [place] Glucose [Mass/Vol] 133 mg/dL High 74-99 [facility] Comment on above: Order Comment: Shira feldman Type: BLOOD SPECIMENOrdering Facility: [facility] Address: [address] [address] Result Comment: The [place] Diabetes Association (ADA) provides guidance for cutoff [...] Standards of Medical Care in Diabetes 2016, [place] Diabetes Association. Diabetes Care. 2016.39(Suppl 1). Performed By: #### 2 4321-2, 52350-4 ####[facility]ATORYCLIA [id number] [place] [address] [place] Potassium [Moles/Vol] 4.2 mmol/L Normal 3.7-5.1 [facility] Comment on above: Order Comment: Speci men Type: BLOOD SPECIMENOrdering Facility: [facility] Address: [address] [place] [address] Performed By: #### 2 432-2, ####[facility]ATORYCLIA [id number] [address] [place] Sodium [Moles/Vol] 140 mmol/L Normal 136-144 [facility] Comment on above: Order Comment: Speci men Type: BLOOD SPECIMENOrdering Facility: [facility] Address: [address] [place] [address] Performed By: #### 2 43205-08, ####[facility]ATORYCLIA [id number] [address] [place] Urea nitrogen [Mass/Vol] 24 mg/dL Normal 9-24 [facility] Comment on above: Order Comment: Speci men Type: BLOOD SPECIMENOrdering Facility: [facility] Address: [address] [place] [address] Performed By: #### 2 43205-08, ####[facility]ATORYCLIA [id number] [address] [place] CASE MANAGEMon 06-27-2021 CASE MANAGEM Normal [facility] CBC panel Auto (Bld)on 06-27 Erythrocyte distribution width (RBC) [Ratio] 15.8 % High 11.5-15.0 [facility] Comment on above: Order Comment: Speci men Type: BLOOD SPECIMENOrdering Facility: [facility] Address: [address] [place] [address] Performed By: #### 5 8410-2 ####[facility]ATORYCLIA [id number] [address] Hematocrit (Bld) [Volume fraction] 31.4 % Low 39.0-51.0 [facility] Comment on above: Order Comment: Speci men Type: BLOOD SPECIMENOrdering Facility: [facility] Address: [address] [place] [address] Performed By: #### 5 8410-2 ####[facility]ATORYCLIA [id number] [address] Hemoglobin (Bld) [Mass/Vol] 9.3 g/dL Low 13.0-17.0 [facility] Comment on above: Order Comment: Speci men Type: BLOOD SPECIMENOrdering Facility: [facility] Address: [address] [place] [address] Performed By: #### 5 8410-2 ####[facility]ATORYCLIA [id number] [address] MCH (RBC) [Entitic mass] 27.0 pg Normal 26.0-34.0 [facility] Comment on above: Order Comment: Speci men Type: BLOOD SPECIMENOrdering Facility: [facility] Address: [address] [place] [address] Performed By: #### 5 8410-2 ####[facility]ATORYCLIA [id number] [address] OF [facility] MCHC (RBC) [Mass/Vol] 29.6 g/dL Low 30.5-36.0 [facility] Comment on above: Order Comment: Speci men Type: BLOOD SPECIMENOrdering Facility: [facility] Address: [address] [place] [address] Performed By: #### 5 8410-2 ####[facility]ATORYCLIA [id number] [address] OF [facility] MCV (RBC) [Entitic vol] 91.3 fL Normal 80.0-100.0 [facility] Comment on above: Order Comment: Speci men Type: BLOOD SPECIMENOrdering Facility: [facility] Address: [address] Performed By: #### 5 8410-2 ####[facility]ORATORYCLIA [id number] [place] [address] [place] Nucleated RBC (Bld) [#/Vol] 10*3/uL Normal <0.01 [facility] Comment on above: Order Comment: Speci men Type: BLOOD SPECIMENOrdering Facility: [facility] Address: [address] [place] [address] Performed By: #### 5 8410-2 ####[facility]ATORYCLIA [id number] [place] [address] [place] Platelet mean volume (Bld) [Entitic vol] 10.3 fL Normal 9.0-12.7 [facility] Comment on above: Order Comment: Speci men Type: BLOOD SPECIMENOrdering Facility: [facility] Address: [address] [place] [address] Performed By: #### 5 8410-2 ####[facility]ATORYCLIA [id number] [address] [place] Platelets (Bld) [#/Vol] 359 10*3/uL Normal 150-400 [facility] Comment on above: Order Comment: Speci men Type: BLOOD SPECIMENOrdering Facility: [facility] Address: [address] Performed By: #### 5 8410-2 ####[facility]ORATORYCLIA [id number] [place] [address] [place] RBC (Bld) [#/Vol] 3.44 10*6/uL Low 4.20-6.00 [facility] Comment on above: Order Comment: Speci men Type: BLOOD SPECIMENOrdering Facility: [facility] Address: [address] [place] [address] Performed By: #### 5 8410-2 ####[facility]ATORYCLIA [id number] [place] [address] [place] WBC (Bld) [#/Vol] 10.73 10*3/uL Normal 3.70-11.00 [facility] Comment on above: Order Comment: Speci men Type: BLOOD SPECIMENOrdering Facility: [facility] Address: [address] [place] [address] Performed By: #### 5 8410-2 ####[facility]ORATORYCLIA [id number] [address] OF [place] Magnesium SerPl-[facility]27 Magnesium [Mass/Vol] 2.2 mg/dL Normal 1.7-2.3 [facility] Comment on above: Order Comment: Speci men Type: BLOOD SPECIMENOrdering Facility: [facility] Address: [address] [place] [address] Performed By: #### 2 4321-2, 79508-7 ####[facility]ATORYCLIA [id number] [address] NT-proBNP SerPl-[facility]on 06-27 Natriuretic peptide.B prohormone N-Terminal [Mass/Vol] 184 pg/mL High <125 [facility] Comment on above: Order Comment: Speci men Type: BLOOD SPECIMENOrdering Facility: [facility] Address: [address] [place] [address] Performed By: #### 3 3762-6 ####[facility]ORATORYCLIA [id number] [place] [address] [place] NUTRITIONon 06-27-2021 NUTRITION Normal [facility] THERAPY NTon 06-27-2021 THERAPY NT Normal [facility] THERAPY NT Normal [facility] XR CHEST 1V FRONTALon 2021 XR CHEST 1V FRONTAL Normal [facility] Basic metabolic 2000 panelon 06-26-2021 Anion gap [Moles/Vol] 9 mmol/L Normal 9-18 [facility] Comment on above: Order Comment: Speci men Type: BLOOD SPECIMENOrdering Facility: [facility] Address: [address] [address] Performed By: #### 1 239, 00989-4 ####[facility]ATORYCLIA [id number] [place] [address] [place] Calcium [Mass/Vol] 8.7 mg/dL Normal 8.5-10.2 [facility] Comment on above: Order Comment: Speci men Type: BLOOD SPECIMENOrdering Facility: [facility] Address: [address] [place] [address] Performed By: #### 1 9123-01, 71994-6 ####[facility]ATORYCLIA [id number] [place] [address] [place] Chloride [Moles/Vol] 105 mmol/L Normal 97-105 [facility] Comment on above: Order Comment: Speci men Type: BLOOD SPECIMENOrdering Facility: [facility] Address: [address] [place] [address] Performed By: #### 1 9123-01, 45867-6 ####[facility]ATORYCLIA [id number] [place] [address] [place] CO2 [Moles/Vol] 26 mmol/L Normal 22-30 [facility] Comment on above: Order Comment: Speci men Type: BLOOD SPECIMENOrdering Facility: [facility] Address: [address] [address] Performed By: #### 1 9123-01, 52961-2 ####[facility]ORATORYCLIA [id number] [place] [address] [place] Creatinine [Mass/Vol] 0.56 mg/dL Low 0.73-1.22 [facility] Comment on above: Order Comment: Speci men Type: BLOOD SPECIMENOrdering Facility: [facility] Address: [address] [address] Performed By: #### 1 9123-01, 48484-6 ####[facility]ATORYCLIA [id number] [place] [address] [place] GFR/1.73 sq M.predicted MDRD (S/P/Bld) [Vol rate/Area] mL/min/{1.73_m2} Normal [facility] Comment on above: Order Comment: Shira feldman Type: BLOOD SPECIMENOrdering Facility: [facility] Address: [address] [place] [address] Result Comment: >60e GFR (Estimated GFR) Units [...] actual GFR. Performed By: #### 1 9123-9, 14264-7 ####[facility]ATORYCLIA [id number] [address] [place] Glucose [Mass/Vol] 134 mg/dL High 74-99 [facility] Comment on above: Order Comment: Shira feldman Type: BLOOD SPECIMENOrdering Facility: [facility] Address: [address] [place] [address] Result Comment: The [place] Diabetes Association (ADA) provides guidance for cutoff [...] Standards of Medical Care in Diabetes 2016, [place] Diabetes [employer]. Diabetes Care. 2016.39(Suppl 1). Performed By: #### 1 9123-9, 48026-0 ####[facility]ATORYCLIA [id number] [address] [place] Potassium [Moles/Vol] 3.8 mmol/L Normal 3.7-5.1 [facility] Comment on above: Order Comment: Speci men Type: BLOOD SPECIMENOrdering Facility: [facility] Address: [address] [place] [address] Performed By: #### 1 9123-9, 25482-0 ####[facility]ORATORYCLIA [id number] [address] STATES OF [facility] Sodium [Moles/Vol] 140 mmol/L Normal 136-144 [facility] Comment on above: Order Comment: Speci men Type: BLOOD SPECIMENOrdering Facility: [facility] Address: [address] [place] [address] Performed By: #### 1 9123-9, 26417-1 ####[facility]ORATORYCLIA [id number] [address] STATES [facility] Urea nitrogen [Mass/Vol] 24 mg/dL Normal 9-24 [facility] Comment on above: Order Comment: Speci men Type: BLOOD SPECIMENOrdering Facility: [facility] Address: [address] [place] [address] Performed By: #### 1 9123-9, 09700-5 ####[facility]ORATORYCLIA [id number] [address] STATES [facility] CBC panel Auto (Bld)on 06-26 Erythrocyte distribution width (RBC) [Ratio] 15.9 % High 11.5-15.0 [facility] Comment on above: Order Comment: Speci men Type: BLOOD SPECIMENOrdering Facility: [facility] Address: [address] [place] [address] Performed By: #### 5 8410-2 ####[facility]ORATORYCLIA [id number] [address] [place] Hematocrit (Bld) [Volume fraction] 29.8 % Low 39.0-51.0 [facility] Comment on above: Order Comment: Speci men Type: BLOOD SPECIMENOrdering Facility: [facility] Address: [address] [place] [address] Performed By: #### 5 8410-2 ####[facility]ORATORYCLIA [id number] [address] OF [facility] Hemoglobin (Bld) [Mass/Vol] 9.1 g/dL Low 13.0-17.0 [facility] Comment on above: Order Comment: Speci men Type: BLOOD SPECIMENOrdering Facility: [facility] Address: [address] [place] [address] Performed By: #### 5 8410-2 ####[facility]ORATORYCLIA [id number] [address] STATES OF [facility] MCH (RBC) [Entitic mass] 27.8 pg Normal 26.0-34.0 [facility] Comment on above: Order Comment: Speci men Type: BLOOD SPECIMENOrdering Facility: [facility] Address: [address] [place] [address] Performed By: #### 5 8410-2 ####[facility]ATORYCLIA [id number] [address] MCHC (RBC) [Mass/Vol] 30.5 g/dL Normal 30.5-36.0 [facility] Comment on above: Order Comment: Speci men Type: BLOOD SPECIMENOrdering Facility: [facility] Address: [address] [place] [address] Performed By: #### 5 8410-2 ####[facility]ATORYCLIA [id number] [address] [place] MCV (RBC) [Entitic vol] 91.1 fL Normal 80.0-100.0 [facility] Comment on above: Order Comment: Speci men Type: BLOOD SPECIMENOrdering Facility: [facility] Address: [address] [place] [address] Performed By: #### 5 8410-2 ####[facility]ATORYCLIA [id number] [address] [place] Nucleated RBC (Bld) [#/Vol] 10*3/uL Normal <0.01 [facility] Comment on above: Order Comment: Speci men Type: BLOOD SPECIMENOrdering Facility: [facility] Address: [address] [place] [address] Performed By: #### 5 8410-2 ####[facility]ATORYCLIA [id number] [address] [place] Platelet mean volume (Bld) [Entitic vol] 10.3 fL Normal 9.0-12.7 [facility] Comment on above: Order Comment: Speci men Type: BLOOD SPECIMENOrdering Facility: [facility] Address: [address] [place] [address] Performed By: #### 5 8410-2 ####[facility] LABORATORYCLIA [id number] [address] [place] Platelets (Bld) [#/Vol] 336 10*3/uL Normal 150-400 [facility] Comment on above: Order Comment: Speci men Type: BLOOD SPECIMENOrdering Facility: [facility] Address: [address] [place] [address] Performed By: #### 5 8410-2 ####[facility] LABORATORYCLIA [id number] [address] [place] RBC (Bld) [#/Vol] 3.27 10*6/uL Low 4.20-6.00 [facility] Comment on above: Order Comment: Speci men Type: BLOOD SPECIMENOrdering Facility: [facility] Address: [address] [place] [address] Performed By: #### 5 8410-2 ####[facility]ORATORYCLIA [id number] [address] [place] WBC (Bld) [#/Vol] 9.14 10*3/uL Normal 3.70-11.00 [facility] Comment on above: Order Comment: Speci men Type: BLOOD SPECIMENOrdering Facility: [facility] Address: [address] [place] [address] Performed By: #### 5 8410-2 ####[facility] LABORATORYCLIA [id number] [address] [place] CONSULT PROGon 06-26-2021 CONSULT PROG Normal [facility] Magnesium SerPl-mCncon 06-26 Magnesium [Mass/Vol] 2.2 mg/dL Normal 1.7-2.3 [facility] Comment on above: Order Comment: Speci men Type: BLOOD SPECIMENOrdering Facility: [facility] Address: [address] [place] [address] Performed By: #### 1 9123-9, 32821-3 ####[facility] LABORATORYCLIA [id number] [address] NURSING PROGon 06-26-2021 NURSING PROG Normal [facility] NURSING PROG Normal [facility] Basic metabolic 2000 panelon 06-25-2021 Anion gap [Moles/Vol] 8 mmol/L Low 9-18 [facility] Comment on above: Order Comment: Speci men Type: BLOOD SPECIMENOrdering Facility: [facility] Address: [address] [place] [address] Performed By: #### 2 4321-2, ####[facility] LABORATORYCLIA [id number] [place] [address] [place] Calcium [Mass/Vol] 8.8 mg/dL Normal 8.5-10.2 [facility] Comment on above: Order Comment: Speci men Type: BLOOD SPECIMENOrdering Facility: [facility] Address: [address] [place] [address] Performed By: #### 2 4321-2, ####[facility] LABORATORYCLIA [id number] [place] [address] [place] Chloride [Moles/Vol] 105 mmol/L Normal 97-105 [facility] Comment on above: Order Comment: Speci men Type: BLOOD SPECIMENOrdering Facility: [facility] Address: [address] [place] [address] Performed By: #### 2 4321-2, ####[facility]ORATORYCLIA [id number] [address] STATES OF [facility] CO2 [Moles/Vol] 27 mmol/L Normal 22-30 [facility] Comment on above: Order Comment: Speci men Type: BLOOD SPECIMENOrdering Facility: [facility] Address: [address] [place] [address] Performed By: #### 2 4321-2, ####[facility] LABORATORYCLIA [id number] [address] STATES [place] Creatinine [Mass/Vol] 0.59 mg/dL Low 0.73-1.22 [facility] Comment on above: Order Comment: Speci men Type: BLOOD SPECIMENOrdering Facility: [facility] Address: [address] [place] [address] Performed By: #### 2 4321-2, ####[facility]ORATORYCLIA [id number] [address] [place] GFR/1.73 sq M.predicted MDRD (S/P/Bld) [Vol rate/Area] mL/min/{1.73_m2} Normal [facility] Comment on above: Order Comment: Speci men Type: BLOOD SPECIMENOrdering Facility: [facility] Address: [address] [place] [address] Result Comment: >60e GFR (Estimated GFR) Units [...] actual GFR. Performed By: #### 2 43205-08, ####[facility] LABORATORYCLIA [id number] [place] [address] [place] Glucose [Mass/Vol] 132 mg/dL High 74-99 [facility] Comment on above: Order Comment: Shira francia Type: BLOOD SPECIMENOrdering Facility: [facility] Address: [address] [place] [address] Result Comment: The [place] Diabetes Association (ADA) provides guidance for cutoff [...] Standards of Medical Care in Diabetes 2016, [employer]. Diabetes Care. 2016.39(Suppl 1). Performed By: #### 2 43205-08, ####[facility] LABORATORYCLIA [id number] [place] [address] [place] Potassium [Moles/Vol] 3.9 mmol/L Normal 3.7-5.1 [facility] Comment on above: Order Comment: Shira men Type: BLOOD SPECIMENOrdering Facility: [facility] Address: [address] [phone] Performed By: #### 2 4320-06, ####[facility] LABORATORYCLIA [id number] [place] [id number] [place] Sodium [Moles/Vol] 140 mmol/L Normal 136-144 [facility] Comment on above: Order Comment: Shira men Type: BLOOD SPECIMENOrdering Facility: [facility] Address: [address] [phone] Performed By: #### 2 4320-06, ####[facility] LABORATORYCLIA [id number] [place] [address] [place] Urea nitrogen [Mass/Vol] 24 mg/dL Normal 9-24 [facility] Comment on above: Order Comment: Speci men Type: BLOOD SPECIMENOrdering Facility: [facility] Address: [address] [place] [address] Performed By: #### 2 4321-2, ####[facility]ORATORYCLIA [id number] [address] STATES [place] CASE MANAGEMon 06-25-2021 CASE MANAGEM Normal [facility] CBC panel Auto (Bld)on 06-25 Erythrocyte distribution width (RBC) [Ratio] 15.9 % High 11.5-15.0 [facility] Comment on above: Order Comment: Speci men Type: BLOOD SPECIMENOrdering Facility: [facility] Address: [address] [place] [address] Performed By: #### 5 8410-2 ####[facility] LABORATORYCLIA [id number] [address] STATES [place] Hematocrit (Bld) [Volume fraction] 31.0 % Low 39.0-51.0 [facility] Comment on above: Order Comment: Speci men Type: BLOOD SPECIMENOrdering Facility: [facility] Address: [address] [place] [address] Performed By: #### 5 8410-2 ####[facility]ORATORYCLIA [id number] [address] STATES [place] Hemoglobin (Bld) [Mass/Vol] 9.4 g/dL Low 13.0-17.0 [facility] Comment on above: Order Comment: Speci men Type: BLOOD SPECIMENOrdering Facility: [facility] Address: [address] [place] [address] Performed By: #### 5 8410-2 ####[facility] LABORATORYCLIA [id number] [place] [address] [place] MCH (RBC) [Entitic mass] 28.1 pg Normal 26.0-34.0 [facility] Comment on above: Order Comment: Speci men Type: BLOOD SPECIMENOrdering Facility: [facility] Address: [address] [place] [address] Performed By: #### 5 8410-2 ####[facility]ORATORYCLIA [id number] [place] [address] [place] MCHC (RBC) [Mass/Vol] 30.3 g/dL Low 30.5-36.0 [facility] Comment on above: Order Comment: Speci men Type: BLOOD SPECIMENOrdering Facility: [facility] Address: [address] [place] [address] Performed By: #### 5 8410-2 ####[facility]ORATORYCLIA [id number] [address] STATES OF [place] MCV (RBC) [Entitic vol] 92.5 fL Normal 80.0-100.0 [facility] Comment on above: Order Comment: Speci men Type: BLOOD SPECIMENOrdering Facility: [facility] Address: [address] [place] [address] Performed By: #### 5 8410-2 ####[facility] LABORATORYCLIA [id number] [address] [place] Nucleated RBC (Bld) [#/Vol] 10*3/uL Normal <0.01 [facility] Comment on above: Order Comment: Speci men Type: BLOOD SPECIMENOrdering Facility: [facility] Address: [address] [place] [address] Performed By: #### 5 8410-2 ####[facility]ORATORYCLIA [id number] [address] STATES [place] Platelet mean volume (Bld) [Entitic vol] 10.5 fL Normal 9.0-12.7 [facility] Comment on above: Order Comment: Speci men Type: BLOOD SPECIMENOrdering Facility: [facility] Address: [address] [place] [address] Performed By: #### 5 8410-2 ####[facility]ORATORYCLIA [id number] [address] Platelets (Bld) [#/Vol] 311 10*3/uL Normal 150-400 [facility] Comment on above: Order Comment: Speci men Type: BLOOD SPECIMENOrdering Facility: [facility] Address: [address] [place] [address] Performed By: #### 5 8410-2 ####[facility] LABORATORYCLIA [id number] [address] OF [facility] RBC (Bld) [#/Vol] 3.35 10*6/uL Low 4.20-6.00 [facility] Comment on above: Order Comment: Speci men Type: BLOOD SPECIMENOrdering Facility: [facility] Address: [address] [place] [address] Performed By: #### 5 8410-2 ####[facility] LABORATORYCLIA [id number] [address] WBC (Bld) [#/Vol] 9.57 10*3/uL Normal 3.70-11.00 [facility] Comment on above: Order Comment: Speci men Type: BLOOD SPECIMENOrdering Facility: [facility] Address: [address] [place] [address] Performed By: #### 5 8410-2 ####[facility]ORATORYCLIA [id number] [address] OF [facility] Magnesium SerPl-mCncon 06-25 Magnesium [Mass/Vol] 2.4 mg/dL High 1.7-2.3 [facility] Comment on above: Order Comment: Speci men Type: BLOOD SPECIMENOrdering Facility: [facility] Address: [address] [place] [address] Performed By: #### 2 4321-2, 37857-8 ####[facility]ORATORYCLIA [id number] [address] Basic metabolic 2000 panelon 06-24-2021 Anion gap [Moles/Vol] 9 mmol/L Normal 9-18 [facility] Comment on above: Order Comment: Speci men Type: BLOOD SPECIMENOrdering Facility: [facility] Address: [address] [place] [address] Performed By: #### 1 9123-9, 14305-6 ####[facility]ORATORYCLIA [id number] [place] [address] [place] Calcium [Mass/Vol] 8.6 mg/dL Normal 8.5-10.2 [facility] Comment on above: Order Comment: Speci men Type: BLOOD SPECIMENOrdering Facility: [facility] Address: [address] [place] [address] Performed By: #### 1 9123-9, 90093-6 ####[facility]ORATORYCLIA [id number] [address] [place] Chloride [Moles/Vol] 103 mmol/L Normal 97-105 [facility] Comment on above: Order Comment: Speci men Type: BLOOD SPECIMENOrdering Facility: [facility] Address: [address] [place] [address] Performed By: #### 1 9123-9, 66772-4 ####[facility]ORATORYCLIA [id number] [address] [place] CO2 [Moles/Vol] 26 mmol/L Normal 22-30 [facility] Comment on above: Order Comment: Speci men Type: BLOOD SPECIMENOrdering Facility: [facility] Address: [address] [place] [address] Performed By: #### 1 9123-9, 50303-4 ####[facility]ORATORYCLIA [id number] [address] [place] Creatinine [Mass/Vol] 0.60 mg/dL Low 0.73-1.22 [facility] Comment on above: Order Comment: Speci men Type: BLOOD SPECIMENOrdering Facility: [facility] Address: [address] [phone] Performed By: #### 1 9123-9, 35558-0 ####[facility]ITALIA [id number] [place] [address] [place] GFR/1.73 sq M.predicted MDRD (S/P/Bld) [Vol rate/Area] mL/min/{1.73_m2} Normal [facility] Comment on above: Order Comment: Shira feldman Type: BLOOD SPECIMENOrdering Facility: [facility] Address: [address] [address] Result Comment: >60e GFR (Estimated GFR) Units [...] actual GFR. Performed By: #### 1 9123-9, 56810-2 ####[facility]OSPITALIA [id number] [place] [address] [place] Glucose [Mass/Vol] 126 mg/dL High 74-99 [facility] Comment on above: Order Comment: Shira feldman Type: BLOOD SPECIMENOrdering Facility: [facility] Address: [address] [address] Result Comment: The [place] Diabetes Association (ADA) provides guidance for cutoff [...] Standards of Medical Care in Diabetes 2016, [place] Diabetes [employer]. Diabetes Care. 2016.39(Suppl 1). Performed By: #### 1 9123-9, 21075-2 ####[facility]ORATORYCLIA [id number] [place] [address] [place] Potassium [Moles/Vol] 3.9 mmol/L Normal 3.7-5.1 [facility] Comment on above: Order Comment: Speci men Type: BLOOD SPECIMENOrdering Facility: [facility] Address: [address] [place] [address] Performed By: #### 1 9123-9, 68775-1 ####[facility]ORATORYCLIA [id number] [address] [place] Sodium [Moles/Vol] 138 mmol/L Normal 136-144 [facility] Comment on above: Order Comment: Speci men Type: BLOOD SPECIMENOrdering Facility: [facility] Address: [address] [place] [address] Performed By: #### 1 9123-9, 13212-8 ####[facility]ORATORYCLIA [id number] [address] [place] Urea nitrogen [Mass/Vol] 24 mg/dL Normal 9-24 [facility] Comment on above: Order Comment: Speci men Type: BLOOD SPECIMENOrdering Facility: [facility] Address: [address] [place] [address] Performed By: #### 1 9123-9, 40061-9 ####[facility]ORATORYCLIA [id number] [address] [place] CASE MANAGEMon 06-24-2021 CASE MANAGEM Normal [facility] CASE MANAGEM Normal [facility] CASE MANAGEM Normal [facility] CBC panel Auto (Bld)on 06-24 Erythrocyte distribution width (RBC) [Ratio] 16.1 % High 11.5-15.0 [facility] Comment on above: Order Comment: Speci men Type: BLOOD SPECIMENOrdering Facility: [facility] Address: [address] [place] [address] Performed By: #### 5 8410-2 ####[facility]ORATORYCLIA [id number] [address] Hematocrit (Bld) [Volume fraction] 31.7 % Low 39.0-51.0 [facility] Comment on above: Order Comment: Speci men Type: BLOOD SPECIMENOrdering Facility: [facility] Address: [address] [place] [address] Performed By: #### 5 8410-2 ####[facility]ORATORYCLIA [id number] [address] OF [facility] Hemoglobin (Bld) [Mass/Vol] 9.7 g/dL Low 13.0-17.0 [facility] Comment on above: Order Comment: Speci men Type: BLOOD SPECIMENOrdering Facility: [facility] Address: [address] [place] [address] Performed By: #### 5 8410-2 ####[facility]ORATORYCLIA [id number] [address] STATES OF [facility] MCH (RBC) [Entitic mass] 28.0 pg Normal 26.0-34.0 [facility] Comment on above: Order Comment: Speci men Type: BLOOD SPECIMENOrdering Facility: [facility] Address: [address] [place] [address] Performed By: #### 5 8410-2 ####[facility]ORATORYCLIA [id number] [address] [place] MCHC (RBC) [Mass/Vol] 30.6 g/dL Normal 30.5-36.0 [facility] Comment on above: Order Comment: Speci men Type: BLOOD SPECIMENOrdering Facility: [facility] Address: [address] [place] [address] Performed By: #### 5 8410-2 ####[facility] LABORATORYCLIA [id number] [place] [address] [place] MCV (RBC) [Entitic vol] 91.4 fL Normal 80.0-100.0 [facility] Comment on above: Order Comment: Speci men Type: BLOOD SPECIMENOrdering Facility: [facility] Address: [address] [address] Performed By: #### 5 8410-2 ####[facility]ORATORYCLIA [id number] [address] [place] Nucleated RBC (Bld) [#/Vol] 10*3/uL Normal <0.01 [facility] Comment on above: Order Comment: Speci men Type: BLOOD SPECIMENOrdering Facility: [facility] Address: [address] [address] Performed By: #### 5 8410-2 ####[facility]ORATORYCLIA [id number] [address] [place] Platelet mean volume (Bld) [Entitic vol] 11.0 fL Normal 9.0-12.7 [facility] Comment on above: Order Comment: Speci men Type: BLOOD SPECIMENOrdering Facility: [facility] Address: [address] [place] [address] Performed By: #### 5 8410-2 ####[facility]ORATORYCLIA [id number] [address] [place] Platelets (Bld) [#/Vol] 358 10*3/uL Normal 150-400 [facility] Comment on above: Order Comment: Speci men Type: BLOOD SPECIMENOrdering Facility: [facility] Address: [address] Performed By: #### 5 8410-2 ####[facility]ORATORYCLIA [id number] [address] [place] RBC (Bld) [#/Vol] 3.47 10*6/uL Low 4.20-6.00 [facility] Comment on above: Order Comment: Speci men Type: BLOOD SPECIMENOrdering Facility: [facility] Address: [address] [address] Performed By: #### 5 8410-2 ####[facility]ORATORYCLIA [id number] [place] [address] [place] WBC (Bld) [#/Vol] 10.07 10*3/uL Normal 3.70-11.00 [facility] Comment on above: Order Comment: Speci men Type: BLOOD SPECIMENOrdering Facility: [facility] Address: [address] [place] [address] Performed By: #### 5 8410-2 ####[facility]ORATORYCLIA [id number] [address] [place] Magnesium SerPl-mCncon 06-24 Magnesium [Mass/Vol] 2.3 mg/dL Normal 1.7-2.3 [facility] Comment on above: Order Comment: Speci men Type: BLOOD SPECIMENOrdering Facility: [facility] Address: [address] [place] [address] Performed By: #### 1 9123-9, 05221-9 ####[facility]ORATORYCLIA [id number] [address] [place] ALLIED HEALTHon 06-23-2021 ALLIED HEALTH Normal [facility] Basic metabolic 2000 panelon 06-23-2021 Anion gap [Moles/Vol] 9 mmol/L Normal 9-18 [facility] Comment on above: Order Comment: Speci men Type: BLOOD SPECIMENOrdering Facility: [facility] Address: [address] [place] [address] Performed By: #### 1 9123-9, 60089-6 ####[facility]ORATORYCLIA [id number] [place] [address] [place] Calcium [Mass/Vol] 8.4 mg/dL Low 8.5-10.2 [facility] Comment on above: Order Comment: Speci men Type: BLOOD SPECIMENOrdering Facility: [facility] Address: [address] [place] [address] Performed By: #### 1 9123-9, 41508-1 ####[facility]ORATORYCLIA [id number] [place] [address] [place] Chloride [Moles/Vol] 104 mmol/L Normal 97-105 [facility] Comment on above: Order Comment: Speci men Type: BLOOD SPECIMENOrdering Facility: [facility] Address: [address] [place] [address] Performed By: #### 1 9123-9, 42912-4 ####[facility]ATORYCLIA [id number] [place] [address] [place] CO2 [Moles/Vol] 26 mmol/L Normal 22-30 [facility] Comment on above: Order Comment: Speci men Type: BLOOD SPECIMENOrdering Facility: [facility] Address: [address] [place] [address] Performed By: #### 1 9123-9, 66826-1 ####[facility]ITALCLIA [id number] [address] STATES OF [facility] Creatinine [Mass/Vol] 0.62 mg/dL Low 0.73-1.22 [facility] Comment on above: Order Comment: Speci men Type: BLOOD SPECIMENOrdering Facility: [facility] Address: [address] [place] [address] Performed By: #### 1 9123-9, 72361-3 ####[facility]ATORYCLIA [id number] [place] [address] [place] GFR/1.73 sq M.predicted MDRD (S/P/Bld) [Vol rate/Area] mL/min/{1.73_m2} Normal [facility] Comment on above: Order Comment: Speci men Type: BLOOD SPECIMENOrdering Facility: [facility] Address: [address] [place] [address] Result Comment: >60e GFR (Estimated GFR) Units [...] actual GFR. Performed By: #### 1 9123-9, 44909-1 ####[facility]ATORYCLIA [id number] [place] [address] [place] Glucose [Mass/Vol] 111 mg/dL High 74-99 [facility] Comment on above: Order Comment: Shira feldman Type: BLOOD SPECIMENOrdering Facility: [facility] Address: [address] [id number] Result Comment: The [place] Diabetes Association (ADA) provides guidance for cutoff [...] Standards of Medical Care in Diabetes 2016, [employer]. Diabetes Care. 2016.39(Suppl 1). Performed By: #### 1 9123-9, 50279-5 ####[facility]ORATORYCLIA [id number] [place] [address] [place] Potassium [Moles/Vol] 4.1 mmol/L Normal 3.7-5.1 [facility] Comment on above: Order Comment: Shira feldman Type: BLOOD SPECIMENOrdering Facility: [facility] Address: [address] [place] [address] Performed By: #### 1 9123-9, 60426-1 ####[facility]ORATORYCLIA [id number] [place] [address] [place] Sodium [Moles/Vol] 139 mmol/L Normal 136-144 [facility] Comment on above: Order Comment: Speci men Type: BLOOD SPECIMENOrdering Facility: [facility] Address: [address] [place] [address] Performed By: #### 1 9123-9, 07444-4 ####[facility]ATORYCLIA [id number] [address] STATES OF [facility] Urea nitrogen [Mass/Vol] 26 mg/dL High 9-24 [facility] Comment on above: Order Comment: Speci men Type: BLOOD SPECIMENOrdering Facility: [facility] Address: [address] [place] [address] Performed By: #### 1 9123-9, 08295-1 ####[facility]ATORYCLIA [id number] [address] OF [facility] CASE MANAGEMon 06-23-2021 CASE MANAGEM Normal [facility] CBC panel Auto (Bld)on 06-23 Erythrocyte distribution width (RBC) [Ratio] 16.0 % High 11.5-15.0 [facility] Comment on above: Order Comment: Speci men Type: BLOOD SPECIMENOrdering Facility: [facility] Address: [address] [place] [address] Performed By: #### 5 8410-2 ####[facility]ORYCLIA [id number] [address] STATES OF [facility] Hematocrit (Bld) [Volume fraction] 31.1 % Low 39.0-51.0 [facility] Comment on above: Order Comment: Speci men Type: BLOOD SPECIMENOrdering Facility: [facility] Address: [address] [place] [address] Performed By: #### 5 8410-2 ####[facility] LABORATORYCLIA [id number] [address] [place] Hemoglobin (Bld) [Mass/Vol] 9.5 g/dL Low 13.0-17.0 [facility] Comment on above: Order Comment: Speci men Type: BLOOD SPECIMENOrdering Facility: [facility] Address: [address] [place] [address] Performed By: #### 5 8410-2 ####[facility] LABORATORYCLIA [id number] [address] MCH (RBC) [Entitic mass] 28.1 pg Normal 26.0-34.0 [facility] Comment on above: Order Comment: Speci men Type: BLOOD SPECIMENOrdering Facility: [facility] Address: [address] [place] [address] Performed By: #### 5 8410-2 ####[facility] LABORATORYCLIA [id number] [address] MCHC (RBC) [Mass/Vol] 30.5 g/dL Normal 30.5-36.0 [facility] Comment on above: Order Comment: Speci men Type: BLOOD SPECIMENOrdering Facility: [facility] Address: [address] [place] [address] Performed By: #### 5 8410-2 ####[facility] LABORATORYCLIA [id number] [address] STATES [facility] MCV (RBC) [Entitic vol] 92.0 fL Normal 80.0-100.0 [facility] Comment on above: Order Comment: Speci men Type: BLOOD SPECIMENOrdering Facility: [facility] Address: [address] [place] [address] Performed By: #### 5 8410-2 ####[facility] LABORATORYCLIA [id number] [address] Nucleated RBC (Bld) [#/Vol] 10*3/uL Normal <0.01 [facility] Comment on above: Order Comment: Speci men Type: BLOOD SPECIMENOrdering Facility: [facility] Address: [address] [place] [address] Performed By: #### 5 8410-2 ####[facility] LABORATORYCLIA [id number] [place] [address] [place] Platelet mean volume (Bld) [Entitic vol] 11.0 fL Normal 9.0-12.7 [facility] Comment on above: Order Comment: Speci men Type: BLOOD SPECIMENOrdering Facility: [facility] Address: [address] [place] [address] Performed By: #### 5 8410-2 ####[facility] LABORATORYCLIA [id number] [place] [address] [place] Platelets (Bld) [#/Vol] 361 10*3/uL Normal 150-400 [facility] Comment on above: Order Comment: Speci men Type: BLOOD SPECIMENOrdering Facility: [facility] Address: [address] [place] [address] Performed By: #### 5 8410-2 ####[facility] LABORATORYCLIA [id number] [place] [address] [place] RBC (Bld) [#/Vol] 3.38 10*6/uL Low 4.20-6.00 [facility] Comment on above: Order Comment: Speci men Type: BLOOD SPECIMENOrdering Facility: [facility] Address: [address] [place] [address] Performed By: #### 5 8410-2 ####[facility] LABORATORYCLIA [id number] [place] [address] [place] WBC (Bld) [#/Vol] 9.02 10*3/uL Normal 3.70-11.00 [facility] Comment on above: Order Comment: Speci men Type: BLOOD SPECIMENOrdering Facility: [facility] Address: [address] [place] [address] Performed By: #### 5 8410-2 ####[facility] LABORATORYCLIA [id number] [address] [place] CONSULT PROGon 06-23-2021 CONSULT PROG Normal [facility] CONSULT PROG Normal [facility] Magnesium SerPl-mCncon 06-23 Magnesium [Mass/Vol] 2.4 mg/dL High 1.7-2.3 [facility] Comment on above: Order Comment: Speci men Type: BLOOD SPECIMENOrdering Facility: [facility] Address: [facility] [place] [address] Performed By: #### 1 9123-9, 96504-4 ####[facility]ORATORYCLIA [id number] [address] [place] THERAPY NTon 06-23-2021 THERAPY NT Normal [facility] Vancomycin random [Mass/Vol] on 06-23-2021 Vancomycin [Mass/Vol] 22.8 ug/mL High 10.0-20.0 [facility] Comment on above: Order Comment: Speci men Type: BLOOD SPECIMENOrdering Facility: [facility] Address: [address] [place] [address] Result Comment: Refe rence ranges and high/low indicator flags are provided as general guidelines only. The treating physician must determine appropriate target levels/dosing based on the specific clinical situation. Performed By: #### 4 091-5 ####[facility] LABORATORYCLIA [id number] [place] [address] [place] XR MOD BARIUM SWALLOW W SPEE Lore 06-23-2021 XR MOD BARIUM SWALLOW W SPEECH Normal [facility] Basic metabolic 2000 panelon 06-22-2021 Anion gap [Moles/Vol] 6 mmol/L Low 9-18 [facility] Comment on above: Order Comment: Speci men Type: BLOOD SPECIMENOrdering Facility: [facility] Address: [address] [place] [place] [address] Performed By: #### 2 4321-2, ####[facility]ORATORYCLIA [id number] [address] STATES OF [facility] Calcium [Mass/Vol] 8.5 mg/dL Normal 8.5-10.2 [facility] Comment on above: Order Comment: Speci men Type: BLOOD SPECIMENOrdering Facility: [facility] Address: [address] [place] [address] Performed By: #### 2 4321- ####[facility]ORATORYCLIA [id number] [place] [address] [place] Chloride [Moles/Vol] 105 mmol/L Normal 97-105 [facility] Comment on above: Order Comment: Speci men Type: BLOOD SPECIMENOrdering Facility: [facility] Address: [address] [place] [address] Performed By: #### 2 4322, ####[facility]ORATORYCLIA [id number] [place] [id number] [place] CO2 [Moles/Vol] 26 mmol/L Normal 22-30 [facility] Comment on above: Order Comment: Speci men Type: BLOOD SPECIMENOrdering Facility: [facility] Address: [address] [place] [address] Performed By: #### 2 43205-08, ####[facility]PITALCLIA [id number] [place] [address] [place] Creatinine [Mass/Vol] 0.56 mg/dL Low 0.73-1.22 [facility] Comment on above: Order Comment: Speci men Type: BLOOD SPECIMENOrdering Facility: [facility] Address: [address] [place] [address] Performed By: #### 2 43205-08, ####[facility] LABORATORYCLIA [id number] [place] [address] [place] GFR/1.73 sq M.predicted MDRD (S/P/Bld) [Vol rate/Area] mL/min/{1.73_m2} Normal [facility] Comment on above: Order Comment: Speci men Type: BLOOD SPECIMENOrdering Facility: [facility] Address: [address] [place] [address] Result Comment: >60e GFR (Estimated GFR) Units [...] actual GFR. Performed By: #### 2 43205-08, ####[facility]ORATORYCLIA [id number] [place] [address] [place] Glucose [Mass/Vol] 120 mg/dL High 74-99 [facility] Comment on above: Order Comment: Shira feldman Type: BLOOD SPECIMENOrdering Facility: [facility] Address: [address] [phone] Result Comment: The [place] [employer] (ADA) provides guidance for cutoff [...] Standards of Medical Care in Diabetes 2016, [employer]. Diabetes Care. 2016.39(Suppl 1). Performed By: #### 2 4320-06, ####[facility] LABORATORYCLIA [id number] [place] [id number] [place] Potassium [Moles/Vol] 4.0 mmol/L Normal 3.7-5.1 [facility] Comment on above: Order Comment: Shira feldman Type: BLOOD SPECIMENOrdering Facility: [facility] Address: [address] [place] [address] Performed By: #### 2 4320-06, ####[facility]ORATORYCLIA [id number] [place] [address] [place] Sodium [Moles/Vol] 137 mmol/L Normal 136-144 [facility] Comment on above: Order Comment: Speci men Type: BLOOD SPECIMENOrdering Facility: [facility] Address: [address] [place] [address] Performed By: #### 2 4321-2, ####[facility]ORATORYCLIA [id number] [address] [place] Urea nitrogen [Mass/Vol] 25 mg/dL High 9-24 [facility] Comment on above: Order Comment: Speci men Type: BLOOD SPECIMENOrdering Facility: [facility] Address: [address] [place] [address] Performed By: #### 2 4321-2, ####[facility]ORATORYCLIA [id number] [address] [place] CASE MANAGEMon 06-22-2021 CASE MANAGEM Normal [facility] CBC panel Auto (Bld)on 06-22 Erythrocyte distribution width (RBC) [Ratio] 16.0 % High 11.5-15.0 [facility] Comment on above: Order Comment: Speci men Type: BLOOD SPECIMENOrdering Facility: [facility] Address: [address] [place] [address] Performed By: #### 5 8410-2 ####[facility]ORATORYCLIA [id number] [address] [place] Hematocrit (Bld) [Volume fraction] 30.5 % Low 39.0-51.0 [facility] Comment on above: Order Comment: Speci men Type: BLOOD SPECIMENOrdering Facility: [facility] Address: [address] [place] [address] Performed By: #### 5 8410-2 ####[facility]ATORYCLIA [id number] [address] [place] Hemoglobin (Bld) [Mass/Vol] 9.3 g/dL Low 13.0-17.0 [facility] Comment on above: Order Comment: Speci men Type: BLOOD SPECIMENOrdering Facility: [facility] Address: [address] [place] [address] Performed By: #### 5 8410-2 ####[facility]ORATORYCLIA [id number] [address] MCH (RBC) [Entitic mass] 28.4 pg Normal 26.0-34.0 [facility] Comment on above: Order Comment: Speci men Type: BLOOD SPECIMENOrdering Facility: [facility] Address: [address] [place] [address] Performed By: #### 5 8410-2 ####[facility]ORATORYCLIA [id number] [address] MCHC (RBC) [Mass/Vol] 30.5 g/dL Normal 30.5-36.0 [facility] Comment on above: Order Comment: Speci men Type: BLOOD SPECIMENOrdering Facility: [facility] Address: [address] [place] [address] Performed By: #### 5 8410-2 ####[facility]ORATORYCLIA [id number] [address] STATES OF [facility] MCV (RBC) [Entitic vol] 93.3 fL Normal 80.0-100.0 [facility] Comment on above: Order Comment: Speci men Type: BLOOD SPECIMENOrdering Facility: [facility] Address: [address] [place] [address] Performed By: #### 5 8410-2 ####[facility]ORATORYCLIA [id number] [address] Nucleated RBC (Bld) [#/Vol] 10*3/uL Normal <0.01 [facility] Comment on above: Order Comment: Speci men Type: BLOOD SPECIMENOrdering Facility: [facility] Address: [address] [place] [address] Performed By: #### 5 8410-2 ####[facility]ORATORYCLIA [id number] [address] Platelet mean volume (Bld) [Entitic vol] 11.5 fL Normal 9.0-12.7 [facility] Comment on above: Order Comment: Speci men Type: BLOOD SPECIMENOrdering Facility: [facility] Address: [address] [place] [address] Performed By: #### 5 8410-2 ####[facility]ORATORYCLIA [id number] [address] [place] Platelets (Bld) [#/Vol] 346 10*3/uL Normal 150-400 [facility] Comment on above: Order Comment: Speci men Type: BLOOD SPECIMENOrdering Facility: [facility] Address: [address] [place] [address] Performed By: #### 5 8410-2 ####[facility]ORATORYCLIA [id number] [address] [place] RBC (Bld) [#/Vol] 3.27 10*6/uL Low 4.20-6.00 [facility] Comment on above: Order Comment: Speci men Type: BLOOD SPECIMENOrdering Facility: [facility] Address: [address] [place] [address] Performed By: #### 5 8410-2 ####[facility]ORATORYCLIA [id number] [address] STATES OF [facility] WBC (Bld) [#/Vol] 9.44 10*3/uL Normal 3.70-11.00 [facility] Comment on above: Order Comment: Speci men Type: BLOOD SPECIMENOrdering Facility: [facility] Address: [address] [place] [address] Performed By: #### 5 8410-2 ####[facility]ORATORYCLIA [id number] [address] [place] HEMOGLOBIN (HGB)on 2 Hemoglobin (Bld) [Mass/Vol] 9.7 g/dL Low 13.0-17.0 [facility] Comment on above: Order Comment: Speci men Type: BLOOD SPECIMENOrdering Facility: [facility] Address: [address] [place] [address] Performed By: #### H GB ####[facility]ORATORYCLIA [id number] [place] [address] [place] Magnesium SerPl-mCncon 06-22 Magnesium [Mass/Vol] 2.4 mg/dL High 1.7-2.3 [facility] Comment on above: Order Comment: Speci men Type: BLOOD SPECIMENOrdering Facility: [facility] Address: [address] [place] [address] Performed By: #### 2 4321-2, 87953-1 ####[facility]ORATORYCLIA [id number] [address] OF [facility] THERAPY NTon 06-22-2021 THERAPY NT Normal [facility] THERAPY NT Normal [facility] aPTT PPPon 06-22-2021 aPTT Coag (PPP) [Time] 62.3 s High 23.0-32.4 [facility] Comment on above: Order Comment: Speci men Type: BLOOD SPECIMENOrdering Facility: [facility] Address: [address] [place] [address] Performed By: #### 1 4979-9 ####[facility]ORATORYCLIA [id number] [address] [place] ALLIED HEALTHon 06-21-2021 ALLIED HEALTH Normal [facility] Basic metabolic 2000 panelon 06-21-2021 Anion gap [Moles/Vol] 8 mmol/L Low 9-18 [facility] Comment on above: Order Comment: Speci men Type: BLOOD SPECIMENOrdering Facility: [facility] Address: [address] [place] [address] Performed By: #### 2 4321-2, 44994-4 ####[facility] LABORATORYCLIA [id number] [place] [address] [place] Calcium [Mass/Vol] 8.2 mg/dL Low 8.5-10.2 [facility] Comment on above: Order Comment: Speci men Type: BLOOD SPECIMENOrdering Facility: [facility] Address: [address] [place] [address] Performed By: #### 2 4320-2, ####[facility]ORATORYCLIA [id number] [address] [place] Chloride [Moles/Vol] 108 mmol/L High 97-105 [facility] Comment on above: Order Comment: Speci men Type: BLOOD SPECIMENOrdering Facility: [facility] Address: [address] [place] [address] Performed By: #### 2 4322, ####[facility]ORATORYCLIA [id number] [place] [address] [place] CO2 [Moles/Vol] 24 mmol/L Normal 22-30 [facility] Comment on above: Order Comment: Speci men Type: BLOOD SPECIMENOrdering Facility: [facility] Address: [address] [place] [address] Performed By: #### 2 2, ####[facility]ORATORYCLIA [id number] [place] [address] [place] Creatinine [Mass/Vol] 0.61 mg/dL Low 0.73-1.22 [facility] Comment on above: Order Comment: Speci men Type: BLOOD SPECIMENOrdering Facility: [facility] Address: [address] [place] [address] Performed By: #### 2 2, ####[facility]ORATORYCLIA [id number] [place] [address] [place] GFR/1.73 sq M.predicted MDRD (S/P/Bld) [Vol rate/Area] mL/min/{1.73_m2} Normal [facility] Comment on above: Order Comment: Speci men Type: BLOOD SPECIMENOrdering Facility: [facility] Address: [address] [place] [address] Result Comment: >60e GFR (Estimated GFR) Units [...] reflect actual GFR. Performed By: #### 2 4320-, ####[facility]ORATORYCLIA [id number] [place] [address] [place] Glucose [Mass/Vol] 211 mg/dL High 74-99 [facility] Comment on above: Order Comment: Shira feldman Type: BLOOD SPECIMENOrdering Facility: [facility] Address: [address] [place], [place] [phone] Result Comment: The [place] Diabetes Association (ADA) provides guidance for cutoff [...] Standards of Medical Care in Diabetes 2016, [place] [employer]. Diabetes Care. 2016.39(Suppl 1). Performed By: #### 2 4320-06, ####[facility]ATORYCLIA [id number] [place] [address] [place] Potassium [Moles/Vol] 4.3 mmol/L Normal 3.7-5.1 [facility] Comment on above: Order Comment: Shira feldman Type: BLOOD SPECIMENOrdering Facility: [facility] Address: [address] [place], [place] [phone] Performed By: #### 2 4320-06, ####[facility]ORATORYCLIA [id number] [address] [place] Sodium [Moles/Vol] 140 mmol/L Normal 136-144 [facility] Comment on above: Order Comment: Speci men Type: BLOOD SPECIMENOrdering Facility: [facility] Address: [address] [place] [address] Performed By: #### 2 4321-2, 74015-6 ####[facility]ATORYCLIA [id number] [address] [place] Urea nitrogen [Mass/Vol] 26 mg/dL High 9-24 [facility] Comment on above: Order Comment: Speci men Type: BLOOD SPECIMENOrdering Facility: [facility] Address: [address] [place] [address] Performed By: #### 2 4321-2, 08618-2 ####[facility]ORATORYCLIA [id number] [address] STATES OF [facility] CBC panel Auto (Bld)on 06-21 Erythrocyte distribution width (RBC) [Ratio] 16.1 % High 11.5-15.0 [facility] Comment on above: Order Comment: Speci men Type: BLOOD SPECIMENOrdering Facility: [facility] Address: [address] [place] [address] Performed By: #### 5 8410-2 ####[facility]ORATORYCLIA [id number] [address] STATES OF [facility] Hematocrit (Bld) [Volume fraction] 29.7 % Low 39.0-51.0 [facility] Comment on above: Order Comment: Speci men Type: BLOOD SPECIMENOrdering Facility: [facility] Address: [address] [place] [address] Performed By: #### 5 8410-2 ####[facility]ATORYCLIA [id number] [address] [place] Hemoglobin (Bld) [Mass/Vol] 9.2 g/dL Low 13.0-17.0 [facility] Comment on above: Order Comment: Speci men Type: BLOOD SPECIMENOrdering Facility: [facility] Address: [address] [place] [address] Performed By: #### 5 8410-2 ####[facility]ORATORYCLIA [id number] [address] MCH (RBC) [Entitic mass] 28.8 pg Normal 26.0-34.0 [facility] Comment on above: Order Comment: Speci men Type: BLOOD SPECIMENOrdering Facility: [facility] Address: [address] [place] [address] Performed By: #### 5 8410-2 ####[facility]ATORYCLIA [id number] [address] MCHC (RBC) [Mass/Vol] 31.0 g/dL Normal 30.5-36.0 [facility] Comment on above: Order Comment: Speci men Type: BLOOD SPECIMENOrdering Facility: [facility] Address: [address] [place] [address] Performed By: #### 5 8410-2 ####[facility]ATORYCLIA [id number] [address] MCV (RBC) [Entitic vol] 93.1 fL Normal 80.0-100.0 [facility] Comment on above: Order Comment: Speci men Type: BLOOD SPECIMENOrdering Facility: [facility] Address: [address] [place] [address] Performed By: #### 5 8410-2 ####[facility]ATORYCLIA [id number] [address] Nucleated RBC (Bld) [#/Vol] 10*3/uL Normal <0.01 [facility] Comment on above: Order Comment: Speci men Type: BLOOD SPECIMENOrdering Facility: [facility] Address: [address] [place] [address] Performed By: #### 5 8410-2 ####[facility]ATORYCLIA [id number] [address] [place] Platelet mean volume (Bld) [Entitic vol] 11.6 fL Normal 9.0-12.7 [facility] Comment on above: Order Comment: Speci men Type: BLOOD SPECIMENOrdering Facility: [facility] Address: [address] [place] [address] Performed By: #### 5 8410-2 ####[facility]ATORYCLIA [id number] [address] [place] Platelets (Bld) [#/Vol] 347 10*3/uL Normal 150-400 [facility] Comment on above: Order Comment: Speci men Type: BLOOD SPECIMENOrdering Facility: [facility] Address: [address] [place] [address] Performed By: #### 5 8410-2 ####[facility]ORATORYCLIA [id number] [place] [address] [place] RBC (Bld) [#/Vol] 3.19 10*6/uL Low 4.20-6.00 [facility] Comment on above: Order Comment: Speci men Type: BLOOD SPECIMENOrdering Facility: [facility] Address: [address] [place] [address] Performed By: #### 5 8410-2 ####[facility]ORATORYCLIA [id number] [place] [address] [place] WBC (Bld) [#/Vol] 10.29 10*3/uL Normal 3.70-11.00 [facility] Comment on above: Order Comment: Speci men Type: BLOOD SPECIMENOrdering Facility: [facility] Address: [address] [place] [address] Performed By: #### 5 8410-2 ####[facility]ORATORYCLIA [id number] [address] [place] CONSULT PROGon 06-21-2021 CONSULT PROG Normal [facility] CONSULT PROG Normal [facility] Magnesium SerPl-mCncon 06-21 Magnesium [Mass/Vol] 2.5 mg/dL High 1.7-2.3 [facility] Comment on above: Order Comment: Speci men Type: BLOOD SPECIMENOrdering Facility: [facility] Address: [address] [place] [address] Performed By: #### 2 4321-2, 31432-9 ####[facility]ORATORYCLIA [id number] [address] NUTRITIONon 06-21-2021 NUTRITION Normal [facility] XR CHEST 1V FRONTALon 2021 XR CHEST 1V FRONTAL Normal [facility] aPTT PPPon 06-21-2021 aPTT Coag (PPP) [Time] 68.5 s High 23.0-32.4 [facility] Comment on above: Order Comment: Speci men Type: BLOOD SPECIMENOrdering Facility: [facility] Address: [address] [place] [address] Performed By: #### 1 4979-9 ####[facility]ATORYCLIA [id number] [address] aPTT Coag (PPP) [Time] 57.8 s High 23.0-32.4 [facility] Comment on above: Order Comment: Speci men Type: BLOOD SPECIMENOrdering Facility: [facility] Address: [address] [place] [address] Performed By: #### 1 4979-9 ####[facility]ORATORYCLIA [id number] [address] OF [facility] Basic metabolic 2000 panelon 06-20-2021 Anion gap [Moles/Vol] 9 mmol/L Normal 9-18 [facility] Comment on above: Order Comment: Speci men Type: BLOOD SPECIMENOrdering Facility: [facility] Address: [address] [place] [address] Performed By: #### 2 4321-2, 27992-9 ####[facility]ATORYCLIA [id number] [address] Calcium [Mass/Vol] 8.3 mg/dL Low 8.5-10.2 [facility] Comment on above: Order Comment: Speci men Type: BLOOD SPECIMENOrdering Facility: [facility] Address: [address] [place] [address] Performed By: #### 2 432-2, ####[facility] LABORATORYCLIA [id number] [place] [address] [place] Chloride [Moles/Vol] 111 mmol/L High 97-105 [facility] Comment on above: Order Comment: Speci men Type: BLOOD SPECIMENOrdering Facility: [facility] Address: [address] [place] [address] Performed By: #### 2 4320-2, ####[facility] LABORATORYCLIA [id number] [address] [place] CO2 [Moles/Vol] 24 mmol/L Normal 22-30 [facility] Comment on above: Order Comment: Speci men Type: BLOOD SPECIMENOrdering Facility: [facility] Address: [address] [place] [address] Performed By: #### 2 4320-2, ####[facility] LABORATORYCLIA [id number] [place] [address] [place] Creatinine [Mass/Vol] 0.64 mg/dL Low 0.73-1.22 [facility] Comment on above: Order Comment: Speci men Type: BLOOD SPECIMENOrdering Facility: [facility] Address: [address] [place] [address] Performed By: #### 2 4321-2, ####[facility] LABORATORYCLIA [id number] [place] [address] [place] [place] GFR/1.73 sq M.predicted MDRD (S/P/Bld) [Vol rate/Area] mL/min/{1.73_m2} Normal [facility] Comment on above: Order Comment: Speci men Type: BLOOD SPECIMENOrdering Facility: [facility] Address: [address] [place], [place] [address] Result Comment: >60e GFR (Estimated GFR) Units [...] actual GFR. Performed By: #### 2 4321-2, 56483-6 ####[facility]ITALCLIA [id number] [place] [address] [place] Glucose [Mass/Vol] 114 mg/dL High 74-99 [facility] Comment on above: Order Comment: Shira feldman Type: BLOOD SPECIMENOrdering Facility: [facility] Address: [address] [place] [address] Result Comment: The [place] Diabetes Association (ADA) provides guidance for cutoff [...] Standards of Medical Care in Diabetes 2016, [employer] Diabetes Association. Diabetes Care. 2016.39(Suppl 1). Performed By: #### 2 4321-2, 82582-7 ####[facility] LABORATORYCLIA [id number] [place] [id number] [place] Potassium [Moles/Vol] 4.1 mmol/L Normal 3.7-5.1 [facility] Comment on above: Order Comment: Shira feldman Type: BLOOD SPECIMENOrdering Facility: [facility] Address: [address] [place] [address] Performed By: #### 2 4321-2, 33170-2 ####[facility]ATORYCLIA [id number] [address] Sodium [Moles/Vol] 144 mmol/L Normal 136-144 [facility] Comment on above: Order Comment: Speci men Type: BLOOD SPECIMENOrdering Facility: [facility] Address: [address] [place] [address] Performed By: #### 2 4321-2, ####[facility]ORATORYCLIA [id number] [address] STATES [facility] Urea nitrogen [Mass/Vol] 27 mg/dL High 9-24 [facility] Comment on above: Order Comment: Speci men Type: BLOOD SPECIMENOrdering Facility: [facility] Address: [address] [place] [address] Performed By: #### 2 2, ####[facility]ATORYCLIA [id number] [address] STATES [facility] CASE MANAGEMon 06-20-2021 CASE MANAGEM Normal [facility] CBC panel Auto (Bld)on 06-20 Erythrocyte distribution width (RBC) [Ratio] 15.9 % High 11.5-15.0 [facility] Comment on above: Order Comment: Speci men Type: BLOOD SPECIMENOrdering Facility: [facility] Address: [address] [place] [address] Performed By: #### 5 8410-2 ####[facility]ORATORYCLIA [id number] [address] Hematocrit (Bld) [Volume fraction] 31.0 % Low 39.0-51.0 [facility] Comment on above: Order Comment: Speci men Type: BLOOD SPECIMENOrdering Facility: [facility] Address: [address] [place] [address] Performed By: #### 5 8410-2 ####[facility]ORATORYCLIA [id number] [address] STATES OF [facility] Hemoglobin (Bld) [Mass/Vol] 9.2 g/dL Low 13.0-17.0 [facility] Comment on above: Order Comment: Speci men Type: BLOOD SPECIMENOrdering Facility: [facility] Address: [address] [place] [address] Performed By: #### 5 8410-2 ####[facility]ATORYCLIA [id number] [address] MCH (RBC) [Entitic mass] 27.4 pg Normal 26.0-34.0 [facility] Comment on above: Order Comment: Speci men Type: BLOOD SPECIMENOrdering Facility: [facility] Address: [address] [place] [address] Performed By: #### 5 8410-2 ####[facility]ATORYCLIA [id number] [address] MCHC (RBC) [Mass/Vol] 29.7 g/dL Low 30.5-36.0 [facility] Comment on above: Order Comment: Speci men Type: BLOOD SPECIMENOrdering Facility: [facility] Address: [address] [place] [address] Performed By: #### 5 8410-2 ####[facility]ATORYCLIA [id number] [address] MCV (RBC) [Entitic vol] 92.3 fL Normal 80.0-100.0 [facility] Comment on above: Order Comment: Speci men Type: BLOOD SPECIMENOrdering Facility: [facility] Address: [address] [place] [address] Performed By: #### 5 8410-2 ####[facility]ORATORYCLIA [id number] [address] OF [facility] Nucleated RBC (Bld) [#/Vol] 10*3/uL Normal <0.01 [facility] Comment on above: Order Comment: Speci men Type: BLOOD SPECIMENOrdering Facility: [facility] Address: [address] [place] [address] Performed By: #### 5 8410-2 ####[facility]ATORYCLIA [id number] [address] [place] Platelet mean volume (Bld) [Entitic vol] 11.5 fL Normal 9.0-12.7 [facility] Comment on above: Order Comment: Speci men Type: BLOOD SPECIMENOrdering Facility: [facility] Address: [address] [place] [address] Performed By: #### 5 8410-2 ####[facility]ORATORYCLIA [id number] [address] STATES [place] Platelets (Bld) [#/Vol] 343 10*3/uL Normal 150-400 [facility] Comment on above: Order Comment: Speci men Type: BLOOD SPECIMENOrdering Facility: [facility] Address: [address] [place] [address] Performed By: #### 5 8410-2 ####[facility] LABORATORYCLIA [id number] [place] [address] [place] RBC (Bld) [#/Vol] 3.36 10*6/uL Low 4.20-6.00 [facility] Comment on above: Order Comment: Speci men Type: BLOOD SPECIMENOrdering Facility: [facility] Address: [address] [place], [place] [address] Performed By: #### 5 8410-2 ####[facility]ORATORYCLIA [id number] [place] [address] [place] WBC (Bld) [#/Vol] 10.71 10*3/uL Normal 3.70-11.00 [facility] Comment on above: Order Comment: Speci men Type: BLOOD SPECIMENOrdering Facility: [facility] Address: [address] [place] [address] Performed By: #### 5 8410-2 ####[facility]ATORYCLIA [id number] [address] CONSULT PROGon 06-20-2021 CONSULT PROG Normal [facility] HEMOGLOBIN (HGB)on 2 Hemoglobin (Bld) [Mass/Vol] 9.7 g/dL Low 13.0-17.0 [facility] Comment on above: Order Comment: Speci men Type: BLOOD SPECIMENOrdering Facility: [facility] Address: [address] [place] [address] Performed By: #### H GB ####[facility]ORATORYCLIA [id number] [address] Magnesium SerPl-mCncon 06-20 Magnesium [Mass/Vol] 2.5 mg/dL High 1.7-2.3 [facility] Comment on above: Order Comment: Speci men Type: BLOOD SPECIMENOrdering Facility: [facility] Address: [address] [place] [address] Performed By: #### 2 4321-2, 32795-7 ####[facility]ITALCLIA [id number] [address] STATES OF [facility] NURSING PROGon 06-20-2021 NURSING PROG Normal [facility] THERAPY NTon 06-20-2021 THERAPY NT Normal [facility] aPTT PPPon 06-20-2021 aPTT Coag (PPP) [Time] 93.5 s High 23.0-32.4 [facility] Comment on above: Order Comment: Speci men Type: BLOOD SPECIMENOrdering Facility: [facility] Address: [address] [place] [address] Performed By: #### 1 4979-9 ####[facility]ORATORYCLIA [id number] [address] aPTT Coag (PPP) [Time] 47.1 s High 23.0-32.4 [facility] Comment on above: Order Comment: Speci men Type: BLOOD SPECIMENOrdering Facility: [facility] Address: [address] [place] [address] Performed By: #### 1 4979-9 ####[facility]ATORYCLIA [id number] [place] [address] [place] Basic metabolic 2000 panelon 06-19-2021 Anion gap [Moles/Vol] 7 mmol/L Low 9-18 [facility] Comment on above: Order Comment: Speci men Type: BLOOD SPECIMENOrdering Facility: [facility] Address: [address] [place] [address] Performed By: #### 2 4321-2 ####[facility]ORYCLIA [id number] [place] [address] [place] Calcium [Mass/Vol] 8.1 mg/dL Low 8.5-10.2 [facility] Comment on above: Order Comment: Speci men Type: BLOOD SPECIMENOrdering Facility: [facility] Address: [address] [place] [address] Performed By: #### 2 4321-2 ####[facility]ORATORYCLIA [id number] [place] [address] [place] Chloride [Moles/Vol] 111 mmol/L High 97-105 [facility] Comment on above: Order Comment: Speci men Type: BLOOD SPECIMENOrdering Facility: [facility] Address: [address] [place] [address] Performed By: #### 2 4321-2 ####[facility]ATORYCLIA [id number] [place] [address] [place] CO2 [Moles/Vol] 24 mmol/L Normal 22-30 [facility] Comment on above: Order Comment: Speci men Type: BLOOD SPECIMENOrdering Facility: [facility] Address: [address] [place] [address] Performed By: #### 2 4321-2 ####[facility]ATORYCLIA [id number] [place] [address] [place] Creatinine [Mass/Vol] 0.71 mg/dL Low 0.73-1.22 [facility] Comment on above: Order Comment: Johncara feldman Type: BLOOD SPECIMENOrdering Facility: [facility] Address: [address] [place] [phone] Performed By: #### 2 4321-2 ####[facility]ATORYCLIA [id number] [place] [address] [place] GFR/1.73 sq M.predicted MDRD (S/P/Bld) [Vol rate/Area] mL/min/{1.73_m2} Normal [facility] Comment on above: Order Comment: Johncara feldman Type: BLOOD SPECIMENOrdering Facility: [facility] Address: [address] [place] [phone] Result Comment: >60e GFR (Estimated GFR) Units [...] actual GFR. Performed By: #### 2 4321-2 ####[facility]ORATORYCLIA [id number] [place] [address] [place] Glucose [Mass/Vol] 110 mg/dL High 74-99 [facility] Comment on above: Order Comment: Shira feldman Type: BLOOD SPECIMENOrdering Facility: [facility] Address: [address] [place] [address] Result Comment: The [place] Diabetes Association (ADA) provides guidance for cutoff [...] Standards of Medical Care in Diabetes 2016, [place] Diabetes Association. Diabetes Care. 2016.39(Suppl 1). Performed By: #### 2 4321-2 ####[facility]ATORYCLIA [id number] [address] STATES OF [facility] Potassium [Moles/Vol] 3.7 mmol/L Normal 3.7-5.1 [facility] Comment on above: Order Comment: Speci men Type: BLOOD SPECIMENOrdering Facility: [facility] Address: [address] [place] [address] Performed By: #### 2 4321-2 ####[facility]ATORYCLIA [id number] [address] Sodium [Moles/Vol] 142 mmol/L Normal 136-144 [facility] Comment on above: Order Comment: Speci men Type: BLOOD SPECIMENOrdering Facility: [facility] Address: [address] [place] [address] Performed By: #### 2 4321-2 ####[facility]ORATORYCLIA [id number] [address] STATES [facility] Urea nitrogen [Mass/Vol] 26 mg/dL High 9-24 [facility] Comment on above: Order Comment: Speci men Type: BLOOD SPECIMENOrdering Facility: [facility] Address: [address] [place] [address] Performed By: #### 2 4321-2 ####[facility]ORATORYCLIA [id number] [address] [place] CBC panel Auto (Bld)on 06-19 Erythrocyte distribution width (RBC) [Ratio] 15.7 % High 11.5-15.0 [facility] Comment on above: Order Comment: Speci men Type: BLOOD SPECIMENOrdering Facility: [facility] Address: [address] [place] [address] Performed By: #### 5 8410-2 ####[facility]ATORYCLIA [id number] [address] Hematocrit (Bld) [Volume fraction] 30.9 % Low 39.0-51.0 [facility] Comment on above: Order Comment: Speci men Type: BLOOD SPECIMENOrdering Facility: [facility] Address: [address] [place] [address] Performed By: #### 5 8410-2 ####[facility]ORYCLIA [id number] [address] Hemoglobin (Bld) [Mass/Vol] 9.5 g/dL Low 13.0-17.0 [facility] Comment on above: Order Comment: Speci men Type: BLOOD SPECIMENOrdering Facility: [facility] Address: [address] [place] [address] Performed By: #### 5 8410-2 ####[facility]ATORYCLIA [id number] [address] MCH (RBC) [Entitic mass] 28.4 pg Normal 26.0-34.0 [facility] Comment on above: Order Comment: Speci men Type: BLOOD SPECIMENOrdering Facility: [facility] Address: [address] [place] [address] Performed By: #### 5 8410-2 ####[facility]ATORYCLIA [id number] [address] MCHC (RBC) [Mass/Vol] 30.7 g/dL Normal 30.5-36.0 [facility] Comment on above: Order Comment: Speci men Type: BLOOD SPECIMENOrdering Facility: [facility] Address: [address] [place] [address] Performed By: #### 5 8410-2 ####[facility]ATORYCLIA [id number] [address] MCV (RBC) [Entitic vol] 92.2 fL Normal 80.0-100.0 [facility] Comment on above: Order Comment: Speci men Type: BLOOD SPECIMENOrdering Facility: [facility] Address: [address] Performed By: #### 5 8410-2 ####[facility]ATORYCLIA [id number] [address] Nucleated RBC (Bld) [#/Vol] 10*3/uL Normal <0.01 [facility] Comment on above: Order Comment: Speci men Type: BLOOD SPECIMENOrdering Facility: [facility] Address: [facility] [place] [address] Performed By: #### 5 8410-2 ####[facility]ORATORYCLIA [id number] [address] STATES [place] Platelet mean volume (Bld) [Entitic vol] 11.7 fL Normal 9.0-12.7 [facility] Comment on above: Order Comment: Speci men Type: BLOOD SPECIMENOrdering Facility: [facility] Address: [address] [place] [address] Performed By: #### 5 8410-2 ####[facility]ORATORYCLIA [id number] [address] [place] Platelets (Bld) [#/Vol] 323 10*3/uL Normal 150-400 [facility] Comment on above: Order Comment: Speci men Type: BLOOD SPECIMENOrdering Facility: [facility] Address: [address] Performed By: #### 5 8410-2 ####[facility]ATORYCLIA [id number] [address] [place] RBC (Bld) [#/Vol] 3.35 10*6/uL Low 4.20-6.00 [facility] Comment on above: Order Comment: Speci men Type: BLOOD SPECIMENOrdering Facility: [facility] Address: [address] [place] [address] Performed By: #### 5 8410-2 ####[facility]ATORYCLIA [id number] [address] [place] WBC (Bld) [#/Vol] 9.53 10*3/uL Normal 3.70-11.00 [facility] Comment on above: Order Comment: Speci men Type: BLOOD SPECIMENOrdering Facility: [facility] Address: [address] [place] [address] Performed By: #### 5 8410-2 ####[facility]ORATORYCLIA [id number] [address] [place] HEMOGLOBIN (HGB)on Hemoglobin (Bld) [Mass/Vol] 9.7 g/dL Low 13.0-17.0 [facility] Comment on above: Order Comment: Speci men Type: BLOOD SPECIMENOrdering Facility: [facility] Address: [address] [place] [address] Performed By: #### H GB ####[facility] LABORATORYCLIA [id number] [address] [place] Magnesium SerPl-mCncon 06-19 Magnesium [Mass/Vol] 2.5 mg/dL High 1.7-2.3 [facility] Comment on above: Order Comment: Speci men Type: BLOOD SPECIMENOrdering Facility: [facility] Address: [address] [place] [address] Performed By: #### 1 9123-9, 2777-1 ####[facility]ATORYCLIA [id number] [address] [place] NURSING PROGon 06-19-2021 NURSING PROG Normal [facility] Phosphate SerPl-mCncon 06-19 Phosphate [Mass/Vol] 2.6 mg/dL Low 2.7-4.8 [facility] Comment on above: Order Comment: Speci men Type: BLOOD SPECIMENOrdering Facility: [facility] Address: [address] [place] [address] Performed By: #### 1 9123-9, 2777-1 ####[facility]ATORYCLIA [id number] [address] [place] aPTT PPPon 06-19-2021 aPTT Coag (PPP) [Time] 61.9 s High 23.0-32.4 [facility] Comment on above: Order Comment: Speci men Type: BLOOD SPECIMENOrdering Facility: [facility] Address: [address] [place] [address] Performed By: #### 1 4979-9 ####[facility]ORATORYCLIA [id number] [address] [place] aPTT Coag (PPP) [Time] 68.6 s High 23.0-32.4 [facility] Comment on above: Order Comment: Speci men Type: BLOOD SPECIMENOrdering Facility: [facility] Address: [address] [place] [address] Performed By: #### 1 4979-9 ####[facility]ORATORYCLIA [id number] [address] aPTT Coag (PPP) [Time] 83.2 s High 23.0-32.4 [facility] Comment on above: Order Comment: Speci men Type: BLOOD SPECIMENOrdering Facility: [facility] Address: [address] [place] [address] Performed By: #### 1 4979-9 ####[facility]ORATORYCLIA [id number] [address] [place] Basic metabolic 2000 panelon 06-18-2021 Anion gap [Moles/Vol] 7 mmol/L Low 9-18 [facility] Comment on above: Order Comment: Speci men Type: BLOOD SPECIMENOrdering Facility: [facility] Address: [address] [place] [address] Performed By: #### 2 4321-2, 64586-8, 2777-1 ####[facility]ORATORYCLIA [id number] [address] [place] Calcium [Mass/Vol] 8.2 mg/dL Low 8.5-10.2 [facility] Comment on above: Order Comment: Speci men Type: BLOOD SPECIMENOrdering Facility: [facility] Address: [address] [place] [address] Performed By: #### 2 4321-2, , 2776-05 ####[facility] LABORATORYCLIA [id number] [place] [address] [place] Chloride [Moles/Vol] 115 mmol/L High 97-105 [facility] Comment on above: Order Comment: Speci men Type: BLOOD SPECIMENOrdering Facility: [facility] Address: [address] [place] [address] Performed By: #### 2 4321-2, , 2776-05 ####[facility]ITALCLIA [id number] [place] [address] [place] CO2 [Moles/Vol] 23 mmol/L Normal 22-30 [facility] Comment on above: Order Comment: Speci men Type: BLOOD SPECIMENOrdering Facility: [facility] Address: [address] [place] [address] Performed By: #### 2 4321-2, , 2776-05 ####[facility] LABORATORYCLIA [id number] [address] [place] Creatinine [Mass/Vol] 0.70 mg/dL Low 0.73-1.22 [facility] Comment on above: Order Comment: Speci men Type: BLOOD SPECIMENOrdering Facility: [facility] Address: [address] [place] [address] Performed By: #### 2 4321-2, , 2776-05 ####[facility] LABORATORYCLIA [id number] [place] [address] [place] GFR/1.73 sq M.predicted MDRD (S/P/Bld) [Vol rate/Area] mL/min/{1.73_m2} Normal [facility] Comment on above: Order Comment: Speci men Type: BLOOD SPECIMENOrdering Facility: [facility] Address: [address] [phone] Result Comment: >60e GFR (Estimated GFR) Units [...] actual GFR. Performed By: #### 2 4321-2, 06511-0, 2777-1 ####[facility]ITALCLIA [id number] [place] [address] [place] Glucose [Mass/Vol] 105 mg/dL High 74-99 [facility] Comment on above: Order Comment: Shira feldman Type: BLOOD SPECIMENOrdering Facility: [facility] Address: [address] [place], [place] [address] Result Comment: The [place] Diabetes Association (ADA) provides guidance for cutoff [...] Standards of Medical Care in Diabetes 2016, [place] Diabetes [employer]. Diabetes Care. 2016.39(Suppl 1). Performed By: #### 2 4321-2, 38182-6, 2777- ####[facility] LABORATORYCLIA [id number] [place] [id number] [place] Potassium [Moles/Vol] 4.1 mmol/L Normal 3.7-5.1 [facility] Comment on above: Order Comment: Shira feldman Type: BLOOD SPECIMENOrdering Facility: [facility] Address: [address] [place], [place] [address] Performed By: #### 2 4321-2, , 2776-05 ####[facility] LABORATORYCLIA [id number] [address] [place] Sodium [Moles/Vol] 145 mmol/L High 136-144 [facility] Comment on above: Order Comment: Speci men Type: BLOOD SPECIMENOrdering Facility: [facility] Address: [address] [place] [address] Performed By: #### 2 4321-2, , 2776-05 ####[facility] LABORATORYCLIA [id number] [place] [address] [place] Urea nitrogen [Mass/Vol] 27 mg/dL High 9-24 [facility] Comment on above: Order Comment: Speci men Type: BLOOD SPECIMENOrdering Facility: [facility] Address: [address] [place] [address] Performed By: #### 2 4321-2, , 27711-04 ####[facility] LABORATORYCLIA [id number] [place] [address] [place] CALCIUM IONIZED Bon 06-18-19 22 Calcium.ionized (BldV) [Mass/Vol] 1.22 mmol/L Normal 1.08-1.30 [facility] Comment on above: Order Comment: Speci men Type: BLOOD SPECIMENOrdering Facility: [facility] Address: [address] [place] [address] Performed By: #### I CA ####[facility] LABORATORYCLIA [id number] [place] [address] [place] Calcium.ionized adjusted to pH 7.4 (Bld) [Moles/Vol] 1.23 mmol/L Normal 1.08-1.30 [facility] Comment on above: Order Comment: Speci men Type: BLOOD SPECIMENOrdering Facility: [facility] Address: [address] [place] [address] Performed By: #### I [place] ####[facility]ATORYCLIA [id number] [address] CBC panel Auto (Bld)on 06-18 Erythrocyte distribution width (RBC) [Ratio] 15.8 % High 11.5-15.0 [facility] Comment on above: Order Comment: Speci men Type: BLOOD SPECIMENOrdering Facility: [facility] Address: [address] [place] [address] Performed By: #### 5 8410-2 ####[facility]ORATORYCLIA [id number] [address] Hematocrit (Bld) [Volume fraction] 29.5 % Low 39.0-51.0 [facility] Comment on above: Order Comment: Speci men Type: BLOOD SPECIMENOrdering Facility: [facility] Address: [address] [place] [address] Performed By: #### 5 8410-2 ####[facility]ATORYCLIA [id number] [address] Hemoglobin (Bld) [Mass/Vol] 8.8 g/dL Low 13.0-17.0 [facility] Comment on above: Order Comment: Speci men Type: BLOOD SPECIMENOrdering Facility: [facility] Address: [address] [place] [address] Performed By: #### 5 8410-2 ####[facility]ATORYCLIA [id number] [address] MCH (RBC) [Entitic mass] 27.4 pg Normal 26.0-34.0 [facility] Comment on above: Order Comment: Speci men Type: BLOOD SPECIMENOrdering Facility: [facility] Address: [address] [place] [address] Performed By: #### 5 8410-2 ####[facility] LABORATORYCLIA [id number] [address] STATES [facility] MCHC (RBC) [Mass/Vol] 29.8 g/dL Low 30.5-36.0 [facility] Comment on above: Order Comment: Speci men Type: BLOOD SPECIMENOrdering Facility: [facility] Address: [address] [place], [place] [address] Performed By: #### 5 8410-2 ####[facility] LABORATORYCLIA [id number] [address] MCV (RBC) [Entitic vol] 91.9 fL Normal 80.0-100.0 [facility] Comment on above: Order Comment: Speci men Type: BLOOD SPECIMENOrdering Facility: [facility] Address: [address] [place], [place] [address] Performed By: #### 5 8410-2 ####[facility] LABORATORYCLIA [id number] [address] [place] Nucleated RBC (Bld) [#/Vol] 10*3/uL Normal <0.01 [facility] Comment on above: Order Comment: Speci men Type: BLOOD SPECIMENOrdering Facility: [facility] Address: [address] [place], [place] [address] Performed By: #### 5 8410-2 ####[facility] LABORATORYCLIA [id number] [address] Platelet mean volume (Bld) [Entitic vol] 11.9 fL Normal 9.0-12.7 [facility] Comment on above: Order Comment: Speci men Type: BLOOD SPECIMENOrdering Facility: [facility] Address: [address] [place], [place] [address] Performed By: #### 5 8410-2 ####[facility] LABORATORYCLIA [id number] [address] Platelets (Bld) [#/Vol] 291 10*3/uL Normal 150-400 [facility] Comment on above: Order Comment: Speci men Type: BLOOD SPECIMENOrdering Facility: [facility] Address: [address] [place], [place] [address] Performed By: #### 5 8410-2 ####[facility] LABORATORYCLIA [id number] [place] [address] [place] RBC (Bld) [#/Vol] 3.21 10*6/uL Low 4.20-6.00 [facility] Comment on above: Order Comment: Speci men Type: BLOOD SPECIMENOrdering Facility: [facility] Address: [address] [place] [address] Performed By: #### 5 8410-2 ####[facility] LABORATORYCLIA [id number] [address] STATES OF [facility] WBC (Bld) [#/Vol] 10.19 10*3/uL Normal 3.70-11.00 [facility] Comment on above: Order Comment: Speci men Type: BLOOD SPECIMENOrdering Facility: [facility] Address: [address] [place] [address] Performed By: #### 5 8410-2 ####[facility] LABORATORYCLIA [id number] [address] FERRITIN BLDon 06-18-2021 Ferritin [Mass/Vol] 600.9 ng/mL High 30.3-565.7 [facility] Comment on above: Order Comment: Speci men Type: BLOOD SPECIMENOrdering Facility: [facility] Address: [address] [place] [address] Performed By: #### S ERFOL, IRON, FERR ####[facility] LABORATORYCLIA [id number] [address] FOLATE SERUMon 06-18-2021 Folate [Mass/Vol] 14.3 ng/mL Normal >4.7 [facility] Comment on above: Order Comment: Speci men Type: BLOOD SPECIMENOrdering Facility: [facility] Address: [address] [place] [address] Performed By: #### S ERFOL, IRON, FERR ####[facility] LABORATORYCLIA [id number] [address] Gas and Carbon monoxide pane l (BldV)on 06-18-2021 Base excess Calc (BldV) [Moles/Vol] 0.5 mmol/L Normal 0-2 [facility] Comment on above: Order Comment: Speci men Type: VENOUS BLOOD SPECIMENOrdering Facility: [facility] Address: [address] [address] Performed By: #### 2 4344-4 ####[facility] LABORATORYCLIA [id number] [address] STATES OF [facility] Body temperature 97.34 [degF] Normal [facility] Comment on above: Order Comment: Speci men Type: VENOUS BLOOD SPECIMENOrdering Facility: [facility] Address: [address] [place] [address] Performed By: #### 2 4344-4 ####[facility] LABORATORYCLIA [id number] [address] [place] CALCIUM IONIZED, PH CORRECTED 1.26 mmol/L Normal 1.08-1.30 [facility] Comment on above: Order Comment: Speci men Type: VENOUS BLOOD SPECIMENOrdering Facility: [facility] Address: [address] [place] [address] Performed By: #### 2 4344-4 ####[facility] LABORATORYCLIA [id number] [address] [place] Calcium.ionized (BldV) [Mass/Vol] 1.25 mmol/L Normal 1.08-1.30 [facility] Comment on above: Order Comment: Speci men Type: VENOUS BLOOD SPECIMENOrdering Facility: [facility] Address: [address] [address] Performed By: #### 2 4344-4 ####[facility] LABORATORYCLIA [id number] [address] [place] Carboxyhemoglobin (BldV) [Mass fraction] 1.5 % Normal 0.0-2.0 [facility] Comment on above: Order Comment: Speci men Type: VENOUS BLOOD SPECIMENOrdering Facility: [facility] Address: [address] [address] Result Comment: Carb oxyhemoglobin Reference Range for Smokers: 2.0-8.0% Performed By: #### 2 4344-4 ####[facility] LABORATORYCLIA [id number] [address] CO2 (BldV) [Partial pressure] 38 mm[Hg] Low 42-55 [facility] Comment on above: Order Comment: Speci men Type: VENOUS BLOOD SPECIMENOrdering Facility: [facility] Address: [address] [place] [address] Performed By: #### 2 4344-4 ####[facility]ORATORYCLIA [id number] [address] [place] CO2 [Moles/Vol] 22.9 mmol/L Low 25-29 [facility] Comment on above: Order Comment: Speci men Type: VENOUS BLOOD SPECIMENOrdering Facility: [facility] Address: [address] [place] [address] Performed By: #### 2 4344-4 ####[facility] LABORATORYCLIA [id number] [address] CO2 adjusted to patient's actual temperature (BldV) [Partial pressure] 37 mmHg Low 42-55 [facility] Comment on above: Order Comment: Speci men Type: VENOUS BLOOD SPECIMENOrdering Facility: [facility] Address: [address] [place] [address] Performed By: #### 2 4344-4 ####[facility]ORATORYCLIA [id number] [address] [place] Glucose [Mass/Vol] 103 mg/dL Normal 60-105 [facility] Comment on above: Order Comment: Speci men Type: VENOUS BLOOD SPECIMENOrdering Facility: [facility] Address: [address] [place] [address] Performed By: #### 2 4344-4 ####[facility]ORATORYCLIA [id number] [place] [address] [place] HCO3 (Bld) [Moles/Vol] 24.4 mmol/L Normal 24-28 [facility] Comment on above: Order Comment: Speci men Type: VENOUS BLOOD SPECIMENOrdering Facility: [facility] Address: [address] [address] Performed By: #### 2 4344-4 ####[facility] LABORATORYCLIA [id number] [address] OF [facility] Hematocrit (Bld) [Volume fraction] 28.7 % Low 39.0-51.0 [facility] Comment on above: Order Comment: Speci men Type: VENOUS BLOOD SPECIMENOrdering Facility: [facility] Address: [address] [address] Performed By: #### 2 4344-4 ####[facility] LABORATORYCLIA [id number] [address] OF [facility] Hemoglobin (Bld) [Mass/Vol] 9.3 g/dL Low 13.0-17.0 [facility] Comment on above: Order Comment: Speci men Type: VENOUS BLOOD SPECIMENOrdering Facility: [facility] Address: [address] [address] Performed By: #### 2 4344-4 ####[facility]ORATORYCLIA [id number] [address] Methemoglobin (Bld) [Mass fraction] % Normal 0.0-1.5 [facility] Comment on above: Order Comment: Speci men Type: VENOUS BLOOD SPECIMENOrdering Facility: [facility] Address: [address] [address] Performed By: #### 2 4344-4 ####[facility] LABORATORYCLIA [id number] [address] O2 THERAPY Ventilator Normal [facility] Comment on above: Order Comment: Speci men Type: VENOUS BLOOD SPECIMENOrdering Facility: [facility] Address: [address] [address] Performed By: #### 2 4344-4 ####[facility]ORATORYCLIA [id number] [address] OF [place] Oxygen (BldV) [Partial pressure] 37 mm[Hg] Normal 35-45 [facility] Comment on above: Order Comment: Speci men Type: VENOUS BLOOD SPECIMENOrdering Facility: [facility] Address: [address] [place] [address] Performed By: #### 2 4344-4 ####[facility]ORATORYCLIA [id number] [address] OF [place] Oxygen adjusted to patient's actual temperature (BldV) [Partial pressure] 35.1 mmHg Normal 35-45 [facility] Comment on above: Order Comment: Speci men Type: VENOUS BLOOD SPECIMENOrdering Facility: [facility] Address: [address] [place] [address] Performed By: #### 2 4344-4 ####[facility] LABORATORYCLIA [id number] [address] Oxygen saturation in Blood 67.1 % Normal 60-85 [facility] Comment on above: Order Comment: Speci men Type: VENOUS BLOOD SPECIMENOrdering Facility: [facility] Address: [address] [place] [address] Performed By: #### 2 4344-4 ####[facility]ORATORYCLIA [id number] [address] [place] Oxyhemoglobin (BldV) [Mass fraction] 66 % Normal 60-85 [facility] Comment on above: Order Comment: Speci men Type: VENOUS BLOOD SPECIMENOrdering Facility: [facility] Address: [address] [place] [address] Performed By: #### 2 4344-4 ####[facility] LABORATORYCLIA [id number] [address] OF [place] pH (BldV) 7.42 [pH] Normal 7.32-7.42 [facility] Comment on above: Order Comment: Speci men Type: VENOUS BLOOD SPECIMENOrdering Facility: [facility] Address: [address] [address] Performed By: #### 2 4344-4 ####[facility]ORATORYCLIA [id number] [address] STATES [facility] pH adjusted to patient's actual temperature (BldV) 7.43 High 7.32-7.42 [facility] Comment on above: Order Comment: Speci men Type: VENOUS BLOOD SPECIMENOrdering Facility: [facility] Address: [address] [place] [address] Performed By: #### 2 4344-4 ####[facility]ORATORYCLIA [id number] [address] [place] Potassium [Moles/Vol] 4.0 mmol/L Normal 3.5-5.0 [facility] Comment on above: Order Comment: Speci men Type: VENOUS BLOOD SPECIMENOrdering Facility: [facility] Address: [address] [place] [address] Performed By: #### 2 4344-4 ####[facility]ORATORYCLIA [id number] [address] [place] Sodium [Moles/Vol] 146 mmol/L High 136-144 [facility] Comment on above: Order Comment: Speci men Type: VENOUS BLOOD SPECIMENOrdering Facility: [facility] Address: [address] [place] [address] Performed By: #### 2 4344-4 ####[facility] LABORATORYCLIA [id number] [address] [place] HEMOGLOBIN (HGB)on 2 Hemoglobin (Bld) [Mass/Vol] 9.2 g/dL Low 13.0-17.0 [facility] Comment on above: Order Comment: Speci men Type: BLOOD SPECIMENOrdering Facility: [facility] Address: [address] [place] [address] Performed By: #### H GB ####[facility] LABORATORYCLIA [id number] [address] [place] IRON + TIBCon 06-18-2021 Iron [Mass/Vol] 27 ug/dL Low 41-186 [facility] Comment on above: Order Comment: Speci men Type: BLOOD SPECIMENOrdering Facility: [facility] Address: [address] [place] [address] Performed By: #### S ERFOL, IRON, FERR ####[facility] LABORATORYCLIA [id number] [address] [place] Iron binding capacity [Mass/Vol] 141 ug/dL Low 232-386 [facility] Comment on above: Order Comment: Speci men Type: BLOOD SPECIMENOrdering Facility: [facility] Address: [address] [place] [address] Performed By: #### S ERFOL, IRON, FERR ####[facility] LABORATORYCLIA [id number] [address] Iron saturation [Mass fraction] 19 % Normal 15-57 [facility] Comment on above: Order Comment: Speci men Type: BLOOD SPECIMENOrdering Facility: [facility] Address: [address] [place] [address] Performed By: #### S ERFOL, IRON, FERR ####[facility] LABORATORYCLIA [id number] [address] [place] Magnesium SerPl-mCncon 06-18 Magnesium [Mass/Vol] 2.5 mg/dL High 1.7-2.3 [facility] Comment on above: Order Comment: Speci men Type: BLOOD SPECIMENOrdering Facility: [facility] Address: [address] [place] [address] Performed By: #### 2 4321-2, 31235-0, 2777-1 ####[facility] LABORATORYCLIA [id number] [place] [address] [place] NURSING PROGon 06-18-2021 NURSING PROG Normal [facility] Phosphate SerPl-mCncon 06-18 Phosphate [Mass/Vol] 3.0 mg/dL Normal 2.7-4.8 [facility] Comment on above: Order Comment: Speci men Type: BLOOD SPECIMENOrdering Facility: [facility] Address: [address] [place] [address] Performed By: #### 2 4321-2, 86906-1, 2777-1 ####[facility]ORATORYCLIA [id number] [address] THERAPY NTon 06-18-2021 THERAPY NT Normal [facility] aPTT PPPon 06-18-2021 aPTT Coag (PPP) [Time] 43.0 s High 23.0-32.4 [facility] Comment on above: Order Comment: Speci men Type: BLOOD SPECIMENOrdering Facility: [facility] Address: [address] [place] [address] Performed By: #### 1 4979-9 ####[facility] LABORATORYCLIA [id number] [address] aPTT Coag (PPP) [Time] 60.6 s High 23.0-32.4 [facility] Comment on above: Order Comment: Speci men Type: BLOOD SPECIMENOrdering Facility: [facility] Address: [address] [place] [address] Performed By: #### 1 4979-9 ####[facility]ORATORYCLIA [id number] [address] aPTT Coag (PPP) [Time] 46.4 s High 23.0-32.4 [facility] Comment on above: Order Comment: Speci men Type: BLOOD SPECIMENOrdering Facility: [facility] Address: [address] [place] [address] Performed By: #### 1 4979-9 ####[facility] LABORATORYCLIA [id number] [address] OF [facility] Basic metabolic 2000 panelon 06-17-2021 Anion gap [Moles/Vol] 7 mmol/L Low 9-18 [facility] Comment on above: Order Comment: Speci men Type: BLOOD SPECIMENOrdering Facility: [facility] Address: [address] [place] [address] Performed By: #### 2 951-2, , 2776-05, 87845-6 ####[facility] LABORATORYCLIA [id number] [place] [address] [place] Calcium [Mass/Vol] 8.1 mg/dL Low 8.5-10.2 [facility] Comment on above: Order Comment: Speci men Type: BLOOD SPECIMENOrdering Facility: [facility] Address: [address] [place] [address] Performed By: #### 2 951-2, , 2776-05, 33678-4 ####[facility] LABORATORYCLIA [id number] [place] [address] [place] Chloride [Moles/Vol] 113 mmol/L High 97-105 [facility] Comment on above: Order Comment: Speci men Type: BLOOD SPECIMENOrdering Facility: [facility] Address: [address] [place] [address] Performed By: #### 2 951-2, , 2776-05, ####[facility] LABORATORYCLIA [id number] [place] [address] [place] CO2 [Moles/Vol] 25 mmol/L Normal 22-30 [facility] Comment on above: Order Comment: Speci men Type: BLOOD SPECIMENOrdering Facility: [facility] Address: [address] [place] [address] Performed By: #### 2 951-2, , 2776-05, 59220-2 ####[facility] LABORATORYCLIA [id number] [place] [address] [place] Creatinine [Mass/Vol] 0.70 mg/dL Low 0.73-1.22 [facility] Comment on above: Order Comment: Speci men Type: BLOOD SPECIMENOrdering Facility: [facility] Address: [address] [place] [address] Performed By: #### 2 951-2, 94317-2, 2777-1, 00336-6 ####[facility]ITALCLIA [id number] [address] [place] GFR/1.73 sq M.predicted MDRD (S/P/Bld) [Vol rate/Area] mL/min/{1.73_m2} Normal [facility] Comment on above: Order Comment: Shira feldman Type: BLOOD SPECIMENOrdering Facility: [facility] Address: [address] [phone] Result Comment: >60e GFR (Estimated GFR) Units [...] actual GFR. Performed By: #### 2 951-2, 60813-0, 2777-1, 98293-4 ####[facility] LABORATORYIA [id number] [address] [place] Glucose [Mass/Vol] 122 mg/dL High 74-99 [facility] Comment on above: Order Comment: Shira feldman Type: BLOOD SPECIMENOrdering Facility: [facility] Address: [address] [phone] Result Comment: The [place] Diabetes [employer] (ADA) provides guidance for cutoff [...] Standards of Medical Care in Diabetes 2016, [place] [employer]. Diabetes Care. 2016.39(Suppl 1). Performed By: #### 2 951-2, , 2776-05, 12448-4 ####[facility] LABORATORYCLIA [id number] [address] STATES OF [facility] Potassium [Moles/Vol] 3.5 mmol/L Low 3.7-5.1 [facility] Comment on above: Order Comment: Shira feldman Type: BLOOD SPECIMENOrdering Facility: [facility] Address: [address] [place] [address] Performed By: #### 2 951-2, , 2776-05, ####[facility]ORATORYCLIA [id number] [address] [place] Urea nitrogen [Mass/Vol] 27 mg/dL High 9-24 [facility] Comment on above: Order Comment: Shira feldman Type: BLOOD SPECIMENOrdering Facility: [facility] Address: [address] [place] [address] Performed By: #### 2 951-2, , 2776-05, ####[facility]ORATORYCLIA [id number] [address] [place] CASE MANAGEMon 06-17-2021 CASE MANAGEM Normal [facility] CBC panel Auto (Bld)on 06-17 Erythrocyte distribution width (RBC) [Ratio] 15.9 % High 11.5-15.0 [facility] Comment on above: Order Comment: Shira feldman Type: BLOOD SPECIMENOrdering Facility: [facility] Address: [facility] [address] Performed By: #### 5 8410-2 ####[facility] LABORATORYCLIA [id number] [address] [place] Hematocrit (Bld) [Volume fraction] 28.9 % Low 39.0-51.0 [facility] Comment on above: Order Comment: Speci men Type: BLOOD SPECIMENOrdering Facility: [facility] Address: [address] [place] [address] Performed By: #### 5 8410-2 ####[facility] LABORATORYCLIA [id number] [address] OF [facility] Hemoglobin (Bld) [Mass/Vol] 8.8 g/dL Low 13.0-17.0 [facility] Comment on above: Order Comment: Speci men Type: BLOOD SPECIMENOrdering Facility: [facility] Address: [address] [place] [address] Performed By: #### 5 8410-2 ####[facility]ORATORYCLIA [id number] [address] STATES OF [facility] MCH (RBC) [Entitic mass] 28.4 pg Normal 26.0-34.0 [facility] Comment on above: Order Comment: Speci men Type: BLOOD SPECIMENOrdering Facility: [facility] Address: [address] [place] [address] Performed By: #### 5 8410-2 ####[facility]ORATORYCLIA [id number] [address] OF [facility] MCHC (RBC) [Mass/Vol] 30.4 g/dL Low 30.5-36.0 [facility] Comment on above: Order Comment: Speci men Type: BLOOD SPECIMENOrdering Facility: [facility] Address: [address] [place] [address] Performed By: #### 5 8410-2 ####[facility] LABORATORYCLIA [id number] [address] STATES [facility] MCV (RBC) [Entitic vol] 93.2 fL Normal 80.0-100.0 [facility] Comment on above: Order Comment: Speci men Type: BLOOD SPECIMENOrdering Facility: [facility] Address: [address] [place] [address] Performed By: #### 5 8410-2 ####[facility]ORATORYCLIA [id number] [address] [place] Nucleated RBC (Bld) [#/Vol] 10*3/uL Normal <0.01 [facility] Comment on above: Order Comment: Speci men Type: BLOOD SPECIMENOrdering Facility: [facility] Address: [address] [place] [address] Performed By: #### 5 8410-2 ####[facility]ORATORYCLIA [id number] [address] [place] Platelet mean volume (Bld) [Entitic vol] 11.9 fL Normal 9.0-12.7 [facility] Comment on above: Order Comment: Speci men Type: BLOOD SPECIMENOrdering Facility: [facility] Address: [address] [place] [address] Performed By: #### 5 8410-2 ####[facility] LABORATORYCLIA [id number] [address] OF [facility] Platelets (Bld) [#/Vol] 257 10*3/uL Normal 150-400 [facility] Comment on above: Order Comment: Speci men Type: BLOOD SPECIMENOrdering Facility: [facility] Address: [address] [place] [address] Performed By: #### 5 8410-2 ####[facility]ORATORYCLIA [id number] [address] [place] RBC (Bld) [#/Vol] 3.10 10*6/uL Low 4.20-6.00 [facility] Comment on above: Order Comment: Speci men Type: BLOOD SPECIMENOrdering Facility: [facility] Address: [address] [place] [address] Performed By: #### 5 8410-2 ####[facility] LABORATORYCLIA [id number] [address] [place] WBC (Bld) [#/Vol] 10.54 10*3/uL Normal 3.70-11.00 [facility] Comment on above: Order Comment: Speci men Type: BLOOD SPECIMENOrdering Facility: [facility] Address: [address] [place] [address] Performed By: #### 5 8410-2 ####[facility]ORATORYCLIA [id number] [address] [place] HEMOGLOBIN (HGB)on Hemoglobin (Bld) [Mass/Vol] 8.8 g/dL Low 13.0-17.0 [facility] Comment on above: Order Comment: Speci men Type: BLOOD SPECIMENOrdering Facility: [facility] Address: [address] [place] [address] Performed By: #### H GB ####[facility] LABORATORYCLIA [id number] [address] [place] Magnesium SerPl-mCncon 06-17 Magnesium [Mass/Vol] 2.5 mg/dL High 1.7-2.3 [facility] Comment on above: Order Comment: Speci men Type: BLOOD SPECIMENOrdering Facility: [facility] Address: [address] [place] [address] Performed By: #### 2 951-2, , 2776-05, 04557-4 ####[facility]ITAL[facility] [id number] [address] [place] NURSING PROGon 06-17-2021 NURSING PROG Normal [facility] NURSING PROG Normal [facility] NURSING PROG Normal [facility] Phosphate SerPl-mCncon 06-17 Phosphate [Mass/Vol] 1.9 mg/dL Low 2.7-4.8 [facility] Comment on above: Order Comment: Speci men Type: BLOOD SPECIMENOrdering Facility: [facility] Address: [address] [place] [address] Performed By: #### 2 951-2, 24611-9, 2777-1, 31372-4 ####[facility] LABORATORYCLIA [id number] [address] [place] Sodium SerPl-sCncon 06-17-19 22 Sodium [Moles/Vol] 144 mmol/L Normal 136-144 [facility] Comment on above: Order Comment: Speci men Type: BLOOD SPECIMENOrdering Facility: [facility] Address: [address] [place] [address] Performed By: #### 2 951-2 ####[facility] LABORATORYCLIA [id number] [address] [place] Sodium [Moles/Vol] 145 mmol/L High 136-144 [facility] Comment on above: Order Comment: Speci men Type: BLOOD SPECIMENOrdering Facility: [facility] Address: [address] [place] [address] Performed By: #### 2 951-2, 74843-7, 2777-1, 02214-1 ####[facility]ATORYCLIA [id number] [address] [place] aPTT PPPon 06-17-2021 aPTT Coag (PPP) [Time] 55.8 s High 23.0-32.4 [facility] Comment on above: Order Comment: Speci men Type: BLOOD SPECIMENOrdering Facility: [facility] Address: [address] [place] [address] Performed By: #### 1 4979-9 ####[facility]ORATORYCLIA [id number] [address] [place] ARTERIAL BLOOD GASESon 06-16 Base excess Calc (Bld) [Moles/Vol] 3 mmol/L High 0-2 [facility] Comment on above: Order Comment: Speci men Type: ARTERIAL BLOOD SPECIMENOrdering Facility: [facility] Address: [address] [place] [address] Performed By: #### A LLBG ####[facility]ORATORYCLIA [id number] [address] [place] Body temperature 99.14 [degF] Normal [facility] Comment on above: Order Comment: Speci men Type: ARTERIAL BLOOD SPECIMENOrdering Facility: [facility] Address: [address] [place] [address] Performed By: #### A LLBG ####[facility]ORATORYCLIA [id number] [address] CALCIUM IONIZED, PH CORRECTED 1.21 mmol/L Normal 1.08-1.30 [facility] Comment on above: Order Comment: Speci men Type: ARTERIAL BLOOD SPECIMENOrdering Facility: [facility] Address: [address] [place] [address] Performed By: #### A LLBG ####[facility]ATORYCLIA [id number] [address] Calcium.ionized (BldV) [Mass/Vol] 1.17 mmol/L Normal 1.08-1.30 [facility] Comment on above: Order Comment: Speci men Type: ARTERIAL BLOOD SPECIMENOrdering Facility: [facility] Address: [address] [place] [address] Performed By: #### A LLBG ####[facility]ATORYCLIA [id number] [address] Carboxyhemoglobin (BldA) [Mass fraction] 1.4 % Normal 0.0-2.0 [facility] Comment on above: Order Comment: Speci men Type: ARTERIAL BLOOD SPECIMENOrdering Facility: [facility] Address: [address] [place] [address] Result Comment: Carb oxyhemoglobin Reference Range for Smokers: 2.0-8.0% Performed By: #### A LLBG ####[facility]ORATORYCLIA [id number] [address] OF [facility] CO2 (Bld) [Partial pressure] 38 mm Hg Normal 36-46 [facility] Comment on above: Order Comment: Speci men Type: ARTERIAL BLOOD SPECIMENOrdering Facility: [facility] Address: [address] [place] [address] Performed By: #### A LLBG ####[facility]ATORYCLIA [id number] [address] [place] CO2 [Moles/Vol] 24.5 mmol/L Normal 22-28 [facility] Comment on above: Order Comment: Speci men Type: ARTERIAL BLOOD SPECIMENOrdering Facility: [facility] Address: [address] [place] [address] Performed By: #### A LLBG ####[facility]ATORYCLIA [id number] [address] [place] CO2 adjusted to patient's actual temperature (Bld) [Partial pressure] 38 mmHg Normal 36-46 [facility] Comment on above: Order Comment: Speci men Type: ARTERIAL BLOOD SPECIMENOrdering Facility: [facility] Address: [address] [place] [address] Performed By: #### A LLBG ####[facility]ATORYCLIA [id number] [address] [place] Glucose [Mass/Vol] 147 mg/dL High 60-105 [facility] Comment on above: Order Comment: Speci men Type: ARTERIAL BLOOD SPECIMENOrdering Facility: [facility] Address: [address] [place] [address] Performed By: #### A LLBG ####[facility]ATORYCLIA [id number] [address] [place] HCO3 (Bld) [Moles/Vol] 27 mmol/L High 22-26 [facility] Comment on above: Order Comment: Speci men Type: ARTERIAL BLOOD SPECIMENOrdering Facility: [facility] Address: [address] [place] [address] Performed By: #### A LLBG ####[facility]ORATORYCLIA [id number] [address] [place] Hematocrit (Bld) [Volume fraction] 31.8 % Low 39.0-51.0 [facility] Comment on above: Order Comment: Speci men Type: ARTERIAL BLOOD SPECIMENOrdering Facility: [facility] Address: [address] [place] [address] Performed By: #### A LLBG ####[facility]ORATORYCLIA [id number] [address] [place] Hemoglobin (Bld) [Mass/Vol] 10.3 g/dL Low 13.0-17.0 [facility] Comment on above: Order Comment: Speci men Type: ARTERIAL BLOOD SPECIMENOrdering Facility: [facility] Address: [address] [place] [address] Performed By: #### A LLBG ####[facility]ORATORYCLIA [id number] [address] [place] Methemoglobin (Bld) [Mass fraction] 1.0 % Normal 0.0-1.5 [facility] Comment on above: Order Comment: Speci men Type: ARTERIAL BLOOD SPECIMENOrdering Facility: [facility] Address: [address] [place] [address] Performed By: #### A LLBG ####[facility]ORATORYCLIA [id number] [address] [place] O2 THERAPY Ventilator Normal [facility] Comment on above: Order Comment: Speci men Type: ARTERIAL BLOOD SPECIMENOrdering Facility: [facility] Address: [address] [place] [address] Performed By: #### A LLBG ####[facility]ORATORYCLIA [id number] [address] [place] Oxygen (Bld) [Partial pressure] 78 mm Hg Low 85-95 [facility] Comment on above: Order Comment: Speci men Type: ARTERIAL BLOOD SPECIMENOrdering Facility: [facility] Address: [address] [place] [address] Performed By: #### A LLBG ####[facility]ORATORYCLIA [id number] [address] [place] Oxygen adjusted to patient's actual temperature (Bld) [Partial pressure] 79.7 mmHg Low 85-95 [facility] Comment on above: Order Comment: Speci men Type: ARTERIAL BLOOD SPECIMENOrdering Facility: [facility] Address: [address] [place] [address] Performed By: #### A LLBG ####[facility]ORATORYCLIA [id number] [address] OXYGEN SATURATION, ARTERIAL 96 % Normal 95-98 [facility] Comment on above: Order Comment: Speci men Type: ARTERIAL BLOOD SPECIMENOrdering Facility: [facility] Address: [address] [place] [address] Performed By: #### A LLBG ####[facility]ORATORYCLIA [id number] [address] [place] Oxyhemoglobin (BldA) [Mass fraction] 94 % Low 95-98 [facility] Comment on above: Order Comment: Speci men Type: ARTERIAL BLOOD SPECIMENOrdering Facility: [facility] Address: [address] [place] [address] Performed By: #### A LLBG ####[facility]ORATORYCLIA [id number] [place] [address] [place] pH (Bld) 7.47 [pH] High 7.35-7.45 [facility] Comment on above: Order Comment: Speci men Type: ARTERIAL BLOOD SPECIMENOrdering Facility: [facility] Address: [address] [place] [address] Performed By: #### A LLBG ####[facility]ORATORYCLIA [id number] [address] pH adjusted to patient's actual temperature (Bld) 7.46 High 7.35-7.45 [facility] Comment on above: Order Comment: Speci men Type: ARTERIAL BLOOD SPECIMENOrdering Facility: [facility] Address: [address] [place] [address] Performed By: #### A LLBG ####[facility]ORATORYCLIA [id number] [place] [address] [place] Potassium [Moles/Vol] 3.7 mmol/L Normal 3.5-5.0 [facility] Comment on above: Order Comment: Speci men Type: ARTERIAL BLOOD SPECIMENOrdering Facility: [facility] Address: [address] [place] [address] Performed By: #### A LLBG ####[facility]ORATORYCLIA [id number] [place] [address] [place] Sodium [Moles/Vol] 155 mmol/L High 136-144 [facility] Comment on above: Order Comment: Speci men Type: ARTERIAL BLOOD SPECIMENOrdering Facility: [facility] Address: [address] [place] [address] Performed By: #### A LLBG ####[facility]ORATORYCLIA [id number] [place] [address] [place] Bacteria Spec Resp Culton Bacteria identified Respiratory culture Nom (Unsp spec) CULTURE, RESPIRATORY: Rare Normal respiratory chris present ORGANISM ID: 1 Few Yeast, not cryptococcus neoformans GRAM STAIN: No organisms seen Few Polymorphonuclear leukocytes Few Epithelial cells Abnormal [facility] Comment on above: Performed By: #### 3 2355-0 ####[facility]ORATORYCLIA [id number] [place] [address] [place] Basic metabolic 2000 panelon 06-16-2021 Anion gap [Moles/Vol] 9 mmol/L Normal 9-18 [facility] Comment on above: Order Comment: Speci men Type: BLOOD SPECIMENOrdering Facility: [facility] Address: [address] [place] [address] Performed By: #### 2 4321-2 ####[facility]ORATORYCLIA [id number] [place] [address] [place] Calcium [Mass/Vol] 8.4 mg/dL Low 8.5-10.2 [facility] Comment on above: Order Comment: Speci men Type: BLOOD SPECIMENOrdering Facility: [facility] Address: [address] [place] [address] Performed By: #### 2 4321-2 ####[facility]ORATORYCLIA [id number] [place] [address] [place] Chloride [Moles/Vol] 120 mmol/L High 97-105 [facility] Comment on above: Order Comment: Speci men Type: BLOOD SPECIMENOrdering Facility: [facility] Address: [address] [place] [address] Performed By: #### 2 4321-2 ####[facility]ORATORYCLIA [id number] [place] [address] [place] CO2 [Moles/Vol] 27 mmol/L Normal 22-30 [facility] Comment on above: Order Comment: Speci men Type: BLOOD SPECIMENOrdering Facility: [facility] Address: [address] [place] [address] Performed By: #### 2 4321-2 ####[facility]ORATORYCLIA [id number] [address] [place] Creatinine [Mass/Vol] 0.75 mg/dL Normal 0.73-1.22 [facility] Comment on above: Order Comment: Speci men Type: BLOOD SPECIMENOrdering Facility: [facility] Address: [address] [place] [address] Performed By: #### 2 4321-2 ####[facility]ORATORYCLIA [id number] [place] [address] [place] GFR/1.73 sq M.predicted MDRD (S/P/Bld) [Vol rate/Area] mL/min/{1.73_m2} Normal [facility] Comment on above: Order Comment: Speci men Type: BLOOD SPECIMENOrdering Facility: [facility] Address: [address] [place] [address] Result Comment: >60e GFR (Estimated GFR) Units [...] actual GFR. Performed By: #### 2 4321-2 ####[facility]ORATORYCLIA [id number] [place] [address] [place] Glucose [Mass/Vol] 160 mg/dL High 74-99 [facility] Comment on above: Order Comment: Shira feldman Type: BLOOD SPECIMENOrdering Facility: [facility] Address: [address] [place] [address] Result Comment: The [place] Diabetes Association (ADA) provides guidance for cutoff [...] Standards of Medical Care in Diabetes 2016, [employer]. Diabetes Care. 2016.39(Suppl 1). Performed By: #### 2 4321-2 ####[facility]ORATORYCLIA [id number] [place] [address] [place] Potassium [Moles/Vol] 3.1 mmol/L Low 3.7-5.1 [facility] Comment on above: Order Comment: Shira feldman Type: BLOOD SPECIMENOrdering Facility: [facility] Address: [address] [address] Performed By: #### 2 4321-2 ####[facility]ORATORYCLIA [id number] [place] [address] [place] Sodium [Moles/Vol] 156 mmol/L High 136-144 [facility] Comment on above: Order Comment: Shira feldman Type: BLOOD SPECIMENOrdering Facility: [facility] Address: [address] [address] Performed By: #### 2 4321-2 ####[facility]ORATORYCLIA [id number] [place] [address] [place] Urea nitrogen [Mass/Vol] 33 mg/dL High 9-24 [facility] Comment on above: Order Comment: Speci men Type: BLOOD SPECIMENOrdering Facility: [facility] Address: [address] [place] [address] Performed By: #### 2 4321-2 ####[facility]ORATORYCLIA [id number] [address] [place] CASE MANAGEMon 06-16-2021 CASE MANAGEM Normal [facility] CBC panel Auto (Bld)on 06-16 Erythrocyte distribution width (RBC) [Ratio] 15.9 % High 11.5-15.0 [facility] Comment on above: Order Comment: Speci men Type: BLOOD SPECIMENOrdering Facility: [facility] Address: [address] [place] [address] Performed By: #### 5 8410-2 ####[facility]ORATORYCLIA [id number] [address] [place] Hematocrit (Bld) [Volume fraction] 34.6 % Low 39.0-51.0 [facility] Comment on above: Order Comment: Speci men Type: BLOOD SPECIMENOrdering Facility: [facility] Address: [address] [place] [address] Performed By: #### 5 8410-2 ####[facility]ATORYCLIA [id number] [address] [place] Hemoglobin (Bld) [Mass/Vol] 10.2 g/dL Low 13.0-17.0 [facility] Comment on above: Order Comment: Speci men Type: BLOOD SPECIMENOrdering Facility: [facility] Address: [address] [place] [address] Performed By: #### 5 8410-2 ####[facility]ATORYCLIA [id number] [address] [place] MCH (RBC) [Entitic mass] 28.5 pg Normal 26.0-34.0 [facility] Comment on above: Order Comment: Speci men Type: BLOOD SPECIMENOrdering Facility: [facility] Address: [address] [place] [address] Performed By: #### 5 8410-2 ####[facility]ATORYCLIA [id number] [address] MCHC (RBC) [Mass/Vol] 29.5 g/dL Low 30.5-36.0 [facility] Comment on above: Order Comment: Speci men Type: BLOOD SPECIMENOrdering Facility: [facility] Address: [address] [place] [address] Performed By: #### 5 8410-2 ####[facility]ATORYCLIA [id number] [address] MCV (RBC) [Entitic vol] 96.6 fL Normal 80.0-100.0 [facility] Comment on above: Order Comment: Speci men Type: BLOOD SPECIMENOrdering Facility: [facility] Address: [address] [place] [address] Performed By: #### 5 8410-2 ####[facility]ATORYCLIA [id number] [address] Nucleated RBC (Bld) [#/Vol] 10*3/uL Normal <0.01 [facility] Comment on above: Order Comment: Speci men Type: BLOOD SPECIMENOrdering Facility: [facility] Address: [address] [place] [address] Performed By: #### 5 8410-2 ####[facility]ORATORYCLIA [id number] [address] Platelet mean volume (Bld) [Entitic vol] 11.9 fL Normal 9.0-12.7 [facility] Comment on above: Order Comment: Speci men Type: BLOOD SPECIMENOrdering Facility: [facility] Address: [address] [place] [address] Performed By: #### 5 8410-2 ####[facility]ATORYCLIA [id number] [address] Platelets (Bld) [#/Vol] 269 10*3/uL Normal 150-400 [facility] Comment on above: Order Comment: Speci men Type: BLOOD SPECIMENOrdering Facility: [facility] Address: [address] [place] [address] Performed By: #### 5 8410-2 ####[facility]ATORYCLIA [id number] [address] [place] RBC (Bld) [#/Vol] 3.58 10*6/uL Low 4.20-6.00 [facility] Comment on above: Order Comment: Speci men Type: BLOOD SPECIMENOrdering Facility: [facility] Address: [address] [place] [address] Performed By: #### 5 8410-2 ####[facility]ATORYCLIA [id number] [address] WBC (Bld) [#/Vol] 13.11 10*3/uL High 3.70-11.00 [facility] Comment on above: Order Comment: Speci men Type: BLOOD SPECIMENOrdering Facility: [facility] Address: [address] [place] [address] Performed By: #### 5 8410-2 ####[facility]ATORYCLIA [id number] [address] [place] CONSULTon 06-16-2021 CONSULT Normal [facility] CONSULT PROGon 06-16-2021 CONSULT PROG Normal [facility] CT BRAIN WO IVCONon 06-16-[address] BRAIN WO IVCON Normal [facility] HEMOGLOBIN (HGB)on 2 Hemoglobin (Bld) [Mass/Vol] 8.9 g/dL Low 13.0-17.0 [facility] Comment on above: Order Comment: Speci men Type: BLOOD SPECIMENOrdering Facility: [facility] Address: [address] [place] [address] Performed By: #### H GB ####[facility]ATORYCLIA [id number] [address] [place] Hemoglobin (Bld) [Mass/Vol] 9.6 g/dL Low 13.0-17.0 [facility] Comment on above: Order Comment: Speci men Type: BLOOD SPECIMENOrdering Facility: [facility] Address: [address] [place] [address] Performed By: #### H GB ####[facility]ATORYCLIA [id number] [address] [place] Magnesium SerPl-mCncon 06-16 Magnesium [Mass/Vol] 2.7 mg/dL High 1.7-2.3 [facility] Comment on above: Order Comment: Speci men Type: BLOOD SPECIMENOrdering Facility: [facility] Address: [address] [place] [address] Performed By: #### 1 9123-9 ####[facility]ATORYCLIA [id number] [place] [address] [place] NURSING PROGon 06-16-2021 NURSING PROG Normal [facility] NUTRITIONon 06-16-2021 NUTRITION Normal [facility] Phosphate SerPl-mCncon 06-16 Phosphate [Mass/Vol] 1.4 mg/dL Low 2.7-4.8 [facility] Comment on above: Order Comment: Speci men Type: BLOOD SPECIMENOrdering Facility: [facility] Address: [address] [place] [address] Performed By: #### 2 777-1 ####[facility]ORATORYCLIA [id number] [address] [place] STAPH AUREUS PCRon S. aureus and MRSA panel MEGAN+probe (Nose) Normal Negative [facility] Comment on above: Order Comment: Speci men Type: SWAB OF INTERNAL NOSEOrdering Facility: [facility] Address: [address] [place] [address] Result Comment: Nega tive for Staphylococcus aureus by PCR.Negative for MRSA by PCR Performed By: #### S APCR ####[facility]ORATORYCLIA [id number] [place] [address] [place] Sodium SerPl-sCncon 06-16-19 Sodium [Moles/Vol] 150 mmol/L High 136-144 [facility] Comment on above: Order Comment: Speci men Type: BLOOD SPECIMENOrdering Facility: [facility] Address: [address] [place] [address] Performed By: #### 2 951-2 ####[facility]ATORYCLIA [id number] [place] [address] [place] Sodium [Moles/Vol] 153 mmol/L High 136-144 [facility] Comment on above: Order Comment: Speci men Type: BLOOD SPECIMENOrdering Facility: [facility] Address: [address] [place] [address] Performed By: #### 2 951-2 ####[facility] [id number] [address] STATES OF [facility] Sodium [Moles/Vol] 158 mmol/L High 136-144 [facility] Comment on above: Order Comment: Speci men Type: BLOOD SPECIMENOrdering Facility: [facility] Address: [address] [place] [address] Performed By: #### 2 951-2 ####[facility]ATORYCLIA [id number] [place] [address] [place] aPTT PPPon 06-16-2021 aPTT Coag (PPP) [Time] 61.8 s High 23.0-32.4 [facility] Comment on above: Order Comment: Speci men Type: BLOOD SPECIMENOrdering Facility: [facility] Address: [address] [place] [address] Performed By: #### 1 4979-9 ####[facility]ATORYCLIA [id number] [address] [place] aPTT Coag (PPP) [Time] 57.6 s High 23.0-32.4 [facility] Comment on above: Order Comment: Speci men Type: BLOOD SPECIMENOrdering Facility: [facility] Address: [address] [place] [address] Performed By: #### 1 4979-9 ####[facility]ATORYCLIA [id number] [address] [place] ALLIED HEALTHon 06-15-2021 ALLIED HEALTH Normal [facility] ALLIED HEALTH Normal [facility] ALLIED HEALTH Normal [facility] ALLIED HEALTH Normal [facility] ARTERIAL BLOOD GASESon 06-15 Base excess Calc (Bld) [Moles/Vol] 3 mmol/L High 0-2 [facility] Comment on above: Order Comment: Speci men Type: ARTERIAL BLOOD SPECIMENOrdering Facility: [facility] Address: [address] [place] [address] Performed By: #### A LLBG ####[facility]ATORYCLIA [id number] [address] Body temperature 99.5 [degF] Normal [facility] Comment on above: Order Comment: Speci men Type: ARTERIAL BLOOD SPECIMENOrdering Facility: [facility] Address: [address] [place] [address] Performed By: #### A LLBG ####[facility]ATORYCLIA [id number] [address] [place] CALCIUM IONIZED, PH CORRECTED 1.34 mmol/L High 1.08-1.30 [facility] Comment on above: Order Comment: Speci men Type: ARTERIAL BLOOD SPECIMENOrdering Facility: [facility] Address: [address] [place] [address] Performed By: #### A LLBG ####[facility] [place] LABORATORYCLIA [id number] [address] [place] Calcium.ionized (BldV) [Mass/Vol] 1.29 mmol/L Normal 1.08-1.30 [facility] Comment on above: Order Comment: Speci men Type: ARTERIAL BLOOD SPECIMENOrdering Facility: [facility] Address: [address] [place] [address] Performed By: #### A LLBG ####[facility] [place] LABORATORYCLIA [id number] [address] [place] Carboxyhemoglobin (BldA) [Mass fraction] 1.3 % Normal 0.0-2.0 [facility] Comment on above: Order Comment: Speci men Type: ARTERIAL BLOOD SPECIMENOrdering Facility: [facility] Address: [address] [place] [address] Result Comment: Carb oxyhemoglobin Reference Range for Smokers: 2.0-8.0% Performed By: #### A LLBG ####[facility] LABORATORYCLIA [id number] [address] [place] CO2 (Bld) [Partial pressure] 37 mm Hg Normal 36-46 [facility] Comment on above: Order Comment: Speci men Type: ARTERIAL BLOOD SPECIMENOrdering Facility: [facility] Address: [address] [place] [address] Performed By: #### A LLBG ####[facility] LABORATORYCLIA [id number] [address] [place] CO2 [Moles/Vol] 24.6 mmol/L Normal 22-28 [facility] Comment on above: Order Comment: Speci men Type: ARTERIAL BLOOD SPECIMENOrdering Facility: [facility] Address: [address] [place] [address] Performed By: #### A LLBG ####[facility] LABORATORYCLIA [id number] [address] [place] CO2 adjusted to patient's actual temperature (Bld) [Partial pressure] 38 mmHg Normal 36-46 [facility] Comment on above: Order Comment: Speci men Type: ARTERIAL BLOOD SPECIMENOrdering Facility: [facility] Address: [address] [place] [address] Performed By: #### A LLBG ####[facility]ORATORYCLIA [id number] [place] [address] [place] FIO2 100 % Normal [facility] Comment on above: Order Comment: Speci men Type: ARTERIAL BLOOD SPECIMENOrdering Facility: [facility] Address: [address] [address] Performed By: #### A LLBG ####[facility] LABORATORYCLIA [id number] [address] [place] Glucose [Mass/Vol] 159 mg/dL High 60-105 [facility] Comment on above: Order Comment: Speci men Type: ARTERIAL BLOOD SPECIMENOrdering Facility: [facility] Address: [address] [address] Performed By: #### A LLBG ####[facility]ORATORYCLIA [id number] [place] [address] [place] HCO3 (Bld) [Moles/Vol] 27 mmol/L High 22-26 [facility] Comment on above: Order Comment: Speci men Type: ARTERIAL BLOOD SPECIMENOrdering Facility: [facility] Address: [address] [address] Performed By: #### A LLBG ####[facility] LABORATORYCLIA [id number] [address] [place] Hematocrit (Bld) [Volume fraction] 31.0 % Low 39.0-51.0 [facility] Comment on above: Order Comment: Speci men Type: ARTERIAL BLOOD SPECIMENOrdering Facility: [facility] Address: [address] [address] Performed By: #### A LLBG ####[facility]ORATORYCLIA [id number] [address] [place] Hemoglobin (Bld) [Mass/Vol] 10.0 g/dL Low 13.0-17.0 [facility] Comment on above: Order Comment: Speci men Type: ARTERIAL BLOOD SPECIMENOrdering Facility: [facility] Address: [address] [address] Performed By: #### A LLBG ####[facility]ATORYCLIA [id number] [address] Methemoglobin (Bld) [Mass fraction] % Normal 0.0-1.5 [facility] Comment on above: Order Comment: Speci men Type: ARTERIAL BLOOD SPECIMENOrdering Facility: [facility] Address: [address] [address] Performed By: #### A LLBG ####[facility]ATORYCLIA [id number] [address] O2 THERAPY Ventilator Normal [facility] Comment on above: Order Comment: Speci men Type: ARTERIAL BLOOD SPECIMENOrdering Facility: [facility] Address: [address] [address] Performed By: #### A LLBG ####[facility]ATORYCLIA [id number] [address] Oxygen (Bld) [Partial pressure] 279 mm Hg High 85-95 [facility] Comment on above: Order Comment: Speci men Type: ARTERIAL BLOOD SPECIMENOrdering Facility: [facility] Address: [facility] [place] [address] Performed By: #### A LLBG ####[facility]ATORYCLIA [id number] [address] Oxygen adjusted to patient's actual temperature (Bld) [Partial pressure] 281 mmHg High 85-95 [facility] Comment on above: Order Comment: Speci men Type: ARTERIAL BLOOD SPECIMENOrdering Facility: [facility] Address: [address] [address] Performed By: #### A LLBG ####[facility]ATORYCLIA [id number] [address] [place] OXYGEN SATURATION, ARTERIAL 100 % High 95-98 [facility] Comment on above: Order Comment: Speci men Type: ARTERIAL BLOOD SPECIMENOrdering Facility: [facility] Address: [address] [address] Performed By: #### A LLBG ####[facility]ATORYCLIA [id number] [address] Oxyhemoglobin (BldA) [Mass fraction] 98 % Normal 95-98 [facility] Comment on above: Order Comment: Speci men Type: ARTERIAL BLOOD SPECIMENOrdering Facility: [facility] Address: [address] [place] [address] Performed By: #### A LLBG ####[facility]ORATORYCLIA [id number] [address] [place] pH (Bld) 7.47 [pH] High 7.35-7.45 [facility] Comment on above: Order Comment: Speci men Type: ARTERIAL BLOOD SPECIMENOrdering Facility: [facility] Address: [address] [place] [address] Performed By: #### A LLBG ####[facility]ORATORYCLIA [id number] [address] pH adjusted to patient's actual temperature (Bld) 7.46 High 7.35-7.45 [facility] Comment on above: Order Comment: Speci men Type: ARTERIAL BLOOD SPECIMENOrdering Facility: [facility] Address: [address] [place] [address] Performed By: #### A LLBG ####[facility]ORATORYCLIA [id number] [address] [place] Potassium [Moles/Vol] 3.6 mmol/L Normal 3.5-5.0 [facility] Comment on above: Order Comment: Speci men Type: ARTERIAL BLOOD SPECIMENOrdering Facility: [facility] Address: [address] [place] [address] Performed By: #### A LLBG ####[facility]ORATORYCLIA [id number] [address] [place] Sodium [Moles/Vol] 162 mmol/L High 136-144 [facility] Comment on above: Order Comment: Speci men Type: ARTERIAL BLOOD SPECIMENOrdering Facility: [facility] Address: [address] [place] [address] Performed By: #### A LLBG ####[facility]ORATORYCLIA [id number] [address] Base excess Calc (Bld) [Moles/Vol] 4 mmol/L High 0-2 [facility] Comment on above: Order Comment: Speci men Type: ARTERIAL BLOOD SPECIMENOrdering Facility: [facility] Address: [address] [place] [address] Performed By: #### A LLBG ####[facility]ORATORYCLIA [id number] [address] Body temperature 100.58 [degF] Normal [facility] Comment on above: Order Comment: Speci men Type: ARTERIAL BLOOD SPECIMENOrdering Facility: [facility] Address: [address] [place] [address] Performed By: #### A LLBG ####[facility]ORATORYCLIA [id number] [address] [place] CALCIUM IONIZED, PH CORRECTED 1.34 mmol/L High 1.08-1.30 [facility] Comment on above: Order Comment: Speci men Type: ARTERIAL BLOOD SPECIMENOrdering Facility: [facility] Address: [address] [place] [address] Performed By: #### A LLBG ####[facility]ORATORYCLIA [id number] [address] [place] Calcium.ionized (BldV) [Mass/Vol] 1.33 mmol/L High 1.08-1.30 [facility] Comment on above: Order Comment: Speci men Type: ARTERIAL BLOOD SPECIMENOrdering Facility: [facility] Address: [address] [place] [address] Performed By: #### A LLBG ####[facility]ORATORYCLIA [id number] [address] [place] Carboxyhemoglobin (BldA) [Mass fraction] 1.5 % Normal 0.0-2.0 [facility] Comment on above: Order Comment: Speci men Type: ARTERIAL BLOOD SPECIMENOrdering Facility: [facility] Address: [address] [address] Result Comment: Carb oxyhemoglobin Reference Range for Smokers: 2.0-8.0% Performed By: #### A LLBG ####[facility]ATORYCLIA [id number] [address] [place] CO2 (Bld) [Partial pressure] 46 mm Hg Normal 36-46 [facility] Comment on above: Order Comment: Speci men Type: ARTERIAL BLOOD SPECIMENOrdering Facility: [facility] Address: [address] [place] [address] Performed By: #### A LLBG ####[facility]ATORYCLIA [id number] [address] [place] CO2 [Moles/Vol] 26.4 mmol/L Normal 22-28 [facility] Comment on above: Order Comment: Speci men Type: ARTERIAL BLOOD SPECIMENOrdering Facility: [facility] Address: [address] [place] [address] Performed By: #### A LLBG ####[facility]ORATORYCLIA [id number] [address] [place] CO2 adjusted to patient's actual temperature (Bld) [Partial pressure] 48 mmHg High 36-46 [facility] Comment on above: Order Comment: Speci men Type: ARTERIAL BLOOD SPECIMENOrdering Facility: [facility] Address: [address] [address] Performed By: #### A LLBG ####[facility]ATORYCLIA [id number] [address] [place] FIO2 100 % Normal [facility] Comment on above: Order Comment: Speci men Type: ARTERIAL BLOOD SPECIMENOrdering Facility: [facility] Address: [address] [address] Performed By: #### A LLBG ####[facility]ORYCLIA [id number] [address] [place] Glucose [Mass/Vol] 132 mg/dL High 60-105 [facility] Comment on above: Order Comment: Speci men Type: ARTERIAL BLOOD SPECIMENOrdering Facility: [facility] Address: [address] [place] [address] Performed By: #### A LLBG ####[facility]ORATORYCLIA [id number] [place] [address] [place] HCO3 (Bld) [Moles/Vol] 29 mmol/L High 22-26 [facility] Comment on above: Order Comment: Speci men Type: ARTERIAL BLOOD SPECIMENOrdering Facility: [facility] Address: [address] [place] [address] Performed By: #### A LLBG ####[facility]ORATORYCLIA [id number] [address] [place] Hematocrit (Bld) [Volume fraction] 32.3 % Low 39.0-51.0 [facility] Comment on above: Order Comment: Speci men Type: ARTERIAL BLOOD SPECIMENOrdering Facility: [facility] Address: [address] [place] [address] Performed By: #### A LLBG ####[facility]ORATORYCLIA [id number] [address] [place] Hemoglobin (Bld) [Mass/Vol] 10.4 g/dL Low 13.0-17.0 [facility] Comment on above: Order Comment: Speci men Type: ARTERIAL BLOOD SPECIMENOrdering Facility: [facility] Address: [address] [place] [address] Performed By: #### A LLBG ####[facility]ATORYCLIA [id number] [address] [place] Methemoglobin (Bld) [Mass fraction] % Normal 0.0-1.5 [facility] Comment on above: Order Comment: Speci men Type: ARTERIAL BLOOD SPECIMENOrdering Facility: [facility] Address: [address] [address] Performed By: #### A LLBG ####[facility]ATORYCLIA [id number] [address] O2 THERAPY NR=Non-Rebreather Mask Normal [facility] Comment on above: Order Comment: Speci men Type: ARTERIAL BLOOD SPECIMENOrdering Facility: [facility] Address: [address] [place] [address] Performed By: #### A LLBG ####[facility]ATORYCLIA [id number] [address] Oxygen (Bld) [Partial pressure] 130 mm Hg High 85-95 [facility] Comment on above: Order Comment: Speci men Type: ARTERIAL BLOOD SPECIMENOrdering Facility: [facility] Address: [address] [place] [address] Performed By: #### A LLBG ####[facility]ATORYCLIA [id number] [address] Oxygen adjusted to patient's actual temperature (Bld) [Partial pressure] 136 mmHg High 85-95 [facility] Comment on above: Order Comment: Speci men Type: ARTERIAL BLOOD SPECIMENOrdering Facility: [facility] Address: [address] [place] [address] Performed By: #### A LLBG ####[facility]ATORYCLIA [id number] [address] [place] OXYGEN SATURATION, ARTERIAL 99 % High 95-98 [facility] Comment on above: Order Comment: Speci men Type: ARTERIAL BLOOD SPECIMENOrdering Facility: [facility] Address: [address] [address] Performed By: #### A LLBG ####[facility]ORYCLIA [id number] [address] Oxyhemoglobin (BldA) [Mass fraction] 97 % Normal 95-98 [facility] Comment on above: Order Comment: Speci men Type: ARTERIAL BLOOD SPECIMENOrdering Facility: [facility] Address: [address] [place] [address] Performed By: #### A LLBG ####[facility]ATORYCLIA [id number] [address] [place] pH (Bld) 7.41 [pH] Normal 7.35-7.45 [facility] Comment on above: Order Comment: Speci men Type: ARTERIAL BLOOD SPECIMENOrdering Facility: [facility] Address: [address] [place] [address] Performed By: #### A LLBG ####[facility]ATORYCLIA [id number] [address] pH adjusted to patient's actual temperature (Bld) 7.40 Normal 7.35-7.45 [facility] Comment on above: Order Comment: Speci men Type: ARTERIAL BLOOD SPECIMENOrdering Facility: [facility] Address: [address] [place] [address] Performed By: #### A LLBG ####[facility]ATORYCLIA [id number] [address] [place] Potassium [Moles/Vol] 3.8 mmol/L Normal 3.5-5.0 [facility] Comment on above: Order Comment: Speci men Type: ARTERIAL BLOOD SPECIMENOrdering Facility: [facility] Address: [address] [place] [address] Performed By: #### A LLBG ####[facility]ATORYCLIA [id number] [address] [place] Sodium [Moles/Vol] 166 mmol/L High 136-144 [facility] Comment on above: Order Comment: Speci men Type: ARTERIAL BLOOD SPECIMENOrdering Facility: [facility] Address: [address] [place] [address] Performed By: #### A LLBG ####[facility]ATORYCLIA [id number] [place] [address] [place] Bacteria Bld Culton 06-15-19 22 Bacteria identified Cx Nom (Bld) CULTURE, BLOOD: No growth 5 days Normal [facility] Comment on above: Performed By: #### 6 00-7 ####[facility]ATORYCLIA [id number] [address] OF [facility] Basic metabolic 2000 panelon 06-15-2021 Anion gap [Moles/Vol] 9 mmol/L Normal 9-18 [facility] Comment on above: Order Comment: Speci men Type: BLOOD SPECIMEN Performed By: #### 2 4321-2, 2776-05, ####[facility]ATORYCLIA [id number] [address] [place] Calcium [Mass/Vol] 9.0 mg/dL Normal 8.5-10.2 [facility] Comment on above: Order Comment: Speci men Type: BLOOD SPECIMEN Performed By: #### 2 4321-2, 2776-05, ####[facility]ORYCLIA [id number] [address] STATES OF [facility] Chloride [Moles/Vol] 125 mmol/L High 97-105 [facility] Comment on above: Order Comment: Speci men Type: BLOOD SPECIMEN Performed By: #### 2 4321-2, 2776-05, ####[facility]ORYCLIA [id number] [address] [place] CO2 [Moles/Vol] 29 mmol/L Normal 22-30 [facility] Comment on above: Order Comment: Speci men Type: BLOOD SPECIMEN Performed By: #### 2 4321-2, 2776-05, ####[facility]ORYCLIA [id number] [address] [place] Creatinine [Mass/Vol] 0.81 mg/dL Normal 0.73-1.22 [facility] Comment on above: Order Comment: Speci men Type: BLOOD SPECIMEN Performed By: #### 2 4321-2, 2776-05, ####[facility] LABORATORYCLIA [id number] [place] [address] [place] GFR/1.73 sq M.predicted MDRD (S/P/Bld) [Vol rate/Area] mL/min/{1.73_m2} Normal [facility] Comment on above: [...] GFR. Performed By: #### 2 4321-2, 2777-1, 82008-7 ####[facility]ATORYCLIA [id number] [place] [address] [place] Glucose [Mass/Vol] 124 mg/dL High 74-99 [facility] Comment on above: Order Comment: Speci men Type: BLOOD SPECIMEN Result Comment: The [place] [employer] (ADA) provides guidance for cutoff [...] Standards of Medical Care in Diabetes 2016, [employer]. Diabetes Care. 2016.39(Suppl 1). Performed By: #### 2 4321-2, 2777-1, 17979-2 ####[facility]ATORYCLIA [id number] [place] [address] [place] Potassium [Moles/Vol] 3.8 mmol/L Normal 3.7-5.1 [facility] Comment on above: Order Comment: Speci men Type: BLOOD SPECIMEN Performed By: #### 2 4321-2, 2776-, ####[facility]ATORYCLIA [id number] [place], [place] [id number] [place] [address] Sodium [Moles/Vol] 163 mmol/L High 136-144 [facility] Comment on above: Order Comment: Speci men Type: BLOOD SPECIMEN Performed By: #### 2 4321-2, 2776-, ####[facility]ORYCLIA [id number] [address] Urea nitrogen [Mass/Vol] 35 mg/dL High 9-24 [facility] Comment on above: Order Comment: Speci men Type: BLOOD SPECIMEN Performed By: #### 2 4321-2, 277-, ####[facility]ORYCLIA [id number] [address] CBC panel Auto (Bld)on 06-15 Erythrocyte distribution width (RBC) [Ratio] 16.3 % High 11.5-15.0 [facility] Comment on above: Order Comment: Speci men Type: BLOOD SPECIMENOrdering Facility: [facility] Address: [address] [place] [address] Performed By: #### 5 8410-2 ####[facility]ATORYCLIA [id number] [address] Hematocrit (Bld) [Volume fraction] 30.0 % Low 39.0-51.0 [facility] Comment on above: Order Comment: Speci men Type: BLOOD SPECIMENOrdering Facility: [facility] Address: [address] [place] [address] Performed By: #### 5 8410-2 ####[facility]ATORYCLIA [id number] [address] Hemoglobin (Bld) [Mass/Vol] 8.9 g/dL Low 13.0-17.0 [facility] Comment on above: Order Comment: Speci men Type: BLOOD SPECIMENOrdering Facility: [facility] Address: [address] [place] [address] Performed By: #### 5 8410-2 ####[facility]ATORYCLIA [id number] [address] MCH (RBC) [Entitic mass] 28.7 pg Normal 26.0-34.0 [facility] Comment on above: Order Comment: Speci men Type: BLOOD SPECIMENOrdering Facility: [facility] Address: [address] [place] [address] Performed By: #### 5 8410-2 ####[facility]ATORYCLIA [id number] [address] MCHC (RBC) [Mass/Vol] 29.7 g/dL Low 30.5-36.0 [facility] Comment on above: Order Comment: Speci men Type: BLOOD SPECIMENOrdering Facility: [facility] Address: [address] [place] [address] Performed By: #### 5 8410-2 ####[facility]ATORYCLIA [id number] [address] MCV (RBC) [Entitic vol] 96.8 fL Normal 80.0-100.0 [facility] Comment on above: Order Comment: Speci men Type: BLOOD SPECIMENOrdering Facility: [facility] Address: [address] [place] [address] Performed By: #### 5 8410-2 ####[facility]ATORYCLIA [id number] [address] Nucleated RBC (Bld) [#/Vol] 10*3/uL Normal <0.01 [facility] Comment on above: Order Comment: Speci men Type: BLOOD SPECIMENOrdering Facility: [facility] Address: [address] [place] [address] Performed By: #### 5 8410-2 ####[facility]ATORYCLIA [id number] [address] [place] Platelet mean volume (Bld) [Entitic vol] 12.3 fL Normal 9.0-12.7 [facility] Comment on above: Order Comment: Speci men Type: BLOOD SPECIMENOrdering Facility: [facility] Address: [address] [place] [address] Performed By: #### 5 8410-2 ####[facility]ATORYCLIA [id number] [address] [place] Platelets (Bld) [#/Vol] 226 10*3/uL Normal 150-400 [facility] Comment on above: Order Comment: Speci men Type: BLOOD SPECIMENOrdering Facility: [facility] Address: [address] [place] [address] Performed By: #### 5 8410-2 ####[facility]ATORYCLIA [id number] [address] [place] RBC (Bld) [#/Vol] 3.10 10*6/uL Low 4.20-6.00 [facility] Comment on above: Order Comment: Speci men Type: BLOOD SPECIMENOrdering Facility: [facility] Address: [address] [place] [address] Performed By: #### 5 8410-2 ####[facility]ATORYCLIA [id number] [address] [place] WBC (Bld) [#/Vol] 10.77 10*3/uL Normal 3.70-11.00 [facility] Comment on above: Order Comment: Speci men Type: BLOOD SPECIMENOrdering Facility: [facility] Address: [address] [place] [address] Performed By: #### 5 8410-2 ####[facility]ATORYCLIA [id number] [address] [place] Erythrocyte distribution width (RBC) [Ratio] 16.2 % High 11.5-15.0 [facility] Comment on above: Order Comment: Speci men Type: BLOOD SPECIMENOrdering Facility: [facility] Address: [address] [place] [address] Performed By: #### 5 8410-2 ####[facility]ATORYCLIA [id number] [address] Hematocrit (Bld) [Volume fraction] 34.8 % Low 39.0-51.0 [facility] Comment on above: Order Comment: Speci men Type: BLOOD SPECIMENOrdering Facility: [facility] Address: [address] [place] [address] Performed By: #### 5 8410-2 ####[facility]ATORYCLIA [id number] [address] OF [facility] Hemoglobin (Bld) [Mass/Vol] 10.0 g/dL Low 13.0-17.0 [facility] Comment on above: Order Comment: Speci men Type: BLOOD SPECIMENOrdering Facility: [facility] Address: [address] [place] [address] Performed By: #### 5 8410-2 ####[facility]ATORYCLIA [id number] [address] MCH (RBC) [Entitic mass] 27.5 pg Normal 26.0-34.0 [facility] Comment on above: Order Comment: Speci men Type: BLOOD SPECIMENOrdering Facility: [facility] Address: [address] [place] [address] Performed By: #### 5 8410-2 ####[facility] LABORATORYCLIA [id number] [address] [place] MCHC (RBC) [Mass/Vol] 28.7 g/dL Low 30.5-36.0 [facility] Comment on above: Order Comment: Speci men Type: BLOOD SPECIMENOrdering Facility: [facility] Address: [address] [place] [address] Performed By: #### 5 8410-2 ####[facility] LABORATORYCLIA [id number] [address] MCV (RBC) [Entitic vol] 95.6 fL Normal 80.0-100.0 [facility] Comment on above: Order Comment: Speci men Type: BLOOD SPECIMENOrdering Facility: [facility] Address: [address] [place] [address] Performed By: #### 5 8410-2 ####[facility] LABORATORYCLIA [id number] [address] Nucleated RBC (Bld) [#/Vol] 10*3/uL Normal <0.01 [facility] Comment on above: Order Comment: Speci men Type: BLOOD SPECIMENOrdering Facility: [facility] Address: [address] [place] [address] Performed By: #### 5 8410-2 ####[facility] LABORATORYCLIA [id number] [address] Platelet mean volume (Bld) [Entitic vol] 11.9 fL Normal 9.0-12.7 [facility] Comment on above: Order Comment: Speci men Type: BLOOD SPECIMENOrdering Facility: [facility] Address: [address] [place] [address] Performed By: #### 5 8410-2 ####[facility] LABORATORYCLIA [id number] [address] Platelets (Bld) [#/Vol] 246 10*3/uL Normal 150-400 [facility] Comment on above: Order Comment: Speci men Type: BLOOD SPECIMENOrdering Facility: [facility] Address: [address] [place] [address] Performed By: #### 5 8410-2 ####[facility] LABORATORYCLIA [id number] [address] RBC (Bld) [#/Vol] 3.64 10*6/uL Low 4.20-6.00 [facility] Comment on above: Order Comment: Speci men Type: BLOOD SPECIMENOrdering Facility: [facility] Address: [address] [place] [address] Performed By: #### 5 8410-2 ####[facility] LABORATORYCLIA [id number] [address] WBC (Bld) [#/Vol] 11.45 10*3/uL High 3.70-11.00 [facility] Comment on above: Order Comment: Speci men Type: BLOOD SPECIMENOrdering Facility: [facility] Address: [address] [place] [address] Performed By: #### 5 8410-2 ####[facility]ORATORYCLIA [id number] [address] Erythrocyte distribution width (RBC) [Ratio] 15.9 % High 11.5-15.0 [facility] Comment on above: Order Comment: Speci men Type: BLOOD SPECIMEN Performed By: #### 5 8410-2 ####[facility] LABORATORYCLIA [id number] [address] Hematocrit (Bld) [Volume fraction] 35.8 % Low 39.0-51.0 [facility] Comment on above: Order Comment: Speci men Type: BLOOD SPECIMEN Performed By: #### 5 8410-2 ####[facility]ORATORYCLIA [id number] [address] Hemoglobin (Bld) [Mass/Vol] 10.4 g/dL Low 13.0-17.0 [facility] Comment on above: Order Comment: Speci men Type: BLOOD SPECIMEN Performed By: #### 5 8410-2 ####[facility]ORATORYCLIA [id number] [address] MCH (RBC) [Entitic mass] 28.0 pg Normal 26.0-34.0 [facility] Comment on above: Order Comment: Speci men Type: BLOOD SPECIMEN Performed By: #### 5 8410-2 ####[facility]ORATORYCLIA [id number] MCHC (RBC) [Mass/Vol] 29.1 g/dL Low 30.5-36.0 [facility] Comment on above: Order Comment: Speci men Type: BLOOD SPECIMEN Performed By: #### 5 8410-2 ####[facility]ATORYCLIA [id number] [address] MCV (RBC) [Entitic vol] 96.2 fL Normal 80.0-100.0 [facility] Comment on above: Order Comment: Speci men Type: BLOOD SPECIMEN Performed By: #### 5 8410-2 ####[facility]ORATORYCLIA [id number] [address] Nucleated RBC (Bld) [#/Vol] 10*3/uL Normal <0.01 [facility] Comment on above: Order Comment: Speci men Type: BLOOD SPECIMEN Performed By: #### 5 8410-2 ####[facility]ORATORYCLIA [id number] [address] Platelet mean volume (Bld) [Entitic vol] 11.6 fL Normal 9.0-12.7 [facility] Comment on above: Order Comment: Speci men Type: BLOOD SPECIMEN Performed By: #### 5 8410-2 ####[facility]ORATORYCLIA [id number] [address] Platelets (Bld) [#/Vol] 265 10*3/uL Normal 150-400 [facility] Comment on above: Order Comment: Speci men Type: BLOOD SPECIMEN Performed By: #### 5 8410-2 ####[facility]ATORYCLIA [id number] [address] RBC (Bld) [#/Vol] 3.72 10*6/uL Low 4.20-6.00 [facility] Comment on above: Order Comment: Speci men Type: BLOOD SPECIMEN Performed By: #### 5 8410-2 ####[facility] LABORATORYCLIA [id number] [place] [address] [place] WBC (Bld) [#/Vol] 12.24 10*3/uL High 3.70-11.00 [facility] Comment on above: Order Comment: Speci men Type: BLOOD SPECIMEN Performed By: #### 5 8410-2 ####[facility]ORATORYCLIA [id number] [address] [place] CONSULTon 06-15-2021 CONSULT Normal [facility] CONSULT Normal [facility] CONSULT Normal [facility] CT BRAIN WO IVCONon 06-15-19 CT BRAIN WO IVCON Normal [facility] CT CHEST W IVCON PEon 2021 CT CHEST W IVCON PE Invalid Interpretation Code [facility] Chloride Unsp time (U) [Mole s/Vol]on 06-15-2021 Chloride (U) [Moles/Vol] 28 mmol/L Normal 16-250 [facility] Comment on above: Order Comment: Speci men Type: URINE SPECIMENOrdering Facility: [facility] Address: [address] [place] [address] Performed By: #### U TPR, 62779-6, 48232-4, 28714-0 ####[facility] LABORATORYCLIA [id number] [address] OF [facility] Comprehensive metabolic 2000 panelon 06-15-2021 Albumin [Mass/Vol] 2.8 g/dL Low 3.9-4.9 [facility] Comment on above: Order Comment: Speci men Type: BLOOD SPECIMENOrdering Facility: [facility] Address: [address] [address] Performed By: #### 2 4323-8 ####[facility]ORATORYCLIA [id number] [address] ALP [Catalytic activity/Vol] 74 U/L Normal 38-113 [facility] Comment on above: Order Comment: Speci men Type: BLOOD SPECIMENOrdering Facility: [facility] Address: [address] [address] Performed By: #### 2 4323-8 ####[facility]ORATORYCLIA [id number] [address] STATES OF [facility] ALT With P-5'-P [Catalytic activity/Vol] 50 U/L Normal 10-54 [facility] Comment on above: Order Comment: Speci men Type: BLOOD SPECIMENOrdering Facility: [facility] Address: [address] [place] [address] Performed By: #### 2 4323-8 ####[facility]ORATORYCLIA [id number] [address] STATES OF [facility] Anion gap [Moles/Vol] 12 mmol/L Normal 9-18 [facility] Comment on above: Order Comment: Speci men Type: BLOOD SPECIMENOrdering Facility: [facility] Address: [address] [place] [address] Performed By: #### 2 4323-8 ####[facility]ORATORYCLIA [id number] [address] AST With P-5'-P [Catalytic activity/Vol] 36 U/L Normal 14-40 [facility] Comment on above: Order Comment: Speci men Type: BLOOD SPECIMENOrdering Facility: [facility] Address: [address] [place] [address] Performed By: #### 2 4323-8 ####[facility]ORATORYCLIA [id number] [address] OF [facility] Bilirubin [Mass/Vol] 0.5 mg/dL Normal 0.2-1.3 [facility] Comment on above: Order Comment: Speci men Type: BLOOD SPECIMENOrdering Facility: [facility] Address: [address] [place] [address] Performed By: #### 2 4323-8 ####[facility]ORATORYCLIA [id number] [address] [place] Calcium [Mass/Vol] 8.8 mg/dL Normal 8.5-10.2 [facility] Comment on above: Order Comment: Speci men Type: BLOOD SPECIMENOrdering Facility: [facility] Address: [address] [place] [address] Performed By: #### 2 4323-8 ####[facility]ORATORYCLIA [id number] [place] [address] [place] Chloride [Moles/Vol] 126 mmol/L High 97-105 [facility] Comment on above: Order Comment: Speci men Type: BLOOD SPECIMENOrdering Facility: [facility] Address: [address] [place] [address] Performed By: #### 2 4323-8 ####[facility]ORATORYCLIA [id number] [place] [address] [place] CO2 [Moles/Vol] 24 mmol/L Normal 22-30 [facility] Comment on above: Order Comment: Speci men Type: BLOOD SPECIMENOrdering Facility: [facility] Address: [address] [place] [address] Performed By: #### 2 4323-8 ####[facility] LABORATORYCLIA [id number] [place] [address] [place] Creatinine [Mass/Vol] 0.84 mg/dL Normal 0.73-1.22 [facility] Comment on above: Order Comment: Speci men Type: BLOOD SPECIMENOrdering Facility: [facility] Address: [address] [place] [address] Performed By: #### 2 4323-8 ####[facility]ORATORYCLIA [id number] [place] [address] [place] GFR/1.73 sq M.predicted MDRD (S/P/Bld) [Vol rate/Area] mL/min/{1.73_m2} Normal [facility] Comment on above: Order Comment: Speci men Type: BLOOD SPECIMENOrdering Facility: [facility] Address: [address] [place] [address] Result Comment: >60e GFR (Estimated GFR) Units of measure: mL/min/1.73 meters squaredeGFR is derived from the reexpressed MDRD Study equation using the following parameters: serum creatinine, age, gender and race. The creatinine assay has been calibrated to be traceable to IDNC. An eGFR <60 mL/min/1.73m2 for >3 months is consistent with chronic kidney disease. Refer to KDOQI guidelines for clinical interpretation. In patients with unstable renal function, e.g. those with acute kidney injury, the eGFR may not accurately reflect actual GFR. Performed By: #### 2 4323-8 ####[facility]ORATORYCLIA [id number] [place] [address] [place] Glucose [Mass/Vol] 142 mg/dL High 74-99 [facility] Comment on above: Order Comment: Shira feldman Type: BLOOD SPECIMENOrdering Facility: [facility] Address: [address] [place] [address] Result Comment: The [place] Diabetes Association (ADA) provides guidance for cutoff [...] Standards of Medical Care in Diabetes 2016, [place] Diabetes Association. Diabetes Care. 2016.39(Suppl 1). Performed By: #### 2 4323-8 ####[facility] LABORATORYCLIA [id number] [place] [id number] [place] Potassium [Moles/Vol] 3.8 mmol/L Normal 3.7-5.1 [facility] Comment on above: Order Comment: Shira feldman Type: BLOOD SPECIMENOrdering Facility: [facility] Address: [address] [phone] Performed By: #### 2 4323-8 ####[facility] LABORATORYCLIA [id number] [place] [address] [place] Protein [Mass/Vol] 6.1 g/dL Low 6.3-8.0 [facility] Comment on above: Order Comment: Speci men Type: BLOOD SPECIMENOrdering Facility: [facility] Address: [address] [place] [address] Performed By: #### 2 4323-8 ####[facility]ORATORYCLIA [id number] [address] [place] Sodium [Moles/Vol] 162 mmol/L High 136-144 [facility] Comment on above: Order Comment: Speci men Type: BLOOD SPECIMENOrdering Facility: [facility] Address: [address] [place] [address] Performed By: #### 2 4323-8 ####[facility]ORATORYCLIA [id number] [address] STATES OF [facility] Urea nitrogen [Mass/Vol] 33 mg/dL High 9-24 [facility] Comment on above: Order Comment: Speci men Type: BLOOD SPECIMENOrdering Facility: [facility] Address: [address] [place] [address] Performed By: #### 2 4323-8 ####[facility]ORATORYCLIA [id number] [address] [place] Creatinine Unsp time (U) [Ma ss/Vol]on 06-15-2021 Creatinine (U) [Mass/Vol] 87.0 mg/dL Normal 46.8-314.5 [facility] Comment on above: Order Comment: Speci men Type: URINE SPECIMENOrdering Facility: [facility] Address: [address] [place] [address] Performed By: #### U TPR, 74468-4, 96492-5, 11535-1 ####[facility] LABORATORYCLIA [id number] [address] [place] HIGH SENSITIVITY TROPONIN To n 06-15-2021 HIGH SENSITIVITY TAMIKO 23 ng/L High <12 [facility] Comment on above: Order Comment: Speci men Type: BLOOD SPECIMENOrdering Facility: [facility] Address: [address] [address] Result Comment: When assessing risk for acute [...] day MACE. Performed By: #### P JULIANNE, 52771-7, HSTNT ####[facility] LABORATORYCLIA [id number] [place] [address] [place] [facility] Lactate (Bld) [Moles/Vol]on 06-15-2021 Lactate [Moles/Vol] 0.8 mmol/L Normal 0.5-2.2 [facility] Comment on above: Order Comment: Speci men Type: BLOOD SPECIMENOrdering Facility: [facility] Address: [address] [place] [address] Performed By: #### 3 2693-4 ####[facility]ITALCLIA [id number] [place] [address] [place] [facility] Magnesium [facility] Magnesium [Mass/Vol] 3.0 mg/dL High 1.7-2.3 [facility] Comment on above: Order Comment: Speci men Type: BLOOD SPECIMEN Performed By: #### 2 4321-2, 2777-1, 00321-7 ####[facility]PITALCLIA [id number] [address] [place] NT-proBNP SerPl-mCncon 06-15 Natriuretic peptide.B prohormone N-Terminal [Mass/Vol] 265 pg/mL High <125 [facility] Comment on above: Order Comment: Speci men Type: BLOOD SPECIMENOrdering Facility: [facility] Address: [address] [place] [address] Performed By: #### P ROCAL, 94515-5, HSTNT ####[facility]ITALCLIA [id number] [address] [place] Osmolality Uron 06-15-2021 Osmolality (U) [Osmolality] 606 mosm/kg Normal 50-1,200 [facility] Comment on above: Order Comment: Speci men Type: URINE SPECIMENOrdering Facility: [facility] Address: [address] [place] [address] Performed By: #### 2 695-5 ####[facility] LABORATORYCLIA [id number] [address] [place] PROCALCITONIN (LAB)on 2021 Procalcitonin [Mass/Vol] 0.21 ng/mL High <0.09 [facility] Comment on above: Order Comment: Speci men Type: BLOOD SPECIMENOrdering Facility: [facility] Address: [address] [place] [address] Result Comment: For a guided interpretation of test results, please visit the Change in Procalcitonin Calculator, [email or web address]. Performed By: #### P JULIANNE, 2951-2 ####[facility] LABORATORYCLIA [id number] [address] STATES [facility] Procalcitonin [Mass/Vol] 0.17 ng/mL High <0.09 [facility] Comment on above: Order Comment: Speci men Type: BLOOD SPECIMENOrdering Facility: [facility] Address: [address] [place] [address] Result Comment: For a guided interpretation of test results, please visit the Change in Procalcitonin Calculator, [email or web address]. Performed By: #### P JULIANNE, 45761-1, HSTNT ####[facility] LABORATORYCLIA [id number] [address] STATES [facility] PROTEIN RANDOM URon 06-15-19 22 Protein (U) [Mass/Vol] 175 mg/dL High 0-20 [facility] Comment on above: Order Comment: Speci men Type: URINE SPECIMENOrdering Facility: [facility] Address: [address] [place] [address] Performed By: #### U TPR, 50030-1, 72938-4, 13393-8 ####[facility]ORATORYCLIA [id number] [address] PT panel Coag (PPP)on 2021 INR Coag (PPP) [Relative time] 1.1 {INR} Normal <1.4 [facility] Comment on above: Order Comment: Speccara feldman Type: BLOOD SPECIMENOrdering Facility: [facility] Address: [address] [place] [address] Result Comment: Yris min K Antagonist (VKA) Therapeutic Range: INR 2 to 3 (Target INR of 2.5)Note: For patients treated with VKA drugs, such as warfarin, the [place] [employer] 2012 Guideline recommends [...] al. Chest 2012, 141:7S-47SAlba RA, et al. [facility] 2017, 70: 252-289 Performed By: #### 3 4528-0, 06952-8 ####[facility] LABORATORYCLIA [id number] [address] [place] [id number] [place] PT Coag (PPP) [Time] 11.4 s Normal <13.1 [facility] Comment on above: Order Comment: Shira feldman Type: BLOOD SPECIMENOrdering Facility: [facility] Address: [address] [phone] Performed By: #### 3 4528-0, 79356-7 ####[facility]ORATORYCLIA [id number] [place] [id number] [facility] [place] Phosphate SerPl-mCncon 06-15 Phosphate [Mass/Vol] 2.6 mg/dL Low 2.7-4.8 [facility] Comment on above: Order Comment: Speci men Type: BLOOD SPECIMEN Performed By: #### 2 4321-2, 2777-1, 57602-8 ####[facility] LABORATORYCLIA [id number] [place] [address] [place] Sodium ?Tm Ur-sCncon 022 Sodium Unsp time (U) [Moles/Vol] 34 mmol/L Normal 14-216 [facility] Comment on above: Order Comment: Speci men Type: URINE SPECIMENOrdering Facility: [facility] Address: [address] [place] [address] Performed By: #### U TPR, 40217-7, 99806-2, 61200-9 ####[facility]ORATORYCLIA [id number] [address] Sodium SerPl-sCncon 06-15-19 22 Sodium [Moles/Vol] 159 mmol/L High 136-144 [facility] Comment on above: Order Comment: Speci men Type: BLOOD SPECIMENOrdering Facility: [facility] Address: [address] [place] [address] Performed By: #### P ROCAL, 2951-2 ####[facility]ORATORYCLIA [id number] [address] [place] THERAPY NTon 06-15-2021 THERAPY NT Normal [facility] Urinalysis complete panel (U )on 06-15-2021 Bacteria LM.HPF (Urine sed) [#/Area] None Seen Normal None Seen [facility] Comment on above: Order Comment: Speci men Type: URINE SPECIMENOrdering Facility: [facility] Address: [address] [place] [address] Performed By: #### 2 4356-8 ####[facility]ORATORYCLIA [id number] [address] Bilirubin Ql (U) Negative Normal Negative [facility] Comment on above: Order Comment: Speci men Type: URINE SPECIMENOrdering Facility: [facility] Address: [address] [place] [address] Performed By: #### 2 4356-8 ####[facility]ORATORYCLIA [id number] [address] Clarity (Unsp spec) Cloudy Abnormal Clear [facility] Comment on above: Order Comment: Speci men Type: URINE SPECIMENOrdering Facility: [facility] Address: [address] [place] [address] Performed By: #### 2 4356-8 ####[facility]ORATORYCLIA [id number] [address] Color (U) Yellow Normal Yellow [facility] Comment on above: Order Comment: Speci men Type: URINE SPECIMENOrdering Facility: [facility] Address: [address] [place] [address] Performed By: #### 2 4356-8 ####[facility]ORATORYCLIA [id number] [address] Epithelial cells LM.HPF (Urine sed) [#/Area] 7.1 /[HPF] Normal [facility] Comment on above: Order Comment: Speci men Type: URINE SPECIMENOrdering Facility: [facility] Address: [address] [place] [address] Performed By: #### 2 4356-8 ####[facility]ATORYCLIA [id number] [address] Glucose Test strip (U) [Mass/Vol] Negative Normal Negative [facility] Comment on above: Order Comment: Speci men Type: URINE SPECIMENOrdering Facility: [facility] Address: [address] [place] [address] Performed By: #### 2 4356-8 ####[facility]ORATORYCLIA [id number] [address] [place] Granular casts (Urine sed) [#/Area] /[LPF] Abnormal 0 /LPF [facility] Comment on above: Order Comment: Speci men Type: URINE SPECIMENOrdering Facility: [facility] Address: [address] [place] [address] Performed By: #### 2 4356-8 ####[facility]ATORYCLIA [id number] [address] Hemoglobin Ql (U) Moderate Abnormal Negative [facility] Comment on above: Order Comment: Speci men Type: URINE SPECIMENOrdering Facility: [facility] Address: [address] [place] [address] Performed By: #### 2 4356-8 ####[facility] LABORATORYCLIA [id number] [address] Hyaline casts (Urine sed) [#/Area] /[LPF] Abnormal 0 /LPF [facility] Comment on above: Order Comment: Speci men Type: URINE SPECIMENOrdering Facility: [facility] Address: [address] [place] [address] Performed By: #### 2 4356-8 ####[facility] LABORATORYCLIA [id number] [address] Ketones Ql (U) Negative Normal Negative [facility] Comment on above: Order Comment: Speci men Type: URINE SPECIMENOrdering Facility: [facility] Address: [address] [place] [address] Performed By: #### 2 4356-8 ####[facility]ATORYCLIA [id number] [address] Leukocyte esterase Test strip Ql (U) Negative Normal Negative [facility] Comment on above: Order Comment: Speci men Type: URINE SPECIMENOrdering Facility: [facility] Address: [address] [place] [address] Performed By: #### 2 4356-8 ####[facility]ATORYCLIA [id number] [address] Nitrite Ql (U) Negative Normal Negative [facility] Comment on above: Order Comment: Speci men Type: URINE SPECIMENOrdering Facility: [facility] Address: [address] [place] [address] Performed By: #### 2 4356-8 ####[facility]ORATORYCLIA [id number] [place] [address] [place] pH (U) 6.0 [pH] Normal 5.0-8.0 [facility] Comment on above: Order Comment: Speci men Type: URINE SPECIMENOrdering Facility: [facility] Address: [address] [place] [address] Performed By: #### 2 4356-8 ####[facility]ATORYCLIA [id number] [address] Protein (U) [Mass/Vol] 100 mg/dL Abnormal Negative [facility] Comment on above: Order Comment: Speci men Type: URINE SPECIMENOrdering Facility: [facility] Address: [address] [place] [address] Performed By: #### 2 4356-8 ####[facility] LABORATORYCLIA [id number] [address] [place] RBC LM.HPF (Urine sed) [#/Area] 0-3 /HPF Normal 0-3 /HPF [facility] Comment on above: Order Comment: Speci men Type: URINE SPECIMENOrdering Facility: [facility] Address: [address] [place] [address] Performed By: #### 2 4356-8 ####[facility] LABORATORYCLIA [id number] [place] [address] [place] Specific gravity (U) [Rel density] 1.024 Normal 1.005-1.030 [facility] Comment on above: Order Comment: Speci men Type: URINE SPECIMENOrdering Facility: [facility] Address: [address] [place] [address] Performed By: #### 2 4356-8 ####[facility] LABORATORYCLIA [id number] [address] Urobilinogen Ql (U) 0.2 EU/dL Normal 0.2-1.0 EU/dL [facility] Comment on above: Order Comment: Speci men Type: URINE SPECIMENOrdering Facility: [facility] Address: [address] [place] [address] Performed By: #### 2 4356-8 ####[facility] LABORATORYCLIA [id number] [address] WBC LM.HPF (Urine sed) [#/Area] 0-5 /HPF Normal 0-5 /HPF [facility] Comment on above: Order Comment: Speci men Type: URINE SPECIMENOrdering Facility: [facility] Address: [address] [place] [address] Performed By: #### 2 4356-8 ####[facility] LABORATORYCLIA [id number] [address] XR CHEST 1V FRONTALon 2021 XR CHEST 1V FRONTAL Normal [facility] XR CHEST 1V FRONTAL PORTon 0 06-15-2021 XR CHEST 1V FRONTAL PORT Normal [facility] XR CHEST 1V FRONTAL PORT Normal [facility] aPTT PPPon 06-15-2021 aPTT Coag (PPP) [Time] 30.9 s Normal 23.0-32.4 [facility] Comment on above: Order Comment: Speci men Type: BLOOD SPECIMENOrdering Facility: [facility] Address: [address] [place] [address] Performed By: #### 3 4528-0, 87816-8 ####[facility] LABORATORYCLIA [id number] [address] OF [facility] Basic metabolic 2000 panelon 06-14-2021 Anion gap [Moles/Vol] 8 mmol/L Low 9-18 [facility] Comment on above: Order Comment: Speci men Type: BLOOD SPECIMEN Performed By: #### 2 4321-2, 2777-1, 10935-6 ####[facility]ORATORYCLIA [id number] [place] [address] [place] Calcium [Mass/Vol] 8.9 mg/dL Normal 8.5-10.2 [facility] Comment on above: Order Comment: Speci men Type: BLOOD SPECIMEN Performed By: #### 2 4321-2, 7-, ####[facility]ORATORYCLIA [id number] [address] [place] Chloride [Moles/Vol] 121 mmol/L High 97-105 [facility] Comment on above: Order Comment: Speci men Type: BLOOD SPECIMEN Performed By: #### 2 4321-2, 2776-05, ####[facility]ORATORYCLIA [id number] [address] [place] CO2 [Moles/Vol] 30 mmol/L Normal 22-30 [facility] Comment on above: Order Comment: Speci men Type: BLOOD SPECIMEN Performed By: #### 2 4321-2, 2776-05, ####[facility]ATORYCLIA [id number] [address] STATES [facility] Creatinine [Mass/Vol] 0.78 mg/dL Normal 0.73-1.22 [facility] Comment on above: Order Comment: Speci men Type: BLOOD SPECIMEN Performed By: #### 2 4321-2, 2776-05, ####[facility]ATORYCLIA [id number] [address] [place] GFR/1.73 sq M.predicted MDRD (S/P/Bld) [Vol rate/Area] mL/min/{1.73_m2} Normal [facility] Comment on above: [...] GFR. Performed By: #### 2 4321-2, 2776-05, ####[facility]ORATORYCLIA [id number] [place] [address] [place] Glucose [Mass/Vol] 132 mg/dL High 74-99 [facility] Comment on above: Order Comment: Speci men Type: BLOOD SPECIMEN Result Comment: The [employer] Diabetes Association (ADA) provides guidance for cutoff [...] Standards of Medical Care in Diabetes 2016, [employer]. Diabetes Care. 2016.39(Suppl 1). Performed By: #### 2 1-2, 2776-05, ####[facility]ITAL[facility] [id number] [place] [address] [place] Potassium [Moles/Vol] 3.7 mmol/L Normal 3.7-5.1 [facility] Comment on above: Order Comment: Speci men Type: BLOOD SPECIMEN Performed By: #### 2 1-2, 2776-05, ####[facility]ORATORYCLIA [id number] [place] [address] [place] Sodium [Moles/Vol] 159 mmol/L High 136-144 [facility] Comment on above: Order Comment: Speci men Type: BLOOD SPECIMEN Performed By: #### 2 1-2, 2776-05, ####[facility]ATORYCLIA [id number] [address] STATES [facility] Urea nitrogen [Mass/Vol] 35 mg/dL High 9-24 [facility] Comment on above: Order Comment: Speci men Type: BLOOD SPECIMEN Performed By: #### 2 4321-2, 2777-1, ####[facility]ORATORYCLIA [id number] [address] CASE MANAGEMon 06-14-2021 CASE MANAGEM Normal [facility] CBC panel Auto (Bld)on 06-14 Erythrocyte distribution width (RBC) [Ratio] 16.2 % High 11.5-15.0 [facility] Comment on above: Order Comment: Speci men Type: BLOOD SPECIMEN Performed By: #### 5 8410-2 ####[facility]ATORYCLIA [id number] [address] Hematocrit (Bld) [Volume fraction] 35.2 % Low 39.0-51.0 [facility] Comment on above: Order Comment: Speci men Type: BLOOD SPECIMEN Performed By: #### 5 8410-2 ####[facility]ORATORYCLIA [id number] [address] Hemoglobin (Bld) [Mass/Vol] 10.1 g/dL Low 13.0-17.0 [facility] Comment on above: Order Comment: Speci men Type: BLOOD SPECIMEN Performed By: #### 5 8410-2 ####[facility]ORATORYCLIA [id number] [address] MCH (RBC) [Entitic mass] 27.2 pg Normal 26.0-34.0 [facility] Comment on above: Order Comment: Speci men Type: BLOOD SPECIMEN Performed By: #### 5 8410-2 ####[facility]ORATORYCLIA [id number] [address] [place] MCHC (RBC) [Mass/Vol] 28.7 g/dL Low 30.5-36.0 [facility] Comment on above: Order Comment: Speci men Type: BLOOD SPECIMEN Performed By: #### 5 8410-2 ####[facility]ORATORYCLIA [id number] [address] MCV (RBC) [Entitic vol] 94.6 fL Normal 80.0-100.0 [facility] Comment on above: Order Comment: Speci men Type: BLOOD SPECIMEN Performed By: #### 5 8410-2 ####[facility]ORATORYCLIA [id number] [address] Nucleated RBC (Bld) [#/Vol] 10*3/uL Normal <0.01 [facility] Comment on above: Order Comment: Speci men Type: BLOOD SPECIMEN Performed By: #### 5 8410-2 ####[facility]ORATORYCLIA [id number] [address] Platelet mean volume (Bld) [Entitic vol] 11.0 fL Normal 9.0-12.7 [facility] Comment on above: Order Comment: Speci men Type: BLOOD SPECIMEN Performed By: #### 5 8410-2 ####[facility]ATORYCLIA [id number] [address] Platelets (Bld) [#/Vol] 287 10*3/uL Normal 150-400 [facility] Comment on above: Order Comment: Speci men Type: BLOOD SPECIMEN Performed By: #### 5 8410-2 ####[facility]ATORYCLIA [id number] [address] RBC (Bld) [#/Vol] 3.72 10*6/uL Low 4.20-6.00 [facility] Comment on above: Order Comment: Speci men Type: BLOOD SPECIMEN Performed By: #### 5 8410-2 ####[facility]ATORYCLIA [id number] [address] WBC (Bld) [#/Vol] 12.23 10*3/uL High 3.70-11.00 [facility] Comment on above: Order Comment: Speci men Type: BLOOD SPECIMEN Performed By: #### 5 8410-2 ####[facility]ORATORYCLIA [id number] [place], [place] [address] [place] [address] Comprehensive metabolic 2000 panelon 06-14-2021 Albumin [Mass/Vol] 3.1 g/dL Low 3.9-4.9 [facility] Comment on above: Order Comment: Speci men Type: BLOOD SPECIMEN Performed By: #### 2 4323-8, HSTNT, 7-1, ####[facility]ATORYCLIA [id number] [address] ALP [Catalytic activity/Vol] 72 U/L Normal 38-113 [facility] Comment on above: Order Comment: Speci men Type: BLOOD SPECIMEN Performed By: #### 2 4323-8, HSTNT, 2776-, ####[facility]ATORYCLIA [id number] [address] ALT With P-5'-P [Catalytic activity/Vol] 57 U/L High 10-54 [facility] Comment on above: Order Comment: Speci men Type: BLOOD SPECIMEN Performed By: #### 2 4323-8, HSTNT, 2776-05, ####[facility]ATORYCLIA [id number] [address] Anion gap [Moles/Vol] 9 mmol/L Normal 9-18 [facility] Comment on above: Order Comment: Speci men Type: BLOOD SPECIMEN Performed By: #### 2 4323-8, HSTNT, 2776-, ####[facility]ATORYCLIA [id number] [address] AST With P-5'-P [Catalytic activity/Vol] 33 U/L Normal 14-40 [facility] Comment on above: Order Comment: Speci men Type: BLOOD SPECIMEN Performed By: #### 2 4323-8, HSTNT, 2776-05, ####[facility]ATORYCLIA [id number] [address] Bilirubin [Mass/Vol] 0.5 mg/dL Normal 0.2-1.3 [facility] Comment on above: Order Comment: Speci men Type: BLOOD SPECIMEN Performed By: #### 2 4323-8, HSTNT, 2776-05, ####[facility]ATORYCLIA [id number] [address] STATES OF [facility] Calcium [Mass/Vol] 8.8 mg/dL Normal 8.5-10.2 [facility] Comment on above: Order Comment: Speci men Type: BLOOD SPECIMEN Performed By: #### 2 4323-8, HSTNT, 2776-05, ####[facility]ATORYCLIA [id number] [address] STATES [facility] Chloride [Moles/Vol] 124 mmol/L High 97-105 [facility] Comment on above: Order Comment: Speci men Type: BLOOD SPECIMEN Performed By: #### 2 4323-8, HSTNT, 2776-05, ####[facility]ORYCLIA [id number] [address] STATES OF [facility] CO2 [Moles/Vol] 29 mmol/L Normal 22-30 [facility] Comment on above: Order Comment: Speci men Type: BLOOD SPECIMEN Performed By: #### 2 4323-8, HSTNT, 2776-05, ####[facility]ORATORYCLIA [id number] [address] STATES OF [facility] Creatinine [Mass/Vol] 0.73 mg/dL Normal 0.73-1.22 [facility] Comment on above: Order Comment: Speci men Type: BLOOD SPECIMEN Performed By: #### 2 4323-8, HSTNT, 2776-05, ####[facility]ATORYCLIA [id number] [place] [address] [place] GFR/1.73 sq M.predicted MDRD (S/P/Bld) [Vol rate/Area] mL/min/{1.73_m2} Normal [facility] Comment on above: [...] Performed By: #### 2 4323-8, HSTNT, 2776-05, ####[facility]ITALIA [id number] [place] [id number] [place] Glucose [Mass/Vol] 137 mg/dL High 74-99 [facility] Comment on above: Order Comment: Speci men Type: BLOOD SPECIMEN Result Comment: The [employer] Diabetes Association (ADA) provides guidance for cutoff [...] Standards of Medical Care in Diabetes 2016, [employer] Diabetes [employer]. Diabetes Care. 2016.39(Suppl 1). Performed By: #### 2 4323-8, HSTNT, 2776-05, ####[facility]ATORYCLIA [id number] [place] [address] [place] Potassium [Moles/Vol] 3.6 mmol/L Low 3.7-5.1 [facility] Comment on above: Order Comment: Speci men Type: BLOOD SPECIMEN Performed By: #### 2 4323-8, HSTNT, 2776-05, ####[facility]ATORYCLIA [id number] [place] [address] [place] Protein [Mass/Vol] 5.9 g/dL Low 6.3-8.0 [facility] Comment on above: Order Comment: Speci men Type: BLOOD SPECIMEN Performed By: #### 2 4323-8, HSTNT, 2776-05, ####[facility]ATORYCLIA [id number] [address] STATES OF [facility] Sodium [Moles/Vol] 162 mmol/L High 136-144 [facility] Comment on above: Order Comment: Speci men Type: BLOOD SPECIMEN Performed By: #### 2 4323-8, HSTNT, 2776-05, ####[facility]ATORYCLIA [id number] [place] [address] [place] Urea nitrogen [Mass/Vol] 33 mg/dL High 9-24 [facility] Comment on above: Order Comment: Speci men Type: BLOOD SPECIMEN Performed By: #### 2 4323-8, HSTNT, 2776-05, ####[facility]ATORYCLIA [id number] [place] [address] [place] HIGH SENSITIVITY TROPONIN To n 06-14-2021 HIGH SENSITIVITY TAMIKO 22 ng/L High <12 [facility] Comment on above: Order [...] day MACE. Performed By: #### H STNT ####[facility]ATORYCLIA [id number] [address] HIGH SENSITIVITY TAMIKO 22 ng/L High <12 [facility] Comment on above: Order [...] Performed By: #### 2 4323-8, HSTNT, 2776-05, ####[facility]ORYCLIA [id number] [address] Magnesium SerPl-mCncon 06-14 Magnesium [Mass/Vol] 2.9 mg/dL High 1.7-2.3 [facility] Comment on above: Order Comment: Speci men Type: BLOOD SPECIMEN Performed By: #### 2 4323-8, HSTNT, 2776-05, ####[facility]ATORYCLIA [id number] [address] Magnesium [Mass/Vol] 3.0 mg/dL High 1.7-2.3 [facility] Comment on above: Order Comment: Speci men Type: BLOOD SPECIMEN Performed By: #### 2 4321-2, 2776-05, ####[facility]ATORYCLIA [id number] [address] NURSING PROGon 06-14-2021 NURSING PROG Normal [facility] NUTRITIONon 06-14-2021 NUTRITION Normal [facility] Phosphate SerPl-mCncon 06-14 Phosphate [Mass/Vol] 2.4 mg/dL Low 2.7-4.8 [facility] Comment on above: Order Comment: Speci men Type: BLOOD SPECIMEN Performed By: #### 2 4323-8, HSTNT, 2776-05, ####[facility]ATORYCLIA [id number] [place] [address] [place] Phosphate [Mass/Vol] 3.2 mg/dL Normal 2.7-4.8 [facility] Comment on above: Order Comment: Speci men Type: BLOOD SPECIMEN Performed By: #### 2 4321-2, 2776-05, ####[facility]ORATORYCLIA [id number] [place], [place] [id number] [place] [address] [place] THERAPY NTon 06-14-2021 THERAPY NT Normal [facility] THERAPY NT Normal [facility] THERAPY NT Normal [facility] US DVT LOWER BILon US DVT LOWER RAINER Normal [facility] ALLIED HEALTHon 06-13-2021 ALLIED HEALTH Normal [facility] Basic metabolic 2000 panelon 06-13-2021 Anion gap [Moles/Vol] 7 mmol/L Low 9-18 [facility] Comment on above: Order Comment: Speci men Type: BLOOD SPECIMEN Performed By: #### 2 4321-2, , 2776-05 ####[facility]ATORYCLIA [id number] [place] [address] [place] Calcium [Mass/Vol] 8.8 mg/dL Normal 8.5-10.2 [facility] Comment on above: Order Comment: Speci men Type: BLOOD SPECIMEN Performed By: #### 2 4321-2, , 2776-05 ####[facility]ATORYCLIA [id number] [place] [address] [place] Chloride [Moles/Vol] 120 mmol/L High 97-105 [facility] Comment on above: Order Comment: Speci men Type: BLOOD SPECIMEN Performed By: #### 2 4321-2, , 2776-05 ####[facility]ATORYCLIA [id number] [place] [address] [place] CO2 [Moles/Vol] 28 mmol/L Normal 22-30 [facility] Comment on above: Order Comment: Speci men Type: BLOOD SPECIMEN Performed By: #### 2 4321-2, , 2776-05 ####[facility]ATORYCLIA [id number] [place] [address] [place] Creatinine [Mass/Vol] 0.78 mg/dL Normal 0.73-1.22 [facility] Comment on above: Order Comment: Spec men Type: BLOOD SPECIMEN Performed By: #### 2 4321-2, , 2776-05 ####[facility]ATORYCLIA [id number] [place] [address] [place] GFR/1.73 sq M.predicted MDRD (S/P/Bld) [Vol rate/Area] mL/min/{1.73_m2} Normal [facility] Comment on above: [...] Performed By: #### 2 4321-2, , 2776-05 ####[facility]ATORYCLIA [id number] [place] [address] [place] Glucose [Mass/Vol] 126 mg/dL High 74-99 [facility] Comment on above: Order Comment: [facility]: BLOOD SPECIMEN Result Comment: The [place] Diabetes Association (ADA) provides guidance for cutoff [...] Standards of Medical Care in Diabetes 2016, [place] Diabetes [employer]. Diabetes Care. 2016.39(Suppl 1). Performed By: #### 2 1-2, , 2776-05 ####[facility] LABORATORYCLIA [id number] [place] [address] [place] Potassium [Moles/Vol] 3.6 mmol/L Low 3.7-5.1 [facility] Comment on above: Order Comment: Speci men Type: BLOOD SPECIMEN Performed By: #### 2 1-2, , 2776-05 ####[facility]ATORYCLIA [id number] [address] [place] Sodium [Moles/Vol] 155 mmol/L High 136-144 [facility] Comment on above: Order Comment: Speci men Type: BLOOD SPECIMEN Performed By: #### 2 1-2, , 2776-05 ####[facility]ATORYCLIA [id number] [place] [address] [place] Urea nitrogen [Mass/Vol] 36 mg/dL High 9-24 [facility] Comment on above: Order Comment: Speci men Type: BLOOD SPECIMEN Performed By: #### 2 1-2, , 2776-05 ####[facility]ATORYCLIA [id number] [place] [address] [place] Anion gap [Moles/Vol] 6 mmol/L Low 9-18 [facility] Comment on above: Order Comment: Speci men Type: BLOOD SPECIMEN Performed By: #### 2 1-2, 2776-05, ####[facility]ORATORYCLIA [id number] [place] [address] [place] Calcium [Mass/Vol] 6.5 mg/dL Low 8.5-10.2 [facility] Comment on above: Order Comment: Speci men Type: BLOOD SPECIMEN Performed By: #### 2 4321-2, 7-, ####[facility]ORYCLIA [id number] [address] Chloride [Moles/Vol] 124 mmol/L High 97-105 [facility] Comment on above: Order Comment: Speci men Type: BLOOD SPECIMEN Performed By: #### 2 4321-2, 2776-05, ####[facility]ORYCLIA [id number] [address] [place] CO2 [Moles/Vol] 24 mmol/L Normal 22-30 [facility] Comment on above: Order Comment: Speci men Type: BLOOD SPECIMEN Performed By: #### 2 4321-2, 2776-05, ####[facility]ORYCLIA [id number] [address] [place] Creatinine [Mass/Vol] 0.61 mg/dL Low 0.73-1.22 [facility] Comment on above: Order Comment: Speci men Type: BLOOD SPECIMEN Performed By: #### 2 4321-2, 2776-05, ####[facility]ORYCLIA [id number] [address] [place] GFR/1.73 sq M.predicted MDRD (S/P/Bld) [Vol rate/Area] mL/min/{1.73_m2} Normal [facility] Comment on above: [...] GFR. Performed By: #### 2 4321-2, 2776-05, ####[facility]ATORYCLIA [id number] [place] [address] [place] Glucose [Mass/Vol] 100 mg/dL High 74-99 [facility] Comment on above: Order Comment: Speci men Type: BLOOD SPECIMEN Result Comment: The [place] Diabetes Association (ADA) provides guidance for cutoff [...] Standards of Medical Care in Diabetes 2016, [employer] Diabetes [employer]. Diabetes Care. 2016.39(Suppl 1). Performed By: #### 2 4321-2, 2776-05, ####[facility]ORYCLIA [id number] [place] [address] [place] Potassium [Moles/Vol] 2.7 mmol/L Low 3.7-5.1 [facility] Comment on above: Order Comment: Speci men Type: BLOOD SPECIMEN Performed By: #### 2 4321-2, 2776-05, ####[facility]ORYCLIA [id number] [place] [address] [place] Sodium [Moles/Vol] 154 mmol/L High 136-144 [facility] Comment on above: Order Comment: Speci men Type: BLOOD SPECIMEN Performed By: #### 2 4321-2, 2776-05, ####[facility]ORYCLIA [id number] [place] [address] [place] Urea nitrogen [Mass/Vol] 29 mg/dL High 9-24 [facility] Comment on above: Order Comment: Speci men Type: BLOOD SPECIMEN Performed By: #### 2 4321-2, 2777-1, 02174-5 ####[facility]ORYCLIA [id number] [address] CASE MANAGEMon 06-13-2021 CASE MANAGEM Normal [facility] CBC panel Auto (Bld)on 06-13 Erythrocyte distribution width (RBC) [Ratio] 15.9 % High 11.5-15.0 [facility] Comment on above: Order Comment: Speci men Type: BLOOD SPECIMEN Performed By: #### 5 8410-2 ####[facility]ORYCLIA [id number] [address] Hematocrit (Bld) [Volume fraction] 34.3 % Low 39.0-51.0 [facility] Comment on above: Order Comment: Speci men Type: BLOOD SPECIMEN Performed By: #### 5 8410-2 ####[facility]ORYCLIA [id number] [address] Hemoglobin (Bld) [Mass/Vol] 9.9 g/dL Low 13.0-17.0 [facility] Comment on above: Order Comment: Speci men Type: BLOOD SPECIMEN Performed By: #### 5 8410-2 ####[facility]ORYCLIA [id number] [address] MCH (RBC) [Entitic mass] 27.3 pg Normal 26.0-34.0 [facility] Comment on above: Order Comment: Speci men Type: BLOOD SPECIMEN Performed By: #### 5 8410-2 ####[facility]ORYCLIA [id number] [address] MCHC (RBC) [Mass/Vol] 28.9 g/dL Low 30.5-36.0 [facility] Comment on above: Order Comment: Speci men Type: BLOOD SPECIMEN Performed By: #### 5 8410-2 ####[facility]ORYCLIA [id number] [address] MCV (RBC) [Entitic vol] 94.5 fL Normal 80.0-100.0 [facility] Comment on above: Order Comment: Speci men Type: BLOOD SPECIMEN Performed By: #### 5 8410-2 ####[facility]ORYCLIA [id number] [address] Nucleated RBC (Bld) [#/Vol] 10*3/uL Normal <0.01 [facility] Comment on above: Order Comment: Speci men Type: BLOOD SPECIMEN Performed By: #### 5 8410-2 ####[facility]ORYCLIA [id number] [address] Platelet mean volume (Bld) [Entitic vol] 11.3 fL Normal 9.0-12.7 [facility] Comment on above: Order Comment: Speci men Type: BLOOD SPECIMEN Performed By: #### 5 8410-2 ####[facility]ORYCLIA [id number] [address] Platelets (Bld) [#/Vol] 269 10*3/uL Normal 150-400 [facility] Comment on above: Order Comment: Speci men Type: BLOOD SPECIMEN Performed By: #### 5 8410-2 ####[facility]ORYCLIA [id number] [address] RBC (Bld) [#/Vol] 3.63 10*6/uL Low 4.20-6.00 [facility] Comment on above: Order Comment: Speci men Type: BLOOD SPECIMEN Performed By: #### 5 8410-2 ####[facility]ORYCLIA [id number] [address] WBC (Bld) [#/Vol] 12.77 10*3/uL High 3.70-11.00 [facility] Comment on above: Order Comment: Speci men Type: BLOOD SPECIMEN Performed By: #### 5 8410-2 ####[facility]ORYCLIA [id number] [address] Gas and Carbon monoxide pane l (BldV)on 06-13-2021 Base excess Calc (BldV) [Moles/Vol] 5.7 mmol/L High 0-2 [facility] Comment on above: Order Comment: Speci men Type: VENOUS BLOOD SPECIMEN Performed By: #### 2 4344-4 ####[facility]ATORYCLIA [id number] [address] Body temperature 99.5 [degF] Normal [facility] Comment on above: Order Comment: Speci men Type: VENOUS BLOOD SPECIMEN Performed By: #### 2 4344-4 ####[facility]ORYCL[facility] [id number] [address] CALCIUM IONIZED, PH CORRECTED 1.24 mmol/L Normal 1.08-1.30 [facility] Comment on above: Order Comment: Speci men Type: VENOUS BLOOD SPECIMEN Performed By: #### 2 4344-4 ####[facility]ORYCL[facility] [id number] [address] Calcium.ionized (BldV) [Mass/Vol] 1.23 mmol/L Normal 1.08-1.30 [facility] Comment on above: Order Comment: Speci men Type: VENOUS BLOOD SPECIMEN Performed By: #### 2 4344-4 ####[facility] LABORATORYCLIA [id number] [address] OF [facility] Carboxyhemoglobin (BldV) [Mass fraction] 1.2 % Normal 0.0-2.0 [facility] Comment on above: Order Comment: Speci men Type: VENOUS BLOOD SPECIMEN Result Comment: Carb oxyhemoglobin Reference Range for Smokers: 2.0-8.0% Performed By: #### 2 4344-4 ####[facility]ORATORYCLIA [id number] [address] OF [facility] CO2 (BldV) [Partial pressure] 48 mm[Hg] Normal 42-55 [facility] Comment on above: Order Comment: Speci men Type: VENOUS BLOOD SPECIMEN Performed By: #### 2 4344-4 ####[facility]ATORYCLIA [id number] [address] CO2 [Moles/Vol] 28.2 mmol/L Normal 25-29 [facility] Comment on above: Order Comment: Speci men Type: VENOUS BLOOD SPECIMEN Performed By: #### 2 4344-4 ####[facility]ORATORYCLIA [id number] [address] CO2 adjusted to patient's actual temperature (BldV) [Partial pressure] 49 mmHg Normal 42-55 [facility] Comment on above: Order Comment: Speci men Type: VENOUS BLOOD SPECIMEN Performed By: #### 2 4344-4 ####[facility]ATORYCLIA [id number] [address] Glucose [Mass/Vol] 131 mg/dL High 60-105 [facility] Comment on above: Order Comment: Speci men Type: VENOUS BLOOD SPECIMEN Performed By: #### 2 4344-4 ####[facility] LABORATORYCLIA [id number] [address] HCO3 (Bld) [Moles/Vol] 30.6 mmol/L High 24-28 [facility] Comment on above: Order Comment: Speci men Type: VENOUS BLOOD SPECIMEN Performed By: #### 2 4344-4 ####[facility]ATORYCLIA [id number] [address] OF [facility] Hematocrit (Bld) [Volume fraction] 32.8 % Low 39.0-51.0 [facility] Comment on above: Order Comment: Speci men Type: VENOUS BLOOD SPECIMEN Performed By: #### 2 4344-4 ####[facility]ATORYCLIA [id number] [address] Hemoglobin (Bld) [Mass/Vol] 10.6 g/dL Low 13.0-17.0 [facility] Comment on above: Order Comment: Speci men Type: VENOUS BLOOD SPECIMEN Performed By: #### 2 4344-4 ####[facility]ORATORYCLIA [id number] [place], [place] [id number] [place] [address] LITERS 6 Liters/min Normal [facility] Comment on above: Order Comment: Speci men Type: VENOUS BLOOD SPECIMEN Performed By: #### 2 4344-4 ####[facility]ORATORYCLIA [id number] [place], [place] [address] [place] [address] [place] Methemoglobin (Bld) [Mass fraction] 1.0 % Normal 0.0-1.5 [facility] Comment on above: Order Comment: Speci men Type: VENOUS BLOOD SPECIMEN Performed By: #### 2 4344-4 ####[facility]ORATORYCLIA [id number] [address] O2 THERAPY NC = Nasal Cannula Normal [facility] Comment on above: Order Comment: Speci men Type: VENOUS BLOOD SPECIMEN Performed By: #### 2 4344-4 ####[facility]ORATORYCLIA [id number] [place], [place] [address] [place] [address] [place] Oxygen (BldV) [Partial pressure] 42 mm[Hg] Normal 35-45 [facility] Comment on above: Order Comment: Speci men Type: VENOUS BLOOD SPECIMEN Performed By: #### 2 4344-4 ####[facility]ORATORYCLIA [id number] [place], [place] [address] [place] [address] [place] Oxygen adjusted to patient's actual temperature (BldV) [Partial pressure] 43.8 mmHg Normal 35-45 [facility] Comment on above: Order Comment: Speci men Type: VENOUS BLOOD SPECIMEN Performed By: #### 2 4344-4 ####[facility]ATORYCLIA [id number] [place], [place] [address] [place] [address] [place] Oxygen saturation in Blood 76.7 % Normal 60-85 [facility] Comment on above: Order Comment: Speci men Type: VENOUS BLOOD SPECIMEN Performed By: #### 2 4344-4 ####[facility]ATORYCLIA [id number] [facility] [address] Oxyhemoglobin (BldV) [Mass fraction] 75 % Normal 60-85 [facility] Comment on above: Order Comment: Speci men Type: VENOUS BLOOD SPECIMEN Performed By: #### 2 4344-4 ####[facility]ATORYCLIA [id number] [address] pH (BldV) 7.42 [pH] Normal 7.32-7.42 [facility] Comment on above: Order Comment: Speci men Type: VENOUS BLOOD SPECIMEN Performed By: #### 2 4344-4 ####[facility]ATORYCLIA [id number] [address] pH adjusted to patient's actual temperature (BldV) 7.41 Normal 7.32-7.42 [facility] Comment on above: Order Comment: Speci men Type: VENOUS BLOOD SPECIMEN Performed By: #### 2 4344-4 ####[facility]ORATORYCLIA [id number] [address] Potassium [Moles/Vol] 3.5 mmol/L Normal 3.5-5.0 [facility] Comment on above: Order Comment: Speci men Type: VENOUS BLOOD SPECIMEN Performed By: #### 2 4344-4 ####[facility]ATORYCLIA [id number] [address] OF [facility] Sodium [Moles/Vol] 157 mmol/L High 136-144 [facility] Comment on above: Order Comment: Speci men Type: VENOUS BLOOD SPECIMEN Performed By: #### 2 4344-4 ####[facility]ATORYCLIA [id number] [address] OF [place] Magnesium SerPl-mCncon 06-13 Magnesium [Mass/Vol] 3.0 mg/dL High 1.7-2.3 [facility] Comment on above: Order Comment: Speci men Type: BLOOD SPECIMEN Performed By: #### 2 4321-2, 34964-9, 2777-1 ####[facility]ORATORYCLIA [id number] [place] [address] [place] [facility] Magnesium [Mass/Vol] 2.2 mg/dL Normal 1.7-2.3 [facility] Comment on above: Order Comment: Speci men Type: BLOOD SPECIMEN Performed By: #### 2 4321-2, 2776-, ####[facility]ORATORYCLIA [id number] [place] [address] [place] [facility] Phosphate SerPl-mCncon 06-13 Phosphate [Mass/Vol] 2.2 mg/dL Low 2.7-4.8 [facility] Comment on above: Order Comment: Speci men Type: BLOOD SPECIMEN Performed By: #### 2 4321-2, , 2776-05 ####[facility]ORATORYCLIA [id number] [address] Phosphate [Mass/Vol] 1.8 mg/dL Low 2.7-4.8 [facility] Comment on above: Order Comment: Speci men Type: BLOOD SPECIMEN Performed By: #### 2 4321-2, 2776-05, ####[facility]ORATORYCLIA [id number] [address] STATES OF [facility] XR CHEST 1V FRONTALon 2021 XR CHEST 1V FRONTAL Normal [facility] ALLIED HEALTHon 06-12-2021 ALLIED HEALTH Normal [facility] BRIEF OP NOTon 06-12-2021 BRIEF OP NOT Normal [facility] Bacteria Fld Culton 06-12-19 22 Bacteria identified Cx Nom (Body fld) CULTURE, BODY FLD: No growth 5 days GRAM STAIN: No organisms seen Moderate Polymorphonuclear leukocytes Normal [facility] Comment on above: Performed By: #### 6 11-4 ####[facility]ORATORYCLIA [id number] [address] OF [place] Basic metabolic 2000 panelon 06-12-2021 Anion gap [Moles/Vol] 6 mmol/L Low 9-18 [facility] Comment on above: Order Comment: Speci men Type: BLOOD SPECIMEN Performed By: #### 2 777-1, 02720-8, ####[facility]ORATORYCLIA [id number] [address] STATES OF [facility] Calcium [Mass/Vol] 8.7 mg/dL Normal 8.5-10.2 [facility] Comment on above: Order Comment: Speci men Type: BLOOD SPECIMEN Performed By: #### 2 777-1, , ####[facility]ORATORYCLIA [id number] [address] STATES [place] Chloride [Moles/Vol] 118 mmol/L High 97-105 [facility] Comment on above: Order Comment: Speci men Type: BLOOD SPECIMEN Performed By: #### 2 777-1, , ####[facility]ORATORYCLIA [id number] [address] STATES [place] CO2 [Moles/Vol] 28 mmol/L Normal 22-30 [facility] Comment on above: Order Comment: Speci men Type: BLOOD SPECIMEN Performed By: #### 2 777-1, , ####[facility]ORATORYCLIA [id number] [address] STATES [place] Creatinine [Mass/Vol] 0.77 mg/dL Normal 0.73-1.22 [facility] Comment on above: Order Comment: Speci men Type: BLOOD SPECIMEN Performed By: #### 2 777-1, , ####[facility]ORATORYCLIA [id number] [place] [address] [place] GFR/1.73 sq M.predicted MDRD (S/P/Bld) [Vol rate/Area] mL/min/{1.73_m2} Normal [facility] Comment on above: [...] actual GFR. Performed By: #### 2 777-1, 25128-7, ####[facility]ORATORYCLIA [id number] [place] [address] [place] Glucose [Mass/Vol] 116 mg/dL High 74-99 [facility] Comment on above: Order Comment: Speci men Type: BLOOD SPECIMEN Result Comment: The [place] [employer] (ADA) provides guidance for cutoff [...] Standards of Medical Care in Diabetes 2016, [employer]. Diabetes Care. 2016.39(Suppl 1). Performed By: #### 2 777-1, 74054-8, ####[facility]ORATORYCLIA [id number] [address] STATES [place] Potassium [Moles/Vol] 4.0 mmol/L Normal 3.7-5.1 [facility] Comment on above: Order Comment: Speci men Type: BLOOD SPECIMEN Performed By: #### 2 777-1, 05269-6, ####[facility]ORATORYCLIA [id number] [place] [address] [place] Sodium [Moles/Vol] 152 mmol/L High 136-144 [facility] Comment on above: Order Comment: Speci men Type: BLOOD SPECIMEN Performed By: #### 2 777-1, 28366-2, ####[facility] LABORATORYCLIA [id number] [address] Urea nitrogen [Mass/Vol] 34 mg/dL High 9-24 [facility] Comment on above: Order Comment: Speci men Type: BLOOD SPECIMEN Performed By: #### 2 777-1, 54214-5, ####[facility] LABORATORYCLIA [id number] [address] CBC panel Auto (Bld)on 06-12 Erythrocyte distribution width (RBC) [Ratio] 16.1 % High 11.5-15.0 [facility] Comment on above: Order Comment: Speci men Type: BLOOD SPECIMEN Performed By: #### 5 8410-2 ####[facility]ORATORYCLIA [id number] [address] Hematocrit (Bld) [Volume fraction] 32.8 % Low 39.0-51.0 [facility] Comment on above: Order Comment: Speci men Type: BLOOD SPECIMEN Performed By: #### 5 8410-2 ####[facility] LABORATORYCLIA [id number] [address] Hemoglobin (Bld) [Mass/Vol] 9.9 g/dL Low 13.0-17.0 [facility] Comment on above: Order Comment: Speci men Type: BLOOD SPECIMEN Performed By: #### 5 8410-2 ####[facility] LABORATORYCLIA [id number] [address] MCH (RBC) [Entitic mass] 28.4 pg Normal 26.0-34.0 [facility] Comment on above: Order Comment: Speci men Type: BLOOD SPECIMEN Performed By: #### 5 8410-2 ####[facility]ATORYCLIA [id number] [address] MCHC (RBC) [Mass/Vol] 30.2 g/dL Low 30.5-36.0 [facility] Comment on above: Order Comment: Speci men Type: BLOOD SPECIMEN Performed By: #### 5 8410-2 ####[facility]ORATORYCLIA [id number] [address] MCV (RBC) [Entitic vol] 94.3 fL Normal 80.0-100.0 [facility] Comment on above: Order Comment: Speci men Type: BLOOD SPECIMEN Performed By: #### 5 8410-2 ####[facility]ATORYCLIA [id number] [address] Nucleated RBC (Bld) [#/Vol] 10*3/uL Normal <0.01 [facility] Comment on above: Order Comment: Speci men Type: BLOOD SPECIMEN Performed By: #### 5 8410-2 ####[facility]ATORYCLIA [id number] [address] Platelet mean volume (Bld) [Entitic vol] 11.2 fL Normal 9.0-12.7 [facility] Comment on above: Order Comment: Speci men Type: BLOOD SPECIMEN Performed By: #### 5 8410-2 ####[facility]ATORYCLIA [id number] [address] Platelets (Bld) [#/Vol] 218 10*3/uL Normal 150-400 [facility] Comment on above: Order Comment: Speci men Type: BLOOD SPECIMEN Performed By: #### 5 8410-2 ####[facility]ATORYCLIA [id number] [address] RBC (Bld) [#/Vol] 3.48 10*6/uL Low 4.20-6.00 [facility] Comment on above: Order Comment: Speci men Type: BLOOD SPECIMEN Performed By: #### 5 8410-2 ####[facility]ATORYCLIA [id number] [address] WBC (Bld) [#/Vol] 13.33 10*3/uL High 3.70-11.00 [facility] Comment on above: Order Comment: Speci men Type: BLOOD SPECIMEN Performed By: #### 5 8410-2 ####[facility]ORATORYCLIA [id number] [place] [id number] [place] CONSULT PROGon 06-12-2021 CONSULT PROG Normal [facility] CT DRN PLACE PERIT/RETROP FL BIon 06-12-[address] PERIT/RETROP FL BI Normal [facility] HISTORY PHYSICALon HISTORY PHYSICAL Normal [facility] Magnesium SerPl-mCncon 06-12 Magnesium [Mass/Vol] 2.7 mg/dL High 1.7-2.3 [facility] Comment on above: Order Comment: Speci men Type: BLOOD SPECIMEN Performed By: #### 2 777-1, 52071-6, 66565-2 ####[facility]ORATORYCLIA [id number] [address] [place] PT panel Coag (PPP)on 2021 INR Coag (PPP) [Relative time] 1.1 {INR} Normal 0.9-1.3 [facility] Comment on above: Order Comment: Speci men Type: BLOOD SPECIMEN Result Comment: Yris min K Antagonist (VKA) Therapeutic Range: INR 2 to 3 (Target INR of 2.5)Note: For patients treated with VKA drugs, such as warfarin, the [employer] 2012 Guideline recommends [...] al. Chest 2012, 141:7S-47SNishimura RA, et al. [facility] 2017, 70: 252-289 Performed By: #### 3 4528-0 ####[facility]ORATORYCLIA [id number] [address] OF [facility] PT Coag (PPP) [Time] 11.9 s Normal 9.7-13.0 [facility] Comment on above: Order Comment: Speci men Type: BLOOD SPECIMEN Performed By: #### 3 4528-0 ####[facility]ATORYCLIA [id number] [address] OF [place] Phosphate SerPl-mCncon 06-12 Phosphate [Mass/Vol] 2.2 mg/dL Low 2.7-4.8 [facility] Comment on above: Order Comment: Speci men Type: BLOOD SPECIMEN Performed By: #### 2 777-1, 47556-0, 55881-0 ####[facility]ATORYCLIA [id number] [address] OF [facility] XR ABDOMEN 1V SUPINEon 06-12 XR ABDOMEN 1V SUPINE Normal [facility] ALLIED HEALTHon 06-11-2021 ALLIED HEALTH Normal [facility] Bacteria Bld Culton 06-11-19 22 Bacteria identified Cx Nom (Bld) CULTURE, BLOOD: No growth 5 days Normal [facility] Comment on above: Performed By: #### 6 00-7 ####[facility]ATORYCLIA [id number] [address] Bacteria identified Cx Nom (Bld) CULTURE, BLOOD: No growth 5 days Normal [facility] Comment on above: Performed By: #### 6 00-7 ####[facility]ORYCLIA [id number] [address] Bacteria Ur Culton 2 Bacteria identified Cx Nom (U) CULTURE, URINE: No growth (<1,000 CFU/ml) Normal [facility] Comment on above: Performed By: #### 6 30-4 ####[facility]ORATORYCLIA [id number] [place] [address] [place] Basic metabolic 2000 panelon 06-11-2021 Anion gap [Moles/Vol] 9 mmol/L Normal 9-18 [facility] Comment on above: Order Comment: Speci men Type: BLOOD SPECIMEN Performed By: #### 1 9123-9, 2777-, 60590-3 ####[facility]ATORYCLIA [id number] [address] [place] Calcium [Mass/Vol] 8.5 mg/dL Normal 8.5-10.2 [facility] Comment on above: Order Comment: Speci men Type: BLOOD SPECIMEN Performed By: #### 1 9123-9, 2776-05, 86735-5 ####[facility]ATORYCLIA [id number] [address] [place] Chloride [Moles/Vol] 118 mmol/L High 97-105 [facility] Comment on above: Order Comment: Speci men Type: BLOOD SPECIMEN Performed By: #### 1 9123-9, 2776-05, 12225-0 ####[facility]ORYCLIA [id number] [address] STATES OF [facility] CO2 [Moles/Vol] 27 mmol/L Normal 22-30 [facility] Comment on above: Order Comment: Speci men Type: BLOOD SPECIMEN Performed By: #### 1 9123-9, 2776-05, 94483-0 ####[facility]ORYCLIA [id number] [address] [place] Creatinine [Mass/Vol] 0.75 mg/dL Normal 0.73-1.22 [facility] Comment on above: Order Comment: Speci men Type: BLOOD SPECIMEN Performed By: #### 1 9123-9, 2776-05, 31420-5 ####[facility]ATORYCLIA [id number] [place] [address] [place] GFR/1.73 sq M.predicted MDRD (S/P/Bld) [Vol rate/Area] mL/min/{1.73_m2} Normal [facility] Comment on above: [...] GFR. Performed By: #### 1 9123-9, 2777-, 09871-5 ####[facility] [id number] [place] [address] [place] Glucose [Mass/Vol] 142 mg/dL High 74-99 [facility] Comment on above: Order Comment: Speci men Type: BLOOD SPECIMEN Result Comment: The [place] [employer] (ADA) provides guidance for cutoff [...] Standards of Medical Care in Diabetes 2016, [place] [employer]. Diabetes Care. 2016.39(Suppl 1). Performed By: #### 1 9123-9, 2777-, 73176-3 ####[facility]ATORYCLIA [id number] [place] [address] [place] Potassium [Moles/Vol] 3.6 mmol/L Low 3.7-5.1 [facility] Comment on above: Order Comment: Speci [facility] Type: BLOOD SPECIMEN Performed By: #### 1 9123-9, 2776-05, 24841-1 ####[facility]ORATORYCLIA [id number] [address] Sodium [Moles/Vol] 154 mmol/L High 136-144 [facility] Comment on above: Order Comment: Speci men Type: BLOOD SPECIMEN Performed By: #### 1 9123-9, 2776-05, 56321-1 ####[facility]ATORYCLIA [id number] [address] STATES [facility] Urea nitrogen [Mass/Vol] 31 mg/dL High 9-24 [facility] Comment on above: Order Comment: Speci men Type: BLOOD SPECIMEN Performed By: #### 1 23-9, 2776-05, ####[facility]ATORYCLIA [id number] [address] C diff Tox gens Stl Ql MEGAN+p robeon 06-11-2021 C. difficile toxin genes MEGAN+probe Ql (Stl) Negative Normal Negative for C. difficile toxin by PCR [facility] Comment on above: Order Comment: Speci men Type: STOOL SPECIMEN Performed By: #### 5 4067-4 ####[facility]ATORYCLIA [id number] [address] CBC W Auto Differential pane l (Bld)on 06-11-2021 Basophils (Bld) [#/Vol] 0.03 10*3/uL Normal <0.11 [facility] Comment on above: Order Comment: Speci men Type: BLOOD SPECIMEN Performed By: #### 5 7021-8 ####[facility]ATORYCLIA [id number] [address] Basophils/100 WBC (Bld) 0.2 % Normal [facility] Comment on above: Order Comment: Speci men Type: BLOOD SPECIMEN Performed By: #### 5 7021-8 ####[facility]ORYCLIA [id number] [address] Differential cell count method Nom (Bld) Auto Normal [facility] Comment on above: Order Comment: Speci men Type: BLOOD SPECIMEN Performed By: #### 5 7021-8 ####[facility]ORATORYCLIA [id number] [address] Eosinophils (Bld) [#/Vol] 0.19 10*3/uL Normal <0.46 [facility] Comment on above: Order Comment: Speci men Type: BLOOD SPECIMEN Performed By: #### 5 7021-8 ####[facility]ORATORYCLIA [id number] [address] Eosinophils/100 WBC (Bld) 1.5 % Normal [facility] Comment on above: Order Comment: Speci men Type: BLOOD SPECIMEN Performed By: #### 5 7021-8 ####[facility]ORATORYCLIA [id number] [address] Erythrocyte distribution width (RBC) [Ratio] 16.3 % High 11.5-15.0 [facility] Comment on above: Order Comment: Speci men Type: BLOOD SPECIMEN Performed By: #### 5 7021-8 ####[facility]ORATORYCLIA [id number] [address] Hematocrit (Bld) [Volume fraction] 32.1 % Low 39.0-51.0 [facility] Comment on above: Order Comment: Speci men Type: BLOOD SPECIMEN Performed By: #### 5 7021-8 ####[facility]ORATORYCLIA [id number] [address] Hemoglobin (Bld) [Mass/Vol] 9.3 g/dL Low 13.0-17.0 [facility] Comment on above: Order Comment: Speci men Type: BLOOD SPECIMEN Performed By: #### 5 7021-8 ####[facility]ORATORYCLIA [id number] [address] IMMATURE GRAN % 0.6 % Normal [facility] Comment on above: Order Comment: Speci men Type: BLOOD SPECIMEN Performed By: #### 5 7021-8 ####[facility]ORATORYCLIA [id number] [address] IMMATURE GRAN ABS 0.08 k/uL Normal <0.10 [facility] Comment on above: Order Comment: Speci men Type: BLOOD SPECIMEN Performed By: #### 5 7021-8 ####[facility]ATORYCLIA [id number] [address] Lymphocytes (Bld) [#/Vol] 1.65 10*3/uL Normal 1.00-4.00 [facility] Comment on above: Order Comment: Speci men Type: BLOOD SPECIMEN Performed By: #### 5 7021-8 ####[facility]ORYCLIA [id number] [address] Lymphocytes/100 WBC (Bld) 12.8 % Normal [facility] Comment on above: Order Comment: Speci men Type: BLOOD SPECIMEN Performed By: #### 5 7021-8 ####[facility]ORYCLIA [id number] [address] MCH (RBC) [Entitic mass] 27.2 pg Normal 26.0-34.0 [facility] Comment on above: Order Comment: Speci men Type: BLOOD SPECIMEN Performed By: #### 5 7021-8 ####[facility]ORYCLIA [id number] [address] MCHC (RBC) [Mass/Vol] 29.0 g/dL Low 30.5-36.0 [facility] Comment on above: Order Comment: Speci men Type: BLOOD SPECIMEN Performed By: #### 5 7021-8 ####[facility]ORATORYCLIA [id number] [address] MCV (RBC) [Entitic vol] 93.9 fL Normal 80.0-100.0 [facility] Comment on above: Order Comment: Speci men Type: BLOOD SPECIMEN Performed By: #### 5 7021-8 ####[facility]ATORYCLIA [id number] [address] Monocytes (Bld) [#/Vol] 0.68 10*3/uL Normal <0.87 [facility] Comment on above: Order Comment: Speci men Type: BLOOD SPECIMEN Performed By: #### 5 7021-8 ####[facility]ATORYCLIA [id number] [address] Monocytes/100 WBC (Bld) 5.3 % Normal [facility] Comment on above: Order Comment: Speci men Type: BLOOD SPECIMEN Performed By: #### 5 7021-8 ####[facility]ORATORYCLIA [id number] [address] Neutrophils (Bld) [#/Vol] 10.22 10*3/uL High 1.45-7.50 [facility] Comment on above: Order Comment: Speci men Type: BLOOD SPECIMEN Performed By: #### 5 7021-8 ####[facility]ORATORYCLIA [id number] [address] Neutrophils/100 WBC (Bld) 79.6 % Normal [facility] Comment on above: Order Comment: Speci men Type: BLOOD SPECIMEN Performed By: #### 5 7021-8 ####[facility]ORATORYCLIA [id number] [address] Nucleated RBC (Bld) [#/Vol] 10*3/uL Normal <0.01 [facility] Comment on above: Order Comment: Speci men Type: BLOOD SPECIMEN Performed By: #### 5 7021-8 ####[facility] LABORATORYCLIA [id number] [address] Nucleated RBC/100 WBC (Bld) [Ratio] 0.0 /100 WBC Normal 0.0 [facility] Comment on above: Order Comment: Speci men Type: BLOOD SPECIMEN Performed By: #### 5 7021-8 ####[facility]ORATORYCLIA [id number] Platelet mean volume (Bld) [Entitic vol] 11.1 fL Normal 9.0-12.7 [facility] Comment on above: Order Comment: Speci men Type: BLOOD SPECIMEN Performed By: #### 5 7021-8 ####[facility] LABORATORYCLIA [id number] [address] Platelets (Bld) [#/Vol] 188 10*3/uL Normal 150-400 [facility] Comment on above: Order Comment: Speci men Type: BLOOD SPECIMEN Performed By: #### 5 7021-8 ####[facility] LABORATORYCLIA [id number] [address] RBC (Bld) [#/Vol] 3.42 10*6/uL Low 4.20-6.00 [facility] Comment on above: Order Comment: Speci men Type: BLOOD SPECIMEN Performed By: #### 5 7021-8 ####[facility] LABORATORYCLIA [id number] [address] WBC (Bld) [#/Vol] 12.85 10*3/uL High 3.70-11.00 [facility] Comment on above: Order Comment: Speci men Type: BLOOD SPECIMEN Performed By: #### 5 7021-8 ####[facility] LABORATORYCLIA [id number] [address] CBC panel Auto (Bld)on 06-11 Erythrocyte distribution width (RBC) [Ratio] 16.2 % High 11.5-15.0 [facility] Comment on above: Order Comment: Speci men Type: BLOOD SPECIMEN Performed By: #### 5 8410-2 ####[facility] LABORATORYCLIA [id number] [address] Hematocrit (Bld) [Volume fraction] 34.5 % Low 39.0-51.0 [facility] Comment on above: Order Comment: Speci men Type: BLOOD SPECIMEN Performed By: #### 5 8410-2 ####[facility] LABORATORYCLIA [id number] [address] Hemoglobin (Bld) [Mass/Vol] 10.3 g/dL Low 13.0-17.0 [facility] Comment on above: Order Comment: Speci men Type: BLOOD SPECIMEN Performed By: #### 5 8410-2 ####[facility] LABORATORYCLIA [id number] [address] MCH (RBC) [Entitic mass] 28.1 pg Normal 26.0-34.0 [facility] Comment on above: Order Comment: Speci men Type: BLOOD SPECIMEN Performed By: #### 5 8410-2 ####[facility] LABORATORYCLIA [id number] [address] MCHC (RBC) [Mass/Vol] 29.9 g/dL Low 30.5-36.0 [facility] Comment on above: Order Comment: Speci men Type: BLOOD SPECIMEN Performed By: #### 5 8410-2 ####[facility] LABORATORYCLIA [id number] [address] MCV (RBC) [Entitic vol] 94.3 fL Normal 80.0-100.0 [facility] Comment on above: Order Comment: Speci men Type: BLOOD SPECIMEN Performed By: #### 5 8410-2 ####[facility] LABORATORYCLIA [id number] [address] Nucleated RBC (Bld) [#/Vol] 10*3/uL Normal <0.01 [facility] Comment on above: Order Comment: Speci men Type: BLOOD SPECIMEN Performed By: #### 5 8410-2 ####[facility] LABORATORYCLIA [id number] [address] Platelet mean volume (Bld) [Entitic vol] 10.9 fL Normal 9.0-12.7 [facility] Comment on above: Order Comment: Speci men Type: BLOOD SPECIMEN Performed By: #### 5 8410-2 ####[facility] LABORATORYCLIA [id number] [place] [address] [place] Platelets (Bld) [#/Vol] 210 10*3/uL Normal 150-400 [facility] Comment on above: Order Comment: Speci men Type: BLOOD SPECIMEN Performed By: #### 5 8410-2 ####[facility] LABORATORYCLIA [id number] [address] STATES OF [facility] RBC (Bld) [#/Vol] 3.66 10*6/uL Low 4.20-6.00 [facility] Comment on above: Order Comment: Speci men Type: BLOOD SPECIMEN Performed By: #### 5 8410-2 ####[facility] LABORATORYCLIA [id number] [address] WBC (Bld) [#/Vol] 13.03 10*3/uL High 3.70-11.00 [facility] Comment on above: Order Comment: Speci men Type: BLOOD SPECIMEN Performed By: #### 5 8410-2 ####[facility] LABORATORYCLIA [id number] [address] [place] CONSULT PROGon 06-11-2021 CONSULT PROG Normal [facility] CONSULT PROG Normal [facility] CONSULT PROG Normal [facility] CT ABD/PEL W IVCONon 022 CT ABD/PEL W IVCON Invalid Interpretation Code [facility] Magnesium SerPl-mCncon 06-11 Magnesium [Mass/Vol] 2.7 mg/dL High 1.7-2.3 [facility] Comment on above: Order Comment: Speci men Type: BLOOD SPECIMEN Performed By: #### 1 9123-9, 2777-1, 44316-0 ####[facility] LABORATORYCLIA [id number] [address] [place] Phosphate SerPl-mCncon 06-11 Phosphate [Mass/Vol] 2.5 mg/dL Low 2.7-4.8 [facility] Comment on above: Order Comment: Speci men Type: BLOOD SPECIMEN Performed By: #### 1 9123-9, 2777-1, 48364-4 ####[facility] LABORATORYCLIA [id number] [place], [place] [address] [place] [address] STATES OF [facility] Basic metabolic 2000 panelon 06-10-2021 Anion gap [Moles/Vol] 7 mmol/L Low 9-18 [facility] Comment on above: Order Comment: Speci men Type: BLOOD SPECIMEN Performed By: #### 2 777-1, 74543-9, , HFP ####[facility] LABORATORYCLIA [id number] [place], [place] [address] [place] [address] STATES OF [facility] Calcium [Mass/Vol] 8.5 mg/dL Normal 8.5-10.2 [facility] Comment on above: Order Comment: Speci men Type: BLOOD SPECIMEN Performed By: #### 2 777-1, 26961-0, , HFP ####[facility] LABORATORYCLIA [id number] [address] STATES OF [facility] Chloride [Moles/Vol] 118 mmol/L High 97-105 [facility] Comment on above: Order Comment: Speci men Type: BLOOD SPECIMEN Performed By: #### 2 777-1, 87477-0, , HFP ####[facility] LABORATORYCLIA [id number] [place], [place] [address] [place] [address] [place] CO2 [Moles/Vol] 26 mmol/L Normal 22-30 [facility] Comment on above: Order Comment: Speci men Type: BLOOD SPECIMEN Performed By: #### 2 777-1, 08088-5, , HFP ####[facility] LABORATORYCLIA [id number] [place], [place] [address] [place] [address] [place] Creatinine [Mass/Vol] 0.70 mg/dL Low 0.73-1.22 [facility] Comment on above: Order Comment: Speci men Type: BLOOD SPECIMEN Performed By: #### 2 777-1, 00253-9, , HFP ####[facility] LABORATORYCLIA [id number] [place] [address] [place] GFR/1.73 sq M.predicted MDRD (S/P/Bld) [Vol rate/Area] mL/min/{1.73_m2} Normal [facility] Comment on above: [...] actual GFR. Performed By: #### 2 777-1, 81840-5, , [facility] ####[facility]ITALIA [id number] [place] [address] [place] Glucose [Mass/Vol] 135 mg/dL High 74-99 [facility] Comment on above: Order Comment: Speci men Type: BLOOD SPECIMEN Result Comment: The [employer] Diabetes Association (ADA) provides guidance for cutoff [...] Standards of Medical Care in Diabetes 2016, [employer]. Diabetes Care. 2016.39(Suppl 1). Performed By: #### 2 777-1, 98158-9, 35645-5, [facility] ####[facility]ITAL[facility] [id number] [place] [address] [place] Potassium [Moles/Vol] 3.9 mmol/L Normal 3.7-5.1 [facility] Comment on above: Order Comment: Speci men Type: BLOOD SPECIMEN Performed By: #### 2 777-1, 72953-6, , [facility] ####[facility] LABORATORYCLIA [id number] [place] [address] [place] [facility] Sodium [Moles/Vol] 151 mmol/L High 136-144 [facility] Comment on above: Order Comment: Speci men Type: BLOOD SPECIMEN Performed By: #### 2 777-1, 96702-2, , HFP ####[facility] LABORATORYCLIA [id number] [address] STATES [facility] Urea nitrogen [Mass/Vol] 27 mg/dL High 9-24 [facility] Comment on above: Order Comment: Speci men Type: BLOOD SPECIMEN Performed By: #### 2 777-1, 38827-5, , [facility] ####[facility] LABORATORYCLIA [id number] [address] OF [facility] CASE MANAGEMon 06-10-2021 CASE MANAGEM Normal [facility] CBC panel Auto (Bld)on 06-10 Erythrocyte distribution width (RBC) [Ratio] 16.2 % High 11.5-15.0 [facility] Comment on above: Order Comment: Speci men Type: BLOOD SPECIMEN Performed By: #### 5 8410-2 ####[facility] LABORATORYCLIA [id number] [address] OF [facility] Hematocrit (Bld) [Volume fraction] 34.8 % Low 39.0-51.0 [facility] Comment on above: Order Comment: Speci men Type: BLOOD SPECIMEN Performed By: #### 5 8410-2 ####[facility]ORATORYCLIA [id number] [address] STATES OF [facility] Hemoglobin (Bld) [Mass/Vol] 10.2 g/dL Low 13.0-17.0 [facility] Comment on above: Order Comment: Speci men Type: BLOOD SPECIMEN Performed By: #### 5 8410-2 ####[facility] LABORATORYCLIA [id number] [address] MCH (RBC) [Entitic mass] 27.1 pg Normal 26.0-34.0 [facility] Comment on above: Order Comment: Speci men Type: BLOOD SPECIMEN Performed By: #### 5 8410-2 ####[facility] LABORATORYCLIA [id number] [address] MCHC (RBC) [Mass/Vol] 29.3 g/dL Low 30.5-36.0 [facility] Comment on above: Order Comment: Speci men Type: BLOOD SPECIMEN Performed By: #### 5 8410-2 ####[facility] LABORATORYCLIA [id number] [address] MCV (RBC) [Entitic vol] 92.6 fL Normal 80.0-100.0 [facility] Comment on above: Order Comment: Speci men Type: BLOOD SPECIMEN Performed By: #### 5 8410-2 ####[facility] LABORATORYCLIA [id number] [address] Nucleated RBC (Bld) [#/Vol] 10*3/uL Normal <0.01 [facility] Comment on above: Order Comment: Speci men Type: BLOOD SPECIMEN Performed By: #### 5 8410-2 ####[facility] LABORATORYCLIA [id number] [address] Platelet mean volume (Bld) [Entitic vol] 10.4 fL Normal 9.0-12.7 [facility] Comment on above: Order Comment: Speci men Type: BLOOD SPECIMEN Performed By: #### 5 8410-2 ####[facility] LABORATORYCLIA [id number] [address] Platelets (Bld) [#/Vol] 206 10*3/uL Normal 150-400 [facility] Comment on above: Order Comment: Speci men Type: BLOOD SPECIMEN Performed By: #### 5 8410-2 ####[facility] LABORATORYCLIA [id number] [address] OF [facility] RBC (Bld) [#/Vol] 3.76 10*6/uL Low 4.20-6.00 [facility] Comment on above: Order Comment: Speci men Type: BLOOD SPECIMEN Performed By: #### 5 8410-2 ####[facility] LABORATORYCLIA [id number] [address] WBC (Bld) [#/Vol] 11.36 10*3/uL High 3.70-11.00 [facility] Comment on above: Order Comment: Speci men Type: BLOOD SPECIMEN Performed By: #### 5 8410-2 ####[facility] LABORATORYCLIA [id number] [address] HEPATIC FUNCTION PNLon 06-10 Albumin [Mass/Vol] 3.1 g/dL Low 3.9-4.9 [facility] Comment on above: Order Comment: Speci men Type: BLOOD SPECIMEN Performed By: #### 2 777-1, 33831-7, , HFP ####[facility] LABORATORYCLIA [id number] [address] ALP [Catalytic activity/Vol] 73 U/L Normal 38-113 [facility] Comment on above: Order Comment: Speci men Type: BLOOD SPECIMEN Performed By: #### 2 777-1, 79972-0, , HFP ####[facility] LABORATORYCLIA [id number] [address] [place] ALT With P-5'-P [Catalytic activity/Vol] 64 U/L High 10-54 [facility] Comment on above: Order Comment: Speci men Type: BLOOD SPECIMEN Performed By: #### 2 777-1, 18514-8, , HFP ####[facility]ORATORYCLIA [id number] [address] AST With P-5'-P [Catalytic activity/Vol] 44 U/L High 14-40 [facility] Comment on above: Order Comment: Speci men Type: BLOOD SPECIMEN Performed By: #### 2 777-1, 80970-0, , [facility] ####[facility] LABORATORYCLIA [id number] [address] Bilirubin [Mass/Vol] 0.5 mg/dL Normal 0.2-1.3 [facility] Comment on above: Order Comment: Speci men Type: BLOOD SPECIMEN Performed By: #### 2 777-1, 27920-7, , [facility] ####[facility] LABORATORYCLIA [id number] [address] Bilirubin.conjugated [Mass/Vol] mg/dL Normal <0.2 [facility] Comment on above: Order Comment: Speci men Type: BLOOD SPECIMEN Performed By: #### 2 777-1, 20312-4, , [facility] ####[facility] LABORATORYCLIA [id number] [address] Protein [Mass/Vol] 5.7 g/dL Low 6.3-8.0 [facility] Comment on above: Order Comment: Speci men Type: BLOOD SPECIMEN Performed By: #### 2 777-1, 18477-0, , [facility] ####[facility] LABORATORYCLIA [id number] [address] OF [facility] LEVETIRACETAMon 06-10-2021 levETIRAcetam [Mass/Vol] 57.7 ug/mL High 12.0-46.0 [facility] Comment on above: [...] developed and its performance characteristics determined by [facility] [place] ( [facility]). It has not been cleared or approved by the FDA. [facility] is regulated under CLIA as qualified to perform high complexity testing. This test is used for clinical purposes. It should not be regarded as investigational or for research. Performed By: #### L DARY ####[facility] REFERENCE LABCLIA [id number] [id number] [address] [place] Magnesium SerPl-ncon 06-10 Magnesium [Mass/Vol] 2.7 mg/dL High 1.7-2.3 [facility] Comment on above: Order Comment: Speci men Type: BLOOD SPECIMEN Performed By: #### 2 777-1, 15413-3, , [facility] ####[facility] LABORATORYCLIA [id number] [place] [address] [place] Phosphate SerPl-ncon 06-10 Phosphate [Mass/Vol] 1.8 mg/dL Low 2.7-4.8 [facility] Comment on above: Order Comment: Speci men Type: BLOOD SPECIMEN Performed By: #### 2 777-1, 83353-0, , [facility] ####[facility] LABORATORYCLIA [id number] [place] [address] [place] ALLIED HEALTHon 06-09-2021 ALLIED HEALTH Normal [facility] ALLIED HEALTH Normal [facility] ALLIED HEALTH Normal [facility] ALLIED HEALTH Normal [facility] Basic metabolic 2000 panelon 06-09-2021 Anion gap [Moles/Vol] 8 mmol/L Low 9-18 [facility] Comment on above: Order Comment: Speci men Type: BLOOD SPECIMEN Performed By: #### 2 4321-2, 2777-1, ####[facility] LABORATORYCLIA [id number] [place] [address] [place] Calcium [Mass/Vol] 8.3 mg/dL Low 8.5-10.2 [facility] Comment on above: Order Comment: Speci men Type: BLOOD SPECIMEN Performed By: #### 2 4321-2, 2776-05, ####[facility] LABORATORYCLIA [id number] [place], [place] [address] [place] [address] [place] Chloride [Moles/Vol] 116 mmol/L High 97-105 [facility] Comment on above: Order Comment: Speci men Type: BLOOD SPECIMEN Performed By: #### 2 4321-2, 2776-05, ####[facility] LABORATORYCLIA [id number] [place], [place] [address] [place] [address] [place] CO2 [Moles/Vol] 27 mmol/L Normal 22-30 [facility] Comment on above: Order Comment: Speci men Type: BLOOD SPECIMEN Performed By: #### 2 4321-2, 2776-05, ####[facility] LABORATORYCLIA [id number] [place], [place] [address] [place] [address] [place] Creatinine [Mass/Vol] 0.70 mg/dL Low 0.73-1.22 [facility] Comment on above: Order Comment: Speci men Type: BLOOD SPECIMEN Performed By: #### 2 4321-2, 2776-05, ####[facility] LABORATORYCLIA [id number] [place] [address] [place] GFR/1.73 sq M.predicted MDRD (S/P/Bld) [Vol rate/Area] mL/min/{1.73_m2} Normal [facility] Comment on above: [...] actual GFR. Performed By: #### 2 1-2, 2776-05, ####[facility] LABORATORYCLIA [id number] [address] STATES OF [facility] Glucose [Mass/Vol] 123 mg/dL High 74-99 [facility] Comment on above: Order Comment: Speci men Type: BLOOD SPECIMEN Result Comment: The [place] Diabetes Association (ADA) provides guidance for cutoff [...] Standards of Medical Care in Diabetes 2016, [employer] Diabetes [employer]. Diabetes Care. 2016.39(Suppl 1). Performed By: #### 2 1-2, 2776-05, ####[facility] LABORATORYCLIA [id number] [address] STATES OF [facility] Potassium [Moles/Vol] 3.5 mmol/L Low 3.7-5.1 [facility] Comment on above: Order Comment: Speci men Type: BLOOD SPECIMEN Performed By: #### 2 1-2, 2776-05, ####[facility] LABORATORYCLIA [id number] [address] STATES [facility] Sodium [Moles/Vol] 151 mmol/L High 136-144 [facility] Comment on above: Order Comment: Speci men Type: BLOOD SPECIMEN Performed By: #### 2 4321-2, 2776-05, ####[facility] LABORATORYCLIA [id number] [address] Urea nitrogen [Mass/Vol] 39 mg/dL High 9-24 [facility] Comment on above: Order Comment: Speci men Type: BLOOD SPECIMEN Performed By: #### 2 4321-2, 2777-1, 35777-8 ####[facility] LABORATORYCLIA [id number] [address] CBC panel Auto (Bld)on 06-09 Erythrocyte distribution width (RBC) [Ratio] 16.2 % High 11.5-15.0 [facility] Comment on above: Order Comment: Speci men Type: BLOOD SPECIMEN Performed By: #### 5 8410-2 ####[facility] LABORATORYCLIA [id number] [address] Hematocrit (Bld) [Volume fraction] 33.7 % Low 39.0-51.0 [facility] Comment on above: Order Comment: Speci men Type: BLOOD SPECIMEN Performed By: #### 5 8410-2 ####[facility] LABORATORYCLIA [id number] [address] Hemoglobin (Bld) [Mass/Vol] 10.2 g/dL Low 13.0-17.0 [facility] Comment on above: Order Comment: Speci men Type: BLOOD SPECIMEN Performed By: #### 5 8410-2 ####[facility] LABORATORYCLIA [id number] [address] MCH (RBC) [Entitic mass] 27.4 pg Normal 26.0-34.0 [facility] Comment on above: Order Comment: Speci men Type: BLOOD SPECIMEN Performed By: #### 5 8410-2 ####[facility] LABORATORYCLIA [id number] [address] MCHC (RBC) [Mass/Vol] 30.3 g/dL Low 30.5-36.0 [facility] Comment on above: Order Comment: Speci men Type: BLOOD SPECIMEN Performed By: #### 5 8410-2 ####[facility] LABORATORYCLIA [id number] [address] MCV (RBC) [Entitic vol] 90.6 fL Normal 80.0-100.0 [facility] Comment on above: Order Comment: Speci men Type: BLOOD SPECIMEN Performed By: #### 5 8410-2 ####[facility] LABORATORYCLIA [id number] [address] Nucleated RBC (Bld) [#/Vol] 10*3/uL Normal <0.01 [facility] Comment on above: Order Comment: Speci men Type: BLOOD SPECIMEN Performed By: #### 5 8410-2 ####[facility] LABORATORYCLIA [id number] [address] Platelet mean volume (Bld) [Entitic vol] 10.3 fL Normal 9.0-12.7 [facility] Comment on above: Order Comment: Speci men Type: BLOOD SPECIMEN Performed By: #### 5 8410-2 ####[facility] LABORATORYCLIA [id number] [address] Platelets (Bld) [#/Vol] 219 10*3/uL Normal 150-400 [facility] Comment on above: Order Comment: Speci men Type: BLOOD SPECIMEN Performed By: #### 5 8410-2 ####[facility] LABORATORYCLIA [id number] [address] OF [facility] RBC (Bld) [#/Vol] 3.72 10*6/uL Low 4.20-6.00 [facility] Comment on above: Order Comment: Speci men Type: BLOOD SPECIMEN Performed By: #### 5 8410-2 ####[facility]ORATORYCLIA [id number] [address] WBC (Bld) [#/Vol] 13.02 10*3/uL High 3.70-11.00 [facility] Comment on above: Order Comment: Speci men Type: BLOOD SPECIMEN Performed By: #### 5 8410-2 ####[facility] LABORATORYCLIA [id number] [address] CONSULT PROGon 06-09-2021 CONSULT PROG Normal [facility] CONSULT PROG Normal [facility] CT BRAIN WO IVCONon 06-09-19 CT BRAIN WO IVCON Normal [facility] Magnesium SerPl-mCncon 06-09 Magnesium [Mass/Vol] 2.8 mg/dL High 1.7-2.3 [facility] Comment on above: Order Comment: Speci men Type: BLOOD SPECIMEN Performed By: #### 2 4321-2, 2777-1, 16229-5 ####[facility]ORATORYCLIA [id number] [address] NURSING PROGon 06-09-2021 NURSING PROG Normal [facility] NUTRITIONon 06-09-2021 NUTRITION Normal [facility] PT EDon 06-09-2021 PT ED Normal [facility] Phosphate SerPl-mCncon 06-09 Phosphate [Mass/Vol] 2.2 mg/dL Low 2.7-4.8 [facility] Comment on above: Order Comment: Speci men Type: BLOOD SPECIMEN Performed By: #### 2 4321-2, 2777-1, 70901-9 ####[facility]ORATORYCLIA [id number] [address] Vancomycin random [Mass/Vol] on 06-09-2021 Vancomycin [Mass/Vol] 18.9 ug/mL Normal 10.0-20.0 [facility] Comment on above: Order Comment: Speci men Type: BLOOD SPECIMEN Result Comment: Refe rence ranges and high/low indicator flags are provided as general guidelines only. The treating physician must determine appropriate target levels/dosing based on the specific clinical situation. Performed By: #### 4 091-5 ####[facility]ATORYCLIA [id number] [address] XR ABD 2V SUPINE W UPR/DECUB /CTLon 06-09-2021 XR ABD 2V SUPINE W UPR/DECUB/CTL Normal [facility] XR CHEST 1V FRONTALon 2021 XR CHEST 1V FRONTAL Normal [facility] XR NECK SOFT TISSUE 2V AP/LA Ton 06-09-2021 XR NECK SOFT TISSUE 2V AP/LAT Normal [facility] XR SKULL 2V AP/LATon 022 XR SKULL 2V AP/LAT Normal [facility] ALLIED HEALTHon 06-08-2021 ALLIED HEALTH Normal [facility] ANES POSTPROC EVALon 022 ANES POSTPROC EVAL Normal [facility] ANES PRE-OPon 06-08-2021 ANES PRE-OP Normal [facility] BRIEF OP NOTon 06-08-2021 BRIEF OP NOT Normal [facility] Bacteria Spec Anaerobe Culto n 06-08-2021 Bacteria identified Anaer cx Nom (Unsp spec) ORGANISM ID: 1 [id number] Staphylococcus saccharolyticus Identification performed by [facility]-Main See scanned document for susceptibility report Normal [facility] Comment on above: Performed By: #### [id number] ####[facility]ORYCLIA [id number] [place] [address] [place] Bacteria Wnd Culton 06-08-19 22 Bacteria identified Cx Nom (Wound) CULTURE, INTRAOPERATIVE HARDWARE: No growth 5 days GRAM STAIN: Not performed on specimen type Normal [facility] Comment on above: Performed By: #### [id number] ####[facility] [place] [facility]ATORYCLIA [id number] [place] [address] [place] Basic metabolic 2000 panelon 06-08-2021 Anion gap [Moles/Vol] 9 mmol/L Normal 9-18 [facility] Comment on above: Order Comment: Speci men Type: BLOOD SPECIMEN Performed By: #### 2 4321-2, 2777-1, 63479-8 ####[facility] [place] LABORATORYCLIA [id number] [place] [address] [place] Calcium [Mass/Vol] 8.7 mg/dL Normal 8.5-10.2 [facility] Comment on above: Order Comment: Speci men Type: BLOOD SPECIMEN Performed By: #### 2 4321-2, 2776-05, ####[facility] [place] LABORATORYCLIA [id number] [place], [place] [id number] [place] [address] STATES OF [facility] Chloride [Moles/Vol] 113 mmol/L High 97-105 [facility] Comment on above: Order Comment: Speci men Type: BLOOD SPECIMEN Performed By: #### 2 4321-2, 2776-05, ####[facility] [place] LABORATORYCLIA [id number] [place], [place] [address] [place] [address] [place] CO2 [Moles/Vol] 26 mmol/L Normal 22-30 [facility] Comment on above: Order Comment: Speci men Type: BLOOD SPECIMEN Performed By: #### 2 4321-2, 2776-05, ####[facility] [place] LABORATORYCLIA [id number] [address] [place] Creatinine [Mass/Vol] 0.68 mg/dL Low 0.73-1.22 [facility] Comment on above: Order Comment: Speci men Type: BLOOD SPECIMEN Performed By: #### 2 4321-2, 2776-05, ####[facility] [place] LABORATORYCLIA [id number] [address] [place] GFR/1.73 sq M.predicted MDRD (S/P/Bld) [Vol rate/Area] mL/min/{1.73_m2} Normal [facility] Comment on above: [...] GFR. Performed By: #### 2 4321-2, 2776-05, ####[facility] [place] LABORATORYCLIA [id number] [place] [address] [place] Glucose [Mass/Vol] 146 mg/dL High 74-99 [facility] Comment on above: Order Comment: Speci men Type: BLOOD SPECIMEN Result Comment: The [place] Diabetes [employer] (ADA) provides guidance for cutoff [...] Standards of Medical Care in Diabetes 2016, [employer]. Diabetes Care. 2016.39(Suppl 1). Performed By: #### 2 4321-2, 2776-05, ####[facility] [place] LABORATORYCLIA [id number] [place] [address] [place] Potassium [Moles/Vol] 3.6 mmol/L Low 3.7-5.1 [facility] Comment on above: Order Comment: Speci men Type: BLOOD SPECIMEN Performed By: #### 2 4321-2, 2776-05, ####[facility] [place] LABORATORYCLIA [id number] [place] [address] [place] Sodium [Moles/Vol] 148 mmol/L High 136-144 [facility] Comment on above: Order Comment: Speci men Type: BLOOD SPECIMEN Performed By: #### 2 4321-2, 2776-05, ####[facility] [place] LABORATORYCLIA [id number] [place] [address] [place] Urea nitrogen [Mass/Vol] 36 mg/dL High 9-24 [facility] Comment on above: Order Comment: Speci men Type: BLOOD SPECIMEN Performed By: #### 2 4321-2, 2777-1, 72319-9 ####[facility] [place] LABORATORYCLIA [id number] [address] CASE MANAGEMon 06-08-2021 CASE MANAGEM Normal [facility] CBC panel Auto (Bld)on 06-08 Erythrocyte distribution width (RBC) [Ratio] 16.0 % High 11.5-15.0 [facility] Comment on above: Order Comment: Speci men Type: BLOOD SPECIMEN Performed By: #### 5 8410-2 ####[facility] [place] LABORATORYCLIA [id number] [address] Hematocrit (Bld) [Volume fraction] 38.4 % Low 39.0-51.0 [facility] Comment on above: Order Comment: Speci men Type: BLOOD SPECIMEN Performed By: #### 5 8410-2 ####[facility] [place] LABORATORYCLIA [id number] [address] Hemoglobin (Bld) [Mass/Vol] 12.1 g/dL Low 13.0-17.0 [facility] Comment on above: Order Comment: Speci men Type: BLOOD SPECIMEN Performed By: #### 5 8410-2 ####[facility] [place] LABORATORYCLIA [id number] [address] MCH (RBC) [Entitic mass] 28.3 pg Normal 26.0-34.0 [facility] Comment on above: Order Comment: Speci men Type: BLOOD SPECIMEN Performed By: #### 5 8410-2 ####[facility] [place] LABORATORYCLIA [id number] [address] MCHC (RBC) [Mass/Vol] 31.5 g/dL Normal 30.5-36.0 [facility] Comment on above: Order Comment: Speci men Type: BLOOD SPECIMEN Performed By: #### 5 8410-2 ####[facility] [place] LABORATORYCLIA [id number] [address] MCV (RBC) [Entitic vol] 89.9 fL Normal 80.0-100.0 [facility] Comment on above: Order Comment: Speci men Type: BLOOD SPECIMEN Performed By: #### 5 8410-2 ####[facility] [place] LABORATORYCLIA [id number] [address] Nucleated RBC (Bld) [#/Vol] 10*3/uL Normal <0.01 [facility] Comment on above: Order Comment: Speci men Type: BLOOD SPECIMEN Performed By: #### 5 8410-2 ####[facility] [place] LABORATORYCLIA [id number] [address] Platelet mean volume (Bld) [Entitic vol] 10.3 fL Normal 9.0-12.7 [facility] Comment on above: Order Comment: Speci men Type: BLOOD SPECIMEN Performed By: #### 5 8410-2 ####[facility] [place] LABORATORYCLIA [id number] [address] Platelets (Bld) [#/Vol] 236 10*3/uL Normal 150-400 [facility] Comment on above: Order Comment: Speci men Type: BLOOD SPECIMEN Performed By: #### 5 8410-2 ####[facility] [place] LABORATORYCLIA [id number] [address] OF [facility] RBC (Bld) [#/Vol] 4.27 10*6/uL Normal 4.20-6.00 [facility] Comment on above: Order Comment: Speci men Type: BLOOD SPECIMEN Performed By: #### 5 8410-2 ####[facility] [place] LABORATORYCLIA [id number] [address] WBC (Bld) [#/Vol] 11.06 10*3/uL High 3.70-11.00 [facility] Comment on above: Order Comment: Speci men Type: BLOOD SPECIMEN Performed By: #### 5 8410-2 ####[facility] [place] LABORATORYCLIA [id number] [place], [place] [address] [place] [address] CONSULT PROGon 06-08-2021 CONSULT PROG Normal [facility] CT BRAIN WO IVCONon 06-08-19 CT BRAIN WO IVCON Normal [facility] Magnesium SerPl-mCncon 06-08 Magnesium [Mass/Vol] 2.8 mg/dL High 1.7-2.3 [facility] Comment on above: Order Comment: Speci men Type: BLOOD SPECIMEN Performed By: #### 2 4321-2, 2777-1, 30197-8 ####[facility] [place] LABORATORYCLIA [id number] [address] Microorganism Spec Culton Microorganism identified Cx Nom (Unsp spec) CULTURE, FUNGAL: No Fungus isolated after 28 days FUNGAL SMEAR: No fungus seen [facility] Comment on above: Performed By: #### 1 1475-1 ####[facility] [place] LABORATORYCLIA [id number] [address] NURSING PROGon 06-08-2021 NURSING PROG Normal [facility] OPERATIVE NOon 06-08-2021 OPERATIVE NO Normal [facility] OPERATIVE NO [facility] PT panel Coag (PPP)on 2021 INR Coag (PPP) [Relative time] 1.1 {INR} Normal 0.9-1.3 [facility] Comment on above: Order Comment: Speci men Type: BLOOD SPECIMEN Result Comment: Yris min K Antagonist (VKA) Therapeutic Range: INR 2 to 3 (Target INR of 2.5)Note: For patients treated with VKA drugs, such as warfarin, the [place] [employer] 2012 Guideline recommends [...] al. Chest 2012, 141:7S-47SNishimura RA, et al. [facility] 2017, 70: 252-289 Performed By: #### 3 4528-0, 31626-4 ####[facility] [place] LABORATORYCLIA [id number] [address] STATES OF [facility] PT Coag (PPP) [Time] 11.9 s Normal 9.7-13.0 [facility] Comment on above: Order Comment: Speci men Type: BLOOD SPECIMEN Performed By: #### 3 4528-0, 53231-0 ####[facility] [place] LABORATORYCLIA [id number] [address] STATES OF [facility] Phosphate SerPl-mCncon 06-08 Phosphate [Mass/Vol] 2.3 mg/dL Low 2.7-4.8 [facility] Comment on above: Order Comment: Speci men Type: BLOOD SPECIMEN Performed By: #### 2 4321-2, 2777-1, 63181-9 ####[facility] [place] LABORATORYCLIA [id number] [address] STATES [facility] aPTT PPPon 06-08-2021 aPTT Coag (PPP) [Time] 24.2 s Normal 23.0-32.4 [facility] Comment on above: Order Comment: Speci men Type: BLOOD SPECIMEN Performed By: #### 3 4528-0, 14556-4 ####[facility] [place] LABORATORYCLIA [id number] [address] [place] ALLIED HEALTHon 06-07-2021 ALLIED HEALTH Normal [facility] ALLIED HEALTH Normal [facility] ALLIED HEALTH Normal [facility] Bacteria CSF Culton 06-07-19 22 Bacteria identified Cx Nom (CSF) CULTURE, CSF: No growth 14 days GRAM STAIN: No organisms seen Rare Mononuclear cells Rare Polymorphonuclear leukocytes Gram stain performed on cytospun specimen. Normal [facility] Comment on above: Performed By: #### 6 06-4 ####[facility]ATORYCLIA [id number] [address] [place] Basic metabolic 2000 panelon 06-07-2021 Anion gap [Moles/Vol] 9 mmol/L Normal 9-18 [facility] Comment on above: Order Comment: Speci men Type: BLOOD SPECIMEN Performed By: #### 1 9123-9, 2777-, 27932-3 ####[facility]ATORYCLIA [id number] [address] STATES OF [facility] Calcium [Mass/Vol] 8.8 mg/dL Normal 8.5-10.2 [facility] Comment on above: Order Comment: Speci men Type: BLOOD SPECIMEN Performed By: #### 1 9123-9, 2776-05, 44055-2 ####[facility] [place] LABORATORYCLIA [id number] [address] STATES OF [facility] Chloride [Moles/Vol] 111 mmol/L High 97-105 [facility] Comment on above: Order Comment: Speci men Type: BLOOD SPECIMEN Performed By: #### 1 9123-9, 27711-04, 89099-4 ####[facility] [place] LABORATORYCLIA [id number] [address] STATES OF [facility] CO2 [Moles/Vol] 27 mmol/L Normal 22-30 [facility] Comment on above: Order Comment: Speci men Type: BLOOD SPECIMEN Performed By: #### 1 9123-9, 27711-04, 22158-8 ####[facility]ORYCLIA [id number] [address] [place] Creatinine [Mass/Vol] 0.66 mg/dL Low 0.73-1.22 [facility] Comment on above: Order Comment: Speci men Type: BLOOD SPECIMEN Performed By: #### 1 9123-9, 2777, 69660-9 ####[facility]ATORYCLIA [id number] [place] [address] [place] GFR/1.73 sq M.predicted MDRD (S/P/Bld) [Vol rate/Area] mL/min/{1.73_m2} Normal [facility] Comment on above: [...] GFR. Performed By: #### 1 9123-9, 2777-1, 11744-2 ####[facility]ITALCLIA [id number] [place] [address] [place] Glucose [Mass/Vol] 123 mg/dL High 74-99 [facility] Comment on above: Order Comment: Speci men Type: BLOOD SPECIMEN Result Comment: The [place] Diabetes Association (ADA) provides guidance for cutoff [...] Standards of Medical Care in Diabetes 2016, [place] [employer]. Diabetes Care. 2016.39(Suppl 1). Performed By: #### 1 9123-9, 2777-1, 49796-7 ####[facility] [place] LABORATORYCLIA [id number] [place] [address] [place] Potassium [Moles/Vol] 3.6 mmol/L Low 3.7-5.1 [facility] Comment on above: Order Comment: Speci men Type: BLOOD SPECIMEN Performed By: #### 1 9123-9, 2777, 14535-1 ####[facility] [place] LABORATORYCLIA [id number] [address] Sodium [Moles/Vol] 147 mmol/L High 136-144 [facility] Comment on above: Order Comment: Speci men Type: BLOOD SPECIMEN Performed By: #### 1 9123-9, 2777, 83579-8 ####[facility] [place] LABORATORYCLIA [id number] [address] Urea nitrogen [Mass/Vol] 30 mg/dL High 9-24 [facility] Comment on above: Order Comment: Speci men Type: BLOOD SPECIMEN Performed By: #### 1 9123-9, 2776-05, ####[facility] [place] LABORATORYCLIA [id number] [address] CBC W Auto Differential pane l (Bld)on 06-07-2021 Basophils (Bld) [#/Vol] 10*3/uL Normal <0.11 [facility] Comment on above: Order Comment: Speci men Type: BLOOD SPECIMEN Performed By: #### 5 7021-8 ####[facility] [place] LABORATORYCLIA [id number] [address] Basophils/100 WBC (Bld) 0.2 % Normal [facility] Comment on above: Order Comment: Speci men Type: BLOOD SPECIMEN Performed By: #### 5 7021-8 ####[facility] [place] LABORATORYCLIA [id number] [address] Differential cell count method Nom (Bld) Auto Normal [facility] Comment on above: Order Comment: Speci men Type: BLOOD SPECIMEN Performed By: #### 5 7021-8 ####[facility]ATORYCLIA [id number] [address] STATES OF [facility] Eosinophils (Bld) [#/Vol] 0.06 10*3/uL Normal <0.46 [facility] Comment on above: Order Comment: Speci men Type: BLOOD SPECIMEN Performed By: #### 5 7021-8 ####[facility]ATORYCLIA [id number] [address] Eosinophils/100 WBC (Bld) 0.6 % Normal [facility] Comment on above: Order Comment: Speci men Type: BLOOD SPECIMEN Performed By: #### 5 7021-8 ####[facility]ATORYCLIA [id number] [address] Erythrocyte distribution width (RBC) [Ratio] 15.8 % High 11.5-15.0 [facility] Comment on above: Order Comment: Speci men Type: BLOOD SPECIMEN Performed By: #### 5 7021-8 ####[facility] LABORATORYCLIA [id number] [address] Hematocrit (Bld) [Volume fraction] 40.4 % Normal 39.0-51.0 [facility] Comment on above: Order Comment: Speci men Type: BLOOD SPECIMEN Performed By: #### 5 7021-8 ####[facility] [place] LABORATORYCLIA [id number] [address] Hemoglobin (Bld) [Mass/Vol] 12.4 g/dL Low 13.0-17.0 [facility] Comment on above: Order Comment: Speci men Type: BLOOD SPECIMEN Performed By: #### 5 7021-8 ####[facility]ATORYCLIA [id number] [address] IMMATURE GRAN % 0.7 % Normal [facility] Comment on above: Order Comment: Speci men Type: BLOOD SPECIMEN Performed By: #### 5 7021-8 ####[facility]ORATORYCLIA [id number] [address] IMMATURE GRAN ABS 0.07 k/uL Normal <0.10 [facility] Comment on above: Order Comment: Speci men Type: BLOOD SPECIMEN Performed By: #### 5 7021-8 ####[facility] LABORATORYCLIA [id number] [address] Lymphocytes (Bld) [#/Vol] 1.43 10*3/uL Normal 1.00-4.00 [facility] Comment on above: Order Comment: Speci men Type: BLOOD SPECIMEN Performed By: #### 5 7021-8 ####[facility] [place] LABORATORYCLIA [id number] [address] Lymphocytes/100 WBC (Bld) 14.1 % Normal [facility] Comment on above: Order Comment: Speci men Type: BLOOD SPECIMEN Performed By: #### 5 7021-8 ####[facility] [place] LABORATORYCLIA [id number] [address] MCH (RBC) [Entitic mass] 27.6 pg Normal 26.0-34.0 [facility] Comment on above: Order Comment: Speci men Type: BLOOD SPECIMEN Performed By: #### 5 7021-8 ####[facility] [place] LABORATORYCLIA [id number] [address] MCHC (RBC) [Mass/Vol] 30.7 g/dL Normal 30.5-36.0 [facility] Comment on above: Order Comment: Speci men Type: BLOOD SPECIMEN Performed By: #### 5 7021-8 ####[facility] [place] LABORATORYCLIA [id number] [address] MCV (RBC) [Entitic vol] 89.8 fL Normal 80.0-100.0 [facility] Comment on above: Order Comment: Speci men Type: BLOOD SPECIMEN Performed By: #### 5 7021-8 ####[facility] [place] LABORATORYCLIA [id number] [address] Monocytes (Bld) [#/Vol] 0.82 10*3/uL Normal <0.87 [facility] Comment on above: Order Comment: Speci men Type: BLOOD SPECIMEN Performed By: #### 5 7021-8 ####[facility] [place] LABORATORYCLIA [id number] [address] Monocytes/100 WBC (Bld) 8.1 % Normal [facility] Comment on above: Order Comment: Speci men Type: BLOOD SPECIMEN Performed By: #### 5 7021-8 ####[facility] LABORATORYCLIA [id number] [address] Neutrophils (Bld) [#/Vol] 7.74 10*3/uL High 1.45-7.50 [facility] Comment on above: Order Comment: Speci men Type: BLOOD SPECIMEN Performed By: #### 5 7021-8 ####[facility] [place] LABORATORYCLIA [id number] [address] Neutrophils/100 WBC (Bld) 76.3 % Normal [facility] Comment on above: Order Comment: Speci men Type: BLOOD SPECIMEN Performed By: #### 5 7021-8 ####[facility] [place] [facility]ORATORYCLIA [id number] [address] Nucleated RBC (Bld) [#/Vol] 10*3/uL Normal <0.01 [facility] Comment on above: Order Comment: Speci men Type: BLOOD SPECIMEN Performed By: #### 5 7021-8 ####[facility] LABORATORYCLIA [id number] [address] Nucleated RBC/100 WBC (Bld) [Ratio] 0.0 /100 WBC Normal 0.0 [facility] Comment on above: Order Comment: Speci men Type: BLOOD SPECIMEN Performed By: #### 5 7021-8 ####[facility] [place] LABORATORYCLIA [id number] [address] Platelet mean volume (Bld) [Entitic vol] 10.4 fL Normal 9.0-12.7 [facility] Comment on above: Order Comment: Speci men Type: BLOOD SPECIMEN Performed By: #### 5 7021-8 ####[facility] [place] [facility]ORATORYCLIA [id number] [address] Platelets (Bld) [#/Vol] 236 10*3/uL Normal 150-400 [facility] Comment on above: Order Comment: Speci men Type: BLOOD SPECIMEN Performed By: #### 5 7021-8 ####[facility] LABORATORYCLIA [id number] [address] RBC (Bld) [#/Vol] 4.50 10*6/uL Normal 4.20-6.00 [facility] Comment on above: Order Comment: Speci men Type: BLOOD SPECIMEN Performed By: #### 5 7021-8 ####[facility] [place] [facility]ORATORYCLIA [id number] [address] WBC (Bld) [#/Vol] 10.14 10*3/uL Normal 3.70-11.00 [facility] Comment on above: Order Comment: Speci men Type: BLOOD SPECIMEN Performed By: #### 5 7021-8 ####[facility] [place] [facility]ORATORYCLIA [id number] [address] CBC panel Auto (Bld)on 06-07 Erythrocyte distribution width (RBC) [Ratio] 15.8 % High 11.5-15.0 [facility] Comment on above: Order Comment: Speci men Type: BLOOD SPECIMEN Performed By: #### 5 8410-2 ####[facility] [place] [facility]ORATORYCLIA [id number] [address] Hematocrit (Bld) [Volume fraction] 40.0 % Normal 39.0-51.0 [facility] Comment on above: Order Comment: Speci men Type: BLOOD SPECIMEN Performed By: #### 5 8410-2 ####[facility] [place] [facility]ORATORYCLIA [id number] [address] Hemoglobin (Bld) [Mass/Vol] 12.3 g/dL Low 13.0-17.0 [facility] Comment on above: Order Comment: Speci men Type: BLOOD SPECIMEN Performed By: #### 5 8410-2 ####[facility] [place] [facility]ORATORYCLIA [id number] [address] MCH (RBC) [Entitic mass] 27.3 pg Normal 26.0-34.0 [facility] Comment on above: Order Comment: Speci men Type: BLOOD SPECIMEN Performed By: #### 5 8410-2 ####[facility] [place] [facility]ORATORYCLIA [id number] [address] MCHC (RBC) [Mass/Vol] 30.8 g/dL Normal 30.5-36.0 [facility] Comment on above: Order Comment: Speci men Type: BLOOD SPECIMEN Performed By: #### 5 8410-2 ####[facility] [place] [facility]ORATORYCLIA [id number] [address] MCV (RBC) [Entitic vol] 88.7 fL Normal 80.0-100.0 [facility] Comment on above: Order Comment: Speci men Type: BLOOD SPECIMEN Performed By: #### 5 8410-2 ####[facility] [facility]ATORYCLIA [id number] [address] Nucleated RBC (Bld) [#/Vol] 10*3/uL Normal <0.01 [facility] Comment on above: Order Comment: Speci men Type: BLOOD SPECIMEN Performed By: #### 5 8410-2 ####[facility] [facility]ATORYCLIA [id number] [address] Platelet mean volume (Bld) [Entitic vol] 10.0 fL Normal 9.0-12.7 [facility] Comment on above: Order Comment: Speci men Type: BLOOD SPECIMEN Performed By: #### 5 8410-2 ####[facility]ATORYCLIA [id number] [address] Platelets (Bld) [#/Vol] 234 10*3/uL Normal 150-400 [facility] Comment on above: Order Comment: Speci men Type: BLOOD SPECIMEN Performed By: #### 5 8410-2 ####[facility]ATORYCLIA [id number] [address] [place] RBC (Bld) [#/Vol] 4.51 10*6/uL Normal 4.20-6.00 [facility] Comment on above: Order Comment: Speci men Type: BLOOD SPECIMEN Performed By: #### 5 8410-2 ####[facility]ATORYCLIA [id number] [address] WBC (Bld) [#/Vol] 11.47 10*3/uL High 3.70-11.00 [facility] Comment on above: Order Comment: Speci men Type: BLOOD SPECIMEN Performed By: #### 5 8410-2 ####[facility]ORYCLIA [id number] [address] CONSULT PROGon 06-07-2021 CONSULT PROG Normal [facility] CONSULT PROG Normal [facility] CSF MANUAL DIFFon 06-07-2021 DIF TTL, CSF 92 cells counted Normal [facility] Comment on above: Order Comment: Speci men Type: CEREBROSPINAL FLUID Performed By: #### 3 4563-7, [id number], [id number] ####[facility]ATORYCLIA [id number] [address] EOSIN%, CSF 1 % Normal [facility] Comment on above: Order Comment: Speci men Type: CEREBROSPINAL FLUID Performed By: #### 3 4563-7, [id number], [id number] ####[facility]ATORYCLIA [id number] [address] [place] LYMPH%, CSF 21 % Low 50-90 [facility] Comment on above: Order Comment: Speci men Type: CEREBROSPINAL FLUID Performed By: #### 3 4563-7, [id number], [id number] ####[facility]ORYCLIA [id number] [address] MACRO%, CSF 27 % High <1 [facility] Comment on above: Order Comment: Speci men Type: CEREBROSPINAL FLUID Result Comment: Tati ected result: Previously reported as 22 % on 06/07/2021 at 1:49 PM EST. Performed By: #### 3 4563-7, [id number], [id number] ####[facility]ATORYCLIA [id number] [address] STATES [place] MONO%, CSF 36 % Normal 10-50 [facility] Comment on above: Order Comment: Speci men Type: CEREBROSPINAL FLUID Performed By: #### 3 4563-7, [id number], [id number] ####[facility]ORATORYCLIA [id number] [address] [place]%, CSF 11 % High 0-3 [facility] Comment on above: Order Comment: Speci men Type: CEREBROSPINAL FLUID Performed By: #### 3 4563-7, [id number], [id number] ####[facility] LABORATORYCLIA [id number] [address] [place]%, CSF 4 % Normal [facility] Comment on above: Order Comment: Speci men Type: CEREBROSPINAL FLUID Result Comment: Path review to follow.Corrected result: Previously reported as 10 % on 06/07/2021 at 1:49 PM EST. Performed By: #### 3 4563-7, [id number], [id number] ####[facility]ATORYCLIA [id number] [address] CSF PATHOLOGIST INTERP (LAB REFLEX ORDER-NO BILL)on 06-07-2021 CSF STAFF REVIEW Negative for maligna nt cells. Rare immature myeloid or ventricular lining cells. Normal [facility] Comment on above: Order Comment: Speci men Type: CEREBROSPINAL FLUID Performed By: #### 3 4563-7, [id number], [id number] ####[facility] LABORATORYCLIA [id number] [address] Pathologist name Reviewed by Eloise rebolledo MD [facility] Comment on above: Order Comment: Speci men Type: CEREBROSPINAL FLUID Performed By: #### 3 4563-7, [id number], [id number] ####[facility]ORYCLIA [id number] [address] BRAIN WO IVCONon 06-07-19 CT BRAIN WO IVCON Normal [facility] CT BRAIN WO IVCON Normal [facility] Cell count panel (CSF)on Clarity (CSF) Clear Normal Clear [facility] Comment on above: Order Comment: Speci men Type: CEREBROSPINAL FLUID Performed By: #### 3 4563-7, [id number], [id number] ####[facility] LABORATORYCLIA [id number] [address] Clarity (Unsp spec) Not Indicated Normal Clear [facility] Comment on above: Order Comment: Speci men Type: CEREBROSPINAL FLUID Performed By: #### 3 4563-7, [id number], [id number] ####[facility] LABORATORYCLIA [id number] [address] Color (CSF) Colorless Normal Colorless [facility] Comment on above: Order Comment: Speci men Type: CEREBROSPINAL FLUID Performed By: #### 3 4563-7, [id number], [id number] ####[facility] LABORATORYCLIA [id number] [address] Color (Spun CSF) Not Indicated Normal Colorless [facility] Comment on above: Order Comment: Speci men Type: CEREBROSPINAL FLUID Performed By: #### 3 4563-7, [id number], [id number] ####[facility] LABORATORYCLIA [id number] [address] CSF TUBE NUMBER [employer] Normal [facility] Comment on above: Order Comment: Speci men Type: CEREBROSPINAL FLUID Performed By: #### 3 4563-7, [id number], [id number] ####[facility] LABORATORYCLIA [id number] [address] RBC Manual cnt (CSF) [#/Vol] 42 cells/uL High 0-5 [facility] Comment on above: Order Comment: Speci men Type: CEREBROSPINAL FLUID Performed By: #### 3 4563-7, [id number], [id number] ####[facility] LABORATORYCLIA [id number] [address] STATES OF [facility] WBC Manual cnt (CSF) [#/Vol] 1 cells/uL Normal 0-5 [facility] Comment on above: Order Comment: Speci men Type: CEREBROSPINAL FLUID Performed By: #### 3 4563-7, [id number], [id number] ####[facility] LABORATORYCLIA [id number] [address] [place] Glucose CSF-mCncon 2 Glucose (CSF) [Mass/Vol] 92 mg/dL High 40-70 [facility] Comment on above: Order Comment: Speci men Type: CEREBROSPINAL FLUID Result Comment: Lumb ar CSF glucose values of healthy patients are approximately 60% of the plasma values and must always be compared with a concurrently measured plasma value for adequate clinical interpretation.References: 1. Glucose HK (GLUC3) [package insert V 12.0 [place]]. [employer], [place], [place]. September 2015. 2. Michelle Moore, Loki HGarfield (2015). Chapter 7: Glucose and Lactate. F. Irina rose al.(eds.), Cerebrospinal Fluid in Clinical Neurology. [place]: [employer]. Performed By: #### 2 880-3, 2342-4 ####[facility] LABORATORYCLIA [id number] [address] Lactate (Bld) [Moles/Vol]on 06-07-2021 Lactate [Moles/Vol] 0.9 mmol/L Normal 0.5-2.2 [facility] Comment on above: Order Comment: Speci men Type: BLOOD SPECIMEN Performed By: #### 3 2693-4 ####[facility] LABORATORYCLIA [id number] [address] OF [facility] Lipase SerPl-cCncon 06-07-19 22 Lipase [Catalytic activity/Vol] 35 U/L Normal 16-61 [facility] Comment on above: Order Comment: Speci men Type: BLOOD SPECIMEN Performed By: #### 3 040-3, PROCAL ####[facility]ORATORYCLIA [id number] [address] OF [facility] Magnesium SerPl-ncon 06-07 Magnesium [Mass/Vol] 2.7 mg/dL High 1.7-2.3 [facility] Comment on above: Order Comment: Speci men Type: BLOOD SPECIMEN Performed By: #### 1 9123-9, 2777-1, 86038-9 ####[facility]ITALCL[facility] [id number] [address] PROCALCITONIN (LAB)on 2021 Procalcitonin [Mass/Vol] 0.13 ng/mL High <0.09 [facility] Comment on above: Order Comment: Speci men Type: BLOOD SPECIMEN Result Comment: For a guided interpretation of test results, please visit the Change in Procalcitonin Calculator, [email or web address]. Performed By: #### 3 040-3, PROCAL ####[facility]IA [id number] [address] Phosphate [facility]Pl[facility] Phosphate [Mass/Vol] 1.9 mg/dL Low 2.7-4.8 [facility] Comment on above: Order Comment: Speci men Type: BLOOD SPECIMEN Performed By: #### 1 9123-9, 2777-1, 95835-0 ####[facility] LABORATORYCLIA [id number] [address] [place] Prot CSF-mCncon 06-07-2021 Protein (CSF) [Mass/Vol] 33 mg/dL Normal 15-45 [facility] Comment on above: Order Comment: Speci men Type: CEREBROSPINAL FLUID Performed By: #### 2 880-3, 2342-4 ####[facility] LABORATORYCLIA [id number] [address] [place] SARS-CoV-2 RNA Resp Ql MEGAN+p robeon 06-07-2021 SARS-CoV-2 (COVID-19) RNA MEGAN+probe Ql (Resp) COVID 19 RESULT: SARS-CoV-2 (Agent of COVID-19) Not Detected by PCR. This test has been authorized by FDA under an Emergency Use Authorization (EUA). [facility] Comment on above: Performed By: #### 9 4500-6 ####[facility]ORATORYCLIA [id number] [address] TYPE AND SCREENon 06-07-2021 ABO O Normal [facility] Comment on above: Order Comment: Speci men Type: BLOOD SPECIMEN Performed By: #### T SCR ####[facility] BLOOD BANKCLIA [id number] [address] HISTORICAL AB SCR STATUS Negative [facility] Comment on above: Order Comment: Speci men Type: BLOOD SPECIMEN Performed By: #### T SCR ####[facility]LOOD BANKCLIA [id number] [address] Rh Nom (Bld) Positive [facility] Comment on above: Order Comment: Speci men Type: BLOOD SPECIMEN Performed By: #### T SCR ####[facility]LOOD BANKCLIA [id number] [address] TYPE AND SCREEN EXPIRATION 06/10/2021 23:59 [facility] Comment on above: Order Comment: Speci men Type: BLOOD SPECIMEN Performed By: #### T SCR ####[facility] BLOOD BANKCLIA [id number] [address] Vancomycin random [Mass/Vol] on 06-07-2021 Vancomycin [Mass/Vol] 16.5 ug/mL Normal 10.0-20.0 [facility] Comment on above: Order Comment: Speci men Type: BLOOD SPECIMEN Result Comment: Refe rence ranges and high/low indicator flags are provided as general guidelines only. The treating physician must determine appropriate target levels/dosing based on the specific clinical situation. Performed By: #### 4 091-5 ####[facility] LABORATORYCLIA [id number] [place] [address] [place] XR CHEST 1V FRONTAL PORTon 0 06-07-2021 XR CHEST 1V FRONTAL PORT Normal [facility] Basic metabolic 2000 panelon 06-06-2021 Anion gap [Moles/Vol] 11 mmol/L Normal 9-18 [facility] Comment on above: Order Comment: Speci men Type: BLOOD SPECIMEN Performed By: #### 2 4321-2, , 2776-05 ####[facility] LABORATORYCLIA [id number] [address] STATES OF [facility] Calcium [Mass/Vol] 8.6 mg/dL Normal 8.5-10.2 [facility] Comment on above: Order Comment: Speci men Type: BLOOD SPECIMEN Performed By: #### 2 4321-2, , 2776-05 ####[facility] LABORATORYCLIA [id number] [address] STATES OF [facility] Chloride [Moles/Vol] 108 mmol/L High 97-105 [facility] Comment on above: Order Comment: Speci men Type: BLOOD SPECIMEN Performed By: #### 2 4321-2, , 2776-05 ####[facility] LABORATORYCLIA [id number] [address] [place] CO2 [Moles/Vol] 25 mmol/L Normal 22-30 [facility] Comment on above: Order Comment: Speci men Type: BLOOD SPECIMEN Performed By: #### 2 4321-2, , 2776-05 ####[facility]ORATORYCLIA [id number] [address] [place] Creatinine [Mass/Vol] 0.76 mg/dL Normal 0.73-1.22 [facility] Comment on above: Order Comment: Speci men Type: BLOOD SPECIMEN Performed By: #### 2 4321-2, , 2776-05 ####[facility] LABORATORYCLIA [id number] [place] [address] [place] GFR/1.73 sq M.predicted MDRD (S/P/Bld) [Vol rate/Area] mL/min/{1.73_m2} Normal [facility] Comment on above: [...] actual GFR. Performed By: #### 2 4321-2, 15233-6, 2776-05 ####[facility] LABORATORYCLIA [id number] [place] [address] [place] Glucose [Mass/Vol] 116 mg/dL High 74-99 [facility] Comment on above: Order Comment: Speci men Type: BLOOD SPECIMEN Result Comment: The [place] Diabetes Association (ADA) provides guidance for cutoff [...] Standards of Medical Care in Diabetes 2016, [employer] Diabetes Association. Diabetes Care. 2016.39(Suppl 1). Performed By: #### 2 4321-2, 04258-1, 2776-05 ####[facility] LABORATORYCLIA [id number] [place] [address] [place] Potassium [Moles/Vol] 3.5 mmol/L Low 3.7-5.1 [facility] Comment on above: Order Comment: Speci men Type: BLOOD SPECIMEN Performed By: #### 2 4321-2, , 2776-05 ####[facility]ATORYCLIA [id number] [address] Sodium [Moles/Vol] 144 mmol/L Normal 136-144 [facility] Comment on above: Order Comment: Speci men Type: BLOOD SPECIMEN Performed By: #### 2 4321-2, , 2776-05 ####[facility]ATORYCLIA [id number] [address] STATES [facility] Urea nitrogen [Mass/Vol] 31 mg/dL High 9-24 [facility] Comment on above: Order Comment: Speci men Type: BLOOD SPECIMEN Performed By: #### 2 4321-2, , 2776-05 ####[facility] LABORATORYCLIA [id number] [address] CASE MANAGEMon 06-06-2021 CASE MANAGEM Normal [facility] CBC panel Auto (Bld)on 06-06 Erythrocyte distribution width (RBC) [Ratio] 15.8 % High 11.5-15.0 [facility] Comment on above: Order Comment: Speci men Type: BLOOD SPECIMEN Performed By: #### 5 8410-2 ####[facility] LABORATORYCLIA [id number] [address] Hematocrit (Bld) [Volume fraction] 39.5 % Normal 39.0-51.0 [facility] Comment on above: Order Comment: Speci men Type: BLOOD SPECIMEN Performed By: #### 5 8410-2 ####[facility]ORYCLIA [id number] [address] OF [facility] Hemoglobin (Bld) [Mass/Vol] 12.2 g/dL Low 13.0-17.0 [facility] Comment on above: Order Comment: Speci men Type: BLOOD SPECIMEN Performed By: #### 5 8410-2 ####[facility]ATORYCLIA [id number] [place] [address] MCH (RBC) [Entitic mass] 27.8 pg Normal 26.0-34.0 [facility] Comment on above: Order Comment: Speci men Type: BLOOD SPECIMEN Performed By: #### 5 8410-2 ####[facility]ORATORYCLIA [id number] [address] MCHC (RBC) [Mass/Vol] 30.9 g/dL Normal 30.5-36.0 [facility] Comment on above: Order Comment: Speci men Type: BLOOD SPECIMEN Performed By: #### 5 8410-2 ####[facility]ORATORYCLIA [id number] [address] MCV (RBC) [Entitic vol] 90.0 fL Normal 80.0-100.0 [facility] Comment on above: Order Comment: Speci men Type: BLOOD SPECIMEN Performed By: #### 5 8410-2 ####[facility] LABORATORYCLIA [id number] [address] Nucleated RBC (Bld) [#/Vol] 10*3/uL Normal <0.01 [facility] Comment on above: Order Comment: Speci men Type: BLOOD SPECIMEN Performed By: #### 5 8410-2 ####[facility]ORATORYCLIA [id number] [address] Platelet mean volume (Bld) [Entitic vol] 10.4 fL Normal 9.0-12.7 [facility] Comment on above: Order Comment: Speci men Type: BLOOD SPECIMEN Performed By: #### 5 8410-2 ####[facility]ORATORYCLIA [id number] [address] Platelets (Bld) [#/Vol] 236 10*3/uL Normal 150-400 [facility] Comment on above: Order Comment: Speci men Type: BLOOD SPECIMEN Performed By: #### 5 8410-2 ####[facility]ATORYCLIA [id number] [address] RBC (Bld) [#/Vol] 4.39 10*6/uL Normal 4.20-6.00 [facility] Comment on above: Order Comment: Speci men Type: BLOOD SPECIMEN Performed By: #### 5 8410-2 ####[facility]ATORYCLIA [id number] [address] WBC (Bld) [#/Vol] 9.74 10*3/uL Normal 3.70-11.00 [facility] Comment on above: Order Comment: Speci men Type: BLOOD SPECIMEN Performed By: #### 5 8410-2 ####[facility]ORATORYCLIA [id number] [address] CONSULT PROGon 06-06-2021 CONSULT PROG Normal [facility] CONSULT PROG Normal [facility] Magnesium SerPl-mCncon 06-06 Magnesium [Mass/Vol] 2.5 mg/dL High 1.7-2.3 [facility] Comment on above: Order Comment: Speci men Type: BLOOD SPECIMEN Performed By: #### 2 4321-2, 24680-2, 2777-1 ####[facility]ORATORYCLIA [id number] [address] PT panel Coag (PPP)on 2021 INR Coag (PPP) [Relative time] 1.0 {INR} Normal 0.9-1.3 [facility] Comment on above: Order Comment: Speci men Type: BLOOD SPECIMEN Result Comment: Yris min K Antagonist (VKA) Therapeutic Range: INR 2 to 3 (Target INR of 2.5)Note: For patients treated with VKA drugs, such as warfarin, the [place] [employer] 2012 Guideline recommends [...] al. Chest 2012, 141:7S-47SAlba RA, et al. [facility] 2017, 70: 252-289 Performed By: #### 3 4528-0, 38265-1 ####[facility] LABORATORYCLIA [id number] [address] OF [facility] PT Coag (PPP) [Time] 11.4 s Normal 9.7-13.0 [facility] Comment on above: Order Comment: Speci men Type: BLOOD SPECIMEN Performed By: #### 3 4528-0, 42753-0 ####[facility] LABORATORYCLIA [id number] [address] OF [facility] Phosphate SerPl-mCncon 06-06 Phosphate [Mass/Vol] 2.3 mg/dL Low 2.7-4.8 [facility] Comment on above: Order Comment: Speci men Type: BLOOD SPECIMEN Performed By: #### 2 4321-2, 31814-8, 2777-1 ####[facility] LABORATORYCLIA [id number] [address] THROMBOGRAPH HEPARINASE PANE Kiel 06-06-2021 Clot angle after addition of heparinase TEG (Bld) [Angle] 70.2 degrees Normal 47.0-74.0 [facility] Comment on above: Order Comment: Speci men Type: BLOOD SPECIMEN Performed By: #### T EGHPP ####[facility] LABORATORYCLIA [id number] [address] Clot Lysis 30 Min post maximum clot amplitude TEG (Bld) [Length fraction] 0.0 % Normal 0.0-8.0 [facility] Comment on above: Order Comment: Speci men Type: BLOOD SPECIMEN Performed By: #### T EGHPP ####[facility] LABORATORYCLIA [id number] [place] [address] Clotting time after addition of heparinase TEG (Bld) 5.7 minutes Normal 4.0-10.0 [facility] Comment on above: Order Comment: Speci men Type: BLOOD SPECIMEN Performed By: #### T EGHPP ####[facility] LABORATORYCLIA [id number] [address] OF [facility] Coagulation index TEG Qn (Bld) 1.2 Normal -4.6-3.2 [facility] Comment on above: Order Comment: Speci men Type: BLOOD SPECIMEN Result Comment: The Coagulation Index, a secondary parameter, is labeled by the presetter operator as for "research use only" and is used per the presetter operator's instructions. Its performance characteristics were determined by [facility]'s Isrrael Chris [facility] Pathology and Laboratory Medicine [place] in a manner consistent with CLIA requirements. This test has not been cleared by the U.S. Food and Drug Administration. Performed By: #### T EGHPP ####[facility] LABORATORYCLIA [id number] [address] Maximum clot firmness after addition of heparinase TEG (Bld) [Length] 64.0 mm Normal 51.0-75.0 [facility] Comment on above: Order Comment: Speci men Type: BLOOD SPECIMEN Performed By: #### T EGHPP ####[facility] LABORATORYCLIA [id number] [address] OF [facility] Vancomycin random [Mass/Vol] on 06-06-2021 Vancomycin [Mass/Vol] 17.4 ug/mL Normal 10.0-20.0 [facility] Comment on above: Order Comment: Speci men Type: BLOOD SPECIMEN Result Comment: Refe rence ranges and high/low indicator flags are provided as general guidelines only. The treating physician must determine appropriate target levels/dosing based on the specific clinical situation. Performed By: #### 4 091-5 ####[facility] LABORATORYCLIA [id number] [address] STATES OF [facility] Vancomycin [Mass/Vol] 13.5 ug/mL Normal 10.0-20.0 [facility] Comment on above: Order Comment: Speci men Type: BLOOD SPECIMEN Result Comment: Refe rence ranges and high/low indicator flags are provided as general guidelines only. The treating physician must determine appropriate target levels/dosing based on the specific clinical situation. Performed By: #### 4 091-5 ####[facility]ORYCLIA [id number] [address] OF [facility] aPTT PPPon 06-06-2021 aPTT Coag (PPP) [Time] 27.8 s Normal 23.0-32.4 [facility] Comment on above: Order Comment: Speci men Type: BLOOD SPECIMEN Performed By: #### 3 4528-0, 10719-1 ####[facility] LABORATORYCLIA [id number] [address] OF [facility] Basic metabolic 2000 panelon 06-05-2021 Anion gap [Moles/Vol] 11 mmol/L Normal 9-18 [facility] Comment on above: Order Comment: Speci men Type: BLOOD SPECIMEN Performed By: #### 1 9123-9, 71136-9, 2776- ####[facility]ORYCLIA [id number] [place] [address] [place] Calcium [Mass/Vol] 8.6 mg/dL Normal 8.5-10.2 [facility] Comment on above: Order Comment: Speci men Type: BLOOD SPECIMEN Performed By: #### 1 9123-9, 72611-9, 2776- ####[facility]ORYCLIA [id number] [place] [address] [place] Chloride [Moles/Vol] 108 mmol/L High 97-105 [facility] Comment on above: Order Comment: Speci men Type: BLOOD SPECIMEN Performed By: #### 1 9123-9, 85634-3, 7- ####[facility]ATORYCLIA [id number] [place] [address] [place] CO2 [Moles/Vol] 25 mmol/L Normal 22-30 [facility] Comment on above: Order Comment: Speci men Type: BLOOD SPECIMEN Performed By: #### 1 9123-9, 61239-4, 2776-05 ####[facility] LABORATORYCLIA [id number] [address] STATES OF [facility] Creatinine [Mass/Vol] 0.77 mg/dL Normal 0.73-1.22 [facility] Comment on above: Order Comment: Speci men Type: BLOOD SPECIMEN Performed By: #### 1 9123-9, 64403-3, 2776-05 ####[facility] LABORATORYCLIA [id number] [address] [place] GFR/1.73 sq M.predicted MDRD (S/P/Bld) [Vol rate/Area] mL/min/{1.73_m2} Normal [facility] Comment on above: [...] actual GFR. Performed By: #### 1 9123-9, 98461-6, 2776-05 ####[facility] [id number] [address] [place] Glucose [Mass/Vol] 96 mg/dL Normal 74-99 [facility] Comment on above: Order Comment: Speci men Type: BLOOD SPECIMEN Result Comment: The [place] Diabetes Association (ADA) provides guidance for cutoff [...] Standards of Medical Care in Diabetes 2016, [place] Diabetes Association. Diabetes Care. 2016.39(Suppl 1). Performed By: #### 1 9123-9, 25788-8, 2776- ####[facility] LABORATORYCLIA [id number] [address] OF [facility] Potassium [Moles/Vol] 3.9 mmol/L Normal 3.7-5.1 [facility] Comment on above: Order Comment: Speci men Type: BLOOD SPECIMEN Performed By: #### 1 9123-9, 70974-8, 2776-05 ####[facility] LABORATORYCLIA [id number] [address] Sodium [Moles/Vol] 144 mmol/L Normal 136-144 [facility] Comment on above: Order Comment: Speci men Type: BLOOD SPECIMEN Performed By: #### 1 9, 82499-4, 2776-05 ####[facility] LABORATORYCLIA [id number] [address] Urea nitrogen [Mass/Vol] 26 mg/dL High 9-24 [facility] Comment on above: Order Comment: Speci men Type: BLOOD SPECIMEN Performed By: #### 1 9123-9, 34269-8, 2776-05 ####[facility] LABORATORYCLIA [id number] [address] CBC panel Auto (Bld)on 06-05 Erythrocyte distribution width (RBC) [Ratio] 15.9 % High 11.5-15.0 [facility] Comment on above: Order Comment: Speci men Type: BLOOD SPECIMEN Performed By: #### 5 8410-2 ####[facility]ORATORYCLIA [id number] [address] Hematocrit (Bld) [Volume fraction] 39.6 % Normal 39.0-51.0 [facility] Comment on above: Order Comment: Speci men Type: BLOOD SPECIMEN Performed By: #### 5 8410-2 ####[facility]ATORYCLIA [id number] [address] Hemoglobin (Bld) [Mass/Vol] 12.3 g/dL Low 13.0-17.0 [facility] Comment on above: Order Comment: Speci men Type: BLOOD SPECIMEN Performed By: #### 5 8410-2 ####[facility]ATORYCLIA [id number] [address] MCH (RBC) [Entitic mass] 28.1 pg Normal 26.0-34.0 [facility] Comment on above: Order Comment: Speci men Type: BLOOD SPECIMEN Performed By: #### 5 8410-2 ####[facility]ORYCLIA [id number] [address] MCHC (RBC) [Mass/Vol] 31.1 g/dL Normal 30.5-36.0 [facility] Comment on above: Order Comment: Speci men Type: BLOOD SPECIMEN Performed By: #### 5 8410-2 ####[facility]ATORYCLIA [id number] [address] MCV (RBC) [Entitic vol] 90.4 fL Normal 80.0-100.0 [facility] Comment on above: Order Comment: Speci men Type: BLOOD SPECIMEN Performed By: #### 5 8410-2 ####[facility]ATORYCLIA [id number] [address] Nucleated RBC (Bld) [#/Vol] 10*3/uL Normal <0.01 [facility] Comment on above: Order Comment: Speci men Type: BLOOD SPECIMEN Performed By: #### 5 8410-2 ####[facility]ATORYCLIA [id number] [address] Platelet mean volume (Bld) [Entitic vol] 10.5 fL Normal 9.0-12.7 [facility] Comment on above: Order Comment: Speci men Type: BLOOD SPECIMEN Performed By: #### 5 8410-2 ####[facility]ATORYCLIA [id number] [address] Platelets (Bld) [#/Vol] 224 10*3/uL Normal 150-400 [facility] Comment on above: Order Comment: Speci men Type: BLOOD SPECIMEN Performed By: #### 5 8410-2 ####[facility] LABORATORYCLIA [id number] [address] RBC (Bld) [#/Vol] 4.38 10*6/uL Normal 4.20-6.00 [facility] Comment on above: Order Comment: Speci men Type: BLOOD SPECIMEN Performed By: #### 5 8410-2 ####[facility] LABORATORYCLIA [id number] [address] WBC (Bld) [#/Vol] 9.66 10*3/uL Normal 3.70-11.00 [place] [facility] Comment on above: Order Comment: Speci men Type: BLOOD SPECIMEN Performed By: #### 5 8410-2 ####[facility]ORATORYCLIA [id number] [address] CONSULT PROGon 06-05-2021 CONSULT PROG Normal [facility] Gas and Carbon monoxide pane l (BldV)on 06-05-2021 Base excess Calc (BldV) [Moles/Vol] 1.8 mmol/L Normal 0-2 [facility] Comment on above: Order Comment: Speci men Type: VENOUS BLOOD SPECIMEN Performed By: #### 2 4344-4 ####[facility]ATORYCLIA [id number] [address] Body temperature 100.4 [degF] Normal [facility] Comment on above: Order Comment: Speci men Type: VENOUS BLOOD SPECIMEN Performed By: #### 2 4344-4 ####[facility]ATORYCLIA [id number] [address] CALCIUM IONIZED, PH CORRECTED 1.21 mmol/L Normal 1.08-1.30 [facility] Comment on above: Order Comment: Speci men Type: VENOUS BLOOD SPECIMEN Performed By: #### 2 4344-4 ####[facility]ATORYCLIA [id number] [address] Calcium.ionized (BldV) [Mass/Vol] 1.19 mmol/L Normal 1.08-1.30 [facility] Comment on above: Order Comment: Speci men Type: VENOUS BLOOD SPECIMEN Performed By: #### 2 4344-4 ####[facility]ATORYCLIA [id number] [address] Carboxyhemoglobin (BldV) [Mass fraction] 1.0 % Normal 0.0-2.0 [facility] Comment on above: Order Comment: Speci men Type: VENOUS BLOOD SPECIMEN Result Comment: Carb oxyhemoglobin Reference Range for Smokers: 2.0-8.0% Performed By: #### 2 4344-4 ####[facility]ATORYCLIA [id number] [address] CO2 (BldV) [Partial pressure] 41 mm[Hg] Low 42-55 [facility] Comment on above: Order Comment: Speci men Type: VENOUS BLOOD SPECIMEN Performed By: #### 2 4344-4 ####[facility]ATORYCLIA [id number] [address] CO2 [Moles/Vol] 23.4 mmol/L Low 25-29 [facility] Comment on above: Order Comment: Speci men Type: VENOUS BLOOD SPECIMEN Performed By: #### 2 4344-4 ####[facility]ORYCLIA [id number] [address] CO2 adjusted to patient's actual temperature (BldV) [Partial pressure] 43 mmHg Normal 42-55 [facility] Comment on above: Order Comment: Speci men Type: VENOUS BLOOD SPECIMEN Performed By: #### 2 4344-4 ####[facility]ATORYCLIA [id number] [address] OF [facility] Glucose [Mass/Vol] 101 mg/dL Normal 60-105 [facility] Comment on above: Order Comment: Speci men Type: VENOUS BLOOD SPECIMEN Performed By: #### 2 4344-4 ####[facility]ATORYCLIA [id number] [address] OF [facility] HCO3 (Bld) [Moles/Vol] 26.0 mmol/L Normal 24-28 [facility] Comment on above: Order Comment: Speci men Type: VENOUS BLOOD SPECIMEN Performed By: #### 2 4344-4 ####[facility]ATORYCLIA [id number] [address] Hematocrit (Bld) [Volume fraction] 38.4 % Low 39.0-51.0 [facility] Comment on above: Order Comment: Speci men Type: VENOUS BLOOD SPECIMEN Performed By: #### 2 4344-4 ####[facility]ATORYCLIA [id number] [address] Hemoglobin (Bld) [Mass/Vol] 12.5 g/dL Low 13.0-17.0 [facility] Comment on above: Order Comment: Speci men Type: VENOUS BLOOD SPECIMEN Performed By: #### 2 4344-4 ####[facility]ATORYCLIA [id number] [address] Methemoglobin (Bld) [Mass fraction] % Normal 0.0-1.5 [facility] Comment on above: Order Comment: Speci men Type: VENOUS BLOOD SPECIMEN Performed By: #### 2 4344-4 ####[facility]ATORYCLIA [id number] [address] O2 THERAPY Ventilator Normal [facility] Comment on above: Order Comment: Speci men Type: VENOUS BLOOD SPECIMEN Performed By: #### 2 4344-4 ####[facility]ATORYCLIA [id number] [address] STATES OF [facility] Oxygen (BldV) [Partial pressure] 44 mm[Hg] Normal 35-45 [facility] Comment on above: Order Comment: Speci men Type: VENOUS BLOOD SPECIMEN Performed By: #### 2 4344-4 ####[facility]ATORYCLIA [id number] [place], [place] [address] [place] [address] Oxygen adjusted to patient's actual temperature (BldV) [Partial pressure] 46.8 mmHg High 35-45 [facility] Comment on above: Order Comment: Speci men Type: VENOUS BLOOD SPECIMEN Performed By: #### 2 4344-4 ####[facility] LABORATORYCLIA [id number] [place], [place] [address] [place] [address] Oxygen saturation in Blood 76.5 % Normal 60-85 [facility] Comment on above: Order Comment: Speci men Type: VENOUS BLOOD SPECIMEN Performed By: #### 2 4344-4 ####[facility]ATORYCLIA [id number] [place], [place] [address] [place] [address] Oxyhemoglobin (BldV) [Mass fraction] 75 % Normal 60-85 [facility] Comment on above: Order Comment: Speci men Type: VENOUS BLOOD SPECIMEN Performed By: #### 2 4344-4 ####[facility]ATORYCLIA [id number] [place], [place] [address] [place] [address] [place] pH (BldV) 7.42 [pH] Normal 7.32-7.42 [facility] Comment on above: Order Comment: Speci men Type: VENOUS BLOOD SPECIMEN Performed By: #### 2 4344-4 ####[facility]ORATORYCLIA [id number] [place], [place] [address] [place] [address] [place] pH adjusted to patient's actual temperature (BldV) 7.40 Normal 7.32-7.42 [facility] Comment on above: Order Comment: Speci men Type: VENOUS BLOOD SPECIMEN Performed By: #### 2 4344-4 ####[facility]ATORYCLIA [id number] [place], [place] [address] [place] [address] [place] Potassium [Moles/Vol] 3.7 mmol/L Normal 3.5-5.0 [facility] Comment on above: Order Comment: Speci men Type: VENOUS BLOOD SPECIMEN Performed By: #### 2 4344-4 ####[facility] LABORATORYCLIA [id number] [address] Sodium [Moles/Vol] 141 mmol/L Normal 136-144 [facility] Comment on above: Order Comment: Speci men Type: VENOUS BLOOD SPECIMEN Performed By: #### 2 4344-4 ####[facility]ATORYCLIA [id number] [address] Magnesium SerPl-ncon 06-05 Magnesium [Mass/Vol] 2.3 mg/dL Normal 1.7-2.3 [facility] Comment on above: Order Comment: Speci men Type: BLOOD SPECIMEN Performed By: #### 1 9123-9, 79012-5, 2777-1 ####[facility]ORATORYCLIA [id number] [address] OF [facility] Phosphate SerPl-mCncon 06-05 Phosphate [Mass/Vol] 2.9 mg/dL Normal 2.7-4.8 [facility] Comment on above: Order Comment: Speci men Type: BLOOD SPECIMEN Performed By: #### 1 9123-9, 90091-6, 2777-1 ####[facility]ORATORYCLIA [id number] [address] [place] Vancomycin random [...] clinical situation. Performed By: #### 4 091-5 ####[facility]ORATORYCLIA [id number] [place] [address] [place] (1,3)-K-P-TVPXMIgs 2 (1,3) B-D GLUCAN <31 Normal <60 [facility] Comment on above: Order Comment: Speci men Type: BLOOD SPECIMEN Performed By: #### B DGLUC ####[facility] LABCLIA [id number] [facility] [place] [address] [place] (1,3) B-D GLUCAN, QUAL Negative Normal NEGAT [facility] Comment on above: Order Comment: Speci men Type: BLOOD SPECIMEN Result Comment: Cert ain fungi, such as the genus Cryptococcus which produces very low levels of (1,3)-qupm-H-jcpyqk, may not result in serum (1,3)-syfh-B-ehcneb sufficiently elevated so as to be detected by the assay. Infections with fungi of the order Mucorales such as Absidia, Mucor and Rhizopus which are not known to produce (1,3)-nbtw-V-kynyli, are also observed to yield low serum (1,3)-awjy-U-esfkvf titers.In addition, the yeast phase of Blastomyces dermatitidis produces little (1,3)-sxvr-J-ntaqae and may not be detected by the assay. Performed By: #### B DGLUC ####[facility] LABCLIA [id number] [place] [id number] [place] ALLIED HEALTHon 06-04-2021 ALLIED HEALTH Normal [facility] ALLIED HEALTH Normal [facility] ARTERIAL BLOOD GASESon 06-04 Base excess Calc (Bld) [Moles/Vol] 3 mmol/L High 0-2 [facility] Comment on above: Order Comment: Speci men Type: ARTERIAL BLOOD SPECIMEN Performed By: #### A LLBG ####[facility]ORATORYCLIA [id number] [address] [place] Body temperature 98.06 [degF] Normal [facility] Comment on above: Order Comment: Speci men Type: ARTERIAL BLOOD SPECIMEN Performed By: #### A LLBG ####[facility]ORATORYCLIA [id number] [address] CALCIUM IONIZED, PH CORRECTED 1.19 mmol/L Normal 1.08-1.30 [facility] Comment on above: Order Comment: Speci men Type: ARTERIAL BLOOD SPECIMEN Performed By: #### A LLBG ####[facility]ATORYCLIA [id number] [address] Calcium.ionized (BldV) [Mass/Vol] 1.14 mmol/L Normal 1.08-1.30 [facility] Comment on above: Order Comment: Speci men Type: ARTERIAL BLOOD SPECIMEN Performed By: #### A LLBG ####[facility]ORATORYCLIA [id number] [address] Carboxyhemoglobin (BldA) [Mass fraction] 1.2 % Normal 0.0-2.0 [facility] Comment on above: Order Comment: Speci men Type: ARTERIAL BLOOD SPECIMEN Result Comment: Carb oxyhemoglobin Reference Range for Smokers: 2.0-8.0% Performed By: #### A LLBG ####[facility]ORATORYCLIA [id number] [address] CO2 (Bld) [Partial pressure] 35 mm Hg Low 36-46 [facility] Comment on above: Order Comment: Speci men Type: ARTERIAL BLOOD SPECIMEN Performed By: #### A LLBG ####[facility]ORATORYCLIA [id number] [address] OF [place] CO2 [Moles/Vol] 23.2 mmol/L Normal 22-28 [facility] Comment on above: Order Comment: Speci men Type: ARTERIAL BLOOD SPECIMEN Performed By: #### A LLBG ####[facility]ORATORYCLIA [id number] [address] CO2 adjusted to patient's actual temperature (Bld) [Partial pressure] 34 mmHg Low 36-46 [facility] Comment on above: Order Comment: Speci men Type: ARTERIAL BLOOD SPECIMEN Performed By: #### A LLBG ####[facility]ORATORYCLIA [id number] [address] OF [facility] Glucose [Mass/Vol] 115 mg/dL High 60-105 [facility] Comment on above: Order Comment: Speci men Type: ARTERIAL BLOOD SPECIMEN Performed By: #### A LLBG ####[facility]ORATORYCLIA [id number] [address] OF [place] HCO3 (Bld) [Moles/Vol] 26 mmol/L Normal 22-26 [facility] Comment on above: Order Comment: Speci men Type: ARTERIAL BLOOD SPECIMEN Performed By: #### A LLBG ####[facility]ORATORYCLIA [id number] [address] OF [facility] Hematocrit (Bld) [Volume fraction] 35.3 % Low 39.0-51.0 [facility] Comment on above: Order Comment: Speci men Type: ARTERIAL BLOOD SPECIMEN Performed By: #### A LLBG ####[facility]ATORYCLIA [id number] [address] OF [facility] Hemoglobin (Bld) [Mass/Vol] 11.5 g/dL Low 13.0-17.0 [facility] Comment on above: Order Comment: Speci men Type: ARTERIAL BLOOD SPECIMEN Performed By: #### A LLBG ####[facility]ATORYCLIA [id number] [address] OF [facility] Methemoglobin (Bld) [Mass fraction] % Normal 0.0-1.5 [facility] Comment on above: Order Comment: Speci men Type: ARTERIAL BLOOD SPECIMEN Performed By: #### A LLBG ####[facility]ORATORYCLIA [id number] [address] O2 THERAPY Ventilator Normal [facility] Comment on above: Order Comment: Speci men Type: ARTERIAL BLOOD SPECIMEN Performed By: #### A LLBG ####[facility]ORATORYCLIA [id number] [address] OF [place] Oxygen (Bld) [Partial pressure] 66 mm Hg Low 85-95 [facility] Comment on above: Order Comment: Speci men Type: ARTERIAL BLOOD SPECIMEN Performed By: #### A LLBG ####[facility] LABORATORYCLIA [id number] [address] Oxygen adjusted to patient's actual temperature (Bld) [Partial pressure] 64.3 mmHg Low 85-95 [facility] Comment on above: Order Comment: Speci men Type: ARTERIAL BLOOD SPECIMEN Performed By: #### A LLBG ####[facility]ORATORYCLIA [id number] [address] OXYGEN SATURATION, ARTERIAL 95 % Normal 95-98 [facility] Comment on above: Order Comment: Speci men Type: ARTERIAL BLOOD SPECIMEN Performed By: #### A LLBG ####[facility]ORYCLIA [id number] [address] Oxyhemoglobin (BldA) [Mass fraction] 93 % Low 95-98 [facility] Comment on above: Order Comment: Speci men Type: ARTERIAL BLOOD SPECIMEN Performed By: #### A LLBG ####[facility]ORATORYCLIA [id number] [address] STATES OF [facility] pH (Bld) 7.49 [pH] High 7.35-7.45 [facility] Comment on above: Order Comment: Speci men Type: ARTERIAL BLOOD SPECIMEN Performed By: #### A LLBG ####[facility]ORATORYCLIA [id number] [address] STATES [facility] pH adjusted to patient's actual temperature (Bld) 7.49 High 7.35-7.45 [facility] Comment on above: Order Comment: Speci men Type: ARTERIAL BLOOD SPECIMEN Performed By: #### A LLBG ####[facility]ORATORYCLIA [id number] [address] Potassium [Moles/Vol] 2.8 mmol/L Low 3.5-5.0 [facility] Comment on above: Order Comment: Speci men Type: ARTERIAL BLOOD SPECIMEN Performed By: #### A LLBG ####[facility]ATORYCLIA [id number] [address] Bas Metab 2000 Pnl SerPlon 0 06-04-2021 Sodium [Moles/Vol] 143 mmol/L Normal 136-144 [facility] Comment on above: Order Comment: Speci men Type: BLOOD SPECIMEN Performed By: #### 2 777-1, , ####[facility]ATORYCLIA [id number] [address] Order Comment: Speci men Type: ARTERIAL BLOOD SPECIMEN Performed By: #### A LLBG ####[facility]ORYCLIA [id number] [address] Basic metabolic 2000 panelon 06-04-2021 Anion gap [Moles/Vol] 11 mmol/L Normal 9-18 [facility] Comment on above: Order Comment: Speci men Type: BLOOD SPECIMEN Performed By: #### 2 777-1, , ####[facility]ATORYCLIA [id number] [address] Calcium [Mass/Vol] 8.5 mg/dL Normal 8.5-10.2 [facility] Comment on above: Order Comment: Speci men Type: BLOOD SPECIMEN Performed By: #### 2 777-1, , ####[facility]ATORYCLIA [id number] [address] OF [facility] Chloride [Moles/Vol] 107 mmol/L High 97-105 [facility] Comment on above: Order Comment: Speci men Type: BLOOD SPECIMEN Performed By: #### 2 777-1, , ####[facility]ATORYCLIA [id number] [address] OF [facility] CO2 [Moles/Vol] 25 mmol/L Normal 22-30 [facility] Comment on above: Order Comment: Speci men Type: BLOOD SPECIMEN Performed By: #### 2 777-1, , ####[facility]ORATORYCLIA [id number] [place] [address] [place] Creatinine [Mass/Vol] 0.77 mg/dL Normal 0.73-1.22 [facility] Comment on above: Order Comment: Speci men Type: BLOOD SPECIMEN Performed By: #### 2 777-1, , ####[facility]ORATORYCLIA [id number] [place] [id number] [place] GFR/1.73 sq M.predicted MDRD (S/P/Bld) [Vol rate/Area] mL/min/{1.73_m2} Normal [facility] Comment on above: [...] GFR. Performed By: #### 2 777-1, , ####[facility]ATORYCLIA [id number] [place] [id number] [place] Glucose [Mass/Vol] 107 mg/dL High 74-99 [facility] Comment on above: Order Comment: Speci men Type: BLOOD SPECIMEN Result Comment: The [place] Diabetes Association (ADA) provides guidance for cutoff [...] Standards of Medical Care in Diabetes 2016, [employer]. Diabetes Care. 2016.39(Suppl 1). Performed By: #### 2 777-1, , 46111-9 ####[facility]ATORYCLIA [id number] [address] Potassium [Moles/Vol] 3.1 mmol/L Low 3.7-5.1 [facility] Comment on above: Order Comment: Speci men Type: BLOOD SPECIMEN Performed By: #### 2 777-1, , ####[facility]ATORYCLIA [id number] [address] Urea nitrogen [Mass/Vol] 19 mg/dL Normal 9-24 [facility] Comment on above: Order Comment: Speci men Type: BLOOD SPECIMEN Performed By: #### 2 777-1, , ####[facility]ATORYCLIA [id number] [address] CBC panel Auto (Bld)on 06-04 Erythrocyte distribution width (RBC) [Ratio] 15.8 % High 11.5-15.0 [facility] Comment on above: Order Comment: Speci men Type: BLOOD SPECIMEN Performed By: #### 5 8410-2 ####[facility]ATORYCLIA [id number] [address] Hematocrit (Bld) [Volume fraction] 36.9 % Low 39.0-51.0 [facility] Comment on above: Order Comment: Speci men Type: BLOOD SPECIMEN Performed By: #### 5 8410-2 ####[facility]ATORYCLIA [id number] [address] Hemoglobin (Bld) [Mass/Vol] 11.2 g/dL Low 13.0-17.0 [facility] Comment on above: Order Comment: Speci men Type: BLOOD SPECIMEN Performed By: #### 5 8410-2 ####[facility]ATORYCLIA [id number] [address] MCH (RBC) [Entitic mass] 27.3 pg Normal 26.0-34.0 [facility] Comment on above: Order Comment: Speci men Type: BLOOD SPECIMEN Performed By: #### 5 8410-2 ####[facility]ATORYCLIA [id number] [address] MCHC (RBC) [Mass/Vol] 30.4 g/dL Low 30.5-36.0 [facility] Comment on above: Order Comment: Speci men Type: BLOOD SPECIMEN Performed By: #### 5 8410-2 ####[facility]ATORYCLIA [id number] [address] MCV (RBC) [Entitic vol] 89.8 fL Normal 80.0-100.0 [facility] Comment on above: Order Comment: Speci men Type: BLOOD SPECIMEN Performed By: #### 5 8410-2 ####[facility]ATORYCLIA [id number] [address] Nucleated RBC (Bld) [#/Vol] 10*3/uL Normal <0.01 [facility] Comment on above: Order Comment: Speci men Type: BLOOD SPECIMEN Performed By: #### 5 8410-2 ####[facility]ATORYCLIA [id number] [address] Platelet mean volume (Bld) [Entitic vol] 10.7 fL Normal 9.0-12.7 [facility] Comment on above: Order Comment: Speci men Type: BLOOD SPECIMEN Performed By: #### 5 8410-2 ####[facility]ATORYCLIA [id number] [address] Platelets (Bld) [#/Vol] 174 10*3/uL Normal 150-400 [facility] Comment on above: Order Comment: Speci men Type: BLOOD SPECIMEN Performed By: #### 5 8410-2 ####[facility]ATORYCLIA [id number] [address] OF [facility] RBC (Bld) [#/Vol] 4.11 10*6/uL Low 4.20-6.00 [facility] Comment on above: Order Comment: Speci men Type: BLOOD SPECIMEN Performed By: #### 5 8410-2 ####[facility]ATORYCLIA [id number] [address] WBC (Bld) [#/Vol] 8.29 10*3/uL Normal 3.70-11.00 [facility] Comment on above: Order Comment: Speci men Type: BLOOD SPECIMEN Performed By: #### 5 8410-2 ####[facility]ATORYCLIA [id number] [address] CONSULT PROGon 06-04-2021 CONSULT PROG Normal [facility] CT BRAIN WO IVCONon 06-04-19 CT BRAIN WO IVCON Normal [facility] CT CHEST W IVCON PEon 2021 CT CHEST W IVCON PE Normal [facility] Magnesium SerPl-mCncon 06-04 Magnesium [Mass/Vol] 2.2 mg/dL Normal 1.7-2.3 [facility] Comment on above: Order Comment: Speci men Type: BLOOD SPECIMEN Performed By: #### 2 777-1, 99337-6, 44401-0 ####[facility]ATORYCLIA [id number] [address] NT-proBNP SerPl-mCncon 06-04 Natriuretic peptide.B prohormone N-Terminal [Mass/Vol] 229 pg/mL High <125 [facility] Comment on above: Order Comment: Speci men Type: BLOOD SPECIMEN Performed By: #### 3 3762-6, 4091-5 ####[facility]ATORYCLIA [id number] [address] Phosphate SerPl-mCncon 06-04 Phosphate [Mass/Vol] 2.0 mg/dL Low 2.7-4.8 [facility] Comment on above: Order Comment: Speci men Type: BLOOD SPECIMEN Performed By: #### 2 777-1, 84470-9, 19977-1 ####[facility]ATORYCLIA [id number] [address] OF [facility] Vancomycin random [Mass/Vol] on 06-04-2021 Vancomycin [Mass/Vol] 35.2 ug/mL High 10.0-20.0 [facility] Comment on above: Order Comment: Speci men Type: BLOOD SPECIMEN Result Comment: Refe rence ranges and high/low indicator flags are provided as general guidelines only. The treating physician must determine appropriate target levels/dosing based on the specific clinical situation. Performed By: #### 3 3762-6, 4091-5 ####[facility]ATORYCLIA [id number] [address] OF [facility] XR ABDOMEN 1V SUPINEon 06-04 XR ABDOMEN 1V SUPINE Normal [facility] ALLIED HEALTHon 06-03-2021 ALLIED HEALTH Normal [facility] ARTERIAL BLOOD GASESon 06-03 Base excess Calc (Bld) [Moles/Vol] 5 mmol/L High 0-2 [facility] Comment on above: Order Comment: Speci men Type: ARTERIAL BLOOD SPECIMEN Performed By: #### A LLBG ####[facility]ATORYCLIA [id number] [address] Body temperature 99.5 [degF] Normal [facility] Comment on above: Order Comment: Speci men Type: ARTERIAL BLOOD SPECIMEN Performed By: #### A LLBG ####[facility]ATORYCLIA [id number] [address] CALCIUM IONIZED, PH CORRECTED 1.18 mmol/L Normal 1.08-1.30 [facility] Comment on above: Order Comment: Speci men Type: ARTERIAL BLOOD SPECIMEN Performed By: #### A LLBG ####[facility]ATORYCLIA [id number] [address] Calcium.ionized (BldV) [Mass/Vol] 1.16 mmol/L Normal 1.08-1.30 [facility] Comment on above: Order Comment: Speci men Type: ARTERIAL BLOOD SPECIMEN Performed By: #### A LLBG ####[facility]ATORYCLIA [id number] [address] Carboxyhemoglobin (BldA) [Mass fraction] 1.2 % Normal 0.0-2.0 [facility] Comment on above: Order Comment: Speci men Type: ARTERIAL BLOOD SPECIMEN Result Comment: Carb oxyhemoglobin Reference Range for Smokers: 2.0-8.0% Performed By: #### A LLBG ####[facility]ATORYCLIA [id number] [address] CO2 (Bld) [Partial pressure] 45 mm Hg Normal 36-46 [facility] Comment on above: Order Comment: Speci men Type: ARTERIAL BLOOD SPECIMEN Performed By: #### A LLBG ####[facility]ATORYCLIA [id number] [address] CO2 [Moles/Vol] 26.9 mmol/L Normal 22-28 [facility] Comment on above: Order Comment: Speci men Type: ARTERIAL BLOOD SPECIMEN Performed By: #### A LLBG ####[facility]ATORYCLIA [id number] [address] CO2 adjusted to patient's actual temperature (Bld) [Partial pressure] 47 mmHg High 36-46 [facility] [facility] Comment on above: Order Comment: Speci men Type: ARTERIAL BLOOD SPECIMEN Performed By: #### A LLBG ####[facility]ATORYCLIA [id number] [address] Glucose [Mass/Vol] 141 mg/dL High 60-105 [facility] Comment on above: Order Comment: Speci men Type: ARTERIAL BLOOD SPECIMEN Performed By: #### A LLBG ####[facility]ORYCLIA [id number] [address] OF [facility] HCO3 (Bld) [Moles/Vol] 30 mmol/L High 22-26 [facility] Comment on above: Order Comment: Speci men Type: ARTERIAL BLOOD SPECIMEN Performed By: #### A LLBG ####[facility]ORYCLIA [id number] [address] [place] Hematocrit (Bld) [Volume fraction] 35.8 % Low 39.0-51.0 [facility] Comment on above: Order Comment: Speci men Type: ARTERIAL BLOOD SPECIMEN Performed By: #### A LLBG ####[facility]ATORYCLIA [id number] [address] Hemoglobin (Bld) [Mass/Vol] 11.6 g/dL Low 13.0-17.0 [facility] Comment on above: Order Comment: Speci men Type: ARTERIAL BLOOD SPECIMEN Performed By: #### A LLBG ####[facility]ORATORYCLIA [id number] [address] Methemoglobin (Bld) [Mass fraction] % Normal 0.0-1.5 [facility] Comment on above: Order Comment: Speci men Type: ARTERIAL BLOOD SPECIMEN Performed By: #### A LLBG ####[facility]ORYCLIA [id number] [address] O2 THERAPY Ventilator Normal [facility] Comment on above: Order Comment: Speci men Type: ARTERIAL BLOOD SPECIMEN Performed By: #### A LLBG ####[facility]ORYCLIA [id number] [address] Oxygen (Bld) [Partial pressure] 69 mm Hg Low 85-95 [facility] Comment on above: Order Comment: Speci men Type: ARTERIAL BLOOD SPECIMEN Performed By: #### A LLBG ####[facility]ORYCLIA [id number] [address] Oxygen adjusted to patient's actual temperature (Bld) [Partial pressure] 70.8 mmHg Low 85-95 [facility] Comment on above: Order Comment: Speci men Type: ARTERIAL BLOOD SPECIMEN Performed By: #### A LLBG ####[facility]ORYCLIA [id number] [address] OXYGEN SATURATION, ARTERIAL 94 % Low 95-98 [facility] Comment on above: Order Comment: Speci men Type: ARTERIAL BLOOD SPECIMEN Performed By: #### A LLBG ####[facility]ORYCLIA [id number] [address] Oxyhemoglobin (BldA) [Mass fraction] 93 % Low 95-98 [facility] Comment on above: Order Comment: Speci men Type: ARTERIAL BLOOD SPECIMEN Performed By: #### A LLBG ####[facility]ORYCLIA [id number] [address] [place] pH (Bld) 7.43 [pH] Normal 7.35-7.45 [facility] Comment on above: Order Comment: Speci men Type: ARTERIAL BLOOD SPECIMEN Performed By: #### A LLBG ####[facility]ORYCLIA [id number] [address] pH adjusted to patient's actual temperature (Bld) 7.43 Normal 7.35-7.45 [facility] Comment on above: Order Comment: Speci men Type: ARTERIAL BLOOD SPECIMEN Performed By: #### A LLBG ####[facility]ORYCLIA [id number] [address] [place] Potassium [Moles/Vol] 3.1 mmol/L Low 3.5-5.0 [facility] Comment on above: Order Comment: Speci men Type: ARTERIAL BLOOD SPECIMEN Performed By: #### A LLBG ####[facility]ORYCLIA [id number] [address] [place] Sodium [Moles/Vol] 145 mmol/L High 136-144 [facility] Comment on above: Order Comment: Speci men Type: ARTERIAL BLOOD SPECIMEN Performed By: #### A LLBG ####[facility]ORATORYCLIA [id number] [place] [address] [place] ASPERGILLUS GALACTOMANNAN SE RUMon 06-03-2021 Galactomannan Ag IA Ql Negative Normal NEGAT [facility] Comment on above: Order [...] Performed By: #### A SGALS ####[facility] LABCLIA [id number] [place] [address] [place] Galactomannan Ag IA Qn <0.50 Normal [facility] Comment on above: Order Comment: Speci men Type: BLOOD SPECIMEN Result Comment: Inde x Values are Interpreted as Follows:Negative specimens <0.50Positive specimens >=0.50 Performed By: #### A SGALS ####[facility] LABCLIA [id number] [facility] [place] [address] [place] Basic metabolic 2000 panelon 06-03-2021 Anion gap [Moles/Vol] 8 mmol/L Low 9-18 [facility] Comment on above: Order Comment: Speci men Type: BLOOD SPECIMEN Performed By: #### 1 9123-9, 2777-, 99513-6 ####[facility]ORATORYCLIA [id number] [place] [address] [place] Calcium [Mass/Vol] 8.0 mg/dL Low 8.5-10.2 [facility] Comment on above: Order Comment: Speci men Type: BLOOD SPECIMEN Performed By: #### 1 9123-9, 2777-1, 08584-6 ####[facility]ORATORYCLIA [id number] [place] [address] [place] Chloride [Moles/Vol] 110 mmol/L High 97-105 [facility] Comment on above: Order Comment: Speci men Type: BLOOD SPECIMEN Performed By: #### 1 9123-9, 2776-05, ####[facility]ORATORYCLIA [id number] [address] [place] CO2 [Moles/Vol] 28 mmol/L Normal 22-30 [facility] Comment on above: Order Comment: Speci men Type: BLOOD SPECIMEN Performed By: #### 1 9123-9, 2776-05, ####[facility]ORATORYCLIA [id number] [address] STATES OF [facility] Creatinine [Mass/Vol] 0.75 mg/dL Normal 0.73-1.22 [facility] Comment on above: Order Comment: Speci men Type: BLOOD SPECIMEN Performed By: #### 1 9123-9, 2776-05, ####[facility]ORATORYCLIA [id number] [address] [place] GFR/1.73 sq M.predicted MDRD (S/P/Bld) [Vol rate/Area] mL/min/{1.73_m2} Normal [facility] Comment on above: [...] GFR. Performed By: #### 1 9123-9, 27711-04, 98008-9 ####[facility]ORATORYCLIA [id number] [address] [place] Glucose [Mass/Vol] 141 mg/dL High 74-99 [facility] Comment on above: Order Comment: Speci men Type: BLOOD SPECIMEN Result Comment: The [place] Diabetes Association (ADA) provides guidance for cutoff [...] Standards of Medical Care in Diabetes 2016, [employer] Association. Diabetes Care. 2016.39(Suppl 1). Performed By: #### 1 9123-9, 2777-, 52435-0 ####[facility]ORATORYCLIA [id number] [address] STATES OF [facility] Potassium [Moles/Vol] 3.3 mmol/L Low 3.7-5.1 [facility] Comment on above: Order Comment: Speci men Type: BLOOD SPECIMEN Performed By: #### 1 9123-9, 2777-, 65317-5 ####[facility]ORATORYCLIA [id number] [address] STATES [facility] Sodium [Moles/Vol] 146 mmol/L High 136-144 [facility] Comment on above: Order Comment: Speci men Type: BLOOD SPECIMEN Performed By: #### 1 9123-9, 2777-1, 12468-1 ####[facility]ORATORYCLIA [id number] [address] [place] Urea nitrogen [Mass/Vol] 10 mg/dL Normal 9-24 [facility] Comment on above: Order Comment: Speci men Type: BLOOD SPECIMEN Performed By: #### 1 9123-9, 2777-, 91990-2 ####[facility]ORATORYCLIA [id number] [address] OF [facility] CASE MANAGEMon 06-03-2021 CASE MANAGEM Normal [facility] CBC panel Auto (Bld)on 06-03 Erythrocyte distribution width (RBC) [Ratio] 15.6 % High 11.5-15.0 [facility] Comment on above: Order Comment: Speci men Type: BLOOD SPECIMEN Performed By: #### 5 8410-2 ####[facility]ATORYCLIA [id number] [address] Hematocrit (Bld) [Volume fraction] 36.9 % Low 39.0-51.0 [facility] Comment on above: Order Comment: Speci men Type: BLOOD SPECIMEN Performed By: #### 5 8410-2 ####[facility]ORYCLIA [id number] [address] Hemoglobin (Bld) [Mass/Vol] 11.1 g/dL Low 13.0-17.0 [facility] Comment on above: Order Comment: Speci men Type: BLOOD SPECIMEN Performed By: #### 5 8410-2 ####[facility]ORATORYCLIA [id number] [address] MCH (RBC) [Entitic mass] 27.0 pg Normal 26.0-34.0 [facility] Comment on above: Order Comment: Speci men Type: BLOOD SPECIMEN Performed By: #### 5 8410-2 ####[facility]ATORYCLIA [id number] [address] MCHC (RBC) [Mass/Vol] 30.1 g/dL Low 30.5-36.0 [facility] Comment on above: Order Comment: Speci men Type: BLOOD SPECIMEN Performed By: #### 5 8410-2 ####[facility]ATORYCLIA [id number] [address] MCV (RBC) [Entitic vol] 89.8 fL Normal 80.0-100.0 [facility] Comment on above: Order Comment: Speci men Type: BLOOD SPECIMEN Performed By: #### 5 8410-2 ####[facility]ATORYCLIA [id number] [address] Nucleated RBC (Bld) [#/Vol] 10*3/uL Normal <0.01 [facility] Comment on above: Order Comment: Speci men Type: BLOOD SPECIMEN Performed By: #### 5 8410-2 ####[facility]ORATORYCLIA [id number] [address] Platelet mean volume (Bld) [Entitic vol] 10.5 fL Normal 9.0-12.7 [facility] Comment on above: Order Comment: Speci men Type: BLOOD SPECIMEN Performed By: #### 5 8410-2 ####[facility]ATORYCLIA [id number] [address] Platelets (Bld) [#/Vol] 196 10*3/uL Normal 150-400 [facility] Comment on above: Order Comment: Speci men Type: BLOOD SPECIMEN Performed By: #### 5 8410-2 ####[facility]ORYCLIA [id number] [address] RBC (Bld) [#/Vol] 4.11 10*6/uL Low 4.20-6.00 [facility] Comment on above: Order Comment: Speci men Type: BLOOD SPECIMEN Performed By: #### 5 8410-2 ####[facility]ATORYCLIA [id number] [address] WBC (Bld) [#/Vol] 8.18 10*3/uL Normal 3.70-11.00 [facility] Comment on above: Order Comment: Speci men Type: BLOOD SPECIMEN Performed By: #### 5 8410-2 ####[facility]ATORYCLIA [id number] [address] CONSULTon 06-03-2021 CONSULT Normal [facility] CONSULT PROGon 06-03-2021 CONSULT PROG Normal [facility] Gas and Carbon monoxide pane l (BldV)on 06-03-2021 Base excess Calc (BldV) [Moles/Vol] 1.4 mmol/L Normal 0-2 [facility] Comment on above: Order Comment: Speci men Type: VENOUS BLOOD SPECIMEN Performed By: #### 2 4344-4 ####[facility]ATORYCLIA [id number] [address] Body temperature 98.42 [degF] Normal [facility] Comment on above: Order Comment: Speci men Type: VENOUS BLOOD SPECIMEN Performed By: #### 2 4344-4 ####[facility]ATORYCLIA [id number] [address] OF [facility] CALCIUM IONIZED, PH CORRECTED 1.09 mmol/L Normal 1.08-1.30 [facility] Comment on above: Order Comment: Speci men Type: VENOUS BLOOD SPECIMEN Performed By: #### 2 4344-4 ####[facility]ORYCLIA [id number] [address] OF [facility] Calcium.ionized (BldV) [Mass/Vol] 1.12 mmol/L Normal 1.08-1.30 [facility] Comment on above: Order Comment: Speci men Type: VENOUS BLOOD SPECIMEN Performed By: #### 2 4344-4 ####[facility]ORYCLIA [id number] [address] OF [facility] Carboxyhemoglobin (BldV) [Mass fraction] 1.7 % Normal 0.0-2.0 [facility] Comment on above: Order Comment: Speci men Type: VENOUS BLOOD SPECIMEN Result Comment: Carb oxyhemoglobin Reference Range for Smokers: 2.0-8.0% Performed By: #### 2 4344-4 ####[facility]ORYCLIA [id number] [address] CO2 (BldV) [Partial pressure] 50 mm[Hg] Normal 42-55 [facility] Comment on above: Order Comment: Speci men Type: VENOUS BLOOD SPECIMEN Performed By: #### 2 4344-4 ####[facility]ORYCLIA [id number] [address] CO2 [Moles/Vol] 24.9 mmol/L Low 25-29 [facility] Comment on above: Order Comment: Speci men Type: VENOUS BLOOD SPECIMEN Performed By: #### 2 4344-4 ####[facility]ORYCLIA [id number] [address] CO2 adjusted to patient's actual temperature (BldV) [Partial pressure] 50 mmHg Normal 42-55 [facility] Comment on above: Order Comment: Speci men Type: VENOUS BLOOD SPECIMEN Performed By: #### 2 4344-4 ####[facility]ORYCLIA [id number] [address] FIO2 30 % Normal [facility] Comment on above: Order Comment: Speci men Type: VENOUS BLOOD SPECIMEN Performed By: #### 2 4344-4 ####[facility]ORYCLIA [id number] [address] Glucose [Mass/Vol] 191 mg/dL High 60-105 [facility] Comment on above: Order Comment: Speci men Type: VENOUS BLOOD SPECIMEN Performed By: #### 2 4344-4 ####[facility]ORYCLIA [id number] [address] HCO3 (Bld) [Moles/Vol] 27.1 mmol/L Normal 24-28 [facility] Comment on above: Order Comment: Speci men Type: VENOUS BLOOD SPECIMEN Performed By: #### 2 4344-4 ####[facility]ORYCLIA [id number] [address] Hematocrit (Bld) [Volume fraction] 36.2 % Low 39.0-51.0 [facility] Comment on above: Order Comment: Speci men Type: VENOUS BLOOD SPECIMEN Performed By: #### 2 4344-4 ####[facility]ORYCLIA [id number] [address] Hemoglobin (Bld) [Mass/Vol] 11.8 g/dL Low 13.0-17.0 [facility] Comment on above: Order Comment: Speci men Type: VENOUS BLOOD SPECIMEN Performed By: #### 2 4344-4 ####[facility]ATORYCLIA [id number] [address] INHALED TIDAL VOLUME (ML) 530 Normal [facility] Comment on above: Order Comment: Speci men Type: VENOUS BLOOD SPECIMEN Performed By: #### 2 4344-4 ####[facility]ORYCLIA [id number] [address] Methemoglobin (Bld) [Mass fraction] % Normal 0.0-1.5 [facility] Comment on above: Order Comment: Speci men Type: VENOUS BLOOD SPECIMEN Performed By: #### 2 4344-4 ####[facility]ATORYCLIA [id number] [address] [place] O2 THERAPY Ventilator Normal [facility] Comment on above: Order Comment: Speci men Type: VENOUS BLOOD SPECIMEN Performed By: #### 2 4344-4 ####[facility]ATORYCLIA [id number] [place], [place] [address] [place] [address] [place] Oxygen (BldV) [Partial pressure] 69 mm[Hg] High 35-45 [facility] Comment on above: Order Comment: Speci men Type: VENOUS BLOOD SPECIMEN Performed By: #### 2 4344-4 ####[facility]ORYCLIA [id number] [address] [place] Oxygen adjusted to patient's actual temperature (BldV) [Partial pressure] 68.8 mmHg High 35-45 [facility] Comment on above: Order Comment: Speci men Type: VENOUS BLOOD SPECIMEN Performed By: #### 2 4344-4 ####[facility]ORYCLIA [id number] [address] Oxygen saturation in Blood 92.4 % High 60-85 [facility] Comment on above: Order Comment: Speci men Type: VENOUS BLOOD SPECIMEN Performed By: #### 2 4344-4 ####[facility]ORYCLIA [id number] [address] Oxyhemoglobin (BldV) [Mass fraction] 90 % High 60-85 [facility] Comment on above: Order Comment: Speci men Type: VENOUS BLOOD SPECIMEN Performed By: #### 2 4344-4 ####[facility]ORYCLIA [id number] [address] PEEP/CPAP 8 cmH2O Normal [facility] Comment on above: Order Comment: Speci men Type: VENOUS BLOOD SPECIMEN Performed By: #### 2 4344-4 ####[facility]ORYCLIA [id number] [address] pH (BldV) 7.35 [pH] Normal 7.32-7.42 [facility] Comment on above: Order Comment: Speci men Type: VENOUS BLOOD SPECIMEN Performed By: #### 2 4344-4 ####[facility]ATORYCLIA [id number] [address] pH adjusted to patient's actual temperature (BldV) 7.35 Normal 7.32-7.42 [facility] Comment on above: Order Comment: Speci men Type: VENOUS BLOOD SPECIMEN Performed By: #### 2 4344-4 ####[facility]ORYCLIA [id number] [address] Potassium [Moles/Vol] 3.6 mmol/L Normal 3.5-5.0 [facility] Comment on above: Order Comment: Speci men Type: VENOUS BLOOD SPECIMEN Performed By: #### 2 4344-4 ####[facility]ORYCLIA [id number] [address] SET VENTILATOR RESPIRATORY RATE (BPM) 18 BPM Normal [facility] Comment on above: Order Comment: Speci men Type: VENOUS BLOOD SPECIMEN Performed By: #### 2 4344-4 ####[facility]ORYCLIA [id number] [address] Sodium [Moles/Vol] 141 mmol/L Normal 136-144 [facility] Comment on above: Order Comment: Speci men Type: VENOUS BLOOD SPECIMEN Performed By: #### 2 4344-4 ####[facility]ORATORYCLIA [id number] [place] [address] [place] HIV 1+2 Ab IA Qlon 2 HIV 1 and 2 Ab IA.rapid Nom Normal [facility] Comment on above: Order Comment: Speci men Type: BLOOD SPECIMEN Result Comment: Test not indicated. Performed By: #### 3 1201-7, TOXMG ####[facility]ATORYCLIA [id number] [address] HIV 1+2 Ab+HIV1 p24 Ag IA Ql Non-Reactive Normal Nonreactive [facility] Comment on above: [...] diagnoses. Performed By: #### 3 1201-7, TOXMG ####[facility]ATORYCLIA [id number] [address] [place] HIVINT Normal [facility] Comment on above: Order Comment: Speci men Type: BLOOD SPECIMEN Result Comment: No e vidence of HIV-1 or HIV-2 infection. Should recent infection be suspected, repeat testing may be considered 2-3 weeks after this draw. Performed By: #### 3 1201-7, TOXMG ####[facility]ATORYCLIA [id number] [address] [place] Magnesium SerPl-mCncon 06-03 Magnesium [Mass/Vol] 1.9 mg/dL Normal 1.7-2.3 [facility] Comment on above: Order Comment: Speci men Type: BLOOD SPECIMEN Performed By: #### 1 9123-9, 2777-1, 48057-9 ####[facility]ATORYCLIA [id number] [place] [address] [place] NUTRITIONon 06-03-2021 NUTRITION Normal [facility] Phosphate SerPl-mCncon 06-03 Phosphate [Mass/Vol] 1.9 mg/dL Low 2.7-4.8 [facility] Comment on above: Order Comment: Speci men Type: BLOOD SPECIMEN Performed By: #### 1 9123-9, 2777-1, 90183-9 ####[facility]ORATORYCLIA [id number] [address] [place] TOXOPLASMOSIS IGM AND IGG AB on 06-03-2021 TOXO IGG QUAL Negative Normal Negative [facility] Comment on above: Order Comment: Speci men Type: BLOOD SPECIMEN Result Comment: No s erological evidence of past exposure to Toxoplasma gondii. Cannot exclude recent infection if the specimen collected within 3-4 weeks after infection.Negative <6.4 IU/mLEquivocal 6.4-9.9 IU/mLPositive >=10.0 IU/mL Performed By: #### 3 1201-7, TOXMG ####[facility]ATORYCLIA [id number] [address] TOXO IGM QUAL Negative Normal Negative [facility] Comment on above: Order Comment: Speci men Type: BLOOD SPECIMEN Result Comment: No s erological evidence of recent exposure to Toxoplasma gondii.Negative <0.9 IndexEquivocal 0.9-0.99 IndexPositive >=1.0 Index Performed By: #### 3 1201-7, TOXMG ####[facility]ATORYCLIA [id number] [place] [address] [place] US DVT LOWER BILon US DVT LOWER RAINER Normal [facility] XR CHEST 1V FRONTALon 2021 XR CHEST 1V FRONTAL Normal [facility] ARTERIAL BLOOD GASESon 06-02 Base excess Calc (Bld) [Moles/Vol] 2 mmol/L Normal 0-2 [facility] Comment on above: Order Comment: Speci men Type: ARTERIAL BLOOD SPECIMEN Performed By: #### A LLBG ####[facility]ATORYCLIA [id number] [address] Body temperature 99.32 [degF] Normal [facility] Comment on above: Order Comment: Speci men Type: ARTERIAL BLOOD SPECIMEN Performed By: #### A LLBG ####[facility]ORYCLIA [id number] [address] CALCIUM IONIZED, PH CORRECTED 1.15 mmol/L Normal 1.08-1.30 [facility] Comment on above: Order Comment: Speci men Type: ARTERIAL BLOOD SPECIMEN Performed By: #### A LLBG ####[facility]ORYCLIA [id number] [address] Calcium.ionized (BldV) [Mass/Vol] 1.13 mmol/L Normal 1.08-1.30 [facility] Comment on above: Order Comment: Speci men Type: ARTERIAL BLOOD SPECIMEN Performed By: #### A LLBG ####[facility]ORYCLIA [id number] [address] Carboxyhemoglobin (BldA) [Mass fraction] 1.4 % Normal 0.0-2.0 [facility] Comment on above: Order Comment: Speci men Type: ARTERIAL BLOOD SPECIMEN Result Comment: Carb oxyhemoglobin Reference Range for Smokers: 2.0-8.0% Performed By: #### A LLBG ####[facility]ORYCLIA [id number] [address] [place] CO2 (Bld) [Partial pressure] 39 mm Hg Normal 36-46 [facility] Comment on above: Order Comment: Speci men Type: ARTERIAL BLOOD SPECIMEN Performed By: #### A LLBG ####[facility]ORYCLIA [id number] [address] OF [facility] CO2 [Moles/Vol] 23.4 mmol/L Normal 22-28 [facility] Comment on above: Order Comment: Speci men Type: ARTERIAL BLOOD SPECIMEN Performed By: #### A LLBG ####[facility]ORYCLIA [id number] [address] CO2 adjusted to patient's actual temperature (Bld) [Partial pressure] 40 mmHg Normal 36-46 [facility] Comment on above: Order Comment: Speci men Type: ARTERIAL BLOOD SPECIMEN Performed By: #### A LLBG ####[facility]ORYCLIA [id number] [address] Glucose [Mass/Vol] 156 mg/dL High 60-105 [facility] Comment on above: Order Comment: Speci men Type: ARTERIAL BLOOD SPECIMEN Performed By: #### A LLBG ####[facility]ORYCLIA [id number] [address] HCO3 (Bld) [Moles/Vol] 26 mmol/L Normal 22-26 [facility] Comment on above: Order Comment: Speci men Type: ARTERIAL BLOOD SPECIMEN Performed By: #### A LLBG ####[facility]ORYCLIA [id number] [address] Hematocrit (Bld) [Volume fraction] 33.9 % Low 39.0-51.0 [facility] Comment on above: Order Comment: Speci men Type: ARTERIAL BLOOD SPECIMEN Performed By: #### A LLBG ####[facility]ORYCLIA [id number] [address] Hemoglobin (Bld) [Mass/Vol] 11.0 g/dL Low 13.0-17.0 [facility] Comment on above: Order Comment: Speci men Type: ARTERIAL BLOOD SPECIMEN Performed By: #### A LLBG ####[facility]ORYCLIA [id number] [address] Methemoglobin (Bld) [Mass fraction] % Normal 0.0-1.5 [facility] Comment on above: Order Comment: Speci men Type: ARTERIAL BLOOD SPECIMEN Performed By: #### A LLBG ####[facility]ATORYCLIA [id number] [place], [place] [id number] [place] [address] O2 THERAPY Ventilator Normal [facility] Comment on above: Order Comment: Speci men Type: ARTERIAL BLOOD SPECIMEN Performed By: #### A LLBG ####[facility]ATORYCLIA [id number] [place], [place] [id number] [place] [address] Oxygen (Bld) [Partial pressure] 70 mm Hg Low 85-95 [facility] Comment on above: Order Comment: Speci men Type: ARTERIAL BLOOD SPECIMEN Performed By: #### A LLBG ####[facility]ATORYCLIA [id number] [address] Oxygen adjusted to patient's actual temperature (Bld) [Partial pressure] 72.2 mmHg Low 85-95 [facility] Comment on above: Order Comment: Speci men Type: ARTERIAL BLOOD SPECIMEN Performed By: #### A LLBG ####[facility]ORYCLIA [id number] [address] OXYGEN SATURATION, ARTERIAL 96 % Normal 95-98 [facility] Comment on above: Order Comment: Speci men Type: ARTERIAL BLOOD SPECIMEN Performed By: #### A LLBG ####[facility]ORYCLIA [id number] [address] Oxyhemoglobin (BldA) [Mass fraction] 94 % Low 95-98 [facility] Comment on above: Order Comment: Speci men Type: ARTERIAL BLOOD SPECIMEN Performed By: #### A LLBG ####[facility]ORYCLIA [id number] [address] [place] pH (Bld) 7.43 [pH] Normal 7.35-7.45 [facility] Comment on above: Order Comment: Speci men Type: ARTERIAL BLOOD SPECIMEN Performed By: #### A LLBG ####[facility]ORYCLIA [id number] [address] pH adjusted to patient's actual temperature (Bld) 7.42 Normal 7.35-7.45 [facility] Comment on above: Order Comment: Speci men Type: ARTERIAL BLOOD SPECIMEN Performed By: #### A LLBG ####[facility]ORY[facility]IA [id number] [address] Potassium [Moles/Vol] 2.6 mmol/L Low 3.5-5.0 [facility] Comment on above: Order Comment: Speci men Type: ARTERIAL BLOOD SPECIMEN Performed By: #### A LLBG ####[facility]ORYCLIA [id number] [address] Sodium [Moles/Vol] 142 mmol/L Normal 136-144 [facility] Comment on above: Order Comment: Speci men Type: ARTERIAL BLOOD SPECIMEN Performed By: #### A LLBG ####[facility]ORATORYCLIA [id number] [address] Ammonia Plas-sCncon 06-02-19 22 Ammonia (P) [Moles/Vol] 20 umol/L Normal 16-60 [facility] Comment on above: Order Comment: Speci men Type: BLOOD SPECIMEN Performed By: #### 1 6362-6 ####[facility]ORATORYCLIA [id number] [address] [place] Bacteria CSF Culton 06-02-19 22 Bacteria identified Cx Nom (CSF) CULTURE, CSF: No growth 14 days GRAM STAIN: No organisms seen Rare Polymorphonuclear leukocytes Gram stain performed on cytospun specimen. Normal [facility] Comment on above: Performed By: #### 6 06-4 ####[facility]ORYCLIA [id number] [address] [place] Basic metabolic 2000 panelon 06-02-2021 Anion gap [Moles/Vol] 10 mmol/L Normal 9-18 [facility] Comment on above: Order Comment: Speci men Type: BLOOD SPECIMEN Performed By: #### 2 4321-2, 72061-1, 2777-1 ####[facility]ORYCLIA [id number] [address] STATES OF [facility] Calcium [Mass/Vol] 8.1 mg/dL Low 8.5-10.2 [facility] Comment on above: Order Comment: Speci men Type: BLOOD SPECIMEN Performed By: #### 2 4321-2, , 2776-05 ####[facility]ATORYCLIA [id number] [address] Chloride [Moles/Vol] 108 mmol/L High 97-105 [facility] Comment on above: Order Comment: Speci men Type: BLOOD SPECIMEN Performed By: #### 2 4321-2, , 2776-05 ####[facility]ATORYCLIA [id number] [address] CO2 [Moles/Vol] 24 mmol/L Normal 22-30 [facility] Comment on above: Order Comment: Speci men Type: BLOOD SPECIMEN Performed By: #### 2 4321-2, , 2776-05 ####[facility]ATORYCLIA [id number] [address] STATES OF [facility] Creatinine [Mass/Vol] 0.78 mg/dL Normal 0.73-1.22 [facility] Comment on above: Order Comment: Speci men Type: BLOOD SPECIMEN Performed By: #### 2 4321-2, , 2776-05 ####[facility]ATORYCLIA [id number] [address] [place] GFR/1.73 sq M.predicted MDRD (S/P/Bld) [Vol rate/Area] mL/min/{1.73_m2} Normal [facility] Comment on above: [...] Performed By: #### 2 1-2, , 2776-05 ####[facility]ORATORYCLIA [id number] [place] [address] [place] Glucose [Mass/Vol] 162 mg/dL High 74-99 [facility] Comment on above: Order Comment: Speci men Type: BLOOD SPECIMEN Result Comment: The [place] Diabetes Association (ADA) provides guidance for cutoff [...] Standards of Medical Care in Diabetes 2016, [employer] Diabetes Association. Diabetes Care. 2016.39(Suppl 1). Performed By: #### 2 1-2, , 2776-05 ####[facility]ORATORYCLIA [id number] [place] [address] [place] Potassium [Moles/Vol] 2.7 mmol/L Low 3.7-5.1 [facility] Comment on above: Order Comment: Speci men Type: BLOOD SPECIMEN Performed By: #### 2 1-2, , 2776-05 ####[facility]ATORYCLIA [id number] [address] [place] Sodium [Moles/Vol] 142 mmol/L Normal 136-144 [facility] Comment on above: Order Comment: Speci men Type: BLOOD SPECIMEN Performed By: #### 2 1-2, , 2776-05 ####[facility]ORYCLIA [id number] [address] Urea nitrogen [Mass/Vol] 12 mg/dL Normal 9-24 [facility] Comment on above: Order Comment: Speci men Type: BLOOD SPECIMEN Performed By: #### 2 4321-2, 51484-2, 2777-1 ####[facility]ATORYCLIA [id number] [address] CBC panel Auto (Bld)on 06-02 Erythrocyte distribution width (RBC) [Ratio] 15.0 % Normal 11.5-15.0 [facility] Comment on above: Order Comment: Speci men Type: BLOOD SPECIMEN Performed By: #### 5 8410-2 ####[facility]ATORYCLIA [id number] [address] Hematocrit (Bld) [Volume fraction] 34.3 % Low 39.0-51.0 [facility] Comment on above: Order Comment: Speci men Type: BLOOD SPECIMEN Performed By: #### 5 8410-2 ####[facility]ORYCLIA [id number] [address] Hemoglobin (Bld) [Mass/Vol] 10.3 g/dL Low 13.0-17.0 [facility] Comment on above: Order Comment: Speci men Type: BLOOD SPECIMEN Performed By: #### 5 8410-2 ####[facility]ATORYCLIA [id number] [address] MCH (RBC) [Entitic mass] 27.0 pg Normal 26.0-34.0 [facility] Comment on above: Order Comment: Speci men Type: BLOOD SPECIMEN Performed By: #### 5 8410-2 ####[facility]ATORYCLIA [id number] [address] MCHC (RBC) [Mass/Vol] 30.0 g/dL Low 30.5-36.0 [facility] Comment on above: Order Comment: Speci men Type: BLOOD SPECIMEN Performed By: #### 5 8410-2 ####[facility] LABORATORYCLIA [id number] [address] MCV (RBC) [Entitic vol] 90.0 fL Normal 80.0-100.0 [facility] Comment on above: Order Comment: Speci men Type: BLOOD SPECIMEN Performed By: #### 5 8410-2 ####[facility]ATORYCLIA [id number] [address] Nucleated RBC (Bld) [#/Vol] 10*3/uL Normal <0.01 [facility] Comment on above: Order Comment: Speci men Type: BLOOD SPECIMEN Performed By: #### 5 8410-2 ####[facility]ORYCLIA [id number] [address] Platelet mean volume (Bld) [Entitic vol] 10.2 fL Normal 9.0-12.7 [facility] Comment on above: Order Comment: Speci men Type: BLOOD SPECIMEN Performed By: #### 5 8410-2 ####[facility]ATORYCLIA [id number] [address] Platelets (Bld) [#/Vol] 194 10*3/uL Normal 150-400 [facility] Comment on above: Order Comment: Speci men Type: BLOOD SPECIMEN Performed By: #### 5 8410-2 ####[facility]ORYCLIA [id number] [address] RBC (Bld) [#/Vol] 3.81 10*6/uL Low 4.20-6.00 [facility] Comment on above: Order Comment: Speci men Type: BLOOD SPECIMEN Performed By: #### 5 8410-2 ####[facility]ATORYCLIA [id number] [address] WBC (Bld) [#/Vol] 9.22 10*3/uL Normal 3.70-11.00 [facility] Comment on above: Order Comment: Speci men Type: BLOOD SPECIMEN Performed By: #### 5 8410-2 ####[facility]ORATORYCLIA [id number] [address] OF [facility] CONSULT PROGon 06-02-2021 CONSULT PROG Normal [facility] CSF MANUAL DIFFon 06-02-2021 DIF TTL, CSF 25 cells counted Normal [facility] Comment on above: Order Comment: Speci men Type: CEREBROSPINAL FLUID Performed By: #### 3 4563-7, [id number], [id number] ####[facility]ORYCLIA [id number] [address] [place] LYMPH%, CSF 4 % Low 50-90 [facility] Comment on above: Order Comment: Speci men Type: CEREBROSPINAL FLUID Performed By: #### 3 4563-7, [id number], [id number] ####[facility]ATORYCLIA [id number] [address] [place] MACRO%, CSF 4 % High <1 [facility] Comment on above: Order Comment: Speci men Type: CEREBROSPINAL FLUID Performed By: #### 3 4563-7, [id number], [id number] ####[facility]ATORYCLIA [id number] [place] [address] [place] MONO%, CSF 20 % Normal 10-50 [facility] Comment on above: Order Comment: Speci men Type: CEREBROSPINAL FLUID Performed By: #### 3 4563-7, [id number], [id number] ####[facility]ORYCLIA [id number] [address] [place] NEUT%, CSF 72 % High 0-3 [facility] Comment on above: Order Comment: Speci men Type: CEREBROSPINAL FLUID Performed By: #### 3 4563-7, [id number], [id number] ####[facility]ORYCLIA [id number] [address] OF [facility] CSF PATHOLOGIST INTERP (LAB REFLEX ORDER-NO BILL)on 06-02-2021 CSF STAFF REVIEW Negative Normal [facility] Comment on above: Order Comment: Speci men Type: CEREBROSPINAL FLUID Performed By: #### 3 4563-7, [id number], [id number] ####[facility]ORYCLIA [id number] [address] Pathologist name Reviewed by Amador Stevens MD [facility] Comment on above: Order Comment: Speci men Type: CEREBROSPINAL FLUID Performed By: #### 3 4563-7, [id number], [id number] ####[facility]ORYCLIA [id number] [address] Cell count panel (CSF)on Clarity (CSF) Clear Normal Clear [facility] Comment on above: Order Comment: Speci men Type: CEREBROSPINAL FLUID Performed By: #### 3 4563-7, [id number], [id number] ####[facility]ORYCLIA [id number] [address] Clarity (Unsp spec) Not Indicated Normal Clear [facility] Comment on above: Order Comment: Speci men Type: CEREBROSPINAL FLUID Performed By: #### 3 4563-7, [id number], [id number] ####[facility]ORYCLIA [id number] [address] Color (CSF) Colorless Normal Colorless [facility] Comment on above: Order Comment: Speci men Type: CEREBROSPINAL FLUID Performed By: #### 3 4563-7, [id number], GVZ4321 ####[facility]ORYCLIA [id number] [address] Color (Spun CSF) Not Indicated Normal Colorless [facility] Comment on above: Order Comment: Speci men Type: CEREBROSPINAL FLUID Performed By: #### 3 4563-7, [id number], [id number] ####[facility]ORYCLIA [id number] [address] CSF TUBE NUMBER [employer] Normal [facility] Comment on above: Order Comment: Speci men Type: CEREBROSPINAL FLUID Performed By: #### 3 4563-7, [id number], [id number] ####[facility]ORYCLIA [id number] [address] RBC Manual cnt (CSF) [#/Vol] 117 cells/uL High 0-5 [facility] Comment on above: Order Comment: Speci men Type: CEREBROSPINAL FLUID Performed By: #### 3 4563-7, [id number], [id number] ####[facility]ORYCLIA [id number] [address] WBC Manual cnt (CSF) [#/Vol] 1 cells/uL Normal 0-5 [facility] Comment on above: Order Comment: Speci men Type: CEREBROSPINAL FLUID Performed By: #### 3 4563-7, [id number], [id number] ####[facility]ORYCLIA [id number] [address] Glucose CSF-mCncon 2 Glucose (CSF) [Mass/Vol] 82 mg/dL High 40-70 [facility] Comment on above: Order Comment: Speci men Type: CEREBROSPINAL FLUID Result Comment: Lumb ar CSF glucose values of healthy patients are approximately 60% of the plasma values and must always be compared with a concurrently measured plasma value for adequate clinical interpretation.References: 1. Glucose HK (GLUC3) [package insert V 12.0 [place]]. [employer], [place], [place]. September 2015. 2. Michelle Moore, Loki, H. (2015). Chapter 7: Glucose and Lactate. F. Irina orse al.(eds.), Cerebrospinal Fluid in Clinical Neurology. [place]: [employer]. Performed By: #### 2 342-4 ####[facility]ATORYCLIA [id number] [address] HEPATIC FUNCTION PNLon 06-02 Albumin [Mass/Vol] 3.2 g/dL Low 3.9-4.9 [facility] Comment on above: Order Comment: Speci men Type: BLOOD SPECIMEN Performed By: #### [place], 41253-8 ####[facility]ATORYCLIA [id number] [address] ALP [Catalytic activity/Vol] 67 U/L Normal 38-113 [facility] Comment on above: Order Comment: Speci men Type: BLOOD SPECIMEN Performed By: #### [place], 49021-9 ####[facility]ORYCLIA [id number] [address] ALT With P-5'-P [Catalytic activity/Vol] 16 U/L Normal 10-54 [facility] Comment on above: Order Comment: Speci men Type: BLOOD SPECIMEN Performed By: #### [place], 09662-3 ####[facility]ORYCLIA [id number] [address] AST With P-5'-P [Catalytic activity/Vol] 25 U/L Normal 14-40 [facility] Comment on above: Order Comment: Speci men Type: BLOOD SPECIMEN Performed By: #### [place], 43186-4 ####[facility]ORYCLIA [id number] [address] Bilirubin [Mass/Vol] 0.2 mg/dL Normal 0.2-1.3 [facility] Comment on above: Order Comment: Speci men Type: BLOOD SPECIMEN Performed By: #### [place], [address]-0 ####[facility]ORYCLIA [id number] [address] Bilirubin.conjugated [Mass/Vol] mg/dL Normal <0.2 [facility] Comment on above: Order Comment: Speci men Type: BLOOD SPECIMEN Performed By: #### H FP, 61358-4 ####[facility]ORYCLIA [id number] [address] Protein [Mass/Vol] 5.8 g/dL Low 6.3-8.0 [facility] Comment on above: Order Comment: Speci men Type: BLOOD SPECIMEN Performed By: #### H FP, 72316-5 ####[facility]ORYCLIA [id number] [address] MRI BRAIN WO/W IVCONon 06-02 MRI BRAIN WO/W IVCON Normal [facility] Magnesium SerPl-mCncon 06-02 Magnesium [Mass/Vol] 2.0 mg/dL Normal 1.7-2.3 [facility] Comment on above: Order Comment: Speci men Type: BLOOD SPECIMEN Performed By: #### 2 4321-2, , 2776-05 ####[facility]ATORYCLIA [id number] [address] NT-proBNP SerPl-ncon 06-02 Natriuretic peptide.B prohormone N-Terminal [Mass/Vol] 296 pg/mL High <125 [facility] Comment on above: Order Comment: Speci men Type: BLOOD SPECIMEN Performed By: #### H FP, 79918-7 ####[facility]ATORYCLIA [id number] [address] [place] POTASSIUM BLDon 06-02-2021 Potassium [Moles/Vol] 3.2 mmol/L Low 3.7-5.1 [facility] Comment on above: Order Comment: Speci men Type: BLOOD SPECIMEN Performed By: #### K 1 ####[facility]ATORYCLIA [id number] [address] [place] Phosphate SerPl-ncon 06-02 Phosphate [Mass/Vol] 2.1 mg/dL Low 2.7-4.8 [facility] Comment on above: Order Comment: Speci men Type: BLOOD SPECIMEN Performed By: #### 2 4321-2, , 2776-05 ####[facility]ATORYCLIA [id number] [place] [address] [place] Vancomycin random [Mass/Vol] on 06-02-2021 Vancomycin [Mass/Vol] 18.8 ug/mL Normal 10.0-20.0 [facility] Comment on above: Order Comment: Speci men Type: BLOOD SPECIMEN Result Comment: Refe rence ranges and high/low indicator flags are provided as general guidelines only. The treating physician must determine appropriate target levels/dosing based on the specific clinical situation. Performed By: #### 4 091-5 ####[facility]ORATORYCLIA [id number] [address] STATES OF [facility] ALLIED HEALTHon 06-01-2021 ALLIED HEALTH Normal [facility] ALLIED HEALTH Normal [facility] ALLIED HEALTH Normal [facility] ARTERIAL BLOOD GASESon 06-01 Base excess Calc (Bld) [Moles/Vol] 1 mmol/L Normal 0-2 [facility] Comment on above: Order Comment: Speci men Type: ARTERIAL BLOOD SPECIMEN Performed By: #### A LLBG ####[facility]ATORYCLIA [id number] [address] Body temperature 97.52 [degF] Normal [facility] Comment on above: Order Comment: Speci men Type: ARTERIAL BLOOD SPECIMEN Performed By: #### A LLBG ####[facility]ATORYCLIA [id number] [address] CALCIUM IONIZED, PH CORRECTED 1.13 mmol/L Normal 1.08-1.30 [facility] Comment on above: Order Comment: Speci men Type: ARTERIAL BLOOD SPECIMEN Performed By: #### A LLBG ####[facility]ORYCLIA [id number] [address] Calcium.ionized (BldV) [Mass/Vol] 1.12 mmol/L Normal 1.08-1.30 [facility] Comment on above: Order Comment: Speci men Type: ARTERIAL BLOOD SPECIMEN Performed By: #### A LLBG ####[facility]ORYCLIA [id number] [address] Carboxyhemoglobin (BldA) [Mass fraction] 1.6 % Normal 0.0-2.0 [facility] Comment on above: Order Comment: Speci men Type: ARTERIAL BLOOD SPECIMEN Result Comment: Carb oxyhemoglobin Reference Range for Smokers: 2.0-8.0% Performed By: #### A LLBG ####[facility]ORYCLIA [id number] [address] CO2 (Bld) [Partial pressure] 41 mm Hg Normal 36-46 [facility] Comment on above: Order Comment: Speci men Type: ARTERIAL BLOOD SPECIMEN Performed By: #### A LLBG ####[facility]ORYCLIA [id number] [address] [place] CO2 [Moles/Vol] 23.0 mmol/L Normal 22-28 [facility] Comment on above: Order Comment: Speci men Type: ARTERIAL BLOOD SPECIMEN Performed By: #### A LLBG ####[facility]ORYCLIA [id number] [address] CO2 adjusted to patient's actual temperature (Bld) [Partial pressure] 40 mmHg Normal 36-46 [facility] Comment on above: Order Comment: Speci men Type: ARTERIAL BLOOD SPECIMEN Performed By: #### A LLBG ####[facility]ORYCLIA [id number] [address] FIO2 40 % Normal [facility] Comment on above: Order Comment: Speci men Type: ARTERIAL BLOOD SPECIMEN Performed By: #### A LLBG ####[facility]ORYCLIA [id number] [address] Glucose [Mass/Vol] 127 mg/dL High 60-105 [facility] Comment on above: Order Comment: Speci men Type: ARTERIAL BLOOD SPECIMEN Performed By: #### A LLBG ####[facility]ORYCLIA [id number] [address] HCO3 (Bld) [Moles/Vol] 25 mmol/L Normal 22-26 [facility] Comment on above: Order Comment: Speci men Type: ARTERIAL BLOOD SPECIMEN Performed By: #### A LLBG ####[facility]ATORYCLIA [id number] [address] [place] Hematocrit (Bld) [Volume fraction] 33.7 % Low 39.0-51.0 [facility] Comment on above: Order Comment: Speci men Type: ARTERIAL BLOOD SPECIMEN Performed By: #### A LLBG ####[facility]ORYCLIA [id number] [address] Hemoglobin (Bld) [Mass/Vol] 10.9 g/dL Low 13.0-17.0 [facility] Comment on above: Order Comment: Speci men Type: ARTERIAL BLOOD SPECIMEN Performed By: #### A LLBG ####[facility]ORYCLIA [id number] [address] INHALED TIDAL VOLUME (ML) 500 Normal [facility] Comment on above: Order Comment: Speci men Type: ARTERIAL BLOOD SPECIMEN Performed By: #### A LLBG ####[facility]ORYCLIA [id number] [address] INVASIVE VENTILATOR MODE PRVC=Pressure Regulated Volume Control [facility] Comment on above: Order Comment: Speci men Type: ARTERIAL BLOOD SPECIMEN Performed By: #### A LLBG ####[facility]ORYCLIA [id number] [address] Methemoglobin (Bld) [Mass fraction] % Normal 0.0-1.5 [facility] Comment on above: Order Comment: Speci men Type: ARTERIAL BLOOD SPECIMEN Performed By: #### A LLBG ####[facility]ORYCLIA [id number] [address] O2 THERAPY Ventilator Normal [facility] Comment on above: Order Comment: Speci men Type: ARTERIAL BLOOD SPECIMEN Performed By: #### A LLBG ####[facility]ORYCLIA [id number] [address] Oxygen (Bld) [Partial pressure] 64 mm Hg Low 85-95 [facility] Comment on above: Order Comment: Speci men Type: ARTERIAL BLOOD SPECIMEN Performed By: #### A LLBG ####[facility]ORYCLIA [id number] [address] Oxygen adjusted to patient's actual temperature (Bld) [Partial pressure] 61.8 mmHg Low 85-95 [facility] Comment on above: Order Comment: Speci men Type: ARTERIAL BLOOD SPECIMEN Performed By: #### A LLBG ####[facility]ORYCLIA [id number] [address] OXYGEN SATURATION, ARTERIAL 94 % Low 95-98 [facility] Comment on above: Order Comment: Speci men Type: ARTERIAL BLOOD SPECIMEN Performed By: #### A LLBG ####[facility]ORYCLIA [id number] [address] Oxyhemoglobin (BldA) [Mass fraction] 92 % Low 95-98 [facility] Comment on above: Order Comment: Speci men Type: ARTERIAL BLOOD SPECIMEN Performed By: #### A LLBG ####[facility]ORYCLIA [id number] [address] PEEP/CPAP 5 cmH2O Normal [facility] Comment on above: Order Comment: Speci men Type: ARTERIAL BLOOD SPECIMEN Performed By: #### A LLBG ####[facility]ORYCLIA [id number] [address] pH (Bld) 7.40 [pH] Normal 7.35-7.45 [facility] Comment on above: Order Comment: Speci men Type: ARTERIAL BLOOD SPECIMEN Performed By: #### A LLBG ####[facility]ORYCLIA [id number] [address] pH adjusted to patient's actual temperature (Bld) 7.41 Normal 7.35-7.45 [facility] Comment on above: Order Comment: Speci men Type: ARTERIAL BLOOD SPECIMEN Performed By: #### A LLBG ####[facility]ORYCLIA [id number] [address] Potassium [Moles/Vol] 3.1 mmol/L Low 3.5-5.0 [facility] Comment on above: Order Comment: Speci men Type: ARTERIAL BLOOD SPECIMEN Performed By: #### A LLBG ####[facility]ORYCLIA [id number] [address] SET VENTILATOR RESPIRATORY RATE (BPM) 18 BPM Normal [facility] Comment on above: Order Comment: Speci men Type: ARTERIAL BLOOD SPECIMEN Performed By: #### A LLBG ####[facility]ORYCLIA [id number] [address] Sodium [Moles/Vol] 141 mmol/L Normal 136-144 [facility] Comment on above: Order Comment: Speci men Type: ARTERIAL BLOOD SPECIMEN Performed By: #### A LLBG ####[facility]ORYCLIA [id number] [address] BASE DEFICIT, ARTERIAL -1.0 mmol/L Normal -2-0 [facility] Comment on above: Order Comment: Speci men Type: ARTERIAL BLOOD SPECIMEN Performed By: #### A LLBG ####[facility]ORYCLIA [id number] [address] Body temperature 98.24 [degF] Normal [facility] Comment on above: Order Comment: Speci men Type: ARTERIAL BLOOD SPECIMEN Performed By: #### A LLBG ####[facility]ORYCLIA [id number] [address] CALCIUM IONIZED, PH CORRECTED 1.08 mmol/L Normal 1.08-1.30 [facility] Comment on above: Order Comment: Speci men Type: ARTERIAL BLOOD SPECIMEN Performed By: #### A LLBG ####[facility]ORYCLIA [id number] [address] Calcium.ionized (BldV) [Mass/Vol] 1.15 mmol/L Normal 1.08-1.30 [facility] Comment on above: Order Comment: Speci men Type: ARTERIAL BLOOD SPECIMEN Performed By: #### A LLBG ####[facility]ATORYCLIA [id number] [place] [address] [place] Carboxyhemoglobin (BldA) [Mass fraction] 1.4 % Normal 0.0-2.0 [facility] Comment on above: Order Comment: Speci men Type: ARTERIAL BLOOD SPECIMEN Result Comment: Carb oxyhemoglobin Reference Range for Smokers: 2.0-8.0% Performed By: #### A LLBG ####[facility]ORYCLIA [id number] [address] [place] CO2 (Bld) [Partial pressure] 59 mm Hg High 36-46 [facility] Comment on above: Order Comment: Speci men Type: ARTERIAL BLOOD SPECIMEN Performed By: #### A LLBG ####[facility]ORYCLIA [id number] [address] CO2 [Moles/Vol] 24.5 mmol/L Normal 22-28 [facility] Comment on above: Order Comment: Speci men Type: ARTERIAL BLOOD SPECIMEN Performed By: #### A LLBG ####[facility]ORYCLIA [id number] [address] CO2 adjusted to patient's actual temperature (Bld) [Partial pressure] 58 mmHg High 36-46 [facility] Comment on above: Order Comment: Speci men Type: ARTERIAL BLOOD SPECIMEN Performed By: #### A LLBG ####[facility]ORYCLIA [id number] [address] [place] FIO2 40 % Normal [facility] Comment on above: Order Comment: Speci men Type: ARTERIAL BLOOD SPECIMEN Performed By: #### A LLBG ####[facility]ORYCLIA [id number] [address] [place] Glucose [Mass/Vol] 128 mg/dL High 60-105 [facility] Comment on above: Order Comment: Speci men Type: ARTERIAL BLOOD SPECIMEN Performed By: #### A LLBG ####[facility]ORYCLIA [id number] [address] [place] HCO3 (Bld) [Moles/Vol] 26 mmol/L Normal 22-26 [facility] Comment on above: Order Comment: Speci men Type: ARTERIAL BLOOD SPECIMEN Performed By: #### A LLBG ####[facility]ORYCLIA [id number] [address] Hematocrit (Bld) [Volume fraction] 35.6 % Low 39.0-51.0 [facility] Comment on above: Order Comment: Speci men Type: ARTERIAL BLOOD SPECIMEN Performed By: #### A LLBG ####[facility]ORYCLIA [id number] [address] Hemoglobin (Bld) [Mass/Vol] 11.5 g/dL Low 13.0-17.0 [facility] Comment on above: Order Comment: Speci men Type: ARTERIAL BLOOD SPECIMEN Performed By: #### A LLBG ####[facility]ORYCLIA [id number] [address] INHALED TIDAL VOLUME (ML) 500 Normal [facility] Comment on above: Order Comment: Speci men Type: ARTERIAL BLOOD SPECIMEN Performed By: #### A LLBG ####[facility]ORYCLIA [id number] [address] INVASIVE VENTILATOR MODE PRVC=Pressure Regulated Volume Control Normal [facility] Comment on above: Order Comment: Speci men Type: ARTERIAL BLOOD SPECIMEN Performed By: #### A LLBG ####[facility]ORYCLIA [id number] [address] Methemoglobin (Bld) [Mass fraction] % Normal 0.0-1.5 [facility] Comment on above: Order Comment: Speci men Type: ARTERIAL BLOOD SPECIMEN Performed By: #### A LLBG ####[facility]ORYCLIA [id number] [address] O2 THERAPY Ventilator Normal [facility] Comment on above: Order Comment: Speci men Type: ARTERIAL BLOOD SPECIMEN Performed By: #### A LLBG ####[facility]ORYCLIA [id number] [address] Oxygen (Bld) [Partial pressure] 88 mm Hg Normal 85-95 [facility] Comment on above: Order Comment: Speci men Type: ARTERIAL BLOOD SPECIMEN Performed By: #### A LLBG ####[facility]ORYCLIA [id number] [address] Oxygen adjusted to patient's actual temperature (Bld) [Partial pressure] 86.5 mmHg Normal 85-95 [facility] Comment on above: Order Comment: Speci men Type: ARTERIAL BLOOD SPECIMEN Performed By: #### A LLBG ####[facility]ORYCLIA [id number] [address] OXYGEN SATURATION, ARTERIAL 95 % Normal 95-98 [facility] Comment on above: Order Comment: Speci men Type: ARTERIAL BLOOD SPECIMEN Performed By: #### A LLBG ####[facility]ORYCLIA [id number] [address] Oxyhemoglobin (BldA) [Mass fraction] 93 % Low 95-98 [facility] Comment on above: Order Comment: Speci men Type: ARTERIAL BLOOD SPECIMEN Performed By: #### A LLBG ####[facility]ORYCLIA [id number] [address] PEEP/CPAP 5 cmH2O Normal [facility] Comment on above: Order Comment: Speci men Type: ARTERIAL BLOOD SPECIMEN Performed By: #### A LLBG ####[facility]ORYCLIA [id number] [address] pH (Bld) 7.27 [pH] Low 7.35-7.45 [facility] Comment on above: Order Comment: Speci men Type: ARTERIAL BLOOD SPECIMEN Performed By: #### A LLBG ####[facility]ORYCLIA [id number] [address] pH adjusted to patient's actual temperature (Bld) 7.28 Low 7.35-7.45 [facility] Comment on above: Order Comment: Speci men Type: ARTERIAL BLOOD SPECIMEN Performed By: #### A LLBG ####[facility]ORYCLIA [id number] [address] Potassium [Moles/Vol] 3.3 mmol/L Low 3.5-5.0 [facility] Comment on above: Order Comment: Speci men Type: ARTERIAL BLOOD SPECIMEN Performed By: #### A LLBG ####[facility]ORATORYCLIA [id number] [address] SET VENTILATOR RESPIRATORY RATE (BPM) 14 BPM Normal [facility] Comment on above: Order Comment: Speci men Type: ARTERIAL BLOOD SPECIMEN Performed By: #### A LLBG ####[facility]ORATORYCLIA [id number] [address] Sodium [Moles/Vol] 141 mmol/L Normal 136-144 [facility] Comment on above: Order Comment: Speci men Type: ARTERIAL BLOOD SPECIMEN Performed By: #### A LLBG ####[facility]ORATORYCLIA [id number] [address] Bacteria CSF Culton 06-01-19 22 Bacteria identified Cx Nom (CSF) CULTURE, CSF: No growth 14 days GRAM STAIN: No organisms seen Rare Polymorphonuclear leukocytes Moderate Red Blood Cells Gram stain performed on cytospun specimen. Normal [facility] Comment on above: Performed By: #### 6 06-4 ####[facility]ORATORYCLIA [id number] [address] Bacteria Spec Resp Culton Bacteria identified Respiratory culture Nom (Unsp spec) CULTURE, RESPIRATORY: No growth 2 days GRAM STAIN: No organisms seen No Polymorphonuclear Leukocytes Normal [facility] Comment on above: Performed By: #### 3 2355-0 ####[facility]ORYCLIA [id number] [address] Basic metabolic 2000 panelon 06-01-2021 Anion gap [Moles/Vol] 8 mmol/L Low 9-18 [facility] Comment on above: Order Comment: Speci men Type: BLOOD SPECIMEN Performed By: #### 2 4321-2, , 2776-05 ####[facility]ORATORYCLIA [id number] [address] Calcium [Mass/Vol] 7.8 mg/dL Low 8.5-10.2 [facility] Comment on above: Order Comment: Speci men Type: BLOOD SPECIMEN Performed By: #### 2 4321-2, , 2776-05 ####[facility] LABORATORYCLIA [id number] [address] OF [facility] Chloride [Moles/Vol] 109 mmol/L High 97-105 [facility] Comment on above: Order Comment: Speci men Type: BLOOD SPECIMEN Performed By: #### 2 4321-2, , 2776-05 ####[facility]ORATORYCLIA [id number] [address] CO2 [Moles/Vol] 26 mmol/L Normal 22-30 [facility] Comment on above: Order Comment: Speci men Type: BLOOD SPECIMEN Performed By: #### 2 4321-2, , 2776-05 ####[facility]ORATORYCLIA [id number] [address] OF [facility] Creatinine [Mass/Vol] 0.82 mg/dL Normal 0.73-1.22 [facility] Comment on above: Order Comment: Speci men Type: BLOOD SPECIMEN Performed By: #### 2 4321-2, , 2776-05 ####[facility] LABORATORYCLIA [id number] [place] [address] [place] GFR/1.73 sq M.predicted MDRD (S/P/Bld) [Vol rate/Area] mL/min/{1.73_m2} Normal [facility] Comment on above: [...] actual GFR. Performed By: #### 2 432-2, , 2776-05 ####[facility] LABORATORYCLIA [id number] [place] [address] [place] Glucose [Mass/Vol] 105 mg/dL High 74-99 [facility] Comment on above: Order Comment: Speci men Type: BLOOD SPECIMEN Result Comment: The [employer] Diabetes Association (ADA) provides guidance for cutoff [...] Standards of Medical Care in Diabetes 2016, [employer] Diabetes Association. Diabetes Care. 2016.39(Suppl 1). Performed By: #### 2 432-2, , 2776-05 ####[facility]ORATORYCLIA [id number] [address] [place] Potassium [Moles/Vol] 3.8 mmol/L Normal 3.7-5.1 [facility] Comment on above: Order Comment: Speci men Type: BLOOD SPECIMEN Performed By: #### 2 432-2, , 2776-05 ####[facility]ORATORYCLIA [id number] [address] [place] Sodium [Moles/Vol] 143 mmol/L Normal 136-144 [facility] Comment on above: Order Comment: Speci men Type: BLOOD SPECIMEN Performed By: #### 2 4321-2, 67119-7, 2776- ####[facility]ORATORYCLIA [id number] [address] Urea nitrogen [Mass/Vol] 15 mg/dL Normal 9-24 [facility] Comment on above: Order Comment: Speci men Type: BLOOD SPECIMEN Performed By: #### 2 4321-2, , 2776-05 ####[facility]ORATORYCLIA [id number] [address] CBC panel Auto (Bld)on 06-01 Erythrocyte distribution width (RBC) [Ratio] 15.4 % High 11.5-15.0 [facility] Comment on above: Order Comment: Speci men Type: BLOOD SPECIMEN Performed By: #### 5 8410-2 ####[facility]ORATORYCLIA [id number] [address] Hematocrit (Bld) [Volume fraction] 38.4 % Low 39.0-51.0 [facility] Comment on above: Order Comment: Speci men Type: BLOOD SPECIMEN Performed By: #### 5 8410-2 ####[facility]ORATORYCLIA [id number] [address] Hemoglobin (Bld) [Mass/Vol] 11.1 g/dL Low 13.0-17.0 [facility] Comment on above: Order Comment: Speci men Type: BLOOD SPECIMEN Performed By: #### 5 8410-2 ####[facility]ORATORYCLIA [id number] [address] MCH (RBC) [Entitic mass] 26.9 pg Normal 26.0-34.0 [facility] Comment on above: Order Comment: Speci men Type: BLOOD SPECIMEN Performed By: #### 5 8410-2 ####[facility]ORATORYCLIA [id number] [address] MCHC (RBC) [Mass/Vol] 28.9 g/dL Low 30.5-36.0 [facility] Comment on above: Order Comment: Speci men Type: BLOOD SPECIMEN Performed By: #### 5 8410-2 ####[facility]ORATORYCLIA [id number] [address] MCV (RBC) [Entitic vol] 93.2 fL Normal 80.0-100.0 [facility] Comment on above: Order Comment: Speci men Type: BLOOD SPECIMEN Performed By: #### 5 8410-2 ####[facility]ORATORYCLIA [id number] [address] Nucleated RBC (Bld) [#/Vol] 10*3/uL Normal <0.01 [facility] Comment on above: Order Comment: Speci men Type: BLOOD SPECIMEN Performed By: #### 5 8410-2 ####[facility]ATORYCLIA [id number] [address] Platelet mean volume (Bld) [Entitic vol] 10.2 fL Normal 9.0-12.7 [facility] Comment on above: Order Comment: Speci men Type: BLOOD SPECIMEN Performed By: #### 5 8410-2 ####[facility]ATORYCLIA [id number] [address] Platelets (Bld) [#/Vol] 231 10*3/uL Normal 150-400 [facility] Comment on above: Order Comment: Speci men Type: BLOOD SPECIMEN Performed By: #### 5 8410-2 ####[facility]ATORYCLIA [id number] [address] RBC (Bld) [#/Vol] 4.12 10*6/uL Low 4.20-6.00 [facility] Comment on above: Order Comment: Speci men Type: BLOOD SPECIMEN Performed By: #### 5 8410-2 ####[facility]ATORYCLIA [id number] [address] WBC (Bld) [#/Vol] 10.99 10*3/uL Normal 3.70-11.00 [facility] Comment on above: Order Comment: Speci men Type: BLOOD SPECIMEN Performed By: #### 5 8410-2 ####[facility]ORYCLIA [id number] [address] [place] CONSULT PROGon 06-01-2021 CONSULT PROG Normal [facility] CSF MANUAL DIFFon 06-01-2021 DIF TTL, CSF 100 cells counted Normal [facility] Comment on above: Order Comment: Speci men Type: CEREBROSPINAL FLUID Performed By: #### 3 4563-7, [id number] ####[facility]ATORYCLIA [id number] [address] [place] LYMPH%, CSF 11 % Low 50-90 [facility] Comment on above: Order Comment: Speci men Type: CEREBROSPINAL FLUID Performed By: #### 3 4563-7, [id number] ####[facility]ORYCLIA [id number] [address] [place] MONO%, CSF 10 % Normal 10-50 [facility] Comment on above: Order Comment: Speci men Type: CEREBROSPINAL FLUID Performed By: #### 3 4563-7, [id number] ####[facility]ATORYCLIA [id number] [address] [place] NEUT%, CSF 79 % High 0-3 [facility] Comment on above: Order Comment: Speci men Type: CEREBROSPINAL FLUID Performed By: #### 3 4563-7, [id number] ####[facility]ATORYCLIA [id number] [address] [place] CT BRAIN WO IVCONon 06-01-[address] BRAIN WO IVCON Normal [facility] Cell count panel (CSF)on Clarity (CSF) Clear Normal Clear [facility] Comment on above: Order Comment: Speci men Type: CEREBROSPINAL FLUID Performed By: #### 3 4563-7, [id number] ####[facility]ORYCLIA [id number] [address] Clarity (Unsp spec) Not Indicated Normal Clear [facility] Comment on above: Order Comment: Speci men Type: CEREBROSPINAL FLUID Performed By: #### 3 4563-7, [id number] ####[facility]ORYCLIA [id number] [address] Color (CSF) Colorless Normal Colorless [facility] Comment on above: Order Comment: Speci men Type: CEREBROSPINAL FLUID Performed By: #### 3 4563-7, [id number] ####[facility]ORYCLIA [id number] [address] Color (Spun CSF) Not Indicated Normal Colorless [facility] Comment on above: Order Comment: Speci men Type: CEREBROSPINAL FLUID Performed By: #### 3 4563-7, [id number] ####[facility]ORYCLIA [id number] [address] CSF TUBE NUMBER [employer] Normal [facility] Comment on above: Order Comment: Speci men Type: CEREBROSPINAL FLUID Performed By: #### 3 4563-7, [id number] ####[facility]ORYCLIA [id number] [address] RBC Manual cnt (CSF) [#/Vol] 171 cells/uL High 0-5 [facility] Comment on above: Order Comment: Speci men Type: CEREBROSPINAL FLUID Performed By: #### 3 4563-7, [id number] ####[facility]ORYCLIA [id number] [address] WBC Manual cnt (CSF) [#/Vol] 5 cells/uL Normal 0-5 [facility] Comment on above: Order Comment: Speci men Type: CEREBROSPINAL FLUID Performed By: #### 3 4563-7, [id number] ####[facility]ORYCLIA [id number] [address] [place] FUNGAL CULTUREon 06-01-2021 FUNGAL CULTURE CULTURE, FUNGAL: No Fungus isolated after 28 days Normal [facility] Comment on above: Performed By: #### F CUL ####[facility]ORATORYCLIA [id number] [place] [address] [place] Glucose CSF-mCncon 2 Glucose (CSF) [Mass/Vol] 78 mg/dL High 40-70 [facility] Comment on above: Order Comment: Speci men Type: CEREBROSPINAL FLUID Result Comment: Lumb ar CSF glucose values of healthy patients are approximately 60% of the plasma values and must always be compared with a concurrently measured plasma value for adequate clinical interpretation.References: 1. Glucose HK (GLUC3) [package insert V 12.0 [place]]. [employer], [place], [place]. September 2015. 2. Michelle Moore, Loki HGarfield (2015). Chapter 7: Glucose and Lactate. Marianela Rothman.(eds.), Cerebrospinal Fluid in Clinical Neurology. [place]: [employer]. Performed By: #### 2 342-4, 2880-3 ####[facility]ORATORYCLIA [id number] [address] [place] HERPES SIMPLEX CSFon 022 HERPES SIMPLEX CSF HSV PCR SPEC SOURCE: Cerebrospinal Fluid HSV-1: Negative for Herpes Simplex Virus Type 1 by PCR HSV-2: Negative for Herpes Simplex Virus Type 2 by PCR Normal [facility] Comment on above: Performed By: #### H [facility] ####[facility] LABCLIA [id number] [id number] [address] [place] Lactate (Bld) [Moles/Vol]on 06-01-2021 Lactate [Moles/Vol] 0.5 mmol/L Normal 0.5-2.2 [facility] Comment on above: Order Comment: Speci men Type: BLOOD SPECIMEN Performed By: #### 3 2693-4 ####[facility]ORATORYCLIA [id number] [place] [address] [place] MENINGITIS ENCEPHALITIS BIOF IREon 06-01-2021 MENINGITIS ENCEPHALITIS BIOFIRE Negative Normal [facility] Comment on above: Order Comment: Speci men Type: CEREBROSPINAL FLUID Performed By: #### M GEBF ####[facility] CENTERCLIA [id number] [place] [address] Magnesium [facility]Pl[facility] Magnesium [Mass/Vol] 2.2 mg/dL Normal 1.7-2.3 [facility] Comment on above: Order Comment: Speci men Type: BLOOD SPECIMEN Performed By: #### 2 4321-2, , 2776-05 ####[facility]ORATORYCLIA [id number] [address] Microorganism Spec Culton Microorganism identified Cx Nom (Unsp spec) CULTURE, AFB: No Acid Fast Bacilli isolated after 42 days AFB STAIN: No acid fast bacilli seen by flurochrome stain Normal [facility] Comment on above: Performed By: #### 1 1475-1 ####[facility] [id number] [address] PROCALCITONIN (LAB)on 2021 Procalcitonin [Mass/Vol] 0.08 ng/mL Normal <0.09 [facility] Comment on above: Order Comment: Speci men Type: BLOOD SPECIMEN Result Comment: For a guided interpretation of test results, please visit the Change in Procalcitonin Calculator, [email or web address]. Performed By: #### P ROCAL ####[facility]ORATORYCLIA [id number] [address] [place] Phosphate SerPl-ncon 06-01 Phosphate [Mass/Vol] 3.5 mg/dL Normal 2.7-4.8 [facility] Comment on above: Order Comment: Speci men Type: BLOOD SPECIMEN Performed By: #### 2 4321-2, , 2776-05 ####[facility]ATORYCLIA [id number] [address] [place] Prot CSF-mCncon 06-01-2021 Protein (CSF) [Mass/Vol] 52 mg/dL High 15-45 [facility] Comment on above: Order Comment: Speci men Type: CEREBROSPINAL FLUID Performed By: #### 2 342-4, 2880-3 ####[facility]ATORYCLIA [id number] [address] Vancomycin random [Mass/Vol] on 06-01-2021 Vancomycin [Mass/Vol] 14.6 ug/mL Normal 10.0-20.0 [facility] Comment on above: Order Comment: Speci men Type: BLOOD SPECIMEN Result Comment: Refe rence ranges and high/low indicator flags are provided as general guidelines only. The treating physician must determine appropriate target levels/dosing based on the specific clinical situation. Performed By: #### 4 091-5 ####[facility]ATORYCLIA [id number] [address] XR CHEST 1V FRONTALon 2021 XR CHEST 1V FRONTAL Normal [facility] XR CHEST 1V FRONTAL Normal [facility] XR NECK SOFT TISSUE 2V AP/LA Ton 06-01-2021 XR NECK SOFT TISSUE 2V AP/LAT Normal [facility] XR SKULL 2V AP/LATon 022 XR SKULL 2V AP/LAT Normal [facility] ALLIED HEALTHon 05-31-2021 ALLIED HEALTH HNO ID: [id number] Author: Christina Lynne RT(R) Service: Radiology Author Type: Technologist Type: Allied Health Filed: 05/31/2021 5:48 PM Note Text: MRI tomorrow per RN. Normal [facility] ALLIED HEALTH Normal [facility] ALLIED HEALTH Normal [facility] ALLIED HEALTH Normal [facility] ANES POSTPROC EVALon 022 ANES POSTPROC EVAL Normal [facility] ANES PRE-OPon 05-31-2021 ANES PRE-OP Normal [facility] BRIEF OP NOTon 05-31-2021 BRIEF OP NOT Normal [facility] Bacteria Bld Culton 05-31-19 22 Bacteria identified Cx Nom (Bld) CULTURE, BLOOD: No growth 5 days Normal [facility] Comment on above: Performed By: #### 6 00-7 ####[facility]ATORYCLIA [id number] [place], [place] [id number] [place] [address] STATES [facility] Bacteria CSF Culton 05-31-19 22 Bacteria identified Cx Nom (CSF) CULTURE, CSF: No growth 14 days GRAM STAIN: No organisms seen Rare Polymorphonuclear leukocytes Rare Red Blood Cells Gram stain performed on cytospun specimen. Normal [facility] Comment on above: Performed By: #### 6 06-4 ####[facility] LABORATORYCLIA [id number] [address] OF [facility] Basic metabolic 2000 panelon 05-31-2021 Anion gap [Moles/Vol] 9 mmol/L Normal 9-18 [facility] Comment on above: Order Comment: Speci men Type: BLOOD SPECIMEN Performed By: #### 2 777-1, , ####[facility]ORATORYCLIA [id number] [address] STATES OF [facility] Calcium [Mass/Vol] 8.2 mg/dL Low 8.5-10.2 [facility] Comment on above: Order Comment: Speci men Type: BLOOD SPECIMEN Performed By: #### 2 777-1, , ####[facility]ORATORYCLIA [id number] [address] STATES OF [facility] Chloride [Moles/Vol] 110 mmol/L High 97-105 [facility] Comment on above: Order Comment: Speci men Type: BLOOD SPECIMEN Performed By: #### 2 777-1, , ####[facility]ORATORYCLIA [id number] [place] [address] [place] CO2 [Moles/Vol] 27 mmol/L Normal 22-30 [facility] Comment on above: Order Comment: Speci men Type: BLOOD SPECIMEN Performed By: #### 2 777-1, , ####[facility]ORYCLIA [id number] [address] [place] Creatinine [Mass/Vol] 0.85 mg/dL Normal 0.73-1.22 [facility] Comment on above: Order Comment: [facility] Type: BLOOD SPECIMEN Performed By: #### 2 777-1, 79326-7, ####[facility]ORATORYCLIA [id number] [place] [address] [place] GFR/1.73 sq M.predicted MDRD (S/P/Bld) [Vol rate/Area] mL/min/{1.73_m2} Normal [facility] Comment on above: [...] actual GFR. Performed By: #### 2 777-1, 02830-4, ####[facility] LABORATORYCLIA [id number] [place] [id number] [place] Glucose [Mass/Vol] 111 mg/dL High 74-99 [facility] Comment on above: Order Comment: [facility] Type: BLOOD SPECIMEN Result Comment: The [place] Diabetes Association (ADA) provides guidance for cutoff [...] Standards of Medical Care in Diabetes 2016, [place] Diabetes Association. Diabetes Care. 2016.39(Suppl 1). Performed By: #### 2 777-1, 16328-8, ####[facility]ATORYCLIA [id number] [address] STATES OF [facility] Potassium [Moles/Vol] 3.7 mmol/L Normal 3.7-5.1 [facility] Health Care Comment on above: Order Comment: Speci men Type: BLOOD SPECIMEN Performed By: #### 2 777-1, 96232-4, ####[facility]ORY[facility]IA [id number] [address] STATES OF [facility] Sodium [Moles/Vol] 146 mmol/L High 136-144 [facility] Comment on above: Order Comment: Speci men Type: BLOOD SPECIMEN Performed By: #### 2 777-1, , ####[facility]ORATORYCLIA [id number] [address] STATES OF [facility] Urea nitrogen [Mass/Vol] 16 mg/dL Normal 9-24 [facility] Comment on above: Order Comment: Speci men Type: BLOOD SPECIMEN Performed By: #### 2 777-1, , ####[facility]IA [id number] [address] STATES OF [place] CASE MGT INIT ASSESon 2021 CASE MGT INIT ASSES Normal [facility] CBC W Auto Differential pane l (Bld)on 05-31-2021 Basophils (Bld) [#/Vol] 0.04 10*3/uL Normal <0.11 [facility] Comment on above: Order Comment: Speci men Type: BLOOD SPECIMEN Performed By: #### 5 7021-8 ####[facility]CLIA [id number] [address] Basophils/100 WBC (Bld) 0.5 % Normal [facility] Comment on above: Order Comment: Speci men Type: BLOOD SPECIMEN Performed By: #### 5 7021-8 ####[facility] [id number] [address] Differential cell count method Nom (Bld) Auto Normal [facility] Comment on above: Order Comment: Speci men Type: BLOOD SPECIMEN Performed By: #### 5 7021-8 ####[facility]ORYCLIA [id number] [address] Eosinophils (Bld) [#/Vol] 0.27 10*3/uL Normal <0.46 [facility] Comment on above: Order Comment: Speci men Type: BLOOD SPECIMEN Performed By: #### 5 7021-8 ####[facility]ORATORYCLIA [id number] [address] Eosinophils/100 WBC (Bld) 3.3 % Normal [facility] Comment on above: Order Comment: Speci men Type: BLOOD SPECIMEN Performed By: #### 5 7021-8 ####[facility]ATORYCLIA [id number] [address] Erythrocyte distribution width (RBC) [Ratio] 15.4 % High 11.5-15.0 [facility] Comment on above: Order Comment: Speci men Type: BLOOD SPECIMEN Performed By: #### 5 7021-8 ####[facility]ATORYCLIA [id number] [address] Hematocrit (Bld) [Volume fraction] 37.9 % Low 39.0-51.0 [facility] Comment on above: Order Comment: Speci men Type: BLOOD SPECIMEN Performed By: #### 5 7021-8 ####[facility]ATORYCLIA [id number] [address] Hemoglobin (Bld) [Mass/Vol] 11.5 g/dL Low 13.0-17.0 [facility] Comment on above: Order Comment: Speci men Type: BLOOD SPECIMEN Performed By: #### 5 7021-8 ####[facility]ORYCLIA [id number] [address] IMMATURE GRAN % 0.4 % Normal [facility] Comment on above: Order Comment: Speci men Type: BLOOD SPECIMEN Performed By: #### 5 7021-8 ####[facility]ATORYCLIA [id number] [address] IMMATURE GRAN ABS 0.03 k/uL Normal <0.10 [facility] Comment on above: Order Comment: Speci men Type: BLOOD SPECIMEN Performed By: #### 5 7021-8 ####[facility]ORYCLIA [id number] [address] Lymphocytes (Bld) [#/Vol] 1.90 10*3/uL Normal 1.00-4.00 [facility] Comment on above: Order Comment: Speci men Type: BLOOD SPECIMEN Performed By: #### 5 7021-8 ####[facility]ORYCLIA [id number] [address] Lymphocytes/100 WBC (Bld) 23.0 % Normal [facility] Comment on above: Order Comment: Speci men Type: BLOOD SPECIMEN Performed By: #### 5 7021-8 ####[facility]ATORYCLIA [id number] [address] MCH (RBC) [Entitic mass] 28.0 pg Normal 26.0-34.0 [facility] Comment on above: Order Comment: Speci men Type: BLOOD SPECIMEN Performed By: #### 5 7021-8 ####[facility]ATORYCLIA [id number] [address] MCHC (RBC) [Mass/Vol] 30.3 g/dL Low 30.5-36.0 [facility] Comment on above: Order Comment: Speci men Type: BLOOD SPECIMEN Performed By: #### 5 7021-8 ####[facility]ATORYCLIA [id number] [address] MCV (RBC) [Entitic vol] 92.4 fL Normal 80.0-100.0 [facility] Comment on above: Order Comment: Speci men Type: BLOOD SPECIMEN Performed By: #### 5 7021-8 ####[facility]ORYCLIA [id number] [address] Monocytes (Bld) [#/Vol] 0.60 10*3/uL Normal <0.87 [facility] Comment on above: Order Comment: Speci men Type: BLOOD SPECIMEN Performed By: #### 5 7021-8 ####[facility]ORYCLIA [id number] [address] Monocytes/100 WBC (Bld) 7.3 % Normal [facility] Comment on above: Order Comment: Speci men Type: BLOOD SPECIMEN Performed By: #### 5 7021-8 ####[facility]ORYCLIA [id number] [address] Neutrophils (Bld) [#/Vol] 5.41 10*3/uL Normal 1.45-7.50 [facility] Comment on above: Order Comment: Speci men Type: BLOOD SPECIMEN Performed By: #### 5 7021-8 ####[facility]ORYCLIA [id number] [address] Neutrophils/100 WBC (Bld) 65.5 % Normal [facility] Comment on above: Order Comment: Speci men Type: BLOOD SPECIMEN Performed By: #### 5 7021-8 ####[facility]ORYCLIA [id number] [address] Nucleated RBC (Bld) [#/Vol] 10*3/uL Normal <0.01 [facility] Comment on above: Order Comment: Speci men Type: BLOOD SPECIMEN Performed By: #### 5 7021-8 ####[facility]ORYCLIA [id number] [address] Nucleated RBC/100 WBC (Bld) [Ratio] 0.0 /100 WBC Normal 0.0 [facility] Comment on above: Order Comment: Speci men Type: BLOOD SPECIMEN Performed By: #### 5 7021-8 ####[facility]ATORYCLIA [id number] [address] Platelet mean volume (Bld) [Entitic vol] 9.8 fL Normal 9.0-12.7 [facility] Comment on above: Order Comment: Speci men Type: BLOOD SPECIMEN Performed By: #### 5 7021-8 ####[facility] LABORATORYCLIA [id number] [address] Platelets (Bld) [#/Vol] 251 10*3/uL Normal 150-400 [facility] Comment on above: Order Comment: Speci men Type: BLOOD SPECIMEN Performed By: #### 5 7021-8 ####[facility] LABORATORYCLIA [id number] [address] RBC (Bld) [#/Vol] 4.10 10*6/uL Low 4.20-6.00 [facility] Comment on above: Order Comment: Speci men Type: BLOOD SPECIMEN Performed By: #### 5 7021-8 ####[facility] LABORATORYCLIA [id number] [address] WBC (Bld) [#/Vol] 8.25 10*3/uL Normal 3.70-11.00 [facility] Comment on above: Order Comment: Speci men Type: BLOOD SPECIMEN Performed By: #### 5 7021-8 ####[facility]ATORYCLIA [id number] [address] CONSULTon 05-31-2021 CONSULT Normal [facility] CONSULT Normal [facility] CONSULT Normal [facility] CT BRAIN WO IVCONon 05-31-19 CT BRAIN WO IVCON Normal [facility] CT BRAIN WO IVCON Normal [facility] CT CHEST WO IVCONon 05-31-19 CT CHEST WO IVCON Normal [facility] Cortis SerPl-mCncon 05-31-19 Cortisol [Mass/Vol] 31.0 ug/dL High AM: 5.3-22.5, PM: 3.4-16.8 [facility] Comment on above: Order Comment: Speci men Type: BLOOD SPECIMEN Result Comment: Prov ided reference range is from 6-10 AM sample collection time.Cortisol Reference Range: 6-10 AM = 4.8-19.5 ug/dL, 4-8 PM = 2.5-11.9 ug/dL Performed By: #### 2 143-6, 3016-3 ####[facility]ATORYCLIA [id number] [address] Cryptoc Ag Spec Ql LAon 05-08 Cryptococcus sp Ag LA Ql (Unsp spec) Negative Normal [facility] Comment on above: Performed By: #### 4 3228-6 ####[facility]ORATORYCLIA [id number] [address] OF [place] HISTORY PHYSICALon 2 HISTORY PHYSICAL Normal [facility] Magnesium SerPl-mCncon 05-31 Magnesium [Mass/Vol] 2.2 mg/dL Normal 1.7-2.3 [facility] Comment on above: Order Comment: Speci men Type: BLOOD SPECIMEN Performed By: #### 2 777-1, 40056-7, ####[facility]ATORYCLIA [id number] [address] OF [place] NURSING PROGon 05-31-2021 NURSING PROG Normal [facility] NUTRITIONon 05-31-2021 NUTRITION Normal [facility] OPERATIVE NOon 05-31-2021 OPERATIVE NO Normal [facility] Phosphate SerPl-mCncon 05-31 Phosphate [Mass/Vol] 3.3 mg/dL Normal 2.7-4.8 [facility] Comment on above: Order Comment: Speci men Type: BLOOD SPECIMEN Performed By: #### 2 777-1, 47397-8, ####[facility]ATORYCLIA [id number] [address] [place] STAPH AUREUS PCRon 2 S. aureus and MRSA panel MEGAN+probe (Nose) Normal Negative [facility] Comment on above: Order Comment: Speci men Type: SWAB OF INTERNAL NOSE Result Comment: Nega tive for Staphylococcus aureus by PCR.Negative for MRSA by PCR Performed By: #### S APCR ####[facility]ORATORYCLIA [id number] [address] TSH SerPl-aCncon 05-31-2021 TSH Qn 0.829 m[IU]/L Normal 0.270-4.200 [facility] Comment on above: Order Comment: Speci men Type: BLOOD SPECIMEN Performed By: #### 2 143-6, 3016-3 ####[facility]ATORYCLIA [id number] [address] XR CHEST 1V FRONTALon 2021 XR CHEST 1V FRONTAL Normal [facility] XR CHEST 1V FRONTAL Normal [facility] Blood Cultureon 05-30-2021 Bacteria identified Cx Nom (Bld) Culture Result - No growth 5 days Normal [facility] Comment on above: Performed By: #### C AD #### [facility] [address] [place] [phone] Bacteria identified Cx Nom (Bld) Sp. Request/Comment: - 8.2MLS Culture Result - No growth 5 days Normal [facility] Comment on above: Performed By: #### C AD #### [facility] [address] [place] [address] C-Reactive Proteinon 022 C-Reactive Protein 1.7 mg/dL High <0.9 [facility] Comment on above: Performed By: #### C RP ####[facility] [address] [place] [phone] CNDSon 05-30-2021 CNDS HNO ID: [id number] Author: Columba Carroll PA-C Service: Hospital Medicine Author Type: Physician Towel Hemmer Type: Discharge Summary Filed: 05/30/2021 12:49 PM [...] Team: Attending Provider: Ayaka Menjivar MD Physician Towel Hemmer: Columba Carroll PA-C Consulting: Lilo Mendoza MD [...] consulted. Neurology suggested empiric abx coverage for RAILWAY SIGNAL OPERATOR infection Rocephin and Vancomycin was started. Tele-neuro also suggested an MRI brain be obtained prior to LP to check ROLL MACHINE OPERATOR shunt and decrease risk of herniation in neurosurgery capable facility. Transfer to [facility] requested. Sepsis lactate was 1.3. ABG showed pO2 67.8, placed patient on 2L NC.Follow B1, B12, and RPR pending. Transitions of Care Critical Issues: - patient transferred for [facility] for management of possible RAILWAY SIGNAL OPERATOR infection and herniation. LABS AND PROCEDURES [...] intravenously q 1 (more content not included)... [facility] CONSULTon 05-30-2021 CONSULT HNO ID: [id number] Author: Juan Carlos Mckenzie MD Service: Infectious [...] vertebrae with counting from the craniocervical junction. Feather Renovator: [facility] Transcribe Date/Time: May 29 2021 8:59P Dictated by : CARLOS YOUNGER MD This examination was interpreted and the report reviewed and electronically signed by: CARLOS YOUNGER MD on May 29 2021 9:14PM EST ? CT CERVICAL SPINE WO (more content not included)... Normal [facility] CONSULT HNO ID: [id number] Author: Lilo Mendoza MD Service: Neurology General Author Type: Physician Type: Consults Filed: 05/30/2021 10:56 AM Note Text: [facility] TeleNeurology Consult Note Patient seen using [facility]. Recommendations are placed in the chart. Please review. For questions after hours, when teleneurologist is not available, for [place]: Please Page [phone] for the [facility] Neurology Group from 12pm to 8Am Admitting Provider/Consulted by:Hermes Roca MD Time of Note:05/30/2021 Patient Name:Andrew Sifuentes Admit Date:05/29/2021 Hospital Day:0 CC: altered mental status History of Present Illness: Andrew Sifuentes is a 71 year old unknown handed male with limited information about past medical history including venous insufficiency s/p EVLT, hydrocepalus s/p ROLL MACHINE OPERATOR shunt in 1987 with multiple revisions [...] Date , Taking? , Authorizing Provider Tosha Tanac Medication methylPREDNISolone (MEDROL, JADYN,) 4 mg tablet, [...] Reflexes Right Lef (more content not included)... [facility] CONSULT PROGon 05-30-2021 CONSULT PROG [facility] CONSULT PROG HNO ID: [id number] Author: Shannon Gutierres [facility] Service: Pharmacy Author Type: Pharmacist Type: Consult Progress Note Filed: 05/30/2021 2:35 PM Note Text: PHARMACY VANCOMYCIN DOSING NOTE Patient Name: Andrew Sifuentes Admission Date: 05/29/2021 Date of Consult: 05/30/2021 Time of Consult: 2:32 PM Indication: possible RAILWAY SIGNAL OPERATOR infection Goal Range: 15-20 mcg/mL RECOMMENDATIONS/PLAN: [...] any questions, please contact inpatient pharmacy at [phone]. Age: [age] year old Allergies: ALLERGIES Allergen [...] Levels: No results found for: IMANI Gutierres [facility] Normal [facility] Creatinineon 05-30-2021 Creatinine [Mass/Vol] 0.86 mg/dL Normal 0.73-1.22 [facility] Comment on above: Performed By: #### C RET1 ####[facility] [address] [place] [address] eGFR- Amer. >60 Normal [facility] Comment on above: Performed By: #### C RET1 ####[facility] [address] [place] [address] eGFR-All Other Races >60 Normal [facility] Comment on above: Result Comment: eGFR [...] at [email or web address]. Performed By: #### C RET1 ####[facility] [address] [place] [phone] Crypto Antigen Deton 022 Crypto Antigen Det Sp. Request/Comment: - SST Test Result - Duplicate request Account Credited [facility] Comment on above: Performed By: #### C AD #### [facility] [address] [place] [id number] [facility] [address] [place] [address] Crypto Antigen Det Sp. Request/Comment: - SST Test Result - Cryptococcal antigen detection result: Negative By latex agglutination [facility] Comment on above: Performed By: #### C AD #### [facility] [address] [place] [id number] [facility] [address] [place] [address] ED NOTEon 05-30-2021 ED NOTE HNO ID: [id number] Author: Aletha Lopez RN Service: ? Author Type: Registered Nurse Type: ED Notes Filed: 05/29/2021 11:16 PM Note Text: Patient changed for incontinent urine, labs redrawn and sent. Patient aware of plan to be admitted and agrees with plan [facility] HISTORY PHYSICALon HISTORY PHYSICAL Normal [facility] HISTORY PHYSICAL HNO ID: [id number] Author: Hermes Roca MD Service: Hospital Medicine Author Type: Physician Type: HANDP Filed: 05/30/2021 1:03 AM Note Text: DEPARTMENT OF HOSPITAL MEDICINE HISTORY AND PHYSICAL EXAM SERVICE DATE: 05/29/2021 SERVICE TIME: 11:18 PM Primary Care Physician: Mateus Burris MD NIGHT AND WEEKEND COVERAGE: Please page [phone] until 7:30am this morning. After 7:30am please check the treatment team banner and page the appropriate service. 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 Normal [facility] Magnesium SerPl-mCncon 05-30 Magnesium [Mass/Vol] 2.5 mg/dL High 1.7-2.3 [facility] Comment on above: Order Comment: Speci men Type: BLOOD SPECIMEN Performed By: #### 1 9123-9, 2777-1 ####[facility]ORATORYCLIA [id number] [place] [address] [place] NURSING PROGon 05-30-2021 NURSING PROG HNO ID: [id number] Author: Precious Cervantes RN Service: ? Author Type: Registered Nurse Type: Nursing Progress Note Filed: 05/30/2021 11:26 AM Note Text: Nursing Progress Note Patient Name: Andrew Sifuentes Patient Location: [place] [address]/[id number] Daily Note: 07- Report received from shift mgr RN, patient resting in bed at this time, call light within reach, bed low and locked. Asked the patient to state his name because shift mgr RN was unable to complete his admission [...] This note was completed by: Precious Cervantes [facility] NURSING PROG HNO ID: [id number] Author: Lyubov Day RN Service: ? Author Type: Registered Nurse Type: Nursing Progress Note Filed: 05/30/2021 1:27 AM Note Text: Nursing Progress Note Patient Name: Andrew Sifuentes Patient Location: [place] [address]/[id number] 0100: Patient is unresponsive to questions. Patient [...] This note was completed by: Lyubov Day [facility] Phosphate SerPl-mCncon 05-30 Phosphate [Mass/Vol] 3.5 mg/dL Normal 2.7-4.8 [facility] Comment on above: Order Comment: Speci men Type: BLOOD SPECIMEN Performed By: #### 1 9123-9, 2777-1 ####[facility]ORATORYCLIA [id number] [place] [address] [place] Sepsis Lactateon 05-30-2021 Sepsis Lactate 1.5 mmol/L Normal 0.5-2.0 [facility] Comment on above: Performed By: #### S LACT ####[facility] [address] [place] [phone] Syphilis Ttl w/Reflxon 05-30 Syphilis Interp Cannot exclude recen t Treponemal infection if specimen collected within 7 to 10 days after appearance of suspect lesions or 2 to 3 weeks after an exposure. Clinical correlation is required. [facility] Comment on above: Performed By: #### S YPHTX, B1WB ####[facility] [address] [place], [place] [phone] Syphilis Screen Rslt Non-Reactive Normal Non Reactive [facility] Comment on above: Performed By: #### S YPHTX, B1WB ####[facility] [address] [place], [place] [phone] THERAPY NTon 05-30-2021 THERAPY NT HNO ID: [id number] Author: Bette Jimenez OTR/L Service: Occupational Therapy Author Type: Occupational Therapist Type: Therapy (PT/OT/Speech/Resp) Filed: 05/30/2021 10:29 AM Note Text: OCCUPATIONAL THERAPY MISSED VISIT SERVICE DATE: 05/30/2021 SERVICE TIME: 1017 to 1019 ROOM: [place] [address] Attempted Evaluation. Patient not seen due to Not following commands. Per nursing patient was seen by neuro and they are talking about having him transferred to [facility] secondary to shunt concerns. Will re attempt in the event patient continues to be admitted at [place] and is able to participate. SIGNATURE: RADHA Andres/L PATIENT NAME: Andrew Sifuentes DATE: May 30, 2021 TIME: 10:21 AM Normal [facility] THERAPY NT HNO ID: [id number] Author: Bette Velasquez PT Service: Physical Therapy Author Type: Physical Therapist Type: Therapy (PT/OT/Speech/Resp) Filed: 05/30/2021 8:42 AM Note Text: PHYSICAL THERAPY MISSED VISIT SERVICE DATE: 05/30/2021 SERVICE TIME: 0840 to 0840 ROOM: [place] [address] Attempted Evaluation. Patient not seen due to (pt difficult to awake per RN, very lethargic). Will re-attempt when schedule permits. SIGNATURE: Bette Velasquez PT PATIENT NAME: Andrew Sifuentes DATE: May 30, 2021 TIME: 8:41 AM Normal [facility] Toxicology Screen,Uron 05-30 Amphetamines, Urine Negative Normal Negative [facility] Comment on above: Result Comment: Cuto ff threshold at 1000 ng/mL. Performed By: #### C AD #### [facility] [address] [place] [address] [facility] [address] [place], [place] [address] Barbiturates, Urine Negative Normal Negative [facility] Comment on above: Result Comment: Cuto ff threshold at 200 ng/mL. Performed By: #### C AD #### [facility] [address] [place] [id number] [facility] [address] [place] [address] Benzodiazepines, Ur Negative Normal Negative [facility] Comment on above: Result Comment: Cuto ff threshold at 200 ng/mL. Performed By: #### C AD #### [facility] [address] [place] [phone] [facility] [address] [place] [address] Cannabinoids, Urine Negative Normal Negative [facility] Comment on above: Result Comment: Cuto ff threshold at 50 ng/mL. Performed By: #### C AD #### [facility] [address] [place] [phone] [facility] [address] [place] [address] Cocaine, Urine Negative Normal Negative [facility] Comment on above: Result Comment: Cuto ff threshold at 300 ng/mL. Performed By: #### C AD #### [facility] [address] [place] [phone] [facility] [address] [place] [phone] Opiates, Urine Negative Normal Negative [facility] Comment on above: Result Comment: Cuto ff threshold at 300 ng/mL. Performed By: #### C AD #### [facility] [address] [place] [phone] [facility] [address] [place], [place] [address] Oxycodone, Urine Negative Normal Negative [facility] Comment on above: Result Comment: Cuto [...] on the same specimen through Client Services ([phone]) if contacted within 48 hours of initial testing. [1]Substance Abuse and Mental Health Services Administration (2012). Clinical Drug Testing in Primary Care Technical Assistance Publication Series 32. Department of Health and Human Services, [place], p.10. Performed By: #### C AD #### [facility] [address] [place] [phone] Phencyclidine, Urine Negative Normal Negative [facility] Comment on above: Result Comment: Cuto ff threshold at 25 ng/mL. Performed By: #### C AD #### [facility] [address] [place] [phone] Troponin Ton 05-30-2021 Troponin T <0.010 Normal 0.000-0.029 [facility] Comment on above: Performed By: #### T NT ####[facility] [address] [place] [phone] Urinalysison 05-30-2021 Bilirubin, Urine Negative Normal Negative [facility] Comment on above: Performed By: #### C AD #### [facility] [address] [place] [phone] Clarity (U) Slightly Cloudy Critically abnormal Clear [facility] Comment on above: Performed By: #### C AD #### [facility] [address] [place] [address] Laboratories [address] [place], [place] [address] Color (U) Yellow Normal Yellow [facility] Comment on above: Performed By: #### C AD #### [facility] [address] [place] [address] [facility] [address] [place], [place] [address] Glucose Ql (U) Negative Normal Negative [facility] Comment on above: Performed By: #### C AD #### [facility] [address] [place] [address] [facility] [address] [place], [place] [address] Hemoglobin/Blood,Ur Negative Normal Negative [facility] Comment on above: Performed By: #### C AD #### [facility] [address] [address] [place] [address] [facility] [address] [place], [place] [address] Ketones Ql (U) Negative Normal Negative [facility] Comment on above: Performed By: #### C AD #### [facility] [address] [place] [address] [facility] [address] [place], [place] [address] Leukest Negative Normal Negative [facility] Comment on above: Performed By: #### C AD #### [facility] [address] [place] [address] [facility] [address] [place], [place] [address] Nitrite Ql (U) Negative Normal Negative [facility] Comment on above: Performed By: #### C AD #### [facility] [address] [place] [address] [facility] [address] [place], [place] [address] pH (U) 8.5 [pH] High 5.0-8.0 [facility] Comment on above: Performed By: #### C AD #### [facility] [address] [place] [address] [facility] [address] [place], [place] [address] Protein, Urine Negative Normal Negative [facility] Comment on above: Performed By: #### C AD #### [facility] [address] [place] [address] [address] [place], [place] [address] Specific [place], Ur 1.015 Normal 1.005-1.030 [facility] Comment on above: Performed By: #### C AD #### [facility] [address] [place] [address] [address] Urobilinogen Qn (U) 0.2 {Marianne'U}/dL Normal 0.2-1.0 [facility] Comment on above: Performed By: #### C AD #### [facility] [address] [place] [address] [address] [place], [place] [address] Vitamin B1, Whole Blon 05-30 Vitamin B1 (TDP), WB 207.1 nmol/L Normal 84.0-213.0 [facility] Comment on above: Result Comment: This assay measures the concentration of thiamine diphosphate (TDP), the primary active form of vitamin B1. Approximately 90 percent of vitamin B1 present in whole blood is TDP. Thiamine and thiamine monophosphate, which comprise the remaining 10 percent, are not measured. This test was developed and its performance characteristics determined by [facility]'s Isrrael Perez [facility] Pathology and [facility] [place] ([facility]). It has not been cleared or approved by the FDA. [facility] is regulated under CLIA as qualified to perform high complexity testing. This test is used for clinical purposes. It should not be regarded as investigational or for research. Performed By: #### S YPHTX, B1WB ####[id number] [place], [place] [phone] Vitamin B12on 05-30-2021 Cobalamin (Vitamin B12) [Mass/Vol] 494 pg/mL Normal 232-1245 [facility] Comment on above: Performed By: #### C AD #### [facility] [address] [place] [address] [facility] [address] [place], [place] [address] [facility] HEALTHon 05-29-2021 [facility] HNO ID: [id number] Author: RT Kitty(R) Service: Radiology Author Type: Technologist Type: [facility] Filed: 05/29/2021 8:51 PM Note Text: Radiology [...] Kitty(R) May 29, 2021 8:51 PM Normal [facility] HNO ID: [id number] Author: Markie Fish Service: ? Author Type: Entry Level Chemist Type: [facility] Filed: 05/29/2021 8:39 PM Note Text: Radiology [...] Fish May 29, 2021 8:38 PM Normal [facility] CBC and Differentialon 05-29 Abs Baso 0.05 k/uL Normal <0.11 [facility] Comment on above: Performed By: #### C MP, MG1, CBCDIF ####[facility] [address] [place] [address] Abs [place] 0.72 k/uL Normal <0.87 [facility] Comment on above: Performed By: #### C MP, MG1, CBCDIF ####[facility] [address] [place] [address] Abs Neut 7.86 k/uL High 1.45-7.50 [facility] Comment on above: Performed By: #### C MP, MG1, CBCDIF ####[place] [address] Absolute nRBC <0.01 Normal <0.01 [facility] Comment on above: Performed By: #### C MP, MG1, CBCDIF ####[place] [address] Basophils/100 WBC (Bld) 0.5 % [facility] Comment on above: Performed By: #### C MP, MG1, CBCDIF ####[place] [address] DTYPE Auto Diff Normal [facility] Comment on above: Performed By: #### C MP, MG1, CBCDIF ####[place] [address] Eosinophils (Bld) [#/Vol] 0.10 10*3/uL Normal <0.46 [facility] Comment on above: Performed By: #### C MP, MG1, CBCDIF ####[place] [address] Eosinophils/100 WBC (Bld) 0.9 % [facility] Comment on above: Performed By: #### C MP, MG1, CBCDIF ####[place] [address] Erythrocyte distribution width (RBC) [Ratio] 15.5 % High 11.5-15.0 [facility] Comment on above: Performed By: #### C MP, MG1, CBCDIF ####[facility] [address] [place] [address] Hematocrit (Bld) [Volume fraction] 41.6 % Normal 39.0-51.0 [facility] Comment on above: Performed By: #### C MP, MG1, CBCDIF ####[facility] [address] [place] [address] Hemoglobin (Bld) [Mass/Vol] 12.7 g/dL Low 13.0-17.0 [facility] Comment on above: Performed By: #### C MP, MG1, CBCDIF ####[place] [address] Lymphocytes (Bld) [#/Vol] 2.04 10*3/uL Normal 1.00-4.00 [facility] Comment on above: Performed By: #### C MP, MG1, CBCDIF ####[facility] [address] [place] [address] Lymphocytes/100 WBC (Bld) 18.9 % Normal [facility] Comment on above: Performed By: #### C MP, MG1, CBCDIF ####[facility] [address] [place] [address] MCH 27.3 pG Normal 26.0-34.0 [facility] Comment on above: Performed By: #### C MP, MG1, CBCDIF ####[facility] [address] [place] [address] MCHC (RBC) [Mass/Vol] 30.5 g/dL Normal 30.5-36.0 [facility] Comment on above: Performed By: #### C MP, MG1, CBCDIF ####[facility] [address] [place] [address] MCV (RBC) [Entitic vol] 89.5 fL Normal 80.0-100.0 [facility] Comment on above: Performed By: #### C MP, MG1, CBCDIF ####[facility] [address] [place] [address] Monocytes/100 WBC (Bld) 6.7 % Normal [facility] Comment on above: Performed By: #### C MP, MG1, CBCDIF ####[facility] [address] [place] [address] Neutrophils/100 WBC (Bld) 73.0 % Normal [facility] Comment on above: Performed By: #### C MP, MG1, CBCDIF ####[facility] [address] [place] [address] NRBCs 0.0 /100 WBC Normal 0 [facility] Comment on above: Performed By: #### C MP, MG1, CBCDIF ####[facility] [address] [place] [address] Platelet mean volume (Bld) [Entitic vol] 10.1 fL Normal 9.0-12.7 [facility] Comment on above: Performed By: #### C MP, MG1, CBCDIF ####[facility] [address] [place] [address] Platelets (Bld) [#/Vol] 291 10*3/uL Normal 150-400 [facility] Comment on above: Performed By: #### C MP, MG1, CBCDIF ####[facility] [address] [place] [address] RBC (Bld) [#/Vol] 4.65 10*6/uL Normal 4.20-6.00 [facility] Comment on above: Performed By: #### C MP, MG1, CBCDIF ####[facility] [address] [place] [address] WBC (Bld) [#/Vol] 10.77 10*3/uL Normal 3.70-11.00 [facility] Comment on above: Performed By: #### C MP, MG1, CBCDIF ####[facility] [address] [place] [address] CT BRAIN WO IVCONon 05-29-19 CT BRAIN WO IVCON * * *Final Report* * * DATE OF EXAM: May 29 2021 8:42PM [facility] 0504 - CT BRAIN WO IVCON / PROCEDURE REASON: Head trauma, headache * * * * Physician Interpretation * * * * EXAMINATION: CT CERVICAL SPINE WO IVCON, CT BRAIN WO IVCON CLINICAL HISTORY: C-spine trauma, NEXUS/CCR positive (accession [id number]), Head trauma, headache (accession [id number]) TECHNIQUE: Serial axial unenhanced images were obtained from the vertex to the foramen magnum. Spiral, high resolution axial unenhanced images were obtained from the skull base to the cervicothoracic junction with sagittal and coronal planar reconstructions. Dose-Length Product (DLP): 2132 mGy*cm. CT Dose Reduction Employed: Automated exposure control (AEC) COMPARISON: 08/13/[address] 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 The intracranial fragments [...] vertebrae with counting from the craniocervical junction. [facility] Renov[facility] Transcribe Date/Time: May 29 2021 8:59P Dictated by : CARLOS YOUNGER MD This examination was interpreted and the report reviewed and electronically signed by: CARLOS YOUNGER MD on May 29 2021 9:14PM EST [id number] [facility] CT CERVICAL SPINE WO IVCONon 05-29-2021 CT CERVICAL SPINE WO IVCON * * *Final Report* * * DATE OF EXAM: May 29 2021 8:42PM [facility] 0505 - CT CERVICAL SPINE WO IVCON / PROCEDURE REASON: C-spine trauma, NEXUS/CCR positive * * * * Physician Interpretation * * * * EXAMINATION: CT CERVICAL SPINE WO IVCON, CT BRAIN WO IVCON CLINICAL HISTORY: C-spine trauma, NEXUS/CCR positive (accession [id number]), Head trauma, headache (accession [id number]) TECHNIQUE: Serial axial unenhanced images were obtained from the vertex to the foramen magnum. Spiral, high resolution axial unenhanced images were obtained from the skull base to the cervicothoracic junction with sagittal and coronal planar reconstructions. Dose-Length Product (DLP): 2132 mGy*cm. CT Dose Reduction Employed: Automated exposure control (AEC) COMPARISON: 08/13/[address] 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 The intracranial fragments [...] vertebrae with counting from the craniocervical junction. Feather Renovator: OG Transcribe Date/Time: May 29 2021 8:59P Dictated by : CARLOS YOUNGER MD This examination was interpreted and the report reviewed and electronically signed by: CARLOS YOUNGER MD on May 29 2021 9:14PM EST [id number] [facility] Cepheid Bill only (EXCFR)on 05-29-2021 Cepheid Bill only (EXCFR) Billed for services performed Normal [facility] Comment on above: Performed By: #### C AD #### [facility] [address] [place] [address] [facility] [address] [place], [place] [address] Comp Metabolic Panelon 05-29 Albumin [Mass/Vol] 4.1 g/dL Normal 3.9-4.9 [facility] Comment on above: Performed By: #### C MP ####[facility] [address] [place] [address] ALP [Catalytic activity/Vol] 86 U/L Normal 38-113 [facility] Comment on above: Performed By: #### C MP ####[facility] [address] [place] [address] ALT [Catalytic activity/Vol] 15 U/L Normal 10-54 [facility] Comment on above: Performed By: #### C MP ####[facility] [address] [place] [address] Anion gap [Moles/Vol] 9 mmol/L Normal 9-18 [facility] Comment on above: Performed By: #### C MP ####[facility] [address] [place] [address] AST [Catalytic activity/Vol] 22 U/L Normal 14-40 [facility] Comment on above: Performed By: #### C MP ####[facility] [address] [place] [address] Bilirubin [Mass/Vol] 0.2 mg/dL Normal 0.2-1.3 [facility] Comment on above: Performed By: #### C MP ####[facility] [address] [place] [address] Calcium [Mass/Vol] 9.1 mg/dL Normal 8.5-10.2 [facility] Comment on above: Performed By: #### C MP ####[facility] [address] [place] [address] Chloride [Moles/Vol] 103 mmol/L Normal 97-105 [facility] Comment on above: Performed By: #### C MP ####[facility] [address] [place] [id number] CO2 [Moles/Vol] 29 mmol/L Normal 22-30 [facility] Comment on above: Performed By: #### C MP ####[facility] [address] [place] [address] Creatinine [Mass/Vol] 0.89 mg/dL Normal 0.73-1.22 [facility] Comment on above: Performed By: #### C MP ####[facility] [address] [place] [id number] eGFR- Amer. >60 Normal [facility] Comment on above: Performed By: #### C MP ####[facility] [address] [place] [address] eGFR-All Other Races >60 Normal [facility] Comment on above: Result Comment: eGFR [...] at [email or web address]. Performed By: #### C MP ####[facility] [address] [place] [id number] Glucose [Mass/Vol] 120 mg/dL High 74-99 [facility] Comment on above: Result Comment: The [place] Diabetes Association (ADA) provides guidance for cutoff [...] Standards of Medical Care in Diabetes 2016, [place] Diabetes Association. Diabetes Care. 2016.39(Suppl 1). Performed By: #### C MP ####[facility] [address] [place] [address] Potassium [Moles/Vol] 4.2 mmol/L Normal 3.7-5.1 [facility] Comment on above: Performed By: #### C MP ####[facility] [address] [place] [address] Protein [Mass/Vol] 7.1 g/dL Normal 6.3-8.0 [facility] Comment on above: Performed By: #### C MP ####[facility] [address] [place] [address] Sodium [Moles/Vol] 141 mmol/L Normal 136-144 [facility] Comment on above: Performed By: #### C MP ####[facility] [address] [place] [address] Urea nitrogen [Mass/Vol] 11 mg/dL Normal 9-24 [facility] Comment on above: Performed By: #### C MP ####[facility] [address] [place] [address] Albumin [Mass/Vol] 4.1 g/dL Normal 3.9-4.9 [facility] Comment on above: Performed By: #### C MP, MG1, CBCDIF ####[facility] [address] [place] [address] ALP [Catalytic activity/Vol] 86 U/L Normal 38-113 [facility] Comment on above: Performed By: #### C MP, MG1, CBCDIF ####[facility] [address] [place] [address] ALT Unable to assay due to interference from hemolysis. Suggest reorder as clinically indicated. Normal 10-54 [facility] Comment on above: Result Comment: Call ed to ED [facility] at 2128 on 05.29.21 by Sabino Performed By: #### C MP, MG1, CBCDIF ####[facility] [address] [place] [address] Anion gap [Moles/Vol] 12 mmol/L Normal 9-18 [facility] Comment on above: Performed By: #### C MP, MG1, CBCDIF ####[facility] [address] [place] [address] AST Unable to assay due to interference from hemolysis. Suggest reorder as clinically indicated. Normal 14-40 [facility] Comment on above: Result Comment: Call ed to ED [facility] at 2128 on 05.29.21 by Sabino Performed By: #### C MP, MG1, CBCDIF ####[facility] [address] [place] [address] Bilirubin [Mass/Vol] 0.2 mg/dL Normal 0.2-1.3 [facility] Comment on above: Performed By: #### C MP, MG1, CBCDIF ####[facility] [address] [place] [address] Calcium [Mass/Vol] 9.0 mg/dL Normal 8.5-10.2 [facility] Comment on above: Performed By: #### C MP, MG1, CBCDIF ####[facility] [address] [place] [address] Chloride [Moles/Vol] 102 mmol/L Normal 97-105 [facility] Comment on above: Performed By: #### C MP, MG1, CBCDIF ####[facility] [address] [place] [address] CO2 [Moles/Vol] 27 mmol/L Normal 22-30 [facility] Comment on above: Performed By: #### C MP, MG1, CBCDIF ####[facility] [address] [place] [address] Creatinine [Mass/Vol] 0.75 mg/dL Normal 0.73-1.22 [facility] Comment on above: Performed By: #### C MARÍA ELENA MG1, CBCDIF ####[facility] [address] [place] [address] eGFR- Amer. >60 Normal [facility] Comment on above: Performed By: #### C MARÍA ELENA MG1, CBCDIF ####[facility] [address] [place] [address] eGFR-All Other Races >60 Normal [facility] Comment on above: Result Comment: eGFR [...] By: #### C MARÍA ELENA MG1, CBCDIF ####[facility] [address] [place] [address] Glucose [Mass/Vol] 112 mg/dL High 74-99 [facility] Comment on above: Result Comment: The [place] Diabetes Association (ADA) provides guidance for cutoff [...] Standards of Medical Care in Diabetes 2016, [place] Diabetes Association. Diabetes Care. 2016.39(Suppl 1). Performed By: #### C MP, MG1, CBCDIF ####[facility] [address] [place] [address] Potassium Unable to assay due to interference from hemolysis. Suggest reorder as clinically indicated. Normal 3.7-5.1 [facility] Comment on above: Result Comment: Call ed to ED Álvaro at 2129 on 05.29.21 by Sabino Performed By: #### C MP, MG1, CBCDIF ####[facility] [address] [place] [address] Protein [Mass/Vol] 7.3 g/dL Normal 6.3-8.0 [facility] Comment on above: Performed By: #### C MP, MG1, CBCDIF ####[facility] [address] [place] [id number] Sodium [Moles/Vol] 141 mmol/L Normal 136-144 [facility] Comment on above: Performed By: #### C MP, MG1, CBCDIF ####[facility] Tw[address] Urea nitrogen [Mass/Vol] 11 mg/dL Normal 9-24 [facility] Comment on above: Performed By: #### C MP, MG1, CBCDIF ####[facility] [address] [place] [address] ED PROV NOTEon 05-29-2021 ED PROV NOTE HNO ID: [id number] Author: Shanell Slaguhter MD Service: ? Author Type: Physician Type: [...] No radiographic evidence of acute cardiopulmonary disease. Feather Renovator: [facility] Transcribe Date/Time: May 29 [...] vertebrae with counting from the craniocervical junction. Feather Renovator: [facility] Transcribe Date/Time: May 29 [...] vertebrae with counting from the craniocervical junction. Feather Renovator: [facility] Transcribe Date/Time: May 29 (more content not included)... 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 Provider Location: [facility] Patient Location: Outpatient Hospital Physical Exam [...] SIGNATURE: Flavio Pandya, DO Flavio Pandya, DO 05/29/[address] [facility] EXCOVD, Flu A/B, RSV (On int erfaces 1102,1120)on 05-29-2021 Influenza A PCR Negative Normal [facility] Comment on above: Performed By: #### C AD #### [facility] [address] [place] [id number] [place] [address] Influenza B PCR Negative Normal [facility] Comment on above: Performed By: #### C AD #### [facility] [address] [place], [place] [address] [place] [address] RSV PCR Negative [facility] Comment on above: Result Comment: This test has been authorized by [facility] under an Emergency Use Authorization (EUA). Performed By: #### C AD #### [facility] [address] [place], [place] [address] [place] [address] SARS-CoV-2 (COVID-19) RNA MEGAN+probe Ql (Unsp spec) UPPER RESPIRATORY TRACT SWAB Normal [facility] Comment on above: Performed By: #### C AD #### [facility] [address] [place], [place] [address] [place] [address] SARS-CoV-2 (COVID-19) RNA MEGAN+probe Ql (Unsp spec) Negative for COVID19 (SARS CoV2) by RT-PCR or equivalent method. Normal Negative for COVID19 (SARS CoV2) by RT-PCR or equivalent method. [facility] Comment on above: Result Comment: This test has been authorized by FDA under an Emergency Use Authorization (EUA). Performed By: #### C AD #### [facility] [address] [place] [id number] [place] [address] Magnesiumon 05-29-2021 Magnesium [Mass/Vol] 2.2 mg/dL Normal 1.7-2.3 [facility] Comment on above: Performed By: #### C MP, MG1, CBCDIF ####[facility] [address] [place] [address] NT Pro BNPon 05-29-2021 PRO B Natr Peptide 303 pg/mL High <125 [facility] Comment on above: Performed By: #### N TBNP ####[facility] T[address] Troponin Ton 05-29-2021 Troponin T <0.010 Normal 0.000-0.029 [facility] Comment on above: Performed By: #### T NT ####[facility] [address] [place] [address] Troponin T Unable to assay due to interference from hemolysis. Suggest reorder as clinically indicated. Normal 0.000-0.029 [facility] Comment on above: Result Comment: Call ed to LISA Rea at 2129 on 05.29.21 by Sabino Performed By: #### T NT ####[facility] [address] XR CHEST 1V FRONTAL PORTon 0 05-29-2021 [...] No radiographic evidence of acute cardiopulmonary disease. Feather Renovator: [facility] Transcribe Date/Time: May 29 2021 8:53P Dictated by : ROLY BANGURA MD This examination was interpreted and the report reviewed and electronically signed by: ROLY BANGURA MD on May 29 2021 8:54PM EST [id number] Normal [facility] COMPREHENSIVE PANELon 2020 Albumin [Mass/Vol] 3.9 g/dL Normal 3.4 - 5.0 [facility] Comment on above: Order Comment: PATIE NT FASTING Performed By: #### C MP #### [facility] [address] [place] [address] ALP [Catalytic activity/Vol] 71 U/L Normal 33 - 136 [facility] Comment on above: Order Comment: PATIE NT FASTING Performed By: #### C MP #### [facility] [address] [place] [address] ALT [Catalytic activity/Vol] 19 U/L Normal 10 - 52 [facility] Comment on above: Order Comment: PATIE NT FASTING Result Comment: Nasima ents treated with Sulfasalazine may generate falsely decreased results for ALT. Performed By: #### C MP #### [facility] [address] [place] [address] Anion gap [Moles/Vol] 13 mmol/L Normal 10 - 20 [facility] Comment on above: Order Comment: PATIE NT FASTING Performed By: #### C MP #### [facility] [address] [place] [address] AST [Catalytic activity/Vol] 20 U/L Normal 9 - 39 [facility] Comment on above: Order Comment: PATIE NT FASTING Performed By: #### C MP #### [facility] [address] [place] [address] Bilirubin [Mass/Vol] 0.6 mg/dL Normal 0.0 - 1.2 [facility] Comment on above: Order Comment: PATIE NT FASTING Performed By: #### C MP #### [facility] [address] [place] [address] Calcium [Mass/Vol] 9.0 mg/dL Normal 8.6 - 10.6 [facility] Comment on above: Order Comment: PATIE NT FASTING Performed By: #### C MP #### [facility] [address] [place] [address] Chloride [Moles/Vol] 103 mmol/L Normal 98 - 107 [facility] Comment on above: Order Comment: PATIE NT FASTING Performed By: #### C MP #### [facility] [address] [place] [address] Creatinine [Mass/Vol] 0.94 mg/dL Normal 0.50 - 1.30 [facility] Comment on above: Order Comment: PATIE NT FASTING Performed By: #### C MP #### [facility] [address] [place] [address] GFR- AM. >60 Normal >60 [facility] Comment on above: Order Comment: PATIE NT FASTING Result Comment: CALC ULATIONS OF ESTIMATED GFR ARE PERFORMED USING THE MDRD STUDY EQUATION FOR THE IDMS-TRACEABLE CREATININE METHODS. CLIN CHEM 2007;53:766-72 Performed By: #### C MP #### [facility] [address] [place] [address] GFR-NON AM. >60 Normal >60 [facility] Comment on above: Order Comment: PATIE NT FASTING Performed By: #### C MP #### [facility] [address] [place] [address] Glucose [Mass/Vol] 85 mg/dL Normal 74 - 99 [facility] Comment on above: Order Comment: PATIE NT FASTING Performed By: #### C MP #### [facility] [address] [place] [address] HCO3 (Bld) [Moles/Vol] 30 mmol/L Normal 21 - 32 [facility] Comment on above: Order Comment: PATIE NT FASTING Performed By: #### C MP #### [facility] [address] [place] [address] Potassium [Moles/Vol] 4.1 mmol/L Normal 3.5 - 5.3 [facility] Comment on above: Order Comment: PATIE NT FASTING Performed By: #### C MP #### [facility] [address] [place] [address] Protein [Mass/Vol] 6.6 g/dL Normal 6.4 - 8.2 [facility] Comment on above: Order Comment: PATIE NT FASTING Performed By: #### C MP #### [facility] [address] [place] [address] Sodium [Moles/Vol] 142 mmol/L Normal 136 - 145 [facility] Comment on above: Order Comment: PATIE NT FASTING Performed By: #### C MP #### [facility] [address] [place] [address] Urea nitrogen [Mass/Vol] 14 mg/dL Normal 6 - 23 [facility] Comment on above: Order Comment: PATIE NT FASTING Performed By: #### C MP #### [facility] [address] [place] [address] LIPID PANEL (CORONARY RISK 2 )on 09-03-2020 [...] Performed By: #### L IPID #### [facility] [address] [place] [address] Cholesterol in HDL [Mass/Vol] 50.1 mg/dL Normal [facility] Comment on above: Order Comment: PATIE NT FASTING Result Comment: . AGE VERY LOW LOW NORMAL HIGH 0-19 Y < 35 < 40 40-45 ---- 20-24 Y ---- < 40 >45 ---- >24 Y ---- < 40 40-60 >60 . Performed By: #### L IPID #### [facility] [address] [place] [address] Cholesterol in LDL [Mass/Vol] 130 mg/dL High [...] Performed By: #### L IPID #### [facility] [address] [place] [address] Cholesterol in VLDL [Mass/Vol] 30 mg/dL Normal 0 - 40 [facility] Comment on above: Order Comment: PATIE NT FASTING Performed By: #### L IPID #### [facility] [address] [place] [address] Cholesterol.total/Chol esterol in HDL [Mass ratio] 4.2 {ratio} Normal [facility] Comment on above: Order Comment: PATIE NT FASTING Result Comment: REF VALUES DESIRABLE < 3.4 HIGH RISK > 5.0 Performed By: #### L IPID #### [facility] [address] [place] [address] Triglyceride [Mass/Vol] 152 mg/dL High 0 - [...] Performed By: #### L IPID #### [facility] [address] [place] [address] PROSTATE SPEC.AG,SCREENon PROSTATE SPEC.AG,SCREEN 0.37 ng/mL Normal 0.00 - 4.00 [facility] Comment on above: Order Comment: PATIE NT FASTING Result Comment: The FDA requires that the method used for PSA assay be reported to the physician. Values obtained with different assay methods must not be used interchangeably. This test was performed at [facility] using the Siemens Atellica PSA method, which is a sandwich immunoassay using chemiluminescence for quantitation. The assay is approved for measurement of prostate-specific antigen (PSA) in serum and may be used in conjunction with a digital rectal examination in men 50 years and older as an aid in detection of prostate cancer. 9-Uxcdi-yelygacet inhibitors (e.g. Proscar, Finasteride, Avodart, Dutasteride and Elizabeth) for the treatment of BPH have been shown to lower PSA levels by an average of 50% after 6 months of treatment. Performed By: #### P SASC #### [facility] [address] [place] [address] TSH WITH REFLEX TO FREE T4 I F ABNORMALon 09-03-2020 TSH Qn 0.97 m[IU]/L Normal 0.44 - 3.98 [facility] Comment on above: Order Comment: PATIE NT FASTING Result Comment: TSH testing is performed using different testing methodology at [facility] than at other [facility]. Direct result comparisons should only be made within the same method. Performed By: #### T HYDS #### [facility] [address] [place] [address] CBC AND DIFFERENTIALon 09-02 % AUTOMATED IMMATURE [...] (cells/L). Performed By: #### C BCDF #### [facility] [address] [place] [address] Basophils (Bld) [#/Vol] 0.07 10*3/uL Normal 0.00 - 0.10 [facility] Comment on above: Order Comment: PATIE NT FASTING Result Comment: Auto mated WBC differential has been confirmed by manual smear. Performed By: #### C BCDF #### [facility] [address] [place] [address] Basophils/100 WBC (Bld) 0.9 % Normal 0.0 - 2.0 [facility] Comment on above: Order Comment: PATIE NT FASTING Performed By: #### C BCDF #### [facility] [address] [place] [address] Eosinophils (Bld) [#/Vol] 0.21 10*3/uL Normal 0.00 - 0.70 [facility] Comment on above: Order Comment: PATIE NT FASTING Performed By: #### C BCDF #### [facility] [address] [place] [address] Eosinophils/100 WBC (Bld) 2.8 % Normal 0.0 - 6.0 [facility] Comment on above: Order Comment: PATIE NT FASTING Performed By: #### C BCDF #### [facility] [address] [place] [address] Lymphocytes (Bld) [#/Vol] 2.28 10*3/uL Normal 1.20 - 4.80 [facility] Comment on above: Order Comment: PATIE NT FASTING Performed By: #### C BCDF #### [facility] [address] [place] [address] Lymphocytes/100 WBC (Bld) 30.9 % Normal 13.0 - 44.0 [facility] Comment on above: Order Comment: PATIE NT FASTING Performed By: #### C BCDF #### [facility] [address] [place] [address] Monocytes (Bld) [#/Vol] 0.50 10*3/uL Normal 0.10 - 1.00 [facility] Comment on above: Order Comment: PATIE NT FASTING Performed By: #### C BCDF #### [facility] [address] [place] [address] Monocytes/100 WBC (Bld) 6.8 % Normal 2.0 - 10.0 [facility] Comment on above: Order Comment: PATIE NT FASTING Performed By: #### C BCDF #### [facility] [address] [place] [address] Neutrophils (Bld) [#/Vol] 4.29 10*3/uL Normal 1.20 - 7.70 [facility] Comment on above: Order Comment: PATIE NT FASTING Performed By: #### C BCDF #### [facility] [address] [place] [address] Neutrophils/100 WBC (Bld) 58.3 % Normal 40.0 - 80.0 [facility] Comment on above: Order Comment: PATIE NT FASTING Performed By: #### C BCDF #### [facility] [address] [place] [address] Erythrocyte distribution width (RBC) [Ratio] 14.6 % High 11.5 - 14.5 [facility] Comment on above: Order Comment: PATIE NT FASTING Performed By: #### C BCDF #### [facility] [address] [place] [address] Hematocrit (Bld) [Volume fraction] 43.1 % Normal 41.0 - 52.0 [facility] Comment on above: Order Comment: PATIE NT FASTING Performed By: #### C BCDF #### [facility] [address] [place] [address] Hemoglobin (Bld) [Mass/Vol] 13.3 g/dL Low 13.5 - 17.5 [facility] Comment on above: Order Comment: PATIE NT FASTING Performed By: #### C BCDF #### [facility] [address] [place] [address] MCHC (RBC) [Mass/Vol] 30.9 g/dL Low 32.0 - 36.0 [facility] Comment on above: Order Comment: PATIE NT FASTING Performed By: #### C BCDF #### [facility] [address] [place] [address] MCV (RBC) [Entitic vol] 92 fL Normal 80 - 100 [facility] Comment on above: Order Comment: PATIE NT FASTING Performed By: #### C BCDF #### [facility] [address] [place] [address] NUCLEATED RBC 0.0 /100 WBC Normal 0.0-0.0 [facility] Comment on above: Order Comment: PATIE NT FASTING Performed By: #### C BCDF #### [facility] [address] [place] [address] Platelets (Bld) [#/Vol] 267 10*3/uL Normal 150 - 450 [facility] Comment on above: Order Comment: PATIE NT FASTING Performed By: #### C BCDF #### [facility] [address] [place] [address] RBC 4.69 x10E12/L Normal 4.50 - 5.90 [facility] Comment on above: Order Comment: PATIE NT FASTING Performed By: #### C BCDF #### [facility] [address] [place] [address] WBC (Bld) [#/Vol] 7.4 10*3/uL Normal 4.4 - 11.3 [facility] Comment on above: Order Comment: PATIE NT FASTING Performed By: #### C BCDF #### [facility] [address] [place] [address] RED CELL MORPHOLOGYon 2020 CHANELL CELLS Few Normal [facility] Comment on above: Order Comment: PATIE NT FASTING Performed By: #### M ORP2 #### [facility] [address] [place] [address] OVALOCYTES Few Normal [facility] Comment on above: Order Comment: PATIE NT FASTING Performed By: #### M ORP2 #### [facility] [address] [place] [address] POLYCHROMASIA Mild Normal [facility] Comment on above: Order Comment: PATIE NT FASTING Performed By: #### M ORP2 #### [facility] [address] [place] [address] RBC FRAGMENTS Few Normal [facility] Comment on above: Order Comment: PATIE NT FASTING Performed By: #### M ORP2 #### [facility] [address] [place] [address] RBC morphology finding Nom (Bld) See Below Normal [facility] Comment on above: Order Comment: PATIE NT FASTING Performed By: #### M ORP2 #### [facility] [address] [place] [address] No Panel Informationon 01-19 76 1 [facility] [...] [place] Work Phone: [email or web address] ?RetrieveTestByDateTime?P [email or web address]=[id number]&Date=1 09-13-2019&Time=15%3a11%3a 03%3a00&TestType=ECG&Site =1&OutputType=PDF&Ext=PDF [facility] [place] Work Phone: Otheron 11-13-2019 [facility] Complete Blood Count + Diffe rentialon 07-02-2020 Basophils (Bld) [#/Vol] 0.06 {x10E9/L} See Below [facility] Work Phone: Comment on above: Reference Range: 0.0 0 - 0.10 Basophils/100 WBC (Bld) 0.8 % 0.0 - 2.0 [facility] Work Phone: Eosinophils (Bld) [#/Vol] 0.18 {x10E9/L} See Below [facility] Work Phone: Comment on above: Reference Range: 0.0 0 - 0.70 Eosinophils/100 WBC (Bld) 2.5 % 0.0 - 6.0 [facility] Work Phone: Erythrocyte distribution width (RBC) [Ratio] 13.7 % See Below [facility] Work Phone: Comment on above: Reference Range: 11. 5 - 14.5 Hematocrit (Bld) [Volume fraction] 45.5 % See Below [facility] Work Phone: Comment on above: Reference Range: 41. 0 - 52.0 Hemoglobin (Bld) [Mass/Vol] 14.0 g/dL See Below [facility] Work Phone: Comment on above: Reference Range: 13. 5 - 17.5 Lymphocytes (Bld) [#/Vol] 2.15 {x10E9/L} See Below [facility] Work Phone: Comment on above: Reference Range: 1.2 0 - 4.80 Lymphocytes/100 WBC (Bld) 29.9 % See Below [facility] Work Phone: Comment on above: Reference Range: 13. 0 - 44.0 MCHC (RBC) [Mass/Vol] 30.8 g/dL below low threshold See Below [facility] Work Phone: Comment on above: Reference Range: 32. 0 - 36.0 MCV (RBC) [Entitic vol] 94 fL 80 - 100 [facility] Work Phone: Monocytes (Bld) [#/Vol] 0.49 {x10E9/L} See Below [facility] Work Phone: Comment on above: Reference Range: 0.1 0 - 1.00 Monocytes/100 WBC (Bld) 6.8 % 2.0 - 10.0 [facility] Work Phone: Neutrophils (Bld) [#/Vol] 4.30 {x10E9/L} See Below [facility] Work Phone: Comment on above: Reference Range: 1.2 0 - 7.70 Neutrophils/100 WBC (Bld) 59.9 % See Below [facility] Work Phone: Comment on above: Reference Range: 40. 0 - 80.0 Platelets (Bld) [#/Vol] 270 {x10E9/L} 150 - 450 [facility] Work Phone: RBC (Bld) [#/Vol] 4.85 {x10E12/L} See Below [facility] Work Phone: Comment on above: Reference Range: 4.5 0 - 5.90 WBC (Bld) [#/Vol] 0.0 {/100_WBC} 0.0-0.0 [facility] Work Phone: WBC (Bld) [#/Vol] 7.2 {x10E9/L} 4.4 - 11.3 [facility] Work Phone: Complete Blood Count + Differential 0.1 % 0.0 - 0.9 [facility] Work Phone: Comment on above: Immature Granulocyte Count (IG) includes promyelocytes, myelocytes and metamyelocytes but does not include bands. Percent differential counts (%) should be interpreted in the context of the absolute cell counts (cells/L). Lipid Panelon 11-06-2019 Cholesterol [Mass/Vol] 181 mg/dL 0 - 199 [facility] Work Phone: Comment on [...] dosing. Cholesterol in HDL [Mass/Vol] 52.1 mg/dL [facility] Work Phone: Comment on above: . AGE VERY LOW LOW N ORMAL HIGH 0-19 Y < 35 < 40 40-45 ---- 20-24 Y ---- < 40 >45 ---- >24 Y ---- < 40 40-60 >60. Cholesterol in LDL [Mass/Vol] 97 mg/dL 0 - 99 [facility] Work Phone: Comment on above: . NEAR BORD AGE IZABELLA RABLE OPTIMAL HIGH HIGH VERY HIGH 0-19 Y 0 - 109 --- 110-129 >/= 130 ---- 20-24 Y 0 - 119 --- 120-159 >/= 160 ---- >24 Y 0 - 99 100-129 130-159 160-189 >/=190. Cholesterol.total/Chol esterol in HDL [Mass ratio] 3.5 {ratio} [facility] Work Phone: Comment on above: REF VALUESDESIRABLE < 3.4HIGH RISK > 5.0 Triglyceride [Mass/Vol] 158 mg/dL above high threshold 0 - 149 [facility] Work Phone: Comment on above: [...] Lipid Panel 32 mg/dL 0 - 40 [facility] Work Phone: Metabolic Panelon 11-06-2019 ALP [Catalytic activity/Vol] 70 U/L 33 - 136 [facility] Work Phone: Anion gap [Moles/Vol] 13 mmol/L 10 - 20 [facility] Work Phone: Bilirubin [Mass/Vol] 0.6 mg/dL 0.0 - 1.2 [facility] Work Phone: Calcium [Mass/Vol] 9.4 mg/dL 8.6 - 10.6 [facility] Work Phone: Chloride [Moles/Vol] 99 mmol/L 98 - 107 [facility]ician [facility] Work Phone: CO2 [Moles/Vol] 30 mmol/L 21 - 32 [facility] Work Phone: Creatinine [Mass/Vol] 0.87 mg/dL See Below [facility] Work Phone: Comment on above: Reference Range: 0.5 0 - 1.30 Glucose [Mass/Vol] 89 mg/dL 74 - 99 [facility] Work Phone: Potassium [Moles/Vol] 4.3 mmol/L 3.5 - 5.3 [facility] Work Phone: Protein [Mass/Vol] 7.3 g/dL 6.4 - 8.2 [facility] Work Phone: Sodium [Moles/Vol] 138 mmol/L 136 - 145 [facility] Work Phone: Urea nitrogen [Mass/Vol] 14 mg/dL 6 - 23 [facility] Work Phone: Otheron 11-06-2019 Albumin BCP dye [Mass/Vol] 4.4 g/dL 3.4 - 5.0 [facility] Work Phone: ALT With P-5'-P [Catalytic activity/Vol] 11 U/L 10 - 52 [facility] Work Phone: Comment on above: Patients treated wit h Sulfasalazine may generate falsely decreased results for ALT. AST With P-5'-P [Catalytic activity/Vol] 17 U/L 9 - 39 [facility] Work Phone: >60 >60 [facility] Work Phone: Comment on above: CALCULATIONS OF LUZMARIA MATED GFR ARE PERFORMED USING THE MDRD STUDY EQUATION FOR THE IDMS-TRACEABLE CREATININE METHODS. CLIN CHEM 2007;53:766-72 Culture, urine Bacteria identified Cx Nom (U) Mixed Gram Pos & Gram Neg Org [facility] Work Phone: Bacteria identified Cx Nom (U) Klebsiella pneumoniae sp pneum [facility] Work Phone: Vital Signs Date Time Vital Sign Value Performing Clinician Facility 09-13-2023 11:48-0400 Body height 175.3 cm Rebecca Buck MD Work Phone: [facility] 09-13-2023 11:48-0400 Body mass index (BMI) [Ratio] 25.84 kg/m2 Rebecca Buck MD Work Phone: [facility] 09-13-2023 11:48-0400 Body weight 79.38 kg Rebecca Buck MD Work Phone: [facility] 08-13-2023 09:56-0400 Body height 175.3 cm Rebecca Buck MD Work Phone: [facility] 08-13-2023 09:56-0400 Body mass index (BMI) [Ratio] 25.84 kg/m2 Rebecca Buck MD Work Phone: [employer] 08-13-2023 09:56-0400 Body weight 79.38 kg Rebecca Buck MD Work Phone: [facility] [employer] 03-02-2022 18:49-0400 Body temperature 98.01 [degF] aLnette Munguia DO Work Phone: [employer] 03-02-2022 18:49-0400 Diastolic blood pressure 72 mm[Hg] Lanette Munguia DO Work Phone: [employer] 03-02-2022 18:49-0400 Heart rate 94 /min Lanette Munguia DO Work Phone: [employer] 03-02-2022 18:49-0400 Respiratory rate 18 /min Lanette Munguia DO Work Phone: [employer] 03-02-2022 18:49-0400 SaO2% (BldA) [Mass fraction] 98 % Lanette Munguia DO Work Phone: [employer] 03-02-2022 18:49-0400 Systolic blood pressure 104 mm[Hg] Lanette Munguia DO Work Phone: [employer] 03-02-2022 11:55-0400 Body height 175.3 cm Lanette Munguia DO Work Phone: [employer] 03-02-2022 11:55-0400 Body mass index (BMI) [Ratio] 25.84 kg/m2 Lanette Munguia DO Work Phone: [employer] 03-02-2022 11:55-0400 Body weight 79.38 kg Lanette Munguia DO Work Phone: [employer] 12-22-2021 02:08-0400 Diastolic blood pressure 67 mm[Hg] Sharon Olivia MD Work Phone: [employer] 12-22-2021 02:08-0400 Heart rate 77 /min Sharon Olivia MD Work Phone: [employer] 12-22-2021 02:08-0400 Respiratory rate 16 /min Sharon Olivia MD Work Phone: [facility] 12-22-2021 02:08-0400 SaO2% (BldA) [Mass fraction] 96 % Sharon Olivia MD Work Phone: [facility] 12-22-2021 02:08-0400 Systolic blood pressure 108 mm[Hg] Sharon Olivia MD Work Phone: [facility] 12-21-2021 23:52-0400 Body height 175.3 cm Sharon Olivia MD Work Phone: [facility] 12-21-2021 23:52-0400 Body mass index (BMI) [Ratio] 25.84 kg/m2 Sharon Olivia MD Work Phone: [facility] 12-21-2021 23:52-0400 Body temperature 97.9 [degF] Sharon Olivia MD Work Phone: [facility] 12-21-2021 23:52-0400 Body weight 79.38 kg Sharon Olivia MD Work Phone: [facility] 11-01-2021 08:41-0400 Diastolic blood pressure 77 mm[Hg] Dante Kim MD Work Phone: [facility] 11-01-2021 08:41-0400 Heart rate 75 /min Dante Kim MD Work Phone: [facility] 11-01-2021 08:41-0400 Respiratory rate 16 /min Dante Kim MD Work Phone: [facility] 11-01-2021 08:41-0400 SaO2% (BldA) [Mass fraction] 97 % Dante Kim MD Work Phone: [facility] 11-01-2021 08:41-0400 Systolic blood pressure 112 mm[Hg] Dante Kim MD Work Phone: [facility] 10-31-2021 19:13-0400 Body height 177.8 cm Dante Kim MD Work Phone: [facility] 10-31-2021 19:13-0400 Body mass index (BMI) [Ratio] 27.26 kg/m2 Dante Kim MD Work Phone: [facility] 10-31-2021 19:13-0400 Body temperature 98.49 [degF] Dante Kim MD Work Phone: [facility] 10-31-2021 19:13-0400 Body weight 86.18 kg Dante Kim MD Work Phone: [facility] 10-29-2021 07:38-0400 Body temperature 97.81 [degF] Lisa Miguel Angel DO Work Phone: [facility] 10-29-2021 07:38-0400 Diastolic blood pressure 79 mm[Hg] Lisa Miguel Angel DO Work Phone: [facility] 10-29-2021 07:38-0400 Heart rate 80 /min Lisa Miguel Angel DO Work Phone: [facility] 10-29-2021 07:38-0400 Respiratory rate 18 /min Lisa Miguel Angel DO Work Phone: [facility] 10-29-2021 07:38-0400 SaO2% (BldA) [Mass fraction] 96 % Lisa Miguel Angel DO Work Phone: [facility] 10-29-2021 07:38-0400 Systolic blood pressure 123 mm[Hg] Lisa Miguel Angel DO Work Phone: [facility] 10-25-2021 13:55-0400 Body height 170.2 cm Lisa Miguel Angel DO Work Phone: [facility] 10-21-2021 00:57-0400 Body mass index (BMI) [Ratio] 37.58 kg/m2 Lisa Miguel Angel DO Work Phone: [facility] 10-21-2021 00:57-0400 Body weight 108.86 kg Lisa Miguel Angel DO Work Phone: [facility] 07-13-2020 13:21-0500 BMI (Body Mass Index) 40.47 kg/m2 Shiela Luís [facility] Work Phone: 07-13-2020 13:21-0500 Body Temperature 98 [degF] Monika Eliasrt [facility] Work Phone: [...] Work Phone: 04-13-2020 15:33-0500 Height 175.26 cm Wingblayne Harrison [facility] Work Phone: 04-13-2020 15:33-0500 Pulse (Heart Rate) 98 /min Wing Ritter [facility] Physician [facility] Work Phone: 04-13-2020 15:33-0500 Pulse Oximetry 98 % Wing Ritter [facility] Work Phone: Comment on above: Source: 04-13-2020 15:33-0500 0 1 Wing Ritter [facility] Work Phone: Comment on above: Pain Scale 01-20-2020 16:39-0400 Body height 175.26 cm Monika Staley MD [facility] [place] Work Phone: 01-20-2020 16:39-0400 Body mass index (BMI) [Ratio] 39.28 kg/m2 Monika Staley MD VG-Lephhzngur-Zuv [facility] [address] [place] Work Phone: 01-20-2020 16:39-0400 Body surface area Derived from formula 2.33 m2 Monika Staley MD FO-Jggdggzuvz-Dht [facility] [address] [place] Work Phone: 01-20-2020 16:39-0400 Body weight 120.66 kg Monika Staley MD [facility] [place] Work Phone: 01-20-2020 16:39-0400 Diastolic blood pressure 84 mm[Hg] Monika Staley MD KD-Vcgxcklzyb-Fbo r[facility] [address] [place] Work Phone: Comment on above: Location: [facility]; Position: Sitting 01-20-2020 16:39-0400 Heart rate 80 /min Monika Staley MD [facility] [place] Work Phone: 01-20-2020 16:39-0400 SaO2% (BldA) [Mass fraction] 100 % Monika Staley MD, [facility] [place] Work Phone: Comment on above: Source: 01-20-2020 16:39-0400 Systolic blood pressure 144 mm[Hg] Monika Staley MD FE-Cfhbzpmcdy-Lqv russ [address] [place] Work Phone: Comment on above: Location: [facility]; Position: Sitting 11-06-2019 15:29-0400 BMI (Body [...] Date Encounter Type Care Provider Facility [facility]: [facility] Start: 12-29-2024 ambulatory Carlos Cavazos OLS Faci lity:[facility] Start: [facility]24 [facility] Start: [facility]24 [facility] Start: 12-24-2024 ambulatory Carlos Katkameron OLS Faci lity:[facility] Start: 12-22-2024 ambulatory Mahaveer Mukka flash OLS Facility:[facility] Start: 12-18-2024 ambulatory Mahaveer Mukka flash OLS Facility:[facility] Start: 12-15-2024 ambulatory Mahaveer Mukka flash OLS Facility:[facility] Start: 12-11-2024 ambulatory Peter Katsaros OLS Faci lity:[facility] Start: 12-08-2024 ambulatory Mahaveer Mukka flash OLS Facility:[facility] Start: 12-04-2024 ambulatory Mahaveer Mukka flash OLS Facility:[facility] Start: 12-02-2024 ambulatory Mahaveer Mukka flash OLS Facility:[facility] Start: 12-01-2024 ambulatory Carlos Katsaros OLS Faci lity:[facility] Start: 11-28-2024 ambulatory Peter Katsaros OLS Faci lity:[facility] Start: 11-27-2024 ambulatory Mahaveer Mukka flash OLS Facility:[facility] Start: 11-24-2024 ambulatory Mahaveer Mukka flash OLS Facility:[facility] Start: 11-20-2024 ambulatory Mahaveer Mukka flash OLS Facility:[facility] Start: 11-17-2024 ambulatory Mahaveer Mukka flash OLS Facility:[facility] Start: 11-13-2024 ambulatory Mahaveer Mukka flash OLS Facility:[facility] Start: 11-10-2024 ambulatory Mahaveer Mukka flash OLS Facility:[facility] Start: 11-06-2024 ambulatory Mahaveer Mukka flash OLS Facility:[facility] Start: 11-03-2024 ambulatory Peter Katsaros OLS Faci lity:[facility] Start: 10-30-2024 ambulatory Mahaveer Mukka flash OLS Facility:[facility] Start: 10-30-2024 Registered Referred Karon Mcclain [facility] [employer] Start: 10-27-2024 ambulatory Mahaveer Mukka flash OLS Facility:[facility] Start: 10-27-2024 Registered Referred Karon Mcclain [facility] [employer] Start: 10-23-2024 ambulatory Mahaveer Mukka flash OLS Facility:[facility] Start: 10-23-2024 Registered [facility] Start: 10-20-2024 ambulatory [facility] OLS Facility:[facility] Start: 10-20-2024 Registered Referred Karon casillas MD [facility] Start: 10-16-2024 ambulatory [facility] OLS Facility:[facility] Start: 10-16-2024 Registered Referred [facility] Start: 10-13-2024 ambulatory Carlos NOVAK Faci lity:[facility] Start: 10-13-2024 Registered Referred Carlos Cavazos - [facility] Start: 10-09-2024 ambulatory [facility] OLS Facility:[facility] Start: 10-09-2024 Registered Referred [facility] Start: 10-06-2024 ambulatory Carlos NOVAK Faci lity:[facility] Start: 10-06-2024 Registered Referred Carlos Cavazos - [facility] Start: 10-02-2024 [facility] Facility:[facility] Start: 10-02-2024 Registered Referred [facility] [employer] [facility] Start: 09-30-2024 End: 09-30-[address] Monika Staley MD Work Phone: [facility] Work Phone: Start: 09-30-2024 End: 09-30-2024 Departed Ref[facility] Start: 09-30-2024 Registered Referred [facility] Start: 09-30-2024 End: 09-30-2024 ambulatory Carlavilmanoe Hernandezelismingshellie OLS Facility:[facility] Start: 09-25-2024 ambulatory [facility] OLS Facility:[facility] Start: 09-25-2024 Registered Referred Karon casillas MD -[facility] Start: 09-22-2024 End: 09-22-[address] Monika Staley MD Work Phone: -[facility] Start: 09-22-2024 End: 09-22-2024 Departed Referred Karon Corrales MD -[facility] Start: 09-22-2024 Registered Referred Karon casillas MD -[facility] Start: 09-22-2024 End: 09-22-2024 ambulatory Karon inga OLS Facility:[facility] Start: 09-18-2024 End: 09-18-[address] Monika Staley MD Work Phone: [facility] [employer] Start: 09-18-2024 End: 09-18-2024 Departed Referred Karon Corrales MD -[facility] Start: 09-18-2024 Registered Referred Karon casillas MD -[facility] Start: 09-18-2024 End: 09-18-2024 ambulatory Karon Corrales OLS Facility:[facility] Start: 09-15-2024 End: 09-15-[address] Monika Staley MD Work Phone: [facility] Work Phone: Start: 09-15-2024 End: 09-15-2024 Departed Referred Carlos Cavazos [facility] Start: 09-15-2024 Registered Referred Carlos Cavazos - [facility] Start: 09-15-2024 End: 09-15-2024 ambulatory Carlos Cavazos OLS Facility:[facility] Start: 09-11-2024 ambulatory Karon jack vidales OLS Facility:[facility] Start: 09-11-2024 Registered Referred Karon casillas MD -[facility] Start: 09-08-2024 End: 09-08-[address] Monika Staley MD Work Phone: [facility] Work Phone: Start: 09-08-2024 End: 09-08-2024 Departed Referred Karon Corrales MD -[facility] Start: 09-08-2024 Registered Referred Karon casillas MD -[facility] Start: 09-08-2024 End: 09-08-2024 ambulatory Karon NOVAK Facility:[facility] Start: 09-04-2024 End: 09-04-2024 Departed Referred Carlos Cavazos -[facility] Start: 09-04-2024 Registered Referred Carlos Cavazos - [facility] Start: 09-04-2024 End: 09-04-2024 ambulatory Carlos NOVAK Facility:[facility] Start: 09-01-2024 End: 09-01-[address] Monika Staley MD Work Phone: [facility] Work Phone: Start: 09-01-2024 End: 09-01-2024 Departed Referred Carlos Cavazos [facility] [employer] Start: 09-01-2024 Registered Referred Carlos Cavazos - [facility] [employer] Start: 09-01-2024 End: 09-01-2024 ambulatory Carlos NOVAK Facility:[facility] Start: 08-28-2024 End: 08-28-[address] Monika Staley MD Work Phone: [facility] Work Phone: Start: 08-28-2024 End: 08-28-2024 Departed Referred Carlos Cavazos [facility] Start: 08-28-2024 Registered Referred Carlos Cavazos - [facility] Start: 08-28-2024 End: 08-28-2024 ambulatory Carlos NOVAK Facility:[facility] Start: 08-25-2024 End: 08-25-[address] Monika Staley MD Work Phone: [facility] Work Phone: Start: 08-25-2024 End: 08-25-2024 Departed Referred Karon Corrales MD -[facility] [employer] Start: 08-25-2024 Registered Referred Karon casillas MD -[facility] [employer] Start: 08-25-2024 End: 08-25-2024 ambulatory Karon Farmera OLS Facility:[facility] Start: 08-21-2024 End: 08-21-[address] Monika Staley MD Work Phone: [facility] Work Phone: Start: 08-21-2024 End: 08-21-2024 Departed Referred Karon Corrales MD -[facility] [employer] Start: 08-21-2024 Registered Referred Karon casillas MD -[facility] [employer] Start: 08-21-2024 End: 08-21-2024 ambulatory Carlaamber Davidinga OLS Facility:[facility] Start: 08-18-2024 End: 08-18-[address] Monika Staley MD Work Phone: [facility] Work Phone: Start: 08-18-2024 End: 08-18-2024 Departed Referred Karon Corrales MD -[facility] [employer] Start: 08-18-2024 Registered Referred Karon casillas MD -[facility] [employer] Start: 08-18-2024 End: 08-18-2024 ambulatory Karon Davidinga OLS Facility:[facility] Start: 08-14-2024 End: 08-14-[address] Monika Staley MD Work Phone: [facility] Work Phone: Start: 08-14-2024 End: 08-14-2024 Departed Referred Karon Corrales MD -[facility] [employer] Start: 08-14-2024 Registered Referred Karon casillas MD -[facility] Start: 08-14-2024 End: 08-14-2024 ambulatory Karon NOVAK Facility:[facility] Start: 08-11-2024 End: 08-11-2024 Departed Referred Karon Corrales MD -[facility] Start: 08-11-2024 Registered Referred Karon casillas MD -[facility] [employer] Start: 08-11-2024 End: 08-11-2024 ambulatory Karon NOVAK Facility:[facility] Start: 08-07-2024 End: 08-07-2024 Departed Referred Carlos Cavazos -[facility] Start: 08-07-2024 Registered Referred Carlos Cavazos - [facility] [employer] Start: 08-07-2024 End: 08-07-2024 ambulatory Carlos NOVAK Facility:[facility] Start: 08-04-2024 End: 08-04-[address] Monika Staley MD Work Phone: [facility] Work Phone: Start: 08-04-2024 End: 08-04-2024 Departed Referred Carlos Cavazos [facility] Start: 08-04-2024 Registered Referred Carlos Cavazos - [facility] [employer] Start: 08-04-2024 End: 08-04-2024 ambulatory Carlos NOVAK Facility:[facility] Start: 07-31-2024 End: 07-31-[address] Monika Staley MD Work Phone: [facility] Work Phone: Start: 07-31-2024 End: 07-31-2024 Departed Referred Karon Corrales MD -[facility] [employer] Start: 07-31-2024 Registered Referred Karon casillas MD -[facility] [employer] Start: 07-31-2024 End: 07-31-2024 ambulatory Karon NOVAK Facility:[facility] Start: 07-28-2024 End: 07-28-[address] Monika Staley MD Work Phone: [facility] Work Phone: Start: 07-28-2024 End: 07-28-2024 Departed Referred Karon Corrales MD -[facility] [facility] Start: 07-28-2024 Registered Referred Karon casillas MD -[facility] Start: 07-28-2024 End: 07-28-2024 ambulatory Karon NOVAK Facility:[facility] Start: 07-25-2024 End: 07-25-[address] Monika Staley MD Work Phone: [facility] Work Phone: Start: 07-25-2024 End: 07-25-2024 Departed Referred Carlos Cavazos [facility] Start: 07-25-2024 Registered Referred Carlos Cavazos - [facility] Start: 07-24-2024 End: 07-25-[address] Monika Staley MD Work Phone: [facility] Work Phone: Start: 07-24-2024 End: 07-24-2024 Departed Referred Karon Corrales MD [facility] Start: 07-24-2024 Registered Referred Karon casillas MD -[facility] [employer] Start: 07-24-2024 End: 07-24-2024 ambulatory Karon NOVAK Facility:[facility] Start: 07-21-2024 End: 07-21-[address] Monika Staley MD Work Phone: [facility] Work Phone: Start: 07-21-2024 End: 07-21-2024 Departed Referred Karon Corrales MD -[facility] [employer] Start: 07-21-2024 Registered Referred Karon casillas MD -[facility] Start: 07-21-2024 End: 07-21-2024 ambulatory Karon NOVAK Facility:[facility] Start: 07-17-2024 End: 07-17-[address] Monika Staley MD Work Phone: [facility] Work Phone: Start: 07-17-2024 End: 07-17-2024 Departed Referred Karon Corrales MD -[facility] [facility] Start: 07-17-2024 Registered Referred Karon casillas MD -[facility] [employer] Start: 07-17-2024 End: 07-17-2024 ambulatory Karon NOVAK Facility:[facility] Start: 07-14-2024 End: 07-14-[address] Monika Staley MD Work Phone: [facility] Work Phone: Start: 07-14-2024 End: 07-14-2024 Departed Referred Carlos Cavazos [facility] [employer] Start: 07-14-2024 Registered Referred Carlos Cavazos - [facility] [employer] Start: 07-14-2024 End: 07-14-2024 ambulatory Carlos Cavazos OLS Facility:[facility] Start: 07-11-2024 End: 07-11-[address] Monika Staley MD Work Phone: [facility] Work Phone: Start: 07-11-2024 End: 07-11-2024 Departed Referred Carlos Cavazos [facility] [employer] Start: 07-11-2024 Registered Referred Carlos Cavazos - [facility] [employer] Start: 07-11-2024 End: 07-11-2024 ambulatory Carlos NOVAK Facility:[facility] Start: 07-07-2024 End: 07-07-[address] Monika Staley MD Work Phone: [facility] Work Phone: Start: 07-07-2024 End: 07-07-2024 Departed Referred Karon Corrales MD -[facility] [employer] Start: 07-07-2024 [facility] Start: 07-07-2024 End: 07-07-2024 ambulatory Karon NOVAK Facility:[facility] Start: 07-03-2024 End: 07-03-[address] Monika Staley MD Work Phone: [facility] Work Phone: Start: 07-03-2024 End: 07-03-2024 Departed Referred Kvng Crisostomo MD -[facility] [employer] Start: 07-03-2024 Registered Referred Kvng Crisostomo MD -[facility] Start: 07-03-2024 End: 07-03-2024 ambulatory Kvng NOVAK Facility:[facility] Start: 06-30-2024 End: 06-30-[address] Monika Staley MD Work Phone: [facility] Work Phone: Start: 06-30-2024 End: 06-30-2024 Departed Referred Kvng Crisostomo MD -[facility] [employer] Start: 06-30-2024 Registered Referred Kvng Crisostomo MD -[facility] [employer] Start: 06-30-2024 End: 06-30-2024 ambulatory Kvng NOVAK Facility:[facility] Start: 06-26-2024 ambulatory Kvng NOVAK Fac ility:[facility] Start: 06-26-2024 Registered Referred Kvng Crisostomo MD -[facility] [employer] Start: 06-23-2024 End: 06-23-[address] Monika Staley MD Work Phone: [facility] Work Phone: Start: 06-23-2024 End: 06-23-2024 Departed Referred Carlos Cavazos -[facility] [employer] Start: 06-23-2024 Registered Referred Carlos Maribelkameron - [facility] Start: 06-23-2024 End: 06-23-2024 ambulatory Carlos Maribelkameron OLS Facility:[facility] Start: 06-19-2024 End: 06-19-[address] Monika Staley MD Work Phone: [facility] Work Phone: Start: 06-19-2024 End: 06-19-2024 Departed Referred Kvng Crisostomo MD [facility] [employer] Start: 06-19-2024 Registered Referred Kvng Crisostomo MD -[facility] [employer] Start: 06-19-2024 End: 06-19-2024 ambulatory Kvng NOVAK Facility:[facility] Start: 06-16-2024 End: 06-16-[address] Monika Staley MD Work Phone: [facility] Work Phone: Start: 06-16-2024 End: 06-16-2024 Departed Referred Kvng Crisostomo MD -[facility] [employer] Start: 06-16-2024 Registered Referred Kvng Crisostomo MD -[facility] [employer] Start: 06-16-2024 End: 06-16-2024 ambulatory Kvng NOVAK Facility:[facility] Start: 06-12-2024 End: 06-12-[address] Monika Staley MD Work Phone: [facility] Work Phone: Start: 06-12-2024 End: 06-12-2024 Departed Referred Kvng Crisostomo MD [facility] [employer] Start: 06-12-2024 Registered Referred Kvng Crisostomo MD [facility] [employer] Start: 06-12-2024 End: 06-12-2024 ambulatory Kvng NOVAK Facility:[facility] Start: 06-09-2024 End: 06-09-[address] Monika Staley MD Work Phone: [facility] Work Phone: Start: 06-09-2024 End: 06-09-2024 Departed Referred Carlos Cavazos [facility] Start: 06-09-2024 Registered Referred Carlos Cavazos - [facility] [employer] Start: 06-09-2024 End: 06-09-2024 ambulatory Carlos NOVAK Facility:[facility] Start: 06-05-2024 End: 06-05-[address] Monika Staley MD Work Phone: [facility] Work Phone: Start: 06-05-2024 End: 06-05-2024 Departed Referred Kvng Crisostomo MD -[facility] [employer] Start: 06-05-2024 End: 06-05-2024 ambulatory Kvng NOVAK Facility:[facility] Start: 06-02-2024 End: 06-02-[address] Monika Staley MD Work Phone: [facility] Work Phone: Start: 06-02-2024 End: 06-02-2024 Departed Referred Kvng Crisostomo MD -[facility] [employer] Start: 06-02-2024 Registered Referred Kvng Crisostomo MD -[facility] [employer] Start: 06-02-2024 End: 06-02-2024 ambulatory Kvng NOVAK Facility:[facility] Start: 05-29-2024 End: 05-29-[address] Monika Staley MD Work Phone: [facility] Work Phone: Start: 05-29-2024 End: 05-29-2024 Departed Referred Kvng Crisostomo MD -[facility] [facility] Start: 05-29-2024 Registered Referred Kvng Crisostomo MD -[facility] Start: 05-29-2024 End: 05-29-2024 ambulatory Kvng NOVAK Facility:[facility] Start: 05-26-2024 End: 05-26-[address] Monika Staley MD Work Phone: [facility] Work Phone: Start: 05-26-2024 End: 05-26-2024 Departed Referred Carlos Cavazos -[facility] Start: 05-26-2024 Registered Referred Carlos Cavazos - [facility] [employer] Start: 05-26-2024 End: 05-26-2024 ambulatory Carlos NOVAK Facility:[facility] Start: 05-22-2024 ambulatory Kvng NOVAK Fac ility:[facility] Start: 05-22-2024 Registered Referred Kvng Crisostomo MD -[facility] Start: 05-20-2024 End: 05-20-2024 Departed Referred Kvng Crisostomo MD -[facility] Start: 05-19-2024 End: 05-20-2024 ambulatory Kvng NOVAK Facility:[facility] Start: 05-19-2024 Registered Referred Kvng Crisostomo MD -[facility] Start: 05-15-2024 End: 05-15-2024 Departed Referred Kvng Crisostomo MD -[facility] [facility] Start: 05-15-2024 End: 05-15-2024 ambulatory Kvng NOVAK Facility:[facility] Start: 05-12-2024 End: 05-12-2024 Departed [facility] Start: 05-12-2024 End: 05-12-2024 ambulatory Carlos NOVAK Facility:[facility] Start: 05-09-2024 End: 05-09-2024 Departed Referred Kvng Crisostomo MD -[facility] [employer] Start: 05-09-2024 End: 05-09-2024 ambulatory Kvng NOVAK Facility:[facility] Start: 05-08-2024 End: 05-08-2024 Departed Referred Kvng Crisostomo MD -[facility] [employer] Start: 05-08-2024 End: 05-08-2024 ambulatory Kvng NOVAK Facility:[facility] Start: 05-05-2024 End: 05-05-2024 Departed Referred Kvng Crisostomo MD -[facility] [employer] Start: 05-05-2024 End: 05-05-2024 ambulatory Kvng NOVAK Facility:[facility] Start: 05-01-2024 End: 05-01-2024 Departed Referred Kvng Crisostomo MD -[facility] [employer] Start: 05-01-2024 End: 05-01-2024 ambulatory Kvng NOVAK Facility:[facility] Start: 04-28-2024 End: 04-28-2024 Departed Referred Carlos Cavazos -[facility] [employer] Start: 04-28-2024 End: 04-28-2024 ambulatory Carlos NOVAK Facility:[facility] Start: 04-24-2024 End: 04-24-2024 Departed Referred Kvng Crisostomo MD -[facility] [employer] Start: 04-24-2024 End: 04-24-2024 ambulatory Kvng NOVAK Facility:[facility] Start: 04-21-2024 End: 04-21-2024 Departed Referred Carlos Cavazos [facility] Start: 04-21-2024 End: 04-21-2024 ambulatory Carlos NOVAK Facility:[facility] Start: 04-17-2024 ambulatory Vicenterocio Andressa NOVAK Fac ility:[facility] Start: 04-17-2024 Registered Referred Kvng Crisostomo MD -[facility] [employer] Start: 04-14-2024 ambulatory Kvng NOVAK Fac ility:[facility] Start: 04-14-2024 Registered Referred Kvng Crisostomo MD -[facility] [facility] Start: 04-10-2024 End: 04-10-2024 Departed Referred Kvng Crisostomo MD -[facility] Start: 04-10-2024 End: 04-10-2024 ambulatory Kvng NOVAK Facility:[facility] Start: 04-07-2024 End: 04-07-2024 Departed Referred Carlos Cavazos [facility] Start: 04-07-2024 End: 04-07-2024 ambulatory Carlos NOVAK Facility:[facility] Start: 04-04-2024 ambulatory Kvng NOVAK Fac ility:[facility] Start: 04-04-2024 Registered Referred Kvng Crisostomo MD -[facility] Start: 03-31-2024 End: 03-31-2024 Departed Referred Carlos Cavazos [facility] Start: 03-31-2024 End: 03-31-2024 ambulatory Shiela Luís Facility:[facility] Start: 03-27-2024 End: 03-27-2024 Departed Referred [facility] [employer] [facility] Start: 03-27-2024 End: 03-27-20[facility] Start: 03-24-2024 End: 03-24-2024 Departed Referred Kvng Crisostomo MD -[facility] Start: 03-24-2024 End: 03-24-2024 ambulatory Kvng NVOAK Facility:[facility] Start: 03-20-2024 End: 03-20-2024 Departed Referred [facility] [employer] [facility] Start: 03-20-2024 End: 03-20-2024 ambulatory Shiela Luís Facility:[facility] Start: 03-19-2024 End: 03-19-2024 Departed Referred Kvng Crisostomo MD -[facility] Start: 03-19-2024 End: 03-19-2024 ambulatory Kvng NOVAK Facility:[facility] Start: 03-18-2024 End: 03-18-2024 Departed Referred [facility] Start: 03-18-2024 End: 03-18-2024 ambulatory [facility] Facility[facility] Start: 03-17-2024 End: 03-17-2024 Departed Referred [facility] Start: 03-17-2024 End: 03-17-2024 ambulatory [facility] Facility[facility] Start: 03-14-2024 End: 03-14-2024 Departed Referred Carlos Maribelkameron -[facility] Start: 03-14-2024 End: 03-14-2024 ambulatory Carlos NOVAK Facility:[facility] Start: 03-13-2024 End: 03-13-2024 Departed Referred [facility] Start: 03-13-2024 End: 03-13-2024 ambulatory [facility] Facility[facility] Start: 03-10-2024 End: 03-10-2024 ambulatory [facility] Facility:[facility] Start: 03-06-2024 End: 03-06-2024 ambulatory [facility] Facility:[facility] Start: 03-03-2024 End: 03-03-2024 ambulatory [facility] Facility:[facility] Start: 02-28-2024 End: 02-28-2024 ambulatory [facility] Facility:[facility] Start: 02-25-2024 End: 02-25-2024 ambulatory Carlos NOVAK Facility:[facility] Start: 02-21-2024 End: 02-21-2024 ambulatory [facility] Facility:[facility] Start: 02-18-2024 End: 02-18-2024 ambulatory [facility] Facility:[facility] Start: 02-14-2024 End: 02-14-2024 ambulatory [facility] Facility:[facility] Start: 02-12-2024 End: 02-12-2024 ambulatory Carlos NOVAK Facility:[facility] Start: 02-11-2024 End: 02-11-2024 ambulatory [facility] Facility:[facility] Start: 02-08-2024 End: 02-08-2024 ambulatory Carlos Katsaros OLS Facility:[facility] Start: 02-07-2024 End: 02-07-2024 ambulatory Carlos Maribelsaros OLS Facility:[facility] Start: 02-04-2024 End: 02-04-2024 ambulatory Carlos Katsaros OLS Facility:[facility] Start: 02-01-2024 ambulatory Carlos Maribelsaros OLS Faci lity:[facility] Start: 01-30-2024 End: 01-30-2024 ambulatory Carlos Lópezsaros OLS Facility:[facility] Start: 01-29-2024 End: 01-29-2024 ambulatory [facility] Facility:[facility] Start: 01-21-2024 End: 01-21-2024 ambulatory Carlos Maribelsaros OLS Facility:[facility] Start: 01-14-2024 End: 01-14-2024 ambulatory Carlos Maribelsaros OLS Facility:[facility] Start: 01-11-2024 ambulatory Carlos Lópezsaros OLS Faci lity:[facility] Start: 01-10-2024 End: 01-10-2024 ambulatory [facility] Facility:[facility] Start: 01-08-2024 End: 01-08-2024 ambulatory Carlos Lópezsaros OLS Facility:[facility] Start: 09-13-2023 End: 09-13-2023 ambulatory REBECCA [facility] Start: 09-13-2023 End: 09-13-2023 Office outpatient visit 25 minutes Rebecca Buck MD Work Phone: [facility] U[facility] Comment on above: Left flank pain (Christina magui Dx); BPH with urinary obstruction; History of kidney stones Start: 09-06-2023 End: 09-07-2023 ambulatory REBECCA [facility] Start: 09-06-2023 End: 09-06-2023 Subsequent hospital visit by physician Rebecca Buck MD Work Phone: [facility] CT Imaging Comment on above: Left flank pain; Calculus of ureter Start: 08-31-2023 ambulatory Eloise Stern RN [facility] Clinical Communication Start: 08-31-2023 Patient encounter procedure Eloise Jarred [facility] Start: 08-21-2023 Telephone encounter Rebecca Buck MD Work Phone: [facility] Clinical Communication Comment on above: CT appt Boaz advice Start: 08-21-2023 Registered [facility] Start: 08-13-2023 End: 08-13-2023 ambulatory [facility] Start: 08-13-2023 End: 08-13-2023 Office outpatient new 45 minutes Rebecca Buck MD Work Phone: [facility] U[facility] Comment on above: Left flank pain (Christina magui Dx); Calculus of ureter; Disease of prostate; BPH with urinary obstruction Start: 08-03-2023 End: 08-03-2023 ambulatory [facility] Work Phone: Start: 08-03-2023 End: 08-03-2023 [facility] Start: 07-20-2023 End: 07-20-2023 ambulatory [facility] Work Phone: Start: 07-20-2023 End: 07-20-2023 Departed Referred [facility] Start: 07-20-2023 Registered [facility] Start: 07-18-2023 End: 07-18-2023 ambulatory [facility] Work Phone: Start: 07-18-2023 End: 07-18-2023 Departed Referred [facility] Start: 07-18-2023 Registered [facility] Start: 07-16-2023 End: 07-16-2023 ambulatory [facility] Work Phone: Start: 07-16-2023 End: 07-16-2023 Departed Referred [facility] Start: 07-16-2023 Registered [facility] Start: 07-13-2023 End: 07-13-2023 ambulatory [facility] Work Phone: Start: 07-13-2023 End: 07-13-2023 [facility] Start: 07-13-2023 [facility] Start: 07-12-2023 End: 07-12-2023 ambulatory [facility] Work Phone: Start: 07-12-2023 End: 07-12-2023 [facility] Start: 07-12-2023 [facility] Start: 07-05-2023 End: 07-05-2023 ambulatory [facility] Work Phone: Start: 07-05-2023 End: 07-05-2023 [facility] Start: 07-05-2023 [facility] Start: 07-02-2023 [facility] Start: 06-28-2023 End: 06-28-2023 ambulatory [facility] Work Phone: Start: 06-28-2023 End: 06-28-2023 [facility] Start: 06-28-2023 [facility] Start: 06-25-2023 Telephone encounter Rebecca Buck MD Work Phone: [facility] Start: 06-25-2023 End: 06-25-2023 ambulatory [facility] Work Phone: Start: 06-25-2023 End: 06-25-2023 [facility] Start: 06-25-2023 [facility] Start: 06-21-2023 End: 06-21-2023 ambulatory [facility] Work Phone: Start: 06-21-2023 End: 06-21-2023 [facility] Start: 06-21-2023 [facility] Start: 06-13-2023 End: 06-13-2023 ambulatory [facility] Work Phone: Start: 06-13-2023 End: 06-13-2023 [facility] Start: 06-06-2023 End: 06-06-2023 ambulatory [facility] Work Phone: Start: 06-06-2023 End: 06-06-2023 [facility] Start: 06-06-2023 [facility] Start: 05-23-2023 End: 05-23-2023 ambulatory [facility] Work Phone: Start: 05-23-2023 End: 05-23-2023 [facility] Start: 05-09-2023 End: 05-09-2023 [facility] Start: 05-09-2023 [facility] Start: 04-23-2023 End: 04-23-2023 [facility]ed [facility] Start: 04-09-2023 End: 04-09-2023 ambulatory [facility] Work Phone: Start: 04-09-2023 End: 04-09-2023 [facility]ed [facility] Start: 04-09-2023 [facility] Start: 04-02-2023 End: 04-02-2023 ambulatory [facility] Work Phone: Start: 04-02-2023 End: 04-02-2023 Departed [facility]erred [facility] Start: 04-02-2023 Registered [facility] Start: 03-26-2023 End: 03-26-2023 ambulatory [facility] Work Phone: Start: 03-26-2023 End: 03-26-2023 [facility]ed [facility] Start: 03-26-2023 [facility] Start: 03-22-2023 End: 03-22-2023 ambulatory [facility] Work Phone: Start: 03-22-2023 End: 03-22-2023 [facility]ed [facility] Start: 03-22-2023 [facility] Start: 03-08-2023 End: 03-08-2023 ambulatory [facility] Work Phone: Start: 03-08-2023 End: 03-08-2023 [facility]ed [facility] Start: 02-22-2023 End: 02-22-2023 ambulatory [facility] Work Phone: Start: 02-22-2023 End: 02-22-2023 [facility]ed [facility] Start: 02-22-2023 [facility] Start: 02-15-2023 End: 02-15-2023 ambulatory [facility] Work Phone: Start: 02-15-2023 End: 02-15-2023 [facility] Start: 02-15-2023 [facility] Start: 02-08-2023 End: 02-08-2023 ambulatory [facility] Work Phone: Start: 02-08-2023 End: 02-08-2023 [facility]ed [facility] Start: 01-31-2023 End: 01-31-2023 ambulatory [facility] Work Phone: Start: 01-31-2023 End: 01-31-2023 [facility] Start: 01-31-2023 [facility] Start: 01-29-2023 End: 01-29-2023 [facility]ed [facility] Start: 01-29-2023 Registered [facility] Start: 01-26-2023 End: 01-26-2023 [facility]ed [facility] Start: 01-26-2023 Registered [facility] Start: 01-24-2023 End: 01-24-2023 Departed [facility] Start: 01-24-2023 [facility]istered [facility] Start: 01-22-2023 End: 01-22-2023 ambulatory [facility] Work Phone: Start: 01-22-2023 End: 01-22-2023 [facility] Start: 01-22-2023 [facility] Start: 01-10-2023 End: 01-10-2023 ambulatory [facility] Work Phone: Start: 01-10-2023 End: 01-10-2023 [facility]ed [facility] Start: 01-10-2023 Reg[facility] Start: 12-27-2022 End: 12-27-2022 ambulatory [facility] Work Phone: Start: 12-27-2022 End: 12-27-2022 [facility]ed [facility] Start: 12-27-2022 Registered [facility] Start: 12-21-2022 End: 12-21-2022 ambulatory [facility] Work Phone: Start: 12-21-2022 End: 12-21-2022 Departed [facility] Start: 12-21-2022 Registered [facility] Start: 12-14-2022 End: 12-14-2022 ambulatory [facility] Work Phone: Start: 12-14-2022 End: 12-14-2022 [facility]ed [facility] Start: 12-14-2022 Registered [facility] Start: 12-07-2022 End: 12-07-2022 ambulatory [facility] Work Phone: Start: 12-07-2022 End: 12-07-2022 Departed [facility] Start: 12-07-2022 Registered [facility] Start: 11-24-2022 End: 11-24-2022 ambulatory [facility] Work Phone: Start: 11-24-2022 End: 11-24-2022 [facility]ed [facility] Start: 11-24-2022 Registered [facility] Start: 11-23-2022 End: 11-23-2022 ambulatory [facility] Work Phone: Start: 11-23-2022 End: 11-23-2022 [facility]ed [facility] Start: 11-23-2022 Registered [facility] Start: 11-22-2022 End: 11-22-2022 ambulatory [facility] Work Phone: Start: 11-22-2022 End: 11-22-2022 Departed [facility] Start: 11-22-2022 Registered Referred [facility] Start: 11-09-2022 End: 11-09-2022 ambulatory [facility] Work Phone: Start: 11-09-2022 End: 11-09-2022 Departed Referred [facility] Start: 11-09-2022 Registered Referred [facility] Start: 10-26-2022 End: 10-26-2022 Departed Referred [facility] Start: 10-26-2022 Registered [facility] Start: 10-12-2022 End: 10-12-2022 ambulatory [facility] Work Phone: Start: 10-12-2022 End: 10-12-2022 Departed [facility]erred [facility] Start: 10-12-2022 Registered Referred [facility] Start: 10-05-2022 End: 10-05-2022 Departed [facility]erred [facility] Start: 10-05-2022 Registered Referred [facility] Start: 09-28-2022 End: 09-28-2022 ambulatory [facility] Work Phone: Start: 09-28-2022 End: 09-28-2022 Departed [facility]erred [facility] Start: 09-14-2022 End: 09-14-2022 Departed [facility] Start: 08-31-2022 End: 08-31-2022 Departed [facility] Start: 08-31-2022 Registered Referred [facility] Start: 08-23-2022 End: 08-23-2022 ambulatory [facility] Work Phone: Start: 08-23-2022 End: 08-23-2022 Departed [facility] Start: 08-23-2022 [facility] Start: 08-17-2022 End: 08-17-2022 ambulatory [facility] Work Phone: Start: 08-17-2022 End: 08-17-2022 Departed [facility] Start: 08-17-2022 [facility]istered [facility] Start: 08-14-2022 End: 08-14-2022 ambulatory [facility] Work Phone: Start: 08-14-2022 End: 08-14-2022 [facility]ed [facility] Start: 08-14-2022 [facility] Start: 07-31-2022 End: 07-31-2022 ambulatory [facility] Work Phone: Start: 07-31-2022 End: 07-31-2022 Departed [facility]erred [facility] Start: 07-31-2022 Registered [facility] Start: 07-24-2022 End: 07-24-2022 ambulatory [facility] Work Phone: Start: 07-24-2022 End: 07-24-2022 Departed [facility]erred [facility] Start: 07-24-2022 [facility]istered [facility] Start: 07-20-2022 End: 07-20-2022 Departed [facility]erred [facility] Start: 07-20-2022 Registered Referred [facility] Start: 07-17-2022 End: 07-17-2022 Departed [facility]erred [facility] Start: 07-17-2022 [facility] Start: 07-11-2022 [facility] Start: 07-10-2022 End: 07-10-2022 ambulatory [facility] Work Phone: Start: 07-10-2022 End: 07-10-2022 [facility] Start: 07-10-2022 [facility] Start: 07-03-2022 End: 07-03-2022 ambulatory [facility] Work Phone: Start: 07-03-2022 End: 07-03-2022 [facility] Start: 07-03-2022 Registered [facility] Start: 06-27-2022 End: 06-27-2022 ambulatory [facility] Work Phone: Start: 06-27-2022 End: 06-27-2022 [facility] Start: 06-27-2022 [facility] Start: 06-13-2022 End: 06-13-2022 ambulatory [facility] Work Phone: Start: 06-13-2022 End: 06-13-2022 [facility]ed [facility] Start: 06-13-2022 [facility] Start: 06-06-2022 End: 06-06-2022 ambulatory [facility] Work Phone: Start: 06-06-2022 End: 06-06-2022 [facility]arted [facility] Start: 06-06-2022 [facility] Start: 05-30-2022 End: 05-30-2022 ambulatory [facility] Work Phone: Start: 05-30-2022 End: 05-30-2022 Departed [facility]erred [facility] Start: 05-30-2022 Registered [facility] Start: 05-16-2022 End: 05-16-2022 ambulatory [facility] Work Phone: Start: 05-16-2022 End: 05-16-2022 Departed Referred [facility] Start: 05-16-2022 [facility] Start: 05-02-2022 End: 05-02-2022 ambulatory [facility] Work Phone: Start: 05-02-2022 End: 05-02-2022 [facility] Start: 05-02-2022 [facility] Start: 04-27-2022 End: 04-27-2022 ambulatory [facility] Work Phone: Start: 04-27-2022 End: 04-27-2022 [facility] Start: 04-27-2022 Registered [facility] Start: 04-26-2022 End: 04-26-2022 ambulatory [facility] Work Phone: Start: 04-26-2022 End: 04-26-2022 Departed Referred [facility] Start: 04-11-2022 End: 04-11-2022 ambulatory [facility] Work Phone: Start: 04-11-2022 End: 04-11-2022 Departed [facility]erred [facility] Start: 03-28-2022 End: 03-28-2022 Departed Referred [facility] Start: 03-28-2022 Registered Ref[facility] Start: 03-23-2022 End: 03-23-[address] [facility] [employer] Start: 03-23-2022 [facility] [facility] Start: 03-16-2022 End: 03-16-2022 ambulatory [facility] Work Phone: Start: 03-16-2022 End: 03-16-2022 Departed Referred [facility] Start: 03-16-2022 Registered [facility] [employer] [facility] Start: 03-09-2022 End: 03-09-2022 ambulatory [facility] Work Phone: Start: 03-09-2022 End: 03-09-2022 Departed Referred [facility] Start: 03-09-2022 Registered Referred [facility] Start: 03-06-2022 End: 03-06-2022 ambulatory [facility] Work Phone: Start: 03-06-2022 End: 03-06-2022 Departed Referred [facility] Start: 03-06-2022 Registered Referred [facility] Start: 03-02-2022 End: 03-03-2022 Emergency department patient visit UNKNOWN [facility] Start: 03-02-2022 End: 03-02-2022 Emergency department patient visit Lanette Charli JIMENEZ Work Phone: [facility] Emergency Dept Comment on above: Fall, initial encoun ter (Primary Dx); Anticoagulated Start: 02-20-2022 End: 02-20-2022 [facility]ed [facility] Start: 02-20-2022 [facility] Start: 02-13-2022 End: 02-13-2022 ambulatory [facility] Work Phone: Start: 02-13-2022 End: 02-13-2022 Departed Referred [facility] Start: 02-13-2022 Registered Referred [facility] Start: 02-06-2022 End: 02-06-2022 ambulatory [facility] Work Phone: Start: 02-06-2022 End: 02-06-2022 Departed Referred [facility] Start: 02-06-2022 Registered Referred [facility] Start: 01-30-2022 End: 01-30-2022 Departed Referred [facility] Start: 01-30-2022 Registered Referred [facility] Start: 01-26-2022 End: 01-26-2022 ambulatory [facility] Work Phone: Start: 01-26-2022 End: 01-26-2022 Departed Referred [facility] Start: 01-26-2022 Registered Referred [facility] Start: 01-19-2022 End: 01-19-2022 ambulatory [facility] Work Phone: Start: 01-19-2022 End: 01-19-2022 Departed Referred [facility] Start: 01-19-2022 Registered Referred [facility] Start: 01-17-2022 ambulatory [facility] Start: 01-10-2022 ambulatory [facility] Start: 01-10-2022 End: 01-10-2022 ambulatory [facility] Work Phone: Start: 01-10-2022 End: 01-10-2022 Departed Referred [facility] Start: 01-10-2022 Registered Referred [facility] Start: 01-06-2022 AUDIT Monika Elias rt Work Phone: [facility] Work Phone: Start: 01-05-2022 End: 01-05-2022 Departed Referred [facility] Start: 01-05-2022 [facility]istered [facility] Start: 12-30-2021 End: 12-30-2021 [facility] Start: 12-30-2021 [facility] Start: 12-28-2021 End: 12-28-2021 ambulatory [facility] Work Phone: Start: 12-28-2021 End: 12-28-2021 Departed Referred [facility] [employer] Start: 12-28-2021 Registered Referred [facility] Start: 12-26-2021 End: 12-26-2021 ambulatory [facility] Work Phone: Start: 12-26-2021 End: 12-26-2021 Departed Referred [facility] Start: 12-26-2021 Registered Referred [facility] Start: 12-22-2021 End: 12-22-2021 ambulatory [facility] Work Phone: Start: 12-22-2021 End: 12-22-2021 Departed [facility] Start: 12-22-2021 Registered Referred [facility] Start: 12-22-2021 End: 12-22-2021 [facility] Start: 12-21-2021 End: 12-22-2021 Emergency department patient visit Sharon Olivia MD Work Phone: [facility] Emergency Dept Comment on above: Heel ulceration, lef t, with unspecified severity (HCC) (Primary Dx) Start: 12-19-2021 End: 12-19-2021 ambulatory [facility] Work Phone: Start: 12-19-2021 End: 12-19-2021 [facility] Start: 12-19-2021 [facility] Start: 12-12-2021 End: 12-12-2021 ambulatory [facility] Work Phone: Start: 12-12-2021 End: 12-12-2021 [facility] Start: 12-12-2021 [facility] Start: 12-08-2021 End: 12-08-2021 ambulatory [facility] Work Phone: Start: 12-08-2021 End: 12-08-2021 [facility] Start: 12-08-2021 [facility] Start: 12-05-2021 End: 12-05-2021 ambulatory [facility] Work Phone: Start: 12-05-2021 End: 12-05-2021 Departed Referred [facility] [facility] Start: 12-05-2021 [facility] Start: 12-01-2021 End: 12-01-2021 [facility] Start: 12-01-2021 [facility] Start: 11-28-2021 End: 11-28-2021 [facility] Start: 11-28-2021 [facility] Start: 11-25-2021 Rx Renewal Monika Elias rt Work Phone: CR-Hnbzcjjb[facility]-Ntyef Work Phone: Start: 11-23-2021 End: 11-23-2021 [facility] Start: 11-23-2021 [facility] Start: 11-22-2021 End: 11-22-2021 Departed Referred [facility] [employer] [employer] Start: 11-22-2021 Registered Referred [facility] Start: 11-21-2021 End: 11-21-2021 Departed Referred [facility] Start: 11-15-2021 AUDIT Monika Elias rt Work Phone: HY-Qbeircydmp-Prqbu Work Phone: Start: 11-14-2021 End: 11-14-2021 Departed [facility] Start: 11-14-2021 Registered Referred [facility] [employer] [employer] Start: 11-08-2021 End: 11-08-2021 Departed Referred [facility] [employer] [employer] Start: 11-08-2021 Registered [facility] Start: 11-04-2021 End: 11-04-2021 Departed Referred [facility] [employer] Start: 11-04-2021 Registered [facility] [employer] [employer] Start: 10-31-2021 End: 11-01-2021 Emergency department patient visit UNKNOWN PROVIDER [facility] Start: 10-31-2021 End: 11-01-2021 Emergency department patient visit Dante Kim MD Work Phone: [facility] Emergency Dept Comment on above: Other fatigue (Prima ry Dx) Start: 10-31-2021 End: 10-31-2021 Departed Referred [facility] [employer] Start: 10-21-2021 End: 10-29-2021 Evaluation and management of inpatient UNKNOWN PROVIDER [facility] Start: 10-21-2021 End: 10-29-2021 Evaluation and management of inpatient Lisa Michelle Work Phone: [facility] Comment on above: Leg swelling (Primar y Dx); Acute deep vein thrombosis (DVT) of proximal vein of lower extremity, unspecified laterality (HCC) Start: 10-20-2021 End: 10-20-2021 Departed [facility] Start: 10-17-2021 Telephone encounter Nicole davis MD Work Phone: [facility] Comment on above: Missed Appointment Start: 09-19-2021 End: 09-19-2021 Departed [facility] Start: 11-02-2020 AUDIT Monika Elias rt Work Phone: [facility] Work Phone: Start: 10-27-2020 AUDIT Monika Elias rt Work Phone: [facility] Work Phone: Start: 07-13-2020 Patient encounter procedure Monika Staley [facility] Work Phone: Start: 04-13-2020 Patient encounter procedure Wing Ritter [facility] Work Phone: Start: 04-07-2020 Patient encounter procedure Wing Ritter [facility] Work Phone: Start: 03-18-2020 Patient encounter procedure Wing Ritter [facility] Work Phone: Start: 01-20-2020 Patient [...] visit by physician Sarika Salas Work Phone: [facility] Clinic Procedures Date Procedure Procedure Detail [...] ecg w/le ast 12 lds w/i&r Myron uDran MD Work Phone: Start: 10-31-2021 Basic metabolic [...] Start: 10-26-2021 Electroencephalogram w/rec awake&asleep Sarina Pineda [employer] Work Phone: Start: 10-26-2021 Ct head/brain w/o co ntrast material Sarina Pineda [employer] Work Phone: Start: 10-26-2021 Prothrombin time Andres Sheridan MD Work Phone: Start: 10-25-2021 Speech and language therapy regime Sarina Pineda [employer] Work Phone: Start: 10-25-2021 Prothrombin time Andres [...] 10-21-2021 Blood count reticulo cyte automated Ellen Massey Niesha [employer] Work Phone: Start: 10-21-2021 C-reactive protein Doloresua juan c Massey Niesha [employer] Work Phone: Start: 10-21-2021 Non-invas physiologi c std extremity art 2 level Shruthi Malik [employer] Work Phone: Start: 10-21-2021 Radex calcaneus mini mum 2 views Shruthi Malik [employer] Work Phone: Start: 10-21-2021 Dup-scan xtr veins [...] Comment: Speci men Type: BLOOD SPECIMENOrdering Facility: [facility] Address: [address] [place] [address] Performed By: #### T SCR ####[facility] BLOOD BANKCLIA [id number] [address] Start: 08-04-2021 Antibody screen Comment on above: Order Comment: Speci men Type: BLOOD SPECIMENOrdering Facility: [facility] Address: [address] [place] [address] Performed By: #### T SCR ####[facility] BLOOD BANKCLIA [id number] [address] Start: 08-01-2021 Antibody screen Comment on above: Order Comment: Speci men Type: BLOOD SPECIMENOrdering Facility: [facility] Address: [address] [place] [address] Performed By: #### T SCR ####[facility] BLOOD BANKCLIA [id number] [address] Start: 06-07-2021 Antibody screen Comment on above: Order Comment: Speci men Type: BLOOD SPECIMEN Performed By: #### T SCR ####[facility] BLOOD BANKCLIA [id number] [address] Start: 09-02-2020 Lipid 1996 panel - [...] Inferior Vena Cava Maury Filter Placement Monika Horner Luís Urine culture Plan of Treatment Date Care Activity Detail Author Start: 09-22-2026 DTaP/Tdap/Td vaccine (2 - Td or Tdap) DTaP/Tdap/Td vaccine (2 - Td or Tdap) [facility] Start: 09-22-2026 DTaP/Tdap/Td vaccine (2 - Td) DTaP/Tdap/Td vaccine (2 - Td) [facility] Work Phone: Start: 09-22-2026 DTaP/Tdap/Td Vaccine s (2 - Td or Tdap) DTaP/Tdap/Td Vaccines (2 - Td or Tdap) [facility] Start: 09-02-2025 Lipid panel Lipid Panel [facility] Start: 08-22-2024 DIABETES SCREEN DIABETES SCREEN [facility] Start: 12-04-[address] [facility] Start: 12-04-[address] Lipid screen [facility] Work Phone: Start: 09-13-2023 End: 09-13-2023 Patient encounter procedure 09/13/2023 11:30 AM EDT Office Visit [facility] [address] [phone] Rebecca Buck MD [address] [facility] [address] [place] [address] [facility] Start: 08-31-2023 End: 08-31-2023 Patient encounter procedure 08/31/2023 9:30 AM EDT Appointment [facility] [address] [place] [phone] Rebecca Buck MD [address] [address] [facility] Imaging Start: 08-13-2023 End: 08-12-2024 Basic metabolic 1998 panel - Serum or Plasma Basic metabolic panel Lab Routine Calculus of ureter Expected: 08/13/2023 (Approximate), Expires: 08/12/2024 [facility] Comment on above: Expected: 08/13/2023 (Approximate), Expires: 08/12/2024 Start: 08-13-2023 End: 08-12-2024 CT Abdomen WO contrast CT abdomen pelvis wo IV contrast Imaging Routine Left flank pain Calculus of ureter Expected: 08/13/2023, Expires: 08/12/2024 [facility] Comment on above: Expected: 08/13/2023 , Expires: 08/12/2024 Start: 08-13-2023 End: 02-12-2024 PSA, Monitoring ([facility]) PSA, Monitoring ([facility]) Lab Routine Disease of prostate Expected: 08/13/2023 (Approximate), Expires: 02/12/2024 [facility] Work Phone: Comment on above: Expected: 08/13/2023 (Approximate), Expires: 02/12/2024 Start: 08-13-2023 End: 08-13-2023 Patient encounter procedure 08/13/2023 10:00 AM EDT Office Visit [facility] [address] [place] [phone] Rebecca Buck MD [address] [place] [address] [facility] Start: 07-17-2023 Bacteria identified in Urine by Culture [facility] Start: 07-17-2023 [facility] Start: 07-16-2023 Measurement of substance [facility] Start: 05-07-2023 Medicare Advantage A nnual Wellness Visit Medicare Advantage Annual Wellness Visit [facility] Start: 03-02-2023 Creatinine measurement Creatinine Le carmela [facility] Start: 03-02-2023 Potassium measurement Potassium Leve l [facility] Start: 08-22-2022 Diabetes mellitus screening Diabetes Screening [facility] Start: 01-05-2022 Influenza vaccination [facility] Start: 12-23-2021 EPV, Provider: Wing Ritter, Status: Pen, Time: 9:30 AM EPV, Provider: Wing Ritter, Status: Pen, Time: 9:30 AM [facility]-Adghtnhlzr-MdpDwight alexandre Work Phone: Start: 12-05-2021 Influenza vaccination Flu vaccine (# 1) [facility] Start: 12-05-2021 Blood chemistry [facility] Work Phone: Start: 12-05-2021 Complete blood count [facility] Work Phone: Start: 12-05-2021 [facility] Work Phone: Start: 12-01-2021 [facility] Work Phone: Start: 08-05-2021 COVID-19 VACCINE (4 - Booster for Moderna series) COVID-19 VACCINE (4 - Booster for Moderna series) [facility] Start: 08-05-2021 COVID-19 Vaccine (4 - Booster for Pfizer series) COVID-19 Vaccine (4 - Booster for Pfizer series) [facility] Start: 06-01-2021 COVID-19 Vaccine (4 - Booster for Pfizer series) COVID-19 Vaccine (4 - Booster for Pfizer series) [facility] Start: 05-07-2021 ADVANCE DIRECTIVE DISCUSSION ADVANCE DIRECTIVE DISCUSSION [facility] Start: 08-11-2020 Screening for malign ant neoplasm of colon [facility] Start: 07-30-2020 Screening for malign ant neoplasm of colon [facility] Start: 01-20-2020 Echocardiography Echocardiogram MP-C ardi[facility]-Med [facility] [address] [place] Work Phone: Start: 01-06-2020 Influenza vaccination INFLUENZA (#1) [facility] Start: 12-04-2019 Annual Wellness Visi t (AWV) Annual Wellness Visit (AWV) [facility] Start: 12-04-2019 Creatinine monitoring Creatinine mon itoring [facility] Work Phone: Start: 12-04-2019 Hepatitis C screen Hepatitis C scree n [facility] Work Phone: Comment on above: Postponed from 05/06 (Patient Refused) Start: 12-04-2019 Potassium monitoring Potassium monit oring [facility] Work Phone: Start: 12-04-2019 Prostate specific an tigen measurement Prostate Specific Antigen (PSA) Screening or [facility] Start: 12-04-2019 Shingles Vaccine (1 of 2) Day gles Vaccine (1 of 2) [facility] Work Phone: Comment on above: Postponed from 05/06 (Patient Refused) Start: 06-07-2019 Colon Cancer Screen FIT/FOBT [facility] Work Phone: Start: 08-14-2017 LIPID SCREEN LIPID SCREEN [facility] Start: 2017 ADVANCE DIRECTIVE DISCUSSION ADVANCE DIRECTIVE DISCUSSION [facility] Start: 2017 PNEUMOCOCCAL: 65+ (1 - PCV) PNEUMOCOCCAL: 65+ (1 - PCV) [facility] Start: 2017 PNEUMOVAX AGE 65 AND OVER WITH 5YR LOOKBACK (#1) PNEUMOVAX AGE 65 AND OVER WITH 5YR LOOKBACK (#1) [facility] Start: 04-14-2016 DIABETES SCREEN DIABETES SCREEN [facility] Start: 2012 RSV Immunization age d 60 or older (1 - 1-dose 60+ series) RSV Immunization aged 60 or older (1 - 1-dose 60+ series) [facility] Start: 2007 PROSTATE CANCER SCRE ENING DISCUSSION PROSTATE CANCER SCREENING DISCUSSION [facility] Start: 2002 Shingles vaccine (1 of 2) Day gles vaccine (1 of 2) [facility] Start: 2002 SHINGRIX VACCINE (1 of 2) DAY GRIX VACCINE (1 of 2) [facility] Start: 2002 Tuberculosis screening COLOREC MONIQUE CANCER SCREENING,SEE MODIFIER [facility] Start: 2002 Zoster Vaccines (1 of 2) Zoste r Vaccines (1 of 2) [facility] Start: 1997 COLOGUARD (FIT-DNA) COLOGUARD (FIT-D NA) [facility] Start: 1997 Colonoscopy COLONOSCOPY [facility] Start: 1997 COLORECTAL CANCER SCREENING COLORECTAL CANCER SCREENING [facility] Start: [address] COLONOGRAPHY [facility] Start: 1997 FECAL OCCULT BLOOD FECAL OCCULT BLOO D [facility] Start: 1997 Screening for malign ant neoplasm of colon [facility] Start: 1997 SIGMOIDOSCOPY SIGMOIDOSCOPY [facility] Start: 1987 Diabetes screen Diabetes screen [facility] Start: 1971 Urine microalbumin profile DTAP,TDAP,TD (1 - Tdap) [facility] Start: 1970 ANNUAL PCP TEAM 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 Start: 1962 Diabetic foot examination Diabetes: Foot Exam [facility] Start: 1962 Glaucoma screening Diabetes: R etinopathy Screening [facility] Start: 1962 Preventive dental service Diabetes: Dental Exam [facility] Start: 1952 Echocardiography Echocardiogram [facility] Start: 1952 Hemoglobin A1c measurement Diabetes: Hemoglobin A1C [facility] Start: 1952 Lipid panel Lipid Panel [facility] Start: 1952 Screening for malign ant neoplasm of colon [facility] Bacteria identified in Urine by Culture Urine Culture [facility] Work Phone: End: 03-02-2022 CBC W Auto Differential panel - Blood CBC with Auto Differential Lab Routine One Time for 1 Occurrences starting 03/02/2022 until 03/02/2022 [facility] Work Phone: Comment on above: One Time for 1 Occur rences starting 03/02/2022 until 03/02/2022 End: 03-02-2022 Comprehensive metabolic 2000 panel - Serum or Plasma Comprehensive Metabolic Panel Lab STAT One Time for 1 Occurrences starting 03/02/2022 until 03/02/2022 [facility] Work Phone: Comment on above: One Time for 1 Occur rences starting 03/02/2022 until 03/02/2022 End: 09-06-2023 CT [facility] Work Phone: Comment on above: Once for [...] for 1 Occurrences starting 12/22/2021 until 12/22/2021 [facility] Work Phone: Comment on above: One Time for 1 Occur rences starting 12/22/2021 until 12/22/2021 Microscopic examinat ion of blood, culture Culture, Blood Microbiology STAT 12/22/2021 12:22 AM EDT [facility] Work Phone: Oxygen therapy [[facility] Data Set] Initiate Oxygen Therapy Protocol Respiratory Care Routine As Needed until discontinued starting 10/21/2021 [facility] Comment on above: As Needed until disc ontinued starting 10/21/2021 Protime-INR Protime-INR Lab Routine Daily until discontinued starting 10/23/2021, 7 completed [facility] Work Phone: Comment on above: Daily until disconti nued starting 10/23/2021, 7 completed End: 03-02-2022 Protime-INR Protime-INR Lab Routine One Time for 1 Occurrences starting 03/02/2022 until 03/02/2022 [facility] Work Phone: Comment on above: One Time for 1 Occur rences starting 03/02/2022 until 03/02/2022 Spirometry panel Incentive stef metry Respiratory Care Routine Daily until discontinued starting 10/21/2021 [facility] Work Phone: Comment on above: Daily until disconti nued starting 10/21/2021 End: 10-21-2021 Wound ostomy eval Wound ostomy eval Wound Ostomy Routine One Time for 1 Occurrences starting 10/21/2021 until 10/21/2021 [facility] Work Phone: Comment on above: One Time for 1 Occur rences starting 10/21/2021 until 10/21/2021 [facility] NEGATED: Highlighted row has been ruled out! Planned Goals not documented [facility] Work Phone: Immunizations Immunization Date Immunization Notes [...] Phone: Payers Date Payer Category Payer Unknown [id number] 01-08-2024 Self-pay 01-05-2022 Medicaid 01-05-2022 Medicare 01-05-2022 Medicare [id number] 10-05-2021 Medicaid [id number] 06-07-2021 Medicare UHC MEDICARE UHC DUAL COMPLETE HMO SNP [id number] 06/07/2021-Present [phone] [address] [place] [address] Medicare [id number] 06-07-2021 Medicare UHC MEDICARE [employer] DUAL COMPLETE [id number] 06/07/2021-Present [phone] [address] [place] [address] [id number] 11-05-2019 Medicare UHC AAR MEDICAR E UHC AARP MEDICARE HMO [id number] 11/05/2019-Present [id number] [id number] 07-06-2015 Medicare UHC MEDICARE UHC MEDICARE COMPLETE xxxxxxxxx 2015-Present xxxxxxxxx [id number]. [id number] 1952 Unknown [id number] 2.16840.1.531466.3.579. 2.668 1952 Unknown [id number] 2.840.1.710002.3.579. 2.668 1952 Unknown [id number] 2.16840.1.851326.3.579. 2.668 1952 Unknown [id number] 2.16840.1.604380.3.579. 2.668 1952 Unknown [id number] 2.16840.1.713941.3.579. 2.668 1952 Unknown [id number] 2.16840.1.283505.3.579. 2.668 1952 Unknown [id number] 2.16.840.1.666245.3.579. 2.668 Private Health Insurance Unknown Unknown [id number] 2.16.840.1.432482.3.579. 2.462 Unknown [id number] 2.16840.1.827805.3.579. 2.462 Unknown [id number] 2.16.840.1.035633.3.579. 2.462 Unknown [id number] 2.16.840.1.702452.3.579. 2.462 Unknown [id number] 2.16.840.1.957941.3.579. 2.462 Unknown [id number] 2.16.840.1.285047.3.579. 2.462 Unknown [id number] 2.16.840.1.468502.3.579. 2.462 Unknown [id number] 2.16.840.1.630981.3.579. 2.462 Unknown [id number] 2.16.840.1.768189.3.579. 2.462 Unknown [id number] 2.16.840.1.309173.3.579. 2.462 Unknown [id number] 2.16.840.1.411286.3.579. 2.462 Unknown [id number] 2.16.840.1.982017.3.579. 2.462 Unknown [id number] 2.16840.1.637919.3.579. 2.462 Unknown [id number] 2.16.840.1.644035.3.579. 2.462 Unknown [id number] 2.16.840.1.483433.3.579. 2.462 Unknown [id number] 2.16.840.1.115549.3.579. 2.462 Unknown [id number] 2.16840.1.355178.3.579. 2.462 Unknown [id number] 2.16840.1.556393.3.579. 2.462 Unknown [id number] 2.16.840.1.763143.3.579. 2.462 Unknown [id number] 2.16.840.1.262292.3.579. 2.462 Unknown [id number] 2.16.840.1.853928.3.579. 2.462 Unknown [id number] 2.16.840.1.381448.3.579. 2.462 Unknown [id number] 2.16.840.1.090160.3.579. 2.462 Unknown [id number] 2.16.840.1.344804.3.579. 2.462 Unknown [id number] 2.16.840.1.935480.3.579. 2.462 Unknown [id number] 2.16.840.1.382002.3.579. 2.462 Unknown [id number] 2.16.840.1.130896.3.579. 2.462 Unknown [id number] 2..840.1.746611.3.579. 2.462 Unknown [id number] 2.840.1.065539.3.579. 2.462 Unknown [id number] 2.840.1.680354.3.579. 2.462 Unknown [id number] 2.840.1.669639.3.579. 2.462 Unknown [id number] 2.840.1.058951.3.579. 2.462 Unknown [id number] 2.840.1.936660.3.579. 2.462 Unknown [id number] 2..840.1.887264.3.579. 2.462 Unknown [id number] .840.1.811841.3.579. 2.462 Unknown [id number] 2.840.1.072113.3.579. 2.462 Unknown [id number] .840.1.080183.3.579. 2.462 Unknown [id number] 2.840.1.517006.3.579. 2.462 Unknown [id number] 2.16840.1.153881.3.579. 2.462 Unknown [id number] 2.16.840.1.740378.3.579. 2.462 Unknown [id number] 2.840.1.453000.3.579. 2.462 Unknown [id number] 2.16.840.1.273964.3.579. 2.462 Unknown [id number] 2.16.840.1.380993.3.579. 2.462 Unknown [id number] 2.16.840.1.965978.3.579. 2.462 Unknown [id number] 2.16.840.1.778821.3.579. 2.462 Unknown [id number] 2.16.840.1.468551.3.579. 2.462 Unknown [id number] 2.16.840.1.798605.3.579. 2.462 Unknown [id number] 2.16.840.1.056080.3.579. 2.462 Unknown [id number] 2..840.1.225099.3.579. 2.462 Unknown [id number] 2.16840.1.398425.3.579. 2.462 Unknown [id number] 2.16.840.1.327703.3.579. 2.462 Unknown [id number] 2..840.1.132402.3.579. 2.462 Unknown [id number] 2.16.840.1.300745.3.579. 2.462 Unknown [id number] 2.16.840.1.253393.3.579. 2.462 Unknown [id number] 2.16.840.1.372152.3.579. 2.462 Unknown [id number] 2.16.840.1.147790.3.579. 2.462 Unknown [id number] 2.16.840.1.511751.3.579. 2.462 Unknown [id number] 2.16.840.1.632505.3.579. 2.462 Unknown [id number] 2.16.840.1.462162.3.579. 2.462 Unknown [id number] 2.16.840.1.260188.3.579. 2.462 Unknown [id number] 2.16.840.1.680673.3.579. 2.462 Unknown [id number] 2.16.840.1.290231.3.579. 2.462 Unknown [id number] 2.16.840.1.198902.3.579. 2.462 Unknown [id number] 2.16.840.1.986562.3.579. 2.462 Unknown [id number] 2.16.840.1.086803.3.579. 2.462 Unknown [id number] 2.16.840.1.411366.3.579. 2.462 Unknown [id number] 2.16.840.1.327164.3.579. 2.462 Unknown [id number] 2.16.840.1.770279.3.579. 2.462 Unknown [id number] 2.16.840.1.903102.3.579. 2.462 Unknown [id number] 2.16.840.1.200702.3.579. 2.462 Unknown [id number] 2.16.840.1.731291.3.579. 2.462 Unknown [id number] 2.16.840.1.886397.3.579. 2.462 Unknown [id number] 2.16.840.1.547913.3.579. 2.462 Unknown [id number] 2.16.840.1.258254.3.579. 2.462 Unknown [id number] 2.16.840.1.004019.3.579. 2.462 Unknown [id number] 2.16.840.1.286873.3.579. 2.462 Unknown [id number] 2.16.840.1.255977.3.579. 2.462 Unknown [id number] 2.16.840.1.293131.3.579. 2.462 Unknown [id number] 2.16.840.1.389353.3.579. 2.462 Unknown [id number] 2.16.840.1.628177.3.579. 2.462 Unknown [id number] 2.16.840.1.666360.3.579. 2.462 Unknown 96486666 2.16.840.1.432307.3.579. 2.462 Unknown [id number] 2.16.840.1.211373.3.579. 2.462 Unknown [id number] 2.840.1.468240.3.579. 2.462 Unknown [id number] 2.840.1.801028.3.579. 2.462 Unknown [id number] 2.840.1.617794.3.579. 2.462 Unknown [id number] 2.840.1.430055.3.579. 2.462 Unknown [id number] 2.840.1.943839.3.579. 2.462 Unknown 10976513 2.840.1.084228.3.579. 2.462 Unknown [id number] 2.840.1.010728.3.579. 2.462 Unknown [id number] 2.840.1.193966.3.579. 2.462 Unknown [id number] 2.840.1.930578.3.579. 2.462 Unknown [id number] 2.840.1.686593.3.579. 2.462 Unknown [id number] 2.16840.1.631824.3.579. 2.462 Unknown [id number] 2.16840.1.641631.3.579. 2.462 Unknown [id number] 2.16.840.1.868677.3.579. 2.462 Unknown [id number] 2.16.840.1.408434.3.579. 2.462 Unknown [id number] 2.16.840.1.501752.3.579. 2.462 Unknown [id number] 2.16.840.1.483690.3.579. 2.462 Unknown [id number] 2.16.840.1.738900.3.579. 2.462 Unknown [id number] 2.16.840.1.408501.3.579. 2.462 Unknown [id number] 2.16.840.1.336258.3.579. 2.462 Unknown [id number] 2.16.840.1.786573.3.579. 2.462 Unknown [id number] 2.16.840.1.114644.3.579. 2.462 Unknown [id number] 2.16.840.1.540488.3.579. 2.462 Unknown [id number] 2.16840.1.999249.3.579. 2.462 Unknown [id number] 2.16840.1.734448.3.579. 2.462 Unknown [id number] 2.16.840.1.260949.3.579. 2.462 Unknown [id number] 2.16.840.1.491837.3.579. 2.462 Unknown [id number] 2.16.840.1.892718.3.579. 2.462 Unknown [id number] 2.16.840.1.871500.3.579. 2.462 Unknown [id number] 2.16.840.1.732766.3.579. 2.462 Unknown [id number] 2.16.840.1.208435.3.579. 2.462 Unknown [id number] 2.16.840.1.713611.3.579. 2.462 Unknown [id number] Unknown [id number] Social History Date Type Detail Facility Start: 05-23-2018 End: 05-19-2019 Tobacco smoking status NHIS Former smoker [facility] Work Phone: History of tobacco use Cigar Smoker [facility] Work Phone: Start: 05-19-2019 End: 08-13-2023 Cigarettes smoked current (pack per day) - Reported [facility] Work Phone: Start: 05-19-2019 End: 08-13-2023 Alcohol intake Current non-drinker of alcohol (finding) [facility] Work Phone: Start: 12-03-2018 History SDOH Physica l Activity DPW 7 [employer] Work Phone: Start: 12-03-2018 History SDOH Physica l Activity MPS 9 [employer] Work Phone: Start: 12-03-2018 End: 10-31-2021 History SDOH Stress 1 [employer] Work Phone: Start: 12-03-2018 History SDOH Financial 5 [employer] Work Phone: Start: 12-03-2018 History SDOH Transpo rt Med 2 [employer] Work Phone: Start: 1950 Sex Assigned At Not on file [facility] [employer] Work Phone: Start: 08-13-2012 End: 11-13-2019 Tobacco smoking status KSIS Never smoker [facility] Start: 05-23-2018 End: 11-13-2019 Tobacco use and exposure Never used [facility] Start: 11-13-2019 History SDOH Alcohol Std Drinks 98 [facility] Start: 10-11-2021 End: 02-15-2022 Exposure to SARS-CoV-2 (event) Not sure [facility] Start: 1950 Sex Assigned At Male W [facility] History of tobacco use Current smoker [facility] Work Phone: History of tobacco use Cigarette Smoker [facility] Work Phone: Start: 10-31-2021 End: 08-13-2023 Tobacco use panel [facility] Tobacco smoking stat NHIS Unknown if ever smoked [facility] Work Phone: Start: 07-11-2024 End: 08-21-2024 Sex Male (finding) [facility] NEGATED: Highlighted row - - [facility] Work Phone: Medical Equipment Procedure Code Equipment Code Equipment Origin al Text Equipment Identifier Dates Kit Bactiseal Woodard maria guadalupe Silicone Barium Catheter Shunt Sterile - [id number] Start: 06-08-2021 Catheter Bactise al 14cm External Drainage Csf Sterile Latex Free - [id number] Start: 08-05-2021 Valve Certas Shannon nt Inline - [id number] Start: 06-08-2021 Valve Certas Shannon nt Inline - [id number] Start: 08-05-2021 Valve Certas Shannon nt Inline - [id number] Start: 08-09-2021 Goals Date Patient Goal [...] status health issues are not documented Disease [facility] Work Phone: Mental Status Date Assessment Result Facility NEGATED: Highlighted row Cognitive function [Interpretation] Cognitive status health issues are not documented Disease [facility] Work Phone: Clinical Notes 05-31-2021 [...] Hydrocephalus, adult (CMS/HCC) (HCC) Kidney stone 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 B: Onset [...] Protocols used: Information Only Call - No Xjeuzg-[id number] [facility] 08-31-2023 Telephone encounter Note S: Shanthi from [facility] spoke with [facility] nurse regarding voiding trial procedure. B: Onset of symptoms/concern today. A: [facility] is calling to make sure that the patient doesn't need to stand for the procedure as the patient can't. Patient using a boaz lift and would need to come by cot if so. Shanthi advised that the patient would need to come back cot if unable to stand to move from chair to exam table for procedure. R: [facility] will attempt to arrange for transportation for September 03 but might need to reschedule appointment if unable to obtain transportation. Reason for Disposition [1] Caller requesting NON-URGENT health information AND [2] PCP's office is the best resource Protocols used: Information Only Call - No [id number] [facility] 08-31-2023 Miscellaneous Notes S: Shanthi from [facility] spoke with [facility] nurse regarding voiding trial procedure. B: Onset of symptoms/concern today. A: [facility] is calling to make sure that the patient doesn't need to stand for the procedure as the patient can't. Patient using a boaz lift and would need to come by cot if so. Shanthi advised that the patient would need to come back cot if unable to stand to move from chair to exam table for procedure. R: [facility] will attempt to arrange for transportation for September 03 but might need to reschedule appointment if unable to obtain transportation. Reason for Disposition [1] Caller requesting NON-URGENT health information AND [2] PCP's office is the best resource Protocols used: Information Only Call - No [id number]-[id number] documented in this encounter [facility] 08-29-2023 Telephone encounter Note Lm on daughters vm to advise them to call the number for the marketing traffic manager to get clarification, and to call back with further questions [facility] 08-29-2023 Miscellaneous Notes Lm on daughters vm to advise them to call the number for the marketing traffic manager to get clarification, and to call back with further questions Yes, they will need to call the number given to them. Please advise Name of caller: Shanthi Contact phone number: [phone] Relationship to Patient: patient Provider: MD Quinn Practice: [facility] Chief Complaint/Reason for Call: Shanthi called [...] to reach out to call Maury Cedeño Home Mission Worker at [facility] [phone] to get clarifications. TEA did reach back out to [facility] and advised and provider Maury's #. Please advise Best time of day caller can be reached: Any Patient advised that office/PCP has 24-48 business hours to return their call: N/A documented in this encounter [facility] 08-27-2023 Telephone encounter Note Yes, they will need to call the number given to them. [facility] 08-27-2023 Telephone encounter Note Please advise [employer] 08-21-2023 Telephone encounter Note Name of caller: Shanthi Contact phone number: [phone] Relationship to Patient: patient Provider: MD Quinn Practice: [facility] Chief Complaint/Reason for Call: Shanthi called [...] to reach out to call Maury Cedeño Home Mission Worker at [facility] [phone] to get clarifications. CAC did reach back out to [facility] and advised and provider Maury's #. 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t scheduled 07/10/23 Brohman has to be made further out, pt being transported by cot. Changed appt to 08/13/23 per [facility] only avail time for transport, first avail with DR Buck at 10:00 AM. [facility] 06-25-[address] [facility] stating [facility]t scheduled 07/10/23 Brohman has to be made further out, pt being transported by cot. Changed appt to 08/13/23 per [facility] only avail time for transport, first avail with DR Buck at 10:00 AM. documented in this encounter [facility] 12-22-2021 Hospital Discharge instructions SANIA Lou - 12/22/2021 2:32 AM EDT Please take medication as prescribed Please follow up with your Physicians as instructed in this discharge paperwork Thank you for choosing [facility] I appreciate your patience Please return to the emergency department if your symptoms worsen, or new symptoms develop as discussed documented in this encounter [facility] Work Phone: 10-29-2021 Note Hospitalist Discharg [...] abnormality and previous indwelling tubing history of ROLL MACHINE OPERATOR shunt ? #?Bilateral lower extremity wounds-wound [...] neurologist. Patient will be transferred to the jail and his Coumadin was continued, dosing instructions were given. Wound care was given for his lower extremity wounds. Consults: neurology, vascular surgery, gastroenterology Discharge Instructions: Diet: No diet orders on file Activity: as tolerated Disposition: Patient discharged in stable condition to jail . Greater than 30 minutes spent discharging [...] Your Medications These medications were sent to [facility] [address] [place], [place] [address] [facility] - [phone] - [phone] [facility] [id number] ? levETIRAcetam 750 MG tablet ? warfarin 6 MG tablet Recommended Follow-up: No follow-up provider specified. Complexity of Follow up: [] Moderate Complexity: follow up within 7-14 calendar days (30203) [x] Severe Complexity: follow up within 7 calendar days (25202) Follow up Testing, Pending results or Referrals [...] Increased fatigue or (more content not included)... [facility] 10-29-2021 Hospital Discharge instructions Fabi Subramanian [...] Information Primary Emergency Contact: Triny Damon Address: [address] [place] [address] [place] [address] [facility] Relation: Brother/Sister Secondary Emergency Contact: Melissa Sifuentes Mobile Relation: Child Preferred language: Gibraltarian Past Surgical History: Past Surgical History: Procedure Laterality Date BRAIN SURGERY CHOLECYSTECTOMY COLONOSCOPY HERNIA REPAIR Immunization History: Immunization History Administered Date(s) Administered Influenza Virus Vaccine 02/08/2015 Influenza, High Dose (Fluzone 65 yrs and older) 01/25/2018, 03/04/2019 Influenza, Quadv, IM, (6 mo and older Fluzone, Flulaval, Fluarix and 3 yrs and older Afluria) 02/24/2016, 02/14/2017 Pneumococcal Conjugate 13-valent ([id number]) 09/22/2016 Pneumococcal Conjugate Vaccine 02/04/2013 Pneumococcal Polysaccharide ([id number]) 12/03/2018 Tdap (Boostrix, Adacel) 09/22/2016 Active Problems: [...] Dependent Dressing Dependent Toileting Dependent Feeding Dependent Body Work Auto Trimmer Dependent Med Delivery whole in [facility] Wound Care Documentation and Therapy: Wound [...] Q4H prn SOB Oxygen Therapy: {Therapy; copd oxygen:65072} Ventilator: { CC Vent List:[id number]} Rehab Therapies: {THERAPEUTIC INTERVENTION:[id number]} Weight Bearing Status/Restrictions: Weight Bearing - Patient was bedbound in hospital Other Medical Equipment (for information only, NOT a DME order): wheelchair, hospital bed, and Boaz Other Treatments: Patient's personal belongings (please select all that are sent with patient): {[facility] D[facility] Belongings:[id number]} RN SIGNATURE: CASE MANAGEMENT/SOCIAL WORK SECTION Inpatient Status Date: Readmission Risk Assessment Score: Readmission Risk Risk of Unplanned Readmission: 11 Discharging to Facility/ Agency Name: Address: Phone: Fax: Dialysis Facility (if applicable) Name: Address: Dialysis Schedule: Phone: Fax: Director Talent Acquisition/Maintenance Associate signature: {Esignature:[id number]} PHYSICIAN SECTION Prognosis: Fair Condition at Discharge: [...] the diagnosis listed and that he requires [facility] Facility for greater than 30 days. Update Admission H&P: No change in H&P PHYSICIAN SIGNATURE: documented in this encounter [facility] Work Phone: 10-29-2021 History of Present illness Narrative [facility] Anticoagulation Management Service ([facility]) Inpatient Warfarin Consult HPI: Andrew Sifuentes is a 71 y.o. 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 Past Medical History: Diagnosis Date ED (erectile dysfunction) Hemorrhoids Hydrocephalus, adult (HCC) Kidney stone Neuropathy ROLL MACHINE OPERATOR (ventriculoperitoneal) shunt status Patient is newly referred to the [facility] clinic for warfarin management. Pt was referred by Ellen Scherer, CAMILLA-VICTORIANO. Pt is on warfarin for DVT and [...] daily. 4. Will provide warfarin education including [facility] warfarin booklet, if appropriate. Vimal Oropeza [facility], PharmD [facility] Consult Service is available daily [phone]. Please search for covering pharmacist name via Mind Palette or Groups --> Pharmacy --> Anti-Coagulation Consult Pharmacist (on 3rd page). If no response via [employer], please page [phone]. Patient seen and chart reviewed. Afebrile. Adequate oxygenation on room air. Baseline mentation. Exam stable X 5 systems. Hgb 11.0 WBC 10.0 K Platelets 344 K Creatinine 0.71 GFR > 90 cc/min. NSE 20.8 with hemolysis. PT 30.8 INR 3.1 Conversion to Warfarin has been completed. APS w/u pending. Discussed with patient's staffing administrator. Will continue to monitor. Total visit time > 35 minutes. Neurology Attending Progress Note SUBJECTIVE: No issues overnight. Care discussed with nursing staff/patient's medical team MRI brain reported nothing acute. Assessment and Plan: 71 yr M with H obstructive hydrocephalus s/p ROLL MACHINE OPERATOR shunt in 1987, needing multiple revisions [...] normal limits and both old and new ROLL MACHINE OPERATOR shunt tubing noted. At present patient is awake, follows commands, was able to tell his name, and that he was in hospital but not oriented to time. Per documentation patient had NCSE in May 2021, was on Vimpat, but it was discontinued as there was no evidence of recurrent seizures in july 2021 by Neurology at [facility], per daughter patient was on Dilantin [...] normal limits and both old and new ROLL MACHINE OPERATOR shunt tubing noted -EEG mild to moderate slow, no seizures reported -Labs reviewed -Hydrocephalus management per Neurosurgery. At present patient does not have hydrocephalus on CT head done this admission. No Neurosurgery services available as inpatient in [facility]. Patient can follow up with Neurosurgery as outpatient and if ends up needing inpatient neurosurgery requirement then may need to be transferred to [facility]. -No clear clinical signs of ventriculitis. Defer evaluation to primary medical team/ID as deemed necessary. -Discussed with daughter in detail on . She was concerned that patient has had h/o seizures, and he has been taken off seizure medication, per note documentation patient had NCSE in May 2021 when he was admitted to [facility]. Per daughter she would want patient [...] is no in house Neurology coverage at [facility] over the weekend, primary hospitalist team to contact education manager Neurology at [facility] for any weekend neurological issues related to the patient and if need to discuss any neurological test results/findings. Other deal in house Neurology coverage will be available from Sunday at [facility] and please call education manager Neurology back on Sunday if need further assistance. This note has been generated using AMT dictation software. It may contain incorrect words, punctuation's and spellings that were not noted in the review of the note prior to signing. This note has been generated using AMT dictation software. It may contain incorrect words, [...] eGFR >90.0 >60 mL/min EGFR IF NonAfrican Finnish >90.0 >60 mL/min Calcium 9.1 8.4 - [...] 26 AST 24 BILITOT 0.4 LABALBU 3.7 @BRIEFLAB([facility]) ABGs: )No results for input(s): [...] VIEWS) Result Date: 10/21/2021 [id number] Radiology ACCESSION EXAM DATE/TIME PROCEDURE ORDERING PROVIDER [id number] 10/21/2021 15:30 EDT CR Calcaneus 2+ Views [id number] -SHRUTHI MALIK Left CPT code 62487 Reason For Exam (CR Calcaneus 2+ Views [...] Tomography ACCESSION EXAM DATE/TIME PROCEDURE ORDERING PROVIDER [id number] 10/26/2021 11:[address] Head or Brain w/o LOIS, ICE CREAM FREEZER, SARINA Contrast CPT code 29487 Reason For Exam (CT Head or Brain w/o Contrast) hydrocephalus. thank you Report CLINICAL INFORMATION: Hydrocephalus. Shunt. 3 mm axial cuts through the head are obtained without IV contrast. The examination is compared to a previous study dated 06/29/2014. FINDINGS: Old ROLL MACHINE OPERATOR shunt tubing is noted bilaterally. The [...] are clear. IMPRESSION: 1. Old and new ROLL MACHINE OPERATOR shunt tubing. 2. No hydrocephalus. 3. [...] Imaging ACCESSION EXAM DATE/TIME PROCEDURE ORDERING PROVIDER [id number] 10/23/2021 11:08 EDT MRI Abdomen w/o Contrast WING SRIVASTAVA CPT code 66324 Reason For Exam (MRI Abdomen w/o Contrast) [...] on --- Final --- Dictating Physician: MD HRODES VLADIMIR Signed Date and Time: 10/23/2021 4:35 pm Signed by: MD RHODES VLADIMIR Transcribed Date and Time: 10/23/2021 4:36 NM LUNG VENT/PERFUSION (VQ) Result Date: 10/21/2021 Patient Name: ANDREW SIFUENTES Nuclear Medicine ACCESSION EXAM DATE/TIME PROCEDURE ORDERING PROVIDER [id number] 10/21/2021 07:55 EDT NM Pulmonary Perfusion [id number] -MAY CASH w/ Vent Aerosol CPT code 59735 A9567 Reason For Exam (NM Pulmonary Perfusion [...] Brachial Indices Extremity Bilateral Result Date: 10/22/2021 [facility] --- Ankle Brachial Index Report Patient Gurpreet : 1950 Study 10/21/2021 Name: Andrew Gonzalez (71yrs) Date: Age: 71 Account: [id number] Gender: M Loc: 444W BP: Ordering Physician: Shruthi Malik Weld Lay Out Worker: Rody Cross RDMS, RVT Interpreting Physician: Carina Call --- Location: [facility] --- Indications: Foot wounds. Originally ordered as a full PVR. Ordering ICE CREAM FREEZER had to modify the order to ABIs [...] supine position. Images were obtained using a [employer] vascular ultrasound machine. --- Arterial pressure indices: [...] EXTREMITY BILATERAL VENOUS DUPLEX Result Date: 10/21/2021 [facility] --- Lower Extremity Venous Duplex Report Patient DO GurpreetB: 1950 Study 10/21/2021 Name: Andrew Gonzalez (71yrs) Date: Age: 71 Account: [id number] Gender: M Loc: 444 BP: Ordering Physician: May Cash Weld Lay Out Worker: Rody Cross RDMS, RVT Interpreting Physician: Carina Call --- Location: [facility] --- Indications: Bilateral lower leg edema. --- [...] supine position. Images were obtained using a [employer] vascular ultrasound machine. --- Venous flow and [...] Radiology ACCESSION EXAM DATE/TIME PROCEDURE ORDERING PROVIDER [id number] 10/21/2021 08:16 EDT CR Chest 1 View Frontal [id number] MAY BOGGS CPT code 15180 Reason For Exam (CR Chest 1 View [...] Tomography ACCESSION EXAM DATE/TIME PROCEDURE ORDERING PROVIDER [id number] 10/22/2021 13:[address] Abdomen/Pelvis (No SRIVASTAVA, WING PO, No IV) CPT code 35126 Reason For Exam (CT Abdomen/Pelvis (No PO, [...] Imaging ACCESSION EXAM DATE/TIME PROCEDURE ORDERING PROVIDER [id number] 10/27/2021 13:14 EDT MRI Brain w/o Contrast UNASSIGNED, UNASSIGNED CPT code 81979 Reason For Exam (MRI Brain w/o Contrast) stroke Patient has ROLL MACHINE OPERATOR shunt in place, please follow Radiology [...] included. Hospitalist Progress Note 10/28/2021 11:37 AM [phone]: Please page me @ [phone] for patient care issues. [phone]: Please page soybean grower for any issues@ night Subjective: Admit Date: [...] abnormality and previous indwelling tubing history of ROLL MACHINE OPERATOR shunt # Bilateral lower extremity wounds-wound [...] Services This report was created using the [employer] Speaking voice-activated system. Despite prompt dictation and careful editorial review, there may be subtle contextual errors in this report, due to misrecognition of the spoken word. Speech Language Pathology Facility/Department: [facility] MED SURG Dysphagia Treatment Note NAME: [...] and gloves were worn throughout this session. [facility] Anticoagulation Management Service ([facility]) Inpatient Warfarin Consult HPI: Andrew Sifuentes is a 71 y.o. 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 Past Medical History: Diagnosis Date ED (erectile dysfunction) Hemorrhoids Hydrocephalus, adult (HCC) Kidney stone Neuropathy ROLL MACHINE OPERATOR (ventriculoperitoneal) shunt status Patient is newly referred to the [facility] clinic for warfarin management. Pt was [...] PharmD IR[facility] Consult Service is available daily [phone]. Please search for covering pharmacist name via Mind Palette or Groups --> Pharmacy --> Anti-Coagulation Consult Pharmacist (on 3rd page). If no response via Mind Palette, please page [phone]. Follow up b/l foot wounds. No new [...] yr M with PMH obstructive hydrocephalus s/p ROLL MACHINE OPERATOR shunt in 1987, needing multiple revisions [...] normal limits and both old and new ROLL MACHINE OPERATOR shunt tubing noted. At present patient is awake, follows commands, was able to tell his name, and that he was in hospital but not oriented to time. Per documentation patient had NCSE in May 2021, was on Vimpat, but it was discontinued as there was no evidence of recurrent seizures in july 2021 by Neurology at [facility], per daughter patient was on Dilantin [...] normal limits and both old and new ROLL MACHINE OPERATOR shunt tubing noted -EEG mild to moderate slow, no seizures reported -Labs reviewed -Hydrocephalus management per Neurosurgery. At present patient does not have hydrocephalus on CT head done this admission. No Neurosurgery services available as inpatient in [facility]. Patient can follow up with Neurosurgery as outpatient and if ends up needing inpatient neurosurgery requirement then may need to be transferred to [facility]. -No clear clinical signs of ventriculitis. Defer evaluation to primary medical team/ID as deemed necessary. -Discussed with daughter in detail on . She was concerned that patient has had h/o seizures, and he has been taken off seizure medication, per note documentation patient had NCSE in May 2021 when he was admitted to [facility]. Per daughter she would want patient [...] interim. This note has been generated using [employer] software. It may contain incorrect words, punctuation's and spellings that were not noted in the review of the note prior to signing. This note has been generated using AMT dictation software. It may contain incorrect words, [...] LABALBU, AMYLASE, LIPASE in the last 72 hours.@BRIEFLAB([facility]) ABGs: )No results for input(s): [...] Radiology ACCESSION EXAM DATE/TIME PROCEDURE ORDERING PROVIDER [id number] 10/21/2021 15:30 EDT CR Calcaneus 2+ Views [id number] -HELENA, SHRUTHI Left CPT code 52367 Reason For Exam (CR Calcaneus 2+ Views [...] Tomography ACCESSION EXAM DATE/TIME PROCEDURE ORDERING PROVIDER [id number] 10/26/2021 11:[address] Head or Brain w/o JUNIE PINEDA, SARINA Contrast CPT code 37970 Reason For Exam (CT Head or Brain w/o Contrast) hydrocephalus. thank you Report CLINICAL INFORMATION: Hydrocephalus. Shunt. 3 mm axial cuts through the head are obtained without IV contrast. The examination is compared to a previous study dated 06/29/2014. FINDINGS: Old ROLL MACHINE OPERATOR shunt tubing is noted bilaterally. The [...] are clear. IMPRESSION: 1. Old and new ROLL MACHINE OPERATOR shunt tubing. 2. No hydrocephalus. 3. Atrophy and evidence of small-vessel ischemic disease. 4. No CT evidence of an acute intracranial process. Report Dictated on --- Final --- Dictating Physician: MD SOLANO JEFFREY Signed Date and Time: 10/26/2021 11:42 am Signed by: MD SOLANO JEFFREY Transcribed Date and Time: 10/26/2021 11:43 MRI ABDOMEN WO CONTRAST Result Date: 10/23/2021 [id number] Res[facility] Imaging ACCESSION EXAM DATE/TIME PROCEDURE ORDERING PROVIDER [id number] 10/23/2021 11:08 EDT MRI Abdomen w/o Contrast WING SRIVASTAVA CPT code 21832 Reason For Exam (MRI Abdomen w/o Contrast) [...] Medicine ACCESSION EXAM DATE/TIME PROCEDURE ORDERING PROVIDER [id number] 10/21/2021 07:55 EDT NM Pulmonary Perfusion [id number] MAY BOGGS w/ Vent Aerosol CPT code 11796 A9567 Reason For Exam (NM Pulmonary Perfusion [...] Brachial Indices Extremity Bilateral Result Date: 10/22/2021 [facility] --- Ankle Brachial Index Report Patient DO GurpreetB: 1950 Study 10/21/2021 Name: Andrew Gonzalez (71yrs) Date: Age: 71 Account: [id number] Gender: M Loc: 444W BP: Ordering Physician: Shruthi Malik Weld Lay Out Worker: Rody Cross RDMS, RVT Interpreting Physician: Carina Call --- Location: [facility] --- Indications: Foot wounds. Originally ordered as a full PVR. Ordering ICE CREAM FREEZER had to modify the order to ABIs [...] supine position. Images were obtained using a [employer] vascular ultrasound machine. --- Arterial pressure indices: [...] EXTREMITY BILATERAL VENOUS DUPLEX Result Date: 10/21/2021 [facility] --- Lower Extremity Venous Duplex Report Patient Gurpreet, : 1950 Study 10/21/2021 Name: Andrew Gonzalez (71yr) Date: Age: 71 Account: [id number] Gender: M Loc: 444 BP: Ordering Physician: May Cash Weld Lay Out Worker: Rody Cross RDMS [place]ison Interpreting Physician: Carina Call --- Location: [facility] --- Indications: Bilateral lower leg edema. --- [...] supine position. Images were obtained using a [employer] vascular ultrasound machine. --- Venous flow and [...] Radiology ACCESSION EXAM DATE/TIME PROCEDURE ORDERING PROVIDER [id number] 10/21/2021 08:16 EDT CR Chest 1 View Frontal [id number] MAY BOGGS CPT code 82885 Reason For Exam (CR Chest 1 View [...] Tomography ACCESSION EXAM DATE/TIME PROCEDURE ORDERING PROVIDER [id number] 10/22/2021 13:[address] Abdomen/Pelvis (No SRIVASTAVAWING KESSLER PO, No IV) CPT code 94219 Reason For Exam (CT Abdomen/Pelvis (No PO, [...] 2:37 All questions and concerns were addressed. aKtherine Barreto MD Neurology, Vascular Neurology 10/27/2021 12:48 PM Consults Speech Language Pathology Facility/Department: [facility] Dysphagia Treatment Note NAME: [...] reactivity and state change, indicative of a [id number] diffuse encephalopathy of nonspecific etiology. There are [...] Easy to chew diet/cut up. NEVILLE Jones M.A.CCC/PLUGGER MAN Time session ended: 1156 Total session minutes: 23 Images from the original note were not included. Hospitalist Progress Note 10/27/2021 10:40 AM [phone]: Please page ca @ [phone] for patient care issues. [phone]: Please page soybean grower for any issues@ night Subjective: Admit Date: [...] Services This report was created using the [employer] Speaking voice-activated system. Despite prompt dictation and careful editorial review, there may be subtle contextual errors in this report, due to misrecognition of the spoken word. [facility] Anticoagulation Management Service ([facility]) Inpatient Warfarin Consult HPI: Andrew Sifuentes is a 71 y.o. 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 Past Medical History: Diagnosis Date ED (erectile dysfunction) Hemorrhoids Hydrocephalus, adult (HCC) Kidney stone Neuropathy ROLL MACHINE OPERATOR (ventriculoperitoneal) shunt status Patient is newly referred to the [facility] clinic for warfarin management. Pt was [...] PharmD [facility] Consult Service is available daily [phone]. Please search for covering pharmacist name via Mind Palette or Groups --> Pharmacy --> Anti-Coagulation Consult Pharmacist (on 3rd page). If no response via Mind Palette, please page [phone]. I cleaned under patient's finger nails with [...] status with Warfarin. Discussed with patient's staffing administrator. Will continue to monitor. Total visit time [...] if concern Hydrocephalus Chronic WOODARD's - Revised ROLL MACHINE OPERATOR shunt - daughter requested that pt have CT / MRI of brain and neurology be consulted, this was done. - "Hydrocephalus management per Neurosurgery. At present patient does not have hydrocephalus on CT head done this morning. No Neurosurgery services available as inpatient in [facility]. Patient can follow up with Neurosurgery as outpatient and if ends up needing inpatient neurosurgery requirement then may need to be transferred to [facility]. " Seizure history, unspecified - daughter [...] get report from nursing. Continue wound care. [facility]ticoagulation [facility] ([facility]) Inpatient Warfarin Consult HPI: Andrew Sifuentes is a 71 y.o. 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 Past Medical History: Diagnosis Date ED (erectile dysfunction) Hemorrhoids Hydrocephalus, adult (HCC) Kidney stone Neuropathy ROLL MACHINE OPERATOR (ventriculoperitoneal) shunt status Patient is newly referred to the [facility] clinic for warfarin management. Pt was [...] drug interactions and adjust dose accordingly. 3. [facility] will manage while inpatient and sign off at discharge. Patient resides in a SNF. 4. Will provide warfarin education including [facility] warfarin booklet, if appropriate. Thank you for this consult Brionna Le, PharmD candidate Josie Gupta RP, PharmD [facility] Consult Service is available daily [phone]. Please search for covering pharmacist name via Mind Palette or Groups --> Pharmacy --> Anti-Coagulation Consult Pharmacist (on 3rd page). If no response via PerfectServe, please page [phone]. Moon daughter stated that any of patient's family can call and obtain an update on patient's status. Speech Language Pathology Facility/Department: [facility] CLINICAL BEDSIDE SWALLOW EVALUATION [...] a small bore straw. Additionally discussed with PLUGGER MAN, agreeable to assess tomorrow. Recent Chest Xray/CT [...] and liquids between bites. Treatment Plan Requires PLUGGER MAN Intervention: Yes Duration of Treatment: 2 weeks [...] Education Response: Verbalizes understanding;Needs reinforcement Therapy Time PLUGGER MAN Individual Minutes Time In: 826 Time Out: 852 Minutes: 26 NEVILLE Jones 10/26/2021 9:20 AM Comprehensive Nutrition Assessment Type and Reason for Visit: Initial (DT referral for wounds) Nutrition Recommendations/Plan: 1. Recommend to continue: Easy to Chew diet with Thin Liquids as currently ordered and safe for patient to participate in. Discussed with: RN, ICE CREAM FREEZER, and PLUGGER MAN. PLUGGER MAN to assess tomorrow, best diet and liquid [...] & deltoids),Scapula (trapezius) Fluid Accumulation: Mild Extremities [employer] Director [employer] Strength: Not Performed Nutrition Assessment: 71 year [...] a small bore straw. Additionally discussed with PLUGGER MAN, agreeable to assess tomorrow. Nutrition Related Findings: [...] Anthropometric Measures: Height: 5' 7.01" (170.2 cm) [place] Body Weight (IBW): 148 lbs (67 kg) Admission Body Weight: 240 lb (108.9 kg) (stated 10/21/21) Current Body Weight: 205 lb 4 oz (93.1 kg) (10/25/21), 138.7 % IBW. Weight Source: Bed Scale Current BMI (kg/m2): 32.1 Usual Body Weight: 272 lb 11.3 oz (123.7 kg) (05/30/21 and 232.5# noted 08/14/21 at [facility] per EMR Review) % Weight Change (Calculated): -24.7 BMI Categories: Obese Class 1 (BMI 30.0-34.9) Estimated Daily Nutrient Needs: Energy Requirements Based On: Kcal/kg Weight Used for Energy Requirements: [place] (67.15 kg) Energy (kcal/day): 3333-2892 (27-32 kcal/kg IBW) --> increased need d/t wounds Weight Used for Protein Requirements: [place] (67.15 kg) Protein (g/day): 67-101 (1.0-1.5 g protein/kg IBW) Method Used for Fluid Requirements: Other (Comment) Fluid (ml/day): 0789-4450 mL daily or per MD Nutrition Diagnosis: [...] Plan of Care discussed with: Patient, RN, ICE CREAM FREEZER [place] Goals: Goals: other (specify) Specify Other Goals: [...] to determine Puja Almanza RD, LD Contact: *[phone] Or Via Mind Palette Hematology/Oncology Attending Progress Note SUBJECTIVE: Patient seen [...] IRON, TIBC, FERRITIN No results found for: [id number] No results found for: FOLATE PT 15.6 INR 1.5 CA 19 - 9 is 17 Protein S 138% Protein C 186% ASSESSMENT AND PLAN GI input appreciated. Patient continues with subtherapeutic INR. GI input appreciated. Discussed with patient's staffing administrator. Will continue monitor. Total visit time > 35 minutes. [facility] ([facility]) Inpatient Warfarin Consult HPI: Andrew Sifuentes is a 71 y.o. 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 Past Medical History: Diagnosis Date ED (erectile dysfunction) Hemorrhoids Hydrocephalus, adult (HCC) Kidney stone Neuropathy ROLL MACHINE OPERATOR (ventriculoperitoneal) shunt status Patient is newly referred to the [facility] clinic for warfarin management. Pt was [...] PharmD IRVIN Consult Service is available daily [phone]. Please search for covering pharmacist name via Mind Palette or Groups --> Pharmacy --> Anti-Coagulation Consult Pharmacist (on 3rd page). If no response via PerfectServe, please page [phone]. Progress Note 10/25/2021 9:36 AM Name: Andrew [...] if concern Hydrocephalus Chronic WOODARD's - Revised ROLL MACHINE OPERATOR shunt DC planning - 10/25/21: INR [...] if concern Hydrocephalus Chronic WOODARD's - Revised ROLL MACHINE OPERATOR shunt DC planning - Can be DC'd back to ECF once MRI done if no acute findings, MRI is done, defer to hem / onc on plan for that, awaiting chest PA with fluoro Patient seen and chart reviewed. Consult dictated. Will ask GI to assess concerning the etiology of liver lesions. Will continue to monitor. [facility] ([facility]) Inpatient Warfarin Consult HPI: Andrew Sifuentes is a 71 y.o. 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 Past Medical History: Diagnosis Date ED (erectile dysfunction) Hemorrhoids Hydrocephalus, adult (HCC) Kidney stone Neuropathy ROLL MACHINE OPERATOR (ventriculoperitoneal) shunt status Patient is newly referred to the [facility] clinic for warfarin management. Pt was [...] consult Brionna Le, PharmD candidate Josie Gupta [facility], PharmD [facility] Consult Service is available daily [phone]. Please search for covering pharmacist name via Mind Palette or Groups --> Pharmacy --> Anti-Coagulation Consult Pharmacist (on 3rd page). If no response via PerfectServe, please page [phone]. Follow up foot wounds Patient is more alert this morning. Waffle boots are on Ulcer left heel ulcer right foot Foot drop PE, chart reviewed. Patient relates that he does not walk at home. c ontinue wound care. Images from the original note were not included. Hospitalist Progress Note 10/23/2021 1:47 PM [phone]: Please page me ([phone]) or perfect serve me for patient care issues. [phone]: Please page [facility] night Hospitalist for any issues. Subjective: Admit Date: 10/21/2021 PCP: MONIKA STALEY MD Room#: [phone]/[id number] Admitting Synopsis: 71 y/o male presents from [...] if concern Hydrocephalus Chronic WOODARD's - Revised ROLL MACHINE OPERATOR shunt DC planning - Can be [...] Hemorrhoids Hydrocephalus, adult (HCC) Kidney stone Neuropathy ROLL MACHINE OPERATOR (ventriculoperitoneal) shunt status Medications: sodium chloride [...] of Hospitalist Medicine Inpatient Medical Services PAGER: [phone] Nutrition rescreen completed. Pt referred to RD for foot ulcers. Occupational Therapy Facility/Department: [facility] Occupational Therapy Initial Assessment Name: Andrew Sifuentes : 1950 Date of Service: 10/23/2021 OT eval and treat orders received. Chart reviewed. Per notes pt from F, is Boaz lift at baseline, non-ambulatory, and requires assist for all ADLs. Will d/c OT orders. Elizabeth Gutierrez OT Physical Therapy Facility/Department: [facility] Physical Therapy Initial Assessment Name: Andrew Sifuentes : 1950 Date of Service: 10/23/2021 PT eval and treat orders received. Chart reviewed. Per notes pt from F, is Boaz lift at baseline, non-ambulatory. Will d/c PT orders. Lloyd Silva PT [facility] ([facility]) Inpatient Warfarin Consult HPI: Andrew Sifuentes is a 71 y.o. 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 Past Medical History: Diagnosis Date ED (erectile dysfunction) Hemorrhoids Hydrocephalus, adult (HCC) Kidney stone Neuropathy ROLL MACHINE OPERATOR (ventriculoperitoneal) shunt status Patient is newly referred to the [facility] clinic for warfarin management. Pt was [...] for this consult Lisa Forrest RPH, PharmD [facility] Consult Service is available daily [phone]. Please search for covering pharmacist name via Mind Palette or Groups --> Pharmacy --> Anti-Coagulation Consult Pharmacist (on 3rd page). If no response via Mind Palette, please page [phone]. Department of Podiatry Attending Consult Note Reason for Consult: Wound care Requesting Physician: MD Oksana CHIEF COMPLAINT: Foot wounds HISTORY OF PRESENT ILLNESS: The patient is a 71 y.o. male with b/l foot wounds. Patient is awake , but not answering questions. Past Medical History: Diagnosis Date ED (erectile dysfunction) Hemorrhoids Hydrocephalus, adult (HCC) Kidney stone Neuropathy ROLL MACHINE OPERATOR (ventriculoperitoneal) shunt status Past Surgical History: [...] OT consulted. Will follow . Thank you. [facility] Respiratory Care Department Progress Note As part [...] included. Hospitalist Progress Note 10/22/2021 6:33 AM [phone]: Please page me ([phone]) or perfect serve me for patient care issues. [phone]: Please page [facility] night Hospitalist for any issues. Subjective: [...] consider MRI if concern Hydrocephalus - Revised ROLL MACHINE OPERATOR shunt Interval History: No overnight issues. [...] no cyanosis or edema and unable to earth mover BLE, this is old Musculoskeletal: Muscle [...] Hemorrhoids Hydrocephalus, adult (HCC) Kidney stone Neuropathy ROLL MACHINE OPERATOR (ventriculoperitoneal) shunt status Medications: sodium chloride [...] last 72 hours. PT/INR: Recent Labs 10/21/21 021 PROTIME 11.5 INR 1.1 CARDIAC ENZYMES: No [...] of Hospitalist Medicine Inpatient Medical Services PAGER: [phone] Images from the original note were not included. Hospitalist Progress Note 10/21/2021 5:31 PM [phone]: Please page me ([phone]) or perfect serve me for patient care issues. [phone]: Please page [facility] night Hospitalist for any issues. Subjective: Admit Date: 10/21/2021 PCP: MONIKA STALEY MD Room#: [phone]/[phone] Admitting Synopsis: 71 y/o male presents from [...] Will need chronic OAC Hydrocephalus - Revised ROLL MACHINE OPERATOR shunt Interval History: No overnight issues. [...] Hemorrhoids Hydrocephalus, adult (HCC) Kidney stone Neuropathy ROLL MACHINE OPERATOR (ventriculoperitoneal) shunt status Medications: sodium chloride baclofen 10 mg Oral TID bumetanide 2 mg Oral Daily potassium chloride 20 mEq Oral Daily sodium chloride flush 5-40 mL IntraVENous 2 times per day enoxaparin 1 mg/kg SubCUTAneous BID ipratropium-albuterol 1 ampule Inhalation Q4H GA LABS: CBC: Recent Labs 10/21/21209 WBC 11.6* [...] of Hospitalist Medicine Inpatient Medical Services PAGER: [phone] Family member Triny, sister to patient, called back to the hospital stating that she was returning a call from a provider. Her phone number is [phone] to speak with whomever was attempting to reach out to her. documented in this encounter [employer] Phone: 10-17-2021 Miscellaneous Notes Mr. Sifuentes missed his hospital stay follow-up appointment w. Dr. Lim today. Called to Reschedule. Could not get through. "Subscriber you have dialed not in service" - was the automated voice mail. Unable to leave . No other phone# available. Ramya Negro Scale Shooter [facility] Spine documented in this encounter [facility] 08-19-2021 Note [facility] 08-19-2021 Note [facility] 08-18-2021 Note [facility] 08[facility]18-2021 Note [facility] 08[facility]17-2021 Note [facility] 08-17-2021 Note [facility] 08-16-2021 Note [facility] 08-16-2021 Note HNO ID: [id number] Author: Katt Kelsey DO Service: Hospital Medicine Author Type: Physician Type: Plan of Care Filed: 08/16/2021 12:26 PM Note Text: Spoke with RN that line is a PICC. Katt Kelsey DO 08/16/2021 12:26 PM [facility] 08-16-2021 Note [facility] 08-16-2021 Note [facility] 08-15-2021 Note [facility] 08-15-2021 Note [facility] 08-15-2021 Note [facility] 08-14-2021 Note [facility] 08-14-2021 Note [facility] 08-13-2021 Note [facility] 08-13-2021 Note [facility] 08-13-2021 Note [facility] 08-13-2021 Note HNO ID: [id number] Author: Interface Note Service: ? Author Type: ? Type: Progress Notes Filed: 08/13/2021 3:10 AM Note Text: Epic Scheduled Downtime: 08/13/2021 1:08:47 AM to 08/13/2021 2:53:47 AM [facility] 08-12-2021 Note [facility] 08-12-2021 Note [facility] 08-12-2021 Note [facility] 08-11-2021 Note [facility] 08-11-2021 Note [facility] 08-11-2021 Note [facility] 08[facility]11-2021 Note [facility] 08-11-2021 Note [facility] 08-11-2021 Note [facility] 08-10-2021 Note [facility] 08-10-2021 Note [facility] 08-10-2021 Note [facility] 08-10-2021 Note [facility] 08-09-2021 Note HNO ID: [id number] Author: Shannon Brooks RN Service: ? Author Type: Registered Nurse Type: Nursing Progress Note Filed: 08/09/2021 7:33 PM Note Text: Report called to unit [facility] 08-09-2021 Note [facility] 08-09-2021 Note [facility] 08-09-2021 Note [facility] 08-08-2021 Note [facility] 08-08-2021 Note [facility] 08-08-2021 Note [facility] 08-07-2021 Note [facility] 08[facility]07-2021 Note [facility] 08-07-2021 Note [facility] 08-07-2021 Note [facility] 08-07-2021 Note [facility] 08-06-2021 Note [facility] 08-06-2021 Note [facility] 08-06-2021 Note [facility] 08-05-2021 Note [facility] 08[facility]05-2021 Note [facility] 08-05-2021 Note [facility] 08-04-2021 Note [facility] 08-04-2021 Note [facility] 08-04-2021 Note [facility] 08-03-2021 Note [facility] 08-03-2021 Note [facility] 08-03-2021 Note [facility] 08-02-2021 Note [facility] 08-02-2021 Note [facility] 08-02-2021 Note [facility] 08-01-2021 Note [facility] 08-01-2021 Note [facility] 08[facility]01-2021 Note [facility] 08-01-2021 Note [facility] 07-31-2021 Note [facility] 07-31-2021 Note [facility] 07-30-2021 Note [facility] 07-30-2021 Note [facility] 07-30-2021 Note [facility] 07-29-2021 Note [facility] 07-29-2021 Note [facility] 07-29-2021 Note [facility] 07-28-2021 Note [facility] 07-28-2021 Note [facility] 07-28-2021 Note [facility] 07-27-2021 Note [facility] 07-27-2021 Note [facility] 07-27-2021 Note [facility] 07-26-2021 Note [facility] 07-26-2021 Note [facility] 07-26-2021 Note [facility] 07-26-2021 Note [facility] 07-26-2021 Note [facility] 07-25-2021 Note [facility] 07-25-2021 Note [facility] 07-25-2021 Note [facility] 07-25-2021 Note [facility] 07-24-2021 Note [facility] 07[facility]24-2021 Note [facility] 07-24-2021 Note [facility] 07-23-2021 Note [facility] 07[facility]23-2021 Note [facility] 07-23-2021 Note [facility] 07-23-2021 Note [facility] 07-23-2021 Note [facility] 07-22-2021 Note [facility] 07-22-2021 Note [facility] 07-22-2021 Note [facility] 07-21-2021 Note [facility] 07-21-2021 Note [facility] 07-21-2021 Note [facility] 07-21-2021 History of [...] history of fever, elevated WBC, RP hematoma ROLL MACHINE OPERATOR shunt tip grew anaerobic gram positive cocci 06/08/2021 PLAN: ROLL MACHINE OPERATOR shunt tip sent to [facility] main, awaiting cx Continue Meropenem [...] - following CSF studies; 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 for RAILWAY SIGNAL OPERATOR infection at this time - ID following- Continue antibiotics: Meropenem -CSF leak from EVD site, appreciate NSGY recs> stat repeat CTH on 06/07 d/t concern for CSF leak, cephalematoma, CTH unremarkable -Tolerating TF - SBT WTE - PICC line placed documented as of this encounter (statuses as of 10/17/2021) [facility]03-17-2022 [facility]03-16-2022 [facility]03-16-2022 [facility]03-16-2022 Note [facility]03-16-2022 [facility] 07-19-2021 [facility]03-15-2022 [facility]03-15-2022 [facility]03-14-2022 [facility]03-14-2022 [facility]03-13-2022 [facility]03-13-2022 [facility]03-12-2022 Note [facility]03-12-2022 [facility] 07-15-2021 [facility] [facility] [place]03-10-2022 [facility]03[facility]10-2022 [facility]03-10-2022 [facility]03-09-2022 [facility]03-09-2022 [facility]03-09-2022 Note [facility]03-09-2022 [facility] 07-12-2021 [facility]08-2022 [facility]-07-2022 [facility]03-07-2022 [facility]03-07-2022 [facility]03-07-2022 [facility]03-06-2022 [facility]03-06-2022 Note [facility]03-05-2022 [facility] 07-09-2021 [facility]03-05-2022 [facility]03-05-2022 [facility]03-05-2022 NoteHNO ID: [id number] Author: Lizette Valderrama RN Service: Nursing Author Type: Registered Nurse Type: Nursing Progress Note Filed: 07/09/2021 1:41 AM Note Text: [facility] NoteHNO ID: [id number] Author: Lizette Valderrama RN Service: Nursing Author Type: Registered Nurse Type: Nursing Progress Note Filed: 07/08/2021 8:57 PM Note Text: [address] 2049 back to PACU [facility]03-04-2022 NoteHNO ID: [id number] Author: Sukhi Chery APRN.CNP Service: ? Author Type: Nurse Practitioner Type: Progress Notes Filed: 07/09/2021 6:46 PM Note Text: Connected Care Unit Progress Note Patient Name: Andrew Sifuentes Patient Facility: [facility] Admit Date 06/28/2021 Level of Care: Skilled [...] Provider Location Dept Phone 07/21/2021 11:00 AM CELINA LIMLISSY STEPH LAWTON [phone] HPI: (Per Dr. Beltran) Andrew Sifuentes is being seen today for penitentiary facility (SNF) admission AND management of weakness, tube feed, infected retroperitoneal infection and seizure. ? This is a 71 year old male who presents from [facility] with primary admitting diagnosis of Seizure, [...] CT brain concerning for hydrocephalus. Tip of ROLL MACHINE OPERATOR shunt was found to be in [...] slow to respond. Ordered to transfer to [facility] ED for evaluation of neurological and [...] changes in co (more content not included)... [facility]03-04-2022 [facility]03-04-2022 [facility]03-02-2022 NoteHNO ID: [id number] Author: Sukhi Chery APRN.CNP Service: ? Author Type: Nurse Practitioner Type: Progress Notes Filed: 07/09/2021 6:20 PM Note Text: Connected Care Unit Progress Note Patient Name: Andrew Sifuentes Patient Facility: [place] Admit Date 06/28/2021 Level of Care: Skilled [...] Phone 07/21/2021 11:00 AM NICOLE LIM JERED [phone] HPI: (Per Dr. Beltran) Andrew Sifuentes is being seen today for penitentiary facility (SNF) admission AND management of weakness, tube feed, infected retroperitoneal infection and seizure. ? This is a 71 year old male who presents from [facility] with primary admitting diagnosis of Seizure, [...] CT brain concerning for hydrocephalus. Tip of ROLL MACHINE OPERATOR shunt was found to be in [...] Pharynx: Oropharynx is clear. (more content not included)...[facility]02-28-2022 NoteHNO ID: [id number] Author: Sukhi Chery APRN.VICTORIANO Service: ? Author Type: Nurse Practitioner Type: Progress Notes Filed: 07/09/2021 6:07 PM Note Text: Connected Care Unit Progress Note Patient Name: Andrew Sifuentes Patient Facility: [place] Admit Date 06/28/2021 Level of Care: Skilled [...] but nursing notes it was drawn by lumber checker as vancomycin was being infused; reordered trough - PICC Line Intact - No fevers or chills per patient or staff (R53.81) Debility - Certify therapies - Maintain high falls risk precautions - pt/staff verbalize understanding validated via teach back - Monitor safety awareness Appointments for Next 60 Days Date Time Provider Location Dept Phone 07/21/2021 11:00 AM CHANDLERNICOLE [phone] HPI: (Per Dr. Beltran) Andrew Sifuentes is being seen today for penitentiary facility (SNF) admission AND management of weakness, tube feed, infected retroperitoneal infection and seizure. ? This is a 71 year old male who presents from [facility] with primary admitting diagnosis of Seizure, [...] CT brain concerning for hydrocephalus. Tip of ROLL MACHINE OPERATOR shunt was found to be in [...] to facility records. OBJECTIVE: Labs/diagnostics: 07/04/2021 Glucose=91 Te=916 K=3.8 Ft=288 CO2=24 BUN=14 Creatinine=0.5 XJA=239 Ca=9.0 Protein,Total=6.7 Albumin=3.6 KehLfgo=526 AST=15 ALT=21 Bilirubin,Totall=0.5 WBC=10.7 RBC=4.04 Hgb=10.9 Hct=35.3 Etfmuuiq=080 VancomycinTr (more content not included)...[facility]02-24-2022 NoteHNO ID: [id number] Author: Sukhi Chery APRN.CNP Service: ? Author Type: Nurse Practitioner Type: Progress Notes Filed: 07/09/2021 5:43 PM Note Text: Connected Care Unit Progress Note Patient Name: Andrew Sifuentes Patient Facility: [place] Admit Date 06/28/2021 Level of Care: Skilled [...] unspecified type, unspecified whether septic shock present ([facility]) - Dr. Mckenzie with ID Following - Continue on Vancomycin; recent trough was 15 - PICC Line Intact (R53.81) Debility - Certify therapies - Maintain high falls risk precautions - pt/staff verbalize understanding validated via teach back - Monitor safety awareness Appointments for Next 60 Days Date Time Provider Location Dept Phone 07/21/2021 11:00 AM NICOLE LIM [phone] HPI: (Per Dr. Beltran) Andrew Sifuentes is being seen today for penitentiary facility (SNF) admission AND management of weakness, tube feed, infected retroperitoneal infection and seizure. ? This is a 71 year old male who presents from [facility] with primary admitting diagnosis of Seizure, [...] CT brain concerning for hydrocephalus. Tip of ROLL MACHINE OPERATOR shunt was found to be in [...] to facility records. OBJECTIVE: Labs/diagnostics: 07/01/2021 Glucose=83 Ll=410 K=4.1 Ko=789 CO2=27 BUN=22 Creatinine=0.6 ZAH=508 Ca=8.7 WBC=10.8 RBC=3.40 Hgb=9.3 Hct=29.9 Mxgrryyw=709 Vital Signs: BP 128/80 Pulse 77 Temp 36.7 ?C (98 ?F) Resp 20 Ht 182.9 cm (6') Wt 113 kg (249 lb 3.2 oz) SpO2 96% BMI 33.80 kg/m? Physical Exam: Physical Exam Vitals reviewed. Constitutional: General: He is not in acute distress. (more content not included)...[facility]02-22-2022 [facility]02-22-2022 [facility]02-21-2022 [facility]02-21-2022 Note [facility]02-20-2022 [facility] 06-26-2021 [facility]02-19-2022 [facility]02-19-2022 [facility]02-18-2022 [facility]02-18-2022 [facility]02-18-2022 [facility]02-17-2022 [facility]02-17-2022 Note [facility]02-17-2022 [facility] 06-22-2021 NoteO ID: [id number] Author: Xiomy England RN Service: Nursing Author Type: Registered Nurse Type: Nursing Progress Note Filed: 06/22/2021 7:22 PM Note Text: RT contacted as pt has wheezing auscultated and same auditory. For prn Treatment.[facility]02-16-2022 [facility]02-16-2022 [facility]02-16-2022 [facility]02-16-2022 [facility]02-16-2022 [facility]02-15-2022 [facility]02-15-2022 Note [facility]02-15-2022 [facility] 06-21-2021 [facility]02-14-2022 [facility]02-14-2022 [facility]02-14-2022 [facility]02-14-2022 [facility]02-14-2022 [facility]02-13-2022 [facility]02-13-2022 Note [facility]02-13-2022 [facility] 06-19-2021 [facility]02-13-2022 [facility]02-12-2022 [facility]02[facility]12-2022 [facility]02-12-2022 [facility]02-12-2022 [facility]02-12-2022 [facility]02-12-2022 Note [facility]02-12-2022 NoteHNO ID: [id number] Author: Interface Note Service: ? Author Type: ? Type: Progress Notes Filed: 06/18/2021 3:10 AM Note Text: Epic Scheduled Downtime: 06/18/2021 1:00:00 AM to 06/18/2021 2:27:00 [facility]02-11-2022 [facility]02-11-2022 Note [facility]02-11-2022 [facility] 06-17-2021 [facility]02-11-2022 [facility]02-11-2022 [facility]02-10-2022 [facility]02-10-2022 [facility]02-10-2022 [facility]02-10-2022 [facility]02-10-2022 Note [facility]02-10-2022 [facility] 06-15-2021 [facility]02-09-2022 NoteHNO ID: [id number] Author: Lamonte Kline DO Service: Neurology ICU Author Type: Resident Type: Plan of Care Filed: 06/15/2021 6:21 PM Note Text: Patient's daughter Melissa updated on plan of care and critical condition, all questions answered.[facility]02-09-2022 [facility]02-09-2022 [facility]02-09-2022 [facility]02-09-2022 [facility]02-09-2022 Note [facility]02-09-2022 [facility] 06-15-2021 [facility]02-08-2022 [facility]02-08-2022 [facility]02-08-2022 [facility]02-08-2022 [facility]02-07-2022 [facility]02[facility]07-2022 [facility]02-07-2022 Note [facility]02-07-2022 [facility] 06-12-2021 [facility]02-06-2022 [facility]02-06-2022 [facility]02-05-2022 [facility]02-05-2022 [facility]02-04-2022 [facility]02-04-2022 [facility]02-04-2022 Note [facility]02-04-2022 [facility] 06-09-2021 [facility]02-03-2022 [facility]02-03-2022 [facility]02-03-2022 [facility]02-02-2022 [facility]02-02-2022 NoteHNO ID: [id number] Author: Luis Diaz RN Service: ? Author Type: Registered Nurse Type: Nursing Progress Note Filed: 06/08/2021 9:23 AM Note Text: Patient off the floor to OR at this time.[facility]02-02-2022 [facility]02-02-2022 [facility] 06-08-2021 NoteHNO ID: [id number] Author: Eloise Samuel RN Service: ? Author Type: Registered Nurse Type: Nursing Progress Note Filed: 06/08/2021 12:46 AM Note Text: Dr. Brito notified of changes throughout shift. No [facility] 06-07-2021 NoteHNO ID: [id number] Author: Eloise Samuel RN Service: ? Author Type: Registered Nurse Type: Nursing Progress Note Filed: 06/07/2021 8:01 PM Note Text: Neuro surg [employer] MEMBER notified of downward deviation of pupils. No new orders at this time.[facility]02-01-2022 [facility]02-01-2022 [facility]02-01-2022 [facility]02-01-2022 [facility]01-31-2022 [facility]01-31-2022 [facility]01-31-2022 Note [facility]01-31-2022 [facility] 06-05-2021 [facility]01-30-2022 [facility]01-30-2022 [facility]01-29-2022 [facility]01-29-2022 NoteHNO ID: [id number] Author: Jermaine Miller PA-C Service: Neurosurgery Author Type: Physician Towel Hemmer Type: Plan of Care Filed: 06/04/2021 1:59 PM Note Text: Discussed with Dr. Charles CT brain results. At this time, continue with EVD [facility] 06-04-2021 [facility]01-28-2022 [facility]01-28-2022 NoteHNO ID: [id number] Author: Mauricio Frank DO Service: Neurology ICU Author Type: Physician Type: Plan of Care Filed: 06/03/2021 2:38 PM Note Text: I spoke with Melissa and updated her over the phone. Mauricio Frank, [facility]01-28-2022 [facility]01-28-2022 [facility]01-27-2022 [facility]01-27-2022 [facility]01-27-2022 Note [facility]01-26-2022 [facility] 06-01-2021 [facility]01-26-[facility]01-26-2022 [facility]01-25-2022 [facility]01[facility]25-[facility]01-25-2022 Note [facility]01-25-2022 [facility] 05[facility]31-[facility] Diagnosis Leg swelling- Primary Swelling of limb Acute deep vein thrombosis (DVT) of proximal vein of lower extremity, unspecified laterality (HCC) DVT, lower extremity, recurrent, unspecified laterality (HCC) Moderate malnutrition (HCC) Malnutrition of moderate degree History of seizures Personal history of other disorders of nervous system and sense organs documented in this encounter [facility] Work Phone: Evaluation noteNo assessment information available [facility] Work Phone: Evaluation note* Diagnosis Other [...] tract symptoms (LUTS) documented [facility] this encounter [facility] [employer] note* Diagnosis Left flank pain Abdominal pain, unspecified site Calculus of ureter documented in this encounter [facility] [employer]* Diagnosis Left flank pain- Primary Abdominal pain, unspecified site BPH with urinary obstruction Hypertrophy of prostate with urinary obstruction and other lower urinary tract symptoms (LUTS) History of kidney stones [facility] Name Dates Details Instructions not documented [id number] Work Phone: Instructions* Name Dates Details Instructions not documented [id number] [address] [place] Work Phone: Reason for referral (narrative)No reason for referral information availableWSelect Medical [facility] Work Phone: Advance Directives No Advanced Directives Records FoundDocuments on File Type Date Recorded Patient Supervisor Beater Room Expl anation Advance Directives and Living Will Power of Marketing Planner Documents on File Type Date Recorded Patient Supervisor Beater Room Expl anation Advance Directive(s) 06/02/2021 2:45 PM [...] Maker Relationship: 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 Adult Children (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) Documents on File Type Date Recorded Patient Supervisor Beater Room Expl anation ACP-Advance Directive ACP-Power of Marketing Planner Latest Code Status on File Code Status Date Activated Date Inactivated Comments Full Code 10/21/2021 4:09 AM Healthcare Agents on File Name Relationship Healthcare Agent Relationshi p Communication Melissakb Sifuentes Child Primary Decision Maker deann Sifuentes Child Secondary Decision Maker Documents on File Type Date Recorded Patient Supervisor Beater Room Expl anation ACP-Advance Directive ACP-Power of Marketing Planner ACP-Do Not Resuscitate 11/01/2021 7:03 AM Latest Code Status on File Code Status Date Activated Date Inactivated Comments Full Code 10/21/2021 4:09 AM 10/29/2021 7:25 PM Healthcare Agents on File Name Relationship Healthcare Agent Relationshi p Communication Melissakb Sifuentes Child Primary Decision Maker deann Gurpreet Child Secondary Decision Maker Documents on File Type Date Recorded Patient Supervisor Beater Room Expl anation ACP-Do Not Resuscitate 11/03/2021 10:15 AM ACP-Do Not Resuscitate 11/01/2021 7:03 AM Healthcare Agents on File Name Relationship Healthcare Agent Relationshi p Communication Melissa Gurpreet Child Primary Decision Maker deann Gurpreet Child Secondary Decision Maker Documents on File Type Date Recorded Patient Supervisor Beater Room Expl anation ACP-Do Not Resuscitate 11/03/2021 10:15 [...] Documents on File Type Date Recorded Patient Supervisor Beater Room Expl anation DNR (Do Not Resuscitate) 10/31/2021 DNR (Do Not Resuscitate) 10/21/2021 Documents on File Type Date Recorded Patient Supervisor Beater Room Expl anation DNR (Do Not Resuscitate) 10/31/2021 [...] WORK LABWORK Chief Complaint LAB WORK LABWORK FCI LAB WORK FCI LABWORK Chief Complaint LAB WORK LABWORK FCI LAB WORK FCI LABWORK LABWORK LABWORK FCI LAB WORK FCI LABWORK FCI LAB WORK LABWORK FCI LAB WORK LABWORK FCI LABWORK Chief Complaint LAB WORK LABWORK FCI LAB WORK FCI LABWORK LABWORK LABWORK FCI LAB WORK FCI LABWORK FCI LAB WORK LABWORK FCI LAB WORK LABWORK FCI LABWORK FCI LABWORK LABWORK Chief Complaint LAB WORK LABWORK FCI LAB WORK FCI LABWORK LABWORK LABWORK FCI LAB WORK FCI LABWORK FCI LAB WORK LABWORK FCI LAB WORK LABWORK FCI LABWORK FCI LABWORK LABWORK FCI LAB WORK Chief Complaint LABWORK FCI LAB WORK FCI LABWORK LABWORK LABWORK FCI LAB WORK FCI LABWORK FCI LAB WORK LABWORK FCI LAB WORK LABWORK FCI LABWORK FCI LABWORK LABWORK LABWORK FCI LAB WORK Chief Complaint LABWORK FCI LAB WORK FCI LABWORK LABWORK LABWORK FCI LAB WORK FCI LABWORK FCI LAB WORK LABWORK FCI LAB WORK LABWORK FCI LABWORK FCI LABWORK LABWORK LABWORK FCI LAB WORK LABWORK FCI LABWORK FCI LAB WORK FCI LABWORK Chief Complaint FCI LAB WOR K FCI LABWORK LABWORK LABWORK FCI LAB WORK FCI LABWORK FCI LAB WORK LABWORK FCI LAB WORK LABWORK FCI LABWORK FCI LABWORK LABWORK LABWORK FCI LAB WORK LABWORK FCI LABWORK FCI LAB WORK FCI LABWORK FCI LAB WORK Chief Complaint FCI LABWORK LABWORK LABWORK FCI LAB WORK FCI LABWORK FCI LAB WORK LABWORK FCI LAB WORK LABWORK FCI LABWORK FCI LABWORK LABWORK LABWORK FCI LAB WORK LABWORK FCI LABWORK FCI LAB WORK FCI LABWORK LABWORK FCI LAB WORK Chief Complaint FCI LAB WOR K FCI LABWORK FCI LAB WORK LABWORK FCI LAB WORK LABWORK FCI LABWORK FCI LABWORK LABWORK LABWORK FCI LAB WORK LABWORK FCI LABWORK FCI LAB WORK FCI LABWORK LABWORK LABWORK FCI LAB WORK FCI PATIENT FCI LABWORK FCI LABWORK Chief Complaint LABWORK FCI LAB WORK LABWORK FCI LABWORK FCI LABWORK LABWORK LABWORK FCI LAB WORK LABWORK FCI LABWORK FCI LAB WORK FCI LABWORK LABWORK LABWORK FCI LAB WORK FCI PATIENT FCI LABWORK FCI LABWORK FCI LAB WORK Chief Complaint LABWORK FCI LABWORK FCI LABWORK LABWORK LABWORK FCI LAB WORK LABWORK FCI LABWORK FCI LAB WORK FCI LABWORK LABWORK LABWORK FCI LAB WORK FCI PATIENT FCI LABWORK FCI LABWORK FCI LAB WORK FCI LAB WORK FCI LAB WORK Chief Complaint LABWORK LABWORK FCI LAB WORK FCI PATIENT FCI LABWORK FCI LABWORK FCI LAB WORK FCI LAB WORK FCI LAB WORK FCI LABWORK FCI LABWORK LABWORK FCI LAB WORK LABWORK Chief Complaint FCI LAB WOR K FCI PATIENT FCI LABWORK FCI LABWORK FCI LAB WORK FCI LAB WORK FCI LAB WORK FCI LABWORK FCI LABWORK LABWORK FCI LAB WORK LABWORK FCI LABWORK Chief Complaint FCI PATIENT FCI LABWORK FCI LABWORK FCI LAB WORK FCI LAB WORK FCI LAB WORK FCI LABWORK FCI LABWORK LABWORK FCI LAB WORK LABWORK FCI LABWORK FCI LABWORK Chief Complaint FCI LABWORK FCI LAB WORK FCI LAB WORK FCI LAB WORK FCI LABWORK FCI LABWORK LABWORK FCI LAB WORK LABWORK FCI LABWORK FCI LABWORK FCI LABWORK Chief Complaint FCI LABWORK FCI LAB WORK FCI LAB WORK FCI LAB WORK FCI LABWORK FCI LABWORK LABWORK FCI LAB WORK LABWORK FCI LABWORK FCI LABWORK FCI LABWORK FCI LABWORK Chief Complaint FCI LABWORK LABWORK FCI LAB WORK LABWORK FCI LABWORK FCI LABWORK FCI LABWORK FCI LABWORK FCI LABWORK LABWORK FCI LABWORK Chief Complaint LABWORK FCI LAB WORK LABWORK FCI LABWORK FCI LABWORK FCI LABWORK FCI LABWORK FCI LABWORK LABWORK LABWORK FCI LABWORK FCI LAB WORK FCI LABWORK FCI LAB WORK Chief Complaint LABWORK FCI LAB WORK LABWORK FCI LABWORK FCI LABWORK FCI LABWORK FCI LABWORK FCI LABWORK LABWORK LABWORK FCI LABWORK FCI LAB WORK FCI LABWORK FCI LAB WORK FCI LABWORK Chief Complaint LABWORK FCI LAB WORK LABWORK FCI LABWORK FCI LABWORK FCI LABWORK FCI LABWORK FCI LABWORK LABWORK LABWORK FCI LABWORK FCI LAB WORK FCI LABWORK FCI LAB WORK FCI LABWORK LABWORK Chief Complaint FCI LABWORK FCI LABWORK FCI LABWORK FCI LABWORK FCI LABWORK LABWORK LABWORK FCI LABWORK FCI LAB WORK FCI LABWORK FCI LAB WORK FCI LABWORK LABWORK FCI LABWORK Chief Complaint FCI LABWORK FCI LABWORK FCI LABWORK FCI LABWORK FCI LABWORK LABWORK LABWORK FCI LABWORK FCI LAB WORK FCI LABWORK FCI LAB WORK FCI LABWORK LABWORK FCI LABWORK LABWORK Chief Complaint FCI LABWORK LABWORK LABWORK FCI LABWORK FCI LAB WORK FCI LABWORK FCI LAB WORK FCI LABWORK LABWORK FCI LABWORK LABWORK FCI LAB WORK FCI LAB WORK FCI LABWORK Chief Complaint LABWORK FCI LABWORK LABWORK FCI LAB WORK FCI LAB WORK FCI LABWORK FCI LABWORK FCI LAB WORK FCI LAB WORK FCI LAB WORK LABWORK FCI LABWORK Chief Complaint FCI LAB WOR K FCI LAB WORK FCI LABWORK FCI LABWORK FCI LAB WORK FCI LAB WORK FCI LAB WORK LABWORK FCI LABWORK LABWORK FCI LAB WORK FCI LAB WORK Chief Complaint FCI LAB WOR K FCI LABWORK FCI LABWORK FCI LAB WORK FCI LAB WORK FCI LAB WORK LABWORK FCI LABWORK LABWORK FCI LAB WORK FCI LAB WORK Chief Complaint FCI LABWORK FCI LABWORK FCI LAB WORK FCI LAB WORK FCI LAB WORK LABWORK FCI LABWORK LABWORK FCI LAB WORK FCI LAB WORK FCI LABWORK LABWORK LABWORK Chief Complaint FCI LAB WOR K FCI LAB WORK FCI LAB WORK LABWORK FCI LABWORK LABWORK FCI LAB WORK FCI LAB WORK FCI LABWORK LABWORK LABWORK LABWORK LABWORK LABWORK Chief Complaint FCI LAB WOR K LABWORK FCI LABWORK LABWORK FCI LAB WORK FCI LAB WORK FCI LABWORK LABWORK LABWORK LABWORK LABWORK FCI LABWORK FCI LAB WORK LABWORK FCI LAB WORK FCI LAB WORK Chief Complaint FCI LAB WOR K LABWORK FCI LABWORK LABWORK FCI LAB WORK FCI LAB WORK FCI LABWORK LABWORK LABWORK LABWORK LABWORK FCI LABWORK FCI LAB WORK LABWORK FCI LAB WORK FCI LAB WORK FCI LABWORK Chief Complaint FCI LAB WOR K FCI LAB WORK FCI LABWORK LABWORK LABWORK LABWORK LABWORK FCI LABWORK FCI LAB WORK LABWORK FCI LAB WORK FCI LAB WORK FCI LABWORK NUSING HOME LAB WORK Chief Complaint FCI LAB WOR K FCI LABWORK LABWORK LABWORK LABWORK LABWORK FCI LABWORK FCI LAB WORK LABWORK FCI LAB WORK FCI LAB WORK FCI LABWORK NUSING HOME LAB WORK LABWORK Chief Complaint FCI LAB WOR K FCI LABWORK LABWORK LABWORK LABWORK LABWORK FCI LABWORK FCI LAB WORK LABWORK FCI LAB WORK FCI LAB WORK FCI LABWORK NUSING HOME LAB WORK FCI LABWORK LABWORK Chief Complaint LABWORK FCI LAB WORK FCI LAB WORK FCI LABWORK NUSING HOME LAB WORK FCI LABWORK LABWORK FCI LABWORK FCI LAB WORK LABWORK LABWORK Chief Complaint NUSING HOME LAB WORK FCI LABWORK LABWORK FCI LABWORK FCI LAB WORK LABWORK FCI LAB WORK LABWORK LABWORK Chief Complaint NUSING HOME LAB WORK [facility]CI LABWORK LABWORK [facility] LABWORK [facility] WORK LABWORK [facility] WORK LABWORK [facility] WORK LABWORK Chief Complaint FCI LABWORK LABWORK [facility]CI LABWORK [facility] WORK LABWORK [facility] WORK LABWORK [facility] LAB WORK LABWORK LABWORK Chief Complaint FCI LABWORK LABWORK FCI LABWORK FCI LAB WORK LABWORK FCI LAB WORK LABWORK FCI LAB WORK LABWORK LABWORK LABWORK Chief Complaint FCI LABWORK LABWORK FCI LABWORK FCI LAB WORK LABWORK FCI LAB WORK LABWORK FCI LAB WORK LABWORK LABWORK LABWORK LABWORK Chief Complaint FCI LABWORK LABWORK FCI LABWORK FCI LAB WORK LABWORK FCI LAB WORK LABWORK FCI LAB WORK LABWORK LABWORK FCI LAB WORK LABWORK LABWORK LABWORK Chief Complaint LABWORK FCI LABWORK FCI LAB WORK LABWORK FCI LAB WORK LABWORK FCI LAB WORK LABWORK LABWORK FCI LAB WORK LABWORK LABWORK LABWORK LABWORK LABWORK LABWORK LABWORK Chief Complaint FCI LABWORK FCI LAB WORK LABWORK FCI LAB WORK LABWORK FCI LAB WORK LABWORK LABWORK FCI LAB WORK LABWORK LABWORK LABWORK LABWORK LABWORK LABWORK LABWORK LABWORK Chief Complaint LABWORK FCI LAB WORK LABWORK FCI LAB WORK LABWORK LABWORK FCI LAB WORK LABWORK LABWORK LABWORK LABWORK LABWORK LABWORK LABWORK LABWORK LABWORK Chief Complaint FCI LABWORK LABWORK LABWORK LABWORK LABWORK FCI LABWORK FCI LAB WORK LABWORK FCI LAB WORK FCI LAB WORK FCI LABWORK NUSING HOME LAB WORK FCI LABWORK LABWORK FCI LABWORK FCI LAB WORK Chief Complaint Admit Date [facility]CI LAB WORK March 13, 2024 5:00am LABWORK March 14, 2024 5 :00am [facility]CI LAB WORK March 17 4 5:00am [facility]CI LAB WORK March 18 4 5:00am [facility]CI LAB WORK March 19 4:00am [facility]CI LAB WORK March 20 4 5:00am [facility]CI LAB WORK March 24 5:00am [facility]CI LAB WORK March 27 5:00am LABWORK March 31, 2024 5:00am [facility]CI LAB WORK April 04 4 5:00am LABWORK April 07, 2024 5 :00am [facility]CI LAB WORK April 10, 2024 5:00am [facility]CI LAB WORK April 14, 2024 5:00am FCI LAB WORK April 17 5:00am LABWORK April 21, 2024 5:00am [facility]CI LAB WORK April 24 4:00am LABWORK April 28, 2024 5:00am [facility]CI LAB WORK May 01 4:00am [facility]CI LAB WORK May 05 5:00am FCI LAB WORK May 08, 2024 5:00am [facility]CI LAB WORK May 09, 2024 4:00am LABWORK May 12, 2024 5: 00am [facility]CI LAB WORK May 15, 2024 5:00am [facility]CI LAB WORK May 19, 2024 4:00am FCI LAB WORK May 20, 2024 5:00am [facility]CI LAB WORK May 22, 2024 5:00am LABWORK May 26, 2024 5 :00am [facility]CI LAB WORK May 29, 2024 5:00am FCI LAB WORK June 02, 2024 5:00am [facility]CI LAB WORK June 05, 2024 5:00am LABWORK June 09, 2024 5 :00am FCI LAB WORK June 12, 2024 5:00am [facility]CI LAB WORK June 16 5:00am FCI LAB WORK June 19 5:00am LABWORK June 23, 2024 5:00am [facility]CI LAB WORK June 26 5:00am [facility]CI LAB WORK June 30 5:00am Chief Complaint Admit Date LABWORK April 07, 2024 5 :00am [facility]CI LAB WORK April 10, 2024 5:00am [facility]CI LAB WORK April 14, 2024 5:00am [facility]CI LAB WORK April 17 5:00am LABWORK April 21, 2024 5:00am [facility]CI LAB WORK April 24 4:00am LABWORK April 28, 2024 5:00am [facility]CI LAB WORK May 01 4:00am FCI LAB WORK May 05 5:00am FCI LAB WORK May 08, 2024 5:00am [facility]CI LAB WORK May 09, 2024 4:00am LABWORK May 12, 2024 5: 00am FCI LAB WORK May 15, 2024 5:00am FCI LAB WORK May 19, 2024 4:00am FCI LAB WORK May 20, 2024 5:00am FCI LAB WORK May 22, 2024 5:00am LABWORK May 26, 2024 5 :00am FCI LAB WORK May 29, 2024 5:00am FCI LAB WORK June 02, 2024 5:00am FCI LAB WORK June 05, 2024 5:00am LABWORK June 09, 2024 5 :00am [facility]CI LAB WORK June 12, 2024 5:00am FCI LAB WORK June 16 5:00am FCI LAB WORK June 19 5:00am LABWORK June 23, 2024 5:00am [facility]CI LAB WORK June 26 5:00am FCI LAB WORK June 30 5:00am FCI LAB WORK July 03 5:00am FCI LAB WORK July 07, 2024 4: 00am LABWORK July 11, 2024 5:00 am LABWORK July 14, 2024 5:0 0am [facility]CI LAB WORK July 17, 2024 4 :00am [facility]CI LAB WORK July 24, 2024 4 :00am Chief Complaint Admit Date FCI LAB WORK April 14, 2024 5:00am [facility]CI LAB WORK April 17 5:00am LABWORK April 21, 2024 5:00am [facility]CI LAB WORK April 24 4:00am LABWORK April 28, 2024 5:00am [facility]CI LAB WORK May 01 4:00am FCI LAB WORK May 05 5:00am FCI LAB WORK May 08, 2024 5:00am [facility]CI LAB WORK May 09, 2024 4:00am LABWORK May 12, 2024 5: 00am [facility]CI LAB WORK May 15, 2024 5:00am FCI LAB WORK May 19, 2024 4:00am FCI LAB WORK May 20, 2024 5:00am [facility]CI LAB WORK May 22, 2024 5:00am LABWORK May 26, 2024 5 :00am FCI LAB WORK May 29, 2024 5:00am FCI LAB WORK June 02, 2024 5:00am FCI LAB WORK June 05, 2024 5:00am LABWORK June 09, 2024 5 :00am [facility]CI LAB WORK June 12, 2024 5:00am FCI LAB WORK June 16 5:00am [facility]CI LAB WORK June 19 5:00am LABWORK June 23, 2024 5:00am [facility]CI LAB WORK June 26 5:00am FCI LAB WORK June 30 5:00am FCI LAB WORK July 03 5:00am FCI LAB WORK July 07, 2024 4: 00am LABWORK July 11, 2024 5:00 am LABWORK July 14, 2024 5:0 0am [facility]CI LAB WORK July 17, 2024 4 :00am [facility]CI LAB WORK July 24, 2024 4 :00am LABWORK July 25, 2024 5:0 0am Chief Complaint Admit Date FCI LAB WORK April 14, 2024 5:00am [facility]CI LAB WORK April 17 5:00am LABWORK April 21, 2024 5:00am FCI LAB WORK April 24 4:00am LABWORK April 28, 2024 5:00am [facility]CI LAB WORK May 01 4:00am FCI LAB WORK May 05 5:00am FCI LAB WORK May 08, 2024 5:00am [facility]CI LAB WORK May 09, 2024 4:00am LABWORK May 12, 2024 5: 00am [facility]CI LAB WORK May 15, 2024 5:00am [facility]CI LAB WORK May 19, 2024 4:00am FCI LAB WORK May 20, 2024 5:00am FCI LAB WORK May 22, 2024 5:00am LABWORK May 26, 2024 5 :00am [facility]CI LAB WORK May 29, 2024 5:00am FCI LAB WORK June 02, 2024 5:00am FCI LAB WORK June 05, 2024 5:00am LABWORK June 09, 2024 5 :00am FCI LAB WORK June 12, 2024 5:00am FCI LAB WORK June 16 5:00am FCI LAB WORK June 19 5:00am LABWORK June 23, 2024 5:00am FCI LAB WORK June 26 5:00am FCI LAB WORK June 30 5:00am FCI LAB WORK July 03 5:00am [facility]CI LAB WORK July 07, 2024 4: 00am LABWORK July 11, 2024 5:00 am LABWORK July 14, 2024 5:0 0am [facility]CI LAB WORK July 17, 2024 4 :00am [facility]CI LAB WORK July 21, 2024 5 :00am [facility]CI LAB WORK July 24, 2024 4 :00am LABWORK July 25, 2024 5:0 0am [facility]CI LAB WORK July 31, 2024 4 :00am Chief Complaint Admit Date FCI LAB WORK April 17 5:00am LABWORK April 21, 2024 5:00am [facility]CI LAB WORK April 24 4:00am LABWORK April 28, 2024 5:00am [facility]CI LAB WORK May 01 4:00am [facility]CI LAB WORK May 05 5:00am [facility]CI LAB WORK May 08, 2024 5:00am [facility]CI LAB WORK May 09, 2024 4:00am LABWORK May 12, 2024 5: 00am [facility]CI LAB WORK May 15, 2024 5:00am FCI LAB WORK May 19, 2024 4:00am FCI LAB WORK May 20, 2024 5:00am [facility]CI LAB WORK May 22, 2024 5:00am LABWORK May 26, 2024 5 :00am FCI LAB WORK May 29, 2024 5:00am FCI LAB WORK June 02, 2024 5:00am FCI LAB WORK June 05, 2024 5:00am LABWORK June 09, 2024 5 :00am FCI LAB WORK June 12, 2024 5:00am FCI LAB WORK June 16 5:00am FCI LAB WORK June 19 5:00am LABWORK June 23, 2024 5:00am FCI LAB WORK June 26 5:00am FCI LAB WORK June 30 5:00am FCI LAB WORK July 03 5:00am FCI LAB WORK July 07, 2024 4: 00am LABWORK July 11, 2024 5:00 am LABWORK July 14, 2024 5:0 0am [facility]CI LAB WORK July 17, 2024 4 :00am [facility]CI LAB WORK July 21, 2024 5 :00am FCI LAB WORK July 24, 2024 4 :00am LABWORK July 25, 2024 5:0 0am [facility]CI LAB WORK July 28, 2024 5 :00am [facility]CI LAB WORK July 31, 2024 4 :00am Chief Complaint Admit Date FCI LAB WORK April 24 4:00am LABWORK April 28, 2024 5:00am [facility]CI LAB WORK May 01 4:00am FCI LAB WORK May 05 5:00am FCI LAB WORK May 08, 2024 5:00am [facility]CI LAB WORK May 09, 2024 4:00am LABWORK May 12, 2024 5: 00am [facility]CI LAB WORK May 15, 2024 5:00am FCI LAB WORK May 19, 2024 4:00am FCI LAB WORK May 20, 2024 5:00am FCI LAB WORK May 22, 2024 5:00am LABWORK May 26, 2024 5 :00am FCI LAB WORK May 29, 2024 5:00am FCI LAB WORK June 02, 2024 5:00am FCI LAB WORK June 05, 2024 5:00am LABWORK June 09, 2024 5 :00am FCI LAB WORK June 12, 2024 5:00am FCI LAB WORK June 16 5:00am FCI LAB WORK June 19 5:00am LABWORK June 23, 2024 5:00am FCI LAB WORK June 26 5:00am FCI LAB WORK June 30 5:00am FCI LAB WORK July 03 5:00am FCI LAB WORK July 07, 2024 4: 00am LABWORK July 11, 2024 5:00 am LABWORK July 14, 2024 5:0 0am FCI LAB WORK July 17, 2024 4 :00am FCI LAB WORK July 21, 2024 5 :00am FCI LAB WORK July 24, 2024 4 :00am LABWORK July 25, 2024 5:0 0am [facility]CI LAB WORK July 28, 2024 5 :00am FCI LAB WORK July 31, 2024 4 :00am LABWORK August 04, 2024 5:0 0am Chief Complaint Admit Date FCI LAB WORK May 15, 2024 5:00am [facility]CI LAB WORK May 19, 2024 4:00am FCI LAB WORK May 20, 2024 5:00am [facility]CI LAB WORK May 22, 2024 5:00am LABWORK May 26, 2024 5 :00am FCI LAB WORK May 29, 2024 5:00am FCI LAB WORK June 02, 2024 5:00am FCI LAB WORK June 05, 2024 5:00am LABWORK June 09, 2024 5 :00am FCI LAB WORK June 12, 2024 5:00am FCI LAB WORK June 16 5:00am FCI LAB WORK June 19 5:00am LABWORK June 23, 2024 5:00am FCI LAB WORK June 26 5:00am FCI LAB WORK June 30 5:00am FCI LAB WORK July 03 5:00am FCI LAB WORK July 07, 2024 4: 00am LABWORK July 11, 2024 5:00 am LABWORK July 14, 2024 5:0 0am [facility]CI LAB WORK July 17, 2024 4 :00am FCI LAB WORK July 21, 2024 5 :00am FCI LAB WORK July 24, 2024 4 :00am LABWORK July 25, 2024 5:0 0am [facility]CI LAB WORK July 28, 2024 5 :00am [facility]CI LAB WORK July 31, 2024 4 :00am LABWORK August 04, 2024 5:0 0am LABWORK August 07, 2024 5:00 am FCI LAB WORK August 11, 2024 5: 00am FCI LAB WORK August 14, 2024 5 :00am [facility]CI LAB WORK August 18, 2024 5 :00am Chief Complaint Admit Date FCI LAB WORK May 20, 2024 5:00am FCI LAB WORK May 22, 2024 5:00am LABWORK May 26, 2024 5 :00am [facility]CI LAB WORK May 29, 2024 5:00am FCI LAB WORK June 02, 2024 5:00am FCI LAB WORK June 05, 2024 5:00am LABWORK June 09, 2024 5 :00am [facility]CI LAB WORK June 12, 2024 5:00am FCI LAB WORK June 16 5:00am FCI LAB WORK June 19 5:00am LABWORK June 23, 2024 5:00am FCI LAB WORK June 26 5:00am FCI LAB WORK June 30 5:00am FCI LAB WORK July 03 5:00am FCI LAB WORK July 07, 2024 4: 00am LABWORK July 11, 2024 5:00 am LABWORK July 14, 2024 5:0 0am [facility]CI LAB WORK July 17, 2024 4 :00am FCI LAB WORK July 21, 2024 5 :00am FCI LAB WORK July 24, 2024 4 :00am LABWORK July 25, 2024 5:0 0am [facility]CI LAB WORK July 28, 2024 5 :00am FCI LAB WORK July 31, 2024 4 :00am LABWORK August 04, 2024 5:0 0am LABWORK August 07, 2024 5:00 am FCI LAB WORK August 11, 2024 5: 00am FCI LAB WORK August 14, 2024 5 :00am [facility]CI LAB WORK August 18, 2024 5 :00am LABWORK August 28, 2024 5:0 0am Chief Complaint Admit Date FCI LAB WORK May 22, 2024 5:00am LABWORK May 26, 2024 5 :00am [facility]CI LAB WORK May 29, 2024 5:00am FCI LAB WORK June 02, 2024 5:00am [facility]CI LAB WORK June 05, 2024 5:00am LABWORK June 09, 2024 5 :00am FCI LAB WORK June 12, 2024 5:00am FCI LAB WORK June 16 5:00am FCI LAB WORK June 19 5:00am LABWORK June 23, 2024 5:00am FCI LAB WORK June 26 5:00am FCI LAB WORK June 30 5:00am FCI LAB WORK July 03 5:00am FCI LAB WORK July 07, 2024 4: 00am LABWORK July 11, 2024 5:00 am LABWORK July 14, 2024 5:0 0am FCI LAB WORK July 17, 2024 4 :00am FCI LAB WORK July 21, 2024 5 :00am FCI LAB WORK July 24, 2024 4 :00am LABWORK July 25, 2024 5:0 0am [facility]CI LAB WORK July 28, 2024 5 :00am FCI LAB WORK July 31, 2024 4 :00am LABWORK August 04, 2024 5:0 0am LABWORK August 07, 2024 5:00 am FCI LAB WORK August 11, 2024 5: 00am FCI LAB WORK August 14, 2024 5 :00am FCI LAB WORK August 18, 2024 5 :00am FCI LAB WORK August 21, 2024 5 :00am LABWORK August 28, 2024 5:0 0am LABWORK September 01, 2024 5:0 0am Chief Complaint Admit Date FCI LAB WORK June 05, 2024 5:00am LABWORK June 09, 2024 5 :00am [facility]CI LAB WORK June 12, 2024 5:00am FCI LAB WORK June 16 5:00am FCI LAB WORK June 19 5:00am LABWORK June 23, 2024 5:00am FCI LAB WORK June 26 5:00am FCI LAB WORK June 30 5:00am FCI LAB WORK July 03 5:00am FCI LAB WORK July 07, 2024 4: 00am LABWORK July 11, 2024 5:00 am LABWORK July 14, 2024 5:0 0am FCI LAB WORK July 17, 2024 4 :00am FCI LAB WORK July 21, 2024 5 :00am FCI LAB WORK July 24, 2024 4 :00am LABWORK July 25, 2024 5:0 0am FCI LAB WORK July 28, 2024 5 :00am FCI LAB WORK July 31, 2024 4 :00am LABWORK August 04, 2024 5:0 0am LABWORK August 07, 2024 5:00 am FCI LAB WORK August 11, 2024 5: 00am FCI LAB WORK August 14, 2024 5 :00am FCI LAB WORK August 18, 2024 5 :00am FCI LAB WORK August 21, 2024 5 :00am FCI LAB WORK August 25, 2024 4 :00am LABWORK August 28, 2024 5:0 0am LABWORK September 01, 2024 5:0 0am LABWORK September 04, 2024 5:00am Chief Complaint Admit Date FCI LAB WORK June 05, 2024 5:00am LABWORK June 09, 2024 5 :00am FCI LAB WORK June 12, 2024 5:00am FCI LAB WORK June 16 5:00am FCI LAB WORK June 19 5:00am LABWORK June 23, 2024 5:00am FCI LAB WORK June 26 5:00am FCI LAB WORK June 30 5:00am FCI LAB WORK July 03 5:00am FCI LAB WORK July 07, 2024 4: 00am LABWORK July 11, 2024 5:00 am LABWORK July 14, 2024 5:0 0am FCI LAB WORK July 17, 2024 4 :00am FCI LAB WORK July 21, 2024 5 :00am FCI LAB WORK July 24, 2024 4 :00am LABWORK July 25, 2024 5:0 0am FCI LAB WORK July 28, 2024 5 :00am FCI LAB WORK July 31, 2024 4 :00am LABWORK August 04, 2024 5:0 0am LABWORK August 07, 2024 5:00 am FCI LAB WORK August 11, 2024 5: 00am FCI LAB WORK August 14, 2024 5 :00am FCI LAB WORK August 18, 2024 5 :00am FCI LAB WORK August 21, 2024 5 :00am FCI LAB WORK August 25, 2024 4 :00am LABWORK August 28, 2024 5:0 0am LABWORK September 01, 2024 5:0 0am LABWORK September 04, 2024 5:00am LABWORK September 15, 2024 5:00a m Chief Complaint Admit Date FCI LAB WORK June 19 5:00am LABWORK June 23, 2024 5:00am FCI LAB WORK June 26 5:00am FCI LAB WORK June 30 5:00am FCI LAB WORK July 03 5:00am FCI LAB WORK July 07, 2024 4: 00am LABWORK July 11, 2024 5:00 am LABWORK July 14, 2024 5:0 0am FCI LAB WORK July 17, 2024 4 :00am FCI LAB WORK July 21, 2024 5 :00am FCI LAB WORK July 24, 2024 4 :00am LABWORK July 25, 2024 5:0 0am FCI LAB WORK July 28, 2024 5 :00am FCI LAB WORK July 31, 2024 4 :00am LABWORK August 04, 2024 5:0 0am LABWORK August 07, 2024 5:00 am FCI LAB WORK August 11, 2024 5: 00am FCI LAB WORK August 14, 2024 5 :00am FCI LAB WORK August 18, 2024 5 :00am FCI LAB WORK August 21, 2024 5 :00am FCI LAB WORK August 25, 2024 4 :00am LABWORK August 28, 2024 5:0 0am LABWORK September 01, 2024 5:0 0am LABWORK September 04, 2024 5:00am FCI LAB WORK September 08, 2024 4:00 am FCI LAB WORK September 11, 2024 5:00 am LABWORK September 15, 2024 5:00a m [facility]CI LAB WORK September 25, 2024 5:0 0am FCI LAB WORK September 30, 2024 4:0 0am Chief Complaint Admit Date FCI LAB WORK June 12, 2024 5:00am FCI LAB WORK June 16 5:00am FCI LAB WORK June 19 5:00am LABWORK June 23, 2024 5:00am FCI LAB WORK June 26 5:00am FCI LAB WORK June 30 5:00am FCI LAB WORK July 03 5:00am FCI LAB WORK July 07, 2024 4: 00am LABWORK July 11, 2024 5:00 am LABWORK July 14, 2024 5:0 0am FCI LAB WORK July 17, 2024 4 :00am FCI LAB WORK July 21, 2024 5 :00am FCI LAB WORK July 24, 2024 4 :00am LABWORK July 25, 2024 5:0 0am FCI LAB WORK July 28, 2024 5 :00am FCI LAB WORK July 31, 2024 4 :00am LABWORK August 04, 2024 5:0 0am LABWORK August 07, 2024 5:00 am FCI LAB WORK August 11, 2024 5: 00am FCI LAB WORK August 14, 2024 5 :00am FCI LAB WORK August 18, 2024 5 :00am FCI LAB WORK August 21, 2024 5 :00am FCI LAB WORK August 25, 2024 4 :00am LABWORK August 28, 2024 5:0 0am LABWORK September 01, 2024 5:0 0am LABWORK September 04, 2024 5:00am [facility]CI LAB WORK September 08, 2024 4:00 am LABWORK September 15, 2024 5:00a m Chief Complaint Admit Date FCI LAB WORK July 07, 2024 4: 00am LABWORK July 11, 2024 5:00 am LABWORK July 14, 2024 5:0 0am FCI LAB WORK July 17, 2024 4 :00am FCI LAB WORK July 21, 2024 5 :00am FCI LAB WORK July 24, 2024 4 :00am LABWORK July 25, 2024 5:0 0am FCI LAB WORK July 28, 2024 5 :00am FCI LAB WORK July 31, 2024 4 :00am LABWORK August 04, 2024 5:0 0am LABWORK August 07, 2024 5:00 am FCI LAB WORK August 11, 2024 5: 00am FCI LAB WORK August 14, 2024 5 :00am FCI LAB WORK August 18, 2024 5 :00am FCI LAB WORK August 21, 2024 5 :00am FCI LAB WORK August 25, 2024 4 :00am LABWORK August 28, 2024 5:0 0am LABWORK September 01, 2024 5:0 0am LABWORK September 04, 2024 5:00am FCI LAB WORK September 08, 2024 4:00 am FCI LAB WORK September 11, 2024 5:00 am LABWORK September 15, 2024 5:00a m [facility]CI LAB WORK September 18, 2024 5:0 0am FCI LAB WORK September 22, 2024 5:0 0am FCI LAB WORK September 25, 2024 5:0 0am FCI LAB WORK September 30, 2024 4:0 0am FCI LAB WORK October 02, 2024 5:0 0am [facility]CI LAB WORK October 09, 2024 5:0 0am Reason for Referral Specialty Diagnoses / Procedures Referred By Contac t Referred To Contact Urology Diagnoses Other fatigue Lanette Munguia DO [address] [place] [address] [facility] [place] [address] [facility] [place] [address] Referral ID Status Reason Start Date Expiration Date V isits Requested Visits Authorized [id number] Open Specialty Services Required 11/01/2021 11/01/2022 1 1 Scheduling Instructions [facility] - [address] , [address] [place], [place] [address] Specialty Diagnoses / Procedures Referred By Contac t Referred To Contact IP Unit Diagnoses Heel ulceration, left, with unspecified severity (HCC) Henry Hidalgo PA [address] [place] [address] [facility] [address] [place] [id number] Referral ID Status Reason Start Date Expiration Date V isits Requested Visits Authorized [id number] Open Specialty Services Required 12/22/2021 12/22/2022 1 1 Scheduling Instructions [facility] [address] [place] [id number] Comments Please use the parking lot located on [employer] or [employer]. There are handicap parking spots located in a small lot beside the wound care entrance off of [employer]. Please be advised there is a small incline from those handicap spots to our main door. Bring photo ID and insurance card to photocopy. Wear loose fitting clothing (to easily access wound). Bring list of medications (or can be sent by office). Check in at Registration for your first visit. Please call us directly with any questions [phone]. We look forward to helping you heal. Specialty Diagnoses / Procedures Referred By Contdesiree t Referred To Contact Radiology Diagnoses Left flank pain Calculus of ureter Procedures CT abdomen pelvis wo IV contrast Rebecca Buck MD [address] [place] [address] Referral ID Status Reason Start Date Expiration Date V isits Requested Visits Authorized [id number] Pending Review 08/13/2023 08/12/2024 1 1 Referral ID Status Reason Start Date Expiration Date Visits Re quested Visits Authorized [id number] Closed 08/17/2023 09/16/2023 1 1 Additional Source Comments Source Comments (unrecognize d section and content) In the event this informatio n is protected by the Federal Confidentiality of Alcohol and Drug Abuse Patient Records regulations: The Federal rules restrict any use of the information to criminally investigate or prosecute any alcohol or drug abuse patient[facility] the event this information is protected by the Federal Confidentiality of Alcohol and Drug Abuse Patient Records regulations: The Federal rules restrict any use of the information to criminally investigate or prosecute any alcohol or drug abuse patient[facility] (unrecognized sect ion and content) No Status Records FoundNo Status Records FoundNo Status Records FoundNo Status Records FoundNo Status Records FoundNo Status Records FoundNo Status Records FoundNo Status Records FoundNo Status Records FoundNo Status Records Found INFORMATION SOURCE (unrecogn ized section and content) DATE CREATED AUTHOR 05/20/2021 [facility] DATE CREATED AUTHOR AUTHOR'S ORGANIZ ATION 06/07/2021 [facility] DATE CREATED AUTHOR AUTHOR'S ORGANIZ ATION 08/02/[address] [facility] DATE CREATED AUTHOR AUTHOR'S ORGANIZ ATION 12/09/2021 [facility] DATE CREATED AUTHOR AUTHOR'S ORGANIZ ATION 12/29/2021 [facility] DATE CREATED AUTHOR AUTHOR'S ORGANIZ ATION 02/04/2022 [facility] DATE CREATED AUTHOR AUTHOR'S ORGANIZ ATION 03/03/2022 [facility] DATE CREATED AUTHOR AUTHOR'S ORGANIZ ATION 09/15/2023 [facility] DATE CREATED AUTHOR AUTHOR'S ORGANIZ ATION 01/04/2025 [facility] Reason for Visit (unrecogniz ed section and content) Reason Comments Missed Appointment Reason Comments Leg Swelling Blood clots Reason Comments Altered Mental Status Pt presents to ED via [facility] for complaint listed. Pt is from [facility]. Pt's LKW was 1000 hours today. Per EMS, pt had a - [place]. Pt denies CP, SOB, and N/V. Pt seems slow to respond, slightly confused at this time. Reason Comments [facility]el[facility] did xrays on left lower leg and and have concerns for possible osteomyelitis A&Ox2 to self and place, stated year 2022 preside Miss martini Reason Comments Fall Patient had unwitnes sed fall at [facility] landed on butt. Is on thinners, denies LOC, denies head injury has no complaints at this time Reason Comments New Patient Bilateral flank pain , hx of kidney stones Nephrolithiasis Reason Onset Date Comments Error (VOID this visit) 08/21/2023 Specialty Diagnoses / Procedures Referred By Contdesiree t Referred To Contact Radiology Diagnoses Left flank pain Calculus of ureter Procedures CT abdomen pelvis wo IV contrast Rebecca Buck MD [address] [place] [address] Referral ID Status Reason Start Date Expiration Date Visits Re quested Visits Authorized [id number] Closed 08/17/2023 09/16/2023 1 1 Reason Comments [...] July 07, 2024 End: July 07, 2024 Kaorn NOVAK MD Attending Provider Active Start: July [...] Status Dates Carlos NOVAK Attending Provider Active Thread Inspector Relationship Specialty Start Date End Date Mateus Burris [address] [place] [address] PCP - General Family Practice 11/12/19 Thread Inspector Relationship Specialty [place] [address] [place] [address] PCP - General Family Medicine 09/09/20 Thread Inspector Relationship Specialty [place] [address] [place] [address] PCP - General Family Medicine 09/09/20 Thread Inspector Relationship Specialty [place] [address] [place] [address] PCP - General Family Medicine 09/09/20 Thread Inspector Relationship Specialty Start Date End Date Carlos Cavazos MD [address] [facility] [address] [place] [address] PCP - General Internal Medicine 02/20/22 Team [...] Status: Inactive Member Role Status Dates Cliff Brunerlucía NOVAK Attending Provider Active Team Status: Inactive Member Role Status Dates Carlos NOVAK Attending Provider Active Dr. Monika Staley MD Primary Care Provider Active Thread Inspector Relationship Specialty Start Date End Date Carlos Cavazos [address] [place] [phone] PCP - General 12/21/21 Rebecca Buck MD [address] [place] [address] Surgeon Urology 06/25/23 Team Status: Inactive Member [...] NOVAK Attending Provider, Referring Provi lupillo Active Thread Inspector Relationship Specialty Start Date End Date Carlos Cavazos [address] [place] [phone] PCP - General 12/21/21 Rebecca Buck MD [address] [address] Surgeon Urology 06/25/23 Thread Inspector Relationship Specialty Start Date End Date Carlos Cavazos [address] [place] [phone] PCP - General 12/21/21 Rebecca Buck MD [address] [address] Surgeon Urology 06/25/23 Thread Inspector Relationship Specialty Start Date End Date Carlos Cavazos [address] [place] [address] [phone] PCP - General 12/21/21 Rebecca Buck MD [address] [address] Surgeon Urology 06/25/23 Thread Inspector Relationship Specialty Start Date End Date Carlos Cavazos [address] [place] [address] [phone] PCP - General 12/21/21 Rebecca Buck MD [address] [address] Surgeon Urology 06/25/23 Thread Inspector Relationship Specialty Start Date End Date Carlos Cavazos [address] [place] [address] [phone] PCP - General 12/21/21 Rebecca Buck MD [address] [address] Surgeon Urology 06/25/23 Thread Inspector Relationship Specialty Start Date End Date Carlos Cavazos [address] [place] [address] [phone] PCP - General 12/21/21 Rebecca Buck MD [address] [facility] [address] [place] [address] Surgeon Urology 06/25/23 Team Status: Inactive Member Role Status Dates Dr. Monika Staley MD Primary Care Provider Active Start: March 13, 2024 End: March 13, 2024 [facility] Attending Provider Active Start: March 13, [...] March 17, 2024 End: March 17, 2024 [facility] Attending Provider Active Start: March 17, 2024 End: March 17, 2024 Team Status: Inactive Member Role Status Dates Dr. Monika Staley MD Primary Care Provider Active Start: March 18, 2024 End: March 18, 2024 [facility] Attending Provider Active Start: March 18, [...] March 20, 2024 End: March 20, 2024 [facility] Attending Provider Active Start: March 20, [...] March 27, 2024 End: March 27, 2024 [facility] Attending Provider Active Start: March 27, [...] Provider Active Start: June 09, 2024 Carlos [facility]OAK Attending Provider Active Sta rt: June 09, [...] Care Provider Active Start: July 07, 2024 [facility] Attending Provider Active Start: July 07, [...] 102 (Given - Provider: Fabi Subramanian, RN) enoxaparin [...] Lisa Ashby, AYUSH)214 (Stopped - Provider: Lisa Ashby RN) 1026 [...] 816 (Given - Provider: Rosanne Hoff RN) 1025 [...] mg, Oral, ONCE Warfarin, 1 dose, On [facility] 10/29/21 at 1800, Indication of Use: Treatment-DVT/PE, [...] BE BASED ON THE PRIMARY CLINICAL RECORDS. [facility] provides no warranty or guarantee of the accuracy or completeness of information in this document.
[2025-01-06 09:53] LABS: Prothrombin Time (Protime)PT. 33.1 SECONDS (11.7-14.9)
[2025-01-09 04:07] LABS: KEPPRA (LEVETIRACETAM) 27.6 ug/mL (10.0-40.0)
== END ==
LOC: OLS.SANC 05:00
PROVIDERS: PCP General Practice
DX: R56.9 Unspecified convulsions (principal)
CPT/HCPCS: 36415; 80177; 85610

== ENCOUNTER → 2025-01-08 | Outpatient (REF) | payer MEDICARE, MEDICAID, SELFPAY ==
[2025-01-08 08:47] LABS: Prothrombin Time (Protime)PT. 24.5 SECONDS (11.7-14.9)
== END ==
LOC: OLS.SANC 05:00
PROVIDERS: PCP General Practice
DX: D64.9 Anemia, unspecified (principal); Z79.01 Long term (current) use of 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
CPT/HCPCS: 36415; 85610

== ENCOUNTER → 2025-01-12 | Outpatient (REF) | payer MEDICARE, MEDICAID, SELFPAY ==
[2025-01-12 09:42] LABS: Prothrombin Time (Protime)PT. 26.1 SECONDS (11.7-14.9)
[2025-01-14 16:09] LABS: KEPPRA (LEVETIRACETAM) 30.1 ug/mL (10.0-40.0)
== END ==
LOC: OLS.SANC 04:00
PROVIDERS: PCP General Practice
DX: Z79.899 Other long term (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 (principal)
CPT/HCPCS: 36415; 80177; 85610

== ENCOUNTER → 2025-01-15 | Outpatient (REF) | payer MEDICARE, MEDICAID, SELFPAY ==
--- OUTSIDE RECORDS SUMMARY | 2025-01-15 05:38 | XMS RPT_ITS | CCD ---
Author Organization [facility] Care Team Providers Care Fence Setter Name Role Phone Mateus Burris Primary Care [...] Unavailable Mateus Burris Primary Care Provider [phone] Monika Staley MD Primary Care Provider Monika [...] Unavailable Carlos Cavazos MD Primary Care Provider [phone] PROVIDER, UNKNOWN Primary Care Unavailable PROVIDER, UNKNOWN [...] VALLADARES, Dr. Monika Horner Primary Care Provider [facility] Attending Provider [phone] Carlos Nelson Attending Provider Jonh Pascual MD, [...] Unavail able Luís, Shiela Primary Care Unavailable KatCarlos Flood [...] Shiela Primary Care Unavailable Crisostomo OLS, Vicentebalkarolet Referring Unavailable Crisostomo OLS, Avisjeet Attending Unavailable [...] Luís, Shiela Primary Care Unavailable [facility] [place] Attending Tricia bustamantele Luís, Shiela Primary Care Unavailable Crisostomo OLS, Kvng Attending Unavailable Luís, Shiela Primary Care Unavailable Katsaros OLS, Carlos Attending Unavailable Luís, Shiela Primary Care Unavailable Mukkamalla OLS, Melindaer Attending Unavail able Luís, Shiela Primary Care Unavailable [place] OLS, Melindaer Attending Unavail able Luís, Shiela Primary Care Unavailable [place] OLS, eMlindaer Attending Unavail able Luís, Shiela Primary Care [...] Mahaveer Attending Unavail able Mukkamalla OLS, Mahaveer Attending Unavail [...] Luís, Shiela Primary Care Unavailable [facility] [place] Attending Unavai lable Luís, Shiela Primary Care Unavailable Katsaros OLS, Peter Attending Unavailable Luís, Shiela Primary Care Unavailable Katsaros OLS, Peter Attending Unavailable Luís, Shiela Primary Care Unavailable [facility] [place] Attending Unavai lable Luís, Shiela Primary Care Unavailable [facility] [place] Attending Unavai lable Luís, Shiela Primary Care Unavailable [facility] [place] Attending Unavai lable Luís, Shiela Primary Care Unavailable Katsaros OLS Peter Attending Unavailable Luís, Shiela Primary Care Unavailable [facility], [place] Attending Unavai lable Luís, Shiela Primary Care Unavailable [place] OLS, Mahaveer Referring Unavail able Mukkamalla OLS, Mahaveer Attending Unavail able Luís, Shiela Primary Care Unavailable [facility], [place] Attending Unavai lable Luís, Shiela Primary Care Unavailable [facility], [place] Attending Unavai lable Luís, Shiela Primary Care Unavailable Crisostomo OLSVicentebalkarolet Attending Unavailable Luís, Shiela Primary Care Unavailable [facility], [place] Attending Unavai lable Luís, Shiela Primary Care Unavailable Crisostomo OLSKvng Attending Unavailable Luís, Shiela Primary Care Unavailable Luís, Shiela Primary Care Unavailable [facility], [place] Attending Unavai lable Luís, Shiela Primary Care Unavailable Katsaros SCARLET, Carlos Attending Unavailable Crisostomo OLS, Vicentebalkarolet Attending Unavailable Luís, Shiela Primary Care Unavailable Luís, Shiela Primary Care Unavailable Katsaros OLS, Carlos Attending Unavailable Crisostomo OLSKvng Attending Unavailable Luís, Shiela [...] Luís, Shiela Primary Care Unavailable [facility] [place] Attending Unavai lable Luís, Shiela Primary Care [...] Luís, Shiela Primary Care Unavailable [place] OLS, Mahrayer Attending Unavail able Luís, Shiela Primary Care Unavailable Crisostomo OLS, Kvng Attending Unavailable Luís, Shiela Primary Care Unavailable Katsaros OLS, Peter Attending Unavailable Luís, Shiela Primary Care Unavailable [facility], [place] Attending Unavai lable Luís, Shiela Primary Care Unavailable [facility], [place] Attending Unavai lable Luís, Shiela Primary Care Unavailable [facility], [place] Attending Unavai lable Luís, Shiela Primary Care Unavailable Katsaros OLS, Peter Attending Unavailable Luís, Shiela Primary Care Unavailable Crisostomo OLS, Vicentebaljeet Attending Unavailable Luís, Shiela Primary Care Unavailable Crisostomo OLS, Babsigifredojeet Referring Unavailable Crisostomo OLS, Babbaljeet Attending Unavailable [...] (1 source) Latex Drug Allergy 0 Rash [facility] (8 sources) Cortisone Drug Allergy 2 [facility] (7 sources) Latex Allergy to substance 0 Rash [facility] Medications Current Medications Medication Drug Class(es) Dates Sig (Normalized) Sig (Original) Acetaminophen (10 sources) Start: 10-21-2021 acetaminophen (TYLENOL) tablet 650 mg Start: 09-14-2021 acetaminophen (TYLENOL) 325 MG tablet 650 mg every 6 hours as needed 0 09/14/2021 Active take 2 tablets by mo [facility] every eight hours acetaminophen (TYLENOL) [...] on above: Take 1 capsule by mo [facility] three times daily. Complete Multi-Vitamin [...] Active docusate sodium 50 mg / sennosides, prison 8.6 mg oral tablet (1 source) Start: [...] Units subcutaneously with meals and at bedtime. Maltese Panax Ginseng 100 MG CAPS (8 sources) Maltese Panax Ginseng 100 MG CAPS Quantity: 0 Refills: 0 Ordered: 06-Nov-2019 DO Active Maltese Panax Ginseng 100 MG Oral Capsule (4 sources) Maltese Panax Ginseng 100 MG Oral Capsule Refills: 0 Active Maltese Panax Gin mayuri 100 MG Oral Capsule Refills: 0 DO Active Maltese Panax Ginseng 100 MG Oral Capsule (2 sources) Maltese Panax Gin mayuri 100 MG Oral Capsule [...] once daily. Pentoxifylline (1 source) Blood Viscosity Bias Binding Cutter PENTOXIFYLLINE ORAL Take by mouth. 0 Active Comment on above: Take by mouth. petrolatum 0.41 mg/mg topical ointment (1 source) Start : 08-20 white petrolatum (AQUAPHOR) 41 % topical ointment Apply to affected area once daily. 0 08/20/2021 Active Comment on above: Apply to affected ar ea once daily. polyethylene glycol 3350 81067 mg powder for oral solution (1 source) [...] Onset: 10-09-2012 10-09-2012 Congestive heart failure; nonhypertensive (16 sources) Congestive heart failure; Translations: [Congestive heart failure, unspecified] Onset: 09-19-2024 Chronic Comment on above: CHF (congestive hear t failure); Deficiency and other anemia (2 sources) Anemia, unspecified; Translations: [Anemia, unspecified] Onset: 09-19-2024 Episodic Delirium, dementia, and amnestic and other [...] Onset: 02-15-2022 02-15-2022 Episodic Hyperplasia of prostate (6 sources) Benign prostatic hypertrophy with outflow obstruction; [...] Onset: 10-21-2021 Chronic Other aftercare (4 sources) group home (current) use of anticoagulants; Translations: [group home (current) use of anticoagulants] Onset: 10-21-2021 Episodic Other aftercare (1 source) Drug therapy finding; Translations: [group home (current) use of anticoagulants] Episodic Other aftercare (2 sources) Other skilled nursing (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; Translations: [Other skilled nursing (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] Onset: 07-11-2024 Episodic Other circulatory disease (2 sources) Presence [...] Chronic Other nervous system disorders (2 sources) Presence of cerebrospinal fluid drainage device; [...] initial encounter] Onset: 05-19-2019 02-16-2022 Episodic Other circulatory disease (2 sources) Personal [...] Coag (PPP) [Relative time] 2.3 {INR} Normal [facility] Comment on above: Order Comment: 411.1 Performed By: #### L 300.3900 ####[facility] [address] [place], [place], [id number] PT Coag (PPP) [Time] 26.1 s High 11.7-14.9 [facility] Comment on above: Order Comment: 411.1 Performed By: #### L 300.3900 ####[facility] [address] [place], [address] KEPPRA (LEVETIRACETAM)on KEPPRA 27.6 ug/mL Normal 10.0-40.0 [facility] Comment on above: Order Comment: 411.1 Result Comment: Perf ormed at: - [facility] [address] [place], [place] [id number] Director: Alpesh Vázquez MD, Phone: [phone] Performed By: #### L 3310.0000, L300.3900 ####[facility] [address] [place], [address] Prothrombin Time w/INRon INR Coag (PPP) [Relative time] 2.2 {INR} Normal [facility] Comment on above: Order Comment: 411.1 Performed By: #### L 300.3900 ####[facility] [address] [place], [address] PT Coag (PPP) [Time] 24.5 s High 11.7-14.9 [facility] Comment on above: Order Comment: 411.1 Performed By: #### L 300.3900 ####[facility] [address] [place], [address] Prothrombin Time w/INRon INR Coag (PPP) [Relative time] 3.2 {INR} Normal [facility] Comment on above: Order Comment: 411.1 Performed By: #### L 3310.0000, L300.3900 ####[facility] [address] [place], [address] PT Coag (PPP) [Time] 33.1 s High 11.7-14.9 [facility] Comment on above: Order Comment: 411.1 Performed By: #### L 3310.0000, L300.3900 ####[facility] [address] [place], [address] Prothrombin Time w/INRon INR Coag (PPP) [Relative time] 2.7 {INR} Normal [facility] Comment on above: Order Comment: 411.1 Performed By: #### L 300.3900 ####[facility] [address] [place], [address] PT Coag (PPP) [Time] 29.1 s High 11.7-14.9 [facility] Comment on above: Order Comment: 411.1 Performed By: #### L 300.3900 ####[facility] [address] [place], [address] KEPPRA (LEVETIRACETAM)on KEPPRA 31.8 ug/mL Normal 10.0-40.0 [facility] Comment on above: Order Comment: 411-1 Result Comment: Perf ormed at: [facility] [id number] Director: Alpesh Vázquez MD, Phone: [phone] Performed By: #### L 3310.0000, L300.3900 ####[facility] [address] [place], [address] KEPPRA (LEVETIRACETAM)on KEPPRA 33.3 ug/mL Normal 10.0-40.0 [facility] Comment on above: Order Comment: 411.1 Result Comment: Perf ormed at: [facility] [employer] [id number] Director: Alpesh Vázquez MD, Phone: [phone] Performed By: #### L 3310.0000 ####[facility] [address] [place], [address] Prothrombin Time w/INRon INR Coag (PPP) [Relative time] 3.3 {INR} Normal [facility] Comment on above: Order Comment: 411-1 Performed By: #### L 3310.0000, L300.3900 ####[facility] [address] [place], [address] PT Coag (PPP) [Time] 34.0 s High 11.7-14.9 [facility] Comment on above: Order Comment: 411-1 Performed By: #### L 3310.0000, L300.3900 ####[facility] [address] [place], [address] Prothrombin Time w/INRon INR Coag (PPP) [Relative time] 2.8 {INR} Normal [facility] Comment on above: Order Comment: 411.1 Performed By: #### L 300.3900 ####[facility] [address] [place], [address] PT Coag (PPP) [Time] 30.0 s High 11.7-14.9 [facility] Comment on above: Order Comment: 411.1 Performed By: #### L 300.3900 ####[facility] [address] [place], [address] Basic Metabolic Profile (BMP )on 12-24-2024 BUN/CRE 19.2 RATIO Normal - [facility] Comment on above: Order Comment: 411-1 Performed By: #### L 500.2500, L100.0500 ####[facility] [address] [place], [address] Calcium [Mass/Vol] 8.8 mg/dL Normal 7.6-11.0 [facility] Comment on above: Order Comment: 411-1 Performed By: #### L 500.2500, L100.0500 ####[facility] [address] [place], [address] Chloride [Moles/Vol] 103 mmol/L Normal 98-108 [facility] Comment on above: Order Comment: 411-1 Performed By: #### L 500.2500, L100.0500 ####[facility] [address] [place], [address] CO2 [Moles/Vol] 23.7 mmol/L Normal 21.0-32.0 [facility] Comment on above: Order Comment: 411-1 Performed By: #### L 500.2500, L100.0500 ####[facility] [address] [place], [address] Creatinine [Mass/Vol] 0.82 mg/dL Normal 0.70-1.20 [facility] Comment on above: Order Comment: 411-1 Performed By: #### L 500.2500, L100.0500 ####[facility] [address] [place], [address] GAP 13 Normal 5-15 [facility] Comment on above: Order Comment: 411-1 Performed By: #### L 500.2500, L100.0500 ####[facility] [address] [place], [address] GFR/1.73 sq M.predicted among non-blacks MDRD (S/P/Bld) [Vol rate/Area] 93 mL/min/{1.73_m2} Normal >60 [facility] Comment on above: Order Comment: 411-1 Result Comment: mL/m in/1.73m2 CKD-EPI Creatinine Equation (2020) Performed By: #### L 500.2500, L100.0500 ####[facility] [address] [place], [address] Glucose [Mass/Vol] 88 mg/dL Normal 70-99 [facility] Comment on above: Order Comment: 411-1 Performed By: #### L 500.2500, L100.0500 ####[facility] [address] [place], [address] Potassium [Moles/Vol] 4.2 mmol/L Normal 3.3-5.1 [facility] Comment on above: Order Comment: 411-1 Performed By: #### L 500.2500, L100.0500 ####[facility] [address] [place], [address] Sodium [Moles/Vol] 139 mmol/L Normal 133-145 [facility] Comment on above: Order Comment: 411-1 Performed By: #### L 500.2500, L100.0500 ####[facility] [address] [place], [address] Urea nitrogen [Mass/Vol] 16 mg/dL Normal 4-19 [facility] Comment on above: Order Comment: 411-1 Performed By: #### L 500.2500, L100.0500 ####[facility] [address] [place], [address] CBC-Complete Blood Cnt No Di ffon 12-24-2024 Erythrocyte distribution width (RBC) [Ratio] 15.4 % High 11.6-14.6 [facility] Comment on above: Order Comment: 411-1 Performed By: #### L 500.2500, L100.0500 ####[facility] [address] [place], [address] Hematocrit (Bld) [Volume fraction] 39.8 % Low 40-54 [facility] Comment on above: Order Comment: 411-1 Performed By: #### L 500.2500, L100.0500 ####[facility] [address] [place], [address] Hemoglobin (Bld) [Mass/Vol] 12.4 g/dL Low 13.0-16.5 [facility] Comment on above: Order Comment: 411-1 Performed By: #### L 500.2500, L100.0500 ####[facility] [address] [place], [address] MCH (RBC) [Entitic mass] 26.6 pg Low 27.0-32.0 [facility] Comment on above: Order Comment: 411-1 Performed By: #### L 500.2500, L100.0500 ####[facility] [address] [place], [address] MCHC (RBC) [Mass/Vol] 31.2 g/dL Low 32-36 [facility] Comment on above: Order Comment: 411-1 Performed By: #### L 500.2500, L100.0500 ####[facility] [address] [place], [address] MCV (RBC) [Entitic vol] 85.4 fL Normal 80-94 [facility] Comment on above: Order Comment: 411-1 Performed By: #### L 500.2500, L100.0500 ####[facility] [address] [place], [address] Platelet mean volume (Bld) [Entitic vol] 10.4 fL Normal 6.2-12.0 [facility] Comment on above: Order Comment: 411-1 Performed By: #### L 500.2500, L100.0500 ####[facility] [address] [place], [address] Platelets (Bld) [#/Vol] 290 10*3/uL Normal 150-450 [facility] Comment on above: Order Comment: 411-1 Performed By: #### L 500.2500, L100.0500 ####[facility] [address] [place], [address] RBC (Bld) [#/Vol] 4.66 10*6/uL Normal 4.6-6.2 [place] Comment on above: Order Comment: 411-1 Performed By: #### L 500.2500, L100.0500 ####[facility] [address] [place], [address] RDW SD 48.1 fl High 35.1-43.9 [facility] Comment on above: Order Comment: 411-1 Performed By: #### L 500.2500, L100.0500 ####[facility] [address] [place], [address] WBC (Bld) [#/Vol] 16.6 10*3/uL High 4.4-11.0 [facility] Comment on above: Order Comment: 411-1 Performed By: #### L 500.2500, L100.0500 ####[facility] [address] [place], [address] Prothrombin Time w/INRon INR Coag (PPP) [Relative time] 2.6 {INR} Normal [facility] Comment on above: Order Comment: 411.1 Performed By: #### L 300.3900 ####[facility] [address] [place], [address] PT Coag (PPP) [Time] 28.8 s High 11.7-14.9 [facility] Comment on above: Order Comment: 411.1 Performed By: #### L 300.3900 ####[facility] [address] [place], [address] Prothrombin Time w/INRon INR Coag (PPP) [Relative time] 2.4 {INR} Normal [facility] Comment on above: Order Comment: 411.1 Performed By: #### L 300.3900 ####[facility] [address] [place], [address] PT Coag (PPP) [Time] 26.7 s High 11.7-14.9 [facility] Comment on above: Order Comment: 411.1 Performed By: #### L 300.3900 ####[facility] [address] [place], [address] Prothrombin Time w/INRon INR Coag (PPP) [Relative time] 2.3 {INR} Normal [facility] Comment on above: Order Comment: 411.1 Performed By: #### L 300.3900 ####[facility] [address] [place], [address] PT Coag (PPP) [Time] 25.7 s High 11.7-14.9 [facility] Comment on above: Order Comment: 411.1 Performed By: #### L 300.3900 ####[facility] [address] [place], [address] Prothrombin Time w/INRon INR Coag (PPP) [Relative time] 2.2 {INR} Normal [facility] Comment on above: Order Comment: 411-1 Performed By: #### L 300.3900 ####[facility] [address] [place], [address] PT Coag (PPP) [Time] 24.7 s High 11.7-14.9 [facility] Comment on above: Order Comment: 411-1 Performed By: #### L 300.3900 ####[facility] [address] [place], [address] Prothrombin Time w/INRon INR Coag (PPP) [Relative time] 2.2 {INR} Normal [facility] Comment on above: Order Comment: 411.1 Performed By: #### L 300.3900 ####[facility] [address] [place], [address] PT Coag (PPP) [Time] 25.0 s High 11.7-14.9 [facility] Comment on above: Order Comment: 411.1 Performed By: #### L 300.3900 ####[facility] [address] [place], [address] Prothrombin Time w/INRon INR Coag (PPP) [Relative time] 2.3 {INR} Normal [facility] Comment on above: Order Comment: 411.1 Performed By: #### L 300.3900 ####[facility] [address] [place], [address] PT Coag (PPP) [Time] 25.9 s High 11.7-14.9 [facility] Comment on above: Order Comment: 411.1 Performed By: #### L 300.3900 ####[facility] [address] [place], [address] Prothrombin Time w/INRon INR Coag (PPP) [Relative time] 2.5 {INR} Normal [facility] Comment on above: Order Comment: 411.1 Performed By: #### L 300.3900 ####[facility] [address] [place], [address] PT Coag (PPP) [Time] 27.3 s High 11.7-14.9 [facility] Comment on above: Order Comment: 411.1 Performed By: #### L 300.3900 ####[facility] [address] [place], [address] Prothrombin Time w/INRon INR Coag (PPP) [Relative time] 2.3 {INR} Normal [facility] Comment on above: Order Comment: 411-1 Performed By: #### L 300.3900 ####[facility] [address] [place], [address] PT Coag (PPP) [Time] 26.0 s High 11.7-14.9 [facility] Comment on above: Order Comment: 411-1 Performed By: #### L 300.3900 ####[facility] [address] [place], [address] Prothrombin Time w/INRon INR Coag (PPP) [Relative time] 3.1 {INR} Normal [facility] Comment on above: Order Comment: 411-1 Performed By: #### L 300.3900 ####[facility] [address] [place], [address] PT Coag (PPP) [Time] 32.8 s High 11.7-14.9 [facility] Comment on above: Order Comment: 411-1 Performed By: #### L 300.3900 ####[facility] [address] [place], [address] Prothrombin Time w/INRon INR Coag (PPP) [Relative time] 3.3 {INR} Normal [facility] Comment on above: Order Comment: 411.1 Performed By: #### L 300.3900 ####[facility] [address] [place], [address] PT Coag (PPP) [Time] 34.3 s High 11.7-14.9 [facility] Comment on above: Order Comment: 411.1 Performed By: #### L 300.3900 ####[facility] [address] [place], [address] Prothrombin Time w/INRon INR Coag (PPP) [Relative time] 2.8 {INR} Normal [facility] Comment on above: Order Comment: 411.2 Performed By: #### L 300.3900 ####[facility] [address] [place], [address] PT Coag (PPP) [Time] 30.0 s High 11.7-14.9 [facility] Comment on above: Order Comment: 411.2 Performed By: #### L 300.3900 ####[facility] [address] [place], [address] Prothrombin Time w/INRon INR Coag (PPP) [Relative time] 3.0 {INR} Normal [facility] Comment on above: Order Comment: 411.2 Performed By: #### L 300.3900 ####[facility] [address] [place], [address] PT Coag (PPP) [Time] 32.0 s High 11.7-14.9 [facility] Comment on above: Order Comment: 411.2 Performed By: #### L 300.3900 ####[facility] [address] [place], [address] Prothrombin Time w/INRon INR Coag (PPP) [Relative time] 2.9 {INR} Normal [facility] Comment on above: Order Comment: 411.2 Performed By: #### L 300.3900 ####[facility] [address] [place], [address] PT Coag (PPP) [Time] 30.7 s High 11.7-14.9 [facility] Comment on above: Order Comment: 411.2 Performed By: #### L 300.3900 ####[facility] [address] [place], [address] Prothrombin Time w/INRon INR Coag (PPP) [Relative time] 2.2 {INR} Normal [facility] Comment on above: Order Comment: 411.2 Performed By: #### L 300.3900 ####[facility] [address] [place], [address] PT Coag (PPP) [Time] 24.7 s High 11.7-14.9 [facility] Comment on above: Order Comment: 411.2 Performed By: #### L 300.3900 ####[facility] [address] [place], [address] Prothrombin Time w/INRon INR Coag (PPP) [Relative time] 2.6 {INR} Normal [facility] Comment on above: Order Comment: 411.2 Performed By: #### L 300.3900 ####[facility] [address] [place], [address] PT Coag (PPP) [Time] 28.7 s High 11.7-14.9 [facility] Comment on above: Order Comment: 411.2 Performed By: #### L 300.3900 ####[facility] [address] [place], [address] Prothrombin Time w/INRon INR Coag (PPP) [Relative time] 3.1 {INR} Normal [facility] Comment on above: Order Comment: 411.2 Performed By: #### L 300.3900 ####[facility] [address] [place], [address] PT Coag (PPP) [Time] 33.0 s High 11.7-14.9 [facility] Comment on above: Order Comment: 411.2 Performed By: #### L 300.3900 ####[facility] [address] [place], [address] Prothrombin Time w/INRon INR Coag (PPP) [Relative time] 3.0 {INR} Normal [facility] Comment on above: Order Comment: 411-2 Performed By: #### L 300.3900 ####[facility] [address] [place], [address] PT Coag (PPP) [Time] 31.4 s High 11.7-14.9 [facility] Comment on above: Order Comment: 411-2 Performed By: #### L 300.3900 ####[facility] [address] [place], [address] International normalized rat io (INR) calculationOrdered By: Karon Corrales on 10-30-2024 INR Coag (Bld) [Relative time] 2.4 {INR} [facility] Prothrombin Time w/INRon INR Coag (PPP) [Relative time] 2.4 {INR} Normal [facility] Comment on above: Performed By: #### L 300.3900 ####[facility] [address] [place], [place], [phone] PT Coag (PPP) [Time] 26.3 s High 11.7-14.9 [facility] Comment on above: Performed By: #### L 300.3900 ####[facility] [address] [place], [place], [phone] Prothrombin timeOrdered By: Karon Corrales on 10-30-2024 PT Coag (PPP) [Time] 26.3 s High 11.7-14.9 [facility] International normalized rat io (INR) calculationOrdered By: Karon Corrales on 10-27-2024 INR Coag (Bld) [Relative time] 2.2 {INR} [facility] Prothrombin Time w/INRon INR Coag (PPP) [Relative time] 2.2 {INR} Normal [facility] Comment on above: Order Comment: 411.2 Performed By: #### L 300.3900 ####[facility] [address] [place], [place], [phone] Prothrombin timeOrdered By: Karon Corrales on 10-27-2024 PT Coag (PPP) [Time] 24.5 s High 11.7-14.9 [facility] Comment on above: Order Comment: 411.2 Performed By: #### L 300.3900 ####[facility] [address] [place], [address] International normalized rat io (INR) calculationOrdered By: Karon Corrales on 10-23-2024 INR Coag (Bld) [Relative time] 2.5 {INR} [facility] Prothrombin Time w/INRon INR Coag (PPP) [Relative time] 2.5 {INR} Normal [facility] Comment on above: Order Comment: 411.2 Performed By: #### L 300.3900 ####[facility] [address] [place], [place], [phone] PT Coag (PPP) [Time] 27.9 s High 11.7-14.9 [facility] Comment on above: Order Comment: 411.2 Performed By: #### L 300.3900 ####[facility] [address] [place], [place], [phone] Prothrombin timeOrdered By: Karon Corrales on 10-23-2024 PT Coag (PPP) [Time] 27.9 s High 11.7-14.9 [facility] International normalized rat io (INR) calculationOrdered By: Karon Corrales on 10-20-2024 INR Coag (Bld) [Relative time] 3.1 {INR} [facility] Prothrombin Time w/INRon INR Coag (PPP) [Relative time] 3.1 {INR} Normal [facility] Comment on above: Order Comment: 411.2 Performed By: #### L 300.3900 ####[facility] [address] [place], [address] PT Coag (PPP) [Time] 32.8 s High 11.7-14.9 [facility] Comment on above: Order Comment: 411.2 Performed By: #### L 300.3900 ####[facility] [address] [place], [address] Prothrombin timeOrdered By: Karon Corrales on 10-20-2024 PT Coag (PPP) [Time] 32.8 s High 11.7-14.9 [facility] International normalized rat io (INR) calculationOrdered By: Karon Corrales on 10-16-2024 INR Coag (Bld) [Relative time] 2.8 {INR} [facility] Prothrombin Time w/INRon INR Coag (PPP) [Relative time] 2.8 {INR} Normal [facility] Comment on above: Order Comment: 411.2 Performed By: #### L 300.3900 ####[facility] [address] [place], [address] PT Coag (PPP) [Time] 30.4 s High 11.7-14.9 [facility] Comment on above: Order Comment: 411.2 Performed By: #### L 300.3900 ####[facility] [address] [place], [phone] Prothrombin timeOrdered By: Karon Corrales on 10-16-2024 PT Coag (PPP) [Time] 30.4 s High 11.7-14.9 [facility] International normalized rat io (INR) calculationOrdered By: Carlos Cavazos on 10-13-2024 INR Coag (Bld) [Relative time] 1.9 {INR} [facility] Prothrombin Time w/INRon INR Coag (PPP) [Relative time] 1.9 {INR} Normal [facility] Comment on above: Order Comment: 411-2 Performed By: #### L 300.3900 ####[facility] [address] [place], [address] PT Coag (PPP) [Time] 22.4 s High 11.7-14.9 [facility] Comment on above: Order Comment: 411-2 Performed By: #### L 300.3900 ####[facility] [address] [place], [place], [phone] Prothrombin timeOrdered By: Carlos Cavazos on 10-13-2024 PT Coag (PPP) [Time] 22.4 s High 11.7-14.9 [facility] International normalized rat io (INR) calculationOrdered By: Karon Corrales on 10-09-2024 INR Coag (Bld) [Relative time] 3.0 {INR} [facility] Prothrombin Time w/INRon INR Coag (PPP) [Relative time] 3.0 {INR} Normal [facility] Comment on above: Order Comment: 411.2 Performed By: #### L 300.3900 ####[facility] [address] [place], [address] Prothrombin timeOrdered By: Karon Corrales on 10-09-2024 PT Coag (PPP) [Time] 31.8 s High 11.7-14.9 [facility] Comment on above: Order Comment: 411.2 Performed By: #### L 300.3900 ####[facility] [address] [place], [place], [phone] International normalized rat io (INR) calculationOrdered By: Carlos Cavazos on 10-06-2024 INR Coag (Bld) [Relative time] 2.7 {INR} [facility] Prothrombin Time w/INRon INR Coag (PPP) [Relative time] 2.7 {INR} Normal [facility] Comment on above: Order Comment: 411-2 Performed By: #### L 300.3900 ####[facility] [address] [place], [place], [phone] PT Coag (PPP) [Time] 29.6 s High 11.7-14.9 [facility] Comment on above: Order Comment: 411-2 Performed By: #### L 300.3900 ####[facility] [address] [place], [address] Prothrombin timeOrdered By: Carlos Cavazos on 10-06-2024 PT Coag (PPP) [Time] 29.6 s High 11.7-14.9 [facility] International normalized rat io (INR) calculationOrdered By: Karon Corrales on 10-02-2024 INR Coag (Bld) [Relative time] 2.3 {INR} [facility] Prothrombin Time w/INRon INR Coag (PPP) [Relative time] 2.3 {INR} Normal [facility] Comment on above: Order Comment: 411.2 Performed By: #### L 300.3900 ####[facility] [address] [place], [address] PT Coag (PPP) [Time] 26.0 s High 11.7-14.9 [facility] Comment on above: Order Comment: 411.2 Performed By: #### L 300.3900 ####[facility] [address] [place], [address] Prothrombin timeOrdered By: Karon Corrales on 10-02-2024 PT Coag (PPP) [Time] 26.0 s High 11.7-14.9 [facility] International normalized rat io (INR) calculationOrdered By: Karon Corrales on 09-30-2024 INR Coag (Bld) [Relative time] 3.1 {INR} [facility] Prothrombin Time w/INRon INR Coag (PPP) [Relative time] 3.1 {INR} Normal [facility] Comment on above: Order Comment: 411.2 Performed By: #### L 300.3900 ####[facility] [address] [place], [address] PT Coag (PPP) [Time] 32.6 s High 11.7-14.9 [facility] Comment on above: Order Comment: 411.2 Performed By: #### L 300.3900 ####[facility] [address] [place], [place], [phone] Prothrombin timeOrdered By: Karon Corrales on 09-30-2024 PT Coag (PPP) [Time] 32.6 s High 11.7-14.9 [facility] International normalized rat io (INR) calculationOrdered By: Karon Corrales on 09-25-2024 INR Coag (Bld) [Relative time] 2.4 {INR} [facility] Prothrombin Time w/INRon INR Coag (PPP) [Relative time] 2.4 {INR} Normal [facility] Comment on above: Order Comment: 411.2 Performed By: #### L 300.3900 ####[facility] [address] [place], [address] Prothrombin timeOrdered By: Karon Corrales on 09-25-2024 PT Coag (PPP) [Time] 26.7 s High 11.7-14.9 [facility] Comment on above: Order Comment: 411.2 Performed By: #### L 300.3900 ####[facility] [address] [place], [place], [phone] International normalized rat io (INR) calculationOrdered By: Karon Corrales on 09-22-2024 INR Coag (Bld) [Relative time] 2.5 {INR} [facility] Prothrombin Time w/INRon INR Coag (PPP) [Relative time] 2.5 {INR} Normal [facility] Comment on above: Order Comment: 411.2 Performed By: #### L 300.3900 ####[facility] [address] [place], [place], [phone] Prothrombin timeOrdered By: Karon Corrales on 09-22-2024 PT Coag (PPP) [Time] 27.4 s High 11.7-14.9 [facility] Comment on above: Order Comment: 411.2 Performed By: #### L 300.3900 ####[facility] [address] [place], [address] International normalized rat io (INR) calculationOrdered By: Karon Corrales on 09-18-2024 INR Coag (Bld) [Relative time] 2.2 {INR} [facility] Prothrombin Time w/INRon INR Coag (PPP) [Relative time] 2.2 {INR} Normal [facility] Comment on above: Order Comment: 411.2 Performed By: #### L 300.3900 ####[facility] [address] [place], [place], [phone] PT Coag (PPP) [Time] 25.1 s High 11.7-14.9 [facility] Comment on above: Order Comment: 411.2 Performed By: #### L 300.3900 ####[facility] [address] [place], [place], [phone] Prothrombin timeOrdered By: Karon Corrales on 09-18-2024 PT Coag (PPP) [Time] 25.1 s High 11.7-14.9 [facility] International normalized rat io (INR) calculationOrdered By: Carlos Cavazos on 09-15-2024 INR Coag (Bld) [Relative time] 2.4 {INR} [facility] Prothrombin Time w/INRon INR Coag (PPP) [Relative time] 2.4 {INR} Normal [facility] Comment on above: Order Comment: 411-2 Performed By: #### L 300.3900 ####[facility] [address] [place], [place], [phone] Prothrombin timeOrdered By: Carlos Cavazos on 09-15-2024 PT Coag (PPP) [Time] 26.3 s High 11.7-14.9 [facility] Comment on above: Order Comment: 411-2 Performed By: #### L 300.3900 ####[facility] [address] [place], [place], [phone] International normalized rat io (INR) calculationOrdered By: Karon Corrales on 09-11-2024 INR Coag (Bld) [Relative time] 2.0 {INR} [facility] Prothrombin Time w/INRon INR Coag (PPP) [Relative time] 2.0 {INR} Normal [facility] Comment on above: Order Comment: 411.2 Performed By: #### L 300.3900 ####[facility] [address] [place], [place], [phone] PT Coag (PPP) [Time] 22.9 s High 11.7-14.9 [facility] Comment on above: Order Comment: 411.2 Performed By: #### L 300.3900 ####[facility] [address] [place], [place], [phone] Prothrombin timeOrdered By: Karon Corrales on 09-11-2024 PT Coag (PPP) [Time] 22.9 s High 11.7-14.9 [facility] International normalized rat io (INR) calculationOrdered By: Karon Corrales on 09-08-2024 INR Coag (Bld) [Relative time] 2.0 {INR} [facility] Prothrombin Time w/INRon INR Coag (PPP) [Relative time] 2.0 {INR} Normal [facility] Comment on above: Order Comment: 411.2 Performed By: #### L 300.3900 ####[facility] [address] [place], [place], [phone] PT Coag (PPP) [Time] 22.8 s High 11.7-14.9 [facility] Comment on above: Order Comment: 411.2 Performed By: #### L 300.3900 ####[facility] [address] [place], [place], [phone] Prothrombin timeOrdered By: Karon Corrales on 09-08-2024 PT Coag (PPP) [Time] 22.8 s High 11.7-14.9 [facility] International normalized rat io (INR) calculationOrdered By: Carlos Cavazos on 09-04-2024 INR Coag (Bld) [Relative time] 1.7 {INR} [facility] Prothrombin Time w/INRon INR Coag (PPP) [Relative time] 1.7 {INR} Normal [facility] Comment on above: Order Comment: 411-2 Performed By: #### L 300.3900 ####[facility] [address] [place], [address] PT Coag (PPP) [Time] 20.8 s High 11.7-14.9 [facility] Comment on above: Order Comment: 411-2 Performed By: #### L 300.3900 ####[facility] [address] [place], [phone] Prothrombin timeOrdered By: Carlos Cavazos on 09-04-2024 PT Coag (PPP) [Time] 20.8 s High 11.7-14.9 [facility] International normalized rat io (INR) calculationOrdered By: Carlos Cavazos on 09-01-2024 INR Coag (Bld) [Relative time] 2.9 {INR} [facility] Prothrombin Time w/INRon INR Coag (PPP) [Relative time] 2.9 {INR} Normal [facility] Comment on above: Order Comment: 411-2 Performed By: #### L 300.3900 ####[facility] [address] [place], [address] PT Coag (PPP) [Time] 30.7 s High 11.7-14.9 [facility] Comment on above: Order Comment: 411-2 Performed By: #### L 300.3900 ####[facility] [address], [phone] Prothrombin timeOrdered By: Carlos Cavazos on 09-01-2024 PT Coag (PPP) [Time] 30.7 s High 11.7-14.9 [facility] International normalized rat io (INR) calculationOrdered By: Carlos Cavazos on 08-28-2024 INR Coag (Bld) [Relative time] 2.4 {INR} [facility] Prothrombin Time w/INRon INR Coag (PPP) [Relative time] 2.4 {INR} Normal [facility] Comment on above: Order Comment: 411-2 Performed By: #### L 300.3900 ####[facility] [address] [place], [place], [phone] Prothrombin timeOrdered By: Carlos Cavazos on 08-28-2024 PT Coag (PPP) [Time] 26.7 s High 11.7-14.9 [facility] Comment on above: Order Comment: 411-2 Performed By: #### L 300.3900 ####[facility] [address] [place], [place], [phone] International normalized rat io (INR) calculationOrdered By: Karon Corrales on 08-25-2024 INR Coag (Bld) [Relative time] 1.8 {INR} [facility] Prothrombin Time w/INRon INR Coag (PPP) [Relative time] 1.8 {INR} Normal [facility] Comment on above: Order Comment: 411.2 Performed By: #### L 300.3900 ####[facility] [address] [place], [place], [phone] PT Coag (PPP) [Time] 21.6 s High 11.7-14.9 [facility] Comment on above: Order Comment: 411.2 Performed By: #### L 300.3900 ####[facility] [address] [place], [address] Prothrombin timeOrdered By: Karon Corrales on 08-25-2024 PT Coag (PPP) [Time] 21.6 s High 11.7-14.9 [facility] International normalized rat io (INR) calculationOrdered By: Karon Corrales on 08-21-2024 INR Coag (Bld) [Relative time] 1.7 {INR} [facility] PSA, total screeningOrdered By: Karon Corrales on 08-21-2024 Prostate Specific Antigen Screen 0.52 ng/mL 0.02-4.00 [facility] Comment on above: This test was perfor med using the [employer] tPSA method. Measured values of a patient sample can vary depending on the testing procedure used. PSA values determined on patient samples by different testing procedures cannot be used interchangeably. If there is a change in PSA assays while monitoring therapy, sequential testing should be performed to confirm baseline values. PSA,Total - Annual Screenon 08-21-2024 PSA,TOT SCREEN 0.52 ng/mL Normal 0.02-4.00 [facility] Comment on above: Order Comment: 411.2 [...] values. Performed By: #### L 501.9910, L300.3900 ####[facility] [address], [address] Prothrombin Time w/INRon INR Coag (PPP) [Relative time] 1.7 {INR} Normal [facility] Comment on above: Order Comment: 411.2 Performed By: #### L 501.9910, L300.3900 ####[facility] [address] [place], [address] Prothrombin timeOrdered By: Karon Corrales on 08-21-2024 PT Coag (PPP) [Time] 20.1 s High 11.7-14.9 [facility] Comment on above: Order Comment: 411.2 Performed By: #### L 501.9910, L300.3900 ####[facility] [address] [place], [place], [phone] International normalized rat io (INR) calculationOrdered By: Karon Corrales on 08-18-2024 INR Coag (Bld) [Relative time] 3.0 {INR} [facility] Prothrombin Time w/INRon INR Coag (PPP) [Relative time] 3.0 {INR} Normal [facility] Comment on above: Order Comment: 411.2 Performed By: #### L 300.3900 ####[facility] [address] [place], [place], [phone] PT Coag (PPP) [Time] 31.4 s High 11.7-14.9 [facility] Comment on above: Order Comment: 411.2 Performed By: #### L 300.3900 ####[facility] [address] [place], [place], [phone] Prothrombin timeOrdered By: Karon Corrales on 08-18-2024 PT Coag (PPP) [Time] 31.4 s High 11.7-14.9 [facility] International normalized rat io (INR) calculationOrdered By: Karon Corrales on 08-14-2024 INR Coag (Bld) [Relative time] 2.4 {INR} [facility] Prothrombin Time w/INRon INR Coag (PPP) [Relative time] 2.4 {INR} Normal [facility] Comment on above: Order Comment: 411.2 Performed By: #### L 300.3900 ####[facility] [address] [place], [address] PT Coag (PPP) [Time] 26.6 s High 11.7-14.9 [facility] Comment on above: Order Comment: 411.2 Performed By: #### L 300.3900 ####[facility] [address] [place], [place], [phone] Prothrombin timeOrdered By: Karon Corrales on 08-14-2024 PT Coag (PPP) [Time] 26.6 s High 11.7-14.9 [facility] International normalized rat io (INR) calculationOrdered By: Karon Corrales on 08-11-2024 INR Coag (Bld) [Relative time] 3.1 {INR} [facility] Prothrombin Time w/INRon INR Coag (PPP) [Relative time] 3.1 {INR} Normal [facility] Comment on above: Order Comment: 411.2 Performed By: #### L 300.3900 ####[facility] [address] [place], [address] PT Coag (PPP) [Time] 32.4 s High 11.7-14.9 [facility] Comment on above: Order Comment: 411.2 Performed By: #### L 300.3900 ####[facility] [address] [place], [address] Prothrombin timeOrdered By: Karon Corrales on 08-11-2024 PT Coag (PPP) [Time] 32.4 s High 11.7-14.9 [facility] International normalized rat io (INR) calculationOrdered By: Carlos Cavazos on 08-07-2024 INR Coag (Bld) [Relative time] 2.8 {INR} [facility] Prothrombin Time w/INRon INR Coag (PPP) [Relative time] 2.8 {INR} Normal [facility] Comment on above: Order Comment: 411-2 Performed By: #### L 300.3900 ####[facility] [address] [place], [address] PT Coag (PPP) [Time] 30.3 s High 11.7-14.9 [facility] Comment on above: Order Comment: 411-2 Performed By: #### L 300.3900 ####[facility] [address] [place], [address] Prothrombin timeOrdered By: Carlos Cavazos on 08-07-2024 PT Coag (PPP) [Time] 30.3 s High 11.7-14.9 [facility] International normalized rat io (INR) calculationOrdered By: Carlos Cavazos on 08-04-2024 INR Coag (Bld) [Relative time] 1.9 {INR} [facility] Prothrombin Time w/INRon INR Coag (PPP) [Relative time] 1.9 {INR} Normal [facility] Comment on above: Order Comment: 411-2 Performed By: #### L 300.3900 ####[facility] [address] [place], [address] PT Coag (PPP) [Time] 22.1 s High 11.7-14.9 [facility] Comment on above: Order Comment: 411-2 Performed By: #### L 300.3900 ####[facility] [address] [place], [address] Prothrombin timeOrdered By: Carlos Cavazos on 08-04-2024 PT Coag (PPP) [Time] 22.1 s High 11.7-14.9 [facility] International normalized rat io (INR) calculationOrdered By: Karon Corrales on 07-31-2024 INR Coag (Bld) [Relative time] 3.2 {INR} [facility] Prothrombin Time w/INRon INR Coag (PPP) [Relative time] 3.2 {INR} Normal [facility] Comment on above: Order Comment: 411.2 Performed By: #### L 300.3900 ####[facility] [address] [place], [address] PT Coag (PPP) [Time] 33.5 s High 11.7-14.9 [facility] Comment on above: Order Comment: 411.2 Performed By: #### L 300.3900 ####[facility] [address] [place], [place], [phone] Prothrombin timeOrdered By: Karon Corrales on 07-31-2024 PT Coag (PPP) [Time] 33.5 s High 11.7-14.9 [facility] International normalized rat io (INR) calculationOrdered By: Karon Corrales on 07-28-2024 INR Coag (Bld) [Relative time] 2.7 {INR} [facility] Prothrombin Time w/INRon INR Coag (PPP) [Relative time] 2.7 {INR} Normal [facility] Comment on above: Order Comment: 411.2 Performed By: #### L 300.3900 ####[facility] [address] [place], [place], [phone] PT Coag (PPP) [Time] 29.6 s High 11.7-14.9 [facility] Comment on above: Order Comment: 411.2 Performed By: #### L 300.3900 ####[facility] [address] [place], [place], [phone] Prothrombin timeOrdered By: Karon Corrales on 07-28-2024 PT Coag (PPP) [Time] 29.6 s High 11.7-14.9 [facility] International normalized rat io (INR) calculationOrdered By: Carlos Cavazos on 07-25-2024 INR Coag (Bld) [Relative time] 3.0 {INR} [facility] Prothrombin Time w/INRon INR Coag (PPP) [Relative time] 3.0 {INR} Normal [facility] Comment on above: Order Comment: 411-2 Performed By: #### L 300.3900 ####[facility] [address] [place], [address] Prothrombin timeOrdered By: Carlos Cavazos on 07-25-2024 PT Coag (PPP) [Time] 32.1 s High 11.7-14.9 [facility] Comment on above: Order Comment: 411-2 Performed By: #### L 300.3900 ####[facility] [address] [place], [place], [phone] International normalized rat io (INR) calculationOrdered By: Karon Corrales on 07-24-2024 INR Coag (Bld) [Relative time] 3.4 {INR} [facility] Prothrombin Time w/INRon INR Coag (PPP) [Relative time] 3.4 {INR} Normal [facility] Comment on above: Order Comment: 411.2 Performed By: #### L 300.3900 ####[facility] [address] [place], [address] Prothrombin timeOrdered By: Karon Corrales on 07-24-2024 PT Coag (PPP) [Time] 35.4 s High 11.7-14.9 [facility] Comment on above: Order Comment: 411.2 Performed By: #### L 300.3900 ####[facility] [address] [place], [place], [phone] International normalized rat io (INR) calculationOrdered By: Karon Corrales on 07-21-2024 INR Coag (Bld) [Relative time] 1.6 {INR} [facility] Prothrombin Time w/INRon INR Coag (PPP) [Relative time] 1.6 {INR} Normal [facility] Comment on above: Order Comment: 411.2 Performed By: #### L 300.3900 ####[facility] [address] [place], [place], [phone] PT Coag (PPP) [Time] 19.6 s High 11.7-14.9 [facility] Comment on above: Order Comment: 411.2 Performed By: #### L 300.3900 ####[facility] [address] [place], [phone] Prothrombin timeOrdered By: Karon Corrales on 07-21-2024 PT Coag (PPP) [Time] 19.6 s High 11.7-14.9 [facility] International normalized rat io (INR) calculationOrdered By: Karon Corrales on 07-17-2024 INR Coag (Bld) [Relative time] 2.9 {INR} [facility] Prothrombin Time w/INRon INR Coag (PPP) [Relative time] 2.9 {INR} Normal [facility] Comment on above: Order Comment: 411.2 Performed By: #### L 300.3900 ####[facility] [address] [place], [place], [phone] PT Coag (PPP) [Time] 31.1 s High 11.7-14.9 [facility] Comment on above: Order Comment: 411.2 Performed By: #### L 300.3900 ####[facility] [address] [place], [place], [phone] Prothrombin timeOrdered By: Karon Corrales on 07-17-2024 PT Coag (PPP) [Time] 31.1 s High 11.7-14.9 [facility] International normalized rat io (INR) calculationOrdered By: Carlos Cavazos on 07-14-2024 INR Coag (Bld) [Relative time] 2.5 {INR} [facility] Prothrombin Time w/INRon INR Coag (PPP) [Relative time] 2.5 {INR} Normal [facility] Comment on above: Order Comment: 411-2 Performed By: #### L 300.3900 ####[facility] [address] [place], [place], [phone] PT Coag (PPP) [Time] 27.5 s High 11.7-14.9 [facility] Comment on above: Order Comment: 411-2 Performed By: #### L 300.3900 ####[facility] [address] [place], [address] Prothrombin timeOrdered By: Carlos Cavazos on 07-14-2024 PT Coag (PPP) [Time] 27.5 s High 11.7-14.9 [facility] International normalized rat io (INR) calculationOrdered By: Carlos Cavazos on 07-11-2024 INR Coag (Bld) [Relative time] 2.5 {INR} [facility] Prothrombin Time w/INRon INR Coag (PPP) [Relative time] 2.5 {INR} Normal [facility] Comment on above: Performed By: #### L 300.3900 ####[facility] [address] [place], [address] PT Coag (PPP) [Time] 27.7 s High 11.7-14.9 [facility] Comment on above: Performed By: #### L 300.3900 ####[facility] [address] [place], [place], [phone] Prothrombin timeOrdered By: Carlos Cavazos on 07-11-2024 PT Coag (PPP) [Time] 27.7 s High 11.7-14.9 [facility] Prothrombin Time w/INRon INR Normal [facility] Comment on above: Order Comment: 411.2 Result Comment: QNS TUBE NOT FILLED Performed By: #### L 300.3900 ####[facility] [address] [place], [place], [phone] PROTIME Normal 11.7-14.9 [facility] Comment on above: Order Comment: 411.2 Result Comment: QNS TUBE NOT FILLED Performed By: #### L 300.3900 ####[facility] [address] [place], [place], [phone] International normalized rat io (INR) calculationOrdered By: Kvng Crisostomo on 07-07-2024 INR Coag (Bld) [Relative time] 2.5 {INR} [facility] Prothrombin Time w/INRon INR Coag (PPP) [Relative time] 2.5 {INR} Normal [facility] Comment on above: Order Comment: 411.2 Performed By: #### L 300.3900 ####[facility] [address] [place], [address] PT Coag (PPP) [Time] 27.2 s High 11.7-14.9 [facility] Comment on above: Order Comment: 411.2 Performed By: #### L 300.3900 ####[facility] [address] [place], [address] Prothrombin timeOrdered By: Kvng Crisostomo on 07-07-2024 PT Coag (PPP) [Time] 27.2 s High 11.7-14.9 [facility] [employer] normalized rat io (INR) calculationOrdered By: Kvng Crisostomo on 07-03-2024 INR Coag (Bld) [Relative time] 2.5 {INR} [facility] Prothrombin Time w/INRon INR Coag (PPP) [Relative time] 2.5 {INR} Normal [facility] Comment on above: Order Comment: 411.2 Performed By: #### L 300.3900 ####[facility] [address] [place], [address] PT Coag (PPP) [Time] 27.2 s High 11.7-14.9 [facility] Comment on above: Order Comment: 411.2 Performed By: #### L 300.3900 ####[facility] [address] [place], [address] Prothrombin timeOrdered By: Kvng Crisostomo on 07-03-2024 PT Coag (PPP) [Time] 27.2 s High 11.7-14.9 [facility] International normalized rat io (INR) calculationOrdered By: Babjulyet Andressa on 06-30-2024 INR Coag (Bld) [Relative time] 2.4 {INR} [facility] Prothrombin Time w/INRon INR Coag (PPP) [Relative time] 2.4 {INR} Normal [facility] Comment on above: Order Comment: 411.2 Performed By: #### L 300.3900 ####[facility] [address] [place], [place], [phone]) PT Coag (PPP) [Time] 26.8 s High 11.7-14.9 [facility] Comment on above: Order Comment: 411.2 Performed By: #### L 300.3900 ####[facility] [address] [place], [place], [phone] Prothrombin timeOrdered By: Kvng Crisostomo on 06-30-2024 PT Coag (PPP) [Time] 26.8 s High 11.7-14.9 [facility] International normalized rat io (INR) calculationOrdered By: Kvng Crisostomo on 06-26-2024 INR Coag (Bld) [Relative time] 2.5 {INR} [facility] Prothrombin Time w/INRon INR Coag (PPP) [Relative time] 2.5 {INR} Normal [facility] Comment on above: Order Comment: 411.2 Performed By: #### L 300.3900 ####[facility] [address] [place], [place], [phone] PT Coag (PPP) [Time] 27.5 s High 11.7-14.9 [facility] Comment on above: Order Comment: 411.2 Performed By: #### L 300.3900 ####[facility] [address] [place], [place], [phone] Prothrombin timeOrdered By: Kvng Crisostomo on 06-26-2024 PT Coag (PPP) [Time] 27.5 s High 11.7-14.9 [facility] [employer] normalized rat io (INR) calculationOrdered By: Carlos Cavazos on 06-23-2024 INR Coag (Bld) [Relative time] 2.8 {INR} [facility] Prothrombin Time w/INRon INR Coag (PPP) [Relative time] 2.8 {INR} Normal [facility] Comment on above: Order Comment: 411-2 Performed By: #### L 300.3900 ####[facility] [address] [place], [address] PT Coag (PPP) [Time] 29.7 s High 11.7-14.9 [facility] Comment on above: Order Comment: 411-2 Performed By: #### L 300.3900 ####[facility] [address] [place], [address] Prothrombin timeOrdered By: Carlos Cavazos on 06-23-2024 PT Coag (PPP) [Time] 29.7 s High 11.7-14.9 [facility] [employer] normalized rat io (INR) calculationOrdered By: Kvng Crisostomo on 06-19-2024 INR Coag (Bld) [Relative time] 2.6 {INR} [facility] Prothrombin Time w/INRon INR Coag (PPP) [Relative time] 2.6 {INR} Normal [facility] Comment on above: Order Comment: 411.2 Performed By: #### L 300.3900 ####[facility] [address] [place], [address] PT Coag (PPP) [Time] 28.6 s High 11.7-14.9 [facility] Comment on above: Order Comment: 411.2 Performed By: #### L 300.3900 ####[facility] [address] [place], [address] Prothrombin timeOrdered By: Kvng Crisostomo on 06-19-2024 PT Coag (PPP) [Time] 28.6 s High 11.7-14.9 [facility] [employer] normalized rat io (INR) calculationOrdered By: Kvng Crisostomo on 06-16-2024 INR Coag (Bld) [Relative time] 2.5 {INR} [facility] Prothrombin Time w/INRon INR Coag (PPP) [Relative time] 2.5 {INR} Normal [facility] Comment on above: Order Comment: 411.2 Performed By: #### L 300.3900 ####[facility] [address] [place], [address] PT Coag (PPP) [Time] 27.3 s High 11.7-14.9 [facility] Comment on above: Order Comment: 411.2 Performed By: #### L 300.3900 ####[facility] [address] [place], [address] Prothrombin timeOrdered By: Kvng Crisostomo on 06-16-2024 PT Coag (PPP) [Time] 27.3 s High 11.7-14.9 [facility] [employer] normalized rat io (INR) calculationOrdered By: Kvng Crisostomo on 06-12-2024 INR Coag (Bld) [Relative time] 2.1 {INR} [facility] Prothrombin Time w/INRon INR Coag (PPP) [Relative time] 2.1 {INR} Normal [facility] Comment on above: Order Comment: 411.2 Performed By: #### L 300.3900 ####[facility] [address] [place], [address] PT Coag (PPP) [Time] 24.0 s High 11.7-14.9 [facility] Comment on above: Order Comment: 411.2 Performed By: #### L 300.3900 ####[facility] [address] [place], [address] Prothrombin timeOrdered By: Kvng Crisostomo on 06-12-2024 PT Coag (PPP) [Time] 24.0 s High 11.7-14.9 [facility] [employer] normalized rat io (INR) calculationOrdered By: Carlos Cavazos on 06-09-2024 INR Coag (Bld) [Relative time] 1.5 {INR} [facility] Prothrombin Time w/INRon INR Coag (PPP) [Relative time] 1.5 {INR} Normal [facility] Comment on above: Order Comment: 411-2 Performed By: #### L 300.3900 ####[facility] [address] [place], [address] PT Coag (PPP) [Time] 18.0 s High 11.7-14.9 [facility] Comment on above: Order Comment: 411-2 Performed By: #### L 300.3900 ####[facility] [address], [address] Prothrombin timeOrdered By: Carlos Cavazos on 06-09-2024 PT Coag (PPP) [Time] 18.0 s High 11.7-14.9 [facility] [employer] normalized rat io (INR) calculationOrdered By: Kvng Crisostomo on 06-05-2024 INR Coag (Bld) [Relative time] 2.8 {INR} [facility] Prothrombin Time w/INRon INR Coag (PPP) [Relative time] 2.8 {INR} Normal [facility] Comment on above: Order Comment: 411.2 Performed By: #### L 300.3900 ####[facility] [address], [address] PT Coag (PPP) [Time] 30.3 s High 11.7-14.9 [facility] Comment on above: Order Comment: 411.2 Performed By: #### L 300.3900 ####[facility] [address] [place], [address] Prothrombin timeOrdered By: Kvng Crisostomo on 06-05-2024 PT Coag (PPP) [Time] 30.3 s High 11.7-14.9 [facility] International normalized rat io (INR) calculationOrdered By: Kvng Crisostomo on 06-02-2024 INR Coag (Bld) [Relative time] 2.6 {INR} [facility] Prothrombin Time w/INRon INR Coag (PPP) [Relative time] 2.6 {INR} Normal [facility] Comment on above: Order Comment: 411.2 Performed By: #### L 300.3900 ####[facility] [address], [address] PT Coag (PPP) [Time] 28.6 s High 11.7-14.9 [facility] Comment on above: Order Comment: 411.2 Performed By: #### L 300.3900 ####[facility] [address], [address] Prothrombin timeOrdered By: Kvng Crisostomo on 06-02-2024 PT Coag (PPP) [Time] 28.6 s High 11.7-14.9 [facility] International normalized rat io (INR) calculationOrdered By: Kvng Crisostomo on 05-29-2024 INR Coag (Bld) [Relative time] 2.5 {INR} [facility] Prothrombin Time w/INRon INR Coag (PPP) [Relative time] 2.5 {INR} Normal [facility] Comment on above: Order Comment: 411.2 Performed By: #### L 300.3900 ####[facility] [address], [address] PT Coag (PPP) [Time] 27.7 s High 11.7-14.9 [facility] Comment on above: Order Comment: 411.2 Performed By: #### L 300.3900 ####[facility] [address] [place], [address] Prothrombin timeOrdered By: Kvng Crisostomo on 05-29-2024 PT Coag (PPP) [Time] 27.7 s High 11.7-14.9 [facility] International normalized rat io (INR) calculationOrdered By: Carlos Cavazos on 05-26-2024 INR Coag (Bld) [Relative time] 2.2 {INR} [facility] Prothrombin Time w/INRon INR Coag (PPP) [Relative time] 2.2 {INR} Normal [facility] Comment on above: Order Comment: 411-2 Performed By: #### L 300.3900 ####[facility] [address] [place], [place], [phone] PT Coag (PPP) [Time] 24.5 s High 11.7-14.9 [facility] Comment on above: Order Comment: 411-2 Performed By: #### L 300.3900 ####[facility] [address] [place], [phone] Prothrombin timeOrdered By: Carlos Cavazos on 05-26-2024 PT Coag (PPP) [Time] 24.5 s High 11.7-14.9 [facility] International normalized rat io (INR) calculationOrdered By: Kvng Crisostomo on 05-22-2024 INR Coag (Bld) [Relative time] 2.8 {INR} [facility] Prothrombin Time w/INRon INR Coag (PPP) [Relative time] 2.8 {INR} Normal [facility] Comment on above: Order Comment: 411.2 Performed By: #### L 300.3900 ####[facility] [address] [place], [address] PT Coag (PPP) [Time] 30.3 s High 11.7-14.9 [facility] Comment on above: Order Comment: 411.2 Performed By: #### L 300.3900 ####[facility] [address] [place], [phone] Prothrombin timeOrdered By: Kvng Crisostomo on 05-22-2024 PT Coag (PPP) [Time] 30.3 s High 11.7-14.9 [facility] [employer] normalized rat io (INR) calculationOrdered By: Kvng Crisostomo on 05-20-2024 INR Coag (Bld) [Relative time] 4.0 {INR} High [facility] Comment on above: CRITICAL VALUE CASEY D TO [id number]/14/25 08 Diana Mattson.RESULTS READ BACK BY SAME. Prothrombin Time w/INRon INR Coag (PPP) [Relative time] 4.0 {INR} Invalid Interpretation Code [facility] Comment on above: Order Comment: 411.2 Result Comment: CRIT ICAL VALUE CALLED TO [id number]/14/25 [facility] Diana Mattson.RESULTS READ BACK BY SAME. Performed By: #### L 300.3900 ####[facility] [address] [place], [place], [phone] PT Coag (PPP) [Time] 39.9 s High 11.7-14.9 [facility] Comment on above: Order Comment: 411.2 Performed By: #### L 300.3900 ####[facility] [address] [place], [place], [phone] Prothrombin timeOrdered By: Kvng Crisostomo on 05-20-2024 PT Coag (PPP) [Time] 39.9 s High 11.7-14.9 [facility] [employer] normalized rat io (INR) calculationOrdered By: Kvng Crisostomo on 05-19-2024 INR Coag (Bld) [Relative time] 3.4 {INR} [facility] Prothrombin Time w/INRon INR Coag (PPP) [Relative time] 3.4 {INR} Normal [facility] Comment on above: Order Comment: 411.2 Performed By: #### L 300.3900 ####[facility] [address] [place], [place], [phone]) PT Coag (PPP) [Time] 35.4 s High 11.7-14.9 [facility] Comment on above: Order Comment: 411.2 Performed By: #### L 300.3900 ####[facility] [address] [place], [place], [phone] Prothrombin timeOrdered By: Kvng Crisostomo on 05-19-2024 PT Coag (PPP) [Time] 35.4 s High 11.7-14.9 [facility] [employer] normalized rat io (INR) calculationOrdered By: Kvng Crisostomo on 05-15-2024 INR Coag (Bld) [Relative time] 2.6 {INR} [facility] Prothrombin Time w/INRon INR Coag (PPP) [Relative time] 2.6 {INR} Normal [facility] Comment on above: Order Comment: 411.2 Performed By: #### L 300.3900 ####[facility] [address] [place], [address] PT Coag (PPP) [Time] 28.7 s High 11.7-14.9 [facility] Comment on above: Order Comment: 411.2 Performed By: #### L 300.3900 ####[facility] [address] [place], [address] Prothrombin timeOrdered By: Kvng Crisostomo on 05-15-2024 PT Coag (PPP) [Time] 28.7 s High 11.7-14.9 [facility] [employer] normalized rat io (INR) calculationOrdered By: Carlos Cavazos on 05-12-2024 INR Coag (Bld) [Relative time] 2.1 {INR} [facility] Prothrombin Time w/INRon INR Coag (PPP) [Relative time] 2.1 {INR} Normal [facility] Comment on above: Order Comment: 411-2 Performed By: #### L 300.3900 ####[facility] [address] [place], [address] PT Coag (PPP) [Time] 24.1 s High 11.7-14.9 [facility] Comment on above: Order Comment: 411-2 Performed By: #### L 300.3900 ####[facility] [address] [place], [place], [phone] Prothrombin timeOrdered By: Carlos Cavazos on 05-12-2024 PT Coag (PPP) [Time] 24.1 s High 11.7-14.9 [facility] [employer] normalized rat io (INR) calculationOrdered By: Kvng Crisostomo on 05-09-2024 INR Coag (Bld) [Relative time] 3.4 {INR} [facility] Prothrombin Time w/INRon INR Coag (PPP) [Relative time] 3.4 {INR} Normal [facility] Comment on above: Order Comment: 411.2 Performed By: #### L 300.3900 ####[facility] [address] [place], [place], [phone] PT Coag (PPP) [Time] 35.4 s High 11.7-14.9 [facility] Comment on above: Order Comment: 411.2 Performed By: #### L 300.3900 ####[facility] [address] [place], [place], [phone] Prothrombin timeOrdered By: Kvng Crisostomo on 05-09-2024 PT Coag (PPP) [Time] 35.4 s High 11.7-14.9 [facility] [employer] normalized rat io (INR) calculationOrdered By: Kvng Crisostomo on 05-08-2024 INR Coag (Bld) [Relative time] 4.1 {INR} High [facility] Comment on above: CRITICAL VALUE [facility]/08[facility]24 0950 Karen Jamison.RESULTS READ BACK BY SAME. Prothrombin Time w/INRon INR Coag (PPP) [Relative time] 4.1 {INR} Invalid Interpretation Code [facility] Comment on above: Order Comment: 411.2 Result Comment: CRIT ICAL VALUE CALLED TO [facility]05/08/24 0950 Karen Jamison.RESULTS READ BACK BY SAME. Performed By: #### L 300.3900 ####[facility] [address] [place], [address] PT Coag (PPP) [Time] 40.8 s High 11.7-14.9 [facility] Comment on above: Order Comment: 411.2 Performed By: #### L 300.3900 ####[facility] [address] [place], [address] Prothrombin timeOrdered By: Babsigifredojeet Andressa on 05-08-2024 PT Coag (PPP) [Time] 40.8 s High 11.7-14.9 [facility] [employer] normalized rat io (INR) calculationOrdered By: Babsigifredojeet Andressa on 05-05-2024 INR Coag (Bld) [Relative time] 3.2 {INR} [facility] Prothrombin Time w/INRon INR Coag (PPP) [Relative time] 3.2 {INR} Normal [facility] Comment on above: Order Comment: 411.2 Performed By: #### L 300.3900 ####[facility] [address] [place], [address] PT Coag (PPP) [Time] 32.5 s High 11.7-14.9 [facility] Comment on above: Order Comment: 411.2 Performed By: #### L 300.3900 ####[facility] [address] [place], [address] Prothrombin timeOrdered By: Babsigifredojeet Andressa on 05-05-2024 PT Coag (PPP) [Time] 32.5 s High 11.7-14.9 [facility] [employer] normalized rat io (INR) calculationOrdered By: Babbaljeet Crisostomo on 05-01-2024 INR Coag (Bld) [Relative time] 3.1 {INR} [facility] Prothrombin Time w/INRon INR Coag (PPP) [Relative time] 3.1 {INR} Normal [facility] Comment on above: Order Comment: 411.2 Performed By: #### L 300.3900 ####[facility] [address] [place], [address] PT Coag (PPP) [Time] 31.9 s High 11.7-14.9 [facility] Comment on above: Order Comment: 411.2 Performed By: #### L 300.3900 ####[facility] [address] [place], [address] Prothrombin timeOrdered By: Kvng Crisostomo on 05-01-2024 PT Coag (PPP) [Time] 31.9 s High 11.7-14.9 [facility] normalized rat io (INR) calculationOrdered By: Carlos Cavazos on 04-28-2024 INR Coag (Bld) [Relative time] 2.6 {INR} [facility] Prothrombin Time w/INRon INR Coag (PPP) [Relative time] 2.6 {INR} Normal [facility] Comment on above: Order Comment: 411-2 Performed By: #### L 300.3900 ####[facility] [address] [place], [address] PT Coag (PPP) [Time] 27.3 s High 11.7-14.9 [facility] Comment on above: Order Comment: 411-2 Performed By: #### L 300.3900 ####[facility] [address] [place], [address] Prothrombin timeOrdered By: Carlos Cavazos on 04-28-2024 PT Coag (PPP) [Time] 27.3 s High 11.7-14.9 [facility] normalized rat io (INR) calculationOrdered By: Kvng Crisostomo on 04-24-2024 INR Coag (Bld) [Relative time] 3.6 {INR} [facility] Prothrombin Time w/INRon INR Coag (PPP) [Relative time] 3.6 {INR} Normal [facility] Comment on above: Order Comment: 411.2 Performed By: #### L 300.3900 ####[facility] [address] [place], [address] PT Coag (PPP) [Time] 35.6 s High 11.7-14.9 [facility] Comment on above: Order Comment: 411.2 Performed By: #### L 300.3900 ####[facility] [address] [place], [address] Prothrombin timeOrdered By: Kvng Crisostomo on 04-24-2024 PT Coag (PPP) [Time] 35.6 s High 11.7-14.9 [facility] normalized rat io (INR) calculationOrdered By: Carlos Cavazos on 04-21-2024 INR Coag (Bld) [Relative time] 2.8 {INR} [facility] Prothrombin Time w/INRon INR Coag (PPP) [Relative time] 2.8 {INR} Normal [facility] Comment on above: Order Comment: 411-2 Performed By: #### L 300.3900 ####[facility] [address] [place], [address] PT Coag (PPP) [Time] 29.4 s High 11.7-14.9 [facility] Comment on above: Order Comment: 411-2 Performed By: #### L 300.3900 ####[facility] [address] [place], [address] Prothrombin timeOrdered By: Carlos Cavazos on 04-21-2024 PT Coag (PPP) [Time] 29.4 s High 11.7-14.9 [facility] normalized rat io (INR) calculationOrdered By: Kvng Crisostomo on 04-17-2024 INR Coag (Bld) [Relative time] 3.1 {INR} [facility] Prothrombin Time w/INRon INR Coag (PPP) [Relative time] 3.1 {INR} Normal [facility] Comment on above: Order Comment: 411.2 Performed By: #### L 300.3900 ####[facility] [address] [place], [place], [phone] Prothrombin timeOrdered By: Kvng Crisostomo on 04-17-2024 PT Coag (PPP) [Time] 31.3 s High 11.7-14.9 [facility] Comment on above: Order Comment: 411.2 Performed By: #### L 300.3900 ####[facility] [address] [place], [place], [phone] International normalized rat io (INR) calculationOrdered By: Kvng Crisostomo on 04-14-2024 INR Coag (Bld) [Relative time] 3.3 {INR} [facility] Prothrombin Time w/INRon INR Coag (PPP) [Relative time] 3.3 {INR} Normal [facility] Comment on above: Order Comment: 411.2 Performed By: #### L 300.3900 ####[facility] [address] [place], [place], [phone]) PT Coag (PPP) [Time] 33.2 s High 11.7-14.9 [facility] Comment on above: Order Comment: 411.2 Performed By: #### L 300.3900 ####[facility] [address] [place], [place], [phone] Prothrombin timeOrdered By: Kvng Crisostomo on 04-14-2024 PT Coag (PPP) [Time] 33.2 s High 11.7-14.9 [facility] normalized rat io (INR) calculationOrdered By: Elizabethet Andressa on 04-10-2024 INR Coag (Bld) [Relative time] 2.8 {INR} [facility] Prothrombin Time w/INRon INR Coag (PPP) [Relative time] 2.8 {INR} Normal [facility] Comment on above: Order Comment: 411.2 Performed By: #### L 300.3900 ####[facility] [address] [place], [address] PT Coag (PPP) [Time] 29.2 s High 11.7-14.9 [facility] Comment on above: Order Comment: 411.2 Performed By: #### L 300.3900 ####[facility] [address] [place], [address] Prothrombin timeOrdered By: Kvng Crisostomo on 04-10-2024 PT Coag (PPP) [Time] 29.2 s High 11.7-14.9 [facility] normalized rat io (INR) calculationOrdered By: Carlos Cavazos on 04-07-2024 INR Coag (Bld) [Relative time] 2.7 {INR} [facility] Prothrombin Time w/INRon INR Coag (PPP) [Relative time] 2.7 {INR} Normal [facility] Comment on above: Order Comment: 411-2 Performed By: #### L 300.3900 ####[facility] [address] [place], [address] PT Coag (PPP) [Time] 28.1 s High 11.7-14.9 [facility] Comment on above: Order Comment: 411-2 Performed By: #### L 300.3900 ####[facility] [address] [place], [address] Prothrombin timeOrdered By: Carlos Cavazos on 04-07-2024 PT Coag (PPP) [Time] 28.1 s High 11.7-14.9 [facility] normalized rat io (INR) calculationOrdered By: Kvng Crisostomo on 04-04-2024 INR Coag (Bld) [Relative time] 2.8 {INR} [facility] Prothrombin Time w/INRon INR Coag (PPP) [Relative time] 2.8 {INR} Normal [facility] Comment on above: Order Comment: 411.2 Performed By: #### L 300.3900 ####[facility] [address] [place], [address] PT Coag (PPP) [Time] 28.9 s High 11.7-14.9 [facility] Comment on above: Order Comment: 411.2 Performed By: #### L 300.3900 ####[facility] [address] [place], [address] Prothrombin timeOrdered By: Kvng Crisostomo on 04-04-2024 PT Coag (PPP) [Time] 28.9 s High 11.7-14.9 [facility] normalized rat io (INR) calculationOrdered By: Carlos Cavazos on 03-31-2024 INR Coag (Bld) [Relative time] 2.6 {INR} [facility] Prothrombin Time w/INRon INR Coag (PPP) [Relative time] 2.6 {INR} Normal [facility] Comment on above: Order Comment: 411-2 Performed By: #### L 300.3900 ####[facility] [address] [place], [address] PT Coag (PPP) [Time] 27.3 s High 11.7-14.9 [facility] Comment on above: Order Comment: 411-2 Performed By: #### L 300.3900 ####[facility] [address] [place], [address] Prothrombin timeOrdered By: Carlos Cavazos on 03-31-2024 PT Coag (PPP) [Time] 27.3 s High 11.7-14.9 [facility] normalized rat io (INR) calculationOrdered By: [place] Marek on 03-27-2024 INR Coag (Bld) [Relative time] 2.2 {INR} [facility] Prothrombin Time w/INRon INR Coag (PPP) [Relative time] 2.2 {INR} Normal [facility] Comment on above: Order Comment: 411.2 Performed By: #### L 300.3900 ####[facility] [address] [place], [address] PT Coag (PPP) [Time] 24.3 s High 11.7-14.9 [facility] Comment on above: Order Comment: 411.2 Performed By: #### L 300.3900 ####[facility] [address] [place], [address] Prothrombin timeOrdered By: [employer] on 03-27-2024 PT Coag (PPP) [Time] 24.3 s High 11.7-14.9 [facility] normalized rat io (INR) calculationOrdered By: Kvng Crisostomo on 03-24-2024 INR Coag (Bld) [Relative time] 1.8 {INR} [facility] Prothrombin Time w/INRon INR Coag (PPP) [Relative time] 1.8 {INR} Normal [facility] Comment on above: Order Comment: 411.2 Performed By: #### L 300.3900 ####[facility] [address] [place], [address] PT Coag (PPP) [Time] 20.7 s High 11.7-14.9 [facility] Comment on above: Order Comment: 411.2 Performed By: #### L 300.3900 ####[facility] [address] [place], [address] Prothrombin timeOrdered By: Kvng Crisostomo on 03-24-2024 PT Coag (PPP) [Time] 20.7 s High 11.7-14.9 [facility] normalized rat io (INR) calculationOrdered By: [employer] on 03-20-2024 INR Coag (Bld) [Relative time] 1.8 {INR} [facility] Prothrombin Time w/INRon INR Coag (PPP) [Relative time] 1.8 {INR} Normal [facility] Comment on above: Order Comment: 411.2 Performed By: #### L 300.3900 ####[facility] [address] [place], [place], [phone] PT Coag (PPP) [Time] 20.9 s High 11.7-14.9 [facility] Comment on above: Order Comment: 411.2 Performed By: #### L 300.3900 ####[facility] [address] [place], [address] Prothrombin timeOrdered By: [employer] on 03-20-2024 PT Coag (PPP) [Time] 20.9 s High 11.7-14.9 [facility] normalized rat io (INR) calculationOrdered By: Kvng Crisostomo on 03-19-2024 INR Coag (Bld) [Relative time] 2.4 {INR} [facility] Prothrombin Time w/INRon INR Coag (PPP) [Relative time] 2.4 {INR} Normal [facility] Comment on above: Order Comment: 411.2 Performed By: #### L 300.3900 ####[facility] [address] [place], [address] PT Coag (PPP) [Time] 26.4 s High 11.7-14.9 [facility] Comment on above: Order Comment: 411.2 Performed By: #### L 300.3900 ####[facility] [address] [place], [address] Prothrombin timeOrdered By: Kvng Crisostomo on 03-19-2024 PT Coag (PPP) [Time] 26.4 s High 11.7-14.9 [facility] normalized rat io (INR) calculationOrdered By: [employer] on 03-18-2024 INR Coag (Bld) [Relative time] 3.2 {INR} [facility] Prothrombin Time w/INRon INR Coag (PPP) [Relative time] 3.2 {INR} Normal [facility] Comment on above: Order Comment: 411.2 Performed By: #### L 300.3900 ####[facility] [address] [place], [address] PT Coag (PPP) [Time] 32.3 s High 11.7-14.9 [facility] Comment on above: Order Comment: 411.2 Performed By: #### L 300.3900 ####[facility] [address] [place], [place], [phone] Prothrombin timeOrdered By: [employer] on 03-18-2024 PT Coag (PPP) [Time] 32.3 s High 11.7-14.9 [facility] normalized rat io (INR) calculationOrdered By: [employer] on 03-17-2024 INR Coag (Bld) [Relative time] 3.6 {INR} [facility] Prothrombin Time w/INRon INR Coag (PPP) [Relative time] 3.6 {INR} Normal [facility] Comment on above: Order Comment: 411.2 Performed By: #### L 300.3900 ####[facility] [address] [place], [address] PT Coag (PPP) [Time] 35.7 s High 11.7-14.9 [facility] Comment on above: Order Comment: 411.2 Performed By: #### L 300.3900 ####[facility] [address] [place], [address] Prothrombin timeOrdered By: [employer] on 03-17-2024 PT Coag (PPP) [Time] 35.7 s High 11.7-14.9 [facility] normalized rat io (INR) calculationOrdered By: Carlos Cavazos on 03-14-2024 INR Coag (Bld) [Relative time] 3.5 {INR} [facility] Prothrombin Time w/INRon INR Coag (PPP) [Relative time] 3.5 {INR} Normal [facility] Comment on above: Order Comment: 411-2 Performed By: #### L 300.3900 ####[facility] [address] [place], [address] PT Coag (PPP) [Time] 35.0 s High 11.7-14.9 [facility] Comment on above: Order Comment: 411-2 Performed By: #### L 300.3900 ####[facility] [address] [place], [address] Prothrombin timeOrdered By: Carlos Cavazos on 03-14-2024 PT Coag (PPP) [Time] 35.0 s High 11.7-14.9 [facility] normalized rat io (INR) calculationOrdered By: [employer] on 03-13-2024 INR Coag (Bld) [Relative time] 3.2 {INR} [facility] Prothrombin Time w/INRon INR Coag (PPP) [Relative time] 3.2 {INR} Normal [facility] Comment on above: Performed By: #### L 300.3900 ####[facility] [address] [place], [address] PT Coag (PPP) [Time] 32.2 s High 11.7-14.9 [facility] Comment on above: Performed By: #### L 300.3900 ####[facility] [address] [place], [address] Prothrombin timeOrdered By: [employer] [place] on 03-13-2024 PT Coag (PPP) [Time] 32.2 s High 11.7-14.9 [facility] Prothrombin Time w/INRon INR Coag (PPP) [Relative time] 2.6 {INR} Normal [facility] Comment on above: Order Comment: 411.2 Performed By: #### L 300.3900 ####[facility] [address] [place], [address] PT Coag (PPP) [Time] 27.7 s High 11.7-14.9 [facility] Comment on above: Order Comment: 411.2 Performed By: #### L 300.3900 ####[facility] [address] [place], [address] Prothrombin Time w/INRon - INR Coag (PPP) [Relative time] 3.1 {INR} Normal [facility] Comment on above: Order Comment: 411.2 Performed By: #### L 300.3900 ####[facility] [address] [place], [address] PT Coag (PPP) [Time] 31.4 s High 11.7-14.9 [facility] Comment on above: Order Comment: 411.2 Performed By: #### L 300.3900 ####[facility] [address] [place], [address] Prothrombin Time w/INRon INR Coag (PPP) [Relative time] 3.1 {INR} Normal [facility] Comment on above: Order Comment: 411.2 Performed By: #### L 300.3900 ####[facility] [address] [place], [address] PT Coag (PPP) [Time] 31.8 s High 11.7-14.9 [facility] Comment on above: Order Comment: 411.2 Performed By: #### L 300.3900 ####[facility] [address] [place], [address] Prothrombin Time w/INRon INR Coag (PPP) [Relative time] 3.0 {INR} Normal [facility] Comment on above: Order Comment: 411.2 Performed By: #### L 300.3900 ####[facility] [address] [place], [address] PT Coag (PPP) [Time] 30.6 s High 11.7-14.9 [facility] Comment on above: Order Comment: 411.2 Performed By: #### L 300.3900 ####[facility] [address] [place], [address] Prothrombin Time w/INRon - -4 INR Coag (PPP) [Relative time] 2.6 {INR} Normal [facility] Comment on above: Order Comment: 411-2 Performed By: #### L 300.3900 ####[facility] [address] [place], [address] PT Coag (PPP) [Time] 27.5 s High 11.7-14.9 [facility] Comment on above: Order Comment: 411-2 Performed By: #### L 300.3900 ####[facility] [address] [place], [address] Prothrombin Time w/INRon - INR Coag (PPP) [Relative time] 2.3 {INR} Normal [facility] Comment on above: Order Comment: 411.2 Performed By: #### L 300.3900 ####[facility] [address] [place], [address] PT Coag (PPP) [Time] 25.5 s High 11.7-14.9 [facility] Comment on above: Order Comment: 411.2 Performed By: #### L 300.3900 ####[facility] [address] [place], [address] Prothrombin Time w/INRon - -4 INR Coag (PPP) [Relative time] 1.9 {INR} Normal [facility] Comment on above: Order Comment: 411.2 Performed By: #### L 300.3900 ####[facility] [address] [place], [address] PT Coag (PPP) [Time] 21.3 s High 11.7-14.9 [facility] Comment on above: Order Comment: 411.2 Performed By: #### L 300.3900 ####[facility] [address] [place], [address] Prothrombin Time w/INRon INR Coag (PPP) [Relative time] 2.5 {INR} Normal [facility] Comment on above: Order Comment: 411.2 Performed By: #### L 300.3900 ####[facility] [address] [place], [address] PT Coag (PPP) [Time] 26.5 s High 11.7-14.9 [facility] Comment on above: Order Comment: 411.2 Performed By: #### L 300.3900 ####[facility] [address] [place], [address] Prothrombin Time w/INRon INR Coag (PPP) [Relative time] 2.9 {INR} Normal [facility] Comment on above: Order Comment: 411.2 Performed By: #### L 300.3900 ####[facility] [address] [place], [address] PT Coag (PPP) [Time] 30.2 s High 11.7-14.9 [facility] Comment on above: Order Comment: 411.2 Performed By: #### L 300.3900 ####[facility] [address] [place], [address] Prothrombin Time w/INRon INR Coag (PPP) [Relative time] 3.6 {INR} Normal [facility] Comment on above: Order Comment: 411.2 Performed By: #### L 300.3900 ####[facility] [address] [place], [address] PT Coag (PPP) [Time] 35.3 s High 11.7-14.9 [facility] Comment on above: Order Comment: 411.2 Performed By: #### L 300.3900 ####[facility] [address] [place], [address] Prothrombin Time w/INRon INR Coag (PPP) [Relative time] 2.8 {INR} Normal [facility] Comment on above: Order Comment: 411-2 Performed By: #### L 300.3900 ####[facility] [address] [place], [address] PT Coag (PPP) [Time] 29.4 s High 11.7-14.9 [facility] Comment on above: Order Comment: 411-2 Performed By: #### L 300.3900 ####[facility] [address] [place], [address] Prothrombin Time w/INRon INR Coag (PPP) [Relative time] 2.9 {INR} Normal [facility] Comment on above: Order Comment: 411.2 Performed By: #### L 300.3900 ####[facility] [address] [place], [address] PT Coag (PPP) [Time] 29.9 s High 11.7-14.9 [facility] Comment on above: Order Comment: 411.2 Performed By: #### L 300.3900 ####[facility] [address] [place], [address] Prothrombin Time w/INRon INR Coag (PPP) [Relative time] 2.2 {INR} Normal [facility] Comment on above: Order Comment: 411.2 Performed By: #### L 300.3900 ####[facility] [address] [place], [address] PT Coag (PPP) [Time] 24.1 s High 11.7-14.9 [facility] Comment on above: Order Comment: 411.2 Performed By: #### L 300.3900 ####[facility] [address] [place], [address] Prothrombin Time w/INRon INR Coag (PPP) [Relative time] 2.1 {INR} Normal [facility] Comment on above: Order Comment: 411-2 Performed By: #### L 300.3900 ####[facility] [address] [place], [address] PT Coag (PPP) [Time] 23.0 s High 11.7-14.9 [facility] Comment on above: Order Comment: 411-2 Performed By: #### L 300.3900 ####[facility] [address] [place], [address] Prothrombin Time w/INRon INR Coag (PPP) [Relative time] 2.8 {INR} Normal [facility] Comment on above: Performed By: #### L 300.3900 ####[facility] [address] [place], [address] PT Coag (PPP) [Time] 28.9 s High 11.7-14.9 [facility] Comment on above: Performed By: #### L 300.3900 ####[facility] [address] [place], [address] Protime w/INR Fingerstickon 01-29-2024 INR Coag (PPP) [Relative time] 3.2 {INR} Normal [facility] Comment on above: Result Comment: Crit ical Value > 4.0 Performed By: #### L 9200.0000 ####[facility] [address] [place], [address] Protime Coagsen 31.8 SEC High 11.7-14.9 [facility] Comment on above: Performed By: #### L 9200.0000 ####[facility] [address] [place], [address] KEPPRA (LEVETIRACETAM)on KEPPRA 35.2 ug/mL Normal 10.0-40.0 [facility] Comment on above: Order Comment: 411-2 Result Comment: Perf ormed at: [facility] [address] [id number] Director: Alpesh Vázquez MD, Phone: [phone] Performed By: #### L 300.3900, L3310.0000 ####[facility] [address] [place], [address] Prothrombin Time w/INRon INR Coag (PPP) [Relative time] 2.9 {INR} Normal [facility] Comment on above: Order Comment: 411-2 Performed By: #### L 300.3900, L3310.0000 ####[facility] [address] [place], [address] PT Coag (PPP) [Time] 30.1 s High 11.7-14.9 [facility] Comment on above: Order Comment: 411-2 Performed By: #### L 300.3900, L3310.0000 ####[facility] [address] [place], [address] Prothrombin Time w/INRon INR Coag (PPP) [Relative time] 2.3 {INR} Normal [facility] Comment on above: Order Comment: 411-2 Performed By: #### L 300.3900 ####[facility] [address] [place], [address] PT Coag (PPP) [Time] 25.2 s High 11.7-14.9 [facility] Comment on above: Order Comment: 411-2 Performed By: #### L 229.6235 ####[facility] [address] 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 [facility] 36 Please advise [facility] 36on 08-21-2023 36 Name of caller: Zion holt Contact phone number: [phone] Relationship to Patient: patient Provider: MD Quinn [place] [facility] Chief Complaint/Reason for Call: Shanthi called in to see if Pt would need to come by cot for his CT appt due to Pt being Boaz. [facility] did reach out to office and was advised to reach out to Central Scheduling. [facility] did reach out to and was advised to let Shanthi know that she would need to reach out to call Maury Cedeño Terra [employer]ta Mold Maker at [facility] [phone] to get clarifications. [facility] did reach back out to [facility] and advised and provider Maury's #. Please advise Best time of day caller can be reached: Any Patient advised that office/PCP has 24-48 business hours to return their call: N/A [facility] Laboratory - CoagulationOrde red By: Carlos Cavazos on 08-21-2023 INR Coag (Bld) [Relative time] 2.7 {INR} [facility] PT Coag (PPP) [Time] 28.9 s 11.7-14.9 [facility] Office Visiton 08-13-2023 Follow-up visit [id number] Tamie Sifuentes 1950 M Date Provider Department Center 08/13/2023 [id number] BUCK [facility] None Family History Problem Relation Age of Onset Heart disease Father Cancer Mother Family Status - Relation Status Age at Father Mother Level of Service:07363 [place] OFFICE/OUTPATIENT NEW MODERATE MDM 45 MINUTES Reason for Visit and Comments: New Patient [542] - Bilateral flank pain, hx of kidney stones Nephrolithiasis [952605] [facility] Progress Noteon 08-13-2023 Progress Note [...] Hydrocephalus, adult (CMS/HCC) (HCC) Kidney stone Neuropathy TRACK VEHICLE REPAIRER (ventriculoperitoneal) shunt status Past Surgical History: Past [...] 08-03-2023 Levetiracetam (Keppra) Level 32.4 ug/mL 10.0-40.0 [facility] Comment on above: Performed at: [address] [id number] Director: Alpesh Vázquez MD, Phone: [phone] Basophil percentageOrdered B y: Carlos Cavazos on 07-20-2023 Chloride [Moles/Vol] 106 mmol/L 98-107 [facility] Glucose [Mass/Vol] 98 mg/dL 74-106 [facility] Hemoglobin (Bld) [Mass/Vol] 12.5 g/dL 13.0-16.5 [facility] Potassium [Moles/Vol] 4.3 mmol/L 3.5-5.1 [facility] Sodium [Moles/Vol] 135 mmol/L 136-145 [facility] WBC (Bld) [#/Vol] 13.0 10*3/uL 4.4-11.0 [place] Determination of erythrocyte mean corpuscular volume (MCV)Ordered By: Carlos Cavazos on 07-20-2023 MCV (RBC) [Entitic vol] 86.2 fL 80-94 [facility] Erythrocyte distribution wid th ratioOrdered By: Carlos Cavazos on 07-20-2023 Erythrocyte distribution width (RBC) [Ratio] 15.3 % 11.6-14.6 [facility] Erythrocyte distribution wid th standard deviationOrdered By: Carlos Cavazos on 07-20-2023 Erythrocyte distribution width (RBC) [Entitic vol] 48.1 fL 35.1-43.9 [facility] Hematocrit Auto (Bld) [Volum e fraction]Ordered By: Carlos Cavazos on 07-20-2023 Hematocrit (Bld) [Volume fraction] 39.9 % 40-54 [facility] Laboratory - Chemistry and C hemistry - challengeOrdered By: Carlos Cavazos on 07-20-2023 CO2 [Moles/Vol] 24.0 mmol/L 21.0-32.0 [facility] Urea nitrogen/Creatinine [Mass ratio] 24.6 mg/mg 10-20 [facility] Laboratory - Hematology and Cell countsOrdered By: Carlos Cavazos on 07-20-2023 MCH (RBC) [Entitic mass] 27.0 pg 27.0-32.0 [facility] MCHC (RBC) [Mass/Vol] 31.3 g/dL 32-36 [facility] Platelet mean volume (Bld) [Entitic vol] 10.7 fL 6.2-12.0 [facility] Platelets (Bld) [#/Vol] 260 10*3/uL 150-450 [facility] No Panel InformationOrdered By: Carlos Cavazos on 07-20-2023 Estimated GFR (MDRD) Amer 114 mL/min >60 [facility] Comment on above: GFR Calc Estimated GFR (MDRD) Non-Af Amer 94 mL/min >60 [facility] Comment on above: Non- GFR Calc RBC Auto (Bld) [#/Vol]Ordere d By: Carlos Cavazos on 07-20-2023 RBC (Bld) [#/Vol] 4.63 10*6/uL 4.6-6.2 [place] Serum or plasma calcium oral urement (mass/volume)Ordered By: Carlos Cavazos on 07-20-2023 Calcium [Mass/Vol] 8.6 mg/dL 8.5-10.1 [facility] Serum or plasma creatinine m easurement (mass/volume)Ordered By: Carlos Cavazos on 07-20-2023 Creatinine [Mass/Vol] 0.85 mg/dL 0.70-1.30 [facility] Comment on above: The validity of the calculated GFR & GFRAA in patients over 70 years has not been determined. Clinical correlation is essential. Serum or plasma urea nitroge n measurement (mass/volume)Ordered By: Carlos Cavazos on 07-20-2023 Urea nitrogen [Mass/Vol] 21 mg/dL 7-18 [facility] Thin prep Papanicolaou smear with manual screeningOrdered By: Carlos Cavazos on 07-20-2023 Thin prep Papanicolaou smear with manual screening 5 5-15 [facility] Basophil percentageOrdered B y: Carlos Cavazos on 07-18-2023 Chloride [Moles/Vol] 102 mmol/L 98-107 [facility] Glucose [Mass/Vol] 96 mg/dL 74-106 [facility] Hemoglobin (Bld) [Mass/Vol] 12.3 g/dL 13.0-16.5 [facility] Potassium [Moles/Vol] 4.2 mmol/L 3.5-5.1 [facility] Sodium [Moles/Vol] 136 mmol/L 136-145 [facility] WBC (Bld) [#/Vol] 14.7 10*3/uL 4.4-11.0 [place] Determination of erythrocyte mean corpuscular volume (MCV)Ordered By: Carlos Cavazos on 07-18-2023 MCV (RBC) [Entitic vol] 85.4 fL 80-94 [facility] Erythrocyte distribution wid th ratioOrdered By: Carlos Cavazos on 07-18-2023 Erythrocyte distribution width (RBC) [Ratio] 15.1 % 11.6-14.6 [facility] Erythrocyte distribution wid th standard deviationOrdered By: Carlos Cavazos on 07-18-2023 Erythrocyte distribution width (RBC) [Entitic vol] 47.3 fL 35.1-43.9 [facility] Hematocrit Auto (Bld) [Volum e fraction]Ordered By: Carlos Cavazos on 07-18-2023 Hematocrit (Bld) [Volume fraction] 39.3 % 40-54 [facility] Laboratory - Chemistry and C hemistry - challengeOrdered By: Carlos Cavazos on 07-18-2023 CO2 [Moles/Vol] 27.0 mmol/L 21.0-32.0 [facility] Urea nitrogen/Creatinine [Mass ratio] 24.4 mg/mg 10-20 [facility] Laboratory - Hematology and Cell countsOrdered By: Carlos Cavazos on 07-18-2023 MCH (RBC) [Entitic mass] 26.7 pg 27.0-32.0 [facility] MCHC (RBC) [Mass/Vol] 31.3 g/dL 32-36 [facility] Platelet mean volume (Bld) [Entitic vol] 10.3 fL 6.2-12.0 [facility] Platelets (Bld) [#/Vol] 288 10*3/uL 150-450 [facility] No Panel InformationOrdered By: Carlos Cavazos on 07-18-2023 Estimated GFR (MDRD) Amer 113 mL/min >60 [facility] Comment on above: GFR Calc Estimated GFR (MDRD) Non-Af Amer 93 mL/min >60 [facility] Comment on above: Non- GFR Calc RBC Auto (Bld) [#/Vol]Ordere d By: Carlos Cavazos on 07-18-2023 RBC (Bld) [#/Vol] 4.60 10*6/uL 4.6-6.2 [place] Serum or plasma calcium oral urement (mass/volume)Ordered By: Carlos Cavazos on 07-18-2023 Calcium [Mass/Vol] 8.9 mg/dL 8.5-10.1 [facility] Serum or plasma creatinine m easurement (mass/volume)Ordered By: Carlos Cavazos on 07-18-2023 Creatinine [Mass/Vol] 0.86 mg/dL 0.70-1.30 [facility] Comment on above: The validity of the calculated GFR & GFRAA in patients over 70 years has not been determined. Clinical correlation is essential. Serum or plasma urea nitroge n measurement (mass/volume)Ordered By: Carlos Cavazos on 07-18-2023 Urea nitrogen [Mass/Vol] 21 mg/dL 7-18 [facility] Thin prep Papanicolaou smear with manual screeningOrdered By: Carlos Cavazos on 07-18-2023 Thin prep Papanicolaou smear with manual screening 7 5-15 [facility] Basophil percentageOrdered B y: Carlos Cavazos on 07-17-2023 Basophil percentage 0-5 SEEN /hpf 0-5 [facility] Bilirubin Test strip Ql (U)O rdered By: Carlos Cavazos on 07-17-2023 Bilirubin Ql (U) Negative Negative [facility] Calcium oxalate crystals det ection in urine sediment by light microscopyOrdered By: Carlos Cavazos on 07-17-2023 Calcium oxalate crystals LM Ql (Urine sed) 1+ /hpf [facility] Culture, urineOrdered By: Sharif Crouch on 07-17-2023 Bacteria identified Cx Nom (U) Positive [facility] Ketones Test strip Ql (U)Ord ered By: Carlos Cavazos on 07-17-2023 Ketones Ql (U) Negative Negative [facility] Mucus LM Ql (Urine sed)Order ed By: Carlos Cavazos on 07-17-2023 Mucus Ql (Urine sed) 0 SEEN /hpf [facility] Nitrite Test strip Ql (U)Ord ered By: Carlos Cavazos on 07-17-2023 Nitrite Ql (U) Negative Negative [facility] No Panel InformationOrdered By: Carlos Cavazos on 07-17-2023 Urine RBC 0 SEEN /hpf 0-5 [facility] Protein Test strip Ql (U)Ord ered By: Carlos Cavazos on 07-17-2023 Protein Ql (U) Negative Negative [facility] Squamous epithelial cells de tection in urine sediment by light microscopyOrdered By: Carlos Cavazos on 07-17-2023 Epithelial cells.squamous LM Ql (Urine sed) 0-5 SEEN /hpf 0-5 [facility] Urine blood detectionOrdered By: Carlos Cavazos on 07-17-2023 RBC Ql (U) Negative Negative [facility] Urine clarityOrdered By: Ted Cavazos on 07-17-2023 Clarity (U) Clear Clear [facility] Urine color determinationOrd ered By: Carlos Cavazos on 07-17-2023 Color (U) Yellow Yellow [facility] Urine glucose detectionOrder ed By: Carlos Cavazos on 07-17-2023 Glucose Ql (U) Normal mg/dl Normal [facility] Urine leukocyte esterase det ection by dipstickOrdered By: Carlos Cavazos on 07-17-2023 Leukocyte esterase Test strip Ql (U) 25 /ul Negative [facility] Urine pHOrdered By: Carlos flores on 07-17-2023 pH (U) 6.0 [pH] 5.0 - 8.0 [facility] Urine sediment bacteria coun t by microscopy (number/high power field)Ordered By: Carlos Cavazos on 07-17-2023 Bacteria LM.HPF (Urine sed) [#/Area] 0 /[HPF] None Seen [facility] Urine specific gravity measu rementOrdered By: Carlos Cavazos on 07-17-2023 Specific gravity (U) [Rel density] 1.020 1.002-1.030 [facility] Urine urobilinogen measureme ntOrdered By: Carlos Cavazos on 07-17-2023 Urobilinogen Ql (U) Normal mg/dl Normal [facility] Absolute lymphocyte countOrd ered By: Carlos Cavazos on 07-16-2023 Lymphocytes Auto (Unsp spec) [#/Vol] 6.02 10*3/uL 0.83-4.51 [facility] Automated lymphocyte count a s percentage of total leukocytesOrdered By: Carlos Cavazos on 07-16-2023 Lymphocytes/100 WBC Auto (Unsp spec) 49.1 % 19-41 [facility] Basophil percentageOrdered B y: Carlos Cavazos on 07-16-2023 Basophils/100 WBC (Bld) 0.6 % 0-1 [facility] Chloride [Moles/Vol] 105 mmol/L 98-107 [facility] Eosinophils/100 WBC (Bld) 2.0 % 0-5 [facility] Glucose [Mass/Vol] 93 mg/dL 74-106 [facility] Hemoglobin (Bld) [Mass/Vol] 12.1 g/dL 13.0-16.5 [facility] Monocytes/100 WBC (Bld) 5.3 % 0-10 [facility] Neutrophils (Bld) [#/Vol] 5.2 10*3/uL 2.0-7.7 [facility] Neutrophils/100 WBC (Bld) 42.8 % 47-70 [facility] Potassium [Moles/Vol] 4.3 mmol/L 3.5-5.1 [facility] Sodium [Moles/Vol] 138 mmol/L 136-145 [facility] WBC (Bld) [#/Vol] 12.3 10*3/uL 4.4-11.0 [facility] Blood manual differential co mment interpretation (narrative result)Ordered By: Carlos Cavazos on 07-16-2023 Manual differential comment Shemar (Bld) [Interp] SCANNED [facility] Determination of erythrocyte mean corpuscular volume (MCV)Ordered By: Carlos Cavazos on 07-16-2023 MCV (RBC) [Entitic vol] 86.8 fL 80-94 [facility] Erythrocyte distribution wid th ratioOrdered By: Carlos Cavazos on 07-16-2023 Erythrocyte distribution width (RBC) [Ratio] 15.3 % 11.6-14.6 [facility] Erythrocyte distribution wid th standard deviationOrdered By: Carlos Cavazos on 07-16-2023 Erythrocyte distribution width (RBC) [Entitic vol] 48.9 fL 35.1-43.9 [facility] Hematocrit Auto (Bld) [Volum e fraction]Ordered By: Carlos Cavazos on 07-16-2023 Hematocrit (Bld) [Volume fraction] 38.7 % 40-54 [facility] Immature granulocytes/100 WB C Auto (Bld)Ordered By: Carlos Cavazos on 07-16-2023 Immature granulocytes/100 WBC (Bld) 0.200 % 0.0-0.9 [facility] Comment on above: IG% - Immature Granu locytes (promyelocytes, myelocytes and metamyelocytes) > 1% indicates that a LEFT SHIFT is Present. Laboratory - Chemistry and C hemistry - challengeOrdered By: Carlos Cavazos on 07-16-2023 CO2 [Moles/Vol] 25.0 mmol/L 21.0-32.0 [facility] Urea nitrogen/Creatinine [Mass ratio] 21.0 mg/mg 10-20 [facility] Laboratory - CoagulationOrde red By: Carlos Cavazos on 07-16-2023 INR Coag (Bld) [Relative time] 2.4 {INR} [facility] PT Coag (PPP) [Time] 25.7 s 11.7-14.9 [facility] Laboratory - Hematology and Cell countsOrdered By: Carlos Cavazos on 07-16-2023 MCH (RBC) [Entitic mass] 27.1 pg 27.0-32.0 [facility] MCHC (RBC) [Mass/Vol] 31.3 g/dL 32-36 [facility] Nucleated RBC/100 WBC (Bld) [Ratio] 0 % 0-5 [facility] Platelet mean volume (Bld) [Entitic vol] 10.5 fL 6.2-12.0 [facility] Platelets (Bld) [#/Vol] 289 10*3/uL 150-450 [facility] No Panel InformationOrdered By: Carlos Cavazos on 07-16-2023 Estimated GFR (MDRD) Amer 106 mL/min >60 [facility] Comment on above: GFR Calc Estimated GFR (MDRD) Non-Af Amer 88 mL/min >60 [facility] Comment on above: Non- GFR Calc Reactive Lymphocytes 1+ [facility] RBC Auto (Bld) [#/Vol]Ordere d By: Carlos Cavazos on 07-16-2023 RBC (Bld) [#/Vol] 4.46 10*6/uL 4.6-6.2 [place] Serum or plasma calcium oral urement (mass/volume)Ordered By: Carlos Cavazos on 07-16-2023 Calcium [Mass/Vol] 9.0 mg/dL 8.5-10.1 [facility] Serum or plasma creatinine m easurement (mass/volume)Ordered By: Carlos Cavazos on 07-16-2023 Creatinine [Mass/Vol] 0.90 mg/dL 0.70-1.30 [facility] Comment on above: The validity of the calculated GFR & GFRAA in patients over 70 years has not been determined. Clinical correlation is essential. Serum or plasma urea nitroge n measurement (mass/volume)Ordered By: Carlos Cavazos on 07-16-2023 Urea nitrogen [Mass/Vol] 19 mg/dL 7-18 [facility] Thin prep Papanicolaou smear with manual screeningOrdered By: Carlos Cavazos on 07-16-2023 Thin prep Papanicolaou smear with manual screening 8 5-15 [facility] Absolute lymphocyte countOrd ered By: Carlos Cavazos on 07-13-2023 Lymphocytes Auto (Unsp spec) [#/Vol] 5.44 10*3/uL 0.83-4.51 [facility] Automated lymphocyte count a s percentage of total leukocytesOrdered By: Carlos Cavazos on 07-13-2023 Lymphocytes/100 WBC Auto (Unsp spec) 47.3 % 19-41 [facility] Basophil percentageOrdered B y: Carlos Cavazos on 07-13-2023 Basophils/100 WBC (Bld) 0.4 % 0-1 [facility] Chloride [Moles/Vol] 107 mmol/L 98-107 [facility] Eosinophils/100 WBC (Bld) 1.7 % 0-5 [facility] Glucose [Mass/Vol] 96 mg/dL 74-106 [facility] Hemoglobin (Bld) [Mass/Vol] 13.5 g/dL 13.0-16.5 [facility] Monocytes/100 WBC (Bld) 4.3 % 0-10 [facility] Neutrophils (Bld) [#/Vol] 5.3 10*3/uL 2.0-7.7 [facility] Neutrophils/100 WBC (Bld) 46.0 % 47-70 [facility] Potassium [Moles/Vol] 4.0 mmol/L 3.5-5.1 [facility] Sodium [Moles/Vol] 139 mmol/L 136-145 [facility] WBC (Bld) [#/Vol] 11.5 10*3/uL 4.4-11.0 [place] Determination of erythrocyte mean corpuscular volume (MCV)Ordered By: Carlos Cavazos on 07-13-2023 MCV (RBC) [Entitic vol] 86.1 fL 80-94 [facility] Erythrocyte distribution wid th ratioOrdered By: Carlos Cavazos on 07-13-2023 Erythrocyte distribution width (RBC) [Ratio] 15.2 % 11.6-14.6 [facility] Erythrocyte distribution wid th standard deviationOrdered By: Carlos Cavazos on 07-13-2023 Erythrocyte distribution width (RBC) [Entitic vol] 48.0 fL 35.1-43.9 [facility] Hematocrit Auto (Bld) [Volum e fraction]Ordered By: Carlos Cavazos on 07-13-2023 Hematocrit (Bld) [Volume fraction] 42.2 % 40-54 [facility] Immature granulocytes/100 WB C Auto (Bld)Ordered By: Carlos Cavazos on 07-13-2023 Immature granulocytes/100 WBC (Bld) 0.300 % 0.0-0.9 [facility] Comment on above: IG% - Immature Granu locytes (promyelocytes, myelocytes and metamyelocytes) > 1% indicates that a LEFT SHIFT is Present. Laboratory - Chemistry and C hemistry - challengeOrdered By: Carlos Cavazos on 07-13-2023 CO2 [Moles/Vol] 26.0 mmol/L 21.0-32.0 [facility] Urea nitrogen/Creatinine [Mass ratio] 21.8 mg/mg 10-20 [facility] Laboratory - Hematology and Cell countsOrdered By: Carlos Cavazos on 07-13-2023 MCH (RBC) [Entitic mass] 27.6 pg 27.0-32.0 [facility] MCHC (RBC) [Mass/Vol] 32.0 g/dL 32-36 [facility] Nucleated RBC/100 WBC (Bld) [Ratio] 0 % 0-5 [facility] Platelet mean volume (Bld) [Entitic vol] 10.1 fL 6.2-12.0 [facility] Platelets (Bld) [#/Vol] 279 10*3/uL 150-450 [facility] No Panel InformationOrdered By: Carlos Cavazos on 07-13-2023 Estimated GFR (MDRD) Amer 118 mL/min >60 [facility] Comment on above: GFR Calc Estimated GFR (MDRD) Non-Af Amer 98 mL/min >60 [facility] Comment on above: Non- GFR Calc Levetiracetam (Keppra) Level 25.5 ug/mL 10.0-40.0 [facility] Comment on above: Performed at: [address] [id number] Director: Alpesh Vázquez MD, Phone: [phone] RBC Auto (Bld) [#/Vol]Ordere d By: Carlos Cavazos on 07-13-2023 RBC (Bld) [#/Vol] 4.90 10*6/uL 4.6-6.2 [place] Serum or plasma calcium oral urement (mass/volume)Ordered By: Carlos Cavazos on 07-13-2023 Calcium [Mass/Vol] 9.1 mg/dL 8.5-10.1 [facility] Serum or plasma creatinine m easurement (mass/volume)Ordered By: Carlos Cavazos on 07-13-2023 Creatinine [Mass/Vol] 0.82 mg/dL 0.70-1.30 [facility] Comment on above: The validity of the calculated GFR & GFRAA in patients over 70 years has not been determined. Clinical correlation is essential. Serum or plasma urea nitroge n measurement (mass/volume)Ordered By: Carlos Cavazos on 07-13-2023 Urea nitrogen [Mass/Vol] 18 mg/dL 7-18 [facility] Thin prep Papanicolaou smear with manual screeningOrdered By: Carlos Cavazos on 07-13-2023 Thin prep Papanicolaou smear with manual screening 6 5-15 [facility] No Panel InformationOrdered By: Carlos Cavazos on 07-12-2023 Valproic Acid (Depakene) Level < 3 ug/mL 50-100 [facility] Laboratory - CoagulationOrde red By: Carlos Cavazos on 07-05-2023 INR Coag (Bld) [Relative time] 2.4 {INR} [facility] PT Coag (PPP) [Time] 26.3 s 11.7-14.9 [facility] Laboratory - CoagulationOrde red By: Carlos Cavazos on 07-02-2023 INR Coag (Bld) [Relative time] 1.5 {INR} [facility] PT Coag (PPP) [Time] 18.5 s 11.7-14.9 [facility] Laboratory - CoagulationOrde red By: Carlos Cavazos on 06-28-2023 INR Coag (Bld) [Relative time] 1.7 {INR} [facility] PT Coag (PPP) [Time] 20.5 s 11.7-14.9 [facility] 36on 06-25-2023 36 [facility] christiano called in stating appt scheduled 07/10/23 Guy has to be made further out, pt being transported by cot. Changed appt to 08/13/23 per [facility] only avail time for transport, first avail with DR Buck at 10:00 AM. [facility] Laboratory - CoagulationOrde red By: Carlos Cavazos on 06-25-2023 INR Coag (Bld) [Relative time] 3.8 {INR} [facility] PT Coag (PPP) [Time] 38.2 s 11.7-14.9 [facility] Laboratory - CoagulationOrde red By: Carlos Cavazos on 06-21-2023 INR Coag (Bld) [Relative time] 3.2 {INR} [facility] PT Coag (PPP) [Time] 32.9 s 11.7-14.9 [facility] No Panel InformationOrdered By: Carlos Cavazos on 06-13-2023 Valproic Acid (Depakene) Level < 3 ug/mL 50-100 [facility] Laboratory - CoagulationOrde red By: Carlos Cavazos on 06-06-2023 PT Coag (PPP) [Time] 30.5 s 11.7-14.9 [facility] Platelet poor plasma interna tional normalized ratio (INR)Ordered By: Carlos Cavazos on 06-06-2023 INR Coag (PPP) [Relative time] 2.9 {INR} [facility] International normalized rat io (INR) calculationOrdered By: Carlos Cavazos on 05-23-2023 INR Coag (PPP) [Relative time] 2.6 {INR} [facility] Laboratory - CoagulationOrde red By: Carlos Cavazos on 05-23-2023 PT Coag (PPP) [Time] 27.7 s 11.7-14.9 [facility] - CoagulationOrde red By: Carlos Cavazos on 05-09-2023 PT Coag (PPP) [Time] 24.1 s 11.7-14.9 [facility] Whole blood international no rmalized ratio (INR)Ordered By: Carlos Cavazos on 05-09-2023 INR Coag (Bld) [Relative time] 2.1 {INR} [facility] Laboratory - CoagulationOrde red By: Carlos Cavazos on 04-23-2023 PT Coag (PPP) [Time] 26.4 s 11.7-14.9 [facility] Whole blood international no rmalized ratio (INR)Ordered By: Carlos Cavazos on 04-23-2023 INR Coag (Bld) [Relative time] 2.4 {INR} [facility] INR in Blood by Coagulation assayOrdered By: Carlos Cavazos on 04-09-2023 INR Coag (Bld) [Relative time] 2.1 {INR} [facility] Laboratory - CoagulationOrde red By: aCrlos Cavazos on 04-09-2023 PT Coag (PPP) [Time] 23.9 s 11.7-14.9 [facility] INR in Blood by Coagulation assayOrdered By: Carlos Cavazos on 04-02-2023 INR Coag (Bld) [Relative time] 2.2 {INR} [facility] Laboratory - CoagulationOrde red By: Carlos Cavazos on 04-02-2023 PT Coag (PPP) [Time] 24.5 s 11.7-14.9 [facility] INR in Blood by Coagulation assayOrdered By: Carlos Cavazos on 03-26-2023 INR Coag (Bld) [Relative time] 1.7 {INR} [facility] Laboratory - CoagulationOrde red By: Carlos Cavazos on 03-26-2023 PT Coag (PPP) [Time] 19.9 s 11.7-14.9 [facility] INR in Blood by Coagulation assayOrdered By: Carlos Cavazos on 03-22-2023 INR Coag (Bld) [Relative time] 1.3 {INR} [facility] Laboratory - CoagulationOrde red By: Carlos Cavazos on 03-22-2023 PT Coag (PPP) [Time] 16.4 s 11.7-14.9 [facility] INR in Blood by Coagulation assayOrdered By: Carlos Cavazos on 03-08-2023 INR Coag (Bld) [Relative time] 2.0 {INR} [facility] Laboratory - CoagulationOrde red By: Carlos Cavazos on 03-08-2023 PT Coag (PPP) [Time] 22.5 s 11.7-14.9 [facility] - CoagulationOrde red By: Carlos Cavazos on 02-22-2023 INR Coag (Bld) [Relative time] 2.2 {INR} [facility] Comment on above: Critical Value > 4.0 Whole blood prothrombin time Ordered By: Carlos Cavazos on 02-22-2023 PT Coag (Bld) [Time] 24.0 s 11.7-14.9 [facility] INR in Blood by Coagulation assayOrdered By: Cliff Bruner on 02-15-2023 INR Coag (Bld) [Relative time] 2.0 {INR} [facility] - CoagulationOrde red By: Cliff Bruner on 02-15-2023 PT Coag (PPP) [Time] 22.8 s 11.7-14.9 [facility] INR in Blood by Coagulation assayOrdered By: Carlos Cavazos on 02-08-2023 INR Coag (Bld) [Relative time] 2.1 {INR} [facility] - CoagulationOrde red By: Carlos Cavazos on 02-08-2023 PT Coag (PPP) [Time] 23.5 s 11.7-14.9 [facility] INR in Blood by Coagulation assayOrdered By: Carlos Cavazos on 01-31-2023 INR Coag (Bld) [Relative time] 2.0 {INR} [facility] - CoagulationOrde red By: Carlos Cavaozs on 01-31-2023 PT Coag (PPP) [Time] 22.4 s 11.7-14.9 [facility] - CoagulationOrde red By: Carlos Cavazos on 01-29-2023 INR Coag (Bld) [Relative time] 1.8 {INR} [facility] Comment on above: Critical Value > 4.0 Whole blood prothrombin time Ordered By: Carlos Cavazos on 01-29-2023 PT Coag (Bld) [Time] 19.9 s 11.7-14.9 [facility] INR in Blood by Coagulation assayOrdered By: Carlos Cavazos on 01-26-2023 INR Coag (Bld) [Relative time] 1.5 {INR} [facility] - CoagulationOrde red By: Carlos Cavazos on 01-26-2023 PT Coag (PPP) [Time] 18.3 s 11.7-14.9 [facility] INR in Blood by Coagulation assayOrdered By: Carlos Cavazos on 01-24-2023 INR Coag (Bld) [Relative time] 1.3 {INR} [facility] - CoagulationOrde red By: Carlos Cavazos on 01-24-2023 PT Coag (PPP) [Time] 16.2 s 11.7-14.9 [facility] Basophil percentageOrdered B y: Carlos Cavazos on 01-22-2023 Basophil percentage 0 SEEN /hpf 0-5 [facility] Bilirubin Test strip Ql (U)O rdered By: Carlos Cavazos on 01-22-2023 Bilirubin Ql (U) Negative Negative [facility] Calcium oxalate crystals det ection in urine sediment by light microscopyOrdered By: Carlos Cavazos on 01-22-2023 Calcium oxalate crystals LM Ql (Urine sed) 1+ /hpf [facility] Culture, urineOrdered By: Sharif Crouch on 01-22-2023 Bacteria identified Cx Nom (U) Positive [facility] Ketones Test strip Ql (U)Ord ered By: Carlos Cavazos on 01-22-2023 Ketones Ql (U) Negative Negative [facility] Mucus LM Ql (Urine sed)Order ed By: Carlos Cavazos on 01-22-2023 Mucus Ql (Urine sed) 1+ /hpf [facility] Nitrite Test strip Ql (U)Ord ered By: Carlos Cavazos on 01-22-2023 Nitrite Ql (U) Negative Negative [facility] Protein Test strip Ql (U)Ord ered By: Carlos Cavazos on 01-22-2023 Protein Ql (U) Negative Negative [facility] Squamous epithelial cells de tection in urine sediment by light microscopyOrdered By: Carlos Cavazos on 01-22-2023 Epithelial cells.squamous LM Ql (Urine sed) 0 SEEN /hpf 0-5 [facility] Urine blood detectionOrdered By: Carlos Cavazos on 01-22-2023 RBC Ql (U) Negative Negative [facility] RBC Ql (U) 0 SEEN /hpf 0-5 [facility] Urine clarityOrdered By: Ted Cavazos on 01-22-2023 Clarity (U) Sl. Cloudy Clear [facility] Urine color determinationOrd ered By: Carlos Cavazos on 01-22-2023 Color (U) Yellow Yellow [facility] Urine glucose detectionOrder ed By: Carlos Cavazos on 01-22-2023 Glucose Ql (U) Normal mg/dl Normal [facility] Urine leukocyte esterase det ection by dipstickOrdered By: Carlos Cavazos on 01-22-2023 Leukocyte esterase Test strip Ql (U) Negative Negative [facility] Urine pHOrdered By: Carlos flores on 01-22-2023 pH (U) 5.0 [pH] 5.0 - 8.0 [facility] Urine sediment bacteria coun t by microscopy (number/high power field)Ordered By: Carlos Cavazos on 01-22-2023 Bacteria LM.HPF (Urine sed) [#/Area] 2 /[HPF] None Seen [facility] Urine specific gravity measu rementOrdered By: Carlos Cavazos on 01-22-2023 Specific gravity (U) [Rel density] 1.025 1.002-1.030 [facility] Urobilinogen Auto test strip Ql (U)Ordered By: Carlos Cavazos on 01-22-2023 Urobilinogen Ql (U) Normal mg/dl Normal [facility] INR in Blood by Coagulation assayOrdered By: Carlos Cavazos on 01-10-2023 INR Coag (Bld) [Relative time] 2.0 {INR} [facility] - CoagulationOrde red By: Carlos Cavazos on 01-10-2023 PT Coag (PPP) [Time] 22.6 s 11.7-14.9 [facility] INR in Blood by Coagulation assayOrdered By: Carlos Cavazos on 12-27-2022 INR Coag (Bld) [Relative time] 2.1 {INR} [facility] - CoagulationOrde red By: Carlos Cavazos on 12-27-2022 PT Coag (PPP) [Time] 24.1 s 11.7-14.9 [facility] INR in Blood by Coagulation assayOrdered By: Carlos Cavazos on 12-21-2022 INR Coag (Bld) [Relative time] 2.4 {INR} [facility] - CoagulationOrde red By: Carlos Cavazos on 12-21-2022 PT Coag (PPP) [Time] 26.7 s 11.7-14.9 [facility] - CoagulationOrde red By: Carlos Cavazos on 12-14-2022 INR Coag (Bld) [Relative time] 2.3 {INR} [facility] Comment on above: Critical Value > 4.0 Whole blood prothrombin time Ordered By: Carlos Cavazos on 12-14-2022 PT Coag (Bld) [Time] 25.2 s 11.7-14.9 [facility] - CoagulationOrde red By: Carlos Cavazos on 12-07-2022 INR Coag (Bld) [Relative time] 2.5 {INR} [facility] Comment on above: Critical Value > 4.0 Whole blood prothrombin time Ordered By: Carlos Cavazos on 12-07-2022 PT Coag (Bld) [Time] 26.9 s 11.7-14.9 [facility] Amorphous sediment detection in urine sediment by light microscopyOrdered By: Carlos Cavazos on 11-24-2022 Amorphous sediment LM Ql (Urine sed) 1+ [facility] Basophil percentageOrdered B y: aCrlos Cavazos on 11-24-2022 Basophil percentage 0 SEEN /hpf 0-5 [facility] Bilirubin [Mass/Vol] 0.30 mg/dL 0.20-1.00 [facility] Comment on above: For patients on eltr ombopag therapy, use of [facility] [place] TBIL is not recommended. Chloride [Moles/Vol] 107 mmol/L 98-107 [facility] Glucose [Mass/Vol] 95 mg/dL 74-106 [facility] Potassium [Moles/Vol] 4.2 mmol/L 3.5-5.1 [facility] Protein [Mass/Vol] 6.9 g/dL 6.4-8.2 [facility] Sodium [Moles/Vol] 138 mmol/L 136-145 [facility] WBC (Bld) [#/Vol] 10.4 10*3/uL 4.4-11.0 [place] Bilirubin Test strip Ql (U)O rdered By: Carlos Cavazos on 11-24-2022 Bilirubin Ql (U) Negative Negative [facility] Blood erythrocytes count (nu mber/volume)Ordered By: Carlos Cavazos on 11-24-2022 RBC (Bld) [#/Vol] 4.44 10*6/uL 4.6-6.2 [place] Blood hemoglobin measurement (mass/volume)Ordered By: Carlos Cavazos on 11-24-2022 Hemoglobin (Bld) [Mass/Vol] 11.8 g/dL 13.0-16.5 [facility] Blood platelet mean volumeOr dered By: Carlos Cavazos on 11-24-2022 Platelet mean volume (Bld) [Entitic vol] 9.7 fL 6.2-12.0 [facility] Calcium oxalate crystals det ection in urine sediment by light microscopyOrdered By: Carlos Cavazos on 11-24-2022 Calcium oxalate crystals LM Ql (Urine sed) RARE /hpf [facility] Culture, urineOrdered By: Sharif Crouch on 11-24-2022 Bacteria identified Cx Nom (U) Positive [facility] Determination of erythrocyte mean corpuscular volume (MCV)Ordered By: Carlos Cavazos on 11-24-2022 MCV (RBC) [Entitic vol] 84.7 fL 80-94 [facility] Hematocrit Auto (Bld) [Volum e fraction]Ordered By: Carlos Cavazos on 11-24-2022 Hematocrit (Bld) [Volume fraction] 37.6 % 40-54 [facility] Ketones Test strip Ql (U)Ord ered By: Carlos Cavazos on 11-24-2022 Ketones Ql (U) Negative Negative [facility] - Chemistry and C hemistry - challengeOrdered By: Carlos Cavazos on 11-24-2022 ALP [Catalytic activity/Vol] 103 U/L 45-117 [facility] ALT [Catalytic activity/Vol] 14 U/L 16-61 [facility] CO2 [Moles/Vol] 26.0 mmol/L 21.0-32.0 [facility] Globulin (S) [Mass/Vol] 4.0 g/dL 2.2-4.2 [facility] Urea nitrogen/Creatinine [Mass ratio] 24.1 mg/mg 10-20 [facility] - Hematology and Cell countsOrdered By: Carlos Cavazos on 11-24-2022 Erythrocyte distribution width (RBC) [Entitic vol] 49.4 fL 35.1-43.9 [facility] Erythrocyte distribution width (RBC) [Ratio] 16.0 % 11.6-14.6 [facility] MCH (RBC) [Entitic mass] 26.6 pg 27.0-32.0 [facility] MCHC Auto (RBC) [Mass/Vol]Or dered By: Carlos Cavazos on 11-24-2022 MCHC (RBC) [Mass/Vol] 31.4 g/dL 32-36 [facility] Mucus LM Ql (Urine sed)Order ed By: Carlos Cavazos on 11-24-2022 Mucus Ql (Urine sed) 0 SEEN /hpf [facility] Nitrite Test strip Ql (U)Ord ered By: Carlos Cavazos on 11-24-2022 Nitrite Ql (U) Negative Negative [facility] No Panel InformationOrdered By: Carlos Cavazos on 11-24-2022 Estimated GFR (MDRD) Amer 118 mL/min >60 [facility] Comment on above: GFR Calc Estimated GFR (MDRD) Non-Af Amer 97 mL/min >60 [facility] Comment on above: Non- GFR Calc Platelets bldOrdered By: Ted Cavazos on 11-24-2022 Platelets (Bld) [#/Vol] 309 10*3/uL 150-450 [facility] Protein Test strip Ql (U)Ord ered By: Carlos Cavazos on 11-24-2022 Protein Ql (U) Negative Negative [facility] Serum or plasma albumin oral urement (mass/volume)Ordered By: Carlos Cavazos on 11-24-2022 Albumin [Mass/Vol] 2.9 g/dL 3.2-5.0 [facility] Serum or plasma albumin/glob ulin mass ratioOrdered By: Carlos Cavazos on 11-24-2022 Albumin/Globulin [Mass ratio] 0.7 {ratio} 0.9-2.4 [facility] Serum or plasma calcium oral urement (mass/volume)Ordered By: Carlos Cavazos on 11-24-2022 Calcium [Mass/Vol] 8.7 mg/dL 8.5-10.1 [facility] Serum or plasma creatinine m easurement (mass/volume)Ordered By: Carlos Cavazos on 11-24-2022 Creatinine [Mass/Vol] 0.83 mg/dL 0.70-1.30 [facility] Comment on above: The validity of the calculated GFR & GFRAA in patients over 70 years has not been determined. Clinical correlation is essential. Serum or plasma urea nitroge n measurement (mass/volume)Ordered By: Carlos Cavazos on 11-24-2022 Urea nitrogen [Mass/Vol] 20 mg/dL 7-18 [facility] Squamous epithelial cells de tection in urine sediment by light microscopyOrdered By: Carlos Cavazos on 11-24-2022 Epithelial cells.squamous LM Ql (Urine sed) 0 SEEN /hpf 0-5 [facility] Thin prep Papanicolaou smear with manual screeningOrdered By: Carlos Cavazos on 11-24-2022 Thin prep Papanicolaou smear with manual screening 10 U/L 15-37 [facility] Thin prep Papanicolaou smear with manual screening 5 5-15 [facility] Urine blood detectionOrdered By: Carlos Cavazos on 11-24-2022 RBC Ql (U) Negative Negative [facility] RBC Ql (U) 0 SEEN /hpf 0-5 [facility] Urine clarityOrdered By: Ted Cavazos on 11-24-2022 Clarity (U) Clear Clear [facility] Urine color determinationOrd ered By: Carlos Cavazos on 11-24-2022 Color (U) Yellow Yellow [facility] Urine glucose detectionOrder ed By: Carlos Cavazos on 11-24-2022 Glucose Ql (U) Normal mg/dl Normal [facility] Urine leukocyte esterase det ection by dipstickOrdered By: Carlos Cavazos on 11-24-2022 Leukocyte esterase Test strip Ql (U) Negative Negative [facility] Urine pHOrdered By: Carlos flores on 11-24-2022 pH (U) 7.0 [pH] 5.0 - 8.0 [facility] Urine sediment bacteria coun t by microscopy (number/high power field)Ordered By: Carlos Cavazos on 11-24-2022 Bacteria LM.HPF (Urine sed) [#/Area] 0 /[HPF] None Seen [facility] Urine specific gravity measu rementOrdered By: Carlos Cavazos on 11-24-2022 Specific gravity (U) [Rel density] 1.010 1.002-1.030 [facility] Urobilinogen Auto test strip Ql (U)Ordered By: Carlos Cavazos on 11-24-2022 Urobilinogen Ql (U) Normal mg/dl Normal [facility] - CoagulationOrde red By: Carlos Cavazos on 11-23-2022 INR Coag (Bld) [Relative time] 2.2 {INR} [facility] Comment on above: Critical Value > 4.0 Whole blood prothrombin time Ordered By: Carlos Cavazos on 11-23-2022 PT Coag (Bld) [Time] 24.5 s 11.7-14.9 [facility] Basophil percentageOrdered B y: Carlos Cavazos on 11-22-2022 Chloride [Moles/Vol] 105 mmol/L 98-107 [facility] Glucose [Mass/Vol] 91 mg/dL 74-106 [facility] Potassium [Moles/Vol] 4.1 mmol/L 3.5-5.1 [facility] Sodium [Moles/Vol] 138 mmol/L 136-145 [facility] WBC (Bld) [#/Vol] 12.0 10*3/uL 4.4-11.0 [place] Blood erythrocytes count (nu mber/volume)Ordered By: Carlos Cavazos on 11-22-2022 RBC (Bld) [#/Vol] 4.65 10*6/uL 4.6-6.2 [place] Blood hemoglobin measurement (mass/volume)Ordered By: Carlos Cavazos on 11-22-2022 Hemoglobin (Bld) [Mass/Vol] 12.4 g/dL 13.0-16.5 [facility] Blood platelet mean volumeOr dered By: Carlos Cavazos on 11-22-2022 Platelet mean volume (Bld) [Entitic vol] 10.3 fL 6.2-12.0 [facility] Determination of erythrocyte mean corpuscular volume (MCV)Ordered By: Carlos Cavazos on 11-22-2022 MCV (RBC) [Entitic vol] 86.0 fL 80-94 [facility] Hematocrit Auto (Bld) [Volum e fraction]Ordered By: Carlos Cavazos on 11-22-2022 Hematocrit (Bld) [Volume fraction] 40.0 % 40-54 [facility] - Chemistry and C hemistry - challengeOrdered By: Carlos Cavazos on 11-22-2022 CO2 [Moles/Vol] 25.0 mmol/L 21.0-32.0 [facility] Urea nitrogen/Creatinine [Mass ratio] 23.6 mg/mg 10-20 [facility] - Hematology and Cell countsOrdered By: Carlos Cavazos on 11-22-2022 Erythrocyte distribution width (RBC) [Entitic vol] 50.0 fL 35.1-43.9 [facility] Erythrocyte distribution width (RBC) [Ratio] 15.9 % 11.6-14.6 [facility] MCH (RBC) [Entitic mass] 26.7 pg 27.0-32.0 [facility] MCHC Auto (RBC) [Mass/Vol]Or dered By: Carlos Cavazos on 11-22-2022 MCHC (RBC) [Mass/Vol] 31.0 g/dL 32-36 [facility] No Panel InformationOrdered By: Carlos Cavazos on 11-22-2022 Estimated GFR (MDRD) Amer 115 mL/min >60 [facility] Comment on above: GFR Calc Estimated GFR (MDRD) Non-Af Amer 95 mL/min >60 [facility] Comment on above: Non- GFR Calc Platelets bldOrdered By: Ted Cavazos on 11-22-2022 Platelets (Bld) [#/Vol] 320 10*3/uL 150-450 [facility] Serum or plasma calcium oral urement (mass/volume)Ordered By: Carlos Cavazos on 11-22-2022 Calcium [Mass/Vol] 8.7 mg/dL 8.5-10.1 [facility] Serum or plasma creatinine m easurement (mass/volume)Ordered By: Carlos Cavazos on 11-22-2022 Creatinine [Mass/Vol] 0.85 mg/dL 0.70-1.30 [facility] Comment on above: The validity of the calculated GFR & GFRAA in patients over 70 years has not been determined. Clinical correlation is essential. Serum or plasma urea nitroge n measurement (mass/volume)Ordered By: Carlos Cavazos on 11-22-2022 Urea nitrogen [Mass/Vol] 20 mg/dL 7-18 [facility] Thin prep Papanicolaou smear with manual screeningOrdered By: Carlos Cavazos on 11-22-2022 Thin prep Papanicolaou smear with manual screening 8 5-15 [facility] - CoagulationOrde red By: Carlos Cavazos on 11-09-2022 INR Coag (Bld) [Relative time] 2.1 {INR} [facility] Comment on above: Critical Value > 4.0 Whole blood prothrombin time Ordered By: Carlos Cavazos on 11-09-2022 PT Coag (Bld) [Time] 22.6 s 11.7-14.9 [facility] - CoagulationOrde red By: Carlos Cavazos on 10-26-2022 INR Coag (Bld) [Relative time] 2.6 {INR} [facility] Comment on above: Critical Value > 4.0 Whole blood prothrombin time Ordered By: Carlos Cavazos on 10-26-2022 PT Coag (Bld) [Time] 28.5 s 11.7-14.9 [facility] - CoagulationOrde red By: Carlos Cavazos on 10-12-2022 INR Coag (Bld) [Relative time] 2.4 {INR} [facility] Comment on above: Critical Value > 4.0 Whole blood prothrombin time Ordered By: Carlos Cavazos on 10-12-2022 PT Coag (Bld) [Time] 26.4 s 11.7-14.9 [facility] - CoagulationOrde red By: Carlos Cavazos on 10-05-2022 INR Coag (Bld) [Relative time] 2.6 {INR} [facility] Comment on above: Critical Value > 4.0 Whole blood prothrombin time Ordered By: Carlos Cavazos on 10-05-2022 PT Coag (Bld) [Time] 28.0 s 11.7-14.9 [facility] - CoagulationOrde red By: Carlos Cavazos on 09-28-2022 INR Coag (Bld) [Relative time] 2.7 {INR} [facility] Comment on above: Critical Value > 4.0 Whole blood prothrombin time Ordered By: Carlos Cavazos on 09-28-2022 PT Coag (Bld) [Time] 28.9 s 11.7-14.9 [facility] - CoagulationOrde red By: Carlos Cavazos on 09-14-2022 INR Coag (Bld) [Relative time] 2.5 {INR} [facility] Comment on above: Critical Value > 4.0 Whole blood prothrombin time Ordered By: Carlos Cavazos on 09-14-2022 PT Coag (Bld) [Time] 27.4 s 11.7-14.9 [facility] - CoagulationOrde red By: Carlos Cavazos on 08-31-2022 INR Coag (Bld) [Relative time] 2.3 {INR} [facility] Comment on above: Critical Value > 4.0 Whole blood prothrombin time Ordered By: Carlos Cavazos on 08-31-2022 PT Coag (Bld) [Time] 25.4 s 11.7-14.9 [facility] Basophil percentageOrdered B y: Carlos Cavazos on 08-23-2022 Chloride [Moles/Vol] 108 mmol/L 98-107 [facility] Glucose [Mass/Vol] 86 mg/dL 74-106 [facility] Potassium [Moles/Vol] 4.3 mmol/L 3.5-5.1 [facility] Sodium [Moles/Vol] 136 mmol/L 136-145 [facility] WBC (Bld) [#/Vol] 10.0 10*3/uL 4.4-11.0 [place] Blood erythrocytes count (nu mber/volume)Ordered By: Carlos Cavazos on 08-23-2022 RBC (Bld) [#/Vol] 4.77 10*6/uL 4.6-6.2 [place] Blood hemoglobin measurement (mass/volume)Ordered By: Carlos Cavazos on 08-23-2022 Hemoglobin (Bld) [Mass/Vol] 12.5 g/dL 13.0-16.5 [facility] Blood platelet mean volumeOr dered By: Carlos Cavazos on 08-23-2022 Platelet mean volume (Bld) [Entitic vol] 11.0 fL 6.2-12.0 [facility] Determination of erythrocyte mean corpuscular volume (MCV)Ordered By: Carlos Cavazos on 08-23-2022 MCV (RBC) [Entitic vol] 84.3 fL 80-94 [facility] Hematocrit Auto (Bld) [Volum e fraction]Ordered By: Carlos Cavazos on 08-23-2022 Hematocrit (Bld) [Volume fraction] 40.2 % 40-54 [facility] Laboratory - Chemistry and C hemistry - challengeOrdered By: Carlos Cavzaos on 08-23-2022 CO2 [Moles/Vol] 24.0 mmol/L 21.0-32.0 [facility] Urea nitrogen/Creatinine [Mass ratio] 22.8 mg/mg 10-20 [facility] - Hematology and Cell countsOrdered By: Carlos Cavazos on 08-23-2022 Erythrocyte distribution width (RBC) [Entitic vol] 49.3 fL 35.1-43.9 [facility] Erythrocyte distribution width (RBC) [Ratio] 16.0 % 11.6-14.6 [facility] MCH (RBC) [Entitic mass] 26.2 pg 27.0-32.0 [facility] MCHC Auto (RBC) [Mass/Vol]Or dered By: Carlos Cavazos on 08-23-2022 MCHC (RBC) [Mass/Vol] 31.1 g/dL 32-36 [facility] No Panel InformationOrdered By: Carlos Cavazos on 08-23-2022 Estimated GFR (MDRD) Amer 134 mL/min >60 [facility] Comment on above: GFR Calc Estimated GFR (MDRD) Non-Af Amer 110 mL/min >60 [facility] Comment on above: Non- GFR Calc Platelets bldOrdered By: Ted Cavazos on 08-23-2022 Platelets (Bld) [#/Vol] 268 10*3/uL 150-450 [facility] Serum or plasma calcium oral urement (mass/volume)Ordered By: Carlos Cavazos on 08-23-2022 Calcium [Mass/Vol] 9.1 mg/dL 8.5-10.1 [facility] Serum or plasma creatinine m easurement (mass/volume)Ordered By: Carlos Cavazos on 08-23-2022 Creatinine [Mass/Vol] 0.74 mg/dL 0.70-1.30 [facility] Comment on above: The validity of the calculated GFR & GFRAA in patients over 70 years has not been determined. Clinical correlation is essential. Serum or plasma urea nitroge n measurement (mass/volume)Ordered By: Carlos Cavazos on 08-23-2022 Urea nitrogen [Mass/Vol] 17 mg/dL 7-18 [facility] Thin prep Papanicolaou smear with manual screeningOrdered By: Carlos Cavazos on 08-23-2022 Thin prep Papanicolaou smear with manual screening 4 5-15 [facility] - CoagulationOrde red By: Carlos Cavazos on 08-17-2022 INR Coag (Bld) [Relative time] 2.8 {INR} [facility] Comment on above: Critical Value > 4.0 Whole blood prothrombin time Ordered By: Carlos Cavazos on 08-17-2022 PT Coag (Bld) [Time] 29.6 s 11.7-14.9 [facility] - CoagulationOrde red By: Carlos Cavazos on 08-14-2022 INR Coag (Bld) [Relative time] 3.9 {INR} [facility] Comment on above: Critical Value > 4.0 Whole blood prothrombin time Ordered By: Carlos Cavazos on 08-14-2022 PT Coag (Bld) [Time] 40.6 s 11.7-14.9 [facility] - CoagulationOrde red By: Carlos Cavazos on 07-31-2022 INR Coag (Bld) [Relative time] 2.5 {INR} [facility] Comment on above: Critical Value > 4.0 Whole blood prothrombin time Ordered By: Carlos Cavazos on 07-31-2022 PT Coag (Bld) [Time] 26.8 s 11.7-14.9 [facility] INR in Blood by Coagulation assayOrdered By: Carlos Cavazos on 07-24-2022 INR Coag (Bld) [Relative time] 2.3 {INR} [facility] - CoagulationOrde red By: Carlos Cavazos on 07-24-2022 PT Coag (PPP) [Time] 24.7 s 11.7-14.9 [facility] - CoagulationOrde red By: Carlos Cavazos on 07-20-2022 INR Coag (Bld) [Relative time] 1.9 {INR} [facility] Comment on above: Critical Value > 4.0 Whole blood prothrombin time Ordered By: Carlos Cavazos on 07-20-2022 PT Coag (Bld) [Time] 20.6 s 11.7-14.9 [facility] - CoagulationOrde red By: Carlos Cavazos on 07-17-2022 INR Coag (Bld) [Relative time] 1.3 {INR} [facility] Comment on above: Critical Value > 4.0 Whole blood prothrombin time Ordered By: Carlos Cavazos on 07-17-2022 PT Coag (Bld) [Time] 15.9 s 11.7-14.9 [facility] Basophil percentageOrdered B y: Carlos Cavazos on 07-11-2022 Chloride [Moles/Vol] 105 mmol/L 98-107 [facility] Glucose [Mass/Vol] 97 mg/dL 74-106 [facility] Potassium [Moles/Vol] 3.9 mmol/L 3.5-5.1 [facility] Sodium [Moles/Vol] 140 mmol/L 136-145 [facility] WBC (Bld) [#/Vol] 9.4 10*3/uL 4.4-11.0 [facility] Blood erythrocytes count (nu mber/volume)Ordered By: Carlos Cavazos on 07-11-2022 RBC (Bld) [#/Vol] 4.66 10*6/uL 4.6-6.2 [place] Blood hemoglobin measurement (mass/volume)Ordered By: Carlos Cavazos on 07-11-2022 Hemoglobin (Bld) [Mass/Vol] 12.0 g/dL 13.0-16.5 [facility] Blood platelet mean volumeOr dered By: Carlos Cavazos on 07-11-2022 Platelet mean volume (Bld) [Entitic vol] 10.4 fL 6.2-12.0 [facility] Determination of erythrocyte mean corpuscular volume (MCV)Ordered By: Carlos Cavazos on 07-11-2022 MCV (RBC) [Entitic vol] 83.7 fL 80-94 [facility] Hematocrit Auto (Bld) [Volum e fraction]Ordered By: Carlos Cavazos on 07-11-2022 Hematocrit (Bld) [Volume fraction] 39.0 % 40-54 [facility] Laboratory - Chemistry and C hemistry - challengeOrdered By: Carlos Cavazos on 07-11-2022 CO2 [Moles/Vol] 28.0 mmol/L 21.0-32.0 [facility] Urea nitrogen/Creatinine [Mass ratio] 23.0 mg/mg 10-20 [facility] Laboratory - Hematology and Cell countsOrdered By: Carlos Cavazos on 07-11-2022 Erythrocyte distribution width (RBC) [Entitic vol] 51.0 fL 35.1-43.9 [facility] Erythrocyte distribution width (RBC) [Ratio] 16.8 % 11.6-14.6 [facility] MCH (RBC) [Entitic mass] 25.8 pg 27.0-32.0 [facility] MCHC Auto (RBC) [Mass/Vol]Or dered By: Carlos Cavazos on 07-11-2022 MCHC (RBC) [Mass/Vol] 30.8 g/dL 32-36 [facility] No Panel InformationOrdered By: Carlos Cavazos on 07-11-2022 Estimated GFR (MDRD) Amer 126 mL/min >60 [facility] Comment on above: GFR Calc Estimated GFR (MDRD) Non-Af Amer 104 mL/min >60 [facility] Comment on above: Non- GFR Calc Platelets bldOrdered By: Ted Cavazos on 07-11-2022 Platelets (Bld) [#/Vol] 291 10*3/uL 150-450 [facility] Serum or plasma calcium oral urement (mass/volume)Ordered By: Carlos Cavazos on 07-11-2022 Calcium [Mass/Vol] 9.2 mg/dL 8.5-10.1 [facility] Serum or plasma creatinine m easurement (mass/volume)Ordered By: Carlos Cavazos on 07-11-2022 Creatinine [Mass/Vol] 0.78 mg/dL 0.70-1.30 [facility] Comment on above: The validity of the calculated GFR & GFRAA in patients over 70 years has not been determined. Clinical correlation is essential. Serum or plasma urea nitroge n measurement (mass/volume)Ordered By: Carlos Cavazos on 07-11-2022 Urea nitrogen [Mass/Vol] 18 mg/dL 7-18 [facility] Thin prep Papanicolaou smear with manual screeningOrdered By: Carlos Cavazos on 07-11-2022 Thin prep Papanicolaou smear with manual screening 7 5-15 [facility] Laboratory - CoagulationOrde red By: Carlos Cavazos on 07-10-2022 INR Coag (Bld) [Relative time] 1.8 {INR} [facility] Comment on above: Critical Value > 4.0 Whole blood prothrombin time Ordered By: Carlos Cavazos on 07-10-2022 PT Coag (Bld) [Time] 21.0 s 11.7-14.9 [facility] Laboratory - CoagulationOrde red By: Carlos Cavazos on 07-03-2022 INR Coag (Bld) [Relative time] 1.9 {INR} [facility] Comment on above: Critical Value > 4.0 Whole blood prothrombin time Ordered By: Carlos Cavazos on 07-03-2022 PT Coag (Bld) [Time] 22.7 s 11.7-14.9 [facility] INR in Blood by Coagulation assayOrdered By: Carlos Cavazos on 06-27-2022 INR Coag (Bld) [Relative time] 2.9 {INR} [facility] Laboratory - CoagulationOrde red By: Carlos Cavazos on 06-27-2022 PT Coag (PPP) [Time] 29.9 s 11.7-14.9 [facility] Laboratory - CoagulationOrde red By: Carlos Cavazos on 06-13-2022 INR Coag (Bld) [Relative time] 2.1 {INR} [facility] Comment on above: Critical Value > 4.0 Whole blood prothrombin time Ordered By: Carlos Cavazos on 06-13-2022 PT Coag (Bld) [Time] 24.4 s 11.7-14.9 [facility] Laboratory - CoagulationOrde red By: Carlos Cavazos on 06-06-2022 INR Coag (Bld) [Relative time] 1.5 {INR} [facility] Comment on above: Critical Value > 4.0 Whole blood prothrombin time Ordered By: Carlos Cavazos on 06-06-2022 PT Coag (Bld) [Time] 18.4 s 11.7-14.9 [facility] Basophil percentageOrdered B y: Carlos Cavazos on 05-30-2022 Chloride [Moles/Vol] 105 mmol/L 98-107 [facility] Glucose [Mass/Vol] 95 mg/dL 74-106 [facility] Potassium [Moles/Vol] 3.9 mmol/L 3.5-5.1 [facility] Sodium [Moles/Vol] 140 mmol/L 136-145 [facility] WBC (Bld) [#/Vol] 7.6 10*3/uL 4.4-11.0 [facility] Blood erythrocytes count (nu mber/volume)Ordered By: Carlos Cavazos on 05-30-2022 RBC (Bld) [#/Vol] 4.79 10*6/uL 4.6-6.2 [place] Blood hemoglobin measurement (mass/volume)Ordered By: Carlos Cavazos on 05-30-2022 Hemoglobin (Bld) [Mass/Vol] 12.1 g/dL 13.0-16.5 [facility] Blood platelet mean volumeOr dered By: Carlos Cavazos on 05-30-2022 Platelet mean volume (Bld) [Entitic vol] 10.4 fL 6.2-12.0 [facility] Determination of erythrocyte mean corpuscular volume (MCV)Ordered By: Carlos Cavazos on 05-30-2022 MCV (RBC) [Entitic vol] 82.5 fL 80-94 [facility] Hematocrit Auto (Bld) [Volum e fraction]Ordered By: Carlos Cavazos on 05-30-2022 Hematocrit (Bld) [Volume fraction] 39.5 % 40-54 [facility] INR in Blood by Coagulation assayOrdered By: Carlos Cavazos on 05-30-2022 INR Coag (Bld) [Relative time] 1.9 {INR} [facility] Laboratory - Chemistry and C hemistry - challengeOrdered By: Carlos Cavazos on 05-30-2022 CO2 [Moles/Vol] 27.0 mmol/L 21.0-32.0 [facility] Urea nitrogen/Creatinine [Mass ratio] 21.4 mg/mg 10-20 [facility] Laboratory - CoagulationOrde red By: Carlos Cavazos on 05-30-2022 PT Coag (PPP) [Time] 21.6 s 11.7-14.9 [facility] Laboratory - Hematology and Cell countsOrdered By: Carlos Cavazos on 05-30-2022 Erythrocyte distribution width (RBC) [Entitic vol] 48.8 fL 35.1-43.9 [facility] Erythrocyte distribution width (RBC) [Ratio] 16.2 % 11.6-14.6 [facility] MCH (RBC) [Entitic mass] 25.3 pg 27.0-32.0 [facility] MCHC Auto (RBC) [Mass/Vol]Or dered By: Carlos Cavazos on 05-30-2022 MCHC (RBC) [Mass/Vol] 30.6 g/dL 32-36 [facility] No Panel InformationOrdered By: Carlos Cavazos on 05-30-2022 Estimated GFR (MDRD) Amer 133 mL/min >60 [facility] Comment on above: GFR Calc Estimated GFR (MDRD) Non-Af Amer 110 mL/min >60 [facility] Comment on above: Non- GFR Calc Platelets bldOrdered By: Ted Cavazos on 05-30-2022 Platelets (Bld) [#/Vol] 308 10*3/uL 150-450 [facility] Serum or plasma calcium oral urement (mass/volume)Ordered By: Carlos Cavazos on 05-30-2022 Calcium [Mass/Vol] 9.1 mg/dL 8.5-10.1 [facility] Serum or plasma creatinine m easurement (mass/volume)Ordered By: Carlos Cavazos on 05-30-2022 Creatinine [Mass/Vol] 0.75 mg/dL 0.70-1.30 [facility] Comment on above: The validity of the calculated GFR & GFRAA in patients over 70 years has not been determined. Clinical correlation is essential. Serum or plasma urea nitroge n measurement (mass/volume)Ordered By: Carlos Cavazos on 05-30-2022 Urea nitrogen [Mass/Vol] 16 mg/dL 7-18 [facility] Thin prep Papanicolaou smear with manual screeningOrdered By: Carlos Cavazos on 05-30-2022 Thin prep Papanicolaou smear with manual screening 8 5-15 [facility] Laboratory - CoagulationOrde red By: Carlos Cavazos on 05-16-2022 INR Coag (Bld) [Relative time] 2.6 {INR} [facility] Comment on above: Critical Value > 4.0 Whole blood prothrombin time Ordered By: Carlos Cavazos on 05-16-2022 PT Coag (Bld) [Time] 29.9 s 11.7-14.9 [facility] Laboratory - CoagulationOrde red By: Carlos Cavazos on 05-02-2022 INR Coag (Bld) [Relative time] 2.0 {INR} [facility] Comment on above: Critical Value > 4.0 Whole blood prothrombin time Ordered By: Carlos Cavazos on 05-02-2022 PT Coag (Bld) [Time] 23.2 s 11.7-14.9 [facility] Laboratory - CoagulationOrde red By: Carlos Cavazos on 04-27-2022 INR Coag (Bld) [Relative time] 2.7 {INR} [facility] Comment on above: Critical Value > 4.0 Whole blood prothrombin time Ordered By: Carlos Cavazos on 04-27-2022 PT Coag (Bld) [Time] 31.1 s 11.7-14.9 [facility] Laboratory - CoagulationOrde red By: Carlos Cavazos on 04-26-2022 INR Coag (Bld) [Relative time] 2.8 {INR} [facility] Comment on above: Critical Value > 4.0 Whole blood prothrombin time Ordered By: Carlos Cavazos on 04-26-2022 PT Coag (Bld) [Time] 32.6 s 11.7-14.9 [facility] Laboratory - CoagulationOrde red By: Carlos Cavazos on 04-11-2022 INR Coag (Bld) [Relative time] 2.9 {INR} [facility] Comment on above: Critical Value > 4.0 Whole blood prothrombin time Ordered By: Carlos Cavazos on 04-11-2022 PT Coag (Bld) [Time] 32.8 s 11.7-14.9 [facility] Laboratory - CoagulationOrde red By: Carlos Cavazos on 03-28-2022 INR Coag (Bld) [Relative time] 2.1 {INR} [facility] Comment on above: Critical Value > 4.0 Whole blood prothrombin time Ordered By: Carlos Cavazos on 03-28-2022 PT Coag (Bld) [Time] 24.8 s 11.7-14.9 [facility] Laboratory - CoagulationOrde red By: Carlos Cavazos on 03-23-2022 INR Coag (Bld) [Relative time] 1.7 {INR} [facility] Comment on above: Critical Value > 4.0 Whole blood prothrombin time Ordered By: Carlos Cavazos on 03-23-2022 PT Coag (Bld) [Time] 20.9 s 11.7-14.9 [facility] Laboratory - CoagulationOrde red By: Carlos Cavazos on 03-16-2022 INR Coag (Bld) [Relative time] 1.7 {INR} [facility] Comment on above: Critical Value > 4.0 Whole blood prothrombin time Ordered By: Carlos Cavazos on 03-16-2022 PT Coag (Bld) [Time] 19.9 s 11.7-14.9 [facility] Laboratory - CoagulationOrde red By: Carlos Cavazos on 03-09-2022 INR Coag (Bld) [Relative time] 1.8 {INR} [facility] Comment on above: Critical Value > 4.0 Whole blood prothrombin time Ordered By: Carlos Cavazos on 03-09-2022 PT Coag (Bld) [Time] 21.9 s 11.7-14.9 [facility] Laboratory - CoagulationOrde red By: Carlos Cavazos on 03-06-2022 INR Coag (Bld) [Relative time] 1.7 {INR} [facility] Comment on above: Critical Value > 4.0 Whole blood prothrombin time Ordered By: Carlos Cavazos on 03-06-2022 PT Coag (Bld) [Time] 20.0 s 11.7-14.9 [facility] CBC with Auto Differentialon 03-02-2022 Absolute Baso [...] - 10.7 10*3/uL [facility] Test Performed by [address] [facility] Patient Name: ANDREW SIFUENTES Computed Tomography ACCESSION EXAM DATE/TIME PROCEDURE ORDERING PROVIDER [id number] 03/02/2022 13:[address] Head or Brain w/o [id number] -LANETTE MUNGUIA Contrast CPT code 64668 Reason For Exam (CT Head or Brain [...] tubes (parent active on the left for TRACK VEHICLE REPAIRER shunting and disconnected on the right). 2. No definite evidence of acute infarction (MRI more sensitive), mass lesion, nor hemorrhage. Report Dictated on --- Final --- Dictated: 03/02/2022 1:35 pm Dictating Physician: MD GUTIERREZ WILLIAM Signed Date and Time: 03/02/2022 1:39 pm Signed by: MD GUTIERREZ WILLIAM Transcribed Date and Time: 03/02/2022 1:35 [facility] Anant Gutierrez MD - 03/02/2022 Patient Name: ANDREW SIFUENTES Computed Tomography ACCESSION EXAM DATE/TIME PROCEDURE ORDERING PROVIDER [id number] 03/02/2022 13:[address] Head or Brain w/o [id number] -LANETTE MUNGUIA Contrast CPT code 02462 Reason For Exam (CT Head or Brain [...] tubes (parent active on the left for TRACK VEHICLE REPAIRER shunting and disconnected on the right). 2. No definite evidence of acute infarction (MRI more sensitive), mass lesion, nor hemorrhage. Report Dictated on --- Final --- Dictated: 03/02/2022 1:35 pm Dictating Physician: MD GUTIERREZ WILLIAM Signed Date and Time: 03/02/2022 1:39 pm Signed by: MD GUTIERREZ WILLIAM Transcribed Date and Time: 03/02/2022 1:35 [facility]: Radiology Study observation (narrative) [facility] Work Phone: CT HEAD WO CONTRASTOrdered B y: Anant Gutierrez on 03-02-2022 [facility] CT Head or Brain w/o Contras ton 03-02-2022 CT Head or Brain w/o Contrast [facility]: [id number] Tomography ACCESSION EXAM DATE/TIME PROCEDURE ORDERING PROVIDER [id number] 03/02/2022 13:[address] Head or Brain w/o 194741 -LANETTE MUNGUIA Contrast CPT code 55644 Reason For Exam (CT Head or Brain [...] tubes (parent active on the left for TRACK VEHICLE REPAIRER shunting and disconnected on the right). 2. No definite evidence of acute infarction (MRI more sensitive), mass lesion, nor hemorrhage. Report Dictated on Final Dictated: 03/02/2022 1:35 pm Dictating Physician: MD GUTIERREZ WILLIAM Signed Date and Time: 03/02/2022 1:39 pm Signed by: MD GUTIERREZ WILLIAM Transcribed Date and Time: 03/02/2022 1:35 Normal [facility] Comp Metabolic Panelon 03-02 Calcium [Mass/Vol] 9.1 mg/dL Normal 8.4-10.4 [facility] Comment on above: Performed By: #### H TIERA PT, CMP3 ####[place] [id number] [facility] [place] ALP [Catalytic activity/Vol] 128 U/L High 38-126 [facility] Comment on above: Performed By: #### H TIERA PT, CMP3 ####[place] [address] [address] [place] [facility] [place] ALT [Catalytic activity/Vol] 12 U/L Normal 0-49 [facility] Comment on above: Result Comment: The ALT test is performed by an updated assay method. Please note that the reference intervals have been changed and are now sex specific. Performed By: #### H TIERA PT, CMP3 ####[address], [place] Anion gap [Moles/Vol] 7 mmol/L Normal 3-13 [facility] Comment on above: Performed By: #### H TIERA PT, CMP3 ####[place] [address] [address] [place], [place] AST [Catalytic activity/Vol] 24 U/L Normal 15-46 [facility] Comment on above: Performed By: #### H TIERA PT, CMP3 ####[address], [place] Bilirubin [Mass/Vol] 0.4 mg/dL Normal 0.2-1.3 [facility] Comment on above: Performed By: #### H TIERA PT, CMP3 ####[place] [address] [address] [facility], [place] CO2 [Moles/Vol] 27 mmol/L Normal 22-30 [facility] Comment on above: Performed By: #### H TIERA PT, CMP3 ####[place] [address] [facility] [place] Glucose [Mass/Vol] 109 mg/dL High 70-100 [facility] Comment on above: Performed By: #### H TIERA PT, CMP3 ####[place] [address] [place], [place] Protein [Mass/Vol] 8.1 g/dL Normal 6.3-8.2 [facility] Comment on above: Performed By: #### H CHRISTEL MOTT CMP3 ####[place] [address] [place], [place] Urea nitrogen [Mass/Vol] 22 mg/dL High 7-17 [facility] Comment on above: Performed By: #### H CHRISTEL MOTT CMP3 ####[place] [address] [place], [place] Creatinine [Mass/Vol] 0.63 mg/dL Normal 0.52-1.25 [facility] Comment on above: Performed By: #### H CHRISTEL MOTT CMP3 ####[address] eGFR OTHER > 90.0 Normal >60 [facility] Comment on above: Result Comment: KDIG O [...] Performed By: #### H CHRISTEL MOTT CMP3 ####[place] [address] [place] [address] GFR/1.73 sq M.predicted among blacks MDRD (S/P/Bld) [Vol rate/Area] mL/min/{1.73_m2} Normal >60 [facility] Comment on above: Performed By: #### H EMDF, PT, CMP3 ####[facility] [place] [address] Albumin [Mass/Vol] 4.1 g/dL Normal 3.5-5.0 [facility] Comment on above: Performed By: #### H EMDF, PT, CMP3 ####[facility] [place] [address] Chloride [Moles/Vol] 106 mmol/L Normal 98-107 [facility] Comment on above: Performed By: #### H EMDF, PT, CMP3 ####[facility] [place] [address] Potassium [Moles/Vol] 3.7 mmol/L Normal 3.5-5.1 [facility] Comment on above: Performed By: #### H BIMALF, PT, CMP3 ####[place] [address] [place] [address] Sodium [Moles/Vol] 140 mmol/L Normal 135-145 [facility] Comment on above: Performed By: #### H BIMALF, PT, CMP3 ####[place] [address] [place] [address] Comprehensive Metabolic Pane kiel 03-02-2022 Albumin [Mass/Vol] 4.1 g/dL 3.5 - 5.0 g/dL [facility]P (Bld) [Catalytic activity/Vol] 128 U/L High 38 - 126 U/L [facility] ALT [Catalytic activity/Vol] 12 U/L 0 - 49 U/L [facility] Comment on above: The ALT test [...] P INF mL/min [facility] EGFR IF NonAfrican Ukrainian mL/min 60 - PINF mL/min [facility] Comment [...] - 17 mg/dL [facility] Test Performed by [facility], [address] [place] [id number] [facility] ED Provider Noteon 2 ED Provider Note [facility] EMERGENCY DEPT EMERGENCY DEPARTMENT ENCOUNTER Pt Name: Andrew Sifuentes Birthdate 1950 Date of evaluation: 03/02/2022 Provider: Lanette Munguia DO CHIEF COMPLAINT Chief Complaint Patient presents with Fall Patient had unwitnessed fall at [facility] landed on butt. Is on thinners, denies LOC, denies head injury has no complaints at this time HISTORY OF PRESENT ILLNESS (Location/Symptom, Timing/Onset, Context/Setting, Quality, Duration, Modifying Factors, Severity) Note limiting factors. I wore a N-95 mask for the entirety of this encounter. Andrew Sifuentes is a 71 y.o. male medical history of hydrocephalus status post TRACK VEHICLE REPAIRER shunt, history of DVT on Coumadin who presents to the emergency department from [facility] for evaluation following mechanical fall. Patient rolled [...] Hemorrhoids Hydrocephalus, adult (HCC) Kidney stone Neuropathy TRACK VEHICLE REPAIRER (ventriculoperitoneal) shunt status SURGICAL HISTORY Past Surgical [...] CONTRAST R (more content not included)... Normal [facility] Hemogram w/ Autodiffon 03-02 Abs Baso Cnt 0.2 10*3/uL Normal 0.0-0.2 [facility] Comment on above: Performed By: #### H TIERA PT, CMP3 ####[address] Abs Neutrophile Cnt 10.7 10*3/uL High 1.8-7.0 [facility] Comment on above: Performed By: #### H TIERA PT, CMP3 ####[address] Basophils/100 WBC (Bld) 1.1 % Normal 0.0-2.0 [facility] Comment on above: Performed By: #### H TIERA PT, CMP3 ####[address] Eosinophils (Bld) [#/Vol] 0.1 10*3/uL Normal 0.0-0.5 [facility] Comment on above: Performed By: #### H TIERA PT, CMP3 ####[facility] [employer] [address] Eosinophils/100 WBC (Bld) 0.5 % Low 1.0-6.0 [facility] Comment on above: Performed By: #### H TIERA PT, CMP3 ####[facility] [employer] [address] Granulocytes/100 WBC (Bld) 73.9 % Normal 40.0-80.0 [facility] Comment on above: Performed By: #### H EMDHedyi PT, CMP3 ####[facility] [employer] [address] Lymphocytes (Bld) [#/Vol] 3.0 10*3/uL Normal 1.0-4.3 [facility] Comment on above: Performed By: #### H TIERA PT, CMP3 ####[place] [address] [place], [place] Lymphocytes/100 WBC (Bld) 20.6 % Normal 20.0-40.0 [facility] Comment on above: Performed By: #### H TIERA PT, CMP3 ####[place] [address] [place], [place] Monocytes (Bld) [#/Vol] 0.6 10*3/uL Normal 0.0-0.8 [facility] Comment on above: Performed By: #### H EMDF PT, CMP3 ####[address] Monocytes/100 WBC (Bld) 3.9 % Normal 2.0-10.0 [facility] Comment on above: Performed By: #### H TIERA PT, CMP3 ####[place] [address] [place], [place] Platelet mean volume (Bld) [Entitic vol] 8.5 fL Normal 7.4-12.4 [facility] Comment on above: Result Comment: MPV is a calculated measurement using platelet volume ratio. Performed By: #### H TIERA PT, CMP3 ####[place] [address] [place], [place] Platelets (Bld) [#/Vol] 411 10*3/uL Normal 140-440 [facility] Comment on above: Performed By: #### H TIERA PT, CMP3 ####[place] [address] [place], [place] Erythrocyte distribution width (RBC) [Ratio] 17.0 % High 11.5-14.5 [facility] Comment on above: Performed By: #### H EMDHeydi PT, CMP3 ####[address] Hematocrit (Bld) [Volume fraction] 37.4 % Low 40.0-52.0 [facility] Comment on above: Performed By: #### H EMDF PT, CMP3 ####[address] Hemoglobin (Bld) [Mass/Vol] 12.1 g/dL Low 13.0-18.0 [facility] Comment on above: Performed By: #### H EMDF, PT, CMP3 ####[place] [address] [place], [place] MCH (RBC) [Entitic mass] 26.2 pg Normal 26.0-34.0 [facility] Comment on above: Performed By: #### H EMDF, PT, CMP3 ####[address] MCHC 32.3 % Normal 32.0-36.0 [facility] Comment on above: Performed By: #### H EMDF, PT, CMP3 ####[address] MCV (RBC) [Entitic vol] 81.1 fL Normal 80.0-98.0 [facility] Comment on above: Performed By: #### H EMDF, PT, CMP3 ####[address] RBC (Bld) [#/Vol] 4.61 10*6/uL Normal 4.40-5.90 [facility] Comment on above: Performed By: #### H EMDF, PT, CMP3 ####[address] WBC (Bld) [#/Vol] 14.5 10*3/uL High 3.6-10.7 [facility] Comment on above: Performed By: #### H EMDF, PT, CMP3 ####[address] Prothrombin Timeon 2 INR 1.9 High 0.9-1.1 [facility] Comment on above: Result Comment: Harry mmended [...] Performed By: #### H EMDF, PT, CMP3 ####[facility] [place] [address] PT Coag (PPP) [Time] 18.9 s High 9.0-12.0 [facility] Comment on above: Result Comment: . Performed By: #### H EMDF, PT, CMP3 ####[place] [address] [place] [address] Protime-INRon 03-02-2022 INR Coag (Bld) [Relative time] 1.9 {INR} High [facility] Comment on above: Recommended Anticoag ulant [...] Interpretation and review of laboratory results Abnormal [facility] PT Coag (PPP) [Time] 18.9 s High 9.0 - 12.0 s [facility] Comment on above: . Test Performed by [facility] [place] [address] [facility] Laboratory - CoagulationOrde red By: Carlos Cavazos on 02-20-2022 INR Coag (Bld) [Relative time] 2.6 {INR} [facility] Comment on above: Critical Value > 4.0 Whole blood prothrombin time Ordered By: Carlos Cavazos on 02-20-2022 PT Coag (Bld) [Time] 30.1 s 11.7-14.9 [facility] - CoagulationOrde red By: Carlos Cavazos on 02-13-2022 INR Coag (Bld) [Relative time] 2.3 {INR} [facility] Comment on above: Critical Value > 4.0 Whole blood prothrombin time Ordered By: Carlos Cavazos on 02-13-2022 PT Coag (Bld) [Time] 26.7 s 11.7-14.9 [facility] Laboratory - CoagulationOrde red By: Carlos Cavazos on 02-06-2022 INR Coag (Bld) [Relative time] 2.3 {INR} [facility] Comment on above: Critical Value > 4.0 Whole blood prothrombin time Ordered By: Carlos Cavazos on 02-06-2022 PT Coag (Bld) [Time] 26.6 s 11.7-14.9 [facility] - Coagulationon 0 01-30-2022 INR Coag (Bld) [Relative time] 1.7 {INR} [facility] Work Phone: Comment on above: Critical Value > 4.0 Whole blood prothrombin time on 01-30-2022 PT Coag (Bld) [Time] 20.1 s 11.7-14.9 [facility] Work Phone: Laboratory - Coagulationon 0 01-26-2022 INR Coag (Bld) [Relative time] 1.8 {INR} [facility] Work Phone: Comment on above: Critical Value > 4.0 Whole blood prothrombin time on 01-26-2022 PT Coag (Bld) [Time] 21.8 s 11.7-14.9 [facility] Work Phone: Laboratory - Coagulationon 0 01-19-2022 INR Coag (Bld) [Relative time] 2.2 {INR} [facility] Work Phone: Comment on above: Critical Value > 4.0 Whole blood prothrombin time on 01-19-2022 PT Coag (Bld) [Time] 25.7 s 11.7-14.9 [facility] Work Phone: INR in Blood by Coagulation assayon 01-10-2022 INR Coag (Bld) [Relative time] 1.8 {INR} [facility] Work Phone: Laboratory - Coagulationon 0 01-10-2022 PT Coag (PPP) [Time] 20.9 s 11.7-14.9 [facility] Work Phone: Basophil percentageon 2021 Chloride [Moles/Vol] 107 mmol/L 98-107 [facility] Work Phone: Glucose [Mass/Vol] 82 mg/dL 74-106 [facility] Work Phone: Potassium [Moles/Vol] 3.4 mmol/L 3.5-5.1 [facility] Work Phone: Sodium [Moles/Vol] 143 mmol/L 136-145 [facility] Work Phone: WBC (Bld) [#/Vol] 10.4 10*3/uL 4.4-11.0 [place] Work Phone: Blood erythrocytes count (nu mber/volume)on 01-05-2022 RBC (Bld) [#/Vol] 4.27 10*6/uL 4.6-6.2 [place] Work Phone: Blood hemoglobin measurement (mass/volume)on 01-05-2022 Hemoglobin (Bld) [Mass/Vol] 11.2 g/dL 13.0-16.5 [facility] Work Phone: Blood platelet mean volumeon 01-05-2022 Platelet mean volume (Bld) [Entitic vol] 10.3 fL 6.2-12.0 [facility] Work Phone: Determination of erythrocyte mean corpuscular volume (MCV)on 01-05-2022 MCV (RBC) [Entitic vol] 84.8 fL 80-94 [facility] Work Phone: Hematocrit Auto (Bld) [Volum e fraction]on 01-05-2022 Hematocrit (Bld) [Volume fraction] 36.2 % 40-54 [facility] Work Phone: Laboratory - Chemistry and C hemistry - challengeon 01-05-2022 CO2 [Moles/Vol] 28.0 mmol/L 21.0-32.0 [facility] Work Phone: Urea nitrogen/Creatinine [Mass ratio] 20.0 mg/mg 10-20 [facility] Work Phone: Laboratory - Hematology and Cell countson 01-05-2022 Erythrocyte distribution width (RBC) [Entitic vol] 51.8 fL 35.1-43.9 [facility] Work Phone: Erythrocyte distribution width (RBC) [Ratio] 16.8 % 11.6-14.6 [facility] Work Phone: MCH (RBC) [Entitic mass] 26.2 pg 27.0-32.0 [facility] Work Phone: MCHC Auto (RBC) [Mass/Vol]on 01-05-2022 MCHC (RBC) [Mass/Vol] 30.9 g/dL 32-36 [facility] Work Phone: No Panel Informationon 01-05 Estimated GFR (MDRD) Amer 133 mL/min >60 [facility] Work Phone: Comment on above: GFR Calc Estimated GFR (MDRD) Non-Af Amer 110 mL/min >60 [facility] Work Phone: Comment on above: Non- GFR Calc Platelets bldon 01-05-2022 Platelets (Bld) [#/Vol] 373 10*3/uL 150-450 [facility] Work Phone: Serum or plasma calcium oral urement (mass/volume)on 01-05-2022 Calcium [Mass/Vol] 8.8 mg/dL 8.5-10.1 [facility] Work Phone: Serum or plasma creatinine m easurement (mass/volume)on 01-05-2022 Creatinine [Mass/Vol] 0.75 mg/dL 0.70-1.30 [facility] Work Phone: Comment on above: The validity of the calculated GFR & GFRAA in patients over 70 years has not been determined. Clinical correlation is essential. Serum or plasma urea nitroge n measurement (mass/volume)on 01-05-2022 Urea nitrogen [Mass/Vol] 15 mg/dL 7-18 [facility] Work Phone: Thin prep Papanicolaou smear with manual screeningon 01-05-2022 Thin prep Papanicolaou smear with manual screening 8 5-15 [facility] Work Phone: Laboratory - Coagulationon 0 12-30-2021 INR Coag (Bld) [Relative time] 2.0 {INR} [facility] Work Phone: Comment on above: Critical Value > 4.0 Whole blood prothrombin time on 12-30-2021 PT Coag (Bld) [Time] 23.7 s 11.7-14.9 [facility] Work Phone: Basophil percentageon 2021 Chloride [Moles/Vol] 106 mmol/L 98-107 [facility] Work Phone: Glucose [Mass/Vol] 91 mg/dL 74-106 [facility] Work Phone: Potassium [Moles/Vol] 3.4 mmol/L 3.5-5.1 [facility] Work Phone: Sodium [Moles/Vol] 141 mmol/L 136-145 [facility] Work Phone: WBC (Bld) [#/Vol] 10.2 10*3/uL 4.4-11.0 [place] Work Phone: Blood erythrocytes count (nu mber/volume)on 12-28-2021 RBC (Bld) [#/Vol] 4.22 10*6/uL 4.6-6.2 [place] Work Phone: Blood hemoglobin measurement (mass/volume)on 12-28-2021 Hemoglobin (Bld) [Mass/Vol] 11.2 g/dL 13.0-16.5 [facility] Work Phone: Blood platelet mean volumeon 12-28-2021 Platelet mean volume (Bld) [Entitic vol] 10.1 fL 6.2-12.0 [facility] Work Phone: Determination of erythrocyte mean corpuscular volume (MCV)on 12-28-2021 MCV (RBC) [Entitic vol] 82.7 fL 80-94 [facility] Work Phone: Hematocrit Auto (Bld) [Volum e fraction]on 12-28-2021 Hematocrit (Bld) [Volume fraction] 34.9 % 40-54 [facility] Work Phone: Laboratory - Chemistry and C hemistry - challengeon 12-28-2021 CO2 [Moles/Vol] 30.0 mmol/L 21.0-32.0 [facility] Work Phone: Urea nitrogen/Creatinine [Mass ratio] 33.7 mg/mg 10-20 [facility] Work Phone: Laboratory - Hematology and Cell countson 12-28-2021 Erythrocyte distribution width (RBC) [Entitic vol] 49.1 fL 35.1-43.9 [facility] Work Phone: Erythrocyte distribution width (RBC) [Ratio] 16.5 % 11.6-14.6 [facility] Work Phone: MCH (RBC) [Entitic mass] 26.5 pg 27.0-32.0 [facility] Work Phone: MCHC Auto (RBC) [Mass/Vol]on 12-28-2021 MCHC (RBC) [Mass/Vol] 32.1 g/dL 32-36 [facility] Work Phone: No Panel Informationon 12-28 Estimated GFR (MDRD) Amer 174 mL/min >60 [facility] Work Phone: Comment on above: GFR Calc Estimated GFR (MDRD) Non-Af Amer 143 mL/min >60 [facility] Work Phone: Comment on above: Non- GFR Calc Platelets bldon 12-28-2021 Platelets (Bld) [#/Vol] 339 10*3/uL 150-450 [facility] Work Phone: Serum or plasma calcium oral urement (mass/volume)on 12-28-2021 Calcium [Mass/Vol] 8.6 mg/dL 8.5-10.1 [facility] Work Phone: Serum or plasma creatinine m easurement (mass/volume)on 12-28-2021 Creatinine [Mass/Vol] 0.59 mg/dL 0.70-1.30 [facility] Work Phone: Comment on above: The validity of the calculated GFR & GFRAA in patients over 70 years has not been determined. Clinical correlation is essential. Serum or plasma urea nitroge n measurement (mass/volume)on 12-28-2021 Urea nitrogen [Mass/Vol] 20 mg/dL 7-18 [facility] Work Phone: Thin prep Papanicolaou smear with manual screeningon 12-28-2021 Thin prep Papanicolaou smear with manual screening 5 5-15 [facility] Work Phone: CULTURE BLOODon 12-27-2021 Microscopic examination of blood, culture CULTURE BLOOD --> Status: F No growth at 5 days. Normal [facility] [employer] Comment on above: Performed By: #### C /BLD #### [employer] [address] [place] [address] Laboratory - Coagulationon 0 12-26-2021 INR Coag (Bld) [Relative time] 1.7 {INR} [facility] Work Phone: Comment on above: Critical Value > 4.0 Whole blood prothrombin time on 12-26-2021 PT Coag (Bld) [Time] 20.8 s 11.7-14.9 [facility] Work Phone: Basic Metabolic Panelon 12-05 Calcium [Mass/Vol] 8.8 mg/dL Normal 8.4-10.4 [facility] Comment on above: Performed By: #### C RP2, ESR, HEMDF, BMP3 ####[employer] [place] [address] Anion gap [Moles/Vol] 6 mmol/L Normal 3-13 [facility] Comment on above: Performed By: #### C RP2, ESR, HEMDF, BMP3 ####[facility] [employer] [id number] [place], [place] CO2 [Moles/Vol] 27 mmol/L Normal 22-30 [facility] Comment on above: Performed By: #### C RP2, ESR, HEMDF, BMP3 ####[facility] [employer] [id number] [place], [place] Glucose [Mass/Vol] 100 mg/dL Normal 70-100 [facility] Comment on above: Performed By: #### C RP2, ESR, HEMDF, BMP3 ####[facility] [employer] [address] [place], [place] Urea nitrogen [Mass/Vol] 18 mg/dL High 7-17 [facility] Comment on above: Performed By: #### C RP2, ESR, HEMDF, BMP3 ####[facility] [employer] [address] [place], [place] Creatinine [Mass/Vol] 0.73 mg/dL Normal 0.52-1.25 [facility] Comment on above: Performed By: #### C RP2, ESR, HEMDF, BMP3 ####[facility] [employer] [id number] [place], [place] eGFR OTHER > 90.0 Normal >60 [facility] Comment on above: Result Comment: KDIG O [...] By: #### C RP2, ESR, HEMDF, BMP3 ####[address] [place] [address] GFR/1.73 sq M.predicted among blacks MDRD (S/P/Bld) [Vol rate/Area] mL/min/{1.73_m2} Normal >60 [facility] Comment on above: Performed By: #### C RP2, ESR, HEMDF, BMP3 ####[address] [place] [address] Potassium [Moles/Vol] 3.7 mmol/L Normal 3.5-5.1 [facility] Comment on above: Performed By: #### C RP2, ESR, HEMDF, BMP3 ####[address] [place] [address] Chloride [Moles/Vol] 106 mmol/L Normal 98-107 [facility] Comment on above: Performed By: #### C RP2, ESR, HEMDF, BMP3 ####[address] [place] [address] Sodium [Moles/Vol] 139 mmol/L Normal 135-145 [facility] Comment on above: Performed By: #### C RP2, ESR, HEMDF, BMP3 ####[address] [place] [address] Anion gap [Moles/Vol] 6 mmol/L 3 - 13 mmol/L [facility] Calcium [Mass/Vol] 8.8 mg/dL 8.4 - 10. 4 mg/dL [facility] Chloride [Moles/Vol] 106 mmol/L 98 - 10 7 mmol/L [facility] CO2 [Moles/Vol] 27 mmol/L 22 - 30 mmol/L [facility] Creatinine [Mass/Vol] 0.73 mg/dL 0.52 - 1.25 mg/dL [facility] eGFR mL/min 60 - P INF mL/min [facility] EGFR IF NonAfrican Ukrainian mL/min 60 - PINF mL/min [facility] Comment on above: KDIGO guidelines pro [...] 2021 Basophil percentage 25-50 SEEN /hpf 0-5 [facility] Work Phone: Chloride [Moles/Vol] 106 mmol/L 98-107 [facility] Work Phone: Glucose [Mass/Vol] 93 mg/dL 74-106 [facility] Work Phone: Potassium [Moles/Vol] 3.5 mmol/L 3.5-5.1 [facility] Work Phone: Sodium [Moles/Vol] 140 mmol/L 136-145 [facility] Work Phone: WBC (Bld) [#/Vol] 9.6 10*3/uL 4.4-11.0 [facility] Work Phone: Bilirubin Test strip Ql (U)o n 12-22-2021 Bilirubin Ql (U) Negative Negative [facility] Work Phone: Blood erythrocytes count (nu mber/volume)on 12-22-2021 RBC (Bld) [#/Vol] 4.34 10*6/uL 4.6-6.2 [place] Work Phone: Blood hemoglobin measurement (mass/volume)on 12-22-2021 Hemoglobin (Bld) [Mass/Vol] 11.5 g/dL 13.0-16.5 [facility] Work Phone: Blood platelet mean volumeon 12-22-2021 Platelet mean volume (Bld) [Entitic vol] 10.8 fL 6.2-12.0 [facility] Work Phone: C-Reactive Proteinon 022 CRP [Mass/Vol] 27.2 mg/L High 0.0-9.9 [facility] Comment on above: Result Comment: . Performed By: #### C RP2, ESR, HEMDF, BMP3 ####[employer] [id number] [place] [address] CRP [Mass/Vol] 27.2 mg/L High 0 - 9.9 mg/L [facility] Comment on above: . CBC with [...] 11.0 g/dL Low 13 - 18 g/dL [facility] Interpretation and review of laboratory results [...] - 10.7 10*3/uL [facility] Test Performed [address] COVID-19, Flu A/B, and RSV C [facility] 12-22-2021 Influenza A by PCR Not detected [facility] A Influenza B by PCR Not detected [facility] A RSV PCR Not Detected. Expected Result: Not Detected _ Method: Real-time, RT-PCR This assay was developed by [employer] and distributed under an Emergency Use Authorization (EUA) granted by the FDA for the qualitative detection of nucleic acids from SARS-CoV-2, Influenza A, Influenza B, and Respiratory Syncytial Virus. Provider and patient fact sheets can be found at https://www.fda.gov/media /127745/download and https://www.fda.gov/media /115039/download. [facility] SARS-CoV-2 (COVID-19) RNA MEGAN+probe Ql (Unsp spec) Not detected [facility] Test Performed by [address] [facility] CR Foot Complete 3+ Views Le fton 12-22-2021 CR Foot Complete 3+ Views Left [facility]: [id number] Radiology ACCESSION EXAM DATE/TIME PROCEDURE ORDERING PROVIDER [id number] 12/22/2021 00:09 EDT CR Foot Complete 3+ SANDY HIDALGO, JOAN Views Left CPT code 69091 Reason For Exam (CR Foot Complete 3+ [...] Transcribed Date and Time: 12/22/2021 0:21 Normal [facility] Calcium oxalate crystals det ection in urine sediment by light microscopyon 12-22-2021 Calcium oxalate crystals LM Ql (Urine sed) 1+ /hpf [facility] Work Phone: Determination of erythrocyte mean corpuscular volume (MCV)on 12-22-2021 MCV (RBC) [Entitic vol] 84.3 fL 80-94 [facility] Work Phone: ED Provider Noteon 2 [...] 79.4 kg (175 lb), SpO2 96 %. [id number] in no acute distress. 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 Tenderness: (more content not included)... Normal [facility] Hematocrit Auto (Bld) [Volum e fraction]on 12-22-2021 Hematocrit (Bld) [Volume fraction] 36.6 % 40-54 [facility] Work Phone: Hemogram w/ Autodiffon 12-22 Abs Baso Cnt 0.1 10*3/uL Normal 0.0-0.2 [facility] Comment on above: Performed By: #### C RP2, ESR, HEMDF, BMP3 ####[facility] [employer] [address] [address] Abs Neutrophile Cnt 5.9 10*3/uL Normal 1.8-7.0 [facility] Comment on above: Performed By: #### C RP2, ESR, HEMDF, BMP3 ####[facility] [employer] [address] [address] Basophils/100 WBC (Bld) 0.7 % Normal 0.0-2.0 [facility] Comment on above: Performed By: #### C RP2, ESR, HEMDF, BMP3 ####[facility] [employer] [address] [place] [address] Eosinophils (Bld) [#/Vol] 0.2 10*3/uL Normal 0.0-0.5 [facility] Comment on above: Performed By: #### C RP2, ESR, HEMDF, BMP3 ####[facility] [employer] [address] [place] [address] Eosinophils/100 WBC (Bld) 2.3 % Normal 1.0-6.0 [facility] Comment on above: Performed By: #### C RP2, ESR, HEMDF, BMP3 ####[address] Erythrocyte distribution width (RBC) [Ratio] 17.5 % High 11.5-14.5 [facility] Comment on above: Performed By: #### C RP2, ESR, HEMDF, BMP3 ####[address] Granulocytes/100 WBC (Bld) 57.8 % Normal 40.0-80.0 [facility] Comment on above: Performed By: #### C RP2, ESR, HEMDF, BMP3 ####[address] Hematocrit (Bld) [Volume fraction] 33.3 % Low 40.0-52.0 [facility] Comment on above: Performed By: #### C RP2, ESR, HEMDF, BMP3 ####[address] Hemoglobin (Bld) [Mass/Vol] 11.0 g/dL Low 13.0-18.0 [facility] Comment on above: Performed By: #### C RP2, ESR, HEMDF, BMP3 ####[address] Lymphocytes (Bld) [#/Vol] 3.3 10*3/uL Normal 1.0-4.3 [facility] Comment on above: Performed By: #### C RP2, ESR, HEMDF, BMP3 ####[address] Lymphocytes/100 WBC (Bld) 33.0 % Normal 20.0-40.0 [facility] Comment on above: Performed By: #### C RP2, ESR, HEMDF, BMP3 ####[address] MCH (RBC) [Entitic mass] 26.5 pg Normal 26.0-34.0 [facility] Comment on above: Performed By: #### C RP2, ESR, HEMDF, BMP3 ####[address] [place], [place] MCHC 33.1 % Normal 32.0-36.0 [facility] Comment on above: Performed By: #### C RP2, ESR, HEMDF, BMP3 ####[address] MCV (RBC) [Entitic vol] 80.2 fL Normal 80.0-98.0 [facility] Comment on above: Performed By: #### C RP2, ESR, HEMDF, BMP3 ####[address] Monocytes (Bld) [#/Vol] 0.6 10*3/uL Normal 0.0-0.8 [facility] Comment on above: Performed By: #### C RP2, ESR, HEMDF, BMP3 ####[address] Monocytes/100 WBC (Bld) 6.2 % Normal 2.0-10.0 [facility] Comment on above: Performed By: #### C RP2, ESR, HEMDF, BMP3 ####[address] Platelet mean volume (Bld) [Entitic vol] 8.0 fL Normal 7.4-12.4 [facility] Comment on above: Result Comment: MPV is a calculated measurement using platelet volume ratio. Performed By: #### C RP2, ESR, HEMDF, BMP3 ####[address] Platelets (Bld) [#/Vol] 368 10*3/uL Normal 140-440 [facility] Comment on above: Performed By: #### C RP2, ESR, HEMDF, BMP3 ####[address] RBC (Bld) [#/Vol] 4.15 10*6/uL Low 4.40-5.90 [facility] Comment on above: Performed By: #### C RP2, ESR, HEMDF, BMP3 ####[facility] [address] [place] [address] WBC (Bld) [#/Vol] 10.1 10*3/uL Normal 3.6-10.7 [facility] Comment on above: Performed By: #### C RP2, ESR, HEMDF, BMP3 ####[facility] [place] [address] Ketones Test strip Ql (U)on 12-22-2021 Ketones Ql (U) Negative Negative [facility] Work Phone: Laboratory - Chemistry and C hemistry - challengeon 12-22-2021 CO2 [Moles/Vol] 27.0 mmol/L 21.0-32.0 [facility] Work Phone: Urea nitrogen/Creatinine [Mass ratio] 22.5 mg/mg 10-20 [facility] Work Phone: Laboratory - Hematology and Cell countson 12-22-2021 Erythrocyte distribution width (RBC) [Entitic vol] 49.1 fL 35.1-43.9 [facility] Work Phone: Erythrocyte distribution width (RBC) [Ratio] 16.1 % 11.6-14.6 [facility] Work Phone: MCH (RBC) [Entitic mass] 26.5 pg 27.0-32.0 [facility] Work Phone: MCHC Auto (RBC) [Mass/Vol]on 12-22-2021 MCHC (RBC) [Mass/Vol] 31.4 g/dL 32-36 [facility] Work Phone: Mucus LM Ql (Urine sed)on Mucus Ql (Urine sed) 0 SEEN /hpf [facility] Work Phone: Nitrite Test strip Ql (U)on 12-22-2021 Nitrite Ql (U) Positive Negative [facility] Work Phone: No Panel Informationon 12-22 Estimated GFR (MDRD) Amer 152 mL/min >60 [facility] Work Phone: Comment on above: GFR Calc Estimated GFR (MDRD) Non-Af Amer 125 mL/min >60 [facility] Work Phone: Comment on above: Non- GFR Calc Interpretation and review of laboratory results Abnormal [facility] Test Performed by [facility], [address] [place] [id number] [place] [address] LAB [facility] Platelets bldon 12-22-2021 Platelets (Bld) [#/Vol] 317 10*3/uL 150-450 [facility] Work Phone: Protein Test strip Ql (U)on 12-22-2021 Protein Ql (U) 30 mg/dl Negative [facility] Work Phone: SARS-CoV-2, Flu A/B and RSVo n 12-22-2021 SARS-CoV-2 (COVID-19) RNA MEGAN+probe Ql (Unsp spec) SARS-CoV-2 --> Status: F Not Detected. Flu A PCR --> Status: F Not Detected. Flu B PCR --> Status: F Not Detected. RSV PCR --> Status: F Not Detected. Expected Result: Not Detected _ Method: Real-time, RT-PCR This assay was developed by [employer] and distributed under an Emergency Use Authorization (EUA) granted by the FDA for the qualitative detection of nucleic acids from SARS-CoV-2, Influenza A, Influenza B, and Respiratory Syncytial Virus. Provider and patient fact sheets can be found at https://www.fda.gov/media /896241/download and https://www.fda.gov/media /710508/download. Expected Result: Not Detected _ Method: Real-time, RT-PCR This assay was developed by [employer] and distributed under an Emergency Use Authorization (EUA) granted by the FDA for the qualitative detection of nucleic acids from SARS-CoV-2, Influenza A, Influenza B, and Respiratory Syncytial Virus. Provider and patient fact sheets can be found at https://www.fda.gov/media /450453/download and https://www.fda.gov/media /002761/download. Normal [facility] Comment on above: Performed By: #### C VFLR ####[facility] [place] [address], [address] Sed Rateon 12-22-2021 Sed Rate 48 mm/h High 0-10 [facility] Comment on above: Performed By: #### C RP2, ESR, HEMDF, BMP3 ####[facility] [place] [address] Sedimentation Rateon 022 Interpretation and review of laboratory results Abnormal [facility] Sed Rate 48 mm/h High 0 - 10 mm/h [facility] Test Performed by [facility], [place] [address] [facility] Serum or plasma calcium oral urement (mass/volume)on 12-22-2021 Calcium [Mass/Vol] 8.6 mg/dL 8.5-10.1 [facility] Work Phone: Serum or plasma creatinine m easurement (mass/volume)on 12-22-2021 Creatinine [Mass/Vol] 0.67 mg/dL 0.70-1.30 [facility] Work Phone: Comment on above: The validity of the calculated GFR & GFRAA in patients over 70 years has not been determined. Clinical correlation is essential. Serum or plasma urea nitroge n measurement (mass/volume)on 12-22-2021 Urea nitrogen [Mass/Vol] 15 mg/dL 11-21 [facility] Work Phone: Squamous epithelial cells de tection in urine sediment by light microscopyon 12-22-2021 Epithelial cells.squamous LM Ql (Urine sed) 0-5 SEEN /hpf 0-5 [facility] Work Phone: Thin prep Papanicolaou smear with manual screeningon 12-22-2021 Thin prep Papanicolaou smear with manual screening 7 5-15 [facility] Work Phone: Urine blood detectionon 12-05 RBC Ql (U) 150 /ul Negative [facility] Work Phone: RBC Ql (U) 10-25 SEEN /hpf 0-5 [facility] Work Phone: Urine clarityon 12-22-2021 Clarity (U) Sl. Cloudy Clear [facility] Work Phone: Urine color determinationon 12-22-2021 Color (U) Yellow Yellow [facility] Work Phone: Urine glucose detectionon Glucose Ql (U) Normal mg/dl Normal [facility] Work Phone: Urine leukocyte esterase det ection by dipstickon 12-22-2021 Leukocyte esterase Test strip Ql (U) 500 /ul Negative [facility] Work Phone: Urine pHon 12-22-2021 pH (U) 6.0 [pH] 5.0 - 8.0 [facility] Work Phone: Urine sediment bacteria coun t by microscopy (number/high power field)on 12-22-2021 Bacteria LM.HPF (Urine sed) [#/Area] 2 /[HPF] None Seen [facility] Work Phone: Urine specific gravity measu rementon 12-22-2021 Specific gravity (U) [Rel density] 1.020 1.002-1.030 [facility] Work Phone: Urobilinogen Auto test strip Ql (U)on 12-22-2021 Urobilinogen Ql (U) Normal mg/dl Normal [facility] Work Phone: XR FOOT LEFT (MIN 3 VIEWS)on 12-22-2021 Patient Name: ANDREW SIFUENTES Diagnostic Radiology ACCESSION EXAM DATE/TIME PROCEDURE ORDERING PROVIDER [id number] 12/22/2021 00:09 EDT CR Foot Complete 3+ SANDY HIDALGO, HENRY Godoy Views Left CPT code 28208 Reason For Exam (CR Foot Complete 3+ [...] JEFFREY Transcribed Date and Time: 12/22/2021 0:21 [facility] Albert Solano MD - 12/22/2021 [id number]iology ACCESSION EXAM DATE/TIME PROCEDURE ORDERING PROVIDER [id number] 12/22/2021 00:09 EDT CR Foot Complete 3+ SANDY HIDALGO, JOAN Views Left CPT code 75457 Reason For Exam (CR Foot Complete 3+ [...] Time: 12/22/2021 0:22 am Signed by: MD XIOMARA, ALBERT Transcribed Date and Time: 12/22/2021 0:21 [facility] Work Phone: Radiology Study observation (narrative) [facility] Work Phone: XR FOOT LEFT (MIN 3 VIEWS)Or dered By: Albert Solano on 12-22-2021 [facility] Work Phone: Basophil percentageon 2021 Chloride [Moles/Vol] 103 mmol/L 98-107 [facility] Work Phone: Glucose [Mass/Vol] 92 mg/dL 74-106 [facility] Work Phone: Potassium [Moles/Vol] 3.5 mmol/L 3.5-5.1 [facility] Work Phone: Sodium [Moles/Vol] 138 mmol/L 136-145 [facility] Work Phone: WBC (Bld) [#/Vol] 11.2 10*3/uL 4.4-11.0 [place] Work Phone: Blood erythrocytes count (nu mber/volume)on 12-19-2021 RBC (Bld) [#/Vol] 4.50 10*6/uL 4.6-6.2 [place] Work Phone: Blood hemoglobin measurement (mass/volume)on 12-19-2021 Hemoglobin (Bld) [Mass/Vol] 12.2 g/dL 13.0-16.5 [facility] Work Phone: Blood platelet mean volumeon 12-19-2021 Platelet mean volume (Bld) [Entitic vol] 11.3 fL 6.2-12.0 [facility] Work Phone: Determination of erythrocyte mean corpuscular volume (MCV)on 12-19-2021 MCV (RBC) [Entitic vol] 85.6 fL 80-94 [facility] Work Phone: Hematocrit Auto (Bld) [Volum e fraction]on 12-19-2021 Hematocrit (Bld) [Volume fraction] 38.5 % 40-54 [facility] Work Phone: Laboratory - Chemistry and C hemistry - challengeon 12-19-2021 CO2 [Moles/Vol] 30.0 mmol/L 21.0-32.0 [facility] Work Phone: Urea nitrogen/Creatinine [Mass ratio] 27.1 mg/mg 10-20 [facility] Work Phone: Laboratory - Hematology and Cell countson 12-19-2021 Erythrocyte distribution width (RBC) [Entitic vol] 50.5 fL 35.1-43.9 [facility] Work Phone: Erythrocyte distribution width (RBC) [Ratio] 16.0 % 11.6-14.6 [facility] Work Phone: MCH (RBC) [Entitic mass] 27.1 pg 27.0-32.0 [facility] Work Phone: MCHC Auto (RBC) [Mass/Vol]on 12-19-2021 MCHC (RBC) [Mass/Vol] 31.7 g/dL 32-36 [facility] Work Phone: No Panel Informationon 12-19 Estimated GFR (MDRD) Amer 153 mL/min >60 [facility] Work Phone: Comment on above: GFR Calc Estimated GFR (MDRD) Non-Af Amer 126 mL/min >60 [facility] Work Phone: Comment on above: Non- GFR Calc Platelets bldon 12-19-2021 Platelets (Bld) [#/Vol] 363 10*3/uL 150-450 [facility] Work Phone: Serum or plasma calcium oral urement (mass/volume)on 12-19-2021 Calcium [Mass/Vol] 9.5 mg/dL 8.5-10.1 [facility] Work Phone: Serum or plasma creatinine m easurement (mass/volume)on 12-19-2021 Creatinine [Mass/Vol] 0.66 mg/dL 0.70-1.30 [facility] Work Phone: Comment on above: The validity of the calculated GFR & GFRAA in patients over 70 years has not been determined. Clinical correlation is essential. Serum or plasma urea nitroge n measurement (mass/volume)on 12-19-2021 Urea nitrogen [Mass/Vol] 18 mg/dL 7-18 [facility] Work Phone: Thin prep Papanicolaou smear with manual screeningon 12-19-2021 Thin prep Papanicolaou smear with manual screening 5 5-15 [facility] Work Phone: Laboratory - Coagulationon 0 12-12-2021 INR Coag (Bld) [Relative time] 2.0 {INR} [facility] Work Phone: Comment on above: Critical Value > 4.0 Whole blood prothrombin time on 12-12-2021 PT Coag (Bld) [Time] 23.9 s 11.7-14.9 [facility] Work Phone: ANES POSTPROC EVALon 022 ANES POSTPROC EVAL Normal [facility] Laboratory - Coagulationon 0 12-08-2021 INR Coag (Bld) [Relative time] 1.8 {INR} [facility] Work Phone: Comment on above: Critical Value > 4.0 Whole blood prothrombin time on 12-08-2021 PT Coag (Bld) [Time] 21.0 s 11.7-14.9 [facility] Work Phone: Absolute lymphocyte counton 12-05-2021 Lymphocytes Auto (Unsp spec) [#/Vol] 2.97 10*3/uL 0.83-4.51 [facility] Work Phone: Basophil percentageon 2021 Basophils/100 WBC (Bld) 0.6 % 0-1 [facility] Work Phone: Chloride [Moles/Vol] 106 mmol/L 98-107 [facility] Work Phone: Eosinophils/100 WBC (Bld) 2.3 % 0-5 [facility] Work Phone: Glucose [Mass/Vol] 107 mg/dL 74-106 [facility] Work Phone: Comment on above: Fasting Glucose resu lt from 100 to 125 mg/dL suggests IMPAIRED HOMEOSTASIS per A.D.A. criteria. Neutrophils (Bld) [#/Vol] 5.6 10*3/uL 2.0-7.7 [facility] Work Phone: Neutrophils/100 WBC (Bld) 60.2 % 47-70 [facility] Work Phone: Potassium [Moles/Vol] 3.4 mmol/L 3.5-5.1 [facility] Work Phone: Sodium [Moles/Vol] 139 mmol/L 136-145 [facility] Work Phone: WBC (Bld) [#/Vol] 9.3 10*3/uL 4.4-11.0 [facility] Work Phone: Blood erythrocytes count (nu mber/volume)on 12-05-2021 RBC (Bld) [#/Vol] 4.49 10*6/uL 4.6-6.2 [place] Work Phone: Blood hemoglobin measurement (mass/volume)on 12-05-2021 Hemoglobin (Bld) [Mass/Vol] 12.1 g/dL 13.0-16.5 [facility] Work Phone: Blood lymphocytes/100 leukoc yteson 12-05-2021 Lymphocytes/100 WBC (Bld) 32.0 % 19-41 [facility] Work Phone: Blood monocytes/100 leukocyt eson 12-05-2021 Monocytes/100 WBC (Bld) 4.7 % 0-10 [facility] Work Phone: Blood platelet mean volumeon 12-05-2021 Platelet mean volume (Bld) [Entitic vol] 10.8 fL 6.2-12.0 [facility] Work Phone: Determination of erythrocyte mean corpuscular volume (MCV)on 12-05-2021 MCV (RBC) [Entitic vol] 84.9 fL 80-94 [facility] Work Phone: Hematocrit Auto (Bld) [Volum e fraction]on 12-05-2021 Hematocrit (Bld) [Volume fraction] 38.1 % 40-54 [facility] Work Phone: INR in Blood by Coagulation assayon 12-05-2021 INR Coag (Bld) [Relative time] 1.8 {INR} [facility] Work Phone: Laboratory - Chemistry and C hemistry - challengeon 12-05-2021 CO2 [Moles/Vol] 29.0 mmol/L 21.0-32.0 [facility] Work Phone: Urea nitrogen/Creatinine [Mass ratio] 25.4 mg/mg 10-20 [facility] Work Phone: Laboratory - Coagulationon 0 12-05-2021 PT Coag (PPP) [Time] 20.5 s 11.7-14.9 [facility] Work Phone: Laboratory - Hematology and Cell countson 12-05-2021 Erythrocyte distribution width (RBC) [Entitic vol] 48.5 fL 35.1-43.9 [facility] Work Phone: Erythrocyte distribution width (RBC) [Ratio] 15.7 % 11.6-14.6 [facility] Work Phone: Immature granulocytes/100 WBC (Bld) 0.200 % 0.0-0.9 [facility] Work Phone: Comment on above: IG% - Immature Granu locytes (promyelocytes, myelocytes and metamyelocytes) > 1% indicates that a LEFT SHIFT is Present. MCH (RBC) [Entitic mass] 26.9 pg 27.0-32.0 [facility] Work Phone: Nucleated RBC/100 WBC (Bld) [Ratio] 0 % 0-5 [facility] Work Phone: MCHC Auto (RBC) [Mass/Vol]on 12-05-2021 MCHC (RBC) [Mass/Vol] 31.8 g/dL 32-36 [facility] Work Phone: No Panel Informationon 12-05 Estimated GFR (MDRD) Amer 133 mL/min >60 [facility] Work Phone: Comment on above: GFR Calc Estimated GFR (MDRD) Non-Af Amer 110 mL/min >60 [facility] Work Phone: Comment on above: Non- GFR Calc Platelets bldon 12-05-2021 Platelets (Bld) [#/Vol] 363 10*3/uL 150-450 [facility] Work Phone: Serum or plasma calcium oral urement (mass/volume)on 12-05-2021 Calcium [Mass/Vol] 9.4 mg/dL 8.5-10.1 [facility] Work Phone: Serum or plasma creatinine m easurement (mass/volume)on 12-05-2021 Creatinine [Mass/Vol] 0.75 mg/dL 0.70-1.30 [facility] Work Phone: Comment on above: The validity of the calculated GFR & GFRAA in patients over 70 years has not been determined. Clinical correlation is essential. Serum or plasma urea nitroge n measurement (mass/volume)on 12-05-2021 Urea nitrogen [Mass/Vol] 19 mg/dL 7-18 [facility] Work Phone: Thin prep Papanicolaou smear with manual screeningon 12-05-2021 Thin prep Papanicolaou smear with manual screening 4 5-15 [facility] Work Phone: Basophil percentageon 2021 Basophil percentage 0 SEEN /hpf 0-5 [facility] Work Phone: Chloride [Moles/Vol] 104 mmol/L 98-107 [facility] Work Phone: Glucose [Mass/Vol] 90 mg/dL 74-106 [facility] Work Phone: Potassium [Moles/Vol] 3.7 mmol/L 3.5-5.1 [facility] Work Phone: Comment on above: Slight Hemolysis, Re sult may be falsely increased. Sodium [Moles/Vol] 138 mmol/L 136-145 [facility] Work Phone: WBC (Bld) [#/Vol] 10.7 10*3/uL 4.4-11.0 [place] Work Phone: Bilirubin Test strip Ql (U)o n 12-01-2021 Bilirubin Ql (U) Negative Negative [facility] Work Phone: Blood erythrocytes count (nu mber/volume)on 12-01-2021 RBC (Bld) [#/Vol] 4.33 10*6/uL 4.6-6.2 [place] Work Phone: Blood hemoglobin measurement (mass/volume)on 12-01-2021 Hemoglobin (Bld) [Mass/Vol] 11.6 g/dL 13.0-16.5 [facility] Work Phone: Blood platelet mean volumeon 12-01-2021 Platelet mean volume (Bld) [Entitic vol] 11.2 fL 6.2-12.0 [facility] Work Phone: Determination of erythrocyte mean corpuscular volume (MCV)on 12-01-2021 MCV (RBC) [Entitic vol] 85.2 fL 80-94 [facility] Work Phone: Hematocrit Auto (Bld) [Volum e fraction]on 12-01-2021 Hematocrit (Bld) [Volume fraction] 36.9 % 40-54 [facility] Work Phone: Ketones Test strip Ql (U)on 12-01-2021 Ketones Ql (U) Negative Negative [facility] Work Phone: Laboratory - Chemistry and C hemistry - challengeon 12-01-2021 CO2 [Moles/Vol] 27.0 mmol/L 21.0-32.0 [facility] Work Phone: Urea nitrogen/Creatinine [Mass ratio] 24.0 mg/mg 10-20 [facility] Work Phone: Laboratory - Coagulationon 0 12-01-2021 INR Coag (Bld) [Relative time] 1.6 {INR} [facility] Work Phone: Comment on above: Critical Value > 4.0 Laboratory - Hematology and Cell countson 12-01-2021 Erythrocyte distribution width (RBC) [Entitic vol] 47.9 fL 35.1-43.9 [facility] Work Phone: Erythrocyte distribution width (RBC) [Ratio] 15.5 % 11.6-14.6 [facility] Work Phone: MCH (RBC) [Entitic mass] 26.8 pg 27.0-32.0 [facility] Work Phone: MCHC Auto (RBC) [Mass/Vol]on 12-01-2021 MCHC (RBC) [Mass/Vol] 31.4 g/dL 32-36 [facility] Work Phone: Mucus LM Ql (Urine sed)on Mucus Ql (Urine sed) 0 SEEN /hpf [facility] Work Phone: Nitrite Test strip Ql (U)on 12-01-2021 Nitrite Ql (U) Negative Negative [facility] Work Phone: No Panel Informationon 12-01 Estimated GFR (MDRD) Amer 133 mL/min >60 [facility] Work Phone: Comment on above: GFR Calc Estimated GFR (MDRD) Non-Af Amer 110 mL/min >60 [facility] Work Phone: Comment on above: Non- GFR Calc Platelets bldon 12-01-2021 Platelets (Bld) [#/Vol] 336 10*3/uL 150-450 [facility] Work Phone: Protein Test strip Ql (U)on 12-01-2021 Protein Ql (U) 30 mg/dl Negative [facility] Work Phone: Serum or plasma calcium oral urement (mass/volume)on 12-01-2021 Calcium [Mass/Vol] 9.4 mg/dL 8.5-10.1 [facility] Work Phone: Serum or plasma creatinine m easurement (mass/volume)on 12-01-2021 Creatinine [Mass/Vol] 0.75 mg/dL 0.70-1.30 [facility] Work Phone: Comment on above: The validity of the calculated GFR & GFRAA in patients over 70 years has not been determined. Clinical correlation is essential. Serum or plasma urea nitroge n measurement (mass/volume)on 12-01-2021 Urea nitrogen [Mass/Vol] 18 mg/dL 7-18 [facility] Work Phone: Squamous epithelial cells de tection in urine sediment by light microscopyon 12-01-2021 Epithelial cells.squamous LM Ql (Urine sed) 0-5 SEEN /hpf 0-5 [facility] Work Phone: Thin prep Papanicolaou smear with manual screeningon 12-01-2021 Thin prep Papanicolaou smear with manual screening 7 5-15 [facility] Work Phone: Urine blood detectionon 11-05 RBC Ql (U) Negative Negative [facility] Work Phone: RBC Ql (U) 0 SEEN /hpf 0-5 [facility] Work Phone: Urine clarityon 12-01-2021 Clarity (U) Clear Clear [facility] Work Phone: Urine color determinationon 12-01-2021 Color (U) Yellow Yellow [facility] Work Phone: Urine glucose detectionon Glucose Ql (U) 50 mg/dl Normal [facility] Work Phone: Urine leukocyte esterase det ection by dipstickon 12-01-2021 Leukocyte esterase Test strip Ql (U) Negative Negative [facility] Work Phone: Urine pHon 12-01-2021 pH (U) 6.0 [pH] 5.0 - 8.0 [facility] Work Phone: Urine sediment bacteria coun t by microscopy (number/high power field)on 12-01-2021 Bacteria LM.HPF (Urine sed) [#/Area] 0 /[HPF] None Seen [facility] Work Phone: Urine sediment yeast count b y microscopy (number/high powered field)on 12-01-2021 Yeast LM.HPF (Urine sed) [#/Area] 2 /[HPF] None Seen [facility] Work Phone: Urine specific gravity measu rementon 12-01-2021 Specific gravity (U) [Rel density] 1.010 1.002-1.030 [facility] Work Phone: Urobilinogen Auto test strip Ql (U)on 12-01-2021 Urobilinogen Ql (U) Normal mg/dl Normal [facility] Work Phone: Whole blood prothrombin time on 12-01-2021 PT Coag (Bld) [Time] 19.8 s 11.7-14.9 [facility] Work Phone: Laboratory - Coagulationon 0 11-28-2021 INR Coag (Bld) [Relative time] 1.6 {INR} [facility] Work Phone: Comment on above: Critical Value > 4.0 Whole blood prothrombin time on 11-28-2021 PT Coag (Bld) [Time] 18.8 s 11.7-14.9 [facility] Work Phone: INR in Blood by Coagulation assayon 11-23-2021 INR Coag (Bld) [Relative time] 2.7 {INR} [facility] Work Phone: Laboratory - Coagulationon 0 11-23-2021 PT Coag (PPP) [Time] 28.0 s 11.7-14.9 [facility] Work Phone: Laboratory - Coagulationon 0 11-22-2021 INR Coag (Bld) [Relative time] 3.8 {INR} [facility] Work Phone: Comment on above: Critical Value > 4.0 Whole blood prothrombin time on 11-22-2021 PT Coag (Bld) [Time] 42.8 s 11.7-14.9 [facility] Work Phone: INR in Blood by Coagulation assayon 11-21-2021 INR Coag (Bld) [Relative time] 3.9 {INR} [facility] Work Phone: Laboratory - Coagulationon 0 11-21-2021 PT Coag (PPP) [Time] 37.7 s 11.7-14.9 [facility] Work Phone: Whole blood prothrombin time on 11-21-2021 PT Coag (Bld) [Time] 45.5 s 11.7-14.9 [facility] Work Phone: INR in Blood by Coagulation assayon 11-14-2021 INR Coag (Bld) [Relative time] 3.1 {INR} [facility] Work Phone: Laboratory - Coagulationon 0 11-14-2021 PT Coag (PPP) [Time] 31.4 s 11.7-14.9 [facility] Work Phone: Laboratory - Coagulationon 0 11-08-2021 INR Coag (Bld) [Relative time] 2.5 {INR} [facility] Work Phone: Comment on above: Critical Value > 4.0 Whole blood prothrombin time on 11-08-2021 PT Coag (Bld) [Time] 29.0 s 11.7-14.9 [facility] Work Phone: Basophil percentageon 2021 Chloride [Moles/Vol] 106 mmol/L 98-107 [facility] Work Phone: Glucose [Mass/Vol] 100 mg/dL 74-106 [facility] Work Phone: Comment on above: Fasting Glucose resu lt from 100 to 125 mg/dL suggests IMPAIRED HOMEOSTASIS per A.D.A. criteria. Potassium [Moles/Vol] 3.7 mmol/L 3.5-5.1 [facility] Work Phone: Sodium [Moles/Vol] 140 mmol/L 136-145 [facility] Work Phone: WBC (Bld) [#/Vol] 8.8 10*3/uL 4.4-11.0 [facility] Work Phone: Blood erythrocytes count (nu mber/volume)on 11-04-2021 RBC (Bld) [#/Vol] 4.05 10*6/uL 4.6-6.2 [place] Work Phone: Blood hemoglobin measurement (mass/volume)on 11-04-2021 Hemoglobin (Bld) [Mass/Vol] 11.1 g/dL 13.0-16.5 [facility] Work Phone: Blood platelet mean volumeon 11-04-2021 Platelet mean volume (Bld) [Entitic vol] 10.8 fL 6.2-12.0 [facility] Work Phone: Determination of erythrocyte mean corpuscular volume (MCV)on 11-04-2021 MCV (RBC) [Entitic vol] 86.9 fL 80-94 [facility] Work Phone: Hematocrit Auto (Bld) [Volum e fraction]on 11-04-2021 Hematocrit (Bld) [Volume fraction] 35.2 % 40-54 [facility] Work Phone: INR in Blood by Coagulation assayon 11-04-2021 INR Coag (Bld) [Relative time] 1.8 {INR} [facility] Work Phone: Laboratory - Chemistry and C hemistry - challengeon 11-04-2021 CO2 [Moles/Vol] 26.0 mmol/L 21.0-32.0 [facility] Work Phone: Urea nitrogen/Creatinine [Mass ratio] 18.3 mg/mg 10-20 [facility] Work Phone: Laboratory - Coagulationon 0 11-04-2021 PT Coag (PPP) [Time] 20.4 s 11.7-14.9 [facility] Work Phone: Laboratory - Hematology and Cell countson 11-04-2021 Erythrocyte distribution width (RBC) [Entitic vol] 48.1 fL 35.1-43.9 [facility] Work Phone: Erythrocyte distribution width (RBC) [Ratio] 15.0 % 11.6-14.6 [facility] Work Phone: MCH (RBC) [Entitic mass] 27.4 pg 27.0-32.0 [facility] Work Phone: MCHC Auto (RBC) [Mass/Vol]on 11-04-2021 MCHC (RBC) [Mass/Vol] 31.5 g/dL 32-36 [facility] Work Phone: No Panel Informationon 11-04 D-Dimer Quantitative (PE/DVT) 0.56 FEU/ug/m 0.27-0.49 [facility] Work Phone: Comment on above: D-Dimer ELEVATED (>0 .49): Additional studies and clinicalassessments are indicated to conclude diagnosis of:Deep Vein Thrombosis (DVT) or Pulmonary Embolism (PE) Estimated GFR (MDRD) Amer 155 mL/min >60 [facility] Work Phone: Comment on above: GFR Calc Estimated GFR (MDRD) Non-Af Amer 128 mL/min >60 [facility] Work Phone: Comment on above: Non- GFR Calc Troponin I High Sensitivity 11 pg/mL 3.0-78.0 [facility] Work Phone: Comment on above: Please Note: New Fadumo t Units and Gender Specific Reference Ranges. For more information see Policy Stat Procedure [place] High Sensitivity Troponin (TNIH) and attachments. Platelets bldon 11-04-2021 Platelets (Bld) [#/Vol] 364 10*3/uL 150-450 [facility] Work Phone: Serum or plasma C reactive p rotein measurement (mass/volume)on 11-04-2021 CRP [Mass/Vol] 31.90 mg/L 0.0-3.0 [facility] Work Phone: Comment on above: C-Reactive Protein ( CRP) provides useful information for thediagnosis, therapy and monitoring of inflammatory processesand associated diseases. For the evaluation of Relative Riskfor Cardiovascular Disease, a High Sensitivity CRP (HSCRP)should be ordered. Serum or plasma calcium oral urement (mass/volume)on 11-04-2021 Calcium [Mass/Vol] 9.1 mg/dL 8.5-10.1 [facility] Work Phone: Serum or plasma creatinine m easurement (mass/volume)on 11-04-2021 Creatinine [Mass/Vol] 0.66 mg/dL 0.70-1.30 [facility] Work Phone: Comment on above: The validity of the calculated GFR & GFRAA in patients over 70 years has not been determined. Clinical correlation is essential. Serum or plasma urea nitroge n measurement (mass/volume)on 11-04-2021 Urea nitrogen [Mass/Vol] 12 mg/dL 7-18 [facility] Work Phone: Thin prep Papanicolaou smear with manual screeningon 11-04-2021 Thin prep Papanicolaou smear with manual screening 8 5-15 [facility] Work Phone: Complete Urinalysison 2021 Appearance (U) Clear Normal [facility] on [facility]: Result Comment: . Performed By: #### C UA2 ####[id number] [place] [address] Bacteria Moderate Abnormal Negative [facility] Comment on above: Result Comment: . Performed By: #### C UA2 ####[id number] [place] [address] Bilirubin,Urine Negative Normal Negative [facility] Comment on above: Result Comment: . Performed By: #### C UA2 ####[facility] [id number] [place], [place] Cast, Hyaline Negative Normal Negative [facility] Comment on above: Result Comment: . Performed By: #### C UA2 ####[id number] [place], [place] Color (U) Yellow Normal Lt. Yellow [facility] Comment on above: Result Comment: . Performed By: #### C UA2 ####[id number] [place], [place] Glucose Ql (U) Normal Normal Normal (<70) [facility] Comment on above: Result Comment: . Performed By: #### C UA2 ####[id number] [place], [place] Ketone,Urine Negative Normal Negative [facility] Comment on above: Result Comment: . Performed By: #### C UA2 ####[address] [place], [place] Leukocytes,Urine Negative Normal Negative [facility] Comment on above: Result Comment: . Performed By: #### C UA2 ####[id number] [place], [place] Mucous Threads Few Normal Negative [facility] Comment on above: Result Comment: . Performed By: #### C UA2 ####[id number] [place], [place] Nitrites,Urine Negative Normal Negative [facility] Comment on above: Result Comment: . Performed By: #### C UA2 ####[facility] [id number] [place], [place] Occult Blood,Urine 0.1 mg/dL Abnormal Negative [facility] Comment on above: Result Comment: . Performed By: #### C UA2 ####[id number] [place], [place] pH,Urine 5.5 Normal 5.0-8.0 [facility] Comment on above: Result Comment: . Performed By: #### C UA2 ####[place] [id number] [place], [place] Protein (U) [Mass/Vol] 10 mg/dL Abnormal Negative [facility] Comment on above: Result Comment: . Performed By: #### C UA2 ####[address] RBC, Urine 26 - 50 Abnormal 0-2 [facility] Comment on above: Result Comment: . Performed By: #### C UA2 ####[address] Specific [place],Urine 1.023 Normal 1.005 - 1.030 [facility] Comment on above: Result Comment: . Performed By: #### C UA2 ####[address] Squamous Epithelial Negative Normal 3-5 [facility] Comment on above: Result Comment: . Performed By: #### C UA2 ####[address] Urobilinogen,Urine Normal Normal Normal (0-1) [facility] Comment on above: Result Comment: . Performed By: #### C UA2 ####[address] WBC, Urine 0 - 2 Normal 0-5 [facility] Comment on above: Result Comment: . Performed By: #### C UA2 ####[address] Urinalysison 11-01-2021 Appearance (U) Clear Clear [...] Protein (U) [Mass/Vol] 10 mg/dL Abnormal Negative [facility] Comment on above: . RBC, UA 26-50 Abnormal 0 - 2 /[HPF] [facility] Comment on above: . Specific [place], Urine 1.023 [facility] Comment on above: . Squam Epithel, UA Negative 3 - 5 /[HPF] [facility] Comment on above: . Urobilinogen, Urine Normal Normal ( 0-1) mg/dL [facility] Comment on above: . WBC, UA 0-2 0 - 5 /[HPF] [facility] Comment on above: . Test Performed by [facility], [address] [place] [id number] [place] [address] - [facility] LAB [facility] Basic Metabolic Panelon 06- Anion gap [Moles/Vol] 6 mmol/L Normal 3-13 [facility] Comment on above: Performed By: #### P T/AP, TROPN, BMP3, HEMDF #### [address] Calcium [Mass/Vol] 9.1 mg/dL Normal 8.4-10.4 [facility] Comment on above: Performed By: #### P T/AP, TROPN, BMP3, HEMDF #### [address] CO2 [Moles/Vol] 28 mmol/L Normal 22-30 [facility] Comment on above: Performed By: #### P T/AP, TROPN, BMP3, HEMDF #### [address] Glucose [Mass/Vol] 120 mg/dL High 70-100 [facility] Comment on above: Performed By: #### P T/AP, TROPN, BMP3, HEMDF #### [address] Urea nitrogen [Mass/Vol] 17 mg/dL Normal 7-17 [facility] Comment on above: Performed By: #### P T/AP, TROPN, BMP3, HEMDF #### [facility] [address] [place], [place] Creatinine [Mass/Vol] 0.65 mg/dL Normal 0.52-1.25 [facility] Comment on above: Performed By: #### P T/AP, TROPN, BMP3, HEMDF #### [facility] [address] [place], [place] eGFR OTHER > 90.0 Normal >60 [facility] Comment on above: Result Comment: KDIG O [...] #### P T/AP, TROPN, BMP3, HEMDF #### [address] [address] [place], [place] GFR/1.73 sq M.predicted among blacks MDRD (S/P/Bld) [Vol rate/Area] mL/min/{1.73_m2} Normal >60 [facility] Comment on above: Performed By: #### P T/AP, TROPN, BMP3, HEMDF #### [facility] [address] [place], [place] Potassium [Moles/Vol] 3.8 mmol/L Normal 3.5-5.1 [facility] Comment on above: Performed By: #### P T/AP, TROPN, BMP3, HEMDF #### [facility] [address] [place] [address] Chloride [Moles/Vol] 101 mmol/L Normal 98-107 [facility] Comment on above: Performed By: #### P T/AP, TROPN, BMP3, HEMDF #### [facility] [address] [place], [place] Sodium [Moles/Vol] 134 mmol/L Low 135-145 [facility] Comment on above: Performed By: #### P T/AP, TROPN, BMP3, HEMDF #### [facility] [address] [place], [place] Anion gap [Moles/Vol] 6 mmol/L 3 - 13 mmol/L [facility] Calcium [Mass/Vol] 9.1 mg/dL 8.4 - 10. 4 mg/dL [facility] Chloride [Moles/Vol] 101 mmol/L 98 - 10 7 mmol/L [facility] CO2 [Moles/Vol] 28 mmol/L 22 - 30 mmol/L [facility] Creatinine [Mass/Vol] 0.65 mg/dL 0.52 - 1.25 mg/dL [facility] EGFR IF NonAfrican Ukrainian >90.0 >60 mL/min [facility] Comment on above: KDIGO guidelines pro [...] - 17 mg/dL [facility] Test Performed by [id number] [place] [address] LAB [facility] CBC with Auto Differentialon 10-31-2021 [...] 11.3 g/dL Low 13.0 - 18.0 g/dL [facility] Interpretation and review of laboratory results [...] - 10.7 10*3/uL [facility] Test Performed by [facility], [address] [place] [address] LAB [facility] CR Abdomen APon 10-31-2021 CR Abdomen AP Patient Name: ANDREW SIFUENTES Diagnostic Radiology ACCESSION EXAM DATE/TIME PROCEDURE ORDERING PROVIDER [id number] 10/31/2021 20:36 EDT CR Abdomen AP [id number] -MYRON DURAN CPT code 95394 Reason For Exam (CR Abdomen AP) vp information technology shunt, 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 CHEST PORTABLE [...] Transcribed Date and Time: 10/31/2021 8:49 Normal [facility] CR Chest Portableon 11-01-19 CR Chest Portable Patient Name: ANDREW SIFUENTES Diagnostic Radiology ACCESSION EXAM DATE/TIME PROCEDURE ORDERING PROVIDER [id number] 10/31/2021 20:36 EDT CR Chest Portable [id number] MARTÍNEZ CPT code 75960 Reason For Exam (CR Chest Portable) AMS [...] Transcribed Date and Time: 10/31/2021 8:[address] [facility] [address] HEAD WO CONTRASTon 2021 Patient Name: ANDREW SIFUENTES Computed Tomography ACCESSION EXAM DATE/TIME PROCEDURE ORDERING PROVIDER [id number] 10/31/2021 20:[address] Head or Brain w/o [id number] -MYRON DURAN Contrast CPT code 86719 Reason For Exam (CT Head or Brain w/o Contrast) AMS, previous TRACK VEHICLE REPAIRER shunt Report Examination: CT Head Clinical Information: AMS, previous TRACK VEHICLE REPAIRER shunt Comparison: 10/26/2021, MRI 10/27/2021 Findings: Serial [...] J Transcribed Date and Time: 10/31/2021 8:54 [facility] Alan Hernandez MD - 10/31/2021 [id number] Computed Tomography ACCESSION EXAM DATE/TIME PROCEDURE ORDERING PROVIDER [id number] 10/31/2021 20:[address] Head or Brain w/o [id number] -MYRON DURAN Contrast CPT code 45619 Reason For Exam (CT Head or Brain w/o Contrast) AMS, previous TRACK VEHICLE REPAIRER shunt Report Examination: CT Head Clinical Information: AMS, previous TRACK VEHICLE REPAIRER shunt Comparison: 10/26/2021, MRI 10/27/2021 Findings: Serial [...] Brain w/o Contrast Patient [id number] Computed Tomography ACCESSION EXAM DATE/TIME PROCEDURE ORDERING PROVIDER [id number] 10/31/2021 20:[address] Head or Brain w/o [id number] -MYRON DURAN Contrast CPT code 85598 Reason For Exam (CT Head or Brain w/o Contrast) AMS, previous TRACK VEHICLE REPAIRER shunt Report Examination: CT Head Clinical Information: AMS, previous TRACK VEHICLE REPAIRER shunt Comparison: 10/26/2021, MRI 10/27/2021 Findings: Serial [...] Transcribed Date and Time: 10/31/2021 8:54 Normal [facility] ED Provider Noteon ED Provider Note Emergency Department Encounter [facility] EMERGENCY DEPT Patient: Andrew Sifuentes [...] are mis-transcribed.) Dante Kim MD Acute Care [facility] Dante Kim MD 10/31/21 2211 [facility] ED Provider Note [facility] EMERGENCY DEPT EMERGENCY DEPARTMENT ENCOUNTER Pt Name: Andrew Sifuentes Birthdate 1950 Date of evaluation: 10/31/2021 Provider: Myron Duran MD CHIEF COMPLAINT Chief Complaint Patient presents with ? Altered Mental Status Pt presents to ED via [facility] for complaint listed. Pt is from [place] [facility]. Pt's LKW was 1000 hours today. Per [...] have a history of hydrocephalus with a TRACK VEHICLE REPAIRER shunt. 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 REVIEW OF [...] (HCC) ? Kidney stone ? Neuropathy ? TRACK VEHICLE REPAIRER (ventriculoperitoneal) shunt status SURGICAL HISTORY Past Surgical [...] of Transportati (more content not included)... 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 JIMENEZB: 1950 Requested By: MYRON DURAN Order Number: [id number] Latosha MD: Dante Kim Measurements Intervals Avery Rate: 91 P: 41 FL: 154 QRS: 50 QRSD: 147 T: 8 QT: 385 QTc: 474 Interpretive Statements Sinus rhythm Right bundle branch block Electronically Signed On 10-31-2021 20:36:25 EDT by Dante Kim [facility] Dante Kim M D - 10/31/2021 [facility] Test Date: 2021-10-31 Pat Name: ANDREW GUSTAFSONYER Department: [facility] Room: 40 Gender: M 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: ANDRES GARCIA: 1950 Requested By: MYRON DURAN Order Number: [id number] Reading MD: Dante Kim Measurements Intervals Avery Rate: 91 P: 41 FL: 154 QRS: 50 QRSD: 147 T: 8 QT: 385 QTc: 474 Interpretive Statements Sinus rhythm Right bundle branch block Electronically Signed On 10-31-2021 20:36:25 EDT by Dante Kim [facility] Work Phone: EKG 12 Lead - Chest PainOrde red By: Dante Kim on 10-31-2021 [facility] Work Phone: Hemogram w/ Autodiffon 10-31 Abs Baso Cnt 0.1 10*3/uL Normal 0.0-0.2 [facility] Comment on above: Performed By: #### P T/AP, TROPN, BMP3, HEMDF #### [address] [address] Abs Neutrophile Cnt 6.0 10*3/uL Normal 1.8-7.0 [facility] Comment on above: Performed By: #### P T/AP, TROPN, BMP3, HEMDF #### [address] [address] Basophils/100 WBC (Bld) 1.1 % Normal 0.0-2.0 [facility] Comment on above: Performed By: #### P T/AP, TROPN, BMP3, HEMDF #### [address] [address] Eosinophils (Bld) [#/Vol] 0.2 10*3/uL Normal 0.0-0.5 [facility] Comment on above: Performed By: #### P T/AP, TROPN, BMP3, HEMDF #### [address] [address] Eosinophils/100 WBC (Bld) 2.3 % Normal 1.0-6.0 [facility] Comment on above: Performed By: #### P T/AP, TROPN, BMP3, HEMDF #### [address] [place], [place] Erythrocyte distribution width (RBC) [Ratio] 17.2 % High 11.5-14.5 [facility] Comment on above: Performed By: #### P T/AP, TROPN, BMP3, HEMDF #### [address] [address] [address] [place], [place] Granulocytes/100 WBC (Bld) 61.8 % Normal 40.0-80.0 [facility] Comment on above: Performed By: #### P T/AP, TROPN, BMP3, HEMDF #### [address] [address] [address] [place], [place] Hematocrit (Bld) [Volume fraction] 35.0 % Low 40.0-52.0 [facility] Comment on above: Performed By: #### P T/AP, TROPN, BMP3, HEMDF #### [address] [address] [place], [place] Hemoglobin (Bld) [Mass/Vol] 11.3 g/dL Low 13.0-18.0 [facility] Comment on above: Performed By: #### P T/AP, TROPN, BMP3, HEMDF #### [address] [address] [place], [place] Lymphocytes (Bld) [#/Vol] 2.8 10*3/uL Normal 1.0-4.3 [facility] Comment on above: Performed By: #### P T/AP, TROPN, BMP3, HEMDF #### [address] [address] [address] [place], [place] Lymphocytes/100 WBC (Bld) 29.2 % Normal 20.0-40.0 [facility] Comment on above: Performed By: #### P T/AP, TROPN, BMP3, HEMDF #### [address] [address] [address] [place], [place] MCH (RBC) [Entitic mass] 27.5 pg Normal 26.0-34.0 [facility] Comment on above: Performed By: #### P T/AP, TROPN, BMP3, HEMDF #### [address] [address] [address] [place], [place] MCHC 32.3 % Normal 32.0-36.0 [facility] Comment on above: Performed By: #### P T/AP, TROPN, BMP3, HEMDF #### [address] [address] [place], [place] MCV (RBC) [Entitic vol] 85.0 fL Normal 80.0-98.0 [facility] Comment on above: Performed By: #### P T/AP, TROPN, BMP3, HEMDF #### [address] [address] [address] [place], [place] Monocytes (Bld) [#/Vol] 0.5 10*3/uL Normal 0.0-0.8 [facility] Comment on above: Performed By: #### P T/AP, TROPN, BMP3, HEMDF #### [address] Monocytes/100 WBC (Bld) 5.6 % Normal 2.0-10.0 [facility] Comment on above: Performed By: #### P T/AP, TROPN, BMP3, HEMDF #### [address] [place], [place] Platelet mean volume (Bld) [Entitic vol] 8.6 fL Normal 7.4-12.4 [facility] Comment on above: Result Comment: MPV is a calculated measurement using platelet volume ratio. Performed By: #### P T/AP, TROPN, BMP3, HEMDF #### [address] [place], [place] Platelets (Bld) [#/Vol] 348 10*3/uL Normal 140-440 [facility] Comment on above: Performed By: #### P T/AP, TROPN, BMP3, HEMDF #### [address] RBC (Bld) [#/Vol] 4.12 10*6/uL Low 4.40-5.90 [facility] Comment on above: Performed By: #### P T/AP, TROPN, BMP3, HEMDF #### [facility] [address] [place] [address] WBC (Bld) [#/Vol] 9.7 10*3/uL Normal 3.6-10.7 [facility] Comment on above: Performed By: #### P T/AP, TROPN, BMP3, HEMDF #### [facility] [address] [place] [address] Laboratory - Coagulationon 0 10-31-2021 INR Coag (Bld) [Relative time] 2.0 {INR} [facility] Work Phone: Comment on above: Critical Value > 4.0 No Panel Informationon 10-31 Radiology Study observation (narrative) [facility] Work Phone: PROTIME/INR & PTTon 11-01-19 aPTT Coag (Bld) [Time] 39.2 s High 20.0 - 30.5 s [facility] Comment on above: NOTE: The therapeuti c time for Heparin anticoagulation, based on Xa activity inhibition, is an APTT of 46-80 seconds. INR Coag (Bld) [Relative time] 1.9 {INR} High [facility] Comment on above: Recommended Anticoag ulant [...] Interpretation and review of laboratory results Abnormal [facility] PT Coag (PPP) [Time] 19.8 s High 9.0 - 12.0 s [facility] Comment on above: . Test Performed by [facility], [address] [place] [address] [facility] Protime AND APTTon aPTT Coag (Bld) [Time] 39.2 s High 20.0-30.5 [facility] Comment on above: Result Comment: NOTE : The therapeutic time for Heparin anticoagulation, based on Xa activity inhibition, is an APTT of 46-80 seconds. Performed By: #### P T/AP, TROPN, BMP3, HEMDF #### [address] INR 1.9 High 0.9-1.1 [facility] Comment on above: Result Comment: Harry mmended [...] #### P T/AP, TROPN, BMP3, HEMDF #### [address] PT Coag (PPP) [Time] 19.8 s High 9.0-12.0 [facility] Comment on above: Result Comment: . Performed By: #### P T/AP, TROPN, BMP3, HEMDF #### [address] [address] Troponin Ion 10-31-2021 Troponin I.cardiac [Mass/Vol] ng/mL Normal 0.000-0.034 [facility] Comment on above: Result Comment: . Performed By: #### P T/AP, TROPN, BMP3, HEMDF #### [address] [address] Troponin x1on 10-31-2021 Troponin I.cardiac [Mass/Vol] ng/mL 0.000 - 0.034 ng/mL [facility] Comment on above: . Test Performed by [id number] [place] [address] - [facility] Whole blood prothrombin time on 10-31-2021 PT Coag (Bld) [Time] 23.7 s 11.7-14.9 [facility] Work Phone: XR ABDOMEN (KUB) (SINGLE AP VIEW)on 10-31-2021 Patient Name: ANDREW SIFUENTES Diagnostic Radiology ACCESSION EXAM DATE/TIME PROCEDURE ORDERING PROVIDER [id number] 10/31/2021 20:36 EDT CR Abdomen AP [id number] -MYRON DURAN CPT code 16460 Reason For Exam (CR Abdomen AP) vp information technology shunt, 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 CHEST PORTABLE [...] Transcribed Date and Time: 10/31/2021 8:49 [facility] Huang Reynoso MD - 10/31/2021 Patient Name: ANDREW SIFUENTES Diagnostic Radiology ACCESSION EXAM DATE/TIME PROCEDURE ORDERING PROVIDER [id number] 10/31/2021 20:36 EDT CR Abdomen AP [id number] MYRON GALINDO CPT code 82851 Reason For Exam (CR Abdomen AP) vp information technology shunt, 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 CHEST PORTABLE [...] CHEST PORTABLEon 11-01-19 Patient [facility]: [id number] Radiology ACCESSION EXAM DATE/TIME PROCEDURE ORDERING PROVIDER [id number] 10/31/2021 20:36 EDT CR Chest Portable [id number] MYRON GALINDO CPT code 05621 Reason For Exam (CR Chest Portable) AMS [...] WENDELL Transcribed Date and Time: 10/31/2021 8:49 [facility] Huang Reynoso MD - 10/31/2021 Patient Name: ANDREW SIFUENTES Diagnostic Radiology ACCESSION EXAM DATE/TIME PROCEDURE ORDERING PROVIDER [id number] 10/31/2021 20:36 EDT CR Chest Portable [id number] MYRON GALINDO CPT code 86659 Reason For Exam (CR Chest Portable) AMS [...] and Time: 10/31/2021 8:49 [facility] Work Phone: [phone] XR CHEST PORTABLEOrdered By: Huang Reynoso on 10-31-2021 [facility] Work Phone: Lupus Anticoagulanton 2021 DRVVT Confirmation Test Not Applicable Negative ratio [facility] Work Phone: [phone] dRVVT Screen 38 [facility] Work Phone: [phone] Hex Phosph Neut Test Not Applicable Negative NA [facility] Work Phone: [phone] Interpretation and review of laboratory results Abnormal [facility] Work Phone: [phone] LUPUS INTERPRETATION See Note [facility] Work Phone: [phone] Comment on above: Lupus anticoagulant not [...] has not already been performed. Performed by [facility], [address] [place] [address] www.[employer]!, Quiana Castro MD - Lab. Director Platelet Neutralization Not Applicable Negative NA [facility] Work Phone: [phone] PTT-D Heparin Neutralized 48 [facility] Work Phone: [phone] PTT-LA 55 High [facility] Work Phone: [phone] Reptilase Tm 17.6 <=21.9 sec [facility] Work Phone: [phone] Thrombin Time 25.3 High [facility] Work Phone: [phone] [facility] Work Phone: [phone] Lupus Anticoagulant Reflexiv e Panelon 10-29-2021 aPTT Coag (Bld) [Time] 55 s High 32-48 [facility] Comment on above: Performed By: #### C OVAG #### [facility] [address] [place] [address] aPTT Coag (Bld) [Time] 48 s Normal 32-48 [facility] Comment on above: Performed By: #### C OVAG #### [facility] [address] [place] [address] DRVVT 1:1 Mix Not Applicable Normal 33-44 [facility] Work Phone: Comment on above: Performed By: #### C OVAG #### [facility] [address] [place] [address] dRVVT Confirmation Not Applicable Normal Negative [facility] Comment on above: Performed By: #### C OVAG #### [facility] [address] [place] [address] dRVVT Screen 38 sec Normal 33-44 [facility] Comment on above: Performed By: #### C OVAG #### [facility] [address] [place] [address] Hexagonal Phospholipid Neutral Reflex Not Applicable Normal Negative [facility] Comment on above: Performed By: #### C OVAG #### [facility] [address] [place] [address] Lupus Anticoagulant Interpretation See Note Normal [facility] Comment on above: Result Comment: Lupu s [...] has not already been performed. Performed by [facility], [address] [place] [address] www.[employer]!, Quiana Castro MD - Lab. Director Performed By: #### C OVAG #### [facility] [address] [place] [address] Platelet Neutralization (PTT-D, Confirm) Not Applicable Normal Negative [facility] Comment on above: Performed By: #### C OVAG #### [facility] [address] [place] [address] PT Coag (PPP) [Time] 14.7 s Normal 12.0-15.5 [facility] Work Phone: Comment on above: Performed By: #### C OVAG #### [facility] [address] [place] [address] PTT-D 1:1 Mix Not Applicable Normal 32-48 [facility] Work Phone: Comment on above: Performed By: #### C OVAG #### [facility] [address] [place] [address] Reptilase Time 17.6 sec Normal <=21.9 [facility] Comment on above: Performed By: #### C OVAG #### [facility] [address] [place] [address] Thrombin Time 25.3 sec High 14.7-19.5 [facility] Comment on above: Performed By: #### C OVAG #### [facility] [address] [place] [address] POCT COVID-19, Antigenon SARS-CoV-2 Nucleocapsid Antigen Negative Negative [facility] Comment on above: A negative result does not rule out the possibility of SARS-CoV-2 infection. NAAT-based methods should be considered for symptomatic patients presenting greater than seven days after onset of symptoms. Method: Lateral flow immunoassay. Fact sheets for healthcare providers and patients can be found at the following sites: https://www.fda.gov/media/866303/download https://www.fda.gov/media/891024/download Test Performed by [facility], [address] [place], [place] [id number] [place] [address] LAB [facility] Prothrombin Timeon 2 INR 2.7 High 0.9-1.1 [facility] Comment on above: Result Comment: Harry mmended [...] Infarction Performed By: #### P T #### [facility] [address] [place] [address] PT Coag (PPP) [Time] 27.4 s High 9.0-12.0 [facility] Comment on above: Result Comment: . Performed By: #### P T #### [facility] [address] [place] [address] Protime-INRon 10-29-2021 INR Coag (Bld) [Relative time] 2.7 {INR} High [facility] Work Phone: Comment on above: Recommended [...] Interpretation and review of laboratory results Abnormal [facility] Work Phone: PT Coag (PPP) [Time] 27.4 s High 9.0 - 12.0 s [facility] Work Phone: Comment on above: . Test Performed by [facility], [address] [place], [place] [address] [facility] Work Phone: SARS-CoV-2 Antigenon 022 SARS-CoV-2 Antigen Negative Normal Negative [facility] Comment on above: Result Comment: A negative result does not rule out the possibility of SARS-CoV-2 infection. NAAT-based methods should be considered for symptomatic patients presenting greater than seven days after onset of symptoms. Method: Lateral flow immunoassay. Fact sheets for healthcare providers and patients can be found at the following sites: https://www.fda.gov/media/407237/download https://www.fda.gov/media/224651/download Performed By: #### C OVAG #### [facility] [address] [place] [address] CBCon 10-28-2021 Hematocrit (Bld) [Volume fraction] 33.4 % Low 40.0 - 52.0 % [facility] Work Phone: 1) Hemoglobin (Bld) [Mass/Vol] 11.0 g/dL Low 13.0 - 18.0 g/dL [facility] Work Phone: 1) Interpretation and review of laboratory results Abnormal [facility] Work Phone: ) MCH (RBC) [Entitic mass] 27.8 pg 26.0 - 34.0 pg [facility] Work Phone: ) MCHC (RBC) [Mass/Vol] 32.8 % 32.0 - 36.0 % [facility] Work Phone: ) MCV (RBC) [Entitic vol] 84.8 fL 80.0 - 98.0 fL [facility] Work Phone: ) Platelet distribution width (Bld) [Ratio] 17.1 % High 11.5 - 14.5 % [facility] Work Phone: ) Platelet mean volume (Bld) [Entitic vol] 8.3 fL 7.4 - 12.4 fL [facility] Work Phone: ) Comment on above: MPV is a calculated measurement using platelet volume ratio. Platelets (Bld) [#/Vol] 344 10*3/uL 140 - 440 10*3/uL [facility] Work Phone: [phone] RBC (Bld) [#/Vol] 3.94 10*6/uL Low 4.40 - 5.9 0 10*6/uL [facility] Work Phone: ) 222 WBC (Bld) [#/Vol] 10.0 10*3/uL 3.6 - 10.7 10*3/uL [facility] Work Phone: [phone] Test Performed by [facility], [address] [place] [address] [facility] Work Phone: Comp Metabolic Panelon 10-28 ALP [Catalytic activity/Vol] 103 U/L Normal 38-126 [facility] Comment on above: Performed By: #### C A19O, LUPUS #### The performing lab is in the report. #### NSEO #### [facility] #### HEMDF, LDH3, BMP3, MG3, PT, CEA2 #### [facility] [address] [place] [address] #### B2GPM, B2GPA, B2GPG #### [address] ALT [Catalytic activity/Vol] 26 U/L Normal 0-49 [facility] Comment on above: Result Comment: The ALT test is performed by an updated assay method. Please note that the reference intervals have been changed and are now sex specific. Performed By: #### C A19O, LUPUS #### The performing lab is in the report. #### NSEO #### [facility] #### HEMDF, LDH3, BMP3, MG3, PT, CEA2 #### [facility] [address] [place] [address] #### B2GPM, B2GPA, B2GPG #### [address] AST [Catalytic activity/Vol] 24 U/L Normal 15-46 [facility] Comment on above: Performed By: #### C A19O, LUPUS #### The performing lab is in the report. #### NSEO #### [facility] #### HEMDF, LDH3, BMP3, MG3, PT, CEA2 #### [facility] [address] [place] [address] #### B2GPM, B2GPA, B2GPG #### [address] Calcium [Mass/Vol] 9.1 mg/dL Normal 8.4-10.4 [facility] Comment on above: Performed By: #### C A19O, LUPUS #### The performing lab is in the report. #### NSEO #### [facility] #### HEMDF, LDH3, BMP3, MG3, PT, CEA2 #### [facility] [address] [place] [address] #### B2GPM, B2GPA, B2GPG #### [address] Glucose [Mass/Vol] 117 mg/dL High 70-100 [facility] Comment on above: Performed By: #### C A19O, LUPUS #### The performing lab is in the report. #### NSEO #### [facility] #### HEMDF, LDH3, BMP3, MG3, PT, CEA2 #### [address] [place] [address] #### B2GPM, B2GPA, B2GPG #### [address] Urea nitrogen [Mass/Vol] 16 mg/dL Normal 7-17 [facility] Comment on above: Performed By: #### C A19O, LUPUS #### The performing lab is in the report. #### NSEO #### [facility] #### HEMDF, LDH3, BMP3, MG3, PT, CEA2 #### [address] [place] [address] #### B2GPM, B2GPA, B2GPG #### [address] Anion gap [Moles/Vol] 5 mmol/L Normal 3-13 [facility] Comment on above: Performed By: #### C A19O, LUPUS #### The performing lab is in the report. #### NSEO #### [facility] #### HEMDF, LDH3, BMP3, MG3, PT, CEA2 #### [place] [address] [place] [address] #### B2GPM, B2GPA, B2GPG #### [address] Bilirubin [Mass/Vol] 0.4 mg/dL Normal 0.2-1.3 [facility] Comment on above: Performed By: #### C A19O, LUPUS #### The performing lab is in the report. #### NSEO #### [facility] #### HEMDF, LDH3, BMP3, MG3, PT, CEA2 #### [address] [facility] [place] [address] #### B2GPM, B2GPA, B2GPG #### [address] CO2 [Moles/Vol] 29 mmol/L Normal 22-30 [facility] Comment on above: Performed By: #### C A19O, LUPUS #### The performing lab is in the report. #### NSEO #### [facility] #### HEMDF, LDH3, BMP3, MG3, PT, CEA2 #### [address] [facility] [place] [address] #### B2GPM, B2GPA, B2GPG #### [address] Creatinine [Mass/Vol] 0.71 mg/dL Normal 0.52-1.25 [facility] Comment on above: Performed By: #### C A19O, LUPUS #### The performing lab is in the report. #### NSEO #### [facility] #### HEMDF, LDH3, BMP3, MG3, PT, CEA2 #### [address] [facility] [place] [address] #### B2GPM, B2GPA, B2GPG #### [address] eGFR OTHER > 90.0 Normal >60 [facility] Comment on above: Result Comment: KDIG O [...] HEMDF, LDH3, BMP3, MG3, PT, CEA2 #### [facility] [address] [place] [address] #### B2GPM, B2GPA, B2GPG #### [facility] [address] [address] GFR/1.73 sq M.predicted among blacks MDRD (S/P/Bld) [Vol rate/Area] mL/min/{1.73_m2} Normal >60 [facility] Comment on above: Performed By: #### C A19O, LUPUS #### The performing lab is in the report. #### NSEO #### [facility] #### HEMDF, LDH3, BMP3, MG3, PT, CEA2 #### [facility] [address] [place] [address] #### B2GPM, B2GPA, B2GPG #### [address] [phone] Protein [Mass/Vol] 7.1 g/dL Normal 6.3-8.2 [facility] Comment on above: Performed By: #### C A19O, LUPUS #### The performing lab is in the report. #### NSEO #### [facility] #### HEMDF, LDH3, BMP3, MG3, PT, CEA2 #### [place] [address] [place] [address] #### B2GPM, B2GPA, B2GPG #### [address] Potassium [Moles/Vol] 3.5 mmol/L Normal 3.5-5.1 [facility] Comment on above: Performed By: #### C A19O, LUPUS #### The performing lab is in the report. #### NSEO #### [facility] #### HEMDF, LDH3, BMP3, MG3, PT, CEA2 #### [place] [address] [place] [address] #### B2GPM, B2GPA, B2GPG #### [address] Sodium [Moles/Vol] 138 mmol/L Normal 135-145 [facility] Comment on above: Performed By: #### C A19O, LUPUS #### The performing lab is in the report. #### NSEO #### [facility] #### HEMDF, LDH3, BMP3, MG3, PT, CEA2 #### [address] [place] [address] #### B2GPM, B2GPA, B2GPG #### [address] Albumin [Mass/Vol] 3.7 g/dL Normal 3.5-5.0 [facility] Comment on above: Performed By: #### C A19O, LUPUS #### The performing lab is in the report. #### NSEO #### [facility] #### HEMDF, LDH3, BMP3, MG3, PT, CEA2 #### [place] [address] [place] [address] #### B2GPM, B2GPA, B2GPG #### [address] Chloride [Moles/Vol] 104 mmol/L Normal 98-107 [facility] Comment on above: Performed By: #### C A19O, LUPUS #### The performing lab is in the report. #### NSEO #### [facility] #### HEMDF, LDH3, BMP3, MG3, PT, CEA2 #### [facility] [address] [place] [address] #### B2GPM, B2GPA, B2GPG #### [facility] [address] [place] [address] Comprehensive Metabolic Pane [facility] 10-28-2021 Albumin [Mass/Vol] 3.7 g/dL 3.5 - 5.0 g/dL [facility] Work Phone: ALP (Bld) [Catalytic activity/Vol] 103 U/L 38 - 126 U/L [facility] Work Phone: ALT [Catalytic activity/Vol] 26 U/L 0 - 49 U/L [facility] Work Phone: Comment on above: The ALT test is perf ormed by an updated assay method. Please note that the reference intervals have been changed and are now sex specific. Anion gap [Moles/Vol] 5 mmol/L 3 - 13 mmol/L [facility] Work Phone: AST [Catalytic activity/Vol] 24 U/L 15 - 46 U/L [facility] Work Phone: [phone] Bilirubin [Mass/Vol] 0.4 mg/dL 0.2 - 1 .3 mg/dL [facility] Work Phone: [phone] Calcium [Mass/Vol] 9.1 mg/dL 8.4 - 10. 4 mg/dL [facility] Work Phone: [phone] Chloride [Moles/Vol] 104 mmol/L 98 - 10 7 mmol/L [facility] Work Phone: 222 CO2 [Moles/Vol] 29 mmol/L 22 - 30 mmol/L [facility] Work Phone: Creatinine [Mass/Vol] 0.71 mg/dL 0.52 - 1.25 mg/dL [facility] Work Phone: [phone] EGFR IF NonAfrican Ukrainian >90.0 >60 mL/min [facility] Work Phone: Comment on above: KDIGO [...] fraction] 7.1 g/dL 6.3 - 8.2 g/dL [facility] Work Phone: [phone] GFR/1.73 sq M.predicted among blacks MDRD (S/P/Bld) [Vol rate/Area] mL/min/{1.73_m2} >60 mL/min [facility] Work Phone: [phone] Glucose [Mass/Vol] 117 mg/dL High 70 - 100 mg/dL [facility] Work Phone: Interpretation and review of laboratory results Abnormal [facility] Work Phone: [phone] Potassium [Moles/Vol] 3.5 mmol/L 3.5 - 5.1 mmol/L [facility] Work Phone: Sodium [Moles/Vol] 138 mmol/L 135 - 145 mmol/L [facility] Work Phone: [phone] Urea nitrogen (BldV) [Mass/Vol] 16 mg/dL 7 - 17 mg/dL [facility] Work Phone: Test Performed by [facility], [address] [place], [place] [address] [facility] Work Phone: [phone] Hemogramon 10-28-2021 Erythrocyte distribution width (RBC) [Ratio] 17.1 % High 11.5-14.5 [facility] Comment on above: Performed By: #### C A19O, LUPUS #### The performing lab is in the report. #### NSEO #### [facility] #### HEMDF, LDH3, BMP3, MG3, PT, CEA2 #### [place] [address] [place] [address] #### B2GPM, B2GPA, B2GPG #### [address] Hematocrit (Bld) [Volume fraction] 33.4 % Low 40.0-52.0 [facility] Comment on above: Performed By: #### C A19O, LUPUS #### The performing lab is in the report. #### NSEO #### [facility] #### HEMDF, LDH3, BMP3, MG3, PT, CEA2 #### [address] [place], [place] #### B2GPM, B2GPA, B2GPG #### [address] Hemoglobin (Bld) [Mass/Vol] 11.0 g/dL Low 13.0-18.0 [facility] Comment on above: Performed By: #### C A19O, LUPUS #### The performing lab is in the report. #### NSEO #### [facility] #### HEMDF, LDH3, BMP3, MG3, PT, CEA2 #### [address] [place], [place] #### B2GPM, B2GPA, B2GPG #### [address] MCH (RBC) [Entitic mass] 27.8 pg Normal 26.0-34.0 [facility] Comment on above: Performed By: #### C A19O, LUPUS #### The performing lab is in the report. #### NSEO #### [facility] #### HEMDF, LDH3, BMP3, MG3, PT, CEA2 #### [facility] [address] [place] #### B2GPM, B2GPA, B2GPG #### [address] MCHC 32.8 % Normal 32.0-36.0 [facility] Comment on above: Performed By: #### C A19O, LUPUS #### The performing lab is in the report. #### NSEO #### [facility] #### HEMDF, LDH3, BMP3, MG3, PT, CEA2 #### [address] [place] #### B2GPM, B2GPA, B2GPG #### [address] MCV (RBC) [Entitic vol] 84.8 fL Normal 80.0-98.0 [facility] Comment on above: Performed By: #### C A19O, LUPUS #### The performing lab is in the report. #### NSEO #### [facility] #### HEMDF, LDH3, BMP3, MG3, PT, CEA2 #### [address] [place] #### B2GPM, B2GPA, B2GPG #### [address] Platelet mean volume (Bld) [Entitic vol] 8.3 fL Normal 7.4-12.4 [facility] Comment on above: Result Comment: MPV is a calculated measurement using platelet volume ratio. Performed By: #### C A19O, LUPUS #### The performing lab is in the report. #### NSEO #### [facility] #### HEMDF, LDH3, BMP3, MG3, PT, CEA2 #### [address] [place] #### B2GPM, B2GPA, B2GPG #### [address] Platelets (Bld) [#/Vol] 344 10*3/uL Normal 140-440 [facility] Comment on above: Performed By: #### C A19O, LUPUS #### The performing lab is in the report. #### NSEO #### [facility] #### HEMDF, LDH3, BMP3, MG3, PT, CEA2 #### [facility] [address] [place] [address] #### B2GPM, B2GPA, B2GPG #### [facility] [address] [place], [place] RBC (Bld) [#/Vol] 3.94 10*6/uL Low 4.40-5.90 [facility] Comment on above: Performed By: #### C A19O, LUPUS #### The performing lab is in the report. #### NSEO #### [facility] #### HEMDF, LDH3, BMP3, MG3, PT, CEA2 #### [facility] [address] [place] #### B2GPM, B2GPA, B2GPG #### [address] WBC (Bld) [#/Vol] 10.0 10*3/uL Normal 3.6-10.7 [facility] Comment on above: Performed By: #### C A19O, LUPUS #### The performing lab is in the report. #### NSEO #### [facility] #### HEMDF, LDH3, BMP3, MG3, PT, CEA2 #### [facility] [address] [place] #### B2GPM, B2GPA, B2GPG #### [address] Neuron Specific Enolaseon Neuron Specific Enolase 20.8 Normal [facility] Comment on above: Result Comment: Neur on Specific Enolase, Serum 20.8 ng/mL H (Ref Interval: <=12.7) NSE and Hgb are elevated in the specimen. The elevated NSE may be a result of hemolysis as NSE is expressed in red blood cells. Interpret results with caution. INTERPRETIVE INFORMATION: Neuron Specific Enolase in Serum This assay is performed using the [employer] NSE Kryptor Immunoassay. Results obtained with different assay methods or kits cannot be used interchangeably. Results cannot be interpreted as absolute evidence of the presence or absence of malignant disease. This test was developed and its performance characteristics determined by [facility]. It has not been cleared or approved by the [place] Food and Drug Administration. This test was performed in a CLIA certified laboratory and is intended for clinical purposes. Performed By: #### C OVAG #### [facility] [address] [place] [address] Neuron specific enolase (NSE )on 10-28-2021 Neuron Specific Enolase 20.8 [facility] Work Phone: Comment on above: Neuron Specific Enol ase, Serum 20.8 ng/mL H (Ref Interval: <=12.7) NSE and Hgb are elevated in the specimen. The elevated NSE may be a result of hemolysis as NSE is expressed in red blood cells. Interpret results with caution. INTERPRETIVE INFORMATION: Neuron Specific Enolase in Serum This assay is performed using the [employer] NSE Kryptor Immunoassay. Results obtained with different assay methods or kits cannot be used interchangeably. Results cannot be interpreted as absolute evidence of the presence or absence of malignant disease. This test was developed and its performance characteristics determined by [facility]. It has not been cleared or approved by the [place] Food and Drug Administration. This test was performed in a CLIA certified laboratory and is intended for clinical purposes. 1 [facility] Work Phone: Prothrombin Timeon 2 INR 3.1 High 0.9-1.1 [facility] Comment on above: Result Comment: Harry mmended [...] HEMDF, LDH3, BMP3, MG3, PT, CEA2 #### [facility] [address] [place] [address] #### B2GPM, B2GPA, B2GPG #### [address] [phone] PT Coag (PPP) [Time] 30.8 s High 9.0-12.0 [facility] Comment on above: Result Comment: . Performed By: #### C A19O, LUPUS #### The performing lab is in the report. #### NSEO #### [facility] #### HEMDF, LDH3, BMP3, MG3, PT, CEA2 #### [facility] [address] [place] [address] #### B2GPM, B2GPA, B2GPG #### [address] [phone] [facility] 10-28-2021 INR Coag (Bld) [Relative time] 3.1 {INR} High [facility] Work Phone: Comment on above: Recommended [...] Interpretation and review of laboratory results Abnormal [facility] Work Phone: PT Coag (PPP) [Time] 30.8 s High 9.0 - 12.0 s [facility] Work Phone: Comment on above: . Test Performed by [facility], [address] [facility] [place] LAB [facility] Work Phone: MRI BRAIN WO CONTRASTon 10-06 Patient Name: ANDREW SIFUENTES Magnetic Resonance Imaging ACCESSION EXAM DATE/TIME PROCEDURE ORDERING PROVIDER [id number] 10/27/2021 13:14 EDT MRI Brain w/o Contrast UNASSIGNED, UNASSIGNED CPT code 90796 Reason For Exam (MRI Brain w/o Contrast) stroke Patient has TRACK VEHICLE REPAIRER shunt in place, please follow Radiology protocol [...] MD - 10/27/2021 [facility]: [id number] Imaging ACCESSION EXAM DATE/TIME PROCEDURE ORDERING PROVIDER [id number] 10/27/2021 13:14 EDT MRI Brain w/o Contrast UNASSIGNED, UNASSIGNED CPT code 68349 Reason For Exam (MRI Brain w/o Contrast) stroke Patient has TRACK VEHICLE REPAIRER shunt in place, please follow Radiology protocol [...] Imaging ACCESSION EXAM DATE/TIME PROCEDURE ORDERING PROVIDER [id number] 10/27/2021 13:14 EDT MRI Brain w/o Contrast UNASSIGNED, UNASSIGNED CPT code 92340 Reason For Exam (MRI Brain w/o Contrast) stroke Patient has TRACK VEHICLE REPAIRER shunt in place, please follow Radiology protocol [...] on Final Dictating Physician: MD KHARI, VENUS ARMOS Signed Date and Time: 10/27/2021 2:38 pm Signed by: MD KHARI, VENUS RAMOS Transcribed Date and Time: 10/27/2021 2:39 Normal [facility] Prothrombin Timeon INR 2.1 High 0.9-1.1 [facility] Comment on above: Result Comment: Harry mmended [...] Infarction Performed By: #### P T #### [facility] [address] [place] [address] PT Coag (PPP) [Time] 21.9 s High 9.0-12.0 [facility] Work Phone: Comment on above: . Result Comment: . Performed By: #### P T #### [facility] [address] [place] [address] Protime-INRon 10-27-2021 INR Coag (Bld) [Relative time] 2.1 {INR} High [facility] Work Phone: Comment on above: Recommended [...] Interpretation and review of laboratory results Abnormal [facility] Work Phone: Test Performed by [facility], [address], [place], [place] [id number] [place] [address] LAB [facility] Work Phone: CT HEAD WO CONTRASTon 2021 Patient Name: ANDREW SIFUENTES Computed Tomography ACCESSION EXAM DATE/TIME PROCEDURE ORDERING PROVIDER [id number] 10/26/2021 11:[address] Head or Brain w/o EDWIN, MICROSOFT APPLICATION DEVELOPER, SARINA Contrast CPT code 64031 Reason For Exam (CT Head or Brain w/o Contrast) hydrocephalus. thank you Report CLINICAL INFORMATION: Hydrocephalus. Shunt. 3 mm axial cuts through the head are obtained without IV contrast. The examination is compared to a previous study dated 06/29/2014. FINDINGS: Old TRACK VEHICLE REPAIRER shunt tubing is noted bilaterally. The new [...] are clear. IMPRESSION: 1. Old and new TRACK VEHICLE REPAIRER shunt tubing. 2. No hydrocephalus. 3. Atrophy and evidence of small-vessel ischemic disease. 4. No CT evidence of an acute intracranial process. Report Dictated on --- Final --- Dictating Physician: MD SOLANO JEFFREY Signed Date and Time: 10/26/2021 11:42 am Signed by: MD SOLANO JEFFREY Transcribed Date and Time: 10/26/2021 11:43 [facility] Albert Solano MD - 10/26/2021 Patient Name: ANDREW SIFUENTES Computed Tomography ACCESSION EXAM DATE/TIME PROCEDURE ORDERING PROVIDER [id number] 10/26/2021 11:[address] Head or Brain w/o JUNIE PINEDA, SARINA Contrast CPT code 93745 Reason For Exam (CT Head or Brain w/o Contrast) hydrocephalus. thank you Report CLINICAL INFORMATION: Hydrocephalus. Shunt. 3 mm axial cuts through the head are obtained without IV contrast. The examination is compared to a previous study dated 06/29/2014. FINDINGS: Old TRACK VEHICLE REPAIRER shunt tubing is noted bilaterally. The new [...] are clear. IMPRESSION: 1. Old and new TRACK VEHICLE REPAIRER shunt tubing. 2. No hydrocephalus. 3. Atrophy [...] Tomography ACCESSION EXAM DATE/TIME PROCEDURE ORDERING PROVIDER [id number] 10/26/2021 11:[address] Head or Brain w/o EDWIN, MICROSOFT APPLICATION DEVELOPER, SARINA Contrast CPT code 42524 Reason For Exam (CT Head or Brain w/o Contrast) hydrocephalus. thank you Report CLINICAL INFORMATION: Hydrocephalus. Shunt. 3 mm axial cuts through the head are obtained without IV contrast. The examination is compared to a previous study dated 06/29/2014. FINDINGS: Old TRACK VEHICLE REPAIRER shunt tubing is noted bilaterally. The new [...] are clear. IMPRESSION: 1. Old and new TRACK VEHICLE REPAIRER shunt tubing. 2. No hydrocephalus. 3. Atrophy and evidence of small-vessel ischemic disease. 4. No CT evidence of an acute intracranial process. Report Dictated on Final Dictating Physician: MD SOLANO JEFFREY Signed Date and Time: 10/26/2021 11:42 am Signed by: MD SOLANO JEFFREY Transcribed Date and Time: 10/26/2021 11:43 Normal [facility] EEG awake and asleepon 10-26 Bony Tompkins MD 10/26/2021 4:06 PM [facility] [address] [place] [id number] ROUTINE EEG REPORT Patient Name: Andrew Sifuentes : 1950 Date of Study: 10/26/2021 Duration Recorded: 23 minutes EEG#: [id number] INVENTORY CONTROL ANALYST: CASTRO PROVIDER REQUESTING STUDY: Dr. Barreto REASON FOR EXAM: seizures HISTORY: Andrew Sifuentes is a 71 y.o. 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 At present patient is awake, follows commands, was able to tell his name, and that he was in hospital but not oriented to time. Per documentation patient had NCSE in May 2021, was on Vimpat, but it was discontinued as there was no evidence of recurrent seizures in July 2021 by Neurology at [facility], per daughter patient was on Dilantin for 31 yrs. Per daughter patient had seizures in the past and also felt he had staring episodes this morning. Per daughter patient has been essentially bed bound in [place] since May 2021 but prior to that [...] g 17 g Oral Daily PRN May Csah MD acetaminophen (TYLENOL) tablet 650 mg 650 [...] study with video was carried out at [facility]. Scalp electrodes were positioned in person by an cardiac cath lab radiology technologist, following patient education, according to the 10-20 International system of electrode placement and maintained for integrity and quality of the recording. EEG data with video was recorded continuously and digitally stored. The cardiac cath lab radiology technologist reviewed all automated detections and manual [...] No normal vari (more content not included)... [facility] Work Phone: [employer] Work Phone: No Panel Informationon 10-26 Radiology Study observation (narrative) [facility] Work Phone: Prothrombin Timeon 2 INR 1.9 High 0.9-1.1 [facility] Comment on above: Result Comment: Harry [...] Infarction Performed By: #### C OVAG #### [facility] [address] [place] [address] PT Coag (PPP) [Time] 19.7 s High 9.0-12.0 [facility] Comment on above: Result Comment: . Performed By: #### C OVAG #### [facility] [address] [place] [address] Protime-INRon 10-26-2021 INR Coag (Bld) [Relative time] 1.9 {INR} High [facility] Work Phone: Comment on above: Recommended [...] Interpretation and review of laboratory results Abnormal [facility] Work Phone: PT Coag (PPP) [Time] 19.7 s High 9.0 - 12.0 s [facility] Work Phone: Comment on above: . Test Performed by [facility], [address] [place] [address] [facility] Work Phone: CA 19-9on 10-25-2021 CA 19-9 17 U/mL Normal <=35 [facility] Work Phone: Comment on above: INTERPRETIVE [...] or absence of malignant disease. Performed By: [facility] [address] [place] [address] Improvement Manager: Quiana Castro MD Result Comment: INTE RPRETIVE [...] or absence of malignant disease. Performed By: [facility] [address] [place] [address] Improvement Manager: Quiana Castro MD Performed By: #### C OVAG #### [facility] [address] [place] [address] Cancer Antigen 19-9on 2021 [facility] Work Phone: Prothrombin Timeon 2 INR 1.5 High 0.9-1.1 [facility] Comment on above: Result Comment: Harry mmended [...] Infarction Performed By: #### P T #### [facility] [address] [place] [address] PT Coag (PPP) [Time] 15.6 s High 9.0-12.0 [facility] Comment on above: Result Comment: . Performed By: #### P T #### [facility] [address] [place] [address] Protime-INRon 10-25-2021 INR Coag (Bld) [Relative time] 1.5 {INR} High [facility] Work Phone: Comment on above: Recommended [...] Interpretation and review of laboratory results Abnormal [facility] Work Phone: PT Coag (PPP) [Time] 15.6 s High 9.0 - 12.0 s [facility] Work Phone: Comment on above: . Test Performed by [facility], [address], [place], [place] [address] [facility] Work Phone: B-2 Glycoprotein (IGA)on Beta-2 Glyco 1 IgA <2.0 U/mL [facility] Work Phone: Comment on above: Interpretive Informa tion: Results equal to or greater than 20 U/mL = POSITIVE Results less than 20 U/mL = NEGATIVE B2 Glycoprotein I (IgM) Abon 10-24-2021 Beta-2 Glyco 1 IgM <1.5 U/mL [employer] Work Phone: Comment on above: Interpretive Informa tion: Results equal to or greater than 20 U/mL = POSITIVE Results less than 20 U/mL = NEGATIVE B2 Glycoprotein I Igg Abon 0 10-24-2021 Beta-2 Glyco 1 IgG <1.4 U/mL [facility] Work Phone: Comment on above: Interpretive Informa tion: Results equal to or greater than 20 U/mL = POSITIVE Results less than 20 U/mL = NEGATIVE Basic Metabolic Panelon 06-2 -2021 Anion gap [Moles/Vol] 8 mmol/L Normal 3-13 [facility] Comment on above: Performed By: #### C A19O, LUPUS #### The performing lab is in the report. #### NSEO #### [facility] #### HEMDF, LDH3, BMP3, MG3, PT, CEA2 #### [facility] [address] [place] [address] #### B2GPM, B2GPA, B2GPG #### [address] Calcium [Mass/Vol] 8.8 mg/dL Normal 8.4-10.4 [facility] Comment on above: Performed By: #### C A19O, LUPUS #### The performing lab is in the report. #### NSEO #### [facility] #### HEMDF, LDH3, BMP3, MG3, PT, CEA2 #### [facility] [address] [place] [address] #### B2GPM, B2GPA, B2GPG #### [address] CO2 [Moles/Vol] 25 mmol/L Normal 22-30 [facility] Comment on above: Performed By: #### C A19O, LUPUS #### The performing lab is in the report. #### NSEO #### [facility] #### HEMDF, LDH3, BMP3, MG3, PT, CEA2 #### [facility] [address] [place] [address] #### B2GPM, B2GPA, B2GPG #### [address] Creatinine [Mass/Vol] 0.74 mg/dL Normal 0.52-1.25 [facility] Comment on above: Performed By: #### C A19O, LUPUS #### The performing lab is in the report. #### NSEO #### [facility] #### HEMDF, LDH3, BMP3, MG3, PT, CEA2 #### [facility] [address] [place] [address] #### B2GPM, B2GPA, B2GPG #### [address] [address] eGFR OTHER > 90.0 Normal >60 [facility] Comment on above: Result Comment: KDIG O [...] HEMDF, LDH3, BMP3, MG3, PT, CEA2 #### [facility] [address] [place] [address] #### B2GPM, B2GPA, B2GPG #### [address] [address] GFR/1.73 sq M.predicted among blacks MDRD (S/P/Bld) [Vol rate/Area] mL/min/{1.73_m2} Normal >60 [facility] Comment on above: Performed By: #### C A19O, LUPUS #### The performing lab is in the report. #### NSEO #### [facility] #### HEMDF, LDH3, BMP3, MG3, PT, CEA2 #### [facility] [address] [place] [address] #### B2GPM, B2GPA, B2GPG #### [address] Glucose [Mass/Vol] 116 mg/dL High 70-100 [facility] Comment on above: Performed By: #### C A19O, LUPUS #### The performing lab is in the report. #### NSEO #### [facility] #### HEMDF, LDH3, BMP3, MG3, PT, CEA2 #### [facility] [address] [place] [address] #### B2GPM, B2GPA, B2GPG #### [address] Urea nitrogen [Mass/Vol] 19 mg/dL High 7-17 [facility] Comment on above: Performed By: #### C A19O, LUPUS #### The performing lab is in the report. #### NSEO #### [facility] #### HEMDF, LDH3, BMP3, MG3, PT, CEA2 #### [facility] [address] [place] [address] #### B2GPM, B2GPA, B2GPG #### [address] Chloride [Moles/Vol] 107 mmol/L Normal 98-107 [facility] Comment on above: Performed By: #### C A19O, LUPUS #### The performing lab is in the report. #### NSEO #### [facility] #### HEMDF, LDH3, BMP3, MG3, PT, CEA2 #### [facility] [address] [place] [address] #### B2GPM, B2GPA, B2GPG #### [address] Potassium [Moles/Vol] 3.9 mmol/L Normal 3.5-5.1 [facility] Comment on above: Performed By: #### C A19O, LUPUS #### The performing lab is in the report. #### NSEO #### [facility] #### HEMDF, LDH3, BMP3, MG3, PT, CEA2 #### [facility] [address] [place] [address] #### B2GPM, B2GPA, B2GPG #### [address] Sodium [Moles/Vol] 140 mmol/L Normal 135-145 [facility] Comment on above: Performed By: #### C A19O, LUPUS #### The performing lab is in the report. #### NSEO #### [facility] #### HEMDF, LDH3, BMP3, MG3, PT, CEA2 #### [facility] [address] [place] [address] #### B2GPM, B2GPA, B2GPG #### [facility] [address] [place] [address] Anion gap [Moles/Vol] 8 mmol/L 3 - 13 mmol/L [facility] Calcium [Mass/Vol] 8.8 mg/dL 8.4 - 10. 4 mg/dL [facility] Chloride [Moles/Vol] 107 mmol/L 98 - 10 7 mmol/L [facility] CO2 [Moles/Vol] 25 mmol/L 22 - 30 mmol/L [facility] Creatinine [Mass/Vol] 0.74 mg/dL 0.52 - 1.25 mg/dL [facility] EGFR IF NonAfrican Ukrainian >90.0 >60 mL/min [facility] Comment on above: KDIGO guidelines pro [...] 116 mg/dL High 70 - 100 mg/dL [facility] Interpretation and review of laboratory results Abnormal [facility] Potassium [Moles/Vol] 3.9 mmol/L 3.5 - 5.1 mmol/L [facility] Sodium [Moles/Vol] 140 mmol/L 135 - 145 mmol/L [facility] Urea nitrogen (BldV) [Mass/Vol] 19 mg/dL High 7 - 17 mg/dL [facility] Test Performed by [facility], [address] [place], [place] [id number] [place] [address] LAB [facility] Beta-2 Glycoprotein I IgAon 10-24-2021 Beta-2 Glycoprotein I IgA < 2.0 Normal [facility] Comment on above: Result Comment: Inte rpretive Information: Results equal to or greater than 20 U/mL = POSITIVE Results less than 20 U/mL = NEGATIVE Performed By: #### C OVAG #### [facility] [address] [place] [address] Beta-2 Glycoprotein I IgGon 10-24-2021 Beta-2 Glycoprotein I IgG < 1.4 Normal [facility] Comment on above: Result Comment: Inte rpretive Information: Results equal to or greater than 20 U/mL = POSITIVE Results less than 20 U/mL = NEGATIVE Performed By: #### C OVAG #### [facility] [address] [place] [address] Beta-2 Glycoprotein I IgMon 10-24-2021 Beta-2 Glycoprotein I IgM < 1.5 Normal [facility] Comment on above: Result Comment: Inte rpretive Information: Results equal to or greater than 20 U/mL = POSITIVE Results less than 20 U/mL = NEGATIVE Performed By: #### C OVAG #### [facility] [address] [place] [address] No Panel Informationon 10-24 [facility] Test Performed by [facility], [address] [place] [id number] [place] [address] LAB [facility] Work Phone: PROTEIN C FUNCTIONALon 10-24 Interpretation and review of laboratory results Abnormal [facility] Protein C-Functional 185 % High 83 - 168 % [facility] Comment on above: INTERPRETIVE INFORMA TION: [...] reference intervals for this test in the [facility] Laboratory Test Directory ([employer]!). Performed by [facility], [address] [facility],[place] [id number] www.[employer]!, Quiana Castro MD - Lab. Director Protein C, Functionalon 10-06 Protein C, Functional 185 % High 83-168 [facility] Comment on above: Result Comment: INTE RPRETIVE [...] reference intervals for this test in the [facility] Laboratory Test Directory ([employer]!). Performed by [facility], [address] [facility],[place] [id number] www.[employer]!, Quiana Castro MD - Lab. Director Performed By: #### P T #### [facility] [address] [place] [address] Protein S, Functionalon 10-06 Protein S, Functional 138 % Normal 66-143 [facility] Comment on above: INTERPRETIVE INFORMA TION: Protein [...] reference intervals for this test in the [facility] Laboratory Test Directory ([employer]!). Performed by [facility], [address] [place] [address] www.[employer]!, Quiana Castro MD - Lab. Director Result [...] reference intervals for this test in the [facility] Laboratory Test Directory ([employer]!). Performed by [facility], [address] [place] [address] www.[employer]!, Quiana Castro MD - Lab. Director Performed By: #### P T #### [facility] [address] [place] [address] Prothrombin Timeon 2 INR 1.2 High 0.9-1.1 [facility] Comment on above: Result Comment: Harry [...] HEMDF, LDH3, BMP3, MG3, PT, CEA2 #### [facility] [address] [place] [address] #### B2GPM, B2GPA, B2GPG #### [facility] [address] [place] [address] PT Coag (PPP) [Time] 12.6 s High 9.0-12.0 [facility] Comment on above: Result Comment: . Performed By: #### C A19O, LUPUS #### The performing lab is in the report. #### NSEO #### [facility] #### HEMDF, LDH3, BMP3, MG3, PT, CEA2 #### [facility] [address] [place] [address] #### B2GPM, B2GPA, B2GPG #### [facility] [address] [place] [address] Protime-INRon 10-24-2021 INR Coag (Bld) [Relative time] 1.2 {INR} High [facility] Comment on above: Recommended Anticoag ulant [...] Interpretation and review of laboratory results Abnormal [facility] PT Coag (PPP) [Time] 12.6 s High 9.0 - 12.0 s [facility] Comment on above: . Test Performed by [facility], [address] [place], [place] [id number] [place] [address] LAB [facility] Basic Metabolic Panelon - Anion gap [Moles/Vol] 10 mmol/L Normal 3-13 [facility] Comment on above: Performed By: #### C A19O, LUPUS #### The performing lab is in the report. #### NSEO #### [facility] #### HEMDF, LDH3, BMP3, MG3, PT, CEA2 #### [facility] [address] [place] [address] #### B2GPM, B2GPA, B2GPG #### [address] Calcium [Mass/Vol] 9.6 mg/dL Normal 8.4-10.4 [facility] Comment on above: Performed By: #### C A19O, LUPUS #### The performing lab is in the report. #### NSEO #### [facility] #### HEMDF, LDH3, BMP3, MG3, PT, CEA2 #### [facility] [address] [facility] [address] #### B2GPM, B2GPA, B2GPG #### [address] CO2 [Moles/Vol] 27 mmol/L Normal 22-30 [facility] Comment on above: Performed By: #### C A19O, LUPUS #### The performing lab is in the report. #### NSEO #### [facility] #### HEMDF, LDH3, BMP3, MG3, PT, CEA2 #### [place] [address] [facility] [place] [address] #### B2GPM, B2GPA, B2GPG #### [address] Glucose [Mass/Vol] 109 mg/dL High 70-100 [facility] Comment on above: Performed By: #### C A19O, LUPUS #### The performing lab is in the report. #### NSEO #### [facility] #### HEMDF, LDH3, BMP3, MG3, PT, CEA2 #### [place] [address] [facility] [place] [address] #### B2GPM, B2GPA, B2GPG #### [address] Urea nitrogen [Mass/Vol] 18 mg/dL High 7-17 [facility] Comment on above: Performed By: #### C A19O, LUPUS #### The performing lab is in the report. #### NSEO #### [facility] #### HEMDF, LDH3, BMP3, MG3, PT, CEA2 #### [place] [address] [place] [address] #### B2GPM, B2GPA, B2GPG #### [address] [address] Creatinine [Mass/Vol] 0.82 mg/dL Normal 0.52-1.25 [facility] Comment on above: Performed By: #### C A19O, LUPUS #### The performing lab is in the report. #### NSEO #### [facility] #### HEMDF, LDH3, BMP3, MG3, PT, CEA2 #### [facility] [address] [place] [address] #### B2GPM, B2GPA, B2GPG #### [address] [address] GFR/1.73 sq M.predicted among blacks MDRD (S/P/Bld) [Vol rate/Area] mL/min/{1.73_m2} Normal >60 [facility] Comment on above: Performed By: #### C A19O, LUPUS #### The performing lab is in the report. #### NSEO #### [facility] #### HEMDF, LDH3, BMP3, MG3, PT, CEA2 #### [place] [address] [place] [address] #### B2GPM, B2GPA, B2GPG #### [address] [address] GFR/1.73 sq M.predicted among non-blacks MDRD (S/P/Bld) [Vol rate/Area] 89.9 mL/min/{1.73_m2} Normal >60 [facility] Comment on above: Result Comment: KDIG O [...] HEMDF, LDH3, BMP3, MG3, PT, CEA2 #### [facility] [address] [place] [address] #### B2GPM, B2GPA, B2GPG #### [address] [address] Chloride [Moles/Vol] 104 mmol/L Normal 98-107 [facility] Comment on above: Performed By: #### C A19O, LUPUS #### The performing lab is in the report. #### NSEO #### [facility] #### HEMDF, LDH3, BMP3, MG3, PT, CEA2 #### [facility] [address] [place] [address] #### B2GPM, B2GPA, B2GPG #### [address] [address] Potassium [Moles/Vol] 3.9 mmol/L Normal 3.5-5.1 [facility] Comment on above: Performed By: #### C A19O, LUPUS #### The performing lab is in the report. #### NSEO #### [facility] #### HEMDF, LDH3, BMP3, MG3, PT, CEA2 #### [facility] [address] [place] [address] #### B2GPM, B2GPA, B2GPG #### [place] [address] [place] [address] Sodium [Moles/Vol] 142 mmol/L Normal 135-145 [facility] Comment on above: Performed By: #### C A19O, LUPUS #### The performing lab is in the report. #### NSEO #### [facility] #### HEMDF, LDH3, BMP3, MG3, PT, CEA2 #### [facility] [address] [place] [address] #### B2GPM, B2GPA, B2GPG #### [facility] [address] [place] [address] Anion gap [Moles/Vol] 10 mmol/L 3 - 13 mmol/L [facility] Work Phone: Calcium [Mass/Vol] 9.6 mg/dL 8.4 - 10. 4 mg/dL [facility] Work Phone: Chloride [Moles/Vol] 104 mmol/L 98 - 10 7 mmol/L [facility] Work Phone: CO2 [Moles/Vol] 27 mmol/L 22 - 30 mmol/L [facility] Work Phone: Creatinine [Mass/Vol] 0.82 mg/dL 0.52 - 1.25 mg/dL [facility] Work Phone: EGFR IF NonAfrican Ukrainian 89.9 mL/min >60 [facility] Work Phone: Comment on above: KDIGO [...] MDRD (S/P/Bld) [Vol rate/Area] mL/min/{1.73_m2} >60 mL/min [employer] Work Phone: ) Glucose [Mass/Vol] 109 mg/dL High 70 - 100 mg/dL [facility] Work Phone: Interpretation and review of laboratory results Abnormal [facility] Work Phone: 222 Potassium [Moles/Vol] 3.9 mmol/L 3.5 - 5.1 mmol/L [facility] Work Phone: Sodium [Moles/Vol] 142 mmol/L 135 - 145 mmol/L [facility] Work Phone: Urea nitrogen (BldV) [Mass/Vol] 18 mg/dL High 7 - 17 mg/dL [facility] Work Phone: CBC with Auto Differentialon 10-23-2021 Absolute Baso # 0.1 10*3/uL 0.0 - 0.2 10*3/uL [facility] Work Phone: Absolute Neut # 6.6 10*3/uL 1.8 - 7.0 10*3/uL [facility] Work Phone: 222 Basophils/100 WBC (Bld) 1.1 % 0.0 - 2.0 % [facility] Work Phone: 222 Eosinophils (Bld) [#/Vol] 0.4 10*3/uL 0.0 - 0.5 10*3/uL [facility] Work Phone: 222 Eosinophils/100 WBC (Bld) 3.9 % 1.0 - 6.0 % [facility] Work Phone: 222 Granulocytes/100 WBC (Bld) 64.0 % 40.0 - 80.0 % [facility] Work Phone: 222 Hematocrit (Bld) [Volume fraction] 35.1 % Low 40.0 - 52.0 % [facility] Work Phone: 222 Hemoglobin (Bld) [Mass/Vol] 11.6 g/dL Low 13.0 - 18.0 g/dL [employer] Work Phone: 1) 222 Interpretation and review of laboratory results Abnormal [employer] Work Phone: 1) 222 Lymphocytes (Bld) [#/Vol] 2.6 10*3/uL 1.0 - 4.3 10*3/uL [facility] Work Phone: 1) 222 Lymphocytes/100 WBC (Bld) 25.0 % 20.0 - 40.0 % [employer] Work Phone: 1) 222 MCH (RBC) [Entitic mass] 28.4 pg 26.0 - 34.0 pg [employer] Work Phone: 1) 222 MCHC (RBC) [Mass/Vol] 33.1 % 32.0 - 36.0 % [employer] Phone: ) MCV (RBC) [Entitic vol] 85.9 fL 80.0 - 98.0 fL [employer] Phone: ) 222 Monocytes (Bld) [#/Vol] 0.6 10*3/uL 0.0 - 0.8 10*3/uL [employer] Work Phone: 1) 222 Monocytes/100 WBC (Bld) 6.0 % 2.0 - 10.0 % [employer] Work Phone: 1) 222 Platelet distribution width (Bld) [Ratio] 17.4 % High 11.5 - 14.5 % [employer] Phone: ) Platelet mean volume (Bld) [Entitic vol] 8.1 fL 7.4 - 12.4 fL [employer] Work Phone: ) Comment on above: MPV is a calculated measurement using platelet volume ratio. Platelets (Bld) [#/Vol] 450 10*3/uL High 140 - 440 10*3/uL [employer] Work Phone: 1) 222 RBC (Bld) [#/Vol] 4.08 10*6/uL Low 4.40 - 5.9 0 10*6/uL [employer] Work Phone: 1) 222 WBC (Bld) [#/Vol] 10.3 10*3/uL 3.6 - 10.7 10*3/uL [facility] Work Phone: Test Performed by [facility], [address] [place] [address] [facility] Work Phone: CEAon 10-23-2021 CEA 0.8 ng/mL 0.0 - 3.0 ng/mL [facility] Work Phone: Test Performed by [facility], [address] [place] [address] [facility] Work Phone: Carcinoembryonic Agon 2021 Carcinoembryonic Ag. 0.8 ng/mL Normal 0.0-3.0 [facility] Comment on above: Performed By: #### C A19O, LUPUS #### The performing lab is in the report. #### NSEO #### [facility] #### HEMDF, LDH3, BMP3, MG3, PT, CEA2 #### [facility] [address] [place] [address] #### B2GPM, B2GPA, B2GPG #### [address] Hemogram w/ Autodiffon 10-23 Abs Baso Cnt 0.1 10*3/uL Normal 0.0-0.2 [facility] Comment on above: Performed By: #### C A19O, LUPUS #### The performing lab is in the report. #### NSEO #### [facility] #### HEMDF, LDH3, BMP3, MG3, PT, CEA2 #### [facility] [address] [place] [address] #### B2GPM, B2GPA, B2GPG #### [address] Abs Neutrophile Cnt 6.6 10*3/uL Normal 1.8-7.0 [facility] Comment on above: Performed By: #### C A19O, LUPUS #### The performing lab is in the report. #### NSEO #### [facility] #### HEMDF, LDH3, BMP3, MG3, PT, CEA2 #### [facility] [address] [place] [address] #### B2GPM, B2GPA, B2GPG #### [address] [address] Basophils/100 WBC (Bld) 1.1 % Normal 0.0-2.0 [facility] Comment on above: Performed By: #### C A19O, LUPUS #### The performing lab is in the report. #### NSEO #### [facility] #### HEMDF, LDH3, BMP3, MG3, PT, CEA2 #### [address] [place], [place] #### B2GPM, B2GPA, B2GPG #### [address] [address] Eosinophils (Bld) [#/Vol] 0.4 10*3/uL Normal 0.0-0.5 [facility] Comment on above: Performed By: #### C A19O, LUPUS #### The performing lab is in the report. #### NSEO #### [facility] #### HEMDF, LDH3, BMP3, MG3, PT, CEA2 #### [address] [facility] [place] #### B2GPM, B2GPA, B2GPG #### [address] [address] Eosinophils/100 WBC (Bld) 3.9 % Normal 1.0-6.0 [facility] Comment on above: Performed By: #### C A19O, LUPUS #### The performing lab is in the report. #### NSEO #### [facility] #### HEMDF, LDH3, BMP3, MG3, PT, CEA2 #### [address] [place] [address] #### B2GPM, B2GPA, B2GPG #### [address] Erythrocyte distribution width (RBC) [Ratio] 17.4 % High 11.5-14.5 [facility] Comment on above: Performed By: #### C A19O, LUPUS #### The performing lab is in the report. #### NSEO #### [facility] #### HEMDF, LDH3, BMP3, MG3, PT, CEA2 #### [facility] [address] [place], [place] #### B2GPM, B2GPA, B2GPG #### [address] Granulocytes/100 WBC (Bld) 64.0 % Normal 40.0-80.0 [facility] Comment on above: Performed By: #### C A19O, LUPUS #### The performing lab is in the report. #### NSEO #### [facility] #### HEMDF, LDH3, BMP3, MG3, PT, CEA2 #### [facility] [address] [place], [place] #### B2GPM, B2GPA, B2GPG #### [address] Hematocrit (Bld) [Volume fraction] 35.1 % Low 40.0-52.0 [facility] Comment on above: Performed By: #### C A19O, LUPUS #### The performing lab is in the report. #### NSEO #### [facility] #### HEMDF, LDH3, BMP3, MG3, PT, CEA2 #### [facility] [address] [place] [address] #### B2GPM, B2GPA, B2GPG #### [address] Hemoglobin (Bld) [Mass/Vol] 11.6 g/dL Low 13.0-18.0 [facility] Comment on above: Performed By: #### C A19O, LUPUS #### The performing lab is in the report. #### NSEO #### [facility] #### HEMDF, LDH3, BMP3, MG3, PT, CEA2 #### [facility] [address] [place] [address] #### B2GPM, B2GPA, B2GPG #### [address] Lymphocytes (Bld) [#/Vol] 2.6 10*3/uL Normal 1.0-4.3 [facility] Comment on above: Performed By: #### C A19O, LUPUS #### The performing lab is in the report. #### NSEO #### [facility] #### HEMDF, LDH3, BMP3, MG3, PT, CEA2 #### [address] [place], [place] #### B2GPM, B2GPA, B2GPG #### [address] Lymphocytes/100 WBC (Bld) 25.0 % Normal 20.0-40.0 [facility] Comment on above: Performed By: #### C A19O, LUPUS #### The performing lab is in the report. #### NSEO #### [facility] #### HEMDF, LDH3, BMP3, MG3, PT, CEA2 #### [address] [facility] [place] #### B2GPM, B2GPA, B2GPG #### [address] MCH (RBC) [Entitic mass] 28.4 pg Normal 26.0-34.0 [facility] Comment on above: Performed By: #### C A19O, LUPUS #### The performing lab is in the report. #### NSEO #### [facility] #### HEMDF, LDH3, BMP3, MG3, PT, CEA2 #### [place] [address] [place] #### B2GPM, B2GPA, B2GPG #### [address] MCHC 33.1 % Normal 32.0-36.0 [facility] Comment on above: Performed By: #### C A19O, LUPUS #### The performing lab is in the report. #### NSEO #### [facility] #### HEMDF, LDH3, BMP3, MG3, PT, CEA2 #### [facility] [address] [place] #### B2GPM, B2GPA, B2GPG #### [address] MCV (RBC) [Entitic vol] 85.9 fL Normal 80.0-98.0 [facility] Comment on above: Performed By: #### C A19O, LUPUS #### The performing lab is in the report. #### NSEO #### [facility] #### HEMDF, LDH3, BMP3, MG3, PT, CEA2 #### [facility] [address] [place] #### B2GPM, B2GPA, B2GPG #### [address] Monocytes (Bld) [#/Vol] 0.6 10*3/uL Normal 0.0-0.8 [facility] Comment on above: Performed By: #### C A19O, LUPUS #### The performing lab is in the report. #### NSEO #### [facility] #### HEMDF, LDH3, BMP3, MG3, PT, CEA2 #### [facility] [address] [place] #### B2GPM, B2GPA, B2GPG #### [address] Monocytes/100 WBC (Bld) 6.0 % Normal 2.0-10.0 [facility] Comment on above: Performed By: #### C A19O, LUPUS #### The performing lab is in the report. #### NSEO #### [facility] #### HEMDF, LDH3, BMP3, MG3, PT, CEA2 #### [address] [place] [address] #### B2GPM, B2GPA, B2GPG #### [address] Platelet mean volume (Bld) [Entitic vol] 8.1 fL Normal 7.4-12.4 [facility] Comment on above: Result Comment: MPV is a calculated measurement using platelet volume ratio. Performed By: #### C A19O, LUPUS #### The performing lab is in the report. #### NSEO #### [facility] #### HEMDF, LDH3, BMP3, MG3, PT, CEA2 #### [address] [place], [place] #### B2GPM, B2GPA, B2GPG #### [address] Platelets (Bld) [#/Vol] 450 10*3/uL High 140-440 [facility] Comment on above: Performed By: #### C A19O, LUPUS #### The performing lab is in the report. #### NSEO #### [facility] #### HEMDF, LDH3, BMP3, MG3, PT, CEA2 #### [address] [place], [place] #### B2GPM, B2GPA, B2GPG #### [address] RBC (Bld) [#/Vol] 4.08 10*6/uL Low 4.40-5.90 [facility] Comment on above: Performed By: #### C A19O, LUPUS #### The performing lab is in the report. #### NSEO #### [facility] #### HEMDF, LDH3, BMP3, MG3, PT, CEA2 #### [facility] [address] [place] [address] #### B2GPM, B2GPA, B2GPG #### [address] WBC (Bld) [#/Vol] 10.3 10*3/uL Normal 3.6-10.7 [facility] Comment on above: Performed By: #### C A19O, LUPUS #### The performing lab is in the report. #### NSEO #### [facility] #### HEMDF, LDH3, BMP3, MG3, PT, CEA2 #### [facility] [address] [place] [address] #### B2GPM, B2GPA, B2GPG #### [address] LDHon 10-23-2021 LDH 136 U/L Normal 120-246 [facility] Comment on above: Performed By: #### C A19O, LUPUS #### The performing lab is in the report. #### NSEO #### [facility] #### HEMDF, LDH3, BMP3, MG3, PT, CEA2 #### [place] [address] [place] [address] #### B2GPM, B2GPA, B2GPG #### [address] Lactate Dehydrogenaseon 06- LD 136 U/L 120 - 246 U/L [facility] Work Phone: MRI ABDOMEN WO CONTRASTon Patient Name: ANDREW SIFUENTES Magnetic Resonance Imaging ACCESSION EXAM DATE/TIME PROCEDURE ORDERING PROVIDER [id number] 10/23/2021 11:08 EDT MRI Abdomen w/o Contrast WING SRIVASTAVA CPT code 84454 Reason For Exam (MRI Abdomen w/o Contrast) [...] Imaging ACCESSION EXAM DATE/TIME PROCEDURE ORDERING PROVIDER [id number] 10/23/2021 11:08 EDT MRI Abdomen w/o Contrast WING SRIVASTAVA CPT code 17506 Reason For Exam (MRI Abdomen w/o Contrast) [...] VLADIMIR Transcribed Date and Time: 10/23/2021 4:36 [facility] Work Phone: MRI ABDOMEN WO CONTRASTOrder ed By: Unknown Result on 10-23-2021 [facility] MRI Abdomen w/o Contraston 0 10-23-2021 MRI Abdomen w/o Contrast Patient Name: ANDREW SIFUENTES Magnetic Resonance Imaging ACCESSION EXAM DATE/TIME PROCEDURE ORDERING PROVIDER [id number] 10/23/2021 11:08 EDT MRI Abdomen w/o Contrast WING SRIVASTAVA CPT code 95540 Reason For Exam (MRI Abdomen w/o Contrast) [...] Transcribed Date and Time: 10/23/2021 4:36 Normal [facility] Magnesiumon 10-23-2021 Magnesium [Mass/Vol] 2.1 mg/dL Normal 1.6-2.3 [facility] Comment on above: Performed By: #### C A19O, LUPUS #### The performing lab is in the report. #### NSEO #### [facility] #### HEMDF, LDH3, BMP3, MG3, PT, CEA2 #### [place] [address] [place] [address] #### B2GPM, B2GPA, B2GPG #### [address] Magnesium [Mass/Vol] 2.1 mg/dL 1.6 - 2 .3 mg/dL [facility] Work Phone: No Panel Informationon 10-23 Test Performed by [place] [address] LAB [facility] Work Phone: Prothrombin Timeon INR 1.1 Normal 0.9-1.1 [facility] Comment on above: Result Comment: Harry mmended [...] prevent Myocardial Infarction Performed By: #### C Mary LouO LUPUS #### The performing lab is in the report. #### NSEO #### [facility] #### HEMDF, LDH3, BMP3, MG3, PT, CEA2 #### [address] [place] [id number] #### B2GPM, B2GPA, B2GPG #### [address] PT Coag (PPP) [Time] 12.2 s High 9.0-12.0 [facility] Comment on above: Result Comment: . Performed By: #### C A19O, LUPUS #### The performing lab is in the report. #### NSEO #### [facility] #### HEMDF, LDH3, BMP3, MG3, PT, CEA2 #### [facility] [address] [place] [address] #### B2GPM, B2GPA, B2GPG #### [facility] [address] [place] [address] Protime-INRon 10-23-2021 INR Coag (Bld) [Relative time] 1.1 {INR} [facility] Work Phone: Comment on above: Recommended [...] Interpretation and review of laboratory results Abnormal [facility] Work Phone: PT Coag (PPP) [Time] 12.2 s High 9.0 - 12.0 s [facility] Work Phone: Comment on above: . Test Performed by [facility], [address] [place], [place] [address] [facility] LAB [facility] Work Phone: Basic Metabolic Panelon 10-05 Calcium [Mass/Vol] 8.9 mg/dL Normal 8.4-10.4 [facility] Comment on above: Performed By: #### P T #### [facility] [address] [place] [address] Glucose [Mass/Vol] 110 mg/dL High 70-100 [facility] Comment on above: Performed By: #### P T #### [facility] [address] [place] [address] Urea nitrogen [Mass/Vol] 14 mg/dL Normal 7-17 [facility] Comment on above: Performed By: #### P T #### [facility] [address] [place] [address] Anion gap [Moles/Vol] 7 mmol/L Normal 3-13 [facility] Comment on above: Performed By: #### P T #### [facility] [address] [place] [address] CO2 [Moles/Vol] 26 mmol/L Normal 22-30 [facility] Comment on above: Performed By: #### P T #### [facility] [address] [place] [address] Creatinine [Mass/Vol] 0.71 mg/dL Normal 0.52-1.25 [facility] Comment on above: Performed By: #### P T #### [facility] [address] [place] [address] eGFR OTHER > 90.0 Normal >60 [facility] Comment on above: Result Comment: KDIG O [...] secretion. Performed By: #### P T #### [facility] [address] [place] [address] GFR/1.73 sq M.predicted among blacks MDRD (S/P/Bld) [Vol rate/Area] mL/min/{1.73_m2} Normal >60 [facility] Comment on above: Performed By: #### P T #### [facility] [address] [place] [address] Potassium [Moles/Vol] 3.8 mmol/L Normal 3.5-5.1 [facility] Comment on above: Performed By: #### P T #### [facility] [address] [place] [address] Chloride [Moles/Vol] 106 mmol/L Normal 98-107 [facility] Comment on above: Performed By: #### P T #### [facility] [address] [place] [address] Sodium [Moles/Vol] 139 mmol/L Normal 135-145 [facility] Comment on above: Performed By: #### P T #### [facility] [address] [place] [address] Anion gap [Moles/Vol] 7 mmol/L 3 - 13 mmol/L [facility] Calcium [Mass/Vol] 8.9 mg/dL 8.4 - 10. 4 mg/dL [facility] Chloride [Moles/Vol] 106 mmol/L 98 - 10 7 mmol/L [facility] CO2 [Moles/Vol] 26 mmol/L 22 - 30 mmol/L [facility] Creatinine [Mass/Vol] 0.71 mg/dL 0.52 - 1.25 mg/dL [facility] EGFR IF NonAfrican Ukrainian >90.0 >60 mL/min [facility] Comment on above: KDIGO guidelines pro [...] 110 mg/dL High 70 - 100 mg/dL [facility] Interpretation and review of laboratory results [...] vol] 7.6 fL 7.4 - 12.4 fL [facility] Comment on above: MPV is a calculated measurement using platelet volume ratio. Platelets (Bld) [#/Vol] 369 10*3/uL 140 - 440 10*3/uL [facility] RBC (Bld) [#/Vol] 3.87 10*6/uL Low 4.40 - 5.9 0 10*6/uL [facility] WBC (Bld) [#/Vol] 9.4 10*3/uL 3.6 - 10.7 10*3/uL [facility] Test Performed by [facility], [address] [place], [place], [place] [id number] [place] [address] [facility]en Pelvis Wo Contras ton 10-22-2021 Patient Name: ANDREW SIFUENTES Computed Tomography ACCESSION EXAM DATE/TIME PROCEDURE ORDERING PROVIDER [id number] 10/22/2021 13:[address] Abdomen/Pelvis (No SRIVASTAVA, WING PO, No IV) CPT code 42237 Reason For Exam (CT Abdomen/Pelvis (No PO, [...] HARLAN Transcribed Date and Time: 10/22/2021 2:37 Humphrey Urban MD - 10/22/2021 Patient Name: ANDREW SIFUENTES Computed Tomography ACCESSION EXAM DATE/TIME PROCEDURE ORDERING PROVIDER [id number] 10/22/2021 13:[address] Abdomen/Pelvis (No SRIVASTAVA, WING PO, No IV) CPT code 00127 Reason For Exam (CT Abdomen/Pelvis (No PO, [...] Abdomen/Pelvis w/o Contrast [facility]: [id number] ACCESSION EXAM DATE/TIME PROCEDURE ORDERING PROVIDER [id number] 10/22/2021 13:[address] Abdomen/Pelvis (No SRIVASTAVA, WING PO, No IV) CPT code 51546 Reason For Exam (CT Abdomen/Pelvis (No PO, [...] Transcribed Date and Time: 10/22/2021 2:37 Normal [facility] Hemogram w/ Autodiffon 10-22 Abs Baso Cnt 0.1 10*3/uL Normal 0.0-0.2 [facility] Comment on above: Performed By: #### P T #### [facility] [address] [place] [address] Abs Neutrophile Cnt 6.0 10*3/uL Normal 1.8-7.0 [facility] Comment on above: Performed By: #### P T #### [facility] [address] [place] [address] Basophils/100 WBC (Bld) 1.0 % Normal 0.0-2.0 [facility] Comment on above: Performed By: #### P T #### [facility] [address] [place] [address] Eosinophils (Bld) [#/Vol] 0.3 10*3/uL Normal 0.0-0.5 [facility] Comment on above: Performed By: #### P T #### [facility] [address] [place] [address] Eosinophils/100 WBC (Bld) 3.0 % Normal 1.0-6.0 [facility] Comment on above: Performed By: #### P T #### [facility] [address] [place] [address] Erythrocyte distribution width (RBC) [Ratio] 17.1 % High 11.5-14.5 [facility] Comment on above: Performed By: #### P T #### [facility] [address] [place] [address] Granulocytes/100 WBC (Bld) 64.1 % Normal 40.0-80.0 [facility] Comment on above: Performed By: #### P T #### [facility] [address] [place] [address] Hematocrit (Bld) [Volume fraction] 33.4 % Low 40.0-52.0 [facility] Comment on above: Performed By: #### P T #### [facility] [address] [place] [address] Hemoglobin (Bld) [Mass/Vol] 10.9 g/dL Low 13.0-18.0 [facility] Comment on above: Performed By: #### P T #### [facility] [address] [place] [address] Lymphocytes (Bld) [#/Vol] 2.5 10*3/uL Normal 1.0-4.3 [facility] Comment on above: Performed By: #### P T #### [facility] [address] [place] [address] Lymphocytes/100 WBC (Bld) 26.3 % Normal 20.0-40.0 [facility] Comment on above: Performed By: #### P T #### [facility] [address] [place] [address] MCH (RBC) [Entitic mass] 28.2 pg Normal 26.0-34.0 [facility] Comment on above: Performed By: #### P T #### [facility] [address] [place] [address] MCHC 32.7 % Normal 32.0-36.0 [facility] Comment on above: Performed By: #### P T #### [facility] [address] [place] [address] MCV (RBC) [Entitic vol] 86.3 fL Normal 80.0-98.0 [facility] Comment on above: Performed By: #### P T #### [facility] [address] [place] [address] Monocytes (Bld) [#/Vol] 0.5 10*3/uL Normal 0.0-0.8 [facility] Comment on above: Performed By: #### P T #### [facility] [address] [place] [address] Monocytes/100 WBC (Bld) 5.6 % Normal 2.0-10.0 [facility] Comment on above: Performed By: #### P T #### [facility] [address] [place] [address] Platelet mean volume (Bld) [Entitic vol] 7.6 fL Normal 7.4-12.4 [facility] Comment on above: Result Comment: MPV is a calculated measurement using platelet volume ratio. Performed By: #### P T #### [facility] [address] [place] [address] Platelets (Bld) [#/Vol] 369 10*3/uL Normal 140-440 [facility] Comment on above: Performed By: #### P T #### [facility] [address] [place] [address] RBC (Bld) [#/Vol] 3.87 10*6/uL Low 4.40-5.90 [facility] Comment on above: Performed By: #### P T #### [facility] [address] [place] [address] WBC (Bld) [#/Vol] 9.4 10*3/uL Normal 3.6-10.7 [facility] Comment on above: Performed By: #### P T #### [facility] [address] [place] [address] Magnesiumon 10-22-2021 Magnesium [Mass/Vol] 2.0 mg/dL Normal 1.6-2.3 [facility] Comment on above: Performed By: #### P T #### [facility] [address] [place] [address] Magnesium [Mass/Vol] 2.0 mg/dL 1.6 - 2 .3 mg/dL [facility] No Panel Informationon 10-22 Radiology Study observation (narrative) [facility] Work Phone: Test Performed by [facility], [address] [place], [place] [address] [facility] LAB [facility] Prothrombin Timeon 2 INR 1.1 Normal 0.9-1.1 [facility] Comment on above: Result Comment: Harry mmended [...] HEMDF, LDH3, BMP3, MG3, PT, CEA2 #### [facility] [address] [place] [address] #### B2GPM, B2GPA, B2GPG #### [address] PT Coag (PPP) [Time] 11.8 s Normal 9.0-12.0 [facility] Comment on above: Result Comment: . Performed By: #### C A19O, LUPUS #### The performing lab is in the report. #### NSEO #### [facility] #### HEMDF, LDH3, BMP3, MG3, PT, CEA2 #### [facility] [address] [place] [address] #### B2GPM, B2GPA, B2GPG #### [address] [address] Protime-INRon 10-22-2021 INR Coag (Bld) [Relative time] 1.1 {INR} [employer] Work Phone: Comment on above: Recommended Anticoag [...] [Time] 11.8 s 9.0 - 12.0 s [employer] Work Phone: Comment on above: . Test Performed by [facility], [address] [place], [place] [id number] [place] [address] LAB [facility] Work Phone: VL Ankle Art Brachial Indice s Extremity Bilateralon 10-22-2021 [facility] Ankle Brachial Index Report Patient DO MariaB: 1950 Study 10/21/2021 Name: Andrew Gonzalez (71yrs) Date: Age: 71 Account: [id number] Gender: M Loc: 444W BP: Ordering Physician: Shruthi Malik Car Mover: Rody Cross RDMS, RVT Interpreting Physician: Carina Call Location: [facility] Indications: Foot wounds. Originally ordered as a full PVR. Ordering [employer] APPLICATION DEVELOPER had to modify the order to ABIs [...] supine position. Images were obtained using a [employer] vascular ultrasound machine. Arterial pressure indices: + [...] electronically signed by Carina Call 10/22/2021 13:21 [facility] Carina Call MD - 10/22/2021 [facility] Ankle Brachial Index Report Patient DO MariaB: 1950 Study 10/21/2021 Name: Andrew Gonzalez (71yrs) Date: Age: 71 Account: [id number] Gender: M Loc: 444W BP: Ordering Physician: Shruthi Malik Car Mover: Rody Cross RDMS, RVT Interpreting Physician: Carina Call Location: [facility] Indications: Foot wounds. Originally ordered as a full PVR. Ordering [employer] APPLICATION DEVELOPER had to modify the order to ABIs [...] supine position. Images were obtained using a [employer] vascular ultrasound machine. Arterial pressure indices: + [...] electronically signed by Carina Call 10/22/2021 13:21 [facility] Work Phone: [facility] Work Phone: Basic Metabolic Panelon 10-05 Calcium [Mass/Vol] 9.1 mg/dL Normal 8.4-10.4 [facility] Comment on above: Performed By: #### C OVAG #### [facility] [address] [place] [address] Anion gap [Moles/Vol] 6 mmol/L Normal 3-13 [facility] Comment on above: Performed By: #### C OVAG #### [facility] [address] [place] [address] CO2 [Moles/Vol] 29 mmol/L Normal 22-30 [facility] Comment on above: Performed By: #### C OVAG #### [facility] [address] [place] [address] Creatinine [Mass/Vol] 0.90 mg/dL Normal 0.52-1.25 [facility] Comment on above: Performed By: #### C OVAG #### [facility] [address] [place] [address] GFR/1.73 sq M.predicted among blacks MDRD (S/P/Bld) [Vol rate/Area] mL/min/{1.73_m2} Normal >60 [facility] Comment on above: Performed By: #### C OVAG #### [facility] [address] [place] [address] GFR/1.73 sq M.predicted among non-blacks MDRD (S/P/Bld) [Vol rate/Area] 86.6 mL/min/{1.73_m2} Normal >60 [facility] Comment on above: Result Comment: KDIG O [...] secretion. Performed By: #### C OVAG #### [facility] [address] [place] [address] Glucose [Mass/Vol] 106 mg/dL High 70-100 [facility] Comment on above: Performed By: #### C OVAG #### [facility] [address] [place] [address] Urea nitrogen [Mass/Vol] 18 mg/dL High 7-17 [facility] Comment on above: Performed By: #### C OVAG #### [facility] [address] [place] [address] Chloride [Moles/Vol] 105 mmol/L Normal 98-107 [facility] Comment on above: Performed By: #### C OVAG #### [facility] [address] [place] [address] Potassium [Moles/Vol] 4.3 mmol/L Normal 3.5-5.1 [facility] Comment on above: Performed By: #### C OVAG #### [facility] [address] [place] [address] Sodium [Moles/Vol] 139 mmol/L Normal 135-145 [facility] Comment on above: Performed By: #### C OVAG #### [facility] [address] [place] [address] Anion gap [Moles/Vol] 6 mmol/L 3 - 13 mmol/L [facility] Calcium [Mass/Vol] 9.1 mg/dL 8.4 - 10. 4 mg/dL [facility] Chloride [Moles/Vol] 105 mmol/L 98 - 10 7 mmol/L [facility] CO2 [Moles/Vol] 29 mmol/L 22 - 30 mmol/L [facility] Creatinine [Mass/Vol] 0.9 mg/dL 0.52 - 1.25 mg/dL [facility] EGFR IF NonAfrican Ukrainian 86.6 mL/min >60 [facility] Comment on above: [...] 106 mg/dL High 70 - 100 mg/dL [facility] Interpretation and review of laboratory results Abnormal [facility] Potassium [Moles/Vol] 4.3 mmol/L 3.5 - 5.1 mmol/L [facility] Sodium [Moles/Vol] 139 mmol/L 135 - 145 mmol/L [facility] Urea nitrogen (BldV) [Mass/Vol] 18 mg/dL High 7 - 17 mg/dL [facility] Test Performed by [facility], [address] [place], [place], [place] [address] [facility] C-Reactive Proteinon 022 CRP [Mass/Vol] 33.5 mg/L High 0.0-9.9 [facility] Comment on above: Result Comment: . Performed By: #### P T #### [facility] [address] [place] [address] CRP [Mass/Vol] 33.5 mg/L High 0.0 - 9.9 mg/L [facility] Comment on above: . Interpretation and review of laboratory results Abnormal [facility] Test Performed by [facility], [address] [place], [place], [place] [id number] [place] [address] LAB [facility] CR Calcaneus 2+ Views Lefton 10-21-2021 CR Calcaneus 2+ Views Left Patient Name: ANDREW SIFUENTES Diagnostic Radiology ACCESSION EXAM DATE/TIME PROCEDURE ORDERING PROVIDER [id number] 10/21/2021 15:30 EDT CR Calcaneus 2+ Views [id number] -SHRUTHI MALIK Left CPT code 14356 Reason For Exam (CR Calcaneus 2+ Views [...] Transcribed Date and Time: 10/21/2021 4:33 Normal [facility] CR Chest 1 View Frontalon CR Chest 1 View Frontal Patient Name: ANDREW SIFUENTES Diagnostic Radiology ACCESSION EXAM DATE/TIME PROCEDURE ORDERING PROVIDER [id number] 10/21/2021 08:16 EDT CR Chest 1 View Frontal [id number] MAY BOGGS CPT code 09458 Reason For Exam (CR Chest 1 View [...] on Final Dictating Physician: MD KHARI, VENUS ARMOS Signed Date and Time: 10/21/2021 8:32 am Signed by: MD LOYD WASSIM OSAMA Transcribed Date and Time: 10/21/2021 8:33 Normal [facility] D-Dimer, Innovanceon 022 D-Dimer, Innovance 1.51 mg/L High <0.19-0.50 [facility] Comment on above: Result Comment: Inno saba D-Dimer values of <0.50 mg/L FEU can be used in combination with a pre-test probability model (e.g. Well's) to exclude pulmonary embolism (PE) disease, as well as an aid in the diagnosis of deep vein thrombosis (DVT). Performed By: #### P T #### [facility] [address] [place] [address] D-Dimer, Quantitativeon 10-05 D-Dimer, Quant 1.51 mg/L High <0.19 - 0.50 [facility] Comment on above: Innovance D-Dimer va lues of <0.50 mg/L FEU can be used in combination with a pre-test probability model (e.g. Well's) to exclude pulmonary embolism (PE) disease, as well as an aid in the diagnosis of deep vein thrombosis (DVT). Interpretation and review of laboratory results Abnormal [facility] Test Performed by [facility], [address] [place], [place], [place] [address] [facility] LAB [facility] ED Provider Noteon 2 ED Provider Note [facility] EMERGENCY DEPARTMENT ENCOUNTER Pt Name: Andrew [...] (HCC) ? Kidney stone ? Neuropathy ? TRACK VEHICLE REPAIRER (ventriculoperitoneal) shunt status SURGICAL HISTORY Past Surgical [...] and Family: Not on file ? Attends Sabianist Services: Not on file ? Active Member [...] 10/21/21 0049 10/21/21 0049 10/21/21 0057 10/21/21 005 (!) 133/91 97.7 ?F (36.5 ?C) Tympanic [...] LUNGS: Respirations (more content not included)... Normal [facility] Hemogramon 10-21-2021 Erythrocyte distribution width (RBC) [Ratio] 17.3 % High 11.5-14.5 [facility] Comment on above: Performed By: #### C OVAG #### [facility] [address] [place] [address] Hematocrit (Bld) [Volume fraction] 33.6 % Low 40.0-52.0 [facility] Comment on above: Performed By: #### C OVAG #### [facility] [address] [facility] [place] [address] Hemoglobin (Bld) [Mass/Vol] 10.9 g/dL Low 13.0-18.0 [facility] Comment on above: Performed By: #### C OVAG #### [facility] [address] [facility] [place] [address] MCH (RBC) [Entitic mass] 27.8 pg Normal 26.0-34.0 [facility] Comment on above: Performed By: #### C OVAG #### [facility] [address] [place] [address] MCHC 32.5 % Normal 32.0-36.0 [facility] Comment on above: Performed By: #### C OVAG #### [facility] [address] [place] [address] MCV (RBC) [Entitic vol] 85.6 fL Normal 80.0-98.0 [facility] Comment on above: Performed By: #### C OVAG #### [facility] [address] [place] [address] Platelet mean volume (Bld) [Entitic vol] 7.7 fL Normal 7.4-12.4 [facility] Comment on above: Result Comment: MPV is a calculated measurement using platelet volume ratio. Performed By: #### C OVAG #### [facility] [address] [place] [address] Platelets (Bld) [#/Vol] 404 10*3/uL Normal 140-440 [facility] Comment on above: Performed By: #### C OVAG #### [facility] [address] [place] [address] RBC (Bld) [#/Vol] 3.93 10*6/uL Low 4.40-5.90 [facility] Comment on above: Performed By: #### C OVAG #### [facility] [address] [place] [address] WBC (Bld) [#/Vol] 11.6 10*3/uL High 3.6-10.7 [facility] Comment on above: Performed By: #### C OVAG #### [facility] [address] [place] [address] Hemogram (CBC)on 10-21-2021 Hematocrit (Bld) [Volume fraction] 33.6 % Low 40.0 - 52.0 % [facility] Hemoglobin (Bld) [Mass/Vol] 10.9 g/dL Low 13.0 - 18.0 g/dL [facility] Interpretation and review of laboratory results [...] vol] 7.7 fL 7.4 - 12.4 fL [facility] Comment on above: MPV is a calculated measurement using platelet volume ratio. Platelets (Bld) [#/Vol] 404 10*3/uL 140 - 440 10*3/uL [facility] RBC (Bld) [#/Vol] 3.93 10*6/uL Low 4.40 - 5.9 0 10*6/uL [facility] WBC (Bld) [#/Vol] 11.6 10*3/uL High 3.6 - 10.7 10*3/uL [facility] Test Performed by [facility], [address] [place], [place] [id number] [place] [address] LAB [facility] NM LUNG VENT/PERFUSION (VQ)o n 10-21-2021 Patient Name: ANDREW LARSEN Nuclear Medicine ACCESSION EXAM DATE/TIME PROCEDURE ORDERING PROVIDER [id number] 10/21/2021 07:55 EDT NM Pulmonary Perfusion [id number] MAY BOGGS w/ Vent Aerosol CPT code 86395 A9567 Reason For Exam (NM Pulmonary Perfusion [...] JOHN Transcribed Date and Time: 10/21/2021 8:49 [facility] RAD Henry Harvey MD - 10/21/2021 Patient Name: ANDREW SIFUENTES Nuclear Medicine ACCESSION EXAM DATE/TIME PROCEDURE ORDERING PROVIDER [id number] 10/21/2021 07:55 EDT NM Pulmonary Perfusion [id number] FOSTER w/ Vent Aerosol CPT code 88914 A9567 Reason For Exam (NM Pulmonary Perfusion [...] JOHN Transcribed Date and Time: 10/21/2021 8:49 [facility] Work Phone: NM LUNG VENT/PERFUSION (VQ)O rdered By: Henry Harvey on 10-21-2021 [facility] Work Phone: NM Pulmonary Perfusion w/ Ve nt Aerosol or Gason 10-21-2021 NM Pulmonary Perfusion w/ Vent Aerosol or Gas Patient Name: ANDREW SIFUENTES Nuclear Medicine ACCESSION EXAM DATE/TIME PROCEDURE ORDERING PROVIDER [id number] 10/21/2021 07:55 EDT NM Pulmonary Perfusion [id number] FOSTER w/ Vent Aerosol CPT code 90476 A9567 Reason For Exam (NM Pulmonary Perfusion [...] Transcribed Date and Time: 10/21/2021 8:49 Normal [facility] No Panel Informationon 10-21 Radiology Study observation (narrative) [facility] Work Phone: Prothrombin Timeon INR 1.1 Normal 0.9-1.1 [facility] Comment on above: Result Comment: Harry mmended [...] Infarction Performed By: #### C OVAG #### [facility] [address] [place] [address] PT Coag (PPP) [Time] 11.5 s Normal 9.0-12.0 [facility] Comment on above: Result Comment: . Performed By: #### C OVAG #### [facility] [address] [place] [address] Protime-INRon 10-21-2021 INR Coag (Bld) [Relative time] 1.1 {INR} [facility] Comment on above: Recommended Anticoag ulant [...] [Time] 11.5 s 9.0 - 12.0 s [facility] Comment on above: . Test Performed by [facility], [address] LAB [facility] R[facility] Count(%)on 10-21-2021 Retic Count(%) 1.6 Normal [facility] Comment on above: Result Comment: Newb orn < 5% Adults 0.5 - 1.5% Performed By: #### P T #### [facility] [address] [place] [address] Reticulocyteson 10-21-[address] Pct 1.6 [facility] Comment on above: < 5% Adults 0.5 - 1.5% Test Performed by [facility], [address] LAB [facility] Sed Rateon 10-21-2021 Sed Rate 63 mm/h High 0-10 [facility] Comment on above: Performed By: #### P T #### [facility] [address] [place] [address] Sedimentation Rateon 022 Interpretation and review of laboratory results Abnormal [facility] Sed Rate 63 mm/h High 0 - 10 mm/h [facility] Test Performed by [facility], [address] [place] [address] Str[address] LAB [facility] VL CARMELLA Upr/L Extremity Art 1 -2 Levelson 10-21-2021 VL CARMELLA Upr/L Extremity Art 1-2 Levels Patient Name: ANDREW SIFUENTES Ultrasound ACCESSION EXAM DATE/TIME PROCEDURE ORDERING PROVIDER [id number] 10/21/2021 16:12 EDT VL Upr/L Extremity Art [id number] -SHRUTHI MALIK 1-2 Levels CPT code 55871 Reason For Exam (VL Upr/L Extremity Art 1-2 Levels) both lower legs CARMELLA for both feet wounds. Report [facility] Ankle Brachial Index Report Patient Maria, : 1950 Study 10/21/2021 Name: Andrew Gonzalez (71yrs) Date: Age: 71 Account: [id number] Gender: M Loc: 444W BP: Ordering Physician: Shruthi Malik Car Mover: Rody Cross RDMS, RVT Interpreting Physician: Carina Call Location: [facility] Indications: Foot wounds. Originally ordered as a full PVR. Ordering [employer] APPLICATION DEVELOPER had to modify the order to ABIs [...] supine position. Images were obtained using a [employer] vascular ultrasound machine. Arterial pressure indices: + [...] CARINA HENNESSY Cardiovascular ACCESSION EXAM DATE/TIME PROCEDURE [id number] 10/21/2021 16:12 EDT VL Upr/L Extremity Art 1-2 Levels CPT code 12250 Reason For Exam (VL Upr/L Extremity Art 1-2 Levels) both lower legs CARMELLA for both feet wounds. Report [facility] Ankle Brachial Index Report Patient DO MariaB: 1950 Study 10/21/2021 Name: Andrew Gonzalez (71yrs) Date: Age: 71 Account: [id number] Cardiovascular Report Gender: M Loc: 444W BP: Ordering Physician: Shruthi Malik Car Mover: Rody Cross RDMS RVJamison Interpreting Physician: Carina Call Location: [facility] Indications: Foot wounds. Originally ordered as a full PVR. Ordering [employer] APPLICATION DEVELOPER had to modify the order to ABIs [...] in th (more content not included)... Normal [facility] VL LOWER EXTREMITY BILATERAL VENOUS DUPLEXon 10-21-2021 [facility] Lower Extremity Venous Duplex Report Patient DO MariaB: 1950 Study 10/21/2021 Name: Andrew Gonzalez (71yrs) Date: Age: 71 Account: [id number] Gender: M Loc: 444 BP: Ordering Physician: May Cash Car Mover: Rody Cross RDMS, RVT Interpreting Physician: Carina Call Location: [facility] Indications: Bilateral lower leg edema. CRITICAL RESULTS: [...] supine position. Images were obtained using a [employer] vascular ultrasound machine. Venous flow and imaging: [...] +-------- --------+ + (more content not included)... [facility] Carina Call MD - 10/21/2021 [facility] Lower Extremity Venous Duplex Report Patient DO MariaB: 1950 Study 10/21/2021 Name: Andrew Gonzalez (71yrs) Date: Age: 71 Account: [id number] Gender: M Loc: 444 BP: Ordering Physician: May Cash Car Mover: Rody Cross RDMS, RVT Interpreting Physician: Carina Call Location: [facility] Indications: Bilateral lower leg edema. CRITICAL RESULTS: [...] supine position. Images were obtained using a [employer] vascular ultrasound machine. Venous flow and imaging: [...] + + +----- (more content not included)... [employer] Work Phone: VL LOWER EXTREMITY BILATERAL VENOUS DUPLEXOrdered By: Carina Call on 10-21-2021 [employer] Phone: VL Venous Duplex US Lower Ex t Bilateralon 10-21-2021 VL Venous Duplex US Lower Ext Bilateral Patient Name: ANDREW SIFUENTES Ultrasound ACCESSION EXAM DATE/TIME PROCEDURE ORDERING PROVIDER [id number] 10/21/2021 09:53 EDT VL Venous Duplex US [id number] -MAY CASH Lower Ext Bilateral CPT code 77892 Reason For Exam (VL Venous Duplex US Lower Ext Bilateral) bilateral sqwelling redness Report [facility] Lower Extremity Venous Duplex Report Patient DO MariaB: 1950 Study 10/21/2021 Name: Andrew Gonzalez (71yrs) Date: Age: 71 Account: [id number] Gender: M Loc: 444 BP: Ordering Physician: May Cash Car Mover: Rody Cross RDMS, RVT Interpreting Physician: Carina Call Location: [facility] Indications: Bilateral lower leg edema. CRITICAL RESULTS: [...] supine position. Images were obtained using a [employer] vascular ultrasound machine. Venous flow and imaging: [...] + + (more content not included)... Normal [employer] XR CALCANEUS LEFT (MIN 2 VIE WS)on 10-21-2021 Patient Name: ANDREW SIFUENTES Diagnostic Radiology ACCESSION EXAM DATE/TIME PROCEDURE ORDERING PROVIDER [id number] 10/21/2021 15:30 EDT CR Calcaneus 2+ Views [id number] -SHRUTHI MALIK Left CPT code 29005 Reason For Exam (CR Calcaneus 2+ Views [...] MD - 10/21/2021 [facility]: [id number] Radiology ACCESSION EXAM DATE/TIME PROCEDURE ORDERING PROVIDER [id number] 10/21/2021 15:30 EDT CR Calcaneus 2+ Views [id number] -SHRUTHI MALIK Left CPT code 18982 Reason For Exam (CR Calcaneus 2+ Views [...] 1 VWon 10-21-2021 Patient Name: [id number] Diagnostic Radiology ACCESSION EXAM DATE/TIME PROCEDURE ORDERING PROVIDER [id number] 10/21/2021 08:16 EDT CR Chest 1 View Frontal [id number] MAY BOGGS CPT code 99742 Reason For Exam (CR Chest 1 View [...] Radiology ACCESSION EXAM DATE/TIME PROCEDURE ORDERING PROVIDER [id number] 10/21/2021 08:16 EDT CR Chest 1 View Frontal [id number] LilliSHAILESH MAY CPT code 85261 Reason For Exam (CR Chest 1 View [...] OSAMA Transcribed Date and Time: 10/21/2021 8:33 [facility] Work Phone: XR Chest 1 VWOrdered By: Natalie Loyd on 10-21-2021 [facility] Work Phone: Basophil percentageon 2021 Chloride [Moles/Vol] 108 mmol/L 98-[address] [facility] Work Phone: Glucose [Mass/Vol] 93 mg/dL 74-106 [place] [facility] Work Phone: Potassium [Moles/Vol] 3.9 mmol/L 3.5-5.1 [address] [facility] Work Phone: Sodium [Moles/Vol] 140 mmol/L 136-145 [facility] Work Phone: WBC (Bld) [#/Vol] 8.7 10*3/uL 4.4-11.0 [facility] Work Phone: Blood erythrocytes count (nu mber/volume)on 10-20-2021 RBC (Bld) [#/Vol] 3.63 10*6/uL 4.6-6.2 [facility] Work Phone: Blood hemoglobin measurement (mass/volume)on 10-20-2021 Hemoglobin (Bld) [Mass/Vol] 10.1 g/dL 13.0-16.5 [facility] Work Phone: Blood platelet mean volumeon 10-20-2021 Platelet mean volume (Bld) [Entitic vol] 9.8 fL 6.2-12.0 [facility] Work Phone: Determination of erythrocyte mean corpuscular volume (MCV)on 10-20-2021 MCV (RBC) [Entitic vol] 90.1 fL 80-94 [facility] Work Phone: Hematocrit Auto (Bld) [Volum e fraction]on 10-20-2021 Hematocrit (Bld) [Volume fraction] 32.7 % 40-54 [facility] Work Phone: Laboratory - Chemistry and C hemistry - challengeon 10-20-2021 CO2 [Moles/Vol] 25.0 mmol/L 21.0-32.0 [facility] Work Phone: Urea nitrogen/Creatinine [Mass ratio] 17.4 mg/mg 10-20 [facility] Work Phone: Laboratory - Hematology and Cell countson 10-20-2021 Erythrocyte distribution width (RBC) [Entitic vol] 52.1 fL 35.1-43.9 [facility] Work Phone: Erythrocyte distribution width (RBC) [Ratio] 15.6 % 11.6-14.6 [facility] Work Phone: MCH (RBC) [Entitic mass] 27.8 pg 27.0-32.0 [facility] Work Phone: MCHC Auto (RBC) [Mass/Vol]on 10-20-2021 MCHC (RBC) [Mass/Vol] 30.9 g/dL 32-36 [facility] Work Phone: No Panel Informationon 10-20 Estimated GFR (MDRD) Amer 133 mL/min >60 [facility] Work Phone: Comment on above: GFR Calc Estimated GFR (MDRD) Non-Af Amer 110 mL/min >60 [facility] Work Phone: Comment on above: Non- GFR Calc Platelets bldon 10-20-2021 Platelets (Bld) [#/Vol] 404 10*3/uL 150-450 [facility] Work Phone: Serum or plasma calcium oral urement (mass/volume)on 10-20-2021 Calcium [Mass/Vol] 9.1 mg/dL 8.5-10.1 [facility] Work Phone: Serum or plasma creatinine m easurement (mass/volume)on 10-20-2021 Creatinine [Mass/Vol] 0.75 mg/dL 0.70-1.30 [facility] Work Phone: Comment on above: The validity of the calculated GFR & GFRAA in patients over 70 years has not been determined. Clinical correlation is essential. Serum or plasma urea nitroge n measurement (mass/volume)on 10-20-2021 Urea nitrogen [Mass/Vol] 13 mg/dL 7-18 [facility] Work Phone: Thin prep Papanicolaou smear with manual screeningon 10-20-2021 Thin prep Papanicolaou smear with manual screening 7 5-15 [facility] Work Phone: CNPNon 10-17-2021 CNPN Normal [facility] Absolute lymphocyte counton 09-19-2021 Lymphocytes Auto (Unsp spec) [#/Vol] 1.74 10*3/uL 0.83-4.51 [facility] Work Phone: Basophil percentageon 2021 Basophils/100 WBC (Bld) 0.6 % 0-1 [facility] Work Phone: [phone] Bilirubin [Mass/Vol] 0.30 mg/dL 0.20-1.00 [facility] Work Phone: Comment on above: For patients on eltr ombopag therapy, use of [employer]ension [place] TBIL is not recommended. Chloride [Moles/Vol] 105 mmol/L 98-107 [facility] Work Phone: Eosinophils/100 WBC (Bld) 3.5 % 0-5 [facility] Work Phone: Glucose [Mass/Vol] 91 mg/dL 74-106 [facility] Work Phone: [phone] Neutrophils (Bld) [#/Vol] 4.2 10*3/uL 2.0-7.7 [facility] Work Phone: [phone] Neutrophils/100 WBC (Bld) 62.6 % 47-70 [facility] Work Phone: [phone] Potassium [Moles/Vol] 3.8 mmol/L 3.5-5.1 [facility] Work Phone: [phone] Protein [Mass/Vol] 6.3 g/dL 6.4-8.2 [facility] Work Phone: Sodium [Moles/Vol] 139 mmol/L 136-145 [facility] Work Phone: WBC (Bld) [#/Vol] 6.6 10*3/uL 4.4-11.0 [facility] Work Phone: [phone] Blood erythrocytes count (nu mber/volume)on 09-19-2021 RBC (Bld) [#/Vol] 3.47 10*6/uL 4.6-6.2 [place] Work Phone: Blood hemoglobin measurement (mass/volume)on 09-19-2021 Hemoglobin (Bld) [Mass/Vol] 10.2 g/dL 13.0-16.5 [facility] Work Phone: Blood lymphocytes/100 leukoc yteson 09-19-2021 Lymphocytes/100 WBC (Bld) 26.2 % 19-41 [facility] Work Phone: Blood monocytes/100 leukocyt eson 09-19-2021 Monocytes/100 WBC (Bld) 6.5 % 0-10 [facility] Work Phone: Blood platelet mean volumeon 09-19-2021 Platelet mean volume (Bld) [Entitic vol] 9.6 fL 6.2-12.0 [facility] Work Phone: Determination of erythrocyte mean corpuscular volume (MCV)on 09-19-2021 MCV (RBC) [Entitic vol] 94.8 fL 80-94 [facility] Work Phone: Hematocrit Auto (Bld) [Volum e fraction]on 09-19-2021 Hematocrit (Bld) [Volume fraction] 32.9 % 40-54 [facility] Work Phone: Laboratory - Chemistry and C hemistry - challengeon 09-19-2021 ALP [Catalytic activity/Vol] 109 U/L 45-117 [facility] Work Phone: ALT [Catalytic activity/Vol] 23 U/L 16-61 [facility] Work Phone: CO2 [Moles/Vol] 26.0 mmol/L 21.0-32.0 [facility] Work Phone: Globulin (S) [Mass/Vol] 3.5 g/dL 2.2-4.2 [facility] Work Phone: Urea nitrogen/Creatinine [Mass ratio] 15.3 mg/mg 10-20 [facility] Work Phone: Laboratory - Hematology and Cell countson 09-19-2021 Erythrocyte distribution width (RBC) [Entitic vol] 59.4 fL 35.1-43.9 [facility] Work Phone: Erythrocyte distribution width (RBC) [Ratio] 17.1 % 11.6-14.6 [facility] Work Phone: Immature granulocytes/100 WBC (Bld) 0.600 % 0.0-0.9 [facility] Work Phone: Comment on above: IG% - Immature Granu locytes (promyelocytes, myelocytes and metamyelocytes) > 1% indicates that a LEFT SHIFT is Present. MCH (RBC) [Entitic mass] 29.4 pg 27.0-32.0 [facility] Work Phone: Nucleated RBC/100 WBC (Bld) [Ratio] 0 % 0-5 [facility] Work Phone: MCHC Auto (RBC) [Mass/Vol]on 09-19-2021 MCHC (RBC) [Mass/Vol] 31.0 g/dL 32-36 [facility] Work Phone: No Panel Informationon 09-19 Estimated GFR (MDRD) Amer 175 mL/min >60 [facility] Work Phone: Comment on above: GFR Calc Estimated GFR (MDRD) Non-Af Amer 145 mL/min >60 [facility] Work Phone: Comment on above: Non- GFR Calc Platelets bldon 09-19-2021 Platelets (Bld) [#/Vol] 342 10*3/uL 150-450 [facility] Work Phone: Serum or plasma albumin oral urement (mass/volume)on 09-19-2021 Albumin [Mass/Vol] 2.8 g/dL 3.2-5.0 [facility] Work Phone: Serum or plasma albumin/glob ulin mass ratioon 09-19-2021 Albumin/Globulin [Mass ratio] 0.8 {ratio} 0.9-2.4 [facility] Work Phone: Serum or plasma calcium oral urement (mass/volume)on 09-19-2021 Calcium [Mass/Vol] 9.0 mg/dL 8.5-10.1 [facility] Work Phone: Serum or plasma creatinine m easurement (mass/volume)on 09-19-2021 Creatinine [Mass/Vol] 0.59 mg/dL 0.70-1.30 [facility] Work Phone: Comment on above: The validity of the calculated GFR & GFRAA in patients over 70 years has not been determined. Clinical correlation is essential. Serum or plasma urea nitroge n measurement (mass/volume)on 09-19-2021 Urea nitrogen [Mass/Vol] 9 mg/dL 7-18 [facility] Work Phone: Thin prep Papanicolaou smear with manual screeningon 09-19-2021 Thin prep Papanicolaou smear with manual screening 12 U/L 15-37 [facility] Work Phone: Thin prep Papanicolaou smear with manual screening 8 5-15 [facility] Work Phone: OPERATIVE NOon 08-22-2021 OPERATIVE NO Normal [facility] Basic metabolic 2000 panelon 08-19-2021 Anion gap [Moles/Vol] 10 mmol/L Normal 9-18 [facility] Comment on above: Order Comment: Speci men Type: BLOOD SPECIMENOrdering Facility: [facility] Address: [address] [place] [address] Performed By: #### 2 4321-2 ####[facility] LABORATORYCLIA [id number] [place] [address] [place] Calcium [Mass/Vol] 8.6 mg/dL Normal 8.5-10.2 [facility] Comment on above: Order Comment: Speci men Type: BLOOD SPECIMENOrdering Facility: [facility] Address: [address] [place] [address] Performed By: #### 2 4321-2 ####[facility] LABORATORYCLIA [id number] [place] [address] [place] Chloride [Moles/Vol] 99 mmol/L Normal 97-105 [facility] Comment on above: Order Comment: Speci men Type: BLOOD SPECIMENOrdering Facility: [facility] Address: [address] [place] [address] Performed By: #### 2 4321-2 ####[facility] LABORATORYCLIA [id number] [place] [address] [place] CO2 [Moles/Vol] 29 mmol/L Normal 22-30 [facility] Comment on above: Order Comment: Speci men Type: BLOOD SPECIMENOrdering Facility: [facility] Address: [address] [place] [address] Performed By: #### 2 4321-2 ####[facility] LABORATORYCLIA [id number] [place] [address] [place] Creatinine [Mass/Vol] 0.58 mg/dL Low 0.73-1.22 [facility] Comment on above: Order Comment: Speci men Type: BLOOD SPECIMENOrdering Facility: [facility] Address: [address] [place] [address] Performed By: #### 2 4321-2 ####[facility] LABORATORYCLIA [id number] [address] ESTIMATED GLOMERULAR FILTRATION RATE 106 mL/min/1.73m??? Normal >=60 [facility] Comment on above: Order Comment: Speci men Type: BLOOD SPECIMENOrdering Facility: [facility] Address: [address] [place] [address] Result Comment: Luzmaria mated Glomerular Filtration Rate [...] Performed By: #### 2 4321-2 ####[facility] LABORATORYCLIA [id number] [address] [place] Glucose [Mass/Vol] 101 mg/dL High 74-99 [facility] Comment on above: Order Comment: Speci men Type: BLOOD SPECIMENOrdering Facility: [facility] Address: [address] [address] Result Comment: The [place] [employer] Association (ADA) provides guidance for cutoff [...] Standards of Medical Care in Diabetes 2016, [place] [employer]. Diabetes Care. 2016.39(Suppl 1). Performed By: #### 2 4321-2 ####[facility] LABORATORYCLIA [id number] [place] [address] [place] Potassium [Moles/Vol] 3.5 mmol/L Low 3.7-5.1 [facility] Comment on above: Order Comment: Shira men Type: BLOOD SPECIMENOrdering Facility: [facility] Address: [address] [place] [address] Performed By: #### 2 4321-2 ####[facility] LABORATORYCLIA [id number] [place] [address] [place] Sodium [Moles/Vol] 138 mmol/L Normal 136-144 [facility] Comment on above: Order Comment: Speci men Type: BLOOD SPECIMENOrdering Facility: [facility] Address: [address] [address] Performed By: #### 2 4321-2 ####[facility] LABORATORYCLIA [id number] [place] [address] [place] Urea nitrogen [Mass/Vol] 11 mg/dL Normal 9-24 [facility] Comment on above: Order Comment: Speci men Type: BLOOD SPECIMENOrdering Facility: [facility] Address: [address] Performed By: #### 2 4321-2 ####[facility] LABORATORYCLIA [id number] [address] [place] CASE MANAGEMon 08-19-2021 CASE MANAGEM Normal [facility] CBC W Auto Differential pane l (Bld)on 08-19-2021 Basophils (Bld) [#/Vol] 0.03 10*3/uL Normal <0.11 [facility] Comment on above: Order Comment: Speci men Type: BLOOD SPECIMENOrdering Facility: [facility] Address: [address] [place] [address] Performed By: #### 5 7021-8 ####[facility] LABORATORYCLIA [id number] [address] Basophils/100 WBC (Bld) 0.4 % Normal [facility] Comment on above: Order Comment: Speci men Type: BLOOD SPECIMENOrdering Facility: [facility] Address: [address] [address] Performed By: #### 5 7021-8 ####[facility] LABORATORYCLIA [id number] [address] Differential cell count method Nom (Bld) Auto Normal [facility] Comment on above: Order Comment: Speci men Type: BLOOD SPECIMENOrdering Facility: [facility] Address: [address] [address] Performed By: #### 5 7021-8 ####[facility] LABORATORYCLIA [id number] [address] [place] Eosinophils (Bld) [#/Vol] 0.24 10*3/uL Normal <0.46 [facility] Comment on above: Order Comment: Speci men Type: BLOOD SPECIMENOrdering Facility: [facility] Address: [address] [address] Performed By: #### 5 7021-8 ####[facility] LABORATORYCLIA [id number] [address] [place] Eosinophils/100 WBC (Bld) 3.1 % Normal [facility] Comment on above: Order Comment: Speci men Type: BLOOD SPECIMENOrdering Facility: [facility] Address: [address] [place] [address] Performed By: #### 5 7021-8 ####[facility] LABORATORYCLIA [id number] [address] STATES [facility] Erythrocyte distribution width (RBC) [Ratio] 17.5 % High 11.5-15.0 [facility] Comment on above: Order Comment: Speci men Type: BLOOD SPECIMENOrdering Facility: [facility] Address: [address] [place] [address] Performed By: #### 5 7021-8 ####[facility] LABORATORYCLIA [id number] [address] Hematocrit (Bld) [Volume fraction] 30.2 % Low 39.0-51.0 [facility] Comment on above: Order Comment: Speci men Type: BLOOD SPECIMENOrdering Facility: [facility] Address: [address] [place] [address] Performed By: #### 5 7021-8 ####[facility] LABORATORYCLIA [id number] [address] Hemoglobin (Bld) [Mass/Vol] 9.6 g/dL Low 13.0-17.0 [facility] Comment on above: Order Comment: Speci men Type: BLOOD SPECIMENOrdering Facility: [facility] Address: [address] [place] [address] Performed By: #### 5 7021-8 ####[facility]ORATORYCLIA [id number] [address] IMMATURE GRAN % 0.4 % Normal [facility] Comment on above: Order Comment: Speci men Type: BLOOD SPECIMENOrdering Facility: [facility] Address: [address] [place] [address] Performed By: #### 5 7021-8 ####[facility]ORATORYCLIA [id number] [address] IMMATURE GRAN ABS 0.03 k/uL Normal <0.10 [facility] Comment on above: Order Comment: Speci men Type: BLOOD SPECIMENOrdering Facility: [facility] Address: [address] [place] [address] Performed By: #### 5 7021-8 ####[facility] LABORATORYCLIA [id number] [address] Lymphocytes (Bld) [#/Vol] 1.71 10*3/uL Normal 1.00-4.00 [facility] Comment on above: Order Comment: Speci men Type: BLOOD SPECIMENOrdering Facility: [facility] Address: [address] [place] [address] Performed By: #### 5 7021-8 ####[facility] LABORATORYCLIA [id number] [address] Lymphocytes/100 WBC (Bld) 22.2 % Normal [facility] Comment on above: Order Comment: Speci men Type: BLOOD SPECIMENOrdering Facility: [facility] Address: [address] [place] [address] Performed By: #### 5 7021-8 ####[facility] LABORATORYCLIA [id number] [address] MCH (RBC) [Entitic mass] 29.4 pg Normal 26.0-34.0 [facility] Comment on above: Order Comment: Speci men Type: BLOOD SPECIMENOrdering Facility: [facility] Address: [address] [place] [address] Performed By: #### 5 7021-8 ####[facility] LABORATORYCLIA [id number] [address] MCHC (RBC) [Mass/Vol] 31.8 g/dL Normal 30.5-36.0 [facility] Comment on above: Order Comment: Speci men Type: BLOOD SPECIMENOrdering Facility: [facility] Address: [address] [address] Performed By: #### 5 7021-8 ####[facility]ORATORYCLIA [id number] [address] [place] MCV (RBC) [Entitic vol] 92.6 fL Normal 80.0-100.0 [facility] Comment on above: Order Comment: Speci men Type: BLOOD SPECIMENOrdering Facility: [facility] Address: [address] [place] [address] Performed By: #### 5 7021-8 ####[facility] LABORATORYCLIA [id number] [address] [place] Monocytes (Bld) [#/Vol] 0.50 10*3/uL Normal <0.87 [facility] Comment on above: Order Comment: Speci men Type: BLOOD SPECIMENOrdering Facility: [facility] Address: [address] [place] [address] Performed By: #### 5 7021-8 ####[facility] LABORATORYCLIA [id number] [address] Monocytes/100 WBC (Bld) 6.5 % Normal [facility] Comment on above: Order Comment: Speci men Type: BLOOD SPECIMENOrdering Facility: [facility] Address: [address] [place] [address] Performed By: #### 5 7021-8 ####[facility] LABORATORYCLIA [id number] [address] [place] Neutrophils (Bld) [#/Vol] 5.20 10*3/uL Normal 1.45-7.50 [facility] Comment on above: Order Comment: Speci men Type: BLOOD SPECIMENOrdering Facility: [facility] Address: [address] [place] [address] Performed By: #### 5 7021-8 ####[facility] LABORATORYCLIA [id number] [address] [place] Neutrophils/100 WBC (Bld) 67.4 % Normal [facility] Comment on above: Order Comment: Speci men Type: BLOOD SPECIMENOrdering Facility: [facility] Address: [address] [place], [place] [address] Performed By: #### 5 7021-8 ####[facility] LABORATORYCLIA [id number] [address] [place] Nucleated RBC (Bld) [#/Vol] 10*3/uL Normal <0.01 [facility] Comment on above: Order Comment: Speci men Type: BLOOD SPECIMENOrdering Facility: [facility] Address: [address] [place] [address] Performed By: #### 5 7021-8 ####[facility] LABORATORYCLIA [id number] [address] [place] Nucleated RBC/100 WBC (Bld) [Ratio] 0.0 /100 WBC Normal [facility] Comment on above: Order Comment: Speci men Type: BLOOD SPECIMENOrdering Facility: [facility] Address: [address] [place], [place] [address] Performed By: #### 5 7021-8 ####[facility] LABORATORYCLIA [id number] [address] [place] Platelet mean volume (Bld) [Entitic vol] 8.9 fL Low 9.0-12.7 [facility] Comment on above: Order Comment: Speci men Type: BLOOD SPECIMENOrdering Facility: [facility] Address: [address] [place], [place] [address] Performed By: #### 5 7021-8 ####[facility] LABORATORYCLIA [id number] [place] [address] [place] Platelets (Bld) [#/Vol] 408 10*3/uL High 150-400 [facility] Comment on above: Order Comment: Speci men Type: BLOOD SPECIMENOrdering Facility: [facility] Address: [address] [place], [place] [address] Performed By: #### 5 7021-8 ####[facility] LABORATORYCLIA [id number] [address] [place] RBC (Bld) [#/Vol] 3.26 10*6/uL Low 4.20-6.00 [facility] Comment on above: Order Comment: Speci men Type: BLOOD SPECIMENOrdering Facility: [facility] Address: [address] [place] [address] Performed By: #### 5 7021-8 ####[facility]ORATORYCLIA [id number] [address] OF [facility] WBC (Bld) [#/Vol] 7.71 10*3/uL Normal 3.70-11.00 [facility] Comment on above: Order Comment: Speci men Type: BLOOD SPECIMENOrdering Facility: [facility] Address: [address] [place] [address] Performed By: #### 5 7021-8 ####[facility]ORATORYCLIA [id number] [address] [place] CNDSon 08-19-2021 CNDS Normal [facility] CONSULT PROGon 08-19-2021 CONSULT PROG Normal [facility] THERAPY NTon 08-19-2021 THERAPY NT Normal [facility] Basic metabolic 2000 panelon 08-18-2021 Anion gap [Moles/Vol] 11 mmol/L Normal 9-18 [facility] Comment on above: Order Comment: Speci men Type: BLOOD SPECIMENOrdering Facility: [facility] Address: [address] [place] [address] Performed By: #### 2 4321-2 ####[facility] LABORATORYCLIA [id number] [address] Calcium [Mass/Vol] 8.6 mg/dL Normal 8.5-10.2 [facility] Comment on above: Order Comment: Speci men Type: BLOOD SPECIMENOrdering Facility: [facility] Address: [address] [place] [address] Performed By: #### 2 4321-2 ####[facility]ORATORYCLIA [id number] [address] Chloride [Moles/Vol] 98 mmol/L Normal 97-105 [facility] Comment on above: Order Comment: Speci men Type: BLOOD SPECIMENOrdering Facility: [facility] Address: [address] [place] [address] Performed By: #### 2 4321-2 ####[facility] LABORATORYCLIA [id number] [address] OF [facility] CO2 [Moles/Vol] 28 mmol/L Normal 22-30 [facility] Comment on above: Order Comment: Speci men Type: BLOOD SPECIMENOrdering Facility: [facility] Address: [address] [place] [address] Performed By: #### 2 4321-2 ####[facility] HOSPITALCLIA [id number] [address] Creatinine [Mass/Vol] 0.56 mg/dL Low 0.73-1.22 [facility] Comment on above: Order Comment: Speci men Type: BLOOD SPECIMENOrdering Facility: [facility] Address: [address] [place] [address] Performed By: #### 2 4321-2 ####[facility]ORATORYCLIA [id number] [address] ESTIMATED GLOMERULAR FILTRATION RATE 107 mL/min/1.73m??? Normal >=60 [facility] Comment on above: Order Comment: Speci men Type: BLOOD SPECIMENOrdering Facility: [facility] Address: [address] [place] [address] Result Comment: Luzmaria mated Glomerular Filtration Rate [...] Performed By: #### 2 4321-2 ####[facility]ORATORYCLIA [id number] [place] [address] [place] Glucose [Mass/Vol] 113 mg/dL High 74-99 [facility] Comment on above: Order Comment: Shira feldman Type: BLOOD SPECIMENOrdering Facility: [facility] Address: [address] [place] [address] Result Comment: The [place] [employer] (ADA) provides guidance for cutoff [...] Standards of Medical Care in Diabetes 2016, [place] [employer]. Diabetes Care. 2016.39(Suppl 1). Performed By: #### 2 4321-2 ####[facility]ORATORYCLIA [id number] [place] [address] [place] Potassium [Moles/Vol] 3.5 mmol/L Low 3.7-5.1 [facility] Comment on above: Order Comment: Shira feldman Type: BLOOD SPECIMENOrdering Facility: [facility] Address: [address] [place] [address] Performed By: #### 2 4321-2 ####[facility]ORATORYCLIA [id number] [place] [address] [place] Sodium [Moles/Vol] 137 mmol/L Normal 136-144 [facility] Comment on above: Order Comment: Shira feldman Type: BLOOD SPECIMENOrdering Facility: [facility] Address: [address] [place] [address] Performed By: #### 2 4321-2 ####[facility]ORATORYCLIA [id number] [place] [address] [place] Urea nitrogen [Mass/Vol] 10 mg/dL Normal 9-24 [facility] Comment on above: Order Comment: Speci men Type: BLOOD SPECIMENOrdering Facility: [facility] Address: [address] [place] [address] Performed By: #### 2 4321-2 ####[facility]ORATORYCLIA [id number] [place] [address] [place] CBC W Auto Differential pane l (Bld)on 08-18-2021 Basophils (Bld) [#/Vol] 10*3/uL Normal <0.11 [facility] Comment on above: Order Comment: Speci men Type: BLOOD SPECIMENOrdering Facility: [facility] Address: [address] [place] [address] Performed By: #### 5 7021-8 ####[facility]ORATORYCLIA [id number] [place] [address] [place] Basophils/100 WBC (Bld) 0.3 % Normal [facility] Comment on above: Order Comment: Speci men Type: BLOOD SPECIMENOrdering Facility: [facility] Address: [address] [place] [address] Performed By: #### 5 7021-8 ####[facility]ORATORYCLIA [id number] [address] [place] Differential cell count method Nom (Bld) Auto Normal [facility] Comment on above: Order Comment: Speci men Type: BLOOD SPECIMENOrdering Facility: [facility] Address: [address] [place] [address] Performed By: #### 5 7021-8 ####[facility]ORATORYCLIA [id number] [place] [address] [place] Eosinophils (Bld) [#/Vol] 0.37 10*3/uL Normal <0.46 [facility] Comment on above: Order Comment: Speci men Type: BLOOD SPECIMENOrdering Facility: [facility] Address: [address] [place] [address] Performed By: #### 5 7021-8 ####[facility]ORATORYCLIA [id number] [address] [place] Eosinophils/100 WBC (Bld) 4.8 % Normal [facility] Comment on above: Order Comment: Speci men Type: BLOOD SPECIMENOrdering Facility: [facility] Address: [address] [place] [address] Performed By: #### 5 7021-8 ####[facility]ORATORYCLIA [id number] [address] STATES [facility] Erythrocyte distribution width (RBC) [Ratio] 17.5 % High 11.5-15.0 [facility] Comment on above: Order Comment: Speci men Type: BLOOD SPECIMENOrdering Facility: [facility] Address: [address] [place] [address] Performed By: #### 5 7021-8 ####[facility]ORATORYCLIA [id number] [address] Hematocrit (Bld) [Volume fraction] 30.2 % Low 39.0-51.0 [facility] Comment on above: Order Comment: Speci men Type: BLOOD SPECIMENOrdering Facility: [facility] Address: [address] [place] [address] Performed By: #### 5 7021-8 ####[facility]ORATORYCLIA [id number] [address] [place] Hemoglobin (Bld) [Mass/Vol] 9.5 g/dL Low 13.0-17.0 [facility] Comment on above: Order Comment: Speci men Type: BLOOD SPECIMENOrdering Facility: [facility] Address: [address] [place] [address] Performed By: #### 5 7021-8 ####[facility]ORATORYCLIA [id number] [address] IMMATURE GRAN % 0.4 % Normal [facility] Comment on above: Order Comment: Speci men Type: BLOOD SPECIMENOrdering Facility: [facility] Address: [address] [place], [place] [address] Performed By: #### 5 7021-8 ####[facility]ATORYCLIA [id number] [address] IMMATURE GRAN ABS 0.03 k/uL Normal <0.10 [facility] Comment on above: Order Comment: Speci men Type: BLOOD SPECIMENOrdering Facility: [facility] Address: [address] [place] [address] Performed By: #### 5 7021-8 ####[facility]ORATORYCLIA [id number] [address] Lymphocytes (Bld) [#/Vol] 1.85 10*3/uL Normal 1.00-4.00 [facility] Comment on above: Order Comment: Speci men Type: BLOOD SPECIMENOrdering Facility: [facility] Address: [address] [place] [address] Performed By: #### 5 7021-8 ####[facility]ORATORYCLIA [id number] [address] Lymphocytes/100 WBC (Bld) 23.8 % Normal [facility] Comment on above: Order Comment: Speci men Type: BLOOD SPECIMENOrdering Facility: [facility] Address: [address] [place] [address] Performed By: #### 5 7021-8 ####[facility]ORATORYCLIA [id number] [address] MCH (RBC) [Entitic mass] 29.5 pg Normal 26.0-34.0 [facility] Comment on above: Order Comment: Speci men Type: BLOOD SPECIMENOrdering Facility: [facility] Address: [address] [place] [address] Performed By: #### 5 7021-8 ####[facility]ORATORYCLIA [id number] [address] [place] MCHC (RBC) [Mass/Vol] 31.5 g/dL Normal 30.5-36.0 [facility] Comment on above: Order Comment: Speci men Type: BLOOD SPECIMENOrdering Facility: [facility] Address: [address] [place] [address] Performed By: #### 5 7021-8 ####[facility]ORATORYCLIA [id number] [address] [place] MCV (RBC) [Entitic vol] 93.8 fL Normal 80.0-100.0 [facility] Comment on above: Order Comment: Speci men Type: BLOOD SPECIMENOrdering Facility: [facility] Address: [address] [place] [address] Performed By: #### 5 7021-8 ####[facility]ATORYCLIA [id number] [address] [place] Monocytes (Bld) [#/Vol] 0.49 10*3/uL Normal <0.87 [facility] Comment on above: Order Comment: Speci men Type: BLOOD SPECIMENOrdering Facility: [facility] Address: [address] [place] [address] Performed By: #### 5 7021-8 ####[facility]ATORYCLIA [id number] [address] Monocytes/100 WBC (Bld) 6.3 % Normal [facility] Comment on above: Order Comment: Speci men Type: BLOOD SPECIMENOrdering Facility: [facility] Address: [address] [place] [address] Performed By: #### 5 7021-8 ####[facility]ORYCLIA [id number] [address] [place] Neutrophils (Bld) [#/Vol] 5.00 10*3/uL Normal 1.45-7.50 [facility] Comment on above: Order Comment: Speci men Type: BLOOD SPECIMENOrdering Facility: [facility] Address: [address] [place] [address] Performed By: #### 5 7021-8 ####[facility]ATORYCLIA [id number] [address] [place] Neutrophils/100 WBC (Bld) 64.4 % Normal [facility] Comment on above: Order Comment: Speci men Type: BLOOD SPECIMENOrdering Facility: [facility] Address: [address] [place] [address] Performed By: #### 5 7021-8 ####[facility]ATORYCLIA [id number] [address] [place] Nucleated RBC (Bld) [#/Vol] 10*3/uL Normal <0.01 [facility] Comment on above: Order Comment: Speci men Type: BLOOD SPECIMENOrdering Facility: [facility] Address: [address] [place] [address] Performed By: #### 5 7021-8 ####[facility] LABORATORYCLIA [id number] [address] STATES OF [facility] Nucleated RBC/100 WBC (Bld) [Ratio] 0.0 /100 WBC Normal [facility] Comment on above: Order Comment: Speci men Type: BLOOD SPECIMENOrdering Facility: [facility] Address: [address] [place] [address] Performed By: #### 5 7021-8 ####[facility]ATORYCLIA [id number] [address] [place] Platelet mean volume (Bld) [Entitic vol] 9.1 fL Normal 9.0-12.7 [facility] Comment on above: Order Comment: Speci men Type: BLOOD SPECIMENOrdering Facility: [facility] Address: [address] [address] Performed By: #### 5 7021-8 ####[facility]ORATORYCLIA [id number] [address] [place] Platelets (Bld) [#/Vol] 391 10*3/uL Normal 150-400 [facility] Comment on above: Order Comment: Speci men Type: BLOOD SPECIMENOrdering Facility: [facility] Address: [address] [place] [address] Performed By: #### 5 7021-8 ####[facility] LABORATORYCLIA [id number] [address] STATES OF [facility] RBC (Bld) [#/Vol] 3.22 10*6/uL Low 4.20-6.00 [facility] Comment on above: Order Comment: Speci men Type: BLOOD SPECIMENOrdering Facility: [facility] Address: [address] [place] [address] Performed By: #### 5 7021-8 ####[facility]ATORYCLIA [id number] [address] [place] WBC (Bld) [#/Vol] 7.76 10*3/uL Normal 3.70-11.00 [facility] Comment on above: Order Comment: Speci men Type: BLOOD SPECIMENOrdering Facility: [facility] Address: [address] [place] [address] Performed By: #### 5 7021-8 ####[facility] LABORATORYCLIA [id number] [address] STATES OF [facility] CONSULT PROGon 08-18-2021 CONSULT PROG Normal [facility] CASE MANAGEMon 08-17-2021 CASE MANAGEM Normal [facility] CBC W Auto Differential pane l (Bld)on 08-17-2021 Basophils (Bld) [#/Vol] 0.04 10*3/uL Normal <0.11 [facility] Comment on above: Order Comment: Speci men Type: BLOOD SPECIMENOrdering Facility: [facility] Address: [address] [place] [address] Performed By: #### 5 7021-8 ####[facility] LABORATORYCLIA [id number] [address] STATES [facility] Basophils/100 WBC (Bld) 0.5 % Normal [facility] Comment on above: Order Comment: Speci men Type: BLOOD SPECIMENOrdering Facility: [facility] Address: [address] [place] [address] Performed By: #### 5 7021-8 ####[facility] LABORATORYCLIA [id number] [address] Differential cell count method Nom (Bld) Auto Normal [facility] Comment on above: Order Comment: Speci men Type: BLOOD SPECIMENOrdering Facility: [facility] Address: [address] [place] [address] Performed By: #### 5 7021-8 ####[facility] LABORATORYCLIA [id number] [address] Eosinophils (Bld) [#/Vol] 0.31 10*3/uL Normal <0.46 [facility] Comment on above: Order Comment: Speci men Type: BLOOD SPECIMENOrdering Facility: [facility] Address: [address] [place] [address] Performed By: #### 5 7021-8 ####[facility]ORATORYCLIA [id number] [address] Eosinophils/100 WBC (Bld) 3.7 % Normal [facility] Comment on above: Order Comment: Speci men Type: BLOOD SPECIMENOrdering Facility: [facility] Address: [address] [place] [address] Performed By: #### 5 7021-8 ####[facility]ORATORYCLIA [id number] [address] Erythrocyte distribution width (RBC) [Ratio] 17.4 % High 11.5-15.0 [facility] Comment on above: Order Comment: Speci men Type: BLOOD SPECIMENOrdering Facility: [facility] Address: [address] [place] [address] Performed By: #### 5 7021-8 ####[facility] LABORATORYCLIA [id number] [address] Hematocrit (Bld) [Volume fraction] 30.6 % Low 39.0-51.0 [facility] Comment on above: Order Comment: Speci men Type: BLOOD SPECIMENOrdering Facility: [facility] Address: [address] [place] [address] Performed By: #### 5 7021-8 ####[facility] LABORATORYCLIA [id number] [address] Hemoglobin (Bld) [Mass/Vol] 9.6 g/dL Low 13.0-17.0 [facility] Comment on above: Order Comment: Speci men Type: BLOOD SPECIMENOrdering Facility: [facility] Address: [address] [place] [address] Performed By: #### 5 7021-8 ####[facility] LABORATORYCLIA [id number] [address] IMMATURE GRAN % 0.2 % Normal [facility] Comment on above: Order Comment: Speci men Type: BLOOD SPECIMENOrdering Facility: [facility] Address: [address] [place] [address] Performed By: #### 5 7021-8 ####[facility] LABORATORYCLIA [id number] [address] IMMATURE GRAN ABS <0.03 Normal <0.10 [facility] Comment on above: Order Comment: Speci men Type: BLOOD SPECIMENOrdering Facility: [facility] Address: [address] [place] [address] Performed By: #### 5 7021-8 ####[facility] LABORATORYCLIA [id number] [address] [place] Lymphocytes (Bld) [#/Vol] 1.66 10*3/uL Normal 1.00-4.00 [facility] Comment on above: Order Comment: Speci men Type: BLOOD SPECIMENOrdering Facility: [facility] Address: [address] [place] [address] Performed By: #### 5 7021-8 ####[facility] LABORATORYCLIA [id number] [address] Lymphocytes/100 WBC (Bld) 19.9 % Normal [facility] Comment on above: Order Comment: Speci men Type: BLOOD SPECIMENOrdering Facility: [facility] Address: [address] [place] [address] Performed By: #### 5 7021-8 ####[facility] LABORATORYCLIA [id number] [address] MCH (RBC) [Entitic mass] 28.9 pg Normal 26.0-34.0 [facility] Comment on above: Order Comment: Speci men Type: BLOOD SPECIMENOrdering Facility: [facility] Address: [address] [place] [address] Performed By: #### 5 7021-8 ####[facility] LABORATORYCLIA [id number] [address] MCHC (RBC) [Mass/Vol] 31.4 g/dL Normal 30.5-36.0 [facility] Comment on above: Order Comment: Speci men Type: BLOOD SPECIMENOrdering Facility: [facility] Address: [address] [place] [address] Performed By: #### 5 7021-8 ####[facility] LABORATORYCLIA [id number] [address] MCV (RBC) [Entitic vol] 92.2 fL Normal 80.0-100.0 [facility] Comment on above: Order Comment: Speci men Type: BLOOD SPECIMENOrdering Facility: [facility] Address: [address] [place] [address] Performed By: #### 5 7021-8 ####[facility] LABORATORYCLIA [id number] [address] Monocytes (Bld) [#/Vol] 0.52 10*3/uL Normal <0.87 [facility] Comment on above: Order Comment: Speci men Type: BLOOD SPECIMENOrdering Facility: [facility] Address: [address] [place] [address] Performed By: #### 5 7021-8 ####[facility] LABORATORYCLIA [id number] [place] [address] [place] Monocytes/100 WBC (Bld) 6.2 % Normal [facility] Comment on above: Order Comment: Speci men Type: BLOOD SPECIMENOrdering Facility: [facility] Address: [address] [place] [address] Performed By: #### 5 7021-8 ####[facility] LABORATORYCLIA [id number] [place] [address] [place] Neutrophils (Bld) [#/Vol] 5.78 10*3/uL Normal 1.45-7.50 [facility] Comment on above: Order Comment: Speci men Type: BLOOD SPECIMENOrdering Facility: [facility] Address: [address] [place] [address] Performed By: #### 5 7021-8 ####[facility] LABORATORYCLIA [id number] [address] [place] Neutrophils/100 WBC (Bld) 69.5 % Normal [facility] Comment on above: Order Comment: Speci men Type: BLOOD SPECIMENOrdering Facility: [facility] Address: [address] [place] [address] Performed By: #### 5 7021-8 ####[facility] LABORATORYCLIA [id number] [place] [address] [place] Nucleated RBC (Bld) [#/Vol] 10*3/uL Normal <0.01 [facility] Comment on above: Order Comment: Speci men Type: BLOOD SPECIMENOrdering Facility: [facility] Address: [address] [place] [address] Performed By: #### 5 7021-8 ####[facility] LABORATORYCLIA [id number] [place] [address] [place] Nucleated RBC/100 WBC (Bld) [Ratio] 0.0 /100 WBC Normal [facility] Comment on above: Order Comment: Speci men Type: BLOOD SPECIMENOrdering Facility: [facility] Address: [address] [place] [address] Performed By: #### 5 7021-8 ####[facility] LABORATORYCLIA [id number] [address] Platelet mean volume (Bld) [Entitic vol] 9.2 fL Normal 9.0-12.7 [facility] Comment on above: Order Comment: Speci men Type: BLOOD SPECIMENOrdering Facility: [facility] Address: [address] [place] [address] Performed By: #### 5 7021-8 ####[facility] LABORATORYCLIA [id number] [address] [place] Platelets (Bld) [#/Vol] 379 10*3/uL Normal 150-400 [facility] Comment on above: Order Comment: Speci men Type: BLOOD SPECIMENOrdering Facility: [facility] Address: [address] [place] [address] Performed By: #### 5 7021-8 ####[facility] LABORATORYCLIA [id number] [address] [place] RBC (Bld) [#/Vol] 3.32 10*6/uL Low 4.20-6.00 [facility] Comment on above: Order Comment: Speci men Type: BLOOD SPECIMENOrdering Facility: [facility] Address: [address] [place] [address] Performed By: #### 5 7021-8 ####[facility] LABORATORYCLIA [id number] [address] [place] WBC (Bld) [#/Vol] 8.33 10*3/uL Normal 3.70-11.00 [facility] Comment on above: Order Comment: Speci men Type: BLOOD SPECIMENOrdering Facility: [facility] Address: [address] [place] [address] Performed By: #### 5 7021-8 ####[facility] LABORATORYCLIA [id number] [address] OF [facility] CONSULT PROGon 08-17-2021 CONSULT PROG Normal [facility] NUTRITIONon 08-17-2021 NUTRITION Normal [facility] Basic metabolic 2000 panelon 08-16-2021 Anion gap [Moles/Vol] 14 mmol/L Normal 9-18 [facility] Comment on above: Order Comment: Speci men Type: BLOOD SPECIMENOrdering Facility: [facility] Address: [address] [place] [address] Performed By: #### 2 4321-2, ####[facility] LABORATORYCLIA [id number] [place] [address] [place] Calcium [Mass/Vol] 8.8 mg/dL Normal 8.5-10.2 [facility] Comment on above: Order Comment: Speci men Type: BLOOD SPECIMENOrdering Facility: [facility] Address: [address] [place] [address] Performed By: #### 2 4320-2, ####[facility] LABORATORYCLIA [id number] [place] [address] [place] Chloride [Moles/Vol] 97 mmol/L Normal 97-105 [facility] Comment on above: Order Comment: Speci men Type: BLOOD SPECIMENOrdering Facility: [facility] Address: [address] [place] [address] Performed By: #### 2 4320-2, ####[facility] LABORATORYCLIA [id number] [place] [address] [place] CO2 [Moles/Vol] 27 mmol/L Normal 22-30 [facility] Comment on above: Order Comment: Speci men Type: BLOOD SPECIMENOrdering Facility: [facility] Address: [address] [place] [address] Performed By: #### 2 4320-2, ####[facility] LABORATORYCLIA [id number] [place] [address] [place] Creatinine [Mass/Vol] 0.50 mg/dL Low 0.73-1.22 [facility] Comment on above: Order Comment: Johncara francia Type: BLOOD SPECIMENOrdering Facility: [facility] Address: [address] [address] Performed By: #### 2 4321-2, 04638-3 ####[facility] HOSPITALCLIA [id number] [address] [place] ESTIMATED GLOMERULAR FILTRATION RATE 110 mL/min/1.73m??? Normal >=60 [facility] Comment on above: Order Comment: Shira francia Type: BLOOD SPECIMENOrdering Facility: [facility] Address: [address] [place] [address] Result Comment: Luzmaria mated Glomerular Filtration Rate [...] actual GFR. Performed By: #### 2 4321-2, 13206-2 ####[facility] LABORATORYIA [id number] [place] [address] [place] Glucose [Mass/Vol] 101 mg/dL High 74-99 [facility] Comment on above: Order Comment: Shira feldman Type: BLOOD SPECIMENOrdering Facility: [facility] Address: [address] [place] [address] Result Comment: The [place] [employer] (ADA) provides guidance for cutoff [...] Standards of Medical Care in Diabetes 2016, [place] [employer]. Diabetes Care. 2016.39(Suppl 1). Performed By: #### 2 432-2, ####[facility] LABORATORYCLIA [id number] [place] [address] [place] Potassium [Moles/Vol] 3.6 mmol/L Low 3.7-5.1 [facility] Comment on above: Order Comment: Speci men Type: BLOOD SPECIMENOrdering Facility: [facility] Address: [address] [place] [address] Performed By: #### 2 432-2, ####[facility] LABORATORYCLIA [id number] [address] [place] Sodium [Moles/Vol] 138 mmol/L Normal 136-144 [facility] Comment on above: Order Comment: Speci men Type: BLOOD SPECIMENOrdering Facility: [facility] Address: [address] [place] [address] Performed By: #### 2 4320-06, ####[facility] LABORATORYCLIA [id number] [address] [place] Urea nitrogen [Mass/Vol] 11 mg/dL Normal 9-24 [facility] Comment on above: Order Comment: Speci men Type: BLOOD SPECIMENOrdering Facility: [facility] Address: [address] [place] [address] Performed By: #### 2 4322, ####[facility] LABORATORYCLIA [id number] [address] [place] CASE MANAGEMon 08-16-2021 CASE MANAGEM Normal [facility] CBC W Auto Differential pane l (Bld)on 08-16-2021 Basophils (Bld) [#/Vol] 0.03 10*3/uL Normal <0.11 [facility] Comment on above: Order Comment: Speci men Type: BLOOD SPECIMENOrdering Facility: [facility] Address: [address] [place] [address] Performed By: #### 5 7021-8 ####[facility] LABORATORYCLIA [id number] [address] STATES [facility] Basophils/100 WBC (Bld) 0.4 % Normal [facility] Comment on above: Order Comment: Speci men Type: BLOOD SPECIMENOrdering Facility: [facility] Address: [address] [place] [address] Performed By: #### 5 7021-8 ####[facility] LABORATORYCLIA [id number] [address] [place] Differential cell count method Nom (Bld) Auto Normal [facility] Comment on above: Order Comment: Speci men Type: BLOOD SPECIMENOrdering Facility: [facility] Address: [address] [place] [address] Performed By: #### 5 7021-8 ####[facility] LABORATORYCLIA [id number] [address] [place] Eosinophils (Bld) [#/Vol] 0.19 10*3/uL Normal <0.46 [facility] Comment on above: Order Comment: Speci men Type: BLOOD SPECIMENOrdering Facility: [facility] Address: [address] [place] [address] Performed By: #### 5 7021-8 ####[facility] LABORATORYCLIA [id number] [address] [place] Eosinophils/100 WBC (Bld) 2.5 % Normal [facility] Comment on above: Order Comment: Speci men Type: BLOOD SPECIMENOrdering Facility: [facility] Address: [address] [place] [address] Performed By: #### 5 7021-8 ####[facility] LABORATORYCLIA [id number] [address] [place] Erythrocyte distribution width (RBC) [Ratio] 17.1 % High 11.5-15.0 [facility] Comment on above: Order Comment: Speci men Type: BLOOD SPECIMENOrdering Facility: [facility] Address: [address] [place] [address] Performed By: #### 5 7021-8 ####[facility] LABORATORYCLIA [id number] [address] OF [facility] Hematocrit (Bld) [Volume fraction] 29.2 % Low 39.0-51.0 [facility] Comment on above: Order Comment: Speci men Type: BLOOD SPECIMENOrdering Facility: [facility] Address: [address] [place] [address] Performed By: #### 5 7021-8 ####[facility] LABORATORYCLIA [id number] [address] Hemoglobin (Bld) [Mass/Vol] 9.0 g/dL Low 13.0-17.0 [facility] Comment on above: Order Comment: Speci men Type: BLOOD SPECIMENOrdering Facility: [facility] Address: [address] [place] [address] Performed By: #### 5 7021-8 ####[facility] LABORATORYCLIA [id number] [address] IMMATURE GRAN % 0.3 % Normal [facility] Comment on above: Order Comment: Speci men Type: BLOOD SPECIMENOrdering Facility: [facility] Address: [address] [place] [address] Performed By: #### 5 7021-8 ####[facility] LABORATORYCLIA [id number] [address] IMMATURE GRAN ABS <0.03 Normal <0.10 [facility] Comment on above: Order Comment: Speci men Type: BLOOD SPECIMENOrdering Facility: [facility] Address: [address] [place] [address] Performed By: #### 5 7021-8 ####[facility] LABORATORYCLIA [id number] [address] Lymphocytes (Bld) [#/Vol] 1.41 10*3/uL Normal 1.00-4.00 [facility] Comment on above: Order Comment: Speci men Type: BLOOD SPECIMENOrdering Facility: [facility] Address: [address] [place] [address] Performed By: #### 5 7021-8 ####[facility] LABORATORYCLIA [id number] [address] Lymphocytes/100 WBC (Bld) 18.4 % Normal [facility] Comment on above: Order Comment: Speci men Type: BLOOD SPECIMENOrdering Facility: [facility] Address: [address] [place] [address] Performed By: #### 5 7021-8 ####[facility] LABORATORYCLIA [id number] [address] MCH (RBC) [Entitic mass] 28.0 pg Normal 26.0-34.0 [facility] Comment on above: Order Comment: Speci men Type: BLOOD SPECIMENOrdering Facility: [facility] Address: [address] [place] [address] Performed By: #### 5 7021-8 ####[facility] LABORATORYCLIA [id number] [address] MCHC (RBC) [Mass/Vol] 30.8 g/dL Normal 30.5-36.0 [facility] Comment on above: Order Comment: Speci men Type: BLOOD SPECIMENOrdering Facility: [facility] Address: [address] [place] [address] Performed By: #### 5 7021-8 ####[facility] LABORATORYCLIA [id number] [address] MCV (RBC) [Entitic vol] 91.0 fL Normal 80.0-100.0 [facility] Comment on above: Order Comment: Speci men Type: BLOOD SPECIMENOrdering Facility: [facility] Address: [address] [place] [address] Performed By: #### 5 7021-8 ####[facility] LABORATORYCLIA [id number] [address] Monocytes (Bld) [#/Vol] 0.47 10*3/uL Normal <0.87 [facility] Comment on above: Order Comment: Speci men Type: BLOOD SPECIMENOrdering Facility: [facility] Address: [address] [place] [address] Performed By: #### 5 7021-8 ####[facility] LABORATORYCLIA [id number] [address] [place] Monocytes/100 WBC (Bld) 6.1 % Normal [facility] Comment on above: Order Comment: Speci men Type: BLOOD SPECIMENOrdering Facility: [facility] Address: [address] [place] [address] Performed By: #### 5 7021-8 ####[facility] LABORATORYCLIA [id number] [address] [place] Neutrophils (Bld) [#/Vol] 5.55 10*3/uL Normal 1.45-7.50 [facility] Comment on above: Order Comment: Speci men Type: BLOOD SPECIMENOrdering Facility: [facility] Address: [address] [place] [address] Performed By: #### 5 7021-8 ####[facility] LABORATORYCLIA [id number] [address] [place] Neutrophils/100 WBC (Bld) 72.3 % Normal [facility] Comment on above: Order Comment: Speci men Type: BLOOD SPECIMENOrdering Facility: [facility] Address: [address] [place] [address] Performed By: #### 5 7021-8 ####[facility] LABORATORYCLIA [id number] [address] [place] Nucleated RBC (Bld) [#/Vol] 10*3/uL Normal <0.01 [facility] Comment on above: Order Comment: Speci men Type: BLOOD SPECIMENOrdering Facility: [facility] Address: [address] [place] [address] Performed By: #### 5 7021-8 ####[facility] LABORATORYCLIA [id number] [address] [place] Nucleated RBC/100 WBC (Bld) [Ratio] 0.0 /100 WBC Normal [facility] Comment on above: Order Comment: Speci men Type: BLOOD SPECIMENOrdering Facility: [facility] Address: [address] [place] [address] Performed By: #### 5 7021-8 ####[facility] LABORATORYCLIA [id number] [place] [address] [place] Platelet mean volume (Bld) [Entitic vol] 9.3 fL Normal 9.0-12.7 [facility] Comment on above: Order Comment: Speci men Type: BLOOD SPECIMENOrdering Facility: [facility] Address: [address] [place] [address] Performed By: #### 5 7021-8 ####[facility] LABORATORYCLIA [id number] [address] [place] Platelets (Bld) [#/Vol] 319 10*3/uL Normal 150-400 [facility] Comment on above: Order Comment: Speci men Type: BLOOD SPECIMENOrdering Facility: [facility] Address: [address] [place] [address] Performed By: #### 5 7021-8 ####[facility] LABORATORYCLIA [id number] [place] [address] [place] RBC (Bld) [#/Vol] 3.21 10*6/uL Low 4.20-6.00 [facility] Comment on above: Order Comment: Speci men Type: BLOOD SPECIMENOrdering Facility: [facility] Address: [address] [place] [address] Performed By: #### 5 7021-8 ####[facility] LABORATORYCLIA [id number] [address] [place] WBC (Bld) [#/Vol] 7.67 10*3/uL Normal 3.70-11.00 [facility] Comment on above: Order Comment: Speci men Type: BLOOD SPECIMENOrdering Facility: [facility] Address: [address] [place] [address] Performed By: #### 5 7021-8 ####[facility] LABORATORYCLIA [id number] [address] [place] Basophils (Bld) [#/Vol] 0.04 10*3/uL Normal <0.11 [facility] Comment on above: Order Comment: Speci men Type: BLOOD SPECIMENOrdering Facility: [facility] Address: [address] [place] [address] Performed By: #### 5 7021-8 ####[facility] LABORATORYCLIA [id number] [address] Basophils/100 WBC (Bld) 0.5 % Normal [facility] Comment on above: Order Comment: Speci men Type: BLOOD SPECIMENOrdering Facility: [facility] Address: [address] [place] [address] Performed By: #### 5 7021-8 ####[facility] LABORATORYCLIA [id number] [address] Differential cell count method Nom (Bld) Auto Normal [facility] Comment on above: Order Comment: Speci men Type: BLOOD SPECIMENOrdering Facility: [facility] Address: [address] [place] [address] Performed By: #### 5 7021-8 ####[facility] LABORATORYCLIA [id number] [place] [address] [place] Eosinophils (Bld) [#/Vol] 0.19 10*3/uL Normal <0.46 [facility] Comment on above: Order Comment: Speci men Type: BLOOD SPECIMENOrdering Facility: [facility] Address: [address] [place] [address] Performed By: #### 5 7021-8 ####[facility] LABORATORYCLIA [id number] [address] [place] Eosinophils/100 WBC (Bld) 2.5 % Normal [facility] Comment on above: Order Comment: Speci men Type: BLOOD SPECIMENOrdering Facility: [facility] Address: [address] [place] [address] Performed By: #### 5 7021-8 ####[facility] LABORATORYCLIA [id number] [address] Erythrocyte distribution width (RBC) [Ratio] 17.2 % High 11.5-15.0 [facility] Comment on above: Order Comment: Speci men Type: BLOOD SPECIMENOrdering Facility: [facility] Address: [address] [place] [address] Performed By: #### 5 7021-8 ####[facility] LABORATORYCLIA [id number] [address] Hematocrit (Bld) [Volume fraction] 29.5 % Low 39.0-51.0 [facility] Comment on above: Order Comment: Speci men Type: BLOOD SPECIMENOrdering Facility: [facility] Address: [address] [place] [address] Performed By: #### 5 7021-8 ####[facility] LABORATORYCLIA [id number] [address] Hemoglobin (Bld) [Mass/Vol] 9.2 g/dL Low 13.0-17.0 [facility] Comment on above: Order Comment: Speci men Type: BLOOD SPECIMENOrdering Facility: [facility] Address: [address] [place] [address] Performed By: #### 5 7021-8 ####[facility] LABORATORYCLIA [id number] [address] IMMATURE GRAN % 0.4 % Normal [facility] Comment on above: Order Comment: Speci men Type: BLOOD SPECIMENOrdering Facility: [facility] Address: [address] [place] [address] Performed By: #### 5 7021-8 ####[facility] LABORATORYCLIA [id number] [address] IMMATURE GRAN ABS 0.03 k/uL Normal <0.10 [facility] Comment on above: Order Comment: Speci men Type: BLOOD SPECIMENOrdering Facility: [facility] Address: [address] [place] [address] Performed By: #### 5 7021-8 ####[facility] LABORATORYCLIA [id number] [address] Lymphocytes (Bld) [#/Vol] 1.50 10*3/uL Normal 1.00-4.00 [facility] Comment on above: Order Comment: Speci men Type: BLOOD SPECIMENOrdering Facility: [facility] Address: [address] [place] [address] Performed By: #### 5 7021-8 ####[facility] LABORATORYCLIA [id number] [address] Lymphocytes/100 WBC (Bld) 19.7 % Normal [facility] Comment on above: Order Comment: Speci men Type: BLOOD SPECIMENOrdering Facility: [facility] Address: [address] [place] [address] Performed By: #### 5 7021-8 ####[facility] LABORATORYCLIA [id number] [address] MCH (RBC) [Entitic mass] 28.3 pg Normal 26.0-34.0 [facility] Comment on above: Order Comment: Speci men Type: BLOOD SPECIMENOrdering Facility: [facility] Address: [address] [place] [address] Performed By: #### 5 7021-8 ####[facility] LABORATORYCLIA [id number] [address] MCHC (RBC) [Mass/Vol] 31.2 g/dL Normal 30.5-36.0 [facility] Comment on above: Order Comment: Speci men Type: BLOOD SPECIMENOrdering Facility: [facility] Address: [address] [place] [address] Performed By: #### 5 7021-8 ####[facility]ORATORYCLIA [id number] [address] [place] MCV (RBC) [Entitic vol] 90.8 fL Normal 80.0-100.0 [facility] Comment on above: Order Comment: Speci men Type: BLOOD SPECIMENOrdering Facility: [facility] Address: [address] [place] [address] Performed By: #### 5 7021-8 ####[facility]ORATORYCLIA [id number] [address] [place] Monocytes (Bld) [#/Vol] 0.49 10*3/uL Normal <0.87 [facility] Comment on above: Order Comment: Speci men Type: BLOOD SPECIMENOrdering Facility: [facility] Address: [address] [place] [address] Performed By: #### 5 7021-8 ####[facility] LABORATORYCLIA [id number] [address] Monocytes/100 WBC (Bld) 6.4 % Normal [facility] Comment on above: Order Comment: Speci men Type: BLOOD SPECIMENOrdering Facility: [facility] Address: [address] [place] [address] Performed By: #### 5 7021-8 ####[facility] LABORATORYCLIA [id number] [address] [place] Neutrophils (Bld) [#/Vol] 5.38 10*3/uL Normal 1.45-7.50 [facility] Comment on above: Order Comment: Speci men Type: BLOOD SPECIMENOrdering Facility: [facility] Address: [address] [place] [address] Performed By: #### 5 7021-8 ####[facility] LABORATORYCLIA [id number] [address] [place] Neutrophils/100 WBC (Bld) 70.5 % Normal [facility] Comment on above: Order Comment: Speci men Type: BLOOD SPECIMENOrdering Facility: [facility] Address: [address] Performed By: #### 5 7021-8 ####[facility] LABORATORYCLIA [id number] [address] Nucleated RBC (Bld) [#/Vol] 10*3/uL Normal <0.01 [facility] Comment on above: Order Comment: Speci men Type: BLOOD SPECIMENOrdering Facility: [facility] Address: [address] Performed By: #### 5 7021-8 ####[facility] LABORATORYCLIA [id number] [address] Nucleated RBC/100 WBC (Bld) [Ratio] 0.0 /100 WBC Normal [facility] Comment on above: Order Comment: Speci men Type: BLOOD SPECIMENOrdering Facility: [facility] Address: [address] [place] [address] Performed By: #### 5 7021-8 ####[facility] LABORATORYCLIA [id number] [address] STATES [facility] Platelet mean volume (Bld) [Entitic vol] 9.0 fL Normal 9.0-12.7 [facility] Comment on above: Order Comment: Speci men Type: BLOOD SPECIMENOrdering Facility: [facility] Address: [address] Performed By: #### 5 7021-8 ####[facility] LABORATORYCLIA [id number] [address] [place] [facility] Platelets (Bld) [#/Vol] 316 10*3/uL Normal 150-400 [facility] Comment on above: Order Comment: Speci men Type: BLOOD SPECIMENOrdering Facility: [facility] Address: [address] [place], [place] [address] Performed By: #### 5 7021-8 ####[facility] LABORATORYCLIA [id number] [place] [address] [place] RBC (Bld) [#/Vol] 3.25 10*6/uL Low 4.20-6.00 [facility] Comment on above: Order Comment: Speci men Type: BLOOD SPECIMENOrdering Facility: [facility] Address: [address] [place] [address] Performed By: #### 5 7021-8 ####[facility] LABORATORYCLIA [id number] [place] [address] [place] WBC (Bld) [#/Vol] 7.63 10*3/uL Normal 3.70-11.00 [facility] Comment on above: Order Comment: Speci men Type: BLOOD SPECIMENOrdering Facility: [facility] Address: [address] [place] [address] Performed By: #### 5 7021-8 ####[facility] LABORATORYCLIA [id number] [address] Basophils (Bld) [#/Vol] Normal <0.11 [facility] Comment on above: Order Comment: Speci men Type: BLOOD SPECIMENOrdering Facility: [facility] Address: [address] [place] [address] Result Comment: Carolina Owens RN informed lab after results autoverified that she rd on the wrong patient. Lab to credit. Nurse to redraw on correct patient.Corrected result: Previously reported as 0.04 k/uL on 08/16/2021 at 4:44 AM EDT. Performed By: #### 5 7021-8 ####[facility]ORATORYCLIA [id number] [address] [place] Basophils/100 WBC (Bld) Normal [facility] Comment on above: Order Comment: Speci men Type: BLOOD SPECIMENOrdering Facility: [facility] Address: [address] [place] [address] Result Comment: Tati ected result: Previously reported as 0.4 % on 08/16/2021 at 4:44 AM EDT. Performed By: #### 5 7021-8 ####[facility] LABORATORYCLIA [id number] [address] STATES OF [facility] CBC W Differential panel, method unspecified (Bld) Normal [facility] Comment on above: Order Comment: Speci francia Type: BLOOD SPECIMENOrdering Facility: [facility] Address: [address] [place] [address] Result Comment: Carolina Owens RN informed lab after results autoverified that she rd on the wrong patient. Lab to credit. Nurse to redraw on correct patient. Performed By: #### 5 7021-8 ####[facility] LABORATORYCLIA [id number] [address] Differential cell count method Nom (Bld) Normal [facility] Comment on above: Order Comment: Speccara francia Type: BLOOD SPECIMENOrdering Facility: [facility] Address: [address] [place] [address] Result Comment: Carolina Owens RN informed lab after results autoverified that she rd on the wrong patient. Lab to credit. Nurse to redraw on correct patient.Corrected result: Previously reported as Auto on 08/16/2021 at 4:44 AM EDT. Performed By: #### 5 7021-8 ####[facility]ORATORYCLIA [id number] [address] Eosinophils (Bld) [#/Vol] Normal <0.46 [facility] Comment on above: Order Comment: Speci francia Type: BLOOD SPECIMENOrdering Facility: [facility] Address: [address] [place] [address] Result Comment: Carolina Owens RN informed lab after results autoverified that she rd on the wrong patient. Lab to credit. Nurse to redraw on correct patient.Corrected result: Previously reported as 0.07 k/uL on 08/16/2021 at 4:44 AM EDT. Performed By: #### 5 7021-8 ####[facility] LABORATORYCLIA [id number] [address] [place] Eosinophils/100 WBC (Bld) Normal [facility] Comment on above: Order Comment: Speci francia Type: BLOOD SPECIMENOrdering Facility: [facility] Address: [address] [place] [address] Result Comment: Carolina Owens RN informed lab after results autoverified that she rd on the wrong patient. Lab to credit. Nurse to redraw on correct patient.Corrected result: Previously reported as 0.7 % on 08/16/2021 at 4:44 AM EDT. Performed By: #### 5 7021-8 ####[facility] LABORATORYCLIA [id number] [address] STATES OF [facility] Erythrocyte distribution width (RBC) [Ratio] Normal 11.5-15.0 [facility] Comment on above: Order Comment: Speccara feldman Type: BLOOD SPECIMENOrdering Facility: [facility] Address: [address] [place] [address] Result Comment: Carolina Owens RN informed lab after results autoverified that she rd on the wrong patient. Lab to credit. Nurse to redraw on correct patient.Corrected result: Previously reported as 14.2 % on 08/16/2021 at 4:44 AM EDT. Performed By: #### 5 7021-8 ####[facility]ORATORYCLIA [id number] [address] STATES OF [facility] Hematocrit (Bld) [Volume fraction] Normal 39.0-51.0 [facility] Comment on above: Order Comment: Speci francia Type: BLOOD SPECIMENOrdering Facility: [facility] Address: [address] [place] [address] Result Comment: Carolina Owens RN informed lab after results autoverified that she rd on the wrong patient. Lab to credit. Nurse to redraw on correct patient.Corrected result: Previously reported as 34.3 % on 08/16/2021 at 4:44 AM EDT. Performed By: #### 5 7021-8 ####[facility]ORATORYCLIA [id number] [address] [place] Hemoglobin (Bld) [Mass/Vol] Normal 13.0-17.0 [facility] Comment on above: Order Comment: Speci men Type: BLOOD SPECIMENOrdering Facility: [facility] Address: [address] [place] [address] Result Comment: Carolina Owens RN informed lab after results autoverified that she rd on the wrong patient. Lab to credit. Nurse to redraw on correct patient.Corrected result: Previously reported as 11.2 g/dL on 08/16/2021 at 4:44 AM EDT. Performed By: #### 5 7021-8 ####[facility]ORATORYCLIA [id number] [address] IMMATURE GRAN % Normal [facility] Comment on above: Order Comment: Speci men Type: BLOOD SPECIMENOrdering Facility: [facility] Address: [address] [place] [address] Result Comment: Carolina Owens RN informed lab after results autoverified that she rd on the wrong patient. Lab to credit. Nurse to redraw on correct patient.Corrected result: Previously reported as 0.8 % on 08/16/2021 at 4:44 AM EDT. Performed By: #### 5 7021-8 ####[facility]ORATORYCLIA [id number] [address] STATES OF [facility] IMMATURE GRAN ABS Normal <0.10 [facility] Comment on above: Order Comment: Speci men Type: BLOOD SPECIMENOrdering Facility: [facility] Address: [address] [place] [address] Result Comment: Tati ected result: Previously reported as 0.08 k/uL on 08/16/2021 at 4:44 AM EDT. Performed By: #### 5 7021-8 ####[facility] LABORATORYCLIA [id number] [place] [address] [place] Lymphocytes (Bld) [#/Vol] Normal 1.00-4.00 [facility] Comment on above: Order Comment: Speci men Type: BLOOD SPECIMENOrdering Facility: [facility] Address: [address] [place] [address] Result Comment: Carolina Owens RN informed lab after results autoverified that she rd on the wrong patient. Lab to credit. Nurse to redraw on correct patient.Corrected result: Previously reported as 1.17 k/uL on 08/16/2021 at 4:44 AM EDT. Performed By: #### 5 7021-8 ####[facility] LABORATORYCLIA [id number] [address] STATES [place] [facility] Lymphocytes/100 WBC (Bld) Normal [facility] Comment on above: Order Comment: Speci men Type: BLOOD SPECIMENOrdering Facility: [facility] Address: [address] [place] [address] Result Comment: Carolina Owens RN informed lab after results autoverified that she rd on the wrong patient. Lab to credit. Nurse to redraw on correct patient.Corrected result: Previously reported as 12.0 % on 08/16/2021 at 4:44 AM EDT. Performed By: #### 5 7021-8 ####[facility] LABORATORYCLIA [id number] [address] STATES [place] [facility] MCHC (RBC) [Mass/Vol] Normal 30.5-36.0 [facility] Comment on above: Order Comment: Speci men Type: BLOOD SPECIMENOrdering Facility: [facility] Address: [address] [place] [address] Result Comment: Carolina Owens RN informed lab after results autoverified that she rd on the wrong patient. Lab to credit. Nurse to redraw on correct patient.Corrected result: Previously reported as 32.7 g/dL on 08/16/2021 at 4:44 AM EDT. Performed By: #### 5 7021-8 ####[facility] LABORATORYCLIA [id number] [address] STATES [place] [facility] MCV (RBC) [Entitic vol] Normal 80.0-100.0 [facility] Comment on above: Order Comment: Speci men Type: BLOOD SPECIMENOrdering Facility: [facility] Address: [address] [place] [address] Result Comment: Carolina Owens RN informed lab after results autoverified that she rd on the wrong patient. Lab to credit. Nurse to redraw on correct patient.Corrected result: Previously reported as 94.2 fL on 08/16/2021 at 4:44 AM EDT. Performed By: #### 5 7021-8 ####[facility] LABORATORYCLIA [id number] [place] [address] [place] Monocytes (Bld) [#/Vol] Normal <0.87 [facility] Comment on above: Order Comment: Speci men Type: BLOOD SPECIMENOrdering Facility: [facility] Address: [address] [place] [address] Result Comment: Carolina Owens RN informed lab after results autoverified that she rd on the wrong patient. Lab to credit. Nurse to redraw on correct patient.Corrected result: Previously reported as 0.99 k/uL on 08/16/2021 at 4:44 AM EDT. Performed By: #### 5 7021-8 ####[facility]ORATORYCLIA [id number] [place] [address] [place] Monocytes/100 WBC (Bld) Normal [facility] Comment on above: Order Comment: Speci men Type: BLOOD SPECIMENOrdering Facility: [facility] Address: [address] [place] [address] Result Comment: Carolina Owens RN informed lab after results autoverified that she rd on the wrong patient. Lab to credit. Nurse to redraw on correct patient.Corrected result: Previously reported as 10.2 % on 08/16/2021 at 4:44 AM EDT. Performed By: #### 5 7021-8 ####[facility]ORATORYCLIA [id number] [place] [address] [place] Neutrophils (Bld) [#/Vol] Normal 1.45-7.50 [facility] Comment on above: Order Comment: Speci men Type: BLOOD SPECIMENOrdering Facility: [facility] Address: [address] [place] [address] Result Comment: Carolina Owens RN informed lab after results autoverified that she rd on the wrong patient. Lab to credit. Nurse to redraw on correct patient.Corrected result: Previously reported as 7.40 k/uL on 08/16/2021 at 4:44 AM EDT. Performed By: #### 5 7021-8 ####[facility] LABORATORYCLIA [id number] [address] OF [facility] Neutrophils/100 WBC (Bld) Normal [facility] Comment on above: Order Comment: Speci men Type: BLOOD SPECIMENOrdering Facility: [facility] Address: [address] [place] [address] Result Comment: Carolina Owens RN informed lab after results autoverified that she rd on the wrong patient. Lab to credit. Nurse to redraw on correct patient.Corrected result: Previously reported as 75.9 % on 08/16/2021 at 4:44 AM EDT. Performed By: #### 5 7021-8 ####[facility]ORATORYCLIA [id number] [address] OF [facility] Platelet mean volume (Bld) [Entitic vol] Normal 9.0-12.7 [facility] Comment on above: Order Comment: Speci francia Type: BLOOD SPECIMENOrdering Facility: [facility] Address: [address] [place] [address] Result Comment: Carolina Owens RN informed lab after results autoverified that she rd on the wrong patient. Lab to credit. Nurse to redraw on correct patient.Corrected result: Previously reported as 9.1 fL on 08/16/2021 at 4:44 AM EDT. Performed By: #### 5 7021-8 ####[facility]ORATORYCLIA [id number] [address] STATES [facility] Platelets (Bld) [#/Vol] Normal 150-400 [facility] Comment on above: Order Comment: Speci men Type: BLOOD SPECIMENOrdering Facility: [facility] Address: [address] [place] [address] Result Comment: Carolina Owens RN informed lab after results autoverified that she rd on the wrong patient. Lab to credit. Nurse to redraw on correct patient.Corrected result: Previously reported as 338 k/uL on 08/16/2021 at 4:44 AM EDT. Performed By: #### 5 7021-8 ####[facility]ORATORYCLIA [id number] [address] OF [facility] RBC (Bld) [#/Vol] Normal 4.20-6.00 [facility] Comment on above: Order Comment: Speci men Type: BLOOD SPECIMENOrdering Facility: [facility] Address: [address] [place] [address] Result Comment: Carolina Owens RN informed lab after results autoverified that she rd on the wrong patient. Lab to credit. Nurse to redraw on correct patient.Corrected result: Previously reported as 3.64 m/uL on 08/16/2021 at 4:44 AM EDT. Performed By: #### 5 7021-8 ####[facility]ORATORYCLIA [id number] [address] WBC (Bld) [#/Vol] Normal 3.70-11.00 [facility] Comment on above: Order Comment: Speci francia Type: BLOOD SPECIMENOrdering Facility: [facility] Address: [address] [place] [address] Result Comment: Carolina Owens RN informed lab after results autoverified that she rd on the wrong patient. Lab to credit. Nurse to redraw on correct patient.Corrected result: Previously reported as 9.75 k/uL on 08/16/2021 at 4:44 AM EDT. Performed By: #### 5 7021-8 ####[facility]ORATORYCLIA [id number] [address] CONSULT PROGon 08-16-2021 CONSULT PROG Normal [facility] Magnesium SerPl-mCncon 08-16 Magnesium [Mass/Vol] 1.8 mg/dL Normal 1.7-2.3 [facility] Comment on above: Order Comment: Speci men Type: BLOOD SPECIMENOrdering Facility: [facility] Address: [address] [address] Performed By: #### 2 4321-2, 01043-1 ####[facility] LABORATORYCLIA [id number] [place] [address] [place] NURSING PROGon 08-16-2021 NURSING PROG Normal [facility] Basic metabolic 2000 panelon 08-15-2021 Anion gap [Moles/Vol] 13 mmol/L Normal 9-18 [facility] Comment on above: Order Comment: Speci men Type: BLOOD SPECIMENOrdering Facility: [facility] Address: [address] [place] [address] Performed By: #### 2 4321-2 ####[facility] LABORATORYCLIA [id number] [place] [address] [place] Calcium [Mass/Vol] 9.0 mg/dL Normal 8.5-10.2 [facility] Comment on above: Order Comment: Speci men Type: BLOOD SPECIMENOrdering Facility: [facility] Address: [address] [place] [address] Performed By: #### 2 4321-2 ####[facility]ORATORYCLIA [id number] [place] [address] [place] Chloride [Moles/Vol] 95 mmol/L Low 97-105 [facility] Comment on above: Order Comment: Speci men Type: BLOOD SPECIMENOrdering Facility: [facility] Address: [address] [place] [address] Performed By: #### 2 4321-2 ####[facility]ORATORYCLIA [id number] [place] [address] [place] CO2 [Moles/Vol] 28 mmol/L Normal 22-30 [facility] Comment on above: Order Comment: Speci men Type: BLOOD SPECIMENOrdering Facility: [facility] Address: [address] [place] [address] Performed By: #### 2 4321-2 ####[facility]ORATORYCLIA [id number] [address] [place] Creatinine [Mass/Vol] 0.50 mg/dL Low 0.73-1.22 [facility] Comment on above: Order Comment: Shira feldman Type: BLOOD SPECIMENOrdering Facility: [facility] Address: [address] [address] Performed By: #### 2 4321-2 ####[facility] LABORATORYIA [id number] [address] ESTIMATED GLOMERULAR FILTRATION RATE 110 mL/min/1.73m??? Normal >=60 [facility] Comment on above: Order Comment: Shira feldman Type: BLOOD SPECIMENOrdering Facility: [facility] Address: [address] [place] [address] Result Comment: Luzmaria mated Glomerular Filtration Rate [...] #### 2 4321-2 ####[facility]NAPOLISIA [id number] [address] [place] Glucose [Mass/Vol] 106 mg/dL High 74-99 [facility] Comment on above: Order Comment: Shira feldman Type: BLOOD SPECIMENOrdering Facility: [facility] Address: [address] [place] [address] Result Comment: The [place] [employer] (ADA) provides guidance for cutoff [...] Standards of Medical Care in Diabetes 2016, [place] [employer]. Diabetes Care. 2016.39(Suppl 1). Performed By: #### 2 4321-2 ####[facility] LABORATORYCLIA [id number] [address] STATES OF [facility] Potassium [Moles/Vol] 3.3 mmol/L Low 3.7-5.1 [facility] Comment on above: Order Comment: Speci men Type: BLOOD SPECIMENOrdering Facility: [facility] Address: [address] [place] [address] Performed By: #### 2 4321-2 ####[facility]ORATORYCLIA [id number] [address] STATES [facility] Sodium [Moles/Vol] 136 mmol/L Normal 136-144 [facility] Comment on above: Order Comment: Speci men Type: BLOOD SPECIMENOrdering Facility: [facility] Address: [address] [place] [address] Performed By: #### 2 4321-2 ####[facility]ORATORYCLIA [id number] [address] STATES [facility] Urea nitrogen [Mass/Vol] 11 mg/dL Normal 9-24 [facility] Comment on above: Order Comment: Speci men Type: BLOOD SPECIMENOrdering Facility: [facility] Address: [address] [place] [address] Performed By: #### 2 4321-2 ####[facility] LABORATORYCLIA [id number] [address] [place] CASE MANAGEMon 08-15-2021 CASE MANAGEM Normal [facility] CBC W Auto Differential pane l (Bld)on 08-15-2021 Basophils (Bld) [#/Vol] 0.03 10*3/uL Normal <0.11 [facility] Comment on above: Order Comment: Speci men Type: BLOOD SPECIMENOrdering Facility: [facility] Address: [address] [place] [address] Performed By: #### 5 7021-8 ####[facility]ORATORYCLIA [id number] [address] [place] Basophils/100 WBC (Bld) 0.4 % Normal [facility] Comment on above: Order Comment: Speci men Type: BLOOD SPECIMENOrdering Facility: [facility] Address: [address] [place] [address] Performed By: #### 5 7021-8 ####[facility]ORATORYCLIA [id number] [address] Differential cell count method Nom (Bld) Auto Normal [facility] Comment on above: Order Comment: Speci men Type: BLOOD SPECIMENOrdering Facility: [facility] Address: [address] [place] [address] Performed By: #### 5 7021-8 ####[facility]ORATORYCLIA [id number] [address] [place] Eosinophils (Bld) [#/Vol] 0.20 10*3/uL Normal <0.46 [facility] Comment on above: Order Comment: Speci men Type: BLOOD SPECIMENOrdering Facility: [facility] Address: [address] [place] [address] Performed By: #### 5 7021-8 ####[facility]ATORYCLIA [id number] [address] [place] Eosinophils/100 WBC (Bld) 2.5 % Normal [facility] Comment on above: Order Comment: Speci men Type: BLOOD SPECIMENOrdering Facility: [facility] Address: [address] [place] [address] Performed By: #### 5 7021-8 ####[facility]ORATORYCLIA [id number] [address] Erythrocyte distribution width (RBC) [Ratio] 16.7 % High 11.5-15.0 [facility] Comment on above: Order Comment: Speci men Type: BLOOD SPECIMENOrdering Facility: [facility] Address: [address] [place] [address] Performed By: #### 5 7021-8 ####[facility] LABORATORYCLIA [id number] [address] Hematocrit (Bld) [Volume fraction] 30.3 % Low 39.0-51.0 [facility] Comment on above: Order Comment: Speci men Type: BLOOD SPECIMENOrdering Facility: [facility] Address: [address] [place] [address] Performed By: #### 5 7021-8 ####[facility]ORATORYCLIA [id number] [address] Hemoglobin (Bld) [Mass/Vol] 9.4 g/dL Low 13.0-17.0 [facility] Comment on above: Order Comment: Speci men Type: BLOOD SPECIMENOrdering Facility: [facility] Address: [address] [place] [address] Performed By: #### 5 7021-8 ####[facility]ORATORYCLIA [id number] [address] IMMATURE GRAN % 0.4 % Normal [facility] Comment on above: Order Comment: Speci men Type: BLOOD SPECIMENOrdering Facility: [facility] Address: [address] [place] [address] Performed By: #### 5 7021-8 ####[facility]ORATORYCLIA [id number] [address] IMMATURE GRAN ABS 0.03 k/uL Normal <0.10 [facility] Comment on above: Order Comment: Speci men Type: BLOOD SPECIMENOrdering Facility: [facility] Address: [address] [place] [address] Performed By: #### 5 7021-8 ####[facility] LABORATORYCLIA [id number] [address] Lymphocytes (Bld) [#/Vol] 1.50 10*3/uL Normal 1.00-4.00 [facility] Comment on above: Order Comment: Speci men Type: BLOOD SPECIMENOrdering Facility: [facility] Address: [address] [place] [address] Performed By: #### 5 7021-8 ####[facility] LABORATORYCLIA [id number] [address] Lymphocytes/100 WBC (Bld) 18.5 % Normal [facility] Comment on above: Order Comment: Speci men Type: BLOOD SPECIMENOrdering Facility: [facility] Address: [address] [place] [address] Performed By: #### 5 7021-8 ####[facility] LABORATORYCLIA [id number] [address] MCH (RBC) [Entitic mass] 29.0 pg Normal 26.0-34.0 [facility] Comment on above: Order Comment: Speci men Type: BLOOD SPECIMENOrdering Facility: [facility] Address: [address] [place] [address] Performed By: #### 5 7021-8 ####[facility] LABORATORYCLIA [id number] [address] [place] [facility] MCHC (RBC) [Mass/Vol] 31.0 g/dL Normal 30.5-36.0 [facility] Comment on above: Order Comment: Speci men Type: BLOOD SPECIMENOrdering Facility: [facility] Address: [address] [place] [address] Performed By: #### 5 7021-8 ####[facility] LABORATORYCLIA [id number] [address] [place] [facility] MCV (RBC) [Entitic vol] 93.5 fL Normal 80.0-100.0 [facility] Comment on above: Order Comment: Speci men Type: BLOOD SPECIMENOrdering Facility: [facility] Address: [address] [place] [address] Performed By: #### 5 7021-8 ####[facility] LABORATORYCLIA [id number] [place] [address] [place] Monocytes (Bld) [#/Vol] 0.47 10*3/uL Normal <0.87 [facility] Comment on above: Order Comment: Speci men Type: BLOOD SPECIMENOrdering Facility: [facility] Address: [address] [place] [address] Performed By: #### 5 7021-8 ####[facility] LABORATORYCLIA [id number] [address] [place] Monocytes/100 WBC (Bld) 5.8 % Normal [facility] Comment on above: Order Comment: Speci men Type: BLOOD SPECIMENOrdering Facility: [facility] Address: [address] [place] [address] Performed By: #### 5 7021-8 ####[facility] LABORATORYCLIA [id number] [address] [place] Neutrophils (Bld) [#/Vol] 5.87 10*3/uL Normal 1.45-7.50 [facility] Comment on above: Order Comment: Speci men Type: BLOOD SPECIMENOrdering Facility: [facility] Address: [address] [place] [address] Performed By: #### 5 7021-8 ####[facility] LABORATORYCLIA [id number] [address] [place] Neutrophils/100 WBC (Bld) 72.4 % Normal [facility] Comment on above: Order Comment: Speci men Type: BLOOD SPECIMENOrdering Facility: [facility] Address: [address] [place] [address] Performed By: #### 5 7021-8 ####[facility] LABORATORYCLIA [id number] [place] [address] [place] Nucleated RBC (Bld) [#/Vol] 10*3/uL Normal <0.01 [facility] Comment on above: Order Comment: Speci men Type: BLOOD SPECIMENOrdering Facility: [facility] Address: [address] [place] [address] Performed By: #### 5 7021-8 ####[facility] LABORATORYCLIA [id number] [address] [place] Nucleated RBC/100 WBC (Bld) [Ratio] 0.0 /100 WBC Normal [facility] Comment on above: Order Comment: Speci men Type: BLOOD SPECIMENOrdering Facility: [facility] Address: [address] [place] [address] Performed By: #### 5 7021-8 ####[facility] LABORATORYCLIA [id number] [address] [place] Platelet mean volume (Bld) [Entitic vol] 9.4 fL Normal 9.0-12.7 [facility] Comment on above: Order Comment: Speci men Type: BLOOD SPECIMENOrdering Facility: [facility] Address: [address] [place] [address] Performed By: #### 5 7021-8 ####[facility] LABORATORYCLIA [id number] [address] Platelets (Bld) [#/Vol] 290 10*3/uL Normal 150-400 [facility] Comment on above: Order Comment: Speci men Type: BLOOD SPECIMENOrdering Facility: [facility] Address: [address] [place] [address] Performed By: #### 5 7021-8 ####[facility] LABORATORYCLIA [id number] [address] [place] RBC (Bld) [#/Vol] 3.24 10*6/uL Low 4.20-6.00 [facility] Comment on above: Order Comment: Speci men Type: BLOOD SPECIMENOrdering Facility: [facility] Address: [address] [place] [address] Performed By: #### 5 7021-8 ####[facility]ORATORYCLIA [id number] [address] [place] WBC (Bld) [#/Vol] 8.10 10*3/uL Normal 3.70-11.00 [facility] Comment on above: Order Comment: Speci men Type: BLOOD SPECIMENOrdering Facility: [facility] Address: [address] [place] [address] Performed By: #### 5 7021-8 ####[facility] LABORATORYCLIA [id number] [place] [address] [place] THERAPY NTon 08-15-2021 THERAPY NT Normal [facility] THERAPY NT Normal [facility] THERAPY NT Normal [facility] Basic metabolic 2000 panelon 08-14-2021 Anion gap [Moles/Vol] 10 mmol/L Normal 9-18 [facility] Comment on above: Order Comment: Speci men Type: BLOOD SPECIMENOrdering Facility: [facility] Address: [address] [place] [address] Performed By: #### 2 4321-2 ####[facility] LABORATORYCLIA [id number] [place] [address] [place] Calcium [Mass/Vol] 8.8 mg/dL Normal 8.5-10.2 [facility] Comment on above: Order Comment: Speci men Type: BLOOD SPECIMENOrdering Facility: [facility] Address: [address] [place] [address] Performed By: #### 2 4321-2 ####[facility] LABORATORYCLIA [id number] [place] [address] [place] Chloride [Moles/Vol] 92 mmol/L Low 97-105 [facility] Comment on above: Order Comment: Speci men Type: BLOOD SPECIMENOrdering Facility: [facility] Address: [address] [place] [address] Performed By: #### 2 4321-2 ####[facility] LABORATORYCLIA [id number] [place] [address] [place] CO2 [Moles/Vol] 29 mmol/L Normal 22-30 [facility] Comment on above: Order Comment: Speci men Type: BLOOD SPECIMENOrdering Facility: [facility] Address: [address] [place] [address] Performed By: #### 2 4321-2 ####[facility] LABORATORYCLIA [id number] [place] [id number] [place] [facility] Creatinine [Mass/Vol] 0.49 mg/dL Low 0.73-1.22 [facility] Comment on above: Order Comment: Shira francia Type: BLOOD SPECIMENOrdering Facility: [facility] Address: [address] [place] [address] Performed By: #### 2 4321-2 ####[facility] LABORATORYCLIA [id number] [address] ESTIMATED GLOMERULAR FILTRATION RATE 111 mL/min/1.73m??? Normal >=60 [facility] Comment on above: Order Comment: Shira feldman Type: BLOOD SPECIMENOrdering Facility: [facility] Address: [address] [place] [address] Result Comment: Luzmaria mated Glomerular Filtration Rate [...] Performed By: #### 2 4321-2 ####[facility]ORATORYCLIA [id number] [address] Glucose [Mass/Vol] 104 mg/dL High 74-99 [facility] Comment on above: Order Comment: Johncara feldman Type: BLOOD SPECIMENOrdering Facility: [facility] Address: [address] [place] [address] Result Comment: The [place] [employer] (ADA) provides guidance for cutoff [...] Standards of Medical Care in Diabetes 2016, [place] [employer]. Diabetes Care. 2016.39(Suppl 1). Performed By: #### 2 4321-2 ####[facility] LABORATORYCLIA [id number] [address] [place] Potassium [Moles/Vol] 3.1 mmol/L Low 3.7-5.1 [facility] Comment on above: Order Comment: Speci men Type: BLOOD SPECIMENOrdering Facility: [facility] Address: [address] [place] [address] Performed By: #### 2 4321-2 ####[facility]ORATORYCLIA [id number] [address] [place] [facility] Sodium [Moles/Vol] 131 mmol/L Low 136-144 [facility] Comment on above: Order Comment: Speci men Type: BLOOD SPECIMENOrdering Facility: [facility] Address: [address] [place] [address] Performed By: #### 2 4321-2 ####[facility]ORATORYCLIA [id number] [address] [place] [facility] Urea nitrogen [Mass/Vol] 13 mg/dL Normal 9-24 [facility] Comment on above: Order Comment: Speci men Type: BLOOD SPECIMENOrdering Facility: [facility] Address: [address] [address] Performed By: #### 2 4321-2 ####[facility] LABORATORYCLIA [id number] [place] [address] [place] CBC W Auto Differential pane l (Bld)on 08-14-2021 Basophils (Bld) [#/Vol] 10*3/uL Normal <0.11 [facility] Comment on above: Order Comment: Speci men Type: BLOOD SPECIMENOrdering Facility: [facility] Address: [address] [address] Performed By: #### 5 7021-8 ####[facility]ORATORYCLIA [id number] [address] [place] [facility] Basophils/100 WBC (Bld) 0.2 % Normal [facility] Comment on above: Order Comment: Speci men Type: BLOOD SPECIMENOrdering Facility: [facility] Address: [address] [place] [address] Performed By: #### 5 7021-8 ####[facility]ORATORYCLIA [id number] [address] [place] Differential cell count method Nom (Bld) Auto Normal [facility] Comment on above: Order Comment: Speci men Type: BLOOD SPECIMENOrdering Facility: [facility] Address: [address] [place] [address] Performed By: #### 5 7021-8 ####[facility]ORATORYCLIA [id number] [address] [place] Eosinophils (Bld) [#/Vol] 0.23 10*3/uL Normal <0.46 [facility] Comment on above: Order Comment: Speci men Type: BLOOD SPECIMENOrdering Facility: [facility] Address: [address] [place] [address] Performed By: #### 5 7021-8 ####[facility]ORATORYCLIA [id number] [address] Eosinophils/100 WBC (Bld) 2.7 % Normal [facility] Comment on above: Order Comment: Speci men Type: BLOOD SPECIMENOrdering Facility: [facility] Address: [address] [place] [address] Performed By: #### 5 7021-8 ####[facility]ORATORYCLIA [id number] [address] [place] Erythrocyte distribution width (RBC) [Ratio] 16.6 % High 11.5-15.0 [facility] Comment on above: Order Comment: Speci men Type: BLOOD SPECIMENOrdering Facility: [facility] Address: [address] [address] Performed By: #### 5 7021-8 ####[facility]ORATORYCLIA [id number] [address] Hematocrit (Bld) [Volume fraction] 28.6 % Low 39.0-51.0 [facility] Comment on above: Order Comment: Speci men Type: BLOOD SPECIMENOrdering Facility: [facility] Address: [address] [place] [address] Performed By: #### 5 7021-8 ####[facility]ORATORYCLIA [id number] [address] Hemoglobin (Bld) [Mass/Vol] 9.0 g/dL Low 13.0-17.0 [facility] Comment on above: Order Comment: Speci men Type: BLOOD SPECIMENOrdering Facility: [facility] Address: [address] [place] [address] Performed By: #### 5 7021-8 ####[facility]ORATORYCLIA [id number] [address] IMMATURE GRAN % 0.2 % Normal [facility] Comment on above: Order Comment: Speci men Type: BLOOD SPECIMENOrdering Facility: [facility] Address: [address] [place] [address] Performed By: #### 5 7021-8 ####[facility]ORATORYCLIA [id number] [address] IMMATURE GRAN ABS <0.03 Normal <0.10 [facility] Comment on above: Order Comment: Speci men Type: BLOOD SPECIMENOrdering Facility: [facility] Address: [address] [place] [address] Performed By: #### 5 7021-8 ####[facility]ORATORYCLIA [id number] [address] [place] Lymphocytes (Bld) [#/Vol] 1.33 10*3/uL Normal 1.00-4.00 [facility] Comment on above: Order Comment: Speci men Type: BLOOD SPECIMENOrdering Facility: [facility] Address: [address] [place] [address] Performed By: #### 5 7021-8 ####[facility]ORATORYCLIA [id number] [address] Lymphocytes/100 WBC (Bld) 15.6 % Normal [facility] Comment on above: Order Comment: Speci men Type: BLOOD SPECIMENOrdering Facility: [facility] Address: [address] [place] [address] Performed By: #### 5 7021-8 ####[facility]ORATORYCLIA [id number] [address] MCH (RBC) [Entitic mass] 29.0 pg Normal 26.0-34.0 [facility] Comment on above: Order Comment: Speci men Type: BLOOD SPECIMENOrdering Facility: [facility] Address: [address] [place] [address] Performed By: #### 5 7021-8 ####[facility]ORATORYCLIA [id number] [address] MCHC (RBC) [Mass/Vol] 31.5 g/dL Normal 30.5-36.0 [facility] Comment on above: Order Comment: Speci men Type: BLOOD SPECIMENOrdering Facility: [facility] Address: [address] [place] [address] Performed By: #### 5 7021-8 ####[facility]ORATORYCLIA [id number] [address] MCV (RBC) [Entitic vol] 92.3 fL Normal 80.0-100.0 [facility] Comment on above: Order Comment: Speci men Type: BLOOD SPECIMENOrdering Facility: [facility] Address: [address] [place] [address] Performed By: #### 5 7021-8 ####[facility]ORATORYCLIA [id number] [place] [address] [place] Monocytes (Bld) [#/Vol] 0.44 10*3/uL Normal <0.87 [facility] Comment on above: Order Comment: Speci men Type: BLOOD SPECIMENOrdering Facility: [facility] Address: [address] [address] Performed By: #### 5 7021-8 ####[facility]ORATORYCLIA [id number] [place] [address] [place] Monocytes/100 WBC (Bld) 5.2 % Normal [facility] Comment on above: Order Comment: Speci men Type: BLOOD SPECIMENOrdering Facility: [facility] Address: [address] [place] [address] Performed By: #### 5 7021-8 ####[facility]ORATORYCLIA [id number] [address] [place] Neutrophils (Bld) [#/Vol] 6.46 10*3/uL Normal 1.45-7.50 [facility] Comment on above: Order Comment: Speci men Type: BLOOD SPECIMENOrdering Facility: [facility] Address: [address] [place] [address] Performed By: #### 5 7021-8 ####[facility]ORATORYCLIA [id number] [address] [place] Neutrophils/100 WBC (Bld) 76.1 % Normal [facility] Comment on above: Order Comment: Speci men Type: BLOOD SPECIMENOrdering Facility: [facility] Address: [address] [address] Performed By: #### 5 7021-8 ####[facility]ORATORYCLIA [id number] [place] [address] [place] Nucleated RBC (Bld) [#/Vol] 10*3/uL Normal <0.01 [facility] Comment on above: Order Comment: Speci men Type: BLOOD SPECIMENOrdering Facility: [facility] Address: [facility] [address] Performed By: #### 5 7021-8 ####[facility]ORATORYCLIA [id number] [address] [place] Nucleated RBC/100 WBC (Bld) [Ratio] 0.0 /100 WBC Normal [facility] Comment on above: Order Comment: Speci men Type: BLOOD SPECIMENOrdering Facility: [facility] Address: [address] [place] [address] Performed By: #### 5 7021-8 ####[facility]ORATORYCLIA [id number] [address] [place] Platelet mean volume (Bld) [Entitic vol] 9.5 fL Normal 9.0-12.7 [facility] Comment on above: Order Comment: Speci men Type: BLOOD SPECIMENOrdering Facility: [facility] Address: [address] [place] [address] Performed By: #### 5 7021-8 ####[facility]ORATORYCLIA [id number] [address] [place] Platelets (Bld) [#/Vol] 247 10*3/uL Normal 150-400 [facility] Comment on above: Order Comment: Speci men Type: BLOOD SPECIMENOrdering Facility: [facility] Address: [address] [place] [address] Performed By: #### 5 7021-8 ####[facility]ORATORYCLIA [id number] [address] [place] RBC (Bld) [#/Vol] 3.10 10*6/uL Low 4.20-6.00 [facility] Comment on above: Order Comment: Speci men Type: BLOOD SPECIMENOrdering Facility: [facility] Address: [address] [place] [address] Performed By: #### 5 7021-8 ####[facility]ORATORYCLIA [id number] [address] [place] WBC (Bld) [#/Vol] 8.50 10*3/uL Normal 3.70-11.00 [facility] Comment on above: Order Comment: Speci men Type: BLOOD SPECIMENOrdering Facility: [facility] Address: [address] [place] [address] Performed By: #### 5 7021-8 ####[facility]ORATORYCLIA [id number] [place] [address] [place] CONSULTon 08-14-2021 CONSULT Normal [facility] NURSING PROGon 08-14-2021 NURSING PROG Normal [facility] CBC W Auto Differential pane l (Bld)on 08-13-2021 Basophils (Bld) [#/Vol] 10*3/uL Normal <0.11 [facility] Comment on above: Order Comment: Speci men Type: BLOOD SPECIMENOrdering Facility: [facility] Address: [address] [place] [address] Performed By: #### 5 7021-8 ####[facility]ORATORYCLIA [id number] [place] [address] [place] Basophils/100 WBC (Bld) 0.2 % Normal [facility] Comment on above: Order Comment: Speci men Type: BLOOD SPECIMENOrdering Facility: [facility] Address: [address] [place] [address] Performed By: #### 5 7021-8 ####[facility]ATORYCLIA [id number] [address] [place] Differential cell count method Nom (Bld) Auto Normal [facility] Comment on above: Order Comment: Speci men Type: BLOOD SPECIMENOrdering Facility: [facility] Address: [address] [place] [address] Performed By: #### 5 7021-8 ####[facility]ORATORYCLIA [id number] [place] [address] [place] Eosinophils (Bld) [#/Vol] 0.31 10*3/uL Normal <0.46 [facility] Comment on above: Order Comment: Speci men Type: BLOOD SPECIMENOrdering Facility: [facility] Address: [address] [address] Performed By: #### 5 7021-8 ####[facility]ORATORYCLIA [id number] [address] Eosinophils/100 WBC (Bld) 3.7 % Normal [facility] Comment on above: Order Comment: Speci men Type: BLOOD SPECIMENOrdering Facility: [facility] Address: [address] [place] [address] Performed By: #### 5 7021-8 ####[facility]ORATORYCLIA [id number] [address] Erythrocyte distribution width (RBC) [Ratio] 16.6 % High 11.5-15.0 [facility] Comment on above: Order Comment: Speci men Type: BLOOD SPECIMENOrdering Facility: [facility] Address: [address] [place] [address] Performed By: #### 5 7021-8 ####[facility]ORATORYCLIA [id number] [address] Hematocrit (Bld) [Volume fraction] 27.5 % Low 39.0-51.0 [facility] Comment on above: Order Comment: Speci men Type: BLOOD SPECIMENOrdering Facility: [facility] Address: [address] [place] [address] Performed By: #### 5 7021-8 ####[facility]ATORYCLIA [id number] [address] [place] Hemoglobin (Bld) [Mass/Vol] 8.4 g/dL Low 13.0-17.0 [facility] Comment on above: Order Comment: Speci men Type: BLOOD SPECIMENOrdering Facility: [facility] Address: [address] [place] [address] Performed By: #### 5 7021-8 ####[facility]ATORYCLIA [id number] [address] [place] IMMATURE GRAN % 0.5 % Normal [facility] Comment on above: Order Comment: Speci men Type: BLOOD SPECIMENOrdering Facility: [facility] Address: [address] [place] [address] Performed By: #### 5 7021-8 ####[facility]ATORYCLIA [id number] [address] IMMATURE GRAN ABS 0.04 k/uL Normal <0.10 [facility] Comment on above: Order Comment: Speci men Type: BLOOD SPECIMENOrdering Facility: [facility] Address: [address] [place] [address] Performed By: #### 5 7021-8 ####[facility]ATORYCLIA [id number] [address] Lymphocytes (Bld) [#/Vol] 1.55 10*3/uL Normal 1.00-4.00 [facility] Comment on above: Order Comment: Speci men Type: BLOOD SPECIMENOrdering Facility: [facility] Address: [address] [place] [address] Performed By: #### 5 7021-8 ####[facility] LABORATORYCLIA [id number] [address] Lymphocytes/100 WBC (Bld) 18.7 % Normal [facility] Comment on above: Order Comment: Speci men Type: BLOOD SPECIMENOrdering Facility: [facility] Address: [address] [place] [address] Performed By: #### 5 7021-8 ####[facility] LABORATORYCLIA [id number] [address] MCH (RBC) [Entitic mass] 28.9 pg Normal 26.0-34.0 [facility] Comment on above: Order Comment: Speci men Type: BLOOD SPECIMENOrdering Facility: [facility] Address: [address] [place] [address] Performed By: #### 5 7021-8 ####[facility] LABORATORYCLIA [id number] [place] [address] [place] MCHC (RBC) [Mass/Vol] 30.5 g/dL Normal 30.5-36.0 [facility] Comment on above: Order Comment: Speci men Type: BLOOD SPECIMENOrdering Facility: [facility] [facility] Address: [address] [place] [address] Performed By: #### 5 7021-8 ####[facility] LABORATORYCLIA [id number] [address] [place] MCV (RBC) [Entitic vol] 94.5 fL Normal 80.0-100.0 [facility] Comment on above: Order Comment: Speci men Type: BLOOD SPECIMENOrdering Facility: [facility] Address: [address] [place] [address] Performed By: #### 5 7021-8 ####[facility] LABORATORYCLIA [id number] [address] [place] Monocytes (Bld) [#/Vol] 0.47 10*3/uL Normal <0.87 [facility] Comment on above: Order Comment: Speci men Type: BLOOD SPECIMENOrdering Facility: [facility] Address: [address] [place] [address] Performed By: #### 5 7021-8 ####[facility] LABORATORYCLIA [id number] [address] [place] Monocytes/100 WBC (Bld) 5.7 % Normal [facility] Comment on above: Order Comment: Speci men Type: BLOOD SPECIMENOrdering Facility: [facility] Address: [address] [place] [address] Performed By: #### 5 7021-8 ####[facility] LABORATORYCLIA [id number] [place] [address] [place] Neutrophils (Bld) [#/Vol] 5.92 10*3/uL Normal 1.45-7.50 [facility] Comment on above: Order Comment: Speci men Type: BLOOD SPECIMENOrdering Facility: [facility] Address: [address] [place] [address] Performed By: #### 5 7021-8 ####[facility] LABORATORYCLIA [id number] [address] Neutrophils/100 WBC (Bld) 71.2 % Normal [facility] Comment on above: Order Comment: Speci men Type: BLOOD SPECIMENOrdering Facility: [facility] Address: [address] [place] [address] Performed By: #### 5 7021-8 ####[facility] LABORATORYCLIA [id number] [address] [place] Nucleated RBC (Bld) [#/Vol] 10*3/uL Normal <0.01 [facility] Comment on above: Order Comment: Speci men Type: BLOOD SPECIMENOrdering Facility: [facility] Address: [address] [place] [address] Performed By: #### 5 7021-8 ####[facility] LABORATORYCLIA [id number] [address] Nucleated RBC/100 WBC (Bld) [Ratio] 0.0 /100 WBC Normal [facility] Comment on above: Order Comment: Speci men Type: BLOOD SPECIMENOrdering Facility: [facility] Address: [address] [place] [address] Performed By: #### 5 7021-8 ####[facility] LABORATORYCLIA [id number] [address] [place] Platelet mean volume (Bld) [Entitic vol] 9.9 fL Normal 9.0-12.7 [facility] Comment on above: Order Comment: Speci men Type: BLOOD SPECIMENOrdering Facility: [facility] Address: [address] [place] [address] Performed By: #### 5 7021-8 ####[facility] LABORATORYCLIA [id number] [address] [place] Platelets (Bld) [#/Vol] 203 10*3/uL Normal 150-400 [facility] Comment on above: Order Comment: Speci men Type: BLOOD SPECIMENOrdering Facility: [facility] Address: [address] [place] [address] Performed By: #### 5 7021-8 ####[facility] LABORATORYCLIA [id number] [address] RBC (Bld) [#/Vol] 2.91 10*6/uL Low 4.20-6.00 [facility] Comment on above: Order Comment: Speci men Type: BLOOD SPECIMENOrdering Facility: [facility] Address: [address] [place] [address] Performed By: #### 5 7021-8 ####[facility] LABORATORYCLIA [id number] [address] WBC (Bld) [#/Vol] 8.31 10*3/uL Normal 3.70-11.00 [facility] Comment on above: Order Comment: Speci men Type: BLOOD SPECIMENOrdering Facility: [facility] Address: [address] [place] [address] Performed By: #### 5 7021-8 ####[facility] LABORATORYCLIA [id number] [address] aPTT PPPon 08-13-2021 aPTT Coag (PPP) [Time] 69.7 s High 23.0-32.[address] [place] Comment on above: Order Comment: Speci men Type: BLOOD SPECIMENOrdering Facility: [facility] Address: [address] [place] [address] Performed By: #### 1 4979-9 ####[facility] LABORATORYCLIA [id number] [address] aPTT Coag (PPP) [Time] 70.6 s High 23.0-32.[address] [place] Comment on above: Order Comment: Speci men Type: BLOOD SPECIMENOrdering Facility: [facility] Address: [address] [place] [address] Performed By: #### 1 4979 ####[facility] HOSPITALCLIA [id number] [place] [address] [place] ALLIED HEALTHon 08-12-2021 ALLIED HEALTH Normal [facility] ALLIED HEALTH Normal [facility] Basic metabolic 2000 panelon 08-12-2021 Anion gap [Moles/Vol] 7 mmol/L Low 9-18 [facility] Comment on above: Order Comment: Speci men Type: BLOOD SPECIMENOrdering Facility: [facility] Address: [address] [place] [address] Performed By: #### 2 4321-2, , 2776-05 ####[facility] LABORATORYCLIA [id number] [place] [address] [place] Calcium [Mass/Vol] 8.8 mg/dL Normal 8.5-10.2 [facility] Comment on above: Order Comment: Speci men Type: BLOOD SPECIMENOrdering Facility: [facility] Address: [address] [place] [address] Performed By: #### 2 4321-2, , 2776-05 ####[facility]ORATORYCLIA [id number] [place] [address] [place] Chloride [Moles/Vol] 96 mmol/L Low 97-105 [facility] Comment on above: Order Comment: Speci men Type: BLOOD SPECIMENOrdering Facility: [facility] Address: [address] [place] [address] Performed By: #### 2 4321-2, , 2776-05 ####[facility] LABORATORYCLIA [id number] [place] [id number] [place] CO2 [Moles/Vol] 32 mmol/L High 22-30 [facility] Comment on above: Order Comment: Speci men Type: BLOOD SPECIMENOrdering Facility: [facility] Address: [address] [place] [address] Performed By: #### 2 4321-2, , 2776- ####[facility]ORATORYCLIA [id number] [address] [place] Creatinine [Mass/Vol] 0.52 mg/dL Low 0.73-1.22 [facility] Comment on above: Order Comment: Shira feldman Type: BLOOD SPECIMENOrdering Facility: [facility] Address: [address] [place] [address] Performed By: #### 2 4321-2, , 2776-05 ####[facility]IA [id number] [place] [id number] [facility] ESTIMATED GLOMERULAR FILTRATION RATE 109 mL/min/1.73m??? Normal >=60 [facility] Comment on above: Order Comment: Shira feldman Type: BLOOD SPECIMENOrdering Facility: [facility] Address: [address] [place] [address] Result Comment: Luzmaria mated Glomerular Filtration Rate [...] 4321-2, , 2776-05 ####[facility]ISIA [id number] [address] [place] Glucose [Mass/Vol] 119 mg/dL High 74-99 [facility] Comment on above: Order Comment: Shira feldman Type: BLOOD SPECIMENOrdering Facility: [facility] Address: [address] [place] [address] Result Comment: The [place] [employer] (ADA) provides guidance for cutoff [...] Standards of Medical Care in Diabetes 2016, [place] [employer]. Diabetes Care. 2016.39(Suppl 1). Performed By: #### 2 4321-2, , 2776-05 ####[facility] LABORATORYCLIA [id number] [address] STATES [place] [facility] Potassium [Moles/Vol] 3.7 mmol/L Normal 3.7-5.1 [facility] Comment on above: Order Comment: Shira feldman Type: BLOOD SPECIMENOrdering Facility: [facility] Address: [address] [place] [address] Performed By: #### 2 4321-2, , 2776-05 ####[facility]ORATORYCLIA [id number] [address] STATES [facility] Sodium [Moles/Vol] 135 mmol/L Low 136-144 [facility] Comment on above: Order Comment: Shira feldman Type: BLOOD SPECIMENOrdering Facility: [facility] Address: [address] [place] [address] Performed By: #### 2 4321-2, , 2776-05 ####[facility]ORATORYCLIA [id number] [address] STATES [facility] Urea nitrogen [Mass/Vol] 20 mg/dL Normal 9-24 [facility] Comment on above: Order Comment: Shira feldman Type: BLOOD SPECIMENOrdering Facility: [facility] Address: [address] [place] [address] Performed By: #### 2 4321-2, , 2776-05 ####[facility]ORATORYCLIA [id number] [address] STATES [place] [facility] CASE MANAGEMon 08-12-2021 CASE MANAGEM Normal [facility] CBC W Auto Differential pane l (Bld)on 08-12-2021 Basophils (Bld) [#/Vol] 0.04 10*3/uL Normal <0.11 [facility] Comment on above: Order Comment: Speci men Type: BLOOD SPECIMENOrdering Facility: [facility] Address: [address] [place] [address] Performed By: #### 5 7021-8 ####[facility] LABORATORYCLIA [id number] [address] STATES [facility] Basophils/100 WBC (Bld) 0.5 % Normal [facility] Comment on above: Order Comment: Speci men Type: BLOOD SPECIMENOrdering Facility: [facility] Address: [address] [place] [address] Performed By: #### 5 7021-8 ####[facility]ORYCLIA [id number] [address] Differential cell count method Nom (Bld) Auto Normal [facility] Comment on above: Order Comment: Speci men Type: BLOOD SPECIMENOrdering Facility: [facility] Address: [address] [place] [address] Performed By: #### 5 7021-8 ####[facility]ORATORYCLIA [id number] [address] Eosinophils (Bld) [#/Vol] 0.19 10*3/uL Normal <0.46 [facility] Comment on above: Order Comment: Speci men Type: BLOOD SPECIMENOrdering Facility: [facility] Address: [address] [place] [address] Performed By: #### 5 7021-8 ####[facility]ORYCLIA [id number] [address] Eosinophils/100 WBC (Bld) 2.3 % Normal [facility] Comment on above: Order Comment: Speci men Type: BLOOD SPECIMENOrdering Facility: [facility] Address: [address] [place] [address] Performed By: #### 5 7021-8 ####[facility]ORYCLIA [id number] [address] Erythrocyte distribution width (RBC) [Ratio] 17.1 % High 11.5-15.0 [facility] Comment on above: Order Comment: Speci men Type: BLOOD SPECIMENOrdering Facility: [facility] Address: [address] [place] [address] Performed By: #### 5 7021-8 ####[facility] LABORATORYCLIA [id number] [address] OF [facility] Hematocrit (Bld) [Volume fraction] 25.3 % Low 39.0-51.0 [facility] Comment on above: Order Comment: Speci men Type: BLOOD SPECIMENOrdering Facility: [facility] Address: [address] [place] [address] Performed By: #### 5 7021-8 ####[facility]ORATORYCLIA [id number] [address] STATES [facility] Hemoglobin (Bld) [Mass/Vol] 7.9 g/dL Low 13.0-17.0 [facility] Comment on above: Order Comment: Speci men Type: BLOOD SPECIMENOrdering Facility: [facility] Address: [address] [place] [address] Performed By: #### 5 7021-8 ####[facility]ORATORYCLIA [id number] [address] [place] IMMATURE GRAN % 0.5 % Normal [facility] Comment on above: Order Comment: Speci men Type: BLOOD SPECIMENOrdering Facility: [facility] Address: [address] [place] [address] Performed By: #### 5 7021-8 ####[facility]ORATORYCLIA [id number] [address] IMMATURE GRAN ABS 0.04 k/uL Normal <0.10 [facility] Comment on above: Order Comment: Speci men Type: BLOOD SPECIMENOrdering Facility: [facility] Address: [address] [place] [address] Performed By: #### 5 7021-8 ####[facility]ORATORYCLIA [id number] [address] [place] Lymphocytes (Bld) [#/Vol] 1.69 10*3/uL Normal 1.00-4.00 [facility] Comment on above: Order Comment: Speci men Type: BLOOD SPECIMENOrdering Facility: [facility] Address: [address] [place] [address] Performed By: #### 5 7021-8 ####[facility]ORATORYCLIA [id number] [address] Lymphocytes/100 WBC (Bld) 20.1 % Normal [facility] Comment on above: Order Comment: Speci men Type: BLOOD SPECIMENOrdering Facility: [facility] Address: [address] [place] [address] Performed By: #### 5 7021-8 ####[facility]ORATORYCLIA [id number] [address] MCH (RBC) [Entitic mass] 28.5 pg Normal 26.0-34.0 [facility] Comment on above: Order Comment: Speci men Type: BLOOD SPECIMENOrdering Facility: [facility] Address: [address] [place] [address] Performed By: #### 5 7021-8 ####[facility]ORATORYCLIA [id number] [address] [place] MCHC (RBC) [Mass/Vol] 31.2 g/dL Normal 30.5-36.0 [facility] Comment on above: Order Comment: Speci men Type: BLOOD SPECIMENOrdering Facility: [facility] Address: [address] [place] [address] Performed By: #### 5 7021-8 ####[facility]ORATORYCLIA [id number] [address] OF [facility] MCV (RBC) [Entitic vol] 91.3 fL Normal 80.0-100.0 [facility] Comment on above: Order Comment: Speci men Type: BLOOD SPECIMENOrdering Facility: [facility] Address: [address] [place] [address] Performed By: #### 5 7021-8 ####[facility]ATORYCLIA [id number] [place] [address] [place] Monocytes (Bld) [#/Vol] 0.53 10*3/uL Normal <0.87 [facility] Comment on above: Order Comment: Speci men Type: BLOOD SPECIMENOrdering Facility: [facility] Address: [address] [place] [address] Performed By: #### 5 7021-8 ####[facility]ATORYCLIA [id number] [address] [place] Monocytes/100 WBC (Bld) 6.3 % Normal [facility] Comment on above: Order Comment: Speci men Type: BLOOD SPECIMENOrdering Facility: [facility] Address: [address] [place] [address] Performed By: #### 5 7021-8 ####[facility]ATORYCLIA [id number] [address] [place] Neutrophils (Bld) [#/Vol] 5.90 10*3/uL Normal 1.45-7.50 [facility] Comment on above: Order Comment: Speci men Type: BLOOD SPECIMENOrdering Facility: [facility] Address: [address] [place] [address] Performed By: #### 5 7021-8 ####[facility]ATORYCLIA [id number] [address] [place] Neutrophils/100 WBC (Bld) 70.3 % Normal [facility] Comment on above: Order Comment: Speci men Type: BLOOD SPECIMENOrdering Facility: [facility] Address: [address] [place] [address] Performed By: #### 5 7021-8 ####[facility] LABORATORYCLIA [id number] [place] [address] [place] Nucleated RBC (Bld) [#/Vol] 10*3/uL Normal <0.01 [facility] Comment on above: Order Comment: Speci men Type: BLOOD SPECIMENOrdering Facility: [facility] Address: [address] [place] [address] Performed By: #### 5 7021-8 ####[facility]ORYCLIA [id number] [address] [place] Nucleated RBC/100 WBC (Bld) [Ratio] 0.0 /100 WBC Normal [facility] Comment on above: Order Comment: Speci men Type: BLOOD SPECIMENOrdering Facility: [facility] Address: [address] [place] [address] Performed By: #### 5 7021-8 ####[facility]ATORYCLIA [id number] [address] [place] Platelet mean volume (Bld) [Entitic vol] 9.8 fL Normal 9.0-12.7 [facility] Comment on above: Order Comment: Speci men Type: BLOOD SPECIMENOrdering Facility: [facility] Address: [address] [place], [place] [address] Performed By: #### 5 7021-8 ####[facility]ATORYCLIA [id number] [address] [place] Platelets (Bld) [#/Vol] 164 10*3/uL Normal 150-400 [facility] Comment on above: Order Comment: Speci men Type: BLOOD SPECIMENOrdering Facility: [facility] Address: [address] [place], [place] [address] Performed By: #### 5 7021-8 ####[facility]ATORYCLIA [id number] [address] [place] RBC (Bld) [#/Vol] 2.77 10*6/uL Low 4.20-6.00 [facility] Comment on above: Order Comment: Speci men Type: BLOOD SPECIMENOrdering Facility: [facility] Address: [address] [place], [place] [address] Performed By: #### 5 7021-8 ####[facility]ORYCLIA [id number] [address] [place] WBC (Bld) [#/Vol] 8.39 10*3/uL Normal 3.70-11.00 [facility] Comment on above: Order Comment: Speci men Type: BLOOD SPECIMENOrdering Facility: [facility] Address: [address] [place] [address] Performed By: #### 5 7021-8 ####[facility]ATORYCLIA [id number] [address] [place] BRAIN WO IVCONon 08-13-19 CT BRAIN WO IVCON Normal [facility] CT BRAIN WO IVCON Normal [facility] Magnesium SerPl-mCncon 08-12 Magnesium [Mass/Vol] 2.0 mg/dL Normal 1.7-2.3 [facility] Comment on above: Order Comment: Speci men Type: BLOOD SPECIMENOrdering Facility: [facility] Address: [address] [place] [address] Performed By: #### 2 4321-2, 68443-4, 27711-04 ####[facility]ATORYCLIA [id number] [address] Phosphate SerPl-mCncon 08-12 Phosphate [Mass/Vol] 2.9 mg/dL Normal 2.7-4.8 [facility] Comment on above: Order Comment: Speci men Type: BLOOD SPECIMENOrdering Facility: [facility] Address: [address] [place] [address] Performed By: #### 2 4321-2, 61179-4, 2777- ####[facility]ORYCLIA [id number] [address] THERAPY NTon 08-12-2021 THERAPY NT Normal [facility] THERAPY NT Normal [facility] aPTT PPPon 08-12-2021 aPTT Coag (PPP) [Time] 94.2 s High 23.0-32.[address] [place] Comment on above: Order Comment: Speci men Type: BLOOD SPECIMENOrdering Facility: [facility] Address: [address] [place] [address] Performed By: #### 1 4979-9 ####[facility]ORYCLIA [id number] [address] aPTT Coag (PPP) [Time] 84.4 s High 23.0-32.[address] [place] Comment on above: Order Comment: Speci men Type: BLOOD SPECIMENOrdering Facility: [facility] Address: [address] [place] [address] Performed By: #### 1 4979-9 ####[facility]ORYCLIA [id number] [address] aPTT Coag (PPP) [Time] 71.3 s High 23.0-32.[address] [place] Comment on above: Order Comment: Speci men Type: BLOOD SPECIMENOrdering Facility: [facility] Address: [address] [place] [address] Performed By: #### 1 4979-9 ####[facility]ORYCLIA [id number] [address] [place] ALLIED HEALTHon 08-11-2021 ALLIED HEALTH Normal [facility] CBC W Auto Differential pane l (Bld)on 08-11-2021 Basophils (Bld) [#/Vol] 10*3/uL Normal <0.11 [facility] Comment on above: Order Comment: Speci men Type: BLOOD SPECIMENOrdering Facility: [facility] Address: [address] [place] [address] Performed By: #### 5 7021-8 ####[facility]ORYCLIA [id number] [address] Basophils/100 WBC (Bld) 0.2 % Normal [facility] Comment on above: Order Comment: Speci men Type: BLOOD SPECIMENOrdering Facility: [facility] Address: [address] [place] [address] Performed By: #### 5 7021-8 ####[facility]ORYCLIA [id number] [address] Differential cell count method Nom (Bld) Auto Normal [facility] Comment on above: Order Comment: Speci men Type: BLOOD SPECIMENOrdering Facility: [facility] Address: [address] [place] [address] Performed By: #### 5 7021-8 ####[facility]ATORYCLIA [id number] [address] Eosinophils (Bld) [#/Vol] 0.16 10*3/uL Normal <0.46 [facility] Comment on above: Order Comment: Speci men Type: BLOOD SPECIMENOrdering Facility: [facility] Address: [address] [place] [address] Performed By: #### 5 7021-8 ####[facility]ORYCLIA [id number] [address] Eosinophils/100 WBC (Bld) 1.8 % Normal [facility] Comment on above: Order Comment: Speci men Type: BLOOD SPECIMENOrdering Facility: [facility] Address: [address] [place] [address] Performed By: #### 5 7021-8 ####[facility] LABORATORYCLIA [id number] [address] Erythrocyte distribution width (RBC) [Ratio] 17.3 % High 11.5-15.0 [facility] Comment on above: Order Comment: Speci men Type: BLOOD SPECIMENOrdering Facility: [facility] Address: [address] [place] [address] Performed By: #### 5 7021-8 ####[facility] LABORATORYCLIA [id number] [address] Hematocrit (Bld) [Volume fraction] 26.6 % Low 39.0-51.0 [facility] Comment on above: Order Comment: Speci men Type: BLOOD SPECIMENOrdering Facility: [facility] Address: [address] [place] [address] Performed By: #### 5 7021-8 ####[facility] LABORATORYCLIA [id number] [address] Hemoglobin (Bld) [Mass/Vol] 8.2 g/dL Low 13.0-17.0 [facility] Comment on above: Order Comment: Speci men Type: BLOOD SPECIMENOrdering Facility: [facility] Address: [address] [place] [address] Performed By: #### 5 7021-8 ####[facility] LABORATORYCLIA [id number] [address] IMMATURE GRAN % 0.6 % Normal [facility] Comment on above: Order Comment: Speci men Type: BLOOD SPECIMENOrdering Facility: [facility] Address: [address] [place] [address] Performed By: #### 5 7021-8 ####[facility] LABORATORYCLIA [id number] [address] IMMATURE GRAN ABS 0.05 k/uL Normal <0.10 [facility] Comment on above: Order Comment: Speci men Type: BLOOD SPECIMENOrdering Facility: [facility] Address: [address] [place] [address] Performed By: #### 5 7021-8 ####[facility] LABORATORYCLIA [id number] [address] Lymphocytes (Bld) [#/Vol] 1.40 10*3/uL Normal 1.00-4.00 [facility] Comment on above: Order Comment: Speci men Type: BLOOD SPECIMENOrdering Facility: [facility] Address: [address] [place] [address] Performed By: #### 5 7021-8 ####[facility] LABORATORYCLIA [id number] [address] Lymphocytes/100 WBC (Bld) 15.8 % Normal [facility] Comment on above: Order Comment: Speci men Type: BLOOD SPECIMENOrdering Facility: [facility] Address: [address] [place] [address] Performed By: #### 5 7021-8 ####[facility] LABORATORYCLIA [id number] [address] MCH (RBC) [Entitic mass] 28.4 pg Normal 26.0-34.0 [facility] Comment on above: Order Comment: Speci men Type: BLOOD SPECIMENOrdering Facility: [facility] Address: [address] [place] [address] Performed By: #### 5 7021-8 ####[facility] LABORATORYCLIA [id number] [address] MCHC (RBC) [Mass/Vol] 30.8 g/dL Normal 30.5-36.0 [facility] Comment on above: Order Comment: Speci men Type: BLOOD SPECIMENOrdering Facility: [facility] Address: [address] [place] [address] Performed By: #### 5 7021-8 ####[facility] LABORATORYCLIA [id number] [address] MCV (RBC) [Entitic vol] 92.0 fL Normal 80.0-100.0 [facility] Comment on above: Order Comment: Speci men Type: BLOOD SPECIMENOrdering Facility: [facility] Address: [address] [place] [address] Performed By: #### 5 7021-8 ####[facility] LABORATORYCLIA [id number] [address] Monocytes (Bld) [#/Vol] 0.61 10*3/uL Normal <0.87 [facility] Comment on above: Order Comment: Speci men Type: BLOOD SPECIMENOrdering Facility: [facility] Address: [address] [place] [address] Performed By: #### 5 7021-8 ####[facility]ORATORYCLIA [id number] [address] [place] Monocytes/100 WBC (Bld) 6.9 % Normal [facility] Comment on above: Order Comment: Speci men Type: BLOOD SPECIMENOrdering Facility: [facility] Address: [address] [place] [address] Performed By: #### 5 7021-8 ####[facility]ATORYCLIA [id number] [address] [place] Neutrophils (Bld) [#/Vol] 6.62 10*3/uL Normal 1.45-7.50 [facility] Comment on above: Order Comment: Speci men Type: BLOOD SPECIMENOrdering Facility: [facility] Address: [address] [place] [address] Performed By: #### 5 7021-8 ####[facility] LABORATORYCLIA [id number] [address] Neutrophils/100 WBC (Bld) 74.7 % Normal [facility] Comment on above: Order Comment: Speci men Type: BLOOD SPECIMENOrdering Facility: [facility] Address: [address] [place] [address] Performed By: #### 5 7021-8 ####[facility] LABORATORYCLIA [id number] [address] [place] Nucleated RBC (Bld) [#/Vol] 10*3/uL Normal <0.01 [facility] Comment on above: Order Comment: Speci men Type: BLOOD SPECIMENOrdering Facility: [facility] Address: [address] [place] [address] Performed By: #### 5 7021-8 ####[facility]ATORYCLIA [id number] [address] Nucleated RBC/100 WBC (Bld) [Ratio] 0.0 /100 WBC Normal [facility] Comment on above: Order Comment: Speci men Type: BLOOD SPECIMENOrdering Facility: [facility] Address: [address] [place] [address] Performed By: #### 5 7021-8 ####[facility] LABORATORYCLIA [id number] [address] STATES [facility] Platelet mean volume (Bld) [Entitic vol] 9.8 fL Normal 9.0-12.7 [facility] Comment on above: Order Comment: Speci men Type: BLOOD SPECIMENOrdering Facility: [facility] Address: [address] [place] [address] Performed By: #### 5 7021-8 ####[facility] LABORATORYCLIA [id number] [place] [address] [place] Platelets (Bld) [#/Vol] 157 10*3/uL Normal 150-400 [facility] Comment on above: Order Comment: Speci men Type: BLOOD SPECIMENOrdering Facility: [facility] Address: [address] [place] [address] Performed By: #### 5 7021-8 ####[facility] LABORATORYCLIA [id number] [place] [address] [place] RBC (Bld) [#/Vol] 2.89 10*6/uL Low 4.20-6.00 [facility] Comment on above: Order Comment: Speci men Type: BLOOD SPECIMENOrdering Facility: [facility] Address: [address] [place] [address] Performed By: #### 5 7021-8 ####[facility] LABORATORYCLIA [id number] [place] [address] [place] WBC (Bld) [#/Vol] 8.86 10*3/uL Normal 3.70-11.00 [facility] Comment on above: Order Comment: Speci men Type: BLOOD SPECIMENOrdering Facility: [facility] Address: [address] [place] [address] Performed By: #### 5 7021-8 ####[facility] LABORATORYCLIA [id number] [address] [place] CBC panel Auto (Bld)on 08-11 Erythrocyte distribution width (RBC) [Ratio] 17.2 % High 11.5-15.0 [facility] Comment on above: Order Comment: Speci men Type: BLOOD SPECIMENOrdering Facility: [facility] Address: [address] [place] [address] Performed By: #### 5 8410-2 ####[facility] LABORATORYCLIA [id number] [address] Hematocrit (Bld) [Volume fraction] 27.0 % Low 39.0-51.0 [facility] Comment on above: Order Comment: Speci men Type: BLOOD SPECIMENOrdering Facility: [facility] Address: [address] [place] [address] Performed By: #### 5 8410-2 ####[facility]ORATORYCLIA [id number] [address] Hemoglobin (Bld) [Mass/Vol] 8.3 g/dL Low 13.0-17.0 [facility] Comment on above: Order Comment: Speci men Type: BLOOD SPECIMENOrdering Facility: [facility] Address: [address] [place] [address] Performed By: #### 5 8410-2 ####[facility] LABORATORYCLIA [id number] [address] MCH (RBC) [Entitic mass] 28.7 pg Normal 26.0-34.0 [facility] Comment on above: Order Comment: Speci men Type: BLOOD SPECIMENOrdering Facility: [facility] Address: [address] [place] [address] Performed By: #### 5 8410-2 ####[facility] LABORATORYCLIA [id number] [address] MCHC (RBC) [Mass/Vol] 30.7 g/dL Normal 30.5-36.0 [facility] Comment on above: Order Comment: Speci men Type: BLOOD SPECIMENOrdering Facility: [facility] Address: [address] [address] Performed By: #### 5 8410-2 ####[facility] LABORATORYCLIA [id number] [address] MCV (RBC) [Entitic vol] 93.4 fL Normal 80.0-100.0 [facility] Comment on above: Order Comment: Speci men Type: BLOOD SPECIMENOrdering Facility: [facility] Address: [address] [place] [address] Performed By: #### 5 8410-2 ####[facility]ORATORYCLIA [id number] [address] Nucleated RBC (Bld) [#/Vol] 10*3/uL Normal <0.01 [facility] Comment on above: Order Comment: Speci men Type: BLOOD SPECIMENOrdering Facility: [facility] Address: [address] [place] [address] Performed By: #### 5 8410-2 ####[facility]ORATORYCLIA [id number] [address] Platelet mean volume (Bld) [Entitic vol] 9.8 fL Normal 9.0-12.7 [facility] Comment on above: Order Comment: Speci men Type: BLOOD SPECIMENOrdering Facility: [facility] Address: [address] [place] [address] Performed By: #### 5 8410-2 ####[facility]ORATORYCLIA [id number] [address] Platelets (Bld) [#/Vol] 169 10*3/uL Normal 150-400 [facility] Comment on above: Order Comment: Speci men Type: BLOOD SPECIMENOrdering Facility: [facility] Address: [address] [place] [address] Performed By: #### 5 8410-2 ####[facility]ORATORYCLIA [id number] [address] [place] RBC (Bld) [#/Vol] 2.89 10*6/uL Low 4.20-6.00 [facility] Comment on above: Order Comment: Shira feldman Type: BLOOD SPECIMENOrdering Facility: [facility] Address: [address] [place] [address] Performed By: #### 5 8410-2 ####[facility] LABORATORYCLIA [id number] [address] OF [facility] WBC (Bld) [#/Vol] 9.03 10*3/uL Normal 3.70-11.00 [facility] Comment on above: Order Comment: Shira feldman Type: BLOOD SPECIMENOrdering Facility: [facility] Address: [address] [place] [address] Performed By: #### 5 8410-2 ####[facility] LABORATORYCLIA [id number] [address] BRAIN WO IVCONon 08-12-19 CT BRAIN WO IVCON Normal [facility] PT panel Coag (PPP)on 2021 INR Coag (PPP) [Relative time] 1.0 {INR} Normal 0.9-1.3 [facility] Comment on above: Order Comment: Shira feldman Type: BLOOD SPECIMENOrdering Facility: [facility] Address: [address] [place] [address] Result Comment: Yris min K Antagonist (VKA) Therapeutic Range: INR 2 to 3 (Target INR of 2.5)Note: For patients treated with VKA drugs, such as warfarin, the [employer] 2012 Guideline recommends [...] of 2.5 to 3.5 (target INR of 3).Guyatt GH, et al. Chest 2012, 141:7S-47SAlba RA, et al. [facility] 2017, 70: 252-289 Performed By: #### 1 4979-9, 07483-4 ####[facility] LABORATORYCLIA [id number] [place] [address] [place] PT Coag (PPP) [Time] 11.4 s Normal 9.7-13.0 [facility] Comment on above: Order Comment: Speci men Type: BLOOD SPECIMENOrdering Facility: [facility] Address: [address] [place] [address] Performed By: #### 1 4979-9, 08949-5 ####[facility] LABORATORYCLIA [id number] [address] [place] THERAPY NTon 08-11-2021 THERAPY NT Normal [facility] US DVT LOWER BILon 2 US DVT LOWER RAINER Normal [facility] US DVT UPPER BILon 2 US DVT UPPER RAINER Normal [facility] aPTT PPPon 08-11-2021 aPTT Coag (PPP) [Time] 26.9 s Normal 23.0-32.[address] [place] Comment on above: Order Comment: Speci men Type: BLOOD SPECIMENOrdering Facility: [facility] Address: [address] [place] [address] Performed By: #### 1 4979-9, 34017-9 ####[facility] LABORATORYCLIA [id number] [address] [place] Basic metabolic 2000 panelon 08-10-2021 Anion gap [Moles/Vol] 11 mmol/L Normal 9-18 [facility] Comment on above: Order Comment: Speci men Type: BLOOD SPECIMENOrdering Facility: [facility] Address: [address] [place] [address] Performed By: #### 2 4321-2 ####[facility]ORATORYCLIA [id number] [address] [place] Calcium [Mass/Vol] 8.7 mg/dL Normal 8.5-10.2 [facility] Comment on above: Order Comment: Speci men Type: BLOOD SPECIMENOrdering Facility: [facility] Address: [address] [place] [address] Performed By: #### 2 4321-2 ####[facility] LABORATORYCLIA [id number] [place] [address] [place] Chloride [Moles/Vol] 98 mmol/L Normal 97-105 [facility] Comment on above: Order Comment: Speci men Type: BLOOD SPECIMENOrdering Facility: [facility] Address: [address] [place] [address] Performed By: #### 2 4321-2 ####[facility]ORATORYCLIA [id number] [place] [address] [place] CO2 [Moles/Vol] 28 mmol/L Normal 22-30 [facility] Comment on above: Order Comment: Speci men Type: BLOOD SPECIMENOrdering Facility: [facility] Address: [address] [place] [address] Performed By: #### 2 4321-2 ####[facility]ORATORYCLIA [id number] [address] [place] Creatinine [Mass/Vol] 0.59 mg/dL Low 0.73-1.22 [facility] Comment on above: Order Comment: Speci men Type: BLOOD SPECIMENOrdering Facility: [facility] Address: [address] [place] [address] Performed By: #### 2 4321-2 ####[facility]ORATORYCLIA [id number] [address] OF [facility] ESTIMATED GLOMERULAR FILTRATION RATE 105 mL/min/1.73m??? Normal >=60 [facility] Comment on above: Order Comment: Speci men Type: BLOOD SPECIMENOrdering Facility: [facility] Address: [address] [place] [address] Result Comment: Luzmaria mated Glomerular Filtration Rate [...] Performed By: #### 2 4321-2 ####[facility]ORATORYCLIA [id number] [place] [address] [place] Glucose [Mass/Vol] 118 mg/dL High 74-99 [facility] Comment on above: Order Comment: Speci men Type: BLOOD SPECIMENOrdering Facility: [facility] Address: [address] [place] [address] Result Comment: The [employer] (ADA) provides guidance for cutoff [...] Standards of Medical Care in Diabetes 2016, [employer]. Diabetes Care. 2016.39(Suppl 1). Performed By: #### 2 4321-2 ####[facility]ORATORYCLIA [id number] [place] [address] [place] Potassium [Moles/Vol] 3.7 mmol/L Normal 3.7-5.1 [facility] Comment on above: Order Comment: Speci men Type: BLOOD SPECIMENOrdering Facility: [facility] Address: [address] [place], [place] [id number] Performed By: #### 2 4321-2 ####[facility] LABORATORYCLIA [id number] [place] [id number] [place] Sodium [Moles/Vol] 137 mmol/L Normal 136-144 [facility] Comment on above: Order Comment: Speci men Type: BLOOD SPECIMENOrdering Facility: [facility] Address: [address] [place] [address] Performed By: #### 2 4321-2 ####[facility]ORATORYCLIA [id number] [place] [address] [place] Urea nitrogen [Mass/Vol] 23 mg/dL Normal 9-24 [facility] Comment on above: Order Comment: Speci men Type: BLOOD SPECIMENOrdering Facility: [facility] Address: [address] [place] [address] Performed By: #### 2 4321-2 ####[facility]ORATORYCLIA [id number] [place] [address] [place] Anion gap [Moles/Vol] 17 mmol/L Normal 9-18 [facility] Comment on above: Order Comment: Speci men Type: BLOOD SPECIMENOrdering Facility: [facility] Address: [address] [place] [address] Performed By: #### 1 9123-9, 2777, 14247-9 ####[facility]ORATORYCLIA [id number] [place] [address] [place] Calcium [Mass/Vol] 7.7 mg/dL Low 8.5-10.2 [facility] Comment on above: Order Comment: Speci men Type: BLOOD SPECIMENOrdering Facility: [facility] Address: [address] [place] [address] Performed By: #### 1 9123-9, 2777, 74620-1 ####[facility]ATORYCLIA [id number] [place] [address] [place] Chloride [Moles/Vol] 86 mmol/L Low 97-105 [facility] Comment on above: Order Comment: Speci men Type: BLOOD SPECIMENOrdering Facility: [facility] Address: [address] [place] [address] Performed By: #### 1 9123-9, 2777, 25479-0 ####[facility]ORATORYCLIA [id number] [address] STATES OF [facility] CO2 [Moles/Vol] 24 mmol/L Normal 22-30 [facility] Comment on above: Order Comment: Shira feldman Type: BLOOD SPECIMENOrdering Facility: [facility] Address: [address] [place] [address] Performed By: #### 1 9123-9, 2777-1, 77638-5 ####[facility]ORATORYCLIA [id number] [address] Creatinine [Mass/Vol] 0.53 mg/dL Low 0.73-1.22 [facility] Comment on above: Order Comment: Johni francia Type: BLOOD SPECIMENOrdering Facility: [facility] Address: [address] [place] [address] Performed By: #### 1 9123-9, 2777-1, 26865-4 ####[facility]POLISIA [id number] [address] ESTIMATED GLOMERULAR FILTRATION RATE 108 mL/min/1.73m??? Normal >=60 [facility] Comment on above: Order Comment: Shira feldman Type: BLOOD SPECIMENOrdering Facility: [facility] Address: [address] [place] [address] Result Comment: Luzmaria mated Glomerular Filtration Rate [...] GFR. Performed By: #### 1 9123-9, 2777-1, 14395-7 ####[facility]ORATORYCLIA [id number] [address] [place] Glucose [Mass/Vol] 455 mg/dL High 74-99 [facility] Comment on above: Order Comment: Johni men Type: BLOOD SPECIMENOrdering Facility: [facility] Address: [address] [phone] Result Comment: The [place] [employer] (ADA) provides guidance for cutoff [...] Standards of Medical Care in Diabetes 2016, [place] [employer]. Diabetes Care. 2016.39(Suppl 1). Performed By: #### 1 9123-9, 2777-, 77000-8 ####[facility] LABORATORYCLIA [id number] [place] [address] [place] Potassium [Moles/Vol] 3.4 mmol/L Low 3.7-5.1 [facility] Comment on above: Order Comment: Speci men Type: BLOOD SPECIMENOrdering Facility: [facility] Address: [address] [address] Performed By: #### 1 9123-9, 2777-, 71444-9 ####[facility]ORATORYCLIA [id number] [place] [address] [place] Sodium [Moles/Vol] 127 mmol/L Low 136-144 [facility] Comment on above: Order Comment: Speci men Type: BLOOD SPECIMENOrdering Facility: [facility] Address: [address] [place] [address] Performed By: #### 1 9123-9, 2777, 61763-5 ####[facility] LABORATORYCLIA [id number] [place] [address] [place] Urea nitrogen [Mass/Vol] 21 mg/dL Normal 9-24 [facility] Comment on above: Order Comment: Speci men Type: BLOOD SPECIMENOrdering Facility: [facility] Address: [address] [place] [address] Performed By: #### 1 9123-9, 2777-1, 83975-4 ####[facility] LABORATORYCLIA [id number] [address] [place] CASE MANAGEMon 08-10-2021 CASE MANAGEM Normal [facility] CBC W Auto Differential pane l (Bld)on 08-10-2021 Basophils (Bld) [#/Vol] 0.04 10*3/uL Normal <0.11 [facility] Comment on above: Order Comment: Speci men Type: BLOOD SPECIMENOrdering Facility: [facility] Address: [address] [place] [address] Performed By: #### 5 7021-8 ####[facility] LABORATORYCLIA [id number] [address] [place] Basophils/100 WBC (Bld) 0.4 % Normal [facility] Comment on above: Order Comment: Speci men Type: BLOOD SPECIMENOrdering Facility: [facility] Address: [address] [address] Performed By: #### 5 7021-8 ####[facility] LABORATORYCLIA [id number] [address] [place] Differential cell count method Nom (Bld) Auto Normal [facility] Comment on above: Order Comment: Speci men Type: BLOOD SPECIMENOrdering Facility: [facility] Address: [address] [address] Performed By: #### 5 7021-8 ####[facility] LABORATORYCLIA [id number] [address] [place] Eosinophils (Bld) [#/Vol] 0.11 10*3/uL Normal <0.46 [facility] Comment on above: Order Comment: Speci men Type: BLOOD SPECIMENOrdering Facility: [facility] Address: [address] [address] Performed By: #### 5 7021-8 ####[facility]ORATORYCLIA [id number] [address] Eosinophils/100 WBC (Bld) 1.1 % Normal [facility] Comment on above: Order Comment: Speci men Type: BLOOD SPECIMENOrdering Facility: [facility] Address: [address] [place] [address] Performed By: #### 5 7021-8 ####[facility] LABORATORYCLIA [id number] [address] Erythrocyte distribution width (RBC) [Ratio] 17.2 % High 11.5-15.0 [facility] Comment on above: Order Comment: Speci men Type: BLOOD SPECIMENOrdering Facility: [facility] Address: [address] [place] [address] Performed By: #### 5 7021-8 ####[facility] LABORATORYCLIA [id number] [address] Hematocrit (Bld) [Volume fraction] 25.5 % Low 39.0-51.0 [facility] Comment on above: Order Comment: Speci men Type: BLOOD SPECIMENOrdering Facility: [facility] Address: [address] [place] [address] Performed By: #### 5 7021-8 ####[facility] LABORATORYCLIA [id number] [address] [place] Hemoglobin (Bld) [Mass/Vol] 7.9 g/dL Low 13.0-17.0 [facility] Comment on above: Order Comment: Speci men Type: BLOOD SPECIMENOrdering Facility: [facility] Address: [address] [place] [address] Performed By: #### 5 7021-8 ####[facility] LABORATORYCLIA [id number] [address] IMMATURE GRAN % 0.4 % Normal [facility] Comment on above: Order Comment: Speci men Type: BLOOD SPECIMENOrdering Facility: [facility] Address: [address] [place] [address] Performed By: #### 5 7021-8 ####[facility] LABORATORYCLIA [id number] [address] [place] [facility] IMMATURE GRAN ABS 0.04 k/uL Normal <0.10 [facility] Comment on above: Order Comment: Speci men Type: BLOOD SPECIMENOrdering Facility: [facility] Address: [address] [place] [address] Performed By: #### 5 7021-8 ####[facility] LABORATORYCLIA [id number] [address] Lymphocytes (Bld) [#/Vol] 1.66 10*3/uL Normal 1.00-4.00 [facility] Comment on above: Order Comment: Speci men Type: BLOOD SPECIMENOrdering Facility: [facility] Address: [address] [place] [address] Performed By: #### 5 7021-8 ####[facility] LABORATORYCLIA [id number] [address] Lymphocytes/100 WBC (Bld) 16.2 % Normal [facility] Comment on above: Order Comment: Speci men Type: BLOOD SPECIMENOrdering Facility: [facility] Address: [address] [place] [address] Performed By: #### 5 7021-8 ####[facility] LABORATORYCLIA [id number] [address] MCH (RBC) [Entitic mass] 28.5 pg Normal 26.0-34.0 [facility] Comment on above: Order Comment: Speci men Type: BLOOD SPECIMENOrdering Facility: [facility] Address: [address] [place] [address] Performed By: #### 5 7021-8 ####[facility] LABORATORYCLIA [id number] [address] MCHC (RBC) [Mass/Vol] 31.0 g/dL Normal 30.5-36.0 [facility] Comment on above: Order Comment: Speci men Type: BLOOD SPECIMENOrdering Facility: [facility] Address: [address] [place] [address] Performed By: #### 5 7021-8 ####[facility] LABORATORYCLIA [id number] [address] MCV (RBC) [Entitic vol] 92.1 fL Normal 80.0-100.0 [facility] Comment on above: Order Comment: Speci men Type: BLOOD SPECIMENOrdering Facility: [facility] Address: [address] [place] [address] Performed By: #### 5 7021-8 ####[facility] LABORATORYCLIA [id number] [address] [place] Monocytes (Bld) [#/Vol] 0.51 10*3/uL Normal <0.87 [facility] Comment on above: Order Comment: Speci men Type: BLOOD SPECIMENOrdering Facility: [facility] Address: [address] [place] [address] Performed By: #### 5 7021-8 ####[facility] LABORATORYCLIA [id number] [address] STATES [facility] Monocytes/100 WBC (Bld) 5.0 % Normal [facility] Comment on above: Order Comment: Speci men Type: BLOOD SPECIMENOrdering Facility: [facility] Address: [address] [place] [address] Performed By: #### 5 7021-8 ####[facility] LABORATORYCLIA [id number] [address] [place] Neutrophils (Bld) [#/Vol] 7.91 10*3/uL High 1.45-7.50 [facility] Comment on above: Order Comment: Speci men Type: BLOOD SPECIMENOrdering Facility: [facility] Address: [address] [place] [address] Performed By: #### 5 7021-8 ####[facility] LABORATORYCLIA [id number] [place] [address] [place] Neutrophils/100 WBC (Bld) 76.9 % Normal [facility] Comment on above: Order Comment: Speci men Type: BLOOD SPECIMENOrdering Facility: [facility] Address: [address] [address] Performed By: #### 5 7021-8 ####[facility] LABORATORYCLIA [id number] [address] [place] Nucleated RBC (Bld) [#/Vol] 10*3/uL Normal <0.01 [facility] Comment on above: Order Comment: Speci men Type: BLOOD SPECIMENOrdering Facility: [facility] Address: [address] [place] [address] Performed By: #### 5 7021-8 ####[facility] LABORATORYCLIA [id number] [address] Nucleated RBC/100 WBC (Bld) [Ratio] 0.0 /100 WBC Normal [facility] Comment on above: Order Comment: Speci men Type: BLOOD SPECIMENOrdering Facility: [facility] Address: [address] [place], [place] [address] Performed By: #### 5 7021-8 ####[facility] LABORATORYCLIA [id number] [address] Platelet mean volume (Bld) [Entitic vol] 10.3 fL Normal 9.0-12.7 [facility] Comment on above: Order Comment: Speci men Type: BLOOD SPECIMENOrdering Facility: [facility] Address: [address] Performed By: #### 5 7021-8 ####[facility] LABORATORYCLIA [id number] [address] [place] Platelets (Bld) [#/Vol] 152 10*3/uL Normal 150-400 [facility] Comment on above: Order Comment: Speci men Type: BLOOD SPECIMENOrdering Facility: [facility] Address: [address] [place], [place] [address] Performed By: #### 5 7021-8 ####[facility] LABORATORYCLIA [id number] [place] [address] [place] RBC (Bld) [#/Vol] 2.77 10*6/uL Low 4.20-6.00 [facility] Comment on above: Order Comment: Speci men Type: BLOOD SPECIMENOrdering Facility: [facility] Address: [address] [place] [address] Performed By: #### 5 7021-8 ####[facility] LABORATORYCLIA [id number] [address] [place] WBC (Bld) [#/Vol] 10.27 10*3/uL Normal 3.70-11.00 [facility] Comment on above: Order Comment: Speci men Type: BLOOD SPECIMENOrdering Facility: [facility] Address: [address] [place] [address] Performed By: #### 5 7021-8 ####[facility] LABORATORYCLIA [id number] [address] [place] Magnesium SerPl-mCncon 08-10 Magnesium [Mass/Vol] 1.8 mg/dL Normal 1.7-2.3 [facility] Comment on above: Order Comment: Speci men Type: BLOOD SPECIMENOrdering Facility: [facility] Address: [address] [place] [address] Performed By: #### 1 9123-9, 2777-1, 21004-1 ####[facility] LABORATORYCLIA [id number] [place] [address] [place] NURSING PROGon 08-10-2021 NURSING PROG Normal [facility] NURSING PROG Normal [facility] NUTRITIONon 08-10-2021 NUTRITION Normal [facility] Phosphate SerPl-mCncon 08-10 Phosphate [Mass/Vol] 3.7 mg/dL Normal 2.7-4.8 [facility] Comment on above: Order Comment: Speci men Type: BLOOD SPECIMENOrdering Facility: [facility] Address: [address] [address] Performed By: #### 1 9123-9, 2777-1, 16064-5 ####[facility] LABORATORYCLIA [id number] [place] [address] [place] ALLIED HEALTHon 08-09-2021 ALLIED HEALTH Normal [facility] ANES POSTPROC EVALon 022 ANES POSTPROC EVAL Normal [facility] ANES PRE-OPon 08-09-2021 ANES PRE-OP Normal [facility] BRIEF OP NOTon 08-09-2021 BRIEF OP NOT Normal [facility] Basic metabolic 2000 panelon 08-09-2021 Anion gap [Moles/Vol] 8 mmol/L Low 9-18 [facility] Comment on above: Order Comment: Speci men Type: BLOOD SPECIMENOrdering Facility: [facility] Address: [address] [place] [address] Performed By: #### 2 4321-2, , 2776-05 ####[facility] LABORATORYCLIA [id number] [place] [address] [place] Calcium [Mass/Vol] 9.2 mg/dL Normal 8.5-10.2 [facility] Comment on above: Order Comment: Speci men Type: BLOOD SPECIMENOrdering Facility: [facility] Address: [address] [place] [address] Performed By: #### 2 4321-2, , 2776-05 ####[facility] LABORATORYCLIA [id number] [place] [address] [place] Chloride [Moles/Vol] 97 mmol/L Normal 97-105 [facility] Comment on above: Order Comment: Speci men Type: BLOOD SPECIMENOrdering Facility: [facility] Address: [address] [place] [address] Performed By: #### 2 4321-2, , 2776- ####[facility] LABORATORYCLIA [id number] [place] [address] [place] CO2 [Moles/Vol] 30 mmol/L Normal 22-30 [facility] Comment on above: Order Comment: Speci men Type: BLOOD SPECIMENOrdering Facility: [facility] Address: [address] [place] [address] Performed By: #### 2 4321-2, , 2776-05 ####[facility] LABORATORYCLIA [id number] [address] [place] Creatinine [Mass/Vol] 0.51 mg/dL Low 0.73-1.22 [facility] Comment on above: Order Comment: Speci men Type: BLOOD SPECIMENOrdering Facility: [facility] Address: [address] [place] [address] Performed By: #### 2 4321-2, , 2776-05 ####[facility] LABORATORYCLIA [id number] [address] ESTIMATED GLOMERULAR FILTRATION RATE 110 mL/min/1.73m??? Normal >=60 [facility] Comment on above: Order Comment: Speci men Type: BLOOD SPECIMENOrdering Facility: [facility] Address: [address] [place] [address] Result Comment: Luzmaria mated Glomerular Filtration Rate [...] #### 2 4321-2, , 2776-05 ####[facility] LABORATORYCLIA [id number] [address] [place] Glucose [Mass/Vol] 106 mg/dL High 74-99 [facility] Comment on above: Order Comment: Speci men Type: BLOOD SPECIMENOrdering Facility: [facility] Address: [address] [place] [address] Result Comment: The [employer] (ADA) provides guidance for cutoff [...] Standards of Medical Care in Diabetes 2016, [employer]. Diabetes Care. 2016.39(Suppl 1). Performed By: #### 2 4321-2, , 2776-05 ####[facility] LABORATORYCLIA [id number] [place] [address] [place] Potassium [Moles/Vol] 4.1 mmol/L Normal 3.7-5.1 [facility] Comment on above: Order Comment: Speci men Type: BLOOD SPECIMENOrdering Facility: [facility] Address: [address] [place] [address] Performed By: #### 2 4321-2, , 2776-05 ####[facility] LABORATORYCLIA [id number] [place] [address] [place] Sodium [Moles/Vol] 135 mmol/L Low 136-144 [facility] Comment on above: Order Comment: Speci men Type: BLOOD SPECIMENOrdering Facility: [facility] Address: [address] Performed By: #### 2 4321-2, , 2776-05 ####[facility] LABORATORYCLIA [id number] [place] [address] [place] Urea nitrogen [Mass/Vol] 26 mg/dL High 9-24 [facility] Comment on above: Order Comment: Johni men Type: BLOOD SPECIMENOrdering Facility: [facility] Address: [address] [address] Performed By: #### 2 432-2, 07042-9, 2777-1 ####[facility] LABORATORYCLIA [id number] [place] [address] [place] CBC W Auto Differential pane l (Bld)on 08-09-2021 Basophils (Bld) [#/Vol] 0.06 10*3/uL Normal <0.11 [facility] Comment on above: Order Comment: Speci men Type: BLOOD SPECIMENOrdering Facility: [facility] Address: [address] [place] [address] Performed By: #### 5 7021-8 ####[facility] LABORATORYCLIA [id number] [address] Basophils/100 WBC (Bld) 0.5 % Normal [facility] Comment on above: Order Comment: Speci men Type: BLOOD SPECIMENOrdering Facility: [facility] Address: [address] [place] [address] Performed By: #### 5 7021-8 ####[facility] LABORATORYCLIA [id number] [address] Differential cell count method Nom (Bld) Auto Normal [facility] Comment on above: Order Comment: Speci men Type: BLOOD SPECIMENOrdering Facility: [facility] Address: [address] [place] [address] Performed By: #### 5 7021-8 ####[facility] LABORATORYCLIA [id number] [place] [address] [place] Eosinophils (Bld) [#/Vol] 0.42 10*3/uL Normal <0.46 [facility] Comment on above: Order Comment: Speci men Type: BLOOD SPECIMENOrdering Facility: [facility] Address: [address] [place] [address] Performed By: #### 5 7021-8 ####[facility] LABORATORYCLIA [id number] [address] Eosinophils/100 WBC (Bld) 3.8 % Normal [facility] Comment on above: Order Comment: Speci men Type: BLOOD SPECIMENOrdering Facility: [facility] Address: [address] [place] [address] Performed By: #### 5 7021-8 ####[facility] LABORATORYCLIA [id number] [address] Erythrocyte distribution width (RBC) [Ratio] 17.6 % High 11.5-15.0 [facility] Comment on above: Order Comment: Speci men Type: BLOOD SPECIMENOrdering Facility: [facility] Address: [address] [place] [address] Performed By: #### 5 7021-8 ####[facility] LABORATORYCLIA [id number] [address] Hematocrit (Bld) [Volume fraction] 29.3 % Low 39.0-51.0 [facility] Comment on above: Order Comment: Speci men Type: BLOOD SPECIMENOrdering Facility: [facility] Address: [address] [place] [address] Performed By: #### 5 7021-8 ####[facility] LABORATORYCLIA [id number] [address] [place] Hemoglobin (Bld) [Mass/Vol] 9.0 g/dL Low 13.0-17.0 [facility] Comment on above: Order Comment: Speci men Type: BLOOD SPECIMENOrdering Facility: [facility] Address: [address] [place] [address] Performed By: #### 5 7021-8 ####[facility] LABORATORYCLIA [id number] [address] [place] IMMATURE GRAN % 0.5 % Normal [facility] Comment on above: Order Comment: Speci men Type: BLOOD SPECIMENOrdering Facility: [facility] Address: [address] [place] [address] Performed By: #### 5 7021-8 ####[facility] LABORATORYCLIA [id number] [address] IMMATURE GRAN ABS 0.05 k/uL Normal <0.10 [facility] Comment on above: Order Comment: Speci men Type: BLOOD SPECIMENOrdering Facility: [facility] Address: [address] [place] [address] Performed By: #### 5 7021-8 ####[facility] LABORATORYCLIA [id number] [address] Lymphocytes (Bld) [#/Vol] 2.00 10*3/uL Normal 1.00-4.00 [facility] Comment on above: Order Comment: Speci men Type: BLOOD SPECIMENOrdering Facility: [facility] Address: [address] [place] [address] Performed By: #### 5 7021-8 ####[facility] LABORATORYCLIA [id number] [address] Lymphocytes/100 WBC (Bld) 18.1 % Normal [facility] Comment on above: Order Comment: Speci men Type: BLOOD SPECIMENOrdering Facility: [facility] Address: [address] [place] [address] Performed By: #### 5 7021-8 ####[facility] LABORATORYCLIA [id number] [address] MCH (RBC) [Entitic mass] 28.1 pg Normal 26.0-34.0 [facility] Comment on above: Order Comment: Speci men Type: BLOOD SPECIMENOrdering Facility: [facility] Address: [address] [place] [address] Performed By: #### 5 7021-8 ####[facility] LABORATORYCLIA [id number] [address] MCHC (RBC) [Mass/Vol] 30.7 g/dL Normal 30.5-36.0 [facility] Comment on above: Order Comment: Speci men Type: BLOOD SPECIMENOrdering Facility: [facility] Address: [address] [place] [address] Performed By: #### 5 7021-8 ####[facility] LABORATORYCLIA [id number] [place] [address] [place] MCV (RBC) [Entitic vol] 91.6 fL Normal 80.0-100.0 [facility] Comment on above: Order Comment: Speci men Type: BLOOD SPECIMENOrdering Facility: [facility] Address: [address] [place] [address] Performed By: #### 5 7021-8 ####[facility] LABORATORYCLIA [id number] [place] [address] [place] Monocytes (Bld) [#/Vol] 0.68 10*3/uL Normal <0.87 [facility] Comment on above: Order Comment: Speci men Type: BLOOD SPECIMENOrdering Facility: [facility] Address: [address] [place] [address] Performed By: #### 5 7021-8 ####[facility] LABORATORYCLIA [id number] [address] Monocytes/100 WBC (Bld) 6.2 % Normal [facility] Comment on above: Order Comment: Speci men Type: BLOOD SPECIMENOrdering Facility: [facility] Address: [address] [place] [address] Performed By: #### 5 7021-8 ####[facility] LABORATORYCLIA [id number] [place] [address] [place] Neutrophils (Bld) [#/Vol] 7.82 10*3/uL High 1.45-7.50 [facility] Comment on above: Order Comment: Speci men Type: BLOOD SPECIMENOrdering Facility: [facility] Address: [address] [place] [address] Performed By: #### 5 7021-8 ####[facility] LABORATORYCLIA [id number] [address] [place] Neutrophils/100 WBC (Bld) 70.9 % Normal [facility] Comment on above: Order Comment: Speci men Type: BLOOD SPECIMENOrdering Facility: [facility] Address: [address] [place] [address] Performed By: #### 5 7021-8 ####[facility] LABORATORYCLIA [id number] [address] Nucleated RBC (Bld) [#/Vol] 10*3/uL Normal <0.01 [facility] Comment on above: Order Comment: Speci men Type: BLOOD SPECIMENOrdering Facility: [facility] Address: [address] [place] [address] Performed By: #### 5 7021-8 ####[facility] LABORATORYCLIA [id number] [address] Nucleated RBC/100 WBC (Bld) [Ratio] 0.0 /100 WBC Normal [facility] Comment on above: Order Comment: Speci men Type: BLOOD SPECIMENOrdering Facility: [facility] Address: [address] [place] [address] Performed By: #### 5 7021-8 ####[facility] LABORATORYCLIA [id number] [address] [place] Platelet mean volume (Bld) [Entitic vol] 10.1 fL Normal 9.0-12.7 [facility] Comment on above: Order Comment: Speci men Type: BLOOD SPECIMENOrdering Facility: [facility] Address: [address] [place] [address] Performed By: #### 5 7021-8 ####[facility] LABORATORYCLIA [id number] [address] [place] Platelets (Bld) [#/Vol] 160 10*3/uL Normal 150-400 [facility] Comment on above: Order Comment: Speci men Type: BLOOD SPECIMENOrdering Facility: [facility] Address: [address] [place] [address] Performed By: #### 5 7021-8 ####[facility] LABORATORYCLIA [id number] [address] [place] RBC (Bld) [#/Vol] 3.20 10*6/uL Low 4.20-6.00 [facility] Comment on above: Order Comment: Speci men Type: BLOOD SPECIMENOrdering Facility: [facility] Address: [address] [place] [address] Performed By: #### 5 7021-8 ####[facility] LABORATORYCLIA [id number] [address] OF [facility] WBC (Bld) [#/Vol] 11.03 10*3/uL High 3.70-11.00 [facility] Comment on above: Order Comment: Speci men Type: BLOOD SPECIMENOrdering Facility: [facility] Address: [address] [place] [address] Performed By: #### 5 7021-8 ####[facility] LABORATORYCLIA [id number] [address] CONSULT PROGon 08-09-2021 CONSULT PROG Normal [facility] CT BRAIN WO IVCONon 08-10-19 CT BRAIN WO IVCON Normal [facility] CT BRAIN WO IVCON Normal [facility] Magnesium SerPl-mCncon 08-09 Magnesium [Mass/Vol] 2.0 mg/dL Normal 1.7-2.3 [facility] Comment on above: Order Comment: Speci men Type: BLOOD SPECIMENOrdering Facility: [facility] Address: [address] [place] [address] Performed By: #### 2 4321-2, 56344-9, 2777-1 ####[facility] LABORATORYCLIA [id number] [address] OF [facility] NURSING PROGon 08-09-2021 NURSING PROG Normal [facility] OPERATIVE NOon 08-09-2021 OPERATIVE NO Normal [facility] PT panel Coag (PPP)on 2021 INR Coag (PPP) [Relative time] 1.1 {INR} Normal 0.9-1.3 [facility] Comment on above: Order Comment: Speci men Type: BLOOD SPECIMENOrdering Facility: [facility] Address: [address] [place], [place] [id number] Result Comment: Yris min K Antagonist (VKA) Therapeutic Range: INR 2 to 3 (Target INR of 2.5)Note: For patients treated with VKA drugs, such as warfarin, the [employer] 2012 Guideline recommends [...] al. Chest 2012, 141:7S-47SNishimura RA, et al. [facility] 2017, 70: 252-289 Performed By: #### 3 4528-0, 67244-6 ####[facility]POLISIA [id number] [place] [address] [place] PT Coag (PPP) [Time] 11.7 s Normal 9.7-13.0 [facility] Comment on above: Order Comment: Shira feldman Type: BLOOD SPECIMENOrdering Facility: [facility] Address: [address] [place], [place] [address] Performed By: #### 3 4528-0, 21825-6 ####[facility] LABORATORYCLIA [id number] [place] [address] [place] Phosphate SerPl-mCncon 08-09 Phosphate [Mass/Vol] 4.0 mg/dL Normal 2.7-4.8 [facility] Comment on above: Order Comment: Shira feldman Type: BLOOD SPECIMENOrdering Facility: [facility] Address: [address] [place], [place] [address] Performed By: #### 2 4321-2, 62345-6, 2777-1 ####[facility] LABORATORYCLIA [id number] [address] [place] THERAPY NTon 08-09-2021 THERAPY NT Normal [facility] THERAPY NT Normal [facility] TYPE AND SCREENon 08-09-2021 ABO O Normal [facility] Comment on above: Order Comment: Speci men Type: BLOOD SPECIMENOrdering Facility: [facility] Address: [address] [place] [address] Performed By: #### T SCR ####[facility] BLOOD BANKCLIA [id number] [address] OF [facility] HISTORICAL AB SCR STATUS Negative Normal [facility] Comment on above: Order Comment: Speci men Type: BLOOD SPECIMENOrdering Facility: [facility] Address: [address] [place] [address] Performed By: #### T SCR ####[facility] BLOOD BANKCLIA [id number] [address] [place] Rh Nom (Bld) Positive Normal [facility] Comment on above: Order Comment: Speci men Type: BLOOD SPECIMENOrdering Facility: [facility] Address: [address] [place] [address] Performed By: #### T SCR ####[facility] BLOOD BANKCLIA [id number] [address] [place] TYPE AND SCREEN EXPIRATION 08/12/2021 23:59 Normal [facility] Comment on above: Order Comment: Speci men Type: BLOOD SPECIMENOrdering Facility: [facility] Address: [address] [place] [address] Performed By: #### T SCR ####[facility] BLOOD BANKCLIA [id number] [address] [place] XR ABD 2V SUPINE W UPR/DECUB /CTLon 08-09-2021 XR ABD 2V SUPINE W UPR/DECUB/CTL Normal [facility] XR CHEST 1V FRONTALon 2021 XR CHEST 1V FRONTAL Normal [facility] XR NECK SOFT TISSUE 2V AP/LA Ton 08-09-2021 XR NECK SOFT TISSUE 2V AP/LAT Normal [facility] XR SKULL 2V AP/LATon 022 XR SKULL 2V AP/LAT Normal [facility] aPTT PPPon 08-09-2021 aPTT Coag (PPP) [Time] 26.8 s Normal 23.0-32.4 [place] Comment on above: Order Comment: Speci men Type: BLOOD SPECIMENOrdering Facility: [facility] Address: [address] [place] [address] Performed By: #### 3 4528-0, 48987-0 ####[facility] LABORATORYCLIA [id number] [place] [address] [place] CASE MANAGEMon 08-08-2021 CASE MANAGEM Normal [facility] CBC W Auto Differential pane l (Bld)on 08-08-2021 Basophils (Bld) [#/Vol] 0.05 10*3/uL Normal <0.11 [facility] Comment on above: Order Comment: Speci men Type: BLOOD SPECIMENOrdering Facility: [facility] Address: [address] [place] [address] Performed By: #### 5 7021-8 ####[facility] LABORATORYCLIA [id number] [address] [place] Basophils/100 WBC (Bld) 0.5 % Normal [facility] Comment on above: Order Comment: Speci men Type: BLOOD SPECIMENOrdering Facility: [facility] Address: [address] [place] [address] Performed By: #### 5 7021-8 ####[facility] LABORATORYCLIA [id number] [address] [place] Differential cell count method Nom (Bld) Auto Normal [facility] Comment on above: Order Comment: Speci men Type: BLOOD SPECIMENOrdering Facility: [facility] Address: [address] [place] [address] Performed By: #### 5 7021-8 ####[facility]ATORYCLIA [id number] [address] [place] Eosinophils (Bld) [#/Vol] 0.17 10*3/uL Normal <0.46 [facility] Comment on above: Order Comment: Speci men Type: BLOOD SPECIMENOrdering Facility: [facility] Address: [address] [place] [address] Performed By: #### 5 7021-8 ####[facility]ATORYCLIA [id number] [address] Eosinophils/100 WBC (Bld) 1.6 % Normal [facility] Comment on above: Order Comment: Speci men Type: BLOOD SPECIMENOrdering Facility: [facility] Address: [address] [place] [address] Performed By: #### 5 7021-8 ####[facility] LABORATORYCLIA [id number] [address] Erythrocyte distribution width (RBC) [Ratio] 17.8 % High 11.5-15.0 [facility] Comment on above: Order Comment: Speci men Type: BLOOD SPECIMENOrdering Facility: [facility] Address: [address] [place] [address] Performed By: #### 5 7021-8 ####[facility]ORYCLIA [id number] [address] [place] Hematocrit (Bld) [Volume fraction] 29.6 % Low 39.0-51.0 [facility] Comment on above: Order Comment: Speci men Type: BLOOD SPECIMENOrdering Facility: [facility] Address: [address] [place] [address] Performed By: #### 5 7021-8 ####[facility] LABORATORYCLIA [id number] [address] [place] Hemoglobin (Bld) [Mass/Vol] 9.0 g/dL Low 13.0-17.0 [facility] Comment on above: Order Comment: Speci men Type: BLOOD SPECIMENOrdering Facility: [facility] Address: [address] [place] [address] Performed By: #### 5 7021-8 ####[facility]ORYCLIA [id number] [address] IMMATURE GRAN % 0.5 % Normal [facility] Comment on above: Order Comment: Speci men Type: BLOOD SPECIMENOrdering Facility: [facility] Address: [address] [place] [address] Performed By: #### 5 7021-8 ####[facility] LABORATORYCLIA [id number] [address] IMMATURE GRAN ABS 0.05 k/uL Normal <0.10 [facility] Comment on above: Order Comment: Speci men Type: BLOOD SPECIMENOrdering Facility: [facility] Address: [address] [place] [address] Performed By: #### 5 7021-8 ####[facility]ORATORYCLIA [id number] [address] Lymphocytes (Bld) [#/Vol] 1.93 10*3/uL Normal 1.00-4.00 [facility] Comment on above: Order Comment: Speci men Type: BLOOD SPECIMENOrdering Facility: [facility] Address: [address] [place] [address] Performed By: #### 5 7021-8 ####[facility]ORATORYCLIA [id number] [address] Lymphocytes/100 WBC (Bld) 18.2 % Normal [facility] Comment on above: Order Comment: Speci men Type: BLOOD SPECIMENOrdering Facility: [facility] Address: [address] [place] [address] Performed By: #### 5 7021-8 ####[facility]ATORYCLIA [id number] [address] [place] MCH (RBC) [Entitic mass] 28.1 pg Normal 26.0-34.0 [facility] Comment on above: Order Comment: Speci men Type: BLOOD SPECIMENOrdering Facility: [facility] Address: [address] [place] [address] Performed By: #### 5 7021-8 ####[facility]ORATORYCLIA [id number] [address] [place] MCHC (RBC) [Mass/Vol] 30.4 g/dL Low 30.5-36.0 [facility] Comment on above: Order Comment: Speci men Type: BLOOD SPECIMENOrdering Facility: [facility] Address: [address] [place] [address] Performed By: #### 5 7021-8 ####[facility]ORATORYCLIA [id number] [address] [place] MCV (RBC) [Entitic vol] 92.5 fL Normal 80.0-100.0 [facility] Comment on above: Order Comment: Speci men Type: BLOOD SPECIMENOrdering Facility: [facility] Address: [address] [place] [address] Performed By: #### 5 7021-8 ####[facility]ORATORYCLIA [id number] [address] [place] Monocytes (Bld) [#/Vol] 0.75 10*3/uL Normal <0.87 [facility] Comment on above: Order Comment: Speci men Type: BLOOD SPECIMENOrdering Facility: [facility] Address: [address] [place] [address] Performed By: #### 5 7021-8 ####[facility]ORATORYCLIA [id number] [address] Monocytes/100 WBC (Bld) 7.1 % Normal [facility] Comment on above: Order Comment: Speci men Type: BLOOD SPECIMENOrdering Facility: [facility] Address: [address] [place] [address] Performed By: #### 5 7021-8 ####[facility]ORATORYCLIA [id number] [address] [place] Neutrophils (Bld) [#/Vol] 7.65 10*3/uL High 1.45-7.50 [facility] Comment on above: Order Comment: Speci men Type: BLOOD SPECIMENOrdering Facility: [facility] Address: [address] [place] [address] Performed By: #### 5 7021-8 ####[facility]ORATORYCLIA [id number] [address] [place] Neutrophils/100 WBC (Bld) 72.1 % Normal [facility] Comment on above: Order Comment: Speci men Type: BLOOD SPECIMENOrdering Facility: [facility] Address: [address] [place] [address] Performed By: #### 5 7021-8 ####[facility]ORATORYCLIA [id number] [address] [place] Nucleated RBC (Bld) [#/Vol] 10*3/uL Normal <0.01 [facility] Comment on above: Order Comment: Speci men Type: BLOOD SPECIMENOrdering Facility: [facility] Address: [address] [place] [address] Performed By: #### 5 7021-8 ####[facility]ORATORYCLIA [id number] [address] [place] Nucleated RBC/100 WBC (Bld) [Ratio] 0.0 /100 WBC Normal [facility] Comment on above: Order Comment: Speci men Type: BLOOD SPECIMENOrdering Facility: [facility] Address: [address] [place] [address] Performed By: #### 5 7021-8 ####[facility]ORATORYCLIA [id number] [address] [place] Platelet mean volume (Bld) [Entitic vol] 9.8 fL Normal 9.0-12.7 [facility] Comment on above: Order Comment: Speci men Type: BLOOD SPECIMENOrdering Facility: [facility] Address: [address] [place] [address] Performed By: #### 5 7021-8 ####[facility]ORATORYCLIA [id number] [address] Platelets (Bld) [#/Vol] 175 10*3/uL Normal 150-400 [facility] Comment on above: Order Comment: Speci men Type: BLOOD SPECIMENOrdering Facility: [facility] Address: [address] [place] [address] Performed By: #### 5 7021-8 ####[facility]ORATORYCLIA [id number] [address] [place] RBC (Bld) [#/Vol] 3.20 10*6/uL Low 4.20-6.00 [facility] Comment on above: Order Comment: Speci men Type: BLOOD SPECIMENOrdering Facility: [facility] Address: [address] [place] [address] Performed By: #### 5 7021-8 ####[facility]ORATORYCLIA [id number] [address] WBC (Bld) [#/Vol] 10.60 10*3/uL Normal 3.70-11.00 [facility] Comment on above: Order Comment: Speci men Type: BLOOD SPECIMENOrdering Facility: [facility] Address: [address] [place] [address] Performed By: #### 5 7021-8 ####[facility]ORATORYCLIA [id number] [address] BRAIN WO IVCONon 08-09-19 CT BRAIN WO IVCON Normal [facility] NURSING PROGon 08-08-2021 NURSING PROG Normal [facility] Prealbumin [Mass/Vol]on Prealbumin Nephelometry [Mass/Vol] 29 mg/dL Normal 17-36 [facility] Comment on above: Order Comment: Speci men Type: BLOOD SPECIMENOrdering Facility: [facility] Address: [address] [place] [address] Performed By: #### 1 4338-8 ####[facility]ORATORYCLIA [id number] [address] OF [facility] SARS-CoV-2 RNA Resp Ql MEGAN+p robeon 08-08-2021 SARS-CoV-2 (COVID-19) RNA MEGAN+probe Ql (Resp) COVID 19 RESULT: SARS-CoV-2 (Agent of COVID-19) Not Detected by RT-PCR or equivalent method. This test has been authorized by FDA under an Emergency Use Authorization (EUA). Normal [facility] Comment on above: Performed By: #### 9 4500-6 ####[facility] LABORATORYCLIA [id number] [place] [address] [place] ALLIED HEALTHon 08-07-2021 ALLIED HEALTH Normal [facility] Basic metabolic 2000 panelon 08-07-2021 Anion gap [Moles/Vol] 9 mmol/L Normal 9-18 [facility] Comment on above: Order Comment: Speci men Type: BLOOD SPECIMENOrdering Facility: [facility] Address: [address] [address] Performed By: #### 2 4321-2, 2776-05, , [facility] ####[facility] LABORATORYCLIA [id number] [place] [address] [place] Calcium [Mass/Vol] 9.4 mg/dL Normal 8.5-10.2 [facility] Comment on above: Order Comment: Speci men Type: BLOOD SPECIMENOrdering Facility: [facility] Address: [address] [address] Performed By: #### 2 4321-2, 277-, , HFP ####[facility]ORATORYCLIA [id number] [place] [address] [place] Chloride [Moles/Vol] 98 mmol/L Normal 97-105 [facility] Comment on above: Order Comment: Speci men Type: BLOOD SPECIMENOrdering Facility: [facility] Address: [address] [address] Performed By: #### 2 4321-2, 2777-1, , [facility] ####[facility]PITALCLIA [id number] [address] STATES OF [facility] CO2 [Moles/Vol] 29 mmol/L Normal 22-30 [facility] Comment on above: Order Comment: Speci men Type: BLOOD SPECIMENOrdering Facility: [facility] Address: [address] [place] [address] Performed By: #### 2 4321-2, 277-, , HFP ####[facility]IA [id number] [address] Creatinine [Mass/Vol] 0.67 mg/dL Low 0.73-1.22 [facility] Comment on above: Order Comment: Speci men Type: BLOOD SPECIMENOrdering Facility: [facility] Address: [address] [place] [address] Performed By: #### 2 4321-2, 2776-05, , HFP ####[facility]ISIA [id number] [address] ESTIMATED GLOMERULAR FILTRATION RATE 101 mL/min/1.73m??? Normal >=60 [facility] Comment on above: Order Comment: Speci men Type: BLOOD SPECIMENOrdering Facility: [facility] Address: [address] [place] [address] Result Comment: Luzmaria mated Glomerular Filtration Rate [...] By: #### 2 4321-2, 2777-, , HFP ####[facility]ORATORYCLIA [id number] [address] [place] Glucose [Mass/Vol] 117 mg/dL High 74-99 [facility] Comment on above: Order Comment: Speci men Type: BLOOD SPECIMENOrdering Facility: [facility] Address: [address] [place] [address] Result Comment: The [place] [employer] (ADA) provides guidance for cutoff [...] Standards of Medical Care in Diabetes 2016, [place] [employer]. Diabetes Care. 2016.39(Suppl 1). Performed By: #### 2 4321-2, 2776-05, , [facility] ####[facility] LABORATORYCLIA [id number] [place] [address] [place] Potassium [Moles/Vol] 4.1 mmol/L Normal 3.7-5.1 [facility] Comment on above: Order Comment: Shira feldman Type: BLOOD SPECIMENOrdering Facility: [facility] Address: [address] [place], [place] [address] Performed By: #### 2 4321-2, 27711-04, , [facility] ####[facility]ORATORYCLIA [id number] [place] [address] [place] Sodium [Moles/Vol] 136 mmol/L Normal 136-144 [facility] Comment on above: Order Comment: Shira feldman Type: BLOOD SPECIMENOrdering Facility: [facility] Address: [address] [place] [address] Performed By: #### 2 4321-2, 2776-05, , [facility] ####[facility]ORATORYCLIA [id number] [place] [address] [place] Urea nitrogen [Mass/Vol] 31 mg/dL High 9-24 [facility] Comment on above: Order Comment: Speci men Type: BLOOD SPECIMENOrdering Facility: [facility] Address: [address] [place] [address] Performed By: #### 2 4321-2, 2777-1, 53843-5, HFP ####[facility]ATORYCLIA [id number] [place] [address] [place] CBC W Auto Differential pane l (Bld)on 08-07-2021 Basophils (Bld) [#/Vol] 0.03 10*3/uL Normal <0.11 [facility] Comment on above: Order Comment: Speci men Type: BLOOD SPECIMENOrdering Facility: [facility] Address: [address] [place] [address] Performed By: #### 5 7021-8 ####[facility]ORATORYCLIA [id number] [place] [address] [place] Basophils/100 WBC (Bld) 0.3 % Normal [facility] Comment on above: Order Comment: Speci men Type: BLOOD SPECIMENOrdering Facility: [facility] Address: [address] [place] [address] Performed By: #### 5 7021-8 ####[facility]ORATORYCLIA [id number] [address] STATES [facility] Differential cell count method Nom (Bld) Auto Normal [facility] Comment on above: Order Comment: Speci men Type: BLOOD SPECIMENOrdering Facility: [facility] Address: [address] [place] [address] Performed By: #### 5 7021-8 ####[facility]ATORYCLIA [id number] [place] [address] [place] Eosinophils (Bld) [#/Vol] 0.16 10*3/uL Normal <0.46 [facility] Comment on above: Order Comment: Speci men Type: BLOOD SPECIMENOrdering Facility: [facility] Address: [address] [place], [place] [address] Performed By: #### 5 7021-8 ####[facility]ORYCLIA [id number] [address] [place] Eosinophils/100 WBC (Bld) 1.6 % Normal [facility] Comment on above: Order Comment: Speci men Type: BLOOD SPECIMENOrdering Facility: [facility] Address: [address] [place] [address] Performed By: #### 5 7021-8 ####[facility]ORATORYCLIA [id number] [address] [place] Erythrocyte distribution width (RBC) [Ratio] 18.1 % High 11.5-15.0 [facility] Comment on above: Order Comment: Speci men Type: BLOOD SPECIMENOrdering Facility: [facility] Address: [address] [place] [address] Performed By: #### 5 7021-8 ####[facility]ORATORYCLIA [id number] [address] Hematocrit (Bld) [Volume fraction] 30.6 % Low 39.0-51.0 [facility] Comment on above: Order Comment: Speci men Type: BLOOD SPECIMENOrdering Facility: [facility] Address: [address] [place] [address] Performed By: #### 5 7021-8 ####[facility]ORATORYCLIA [id number] [address] [place] Hemoglobin (Bld) [Mass/Vol] 9.4 g/dL Low 13.0-17.0 [facility] Comment on above: Order Comment: Speci men Type: BLOOD SPECIMENOrdering Facility: [facility] Address: [address] [place] [address] Performed By: #### 5 7021-8 ####[facility]ORYCLIA [id number] [address] [place] IMMATURE GRAN % 0.4 % Normal [facility] Comment on above: Order Comment: Speci men Type: BLOOD SPECIMENOrdering Facility: [facility] Address: [address] [place] [address] Performed By: #### 5 7021-8 ####[facility]ORATORYCLIA [id number] [address] IMMATURE GRAN ABS 0.04 k/uL Normal <0.10 [facility] Comment on above: Order Comment: Speci men Type: BLOOD SPECIMENOrdering Facility: [facility] Address: [address] [place] [address] Performed By: #### 5 7021-8 ####[facility]ORATORYCLIA [id number] [address] Lymphocytes (Bld) [#/Vol] 2.05 10*3/uL Normal 1.00-4.00 [facility] Comment on above: Order Comment: Speci men Type: BLOOD SPECIMENOrdering Facility: [facility] Address: [address] [place] [address] Performed By: #### 5 7021-8 ####[facility]ORATORYCLIA [id number] [address] Lymphocytes/100 WBC (Bld) 20.2 % Normal [facility] Comment on above: Order Comment: Speci men Type: BLOOD SPECIMENOrdering Facility: [facility] Address: [address] [place] [address] Performed By: #### 5 7021-8 ####[facility]ORATORYCLIA [id number] [address] MCH (RBC) [Entitic mass] 28.8 pg Normal 26.0-34.0 [facility] Comment on above: Order Comment: Speci men Type: BLOOD SPECIMENOrdering Facility: [facility] Address: [address] [place] [address] Performed By: #### 5 7021-8 ####[facility]ORATORYCLIA [id number] [address] MCHC (RBC) [Mass/Vol] 30.7 g/dL Normal 30.5-36.0 [facility] Comment on above: Order Comment: Speci men Type: BLOOD SPECIMENOrdering Facility: [facility] Address: [address] [place] [address] Performed By: #### 5 7021-8 ####[facility]ORATORYCLIA [id number] [address] [place] MCV (RBC) [Entitic vol] 93.9 fL Normal 80.0-100.0 [facility] Comment on above: Order Comment: Speci men Type: BLOOD SPECIMENOrdering Facility: [facility] Address: [address] [place] [address] Performed By: #### 5 7021-8 ####[facility]ORATORYCLIA [id number] [address] [place] Monocytes (Bld) [#/Vol] 0.64 10*3/uL Normal <0.87 [facility] Comment on above: Order Comment: Speci men Type: BLOOD SPECIMENOrdering Facility: [facility] Address: [address] [place] [address] Performed By: #### 5 7021-8 ####[facility]ORATORYCLIA [id number] [address] [place] Monocytes/100 WBC (Bld) 6.3 % Normal [facility] Comment on above: Order Comment: Speci men Type: BLOOD SPECIMENOrdering Facility: [facility] Address: [address] [place] [address] Performed By: #### 5 7021-8 ####[facility]ORATORYCLIA [id number] [place] [address] [place] Neutrophils (Bld) [#/Vol] 7.22 10*3/uL Normal 1.45-7.50 [facility] Comment on above: Order Comment: Speci men Type: BLOOD SPECIMENOrdering Facility: [facility] Address: [address] [place] [address] Performed By: #### 5 7021-8 ####[facility]ORYCLIA [id number] [address] Neutrophils/100 WBC (Bld) 71.2 % Normal [facility] Comment on above: Order Comment: Speci men Type: BLOOD SPECIMENOrdering Facility: [facility] Address: [address] [place] [address] Performed By: #### 5 7021-8 ####[facility]ATORYCLIA [id number] [address] [place] Nucleated RBC (Bld) [#/Vol] 10*3/uL Normal <0.01 [facility] Comment on above: Order Comment: Speci men Type: BLOOD SPECIMENOrdering Facility: [facility] Address: [address] [place] [address] Performed By: #### 5 7021-8 ####[facility]ORATORYCLIA [id number] [address] Nucleated RBC/100 WBC (Bld) [Ratio] 0.0 /100 WBC Normal [facility] Comment on above: Order Comment: Speci men Type: BLOOD SPECIMENOrdering Facility: [facility] Address: [address] [place] [address] Performed By: #### 5 7021-8 ####[facility]ORATORYCLIA [id number] [address] [place] Platelet mean volume (Bld) [Entitic vol] 9.9 fL Normal 9.0-12.7 [facility] Comment on above: Order Comment: Speci men Type: BLOOD SPECIMENOrdering Facility: [facility] Address: [address] [place] [address] Performed By: #### 5 7021-8 ####[facility] LABORATORYCLIA [id number] [address] [place] Platelets (Bld) [#/Vol] 227 10*3/uL Normal 150-400 [facility] Comment on above: Order Comment: Speci men Type: BLOOD SPECIMENOrdering Facility: [facility] Address: [address] [place] [address] Performed By: #### 5 7021-8 ####[facility] LABORATORYCLIA [id number] [address] RBC (Bld) [#/Vol] 3.26 10*6/uL Low 4.20-6.00 [facility] Comment on above: Order Comment: Speci men Type: BLOOD SPECIMENOrdering Facility: [facility] Address: [address] [place] [address] Performed By: #### 5 7021-8 ####[facility] LABORATORYCLIA [id number] [address] WBC (Bld) [#/Vol] 10.14 10*3/uL Normal 3.70-11.00 [facility] Comment on above: Order Comment: Speci men Type: BLOOD SPECIMENOrdering Facility: [facility] Address: [address] [place] [address] Performed By: #### 5 7021-8 ####[facility] [facility]ATORYCLIA [id number] [address] BRAIN WO IVCONon 08-08-19 CT BRAIN WO IVCON Normal [facility] HEPATIC FUNCTION PNLon 08-07 Albumin [Mass/Vol] 3.6 g/dL Low 3.9-4.9 [facility] Comment on above: Order Comment: Speci men Type: BLOOD SPECIMENOrdering Facility: [facility] Address: [address] [place] [address] Performed By: #### 2 4321-2, 2777-1, 15814-8, HFP ####[facility] LABORATORYCLIA [id number] [address] ALP [Catalytic activity/Vol] 124 U/L High 38-113 [facility] Comment on above: Order Comment: Speci men Type: BLOOD SPECIMENOrdering Facility: [facility] Address: [address] [place] [address] Performed By: #### 2 4321-2, 7-1, , HFP ####[facility]ORATORYCLIA [id number] [address] [facility] ALT With P-5'-P [Catalytic activity/Vol] 29 U/L Normal 10-54 [facility] Comment on above: Order Comment: Speci men Type: BLOOD SPECIMENOrdering Facility: [facility] Address: [address] [place] [address] Performed By: #### 2 4321-2, 2776-1, , HFP ####[facility]ORATORYCLIA [id number] [address] [facility] AST With P-5'-P [Catalytic activity/Vol] 18 U/L Normal 14-40 [facility] Comment on above: Order Comment: Speci men Type: BLOOD SPECIMENOrdering Facility: [facility] Address: [address] [place] [address] Performed By: #### 2 4321-2, 2776-, , HFP ####[facility]ORATORYCLIA [id number] [address] [facility] Bilirubin [Mass/Vol] 0.3 mg/dL Normal 0.2-1.3 [facility] Comment on above: Order Comment: Speci men Type: BLOOD SPECIMENOrdering Facility: [facility] Address: [address] [address] Performed By: #### 2 4321-2, 277-1, , HFP ####[facility]ORATORYCLIA [id number] [address] Bilirubin.conjugated [Mass/Vol] mg/dL Normal <0.2 [facility] Comment on above: Order Comment: Speci men Type: BLOOD SPECIMENOrdering Facility: [facility] Address: [address] [address] Performed By: #### 2 4321-2, 2776-05, , HFP ####[facility]ORATORYCLIA [id number] [address] STATES [facility] Protein [Mass/Vol] 6.4 g/dL Normal 6.3-8.0 [facility] Comment on above: Order Comment: Speci men Type: BLOOD SPECIMENOrdering Facility: [facility] Address: [address] [place] [address] Performed By: #### 2 4321-2, 2776-05, , HFP ####[facility]ATORYCLIA [id number] [address] Magnesium SerPl-mCncon 08-07 Magnesium [Mass/Vol] 2.3 mg/dL Normal 1.7-2.3 [facility] Comment on above: Order Comment: Speci men Type: BLOOD SPECIMENOrdering Facility: [facility] Address: [address] [place] [address] Performed By: #### 2 4321-2, 2776-05, , HFP ####[facility]ATORYCLIA [id number] [address] NURSING PROGon 08-07-2021 NURSING PROG Normal [facility] Phosphate SerPl-mCncon 08-07 Phosphate [Mass/Vol] 3.5 mg/dL Normal 2.7-4.8 [facility] Comment on above: Order Comment: Speci men Type: BLOOD SPECIMENOrdering Facility: [facility] Address: [address] [place] [address] Performed By: #### 2 4321-2, 2776-05, , HFP ####[facility]ORYCLIA [id number] [address] [place] ANES POSTPROC EVALon 022 ANES POSTPROC EVAL Normal [facility] Basic metabolic 2000 panelon 08-06-2021 Anion gap [Moles/Vol] 11 mmol/L Normal 9-18 [facility] Comment on above: Order Comment: Speci men Type: BLOOD SPECIMENOrdering Facility: [facility] Address: [address] [place] [address] Performed By: #### 2 4321-2, 2776-05, ####[facility]ORATORYCLIA [id number] [place] [address] [place] Calcium [Mass/Vol] 8.2 mg/dL Low 8.5-10.2 [facility] Comment on above: Order Comment: Speci men Type: BLOOD SPECIMENOrdering Facility: [facility] Address: [address] [place] [address] Performed By: #### 2 4321-2, 2776-05, ####[facility]ORATORYCLIA [id number] [place] [address] [place] Chloride [Moles/Vol] 100 mmol/L Normal 97-105 [facility] Comment on above: Order Comment: Speci men Type: BLOOD SPECIMENOrdering Facility: [facility] Address: [address] [place] [address] Performed By: #### 2 4321-2, 2776-05, ####[facility]ATORYCLIA [id number] [place] [address] [place] CO2 [Moles/Vol] 23 mmol/L Normal 22-30 [facility] Comment on above: Order Comment: Speci men Type: BLOOD SPECIMENOrdering Facility: [facility] Address: [address] [place] [address] Performed By: #### 2 4321-2, 2776-05, ####[facility]ATORYCLIA [id number] [place] [address] [place] Creatinine [Mass/Vol] 0.55 mg/dL Low 0.73-1.22 [facility] Comment on above: Order Comment: Speci men Type: BLOOD SPECIMENOrdering Facility: [facility] Address: [address] [place] [address] Performed By: #### 2 4321-2, 2777-, ####[facility] HOSPITALCLIA [id number] [address] [facility] ESTIMATED GLOMERULAR FILTRATION RATE 107 mL/min/1.73m??? Normal >=60 [facility] Comment on above: Order Comment: Shira feldman Type: BLOOD SPECIMENOrdering Facility: [facility] Address: [address] [place] [address] Result Comment: Luzmaria mated Glomerular Filtration Rate [...] 2 4321-2, 2777-, ####[facility]NAPOLISIA [id number] [place] [address] [place] Glucose [Mass/Vol] 275 mg/dL High 74-99 [facility] Comment on above: Order Comment: Shira feldman Type: BLOOD SPECIMENOrdering Facility: [facility] Address: [address] [place] [address] Result Comment: The [place] [employer] (ADA) provides guidance for cutoff [...] Standards of Medical Care in Diabetes 2016, [place] [employer]. Diabetes Care. 2016.39(Suppl 1). Performed By: #### 2 4321-2, 2777-, ####[facility]ORATORYCLIA [id number] [place] [address] [place] Potassium [Moles/Vol] 3.6 mmol/L Low 3.7-5.1 [facility] Comment on above: Order Comment: Speci men Type: BLOOD SPECIMENOrdering Facility: [facility] Address: [address] [place] [address] Performed By: #### 2 4321-2, 2777-1, ####[facility]ATORYCLIA [id number] [address] STATES OF [facility] Sodium [Moles/Vol] 134 mmol/L Low 136-144 [facility] Comment on above: Order Comment: Speci men Type: BLOOD SPECIMENOrdering Facility: [facility] Address: [address] [place] [address] Performed By: #### 2 4321-2, 277-1, ####[facility]ATORYCLIA [id number] [address] STATES [facility] Urea nitrogen [Mass/Vol] 29 mg/dL High 9-24 [facility] Comment on above: Order Comment: Speci men Type: BLOOD SPECIMENOrdering Facility: [facility] Address: [address] [place] [address] Performed By: #### 2 4321-2, 27711-04, ####[facility]ATORYCLIA [id number] [address] [place] CBC W Auto Differential pane l (Bld)on 08-06-2021 Basophils (Bld) [#/Vol] 0.03 10*3/uL Normal <0.11 [facility] Comment on above: Order Comment: Speci men Type: BLOOD SPECIMENOrdering Facility: [facility] Address: [address] [place] [address] Performed By: #### 5 7021-8 ####[facility]ATORYCLIA [id number] [address] Basophils/100 WBC (Bld) 0.3 % Normal [facility] Comment on above: Order Comment: Speci men Type: BLOOD SPECIMENOrdering Facility: [facility] Address: [address] [place] [address] Performed By: #### 5 7021-8 ####[facility]ATORYCLIA [id number] [address] Differential cell count method Nom (Bld) Auto Normal [facility] Comment on above: Order Comment: Speci men Type: BLOOD SPECIMENOrdering Facility: [facility] Address: [address] [place] [address] Performed By: #### 5 7021-8 ####[facility]ATORYCLIA [id number] [address] Eosinophils (Bld) [#/Vol] 0.18 10*3/uL Normal <0.46 [facility] Comment on above: Order Comment: Speci men Type: BLOOD SPECIMENOrdering Facility: [facility] Address: [address] [place] [address] Performed By: #### 5 7021-8 ####[facility]ORYCLIA [id number] [address] Eosinophils/100 WBC (Bld) 1.6 % Normal [facility] Comment on above: Order Comment: Speci men Type: BLOOD SPECIMENOrdering Facility: [facility] Address: [address] [place] [address] Performed By: #### 5 7021-8 ####[facility]ATORYCLIA [id number] [address] Erythrocyte distribution width (RBC) [Ratio] 17.9 % High 11.5-15.0 [facility] Comment on above: Order Comment: Speci men Type: BLOOD SPECIMENOrdering Facility: [facility] Address: [address] [place] [address] Performed By: #### 5 7021-8 ####[facility]ATORYCLIA [id number] [address] [place] Hematocrit (Bld) [Volume fraction] 27.6 % Low 39.0-51.0 [facility] Comment on above: Order Comment: Speci men Type: BLOOD SPECIMENOrdering Facility: [facility] Address: [address] [place] [address] Performed By: #### 5 7021-8 ####[facility]ORYCLIA [id number] [address] [place] Hemoglobin (Bld) [Mass/Vol] 8.5 g/dL Low 13.0-17.0 [facility] Comment on above: Order Comment: Speci men Type: BLOOD SPECIMENOrdering Facility: [facility] Address: [address] [place] [address] Performed By: #### 5 7021-8 ####[facility]ORYCLIA [id number] [address] IMMATURE GRAN % 0.6 % Normal [facility] Comment on above: Order Comment: Speci men Type: BLOOD SPECIMENOrdering Facility: [facility] Address: [address] [place] [address] Performed By: #### 5 7021-8 ####[facility]ATORYCLIA [id number] [address] IMMATURE GRAN ABS 0.07 k/uL Normal <0.10 [facility] Comment on above: Order Comment: Speci men Type: BLOOD SPECIMENOrdering Facility: [facility] Address: [address] [place] [address] Performed By: #### 5 7021-8 ####[facility]ATORYCLIA [id number] [address] [place] Lymphocytes (Bld) [#/Vol] 1.81 10*3/uL Normal 1.00-4.00 [facility] Comment on above: Order Comment: Speci men Type: BLOOD SPECIMENOrdering Facility: [facility] Address: [address] [place] [address] Performed By: #### 5 7021-8 ####[facility]ORYCLIA [id number] [address] Lymphocytes/100 WBC (Bld) 15.7 % Normal [facility] Comment on above: Order Comment: Speci men Type: BLOOD SPECIMENOrdering Facility: [facility] Address: [address] [place] [address] Performed By: #### 5 7021-8 ####[facility]ORYCLIA [id number] [address] MCH (RBC) [Entitic mass] 28.6 pg Normal 26.0-34.0 [facility] Comment on above: Order Comment: Speci men Type: BLOOD SPECIMENOrdering Facility: [facility] Address: [address] [place] [address] Performed By: #### 5 7021-8 ####[facility]ATORYCLIA [id number] [address] MCHC (RBC) [Mass/Vol] 30.8 g/dL Normal 30.5-36.0 [facility] Comment on above: Order Comment: Speci men Type: BLOOD SPECIMENOrdering Facility: [facility] Address: [address] [place] [address] Performed By: #### 5 7021-8 ####[facility]ATORYCLIA [id number] [address] MCV (RBC) [Entitic vol] 92.9 fL Normal 80.0-100.0 [facility] Comment on above: Order Comment: Speci men Type: BLOOD SPECIMENOrdering Facility: [facility] Address: [address] [place] [address] Performed By: #### 5 7021-8 ####[facility]ATORYCLIA [id number] [address] Monocytes (Bld) [#/Vol] 0.63 10*3/uL Normal <0.87 [facility] Comment on above: Order Comment: Speci men Type: BLOOD SPECIMENOrdering Facility: [facility] Address: [address] [place] [address] Performed By: #### 5 7021-8 ####[facility]ORATORYCLIA [id number] [address] [place] Monocytes/100 WBC (Bld) 5.5 % Normal [facility] Comment on above: Order Comment: Speci men Type: BLOOD SPECIMENOrdering Facility: [facility] Address: [address] [place] [address] Performed By: #### 5 7021-8 ####[facility] LABORATORYCLIA [id number] [address] [place] Neutrophils (Bld) [#/Vol] 8.78 10*3/uL High 1.45-7.50 [facility] Comment on above: Order Comment: Speci men Type: BLOOD SPECIMENOrdering Facility: [facility] Address: [address] [place] [address] Performed By: #### 5 7021-8 ####[facility]ORYCLIA [id number] [address] [place] Neutrophils/100 WBC (Bld) 76.3 % Normal [facility] Comment on above: Order Comment: Speci men Type: BLOOD SPECIMENOrdering Facility: [facility] Address: [address] [place] [address] Performed By: #### 5 7021-8 ####[facility]ORYCLIA [id number] [address] [place] Nucleated RBC (Bld) [#/Vol] 10*3/uL Normal <0.01 [facility] Comment on above: Order Comment: Speci men Type: BLOOD SPECIMENOrdering Facility: [facility] Address: [address] [place] [address] Performed By: #### 5 7021-8 ####[facility] LABORATORYCLIA [id number] [address] [place] Nucleated RBC/100 WBC (Bld) [Ratio] 0.0 /100 WBC Normal [facility] Comment on above: Order Comment: Speci men Type: BLOOD SPECIMENOrdering Facility: [facility] Address: [address] [place] [address] Performed By: #### 5 7021-8 ####[facility]ORYCLIA [id number] [address] [place] Platelet mean volume (Bld) [Entitic vol] 9.9 fL Normal 9.0-12.7 [facility] Comment on above: Order Comment: Speci men Type: BLOOD SPECIMENOrdering Facility: [facility] Address: [address] [place] [address] Performed By: #### 5 7021-8 ####[facility]ORYCLIA [id number] [address] [place] Platelets (Bld) [#/Vol] 230 10*3/uL Normal 150-400 [facility] Comment on above: Order Comment: Speci men Type: BLOOD SPECIMENOrdering Facility: [facility] Address: [address] [place] [address] Performed By: #### 5 7021-8 ####[facility]ORYCLIA [id number] [address] [place] RBC (Bld) [#/Vol] 2.97 10*6/uL Low 4.20-6.00 [facility] Comment on above: Order Comment: Speci men Type: BLOOD SPECIMENOrdering Facility: [facility] Address: [address] [place], [place] [address] Performed By: #### 5 7021-8 ####[facility]ORYCLIA [id number] [address] [place] WBC (Bld) [#/Vol] 11.50 10*3/uL High 3.70-11.00 [facility] Comment on above: Order Comment: Speci men Type: BLOOD SPECIMENOrdering Facility: [facility] Address: [address] [place] [address] Performed By: #### 5 7021-8 ####[facility]ORYCLIA [id number] [address] [place] CONSULT PROGon 08-06-2021 CONSULT PROG Normal [facility] Magnesium SerPl-mCncon 08-06 Magnesium [Mass/Vol] 1.9 mg/dL Normal 1.7-2.3 [facility] Comment on above: Order Comment: Speci men Type: BLOOD SPECIMENOrdering Facility: [facility] Address: [address] [place] [address] Performed By: #### 2 4321-2, 2777-1, 56743-2 ####[facility]ORYCLIA [id number] [address] NURSING PROGon 08-06-2021 NURSING PROG Normal [facility] OPERATIVE NOon 08-06-2021 OPERATIVE NO Normal [facility] Phosphate SerPl-mCncon 08-06 Phosphate [Mass/Vol] 4.2 mg/dL Normal 2.7-4.8 [facility] Comment on above: Order Comment: Speci men Type: BLOOD SPECIMENOrdering Facility: [facility] Address: [address] [place] [address] Performed By: #### 2 4321-2, 2777-1, ####[facility]ORYCLIA [id number] [address] [place] ALLIED HEALTHon 08-05-2021 ALLIED HEALTH Normal [facility] ALLIED HEALTH Normal [facility] ANES PRE-OPon 08-05-2021 ANES PRE-OP Normal [facility] BRIEF OP NOTon 08-05-2021 BRIEF OP NOT Normal [facility] Bacteria Spec Resp Culton Bacteria identified Respiratory culture Nom (Unsp spec) CULTURE, RESPIRATORY: Few Normal respiratory chris present ORGANISM ID: 1 Few Proteus species Insignificant colony count. No further workup. GRAM STAIN: No organisms seen Few Polymorphonuclear leukocytes Few Epithelial cells Abnormal [facility] Comment on above: Performed By: #### 3 2355-0 ####[facility]ORYCLIA [id number] [address] Bacteria Ur Culton 2 Bacteria identified Cx Nom (U) CULTURE, URINE: No growth (<1,000 CFU/ml) Normal [facility] Comment on above: Performed By: #### 6 30-4 ####[facility]ORYCLIA [id number] [address] [place] Basic metabolic 2000 panelon 08-05-2021 Anion gap [Moles/Vol] 7 mmol/L Low 9-18 [facility] Comment on above: Order Comment: Speci men Type: BLOOD SPECIMENOrdering Facility: [facility] Address: [address] [place] [address] Performed By: #### 2 4321-2 ####[facility]ORYCLIA [id number] [address] OF [facility] Calcium [Mass/Vol] 9.5 mg/dL Normal 8.5-10.2 [facility] Comment on above: Order Comment: Speci men Type: BLOOD SPECIMENOrdering Facility: [facility] Address: [address] [place] [address] Performed By: #### 2 4321-2 ####[facility]ORYCLIA [id number] [address] STATES OF [facility] Chloride [Moles/Vol] 97 mmol/L Normal 97-105 [facility] Comment on above: Order Comment: Speci men Type: BLOOD SPECIMENOrdering Facility: [facility] Address: [address] [place] [address] Performed By: #### 2 4321-2 ####[facility]ORYCLIA [id number] [address] [place] CO2 [Moles/Vol] 30 mmol/L Normal 22-30 [facility] Comment on above: Order Comment: Speci men Type: BLOOD SPECIMENOrdering Facility: [facility] Address: [address] [place], [place] [address] Performed By: #### 2 4321-2 ####[facility]ORYCLIA [id number] [address] STATES [facility] Creatinine [Mass/Vol] 0.61 mg/dL Low 0.73-1.22 [facility] Comment on above: Order Comment: Speccara feldman Type: BLOOD SPECIMENOrdering Facility: [facility] Address: [address] [place] [address] Performed By: #### 2 4321-2 ####[facility]ORYCLIA [id number] [address] ESTIMATED GLOMERULAR FILTRATION RATE 104 mL/min/1.73m??? Normal >=60 [facility] Comment on above: Order Comment: Shira feldman Type: BLOOD SPECIMENOrdering Facility: [facility] Address: [address] [place] [address] Result Comment: Luzmaria mated Glomerular Filtration Rate [...] Performed By: #### 2 4321-2 ####[facility]ORYCLIA [id number] [address] STATES [facility] Glucose [Mass/Vol] 124 mg/dL High 74-99 [facility] Comment on above: Order Comment: Shira francia Type: BLOOD SPECIMENOrdering Facility: [facility] Address: [address] [address] Result Comment: The [place] [employer] (ADA) provides guidance for cutoff [...] Standards of Medical Care in Diabetes 2016, [place] [employer]. Diabetes Care. 2016.39(Suppl 1). Performed By: #### 2 4321-2 ####[facility]ORYCLIA [id number] [address] STATES [facility] Potassium [Moles/Vol] 4.9 mmol/L Normal 3.7-5.1 [facility] Comment on above: Order Comment: Speci men Type: BLOOD SPECIMENOrdering Facility: [facility] Address: [address] [place] [address] Performed By: #### 2 4321-2 ####[facility]ORYCLIA [id number] [address] STATES [facility] Sodium [Moles/Vol] 134 mmol/L Low 136-144 [facility] Comment on above: Order Comment: Speci men Type: BLOOD SPECIMENOrdering Facility: [facility] Address: [address] [place] [address] Performed By: #### 2 4321-2 ####[facility]ORYCLIA [id number] [address] [place] [facility] Urea nitrogen [Mass/Vol] 40 mg/dL High 9-24 [facility] Comment on above: Order Comment: Speci men Type: BLOOD SPECIMENOrdering Facility: [facility] Address: [address] [address] Performed By: #### 2 4321-2 ####[facility] LABORATORYCLIA [id number] [address] [place] CBC W Auto Differential pane l (Bld)on 08-05-2021 Basophils (Bld) [#/Vol] 0.04 10*3/uL Normal <0.11 [facility] Comment on above: Order Comment: Speci men Type: BLOOD SPECIMENOrdering Facility: [facility] Address: [address] [address] Performed By: #### 5 7021-8 ####[facility]ORATORYCLIA [id number] [address] [place] [facility] [facility] Basophils/100 WBC (Bld) 0.3 % Normal [facility] Comment on above: Order Comment: Speci men Type: BLOOD SPECIMENOrdering Facility: [facility] Address: [address] [place] [address] Performed By: #### 5 7021-8 ####[facility] LABORATORYCLIA [id number] [place] Differential cell count method Nom (Bld) Auto Normal [facility] Comment on above: Order Comment: Speci men Type: BLOOD SPECIMENOrdering Facility: [facility] Address: [address] [place] [address] Performed By: #### 5 7021-8 ####[facility] LABORATORYCLIA [id number] [address] [place] Eosinophils (Bld) [#/Vol] 0.42 10*3/uL Normal <0.46 [facility] Comment on above: Order Comment: Speci men Type: BLOOD SPECIMENOrdering Facility: [facility] Address: [address] [place] [address] Performed By: #### 5 7021-8 ####[facility] LABORATORYCLIA [id number] [address] Eosinophils/100 WBC (Bld) 3.6 % Normal [facility] Comment on above: Order Comment: Speci men Type: BLOOD SPECIMENOrdering Facility: [facility] Address: [address] [place] [address] Performed By: #### 5 7021-8 ####[facility] LABORATORYCLIA [id number] [address] [place] Erythrocyte distribution width (RBC) [Ratio] 17.9 % High 11.5-15.0 [facility] Comment on above: Order Comment: Speci men Type: BLOOD SPECIMENOrdering Facility: [facility] Address: [address] [place] [address] Performed By: #### 5 7021-8 ####[facility] LABORATORYCLIA [id number] [address] Hematocrit (Bld) [Volume fraction] 30.8 % Low 39.0-51.0 [facility] Comment on above: Order Comment: Speci men Type: BLOOD SPECIMENOrdering Facility: [facility] Address: [address] [place] [address] Performed By: #### 5 7021-8 ####[facility] LABORATORYCLIA [id number] [address] Hemoglobin (Bld) [Mass/Vol] 9.6 g/dL Low 13.0-17.0 [facility] Comment on above: Order Comment: Speci men Type: BLOOD SPECIMENOrdering Facility: [facility] Address: [address] [place] [address] Performed By: #### 5 7021-8 ####[facility] LABORATORYCLIA [id number] [address] IMMATURE GRAN % 0.5 % Normal [facility] Comment on above: Order Comment: Speci men Type: BLOOD SPECIMENOrdering Facility: [facility] Address: [address] [place] [address] Performed By: #### 5 7021-8 ####[facility] LABORATORYCLIA [id number] [address] IMMATURE GRAN ABS 0.06 k/uL Normal <0.10 [facility] Comment on above: Order Comment: Speci men Type: BLOOD SPECIMENOrdering Facility: [facility] Address: [address] [place] [address] Performed By: #### 5 7021-8 ####[facility] LABORATORYCLIA [id number] [address] [place] Lymphocytes (Bld) [#/Vol] 2.17 10*3/uL Normal 1.00-4.00 [facility] Comment on above: Order Comment: Speci men Type: BLOOD SPECIMENOrdering Facility: [facility] Address: [address] [place] [address] Performed By: #### 5 7021-8 ####[facility] LABORATORYCLIA [id number] [address] Lymphocytes/100 WBC (Bld) 18.7 % Normal [facility] Comment on above: Order Comment: Speci men Type: BLOOD SPECIMENOrdering Facility: [facility] Address: [address] [place] [address] Performed By: #### 5 7021-8 ####[facility] LABORATORYCLIA [id number] [address] MCH (RBC) [Entitic mass] 28.9 pg Normal 26.0-34.0 [facility] Comment on above: Order Comment: Speci men Type: BLOOD SPECIMENOrdering Facility: [facility] Address: [address] [place] [address] Performed By: #### 5 7021-8 ####[facility] LABORATORYCLIA [id number] [address] MCHC (RBC) [Mass/Vol] 31.2 g/dL Normal 30.5-36.0 [facility] Comment on above: Order Comment: Speci men Type: BLOOD SPECIMENOrdering Facility: [facility] Address: [address] [place] [address] Performed By: #### 5 7021-8 ####[facility] LABORATORYCLIA [id number] [address] STATES [facility] MCV (RBC) [Entitic vol] 92.8 fL Normal 80.0-100.0 [facility] Comment on above: Order Comment: Speci men Type: BLOOD SPECIMENOrdering Facility: [facility] Address: [address] [place] [address] Performed By: #### 5 7021-8 ####[facility] LABORATORYCLIA [id number] [place] [address] [place] Monocytes (Bld) [#/Vol] 0.71 10*3/uL Normal <0.87 [facility] Comment on above: Order Comment: Speci men Type: BLOOD SPECIMENOrdering Facility: [facility] Address: [address] [place] [address] Performed By: #### 5 7021-8 ####[facility] LABORATORYCLIA [id number] [place] [address] [place] Monocytes/100 WBC (Bld) 6.1 % Normal [facility] Comment on above: Order Comment: Speci men Type: BLOOD SPECIMENOrdering Facility: [facility] Address: [address] [place] [address] Performed By: #### 5 7021-8 ####[facility] LABORATORYCLIA [id number] [place] [address] [place] Neutrophils (Bld) [#/Vol] 8.19 10*3/uL High 1.45-7.50 [facility] Comment on above: Order Comment: Speci men Type: BLOOD SPECIMENOrdering Facility: [facility] Address: [address] [place] [address] Performed By: #### 5 7021-8 ####[facility] LABORATORYCLIA [id number] [address] [place] Neutrophils/100 WBC (Bld) 70.8 % Normal [facility] Comment on above: Order Comment: Speci men Type: BLOOD SPECIMENOrdering Facility: [facility] Address: [address] [place] [address] Performed By: #### 5 7021-8 ####[facility]ORATORYCLIA [id number] [place] [address] [place] Nucleated RBC (Bld) [#/Vol] 10*3/uL Normal <0.01 [facility] Comment on above: Order Comment: Speci men Type: BLOOD SPECIMENOrdering Facility: [facility] Address: [address] [place] [address] Performed By: #### 5 7021-8 ####[facility] LABORATORYCLIA [id number] [address] Nucleated RBC/100 WBC (Bld) [Ratio] 0.0 /100 WBC Normal [facility] Comment on above: Order Comment: Speci men Type: BLOOD SPECIMENOrdering Facility: [facility] Address: [address] [place] [address] Performed By: #### 5 7021-8 ####[facility] LABORATORYCLIA [id number] [address] [place] Platelet mean volume (Bld) [Entitic vol] 9.6 fL Normal 9.0-12.7 [facility] Comment on above: Order Comment: Speci men Type: BLOOD SPECIMENOrdering Facility: [facility] Address: [address] [place] [address] Performed By: #### 5 7021-8 ####[facility] LABORATORYCLIA [id number] [address] [place] Platelets (Bld) [#/Vol] 339 10*3/uL Normal 150-400 [facility] Comment on above: Order Comment: Speci men Type: BLOOD SPECIMENOrdering Facility: [facility] Address: [address] [place] [address] Performed By: #### 5 7021-8 ####[facility] LABORATORYCLIA [id number] [address] [place] RBC (Bld) [#/Vol] 3.32 10*6/uL Low 4.20-6.00 [facility] Comment on above: Order Comment: Speci men Type: BLOOD SPECIMENOrdering Facility: [facility] Address: [address] [place] [address] Performed By: #### 5 7021-8 ####[facility]ORATORYCLIA [id number] [address] [place] WBC (Bld) [#/Vol] 11.59 10*3/uL High 3.70-11.00 [facility] Comment on above: Order Comment: Speci men Type: BLOOD SPECIMENOrdering Facility: [facility] Address: [address] [place] [address] Performed By: #### 5 7021-8 ####[facility] LABORATORYCLIA [id number] [address] [place] BRAIN WO IVCONon 08-06-[address] BRAIN WO IVCON Normal [facility] Magnesium SerPl-mCncon 08-05 Magnesium [Mass/Vol] 2.2 mg/dL Normal 1.7-2.3 [facility] Comment on above: Order Comment: Speci men Type: BLOOD SPECIMENOrdering Facility: [facility] Address: [address] [place] [address] Performed By: #### 1 9123-9, 2777-1 ####[facility] LABORATORYCLIA [id number] [address] OF [facility] NURSING PROGon 08-05-2021 NURSING PROG Normal [facility] NURSING PROG Normal [facility] NUTRITIONon 08-05-2021 NUTRITION Normal [facility] OPERATIVE NOon 08-05-2021 OPERATIVE NO Normal [facility] Phosphate SerPl-mCncon 08-05 Phosphate [Mass/Vol] 4.6 mg/dL Normal 2.7-4.8 [facility] Comment on above: Order Comment: Speci men Type: BLOOD SPECIMENOrdering Facility: [facility] Address: [address] [place] [address] Performed By: #### 1 9123-9, 2777-1 ####[facility] LABORATORYCLIA [id number] [address] [place] THERAPY NTon 08-05-2021 THERAPY NT Normal [facility] THERAPY NT Normal [facility] Urinalysis complete panel (U )on 08-05-2021 Bilirubin Ql (U) Negative Normal Negative [facility] Comment on above: Order Comment: Speci men Type: URINE SPECIMENOrdering Facility: [facility] Address: [address] [place] [address] Performed By: #### 2 4356-8 ####[facility] LABORATORYCLIA [id number] [address] Clarity (Unsp spec) Clear Normal Clear [facility] Comment on above: Order Comment: Speci men Type: URINE SPECIMENOrdering Facility: [facility] Address: [address] [place] [address] Performed By: #### 2 4356-8 ####[facility]ORATORYCLIA [id number] [address] Color (U) Light Yellow Normal yellow [facility] Comment on above: Order Comment: Speci men Type: URINE SPECIMENOrdering Facility: [facility] Address: [address] [place] [address] Performed By: #### 2 4356-8 ####[facility]ORATORYCLIA [id number] [address] Epithelial cells LM.HPF (Urine sed) [#/Area] Few Abnormal None Seen [facility] Comment on above: Order Comment: Speci men Type: URINE SPECIMENOrdering Facility: [facility] Address: [address] [place] [address] Performed By: #### 2 4356-8 ####[facility] LABORATORYCLIA [id number] [address] [place] Glucose Test strip (U) [Mass/Vol] Negative Normal Negative [facility] Comment on above: Order Comment: Speci men Type: URINE SPECIMENOrdering Facility: [facility] Address: [address] [place] [address] Performed By: #### 2 4356-8 ####[facility]ORATORYCLIA [id number] [address] [place] Hemoglobin Ql (U) Negative Normal Negative [facility] Comment on above: Order Comment: Speci men Type: URINE SPECIMENOrdering Facility: [facility] Address: [address] [place] [address] Performed By: #### 2 4356-8 ####[facility]ORATORYCLIA [id number] [address] STATES OF [facility] Hyaline casts (Urine sed) [#/Area] 1-3 /LPF Abnormal 0 /LPF [facility] Comment on above: Order Comment: Speci men Type: URINE SPECIMENOrdering Facility: [facility] Address: [address] [place] [address] Performed By: #### 2 4356-8 ####[facility]ORATORYCLIA [id number] [address] STATES [facility] Ketones Ql (U) Negative Normal Negative [facility] Comment on above: Order Comment: Speci men Type: URINE SPECIMENOrdering Facility: [facility] Address: [address] [place] [address] Performed By: #### 2 4356-8 ####[facility]ORATORYCLIA [id number] [address] [place] [facility] Leukocyte esterase Test strip Ql (U) Negative Normal Negative [facility] Comment on above: Order Comment: Speci men Type: URINE SPECIMENOrdering Facility: [facility] Address: [address] [place] [address] Performed By: #### 2 4356-8 ####[facility]ORATORYCLIA [id number] [address] [place] Nitrite Ql (U) Negative Normal Negative [facility] Comment on above: Order Comment: Speci men Type: URINE SPECIMENOrdering Facility: [facility] Address: [address] [place] [address] Performed By: #### 2 4356-8 ####[facility] LABORATORYCLIA [id number] [address] [place] pH (U) 6.0 [pH] Normal 5.0-8.0 [facility] Comment on above: Order Comment: Speci men Type: URINE SPECIMENOrdering Facility: [facility] Address: [address] [place] [address] Performed By: #### 2 4356-8 ####[facility]ORATORYCLIA [id number] [address] Protein (U) [Mass/Vol] Negative Normal Negative [place] Comment on above: Order Comment: Speci men Type: URINE SPECIMENOrdering Facility: [facility] Address: [address] [place] [address] Performed By: #### 2 4356-8 ####[facility]ORATORYCLIA [id number] [address] STATES [facility] RBC LM.HPF (Urine sed) [#/Area] 0-3 /HPF Normal 0-3 /HPF [facility] Comment on above: Order Comment: Speci men Type: URINE SPECIMENOrdering Facility: [facility] Address: [address] [place] [address] Performed By: #### 2 4356-8 ####[facility]ORATORYCLIA [id number] [address] Specific gravity (U) [Rel density] 1.015 Normal 1.005-1.030 [facility] Comment on above: Order Comment: Speci men Type: URINE SPECIMENOrdering Facility: [facility] Address: [address] [place] [address] Performed By: #### 2 4356-8 ####[facility]ORATORYCLIA [id number] [address] Urobilinogen Ql (U) Normal Normal Negative [facility] Comment on above: Order Comment: Speci men Type: URINE SPECIMENOrdering Facility: [facility] Address: [address] [place] [address] Performed By: #### 2 4356-8 ####[facility]ORATORYCLIA [id number] [address] [place] WBC LM.HPF (Urine sed) [#/Area] 0-5 /HPF Normal 0-5 /HPF [facility] Comment on above: Order Comment: Speci men Type: URINE SPECIMENOrdering Facility: [facility] Address: [address] [place], [place] [address] Performed By: #### 2 4356-8 ####[facility] LABORATORYCLIA [id number] [address] [place] XR ABDOMEN 1V SUPINEon 08-05 XR ABDOMEN 1V SUPINE Normal [facility] XR CHEST 1V FRONTALon 2021 XR CHEST 1V FRONTAL Normal [facility] XR CHEST 1V FRONTAL Normal [facility] XR NECK SOFT TISSUE 2V AP/LA Ton 08-05-2021 XR NECK SOFT TISSUE 2V AP/LAT Normal [facility] XR SKULL 2V AP/LATon 022 XR SKULL 2V AP/LAT Normal [facility] ALLIED HEALTHon 08-04-2021 ALLIED HEALTH Normal [facility] Bacteria Bld Culton 08-05-19 22 Bacteria identified Cx Nom (Bld) CULTURE, BLOOD: No growth 5 days Normal [facility] Comment on above: Performed By: #### 6 00-7 ####[facility] LABORATORYCLIA [id number] [address] STATES OF [facility] Bacteria identified Cx Nom (Bld) CULTURE, BLOOD: No growth 5 days Normal [facility] Comment on above: Performed By: #### 6 00-7 ####[facility]ORATORYCLIA [id number] [address] [place] CBC W Auto Differential pane l (Bld)on 08-04-2021 Basophils (Bld) [#/Vol] 0.05 10*3/uL Normal <0.11 [facility] Comment on above: Order Comment: Speci men Type: BLOOD SPECIMENOrdering Facility: [facility] Address: [address] [place] [id number] Performed By: #### 5 7021-8 ####[facility]ORATORYCLIA [id number] [address] [place] Basophils/100 WBC (Bld) 0.4 % Normal [facility] Comment on above: Order Comment: Speci men Type: BLOOD SPECIMENOrdering Facility: [facility] Address: [address] [place] [address] Performed By: #### 5 7021-8 ####[facility] LABORATORYCLIA [id number] [place] [address] [place] Differential cell count method Nom (Bld) Auto Normal [facility] Comment on above: Order Comment: Speci men Type: BLOOD SPECIMENOrdering Facility: [facility] Address: [address] [place] [address] Performed By: #### 5 7021-8 ####[facility]ORATORYCLIA [id number] [place] [address] [place] Eosinophils (Bld) [#/Vol] 0.21 10*3/uL Normal <0.46 [facility] Comment on above: Order Comment: Speci men Type: BLOOD SPECIMENOrdering Facility: [facility] Address: [address] [place] [address] Performed By: #### 5 7021-8 ####[facility]ORATORYCLIA [id number] [address] [place] Eosinophils/100 WBC (Bld) 1.7 % Normal [facility] Comment on above: Order Comment: Speci men Type: BLOOD SPECIMENOrdering Facility: [facility] Address: [address] [place] [address] Performed By: #### 5 7021-8 ####[facility] LABORATORYCLIA [id number] [place] [address] [place] Erythrocyte distribution width (RBC) [Ratio] 18.1 % High 11.5-15.0 [facility] Comment on above: Order Comment: Speci men Type: BLOOD SPECIMENOrdering Facility: [facility] Address: [address] [place] [address] Performed By: #### 5 7021-8 ####[facility]ORATORYCLIA [id number] [address] Hematocrit (Bld) [Volume fraction] 32.0 % Low 39.0-51.0 [facility] Comment on above: Order Comment: Speci men Type: BLOOD SPECIMENOrdering Facility: [facility] Address: [address] [place] [address] Performed By: #### 5 7021-8 ####[facility]ORATORYCLIA [id number] [address] [place] Hemoglobin (Bld) [Mass/Vol] 10.0 g/dL Low 13.0-17.0 [facility] Comment on above: Order Comment: Speci men Type: BLOOD SPECIMENOrdering Facility: [facility] Address: [address] [place] [address] Performed By: #### 5 7021-8 ####[facility]ORATORYCLIA [id number] [address] IMMATURE GRAN % 0.6 % Normal [facility] Comment on above: Order Comment: Speci men Type: BLOOD SPECIMENOrdering Facility: [facility] Address: [address] [place] [address] Performed By: #### 5 7021-8 ####[facility]ORATORYCLIA [id number] [address] IMMATURE GRAN ABS 0.08 k/uL Normal <0.10 [facility] Comment on above: Order Comment: Speci men Type: BLOOD SPECIMENOrdering Facility: [facility] Address: [address] [place] [address] Performed By: #### 5 7021-8 ####[facility]ORATORYCLIA [id number] [address] Lymphocytes (Bld) [#/Vol] 2.55 10*3/uL Normal 1.00-4.00 [facility] Comment on above: Order Comment: Speci men Type: BLOOD SPECIMENOrdering Facility: [facility] Address: [address] [place] [address] Performed By: #### 5 7021-8 ####[facility]ORATORYCLIA [id number] [address] Lymphocytes/100 WBC (Bld) 20.5 % Normal [facility] Comment on above: Order Comment: Speci men Type: BLOOD SPECIMENOrdering Facility: [facility] Address: [address] [place] [address] Performed By: #### 5 7021-8 ####[facility] LABORATORYCLIA [id number] [address] MCH (RBC) [Entitic mass] 28.9 pg Normal 26.0-34.0 [facility] Comment on above: Order Comment: Speci men Type: BLOOD SPECIMENOrdering Facility: [facility] Address: [address] [place] [address] Performed By: #### 5 7021-8 ####[facility] LABORATORYCLIA [id number] [address] MCHC (RBC) [Mass/Vol] 31.3 g/dL Normal 30.5-36.0 [facility] Comment on above: Order Comment: Speci men Type: BLOOD SPECIMENOrdering Facility: [facility] Address: [address] [place] [address] Performed By: #### 5 7021-8 ####[facility]ORATORYCLIA [id number] [address] MCV (RBC) [Entitic vol] 92.5 fL Normal 80.0-100.0 [facility] Comment on above: Order Comment: Speci men Type: BLOOD SPECIMENOrdering Facility: [facility] Address: [address] [place] [address] Performed By: #### 5 7021-8 ####[facility]ORATORYCLIA [id number] [address] Monocytes (Bld) [#/Vol] 0.85 10*3/uL Normal <0.87 [facility] Comment on above: Order Comment: Speci men Type: BLOOD SPECIMENOrdering Facility: [facility] Address: [address] [place] [address] Performed By: #### 5 7021-8 ####[facility] LABORATORYCLIA [id number] [address] [place] Monocytes/100 WBC (Bld) 6.8 % Normal [facility] Comment on above: Order Comment: Speci men Type: BLOOD SPECIMENOrdering Facility: [facility] Address: [address] [place] [address] Performed By: #### 5 7021-8 ####[facility]ORATORYCLIA [id number] [address] [place] Neutrophils (Bld) [#/Vol] 8.68 10*3/uL High 1.45-7.50 [facility] Comment on above: Order Comment: Speci men Type: BLOOD SPECIMENOrdering Facility: [facility] Address: [address] [place] [address] Performed By: #### 5 7021-8 ####[facility] LABORATORYCLIA [id number] [address] [place] Neutrophils/100 WBC (Bld) 70.0 % Normal [facility] Comment on above: Order Comment: Speci men Type: BLOOD SPECIMENOrdering Facility: [facility] Address: [address] [place] [address] Performed By: #### 5 7021-8 ####[facility] LABORATORYCLIA [id number] [place] [address] [place] Nucleated RBC (Bld) [#/Vol] 10*3/uL Normal <0.01 [facility] Comment on above: Order Comment: Speci men Type: BLOOD SPECIMENOrdering Facility: [facility] Address: [address] [place] [address] Performed By: #### 5 7021-8 ####[facility] LABORATORYCLIA [id number] [place] [address] [place] Nucleated RBC/100 WBC (Bld) [Ratio] 0.0 /100 WBC Normal [facility] Comment on above: Order Comment: Speci men Type: BLOOD SPECIMENOrdering Facility: [facility] Address: [address] [place] [address] Performed By: #### 5 7021-8 ####[facility] LABORATORYCLIA [id number] [place] [address] [place] Platelet mean volume (Bld) [Entitic vol] 10.0 fL Normal 9.0-12.7 [facility] Comment on above: Order Comment: Speci men Type: BLOOD SPECIMENOrdering Facility: [facility] Address: [address] [place] [address] Performed By: #### 5 7021-8 ####[facility] LABORATORYCLIA [id number] [address] [place] Platelets (Bld) [#/Vol] 393 10*3/uL Normal 150-400 [facility] Comment on above: Order Comment: Speci men Type: BLOOD SPECIMENOrdering Facility: [facility] Address: [address] [place] [address] Performed By: #### 5 7021-8 ####[facility] LABORATORYCLIA [id number] [address] [place] RBC (Bld) [#/Vol] 3.46 10*6/uL Low 4.20-6.00 [facility] Comment on above: Order Comment: Speci men Type: BLOOD SPECIMENOrdering Facility: [facility] Address: [address] [place], [place] [address] Performed By: #### 5 7021-8 ####[facility] LABORATORYCLIA [id number] [address] [place] WBC (Bld) [#/Vol] 12.42 10*3/uL High 3.70-11.00 [facility] Comment on above: Order Comment: Speci men Type: BLOOD SPECIMENOrdering Facility: [facility] Address: [address] [place], [place] [address] Performed By: #### 5 7021-8 ####[facility] LABORATORYCLIA [id number] [address] [place] CT BRAIN WO IVCONon 08-05-19 CT BRAIN WO IVCON Normal [facility] Lactate (Bld) [Moles/Vol]on 08-04-2021 Lactate [Moles/Vol] 1.4 mmol/L Normal 0.5-2.2 [facility] Comment on above: Order Comment: Speci men Type: BLOOD SPECIMENOrdering Facility: [facility] Address: [address] [place] [address] Performed By: #### 3 2693-4 ####[facility] LABORATORYCLIA [id number] [address] PROCALCITONIN (LAB)on 2021 Procalcitonin [Mass/Vol] 0.08 ng/mL Normal <0.09 [facility] Comment on above: Order Comment: Speci men Type: BLOOD SPECIMENOrdering Facility: [facility] Address: [address] [place] [address] Result Comment: For a guided interpretation of test results, please visit the Change in Procalcitonin Calculator, [email or web address]. Performed By: #### P ROCAL ####[facility] LABORATORYCLIA [id number] [address] OF [facility] Prealbumin [Mass/Vol]on 07-07 Prealbumin Nephelometry [Mass/Vol] 35 mg/dL Normal 17-36 [facility] Comment on above: Order Comment: Speci men Type: BLOOD SPECIMENOrdering Facility: [facility] Address: [address] [place] [address] Performed By: #### 1 4338-8 ####[facility] LABORATORYCLIA [id number] [address] [place] SARS-CoV-2 RNA Resp Ql MEGAN+p robeon 08-04-2021 SARS-CoV-2 (COVID-19) RNA MEGAN+probe Ql (Resp) COVID 19 RESULT: SARS-CoV-2 (Agent of COVID-19) Not Detected by RT-PCR or equivalent method. This test has been authorized by FDA under an Emergency Use Authorization (EUA). [facility] Comment on above: Performed By: #### 9 4500-6 ####[facility] LABORATORYCLIA [id number] [address] TYPE AND SCREENon 08-04-[address] [facility] Comment on above: Order Comment: Speci men Type: BLOOD SPECIMENOrdering Facility: [facility] Address: [address] [place] [address] Performed By: #### T SCR ####[facility] BLOOD BANKCLIA [id number] [address] HISTORICAL AB SCR STATUS Negative [facility] Comment on above: Order Comment: Speci men Type: BLOOD SPECIMENOrdering Facility: [facility] Address: [address] [place] [address] Performed By: #### T SCR ####[facility] BLOOD BANKCLIA [id number] [address] Rh Nom (Bld) Positive [facility] Comment on above: Order Comment: Speci men Type: BLOOD SPECIMENOrdering Facility: [facility] Address: [address] [place] [address] Performed By: #### T SCR ####[facility] BLOOD BANKCLIA [id number] [address] TYPE AND SCREEN EXPIRATION 08/07/2021 23:59 [facility] Comment on above: Order Comment: Speci men Type: BLOOD SPECIMENOrdering Facility: [facility] Address: [facility] [place] [address] Performed By: #### T SCR ####[facility] BLOOD BANKCLIA [id number] [address] [place] aPTT PPPon 08-04-2021 aPTT Coag (PPP) [Time] 51.8 s High 23.0-32.4 [place] Comment on above: Order Comment: Speci men Type: BLOOD SPECIMENOrdering Facility: [facility] Address: [address] [place] [address] Performed By: #### 1 4979-9 ####[facility] LABORATORYCLIA [id number] [place] [address] [place] Basic metabolic 2000 panelon 08-03-2021 Anion gap [Moles/Vol] 9 mmol/L Normal 9-18 [facility] Comment on above: Order Comment: Speci men Type: BLOOD SPECIMENOrdering Facility: [facility] Address: [address] [place] [address] Performed By: #### 2 4321-2, , 2776-05 ####[facility] LABORATORYCLIA [id number] [place] [address] [place] Calcium [Mass/Vol] 9.3 mg/dL Normal 8.5-10.2 [facility] Comment on above: Order Comment: Speci men Type: BLOOD SPECIMENOrdering Facility: [facility] Address: [address] [place] [address] Performed By: #### 2 4321-2, , 2776-05 ####[facility] LABORATORYCLIA [id number] [place] [address] [place] Chloride [Moles/Vol] 97 mmol/L Normal 97-105 [facility] Comment on above: Order Comment: Speci men Type: BLOOD SPECIMENOrdering Facility: [facility] Address: [address] [place] [address] Performed By: #### 2 4321-2, , 2776-05 ####[facility] LABORATORYCLIA [id number] [place] [address] [place] CO2 [Moles/Vol] 27 mmol/L Normal 22-30 [facility] Comment on above: Order Comment: Speci men Type: BLOOD SPECIMENOrdering Facility: [facility] Address: [address] [place] [address] Performed By: #### 2 4321-2, , 2776-05 ####[facility]IA [id number] [place] [address] [place] Creatinine [Mass/Vol] 0.63 mg/dL Low 0.73-1.22 [facility] Comment on above: Order Comment: Speci men Type: BLOOD SPECIMENOrdering Facility: [facility] Address: [address] [place] [address] Performed By: #### 2 4321-2, , 2776-05 ####[facility]NAPOLISIA [id number] [address] [place] ESTIMATED GLOMERULAR FILTRATION RATE 103 mL/min/1.73m??? Normal >=60 [facility] Comment on above: Order Comment: Speci men Type: BLOOD SPECIMENOrdering Facility: [facility] Address: [address] [place] [address] Result Comment: Luzmaria mated Glomerular Filtration Rate [...] #### 2 4321-2, , 2776-05 ####[facility] LABORATORYIA [id number] [place] [address] [place] Glucose [Mass/Vol] 136 mg/dL High 74-99 [facility] Comment on above: Order Comment: Speci men Type: BLOOD SPECIMENOrdering Facility: [facility] Address: [address] [place] [address] Result Comment: The [place] [employer] (ADA) provides guidance for cutoff [...] Standards of Medical Care in Diabetes 2016, [place] [employer]. Diabetes Care. 2016.39(Suppl 1). Performed By: #### 2 4321-2, , 2776-05 ####[facility] LABORATORYCLIA [id number] [place] [address] [place] Potassium [Moles/Vol] 4.1 mmol/L Normal 3.7-5.1 [facility] Comment on above: Order Comment: Shira feldman Type: BLOOD SPECIMENOrdering Facility: [facility] Address: [address] [place] [address] Performed By: #### 2 432-2, , 2776-05 ####[facility] HOSPITALCLIA [id number] [place] [address] [place] Sodium [Moles/Vol] 133 mmol/L Low 136-144 [facility] Comment on above: Order Comment: Shira feldman Type: BLOOD SPECIMENOrdering Facility: [facility] Address: [address] [place] [address] Performed By: #### 2 4321-2, , 2776-05 ####[facility] LABORATORYCLIA [id number] [place] [address] [place] Urea nitrogen [Mass/Vol] 40 mg/dL High 9-24 [facility] Comment on above: Order Comment: Shira feldman Type: BLOOD SPECIMENOrdering Facility: [facility] Address: [address] [place] [address] Performed By: #### 2 4321-2, , 2776-05 ####[facility] LABORATORYCLIA [id number] [address] [place] CASE MANAGEMon 08-03-2021 CASE MANAGEM Normal [facility] CBC W Auto Differential pane l (Bld)on 08-03-2021 Basophils (Bld) [#/Vol] 0.06 10*3/uL Normal <0.11 [facility] Comment on above: Order Comment: Speci men Type: BLOOD SPECIMENOrdering Facility: [facility] Address: [address] [place] [address] Performed By: #### 5 7021-8 ####[facility] LABORATORYCLIA [id number] [address] STATES [facility] Basophils/100 WBC (Bld) 0.5 % Normal [facility] Comment on above: Order Comment: Speci men Type: BLOOD SPECIMENOrdering Facility: [facility] Address: [address] [place] [address] Performed By: #### 5 7021-8 ####[facility] LABORATORYCLIA [id number] [address] Differential cell count method Nom (Bld) Auto Normal [facility] Comment on above: Order Comment: Speci men Type: BLOOD SPECIMENOrdering Facility: [facility] Address: [address] [place] [address] Performed By: #### 5 7021-8 ####[facility] LABORATORYCLIA [id number] [place] [address] [place] Eosinophils (Bld) [#/Vol] 0.23 10*3/uL Normal <0.46 [facility] Comment on above: Order Comment: Speci men Type: BLOOD SPECIMENOrdering Facility: [facility] Address: [address] [place] [address] Performed By: #### 5 7021-8 ####[facility] LABORATORYCLIA [id number] [address] [place] Eosinophils/100 WBC (Bld) 1.8 % Normal [facility] Comment on above: Order Comment: Speci men Type: BLOOD SPECIMENOrdering Facility: [facility] Address: [address] [place] [address] Performed By: #### 5 7021-8 ####[facility] LABORATORYCLIA [id number] [address] Erythrocyte distribution width (RBC) [Ratio] 17.6 % High 11.5-15.0 [facility] Comment on above: Order Comment: Speci men Type: BLOOD SPECIMENOrdering Facility: [facility] Address: [address] [place] [address] Performed By: #### 5 7021-8 ####[facility] LABORATORYCLIA [id number] [address] Hematocrit (Bld) [Volume fraction] 30.7 % Low 39.0-51.0 [facility] Comment on above: Order Comment: Speci men Type: BLOOD SPECIMENOrdering Facility: [facility] Address: [address] [place] [address] Performed By: #### 5 7021-8 ####[facility] LABORATORYCLIA [id number] [address] Hemoglobin (Bld) [Mass/Vol] 9.3 g/dL Low 13.0-17.0 [facility] Comment on above: Order Comment: Speci men Type: BLOOD SPECIMENOrdering Facility: [facility] Address: [address] [place] [address] Performed By: #### 5 7021-8 ####[facility] LABORATORYCLIA [id number] [address] IMMATURE GRAN % 0.6 % Normal [facility] Comment on above: Order Comment: Speci men Type: BLOOD SPECIMENOrdering Facility: [facility] Address: [address] [place] [address] Performed By: #### 5 7021-8 ####[facility] LABORATORYCLIA [id number] [address] IMMATURE GRAN ABS 0.08 k/uL Normal <0.10 [facility] Comment on above: Order Comment: Speci men Type: BLOOD SPECIMENOrdering Facility: [facility] Address: [address] [place] [address] Performed By: #### 5 7021-8 ####[facility] LABORATORYCLIA [id number] [address] Lymphocytes (Bld) [#/Vol] 2.45 10*3/uL Normal 1.00-4.00 [facility] Comment on above: Order Comment: Speci men Type: BLOOD SPECIMENOrdering Facility: [facility] Address: [address] [place] [address] Performed By: #### 5 7021-8 ####[facility] LABORATORYCLIA [id number] [address] Lymphocytes/100 WBC (Bld) 19.7 % Normal [facility] Comment on above: Order Comment: Speci men Type: BLOOD SPECIMENOrdering Facility: [facility] Address: [address] [place] [address] Performed By: #### 5 7021-8 ####[facility] LABORATORYCLIA [id number] [address] STATES [facility] MCH (RBC) [Entitic mass] 28.2 pg Normal 26.0-34.0 [facility] Comment on above: Order Comment: Speci men Type: BLOOD SPECIMENOrdering Facility: [facility] Address: [address] [place] [address] Performed By: #### 5 7021-8 ####[facility] LABORATORYCLIA [id number] [address] [place] MCHC (RBC) [Mass/Vol] 30.3 g/dL Low 30.5-36.0 [facility] Comment on above: Order Comment: Speci men Type: BLOOD SPECIMENOrdering Facility: [facility] Address: [address] [place] [address] Performed By: #### 5 7021-8 ####[facility] LABORATORYCLIA [id number] [place] [address] [place] MCV (RBC) [Entitic vol] 93.0 fL Normal 80.0-100.0 [facility] Comment on above: Order Comment: Speci men Type: BLOOD SPECIMENOrdering Facility: [facility] Address: [address] [place] [address] Performed By: #### 5 7021-8 ####[facility] LABORATORYCLIA [id number] [address] [place] Monocytes (Bld) [#/Vol] 0.72 10*3/uL Normal <0.87 [facility] Comment on above: Order Comment: Speci men Type: BLOOD SPECIMENOrdering Facility: [facility] Address: [address] [place] [address] Performed By: #### 5 7021-8 ####[facility] LABORATORYCLIA [id number] [address] Monocytes/100 WBC (Bld) 5.8 % Normal [facility] Comment on above: Order Comment: Speci men Type: BLOOD SPECIMENOrdering Facility: [facility] Address: [address] [place] [address] Performed By: #### 5 7021-8 ####[facility] LABORATORYCLIA [id number] [address] [place] Neutrophils (Bld) [#/Vol] 8.92 10*3/uL High 1.45-7.50 [facility] Comment on above: Order Comment: Speci men Type: BLOOD SPECIMENOrdering Facility: [facility] Address: [address] [place] [address] Performed By: #### 5 7021-8 ####[facility] LABORATORYCLIA [id number] [address] [place] Neutrophils/100 WBC (Bld) 71.6 % Normal [facility] Comment on above: Order Comment: Speci men Type: BLOOD SPECIMENOrdering Facility: [facility] Address: [address] [place] [address] Performed By: #### 5 7021-8 ####[facility] LABORATORYCLIA [id number] [address] Nucleated RBC (Bld) [#/Vol] 10*3/uL Normal <0.01 [facility] Comment on above: Order Comment: Speci men Type: BLOOD SPECIMENOrdering Facility: [facility] Address: [address] [place] [address] Performed By: #### 5 7021-8 ####[facility] LABORATORYCLIA [id number] [address] OF [facility] Nucleated RBC/100 WBC (Bld) [Ratio] 0.0 /100 WBC Normal [facility] Comment on above: Order Comment: Speci men Type: BLOOD SPECIMENOrdering Facility: [facility] Address: [address] [place] [address] Performed By: #### 5 7021-8 ####[facility] LABORATORYCLIA [id number] [address] OF [facility] Platelet mean volume (Bld) [Entitic vol] 10.2 fL Normal 9.0-12.7 [facility] Comment on above: Order Comment: Speci men Type: BLOOD SPECIMENOrdering Facility: [facility] Address: [address] [place] [address] Performed By: #### 5 7021-8 ####[facility] LABORATORYCLIA [id number] [address] [place] Platelets (Bld) [#/Vol] 352 10*3/uL Normal 150-400 [facility] Comment on above: Order Comment: Speci men Type: BLOOD SPECIMENOrdering Facility: [facility] Address: [address] [place] [address] Performed By: #### 5 7021-8 ####[facility] LABORATORYCLIA [id number] [address] [place] RBC (Bld) [#/Vol] 3.30 10*6/uL Low 4.20-6.00 [facility] Comment on above: Order Comment: Speci men Type: BLOOD SPECIMENOrdering Facility: [facility] Address: [address] [place] [address] Performed By: #### 5 7021-8 ####[facility] LABORATORYCLIA [id number] [address] [place] WBC (Bld) [#/Vol] 12.46 10*3/uL High 3.70-11.00 [facility] Comment on above: Order Comment: Speci men Type: BLOOD SPECIMENOrdering Facility: [facility] Address: [address] [place] [address] Performed By: #### 5 7021-8 ####[facility] LABORATORYCLIA [id number] [address] [place] CONSULT PROGon 08-03-2021 CONSULT PROG Normal [facility] Magnesium SerPl-ncon 08-03 Magnesium [Mass/Vol] 2.2 mg/dL Normal 1.7-2.3 [facility] Comment on above: Order Comment: Speci men Type: BLOOD SPECIMENOrdering Facility: [facility] Address: [address] [place] [address] Performed By: #### 2 4321-2, 73091-7, 2777-1 ####[facility] LABORATORYCLIA [id number] [address] [place] NURSING PROGon 08-03-2021 NURSING PROG Normal [facility] Phosphate SerPl-mCncon 08-03 Phosphate [Mass/Vol] 4.2 mg/dL Normal 2.7-4.8 [facility] Comment on above: Order Comment: Speci men Type: BLOOD SPECIMENOrdering Facility: [facility] Address: [address] [place] [address] Performed By: #### 2 4321-2, 28656-2, 2777-1 ####[facility]ORATORYCLIA [id number] [place] [address] [place] aPTT PPPon 08-03-2021 aPTT Coag (PPP) [Time] 50.0 s High 23.0-32.4 [place] Comment on above: Order Comment: Speci men Type: BLOOD SPECIMENOrdering Facility: [facility] Address: [address] [place] [address] Performed By: #### 1 4979-9 ####[facility] LABORATORYCLIA [id number] [address] [place] CBC W Auto Differential pane l (Bld)on 08-02-2021 Basophils (Bld) [#/Vol] 10*3/uL Normal <0.11 [facility] Comment on above: Order Comment: Speci men Type: BLOOD SPECIMENOrdering Facility: [facility] Address: [address] [place] [address] Performed By: #### 5 7021-8 ####[facility] LABORATORYCLIA [id number] [address] [place] Basophils/100 WBC (Bld) 0.2 % Normal [facility] Comment on above: Order Comment: Speci men Type: BLOOD SPECIMENOrdering Facility: [facility] Address: [address] [place] [address] Performed By: #### 5 7021-8 ####[facility] LABORATORYCLIA [id number] [address] Differential cell count method Nom (Bld) Auto Normal [facility] Comment on above: Order Comment: Speci men Type: BLOOD SPECIMENOrdering Facility: [facility] Address: [address] [place] [address] Performed By: #### 5 7021-8 ####[facility] LABORATORYCLIA [id number] [place] [address] [place] Eosinophils (Bld) [#/Vol] 10*3/uL Normal <0.46 [facility] Comment on above: Order Comment: Speci men Type: BLOOD SPECIMENOrdering Facility: [facility] Address: [address] [place] [address] Performed By: #### 5 7021-8 ####[facility] LABORATORYCLIA [id number] [address] Eosinophils/100 WBC (Bld) 0.0 % Normal [facility] Comment on above: Order Comment: Speci men Type: BLOOD SPECIMENOrdering Facility: [facility] Address: [address] [place] [address] Performed By: #### 5 7021-8 ####[facility] LABORATORYCLIA [id number] [address] Erythrocyte distribution width (RBC) [Ratio] 17.3 % High 11.5-15.0 [facility] Comment on above: Order Comment: Speci men Type: BLOOD SPECIMENOrdering Facility: [facility] Address: [address] [place] [address] Performed By: #### 5 7021-8 ####[facility] LABORATORYCLIA [id number] [address] Hematocrit (Bld) [Volume fraction] 30.8 % Low 39.0-51.0 [facility] Comment on above: Order Comment: Speci men Type: BLOOD SPECIMENOrdering Facility: [facility] Address: [address] [place] [address] Performed By: #### 5 7021-8 ####[facility] LABORATORYCLIA [id number] [address] [place] [facility] Hemoglobin (Bld) [Mass/Vol] 9.7 g/dL Low 13.0-17.0 [facility] Comment on above: Order Comment: Speci men Type: BLOOD SPECIMENOrdering Facility: [facility] Address: [address] [place] [address] Performed By: #### 5 7021-8 ####[facility] LABORATORYCLIA [id number] [address] [place] IMMATURE GRAN % 0.5 % Normal [facility] Comment on above: Order Comment: Speci men Type: BLOOD SPECIMENOrdering Facility: [facility] Address: [address] [place] [address] Performed By: #### 5 7021-8 ####[facility] LABORATORYCLIA [id number] [address] [place] IMMATURE GRAN ABS 0.07 k/uL Normal <0.10 [facility] Comment on above: Order Comment: Speci men Type: BLOOD SPECIMENOrdering Facility: [facility] Address: [address] [place] [address] Performed By: #### 5 7021-8 ####[facility] LABORATORYCLIA [id number] [address] Lymphocytes (Bld) [#/Vol] 1.60 10*3/uL Normal 1.00-4.00 [facility] Comment on above: Order Comment: Speci men Type: BLOOD SPECIMENOrdering Facility: [facility] [facility] Address: [address] [place] [address] Performed By: #### 5 7021-8 ####[facility] LABORATORYCLIA [id number] [address] Lymphocytes/100 WBC (Bld) 12.1 % Normal [facility] Comment on above: Order Comment: Speci men Type: BLOOD SPECIMENOrdering Facility: [facility] Address: [address] [place] [address] Performed By: #### 5 7021-8 ####[facility] LABORATORYCLIA [id number] [address] [place] [facility] MCH (RBC) [Entitic mass] 28.6 pg Normal 26.0-34.0 [facility] Comment on above: Order Comment: Speci men Type: BLOOD SPECIMENOrdering Facility: [facility] Address: [address] [place] [address] Performed By: #### 5 7021-8 ####[facility] LABORATORYCLIA [id number] [address] MCHC (RBC) [Mass/Vol] 31.5 g/dL Normal 30.5-36.0 [facility] Comment on above: Order Comment: Speci men Type: BLOOD SPECIMENOrdering Facility: [facility] Address: [address] [place] [address] Performed By: #### 5 7021-8 ####[facility] LABORATORYCLIA [id number] [address] OF [facility] MCV (RBC) [Entitic vol] 90.9 fL Normal 80.0-100.0 [facility] Comment on above: Order Comment: Speci men Type: BLOOD SPECIMENOrdering Facility: [facility] Address: [address] [place] [address] Performed By: #### 5 7021-8 ####[facility] LABORATORYCLIA [id number] [address] [place] [facility] Monocytes (Bld) [#/Vol] 0.39 10*3/uL Normal <0.87 [facility] Comment on above: Order Comment: Speci men Type: BLOOD SPECIMENOrdering Facility: [facility] Address: [address] [place] [address] Performed By: #### 5 7021-8 ####[facility] LABORATORYCLIA [id number] [address] Monocytes/100 WBC (Bld) 3.0 % Normal [facility] Comment on above: Order Comment: Speci men Type: BLOOD SPECIMENOrdering Facility: [facility] Address: [address] [place] [address] Performed By: #### 5 7021-8 ####[facility] LABORATORYCLIA [id number] [address] [place] Neutrophils (Bld) [#/Vol] 11.09 10*3/uL High 1.45-7.50 [facility] Comment on above: Order Comment: Speci men Type: BLOOD SPECIMENOrdering Facility: [facility] Address: [address] [place] [address] Performed By: #### 5 7021-8 ####[facility]ORYCLIA [id number] [address] Neutrophils/100 WBC (Bld) 84.2 % Normal [facility] Comment on above: Order Comment: Speci men Type: BLOOD SPECIMENOrdering Facility: [facility] Address: [address] [place] [address] Performed By: #### 5 7021-8 ####[facility]ORATORYCLIA [id number] [address] [place] Nucleated RBC (Bld) [#/Vol] 10*3/uL Normal <0.01 [facility] Comment on above: Order Comment: Speci men Type: BLOOD SPECIMENOrdering Facility: [facility] Address: [address] [place] [address] Performed By: #### 5 7021-8 ####[facility] LABORATORYCLIA [id number] [address] Nucleated RBC/100 WBC (Bld) [Ratio] 0.0 /100 WBC Normal [facility] Comment on above: Order Comment: Speci men Type: BLOOD SPECIMENOrdering Facility: [facility] Address: [address] [place] [address] Performed By: #### 5 7021-8 ####[facility] LABORATORYCLIA [id number] [address] [place] Platelet mean volume (Bld) [Entitic vol] 10.0 fL Normal 9.0-12.7 [facility] Comment on above: Order Comment: Speci men Type: BLOOD SPECIMENOrdering Facility: [facility] Address: [address] [place] [address] Performed By: #### 5 7021-8 ####[facility]ORYCLIA [id number] [address] [place] Platelets (Bld) [#/Vol] 358 10*3/uL Normal 150-400 [facility] Comment on above: Order Comment: Speci men Type: BLOOD SPECIMENOrdering Facility: [facility] Address: [address] [place] [address] Performed By: #### 5 7021-8 ####[facility] LABORATORYCLIA [id number] [address] STATES OF [facility] RBC (Bld) [#/Vol] 3.39 10*6/uL Low 4.20-6.00 [facility] Comment on above: Order Comment: Speci men Type: BLOOD SPECIMENOrdering Facility: [facility] Address: [address] [place] [address] Performed By: #### 5 7021-8 ####[facility] LABORATORYCLIA [id number] [address] WBC (Bld) [#/Vol] 13.17 10*3/uL High 3.70-11.00 [facility] Comment on above: Order Comment: Speci men Type: BLOOD SPECIMENOrdering Facility: [facility] Address: [address] [place] [address] Performed By: #### 5 7021-8 ####[facility] LABORATORYCLIA [id number] [address] NURSING PROGon 08-02-2021 NURSING PROG Normal [facility] THERAPY NTon 08-02-2021 THERAPY NT Normal [facility] aPTT PPPon 08-02-2021 aPTT Coag (PPP) [Time] 54.9 s High 23.0-32.4 [place] Comment on above: Order Comment: Speci men Type: BLOOD SPECIMENOrdering Facility: [facility] Address: [address] [place] [address] Performed By: #### 1 4979-9 ####[facility] LABORATORYCLIA [id number] [address] [place] ALLIED HEALTHon 08-01-2021 ALLIED HEALTH Normal [facility] ALLIED HEALTH Normal [facility] Basic metabolic 2000 panelon 08-01-2021 Anion gap [Moles/Vol] 12 mmol/L Normal 9-18 [facility] Comment on above: Order Comment: Speci men Type: BLOOD SPECIMENOrdering Facility: [facility] Address: [address] [place] [address] Performed By: #### 2 4321-2, 95331-9, 79888-2, 2777-1 ####[facility] LABORATORYCLIA [id number] [place] [address] [place] Calcium [Mass/Vol] 9.1 mg/dL Normal 8.5-10.2 [facility] Comment on above: Order Comment: Speci men Type: BLOOD SPECIMENOrdering Facility: [facility] Address: [address] [place] [address] Performed By: #### 2 4321-2, 39209-8, 31914-2, 2777-1 ####[facility] LABORATORYCLIA [id number] [place] [address] [place] Chloride [Moles/Vol] 96 mmol/L Low 97-105 [facility] Comment on above: Order Comment: Speci men Type: BLOOD SPECIMENOrdering Facility: [facility] Address: [address] [place] [address] Performed By: #### 2 4321-2, 97819-9, 29537-3, 2777-1 ####[facility] LABORATORYCLIA [id number] [place] [address] [place] CO2 [Moles/Vol] 27 mmol/L Normal 22-30 [facility] Comment on above: Order Comment: Speci men Type: BLOOD SPECIMENOrdering Facility: [facility] Address: [address] [place] [address] Performed By: #### 2 4321-2, 84888-8, 23678-0, 2777-1 ####[facility] LABORATORYCLIA [id number] [place] [address] [place] Creatinine [Mass/Vol] 0.64 mg/dL Low 0.73-1.22 [facility] Comment on above: Order Comment: Shira feldman Type: BLOOD SPECIMENOrdering Facility: [facility] Address: [address] [address] [place] [id number] Performed By: #### 2 4321-2, 51946-6, 72077-1, 2777-1 ####[facility] LABORATORYCLIA [id number] [place] [id number] [place] ESTIMATED GLOMERULAR FILTRATION RATE 102 mL/min/1.73m??? Normal >=60 [facility] Comment on above: Order Comment: Shira feldman Type: BLOOD SPECIMENOrdering Facility: [facility] Address: [address] [place] [id number] Result Comment: Luzmaria mated Glomerular Filtration Rate [...] actual GFR. Performed By: #### 2 4321-2, 83634-3, 17210-5, 2777-1 ####[facility] LABORATORYCLIA [id number] [place] [address] [place] Glucose [Mass/Vol] 122 mg/dL High 74-99 [facility] Comment on above: Order Comment: Shira francia Type: BLOOD SPECIMENOrdering Facility: [facility] Address: [address] [place] [address] Result Comment: The [place] [employer] (ADA) provides guidance for cutoff [...] Standards of Medical Care in Diabetes 2016, [place] [employer]. Diabetes Care. 2016.39(Suppl 1). Performed By: #### 2 4321-2, 58264-9, 13182-1, 2777-1 ####[facility] LABORATORYCLIA [id number] [place] [address] [place] Potassium [Moles/Vol] 4.2 mmol/L Normal 3.7-5.1 [facility] Comment on above: Order Comment: Shira feldman Type: BLOOD SPECIMENOrdering Facility: [facility] Address: [address] [place] [address] Performed By: #### 2 4321-2, 20318-9, 48455-7, 2777-1 ####[facility] LABORATORYCLIA [id number] [address] [place] Sodium [Moles/Vol] 135 mmol/L Low 136-144 [facility] Comment on above: Order Comment: Shira feldman Type: BLOOD SPECIMENOrdering Facility: [facility] Address: [address] [place] [address] Performed By: #### 2 4321-2, 96584-5, 17265-5, 2777-1 ####[facility] LABORATORYCLIA [id number] [address] [place] Urea nitrogen [Mass/Vol] 36 mg/dL High 9-24 [facility] Comment on above: Order Comment: Shira feldman Type: BLOOD SPECIMENOrdering Facility: [facility] Address: [address] [place] [address] Performed By: #### 2 4321-2, 12553-4, 81368-5, 2777-1 ####[facility] LABORATORYCLIA [id number] [place] [id number] [place] CASE MANAGEMon 08-01-2021 CASE MANAGEM Normal [facility] CBC W Auto Differential pane l (Bld)on 08-01-2021 Basophils (Bld) [#/Vol] 0.04 10*3/uL Normal <0.11 [facility] Comment on above: Order Comment: Speci men Type: BLOOD SPECIMENOrdering Facility: [facility] Address: [address] [place] [address] Performed By: #### 5 7021-8 ####[facility] LABORATORYCLIA [id number] [address] [place] Basophils/100 WBC (Bld) 0.3 % Normal [facility] Comment on above: Order Comment: Speci men Type: BLOOD SPECIMENOrdering Facility: [facility] Address: [address] [place] [address] Performed By: #### 5 7021-8 ####[facility] LABORATORYCLIA [id number] [address] Differential cell count method Nom (Bld) Auto Normal [facility] Comment on above: Order Comment: Speci men Type: BLOOD SPECIMENOrdering Facility: [facility] Address: [address] [place] [address] Performed By: #### 5 7021-8 ####[facility] LABORATORYCLIA [id number] [address] [place] Eosinophils (Bld) [#/Vol] 0.37 10*3/uL Normal <0.46 [facility] Comment on above: Order Comment: Speci men Type: BLOOD SPECIMENOrdering Facility: [facility] Address: [address] [place] [address] Performed By: #### 5 7021-8 ####[facility]ATORYCLIA [id number] [address] [place] Eosinophils/100 WBC (Bld) 3.1 % Normal [facility] Comment on above: Order Comment: Speci men Type: BLOOD SPECIMENOrdering Facility: [facility] Address: [address] [place] [address] Performed By: #### 5 7021-8 ####[facility]ATORYCLIA [id number] [address] [place] Erythrocyte distribution width (RBC) [Ratio] 17.5 % High 11.5-15.0 [facility] Comment on above: Order Comment: Speci men Type: BLOOD SPECIMENOrdering Facility: [facility] Address: [address] [place] [address] Performed By: #### 5 7021-8 ####[facility] LABORATORYCLIA [id number] [address] OF [facility] Hematocrit (Bld) [Volume fraction] 30.1 % Low 39.0-51.0 [facility] Comment on above: Order Comment: Speci men Type: BLOOD SPECIMENOrdering Facility: [facility] Address: [address] [place] [address] Performed By: #### 5 7021-8 ####[facility] LABORATORYCLIA [id number] [address] Hemoglobin (Bld) [Mass/Vol] 9.1 g/dL Low 13.0-17.0 [facility] Comment on above: Order Comment: Speci men Type: BLOOD SPECIMENOrdering Facility: [facility] Address: [address] [place] [address] Performed By: #### 5 7021-8 ####[facility] LABORATORYCLIA [id number] [address] IMMATURE GRAN % 0.6 % Normal [facility] Comment on above: Order Comment: Speci men Type: BLOOD SPECIMENOrdering Facility: [facility] Address: [address] [place] [address] Performed By: #### 5 7021-8 ####[facility] LABORATORYCLIA [id number] [address] IMMATURE GRAN ABS 0.07 k/uL Normal <0.10 [facility] Comment on above: Order Comment: Speci men Type: BLOOD SPECIMENOrdering Facility: [facility] Address: [address] [place] [address] Performed By: #### 5 7021-8 ####[facility] LABORATORYCLIA [id number] [address] Lymphocytes (Bld) [#/Vol] 2.05 10*3/uL Normal 1.00-4.00 [facility] Comment on above: Order Comment: Speci men Type: BLOOD SPECIMENOrdering Facility: [facility] Address: [address] [place] [address] Performed By: #### 5 7021-8 ####[facility] LABORATORYCLIA [id number] [address] Lymphocytes/100 WBC (Bld) 17.1 % Normal [facility] Comment on above: Order Comment: Speci men Type: BLOOD SPECIMENOrdering Facility: [facility] Address: [address] [place] [address] Performed By: #### 5 7021-8 ####[facility] LABORATORYCLIA [id number] [address] STATES [facility] MCH (RBC) [Entitic mass] 27.7 pg Normal 26.0-34.0 [facility] Comment on above: Order Comment: Speci men Type: BLOOD SPECIMENOrdering Facility: [facility] Address: [address] [place] [address] Performed By: #### 5 7021-8 ####[facility] LABORATORYCLIA [id number] [address] STATES OF [facility] MCHC (RBC) [Mass/Vol] 30.2 g/dL Low 30.5-36.0 [facility] Comment on above: Order Comment: Speci men Type: BLOOD SPECIMENOrdering Facility: [facility] Address: [address] [place] [address] Performed By: #### 5 7021-8 ####[facility] LABORATORYCLIA [id number] [address] MCV (RBC) [Entitic vol] 91.5 fL Normal 80.0-100.0 [facility] Comment on above: Order Comment: Speci men Type: BLOOD SPECIMENOrdering Facility: [facility] Address: [address] [place] [address] Performed By: #### 5 7021-8 ####[facility]ORYCLIA [id number] [address] [place] Monocytes (Bld) [#/Vol] 0.53 10*3/uL Normal <0.87 [facility] Comment on above: Order Comment: Speci men Type: BLOOD SPECIMENOrdering Facility: [facility] Address: [address] [place] [address] Performed By: #### 5 7021-8 ####[facility]ORYCLIA [id number] [address] [place] Monocytes/100 WBC (Bld) 4.4 % Normal [facility] Comment on above: Order Comment: Speci men Type: BLOOD SPECIMENOrdering Facility: [facility] Address: [address] [place] [address] Performed By: #### 5 7021-8 ####[facility] LABORATORYCLIA [id number] [address] [place] Neutrophils (Bld) [#/Vol] 8.91 10*3/uL High 1.45-7.50 [facility] Comment on above: Order Comment: Speci men Type: BLOOD SPECIMENOrdering Facility: [facility] Address: [address] [place] [address] Performed By: #### 5 7021-8 ####[facility]ORYCLIA [id number] [address] [place] Neutrophils/100 WBC (Bld) 74.5 % Normal [facility] Comment on above: Order Comment: Speci men Type: BLOOD SPECIMENOrdering Facility: [facility] Address: [address] [place] [address] Performed By: #### 5 7021-8 ####[facility]ORYCLIA [id number] [place] [address] [place] Nucleated RBC (Bld) [#/Vol] 10*3/uL Normal <0.01 [facility] Comment on above: Order Comment: Speci men Type: BLOOD SPECIMENOrdering Facility: [facility] Address: [address] [place] [address] Performed By: #### 5 7021-8 ####[facility] LABORATORYCLIA [id number] [address] [place] Nucleated RBC/100 WBC (Bld) [Ratio] 0.0 /100 WBC Normal [facility] Comment on above: Order Comment: Speci men Type: BLOOD SPECIMENOrdering Facility: [facility] Address: [address] [place] [address] Performed By: #### 5 7021-8 ####[facility] LABORATORYCLIA [id number] [place] [address] [place] Platelet mean volume (Bld) [Entitic vol] 10.4 fL Normal 9.0-12.7 [facility] Comment on above: Order Comment: Speci men Type: BLOOD SPECIMENOrdering Facility: [facility] Address: [address] [place] [address] Performed By: #### 5 7021-8 ####[facility] LABORATORYCLIA [id number] [place] [address] [place] Platelets (Bld) [#/Vol] 319 10*3/uL Normal 150-400 [facility] Comment on above: Order Comment: Speci men Type: BLOOD SPECIMENOrdering Facility: [facility] Address: [address] Performed By: #### 5 7021-8 ####[facility] LABORATORYCLIA [id number] [place] [address] [place] RBC (Bld) [#/Vol] 3.29 10*6/uL Low 4.20-6.00 [facility] Comment on above: Order Comment: Speci men Type: BLOOD SPECIMENOrdering Facility: [facility] Address: [address] [place] [address] Performed By: #### 5 7021-8 ####[facility] LABORATORYCLIA [id number] [address] [place] WBC (Bld) [#/Vol] 11.97 10*3/uL High 3.70-11.00 [facility] Comment on above: Order Comment: Speci men Type: BLOOD SPECIMENOrdering Facility: [facility] Address: [address] [place] [address] Performed By: #### 5 7021-8 ####[facility] LABORATORYCLIA [id number] [address] [place] CT BRAIN WO IVCONon 08-02-19 CT BRAIN WO IVCON Normal [facility] Magnesium SerPl-mCncon 08-01 Magnesium [Mass/Vol] 2.4 mg/dL High 1.7-2.3 [facility] Comment on above: Order Comment: Speci men Type: BLOOD SPECIMENOrdering Facility: [facility] Address: [address] [place] [address] Performed By: #### 2 4321-2, 07012-8, 24768-5, 2777-1 ####[facility] LABORATORYCLIA [id number] [address] OF [facility] NURSING PROGon 08-01-2021 NURSING PROG Normal [facility] NUTRITIONon 08-01-2021 NUTRITION Normal [facility] Phosphate SerPl-mCncon 08-01 Phosphate [Mass/Vol] 3.3 mg/dL Normal 2.7-4.8 [facility] Comment on above: Order Comment: Speci men Type: BLOOD SPECIMENOrdering Facility: [facility] Address: [address] [place] [address] Performed By: #### 2 4321-2, 94650-4, 05404-7, 2777-1 ####[facility] LABORATORYCLIA [id number] [address] [place] Prealbumin [Mass/Vol]on 07-06 Prealbumin Nephelometry [Mass/Vol] 30 mg/dL Normal 17-36 [facility] Comment on above: Order Comment: Speci men Type: BLOOD SPECIMENOrdering Facility: [facility] Address: [address] [place] [address] Performed By: #### 2 4321-2, 03881-9, 51607-1, 2777-1 ####[facility] LABORATORYCLIA [id number] [address] [place] THERAPY NTon 08-01-2021 THERAPY NT Normal [facility] THERAPY NT Normal [facility] TYPE AND SCREENon 08-01-2021 ABO O Normal [facility] Comment on above: Order Comment: Speci men Type: BLOOD SPECIMENOrdering Facility: [facility] Address: [address] [place] [address] Performed By: #### T SCR ####[facility] BLOOD BANKCLIA [id number] [address] HISTORICAL AB SCR STATUS Negative [facility] Comment on above: Order Comment: Speci men Type: BLOOD SPECIMENOrdering Facility: [facility] Address: [address] [place] [address] Performed By: #### T SCR ####[facility] BLOOD BANKCLIA [id number] [address] Rh Nom (Bld) Positive [facility] Comment on above: Order Comment: Speci men Type: BLOOD SPECIMENOrdering Facility: [facility] Address: [address] [place] [address] Performed By: #### T SCR ####[facility] BLOOD BANKCLIA [id number] [address] [place] TYPE AND SCREEN EXPIRATION 08/04/2021 23:59 Normal [facility] Comment on above: Order Comment: Speci men Type: BLOOD SPECIMENOrdering Facility: [facility] Address: [address] [place] [address] Performed By: #### T SCR ####[facility] BLOOD BANKCLIA [id number] [address] [place] XR CHEST 1V FRONTALon 2021 XR CHEST 1V FRONTAL Normal [facility] aPTT PPPon 08-01-2021 aPTT Coag (PPP) [Time] 50.9 s High 23.0-32.4 [place] Comment on above: Order Comment: Speci men Type: BLOOD SPECIMENOrdering Facility: [facility] Address: [address] [place] [address] Performed By: #### 1 4979-9 ####[facility] LABORATORYCLIA [id number] [address] CBC W Auto Differential pane l (Bld)on 07-31-2021 Basophils (Bld) [#/Vol] 0.05 10*3/uL Normal <0.11 [facility] Comment on above: Order Comment: Speci men Type: BLOOD SPECIMENOrdering Facility: [facility] Address: [address] [place] [address] Performed By: #### 5 7021-8 ####[facility] LABORATORYCLIA [id number] [address] [place] [facility] Basophils/100 WBC (Bld) 0.4 % Normal [facility] Comment on above: Order Comment: Speci men Type: BLOOD SPECIMENOrdering Facility: [facility] Address: [address] [place] [address] Performed By: #### 5 7021-8 ####[facility] LABORATORYCLIA [id number] [address] Differential cell count method Nom (Bld) Auto Normal [facility] Comment on above: Order Comment: Speci men Type: BLOOD SPECIMENOrdering Facility: [facility] [facility] Address: [address] [place] [address] Performed By: #### 5 7021-8 ####[facility] LABORATORYCLIA [id number] [address] [place] Eosinophils (Bld) [#/Vol] 0.51 10*3/uL High <0.46 [facility] Comment on above: Order Comment: Speci men Type: BLOOD SPECIMENOrdering Facility: [facility] Address: [address] [place] [address] Performed By: #### 5 7021-8 ####[facility] LABORATORYCLIA [id number] [address] [place] Eosinophils/100 WBC (Bld) 4.5 % Normal [facility] Comment on above: Order Comment: Speci men Type: BLOOD SPECIMENOrdering Facility: [facility] Address: [address] [place] [address] Performed By: #### 5 7021-8 ####[facility] LABORATORYCLIA [id number] [address] [place] Erythrocyte distribution width (RBC) [Ratio] 17.5 % High 11.5-15.0 [facility] Comment on above: Order Comment: Speci men Type: BLOOD SPECIMENOrdering Facility: [facility] Address: [address] [place] [address] Performed By: #### 5 7021-8 ####[facility] LABORATORYCLIA [id number] [address] [place] Hematocrit (Bld) [Volume fraction] 30.4 % Low 39.0-51.0 [facility] Comment on above: Order Comment: Speci men Type: BLOOD SPECIMENOrdering Facility: [facility] Address: [address] [place] [address] Performed By: #### 5 7021-8 ####[facility] LABORATORYCLIA [id number] [address] [place] Hemoglobin (Bld) [Mass/Vol] 9.2 g/dL Low 13.0-17.0 [facility] Comment on above: Order Comment: Speci men Type: BLOOD SPECIMENOrdering Facility: [facility] Address: [address] [place] [address] Performed By: #### 5 7021-8 ####[facility] LABORATORYCLIA [id number] [address] IMMATURE GRAN % 0.5 % Normal [facility] Comment on above: Order Comment: Speci men Type: BLOOD SPECIMENOrdering Facility: [facility] Address: [address] [place] [address] Performed By: #### 5 7021-8 ####[facility] LABORATORYCLIA [id number] [address] IMMATURE GRAN ABS 0.06 k/uL Normal <0.10 [facility] Comment on above: Order Comment: Speci men Type: BLOOD SPECIMENOrdering Facility: [facility] Address: [address] [place] [address] Performed By: #### 5 7021-8 ####[facility] LABORATORYCLIA [id number] [address] Lymphocytes (Bld) [#/Vol] 1.99 10*3/uL Normal 1.00-4.00 [facility] Comment on above: Order Comment: Speci men Type: BLOOD SPECIMENOrdering Facility: [facility] Address: [address] [place] [address] Performed By: #### 5 7021-8 ####[facility] LABORATORYCLIA [id number] [address] Lymphocytes/100 WBC (Bld) 17.6 % Normal [facility] Comment on above: Order Comment: Speci men Type: BLOOD SPECIMENOrdering Facility: [facility] Address: [address] [place] [address] Performed By: #### 5 7021-8 ####[facility] LABORATORYCLIA [id number] [address] STATES [facility] MCH (RBC) [Entitic mass] 28.4 pg Normal 26.0-34.0 [facility] Comment on above: Order Comment: Speci men Type: BLOOD SPECIMENOrdering Facility: [facility] Address: [address] [place] [address] Performed By: #### 5 7021-8 ####[facility]ORATORYCLIA [id number] [address] [place] MCHC (RBC) [Mass/Vol] 30.3 g/dL Low 30.5-36.0 [facility] Comment on above: Order Comment: Speci men Type: BLOOD SPECIMENOrdering Facility: [facility] Address: [address] [place] [address] Performed By: #### 5 7021-8 ####[facility] LABORATORYCLIA [id number] [address] MCV (RBC) [Entitic vol] 93.8 fL Normal 80.0-100.0 [facility] Comment on above: Order Comment: Speci men Type: BLOOD SPECIMENOrdering Facility: [facility] Address: [address] [place] [address] Performed By: #### 5 7021-8 ####[facility]ORATORYCLIA [id number] [address] STATES [facility] Monocytes (Bld) [#/Vol] 0.57 10*3/uL Normal <0.87 [facility] Comment on above: Order Comment: Speci men Type: BLOOD SPECIMENOrdering Facility: [facility] Address: [address] [place] [address] Performed By: #### 5 7021-8 ####[facility]ORATORYCLIA [id number] [address] Monocytes/100 WBC (Bld) 5.0 % Normal [facility] Comment on above: Order Comment: Speci men Type: BLOOD SPECIMENOrdering Facility: [facility] Address: [address] [place] [address] Performed By: #### 5 7021-8 ####[facility]ORATORYCLIA [id number] [address] [place] Neutrophils (Bld) [#/Vol] 8.12 10*3/uL High 1.45-7.50 [facility] Comment on above: Order Comment: Speci men Type: BLOOD SPECIMENOrdering Facility: [facility] Address: [address] [place] [address] Performed By: #### 5 7021-8 ####[facility]ORATORYCLIA [id number] [address] Neutrophils/100 WBC (Bld) 72.0 % Normal [facility] Comment on above: Order Comment: Speci men Type: BLOOD SPECIMENOrdering Facility: [facility] Address: [address] [place] [address] Performed By: #### 5 7021-8 ####[facility]ORATORYCLIA [id number] [address] Nucleated RBC (Bld) [#/Vol] 10*3/uL Normal <0.01 [facility] Comment on above: Order Comment: Speci men Type: BLOOD SPECIMENOrdering Facility: [facility] Address: [address] [place] [address] Performed By: #### 5 7021-8 ####[facility]ORATORYCLIA [id number] [address] Nucleated RBC/100 WBC (Bld) [Ratio] 0.0 /100 WBC Normal [facility] Comment on above: Order Comment: Speci men Type: BLOOD SPECIMENOrdering Facility: [facility] Address: [address] [place] [address] Performed By: #### 5 7021-8 ####[facility]ORATORYCLIA [id number] [address] [place] Platelet mean volume (Bld) [Entitic vol] 10.9 fL Normal 9.0-12.7 [facility] Comment on above: Order Comment: Speci men Type: BLOOD SPECIMENOrdering Facility: [facility] Address: [address] [place] [address] Performed By: #### 5 7021-8 ####[facility]ORATORYCLIA [id number] [address] [place] Platelets (Bld) [#/Vol] 303 10*3/uL Normal 150-400 [facility] Comment on above: Order Comment: Speci men Type: BLOOD SPECIMENOrdering Facility: [facility] Address: [address] [place] [address] Performed By: #### 5 7021-8 ####[facility]ORATORYCLIA [id number] [place] [address] [place] RBC (Bld) [#/Vol] 3.24 10*6/uL Low 4.20-6.00 [facility] Comment on above: Order Comment: Speci men Type: BLOOD SPECIMENOrdering Facility: [facility] Address: [address] [place] [address] Performed By: #### 5 7021-8 ####[facility]ORATORYCLIA [id number] [place] [address] [place] [facility] WBC (Bld) [#/Vol] 11.30 10*3/uL High 3.70-11.00 [facility] Comment on above: Order Comment: Speci men Type: BLOOD SPECIMENOrdering Facility: [facility] Address: [address] [place] [address] Performed By: #### 5 7021-8 ####[facility] LABORATORYCLIA [id number] [place] [address] [place] NURSING PROGon 07-31-2021 NURSING PROG Normal [facility] aPTT PPPon 07-31-2021 aPTT Coag (PPP) [Time] 64.9 s High 23.0-32.[address] [place] Comment on above: Order Comment: Speci men Type: BLOOD SPECIMENOrdering Facility: [facility] Address: [address] [place] [address] Performed By: #### 1 4979-9 ####[facility] LABORATORYCLIA [id number] [place] [address] [place] ALLIED HEALTHon 07-30-2021 ALLIED HEALTH Normal [facility] Bacteria CSF Culton 07-31-19 22 Bacteria identified Cx Nom (CSF) CULTURE, CSF: No growth 14 days GRAM STAIN: No organisms seen Few Mononuclear cells Rare Polymorphonuclear leukocytes Gram stain performed on cytospun specimen. Normal [facility] Comment on above: Performed By: #### 6 06-4 ####[facility] LABORATORYCLIA [id number] [place] [address] [place] Basic metabolic 2000 panelon 07-30-2021 Anion gap [Moles/Vol] 9 mmol/L Normal 9-18 [facility] Comment on above: Order Comment: Speci men Type: BLOOD SPECIMENOrdering Facility: [facility] Address: [address] [place] [address] Performed By: #### 2 777-1, 97779-3, ####[facility]ORATORYCLIA [id number] [place] [address] [place] Calcium [Mass/Vol] 8.9 mg/dL Normal 8.5-10.2 [facility] Comment on above: Order Comment: Speci men Type: BLOOD SPECIMENOrdering Facility: [facility] Address: [address] [place] [address] Performed By: #### 2 777-1, 10164-7, ####[facility]ORATORYCLIA [id number] [place] [address] [place] Chloride [Moles/Vol] 95 mmol/L Low 97-105 [facility] Comment on above: Order Comment: Speci men Type: BLOOD SPECIMENOrdering Facility: [facility] Address: [address] [address] Performed By: #### 2 777-1, 48067-4, ####[facility]ORATORYCLIA [id number] [place] [address] [place] CO2 [Moles/Vol] 28 mmol/L Normal 22-30 [facility] Comment on above: Order Comment: Speci men Type: BLOOD SPECIMENOrdering Facility: [facility] Address: [address] [address] Performed By: #### 2 777-1, 93335-3, ####[facility] HOSPITALCLIA [id number] [place] [address] [place] Creatinine [Mass/Vol] 0.67 mg/dL Low 0.73-1.22 [facility] Comment on above: Order Comment: Speci men Type: BLOOD SPECIMENOrdering Facility: [facility] Address: [address] [place], [place] [phone] Performed By: #### 2 777-1, 50679-2, ####[facility]ISIA [id number] [place] [address] [place] ESTIMATED GLOMERULAR FILTRATION RATE 101 mL/min/1.73m??? Normal >=60 [facility] Comment on above: Order Comment: Speci francia Type: BLOOD SPECIMENOrdering Facility: [facility] Address: [address] [place], [place] [phone] Result Comment: Luzmaria mated Glomerular Filtration Rate [...] actual GFR. Performed By: #### 2 777-1, 18533-2, ####[facility]NAPOLISIA [id number] [place] [address] [place] Glucose [Mass/Vol] 125 mg/dL High 74-99 [facility] Comment on above: Order Comment: Speci men Type: BLOOD SPECIMENOrdering Facility: [facility] Address: [address] [place] [address] Result Comment: The [place] [employer] (ADA) provides guidance for cutoff [...] Standards of Medical Care in Diabetes 2016, [place] [employer]. Diabetes Care. 2016.39(Suppl 1). Performed By: #### 2 777-1, 44117-0, ####[facility] LABORATORYCLIA [id number] [place] [address] [place] Potassium [Moles/Vol] 3.9 mmol/L Normal 3.7-5.1 [facility] Comment on above: Order Comment: Shira feldman Type: BLOOD SPECIMENOrdering Facility: [facility] Address: [address] [place] [address] Performed By: #### 2 777-1, 94997-8, ####[facility] HOSPITALCLIA [id number] [address] [place] Sodium [Moles/Vol] 132 mmol/L Low 136-144 [facility] Comment on above: Order Comment: Shira feldman Type: BLOOD SPECIMENOrdering Facility: [facility] Address: [address] [place] [address] Performed By: #### 2 777-1, , ####[facility]ORATORYCLIA [id number] [place] [address] [place] Urea nitrogen [Mass/Vol] 38 mg/dL High 9-24 [facility] Comment on above: Order Comment: Johni francia Type: BLOOD SPECIMENOrdering Facility: [facility] Address: [address] [place] [address] Performed By: #### 2 777-1, , ####[facility]ORATORYCLIA [id number] [place] [address] [place] CBC W Auto Differential pane l (Bld)on 07-30-2021 Basophils (Bld) [#/Vol] 0.04 10*3/uL Normal <0.11 [facility] Comment on above: Order Comment: Speci men Type: BLOOD SPECIMENOrdering Facility: [facility] Address: [address] [place] [address] Performed By: #### 5 7021-8 ####[facility]ATORYCLIA [id number] [address] [place] Basophils/100 WBC (Bld) 0.4 % Normal [facility] Comment on above: Order Comment: Speci men Type: BLOOD SPECIMENOrdering Facility: [facility] Address: [address] [place] [address] Performed By: #### 5 7021-8 ####[facility]ATORYCLIA [id number] [address] [place] Differential cell count method Nom (Bld) Auto Normal [facility] Comment on above: Order Comment: Speci men Type: BLOOD SPECIMENOrdering Facility: [facility] Address: [address] [place] [address] Performed By: #### 5 7021-8 ####[facility]ATORYCLIA [id number] [place] [address] [place] Eosinophils (Bld) [#/Vol] 0.30 10*3/uL Normal <0.46 [facility] Comment on above: Order Comment: Speci men Type: BLOOD SPECIMENOrdering Facility: [facility] Address: [address] [place] [address] Performed By: #### 5 7021-8 ####[facility]ATORYCLIA [id number] [address] [place] Eosinophils/100 WBC (Bld) 2.7 % Normal [facility] Comment on above: Order Comment: Speci men Type: BLOOD SPECIMENOrdering Facility: [facility] Address: [address] [place] [address] Performed By: #### 5 7021-8 ####[facility]ATORYCLIA [id number] [address] Erythrocyte distribution width (RBC) [Ratio] 17.2 % High 11.5-15.0 [facility] Comment on above: Order Comment: Speci men Type: BLOOD SPECIMENOrdering Facility: [facility] Address: [address] [place] [address] Performed By: #### 5 7021-8 ####[facility]ORATORYCLIA [id number] [address] Hematocrit (Bld) [Volume fraction] 30.8 % Low 39.0-51.0 [facility] Comment on above: Order Comment: Speci men Type: BLOOD SPECIMENOrdering Facility: [facility] Address: [address] [place] [address] Performed By: #### 5 7021-8 ####[facility]ATORYCLIA [id number] [address] Hemoglobin (Bld) [Mass/Vol] 9.4 g/dL Low 13.0-17.0 [facility] Comment on above: Order Comment: Speci men Type: BLOOD SPECIMENOrdering Facility: [facility] Address: [address] [place] [address] Performed By: #### 5 7021-8 ####[facility]ORATORYCLIA [id number] [address] IMMATURE GRAN % 0.5 % Normal [facility] Comment on above: Order Comment: Speci men Type: BLOOD SPECIMENOrdering Facility: [facility] Address: [address] [place] [address] Performed By: #### 5 7021-8 ####[facility]ATORYCLIA [id number] [address] IMMATURE GRAN ABS 0.06 k/uL Normal <0.10 [facility] Comment on above: Order Comment: Speci men Type: BLOOD SPECIMENOrdering Facility: [facility] Address: [address] [place] [address] Performed By: #### 5 7021-8 ####[facility]ORATORYCLIA [id number] [address] Lymphocytes (Bld) [#/Vol] 1.68 10*3/uL Normal 1.00-4.00 [facility] Comment on above: Order Comment: Speci men Type: BLOOD SPECIMENOrdering Facility: [facility] Address: [address] [place] [address] Performed By: #### 5 7021-8 ####[facility]ORATORYCLIA [id number] [address] Lymphocytes/100 WBC (Bld) 15.3 % Normal [facility] Comment on above: Order Comment: Speci men Type: BLOOD SPECIMENOrdering Facility: [facility] Address: [address] [place] [address] Performed By: #### 5 7021-8 ####[facility]ORATORYCLIA [id number] [address] MCH (RBC) [Entitic mass] 28.0 pg Normal 26.0-34.0 [facility] Comment on above: Order Comment: Speci men Type: BLOOD SPECIMENOrdering Facility: [facility] Address: [address] [place] [address] Performed By: #### 5 7021-8 ####[facility]ORATORYCLIA [id number] [address] MCHC (RBC) [Mass/Vol] 30.5 g/dL Normal 30.5-36.0 [facility] Comment on above: Order Comment: Speci men Type: BLOOD SPECIMENOrdering Facility: [facility] Address: [address] [place] [address] Performed By: #### 5 7021-8 ####[facility]ORATORYCLIA [id number] [address] OF [facility] MCV (RBC) [Entitic vol] 91.7 fL Normal 80.0-100.0 [facility] Comment on above: Order Comment: Speci men Type: BLOOD SPECIMENOrdering Facility: [facility] Address: [address] [address] Performed By: #### 5 7021-8 ####[facility]ORYCLIA [id number] [address] [place] Monocytes (Bld) [#/Vol] 0.53 10*3/uL Normal <0.87 [facility] Comment on above: Order Comment: Speci men Type: BLOOD SPECIMENOrdering Facility: [facility] Address: [address] [place] [address] Performed By: #### 5 7021-8 ####[facility]ORATORYCLIA [id number] [address] Monocytes/100 WBC (Bld) 4.8 % Normal [facility] Comment on above: Order Comment: Speci men Type: BLOOD SPECIMENOrdering Facility: [facility] Address: [address] [place] [address] Performed By: #### 5 7021-8 ####[facility]ORATORYCLIA [id number] [address] [place] Neutrophils (Bld) [#/Vol] 8.39 10*3/uL High 1.45-7.50 [facility] Comment on above: Order Comment: Speci men Type: BLOOD SPECIMENOrdering Facility: [facility] Address: [address] [place] [address] Performed By: #### 5 7021-8 ####[facility]ORYCLIA [id number] [address] [place] Neutrophils/100 WBC (Bld) 76.3 % Normal [facility] Comment on above: Order Comment: Speci men Type: BLOOD SPECIMENOrdering Facility: [facility] Address: [address] [place] [address] Performed By: #### 5 7021-8 ####[facility] LABORATORYCLIA [id number] [place] [address] [place] Nucleated RBC (Bld) [#/Vol] 10*3/uL Normal <0.01 [facility] Comment on above: Order Comment: Speci men Type: BLOOD SPECIMENOrdering Facility: [facility] Address: [address] [place] [address] Performed By: #### 5 7021-8 ####[facility]ORATORYCLIA [id number] [address] [place] Nucleated RBC/100 WBC (Bld) [Ratio] 0.0 /100 WBC Normal [facility] Comment on above: Order Comment: Speci men Type: BLOOD SPECIMENOrdering Facility: [facility] Address: [address] [place] [address] Performed By: #### 5 7021-8 ####[facility]ORATORYCLIA [id number] [address] [place] Platelet mean volume (Bld) [Entitic vol] 10.9 fL Normal 9.0-12.7 [facility] Comment on above: Order Comment: Speci men Type: BLOOD SPECIMENOrdering Facility: [facility] Address: [address] [place] [address] Performed By: #### 5 7021-8 ####[facility]ORYCLIA [id number] [address] [place] Platelets (Bld) [#/Vol] 287 10*3/uL Normal 150-400 [facility] Comment on above: Order Comment: Speci men Type: BLOOD SPECIMENOrdering Facility: [facility] Address: [address] Performed By: #### 5 7021-8 ####[facility]ORATORYCLIA [id number] [place] [address] [place] RBC (Bld) [#/Vol] 3.36 10*6/uL Low 4.20-6.00 [facility] Comment on above: Order Comment: Speci men Type: BLOOD SPECIMENOrdering Facility: [facility] Address: [address] [place] [address] Performed By: #### 5 7021-8 ####[facility]ORYCLIA [id number] [place] [address] [facility] [place] WBC (Bld) [#/Vol] 11.00 10*3/uL Normal 3.70-11.00 [facility] Comment on above: Order Comment: Speci men Type: BLOOD SPECIMENOrdering Facility: [facility] Address: [address] [place] [address] Performed By: #### 5 7021-8 ####[facility]ORYCLIA [id number] [address] CSF MANUAL DIFFon 07-30-2021 DIF TTL, CSF 100 cells counted Normal [facility] Comment on above: Order Comment: Speci men Type: CEREBROSPINAL FLUIDOrdering Facility: [facility] Address: [address] [place] [address] Performed By: #### L [id number], [id number], 10283-9 ####[facility] LABORATORYCLIA [id number] [address] [place] EOSIN%, CSF 0 % Normal [facility] Comment on above: Order Comment: Speci men Type: CEREBROSPINAL FLUIDOrdering Facility: [facility] Address: [address] [place] [address] Performed By: #### L [id number], [id number], 13244-7 ####[facility] LABORATORYCLIA [id number] [address] [place] LYMPH%, CSF 75 % Normal 50-90 [facility] Comment on above: Order Comment: Speci men Type: CEREBROSPINAL FLUIDOrdering Facility: [facility] Address: [address] [place] [address] Performed By: #### L [id number], [id number], 67918-9 ####[facility] LABORATORYCLIA [id number] [address] [place] MACRO%, CSF 9 % High <1 [facility] Comment on above: Order Comment: Speci men Type: CEREBROSPINAL FLUIDOrdering Facility: [facility] Address: [address] [place] [address] Performed By: #### L [id number], [id number], 22063-3 ####[facility] LABORATORYCLIA [id number] [address] [place] MONO%, CSF 10 % Normal 10-50 [facility] Comment on above: Order Comment: Speci men Type: CEREBROSPINAL FLUIDOrdering Facility: [facility] Address: [address] [place] [address] Performed By: #### L [id number], [id number], 57269-6 ####[facility]ORATORYCLIA [id number] [address] OTHER CL%, CSF 4 % Normal [facility] Comment on above: Order Comment: Speci men Type: CEREBROSPINAL FLUIDOrdering Facility: [facility] Address: [address] [place] [address] Result Comment: Path review to follow. Performed By: #### L [id number], [id number], 66321-5 ####[facility]ATORYCLIA [id number] [address] REAC LYMPH %, CSF 2 % Normal [facility] Comment on above: Order Comment: Speci men Type: CEREBROSPINAL FLUIDOrdering Facility: [facility] Address: [address] [place] [address] Performed By: #### L [id number], [id number], 85121-0 ####[facility]ORATORYCLIA [id number] [address] CSF PATHOLOGIST INTERP (LAB REFLEX ORDER-NO BILL)on 07-30-2021 CSF STAFF REVIEW Negative Normal [facility] Comment on above: Order Comment: Speci men Type: CEREBROSPINAL FLUIDOrdering Facility: [facility] Address: [address] [place] [address] Performed By: #### L [id number], [id number], 12292-0 ####[facility]ATORYCLIA [id number] [address] Pathologist name Reviewed by Eloise rebolledo MD Normal [facility] Comment on above: Order Comment: Speci men Type: CEREBROSPINAL FLUIDOrdering Facility: [facility] Address: [address] [place] [address] Performed By: #### L [id number], XQS1379, 92196-8 ####[facility]ORATORYCLIA [id number] [address] [place] CT BRAIN WO IVCONon 07-31-19 CT BRAIN WO IVCON Normal [facility] Cell count panel (CSF)on Clarity (CSF) Clear Normal Clear [facility] Comment on above: Order Comment: Speci men Type: CEREBROSPINAL FLUIDOrdering Facility: [facility] Address: [address] [place] [address] Performed By: #### L [id number], ELM6326, 61987-6 ####[facility] LABORATORYCLIA [id number] [address] [place] Clarity (Unsp spec) Clear Normal Clear [facility] Comment on above: Order Comment: Speci men Type: CEREBROSPINAL FLUIDOrdering Facility: [facility] Address: [address] [place] [address] Performed By: #### L [id number], STY3728, 01524-7 ####[facility]ORATORYCLIA [id number] [address] [place] Color (CSF) Colorless Normal Colorless [facility] Comment on above: Order Comment: Speci men Type: CEREBROSPINAL FLUIDOrdering Facility: [facility] Address: [address] [place] [address] Performed By: #### L ON6003, APX7873, 17590-6 ####[facility]ATORYCLIA [id number] [address] [place] Color (Spun CSF) Colorless Normal Colorless [facility] Comment on above: Order Comment: Speci men Type: CEREBROSPINAL FLUIDOrdering Facility: [facility] Address: [address] [place] [address] Performed By: #### L [id number], BOF3611, 31407-0 ####[facility] LABORATORYCLIA [id number] [address] CSF TUBE NUMBER [employer] Normal [place] Comment on above: Order Comment: Speci men Type: CEREBROSPINAL FLUIDOrdering Facility: [facility] Address: [address] [place] [address] Performed By: #### L [id number], VLC4240, 08229-2 ####[facility] LABORATORYCLIA [id number] [address] [place] RBC Manual cnt (CSF) [#/Vol] 9 cells/uL High 0-5 [facility] Comment on above: Order Comment: Speci men Type: CEREBROSPINAL FLUIDOrdering Facility: [facility] Address: [address] [place] [address] Performed By: #### L [id number], [id number], 19441-9 ####[facility] LABORATORYCLIA [id number] [address] WBC Manual cnt (CSF) [#/Vol] 8 cells/uL High 0-5 [facility] Comment on above: Order Comment: Speci men Type: CEREBROSPINAL FLUIDOrdering Facility: [facility] Address: [address] [place] [address] Performed By: #### L [id number], UGW7979, 55624-8 ####[facility] LABORATORYCLIA [id number] [address] [place] Glucose CSF-mCncon 2 Glucose (CSF) [Mass/Vol] 65 mg/dL Normal 40-70 [facility] Comment on above: Order Comment: Speci men Type: CEREBROSPINAL FLUIDOrdering Facility: [facility] Address: [address] [place] [address] Result Comment: Lumb ar CSF glucose values of healthy patients are approximately 60% of the plasma values and must always be compared with a concurrently measured plasma value for adequate clinical interpretation.References: 1. Glucose HK (GLUC3) [package insert V 12.0 Citizen Of [place]]. [employer], [place], [place]. September 2015. 2. Michelle Moore, Loki HGarfield (2015). Chapter 7: Glucose and Lactate. Marianela Rothman.(eds.), Cerebrospinal Fluid in Clinical Neurology. [place]: [employer]. Performed By: #### 2 342-4, 2880-3 ####[facility] LABORATORYCLIA [id number] [address] Magnesium [facility]Pl[facility]alson [facility]-30 Magnesium [Mass/Vol] 2.5 mg/dL High 1.7-2.3 [facility] Comment on above: Order Comment: Speci men Type: BLOOD SPECIMENOrdering Facility: [facility] Address: [address] [place] [address] Performed By: #### 2 777-1, 33069-2, ####[facility] HOSPITALCLIA [id number] [address] NURSING PROGon 07-30-2021 NURSING PROG Normal [facility] Phosphate SerPl-ncon 07-30 Phosphate [Mass/Vol] 2.4 mg/dL Low 2.7-4.8 [facility] Comment on above: Order Comment: Speci men Type: BLOOD SPECIMENOrdering Facility: [facility] Address: [address] [place] [address] Performed By: #### 2 777-1, 09450-5, ####[facility] LABORATORYCLIA [id number] [address] Prot CSF-mCncon 07-30-2021 Protein (CSF) [Mass/Vol] 50 mg/dL High 15-45 [facility] Comment on above: Order Comment: Speci men Type: CEREBROSPINAL FLUIDOrdering Facility: [facility] Address: [address] [place] [address] Performed By: #### 2 342-4, 2880-3 ####[facility] LABORATORYCLIA [id number] [address] aPTT PPPon 07-30-2021 aPTT Coag (PPP) [Time] 64.1 s High 23.0-32.4 [place] Comment on above: Order Comment: Speci men Type: BLOOD SPECIMENOrdering Facility: [facility] Address: [address] [place] [address] Performed By: #### 1 4979-9 ####[facility] LABORATORYCLIA [id number] [address] Bacteria CSF Culton 07-30-19 22 Bacteria identified Cx Nom (CSF) CULTURE, CSF: No growth 14 days GRAM STAIN: No cells or organisms seen Gram stain performed on cytospun specimen. Gram stain confirmed by microbiology Normal [facility] Comment on above: Performed By: #### 6 06-4 ####[facility] LABORATORYCLIA [id number] [address] CASE MANAGEMon 07-29-2021 CASE MANAGEM Normal [facility] CBC W Auto Differential pane l (Bld)on 07-29-2021 Basophils (Bld) [#/Vol] 0.03 10*3/uL Normal <0.11 [facility] Comment on above: Order Comment: Speci men Type: BLOOD SPECIMENOrdering Facility: [facility] Address: [address] [place] [address] Performed By: #### 5 7021-8 ####[facility] LABORATORYCLIA [id number] [address] Basophils/100 WBC (Bld) 0.3 % Normal [facility] Comment on above: Order Comment: Speci men Type: BLOOD SPECIMENOrdering Facility: [facility] Address: [address] [place] [address] Performed By: #### 5 7021-8 ####[facility] LABORATORYCLIA [id number] [address] Differential cell count method Nom (Bld) Auto Normal [facility] Comment on above: Order Comment: Speci men Type: BLOOD SPECIMENOrdering Facility: [facility] Address: [address] [place] [address] Performed By: #### 5 7021-8 ####[facility] LABORATORYCLIA [id number] [address] Eosinophils (Bld) [#/Vol] 0.40 10*3/uL Normal <0.46 [facility] Comment on above: Order Comment: Speci men Type: BLOOD SPECIMENOrdering Facility: [facility] Address: [address] [place] [address] Performed By: #### 5 7021-8 ####[facility]ORATORYCLIA [id number] [address] Eosinophils/100 WBC (Bld) 3.9 % Normal [facility] Comment on above: Order Comment: Speci men Type: BLOOD SPECIMENOrdering Facility: [facility] Address: [address] [place] [address] Performed By: #### 5 7021-8 ####[facility] LABORATORYCLIA [id number] [address] Erythrocyte distribution width (RBC) [Ratio] 17.1 % High 11.5-15.0 [facility] Comment on above: Order Comment: Speci men Type: BLOOD SPECIMENOrdering Facility: [facility] Address: [address] [place] [address] Performed By: #### 5 7021-8 ####[facility] LABORATORYCLIA [id number] [address] Hematocrit (Bld) [Volume fraction] 32.0 % Low 39.0-51.0 [facility] Comment on above: Order Comment: Speci men Type: BLOOD SPECIMENOrdering Facility: [facility] Address: [address] [place] [address] Performed By: #### 5 7021-8 ####[facility] LABORATORYCLIA [id number] [address] [place] Hemoglobin (Bld) [Mass/Vol] 9.7 g/dL Low 13.0-17.0 [facility] Comment on above: Order Comment: Speci men Type: BLOOD SPECIMENOrdering Facility: [facility] Address: [address] [place] [address] Performed By: #### 5 7021-8 ####[facility] LABORATORYCLIA [id number] [address] OF [facility] IMMATURE GRAN % 0.6 % Normal [facility] Comment on above: Order Comment: Speci men Type: BLOOD SPECIMENOrdering Facility: [facility] Address: [address] [place] [address] Performed By: #### 5 7021-8 ####[facility] LABORATORYCLIA [id number] [address] IMMATURE GRAN ABS 0.06 k/uL Normal <0.10 [facility] Comment on above: Order Comment: Speci men Type: BLOOD SPECIMENOrdering Facility: [facility] Address: [address] [place] [address] Performed By: #### 5 7021-8 ####[facility] LABORATORYCLIA [id number] [address] [place] Lymphocytes (Bld) [#/Vol] 1.96 10*3/uL Normal 1.00-4.00 [facility] Comment on above: Order Comment: Speci men Type: BLOOD SPECIMENOrdering Facility: [facility] Address: [address] [place] [address] Performed By: #### 5 7021-8 ####[facility] LABORATORYCLIA [id number] [address] Lymphocytes/100 WBC (Bld) 19.0 % Normal [facility] Comment on above: Order Comment: Speci men Type: BLOOD SPECIMENOrdering Facility: [facility] Address: [address] [place] [address] Performed By: #### 5 7021-8 ####[facility] LABORATORYCLIA [id number] [address] MCH (RBC) [Entitic mass] 28.0 pg Normal 26.0-34.0 [facility] Comment on above: Order Comment: Speci men Type: BLOOD SPECIMENOrdering Facility: [facility] Address: [address] [place] [address] Performed By: #### 5 7021-8 ####[facility] LABORATORYCLIA [id number] [address] MCHC (RBC) [Mass/Vol] 30.3 g/dL Low 30.5-36.0 [facility] Comment on above: Order Comment: Speci men Type: BLOOD SPECIMENOrdering Facility: [facility] Address: [address] [place] [address] Performed By: #### 5 7021-8 ####[facility] LABORATORYCLIA [id number] [address] MCV (RBC) [Entitic vol] 92.5 fL Normal 80.0-100.0 [facility] Comment on above: Order Comment: Speci men Type: BLOOD SPECIMENOrdering Facility: [facility] Address: [address] [place] [address] Performed By: #### 5 7021-8 ####[facility]ORATORYCLIA [id number] [address] Monocytes (Bld) [#/Vol] 0.53 10*3/uL Normal <0.87 [facility] Comment on above: Order Comment: Speci men Type: BLOOD SPECIMENOrdering Facility: [facility] Address: [address] [place] [address] Performed By: #### 5 7021-8 ####[facility]ORATORYCLIA [id number] [address] Monocytes/100 WBC (Bld) 5.2 % Normal [facility] Comment on above: Order Comment: Speci men Type: BLOOD SPECIMENOrdering Facility: [facility] Address: [address] [place] [address] Performed By: #### 5 7021-8 ####[facility] LABORATORYCLIA [id number] [address] [place] Neutrophils (Bld) [#/Vol] 7.31 10*3/uL Normal 1.45-7.50 [facility] Comment on above: Order Comment: Speci men Type: BLOOD SPECIMENOrdering Facility: [facility] Address: [address] [place] [address] Performed By: #### 5 7021-8 ####[facility]ATORYCLIA [id number] [address] [place] Neutrophils/100 WBC (Bld) 71.0 % Normal [facility] Comment on above: Order Comment: Speci men Type: BLOOD SPECIMENOrdering Facility: [facility] Address: [address] [place] [address] Performed By: #### 5 7021-8 ####[facility]ORATORYCLIA [id number] [address] [place] Nucleated RBC (Bld) [#/Vol] 10*3/uL Normal <0.01 [facility] Comment on above: Order Comment: Speci men Type: BLOOD SPECIMENOrdering Facility: [facility] Address: [address] [place] [address] Performed By: #### 5 7021-8 ####[facility]ORATORYCLIA [id number] [address] [place] Nucleated RBC/100 WBC (Bld) [Ratio] 0.0 /100 WBC Normal [facility] Comment on above: Order Comment: Speci men Type: BLOOD SPECIMENOrdering Facility: [facility] Address: [address] [place] [address] Performed By: #### 5 7021-8 ####[facility]ATORYCLIA [id number] [address] Platelet mean volume (Bld) [Entitic vol] 11.2 fL Normal 9.0-12.7 [facility] Comment on above: Order Comment: Speci men Type: BLOOD SPECIMENOrdering Facility: [facility] Address: [address] [place] [address] Performed By: #### 5 7021-8 ####[facility]ORATORYCLIA [id number] [address] [place] Platelets (Bld) [#/Vol] 276 10*3/uL Normal 150-400 [facility] Comment on above: Order Comment: Speci men Type: BLOOD SPECIMENOrdering Facility: [facility] Address: [address] [place] [address] Performed By: #### 5 7021-8 ####[facility] LABORATORYCLIA [id number] [address] [place] RBC (Bld) [#/Vol] 3.46 10*6/uL Low 4.20-6.00 [facility] Comment on above: Order Comment: Speci men Type: BLOOD SPECIMENOrdering Facility: [facility] Address: [address] [place] [address] Performed By: #### 5 7021-8 ####[facility]ORATORYCLIA [id number] [address] [place] WBC (Bld) [#/Vol] 10.29 10*3/uL Normal 3.70-11.00 [facility] Comment on above: Order Comment: Speci men Type: BLOOD SPECIMENOrdering Facility: [facility] Address: [address] [place] [address] Performed By: #### 5 7021-8 ####[facility] LABORATORYCLIA [id number] [address] [place] NURSING PROGon 07-29-2021 NURSING PROG Normal [facility] THERAPY NTon 07-29-2021 THERAPY NT Normal [facility] aPTT PPPon 07-29-2021 aPTT Coag (PPP) [Time] 59.2 s High 23.0-32.[address] [place] Comment on above: Order Comment: Speci men Type: BLOOD SPECIMENOrdering Facility: [facility] Address: [address] [place] [address] Performed By: #### 1 4979-9 ####[facility] LABORATORYCLIA [id number] [place] [address] [place] ALLIED HEALTHon 07-28-2021 ALLIED HEALTH Normal [facility] Basic metabolic 2000 panelon 07-28-2021 Anion gap [Moles/Vol] 7 mmol/L Low 9-18 [facility] Comment on above: Order Comment: Speci men Type: BLOOD SPECIMENOrdering Facility: [facility] Address: [address] [place] [address] Performed By: #### 1 4338-8, 04198-0, 2777-1, 63371-8 ####[facility] LABORATORYCLIA [id number] [place] [address] [place] Calcium [Mass/Vol] 9.0 mg/dL Normal 8.5-10.2 [facility] Comment on above: Order Comment: Speci men Type: BLOOD SPECIMENOrdering Facility: [facility] Address: [address] [place] [address] Performed By: #### 1 4338-8, 12194-3, 2777-1, 55616-6 ####[facility] LABORATORYCLIA [id number] [place] [address] [place] Chloride [Moles/Vol] 94 mmol/L Low 97-105 [facility] Comment on above: Order Comment: Speci men Type: BLOOD SPECIMENOrdering Facility: [facility] Address: [address] [place] [address] Performed By: #### 1 4338-8, 28706-4, 2777-1, 31279-6 ####[facility]ORATORYCLIA [id number] [place] [address] [place] CO2 [Moles/Vol] 31 mmol/L High 22-30 [facility] Comment on above: Order Comment: Speci men Type: BLOOD SPECIMENOrdering Facility: [facility] Address: [address] [place] [address] Performed By: #### 1 4338-8, 70139-1, 2777-1, 79013-5 ####[facility] LABORATORYCLIA [id number] [place] [address] [place] Creatinine [Mass/Vol] 0.75 mg/dL Normal 0.73-1.22 [facility] Comment on above: Order Comment: Speci men Type: BLOOD SPECIMENOrdering Facility: [facility] Address: [address] [place] [address] Performed By: #### 1 4338-8, 37000-0, 7-1, 05439-7 ####[facility]POLISIA [id number] [address] OF [facility] ESTIMATED GLOMERULAR FILTRATION RATE 98 mL/min/1.73m??? Normal >=60 [facility] Comment on above: Order Comment: Speci men Type: BLOOD SPECIMENOrdering Facility: [facility] Address: [address] [place] [address] Result Comment: Luzmaria mated Glomerular Filtration Rate [...] actual GFR. Performed By: #### 1 4338-8, 01936-2, 2777-1, 81215-0 ####[facility] LABORATORYCLIA [id number] [place] [address] [place] Glucose [Mass/Vol] 122 mg/dL High 74-99 [facility] Comment on above: Order Comment: Speci men Type: BLOOD SPECIMENOrdering Facility: [facility] Address: [address] [place], [place] [phone] Result Comment: The [place] [employer] (ADA) provides guidance for cutoff [...] Standards of Medical Care in Diabetes 2016, [place] [employer]. Diabetes Care. 2016.39(Suppl 1). Performed By: #### 1 4338-8, 15393-9, 2777-, 64086-5 ####[facility] LABORATORYCLIA [id number] [place] [address] [place] Potassium [Moles/Vol] 4.0 mmol/L Normal 3.7-5.1 [facility] Comment on above: Order Comment: Speci men Type: BLOOD SPECIMENOrdering Facility: [facility] Address: [address] [place], [place] [phone] Performed By: #### 1 4338-8, , 2776-05, 95690-9 ####[facility] LABORATORYCLIA [id number] [place] [address] [place] Sodium [Moles/Vol] 132 mmol/L Low 136-144 [facility] Comment on above: Order Comment: Speci men Type: BLOOD SPECIMENOrdering Facility: [facility] Address: [address] [id number] Performed By: #### 1 4338-8, 10888-4, 2776-05, 04570-2 ####[facility] LABORATORYCLIA [id number] [place] [address] [place] Urea nitrogen [Mass/Vol] 34 mg/dL High 9-24 [facility] Comment on above: Order Comment: Speci men Type: BLOOD SPECIMENOrdering Facility: [facility] Address: [address] [place] [address] Performed By: #### 1 4338-8, 51600-5, 2777-1, 67942-3 ####[facility] LABORATORYCLIA [id number] [address] [place] [facility] CBC W Auto Differential pane l (Bld)on 07-28-2021 Basophils (Bld) [#/Vol] 0.04 10*3/uL Normal <0.11 [facility] Comment on above: Order Comment: Speci men Type: BLOOD SPECIMENOrdering Facility: [facility] Address: [address] [place] [address] Performed By: #### 5 7021-8 ####[facility] LABORATORYCLIA [id number] [address] [place] Basophils/100 WBC (Bld) 0.5 % Normal [facility] Comment on above: Order Comment: Speci men Type: BLOOD SPECIMENOrdering Facility: [facility] Address: [address] [place] [address] Performed By: #### 5 7021-8 ####[facility] LABORATORYCLIA [id number] [address] Differential cell count method Nom (Bld) Auto Normal [facility] Comment on above: Order Comment: Speci men Type: BLOOD SPECIMENOrdering Facility: [facility] Address: [address] [address] Performed By: #### 5 7021-8 ####[facility] LABORATORYCLIA [id number] [address] [place] Eosinophils (Bld) [#/Vol] 0.30 10*3/uL Normal <0.46 [facility] Comment on above: Order Comment: Speci men Type: BLOOD SPECIMENOrdering Facility: [facility] Address: [address] [address] Performed By: #### 5 7021-8 ####[facility] LABORATORYCLIA [id number] [address] Eosinophils/100 WBC (Bld) 3.4 % Normal [facility] Comment on above: Order Comment: Speci men Type: BLOOD SPECIMENOrdering Facility: [facility] Address: [address] [place] [address] Performed By: #### 5 7021-8 ####[facility] LABORATORYCLIA [id number] [address] Erythrocyte distribution width (RBC) [Ratio] 16.9 % High 11.5-15.0 [facility] Comment on above: Order Comment: Speci men Type: BLOOD SPECIMENOrdering Facility: [facility] Address: [address] [place] [address] Performed By: #### 5 7021-8 ####[facility] LABORATORYCLIA [id number] [address] Hematocrit (Bld) [Volume fraction] 30.3 % Low 39.0-51.0 [facility] Comment on above: Order Comment: Speci men Type: BLOOD SPECIMENOrdering Facility: [facility] Address: [address] [place] [address] Performed By: #### 5 7021-8 ####[facility] LABORATORYCLIA [id number] [address] [place] Hemoglobin (Bld) [Mass/Vol] 9.2 g/dL Low 13.0-17.0 [facility] Comment on above: Order Comment: Speci men Type: BLOOD SPECIMENOrdering Facility: [facility] Address: [address] [place] [address] Performed By: #### 5 7021-8 ####[facility] LABORATORYCLIA [id number] [address] IMMATURE GRAN % 0.6 % Normal [facility] Comment on above: Order Comment: Speci men Type: BLOOD SPECIMENOrdering Facility: [facility] Address: [address] [place] [address] Performed By: #### 5 7021-8 ####[facility] LABORATORYCLIA [id number] [address] STATES [facility] IMMATURE GRAN ABS 0.05 k/uL Normal <0.10 [facility] Comment on above: Order Comment: Speci men Type: BLOOD SPECIMENOrdering Facility: [facility] Address: [address] [place] [address] Performed By: #### 5 7021-8 ####[facility] LABORATORYCLIA [id number] [address] Lymphocytes (Bld) [#/Vol] 1.68 10*3/uL Normal 1.00-4.00 [facility] Comment on above: Order Comment: Speci men Type: BLOOD SPECIMENOrdering Facility: [facility] Address: [address] [place] [address] Performed By: #### 5 7021-8 ####[facility] LABORATORYCLIA [id number] [address] Lymphocytes/100 WBC (Bld) 19.2 % Normal [facility] Comment on above: Order Comment: Speci men Type: BLOOD SPECIMENOrdering Facility: [facility] Address: [address] [place] [address] Performed By: #### 5 7021-8 ####[facility] LABORATORYCLIA [id number] [address] MCH (RBC) [Entitic mass] 28.4 pg Normal 26.0-34.0 [facility] Comment on above: Order Comment: Speci men Type: BLOOD SPECIMENOrdering Facility: [facility] Address: [address] [place] [address] Performed By: #### 5 7021-8 ####[facility] LABORATORYCLIA [id number] [address] MCHC (RBC) [Mass/Vol] 30.4 g/dL Low 30.5-36.0 [facility] Comment on above: Order Comment: Speci men Type: BLOOD SPECIMENOrdering Facility: [facility] Address: [address] [address] Performed By: #### 5 7021-8 ####[facility] LABORATORYCLIA [id number] [address] OF [facility] MCV (RBC) [Entitic vol] 93.5 fL Normal 80.0-100.0 [facility] Comment on above: Order Comment: Speci men Type: BLOOD SPECIMENOrdering Facility: [facility] Address: [address] [place] [address] Performed By: #### 5 7021-8 ####[facility]ORATORYCLIA [id number] [address] [place] Monocytes (Bld) [#/Vol] 0.58 10*3/uL Normal <0.87 [facility] Comment on above: Order Comment: Speci men Type: BLOOD SPECIMENOrdering Facility: [facility] Address: [address] [place] [address] Performed By: #### 5 7021-8 ####[facility] LABORATORYCLIA [id number] [address] [place] Monocytes/100 WBC (Bld) 6.6 % Normal [facility] Comment on above: Order Comment: Speci men Type: BLOOD SPECIMENOrdering Facility: [facility] Address: [address] [place] [address] Performed By: #### 5 7021-8 ####[facility] LABORATORYCLIA [id number] [address] [place] Neutrophils (Bld) [#/Vol] 6.11 10*3/uL Normal 1.45-7.50 [facility] Comment on above: Order Comment: Speci men Type: BLOOD SPECIMENOrdering Facility: [facility] Address: [address] [place] [address] Performed By: #### 5 7021-8 ####[facility] LABORATORYCLIA [id number] [place] [address] [place] Neutrophils/100 WBC (Bld) 69.7 % Normal [facility] Comment on above: Order Comment: Speci men Type: BLOOD SPECIMENOrdering Facility: [facility] Address: [address] [address] Performed By: #### 5 7021-8 ####[facility]ORATORYCLIA [id number] [address] [place] Nucleated RBC (Bld) [#/Vol] 10*3/uL Normal <0.01 [facility] Comment on above: Order Comment: Speci men Type: BLOOD SPECIMENOrdering Facility: [facility] Address: [address] [place] [address] Performed By: #### 5 7021-8 ####[facility]ORATORYCLIA [id number] [address] Nucleated RBC/100 WBC (Bld) [Ratio] 0.0 /100 WBC Normal [facility] Comment on above: Order Comment: Speci men Type: BLOOD SPECIMENOrdering Facility: [facility] Address: [address] [place] [address] Performed By: #### 5 7021-8 ####[facility]ORATORYCLIA [id number] [address] Platelet mean volume (Bld) [Entitic vol] 11.3 fL Normal 9.0-12.7 [facility] Comment on above: Order Comment: Speci men Type: BLOOD SPECIMENOrdering Facility: [facility] Address: [address] Performed By: #### 5 7021-8 ####[facility] LABORATORYCLIA [id number] [address] [place] Platelets (Bld) [#/Vol] 238 10*3/uL Normal 150-400 [facility] Comment on above: Order Comment: Speci men Type: BLOOD SPECIMENOrdering Facility: [facility] Address: [address] [place], [place] [address] Performed By: #### 5 7021-8 ####[facility]ORATORYCLIA [id number] [address] STATES OF [facility] RBC (Bld) [#/Vol] 3.24 10*6/uL Low 4.20-6.00 [facility] Comment on above: Order Comment: Speci men Type: BLOOD SPECIMENOrdering Facility: [facility] Address: [address] [place] [address] Performed By: #### 5 7021-8 ####[facility] LABORATORYCLIA [id number] [address] WBC (Bld) [#/Vol] 8.76 10*3/uL Normal 3.70-11.00 [facility] Comment on above: Order Comment: Speci men Type: BLOOD SPECIMENOrdering Facility: [facility] Address: [address] [place] [address] Performed By: #### 5 7021-8 ####[facility] LABORATORYCLIA [id number] [address] MRI BRAIN WO/W IVCONon 07-28 MRI BRAIN WO/W IVCON Normal [facility] Magnesium SerPl-mCncon 07-28 Magnesium [Mass/Vol] 2.5 mg/dL High 1.7-2.3 [facility] Comment on above: Order Comment: Speci men Type: BLOOD SPECIMENOrdering Facility: [facility] Address: [address] [place] [address] Performed By: #### 1 4338-8, 25007-9, 2777-1, 01318-2 ####[facility]ORATORYCLIA [id number] [address] NURSING PROGon 07-28-2021 NURSING PROG Normal [facility] NURSING PROG Normal [facility] Phosphate SerPl-mCncon 07-28 Phosphate [Mass/Vol] 2.8 mg/dL Normal 2.7-4.8 [facility] Comment on above: Order Comment: Speci men Type: BLOOD SPECIMENOrdering Facility: [facility] Address: [address] [place] [address] Performed By: #### 1 4338-8, 76485-1, 2777-1, 60616-2 ####[facility] HOSPITALCLIA [id number] [address] STATES OF [facility] Prealbumin [Mass/Vol]on 07-06 Prealbumin Nephelometry [Mass/Vol] 25 mg/dL Normal [facility] Comment on above: Order Comment: Speci men Type: BLOOD SPECIMENOrdering Facility: [facility] Address: [address] [place] [address] Performed By: #### 1 4338-8, 64583-9, 2777-, 39145-5 ####[facility] HOSPITALCLIA [id number] [place] [address] [place] aPTT PPPon 07-28-2021 aPTT Coag (PPP) [Time] 53.0 s High 23.0-32.[address] [place] Comment on above: Order Comment: Speci men Type: BLOOD SPECIMENOrdering Facility: [facility] Address: [address] [place] [address] Performed By: #### 1 4979-9 ####[facility]OSPITALCLIA [id number] [address] [place] aPTT Coag (PPP) [Time] 57.2 s High 23.0-32.[address] [place] Comment on above: Order Comment: Speci men Type: BLOOD SPECIMENOrdering Facility: [facility] Address: [address] [place] [address] Performed By: #### 1 4979-9 ####[facility] LABORATORYCLIA [id number] [place] [address] [place] Bacteria CSF Culton 07-28-19 22 Bacteria identified Cx Nom (CSF) CULTURE, CSF: No growth 14 days GRAM STAIN: No organisms seen Rare Polymorphonuclear leukocytes Rare Red Blood Cells Gram stain performed on cytospun specimen. Normal [facility] Comment on above: Performed By: #### 6 06-4 ####[facility]ORATORYCLIA [id number] [address] Bacteria Spec Resp Culton Bacteria identified Respiratory culture Nom (Unsp spec) CULTURE, RESPIRATORY: Rare Normal respiratory chris present GRAM STAIN: No organisms seen Rare Polymorphonuclear leukocytes Rare Epithelial cells Normal [facility] Comment on above: Performed By: #### 3 2355-0 ####[facility]ORATORYCLIA [id number] [address] [place] CASE MANAGEMon 07-27-2021 CASE MANAGEM Normal [facility] CBC W Auto Differential pane l (Bld)on 07-27-2021 Basophils (Bld) [#/Vol] 0.04 10*3/uL Normal <0.11 [facility] Comment on above: Order Comment: Speci men Type: BLOOD SPECIMENOrdering Facility: [facility] Address: [address] [place] [address] Performed By: #### 5 7021-8 ####[facility]ORATORYCLIA [id number] [address] STATES OF [facility] Basophils/100 WBC (Bld) 0.4 % Normal [facility] Comment on above: Order Comment: Speci men Type: BLOOD SPECIMENOrdering Facility: [facility] Address: [address] [place] [address] Performed By: #### 5 7021-8 ####[facility]ORATORYCLIA [id number] [address] OF [facility] Differential cell count method Nom (Bld) Auto Normal [facility] Comment on above: Order Comment: Speci men Type: BLOOD SPECIMENOrdering Facility: [facility] Address: [address] [place] [address] Performed By: #### 5 7021-8 ####[facility]ORATORYCLIA [id number] [address] [place] Eosinophils (Bld) [#/Vol] 0.50 10*3/uL High <0.46 [facility] Comment on above: Order Comment: Speci men Type: BLOOD SPECIMENOrdering Facility: [facility] Address: [address] [place] [address] Performed By: #### 5 7021-8 ####[facility]ATORYCLIA [id number] [address] [place] Eosinophils/100 WBC (Bld) 5.2 % Normal [facility] Comment on above: Order Comment: Speci men Type: BLOOD SPECIMENOrdering Facility: [facility] Address: [address] [place] [address] Performed By: #### 5 7021-8 ####[facility]ATORYCLIA [id number] [address] [place] Erythrocyte distribution width (RBC) [Ratio] 16.8 % High 11.5-15.0 [facility] Comment on above: Order Comment: Speci men Type: BLOOD SPECIMENOrdering Facility: [facility] Address: [address] [place] [address] Performed By: #### 5 7021-8 ####[facility]ORATORYCLIA [id number] [address] [place] Hematocrit (Bld) [Volume fraction] 29.8 % Low 39.0-51.0 [facility] Comment on above: Order Comment: Speci men Type: BLOOD SPECIMENOrdering Facility: [facility] Address: [address] [place] [address] Performed By: #### 5 7021-8 ####[facility]ORATORYCLIA [id number] [address] [place] Hemoglobin (Bld) [Mass/Vol] 9.0 g/dL Low 13.0-17.0 [facility] Comment on above: Order Comment: Speci men Type: BLOOD SPECIMENOrdering Facility: [facility] Address: [address] [place] [address] Performed By: #### 5 7021-8 ####[facility]ORATORYCLIA [id number] [address] IMMATURE GRAN % 0.6 % Normal [facility] Comment on above: Order Comment: Speci men Type: BLOOD SPECIMENOrdering Facility: [facility] Address: [address] [place] [address] Performed By: #### 5 7021-8 ####[facility]ORATORYCLIA [id number] [address] IMMATURE GRAN ABS 0.06 k/uL Normal <0.10 [facility] Comment on above: Order Comment: Speci men Type: BLOOD SPECIMENOrdering Facility: [facility] Address: [address] [place] [address] Performed By: #### 5 7021-8 ####[facility] LABORATORYCLIA [id number] [address] [place] Lymphocytes (Bld) [#/Vol] 1.73 10*3/uL Normal 1.00-4.00 [facility] Comment on above: Order Comment: Speci men Type: BLOOD SPECIMENOrdering Facility: [facility] Address: [address] [place] [address] Performed By: #### 5 7021-8 ####[facility]ORATORYCLIA [id number] [address] Lymphocytes/100 WBC (Bld) 17.9 % Normal [facility] Comment on above: Order Comment: Speci men Type: BLOOD SPECIMENOrdering Facility: [facility] Address: [address] [place] [address] Performed By: #### 5 7021-8 ####[facility] LABORATORYCLIA [id number] [place] [address] [place] MCH (RBC) [Entitic mass] 28.1 pg Normal 26.0-34.0 [facility] Comment on above: Order Comment: Speci men Type: BLOOD SPECIMENOrdering Facility: [facility] Address: [address] [place] [address] Performed By: #### 5 7021-8 ####[facility]ORATORYCLIA [id number] [address] STATES [facility] MCHC (RBC) [Mass/Vol] 30.2 g/dL Low 30.5-36.0 [facility] Comment on above: Order Comment: Speci men Type: BLOOD SPECIMENOrdering Facility: [facility] Address: [address] [place] [address] Performed By: #### 5 7021-8 ####[facility]ORATORYCLIA [id number] [address] MCV (RBC) [Entitic vol] 93.1 fL Normal 80.0-100.0 [facility] Comment on above: Order Comment: Speci men Type: BLOOD SPECIMENOrdering Facility: [facility] Address: [address] [place] [address] Performed By: #### 5 7021-8 ####[facility]ORATORYCLIA [id number] [address] STATES OF [facility] Monocytes (Bld) [#/Vol] 0.59 10*3/uL Normal <0.87 [facility] Comment on above: Order Comment: Speci men Type: BLOOD SPECIMENOrdering Facility: [facility] Address: [address] [place] [address] Performed By: #### 5 7021-8 ####[facility]ATORYCLIA [id number] [address] Monocytes/100 WBC (Bld) 6.1 % Normal [facility] Comment on above: Order Comment: Speci men Type: BLOOD SPECIMENOrdering Facility: [facility] Address: [address] [place] [address] Performed By: #### 5 7021-8 ####[facility]ORATORYCLIA [id number] [address] [place] Neutrophils (Bld) [#/Vol] 6.75 10*3/uL Normal 1.45-7.50 [facility] Comment on above: Order Comment: Speci men Type: BLOOD SPECIMENOrdering Facility: [facility] Address: [address] [place] [address] Performed By: #### 5 7021-8 ####[facility]ATORYCLIA [id number] [address] Neutrophils/100 WBC (Bld) 69.8 % Normal [facility] Comment on above: Order Comment: Speci men Type: BLOOD SPECIMENOrdering Facility: [facility] Address: [address] [place] [address] Performed By: #### 5 7021-8 ####[facility]ORATORYCLIA [id number] [address] Nucleated RBC (Bld) [#/Vol] 10*3/uL Normal <0.01 [facility] Comment on above: Order Comment: Speci men Type: BLOOD SPECIMENOrdering Facility: [facility] Address: [address] [place] [address] Performed By: #### 5 7021-8 ####[facility]ORATORYCLIA [id number] [address] Nucleated RBC/100 WBC (Bld) [Ratio] 0.0 /100 WBC Normal [facility] Comment on above: Order Comment: Speci men Type: BLOOD SPECIMENOrdering Facility: [facility] Address: [address] [place] [address] Performed By: #### 5 7021-8 ####[facility]ORATORYCLIA [id number] [address] Platelet mean volume (Bld) [Entitic vol] 11.3 fL Normal 9.0-12.7 [facility] Comment on above: Order Comment: Speci men Type: BLOOD SPECIMENOrdering Facility: [facility] Address: [address] [place] [address] Performed By: #### 5 7021-8 ####[facility]ORATORYCLIA [id number] [address] [place] Platelets (Bld) [#/Vol] 227 10*3/uL Normal 150-400 [facility] Comment on above: Order Comment: Speci men Type: BLOOD SPECIMENOrdering Facility: [facility] Address: [address] [place] [address] Performed By: #### 5 7021-8 ####[facility]ORATORYCLIA [id number] [place] [address] [place] RBC (Bld) [#/Vol] 3.20 10*6/uL Low 4.20-6.00 [facility] Comment on above: Order Comment: Speci men Type: BLOOD SPECIMENOrdering Facility: [facility] Address: [address] [place] [address] Performed By: #### 5 7021-8 ####[facility]ORATORYCLIA [id number] [address] STATES OF [facility] WBC (Bld) [#/Vol] 9.67 10*3/uL Normal 3.70-11.00 [facility] Comment on above: Order Comment: Speci men Type: BLOOD SPECIMENOrdering Facility: [facility] Address: [address] [place] [address] Performed By: #### 5 7021-8 ####[facility]ORATORYCLIA [id number] [address] [place] CONSULT PROGon 07-27-2021 CONSULT PROG Normal [facility] CSF MANUAL DIFFon 07-27-2021 DIF TTL, CSF 100 cells counted Normal [facility] Comment on above: Order Comment: Speci men Type: CEREBROSPINAL FLUIDOrdering Facility: [facility] Address: [address] [place] [address] Performed By: #### L [id number], 38086-5, [id number] ####[facility]ORATORYCLIA [id number] [address] [place] LYMPH%, CSF 75 % Normal 50-90 [facility] Comment on above: Order Comment: Speci men Type: CEREBROSPINAL FLUIDOrdering Facility: [facility] Address: [address] [place] [address] Performed By: #### L [id number], 82578-4, [id number] ####[facility]ORYCLIA [id number] [place] [address] [place] MONO%, CSF 22 % Normal 10-50 [facility] Comment on above: Order Comment: Speci men Type: CEREBROSPINAL FLUIDOrdering Facility: [facility] Address: [address] [place] [address] Performed By: #### L [id number], 97672-5, [id number] ####[facility]ORYCLIA [id number] [place] [address] [place] NEUT%, CSF 2 % Normal 0-3 [facility] Comment on above: Order Comment: Speci men Type: CEREBROSPINAL FLUIDOrdering Facility: [facility] Address: [address] [place] [address] Performed By: #### L [id number], 74194-8, [id number] ####[facility]ORYCLIA [id number] [address] OF [facility] OTHER CL%, CSF 1 % Normal [facility] Comment on above: Order Comment: Speci men Type: CEREBROSPINAL FLUIDOrdering Facility: [facility] Address: [address] [place] [address] Result Comment: Path ologist review of microscopy results to follow Performed By: #### L RC6982, 78350-4, [id number] ####[facility]ORYCLIA [id number] [address] [place] CSF PATHOLOGIST INTERP (LAB REFLEX ORDER-NO BILL)on 07-27-2021 CSF STAFF REVIEW Negative Normal [facility] Comment on above: Order Comment: Speci men Type: CEREBROSPINAL FLUIDOrdering Facility: [facility] Address: [address] [place] [address] Performed By: #### L [id number], 28880-8, [id number] ####[facility] [facility]ORYCLIA [id number] [address] Pathologist name Reviewed by Amador Stevens MD [facility] Comment on above: Order Comment: Speci men Type: CEREBROSPINAL FLUIDOrdering Facility: [facility] Address: [address] [place] [address] Performed By: #### L [id number], 99904-5, [id number] ####[facility]ORYCLIA [id number] [address] Cell count panel (CSF)on Clarity (CSF) Clear Normal Clear [facility] Comment on above: Order Comment: Speci men Type: CEREBROSPINAL FLUIDOrdering Facility: [facility] Address: [address] [place] [address] Performed By: #### L [id number], 66703-6, [id number] ####[facility]ORYCLIA [id number] [address] Clarity (Unsp spec) Not Indicated Normal Clear [place] Comment on above: Order Comment: Speci men Type: CEREBROSPINAL FLUIDOrdering Facility: [facility] Address: [address] [place] [address] Performed By: #### L [id number], 10604-2, [id number] ####[facility]ORYCLIA [id number] [address] Color (CSF) Colorless Normal Colorless [facility] Comment on above: Order Comment: Speci men Type: CEREBROSPINAL FLUIDOrdering Facility: [facility] Address: [address] [place] [address] Performed By: #### L [id number], 46381-6, [id number] ####[facility]ORATORYCLIA [id number] [address] Color (Spun CSF) Not Indicated Normal Colorless [facility] Comment on above: Order Comment: Speci men Type: CEREBROSPINAL FLUIDOrdering Facility: [facility] Address: [address] [place] [address] Performed By: #### L [id number], 83246-4, [id number] ####[facility] LABORATORYCLIA [id number] [address] CSF TUBE NUMBER [employer] Normal [place] Comment on above: Order Comment: Shira feldman Type: CEREBROSPINAL FLUIDOrdering Facility: [facility] Address: [address] [place] [address] Performed By: #### L [id number], 84433-2, [id number] ####[facility] LABORATORYCLIA [id number] [address] [place] RBC Manual cnt (CSF) [#/Vol] 39 cells/uL High 0-5 [facility] Comment on above: Order Comment: Shira feldman Type: CEREBROSPINAL FLUIDOrdering Facility: [facility] Address: [address] [place] [address] Performed By: #### L [id number], 09599-4, [id number] ####[facility] [facility]ATORYCLIA [id number] [address] WBC Manual cnt (CSF) [#/Vol] 14 cells/uL High 0-5 [facility] Comment on above: Order Comment: Shira feldman Type: CEREBROSPINAL FLUIDOrdering Facility: [facility] Address: [address] [place] [address] Performed By: #### L QY6645, 38386-8, [id number] ####[facility] LABORATORYCLIA [id number] [address] [place] Glucose CSF-mCncon 2 Glucose (CSF) [Mass/Vol] 64 mg/dL Normal 40-70 [facility] Comment on above: Order Comment: Shira feldman Type: CEREBROSPINAL FLUIDOrdering Facility: [facility] Address: [address] [place] [address] Result Comment: Lumb ar CSF glucose values of healthy patients are approximately 60% of the plasma values and must always be compared with a concurrently measured plasma value for adequate clinical interpretation.References: 1. Glucose HK (GLUC3) [package insert V 12.0 Citizen Of [place]]. [employer], [place], [place]. September 2015. 2. Michelle Moore, Loki, H. (2015). Chapter 7: Glucose and Lactate. Marianela Rothman.(eds.), Cerebrospinal Fluid in Clinical Neurology. [place]: [employer]. Performed By: #### 2 342-4, 2880-3 ####[facility] LABORATORYCLIA [id number] [place] [id number] [place] NUTRITIONon 07-27-2021 NUTRITION Normal [facility] Prot CSF-mCncon 07-27-2021 Protein (CSF) [Mass/Vol] 58 mg/dL High 15-45 [facility] Comment on above: Order Comment: Speci men Type: CEREBROSPINAL FLUIDOrdering Facility: [facility] Address: [address] [place] [address] Performed By: #### 2 342-4, 2880-3 ####[facility] LABORATORYCLIA [id number] [address] aPTT PPPon 07-27-2021 aPTT Coag (PPP) [Time] 68.4 s High 23.0-32.4 [place] Comment on above: Order Comment: Speci men Type: BLOOD SPECIMENOrdering Facility: [facility] Address: [address] [place] [address] Performed By: #### 1 4979-9 ####[facility] LABORATORYCLIA [id number] [address] aPTT Coag (PPP) [Time] 51.3 s High 23.0-32.4 [place] Comment on above: Order Comment: Speci men Type: BLOOD SPECIMENOrdering Facility: [facility] Address: [address] [place] [address] Performed By: #### 1 4979-9 ####[facility] LABORATORYCLIA [id number] [place] [id number] [facility] ALLIED HEALTHon 07-26-2021 ALLIED HEALTH HNO ID: [id number] Author: Stephanie Maldonado, inspector brake lining Service: Radiology Author Type: 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 Type: Allied Health Filed: 07/26/2021 4:10 PM Note Text: Spoke with nurse. Pt getting new EVD today. Try tomorrow. Normal [facility] Bacteria CSF Culton 07-27-19 Bacteria identified Cx Nom (CSF) Abnormal [facility] Comment on above: Performed By: #### 6 06-4 ####[facility] LABORATORYCLIA [id number] [address] STATES OF [facility] Basic metabolic 2000 panelon 07-26-2021 Anion gap [Moles/Vol] 6 mmol/L Low 9-18 [facility] Comment on above: Order Comment: Speci men Type: BLOOD SPECIMENOrdering Facility: [facility] Address: [address] [place] [address] Performed By: #### 2 4321-2 ####[facility] LABORATORYCLIA [id number] [place] [address] [place] Calcium [Mass/Vol] 9.2 mg/dL Normal 8.5-10.2 [facility] Comment on above: Order Comment: Speci men Type: BLOOD SPECIMENOrdering Facility: [facility] Address: [address] [place] [address] Performed By: #### 2 4321-2 ####[facility] LABORATORYCLIA [id number] [place] [address] [place] Chloride [Moles/Vol] 99 mmol/L Normal 97-105 [facility] Comment on above: Order Comment: Speci men Type: BLOOD SPECIMENOrdering Facility: [facility] Address: [address] [place] [address] Performed By: #### 2 4321-2 ####[facility] LABORATORYCLIA [id number] [place] [address] [place] CO2 [Moles/Vol] 32 mmol/L High 22-30 [facility] Comment on above: Order Comment: Speci men Type: BLOOD SPECIMENOrdering Facility: [facility] Address: [address] [address] Performed By: #### 2 4321-2 ####[facility] LABORATORYCLIA [id number] [place] [id number] [place] STATES OF [facility] Creatinine [Mass/Vol] 0.74 mg/dL Normal 0.73-1.22 [facility] Comment on above: Order Comment: Speci men Type: BLOOD SPECIMENOrdering Facility: [facility] Address: [address] [place] [place] [address] Performed By: #### 2 4321-2 ####[facility] LABORATORYCLIA [id number] [address] ESTIMATED GLOMERULAR FILTRATION RATE 98 mL/min/1.73m??? Normal >=60 [facility] Comment on above: Order Comment: Shira feldman Type: BLOOD SPECIMENOrdering Facility: [facility] Address: [address] [place] [address] Result Comment: Luzmaria mated Glomerular Filtration Rate [...] Performed By: #### 2 4321-2 ####[facility] LABORATORYCLIA [id number] [address] [place] Glucose [Mass/Vol] 126 mg/dL High 74-99 [facility] Comment on above: Order Comment: Speci francia Type: BLOOD SPECIMENOrdering Facility: [facility] Address: [address] [place] [address] Result Comment: The [place] Diabetes Association (ADA) provides guidance for cutoff [...] Standards of Medical Care in Diabetes 2016, [place] [employer] Association. Diabetes Care. 2016.39(Suppl 1). Performed By: #### 2 4321-2 ####[facility] LABORATORYCLIA [id number] [address] STATES OF [facility] Potassium [Moles/Vol] 4.2 mmol/L Normal 3.7-5.1 [facility] Comment on above: Order Comment: Speci men Type: BLOOD SPECIMENOrdering Facility: [facility] Address: [address] [place] [address] Performed By: #### 2 4321-2 ####[facility] LABORATORYCLIA [id number] [address] Sodium [Moles/Vol] 137 mmol/L Normal 136-144 [facility] Comment on above: Order Comment: Speci men Type: BLOOD SPECIMENOrdering Facility: [facility] Address: [address] [place] [address] Performed By: #### 2 4321-2 ####[facility] LABORATORYCLIA [id number] [address] STATES [facility] Urea nitrogen [Mass/Vol] 36 mg/dL High 9-24 [facility] Comment on above: Order Comment: Speci men Type: BLOOD SPECIMENOrdering Facility: [facility] Address: [address] [place] [place] [address] Performed By: #### 2 4321-2 ####[facility] LABORATORYCLIA [id number] [address] [place] CBC W Auto Differential pane l (Bld)on 07-26-2021 Basophils (Bld) [#/Vol] 0.04 10*3/uL Normal <0.11 [facility] Comment on above: Order Comment: Speci men Type: BLOOD SPECIMENOrdering Facility: [facility] Address: [address] [place] [address] Performed By: #### 5 7021-8 ####[facility]ORATORYCLIA [id number] [address] [place] Basophils/100 WBC (Bld) 0.4 % Normal [facility] Comment on above: Order Comment: Speci men Type: BLOOD SPECIMENOrdering Facility: [facility] Address: [address] [place] [address] Performed By: #### 5 7021-8 ####[facility] LABORATORYCLIA [id number] [address] [place] Differential cell count method Nom (Bld) Auto Normal [facility] Comment on above: Order Comment: Speci men Type: BLOOD SPECIMENOrdering Facility: [facility] Address: [address] [place] [address] Performed By: #### 5 7021-8 ####[facility] LABORATORYCLIA [id number] [address] [place] Eosinophils (Bld) [#/Vol] 0.63 10*3/uL High <0.46 [facility] Comment on above: Order Comment: Speci men Type: BLOOD SPECIMENOrdering Facility: [facility] Address: [address] [place] [address] Performed By: #### 5 7021-8 ####[facility] LABORATORYCLIA [id number] [address] [place] Eosinophils/100 WBC (Bld) 5.8 % Normal [facility] Comment on above: Order Comment: Speci men Type: BLOOD SPECIMENOrdering Facility: [facility] Address: [address] [place] [address] Performed By: #### 5 7021-8 ####[facility] LABORATORYCLIA [id number] [address] [place] Erythrocyte distribution width (RBC) [Ratio] 16.8 % High 11.5-15.0 [facility] Comment on above: Order Comment: Speci men Type: BLOOD SPECIMENOrdering Facility: [facility] Address: [address] [place] [address] Performed By: #### 5 7021-8 ####[facility] LABORATORYCLIA [id number] [address] Hematocrit (Bld) [Volume fraction] 31.2 % Low 39.0-51.0 [facility] Comment on above: Order Comment: Speci men Type: BLOOD SPECIMENOrdering Facility: [facility] Address: [address] [place] [address] Performed By: #### 5 7021-8 ####[facility] LABORATORYCLIA [id number] [address] Hemoglobin (Bld) [Mass/Vol] 9.1 g/dL Low 13.0-17.0 [facility] Comment on above: Order Comment: Speci men Type: BLOOD SPECIMENOrdering Facility: [facility] Address: [address] [place] [address] Performed By: #### 5 7021-8 ####[facility] LABORATORYCLIA [id number] [address] IMMATURE GRAN % 0.6 % Normal [facility] Comment on above: Order Comment: Speci men Type: BLOOD SPECIMENOrdering Facility: [facility] Address: [address] [place] [address] Performed By: #### 5 7021-8 ####[facility] LABORATORYCLIA [id number] [address] IMMATURE GRAN ABS 0.07 k/uL Normal <0.10 [facility] Comment on above: Order Comment: Speci men Type: BLOOD SPECIMENOrdering Facility: [facility] Address: [address] [place] [address] Performed By: #### 5 7021-8 ####[facility] LABORATORYCLIA [id number] [address] OF [facility] Lymphocytes (Bld) [#/Vol] 2.16 10*3/uL Normal 1.00-4.00 [facility] Comment on above: Order Comment: Speci men Type: BLOOD SPECIMENOrdering Facility: [facility] Address: [address] [place] [address] Performed By: #### 5 7021-8 ####[facility] LABORATORYCLIA [id number] [address] Lymphocytes/100 WBC (Bld) 20.0 % Normal [facility] Comment on above: Order Comment: Speci men Type: BLOOD SPECIMENOrdering Facility: [facility] Address: [address] [place] [address] Performed By: #### 5 7021-8 ####[facility] LABORATORYCLIA [id number] [address] [place] MCH (RBC) [Entitic mass] 27.7 pg Normal 26.0-34.0 [facility] Comment on above: Order Comment: Speci men Type: BLOOD SPECIMENOrdering Facility: [facility] Address: [address] [place] [address] Performed By: #### 5 7021-8 ####[facility] LABORATORYCLIA [id number] [address] STATES OF [facility] MCHC (RBC) [Mass/Vol] 29.2 g/dL Low 30.5-36.0 [facility] Comment on above: Order Comment: Speci men Type: BLOOD SPECIMENOrdering Facility: [facility] Address: [address] [place] [address] Performed By: #### 5 7021-8 ####[facility] LABORATORYCLIA [id number] [address] [place] MCV (RBC) [Entitic vol] 95.1 fL Normal 80.0-100.0 [facility] Comment on above: Order Comment: Speci men Type: BLOOD SPECIMENOrdering Facility: [facility] Address: [address] [place] [address] Performed By: #### 5 7021-8 ####[facility] LABORATORYCLIA [id number] [place] [address] [place] Monocytes (Bld) [#/Vol] 0.63 10*3/uL Normal <0.87 [facility] Comment on above: Order Comment: Speci men Type: BLOOD SPECIMENOrdering Facility: [facility] Address: [address] [place] [address] Performed By: #### 5 7021-8 ####[facility] LABORATORYCLIA [id number] [address] [place] Monocytes/100 WBC (Bld) 5.8 % Normal [facility] Comment on above: Order Comment: Speci men Type: BLOOD SPECIMENOrdering Facility: [facility] Address: [address] [place] [address] Performed By: #### 5 7021-8 ####[facility] LABORATORYCLIA [id number] [address] [place] Neutrophils (Bld) [#/Vol] 7.25 10*3/uL Normal 1.45-7.50 [facility] Comment on above: Order Comment: Speci men Type: BLOOD SPECIMENOrdering Facility: [facility] Address: [address] [place] [address] Performed By: #### 5 7021-8 ####[facility]ORATORYCLIA [id number] [address] [place] Neutrophils/100 WBC (Bld) 67.4 % Normal [facility] Comment on above: Order Comment: Speci men Type: BLOOD SPECIMENOrdering Facility: [facility] Address: [address] [place] [address] Performed By: #### 5 7021-8 ####[facility] LABORATORYCLIA [id number] [place] [address] [place] Nucleated RBC (Bld) [#/Vol] 10*3/uL Normal <0.01 [facility] Comment on above: Order Comment: Speci men Type: BLOOD SPECIMENOrdering Facility: [facility] Address: [address] [place] [address] Performed By: #### 5 7021-8 ####[facility] LABORATORYCLIA [id number] [address] [place] Nucleated RBC/100 WBC (Bld) [Ratio] 0.0 /100 WBC Normal [facility] Comment on above: Order Comment: Speci men Type: BLOOD SPECIMENOrdering Facility: [facility] Address: [address] [place] [address] Performed By: #### 5 7021-8 ####[facility] LABORATORYCLIA [id number] [address] [place] Platelet mean volume (Bld) [Entitic vol] 11.2 fL Normal 9.0-12.7 [facility] Comment on above: Order Comment: Speci men Type: BLOOD SPECIMENOrdering Facility: [facility] Address: [address] [place] [address] Performed By: #### 5 7021-8 ####[facility] LABORATORYCLIA [id number] [address] [place] Platelets (Bld) [#/Vol] 245 10*3/uL Normal 150-400 [facility] Comment on above: Order Comment: Speci men Type: BLOOD SPECIMENOrdering Facility: [facility] Address: [address] [place] [address] Performed By: #### 5 7021-8 ####[facility] LABORATORYCLIA [id number] [address] [place] RBC (Bld) [#/Vol] 3.28 10*6/uL Low 4.20-6.00 [facility] Comment on above: Order Comment: Speci men Type: BLOOD SPECIMENOrdering Facility: [facility] Address: [address] [place] [address] Performed By: #### 5 7021-8 ####[facility] LABORATORYCLIA [id number] [address] [place] WBC (Bld) [#/Vol] 10.78 10*3/uL Normal 3.70-11.00 [facility] Comment on above: Order Comment: Speci men Type: BLOOD SPECIMENOrdering Facility: [facility] Address: [address] [place] [address] Performed By: #### 5 7021-8 ####[facility] LABORATORYCLIA [id number] [address] OF [facility] CSF MANUAL DIFFon 07-26-2021 DIF TTL, CSF 100 cells counted Normal [facility] Comment on above: Order Comment: Speci men Type: CEREBROSPINAL FLUIDOrdering Facility: [facility] Address: [address] [place] [address] Performed By: #### 3 4563-7, [id number], [id number] ####[facility] LABORATORYCLIA [id number] [place] [address] [place] LYMPH%, CSF 26 % Low 50-90 [facility] Comment on above: Order Comment: Speci men Type: CEREBROSPINAL FLUIDOrdering Facility: [facility] Address: [address] [place] [address] Performed By: #### 3 4563-7, [id number], [id number] ####[facility] LABORATORYCLIA [id number] [place] [address] [place] MACRO%, CSF 10 % High <1 [facility] Comment on above: Order Comment: Speci men Type: CEREBROSPINAL FLUIDOrdering Facility: [facility] Address: [address] [place] [address] Performed By: #### 3 4563-7, [id number], [id number] ####[facility]ORATORYCLIA [id number] [address] [place] MONO%, CSF 20 % Normal 10-50 [facility] Comment on above: Order Comment: Speci men Type: CEREBROSPINAL FLUIDOrdering Facility: [facility] Address: [address] [place] [address] Performed By: #### 3 4563-7, [id number], [id number] ####[facility] LABORATORYCLIA [id number] [place] [address] [place] NEUT%, CSF 40 % High 0-3 [facility] Comment on above: Order Comment: Speci men Type: CEREBROSPINAL FLUIDOrdering Facility: [facility] Address: [address] [place] [address] Performed By: #### 3 4563-7, [id number], [id number] ####[facility] LABORATORYCLIA [id number] [address] [place] OTHER CL%, CSF 2 % Normal [facility] Comment on above: Order Comment: Speci men Type: CEREBROSPINAL FLUIDOrdering Facility: [facility] Address: [address] [place] [address] Result Comment: Path review to follow. Performed By: #### 3 4563-7, [id number], [id number] ####[facility] LABORATORYCLIA [id number] [address] REAC LYMPH %, CSF 2 % Normal [facility] Comment on above: Order Comment: Speci men Type: CEREBROSPINAL FLUIDOrdering Facility: [facility] Address: [address] [place] [address] Performed By: #### 3 4563-7, [id number], [id number] ####[facility] LABORATORYCLIA [id number] [address] CSF PATHOLOGIST INTERP (LAB REFLEX ORDER-NO BILL)on 07-26-2021 CSF STAFF REVIEW Negative for maligna nt cells. Rare bacteria present, cocci in pairs and chains. Correlation with CSF cultures is recommended. Normal [facility] Comment on above: Order Comment: Speci men Type: CEREBROSPINAL FLUIDOrdering Facility: [facility] Address: [address] [place] [address] Performed By: #### 3 4563-7, [id number], [id number] ####[facility]ORATORYCLIA [id number] [address] Pathologist name Reviewed by Amador Stevens MD Normal [facility] Comment on above: Order Comment: Speci men Type: CEREBROSPINAL FLUIDOrdering Facility: [facility] Address: [facility] [place] [address] Performed By: #### 3 4563-7, [id number], [id number] ####[facility]ORATORYCLIA [id number] [address] Cell count panel (CSF)on Clarity (CSF) Slightly Cloudy Abnormal Clear [facility] Comment on above: Order Comment: Speci men Type: CEREBROSPINAL FLUIDOrdering Facility: [facility] Address: [address] [place] [address] Performed By: #### 3 4563-7, [id number], [id number] ####[facility]ATORYCLIA [id number] [address] Clarity (Unsp spec) Clear Normal Clear [facility] Comment on above: Order Comment: Speci men Type: CEREBROSPINAL FLUIDOrdering Facility: [facility] Address: [address] [place] [address] Performed By: #### 3 4563-7, [id number], [id number] ####[facility] LABORATORYCLIA [id number] [address] Color (CSF) Colorless Normal Colorless [facility] Comment on above: Order Comment: Speci men Type: CEREBROSPINAL FLUIDOrdering Facility: [facility] Address: [address] [address] Performed By: #### 3 4563-7, [id number], [id number] ####[facility] LABORATORYCLIA [id number] [address] [place] Color (Spun CSF) Not Indicated Normal Colorless [facility] Comment on above: Order Comment: Speci men Type: CEREBROSPINAL FLUIDOrdering Facility: [facility] Address: [address] [address] Performed By: #### 3 4563-7, [id number], [id number] ####[facility]ORATORYCLIA [id number] [address] CSF TUBE NUMBER [employer] Normal [place] Comment on above: Order Comment: Speci men Type: CEREBROSPINAL FLUIDOrdering Facility: [facility] Address: [address] [place] [address] Performed By: #### 3 4563-7, [id number], [id number] ####[facility]ORATORYCLIA [id number] [address] RBC Manual cnt (CSF) [#/Vol] 1 cells/uL Normal 0-5 [facility] Comment on above: Order Comment: Speci men Type: CEREBROSPINAL FLUIDOrdering Facility: [facility] Address: [address] [place] [address] Performed By: #### 3 4563-7, [id number], [id number] ####[facility]ATORYCLIA [id number] [address] WBC Manual cnt (CSF) [#/Vol] 50 cells/uL High 0-5 [facility] Comment on above: Order Comment: Speci men Type: CEREBROSPINAL FLUIDOrdering Facility: [facility] Address: [address] [place] [address] Performed By: #### 3 4563-7, [id number], [id number] ####[facility]ORATORYCLIA [id number] [address] [place] Glucose CSF-mCncon 2 Glucose (CSF) [Mass/Vol] 64 mg/dL Normal 40-70 [facility] Comment on above: Order Comment: Speci men Type: CEREBROSPINAL FLUIDOrdering Facility: [facility] Address: [address] [place] [address] Result Comment: Lumb ar CSF glucose values of healthy patients are approximately 60% of the plasma values and must always be compared with a concurrently measured plasma value for adequate clinical interpretation.References: 1. Glucose HK (GLUC3) [package insert V 12.0 Citizen Of [place]]. [employer] [facility], [place], [place]. September 2015. 2. Michelle Moore, Michelle Manjarrez (2015). Chapter 7: Glucose and Lactate. F. Irina rose al.(eds.), Cerebrospinal Fluid in Clinical Neurology. [place]: [employer]. Performed By: #### 2 880-3, 2342-4 ####[facility] LABORATORYCLIA [id number] [address] Magnesium SerPl-mCncon 07-26 Magnesium [Mass/Vol] 2.3 mg/dL Normal 1.7-2.3 [facility] Comment on above: Order Comment: Speci men Type: BLOOD SPECIMENOrdering Facility: [facility] Address: [address] [place] [address] Performed By: #### 1 9123-9, 2777-1, 6-3 ####[facility] LABORATORYCLIA [id number] [address] NURSING PROGon 07-26-2021 NURSING PROG Normal [facility] Center Phosphate SerPl-mCncon 07-26 Phosphate [Mass/Vol] 2.6 mg/dL Low 2.7-4.8 [facility] Comment on above: Order Comment: Speci men Type: BLOOD SPECIMENOrdering Facility: [facility] Address: [address] [place] [address] Performed By: #### 1 9123-9, 2777-1, 6-3 ####[facility] LABORATORYCLIA [id number] [address] Prot CSF-mCncon 07-26-2021 Protein (CSF) [Mass/Vol] 64 mg/dL High 15-45 [facility] Comment on above: Order Comment: Speci men Type: CEREBROSPINAL FLUIDOrdering Facility: [facility] Address: [address] [place] [address] Performed By: #### 2 880-3, 2341-4 ####[facility] LABORATORYCLIA [id number] [address] THERAPY NTon 07-26-2021 THERAPY NT Normal [facility] TSH SerPl-aCncon 07-26-2021 TSH Qn 1.470 m[IU]/L Normal 0.270-4.200 [facility] Comment on above: Order Comment: Speci men Type: BLOOD SPECIMENOrdering Facility: [facility] Address: [address] [place] [address] Performed By: #### 1 9123-9, 2777-1, 3016-3 ####[facility] LABORATORYCLIA [id number] [address] VITAMIN B12 BLOODon 07-27-19 Cobalamin (Vitamin B12) [Mass/Vol] 934 pg/mL Normal 232-1,245 [facility] Comment on above: Order Comment: Speci men Type: BLOOD SPECIMENOrdering Facility: [facility] Address: [address] [place] [address] Performed By: #### B 12 ####[facility] LABORATORYCLIA [id number] [address] aPTT PPPon 07-26-2021 aPTT Coag (PPP) [Time] 53.6 s High 23.0-32.4 [place] Comment on above: Order Comment: Speci men Type: BLOOD SPECIMENOrdering Facility: [facility] Address: [address] [place] [address] Performed By: #### 1 4979-9 ####[facility]ORATORYCLIA [id number] [address] OF [facility] aPTT Coag (PPP) [Time] 44.9 s High 23.0-32.[address] [place] Comment on above: Order Comment: Speci men Type: BLOOD SPECIMENOrdering Facility: [facility] Address: [address] [place] [address] Performed By: #### 1 4979-9 ####[facility] LABORATORYCLIA [id number] [address] [place] ALLIED HEALTHon 07-25-2021 ALLIED HEALTH HNO ID: [id number] Author: Shannon Bess RT(R) Service: Radiology Author Type: Technologist Type: Allied Health Filed: 07/25/2021 1:37 PM Note Text: Called floor for MRI screening form [id number] Normal [facility] Bacteria Bld Culton 07-26-19 Bacteria identified Cx Nom (Bld) CULTURE, BLOOD: No growth 5 days Normal [facility] Comment on above: Performed By: #### 6 00-7 ####[facility] LABORATORYCLIA [id number] [address] STATES OF [facility] Bacteria identified Cx Nom (Bld) CULTURE, BLOOD: No growth 5 days Normal [facility] Comment on above: Performed By: #### 6 00-7 ####[facility] LABORATORYCLIA [id number] [address] [place] CASE MANAGEMon 07-25-2021 CASE MANAGEM Normal [facility] CBC W Auto Differential pane l (Bld)on 07-25-2021 Basophils (Bld) [#/Vol] 0.06 10*3/uL Normal <0.11 [facility] Comment on above: Order Comment: Speci men Type: BLOOD SPECIMENOrdering Facility: [facility] Address: [address] [place] [address] Performed By: #### 5 7021-8 ####[facility] LABORATORYCLIA [id number] [address] [place] Basophils/100 WBC (Bld) 0.6 % Normal [facility] Comment on above: Order Comment: Speci men Type: BLOOD SPECIMENOrdering Facility: [facility] Address: [address] [place] [address] Performed By: #### 5 7021-8 ####[facility]ORATORYCLIA [id number] [address] [place] Differential cell count method Nom (Bld) Auto Normal [facility] Comment on above: Order Comment: Speci men Type: BLOOD SPECIMENOrdering Facility: [facility] Address: [address] [address] Performed By: #### 5 7021-8 ####[facility] LABORATORYCLIA [id number] [address] [place] Eosinophils (Bld) [#/Vol] 0.26 10*3/uL Normal <0.46 [facility] Comment on above: Order Comment: Speci men Type: BLOOD SPECIMENOrdering Facility: [facility] Address: [address] [place] [address] Performed By: #### 5 7021-8 ####[facility]ORATORYCLIA [id number] [address] Eosinophils/100 WBC (Bld) 2.5 % Normal [facility] Comment on above: Order Comment: Speci men Type: BLOOD SPECIMENOrdering Facility: [facility] Address: [address] [place] [address] Performed By: #### 5 7021-8 ####[facility]ORATORYCLIA [id number] [address] Erythrocyte distribution width (RBC) [Ratio] 16.9 % High 11.5-15.0 [facility] Comment on above: Order Comment: Speci men Type: BLOOD SPECIMENOrdering Facility: [facility] Address: [address] [place] [address] Performed By: #### 5 7021-8 ####[facility]ORATORYCLIA [id number] [address] Hematocrit (Bld) [Volume fraction] 29.6 % Low 39.0-51.0 [facility] Comment on above: Order Comment: Speci men Type: BLOOD SPECIMENOrdering Facility: [facility] Address: [address] [place] [address] Performed By: #### 5 7021-8 ####[facility]ORATORYCLIA [id number] [address] [place] Hemoglobin (Bld) [Mass/Vol] 8.8 g/dL Low 13.0-17.0 [facility] Comment on above: Order Comment: Speci men Type: BLOOD SPECIMENOrdering Facility: [facility] Address: [address] [place] [address] Performed By: #### 5 7021-8 ####[facility]ORATORYCLIA [id number] [address] IMMATURE GRAN % 0.6 % Normal [facility] Comment on above: Order Comment: Speci men Type: BLOOD SPECIMENOrdering Facility: [facility] Address: [address] [place] [address] Performed By: #### 5 7021-8 ####[facility]ORATORYCLIA [id number] [address] IMMATURE GRAN ABS 0.06 k/uL Normal <0.10 [facility] Comment on above: Order Comment: Speci men Type: BLOOD SPECIMENOrdering Facility: [facility] Address: [address] [place] [address] Performed By: #### 5 7021-8 ####[facility]ORATORYCLIA [id number] [address] Lymphocytes (Bld) [#/Vol] 2.15 10*3/uL Normal 1.00-4.00 [facility] Comment on above: Order Comment: Speci men Type: BLOOD SPECIMENOrdering Facility: [facility] Address: [address] [place] [address] Performed By: #### 5 7021-8 ####[facility]ORATORYCLIA [id number] [address] Lymphocytes/100 WBC (Bld) 20.7 % Normal [facility] Comment on above: Order Comment: Speci men Type: BLOOD SPECIMENOrdering Facility: [facility] Address: [address] [place] [address] Performed By: #### 5 7021-8 ####[facility]ATORYCLIA [id number] [address] MCH (RBC) [Entitic mass] 28.2 pg Normal 26.0-34.0 [facility] Comment on above: Order Comment: Speci men Type: BLOOD SPECIMENOrdering Facility: [facility] Address: [address] [place] [address] Performed By: #### 5 7021-8 ####[facility]ORATORYCLIA [id number] [address] MCHC (RBC) [Mass/Vol] 29.7 g/dL Low 30.5-36.0 [facility] Comment on above: Order Comment: Speci men Type: BLOOD SPECIMENOrdering Facility: [facility] Address: [address] [place] [address] Performed By: #### 5 7021-8 ####[facility]ORATORYCLIA [id number] [address] MCV (RBC) [Entitic vol] 94.9 fL Normal 80.0-100.0 [facility] Comment on above: Order Comment: Speci men Type: BLOOD SPECIMENOrdering Facility: [facility] Address: [address] [place] [address] Performed By: #### 5 7021-8 ####[facility]ORATORYCLIA [id number] [address] Monocytes (Bld) [#/Vol] 0.62 10*3/uL Normal <0.87 [facility] Comment on above: Order Comment: Speci men Type: BLOOD SPECIMENOrdering Facility: [facility] Address: [address] [place] [address] Performed By: #### 5 7021-8 ####[facility]ORATORYCLIA [id number] [address] Monocytes/100 WBC (Bld) 6.0 % Normal [facility] Comment on above: Order Comment: Speci men Type: BLOOD SPECIMENOrdering Facility: [facility] Address: [address] [place] [address] Performed By: #### 5 7021-8 ####[facility]ATORYCLIA [id number] [address] [place] Neutrophils (Bld) [#/Vol] 7.25 10*3/uL Normal 1.45-7.50 [facility] Comment on above: Order Comment: Speci men Type: BLOOD SPECIMENOrdering Facility: [facility] Address: [address] [place] [address] Performed By: #### 5 7021-8 ####[facility]ORATORYCLIA [id number] [address] [place] Neutrophils/100 WBC (Bld) 69.6 % Normal [facility] Comment on above: Order Comment: Speci men Type: BLOOD SPECIMENOrdering Facility: [facility] Address: [address] [place] [address] Performed By: #### 5 7021-8 ####[facility]ATORYCLIA [id number] [address] Nucleated RBC (Bld) [#/Vol] 10*3/uL Normal <0.01 [facility] Comment on above: Order Comment: Speci men Type: BLOOD SPECIMENOrdering Facility: [facility] Address: [address] [place] [address] Performed By: #### 5 7021-8 ####[facility]ORATORYCLIA [id number] [address] [place] Nucleated RBC/100 WBC (Bld) [Ratio] 0.0 /100 WBC Normal [facility] Comment on above: Order Comment: Speci men Type: BLOOD SPECIMENOrdering Facility: [facility] Address: [address] [place] [address] Performed By: #### 5 7021-8 ####[facility]ORATORYCLIA [id number] [address] [place] Platelet mean volume (Bld) [Entitic vol] 11.3 fL Normal 9.0-12.7 [facility] Comment on above: Order Comment: Speci men Type: BLOOD SPECIMENOrdering Facility: [facility] Address: [address] [place] [address] Performed By: #### 5 7021-8 ####[facility]ORATORYCLIA [id number] [address] STATES OF [facility] Platelets (Bld) [#/Vol] 243 10*3/uL Normal 150-400 [facility] Comment on above: Order Comment: Speci men Type: BLOOD SPECIMENOrdering Facility: [facility] Address: [address] [place] [address] Performed By: #### 5 7021-8 ####[facility] LABORATORYCLIA [id number] [place] [address] [place] RBC (Bld) [#/Vol] 3.12 10*6/uL Low 4.20-6.00 [facility] Comment on above: Order Comment: Speci men Type: BLOOD SPECIMENOrdering Facility: [facility] Address: [address] [place] [address] Performed By: #### 5 7021-8 ####[facility]ORATORYCLIA [id number] [address] [place] WBC (Bld) [#/Vol] 10.40 10*3/uL Normal 3.70-11.00 [facility] Comment on above: Order Comment: Speci men Type: BLOOD SPECIMENOrdering Facility: [facility] Address: [address] [place] [address] Performed By: #### 5 7021-8 ####[facility]ORATORYCLIA [id number] [address] OF [facility] CONSULT PROGon 07-25-2021 CONSULT PROG Normal [facility] MYCOPLASMA PNEUM IGMon 07-25 M. PNEUMO IGM, QUAL Negative Normal Negative [facility] Comment on above: Order Comment: Speci men Type: BLOOD SPECIMENOrdering Facility: [facility] Address: [address] [place] [address] Result Comment: Myco plasma pneumoniae IgM antibody test is used as an aid in diagnosis of recent infection with M. pneumoniae. It may occasionally remain elevated for extended periods after an acute infection. Cannot exclude recent infection if the specimen collected 7-10 days after onset of signs and symptoms. Clinical correlation is required. Performed By: #### M YCOPM ####[facility] LABCLIA [id number] [facility] MEDICAL CENTERDESK [id number] [place] NURSING PROGon 07-25-2021 NURSING PROG Normal [facility] THERAPY NTon 07-25-2021 THERAPY NT Normal [facility] THERAPY NT Normal [facility] aPTT PPPon 07-25-2021 aPTT Coag (PPP) [Time] 62.6 s High 23.0-32.4 [place] Comment on above: Order Comment: Speci men Type: BLOOD SPECIMENOrdering Facility: [facility] Address: [address] [address] Performed By: #### 1 4979-9 ####[facility] LABORATORYCLIA [id number] [address] [place] Bacteria Ur Culton Bacteria identified Cx Nom (U) CULTURE, URINE: No growth (<100 CFU/ml) Normal [facility] Comment on above: Performed By: #### 6 30-4 ####[facility] LABORATORYCLIA [id number] [place] [address] [place] Basic metabolic 2000 panelon 07-24-2021 Anion gap [Moles/Vol] 13 mmol/L Normal 9-18 [facility] Comment on above: Order Comment: Speci men Type: BLOOD SPECIMENOrdering Facility: [facility] Address: [address] [address] Performed By: #### 1 9123-9, PROCAL, 2777-1, 30800-1 ####[facility] LABORATORYCLIA [id number] [place] [address] [place] Calcium [Mass/Vol] 9.5 mg/dL Normal 8.5-10.2 [facility] Comment on above: Order Comment: Speci men Type: BLOOD SPECIMENOrdering Facility: [facility] Address: [address] [place] [address] Performed By: #### 1 9123-9, PROCAL, 2776-05, 76841-3 ####[facility]ORATORYCLIA [id number] [address] STATES OF [facility] Chloride [Moles/Vol] 102 mmol/L Normal 97-105 [facility] Comment on above: Order Comment: Speci men Type: BLOOD SPECIMENOrdering Facility: [facility] Address: [address] [place] [address] Performed By: #### 1 9123-9, PROCAL, 2776-05, 82818-2 ####[facility]PITALCLIA [id number] [address] STATES OF [facility] CO2 [Moles/Vol] 28 mmol/L Normal 22-30 [facility] Comment on above: Order Comment: Speci men Type: BLOOD SPECIMENOrdering Facility: [facility] Address: [address] [place] [address] Performed By: #### 1 9123-9, PROCAL, 2776-05, 09832-1 ####[facility]ORATORYCLIA [id number] [address] STATES [place] [facility] Creatinine [Mass/Vol] 0.86 mg/dL Normal 0.73-1.22 [facility] Comment on above: Order Comment: Speci men Type: BLOOD SPECIMENOrdering Facility: [facility] Address: [address] [place] [address] Performed By: #### 1 9123-9, PROCAL, 2776-05, 55985-9 ####[facility] LABORATORYCLIA [id number] [address] ESTIMATED GLOMERULAR FILTRATION RATE 94 mL/min/1.73m??? Normal >=60 [facility] Comment on above: Order Comment: Speci men Type: BLOOD SPECIMENOrdering Facility: [facility] Address: [address] [id number] Result Comment: Luzmaria mated Glomerular Filtration Rate [...] Performed By: #### 1 9123-9, PROCCARLITOS, 2777-1, 16138-5 ####[facility] LABORATORYCLIA [id number] [place] [address] [place] Glucose [Mass/Vol] 148 mg/dL High 74-99 [facility] Comment on above: Order Comment: Speci men Type: BLOOD SPECIMENOrdering Facility: [facility] Address: [address] [address] Result Comment: The [place] [employer] (ADA) provides guidance for cutoff [...] Standards of Medical Care in Diabetes 2016, [place] [employer]. Diabetes Care. 2016.39(Suppl 1). Performed By: #### 1 9123-9, PROCAL, 2777-1, 17271-4 ####[facility] LABORATORYCLIA [id number] [place] [address] [place] Potassium [Moles/Vol] 4.0 mmol/L Normal 3.7-5.1 [facility] Comment on above: Order Comment: Speccara men Type: BLOOD SPECIMENOrdering Facility: [facility] Address: [address] [phone] Performed By: #### 1 9123-9, PROCAL, 2776-05, 51281-8 ####[facility] LABORATORYCLIA [id number] [address] STATES [facility] Sodium [Moles/Vol] 143 mmol/L Normal 136-144 [facility] Comment on above: Order Comment: Speci men Type: BLOOD SPECIMENOrdering Facility: [facility] Address: [address] [place] [address] Performed By: #### 1 9123-9, PROCAL, 2776-, 52112-4 ####[facility] LABORATORYCLIA [id number] [address] STATES [facility] Urea nitrogen [Mass/Vol] 38 mg/dL High 9-24 [facility] Comment on above: Order Comment: Speci men Type: BLOOD SPECIMENOrdering Facility: [facility] Address: [address] [place] [address] Performed By: #### 1 9123-9, [facility], 2776-05, 46026-2 ####[facility] LABORATORYCLIA [id number] [address] STATES [facility] CBC W Auto Differential pane l (Bld)on 07-24-2021 Basophils (Bld) [#/Vol] 0.06 10*3/uL Normal <0.11 [facility] Comment on above: Order Comment: Speci men Type: BLOOD SPECIMENOrdering Facility: [facility] Address: [address] [place] [address] Performed By: #### 5 7021-8 ####[facility] LABORATORYCLIA [id number] [address] Basophils/100 WBC (Bld) 0.6 % Normal [facility] Comment on above: Order Comment: Speci men Type: BLOOD SPECIMENOrdering Facility: [facility] Address: [address] [place] [address] Performed By: #### 5 7021-8 ####[facility]ORATORYCLIA [id number] [address] Differential cell count method Nom (Bld) Auto Normal [facility] Comment on above: Order Comment: Speci men Type: BLOOD SPECIMENOrdering Facility: [facility] Address: [address] [place] [address] Performed By: #### 5 7021-8 ####[facility]ORATORYCLIA [id number] [address] Eosinophils (Bld) [#/Vol] 0.03 10*3/uL Normal <0.46 [facility] Comment on above: Order Comment: Speci men Type: BLOOD SPECIMENOrdering Facility: [facility] Address: [address] [place] [address] Performed By: #### 5 7021-8 ####[facility] LABORATORYCLIA [id number] [address] Eosinophils/100 WBC (Bld) 0.3 % Normal [facility] Comment on above: Order Comment: Speci men Type: BLOOD SPECIMENOrdering Facility: [facility] Address: [address] [place] [address] Performed By: #### 5 7021-8 ####[facility] LABORATORYCLIA [id number] [address] Erythrocyte distribution width (RBC) [Ratio] 17.0 % High 11.5-15.0 [facility] Comment on above: Order Comment: Speci men Type: BLOOD SPECIMENOrdering Facility: [facility] Address: [address] [place] [address] Performed By: #### 5 7021-8 ####[facility] LABORATORYCLIA [id number] [address] Hematocrit (Bld) [Volume fraction] 30.5 % Low 39.0-51.0 [facility] Comment on above: Order Comment: Speci men Type: BLOOD SPECIMENOrdering Facility: [facility] Address: [address] [place] [address] Performed By: #### 5 7021-8 ####[facility] LABORATORYCLIA [id number] [address] [place] Hemoglobin (Bld) [Mass/Vol] 9.0 g/dL Low 13.0-17.0 [facility] Comment on above: Order Comment: Speci men Type: BLOOD SPECIMENOrdering Facility: [facility] Address: [address] [place] [address] Performed By: #### 5 7021-8 ####[facility] LABORATORYCLIA [id number] [address] OF [facility] IMMATURE GRAN % 0.5 % Normal [facility] Comment on above: Order Comment: Speci men Type: BLOOD SPECIMENOrdering Facility: [facility] Address: [address] [place] [address] Performed By: #### 5 7021-8 ####[facility] LABORATORYCLIA [id number] [address] IMMATURE GRAN ABS 0.05 k/uL Normal <0.10 [facility] Comment on above: Order Comment: Speci men Type: BLOOD SPECIMENOrdering Facility: [facility] Address: [address] [place] [address] Performed By: #### 5 7021-8 ####[facility] LABORATORYCLIA [id number] [address] [place] Lymphocytes (Bld) [#/Vol] 1.68 10*3/uL Normal 1.00-4.00 [facility] Comment on above: Order Comment: Speci men Type: BLOOD SPECIMENOrdering Facility: [facility] Address: [address] [place] [address] Performed By: #### 5 7021-8 ####[facility]ORATORYCLIA [id number] [address] Lymphocytes/100 WBC (Bld) 16.2 % Normal [facility] Comment on above: Order Comment: Speci men Type: BLOOD SPECIMENOrdering Facility: [facility] Address: [address] [place] [address] Performed By: #### 5 7021-8 ####[facility] LABORATORYCLIA [id number] [address] MCH (RBC) [Entitic mass] 27.4 pg Normal 26.0-34.0 [facility] Comment on above: Order Comment: Speci men Type: BLOOD SPECIMENOrdering Facility: [facility] Address: [address] [place] [address] Performed By: #### 5 7021-8 ####[facility] LABORATORYCLIA [id number] [address] [facility] MCHC (RBC) [Mass/Vol] 29.5 g/dL Low 30.5-36.0 [facility] Comment on above: Order Comment: Speci men Type: BLOOD SPECIMENOrdering Facility: [facility] Address: [address] [place] [address] Performed By: #### 5 7021-8 ####[facility] LABORATORYCLIA [id number] [address] MCV (RBC) [Entitic vol] 93.0 fL Normal 80.0-100.0 [facility] Comment on above: Order Comment: Speci men Type: BLOOD SPECIMENOrdering Facility: [facility] Address: [address] [place] [address] Performed By: #### 5 7021-8 ####[facility] LABORATORYCLIA [id number] [address] Monocytes (Bld) [#/Vol] 0.63 10*3/uL Normal <0.87 [facility] Center Comment on above: Order Comment: Speci men Type: BLOOD SPECIMENOrdering Facility: [facility] Address: [address] [place] [address] Performed By: #### 5 7021-8 ####[facility] LABORATORYCLIA [id number] [address] Monocytes/100 WBC (Bld) 6.1 % Normal [facility] Comment on above: Order Comment: Speci men Type: BLOOD SPECIMENOrdering Facility: [facility] Address: [address] [place] [address] Performed By: #### 5 7021-8 ####[facility] LABORATORYCLIA [id number] [address] [place] Neutrophils (Bld) [#/Vol] 7.91 10*3/uL High 1.45-7.50 [facility] Comment on above: Order Comment: Speci men Type: BLOOD SPECIMENOrdering Facility: [facility] Address: [address] [place] [address] Performed By: #### 5 7021-8 ####[facility] LABORATORYCLIA [id number] [address] [place] Neutrophils/100 WBC (Bld) 76.3 % Normal [facility] Comment on above: Order Comment: Speci men Type: BLOOD SPECIMENOrdering Facility: [facility] Address: [address] [place] [address] Performed By: #### 5 7021-8 ####[facility] LABORATORYCLIA [id number] [address] [place] Nucleated RBC (Bld) [#/Vol] 10*3/uL Normal <0.01 [facility] Comment on above: Order Comment: Speci men Type: BLOOD SPECIMENOrdering Facility: [facility] Address: [address] [place] [address] Performed By: #### 5 7021-8 ####[facility]ATORYCLIA [id number] [address] [place] Nucleated RBC/100 WBC (Bld) [Ratio] 0.0 /100 WBC Normal [facility] Comment on above: Order Comment: Speci men Type: BLOOD SPECIMENOrdering Facility: [facility] Address: [address] [place] [address] Performed By: #### 5 7021-8 ####[facility]ATORYCLIA [id number] [address] [place] Platelet mean volume (Bld) [Entitic vol] 11.1 fL Normal 9.0-12.7 [facility] Comment on above: Order Comment: Speci men Type: BLOOD SPECIMENOrdering Facility: [facility] Address: [address] [place] [address] Performed By: #### 5 7021-8 ####[facility] LABORATORYCLIA [id number] [place] [address] [place] Platelets (Bld) [#/Vol] 285 10*3/uL Normal 150-400 [facility] Comment on above: Order Comment: Speci men Type: BLOOD SPECIMENOrdering Facility: [facility] Address: [address] [place] [address] Performed By: #### 5 7021-8 ####[facility] LABORATORYCLIA [id number] [place] [address] [place] RBC (Bld) [#/Vol] 3.28 10*6/uL Low 4.20-6.00 [facility] Comment on above: Order Comment: Speci men Type: BLOOD SPECIMENOrdering Facility: [facility] Address: [address] [place] [address] Performed By: #### 5 7021-8 ####[facility] LABORATORYCLIA [id number] [place] [address] [place] WBC (Bld) [#/Vol] 10.36 10*3/uL Normal 3.70-11.00 [facility] Comment on above: Order Comment: Speci men Type: BLOOD SPECIMENOrdering Facility: [facility] Address: [address] [place] [address] Performed By: #### 5 7021-8 ####[facility] LABORATORYCLIA [id number] [address] [place] Legionella Ag Ur Qlon 2021 Legionella sp Ag Ql (U) Negative Normal Negative [facility] Comment on above: Order Comment: Speci men Type: URINE SPECIMENOrdering Facility: [facility] Address: [address] [place] [address] Performed By: #### 3 2781-7 ####[facility] LABORATORYCLIA [id number] [address] [place] Magnesium SerPl-mCncon 07-24 Magnesium [Mass/Vol] 2.3 mg/dL Normal 1.7-2.3 [facility] Comment on above: Order Comment: Speci men Type: BLOOD SPECIMENOrdering Facility: [facility] Address: [address] [place] [address] Performed By: #### 1 9123-9, KATIE, 2776-05, 99916-1 ####[facility] LABORATORYCLIA [id number] [address] OF [facility] NURSING PROGon 07-24-2021 NURSING PROG Normal [facility] PROCALCITONIN (LAB)on 2021 Procalcitonin [Mass/Vol] 0.15 ng/mL High <0.09 [facility] Comment on above: Order Comment: Speci men Type: BLOOD SPECIMENOrdering Facility: [facility] Address: [address] [place] [address] Result Comment: For a guided interpretation of test results, please visit the Change in Procalcitonin Calculator, [email or web address]. Performed By: #### 1 9123-9, KATIE, 2776-05, 77836-8 ####[facility] LABORATORYCLIA [id number] [address] [place] Phosphate SerPl-mCncon 07-24 Phosphate [Mass/Vol] 3.9 mg/dL Normal 2.7-4.8 [facility] Comment on above: Order Comment: Speci men Type: BLOOD SPECIMENOrdering Facility: [facility] Address: [address] [place] [address] Performed By: #### 1 9123-9, KATIE, 2776-, 73496-8 ####[facility] LABORATORYCLIA [id number] [address] STREPTOCOCCUS PNEUMONIAE AGo n 07-24-2021 STREPTOCOCCUS PNEUMONIAE AG Normal [facility] Comment on above: Performed By: #### S PNAG ####[facility] LABORATORYCLIA [id number] [address] OF [facility] aPTT PPPon 07-24-2021 aPTT Coag (PPP) [Time] 60.8 s High 23.0-32.[address] [place] Comment on above: Order Comment: Speci men Type: BLOOD SPECIMENOrdering Facility: [facility] Address: [address] [place] [address] Performed By: #### 1 4979-9 ####[facility]ORATORYCLIA [id number] [address] aPTT Coag (PPP) [Time] 38.2 s High 23.0-32.[address] [place] Comment on above: Order Comment: Speci men Type: BLOOD SPECIMENOrdering Facility: [facility] Address: [address] [place] [address] Performed By: #### 1 4979-9 ####[facility] LABORATORYCLIA [id number] [address] aPTT Coag (PPP) [Time] 35.9 s High 23.0-32.[address] [place] Comment on above: Order Comment: Speci men Type: BLOOD SPECIMENOrdering Facility: [facility] Address: [address] [place] [address] Performed By: #### 1 4979-9 ####[facility]ORATORYCLIA [id number] [address] aPTT Coag (PPP) [Time] 28.8 s Normal 23.0-32.[address] [place] Comment on above: Order Comment: Speci men Type: BLOOD SPECIMENOrdering Facility: [facility] Address: [address] [place] [address] Performed By: #### 1 4979-9 ####[facility]ORATORYCLIA [id number] [place] [address] [place] ALLIED HEALTHon 07-23-2021 ALLIED HEALTH Normal [facility] ALLIED HEALTH Normal [facility] ALLIED HEALTH Normal [facility] ARTERIAL BLOOD GASESon 07-23 Base excess Calc (Bld) [Moles/Vol] 4 mmol/L High 0-2 [facility] Comment on above: Order Comment: Speci men Type: ARTERIAL BLOOD SPECIMENOrdering Facility: [facility] Address: [address] [place] [address] Performed By: #### A LLBG ####[facility] LABORATORYCLIA [id number] [address] STATES [facility] Body temperature 100.58 [degF] Normal [facility] Comment on above: Order Comment: Speci men Type: ARTERIAL BLOOD SPECIMENOrdering Facility: [facility] Address: [address] [place] [address] Performed By: #### A LLBG ####[facility]ORATORYCLIA [id number] [place] [address] [place] CALCIUM IONIZED, PH CORRECTED 1.26 mmol/L Normal 1.08-1.30 [facility] Comment on above: Order Comment: Speci men Type: ARTERIAL BLOOD SPECIMENOrdering Facility: [facility] Address: [address] [place] [address] Performed By: #### A LLBG ####[facility] LABORATORYCLIA [id number] [address] [place] Calcium.ionized (BldV) [Mass/Vol] 1.25 mmol/L Normal 1.08-1.30 [facility] Comment on above: Order Comment: Speci men Type: ARTERIAL BLOOD SPECIMENOrdering Facility: [facility] Address: [address] [place] [address] Performed By: #### A LLBG ####[facility] LABORATORYCLIA [id number] [address] [place] Carboxyhemoglobin (BldA) [Mass fraction] 1.2 % Normal 0.0-2.0 [facility] Comment on above: Order Comment: Speci men Type: ARTERIAL BLOOD SPECIMENOrdering Facility: [facility] Address: [address] [place] [address] Result Comment: Carb oxyhemoglobin Reference Range for Smokers: 2.0-8.0% Performed By: #### A LLBG ####[facility]ORATORYCLIA [id number] [address] [place] CO2 (Bld) [Partial pressure] 46 mm Hg Normal 36-46 [facility] Comment on above: Order Comment: Speci men Type: ARTERIAL BLOOD SPECIMENOrdering Facility: [facility] Address: [address] [place] [address] Performed By: #### A LLBG ####[facility]ORATORYCLIA [id number] [address] [place] CO2 [Moles/Vol] 27 mmol/L Normal 22-28 [facility] Comment on above: Order Comment: Speci men Type: ARTERIAL BLOOD SPECIMENOrdering Facility: [facility] Address: [address] [place] [address] Performed By: #### A LLBG ####[facility]ATORYCLIA [id number] [address] [place] CO2 adjusted to patient's actual temperature (Bld) [Partial pressure] 48 mmHg High 36-46 [facility] Comment on above: Order Comment: Speci men Type: ARTERIAL BLOOD SPECIMENOrdering Facility: [facility] Address: [address] [place] [address] Performed By: #### A LLBG ####[facility]ATORYCLIA [id number] [address] [place] Glucose [Mass/Vol] 134 mg/dL High 60-105 [facility] Comment on above: Order Comment: Speci men Type: ARTERIAL BLOOD SPECIMENOrdering Facility: [facility] Address: [address] [place] [address] Performed By: #### A LLBG ####[facility]ORATORYCLIA [id number] [address] [place] HCO3 (Bld) [Moles/Vol] 29 mmol/L High 22-[address] [place] Comment on above: Order Comment: Speci men Type: ARTERIAL BLOOD SPECIMENOrdering Facility: [facility] Address: [address] [place] [address] Performed By: #### A LLBG ####[facility]ORATORYCLIA [id number] [address] [place] Hematocrit (Bld) [Volume fraction] 31.4 % Low 39.0-51.0 [facility] Comment on above: Order Comment: Speci men Type: ARTERIAL BLOOD SPECIMENOrdering Facility: [facility] Address: [address] [place] [address] Performed By: #### A LLBG ####[facility]ORATORYCLIA [id number] [address] Hemoglobin (Bld) [Mass/Vol] 10.2 g/dL Low 13.0-17.0 [facility] Comment on above: Order Comment: Speci men Type: ARTERIAL BLOOD SPECIMENOrdering Facility: [facility] Address: [address] [place] [address] Performed By: #### A LLBG ####[facility]ORATORYCLIA [id number] [address] [place] Methemoglobin (Bld) [Mass fraction] % Normal 0.0-1.5 [facility] Comment on above: Order Comment: Speci men Type: ARTERIAL BLOOD SPECIMENOrdering Facility: [facility] Address: [address] [place] [address] Performed By: #### A LLBG ####[facility]ORATORYCLIA [id number] [address] [place] O2 THERAPY Ventilator Normal [facility] Comment on above: Order Comment: Speci men Type: ARTERIAL BLOOD SPECIMENOrdering Facility: [facility] Address: [address] [address] Performed By: #### A LLBG ####[facility]ORATORYCLIA [id number] [address] [place] Oxygen (Bld) [Partial pressure] 113 mm Hg High 85-95 [facility] Comment on above: Order Comment: Speci men Type: ARTERIAL BLOOD SPECIMENOrdering Facility: [facility] Address: [address] [place] [address] Performed By: #### A LLBG ####[facility]ORATORYCLIA [id number] [address] [place] Oxygen adjusted to patient's actual temperature (Bld) [Partial pressure] 119 mmHg High 85-95 [facility] Comment on above: Order Comment: Speci men Type: ARTERIAL BLOOD SPECIMENOrdering Facility: [facility] Address: [address] [place] [address] Performed By: #### A LLBG ####[facility]ORATORYCLIA [id number] [address] [place] OXYGEN SATURATION, ARTERIAL 98 % Normal 95-98 [facility] Comment on above: Order Comment: Speci men Type: ARTERIAL BLOOD SPECIMENOrdering Facility: [facility] Address: [address] [place] [address] Performed By: #### A LLBG ####[facility]ATORYCLIA [id number] [address] [place] Oxyhemoglobin (BldA) [Mass fraction] 96 % Normal 95-98 [facility] Comment on above: Order Comment: Speci men Type: ARTERIAL BLOOD SPECIMENOrdering Facility: [facility] Address: [address] [place] [address] Performed By: #### A LLBG ####[facility]ATORYCLIA [id number] [place] [address] [place] pH (Bld) 7.41 [pH] Normal 7.35-7.45 [facility] Comment on above: Order Comment: Speci men Type: ARTERIAL BLOOD SPECIMENOrdering Facility: [facility] Address: [address] [place] [address] Performed By: #### A LLBG ####[facility]ORATORYCLIA [id number] [address] STATES [facility] pH adjusted to patient's actual temperature (Bld) 7.40 Normal 7.35-7.45 [facility] Comment on above: Order Comment: Speci men Type: ARTERIAL BLOOD SPECIMENOrdering Facility: [facility] Address: [address] [place] [address] Performed By: #### A LLBG ####[facility]ORATORYCLIA [id number] [address] [place] Potassium [Moles/Vol] 4.3 mmol/L Normal 3.5-5.0 [facility] Comment on above: Order Comment: Speci men Type: ARTERIAL BLOOD SPECIMENOrdering Facility: [facility] Address: [address] [place] [address] Performed By: #### A LLBG ####[facility]ORATORYCLIA [id number] [address] [place] Sodium [Moles/Vol] 144 mmol/L Normal 136-144 [facility] Comment on above: Order Comment: Speci men Type: ARTERIAL BLOOD SPECIMENOrdering Facility: [facility] Address: [address] [place] [address] Performed By: #### A LLBG ####[facility]ORATORYCLIA [id number] [place] [address] [place] Bacteria CSF Culton 07-24-19 22 Bacteria identified Cx Nom (CSF) Abnormal [facility] Comment on above: Performed By: #### 6 06-4 ####[facility]ORATORYCLIA [id number] [place] [address] [place] Basic metabolic 2000 panelon 07-23-2021 Anion gap [Moles/Vol] 12 mmol/L Normal 9-18 [facility] Comment on above: Order Comment: Speci men Type: BLOOD SPECIMENOrdering Facility: [facility] Address: [address] [place] [address] Performed By: #### 2 4321-2 ####[facility]ORATORYCLIA [id number] [place] [address] [place] Calcium [Mass/Vol] 9.7 mg/dL Normal 8.5-10.2 [facility] Comment on above: Order Comment: Speci men Type: BLOOD SPECIMENOrdering Facility: [facility] Address: [address] [place] [address] Performed By: #### 2 4321-2 ####[facility]ORATORYCLIA [id number] [address] [place] Chloride [Moles/Vol] 105 mmol/L Normal 97-105 [facility] Comment on above: Order Comment: Speci men Type: BLOOD SPECIMENOrdering Facility: [facility] Address: [address] [place] [address] Performed By: #### 2 4321-2 ####[facility]ORATORYCLIA [id number] [place] [address] [place] CO2 [Moles/Vol] 28 mmol/L Normal 22-30 [facility] Comment on above: Order Comment: Speci men Type: BLOOD SPECIMENOrdering Facility: [facility] Address: [address] [place] [address] Performed By: #### 2 4321-2 ####[facility]ORATORYCLIA [id number] [address] [place] Creatinine [Mass/Vol] 0.78 mg/dL Normal 0.73-1.22 [facility] Comment on above: Order Comment: Speci men Type: BLOOD SPECIMENOrdering Facility: [facility] Address: [address] [place] [address] Performed By: #### 2 4321-2 ####[facility] LABORATORYCLIA [id number] [place] [address] [place] ESTIMATED GLOMERULAR FILTRATION RATE 97 mL/min/1.73m??? Normal >=60 [facility] Comment on above: Order Comment: Shira feldman Type: BLOOD SPECIMENOrdering Facility: [facility] Address: [address] [place], [place] [phone] Result Comment: Luzmaria mated Glomerular Filtration Rate [...] Performed By: #### 2 4321-2 ####[facility]ORATORYCLIA [id number] [place] [address] [place] Glucose [Mass/Vol] 127 mg/dL High 74-99 [facility] Comment on above: Order Comment: Shira feldman Type: BLOOD SPECIMENOrdering Facility: [facility] Address: [address] [place] [address] Result Comment: The [place] [employer] (ADA) provides guidance for cutoff [...] Standards of Medical Care in Diabetes 2016, [place] [employer]. Diabetes Care. 2016.39(Suppl 1). Performed By: #### 2 4321-2 ####[facility] LABORATORYCLIA [id number] [place] [address] [place] Potassium [Moles/Vol] 4.3 mmol/L Normal 3.7-5.1 [facility] Comment on above: Order Comment: Shira feldman Type: BLOOD SPECIMENOrdering Facility: [facility] Address: [address] [phone] Performed By: #### 2 4321-2 ####[facility] LABORATORYCLIA [id number] [address] STATES [facility] Sodium [Moles/Vol] 145 mmol/L High 136-144 [facility] Comment on above: Order Comment: Speci men Type: BLOOD SPECIMENOrdering Facility: [facility] Address: [address] [place] [address] Performed By: #### 2 4321-2 ####[facility] LABORATORYCLIA [id number] [address] [place] Urea nitrogen [Mass/Vol] 37 mg/dL High 9-24 [facility] Comment on above: Order Comment: Speci men Type: BLOOD SPECIMENOrdering Facility: [facility] Address: [address] [place] [address] Performed By: #### 2 4321-2 ####[facility] LABORATORYCLIA [id number] [address] [place] C diff Tox gens Stl Ql MEGAN+p robeon 07-23-2021 C. difficile toxin genes MEGAN+probe Ql (Stl) Negative Normal Negative for C. difficile toxin by PCR [facility] Comment on above: Order Comment: Speci men Type: STOOL SPECIMENOrdering Facility: [facility] Address: [address] [place] [address] Performed By: #### 5 4067-4 ####[facility] LABORATORYCLIA [id number] [address] [place] CBC W Auto Differential pane l (Bld)on 07-23-2021 Basophils (Bld) [#/Vol] 0.07 10*3/uL Normal <0.11 [facility] Comment on above: Order Comment: Speci men Type: BLOOD SPECIMENOrdering Facility: [facility] Address: [address] [place] [address] Performed By: #### 5 7021-8 ####[facility] LABORATORYCLIA [id number] [address] Basophils/100 WBC (Bld) 0.5 % Normal [facility] Comment on above: Order Comment: Speci men Type: BLOOD SPECIMENOrdering Facility: [facility] Address: [address] [place] [address] Performed By: #### 5 7021-8 ####[facility]ORATORYCLIA [id number] [address] Differential cell count method Nom (Bld) Auto Normal [facility] Comment on above: Order Comment: Speci men Type: BLOOD SPECIMENOrdering Facility: [facility] Address: [address] [place] [address] Performed By: #### 5 7021-8 ####[facility]ORATORYCLIA [id number] [address] STATES [facility] Eosinophils (Bld) [#/Vol] 10*3/uL Normal <0.46 [facility] Comment on above: Order Comment: Speci men Type: BLOOD SPECIMENOrdering Facility: [facility] Address: [address] [place] [address] Performed By: #### 5 7021-8 ####[facility]ORATORYCLIA [id number] [address] Eosinophils/100 WBC (Bld) 0.2 % Normal [facility] Comment on above: Order Comment: Speci men Type: BLOOD SPECIMENOrdering Facility: [facility] Address: [address] [place] [address] Performed By: #### 5 7021-8 ####[facility] LABORATORYCLIA [id number] [address] [place] Erythrocyte distribution width (RBC) [Ratio] 16.7 % High 11.5-15.0 [facility] Comment on above: Order Comment: Speci men Type: BLOOD SPECIMENOrdering Facility: [facility] Address: [address] [place] [address] Performed By: #### 5 7021-8 ####[facility]ORATORYCLIA [id number] [address] Hematocrit (Bld) [Volume fraction] 32.8 % Low 39.0-51.0 [facility] Comment on above: Order Comment: Speci men Type: BLOOD SPECIMENOrdering Facility: [facility] Address: [address] [place] [address] Performed By: #### 5 7021-8 ####[facility] LABORATORYCLIA [id number] [address] Hemoglobin (Bld) [Mass/Vol] 9.7 g/dL Low 13.0-17.0 [facility] Comment on above: Order Comment: Speci men Type: BLOOD SPECIMENOrdering Facility: [facility] Address: [address] [place] [address] Performed By: #### 5 7021-8 ####[facility] LABORATORYCLIA [id number] [address] IMMATURE GRAN % 0.7 % Normal [facility] Comment on above: Order Comment: Speci men Type: BLOOD SPECIMENOrdering Facility: [facility] Address: [address] [place] [address] Performed By: #### 5 7021-8 ####[facility] LABORATORYCLIA [id number] [address] IMMATURE GRAN ABS 0.09 k/uL Normal <0.10 [facility] Comment on above: Order Comment: Speci men Type: BLOOD SPECIMENOrdering Facility: [facility] Address: [address] [place] [address] Performed By: #### 5 7021-8 ####[facility] LABORATORYCLIA [id number] [address] Lymphocytes (Bld) [#/Vol] 1.94 10*3/uL Normal 1.00-4.00 [facility] Comment on above: Order Comment: Speci men Type: BLOOD SPECIMENOrdering Facility: [facility] Address: [address] [place], [place] [address] Performed By: #### 5 7021-8 ####[facility] LABORATORYCLIA [id number] [address] Lymphocytes/100 WBC (Bld) 14.6 % Normal [facility] Comment on above: Order Comment: Speci men Type: BLOOD SPECIMENOrdering Facility: [facility] Address: [address] [place] [address] Performed By: #### 5 7021-8 ####[facility] LABORATORYCLIA [id number] [address] MCH (RBC) [Entitic mass] 27.2 pg Normal 26.0-34.0 [facility] Comment on above: Order Comment: Speci men Type: BLOOD SPECIMENOrdering Facility: [facility] Address: [address] [place] [address] Performed By: #### 5 7021-8 ####[facility] LABORATORYCLIA [id number] [address] MCHC (RBC) [Mass/Vol] 29.6 g/dL Low 30.5-36.0 [facility] Comment on above: Order Comment: Speci men Type: BLOOD SPECIMENOrdering Facility: [facility] Address: [address] [place] [address] Performed By: #### 5 7021-8 ####[facility] LABORATORYCLIA [id number] [address] STATES [facility] MCV (RBC) [Entitic vol] 92.1 fL Normal 80.0-100.0 [facility] Comment on above: Order Comment: Speci men Type: BLOOD SPECIMENOrdering Facility: [facility] Address: [address] [place] [address] Performed By: #### 5 7021-8 ####[facility] LABORATORYCLIA [id number] [address] Monocytes (Bld) [#/Vol] 0.74 10*3/uL Normal <0.87 [facility] Comment on above: Order Comment: Speci men Type: BLOOD SPECIMENOrdering Facility: [facility] Address: [address] [place] [address] Performed By: #### 5 7021-8 ####[facility] LABORATORYCLIA [id number] [address] [place] Monocytes/100 WBC (Bld) 5.6 % Normal [facility] Comment on above: Order Comment: Speci men Type: BLOOD SPECIMENOrdering Facility: [facility] Address: [address] [place] [address] Performed By: #### 5 7021-8 ####[facility] LABORATORYCLIA [id number] [address] [place] Neutrophils (Bld) [#/Vol] 10.43 10*3/uL High 1.45-7.50 [facility] Comment on above: Order Comment: Speci men Type: BLOOD SPECIMENOrdering Facility: [facility] Address: [address] [place] [address] Performed By: #### 5 7021-8 ####[facility] LABORATORYCLIA [id number] [address] Neutrophils/100 WBC (Bld) 78.4 % Normal [facility] Comment on above: Order Comment: Speci men Type: BLOOD SPECIMENOrdering Facility: [facility] Address: [address] [place] [address] Performed By: #### 5 7021-8 ####[facility] LABORATORYCLIA [id number] [address] [place] Nucleated RBC (Bld) [#/Vol] 10*3/uL Normal <0.01 [facility] Comment on above: Order Comment: Speci men Type: BLOOD SPECIMENOrdering Facility: [facility] Address: [address] [place] [address] Performed By: #### 5 7021-8 ####[facility] LABORATORYCLIA [id number] [address] OF [facility] Nucleated RBC/100 WBC (Bld) [Ratio] 0.0 /100 WBC Normal [facility] Comment on above: Order Comment: Speci men Type: BLOOD SPECIMENOrdering Facility: [facility] Address: [address] [place] [address] Performed By: #### 5 7021-8 ####[facility] LABORATORYCLIA [id number] [address] [place] Platelet mean volume (Bld) [Entitic vol] 11.0 fL Normal 9.0-12.7 [facility] Comment on above: Order Comment: Speci men Type: BLOOD SPECIMENOrdering Facility: [facility] Address: [address] [place] [address] Performed By: #### 5 7021-8 ####[facility] LABORATORYCLIA [id number] [address] [place] Platelets (Bld) [#/Vol] 381 10*3/uL Normal 150-400 [facility] Comment on above: Order Comment: Speci men Type: BLOOD SPECIMENOrdering Facility: [facility] Address: [address] [place] [address] Performed By: #### 5 7021-8 ####[facility] LABORATORYCLIA [id number] [address] [place] RBC (Bld) [#/Vol] 3.56 10*6/uL Low 4.20-6.00 [facility] Comment on above: Order Comment: Speci men Type: BLOOD SPECIMENOrdering Facility: [facility] Address: [address] [place] [address] Performed By: #### 5 7021-8 ####[facility] LABORATORYCLIA [id number] [address] [place] WBC (Bld) [#/Vol] 13.29 10*3/uL High 3.70-11.00 [facility] Comment on above: Order Comment: Speci men Type: BLOOD SPECIMENOrdering Facility: [facility] Address: [address] [place] [address] Performed By: #### 5 7021-8 ####[facility] LABORATORYCLIA [id number] [address] [place] CONSULT PROGon 07-23-2021 CONSULT PROG Normal [facility] CONSULT PROG Normal [facility] CSF MANUAL DIFFon 07-23-2021 DIF TTL, CSF 100 cells counted Normal [facility] Comment on above: Order Comment: Speci men Type: CEREBROSPINAL FLUIDOrdering Facility: [facility] Address: [address] [place] [address] Performed By: #### L [id number], [id number], 92114-7 ####[facility] LABORATORYCLIA [id number] [address] [place] LYMPH%, CSF 2 % Low 50-90 [facility] Comment on above: Order Comment: Speci men Type: CEREBROSPINAL FLUIDOrdering Facility: [facility] Address: [address] [place] [address] Performed By: #### L [id number], OGG3535, 94195-1 ####[facility] LABORATORYCLIA [id number] [place] [address] [place] MONO%, CSF 9 % Low 10-50 [facility] Comment on above: Order Comment: Speci men Type: CEREBROSPINAL FLUIDOrdering Facility: [facility] Address: [address] [place] [address] Performed By: #### L [id number], CJJ0308, 73777-8 ####[facility] LABORATORYCLIA [id number] [place] [address] [place] NEUT%, CSF 89 % High 0-3 [facility] Comment on above: Order Comment: Speci men Type: CEREBROSPINAL FLUIDOrdering Facility: [facility] Address: [address] [place] [address] Performed By: #### L [id number], UWR0240, 49992-3 ####[facility] LABORATORYCLIA [id number] [address] CSF PATHOLOGIST INTERP (LAB REFLEX ORDER-NO BILL)on 07-23-2021 CSF STAFF REVIEW Negative for maligna nt cells. Numerous bacterial organisms present, cocci in pairs and chains. Recommend correlation with CSF culture results. Normal [facility] Comment on above: Order Comment: Speci men Type: CEREBROSPINAL FLUIDOrdering Facility: [facility] Address: [address] [place] [address] Performed By: #### L [id number], YBS1270, 49452-2 ####[facility] LABORATORYCLIA [id number] [address] Pathologist name Reviewed by Amador Stevens MD [facility] Comment on above: Order Comment: Speci men Type: CEREBROSPINAL FLUIDOrdering Facility: [facility] Address: [address] [place] [address] Performed By: #### L [id number], TWD1155, 20580-4 ####[facility] LABORATORYCLIA [id number] [address] [place] CT BRAIN WO IVCONon 07-24-19 CT BRAIN WO IVCON Normal [facility] Cell count panel (CSF)on Clarity (CSF) Clear Normal Clear [facility] Comment on above: Order Comment: Speci men Type: CEREBROSPINAL FLUIDOrdering Facility: [facility] Address: [address] [place] [address] Performed By: #### L [id number], NFF0128, 55235-0 ####[facility] LABORATORYCLIA [id number] [address] [place] Clarity (Unsp spec) Not Indicated Normal Clear [place] Comment on above: Order Comment: Speci men Type: CEREBROSPINAL FLUIDOrdering Facility: [facility] Address: [address] [place] [address] Performed By: #### L RK9592, DSM6730, 75626-4 ####[facility] LABORATORYCLIA [id number] [address] OF [facility] Color (CSF) Colorless Normal Colorless [facility] Comment on above: Order Comment: Speci men Type: CEREBROSPINAL FLUIDOrdering Facility: [facility] Address: [address] [place] [address] Performed By: #### L [id number], RRM3917, 72261-3 ####[facility] LABORATORYCLIA [id number] [address] Color (Spun CSF) Not Indicated Normal Colorless [facility] Comment on above: Order Comment: Speci men Type: CEREBROSPINAL FLUIDOrdering Facility: [facility] Address: [address] [place] [address] Performed By: #### L [id number], AUM4557, 36997-4 ####[facility] LABORATORYCLIA [id number] [address] [place] CSF TUBE NUMBER [employer] Normal [place] Comment on above: Order Comment: Speci men Type: CEREBROSPINAL FLUIDOrdering Facility: [facility] Address: [address] [place] [address] Performed By: #### L PG7924, QDN3001, 42921-5 ####[facility] LABORATORYCLIA [id number] [address] [place] RBC Manual cnt (CSF) [#/Vol] 7 cells/uL High 0-5 [facility] Comment on above: Order Comment: Speci men Type: CEREBROSPINAL FLUIDOrdering Facility: [facility] Address: [address] [place], [place] [address] Performed By: #### L GI1153, GLK1044, 37887-7 ####[facility] LABORATORYCLIA [id number] [address] WBC Manual cnt (CSF) [#/Vol] 193 cells/uL High 0-5 [facility] Comment on above: Order Comment: Speci men Type: CEREBROSPINAL FLUIDOrdering Facility: [facility] Address: [address] [place], [place] [address] Performed By: #### L BE1881, LSU5751, 42512-1 ####[facility] LABORATORYCLIA [id number] [address] OF [facility] Glucose CSF-ncon Glucose (CSF) [Mass/Vol] 81 mg/dL High 40-70 [facility] Comment on above: Order Comment: Speci men Type: CEREBROSPINAL FLUIDOrdering Facility: [facility] Address: [address] [place] [address] Result Comment: Lumb ar CSF glucose values of healthy patients are approximately 60% of the plasma values and must always be compared with a concurrently measured plasma value for adequate clinical interpretation.References: 1. Glucose HK (GLUC3) [package insert V 12.0 Citizen [place]]. [employer], [place], [place]. September 2015. 2. Michelle Moore, Michelle Manjarrez (2015). Chapter 7: Glucose and Lactate. FGarfield Rothman.(eds.), Cerebrospinal Fluid in Clinical Neurology. [place]: [employer]. Performed By: #### 2 342-4, 2880-3 ####[facility] LABORATORYCLIA [id number] [address] [place] NURSING PROGon 07-23-2021 NURSING PROG Normal [facility] NURSING PROG Normal [facility] Prot CSF-ncon 07-23-2021 Protein (CSF) [Mass/Vol] 68 mg/dL High 15-45 [facility] Comment on above: Order Comment: Speci men Type: CEREBROSPINAL FLUIDOrdering Facility: [facility] Address: [address] [place] [address] Performed By: #### 2 342-4, 2880-3 ####[facility] LABORATORYCLIA [id number] [address] Urinalysis complete panel (U )on 07-23-2021 Bilirubin Ql (U) Negative Normal Negative [facility] Comment on above: Order Comment: Speci men Type: URINE SPECIMENOrdering Facility: [facility] Address: [address] [place] [address] Performed By: #### 2 4356-8 ####[facility] LABORATORYCLIA [id number] [address] Clarity (Unsp spec) Clear Normal Clear [facility] Comment on above: Order Comment: Speci men Type: URINE SPECIMENOrdering Facility: [facility] Address: [address] [place] [address] Performed By: #### 2 4356-8 ####[facility] LABORATORYCLIA [id number] [address] Color (U) Light Yellow Normal yellow [facility] Comment on above: Order Comment: Speci men Type: URINE SPECIMENOrdering Facility: [facility] Address: [address] [place] [address] Performed By: #### 2 4356-8 ####[facility] LABORATORYCLIA [id number] [address] Glucose Test strip (U) [Mass/Vol] Negative Normal Negative [facility] Comment on above: Order Comment: Speci men Type: URINE SPECIMENOrdering Facility: [facility] Address: [address] [place] [address] Performed By: #### 2 4356-8 ####[facility] LABORATORYCLIA [id number] [address] Hemoglobin Ql (U) Negative Normal Negative [facility] Comment on above: Order Comment: Speci men Type: URINE SPECIMENOrdering Facility: [facility] Address: [facility] [place] [address] Performed By: #### 2 4356-8 ####[facility] LABORATORYCLIA [id number] [address] Ketones Ql (U) Negative Normal Negative [facility] Comment on above: Order Comment: Speci men Type: URINE SPECIMENOrdering Facility: [facility] Address: [facility] [place] [address] Performed By: #### 2 4356-8 ####[facility] LABORATORYCLIA [id number] [address] Leukocyte esterase Test strip Ql (U) Negative Normal Negative [facility] Comment on above: Order Comment: Speci men Type: URINE SPECIMENOrdering Facility: [facility] Address: [address] [place] [address] Performed By: #### 2 4356-8 ####[facility] LABORATORYCLIA [id number] [address] Nitrite Ql (U) Negative Normal Negative [facility] Comment on above: Order Comment: Speci men Type: URINE SPECIMENOrdering Facility: [facility] Address: [address] [place] [address] Performed By: #### 2 4356-8 ####[facility] LABORATORYCLIA [id number] [address] pH (U) 6.0 [pH] Normal 5.0-8.0 [facility] Comment on above: Order Comment: Speci men Type: URINE SPECIMENOrdering Facility: [facility] Address: [address] [place] [address] Performed By: #### 2 4356-8 ####[facility] LABORATORYCLIA [id number] [address] Protein (U) [Mass/Vol] 1+ Abnormal Negative [place] Comment on above: Order Comment: Speci men Type: URINE SPECIMENOrdering Facility: [facility] Address: [address] [place] [address] Performed By: #### 2 4356-8 ####[facility] LABORATORYCLIA [id number] [address] RBC LM.HPF (Urine sed) [#/Area] 0-3 /HPF Normal 0-3 /HPF [facility] Comment on above: Order Comment: Speci men Type: URINE SPECIMENOrdering Facility: [facility] Address: [address] [place] [address] Performed By: #### 2 4356-8 ####[facility] LABORATORYCLIA [id number] [address] STATES [facility] Specific gravity (U) [Rel density] 1.018 Normal 1.005-1.030 [facility] Comment on above: Order Comment: Speci men Type: URINE SPECIMENOrdering Facility: [facility] Address: [address] [place] [address] Performed By: #### 2 4356-8 ####[facility] LABORATORYCLIA [id number] [address] Urobilinogen Ql (U) Normal Normal Negative [facility] Comment on above: Order Comment: Speci men Type: URINE SPECIMENOrdering Facility: [facility] Address: [address] [place] [address] Performed By: #### 2 4356-8 ####[facility]ITALCLIA [id number] [address] WBC LM.HPF (Urine sed) [#/Area] 0-5 /HPF Normal 0-5 /HPF [facility] Comment on above: Order Comment: Speci men Type: URINE SPECIMENOrdering Facility: [facility] Address: [address] [place] [address] Performed By: #### 2 4356-8 ####[facility]ITALCLIA [id number] [address] OF [facility] Vancomycin random [Mass/Vol] on 07-23-2021 Vancomycin [Mass/Vol] 12.9 ug/mL Normal 10.0-20.0 [facility] Comment on above: Order Comment: Speci men Type: BLOOD SPECIMENOrdering Facility: [facility] Address: [address] [place] [address] Result Comment: Refe rence ranges and high/low indicator flags are provided as general guidelines only. The treating physician must determine appropriate target levels/dosing based on the specific clinical situation. Performed By: #### 4 091-5 ####[facility] LABORATORYCLIA [id number] [address] STATES OF [facility] XR CHEST 1V FRONTALon 2021 XR CHEST 1V FRONTAL Normal [facility] XR CHEST 1V FRONTAL Normal [facility] aPTT PPPon 07-23-2021 aPTT Coag (PPP) [Time] 32.3 s Normal 23.0-32.4 [place] Comment on above: Order Comment: Speci men Type: BLOOD SPECIMENOrdering Facility: [facility] Address: [address] [place] [address] Performed By: #### 1 4979-9 ####[facility] LABORATORYCLIA [id number] [address] aPTT Coag (PPP) [Time] 57.9 s High 23.0-32.[address] [place] Comment on above: Order Comment: Speci men Type: BLOOD SPECIMENOrdering Facility: [facility] Address: [address] [place] [address] Performed By: #### 1 4979-9 ####[facility] LABORATORYCLIA [id number] [address] STATES OF [facility] aPTT Coag (PPP) [Time] 46.3 s High 23.0-32.[address] [place] Comment on above: Order Comment: Speci men Type: BLOOD SPECIMENOrdering Facility: [facility] Address: [address] [place] [address] Performed By: #### 1 4979-9 ####[facility] LABORATORYCLIA [id number] [place] [address] [place] Basic metabolic 2000 panelon 07-22-2021 Anion gap [Moles/Vol] 8 mmol/L Low 9-18 [facility] Comment on above: Order Comment: Speci men Type: BLOOD SPECIMENOrdering Facility: [facility] Address: [address] [place] [address] Performed By: #### 2 4321-2 ####[facility] LABORATORYCLIA [id number] [address] [place] Calcium [Mass/Vol] 9.5 mg/dL Normal 8.5-10.2 [facility] Comment on above: Order Comment: Speci men Type: BLOOD SPECIMENOrdering Facility: [facility] Address: [address] [place] [address] Performed By: #### 2 4321-2 ####[facility] LABORATORYCLIA [id number] [place] [address] [place] Chloride [Moles/Vol] 105 mmol/L Normal 97-105 [facility] Comment on above: Order Comment: Speci men Type: BLOOD SPECIMENOrdering Facility: [facility] Address: [address] [place] [address] Performed By: #### 2 4321-2 ####[facility] LABORATORYCLIA [id number] [place] [address] [place] CO2 [Moles/Vol] 32 mmol/L High 22-30 [facility] Comment on above: Order Comment: Speci men Type: BLOOD SPECIMENOrdering Facility: [facility] Address: [address] [place] [address] Performed By: #### 2 4321-2 ####[facility] LABORATORYCLIA [id number] [address] [place] Creatinine [Mass/Vol] 0.75 mg/dL Normal 0.73-1.22 [facility] Comment on above: Order Comment: Speci men Type: BLOOD SPECIMENOrdering Facility: [facility] Address: [address] [place] [address] Performed By: #### 2 4321-2 ####[facility] LABORATORYCLIA [id number] [address] [place] ESTIMATED GLOMERULAR FILTRATION RATE 98 mL/min/1.73m??? Normal >=60 [facility] Comment on above: Order Comment: Speci men Type: BLOOD SPECIMENOrdering Facility: [facility] Address: [address] [place] [address] Result Comment: Luzmaria mated Glomerular Filtration Rate [...] Performed By: #### 2 4321-2 ####[facility] LABORATORYCLIA [id number] [place] [address] [place] Glucose [Mass/Vol] 128 mg/dL High 74-99 [facility] Comment on above: Order Comment: Speci men Type: BLOOD SPECIMENOrdering Facility: [facility] Address: [address] [place] [address] Result Comment: The [place] [employer] (ADA) provides guidance for cutoff [...] Standards of Medical Care in Diabetes 2016, [place] [employer]. Diabetes Care. 2016.39(Suppl 1). Performed By: #### 2 4321-2 ####[facility] LABORATORYCLIA [id number] [place] [address] [place] Potassium [Moles/Vol] 3.7 mmol/L Normal 3.7-5.1 [facility] Comment on above: Order Comment: Speci men Type: BLOOD SPECIMENOrdering Facility: [facility] Address: [address] [place], [place] [address] Performed By: #### 2 4321-2 ####[facility] LABORATORYCLIA [id number] [place] [id number] [place] Sodium [Moles/Vol] 145 mmol/L High 136-144 [facility] Comment on above: Order Comment: Speci men Type: BLOOD SPECIMENOrdering Facility: [facility] Address: [address] [place] [address] Performed By: #### 2 4321-2 ####[facility] LABORATORYCLIA [id number] [place] [id number] [place] Urea nitrogen [Mass/Vol] 39 mg/dL High 9-24 [facility] Comment on above: Order Comment: Speci men Type: BLOOD SPECIMENOrdering Facility: [facility] Address: [address] [place] [address] Performed By: #### 2 4321-2 ####[facility] LABORATORYCLIA [id number] [address] [place] CASE MANAGEMon 07-22-2021 CASE MANAGEM Normal [facility] CBC W Auto Differential pane l (Bld)on 07-22-2021 Basophils (Bld) [#/Vol] 0.06 10*3/uL Normal <0.11 [facility] [facility] Comment on above: Order Comment: Speci men Type: BLOOD SPECIMENOrdering Facility: [facility] Address: [address] [place] [address] Performed By: #### 5 7021-8 ####[facility] LABORATORYCLIA [id number] [address] [place] Basophils/100 WBC (Bld) 0.5 % Normal [facility] Comment on above: Order Comment: Speci men Type: BLOOD SPECIMENOrdering Facility: [facility] Address: [address] [place] [address] Performed By: #### 5 7021-8 ####[facility] LABORATORYCLIA [id number] [address] [place] Differential cell count method Nom (Bld) Auto Normal [facility] Comment on above: Order Comment: Speci men Type: BLOOD SPECIMENOrdering Facility: [facility] Address: [address] [place] [address] Performed By: #### 5 7021-8 ####[facility] LABORATORYCLIA [id number] [address] [place] Eosinophils (Bld) [#/Vol] 0.44 10*3/uL Normal <0.46 [facility] Comment on above: Order Comment: Speci men Type: BLOOD SPECIMENOrdering Facility: [facility] Address: [address] [place] [address] Performed By: #### 5 7021-8 ####[facility] LABORATORYCLIA [id number] [address] Eosinophils/100 WBC (Bld) 3.9 % Normal [facility] Comment on above: Order Comment: Speci men Type: BLOOD SPECIMENOrdering Facility: [facility] Address: [address] [place] [address] Performed By: #### 5 7021-8 ####[facility]ORATORYCLIA [id number] [address] Erythrocyte distribution width (RBC) [Ratio] 17.0 % High 11.5-15.0 [facility] Comment on above: Order Comment: Speci men Type: BLOOD SPECIMENOrdering Facility: [facility] Address: [address] [place] [address] Performed By: #### 5 7021-8 ####[facility] LABORATORYCLIA [id number] [address] [place] Hematocrit (Bld) [Volume fraction] 32.0 % Low 39.0-51.0 [facility] Comment on above: Order Comment: Speci men Type: BLOOD SPECIMENOrdering Facility: [facility] Address: [address] [place] [address] Performed By: #### 5 7021-8 ####[facility] LABORATORYCLIA [id number] [address] [place] Hemoglobin (Bld) [Mass/Vol] 9.3 g/dL Low 13.0-17.0 [facility] Comment on above: Order Comment: Speci men Type: BLOOD SPECIMENOrdering Facility: [facility] Address: [address] [place] [address] Performed By: #### 5 7021-8 ####[facility]ORATORYCLIA [id number] [address] IMMATURE GRAN % 0.5 % Normal [facility] Comment on above: Order Comment: Speci men Type: BLOOD SPECIMENOrdering Facility: [facility] Address: [address] [place] [address] Performed By: #### 5 7021-8 ####[facility]ATORYCLIA [id number] [address] IMMATURE GRAN ABS 0.06 k/uL Normal <0.10 [facility] Comment on above: Order Comment: Speci men Type: BLOOD SPECIMENOrdering Facility: [facility] Address: [address] [place] [address] Performed By: #### 5 7021-8 ####[facility]ATORYCLIA [id number] [address] Lymphocytes (Bld) [#/Vol] 1.83 10*3/uL Normal 1.00-4.00 [facility] Comment on above: Order Comment: Speci men Type: BLOOD SPECIMENOrdering Facility: [facility] Address: [address] [place] [address] Performed By: #### 5 7021-8 ####[facility]ORATORYCLIA [id number] [address] Lymphocytes/100 WBC (Bld) 16.1 % Normal [facility] Comment on above: Order Comment: Speci men Type: BLOOD SPECIMENOrdering Facility: [facility] Address: [address] [place] [address] Performed By: #### 5 7021-8 ####[facility]ORATORYCLIA [id number] [address] [place] MCH (RBC) [Entitic mass] 27.0 pg Normal 26.0-34.0 [facility] Comment on above: Order Comment: Speci men Type: BLOOD SPECIMENOrdering Facility: [facility] Address: [address] [place] [address] Performed By: #### 5 7021-8 ####[facility]ORATORYCLIA [id number] [address] MCHC (RBC) [Mass/Vol] 29.1 g/dL Low 30.5-36.0 [facility] Comment on above: Order Comment: Speci men Type: BLOOD SPECIMENOrdering Facility: [facility] Address: [address] [place] [address] Performed By: #### 5 7021-8 ####[facility]ORATORYCLIA [id number] [address] MCV (RBC) [Entitic vol] 92.8 fL Normal 80.0-100.0 [facility] Comment on above: Order Comment: Speci men Type: BLOOD SPECIMENOrdering Facility: [facility] Address: [address] [place] [address] Performed By: #### 5 7021-8 ####[facility]ATORYCLIA [id number] [address] Monocytes (Bld) [#/Vol] 0.87 10*3/uL High <0.87 [facility] Comment on above: Order Comment: Speci men Type: BLOOD SPECIMENOrdering Facility: [facility] Address: [address] [place] [address] Performed By: #### 5 7021-8 ####[facility]ATORYCLIA [id number] [address] Monocytes/100 WBC (Bld) 7.6 % Normal [facility] Comment on above: Order Comment: Speci men Type: BLOOD SPECIMENOrdering Facility: [facility] Address: [address] [place] [address] Performed By: #### 5 7021-8 ####[facility] LABORATORYCLIA [id number] [place] [address] [place] Neutrophils (Bld) [#/Vol] 8.12 10*3/uL High 1.45-7.50 [facility] Comment on above: Order Comment: Speci men Type: BLOOD SPECIMENOrdering Facility: [facility] Address: [address] [place] [address] Performed By: #### 5 7021-8 ####[facility]ORATORYCLIA [id number] [address] [place] Neutrophils/100 WBC (Bld) 71.4 % Normal [facility] Comment on above: Order Comment: Speci men Type: BLOOD SPECIMENOrdering Facility: [facility] Address: [address] [place] [address] Performed By: #### 5 7021-8 ####[facility]ATORYCLIA [id number] [address] [place] Nucleated RBC (Bld) [#/Vol] 10*3/uL Normal <0.01 [facility] Comment on above: Order Comment: Speci men Type: BLOOD SPECIMENOrdering Facility: [facility] Address: [address] [place] [address] Performed By: #### 5 7021-8 ####[facility]ATORYCLIA [id number] [address] [place] Nucleated RBC/100 WBC (Bld) [Ratio] 0.0 /100 WBC Normal [facility] Comment on above: Order Comment: Speci men Type: BLOOD SPECIMENOrdering Facility: [facility] Address: [address] [place] [address] Performed By: #### 5 7021-8 ####[facility]ORATORYCLIA [id number] [address] [place] Platelet mean volume (Bld) [Entitic vol] 10.8 fL Normal 9.0-12.7 [facility] Comment on above: Order Comment: Speci men Type: BLOOD SPECIMENOrdering Facility: [facility] Address: [address] [place] [address] Performed By: #### 5 7021-8 ####[facility]ORATORYCLIA [id number] [address] OF [facility] Platelets (Bld) [#/Vol] 362 10*3/uL Normal 150-400 [facility] Comment on above: Order Comment: Speci men Type: BLOOD SPECIMENOrdering Facility: [facility] Address: [address] [place] [address] Performed By: #### 5 7021-8 ####[facility]ORATORYCLIA [id number] [place] [address] [place] RBC (Bld) [#/Vol] 3.45 10*6/uL Low 4.20-6.00 [facility] Comment on above: Order Comment: Speci men Type: BLOOD SPECIMENOrdering Facility: [facility] Address: [address] [place] [address] Performed By: #### 5 7021-8 ####[facility]ORATORYCLIA [id number] [address] OF [facility] WBC (Bld) [#/Vol] 11.38 10*3/uL High 3.70-11.00 [facility] Comment on above: Order Comment: Speci men Type: BLOOD SPECIMENOrdering Facility: [facility] Address: [address] [place] [address] Performed By: #### 5 7021-8 ####[facility]ORATORYCLIA [id number] [address] [place] Magnesium SerPl-mCncon 07-22 Magnesium [Mass/Vol] 2.3 mg/dL Normal 1.7-2.3 [facility] Comment on above: Order Comment: Speci men Type: BLOOD SPECIMENOrdering Facility: [facility] Address: [address] [place] [address] Performed By: #### 1 9123-9, 2777-1, 21966-6 ####[facility]ORATORYCLIA [id number] [address] NT-proBNP SerPl-[facility]22 Natriuretic peptide.B prohormone N-Terminal [Mass/Vol] 328 pg/mL High <125 [facility] Comment on above: Order Comment: Speci men Type: BLOOD SPECIMENOrdering Facility: [facility] Address: [address] [place] [address] Performed By: #### 1 9123-9, 2777-1, 89120-1 ####[facility] LABORATORYCLIA [id number] [address] [place] NURSING PROGon 07-22-2021 NURSING PROG Normal [facility] NUTRITIONon 07-22-2021 NUTRITION Normal [facility] Phosphate SerPl-[facility]22 Phosphate [Mass/Vol] 3.5 mg/dL Normal 2.7-4.8 [facility] Comment on above: Order Comment: Speci men Type: BLOOD SPECIMENOrdering Facility: [facility] Address: [address] [place] [address] Performed By: #### 1 9123-9, 2777-1, 93388-7 ####[facility]ORATORYCLIA [id number] [address] THERAPY NTon 07-22-2021 THERAPY NT Normal [facility] THERAPY NT Normal [facility] aPTT PPPon 07-22-2021 aPTT Coag (PPP) [Time] 50.1 s High 23.0-32.[address] [place] Comment on above: Order Comment: Speci men Type: BLOOD SPECIMENOrdering Facility: [facility] Address: [address] [place] [address] Performed By: #### 1 4979-9 ####[facility]ORATORYCLIA [id number] [address] [place] ALLIED HEALTHon 07-21-2021 ALLIED HEALTH Normal [facility] Bacteria Spec Resp Culton Bacteria identified Respiratory culture Nom (Unsp spec) Abnormal [facility] Comment on above: Performed By: #### 3 2355-0 ####[facility]ORATORYCLIA [id number] [place] [address] [place] Basic metabolic 2000 panelon 07-21-2021 Anion gap [Moles/Vol] 9 mmol/L Normal 9-18 [facility] Comment on above: Order Comment: Speci men Type: BLOOD SPECIMENOrdering Facility: [facility] Address: [address] [place] [address] Performed By: #### 1 9123-9, 2777-1, 31734-7 ####[facility]ORATORYCLIA [id number] [place] [address] [place] Calcium [Mass/Vol] 9.9 mg/dL Normal 8.5-10.2 [facility] Comment on above: Order Comment: Speci men Type: BLOOD SPECIMENOrdering Facility: [facility] Address: [address] [place] [address] Performed By: #### 1 9123-9, 2777-1, 07189-9 ####[facility]ORATORYCLIA [id number] [place] [address] [place] Chloride [Moles/Vol] 103 mmol/L Normal 97-105 [facility] Comment on above: Order Comment: Speci men Type: BLOOD SPECIMENOrdering Facility: [facility] Address: [address] [place] [address] Performed By: #### 1 9123-9, 2777, 88930-3 ####[facility]ORATORYCLIA [id number] [place] [address] [place] CO2 [Moles/Vol] 33 mmol/L High 22-30 [facility] Comment on above: Order Comment: Speci men Type: BLOOD SPECIMENOrdering Facility: [facility] Address: [address] [place] [address] Performed By: #### 1 9123-9, 2777-1, 82750-4 ####[facility]ORATORYCLIA [id number] [address] [facility] Creatinine [Mass/Vol] 0.80 mg/dL Normal 0.73-1.22 [facility] Comment on above: Order Comment: Shira feldman Type: BLOOD SPECIMENOrdering Facility: [facility] Address: [address] [address] Performed By: #### 1 9123-9, 2777-1, 83396-7 ####[facility]ORATORYCLIA [id number] [address] ESTIMATED GLOMERULAR FILTRATION RATE 96 mL/min/1.73m??? Normal >=60 [facility] Comment on above: Order Comment: Shira feldman Type: BLOOD SPECIMENOrdering Facility: [facility] Address: [address] [place] [address] Result Comment: Luzmaria mated Glomerular Filtration Rate [...] GFR. Performed By: #### 1 9123-9, 2777-1, 73288-0 ####[facility]PITALCLIA [id number] [address] [place] Glucose [Mass/Vol] 148 mg/dL High 74-99 [facility] Comment on above: Order Comment: Shira feldman Type: BLOOD SPECIMENOrdering Facility: [facility] Address: [address] [address] Result Comment: The [place] [employer] (ADA) provides guidance for cutoff [...] Standards of Medical Care in Diabetes 2016, [place] [employer]. Diabetes Care. 2016.39(Suppl 1). Performed By: #### 1 9123-9, 2777-, 58608-0 ####[facility] LABORATORYCLIA [id number] [place] [address] [place] Potassium [Moles/Vol] 4.1 mmol/L Normal 3.7-5.1 [facility] Comment on above: Order Comment: Speci men Type: BLOOD SPECIMENOrdering Facility: [facility] Address: [address] [place] [address] Performed By: #### 1 9123-9, 2777, 54466-0 ####[facility]ORATORYCLIA [id number] [address] STATES [facility] Sodium [Moles/Vol] 145 mmol/L High 136-144 [facility] Comment on above: Order Comment: Speci men Type: BLOOD SPECIMENOrdering Facility: [facility] Address: [address] [place] [address] Performed By: #### 1 9123-9, 27711-04, 15926-0 ####[facility]ORATORYCLIA [id number] [address] STATES [facility] Urea nitrogen [Mass/Vol] 40 mg/dL High 9-24 [facility] Comment on above: Order Comment: Speci men Type: BLOOD SPECIMENOrdering Facility: [facility] Address: [address] [place] [address] Performed By: #### 1 9123-9, 2777, 32590-5 ####[facility]ORATORYCLIA [id number] [address] [place] CBC W Auto Differential pane l (Bld)on 07-21-2021 Basophils (Bld) [#/Vol] 0.06 10*3/uL Normal <0.11 [facility] Comment on above: Order Comment: Speci men Type: BLOOD SPECIMENOrdering Facility: [facility] Address: [address] [address] Performed By: #### 5 7021-8 ####[facility]ATORYCLIA [id number] [address] Basophils/100 WBC (Bld) 0.4 % Normal [facility] Comment on above: Order Comment: Speci men Type: BLOOD SPECIMENOrdering Facility: [facility] Address: [address] [place] [address] Performed By: #### 5 7021-8 ####[facility]ORATORYCLIA [id number] [address] Differential cell count method Nom (Bld) Auto Normal [facility] Comment on above: Order Comment: Speci men Type: BLOOD SPECIMENOrdering Facility: [facility] Address: [address] [place] [address] Performed By: #### 5 7021-8 ####[facility]ORATORYCLIA [id number] [address] [place] Eosinophils (Bld) [#/Vol] 0.04 10*3/uL Normal <0.46 [facility] Comment on above: Order Comment: Speci men Type: BLOOD SPECIMENOrdering Facility: [facility] Address: [address] [place] [address] Performed By: #### 5 7021-8 ####[facility]ATORYCLIA [id number] [address] Eosinophils/100 WBC (Bld) 0.3 % Normal [facility] Comment on above: Order Comment: Speci men Type: BLOOD SPECIMENOrdering Facility: [facility] Address: [address] [place] [address] Performed By: #### 5 7021-8 ####[facility]ATORYCLIA [id number] [address] [place] Erythrocyte distribution width (RBC) [Ratio] 17.0 % High 11.5-15.0 [facility] Comment on above: Order Comment: Speci men Type: BLOOD SPECIMENOrdering Facility: [facility] Address: [address] [place] [address] Performed By: #### 5 7021-8 ####[facility]ORATORYCLIA [id number] [address] Hematocrit (Bld) [Volume fraction] 33.1 % Low 39.0-51.0 [facility] Comment on above: Order Comment: Speci men Type: BLOOD SPECIMENOrdering Facility: [facility] Address: [address] [place] [address] Performed By: #### 5 7021-8 ####[facility]ORATORYCLIA [id number] [address] Hemoglobin (Bld) [Mass/Vol] 9.7 g/dL Low 13.0-17.0 [facility] Comment on above: Order Comment: Speci men Type: BLOOD SPECIMENOrdering Facility: [facility] Address: [address] [place] [address] Performed By: #### 5 7021-8 ####[facility]ORATORYCLIA [id number] [address] IMMATURE GRAN % 0.5 % Normal [facility] Comment on above: Order Comment: Speci men Type: BLOOD SPECIMENOrdering Facility: [facility] Address: [address] [place] [address] Performed By: #### 5 7021-8 ####[facility]ORATORYCLIA [id number] [address] IMMATURE GRAN ABS 0.07 k/uL Normal <0.10 [facility] Comment on above: Order Comment: Speci men Type: BLOOD SPECIMENOrdering Facility: [facility] Address: [address] [place] [address] Performed By: #### 5 7021-8 ####[facility]ORATORYCLIA [id number] [address] Lymphocytes (Bld) [#/Vol] 1.99 10*3/uL Normal 1.00-4.00 [facility] Comment on above: Order Comment: Speci men Type: BLOOD SPECIMENOrdering Facility: [facility] Address: [address] [place] [address] Performed By: #### 5 7021-8 ####[facility]ATORYCLIA [id number] [address] Lymphocytes/100 WBC (Bld) 13.4 % Normal [facility] Comment on above: Order Comment: Speci men Type: BLOOD SPECIMENOrdering Facility: [facility] Address: [address] [place] [address] Performed By: #### 5 7021-8 ####[facility]ORATORYCLIA [id number] [address] STATES OF [facility] MCH (RBC) [Entitic mass] 27.2 pg Normal 26.0-34.0 [facility] Comment on above: Order Comment: Speci men Type: BLOOD SPECIMENOrdering Facility: [facility] Address: [address] [place] [address] Performed By: #### 5 7021-8 ####[facility]ORATORYCLIA [id number] [address] MCHC (RBC) [Mass/Vol] 29.3 g/dL Low 30.5-36.0 [facility] Comment on above: Order Comment: Speci men Type: BLOOD SPECIMENOrdering Facility: [facility] Address: [address] [place] [address] Performed By: #### 5 7021-8 ####[facility]ORATORYCLIA [id number] [address] MCV (RBC) [Entitic vol] 92.7 fL Normal 80.0-100.0 [facility] Comment on above: Order Comment: Speci men Type: BLOOD SPECIMENOrdering Facility: [facility] Address: [address] [place] [address] Performed By: #### 5 7021-8 ####[facility]ORYCLIA [id number] [place] [address] [place] Monocytes (Bld) [#/Vol] 1.10 10*3/uL High <0.87 [facility] Comment on above: Order Comment: Speci men Type: BLOOD SPECIMENOrdering Facility: [facility] Address: [address] [place] [address] Performed By: #### 5 7021-8 ####[facility]ATORYCLIA [id number] [place] [address] [place] Monocytes/100 WBC (Bld) 7.4 % Normal [facility] Comment on above: Order Comment: Speci men Type: BLOOD SPECIMENOrdering Facility: [facility] Address: [address] [place] [address] Performed By: #### 5 7021-8 ####[facility]ORATORYCLIA [id number] [place] [address] [place] Neutrophils (Bld) [#/Vol] 11.61 10*3/uL High 1.45-7.50 [facility] Comment on above: Order Comment: Speci men Type: BLOOD SPECIMENOrdering Facility: [facility] Address: [address] [place] [address] Performed By: #### 5 7021-8 ####[facility]ORATORYCLIA [id number] [address] [place] Neutrophils/100 WBC (Bld) 78.0 % Normal [facility] Comment on above: Order Comment: Speci men Type: BLOOD SPECIMENOrdering Facility: [facility] Address: [address] [place] [address] Performed By: #### 5 7021-8 ####[facility]ATORYCLIA [id number] [place] [address] [place] Nucleated RBC (Bld) [#/Vol] 10*3/uL Normal <0.01 [facility] Comment on above: Order Comment: Speci men Type: BLOOD SPECIMENOrdering Facility: [facility] Address: [address] Performed By: #### 5 7021-8 ####[facility] LABORATORYCLIA [id number] [address] [place] [facility] Nucleated RBC/100 WBC (Bld) [Ratio] 0.0 /100 WBC Normal [facility] Comment on above: Order Comment: Speci men Type: BLOOD SPECIMENOrdering Facility: [facility] Address: [address] [place] [address] Performed By: #### 5 7021-8 ####[facility] LABORATORYCLIA [id number] [address] [place] Platelet mean volume (Bld) [Entitic vol] 10.4 fL Normal 9.0-12.7 [facility] Comment on above: Order Comment: Speci men Type: BLOOD SPECIMENOrdering Facility: [facility] Address: [address] [place] [address] Performed By: #### 5 7021-8 ####[facility] LABORATORYCLIA [id number] [address] [place] Platelets (Bld) [#/Vol] 396 10*3/uL Normal 150-400 [facility] Comment on above: Order Comment: Speci men Type: BLOOD SPECIMENOrdering Facility: [facility] Address: [address] [place] [address] Performed By: #### 5 7021-8 ####[facility] LABORATORYCLIA [id number] [place] [address] [place] RBC (Bld) [#/Vol] 3.57 10*6/uL Low 4.20-6.00 [facility] Comment on above: Order Comment: Speci men Type: BLOOD SPECIMENOrdering Facility: [facility] Address: [address] [place] [address] Performed By: #### 5 7021-8 ####[facility] LABORATORYCLIA [id number] [place] [address] [place] WBC (Bld) [#/Vol] 14.87 10*3/uL High 3.70-11.00 [facility] Comment on above: Order Comment: Speci men Type: BLOOD SPECIMENOrdering Facility: [facility] Address: [address] [place] [address] Performed By: #### 5 7021-8 ####[facility] LABORATORYCLIA [id number] [address] OF [facility] Gas and Carbon monoxide pane l (BldV)on 07-21-2021 Base excess Calc (BldV) [Moles/Vol] 7 mmol/L High 0-2 [facility] Comment on above: Order Comment: Speci men Type: VENOUS BLOOD SPECIMENOrdering Facility: [facility] Address: [address] [place] [address] Performed By: #### 2 4344-4 ####[facility] LABORATORYCLIA [id number] [address] STATES [facility] Body temperature 98.6 [degF] Normal [facility] Comment on above: Order Comment: Speci men Type: VENOUS BLOOD SPECIMENOrdering Facility: [facility] Address: [address] [place] [address] Performed By: #### 2 4344-4 ####[facility] LABORATORYCLIA [id number] [address] STATES OF [facility] CALCIUM IONIZED, PH CORRECTED 1.21 mmol/L Normal 1.08-1.30 [facility] Comment on above: Order Comment: Speci men Type: VENOUS BLOOD SPECIMENOrdering Facility: [facility] Address: [address] [place] [address] Performed By: #### 2 4344-4 ####[facility] LABORATORYCLIA [id number] [address] Calcium.ionized (BldV) [Mass/Vol] 1.23 mmol/L Normal 1.08-1.30 [facility] Comment on above: Order Comment: Speci men Type: VENOUS BLOOD SPECIMENOrdering Facility: [facility] Address: [address] [place] [address] Performed By: #### 2 4344-4 ####[facility] LABORATORYCLIA [id number] [address] Carboxyhemoglobin (BldV) [Mass fraction] 2.3 % High 0.0-2.0 [facility] Comment on above: Order Comment: Speci men Type: VENOUS BLOOD SPECIMENOrdering Facility: [facility] Address: [address] [place] [address] Result Comment: Carb oxyhemoglobin Reference Range for Smokers: 2.0-8.0% Performed By: #### 2 4344-4 ####[facility] LABORATORYCLIA [id number] [address] CO2 (BldV) [Partial pressure] 58 mm[Hg] High 42-55 [facility] Comment on above: Order Comment: Speci men Type: VENOUS BLOOD SPECIMENOrdering Facility: [facility] Address: [address] [place] [address] Performed By: #### 2 4344-4 ####[facility] LABORATORYCLIA [id number] [address] CO2 [Moles/Vol] 31 mmol/L High 25-29 [facility] Comment on above: Order Comment: Speci men Type: VENOUS BLOOD SPECIMENOrdering Facility: [facility] Address: [address] [place] [address] Performed By: #### 2 4344-4 ####[facility] LABORATORYCLIA [id number] [address] [place] Glucose [Mass/Vol] 146 mg/dL High 60-105 [facility] Comment on above: Order Comment: Speci men Type: VENOUS BLOOD SPECIMENOrdering Facility: [facility] Address: [address] [place] [address] Performed By: #### 2 4344-4 ####[facility] LABORATORYCLIA [id number] [address] OF [place] HCO3 (Bld) [Moles/Vol] 33 mmol/L High 24-28 [place] Comment on above: Order Comment: Speci men Type: VENOUS BLOOD SPECIMENOrdering Facility: [facility] Address: [address] [place] [address] Performed By: #### 2 4344-4 ####[facility] LABORATORYCLIA [id number] [address] [place] Hematocrit (Bld) [Volume fraction] 30.1 % Low 39.0-51.0 [facility] Comment on above: Order Comment: Speci men Type: VENOUS BLOOD SPECIMENOrdering Facility: [facility] Address: [address] [place] [address] Performed By: #### 2 4344-4 ####[facility] LABORATORYCLIA [id number] [address] [place] Hemoglobin (Bld) [Mass/Vol] 9.7 g/dL Low 13.0-17.0 [facility] Comment on above: Order Comment: Speci men Type: VENOUS BLOOD SPECIMENOrdering Facility: [facility] Address: [address] [place] [address] Performed By: #### 2 4344-4 ####[facility] LABORATORYCLIA [id number] [address] [place] Methemoglobin (Bld) [Mass fraction] % Normal 0.0-1.5 [facility] Comment on above: Order Comment: Speci men Type: VENOUS BLOOD SPECIMENOrdering Facility: [facility] Address: [address] [place] [address] Performed By: #### 2 4344-4 ####[facility] LABORATORYCLIA [id number] [address] O2 THERAPY NC = Nasal Cannula Normal [facility] Comment on above: Order Comment: Speci men Type: VENOUS BLOOD SPECIMENOrdering Facility: [facility] Address: [address] [place] [address] Performed By: #### 2 4344-4 ####[facility]ORATORYCLIA [id number] [address] [place] Oxygen (BldV) [Partial pressure] 64 mm[Hg] High 35-45 [facility] Comment on above: Order Comment: Speci men Type: VENOUS BLOOD SPECIMENOrdering Facility: [facility] Address: [address] [place] [address] Performed By: #### 2 4344-4 ####[facility] LABORATORYCLIA [id number] [address] [place] Oxygen saturation in Blood 90 % High 60-85 [facility] Comment on above: Order Comment: Speci men Type: VENOUS BLOOD SPECIMENOrdering Facility: [facility] Address: [address] [place] [address] Performed By: #### 2 4344-4 ####[facility] LABORATORYCLIA [id number] [address] [place] Oxyhemoglobin (BldV) [Mass fraction] 87 % High 60-85 [facility] Comment on above: Order Comment: Speci men Type: VENOUS BLOOD SPECIMENOrdering Facility: [facility] Address: [address] [place] [address] Performed By: #### 2 4344-4 ####[facility]ORATORYCLIA [id number] [place] [address] [place] pH (BldV) 7.38 [pH] Normal 7.32-7.42 [facility] Comment on above: Order Comment: Speci men Type: VENOUS BLOOD SPECIMENOrdering Facility: [facility] Address: [address] [place] [address] Performed By: #### 2 4344-4 ####[facility] LABORATORYCLIA [id number] [address] [place] Potassium [Moles/Vol] 3.8 mmol/L Normal 3.5-5.0 [facility] Comment on above: Order Comment: Speci men Type: VENOUS BLOOD SPECIMENOrdering Facility: [facility] Address: [address] [address] Performed By: #### 2 4344-4 ####[facility] LABORATORYCLIA [id number] [address] [place] Sodium [Moles/Vol] 145 mmol/L High 136-144 [facility] Comment on above: Order Comment: Speci men Type: VENOUS BLOOD SPECIMENOrdering Facility: [facility] Address: [address] [place] [address] Performed By: #### 2 4344-4 ####[facility] LABORATORYCLIA [id number] [address] [place] Base excess Calc (BldV) [Moles/Vol] 8 mmol/L High 0-2 [facility] Comment on above: Order Comment: Speci men Type: VENOUS BLOOD SPECIMENOrdering Facility: [facility] Address: [address] [place] [address] Performed By: #### 2 4344-4 ####[facility] LABORATORYCLIA [id number] [address] [place] Body temperature 100.22 [degF] Normal [facility] Comment on above: Order Comment: Speci men Type: VENOUS BLOOD SPECIMENOrdering Facility: [facility] Address: [address] [place] [address] Performed By: #### 2 4344-4 ####[facility] LABORATORYCLIA [id number] [place] [address] [place] CALCIUM IONIZED, PH CORRECTED 1.25 mmol/L Normal 1.08-1.30 [facility] Comment on above: Order Comment: Speci men Type: VENOUS BLOOD SPECIMENOrdering Facility: [facility] Address: [address] [place] [address] Performed By: #### 2 4344-4 ####[facility] LABORATORYCLIA [id number] [address] [place] Calcium.ionized (BldV) [Mass/Vol] 1.24 mmol/L Normal 1.08-1.30 [facility] Comment on above: Order Comment: Speci men Type: VENOUS BLOOD SPECIMENOrdering Facility: [facility] Address: [address] [address] Performed By: #### 2 4344-4 ####[facility]ORATORYCLIA [id number] [address] OF [place] Carboxyhemoglobin (BldV) [Mass fraction] 2.5 % High 0.0-2.0 [facility] Comment on above: Order Comment: Speci men Type: VENOUS BLOOD SPECIMENOrdering Facility: [facility] Address: [address] [place] [address] Result Comment: Carb oxyhemoglobin Reference Range for Smokers: 2.0-8.0% Performed By: #### 2 4344-4 ####[facility] LABORATORYCLIA [id number] [address] [place] CO2 (BldV) [Partial pressure] 53 mm[Hg] Normal 42-55 [facility] Comment on above: Order Comment: Speci men Type: VENOUS BLOOD SPECIMENOrdering Facility: [facility] Address: [address] [place] [address] Performed By: #### 2 4344-4 ####[facility]ORATORYCLIA [id number] [address] [place] CO2 [Moles/Vol] 31 mmol/L High 25-29 [facility] Comment on above: Order Comment: Speci men Type: VENOUS BLOOD SPECIMENOrdering Facility: [facility] Address: [address] [address] Performed By: #### 2 4344-4 ####[facility] LABORATORYCLIA [id number] [address] [place] CO2 adjusted to patient's actual temperature (BldV) [Partial pressure] 56 mmHg High 42-55 [facility] Comment on above: Order Comment: Speci men Type: VENOUS BLOOD SPECIMENOrdering Facility: [facility] Address: [address] [address] Performed By: #### 2 4344-4 ####[facility] LABORATORYCLIA [id number] [address] [place] Glucose [Mass/Vol] 131 mg/dL High 60-105 [facility] Comment on above: Order Comment: Speci men Type: VENOUS BLOOD SPECIMENOrdering Facility: [facility] Address: [address] [place] [address] Performed By: #### 2 4344-4 ####[facility] LABORATORYCLIA [id number] [place] [address] [place] HCO3 (Bld) [Moles/Vol] 33 mmol/L High 24-28 [place] Comment on above: Order Comment: Speci men Type: VENOUS BLOOD SPECIMENOrdering Facility: [facility] Address: [address] [place] [address] Performed By: #### 2 4344-4 ####[facility] LABORATORYCLIA [id number] [address] OF [facility] Hematocrit (Bld) [Volume fraction] 30.8 % Low 39.0-51.0 [facility] Comment on above: Order Comment: Speci men Type: VENOUS BLOOD SPECIMENOrdering Facility: [facility] Address: [address] [place] [address] Performed By: #### 2 4344-4 ####[facility]ORATORYCLIA [id number] [address] [place] Hemoglobin (Bld) [Mass/Vol] 10.0 g/dL Low 13.0-17.0 [facility] Comment on above: Order Comment: Speci men Type: VENOUS BLOOD SPECIMENOrdering Facility: [facility] Address: [address] [place] [address] Performed By: #### 2 4344-4 ####[facility]ORATORYCLIA [id number] [address] [place] Methemoglobin (Bld) [Mass fraction] % Normal 0.0-1.5 [facility] Comment on above: Order Comment: Speci men Type: VENOUS BLOOD SPECIMENOrdering Facility: [facility] Address: [address] [place] [address] Performed By: #### 2 4344-4 ####[facility] LABORATORYCLIA [id number] [address] O2 THERAPY NC = Nasal Cannula Normal [facility] Comment on above: Order Comment: Speci men Type: VENOUS BLOOD SPECIMENOrdering Facility: [facility] Address: [address] [place] [address] Performed By: #### 2 4344-4 ####[facility]ORATORYCLIA [id number] [address] [place] Oxygen (BldV) [Partial pressure] 58 mm[Hg] High 35-45 [facility] Comment on above: Order Comment: Speci men Type: VENOUS BLOOD SPECIMENOrdering Facility: [facility] Address: [address] [place] [address] Performed By: #### 2 4344-4 ####[facility]ORATORYCLIA [id number] [address] Oxygen adjusted to patient's actual temperature (BldV) [Partial pressure] 61 mmHg High 35-45 [facility] Comment on above: Order Comment: Speci men Type: VENOUS BLOOD SPECIMENOrdering Facility: [facility] Address: [address] [place] [address] Performed By: #### 2 4344-4 ####[facility] LABORATORYCLIA [id number] [address] [place] Oxygen saturation in Blood 88 % High 60-85 [facility] Comment on above: Order Comment: Speci men Type: VENOUS BLOOD SPECIMENOrdering Facility: [facility] Address: [address] [place] [address] Performed By: #### 2 4344-4 ####[facility] LABORATORYCLIA [id number] [address] [place] Oxyhemoglobin (BldV) [Mass fraction] 85 % Normal 60-85 [facility] Comment on above: Order Comment: Speci men Type: VENOUS BLOOD SPECIMENOrdering Facility: [facility] Address: [address] [place] [address] Performed By: #### 2 4344-4 ####[facility] LABORATORYCLIA [id number] [address] [place] pH (BldV) 7.41 [pH] Normal 7.32-7.42 [facility] Comment on above: Order Comment: Speci men Type: VENOUS BLOOD SPECIMENOrdering Facility: [facility] Address: [address] [place] [address] Performed By: #### 2 4344-4 ####[facility]ORATORYCLIA [id number] [address] pH adjusted to patient's actual temperature (BldV) 7.40 Normal 7.32-7.42 [facility] Comment on above: Order Comment: Speci men Type: VENOUS BLOOD SPECIMENOrdering Facility: [facility] Address: [address] [place] [address] Performed By: #### 2 4344-4 ####[facility]ORATORYCLIA [id number] [place] [address] [place] Potassium [Moles/Vol] 4.0 mmol/L Normal 3.5-5.0 [facility] Comment on above: Order Comment: Speci men Type: VENOUS BLOOD SPECIMENOrdering Facility: [facility] Address: [address] [place] [address] Performed By: #### 2 4344-4 ####[facility]ATORYCLIA [id number] [address] [place] Sodium [Moles/Vol] 146 mmol/L High 136-144 [facility] Comment on above: Order Comment: Speci men Type: VENOUS BLOOD SPECIMENOrdering Facility: [facility] Address: [address] [place] [address] Performed By: #### 2 4344-4 ####[facility]ORATORYCLIA [id number] [address] Magnesium [facility]Pl[facility]21 Magnesium [Mass/Vol] 2.5 mg/dL High 1.7-2.3 [facility] Comment on above: Order Comment: Speci men Type: BLOOD SPECIMENOrdering Facility: [facility] Address: [address] [place] [address] Performed By: #### 1 9123-9, 2777-1, 43977-1 ####[facility]ORATORYCLIA [id number] [address] OF [facility] NURSING PROGon 07-21-2021 NURSING PROG Normal [facility] Phosphate SerPl[facility] 07-21 Phosphate [Mass/Vol] 3.7 mg/dL Normal 2.7-4.8 [facility] Comment on above: Order Comment: Speci men Type: BLOOD SPECIMENOrdering Facility: [facility] Address: [address] [place] [address] Performed By: #### 1 9123-9, 2777-1, 14230-4 ####[facility]ORATORYCLIA [id number] [address] THERAPY NTon 07-21-2021 THERAPY NT Normal [facility] XR CHEST 1V FRONTALon 2021 XR CHEST 1V FRONTAL Normal [facility] aPTT PPPon 07-21-2021 aPTT Coag (PPP) [Time] 53.0 s High 23.0-32.4 [place] Comment on above: Order Comment: Speci men Type: BLOOD SPECIMENOrdering Facility: [facility] Address: [address] [place] [address] Performed By: #### 1 4979-9 ####[facility]ORATORYCLIA [id number] [address] [place] ALLIED HEALTHon 07-20-2021 ALLIED HEALTH Normal [facility] Basic metabolic 2000 panelon 07-20-2021 Anion gap [Moles/Vol] 8 mmol/L Low 9-18 [facility] Comment on above: Order Comment: Speci men Type: BLOOD SPECIMENOrdering Facility: [facility] Address: [address] [place] [address] Performed By: #### 2 4321-2, , 2776-05 ####[facility]ORATORYCLIA [id number] [place] [address] [place] Calcium [Mass/Vol] 9.7 mg/dL Normal 8.5-10.2 [facility] Comment on above: Order Comment: Speci men Type: BLOOD SPECIMENOrdering Facility: [facility] Address: [address] [place] [address] Performed By: #### 2 4321-2, , 2776-05 ####[facility]ORATORYCLIA [id number] [place] [address] [place] Chloride [Moles/Vol] 104 mmol/L Normal 97-105 [facility] Comment on above: Order Comment: Speci men Type: BLOOD SPECIMENOrdering Facility: [facility] Address: [address] [place] [address] Performed By: #### 2 4321-2, , 2776-05 ####[facility]ORATORYCLIA [id number] [place] [address] [place] CO2 [Moles/Vol] 34 mmol/L High 22-30 [facility] Comment on above: Order Comment: Speci men Type: BLOOD SPECIMENOrdering Facility: [facility] Address: [address] [place] [address] Performed By: #### 2 4321-2, , 2776-05 ####[facility]ORATORYCLIA [id number] [place] [address] [place] Creatinine [Mass/Vol] 0.76 mg/dL Normal 0.73-1.22 [facility] Comment on above: Order Comment: Speci men Type: BLOOD SPECIMENOrdering Facility: [facility] Address: [address] [place] [address] Performed By: #### 2 4321-2, , 2776-05 ####[facility]ORATORYCLIA [id number] [address] [place] ESTIMATED GLOMERULAR FILTRATION RATE 97 mL/min/1.73m??? Normal >=60 [facility] Comment on above: Order Comment: Shira feldman Type: BLOOD SPECIMENOrdering Facility: [facility] Address: [address] [place] [address] Result Comment: Luzmaria mated Glomerular Filtration Rate [...] #### 2 4321-2, , 2776-05 ####[facility]ORATORYCLIA [id number] [place] [address] [place] Glucose [Mass/Vol] 123 mg/dL High 74-99 [facility] Comment on above: Order Comment: Shira feldman Type: BLOOD SPECIMENOrdering Facility: [facility] Address: [address] [place] [address] Result Comment: The [place] [employer] (ADA) provides guidance for cutoff [...] Standards of Medical Care in Diabetes 2016, [place] [employer]. Diabetes Care. 2016.39(Suppl 1). Performed By: #### 2 4321-2, , 2776-05 ####[facility] LABORATORYCLIA [id number] [place] [address] [place] Potassium [Moles/Vol] 4.4 mmol/L Normal 3.7-5.1 [facility] Comment on above: Order Comment: Speci men Type: BLOOD SPECIMENOrdering Facility: [facility] Address: [address] [place] [address] Performed By: #### 2 4321-2, , 2776-05 ####[facility]ORATORYCLIA [id number] [address] [place] Sodium [Moles/Vol] 146 mmol/L High 136-144 [facility] Comment on above: Order Comment: Speci men Type: BLOOD SPECIMENOrdering Facility: [facility] Address: [address] [place] [address] Performed By: #### 2 432-2, , 2776-05 ####[facility]ORATORYCLIA [id number] [address] STATES OF [facility] Urea nitrogen [Mass/Vol] 38 mg/dL High 9-24 [facility] Comment on above: Order Comment: Speci men Type: BLOOD SPECIMENOrdering Facility: [facility] Address: [address] [place] [address] Performed By: #### 2 4321-2, , 2776-05 ####[facility]ORATORYCLIA [id number] [address] [place] CASE MANAGEMon 07-20-2021 CASE MANAGEM Normal [facility] CBC W Auto Differential pane l (Bld)on 07-20-2021 Basophils (Bld) [#/Vol] 0.05 10*3/uL Normal <0.11 [facility] Comment on above: Order Comment: Speci men Type: BLOOD SPECIMENOrdering Facility: [facility] Address: [address] [place] [address] Performed By: #### 5 7021-8 ####[facility]ORATORYCLIA [id number] [address] [place] Basophils/100 WBC (Bld) 0.5 % Normal [facility] Comment on above: Order Comment: Speci men Type: BLOOD SPECIMENOrdering Facility: [facility] Address: [address] [place] [address] Performed By: #### 5 7021-8 ####[facility] LABORATORYCLIA [id number] [address] [place] Differential cell count method Nom (Bld) Auto Normal [facility] Comment on above: Order Comment: Speci men Type: BLOOD SPECIMENOrdering Facility: [facility] Address: [address] [place] [address] Performed By: #### 5 7021-8 ####[facility] LABORATORYCLIA [id number] [address] [place] Eosinophils (Bld) [#/Vol] 0.43 10*3/uL Normal <0.46 [facility] Comment on above: Order Comment: Speci men Type: BLOOD SPECIMENOrdering Facility: [facility] Address: [address] [place] [address] Performed By: #### 5 7021-8 ####[facility] LABORATORYCLIA [id number] [address] Eosinophils/100 WBC (Bld) 4.1 % Normal [facility] Comment on above: Order Comment: Speci men Type: BLOOD SPECIMENOrdering Facility: [facility] Address: [address] [place] [address] Performed By: #### 5 7021-8 ####[facility] LABORATORYCLIA [id number] [address] [place] Erythrocyte distribution width (RBC) [Ratio] 16.7 % High 11.5-15.0 [facility] Comment on above: Order Comment: Speci men Type: BLOOD SPECIMENOrdering Facility: [facility] Address: [address] [place] [address] Performed By: #### 5 7021-8 ####[facility] LABORATORYCLIA [id number] [address] Hematocrit (Bld) [Volume fraction] 33.0 % Low 39.0-51.0 [facility] Comment on above: Order Comment: Speci men Type: BLOOD SPECIMENOrdering Facility: [facility] Address: [address] [place] [address] Performed By: #### 5 7021-8 ####[facility] LABORATORYCLIA [id number] [address] Hemoglobin (Bld) [Mass/Vol] 9.7 g/dL Low 13.0-17.0 [facility] Comment on above: Order Comment: Speci men Type: BLOOD SPECIMENOrdering Facility: [facility] Address: [address] [place] [address] Performed By: #### 5 7021-8 ####[facility] LABORATORYCLIA [id number] [address] IMMATURE GRAN % 0.4 % Normal [facility] Comment on above: Order Comment: Speci men Type: BLOOD SPECIMENOrdering Facility: [facility] Address: [address] [place] [address] Performed By: #### 5 7021-8 ####[facility] LABORATORYCLIA [id number] [address] IMMATURE GRAN ABS 0.04 k/uL Normal <0.10 [facility] Comment on above: Order Comment: Speci men Type: BLOOD SPECIMENOrdering Facility: [facility] Address: [address] [place] [address] Performed By: #### 5 7021-8 ####[facility] LABORATORYCLIA [id number] [address] Lymphocytes (Bld) [#/Vol] 1.99 10*3/uL Normal 1.00-4.00 [facility] Comment on above: Order Comment: Speci men Type: BLOOD SPECIMENOrdering Facility: [facility] Address: [address] [place] [address] Performed By: #### 5 7021-8 ####[facility] LABORATORYCLIA [id number] [address] Lymphocytes/100 WBC (Bld) 18.8 % Normal [facility] Comment on above: Order Comment: Speci men Type: BLOOD SPECIMENOrdering Facility: [facility] Address: [address] [place] [address] Performed By: #### 5 7021-8 ####[facility] LABORATORYCLIA [id number] [address] MCH (RBC) [Entitic mass] 27.8 pg Normal 26.0-34.0 [facility] Comment on above: Order Comment: Speci men Type: BLOOD SPECIMENOrdering Facility: [facility] Address: [address] [place] [address] Performed By: #### 5 7021-8 ####[facility] LABORATORYCLIA [id number] [address] [place] [facility] MCHC (RBC) [Mass/Vol] 29.4 g/dL Low 30.5-36.0 [facility] Comment on above: Order Comment: Speci men Type: BLOOD SPECIMENOrdering Facility: [facility] Address: [address] [place] [address] Performed By: #### 5 7021-8 ####[facility] LABORATORYCLIA [id number] [address] MCV (RBC) [Entitic vol] 94.6 fL Normal 80.0-100.0 [facility] Comment on above: Order Comment: Speci men Type: BLOOD SPECIMENOrdering Facility: [facility] Address: [address] [place] [address] Performed By: #### 5 7021-8 ####[facility] LABORATORYCLIA [id number] [address] Monocytes (Bld) [#/Vol] 0.82 10*3/uL Normal <0.87 [facility] Comment on above: Order Comment: Speci men Type: BLOOD SPECIMENOrdering Facility: [facility] Address: [address] [address] Performed By: #### 5 7021-8 ####[facility] LABORATORYCLIA [id number] [address] [place] Monocytes/100 WBC (Bld) 7.8 % Normal [facility] Comment on above: Order Comment: Speci men Type: BLOOD SPECIMENOrdering Facility: [facility] Address: [address] [place] [address] Performed By: #### 5 7021-8 ####[facility] LABORATORYCLIA [id number] [address] [place] Neutrophils (Bld) [#/Vol] 7.23 10*3/uL Normal 1.45-7.50 [facility] Comment on above: Order Comment: Speci men Type: BLOOD SPECIMENOrdering Facility: [facility] Address: [address] [place] [address] Performed By: #### 5 7021-8 ####[facility] LABORATORYCLIA [id number] [address] [place] Neutrophils/100 WBC (Bld) 68.4 % Normal [facility] Comment on above: Order Comment: Speci men Type: BLOOD SPECIMENOrdering Facility: [facility] Address: [address] [address] Performed By: #### 5 7021-8 ####[facility] LABORATORYCLIA [id number] [place] [address] [place] Nucleated RBC (Bld) [#/Vol] 10*3/uL Normal <0.01 [facility] Comment on above: Order Comment: Speci men Type: BLOOD SPECIMENOrdering Facility: [facility] Address: [address] [place] [address] Performed By: #### 5 7021-8 ####[facility] LABORATORYCLIA [id number] [address] OF [place] Nucleated RBC/100 WBC (Bld) [Ratio] 0.0 /100 WBC Normal [facility] Comment on above: Order Comment: Speci men Type: BLOOD SPECIMENOrdering Facility: [facility] Address: [address] [place] [address] Performed By: #### 5 7021-8 ####[facility] LABORATORYCLIA [id number] [address] [place] Platelet mean volume (Bld) [Entitic vol] 10.5 fL Normal 9.0-12.7 [facility] Comment on above: Order Comment: Speci men Type: BLOOD SPECIMENOrdering Facility: [facility] Address: [address] [place] [address] Performed By: #### 5 7021-8 ####[facility] LABORATORYCLIA [id number] [address] [place] Platelets (Bld) [#/Vol] 400 10*3/uL Normal 150-400 [facility] Comment on above: Order Comment: Speci men Type: BLOOD SPECIMENOrdering Facility: [facility] Address: [address] [place] [address] Performed By: #### 5 7021-8 ####[facility] LABORATORYCLIA [id number] [address] [place] RBC (Bld) [#/Vol] 3.49 10*6/uL Low 4.20-6.00 [facility] Comment on above: Order Comment: Speci men Type: BLOOD SPECIMENOrdering Facility: [facility] Address: [address] [place] [address] Performed By: #### 5 7021-8 ####[facility] LABORATORYCLIA [id number] [address] [place] WBC (Bld) [#/Vol] 10.56 10*3/uL Normal 3.70-11.00 [facility] Comment on above: Order Comment: Speci men Type: BLOOD SPECIMENOrdering Facility: [facility] Address: [address] [place] [address] Performed By: #### 5 7021-8 ####[facility] LABORATORYCLIA [id number] [address] OF [facility] CONSULT PROGon 07-20-2021 CONSULT PROG Normal [facility] CT BRAIN WO IVCONon 07-21-[address] BRAIN WO IVCON Normal [facility] Magnesium SerPl-mCncon 07-20 Magnesium [Mass/Vol] 2.4 mg/dL High 1.7-2.3 [facility] Comment on above: Order Comment: Speci men Type: BLOOD SPECIMENOrdering Facility: [facility] Address: [address] [place] [address] Performed By: #### 2 4321-2, 02217-0, 2777-1 ####[facility] LABORATORYCLIA [id number] [address] [place] NUTRITIONon 07-20-2021 NUTRITION Normal [facility] Phosphate SerPl-mCncon 07-20 Phosphate [Mass/Vol] 4.1 mg/dL Normal 2.7-4.8 [facility] Comment on above: Order Comment: Speci men Type: BLOOD SPECIMENOrdering Facility: [facility] Address: [address] [place] [address] Performed By: #### 2 4321-2, 72282-5, 2777- ####[facility] LABORATORYCLIA [id number] [address] [place] aPTT PPPon 07-20-2021 aPTT Coag (PPP) [Time] 53.6 s High 23.0-32.[address] [place] Comment on above: Order Comment: Speci men Type: BLOOD SPECIMENOrdering Facility: [facility] Address: [address] [place] [address] Performed By: #### 1 4979-9 ####[facility] LABORATORYCLIA [id number] [place] [address] [place] Bacteria CSF Culton 07-20-19 22 Bacteria identified Cx Nom (CSF) CULTURE, CSF: No growth 14 days GRAM STAIN: No organisms seen No Polymorphonuclear Leukocytes Rare Mononuclear cells Gram stain performed on cytospun specimen. Normal [facility] Comment on above: Performed By: #### 6 06-4 ####[facility] LABORATORYCLIA [id number] [place] [address] [place] CONSULT PROGon 07-19-2021 CONSULT PROG Normal [facility] CSF MANUAL DIFFon 07-19-2021 DIF TTL, CSF 100 cells counted Normal [facility] Comment on above: Order Comment: Speci men Type: CEREBROSPINAL FLUIDOrdering Facility: [facility] Address: [address] [place] [address] Performed By: #### L [id number], 30336-4, [id number] ####[facility] LABORATORYCLIA [id number] [place] [address] [place] EOSIN%, CSF 1 % Normal [facility] Comment on above: Order Comment: Speci men Type: CEREBROSPINAL FLUIDOrdering Facility: [facility] Address: [address] [place] [address] Performed By: #### L [id number], 87204-3, [id number] ####[facility] LABORATORYCLIA [id number] [place] [address] [place] LYMPH%, CSF 67 % Normal 50-90 [facility] Comment on above: Order Comment: Speci men Type: CEREBROSPINAL FLUIDOrdering Facility: [facility] Address: [address] [place] [address] Performed By: #### L [id number], 47680-4, [id number] ####[facility] LABORATORYCLIA [id number] [place] [address] [place] MACRO%, CSF 1 % High <1 [facility] Comment on above: Order Comment: Speci men Type: CEREBROSPINAL FLUIDOrdering Facility: [facility] Address: [address] [place], [place] [address] Performed By: #### L GY1466, 94976-3, [id number] ####[facility] LABORATORYCLIA [id number] [address] [place] MONO%, CSF 18 % Normal 10-50 [facility] Comment on above: Order Comment: Speci men Type: CEREBROSPINAL FLUIDOrdering Facility: [facility] Address: [address] [place] [address] Performed By: #### L VM0606, 80873-2, [id number] ####[facility] LABORATORYCLIA [id number] [place] [address] [place] NEUT%, CSF 11 % High 0-3 [facility] Comment on above: Order Comment: Speci men Type: CEREBROSPINAL FLUIDOrdering Facility: [facility] Address: [address] [place] [address] Performed By: #### L VB3840, 83080-3, [id number] ####[facility] LABORATORYCLIA [id number] [address] OTHER CL%, CSF 2 % Normal [facility] Comment on above: Order Comment: Speci men Type: CEREBROSPINAL FLUIDOrdering Facility: [facility] Address: [address] [place] [address] Result Comment: Path review to follow. Performed By: #### L [id number], 51094-4, [id number] ####[facility] LABORATORYCLIA [id number] [address] CSF PATHOLOGIST INTERP (LAB REFLEX ORDER-NO BILL)on 07-19-2021 CSF STAFF REVIEW Normal [facility] Comment on above: Order Comment: Speci men Type: CEREBROSPINAL FLUIDOrdering Facility: [facility] Address: [address] [place] [address] Performed By: #### L [id number], 58187-2, [id number] ####[facility] LABORATORYCLIA [id number] [address] Pathologist name Reviewed by Wing Cummings MD Normal [facility] Comment on above: Order Comment: Speci men Type: CEREBROSPINAL FLUIDOrdering Facility: [facility] Address: [address] [place] [address] Performed By: #### L DE3838, 23701-6, [id number] ####[facility] LABORATORYCLIA [id number] [address] Cell count panel (CSF)on Clarity (CSF) Clear Normal Clear [facility] Comment on above: Order Comment: Speci men Type: CEREBROSPINAL FLUIDOrdering Facility: [facility] Address: [address] [place] [address] Performed By: #### L EJ0600, 71847-8, [id number] ####[facility] LABORATORYCLIA [id number] [address] Clarity (Unsp spec) Not Indicated Normal Clear [place] Comment on above: Order Comment: Speci men Type: CEREBROSPINAL FLUIDOrdering Facility: [facility] Address: [address] [place] [address] Performed By: #### L GN0393, 31430-4, [id number] ####[facility] LABORATORYCLIA [id number] [address] Color (CSF) Colorless Normal Colorless [facility] Comment on above: Order Comment: Speci men Type: CEREBROSPINAL FLUIDOrdering Facility: [facility] Address: [address] [place] [address] Performed By: #### L [id number], 50058-3, [id number] ####[facility] LABORATORYCLIA [id number] [address] Color (Spun CSF) Not Indicated Normal Colorless [facility] Comment on above: Order Comment: Speci men Type: CEREBROSPINAL FLUIDOrdering Facility: [facility] Address: [address] [place] [address] Performed By: #### L QU2492, 74618-5, [id number] ####[facility] LABORATORYCLIA [id number] [address] CSF TUBE [employer]BER [employer] Normal [place] Comment on above: Order Comment: Speci men Type: CEREBROSPINAL FLUIDOrdering Facility: [facility] Address: [address] [place] [address] Performed By: #### L GQ6431, 36664-6, [id number] ####[facility] LABORATORYCLIA [id number] [address] RBC Manual cnt (CSF) [#/Vol] 0 cells/uL Normal 0-5 [facility] Comment on above: Order Comment: Speci men Type: CEREBROSPINAL FLUIDOrdering Facility: [facility] Address: [address] [place] [address] Performed By: #### L MB0675, 73432-1, [id number] ####[facility] LABORATORYCLIA [id number] [address] WBC Manual cnt (CSF) [#/Vol] 2 cells/uL Normal 0-5 [facility] Comment on above: Order Comment: Speci men Type: CEREBROSPINAL FLUIDOrdering Facility: [facility] Address: [address] [place] [address] Performed By: #### L UF9637, 75884-3, [id number] ####[facility] LABORATORYCLIA [id number] [address] Glucose CSF-mCncon 2 Glucose (CSF) [Mass/Vol] 69 mg/dL Normal 40-70 [facility] Comment on above: Order Comment: Speci men Type: CEREBROSPINAL FLUIDOrdering Facility: [facility] Address: [address] [place] [address] Result Comment: Lumb ar CSF glucose values of healthy patients are approximately 60% of the plasma values and must always be compared with a concurrently measured plasma value for adequate clinical interpretation.References: 1. Glucose HK (GLUC3) [package insert V 12.0 [place]]. [employer], [place], [place]. September 2015. 2. Michelle Moore Hegen, H. (2015). Chapter 7: Glucose and Lactate. F. Irina rose al.(eds.), Cerebrospinal Fluid in Clinical Neurology. [place]: [employer]. Performed By: #### 2 342-4, 2880-3 ####[facility] LABORATORYCLIA [id number] [address] OF [facility] NURSING PROGon 07-19-2021 NURSING PROG Normal [facility] NURSING PROG Normal [facility] Prot CSF-mCncon 07-19-2021 Protein (CSF) [Mass/Vol] 51 mg/dL High [facility] Comment on above: Order Comment: Speci men Type: CEREBROSPINAL FLUIDOrdering Facility: [facility] Address: [address] [place] [address] Performed By: #### 2 342-4, 2880-3 ####[facility] LABORATORYCLIA [id number] [address] THERAPY NTon 07-19-2021 THERAPY NT Normal [facility] Urinalysis complete panel (U )on 07-19-2021 Bilirubin Ql (U) Negative Normal Negative [facility] Comment on above: Order Comment: Speci men Type: URINE SPECIMENOrdering Facility: [facility] Address: [address] [place] [address] Performed By: #### 2 4356-8 ####[facility] LABORATORYCLIA [id number] [address] [place] Clarity (Unsp spec) Clear Normal Clear [facility] Comment on above: Order Comment: Speci men Type: URINE SPECIMENOrdering Facility: [facility] Address: [address] [place] [address] Performed By: #### 2 4356-8 ####[facility] LABORATORYCLIA [id number] [address] Color (U) Colorless Normal yellow [facility] Comment on above: Order Comment: Speci men Type: URINE SPECIMENOrdering Facility: [facility] Address: [address] [place] [address] Performed By: #### 2 4356-8 ####[facility] LABORATORYCLIA [id number] [address] Glucose Test strip (U) [Mass/Vol] Negative Normal Negative [facility] Comment on above: Order Comment: Speci men Type: URINE SPECIMENOrdering Facility: [facility] Address: [address] [place] [address] Performed By: #### 2 4356-8 ####[facility] LABORATORYCLIA [id number] [address] STATES [facility] Hemoglobin Ql (U) Trace Abnormal Negative [facility] Comment on above: Order Comment: Speci men Type: URINE SPECIMENOrdering Facility: [facility] Address: [address] [place] [address] Performed By: #### 2 4356-8 ####[facility] LABORATORYCLIA [id number] [address] OF [facility] Hyaline casts (Urine sed) [#/Area] 1-3 /LPF Abnormal 0 /LPF [facility] Comment on above: Order Comment: Speci men Type: URINE SPECIMENOrdering Facility: [facility] Address: [address] [place] [address] Performed By: #### 2 4356-8 ####[facility] LABORATORYCLIA [id number] [address] Ketones Ql (U) Negative Normal Negative [facility] Comment on above: Order Comment: Speci men Type: URINE SPECIMENOrdering Facility: [facility] Address: [address] [place] [address] Performed By: #### 2 4356-8 ####[facility] LABORATORYCLIA [id number] [address] Leukocyte esterase Test strip Ql (U) Negative Normal Negative [facility] Comment on above: Order Comment: Speci men Type: URINE SPECIMENOrdering Facility: [facility] Address: [address] [place] [address] Performed By: #### 2 4356-8 ####[facility] LABORATORYCLIA [id number] [address] STATES [facility] Nitrite Ql (U) Negative Normal Negative [facility] Comment on above: Order Comment: Speci men Type: URINE SPECIMENOrdering Facility: [facility] Address: [address] [place] [address] Performed By: #### 2 4356-8 ####[facility] LABORATORYCLIA [id number] [address] [place] pH (U) 7.0 [pH] Normal 5.0-8.0 [facility] Comment on above: Order Comment: Speci men Type: URINE SPECIMENOrdering Facility: [facility] Address: [address] [place] [address] Performed By: #### 2 4356-8 ####[facility]ITALCLIA [id number] [address] Protein (U) [Mass/Vol] Negative Normal Negative [place] Comment on above: Order Comment: Speci men Type: URINE SPECIMENOrdering Facility: [facility] Address: [address] [place] [address] Performed By: #### 2 4356-8 ####[facility] LABORATORYCLIA [id number] [address] RBC LM.HPF (Urine sed) [#/Area] 6-10 /HPF Abnormal 0-3 /HPF [facility] Comment on above: Order Comment: Speci men Type: URINE SPECIMENOrdering Facility: [facility] Address: [address] [place] [address] Performed By: #### 2 4356-8 ####[facility] LABORATORYCLIA [id number] [address] [place] Specific gravity (U) [Rel density] 1.008 Normal 1.005-1.030 [facility] Comment on above: Order Comment: Speci men Type: URINE SPECIMENOrdering Facility: [facility] Address: [address] [place] [address] Performed By: #### 2 4356-8 ####[facility] LABORATORYCLIA [id number] [address] Urobilinogen Ql (U) Normal Normal Negative [facility] Comment on above: Order Comment: Speci men Type: URINE SPECIMENOrdering Facility: [facility] Address: [address] [place] [address] Performed By: #### 2 4356-8 ####[facility] LABORATORYCLIA [id number] [address] WBC LM.HPF (Urine sed) [#/Area] 0-5 /HPF Normal 0-5 /HPF [facility] Comment on above: Order Comment: Speci men Type: URINE SPECIMENOrdering Facility: [facility] Address: [address] [place] [address] Performed By: #### 2 4356-8 ####[facility] LABORATORYCLIA [id number] [address] Vancomycin random [Mass/Vol] on 07-19-2021 Vancomycin [Mass/Vol] 13.9 ug/mL Normal 10.0-20.0 [facility] Comment on above: Order Comment: Speci men Type: BLOOD SPECIMENOrdering Facility: [facility] Address: [address] [place] [address] Result Comment: Refe rence ranges and high/low indicator flags are provided as general guidelines only. The treating physician must determine appropriate target levels/dosing based on the specific clinical situation. Performed By: #### 4 091-5 ####[facility] LABORATORYCLIA [id number] [address] STATES OF [facility] aPTT PPPon 07-19-2021 aPTT Coag (PPP) [Time] 53.9 s High 23.0-32.4 [place] Comment on above: Order Comment: Speci men Type: BLOOD SPECIMENOrdering Facility: [facility] Address: [address] [place] [address] Performed By: #### 1 4979-9 ####[facility] LABORATORYCLIA [id number] [place] [address] [place] Basic metabolic 2000 panelon 07-18-2021 Anion gap [Moles/Vol] 6 mmol/L Low 9-18 [facility] Comment on above: Order Comment: Speci men Type: BLOOD SPECIMENOrdering Facility: [facility] Address: [address] [place] [address] Performed By: #### 2 4321-2, , 2776-05 ####[facility] LABORATORYCLIA [id number] [place] [address] [place] Calcium [Mass/Vol] 9.4 mg/dL Normal 8.5-10.2 [facility] Comment on above: Order Comment: Speci men Type: BLOOD SPECIMENOrdering Facility: [facility] Address: [address] [place] [address] Performed By: #### 2 4321-2, , 2776-05 ####[facility] LABORATORYCLIA [id number] [place] [address] [place] Chloride [Moles/Vol] 103 mmol/L Normal 97-105 [facility] Comment on above: Order Comment: Speci men Type: BLOOD SPECIMENOrdering Facility: [facility] Address: [address] [place] [address] Performed By: #### 2 4321-2, , 2776- ####[facility] LABORATORYCLIA [id number] [place] [address] [place] CO2 [Moles/Vol] 34 mmol/L High 22-30 [facility] Comment on above: Order Comment: Speci men Type: BLOOD SPECIMENOrdering Facility: [facility] Address: [address] [place] [address] Performed By: #### 2 4321-2, , 2776-05 ####[facility] [id number] [place] [address] [place] Creatinine [Mass/Vol] 0.75 mg/dL Normal 0.73-1.22 [facility] Comment on above: Order Comment: Shira feldman Type: BLOOD SPECIMENOrdering Facility: [facility] Address: [address] [place] [address] Performed By: #### 2 4321-2, , 2776-05 ####[facility] [id number] [place] [id number] [place] ESTIMATED GLOMERULAR FILTRATION RATE 98 mL/min/1.73m??? Normal >=60 [facility] Comment on above: Order Comment: Shira feldman Type: BLOOD SPECIMENOrdering Facility: [facility] Address: [address] [place] [address] Result Comment: Luzmaria mated Glomerular Filtration Rate [...] 4321-2, , 2776-05 ####[facility] [id number] [place] [id number] [place] Glucose [Mass/Vol] 125 mg/dL High 74-99 [facility] Comment on above: Order Comment: Shira francia Type: BLOOD SPECIMENOrdering Facility: [facility] Address: [address] [id number] Result Comment: The [place] [employer] (ADA) provides guidance for cutoff [...] Standards of Medical Care in Diabetes 2016, [place] [employer]. Diabetes Care. 2016.39(Suppl 1). Performed By: #### 2 4321-2, , 2776- ####[facility] LABORATORYCLIA [id number] [place] [address] [place] Potassium [Moles/Vol] 4.4 mmol/L Normal 3.7-5.1 [facility] Comment on above: Order Comment: Speci men Type: BLOOD SPECIMENOrdering Facility: [facility] Address: [address] [place] [address] Performed By: #### 2 4321-2, , 2776-05 ####[facility] LABORATORYCLIA [id number] [address] STATES OF [facility] Sodium [Moles/Vol] 143 mmol/L Normal 136-144 [facility] Comment on above: Order Comment: Speci men Type: BLOOD SPECIMENOrdering Facility: [facility] Address: [address] [place] [address] Performed By: #### 2 4321-2, , 2776-05 ####[facility] LABORATORYCLIA [id number] [place] [address] [place] Urea nitrogen [Mass/Vol] 33 mg/dL High 9-24 [facility] Comment on above: Order Comment: Speci men Type: BLOOD SPECIMENOrdering Facility: [facility] Address: [address] [place] [address] Performed By: #### 2 4321-2, , 2776-05 ####[facility] LABORATORYCLIA [id number] [address] [place] CASE MANAGEMon 07-18-2021 CASE MANAGEM Normal [facility] CBC W Auto Differential pane l (Bld)on 07-18-2021 Basophils (Bld) [#/Vol] 0.05 10*3/uL Normal <0.11 [facility] Comment on above: Order Comment: Speci men Type: BLOOD SPECIMENOrdering Facility: [facility] Address: [address] [place] [address] Performed By: #### 5 7021-8 ####[facility] LABORATORYCLIA [id number] [address] [place] Basophils/100 WBC (Bld) 0.5 % Normal [facility] Comment on above: Order Comment: Speci men Type: BLOOD SPECIMENOrdering Facility: [facility] Address: [address] [place] [address] Performed By: #### 5 7021-8 ####[facility] LABORATORYCLIA [id number] [address] [place] Differential cell count method Nom (Bld) Auto Normal [facility] Comment on above: Order Comment: Speci men Type: BLOOD SPECIMENOrdering Facility: [facility] Address: [address] [place] [address] Performed By: #### 5 7021-8 ####[facility] LABORATORYCLIA [id number] [place] [address] [place] Eosinophils (Bld) [#/Vol] 0.44 10*3/uL Normal <0.46 [facility] Comment on above: Order Comment: Speci men Type: BLOOD SPECIMENOrdering Facility: [facility] Address: [address] [place] [address] Performed By: #### 5 7021-8 ####[facility] LABORATORYCLIA [id number] [address] [place] Eosinophils/100 WBC (Bld) 4.3 % Normal [facility] Comment on above: Order Comment: Speci men Type: BLOOD SPECIMENOrdering Facility: [facility] Address: [address] [place] [address] Performed By: #### 5 7021-8 ####[facility] LABORATORYCLIA [id number] [address] Erythrocyte distribution width (RBC) [Ratio] 16.6 % High 11.5-15.0 [facility] Comment on above: Order Comment: Speci men Type: BLOOD SPECIMENOrdering Facility: [facility] Address: [address] [place] [address] Performed By: #### 5 7021-8 ####[facility] LABORATORYCLIA [id number] [address] Hematocrit (Bld) [Volume fraction] 32.2 % Low 39.0-51.0 [facility] Comment on above: Order Comment: Speci men Type: BLOOD SPECIMENOrdering Facility: [facility] Address: [address] [place] [address] Performed By: #### 5 7021-8 ####[facility] LABORATORYCLIA [id number] [address] Hemoglobin (Bld) [Mass/Vol] 9.5 g/dL Low 13.0-17.0 [facility] Comment on above: Order Comment: Speci men Type: BLOOD SPECIMENOrdering Facility: [facility] Address: [address] [place] [address] Performed By: #### 5 7021-8 ####[facility] LABORATORYCLIA [id number] [address] IMMATURE GRAN % 0.4 % Normal [facility] Comment on above: Order Comment: Speci men Type: BLOOD SPECIMENOrdering Facility: [facility] Address: [address] [place] [address] Performed By: #### 5 7021-8 ####[facility] LABORATORYCLIA [id number] [address] IMMATURE GRAN ABS 0.04 k/uL Normal <0.10 [facility] Comment on above: Order Comment: Speci men Type: BLOOD SPECIMENOrdering Facility: [facility] Address: [address] [place] [address] Performed By: #### 5 7021-8 ####[facility] LABORATORYCLIA [id number] [address] Lymphocytes (Bld) [#/Vol] 1.71 10*3/uL Normal 1.00-4.00 [facility] Comment on above: Order Comment: Speci men Type: BLOOD SPECIMENOrdering Facility: [facility] Address: [address] [place] [address] Performed By: #### 5 7021-8 ####[facility] LABORATORYCLIA [id number] [address] Lymphocytes/100 WBC (Bld) 16.9 % Normal [facility] Comment on above: Order Comment: Speci men Type: BLOOD SPECIMENOrdering Facility: [facility] Address: [address] [place] [address] Performed By: #### 5 7021-8 ####[facility] LABORATORYCLIA [id number] [address] MCH (RBC) [Entitic mass] 27.9 pg Normal 26.0-34.0 [facility] Comment on above: Order Comment: Speci men Type: BLOOD SPECIMENOrdering Facility: [facility] Address: [address] [place] [address] Performed By: #### 5 7021-8 ####[facility] LABORATORYCLIA [id number] [address] OF [facility] MCHC (RBC) [Mass/Vol] 29.5 g/dL Low 30.5-36.0 [facility] Comment on above: Order Comment: Speci men Type: BLOOD SPECIMENOrdering Facility: [facility] Address: [address] [place] [address] Performed By: #### 5 7021-8 ####[facility] LABORATORYCLIA [id number] [address] OF [facility] MCV (RBC) [Entitic vol] 94.7 fL Normal 80.0-100.0 [facility] Comment on above: Order Comment: Speci men Type: BLOOD SPECIMENOrdering Facility: [facility] Address: [address] [place] [address] Performed By: #### 5 7021-8 ####[facility] LABORATORYCLIA [id number] [address] [place] Monocytes (Bld) [#/Vol] 0.69 10*3/uL Normal <0.87 [facility] Comment on above: Order Comment: Speci men Type: BLOOD SPECIMENOrdering Facility: [facility] Address: [address] [place] [address] Performed By: #### 5 7021-8 ####[facility] LABORATORYCLIA [id number] [address] OF [place] Monocytes/100 WBC (Bld) 6.8 % Normal [facility] Comment on above: Order Comment: Speci men Type: BLOOD SPECIMENOrdering Facility: [facility] Address: [address] [place] [address] Performed By: #### 5 7021-8 ####[facility] LABORATORYCLIA [id number] [place] [address] [place] Neutrophils (Bld) [#/Vol] 7.19 10*3/uL Normal 1.45-7.50 [facility] Comment on above: Order Comment: Speci men Type: BLOOD SPECIMENOrdering Facility: [facility] Address: [address] [place] [address] Performed By: #### 5 7021-8 ####[facility] LABORATORYCLIA [id number] [address] [place] Neutrophils/100 WBC (Bld) 71.1 % Normal [facility] Comment on above: Order Comment: Speci men Type: BLOOD SPECIMENOrdering Facility: [facility] Address: [address] [place] [address] Performed By: #### 5 7021-8 ####[facility] LABORATORYCLIA [id number] [place] [address] [place] Nucleated RBC (Bld) [#/Vol] 10*3/uL Normal <0.01 [facility] Comment on above: Order Comment: Speci men Type: BLOOD SPECIMENOrdering Facility: [facility] Address: [address] [place] [address] Performed By: #### 5 7021-8 ####[facility] LABORATORYCLIA [id number] [place] [address] [place] Nucleated RBC/100 WBC (Bld) [Ratio] 0.0 /100 WBC Normal [facility] Comment on above: Order Comment: Speci men Type: BLOOD SPECIMENOrdering Facility: [facility] Address: [address] [place] [address] Performed By: #### 5 7021-8 ####[facility] LABORATORYCLIA [id number] [place] [address] [place] Platelet mean volume (Bld) [Entitic vol] 10.3 fL Normal 9.0-12.7 [facility] Comment on above: Order Comment: Speci men Type: BLOOD SPECIMENOrdering Facility: [facility] Address: [address] [place] [address] Performed By: #### 5 7021-8 ####[facility] LABORATORYCLIA [id number] [place] [address] [place] Platelets (Bld) [#/Vol] 403 10*3/uL High 150-400 [facility] Comment on above: Order Comment: Speci men Type: BLOOD SPECIMENOrdering Facility: [facility] Address: [address] Performed By: #### 5 7021-8 ####[facility] LABORATORYCLIA [id number] [place] [address] [place] RBC (Bld) [#/Vol] 3.40 10*6/uL Low 4.20-6.00 [facility] Comment on above: Order Comment: Speci men Type: BLOOD SPECIMENOrdering Facility: [facility] Address: [address] [place] [address] Performed By: #### 5 7021-8 ####[facility] LABORATORYCLIA [id number] [address] OF [facility] WBC (Bld) [#/Vol] 10.12 10*3/uL Normal 3.70-11.00 [facility] Comment on above: Order Comment: Speci men Type: BLOOD SPECIMENOrdering Facility: [facility] Address: [address] [place] [address] Performed By: #### 5 7021-8 ####[facility] LABORATORYCLIA [id number] [address] Magnesium SerPl-ncon 07-18 Magnesium [Mass/Vol] 2.4 mg/dL High 1.7-2.3 [facility] Comment on above: Order Comment: Speci men Type: BLOOD SPECIMENOrdering Facility: [facility] Address: [address] [place] [address] Performed By: #### 2 4321-2, 10284-0, 2777-1 ####[facility]PITALCLIA [id number] [address] NURSING PROGon 07-18-2021 NURSING PROG Normal [facility] NURSING PROG Normal [facility] Phosphate SerPl-mCncon 07-18 Phosphate [Mass/Vol] 3.9 mg/dL Normal 2.7-4.8 [facility] Comment on above: Order Comment: Speci men Type: BLOOD SPECIMENOrdering Facility: [facility] Address: [address] [place] [address] Performed By: #### 2 4321-2, 06012-1, 2777-1 ####[facility] LABORATORYCLIA [id number] [address] THERAPY NTon 07-18-2021 THERAPY NT Normal [facility] aPTT PPPon 07-18-2021 aPTT Coag (PPP) [Time] 52.3 s High 23.0-32.[address] [place] Comment on above: Order Comment: Speci men Type: BLOOD SPECIMENOrdering Facility: [facility] Address: [address] [place] [address] Performed By: #### 1 4979-9 ####[facility] LABORATORYCLIA [id number] [address] STATES OF [facility] CBC W Auto Differential pane l (Bld)on 07-17-2021 Basophils (Bld) [#/Vol] 0.05 10*3/uL Normal <0.11 [facility] Comment on above: Order Comment: Speci men Type: BLOOD SPECIMENOrdering Facility: [facility] Address: [address] [place] [address] Performed By: #### 5 7021-8 ####[facility] LABORATORYCLIA [id number] [address] [place] Basophils/100 WBC (Bld) 0.5 % Normal [facility] Comment on above: Order Comment: Speci men Type: BLOOD SPECIMENOrdering Facility: [facility] Address: [address] [place] [address] Performed By: #### 5 7021-8 ####[facility] LABORATORYCLIA [id number] [address] Differential cell count method Nom (Bld) Auto Normal [facility] Comment on above: Order Comment: Speci men Type: BLOOD SPECIMENOrdering Facility: [facility] Address: [address] [address] Performed By: #### 5 7021-8 ####[facility] LABORATORYCLIA [id number] [address] [place] Eosinophils (Bld) [#/Vol] 0.32 10*3/uL Normal <0.46 [facility] Comment on above: Order Comment: Speci men Type: BLOOD SPECIMENOrdering Facility: [facility] Address: [facility] [place] [address] Performed By: #### 5 7021-8 ####[facility] LABORATORYCLIA [id number] [address] Eosinophils/100 WBC (Bld) 3.4 % Normal [facility] Comment on above: Order Comment: Speci men Type: BLOOD SPECIMENOrdering Facility: [facility] Address: [address] [place] [address] Performed By: #### 5 7021-8 ####[facility] LABORATORYCLIA [id number] [address] Erythrocyte distribution width (RBC) [Ratio] 16.6 % High 11.5-15.0 [facility] Comment on above: Order Comment: Speci men Type: BLOOD SPECIMENOrdering Facility: [facility] Address: [address] [place] [address] Performed By: #### 5 7021-8 ####[facility] LABORATORYCLIA [id number] [address] Hematocrit (Bld) [Volume fraction] 30.7 % Low 39.0-51.0 [facility] Comment on above: Order Comment: Speci men Type: BLOOD SPECIMENOrdering Facility: [facility] Address: [address] [place] [address] Performed By: #### 5 7021-8 ####[facility] LABORATORYCLIA [id number] [address] [place] Hemoglobin (Bld) [Mass/Vol] 9.0 g/dL Low 13.0-17.0 [facility] Comment on above: Order Comment: Speci men Type: BLOOD SPECIMENOrdering Facility: [facility] Address: [address] [place] [address] Performed By: #### 5 7021-8 ####[facility] LABORATORYCLIA [id number] [address] IMMATURE GRAN % 0.6 % Normal [facility] Comment on above: Order Comment: Speci men Type: BLOOD SPECIMENOrdering Facility: [facility] Address: [address] [place] [address] Performed By: #### 5 7021-8 ####[facility] LABORATORYCLIA [id number] [address] STATES [facility] IMMATURE GRAN ABS 0.06 k/uL Normal <0.10 [facility] Comment on above: Order Comment: Speci men Type: BLOOD SPECIMENOrdering Facility: [facility] Address: [address] [place] [address] Performed By: #### 5 7021-8 ####[facility] LABORATORYCLIA [id number] [address] Lymphocytes (Bld) [#/Vol] 1.61 10*3/uL Normal 1.00-4.00 [facility] Comment on above: Order Comment: Speci men Type: BLOOD SPECIMENOrdering Facility: [facility] Address: [address] [place] [address] Performed By: #### 5 7021-8 ####[facility] LABORATORYCLIA [id number] [address] Lymphocytes/100 WBC (Bld) 17.3 % Normal [facility] Comment on above: Order Comment: Speci men Type: BLOOD SPECIMENOrdering Facility: [facility] Address: [address] [place] [address] Performed By: #### 5 7021-8 ####[facility] LABORATORYCLIA [id number] [address] MCH (RBC) [Entitic mass] 26.9 pg Normal 26.0-34.0 [facility] Comment on above: Order Comment: Speci men Type: BLOOD SPECIMENOrdering Facility: [facility] Address: [address] [place] [address] Performed By: #### 5 7021-8 ####[facility] LABORATORYCLIA [id number] [address] [place] MCHC (RBC) [Mass/Vol] 29.3 g/dL Low 30.5-36.0 [facility] Comment on above: Order Comment: Speci men Type: BLOOD SPECIMENOrdering Facility: [facility] Address: [address] [address] Performed By: #### 5 7021-8 ####[facility] LABORATORYCLIA [id number] [address] [place] MCV (RBC) [Entitic vol] 91.9 fL Normal 80.0-100.0 [facility] Comment on above: Order Comment: Speci men Type: BLOOD SPECIMENOrdering Facility: [facility] Address: [address] [place] [address] Performed By: #### 5 7021-8 ####[facility] LABORATORYCLIA [id number] [address] [place] Monocytes (Bld) [#/Vol] 0.61 10*3/uL Normal <0.87 [facility] Comment on above: Order Comment: Speci men Type: BLOOD SPECIMENOrdering Facility: [facility] Address: [address] [place] [address] Performed By: #### 5 7021-8 ####[facility] LABORATORYCLIA [id number] [address] Monocytes/100 WBC (Bld) 6.6 % Normal [facility] Comment on above: Order Comment: Speci men Type: BLOOD SPECIMENOrdering Facility: [facility] Address: [address] [place] [address] Performed By: #### 5 7021-8 ####[facility] LABORATORYCLIA [id number] [address] [place] Neutrophils (Bld) [#/Vol] 6.64 10*3/uL Normal 1.45-7.50 [facility] Comment on above: Order Comment: Speci men Type: BLOOD SPECIMENOrdering Facility: [facility] Address: [address] [place] [address] Performed By: #### 5 7021-8 ####[facility] LABORATORYCLIA [id number] [place] [address] Neutrophils/100 WBC (Bld) 71.6 % Normal [facility] Comment on above: Order Comment: Speci men Type: BLOOD SPECIMENOrdering Facility: [facility] Address: [address] [place] [address] Performed By: #### 5 7021-8 ####[facility] LABORATORYCLIA [id number] [address] [place] Nucleated RBC (Bld) [#/Vol] 10*3/uL Normal <0.01 [facility] Comment on above: Order Comment: Speci men Type: BLOOD SPECIMENOrdering Facility: [facility] Address: [address] [place] [address] Performed By: #### 5 7021-8 ####[facility] LABORATORYCLIA [id number] [address] Nucleated RBC/100 WBC (Bld) [Ratio] 0.0 /100 WBC Normal [facility] Comment on above: Order Comment: Speci men Type: BLOOD SPECIMENOrdering Facility: [facility] Address: [address] [place] [address] Performed By: #### 5 7021-8 ####[facility] LABORATORYCLIA [id number] [address] [place] Platelet mean volume (Bld) [Entitic vol] 10.1 fL Normal 9.0-12.7 [facility] Comment on above: Order Comment: Speci men Type: BLOOD SPECIMENOrdering Facility: [facility] Address: [address] Performed By: #### 5 7021-8 ####[facility] LABORATORYCLIA [id number] [address] [place] Platelets (Bld) [#/Vol] 387 10*3/uL Normal 150-400 [facility] Comment on above: Order Comment: Speci men Type: BLOOD SPECIMENOrdering Facility: [facility] Address: [address] [place] [address] Performed By: #### 5 7021-8 ####[facility] LABORATORYCLIA [id number] [address] STATES OF [facility] RBC (Bld) [#/Vol] 3.34 10*6/uL Low 4.20-6.00 [facility] Comment on above: Order Comment: Speci men Type: BLOOD SPECIMENOrdering Facility: [facility] Address: [address] [place] [address] Performed By: #### 5 7021-8 ####[facility] LABORATORYCLIA [id number] [address] WBC (Bld) [#/Vol] 9.29 10*3/uL Normal 3.70-11.00 [facility] Comment on above: Order Comment: Speci men Type: BLOOD SPECIMENOrdering Facility: [facility] Address: [address] [place] [address] Performed By: #### 5 7021-8 ####[facility] LABORATORYCLIA [id number] [address] CONSULT PROGon 07-17-2021 CONSULT PROG Normal [facility] Magnesium SerPl-mCncon 07-17 Magnesium [Mass/Vol] 2.3 mg/dL Normal 1.7-2.3 [facility] Comment on above: Order Comment: Speci men Type: BLOOD SPECIMENOrdering Facility: [facility] Address: [address] [place] [address] Performed By: #### 2 777-1, 54091-5 ####[facility] LABORATORYCLIA [id number] [address] OF [place] NURSING PROGon 07-17-2021 NURSING PROG Normal [facility] NURSING PROG Normal [facility] NURSING PROG Normal [facility] Phosphate SerPl-mCncon 07-17 Phosphate [Mass/Vol] 3.6 mg/dL Normal 2.7-4.8 [facility] Comment on above: Order Comment: Speci men Type: BLOOD SPECIMENOrdering Facility: [facility] Address: [address] [place] [address] Performed By: #### 2 777-1, ####[facility] LABORATORYCLIA [id number] [address] [place] aPTT PPPon 07-17-2021 aPTT Coag (PPP) [Time] 57.2 s High 23.0-32.4 [place] Comment on above: Order Comment: Speci men Type: BLOOD SPECIMENOrdering Facility: [facility] Address: [address] [place] [address] Performed By: #### 1 4979-9 ####[facility] LABORATORYCLIA [id number] [place] [address] [place] Basic metabolic 2000 panelon 07-16-2021 Anion gap [Moles/Vol] 5 mmol/L Low 9-18 [facility] Comment on above: Order Comment: Speci men Type: BLOOD SPECIMENOrdering Facility: [facility] Address: [address] [place] [address] Performed By: #### 2 777-1, 91483-1, ####[facility]OSPITALCLIA [id number] [place] [address] [place] Calcium [Mass/Vol] 9.1 mg/dL Normal 8.5-10.2 [facility] Comment on above: Order Comment: Speci men Type: BLOOD SPECIMENOrdering Facility: [facility] Address: [address] [place] [address] Performed By: #### 2 777-1, 35338-0, ####[facility] LABORATORYCLIA [id number] [address] [place] Chloride [Moles/Vol] 101 mmol/L Normal 97-105 [facility] Comment on above: Order Comment: Speci men Type: BLOOD SPECIMENOrdering Facility: [facility] Address: [address] [place] [address] Performed By: #### 2 777-1, , ####[facility] LABORATORYCLIA [id number] [place] [address] [place] CO2 [Moles/Vol] 35 mmol/L High 22-30 [facility] Comment on above: Order Comment: Speci men Type: BLOOD SPECIMENOrdering Facility: [facility] Address: [address] [place] [address] Performed By: #### 2 777-1, , ####[facility] LABORATORYCLIA [id number] [place] [address] [place] [facility] Creatinine [Mass/Vol] 0.73 mg/dL Normal 0.73-1.22 [facility] Comment on above: Order Comment: Speci men Type: BLOOD SPECIMENOrdering Facility: [facility] Address: [address] [place] [address] Performed By: #### 2 777-1, , ####[facility]OS[facility]ITALCLIA [id number] [address] STATES OF [facility] ESTIMATED GLOMERULAR FILTRATION RATE 98 mL/min/1.73m??? Normal >=60 [facility] Comment on above: Order Comment: Speci men Type: BLOOD SPECIMENOrdering Facility: [facility] Address: [address] [place] [address] Result Comment: Luzmaria mated Glomerular Filtration Rate [...] GFR. Performed By: #### 2 777-1, , ####[facility] LABORATORYCLIA [id number] [place] [address] [place] Glucose [Mass/Vol] 133 mg/dL High 74-99 [facility] Comment on above: Order Comment: Shira feldman Type: BLOOD SPECIMENOrdering Facility: [facility] Address: [address] [place], [place] [phone] Result Comment: The [place] [employer] (ADA) provides guidance for cutoff [...] Standards of Medical Care in Diabetes 2016, [place] [employer]. Diabetes Care. 2016.39(Suppl 1). Performed By: #### 2 777-1, 81492-9, ####[facility]ORATORYCLIA [id number] [place] [address] [place] Potassium [Moles/Vol] 4.2 mmol/L Normal 3.7-5.1 [facility] Comment on above: Order Comment: Shira feldman Type: BLOOD SPECIMENOrdering Facility: [facility] Address: [address] [place], [place] [phone] Performed By: #### 2 777-1, 91055-3, ####[facility]ORATORYCLIA [id number] [place] [address] [place] Sodium [Moles/Vol] 141 mmol/L Normal 136-144 [facility] Comment on above: Order Comment: Shira feldman Type: BLOOD SPECIMENOrdering Facility: [facility] Address: [address] [place], [place] [phone] Performed By: #### 2 777-1, , ####[facility]ORATORYCLIA [id number] [place] [address] [place] Urea nitrogen [Mass/Vol] 21 mg/dL Normal 9-24 [facility] Comment on above: Order Comment: Speci men Type: BLOOD SPECIMENOrdering Facility: [facility] Address: [address] [place] [address] Performed By: #### 2 777-1, 05302-5, 82114-4 ####[facility]ORATORYCLIA [id number] [address] [place] CBC W Auto Differential pane l (Bld)on 07-16-2021 Basophils (Bld) [#/Vol] 0.06 10*3/uL Normal <0.11 [facility] Comment on above: Order Comment: Speci men Type: BLOOD SPECIMENOrdering Facility: [facility] Address: [address] [place] [address] Performed By: #### 5 7021-8 ####[facility]ORATORYCLIA [id number] [address] [place] Basophils/100 WBC (Bld) 0.7 % Normal [facility] Comment on above: Order Comment: Speci men Type: BLOOD SPECIMENOrdering Facility: [facility] Address: [address] [place] [address] Performed By: #### 5 7021-8 ####[facility]ORATORYCLIA [id number] [address] Differential cell count method Nom (Bld) Auto Normal [facility] Comment on above: Order Comment: Speci men Type: BLOOD SPECIMENOrdering Facility: [facility] Address: [address] [place] [address] Performed By: #### 5 7021-8 ####[facility]ORATORYCLIA [id number] [place] [address] [place] Eosinophils (Bld) [#/Vol] 0.35 10*3/uL Normal <0.46 [facility] Comment on above: Order Comment: Speci men Type: BLOOD SPECIMENOrdering Facility: [facility] Address: [address] [place] [address] Performed By: #### 5 7021-8 ####[facility]ORATORYCLIA [id number] [address] Eosinophils/100 WBC (Bld) 3.9 % Normal [facility] Comment on above: Order Comment: Speci men Type: BLOOD SPECIMENOrdering Facility: [facility] Address: [address] [place] [address] Performed By: #### 5 7021-8 ####[facility]ORATORYCLIA [id number] [address] Erythrocyte distribution width (RBC) [Ratio] 16.5 % High 11.5-15.0 [facility] Comment on above: Order Comment: Speci men Type: BLOOD SPECIMENOrdering Facility: [facility] Address: [address] [place] [address] Performed By: #### 5 7021-8 ####[facility]ORATORYCLIA [id number] [address] Hematocrit (Bld) [Volume fraction] 30.9 % Low 39.0-51.0 [facility] Comment on above: Order Comment: Speci men Type: BLOOD SPECIMENOrdering Facility: [facility] Address: [address] [place] [address] Performed By: #### 5 7021-8 ####[facility]ORATORYCLIA [id number] [address] [place] Hemoglobin (Bld) [Mass/Vol] 9.1 g/dL Low 13.0-17.0 [facility] Comment on above: Order Comment: Speci men Type: BLOOD SPECIMENOrdering Facility: [facility] Address: [address] [place] [address] Performed By: #### 5 7021-8 ####[facility]ORATORYCLIA [id number] [address] IMMATURE GRAN % 0.4 % Normal [facility] Comment on above: Order Comment: Speci men Type: BLOOD SPECIMENOrdering Facility: [facility] Address: [address] [place] [address] Performed By: #### 5 7021-8 ####[facility]ATORYCLIA [id number] [address] IMMATURE GRAN ABS 0.04 k/uL Normal <0.10 [facility] Comment on above: Order Comment: Speci men Type: BLOOD SPECIMENOrdering Facility: [facility] Address: [address] [place] [address] Performed By: #### 5 7021-8 ####[facility]ORATORYCLIA [id number] [address] Lymphocytes (Bld) [#/Vol] 1.35 10*3/uL Normal 1.00-4.00 [facility] Comment on above: Order Comment: Speci men Type: BLOOD SPECIMENOrdering Facility: [facility] Address: [address] [place] [address] Performed By: #### 5 7021-8 ####[facility]ORATORYCLIA [id number] [address] Lymphocytes/100 WBC (Bld) 15.0 % Normal [facility] Comment on above: Order Comment: Speci men Type: BLOOD SPECIMENOrdering Facility: [facility] Address: [address] [place] [address] Performed By: #### 5 7021-8 ####[facility]ORATORYCLIA [id number] [address] MCH (RBC) [Entitic mass] 27.1 pg Normal 26.0-34.0 [facility] Comment on above: Order Comment: Speci men Type: BLOOD SPECIMENOrdering Facility: [facility] Address: [address] [place] [address] Performed By: #### 5 7021-8 ####[facility]ORATORYCLIA [id number] [address] [place] MCHC (RBC) [Mass/Vol] 29.4 g/dL Low 30.5-36.0 [facility] Comment on above: Order Comment: Speci men Type: BLOOD SPECIMENOrdering Facility: [facility] Address: [address] [place] [address] Performed By: #### 5 7021-8 ####[facility]ORATORYCLIA [id number] [address] [place] MCV (RBC) [Entitic vol] 92.0 fL Normal 80.0-100.0 [facility] Comment on above: Order Comment: Speci men Type: BLOOD SPECIMENOrdering Facility: [facility] Address: [address] [place] [address] Performed By: #### 5 7021-8 ####[facility]ATORYCLIA [id number] [place] [address] [place] Monocytes (Bld) [#/Vol] 0.53 10*3/uL Normal <0.87 [facility] Comment on above: Order Comment: Speci men Type: BLOOD SPECIMENOrdering Facility: [facility] Address: [address] [place] [address] Performed By: #### 5 7021-8 ####[facility]ATORYCLIA [id number] [address] [place] Monocytes/100 WBC (Bld) 5.9 % Normal [facility] Comment on above: Order Comment: Speci men Type: BLOOD SPECIMENOrdering Facility: [facility] Address: [address] [place] [address] Performed By: #### 5 7021-8 ####[facility]ATORYCLIA [id number] [address] [place] Neutrophils (Bld) [#/Vol] 6.67 10*3/uL Normal 1.45-7.50 [facility] Comment on above: Order Comment: Speci men Type: BLOOD SPECIMENOrdering Facility: [facility] Address: [address] [place] [address] Performed By: #### 5 7021-8 ####[facility]ORATORYCLIA [id number] [address] [place] Neutrophils/100 WBC (Bld) 74.1 % Normal [facility] Comment on above: Order Comment: Speci men Type: BLOOD SPECIMENOrdering Facility: [facility] Address: [address] [place] [place] [address] Performed By: #### 5 7021-8 ####[facility]ORATORYCLIA [id number] [place] [address] [place] Nucleated RBC (Bld) [#/Vol] 10*3/uL Normal <0.01 [facility] Comment on above: Order Comment: Speci men Type: BLOOD SPECIMENOrdering Facility: [facility] Address: [facility] [place] [address] Performed By: #### 5 7021-8 ####[facility]ORATORYCLIA [id number] [address] [place] Nucleated RBC/100 WBC (Bld) [Ratio] 0.0 /100 WBC Normal [facility] Comment on above: Order Comment: Speci men Type: BLOOD SPECIMENOrdering Facility: [facility] Address: [address] [place] [address] Performed By: #### 5 7021-8 ####[facility]ORATORYCLIA [id number] [address] [place] Platelet mean volume (Bld) [Entitic vol] 9.9 fL Normal 9.0-12.7 [facility] Comment on above: Order Comment: Speci men Type: BLOOD SPECIMENOrdering Facility: [facility] Address: [address] Performed By: #### 5 7021-8 ####[facility]ORATORYCLIA [id number] [address] [place] Platelets (Bld) [#/Vol] 391 10*3/uL Normal 150-400 [facility] Comment on above: Order Comment: Speci men Type: BLOOD SPECIMENOrdering Facility: [facility] Address: [address] [place] [address] Performed By: #### 5 7021-8 ####[facility]ATORYCLIA [id number] [address] RBC (Bld) [#/Vol] 3.36 10*6/uL Low 4.20-6.00 [facility] Comment on above: Order Comment: Speci men Type: BLOOD SPECIMENOrdering Facility: [facility] Address: [address] [place] [address] Performed By: #### 5 7021-8 ####[facility]ATORYCLIA [id number] [address] WBC (Bld) [#/Vol] 9.00 10*3/uL Normal 3.70-11.00 [facility] Comment on above: Order Comment: Speci men Type: BLOOD SPECIMENOrdering Facility: [facility] Address: [address] [place] [address] Performed By: #### 5 7021-8 ####[facility]ATORYCLIA [id number] [address] CONSULT PROGon 07-16-2021 CONSULT PROG Normal [facility] CONSULT PROG Normal [facility] Magnesium SerPl-mCncon 07-16 Magnesium [Mass/Vol] 2.3 mg/dL Normal 1.7-2.3 [facility] Comment on above: Order Comment: Speci men Type: BLOOD SPECIMENOrdering Facility: [facility] Address: [address] [place] [address] Performed By: #### 2 777-1, 24026-6, 40801-0 ####[facility]ATORYCLIA [id number] [address] NURSING PROGon 07-16-2021 NURSING PROG Normal [facility] Phosphate SerPl-mCncon 07-16 Phosphate [Mass/Vol] 3.6 mg/dL Normal 2.7-4.8 [facility] Comment on above: Order Comment: Speci men Type: BLOOD SPECIMENOrdering Facility: [facility] Address: [address] [place] [address] Performed By: #### 2 777-1, 39011-4, 01830-7 ####[facility]ATORYCLIA [id number] [place] [address] [place] Vancomycin random [Mass/Vol] on 07-16-2021 Vancomycin [Mass/Vol] 16.9 ug/mL Normal 10.0-20.0 [facility] Comment on above: Order Comment: Speci men Type: BLOOD SPECIMENOrdering Facility: [facility] Address: [address] [place] [address] Result Comment: Refe rence ranges and high/low indicator flags are provided as general guidelines only. The treating physician must determine appropriate target levels/dosing based on the specific clinical situation. Performed By: #### 4 091-5 ####[facility]ATORYCLIA [id number] [address] [place] aPTT PPPon 07-16-2021 aPTT Coag (PPP) [Time] 57.2 s High 23.0-32.4 [place] Comment on above: Order Comment: Speci francia Type: BLOOD SPECIMENOrdering Facility: [facility] Address: [address] [place] [address] Performed By: #### 1 4979-9 ####[facility]ATORYCLIA [id number] [place] [address] [place] ALLIED HEALTHon 07-15-2021 ALLIED HEALTH Normal [facility] Basic metabolic 2000 panelon 07-15-2021 Anion gap [Moles/Vol] 11 mmol/L Normal 9-18 [facility] Comment on above: Order Comment: Speci men Type: BLOOD SPECIMENOrdering Facility: [facility] Address: [address] [place] [address] Performed By: #### 2 4321-2, 12713-7, 2777-1 ####[facility]ATORYCLIA [id number] [place] [address] [place] Calcium [Mass/Vol] 8.8 mg/dL Normal 8.5-10.2 [facility] Comment on above: Order Comment: Speci men Type: BLOOD SPECIMENOrdering Facility: [facility] Address: [address] [place] [address] Performed By: #### 2 4321-2, , 2776-05 ####[facility]ORYCLIA [id number] [place] [address] [place] Chloride [Moles/Vol] 101 mmol/L Normal 97-105 [facility] Comment on above: Order Comment: Speci men Type: BLOOD SPECIMENOrdering Facility: [facility] Address: [address] [place] [address] Performed By: #### 2 4321-2, , 2776-05 ####[facility]ORYCLIA [id number] [place] [address] [place] CO2 [Moles/Vol] 31 mmol/L High 22-30 [facility] Comment on above: Order Comment: Speci men Type: BLOOD SPECIMENOrdering Facility: [facility] Address: [address] [place] [address] Performed By: #### 2 4321-2, , 2776-05 ####[facility]ORYCLIA [id number] [place] [address] [place] Creatinine [Mass/Vol] 0.76 mg/dL Normal 0.73-1.22 [facility] Comment on above: Order Comment: Speci men Type: BLOOD SPECIMENOrdering Facility: [facility] Address: [address] [place] [address] Performed By: #### 2 4321-2, , 2776-05 ####[facility]ATORYCLIA [id number] [address] [place] ESTIMATED GLOMERULAR FILTRATION RATE 97 mL/min/1.73m??? Normal >=60 [facility] Comment on above: Order Comment: Speci men Type: BLOOD SPECIMENOrdering Facility: [facility] Address: [address] [place] [address] Result Comment: Luzmaria mated Glomerular Filtration Rate [...] Performed By: #### 2 4321-2, , 2776-05 ####[facility]ITALCLIA [id number] [place] [address] [place] Glucose [Mass/Vol] 115 mg/dL High 74-99 [facility] Comment on above: Order Comment: Shira feldman Type: BLOOD SPECIMENOrdering Facility: [facility] Address: [address] [place], [place] [address] Result Comment: The [place] [employer] (ADA) provides guidance for cutoff [...] Standards of Medical Care in Diabetes 2016, [place] [employer]. Diabetes Care. 2016.39(Suppl 1). Performed By: #### 2 4321-2, , 2776-05 ####[facility]ATORYCLIA [id number] [place] [address] [place] Potassium [Moles/Vol] 4.0 mmol/L Normal 3.7-5.1 [facility] Comment on above: Order Comment: Shira feldman Type: BLOOD SPECIMENOrdering Facility: [facility] Address: [address] [id number] Performed By: #### 2 4321-2, , 2776-05 ####[facility]ORYCLIA [id number] [address] STATES [facility] Sodium [Moles/Vol] 143 mmol/L Normal 136-144 [facility] Comment on above: Order Comment: Speci men Type: BLOOD SPECIMENOrdering Facility: [facility] Address: [address] [place] [address] Performed By: #### 2 4321-2, , 2776-05 ####[facility]ATORYCLIA [id number] [address] [place] Urea nitrogen [Mass/Vol] 17 mg/dL Normal 9-24 [facility] Comment on above: Order Comment: Speci men Type: BLOOD SPECIMENOrdering Facility: [facility] Address: [address] [place] [address] Performed By: #### 2 4321-2, , 2776-05 ####[facility]ORATORYCLIA [id number] [address] STATES OF [facility] CASE MANAGEMon 07-15-2021 CASE MANAGEM Normal [facility] CBC panel Auto (Bld)on 07-15 Erythrocyte distribution width (RBC) [Ratio] 16.4 % High 11.5-15.0 [facility] Comment on above: Order Comment: Speci men Type: BLOOD SPECIMENOrdering Facility: [facility] Address: [address] [place] [address] Performed By: #### 5 8410-2 ####[facility]ORATORYCLIA [id number] [address] STATES [facility] Hematocrit (Bld) [Volume fraction] 30.3 % Low 39.0-51.0 [facility] Comment on above: Order Comment: Speci men Type: BLOOD SPECIMENOrdering Facility: [facility] Address: [address] [place] [address] Performed By: #### 5 8410-2 ####[facility]ORATORYCLIA [id number] [address] OF [facility] Hemoglobin (Bld) [Mass/Vol] 9.2 g/dL Low 13.0-17.0 [facility] Comment on above: Order Comment: Speci men Type: BLOOD SPECIMENOrdering Facility: [facility] Address: [address] [place] [address] Performed By: #### 5 8410-2 ####[facility]ORYCLIA [id number] [address] MCH (RBC) [Entitic mass] 28.3 pg Normal 26.0-34.0 [facility] Comment on above: Order Comment: Speci men Type: BLOOD SPECIMENOrdering Facility: [facility] Address: [address] [place] [address] Performed By: #### 5 8410-2 ####[facility]ATORYCLIA [id number] [address] [place] MCHC (RBC) [Mass/Vol] 30.4 g/dL Low 30.5-36.0 [facility] Comment on above: Order Comment: Speci men Type: BLOOD SPECIMENOrdering Facility: [facility] Address: [address] [place] [address] Performed By: #### 5 8410-2 ####[facility]ATORYCLIA [id number] [address] STATES OF [facility] MCV (RBC) [Entitic vol] 93.2 fL Normal 80.0-100.0 [facility] Comment on above: Order Comment: Speci men Type: BLOOD SPECIMENOrdering Facility: [facility] Address: [address] [place] [address] Performed By: #### 5 8410-2 ####[facility]ATORYCLIA [id number] [address] Nucleated RBC (Bld) [#/Vol] 10*3/uL Normal <0.01 [facility] Comment on above: Order Comment: Speci men Type: BLOOD SPECIMENOrdering Facility: [facility] Address: [address] [place] [address] Performed By: #### 5 8410-2 ####[facility] LABORATORYCLIA [id number] [address] [place] Platelet mean volume (Bld) [Entitic vol] 9.9 fL Normal 9.0-12.7 [facility] Comment on above: Order Comment: Speci men Type: BLOOD SPECIMENOrdering Facility: [facility] Address: [address] [place] [address] Performed By: #### 5 8410-2 ####[facility] LABORATORYCLIA [id number] [address] [place] Platelets (Bld) [#/Vol] 381 10*3/uL Normal 150-400 [facility] Comment on above: Order Comment: Speci men Type: BLOOD SPECIMENOrdering Facility: [facility] Address: [address] [place] [address] Performed By: #### 5 8410-2 ####[facility] LABORATORYCLIA [id number] [place] [address] [place] RBC (Bld) [#/Vol] 3.25 10*6/uL Low 4.20-6.00 [facility] Comment on above: Order Comment: Speci men Type: BLOOD SPECIMENOrdering Facility: [facility] Address: [address] [place], [place] [address] Performed By: #### 5 8410-2 ####[facility] LABORATORYCLIA [id number] [address] [place] WBC (Bld) [#/Vol] 8.80 10*3/uL Normal 3.70-11.00 [facility] Comment on above: Order Comment: Speci men Type: BLOOD SPECIMENOrdering Facility: [facility] Address: [address] [place] [address] Performed By: #### 5 8410-2 ####[facility] LABORATORYCLIA [id number] [address] [place] Magnesium SerPl-mCncon 07-15 Magnesium [Mass/Vol] 2.2 mg/dL Normal 1.7-2.3 [facility] Comment on above: Order Comment: Speci men Type: BLOOD SPECIMENOrdering Facility: [facility] Address: [address] [place] [address] Performed By: #### 2 4321-2, 14923-9, 2777-1 ####[facility] LABORATORYCLIA [id number] [address] [place] NURSING PROGon 07-15-2021 NURSING PROG Normal [facility] NURSING PROG Normal [facility] NURSING PROG Normal [facility] NUTRITIONon 07-15-2021 NUTRITION Normal [facility] Phosphate SerPl-mCncon 07-15 Phosphate [Mass/Vol] 3.4 mg/dL Normal 2.7-4.8 [facility] Comment on above: Order Comment: Speci men Type: BLOOD SPECIMENOrdering Facility: [facility] Address: [address] [place] [address] Performed By: #### 2 4321-2, 26989-5, 2777- ####[facility] LABORATORYCLIA [id number] [address] [place] THERAPY NTon 07-15-2021 THERAPY NT Normal [facility] US DVT UPPER LTon 07-15-2021 US DVT UPPER LT Normal [facility] XR CHEST 1V FRONTALon 2021 XR CHEST 1V FRONTAL Normal [facility] aPTT PPPon 07-15-2021 aPTT Coag (PPP) [Time] 59.9 s High 23.0-32.4 [place] Comment on above: Order Comment: Speci men Type: BLOOD SPECIMENOrdering Facility: [facility] Address: [address] [place] [address] Performed By: #### 1 4979-9 ####[facility] LABORATORYCLIA [id number] [place] [address] [place] Basic metabolic 2000 panelon 07-14-2021 Anion gap [Moles/Vol] 9 mmol/L Normal 9-18 [facility] Comment on above: Order Comment: Speci men Type: BLOOD SPECIMENOrdering Facility: [facility] Address: [address] [place] [address] Performed By: #### 1 9123-9, 2777-1, 76471-8 ####[facility] LABORATORYCLIA [id number] [place] [address] [place] Calcium [Mass/Vol] 8.5 mg/dL Normal 8.5-10.2 [facility] Comment on above: Order Comment: Speci men Type: BLOOD SPECIMENOrdering Facility: [facility] Address: [address] [place] [address] Performed By: #### 1 9123-9, 2777-1, 12518-6 ####[facility] LABORATORYCLIA [id number] [address] [place] Chloride [Moles/Vol] 99 mmol/L Normal 97-105 [facility] Comment on above: Order Comment: Speci men Type: BLOOD SPECIMENOrdering Facility: [facility] Address: [address] [place] [address] Performed By: #### 1 9123-9, 2777-1, 99340-4 ####[facility] LABORATORYCLIA [id number] [place] [address] [place] CO2 [Moles/Vol] 31 mmol/L High 22-30 [facility] Comment on above: Order Comment: Speci men Type: BLOOD SPECIMENOrdering Facility: [facility] Address: [address] [place] [address] Performed By: #### 1 9123-9, 2777-1, 76848-0 ####[facility]ORATORYCLIA [id number] [place] [address] [place] Creatinine [Mass/Vol] 0.74 mg/dL Normal 0.73-1.22 [facility] Comment on above: Order Comment: Speci men Type: BLOOD SPECIMENOrdering Facility: [facility] Address: [address] [id number] Performed By: #### 1 9123-9, 2777-1, 69269-2 ####[facility]ORATORYCLIA [id number] [address] [place] ESTIMATED GLOMERULAR FILTRATION RATE 98 mL/min/1.73m??? Normal >=60 [facility] Comment on above: Order Comment: Johncara feldman Type: BLOOD SPECIMENOrdering Facility: [facility] Address: [address] [place], [place] [id number] Result Comment: Luzmaria mated Glomerular Filtration Rate [...] GFR. Performed By: #### 1 9123-9, 2777-1, 58174-3 ####[facility] LABORATORYCLIA [id number] [place] [address] [place] Glucose [Mass/Vol] 117 mg/dL High 74-99 [facility] Comment on above: Order Comment: Shira feldman Type: BLOOD SPECIMENOrdering Facility: [facility] Address: [address] [place] [address] Result Comment: The [place] [employer] (ADA) provides guidance for cutoff [...] Standards of Medical Care in Diabetes 2016, [place] [employer]. Diabetes Care. 2016.39(Suppl 1). Performed By: #### 1 9123-9, 2777-1, 20097-0 ####[facility]ORATORYCLIA [id number] [address] STATES OF [facility] Potassium [Moles/Vol] 3.7 mmol/L Normal 3.7-5.1 [facility] Comment on above: Order Comment: Speci men Type: BLOOD SPECIMENOrdering Facility: [facility] Address: [address] [place] [address] Performed By: #### 1 9123-9, 2777-, 37901-1 ####[facility]ORATORYCLIA [id number] [address] STATES OF [facility] Sodium [Moles/Vol] 139 mmol/L Normal 136-144 [facility] Comment on above: Order Comment: Speci men Type: BLOOD SPECIMENOrdering Facility: [facility] Address: [address] [place] [address] Performed By: #### 1 9123-9, 2777-, 86104-1 ####[facility]ORATORYCLIA [id number] [address] STATES [facility] Urea nitrogen [Mass/Vol] 16 mg/dL Normal 9-24 [facility] Comment on above: Order Comment: Speci men Type: BLOOD SPECIMENOrdering Facility: [facility] Address: [address] [place] [address] Performed By: #### 1 9123-9, 2777-, 27194-8 ####[facility]ORATORYCLIA [id number] [address] OF [facility] CBC panel Auto (Bld)on 07-14 Erythrocyte distribution width (RBC) [Ratio] 16.2 % High 11.5-15.0 [facility] Comment on above: Order Comment: Speci men Type: BLOOD SPECIMENOrdering Facility: [facility] Address: [address] [place] [address] Performed By: #### 5 8410-2 ####[facility] LABORATORYCLIA [id number] [address] OF [facility] Hematocrit (Bld) [Volume fraction] 29.7 % Low 39.0-51.0 [facility] Comment on above: Order Comment: Speci men Type: BLOOD SPECIMENOrdering Facility: [facility] Address: [address] [place] [address] Performed By: #### 5 8410-2 ####[facility]ORATORYCLIA [id number] [address] Hemoglobin (Bld) [Mass/Vol] 8.8 g/dL Low 13.0-17.0 [facility] Comment on above: Order Comment: Speci men Type: BLOOD SPECIMENOrdering Facility: [facility] Address: [address] [place] [address] Performed By: #### 5 8410-2 ####[facility]ORATORYCLIA [id number] [address] MCH (RBC) [Entitic mass] 27.5 pg Normal 26.0-34.0 [facility] Comment on above: Order Comment: Speci men Type: BLOOD SPECIMENOrdering Facility: [facility] Address: [address] [place] [address] Performed By: #### 5 8410-2 ####[facility]ORATORYCLIA [id number] [address] [place] MCHC (RBC) [Mass/Vol] 29.6 g/dL Low 30.5-36.0 [facility] Comment on above: Order Comment: Speci men Type: BLOOD SPECIMENOrdering Facility: [facility] Address: [address] [place] [address] Performed By: #### 5 8410-2 ####[facility]ORATORYCLIA [id number] [address] MCV (RBC) [Entitic vol] 92.8 fL Normal 80.0-100.0 [facility] Comment on above: Order Comment: Speci men Type: BLOOD SPECIMENOrdering Facility: [facility] Address: [address] Performed By: #### 5 8410-2 ####[facility]ORATORYCLIA [id number] [address] Nucleated RBC (Bld) [#/Vol] 10*3/uL Normal <0.01 [facility] Comment on above: Order Comment: Speci men Type: BLOOD SPECIMENOrdering Facility: [facility] Address: [address] [place] [address] Performed By: #### 5 8410-2 ####[facility]ORATORYCLIA [id number] [address] Platelet mean volume (Bld) [Entitic vol] 9.6 fL Normal 9.0-12.7 [facility] Comment on above: Order Comment: Speci men Type: BLOOD SPECIMENOrdering Facility: [facility] Address: [address] [place] [address] Performed By: #### 5 8410-2 ####[facility]ORATORYCLIA [id number] [address] Platelets (Bld) [#/Vol] 354 10*3/uL Normal 150-400 [facility] Comment on above: Order Comment: Speci men Type: BLOOD SPECIMENOrdering Facility: [facility] Address: [address] [place] [address] Performed By: #### 5 8410-2 ####[facility]ORATORYCLIA [id number] [address] [place] RBC (Bld) [#/Vol] 3.20 10*6/uL Low 4.20-6.00 [facility] Comment on above: Order Comment: Speci men Type: BLOOD SPECIMENOrdering Facility: [facility] Address: [address] [place] [address] Performed By: #### 5 8410-2 ####[facility]ORATORYCLIA [id number] [address] WBC (Bld) [#/Vol] 9.41 10*3/uL Normal 3.70-11.00 [facility] Comment on above: Order Comment: Speci men Type: BLOOD SPECIMENOrdering Facility: [facility] Address: [address] [place] [address] Performed By: #### 5 8410-2 ####[facility]ORATORYCLIA [id number] [address] CONSULT PROGon 07-14-2021 CONSULT PROG Normal [facility] Magnesium SerPl-mCncon 07-14 Magnesium [Mass/Vol] 2.2 mg/dL Normal 1.7-2.3 [facility] Comment on above: Order Comment: Speci men Type: BLOOD SPECIMENOrdering Facility: [facility] Address: [address] [place] [address] Performed By: #### 1 9123-9, 2777-1, 15763-0 ####[facility]ORATORYCLIA [id number] [address] NURSING PROGon 07-14-2021 NURSING PROG Normal [facility] Phosphate SerPl-mCncon 07-14 Phosphate [Mass/Vol] 3.6 mg/dL Normal 2.7-4.8 [facility] Comment on above: Order Comment: Speci men Type: BLOOD SPECIMENOrdering Facility: [facility] Address: [address] [place] [address] Performed By: #### 1 9123-9, 2777-1, 95048-3 ####[facility]ORATORYCLIA [id number] [address] aPTT PPPon 07-14-2021 aPTT Coag (PPP) [Time] 62.9 s High 23.0-32.4 [place] Comment on above: Order Comment: Speci men Type: BLOOD SPECIMENOrdering Facility: [facility] Address: [address] [place] [address] Performed By: #### 1 4979-9 ####[facility] LABORATORYCLIA [id number] [place] [address] [place] aPTT Coag (PPP) [Time] 55.2 s High 23.0-32.[address] [place] Comment on above: Order Comment: Speci men Type: BLOOD SPECIMENOrdering Facility: [facility] Address: [address] [place] [address] Performed By: #### 1 4979-9 ####[facility] LABORATORYCLIA [id number] [place] [address] [place] Basic metabolic 2000 panelon 07-13-2021 Anion gap [Moles/Vol] 10 mmol/L Normal 9-18 [facility] Comment on above: Order Comment: Speci men Type: BLOOD SPECIMENOrdering Facility: [facility] Address: [address] [place] [address] Performed By: #### 1 9123-9, 2777-1, 16660-6 ####[facility] HOSPITALCLIA [id number] [place] [address] [place] Calcium [Mass/Vol] 8.5 mg/dL Normal 8.5-10.2 [facility] Comment on above: Order Comment: Speci men Type: BLOOD SPECIMENOrdering Facility: [facility] Address: [address] [place] [address] Performed By: #### 1 9123-9, 2777-1, 61655-8 ####[facility]ORATORYCLIA [id number] [address] [place] Chloride [Moles/Vol] 98 mmol/L Normal 97-105 [facility] Comment on above: Order Comment: Speci men Type: BLOOD SPECIMENOrdering Facility: [facility] Address: [address] [place] [address] Performed By: #### 1 9123-9, 2777-1, 22336-3 ####[facility]ORATORYCLIA [id number] [place] [address] [place] CO2 [Moles/Vol] 32 mmol/L High 22-30 [facility] Comment on above: Order Comment: Speci men Type: BLOOD SPECIMENOrdering Facility: [facility] Address: [address] [place] [address] Performed By: #### 1 9123-9, 2777-1, 69795-8 ####[facility] LABORATORYCLIA [id number] [address] [place] Creatinine [Mass/Vol] 0.75 mg/dL Normal 0.73-1.22 [facility] Comment on above: Order Comment: Speci men Type: BLOOD SPECIMENOrdering Facility: [facility] Address: [address] [place] [address] Performed By: #### 1 9123-9, 2777, 84100-0 ####[facility] HOSPITALCLIA [id number] [address] OF [facility] ESTIMATED GLOMERULAR FILTRATION RATE 98 mL/min/1.73m??? Normal >=60 [facility] Comment on above: Order Comment: Speci men Type: BLOOD SPECIMENOrdering Facility: [facility] Address: [address] [place] [address] Result Comment: Luzmaria mated Glomerular Filtration Rate [...] GFR. Performed By: #### 1 9123-9, 27771, 63609-9 ####[facility]ORATORYCLIA [id number] [address] [place] Glucose [Mass/Vol] 118 mg/dL High 74-99 [facility] Comment on above: Order Comment: Speci men Type: BLOOD SPECIMENOrdering Facility: [facility] Address: [address] [place] [address] Result Comment: The [place] [employer] (ADA) provides guidance for cutoff [...] Standards of Medical Care in Diabetes 2016, [place] [employer]. Diabetes Care. 2016.39(Suppl 1). Performed By: #### 1 9123-9, 2777-, 05167-6 ####[facility]ORATORYCLIA [id number] [place] [address] [place] Potassium [Moles/Vol] 3.6 mmol/L Low 3.7-5.1 [facility] Comment on above: Order Comment: Shira feldman Type: BLOOD SPECIMENOrdering Facility: [facility] Address: [address] [address] Performed By: #### 1 9123-9, 2777, 60628-8 ####[facility]ORATORYCLIA [id number] [place] [address] [place] Sodium [Moles/Vol] 140 mmol/L Normal 136-144 [facility] Comment on above: Order Comment: Johni francia Type: BLOOD SPECIMENOrdering Facility: [facility] Address: [address] [address] Performed By: #### 1 9123-9, 2777-, 79702-6 ####[facility]ORATORYCLIA [id number] [place] [address] [place] Urea nitrogen [Mass/Vol] 15 mg/dL Normal 9-24 [facility] Comment on above: Order Comment: Shira men Type: BLOOD SPECIMENOrdering Facility: [facility] Address: [address] [address] Performed By: #### 1 9123-9, 2777-1, 63151-9 ####[facility]ORATORYCLIA [id number] [address] OF [facility] CASE MANAGEMon 07-13-2021 CASE MANAGEM Normal [facility] CBC panel Auto (Bld)on 07-13 Erythrocyte distribution width (RBC) [Ratio] 16.2 % High 11.5-15.0 [facility] Comment on above: Order Comment: Speci men Type: BLOOD SPECIMENOrdering Facility: [facility] Address: [address] [place] [address] Performed By: #### 5 8410-2 ####[facility]ORATORYCLIA [id number] [address] Hematocrit (Bld) [Volume fraction] 29.5 % Low 39.0-51.0 [facility] Comment on above: Order Comment: Speci men Type: BLOOD SPECIMENOrdering Facility: [facility] Address: [address] [place] [address] Performed By: #### 5 8410-2 ####[facility]ORATORYCLIA [id number] [address] Hemoglobin (Bld) [Mass/Vol] 8.9 g/dL Low 13.0-17.0 [facility] Comment on above: Order Comment: Speci men Type: BLOOD SPECIMENOrdering Facility: [facility] Address: [address] [place] [address] Performed By: #### 5 8410-2 ####[facility]ORATORYCLIA [id number] [address] MCH (RBC) [Entitic mass] 27.8 pg Normal 26.0-34.0 [facility] Comment on above: Order Comment: Speci men Type: BLOOD SPECIMENOrdering Facility: [facility] Address: [address] [place] [address] Performed By: #### 5 8410-2 ####[facility] LABORATORYCLIA [id number] [address] MCHC (RBC) [Mass/Vol] 30.2 g/dL Low 30.5-36.0 [facility] Comment on above: Order Comment: Speci men Type: BLOOD SPECIMENOrdering Facility: [facility] Address: [address] [place] [address] Performed By: #### 5 8410-2 ####[facility]ORATORYCLIA [id number] [address] [place] MCV (RBC) [Entitic vol] 92.2 fL Normal 80.0-100.0 [facility] Comment on above: Order Comment: Speci men Type: BLOOD SPECIMENOrdering Facility: [facility] Address: [address] [place] [address] Performed By: #### 5 8410-2 ####[facility] LABORATORYCLIA [id number] [address] Nucleated RBC (Bld) [#/Vol] 10*3/uL Normal <0.01 [facility] Comment on above: Order Comment: Speci men Type: BLOOD SPECIMENOrdering Facility: [facility] Address: [address] [place] [address] Performed By: #### 5 8410-2 ####[facility]ORATORYCLIA [id number] [address] [place] Platelet mean volume (Bld) [Entitic vol] 9.8 fL Normal 9.0-12.7 [facility] Comment on above: Order Comment: Speci men Type: BLOOD SPECIMENOrdering Facility: [facility] Address: [address] [place] [address] Performed By: #### 5 8410-2 ####[facility] LABORATORYCLIA [id number] [address] STATES OF [facility] Platelets (Bld) [#/Vol] 356 10*3/uL Normal 150-400 [facility] Comment on above: Order Comment: Speci men Type: BLOOD SPECIMENOrdering Facility: [facility] Address: [address] [place] [address] Performed By: #### 5 8410-2 ####[facility] LABORATORYCLIA [id number] [address] OF [facility] RBC (Bld) [#/Vol] 3.20 10*6/uL Low 4.20-6.00 [facility] Comment on above: Order Comment: Speci men Type: BLOOD SPECIMENOrdering Facility: [facility] Address: [address] [place] [address] Performed By: #### 5 8410-2 ####[facility]ORATORYCLIA [id number] [address] WBC (Bld) [#/Vol] 9.20 10*3/uL Normal 3.70-11.00 [facility] Comment on above: Order Comment: Speci men Type: BLOOD SPECIMENOrdering Facility: [facility] Address: [address] [place] [address] Performed By: #### 5 8410-2 ####[facility] LABORATORYCLIA [id number] [address] [place] CONSULT PROGon 07-13-2021 CONSULT PROG Normal [facility] CONSULT PROG Normal [facility] CONSULT PROG Normal [facility] Magnesium SerPl-mCncon 07-13 Magnesium [Mass/Vol] 2.1 mg/dL Normal 1.7-2.3 [facility] Comment on above: Order Comment: Speci men Type: BLOOD SPECIMENOrdering Facility: [facility] Address: [address] [place] [address] Performed By: #### 1 9123-9, 2777-1, 36597-5 ####[facility]ORATORYCLIA [id number] [address] Phosphate SerPl-mCncon 07-13 Phosphate [Mass/Vol] 3.7 mg/dL Normal 2.7-4.8 [facility] Comment on above: Order Comment: Speci men Type: BLOOD SPECIMENOrdering Facility: [facility] Address: [address] [place] [address] Performed By: #### 1 9123-9, 2777-1, 34728-3 ####[facility] LABORATORYCLIA [id number] [address] [place] THERAPY NTon 07-13-2021 THERAPY NT Normal [facility] THERAPY NT Normal [facility] Vancomycin random [Mass/Vol] on 07-13-2021 Vancomycin [Mass/Vol] 31.7 ug/mL High 10.0-20.0 Ncr [facility] Comment on above: Order Comment: Speci men Type: BLOOD SPECIMENOrdering Facility: [facility] Address: [address] [place] [address] Result Comment: Refe rence ranges and high/low indicator flags are provided as general guidelines only. The treating physician must determine appropriate target levels/dosing based on the specific clinical situation. Performed By: #### 4 091-5 ####[facility] LABORATORYCLIA [id number] [place] [address] [place] aPTT PPPon 07-13-2021 aPTT Coag (PPP) [Time] 47.3 s High 23.0-32.4 [place] Comment on above: Order Comment: Speci men Type: BLOOD SPECIMENOrdering Facility: [facility] Address: [address] [place] [address] Performed By: #### 1 4979-9 ####[facility] LABORATORYCLIA [id number] [address] [place] aPTT Coag (PPP) [Time] 51.2 s High 23.0-32.4 [place] Comment on above: Order Comment: Speci men Type: BLOOD SPECIMENOrdering Facility: [facility] Address: [address] [place] [address] Performed By: #### 1 4979-9 ####[facility] LABORATORYCLIA [id number] [address] [place] aPTT Coag (PPP) [Time] 47.5 s High 23.0-32.[address] [place] Comment on above: Order Comment: Speci men Type: BLOOD SPECIMENOrdering Facility: [facility] Address: [address] [place] [address] Performed By: #### 1 4979-9 ####[facility] LABORATORYCLIA [id number] [place] [address] [place] Basic metabolic 2000 panelon 07-12-2021 Anion gap [Moles/Vol] 7 mmol/L Low 9-18 [facility] Comment on above: Order Comment: Speci men Type: BLOOD SPECIMENOrdering Facility: [facility] Address: [address] [place] [address] Performed By: #### 1 9123-9, 2777-1, 74515-7 ####[facility] [facility] LABORATORYCLIA [id number] [place] [address] [place] Calcium [Mass/Vol] 8.3 mg/dL Low 8.5-10.2 [facility] Comment on above: Order Comment: Speci men Type: BLOOD SPECIMENOrdering Facility: [facility] Address: [address] [place] [address] Performed By: #### 1 9123-9, 2777-, 71198-7 ####[facility] EAST LABORATORYCLIA [id number] [place] [address] [place] Chloride [Moles/Vol] 101 mmol/L Normal 97-105 [facility] Comment on above: Order Comment: Speci men Type: BLOOD SPECIMENOrdering Facility: [facility] Address: [address] [place] [address] Performed By: #### 1 9123-9, 2777, 06611-9 ####[facility] EAST LABORATORYCLIA [id number] [place] [address] [place] CO2 [Moles/Vol] 32 mmol/L High 22-30 [facility] Comment on above: Order Comment: Speci men Type: BLOOD SPECIMENOrdering Facility: [facility] Address: [address] [address] Performed By: #### 1 9123-9, 2777-1, 15844-8 ####[facility] [id number] [address] STATES OF [facility] Creatinine [Mass/Vol] 0.70 mg/dL Low 0.73-1.22 [facility] Comment on above: Order Comment: Shira feldman Type: BLOOD SPECIMENOrdering Facility: [facility] Address: [address] [address] Performed By: #### 1 9123-9, 2777-1, 12303-5 ####[facility] [id number] [address] STATES OF [facility] ESTIMATED GLOMERULAR FILTRATION RATE 100 mL/min/1.73m??? Normal >=60 [facility] Comment on above: Order Comment: Shira feldman Type: BLOOD SPECIMENOrdering Facility: [facility] Address: [address] [address] Result Comment: Luzmaria mated Glomerular Filtration Rate [...] GFR. Performed By: #### 1 9123-9, 2777-, 31383-9 ####[facility] [id number] [address] [place] Glucose [Mass/Vol] 104 mg/dL High 74-99 [facility] Comment on above: Order Comment: Shira feldman Type: BLOOD SPECIMENOrdering Facility: [facility] Address: [address] [address] Result Comment: The [place] Diabetes [employer] (ADA) provides guidance for cutoff [...] Standards of Medical Care in Diabetes 2016, [place] [employer]. Diabetes Care. 2016.39(Suppl 1). Performed By: #### 1 9123-9, 2777-, 99575-5 ####[facility] EAST LABORATORYCLIA [id number] [place] [address] [place] Potassium [Moles/Vol] 3.7 mmol/L Normal 3.7-5.1 [facility] Comment on above: Order Comment: Shira feldman Type: BLOOD SPECIMENOrdering Facility: [facility] Address: [address] [place] [address] Performed By: #### 1 9123-9, 2777, 88504-6 ####[facility] [id number] [place] [address] [place] Sodium [Moles/Vol] 140 mmol/L Normal 136-144 [facility] Comment on above: Order Comment: Shira feldman Type: BLOOD SPECIMENOrdering Facility: [facility] Address: [address] [place] [address] Performed By: #### 1 9123-9, 2777, 27391-5 ####[facility] EAST LABORATORYCLIA [id number] [place] [address] [place] Urea nitrogen [Mass/Vol] 12 mg/dL Normal 9-24 [facility] Comment on above: Order Comment: Shira feldman Type: BLOOD SPECIMENOrdering Facility: [facility] Address: [address] [place] [address] Performed By: #### 1 9123-9, 2777-, 86294-7 ####[facility] EAST LABORATORYCLIA [id number] [place] [address] [place] CBC panel Auto (Bld)on 07-12 Erythrocyte distribution width (RBC) [Ratio] 16.1 % High 11.5-15.0 [facility] Comment on above: Order Comment: Speci men Type: BLOOD SPECIMENOrdering Facility: [facility] Address: [address] [place] [address] Performed By: #### 5 8410-2 ####[facility] EAST LABORATORYCLIA [id number] [address] Hematocrit (Bld) [Volume fraction] 28.2 % Low 39.0-51.0 [facility] Comment on above: Order Comment: Speci men Type: BLOOD SPECIMENOrdering Facility: [facility] Address: [address] [place] [address] Performed By: #### 5 8410-2 ####[facility] EAST LABORATORYCLIA [id number] [address] Hemoglobin (Bld) [Mass/Vol] 8.5 g/dL Low 13.0-17.0 [facility] Comment on above: Order Comment: Speci men Type: BLOOD SPECIMENOrdering Facility: [facility] Address: [address] [place] [address] Performed By: #### 5 8410-2 ####[facility] E[facility] LABORATORYCLIA [id number] [address] MCH (RBC) [Entitic mass] 26.8 pg Normal 26.0-34.0 [facility] Comment on above: Order Comment: Speci men Type: BLOOD SPECIMENOrdering Facility: [facility] Address: [address] [place] [address] Performed By: #### 5 8410-2 ####[facility] EAST LABORATORYCLIA [id number] [address] STATES [facility] MCHC (RBC) [Mass/Vol] 30.1 g/dL Low 30.5-36.0 [facility] Comment on above: Order Comment: Speci men Type: BLOOD SPECIMENOrdering Facility: [facility] Address: [address] [address] Performed By: #### 5 8410-2 ####[facility] EAST LABORATORYCLIA [id number] [address] MCV (RBC) [Entitic vol] 89.0 fL Normal 80.0-100.0 [facility] Comment on above: Order Comment: Speci men Type: BLOOD SPECIMENOrdering Facility: [facility] Address: [address] [place] [address] Performed By: #### 5 8410-2 ####[facility] E[facility] LABORATORYCLIA [id number] [address] Nucleated RBC (Bld) [#/Vol] 10*3/uL Normal <0.01 [facility] Comment on above: Order Comment: Speci men Type: BLOOD SPECIMENOrdering Facility: [facility] Address: [address] [place] [address] Performed By: #### 5 8410-2 ####[facility] E[facility] LABORATORYCLIA [id number] [address] [place] Platelet mean volume (Bld) [Entitic vol] 9.6 fL Normal 9.0-12.7 [facility] Comment on above: Order Comment: Speci men Type: BLOOD SPECIMENOrdering Facility: [facility] Address: [address] [place] [address] Performed By: #### 5 8410-2 ####[facility] E[facility] LABORATORYCLIA [id number] [address] Platelets (Bld) [#/Vol] 340 10*3/uL Normal 150-400 [facility] Comment on above: Order Comment: Speci men Type: BLOOD SPECIMENOrdering Facility: [facility] Address: [address] [place] [address] Performed By: #### 5 8410-2 ####[facility] EAST LABORATORYCLIA [id number] [address] [place] RBC (Bld) [#/Vol] 3.17 10*6/uL Low 4.20-6.00 [facility] Comment on above: Order Comment: Speci men Type: BLOOD SPECIMENOrdering Facility: [facility] Address: [address] [place] [address] Performed By: #### 5 8410-2 ####[facility] EAST LABORATORYCLIA [id number] [address] STATES OF [facility] WBC (Bld) [#/Vol] 8.66 10*3/uL Normal 3.70-11.00 [facility] Comment on above: Order Comment: Speci men Type: BLOOD SPECIMENOrdering Facility: [facility] Address: [address] [place] [address] Performed By: #### 5 8410-2 ####[facility] E[facility] LABORATORYCLIA [id number] [address] OF [facility] CONSULTon 07-12-2021 CONSULT Normal [facility] CONSULT PROGon 07-12-2021 CONSULT PROG Normal [facility] Magnesium SerPl-mCncon 07-12 Magnesium [Mass/Vol] 2.1 mg/dL Normal 1.7-2.3 [facility] Comment on above: Order Comment: Speci men Type: BLOOD SPECIMENOrdering Facility: [facility] Address: [address] [place] [address] Performed By: #### 1 9123-9, 2777-1, 49528-6 ####[facility] LABORATORYCLIA [id number] [address] NURSING PROGon 07-12-2021 NURSING PROG Normal [facility] Phosphate SerPl-mCncon 07-12 Phosphate [Mass/Vol] 3.1 mg/dL Normal 2.7-4.8 [facility] Comment on above: Order Comment: Speci men Type: BLOOD SPECIMENOrdering Facility: [facility] Address: [address] [place] [address] Performed By: #### 1 9123-9, 2777-1, 95300-0 ####[facility] E[facility] LABORATORYCLIA [id number] [place] [address] [place] THERAPY NTon 07-12-2021 THERAPY NT Normal [facility] aPTT PPPon 07-12-2021 aPTT Coag (PPP) [Time] 49.5 s High 23.0-32.4 [place] Comment on above: Order Comment: Speci men Type: BLOOD SPECIMENOrdering Facility: [facility] Address: [address] [place] [address] Performed By: #### 1 4979-9 ####[facility] LABORATORYCLIA [id number] [address] [place] aPTT Coag (PPP) [Time] 68.0 s High 23.0-32.4 [place] Comment on above: Order Comment: Speci men Type: BLOOD SPECIMENOrdering Facility: [facility] Address: [address] [place] [address] Performed By: #### 1 4979-9 ####[facility] E[facility] LABORATORYCLIA [id number] [address] [place] aPTT Coag (PPP) [Time] 80.0 s High 23.0-32.[address] [place] Comment on above: Order Comment: Speci men Type: BLOOD SPECIMENOrdering Facility: [facility] Address: [address] [place] [address] Performed By: #### 1 4979-9 ####[facility] E[facility] LABORATORYCLIA [id number] [address] [place] CASE MGT INIT ASSESon 2021 CASE MGT INIT ASSES Normal [facility] CBC panel Auto (Bld)on 07-11 Erythrocyte distribution width (RBC) [Ratio] 16.3 % High 11.5-15.0 [facility] Comment on above: Order Comment: Speci men Type: BLOOD SPECIMENOrdering Facility: [facility] Address: [address] [place] [address] Performed By: #### 5 8410-2 ####[facility] E[facility] LABORATORYCLIA [id number] [address] Hematocrit (Bld) [Volume fraction] 28.3 % Low 39.0-51.0 [facility] Comment on above: Order Comment: Speci men Type: BLOOD SPECIMENOrdering Facility: [facility] Address: [address] [place] [address] Performed By: #### 5 8410-2 ####[facility] E[facility] LABORATORYCLIA [id number] [address] Hemoglobin (Bld) [Mass/Vol] 8.8 g/dL Low 13.0-17.0 [facility] Comment on above: Order Comment: Speci men Type: BLOOD SPECIMENOrdering Facility: [facility] Address: [address] [place] [address] Performed By: #### 5 8410-2 ####[facility] E[facility] LABORATORYCLIA [id number] [address] MCH (RBC) [Entitic mass] 27.4 pg Normal 26.0-34.0 [facility] Comment on above: Order Comment: Speci men Type: BLOOD SPECIMENOrdering Facility: [facility] Address: [address] [place] [address] Performed By: #### 5 8410-2 ####[facility] E[facility] LABORATORYCLIA [id number] [address] MCHC (RBC) [Mass/Vol] 31.1 g/dL Normal 30.5-36.0 [facility] Comment on above: Order Comment: Speci men Type: BLOOD SPECIMENOrdering Facility: [facility] Address: [address] [place] [address] Performed By: #### 5 8410-2 ####[facility] E[facility] LABORATORYCLIA [id number] [address] OF [facility] MCV (RBC) [Entitic vol] 88.2 fL Normal 80.0-100.0 [facility] Comment on above: Order Comment: Speci men Type: BLOOD SPECIMENOrdering Facility: [facility] Address: [address] [address] Performed By: #### 5 8410-2 ####[facility] E[facility] LABORATORYCLIA [id number] [address] [place] Nucleated RBC (Bld) [#/Vol] 10*3/uL Normal <0.01 [facility] Comment on above: Order Comment: Speci men Type: BLOOD SPECIMENOrdering Facility: [facility] Address: [address] [place] [address] Performed By: #### 5 8410-2 ####[facility] LABORATORYCLIA [id number] [address] [place] Platelet mean volume (Bld) [Entitic vol] 9.7 fL Normal 9.0-12.7 [facility] Comment on above: Order Comment: Speci men Type: BLOOD SPECIMENOrdering Facility: [facility] Address: [address] [address] Performed By: #### 5 8410-2 ####[facility] LABORATORYCLIA [id number] [address] [place] Platelets (Bld) [#/Vol] 315 10*3/uL Normal 150-400 [facility] Comment on above: Order Comment: Speci men Type: BLOOD SPECIMENOrdering Facility: [facility] Address: [address] Performed By: #### 5 8410-2 ####[facility] LABORATORYCLIA [id number] [address] [place] RBC (Bld) [#/Vol] 3.21 10*6/uL Low 4.20-6.00 [facility] Comment on above: Order Comment: Speci men Type: BLOOD SPECIMENOrdering Facility: [facility] Address: [address] [address] Performed By: #### 5 8410-2 ####[facility] E[facility] LABORATORYCLIA [id number] [address] [place] WBC (Bld) [#/Vol] 9.18 10*3/uL Normal 3.70-11.00 [facility] Comment on above: Order Comment: Speci men Type: BLOOD SPECIMENOrdering Facility: [facility] Address: [address] [place] [address] Performed By: #### 5 8410-2 ####[facility] E[facility] LABORATORYCLIA [id number] [address] [place] CONSULT PROGon 07-11-2021 CONSULT PROG Normal [facility] CT BRAIN WO IVCONon 07-12-[address] BRAIN WO IVCON Normal [facility] Magnesium SerPl-mCncon 07-11 Magnesium [Mass/Vol] 2.1 mg/dL Normal 1.7-2.3 [facility] Comment on above: Order Comment: Speci men Type: BLOOD SPECIMENOrdering Facility: [facility] Address: [address] [place] [address] Performed By: #### 1 9123-9, 2777-1 ####[facility] E[facility] LABORATORYCLIA [id number] [address] OF [facility] NURSING PROGon 07-11-2021 NURSING PROG Normal [facility] NURSING PROG Normal [facility] Phosphate SerPl-mCncon 07-11 Phosphate [Mass/Vol] 3.4 mg/dL Normal 2.7-4.8 [facility] Comment on above: Order Comment: Speci men Type: BLOOD SPECIMENOrdering Facility: [facility] Address: [address] [place] [address] Performed By: #### 1 9123-9, 2777-1 ####[facility] LABORATORYCLIA [id number] [address] [place] THERAPY NTon 07-11-2021 THERAPY NT Normal [facility] Vancomycin random [Mass/Vol] on 07-11-2021 Vancomycin [Mass/Vol] 28.6 ug/mL High 10.0-20.0 [facility] Comment on above: Order Comment: Speci men Type: BLOOD SPECIMENOrdering Facility: [facility] Address: [address] [place] [address] Result Comment: Refe rence ranges and high/low indicator flags are provided as general guidelines only. The treating physician must determine appropriate target levels/dosing based on the specific clinical situation. Performed By: #### 4 091-5 ####[facility] LABORATORYCLIA [id number] [address] aPTT PPPon 07-11-2021 aPTT Coag (PPP) [Time] 62.0 s High 23.0-32.[address] [place] Comment on above: Order Comment: Speci men Type: BLOOD SPECIMENOrdering Facility: [facility] Address: [address] [place] [address] Performed By: #### 1 4979-9 ####[facility]CLIA [id number] [address] aPTT Coag (PPP) [Time] 52.7 s High 23.0-32.[address] [place] Comment on above: Order Comment: Speci men Type: BLOOD SPECIMENOrdering Facility: [facility] Address: [address] [place] [address] Performed By: #### 1 4979-9 ####[facility] LABORATORYCLIA [id number] [address] aPTT Coag (PPP) [Time] 29.9 s Normal 23.0-32.[address] [place] Comment on above: Order Comment: Speci men Type: BLOOD SPECIMENOrdering Facility: [facility] Address: [address] [place] [address] Performed By: #### 1 4979-9 ####[facility] LABORATORYCLIA [id number] [address] [place] Basic metabolic 2000 panelon 07-10-2021 Anion gap [Moles/Vol] 14 mmol/L Normal 9-18 [facility] Comment on above: Order Comment: Speci men Type: BLOOD SPECIMENOrdering Facility: [facility] Address: [address] [place] [address] Performed By: #### 1 9123-9, 2776-05, 36570-3 ####[facility] LABORATORYCLIA [id number] [place] [address] [place] Calcium [Mass/Vol] 8.5 mg/dL Normal 8.5-10.2 [facility] Comment on above: Order Comment: Speci men Type: BLOOD SPECIMENOrdering Facility: [facility] Address: [address] [place] [address] Performed By: #### 1 9123-9, 27711-04, ####[facility] LABORATORYCLIA [id number] [place] [address] [place] Chloride [Moles/Vol] 100 mmol/L Normal 97-105 [facility] Comment on above: Order Comment: Speci men Type: BLOOD SPECIMENOrdering Facility: [facility] Address: [address] [place] [address] Performed By: #### 1 9123-9, 2776-05, ####[facility] LABORATORYCLIA [id number] [place] [address] [place] CO2 [Moles/Vol] 27 mmol/L Normal 22-30 [facility] Comment on above: Order Comment: Speci men Type: BLOOD SPECIMENOrdering Facility: [facility] Address: [address] [address] Performed By: #### 1 9123-9, 27711-04, 79581-3 ####[facility] LABORATORYCLIA [id number] [place] [address] [place] Creatinine [Mass/Vol] 0.66 mg/dL Low 0.73-1.22 [facility] Comment on above: Order Comment: Speci men Type: BLOOD SPECIMENOrdering Facility: [facility] Address: [address] [place] [address] Performed By: #### 1 9123-9, 2777-1, 27931-4 ####[facility] LABORATORYCLIA [id number] [address] OF [facility] ESTIMATED GLOMERULAR FILTRATION RATE 102 mL/min/1.73m??? Normal >=60 [facility] Comment on above: Order Comment: Shira feldman Type: BLOOD SPECIMENOrdering Facility: [facility] Address: [address] [place] [address] Result Comment: Luzmaria mated Glomerular Filtration Rate [...] GFR. Performed By: #### 1 9123-9, 2777-, 04762-2 ####[facility]CLIA [id number] [place] [address] [place] Glucose [Mass/Vol] 93 mg/dL Normal 74-99 [facility] Comment on above: Order Comment: Shira feldman Type: BLOOD SPECIMENOrdering Facility: [facility] Address: [address] [place] [address] Result Comment: The [place] [employer] (ADA) provides guidance for cutoff [...] Standards of Medical Care in Diabetes 2016, [place] [employer]. Diabetes Care. 2016.39(Suppl 1). Performed By: #### 1 9123-9, 2777-1, 00347-4 ####[facility] LABORATORYCLIA [id number] [address] STATES OF [facility] Potassium [Moles/Vol] 3.5 mmol/L Low 3.7-5.1 [facility] Comment on above: Order Comment: Speci men Type: BLOOD SPECIMENOrdering Facility: [facility] Address: [address] [place] [address] Performed By: #### 1 9123-9, 2777-1, 00885-8 ####[facility] LABORATORYCLIA [id number] [address] STATES [facility] Sodium [Moles/Vol] 141 mmol/L Normal 136-144 [facility] Comment on above: Order Comment: Speci men Type: BLOOD SPECIMENOrdering Facility: [facility] Address: [address] [place] [address] Performed By: #### 1 9123-9, 2777-1, 61728-8 ####[facility]CLIA [id number] [address] Urea nitrogen [Mass/Vol] 11 mg/dL Normal 9-24 [facility] Comment on above: Order Comment: Speci men Type: BLOOD SPECIMENOrdering Facility: [facility] Address: [address] [place] [address] Performed By: #### 1 9123-9, 2777-1, 32438-4 ####[facility] LABORATORYCLIA [id number] [address] CBC panel Auto (Bld)on 07-10 Erythrocyte distribution width (RBC) [Ratio] 16.2 % High 11.5-15.0 [facility] Comment on above: Order Comment: Speci men Type: BLOOD SPECIMENOrdering Facility: [facility] Address: [address] [place] [address] Performed By: #### 5 8410-2 ####[facility] LABORATORYCLIA [id number] [address] Hematocrit (Bld) [Volume fraction] 30.6 % Low 39.0-51.0 [facility] Comment on above: Order Comment: Speci men Type: BLOOD SPECIMENOrdering Facility: [facility] Address: [address] [place] [address] Performed By: #### 5 8410-2 ####[facility] LABORATORYCLIA [id number] [address] OF [facility] Hemoglobin (Bld) [Mass/Vol] 9.6 g/dL Low 13.0-17.0 [facility] Comment on above: Order Comment: Speci men Type: BLOOD SPECIMENOrdering Facility: [facility] Address: [address] [place] [address] Performed By: #### 5 8410-2 ####[facility] LABORATORYCLIA [id number] [address] STATES OF [facility] MCH (RBC) [Entitic mass] 28.3 pg Normal 26.0-34.0 [facility] Comment on above: Order Comment: Speci men Type: BLOOD SPECIMENOrdering Facility: [facility] Address: [address] [place] [address] Performed By: #### 5 8410-2 ####[facility] LABORATORYCLIA [id number] [address] MCHC (RBC) [Mass/Vol] 31.4 g/dL Normal 30.5-36.0 [facility] Comment on above: Order Comment: Speci men Type: BLOOD SPECIMENOrdering Facility: [facility] Address: [address] [place] [address] Performed By: #### 5 8410-2 ####[facility] LABORATORYCLIA [id number] [address] MCV (RBC) [Entitic vol] 90.3 fL Normal 80.0-100.0 [facility] Comment on above: Order Comment: Speci men Type: BLOOD SPECIMENOrdering Facility: [facility] Address: [address] [place] [address] Performed By: #### 5 8410-2 ####[facility] LABORATORYCLIA [id number] [address] [place] Nucleated RBC (Bld) [#/Vol] 10*3/uL Normal <0.01 [facility] Comment on above: Order Comment: Speci men Type: BLOOD SPECIMENOrdering Facility: [facility] [facility]OSP[facility] Address: [address] [place] [address] Performed By: #### 5 8410-2 ####[facility] LABORATORYCLIA [id number] [address] [place] Platelet mean volume (Bld) [Entitic vol] 9.7 fL Normal 9.0-12.7 [facility] Comment on above: Order Comment: Speci men Type: BLOOD SPECIMENOrdering Facility: [facility] Address: [address] [place] [address] Performed By: #### 5 8410-2 ####[facility] LABORATORYCLIA [id number] [address] [place] Platelets (Bld) [#/Vol] 306 10*3/uL Normal 150-400 [facility] Comment on above: Order Comment: Speci men Type: BLOOD SPECIMENOrdering Facility: [facility] Address: [address] [place] [address] Performed By: #### 5 8410-2 ####[facility] LABORATORYCLIA [id number] [address] [place] RBC (Bld) [#/Vol] 3.39 10*6/uL Low 4.20-6.00 [facility] Comment on above: Order Comment: Speci men Type: BLOOD SPECIMENOrdering Facility: [facility] Address: [address] [place] [address] Performed By: #### 5 8410-2 ####[facility] LABORATORYCLIA [id number] [address] [place] WBC (Bld) [#/Vol] 9.81 10*3/uL Normal 3.70-11.00 [facility] Comment on above: Order Comment: Speci men Type: BLOOD SPECIMENOrdering Facility: [facility] Address: [address] [place] [address] Performed By: #### 5 8410-2 ####[facility] LABORATORYCLIA [id number] [address] [place] CONSULTon 07-10-2021 CONSULT Normal [facility] CONSULT Normal [facility] Magnesium SerPl-mCncon 07-10 Magnesium [Mass/Vol] 1.9 mg/dL Normal 1.7-2.3 [facility] Comment on above: Order Comment: Speci men Type: BLOOD SPECIMENOrdering Facility: [facility] Address: [address] [place] [address] Performed By: #### 1 9123-9, 2777-1, 75688-6 ####[facility] LABORATORYCLIA [id number] [address] OF [facility] NURSING PROGon 07-10-2021 NURSING PROG Normal [facility] NURSING PROG Normal [facility] NUTRITIONon 07-10-2021 NUTRITION Normal [facility] Phosphate SerPl-mCncon 07-10 Phosphate [Mass/Vol] 3.6 mg/dL Normal 2.7-4.8 [facility] Comment on above: Order Comment: Speci men Type: BLOOD SPECIMENOrdering Facility: [facility] Address: [address] [place] [address] Performed By: #### 1 9123-9, 2777-1, 74266-1 ####[facility] LABORATORYCLIA [id number] [place] [address] [place] US DVT LOWER BILon US DVT LOWER RAINER Normal [facility] aPTT PPPon 07-10-2021 aPTT Coag (PPP) [Time] 28.8 s Normal 23.0-32.[address] [place] Comment on above: Order Comment: Speci men Type: BLOOD SPECIMENOrdering Facility: [facility] Address: [address] [place] [address] Performed By: #### 1 4979-9 ####[facility] LABORATORYCLIA [id number] [address] STATES OF [facility] aPTT Coag (PPP) [Time] 28.4 s Normal 23.0-32.[address] [place] Comment on above: Order Comment: Speci men Type: BLOOD SPECIMENOrdering Facility: [facility] Address: [address] [place] [address] Performed By: #### 1 4979-9 ####[facility]ORATORYCLIA [id number] [address] STATES OF [facility] ALLIED HEALTHon 07-09-2021 ALLIED HEALTH Normal [facility] Basic metabolic 2000 panelon 07-09-2021 Anion gap [Moles/Vol] 9 mmol/L Normal 9-18 [facility] Comment on above: Order Comment: Speci men Type: BLOOD SPECIMENOrdering Facility: [facility] Address: [address] [place] [address] Performed By: #### 1 9123-9, 2777-1, 41592-4 ####[facility] LABORATORYCLIA [id number] [place] [address] [place] Calcium [Mass/Vol] 8.3 mg/dL Low 8.5-10.2 [facility] Comment on above: Order Comment: Speci men Type: BLOOD SPECIMENOrdering Facility: [facility] Address: [address] [place] [address] Performed By: #### 1 9123-9, 2777-1, 65252-7 ####[facility] LABORATORYCLIA [id number] [place] [address] [place] Chloride [Moles/Vol] 100 mmol/L Normal 97-105 [facility] Comment on above: Order Comment: Speci men Type: BLOOD SPECIMENOrdering Facility: [facility] Address: [address] [place] [address] Performed By: #### 1 9123-9, 2776-05, ####[facility] HOSPITALCLIA [id number] [place] [address] [place] CO2 [Moles/Vol] 29 mmol/L Normal 22-30 [facility] Comment on above: Order Comment: Speci men Type: BLOOD SPECIMENOrdering Facility: [facility] Address: [address] [place] [address] Performed By: #### 1 9123-9, 2776-05, ####[facility] HOSPITALCLIA [id number] [address] STATES OF [facility] Creatinine [Mass/Vol] 0.61 mg/dL Low 0.73-1.22 [facility] Comment on above: Order Comment: Speci men Type: BLOOD SPECIMENOrdering Facility: [facility] Address: [address] [place] [address] Performed By: #### 1 9123-9, 2776-05, ####[facility]POLISIA [id number] [address] ESTIMATED GLOMERULAR FILTRATION RATE 104 mL/min/1.73m??? Normal >=60 [facility] Comment on above: Order Comment: Speci men Type: BLOOD SPECIMENOrdering Facility: [facility] Address: [address] [place] [address] Result Comment: Luzmaria mated Glomerular Filtration Rate [...] GFR. Performed By: #### 1 9123-9, 27711-04, ####[facility]ORATORYCLIA [id number] [address] [place] Glucose [Mass/Vol] 106 mg/dL High 74-99 [facility] Comment on above: Order Comment: Speci men Type: BLOOD SPECIMENOrdering Facility: [facility] Address: [address] [place], [place] [phone] Result Comment: The [place] [employer] (ADA) provides guidance for cutoff [...] Standards of Medical Care in Diabetes 2016, [place] [employer]. Diabetes Care. 2016.39(Suppl 1). Performed By: #### 1 9123-9, 2777-, 44830-3 ####[facility]ORATORYCLIA [id number] [place] [address] [place] Potassium [Moles/Vol] 3.6 mmol/L Low 3.7-5.1 [facility] Comment on above: Order Comment: Shira francia Type: BLOOD SPECIMENOrdering Facility: [facility] Address: [address] [place], [place] [phone] Performed By: #### 1 9123-9, 2777-, 02272-8 ####[facility]ORATORYCLIA [id number] [place] [address] [place] Sodium [Moles/Vol] 138 mmol/L Normal 136-144 [facility] Comment on above: Order Comment: Johni francia Type: BLOOD SPECIMENOrdering Facility: [facility] Address: [address] [place], [place] [phone] Performed By: #### 1 9123-9, 2777, 66948-0 ####[facility]ORATORYCLIA [id number] [place] [address] [place] Urea nitrogen [Mass/Vol] 12 mg/dL Normal 9-24 [facility] Comment on above: Order Comment: Speci men Type: BLOOD SPECIMENOrdering Facility: [facility] Address: [address] [place] [address] Performed By: #### 1 9123-9, 2777-1, 61300-6 ####[facility]ORATORYCLIA [id number] [address] CBC panel Auto (Bld)on 07-09 Erythrocyte distribution width (RBC) [Ratio] 16.2 % High 11.5-15.0 [facility] Comment on above: Order Comment: Speci men Type: BLOOD SPECIMENOrdering Facility: [facility] Address: [address] [place] [address] Performed By: #### 5 8410-2 ####[facility]ORATORYCLIA [id number] [address] Hematocrit (Bld) [Volume fraction] 29.0 % Low 39.0-51.0 [facility] Comment on above: Order Comment: Speci men Type: BLOOD SPECIMENOrdering Facility: [facility] Address: [address] [place] [address] Performed By: #### 5 8410-2 ####[facility]ORATORYCLIA [id number] [address] Hemoglobin (Bld) [Mass/Vol] 8.8 g/dL Low 13.0-17.0 [facility] Comment on above: Order Comment: Speci men Type: BLOOD SPECIMENOrdering Facility: [facility] Address: [address] [place] [address] Performed By: #### 5 8410-2 ####[facility]ORATORYCLIA [id number] [address] [place] MCH (RBC) [Entitic mass] 27.0 pg Normal 26.0-34.0 [facility] Comment on above: Order Comment: Speci men Type: BLOOD SPECIMENOrdering Facility: [facility] Address: [address] [place] [address] Performed By: #### 5 8410-2 ####[facility]ORATORYCLIA [id number] [address] MCHC (RBC) [Mass/Vol] 30.3 g/dL Low 30.5-36.0 [facility] Comment on above: Order Comment: Speci men Type: BLOOD SPECIMENOrdering Facility: [facility] Address: [address] [place] [address] Performed By: #### 5 8410-2 ####[facility]ORATORYCLIA [id number] [address] MCV (RBC) [Entitic vol] 89.0 fL Normal 80.0-100.0 [facility] Comment on above: Order Comment: Speci men Type: BLOOD SPECIMENOrdering Facility: [facility] Address: [address] [place] [address] Performed By: #### 5 8410-2 ####[facility]ORATORYCLIA [id number] [address] Nucleated RBC (Bld) [#/Vol] 10*3/uL Normal <0.01 [facility] Comment on above: Order Comment: Speci men Type: BLOOD SPECIMENOrdering Facility: [facility] Address: [address] [place] [address] Performed By: #### 5 8410-2 ####[facility]ORATORYCLIA [id number] [address] [place] Platelet mean volume (Bld) [Entitic vol] 9.8 fL Normal 9.0-12.7 [facility] Comment on above: Order Comment: Speci men Type: BLOOD SPECIMENOrdering Facility: [facility] Address: [address] [place] [address] Performed By: #### 5 8410-2 ####[facility]ATORYCLIA [id number] [address] [place] Platelets (Bld) [#/Vol] 281 10*3/uL Normal 150-400 [facility] Comment on above: Order Comment: Speci men Type: BLOOD SPECIMENOrdering Facility: [facility] Address: [address] [place] [address] Performed By: #### 5 8410-2 ####[facility]ORATORYCLIA [id number] [address] RBC (Bld) [#/Vol] 3.26 10*6/uL Low 4.20-6.00 [facility] Comment on above: Order Comment: Speci men Type: BLOOD SPECIMENOrdering Facility: [facility] Address: [address] [place] [address] Performed By: #### 5 8410-2 ####[facility]ATORYCLIA [id number] [address] WBC (Bld) [#/Vol] 9.12 10*3/uL Normal 3.70-11.00 [facility] Comment on above: Order Comment: Speci men Type: BLOOD SPECIMENOrdering Facility: [facility] Address: [address] [place] [address] Performed By: #### 5 8410-2 ####[facility]ORATORYCLIA [id number] [address] CONSULT PROGon 07-09-2021 CONSULT PROG Normal [facility] CONSULT PROG Normal [facility] HISTORY PHYSICALon HISTORY PHYSICAL Normal [facility] Magnesium SerPl-mCncon 07-09 Magnesium [Mass/Vol] 1.9 mg/dL Normal 1.7-2.3 [facility] Comment on above: Order Comment: Speci men Type: BLOOD SPECIMENOrdering Facility: [facility] Address: [address] [place] [address] Performed By: #### 1 9123-9, 2777-1, 68832-8 ####[facility]ORATORYCLIA [id number] [address] [place] Phosphate SerPl-mCncon 07-09 Phosphate [Mass/Vol] 3.6 mg/dL Normal 2.7-4.8 [facility] Comment on above: Order Comment: Speci men Type: BLOOD SPECIMENOrdering Facility: [facility] Address: [place] [address] Performed By: #### 1 9123-9, 2777-1, 44269-2 ####[facility]ORATORYCLIA [id number] [address] [place] THERAPY NTon 07-09-2021 THERAPY NT Normal [facility] XR ABDOMEN 1V SUPINEon 07-09 XR ABDOMEN 1V SUPINE Normal [facility] ALLIED HEALTHon 07-08-2021 ALLIED HEALTH Normal [facility] ALLIED HEALTH Normal [facility] ALLIED HEALTH Normal [facility] ANES PRE-OPon 07-08-2021 ANES PRE-OP Normal [facility] BRIEF OP NOTon 07-08-2021 BRIEF OP NOT Normal [facility] Bacteria Bld Culton 07-09-19 22 Bacteria identified Cx Nom (Bld) CULTURE, BLOOD: No growth 5 days Normal [facility] Comment on above: Performed By: #### 6 00-7 ####[facility]ORATORYCLIA [id number] [address] Bacteria identified Cx Nom (Bld) CULTURE, BLOOD: No growth 5 days Normal [facility] Comment on above: Performed By: #### 6 00-7 ####[facility]ATORYCLIA [id number] [address] [place] Bacteria CSF Culton 07-09-19 22 Bacteria identified Cx Nom (CSF) CULTURE, CSF: No growth 14 days GRAM STAIN: No organisms seen No Polymorphonuclear Leukocytes Few Red Blood Cells Gram stain performed on cytospun specimen. [facility] Comment on above: Performed By: #### 6 06-4 ####[facility]ORATORYCLIA [id number] [place] [address] [place] Bacteria Ur Culton 2 Bacteria identified Cx Nom (U) ORGANISM ID: 1 10,000 -<50,000 CFU/ml Proteus species Insignificant colony count. No further workup. ORGANISM ID: 2 <10,000 CFU/ml Normal urogenital chris Normal [facility] Comment on above: Performed By: #### 6 30-4 ####[facility]ATORYCLIA [id number] [address] Bacteria Wnd Culton 07-09-19 22 Bacteria identified Cx Nom (Wound) ORGANISM ID: 1 Coagulase negative staphylococcus Growth in Enrichment Broth Only No susceptibility testing done. Call lab within 72 hours to initiate work-up if clinically indicated. GRAM STAIN: Account credited. Not performed on this specimen type. Normal [facility] Comment on above: Performed By: #### 6 462-6 ####[facility]ATORYCLIA [id number] [address] Bacteria identified Cx Nom (Wound) ORGANISM ID: 1 Rare Coagulase negative staphylococcus No susceptibility testing done. Call lab within 72 hours to initiate work-up if clinically indicated. GRAM STAIN: Account credited. Not performed on this specimen type. Normal [facility] Comment on above: Performed By: #### 6 462-6 ####[facility]ATORYCLIA [id number] [address] Bacteria identified Cx Nom (Wound) CULTURE, INTRAOPERATIVE HARDWARE: No growth 14 days GRAM STAIN: Account credited. Not performed on this specimen type. [facility] Comment on above: Performed By: #### 6 462-6 ####[facility]ATORYCLIA [id number] [address] Basic metabolic 2000 panelon 07-08-2021 Anion gap [Moles/Vol] 9 mmol/L Normal 9-18 [facility] Comment on above: Order Comment: Speci men Type: BLOOD SPECIMENOrdering Facility: [facility] Address: [address] [place] [address] Performed By: #### 2 4321-2 ####[facility]ATORYCLIA [id number] [address] Calcium [Mass/Vol] 8.5 mg/dL Normal 8.5-10.2 [facility] Comment on above: Order Comment: Speci men Type: BLOOD SPECIMENOrdering Facility: [facility] Address: [address] [place] [address] Performed By: #### 2 4321-2 ####[facility]ATORYCLIA [id number] [place] [address] [place] Chloride [Moles/Vol] 98 mmol/L Normal 97-105 [facility] Comment on above: Order Comment: Speci men Type: BLOOD SPECIMENOrdering Facility: [facility] Address: [address] [place] [address] Performed By: #### 2 4321-2 ####[facility]ATORYCLIA [id number] [place] [address] [place] CO2 [Moles/Vol] 31 mmol/L High 22-30 [facility] Comment on above: Order Comment: Speci men Type: BLOOD SPECIMENOrdering Facility: [facility] Address: [address] [place] [address] Performed By: #### 2 4321-2 ####[facility]ATORYCLIA [id number] [place] [address] [place] Creatinine [Mass/Vol] 0.64 mg/dL Low 0.73-1.22 [facility] Comment on above: Order Comment: Speci men Type: BLOOD SPECIMENOrdering Facility: [facility] Address: [address] [place] [address] Performed By: #### 2 4321-2 ####[facility]ATORYCLIA [id number] [address] [place] ESTIMATED GLOMERULAR FILTRATION RATE 102 mL/min/1.73m??? Normal >=60 [facility] Comment on above: Order Comment: Speci men Type: BLOOD SPECIMENOrdering Facility: [facility] Address: [address] [place] [address] Result Comment: Luzmaria mated Glomerular Filtration Rate [...] Performed By: #### 2 4321-2 ####[facility]ATORYCLIA [id number] [place] [address] [place] Glucose [Mass/Vol] 114 mg/dL High 74-99 [facility] Comment on above: Order Comment: Speci men Type: BLOOD SPECIMENOrdering Facility: [facility] Address: [address] [place], [place] [phone] Result Comment: The [place] [employer] (ADA) provides guidance for cutoff [...] Standards of Medical Care in Diabetes 2016, [place] [employer]. Diabetes Care. 2016.39(Suppl 1). Performed By: #### 2 4321-2 ####[facility]ATORYCLIA [id number] [place] [address] [place] Potassium [Moles/Vol] 3.4 mmol/L Low 3.7-5.1 [facility] Comment on above: Order Comment: Speci men Type: BLOOD SPECIMENOrdering Facility: [facility] Address: [address] [place] [address] Performed By: #### 2 4321-2 ####[facility] LABORATORYCLIA [id number] [place] [id number] [place] Sodium [Moles/Vol] 138 mmol/L Normal 136-144 [facility] Comment on above: Order Comment: Speci men Type: BLOOD SPECIMENOrdering Facility: [facility] Address: [address] [place] [address] Performed By: #### 2 4321-2 ####[facility]ORATORYCLIA [id number] [address] STATES [facility] Urea nitrogen [Mass/Vol] 14 mg/dL Normal 9-24 [facility] Comment on above: Order Comment: Speci men Type: BLOOD SPECIMENOrdering Facility: [facility] Address: [address] [place] [address] Performed By: #### 2 4321-2 ####[facility]ORATORYCLIA [id number] [address] STATES OF [facility] CBC W Auto Differential pane l (Bld)on 07-08-2021 Basophils (Bld) [#/Vol] 0.05 10*3/uL Normal <0.11 [facility] Comment on above: Order Comment: Speci men Type: BLOOD SPECIMENOrdering Facility: [facility] Address: [address] [place] [address] Performed By: #### 5 7021-8 ####[facility]ORATORYCLIA [id number] [address] [place] Basophils/100 WBC (Bld) 0.4 % Normal [facility] Comment on above: Order Comment: Speci men Type: BLOOD SPECIMENOrdering Facility: [facility] Address: [address] [place] [address] Performed By: #### 5 7021-8 ####[facility]ATORYCLIA [id number] [address] STATES [facility] Differential cell count method Nom (Bld) Auto Normal [facility] Comment on above: Order Comment: Speci men Type: BLOOD SPECIMENOrdering Facility: [facility] Address: [address] [place] [address] Performed By: #### 5 7021-8 ####[facility]ORATORYCLIA [id number] [address] [place] Eosinophils (Bld) [#/Vol] 0.68 10*3/uL High <0.46 [facility] Comment on above: Order Comment: Speci men Type: BLOOD SPECIMENOrdering Facility: [facility] Address: [address] [place] [address] Performed By: #### 5 7021-8 ####[facility]ATORYCLIA [id number] [address] STATES [facility] Eosinophils/100 WBC (Bld) 5.4 % Normal [facility] Comment on above: Order Comment: Speci men Type: BLOOD SPECIMENOrdering Facility: [facility] Address: [address] [place] [address] Performed By: #### 5 7021-8 ####[facility]ORATORYCLIA [id number] [address] [place] Erythrocyte distribution width (RBC) [Ratio] 16.3 % High 11.5-15.0 [facility] Comment on above: Order Comment: Speci men Type: BLOOD SPECIMENOrdering Facility: [facility] Address: [address] [place] [address] Performed By: #### 5 7021-8 ####[facility]ATORYCLIA [id number] [address] Hematocrit (Bld) [Volume fraction] 35.7 % Low 39.0-51.0 [facility] Comment on above: Order Comment: Speci men Type: BLOOD SPECIMENOrdering Facility: [facility] Address: [address] [place] [address] Performed By: #### 5 7021-8 ####[facility]ATORYCLIA [id number] [address] [place] Hemoglobin (Bld) [Mass/Vol] 10.8 g/dL Low 13.0-17.0 [facility] Comment on above: Order Comment: Speci men Type: BLOOD SPECIMENOrdering Facility: [facility] Address: [address] [place] [address] Performed By: #### 5 7021-8 ####[facility]ATORYCLIA [id number] [address] IMMATURE GRAN % 0.4 % Normal [facility] Comment on above: Order Comment: Speci men Type: BLOOD SPECIMENOrdering Facility: [facility] Address: [address] [place] [address] Performed By: #### 5 7021-8 ####[facility] LABORATORYCLIA [id number] [address] IMMATURE GRAN ABS 0.05 k/uL Normal <0.10 [facility] Comment on above: Order Comment: Speci men Type: BLOOD SPECIMENOrdering Facility: [facility] Address: [address] [place] [address] Performed By: #### 5 7021-8 ####[facility] LABORATORYCLIA [id number] [address] [facility] Lymphocytes (Bld) [#/Vol] 1.85 10*3/uL Normal 1.00-4.00 [facility] Comment on above: Order Comment: Speci men Type: BLOOD SPECIMENOrdering Facility: [facility] Address: [address] [place] [address] Performed By: #### 5 7021-8 ####[facility] LABORATORYCLIA [id number] [address] Lymphocytes/100 WBC (Bld) 14.7 % Normal [facility] Comment on above: Order Comment: Speci men Type: BLOOD SPECIMENOrdering Facility: [facility] Address: [address] [place] [address] Performed By: #### 5 7021-8 ####[facility] LABORATORYCLIA [id number] [address] [place] MCH (RBC) [Entitic mass] 27.1 pg Normal 26.0-34.0 [facility] Comment on above: Order Comment: Speci men Type: BLOOD SPECIMENOrdering Facility: [facility] Address: [address] [place] [address] Performed By: #### 5 7021-8 ####[facility] LABORATORYCLIA [id number] [address] STATES [facility] MCHC (RBC) [Mass/Vol] 30.3 g/dL Low 30.5-36.0 [facility] Comment on above: Order Comment: Speci men Type: BLOOD SPECIMENOrdering Facility: [facility] Address: [address] [place] [address] Performed By: #### 5 7021-8 ####[facility] LABORATORYCLIA [id number] [address] [place] MCV (RBC) [Entitic vol] 89.7 fL Normal 80.0-100.0 [facility] Comment on above: Order Comment: Speci men Type: BLOOD SPECIMENOrdering Facility: [facility] Address: [address] [place] [address] Performed By: #### 5 7021-8 ####[facility] LABORATORYCLIA [id number] [address] STATES OF [facility] Monocytes (Bld) [#/Vol] 0.87 10*3/uL High <0.87 [facility] Comment on above: Order Comment: Speci men Type: BLOOD SPECIMENOrdering Facility: [facility] Address: [address] [place] [address] Performed By: #### 5 7021-8 ####[facility] LABORATORYCLIA [id number] [address] Monocytes/100 WBC (Bld) 6.9 % Normal [facility] Comment on above: Order Comment: Speci men Type: BLOOD SPECIMENOrdering Facility: [facility] Address: [address] [place] [address] Performed By: #### 5 7021-8 ####[facility] LABORATORYCLIA [id number] [address] [place] Neutrophils (Bld) [#/Vol] 9.05 10*3/uL High 1.45-7.50 [facility] Comment on above: Order Comment: Speci men Type: BLOOD SPECIMENOrdering Facility: [facility] Address: [address] [place] [address] Performed By: #### 5 7021-8 ####[facility] LABORATORYCLIA [id number] [address] Neutrophils/100 WBC (Bld) 72.2 % Normal [facility] Comment on above: Order Comment: Speci men Type: BLOOD SPECIMENOrdering Facility: [facility] Address: [address] [place] [address] Performed By: #### 5 7021-8 ####[facility] LABORATORYCLIA [id number] [address] Nucleated RBC (Bld) [#/Vol] 10*3/uL Normal <0.01 [facility] Comment on above: Order Comment: Speci men Type: BLOOD SPECIMENOrdering Facility: [facility] Address: [address] [place] [address] Performed By: #### 5 7021-8 ####[facility] LABORATORYCLIA [id number] [address] Nucleated RBC/100 WBC (Bld) [Ratio] 0.0 /100 WBC Normal [facility] Comment on above: Order Comment: Speci men Type: BLOOD SPECIMENOrdering Facility: [facility] Address: [address] [place] [address] Performed By: #### 5 7021-8 ####[facility] LABORATORYCLIA [id number] [address] [place] Platelet mean volume (Bld) [Entitic vol] 9.9 fL Normal 9.0-12.7 [facility] Comment on above: Order Comment: Speci men Type: BLOOD SPECIMENOrdering Facility: [facility] Address: [address] [place] [address] Performed By: #### 5 7021-8 ####[facility] LABORATORYCLIA [id number] [address] STATES OF [facility] Platelets (Bld) [#/Vol] 335 10*3/uL Normal 150-400 [facility] Comment on above: Order Comment: Speci men Type: BLOOD SPECIMENOrdering Facility: [facility] Address: [address] [place] [address] Performed By: #### 5 7021-8 ####[facility] LABORATORYCLIA [id number] [place] [address] [place] RBC (Bld) [#/Vol] 3.98 10*6/uL Low 4.20-6.00 [facility] Comment on above: Order Comment: Speci men Type: BLOOD SPECIMENOrdering Facility: [facility] Address: [address] [place] [address] Performed By: #### 5 7021-8 ####[facility] LABORATORYCLIA [id number] [address] [place] WBC (Bld) [#/Vol] 12.55 10*3/uL High 3.70-11.00 [facility] Comment on above: Order Comment: Speci men Type: BLOOD SPECIMENOrdering Facility: [facility] Address: [address] [place] [address] Performed By: #### 5 7021-8 ####[facility] LABORATORYCLIA [id number] [address] [place] CK CREATINE KINASEon 022 CK [Catalytic activity/Vol] 72 U/L Normal 51-298 [facility] Comment on above: Order Comment: Speci men Type: BLOOD SPECIMENOrdering Facility: [facility] Address: [address] [place] [address] Performed By: #### C K, 36080-2 ####[facility] LABORATORYCLIA [id number] [address] [place] CONSULT PROGon 07-08-2021 CONSULT PROG Normal [facility] CONSULT PROG Normal [facility] CSF MANUAL DIFFon 07-08-2021 DIF TTL, CSF 3 cells counted Normal [facility] Comment on above: Order Comment: Speci men Type: CEREBROSPINAL FLUIDOrdering Facility: [facility] Address: [address] [place] [address] Performed By: #### 3 4563-7, [id number] ####[facility] LABORATORYCLIA [id number] [place] [address] [place] LYMPH%, CSF 33 % Low 50-90 [facility] Comment on above: Order Comment: Speci men Type: CEREBROSPINAL FLUIDOrdering Facility: [facility] Address: [address] [place] [address] Performed By: #### 3 4563-7, [id number] ####[facility] LABORATORYCLIA [id number] [place] [address] [place] MONO%, CSF 67 % High 10-50 [facility] Comment on above: Order Comment: Speci men Type: CEREBROSPINAL FLUIDOrdering Facility: [facility] Address: [address] [place] [address] Performed By: #### 3 4563-7, [id number] ####[facility]ORATORYCLIA [id number] [address] [place] CT ABD/PEL W IVCONon 022 CT ABD/PEL W IVCON Normal [facility] CT BRAIN WO IVCONon 07-09-[address] BRAIN WO IVCON Normal [facility] CT BRAIN WO IVCON Normal [facility] CT CHEST W IVCON PEon 2021 CT CHEST W IVCON PE Normal [facility] Cell count panel (CSF)on Clarity (CSF) Clear Normal Clear [facility] Comment on above: Order Comment: Speci men Type: CEREBROSPINAL FLUIDOrdering Facility: [facility] Address: [address] [place] [address] Performed By: #### 3 4563-7, [id number] ####[facility]ORATORYCLIA [id number] [address] [place] Clarity (Unsp spec) Clear Normal Clear [facility] Comment on above: Order Comment: Speci men Type: CEREBROSPINAL FLUIDOrdering Facility: [facility] Address: [facility] [place] [address] Performed By: #### 3 4563-7, [id number] ####[facility]ORATORYCLIA [id number] [address] Color (CSF) Colorless Normal Colorless [facility] Comment on above: Order Comment: Speci men Type: CEREBROSPINAL FLUIDOrdering Facility: [facility] Address: [address] [place] [address] Performed By: #### 3 4563-7, [id number] ####[facility] LABORATORYCLIA [id number] [address] Color (Spun CSF) Colorless Normal Colorless [facility] Comment on above: Order Comment: Speci men Type: CEREBROSPINAL FLUIDOrdering Facility: [facility] Address: [address] [place] [address] Performed By: #### 3 4563-7, [id number] ####[facility] LABORATORYCLIA [id number] [address] CSF TUBE [employer]BER [employer] Normal [place] Comment on above: Order Comment: Speci men Type: CEREBROSPINAL FLUIDOrdering Facility: [facility] Address: [address] [place] [address] Performed By: #### 3 4563-7, [id number] ####[facility]ATORYCLIA [id number] [address] RBC Manual cnt (CSF) [#/Vol] 94 cells/uL High 0-5 [facility] Comment on above: Order Comment: Speci men Type: CEREBROSPINAL FLUIDOrdering Facility: [facility] Address: [address] [place] [address] Performed By: #### 3 4563-7, [id number] ####[facility]ORATORYCLIA [id number] [address] WBC Manual cnt (CSF) [#/Vol] 1 cells/uL Normal 0-5 [facility] Comment on above: Order Comment: Speci men Type: CEREBROSPINAL FLUIDOrdering Facility: [facility] Address: [address] [place] [address] Performed By: #### 3 4563-7, [id number] ####[facility] LABORATORYCLIA [id number] [address] OF [facility] Comprehensive metabolic 2000 panelon 07-08-2021 Albumin [Mass/Vol] 3.6 g/dL Low 3.9-4.9 [facility] Comment on above: Order Comment: Speci men Type: BLOOD SPECIMENOrdering Facility: [facility] Address: [address] [place] [address] Performed By: #### Eileen Valdivia, 69443-1 ####[facility] LABORATORYCLIA [id number] [address] [place] ALP [Catalytic activity/Vol] 125 U/L High 38-113 [facility] Comment on above: Order Comment: Speci men Type: BLOOD SPECIMENOrdering Facility: [facility] Address: [address] [place] [address] Performed By: #### Eileen Valdivia, 72634-8 ####[facility] LABORATORYCLIA [id number] [address] [place] ALT With P-5'-P [Catalytic activity/Vol] 24 U/L Normal 10-54 [facility] Comment on above: Order Comment: Speci men Type: BLOOD SPECIMENOrdering Facility: [facility] Address: [address] [place] [address] Performed By: #### Eileen Valdivia, 85355-1 ####[facility]ORATORYCLIA [id number] [address] Anion gap [Moles/Vol] 16 mmol/L Normal 9-18 [facility] Comment on above: Order Comment: Speci men Type: BLOOD SPECIMENOrdering Facility: [facility] Address: [address] [place] [address] Performed By: #### Eileen Valdivia, 92876-9 ####[facility]ORATORYCLIA [id number] [place] [address] [place] AST With P-5'-P [Catalytic activity/Vol] 21 U/L Normal 14-40 [facility] Comment on above: Order Comment: Speci men Type: BLOOD SPECIMENOrdering Facility: [facility] Address: [address] [place] [address] Performed By: #### Eileen Valdivia, 29462-5 ####[facility] LABORATORYCLIA [id number] [place] [address] [place] Bilirubin [Mass/Vol] 0.3 mg/dL Normal 0.2-1.3 [facility] Comment on above: Order Comment: Speci men Type: BLOOD SPECIMENOrdering Facility: [facility] Address: [address] [place] [address] Performed By: #### Eileen Valdivia, 15904-5 ####[facility] LABORATORYCLIA [id number] [place] [address] [place] Calcium [Mass/Vol] 8.9 mg/dL Normal 8.5-10.2 [facility] Comment on above: Order Comment: Speci men Type: BLOOD SPECIMENOrdering Facility: [facility] Address: [address] [place] [address] Performed By: #### Eileen Valdivia, 24353-4 ####[facility]ORATORYCLIA [id number] [place] [address] [place] Chloride [Moles/Vol] 96 mmol/L Low 97-105 [facility] Comment on above: Order Comment: Speci men Type: BLOOD SPECIMENOrdering Facility: [facility] Address: [address] [place] [address] Performed By: #### Eileen Valdivia, 57819-5 ####[facility] LABORATORYCLIA [id number] [place] [address] [place] CO2 [Moles/Vol] 27 mmol/L Normal 22-30 [facility] Comment on above: Order Comment: Speci men Type: BLOOD SPECIMENOrdering Facility: [facility] Address: [address] [place] [address] Performed By: #### Eileen Valdivia, 83221-5 ####[facility] LABORATORYCLIA [id number] [address] [place] Creatinine [Mass/Vol] 0.68 mg/dL Low 0.73-1.22 [facility] Comment on above: Order Comment: Speci men Type: BLOOD SPECIMENOrdering Facility: [facility] Address: [address] [place] [address] Performed By: #### Eileen Valdivia, 38725-4 ####[facility] LABORATORYCLIA [id number] [address] OF [facility] ESTIMATED GLOMERULAR FILTRATION RATE 101 mL/min/1.73m??? Normal >=60 [facility] Comment on above: Order Comment: Speci men Type: BLOOD SPECIMENOrdering Facility: [facility] Address: [address] [place] [address] Result Comment: Luzmaria mated Glomerular Filtration Rate [...] actual GFR. Performed By: #### Eileen Valdivia, 24632-8 ####[facility]ORATORYCLIA [id number] [address] [place] Glucose [Mass/Vol] 130 mg/dL High 74-99 [facility] Comment on above: Order Comment: Shira feldman Type: BLOOD SPECIMENOrdering Facility: [facility] Address: [address] [place] [address] Result Comment: The [place] [employer] (ADA) provides guidance for cutoff [...] Standards of Medical Care in Diabetes 2016, [place] [employer]. Diabetes Care. 2016.39(Suppl 1). Performed By: #### Eileen Valdivia, 30332-5 ####[facility] LABORATORYCLIA [id number] [place] [address] [place] Potassium [Moles/Vol] 3.9 mmol/L Normal 3.7-5.1 [facility] Comment on above: Order Comment: Shira feldman Type: BLOOD SPECIMENOrdering Facility: [facility] Address: [address] [place] [address] Performed By: #### Eileen Valdivia, 24509-6 ####[facility] LABORATORYCLIA [id number] [place] [address] [place] Protein [Mass/Vol] 7.0 g/dL Normal 6.3-8.0 [facility] Comment on above: Order Comment: Shira feldman Type: BLOOD SPECIMENOrdering Facility: [facility] Address: [address] [place] [address] Performed By: #### Eileen Valdivia, 41435-3 ####[facility]ORATORYCLIA [id number] [place] [address] [place] Sodium [Moles/Vol] 139 mmol/L Normal 136-144 [facility] Comment on above: Order Comment: Shira feldman Type: BLOOD SPECIMENOrdering Facility: [facility] Address: [address] [place] [address] Performed By: #### Eileen Valdivia, 99901-8 ####[facility]ORATORYCLIA [id number] [place] [address] [place] Urea nitrogen [Mass/Vol] 16 mg/dL Normal 9-24 [facility] Comment on above: Order Comment: Speci men Type: BLOOD SPECIMENOrdering Facility: [facility] Address: [address] [place], [place] [address] Performed By: #### C Skip, 36937-4 ####[facility] LABORATORYCLIA [id number] [place] [address] [facility] ED NOTEon 07-08-2021 ED NOTE HNO ID: [id number] Author: Lenora James RN Service: Emergency Medicine Author Type: Registered Nurse Type: ED Notes Filed: 07/08/2021 5:03 PM Note Text: Pt to OR with surgical team [facility] ED NOTE HNO ID: [id number] Author: Lenora James RN Service: Emergency Medicine Author Type: Registered Nurse Type: ED Notes Filed: 07/08/2021 4:50 PM Note Text: OR team to get pt [facility] ED NOTE HNO ID: [id number] Author: Lenora James RN Service: Emergency Medicine Author Type: Registered Nurse Type: ED Notes Filed: 07/08/2021 4:50 PM Note Text: Normal [facility] ED NOTE HNO ID: [id number] Author: Lenora James RN Service: Emergency Medicine Author Type: Registered Nurse Type: ED Notes Filed: 07/08/2021 4:50 PM Note Text: Spoke with presurg; pt to go to OR now [facility] ED NOTE HNO ID: [id number] Author: Lenora James RN Service: Emergency Medicine Author Type: Registered Nurse Type: ED Notes Filed: 07/08/2021 4:12 PM Note Text: Neurosurgery at beside [facility] ED NOTE HNO ID: [id number] Author: Lenora James RN Service: Emergency Medicine Author Type: Registered Nurse Type: ED Notes Filed: 07/08/2021 2:35 PM Note Text: respiratory aware of pt breathing treatments [facility] ED NOTE HNO ID: [id number] Author: Lisa Woo RN Service: ? Author Type: Registered Nurse Type: ED Notes Filed: 07/08/2021 2:20 PM Note Text: Xray notified pt is ready. Normal [facility] ED NOTE HNO ID: [id number] Author: Lenora James RN Service: Emergency Medicine Author Type: Registered Nurse Type: ED Notes Filed: 07/08/2021 12:14 PM Note Text: CT notified regarding imaging orders placed Normal [facility] ED NOTE Normal [facility] ED PROV NOTEon 07-08-2021 ED PROV NOTE Normal [facility] Glucose CSF-mCncon 2 Glucose (CSF) [Mass/Vol] 88 mg/dL High 40-70 [facility] Comment on above: Order Comment: Shira feldman Type: CEREBROSPINAL FLUIDOrdering Facility: [facility] Address: [address] [place], [place] [address] Result Comment: Lumb ar CSF glucose values of healthy patients are approximately 60% of the plasma values and must always be compared with a concurrently measured plasma value for adequate clinical interpretation.References: 1. Glucose HK (GLUC3) [package insert V 12.0 Citizen Of [place]]. [employer], [place], [place]. September 2015. 2. Michelle Moore, Loki HGarfield (2015). Chapter 7: Glucose and Lactate. F. Irina rose al.(eds.), Cerebrospinal Fluid in Clinical Neurology. [place]: [employer]. Performed By: #### 2 880-3, 2342-4 ####[facility] LABORATORYCLIA [id number] [place] [address] [place] HIGH SENSITIVITY TROPONIN To n 07-08-2021 HIGH SENSITIVITY TAMIKO 27 ng/L High <12 [facility] Comment on above: Order Comment: Shira feldman Type: BLOOD SPECIMENOrdering Facility: [facility] Address: [address] [place] [id number] Result Comment: When assessing risk for acute [...] #### H STNT ####[facility] [id number] [address] HIGH SENSITIVITY [place]AM[place] 36 ng/L High <12 [facility] Comment on above: Order Comment: Speci men Type: BLOOD SPECIMENOrdering Facility: [facility] Address: [address] [place] [address] Result Comment: When assessing risk for acute [...] #### H STNT ####[facility] [id number] [address] HISTORY PHYSICALon HISTORY PHYSICAL Normal [facility] NURSING PROGon 07-08-2021 NURSING PROG Normal [facility] OPERATIVE NOon 07-08-2021 OPERATIVE NO Normal [facility] Prot CSF-mCncon 07-08-2021 Protein (CSF) [Mass/Vol] 33 mg/dL Normal 15-45 [facility] Comment on above: Order Comment: Speci men Type: CEREBROSPINAL FLUIDOrdering Facility: [facility] Address: [address] [place] [address] Performed By: #### 2 880-3, 2342-4 ####[facility] [id number] [address] OF [facility] SARS-CoV-2 RNA Resp Ql MEGAN+p robeon 07-08-2021 SARS-CoV-2 (COVID-19) RNA MEGAN+probe Ql (Resp) COVID 19 RESULT: SARS-CoV-2 (Agent of COVID-19) Not Detected by RT-PCR or equivalent method. This test has been authorized by FDA under an Emergency Use Authorization (EUA). [facility] Comment on above: Performed By: #### 9 4500-6 ####[facility] LABORATORYCLIA [id number] [address] [place] STAPH AUREUS PCRon S. aureus and MRSA panel MEGAN+probe (Nose) Normal Negative [facility] Comment on above: Order Comment: Speci men Type: SWAB OF INTERNAL NOSEOrdering Facility: [facility] Address: [address] [place] [address] Result Comment: Nega tive for Staphylococcus aureus by PCR.Negative for MRSA by PCR Performed By: #### S APCR ####[facility] LABORATORYCLIA [id number] [place] [address] [place] Urinalysis complete panel (U )on 07-08-2021 Bacteria LM.HPF (Urine sed) [#/Area] Few Abnormal None Seen [facility] Comment on above: Order Comment: Speci men Type: URINE SPECIMENOrdering Facility: [facility] Address: [address] [place] [address] Performed By: #### 2 4356-8 ####[facility]ORATORYCLIA [id number] [place] [address] [place] Bilirubin Ql (U) Negative Normal Negative [facility] Comment on above: Order Comment: Speci men Type: URINE SPECIMENOrdering Facility: [facility] Address: [address] [place] [address] Performed By: #### 2 4356-8 ####[facility]ORATORYCLIA [id number] [address] [place] Clarity (Unsp spec) Turbid Abnormal Clear [facility] Comment on above: Order Comment: Speci men Type: URINE SPECIMENOrdering Facility: [facility] Address: [address] [place] [address] Performed By: #### 2 4356-8 ####[facility]ORATORYCLIA [id number] [address] [place] Color (U) Light Yellow Normal yellow [facility] Comment on above: Order Comment: Speci men Type: URINE SPECIMENOrdering Facility: [facility] Address: [address] [address] Performed By: #### 2 4356-8 ####[facility]ORATORYCLIA [id number] [address] Glucose Test strip (U) [Mass/Vol] Negative Normal Negative [facility] Comment on above: Order Comment: Speci men Type: URINE SPECIMENOrdering Facility: [facility] Address: [address] [place] [address] Performed By: #### 2 4356-8 ####[facility]ORATORYCLIA [id number] [address] STATES [facility] Hemoglobin Ql (U) Negative Normal Negative [facility] Comment on above: Order Comment: Speci men Type: URINE SPECIMENOrdering Facility: [facility] Address: [address] [place] [address] Performed By: #### 2 4356-8 ####[facility]ORATORYCLIA [id number] [address] Hyaline casts (Urine sed) [#/Area] 1-3 /LPF Abnormal 0 /LPF [facility] Comment on above: Order Comment: Speci men Type: URINE SPECIMENOrdering Facility: [facility] Address: [address] [place] [address] Performed By: #### 2 4356-8 ####[facility] LABORATORYCLIA [id number] [address] Ketones Ql (U) Negative Normal Negative [facility] Comment on above: Order Comment: Speci men Type: URINE SPECIMENOrdering Facility: [facility] Address: [address] [address] Performed By: #### 2 4356-8 ####[facility] LABORATORYCLIA [id number] [address] Leukocyte esterase Test strip Ql (U) Negative Normal Negative [facility] Comment on above: Order Comment: Speci men Type: URINE SPECIMENOrdering Facility: [facility] Address: [address] [address] Performed By: #### 2 4356-8 ####[facility] LABORATORYCLIA [id number] [address] Nitrite Ql (U) Negative Normal Negative [facility] Comment on above: Order Comment: Speci men Type: URINE SPECIMENOrdering Facility: [facility] Address: [address] [place] [address] Performed By: #### 2 4356-8 ####[facility] LABORATORYCLIA [id number] [address] [place] pH (U) 5.0 [pH] Normal 5.0-8.0 [facility] Comment on above: Order Comment: Speci men Type: URINE SPECIMENOrdering Facility: [facility] Address: [address] [place] [address] Performed By: #### 2 4356-8 ####[facility]ISIA [id number] [address] Protein (U) [Mass/Vol] Negative Normal Negative [place] Comment on above: Order Comment: Speci men Type: URINE SPECIMENOrdering Facility: [facility] Address: [address] [place] [address] Performed By: #### 2 4356-8 ####[facility] HOSPITALCLIA [id number] [address] RBC LM.HPF (Urine sed) [#/Area] 11-25 /HPF Abnormal 0-3 /HPF [facility] Comment on above: Order Comment: Speci men Type: URINE SPECIMENOrdering Facility: [facility] Address: [address] [place] [address] Performed By: #### 2 4356-8 ####[facility] [id number] [address] Specific gravity (U) [Rel density] 1.018 Normal 1.005-1.030 [facility] Comment on above: Order Comment: Speci men Type: URINE SPECIMENOrdering Facility: [facility] Address: [address] [place] [address] Performed By: #### 2 4356-8 ####[facility] LABORATORYCLIA [id number] [address] Urobilinogen Ql (U) Normal Normal Negative [facility] Comment on above: Order Comment: Speci men Type: URINE SPECIMENOrdering Facility: [facility] Address: [address] [place] [address] Performed By: #### 2 4356-8 ####[facility] LABORATORYCLIA [id number] [address] WBC LM.HPF (Urine sed) [#/Area] /[HPF] Abnormal 0-5 /HPF [facility] Comment on above: Order Comment: Speci men Type: URINE SPECIMENOrdering Facility: [facility] Address: [address] [place] [address] Performed By: #### 2 4356-8 ####[facility] LABORATORYCLIA [id number] [address] Vancomycin random [Mass/Vol] on 07-08-2021 Vancomycin [Mass/Vol] 31.0 ug/mL High 10.0-20.0 [facility] Comment on above: Order Comment: Speci men Type: BLOOD SPECIMENOrdering Facility: [facility] Address: [address] [place] [address] Result Comment: Refe rence ranges and high/low indicator flags are provided as general guidelines only. The treating physician must determine appropriate target levels/dosing based on the specific clinical situation. Performed By: #### 4 091-5 ####[facility] LABORATORYCLIA [id number] [address] OF [facility] XR ABD 2V SUPINE W UPR/DECUB /CTLon 07-08-2021 XR ABD 2V SUPINE W UPR/DECUB/CTL Normal [facility] XR CHEST 1V FRONTALon 2021 XR CHEST 1V FRONTAL Normal [facility] XR CHEST 1V FRONTAL Normal [facility] XR NECK SOFT TISSUE 2V AP/LA Ton 07-08-2021 XR NECK SOFT TISSUE 2V AP/LAT Normal [facility] XR SKULL 2V AP/LATon 022 XR SKULL 2V AP/LAT Normal [facility] HISTORY PHYSICALon HISTORY PHYSICAL HNO ID: [id number] Author: Amy Beltran MD Service: ? Author Type: Physician Type: HANDP Filed: 06/30/2021 6:42 PM Note Text: Connected Care Unit History and Physical Facility: [place] Level of Care: Skilled Admission Date: June [...] regarding the above plan. Total time spent [id number] and/or counseling and coordinating care on the skilled care unit for patient was approximately 45 minutes SUBJECTIVE (HISTORY) Chief Complaint: Confusion, infection, blood clot. Andrew Sifuentes is being seen today for [facility] AND management of weakness, tube feed, infected retroperitoneal infection and seizure. HPI: This is a 71 year old male who presents from [facility] with primary admitting diagnosis of [...] CT brain concerning for hydrocephalus. Tip of [employer]HICLE [employer]PA[employer]ER shunt was found to be in the [...] Code Status: (more content not included)... Normal [facility] Basic metabolic 2000 panelon 06-28-2021 Anion gap [Moles/Vol] 7 mmol/L Low 9-18 [facility] Comment on above: Order Comment: Speci men Type: BLOOD SPECIMENOrdering Facility: [facility] Address: [address] [place] [address] Performed By: #### 2 432-2, ####[facility] LABORATORYCLIA [id number] [place] [address] [place] Calcium [Mass/Vol] 8.8 mg/dL Normal 8.5-10.2 [facility] Comment on above: Order Comment: Johni men Type: BLOOD SPECIMENOrdering Facility: [facility] Address: [address] [address] Performed By: #### 2 432-2, ####[facility] LABORATORYCLIA [id number] [place] [address] [place] Chloride [Moles/Vol] 103 mmol/L Normal 97-105 [facility] Comment on above: Order Comment: Johni men Type: BLOOD SPECIMENOrdering Facility: [facility] Address: [address] [address] Performed By: #### 2 4321-2, ####[facility] LABORATORYCLIA [id number] [address] [place] CO2 [Moles/Vol] 28 mmol/L Normal 22-30 [facility] Comment on above: Order Comment: Speci men Type: BLOOD SPECIMENOrdering Facility: [facility] Address: [address] [place] [address] Performed By: #### 2 4320-06, ####[facility] HOSPITALCLIA [id number] [address] [place] Creatinine [Mass/Vol] 0.57 mg/dL Low 0.73-1.22 [facility] Comment on above: Order Comment: Speci men Type: BLOOD SPECIMENOrdering Facility: [facility] Address: [address] [place] [address] Performed By: #### 2 43205-08, ####[facility]IA [id number] [address] GFR/1.73 sq M.predicted MDRD (S/P/Bld) [Vol rate/Area] mL/min/{1.73_m2} Normal [facility] Comment on above: Order Comment: Speci men Type: BLOOD SPECIMENOrdering Facility: [facility] Address: [address] [place] [address] Result Comment: >60e GFR (Estimated GFR) Units [...] actual GFR. Performed By: #### 2 43205-08, ####[facility] LABORATORYCLIA [id number] [place] [address] [place] Glucose [Mass/Vol] 120 mg/dL High 74-99 [facility] Comment on above: Order Comment: Speci men Type: BLOOD SPECIMENOrdering Facility: [facility] Address: [address] [place] [address] Result Comment: The [place] [employer] (ADA) provides guidance for cutoff [...] Standards of Medical Care in Diabetes 2016, [place] [employer]. Diabetes Care. 2016.39(Suppl 1). Performed By: #### 2 ####[facility] LABORATORYCLIA [id number] [place] [address] [place] Potassium [Moles/Vol] 3.8 mmol/L Normal 3.7-5.1 [facility] Comment on above: Order Comment: Shira feldman Type: BLOOD SPECIMENOrdering Facility: [facility] Address: [address] [place] [address] Performed By: #### 2 ####[facility]ORATORYCLIA [id number] [place] [address] [place] Sodium [Moles/Vol] 138 mmol/L Normal 136-144 [facility] Comment on above: Order Comment: Shira feldman Type: BLOOD SPECIMENOrdering Facility: [facility] Address: [address] [place] [address] Performed By: #### 2 ####[facility]ORATORYCLIA [id number] [place] [address] [place] Urea nitrogen [Mass/Vol] 24 mg/dL Normal 9-24 [facility] Comment on above: Order Comment: Speci men Type: BLOOD SPECIMENOrdering Facility: [facility] Address: [address] [place] [address] Performed By: #### 2 4321-2, 32495-1 ####[facility] LABORATORYCLIA [id number] [address] [place] CASE MANAGEMon 06-28-2021 CASE MANAGEM Normal [facility] CBC panel Auto (Bld)on 06-28 Erythrocyte distribution width (RBC) [Ratio] 15.6 % High 11.5-15.0 [facility] Comment on above: Order Comment: Speci men Type: BLOOD SPECIMENOrdering Facility: [facility] Address: [address] [place] [address] Performed By: #### 5 8410-2 ####[facility] LABORATORYCLIA [id number] [address] [place] Hematocrit (Bld) [Volume fraction] 30.5 % Low 39.0-51.0 [facility] Comment on above: Order Comment: Speci men Type: BLOOD SPECIMENOrdering Facility: [facility] Address: [address] [place] [address] Performed By: #### 5 8410-2 ####[facility]ORATORYCLIA [id number] [address] [place] Hemoglobin (Bld) [Mass/Vol] 9.4 g/dL Low 13.0-17.0 [facility] Comment on above: Order Comment: Speci men Type: BLOOD SPECIMENOrdering Facility: [facility] Address: [address] [place] [address] Performed By: #### 5 8410-2 ####[facility]ORATORYCLIA [id number] [address] [place] MCH (RBC) [Entitic mass] 27.8 pg Normal 26.0-34.0 [facility] Comment on above: Order Comment: Speci men Type: BLOOD SPECIMENOrdering Facility: [facility] Address: [address] [place] [address] Performed By: #### 5 8410-2 ####[facility] LABORATORYCLIA [id number] [address] MCHC (RBC) [Mass/Vol] 30.8 g/dL Normal 30.5-36.0 [facility] Comment on above: Order Comment: Speci men Type: BLOOD SPECIMENOrdering Facility: [facility] Address: [address] [place] [address] Performed By: #### 5 8410-2 ####[facility]ORATORYCLIA [id number] [address] MCV (RBC) [Entitic vol] 90.2 fL Normal 80.0-100.0 [facility] Comment on above: Order Comment: Speci men Type: BLOOD SPECIMENOrdering Facility: [facility] Address: [address] [place] [address] Performed By: #### 5 8410-2 ####[facility]ORATORYCLIA [id number] [address] Nucleated RBC (Bld) [#/Vol] 10*3/uL Normal <0.01 [facility] Comment on above: Order Comment: Speci men Type: BLOOD SPECIMENOrdering Facility: [facility] Address: [address] [place] [address] Performed By: #### 5 8410-2 ####[facility]ORATORYCLIA [id number] [address] Platelet mean volume (Bld) [Entitic vol] 9.9 fL Normal 9.0-12.7 [facility] Comment on above: Order Comment: Speci men Type: BLOOD SPECIMENOrdering Facility: [facility] Address: [address] [place] [address] Performed By: #### 5 8410-2 ####[facility]ORATORYCLIA [id number] [address] Platelets (Bld) [#/Vol] 333 10*3/uL Normal 150-400 [facility] Comment on above: Order Comment: Speci men Type: BLOOD SPECIMENOrdering Facility: [facility] Address: [address] [place] [address] Performed By: #### 5 8410-2 ####[facility] LABORATORYCLIA [id number] [address] STATES OF [facility] RBC (Bld) [#/Vol] 3.38 10*6/uL Low 4.20-6.00 [facility] Comment on above: Order Comment: Speci men Type: BLOOD SPECIMENOrdering Facility: [facility] Address: [address] [place] [address] Performed By: #### 5 8410-2 ####[facility]ORATORYCLIA [id number] [address] WBC (Bld) [#/Vol] 9.71 10*3/uL Normal 3.70-11.00 [facility] Comment on above: Order Comment: Speci men Type: BLOOD SPECIMENOrdering Facility: [facility] Address: [address] [place] [address] Performed By: #### 5 8410-2 ####[facility] LABORATORYCLIA [id number] [address] CNDSon 06-28-2021 CNDS Normal [facility] CONSULT PROGon 06-28-2021 CONSULT PROG Normal [facility] Magnesium SerPl-mCncon 06-28 Magnesium [Mass/Vol] 2.2 mg/dL Normal 1.7-2.3 [facility] Comment on above: Order Comment: Speci men Type: BLOOD SPECIMENOrdering Facility: [facility] Address: [address] [place] [address] Performed By: #### 2 4321-2, 87688-8 ####[facility]ORATORYCLIA [id number] [address] Vancomycin random [Mass/Vol] on 06-28-2021 Vancomycin [Mass/Vol] 23.0 ug/mL High 10.0-20.0 [facility] Comment on above: Order Comment: Speci men Type: BLOOD SPECIMENOrdering Facility: [facility] Address: [address] [place] [address] Result Comment: Refe rence ranges and high/low indicator flags are provided as general guidelines only. The treating physician must determine appropriate target levels/dosing based on the specific clinical situation. Performed By: #### 4 091-5 ####[facility] LABORATORYCLIA [id number] [place] [address] [place] ALLIED HEALTHon 06-27-2021 ALLIED HEALTH Normal [facility] Basic metabolic 2000 panelon 06-27-2021 Anion gap [Moles/Vol] 10 mmol/L Normal 9-18 [facility] Comment on above: Order Comment: Speci men Type: BLOOD SPECIMENOrdering Facility: [facility] Address: [address] [place] [address] Performed By: #### 2 43205-08, ####[facility] LABORATORYCLIA [id number] [place] [address] [place] Calcium [Mass/Vol] 8.8 mg/dL Normal 8.5-10.2 [facility] Comment on above: Order Comment: Speci men Type: BLOOD SPECIMENOrdering Facility: [facility] Address: [address] [place] [address] Performed By: #### 2 4320-06, ####[facility]ORATORYCLIA [id number] [place] [address] [place] Chloride [Moles/Vol] 104 mmol/L Normal 97-105 [facility] Comment on above: Order Comment: Speci men Type: BLOOD SPECIMENOrdering Facility: [facility] Address: [address] [place] [address] Performed By: #### 2 43205-08, ####[facility]ORATORYCLIA [id number] [place] [address] [place] CO2 [Moles/Vol] 26 mmol/L Normal 22-30 [facility] Comment on above: Order Comment: Shira francia Type: BLOOD SPECIMENOrdering Facility: [facility] Address: [address] [place] [address] Performed By: #### 2 4321-2, ####[facility]ORATORYCLIA [id number] [place] [address] [place] Creatinine [Mass/Vol] 0.57 mg/dL Low 0.73-1.22 [facility] Comment on above: Order Comment: Shira feldman Type: BLOOD SPECIMENOrdering Facility: [facility] Address: [address] [place] [address] Performed By: #### 2 4321-2, ####[facility]ATORYCLIA [id number] [address] [place] GFR/1.73 sq M.predicted MDRD (S/P/Bld) [Vol rate/Area] mL/min/{1.73_m2} Normal [facility] Comment on above: Order Comment: Shira francia Type: BLOOD SPECIMENOrdering Facility: [facility] Address: [address] [place] [address] Result Comment: >60e GFR (Estimated GFR) Units [...] Performed By: #### 2 4321-2, ####[facility] LABORATORYCLIA [id number] [place] [address] [place] Glucose [Mass/Vol] 133 mg/dL High 74-99 [facility] Comment on above: Order Comment: Speci men Type: BLOOD SPECIMENOrdering Facility: [facility] Address: [address] [place] [address] Result Comment: The [place] [employer] (ADA) provides guidance for cutoff [...] Standards of Medical Care in Diabetes 2016, [place] [employer]. Diabetes Care. 2016.39(Suppl 1). Performed By: #### 2 43205-08, ####[facility] LABORATORYCLIA [id number] [place] [address] [place] Potassium [Moles/Vol] 4.2 mmol/L Normal 3.7-5.1 [facility] Comment on above: Order Comment: Shira men Type: BLOOD SPECIMENOrdering Facility: [facility] Address: [address] [place] [address] Performed By: #### 2 4320-06, ####[facility]ORATORYCLIA [id number] [place] [address] [place] Sodium [Moles/Vol] 140 mmol/L Normal 136-144 [facility] Comment on above: Order Comment: Speci men Type: BLOOD SPECIMENOrdering Facility: [facility] Address: [address] [place] [address] Performed By: #### 2 4320-06, ####[facility]ATORYCLIA [id number] [place] [address] [place] Urea nitrogen [Mass/Vol] 24 mg/dL Normal 9-24 [facility] Comment on above: Order Comment: Speci men Type: BLOOD SPECIMENOrdering Facility: [facility] Address: [address] [place] [address] Performed By: #### 2 4321-2, 08585-4 ####[facility] LABORATORYCLIA [id number] [address] [place] CASE MANAGEMon 06-27-2021 CASE MANAGEM Normal [facility] CBC panel Auto (Bld)on 06-27 Erythrocyte distribution width (RBC) [Ratio] 15.8 % High 11.5-15.0 [facility] Comment on above: Order Comment: Speci men Type: BLOOD SPECIMENOrdering Facility: [facility] Address: [address] [place] [address] Performed By: #### 5 8410-2 ####[facility] LABORATORYCLIA [id number] [address] [place] Hematocrit (Bld) [Volume fraction] 31.4 % Low 39.0-51.0 [facility] Comment on above: Order Comment: Speci men Type: BLOOD SPECIMENOrdering Facility: [facility] Address: [address] [place] [address] Performed By: #### 5 8410-2 ####[facility] LABORATORYCLIA [id number] [address] [place] Hemoglobin (Bld) [Mass/Vol] 9.3 g/dL Low 13.0-17.0 [facility] Comment on above: Order Comment: Speci men Type: BLOOD SPECIMENOrdering Facility: [facility] Address: [address] [place] [address] Performed By: #### 5 8410-2 ####[facility] LABORATORYCLIA [id number] [address] [place] MCH (RBC) [Entitic mass] 27.0 pg Normal 26.0-34.0 [facility] Comment on above: Order Comment: Speci men Type: BLOOD SPECIMENOrdering Facility: [facility] Address: [address] [place] [address] Performed By: #### 5 8410-2 ####[facility] LABORATORYCLIA [id number] [address] STATES [facility] MCHC (RBC) [Mass/Vol] 29.6 g/dL Low 30.5-36.0 [facility] Comment on above: Order Comment: Speci men Type: BLOOD SPECIMENOrdering Facility: [facility] Address: [address] [place] [address] Performed By: #### 5 8410-2 ####[facility] LABORATORYCLIA [id number] [address] [place] MCV (RBC) [Entitic vol] 91.3 fL Normal 80.0-100.0 [facility] Comment on above: Order Comment: Speci men Type: BLOOD SPECIMENOrdering Facility: [facility] Address: [address] [place] [address] Performed By: #### 5 8410-2 ####[facility] LABORATORYCLIA [id number] [address] [place] Nucleated RBC (Bld) [#/Vol] 10*3/uL Normal <0.01 [facility] Comment on above: Order Comment: Speci men Type: BLOOD SPECIMENOrdering Facility: [facility] Address: [address] [place] [address] Performed By: #### 5 8410-2 ####[facility] LABORATORYCLIA [id number] [address] [place] Platelet mean volume (Bld) [Entitic vol] 10.3 fL Normal 9.0-12.7 [facility] Comment on above: Order Comment: Speci men Type: BLOOD SPECIMENOrdering Facility: [facility] Address: [address] [place] [address] Performed By: #### 5 8410-2 ####[facility] LABORATORYCLIA [id number] [place] [address] [place] Platelets (Bld) [#/Vol] 359 10*3/uL Normal 150-400 [facility] Comment on above: Order Comment: Speci men Type: BLOOD SPECIMENOrdering Facility: [facility] Address: [address] [place] [address] Performed By: #### 5 8410-2 ####[facility] LABORATORYCLIA [id number] [place] [address] [place] RBC (Bld) [#/Vol] 3.44 10*6/uL Low 4.20-6.00 [facility] Comment on above: Order Comment: Speci men Type: BLOOD SPECIMENOrdering Facility: [facility] Address: [address] [place] [address] Performed By: #### 5 8410-2 ####[facility] H[facility]PITALCLIA [id number] [address] WBC (Bld) [#/Vol] 10.73 10*3/uL Normal 3.70-11.00 [facility] Comment on above: Order Comment: Speci men Type: BLOOD SPECIMENOrdering Facility: [facility] Address: [address] [place] [address] Performed By: #### 5 8410-2 ####[facility] LABORATORYCLIA [id number] [address] OF [facility] Magnesium SerPl-mCncon 06-27 Magnesium [Mass/Vol] 2.2 mg/dL Normal 1.7-2.3 [facility] Comment on above: Order Comment: Speci men Type: BLOOD SPECIMENOrdering Facility: [facility] Address: [address] [place] [address] Performed By: #### 2 4321-2, 72682-4 ####[facility] LABORATORYCLIA [id number] [address] [place] NT-proBNP SerPl-mCncon 06-27 Natriuretic peptide.B prohormone N-Terminal [Mass/Vol] 184 pg/mL High <125 [facility] Comment on above: Order Comment: Speci men Type: BLOOD SPECIMENOrdering Facility: [facility] Address: [address] [place] [address] Performed By: #### 3 3762-6 ####[facility] LABORATORYCLIA [id number] [place] [id number] [place] NUTRITIONon 06-27-2021 NUTRITION Normal [facility] THERAPY NTon 06-27-2021 THERAPY NT Normal [facility] THERAPY NT Normal [facility] XR CHEST 1V FRONTALon 2021 XR CHEST 1V FRONTAL Normal [facility] Basic metabolic 2000 panelon 06-26-2021 Anion gap [Moles/Vol] 9 mmol/L Normal 9-18 [facility] Comment on above: Order Comment: Speci men Type: BLOOD SPECIMENOrdering Facility: [facility] Address: [address] [place] [address] Performed By: #### 1 9123-9, 03192-7 ####[facility] LABORATORYCLIA [id number] [place] [address] [place] Calcium [Mass/Vol] 8.7 mg/dL Normal 8.5-10.2 [facility] Comment on above: Order Comment: Speci men Type: BLOOD SPECIMENOrdering Facility: [facility] Address: [address] [place] [address] Performed By: #### 1 9123-9, 09510-0 ####[facility] LABORATORYCLIA [id number] [place] [address] [place] Chloride [Moles/Vol] 105 mmol/L Normal 97-105 [facility] Comment on above: Order Comment: Speci men Type: BLOOD SPECIMENOrdering Facility: [facility] Address: [address] [place] [address] Performed By: #### 1 9123-9, 55522-0 ####[facility] LABORATORYCLIA [id number] [place] [address] [place] CO2 [Moles/Vol] 26 mmol/L Normal 22-30 [facility] Comment on above: Order Comment: Speci men Type: BLOOD SPECIMENOrdering Facility: [facility] Address: [address] [address] Performed By: #### 1 9123-9, 69296-0 ####[facility] HOSPITALCLIA [id number] [place] [address] [place] Creatinine [Mass/Vol] 0.56 mg/dL Low 0.73-1.22 [facility] Comment on above: Order Comment: Speci francia Type: BLOOD SPECIMENOrdering Facility: [facility] Address: [address] [place] [address] Performed By: #### 1 9123-9, 57743-0 ####[facility]POLISIA [id number] [place] [address] [place] GFR/1.73 sq M.predicted MDRD (S/P/Bld) [Vol rate/Area] mL/min/{1.73_m2} Normal [facility] Comment on above: Order Comment: Shira feldman Type: BLOOD SPECIMENOrdering Facility: [facility] Address: [address] [place] [address] Result Comment: >60e GFR (Estimated GFR) Units [...] actual GFR. Performed By: #### 1 9123-9, 44234-8 ####[facility] LABORATORYCLIA [id number] [address] [place] Glucose [Mass/Vol] 134 mg/dL High 74-99 [facility] Comment on above: Order Comment: Speci francia Type: BLOOD SPECIMENOrdering Facility: [facility] Address: [address] [address] Result Comment: The [place] [employer] (ADA) provides guidance for cutoff [...] Standards of Medical Care in Diabetes 2016, [place] [employer]. Diabetes Care. 2016.39(Suppl 1). Performed By: #### 1 91239, 97480-7 ####[facility] LABORATORYCLIA [id number] [place] [address] [place] Potassium [Moles/Vol] 3.8 mmol/L Normal 3.7-5.1 [facility] Comment on above: Order Comment: Speccara feldman Type: BLOOD SPECIMENOrdering Facility: [facility] Address: [address] [place] [address] Performed By: #### 1 912 ####[facility] LABORATORYCLIA [id number] [place] [address] [place] Sodium [Moles/Vol] 140 mmol/L Normal 136-144 [facility] Comment on above: Order Comment: Speci men Type: BLOOD SPECIMENOrdering Facility: [facility] Address: [address] [address] Performed By: #### 1 91232 ####[facility] LABORATORYCLIA [id number] [place] [address] [place] Urea nitrogen [Mass/Vol] 24 mg/dL Normal 9-24 [facility] Comment on above: Order Comment: Speci men Type: BLOOD SPECIMENOrdering Facility: [facility] Address: [address] [address] Performed By: #### 1 9123-2 ####[facility] LABORATORYCLIA [id number] [address] CBC panel Auto (Bld)on 06-26 Erythrocyte distribution width (RBC) [Ratio] 15.9 % High 11.5-15.0 [facility] Comment on above: Order Comment: Speci men Type: BLOOD SPECIMENOrdering Facility: [facility] Address: [address] [place] [address] Performed By: #### 5 8410-2 ####[facility] LABORATORYCLIA [id number] [address] Hematocrit (Bld) [Volume fraction] 29.8 % Low 39.0-51.0 [facility] Comment on above: Order Comment: Speci men Type: BLOOD SPECIMENOrdering Facility: [facility] Address: [address] [place] [address] Performed By: #### 5 8410-2 ####[facility] LABORATORYCLIA [id number] [address] Hemoglobin (Bld) [Mass/Vol] 9.1 g/dL Low 13.0-17.0 [facility] Comment on above: Order Comment: Speci men Type: BLOOD SPECIMENOrdering Facility: [facility] Address: [address] [place] [address] Performed By: #### 5 8410-2 ####[facility] LABORATORYCLIA [id number] [address] MCH (RBC) [Entitic mass] 27.8 pg Normal 26.0-34.0 [facility] Comment on above: Order Comment: Speci men Type: BLOOD SPECIMENOrdering Facility: [facility] Address: [address] [place] [address] Performed By: #### 5 8410-2 ####[facility]ORATORYCLIA [id number] [address] [place] MCHC (RBC) [Mass/Vol] 30.5 g/dL Normal 30.5-36.0 [facility] Comment on above: Order Comment: Speci men Type: BLOOD SPECIMENOrdering Facility: [facility] Address: [address] Performed By: #### 5 8410-2 ####[facility] LABORATORYCLIA [id number] [address] STATES OF [facility] MCV (RBC) [Entitic vol] 91.1 fL Normal 80.0-100.0 [facility] Comment on above: Order Comment: Speci men Type: BLOOD SPECIMENOrdering Facility: [facility] Address: [address] [place], [place] [address] Performed By: #### 5 8410-2 ####[facility]ORATORYCLIA [id number] [address] [place] Nucleated RBC (Bld) [#/Vol] 10*3/uL Normal <0.01 [facility] Comment on above: Order Comment: Speci men Type: BLOOD SPECIMENOrdering Facility: [facility] Address: [address] [address] Performed By: #### 5 8410-2 ####[facility] LABORATORYCLIA [id number] [address] [place] Platelet mean volume (Bld) [Entitic vol] 10.3 fL Normal 9.0-12.7 [facility] Comment on above: Order Comment: Speci men Type: BLOOD SPECIMENOrdering Facility: [facility] Address: [address] [place], [place] [address] Performed By: #### 5 8410-2 ####[facility]ORATORYCLIA [id number] [address] [place] Platelets (Bld) [#/Vol] 336 10*3/uL Normal 150-400 [facility] Comment on above: Order Comment: Speci men Type: BLOOD SPECIMENOrdering Facility: [facility] Address: [facility] [address] Performed By: #### 5 8410-2 ####[facility]ORATORYCLIA [id number] [address] [place] RBC (Bld) [#/Vol] 3.27 10*6/uL Low 4.20-6.00 [facility] Comment on above: Order Comment: Speci men Type: BLOOD SPECIMENOrdering Facility: [facility] Address: [address] [place] [address] Performed By: #### 5 8410-2 ####[facility]ORATORYCLIA [id number] [address] OF [facility] WBC (Bld) [#/Vol] 9.14 10*3/uL Normal 3.70-11.00 [facility] Comment on above: Order Comment: Speci men Type: BLOOD SPECIMENOrdering Facility: [facility] Address: [address] [place] [address] Performed By: #### 5 8410-2 ####[facility]ORATORYCLIA [id number] [address] CONSULT PROGon 06-26-2021 CONSULT PROG Normal [facility] Magnesium SerPl-mCncon 06-26 Magnesium [Mass/Vol] 2.2 mg/dL Normal 1.7-2.3 [facility] Comment on above: Order Comment: Speci men Type: BLOOD SPECIMENOrdering Facility: [facility] Address: [address] [place] [address] Performed By: #### 1 9123-9, 61076-8 ####[facility] LABORATORYCLIA [id number] [address] [place] NURSING PROGon 06-26-2021 NURSING PROG Normal [facility] NURSING PROG Normal [facility] Basic metabolic 2000 panelon 06-25-2021 Anion gap [Moles/Vol] 8 mmol/L Low 9-18 [facility] Comment on above: Order Comment: Speci men Type: BLOOD SPECIMENOrdering Facility: [facility] Address: [address] [place] [address] Performed By: #### 2 2, ####[facility] LABORATORYCLIA [id number] [place] [address] [place] Calcium [Mass/Vol] 8.8 mg/dL Normal 8.5-10.2 [facility] Comment on above: Order Comment: Speci men Type: BLOOD SPECIMENOrdering Facility: [facility] Address: [address] [place] [address] Performed By: #### 2 2, ####[facility]ORATORYCLIA [id number] [place] [address] [place] Chloride [Moles/Vol] 105 mmol/L Normal 97-105 [facility] Comment on above: Order Comment: Speci men Type: BLOOD SPECIMENOrdering Facility: [facility] Address: [address] [place] [address] Performed By: #### 2 4320-06, ####[facility]ORATORYCLIA [id number] [place] [address] [place] CO2 [Moles/Vol] 27 mmol/L Normal 22-30 [facility] Comment on above: Order Comment: Speci men Type: BLOOD SPECIMENOrdering Facility: [facility] Address: [address] [place] [address] Performed By: #### 2 4320-06, ####[facility]ORATORYCLIA [id number] [place] [address] [place] Creatinine [Mass/Vol] 0.59 mg/dL Low 0.73-1.22 [facility] Comment on above: Order Comment: Speci men Type: BLOOD SPECIMENOrdering Facility: [facility] Address: [address] [place] [address] Performed By: #### 2 2, ####[facility] LABORATORYCLIA [id number] [place] [address] [place] GFR/1.73 sq M.predicted MDRD (S/P/Bld) [Vol rate/Area] mL/min/{1.73_m2} Normal [facility] Comment on above: Order Comment: Shira feldman Type: BLOOD SPECIMENOrdering Facility: [facility] Address: [address] [place] [address] Result Comment: >60e GFR (Estimated GFR) Units [...] Performed By: #### 2 4321-2, ####[facility]ORATORYCLIA [id number] [place] [address] [place] Glucose [Mass/Vol] 132 mg/dL High 74-99 [facility] Comment on above: Order Comment: Johncara feldman Type: BLOOD SPECIMENOrdering Facility: [facility] Address: [address] [place] [address] Result Comment: The [place] [employer] (ADA) provides guidance for cutoff [...] Standards of Medical Care in Diabetes 2016, [place] [employer]. Diabetes Care. 2016.39(Suppl 1). Performed By: #### 2 4321-2, ####[facility]ORATORYCLIA [id number] [place] [address] [place] Potassium [Moles/Vol] 3.9 mmol/L Normal 3.7-5.1 [facility] Comment on above: Order Comment: Speci men Type: BLOOD SPECIMENOrdering Facility: [facility] Address: [address] [address] Performed By: #### 2 4321-2, ####[facility]ORATORYCLIA [id number] [address] STATES [facility] Sodium [Moles/Vol] 140 mmol/L Normal 136-144 [facility] Comment on above: Order Comment: Speci men Type: BLOOD SPECIMENOrdering Facility: [facility] Address: [address] [place] [address] Performed By: #### 2 4321-2, ####[facility]ORATORYCLIA [id number] [address] STATES OF [facility] Urea nitrogen [Mass/Vol] 24 mg/dL Normal 9-24 [facility] Comment on above: Order Comment: Speci men Type: BLOOD SPECIMENOrdering Facility: [facility] Address: [address] [place] [address] Performed By: #### 2 4322, ####[facility]ORATORYCLIA [id number] [address] [place] CASE MANAGEMon 06-25-2021 CASE MANAGEM Normal [facility] CBC panel Auto (Bld)on 06-25 Erythrocyte distribution width (RBC) [Ratio] 15.9 % High 11.5-15.0 [facility] Comment on above: Order Comment: Speci men Type: BLOOD SPECIMENOrdering Facility: [facility] Address: [address] [place] [address] Performed By: #### 5 8410-2 ####[facility]ORATORYCLIA [id number] [address] OF [facility] Hematocrit (Bld) [Volume fraction] 31.0 % Low 39.0-51.0 [facility] Comment on above: Order Comment: Speci men Type: BLOOD SPECIMENOrdering Facility: [facility] Address: [address] [place] [address] Performed By: #### 5 8410-2 ####[facility]ORATORYCLIA [id number] [address] Hemoglobin (Bld) [Mass/Vol] 9.4 g/dL Low 13.0-17.0 [facility] Comment on above: Order Comment: Speci men Type: BLOOD SPECIMENOrdering Facility: [facility] Address: [address] [place] [address] Performed By: #### 5 8410-2 ####[facility]ORATORYCLIA [id number] [address] MCH (RBC) [Entitic mass] 28.1 pg Normal 26.0-34.0 [facility] Comment on above: Order Comment: Speci men Type: BLOOD SPECIMENOrdering Facility: [facility] Address: [address] [place] [address] Performed By: #### 5 8410-2 ####[facility]ORATORYCLIA [id number] [address] MCHC (RBC) [Mass/Vol] 30.3 g/dL Low 30.5-36.0 [facility] Comment on above: Order Comment: Speci men Type: BLOOD SPECIMENOrdering Facility: [facility] Address: [address] [place] [address] Performed By: #### 5 8410-2 ####[facility]ORATORYCLIA [id number] [address] MCV (RBC) [Entitic vol] 92.5 fL Normal 80.0-100.0 [facility] Comment on above: Order Comment: Speci men Type: BLOOD SPECIMENOrdering Facility: [facility] Address: [address] [place] [address] Performed By: #### 5 8410-2 ####[facility]ORATORYCLIA [id number] [address] [place] Nucleated RBC (Bld) [#/Vol] 10*3/uL Normal <0.01 [facility] Comment on above: Order Comment: Speci men Type: BLOOD SPECIMENOrdering Facility: [facility] Address: [address] [place] [address] Performed By: #### 5 8410-2 ####[facility]ORATORYCLIA [id number] [address] [place] Platelet mean volume (Bld) [Entitic vol] 10.5 fL Normal 9.0-12.7 [facility] Comment on above: Order Comment: Speci men Type: BLOOD SPECIMENOrdering Facility: [facility] Address: [address] [place] [address] Performed By: #### 5 8410-2 ####[facility]ATORYCLIA [id number] [address] [place] Platelets (Bld) [#/Vol] 311 10*3/uL Normal 150-400 [facility] Comment on above: Order Comment: Speci men Type: BLOOD SPECIMENOrdering Facility: [facility] Address: [address] [place] [address] Performed By: #### 5 8410-2 ####[facility]ORATORYCLIA [id number] [address] [place] RBC (Bld) [#/Vol] 3.35 10*6/uL Low 4.20-6.00 [facility] Comment on above: Order Comment: Speci men Type: BLOOD SPECIMENOrdering Facility: [facility] Address: [address] [place] [address] Performed By: #### 5 8410-2 ####[facility]ATORYCLIA [id number] [address] [place] WBC (Bld) [#/Vol] 9.57 10*3/uL Normal 3.70-11.00 [facility] Comment on above: Order Comment: Speci men Type: BLOOD SPECIMENOrdering Facility: [facility] Address: [address] [place] [address] Performed By: #### 5 8410-2 ####[facility]ORATORYCLIA [id number] [place] [address] [place] Magnesium SerPl-mCncon 06-25 Magnesium [Mass/Vol] 2.4 mg/dL High 1.7-2.3 [facility] Comment on above: Order Comment: Speci men Type: BLOOD SPECIMENOrdering Facility: [facility] Address: [address] [place] [address] Performed By: #### 2 4321-2, 64310-3 ####[facility]ATORYCLIA [id number] [place] [address] [place] Basic metabolic 2000 panelon 06-24-2021 Anion gap [Moles/Vol] 9 mmol/L Normal 9-18 [facility] Comment on above: Order Comment: Speci men Type: BLOOD SPECIMENOrdering Facility: [facility] Address: [address] [place] [address] Performed By: #### 1 9123-9, 33497-1 ####[facility]ORATORYCLIA [id number] [place] [address] [place] Calcium [Mass/Vol] 8.6 mg/dL Normal 8.5-10.2 [facility] Comment on above: Order Comment: Speci men Type: BLOOD SPECIMENOrdering Facility: [facility] Address: [address] [place] [address] Performed By: #### 1 9123-9, 95394-4 ####[facility]ORATORYCLIA [id number] [place] [address] [place] Chloride [Moles/Vol] 103 mmol/L Normal 97-105 [facility] Comment on above: Order Comment: Speci men Type: BLOOD SPECIMENOrdering Facility: [facility] Address: [address] [place] [address] Performed By: #### 1 9123-9, 53577-7 ####[facility]ORATORYCLIA [id number] [place] [address] [place] CO2 [Moles/Vol] 26 mmol/L Normal 22-30 [facility] Comment on above: Order Comment: Shira feldman Type: BLOOD SPECIMENOrdering Facility: [facility] Address: [address] [place] [address] Performed By: #### 1 9123-9, 86162-8 ####[facility]ITALCLIA [id number] [address] [place] Creatinine [Mass/Vol] 0.60 mg/dL Low 0.73-1.22 [facility] Comment on above: Order Comment: Shira feldman Type: BLOOD SPECIMENOrdering Facility: [facility] Address: [address] [place] [address] Performed By: #### 1 9123-9, 30107-0 ####[facility]ITALCLIA [id number] [address] STATES OF [facility] GFR/1.73 sq M.predicted MDRD (S/P/Bld) [Vol rate/Area] mL/min/{1.73_m2} Normal [facility] Comment on above: Order Comment: Shira feldman Type: BLOOD SPECIMENOrdering Facility: [facility] Address: [address] [place] [address] Result Comment: >60e GFR (Estimated GFR) Units [...] actual GFR. Performed By: #### 1 9123-9, 36362-8 ####[facility] LABORATORYCLIA [id number] [place] [id number] [place] Glucose [Mass/Vol] 126 mg/dL High 74-99 [facility] Comment on above: Order Comment: Speci men Type: BLOOD SPECIMENOrdering Facility: [facility] Address: [address] [place] [address] Result Comment: The [place] [employer] (ADA) provides guidance for cutoff [...] Standards of Medical Care in Diabetes 2016, [place] [employer]. Diabetes Care. 2016.39(Suppl 1). Performed By: #### 1 9123-9, 45851-6 ####[facility]ORATORYCLIA [id number] [place] [address] [place] Potassium [Moles/Vol] 3.9 mmol/L Normal 3.7-5.1 [facility] Comment on above: Order Comment: Johni francia Type: BLOOD SPECIMENOrdering Facility: [facility] Address: [address] [place] [address] Performed By: #### 1 9123-9, 32327-4 ####[facility]ORATORYCLIA [id number] [place] [address] [place] Sodium [Moles/Vol] 138 mmol/L Normal 136-144 [facility] Comment on above: Order Comment: Speci men Type: BLOOD SPECIMENOrdering Facility: [facility] Address: [address] [place] [address] Performed By: #### 1 9123-9, 87394-9 ####[facility]ATORYCLIA [id number] [place] [address] [place] Urea nitrogen [Mass/Vol] 24 mg/dL Normal 9-24 [facility] Comment on above: Order Comment: Speci men Type: BLOOD SPECIMENOrdering Facility: [facility] Address: [address] [place] [address] Performed By: #### 1 9123-9, 88607-2 ####[facility]ORATORYCLIA [id number] [address] [place] CASE MANAGEMon 06-24-2021 CASE MANAGEM Normal [facility] CASE MANAGEM Normal [facility] CASE MANAGEM Normal [facility] CBC panel Auto (Bld)on 06-24 Erythrocyte distribution width (RBC) [Ratio] 16.1 % High 11.5-15.0 [facility] Comment on above: Order Comment: Speci men Type: BLOOD SPECIMENOrdering Facility: [facility] Address: [address] [place] [address] Performed By: #### 5 8410-2 ####[facility]ORATORYCLIA [id number] [address] [place] Hematocrit (Bld) [Volume fraction] 31.7 % Low 39.0-51.0 [facility] Comment on above: Order Comment: Speci men Type: BLOOD SPECIMENOrdering Facility: [facility] Address: [address] [place] [address] Performed By: #### 5 8410-2 ####[facility]ATORYCLIA [id number] [place] [address] [place] Hemoglobin (Bld) [Mass/Vol] 9.7 g/dL Low 13.0-17.0 [facility] Comment on above: Order Comment: Speci men Type: BLOOD SPECIMENOrdering Facility: [facility] Address: [address] [place] [address] Performed By: #### 5 8410-2 ####[facility] LABORATORYCLIA [id number] [address] [place] MCH (RBC) [Entitic mass] 28.0 pg Normal 26.0-34.0 [facility] Comment on above: Order Comment: Speci men Type: BLOOD SPECIMENOrdering Facility: [facility] Address: [address] [place] [address] Performed By: #### 5 8410-2 ####[facility] LABORATORYCLIA [id number] [address] MCHC (RBC) [Mass/Vol] 30.6 g/dL Normal 30.5-36.0 [facility] Comment on above: Order Comment: Speci men Type: BLOOD SPECIMENOrdering Facility: [facility] Address: [address] [place] [address] Performed By: #### 5 8410-2 ####[facility] LABORATORYCLIA [id number] [address] MCV (RBC) [Entitic vol] 91.4 fL Normal 80.0-100.0 [facility] Comment on above: Order Comment: Speci men Type: BLOOD SPECIMENOrdering Facility: [facility] Address: [address] [place] [address] Performed By: #### 5 8410-2 ####[facility] LABORATORYCLIA [id number] [address] Nucleated RBC (Bld) [#/Vol] 10*3/uL Normal <0.01 [facility] Comment on above: Order Comment: Speci men Type: BLOOD SPECIMENOrdering Facility: [facility] Address: [address] [place] [address] Performed By: #### 5 8410-2 ####[facility] LABORATORYCLIA [id number] [address] Platelet mean volume (Bld) [Entitic vol] 11.0 fL Normal 9.0-12.7 [facility] Comment on above: Order Comment: Speci men Type: BLOOD SPECIMENOrdering Facility: [facility] Address: [address] [place] [address] Performed By: #### 5 8410-2 ####[facility] LABORATORYCLIA [id number] [address] OF [facility] Platelets (Bld) [#/Vol] 358 10*3/uL Normal 150-400 [facility] Comment on above: Order Comment: Speci men Type: BLOOD SPECIMENOrdering Facility: [facility] Address: [address] [place] [address] Performed By: #### 5 8410-2 ####[facility] LABORATORYCLIA [id number] [place] [address] [place] RBC (Bld) [#/Vol] 3.47 10*6/uL Low 4.20-6.00 [facility] Comment on above: Order Comment: Speci men Type: BLOOD SPECIMENOrdering Facility: [facility] Address: [address] [place] [address] Performed By: #### 5 8410-2 ####[facility] LABORATORYCLIA [id number] [address] WBC (Bld) [#/Vol] 10.07 10*3/uL Normal 3.70-11.00 [facility] Comment on above: Order Comment: Speci men Type: BLOOD SPECIMENOrdering Facility: [facility] Address: [address] [place] [address] Performed By: #### 5 8410-2 ####[facility] LABORATORYCLIA [id number] [address] [place] Magnesium SerPl-mCncon 06-24 Magnesium [Mass/Vol] 2.3 mg/dL Normal 1.7-2.3 [facility] Comment on above: Order Comment: Speci men Type: BLOOD SPECIMENOrdering Facility: [facility] Address: [address] [place] [address] Performed By: #### 1 9123-9, 98314-7 ####[facility] LABORATORYCLIA [id number] [place] [address] [place] ALLIED HEALTHon 06-23-2021 ALLIED HEALTH Normal [facility] Basic metabolic 2000 panelon 06-23-2021 Anion gap [Moles/Vol] 9 mmol/L Normal 9-18 [facility] Comment on above: Order Comment: Speci men Type: BLOOD SPECIMENOrdering Facility: [facility] Address: [address] [place] [address] Performed By: #### 1 23-9, 61890-1 ####[facility]ORATORYCLIA [id number] [place] [address] [place] Calcium [Mass/Vol] 8.4 mg/dL Low 8.5-10.2 [facility] Comment on above: Order Comment: Speci men Type: BLOOD SPECIMENOrdering Facility: [facility] Address: [address] [place] [address] Performed By: #### 1 9, 00600-2 ####[facility] LABORATORYCLIA [id number] [place] [address] [place] Chloride [Moles/Vol] 104 mmol/L Normal 97-105 [facility] Comment on above: Order Comment: Speci men Type: BLOOD SPECIMENOrdering Facility: [facility] Address: [address] [place] [address] Performed By: #### 1 9, ####[facility]ORATORYCLIA [id number] [place] [address] [place] CO2 [Moles/Vol] 26 mmol/L Normal 22-30 [facility] Comment on above: Order Comment: Speci men Type: BLOOD SPECIMENOrdering Facility: [facility] Address: [address] [place] [address] Performed By: #### 1 239, 02331-2 ####[facility]ORATORYCLIA [id number] [place] [address] [place] Creatinine [Mass/Vol] 0.62 mg/dL Low 0.73-1.22 [facility] Comment on above: Order Comment: Speci men Type: BLOOD SPECIMENOrdering Facility: [facility] Address: [address] [place] [address] Performed By: #### 1 9123-9, 37088-2 ####[facility] LABORATORYCLIA [id number] [place] [id number] [place] GFR/1.73 sq M.predicted MDRD (S/P/Bld) [Vol rate/Area] mL/min/{1.73_m2} Normal [facility] Comment on above: Order Comment: Shira feldman Type: BLOOD SPECIMENOrdering Facility: [facility] Address: [address] [place], [place] [phone] Result Comment: >60e GFR (Estimated GFR) Units [...] actual GFR. Performed By: #### 1 9123-9, 40365-2 ####[facility] LABORATORYCLIA [id number] [place] [address] [place] Glucose [Mass/Vol] 111 mg/dL High 74-99 [facility] Comment on above: Order Comment: Shira feldman Type: BLOOD SPECIMENOrdering Facility: [facility] Address: [address] [place], [place] [phone] Result Comment: The [place] [employer] (ADA) provides guidance for cutoff [...] Standards of Medical Care in Diabetes 2016, [place] [employer]. Diabetes Care. 2016.39(Suppl 1). Performed By: #### 1 9123-9, 84989-6 ####[facility]ORATORYCLIA [id number] [address] [place] Potassium [Moles/Vol] 4.1 mmol/L Normal 3.7-5.1 [facility] Comment on above: Order Comment: Speci men Type: BLOOD SPECIMENOrdering Facility: [facility] Address: [address] [place] [address] Performed By: #### 1 9123-9, 62782-8 ####[facility]ORATORYCLIA [id number] [address] STATES OF [facility] Sodium [Moles/Vol] 139 mmol/L Normal 136-144 [facility] Comment on above: Order Comment: Speci men Type: BLOOD SPECIMENOrdering Facility: [facility] Address: [address] [place] [address] Performed By: #### 1 9123-9, 92389-7 ####[facility]ORATORYCLIA [id number] [address] [place] Urea nitrogen [Mass/Vol] 26 mg/dL High 9-24 [facility] Comment on above: Order Comment: Speci men Type: BLOOD SPECIMENOrdering Facility: [facility] Address: [address] [place] [address] Performed By: #### 1 9123-9, 71203-6 ####[facility]ORATORYCLIA [id number] [address] [place] CASE MANAGEMon 06-23-2021 CASE MANAGEM Normal [facility] CBC panel Auto (Bld)on 06-23 Erythrocyte distribution width (RBC) [Ratio] 16.0 % High 11.5-15.0 [facility] Comment on above: Order Comment: Speci men Type: BLOOD SPECIMENOrdering Facility: [facility] Address: [address] [place] [address] Performed By: #### 5 8410-2 ####[facility]ORATORYCLIA [id number] [address] Hematocrit (Bld) [Volume fraction] 31.1 % Low 39.0-51.0 [facility] Comment on above: Order Comment: Speci men Type: BLOOD SPECIMENOrdering Facility: [facility] Address: [address] [place] [address] Performed By: #### 5 8410-2 ####[facility]ORATORYCLIA [id number] [address] Hemoglobin (Bld) [Mass/Vol] 9.5 g/dL Low 13.0-17.0 [facility] Comment on above: Order Comment: Speci men Type: BLOOD SPECIMENOrdering Facility: [facility] Address: [address] [place] [address] Performed By: #### 5 8410-2 ####[facility]ORATORYCLIA [id number] [address] MCH (RBC) [Entitic mass] 28.1 pg Normal 26.0-34.0 [facility] Comment on above: Order Comment: Speci men Type: BLOOD SPECIMENOrdering Facility: [facility] Address: [address] [place] [address] Performed By: #### 5 8410-2 ####[facility]ORATORYCLIA [id number] [address] MCHC (RBC) [Mass/Vol] 30.5 g/dL Normal 30.5-36.0 [facility] Comment on above: Order Comment: Speci men Type: BLOOD SPECIMENOrdering Facility: [facility] Address: [address] [place] [address] Performed By: #### 5 8410-2 ####[facility]ORATORYCLIA [id number] [address] MCV (RBC) [Entitic vol] 92.0 fL Normal 80.0-100.0 [facility] Comment on above: Order Comment: Speci men Type: BLOOD SPECIMENOrdering Facility: [facility] Address: [address] Performed By: #### 5 8410-2 ####[facility]ORATORYCLIA [id number] [address] Nucleated RBC (Bld) [#/Vol] 10*3/uL Normal <0.01 [facility] Comment on above: Order Comment: Speci men Type: BLOOD SPECIMENOrdering Facility: [facility] Address: [address] [place] [address] Performed By: #### 5 8410-2 ####[facility] LABORATORYCLIA [id number] [address] [place] Platelet mean volume (Bld) [Entitic vol] 11.0 fL Normal 9.0-12.7 [facility] Comment on above: Order Comment: Speci men Type: BLOOD SPECIMENOrdering Facility: [facility] Address: [address] [place] [address] Performed By: #### 5 8410-2 ####[facility]ORATORYCLIA [id number] [address] [place] Platelets (Bld) [#/Vol] 361 10*3/uL Normal 150-400 [facility] Comment on above: Order Comment: Speci men Type: BLOOD SPECIMENOrdering Facility: [facility] Address: [address] Performed By: #### 5 8410-2 ####[facility]ORATORYCLIA [id number] [address] [place] RBC (Bld) [#/Vol] 3.38 10*6/uL Low 4.20-6.00 [facility] Comment on above: Order Comment: Speci men Type: BLOOD SPECIMENOrdering Facility: [facility] Address: [address] [place] [address] Performed By: #### 5 8410-2 ####[facility]ORATORYCLIA [id number] [address] OF [facility] WBC (Bld) [#/Vol] 9.02 10*3/uL Normal 3.70-11.00 [facility] Comment on above: Order Comment: Speci men Type: BLOOD SPECIMENOrdering Facility: [facility] Address: [address] [place] [address] Performed By: #### 5 8410-2 ####[facility]ORATORYCLIA [id number] [address] OF [facility] CONSULT PROGon 06-23-2021 CONSULT PROG Normal [facility] CONSULT PROG Normal [facility] Magnesium SerPl-mCncon 06-23 Magnesium [Mass/Vol] 2.4 mg/dL High 1.7-2.3 [facility] Comment on above: Order Comment: Speci men Type: BLOOD SPECIMENOrdering Facility: [facility] Address: [address] [place] [address] Performed By: #### 1 9123-9, 37297-7 ####[facility]ORATORYCLIA [id number] [address] THERAPY NTon 06-23-2021 THERAPY NT Normal [facility] Vancomycin random [Mass/Vol] on 06-23-2021 Vancomycin [Mass/Vol] 22.8 ug/mL High 10.0-20.0 [facility] Comment on above: Order Comment: Speci men Type: BLOOD SPECIMENOrdering Facility: [facility] Address: [address] [place] [address] Result Comment: Refe rence ranges and high/low indicator flags are provided as general guidelines only. The treating physician must determine appropriate target levels/dosing based on the specific clinical situation. Performed By: #### 4 091-5 ####[facility]ORATORYCLIA [id number] [address] [place] XR MOD BARIUM SWALLOW W SPEE Lore 06-23-2021 XR MOD BARIUM SWALLOW W SPEECH Normal [facility] Basic metabolic 2000 panelon 06-22-2021 Anion gap [Moles/Vol] 6 mmol/L Low 9-18 [facility] Comment on above: Order Comment: Speci men Type: BLOOD SPECIMENOrdering Facility: [facility] Address: [address] [place] [address] Performed By: #### 2 4320-2, ####[facility]ORATORYCLIA [id number] [place] [address] [place] Calcium [Mass/Vol] 8.5 mg/dL Normal 8.5-10.2 [facility] Comment on above: Order Comment: Speci men Type: BLOOD SPECIMENOrdering Facility: [facility] Address: [address] [place] [address] Performed By: #### 2 2, ####[facility] LABORATORYCLIA [id number] [place] [address] [place] Chloride [Moles/Vol] 105 mmol/L Normal 97-105 [facility] Comment on above: Order Comment: Speci men Type: BLOOD SPECIMENOrdering Facility: [facility] Address: [address] [place] [address] Performed By: #### 2 2, ####[facility] LABORATORYCLIA [id number] [place] [address] [place] CO2 [Moles/Vol] 26 mmol/L Normal 22-30 [facility] Comment on above: Order Comment: Speci men Type: BLOOD SPECIMENOrdering Facility: [facility] Address: [address] [place] [address] Performed By: #### 2 4320-2, ####[facility] LABORATORYCLIA [id number] [place] [address] [place] Creatinine [Mass/Vol] 0.56 mg/dL Low 0.73-1.22 [facility] Comment on above: Order Comment: Speci men Type: BLOOD SPECIMENOrdering Facility: [facility] Address: [address] [place] [address] Performed By: #### 2 4320-2, 86318-0 ####[facility]ORATORYCLIA [id number] [place] [address] [place] GFR/1.73 sq M.predicted MDRD (S/P/Bld) [Vol rate/Area] mL/min/{1.73_m2} Normal [facility] Comment on above: Order Comment: Shira feldman Type: BLOOD SPECIMENOrdering Facility: [facility] Address: [address] [place], [place] [phone] Result Comment: >60e GFR (Estimated GFR) Units [...] Performed By: #### 2 4321-2, ####[facility]ORATORYCLIA [id number] [place] [id number] [place] Glucose [Mass/Vol] 120 mg/dL High 74-99 [facility] Comment on above: Order Comment: Shira feldman Type: BLOOD SPECIMENOrdering Facility: [facility] Address: [address] [place], [place] [phone] Result Comment: The [place] [employer] (ADA) provides guidance for cutoff [...] Standards of Medical Care in Diabetes 2016, [place] [employer]. Diabetes Care. 2016.39(Suppl 1). Performed By: #### 2 4321-2, ####[facility]ATORYCLIA [id number] [address] [place] Potassium [Moles/Vol] 4.0 mmol/L Normal 3.7-5.1 [facility] Comment on above: Order Comment: Speci men Type: BLOOD SPECIMENOrdering Facility: [facility] Address: [address] [place] [address] Performed By: #### 2 432-2, ####[facility]ORATORYCLIA [id number] [address] STATES OF [facility] Sodium [Moles/Vol] 137 mmol/L Normal 136-144 [facility] Comment on above: Order Comment: Speci men Type: BLOOD SPECIMENOrdering Facility: [facility] Address: [address] [place] [address] Performed By: #### 2 432-, ####[facility]ORATORYCLIA [id number] [address] [place] Urea nitrogen [Mass/Vol] 25 mg/dL High 9-24 [facility] Comment on above: Order Comment: Speci men Type: BLOOD SPECIMENOrdering Facility: [facility] Address: [address] [place] [address] Performed By: #### 2 4322, ####[facility]ORATORYCLIA [id number] [address] [place] CASE MANAGEMon 06-22-2021 CASE MANAGEM Normal [facility] CBC panel Auto (Bld)on 06-22 Erythrocyte distribution width (RBC) [Ratio] 16.0 % High 11.5-15.0 [facility] Comment on above: Order Comment: Speci men Type: BLOOD SPECIMENOrdering Facility: [facility] Address: [address] [place] [address] Performed By: #### 5 8410-2 ####[facility]ATORYCLIA [id number] [address] Hematocrit (Bld) [Volume fraction] 30.5 % Low 39.0-51.0 [facility] Comment on above: Order Comment: Speci men Type: BLOOD SPECIMENOrdering Facility: [facility] Address: [address] [place] [address] Performed By: #### 5 8410-2 ####[facility]ORATORYCLIA [id number] [address] Hemoglobin (Bld) [Mass/Vol] 9.3 g/dL Low 13.0-17.0 [facility] Comment on above: Order Comment: Speci men Type: BLOOD SPECIMENOrdering Facility: [facility] Address: [address] [place] [address] Performed By: #### 5 8410-2 ####[facility]ATORYCLIA [id number] [address] MCH (RBC) [Entitic mass] 28.4 pg Normal 26.0-34.0 [facility] Comment on above: Order Comment: Speci men Type: BLOOD SPECIMENOrdering Facility: [facility] Address: [address] [place] [address] Performed By: #### 5 8410-2 ####[facility]ORATORYCLIA [id number] [address] [place] MCHC (RBC) [Mass/Vol] 30.5 g/dL Normal 30.5-36.0 [facility] Comment on above: Order Comment: Speci men Type: BLOOD SPECIMENOrdering Facility: [facility] Address: [address] [place] [address] Performed By: #### 5 8410-2 ####[facility]ORATORYCLIA [id number] [address] MCV (RBC) [Entitic vol] 93.3 fL Normal 80.0-100.0 [facility] Comment on above: Order Comment: Speci men Type: BLOOD SPECIMENOrdering Facility: [facility] Address: [address] Performed By: #### 5 8410-2 ####[facility]ORATORYCLIA [id number] [address] Nucleated RBC (Bld) [#/Vol] 10*3/uL Normal <0.01 [facility] Comment on above: Order Comment: Speci men Type: BLOOD SPECIMENOrdering Facility: [facility] Address: [address] [place] [address] Performed By: #### 5 8410-2 ####[facility]ATORYCLIA [id number] [address] Platelet mean volume (Bld) [Entitic vol] 11.5 fL Normal 9.0-12.7 [facility] Comment on above: Order Comment: Speci men Type: BLOOD SPECIMENOrdering Facility: [facility] Address: [address] [place] [address] Performed By: #### 5 8410-2 ####[facility]ATORYCLIA [id number] [address] Platelets (Bld) [#/Vol] 346 10*3/uL Normal 150-400 [facility] Comment on above: Order Comment: Speci men Type: BLOOD SPECIMENOrdering Facility: [facility] Address: [address] [place], [place] [address] Performed By: #### 5 8410-2 ####[facility]ORATORYCLIA [id number] [address] RBC (Bld) [#/Vol] 3.27 10*6/uL Low 4.20-6.00 [facility] Comment on above: Order Comment: Speci men Type: BLOOD SPECIMENOrdering Facility: [facility] Address: [address] [place] [address] Performed By: #### 5 8410-2 ####[facility]ORATORYCLIA [id number] [place] [address] [place] WBC (Bld) [#/Vol] 9.44 10*3/uL Normal 3.70-11.00 [facility] Comment on above: Order Comment: Speci men Type: BLOOD SPECIMENOrdering Facility: [facility] Address: [address] [place] [address] Performed By: #### 5 8410-2 ####[facility]ORATORYCLIA [id number] [address] [place] HEMOGLOBIN (HGB)on Hemoglobin (Bld) [Mass/Vol] 9.7 g/dL Low 13.0-17.0 [facility] Comment on above: Order Comment: Speci men Type: BLOOD SPECIMENOrdering Facility: [facility] Address: [address] [place] [address] Performed By: #### H GB ####[facility]ORATORYCLIA [id number] [address] [place] Magnesium SerPl-mCncon 06-22 Magnesium [Mass/Vol] 2.4 mg/dL High 1.7-2.3 [facility] Comment on above: Order Comment: Speci men Type: BLOOD SPECIMENOrdering Facility: [facility] Address: [address] [place] [address] Performed By: #### 2 4321-2, 04345-6 ####[facility]ORATORYCLIA [id number] [address] [place] THERAPY NTon 06-22-2021 THERAPY NT Normal [facility] THERAPY NT Normal [facility] aPTT PPPon 06-22-2021 aPTT Coag (PPP) [Time] 62.3 s High 23.0-32.[address] [place] Comment on above: Order Comment: Speci men Type: BLOOD SPECIMENOrdering Facility: [facility] Address: [address] [place] [address] Performed By: #### 1 4979-9 ####[facility]ORATORYCLIA [id number] [place] [address] [place] ALLIED HEALTHon 06-21-2021 ALLIED HEALTH Normal [facility] Basic metabolic 2000 panelon 06-21-2021 Anion gap [Moles/Vol] 8 mmol/L Low 9-18 [facility] Comment on above: Order Comment: Speci men Type: BLOOD SPECIMENOrdering Facility: [facility] Address: [address] [place] [address] Performed By: #### 2 4321-2, ####[facility]ORATORYCLIA [id number] [place] [address] [place] Calcium [Mass/Vol] 8.2 mg/dL Low 8.5-10.2 [facility] Comment on above: Order Comment: Speci men Type: BLOOD SPECIMENOrdering Facility: [facility] Address: [address] [place] [address] Performed By: #### 2 2, ####[facility]ORATORYCLIA [id number] [place] [address] [place] Chloride [Moles/Vol] 108 mmol/L High 97-105 [facility] Comment on above: Order Comment: Speci men Type: BLOOD SPECIMENOrdering Facility: [facility] Address: [address] [place] [address] Performed By: #### 2 2, ####[facility] LABORATORYCLIA [id number] [place] [address] [place] CO2 [Moles/Vol] 24 mmol/L Normal 22-30 [facility] Comment on above: Order Comment: Speci men Type: BLOOD SPECIMENOrdering Facility: [facility] Address: [address] [place] [address] Performed By: #### 2 2, ####[facility] LABORATORYCLIA [id number] [place] [address] [place] Creatinine [Mass/Vol] 0.61 mg/dL Low 0.73-1.22 [facility] Comment on above: Order Comment: Johncara feldman Type: BLOOD SPECIMENOrdering Facility: [facility] Address: [address] [id number] Performed By: #### 2 4321-2, ####[facility] LABORATORYCLIA [id number] [place] [address] [place] GFR/1.73 sq M.predicted MDRD (S/P/Bld) [Vol rate/Area] mL/min/{1.73_m2} Normal [facility] Comment on above: Order Comment: Johncara feldman Type: BLOOD SPECIMENOrdering Facility: [facility] Address: [address] [phone] Result Comment: >60e GFR (Estimated GFR) Units [...] Performed By: #### 2 4321-2, ####[facility] LABORATORYCLIA [id number] [place] [address] [place] Glucose [Mass/Vol] 211 mg/dL High 74-99 [facility] Comment on above: Order Comment: Shira feldman Type: BLOOD SPECIMENOrdering Facility: [facility] Address: [address] [phone] Result Comment: The [place] [employer] (ADA) provides guidance for cutoff [...] Standards of Medical Care in Diabetes 2016, [place] [employer]. Diabetes Care. 2016.39(Suppl 1). Performed By: #### 2 4320-2, ####[facility] LABORATORYCLIA [id number] [place] [address] [place] Potassium [Moles/Vol] 4.3 mmol/L Normal 3.7-5.1 [facility] Comment on above: Order Comment: Shira feldman Type: BLOOD SPECIMENOrdering Facility: [facility] Address: [address] [place] [address] Performed By: #### 2 4320-06, ####[facility] LABORATORYCLIA [id number] [address] STATES OF [facility] Sodium [Moles/Vol] 140 mmol/L Normal 136-144 [facility] Comment on above: Order Comment: Shira feldman Type: BLOOD SPECIMENOrdering Facility: [facility] Address: [address] [address] Performed By: #### 2 4320-06, ####[facility]ORATORYCLIA [id number] [address] [place] Urea nitrogen [Mass/Vol] 26 mg/dL High 9-24 [facility] Comment on above: Order Comment: Shira feldman Type: BLOOD SPECIMENOrdering Facility: [facility] Address: [address] [address] Performed By: #### 2 4320-06, ####[facility] LABORATORYCLIA [id number] [address] [place] CBC panel Auto (Bld)on 06-21 Erythrocyte distribution width (RBC) [Ratio] 16.1 % High 11.5-15.0 [facility] Comment on above: Order Comment: Shira feldman Type: BLOOD SPECIMENOrdering Facility: [facility] Address: [address] [address] Performed By: #### 5 8410-2 ####[facility] LABORATORYCLIA [id number] [address] Hematocrit (Bld) [Volume fraction] 29.7 % Low 39.0-51.0 [facility] Comment on above: Order Comment: Speci men Type: BLOOD SPECIMENOrdering Facility: [facility] Address: [address] [place] [address] Performed By: #### 5 8410-2 ####[facility]ORATORYCLIA [id number] [address] Hemoglobin (Bld) [Mass/Vol] 9.2 g/dL Low 13.0-17.0 [facility] Comment on above: Order Comment: Speci men Type: BLOOD SPECIMENOrdering Facility: [facility] Address: [address] [place] [address] Performed By: #### 5 8410-2 ####[facility] LABORATORYCLIA [id number] [address] MCH (RBC) [Entitic mass] 28.8 pg Normal 26.0-34.0 [facility] Comment on above: Order Comment: Speci men Type: BLOOD SPECIMENOrdering Facility: [facility] Address: [address] [place] [address] Performed By: #### 5 8410-2 ####[facility]ORATORYCLIA [id number] [address] [place] MCHC (RBC) [Mass/Vol] 31.0 g/dL Normal 30.5-36.0 [facility] Comment on above: Order Comment: Speci men Type: BLOOD SPECIMENOrdering Facility: [facility] Address: [address] [place] [address] Performed By: #### 5 8410-2 ####[facility]ATORYCLIA [id number] [address] MCV (RBC) [Entitic vol] 93.1 fL Normal 80.0-100.0 [facility] Comment on above: Order Comment: Speci men Type: BLOOD SPECIMENOrdering Facility: [facility] Address: [facility] [address] Performed By: #### 5 8410-2 ####[facility]ORATORYCLIA [id number] [address] [place] Nucleated RBC (Bld) [#/Vol] 10*3/uL Normal <0.01 [facility] Comment on above: Order Comment: Speci men Type: BLOOD SPECIMENOrdering Facility: [facility] Address: [address] [place], [place] [address] Performed By: #### 5 8410-2 ####[facility]ORATORYCLIA [id number] [address] [place] Platelet mean volume (Bld) [Entitic vol] 11.6 fL Normal 9.0-12.7 [facility] Comment on above: Order Comment: Speci men Type: BLOOD SPECIMENOrdering Facility: [facility] Address: [address] [place] [address] Performed By: #### 5 8410-2 ####[facility] LABORATORYCLIA [id number] [address] [place] Platelets (Bld) [#/Vol] 347 10*3/uL Normal 150-400 [facility] Comment on above: Order Comment: Speci men Type: BLOOD SPECIMENOrdering Facility: [facility] Address: [address] Performed By: #### 5 8410-2 ####[facility]ATORYCLIA [id number] [place] [address] [place] RBC (Bld) [#/Vol] 3.19 10*6/uL Low 4.20-6.00 [facility] Comment on above: Order Comment: Speci men Type: BLOOD SPECIMENOrdering Facility: [facility] Address: [address] [place], [place] [address] Performed By: #### 5 8410-2 ####[facility]ATORYCLIA [id number] [place] [address] [place] WBC (Bld) [#/Vol] 10.29 10*3/uL Normal 3.70-11.00 [facility] Comment on above: Order Comment: Speci men Type: BLOOD SPECIMENOrdering Facility: [facility] Address: [address] [place] [address] Performed By: #### 5 8410-2 ####[facility]ORATORYCLIA [id number] [address] [place] CONSULT PROGon 06-21-2021 CONSULT PROG Normal [facility] CONSULT PROG Normal [facility] Magnesium SerPl-mCncon 06-21 Magnesium [Mass/Vol] 2.5 mg/dL High 1.7-2.3 [facility] Comment on above: Order Comment: Speci men Type: BLOOD SPECIMENOrdering Facility: [facility] Address: [address] [place] [address] Performed By: #### 2 4321-2, 00446-1 ####[facility]ORATORYCLIA [id number] [place] [address] [place] NUTRITIONon 06-21-2021 NUTRITION Normal [facility] XR CHEST 1V FRONTALon 2021 XR CHEST 1V FRONTAL Normal [facility] aPTT PPPon 06-21-2021 aPTT Coag (PPP) [Time] 68.5 s High 23.0-32.[address] [place] Comment on above: Order Comment: Speci men Type: BLOOD SPECIMENOrdering Facility: [facility] Address: [address] [place] [address] Performed By: #### 1 4979-9 ####[facility]ORATORYCLIA [id number] [address] [place] aPTT Coag (PPP) [Time] 57.8 s High 23.0-32.[address] [place] Comment on above: Order Comment: Speci men Type: BLOOD SPECIMENOrdering Facility: [facility] Address: [address] [place] [address] Performed By: #### 1 4979-9 ####[facility]ORATORYCLIA [id number] [place] [address] [place] Basic metabolic 2000 panelon 06-20-2021 Anion gap [Moles/Vol] 9 mmol/L Normal 9-18 [facility] Comment on above: Order Comment: Speci men Type: BLOOD SPECIMENOrdering Facility: [facility] Address: [address] [place] [address] Performed By: #### 2 4321-2, ####[facility]ATORYCLIA [id number] [place] [address] [place] Calcium [Mass/Vol] 8.3 mg/dL Low 8.5-10.2 [facility] Comment on above: Order Comment: Speci men Type: BLOOD SPECIMENOrdering Facility: [facility] Address: [address] [place] [address] Performed By: #### 2 432-2, ####[facility]ORATORYCLIA [id number] [place] [address] [place] Chloride [Moles/Vol] 111 mmol/L High 97-105 [facility] Comment on above: Order Comment: Speci men Type: BLOOD SPECIMENOrdering Facility: [facility] Address: [address] [place] [address] Performed By: #### 2 4321-2, ####[facility]ATORYCLIA [id number] [place] [address] [place] CO2 [Moles/Vol] 24 mmol/L Normal 22-30 [facility] Comment on above: Order Comment: Speci men Type: BLOOD SPECIMENOrdering Facility: [facility] Address: [address] [place] [address] Performed By: #### 2 4321-2, ####[facility]ATORYCLIA [id number] [place] [address] [place] Creatinine [Mass/Vol] 0.64 mg/dL Low 0.73-1.22 [facility] Comment on above: Order Comment: Shira feldman Type: BLOOD SPECIMENOrdering Facility: [facility] Address: [address] [phone] Performed By: #### 2 4321-2, ####[facility] LABORATORYCLIA [id number] [address] [id number] [place] GFR/1.73 sq M.predicted MDRD (S/P/Bld) [Vol rate/Area] mL/min/{1.73_m2} Normal [facility] Comment on above: Order Comment: John francia Type: BLOOD SPECIMENOrdering Facility: [facility] Address: [address] [place] [address] Result Comment: >60e GFR (Estimated GFR) Units [...] Performed By: #### 2 4321-2, ####[facility]ORATORYCLIA [id number] [address] [id number] [place] Glucose [Mass/Vol] 114 mg/dL High 74-99 [facility] Comment on above: Order Comment: Shira feldman Type: BLOOD SPECIMENOrdering Facility: [facility] Address: [address] [phone] Result Comment: The [place] [employer] (ADA) provides guidance for cutoff [...] Standards of Medical Care in Diabetes 2016, [place] [employer]. Diabetes Care. 2016.39(Suppl 1). Performed By: #### 2 4320-06, ####[facility]ORATORYCLIA [id number] [place] [address] [place] [facility] Potassium [Moles/Vol] 4.1 mmol/L Normal 3.7-5.1 [facility] Comment on above: Order Comment: Shira feldman Type: BLOOD SPECIMENOrdering Facility: [facility] Address: [address] [place] [address] Performed By: #### 2 4320-06, ####[facility]ITALCLIA [id number] [address] Sodium [Moles/Vol] 144 mmol/L Normal 136-144 [facility] Comment on above: Order Comment: Shira feldman Type: BLOOD SPECIMENOrdering Facility: [facility] Address: [address] [place] [address] Performed By: #### 2 4320-06, ####[facility]ORATORYCLIA [id number] [address] [place] Urea nitrogen [Mass/Vol] 27 mg/dL High 9-24 [facility] Comment on above: Order Comment: Shira feldman Type: BLOOD SPECIMENOrdering Facility: [facility] Address: [address] [place] [address] Performed By: #### 2 4320-06, ####[facility]ORATORYCLIA [id number] [address] [place] CASE MANAGEMon 06-20-2021 CASE MANAGEM Normal [facility] CBC panel Auto (Bld)on 06-20 Erythrocyte distribution width (RBC) [Ratio] 15.9 % High 11.5-15.0 [facility] Comment on above: Order Comment: Speci men Type: BLOOD SPECIMENOrdering Facility: [facility] Address: [address] [place] [address] Performed By: #### 5 8410-2 ####[facility]ORATORYCLIA [id number] [address] Hematocrit (Bld) [Volume fraction] 31.0 % Low 39.0-51.0 [facility] Comment on above: Order Comment: Speci men Type: BLOOD SPECIMENOrdering Facility: [facility] Address: [address] [place] [address] Performed By: #### 5 8410-2 ####[facility]ORATORYCLIA [id number] [address] [place] Hemoglobin (Bld) [Mass/Vol] 9.2 g/dL Low 13.0-17.0 [facility] Comment on above: Order Comment: Speci men Type: BLOOD SPECIMENOrdering Facility: [facility] Address: [address] [place] [address] Performed By: #### 5 8410-2 ####[facility]ORATORYCLIA [id number] [address] [place] MCH (RBC) [Entitic mass] 27.4 pg Normal 26.0-34.0 [facility] Comment on above: Order Comment: Speci men Type: BLOOD SPECIMENOrdering Facility: [facility] Address: [address] [place] [address] Performed By: #### 5 8410-2 ####[facility]ORATORYCLIA [id number] [address] [place] MCHC (RBC) [Mass/Vol] 29.7 g/dL Low 30.5-36.0 [facility] Comment on above: Order Comment: Speci men Type: BLOOD SPECIMENOrdering Facility: [facility] Address: [address] [place] [address] Performed By: #### 5 8410-2 ####[facility] LABORATORYCLIA [id number] [address] MCV (RBC) [Entitic vol] 92.3 fL Normal 80.0-100.0 [facility] Comment on above: Order Comment: Speci men Type: BLOOD SPECIMENOrdering Facility: [facility] Address: [address] [place] [address] Performed By: #### 5 8410-2 ####[facility]ORATORYCLIA [id number] [address] Nucleated RBC (Bld) [#/Vol] 10*3/uL Normal <0.01 [facility] Comment on above: Order Comment: Speci men Type: BLOOD SPECIMENOrdering Facility: [facility] Address: [address] [place] [address] Performed By: #### 5 8410-2 ####[facility]ORATORYCLIA [id number] [address] Platelet mean volume (Bld) [Entitic vol] 11.5 fL Normal 9.0-12.7 [facility] Comment on above: Order Comment: Speci men Type: BLOOD SPECIMENOrdering Facility: [facility] Address: [address] [place] [address] Performed By: #### 5 8410-2 ####[facility]ATORYCLIA [id number] [address] Platelets (Bld) [#/Vol] 343 10*3/uL Normal 150-400 [facility] Comment on above: Order Comment: Speci men Type: BLOOD SPECIMENOrdering Facility: [facility] Address: [address] [place] [address] Performed By: #### 5 8410-2 ####[facility]ATORYCLIA [id number] [address] RBC (Bld) [#/Vol] 3.36 10*6/uL Low 4.20-6.00 [facility] Comment on above: Order Comment: Speci men Type: BLOOD SPECIMENOrdering Facility: [facility] Address: [address] [place] [address] Performed By: #### 5 8410-2 ####[facility]ATORYCLIA [id number] [address] [place] WBC (Bld) [#/Vol] 10.71 10*3/uL Normal 3.70-11.00 [facility] Comment on above: Order Comment: Speci men Type: BLOOD SPECIMENOrdering Facility: [facility] Address: [address] [place] [address] Performed By: #### 5 8410-2 ####[facility]ORATORYCLIA [id number] [address] CONSULT PROGon 06-20-2021 CONSULT PROG Normal [facility] HEMOGLOBIN (HGB)on 2 Hemoglobin (Bld) [Mass/Vol] 9.7 g/dL Low 13.0-17.0 [facility] Comment on above: Order Comment: Speci men Type: BLOOD SPECIMENOrdering Facility: [facility] Address: [address] [place] [address] Performed By: #### H GB ####[facility] LABORATORYCLIA [id number] [address] [place] Magnesium SerPl-mCncon 06-20 Magnesium [Mass/Vol] 2.5 mg/dL High 1.7-2.3 [facility] Comment on above: Order Comment: Speci men Type: BLOOD SPECIMENOrdering Facility: [facility] Address: [address] [place] [address] Performed By: #### 2 4321-2, 01210-4 ####[facility]ORATORYCLIA [id number] [address] [place] NURSING PROGon 06-20-2021 NURSING PROG Normal [facility] THERAPY NTon 06-20-2021 THERAPY NT Normal [facility] aPTT PPPon 06-20-2021 aPTT Coag (PPP) [Time] 93.5 s High 23.0-32.[address] [place] Comment on above: Order Comment: Speci men Type: BLOOD SPECIMENOrdering Facility: [facility] Address: [address] [place] [address] Performed By: #### 1 4979-9 ####[facility]ORATORYCLIA [id number] [address] [place] aPTT Coag (PPP) [Time] 47.1 s High 23.0-32.[address] [place] Comment on above: Order Comment: Speci men Type: BLOOD SPECIMENOrdering Facility: [facility] Address: [address] [place] [address] Performed By: #### 1 4979-9 ####[facility]ORATORYCLIA [id number] [place] [address] [place] Basic metabolic 2000 panelon 06-19-2021 Anion gap [Moles/Vol] 7 mmol/L Low 9-18 [facility] Comment on above: Order Comment: Speci men Type: BLOOD SPECIMENOrdering Facility: [facility] Address: [address] [place] [address] Performed By: #### 2 4321-2 ####[facility]ORATORYCLIA [id number] [place] [address] [place] Calcium [Mass/Vol] 8.1 mg/dL Low 8.5-10.2 [facility] Comment on above: Order Comment: Speci men Type: BLOOD SPECIMENOrdering Facility: [facility] Address: [address] [place] [address] Performed By: #### 2 4321-2 ####[facility] LABORATORYCLIA [id number] [address] STATES OF [facility] Chloride [Moles/Vol] 111 mmol/L High 97-105 [facility] Comment on above: Order Comment: Speci men Type: BLOOD SPECIMENOrdering Facility: [facility] Address: [address] [address] Performed By: #### 2 4321-2 ####[facility] LABORATORYCLIA [id number] [address] STATES OF [facility] CO2 [Moles/Vol] 24 mmol/L Normal 22-30 [facility] Comment on above: Order Comment: Speci men Type: BLOOD SPECIMENOrdering Facility: [facility] Address: [address] [place] [address] Performed By: #### 2 4321-2 ####[facility] LABORATORYCLIA [id number] [address] [place] Creatinine [Mass/Vol] 0.71 mg/dL Low 0.73-1.22 [facility] Comment on above: Order Comment: Speci men Type: BLOOD SPECIMENOrdering Facility: [facility] Address: [address] [place] [address] Performed By: #### 2 4321-2 ####[facility]ITALCLIA [id number] [address] [place] GFR/1.73 sq M.predicted MDRD (S/P/Bld) [Vol rate/Area] mL/min/{1.73_m2} Normal [facility] Comment on above: Order Comment: Speci men Type: BLOOD SPECIMENOrdering Facility: [facility] Address: [address] [place] [address] Result Comment: >60e GFR (Estimated GFR) Units [...] Performed By: #### 2 4321-2 ####[facility] LABORATORYCLIA [id number] [place] [address] [place] Glucose [Mass/Vol] 110 mg/dL High 74-99 [facility] Comment on above: Order Comment: Shira feldman Type: BLOOD SPECIMENOrdering Facility: [facility] Address: [address] [place] [address] Result Comment: The [place] [employer] (ADA) provides guidance for cutoff [...] Standards of Medical Care in Diabetes 2016, [place] [employer]. Diabetes Care. 2016.39(Suppl 1). Performed By: #### 2 4321-2 ####[facility] LABORATORYCLIA [id number] [place] [address] [place] Potassium [Moles/Vol] 3.7 mmol/L Normal 3.7-5.1 [facility] Comment on above: Order Comment: Shira feldman Type: BLOOD SPECIMENOrdering Facility: [facility] Address: [address] [place] [address] Performed By: #### 2 4321-2 ####[facility] LABORATORYCLIA [id number] [place] [address] [place] Sodium [Moles/Vol] 142 mmol/L Normal 136-144 [facility] Comment on above: Order Comment: Shira feldman Type: BLOOD SPECIMENOrdering Facility: [facility] Address: [address] [place] [address] Performed By: #### 2 4321-2 ####[facility] LABORATORYCLIA [id number] [place] [address] [place] Urea nitrogen [Mass/Vol] 26 mg/dL High 9-24 [facility] Comment on above: Order Comment: Speci men Type: BLOOD SPECIMENOrdering Facility: [facility] Address: [address] [place] [address] Performed By: #### 2 4321-2 ####[facility] LABORATORYCLIA [id number] [address] STATES [facility] CBC panel Auto (Bld)on 06-19 Erythrocyte distribution width (RBC) [Ratio] 15.7 % High 11.5-15.0 [facility] Comment on above: Order Comment: Speci men Type: BLOOD SPECIMENOrdering Facility: [facility] Address: [address] [place] [address] Performed By: #### 5 8410-2 ####[facility] LABORATORYCLIA [id number] [address] Hematocrit (Bld) [Volume fraction] 30.9 % Low 39.0-51.0 [facility] Comment on above: Order Comment: Speci men Type: BLOOD SPECIMENOrdering Facility: [facility] Address: [address] [place] [address] Performed By: #### 5 8410-2 ####[facility] LABORATORYCLIA [id number] [address] Hemoglobin (Bld) [Mass/Vol] 9.5 g/dL Low 13.0-17.0 [facility] Comment on above: Order Comment: Speci men Type: BLOOD SPECIMENOrdering Facility: [facility] Address: [address] [place] [address] Performed By: #### 5 8410-2 ####[facility] LABORATORYCLIA [id number] [address] MCH (RBC) [Entitic mass] 28.4 pg Normal 26.0-34.0 [facility] Comment on above: Order Comment: Speci men Type: BLOOD SPECIMENOrdering Facility: [facility] Address: [address] [place] [address] Performed By: #### 5 8410-2 ####[facility] LABORATORYCLIA [id number] [address] [place] [facility] MCHC (RBC) [Mass/Vol] 30.7 g/dL Normal 30.5-36.0 [facility] Comment on above: Order Comment: Speci men Type: BLOOD SPECIMENOrdering Facility: [facility] Address: [address] [place] [address] Performed By: #### 5 8410-2 ####[facility] LABORATORYCLIA [id number] [address] [place] [facility] MCV (RBC) [Entitic vol] 92.2 fL Normal 80.0-100.0 [facility] Comment on above: Order Comment: Speci men Type: BLOOD SPECIMENOrdering Facility: [facility] Address: [address] [place] [address] Performed By: #### 5 8410-2 ####[facility] LABORATORYCLIA [id number] [address] Nucleated RBC (Bld) [#/Vol] 10*3/uL Normal <0.01 [facility] Comment on above: Order Comment: Speci men Type: BLOOD SPECIMENOrdering Facility: [facility] Address: [address] [place] [address] Performed By: #### 5 8410-2 ####[facility] LABORATORYCLIA [id number] [address] [place] Platelet mean volume (Bld) [Entitic vol] 11.7 fL Normal 9.0-12.7 [facility] Comment on above: Order Comment: Speci men Type: BLOOD SPECIMENOrdering Facility: [facility] Address: [address] [place] [address] Performed By: #### 5 8410-2 ####[facility] LABORATORYCLIA [id number] [address] [place] Platelets (Bld) [#/Vol] 323 10*3/uL Normal 150-400 [facility] Comment on above: Order Comment: Speci men Type: BLOOD SPECIMENOrdering Facility: [facility] Address: [address] [place] [address] Performed By: #### 5 8410-2 ####[facility] LABORATORYCLIA [id number] [address] STATES OF [facility] RBC (Bld) [#/Vol] 3.35 10*6/uL Low 4.20-6.00 [facility] Comment on above: Order Comment: Speci men Type: BLOOD SPECIMENOrdering Facility: [facility] Address: [address] [place] [address] Performed By: #### 5 8410-2 ####[facility] LABORATORYCLIA [id number] [address] OF [facility] WBC (Bld) [#/Vol] 9.53 10*3/uL Normal 3.70-11.00 [facility] Comment on above: Order Comment: Speci men Type: BLOOD SPECIMENOrdering Facility: [facility] Address: [address] [place] [address] Performed By: #### 5 8410-2 ####[facility] LABORATORYCLIA [id number] [address] [place] HEMOGLOBIN (HGB)on Hemoglobin (Bld) [Mass/Vol] 9.7 g/dL Low 13.0-17.0 [facility] Comment on above: Order Comment: Speci men Type: BLOOD SPECIMENOrdering Facility: [facility] Address: [address] [place] [address] Performed By: #### H GB ####[facility] LABORATORYCLIA [id number] [address] [place] Magnesium SerPl-mCncon 06-19 Magnesium [Mass/Vol] 2.5 mg/dL High 1.7-2.3 [facility] Comment on above: Order Comment: Speci men Type: BLOOD SPECIMENOrdering Facility: [facility] Address: [address] [place] [address] Performed By: #### 1 9123-9, 2777-1 ####[facility]ORATORYCLIA [id number] [address] NURSING PROGon 06-19-2021 NURSING PROG Normal [facility] Phosphate SerPl-mCncon 06-19 Phosphate [Mass/Vol] 2.6 mg/dL Low 2.7-4.8 [facility] Comment on above: Order Comment: Speci men Type: BLOOD SPECIMENOrdering Facility: [facility] Address: [address] [place] [address] Performed By: #### 1 9123-9, 2777-1 ####[facility]ORATORYCLIA [id number] [address] aPTT PPPon 06-19-2021 aPTT Coag (PPP) [Time] 61.9 s High 23.0-32.[address] [place] Comment on above: Order Comment: Speci men Type: BLOOD SPECIMENOrdering Facility: [facility] Address: [address] [place] [address] Performed By: #### 1 4979-9 ####[facility] LABORATORYCLIA [id number] [address] aPTT Coag (PPP) [Time] 68.6 s High 23.0-32.[address] [place] Comment on above: Order Comment: Speci men Type: BLOOD SPECIMENOrdering Facility: [facility] Address: [address] [place] [address] Performed By: #### 1 4979-9 ####[facility]ORATORYCLIA [id number] [address] aPTT Coag (PPP) [Time] 83.2 s High 23.0-32.[address] [place] Comment on above: Order Comment: Speci men Type: BLOOD SPECIMENOrdering Facility: [facility] Address: [address] [place] [address] Performed By: #### 1 4979-9 ####[facility] LABORATORYCLIA [id number] [place] [address] [place] Basic metabolic 2000 panelon 06-18-2021 Anion gap [Moles/Vol] 7 mmol/L Low 9-18 [facility] Comment on above: Order Comment: Speci men Type: BLOOD SPECIMENOrdering Facility: [facility] Address: [address] [place] [address] Performed By: #### 2 4321-2, , 2776- ####[facility] LABORATORYCLIA [id number] [place] [address] [place] Calcium [Mass/Vol] 8.2 mg/dL Low 8.5-10.2 [facility] Comment on above: Order Comment: Speci men Type: BLOOD SPECIMENOrdering Facility: [facility] Address: [address] [place] [address] Performed By: #### 2 4321-2, , 2776-05 ####[facility] LABORATORYCLIA [id number] [place] [address] [place] Chloride [Moles/Vol] 115 mmol/L High 97-105 [facility] Comment on above: Order Comment: Speci men Type: BLOOD SPECIMENOrdering Facility: [facility] Address: [address] [place] [address] Performed By: #### 2 4321-2, , 2776-05 ####[facility] LABORATORYCLIA [id number] [place] [id number] [place] CO2 [Moles/Vol] 23 mmol/L Normal 22-30 [facility] Comment on above: Order Comment: Speci men Type: BLOOD SPECIMENOrdering Facility: [facility] Address: [address] [place] [address] Performed By: #### 2 4321-2, , 2776- ####[facility] LABORATORYCLIA [id number] [place] [address] [place] Creatinine [Mass/Vol] 0.70 mg/dL Low 0.73-1.22 [facility] Comment on above: Order Comment: Shira feldman Type: BLOOD SPECIMENOrdering Facility: [facility] Address: [address] [id number] Performed By: #### 2 4321-2, 59815-8, 2776-05 ####[facility]ORATORYCLIA [id number] [address] [place] GFR/1.73 sq M.predicted MDRD (S/P/Bld) [Vol rate/Area] mL/min/{1.73_m2} Normal [facility] Comment on above: Order Comment: [facility] Type: BLOOD SPECIMENOrdering Facility: [facility] Address: [address] [place], [place] [address] Result Comment: >60e GFR (Estimated GFR) Units [...] #### 2 4321-2, , 2776-05 ####[facility] LABORATORYCLIA [id number] [place] [address] [place] Glucose [Mass/Vol] 105 mg/dL High 74-99 [facility] Comment on above: Order Comment: Shira feldman Type: BLOOD SPECIMENOrdering Facility: [facility] Address: [address] [place], [place] [phone] Result Comment: The [place] [employer] (ADA) provides guidance for cutoff [...] Standards of Medical Care in Diabetes 2016, [place] [employer]. Diabetes Care. 2016.39(Suppl 1). Performed By: #### 2 4321-2, , 2776-05 ####[facility] LABORATORYCLIA [id number] [place] [address] [place] Potassium [Moles/Vol] 4.1 mmol/L Normal 3.7-5.1 [facility] Comment on above: Order Comment: Shira feldman Type: BLOOD SPECIMENOrdering Facility: [facility] Address: [address] [place] [address] Performed By: #### 2 4321-2, , 2776-05 ####[facility] HOSPITALCLIA [id number] [place] [address] [place] Sodium [Moles/Vol] 145 mmol/L High 136-144 [facility] Comment on above: Order Comment: Shira feldman Type: BLOOD SPECIMENOrdering Facility: [facility] Address: [address] [place] [address] Performed By: #### 2 4321-2, , 2776-05 ####[facility] HOSPITALCLIA [id number] [place] [address] [place] Urea nitrogen [Mass/Vol] 27 mg/dL High 9-24 [facility] Comment on above: Order Comment: Shira feldman Type: BLOOD SPECIMENOrdering Facility: [facility] Address: [address] [place] [address] Performed By: #### 2 4321-2, , 2776-05 ####[facility]ORATORYCLIA [id number] [place] [address] [place] CALCIUM IONIZED Bon 06-18-19 22 Calcium.ionized (BldV) [Mass/Vol] 1.22 mmol/L Normal 1.08-1.30 [facility] Comment on above: Order Comment: Speci men Type: BLOOD SPECIMENOrdering Facility: [facility] Address: [address] [place] [address] Performed By: #### I CA ####[facility] LABORATORYCLIA [id number] [address] Calcium.ionized adjusted to pH 7.4 (Bld) [Moles/Vol] 1.23 mmol/L Normal 1.08-1.30 [facility] Comment on above: Order Comment: Speci men Type: BLOOD SPECIMENOrdering Facility: [facility] Address: [address] [place] [address] Performed By: #### I CA ####[facility] LABORATORYCLIA [id number] [address] STATES OF [facility] CBC panel Auto (Bld)on 06-18 Erythrocyte distribution width (RBC) [Ratio] 15.8 % High 11.5-15.0 [facility] Comment on above: Order Comment: Speci men Type: BLOOD SPECIMENOrdering Facility: [facility] Address: [address] [place] [address] Performed By: #### 5 8410-2 ####[facility]ORATORYCLIA [id number] [address] STATES OF [facility] Hematocrit (Bld) [Volume fraction] 29.5 % Low 39.0-51.0 [facility] Comment on above: Order Comment: Speci men Type: BLOOD SPECIMENOrdering Facility: [facility] Address: [address] [place] [address] Performed By: #### 5 8410-2 ####[facility]ORATORYCLIA [id number] [address] Hemoglobin (Bld) [Mass/Vol] 8.8 g/dL Low 13.0-17.0 [facility] Comment on above: Order Comment: Speci men Type: BLOOD SPECIMENOrdering Facility: [facility] Address: [address] [place] [address] Performed By: #### 5 8410-2 ####[facility]ORATORYCLIA [id number] [address] MCH (RBC) [Entitic mass] 27.4 pg Normal 26.0-34.0 [facility] Comment on above: Order Comment: Speci men Type: BLOOD SPECIMENOrdering Facility: [facility] Address: [address] [place] [address] Performed By: #### 5 8410-2 ####[facility]ORATORYCLIA [id number] [address] MCHC (RBC) [Mass/Vol] 29.8 g/dL Low 30.5-36.0 [facility] Comment on above: Order Comment: Speci men Type: BLOOD SPECIMENOrdering Facility: [facility] Address: [address] [place] [address] Performed By: #### 5 8410-2 ####[facility]ORATORYCLIA [id number] [address] STATES [facility] MCV (RBC) [Entitic vol] 91.9 fL Normal 80.0-100.0 [facility] Comment on above: Order Comment: Speci men Type: BLOOD SPECIMENOrdering Facility: [facility] Address: [address] [place] [address] Performed By: #### 5 8410-2 ####[facility]ORATORYCLIA [id number] [address] Nucleated RBC (Bld) [#/Vol] 10*3/uL Normal <0.01 [facility] Comment on above: Order Comment: Speci men Type: BLOOD SPECIMENOrdering Facility: [facility] Address: [address] [place] [address] Performed By: #### 5 8410-2 ####[facility]ORATORYCLIA [id number] [address] Platelet mean volume (Bld) [Entitic vol] 11.9 fL Normal 9.0-12.7 [facility] Comment on above: Order Comment: Speci men Type: BLOOD SPECIMENOrdering Facility: [facility] Address: [address] [place] [address] Performed By: #### 5 8410-2 ####[facility]ORATORYCLIA [id number] [address] [place] Platelets (Bld) [#/Vol] 291 10*3/uL Normal 150-400 [facility] Comment on above: Order Comment: Speci men Type: BLOOD SPECIMENOrdering Facility: [facility] Address: [address] [place] [address] Performed By: #### 5 8410-2 ####[facility]ORATORYCLIA [id number] [place] [address] [place] RBC (Bld) [#/Vol] 3.21 10*6/uL Low 4.20-6.00 [facility] Comment on above: Order Comment: Speci men Type: BLOOD SPECIMENOrdering Facility: [facility] Address: [address] [place] [address] Performed By: #### 5 8410-2 ####[facility]ORATORYCLIA [id number] [address] STATES OF [facility] WBC (Bld) [#/Vol] 10.19 10*3/uL Normal 3.70-11.00 [facility] Comment on above: Order Comment: Speci men Type: BLOOD SPECIMENOrdering Facility: [facility] Address: [address] [place] [address] Performed By: #### 5 8410-2 ####[facility] LABORATORYCLIA [id number] [address] [place] FERRITIN BLDon 06-18-2021 Ferritin [Mass/Vol] 600.9 ng/mL High 30.3-565.7 [facility] Comment on above: Order Comment: Speci men Type: BLOOD SPECIMENOrdering Facility: [facility] Address: [address] [place] [address] Performed By: #### S ERFOL, IRON, FERR ####[facility]ORATORYCLIA [id number] [address] FOLATE SERUMon 06-18-2021 Folate [Mass/Vol] 14.3 ng/mL Normal >4.7 [facility] Comment on above: Order Comment: Speci men Type: BLOOD SPECIMENOrdering Facility: [facility] Address: [address] [place] [address] Performed By: #### S ERFOL, IRON, FERR ####[facility]ORATORYCLIA [id number] [address] Gas and Carbon monoxide pane l (BldV)on 06-18-2021 Base excess Calc (BldV) [Moles/Vol] 0.5 mmol/L Normal 0-2 [facility] Comment on above: Order Comment: Speci men Type: VENOUS BLOOD SPECIMENOrdering Facility: [facility] Address: [address] [place] [address] Performed By: #### 2 4344-4 ####[facility]ORATORYCLIA [id number] [address] STATES OF [facility] Body temperature 97.34 [degF] Normal [facility] Comment on above: Order Comment: Speci men Type: VENOUS BLOOD SPECIMENOrdering Facility: [facility] Address: [address] [place] [address] Performed By: #### 2 4344-4 ####[facility]ORATORYCLIA [id number] [address] [place] CALCIUM IONIZED, PH CORRECTED 1.26 mmol/L Normal 1.08-1.30 [facility] Comment on above: Order Comment: Speci men Type: VENOUS BLOOD SPECIMENOrdering Facility: [facility] Address: [address] [place] [address] Performed By: #### 2 4344-4 ####[facility]ORATORYCLIA [id number] [address] [place] Calcium.ionized (BldV) [Mass/Vol] 1.25 mmol/L Normal 1.08-1.30 [facility] Comment on above: Order Comment: Speci men Type: VENOUS BLOOD SPECIMENOrdering Facility: [facility] Address: [address] [place] [address] Performed By: #### 2 4344-4 ####[facility]ORATORYCLIA [id number] [address] [place] Carboxyhemoglobin (BldV) [Mass fraction] 1.5 % Normal 0.0-2.0 [facility] Comment on above: Order Comment: Speci men Type: VENOUS BLOOD SPECIMENOrdering Facility: [facility] Address: [address] [place] [address] Result Comment: Carb oxyhemoglobin Reference Range for Smokers: 2.0-8.0% Performed By: #### 2 4344-4 ####[facility]ORATORYCLIA [id number] [address] CO2 (BldV) [Partial pressure] 38 mm[Hg] Low 42-55 [facility] Comment on above: Order Comment: Speci men Type: VENOUS BLOOD SPECIMENOrdering Facility: [facility] Address: [address] [place] [address] Performed By: #### 2 4344-4 ####[facility]ATORYCLIA [id number] [address] [place] CO2 [Moles/Vol] 22.9 mmol/L Low 25-29 [facility] Comment on above: Order Comment: Speci men Type: VENOUS BLOOD SPECIMENOrdering Facility: [facility] Address: [address] [place] [address] Performed By: #### 2 4344-4 ####[facility]ORATORYCLIA [id number] [address] [place] CO2 adjusted to patient's actual temperature (BldV) [Partial pressure] 37 mmHg Low 42-55 [facility] Comment on above: Order Comment: Speci men Type: VENOUS BLOOD SPECIMENOrdering Facility: [facility] Address: [address] [place] [address] Performed By: #### 2 4344-4 ####[facility]ORATORYCLIA [id number] [address] [place] Glucose [Mass/Vol] 103 mg/dL Normal 60-105 [facility] Comment on above: Order Comment: Speci men Type: VENOUS BLOOD SPECIMENOrdering Facility: [facility] Address: [address] [place] [address] Performed By: #### 2 4344-4 ####[facility]ORATORYCLIA [id number] [place] [address] [place] HCO3 (Bld) [Moles/Vol] 24.4 mmol/L Normal 24-28 [facility] Comment on above: Order Comment: Speci men Type: VENOUS BLOOD SPECIMENOrdering Facility: [facility] Address: [address] [place] [address] Performed By: #### 2 4344-4 ####[facility]ORATORYCLIA [id number] [address] [place] Hematocrit (Bld) [Volume fraction] 28.7 % Low 39.0-51.0 [facility] Comment on above: Order Comment: Speci men Type: VENOUS BLOOD SPECIMENOrdering Facility: [facility] Address: [address] [address] Performed By: #### 2 4344-4 ####[facility] LABORATORYCLIA [id number] [address] [place] Hemoglobin (Bld) [Mass/Vol] 9.3 g/dL Low 13.0-17.0 [facility] Comment on above: Order Comment: Speci men Type: VENOUS BLOOD SPECIMENOrdering Facility: [facility] Address: [address] [place] [address] Performed By: #### 2 4344-4 ####[facility] LABORATORYCLIA [id number] [address] Methemoglobin (Bld) [Mass fraction] % Normal 0.0-1.5 [facility] Comment on above: Order Comment: Speci men Type: VENOUS BLOOD SPECIMENOrdering Facility: [facility] Address: [address] [address] Performed By: #### 2 4344-4 ####[facility]ORATORYCLIA [id number] [address] O2 THERAPY Ventilator Normal [facility] Comment on above: Order Comment: Speci men Type: VENOUS BLOOD SPECIMENOrdering Facility: [facility] Address: [facility] [place] [address] Performed By: #### 2 4344-4 ####[facility]ORATORYCLIA [id number] [address] Oxygen (BldV) [Partial pressure] 37 mm[Hg] Normal 35-45 [facility] Comment on above: Order Comment: Speci men Type: VENOUS BLOOD SPECIMENOrdering Facility: [facility] Address: [facility] [place] [address] Performed By: #### 2 4344-4 ####[facility]ORATORYCLIA [id number] [address] Oxygen adjusted to patient's actual temperature (BldV) [Partial pressure] 35.1 mmHg Normal 35-45 [facility] Comment on above: Order Comment: Speci men Type: VENOUS BLOOD SPECIMENOrdering Facility: [facility] Address: [address] [address] Performed By: #### 2 4344-4 ####[facility]ORATORYCLIA [id number] [address] Oxygen saturation in Blood 67.1 % Normal 60-85 [facility] Comment on above: Order Comment: Speci men Type: VENOUS BLOOD SPECIMENOrdering Facility: [facility] Address: [address] [address] Performed By: #### 2 4344-4 ####[facility]ORATORYCLIA [id number] [address] Oxyhemoglobin (BldV) [Mass fraction] 66 % Normal 60-85 [facility] Comment on above: Order Comment: Speci men Type: VENOUS BLOOD SPECIMENOrdering Facility: [facility] Address: [address] [place] [address] Performed By: #### 2 4344-4 ####[facility]ATORYCLIA [id number] [address] [place] pH (BldV) 7.42 [pH] Normal 7.32-7.42 [facility] Comment on above: Order Comment: Speci men Type: VENOUS BLOOD SPECIMENOrdering Facility: [facility] Address: [address] [place] [address] Performed By: #### 2 4344-4 ####[facility]ATORYCLIA [id number] [address] pH adjusted to patient's actual temperature (BldV) 7.43 High 7.32-7.42 [facility] Comment on above: Order Comment: Speci men Type: VENOUS BLOOD SPECIMENOrdering Facility: [facility] Address: [address] [place] [address] Performed By: #### 2 4344-4 ####[facility]ATORYCLIA [id number] [address] [place] Potassium [Moles/Vol] 4.0 mmol/L Normal 3.5-5.0 [facility] Comment on above: Order Comment: Speci men Type: VENOUS BLOOD SPECIMENOrdering Facility: [facility] Address: [address] [place] [address] Performed By: #### 2 4344-4 ####[facility]ATORYCLIA [id number] [address] [place] Sodium [Moles/Vol] 146 mmol/L High 136-144 [facility] Comment on above: Order Comment: Speci men Type: VENOUS BLOOD SPECIMENOrdering Facility: [facility] Address: [address] [place] [address] Performed By: #### 2 4344-4 ####[facility] LABORATORYCLIA [id number] [address] HEMOGLOBIN (HGB)on Hemoglobin (Bld) [Mass/Vol] 9.2 g/dL Low 13.0-17.0 [facility] Comment on above: Order Comment: Speci men Type: BLOOD SPECIMENOrdering Facility: [facility] Address: [address] [place] [address] Performed By: #### H GB ####[facility] LABORATORYCLIA [id number] [address] OF [facility] IRON + TIBCon 06-18-2021 Iron [Mass/Vol] 27 ug/dL Low 41-186 [facility] Comment on above: Order Comment: Speci men Type: BLOOD SPECIMENOrdering Facility: [facility] Address: [address] [place] [address] Performed By: #### S ERFOL, IRON, FERR ####[facility]NAPOLISIA [id number] [address] Iron binding capacity [Mass/Vol] 141 ug/dL Low 232-386 [facility] Comment on above: Order Comment: Speci men Type: BLOOD SPECIMENOrdering Facility: [facility] Address: [address] [place] [address] Performed By: #### S ERFOL, IRON, FERR ####[facility] LABORATORYCLIA [id number] [address] OF [facility] Iron saturation [Mass fraction] 19 % Normal 15-57 [facility] [facility] Comment on above: Order Comment: Speci men Type: BLOOD SPECIMENOrdering Facility: [facility] Address: [address] [place] [address] Performed By: #### S ERFOL, IRON, FERR ####[facility] LABORATORYCLIA [id number] [address] [place] Magnesium SerPl-mCncon 06-18 Magnesium [Mass/Vol] 2.5 mg/dL High 1.7-2.3 [facility] Comment on above: Order Comment: Speci men Type: BLOOD SPECIMENOrdering Facility: [facility] Address: [address] [place] [address] Performed By: #### 2 4321-2, 77519-7, 2777-1 ####[facility] LABORATORYCLIA [id number] [address] [facility] NURSING PROGon 06-18-2021 NURSING PROG Normal [facility] Phosphate SerPl-mCncon 06-18 Phosphate [Mass/Vol] 3.0 mg/dL Normal 2.7-4.8 [facility] Comment on above: Order Comment: Speci men Type: BLOOD SPECIMENOrdering Facility: [facility] Address: [address] [place] [address] Performed By: #### 2 4321-2, , 2777-1 ####[facility] LABORATORYCLIA [id number] [address] THERAPY NTon 06-18-2021 THERAPY NT Normal [facility] aPTT PPPon 06-18-2021 aPTT Coag (PPP) [Time] 43.0 s High 23.0-32.[address] [place] Comment on above: Order Comment: Speci men Type: BLOOD SPECIMENOrdering Facility: [facility] Address: [address] [place] [address] Performed By: #### 1 4979-9 ####[facility] LABORATORYCLIA [id number] [address] aPTT Coag (PPP) [Time] 60.6 s High 23.0-32.[address] [place] Comment on above: Order Comment: Speci men Type: BLOOD SPECIMENOrdering Facility: [facility] Address: [address] [place] [address] Performed By: #### 1 4979-9 ####[facility] LABORATORYCLIA [id number] [place] [address] [place] aPTT Coag (PPP) [Time] 46.4 s High 23.0-32.[address] [place] Comment on above: Order Comment: Speci men Type: BLOOD SPECIMENOrdering Facility: [facility] Address: [address] [place] [address] Performed By: #### 1 4979-9 ####[facility] LABORATORYCLIA [id number] [place] [address] [place] Basic metabolic 2000 panelon 06-17-2021 Anion gap [Moles/Vol] 7 mmol/L Low 9-18 [facility] Comment on above: Order Comment: Speci men Type: BLOOD SPECIMENOrdering Facility: [facility] Address: [address] [place] [address] Performed By: #### 2 951-2, 33259-6, 27711-04, 12984-2 ####[facility] HOSPITALCLIA [id number] [place] [address] [place] Calcium [Mass/Vol] 8.1 mg/dL Low 8.5-10.2 [facility] Comment on above: Order Comment: Speci men Type: BLOOD SPECIMENOrdering Facility: [facility] Address: [address] [place] [address] Performed By: #### 2 951-2, 78450-9, 27711-04, 05374-7 ####[facility] LABORATORYCLIA [id number] [address] [place] Chloride [Moles/Vol] 113 mmol/L High 97-105 [facility] Comment on above: Order Comment: Speci men Type: BLOOD SPECIMENOrdering Facility: [facility] Address: [address] [place] [address] Performed By: #### 2 951-2, 26382-6, 2776-, 03863-7 ####[facility] LABORATORYCLIA [id number] [place] [address] [place] [facility] CO2 [Moles/Vol] 25 mmol/L Normal 22-30 [facility] Comment on above: Order Comment: Shira feldman Type: BLOOD SPECIMENOrdering Facility: [facility] Address: [address] [place] [address] Performed By: #### 2 951-2, 27039-2, 2777-1, 41994-4 ####[facility]ORATORYCLIA [id number] [address] OF [facility] Creatinine [Mass/Vol] 0.70 mg/dL Low 0.73-1.22 [facility] Comment on above: Order Comment: Shira feldman Type: BLOOD SPECIMENOrdering Facility: [facility] Address: [address] [place] [address] Performed By: #### 2 951-2, 55339-7, 2777, 42866-2 ####[facility]ORATORYCLIA [id number] [address] GFR/1.73 sq M.predicted MDRD (S/P/Bld) [Vol rate/Area] mL/min/{1.73_m2} Normal [facility] Comment on above: Order Comment: Shira feldman Type: BLOOD SPECIMENOrdering Facility: [facility] Address: [address] [place] [address] Result Comment: >60e GFR (Estimated GFR) Units [...] actual GFR. Performed By: #### 2 951-2, 61046-8, 2777-, 97781-3 ####[facility]ORATORYCLIA [id number] [place] [address] [place] Glucose [Mass/Vol] 122 mg/dL High 74-99 [facility] Comment on above: Order Comment: Speccara men Type: BLOOD SPECIMENOrdering Facility: [facility] Address: [address] [place] [address] Result Comment: The [place] [employer] (ADA) provides guidance for cutoff [...] Standards of Medical Care in Diabetes 2016, [place] [employer]. Diabetes Care. 2016.39(Suppl 1). Performed By: #### 2 951-2, 76680-1, 277-, 78660-6 ####[facility]ORATORYCLIA [id number] [place] [address] [place] Potassium [Moles/Vol] 3.5 mmol/L Low 3.7-5.1 [facility] Comment on above: Order Comment: Shira feldman Type: BLOOD SPECIMENOrdering Facility: [facility] Address: [address] [place] [address] Performed By: #### 2 951-2, , 27711-04, 17641-1 ####[facility]ATORYCLIA [id number] [place] [address] [place] Urea nitrogen [Mass/Vol] 27 mg/dL High 9-24 [facility] Comment on above: Order Comment: Shira feldman Type: BLOOD SPECIMENOrdering Facility: [facility] Address: [address] [place], [place] [address] Performed By: #### 2 951-2, 76158-0, 2776-05, 43623-9 ####[facility]ORATORYCLIA [id number] [address] CASE MANAGEMon 06-17-2021 CASE MANAGEM Normal [facility] CBC panel Auto (Bld)on 06-17 Erythrocyte distribution width (RBC) [Ratio] 15.9 % High 11.5-15.0 [facility] Comment on above: Order Comment: Speci men Type: BLOOD SPECIMENOrdering Facility: [facility] Address: [address] [place] [address] Performed By: #### 5 8410-2 ####[facility]ORATORYCLIA [id number] [address] Hematocrit (Bld) [Volume fraction] 28.9 % Low 39.0-51.0 [facility] Comment on above: Order Comment: Speci men Type: BLOOD SPECIMENOrdering Facility: [facility] Address: [address] [place] [address] Performed By: #### 5 8410-2 ####[facility]ORATORYCLIA [id number] [address] Hemoglobin (Bld) [Mass/Vol] 8.8 g/dL Low 13.0-17.0 [facility] Comment on above: Order Comment: Speci men Type: BLOOD SPECIMENOrdering Facility: [facility] Address: [address] [place] [address] Performed By: #### 5 8410-2 ####[facility]ORATORYCLIA [id number] [address] MCH (RBC) [Entitic mass] 28.4 pg Normal 26.0-34.0 [facility] Comment on above: Order Comment: Speci men Type: BLOOD SPECIMENOrdering Facility: [facility] Address: [address] [place] [address] Performed By: #### 5 8410-2 ####[facility]ORATORYCLIA [id number] [address] STATES [facility] MCHC (RBC) [Mass/Vol] 30.4 g/dL Low 30.5-36.0 [facility] Comment on above: Order Comment: Speci men Type: BLOOD SPECIMENOrdering Facility: [facility] Address: [address] Performed By: #### 5 8410-2 ####[facility] LABORATORYCLIA [id number] [address] STATES [facility] MCV (RBC) [Entitic vol] 93.2 fL Normal 80.0-100.0 [facility] Comment on above: Order Comment: Speci men Type: BLOOD SPECIMENOrdering Facility: [facility] Address: [address] [place], [place] [address] Performed By: #### 5 8410-2 ####[facility]ORATORYCLIA [id number] [address] [place] Nucleated RBC (Bld) [#/Vol] 10*3/uL Normal <0.01 [facility] Comment on above: Order Comment: Speci men Type: BLOOD SPECIMENOrdering Facility: [facility] Address: [address] [place] [address] Performed By: #### 5 8410-2 ####[facility]ORATORYCLIA [id number] [address] [place] Platelet mean volume (Bld) [Entitic vol] 11.9 fL Normal 9.0-12.7 [facility] Comment on above: Order Comment: Speci men Type: BLOOD SPECIMENOrdering Facility: [facility] Address: [address] [place], [place] [address] Performed By: #### 5 8410-2 ####[facility]ORATORYCLIA [id number] [address] OF [place] Platelets (Bld) [#/Vol] 257 10*3/uL Normal 150-400 [facility] Comment on above: Order Comment: Speci men Type: BLOOD SPECIMENOrdering Facility: [facility] Address: [address] [place], [place] [address] Performed By: #### 5 8410-2 ####[facility]ORATORYCLIA [id number] [address] [place] RBC (Bld) [#/Vol] 3.10 10*6/uL Low 4.20-6.00 [facility] Comment on above: Order Comment: Speci men Type: BLOOD SPECIMENOrdering Facility: [facility] Address: [address] [place] [address] Performed By: #### 5 8410-2 ####[facility]ORATORYCLIA [id number] [address] [place] WBC (Bld) [#/Vol] 10.54 10*3/uL Normal 3.70-11.00 [facility] Comment on above: Order Comment: Speci men Type: BLOOD SPECIMENOrdering Facility: [facility] Address: [address] [place] [address] Performed By: #### 5 8410-2 ####[facility]ORATORYCLIA [id number] [address] [place] HEMOGLOBIN (HGB)on Hemoglobin (Bld) [Mass/Vol] 8.8 g/dL Low 13.0-17.0 [facility] Comment on above: Order Comment: Speci men Type: BLOOD SPECIMENOrdering Facility: [facility] Address: [address] [place] [address] Performed By: #### H GB ####[facility]ORATORYCLIA [id number] [address] Magnesium SerPl-mCncon 06-17 Magnesium [Mass/Vol] 2.5 mg/dL High 1.7-2.3 [facility] Comment on above: Order Comment: Speci men Type: BLOOD SPECIMENOrdering Facility: [facility] Address: [address] [place] [address] Performed By: #### 2 951-2, 81103-8, 2777-1, 47179-9 ####[facility]ORATORYCLIA [id number] [place] [address] [place] NURSING PROGon 06-17-2021 NURSING PROG Normal [facility] NURSING PROG Normal [facility] NURSING PROG Normal [facility] Phosphate SerPl-mCncon 06-17 Phosphate [Mass/Vol] 1.9 mg/dL Low 2.7-4.8 [facility] Comment on above: Order Comment: Speci men Type: BLOOD SPECIMENOrdering Facility: [facility] Address: [address] [place] [address] Performed By: #### 2 951-2, 69128-4, 2777-1, 22109-8 ####[facility]ORATORYCLIA [id number] [address] [place] Sodium SerPl-sCncon 06-17-19 Sodium [Moles/Vol] 144 mmol/L Normal 136-144 [facility] Comment on above: Order Comment: Speci men Type: BLOOD SPECIMENOrdering Facility: [facility] Address: [address] [place] [address] Performed By: #### 2 951-2 ####[facility]ORATORYCLIA [id number] [address] STATES OF [facility] Sodium [Moles/Vol] 145 mmol/L High 136-144 [facility] Comment on above: Order Comment: Speci men Type: BLOOD SPECIMENOrdering Facility: [facility] Address: [address] [place] [address] Performed By: #### 2 951-2, , 2776-05, 93269-9 ####[facility]ATORYCLIA [id number] [address] [place] aPTT PPPon 06-17-2021 aPTT Coag (PPP) [Time] 55.8 s High 23.0-32.[address] [place] Comment on above: Order Comment: Speci men Type: BLOOD SPECIMENOrdering Facility: [facility] Address: [address] [place] [address] Performed By: #### 1 4979-9 ####[facility]ORATORYCLIA [id number] [address] ARTERIAL BLOOD GASESon 06-16 Base excess Calc (Bld) [Moles/Vol] 3 mmol/L High 0-2 [facility] Comment on above: Order Comment: Speci men Type: ARTERIAL BLOOD SPECIMENOrdering Facility: [facility] Address: [address] [place] [address] Performed By: #### A LLBG ####[facility]ORATORYCLIA [id number] [address] [place] Body temperature 99.14 [degF] Normal [facility] Comment on above: Order Comment: Speci men Type: ARTERIAL BLOOD SPECIMENOrdering Facility: [facility] Address: [address] [place] [address] Performed By: #### A LLBG ####[facility]ORATORYCLIA [id number] [address] [place] CALCIUM IONIZED, PH CORRECTED 1.21 mmol/L Normal 1.08-1.30 [facility] Comment on above: Order Comment: Speci men Type: ARTERIAL BLOOD SPECIMENOrdering Facility: [facility] Address: [address] [place] [address] Performed By: #### A LLBG ####[facility]ORATORYCLIA [id number] [address] [place] Calcium.ionized (BldV) [Mass/Vol] 1.17 mmol/L Normal 1.08-1.30 [facility] Comment on above: Order Comment: Speci men Type: ARTERIAL BLOOD SPECIMENOrdering Facility: [facility] Address: [address] [place] [address] Performed By: #### A LLBG ####[facility]ORATORYCLIA [id number] [address] [place] Carboxyhemoglobin (BldA) [Mass fraction] 1.4 % Normal 0.0-2.0 [facility] Comment on above: Order Comment: Speci men Type: ARTERIAL BLOOD SPECIMENOrdering Facility: [facility] Address: [address] [place] [address] Result Comment: Carb oxyhemoglobin Reference Range for Smokers: 2.0-8.0% Performed By: #### A LLBG ####[facility]ORYCLIA [id number] [address] [place] CO2 (Bld) [Partial pressure] 38 mm Hg Normal 36-46 [facility] Comment on above: Order Comment: Speci men Type: ARTERIAL BLOOD SPECIMENOrdering Facility: [facility] Address: [address] [place] [address] Performed By: #### A LLBG ####[facility]ATORYCLIA [id number] [place] [address] [place] CO2 [Moles/Vol] 24.5 mmol/L Normal 22-28 [facility] Comment on above: Order Comment: Speci men Type: ARTERIAL BLOOD SPECIMENOrdering Facility: [facility] Address: [address] [place] [address] Performed By: #### A LLBG ####[facility]ATORYCLIA [id number] [address] [place] CO2 adjusted to patient's actual temperature (Bld) [Partial pressure] 38 mmHg Normal 36-46 [facility] Comment on above: Order Comment: Speci men Type: ARTERIAL BLOOD SPECIMENOrdering Facility: [facility] Address: [address] [place] [address] Performed By: #### A LLBG ####[facility]ORATORYCLIA [id number] [place] [address] [place] Glucose [Mass/Vol] 147 mg/dL High 60-105 [facility] Comment on above: Order Comment: Speci men Type: ARTERIAL BLOOD SPECIMENOrdering Facility: [facility] Address: [address] [place] [address] Performed By: #### A LLBG ####[facility]ORYCLIA [id number] [address] OF [facility] HCO3 (Bld) [Moles/Vol] 27 mmol/L High 22-[address] [place] Comment on above: Order Comment: Speci men Type: ARTERIAL BLOOD SPECIMENOrdering Facility: [facility] Address: [address] [place] [address] Performed By: #### A LLBG ####[facility]ATORYCLIA [id number] [address] [place] Hematocrit (Bld) [Volume fraction] 31.8 % Low 39.0-51.0 [facility] Comment on above: Order Comment: Speci men Type: ARTERIAL BLOOD SPECIMENOrdering Facility: [facility] Address: [address] [place] [address] Performed By: #### A LLBG ####[facility]ATORYCLIA [id number] [address] STATES OF [facility] Hemoglobin (Bld) [Mass/Vol] 10.3 g/dL Low 13.0-17.0 [facility] Comment on above: Order Comment: Speci men Type: ARTERIAL BLOOD SPECIMENOrdering Facility: [facility] Address: [address] [place] [address] Performed By: #### A LLBG ####[facility]ATORYCLIA [id number] [address] [place] Methemoglobin (Bld) [Mass fraction] 1.0 % Normal 0.0-1.5 [facility] Comment on above: Order Comment: Speci men Type: ARTERIAL BLOOD SPECIMENOrdering Facility: [facility] Address: [address] [place] [address] Performed By: #### A LLBG ####[facility]ATORYCLIA [id number] [address] OF [place] O2 THERAPY Ventilator Normal [facility] Comment on above: Order Comment: Speci men Type: ARTERIAL BLOOD SPECIMENOrdering Facility: [facility] Address: [address] [place] [address] Performed By: #### A LLBG ####[facility]ATORYCLIA [id number] [address] OF [place] Oxygen (Bld) [Partial pressure] 78 mm Hg Low 85-95 [facility] Comment on above: Order Comment: Speci men Type: ARTERIAL BLOOD SPECIMENOrdering Facility: [facility] Address: [address] [place] [address] Performed By: #### A LLBG ####[facility]ATORYCLIA [id number] [address] OF [place] Oxygen adjusted to patient's actual temperature (Bld) [Partial pressure] 79.7 mmHg Low 85-95 [facility] Comment on above: Order Comment: Speci men Type: ARTERIAL BLOOD SPECIMENOrdering Facility: [facility] Address: [address] [place] [address] Performed By: #### A LLBG ####[facility]ATORYCLIA [id number] [address] [place] OXYGEN SATURATION, ARTERIAL 96 % Normal 95-98 [facility] Comment on above: Order Comment: Speci men Type: ARTERIAL BLOOD SPECIMENOrdering Facility: [facility] Address: [address] [place] [address] Performed By: #### A LLBG ####[facility]ATORYCLIA [id number] [address] [place] Oxyhemoglobin (BldA) [Mass fraction] 94 % Low 95-98 [facility] Comment on above: Order Comment: Speci men Type: ARTERIAL BLOOD SPECIMENOrdering Facility: [facility] Address: [address] [address] Performed By: #### A LLBG ####[facility]ATORYCLIA [id number] [place] [address] [place] pH (Bld) 7.47 [pH] High 7.35-7.45 [facility] Comment on above: Order Comment: Speci men Type: ARTERIAL BLOOD SPECIMENOrdering Facility: [facility] Address: [address] [address] Performed By: #### A LLBG ####[facility]ORATORYCLIA [id number] [address] pH adjusted to patient's actual temperature (Bld) 7.46 High 7.35-7.45 [facility] Comment on above: Order Comment: Speci men Type: ARTERIAL BLOOD SPECIMENOrdering Facility: [facility] Address: [address] [place] [address] Performed By: #### A LLBG ####[facility]ORATORYCLIA [id number] [address] STATES OF [facility] Potassium [Moles/Vol] 3.7 mmol/L Normal 3.5-5.0 [facility] Comment on above: Order Comment: Speci men Type: ARTERIAL BLOOD SPECIMENOrdering Facility: [facility] Address: [address] [place] [address] Performed By: #### A LLBG ####[facility]ATORYCLIA [id number] [address] STATES [facility] Sodium [Moles/Vol] 155 mmol/L High 136-144 [facility] Comment on above: Order Comment: Speci men Type: ARTERIAL BLOOD SPECIMENOrdering Facility: [facility] Address: [address] [place] [address] Performed By: #### A LLBG ####[facility]ORATORYCLIA [id number] [address] STATES OF [facility] Bacteria Spec Resp Culton Bacteria identified Respiratory culture Nom (Unsp spec) CULTURE, RESPIRATORY: Rare Normal respiratory chris present ORGANISM ID: 1 Few Yeast, not cryptococcus neoformans GRAM STAIN: No organisms seen Few Polymorphonuclear leukocytes Few Epithelial cells Abnormal [facility] Comment on above: Performed By: #### 3 2355-0 ####[facility]ATORYCLIA [id number] [address] [place] Basic metabolic 2000 panelon 06-16-2021 Anion gap [Moles/Vol] 9 mmol/L Normal 9-18 [facility] Comment on above: Order Comment: Speci men Type: BLOOD SPECIMENOrdering Facility: [facility] Address: [address] [place] [address] Performed By: #### 2 4321-2 ####[facility]ATORYCLIA [id number] [place] [address] [place] Calcium [Mass/Vol] 8.4 mg/dL Low 8.5-10.2 [facility] Comment on above: Order Comment: Speci men Type: BLOOD SPECIMENOrdering Facility: [facility] Address: [address] [place] [address] Performed By: #### 2 4321-2 ####[facility] LABORATORYCLIA [id number] [place] [address] [place] Chloride [Moles/Vol] 120 mmol/L High 97-105 [facility] Comment on above: Order Comment: Speci men Type: BLOOD SPECIMENOrdering Facility: [facility] Address: [address] [place] [address] Performed By: #### 2 4321-2 ####[facility] LABORATORYCLIA [id number] [address] [place] CO2 [Moles/Vol] 27 mmol/L Normal 22-30 [facility] Comment on above: Order Comment: Speci men Type: BLOOD SPECIMENOrdering Facility: [facility] Address: [address] [place] [address] Performed By: #### 2 4321-2 ####[facility] LABORATORYCLIA [id number] [place] [address] [place] Creatinine [Mass/Vol] 0.75 mg/dL Normal 0.73-1.22 [facility] Comment on above: Order Comment: Speci men Type: BLOOD SPECIMENOrdering Facility: [facility] Address: [address] [place] [address] Performed By: #### 2 4321-2 ####[facility] [facility]ATORYCLIA [id number] [address] [place] GFR/1.73 sq M.predicted MDRD (S/P/Bld) [Vol rate/Area] mL/min/{1.73_m2} Normal [facility] Comment on above: Order Comment: Johncara francia Type: BLOOD SPECIMENOrdering Facility: [facility] Address: [address] [place], [place] [id number] Result Comment: >60e GFR (Estimated GFR) Units [...] actual GFR. Performed By: #### 2 4321-2 ####[facility]ITAL[facility] [id number] [address] [place] Glucose [Mass/Vol] 160 mg/dL High 74-99 [facility] Comment on above: Order Comment: Shira feldman Type: BLOOD SPECIMENOrdering Facility: [facility] Address: [address] [place] [address] Result Comment: The [place] [employer] (ADA) provides guidance for cutoff [...] Standards of Medical Care in Diabetes 2016, [place] [employer]. Diabetes Care. 2016.39(Suppl 1). Performed By: #### 2 4321-2 ####[facility] LABORATORYCLIA [id number] [place] [address] [place] Potassium [Moles/Vol] 3.1 mmol/L Low 3.7-5.1 [facility] Comment on above: Order Comment: Speci men Type: BLOOD SPECIMENOrdering Facility: [facility] Address: [address] [place] [address] Performed By: #### 2 4321-2 ####[facility] LABORATORYCLIA [id number] [address] [place] Sodium [Moles/Vol] 156 mmol/L High 136-144 [facility] Comment on above: Order Comment: Speci men Type: BLOOD SPECIMENOrdering Facility: [facility] Address: [address] [place] [address] Performed By: #### 2 4321-2 ####[facility] LABORATORYCLIA [id number] [address] [place] Urea nitrogen [Mass/Vol] 33 mg/dL High 9-24 [facility] Comment on above: Order Comment: Speci men Type: BLOOD SPECIMENOrdering Facility: [facility] Address: [address] [place] [address] Performed By: #### 2 4321-2 ####[facility] LABORATORYCLIA [id number] [address] [place] CASE MANAGEMon 06-16-2021 CASE MANAGEM Normal [facility] CBC panel Auto (Bld)on 06-16 Erythrocyte distribution width (RBC) [Ratio] 15.9 % High 11.5-15.0 [facility] Comment on above: Order Comment: Speci men Type: BLOOD SPECIMENOrdering Facility: [facility] Address: [address] [place] [address] Performed By: #### 5 8410-2 ####[facility] LABORATORYCLIA [id number] [address] [place] Hematocrit (Bld) [Volume fraction] 34.6 % Low 39.0-51.0 [facility] Comment on above: Order Comment: Speci men Type: BLOOD SPECIMENOrdering Facility: [facility] Address: [address] [place] [address] Performed By: #### 5 8410-2 ####[facility] LABORATORYCLIA [id number] [address] Hemoglobin (Bld) [Mass/Vol] 10.2 g/dL Low 13.0-17.0 [facility] Comment on above: Order Comment: Speci men Type: BLOOD SPECIMENOrdering Facility: [facility] Address: [address] [place] [address] Performed By: #### 5 8410-2 ####[facility] LABORATORYCLIA [id number] [address] OF [facility] MCH (RBC) [Entitic mass] 28.5 pg Normal 26.0-34.0 [facility] Comment on above: Order Comment: Speci men Type: BLOOD SPECIMENOrdering Facility: [facility] Address: [address] [place] [address] Performed By: #### 5 8410-2 ####[facility] LABORATORYCLIA [id number] [address] OF [facility] MCHC (RBC) [Mass/Vol] 29.5 g/dL Low 30.5-36.0 [facility] Comment on above: Order Comment: Speci men Type: BLOOD SPECIMENOrdering Facility: [facility] Address: [address] [place] [address] Performed By: #### 5 8410-2 ####[facility] LABORATORYCLIA [id number] [address] OF [facility] MCV (RBC) [Entitic vol] 96.6 fL Normal 80.0-100.0 [facility] Comment on above: Order Comment: Speci men Type: BLOOD SPECIMENOrdering Facility: [facility] Address: [address] [place] [address] Performed By: #### 5 8410-2 ####[facility] LABORATORYCLIA [id number] [address] [place] Nucleated RBC (Bld) [#/Vol] 10*3/uL Normal <0.01 [facility] Comment on above: Order Comment: Speci men Type: BLOOD SPECIMENOrdering Facility: [facility] Address: [address] [place] [address] Performed By: #### 5 8410-2 ####[facility] LABORATORYCLIA [id number] [address] [place] Platelet mean volume (Bld) [Entitic vol] 11.9 fL Normal 9.0-12.7 [facility] Comment on above: Order Comment: Speci men Type: BLOOD SPECIMENOrdering Facility: [facility] Address: [address] [place] [address] Performed By: #### 5 8410-2 ####[facility] LABORATORYCLIA [id number] [address] [place] Platelets (Bld) [#/Vol] 269 10*3/uL Normal 150-400 [facility] Comment on above: Order Comment: Speci men Type: BLOOD SPECIMENOrdering Facility: [facility] Address: [address] [place] [address] Performed By: #### 5 8410-2 ####[facility] LABORATORYCLIA [id number] [address] [place] RBC (Bld) [#/Vol] 3.58 10*6/uL Low 4.20-6.00 [facility] Comment on above: Order Comment: Speci men Type: BLOOD SPECIMENOrdering Facility: [facility] Address: [address] [place] [address] Performed By: #### 5 8410-2 ####[facility] LABORATORYCLIA [id number] [address] [place] WBC (Bld) [#/Vol] 13.11 10*3/uL High 3.70-11.00 [facility] Comment on above: Order Comment: Speci men Type: BLOOD SPECIMENOrdering Facility: [facility] Address: [address] [place] [address] Performed By: #### 5 8410-2 ####[facility] LABORATORYCLIA [id number] [place] [address] [place] CONSULTon 06-16-2021 CONSULT Normal [facility] CONSULT PROGon 06-16-2021 CONSULT PROG Normal [facility] CT BRAIN WO IVCONon 06-16-[address] BRAIN WO IVCON Normal [facility] HEMOGLOBIN (HGB)on 2 Hemoglobin (Bld) [Mass/Vol] 8.9 g/dL Low 13.0-17.0 [facility] Comment on above: Order Comment: Speci men Type: BLOOD SPECIMENOrdering Facility: [facility] Address: [address] [place] [address] Performed By: #### H GB ####[facility] LABORATORYCLIA [id number] [address] STATES [facility] Hemoglobin (Bld) [Mass/Vol] 9.6 g/dL Low 13.0-17.0 [facility] Comment on above: Order Comment: Speci men Type: BLOOD SPECIMENOrdering Facility: [facility] Address: [address] [place] [address] Performed By: #### H GB ####[facility] LABORATORYCLIA [id number] [address] [place] Magnesium SerPl-mCncon 06-16 Magnesium [Mass/Vol] 2.7 mg/dL High 1.7-2.3 [facility] Comment on above: Order Comment: Speci men Type: BLOOD SPECIMENOrdering Facility: [facility] Address: [address] [place] [address] Performed By: #### 1 9123-9 ####[facility] LABORATORYCLIA [id number] [place] [address] [place] NURSING PROGon 06-16-2021 NURSING PROG Normal [facility] NUTRITIONon 02-10-2022 NUTRITION Normal [facility] Phosphate SerPl-mCncon 06-16 Phosphate [Mass/Vol] 1.4 mg/dL Low 2.7-4.8 [facility] Comment on above: Order Comment: Speci men Type: BLOOD SPECIMENOrdering Facility: [facility] Address: [address] [place] [address] Performed By: #### 2 777-1 ####[facility] LABORATORYCLIA [id number] [place] [address] [place] [facility] [place] STAPH AUREUS PCRon 2 S. aureus and MRSA panel MEGAN+probe (Nose) Normal Negative [facility] Comment on above: Order Comment: Speci men Type: SWAB OF INTERNAL NOSEOrdering Facility: [facility] Address: [address] [place] [address] Result Comment: Nega tive for Staphylococcus aureus by PCR.Negative for MRSA by PCR Performed By: #### S APCR ####[facility] LABORATORYCLIA [id number] [place] [address] [place] Sodium SerPl-sCncon 06-16-19 22 Sodium [Moles/Vol] 150 mmol/L High 136-144 [facility] Comment on above: Order Comment: Speci men Type: BLOOD SPECIMENOrdering Facility: [facility] Address: [address] [place] [address] Performed By: #### 2 951-2 ####[facility] LABORATORYCLIA [id number] [place] [address] [place] Sodium [Moles/Vol] 153 mmol/L High 136-144 [facility] Comment on above: Order Comment: Speci men Type: BLOOD SPECIMENOrdering Facility: [facility] Address: [address] [place] [address] Performed By: #### 2 951-2 ####[facility] LABORATORYCLIA [id number] [place] [address] [place] Sodium [Moles/Vol] 158 mmol/L High 136-144 [facility] Comment on above: Order Comment: Speci men Type: BLOOD SPECIMENOrdering Facility: [facility] Address: [address] [place] [address] Performed By: #### 2 951-2 ####[facility] LABORATORYCLIA [id number] [address] aPTT PPPon 06-16-2021 aPTT Coag (PPP) [Time] 61.8 s High 23.0-32.4 [place] Comment on above: Order Comment: Speci men Type: BLOOD SPECIMENOrdering Facility: [facility] Address: [address] [place] [address] Performed By: #### 1 4979-9 ####[facility] LABORATORYCLIA [id number] [address] aPTT Coag (PPP) [Time] 57.6 s High 23.0-32.[address] [place] Comment on above: Order Comment: Speci men Type: BLOOD SPECIMENOrdering Facility: [facility] Address: [address] [place] [address] Performed By: #### 1 4979-9 ####[facility] LABORATORYCLIA [id number] [address] [place] ALLIED HEALTHon 06-15-2021 ALLIED HEALTH Normal [facility] ALLIED HEALTH Normal [facility] ALLIED HEALTH Normal [facility] ALLIED HEALTH Normal [facility] ARTERIAL BLOOD GASESon 06-15 Base excess Calc (Bld) [Moles/Vol] 3 mmol/L High 0-2 [facility] Comment on above: Order Comment: Speci men Type: ARTERIAL BLOOD SPECIMENOrdering Facility: [facility] Address: [address] [place] [address] Performed By: #### A LLBG ####[facility] LABORATORYCLIA [id number] [address] Body temperature 99.5 [degF] Normal [facility] Comment on above: Order Comment: Speci men Type: ARTERIAL BLOOD SPECIMENOrdering Facility: [facility] Address: [address] [place] [address] Performed By: #### A LLBG ####[facility] LABORATORYCLIA [id number] [address] OF [facility] CALCIUM IONIZED, PH CORRECTED 1.34 mmol/L High 1.08-1.30 [facility] Comment on above: Order Comment: Speci men Type: ARTERIAL BLOOD SPECIMENOrdering Facility: [facility] Address: [address] [place] [address] Performed By: #### A LLBG ####[facility] LABORATORYCLIA [id number] [address] [place] Calcium.ionized (BldV) [Mass/Vol] 1.29 mmol/L Normal 1.08-1.30 [facility] Comment on above: Order Comment: Speci men Type: ARTERIAL BLOOD SPECIMENOrdering Facility: [facility] Address: [address] [place] [address] Performed By: #### A LLBG ####[facility] LABORATORYCLIA [id number] [address] Carboxyhemoglobin (BldA) [Mass fraction] 1.3 % Normal 0.0-2.0 [facility] Comment on above: Order Comment: Speci men Type: ARTERIAL BLOOD SPECIMENOrdering Facility: [facility] Address: [address] [place] [address] Result Comment: Carb oxyhemoglobin Reference Range for Smokers: 2.0-8.0% Performed By: #### A LLBG ####[facility] LABORATORYCLIA [id number] [address] [place] CO2 (Bld) [Partial pressure] 37 mm Hg Normal 36-46 [facility] Comment on above: Order Comment: Speci men Type: ARTERIAL BLOOD SPECIMENOrdering Facility: [facility] Address: [address] [place] [address] Performed By: #### A LLBG ####[facility]ORATORYCLIA [id number] [address] CO2 [Moles/Vol] 24.6 mmol/L Normal 22-28 [facility] Comment on above: Order Comment: Speci men Type: ARTERIAL BLOOD SPECIMENOrdering Facility: [facility] Address: [address] [place] [address] Performed By: #### A LLBG ####[facility]ATORYCLIA [id number] [address] CO2 adjusted to patient's actual temperature (Bld) [Partial pressure] 38 mmHg Normal 36-46 [facility] Comment on above: Order Comment: Speci men Type: ARTERIAL BLOOD SPECIMENOrdering Facility: [facility] Address: [address] [place] [address] Performed By: #### A LLBG ####[facility]ATORYCLIA [id number] [address] FIO2 100 % Normal [facility] Comment on above: Order Comment: Speci men Type: ARTERIAL BLOOD SPECIMENOrdering Facility: [facility] Address: [address] [place] [address] Performed By: #### A LLBG ####[facility]ATORYCLIA [id number] [address] [place] Glucose [Mass/Vol] 159 mg/dL High 60-105 [facility] Comment on above: Order Comment: Speci men Type: ARTERIAL BLOOD SPECIMENOrdering Facility: [facility] Address: [address] [place] [address] Performed By: #### A LLBG ####[facility]ATORYCLIA [id number] [address] [place] HCO3 (Bld) [Moles/Vol] 27 mmol/L High 22-[address] [place] Comment on above: Order Comment: Speci men Type: ARTERIAL BLOOD SPECIMENOrdering Facility: [facility] Address: [address] [place] [address] Performed By: #### A LLBG ####[facility]ORATORYCLIA [id number] [address] [place] Hematocrit (Bld) [Volume fraction] 31.0 % Low 39.0-51.0 [facility] Comment on above: Order Comment: Speci men Type: ARTERIAL BLOOD SPECIMENOrdering Facility: [facility] Address: [address] [address] Performed By: #### A LLBG ####[facility] LABORATORYCLIA [id number] [address] [place] Hemoglobin (Bld) [Mass/Vol] 10.0 g/dL Low 13.0-17.0 [facility] Comment on above: Order Comment: Speci men Type: ARTERIAL BLOOD SPECIMENOrdering Facility: [facility] Address: [address] [place] [address] Performed By: #### A LLBG ####[facility]ORATORYCLIA [id number] [address] [place] Methemoglobin (Bld) [Mass fraction] % Normal 0.0-1.5 [facility] Comment on above: Order Comment: Speci men Type: ARTERIAL BLOOD SPECIMENOrdering Facility: [facility] Address: [address] [place] [address] Performed By: #### A LLBG ####[facility] LABORATORYCLIA [id number] [address] [place] O2 THERAPY Ventilator Normal [facility] Comment on above: Order Comment: Speci men Type: ARTERIAL BLOOD SPECIMENOrdering Facility: [facility] Address: [address] [address] Performed By: #### A LLBG ####[facility] LABORATORYCLIA [id number] [address] [place] Oxygen (Bld) [Partial pressure] 279 mm Hg High 85-95 [facility] Comment on above: Order Comment: Speci men Type: ARTERIAL BLOOD SPECIMENOrdering Facility: [facility] Address: [address] [address] Performed By: #### A LLBG ####[facility]ATORYCLIA [id number] [address] [place] Oxygen adjusted to patient's actual temperature (Bld) [Partial pressure] 281 mmHg High 85-95 [facility] Comment on above: Order Comment: Speci men Type: ARTERIAL BLOOD SPECIMENOrdering Facility: [facility] Address: [address] [place] [address] Performed By: #### A LLBG ####[facility]ORATORYCLIA [id number] [address] [place] OXYGEN SATURATION, ARTERIAL 100 % High 95-98 [facility] Comment on above: Order Comment: Speci men Type: ARTERIAL BLOOD SPECIMENOrdering Facility: [facility] Address: [address] [place] [address] Performed By: #### A LLBG ####[facility]ORATORYCLIA [id number] [address] Oxyhemoglobin (BldA) [Mass fraction] 98 % Normal 95-98 [facility] Comment on above: Order Comment: Speci men Type: ARTERIAL BLOOD SPECIMENOrdering Facility: [facility] Address: [address] [place] [address] Performed By: #### A LLBG ####[facility]ORATORYCLIA [id number] [address] [place] pH (Bld) 7.47 [pH] High 7.35-7.45 [facility] Comment on above: Order Comment: Speci men Type: ARTERIAL BLOOD SPECIMENOrdering Facility: [facility] Address: [address] [place] [address] Performed By: #### A LLBG ####[facility]ORATORYCLIA [id number] [address] pH adjusted to patient's actual temperature (Bld) 7.46 High 7.35-7.45 [facility] Comment on above: Order Comment: Speci men Type: ARTERIAL BLOOD SPECIMENOrdering Facility: [facility] Address: [address] [place] [address] Performed By: #### A LLBG ####[facility]ORATORYCLIA [id number] [address] [place] Potassium [Moles/Vol] 3.6 mmol/L Normal 3.5-5.0 [facility] Comment on above: Order Comment: Speci men Type: ARTERIAL BLOOD SPECIMENOrdering Facility: [facility] Address: [address] [place] [address] Performed By: #### A LLBG ####[facility]ORATORYCLIA [id number] [place] [address] [place] Sodium [Moles/Vol] 162 mmol/L High 136-144 [facility] Comment on above: Order Comment: Speci men Type: ARTERIAL BLOOD SPECIMENOrdering Facility: [facility] Address: [address] [place] [address] Performed By: #### A LLBG ####[facility]ORATORYCLIA [id number] [address] [place] Base excess Calc (Bld) [Moles/Vol] 4 mmol/L High 0-2 [facility] Comment on above: Order Comment: Speci men Type: ARTERIAL BLOOD SPECIMENOrdering Facility: [facility] Address: [address] [place] [address] Performed By: #### A LLBG ####[facility]ORATORYCLIA [id number] [place] [address] [place] Body temperature 100.58 [degF] Normal [facility] Comment on above: Order Comment: Speci men Type: ARTERIAL BLOOD SPECIMENOrdering Facility: [facility] Address: [address] [place] [address] Performed By: #### A LLBG ####[facility]ORATORYCLIA [id number] [address] [place] CALCIUM IONIZED, PH CORRECTED 1.34 mmol/L High 1.08-1.30 [facility] Comment on above: Order Comment: Speci men Type: ARTERIAL BLOOD SPECIMENOrdering Facility: [facility] Address: [address] [place] [address] Performed By: #### A LLBG ####[facility]ORATORYCLIA [id number] [address] Calcium.ionized (BldV) [Mass/Vol] 1.33 mmol/L High 1.08-1.30 [facility] Comment on above: Order Comment: Speci men Type: ARTERIAL BLOOD SPECIMENOrdering Facility: [facility] Address: [address] [place] [address] Performed By: #### A LLBG ####[facility]ORATORYCLIA [id number] [address] Carboxyhemoglobin (BldA) [Mass fraction] 1.5 % Normal 0.0-2.0 [facility] Comment on above: Order Comment: Speci men Type: ARTERIAL BLOOD SPECIMENOrdering Facility: [facility] Address: [address] [place] [address] Result Comment: Carb oxyhemoglobin Reference Range for Smokers: 2.0-8.0% Performed By: #### A LLBG ####[facility]ORYCLIA [id number] [address] CO2 (Bld) [Partial pressure] 46 mm Hg Normal 36-46 [facility] Comment on above: Order Comment: Speci men Type: ARTERIAL BLOOD SPECIMENOrdering Facility: [facility] Address: [address] [place] [address] Performed By: #### A LLBG ####[facility]ORYCLIA [id number] [address] [place] CO2 [Moles/Vol] 26.4 mmol/L Normal 22-28 [facility] Comment on above: Order Comment: Speci men Type: ARTERIAL BLOOD SPECIMENOrdering Facility: [facility] Address: [address] [place] [address] Performed By: #### A LLBG ####[facility]ORATORYCLIA [id number] [place] [address] CO2 adjusted to patient's actual temperature (Bld) [Partial pressure] 48 mmHg High 36-46 [facility] Comment on above: Order Comment: Speci men Type: ARTERIAL BLOOD SPECIMENOrdering Facility: [facility] Address: [address] [place] [address] Performed By: #### A LLBG ####[facility]ORATORYCLIA [id number] [address] [place] FIO2 100 % Normal [facility] Comment on above: Order Comment: Speci men Type: ARTERIAL BLOOD SPECIMENOrdering Facility: [facility] Address: [address] [place] [address] Performed By: #### A LLBG ####[facility]ORATORYCLIA [id number] [address] Glucose [Mass/Vol] 132 mg/dL High 60-105 [facility] Comment on above: Order Comment: Speci men Type: ARTERIAL BLOOD SPECIMENOrdering Facility: [facility] Address: [address] [place] [address] Performed By: #### A LLBG ####[facility] LABORATORYCLIA [id number] [address] HCO3 (Bld) [Moles/Vol] 29 mmol/L High 22-26 [place] Comment on above: Order Comment: Speci men Type: ARTERIAL BLOOD SPECIMENOrdering Facility: [facility] Address: [address] [place] [address] Performed By: #### A LLBG ####[facility] LABORATORYCLIA [id number] [address] [place] Hematocrit (Bld) [Volume fraction] 32.3 % Low 39.0-51.0 [facility] Comment on above: Order Comment: Speci men Type: ARTERIAL BLOOD SPECIMENOrdering Facility: [facility] Address: [address] [place] [address] Performed By: #### A LLBG ####[facility] LABORATORYCLIA [id number] [address] OF [facility] Hemoglobin (Bld) [Mass/Vol] 10.4 g/dL Low 13.0-17.0 [facility] Comment on above: Order Comment: Speci men Type: ARTERIAL BLOOD SPECIMENOrdering Facility: [facility] Address: [address] [place] [address] Performed By: #### A LLBG ####[facility] LABORATORYCLIA [id number] [address] Methemoglobin (Bld) [Mass fraction] % Normal 0.0-1.5 [facility] Comment on above: Order Comment: Speci men Type: ARTERIAL BLOOD SPECIMENOrdering Facility: [facility] Address: [address] [place] [address] Performed By: #### A LLBG ####[facility]PITALCLIA [id number] [address] O2 THERAPY NR=Non-Rebreather Mask Normal [place] Comment on above: Order Comment: Speci men Type: ARTERIAL BLOOD SPECIMENOrdering Facility: [facility] Address: [address] [place] [address] Performed By: #### A LLBG ####[facility]ORATORYCLIA [id number] [address] Oxygen (Bld) [Partial pressure] 130 mm Hg High 85-95 [facility] Comment on above: Order Comment: Speci men Type: ARTERIAL BLOOD SPECIMENOrdering Facility: [facility] Address: [address] [place] [address] Performed By: #### A LLBG ####[facility]ORATORYCLIA [id number] [address] Oxygen adjusted to patient's actual temperature (Bld) [Partial pressure] 136 mmHg High 85-95 [facility] Comment on above: Order Comment: Speci men Type: ARTERIAL BLOOD SPECIMENOrdering Facility: [facility] Address: [address] [place] [address] Performed By: #### A LLBG ####[facility]ORATORYCLIA [id number] [address] OXYGEN SATURATION, ARTERIAL 99 % High 95-98 [facility] Comment on above: Order Comment: Speci men Type: ARTERIAL BLOOD SPECIMENOrdering Facility: [facility] Address: [address] [place] [address] Performed By: #### A LLBG ####[facility]ORATORYCLIA [id number] [address] OF [place] Oxyhemoglobin (BldA) [Mass fraction] 97 % Normal 95-98 [facility] Comment on above: Order Comment: Speci men Type: ARTERIAL BLOOD SPECIMENOrdering Facility: [facility] Address: [address] [place] [address] Performed By: #### A LLBG ####[facility]ORATORYCLIA [id number] [address] [place] pH (Bld) 7.41 [pH] Normal 7.35-7.45 [facility] Comment on above: Order Comment: Speci men Type: ARTERIAL BLOOD SPECIMENOrdering Facility: [facility] Address: [address] [place] [address] Performed By: #### A LLBG ####[facility]ATORYCLIA [id number] [address] pH adjusted to patient's actual temperature (Bld) 7.40 Normal 7.35-7.45 [facility] Comment on above: Order Comment: Speci men Type: ARTERIAL BLOOD SPECIMENOrdering Facility: [facility] Address: [address] [place] [address] Performed By: #### A LLBG ####[facility]ATORYCLIA [id number] [address] [place] Potassium [Moles/Vol] 3.8 mmol/L Normal 3.5-5.0 [facility] Comment on above: Order Comment: Speci men Type: ARTERIAL BLOOD SPECIMENOrdering Facility: [facility] Address: [address] [place] [address] Performed By: #### A LLBG ####[facility]ORATORYCLIA [id number] [place] [address] [place] Sodium [Moles/Vol] 166 mmol/L High 136-144 [facility] Comment on above: Order Comment: Speci men Type: ARTERIAL BLOOD SPECIMENOrdering Facility: [facility] Address: [address] [place] [address] Performed By: #### A LLBG ####[facility]ORATORYCLIA [id number] [address] [place] Bacteria Bld Culton 06-15-19 22 Bacteria identified Cx Nom (Bld) CULTURE, BLOOD: No growth 5 days Normal [facility] Comment on above: Performed By: #### 6 00-7 ####[facility]ORATORYCLIA [id number] [place] [address] [place] Basic metabolic 2000 panelon 06-15-2021 Anion gap [Moles/Vol] 9 mmol/L Normal 9-18 [facility] Comment on above: Order Comment: Speci men Type: BLOOD SPECIMEN Performed By: #### 2 4321-2, 2776-05, ####[facility]ATORYCLIA [id number] [address] [place] Calcium [Mass/Vol] 9.0 mg/dL Normal 8.5-10.2 [facility] Comment on above: Order Comment: Speci men Type: BLOOD SPECIMEN Performed By: #### 2 4321-2, 2776-05, ####[facility]ORYCLIA [id number] [address] [place] Chloride [Moles/Vol] 125 mmol/L High 97-105 [facility] Comment on above: Order Comment: Speci men Type: BLOOD SPECIMEN Performed By: #### 2 4321-2, 2776-05, ####[facility]ATORYCLIA [id number] [place] [address] [facility] CO2 [Moles/Vol] 29 mmol/L Normal 22-30 [facility] Comment on above: Order Comment: Speci men Type: BLOOD SPECIMEN Performed By: #### 2 4321-2, 2776-05, ####[facility]ATORYCLIA [id number] [place] [address] [place] Creatinine [Mass/Vol] 0.81 mg/dL Normal 0.73-1.22 [facility] Comment on above: Order Comment: Speci men Type: BLOOD SPECIMEN Performed By: #### 2 4321-2, 2776-05, ####[facility]ATORYCLIA [id number] [address] GFR/1.73 sq M.predicted MDRD (S/P/Bld) [Vol rate/Area] mL/min/{1.73_m2} Normal [facility] Comment on above: Order [...] GFR. Performed By: #### 2 4321-2, 2776-05, ####[facility]ORATORYCLIA [id number] [place] [id number] [place] Glucose [Mass/Vol] 124 mg/dL High 74-99 [facility] Comment on above: Order Comment: Speci men Type: BLOOD SPECIMEN Result Comment: The [place] [employer] (ADA) provides guidance for cutoff [...] Standards of Medical Care in Diabetes 2016, [place] [employer]. Diabetes Care. 2016.39(Suppl 1). Performed By: #### 2 4321-2, 2776-05, ####[facility]ORATORYCLIA [id number] [place] [address] [place] Potassium [Moles/Vol] 3.8 mmol/L Normal 3.7-5.1 [facility] Comment on above: Order Comment: Speci men Type: BLOOD SPECIMEN Performed By: #### 2 4321-2, 2776-05, ####[facility]ATORYCLIA [id number] [address] [place] Sodium [Moles/Vol] 163 mmol/L High 136-144 [facility] Comment on above: Order Comment: Speci men Type: BLOOD SPECIMEN Performed By: #### 2 4321-2, 2776-05, ####[facility]ATORYCLIA [id number] [place] [address] [place] Urea nitrogen [Mass/Vol] 35 mg/dL High 9-24 [facility] Comment on above: Order Comment: Speci men Type: BLOOD SPECIMEN Performed By: #### 2 4321-2, 2776-05, ####[facility]ATORYCLIA [id number] [place] [address] [place] CBC panel Auto (Bld)on 06-15 Erythrocyte distribution width (RBC) [Ratio] 16.3 % High 11.5-15.0 [facility] Comment on above: Order Comment: Speci men Type: BLOOD SPECIMENOrdering Facility: [facility] Address: [address] [address] Performed By: #### 5 8410-2 ####[facility]ORATORYCLIA [id number] [address] Hematocrit (Bld) [Volume fraction] 30.0 % Low 39.0-51.0 [facility] Comment on above: Order Comment: Speci men Type: BLOOD SPECIMENOrdering Facility: [facility] Address: [address] [place] [address] Performed By: #### 5 8410-2 ####[facility]ATORYCLIA [id number] [address] Hemoglobin (Bld) [Mass/Vol] 8.9 g/dL Low 13.0-17.0 [facility] Comment on above: Order Comment: Speci men Type: BLOOD SPECIMENOrdering Facility: [facility] Address: [address] [place] [address] Performed By: #### 5 8410-2 ####[facility]ORATORYCLIA [id number] [address] MCH (RBC) [Entitic mass] 28.7 pg Normal 26.0-34.0 [facility] Comment on above: Order Comment: Speci men Type: BLOOD SPECIMENOrdering Facility: [facility] Address: [address] [place] [address] Performed By: #### 5 8410-2 ####[facility]ATORYCLIA [id number] [address] MCHC (RBC) [Mass/Vol] 29.7 g/dL Low 30.5-36.0 [facility] Comment on above: Order Comment: Speci men Type: BLOOD SPECIMENOrdering Facility: [facility] Address: [address] [place] [address] Performed By: #### 5 8410-2 ####[facility]ORATORYCLIA [id number] [address] MCV (RBC) [Entitic vol] 96.8 fL Normal 80.0-100.0 [facility] Comment on above: Order Comment: Speci men Type: BLOOD SPECIMENOrdering Facility: [facility] Address: [facility] [address] Performed By: #### 5 8410-2 ####[facility]ORATORYCLIA [id number] [address] [place] Nucleated RBC (Bld) [#/Vol] 10*3/uL Normal <0.01 [facility] Comment on above: Order Comment: Speci men Type: BLOOD SPECIMENOrdering Facility: [facility] Address: [address] [place] [address] Performed By: #### 5 8410-2 ####[facility]ORATORYCLIA [id number] [address] [place] Platelet mean volume (Bld) [Entitic vol] 12.3 fL Normal 9.0-12.7 [facility] Comment on above: Order Comment: Speci men Type: BLOOD SPECIMENOrdering Facility: [facility] Address: [address] [place] [address] Performed By: #### 5 8410-2 ####[facility]ATORYCLIA [id number] [address] [place] Platelets (Bld) [#/Vol] 226 10*3/uL Normal 150-400 [facility] Comment on above: Order Comment: Speci men Type: BLOOD SPECIMENOrdering Facility: [facility] Address: [address] [place], [place] [address] Performed By: #### 5 8410-2 ####[facility]ATORYCLIA [id number] [address] [place] RBC (Bld) [#/Vol] 3.10 10*6/uL Low 4.20-6.00 [facility] Comment on above: Order Comment: Speci men Type: BLOOD SPECIMENOrdering Facility: [facility] Address: [address] [place], [place] [address] Performed By: #### 5 8410-2 ####[facility]ORATORYCLIA [id number] [address] STATES OF [facility] WBC (Bld) [#/Vol] 10.77 10*3/uL Normal 3.70-11.00 [facility] Comment on above: Order Comment: Speci men Type: BLOOD SPECIMENOrdering Facility: [facility] Address: [address] [place] [address] Performed By: #### 5 8410-2 ####[facility]ATORYCLIA [id number] [address] Erythrocyte distribution width (RBC) [Ratio] 16.2 % High 11.5-15.0 [facility] Comment on above: Order Comment: Speci men Type: BLOOD SPECIMENOrdering Facility: [facility] Address: [address] [place] [address] Performed By: #### 5 8410-2 ####[facility]ATORYCLIA [id number] [address] Hematocrit (Bld) [Volume fraction] 34.8 % Low 39.0-51.0 [facility] Comment on above: Order Comment: Speci men Type: BLOOD SPECIMENOrdering Facility: [facility] Address: [address] [place] [address] Performed By: #### 5 8410-2 ####[facility]ATORYCLIA [id number] [address] STATES OF [facility] Hemoglobin (Bld) [Mass/Vol] 10.0 g/dL Low 13.0-17.0 [facility] Comment on above: Order Comment: Speci men Type: BLOOD SPECIMENOrdering Facility: [facility] Address: [address] [place] [address] Performed By: #### 5 8410-2 ####[facility]ATORYCLIA [id number] [address] [place] MCH (RBC) [Entitic mass] 27.5 pg Normal 26.0-34.0 [facility] Comment on above: Order Comment: Speci men Type: BLOOD SPECIMENOrdering Facility: [facility] Address: [address] [place] [address] Performed By: #### 5 8410-2 ####[facility]ATORYCLIA [id number] [address] MCHC (RBC) [Mass/Vol] 28.7 g/dL Low 30.5-36.0 [facility] Comment on above: Order Comment: Speci men Type: BLOOD SPECIMENOrdering Facility: [facility] Address: [address] [place] [address] Performed By: #### 5 8410-2 ####[facility]ATORYCLIA [id number] [address] [place] MCV (RBC) [Entitic vol] 95.6 fL Normal 80.0-100.0 [facility] Comment on above: Order Comment: Speci men Type: BLOOD SPECIMENOrdering Facility: [facility] Address: [address] [place] [address] Performed By: #### 5 8410-2 ####[facility]ATORYCLIA [id number] [address] Nucleated RBC (Bld) [#/Vol] 10*3/uL Normal <0.01 [facility] Comment on above: Order Comment: Speci men Type: BLOOD SPECIMENOrdering Facility: [facility] Address: [address] [place] [address] Performed By: #### 5 8410-2 ####[facility]ATORYCLIA [id number] [address] Platelet mean volume (Bld) [Entitic vol] 11.9 fL Normal 9.0-12.7 [facility] Comment on above: Order Comment: Speci men Type: BLOOD SPECIMENOrdering Facility: [facility] Address: [address] [place] [address] Performed By: #### 5 8410-2 ####[facility]ATORYCLIA [id number] [address] [facility] Platelets (Bld) [#/Vol] 246 10*3/uL Normal 150-400 [facility] Comment on above: Order Comment: Speci men Type: BLOOD SPECIMENOrdering Facility: [facility] Address: [address] [place] [address] Performed By: #### 5 8410-2 ####[facility]ORYCLIA [id number] [address] RBC (Bld) [#/Vol] 3.64 10*6/uL Low 4.20-6.00 [facility] Comment on above: Order Comment: Speci men Type: BLOOD SPECIMENOrdering Facility: [facility] Address: [address] [place] [address] Performed By: #### 5 8410-2 ####[facility]ORYCLIA [id number] [address] WBC (Bld) [#/Vol] 11.45 10*3/uL High 3.70-11.00 [facility] Comment on above: Order Comment: Speci men Type: BLOOD SPECIMENOrdering Facility: [facility] Address: [address] [place] [address] Performed By: #### 5 8410-2 ####[facility]ORYCLIA [id number] [address] Erythrocyte distribution width (RBC) [Ratio] 15.9 % High 11.5-15.0 [facility] Comment on above: Order Comment: Speci men Type: BLOOD SPECIMEN Performed By: #### 5 8410-2 ####[facility]ORYCLIA [id number] [address] Hematocrit (Bld) [Volume fraction] 35.8 % Low 39.0-51.0 [facility] Comment on above: Order Comment: Speci men Type: BLOOD SPECIMEN Performed By: #### 5 8410-2 ####[facility]ORYCLIA [id number] [address] Hemoglobin (Bld) [Mass/Vol] 10.4 g/dL Low 13.0-17.0 [facility] Comment on above: Order Comment: Speci men Type: BLOOD SPECIMEN Performed By: #### 5 8410-2 ####[facility]ORYCLIA [id number] [address] MCH (RBC) [Entitic mass] 28.0 pg Normal 26.0-34.0 [facility] Comment on above: Order Comment: Speci men Type: BLOOD SPECIMEN Performed By: #### 5 8410-2 ####[facility]ORYCLIA [id number] [address] MCHC (RBC) [Mass/Vol] 29.1 g/dL Low 30.5-36.0 [facility] Comment on above: Order Comment: Speci men Type: BLOOD SPECIMEN Performed By: #### 5 8410-2 ####[facility]ORYCLIA [id number] [address] MCV (RBC) [Entitic vol] 96.2 fL Normal 80.0-100.0 [facility] Comment on above: Order Comment: Speci men Type: BLOOD SPECIMEN Performed By: #### 5 8410-2 ####[facility]ORYCLIA [id number] [address] Nucleated RBC (Bld) [#/Vol] 10*3/uL Normal <0.01 [facility] Comment on above: Order Comment: Speci men Type: BLOOD SPECIMEN Performed By: #### 5 8410-2 ####[facility]ORYCLIA [id number] [address] Platelet mean volume (Bld) [Entitic vol] 11.6 fL Normal 9.0-12.7 [facility] Comment on above: Order Comment: Speci men Type: BLOOD SPECIMEN Performed By: #### 5 8410-2 ####[facility]ORATORYCLIA [id number] [place] [address] [facility] Platelets (Bld) [#/Vol] 265 10*3/uL Normal 150-400 [facility] Comment on above: Order Comment: Speci men Type: BLOOD SPECIMEN Performed By: #### 5 8410-2 ####[facility]ATORYCLIA [id number] [place] [id number] [facility] RBC (Bld) [#/Vol] 3.72 10*6/uL Low 4.20-6.00 [facility] Comment on above: Order Comment: Speci men Type: BLOOD SPECIMEN Performed By: #### 5 8410-2 ####[facility]ORYCLIA [id number] [address] WBC (Bld) [#/Vol] 12.24 10*3/uL High 3.70-11.00 [facility] Comment on above: Order Comment: Speci men Type: BLOOD SPECIMEN Performed By: #### 5 8410-2 ####[facility]ATORYCLIA [id number] [address] CONSULTon 06-15-2021 CONSULT Normal [facility] CONSULT Normal [facility] CONSULT Normal [facility] CT BRAIN WO IVCONon 06-15-19 CT BRAIN WO IVCON Normal [facility] CT CHEST W IVCON PEon 2021 CT CHEST W IVCON PE Invalid Interpretation Code [facility] Chloride Unsp time (U) [Mole s/Vol]on 06-15-2021 Chloride (U) [Moles/Vol] 28 mmol/L Normal 16-250 [facility] Comment on above: Order Comment: Speci men Type: URINE SPECIMENOrdering Facility: [facility] Address: [address] [place] [address] Performed By: #### U TPR, 52054-4, 67711-7, 67617-1 ####[facility]ATORYCLIA [id number] [address] Comprehensive metabolic 2000 panelon 06-15-2021 Albumin [Mass/Vol] 2.8 g/dL Low 3.9-4.9 [facility] Comment on above: Order Comment: Speci men Type: BLOOD SPECIMENOrdering Facility: [facility] Address: [address] [place] [address] Performed By: #### 2 4323-8 ####[facility]ORYCLIA [id number] [address] [place] ALP [Catalytic activity/Vol] 74 U/L Normal 38-113 [facility] Comment on above: Order Comment: Speci men Type: BLOOD SPECIMENOrdering Facility: [facility] Address: [address] [place] [address] Performed By: #### 2 4323-8 ####[facility]ATORYCLIA [id number] [address] ALT With P-5'-P [Catalytic activity/Vol] 50 U/L Normal 10-54 [facility] Comment on above: Order Comment: Speci men Type: BLOOD SPECIMENOrdering Facility: [facility] Address: [address] [place] [address] Performed By: #### 2 4323-8 ####[facility]ORYCLIA [id number] [address] Anion gap [Moles/Vol] 12 mmol/L Normal 9-18 [facility] Comment on above: Order Comment: Speci men Type: BLOOD SPECIMENOrdering Facility: [facility] Address: [address] [place] [address] Performed By: #### 2 4323-8 ####[facility]ATORYCLIA [id number] [address] [place] AST With P-5'-P [Catalytic activity/Vol] 36 U/L Normal 14-40 [facility] Comment on above: Order Comment: Speci men Type: BLOOD SPECIMENOrdering Facility: [facility] Address: [address] [place] [address] Performed By: #### 2 4323-8 ####[facility]ORYCLIA [id number] [place] [address] [place] Bilirubin [Mass/Vol] 0.5 mg/dL Normal 0.2-1.3 [facility] Comment on above: Order Comment: Speci men Type: BLOOD SPECIMENOrdering Facility: [facility] Address: [address] [place] [address] Performed By: #### 2 4323-8 ####[facility]ORATORYCLIA [id number] [place] [address] [place] Calcium [Mass/Vol] 8.8 mg/dL Normal 8.5-10.2 [facility] Comment on above: Order Comment: Speci men Type: BLOOD SPECIMENOrdering Facility: [facility] Address: [address] [place] [address] Performed By: #### 2 4323-8 ####[facility]ATORYCLIA [id number] [place] [address] [place] Chloride [Moles/Vol] 126 mmol/L High 97-105 [facility] Comment on above: Order Comment: Speci men Type: BLOOD SPECIMENOrdering Facility: [facility] Address: [address] [place] [address] Performed By: #### 2 4323-8 ####[facility]ATORYCLIA [id number] [place] [address] [place] CO2 [Moles/Vol] 24 mmol/L Normal 22-30 [facility] Comment on above: Order Comment: Speci men Type: BLOOD SPECIMENOrdering Facility: [facility] Address: [address] [place] [address] Performed By: #### 2 4323-8 ####[facility]ORATORYCLIA [id number] [address] [place] Creatinine [Mass/Vol] 0.84 mg/dL Normal 0.73-1.22 [facility] Comment on above: Order Comment: Speci men Type: BLOOD SPECIMENOrdering Facility: [facility] Address: [address] [phone] Performed By: #### 2 4323-8 ####[facility] LABORATORYCLIA [id number] [place] [address] [place] GFR/1.73 sq M.predicted MDRD (S/P/Bld) [Vol rate/Area] mL/min/{1.73_m2} Normal [facility] Comment on above: Order Comment: Shira feldman Type: BLOOD SPECIMENOrdering Facility: [facility] Address: [address] [place], [place] [phone] Result Comment: >60e GFR (Estimated GFR) Units [...] actual GFR. Performed By: #### 2 4323-8 ####[facility] LABORATORYCLIA [id number] [place] [address] [place] Glucose [Mass/Vol] 142 mg/dL High 74-99 [facility] Comment on above: Order Comment: Shira feldman Type: BLOOD SPECIMENOrdering Facility: [facility] Address: [address] [phone] Result Comment: The [place] [employer] (ADA) provides guidance for cutoff [...] Standards of Medical Care in Diabetes 2016, [place] [employer]. Diabetes Care. 2016.39(Suppl 1). Performed By: #### 2 4323-8 ####[facility] LABORATORYCLIA [id number] [place] [address] [place] Potassium [Moles/Vol] 3.8 mmol/L Normal 3.7-5.1 [facility] Comment on above: Order Comment: Speci men Type: BLOOD SPECIMENOrdering Facility: [facility] Address: [address] [place] [address] Performed By: #### 2 4323-8 ####[facility] LABORATORYCLIA [id number] [place] [address] [place] Protein [Mass/Vol] 6.1 g/dL Low 6.3-8.0 [facility] Comment on above: Order Comment: Speci men Type: BLOOD SPECIMENOrdering Facility: [facility] Address: [address] [place] [address] Performed By: #### 2 4323-8 ####[facility] LABORATORYCLIA [id number] [address] [place] Sodium [Moles/Vol] 162 mmol/L High 136-144 [facility] Comment on above: Order Comment: Speci men Type: BLOOD SPECIMENOrdering Facility: [facility] Address: [address] [place] [address] Performed By: #### 2 4323-8 ####[facility] LABORATORYCLIA [id number] [place] [address] [place] Urea nitrogen [Mass/Vol] 33 mg/dL High 9-24 [facility] Comment on above: Order Comment: Speci men Type: BLOOD SPECIMENOrdering Facility: [facility] Address: [address] [place] [address] Performed By: #### 2 4323-8 ####[facility] LABORATORYCLIA [id number] [place] [address] [place] Creatinine Unsp time (U) [Ma ss/Vol]on 06-15-2021 Creatinine (U) [Mass/Vol] 87.0 mg/dL Normal 46.8-314.5 [facility] Comment on above: Order Comment: Speci men Type: URINE SPECIMENOrdering Facility: [facility] Address: [address] [place] [address] Performed By: #### U TPR, 55263-1, 43352-0, 65747-5 ####[facility] LABORATORYCLIA [id number] [address] [place] HIGH SENSITIVITY TROPONIN To n 06-15-2021 HIGH SENSITIVITY TAMIKO 23 ng/L High <12 [facility] Comment on above: Order Comment: Speci men Type: BLOOD SPECIMENOrdering Facility: [facility] Address: [address] [place] [address] Result Comment: When assessing risk for acute [...] day MACE. Performed By: #### P JULIANNE, 05126-3, HSTNT ####[facility] HOSPITALCLIA [id number] [place] [address] [place] Lactate (Bld) [Moles/Vol]on 06-15-2021 Lactate [Moles/Vol] 0.8 mmol/L Normal 0.5-2.2 [facility] Comment on above: Order Comment: Speci men Type: BLOOD SPECIMENOrdering Facility: [facility] Address: [address] [place] [address] Performed By: #### 3 2693-4 ####[facility] LABORATORYCLIA [id number] [place] [address] [place] Magnesium SerPl-mCncon 06-15 Magnesium [Mass/Vol] 3.0 mg/dL High 1.7-2.3 [facility] Comment on above: Order Comment: Speci men Type: BLOOD SPECIMEN Performed By: #### 2 4321-2, 2777-1, 14135-5 ####[facility] LABORATORYCLIA [id number] [address] NT-proBNP SerPl-mCncon 06-15 Natriuretic peptide.B prohormone N-Terminal [Mass/Vol] 265 pg/mL High <125 [facility] Comment on above: Order Comment: Speci men Type: BLOOD SPECIMENOrdering Facility: [facility] Address: [address] [place] [address] Performed By: #### P JULIANNE, 84855-1, HSTNT ####[facility] LABORATORYCLIA [id number] [address] Osmolality Uron 06-15-2021 Osmolality (U) [Osmolality] 606 mosm/kg Normal 50-1,200 [facility] Comment on above: Order Comment: Speci men Type: URINE SPECIMENOrdering Facility: [facility] Address: [address] [place] [address] Performed By: #### 2 695-5 ####[facility] LABORATORYCLIA [id number] [address] PROCALCITONIN (LAB)on 2021 Procalcitonin [Mass/Vol] 0.21 ng/mL High <0.09 [facility] Comment on above: Order Comment: Speci men Type: BLOOD SPECIMENOrdering Facility: [facility] Address: [address] [place] [address] Result Comment: For a guided interpretation of test results, please visit the Change in Procalcitonin Calculator, [email or web address]. Performed By: #### Edward WHITAKER, 2951-2 ####[facility] LABORATORYCLIA [id number] [address] STATES [facility] Procalcitonin [Mass/Vol] 0.17 ng/mL High <0.09 [facility] Comment on above: Order Comment: Speci men Type: BLOOD SPECIMENOrdering Facility: [facility] Address: [address] [place] [address] Result Comment: For a guided interpretation of test results, please visit the Change in Procalcitonin Calculator, [email or web address]. Performed By: #### P ROCAL, 84419-3, HSTNT ####[facility] LABORATORYCLIA [id number] [place] [id number] [facility] PROTEIN RANDOM URon 06-15-19 22 Protein (U) [Mass/Vol] 175 mg/dL High 0-20 [place] Comment on above: Order Comment: Speci men Type: URINE SPECIMENOrdering Facility: [facility] Address: [address] [place] [address] Performed By: #### U TPR, 39192-3, 54198-6, 49025-8 ####[facility] LABORATORYCLIA [id number] [address] PT panel Coag (PPP)on 2021 INR Coag (PPP) [Relative time] 1.1 {INR} Normal <1.4 [facility] Comment on above: Order Comment: Speci francia Type: BLOOD SPECIMENOrdering Facility: [facility] Address: [address] [place] [address] Result Comment: Yris min K Antagonist (VKA) Therapeutic Range: INR 2 to 3 (Target INR of 2.5)Note: For patients treated with VKA drugs, such as warfarin, the [employer] 2012 Guideline recommends [...] of 2.5 to 3.5 (target INR of 3).Guyatt GH, et al. Chest 2012, 141:7S-47SNishimura RA, et al. [facility] 2017, 70: 252-289 Performed By: #### 3 4528-0, 38185-6 ####[facility] LABORATORYCLIA [id number] [place] [address] [place] PT Coag (PPP) [Time] 11.4 s Normal <13.1 [facility] Comment on above: Order Comment: Speci men Type: BLOOD SPECIMENOrdering Facility: [facility] Address: [address] [place] [address] Performed By: #### 3 4528-0, 07639-2 ####[facility] LABORATORYCLIA [id number] [address] [place] Phosphate SerPl-mCncon 06-15 Phosphate [Mass/Vol] 2.6 mg/dL Low 2.7-4.8 [facility] Comment on above: Order Comment: Speci men Type: BLOOD SPECIMEN Performed By: #### 2 4321-2, 2777-1, 38201-1 ####[facility] LABORATORYCLIA [id number] [address] [place] Sodium ?Tm Ur-sCncon 022 Sodium Unsp time (U) [Moles/Vol] 34 mmol/L Normal 14-216 [facility] Comment on above: Order Comment: Speci men Type: URINE SPECIMENOrdering Facility: [facility] Address: [address] [place] [address] Performed By: #### U TPR, 28709-6, 46763-1, 81395-9 ####[facility] LABORATORYCLIA [id number] [address] OF [facility] Sodium SerPl-sCncon 06-15-19 22 Sodium [Moles/Vol] 159 mmol/L High 136-144 [facility] Comment on above: Order Comment: Speci men Type: BLOOD SPECIMENOrdering Facility: [facility] Address: [address] [place] [address] Performed By: #### P ROCAL, 2951-2 ####[facility]ORATORYCLIA [id number] [address] THERAPY NTon 06-15-2021 THERAPY NT Normal [facility] Urinalysis complete panel (U )on 06-15-2021 Bacteria LM.HPF (Urine sed) [#/Area] None Seen Normal None Seen [facility] Comment on above: Order Comment: Speci men Type: URINE SPECIMENOrdering Facility: [facility] Address: [address] [place] [address] Performed By: #### 2 4356-8 ####[facility] HOSPITALCLIA [id number] [address] Bilirubin Ql (U) Negative Normal Negative [facility] Comment on above: Order Comment: Speci men Type: URINE SPECIMENOrdering Facility: [facility] Address: [address] [place] [address] Performed By: #### 2 4356-8 ####[facility]ISIA [id number] [address] Clarity (Unsp spec) Cloudy Abnormal Clear [facility] Comment on above: Order Comment: Speci men Type: URINE SPECIMENOrdering Facility: [facility] Address: [address] [place] [address] Performed By: #### 2 4356-8 ####[facility] HOSPITALCLIA [id number] [address] Color (U) Yellow Normal Yellow [facility] Comment on above: Order Comment: Speci men Type: URINE SPECIMENOrdering Facility: [facility] Address: [address] [place] [address] Performed By: #### 2 4356-8 ####[facility] LABORATORYCLIA [id number] [address] Epithelial cells LM.HPF (Urine sed) [#/Area] 7.1 /[HPF] Normal [facility] Comment on above: Order Comment: Speci men Type: URINE SPECIMENOrdering Facility: [facility] Address: [address] [place] [address] Performed By: #### 2 4356-8 ####[facility]ORATORYCLIA [id number] [address] Glucose Test strip (U) [Mass/Vol] Negative Normal Negative [facility] Comment on above: Order Comment: Speci men Type: URINE SPECIMENOrdering Facility: [facility] Address: [address] [place] [address] Performed By: #### 2 4356-8 ####[facility] LABORATORYCLIA [id number] [address] Granular casts (Urine sed) [#/Area] /[LPF] Abnormal 0 /LPF [facility] Comment on above: Order Comment: Speci men Type: URINE SPECIMENOrdering Facility: [facility] Address: [address] [place] [address] Performed By: #### 2 4356-8 ####[facility] LABORATORYCLIA [id number] [address] STATES [facility] Hemoglobin Ql (U) Moderate Abnormal Negative [facility] Comment on above: Order Comment: Speci men Type: URINE SPECIMENOrdering Facility: [facility] Address: [address] [place] [address] Performed By: #### 2 4356-8 ####[facility]ATORYCLIA [id number] [address] Hyaline casts (Urine sed) [#/Area] /[LPF] Abnormal 0 /LPF [facility] Comment on above: Order Comment: Speci men Type: URINE SPECIMENOrdering Facility: [facility] Address: [address] [place] [address] Performed By: #### 2 4356-8 ####[facility]ATORYCLIA [id number] [address] [place] Ketones Ql (U) Negative Normal Negative [facility] Comment on above: Order Comment: Speci men Type: URINE SPECIMENOrdering Facility: [facility] Address: [address] [place] [address] Performed By: #### 2 4356-8 ####[facility]ORATORYCLIA [id number] [address] Leukocyte esterase Test strip Ql (U) Negative Normal Negative [facility] Comment on above: Order Comment: Speci men Type: URINE SPECIMENOrdering Facility: [facility] Address: [address] [place] [address] Performed By: #### 2 4356-8 ####[facility]ORATORYCLIA [id number] [address] Nitrite Ql (U) Negative Normal Negative [facility] Comment on above: Order Comment: Speci men Type: URINE SPECIMENOrdering Facility: [facility] Address: [address] [place] [address] Performed By: #### 2 4356-8 ####[facility]ORATORYCLIA [id number] [address] pH (U) 6.0 [pH] Normal 5.0-8.0 [facility] Comment on above: Order Comment: Speci men Type: URINE SPECIMENOrdering Facility: [facility] Address: [address] [place] [address] Performed By: #### 2 4356-8 ####[facility]ORATORYCLIA [id number] [address] Protein (U) [Mass/Vol] 100 mg/dL Abnormal Negative [place] Comment on above: Order Comment: Speci men Type: URINE SPECIMENOrdering Facility: [facility] Address: [address] [place] [address] Performed By: #### 2 4356-8 ####[facility]ORATORYCLIA [id number] [address] [place] RBC LM.HPF (Urine sed) [#/Area] 0-3 /HPF Normal 0-3 /HPF [facility] Comment on above: Order Comment: Speci men Type: URINE SPECIMENOrdering Facility: [facility] Address: [address] [place] [address] Performed By: #### 2 4356-8 ####[facility]ORATORYCLIA [id number] [address] Specific gravity (U) [Rel density] 1.024 Normal 1.005-1.030 [facility] Comment on above: Order Comment: Speci men Type: URINE SPECIMENOrdering Facility: [facility] Address: [address] [place] [address] Performed By: #### 2 4356-8 ####[facility]ORATORYCLIA [id number] [address] Urobilinogen Ql (U) 0.2 EU/dL Normal 0.2-1.0 EU/dL [facility] Comment on above: Order Comment: Speci men Type: URINE SPECIMENOrdering Facility: [facility] Address: [address] [place] [address] Performed By: #### 2 4356-8 ####[facility]ORATORYCLIA [id number] [address] WBC LM.HPF (Urine sed) [#/Area] 0-5 /HPF Normal 0-5 /HPF [facility] Comment on above: Order Comment: Speci men Type: URINE SPECIMENOrdering Facility: [facility] Address: [address] [place] [address] Performed By: #### 2 4356-8 ####[facility] LABORATORYCLIA [id number] [address] [place] XR CHEST 1V FRONTALon 2021 XR CHEST 1V FRONTAL Normal [facility] XR CHEST 1V FRONTAL PORTon 0 06-15-2021 XR CHEST 1V FRONTAL PORT Normal [facility] XR CHEST 1V FRONTAL PORT Normal [facility] aPTT PPPon 06-15-2021 aPTT Coag (PPP) [Time] 30.9 s Normal 23.0-32.4 [place] Comment on above: Order Comment: Speci men Type: BLOOD SPECIMENOrdering Facility: [facility] Address: [place] [address] Performed By: #### 3 4528-0, 88999-2 ####[facility]ORATORYCLIA [id number] [place] [address] [place] Basic metabolic 2000 panelon 06-14-2021 Anion gap [Moles/Vol] 8 mmol/L Low 9-18 [facility] Comment on above: Order Comment: Speci men Type: BLOOD SPECIMEN Performed By: #### 2 4321-2, 2776-05, ####[facility]ATORYCLIA [id number] [address] [place] Calcium [Mass/Vol] 8.9 mg/dL Normal 8.5-10.2 [facility] Comment on above: Order Comment: Speci men Type: BLOOD SPECIMEN Performed By: #### 2 4321-2, 2776-05, ####[facility]ATORYCLIA [id number] [address] [place] Chloride [Moles/Vol] 121 mmol/L High 97-105 [facility] Comment on above: Order Comment: Speci men Type: BLOOD SPECIMEN Performed By: #### 2 4321-2, 2776-05, ####[facility]ORATORYCLIA [id number] [place] [address] [place] CO2 [Moles/Vol] 30 mmol/L Normal 22-30 [facility] Comment on above: Order Comment: Speci men Type: BLOOD SPECIMEN Performed By: #### 2 4321-2, 2776-05, ####[facility]ATORYCLIA [id number] [place] [address] [place] Creatinine [Mass/Vol] 0.78 mg/dL Normal 0.73-1.22 [facility] Comment on above: Order Comment: Speci men Type: BLOOD SPECIMEN Performed By: #### 2 4321-2, 2777-, ####[facility]ITALCLIA [id number] [place] [address] [place] GFR/1.73 sq M.predicted MDRD (S/P/Bld) [Vol rate/Area] mL/min/{1.73_m2} Normal [facility] Comment on above: Order [...] 2 4321-2, 2777-, ####[facility] [id number] [place] [address] [place] Glucose [Mass/Vol] 132 mg/dL High 74-99 [facility] Comment on above: Order Comment: [facility] Type: BLOOD SPECIMEN Result Comment: The [place] [employer] (ADA) provides guidance for cutoff [...] Standards of Medical Care in Diabetes 2016, [employer]. Diabetes Care. 2016.39(Suppl 1). Performed By: #### 2 4321-2, 2777, ####[facility]ORATORYCLIA [id number] [place], [place] [address] [place] [address] STATES OF [facility] Potassium [Moles/Vol] 3.7 mmol/L Normal 3.7-5.1 [facility] Comment on above: Order Comment: Speci men Type: BLOOD SPECIMEN Performed By: #### 2 4321-2, 2776-05, ####[facility]ORATORYCLIA [id number] [place], [place] [address] [place] [address] STATES [facility] Sodium [Moles/Vol] 159 mmol/L High 136-144 [facility] Comment on above: Order Comment: Speci men Type: BLOOD SPECIMEN Performed By: #### 2 4321-2, 2776-05, ####[facility]ORATORYCLIA [id number] [address] STATES OF [facility] Urea nitrogen [Mass/Vol] 35 mg/dL High 9-24 [facility] Comment on above: Order Comment: Speci men Type: BLOOD SPECIMEN Performed By: #### 2 4321-2, 2776-05, ####[facility]ORATORYCLIA [id number] [address] CASE MANAGEMon 06-14-2021 CASE MANAGEM Normal [facility] CBC panel Auto (Bld)on 06-14 Erythrocyte distribution width (RBC) [Ratio] 16.2 % High 11.5-15.0 [facility] Comment on above: Order Comment: Speci men Type: BLOOD SPECIMEN Performed By: #### 5 8410-2 ####[facility]ORATORYCLIA [id number] [address] STATES OF [facility] Hematocrit (Bld) [Volume fraction] 35.2 % Low 39.0-51.0 [facility] Comment on above: Order Comment: Speci men Type: BLOOD SPECIMEN Performed By: #### 5 8410-2 ####[facility]ATORYCLIA [id number] [address] Hemoglobin (Bld) [Mass/Vol] 10.1 g/dL Low 13.0-17.0 [facility] Comment on above: Order Comment: Speci men Type: BLOOD SPECIMEN Performed By: #### 5 8410-2 ####[facility]ORATORYCLIA [id number] [address] MCH (RBC) [Entitic mass] 27.2 pg Normal 26.0-34.0 [facility] Comment on above: Order Comment: Speci men Type: BLOOD SPECIMEN Performed By: #### 5 8410-2 ####[facility]ORATORYCLIA [id number] [address] MCHC (RBC) [Mass/Vol] 28.7 g/dL Low 30.5-36.0 [facility] Comment on above: Order Comment: Speci men Type: BLOOD SPECIMEN Performed By: #### 5 8410-2 ####[facility]ORATORYCLIA [id number] [address] MCV (RBC) [Entitic vol] 94.6 fL Normal 80.0-100.0 [facility] Comment on above: Order Comment: Speci men Type: BLOOD SPECIMEN Performed By: #### 5 8410-2 ####[facility]ORATORYCLIA [id number] [address] Nucleated RBC (Bld) [#/Vol] 10*3/uL Normal <0.01 [facility] Comment on above: Order Comment: Speci men Type: BLOOD SPECIMEN Performed By: #### 5 8410-2 ####[facility]ATORYCLIA [id number] [address] Platelet mean volume (Bld) [Entitic vol] 11.0 fL Normal 9.0-12.7 [facility] Comment on above: Order Comment: Speci men Type: BLOOD SPECIMEN Performed By: #### 5 8410-2 ####[facility]ATORYCLIA [id number] [address] Platelets (Bld) [#/Vol] 287 10*3/uL Normal 150-400 [facility] Comment on above: Order Comment: Speci men Type: BLOOD SPECIMEN Performed By: #### 5 8410-2 ####[facility]ATORYCLIA [id number] [address] RBC (Bld) [#/Vol] 3.72 10*6/uL Low 4.20-6.00 [facility] Comment on above: Order Comment: Speci men Type: BLOOD SPECIMEN Performed By: #### 5 8410-2 ####[facility]ATORYCLIA [id number] [address] WBC (Bld) [#/Vol] 12.23 10*3/uL High 3.70-11.00 [facility] Comment on above: Order Comment: Speci men Type: BLOOD SPECIMEN Performed By: #### 5 8410-2 ####[facility]ORATORYCLIA [id number] [address] Comprehensive metabolic 2000 panelon 06-14-2021 Albumin [Mass/Vol] 3.1 g/dL Low 3.9-4.9 [facility] Comment on above: Order Comment: Speci men Type: BLOOD SPECIMEN Performed By: #### 2 4323-8, HSTNT, 2776-05, ####[facility]ATORYCLIA [id number] [address] ALP [Catalytic activity/Vol] 72 U/L Normal 38-113 [facility] Comment on above: Order Comment: Speci men Type: BLOOD SPECIMEN Performed By: #### 2 4323-8, HSTNT, 2776-05, ####[facility]ATORYCLIA [id number] [address] ALT With P-5'-P [Catalytic activity/Vol] 57 U/L High 10-54 [facility] Comment on above: Order Comment: Speci men Type: BLOOD SPECIMEN Performed By: #### 2 4323-8, HSTNT, 2776-05, ####[facility]ORYCLIA [id number] [address] STATES [facility] Anion gap [Moles/Vol] 9 mmol/L Normal 9-18 [facility] Comment on above: Order Comment: Speci men Type: BLOOD SPECIMEN Performed By: #### 2 4323-8, HSTNT, 2776-05, ####[facility]ORYCLIA [id number] [address] STATES OF [facility] AST With P-5'-P [Catalytic activity/Vol] 33 U/L Normal 14-40 [facility] Comment on above: Order Comment: Speci men Type: BLOOD SPECIMEN Performed By: #### 2 4323-8, HSTNT, 2776-05, ####[facility]ORATORYCLIA [id number] [address] STATES OF [facility] Bilirubin [Mass/Vol] 0.5 mg/dL Normal 0.2-1.3 [facility] Comment on above: Order Comment: Speci men Type: BLOOD SPECIMEN Performed By: #### 2 4323-8, HSTNT, 2776-05, ####[facility]ORY[facility]IA [id number] [address] [place] [facility] Calcium [Mass/Vol] 8.8 mg/dL Normal 8.5-10.2 [facility] Comment on above: Order Comment: Speci men Type: BLOOD SPECIMEN Performed By: #### 2 4323-8, HSTNT, 2776-05, ####[facility]ORYCL[facility] [id number] [address] [place] Chloride [Moles/Vol] 124 mmol/L High 97-105 [facility] Comment on above: Order Comment: Speci men Type: BLOOD SPECIMEN Performed By: #### 2 4323-8, HSTNT, 2776-05, ####[facility]ATORYCLIA [id number] [place], [place] [id number] [place] [address] [place] [facility] CO2 [Moles/Vol] 29 mmol/L Normal 22-30 [facility] Comment on above: Order Comment: Speci men Type: BLOOD SPECIMEN Performed By: #### 2 4323-8, HSTNT, 2776-05, ####[facility]ORATORYCLIA [id number] [place] [address] [place] Creatinine [Mass/Vol] 0.73 mg/dL Normal 0.73-1.22 [facility] Comment on above: Order Comment: Speci men Type: BLOOD SPECIMEN Performed By: #### 2 4323-8, HSTNT, 2776-05, ####[facility] LABORATORYCLIA [id number] [address] [place] GFR/1.73 sq M.predicted MDRD (S/P/Bld) [Vol rate/Area] mL/min/{1.73_m2} Normal [facility] Comment on above: Order [...] Performed By: #### 2 4323-8, HSTNT, 2776-05, ####[facility] LABORATORYCLIA [id number] [place], [place] [address] [place] [address] STATES OF [facility] Glucose [Mass/Vol] 137 mg/dL High 74-99 [facility] Comment on above: Order Comment: Speci men Type: BLOOD SPECIMEN Result Comment: The [place] Diabetes [employer] (ADA) provides guidance for cutoff [...] Standards of Medical Care in Diabetes 2016, [place] [employer]. Diabetes Care. 2016.39(Suppl 1). Performed By: #### 2 4323-8, HSTNT, 2776-05, ####[facility] LABORATORYCLIA [id number] [place] [address] [place] Potassium [Moles/Vol] 3.6 mmol/L Low 3.7-5.1 [facility] Comment on above: Order Comment: Speci men Type: BLOOD SPECIMEN Performed By: #### 2 4323-8, HSTNT, 2776-05, ####[facility] LABORATORYCLIA [id number] [place] [address] [place] Protein [Mass/Vol] 5.9 g/dL Low 6.3-8.0 [facility] Comment on above: Order Comment: Speci men Type: BLOOD SPECIMEN Performed By: #### 2 4323-8, HSTNT, 2776-05, ####[facility] LABORATORYCLIA [id number] [place] [address] [place] Sodium [Moles/Vol] 162 mmol/L High 136-144 [facility] Comment on above: Order Comment: Speci men Type: BLOOD SPECIMEN Performed By: #### 2 4323-8, HSTNT, 2776-05, ####[facility]ORATORYCLIA [id number] [place] [address] [place] Urea nitrogen [Mass/Vol] 33 mg/dL High 9-24 [facility] Comment on above: Order Comment: Speci men Type: BLOOD SPECIMEN Performed By: #### 2 4323-8, HSTNT, ####[facility]ORATORYCLIA [id number] [address] HIGH SENSITIVITY TROPONIN To n 06-14-2021 HIGH SENSITIVITY TAMIKO 22 ng/L High <12 [facility] Comment on [...] day MACE. Performed By: #### H STNT ####[facility] LABORATORYCLIA [id number] [address] HIGH SENSITIVITY TAMIKO 22 ng/L High <12 [facility] Comment on [...] MACE. Performed By: #### 2 4323-8, HSTNT, ####[facility]ORATORYCLIA [id number] [address] Magnesium SerPl-mCncon 06-14 Magnesium [Mass/Vol] 2.9 mg/dL High 1.7-2.3 [facility] Comment on above: Order Comment: Speci men Type: BLOOD SPECIMEN Performed By: #### 2 4323-8, HSTNT, ####[facility]ORYCLIA [id number] [address] Magnesium [Mass/Vol] 3.0 mg/dL High 1.7-2.3 [facility] Comment on above: Order Comment: Speci men Type: BLOOD SPECIMEN Performed By: #### 2 4321-2, 2776-05, ####[facility]ORATORYCLIA [id number] [place], [place] [address] [place] [address] OF [facility] NURSING PROGon 06-14-2021 NURSING PROG Normal [facility] NUTRITIONon 06-14-2021 NUTRITION Normal [facility] Phosphate SerPl-mCncon 06-14 Phosphate [Mass/Vol] 2.4 mg/dL Low 2.7-4.8 [facility] Comment on above: Order Comment: Speci men Type: BLOOD SPECIMEN Performed By: #### 2 4323-8, HSTNT, 2776-05, ####[facility]ATORYCLIA [id number] [address] Phosphate [Mass/Vol] 3.2 mg/dL Normal 2.7-4.8 [facility] Comment on above: Order Comment: Speci men Type: BLOOD SPECIMEN Performed By: #### 2 4321-2, 2776-05, ####[facility]ORATORYCLIA [id number] [place], [place] [address] [place] [address] STATES OF [facility] THERAPY NTon 06-14-2021 THERAPY NT Normal [facility] THERAPY NT Normal [facility] THERAPY NT Normal [facility] US DVT LOWER BILon US DVT LOWER RAINER Normal [facility] ALLIED HEALTHon 06-13-2021 ALLIED HEALTH Normal [facility] Basic metabolic 2000 panelon 06-13-2021 Anion gap [Moles/Vol] 7 mmol/L Low 9-18 [facility] Comment on above: Order Comment: Speci men Type: BLOOD SPECIMEN Performed By: #### 2 4321-2, , 2776-05 ####[facility]ORYCLIA [id number] [address] [place] Calcium [Mass/Vol] 8.8 mg/dL Normal 8.5-10.2 [facility] Comment on above: Order Comment: Speci men Type: BLOOD SPECIMEN Performed By: #### 2 4321-2, , 2776-05 ####[facility]ORATORYCLIA [id number] [place], [place] [address] [place] [address] STATES OF [facility] Chloride [Moles/Vol] 120 mmol/L High 97-105 [facility] Comment on above: Order Comment: Speci men Type: BLOOD SPECIMEN Performed By: #### 2 4321-2, , 2776-05 ####[facility]ORATORYCLIA [id number] [place], [place] [address] [place] [address] [place] CO2 [Moles/Vol] 28 mmol/L Normal 22-30 [facility] Comment on above: Order Comment: Speci men Type: BLOOD SPECIMEN Performed By: #### 2 4321-2, , 2776-05 ####[facility]ORATORYCLIA [id number] [address] [place] Creatinine [Mass/Vol] 0.78 mg/dL Normal 0.73-1.22 [facility] Comment on above: Order Comment: Speci men Type: BLOOD SPECIMEN Performed By: #### 2 4321-2, , 2776-05 ####[facility]ATORYCLIA [id number] [address] [place] GFR/1.73 sq M.predicted MDRD (S/P/Bld) [Vol rate/Area] mL/min/{1.73_m2} Normal [facility] Comment on above: Order [...] Performed By: #### 2 4320-2, , 2776-05 ####[facility]ATORYCLIA [id number] [place] [address] [place] Glucose [Mass/Vol] 126 mg/dL High 74-99 [facility] Comment on above: Order Comment: Speci men Type: BLOOD SPECIMEN Result Comment: The [place] Diabetes Association (ADA) provides guidance for cutoff [...] Standards of Medical Care in Diabetes 2016, [place] [employer]. Diabetes Care. 2016.39(Suppl 1). Performed By: #### 2 4320-2, , 2776-05 ####[facility]ORATORYCLIA [id number] [place] [address] [place] Potassium [Moles/Vol] 3.6 mmol/L Low 3.7-5.1 [facility] Comment on above: Order Comment: Speci men Type: BLOOD SPECIMEN Performed By: #### 2 4320-2, , 2776-05 ####[facility]ORATORYCLIA [id number] [place] [address] [place] Sodium [Moles/Vol] 155 mmol/L High 136-144 [facility] Comment on above: Order Comment: Speci men Type: BLOOD SPECIMEN Performed By: #### 2 4321-2, , 2776-05 ####[facility]ORATORYCLIA [id number] [place] [address] [place] Urea nitrogen [Mass/Vol] 36 mg/dL High 9-24 [facility] Comment on above: Order Comment: Speci men Type: BLOOD SPECIMEN Performed By: #### 2 4321-2, , 2776-05 ####[facility]ATORYCLIA [id number] [place], [place] [address] [place] [address] OF [facility] Anion gap [Moles/Vol] 6 mmol/L Low 9-18 [facility] Comment on above: Order Comment: Speci men Type: BLOOD SPECIMEN Performed By: #### 2 4321-2, 2776-05, ####[facility]ORYCLIA [id number] [place], [place] [address] [place] [address] [place] Calcium [Mass/Vol] 6.5 mg/dL Low 8.5-10.2 [facility] Comment on above: Order Comment: Speci men Type: BLOOD SPECIMEN Performed By: #### 2 4321-2, 2776-05, ####[facility]ORATORYCLIA [id number] [address] STATES OF [facility] Chloride [Moles/Vol] 124 mmol/L High 97-105 [facility] Comment on above: Order Comment: Speci men Type: BLOOD SPECIMEN Performed By: #### 2 4321-2, 2776-05, ####[facility]ORYCLIA [id number] [place], [place] [address] [place] [address] [place] CO2 [Moles/Vol] 24 mmol/L Normal 22-30 [facility] Comment on above: Order Comment: Speci men Type: BLOOD SPECIMEN Performed By: #### 2 4321-2, 2776-05, ####[facility]ORYCLIA [id number] [place], [place] [address] [place] [address] [place] Creatinine [Mass/Vol] 0.61 mg/dL Low 0.73-1.22 [facility] Comment on above: Order Comment: Speci men Type: BLOOD SPECIMEN Performed By: #### 2 4321-2, 2776-05, ####[facility]ATORYCLIA [id number] [place] [address] [place] GFR/1.73 sq M.predicted MDRD (S/P/Bld) [Vol rate/Area] mL/min/{1.73_m2} Normal [facility] Comment on above: Order [...] GFR. Performed By: #### 2 4321-2, 2777-1, 13576-9 ####[facility]ORATORYCLIA [id number] [place] [address] [place] Glucose [Mass/Vol] 100 mg/dL High 74-99 [facility] Comment on above: Order Comment: Speci men Type: BLOOD SPECIMEN Result Comment: The [place] Diabetes [employer] (ADA) provides guidance for cutoff [...] Standards of Medical Care in Diabetes 2016, [place] [employer]. Diabetes Care. 2016.39(Suppl 1). Performed By: #### 2 4321-2, 2777-1, 63022-7 ####[facility]ORATORYCLIA [id number] [place] [address] [place] Potassium [Moles/Vol] 2.7 mmol/L Low 3.7-5.1 [facility] Comment on above: Order Comment: Speci men Type: BLOOD SPECIMEN Performed By: #### 2 4321-2, 2776-, ####[facility]ORATORYCLIA [id number] [address] Sodium [Moles/Vol] 154 mmol/L High 136-144 [facility] Comment on above: Order Comment: Speci men Type: BLOOD SPECIMEN Performed By: #### 2 4321-2, 2776-, ####[facility]ORATORYCLIA [id number] [address] Urea nitrogen [Mass/Vol] 29 mg/dL High 9-24 [facility] Comment on above: Order Comment: Speci men Type: BLOOD SPECIMEN Performed By: #### 2 4321-2, 2776-05, ####[facility]ORATORYCLIA [id number] [address] CASE MANAGEMon 06-13-2021 CASE MANAGEM Normal [facility] CBC panel Auto (Bld)on 06-13 Erythrocyte distribution width (RBC) [Ratio] 15.9 % High 11.5-15.0 [facility] Comment on above: Order Comment: Speci men Type: BLOOD SPECIMEN Performed By: #### 5 8410-2 ####[facility]ORYCLIA [id number] [address] Hematocrit (Bld) [Volume fraction] 34.3 % Low 39.0-51.0 [facility] Comment on above: Order Comment: Speci men Type: BLOOD SPECIMEN Performed By: #### 5 8410-2 ####[facility]ORYCLIA [id number] [address] Hemoglobin (Bld) [Mass/Vol] 9.9 g/dL Low 13.0-17.0 [facility] Comment on above: Order Comment: Speci men Type: BLOOD SPECIMEN Performed By: #### 5 8410-2 ####[facility]ORATORYCLIA [id number] [address] MCH (RBC) [Entitic mass] 27.3 pg Normal 26.0-34.0 [facility] Comment on above: Order Comment: Speci men Type: BLOOD SPECIMEN Performed By: #### 5 8410-2 ####[facility]ATORYCLIA [id number] [address] MCHC (RBC) [Mass/Vol] 28.9 g/dL Low 30.5-36.0 [facility] Comment on above: Order Comment: Speci men Type: BLOOD SPECIMEN Performed By: #### 5 8410-2 ####[facility]ORATORYCLIA [id number] [address] MCV (RBC) [Entitic vol] 94.5 fL Normal 80.0-100.0 [facility] Comment on above: Order Comment: Speci men Type: BLOOD SPECIMEN Performed By: #### 5 8410-2 ####[facility]ATORYCLIA [id number] [address] Nucleated RBC (Bld) [#/Vol] 10*3/uL Normal <0.01 [facility] Comment on above: Order Comment: Speci men Type: BLOOD SPECIMEN Performed By: #### 5 8410-2 ####[facility]ATORYCLIA [id number] [address] Platelet mean volume (Bld) [Entitic vol] 11.3 fL Normal 9.0-12.7 [facility] Comment on above: Order Comment: Speci men Type: BLOOD SPECIMEN Performed By: #### 5 8410-2 ####[facility]ATORYCLIA [id number] [address] Platelets (Bld) [#/Vol] 269 10*3/uL Normal 150-400 [facility] Comment on above: Order Comment: Speci men Type: BLOOD SPECIMEN Performed By: #### 5 8410-2 ####[facility]ATORYCLIA [id number] [address] OF [facility] RBC (Bld) [#/Vol] 3.63 10*6/uL Low 4.20-6.00 [facility] Comment on above: Order Comment: Speci men Type: BLOOD SPECIMEN Performed By: #### 5 8410-2 ####[facility]ORYCLIA [id number] [address] WBC (Bld) [#/Vol] 12.77 10*3/uL High 3.70-11.00 [facility] Comment on above: Order Comment: Speci men Type: BLOOD SPECIMEN Performed By: #### 5 8410-2 ####[facility]ATORYCLIA [id number] [address] Gas and Carbon monoxide pane l (BldV)on 06-13-2021 Base excess Calc (BldV) [Moles/Vol] 5.7 mmol/L High 0-2 [facility] Comment on above: Order Comment: Speci men Type: VENOUS BLOOD SPECIMEN Performed By: #### 2 4344-4 ####[facility]ATORYCLIA [id number] [address] Body temperature 99.5 [degF] Normal [facility] Comment on above: Order Comment: Speci men Type: VENOUS BLOOD SPECIMEN Performed By: #### 2 4344-4 ####[facility]ATORYCLIA [id number] [address] CALCIUM IONIZED, PH CORRECTED 1.24 mmol/L Normal 1.08-1.30 [facility] Comment on above: Order Comment: Speci men Type: VENOUS BLOOD SPECIMEN Performed By: #### 2 4344-4 ####[facility]ORYCLIA [id number] [address] Calcium.ionized (BldV) [Mass/Vol] 1.23 mmol/L Normal 1.08-1.30 [facility] Comment on above: Order Comment: Speci men Type: VENOUS BLOOD SPECIMEN Performed By: #### 2 4344-4 ####[facility]ORYCLIA [id number] [address] Carboxyhemoglobin (BldV) [Mass fraction] 1.2 % Normal 0.0-2.0 [facility] Comment on above: Order Comment: Speci men Type: VENOUS BLOOD SPECIMEN Result Comment: Carb oxyhemoglobin Reference Range for Smokers: 2.0-8.0% Performed By: #### 2 4344-4 ####[facility]ORYCLIA [id number] [address] CO2 (BldV) [Partial pressure] 48 mm[Hg] Normal 42-55 [facility] Comment on above: Order Comment: Speci men Type: VENOUS BLOOD SPECIMEN Performed By: #### 2 4344-4 ####[facility]ORYCLIA [id number] [address] CO2 [Moles/Vol] 28.2 mmol/L Normal 25-29 [facility] Comment on above: Order Comment: Speci men Type: VENOUS BLOOD SPECIMEN Performed By: #### 2 4344-4 ####[facility]ORYCLIA [id number] [address] CO2 adjusted to patient's actual temperature (BldV) [Partial pressure] 49 mmHg Normal 42-55 [facility] Comment on above: Order Comment: Speci men Type: VENOUS BLOOD SPECIMEN Performed By: #### 2 4344-4 ####[facility]ORYCLIA [id number] [address] [place] Glucose [Mass/Vol] 131 mg/dL High 60-105 [facility] Comment on above: Order Comment: Speci men Type: VENOUS BLOOD SPECIMEN Performed By: #### 2 4344-4 ####[facility]ORYCLIA [id number] [address] OF [place] HCO3 (Bld) [Moles/Vol] 30.6 mmol/L High 24-28 [facility] Comment on above: Order Comment: Speci men Type: VENOUS BLOOD SPECIMEN Performed By: #### 2 4344-4 ####[facility]ORYCLIA [id number] [address] Hematocrit (Bld) [Volume fraction] 32.8 % Low 39.0-51.0 [facility] Comment on above: Order Comment: Speci men Type: VENOUS BLOOD SPECIMEN Performed By: #### 2 4344-4 ####[facility]ORYCLIA [id number] [address] Hemoglobin (Bld) [Mass/Vol] 10.6 g/dL Low 13.0-17.0 [facility] Comment on above: Order Comment: Speci men Type: VENOUS BLOOD SPECIMEN Performed By: #### 2 4344-4 ####[facility]ORYCLIA [id number] [address] LITERS 6 Liters/min Normal [facility] Comment on above: Order Comment: Speci men Type: VENOUS BLOOD SPECIMEN Performed By: #### 2 4344-4 ####[facility]ORYCLIA [id number] [address] Methemoglobin (Bld) [Mass fraction] 1.0 % Normal 0.0-1.5 [facility] Comment on above: Order Comment: Speci men Type: VENOUS BLOOD SPECIMEN Performed By: #### 2 4344-4 ####[facility]ORYCLIA [id number] [address] O2 THERAPY NC = Nasal Cannula Normal [facility] Comment on above: Order Comment: Speci men Type: VENOUS BLOOD SPECIMEN Performed By: #### 2 4344-4 ####[facility]ORYCLIA [id number] [address] Oxygen (BldV) [Partial pressure] 42 mm[Hg] Normal 35-45 [facility] Comment on above: Order Comment: Speci men Type: VENOUS BLOOD SPECIMEN Performed By: #### 2 4344-4 ####[facility]ORYCLIA [id number] [place], [place] [id number] [place] [address] Oxygen adjusted to patient's actual temperature (BldV) [Partial pressure] 43.8 mmHg Normal 35-45 [facility] Comment on above: Order Comment: Speci men Type: VENOUS BLOOD SPECIMEN Performed By: #### 2 4344-4 ####[facility]ORYCLIA [id number] [address] Oxygen saturation in Blood 76.7 % Normal 60-85 [facility] Comment on above: Order Comment: Speci men Type: VENOUS BLOOD SPECIMEN Performed By: #### 2 4344-4 ####[facility]ORYCLIA [id number] [address] Oxyhemoglobin (BldV) [Mass fraction] 75 % Normal 60-85 [facility] Comment on above: Order Comment: Speci men Type: VENOUS BLOOD SPECIMEN Performed By: #### 2 4344-4 ####[facility]ORYCLIA [id number] [address] STATES OF [facility] pH (BldV) 7.42 [pH] Normal 7.32-7.42 [facility] Comment on above: Order Comment: Speci men Type: VENOUS BLOOD SPECIMEN Performed By: #### 2 4344-4 ####[facility]ORYCLIA [id number] [address] STATES OF [facility] pH adjusted to patient's actual temperature (BldV) 7.41 Normal 7.32-7.42 [facility] Comment on above: Order Comment: Speci men Type: VENOUS BLOOD SPECIMEN Performed By: #### 2 4344-4 ####[facility]ORYCLIA [id number] [address] [place] Potassium [Moles/Vol] 3.5 mmol/L Normal 3.5-5.0 [facility] Comment on above: Order Comment: Speci men Type: VENOUS BLOOD SPECIMEN Performed By: #### 2 4344-4 ####[facility]ORYCLIA [id number] [place] [address] [place] OF [facility] Sodium [Moles/Vol] 157 mmol/L High 136-144 [facility] Comment on above: Order Comment: Speci men Type: VENOUS BLOOD SPECIMEN Performed By: #### 2 4344-4 ####[facility]ORYCLIA [id number] [place] [address] [place] Magnesium SerPl-mCncon 06-13 Magnesium [Mass/Vol] 3.0 mg/dL High 1.7-2.3 [facility] Comment on above: Order Comment: Speci men Type: BLOOD SPECIMEN Performed By: #### 2 4321-2, , 2776-05 ####[facility]ORYCLIA [id number] [place], [place] [address] [place] [address] [place] Magnesium [Mass/Vol] 2.2 mg/dL Normal 1.7-2.3 [facility] Comment on above: Order Comment: Speci men Type: BLOOD SPECIMEN Performed By: #### 2 4321-2, 2776-05, ####[facility]ORYCLIA [id number] [place], [place] [address] [place] [address] [place] Phosphate SerPl-mCncon 06-13 Phosphate [Mass/Vol] 2.2 mg/dL Low 2.7-4.8 [facility] Comment on above: Order Comment: Speci men Type: BLOOD SPECIMEN Performed By: #### 2 4321-2, , 2776-05 ####[facility]ORYCLIA [id number] [place] [address] [place] Phosphate [Mass/Vol] 1.8 mg/dL Low 2.7-4.8 [facility] Comment on above: Order Comment: Speci men Type: BLOOD SPECIMEN Performed By: #### 2 4321-2, 2776-05, ####[facility]ORYCLIA [id number] [place] [address] [place] XR CHEST 1V FRONTALon 2021 XR CHEST 1V FRONTAL Normal [facility] ALLIED HEALTHon 06-12-2021 ALLIED HEALTH Normal [facility] BRIEF OP NOTon 06-12-2021 BRIEF OP NOT Normal [facility] Bacteria Fld Culton 06-12-19 22 Bacteria identified Cx Nom (Body fld) CULTURE, BODY FLD: No growth 5 days GRAM STAIN: No organisms seen Moderate Polymorphonuclear leukocytes Normal [facility] Comment on above: Performed By: #### 6 11-4 ####[facility]ORATORYCLIA [id number] [place] [address] [place] Basic metabolic 2000 panelon 06-12-2021 Anion gap [Moles/Vol] 6 mmol/L Low 9-18 [facility] Comment on above: Order Comment: Speci men Type: BLOOD SPECIMEN Performed By: #### 2 777-1, 01142-1, ####[facility]ATORYCLIA [id number] [place] [address] [place] Calcium [Mass/Vol] 8.7 mg/dL Normal 8.5-10.2 [facility] Comment on above: Order Comment: Speci men Type: BLOOD SPECIMEN Performed By: #### 2 777-1, , ####[facility]ATORYCLIA [id number] [place] [address] [place] Chloride [Moles/Vol] 118 mmol/L High 97-105 [facility] Comment on above: Order Comment: Speci men Type: BLOOD SPECIMEN Performed By: #### 2 777-1, 06292-0, ####[facility]ORYCLIA [id number] [place] [address] [place] CO2 [Moles/Vol] 28 mmol/L Normal 22-30 [facility] Comment on above: Order Comment: Speci men Type: BLOOD SPECIMEN Performed By: #### 2 777-1, 39181-4, ####[facility]ORYCLIA [id number] [place] [address] [place] Creatinine [Mass/Vol] 0.77 mg/dL Normal 0.73-1.22 [facility] Comment on above: Order [facility]: [facility] BLOOD SPECIM[facility] Performed By: #### 2 777-1, 86962-9, 60396-8 ####[facility]ORYCLIA [id number] [address] [place] GFR/1.73 sq M.predicted MDRD (S/P/Bld) [Vol rate/Area] mL/min/{1.73_m2} Normal [facility] Comment on above: Order [...] actual GFR. Performed By: #### 2 777-1, 82930-2, 88300-8 ####[facility]ORATORYCLIA [id number] [place] [id number] [place] OF [facility] Glucose [Mass/Vol] 116 mg/dL High 74-99 [facility] Comment on above: Order Comment: [facility] Type[facility] BLOOD SPECIMEN Result Comment: The [place] [employer] (ADA) provides guidance for cutoff [...] Standards of Medical Care in Diabetes 2016, [place] [employer]. Diabetes Care. 2016.39(Suppl 1). Performed By: #### 2 777-1, 93930-1, ####[facility]ORYCLIA [id number] [address] Potassium [Moles/Vol] 4.0 mmol/L Normal 3.7-5.1 [facility] Comment on above: Order Comment: Speci men Type: BLOOD SPECIMEN Performed By: #### 2 777-1, 10859-2, ####[facility]ATORYCLIA [id number] [address] Sodium [Moles/Vol] 152 mmol/L High 136-144 [facility] Comment on above: Order Comment: Speci men Type: BLOOD SPECIMEN Performed By: #### 2 777-1, 01886-8, ####[facility]ORATORYCLIA [id number] [address] Urea nitrogen [Mass/Vol] 34 mg/dL High 9-24 [facility] Comment on above: Order Comment: Speci men Type: BLOOD SPECIMEN Performed By: #### 2 777-1, 13154-2, ####[facility] LABORATORYCLIA [id number] [address] CBC panel Auto (Bld)on 06-12 Erythrocyte distribution width (RBC) [Ratio] 16.1 % High 11.5-15.0 [facility] Comment on above: Order Comment: Speci men Type: BLOOD SPECIMEN Performed By: #### 5 8410-2 ####[facility] LABORATORYCLIA [id number] [address] Hematocrit (Bld) [Volume fraction] 32.8 % Low 39.0-51.0 [facility] Comment on above: Order Comment: Speci men Type: BLOOD SPECIMEN Performed By: #### 5 8410-2 ####[facility] [id number] [address] Hemoglobin (Bld) [Mass/Vol] 9.9 g/dL Low 13.0-17.0 [facility] Comment on above: Order Comment: Speci men Type: BLOOD SPECIMEN Performed By: #### 5 8410-2 ####[facility] LABORATORYCLIA [id number] [address] MCH (RBC) [Entitic mass] 28.4 pg Normal 26.0-34.0 [facility] Comment on above: Order Comment: Speci men Type: BLOOD SPECIMEN Performed By: #### 5 8410-2 ####[facility] LABORATORYCLIA [id number] [address] MCHC (RBC) [Mass/Vol] 30.2 g/dL Low 30.5-36.0 [facility] Comment on above: Order Comment: Speci men Type: BLOOD SPECIMEN Performed By: #### 5 8410-2 ####[facility]ORATORYCLIA [id number] [address] MCV (RBC) [Entitic vol] 94.3 fL Normal 80.0-100.0 [facility] Comment on above: Order Comment: Speci men Type: BLOOD SPECIMEN Performed By: #### 5 8410-2 ####[facility]ATORYCLIA [id number] [address] Nucleated RBC (Bld) [#/Vol] 10*3/uL Normal <0.01 [facility] Comment on above: Order Comment: Speci men Type: BLOOD SPECIMEN Performed By: #### 5 8410-2 ####[facility]ORATORYCLIA [id number] [address] Platelet mean volume (Bld) [Entitic vol] 11.2 fL Normal 9.0-12.7 [facility] Comment on above: Order Comment: Speci men Type: BLOOD SPECIMEN Performed By: #### 5 8410-2 ####[facility] LABORATORYCLIA [id number] [address] [place] Platelets (Bld) [#/Vol] 218 10*3/uL Normal 150-400 [facility] Comment on above: Order Comment: Speci men Type: BLOOD SPECIMEN Performed By: #### 5 8410-2 ####[facility]ATORYCLIA [id number] [address] RBC (Bld) [#/Vol] 3.48 10*6/uL Low 4.20-6.00 [facility] Comment on above: Order Comment: Speci men Type: BLOOD SPECIMEN Performed By: #### 5 8410-2 ####[facility]ATORYCLIA [id number] [address] WBC (Bld) [#/Vol] 13.33 10*3/uL High 3.70-11.00 [facility] Comment on above: Order Comment: Speci men Type: BLOOD SPECIMEN Performed By: #### 5 8410-2 ####[facility]ORATORYCLIA [id number] [address] CONSULT PROGon 06-12-2021 CONSULT PROG Normal [facility] CT DRN PLACE PERIT/RETROP [place] BIon 06-12-[address] PERIT/RETROP FL BI Normal [facility] HISTORY PHYSICALon HISTORY PHYSICAL Normal [facility] Magnesium SerPl-mCncon 06-12 Magnesium [Mass/Vol] 2.7 mg/dL High 1.7-2.3 [facility] Comment on above: Order Comment: Speci men Type: BLOOD SPECIMEN Performed By: #### 2 777-1, 29221-0, 97075-8 ####[facility]ATORYCLIA [id number] [address] PT panel Coag (PPP)on 2021 INR Coag (PPP) [Relative time] 1.1 {INR} Normal 0.9-1.3 [facility] Comment on above: Order Comment: Speci men Type: BLOOD SPECIMEN Result Comment: Yris min K Antagonist (VKA) Therapeutic Range: INR 2 to 3 (Target INR of 2.5)Note: For patients treated with VKA drugs, such as warfarin, the [employer] 2012 Guideline recommends [...] al. Chest 2012, 141:7S-47SAlba RA, et al. [facility] 2017, 70: 252-289 Performed By: #### 3 4528-0 ####[facility] LABORATORYCLIA [id number] [place] [address] [place] PT Coag (PPP) [Time] 11.9 s Normal 9.7-13.0 [facility] Comment on above: Order Comment: Speci men Type: BLOOD SPECIMEN Performed By: #### 3 4528-0 ####[facility]ORATORYCLIA [id number] [place] [address] [place] Phosphate SerPl-mCncon 06-12 Phosphate [Mass/Vol] 2.2 mg/dL Low 2.7-4.8 [facility] Comment on above: Order Comment: Speci men Type: BLOOD SPECIMEN Performed By: #### 2 777-1, 07520-5, 02007-5 ####[facility]ORATORYCLIA [id number] [place] [address] [place] XR ABDOMEN 1V SUPINEon 06-12 XR ABDOMEN 1V SUPINE Normal [facility] ALLIED HEALTHon 06-11-2021 ALLIED HEALTH Normal [facility] Bacteria Bld Culton 06-11-19 22 Bacteria identified Cx Nom (Bld) CULTURE, BLOOD: No growth 5 days Normal [facility] Comment on above: Performed By: #### 6 00-7 ####[facility]ORATORYCLIA [id number] [address] Bacteria identified Cx Nom (Bld) CULTURE, BLOOD: No growth 5 days Normal [facility] Comment on above: Performed By: #### 6 00-7 ####[facility]ORATORYCLIA [id number] [address] OF [place] Bacteria Ur Culton 2 Bacteria identified Cx Nom (U) CULTURE, URINE: No growth (<1,000 CFU/ml) Normal [facility] Comment on above: Performed By: #### 6 30-4 ####[facility]ORATORYCLIA [id number] [address] OF [facility] Basic metabolic 2000 panelon 06-11-2021 Anion gap [Moles/Vol] 9 mmol/L Normal 9-18 [facility] Comment on above: Order Comment: Speci men Type: BLOOD SPECIMEN Performed By: #### 1 9123-9, 2777-1, 52867-2 ####[facility]ORATORYCLIA [id number] [address] [place] Calcium [Mass/Vol] 8.5 mg/dL Normal 8.5-10.2 [facility] Comment on above: Order Comment: Speci men Type: BLOOD SPECIMEN Performed By: #### 1 9123-9, 277-, 46798-7 ####[facility]ORATORYCLIA [id number] [address] [place] Chloride [Moles/Vol] 118 mmol/L High 97-105 [facility] Comment on above: Order Comment: Speci men Type: BLOOD SPECIMEN Performed By: #### 1 9123-9, 2777-1, 40140-2 ####[facility]ATORYCLIA [id number] [place] [address] [place] CO2 [Moles/Vol] 27 mmol/L Normal 22-30 [facility] Comment on above: Order Comment: Speci men Type: BLOOD SPECIMEN Performed By: #### 1 9123-9, 2777-1, 82054-4 ####[facility]ORATORYCLIA [id number] [place] [id number] [place] [facility] Creatinine [Mass/Vol] 0.75 mg/dL Normal 0.73-1.22 [facility] Comment on above: Order Comment: Speci men Type: BLOOD SPECIMEN Performed By: #### 1 9123-9, 2777-, 96488-0 ####[facility]ATORYCLIA [id number] [address] [place] GFR/1.73 sq M.predicted MDRD (S/P/Bld) [Vol rate/Area] mL/min/{1.73_m2} Normal [facility] Comment on above: Order [...] GFR. Performed By: #### 1 9123-9, 2777-, 42398-3 ####[facility] H[facility]PITALCLIA [id number] [place] [address] [place] Glucose [Mass/Vol] 142 mg/dL High 74-99 [facility] Comment on above: Order Comment: Speci men Type: BLOOD SPECIMEN Result Comment: The [employer] (ADA) provides guidance for cutoff [...] Standards of Medical Care in Diabetes 2016, [employer]. Diabetes Care. 2016.39(Suppl 1). Performed By: #### 1 9123-9, 2777-1, 78197-0 ####[facility]ORATORYCLIA [id number] [address] Potassium [Moles/Vol] 3.6 mmol/L Low 3.7-5.1 [facility] Comment on above: Order Comment: Speci men Type: BLOOD SPECIMEN Performed By: #### 1 9123-9, 2776-05, 35132-6 ####[facility] HOSPITALCLIA [id number] [address] Sodium [Moles/Vol] 154 mmol/L High 136-144 [facility] Comment on above: Order Comment: Speci men Type: BLOOD SPECIMEN Performed By: #### 1 9123-9, 27711-04, 68911-9 ####[facility]ATORYCLIA [id number] [address] Urea nitrogen [Mass/Vol] 31 mg/dL High 9-24 [facility] Comment on above: Order Comment: Speci men Type: BLOOD SPECIMEN Performed By: #### 1 9123-9, 27711-04, 41346-2 ####[facility]ORATORYCLIA [id number] [address] C diff Tox gens Stl Ql MEGAN+p robeon 06-11-2021 C. difficile toxin genes MEGAN+probe Ql (Stl) Negative Normal Negative for C. difficile toxin by PCR [facility] Comment on above: Order Comment: Speci men Type: STOOL SPECIMEN Performed By: #### 5 4067-4 ####[facility]ORATORYCLIA [id number] [address] CBC W Auto Differential pane l (Bld)on 06-11-2021 Basophils (Bld) [#/Vol] 0.03 10*3/uL Normal <0.11 [facility] Comment on above: Order Comment: Speci men Type: BLOOD SPECIMEN Performed By: #### 5 7021-8 ####[facility]ATORYCLIA [id number] [address] Basophils/100 WBC (Bld) 0.2 % Normal [facility] Comment on above: Order Comment: Speci men Type: BLOOD SPECIMEN Performed By: #### 5 7021-8 ####[facility]ATORYCLIA [id number] [address] Differential cell count method Nom (Bld) Auto Normal [facility] Comment on above: Order Comment: Speci men Type: BLOOD SPECIMEN Performed By: #### 5 7021-8 ####[facility]ORYCLIA [id number] [address] Eosinophils (Bld) [#/Vol] 0.19 10*3/uL Normal <0.46 [facility] Comment on above: Order Comment: Speci men Type: BLOOD SPECIMEN Performed By: #### 5 7021-8 ####[facility]ORYCLIA [id number] [address] Eosinophils/100 WBC (Bld) 1.5 % Normal [facility] Comment on above: Order Comment: Speci men Type: BLOOD SPECIMEN Performed By: #### 5 7021-8 ####[facility]ORYCLIA [id number] [address] OF [facility] Erythrocyte distribution width (RBC) [Ratio] 16.3 % High 11.5-15.0 [facility] Comment on above: Order Comment: Speci men Type: BLOOD SPECIMEN Performed By: #### 5 7021-8 ####[facility]ORYCLIA [id number] [address] OF [place] Hematocrit (Bld) [Volume fraction] 32.1 % Low 39.0-51.0 [facility] Comment on above: Order Comment: Speci men Type: BLOOD SPECIMEN Performed By: #### 5 7021-8 ####[facility]ORATORYCLIA [id number] [address] Hemoglobin (Bld) [Mass/Vol] 9.3 g/dL Low 13.0-17.0 [facility] Comment on above: Order Comment: Speci men Type: BLOOD SPECIMEN Performed By: #### 5 7021-8 ####[facility]ATORYCLIA [id number] [address] IMMATURE GRAN % 0.6 % Normal [facility] Comment on above: Order Comment: Speci men Type: BLOOD SPECIMEN Performed By: #### 5 7021-8 ####[facility]ATORYCLIA [id number] [address] IMMATURE GRAN ABS 0.08 k/uL Normal <0.10 [facility] Comment on above: Order Comment: Speci men Type: BLOOD SPECIMEN Performed By: #### 5 7021-8 ####[facility]ATORYCLIA [id number] [address] Lymphocytes (Bld) [#/Vol] 1.65 10*3/uL Normal 1.00-4.00 [facility] Comment on above: Order Comment: Speci men Type: BLOOD SPECIMEN Performed By: #### 5 7021-8 ####[facility]ATORYCLIA [id number] [address] Lymphocytes/100 WBC (Bld) 12.8 % Normal [facility] Comment on above: Order Comment: Speci men Type: BLOOD SPECIMEN Performed By: #### 5 7021-8 ####[facility]ATORYCLIA [id number] [address] MCH (RBC) [Entitic mass] 27.2 pg Normal 26.0-34.0 [facility] Comment on above: Order Comment: Speci men Type: BLOOD SPECIMEN Performed By: #### 5 7021-8 ####[facility]ORYCLIA [id number] [address] MCHC (RBC) [Mass/Vol] 29.0 g/dL Low 30.5-36.0 [facility] Comment on above: Order Comment: Speci men Type: BLOOD SPECIMEN Performed By: #### 5 7021-8 ####[facility]ORYCLIA [id number] [address] MCV (RBC) [Entitic vol] 93.9 fL Normal 80.0-100.0 [facility] Comment on above: Order Comment: Speci men Type: BLOOD SPECIMEN Performed By: #### 5 7021-8 ####[facility]ORYCLIA [id number] [address] Monocytes (Bld) [#/Vol] 0.68 10*3/uL Normal <0.87 [facility] Comment on above: Order Comment: Speci men Type: BLOOD SPECIMEN Performed By: #### 5 7021-8 ####[facility]ATORYCLIA [id number] [address] Monocytes/100 WBC (Bld) 5.3 % Normal [facility] Comment on above: Order Comment: Speci men Type: BLOOD SPECIMEN Performed By: #### 5 7021-8 ####[facility]ORYCLIA [id number] [address] Neutrophils (Bld) [#/Vol] 10.22 10*3/uL High 1.45-7.50 [facility] Comment on above: Order Comment: Speci men Type: BLOOD SPECIMEN Performed By: #### 5 7021-8 ####[facility]ORYCLIA [id number] [address] Neutrophils/100 WBC (Bld) 79.6 % Normal [facility] Comment on above: Order Comment: Speci men Type: BLOOD SPECIMEN Performed By: #### 5 7021-8 ####[facility]ATORYCLIA [id number] [address] Nucleated RBC (Bld) [#/Vol] 10*3/uL Normal <0.01 [facility] Comment on above: Order Comment: Speci men Type: BLOOD SPECIMEN Performed By: #### 5 7021-8 ####[facility]ORYCLIA [id number] [address] Nucleated RBC/100 WBC (Bld) [Ratio] 0.0 /100 WBC Normal 0.0 [facility] Comment on above: Order Comment: Speci men Type: BLOOD SPECIMEN Performed By: #### 5 7021-8 ####[facility]ATORYCLIA [id number] [address] Platelet mean volume (Bld) [Entitic vol] 11.1 fL Normal 9.0-12.7 [facility] Comment on above: Order Comment: Speci men Type: BLOOD SPECIMEN Performed By: #### 5 7021-8 ####[facility]ATORYCLIA [id number] [address] Platelets (Bld) [#/Vol] 188 10*3/uL Normal 150-400 [facility] Comment on above: Order Comment: Speci men Type: BLOOD SPECIMEN Performed By: #### 5 7021-8 ####[facility]ATORYCLIA [id number] [address] RBC (Bld) [#/Vol] 3.42 10*6/uL Low 4.20-6.00 [facility] Comment on above: Order Comment: Speci men Type: BLOOD SPECIMEN Performed By: #### 5 7021-8 ####[facility]ATORYCLIA [id number] [address] WBC (Bld) [#/Vol] 12.85 10*3/uL High 3.70-11.00 [facility] Comment on above: Order Comment: Speci men Type: BLOOD SPECIMEN Performed By: #### 5 7021-8 ####[facility]ATORYCLIA [id number] [address] CBC panel Auto (Bld)on 06-11 Erythrocyte distribution width (RBC) [Ratio] 16.2 % High 11.5-15.0 [facility] Comment on above: Order Comment: Speci men Type: BLOOD SPECIMEN Performed By: #### 5 8410-2 ####[facility]ATORYCLIA [id number] [address] Hematocrit (Bld) [Volume fraction] 34.5 % Low 39.0-51.0 [facility] Comment on above: Order Comment: Speci men Type: BLOOD SPECIMEN Performed By: #### 5 8410-2 ####[facility]ATORYCLIA [id number] [address] Hemoglobin (Bld) [Mass/Vol] 10.3 g/dL Low 13.0-17.0 [facility] Comment on above: Order Comment: Speci men Type: BLOOD SPECIMEN Performed By: #### 5 8410-2 ####[facility]ATORYCLIA [id number] [address] MCH (RBC) [Entitic mass] 28.1 pg Normal 26.0-34.0 [facility] Comment on above: Order Comment: Speci men Type: BLOOD SPECIMEN Performed By: #### 5 8410-2 ####[facility]ORYCLIA [id number] [address] MCHC (RBC) [Mass/Vol] 29.9 g/dL Low 30.5-36.0 [facility] Comment on above: Order Comment: Speci men Type: BLOOD SPECIMEN Performed By: #### 5 8410-2 ####[facility]ORYCLIA [id number] [address] MCV (RBC) [Entitic vol] 94.3 fL Normal 80.0-100.0 [facility] Comment on above: Order Comment: Speci men Type: BLOOD SPECIMEN Performed By: #### 5 8410-2 ####[facility]ORYCLIA [id number] [address] Nucleated RBC (Bld) [#/Vol] 10*3/uL Normal <0.01 [facility] Comment on above: Order Comment: Speci men Type: BLOOD SPECIMEN Performed By: #### 5 8410-2 ####[facility]ORYCLIA [id number] [address] Platelet mean volume (Bld) [Entitic vol] 10.9 fL Normal 9.0-12.7 [facility] Comment on above: Order Comment: Speci men Type: BLOOD SPECIMEN Performed By: #### 5 8410-2 ####[facility]ORYCLIA [id number] [address] Platelets (Bld) [#/Vol] 210 10*3/uL Normal 150-400 [facility] Comment on above: Order Comment: Speci men Type: BLOOD SPECIMEN Performed By: #### 5 8410-2 ####[facility]ORYCLIA [id number] [address] RBC (Bld) [#/Vol] 3.66 10*6/uL Low 4.20-6.00 [facility] Comment on above: Order Comment: Speci men Type: BLOOD SPECIMEN Performed By: #### 5 8410-2 ####[facility]ORYCLIA [id number] [address] WBC (Bld) [#/Vol] 13.03 10*3/uL High 3.70-11.00 [facility] Comment on above: Order Comment: Speci men Type: BLOOD SPECIMEN Performed By: #### 5 8410-2 ####[facility]ORYCLIA [id number] [address] CONSULT PROGon 06-11-2021 CONSULT PROG Normal [facility] CONSULT PROG Normal [facility] CONSULT PROG Normal [facility] CT ABD/PEL W IVCONon 022 CT ABD/PEL W IVCON Invalid Interpretation Code [facility] Magnesium SerPl-mCncon 06-11 Magnesium [Mass/Vol] 2.7 mg/dL High 1.7-2.3 [facility] Comment on above: Order Comment: Speci men Type: BLOOD SPECIMEN Performed By: #### 1 9123-9, 2777-1, 91965-4 ####[facility]ORYCLIA [id number] [address] STATES OF [facility] Phosphate SerPl-mCncon 06-11 Phosphate [Mass/Vol] 2.5 mg/dL Low 2.7-4.8 [facility] Comment on above: Order Comment: Speci men Type: BLOOD SPECIMEN Performed By: #### 1 9123-9, 2776-05, 93337-8 ####[facility]ORYCLIA [id number] [address] [place] Basic metabolic 2000 panelon 06-10-2021 Anion gap [Moles/Vol] 7 mmol/L Low 9-18 [facility] Comment on above: Order Comment: Speci men Type: BLOOD SPECIMEN Performed By: #### 2 777-1, 19791-3, , HFP ####[facility]ORYCLIA [id number] [place] [address] [place] Calcium [Mass/Vol] 8.5 mg/dL Normal 8.5-10.2 [facility] Comment on above: Order Comment: Speci men Type: BLOOD SPECIMEN Performed By: #### 2 777-1, 80419-3, , HFP ####[facility]ORYCLIA [id number] [address] STATES OF [facility] Chloride [Moles/Vol] 118 mmol/L High 97-105 [facility] Comment on above: Order Comment: Speci men Type: BLOOD SPECIMEN Performed By: #### 2 777-1, 85045-1, , HFP ####[facility]ORYCLIA [id number] [place] [address] [place] CO2 [Moles/Vol] 26 mmol/L Normal 22-30 [facility] Comment on above: Order Comment: Speci men Type: BLOOD SPECIMEN Performed By: #### 2 777-1, 37332-5, , [facility] ####[facility]ATORYCLIA [id number] [place] [address] [place] Creatinine [Mass/Vol] 0.70 mg/dL Low 0.73-1.22 [facility] Comment on above: Order Comment: Speci men Type: BLOOD SPECIMEN Performed By: #### 2 777-1, 21957-7, , [facility] ####[facility]ITALCLIA [id number] [address] [place] GFR/1.73 sq M.predicted MDRD (S/P/Bld) [Vol rate/Area] mL/min/{1.73_m2} Normal [facility] Comment on above: Order [...] actual GFR. Performed By: #### 2 777-1, 85290-7, , [facility] ####[facility] LABORATORYIA [id number] [place] [id number] [place] Glucose [Mass/Vol] 135 mg/dL High 74-99 [facility] Comment on above: Order Comment: Speci men Type: BLOOD SPECIMEN Result Comment: The [place] [employer] (ADA) provides guidance for cutoff [...] Standards of Medical Care in Diabetes 2016, [place] [employer]. Diabetes Care. 2016.39(Suppl 1). Performed By: #### 2 777-1, 51935-5, , [facility] ####[facility]ORYCLIA [id number] [address] STATES OF [facility] Potassium [Moles/Vol] 3.9 mmol/L Normal 3.7-5.1 [facility] Comment on above: Order Comment: Speci men Type: BLOOD SPECIMEN Performed By: #### 2 777-1, 10793-8, , [facility] ####[facility]ORYCLIA [id number] [address] STATES OF [facility] Sodium [Moles/Vol] 151 mmol/L High 136-144 [facility] Comment on above: Order Comment: Speci men Type: BLOOD SPECIMEN Performed By: #### 2 777-1, 63584-4, , [facility] ####[facility]ORYCLIA [id number] [address] STATES [facility] Urea nitrogen [Mass/Vol] 27 mg/dL High 9-24 [facility] Comment on above: Order Comment: Speci men Type: BLOOD SPECIMEN Performed By: #### 2 777-1, 02733-8, , [facility] ####[facility]ATORYCLIA [id number] [address] [place] CASE MANAGEMon 06-10-2021 CASE MANAGEM Normal [facility] CBC panel Auto (Bld)on 06-10 Erythrocyte distribution width (RBC) [Ratio] 16.2 % High 11.5-15.0 [facility] Comment on above: Order Comment: Speci men Type: BLOOD SPECIMEN Performed By: #### 5 8410-2 ####[facility]ORYCLIA [id number] [address] Hematocrit (Bld) [Volume fraction] 34.8 % Low 39.0-51.0 [facility] Comment on above: Order Comment: Speci men Type: BLOOD SPECIMEN Performed By: #### 5 8410-2 ####[facility]ORYCLIA [id number] [address] Hemoglobin (Bld) [Mass/Vol] 10.2 g/dL Low 13.0-17.0 [facility] Comment on above: Order Comment: Speci men Type: BLOOD SPECIMEN Performed By: #### 5 8410-2 ####[facility]ORYCLIA [id number] [address] MCH (RBC) [Entitic mass] 27.1 pg Normal 26.0-34.0 [facility] Comment on above: Order Comment: Speci men Type: BLOOD SPECIMEN Performed By: #### 5 8410-2 ####[facility]ORYCLIA [id number] [address] MCHC (RBC) [Mass/Vol] 29.3 g/dL Low 30.5-36.0 [facility] Comment on above: Order Comment: Speci men Type: BLOOD SPECIMEN Performed By: #### 5 8410-2 ####[facility]ORYCLIA [id number] [address] MCV (RBC) [Entitic vol] 92.6 fL Normal 80.0-100.0 [facility] Comment on above: Order Comment: Speci men Type: BLOOD SPECIMEN Performed By: #### 5 8410-2 ####[facility] LABORATORYCLIA [id number] [address] Nucleated RBC (Bld) [#/Vol] 10*3/uL Normal <0.01 [facility] Comment on above: Order Comment: Speci men Type: BLOOD SPECIMEN Performed By: #### 5 8410-2 ####[facility] LABORATORYCLIA [id number] [address] Platelet mean volume (Bld) [Entitic vol] 10.4 fL Normal 9.0-12.7 [facility] Comment on above: Order Comment: Speci men Type: BLOOD SPECIMEN Performed By: #### 5 8410-2 ####[facility] LABORATORYCLIA [id number] [address] Platelets (Bld) [#/Vol] 206 10*3/uL Normal 150-400 [facility] Comment on above: Order Comment: Speci men Type: BLOOD SPECIMEN Performed By: #### 5 8410-2 ####[facility] LABORATORYCLIA [id number] [address] RBC (Bld) [#/Vol] 3.76 10*6/uL Low 4.20-6.00 [facility] Comment on above: Order Comment: Speci men Type: BLOOD SPECIMEN Performed By: #### 5 8410-2 ####[facility]ORATORYCLIA [id number] [address] WBC (Bld) [#/Vol] 11.36 10*3/uL High 3.70-11.00 [facility] Comment on above: Order Comment: Speci men Type: BLOOD SPECIMEN Performed By: #### 5 8410-2 ####[facility] LABORATORYCLIA [id number] [address] HEPATIC FUNCTION PNLon 06-10 Albumin [Mass/Vol] 3.1 g/dL Low 3.9-4.9 [facility] Comment on above: Order Comment: Speci men Type: BLOOD SPECIMEN Performed By: #### 2 777-1, 31330-7, 85251-2, HFP ####[facility]ORATORYCLIA [id number] [place] [id number] [facility] ALP [Catalytic activity/Vol] 73 U/L Normal 38-113 [facility] Comment on above: Order Comment: Speci men Type: BLOOD SPECIMEN Performed By: #### 2 777-1, 64068-7, , HFP ####[facility]ATORYCLIA [id number] [place], [place] [address] [place] [address] ALT With P-5'-P [Catalytic activity/Vol] 64 U/L High 10-54 [facility] Comment on above: Order Comment: Speci men Type: BLOOD SPECIMEN Performed By: #### 2 777-1, 81511-2, , HFP ####[facility]ORYCLIA [id number] [address] AST With P-5'-P [Catalytic activity/Vol] 44 U/L High 14-40 [facility] Comment on above: Order Comment: Speci men Type: BLOOD SPECIMEN Performed By: #### 2 777-1, 47068-0, , HFP ####[facility]ORYCLIA [id number] [address] Bilirubin [Mass/Vol] 0.5 mg/dL Normal 0.2-1.3 [facility] Comment on above: Order Comment: Speci men Type: BLOOD SPECIMEN Performed By: #### 2 777-1, 08044-1, , HFP ####[facility]ORYCLIA [id number] [address] Bilirubin.conjugated [Mass/Vol] mg/dL Normal <0.2 [facility] Comment on above: Order Comment: Speci men Type: BLOOD SPECIMEN Performed By: #### 2 777-1, 31674-1, , HFP ####[facility]ORYCLIA [id number] [place], [place] [address] [place] [address] OF [facility] Protein [Mass/Vol] 5.7 g/dL Low 6.3-8.0 [facility] Comment on above: Order Comment: Speci men Type: BLOOD SPECIMEN Performed By: #### 2 777-1, 81875-4, , [facility] ####[facility] LABORATORYCLIA [id number] [place] [address] [place] LEVETIRACETAMon 06-10-2021 levETIRAcetam [Mass/Vol] 57.7 ug/mL High 12.0-46.0 [facility] Comment on above: Order [...] developed and its performance characteristics determined by [facility]'s Isrrael Perez [facility] ( [facility]). It has not been cleared or approved by the FDA. [facility] is regulated under CLIA as qualified to perform high complexity testing. This test is used for clinical purposes. It should not be regarded as investigational or for research. Performed By: #### L DARY ####[facility] REFERENCE LABCLIA [id number] [facility] [place] [address] [place] Magnesium SerPl-mCncon 06-10 Magnesium [Mass/Vol] 2.7 mg/dL High 1.7-2.3 [facility] Comment on above: Order Comment: Speci men Type: BLOOD SPECIMEN Performed By: #### 2 777-1, 12861-9, , [facility] ####[facility] LABORATORYCLIA [id number] [place] [address] [place] Phosphate SerPl-mCncon 06-10 Phosphate [Mass/Vol] 1.8 mg/dL Low 2.7-4.8 [facility] Comment on above: Order Comment: Speci men Type: BLOOD SPECIMEN Performed By: #### 2 777-1, 43450-7, , HFP ####[facility]ORYCLIA [id number] [place] [address] [place] ALLIED HEALTHon 06-09-2021 ALLIED HEALTH Normal [facility] ALLIED HEALTH Normal [facility] ALLIED HEALTH Normal [facility] ALLIED HEALTH Normal [facility] Basic metabolic 2000 panelon 06-09-2021 Anion gap [Moles/Vol] 8 mmol/L Low 9-18 [facility] Comment on above: Order Comment: Speci men Type: BLOOD SPECIMEN Performed By: #### 2 4321-2, 27711-04, ####[facility]ORYCLIA [id number] [place] [address] [place] Calcium [Mass/Vol] 8.3 mg/dL Low 8.5-10.2 [facility] Comment on above: Order Comment: Speci men Type: BLOOD SPECIMEN Performed By: #### 2 4321-2, 2776-05, ####[facility]ORYCLIA [id number] [place] [address] [place] Chloride [Moles/Vol] 116 mmol/L High 97-105 [facility] Comment on above: Order Comment: Speci men Type: BLOOD SPECIMEN Performed By: #### 2 4321-2, 2776-05, ####[facility]ORYCLIA [id number] [place] [address] [place] CO2 [Moles/Vol] 27 mmol/L Normal 22-30 [facility] Comment on above: Order Comment: Speci men Type: BLOOD SPECIMEN Performed By: #### 2 4321-2, 2776-, ####[facility]ORYCLIA [id number] [place] [address] [place] Creatinine [Mass/Vol] 0.70 mg/dL Low 0.73-1.22 [facility] Comment on above: Order Comment: Speci men Type: BLOOD SPECIMEN Performed By: #### 2 4321-2, 277-1, 83322-1 ####[facility]IA [id number] [place] [address] [place] GFR/1.73 sq M.predicted MDRD (S/P/Bld) [Vol rate/Area] mL/min/{1.73_m2} Normal [facility] Comment on above: Order [...] 2 4321-2, 2777-, ####[facility] [id number] [place] [address] [place] Glucose [Mass/Vol] 123 mg/dL High 74-99 [facility] Comment on above: Order Comment: Speci men Type: BLOOD SPECIMEN Result Comment: The [place] [employer] (ADA) provides guidance for cutoff [...] Standards of Medical Care in Diabetes 2016, [place] [employer]. Diabetes Care. 2016.39(Suppl 1). Performed By: #### 2 4321-2, 2777-1, 29314-8 ####[facility] LABORATORYIA [id number] [address] Potassium [Moles/Vol] 3.5 mmol/L Low 3.7-5.1 [facility] Comment on above: Order Comment: Speci men Type: BLOOD SPECIMEN Performed By: #### 2 4321-2, 2776-, ####[facility] LABORATORYCLIA [id number] [address] Sodium [Moles/Vol] 151 mmol/L High 136-144 [facility] Comment on above: Order Comment: Speci men Type: BLOOD SPECIMEN Performed By: #### 2 4321-2, 2776-05, ####[facility] LABORATORYCLIA [id number] [address] Urea nitrogen [Mass/Vol] 39 mg/dL High 9-24 [facility] Comment on above: Order Comment: Speci men Type: BLOOD SPECIMEN Performed By: #### 2 4321-2, 2776-05, ####[facility] LABORATORYCLIA [id number] [address] CBC panel Auto (Bld)on 06-09 Erythrocyte distribution width (RBC) [Ratio] 16.2 % High 11.5-15.0 [facility] Comment on above: Order Comment: Speci men Type: BLOOD SPECIMEN Performed By: #### 5 8410-2 ####[facility] LABORATORYCLIA [id number] [address] Hematocrit (Bld) [Volume fraction] 33.7 % Low 39.0-51.0 [facility] Comment on above: Order Comment: Speci men Type: BLOOD SPECIMEN Performed By: #### 5 8410-2 ####[facility] LABORATORYCLIA [id number] [address] Hemoglobin (Bld) [Mass/Vol] 10.2 g/dL Low 13.0-17.0 [facility] Comment on above: Order Comment: Speci men Type: BLOOD SPECIMEN Performed By: #### 5 8410-2 ####[facility] LABORATORYCLIA [id number] [address] MCH (RBC) [Entitic mass] 27.4 pg Normal 26.0-34.0 [facility] Comment on above: Order Comment: Speci men Type: BLOOD SPECIMEN Performed By: #### 5 8410-2 ####[facility] LABORATORYCLIA [id number] [address] MCHC (RBC) [Mass/Vol] 30.3 g/dL Low 30.5-36.0 [facility] Comment on above: Order Comment: Speci men Type: BLOOD SPECIMEN Performed By: #### 5 8410-2 ####[facility] LABORATORYCLIA [id number] [address] MCV (RBC) [Entitic vol] 90.6 fL Normal 80.0-100.0 [facility] Comment on above: Order Comment: Speci men Type: BLOOD SPECIMEN Performed By: #### 5 8410-2 ####[facility] LABORATORYCLIA [id number] [address] Nucleated RBC (Bld) [#/Vol] 10*3/uL Normal <0.01 [facility] Comment on above: Order Comment: Speci men Type: BLOOD SPECIMEN Performed By: #### 5 8410-2 ####[facility]ORATORYCLIA [id number] [address] Platelet mean volume (Bld) [Entitic vol] 10.3 fL Normal 9.0-12.7 [facility] Comment on above: Order Comment: Speci men Type: BLOOD SPECIMEN Performed By: #### 5 8410-2 ####[facility]ORATORYCLIA [id number] [address] Platelets (Bld) [#/Vol] 219 10*3/uL Normal 150-400 [facility] Comment on above: Order Comment: Speci men Type: BLOOD SPECIMEN Performed By: #### 5 8410-2 ####[facility]ORATORYCLIA [id number] [address] RBC (Bld) [#/Vol] 3.72 10*6/uL Low 4.20-6.00 [facility] Comment on above: Order Comment: Speci men Type: BLOOD SPECIMEN Performed By: #### 5 8410-2 ####[facility]ORATORYCLIA [id number] [address] WBC (Bld) [#/Vol] 13.02 10*3/uL High 3.70-11.00 [facility] Comment on above: Order Comment: Speci men Type: BLOOD SPECIMEN Performed By: #### 5 8410-2 ####[facility]ORATORYCLIA [id number] [address] CONSULT PROGon 06-09-2021 CONSULT PROG Normal [facility] CONSULT PROG Normal [facility] CT BRAIN WO IVCONon 06-09-[address] BRAIN WO IVCON Normal [facility] Magnesium SerPl-mCncon 06-09 Magnesium [Mass/Vol] 2.8 mg/dL High 1.7-2.3 [facility] Comment on above: Order Comment: Speci men Type: BLOOD SPECIMEN Performed By: #### 2 4321-2, 2777, ####[facility] LABORATORYCLIA [id number] [address] NURSING PROGon 06-09-2021 NURSING PROG Normal [facility] NUTRITIONon 06-09-2021 NUTRITION Normal [facility] PT EDon 06-09-2021 PT ED Normal [facility] Phosphate SerPl-mCncon 06-09 Phosphate [Mass/Vol] 2.2 mg/dL Low 2.7-4.8 [facility] Comment on above: Order Comment: Speci men Type: BLOOD SPECIMEN Performed By: #### 2 4321-2, 2777-1, ####[facility]ORYCLIA [id number] [address] [place] Vancomycin random [Mass/Vol] on 06-09-2021 Vancomycin [Mass/Vol] 18.9 ug/mL Normal 10.0-20.0 [facility] Comment on above: Order Comment: Speci men Type: BLOOD SPECIMEN Result Comment: Refe rence ranges and high/low indicator flags are provided as general guidelines only. The treating physician must determine appropriate target levels/dosing based on the specific clinical situation. Performed By: #### 4 091-5 ####[facility] LABORATORYCLIA [id number] [address] OF [facility] XR ABD 2V SUPINE W UPR/DECUB /CTLon 06-09-2021 XR ABD 2V SUPINE W UPR/DECUB/CTL Normal [facility] XR CHEST 1V FRONTALon 2021 XR CHEST 1V FRONTAL Normal [facility] XR NECK SOFT TISSUE 2V AP/LA Ton 06-09-2021 XR NECK SOFT TISSUE 2V AP/LAT Normal [facility] XR SKULL 2V AP/LATon 022 XR SKULL 2V AP/LAT Normal [facility] ALLIED HEALTHon 06-08-2021 ALLIED HEALTH Normal [facility] ANES POSTPROC EVALon 022 ANES POSTPROC EVAL Normal [facility] ANES PRE-OPon 06-08-2021 ANES PRE-OP Normal [facility] BRIEF OP NOTon 06-08-2021 BRIEF OP NOT Normal [facility] Bacteria Spec Anaerobe Culto n 06-08-2021 Bacteria identified Anaer cx Nom (Unsp spec) ORGANISM ID: 1 Rare Staphylococcus saccharolyticus Identification performed by [facility] See scanned document for susceptibility report Normal [facility] Comment on above: Performed By: #### 6 462-6, 635-3 ####[facility]ORATORYCLIA [id number] [address] [place] Bacteria Wnd Culton 06-08-19 22 Bacteria identified Cx Nom (Wound) CULTURE, INTRAOPERATIVE HARDWARE: No growth 5 days GRAM STAIN: Not performed on specimen type Normal [facility] Comment on above: Performed By: #### 6 462-6, 635-3 ####[facility]ORYCLIA [id number] [place], [place] [address] [place] [address] OF [facility] Basic metabolic 2000 panelon 06-08-2021 Anion gap [Moles/Vol] 9 mmol/L Normal 9-18 [facility] Comment on above: Order Comment: Speci men Type: BLOOD SPECIMEN Performed By: #### 2 4321-2, 2776-, ####[facility]ORYCLIA [id number] [place], [place] [address] [place] [address] [place] Calcium [Mass/Vol] 8.7 mg/dL Normal 8.5-10.2 [facility] Comment on above: Order Comment: Speci men Type: BLOOD SPECIMEN Performed By: #### 2 4321-2, 2776-, ####[facility]ORYCLIA [id number] [address] STATES OF [facility] Chloride [Moles/Vol] 113 mmol/L High 97-105 [facility] Comment on above: Order Comment: Speci men Type: BLOOD SPECIMEN Performed By: #### 2 4321-2, 2776-05, ####[facility]ORYCLIA [id number] [place], [place] [address] [place] [address] [place] CO2 [Moles/Vol] 26 mmol/L Normal 22-30 [facility] Comment on above: Order Comment: Speci men Type: BLOOD SPECIMEN Performed By: #### 2 4321-2, 2776-, ####[facility]ORYCLIA [id number] [place], [place] [address] [place] [address] [place] Creatinine [Mass/Vol] 0.68 mg/dL Low 0.73-1.22 [facility] Comment on above: Order Comment: Speci men Type: BLOOD SPECIMEN Performed By: #### 2 4321-2, 2776-, ####[facility]ORYCLIA [id number] [place] [address] [place] GFR/1.73 sq M.predicted MDRD (S/P/Bld) [Vol rate/Area] mL/min/{1.73_m2} Normal [facility] Comment on above: Order [...] GFR. Performed By: #### 2 4321-2, 2777-1, 01611-8 ####[facility] LABORATORYCLIA [id number] [place] [address] [place] Glucose [Mass/Vol] 146 mg/dL High 74-99 [facility] Comment on above: Order Comment: Speci men Type: BLOOD SPECIMEN Result Comment: The [place] [employer] (ADA) provides guidance for cutoff [...] Standards of Medical Care in Diabetes 2016, [place] [employer]. Diabetes Care. 2016.39(Suppl 1). Performed By: #### 2 4321-2, 2777-1, 60228-8 ####[facility] LABORATORYCLIA [id number] [place] [address] [place] Potassium [Moles/Vol] 3.6 mmol/L Low 3.7-5.1 [facility] Comment on above: Order Comment: Speci men Type: BLOOD SPECIMEN Performed By: #### 2 4321-2, 2777-1, ####[facility]ATORYCLIA [id number] [place], [place] [address] [place] [address] Sodium [Moles/Vol] 148 mmol/L High 136-144 [facility] Comment on above: Order Comment: Speci men Type: BLOOD SPECIMEN Performed By: #### 2 4321-2, 2776-, ####[facility]ORATORYCLIA [id number] [place], [place] [address] [place] [address] Urea nitrogen [Mass/Vol] 36 mg/dL High 9-24 [facility] Comment on above: Order Comment: Speci men Type: BLOOD SPECIMEN Performed By: #### 2 4321-2, 2776-05, ####[facility] LABORATORYCLIA [id number] [address] OF [facility] CASE MANAGEMon 06-08-2021 CASE MANAGEM Normal [facility] CBC panel Auto (Bld)on 06-08 Erythrocyte distribution width (RBC) [Ratio] 16.0 % High 11.5-15.0 [facility] Comment on above: Order Comment: Speci men Type: BLOOD SPECIMEN Performed By: #### 5 8410-2 ####[facility]ORATORYCLIA [id number] [address] Hematocrit (Bld) [Volume fraction] 38.4 % Low 39.0-51.0 [facility] Comment on above: Order Comment: Speci men Type: BLOOD SPECIMEN Performed By: #### 5 8410-2 ####[facility]ORYCLIA [id number] [address] Hemoglobin (Bld) [Mass/Vol] 12.1 g/dL Low 13.0-17.0 [facility] Comment on above: Order Comment: Speci men Type: BLOOD SPECIMEN Performed By: #### 5 8410-2 ####[facility] LABORATORYCLIA [id number] [address] MCH (RBC) [Entitic mass] 28.3 pg Normal 26.0-34.0 [facility] Comment on above: Order Comment: Speci men Type: BLOOD SPECIMEN Performed By: #### 5 8410-2 ####[facility]ORATORYCLIA [id number] [address] MCHC (RBC) [Mass/Vol] 31.5 g/dL Normal 30.5-36.0 [facility] Comment on above: Order Comment: Speci men Type: BLOOD SPECIMEN Performed By: #### 5 8410-2 ####[facility]ORATORYCLIA [id number] [address] MCV (RBC) [Entitic vol] 89.9 fL Normal 80.0-100.0 [facility] Comment on above: Order Comment: Speci men Type: BLOOD SPECIMEN Performed By: #### 5 8410-2 ####[facility]ORATORYCLIA [id number] [address] Nucleated RBC (Bld) [#/Vol] 10*3/uL Normal <0.01 [facility] Comment on above: Order Comment: Speci men Type: BLOOD SPECIMEN Performed By: #### 5 8410-2 ####[facility]ORATORYCLIA [id number] [address] Platelet mean volume (Bld) [Entitic vol] 10.3 fL Normal 9.0-12.7 [facility] Comment on above: Order Comment: Speci men Type: BLOOD SPECIMEN Performed By: #### 5 8410-2 ####[facility]ORATORYCLIA [id number] [address] Platelets (Bld) [#/Vol] 236 10*3/uL Normal 150-400 [facility] Comment on above: Order Comment: Speci men Type: BLOOD SPECIMEN Performed By: #### 5 8410-2 ####[facility]ORYCLIA [id number] [address] OF [facility] RBC (Bld) [#/Vol] 4.27 10*6/uL Normal 4.20-6.00 [facility] Comment on above: Order Comment: Speci men Type: BLOOD SPECIMEN Performed By: #### 5 8410-2 ####[facility]ORATORYCLIA [id number] [address] WBC (Bld) [#/Vol] 11.06 10*3/uL High 3.70-11.00 [facility] Comment on above: Order Comment: Speci men Type: BLOOD SPECIMEN Performed By: #### 5 8410-2 ####[facility]ORATORYCLIA [id number] [address] CONSULT PROGon 06-08-2021 CONSULT PROG Normal [facility] CT BRAIN WO IVCONon 06-08-[address] BRAIN WO IVCON Normal [facility] Magnesium SerPl-mCncon 06-08 Magnesium [Mass/Vol] 2.8 mg/dL High 1.7-2.3 [facility] Comment on above: Order Comment: Speci men Type: BLOOD SPECIMEN Performed By: #### 2 4321-2, 2777-1, 07084-0 ####[facility]ORATORYCLIA [id number] [address] Microorganism Spec Culton Microorganism identified Cx Nom (Unsp spec) CULTURE, FUNGAL: No Fungus isolated after 28 days FUNGAL SMEAR: No fungus seen Normal [facility] Comment on above: Performed By: #### 1 1475-1 ####[facility]ORYCLIA [id number] [address] NURSING PROGon 06-08-2021 NURSING PROG Normal [facility] OPERATIVE NOon 06-08-2021 OPERATIVE NO Normal [facility] OPERATIVE NO Normal [facility] PT panel Coag (PPP)on 2021 INR Coag (PPP) [Relative time] 1.1 {INR} Normal 0.9-1.3 [facility] Comment on above: Order Comment: Speci men Type: BLOOD SPECIMEN Result Comment: Yris min K Antagonist (VKA) Therapeutic Range: INR 2 to 3 (Target INR of 2.5)Note: For patients treated with VKA drugs, such as warfarin, the [employer] 2012 Guideline recommends [...] al. Chest 2012, 141:7S-47SNishimpatricia RA, et al. [facility] 2017, 70: 252-289 Performed By: #### 3 4528-0, 44604-8 ####[facility] LABORATORYCLIA [id number] [address] STATES OF [facility] PT Coag (PPP) [Time] 11.9 s Normal 9.7-13.0 [facility] Comment on above: Order Comment: Speci men Type: BLOOD SPECIMEN Performed By: #### 3 4528-0, 11362-9 ####[facility] LABORATORYCLIA [id number] [place] [address] [place] Phosphate SerPl-mCncon 06-08 Phosphate [Mass/Vol] 2.3 mg/dL Low 2.7-4.8 [facility] Comment on above: Order Comment: Speci men Type: BLOOD SPECIMEN Performed By: #### 2 4321-2, 2777-1, 87288-4 ####[facility] LABORATORYCLIA [id number] [place] [address] [place] aPTT PPPon 06-08-2021 aPTT Coag (PPP) [Time] 24.2 s Normal 23.0-32.[address] [place] Comment on above: Order Comment: Speci men Type: BLOOD SPECIMEN Performed By: #### 3 4528-0, 69000-8 ####[facility]ORATORYCLIA [id number] [address] STATES OF [facility] ALLIED HEALTHon 06-07-2021 ALLIED HEALTH Normal [facility] ALLIED HEALTH Normal [facility] ALLIED HEALTH Normal [facility] Bacteria CSF Culton 06-07-19 22 Bacteria identified Cx Nom (CSF) CULTURE, CSF: No growth 14 days GRAM STAIN: No organisms seen Rare Mononuclear cells Rare Polymorphonuclear leukocytes Gram stain performed on cytospun specimen. Normal [facility] Comment on above: Performed By: #### 6 06-4 ####[facility] LABORATORYCLIA [id number] [address] STATES OF [facility] Basic metabolic 2000 panelon 06-07-2021 Anion gap [Moles/Vol] 9 mmol/L Normal 9-18 [facility] Comment on above: Order Comment: Speci men Type: BLOOD SPECIMEN Performed By: #### 1 9123-9, 2777-1, 56120-1 ####[facility] LABORATORYCLIA [id number] [place] [address] [place] Calcium [Mass/Vol] 8.8 mg/dL Normal 8.5-10.2 [facility] Comment on above: Order Comment: Speci men Type: BLOOD SPECIMEN Performed By: #### 1 9123-9, 2777-1, 85929-5 ####[facility]ORATORYCLIA [id number] [place] [address] [place] Chloride [Moles/Vol] 111 mmol/L High 97-105 [facility] Comment on above: Order Comment: Speci men Type: BLOOD SPECIMEN Performed By: #### 1 9123-9, 2777-1, 74802-1 ####[facility]ORATORYCLIA [id number] [place] [address] [place] CO2 [Moles/Vol] 27 mmol/L Normal 22-30 [facility] Comment on above: Order Comment: Speci men Type: BLOOD SPECIMEN Performed By: #### 1 9123-9, 2777-1, 39677-4 ####[facility]ORATORYCLIA [id number] [address] STATES OF [facility] Creatinine [Mass/Vol] 0.66 mg/dL Low 0.73-1.22 [facility] Comment on above: Order Comment: Speci men Type: BLOOD SPECIMEN Performed By: #### 1 9123-9, 2777-, 13963-8 ####[facility]ORATORYCLIA [id number] [address] [place] GFR/1.73 sq M.predicted MDRD (S/P/Bld) [Vol rate/Area] mL/min/{1.73_m2} Normal [facility] Comment on above: Order Comment: Speci [facility] Type: BLOOD SPECIMEN Result Comment: >60e GFR [...] GFR. Performed By: #### 1 9123-9, 2777-1, 69326-8 ####[facility]ORATORYCLIA [id number] [address] [place] Glucose [Mass/Vol] 123 mg/dL High 74-99 [facility] Comment on above: Order Comment: Speci [facility] Type: BLOOD SPECIMEN Result Comment: The [place] [employer] (ADA) provides guidance for cutoff [...] Standards of Medical Care in Diabetes 2016, [place] [employer]. Diabetes Care. 2016.39(Suppl 1). Performed By: #### 1 9123-9, 2777-, 63666-1 ####[facility]ORATORYCLIA [id number] [address] Potassium [Moles/Vol] 3.6 mmol/L Low 3.7-5.1 [facility] Comment on above: Order Comment: Speci men Type: BLOOD SPECIMEN Performed By: #### 1 9123-9, 2776-05, 92086-9 ####[facility]ORATORYCLIA [id number] [address] Sodium [Moles/Vol] 147 mmol/L High 136-144 [facility] Comment on above: Order Comment: Speci men Type: BLOOD SPECIMEN Performed By: #### 1 9123-9, 27711-04, 17427-9 ####[facility]ORATORYCLIA [id number] [address] Urea nitrogen [Mass/Vol] 30 mg/dL High 9-24 [facility] Comment on above: Order Comment: Speci men Type: BLOOD SPECIMEN Performed By: #### 1 9123-9, 27711-04, 12321-7 ####[facility]ORATORYCLIA [id number] [address] CBC W Auto Differential pane l (Bld)on 06-07-2021 Basophils (Bld) [#/Vol] 10*3/uL Normal <0.11 [facility] Comment on above: Order Comment: Speci men Type: BLOOD SPECIMEN Performed By: #### 5 7021-8 ####[facility]ORATORYCLIA [id number] [address] Basophils/100 WBC (Bld) 0.2 % Normal [facility] Comment on above: Order Comment: Speci men Type: BLOOD SPECIMEN Performed By: #### 5 7021-8 ####[facility]ORATORYCLIA [id number] [address] [place] Differential cell count method Nom (Bld) Auto Normal [facility] Comment on above: Order Comment: Speci men Type: BLOOD SPECIMEN Performed By: #### 5 7021-8 ####[facility]ATORYCLIA [id number] [address] Eosinophils (Bld) [#/Vol] 0.06 10*3/uL Normal <0.46 [facility] Comment on above: Order Comment: Speci men Type: BLOOD SPECIMEN Performed By: #### 5 7021-8 ####[facility]ATORYCLIA [id number] [address] Eosinophils/100 WBC (Bld) 0.6 % Normal [facility] Comment on above: Order Comment: Speci men Type: BLOOD SPECIMEN Performed By: #### 5 7021-8 ####[facility]ORYCLIA [id number] [address] Erythrocyte distribution width (RBC) [Ratio] 15.8 % High 11.5-15.0 [facility] Comment on above: Order Comment: Speci men Type: BLOOD SPECIMEN Performed By: #### 5 7021-8 ####[facility]ORYCLIA [id number] [address] Hematocrit (Bld) [Volume fraction] 40.4 % Normal 39.0-51.0 [facility] Comment on above: Order Comment: Speci men Type: BLOOD SPECIMEN Performed By: #### 5 7021-8 ####[facility]ORYCLIA [id number] [address] [place] Hemoglobin (Bld) [Mass/Vol] 12.4 g/dL Low 13.0-17.0 [facility] Comment on above: Order Comment: Speci men Type: BLOOD SPECIMEN Performed By: #### 5 7021-8 ####[facility]ORYCLIA [id number] [address] IMMATURE GRAN % 0.7 % Normal [facility] Comment on above: Order Comment: Speci men Type: BLOOD SPECIMEN Performed By: #### 5 7021-8 ####[facility]ORYCLIA [id number] [address] IMMATURE GRAN ABS 0.07 k/uL Normal <0.10 [facility] Comment on above: Order Comment: Speci men Type: BLOOD SPECIMEN Performed By: #### 5 7021-8 ####[facility]ORATORYCLIA [id number] [address] Lymphocytes (Bld) [#/Vol] 1.43 10*3/uL Normal 1.00-4.00 [facility] Comment on above: Order Comment: Speci men Type: BLOOD SPECIMEN Performed By: #### 5 7021-8 ####[facility] LABORATORYCLIA [id number] [address] Lymphocytes/100 WBC (Bld) 14.1 % Normal [facility] Comment on above: Order Comment: Speci men Type: BLOOD SPECIMEN Performed By: #### 5 7021-8 ####[facility]ORYCLIA [id number] [address] MCH (RBC) [Entitic mass] 27.6 pg Normal 26.0-34.0 [facility] Comment on above: Order Comment: Speci men Type: BLOOD SPECIMEN Performed By: #### 5 7021-8 ####[facility]ORYCLIA [id number] [address] MCHC (RBC) [Mass/Vol] 30.7 g/dL Normal 30.5-36.0 [facility] Comment on above: Order Comment: Speci men Type: BLOOD SPECIMEN Performed By: #### 5 7021-8 ####[facility]ORYCLIA [id number] [address] MCV (RBC) [Entitic vol] 89.8 fL Normal 80.0-100.0 [facility] Comment on above: Order Comment: Speci men Type: BLOOD SPECIMEN Performed By: #### 5 7021-8 ####[facility]ORATORYCLIA [id number] [address] Monocytes (Bld) [#/Vol] 0.82 10*3/uL Normal <0.87 [facility] Comment on above: Order Comment: Speci men Type: BLOOD SPECIMEN Performed By: #### 5 7021-8 ####[facility]ORATORYCLIA [id number] [address] Monocytes/100 WBC (Bld) 8.1 % Normal [facility] Comment on above: Order Comment: Speci men Type: BLOOD SPECIMEN Performed By: #### 5 7021-8 ####[facility]ORATORYCLIA [id number] [address] Neutrophils (Bld) [#/Vol] 7.74 10*3/uL High 1.45-7.50 [facility] Comment on above: Order Comment: Speci men Type: BLOOD SPECIMEN Performed By: #### 5 7021-8 ####[facility]ORATORYCLIA [id number] [address] Neutrophils/100 WBC (Bld) 76.3 % Normal [facility] Comment on above: Order Comment: Speci men Type: BLOOD SPECIMEN Performed By: #### 5 7021-8 ####[facility]ORYCLIA [id number] [address] Nucleated RBC (Bld) [#/Vol] 10*3/uL Normal <0.01 [facility] Comment on above: Order Comment: Speci men Type: BLOOD SPECIMEN Performed By: #### 5 7021-8 ####[facility]ORYCLIA [id number] [address] Nucleated RBC/100 WBC (Bld) [Ratio] 0.0 /100 WBC Normal 0.0 [facility] Comment on above: Order Comment: Speci men Type: BLOOD SPECIMEN Performed By: #### 5 7021-8 ####[facility]ORATORYCLIA [id number] [address] Platelet mean volume (Bld) [Entitic vol] 10.4 fL Normal 9.0-12.7 [facility] Comment on above: Order Comment: Speci men Type: BLOOD SPECIMEN Performed By: #### 5 7021-8 ####[facility]ORATORYCLIA [id number] [address] Platelets (Bld) [#/Vol] 236 10*3/uL Normal 150-400 [facility] Comment on above: Order Comment: Speci men Type: BLOOD SPECIMEN Performed By: #### 5 7021-8 ####[facility]ORATORYCLIA [id number] [address] RBC (Bld) [#/Vol] 4.50 10*6/uL Normal 4.20-6.00 [facility] Comment on above: Order Comment: Speci men Type: BLOOD SPECIMEN Performed By: #### 5 7021-8 ####[facility]ORATORYCLIA [id number] [address] WBC (Bld) [#/Vol] 10.14 10*3/uL Normal 3.70-11.00 [facility] Comment on above: Order Comment: Speci men Type: BLOOD SPECIMEN Performed By: #### 5 7021-8 ####[facility]ORATORYCLIA [id number] [address] CBC panel Auto (Bld)on 06-07 Erythrocyte distribution width (RBC) [Ratio] 15.8 % High 11.5-15.0 [facility] Comment on above: Order Comment: Speci men Type: BLOOD SPECIMEN Performed By: #### 5 8410-2 ####[facility]ORATORYCLIA [id number] [address] Hematocrit (Bld) [Volume fraction] 40.0 % Normal 39.0-51.0 [facility] Comment on above: Order Comment: Speci men Type: BLOOD SPECIMEN Performed By: #### 5 8410-2 ####[facility]ORATORYCLIA [id number] [address] Hemoglobin (Bld) [Mass/Vol] 12.3 g/dL Low 13.0-17.0 [facility] Comment on above: Order Comment: Speci men Type: BLOOD SPECIMEN Performed By: #### 5 8410-2 ####[facility]ORATORYCLIA [id number] [address] MCH (RBC) [Entitic mass] 27.3 pg Normal 26.0-34.0 [facility] Comment on above: Order Comment: Speci men Type: BLOOD SPECIMEN Performed By: #### 5 8410-2 ####[facility]ORATORYCLIA [id number] [address] MCHC (RBC) [Mass/Vol] 30.8 g/dL Normal 30.5-36.0 [facility] Comment on above: Order Comment: Speci men Type: BLOOD SPECIMEN Performed By: #### 5 8410-2 ####[facility]ORATORYCLIA [id number] [address] MCV (RBC) [Entitic vol] 88.7 fL Normal 80.0-100.0 [facility] Comment on above: Order Comment: Speci men Type: BLOOD SPECIMEN Performed By: #### 5 8410-2 ####[facility]ORATORYCLIA [id number] [address] Nucleated RBC (Bld) [#/Vol] 10*3/uL Normal <0.01 [facility] Comment on above: Order Comment: Speci men Type: BLOOD SPECIMEN Performed By: #### 5 8410-2 ####[facility]ORATORYCLIA [id number] [address] [place] Platelet mean volume (Bld) [Entitic vol] 10.0 fL Normal 9.0-12.7 [facility] Comment on above: Order Comment: Speci men Type: BLOOD SPECIMEN Performed By: #### 5 8410-2 ####[facility]ORATORYCLIA [id number] [address] [place] Platelets (Bld) [#/Vol] 234 10*3/uL Normal 150-400 [facility] Comment on above: Order Comment: Speci men Type: BLOOD SPECIMEN Performed By: #### 5 8410-2 ####[facility]ORATORYCLIA [id number] [address] OF [facility] RBC (Bld) [#/Vol] 4.51 10*6/uL Normal 4.20-6.00 [facility] Comment on above: Order Comment: Speci men Type: BLOOD SPECIMEN Performed By: #### 5 8410-2 ####[facility]ORATORYCLIA [id number] [address] OF [facility] WBC (Bld) [#/Vol] 11.47 10*3/uL High 3.70-11.00 [facility] Comment on above: Order Comment: Speci men Type: BLOOD SPECIMEN Performed By: #### 5 8410-2 ####[facility]ORATORYCLIA [id number] [address] OF [facility] CONSULT PROGon 06-07-2021 CONSULT PROG Normal [facility] CONSULT PROG Normal [facility] CSF MANUAL DIFFon 06-07-2021 DIF TTL, CSF 92 cells counted Normal [facility] Comment on above: Order Comment: Speci men Type: CEREBROSPINAL FLUID Performed By: #### 3 4563-7, [id number], [id number] ####[facility]ORATORYCLIA [id number] [address] [place] EOSIN%, CSF 1 % Normal [facility] Comment on above: Order Comment: Speci men Type: CEREBROSPINAL FLUID Performed By: #### 3 4563-7, [id number], [id number] ####[facility]ORATORYCLIA [id number] [address] STATES [place] LYMPH%, CSF 21 % Low 50-90 [facility] Comment on above: Order Comment: Speci men Type: CEREBROSPINAL FLUID Performed By: #### 3 4563-7, [id number], [id number] ####[facility]ORYCLIA [id number] [address] [place] MACRO%, CSF 27 % High <1 [facility] Comment on above: Order Comment: Speci men Type: CEREBROSPINAL FLUID Result Comment: Tati ected result: Previously reported as 22 % on 06/07/2021 at 1:49 PM EST. Performed By: #### 3 4563-7, [id number], [id number] ####[facility]ORYCLIA [id number] [address] [place] MONO%, CSF 36 % Normal 10-50 [facility] Comment on above: Order Comment: Speci men Type: CEREBROSPINAL FLUID Performed By: #### 3 4563-7, [id number], [id number] ####[facility]ORATORYCLIA [id number] [place] [address] [place] NEUT%, CSF 11 % High 0-3 [facility] Comment on above: Order Comment: Speci men Type: CEREBROSPINAL FLUID Performed By: #### 3 4563-7, [id number], [id number] ####[facility]ORYCLIA [id number] [address] [place] OTHER CL%, CSF 4 % Normal [facility] Comment on above: Order Comment: Speci men Type: CEREBROSPINAL FLUID Result Comment: Path review to follow.Corrected result: Previously reported as 10 % on 06/07/2021 at 1:49 PM EST. Performed By: #### 3 4563-7, [id number], [id number] ####[facility]ORYCLIA [id number] [address] CSF PATHOLOGIST INTERP (LAB REFLEX ORDER-NO BILL)on 06-07-2021 CSF STAFF REVIEW Negative for maligna nt cells. Rare immature myeloid or ventricular lining cells. Normal [facility] Comment on above: Order Comment: Speci men Type: CEREBROSPINAL FLUID Performed By: #### 3 4563-7, [id number], [id number] ####[facility]ORATORYCLIA [id number] [address] Pathologist name Reviewed by Eloise rebolledo MD [facility] Comment on above: Order Comment: Speci men Type: CEREBROSPINAL FLUID Performed By: #### 3 4563-7, [id number], [id number] ####[facility]ORATORYCLIA [id number] [address] BRAIN WO IVCONon 06-07-19 CT BRAIN WO IVCON Normal [facility] CT BRAIN WO IVCON Normal [facility] Cell count panel (CSF)on Clarity (CSF) Clear Normal Clear [facility] Comment on above: Order Comment: Speci men Type: CEREBROSPINAL FLUID Performed By: #### 3 4563-7, [id number], [id number] ####[facility]ORATORYCLIA [id number] [address] Clarity (Unsp spec) Not Indicated Normal Clear [place] Comment on above: Order Comment: Speci men Type: CEREBROSPINAL FLUID Performed By: #### 3 4563-7, [id number], [id number] ####[facility]ORATORYCLIA [id number] [place], [place] [id number] [place] [address] Color (CSF) Colorless Normal Colorless [facility] Comment on above: Order Comment: Speci men Type: CEREBROSPINAL FLUID Performed By: #### 3 4563-7, [id number], [id number] ####[facility]ORATORYCLIA [id number] [address] [place] Color (Spun CSF) Not Indicated Normal Colorless [facility] Comment on above: Order Comment: Speci men Type: CEREBROSPINAL FLUID Performed By: #### 3 4563-7, [id number], [id number] ####[facility]ORATORYCLIA [id number] [address] CSF TUBE NUMBER [employer] Normal [place] Comment on above: Order Comment: Speci men Type: CEREBROSPINAL FLUID Performed By: #### 3 4563-7, [id number], [id number] ####[facility]ORATORYCLIA [id number] [address] RBC Manual cnt (CSF) [#/Vol] 42 cells/uL High 0-5 [facility] Comment on above: Order Comment: Speci men Type: CEREBROSPINAL FLUID Performed By: #### 3 4563-7, [id number], [id number] ####[facility]ORATORYCLIA [id number] [address] WBC Manual cnt (CSF) [#/Vol] 1 cells/uL Normal 0-5 [facility] Comment on above: Order Comment: Speci men Type: CEREBROSPINAL FLUID Performed By: #### 3 4563-7, [id number], [id number] ####[facility]ORATORYCLIA [id number] [address] Glucose CSF-mCncon 2 Glucose (CSF) [Mass/Vol] 92 mg/dL High 40-70 [facility] Comment on above: Order Comment: Speci men Type: CEREBROSPINAL FLUID Result Comment: Lumb ar CSF glucose values of healthy patients are approximately 60% of the plasma values and must always be compared with a concurrently measured plasma value for adequate clinical interpretation.References: 1. Glucose HK (GLUC3) [package insert V 12.0 Citizen Of [place]]. [employer], [place], [place]. September 2015. 2. Michelle Moore, Loki, H. (2015). Chapter 7: Glucose and Lactate. Marianela Rothman.(eds.), Cerebrospinal Fluid in Clinical Neurology. [place]: [employer]. Performed By: #### 2 880-3, 2342-4 ####[facility]ORATORYCLIA [id number] [address] Lactate (Bld) [Moles/Vol]on 06-07-2021 Lactate [Moles/Vol] 0.9 mmol/L Normal 0.5-2.2 [facility] Comment on above: Order Comment: Speci men Type: BLOOD SPECIMEN Performed By: #### 3 2693-4 ####[facility]ORATORYCLIA [id number] [address] Lipase SerPl-cCncon 06-07-19 22 Lipase [Catalytic activity/Vol] 35 U/L Normal 16-61 [facility] Comment on above: Order Comment: Speci men Type: BLOOD SPECIMEN Performed By: #### 3 040-3, PROCAL ####[facility]ORATORYCLIA [id number] [address] Magnesium SerPl-mCncon 06-07 Magnesium [Mass/Vol] 2.7 mg/dL High 1.7-2.3 [facility] Comment on above: Order Comment: Speci men Type: BLOOD SPECIMEN Performed By: #### 1 9123-9, 2777-1, 06262-2 ####[facility]ORATORYCLIA [id number] [address] PROCALCITONIN (LAB)on 2021 Procalcitonin [Mass/Vol] 0.13 ng/mL High <0.09 [facility] Comment on above: Order Comment: Speci men Type: BLOOD SPECIMEN Result Comment: For a guided interpretation of test results, please visit the Change in Procalcitonin Calculator, [email or web address]. Performed By: #### 3 040-3, PROCAL ####[facility]ORATORYCLIA [id number] [address] [place] Phosphate SerPl-mCncon 06-07 Phosphate [Mass/Vol] 1.9 mg/dL Low 2.7-4.8 [facility] Comment on above: Order Comment: Speci men Type: BLOOD SPECIMEN Performed By: #### 1 9123-9, 2777-1, 19122-8 ####[facility]ATORYCLIA [id number] [address] [place] Prot CSF-mCncon 06-07-2021 Protein (CSF) [Mass/Vol] 33 mg/dL Normal 15-45 [facility] Comment on above: Order Comment: Speci men Type: CEREBROSPINAL FLUID Performed By: #### 2 880-3, 2342-4 ####[facility]ORATORYCLIA [id number] [address] [place] SARS-CoV-2 RNA Resp Ql MEGAN+p robeon 06-07-2021 SARS-CoV-2 (COVID-19) RNA MEGAN+probe Ql (Resp) COVID 19 RESULT: SARS-CoV-2 (Agent of COVID-19) Not Detected by PCR. This test has been authorized by FDA under an Emergency Use Authorization (EUA). Normal [facility] Comment on above: Performed By: #### 9 4500-6 ####[facility]ORATORYCLIA [id number] [address] TYPE AND SCREENon 06-07-2021 ABO O Normal [facility] Comment on above: Order Comment: Speci men Type: BLOOD SPECIMEN Performed By: #### T SCR ####[facility] BANKCLIA [id number] [address] HISTORICAL AB SCR STATUS Negative Normal [facility] Comment on above: Order Comment: Speci men Type: BLOOD SPECIMEN Performed By: #### T SCR ####[facility] BANKCLIA [id number] [address] Rh Nom (Bld) Positive Normal [facility] Comment on above: Order Comment: Speci men Type: BLOOD SPECIMEN Performed By: #### T SCR ####[facility] BANKCLIA [id number] [address] TYPE AND SCREEN EXPIRATION 06/10/2021 23:59 Normal [facility] Comment on above: Order Comment: Speci men Type: BLOOD SPECIMEN Performed By: #### T SCR ####[facility] BANKCLIA [id number] [address] Vancomycin random [Mass/Vol] on 06-07-2021 Vancomycin [Mass/Vol] 16.5 ug/mL Normal 10.0-20.0 [facility] Comment on above: Order Comment: Speci men Type: BLOOD SPECIMEN Result Comment: Refe rence ranges and high/low indicator flags are provided as general guidelines only. The treating physician must determine appropriate target levels/dosing based on the specific clinical situation. Performed By: #### 4 091-5 ####[facility] LABORATORYCLIA [id number] [address] XR CHEST 1V FRONTAL PORTon 0 06-07-2021 XR CHEST 1V FRONTAL PORT Normal [facility] Basic metabolic 2000 panelon 06-06-2021 Anion gap [Moles/Vol] 11 mmol/L Normal 9-18 [facility] Comment on above: Order Comment: Speci men Type: BLOOD SPECIMEN Performed By: #### 2 4321-2, , 2776-05 ####[facility] LABORATORYCLIA [id number] [address] Calcium [Mass/Vol] 8.6 mg/dL Normal 8.5-10.2 [facility] Comment on above: Order Comment: Speci men Type: BLOOD SPECIMEN Performed By: #### 2 4321-2, , 2776-05 ####[facility] LABORATORYCLIA [id number] [address] STATES OF [facility] Chloride [Moles/Vol] 108 mmol/L High 97-105 [facility] Comment on above: Order Comment: Speci men Type: BLOOD SPECIMEN Performed By: #### 2 4321-2, , 2776-05 ####[facility] LABORATORYCLIA [id number] [address] CO2 [Moles/Vol] 25 mmol/L Normal 22-30 [facility] Comment on above: Order Comment: Speci men Type: BLOOD SPECIMEN Performed By: #### 2 4321-2, , 2776-05 ####[facility] LABORATORYCLIA [id number] [place] [id number] [place] Creatinine [Mass/Vol] 0.76 mg/dL Normal 0.73-1.22 [facility] Comment on above: Order Comment: Speci men Type: BLOOD SPECIMEN Performed By: #### 2 4321-2, , 2776-05 ####[facility] LABORATORYCLIA [id number] [place] [id number] [place] GFR/1.73 sq M.predicted MDRD (S/P/Bld) [Vol rate/Area] mL/min/{1.73_m2} Normal [facility] Comment on above: Order [...] #### 2 4321-2, , 2776-05 ####[facility] LABORATORYCLIA [id number] [place] [address] [place] Glucose [Mass/Vol] 116 mg/dL High 74-99 [facility] Comment on above: Order Comment: Speci men Type: BLOOD SPECIMEN Result Comment: The [place] [employer] (ADA) provides guidance for cutoff [...] Standards of Medical Care in Diabetes 2016, [place] [employer]. Diabetes Care. 2016.39(Suppl 1). Performed By: #### 2 4321-2, , 2776-05 ####[facility] LABORATORYCLIA [id number] [address] STATES OF [facility] Potassium [Moles/Vol] 3.5 mmol/L Low 3.7-5.1 [facility] Comment on above: Order Comment: Speci men Type: BLOOD SPECIMEN Performed By: #### 2 1-2, , 2776-05 ####[facility] LABORATORYCLIA [id number] [address] STATES [facility] Sodium [Moles/Vol] 144 mmol/L Normal 136-144 [facility] Comment on above: Order Comment: Speci men Type: BLOOD SPECIMEN Performed By: #### 2 1-2, , 2776-05 ####[facility] LABORATORYCLIA [id number] [address] STATES [facility] Urea nitrogen [Mass/Vol] 31 mg/dL High 9-24 [facility] Comment on above: Order Comment: Speci men Type: BLOOD SPECIMEN Performed By: #### 2 1-2, , 2776-05 ####[facility] LABORATORYCLIA [id number] [address] [place] CASE MANAGEMon 06-06-2021 CASE MANAGEM Normal [facility] CBC panel Auto (Bld)on 06-06 Erythrocyte distribution width (RBC) [Ratio] 15.8 % High 11.5-15.0 [facility] Comment on above: Order Comment: Speci men Type: BLOOD SPECIMEN Performed By: #### 5 8410-2 ####[facility] LABORATORYCLIA [id number] [address] Hematocrit (Bld) [Volume fraction] 39.5 % Normal 39.0-51.0 [facility] Comment on above: Order Comment: Speci men Type: BLOOD SPECIMEN Performed By: #### 5 8410-2 ####[facility] LABORATORYCLIA [id number] [address] Hemoglobin (Bld) [Mass/Vol] 12.2 g/dL Low 13.0-17.0 [facility] Comment on above: Order Comment: Speci men Type: BLOOD SPECIMEN Performed By: #### 5 8410-2 ####[facility] LABORATORYCLIA [id number] [address] MCH (RBC) [Entitic mass] 27.8 pg Normal 26.0-34.0 [facility] Comment on above: Order Comment: Speci men Type: BLOOD SPECIMEN Performed By: #### 5 8410-2 ####[facility] LABORATORYCLIA [id number] [address] MCHC (RBC) [Mass/Vol] 30.9 g/dL Normal 30.5-36.0 [facility] Comment on above: Order Comment: Speci men Type: BLOOD SPECIMEN Performed By: #### 5 8410-2 ####[facility] LABORATORYCLIA [id number] [address] MCV (RBC) [Entitic vol] 90.0 fL Normal 80.0-100.0 [facility] Comment on above: Order Comment: Speci men Type: BLOOD SPECIMEN Performed By: #### 5 8410-2 ####[facility] LABORATORYCLIA [id number] [address] Nucleated RBC (Bld) [#/Vol] 10*3/uL Normal <0.01 [facility] Comment on above: Order Comment: Speci men Type: BLOOD SPECIMEN Performed By: #### 5 8410-2 ####[facility] LABORATORYCLIA [id number] [address] Platelet mean volume (Bld) [Entitic vol] 10.4 fL Normal 9.0-12.7 [facility] Comment on above: Order Comment: Speci men Type: BLOOD SPECIMEN Performed By: #### 5 8410-2 ####[facility] LABORATORYCLIA [id number] [address] [place] Platelets (Bld) [#/Vol] 236 10*3/uL Normal 150-400 [facility] Comment on above: Order Comment: Speci men Type: BLOOD SPECIMEN Performed By: #### 5 8410-2 ####[facility] LABORATORYCLIA [id number] [address] RBC (Bld) [#/Vol] 4.39 10*6/uL Normal 4.20-6.00 [facility] Comment on above: Order Comment: Speci men Type: BLOOD SPECIMEN Performed By: #### 5 8410-2 ####[facility] LABORATORYCLIA [id number] [address] OF [facility] WBC (Bld) [#/Vol] 9.74 10*3/uL Normal 3.70-11.00 [facility] Comment on above: Order Comment: Speci men Type: BLOOD SPECIMEN Performed By: #### 5 8410-2 ####[facility] LABORATORYCLIA [id number] [address] OF [facility] CONSULT PROGon 06-06-2021 CONSULT PROG Normal [facility] CONSULT PROG Normal [facility] Magnesium SerPl-mCncon 06-06 Magnesium [Mass/Vol] 2.5 mg/dL High 1.7-2.3 [facility] Comment on above: Order Comment: Speci men Type: BLOOD SPECIMEN Performed By: #### 2 4321-2, 57102-9, 2777-1 ####[facility] LABORATORYCLIA [id number] [address] PT panel Coag (PPP)on 2021 INR Coag (PPP) [Relative time] 1.0 {INR} Normal 0.9-1.3 [facility] Comment on above: Order Comment: Speci men Type: BLOOD SPECIMEN Result Comment: Yris min K Antagonist (VKA) Therapeutic Range: INR 2 to 3 (Target INR of 2.5)Note: For patients treated with VKA drugs, such as warfarin, the [employer] 2012 Guideline recommends [...] al. Chest 2012, 141:7S-47SNishimura RA, et al. [facility] 2017, 70: 252-289 Performed By: #### 3 4528-0, 96950-5 ####[facility] LABORATORYCLIA [id number] [address] STATES OF [facility] PT Coag (PPP) [Time] 11.4 s Normal 9.7-13.0 [facility] Comment on above: Order Comment: Speci men Type: BLOOD SPECIMEN Performed By: #### 3 4528-0, 34726-2 ####[facility] LABORATORYCLIA [id number] [place] [address] [place] Phosphate SerPl-mCncon 06-06 Phosphate [Mass/Vol] 2.3 mg/dL Low 2.7-4.8 [facility] Comment on above: Order Comment: Speci men Type: BLOOD SPECIMEN Performed By: #### 2 4321-2, 54659-9, 2777-1 ####[facility] LABORATORYCLIA [id number] [address] [place] THROMBOGRAPH HEPARINASE PANE Kiel 06-06-2021 Clot angle after addition of heparinase TEG (Bld) [Angle] 70.2 degrees Normal 47.0-74.0 [facility] Comment on above: Order Comment: Speci men Type: BLOOD SPECIMEN Performed By: #### T EGHPP ####[facility] LABORATORYCLIA [id number] [address] Clot Lysis 30 Min post maximum clot amplitude TEG (Bld) [Length fraction] 0.0 % Normal 0.0-8.0 [facility] Comment on above: Order Comment: Speci men Type: BLOOD SPECIMEN Performed By: #### T EGHPP ####[facility] LABORATORYCLIA [id number] [address] Clotting time after addition of heparinase TEG (Bld) 5.7 minutes Normal 4.0-10.0 [facility] Comment on above: Order Comment: Speci men Type: BLOOD SPECIMEN Performed By: #### T EGHPP ####[facility] LABORATORYCLIA [id number] [address] Coagulation index TEG Qn (Bld) 1.2 Normal -4.6-3.2 [facility] Comment on above: Order Comment: Speci men Type: BLOOD SPECIMEN Result Comment: The Coagulation Index, a secondary parameter, is labeled by the quarter folder as for "research use only" and is used per the quarter folder's instructions. Its performance characteristics were determined by [facility]'s [facility] [place] in a manner consistent with CLIA requirements. This test has not been cleared by the U.S. Food and Drug Administration. Performed By: #### T EGHPP ####[facility] LABORATORYCLIA [id number] [address] Maximum clot firmness after addition of heparinase TEG (Bld) [Length] 64.0 mm Normal 51.0-75.0 [facility] Comment on above: Order Comment: Speci men Type: BLOOD SPECIMEN Performed By: #### T EGHPP ####[facility] LABORATORYCLIA [id number] [address] Vancomycin random [Mass/Vol] on 06-06-2021 Vancomycin [Mass/Vol] 17.4 ug/mL Normal 10.0-20.0 [facility] Comment on above: Order Comment: Speci men Type: BLOOD SPECIMEN Result Comment: Refe rence ranges and high/low indicator flags are provided as general guidelines only. The treating physician must determine appropriate target levels/dosing based on the specific clinical situation. Performed By: #### 4 091-5 ####[facility] LABORATORYCLIA [id number] [address] Vancomycin [Mass/Vol] 13.5 ug/mL Normal 10.0-20.0 [facility] Comment on above: Order Comment: Speci men Type: BLOOD SPECIMEN Result Comment: Refe rence ranges and high/low indicator flags are provided as general guidelines only. The treating physician must determine appropriate target levels/dosing based on the specific clinical situation. Performed By: #### 4 091-5 ####[facility] LABORATORYCLIA [id number] [address] aPTT PPPon 06-06-2021 aPTT Coag (PPP) [Time] 27.8 s Normal 23.0-32.4 [place] Comment on above: Order Comment: Speci men Type: BLOOD SPECIMEN Performed By: #### 3 4528-0, 97992-2 ####[facility]ORATORYCLIA [id number] [address] [place] Basic metabolic 2000 panelon 06-05-2021 Anion gap [Moles/Vol] 11 mmol/L Normal 9-18 [facility] Comment on above: Order Comment: Speci men Type: BLOOD SPECIMEN Performed By: #### 1 9123-9, 06077-6, 2777-1 ####[facility]ORATORYCLIA [id number] [address] [place] Calcium [Mass/Vol] 8.6 mg/dL Normal 8.5-10.2 [facility] Comment on above: Order Comment: Speci men Type: BLOOD SPECIMEN Performed By: #### 1 9123-9, 22095-8, 2776- ####[facility]ORATORYCLIA [id number] [address] Chloride [Moles/Vol] 108 mmol/L High 97-105 [facility] Comment on above: Order Comment: Speci men Type: BLOOD SPECIMEN Performed By: #### 1 9123-9, 71572-6, 2776- ####[facility]ORATORYCLIA [id number] [address] [place] CO2 [Moles/Vol] 25 mmol/L Normal 22-30 [facility] Comment on above: Order Comment: Speci men Type: BLOOD SPECIMEN Performed By: #### 1 9123-9, 37196-5, 2776- ####[facility]ORATORYCLIA [id number] [address] STATES OF [facility] Creatinine [Mass/Vol] 0.77 mg/dL Normal 0.73-1.22 [facility] Comment on above: Order Comment: Speci men Type: BLOOD SPECIMEN Performed By: #### 1 9123-9, 80157-2, 2776-05 ####[facility]ORATORYCLIA [id number] [address] [place] GFR/1.73 sq M.predicted MDRD (S/P/Bld) [Vol rate/Area] mL/min/{1.73_m2} Normal [facility] Comment on above: Order [...] actual GFR. Performed By: #### 1 9123-9, 21644-2, 2776-05 ####[facility] LABORATORYCLIA [id number] [place] [address] [place] Glucose [Mass/Vol] 96 mg/dL Normal 74-99 [facility] Comment on above: Order Comment: Speci men Type: BLOOD SPECIMEN Result Comment: The [place] [employer] (ADA) provides guidance for cutoff [...] Standards of Medical Care in Diabetes 2016, [place] [employer]. Diabetes Care. 2016.39(Suppl 1). Performed By: #### 1 9123-9, , 2776-05 ####[facility]ORATORYCLIA [id number] [place] [address] [place] Potassium [Moles/Vol] 3.9 mmol/L Normal 3.7-5.1 [facility] Comment on above: Order Comment: Speci men Type: BLOOD SPECIMEN Performed By: #### 1 9123-9, , 2776-05 ####[facility]ORATORYCLIA [id number] [place] [address] [place] Sodium [Moles/Vol] 144 mmol/L Normal 136-144 [facility] Comment on above: Order Comment: Speci men Type: BLOOD SPECIMEN Performed By: #### 1 9123-9, 35931-4, 2776-05 ####[facility]ORATORYCLIA [id number] [place] [address] [place] Urea nitrogen [Mass/Vol] 26 mg/dL High 9-24 [facility] Comment on above: Order Comment: Speci men Type: BLOOD SPECIMEN Performed By: #### 1 9123-9, 36228-0, 2777-1 ####[facility]ORATORYCLIA [id number] [address] CBC panel Auto (Bld)on 06-05 Erythrocyte distribution width (RBC) [Ratio] 15.9 % High 11.5-15.0 [facility] Comment on above: Order Comment: Speci men Type: BLOOD SPECIMEN Performed By: #### 5 8410-2 ####[facility]ORATORYCLIA [id number] [address] Hematocrit (Bld) [Volume fraction] 39.6 % Normal 39.0-51.0 [facility] Comment on above: Order Comment: Speci men Type: BLOOD SPECIMEN Performed By: #### 5 8410-2 ####[facility]ORATORYCLIA [id number] [address] Hemoglobin (Bld) [Mass/Vol] 12.3 g/dL Low 13.0-17.0 [facility] Comment on above: Order Comment: Speci men Type: BLOOD SPECIMEN Performed By: #### 5 8410-2 ####[facility]ORATORYCLIA [id number] [address] MCH (RBC) [Entitic mass] 28.1 pg Normal 26.0-34.0 [facility] Comment on above: Order Comment: Speci men Type: BLOOD SPECIMEN Performed By: #### 5 8410-2 ####[facility]ORATORYCLIA [id number] [address] MCHC (RBC) [Mass/Vol] 31.1 g/dL Normal 30.5-36.0 [facility] Comment on above: Order Comment: Speci men Type: BLOOD SPECIMEN Performed By: #### 5 8410-2 ####[facility]ORATORYCLIA [id number] [place] [address] [place] MCV (RBC) [Entitic vol] 90.4 fL Normal 80.0-100.0 [facility] Comment on above: Order Comment: Speci men Type: BLOOD SPECIMEN Performed By: #### 5 8410-2 ####[facility] LABORATORYCLIA [id number] [address] Nucleated RBC (Bld) [#/Vol] 10*3/uL Normal <0.01 [facility] Comment on above: Order Comment: Speci men Type: BLOOD SPECIMEN Performed By: #### 5 8410-2 ####[facility]ORATORYCLIA [id number] [address] Platelet mean volume (Bld) [Entitic vol] 10.5 fL Normal 9.0-12.7 [facility] Comment on above: Order Comment: Speci men Type: BLOOD SPECIMEN Performed By: #### 5 8410-2 ####[facility]ATORYCLIA [id number] [address] Platelets (Bld) [#/Vol] 224 10*3/uL Normal 150-400 [facility] Comment on above: Order Comment: Speci men Type: BLOOD SPECIMEN Performed By: #### 5 8410-2 ####[facility]ORATORYCLIA [id number] [address] RBC (Bld) [#/Vol] 4.38 10*6/uL Normal 4.20-6.00 [facility] Comment on above: Order Comment: Speci men Type: BLOOD SPECIMEN Performed By: #### 5 8410-2 ####[facility]ORATORYCLIA [id number] [address] WBC (Bld) [#/Vol] 9.66 10*3/uL Normal 3.70-11.00 [facility] Comment on above: Order Comment: Speci men Type: BLOOD SPECIMEN Performed By: #### 5 8410-2 ####[facility]ORATORYCLIA [id number] [address] CONSULT PROGon 06-05-2021 CONSULT PROG Normal [facility] Gas and Carbon monoxide pane l (BldV)on 06-05-2021 Base excess Calc (BldV) [Moles/Vol] 1.8 mmol/L Normal 0-2 [facility] Comment on above: Order Comment: Speci men Type: VENOUS BLOOD SPECIMEN Performed By: #### 2 4344-4 ####[facility] LABORATORYCLIA [id number] [address] Body temperature 100.4 [degF] Normal [facility] Comment on above: Order Comment: Speci men Type: VENOUS BLOOD SPECIMEN Performed By: #### 2 4344-4 ####[facility]ORATORYCLIA [id number] [address] CALCIUM IONIZED, PH CORRECTED 1.21 mmol/L Normal 1.08-1.30 [facility] Comment on above: Order Comment: Speci men Type: VENOUS BLOOD SPECIMEN Performed By: #### 2 4344-4 ####[facility]ATORYCLIA [id number] [address] Calcium.ionized (BldV) [Mass/Vol] 1.19 mmol/L Normal 1.08-1.30 [facility] Comment on above: Order Comment: Speci men Type: VENOUS BLOOD SPECIMEN Performed By: #### 2 4344-4 ####[facility]ORATORYCLIA [id number] [address] Carboxyhemoglobin (BldV) [Mass fraction] 1.0 % Normal 0.0-2.0 [facility] Comment on above: Order Comment: Speci men Type: VENOUS BLOOD SPECIMEN Result Comment: Carb oxyhemoglobin Reference Range for Smokers: 2.0-8.0% Performed By: #### 2 4344-4 ####[facility]ORATORYCLIA [id number] [address] CO2 (BldV) [Partial pressure] 41 mm[Hg] Low 42-55 [facility] Comment on above: Order Comment: Speci men Type: VENOUS BLOOD SPECIMEN Performed By: #### 2 4344-4 ####[facility]ATORYCLIA [id number] [address] CO2 [Moles/Vol] 23.4 mmol/L Low 25-29 [facility] Comment on above: Order Comment: Speci men Type: VENOUS BLOOD SPECIMEN Performed By: #### 2 4344-4 ####[facility]ATORYCLIA [id number] [address] CO2 adjusted to patient's actual temperature (BldV) [Partial pressure] 43 mmHg Normal 42-55 [facility] Comment on above: Order Comment: Speci men Type: VENOUS BLOOD SPECIMEN Performed By: #### 2 4344-4 ####[facility]ORYCLIA [id number] [address] Glucose [Mass/Vol] 101 mg/dL Normal 60-105 [facility] Comment on above: Order Comment: Speci men Type: VENOUS BLOOD SPECIMEN Performed By: #### 2 4344-4 ####[facility]ATORYCLIA [id number] [address] HCO3 (Bld) [Moles/Vol] 26.0 mmol/L Normal 24-28 [facility] Comment on above: Order Comment: Speci men Type: VENOUS BLOOD SPECIMEN Performed By: #### 2 4344-4 ####[facility]ORYCLIA [id number] [address] Hematocrit (Bld) [Volume fraction] 38.4 % Low 39.0-51.0 [facility] Comment on above: Order Comment: Speci men Type: VENOUS BLOOD SPECIMEN Performed By: #### 2 4344-4 ####[facility]ATORYCLIA [id number] [address] Hemoglobin (Bld) [Mass/Vol] 12.5 g/dL Low 13.0-17.0 [facility] Comment on above: Order Comment: Speci men Type: VENOUS BLOOD SPECIMEN Performed By: #### 2 4344-4 ####[facility]ORATORYCLIA [id number] [place] [address] [facility] [place] Methemoglobin (Bld) [Mass fraction] % Normal 0.0-1.5 [facility] Comment on above: Order Comment: Speci men Type: VENOUS BLOOD SPECIMEN Performed By: #### 2 4344-4 ####[facility]ORATORYCLIA [id number] [place] [address] [facility] [place] O2 THERAPY Ventilator Normal [facility] Comment on above: Order Comment: Speci men Type: VENOUS BLOOD SPECIMEN Performed By: #### 2 4344-4 ####[facility]ORATORYCLIA [id number] [place] [address] [facility] Oxygen (BldV) [Partial pressure] 44 mm[Hg] Normal 35-45 [facility] Comment on above: Order Comment: Speci men Type: VENOUS BLOOD SPECIMEN Performed By: #### 2 4344-4 ####[facility]ORATORYCLIA [id number] [place] [address] [facility] Oxygen adjusted to patient's actual temperature (BldV) [Partial pressure] 46.8 mmHg High 35-45 [facility] Comment on above: Order Comment: Speci men Type: VENOUS BLOOD SPECIMEN Performed By: #### 2 4344-4 ####[facility]ORATORYCLIA [id number] [place] [address] [facility] [place] Oxygen saturation in Blood 76.5 % Normal 60-85 [facility] Comment on above: Order Comment: Speci men Type: VENOUS BLOOD SPECIMEN Performed By: #### 2 4344-4 ####[facility] [facility]ATORYCLIA [id number] [place] [address] [facility] Oxyhemoglobin (BldV) [Mass fraction] 75 % Normal 60-85 [facility] Comment on above: Order Comment: Speci men Type: VENOUS BLOOD SPECIMEN Performed By: #### 2 4344-4 ####[facility] [facility]ORATORYCLIA [id number] [address] pH (BldV) 7.42 [pH] Normal 7.32-7.42 [facility] Comment on above: Order Comment: Speci men Type: VENOUS BLOOD SPECIMEN Performed By: #### 2 4344-4 ####[facility]ATORYCLIA [id number] [address] pH adjusted to patient's actual temperature (BldV) 7.40 Normal 7.32-7.42 [facility] Comment on above: Order Comment: Speci men Type: VENOUS BLOOD SPECIMEN Performed By: #### 2 4344-4 ####[facility]ATORYCLIA [id number] [address] [place] Potassium [Moles/Vol] 3.7 mmol/L Normal 3.5-5.0 [facility] Comment on above: Order Comment: Speci men Type: VENOUS BLOOD SPECIMEN Performed By: #### 2 4344-4 ####[facility]ATORYCLIA [id number] [address] STATES OF [facility] Sodium [Moles/Vol] 141 mmol/L Normal 136-144 [facility] Comment on above: Order Comment: Speci men Type: VENOUS BLOOD SPECIMEN Performed By: #### 2 4344-4 ####[facility]ORATORYCLIA [id number] [address] [place] Magnesium SerPl-mCncon 06-05 Magnesium [Mass/Vol] 2.3 mg/dL Normal 1.7-2.3 [facility] Comment on above: Order Comment: Speci men Type: BLOOD SPECIMEN Performed By: #### 1 9123-9, 05984-3, 2777-1 ####[facility]ATORYCLIA [id number] [address] [place] Phosphate SerPl-mCncon 06-05 Phosphate [Mass/Vol] 2.9 mg/dL Normal 2.7-4.8 [facility] Comment on above: Order Comment: Speci men Type: BLOOD SPECIMEN Performed By: #### 1 9123-9, 39472-2, 2777-1 ####[facility] LABORATORYCLIA [id number] [place] [id number] [place] Vancomycin random [Mass/Vol] on 06-05-2021 Vancomycin [Mass/Vol] 23.2 ug/mL High 10.0-20.0 [facility] Comment on above: Order Comment: Speci men Type: BLOOD SPECIMEN Result Comment: Refe rence ranges and high/low indicator flags are provided as general guidelines only. The treating physician must determine appropriate target levels/dosing based on the specific clinical situation. Performed By: #### 4 091-5 ####[facility]ORATORYCLIA [id number] [place] [address] [place] (1,3)-K-H-FHPPKHkz 2 (1,3) B-D GLUCAN <31 Normal <60 [facility] Comment on above: Order Comment: Speci men Type: BLOOD SPECIMEN Performed By: #### B DGLUC ####[facility] LABCLIA [id number] [place] AVVennliK [id number] [address] [place] (1,3) B-D GLUCAN, QUAL Negative Normal NEGAT [place] Comment on above: Order Comment: Speci men Type: BLOOD SPECIMEN Result Comment: Cert ain fungi, such as the genus Cryptococcus which produces very low levels of (1,3)-bpgi-H-pyemyw, may not result in serum (1,3)-zhae-F-ciyurc sufficiently elevated so as to be detected by the assay. Infections with fungi of the order Mucorales such as Absidia, Mucor and Rhizopus which are not known to produce (1,3)-sjpr-G-cysicm, are also observed to yield low serum (1,3)-uogn-X-jcfsbn titers.In addition, the yeast phase of Blastomyces dermatitidis produces little (1,3)-dqks-O-rmgwpq and may not be detected by the assay. Performed By: #### B DGLUC ####[facility]FER[facility] LABCLIA [id number] [place] AVEDESK [id number] [address] [place] ALLIED HEALTHon 06-04-2021 ALLIED HEALTH Normal [facility] ALLIED HEALTH Normal [facility] ARTERIAL BLOOD GASESon 06-04 Base excess Calc (Bld) [Moles/Vol] 3 mmol/L High 0-2 [facility] Comment on above: Order Comment: Speci men Type: ARTERIAL BLOOD SPECIMEN Performed By: #### A LLBG ####[facility]ORATORYCLIA [id number] [address] Body temperature 98.06 [degF] Normal [facility] Comment on above: Order Comment: Speci men Type: ARTERIAL BLOOD SPECIMEN Performed By: #### A LLBG ####[facility]ORATORYCLIA [id number] [address] [place] CALCIUM IONIZED, PH CORRECTED 1.19 mmol/L Normal 1.08-1.30 [facility] Comment on above: Order Comment: Speci men Type: ARTERIAL BLOOD SPECIMEN Performed By: #### A LLBG ####[facility]ORATORYCLIA [id number] [address] [place] Calcium.ionized (BldV) [Mass/Vol] 1.14 mmol/L Normal 1.08-1.30 [facility] Comment on above: Order Comment: Speci men Type: ARTERIAL BLOOD SPECIMEN Performed By: #### A LLBG ####[facility]ATORYCLIA [id number] [address] [place] Carboxyhemoglobin (BldA) [Mass fraction] 1.2 % Normal 0.0-2.0 [facility] Comment on above: Order Comment: Speci men Type: ARTERIAL BLOOD SPECIMEN Result Comment: Carb oxyhemoglobin Reference Range for Smokers: 2.0-8.0% Performed By: #### A LLBG ####[facility]ATORYCLIA [id number] [address] [place] CO2 (Bld) [Partial pressure] 35 mm Hg Low 36-46 [facility] Comment on above: Order Comment: Speci men Type: ARTERIAL BLOOD SPECIMEN Performed By: #### A LLBG ####[facility]ORYCLIA [id number] [address] CO2 [Moles/Vol] 23.2 mmol/L Normal 22-28 [facility] Comment on above: Order Comment: Speci men Type: ARTERIAL BLOOD SPECIMEN Performed By: #### A LLBG ####[facility]ATORYCLIA [id number] [address] CO2 adjusted to patient's actual temperature (Bld) [Partial pressure] 34 mmHg Low 36-46 [facility] Comment on above: Order Comment: Speci men Type: ARTERIAL BLOOD SPECIMEN Performed By: #### A LLBG ####[facility]ATORYCLIA [id number] [address] Glucose [Mass/Vol] 115 mg/dL High 60-105 [facility] Comment on above: Order Comment: Speci men Type: ARTERIAL BLOOD SPECIMEN Performed By: #### A LLBG ####[facility]ATORYCLIA [id number] [address] HCO3 (Bld) [Moles/Vol] 26 mmol/L Normal 22-26 [place] Comment on above: Order Comment: Speci men Type: ARTERIAL BLOOD SPECIMEN Performed By: #### A LLBG ####[facility]ORATORYCLIA [id number] [address] OF [facility] Hematocrit (Bld) [Volume fraction] 35.3 % Low 39.0-51.0 [facility] Comment on above: Order Comment: Speci men Type: ARTERIAL BLOOD SPECIMEN Performed By: #### A LLBG ####[facility]ORYCLIA [id number] [address] Hemoglobin (Bld) [Mass/Vol] 11.5 g/dL Low 13.0-17.0 [facility] Comment on above: Order Comment: Speci men Type: ARTERIAL BLOOD SPECIMEN Performed By: #### A LLBG ####[facility]ORATORYCLIA [id number] [place], [place] [id number] [place] [address] Methemoglobin (Bld) [Mass fraction] % Normal 0.0-1.5 [facility] Comment on above: Order Comment: Speci men Type: ARTERIAL BLOOD SPECIMEN Performed By: #### A LLBG ####[facility]ATORYCLIA [id number] [address] [place] O2 THERAPY Ventilator Normal [facility] Comment on above: Order Comment: Speci men Type: ARTERIAL BLOOD SPECIMEN Performed By: #### A LLBG ####[facility]ATORYCLIA [id number] [address] Oxygen (Bld) [Partial pressure] 66 mm Hg Low 85-95 [facility] Comment on above: Order Comment: Speci men Type: ARTERIAL BLOOD SPECIMEN Performed By: #### A LLBG ####[facility]ORYCLIA [id number] [address] Oxygen adjusted to patient's actual temperature (Bld) [Partial pressure] 64.3 mmHg Low 85-95 [facility] Comment on above: Order Comment: Speci men Type: ARTERIAL BLOOD SPECIMEN Performed By: #### A LLBG ####[facility]ORATORYCLIA [id number] [address] OXYGEN SATURATION, ARTERIAL 95 % Normal 95-98 [facility] Comment on above: Order Comment: Speci men Type: ARTERIAL BLOOD SPECIMEN Performed By: #### A LLBG ####[facility]ATORYCLIA [id number] [address] Oxyhemoglobin (BldA) [Mass fraction] 93 % Low 95-98 [facility] Comment on above: Order Comment: Speci men Type: ARTERIAL BLOOD SPECIMEN Performed By: #### A LLBG ####[facility]ORYCLIA [id number] [address] [place] pH (Bld) 7.49 [pH] High 7.35-7.45 [facility] Comment on above: Order Comment: Speci men Type: ARTERIAL BLOOD SPECIMEN Performed By: #### A LLBG ####[facility] LABORATORYCLIA [id number] [address] pH adjusted to patient's actual temperature (Bld) 7.49 High 7.35-7.45 [facility] Comment on above: Order Comment: Speci men Type: ARTERIAL BLOOD SPECIMEN Performed By: #### A LLBG ####[facility]ORATORYCLIA [id number] [address] Potassium [Moles/Vol] 2.8 mmol/L Low 3.5-5.0 [facility] Comment on above: Order Comment: Speci men Type: ARTERIAL BLOOD SPECIMEN Performed By: #### A LLBG ####[facility] LABORATORYCLIA [id number] [address] Bas Metab 2000 Pnl SerPlon 0 06-04-2021 Sodium [Moles/Vol] 143 mmol/L Normal 136-144 [facility] Comment on above: Order Comment: Speci men Type: BLOOD SPECIMEN Performed By: #### 2 777-1, , 62289-3 ####[facility] LABORATORYCLIA [id number] [address] Order Comment: Speci men Type: ARTERIAL BLOOD SPECIMEN Performed By: #### A LLBG ####[facility]ORATORYCLIA [id number] [address] Basic metabolic 2000 panelon 06-04-2021 Anion gap [Moles/Vol] 11 mmol/L Normal 9-18 [facility] Comment on above: Order Comment: Speci men Type: BLOOD SPECIMEN Performed By: #### 2 777-1, , ####[facility]ORYCLIA [id number] [address] Calcium [Mass/Vol] 8.5 mg/dL Normal 8.5-10.2 [facility] Comment on above: Order Comment: Speci men Type: BLOOD SPECIMEN Performed By: #### 2 777-1, , ####[facility]ORATORYCLIA [id number] [address] Chloride [Moles/Vol] 107 mmol/L High 97-105 [facility] Comment on above: Order Comment: Speci men Type: BLOOD SPECIMEN Performed By: #### 2 777-1, , ####[facility]ORATORYCLIA [id number] [address] CO2 [Moles/Vol] 25 mmol/L Normal 22-30 [facility] Comment on above: Order Comment: Speci men Type: BLOOD SPECIMEN Performed By: #### 2 777-1, , ####[facility]ATORYCLIA [id number] [address] Creatinine [Mass/Vol] 0.77 mg/dL Normal 0.73-1.22 [facility] Comment on above: Order Comment: Speci men Type: BLOOD SPECIMEN Performed By: #### 2 777-1, , ####[facility]ORATORYCLIA [id number] [address] [place] GFR/1.73 sq M.predicted MDRD (S/P/Bld) [Vol rate/Area] mL/min/{1.73_m2} Normal [facility] Comment on above: Order [...] GFR. Performed By: #### 2 777-1, , ####[facility]ORATORYCLIA [id number] [place] [address] [place] Glucose [Mass/Vol] 107 mg/dL High 74-99 [facility] Comment on above: Order Comment: Speci men Type: BLOOD SPECIMEN Result Comment: The [place] [employer] (ADA) provides guidance for cutoff [...] Standards of Medical Care in Diabetes 2016, [place] [employer]. Diabetes Care. 2016.39(Suppl 1). Performed By: #### 2 777-1, , ####[facility]ORATORYCLIA [id number] [place] [address] [place] Potassium [Moles/Vol] 3.1 mmol/L Low 3.7-5.1 [facility] Comment on above: Order Comment: Speci men Type: BLOOD SPECIMEN Performed By: #### 2 777-1, , ####[facility]ATORYCLIA [id number] [address] [place] Urea nitrogen [Mass/Vol] 19 mg/dL Normal 9-24 [facility] Comment on above: Order Comment: Speci men Type: BLOOD SPECIMEN Performed By: #### 2 777-1, , ####[facility]ATORYCLIA [id number] [address] [place] CBC panel Auto (Bld)on 06-04 Erythrocyte distribution width (RBC) [Ratio] 15.8 % High 11.5-15.0 [facility] Comment on above: Order Comment: Speci men Type: BLOOD SPECIMEN Performed By: #### 5 8410-2 ####[facility]ATORYCLIA [id number] [address] Hematocrit (Bld) [Volume fraction] 36.9 % Low 39.0-51.0 [facility] Comment on above: Order Comment: Speci men Type: BLOOD SPECIMEN Performed By: #### 5 8410-2 ####[facility]ATORYCLIA [id number] [address] Hemoglobin (Bld) [Mass/Vol] 11.2 g/dL Low 13.0-17.0 [facility] Comment on above: Order Comment: Speci men Type: BLOOD SPECIMEN Performed By: #### 5 8410-2 ####[facility]ATORYCLIA [id number] [address] MCH (RBC) [Entitic mass] 27.3 pg Normal 26.0-34.0 [facility] Comment on above: Order Comment: Speci men Type: BLOOD SPECIMEN Performed By: #### 5 8410-2 ####[facility]ATORYCLIA [id number] [address] MCHC (RBC) [Mass/Vol] 30.4 g/dL Low 30.5-36.0 [facility] Comment on above: Order Comment: Speci men Type: BLOOD SPECIMEN Performed By: #### 5 8410-2 ####[facility]ATORYCLIA [id number] [address] MCV (RBC) [Entitic vol] 89.8 fL Normal 80.0-100.0 [facility] Comment on above: Order Comment: Speci men Type: BLOOD SPECIMEN Performed By: #### 5 8410-2 ####[facility]ATORYCLIA [id number] [address] Nucleated RBC (Bld) [#/Vol] 10*3/uL Normal <0.01 [facility] Comment on above: Order Comment: Speci men Type: BLOOD SPECIMEN Performed By: #### 5 8410-2 ####[facility]ATORYCLIA [id number] [address] Platelet mean volume (Bld) [Entitic vol] 10.7 fL Normal 9.0-12.7 [facility] Comment on above: Order Comment: Speci men Type: BLOOD SPECIMEN Performed By: #### 5 8410-2 ####[facility]ORATORYCLIA [id number] [address] OF [facility] Platelets (Bld) [#/Vol] 174 10*3/uL Normal 150-400 [facility] Comment on above: Order Comment: Speci men Type: BLOOD SPECIMEN Performed By: #### 5 8410-2 ####[facility]ORYCLIA [id number] [address] RBC (Bld) [#/Vol] 4.11 10*6/uL Low 4.20-6.00 [facility] Comment on above: Order Comment: Speci men Type: BLOOD SPECIMEN Performed By: #### 5 8410-2 ####[facility]ORATORYCLIA [id number] [address] WBC (Bld) [#/Vol] 8.29 10*3/uL Normal 3.70-11.00 [facility] Comment on above: Order Comment: Speci men Type: BLOOD SPECIMEN Performed By: #### 5 8410-2 ####[facility]ATORYCLIA [id number] [address] CONSULT PROGon 06-04-2021 CONSULT PROG Normal [facility] CT BRAIN WO IVCONon 06-04-[address] BRAIN WO IVCON Normal [facility] CT CHEST W IVCON PEon 2021 CT CHEST W IVCON PE Normal [facility] Magnesium SerPl-mCncon 06-04 Magnesium [Mass/Vol] 2.2 mg/dL Normal 1.7-2.3 [facility] Comment on above: Order Comment: Speci men Type: BLOOD SPECIMEN Performed By: #### 2 777-1, 82724-9, 52649-8 ####[facility]ORATORYCLIA [id number] [address] STATES OF [facility] Natriuretic peptide.B prohormone N-Terminal [Mass/Vol] 229 pg/mL High <125 [facility] Comment on above: Order Comment: Speci men Type: BLOOD SPECIMEN Performed By: #### 3 3762-6, 4091-5 ####[facility]ATORYCLIA [id number] [address] STATES OF [facility] Phosphate SerPl-ncon 06-04 Phosphate [Mass/Vol] 2.0 mg/dL Low 2.7-4.8 [facility] Comment on above: Order Comment: Speci men Type: BLOOD SPECIMEN Performed By: #### 2 777-1, 30694-7, 22174-1 ####[facility]ATORYCLIA [id number] [address] Vancomycin random [Mass/Vol] on 06-04-2021 Vancomycin [Mass/Vol] 35.2 ug/mL High 10.0-20.0 [facility] Comment on above: Order Comment: Speci men Type: BLOOD SPECIMEN Result Comment: Refe rence ranges and high/low indicator flags are provided as general guidelines only. The treating physician must determine appropriate target levels/dosing based on the specific clinical situation. Performed By: #### 3 3762-6, 4091-5 ####[facility]ORATORYCLIA [id number] [address] [place] XR ABDOMEN 1V SUPINEon 06-04 XR ABDOMEN 1V SUPINE Normal [facility] ALLIED HEALTHon 06-03-2021 ALLIED HEALTH Normal [facility] ARTERIAL BLOOD GASESon 06-03 Base excess Calc (Bld) [Moles/Vol] 5 mmol/L High 0-2 [facility] Comment on above: Order Comment: Speci men Type: ARTERIAL BLOOD SPECIMEN Performed By: #### A LLBG ####[facility]ORATORYCLIA [id number] [address] Body temperature 99.5 [degF] Normal [facility] Comment on above: Order Comment: Speci men Type: ARTERIAL BLOOD SPECIMEN Performed By: #### A LLBG ####[facility]ATORYCLIA [id number] [address] CALCIUM IONIZED, PH CORRECTED 1.18 mmol/L Normal 1.08-1.30 [facility] Comment on above: Order Comment: Speci men Type: ARTERIAL BLOOD SPECIMEN Performed By: #### A LLBG ####[facility]ATORYCLIA [id number] [address] Calcium.ionized (BldV) [Mass/Vol] 1.16 mmol/L Normal 1.08-1.30 [facility] Comment on above: Order Comment: Speci men Type: ARTERIAL BLOOD SPECIMEN Performed By: #### A LLBG ####[facility]ATORYCLIA [id number] [address] Carboxyhemoglobin (BldA) [Mass fraction] 1.2 % Normal 0.0-2.0 [facility] Comment on above: Order Comment: Speci men Type: ARTERIAL BLOOD SPECIMEN Result Comment: Carb oxyhemoglobin Reference Range for Smokers: 2.0-8.0% Performed By: #### A LLBG ####[facility]ORATORYCLIA [id number] [address] CO2 (Bld) [Partial pressure] 45 mm Hg Normal 36-46 [facility] Comment on above: Order Comment: Speci men Type: ARTERIAL BLOOD SPECIMEN Performed By: #### A LLBG ####[facility]ORYCLIA [id number] [address] CO2 [Moles/Vol] 26.9 mmol/L Normal 22-28 [facility] Comment on above: Order Comment: Speci men Type: ARTERIAL BLOOD SPECIMEN Performed By: #### A LLBG ####[facility]ORYCLIA [id number] [address] CO2 adjusted to patient's actual temperature (Bld) [Partial pressure] 47 mmHg High 36-46 [facility] Comment on above: Order Comment: Speci men Type: ARTERIAL BLOOD SPECIMEN Performed By: #### A LLBG ####[facility]ORYCLIA [id number] [address] Glucose [Mass/Vol] 141 mg/dL High 60-105 [facility] Comment on above: Order Comment: Speci men Type: ARTERIAL BLOOD SPECIMEN Performed By: #### A LLBG ####[facility]ORYCLIA [id number] [address] HCO3 (Bld) [Moles/Vol] 30 mmol/L High 22-26 [place] Comment on above: Order Comment: Speci men Type: ARTERIAL BLOOD SPECIMEN Performed By: #### A LLBG ####[facility]ATORYCLIA [id number] [address] Hematocrit (Bld) [Volume fraction] 35.8 % Low 39.0-51.0 [facility] Comment on above: Order Comment: Speci men Type: ARTERIAL BLOOD SPECIMEN Performed By: #### A LLBG ####[facility]ORYCLIA [id number] [address] Hemoglobin (Bld) [Mass/Vol] 11.6 g/dL Low 13.0-17.0 [facility] Comment on above: Order Comment: Speci men Type: ARTERIAL BLOOD SPECIMEN Performed By: #### A LLBG ####[facility]ORYCLIA [id number] [address] Methemoglobin (Bld) [Mass fraction] % Normal 0.0-1.5 [facility] Comment on above: Order Comment: Speci men Type: ARTERIAL BLOOD SPECIMEN Performed By: #### A LLBG ####[facility]ORATORYCLIA [id number] [place], [place] [address] [place] [address] [place] O2 THERAPY Ventilator Normal [facility] Comment on above: Order Comment: Speci men Type: ARTERIAL BLOOD SPECIMEN Performed By: #### A LLBG ####[facility]ATORYCLIA [id number] [place], [place] [id number] [place] [address] [place] Oxygen (Bld) [Partial pressure] 69 mm Hg Low 85-95 [facility] Comment on above: Order Comment: Speci men Type: ARTERIAL BLOOD SPECIMEN Performed By: #### A LLBG ####[facility]ORYCLIA [id number] [address] Oxygen adjusted to patient's actual temperature (Bld) [Partial pressure] 70.8 mmHg Low 85-95 [facility] Comment on above: Order Comment: Speci men Type: ARTERIAL BLOOD SPECIMEN Performed By: #### A LLBG ####[facility]ATORYCLIA [id number] [address] OXYGEN SATURATION, ARTERIAL 94 % Low 95-98 [facility] Comment on above: Order Comment: Speci men Type: ARTERIAL BLOOD SPECIMEN Performed By: #### A LLBG ####[facility]ATORYCLIA [id number] [address] Oxyhemoglobin (BldA) [Mass fraction] 93 % Low 95-98 [facility] Comment on above: Order Comment: Speci men Type: ARTERIAL BLOOD SPECIMEN Performed By: #### A LLBG ####[facility]ATORYCLIA [id number] [address] OF [place] pH (Bld) 7.43 [pH] Normal 7.35-7.45 [facility] Comment on above: Order Comment: Speci men Type: ARTERIAL BLOOD SPECIMEN Performed By: #### A LLBG ####[facility]ORYCLIA [id number] [address] pH adjusted to patient's actual temperature (Bld) 7.43 Normal 7.35-7.45 [facility] Comment on above: Order Comment: Speci men Type: ARTERIAL BLOOD SPECIMEN Performed By: #### A LLBG ####[facility]ATORYCLIA [id number] [address] STATES [facility] Potassium [Moles/Vol] 3.1 mmol/L Low 3.5-5.0 [facility] Comment on above: Order Comment: Speci men Type: ARTERIAL BLOOD SPECIMEN Performed By: #### A LLBG ####[facility]ORYCLIA [id number] [address] Sodium [Moles/Vol] 145 mmol/L High 136-144 [facility] Comment on above: Order Comment: Speci men Type: ARTERIAL BLOOD SPECIMEN Performed By: #### A LLBG ####[facility]ATORYCLIA [id number] [address] ASPERGILLUS GALACTOMANNAN SE RUMon 06-03-2021 Galactomannan Ag IA Ql Negative Normal NEGAT [place] Comment on above: Order Comment: Speci men [...] is suspected. Performed By: #### A SGALS ####[facility] LABCLIA [id number] [place] [address] [place] Galactomannan Ag IA Qn <0.50 Normal [place] Comment on above: Order Comment: Speci men Type: BLOOD SPECIMEN Result Comment: Inde x Values are Interpreted as Follows:Negative specimens <0.50Positive specimens >=0.50 Performed By: #### A SGALS ####[facility] LABCLIA [id number] [facility] [address] [address] [place] Basic metabolic 2000 panelon 06-03-2021 Anion gap [Moles/Vol] 8 mmol/L Low 9-18 [facility] Comment on above: Order Comment: Speci men Type: BLOOD SPECIMEN Performed By: #### 1 9123-9, 27711-04, 43935-5 ####[facility]ATORYCLIA [id number] [address] STATES OF [facility] Calcium [Mass/Vol] 8.0 mg/dL Low 8.5-10.2 [facility] Comment on above: Order Comment: Speci men Type: BLOOD SPECIMEN Performed By: #### 1 9123-9, 2776-05, 06728-5 ####[facility]ORATORYCLIA [id number] [address] OF [facility] Chloride [Moles/Vol] 110 mmol/L High 97-105 [facility] Comment on above: Order Comment: Speci men Type: BLOOD SPECIMEN Performed By: #### 1 9123-9, 2776-05, 01408-7 ####[facility]ATORYCLIA [id number] [address] STATES OF [facility] CO2 [Moles/Vol] 28 mmol/L Normal 22-30 [facility] Comment on above: Order Comment: Speci men Type: BLOOD SPECIMEN Performed By: #### 1 9123-9, 2776-05, 62295-9 ####[facility]ATORYCLIA [id number] [address] [place] Creatinine [Mass/Vol] 0.75 mg/dL Normal 0.73-1.22 [facility] Comment on above: Order Comment: Speci men Type: BLOOD SPECIMEN Performed By: #### 1 9123-9, 2777, 58795-2 ####[facility]ORYCLIA [id number] [address] [place] GFR/1.73 sq M.predicted MDRD (S/P/Bld) [Vol rate/Area] mL/min/{1.73_m2} Normal [facility] Comment on above: Order [...] GFR. Performed By: #### 1 9123-9, 2777-, 04806-6 ####[facility]ORATORYCLIA [id number] [place] [address] [place] Glucose [Mass/Vol] 141 mg/dL High 74-99 [facility] Comment on above: Order Comment: Speci men Type: BLOOD SPECIMEN Result Comment: The [place] [employer] (ADA) provides guidance for cutoff [...] Standards of Medical Care in Diabetes 2016, [place] [employer]. Diabetes Care. 2016.39(Suppl 1). Performed By: #### 1 9123-9, 2777-, 44391-0 ####[facility]ORATORYCLIA [id number] [place] [address] [place] Potassium [Moles/Vol] 3.3 mmol/L Low 3.7-5.1 [facility] Comment on above: Order Comment: Speci men Type: BLOOD SPECIMEN Performed By: #### 1 9123-9, 2777-, 34496-7 ####[facility]ORATORYCLIA [id number] [facility] [address] Sodium [Moles/Vol] 146 mmol/L High 136-144 [facility] Comment on above: Order Comment: Speci men Type: BLOOD SPECIMEN Performed By: #### 1 9123-9, 2777-1, 84745-1 ####[facility]ATORYCLIA [id number] [address] Urea nitrogen [Mass/Vol] 10 mg/dL Normal 9-24 [facility] Comment on above: Order Comment: Speci men Type: BLOOD SPECIMEN Performed By: #### 1 9123-9, 2777-, 66226-9 ####[facility]ATORYCLIA [id number] [address] CASE MANAGEMon 06-03-2021 CASE MANAGEM Normal [facility] CBC panel Auto (Bld)on 06-03 Erythrocyte distribution width (RBC) [Ratio] 15.6 % High 11.5-15.0 [facility] Comment on above: Order Comment: Speci men Type: BLOOD SPECIMEN Performed By: #### 5 8410-2 ####[facility]ORYCLIA [id number] [address] Hematocrit (Bld) [Volume fraction] 36.9 % Low 39.0-51.0 [facility] Comment on above: Order Comment: Speci men Type: BLOOD SPECIMEN Performed By: #### 5 8410-2 ####[facility]ORYCLIA [id number] [address] Hemoglobin (Bld) [Mass/Vol] 11.1 g/dL Low 13.0-17.0 [facility] Comment on above: Order Comment: Speci men Type: BLOOD SPECIMEN Performed By: #### 5 8410-2 ####[facility]ATORYCLIA [id number] [address] MCH (RBC) [Entitic mass] 27.0 pg Normal 26.0-34.0 [facility] Comment on above: Order Comment: Speci men Type: BLOOD SPECIMEN Performed By: #### 5 8410-2 ####[facility]ATORYCLIA [id number] [address] MCHC (RBC) [Mass/Vol] 30.1 g/dL Low 30.5-36.0 [facility] Comment on above: Order Comment: Speci men Type: BLOOD SPECIMEN Performed By: #### 5 8410-2 ####[facility]ATORYCLIA [id number] [address] MCV (RBC) [Entitic vol] 89.8 fL Normal 80.0-100.0 [facility] Comment on above: Order Comment: Speci men Type: BLOOD SPECIMEN Performed By: #### 5 8410-2 ####[facility]ATORYCLIA [id number] [address] Nucleated RBC (Bld) [#/Vol] 10*3/uL Normal <0.01 [facility] Comment on above: Order Comment: Speci men Type: BLOOD SPECIMEN Performed By: #### 5 8410-2 ####[facility]ORYCLIA [id number] [address] Platelet mean volume (Bld) [Entitic vol] 10.5 fL Normal 9.0-12.7 [facility] Comment on above: Order Comment: Speci men Type: BLOOD SPECIMEN Performed By: #### 5 8410-2 ####[facility]ATORYCLIA [id number] [address] Platelets (Bld) [#/Vol] 196 10*3/uL Normal 150-400 [facility] Comment on above: Order Comment: Speci men Type: BLOOD SPECIMEN Performed By: #### 5 8410-2 ####[facility]ORYCLIA [id number] [address] RBC (Bld) [#/Vol] 4.11 10*6/uL Low 4.20-6.00 [facility] Comment on above: Order Comment: Speci men Type: BLOOD SPECIMEN Performed By: #### 5 8410-2 ####[facility]ATORYCLIA [id number] [address] STATES [place] WBC (Bld) [#/Vol] 8.18 10*3/uL Normal 3.70-11.00 [facility] Comment on above: Order Comment: Speci men Type: BLOOD SPECIMEN Performed By: #### 5 8410-2 ####[facility]ATORYCLIA [id number] [address] CONSULTon 06-03-2021 CONSULT Normal [facility] CONSULT PROGon 06-03-2021 CONSULT PROG Normal [facility] Gas and Carbon monoxide pane l (BldV)on 06-03-2021 Base excess Calc (BldV) [Moles/Vol] 1.4 mmol/L Normal 0-2 [facility] Comment on above: Order Comment: Speci men Type: VENOUS BLOOD SPECIMEN Performed By: #### 2 4344-4 ####[facility]ATORYCLIA [id number] [address] Body temperature 98.42 [degF] Normal [facility] Comment on above: Order Comment: Speci men Type: VENOUS BLOOD SPECIMEN Performed By: #### 2 4344-4 ####[facility]ATORYCLIA [id number] [address] CALCIUM IONIZED, PH CORRECTED 1.09 mmol/L Normal 1.08-1.30 [facility] Comment on above: Order Comment: Speci men Type: VENOUS BLOOD SPECIMEN Performed By: #### 2 4344-4 ####[facility]ATORYCLIA [id number] [address] STATES [facility] Calcium.ionized (BldV) [Mass/Vol] 1.12 mmol/L Normal 1.08-1.30 [facility] Comment on above: Order Comment: Speci men Type: VENOUS BLOOD SPECIMEN Performed By: #### 2 4344-4 ####[facility]ORYCLIA [id number] [place] [address] Carboxyhemoglobin (BldV) [Mass fraction] 1.7 % Normal 0.0-2.0 [facility] Comment on above: Order Comment: Speci men Type: VENOUS BLOOD SPECIMEN Result Comment: Carb oxyhemoglobin Reference Range for Smokers: 2.0-8.0% Performed By: #### 2 4344-4 ####[facility]ORYCLIA [id number] [address] CO2 (BldV) [Partial pressure] 50 mm[Hg] Normal 42-55 [facility] Comment on above: Order Comment: Speci men Type: VENOUS BLOOD SPECIMEN Performed By: #### 2 4344-4 ####[facility]ORYCLIA [id number] [address] CO2 [Moles/Vol] 24.9 mmol/L Low 25-29 [facility] Comment on above: Order Comment: Speci men Type: VENOUS BLOOD SPECIMEN Performed By: #### 2 4344-4 ####[facility]ORYCLIA [id number] [address] CO2 adjusted to patient's actual temperature (BldV) [Partial pressure] 50 mmHg Normal 42-55 [facility] Comment on above: Order Comment: Speci men Type: VENOUS BLOOD SPECIMEN Performed By: #### 2 4344-4 ####[facility]ORYCLIA [id number] [address] OF [place] FIO2 30 % Normal [facility] Comment on above: Order Comment: Speci men Type: VENOUS BLOOD SPECIMEN Performed By: #### 2 4344-4 ####[facility]ORYCLIA [id number] [address] Glucose [Mass/Vol] 191 mg/dL High 60-105 [facility] Comment on above: Order Comment: Speci men Type: VENOUS BLOOD SPECIMEN Performed By: #### 2 4344-4 ####[facility]ORATORYCLIA [id number] [place] [address] [place] HCO3 (Bld) [Moles/Vol] 27.1 mmol/L Normal 24-28 [facility] Comment on above: Order Comment: Speci men Type: VENOUS BLOOD SPECIMEN Performed By: #### 2 4344-4 ####[facility]ATORYCLIA [id number] [address] [place] Hematocrit (Bld) [Volume fraction] 36.2 % Low 39.0-51.0 [facility] Comment on above: Order Comment: Speci men Type: VENOUS BLOOD SPECIMEN Performed By: #### 2 4344-4 ####[facility] LABORATORYCLIA [id number] [address] [place] Hemoglobin (Bld) [Mass/Vol] 11.8 g/dL Low 13.0-17.0 [facility] Comment on above: Order Comment: Speci men Type: VENOUS BLOOD SPECIMEN Performed By: #### 2 4344-4 ####[facility]ORATORYCLIA [id number] [address] INHALED TIDAL VOLUME (ML) 530 Normal [facility] Comment on above: Order Comment: Speci men Type: VENOUS BLOOD SPECIMEN Performed By: #### 2 4344-4 ####[facility]ORATORYCLIA [id number] [address] [place] Methemoglobin (Bld) [Mass fraction] % Normal 0.0-1.5 [facility] Comment on above: Order Comment: Speci men Type: VENOUS BLOOD SPECIMEN Performed By: #### 2 4344-4 ####[facility]ORATORYCLIA [id number] [address] [place] O2 THERAPY Ventilator Normal [facility] Comment on above: Order Comment: Speci men Type: VENOUS BLOOD SPECIMEN Performed By: #### 2 4344-4 ####[facility]ATORYCLIA [id number] [address] [place] Oxygen (BldV) [Partial pressure] 69 mm[Hg] High 35-45 [facility] Comment on above: Order Comment: Speci men Type: VENOUS BLOOD SPECIMEN Performed By: #### 2 4344-4 ####[facility]ORYCLIA [id number] [address] Oxygen adjusted to patient's actual temperature (BldV) [Partial pressure] 68.8 mmHg High 35-45 [facility] Comment on above: Order Comment: Speci men Type: VENOUS BLOOD SPECIMEN Performed By: #### 2 4344-4 ####[facility]ORYCLIA [id number] [address] Oxygen saturation in Blood 92.4 % High 60-85 [facility] Comment on above: Order Comment: Speci men Type: VENOUS BLOOD SPECIMEN Performed By: #### 2 4344-4 ####[facility]ORYCLIA [id number] [address] Oxyhemoglobin (BldV) [Mass fraction] 90 % High 60-85 [facility] Comment on above: Order Comment: Speci men Type: VENOUS BLOOD SPECIMEN Performed By: #### 2 4344-4 ####[facility]ORYCLIA [id number] [address] PEEP/CPAP 8 cmH2O Normal [facility] Comment on above: Order Comment: Speci men Type: VENOUS BLOOD SPECIMEN Performed By: #### 2 4344-4 ####[facility]ORYCLIA [id number] [address] pH (BldV) 7.35 [pH] Normal 7.32-7.42 [facility] Comment on above: Order Comment: Speci men Type: VENOUS BLOOD SPECIMEN Performed By: #### 2 4344-4 ####[facility]ORYCLIA [id number] [address] pH adjusted to patient's actual temperature (BldV) 7.35 Normal 7.32-7.42 [facility] Comment on above: Order Comment: Speci men Type: VENOUS BLOOD SPECIMEN Performed By: #### 2 4344-4 ####[facility]ORYCLIA [id number] [address] Potassium [Moles/Vol] 3.6 mmol/L Normal 3.5-5.0 [facility] Comment on above: Order Comment: Speci men Type: VENOUS BLOOD SPECIMEN Performed By: #### 2 4344-4 ####[facility]ORATORYCLIA [id number] [address] SET VENTILATOR RESPIRATORY RATE (BPM) 18 BPM Normal [facility] Comment on above: Order Comment: Speci men Type: VENOUS BLOOD SPECIMEN Performed By: #### 2 4344-4 ####[facility]ORATORYCLIA [id number] [address] Sodium [Moles/Vol] 141 mmol/L Normal 136-144 [facility] Comment on above: Order Comment: Speci men Type: VENOUS BLOOD SPECIMEN Performed By: #### 2 4344-4 ####[facility]ORATORYCLIA [id number] [address] HIV 1+2 Ab IA Qlon 2 HIV 1 and 2 Ab IA.rapid Nom Normal [facility] Comment on above: Order Comment: Speci men Type: BLOOD SPECIMEN Result Comment: Test not indicated. Performed By: #### 3 1201-7, TOXMG ####[facility]ORATORYCLIA [id number] [address] HIV 1+2 Ab+HIV1 p24 Ag IA Ql Non-Reactive Normal Nonreactive [facility] Comment on above: Order Comment: Speci men Type: BLOOD SPECIMEN Result Comment: Randolph Rev. Code 3701.243(E): This information has been [...] diagnoses. Performed By: #### 3 1201-7, TOXMG ####[facility]ORYCLIA [id number] [address] HIVINT Normal [facility] Comment on above: Order Comment: Speci men Type: BLOOD SPECIMEN Result Comment: No e vidence of HIV-1 or HIV-2 infection. Should recent infection be suspected, repeat testing may be considered 2-3 weeks after this draw. Performed By: #### 3 1201-7, TOXMG ####[facility]ORATORYCLIA [id number] [address] Magnesium SerPl-mCncon 06-03 Magnesium [Mass/Vol] 1.9 mg/dL Normal 1.7-2.3 [facility] Comment on above: Order Comment: Speci men Type: BLOOD SPECIMEN Performed By: #### 1 9123-9, 2777-1, 81560-6 ####[facility]ORATORYCLIA [id number] [address] NUTRITIONon 06-03-2021 NUTRITION Normal [facility] Phosphate SerPl-mCncon 06-03 Phosphate [Mass/Vol] 1.9 mg/dL Low 2.7-4.8 [facility] Comment on above: Order Comment: Speci men Type: BLOOD SPECIMEN Performed By: #### 1 9123-9, 2777-1, 14107-1 ####[facility]ORATORYCLIA [id number] [address] TOXOPLASMOSIS IGM AND IGG AB on 06-03-2021 TOXO IGG QUAL Negative Normal Negative [facility] Comment on above: Order Comment: Speci men Type: BLOOD SPECIMEN Result Comment: No s erological evidence of past exposure to Toxoplasma gondii. Cannot exclude recent infection if the specimen collected within 3-4 weeks after infection.Negative <6.4 IU/mLEquivocal 6.4-9.9 IU/mLPositive >=10.0 IU/mL Performed By: #### 3 1201-7, TOXMG ####[facility]ORATORYCLIA [id number] [address] TOXO IGM QUAL Negative Normal Negative [facility] Comment on above: Order Comment: Speci men Type: BLOOD SPECIMEN Result Comment: No s erological evidence of recent exposure to Toxoplasma gondii.Negative <0.9 IndexEquivocal 0.9-0.99 IndexPositive >=1.0 Index Performed By: #### 3 1201-7, TOXMG ####[facility]ORATORYCLIA [id number] [address] [place] US DVT LOWER BILon US DVT LOWER RAINER Normal [facility] XR CHEST 1V FRONTALon 2021 XR CHEST 1V FRONTAL Normal [facility] ARTERIAL BLOOD GASESon 06-02 Base excess Calc (Bld) [Moles/Vol] 2 mmol/L Normal 0-2 [facility] Comment on above: Order Comment: Speci men Type: ARTERIAL BLOOD SPECIMEN Performed By: #### A LLBG ####[facility]ORATORYCLIA [id number] [address] Body temperature 99.32 [degF] Normal [facility] Comment on above: Order Comment: Speci men Type: ARTERIAL BLOOD SPECIMEN Performed By: #### A LLBG ####[facility]ORATORYCLIA [id number] [address] CALCIUM IONIZED, PH CORRECTED 1.15 mmol/L Normal 1.08-1.30 [facility] Comment on above: Order Comment: Speci men Type: ARTERIAL BLOOD SPECIMEN Performed By: #### A LLBG ####[facility]ORATORYCLIA [id number] [address] Calcium.ionized (BldV) [Mass/Vol] 1.13 mmol/L Normal 1.08-1.30 [facility] Comment on above: Order Comment: Speci men Type: ARTERIAL BLOOD SPECIMEN Performed By: #### A LLBG ####[facility]ATORYCLIA [id number] [address] Carboxyhemoglobin (BldA) [Mass fraction] 1.4 % Normal 0.0-2.0 [facility] Comment on above: Order Comment: Speci men Type: ARTERIAL BLOOD SPECIMEN Result Comment: Carb oxyhemoglobin Reference Range for Smokers: 2.0-8.0% Performed By: #### A LLBG ####[facility]ORYCLIA [id number] [address] CO2 (Bld) [Partial pressure] 39 mm Hg Normal 36-46 [facility] Comment on above: Order Comment: Speci men Type: ARTERIAL BLOOD SPECIMEN Performed By: #### A LLBG ####[facility]ORYCLIA [id number] [address] CO2 [Moles/Vol] 23.4 mmol/L Normal 22-28 [facility] Comment on above: Order Comment: Speci men Type: ARTERIAL BLOOD SPECIMEN Performed By: #### A LLBG ####[facility]ORATORYCLIA [id number] [address] CO2 adjusted to patient's actual temperature (Bld) [Partial pressure] 40 mmHg Normal 36-46 [facility] Comment on above: Order Comment: Speci men Type: ARTERIAL BLOOD SPECIMEN Performed By: #### A LLBG ####[facility]ORATORYCLIA [id number] [address] [place] Glucose [Mass/Vol] 156 mg/dL High 60-105 [facility] Comment on above: Order Comment: Speci men Type: ARTERIAL BLOOD SPECIMEN Performed By: #### A LLBG ####[facility]ORYCLIA [id number] [address] [place] HCO3 (Bld) [Moles/Vol] 26 mmol/L Normal 22-26 [place] Comment on above: Order Comment: Speci men Type: ARTERIAL BLOOD SPECIMEN Performed By: #### A LLBG ####[facility]ORYCLIA [id number] [address] [place] Hematocrit (Bld) [Volume fraction] 33.9 % Low 39.0-51.0 [facility] Comment on above: Order Comment: Speci men Type: ARTERIAL BLOOD SPECIMEN Performed By: #### A LLBG ####[facility]ORYCLIA [id number] [address] Hemoglobin (Bld) [Mass/Vol] 11.0 g/dL Low 13.0-17.0 [facility] Comment on above: Order Comment: Speci men Type: ARTERIAL BLOOD SPECIMEN Performed By: #### A LLBG ####[facility]ORYCLIA [id number] [address] Methemoglobin (Bld) [Mass fraction] % Normal 0.0-1.5 [facility] Comment on above: Order Comment: Speci men Type: ARTERIAL BLOOD SPECIMEN Performed By: #### A LLBG ####[facility]ORYCLIA [id number] [address] O2 THERAPY Ventilator Normal [facility] Comment on above: Order Comment: Speci men Type: ARTERIAL BLOOD SPECIMEN Performed By: #### A LLBG ####[facility]ORYCLIA [id number] [address] OF [facility] Oxygen (Bld) [Partial pressure] 70 mm Hg Low 85-95 [facility] Comment on above: Order Comment: Speci men Type: ARTERIAL BLOOD SPECIMEN Performed By: #### A LLBG ####[facility]ORYCLIA [id number] [address] OF [facility] Oxygen adjusted to patient's actual temperature (Bld) [Partial pressure] 72.2 mmHg Low 85-95 [facility] Comment on above: Order Comment: Speci men Type: ARTERIAL BLOOD SPECIMEN Performed By: #### A LLBG ####[facility]ORYCLIA [id number] [address] OXYGEN SATURATION, ARTERIAL 96 % Normal 95-98 [facility] Comment on above: Order Comment: Speci men Type: ARTERIAL BLOOD SPECIMEN Performed By: #### A LLBG ####[facility]ORYCLIA [id number] [address] Oxyhemoglobin (BldA) [Mass fraction] 94 % Low 95-98 [facility] Comment on above: Order Comment: Speci men Type: ARTERIAL BLOOD SPECIMEN Performed By: #### A LLBG ####[facility]ATORYCLIA [id number] [address] pH (Bld) 7.43 [pH] Normal 7.35-7.45 [facility] Comment on above: Order Comment: Speci men Type: ARTERIAL BLOOD SPECIMEN Performed By: #### A LLBG ####[facility]ATORYCLIA [id number] [address] pH adjusted to patient's actual temperature (Bld) 7.42 Normal 7.35-7.45 [facility] Comment on above: Order Comment: Speci men Type: ARTERIAL BLOOD SPECIMEN Performed By: #### A LLBG ####[facility]ATORYCLIA [id number] [address] Potassium [Moles/Vol] 2.6 mmol/L Low 3.5-5.0 [facility] Comment on above: Order Comment: Speci men Type: ARTERIAL BLOOD SPECIMEN Performed By: #### A LLBG ####[facility]ATORYCLIA [id number] [address] Sodium [Moles/Vol] 142 mmol/L Normal 136-144 [facility] Comment on above: Order Comment: Speci men Type: ARTERIAL BLOOD SPECIMEN Performed By: #### A LLBG ####[facility]ORATORYCLIA [id number] [address] [place] Ammonia Plas-sCncon 06-02-19 22 Ammonia (P) [Moles/Vol] 20 umol/L Normal 16-60 [facility] Comment on above: Order Comment: Speci men Type: BLOOD SPECIMEN Performed By: #### 1 6362-6 ####[facility]ORATORYCLIA [id number] [address] Bacteria CSF Culton 06-02-19 22 Bacteria identified Cx Nom (CSF) CULTURE, CSF: No growth 14 days GRAM STAIN: No organisms seen Rare Polymorphonuclear leukocytes Gram stain performed on cytospun specimen. Normal [facility] Comment on above: Performed By: #### 6 06-4 ####[facility]ORYCLIA [id number] [address] [place] Basic metabolic 2000 panelon 06-02-2021 Anion gap [Moles/Vol] 10 mmol/L Normal 9-18 [facility] Comment on above: Order Comment: Speci men Type: BLOOD SPECIMEN Performed By: #### 2 4321-2, , 2776-05 ####[facility]ATORYCLIA [id number] [address] [place] Calcium [Mass/Vol] 8.1 mg/dL Low 8.5-10.2 [facility] Comment on above: Order Comment: Speci men Type: BLOOD SPECIMEN Performed By: #### 2 4321-2, , 2776-05 ####[facility]ORYCLIA [id number] [address] STATES OF [facility] Chloride [Moles/Vol] 108 mmol/L High 97-105 [facility] Comment on above: Order Comment: Speci men Type: BLOOD SPECIMEN Performed By: #### 2 4321-2, , 2776-05 ####[facility]ATORYCLIA [id number] [place] [address] [place] CO2 [Moles/Vol] 24 mmol/L Normal 22-30 [facility] Comment on above: Order Comment: Speci men Type: BLOOD SPECIMEN Performed By: #### 2 4321-2, , 2776-05 ####[facility]ORYCLIA [id number] [address] [place] Creatinine [Mass/Vol] 0.78 mg/dL Normal 0.73-1.22 [facility] Comment on above: Order Comment: Speci men Type: BLOOD SPECIMEN Performed By: #### 2 4321-2, 84827-6, 2776-05 ####[facility]ORATORYCLIA [id number] [place] [address] [place] GFR/1.73 sq M.predicted MDRD (S/P/Bld) [Vol rate/Area] mL/min/{1.73_m2} Normal [facility] Comment on above: Order [...] 4321-2, , 2776-05 ####[facility]IA [id number] [place] [address] [place] Glucose [Mass/Vol] 162 mg/dL High 74-99 [facility] Comment on above: Order Comment: Shira feldman Type: BLOOD SPECIMEN Result Comment: The [place] [employer] (ADA) provides guidance for cutoff [...] Standards of Medical Care in Diabetes 2016, [place] [employer]. Diabetes Care. 2016.39(Suppl 1). Performed By: #### 2 4321-2, 54789-2, 2776-05 ####[facility]ORATORYCLIA [id number] [place], [place] [address] [place] [address] STATES OF [facility] Potassium [Moles/Vol] 2.7 mmol/L Low 3.7-5.1 [facility] Comment on above: Order Comment: Speci men Type: BLOOD SPECIMEN Performed By: #### 2 4321-2, 81214-4, 2776-1 ####[facility]ORATORYCLIA [id number] [address] Sodium [Moles/Vol] 142 mmol/L Normal 136-144 [facility] Comment on above: Order Comment: Speci men Type: BLOOD SPECIMEN Performed By: #### 2 4321-2, , 2776- ####[facility]ATORYCLIA [id number] [address] Urea nitrogen [Mass/Vol] 12 mg/dL Normal 9-24 [facility] Comment on above: Order Comment: Speci men Type: BLOOD SPECIMEN Performed By: #### 2 4321-2, , 2776-05 ####[facility]ATORYCLIA [id number] [address] CBC panel Auto (Bld)on 06-02 Erythrocyte distribution width (RBC) [Ratio] 15.0 % Normal 11.5-15.0 [facility] Comment on above: Order Comment: Speci men Type: BLOOD SPECIMEN Performed By: #### 5 8410-2 ####[facility]ATORYCLIA [id number] [address] Hematocrit (Bld) [Volume fraction] 34.3 % Low 39.0-51.0 [facility] Comment on above: Order Comment: Speci men Type: BLOOD SPECIMEN Performed By: #### 5 8410-2 ####[facility]ORATORYCLIA [id number] [address] OF [facility] Hemoglobin (Bld) [Mass/Vol] 10.3 g/dL Low 13.0-17.0 [facility] Comment on above: Order Comment: Speci men Type: BLOOD SPECIMEN Performed By: #### 5 8410-2 ####[facility]ATORYCLIA [id number] [address] MCH (RBC) [Entitic mass] 27.0 pg Normal 26.0-34.0 [facility] Comment on above: Order Comment: Speci men Type: BLOOD SPECIMEN Performed By: #### 5 8410-2 ####[facility]ATORYCLIA [id number] [address] MCHC (RBC) [Mass/Vol] 30.0 g/dL Low 30.5-36.0 [facility] Comment on above: Order Comment: Speci men Type: BLOOD SPECIMEN Performed By: #### 5 8410-2 ####[facility]ATORYCLIA [id number] [address] MCV (RBC) [Entitic vol] 90.0 fL Normal 80.0-100.0 [facility] Comment on above: Order Comment: Speci men Type: BLOOD SPECIMEN Performed By: #### 5 8410-2 ####[facility]ATORYCLIA [id number] [address] Nucleated RBC (Bld) [#/Vol] 10*3/uL Normal <0.01 [facility] Comment on above: Order Comment: Speci men Type: BLOOD SPECIMEN Performed By: #### 5 8410-2 ####[facility]ORYCLIA [id number] [address] Platelet mean volume (Bld) [Entitic vol] 10.2 fL Normal 9.0-12.7 [facility] Comment on above: Order Comment: Speci men Type: BLOOD SPECIMEN Performed By: #### 5 8410-2 ####[facility]ORYCLIA [id number] [address] Platelets (Bld) [#/Vol] 194 10*3/uL Normal 150-400 [facility] Comment on above: Order Comment: Speci men Type: BLOOD SPECIMEN Performed By: #### 5 8410-2 ####[facility]ORYCLIA [id number] [address] OF [facility] RBC (Bld) [#/Vol] 3.81 10*6/uL Low 4.20-6.00 [facility] Comment on above: Order Comment: Speci men Type: BLOOD SPECIMEN Performed By: #### 5 8410-2 ####[facility]ORYCLIA [id number] [address] WBC (Bld) [#/Vol] 9.22 10*3/uL Normal 3.70-11.00 [facility] Comment on above: Order Comment: Speci men Type: BLOOD SPECIMEN Performed By: #### 5 8410-2 ####[facility]ORYCLIA [id number] [address] CONSULT PROGon 06-02-2021 CONSULT PROG Normal [facility] CSF MANUAL DIFFon 06-02-2021 DIF TTL, CSF 25 cells counted Normal [facility] Comment on above: Order Comment: Speci men Type: CEREBROSPINAL FLUID Performed By: #### 3 4563-7, [id number], [id number] ####[facility]ORYCLIA [id number] [address] LYMPH%, CSF 4 % Low 50-90 [facility] Comment on above: Order Comment: Speci men Type: CEREBROSPINAL FLUID Performed By: #### 3 4563-7, [id number], [id number] ####[facility]ORYCLIA [id number] [address] [place] MACRO%, CSF 4 % High <1 [facility] Comment on above: Order Comment: Speci men Type: CEREBROSPINAL FLUID Performed By: #### 3 4563-7, [id number], [id number] ####[facility]ORYCLIA [id number] [address] [place] MONO%, CSF 20 % Normal 10-50 [facility] Comment on above: Order Comment: Speci men Type: CEREBROSPINAL FLUID Performed By: #### 3 4563-7, [id number], [id number] ####[facility]ATORYCLIA [id number] [address] [place] NEUT%, CSF 72 % High 0-3 [facility] Comment on above: Order Comment: Speci men Type: CEREBROSPINAL FLUID Performed By: #### 3 4563-7, [id number], [id number] ####[facility]ORYCLIA [id number] [address] CSF PATHOLOGIST INTERP (LAB REFLEX ORDER-NO BILL)on 06-02-2021 CSF STAFF REVIEW Negative Normal [facility] Comment on above: Order Comment: Speci men Type: CEREBROSPINAL FLUID Performed By: #### 3 4563-7, [id number], [id number] ####[facility]ATORYCLIA [id number] [address] Pathologist name Reviewed by Amador Stevens MD [facility] Comment on above: Order Comment: Speci men Type: CEREBROSPINAL FLUID Performed By: #### 3 4563-7, [id number], [id number] ####[facility]ORYCLIA [id number] [address] Cell count panel (CSF)on Clarity (CSF) Clear Normal Clear [facility] Comment on above: Order Comment: Speci men Type: CEREBROSPINAL FLUID Performed By: #### 3 4563-7, [id number], [id number] ####[facility]ORYCLIA [id number] [address] Clarity (Unsp spec) Not Indicated Normal Clear [place] Comment on above: Order Comment: Speci men Type: CEREBROSPINAL FLUID Performed By: #### 3 4563-7, [id number], [id number] ####[facility]ORYCLIA [id number] [address] Color (CSF) Colorless Normal Colorless [facility] Comment on above: Order Comment: Speci men Type: CEREBROSPINAL FLUID Performed By: #### 3 4563-7, [id number], [id number] ####[facility]ORYCLIA [id number] [address] Color (Spun CSF) Not Indicated Normal Colorless [facility] Comment on above: Order Comment: Speci men Type: CEREBROSPINAL FLUID Performed By: #### 3 4563-7, [id number], [id number] ####[facility]ORYCLIA [id number] [address] CSF TUBE NUMBER Sterile Container Normal [place] Comment on above: Order Comment: Speci men Type: CEREBROSPINAL FLUID Performed By: #### 3 4563-7, [id number], [id number] ####[facility]ORYCLIA [id number] [address] RBC Manual cnt (CSF) [#/Vol] 117 cells/uL High 0-5 [facility] Comment on above: Order Comment: Speci men Type: CEREBROSPINAL FLUID Performed By: #### 3 4563-7, [id number], [id number] ####[facility]ORYCLIA [id number] [address] WBC Manual cnt (CSF) [#/Vol] 1 cells/uL Normal 0-5 [facility] Comment on above: Order Comment: Speci men Type: CEREBROSPINAL FLUID Performed By: #### 3 4563-7, [id number], [id number] ####[facility]ORYCLIA [id number] [address] Glucose CSF-mCncon 2 Glucose (CSF) [Mass/Vol] 82 mg/dL High 40-70 [facility] Comment on above: Order Comment: Speci men Type: CEREBROSPINAL FLUID Result Comment: Lumb ar CSF glucose values of healthy patients are approximately 60% of the plasma values and must always be compared with a concurrently measured plasma value for adequate clinical interpretation.References: 1. Glucose HK (GLUC3) [package insert V 12.0 Citizen [place]]. [employer], [place], [place]. September 2015. 2. Michelle Moore, Lkoi HGarfield (2015). Chapter 7: Glucose and Lactate. F. Irina rose al.(eds.), Cerebrospinal Fluid in Clinical Neurology. [place]: [employer]. Performed By: #### 2 342-4 ####[facility]ORYCLIA [id number] [address] HEPATIC FUNCTION PNLon 06-02 Albumin [Mass/Vol] 3.2 g/dL Low 3.9-4.9 [facility] Comment on above: Order Comment: Speci men Type: BLOOD SPECIMEN Performed By: #### [place], 26355-0 ####[facility]ORYCLIA [id number] [address] ALP [Catalytic activity/Vol] 67 U/L Normal 38-113 [facility] Comment on above: Order Comment: Speci men Type: BLOOD SPECIMEN Performed By: #### [place], 85172-2 ####[facility]ORYCLIA [id number] [address] ALT With P-5'-P [Catalytic activity/Vol] 16 U/L Normal 10-54 [facility] Comment on above: Order Comment: Speci men Type: BLOOD SPECIMEN Performed By: #### H FP, 22947-3 ####[facility]ORYCLIA [id number] [address] AST With P-5'-P [Catalytic activity/Vol] 25 U/L Normal 14-40 [facility] Comment on above: Order Comment: Speci men Type: BLOOD SPECIMEN Performed By: #### H FP, 00954-6 ####[facility]ORYCLIA [id number] [address] Bilirubin [Mass/Vol] 0.2 mg/dL Normal 0.2-1.3 [facility] Comment on above: Order Comment: Speci men Type: BLOOD SPECIMEN Performed By: #### H [place], 22855-4 ####[facility]ORYCLIA [id number] [address] Bilirubin.conjugated [Mass/Vol] mg/dL Normal <0.2 [facility] Comment on above: Order Comment: Speci men Type: BLOOD SPECIMEN Performed By: #### Marin KATHIE, 16802-7 ####[facility]ORATORYCLIA [id number] [address] Protein [Mass/Vol] 5.8 g/dL Low 6.3-8.0 [facility] Comment on above: Order Comment: Speci men Type: BLOOD SPECIMEN Performed By: #### Marin KATHIE, 32332-3 ####[facility]ORATORYCLIA [id number] [address] MRI BRAIN WO/W IVCONon 06-02 MRI BRAIN WO/W IVCON Normal [facility] Magnesium SerPl-ncon 06-02 Magnesium [Mass/Vol] 2.0 mg/dL Normal 1.7-2.3 [facility] Comment on above: Order Comment: Speci men Type: BLOOD SPECIMEN Performed By: #### 2 4321-2, 15918-5, 2777-1 ####[facility]ORATORYCLIA [id number] [address] NT-proBNP SerPl-mCncon 06-02 Natriuretic peptide.B prohormone N-Terminal [Mass/Vol] 296 pg/mL High <125 [facility] Comment on above: Order Comment: Speci men Type: BLOOD SPECIMEN Performed By: #### [place] KATHIE, 82523-3 ####[facility]ORATORYCLIA [id number] 57 [address] POTASSIUM BLDon 06-02-2021 Potassium [Moles/Vol] 3.2 mmol/L Low 3.7-5.1 [facility] Comment on above: Order Comment: Speci men Type: BLOOD SPECIMEN Performed By: #### K 1 ####[facility]ORATORYCLIA [id number] [address] Phosphate SerPl-mCncon 06-02 Phosphate [Mass/Vol] 2.1 mg/dL Low 2.7-4.8 [facility] Comment on above: Order Comment: Speci men Type: BLOOD SPECIMEN Performed By: #### 2 4321-2, 45406-0, 2777-1 ####[facility]ORATORYCLIA [id number] [address] OF [facility] Vancomycin random [Mass/Vol] on 06-02-2021 Vancomycin [Mass/Vol] 18.8 ug/mL Normal 10.0-20.0 [facility] Comment on above: Order Comment: Speci men Type: BLOOD SPECIMEN Result Comment: Refe rence ranges and high/low indicator flags are provided as general guidelines only. The treating physician must determine appropriate target levels/dosing based on the specific clinical situation. Performed By: #### 4 091-5 ####[facility]ORATORYCLIA [id number] [address] OF [facility] ALLIED HEALTHon 06-01-2021 ALLIED HEALTH Normal [facility] ALLIED HEALTH Normal [facility] ALLIED HEALTH Normal [facility] ARTERIAL BLOOD GASESon 06-01 Base excess Calc (Bld) [Moles/Vol] 1 mmol/L Normal 0-2 [facility] Comment on above: Order Comment: Speci men Type: ARTERIAL BLOOD SPECIMEN Performed By: #### A LLBG ####[facility]ATORYCLIA [id number] [address] OF [facility] Body temperature 97.52 [degF] Normal [facility] Comment on above: Order Comment: Speci men Type: ARTERIAL BLOOD SPECIMEN Performed By: #### A LLBG ####[facility]ATORYCLIA [id number] [address] CALCIUM IONIZED, PH CORRECTED 1.13 mmol/L Normal 1.08-1.30 [facility] Comment on above: Order Comment: Speci men Type: ARTERIAL BLOOD SPECIMEN Performed By: #### A LLBG ####[facility]ATORYCLIA [id number] [address] Calcium.ionized (BldV) [Mass/Vol] 1.12 mmol/L Normal 1.08-1.30 [facility] Comment on above: Order Comment: Speci men Type: ARTERIAL BLOOD SPECIMEN Performed By: #### A LLBG ####[facility]ORYCLIA [id number] [address] Carboxyhemoglobin (BldA) [Mass fraction] 1.6 % Normal 0.0-2.0 [facility] Comment on above: Order Comment: Speci men Type: ARTERIAL BLOOD SPECIMEN Result Comment: Carb oxyhemoglobin Reference Range for Smokers: 2.0-8.0% Performed By: #### A LLBG ####[facility]ORYCLIA [id number] [address] CO2 (Bld) [Partial pressure] 41 mm Hg Normal 36-46 [facility] Comment on above: Order Comment: Speci men Type: ARTERIAL BLOOD SPECIMEN Performed By: #### A LLBG ####[facility]ORYCLIA [id number] [address] CO2 [Moles/Vol] 23.0 mmol/L Normal 22-28 [facility] Comment on above: Order Comment: Speci men Type: ARTERIAL BLOOD SPECIMEN Performed By: #### A LLBG ####[facility]ORYCLIA [id number] [address] CO2 adjusted to patient's actual temperature (Bld) [Partial pressure] 40 mmHg Normal 36-46 [facility] Comment on above: Order Comment: Speci men Type: ARTERIAL BLOOD SPECIMEN Performed By: #### A LLBG ####[facility]ORYCLIA [id number] [address] FIO2 40 % Normal [facility] Comment on above: Order Comment: Speci men Type: ARTERIAL BLOOD SPECIMEN Performed By: #### A LLBG ####[facility]ORYCLIA [id number] [address] STATES OF [facility] Glucose [Mass/Vol] 127 mg/dL High 60-105 [facility] Comment on above: Order Comment: Speci men Type: ARTERIAL BLOOD SPECIMEN Performed By: #### A LLBG ####[facility]ORYCLIA [id number] [address] OF [place] HCO3 (Bld) [Moles/Vol] 25 mmol/L Normal 22-26 [place] Comment on above: Order Comment: Speci men Type: ARTERIAL BLOOD SPECIMEN Performed By: #### A LLBG ####[facility]ORYCLIA [id number] [address] OF [place] Hematocrit (Bld) [Volume fraction] 33.7 % Low 39.0-51.0 [facility] Comment on above: Order Comment: Speci men Type: ARTERIAL BLOOD SPECIMEN Performed By: #### A LLBG ####[facility]ORYCLIA [id number] [address] OF [place] Hemoglobin (Bld) [Mass/Vol] 10.9 g/dL Low 13.0-17.0 [facility] Comment on above: Order Comment: Speci men Type: ARTERIAL BLOOD SPECIMEN Performed By: #### A LLBG ####[facility]ATORYCLIA [id number] [address] OF [place] INHALED TIDAL VOLUME (ML) 500 Normal [facility] Comment on above: Order Comment: Speci men Type: ARTERIAL BLOOD SPECIMEN Performed By: #### A LLBG ####[facility]ORYCLIA [id number] [address] OF [place] INVASIVE VENTILATOR MODE PRVC=Pressure Regulated Volume Control Normal [facility] Comment on above: Order Comment: Speci men Type: ARTERIAL BLOOD SPECIMEN Performed By: #### A LLBG ####[facility]ORYCLIA [id number] [address] OF [place] Methemoglobin (Bld) [Mass fraction] % Normal 0.0-1.5 [facility] Comment on above: Order Comment: Speci men Type: ARTERIAL BLOOD SPECIMEN Performed By: #### A LLBG ####[facility]ORYCLIA [id number] [place], [place] [id number] [place] [address] O2 THERAPY Ventilator Normal [facility] Comment on above: Order Comment: Speci men Type: ARTERIAL BLOOD SPECIMEN Performed By: #### A LLBG ####[facility]ORYCLIA [id number] [address] Oxygen (Bld) [Partial pressure] 64 mm Hg Low 85-95 [facility] Comment on above: Order Comment: Speci men Type: ARTERIAL BLOOD SPECIMEN Performed By: #### A LLBG ####[facility]ORYCLIA [id number] [address] Oxygen adjusted to patient's actual temperature (Bld) [Partial pressure] 61.8 mmHg Low 85-95 [facility] Comment on above: Order Comment: Speci men Type: ARTERIAL BLOOD SPECIMEN Performed By: #### A LLBG ####[facility]ORYCLIA [id number] [address] OXYGEN SATURATION, ARTERIAL 94 % Low 95-98 [facility] Comment on above: Order Comment: Speci men Type: ARTERIAL BLOOD SPECIMEN Performed By: #### A LLBG ####[facility]ORYCLIA [id number] [address] Oxyhemoglobin (BldA) [Mass fraction] 92 % Low 95-98 [facility] Comment on above: Order Comment: Speci men Type: ARTERIAL BLOOD SPECIMEN Performed By: #### A LLBG ####[facility]ORYCLIA [id number] [address] PEEP/CPAP 5 cmH2O Normal [facility] Comment on above: Order Comment: Speci men Type: ARTERIAL BLOOD SPECIMEN Performed By: #### A LLBG ####[facility]ORYCLIA [id number] [address] OF [place] pH (Bld) 7.40 [pH] Normal 7.35-7.45 [facility] Comment on above: Order Comment: Speci men Type: ARTERIAL BLOOD SPECIMEN Performed By: #### A LLBG ####[facility]ORYCLIA [id number] [address] pH adjusted to patient's actual temperature (Bld) 7.41 Normal 7.35-7.45 [facility] Comment on above: Order Comment: Speci men Type: ARTERIAL BLOOD SPECIMEN Performed By: #### A LLBG ####[facility]ORYCLIA [id number] [address] Potassium [Moles/Vol] 3.1 mmol/L Low 3.5-5.0 [facility] Comment on above: Order Comment: Speci men Type: ARTERIAL BLOOD SPECIMEN Performed By: #### A LLBG ####[facility]ORYCLIA [id number] [address] SET VENTILATOR RESPIRATORY RATE (BPM) 18 BPM Normal [facility] Comment on above: Order Comment: Speci men Type: ARTERIAL BLOOD SPECIMEN Performed By: #### A LLBG ####[facility]ORYCLIA [id number] [address] Sodium [Moles/Vol] 141 mmol/L Normal 136-144 [facility] Comment on above: Order Comment: Speci men Type: ARTERIAL BLOOD SPECIMEN Performed By: #### A LLBG ####[facility]ORYCLIA [id number] [address] BASE DEFICIT, ARTERIAL -1.0 mmol/L Normal -2-0 [facility] Comment on above: Order Comment: Speci men Type: ARTERIAL BLOOD SPECIMEN Performed By: #### A LLBG ####[facility]ORYCLIA [id number] [address] Body temperature 98.24 [degF] Normal [facility] Comment on above: Order Comment: Speci men Type: ARTERIAL BLOOD SPECIMEN Performed By: #### A LLBG ####[facility]ORYCLIA [id number] [address] CALCIUM IONIZED, PH CORRECTED 1.08 mmol/L Normal 1.08-1.30 [facility] Comment on above: Order Comment: Speci men Type: ARTERIAL BLOOD SPECIMEN Performed By: #### A LLBG ####[facility]ORYCLIA [id number] [address] Calcium.ionized (BldV) [Mass/Vol] 1.15 mmol/L Normal 1.08-1.30 [facility] Comment on above: Order Comment: Speci men Type: ARTERIAL BLOOD SPECIMEN Performed By: #### A LLBG ####[facility]ATORYCLIA [id number] [address] Carboxyhemoglobin (BldA) [Mass fraction] 1.4 % Normal 0.0-2.0 [facility] Comment on above: Order Comment: Speci men Type: ARTERIAL BLOOD SPECIMEN Result Comment: Carb oxyhemoglobin Reference Range for Smokers: 2.0-8.0% Performed By: #### A LLBG ####[facility]ATORYCLIA [id number] [address] CO2 (Bld) [Partial pressure] 59 mm Hg High 36-46 [facility] Comment on above: Order Comment: Speci men Type: ARTERIAL BLOOD SPECIMEN Performed By: #### A LLBG ####[facility]ORYCLIA [id number] [address] OF [place] CO2 [Moles/Vol] 24.5 mmol/L Normal 22-28 [facility] Comment on above: Order Comment: Speci men Type: ARTERIAL BLOOD SPECIMEN Performed By: #### A LLBG ####[facility]ATORYCLIA [id number] [address] CO2 adjusted to patient's actual temperature (Bld) [Partial pressure] 58 mmHg High 36-46 [facility] Comment on above: Order Comment: Speci men Type: ARTERIAL BLOOD SPECIMEN Performed By: #### A LLBG ####[facility]ORATORYCLIA [id number] [place] [address] [place] FIO2 40 % Normal [facility] Comment on above: Order Comment: Speci men Type: ARTERIAL BLOOD SPECIMEN Performed By: #### A LLBG ####[facility]ORYCLIA [id number] [address] STATES OF [place] Glucose [Mass/Vol] 128 mg/dL High 60-105 [facility] Comment on above: Order Comment: Speci men Type: ARTERIAL BLOOD SPECIMEN Performed By: #### A LLBG ####[facility]ORYCLIA [id number] [address] STATES [place] HCO3 (Bld) [Moles/Vol] 26 mmol/L Normal 22-26 [place] Comment on above: Order Comment: Speci men Type: ARTERIAL BLOOD SPECIMEN Performed By: #### A LLBG ####[facility]ORYCLIA [id number] [address] [place] Hematocrit (Bld) [Volume fraction] 35.6 % Low 39.0-51.0 [facility] Comment on above: Order Comment: Speci men Type: ARTERIAL BLOOD SPECIMEN Performed By: #### A LLBG ####[facility]ORYCLIA [id number] [address] [place] Hemoglobin (Bld) [Mass/Vol] 11.5 g/dL Low 13.0-17.0 [facility] Comment on above: Order Comment: Speci men Type: ARTERIAL BLOOD SPECIMEN Performed By: #### A LLBG ####[facility]ORYCLIA [id number] [address] STATES [place] INHALED TIDAL VOLUME (ML) 500 Normal [facility] Comment on above: Order Comment: Speci men Type: ARTERIAL BLOOD SPECIMEN Performed By: #### A LLBG ####[facility]ORYCLIA [id number] [address] [place] INVASIVE VENTILATOR MODE PRVC=Pressure Regulated Volume Control Normal [facility] Comment on above: Order Comment: Speci men Type: ARTERIAL BLOOD SPECIMEN Performed By: #### A LLBG ####[facility]ORYCLIA [id number] [place], [place] [id number] [place] [address] Methemoglobin (Bld) [Mass fraction] % Normal 0.0-1.5 [facility] Comment on above: Order Comment: Speci men Type: ARTERIAL BLOOD SPECIMEN Performed By: #### A LLBG ####[facility]ORYCLIA [id number] [address] OF [place] O2 THERAPY Ventilator Normal [facility] Comment on above: Order Comment: Speci men Type: ARTERIAL BLOOD SPECIMEN Performed By: #### A LLBG ####[facility]ORYCLIA [id number] [address] Oxygen (Bld) [Partial pressure] 88 mm Hg Normal 85-95 [facility] Comment on above: Order Comment: Speci men Type: ARTERIAL BLOOD SPECIMEN Performed By: #### A LLBG ####[facility]ORYCLIA [id number] [address] OF [facility] Oxygen adjusted to patient's actual temperature (Bld) [Partial pressure] 86.5 mmHg Normal 85-95 [facility] Comment on above: Order Comment: Speci men Type: ARTERIAL BLOOD SPECIMEN Performed By: #### A LLBG ####[facility]ORYCLIA [id number] [address] OXYGEN SATURATION, ARTERIAL 95 % Normal 95-98 [facility] Comment on above: Order Comment: Speci men Type: ARTERIAL BLOOD SPECIMEN Performed By: #### A LLBG ####[facility]ORYCLIA [id number] [address] OF [place] Oxyhemoglobin (BldA) [Mass fraction] 93 % Low 95-98 [facility] Comment on above: Order Comment: Speci men Type: ARTERIAL BLOOD SPECIMEN Performed By: #### A LLBG ####[facility]ORYCLIA [id number] [address] OF [place] PEEP/CPAP 5 cmH2O Normal [facility] Comment on above: Order Comment: Speci men Type: ARTERIAL BLOOD SPECIMEN Performed By: #### A LLBG ####[facility]ORYCLIA [id number] [address] pH (Bld) 7.27 [pH] Low 7.35-7.45 [facility] Comment on above: Order Comment: Speci men Type: ARTERIAL BLOOD SPECIMEN Performed By: #### A LLBG ####[facility]ORYCLIA [id number] [address] pH adjusted to patient's actual temperature (Bld) 7.28 Low 7.35-7.45 [facility] Comment on above: Order Comment: Speci men Type: ARTERIAL BLOOD SPECIMEN Performed By: #### A LLBG ####[facility]ORYCLIA [id number] [address] Potassium [Moles/Vol] 3.3 mmol/L Low 3.5-5.0 [facility] Comment on above: Order Comment: Speci men Type: ARTERIAL BLOOD SPECIMEN Performed By: #### A LLBG ####[facility]ORYCLIA [id number] [address] SET VENTILATOR RESPIRATORY RATE (BPM) 14 BPM Normal [facility] Comment on above: Order Comment: Speci men Type: ARTERIAL BLOOD SPECIMEN Performed By: #### A LLBG ####[facility]ORYCLIA [id number] [address] Sodium [Moles/Vol] 141 mmol/L Normal 136-144 [facility] Comment on above: Order Comment: Speci men Type: ARTERIAL BLOOD SPECIMEN Performed By: #### A LLBG ####[facility]ORYCLIA [id number] [address] Bacteria CSF Culton 06-01-19 22 Bacteria identified Cx Nom (CSF) CULTURE, CSF: No growth 14 days GRAM STAIN: No organisms seen Rare Polymorphonuclear leukocytes Moderate Red Blood Cells Gram stain performed on cytospun specimen. Normal [facility] Comment on above: Performed By: #### 6 06-4 ####[facility]ORYCLIA [id number] [address] Bacteria Spec Resp Culton Bacteria identified Respiratory culture Nom (Unsp spec) CULTURE, RESPIRATORY: No growth 2 days GRAM STAIN: No organisms seen No Polymorphonuclear Leukocytes Normal [facility] Comment on above: Performed By: #### 3 2355-0 ####[facility]ORYCLIA [id number] [address] [facility] Basic metabolic 2000 panelon 06-01-2021 Anion gap [Moles/Vol] 8 mmol/L Low 9-18 [facility] Comment on above: Order Comment: Speci men Type: BLOOD SPECIMEN Performed By: #### 2 4321-2, , 2776-05 ####[facility]ORYCLIA [id number] [address] Calcium [Mass/Vol] 7.8 mg/dL Low 8.5-10.2 [facility] Comment on above: Order Comment: Speci men Type: BLOOD SPECIMEN Performed By: #### 2 4321-2, , 2776-05 ####[facility]ORYCLIA [id number] [address] Chloride [Moles/Vol] 109 mmol/L High 97-105 [facility] Comment on above: Order Comment: Speci men Type: BLOOD SPECIMEN Performed By: #### 2 4321-2, , 2776-05 ####[facility]ORYCLIA [id number] [address] [place] CO2 [Moles/Vol] 26 mmol/L Normal 22-30 [facility] Comment on above: Order Comment: Speci men Type: BLOOD SPECIMEN Performed By: #### 2 4321-2, , 2776-05 ####[facility]ORYCLIA [id number] [address] [place] Creatinine [Mass/Vol] 0.82 mg/dL Normal 0.73-1.22 [facility] Comment on above: [facility] B[facility]IM[facility] Performed By: #### 2 4321-2, 93206-6, 2776-05 ####[facility]ORYCLIA [id number] [address] [place] GFR/1.73 sq M.predicted MDRD (S/P/Bld) [Vol rate/Area] mL/min/{1.73_m2} Normal [facility] Comment on above: Order [facility] Type: BLOOD SPECIMEN Result Comment: >60e GFR [...] #### 2 4321-2, , 2776-05 ####[facility]ATORYCLIA [id number] [place] [id number] [place] Glucose [Mass/Vol] 105 mg/dL High 74-99 [facility] Comment on above: Order Comment: [facility] Type: BLOOD SPECIMEN Result Comment: The [place] [employer] (ADA) provides guidance for cutoff [...] Standards of Medical Care in Diabetes 2016, [place] [employer]. Diabetes Care. 2016.39(Suppl 1). Performed By: #### 2 4321-2, , 2776-05 ####[facility]ORYCLIA [id number] [address] Potassium [Moles/Vol] 3.8 mmol/L Normal 3.7-5.1 [facility] Comment on above: Order Comment: Speci men Type: BLOOD SPECIMEN Performed By: #### 2 4321-2, , 2776-05 ####[facility]ORYCLIA [id number] [address] Sodium [Moles/Vol] 143 mmol/L Normal 136-144 [facility] Comment on above: Order Comment: Speci men Type: BLOOD SPECIMEN Performed By: #### 2 4321-2, , 2776-05 ####[facility]ORYCLIA [id number] [address] Urea nitrogen [Mass/Vol] 15 mg/dL Normal 9-24 [facility] Comment on above: Order Comment: Speci men Type: BLOOD SPECIMEN Performed By: #### 2 4321-2, , 2776-05 ####[facility]ORYCLIA [id number] [address] CBC panel Auto (Bld)on 06-01 Erythrocyte distribution width (RBC) [Ratio] 15.4 % High 11.5-15.0 [facility] Comment on above: Order Comment: Speci men Type: BLOOD SPECIMEN Performed By: #### 5 8410-2 ####[facility]ORYCLIA [id number] [address] Hematocrit (Bld) [Volume fraction] 38.4 % Low 39.0-51.0 [facility] Comment on above: Order Comment: Speci men Type: BLOOD SPECIMEN Performed By: #### 5 8410-2 ####[facility]ORYCLIA [id number] [address] Hemoglobin (Bld) [Mass/Vol] 11.1 g/dL Low 13.0-17.0 [facility] Comment on above: Order Comment: Speci men Type: BLOOD SPECIMEN Performed By: #### 5 8410-2 ####[facility]ORYCLIA [id number] [address] MCH (RBC) [Entitic mass] 26.9 pg Normal 26.0-34.0 [facility] Comment on above: Order Comment: Speci men Type: BLOOD SPECIMEN Performed By: #### 5 8410-2 ####[facility]ORYCLIA [id number] [address] MCHC (RBC) [Mass/Vol] 28.9 g/dL Low 30.5-36.0 [facility] Comment on above: Order Comment: Speci men Type: BLOOD SPECIMEN Performed By: #### 5 8410-2 ####[facility]ORYCLIA [id number] [address] MCV (RBC) [Entitic vol] 93.2 fL Normal 80.0-100.0 [facility] Comment on above: Order Comment: Speci men Type: BLOOD SPECIMEN Performed By: #### 5 8410-2 ####[facility]ORYCLIA [id number] [address] Nucleated RBC (Bld) [#/Vol] 10*3/uL Normal <0.01 [facility] Comment on above: Order Comment: Speci men Type: BLOOD SPECIMEN Performed By: #### 5 8410-2 ####[facility]ORYCLIA [id number] [address] Platelet mean volume (Bld) [Entitic vol] 10.2 fL Normal 9.0-12.7 [facility] Comment on above: Order Comment: Speci men Type: BLOOD SPECIMEN Performed By: #### 5 8410-2 ####[facility]ORYCLIA [id number] [address] Platelets (Bld) [#/Vol] 231 10*3/uL Normal 150-400 [facility] Comment on above: Order Comment: Speci men Type: BLOOD SPECIMEN Performed By: #### 5 8410-2 ####[facility]ORATORYCLIA [id number] [address] RBC (Bld) [#/Vol] 4.12 10*6/uL Low 4.20-6.00 [facility] Comment on above: Order Comment: Speci men Type: BLOOD SPECIMEN Performed By: #### 5 8410-2 ####[facility]ORYCLIA [id number] [address] WBC (Bld) [#/Vol] 10.99 10*3/uL Normal 3.70-11.00 [facility] Comment on above: Order Comment: Speci men Type: BLOOD SPECIMEN Performed By: #### 5 8410-2 ####[facility]ORYCLIA [id number] [address] CONSULT PROGon 06-01-2021 CONSULT PROG Normal [facility] CSF MANUAL DIFFon 06-01-2021 DIF TTL, CSF 100 cells counted Normal [facility] Comment on above: Order Comment: Speci men Type: CEREBROSPINAL FLUID Performed By: #### 3 4563-7, [id number] ####[facility]ATORYCLIA [id number] [address] OF [facility] LYMPH%, CSF 11 % Low 50-90 [facility] Comment on above: Order Comment: Speci men Type: CEREBROSPINAL FLUID Performed By: #### 3 4563-7, [id number] ####[facility]ORYCLIA [id number] [address] MONO%, CSF 10 % Normal 10-50 [facility] Comment on above: Order Comment: Speci men Type: CEREBROSPINAL FLUID Performed By: #### 3 4563-7, [id number] ####[facility]ORYCLIA [id number] [address] NEUT%, CSF 79 % High 0-3 [facility] Comment on above: Order Comment: Speci men Type: CEREBROSPINAL FLUID Performed By: #### 3 4563-7, [id number] ####[facility]ATORYCLIA [id number] [address] BRAIN WO IVCONon 06-01-19 CT BRAIN WO IVCON Normal [facility] Cell count panel (CSF)on Clarity (CSF) Clear Normal Clear [facility] Comment on above: Order Comment: Speci men Type: CEREBROSPINAL FLUID Performed By: #### 3 4563-7, [id number] ####[facility]ORYCLIA [id number] [address] Clarity (Unsp spec) Not Indicated Normal Clear [place] Comment on above: Order Comment: Speci men Type: CEREBROSPINAL FLUID Performed By: #### 3 4563-7, [id number] ####[facility]ATORYCLIA [id number] [address] Color (CSF) Colorless Normal Colorless [facility] Comment on above: Order Comment: Speci men Type: CEREBROSPINAL FLUID Performed By: #### 3 4563-7, [id number] ####[facility]ORYCLIA [id number] [address] Color (Spun CSF) Not Indicated Normal Colorless [facility] Comment on above: Order Comment: Speci men Type: CEREBROSPINAL FLUID Performed By: #### 3 4563-7, [id number] ####[facility]ORYCLIA [id number] [address] CSF TUBE NUMBER [employer] Normal [place] Comment on above: Order Comment: Speci men Type: CEREBROSPINAL FLUID Performed By: #### 3 4563-7, [id number] ####[facility]ORYCLIA [id number] [address] RBC Manual cnt (CSF) [#/Vol] 171 cells/uL High 0-5 [facility] Comment on above: Order Comment: Speci men Type: CEREBROSPINAL FLUID Performed By: #### 3 4563-7, [id number] ####[facility]ORATORYCLIA [id number] [address] WBC Manual cnt (CSF) [#/Vol] 5 cells/uL Normal 0-5 [facility] Comment on above: Order Comment: Speci men Type: CEREBROSPINAL FLUID Performed By: #### 3 4563-7, [id number] ####[facility] [facility]ATORYCLIA [id number] [address] FUNGAL CULTUREon 06-01-2021 FUNGAL CULTURE CULTURE, FUNGAL: No Fungus isolated after [address] [facility] Comment on above: Performed By: #### F CUL ####[facility] LABORATORYCLIA [id number] [address] Glucose CSF-mCncon 2 Glucose (CSF) [Mass/Vol] 78 mg/dL High 40-70 [facility] Comment on above: Order Comment: Speci men Type: CEREBROSPINAL FLUID Result Comment: Lumb ar CSF glucose values of healthy patients are approximately 60% of the plasma values and must always be compared with a concurrently measured plasma value for adequate clinical interpretation.References: 1. Glucose HK (GLUC3) [package insert V 12.0 Citizen Of [place]]. [employer], [place], [place]. September 2015. 2. Michelle Moore, He, H. (2015). Chapter 7: Glucose and Lactate. F. Irina rose al.(eds.), Cerebrospinal Fluid in Clinical Neurology. [place]: [employer]. Performed By: #### 2 342-4, 2880-3 ####[facility] LABORATORYCLIA [id number] [address] HERPES SIMPLEX CSFon 022 HERPES SIMPLEX CSF HSV PCR SPEC SOURCE: Cerebrospinal Fluid HSV-1: Negative for Herpes Simplex Virus Type 1 by PCR HSV-2: Negative for Herpes Simplex Virus Type 2 by PCR Normal [facility] Comment on above: Performed By: #### H SPC ####[facility] REFERENCE LABCLIA [id number] [place] [address] [place] Lactate (Bld) [Moles/Vol]on 06-01-2021 Lactate [Moles/Vol] 0.5 mmol/L Normal 0.5-2.2 [facility] Comment on above: Order Comment: Speci men Type: BLOOD SPECIMEN Performed By: #### 3 2693-4 ####[facility] LABORATORYCLIA [id number] [place] [address] [place] MENINGITIS ENCEPHALITIS BIOF IREon 06-01-2021 MENINGITIS ENCEPHALITIS BIOFIRE Negative Normal [facility] Comment on above: Order Comment: Speci men Type: CEREBROSPINAL FLUID Performed By: #### M GEBF ####[facility] SYSTEMCL[facility] [id number] [address] Magnesium SerPl-mCncon 06-01 Magnesium [Mass/Vol] 2.2 mg/dL Normal 1.7-2.3 [facility] Comment on above: Order Comment: Speci men Type: BLOOD SPECIMEN Performed By: #### 2 4321-2, 45861-4, 2777-1 ####[facility] LABORATORYCLIA [id number] [address] [place] Microorganism Spec Culton Microorganism identified Cx Nom (Unsp spec) CULTURE, AFB: No Acid Fast Bacilli isolated after 42 days AFB STAIN: No acid fast bacilli seen by flurochrome stain Normal [facility] Comment on above: Performed By: #### 1 1475-1 ####[facility] LABORATORYCLIA [id number] [address] [place] PROCALCITONIN (LAB)on 2021 Procalcitonin [Mass/Vol] 0.08 ng/mL Normal <0.09 [facility] Comment on above: Order Comment: Speci men Type: BLOOD SPECIMEN Result Comment: For a guided interpretation of test results, please visit the Change in Procalcitonin Calculator, [email or web address]. Performed By: #### P ROCAL ####[facility] LABORATORYCLIA [id number] [address] OF [facility] Phosphate SerPl-ncon 06-01 Phosphate [Mass/Vol] 3.5 mg/dL Normal 2.7-4.8 [facility] Comment on above: Order Comment: Speci men Type: BLOOD SPECIMEN Performed By: #### 2 4321-2, 55246-5, 2777-1 ####[facility] LABORATORYCLIA [id number] [address] Prot CSF-ncon 06-01-2021 Protein (CSF) [Mass/Vol] 52 mg/dL High 15-45 [facility] Comment on above: Order Comment: Speci men Type: CEREBROSPINAL FLUID Performed By: #### 2 342-4, 2880-3 ####[facility] LABORATORYCLIA [id number] [address] Vancomycin random [Mass/Vol] on 06-01-2021 Vancomycin [Mass/Vol] 14.6 ug/mL Normal 10.0-20.0 [facility] Comment on above: Order Comment: Speci men Type: BLOOD SPECIMEN Result Comment: Refe rence ranges and high/low indicator flags are provided as general guidelines only. The treating physician must determine appropriate target levels/dosing based on the specific clinical situation. Performed By: #### 4 091-5 ####[facility] LABORATORYCLIA [id number] [address] XR CHEST 1V FRONTALon 2021 XR CHEST 1V FRONTAL Normal [facility] XR CHEST 1V FRONTAL Normal [facility] XR NECK SOFT TISSUE 2V AP/LA Ton 06-01-2021 XR NECK SOFT TISSUE 2V AP/LAT Normal [facility] XR SKULL 2V AP/LATon 022 XR SKULL 2V AP/LAT Normal [facility] ALLIED HEALTHon 05-31-2021 ALLIED HEALTH HNO ID: [id number] Author: Christina Lynne RT(R) Service: Radiology Author Type: Technologist Type: Allied Health Filed: 05/31/2021 5:48 PM Note Text: MRI tomorrow per RN. Normal [facility] ALLIED HEALTH Normal [facility] ALLIED HEALTH Normal [facility] ALLIED HEALTH Normal [facility] ANES POSTPROC EVALon 022 ANES POSTPROC EVAL Normal [facility] ANES PRE-OPon 05-31-2021 ANES PRE-OP Normal [facility] BRIEF OP NOTon 05-31-2021 BRIEF OP NOT Normal [facility] Bacteria Bld Culton 05-31-19 22 Bacteria identified Cx Nom (Bld) CULTURE, BLOOD: No growth 5 days Normal [facility] Comment on above: Performed By: #### 6 00-7 ####[facility] LABORATORYCLIA [id number] [address] [place] Bacteria CSF Culton 05-31-19 22 Bacteria identified Cx Nom (CSF) CULTURE, CSF: No growth 14 days GRAM STAIN: No organisms seen Rare Polymorphonuclear leukocytes Rare Red Blood Cells Gram stain performed on cytospun specimen. Normal [facility] Comment on above: Performed By: #### 6 06-4 ####[facility] LABORATORYCLIA [id number] [address] Basic metabolic 2000 panelon 05-31-2021 Anion gap [Moles/Vol] 9 mmol/L Normal 9-18 [facility] Comment on above: Order Comment: Speci men Type: BLOOD SPECIMEN Performed By: #### 2 777-1, 31138-9, ####[facility] LABORATORYCLIA [id number] [address] [place] Calcium [Mass/Vol] 8.2 mg/dL Low 8.5-10.2 [facility] Comment on above: Order Comment: Speci men Type: BLOOD SPECIMEN Performed By: #### 2 777-1, 24156-8, ####[facility] LABORATORYCLIA [id number] [address] [place] Chloride [Moles/Vol] 110 mmol/L High 97-105 [facility] Comment on above: Order Comment: Speci men Type: BLOOD SPECIMEN Performed By: #### 2 777-1, , ####[facility] LABORATORYCLIA [id number] [address] [place] CO2 [Moles/Vol] 27 mmol/L Normal 22-30 [facility] Comment on above: Order Comment: Speci men Type: BLOOD SPECIMEN Performed By: #### 2 777-1, , ####[facility] LABORATORYCLIA [id number] [address] STATES [facility] Creatinine [Mass/Vol] 0.85 mg/dL Normal 0.73-1.22 [facility] Comment on above: Order Comment: Speci men Type: BLOOD SPECIMEN Performed By: #### 2 777-1, , ####[facility] LABORATORYCLIA [id number] [address] [place] GFR/1.73 sq M.predicted MDRD (S/P/Bld) [Vol rate/Area] mL/min/{1.73_m2} Normal [facility] Comment on above: Order [...] actual GFR. Performed By: #### 2 777-1, 80801-4, ####[facility] LABORATORYCLIA [id number] [address] [place] Glucose [Mass/Vol] 111 mg/dL High 74-99 [facility] Comment on above: Order Comment: Speci men Type: BLOOD SPECIMEN Result Comment: The [place] Diabetes Association (ADA) provides guidance for cutoff [...] Standards of Medical Care in Diabetes 2016, [place] Diabetes Association. Diabetes Care. 2016.39(Suppl 1). Performed By: #### 2 777-1, 39432-7, ####[facility] LABORATORYCLIA [id number] [address] Potassium [Moles/Vol] 3.7 mmol/L Normal 3.7-5.1 [facility] Comment on above: Order Comment: Speci men Type: BLOOD SPECIMEN Performed By: #### 2 777-1, , ####[facility] LABORATORYCLIA [id number] [address] Sodium [Moles/Vol] 146 mmol/L High 136-144 [facility] Comment on above: Order Comment: Speci men Type: BLOOD SPECIMEN Performed By: #### 2 777-1, , ####[facility] LABORATORYCLIA [id number] [address] STATES [facility] Urea nitrogen [Mass/Vol] 16 mg/dL Normal 9-24 [facility] Comment on above: Order Comment: Speci men Type: BLOOD SPECIMEN Performed By: #### 2 777-1, , ####[facility] LABORATORYCLIA [id number] [address] OF [facility] CASE MGT INIT ASSESon 2021 CASE MGT INIT ASSES Normal [facility] CBC W Auto Differential pane l (Bld)on 05-31-2021 Basophils (Bld) [#/Vol] 0.04 10*3/uL Normal <0.11 [facility] Comment on above: Order Comment: Speci men Type: BLOOD SPECIMEN Performed By: #### 5 7021-8 ####[facility]ORYCLIA [id number] [address] Basophils/100 WBC (Bld) 0.5 % Normal [facility] Comment on above: Order Comment: Speci men Type: BLOOD SPECIMEN Performed By: #### 5 7021-8 ####[facility]ATORYCLIA [id number] [address] Differential cell count method Nom (Bld) Auto Normal [facility] Comment on above: Order Comment: Speci men Type: BLOOD SPECIMEN Performed By: #### 5 7021-8 ####[facility]ORYCLIA [id number] [address] STATES OF [facility] Eosinophils (Bld) [#/Vol] 0.27 10*3/uL Normal <0.46 [facility] Comment on above: Order Comment: Speci men Type: BLOOD SPECIMEN Performed By: #### 5 7021-8 ####[facility]ATORYCLIA [id number] [address] Eosinophils/100 WBC (Bld) 3.3 % Normal [facility] Comment on above: Order Comment: Speci men Type: BLOOD SPECIMEN Performed By: #### 5 7021-8 ####[facility]ATORYCLIA [id number] [address] Erythrocyte distribution width (RBC) [Ratio] 15.4 % High 11.5-15.0 [facility] Comment on above: Order Comment: Speci men Type: BLOOD SPECIMEN Performed By: #### 5 7021-8 ####[facility]ORATORYCLIA [id number] [address] Hematocrit (Bld) [Volume fraction] 37.9 % Low 39.0-51.0 [facility] Comment on above: Order Comment: Speci men Type: BLOOD SPECIMEN Performed By: #### 5 7021-8 ####[facility] LABORATORYCLIA [id number] [address] Hemoglobin (Bld) [Mass/Vol] 11.5 g/dL Low 13.0-17.0 [facility] Comment on above: Order Comment: Speci men Type: BLOOD SPECIMEN Performed By: #### 5 7021-8 ####[facility] LABORATORYCLIA [id number] [address] IMMATURE GRAN % 0.4 % Normal [facility] Comment on above: Order Comment: Speci men Type: BLOOD SPECIMEN Performed By: #### 5 7021-8 ####[facility] LABORATORYCLIA [id number] [address] IMMATURE GRAN ABS 0.03 k/uL Normal <0.10 [facility] Comment on above: Order Comment: Speci men Type: BLOOD SPECIMEN Performed By: #### 5 7021-8 ####[facility]ORATORYCLIA [id number] [address] Lymphocytes (Bld) [#/Vol] 1.90 10*3/uL Normal 1.00-4.00 [facility] Comment on above: Order Comment: Speci men Type: BLOOD SPECIMEN Performed By: #### 5 7021-8 ####[facility] LABORATORYCLIA [id number] [address] Lymphocytes/100 WBC (Bld) 23.0 % Normal [facility] Comment on above: Order Comment: Speci men Type: BLOOD SPECIMEN Performed By: #### 5 7021-8 ####[facility] LABORATORYCLIA [id number] [address] MCH (RBC) [Entitic mass] 28.0 pg Normal 26.0-34.0 [facility] Comment on above: Order Comment: Speci men Type: BLOOD SPECIMEN Performed By: #### 5 7021-8 ####[facility] LABORATORYCLIA [id number] [address] MCHC (RBC) [Mass/Vol] 30.3 g/dL Low 30.5-36.0 [facility] Comment on above: Order Comment: Speci men Type: BLOOD SPECIMEN Performed By: #### 5 7021-8 ####[facility] LABORATORYCLIA [id number] [address] MCV (RBC) [Entitic vol] 92.4 fL Normal 80.0-100.0 [facility] Comment on above: Order Comment: Speci men Type: BLOOD SPECIMEN Performed By: #### 5 7021-8 ####[facility] LABORATORYCLIA [id number] [address] Monocytes (Bld) [#/Vol] 0.60 10*3/uL Normal <0.87 [facility] Comment on above: Order Comment: Speci men Type: BLOOD SPECIMEN Performed By: #### 5 7021-8 ####[facility] LABORATORYCLIA [id number] [address] Monocytes/100 WBC (Bld) 7.3 % Normal [facility] Comment on above: Order Comment: Speci men Type: BLOOD SPECIMEN Performed By: #### 5 7021-8 ####[facility]ORYCLIA [id number] [address] Neutrophils (Bld) [#/Vol] 5.41 10*3/uL Normal 1.45-7.50 [facility] Comment on above: Order Comment: Speci men Type: BLOOD SPECIMEN Performed By: #### 5 7021-8 ####[facility]ORYCLIA [id number] [address] Neutrophils/100 WBC (Bld) 65.5 % Normal [facility] Comment on above: Order Comment: Speci men Type: BLOOD SPECIMEN Performed By: #### 5 7021-8 ####[facility] LABORATORYCLIA [id number] [address] Nucleated RBC (Bld) [#/Vol] 10*3/uL Normal <0.01 [facility] Comment on above: Order Comment: Speci men Type: BLOOD SPECIMEN Performed By: #### 5 7021-8 ####[facility] LABORATORYCLIA [id number] [address] Nucleated RBC/100 WBC (Bld) [Ratio] 0.0 /100 WBC Normal 0.0 [facility] Comment on above: Order Comment: Speci men Type: BLOOD SPECIMEN Performed By: #### 5 7021-8 ####[facility] LABORATORYCLIA [id number] [address] Platelet mean volume (Bld) [Entitic vol] 9.8 fL Normal 9.0-12.7 [facility] Comment on above: Order Comment: Speci men Type: BLOOD SPECIMEN Performed By: #### 5 7021-8 ####[facility] LABORATORYCLIA [id number] [address] OF [facility] Platelets (Bld) [#/Vol] 251 10*3/uL Normal 150-400 [facility] Comment on above: Order Comment: Speci men Type: BLOOD SPECIMEN Performed By: #### 5 7021-8 ####[facility] LABORATORYCLIA [id number] [address] RBC (Bld) [#/Vol] 4.10 10*6/uL Low 4.20-6.00 [facility] Comment on above: Order Comment: Speci men Type: BLOOD SPECIMEN Performed By: #### 5 7021-8 ####[facility]ORYCLIA [id number] [address] OF [place] WBC (Bld) [#/Vol] 8.25 10*3/uL Normal 3.70-11.00 [facility] Comment on above: Order Comment: Speci men Type: BLOOD SPECIMEN Performed By: #### 5 7021-8 ####[facility] LABORATORYCLIA [id number] [address] CONSULTon 05-31-2021 CONSULT Normal [facility] CONSULT Normal [facility] CONSULT Normal [facility] CT BRAIN WO IVCONon 05-31-19 CT BRAIN WO IVCON Normal [facility] CT BRAIN WO IVCON Normal [facility] CT CHEST WO IVCONon 05-31-19 CT CHEST WO IVCON Normal [facility] Cortis SerPl-mCncon 05-31-19 Cortisol [Mass/Vol] 31.0 ug/dL High AM: 5.3-22.5, PM: 3.4-16.8 [facility] Comment on above: Order Comment: Speci men Type: BLOOD SPECIMEN Result Comment: Prov ided reference range is from 6-10 AM sample collection time.Cortisol Reference Range: 6-10 AM = 4.8-19.5 ug/dL, 4-8 PM = 2.5-11.9 ug/dL Performed By: #### 2 143-6, 3016-3 ####[facility] LABORATORYCLIA [id number] [address] Cryptoc Ag Spec Ql LAon 05-08 Cryptococcus sp Ag LA Ql (Unsp spec) Negative Normal [facility] Comment on above: Performed By: #### 4 3228-6 ####[facility] LABORATORYCLIA [id number] [address] HISTORY PHYSICALon HISTORY PHYSICAL Normal [facility] Magnesium SerPl-mCncon 05-31 Magnesium [Mass/Vol] 2.2 mg/dL Normal 1.7-2.3 [facility] Comment on above: Order Comment: Speci men Type: BLOOD SPECIMEN Performed By: #### 2 777-1, 27022-6, 53074-6 ####[facility] LABORATORYCLIA [id number] [address] [place] NURSING PROGon 05-31-2021 NURSING PROG Normal [facility] NUTRITIONon 05-31-2021 NUTRITION Normal [facility] OPERATIVE NOon 05-31-2021 OPERATIVE NO Normal [facility] Phosphate SerPl-mCncon 05-31 Phosphate [Mass/Vol] 3.3 mg/dL Normal 2.7-4.8 [facility] Comment on above: Order Comment: Speci men Type: BLOOD SPECIMEN Performed By: #### 2 777-1, 81171-4, 29453-3 ####[facility] LABORATORYCLIA [id number] [address] STAPH AUREUS PCRon S. aureus and MRSA panel MEGAN+probe (Nose) Normal Negative [facility] Comment on above: Order Comment: Speci men Type: SWAB OF INTERNAL NOSE Result Comment: Nega tive for Staphylococcus aureus by PCR.Negative for MRSA by PCR Performed By: #### S APCR ####[facility] LABORATORYCLIA [id number] [address] [place] TSH SerPl-aCncon 05-31-2021 TSH Qn 0.829 m[IU]/L Normal 0.270-4.200 [facility] Comment on above: Order Comment: Speci men Type: BLOOD SPECIMEN Performed By: #### 2 143-6, 3016-3 ####[facility] LABORATORYCLIA [id number] [address] [place] XR CHEST 1V FRONTALon 2021 XR CHEST 1V FRONTAL Normal [facility] XR CHEST 1V FRONTAL Normal [facility] Blood Cultureon 05-30-2021 Bacteria identified Cx Nom (Bld) Culture Result - No growth 5 days Normal [facility] Comment on above: Performed By: #### C AD #### [facility] [address] [place] [address] [facility] [address] [place], [place] [address] Bacteria identified Cx Nom (Bld) Sp. Request/Comment: - 8.2MLS Culture Result - No growth 5 days Normal [facility] Comment on above: Performed By: #### C AD #### [facility] [address] [place] [address] [facility] [address] [place], [place] [address] C-Reactive Proteinon 022 C-Reactive Protein 1.7 mg/dL High <0.9 [facility] Comment on above: Performed By: #### C RP ####[facility] [address] [phone] CNDSon 05-30-2021 CNDS HNO ID: [id number] Author: Columba Carroll PA-C Service: Hospital Medicine Author Type: Physician Archivist Economic History Type: Discharge Summary Filed: 05/30/2021 12:49 PM Note Text: ----- Attestation signed by Ayaka Menjivar MD at 06/01/2021 12:53 PM Attending Note I have personally reviewed the BO note. Agree with above assessment and plan. Other additions or changes: None SIGNATURE: Ayaka Menjivar MD DATE: June 01, 2021 TIME: 12:53 PM ----- DISCHARGE SUMMARY PATIENT NAME: Andrew Sifuentes ADMISSION DATE: 05/29/2021 DISCHARGE DATE: 05/30/2021 ATTENDING PHYSICIAN: Ayaka eMnjivar MD Code Status: Not on file Highest [...] Team: Attending Provider: Ayaka Menjivar MD Physician Archivist Economic History: Columba Carroll PA-C Consulting: Lilo Mendoza MD [...] consulted. Neurology suggested empiric abx coverage for WATCH ELECTRICIAN infection Rocephin and Vancomycin was started. Tele-neuro also suggested an MRI brain be obtained prior to LP to check TRACK VEHICLE REPAIRER shunt and decrease risk of herniation in neurosurgery capable facility. Transfer to [facility] requested. Sepsis lactate was 1.3. ABG showed pO2 67.8, placed patient on 2L NC.Follow B1, B12, and RPR pending. Transitions of Care Critical Issues: - patient transferred for [facility] for management of possible WATCH ELECTRICIAN infection and herniation. LABS AND PROCEDURES PENDING [...] intravenously q 1 (more content not included)... [facility] CONSULTon 05-30-2021 CONSULT HNO ID: [id number] Author: Juan Carlos Mckenzie MD Service: Infectious [...] vertebrae with counting from the craniocervical junction. Manager Nursing: OG Transcribe Date/Time: May 29 2021 8:59P Dictated by : CARLOS YOUNGER MD This examination was interpreted and the report reviewed and electronically signed by: CARLOS YOUNGER MD on May 29 2021 9:14PM EST ? CT CERVICAL SPINE WO (more content not included)... Normal [facility] CONSULT HNO ID: [id number] Author: Lilo Mendoza MD Service: Neurology General Author Type: Physician Type: Consults Filed: 05/30/2021 10:56 AM Note Text: [facility] TeleNeurology Consult Note Patient seen using [facility]. Recommendations are placed in the chart. Please review. For questions after hours, when teleneurologist is not available, for [place]: Please Page [phone] for the [facility] from 12pm to 8Am Admitting Provider/Consulted by:Hermes Roca MD Time of Note:05/30/2021 Patient Name:Andrew Sifuentes Admit Date:05/29/2021 Hospital Day:0 CC: altered mental status History of Present Illness: Andrew Sifuentes is a 71 year old unknown handed male with limited information about past medical history including venous insufficiency s/p EVLT, hydrocepalus s/p TRACK VEHICLE REPAIRER shunt in 1987 with multiple revisions and [...] Reflexes Right Lef (more content not included)... [facility] CONSULT PROGon 05-30-[address] [facility] CONSULT PROG HNO ID: [id number] Author: Shannon Gutierres [facility] Service: Pharmacy Author Type: Pharmacist Type: Consult Progress Note Filed: 05/30/2021 2:35 PM Note Text: PHARMACY VANCOMYCIN DOSING NOTE Patient Name: Andrew Sifuentes Admission Date: 05/29/2021 Date of Consult: 05/30/2021 Time of Consult: 2:32 PM Indication: possible WATCH ELECTRICIAN infection Goal Range: 15-20 mcg/mL RECOMMENDATIONS/PLAN: Pharmacy [...] any questions, please contact inpatient pharmacy at [phone]. Age: [age] year old Allergies: ALLERGIES Allergen [...] Levels: No results found for: IMANI Gutierres [facility] Normal [facility] Creatinineon 05-30-2021 Creatinine [Mass/Vol] 0.86 mg/dL Normal 0.73-1.22 [facility] Comment on above: Performed By: #### C RET1 ####[facility] [address] [place], [place] [phone] eGFR- Amer. >60 Normal [facility] Comment on above: Performed By: #### C RET1 ####[facility] [address] [place] [phone] eGFR-All Other Races >60 [facility] Comment on above: Result Comment: [...] at [email or web address]. Performed By: #### C RET1 ####[facility] [address] [place] [phone] Crypto Antigen Deton 022 Crypto Antigen Det Sp. Request/Comment: - SST Test Result - Duplicate request Account Credited [facility] Comment on above: Performed By: #### C AD #### [facility] [place] [address] Crypto Antigen Det Sp. Request/Comment: - SST Test Result - Cryptococcal antigen detection result: Negative By latex agglutination [facility] Comment on above: Performed By: #### C AD #### [facility] [place] [id number] [facility] [address] [place] [address] ED NOTEon 05-30-2021 ED NOTE HNO ID: [id number] Author: Aletha Lopez RN Service: ? Author Type: Registered Nurse Type: ED Notes Filed: 05/29/2021 11:16 PM Note Text: Patient changed for incontinent urine, labs redrawn and sent. Patient aware of plan to be admitted and agrees with plan Normal [facility] HISTORY PHYSICALon 2 HISTORY PHYSICAL Normal [facility] HISTORY PHYSICAL HNO ID: [id number] Author: Hermes Roca MD Service: Hospital Medicine Author Type: Physician Type: HANDP Filed: 05/30/2021 1:03 AM Note Text: DEPARTMENT OF HOSPITAL MEDICINE HISTORY AND PHYSICAL EXAM SERVICE DATE: 05/29/2021 SERVICE TIME: 11:18 PM Primary Care Physician: Mateus Burris MD NIGHT AND WEEKEND COVERAGE: Please page [phone] until 7:30am this morning. After 7:30am please check the treatment team banner and page the appropriate service. 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 Normal [facility] Magnesium SerPl-mCncon 05-30 Magnesium [Mass/Vol] 2.5 mg/dL High 1.7-2.3 [facility] Comment on above: Order Comment: Speci men Type: BLOOD SPECIMEN Performed By: #### 1 9123-9, 2777-1 ####[facility] LABORATORYCLIA [id number] [address] STATES OF [facility] NURSING PROGon 05-30-2021 NURSING PROG HNO ID: [id number] Author: Precious Cervantes RN Service: ? Author Type: Registered Nurse Type: Nursing Progress Note Filed: 05/30/2021 11:26 AM Note Text: Nursing Progress Note Patient Name: Andrew Sifuentes Patient Location: [place] [id number] Daily Note: 0700- Report received from water filterer helper RN, patient resting in bed at this time, call light within reach, bed low and locked. Asked the patient to state his name because water filterer helper RN was unable to complete his admission [...] and consulted neuro. Will continue to monitor. 1119- Patient removed IV. Replaced and started Rocephin. ABG resulted PO2 of 67.8. Placed on 2L NC O2 sat @ 96%. Patient diaphoretic, VS remain stable. Patient unable to respond to questioning other than telling me his first name. Will continue to monitor. This note was completed by: Precious Cervantes [facility] NURSING PROG HNO ID: [id number] Author: Lyubov Day RN Service: ? Author Type: Registered Nurse Type: Nursing Progress Note Filed: 05/30/2021 1:27 AM Note Text: Nursing Progress Note Patient Name: Andrew Sifuentes Patient Location: [place] [id number] 0100: Patient is unresponsive to questions. Patient [...] This note was completed by: Lyubov Day [facility] Phosphate SerPl-mCncon 05-30 Phosphate [Mass/Vol] 3.5 mg/dL Normal 2.7-4.8 [facility] Comment on above: Order Comment: Speci men Type: BLOOD SPECIMEN Performed By: #### 1 9123-9, 2777-1 ####[facility] LABORATORYCLIA [id number] [place] [address] [place] Sepsis Lactateon 05-30-2021 Sepsis Lactate 1.5 mmol/L Normal 0.5-2.0 [facility] Comment on above: Performed By: #### S LACT ####[facility] [address] [place] [phone] Syphilis Ttl w/Reflxon 05-30 Syphilis Interp Cannot exclude recen t Treponemal infection if specimen collected within 7 to 10 days after appearance of suspect lesions or 2 to 3 weeks after an exposure. Clinical correlation is required. Normal [facility] Comment on above: Performed By: #### S YPHTX, B1WB ####[facility] [address] [place], [place] [phone] Syphilis Screen Rslt Non-Reactive Normal Non Reactive [facility] Comment on above: Performed By: #### S YPHTX, B1WB ####[facility] [address] [place], [place] [phone] THERAPY NTon 05-30-2021 THERAPY NT HNO ID: [id number] Author: RADHA Andres/Felecia Service: Occupational Therapy Author Type: Occupational Therapist Type: Therapy (PT/OT/Speech/Resp) Filed: 05/30/2021 10:29 AM Note Text: OCCUPATIONAL THERAPY MISSED VISIT SERVICE DATE: 05/30/2021 SERVICE TIME: 1017 to 1019 ROOM: [place] [address] Attempted Evaluation. Patient not seen due to Not following commands. Per nursing patient was seen by neuro and they are talking about having him transferred to [facility] secondary to shunt concerns. Will re attempt in the event patient continues to be admitted at [place] and is able to participate. SIGNATURE: RADHA Andres/Felecia PATIENT NAME: Andrew Sifuentes DATE: May 30, 2021 TIME: 10:21 AM [facility] THERAPY NT HNO ID: [id number] Author: Bette Velasquez, PT Service: Physical Therapy Author Type: Physical Therapist Type: Therapy (PT/OT/Speech/Resp) Filed: 05/30/2021 8:42 AM Note Text: PHYSICAL THERAPY MISSED VISIT SERVICE DATE: 05/30/2021 SERVICE TIME: 0840 to 0840 ROOM: [place] [address] Attempted Evaluation. Patient not seen due to (pt difficult to awake per RN, very lethargic). Will re-attempt when schedule permits. SIGNATURE: Bette Velasquez PT PATIENT NAME: Andrew Sifuentes DATE: May 30, 2021 TIME: 8:41 AM Normal [facility] Toxicology Screen,Uron 05-30 Amphetamines, Urine Negative Normal Negative [facility] Comment on above: Result Comment: Cuto ff threshold at 1000 ng/mL. Performed By: #### C AD #### [facility] [place] [phone] Barbiturates, Urine Negative Normal Negative [facility] Comment on above: Result Comment: Cuto ff threshold at 200 ng/mL. Performed By: #### C AD #### [facility] [place] [phone] [place] [phone] Benzodiazepines, Ur Negative Normal Negative [facility] Comment on above: Result Comment: Cuto ff threshold at 200 ng/mL. Performed By: #### C AD #### [facility] [place] [phone] [facility] [address] [place] [address] Cannabinoids, Urine Negative Normal Negative [facility] Comment on above: Result Comment: Cuto ff threshold at 50 ng/mL. Performed By: #### C AD #### [facility] [address] [place] [phone] [place] [address] Cocaine, Urine Negative Normal Negative [facility] Comment on above: Result Comment: Cuto ff threshold at 300 ng/mL. Performed By: #### C AD #### [facility] [address] [place] [phone] [place] [address]7700 [place] [phone] Opiates, Urine Negative Normal Negative [facility] Comment on above: Result Comment: Cuto ff threshold at 300 ng/mL. Performed By: #### C AD #### [facility] [place] [phone] [place] [address] Oxycodone, Urine Negative Normal Negative [facility] Comment on above: Result Comment: Cuto ff [...] the same specimen through Client Services ([phone]) if contacted within 48 hours of initial testing. [1]Substance Abuse and Mental Health Services Administration (2012). Clinical Drug Testing in Primary Care Technical Assistance Publication Series 32. Department of Health and Human Services, [place], p.10. Performed By: #### C AD #### [facility] [place] [phone] [place] 287700 [place] [address] Phencyclidine, Urine Negative Normal Negative [facility] Comment on above: Result Comment: Cuto ff threshold at 25 ng/mL. Performed By: #### C AD #### [facility] [place] [phone] [place] 287700 [place] [phone] Troponin Ton 05-30-2021 Troponin T <0.010 Normal 0.000-0.029 [facility] Comment on above: Performed By: #### T NT ####[facility] [address] [place] [phone] Urinalysison 05-30-2021 Bilirubin, Urine Negative Normal Negative [facility] Comment on above: Performed By: #### C AD #### [facility] [address] [place] [phone] [facility] [address] [place] [address] Clarity (U) Slightly Cloudy Critically abnormal Clear [facility] Comment on above: Performed By: #### C AD #### [facility] [address] [place] [phone] [facility] [address] [place] [address] Color (U) Yellow Normal Yellow [facility] Comment on above: Performed By: #### C AD #### [facility] [address] [place] [phone] [facility] [address] [place], [place] [address] Glucose Ql (U) Negative Normal Negative [facility] Comment on above: Performed By: #### C AD #### [facility] [address] [place] [address] [facility] [address] [place], [place] [address] Hemoglobin/Blood,Ur Negative Normal Negative [facility] Comment on above: Performed By: #### C AD #### [facility] [address] [place] [phone] [facility] [address] [place], [place] [address] Ketones Ql (U) Negative Normal Negative [facility] Comment on above: Performed By: #### C AD #### [facility] [address] [place] [phone] [facility] [address] [place], [place] [address] Leukest Negative Normal Negative [facility] Comment on above: Performed By: #### C AD #### [facility] [address] [place] [address] [facility] [address] [place], [place] [address] Nitrite Ql (U) Negative Normal Negative [facility] Comment on above: Performed By: #### C AD #### [facility] [place] [address] [place] [address] pH (U) 8.5 [pH] High 5.0-8.0 [facility] Comment on above: Performed By: #### C AD #### [facility] [address] [place], [place] [phone] [place] [address] Protein, Urine Negative Normal Negative [facility] Comment on above: Performed By: #### C AD #### [facility] [address] [place] [address] [address] Specific [place], Ur 1.015 Normal 1.005-1.030 [facility] Comment on above: Performed By: #### C AD #### [facility] [address] [place] [address] [facility] [address] [place] [address] Urobilinogen Qn (U) 0.2 {Marianne'U}/dL Normal 0.2-1.0 [facility] Comment on above: Performed By: #### C AD #### [facility] [place] [address] [address] Vitamin B1, Whole Blon 05-30 Vitamin B1 (TDP), WB 207.1 nmol/L Normal 84.0-213.0 [facility] Comment on above: Result Comment: This assay measures the concentration of thiamine diphosphate (TDP), the primary active form of vitamin B1. Approximately 90 percent of vitamin B1 present in whole blood is TDP. Thiamine and thiamine monophosphate, which comprise the remaining 10 percent, are not measured. This test was developed and its performance characteristics determined by [facility]'s [facility] ([facility]). It has not been cleared or approved by the FDA. [facility] is regulated under CLIA as qualified to perform high complexity testing. This test is used for clinical purposes. It should not be regarded as investigational or for research. Performed By: #### S YPHTX, B1WB ####[facility]95[address] [place], [place] [phone] Vitamin B12on 05-30-2021 Cobalamin (Vitamin B12) [Mass/Vol] 494 pg/mL Normal 232-1245 [facility] Comment on above: Performed By: #### C AD #### [facility] [address] [place] [address] [facility] [address] [place], [place] [address] ALLIED HEALTHon 05-29-2021 ALLIED HEALTH HNO ID: [id number] Author: SOUTH Tang) Service: Radiology Author Type: Technologist Type: Allied [...] Kitty(R) May 29, 2021 8:51 PM Normal [facility] ALLIED HEALTH HNO ID: [id number] Author: Markie Fish Service: ? Author Type: 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 Type: Allied Health Filed: 05/29/2021 8:39 PM [...] Fish May 29, 2021 8:38 PM Normal [facility] CBC and Differentialon 05-29 Abs Baso 0.05 k/uL Normal <0.11 [facility] Comment on above: Performed By: #### C MP, MG1, CBCDIF ####[facility] [address] [place] [address] Abs [place] 0.72 k/uL Normal <0.87 [facility] Comment on above: Performed By: #### C MP, MG1, CBCDIF ####[facility] [address] [place] [address] Abs Neut 7.86 k/uL High 1.45-7.50 [facility] Comment on above: Performed By: #### C MP, MG1, CBCDIF ####[facility] [address] [place] [address] Absolute nRBC <0.01 Normal <0.01 [facility] Comment on above: Performed By: #### C MP, MG1, CBCDIF ####[place] [address] Basophils/100 WBC (Bld) 0.5 % Normal [facility] Comment on above: Performed By: #### C MP, MG1, CBCDIF ####[facility] [address] [place] [address] DTYPE Auto Diff Normal [facility] Comment on above: Performed By: #### C MP, MG1, CBCDIF ####[facility] [address] [place] [address] Eosinophils (Bld) [#/Vol] 0.10 10*3/uL Normal <0.46 [facility] Comment on above: Performed By: #### C MP, MG1, CBCDIF ####[facility] [address] [place] [address] Eosinophils/100 WBC (Bld) 0.9 % Normal [facility] Comment on above: Performed By: #### C MP, MG1, CBCDIF ####[facility] [address] [place] [address] Erythrocyte distribution width (RBC) [Ratio] 15.5 % High 11.5-15.0 [facility] Comment on above: Performed By: #### C MP, MG1, CBCDIF ####[facility] [address] [place] [address] Hematocrit (Bld) [Volume fraction] 41.6 % Normal 39.0-51.0 [facility] Comment on above: Performed By: #### C MP, MG1, CBCDIF ####[facility] [address] [place] [address] Hemoglobin (Bld) [Mass/Vol] 12.7 g/dL Low 13.0-17.0 [facility] Comment on above: Performed By: #### C MP, MG1, CBCDIF ####[facility] [address] [place] [address] Lymphocytes (Bld) [#/Vol] 2.04 10*3/uL Normal 1.00-4.00 [facility] Comment on above: Performed By: #### C MP, MG1, CBCDIF ####[facility] [address] [place] [address] Lymphocytes/100 WBC (Bld) 18.9 % Normal [facility] Comment on above: Performed By: #### C MP, MG1, CBCDIF ####[facility] [address] [place] [address] MCH 27.3 pG Normal 26.0-34.0 [facility] Comment on above: Performed By: #### C MP, MG1, CBCDIF ####[facility] [address] [place] [address] MCHC (RBC) [Mass/Vol] 30.5 g/dL Normal 30.5-36.0 [facility] Comment on above: Performed By: #### C MP, MG1, CBCDIF ####[facility] [address] [place] [address] MCV (RBC) [Entitic vol] 89.5 fL Normal 80.0-100.0 [facility] Comment on above: Performed By: #### C MP, MG1, CBCDIF ####[facility] [address] [place] [address] Monocytes/100 WBC (Bld) 6.7 % Normal [facility] Comment on above: Performed By: #### C MP, MG1, CBCDIF ####[facility] [address] [place] [address] Neutrophils/100 WBC (Bld) 73.0 % Normal [facility] Comment on above: Performed By: #### C MP, MG1, CBCDIF ####[facility] [address] [place] [address] NRBCs 0.0 /100 WBC Normal 0 [facility] Comment on above: Performed By: #### C MP, MG1, CBCDIF ####[facility] [address] [place] [address] Platelet mean volume (Bld) [Entitic vol] 10.1 fL Normal 9.0-12.7 [facility] Comment on above: Performed By: #### C MP, MG1, CBCDIF ####[facility] [address] [place], [place] [phone] Platelets (Bld) [#/Vol] 291 10*3/uL Normal 150-400 [facility] Comment on above: Performed By: #### C MP, MG1, CBCDIF ####[facility] I[address]fu[address] RBC (Bld) [#/Vol] 4.65 10*6/uL Normal 4.20-6.00 [facility] Comment on above: Performed By: #### C MP, MG1, CBCDIF ####[facility] [address] [place] [phone] WBC (Bld) [#/Vol] 10.77 10*3/uL Normal 3.70-11.00 [facility] Comment on above: Performed By: #### C MP, MG1, CBCDIF ####[facility] Assechdmhp0479 [phone] CT BRAIN WO IVCONon 05-29-19 CT BRAIN [...] CLINICAL HISTORY: C-spine trauma, NEXUS/CCR positive (accession [id number]), Head trauma, headache (accession [id number]) TECHNIQUE: Serial axial unenhanced images were obtained from the vertex to the foramen magnum. Spiral, high resolution axial unenhanced images were obtained from the skull base to the cervicothoracic junction with sagittal and coronal planar reconstructions. Dose-Length Product (DLP): 2132 mGy*cm. CT Dose Reduction Employed: Automated exposure control (AEC) COMPARISON: 08/13/[address] RESULT: BRAIN: Post-operative change: Right parietal approach TRACK VEHICLE REPAIRER shunt is intact. The intracranial fragments of [...] vertebrae with counting from the craniocervical junction. Manager Nursing: PSCB Transcribe Date/Time: May 29 2021 8:59P Dictated by : CARLOS YOUNGER MD This examination was interpreted and the report reviewed and electronically signed by: CARLOS YOUNGER MD on May 29 2021 9:14PM EST [id number] [facility] CT CERVICAL SPINE WO IVCONon 05-29-2021 [...] CLINICAL HISTORY: C-spine trauma, NEXUS/CCR positive (accession [id number]), Head trauma, headache (accession [id number]) TECHNIQUE: Serial axial unenhanced images were obtained from the vertex to the foramen magnum. Spiral, high resolution axial unenhanced images were obtained from the skull base to the cervicothoracic junction with sagittal and coronal planar reconstructions. Dose-Length Product (DLP): 2132 mGy*cm. CT Dose Reduction Employed: Automated exposure control (AEC) COMPARISON: 08/13/[address] RESULT: BRAIN: Post-operative change: Right parietal approach TRACK VEHICLE REPAIRER shunt is intact. The intracranial fragments of [...] vertebrae with counting from the craniocervical junction. Manager Nursing: OG Transcribe Date/Time: May 29 2021 8:59P Dictated by : CARLOS YOUNGER MD This examination was interpreted and the report reviewed and electronically signed by: CARLOS YOUNGER MD on May 29 2021 9:14PM EST [id number] Normal [facility] Cepheid Bill only (EXCFR)on 05-29-2021 Cepheid Bill only (EXCFR) Billed for services performed Normal [facility] Comment on above: Performed By: #### C AD #### [facility] [address] [place] [address] [facility] [address] [place], [place] [id number] Comp Metabolic Panelon 05-29 Albumin [Mass/Vol] 4.1 g/dL Normal 3.9-4.9 [facility] Comment on above: Performed By: #### C MP ####[facility] [address] [place] [phone] ALP [Catalytic activity/Vol] 86 U/L Normal 38-113 [facility] Comment on above: Performed By: #### C MP ####[facility] X[address] [place] [phone] ALT [Catalytic activity/Vol] 15 U/L Normal 10-54 [facility] Comment on above: Performed By: #### C MP ####[facility] [address] [place] [address] Anion gap [Moles/Vol] 9 mmol/L Normal 9-18 [facility] Comment on above: Performed By: #### C MP ####[facility] [address] [place] [address] AST [Catalytic activity/Vol] 22 U/L Normal 14-40 [facility] Comment on above: Performed By: #### C MP ####[facility] [address] [place] [address] Bilirubin [Mass/Vol] 0.2 mg/dL Normal 0.2-1.3 [facility] Comment on above: Performed By: #### C MP ####[facility] [address] [place] [address] Calcium [Mass/Vol] 9.1 mg/dL Normal 8.5-10.2 [facility] Comment on above: Performed By: #### C MP ####[facility] [address] [place] [address] Chloride [Moles/Vol] 103 mmol/L Normal 97-105 [facility] Comment on above: Performed By: #### C MP ####[facility] [address] [place] [address] CO2 [Moles/Vol] 29 mmol/L Normal 22-30 [facility] Comment on above: Performed By: #### C MP ####[place] [address] Creatinine [Mass/Vol] 0.89 mg/dL Normal 0.73-1.22 [facility] Comment on above: Performed By: #### C MP ####[facility] [address] [place] [address] eGFR- Amer. >60 Normal [facility] Comment on above: Performed By: #### C MP ####[facility] [address] [place] [address] eGFR-All Other Races >[address] [facility] Comment on above: Result Comment: eGFR [...] at [email or web address]. Performed By: #### C MP ####[facility] [address] [place], [place] [phone] Glucose [Mass/Vol] 120 mg/dL High 74-99 [facility] Comment on above: Result Comment: The [place] Diabetes [employer] (ADA) provides guidance for cutoff [...] Standards of Medical Care in Diabetes 2016, [place] [employer]. Diabetes Care. 2016.39(Suppl 1). Performed By: #### C MP ####[facility] D[address]ad[phone] Potassium [Moles/Vol] 4.2 mmol/L Normal 3.7-5.1 [facility] Comment on above: Performed By: #### C MP ####[facility] [address] [place], [place] [phone] Protein [Mass/Vol] 7.1 g/dL Normal 6.3-8.0 [facility] Comment on above: Performed By: #### C MP ####[facility] Gy[address]hbprsl4026 [phone] Sodium [Moles/Vol] 141 mmol/L Normal 136-144 [facility] Comment on above: Performed By: #### C MP ####[facility] [address] [place] [address] Urea nitrogen [Mass/Vol] 11 mg/dL Normal 9-24 [facility] Comment on above: Performed By: #### C MP ####[facility] [address]64 [place] [address] Albumin [Mass/Vol] 4.1 g/dL Normal 3.9-4.9 [facility] Comment on above: Performed By: #### C MP, MG1, CBCDIF ####[facility] X[address] [place] [address] ALP [Catalytic activity/Vol] 86 U/L Normal 38-113 [facility] Comment on above: Performed By: #### C MP, MG1, CBCDIF ####[facility] [address] [place] [address] ALT Unable to assay due to interference from hemolysis. Suggest reorder as clinically indicated. Normal 10-54 [facility] Comment on above: Result Comment: Call ed to ED StephanLubna at [phone] on 05.29.21 by Sabino Performed By: #### C MP, MG1, CBCDIF ####[facility] [address] [place] [address] Anion gap [Moles/Vol] 12 mmol/L Normal 9-18 [facility] Comment on above: Performed By: #### C MP, MG1, CBCDIF ####[facility] [address] [place] [address] AST Unable to assay due to interference from hemolysis. Suggest reorder as clinically indicated. Normal 14-40 [facility] Comment on above: Result Comment: Call ed to ED StephanLubna at [phone] on 05.29.21 by Sabino Performed By: #### C MP, MG1, CBCDIF ####[facility] [address] [place] [address] Bilirubin [Mass/Vol] 0.2 mg/dL Normal 0.2-1.3 [facility] Comment on above: Performed By: #### C MP, MG1, CBCDIF ####[facility] [address] [place] [address] Calcium [Mass/Vol] 9.0 mg/dL Normal 8.5-10.2 [facility] Comment on above: Performed By: #### C MARÍA ELENA MG1, CBCDIF ####[facility] [address] [place] [address] Chloride [Moles/Vol] 102 mmol/L Normal 97-105 [facility] Comment on above: Performed By: #### C MP, MG1, CBCDIF ####[facility] [address] [place] [address] CO2 [Moles/Vol] 27 mmol/L Normal 22-30 [facility] Comment on above: Performed By: #### C MARÍA ELENA MG1, CBCDIF ####[facility] [address] [place] [address] Creatinine [Mass/Vol] 0.75 mg/dL Normal 0.73-1.22 [facility] Comment on above: Performed By: #### C MARÍA ELENA, MG1, CBCDIF ####[facility] [address] [place] [address] eGFR- Amer. >60 Normal [facility] Comment on above: Performed By: #### C MARÍA ELENA MG1, CBCDIF ####[facility] [address] [place] [address] eGFR-All Other Races >[address] [facility] Comment on above: Result Comment: eGFR [...] Performed By: #### C MP, MG1, CBCDIF ####[facility] [address] [place] [address] Glucose [Mass/Vol] 112 mg/dL High 74-99 [facility] Comment on above: Result Comment: The [place] Diabetes Association (ADA) provides guidance for cutoff [...] Standards of Medical Care in Diabetes 2016, [place] [employer]. Diabetes Care. 2016.39(Suppl 1). Performed By: #### C MP, MG1, CBCDIF ####[facility] [address] [place] [address] Potassium Unable to assay due to interference from hemolysis. Suggest reorder as clinically indicated. Normal 3.7-5.1 [facility] Comment on above: Result Comment: Call ed to LISA Rea at [phone] on 05.29.21 by Sabino Performed By: #### C MP, MG1, CBCDIF ####[facility] [address] [place] [phone] Protein [Mass/Vol] 7.3 g/dL Normal 6.3-8.0 [facility] Comment on above: Performed By: #### C MP, MG1, CBCDIF ####[facility] [address] [place] [phone] Sodium [Moles/Vol] 141 mmol/L Normal 136-144 [facility] Comment on above: Performed By: #### C MP, MG1, CBCDIF ####[facility] [address] [place] [phone] Urea nitrogen [Mass/Vol] 11 mg/dL Normal 9-24 [facility] Comment on above: Performed By: #### C MP, MG1, CBCDIF ####[facility] [address] [place] [phone] ED PROV NOTEon 05-29-2021 ED PROV NOTE HNO ID: [id number] Author: Shanell Slaughter MD Service: ? Author [...] No radiographic evidence of acute cardiopulmonary disease. Manager Nursing: PSCShilpa Transcribe Date/Time: May 29 2021 8:53P [...] vertebrae with counting from the craniocervical junction. Manager Nursing: OG Transcribe Date/Time: May 29 2021 8:59P [...] vertebrae with counting from the craniocervical junction. Manager Nursing: OG Transcribe Date/Time: May 29 (more content not included)... Normal [facility] ED PROV NOTE HNO ID: [id number] Author: Flavio Pandya DO Service: Emergency Medicine Author Type: Physician Type: ED Provider Notes Filed: 05/29/2021 7:10 PM Note Text: ED Provider Note Patient Name: Andrew Sifuentes SERVICE DATE: 05/29/21 History Patient presents with: Fall 71 yo male non-smoker, hx of HTN, 2 [employer] shunts, PE (not on anticoagulation now), asthma, [...] with assistance from bedside clinician. Provider Location: [facility] Patient Location: Outpatient [facility] Physical Exam Vital [...] Pandya, DO Flavio Pandya, DO 05/29/211909 Normal [facility] EXCOVD, Flu A/B, RSV (On int erfaces 1102,1120)on 05-29-2021 Influenza A PCR Negative [facility] Comment on above: Performed By: #### C AD #### [facility] [address] [place] [phone] Influenza B PCR Negative [facility] Comment on above: Performed By: #### C AD #### [facility] [address] [place], [place] [id number] [place] [phone] RSV PCR Negative [facility] Comment on above: Result Comment: This test has been authorized by FDA under an Emergency Use Authorization (EUA). Performed By: #### C AD #### [facility] [place] [phone] SARS-CoV-2 (COVID-19) RNA MEGAN+probe Ql (Unsp spec) UPPER RESPIRATORY TRACT SWAB Normal [facility] Comment on above: Performed By: #### C AD #### [facility] [address] [place] [address] [address] SARS-CoV-2 (COVID-19) RNA MEGAN+probe Ql (Unsp spec) Negative for COVID19 (SARS CoV2) by RT-PCR or equivalent method. Normal Negative for COVID19 (SARS CoV2) by RT-PCR or equivalent method. [facility] Comment on above: Result Comment: This test has been authorized by FDA under an Emergency Use Authorization (EUA). Performed By: #### C AD #### [facility] [address] [place] [address] [address] Magnesiumon 05-29-2021 Magnesium [Mass/Vol] 2.2 mg/dL Normal 1.7-2.3 [facility] Comment on above: Performed By: #### C MP, MG1, CBCDIF ####[facility] [phone] NT Pro BNPon 05-29-2021 PRO B Natr Peptide 303 pg/mL High <125 [facility] Comment on above: Performed By: #### N TBNP ####[facility] [phone] Troponin Ton 05-29-2021 Troponin T <0.010 Normal 0.000-0.029 [facility] Comment on above: Performed By: #### T NT ####[facility] [phone] Troponin T Unable to assay due to interference from hemolysis. Suggest reorder as clinically indicated. Normal 0.000-0.029 [facility] Comment on above: Result Comment: Call ed to ED Álvaro at [phone] on 05.29.21 by Sabino Performed By: #### T NT ####[facility] [phone] XR CHEST 1V FRONTAL PORTon 0 [...] No radiographic evidence of acute cardiopulmonary disease. Manager Nursing: PSCShilpa Transcribe Date/Time: May 29 2021 8:53P Dictated by : ROLY BANGURA MD This examination was interpreted and the report reviewed and electronically signed by: ROLY BANGURA MD on May 29 2021 8:54PM EST [id number] Normal [facility] COMPREHENSIVE PANELon 2020 Albumin [Mass/Vol] 3.9 g/dL Normal 3.4 - 5.0 [facility] Comment on above: Order Comment: PATIE NT FASTING Performed By: #### C MP #### [facility] [address] [place] [address] ALP [Catalytic activity/Vol] 71 U/L Normal 33 - 136 [facility] Comment on above: Order Comment: PATIE NT FASTING Performed By: #### C MP #### [facility] [address] [place] [address] ALT [Catalytic activity/Vol] 19 U/L Normal 10 - 52 [facility] Comment on above: Order Comment: PATIE NT FASTING Result Comment: Nasima ents treated with Sulfasalazine may generate falsely decreased results for ALT. Performed By: #### C MP #### [facility] [address] [place] [address] Anion gap [Moles/Vol] 13 mmol/L Normal 10 - 20 [facility] Comment on above: Order Comment: PATIE NT FASTING Performed By: #### C MP #### [facility] [address] [place] [address] AST [Catalytic activity/Vol] 20 U/L Normal 9 - 39 [facility] Comment on above: Order Comment: PATIE NT FASTING Performed By: #### C MP #### [facility] [address] [place] [address] Bilirubin [Mass/Vol] 0.6 mg/dL Normal 0.0 - 1.2 [facility] Comment on above: Order Comment: PATIE NT FASTING Performed By: #### C MP #### [facility] [address] [place] [address] Calcium [Mass/Vol] 9.0 mg/dL Normal 8.6 - 10.6 [facility] Comment on above: Order Comment: PATIE NT FASTING Performed By: #### C MP #### [facility] [address] [place] [address] Chloride [Moles/Vol] 103 mmol/L Normal 98 - 107 [facility] Comment on above: Order Comment: PATIE NT FASTING Performed By: #### C MP #### [facility] [address] [place] [address] Creatinine [Mass/Vol] 0.94 mg/dL Normal 0.50 - 1.30 [facility] Comment on above: Order Comment: PATIE NT FASTING Performed By: #### C MP #### [facility] [address] [place] [address] GFR- AM. >60 Normal >60 [facility] Comment on above: Order Comment: PATIE NT FASTING Result Comment: CALC ULATIONS OF ESTIMATED GFR ARE PERFORMED USING THE MDRD STUDY EQUATION FOR THE IDMS-TRACEABLE CREATININE METHODS. CLIN CHEM 2007;53:766-72 Performed By: #### C MP #### [facility] [address] [place] [address] GFR-NON AM. >60 Normal >60 [facility] Comment on above: Order Comment: PATIE NT FASTING Performed By: #### C MP #### [facility] [address] [place] [address] Glucose [Mass/Vol] 85 mg/dL Normal 74 - 99 [facility] Comment on above: Order Comment: PATIE NT FASTING Performed By: #### C MP #### [facility] [address] [place] [address] HCO3 (Bld) [Moles/Vol] 30 mmol/L Normal 21 - 32 [facility] Comment on above: Order Comment: PATIE NT FASTING Performed By: #### C MP #### [facility] [address] [place] [address] Potassium [Moles/Vol] 4.1 mmol/L Normal 3.5 - 5.3 [facility] Comment on above: Order Comment: PATIE NT FASTING Performed By: #### C MP #### [facility] [address] [place] [address] Protein [Mass/Vol] 6.6 g/dL Normal 6.4 - 8.2 [facility] Comment on above: Order Comment: PATIE NT FASTING Performed By: #### C MP #### [facility] [address] [place] [address] Sodium [Moles/Vol] 142 mmol/L Normal 136 - 145 [facility] Comment on above: Order Comment: PATIE NT FASTING Performed By: #### C MP #### [facility] [address] [place] [address] Urea nitrogen [Mass/Vol] 14 mg/dL Normal 6 - 23 [facility] Comment on above: Order Comment: PATIE NT FASTING Performed By: #### C MP #### [facility] [address] [place] [address] LIPID PANEL (CORONARY RISK 2 )on 09-03-2020 Cholesterol [Mass/Vol] 210 mg/dL High 0 - 199 [facility] Comment on above: Order Comment: PATIE NT [...] dosing. Performed By: #### L IPID #### [facility] [address] [place] [address] Cholesterol in HDL [Mass/Vol] 50.1 mg/dL Normal [facility] Comment on above: Order Comment: PATIE NT FASTING Result Comment: . AGE VERY LOW LOW NORMAL HIGH 0-19 Y < 35 < 40 40-45 ---- 20-24 Y ---- < 40 >45 ---- >24 Y ---- < 40 40-60 >60 . Performed By: #### L IPID #### [facility] [address] [place] [address] Cholesterol in LDL [Mass/Vol] 130 mg/dL High 0 - 99 [facility] Comment on above: Order Comment: PATIE NT FASTING Result Comment: . NEAR BORD AGE DESIRABLE OPTIMAL HIGH HIGH VERY HIGH 0-19 Y 0 - 109 --- 110-129 >/= 130 ---- 20-24 Y 0 - 119 --- 120-159 >/= 160 ---- >24 Y 0 - 99 100-129 130-159 160-189 >/=190 . Performed By: #### L IPID #### [facility] [address] [place] [address] Cholesterol in VLDL [Mass/Vol] 30 mg/dL Normal 0 - 40 [facility] Comment on above: Order Comment: PATIE NT FASTING Performed By: #### L IPID #### [facility] [address] [place] [address] Cholesterol.total/Chol esterol in HDL [Mass ratio] 4.2 {ratio} Normal [facility] Comment on above: Order Comment: PATIE NT FASTING Result Comment: REF VALUES DESIRABLE < 3.4 HIGH RISK > 5.0 Performed By: #### L IPID #### [facility] [address] [place] [address] Triglyceride [Mass/Vol] 152 mg/dL High 0 - 149 [facility] Comment on above: Order Comment: PATIE NT [...] dosing. Performed By: #### L IPID #### [facility] [address] [place] [address] PROSTATE SPEC.AG,SCREENon PROSTATE SPEC.AG,SCREEN 0.37 ng/mL Normal 0.00 - 4.00 [facility] Comment on above: Order Comment: PATIE NT FASTING Result Comment: The FDA requires that the method used for PSA assay be reported to the physician. Values obtained with different assay methods must not be used interchangeably. This test was performed at [facility] using the Siemens BitRock PSA method, which is a sandwich immunoassay using chemiluminescence for quantitation. The assay is approved for measurement of prostate-specific antigen (PSA) in serum and may be used in conjunction with a digital rectal examination in men 50 years and older as an aid in detection of prostate cancer. 3-Tghui-bierxcetz inhibitors (e.g. Proscar, Finasteride, Avodart, Dutasteride and Elizabeth) for the treatment of BPH have been shown to lower PSA levels by an average of 50% after 6 months of treatment. Performed By: #### P SASC #### [facility] [address] [place] [address] TSH WITH REFLEX TO FREE T4 I F ABNORMALon 09-03-2020 TSH Qn 0.97 m[IU]/L Normal 0.44 - 3.98 [facility] Comment on above: Order Comment: PATIE NT FASTING Result Comment: TSH testing is performed using different testing methodology at [facility] than at other [facility]. Direct result comparisons should only be made within the same method. Performed By: #### T HYDS #### [facility] [address] [place] [address] CBC AND DIFFERENTIALon 09-02 % AUTOMATED IMMATURE GRAN 0.3 % Normal 0.0 - 0.9 [facility] Comment on above: Order Comment: PATIE NT FASTING Result Comment: [place] Granulocyte Count (IG) includes promyelocytes, myelocytes and metamyelocytes but does not include bands. Percent differential counts (%) should be interpreted in the context of the absolute cell counts (cells/L). Performed By: #### C BCDF #### [facility] [address] [place] [address] Basophils (Bld) [#/Vol] 0.07 10*3/uL Normal 0.00 - 0.10 [facility] Comment on above: Order Comment: PATIE NT FASTING Result Comment: Auto mated WBC differential has been confirmed by manual smear. Performed By: #### C BCDF #### [facility] [address] [place] [address] Basophils/100 WBC (Bld) 0.9 % Normal 0.0 - 2.0 [facility] Comment on above: Order Comment: PATIE NT FASTING Performed By: #### C BCDF #### [facility] [address] [place] [address] Eosinophils (Bld) [#/Vol] 0.21 10*3/uL Normal 0.00 - 0.70 [facility] Comment on above: Order Comment: PATIE NT FASTING Performed By: #### C BCDF #### [facility] [address] [place] [address] Eosinophils/100 WBC (Bld) 2.8 % Normal 0.0 - 6.0 [facility] Comment on above: Order Comment: PATIE NT FASTING Performed By: #### C BCDF #### [facility] [address] [place] [address] Lymphocytes (Bld) [#/Vol] 2.28 10*3/uL Normal 1.20 - 4.80 [facility] Comment on above: Order Comment: PATIE NT FASTING Performed By: #### C BCDF #### [facility] [address] [place] [address] Lymphocytes/100 WBC (Bld) 30.9 % Normal 13.0 - 44.0 [facility] Comment on above: Order Comment: PATIE NT FASTING Performed By: #### C BCDF #### [facility] [address] [place] [address] Monocytes (Bld) [#/Vol] 0.50 10*3/uL Normal 0.10 - 1.00 [facility] Comment on above: Order Comment: PATIE NT FASTING Performed By: #### C BCDF #### [facility] [address] [place] [address] Monocytes/100 WBC (Bld) 6.8 % Normal 2.0 - 10.0 [facility] Comment on above: Order Comment: PATIE NT FASTING Performed By: #### C BCDF #### [facility] [address] [place] [address] Neutrophils (Bld) [#/Vol] 4.29 10*3/uL Normal 1.20 - 7.70 [facility] Comment on above: Order Comment: PATIE NT FASTING Performed By: #### C BCDF #### [facility] [address] [place] [address] Neutrophils/100 WBC (Bld) 58.3 % Normal 40.0 - 80.0 [facility] Comment on above: Order Comment: PATIE NT FASTING Performed By: #### C BCDF #### [facility] [address] [place] [address] Erythrocyte distribution width (RBC) [Ratio] 14.6 % High 11.5 - 14.5 [facility] Comment on above: Order Comment: PATIE NT FASTING Performed By: #### C BCDF #### [facility] [address] [place] [address] Hematocrit (Bld) [Volume fraction] 43.1 % Normal 41.0 - 52.0 [facility] Comment on above: Order Comment: PATIE NT FASTING Performed By: #### C BCDF #### [facility] [address] [place] [address] Hemoglobin (Bld) [Mass/Vol] 13.3 g/dL Low 13.5 - 17.5 [facility] Comment on above: Order Comment: PATIE NT FASTING Performed By: #### C BCDF #### [facility] [address] [place] [address] MCHC (RBC) [Mass/Vol] 30.9 g/dL Low 32.0 - 36.0 [facility] Comment on above: Order Comment: PATIE NT FASTING Performed By: #### C BCDF #### [facility] [address] [place] [address] MCV (RBC) [Entitic vol] 92 fL Normal 80 - 100 [facility] Comment on above: Order Comment: PATIE NT FASTING Performed By: #### C BCDF #### [facility] [address] [place] [address] NUCLEATED RBC 0.0 /100 WBC Normal 0.0-0.0 [facility] Comment on above: Order Comment: PATIE NT FASTING Performed By: #### C BCDF #### [facility] [address] [place] [address] Platelets (Bld) [#/Vol] 267 10*3/uL Normal 150 - 450 [facility] Comment on above: Order Comment: PATIE NT FASTING Performed By: #### C BCDF #### [facility] [address] [place] [address] RBC 4.69 x10E12/L Normal 4.50 - 5.90 [facility] Comment on above: Order Comment: PATIE NT FASTING Performed By: #### C BCDF #### [facility] [address] [place] [address] WBC (Bld) [#/Vol] 7.4 10*3/uL Normal 4.4 - 11.3 [facility] Comment on above: Order Comment: PATIE NT FASTING Performed By: #### C BCDF #### [facility] [address] [place] [address] RED CELL MORPHOLOGYon 2020 CHANELL CELLS Few Normal [facility] Comment on above: Order Comment: PATIE NT FASTING Performed By: #### M ORP2 #### [facility] [address] [place] [address] OVALOCYTES Few Normal [facility] Comment on above: Order Comment: PATIE NT FASTING Performed By: #### M ORP2 #### [facility] [address] [place] [address] POLYCHROMASIA Mild Normal [facility] Comment on above: Order Comment: PATIE NT FASTING Performed By: #### M ORP2 #### [facility] [address] [place] [address] RBC FRAGMENTS Few Normal [facility] Comment on above: Order Comment: PATIE NT FASTING Performed By: #### M ORP2 #### [facility] [address] [place] [address] RBC morphology finding Nom (Bld) See Below Normal [facility] Comment on above: Order Comment: PATIE NT FASTING Performed By: #### M ORP2 #### [facility] [address] [place] [address] No Panel Informationon 01-19 76 1 MP-Cardiolo [...] gy-M[facility]ano [address] [place] Work Phone: [email or web address] ?RetrieveTestByDateTime?P [email or web address]&Date=1 09-13-2019&Time=15%3a11%3a 03%3a00&TestType=ECG&Site =1&OutputType=PDF&Ext=PDF MP-Cardiolo gy-M[address]uj[place] [address] [place] Work Phone: Otheron 11-13-2019 [facility] Complete Blood Count + Diffe rentialon 11-06-2019 Basophils (Bld) [#/Vol] 0.06 {x10E9/L} See Below [facility] Work [...] width (RBC) [Ratio] 13.7 % See Below [facility] Work Phone: Comment on above: Reference Range: 11. 5 - 14.5 Hematocrit (Bld) [Volume fraction] 45.5 % See Below [facility] Work Phone: Comment on above: Reference Range: 41. 0 - 52.0 Hemoglobin (Bld) [Mass/Vol] 14.0 g/dL See Below [facility] Work Phone: Comment [...] 5.90 WBC (Bld) [#/Vol] 0.0 {/100_WBC} 0.0-0.0 [facility] Work Phone: WBC (Bld) [#/Vol] 7.2 {x10E9/L} 4.4 - 11.3 [facility] Work Phone: Complete Blood Count + Differential 0.1 % 0.0 - 0.9 [facility] Work Phone: Comment on above: Immature Granulocyte Count (IG) includes promyelocytes, myelocytes and metamyelocytes but does not include bands. Percent differential counts (%) should be interpreted in the context of the absolute cell counts (cells/L). Lipid Panelon 11-06-2019 Cholesterol [Mass/Vol] 181 mg/dL 0 - 199 [facility] Work Phone: Comment on above: . AGE [...] dosing. Cholesterol in HDL [Mass/Vol] 52.1 mg/dL [facility] Work Phone: Comment on above: . AGE VERY LOW LOW N ORMAL HIGH 0-19 Y < 35 < 40 40-45 ---- 20-24 Y ---- < 40 >45 ---- >24 Y ---- < 40 40-60 >60. Cholesterol in LDL [Mass/Vol] 97 mg/dL 0 - 99 [facility] Work Phone: Comment on above: . NEAR BORD AGE IZABELLA RABLE OPTIMAL HIGH HIGH VERY HIGH 0-19 Y 0 - 109 --- 110-129 >/= 130 ---- 20-24 Y 0 - 119 --- 120-159 >/= 160 ---- >24 Y 0 - 99 100-129 130-159 160-189 >/=190. Cholesterol.total/Chol esterol in HDL [Mass ratio] 3.5 {ratio} [facility] Work Phone: Comment on above: REF VALUESDESIRABLE < 3.4HIGH RISK > 5.0 Triglyceride [Mass/Vol] 158 mg/dL above high threshold 0 - 149 [facility] Work Phone: Comment on above: [...] Lipid Panel 32 mg/dL 0 - 40 [facility] Work Phone: Metabolic Panelon 11-06-2019 ALP [Catalytic activity/Vol] 70 U/L 33 - 136 [facility] Work Phone: Anion gap [Moles/Vol] 13 mmol/L 10 - 20 [facility] Work Phone: Bilirubin [Mass/Vol] 0.6 mg/dL 0.0 - 1.2 [facility] Work Phone: Calcium [Mass/Vol] 9.4 mg/dL 8.6 - 10.6 [facility] Work Phone: Chloride [Moles/Vol] 99 mmol/L 98 - 107 [facility] Work Phone: CO2 [Moles/Vol] 30 mmol/L 21 - 32 [facility] Work Phone: Creatinine [Mass/Vol] 0.87 mg/dL See Below [facility] Work Phone: Comment on above: Reference Range: 0.5 0 - 1.30 Glucose [Mass/Vol] 89 mg/dL 74 - 99 [facility] Work Phone: Potassium [Moles/Vol] 4.3 mmol/L 3.5 - 5.3 [facility] Work Phone: Protein [Mass/Vol] 7.3 g/dL 6.4 - 8.2 [facility] Work Phone: Sodium [Moles/Vol] 138 mmol/L 136 - 145 [facility] Work Phone: Urea nitrogen [Mass/Vol] 14 mg/dL 6 - 23 [facility] Work Phone: Otheron 11-06-2019 Albumin BCP dye [Mass/Vol] 4.4 g/dL 3.4 - 5.0 [facility] Work Phone: ALT With P-5'-P [Catalytic activity/Vol] 11 U/L 10 - 52 [facility] Work Phone: Comment on above: Patients treated wit h Sulfasalazine may generate falsely decreased results for ALT. AST With P-5'-P [Catalytic activity/Vol] 17 U/L 9 - 39 [facility] Work Phone: >60 >60 [facility] Work Phone: Comment on above: CALCULATIONS OF LUZMARIA MATED GFR ARE PERFORMED USING THE MDRD STUDY EQUATION FOR THE IDMS-TRACEABLE CREATININE METHODS. CLIN CHEM [id number] Culture, urine Bacteria identified Cx Nom (U) Mixed Gram Pos & Gram Neg Org [facility] Work Phone: Bacteria identified Cx Nom (U) Klebsiella pneumoniae sp pneum [facility] Work Phone: Vital Signs Date Time Vital Sign Value Performing Clinician Facility 09-13-2023 11:48-0400 Body height 175.3 cm Rebecca Buck MD Work Phone: [facility] 09-13-2023 11:48-0400 Body mass index (BMI) [Ratio] 25.84 kg/m2 Rebecca Buck MD Work Phone: [facility] 09-13-2023 11:48-0400 Body weight 79.38 kg Rebecca Buck MD Work Phone: [facility] 08-13-2023 09:56-0400 Body height 175.3 cm Rebecca Buck MD Work Phone: [facility] 08-13-2023 09:56-0400 Body mass index (BMI) [Ratio] 25.84 kg/m2 Rebecca Buck MD Work Phone: [facility] 08-13-2023 09:56-0400 Body weight 79.38 kg Rebecca Buck MD Work Phone: [facility] 03-02-2022 18:49-0400 Body temperature 98.01 [degF] Lanettepriscilla Munguia DO Work Phone: [facility] 03-02-2022 18:49-0400 Diastolic blood pressure 72 mm[Hg] Lanettepriscilla Munguia DO Work Phone: [facility] 03-02-2022 18:49-0400 Heart rate 94 /min Lanettepriscilla Munguia DO Work Phone: [facility] 03-02-2022 18:49-0400 Respiratory rate 18 /min Lanette Munguia DO Work Phone: [facility] 03-02-2022 18:49-0400 SaO2% (BldA) [Mass fraction] 98 % Lanettepriscilla Munguia DO Work Phone: [facility] 03-02-2022 18:49-0400 Systolic blood pressure 104 mm[Hg] Lanettepriscilla Munguia DO Work Phone: [facility] 03-02-2022 11:55-0400 Body height 175.3 cm Lanette Munguia DO Work Phone: [facility] 03-02-2022 11:55-0400 Body mass index (BMI) [Ratio] 25.84 kg/m2 Lanette Munguia DO Work Phone: [facility] 03-02-2022 11:55-0400 Body weight 79.38 kg Lanette Munguia DO Work Phone: [facility] 12-22-2021 02:08-0400 Diastolic blood pressure 67 mm[Hg] Sharon Olivia MD Work Phone: [facility] 12-22-2021 02:08-0400 Heart rate 77 /min Sharon Olivia MD Work Phone: [facility] 12-22-2021 02:08-0400 Respiratory rate 16 /min Sharon Olivia MD Work Phone: [facility] 12-22-2021 02:08-0400 SaO2% (BldA) [Mass fraction] 96 % Sharon Olivia MD Work Phone: [facility] 12-22-2021 02:08-0400 Systolic blood pressure 108 mm[Hg] Sharon Olivia MD Work Phone: [facility] 12-21-2021 23:52-0400 Body height 175.3 cm Sharon Olivia MD Work Phone: [facility] 12-21-2021 23:52-0400 Body mass index (BMI) [Ratio] 25.84 kg/m2 Sharon Olivia MD Work Phone: [facility] 12-21-2021 23:52-0400 Body temperature 97.9 [degF] Sharon Olivia MD Work Phone: [facility] 12-21-2021 23:52-0400 Body weight 79.38 kg Sharon Olivia MD Work Phone: [facility] 11-01-2021 08:41-0400 Diastolic blood pressure 77 mm[Hg] Dante Kim MD Work Phone: [facility] 11-01-2021 08:41-0400 Heart rate 75 /min Dante Kim MD Work Phone: [facility] 11-01-2021 08:41-0400 Respiratory rate 16 /min Dante Kim MD Work Phone: [facility] 11-01-2021 08:41-0400 SaO2% (BldA) [Mass fraction] 97 % Dante Kim MD Work Phone: [facility] 11-01-2021 08:41-0400 Systolic blood pressure 112 mm[Hg] Dante Kim MD Work Phone: [facility] 10-31-2021 19:13-0400 Body height 177.8 cm Dante Kim MD Work Phone: [facility] 10-31-2021 19:13-0400 Body mass index (BMI) [Ratio] 27.26 kg/m2 Dante Kim MD Work Phone: [facility] 10-31-2021 19:13-0400 Body temperature 98.49 [degF] Dante Kim MD Work Phone: [facility] 10-31-2021 19:13-0400 Body weight 86.18 kg Dante Kim MD Work Phone: [facility] 10-29-2021 07:38-0400 Body temperature 97.81 [degF] Lisa Miguel Angel DO Work Phone: [facility] 10-29-2021 07:38-0400 Diastolic blood pressure 79 mm[Hg] Lisa Miguel Angel DO Work Phone: [facility] 10-29-2021 07:38-0400 Heart rate 80 /min Lisa Miguel Angel DO Work Phone: [facility] 10-29-2021 07:38-0400 Respiratory rate 18 /min Lisa Miguel Angel DO Work Phone: [facility] 10-29-2021 07:38-0400 SaO2% (BldA) [Mass fraction] 96 % Lisa Miguel Angel DO Work Phone: [facility] 10-29-2021 07:38-0400 Systolic blood pressure 123 mm[Hg] Lisa Michelle DO Work Phone: [facility] 10-25-2021 13:55-0400 Body height 170.2 cm Lisa Michelle DO Work Phone: [facility] 10-21-2021 00:57-0400 Body mass index (BMI) [Ratio] 37.58 kg/m2 Lisa Michelle DO Work Phone: [facility] 10-21-2021 00:57-0400 Body weight 108.86 kg Lisa Michelle DO Work Phone: [facility] 07-13-2020 13:21-0500 BMI (Body Mass Index) 40.47 kg/m2 Monika Staley [facility] Work Phone: 07-13-2020 13:21-0500 Body Temperature 98 [degF] Monika Staley [facility] Work Phone: 07-13-2020 13:21-0500 Body weight 124.31 kg Shiela Stuart [facility] Work Phone: 07-13-2020 13:21-0500 BP Diastolic 78 mm[Hg] Monika Staley [facility] Work Phone: 07-13-2020 13:21-0500 BP Systolic 138 mm[Hg] Monika Staley [facility] Work Phone: 07-13-2020 13:21-0500 BSA (Body Surface Area) 2.36 m2 Monika Staley [facility] Work Phone: 04-13-2020 15:33-0500 BMI (Body Mass Index) 40.32 kg/m2 Wing Ritter [facility] Work Phone: 04-13-2020 15:33-0500 Body weight 123.83 kg Wing Ritter [facility] Work Phone: 04-13-2020 15:33-0500 BP [...] 04-13-2020 15:33-0500 Pulse Oximetry 98 % [facility] Work Phone: Comment on above: Source: 04-13-2020 15:33-0500 0 1 [facility] Work Phone: Comment on above: Pain Scale 01-20-2020 16:39-0400 Body height 175.26 cm Monika Staley MD [facility] [address] [place] Work Phone: 01-20-2020 16:39-0400 Body mass index (BMI) [Ratio] 39.28 kg/m2 Monika Staley MD RD-Txuesoxeae-Yhb [address] [place] Work Phone: 01-20-2020 16:39-0400 Body surface area Derived from formula 2.33 m2 Monika Staley MD NO-Mzteskijri-Eiw [address] [place] Work Phone: 01-20-2020 16:39-0400 Body weight 120.66 kg Monika Staley MD [facility] [address] [place] Work Phone: 01-20-2020 16:39-0400 Diastolic blood pressure 84 mm[Hg] Monika Staley MD TQ-Kmfkybjhqb-Bkm [address] [place] Work Phone: Comment on above: Location: [facility]; Position: Sitting 01-20-2020 16:39-0400 Heart rate 80 /min Monika Staley MD [facility] [address] [place] Work Phone: 01-20-2020 16:39-0400 SaO2% (BldA) [Mass fraction] 100 % Monika Staley MD, [facility] [address] [place] Work Phone: Comment on above: Source: 01-20-2020 16:39-0400 Systolic blood pressure 144 mm[Hg] Monika Staley MD IH-Hznbwxxbga-Gjm [address] [place] Work Phone: Comment on above: Location: [facility]; Position: Sitting 11-06-2019 15:29-0400 BMI (Body Mass Index) 38.31 kg/m2 Monika Staley [facility] Work Phone: 11-06-2019 15:29-0400 Body Temperature 97.6 [degF] Monika Staley [facility] Work Phone: 11-06-2019 15:29-0400 Body weight 117.66 kg Monika Staley [facility] Work Phone: 11-06-2019 15:29-0400 BP Diastolic 62 mm[Hg] Monika Staley [facility] Work Phone: 11-06-2019 15:29-0400 BP Systolic 140 mm[Hg] Monika Staley [facility] Work Phone: 11-06-2019 15:29-0400 BSA (Body Surface Area) 2.31 m2 Monika Staley [facility] Work Phone: 11-06-2019 15:29-0400 Height 175.26 cm Monika Staley [facility] Work Phone: Encounters Encounter Date Encounter Type Care Provider Facility Start: 01-12-2025 ambulatory Mahaveer Mukka flash OLS Facility:[facility] Start: 01-08-2025 ambulatory Mahaveer Mukka flash OLS Facility:[facility] Start: 01-06-2025 ambulatory Mahaveer Mukka flash OLS Facility:[facility] Start: 01-01-2025 ambulatory Mahaveer Mukka flash OLS Facility:[facility] Start: 12-29-2024 ambulatory Peter Katsaros OLS Faci lity:[facility] Start: 12-26-2024 ambulatory Mahaveer Mukka flash OLS Facility:[facility] Start: 12-25-2024 ambulatory Mahaveer Mukka flash OLS Facility:[facility] Start: 12-24-2024 ambulatory Peter Katsaros OLS Faci lity:[facility] Start: 12-22-2024 ambulatory Mahaveer Mukka flash OLS Facility:[facility] Start: 12-18-2024 ambulatory Mahaveer Mukka flash OLS Facility:[facility] Start: 12-15-2024 ambulatory Mahaveer Mukka flash OLS Facility:[facility] Start: 12-11-2024 ambulatory Peter Katsaros OLS Faci lity:[facility] Start: 12-08-2024 ambulatory Mahaveer Mukka flash OLS Facility:[facility] Start: 12-04-2024 ambulatory Mahaveer Mukka flash OLS Facility:[facility] Start: 12-02-2024 ambulatory Mahaveer Mukka flash OLS Facility:[facility] Start: 12-01-2024 ambulatory Peter Katsaros OLS Faci lity:[facility] Start: 11-28-2024 ambulatory Peter Katsaros OLS Faci lity:[facility] Start: 11-27-2024 ambulatory Mahaveer Mukka flash OLS Facility:[facility] Start: 11-24-2024 ambulatory Mahaveer Mukka flash OLS Facility:[facility] Start: 11-20-[facility]24 [facility] Start: 11-17-2024 [facility] Start: 11-13-2024 ambulatory [facility] flash OLS Facility:[facility] Start: 11-10-[facility] Start: 11-06-2024 [facility] Start: 11-03-2024 ambulatory Carlos NOVAK Faci lity:[facility] Start: 10-30-2024 [facility] Start: 10-30-2024 Registered Ref[facility] [place] [facility] Start: 10-27-2024 [facility] Start: 10-27-2024 Registered Referred Karon casillas MD -[facility] [place] [facility] Start: 10-23-2024 [facility] Start: 10-23-2024 Registered Referred [facility] Start: 10-20-2024 [facility] Start: 10-20-2024 Registered Referred Karno casillas MD -[facility] Start: 10-16-2024 [facility] Start: 10-16-2024 Registered Referred [facility] Start: 10-13-2024 ambulatory Carlos NOVAK Faci lity:[facility] Start: 10-13-2024 Registered Referred Carlos Cavazos - [facility] Start: 10-09-[facility] Start: 10-09-2024 Registered Referred [facility] [place] [facility] Start: 10-06-2024 ambulatory Carlos NOVAK Faci lity:[facility] Start: 10-06-2024 Registered Referred Carlos Maribelkameron - [facility] Start: 10-02-2024 ambulatory [facility] O[facility] Facility:[facility] Start: 10-02-2024 Registered Referred Karon casillas MD -[facility] Start: 09-30-2024 End: 09-30-[address] Monika Stalye MD Work Phone: [facility] Work Phone: Start: 09-30-2024 End: 09-30-2024 Departed Referred Karon Corrales MD -[facility] [employer] Start: 09-30-2024 Registered Referred Karon casillas MD -[facility] [employer] Start: 09-30-2024 End: 09-30-2024 ambulatory [facility] O[facility] Facility:[facility] Start: 09-25-2024 ambulatory [facility] OLS Facility:[facility] Start: 09-25-2024 Registered Referred Karon casillas MD -[facility] Start: 09-22-2024 End: 09-22-[address] Monika Staley MD Work Phone: -[facility] [place] [facility] Start: 09-22-2024 End: 09-22-2024 Departed Referred Karno Corrales MD -[facility] [place] [facility] Start: 09-22-2024 Registered Referred Karon casillas MD -[facility] [place] [facility] Start: 09-22-2024 End: 09-22-2024 [facility] Start: 09-18-2024 End: 09-18-[address] Monika Staley MD Work Phone: -[facility] [place] [facility] Start: 09-18-2024 End: 09-18-2024 Departed Referred Karon Corrales MD -[facility] Start: 09-18-2024 Registered Referred Karon casillas MD -[employer] Start: 09-18-2024 End: 09-18-2024 ambulatory Monika Staley Facility:[facility] Start: 09-15-2024 End: 09-15-[address] Monika Staley MD Work Phone: [facility] Work Phone: Start: 09-15-2024 End: 09-15-2024 Departed Referred Carlos Cavazos -[employer] Start: 09-15-2024 Registered Referred Carlos Cavazos - [employer] Start: 09-15-2024 End: 09-15-2024 ambulatory Carlos NOVAK Facility:[facility] Start: 09-11-2024 ambulatory Karon NOVAK Facility:[facility] Start: 09-11-2024 Registered Referred Karon casillas MD -[facility] Start: 09-08-2024 End: 09-08-[address] Monika Staley MD Work Phone: [facility] Work Phone: Start: 09-08-2024 End: 09-08-2024 Departed Referred Karon Corrales MD -[facility] [employer] Start: 09-08-2024 Registered Referred Karon casillas MD -[facility] Start: 09-08-2024 End: 09-08-2024 ambulatory Karon NOVAK Facility:[facility] Start: 09-04-2024 End: 09-04-2024 Departed Referred Carlos Cavazos -[facility] Start: 09-04-2024 Registered Referred Carlos Cavazos - [employer] Start: 09-04-2024 End: 09-04-2024 ambulatory Carlos NOVAK Facility:[facility] Start: 09-01-2024 End: 09-01-[address] Monika Staley MD Work Phone: [facility] Work Phone: Start: 09-01-2024 End: 09-01-2024 Departed Referred Carlos Cavazos -[facility] Start: 09-01-2024 Registered Referred Carlos Cavazos - [facility] Start: 09-01-2024 End: 09-01-2024 ambulatory Carlos Cavazos OLS Facility:[facility] Start: 08-28-2024 End: 08-28-[address] Monika Staley MD Work Phone: [facility] Work Phone: Start: 08-28-2024 End: 08-28-2024 Departed Referred Carlos Cavazos -[employer] Start: 08-28-2024 Registered Referred Carlos Cavazos - [employer] Start: 08-28-2024 End: 08-28-2024 ambulatory Carlos NOVAK Facility:[facility] Start: 08-25-2024 End: 08-25-[address] Monika Staley MD Work Phone: [facility] Work Phone: Start: 08-25-2024 End: 08-25-2024 Departed Referred Karon Corrales MD -[facility] [employer] Start: 08-25-2024 Registered Referred Karon casillas MD -[facility] Start: 08-25-2024 End: 08-25-2024 ambulatory Karon NOVAK Facility:[facility] Start: 08-21-2024 End: 08-21-[address] Monika Staley MD Work Phone: [facility] Work Phone: Start: 08-21-2024 End: 08-21-2024 Departed Referred [facility]aron [facility] [employer] Start: 08-21-2024 Registered Referred Mahaveer M ukkamalla MD -[facility] Start: 08-21-2024 End: 08-21-2024 ambulatory Karon NOVAK Facility:[facility] Start: 08-18-2024 End: 08-18-[address] Monika Staley MD Work Phone: [facility] Work Phone: Start: 08-18-2024 End: 08-18-2024 Departed Referred Karon Corrales MD -[facility] Start: 08-18-2024 Registered Referred Kraon casillas MD -[facility] Start: 08-18-2024 End: 08-18-2024 ambulatory Karon NOVAK Facility:[facility] Start: 08-14-2024 End: 08-14-[address] Monika Staley MD Work Phone: [facility] Work Phone: Start: 08-14-2024 End: 08-14-2024 Departed Referred Karon Corrales MD -[facility] Start: 08-14-2024 Registered Referred Karon casillas MD -[employer] Start: 08-14-2024 End: 08-14-2024 ambulatory Karon NOVAK Facility:[facility] Start: 08-11-2024 End: 08-11-2024 Departed Referred Karon Corrales MD -[facility] Start: 08-11-2024 Registered Referred Karon casillas MD -[facility] Start: 08-11-2024 End: 08-11-2024 ambulatory Karon NOVAK Facility:[facility] Start: 08-07-2024 End: 08-07-2024 Departed Referred Carlos Cavazos -[employer] Start: 08-07-2024 Registered Referred Carlos Reeder [employer] Start: 08-07-2024 End: 08-07-2024 ambulatory Carlos NOVAK Facility:[facility] Start: 08-04-2024 End: 08-04-[address] Monika Staley MD Work Phone: [facility] Work Phone: Start: 08-04-2024 End: 08-04-2024 Departed Referred Carlos Cavazos -[employer] Start: 08-04-2024 Registered Referred Carlos Cavazos - [employer] Start: 08-04-2024 End: 08-04-2024 ambulatory Carlos NOVAK Facility:[facility] Start: 07-31-2024 End: 07-31-[address] Monika Staley MD Work Phone: [facility] Work Phone: Start: 07-31-2024 End: 07-31-2024 Departed Referred Karon Corrales MD -[facility] [facility] Start: 07-31-2024 Registered Referred Karon casillas MD -[facility] [facility] Start: 07-31-2024 End: 07-31-2024 ambulatory Karon NOVAK Facility:[facility] Start: 07-28-2024 End: 07-28-[address] Monika Staley MD Work Phone: [facility] Work Phone: Start: 07-28-2024 End: 07-28-2024 Departed Referred Karon Corrales MD -[facility] [facility] Start: 07-28-2024 Registered Referred Karon casillas MD -[facility] [facility] [facility] Start: 07-28-2024 End: 07-28-2024 ambulatory Karon NOVAK Facility:[facility] Start: 07-25-2024 End: 07-25-[address] Monika Staley MD Work Phone: [facility] Work Phone: Start: 07-25-2024 End: 07-25-2024 Departed Referred Carlos Cavazos -[employer] Start: 07-25-2024 Registered Referred Carlos Cavazos - [employer] Start: 07-24-2024 End: 07-25-[address] Monika Staley MD Work Phone: [facility] Work Phone: Start: 07-24-2024 End: 07-24-2024 Departed Referred Karon Corrales MD -[facility] Start: 07-24-2024 Registered Referred Karon casillas MD -[employer] Start: 07-24-2024 End: 07-24-2024 ambulatory Karon NOVAK Facility:[facility] Start: 07-21-2024 End: 07-21-[address] Monika Staley MD Work Phone: [facility] Work Phone: Start: 07-21-2024 End: 07-21-2024 Departed Referred Karon Corrales MD -[facility] [facility] Start: 07-21-2024 Registered Referred Karon casillas MD -[facility] [facility] Start: 07-21-2024 End: 07-21-2024 ambulatory Karon NOVAK Facility:[facility] Start: 07-17-2024 End: 07-17-[address] Monika Staley MD Work Phone: [facility] Work Phone: Start: 07-17-2024 End: 07-17-2024 Departed Referred Karon Corrales MD -[facility] [place] [facility] Start: 07-17-2024 Registered Referred Karon casillas MD -[facility] [facility] Start: 07-17-2024 End: 07-17-2024 ambulatory Karon NOVAK Facility:[facility] Start: 07-14-2024 End: 07-14-[address] Monika Staley MD Work Phone: [facility] Work Phone: Start: 07-14-2024 End: 07-14-2024 Departed Referred Carlos Cavazos -[employer] Start: 07-14-2024 Registered Referred Carlos Kenny [employer] Start: 07-14-2024 End: 07-14-2024 ambulatory Carlos Cavazos OLS Facility:[facility] Start: 07-11-2024 End: 07-11-[address] Monika Staley MD Work Phone: [facility] Work Phone: Start: 07-11-2024 End: 07-11-2024 Departed Referred Carlos Abdelrahmanviri -[employer] Start: 07-11-2024 Registered Referred Carlos Kenny - [employer] Start: 07-11-2024 End: 07-11-2024 ambulatory Carlos Maribelkameron OLS Facility:[facility] Start: 07-07-2024 End: 07-07-[address] Monika Staley MD Work Phone: [facility] Work Phone: Start: 07-07-2024 End: 07-07-2024 Departed Referred Karon Corrales MD -[employer] Start: 07-07-2024 Registered Referred [facility] -[facility] [facility] [facility] Start: 07-07-2024 End: 07-07-2024 ambulatory Karon NOVAK Facility:[facility] Start: 07-03-2024 End: 07-03-[address] Monika Staley MD Work Phone: [facility] Work Phone: Start: 07-03-2024 End: 07-03-2024 Departed Referred Kvng Crisostomo MD -[facility] [employer] Start: 07-03-2024 Registered Referred Kvng Crisostomo MD -[facility] [employer] Start: 07-03-2024 End: 07-03-2024 ambulatory Kvng NOVAK Facility:[facility] Start: 06-30-2024 End: 06-30-[address] Monika Staley MD Work Phone: [facility] Work Phone: Start: 06-30-2024 End: 06-30-2024 Departed Referred Kvng Crisostomo MD -[facility] [employer] Start: 06-30-2024 Registered Referred Kvng Crisostomo MD -[facility] Start: 06-30-2024 End: 06-30-2024 ambulatory Kvng NOVAK Facility:[facility] Start: 06-26-2024 ambulatory Kvng NOVAK Fac ility:[facility] Start: 06-26-2024 Registered Referred Kvng Crisostomo MD -[facility] [employer] Start: 06-23-2024 End: 06-23-[address] Monika Staley MD Work Phone: [facility] Work Phone: Start: 06-23-2024 End: 06-23-2024 Departed Referred Carlos Cavazos -[facility] Start: 06-23-2024 Registered Referred Carlos Reeder [employer] Start: 06-23-2024 End: 06-23-2024 ambulatory Carlos NOVAK Facility:[facility] Start: 06-19-2024 End: 06-19-[address] Monika Staley MD Work Phone: [facility] Work Phone: Start: 06-19-2024 End: 06-19-2024 Departed Referred Kvng Crisostomo MD -[facility] Start: 06-19-2024 Registered Referred Kvng Crisostomo MD -[employer] Start: 06-19-2024 End: 06-19-2024 ambulatory Kvng NOVAK Facility:[facility] Start: 06-16-2024 End: 06-16-[address] Monika Staley MD Work Phone: [facility] Work Phone: Start: 06-16-2024 End: 06-16-2024 Departed Referred Kvng Crisostomo MD -[facility] Start: 06-16-2024 Registered Referred Kvng Crisostomo MD -[facility] Start: 06-16-2024 End: 06-16-2024 ambulatory Kvng NOVAK Facility:[facility] Start: 06-12-2024 End: 06-12-[address] Monika Staley MD Work Phone: [facility] Work Phone: Start: 06-12-2024 End: 06-12-2024 Departed Referred Kvng Crisostomo MD -[facility] [employer] [facility] Start: 06-12-2024 Registered Referred Kvng Crisostomo MD -[facility] Start: 06-12-2024 End: 06-12-2024 ambulatory Kvng NOVAK Facility:[facility] Start: 06-09-2024 End: 06-09-[address] Monika Staley MD Work Phone: [facility] Work Phone: Start: 06-09-2024 End: 06-09-2024 Departed Referred Carlos Cavazos -[employer] Start: 06-09-2024 Registered Referred Carlos Cavazos - [employer] Start: 06-09-2024 End: 06-09-2024 ambulatory Carlos NOVAK Facility:[facility] Start: 06-05-2024 End: 06-05-[address] Monika Staley MD Work Phone: [facility] Work Phone: Start: 06-05-2024 End: 06-05-2024 Departed Referred Kvng Crisostomo MD -[employer] Start: 06-05-2024 End: 06-05-2024 ambulatory Kvng NOVAK Facility:[facility] Start: 06-02-2024 End: 06-02-[address] Monika Staley MD Work Phone: [facility] Work Phone: Start: 06-02-2024 End: 06-02-2024 Departed Referred Kvng Crisostomo MD -[facility] Start: 06-02-2024 Registered Referred Kvng Crisostomo MD -[employer] Start: 06-02-2024 End: 06-02-2024 ambulatory Kvng NOVAK Facility:[facility] Start: 05-29-2024 End: 05-29-[address] Monika Staley MD Work Phone: [facility] Work Phone: Start: 05-29-2024 End: 05-29-2024 Departed Referred Kvng Crisostomo MD -[employer] Start: 05-29-2024 Registered Referred Kvng Crisostomo MD -[employer] Start: 05-29-2024 End: 05-29-2024 ambulatory Kvng NOVAK Facility:[facility] Start: 05-26-2024 End: 05-26-[address] Monika Staley MD Work Phone: [facility] Work Phone: Start: 05-26-2024 End: 05-26-2024 Departed Referred Carlos Cavazos -[employer] Start: 05-26-2024 Registered Referred Carlos Reeder [employer] Start: 05-26-2024 End: 05-26-2024 ambulatory Carlos NOVAK Facility:[facility] Start: 05-22-2024 ambulatory Kvng NOVAK Fac ility:[facility] Start: 05-22-2024 Registered Referred Kvng Crisostomo MD -[employer] Start: 05-20-2024 End: 05-20-2024 Departed Referred Kvng Crisostomo MD -[employer] Start: 05-19-2024 End: 05-20-2024 ambulatory Kvng NOVAK Facility:[facility] Start: 05-19-2024 Registered Referred Kvng Crisostomo MD -[employer] Start: 05-15-2024 End: 05-15-2024 Departed Referred Kvng Crisostomo MD -[employer] Start: 05-15-2024 End: 05-15-2024 ambulatory Kvng NOVAK Facility:[facility] Start: 05-12-2024 End: 05-12-2024 Departed Referred Carlos Cavazos -[employer] Start: 05-12-2024 End: 05-12-2024 ambulatory Carlos NOVAK Facility:[facility] Start: 05-09-2024 End: 05-09-2024 Departed Referred Kvng Crisostomo MD -[employer] Start: 05-09-2024 End: 05-09-2024 ambulatory Kvng NOVAK Facility:[facility] Start: 05-08-2024 End: 05-08-2024 Departed Referred Kvng Crisostomo MD -[employer] Start: 05-08-2024 End: 05-08-2024 ambulatory Kvng NOVAK Facility:[facility] Start: 05-05-2024 End: 05-05-2024 Departed Referred Kvng Crisostomo MD -[employer] Start: 05-05-2024 End: 05-05-2024 ambulatory Kvng NOVAK Facility:[facility] Start: 05-01-2024 End: 05-01-2024 Departed Referred Kvng Crisostomo MD -[employer] Start: 05-01-2024 End: 05-01-2024 ambulatory Kvng NOVAK Facility:[facility] Start: 04-28-2024 End: 04-28-2024 Departed Referred Carlos Cavazos -[employer] Start: 04-28-2024 End: 04-28-2024 ambulatory Carlos NOVAK Facility:[facility] Start: 04-24-2024 End: 04-24-2024 Departed Referred Kvng Crisostomo MD -[employer] Start: 04-24-2024 End: 04-24-2024 ambulatory Kvng NOVAK Facility:[facility] Start: 04-21-2024 End: 04-21-2024 Departed Referred Carlos Cavazos -[employer] Start: 04-21-2024 End: 04-21-2024 ambulatory Carlos NOVAK Facility:[facility] Start: 04-17-2024 ambulatory Kvng NOVAK Fac ility:[facility] Start: 04-17-2024 Registered Referred Kvng Crisostomo MD -[employer] Start: 04-14-2024 ambulatory Kvng NOVAK Fac ility:[facility] Start: 04-14-2024 Registered Referred Kvng Crisostomo MD -[employer] Start: 04-10-2024 End: 04-10-2024 Departed Referred Kvng Crisostomo MD -[employer] Start: 04-10-2024 End: 04-10-2024 ambulatory Kvng NOVAK Facility:[facility] Start: 04-07-2024 End: 04-07-2024 Departed Referred Carlos Cavazos -[employer] Start: 04-07-2024 End: 04-07-2024 ambulatory Shiela Luís Facility:[facility] Start: 04-04-2024 ambulatory AviskarolVijay NOVAK Fac ility:[facility] Start: 04-04-2024 Registered Referred [facility] [employer] Start: 03-31-2024 End: 03-31-2024 Departed Referred [facility] [employer] Start: 03-31-2024 End: 03-31-2024 ambulatory Shiela Luís Facility:[facility] Start: 03-27-2024 End: 03-27-2024 Departed Referred [facility] Start: 03-27-2024 End: 03-27-2024 ambulatory Monika Staley Facility:[facility] Start: 03-24-2024 End: 03-24-2024 Departed Referred Kvng Crisostomo MD -[employer] Start: 03-24-2024 End: 03-24-2024 ambulatory Kvng NOVAK Facility:[facility] Start: 03-20-2024 End: 03-20-2024 Departed Referred [facility] [employer] Start: 03-20-2024 End: 03-20-2024 ambulatory [facility] Facility:[facility] Start: 03-19-2024 End: 03-19-2024 Departed Referred Kvng Crisostomo MD -[employer] Start: 03-19-2024 End: 03-19-2024 ambulatory Kvng NOVAK Facility:[facility] Start: 03-18-2024 End: 03-18-2024 Departed Referred [facility] Start: 03-18-2024 End: 03-18-2024 ambulatory [facility] Facility:[facility] Start: 03-17-2024 End: 03-17-2024 Departed Referred [facility] Start: 03-17-2024 End: 03-17-2024 ambulatory [facility] Facility:[facility] Start: 03-14-2024 End: 03-14-2024 Departed Referred Carlos Cavazos -[employer] Start: 03-14-2024 End: 03-14-2024 ambulatory Carlos NOVAK Facility:[facility] Start: 03-13-2024 End: 03-13-2024 Departed Referred [facility] Start: 03-13-2024 End: 03-13-2024 ambulatory [facility] Facility:[facility] Start: 03-10-2024 End: 03-10-2024 ambulatory [facility] Facility:[facility] Start: 03-06-2024 End: 03-06-2024 ambulatory [facility] Facility:[facility] Start: 03-03-2024 End: 03-03-2024 ambulatory [facility] Facility:[facility] Start: 02-28-2024 End: 02-28-2024 ambulatory [facility] Facility:[facility] Start: 02-25-2024 End: 02-25-2024 ambulatory Carlos NOVAK Facility:[facility] Start: 02-21-2024 End: 02-21-2024 ambulatory [facility] Facility:[facility] Start: 02-18-2024 End: 02-18-2024 ambulatory [facility] Facility:[facility] Start: 02-14-2024 End: 02-14-2024 ambulatory [facility] Facility:[facility] Start: 02-12-2024 End: 02-12-2024 ambulatory Carlos NOVAK Facility:[facility] Start: 02-11-2024 End: 02-11-2024 ambulatory [facility] Facility:[facility] Start: 02-08-2024 End: 02-08-2024 ambulatory Carlos NOVAK Facility:[facility] Start: 02-07-2024 End: 02-07-2024 ambulatory Carlos NOVAK Facility:[facility] Start: 02-04-2024 End: 02-04-2024 ambulatory Carlos NOVAK Facility:[facility] Start: 02-01-2024 ambulatory Carlos NOVAK Faci lity:[facility] Start: 01-30-2024 End: 01-30-2024 ambulatory Carlos NOVAK Facility:[facility] Start: 01-29-2024 End: 01-29-2024 ambulatory [facility] Facility:[facility] Start: 01-21-2024 End: 01-21-2024 ambulatory Carlos NOVAK Facility:[facility] Start: 01-14-2024 End: 01-14-2024 ambulatory Carlos NOVAK Facility:[facility] Start: 09-13-2023 End: 09-13-2023 ambulatory [facility] Start: 09-13-2023 End: 09-13-2023 Office outpatient visit 25 minutes Rebecca Buck MD Work Phone: [facility] Comment on above: Left flank pain (Christina amgui Dx); BPH with urinary obstruction; History of kidney stones Start: 09-06-2023 End: 09-07-2023 ambulatory [facility] Start: 09-06-2023 End: 09-06-2023 Subsequent hospital visit by physician Rebecca Buck MD Work Phone: [facility] Imaging Comment on above: Left flank pain; Calculus of ureter Start: 08-31-2023 ambulatory Eloise Stern RN [facility] Clinical Communication Start: 08-31-2023 Patient encounter procedure Eloise Stern RN [facility] Clinical Communication Start: 08-21-2023 Telephone encounter Rebecca Buck MD Work Phone: [facility] Clinical Communication Comment on above: CT appt Boaz advice Start: 08-21-2023 Registered Referred [facility] [employer] Start: 08-13-2023 End: 08-13-2023 ambulatory [facility] Start: 08-13-2023 End: 08-13-2023 Office outpatient new 45 minutes Rebecca Buck MD Work Phone: [facility] Comment on above: Left flank pain (Christina magui Dx); Calculus of ureter; Disease of prostate; BPH with urinary obstruction Start: 08-03-2023 End: 08-03-2023 ambulatory [facility] Work Phone: Start: 08-03-2023 End: 08-03-2023 Departed Referred [facility] [employer] Start: 07-20-2023 End: 07-20-2023 ambulatory [facility] Work Phone: Start: 07-20-2023 End: 07-20-2023 Departed Referred [facility] [employer] [facility] Start: 07-20-2023 Registered Referred [facility] [employer] Start: 07-18-2023 End: 07-18-2023 ambulatory [facility] Work Phone: Start: 07-18-2023 End: 07-18-2023 [facility] Start: 07-18-2023 [facility] Start: 07-16-2023 End: 07-16-2023 ambulatory [facility] Work Phone: Start: 07-16-2023 End: 07-16-2023 [facility] [employer] [facility] Start: 07-16-2023 [facility] [employer] [facility] Start: 07-13-2023 End: 07-13-2023 ambulatory [facility] Work Phone: Start: 07-13-2023 End: 07-13-2023 [facility] [employer] [facility] Start: 07-13-2023 [facility] [employer] [facility] Start: 07-12-2023 End: 07-12-2023 ambulatory [facility] Work Phone: Start: 07-12-2023 End: 07-12-2023 [facility] Start: 07-12-2023 Registered Referred [facility] [employer] Start: 07-05-2023 End: 07-05-2023 ambulatory [facility] Work Phone: Start: 07-05-2023 End: 07-05-2023 [facility] [employer] [facility] Start: 07-05-2023 Registered Referred [facility] Start: 07-02-2023 Registered Referred [facility] [employer] Start: 06-28-2023 End: 06-28-2023 ambulatory [facility] Work Phone: Start: 06-28-2023 End: 06-28-2023 Departed Referred [facility] Start: 06-28-2023 Registered Referred [facility] [employer] Start: 06-25-2023 Telephone encounter Rebecca Buck MD Work Phone: [facility] Start: 06-25-2023 End: 06-25-2023 ambulatory [facility] Work Phone: Start: 06-25-2023 End: 06-25-2023 [facility] Start: 06-25-2023 Registered Referred [facility] [employer] Start: 06-21-2023 End: 06-21-2023 ambulatory [facility] Work Phone: Start: 06-21-2023 End: 06-21-2023 [facility] [employer] [facility] Start: 06-21-2023 [facility] Start: 06-13-2023 End: 06-13-2023 ambulatory [facility] Work Phone: Start: 06-13-2023 End: 06-13-2023 [facility] [employer] Start: 06-06-2023 End: 06-06-2023 ambulatory [facility] Work Phone: Start: 06-06-2023 End: 06-06-2023 Departed Referred [facility] Start: 06-06-2023 Registered Referred [facility] [employer] Start: 05-23-2023 End: 05-23-2023 ambulatory [facility] Work Phone: Start: 05-23-2023 End: 05-23-2023 [facility] [employer] [facility] Start: 05-09-2023 End: 05-09-2023 [facility] Start: 05-09-2023 Registered Referred [facility] Start: 04-23-2023 End: 04-23-2023 Departed Referred [facility] Start: 04-09-2023 End: 04-09-2023 ambulatory [facility] Work Phone: Start: 04-09-2023 End: 04-09-2023 [facility] [employer] [facility] Start: 04-09-2023 [facility] Start: 04-02-2023 End: 04-02-2023 ambulatory [facility] Work Phone: Start: 04-02-2023 End: 04-02-2023 [facility] Start: 04-02-2023 [facility] [employer] [facility] Start: 03-26-2023 End: 03-26-2023 ambulatory [facility] Work Phone: Start: 03-26-2023 End: 03-26-2023 [facility] [employer] [facility] Start: 03-26-2023 [facility] Start: 03-22-2023 End: 03-22-2023 ambulatory [facility] Work Phone: Start: 03-22-2023 End: 03-22-2023 [facility] [employer] [facility] Start: 03-22-2023 [facility] Start: 03-08-2023 End: 03-08-2023 ambulatory [facility] Work Phone: Start: 03-08-2023 End: 03-08-2023 [facility] Start: 02-22-2023 End: 02-22-2023 ambulatory [facility] Work Phone: Start: 02-22-2023 End: 02-22-2023 Departed Referred [facility] Start: 02-22-2023 Registered Referred [facility] Start: 02-15-2023 End: 02-15-2023 ambulatory [facility] Work Phone: Start: 02-15-2023 End: 02-15-2023 [facility] [employer] [facility] Start: 02-15-2023 Registered Referred [facility] Start: 02-08-2023 End: 02-08-2023 ambulatory [facility] Work Phone: Start: 02-08-2023 End: 02-08-2023 [facility] Start: 01-31-2023 End: 01-31-2023 ambulatory [facility] Work Phone: Start: 01-31-2023 End: 01-31-2023 [facility] [employer] [facility] Start: 01-31-2023 Registered Referred [facility] Start: 01-29-2023 End: 01-29-2023 Departed [facility] [employer] Start: 01-29-2023 Registered Referred [facility] [employer] Start: 01-26-2023 End: 01-26-2023 [facility] Start: 01-26-2023 [facility] [employer] Start: 01-24-2023 End: 01-24-2023 Departed [facility] Start: 01-24-2023 Registered Referred [facility] Start: 01-22-2023 End: 01-22-2023 ambulatory [facility] Work Phone: Start: 01-22-2023 End: 01-22-2023 [facility] Start: 01-22-2023 Registered Referred [facility] Start: 01-10-2023 End: 01-10-2023 ambulatory [facility] Work Phone: Start: 01-10-2023 End: 01-10-2023 [facility] Start: 01-10-2023 [facility] Start: 12-27-2022 End: 12-27-2022 ambulatory [facility] Work Phone: Start: 12-27-2022 End: 12-27-2022 [facility] [employer] [facility] Start: 12-27-2022 [facility] [employer] [facility] Start: 12-21-2022 End: 12-21-2022 ambulatory [facility] Work Phone: Start: 12-21-2022 End: 12-21-2022 [facility] Start: 12-21-2022 [facility] Start: 12-14-2022 End: 12-14-2022 ambulatory [facility] Work Phone: Start: 12-14-2022 End: 12-14-2022 [facility] Start: 12-14-2022 [facility] Start: 12-07-2022 End: 12-07-2022 ambulatory [facility] Work Phone: Start: 12-07-2022 End: 12-07-2022 [facility] Start: 12-07-2022 Registered Referred [facility] [employer] Start: 11-24-2022 End: 11-24-2022 ambulatory [facility] Work Phone: Start: 11-24-2022 End: 11-24-2022 Departed Referred [facility] [employer] Start: 11-24-2022 [facility] [employer] Start: 11-23-2022 End: 11-23-2022 ambulatory [facility] Work Phone: Start: 11-23-2022 End: 11-23-2022 Departed Referred [facility] Start: 11-23-2022 [facility] [employer] Start: 11-22-2022 End: 11-22-2022 ambulatory [facility] Work Phone: Start: 11-22-2022 End: 11-22-2022 Departed Referred [facility] Start: 11-22-2022 Registered Referred [facility] [employer] [facility] Start: 11-09-2022 End: 11-09-2022 ambulatory [facility] Work Phone: Start: 11-09-2022 End: 11-09-2022 Departed Referred [facility] [place] [facility] Start: 11-09-2022 Registered [facility] [employer] [facility] Start: 10-26-2022 End: 10-26-2022 Departed Referred [facility] Start: 10-26-2022 [facility]istered [facility] [employer] [facility] Start: 10-12-2022 End: 10-12-2022 ambulatory [facility] Work Phone: Start: 10-12-2022 End: 10-12-2022 Departed Referred [facility] [employer] Start: 10-12-2022 Registered [facility] [employer] [facility] Start: 10-05-2022 End: 10-05-2022 Departed Referred [facility] [employer] [facility] Start: 10-05-2022 [facility]istered [facility] Start: 09-28-2022 End: 09-28-2022 ambulatory [facility] Work Phone: Start: 09-28-2022 End: 09-28-2022 Departed Referred [facility] [employer] Start: 09-14-2022 End: 09-14-2022 Departed Referred [facility] [employer] Start: 08-31-2022 End: 08-31-2022 [facility] Start: 08-31-2022 Registered Referred [facility] [employer] Start: 08-23-2022 End: 08-23-2022 ambulatory [facility] Work Phone: Start: 08-23-2022 End: 08-23-2022 [facility] Start: 08-23-2022 Registered Referred [facility] [employer] Start: 08-17-2022 End: 08-17-2022 ambulatory [facility] Work Phone: Start: 08-17-2022 End: 08-17-2022 [facility] Start: 08-17-2022 [facility] Start: 08-14-2022 End: 08-14-2022 ambulatory [facility] Work Phone: Start: 08-14-2022 End: 08-14-2022 [facility] Start: 08-14-2022 [facility] Start: 07-31-2022 End: 07-31-2022 ambulatory [facility] Work Phone: Start: 07-31-2022 End: 07-31-2022 Departed Referred [facility] [employer] Start: 07-31-2022 Registered Referred [facility] Start: 07-24-2022 End: 07-24-2022 ambulatory [facility] Work Phone: Start: 07-24-2022 End: 07-24-2022 Departed Referred [facility] [employer] Start: 07-24-2022 Registered Referred [facility] [employer] Start: 07-20-2022 End: 07-20-2022 [facility] Start: 07-20-2022 Registered Referred [facility] [employer] Start: 07-17-2022 End: 07-17-2022 [facility] Start: 07-17-2022 [facility] Start: 07-11-2022 [facility] Start: 07-10-2022 End: 07-10-2022 ambulatory [facility] Work Phone: Start: 07-10-2022 End: 07-10-2022 [facility] [place] [facility] Start: 07-10-2022 [facility] [place] [facility] Start: 07-03-2022 End: 07-03-2022 ambulatory [facility] Work Phone: Start: 07-03-2022 End: 07-03-2022 [facility] Start: 07-03-2022 [facility] Start: 06-27-2022 End: 06-27-2022 ambulatory [facility] Work Phone: Start: 06-27-2022 End: 06-27-2022 [facility] Start: 06-27-2022 [facility] [place] [facility] Start: 06-13-2022 End: 06-13-2022 ambulatory [facility] Work Phone: Start: 06-13-2022 End: 06-13-2022 [facility] Start: 06-13-2022 [facility] [place] [facility] Start: 06-06-2022 End: 06-06-2022 ambulatory [facility] Work Phone: Start: 06-06-2022 End: 06-06-2022 [facility] Start: 06-06-2022 [facility] [place] [facility] Start: 05-30-2022 End: 05-30-2022 ambulatory [facility] Work Phone: Start: 05-30-2022 End: 05-30-2022 [facility] [place] [facility] Start: 05-30-2022 [facility] Start: 05-16-2022 End: 05-16-2022 ambulatory [facility] Work Phone: Start: 05-16-2022 End: 05-16-2022 [facility] [place] [facility] Start: 05-16-2022 [facility] Start: 05-02-2022 End: 05-02-2022 ambulatory [facility] Work Phone: Start: 05-02-2022 End: 05-02-2022 [facility] [place] [facility] Start: 05-02-2022 [facility] [place] [facility] Start: 04-27-2022 End: 04-27-2022 ambulatory [facility] Work Phone: Start: 04-27-2022 End: 04-27-2022 [facility] Start: 04-27-2022 [facility] [place] [facility] Start: 04-26-2022 End: 04-26-2022 ambulatory [facility] Work Phone: Start: 04-26-2022 End: 04-26-2022 [facility] Start: 04-11-2022 End: 04-11-2022 ambulatory [facility] Work Phone: Start: 04-11-2022 End: 04-11-2022 [facility] Start: 03-28-2022 End: 03-28-2022 [facility] Start: 03-28-2022 [facility] Start: 03-23-2022 End: 03-23-2022 [facility] Start: 03-23-2022 [facility] [place] [facility] Start: 03-16-2022 End: 03-16-2022 ambulatory [facility] Work Phone: Start: 03-16-2022 End: 03-16-2022 [facility] Start: 03-16-2022 [facility] [place] [facility] Start: 03-09-2022 End: 03-09-2022 ambulatory [facility] Work Phone: Start: 03-09-2022 End: 03-09-2022 [facility] Start: 03-09-2022 [facility] Start: 03-06-2022 End: 03-06-2022 ambulatory [facility] Work Phone: Start: 03-06-2022 End: 03-06-2022 [facility] Start: 03-06-2022 [facility] Start: 03-02-2022 End: 03-03-2022 Emergency department patient visit UNKNOWN PROVIDER [facility] Start: 03-02-2022 End: 03-02-2022 Emergency department patient visit Lanette Munguia Work Phone: [facility] Emergency Dept Comment on above: Fall, initial encoun ter (Primary Dx); Anticoagulated Start: 02-20-2022 End: 02-20-2022 Departed Referred [facility] [employer] Start: 02-20-2022 Registered Referred [facility] Start: 02-13-2022 End: 02-13-2022 ambulatory [facility] Work Phone: Start: 02-13-2022 End: 02-13-2022 Departed Referred [facility] [employer] Start: 02-13-2022 Registered Referred [facility] [employer] [facility] Start: 02-06-2022 End: 02-06-2022 ambulatory [facility] Work Phone: Start: 02-06-2022 End: 02-06-2022 Departed Referred [facility] [employer] [facility] Start: 02-06-2022 Registered Referred [facility] [employer] Start: 01-30-2022 End: 01-30-2022 Departed Referred [facility] [employer] Start: 01-30-2022 Registered Referred [facility] [employer] [facility] Start: 01-26-2022 End: 01-26-2022 ambulatory [facility] Work Phone: Start: 01-26-2022 End: 01-26-2022 [facility] [place] [facility] Start: 01-26-2022 Registered Referred [facility] [employer] [facility] Start: 01-19-2022 End: 01-19-2022 ambulatory [facility] Work Phone: Start: 01-19-2022 End: 01-19-2022 Departed Referred [facility] [employer] Start: 01-19-2022 Registered Referred [facility] [employer] Start: 01-17-2022 ambulatory [facility] Start: 01-10-2022 [facility]ulatory [facility] Start: 01-10-2022 End: 01-10-2022 ambulatory [facility] Work Phone: Start: 01-10-2022 End: 01-10-2022 [facility] [place] [facility] Start: 01-10-2022 [facility] Start: 01-06-2022 AUDIT Shiela Stua rt Work Phone: [facility] Work Phone: Start: 01-05-2022 End: 01-05-2022 [facility] Start: 01-05-2022 [facility]istered [facility] Start: 12-30-2021 End: 12-30-2021 [facility] Start: 12-30-2021 [facility] Start: 12-28-2021 End: 12-28-2021 ambulatory [facility] Work Phone: Start: 12-28-2021 End: 12-28-2021 [facility]ed [facility] Start: 12-28-2021 [facility] Start: 12-26-2021 End: 12-26-2021 ambulatory [facility] Work Phone: Start: 12-26-2021 End: 12-26-2021 [facility] Start: 12-26-2021 [facility] Start: 12-22-2021 End: 12-22-2021 ambulatory [facility] Work Phone: Start: 12-22-2021 End: 12-22-2021 [facility] Start: 12-22-2021 Registered Referred [facility] Moe Delo Start: 12-22-2021 End: 12-22-2021 [facility] Start: 12-21-2021 End: 12-22-2021 Emergency department patient visit Sharon Olivia MD Work Phone: [facility] Emergency Dept Comment on above: Heel ulceration, lef t, with unspecified severity (HCC) (Primary Dx) Start: 12-19-2021 End: 12-19-2021 ambulatory [facility] Work Phone: Start: 12-19-2021 End: 12-19-2021 Departed Referred [facility] [employer] Start: 12-19-2021 Registered Referred [facility] [employer] [facility] Start: 12-12-2021 End: 12-12-2021 ambulatory [facility] Work Phone: Start: 12-12-2021 End: 12-12-2021 Departed Referred [facility] [place] Moe Delo Start: 12-12-2021 Registered [facility] Start: 12-08-2021 End: 12-08-2021 ambulatory [facility] Work Phone: Start: 12-08-2021 End: 12-08-2021 Departed Referred [facility] Moe Delo Start: 12-08-2021 [facility]istered [facility] Start: 12-05-2021 End: 12-05-2021 ambulatory [facility] Work Phone: Start: 12-05-2021 End: 12-05-2021 [facility] Start: 12-05-2021 Registered Referred [facility] [place] Moe Delo Start: 12-01-2021 End: 12-01-2021 [facility]ed [facility] Start: 12-01-2021 [facility] Start: 11-28-2021 End: 11-28-2021 [facility] Start: 11-28-2021 [facility] Start: 11-25-2021 Rx Renewal Monika Elias rt Work Phone: [id number] Work Phone: Start: 11-23-2021 End: 11-23-2021 [facility] [place] [facility] Start: 11-23-2021 Registered [facility] Start: 11-22-2021 End: 11-22-2021 [facility]ed [facility] Start: 11-22-2021 Registered [facility] Start: 11-21-2021 End: 11-21-2021 [facility]ed [facility] Start: 11-15-2021 AUDIT Monika Elias rt Work Phone: [id number] Work Phone: Start: 11-14-2021 End: 11-14-2021 [facility] [place] [facility] Start: 11-14-2021 Registered [facility] Start: 11-08-2021 End: 11-08-2021 [facility] Start: 11-08-2021 Registered [facility] Start: 11-04-2021 End: 11-04-2021 [facility] Start: 11-04-2021 [facility]istered [facility] Start: 10-31-2021 End: 11-01-2021 Emergency department patient visit UNKNOWN PROVIDER [facility] Start: 10-31-2021 End: 11-01-2021 Emergency department patient visit Dante Kim MD Work Phone: [facility] Emergency Dept Comment on above: Other fatigue (Prima ry Dx) Start: 10-31-2021 End: 10-31-2021 Departed Referred [facility] [employer] [facility] Start: 10-21-2021 End: 10-29-2021 Evaluation and management of inpatient UNKNOWN PROVIDER [facility] Start: 10-21-2021 End: 10-29-2021 Evaluation and management of inpatient Lisa Michelle DO Work Phone: [facility] Comment on above: Leg swelling (Primar y Dx); Acute deep vein thrombosis (DVT) of proximal vein of lower extremity, unspecified laterality (HCC) Start: 10-20-2021 End: 10-20-2021 Departed Referred [facility] [employer] [facility] Start: 10-17-2021 Telephone encounter Nicole davis MD Work Phone: [facility] Comment on above: Missed Appointment Start: 09-19-2021 End: 09-19-2021 Departed Referred [facility] [employer] [facility] Start: 11-02-2020 AUDIT Monika Elias rt Work Phone: [facility] Work Phone: Start: 10-27-2020 AUDIT Monika Elias rt Work Phone: [facility] Work Phone: Start: 07-13-2020 Patient encounter procedure Monika Staley [facility] Work Phone: Start: 04-13-2020 Patient encounter procedure Wing Ritter [facility] Work Phone: Start: 04-07-2020 Patient encounter procedure Wing Ritter [facility] Work Phone: Start: 03-18-2020 [facility] Start: [...] Start: 10-26-2021 Electroencephalogram w/rec awake&asleep Sarina Pineda BINGO ATTENDANT - [employer]ER Work Phone: Start: 10-26-2021 Ct head/brain w/o co ntrast material Sarina Isabel Edwin BINGO ATTENDANT - [employer]ER Work Phone: Start: 10-26-2021 Prothrombin time Andres Sheridan MD Work Phone: Start: 10-25-2021 Speech and language therapy regime Sarina Isabel Edwin BINGO ATTENDANT - [employer] HANDLER Work Phone: Start: 10-25-2021 Prothrombin time Andres Sheridan MD Work Phone: Start: 10-24-2021 Basic metabolic pane l calcium total May Cash MD Start: 10-23-2021 NEURON SPECIFIC ENOLASE (NSE) Wing Srivastava MD Work Phone: Start: 10-23-2021 Mri abdomen w/o cont rast material Wing Srivastava MD Work Phone: Start: 10-23-2021 B-2 GLYCOPROTEIN (IGA) Wing Sirvastava MD Work Phone: Start: 10-23-2021 B2 GLYCOPROTEIN [...] count reticulo cyte automated Ellen B Niesha BINGO ATTENDANT - IRON HANDLER Work Phone: Start: 10-21-2021 C-reactive protein Loua nn Shilpa Scherer BINGO ATTENDANT - IRON HANDLER Work Phone: Start: 10-21-2021 Non-invas physiologi c std extremity art 2 level Shruthi Malik BINGO ATTENDANT - [employer]ON HANDLER Work Phone: Start: 10-21-2021 Radex calcaneus mini mum 2 views Shruthi Malik BINGO ATTENDANT - IRON HANDLER Work Phone: Start: 10-21-2021 Dup-scan xtr veins [...] Comment: Speci men Type: BLOOD SPECIMENOrdering Facility: [facility] Address: [address] [place] [address] Performed By: #### T SCR ####[facility] BLOOD BANKCLIA [id number] [address] Start: 08-04-2021 Antibody screen Comment on above: Order Comment: Speci men Type: BLOOD SPECIMENOrdering Facility: [facility] Address: [address] [place] [address] Performed By: #### T SCR ####[facility] BLOOD BANKCLIA [id number] [address] Start: 08-01-2021 Antibody screen Comment on above: Order Comment: Speci men Type: BLOOD SPECIMENOrdering Facility: [facility] Address: [address] [place] [address] Performed By: #### T SCR ####[facility] BLOOD BANKCLIA [id number] [address] Start: 06-07-2021 Antibody screen Comment on above: Order Comment: Speci men Type: BLOOD SPECIMEN Performed By: #### T SCR ####[facility] BLOOD BANKCLIA [id number] [place] [address] [facility] Start: 09-02-2020 Lipid 1996 panel - S bradly or Plasma Rebecca Buck MD Work Phone: Start: 04-07-2020 Echocardiography Wing Ritter Start: 11-13-2019 Radiologic examinati on tibia & fibula 2 views 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 (Florist) Debbie Work Phone: Hernia repair Monika Elias rt History of Cholecystotomy An yvette Eliasrt History of Creation Of Subdural-Peritoneal CSF Shunt Monika Staley History 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 Placement Monika Staley Urine culture Plan of Treatment Date Care Activity Detail Author Start: 09-22-2026 DTaP/Tdap/Td vaccine (2 - Td or Tdap) DTaP/Tdap/Td vaccine (2 - Td or Tdap) [facility] Start: 09-22-2026 DTaP/Tdap/Td vaccine (2 - Td) DTaP/Tdap/Td vaccine (2 - Td) [facility] Work Phone: Start: 09-22-2026 DTaP/Tdap/Td Vaccine s (2 - Td or Tdap) DTaP/Tdap/Td Vaccines (2 - Td or Tdap) [facility] Start: 09-02-2025 Lipid panel Lipid Panel [facility] Start: 08-22-2024 DIABETES SCREEN DIABETES SCREEN [facility] Start: 12-04-2023 Lipid panel Lipids [facility] Start: 12-04-2023 Lipid screen Lipid screen [facility] Work Phone: Start: 09-13-2023 End: 09-13-2023 Patient encounter procedure 09/13/2023 11:30 AM EDT Office Visit [facility] [address] [place] [id number] Rebecca Buck MD [address] [place] [address] [facility] Start: 08-31-2023 End: 08-31-2023 Patient encounter procedure 08/31/2023 9:30 AM EDT Appointment [facility] [address] [place] [id number] Rebecca Buck MD [address] [place] [address] [facility] [address] [facility] Start: 08-13-2023 End: 08-12-2024 Basic metabolic 1998 panel - Serum or Plasma Basic metabolic panel Lab Routine Calculus of ureter Expected: 08/13/2023 (Approximate), Expires: 08/12/2024 [facility] Comment on above: Expected: 08/13/2023 (Approximate), Expires: 08/12/2024 Start: 08-13-2023 End: 08-12-2024 CT Abdomen WO contrast CT abdomen pelvis wo IV contrast Imaging Routine Left flank pain Calculus of ureter Expected: 08/13/2023, Expires: 08/12/2024 [facility] Comment on above: Expected: 08/13/2023 , Expires: 08/12/2024 Start: 08-13-2023 End: 02-12-2024 PSA, Monitoring ([facility]) PSA, Monitoring ([facility]) Lab Routine Disease of prostate Expected: 08/13/2023 (Approximate), Expires: 02/12/2024 [facility] [employer] Work Phone: Comment on above: Expected: 08/13/2023 (Approximate), Expires: 02/12/2024 Start: 08-13-2023 End: 08-13-2023 Patient encounter procedure 08/13/2023 10:00 AM EDT Office Visit [facility] [address] [place] [address] Rebecca Buck MD [address] [facility] [address] [place] [address] [facility] Start: 07-17-2023 Bacteria identified in Urine by Culture [facility] Start: 07-17-2023 [facility] Start: 07-16-2023 Measurement of substance [facility] Start: 05-07-2023 Medicare Advantage A nnual Wellness Visit Medicare Advantage Annual Wellness Visit [facility] Start: 03-02-2023 Creatinine measurement Creatinine Le carmela [facility] Start: 03-02-2023 Potassium measurement Potassium Leve l [facility] Start: 08-22-2022 Diabetes mellitus screening Diabetes Screening [facility] Start: 01-05-2022 Influenza vaccination [facility] Start: 12-23-2021 EPV, Provider: Wing Ritter, Status: Pen, Time: 9:30 AM EPV, Provider: Wing Ritter, Status: Pen, Time: 9:30 AM [facility] Work Phone: Start: 12-05-2021 Influenza vaccination Flu vaccine (# 1) [facility] Start: 12-05-2021 Blood chemistry [facility] Work Phone: Start: 12-05-2021 [facility] Work Phone: Start: 12-05-2021 [facility] Work Phone: Start: 12-01-2021 [facility] Work Phone: Start: 08-05-2021 COVID-19 VACCINE (4 - Booster for Moderna series) COVID-19 VACCINE (4 - Booster for Moderna series) [facility] Start: 08-05-2021 COVID-19 Vaccine (4 - Booster for Pfizer series) COVID-19 Vaccine (4 - Booster for Pfizer series) [facility] Start: 06-01-2021 COVID-19 Vaccine (4 - Booster for Pfizer series) COVID-19 Vaccine (4 - Booster for Pfizer series) [facility] Start: 05-07-2021 ADVANCE DIRECTIVE DISCUSSION ADVANCE DIRECTIVE DISCUSSION [facility] [facility] Start: 08-11-2020 Screening for malign ant neoplasm of colon [facility] Start: 07-30-2020 Screening for malign ant neoplasm of colon [facility] Start: 01-20-2020 Echocardiography Echocardiogram MP-C ardiology-Med russ [address] [place] Work Phone: Start: 01-06-2020 Influenza vaccination INFLUENZA (#1) [facility] Start: 12-04-2019 Annual Wellness Visi t (AWV) Annual Wellness Visit (AWV) [facility] Start: 12-04-2019 Creatinine monitoring Creatinine mon itoring [facility] Work Phone: Start: 12-04-2019 Hepatitis C screen Hepatitis C rivera n [facility] Work Phone: Comment on above: Postponed from 05/06 (Patient Refused) Start: 12-04-2019 Potassium monitoring Potassium monit oring [facility] Work Phone: Start: 12-04-2019 Prostate specific an tigen measurement Prostate Specific Antigen (PSA) Screening or Monitoring [facility] Start: 12-04-2019 Shingles Vaccine (1 of 2) Day gles Vaccine (1 of 2) [facility] Work Phone: Comment on above: Postponed from 05/06 (Patient Refused) Start: 06-07-2019 Colon Cancer Screen FIT/FOBT [facility] Work Phone: Start: 08-14-2017 LIPID SCREEN LIPID SCREEN [facility] Start: 2017 ADVANCE DIRECTIVE DISCUSSION ADVANCE DIRECTIVE DISCUSSION [facility] Start: 2017 PNEUMOCOCCAL: 65+ (1 - PCV) PNEUMOCOCCAL: 65+ (1 - PCV) [facility] Start: 2017 PNEUMOVAX AGE 65 AND OVER WITH 5YR LOOKBACK (#1) PNEUMOVAX AGE 65 AND OVER WITH 5YR LOOKBACK (#1) [facility] Start: 04-14-2016 DIABETES SCREEN DIABETES SCREEN [facility] Start: 2012 RSV Immunization age d 60 or older (1 - 1-dose 60+ series) RSV Immunization aged 60 or older (1 - 1-dose 60+ series) [facility] Start: 2007 PROSTATE CANCER SCRE ENING DISCUSSION PROSTATE CANCER SCREENING DISCUSSION [facility] Start: 2002 Shingles vaccine (1 of 2) Day gles vaccine (1 of 2) [facility] Start: 2002 SHINGRIX VACCINE (1 of 2) DAY GRIX VACCINE (1 of 2) [facility] Start: 2002 Tuberculosis screening COLOREC MONIQUE CANCER SCREENING,SEE MODIFIER [facility] Start: 2002 Zoster Vaccines (1 of 2) Zoste r Vaccines (1 of 2) [facility] Start: 1997 COLOGUARD (FIT-DNA) COLOGUARD (FIT-D NA) [facility] Start: 1997 Colonoscopy COLONOSCOPY [facility] Start: 1997 COLORECTAL CANCER SCREENING COLORECTAL CANCER SCREENING [facility] Start: [address] COLONOGRAPHY [facility] Start: 1997 FECAL OCCULT BLOOD FECAL OCCULT BLOO D [facility] Start: 1997 Screening for malign ant neoplasm of colon [facility] Start: 1997 SIGMOIDOSCOPY SIGMOIDOSCOPY [facility] Start: 1987 Diabetes screen Diabetes screen [facility] Start: 1971 Urine microalbumin profile DTAP,TDAP,TD (1 - Tdap) [facility] Start: 1970 ANNUAL PCP TEAM WORKFORCE STAFFING ADVISOR KEESHA DISEASE VISIT ANNUAL PCP TEAM CHRONIC DISEASE VISIT [facility] Start: 1970 BP CONTROLLED (<130/80) BP CONTROLLE D (<130/80) [facility] Start: 1970 Diabetes mellitus screening Diabetes Screening [facility] Start: 1970 HEPATITIS C SCREENING HEPATITIS C SC REEMARRY [facility] Start: 1970 Hepatitis C screening [facility] Start: 1964 Adult depression screening assessment DEPRESSION SCREENING [facility] Start: 1964 Depression Screen Depression Screen [facility] Start: 1962 Diabetic foot examination Diabetes: Foot Exam [facility] Start: 1962 Glaucoma screening Diabetes: R etinopathy Screening [facility] Start: 1962 Preventive dental service Diabetes: Dental Exam [facility] Start: 1952 Echocardiography Echocardiogram [facility] Start: 1952 Hemoglobin A1c measurement Diabetes: Hemoglobin A1C [facility] Start: 1952 Lipid panel Lipid Panel [facility] Start: 1952 Screening for malign ant neoplasm of colon [facility] Bacteria identified in Urine by Culture Urine Culture [facility] Work Phone: End: 03-02-2022 CBC W Auto Differential panel - Blood CBC with Auto Differential Lab Routine One Time for 1 Occurrences starting 03/02/2022 until 03/02/2022 [facility] Work Phone: Comment on above: One Time for 1 Occur rences starting 03/02/2022 until 03/02/2022 End: 03-02-2022 Comprehensive metabolic 2000 panel - Serum or Plasma Comprehensive Metabolic Panel Lab STAT One Time for 1 Occurrences starting 03/02/2022 until 03/02/2022 [facility] Work Phone: Comment on above: One Time for 1 Occur rences starting 03/02/2022 until 03/02/2022 End: 09-06-2023 CT Abdomen WO contrast [facility] Work Phone: Comment on above: Once for 1 Occurrenc es starting 09/06/2023 until 09/06/2023 End: 12-22-2021 Culture, Blood 2 Culture, Blood 2 Microbiology STAT One Time for 1 Occurrences starting 12/22/2021 until 12/22/2021 [facility] Work Phone: Comment on above: One Time for 1 Occur rences starting 12/22/2021 until 12/22/2021 End: 12-22-2021 Microscopic examination of blood, culture Culture, Blood Microbiology STAT One Time for 1 Occurrences starting 12/22/2021 until 12/22/2021 [facility] Work Phone: Comment on above: One Time for 1 Occur rences starting 12/22/2021 until 12/22/2021 Microscopic examinat ion of blood, culture Culture, Blood Microbiology STAT 12/22/2021 12:22 AM EDT [facility] Work Phone: Oxygen therapy [[facility] Data Set] Initiate Oxygen Therapy Protocol Respiratory Care Routine As Needed until discontinued starting 10/21/2021 [facility] Comment on above: As Needed until disc ontinued starting 10/21/2021 Protime-INR Protime-INR Lab Routine Daily until discontinued starting 10/23/2021, 7 completed [facility] Work Phone: Comment on above: Daily until disconti nued starting 10/23/2021, 7 completed End: 03-02-2022 Protime-INR Protime-INR Lab Routine One Time for 1 Occurrences starting 03/02/2022 until 03/02/2022 [facility] Work Phone: Comment on above: One Time for 1 Occur rences starting 03/02/2022 until 03/02/2022 Spirometry panel Incentive stef metry Respiratory Care Routine Daily until discontinued starting 10/21/2021 [facility] Work Phone: Comment on above: Daily until disconti nued starting 10/21/2021 End: 10-21-2021 Wound ostomy eval Wound ostomy eval Wound Ostomy Routine One Time for 1 Occurrences starting 10/21/2021 until 10/21/2021 [facility] Work Phone: Comment on above: One Time for 1 Occur rences starting 10/21/2021 until 10/21/2021 [facility] NEGATED: Highlighted row has been ruled out! Planned Goals not documented [facility] Work Phone: Immunizations Immunization Date Immunization [...] injectabl e, quadrivalent, contains preservative Sarika Salas [facility] 02-08-2015 influenza virus vacc ine, unspecified formulation Sarika Salas [facility] Work Phone: 02-04-2013 pneumococcal Conjuga te, unspecified formulation Sarika Salas [facility] Work Phone: Payers Date Payer Category Payer Unknown [id number] 01-14-2024 Self-pay 01-05-2022 Medicaid 01-05-2022 Medicare 01-05-2022 Medicare [id number] 10-05-2021 Medicaid [id number] 06-07-2021 Medicare UHC MEDICARE UHC DUAL COMPLETE HMO SNP [id number] 06/07/2021-Present [phone] [address] [place] [address] Medicare [id number] [id number] 06-07-2021 Medicare UHC MEDICARE UNITEDHEALTHCARE DUAL COMPLETE [id number] 06/07/2021-Present [phone] [address] [place] [address] [id number]. 2.7.3.871764.315 11-05-2019 Medicare UHC AARP MEDICAR E [facility] AARP MEDICARE HMO [id number] 11/05/2019-Present HMO [id number]. 2.7.3.725986.315 07-06-2015 Medicare UHC MEDICARE UHC MEDICARE COMPLETE xxxxxxxxx 2015-Present xxxxxxxxx [id number]. 2.7.3.698916.315 1950 Unknown [id number] 2.16.840.1.154454.3.579. 2.8 1952 Unknown [id number] 2.16.840.1.256437.3.579. 2.668 1952 Unknown [id number] 2.16.840.1.716383.3.579. 2.668 1952 Unknown [id number] 2.16.840.1.467550.3.579. 2.668 1952 Unknown [id number] 2.16.840.1.151158.3.579. 2.668 1952 Unknown [id number] 2.16.840.1.466220.3.579. 2.668 1952 Unknown [id number] 2.16.840.1.388478.3.579. 2.668 Private Health Insurance Unknown Unknown [id number] 2.16.840.1.428712.3.579. 2.462 Unknown [id number] 2.16840.1.338502.3.579. 2.462 Unknown [id number] 2.16840.1.793604.3.579. 2.462 Unknown [id number] 2.840.1.691862.3.579. 2.462 Unknown [id number] 2.840.1.780963.3.579. 2.462 Unknown [id number] 2.840.1.057158.3.579. 2.462 Unknown [id number] 2.840.1.209200.3.579. 2.462 Unknown [id number] 2.840.1.933735.3.579. 2.462 Unknown [id number] 2.16840.1.710373.3.579. 2.462 Unknown [id number] 2.16840.1.749231.3.579. 2.462 Unknown [id number] 2.16840.1.988143.3.579. 2.462 Unknown [id number] 2.16840.1.889362.3.579. 2.462 Unknown [id number] 2.16840.1.259167.3.579. 2.462 Unknown [id number] 2.16.840.1.582222.3.579. 2.462 Unknown [id number] 2.16.840.1.857011.3.579. 2.462 Unknown [id number] 2.16840.1.007513.3.579. 2.462 Unknown [id number] 2.16.840.1.439600.3.579. 2.462 Unknown [id number] 2.16.840.1.567738.3.579. 2.462 Unknown [id number] 2.16.840.1.595422.3.579. 2.462 Unknown [id number] 2.16840.1.424120.3.579. 2.462 Unknown [id number] 2.16.840.1.607198.3.579. 2.462 Unknown [id number] 2.840.1.098300.3.579. 2.462 Unknown [id number] 2.840.1.755765.3.579. 2.462 Unknown [id number] 2.840.1.364821.3.579. 2.462 Unknown [id number] 2.840.1.833285.3.579. 2.462 Unknown [id number] 2.840.1.044367.3.579. 2.462 Unknown [id number] 2.840.1.109961.3.579. 2.462 Unknown [id number] 2.840.1.429572.3.579. 2.462 Unknown [id number] 2.840.1.739241.3.579. 2.462 Unknown [id number] 2.840.1.920076.3.579. 2.462 Unknown [id number] 2.840.1.359209.3.579. 2.462 Unknown [id number] 2.16840.1.279590.3.579. 2.462 Unknown [id number] 2.840.1.328302.3.579. 2.462 Unknown [id number] 2.840.1.476531.3.579. 2.462 Unknown [id number] 2.16.840.1.732031.3.579. 2.462 Unknown [id number] 2.16.840.1.339884.3.579. 2.462 Unknown [id number] 2.16.840.1.150933.3.579. 2.462 Unknown [id number] 2.16.840.1.356936.3.579. 2.462 Unknown [id number] 2.16.840.1.753349.3.579. 2.462 Unknown [id number] 2..840.1.810010.3.579. 2.462 Unknown [id number] 2.840.1.019839.3.579. 2.462 Unknown [id number] 2.840.1.802708.3.579. 2.462 Unknown [id number] 2.840.1.859107.3.579. 2.462 Unknown [id number] 2.840.1.039960.3.579. 2.462 Unknown [id number] 2.840.1.052502.3.579. 2.462 Unknown [id number] 2.840.1.532965.3.579. 2.462 Unknown [id number] 2.840.1.676861.3.579. 2.462 Unknown [id number] 2.840.1.828444.3.579. 2.462 Unknown [id number] 2..840.1.029306.3.579. 2.462 Unknown [id number] 2..840.1.037875.3.579. 2.462 Unknown [id number] 2.16.840.1.367666.3.579. 2.462 Unknown [id number] 2.16.840.1.323029.3.579. 2.462 Unknown [id number] 2.840.1.519096.3.579. 2.462 Unknown [id number] 2.16.840.1.245380.3.579. 2.462 Unknown [id number] 2.16.840.1.228009.3.579. 2.462 Unknown [id number] 2.16.840.1.609407.3.579. 2.462 Unknown [id number] 2.16.840.1.595273.3.579. 2.462 Unknown [id number] 2.16.840.1.271462.3.579. 2.462 Unknown [id number] 2.16.840.1.483729.3.579. 2.462 Unknown [id number] 2.16.840.1.542988.3.579. 2.462 Unknown [id number] 2.16.840.1.822328.3.579. 2.462 Unknown [id number] 2.16.840.1.160250.3.579. 2.462 Unknown [id number] 2.16.840.1.247920.3.579. 2.462 Unknown [id number] 2.16.840.1.944540.3.579. 2.462 Unknown [id number] 2.16.840.1.123775.3.579. 2.462 Unknown [id number] 2.16.840.1.447091.3.579. 2.462 Unknown [id number] 2.16.840.1.948602.3.579. 2.462 Unknown [id number] 2.16.840.1.836514.3.579. 2.462 Unknown 01628872 2.16.840.1.862706.3.579. 2.462 Unknown 97490988 2.16.840.1.908870.3.579. 2.462 Unknown 47871916 2.16.840.1.263119.3.579. 2.462 Unknown 83408534 2.16.840.1.243251.3.579. 2.462 Unknown 06480626 2.16.840.1.340364.3.579. 2.462 Unknown 08594989 2.16.840.1.961984.3.579. 2.462 Unknown 66166271 2.16.840.1.565832.3.579. 2.462 Unknown 80384750 2.16.840.1.952384.3.579. 2.462 Unknown 83073945 2.16.840.1.471181.3.579. 2.462 Unknown [id number] 2.840.1.166373.3.579. 2.462 Unknown 00654417 2.840.1.046467.3.579. 2.462 Unknown 70447152 2.840.1.326171.3.579. 2.462 Unknown 90961734 2.840.1.501349.3.579. 2.462 Unknown 97752620 2.840.1.107180.3.579. 2.462 Unknown 57841097 2.840.1.753426.3.579. 2.462 Unknown 98540665 2.16.840.1.189090.3.579. 2.462 Unknown 73663673 2.840.1.444964.3.579. 2.462 Unknown 27260932 2.840.1.853711.3.579. 2.462 Unknown 66339278 2.16.840.1.062213.3.579. 2.462 Unknown 83805924 2.16.840.1.931644.3.579. 2.462 Unknown 06782609 2.16.840.1.657686.3.579. 2.462 Unknown 81219218 2.16840.1.452223.3.579. 2.462 Unknown 51058866 2.16.840.1.167778.3.579. 2.462 Unknown 40586970 2.16.840.1.080904.3.579. 2.462 Unknown 48631353 2.16.840.1.645694.3.579. 2.462 Unknown 96283010 2.16.840.1.047386.3.579. 2.462 Unknown 58304863 2.16.840.1.863280.3.579. 2.462 Unknown 61344012 2.840.1.468809.3.579. 2.462 Unknown 78291202 2.16840.1.204647.3.579. 2.462 Unknown 21494653 2.840.1.241537.3.579. 2.462 Unknown 79032491 2.840.1.480754.3.579. 2.462 Unknown 89572746 2.840.1.474015.3.579. 2.462 Unknown 99944832 2.840.1.280619.3.579. 2.462 Unknown 97222720 2.840.1.453197.3.579. 2.462 Unknown 42070782 2.16840.1.362827.3.579. 2.462 Unknown 52933146 2.16840.1.866819.3.579. 2.462 Unknown 79036483 2.16840.1.015595.3.579. 2.462 Unknown 05870074 2.16840.1.715436.3.579. 2.462 Unknown 24095852 2.16.840.1.775059.3.579. 2.462 Unknown [id number] 2.16.840.1.169845.3.579. 2.462 Unknown 15862861 2.16840.1.830677.3.579. 2.462 Unknown 91352573 2.16.840.1.790227.3.579. 2.462 Unknown [id number] 2.16.840.1.348637.3.579. 2.462 Unknown [id number] 2.16.840.1.382611.3.579. 2.462 Unknown [id number] 2.16.840.1.443038.3.579. 2.462 Unknown [id number] 2.16.840.1.885614.3.579. 2.462 Unknown [id number] 2.16.840.1.286571.3.579. 2.462 Unknown [id number] 2.16.840.1.623937.3.579. 2.462 Social History Date Type Detail Facility Start: 05-23-2018 End: 05-19-2019 Tobacco smoking status ALIS Former smoker [facility] Work Phone: History of tobacco use Cigar Smoker [facility] Work Phone: Start: 05-19-2019 End: 08-13-2023 Cigarettes smoked current (pack per day) - Reported [facility] Work Phone: Start: 05-19-2019 End: 08-13-2023 Alcohol intake Current non-drinker of alcohol (finding) [facility] Work Phone: Start: 12-03-2018 History SDOH Physica l Activity DPW 7 [facility] Work Phone: Start: 12-03-2018 History SDOH Physica l Activity MPS 9 [facility] Work Phone: Start: 12-03-2018 End: 10-31-2021 History SDOH Stress 1 [facility] Work Phone: Start: 12-03-2018 History SDOH Financial 5 [facility] Work Phone: Start: 12-03-2018 History SDOH Transpo rt Med 2 [facility] Work Phone: Start: 1950 Sex Assigned At Not on file [facility] Work Phone: Start: 08-13-2012 End: 11-13-2019 Tobacco smoking status NHIS Never smoker [facility] Start: 05-23-2018 End: 11-13-2019 Tobacco use and exposure Never used [facility] Start: 11-13-2019 History SDOH Alcohol Std Drinks 98 [facility] Start: 10-11-2021 End: 02-15-2022 Exposure to SARS-CoV-2 (event) Not sure [facility] Start: 1950 Sex Assigned At Male [facility] History of tobacco use Current smoker [facility] Work Phone: History of tobacco use Cigarette Smoker [facility] Work Phone: Start: 10-31-2021 End: 08-13-2023 Tobacco use panel [facility] [employer] Tobacco smoking stat us ALIS Unknown if ever smoked [facility] Work Phone: Start: 07-11-2024 End: 08-21-2024 Sex Male (finding) [facility] NEGATED: Highlighted row - - MARÍA [facility] Work Phone: Medical Equipment Procedure Code Equipment Code Equipment Origin al Text Equipment Identifier Dates Kit Bactiseal Woodard maria guadalupe Silicone Barium Catheter Shunt Sterile - [id number] Start: 06-08-2021 Catheter Bactise al 14cm External Drainage Csf Sterile Latex Free - [id number] Start: 08-05-2021 Valve Certas Shannon nt Inline - [id number] Start: 06-08-2021 Valve Certas Shannon nt Inline - [id number] Start: 08-05-2021 Valve Certas Shannon nt Inline - [id number] Start: 08-09-2021 Goals Date Patient Goal Desired Activity /State Comment on above: Self- Management Vanessa n: Obesity/Weight Loss Patient Stated Goal: To lose weight Barriers to success: lack of motivation Plan for overcoming my barriers: Take it one day at a time, decrease sweets. Encouraged and recommended by provider. Confidence: 10 Self-Management Plan: Will strive to achieve goal [...] not documented Disease [facility] Phys[facility] Work Phone: Mental Status Date Assessment Result Facility NEGATED: Highlighted row Cognitive function [Interpretation] Cognitive status health issues are not documented Disease [facility] Work Phone: Clinical Notes 05-31-2021 [...] Hydrocephalus, adult (CMS/HCC) (HCC) Kidney stone Neuropathy TRACK VEHICLE REPAIRER (ventriculoperitoneal) shunt status Past Surgical History: Procedure [...] 09/13/23 12:05 PM documented in this encounter [facility] 08-31-2023 Note S: Shanthi from [facility] spoke with CAC nurse regarding voiding [...] Protocols used: Information Only Call - No [facility] Telephone encounter Note S: Shanthi from [facility] spoke with CAC nurse regarding [...] Protocols used: Information Only Call - No Nmdrpj-PMRPO-WH [facility] 08-31-2023 Miscellaneous Notes S: Shanthi from [facility] spoke with CAC nurse regarding voiding trial procedure. B: Onset of symptoms/concern today. A: [facility] is calling to make sure that [...] Protocols used: Information Only Call - No Sawyuy-GQUVM-WO documented in this encounter [facility] 08-29-2023 Telephone encounter Note Lm on greg to advise them to call the number for the sheet manager to get clarification, and to call back with further questions [facility] 08-29-2023 Miscellaneous Notes Lm on greg to advise them to call the number for the sheet manager to get clarification, and to call back with further questions Yes, they will need to call the number given to them. Please advise Name of caller: Shanthi Contact phone number: [phone] Relationship to Patient: patient Provider: MD Quinn Practice: [facility] Chief Complaint/Reason for Call: Shanthi called in to see if Pt would need to come by cot for his CT appt due to Pt being Ob[place]. CAC did reach out to office and was advised to reach out to Central Scheduling. TEA did reach out to and was advised to let Shanthi know that she would need to reach out to call Maury Cedeño [place] [employer] [facility] at [facility] [phone] to get clarifications. CAC did reach back out to [facility] and advised and provider Maury's #. Please advise Best time of day caller can be reached: Any Patient advised that office/PCP has 24-48 business hours to return their call: N/A documented in this encounter [facility] 08-27-2023 Telephone encounter Note Yes, they will need to call the number given to them. [facility] 08-27-2023 Telephone encounter Note Please advise [facility] 08-21-2023 Telephone encounter Note Name of caller: Shanthi Contact phone number: [phone] Relationship to Patient: patient Provider: MD Quinn Practice: [facility] Chief Complaint/Reason for Call: Shanthi called [...] to reach out to call Maury Cedeño [place] [employer] at [facility] [phone] to get clarifications. CAC did reach back out to [facility] and advised and provider Maury's #. Please advise Best time of day caller can be reached: Any Patient advised that office/PCP has 24-48 business hours to return their call: N/A [facility] 08-13-2023 History of Present illness Narrative [...] Hydrocephalus, adult (CMS/HCC) (HCC) Kidney stone Neuropathy TRACK VEHICLE REPAIRER (ventriculoperitoneal) shunt status Past Surgical History: Past [...] 08/13/23 10:45 AM documented in this encounter [facility] 06-25-2023 [facility]23 [place] has to be made further out, pt being transported by cot. Changed appt to 08/13/23 per [facility] only avail time for transport, first avail with DR Buck at 10:00 AM. [facility] 06-25-2023 [facility] 07[facility]10[facility]23 [place] has to be made further out, pt being transported by cot. Changed appt to 08/13/23 per [facility] only avail time for transport, first avail with DR Buck at 10:00 AM. documented in this encounter [facility] 12-22-2021 Hospital Discharge instructions SANIA Lou - 12/22/2021 2:32 AM EDT Please take medication as prescribed Please follow up with your Physicians as instructed in this discharge paperwork Thank you for choosing [facility] I appreciate your patience Please return [...] abnormality and previous indwelling tubing history of TRACK VEHICLE REPAIRER shunt ? #?Bilateral lower extremity wounds-wound care [...] neurologist. Patient will be transferred to the longterm and his Coumadin was continued, dosing instructions were given. Wound care was given for his lower extremity wounds. Consults: neurology, vascular surgery, gastroenterology Discharge Instructions: Diet: No diet orders on file Activity: as tolerated Disposition: Patient discharged in stable condition to longterm . Greater than 30 minutes spent discharging [...] Your Medications These medications were sent to [facility] [address] [place] [address] [facility] - P [phone] - F [phone] [place] [address] ? levETIRAcetam 750 MG tablet ? warfarin 6 MG tablet Recommended Follow-up: No follow-up provider specified. Complexity of Follow up: [] Moderate Complexity: follow up within 7-14 calendar days (33515) [x] Severe Complexity: follow up within 7 calendar days (73166) Follow up Testing, Pending results or Referrals [...] Increased fatigue or (more content not included)... [facility] 10-29-2021 Hospital Discharge instructions Fabi Subramanian RN [...] Information Primary Emergency Contact: Triny Damon [address]: [address] [place] [address] Relation: Brother/Sister Secondary Emergency Contact: Melissa Sifuentes Mobile Relation: Child Preferred language: Citizen Of [place] Past Surgical History: Past Surgical History: Procedure Laterality Date BRAIN SURGERY CHOLECYSTECTOMY COLONOSCOPY HERNIA REPAIR Immunization History: Immunization History Administered Date(s) Administered Influenza Virus Vaccine 02/08/2015 Influenza, High Dose (Fluzone 65 yrs and older) 01/25/2018, 03/04/2019 Influenza, Quadv, IM, (6 mo and older Fluzone, Flulaval, Fluarix and 3 yrs and older Afluria) 02/24/2016, 02/14/2017 Pneumococcal Conjugate 13-valent (Uleynac12) 09/22/2016 Pneumococcal Conjugate Vaccine 02/04/2013 Pneumococcal Polysaccharide ([id number]) 12/03/2018 Tdap (Boostrix, Adacel) 09/22/2016 Active Problems: Patient Active Problem List Diagnosis Code Flank pain, acute R10.9 Night muscle spasms M62.838 Chronic fatigue R53.82 Hydrocephalus ([facility]) G91.9 Neuropathy G62.9 Erectile dysfunction N52.9 Fluid retention in tissues R60.9 Hyperlipidemia E78.5 Morbidly obese ([facility]) E66.01 Leg wound, left S81.802A DVT, lower extremity, recurrent, unspecified laterality ([facility]) I82.409 Moderate malnutrition ([facility]) E44.0 History of seizures Z87.898 Isolation/Infection: [...] Dependent Dressing Dependent Toileting Dependent Feeding Dependent Summer Associate Dependent Med Delivery whole in [facility] Wound Care Documentation and Therapy: Wound [...] Q4H prn SOB Oxygen Therapy: {Therapy; copd oxygen:29508} Ventilator: { CC Vent List:[id number]} Rehab Therapies: {THERAPEUTIC INTERVENTION:[id number]} Weight Bearing Status/Restrictions: Weight Bearing - Patient was bedbound in hospital Other Medical Equipment (for information only, NOT a DME order): wheelchair, hospital bed, and Boaz Other Treatments: Patient's personal belongings (please select all that are sent with patient): {[facility] DME Belongings:[id number]} RN SIGNATURE: CASE MANAGEMENT/SOCIAL WORK SECTION Inpatient Status Date: Readmission Risk Assessment Score: Readmission Risk Risk of Unplanned Readmission: 11 Discharging to Facility/ Agency Name: Address: Phone: Fax: Dialysis Facility (if applicable) Name: Address: Dialysis Schedule: Phone: Fax: Wire Turning Machine Operator/Hose Handler signature: {Esignature:[id number]} PHYSICIAN SECTION Prognosis: Fair Condition at Discharge: Stable Rehab Potential (if transferring to Rehab): Fair Recommended Labs or Other Treatments After Discharge: Coumadin based on INR target range 2-3, Coumadin 6 mg on 10/30 and 10/31, recheck INR 11/01 and notify physician, ideally should be on 6 mg alt with 7 mg daily, PT/OT, follow-up with neurologist in 1 month, continue [facility] Physician Certification: I certify the above information and transfer of Andrew Sifuentes is necessary for the continuing treatment of the diagnosis listed and that he requires Care Home Facility for greater than 30 days. Update Admission H&P: No change in H&P PHYSICIAN SIGNATURE: documented in this encounter [facility] Work Phone: 10-29-2021 History of Present illness Narrative [facility] Anticoagulation Management Service ([facility]) Inpatient Warfarin Consult HPI: Andrew Sifuentes is a 71 y.o. 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 Pt [...] PharmD IRVIN Consult Service is available daily [phone]. Please search for covering pharmacist name via [facility] or Groups --> Pharmacy --> Anti-Coagulation Consult Pharmacist (on 3rd page). If no response via [facility], please page [phone]. Patient seen and chart reviewed. Afebrile. Adequate oxygenation on room air. Baseline mentation. Exam stable X 5 systems. Hgb 11.0 WBC 10.0 K Platelets 344 K Creatinine 0.71 GFR > 90 cc/min. NSE 20.8 with hemolysis. PT 30.8 INR 3.1 Conversion to Warfarin has been completed. APS w/u pending. Discussed with patient's senior staff accountant. Will continue to monitor. Total visit time > 35 minutes. Neurology Attending Progress Note SUBJECTIVE: No issues overnight. Care discussed with nursing staff/patient's medical team MRI brain reported nothing acute. Assessment and Plan: 71 yr M with PMH obstructive hydrocephalus s/p TRACK VEHICLE REPAIRER shunt in 1987, needing multiple revisions and [...] normal limits and both old and new TRACK VEHICLE REPAIRER shunt tubing noted. At present patient is awake, follows commands, was able to tell his name, and that he was in hospital but not oriented to time. Per documentation patient had NCSE in May 2021, was on Vimpat, but it was discontinued as there was no evidence of recurrent seizures in july 2021 by Neurology at [facility], per daughter patient was on Dilantin for 31 yrs. Per daughter patient had seizures in the past and also felt he had staring episodes 10/26/2021 morning. Per daughter patient has been essentially bed bound in [place] since May 2021 but prior to that was independent Impressions: H/O hydrocephalus H/O seizure, H/O stroke Acute DVT H/O PE Plan: -MRI brain w/o contrast nothing acute -CT head done during this admission reported no hydrocephalus, ventricles within normal limits and both old and new TRACK VEHICLE REPAIRER shunt tubing noted -EEG mild to moderate slow, no seizures reported -Labs reviewed -Hydrocephalus management per Neurosurgery. At present patient does not have hydrocephalus on CT head done this admission. No Neurosurgery services available as inpatient in [facility]. Patient can follow up with Neurosurgery as outpatient and if ends up needing inpatient neurosurgery requirement then may need to be transferred to [facility]. -No clear clinical signs of ventriculitis. Defer evaluation to primary medical team/ID as deemed necessary. -Discussed with daughter in detail on . She was concerned that patient has had h/o seizures, and he has been taken off seizure medication, per note documentation patient had NCSE in May 2021 when he was admitted to [facility]. Per daughter she would [...] is no in house Neurology coverage at [facility] over the weekend, primary hospitalist team to contact rayon tester Neurology at [facility] for any weekend neurological issues related to the patient and if need to discuss any neurological test results/findings. Other deal in house Neurology coverage will be available from Sunday at [facility] and please call rayon tester Neurology back on Sunday if need further assistance. This note has been generated using Wazoku dictation software. It may contain incorrect words, punctuation's and spellings that were not noted in the review of the note prior to signing. This note has been generated using Wazoku dictation software. It may contain incorrect words, [...] eGFR >90.0 >60 mL/min EGFR IF NonAfrican Ukrainian >90.0 >60 mL/min Calcium 9.1 8.4 - [...] 26 AST 24 BILITOT 0.4 LABALBU 3.7 @BRIEFLAB([facility]) ABGs: )No results for input(s): PH, PO2, [...] Radiology ACCESSION EXAM DATE/TIME PROCEDURE ORDERING PROVIDER [id number] 10/21/2021 15:30 EDT CR Calcaneus 2+ Views [id number] -SHRUTHI MALIK Left CPT code 55608 Reason For Exam (CR Calcaneus 2+ Views [...] Tomography ACCESSION EXAM DATE/TIME PROCEDURE ORDERING PROVIDER [id number] 10/26/2021 11:[address] Head or Brain w/o JUNIE PINEDA, SARINA Contrast CPT code 20502 Reason For Exam (CT Head or Brain w/o Contrast) hydrocephalus. thank you Report CLINICAL INFORMATION: Hydrocephalus. Shunt. 3 mm axial cuts through the head are obtained without IV contrast. The examination is compared to a previous study dated 06/29/2014. FINDINGS: Old TRACK VEHICLE REPAIRER shunt tubing is noted bilaterally. The new [...] are clear. IMPRESSION: 1. Old and new TRACK VEHICLE REPAIRER shunt tubing. 2. No hydrocephalus. 3. Atrophy and evidence of small-vessel ischemic disease. 4. No CT evidence of an acute intracranial process. Report Dictated on --- Final --- Dictating Physician: MD SOLANO JEFFREY Signed Date and Time: 10/26/2021 11:42 am Signed by: MD SOLANO JEFFREY Transcribed Date and Time: 10/26/2021 11:43 MRI ABDOMEN WO CONTRAST Result Date: 10/23/2021 [id number] Imaging ACCESSION EXAM DATE/TIME PROCEDURE ORDERING PROVIDER [id number] 10/23/2021 11:08 EDT MRI Abdomen w/o Contrast WING SRIVASTAVA CPT code 81802 Reason For Exam (MRI Abdomen w/o Contrast) [...] Medicine ACCESSION EXAM DATE/TIME PROCEDURE ORDERING PROVIDER [id number] 10/21/2021 07:55 EDT NM Pulmonary Perfusion [id number] FORDSHAILESHMAY w/ Vent Aerosol CPT code 92365 A9567 Reason For Exam (NM Pulmonary Perfusion [...] Brachial Indices Extremity Bilateral Result Date: 10/22/2021 [facility] --- Ankle Brachial Index Report Patient Maria, : 1950 Study 10/21/2021 Name: Andrew Gonzalez (71yrs) Date: Age: 71 Account: [id number] Gender: M Loc: 444W BP: Ordering Physician: Shruthi Malik Car Mover: Rody Cross RDMS, RVT Interpreting Physician: Carina Call --- Location: [facility] --- Indications: Foot wounds. Originally ordered as a full PVR. Ordering MICROSOFT APPLICATION DEVELOPER had to modify the order to ABIs [...] supine position. Images were obtained using a [employer] vascular ultrasound machine. --- Arterial pressure indices: [...] EXTREMITY BILATERAL VENOUS DUPLEX Result Date: 10/21/2021 [facility] --- Lower Extremity Venous Duplex Report Patient DO MariaB: 1950 Study 10/21/2021 Name: Andrew Gonzalez (71yrs) Date: Age: 71 Account: [id number] Gender: M Loc: 444 BP: Ordering Physician: May Cash Car Mover: Rody Cross RDMS, RVT Interpreting Physician: Carina Call --- Location: [facility] --- Indications: Bilateral lower leg edema. --- [...] supine position. Images were obtained using a [employer] vascular ultrasound machine. --- Venous flow and [...] Radiology ACCESSION EXAM DATE/TIME PROCEDURE ORDERING PROVIDER [id number] 10/21/2021 08:16 EDT CR Chest 1 View Frontal [id number] MAY BOGGS CPT code 49342 Reason For Exam (CR Chest 1 View [...] Tomography ACCESSION EXAM DATE/TIME PROCEDURE ORDERING PROVIDER [id number] 10/22/2021 13:[address] Abdomen/Pelvis (No SRIVASTAVA, WING PO, No IV) CPT code 74139 Reason For Exam (CT Abdomen/Pelvis (No PO, [...] Imaging ACCESSION EXAM DATE/TIME PROCEDURE ORDERING PROVIDER [id number] 10/27/2021 13:14 EDT MRI Brain w/o Contrast UNASSIGNED, UNASSIGNED CPT code 82703 Reason For Exam (MRI Brain w/o Contrast) stroke Patient has TRACK VEHICLE REPAIRER shunt in place, please follow Radiology protocol [...] included. Hospitalist Progress Note 10/28/2021 11:37 AM [phone]: Please page me @ [phone] for patient care issues. [phone]: Please page senior java j2ee developer for any issues@ night Subjective: Admit Date: [...] abnormality and previous indwelling tubing history of TRACK VEHICLE REPAIRER shunt # Bilateral lower extremity wounds-wound care [...] Services This report was created using the Labels That Talk Speaking voice-activated system. Despite prompt dictation and careful editorial review, there may be subtle contextual errors in this report, due to misrecognition of the spoken word. Speech Language Pathology Facility/Department: [facility] Dysphagia Treatment Note [...] and gloves were worn throughout this session. [facility] Anticoagulation Management Service ([facility]) Inpatient Warfarin Consult HPI: Andrew Sifuentes is a 71 y.o. 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 Pt [...] appropriate. Brionna Le, PharmD candidate Josie Gupta [facility], PharmD IRVIN Consult Service is available daily [phone]. Please search for covering pharmacist name via [facility] or Groups --> Pharmacy --> Anti-Coagulation Consult Pharmacist (on 3rd page). If no response via [employer], please page [phone]. Follow up b/l foot wounds. No new [...] yr M with PMH obstructive hydrocephalus s/p TRACK VEHICLE REPAIRER shunt in 1987, needing multiple revisions and [...] normal limits and both old and new TRACK VEHICLE REPAIRER shunt tubing noted. At present patient is awake, follows commands, was able to tell his name, and that he was in hospital but not oriented to time. Per documentation patient had NCSE in May 2021, was on Vimpat, but it was discontinued as there was no evidence of recurrent seizures in july 2021 by Neurology at [facility], per daughter patient was on Dilantin for 31 yrs. Per daughter patient had seizures in the past and also felt he had staring episodes 10/26/2021 morning. Per daughter patient has been essentially bed bound in [place] since May 2021 but prior to that was independent Impressions: H/O hydrocephalus H/O seizure, H/O stroke Acute DVT H/O PE Plan: -MRI brain w/o contrast. Per daughter she would like MRI brain done to evaluate for strokes -CT head done during this admission today reported no hydrocephalus, ventricles within normal limits and both old and new TRACK VEHICLE REPAIRER shunt tubing noted -EEG mild to moderate slow, no seizures reported -Labs reviewed -Hydrocephalus management per Neurosurgery. At present patient does not have hydrocephalus on CT head done this admission. No Neurosurgery services available as inpatient in [facility]. Patient can follow up with Neurosurgery as outpatient and if ends up needing inpatient neurosurgery requirement then may need to be transferred to [facility]. -No clear clinical signs of ventriculitis. Defer evaluation to primary medical team/ID as deemed necessary. -Discussed with daughter in detail on . She was concerned that patient has had h/o seizures, and he has been taken off seizure medication, per note documentation patient had NCSE in May 2021 when he was admitted to [facility]. Per daughter she would [...] interim. This note has been generated using Wazoku dictation software. It may contain incorrect words, punctuation's and spellings that were not noted in the review of the note prior to signing. This note has been generated using Wazoku dictation software. It may contain incorrect words, [...] LABALBU, AMYLASE, LIPASE in the last 72 hours.@BRIEFLAB([facility]) ABGs: )No results for input(s): PH, PO2, [...] Radiology ACCESSION EXAM DATE/TIME PROCEDURE ORDERING PROVIDER [id number] 10/21/2021 15:30 EDT CR Calcaneus 2+ Views [id number] -SHRUTHI MALIK Left CPT code 49934 Reason For Exam (CR Calcaneus 2+ Views [...] Tomography ACCESSION EXAM DATE/TIME PROCEDURE ORDERING PROVIDER [id number] 10/26/2021 11:[address] Head or Brain w/o JUNIE PINEDA ALLISON Contrast CPT code 90529 Reason For Exam (CT Head or Brain w/o Contrast) hydrocephalus. thank you Report CLINICAL INFORMATION: Hydrocephalus. Shunt. 3 mm axial cuts through the head are obtained without IV contrast. The examination is compared to a previous study dated 06/29/2014. FINDINGS: Old TRACK VEHICLE REPAIRER shunt tubing is noted bilaterally. The new [...] are clear. IMPRESSION: 1. Old and new TRACK VEHICLE REPAIRER shunt tubing. 2. No hydrocephalus. 3. Atrophy [...] Imaging ACCESSION EXAM DATE/TIME PROCEDURE ORDERING PROVIDER [id number] 10/23/2021 11:08 EDT MRI Abdomen w/o Contrast WING SRIVASTAVA CPT code 59655 Reason For Exam (MRI Abdomen w/o Contrast) [...] Medicine ACCESSION EXAM DATE/TIME PROCEDURE ORDERING PROVIDER [id number] 10/21/2021 07:55 EDT NM Pulmonary Perfusion [id number] MAY BOGGS w/ Vent Aerosol CPT code 52898 A9567 Reason For Exam (NM Pulmonary Perfusion [...] Brachial Indices Extremity Bilateral Result Date: 10/22/2021 [facility] --- Ankle Brachial Index Report Patient Maria : 1950 Study 10/21/2021 Name: Andrew Gonzalez (71yrs) Date: Age: 71 Account: [id number] Gender: M Loc: 444W BP: Ordering Physician: Shruthi Malik Car Mover: Rody Cross RDMS, RVT Interpreting Physician: Carina Call --- Location: [facility] --- Indications: Foot wounds. Originally ordered as a full PVR. Ordering MICROSOFT APPLICATION DEVELOPER had to modify the order to ABIs [...] supine position. Images were obtained using a [employer] vascular ultrasound machine. --- Arterial pressure indices: [...] EXTREMITY BILATERAL VENOUS DUPLEX Result Date: 10/21/2021 [facility] [place] --- Lower Extremity Venous Duplex Report Patient DO MariaB: 1950 Study 10/21/2021 Name: Andrew Gonzalez (71yrs) Date: Age: 71 Account: [id number] Gender: M Loc: 444 BP: Ordering Physician: May Cash Car Mover: Rody Cross RDMS, RVT Interpreting Physician: Carina Call --- Location: [facility] --- Indications: Bilateral lower leg edema. --- [...] supine position. Images were obtained using a [employer] vascular ultrasound machine. --- Venous flow and [...] Radiology ACCESSION EXAM DATE/TIME PROCEDURE ORDERING PROVIDER [id number] 10/21/2021 08:16 EDT CR Chest 1 View Frontal [id number] MAY BOGGS CPT code 78107 Reason For Exam (CR Chest 1 View [...] Result Date: 10/22/2021 [id number] Computed Tomography ACCESSION EXAM DATE/TIME PROCEDURE ORDERING PROVIDER [id number] 10/22/2021 13:[address] Abdomen/Pelvis (No SRIVASTAVA, WING PO, No IV) CPT code 41338 Reason For Exam (CT Abdomen/Pelvis (No PO, [...] 12:48 PM Consults Speech Language Pathology Facility/Department: [facility] Dysphagia Treatment Note [...] reactivity and state change, indicative of a wdic-wg-bjdrdycf diffuse encephalopathy of nonspecific etiology. There are [...] Easy to chew diet/cut up. NEVILLE Jones M.A.CCC/MANAGER UNIVERSAL Time session ended: 1156 Total session minutes: 23 Images from the original note were not included. Hospitalist Progress Note 10/27/2021 10:40 AM [phone]: Please page me @ [phone] for patient care issues. [phone]: Please page senior java j2ee developer for any issues@ night Subjective: Admit Date: [...] Services This report was created using the Labels That Talk Speaking voice-activated system. Despite prompt dictation and careful editorial review, there may be subtle contextual errors in this report, due to misrecognition of the spoken word. [facility] Anticoagulation Management Service ([facility]) Inpatient Warfarin Consult HPI: Andrew Sifuentes is a 71 y.o. 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 Pt [...] and adjust dose accordingly. 3. [facility] will manage while inpatient and sign off at discharge. Patient resides in a SNF. 4. Will provide warfarin education including [facility] warfarin booklet, if appropriate. Thank you for this consult Brionna Le, PharmD candidate Josie Gupta RPh, PharmD [facility] Consult Service is available daily [phone]. Please search for covering pharmacist name via [employer] or Groups --> Pharmacy --> Anti-Coagulation Consult Pharmacist (on 3rd page). If no response via [employer], please page [phone]. I cleaned under patient's finger nails with [...] therapeutic status with Warfarin. Discussed with patient's senior staff accountant. Will continue to monitor. Total visit time [...] if concern Hydrocephalus Chronic WOODARD's - Revised TRACK VEHICLE REPAIRER shunt - daughter requested that pt have CT / MRI of brain and neurology be consulted, this was done. - "Hydrocephalus management per Neurosurgery. At present patient does not have hydrocephalus on CT head done this morning. No Neurosurgery services available as inpatient in [facility]. Patient can follow up with Neurosurgery as outpatient and if ends up needing inpatient neurosurgery requirement then may need to be transferred to [facility]. " Seizure history, unspecified - daughter [...] have been ordered. Pt was loaded with Hunch pending results of scans. Please see my separate note from today for further details from previous hospital stay. Patient declined lunch or assistance with lunch. Follow up b/l foot wounds . Patient doesn't want dressings removed. Patient is awake and alert. Dressings intact. Offloading boots are on. Ulcer b/l PE, chart reviewed. Will get report from nursing. Continue wound care. [facility] Anticoagulation Management Service ([facility]) Inpatient Warfarin Consult HPI: Andrew Sifuentes is a 71 y.o. 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 Pt [...] PharmD IRVIN Consult Service is available daily [phone]. Please search for covering pharmacist name via [facility] or Groups --> Pharmacy --> Anti-Coagulation Consult Pharmacist (on 3rd page). If no response via [facility], please page [phone]. Moon daughter stated that any of patient's family can call and obtain an update on patient's status. Speech Language Pathology Facility/Department: [facility] CLINICAL BEDSIDE SWALLOW [...] a small bore straw. Additionally discussed with MANAGER UNIVERSAL, agreeable to assess tomorrow. Recent Chest Xray/CT [...] and liquids between bites. Treatment Plan Requires MANAGER UNIVERSAL Intervention: Yes Duration of Treatment: 2 weeks [...] Education Response: Verbalizes understanding;Needs reinforcement Therapy Time MANAGER UNIVERSAL Individual Minutes Time In: 826 Time Out: 852 Minutes: NEVILLE Jones 10/26/2021 9:20 AM Comprehensive Nutrition Assessment Type and Reason for Visit: Initial (DT referral for wounds) Nutrition Recommendations/Plan: 1. Recommend to continue: Easy to Chew diet with Thin Liquids as currently ordered and safe for patient to participate in. Discussed with: RN, MICROSOFT APPLICATION DEVELOPER, and MANAGER UNIVERSAL. MANAGER UNIVERSAL to assess tomorrow, best diet and liquid [...] & deltoids),Scapula (trapezius) Fluid Accumulation: Mild Extremities Grinder Machine Knife Setter Strength: Not Performed Nutrition Assessment: 71 year [...] a small bore straw. Additionally discussed with MANAGER UNIVERSAL, agreeable to assess tomorrow. Nutrition Related Findings: [...] Anthropometric Measures: Height: 5' 7.01" (170.2 cm) [place] Body Weight (IBW): 148 lbs (67 kg) Admission Body Weight: 240 lb (108.9 kg) (stated 10/21/21) Current Body Weight: 205 lb 4 oz (93.1 kg) (10/25/21), 138.7 % IBW. Weight Source: Bed Scale Current BMI (kg/m2): 32.1 Usual Body Weight: 272 lb 11.3 oz (123.7 kg) (05/30/21 and 232.5# noted 08/14/21 at [facility] per EMR Review) % Weight Change (Calculated): -24.7 BMI Categories: Obese Class 1 (BMI 30.0-34.9) Estimated Daily Nutrient Needs: Energy Requirements Based On: Kcal/kg Weight Used for Energy Requirements: [place] (67.15 kg) Energy (kcal/day): 5608-5912 (27-32 kcal/kg IBW) --> increased need d/t wounds Weight Used for Protein Requirements: [place] (67.15 kg) Protein (g/day): 67-101 (1.0-1.5 g protein/kg IBW) Method Used for Fluid Requirements: Other (Comment) Fluid (ml/day): 0047-9858 mL daily or per MD Nutrition Diagnosis: [...] Plan of Care discussed with: Patient, RN, MICROS[employer]FT APPLICATION DEVELOPER Edwin Goals: Goals: other (specify) Specify Other [...] to determine Puja Almanza RD, LD Contact: *[phone] [facility] Hematology/Oncology Attending Progress Note SUBJECTIVE: Patient seen [...] IRON, TIBC, FERRITIN No results found for: [id number] No results found for: FOLATE PT 15.6 INR 1.5 CA 19 - 9 is 17 Protein S 138% Protein C 186% ASSESSMENT AND PLAN GI input appreciated. Patient continues with subtherapeutic INR. GI input appreciated. Discussed with patient's senior staff accountant. Will continue monitor. Total visit time > 35 minutes. [facility] Anticoagulation Management Service ([facility]) Inpatient Warfarin Consult HPI: Andrew Sifuentes is a 71 y.o. 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 Pt [...] and adjust dose accordingly. 3. [facility] will manage while inpatient and sign off at discharge. Patient resides in a SNF. 4. Will provide warfarin education including [facility] warfarin booklet, if appropriate. Thank you for this consult Brionna Le, PharmD candidate Josie Gupta RPh, PharmD [facility] Consult Service is available daily [phone]. Please search for covering pharmacist name via [facility] or Groups --> Pharmacy --> Anti-Coagulation Consult Pharmacist (on 3rd page). If no response via [facility], please page [phone]. Progress Note 10/25/2021 9:36 AM Name: Andrew [...] if concern Hydrocephalus Chronic WOODARD's - Revised TRACK VEHICLE REPAIRER shunt DC planning - 10/25/21: INR subtherapeutic, [...] if concern Hydrocephalus Chronic WOODARD's - Revised TRACK VEHICLE REPAIRER shunt DC planning - Can be DC'd back to ECF once MRI done if no acute findings, MRI is done, defer to hem / onc on plan for that, awaiting chest PA with fluoro Patient seen and chart reviewed. Consult dictated. Will ask GI to assess concerning the etiology of liver lesions. Will continue to monitor. [facility] Anticoagulation Management Service ([facility]) Inpatient Warfarin Consult HPI: Andrew Sifuentes is a 71 y.o. 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 Pt [...] PharmD IR[facility]IN Consult Service is available daily [phone]. Please search for covering pharmacist name via [facility] or Groups --> Pharmacy --> Anti-Coagulation Consult Pharmacist (on 3rd page). If no response via [facility], please page [phone]. Follow up foot wounds Patient is more alert this morning. Waffle boots are on Ulcer left heel ulcer right foot Foot drop PE, chart reviewed. Patient relates that he does not walk at home. c ontinue wound care. Images from the original note were not included. Hospitalist Progress Note 10/23/2021 1:47 PM [phone]: Please page me ([phone]) or perfect serve me for patient care issues. [phone]: Please page [facility] night Hospitalist for any issues. 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 Pt referred to RD for foot ulcers. Occupational Therapy Facility/Department: [facility] Occupational Therapy Initial Assessment Name: Andrew Sifuentes : 1950 Date of Service: 10/23/2021 OT eval and treat orders received. Chart reviewed. Per notes pt from [facility], is Boaz lift at baseline, non-ambulatory, and requires assist for all ADLs. Will d/c OT orders. Elizabeth Gutierrez OT Physical Therapy Facility/Department: [facility] Physical Therapy Initial Assessment Name: Andrew Sifuentes : 1950 Date of Service: 10/23/2021 PT eval and treat orders received. Chart reviewed. Per notes pt from [facility], is Boaz lift at baseline, non-ambulatory. Will d/c PT orders. Lloyd Silva PT [facility] Anticoagulation Management Service ([facility]) Inpatient Warfarin Consult HPI: Andrew Sifuentes is a 71 y.o. 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 Pt [...] SNF. 4. Will provide warfarin education including [facility] warfarin booklet, if appropriate. Thank you for this consult Lisa Forrest RPH, PharmD [facility] Consult Service is available daily [phone]. Please search for covering pharmacist name via [facility] or Groups --> Pharmacy --> Anti-Coagulation Consult Pharmacist (on 3rd page). If no response via [facility], please page [phone]. Department of Podiatry Attending Consult Note Reason for Consult: Wound care Requesting Physician: MD Shailesh CHIEF COMPLAINT: Foot wounds HISTORY OF PRESENT ILLNESS: The patient is a 71 y.o. male with b/l foot wounds. Patient is awake , but not answering questions. 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 Will follow . Thank you. [facility] Respiratory Care Department Progress Note As part [...] included. Hospitalist Progress Note 10/22/2021 6:33 AM [phone]: Please page me ([phone]) or perfect serve me for patient care issues. [phone]: Please page [facility] night Hospitalist for any [...] consider MRI if concern Hydrocephalus - Revised TRACK VEHICLE REPAIRER shunt Interval History: No overnight issues. 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 Hospitalist Progress Note 10/21/2021 5:31 PM [phone]: Please page me ([phone]) or perfect serve me for patient care issues. [phone]: Please page [facility] Hospitalist for any issues. Subjective: Admit Date: 10/21/2021 PCP: MONIKA STALEY MD Room#: 819/1462 Admitting Synopsis: 71 y/o male presents from [...] May he was independent, live alone. Since Forrest he has had PE's and required SNF [...] Will need chronic OAC Hydrocephalus - Revised TRACK VEHICLE REPAIRER shunt Interval History: No overnight issues. 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 Her phone number is [phone] to speak with whomever was attempting to reach out to her. documented in this encounter [facility] Work Phone: 10-17-2021 Miscellaneous Notes Mr. Sifuentes missed his hospital stay follow-up appointment w. Dr. Lim today. Called to Reschedule. Could not get through. "Subscriber you have dialed not in service" - was the automated voice mail. Unable to leave . No other phone# available. Ramya Negro Senior Water Resources Engineer [facility] documented in this encounter [facility] 08-19-2021 Note [facility] 08-19-2021 Note [facility] 08-18-2021 Note [facility] 08-18-2021 Note [facility] 08-17-2021 Note [facility] 08-17-2021 Note [facility] 08-16-2021 Note [facility] 08-16-2021 Note HNO ID: [id number] Author: Katt Kelsey DO Service: Hospital Medicine Author Type: Physician Type: Plan of Care Filed: 08/16/2021 12:26 PM Note Text: Spoke with RN that line is a PICC. Katt Kelsey DO 08/16/2021 12:26 PM [facility] 08-16-2021 Note [facility] 08-16-2021 Note [facility] 08-15-2021 Note [facility] 08-15-2021 Note [facility] 08-15-2021 Note [facility] 08-14-2021 Note [facility] 08-14-2021 Note [facility] 08-13-2021 Note [facility] 08-13-2021 Note [facility] 08-13-2021 Note [facility] 08-13-2021 Note HNO ID: [id number] Author: Interface Note Service: ? Author Type: ? Type: Progress Notes Filed: 08/13/2021 3:10 AM Note Text: Epic Scheduled Downtime: 08/13/2021 1:08:47 AM to 08/13/2021 2:53:47 AM [facility] 08-12-2021 Note [facility] 08-12-2021 Note [facility] 08-12-2021 Note [facility] 08-11-2021 Note [facility] 08-11-2021 Note [facility] 08[facility]11-2021 Note [facility] 08-11-2021 Note [facility] 08[facility]11-2021 Note [facility] 08-11-2021 Note [facility] 08-10-2021 Note [facility] 08[facility]10-2021 Note [facility] 08-10-2021 Note [facility] 08-10-2021 Note [facility] 08-09-2021 Note HNO ID: [id number] Author: Shannon Brooks RN Service: ? Author Type: Registered Nurse Type: Nursing Progress Note Filed: 08/09/2021 7:33 PM Note Text: Report called to unit [facility] 08-09-2021 Note [facility] 08-09-2021 Note [facility] 08-09-2021 Note [facility] 08-08-2021 Note [facility] 08[facility]08-2021 Note [facility] 08-08-2021 Note [facility] 08-07-2021 Note [facility] 08-07-2021 Note [facility] 08-07-2021 Note [facility] 08[facility]07-2021 Note [facility] 08[facility]07-2021 Note [facility] 08-06-2021 Note [facility] 08[facility]06-2021 Note [facility] 08[facility]06-2021 Note [facility] 08-05-2021 Note [facility] 08-05-2021 Note [facility] 08-05-2021 Note [facility] 08-04-2021 Note [facility] 08-04-2021 Note [facility] 08[facility]04-2021 Note [facility] 08-03-2021 Note [facility] 08[facility]03-2021 Note [facility] 08[facility]03-2021 Note [facility] 08-02-2021 Note [facility] 08[facility]02-2021 Note [facility] 08-02-2021 Note [facility] 08-01-2021 Note [facility] 08-01-2021 Note [facility] 08[facility]01-2021 Note [facility] 08-01-2021 Note [facility] 07-31-2021 Note [facility] 07-31-2021 Note [facility] 07-30-2021 Note [facility] 07[facility]30-2021 Note [facility] 07[facility]30-2021 Note [facility] 07-29-2021 Note [facility] 07[facility]29-2021 Note [facility] 07-29-2021 Note [facility] 07-28-2021 Note [facility] 07[facility]28-2021 Note [facility] 07[facility]28-2021 Note [facility] 07-27-2021 Note [facility] 07[facility]27-2021 Note [facility] 07-27-2021 Note [facility] 07-26-2021 Note [facility] 07[facility]26-2021 Note [facility] 07-26-2021 Note [facility] 07[facility]26-2021 Note [facility] 07-26-2021 Note [facility] 07-25-2021 Note [facility] 07-25-2021 Note [facility] 07-25-2021 Note [facility] 07-25-2021 Note [facility] 07-24-2021 Note [facility] 07-24-2021 Note [facility] 07-24-2021 Note [facility] 07-23-2021 Note [facility] 07-23-2021 Note [facility] 07-23-2021 Note [facility] 07-23-2021 Note [facility] 07[facility]23-2021 Note [facility] 07-22-2021 Note [facility] 07[facility]22-2021 Note [facility] 07[facility]22-2021 Note [facility] 07-21-2021 Note [facility] 07-21-2021 Note [facility] 07-21-2021 Note [facility] 07-21-2021 History of Past i [...] history of fever, elevated WBC, RP hematoma TRACK VEHICLE REPAIRER shunt tip grew anaerobic gram positive cocci 06/08/2021 PLAN: TRACK VEHICLE REPAIRER shunt tip sent to [facility], awaiting cx Continue Meropenem per I.D Sputum [...] Hydrocephalus - repeat CTH 06/09 stable - 2 VA shunt removal and VPS shunt placed- EVD removed 06/10 PLAN: - following CSF studies; 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 for WATCH ELECTRICIAN infection at this time - ID following- Continue antibiotics: Meropenem -CSF leak from EVD site, appreciate NSGY recs> stat repeat CTH on 06/07 d/t concern for CSF leak, cephalematoma, CTH unremarkable -Tolerating TF - SBT WTE - PICC line placed documented as of this encounter (statuses as of 10/17/2021) [facility]03-17-2022 [facility]03-16-2022 [facility]03-16-2022 [facility]03-16-2022 Note [facility]03-16-2022 [facility] 07-19-2021 [facility]03-15-2022 [facility]03-15-2022 [facility]03-14-2022 [facility]03-14-2022 [facility]03-13-2022 [facility]03-13-2022 [facility]03-12-2022 Note [facility]03-12-2022 [facility] 07-15-2021 [facility]03-11-2022 [facility]03-10-2022 [facility]03-10-2022 [facility]03[facility]10-2022 [facility]03-09-2022 [facility]03-09-2022 [facility]03-09-2022 Note [facility]03-09-2022 [facility] 07-12-2021 [facility]03-08-2022 [facility]03-07-2022 [facility]03-07-2022 [facility]03-07-2022 [facility]03-07-2022 [facility]03-06-2022 [facility]03-06-2022 Note [facility]03-05-2022 [facility] 07-09-2021 [facility]03-05-2022 [facility]03-05-2022 [facility]03-05-2022 NoteHNO ID: [id number] Author: Lizette Valderrama RN Service: Nursing Author Type: Registered Nurse Type: Nursing Progress Note Filed: 07/09/2021 1:41 AM Note Text: Report called to [facility]03-04-2022 NoteHNO ID: [id number] Author: Lizette Valderrama RN Service: Nursing Author Type: Registered Nurse Type: Nursing Progress Note Filed: 07/08/2021 8:57 PM Note Text: [address]49 back to PACU [address] [place], [place] 0307603-04-2022 NoteHNO ID: [id number] Author: Sukhi Chery APRN.CNP Service: ? Author Type: Nurse Practitioner Type: Progress Notes Filed: 07/09/2021 6:46 PM Note Text: Connected Care Unit Progress Note Patient Name: Andrew Sifuentes Patient Facility: [facility] Admit Date 06/28/2021 Level of Care: Skilled [...] Dept Phone 07/21/2021 11:00 AM NICOLE LIM [phone] HPI: (Per Dr. Beltran) Andrew Lisa GustafsonMaria is being seen today for penitentiary facility (SNF) admission AND management of weakness, tube feed, infected retroperitoneal infection and seizure. ? This is a 71 year old male who presents from [facility] with primary admitting diagnosis of [...] CT brain concerning for hydrocephalus. Tip of TRACK VEHICLE REPAIRER shunt was found to be in the [...] slow to respond. Ordered to transfer to [facility] ED for evaluation of neurological and [...] (more content not included)... [facility]03-04-2022 [facility]03-04-2022 [facility]03-02-2022 NoteHNO ID: [id number] Author: Sukhi Chery APRN.IRON HANDLER Service: ? Author Type: Nurse Practitioner Type: Progress Notes Filed: 07/09/2021 6:20 PM Note Text: Connected Care Unit Progress Note Patient Name: Andrew Sifuentes Patient Facility: [facility] Admit Date 06/28/2021 Level of Care: Skilled [...] Dept Phone 07/21/2021 11:00 AM NICOLE LIM [phone] HPI: (Per Dr. Beltran) Andrew Sifuentes is being seen today for penitentiary facility (SNF) admission AND management of weakness, tube feed, infected retroperitoneal infection and seizure. ? This is a 71 year old male who presents from [facility] with primary admitting diagnosis of [...] CT brain concerning for hydrocephalus. Tip of TRACK VEHICLE REPAIRER shunt was found to be in the [...] uncontrolled pain exacerbations. Medications: Medications listed in [facility] during SNF admission may not be [...] clear. (more content not included)...[facility]02-28-2022 NoteHNO ID: [id number] Author: Sukhi Chery APRN.CNP Service: ? Author Type: Nurse Practitioner Type: Progress Notes Filed: 07/09/2021 6:07 PM Note Text: Connected Care Unit Progress Note Patient Name: Andrew Sifuentes Patient Facility: [facility] Admit Date 06/28/2021 Level of Care: Skilled [...] but nursing notes it was drawn by robotic maintenance technician as vancomycin was being infused; reordered trough - PICC Line Intact - No fevers or chills per patient or staff (R53.81) Debility - Certify therapies - Maintain high falls risk precautions - pt/staff verbalize understanding validated via teach back - Monitor safety awareness Appointments for Next 60 Days Date Time Provider Location Dept Phone 07/21/2021 11:00 AM NICOLE LIM [phone] HPI: (Per Dr. Beltran) Andrew Sifuentes is being seen today for penitentiary facility (SNF) admission AND management of weakness, tube feed, infected retroperitoneal infection and seizure. ? This is a 71 year old male who presents from [facility] with primary admitting diagnosis of [...] CT brain concerning for hydrocephalus. Tip of TRACK VEHICLE REPAIRER shunt was found to be in the [...] to facility records. OBJECTIVE: Labs/diagnostics: 07/04/2021 Glucose=91 Se=674 K=3.8 Hh=227 CO2=24 BUN=14 Creatinine=0.5 PWV=550 Ca=9.0 Protein,Total=6.7 Albumin=3.6 FktHkwq=612 AST=15 ALT=21 Bilirubin,Totall=0.5 WBC=10.7 RBC=4.04 Hgb=10.9 Hct=35.3 Etrbdprg=465 VancomycinTr (more content not included)...[facility]02-24-2022 NoteHNO ID: [id number] Author: Sukhi Chery APRN.IRON HANDLER Service: ? Author Type: Nurse Practitioner Type: Progress Notes Filed: 07/09/2021 5:43 PM Note Text: Connected Care Unit Progress Note Patient Name: Andrew Sifuentes Patient Facility: [facility] Admit Date 06/28/2021 Level of Care: Skilled [...] unspecified whether septic shock present ([facility]) - Dr. Mckenzie with ID Following - Continue on Vancomycin; recent trough was 15 - PICC Line Intact (R53.81) Debility - Certify therapies - Maintain high falls risk precautions - pt/staff verbalize understanding validated via teach back - Monitor safety awareness Appointments for Next 60 Days Date Time Provider Location Dept Phone 07/21/2021 11:00 AM NICOLE LIM [phone] HPI: (Per Dr. Beltran) Andrew Sifuentes is being seen today for penitentiary facility (SNF) admission AND management of weakness, tube feed, infected retroperitoneal infection and seizure. ? This is a 71 year old male who presents from [facility] with primary admitting diagnosis of [...] CT brain concerning for hydrocephalus. Tip of TRACK VEHICLE REPAIRER shunt was found to be in the [...] to facility records. OBJECTIVE: Labs/diagnostics: 07/01/2021 Glucose=83 Ou=514 K=4.1 Rf=827 CO2=27 BUN=22 Creatinine=0.6 SGN=482 Ca=8.7 WBC=10.8 RBC=3.40 Hgb=9.3 Hct=29.9 Gvvcsyky=233 Vital Signs: BP 128/80 Pulse 77 Temp 36.7 ?C (98 ?F) Resp 20 Ht 182.9 cm (6') Wt 113 kg (249 lb 3.2 oz) SpO2 96% BMI 33.80 kg/m? Physical Exam: Physical Exam Vitals reviewed. Constitutional: General: He is not in acute distress. (more content not included)...[facility]02-22-2022 [facility]02-22-2022 [facility]02-21-2022 [facility]02-21-2022 Note [facility]02-20-2022 [facility] 06-26-2021 [facility]02-19-2022 [facility]02-19-2022 [facility]02-18-2022 [facility]02-18-2022 [facility]02-18-2022 [facility]02-17-2022 [facility]02-17-2022 Note [facility]02-17-2022 [facility] 06-22-2021 NoteHNO ID: [id number] Author: Xiomy England RN Service: Nursing Author Type: Registered Nurse Type: Nursing Progress Note Filed: 06/22/2021 7:22 PM Note Text: RT contacted as pt has wheezing auscultated and same auditory. For prn Treatment.[facility]02-16-2022 [facility]02-16-2022 [facility]02-16-2022 [facility]02-16-2022 [facility]02-16-2022 [facility]02-15-2022 [facility]02-15-2022 Note [facility]02-15-2022 [facility] 06-21-2021 [facility]02-14-2022 [facility]02-14-2022 [facility]02-14-2022 [facility]02-14-2022 [facility]02-14-2022 [facility]02-13-2022 [facility]02-13-2022 Note [facility]02-13-2022 [facility] 06-19-2021 [facility]02-13-2022 [facility]02-12-2022 [facility]02-12-2022 [facility]02-12-2022 [facility]02-12-2022 [facility]02-12-2022 [facility]02-12-2022 Note [facility]02-12-2022 NoteHNO ID: [id number] Author: Interface Note Service: ? Author Type: ? Type: Progress Notes Filed: 06/18/2021 3:10 AM Note Text: Epic Scheduled Downtime: 06/18/2021 1:00:00 AM to 06/18/2021 2:27:00 [facility]02-11-2022 [facility]02-11-2022 Note [facility]02-11-2022 [facility] 06-17-2021 [facility]02-11-2022 [facility]02-11-2022 [facility]02-10-2022 [facility]02-10-2022 [facility]02[facility]10-2022 [facility]02-10-2022 [facility]02-10-2022 Note [facility]02-10-2022 [facility] 06-15-2021 [facility]02-09-2022 NoteHNO ID: [id number] Author: Lamonte Kline DO Service: Neurology ICU Author Type: Resident Type: Plan of Care Filed: 06/15/2021 6:21 PM Note Text: Patient's daughter Melissa updated on plan of care and critical condition, all questions answered.[facility]02-09-2022 [facility]02-09-2022 [facility]02-09-2022 [facility]02[facility]09-2022 [facility]02-09-2022 Note [facility]02-09-2022 [facility] 06-15-2021 [facility]02-08-2022 [facility]02-08-2022 [facility]02-08-2022 [facility]02-08-2022 [facility]02-07-2022 [facility]02[facility]07-2022 [facility]02-07-2022 Note [facility]02-07-2022 [facility] 06-12-2021 [facility]02-06-2022 [facility]02-06-2022 [facility]02-05-2022 [facility]02-05-2022 [facility]02-04-2022 [facility]02-04-2022 [facility]02-04-2022 Note [facility]02-04-2022 [facility] 06-09-2021 [facility]02-03-2022 [facility]02-03-2022 [facility]02-03-2022 [facility]02-02-2022 [facility]02-02-2022 NoteHNO ID: [id number] Author: Luis Diaz RN Service: ? Author Type: Registered Nurse Type: Nursing Progress Note Filed: 06/08/2021 9:23 AM Note Text: Patient off the floor to OR at this time.[facility]02-02-2022 [facility]02-02-2022 [facility] 06-08-2021 NoteHNO ID: [id number] Author: Eloise Samuel RN Service: ? Author Type: Registered Nurse Type: Nursing Progress Note Filed: 06/08/2021 12:46 AM Note Text: Dr. Brito notified of changes throughout shift. [facility] 06-07-2021 NoteHNO ID: [id number] Author: Eloise Samuel RN Service: ? Author Type: Registered Nurse Type: Nursing Progress Note Filed: 06/07/2021 8:01 PM Note Text: Neuro surg IRON HANDLER notified of downward deviation of pupils. No new orders at this time.[facility]02-01-2022 [facility]02-01-2022 [facility]02-01-2022 [facility]02-01-2022 [facility]01-31-2022 [facility]01-31-2022 [facility]01-31-2022 Note [facility]01-31-2022 [facility] 06-05-2021 [facility]01-30-2022 [facility]01-30-2022 [facility]01-29-2022 [facility]01-29-2022 NoteHNO ID: [id number] Author: Jermaine Miller PA-C Service: Neurosurgery Author Type: Physician Archivist Economic History Type: Plan of Care Filed: 06/04/2021 1:59 PM Note Text: Discussed with Dr. Charles CT brain results. At this time, continue with EVD at 5 [facility]01-29-2022 [facility] 06-04-2021 [facility]01-28-2022 [facility]01-28-2022 NoteHNO ID: [id number] Author: Mauricio Frank DO Service: Neurology ICU Author Type: Physician Type: Plan of Care Filed: 06/03/2021 2:38 PM Note Text: I spoke with Melissa and updated her over the phone. Mauricio Frank, [facility]01-28-2022 [facility]01-28-2022 [facility]01-27-2022 [facility]01-27-2022 [facility]01-27-2022 Note [facility]01-26-2022 [facility] 06-01-2021 [facility]01-26-2022 [facility]01-26-2022 [facility]01-26-2022 [facility]01-25-2022 [facility]01-25-2022 [facility]01-25-2022 [facility]01-25-2022 Note [facility]01-25-2022 [facility] 05[facility]31-2021 [facility] Leg swelling- Primary [...] Work Phone: Evaluation noteNo assessment information available [facility] Work Phone: Evaluation note* Diagnosis Other fatigue- Primary documented in this encounter [facility] Work Phone: Evaluation note* Diagnosis Heel ulceration, left, with unspecified severity (HCC)- Primary documented in this encounter [facility] Work Phone: Evaluation note* Diagnosis Fall, initial encounter- Primary Anticoagulated Encounter for long-term (current) use of anticoagulants documented in this encounter [facility] Work Phone: Evaluation note* Diagnosis Left flank pain- Primary Abdominal pain, unspecified site Calculus of ureter Disease of prostate Unspecified disorder of prostate BPH with urinary obstruction Hypertrophy of prostate with urinary obstruction and other lower urinary tract symptoms (LUTS) documented in this encounter [facility] NexmoEvaluation note* Diagnosis Left flank pain Abdominal pain, unspecified site Calculus of ureter documented in this encounter [facility] NexmoEvaluation note* Diagnosis Left flank pain- Primary Abdominal pain, unspecified site BPH with urinary obstruction Hypertrophy of prostate with urinary obstruction and other lower urinary tract symptoms (LUTS) History of kidney stones documented in this encounter [facility] HealthInstructions* Name Dates Details Instructions not documented [id number] Work Phone: Instructions* Name Dates Details Instructions not documented [id number] [address] [place] Work Phone: Reason for referral (narrative)No reason for referral information availableWPomerene Hospital Work Phone: Advance Directives No Advanced Directives Records FoundDocuments on File Type Date Recorded Patient Environmental Air Specialist Expl anation Advance Directives and Living Will Power of Genetic Engineer Documents on File Type Date Recorded Patient Environmental Air Specialist Expl anation Advance Directive(s) 06/02/2021 2:45 PM [...] Maker Relationship: 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 Adult Children (retail field representative) Documents on File Type Date Recorded Patient Environmental Air Specialist Expl anation ACP-Advance Directive ACP-Power of Genetic Engineer Latest Code Status on File Code Status Date Activated Date Inactivated Comments Full Code 10/21/2021 4:09 AM Healthcare Agents on File Name Relationship Healthcare Agent Relationshi p Communication Melissa Maria Child Primary Decision Maker deann Maria Child Secondary Decision Maker Documents on File Type Date Recorded Patient Environmental Air Specialist Expl anation ACP-Advance Directive ACP-Power of Genetic Engineer ACP-Do Not Resuscitate 11/01/2021 7:03 AM Latest Code Status on File Code Status Date Activated Date Inactivated Comments Full Code 10/21/2021 4:09 AM 10/29/2021 7:25 PM Healthcare Agents on File Name Relationship Healthcare Agent Relationshi p Communication Melissa Maria Child Primary Decision Maker deann Maria Child Secondary Decision Maker Documents on File Type Date Recorded Patient Environmental Air Specialist Expl anation ACP-Do Not Resuscitate 11/03/2021 10:15 AM ACP-Do Not Resuscitate 11/01/2021 7:03 AM Healthcare Agents on File Name Relationship Healthcare Agent Relationshi p Communication Melissa Maria Child Primary Decision Maker deann Gustafsonyer Child Secondary Decision Maker Documents on File Type Date Recorded Patient Environmental Air Specialist Expl anation ACP-Do Not Resuscitate 11/03/2021 10:15 [...] Documents on File Type Date Recorded Patient Environmental Air Specialist Expl anation DNR (Do Not Resuscitate) 10/31/2021 DNR (Do Not Resuscitate) 10/21/2021 Documents on File Type Date Recorded Patient Environmental Air Specialist Expl anation DNR (Do Not Resuscitate) 10/31/2021 [...] WORK LABWORK Chief Complaint LAB WORK LABWORK [facility] LAB WORK [facility] LABWORK Chief Complaint LAB WORK LABWORK [facility] LAB WORK [facility]CF LABWORK LABWORK LABWORK [facility] LAB WORK CHCF LABWORK CHCF LAB WORK LABWORK [facility]CF LAB WORK LABWORK CHCF LABWORK Chief Complaint LAB WORK LABWORK CHCF LAB WORK CHCF LABWORK LABWORK LABWORK CHCF LAB WORK CHCF LABWORK CHCF LAB WORK LABWORK CHCF LAB WORK LABWORK CHCF LABWORK CHCF LABWORK LABWORK Chief Complaint LAB WORK LABWORK CHCF LAB WORK CHCF LABWORK LABWORK LABWORK CHCF LAB WORK CHCF LABWORK CHCF LAB WORK LABWORK CHCF LAB WORK LABWORK CHCF LABWORK CHCF LABWORK LABWORK CHCF LAB WORK Chief Complaint LABWORK CHCF LAB WORK CHCF LABWORK LABWORK LABWORK CHCF LAB WORK CHCF LABWORK CHCF LAB WORK LABWORK CHCF LAB WORK LABWORK CHCF LABWORK CHCF LABWORK LABWORK LABWORK CHCF LAB WORK Chief Complaint LABWORK CHCF LAB WORK CHCF LABWORK LABWORK LABWORK CHCF LAB WORK CHCF LABWORK CHCF LAB WORK LABWORK CHCF LAB WORK LABWORK CHCF LABWORK CHCF LABWORK LABWORK LABWORK CHCF LAB WORK LABWORK CHCF LABWORK CHCF LAB WORK CHCF LABWORK Chief Complaint CHCF LAB WOR K CHCF LABWORK LABWORK LABWORK CHCF LAB WORK CHCF LABWORK CHCF LAB WORK LABWORK CHCF LAB WORK LABWORK CHCF LABWORK CHCF LABWORK LABWORK LABWORK CHCF LAB WORK LABWORK CHCF LABWORK CHCF LAB WORK CHCF LABWORK CHCF LAB WORK Chief Complaint CHCF LABWORK LABWORK LABWORK CHCF LAB WORK CHCF LABWORK CHCF LAB WORK LABWORK CHCF LAB WORK LABWORK CHCF LABWORK CHCF LABWORK LABWORK LABWORK CHCF LAB WORK LABWORK CHCF LABWORK CHCF LAB WORK CHCF LABWORK LABWORK CHCF LAB WORK Chief Complaint CHCF LAB WOR K CHCF LABWORK CHCF LAB WORK LABWORK CHCF LAB WORK LABWORK CHCF LABWORK CHCF LABWORK LABWORK LABWORK CHCF LAB WORK LABWORK CHCF LABWORK CHCF LAB WORK CHCF LABWORK LABWORK LABWORK CHCF LAB WORK CHCF PATIENT CHCF LABWORK CHCF LABWORK Chief Complaint LABWORK CHCF LAB WORK LABWORK CHCF LABWORK CHCF LABWORK LABWORK LABWORK CHCF LAB WORK LABWORK CHCF LABWORK CHCF LAB WORK CHCF LABWORK LABWORK LABWORK CHCF LAB WORK CHCF PATIENT CHCF LABWORK CHCF LABWORK CHCF LAB WORK Chief Complaint LABWORK CHCF LABWORK CHCF LABWORK LABWORK LABWORK CHCF LAB WORK LABWORK CHCF LABWORK CHCF LAB WORK CHCF LABWORK LABWORK LABWORK CHCF LAB WORK CHCF PATIENT CHCF LABWORK CHCF LABWORK CHCF LAB WORK CHCF LAB WORK CHCF LAB WORK Chief Complaint LABWORK LABWORK CHCF LAB WORK CHCF PATIENT CHCF LABWORK CHCF LABWORK CHCF LAB WORK CHCF LAB WORK CHCF LAB WORK CHCF LABWORK CHCF LABWORK LABWORK CHCF LAB WORK LABWORK Chief Complaint CHCF LAB WOR K CHCF PATIENT CHCF LABWORK CHCF LABWORK CHCF LAB WORK CHCF LAB WORK CHCF LAB WORK CHCF LABWORK CHCF LABWORK LABWORK CHCF LAB WORK LABWORK CHCF LABWORK Chief Complaint CHCF PATIENT CHCF LABWORK CHCF LABWORK CHCF LAB WORK CHCF LAB WORK CHCF LAB WORK CHCF LABWORK CHCF LABWORK LABWORK CHCF LAB WORK LABWORK CHCF LABWORK CHCF LABWORK Chief Complaint CHCF LABWORK CHCF LAB WORK CHCF LAB WORK CHCF LAB WORK CHCF LABWORK CHCF LABWORK LABWORK CHCF LAB WORK LABWORK CHCF LABWORK CHCF LABWORK CHCF LABWORK Chief Complaint CHCF LABWORK CHCF LAB WORK CHCF LAB WORK CHCF LAB WORK CHCF LABWORK CHCF LABWORK LABWORK CHCF LAB WORK LABWORK CHCF LABWORK CHCF LABWORK CHCF LABWORK CHCF LABWORK Chief Complaint CHCF LABWORK LABWORK CHCF LAB WORK LABWORK CHCF LABWORK CHCF LABWORK CHCF LABWORK CHCF LABWORK CHCF LABWORK LABWORK CHCF LABWORK Chief Complaint LABWORK CHCF LAB WORK LABWORK CHCF LABWORK CHCF LABWORK CHCF LABWORK CHCF LABWORK CHCF LABWORK LABWORK LABWORK CHCF LABWORK CHCF LAB WORK CHCF LABWORK CHCF LAB WORK Chief Complaint LABWORK CHCF LAB WORK LABWORK CHCF LABWORK CHCF LABWORK CHCF LABWORK CHCF LABWORK CHCF LABWORK LABWORK LABWORK CHCF LABWORK CHCF LAB WORK CHCF LABWORK CHCF LAB WORK CHCF LABWORK Chief Complaint LABWORK CHCF LAB WORK LABWORK CHCF LABWORK CHCF LABWORK CHCF LABWORK CHCF LABWORK CHCF LABWORK LABWORK LABWORK CHCF LABWORK CHCF LAB WORK CHCF LABWORK CHCF LAB WORK CHCF LABWORK LABWORK Chief Complaint CHCF LABWORK CHCF LABWORK CHCF LABWORK CHCF LABWORK CHCF LABWORK LABWORK LABWORK CHCF LABWORK CHCF LAB WORK CHCF LABWORK CHCF LAB WORK CHCF LABWORK LABWORK CHCF LABWORK Chief Complaint CHCF LABWORK CHCF LABWORK CHCF LABWORK CHCF LABWORK CHCF LABWORK LABWORK LABWORK CHCF LABWORK CHCF LAB WORK CHCF LABWORK CHCF LAB WORK CHCF LABWORK LABWORK CHCF LABWORK LABWORK Chief Complaint CHCF LABWORK LABWORK LABWORK CHCF LABWORK CHCF LAB WORK CHCF LABWORK CHCF LAB WORK CHCF LABWORK LABWORK CHCF LABWORK LABWORK CHCF LAB WORK CHCF LAB WORK CHCF LABWORK Chief Complaint LABWORK CHCF LABWORK LABWORK CHCF LAB WORK CHCF LAB WORK CHCF LABWORK CHCF LABWORK CHCF LAB WORK CHCF LAB WORK CHCF LAB WORK LABWORK CHCF LABWORK Chief Complaint CHCF LAB WOR K CHCF LAB WORK CHCF LABWORK CHCF LABWORK CHCF LAB WORK CHCF LAB WORK CHCF LAB WORK LABWORK CHCF LABWORK LABWORK CHCF LAB WORK CHCF LAB WORK Chief Complaint CHCF LAB WOR K CHCF LABWORK CHCF LABWORK CHCF LAB WORK CHCF LAB WORK CHCF LAB WORK LABWORK CHCF LABWORK LABWORK CHCF LAB WORK CHCF LAB WORK Chief Complaint CHCF LABWORK CHCF LABWORK CHCF LAB WORK CHCF LAB WORK CHCF LAB WORK LABWORK CHCF LABWORK LABWORK CHCF LAB WORK CHCF LAB WORK CHCF LABWORK LABWORK LABWORK Chief Complaint CHCF LAB WOR K CHCF LAB WORK CHCF LAB WORK LABWORK CHCF LABWORK LABWORK CHCF LAB WORK CHCF LAB WORK CHCF LABWORK LABWORK LABWORK LABWORK LABWORK LABWORK Chief Complaint CHCF LAB WOR K LABWORK CHCF LABWORK LABWORK CHCF LAB WORK CHCF LAB WORK CHCF LABWORK LABWORK LABWORK LABWORK LABWORK CHCF LABWORK CHCF LAB WORK LABWORK CHCF LAB WORK CHCF LAB WORK Chief Complaint CHCF LAB WOR K LABWORK CHCF LABWORK LABWORK CHCF LAB WORK CHCF LAB WORK CHCF LABWORK LABWORK LABWORK LABWORK LABWORK CHCF LABWORK CHCF LAB WORK LABWORK CHCF LAB WORK CHCF LAB WORK CHCF LABWORK Chief Complaint CHCF LAB WOR K CHCF LAB WORK CHCF LABWORK LABWORK LABWORK LABWORK LABWORK CHCF LABWORK CHCF LAB WORK LABWORK CHCF LAB WORK CHCF LAB WORK CHCF LABWORK NUSING HOME LAB WORK Chief Complaint CHCF LAB WOR K CHCF LABWORK LABWORK LABWORK LABWORK LABWORK CHCF LABWORK CHCF LAB WORK LABWORK CHCF LAB WORK CHCF LAB WORK CHCF LABWORK NUSING HOME LAB WORK LABWORK Chief Complaint CHCF LAB WOR K CHCF LABWORK LABWORK LABWORK LABWORK LABWORK CHCF LABWORK CHCF LAB WORK LABWORK CHCF LAB WORK CHCF LAB WORK CHCF LABWORK NUSING HOME LAB WORK CHCF LABWORK LABWORK Chief Complaint LABWORK CHCF LAB WORK CHCF LAB WORK CHCF LABWORK NUSING HOME LAB WORK CHCF LABWORK LABWORK CHCF LABWORK CHCF LAB WORK LABWORK LABWORK Chief Complaint NUSING HOME LAB WORK CHCF LABWORK LABWORK CHCF LABWORK CHCF LAB WORK LABWORK CHCF LAB WORK LABWORK LABWORK Chief Complaint NUSING HOME LAB WORK CHCF LABWORK LABWORK CHCF LABWORK CHCF LAB WORK LABWORK CHCF LAB WORK LABWORK CHCF LAB WORK LABWORK Chief Complaint CHCF LABWORK LABWORK CHCF LABWORK CHCF LAB WORK LABWORK CHCF LAB WORK LABWORK CHCF LAB WORK LABWORK LABWORK Chief Complaint CHCF LABWORK LABWORK CHCF LABWORK CHCF LAB WORK LABWORK CHCF LAB WORK LABWORK CHCF LAB WORK LABWORK LABWORK LABWORK Chief Complaint CHCF LABWORK LABWORK CHCF LABWORK CHCF LAB WORK LABWORK CHCF LAB WORK LABWORK CHCF LAB WORK LABWORK LABWORK LABWORK LABWORK Chief Complaint CHCF LABWORK LABWORK CHCF LABWORK CHCF LAB WORK LABWORK CHCF LAB WORK LABWORK CHCF LAB WORK LABWORK LABWORK CHCF LAB WORK LABWORK LABWORK LABWORK Chief Complaint LABWORK CHCF LABWORK CHCF LAB WORK LABWORK CHCF LAB WORK LABWORK CHCF LAB WORK LABWORK LABWORK CHCF LAB WORK LABWORK LABWORK LABWORK LABWORK LABWORK LABWORK LABWORK Chief Complaint CHCF LABWORK CHCF LAB WORK LABWORK CHCF LAB WORK LABWORK CHCF LAB WORK LABWORK LABWORK CHCF LAB WORK LABWORK LABWORK LABWORK LABWORK LABWORK LABWORK LABWORK LABWORK Chief Complaint LABWORK CHCF LAB WORK LABWORK CHCF LAB WORK LABWORK LABWORK CHCF LAB WORK LABWORK LABWORK LABWORK LABWORK LABWORK LABWORK LABWORK LABWORK LABWORK Chief Complaint CHCF LABWORK LABWORK LABWORK LABWORK LABWORK CHCF LABWORK CHCF LAB WORK LABWORK CHCF LAB WORK CHCF LAB WORK CHCF LABWORK NUSING HOME LAB WORK CHCF LABWORK LABWORK CHCF LABWORK CH[facility] LAB WORK Chief Complaint Admit Date [facility] LAB WORK March 13, 2024 5:00am LABWORK March 14, 2024 5 :00am [facility] LAB WORK March 17 5:00am [facility] LAB WORK March 18 5:00am [facility] LAB WORK March 19 4:00am [facility] LAB WORK March 20 5:00am [facility] LAB WORK March 24 5:00am [facility] LAB WORK March 27 5:00am LABWORK March 31, 2024 5:00am [facility] LAB WORK April 04 5:00am LABWORK April 07, 2024 5 :00am [facility] LAB WORK April 10, 2024 5:00am [facility] LAB WORK April 14, 2024 5:00am [facility] LAB WORK April 17 5:00am LABWORK April 21, 2024 5:00am [facility] LAB WORK April 24 4:00am LABWORK April 28, 2024 5:00am [facility] LAB WORK May 01 4:00am [facility] LAB WORK May 05 5:00am [facility] LAB WORK May 08, 2024 5:00am [facility] LAB WORK May 09, 2024 4:00am LABWORK May 12, 2024 5: 00am [facility] LAB WORK May 15, 2024 5:00am [facility] LAB WORK May 19, 2024 4:00am [facility] LAB WORK May 20, 2024 5:00am [facility] LAB WORK May 22, 2024 5:00am LABWORK May 26, 2024 5 :00am [facility] LAB WORK May 29, 2024 5:00am [facility] LAB WORK June 02, 2024 5:00am [facility] LAB WORK June 05, 2024 5:00am LABWORK June 09, 2024 5 :00am [facility] LAB WORK June 12, 2024 5:00am [facility] LAB WORK June 16 5:00am [facility] LAB WORK June 19 5:00am LABWORK June 23, 2024 5:00am [facility] LAB WORK June 26 5:00am [facility] LAB WORK June 30 5:00am Chief Complaint Admit Date LABWORK April 07, 2024 5 :00am [facility] LAB WORK April 10, 2024 5:00am [facility] LAB WORK April 14, 2024 5:00am [facility] LAB WORK April 17 5:00am LABWORK April 21, 2024 5:00am [facility] LAB WORK April 24 4:00am LABWORK April 28, 2024 5:00am [facility] LAB WORK May 01 4:00am [facility] LAB WORK May 05 5:00am [facility] LAB WORK May 08, 2024 5:00am [facility] LAB WORK May 09, 2024 4:00am LABWORK May 12, 2024 5: 00am [facility] LAB WORK May 15, 2024 5:00am [facility] LAB WORK May 19, 2024 4:00am [facility] LAB WORK May 20, 2024 5:00am [facility] LAB WORK May 22, 2024 5:00am LABWORK May 26, 2024 5 :00am [facility] LAB WORK May 29, 2024 5:00am [facility] LAB WORK June 02, 2024 5:00am [facility] LAB WORK June 05, 2024 5:00am LABWORK June 09, 2024 5 :00am [facility] LAB WORK June 12, 2024 5:00am [facility] LAB WORK June 16 5:00am [facility] LAB WORK June 19 5:00am LABWORK June 23, 2024 5:00am [facility] LAB WORK June 26 5:00am [facility] LAB WORK June 30 5:00am [facility] LAB WORK July 03 5:00am [facility] LAB WORK July 07, 2024 4: 00am LABWORK July 11, 2024 5:00 am LABWORK July 14, 2024 5:0 0am [facility] LAB WORK July 17, 2024 4 :00am [facility] LAB WORK July 24, 2024 4 :00am Chief Complaint Admit Date [facility] LAB WORK April 14, 2024 5:00am [facility] LAB WORK April 17 5:00am LABWORK April 21, 2024 5:00am [facility] LAB WORK April 24 4:00am LABWORK April 28, 2024 5:00am [facility] LAB WORK May 01 4:00am [facility] LAB WORK May 05 5:00am [facility] LAB WORK May 08, 2024 5:00am [facility] LAB WORK May 09, 2024 4:00am LABWORK May 12, 2024 5: 00am [facility] LAB WORK May 15, 2024 5:00am [facility] LAB WORK May 19, 2024 4:00am [facility] LAB WORK May 20, 2024 5:00am [facility] LAB WORK May 22, 2024 5:00am LABWORK May 26, 2024 5 :00am [facility] LAB WORK May 29, 2024 5:00am [facility] LAB WORK June 02, 2024 5:00am [facility] LAB WORK June 05, 2024 5:00am LABWORK June 09, 2024 5 :00am [facility] LAB WORK June 12, 2024 5:00am [facility] LAB WORK June 16 5:00am [facility] LAB WORK June 19 5:00am LABWORK June 23, 2024 5:00am [facility] LAB WORK June 26 5:00am [facility] LAB WORK June 30 5:00am [facility] LAB WORK July 03 5:00am [facility] LAB WORK July 07, 2024 4: 00am LABWORK July 11, 2024 5:00 am LABWORK July 14, 2024 5:0 0am [facility] LAB WORK July 17, 2024 4 :00am [facility] LAB WORK July 24, 2024 4 :00am LABWORK July 25, 2024 5:0 0am Chief Complaint Admit Date [facility] LAB WORK April 14, 2024 5:00am [facility] LAB WORK April 17 5:00am LABWORK April 21, 2024 5:00am [facility] LAB WORK April 24 4:00am LABWORK April 28, 2024 5:00am [facility] LAB WORK May 01 4:00am [facility] LAB WORK May 05 5:00am [facility] LAB WORK May 08, 2024 5:00am [facility] LAB WORK May 09, 2024 4:00am LABWORK May 12, 2024 5: 00am [facility] LAB WORK May 15, 2024 5:00am [facility] LAB WORK May 19, 2024 4:00am [facility] LAB WORK May 20, 2024 5:00am [facility] LAB WORK May 22, 2024 5:00am LABWORK May 26, 2024 5 :00am [facility] LAB WORK May 29, 2024 5:00am [facility] LAB WORK June 02, 2024 5:00am [facility] LAB WORK June 05, 2024 5:00am LABWORK June 09, 2024 5 :00am [facility] LAB WORK June 12, 2024 5:00am [facility] LAB WORK June 16 5:00am [facility] LAB WORK June 19 5:00am LABWORK June 23, 2024 5:00am [facility] LAB WORK June 26 5:00am [facility] LAB WORK June 30 5:00am [facility] LAB WORK July 03 5:00am [facility] LAB WORK July 07, 2024 4: 00am LABWORK July 11, 2024 5:00 am LABWORK July 14, 2024 5:0 0am [facility] LAB WORK July 17, 2024 4 :00am [facility] LAB WORK July 21, 2024 5 :00am [facility] LAB WORK July 24, 2024 4 :00am LABWORK July 25, 2024 5:0 0am [facility] LAB WORK July 31, 2024 4 :00am Chief Complaint Admit Date [facility] LAB WORK April 17 5:00am LABWORK April 21, 2024 5:00am [facility] LAB WORK April 24 4:00am LABWORK April 28, 2024 5:00am [facility] LAB WORK May 01 4:00am [facility] LAB WORK May 05 5:00am [facility] LAB WORK May 08, 2024 5:00am [facility] LAB WORK May 09, 2024 4:00am LABWORK May 12, 2024 5: 00am [facility] LAB WORK May 15, 2024 5:00am [facility] LAB WORK May 19, 2024 4:00am [facility] LAB WORK May 20, 2024 5:00am [facility] LAB WORK May 22, 2024 5:00am LABWORK May 26, 2024 5 :00am [facility] LAB WORK May 29, 2024 5:00am [facility] LAB WORK June 02, 2024 5:00am [facility] LAB WORK June 05, 2024 5:00am LABWORK June 09, 2024 5 :00am [facility] LAB WORK June 12, 2024 5:00am [facility] LAB WORK June 16 5:00am [facility] LAB WORK June 19 5:00am LABWORK June 23, 2024 5:00am [facility] LAB WORK June 26 5:00am [facility] LAB WORK June 30 5:00am [facility] LAB WORK July 03 5:00am [facility] LAB WORK July 07, 2024 4: 00am LABWORK July 11, 2024 5:00 am LABWORK July 14, 2024 5:0 0am [facility] LAB WORK July 17, 2024 4 :00am [facility] LAB WORK July 21, 2024 5 :00am [facility] LAB WORK July 24, 2024 4 :00am LABWORK July 25, 2024 5:0 0am [facility] LAB WORK July 28, 2024 5 :00am [facility] LAB WORK July 31, 2024 4 :00am Chief Complaint Admit Date [facility] LAB WORK April 24 4:00am LABWORK April 28, 2024 5:00am [facility] LAB WORK May 01 4:00am [facility] LAB WORK May 05 5:00am [facility] LAB WORK May 08, 2024 5:00am [facility] LAB WORK May 09, 2024 4:00am LABWORK May 12, 2024 5: 00am [facility] LAB WORK May 15, 2024 5:00am [facility] LAB WORK May 19, 2024 4:00am [facility] LAB WORK May 20, 2024 5:00am [facility] LAB WORK May 22, 2024 5:00am LABWORK May 26, 2024 5 :00am [facility] LAB WORK May 29, 2024 5:00am [facility] LAB WORK June 02, 2024 5:00am [facility] LAB WORK June 05, 2024 5:00am LABWORK June 09, 2024 5 :00am [facility] LAB WORK June 12, 2024 5:00am [facility] LAB WORK June 16 5:00am [facility] LAB WORK June 19 5:00am LABWORK June 23, 2024 5:00am [facility] LAB WORK June 26 5:00am [facility] LAB WORK June 30 5:00am [facility] LAB WORK July 03 5:00am [facility] LAB WORK July 07, 2024 4: 00am LABWORK July 11, 2024 5:00 am LABWORK July 14, 2024 5:0 0am [facility] LAB WORK July 17, 2024 4 :00am [facility] LAB WORK July 21, 2024 5 :00am [facility] LAB WORK July 24, 2024 4 :00am LABWORK July 25, 2024 5:0 0am [facility] LAB WORK July 28, 2024 5 :00am [facility] LAB WORK July 31, 2024 4 :00am LABWORK August 04, 2024 5:0 0am Chief Complaint Admit Date [facility] LAB WORK May 15, 2024 5:00am [facility] LAB WORK May 19, 2024 4:00am [facility] LAB WORK May 20, 2024 5:00am [facility] LAB WORK May 22, 2024 5:00am LABWORK May 26, 2024 5 :00am [facility] LAB WORK May 29, 2024 5:00am [facility] LAB WORK June 02, 2024 5:00am [facility] LAB WORK June 05, 2024 5:00am LABWORK June 09, 2024 5 :00am [facility] LAB WORK June 12, 2024 5:00am [facility] LAB WORK June 16 5:00am [facility] LAB WORK June 19 5:00am LABWORK June 23, 2024 5:00am [facility] LAB WORK June 26 5:00am [facility] LAB WORK June 30 5:00am [facility] LAB WORK July 03 5:00am [facility] LAB WORK July 07, 2024 4: 00am LABWORK July 11, 2024 5:00 am LABWORK July 14, 2024 5:0 0am [facility] LAB WORK July 17, 2024 4 :00am [facility] LAB WORK July 21, 2024 5 :00am [facility] LAB WORK July 24, 2024 4 :00am LABWORK July 25, 2024 5:0 0am [facility] LAB WORK July 28, 2024 5 :00am [facility] LAB WORK July 31, 2024 4 :00am LABWORK August 04, 2024 5:0 0am LABWORK August 07, 2024 5:00 am [facility] LAB WORK August 11, 2024 5: 00am [facility] LAB WORK August 14, 2024 5 :00am [facility] LAB WORK August 18, 2024 5 :00am Chief Complaint Admit Date [facility] LAB WORK May 20, 2024 5:00am [facility] LAB WORK May 22, 2024 5:00am LABWORK May 26, 2024 5 :00am [facility] LAB WORK May 29, 2024 5:00am [facility] LAB WORK June 02, 2024 5:00am [facility] LAB WORK June 05, 2024 5:00am LABWORK June 09, 2024 5 :00am [facility] LAB WORK June 12, 2024 5:00am [facility] LAB WORK June 16 5:00am [facility] LAB WORK June 19 5:00am LABWORK June 23, 2024 5:00am [facility] LAB WORK June 26 5:00am [facility] LAB WORK June 30 5:00am [facility] LAB WORK July 03 5:00am [facility] LAB WORK July 07, 2024 4: 00am LABWORK July 11, 2024 5:00 am LABWORK July 14, 2024 5:0 0am [facility] LAB WORK July 17, 2024 4 :00am [facility] July 21, 2024 5 :00am [facility] July 24, 2024 4 :00am LABWORK July 25, 2024 5:0 0am [facility] July 28, 2024 5 :00am [facility] July 31, 2024 4 :00am LABWORK August 04, 2024 5:0 0am LABWORK August 07, 2024 5:00 am [facility] August 11, 2024 5: 00am [facility] August 14, 2024 5 :00am [facility] August 18, 2024 5 :00am LABWORK August 28, 2024 5:0 0am Chief Complaint Admit Date [facility] May 22, 2024 5:00am LABWORK May 26, 2024 5 :00am [facility] May 29, 2024 5:00am [facility] June 02, 2024 5:00am [facility] June 05, 2024 5:00am LABWORK June 09, 2024 5 :00am [facility] June 12, 2024 5:00am [facility] June 16 5:00am [facility] June 19 5:00am LABWORK June 23, 2024 5:00am [facility] June 26 5:00am [facility] June 30 5:00am [facility] July 03 5:00am [facility] July 07, 2024 4: 00am LABWORK July 11, 2024 5:00 am LABWORK July 14, 2024 5:0 0am [facility] July 17, 2024 4 :00am [facility] July 21, 2024 5 :00am [facility] July 24, 2024 4 :00am LABWORK July 25, 2024 5:0 0am [facility] July 28, 2024 5 :00am [facility] July 31, 2024 4 :00am LABWORK August 04, 2024 5:0 0am LABWORK August 07, 2024 5:00 am [facility] August 11, 2024 5: 00am [facility] August 14, 2024 5 :00am [facility] August 18, 2024 5 :00am [facility] August 21, 2024 5 :00am LABWORK August 28, 2024 5:0 0am LABWORK September 01, 2024 5:0 0am Chief Complaint Admit Date [facility] June 05, 2024 5:00am LABWORK June 09, 2024 5 :00am [facility] June 12, 2024 5:00am [facility] June 16 5:00am [facility] June 19 5:00am LABWORK June 23, 2024 5:00am [facility] June 26 5:00am [facility] June 30 5:00am [facility] July 03 5:00am [facility] July 07, 2024 4: 00am LABWORK July 11, 2024 5:00 am LABWORK July 14, 2024 5:0 0am [facility] July 17, 2024 4 :00am [facility] July 21, 2024 5 :00am [facility] July 24, 2024 4 :00am LABWORK July 25, 2024 5:0 0am [facility] July 28, 2024 5 :00am [facility] July 31, 2024 4 :00am LABWORK August 04, 2024 5:0 0am LABWORK August 07, 2024 5:00 am [facility] August 11, 2024 5: 00am [facility] August 14, 2024 5 :00am [facility] August 18, 2024 5 :00am [facility] August 21, 2024 5 :00am [facility] August 25, 2024 4 :00am LABWORK August 28, 2024 5:0 0am LABWORK September 01, 2024 5:0 0am LABWORK September 04, 2024 5:00am Chief Complaint Admit Date [facility] June 05, 2024 5:00am LABWORK June 09, 2024 5 :00am [facility] June 12, 2024 5:00am [facility] June 16 5:00am [facility] June 19 5:00am LABWORK June 23, 2024 5:00am [facility] June 26 5:00am [facility] June 30 5:00am [facility] July 03 5:00am [facility] July 07, 2024 4: 00am LABWORK July 11, 2024 5:00 am LABWORK July 14, 2024 5:0 0am [facility] July 17, 2024 4 :00am [facility] July 21, 2024 5 :00am [facility] July 24, 2024 4 :00am LABWORK July 25, 2024 5:0 0am [facility] July 28, 2024 5 :00am [facility] July 31, 2024 4 :00am LABWORK August 04, 2024 5:0 0am LABWORK August 07, 2024 5:00 am [facility] August 11, 2024 5: 00am [facility] August 14, 2024 5 :00am [facility] August 18, 2024 5 :00am [facility] August 21, 2024 5 :00am [facility] August 25, 2024 4 :00am LABWORK August 28, 2024 5:0 0am LABWORK September 01, 2024 5:0 0am LABWORK September 04, 2024 5:00am LABWORK September 15, 2024 5:00a m Chief Complaint Admit Date [facility] June 19 5:00am LABWORK June 23, 2024 5:00am [facility] June 26 5:00am [facility] June 30 5:00am [facility] July 03 5:00am [facility] July 07, 2024 4: 00am LABWORK July 11, 2024 5:00 am LABWORK July 14, 2024 5:0 0am [facility] July 17, 2024 4 :00am [facility] July 21, 2024 5 :00am [facility] July 24, 2024 4 :00am LABWORK July 25, 2024 5:0 0am [facility] July 28, 2024 5 :00am [facility] July 31, 2024 4 :00am LABWORK August 04, 2024 5:0 0am LABWORK August 07, 2024 5:00 am [facility] August 11, 2024 5: 00am [facility] August 14, 2024 5 :00am [facility] August 18, 2024 5 :00am [facility] August 21, 2024 5 :00am [facility] August 25, 2024 4 :00am LABWORK August 28, 2024 5:0 0am LABWORK September 01, 2024 5:0 0am LABWORK September 04, 2024 5:00am [facility] September 08, 2024 4:00 am [facility] September 11, 2024 5:00 am LABWORK September 15, 2024 5:00a m [facility] September 25, 2024 5:0 0am [facility] September 30, 2024 4:0 0am Chief Complaint Admit Date [facility] June 12, 2024 5:00am [facility] June 16 5:00am [facility] June 19 5:00am LABWORK June 23, 2024 5:00am [facility] June 26 5:00am [facility] June 30 5:00am [facility] July 03 5:00am [facility] July 07, 2024 4: 00am LABWORK July 11, 2024 5:00 am LABWORK July 14, 2024 5:0 0am [facility] July 17, 2024 4 :00am [facility] July 21, 2024 5 :00am [facility] July 24, 2024 4 :00am LABWORK July 25, 2024 5:0 0am [facility] July 28, 2024 5 :00am [facility] July 31, 2024 4 :00am LABWORK August 04, 2024 5:0 0am LABWORK August 07, 2024 5:00 am [facility] August 11, 2024 5: 00am [facility] August 14, 2024 5 :00am [facility] August 18, 2024 5 :00am [facility] August 21, 2024 5 :00am [facility] August 25, 2024 4 :00am LABWORK August 28, 2024 5:0 0am LABWORK September 01, 2024 5:0 0am LABWORK September 04, 2024 5:00am [facility] September 08, 2024 4:00 am LABWORK September 15, 2024 5:00a m Chief Complaint Admit Date [facility] July 07, 2024 4: 00am LABWORK July 11, 2024 5:00 am LABWORK July 14, 2024 5:0 0am [facility] July 17, 2024 4 :00am [facility] July 21, 2024 5 :00am [facility] July 24, 2024 4 :00am LABWORK July 25, 2024 5:0 0am [facility] July 28, 2024 5 :00am [facility] July 31, 2024 4 :00am LABWORK August 04, 2024 5:0 0am LABWORK August 07, 2024 5:00 am [facility] August 11, 2024 5: 00am [facility] August 14, 2024 5 :00am [facility] August 18, 2024 5 :00am [facility] August 21, 2024 5 :00am [facility] August 25, 2024 4 :00am LABWORK August 28, 2024 5:0 0am LABWORK September 01, 2024 5:0 0am LABWORK September 04, 2024 5:00am [facility] September 08, 2024 4:00 am [facility] September 11, 2024 5:00 am LABWORK September 15, 2024 5:00a m [facility] September 18, 2024 5:0 0am [facility] September 22, 2024 5:0 0am [facility] September 25, 2024 5:0 0am [facility] September 30, 2024 4:0 0am [facility] October 02, 2024 5:0 0am [facility] October 09, 2024 5:0 0am Reason for Referral Specialty Diagnoses / Procedures Referred By Contac t Referred To Contact Urology Diagnoses Other fatigue Lanette Munguia DO [address] [place] [address] [facility] [address] [place] [id number] Referral ID Status Reason Start Date Expiration Date V isits Requested Visits Authorized [id number] Open Specialty Services Required 11/01/2021 11/01/2022 1 1 Scheduling Instructions [facility] [place] [address] , [address] [place] [address] Specialty Diagnoses / Procedures Referred By Contac t Referred To Contact IP Unit Diagnoses Heel ulceration, left, with unspecified severity (HCC) Henry Hidalgo, SANIA [address] [place] [address] [facility] [address] [place] [address] Referral ID Status Reason Start Date Expiration Date V isits Requested Visits Authorized [id number] Open Specialty Services Required 12/22/2021 12/22/2022 1 1 Scheduling Instructions [facility] Wound Care/Hyperbaric - [facility] [address] [place] [address] Comments Please use the parking lot located on [address] or [facility]. There are handicap parking spots located in a small lot beside the wound care entrance off of [address]. Please be advised there is a small incline from those handicap spots to our main door. Bring photo ID and insurance card to photocopy. Wear loose fitting clothing (to easily access wound). Bring list of medications (or can be sent by office). Check in at Registration for your first visit. Please call us directly with any questions [phone]. We look forward to helping you heal. Specialty Diagnoses / Procedures Referred By Contdesiree t Referred To Contact Radiology Diagnoses Left flank pain Calculus of ureter Procedures CT abdomen pelvis wo IV contrast Rebecca Buck MD [address] [place] [address] Referral ID Status Reason Start Date Expiration Date V isits Requested Visits Authorized [id number] Pending Review 08/13/2023 08/12/2024 1 1 Referral ID Status Reason Start Date Expiration Date Visits Re quested Visits Authorized [id number] Closed 08/17/2023 09/16/2023 1 1 Additional Source Comments Source Comments (unrecognize d section and content) In the event this informatio n is protected by the Federal Confidentiality of Alcohol and Drug Abuse Patient Records regulations: The Federal rules restrict any use of the information to criminally investigate or prosecute any alcohol or drug abuse patient.[facility] the event this information is protected by the Federal Confidentiality of Alcohol and Drug Abuse Patient Records regulations: The Federal rules restrict any use of the information to criminally investigate or prosecute any alcohol or drug abuse patient.[facility] (unrecognized sect ion and content) No Status Records FoundNo Status Records FoundNo Status Records FoundNo Status Records FoundNo Status Records FoundNo Status Records FoundNo Status Records FoundNo Status Records FoundNo Status Records FoundNo Status Records Found INFORMATION SOURCE (unrecogn ized section and content) DATE CREATED AUTHOR 05/20/2021 [facility] DATE CREATED AUTHOR AUTHOR'S ORGANIZ ATION 06/07/2021 [facility] DATE CREATED AUTHOR AUTHOR'S ORGANIZ ATION 08/02/[address] [facility] DATE CREATED AUTHOR AUTHOR'S ORGANIZ ATION 12/09/2021 [facility] DATE CREATED AUTHOR AUTHOR'S ORGANIZ ATION 12/29/2021 [facility] DATE CREATED AUTHOR AUTHOR'S ORGANIZ ATION 02/04/2022 [facility] DATE CREATED AUTHOR AUTHOR'S ORGANIZ ATION 03/03/2022 [facility] DATE CREATED AUTHOR AUTHOR'S ORGANIZ ATION 09/15/2023 [facility] DATE CREATED AUTHOR AUTHOR'S ORGANIZ ATION 01/12/2025 [facility] Reason for Visit (unrecogniz ed section and content) Reason Comments Missed Appointment Reason Comments Leg Swelling Blood clots Reason Comments Altered Mental Status Pt presents to ED via [facility] for complaint listed. Pt is from [facility]. Pt's LKW was 1000 hours today. Per EMS, pt had a - [place]. Pt denies CP, SOB, and N/V. Pt seems slow to respond, slightly confused at this time. Reason Comments [facility] on left lower leg [...] Buck MD [address] [place] [address] Referral ID Status Reason Start Date Expiration Date Visits Re quested Visits Authorized [id number] Closed 08/17/2023 09/16/2023 1 1 Reason Comments [...] Status: Inactive Member Role Status Dates Dr. Mnoika Staley MD Primary Care Provider Active Start: [...] Status Dates Carlos NOVAK Attending Provider Active Fence Setter Relationship Specialty Start Date End Date Mateus Burris [address] [place] [address] PCP - General Family Practice 11/12/19 Fence Setter Relationship Specialty [place] [address] [place] [address] PCP - General Family Medicine 09/09/20 Fence Setter Relationship Specialty [place] [address] [place] [address] PCP - General Family Medicine 09/09/20 Fence Setter Relationship Specialty [place] [address] [place] [address] PCP - General Family Medicine 09/09/20 Fence Setter Relationship Specialty Start Date End Date Carlos Cavazos MD [address] [place] [address] [address] [place] [address] PCP - General Internal Medicine 02/20/22 Team [...] Monika Staley MD Primary Care Provider Active Fence Setter Relationship Specialty Start Date End Date Carlos Cavazos [address] [place] [address] [address] [place] [phone] PCP - General 12/21/21 Rebecca Buck MD [address] [place] [address] [address] [place] [address] Surgeon Urology 06/25/23 Team Status: Inactive Member [...] Staley MD Primary Care Provider Active Carlos Cavazos OLS Attending Provider, Referring Provi lupillo Active Fence Setter Relationship Specialty Start Date End Date Carlos Cavazos [address] [place] [phone] PCP - General 12/21/21 Rebecca Buck MD [address] [address] Surgeon Urology 06/25/23 Fence Setter Relationship Specialty Start Date End Date Carlos Cavazos [address] [place] [phone] PCP - General 12/21/21 Rebecca Buck MD [address] [address] Surgeon Urology 06/25/23 Fence Setter Relationship Specialty Start Date End Date Carlos Cavazos [address] [place] [phone] PCP - General 12/21/21 Rebecca Buck MD [address] [address] Surgeon Urology 06/25/23 Fence Setter Relationship Specialty Start Date End Date Carlos Cavazos [address] [place] [phone] PCP - General 12/21/21 Rebecca Buck MD [address] [address] Surgeon Urology 06/25/23 Fence Setter Relationship Specialty Start Date End Date Kenny Carlos [address] [place] [phone] PCP - General 12/21/21 Rebecca Buck MD [address] [address] Surgeon Urology 06/25/23 Fence Setter Relationship Specialty Start Date End Date Abdelrahmanviri Carlos [address] [place] [phone] PCP - General 12/21/21 Rebecca Buck MD [address] [address] Surgeon Urology 06/25/23 Team Status: Inactive Member Role Status Dates Dr. Monika Staley MD Primary Care Provider Active Start: March 13, 2024 End: March 13, 2024 [facility] Attending Provider Active Start: March 13, [...] March 17, 2024 End: March 17, 2024 [facility] Attending Provider Active Start: March 17, 2024 End: March 17, 2024 Team Status: Inactive Member Role Status Dates Dr. Monika Staley MD Primary Care Provider Active Start: March 18, 2024 End: March 18, 2024 [facility] Attending Provider Active Start: March 18, [...] March 20, 2024 End: March 20, 2024 [facility] Attending Provider Active Start: March 20, [...] March 27, 2024 End: March 27, 2024 [facility] Attending Provider Active Start: March 27, [...] Care Provider Active Start: July 07, 2024 [facility] Attending Provider Active Start: July 07, [...] Rosanne Hoff RN)192 (Given - Provider: Lisa Ashby, RN) 1024 (Given - Provider: Fabi Subramanian, RN)154 (Given - Provider: Cliff Isidro RN)2100 (Due) [...] Rosanne Hoff RN)2055 (New Bag - Provider: Lisajames Ashby RN)2144 (Stopped - Provider: Lisa Ashby RN) 1026 (New Bag - Provider: Fabi Subramanian RN)1150 (Stopped - Provider: Fabi Subramanian RN)2100 (Due) potassium chloride (KLOR-CON M) extended release tablet 20 mEq 20 mEq, Oral, DAILY, First dose on Sun10/21/21 at 0900, Until Discontinued, Do not crush, chew, or suck on tablet. Tablet may also be broken in half and each half swallowed separately. 0911 (Given - Provider: Rosanne Hoff RN) 0817 (Given - Provider: oRsanne Hoff RN) 1025 (Given - Provider: Fabi [...] Provid er: Isaura Cabrales RN - Comment: MIKE)5 (Due)1215 (Due)2014 (Due) tamsulosin (FLOMAX) capsule 0.4 [...] BE BASED ON THE PRIMARY CLINICAL RECORDS. [facility]. provides no warranty or guarantee of the accuracy or completeness of information in this document.
[2025-01-15 09:12] LABS: Prothrombin Time (Protime)PT. 26.6 SECONDS (11.7-14.9)
== END ==
LOC: OLS.SANC 05:00
PROVIDERS: PCP General Practice
DX: Z79.899 Other long term (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 (principal); Z79.01 Long term (current) use of 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
CPT/HCPCS: 36415; 85610

== ENCOUNTER → 2025-01-19 | Outpatient (REF) | payer MEDICARE, MEDICAID, SELFPAY ==
[2025-01-19 08:21] LABS: Prothrombin Time (Protime)PT. 29.7 SECONDS (11.7-14.9)
== END ==
LOC: OLS.SANC 05:00
PROVIDERS: PCP General Practice; Visit Provider Internal Medicine
DX: Z79.01 Long term (current) use of 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 (principal)
CPT/HCPCS: 36415; 85610

== ENCOUNTER → 2025-01-22 | Outpatient (REF) | payer MEDICARE, MEDICAID, SELFPAY ==
[2025-01-22 08:29] LABS: Prothrombin Time (Protime)PT. 26.6 SECONDS (11.7-14.9)
== END ==
LOC: OLS.SANC 05:00
PROVIDERS: PCP General Practice
DX: Z79.01 Long term (current) use of 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 (principal)
CPT/HCPCS: 36415; 85610

== ENCOUNTER → 2025-01-26 | Outpatient (REF) | payer MEDICARE, MEDICAID, SELFPAY ==
--- OUTSIDE RECORDS SUMMARY | 2025-01-26 04:06 | XMS RPT_ITS | CCD ---
Author Organization [facility] Care Team Providers Care Bench Worker Binding Name Role Phone Mateus Burris Primary Care [...] Unavailable Carlos Cavazos MD Primary Care Provider [phone] PROVIDER, UNKNOWN Primary Care Unavailable PROVIDER, UNKNOWN Referring Unavailable LANETTE MUNGUIA Attending Unavailable SHARON HSIEH Attending Jeanine vailable PROVIDER, UNKNOWN Primary Care Unavailable PROVIDER, UNKNOWN Referring Unavailable PROVIDER, UNKNOWN Referring Unavailable MATEUS BURRIS Primary Care Unavailabl DANTE Barrera Attending Unavailable Kenny, Carlos Primary Care Provider Quinn VALLADARES, Rebecca L Unavailable [phone] Quinn VALLADARES, Rebecca L Unavailable REBECCA BUCK Attending Unavailable REBECCA BUCK Referring Unavailable CARLOS CAVAZOS Primary Care Unavailable REBECCA BUCK Attending Unavailable KENNY, CARLOS Primary Care Unavailable REBECCA BUCK Attending Unavailable KENNY, CARLOS Primary Care Unavailable Luís VALLADARES, Dr. Monika Horner Primary Care Provider [facility] Attending Provider [phone] Carlos Nelson Attending Provider Jonh Pascual MD, [...] Dr. Kvng Crisostomo MD Attending Provider Jeanineva Carols Barnes Attending Provider Jonh Cardoza MD, Dr. Monika Horner Primary Care Provider Dr. Kvng Crisostomo MD Attending Provider Jany Staley MD, Dr. Monika Horner Primary Care Provider Andressa VALLADARES, Dr. Calderon Attending Provider Carlos Calderon Attending Provider Jonh Cardoza MD, Dr. Monika Horner Primary Care Provider Dr. Kvng Crisostomo MD Attending Provider Jany Crisostomo MD, Dr. Calderon Referring Provider Jeanineva ilCarlos Anglin Attending Provider Jonh Cardoza MD, [...] Unavail able Luís, Shiela Primary Care Unavailable [facility], [employer] Attending Unavai lable Luís, Shiela Primary Care Unavailable [place] OLSKaron Attending Unavail able [place] OLS, Karon Referring Unavail able Luís, Shiela [facility] [employer] Attending Unavai lable Luís, Shiela Primary Care Unavailable [facility] [employer] Attending Unavai lable Luís, Shiela Primary Care Unavailable KatsaCarlos Villavicencio Attending Unavailable Luís, Shiela Primary Care Unavailable [place] OLS, Karon Attending Unavail able Luís, Shiela Primary Care Unavailable Crisostomo OLS, Babbaljeet Attending Unavailable Luís, Shiela Primary Care Unavailable [facility] [employer] Attending Unavai lable Luís, Shiela Primary Care [...] Referring Unavailable Crisostomo OLS, Babbaljeet Attending Unavailable Ulís, Shiela Primary Care Unavailable [place] OLS, Carlaaveer [...] Luís, Shiela Primary Care Unavailable [facility] [employer] Attending Unavai lable Luís, Shiela Primary Care Unavailable Luís, Shiela Primary Care Unavailable [place] OLS, Mahaveer Attending Unavail able Katsaros OLS Peter Attending Unavailable Luís, Shiela [...] Luís, Shiela Primary Care Unavailable [facility] [employer] Attending Unavai lable Luís, Shiela Primary Care Unavailable [facility] [employer] Attending Unavai lable Luís, Shiela Primary Care Unavailable Katsaros OLS, Peter Attending Unavailable Luís, Shiela Primary Care Unavailable Katsaros OLS, Peter Attending Unavailable Luís, Shiela Primary Care Unavailable Katsaros OLS, Peter Attending Unavailable Luís, Shiela Primary Care Unavailable Katsaros OLS, Peter Attending Unavailable Luís, Shiela Primary Care Unavailable [facility] [employer] Attending Unavai lable Luís, Shiela Primary Care Unavailable Katsaros OLS, Peter Attending Unavailable Luís, Shiela Primary Care Unavailable Katsaros OLS, Peter Attending Unavailable Luís, Shiela Primary Care Unavailable Crisostomo OLS, Babbaljeet Referring Unavailable Crisostomo OLS, Babbaljeet Attending Unavailable Luís, Shiela Primary Care Unavailable [facility] [employer] Attending Unavai lable Luís, Shiela Primary Care Unavailable Crisostomo OLS, Babbaljeet Referring Unavailable Crisostomo OLS, Babbaljeet Attending Unavailable Luís, Shiela Primary Care Unavailable Katsaros OLS, Peter Attending Unavailable Luís, Shiela Primary Care Unavailable [facility] [employer] Attending Unavai lable Luís, Shiela Primary Care Unavailable Luís, Shiela Primary Care Unavailable Katsaros OLS, Peter Attending Unavailable Crisostomo OLS, Babbaljeet Attending Unavailable Luís, Shiela Primary Care Unavailable Luís, Shiela Primary Care Unavailable Katsaros OLS, Peter Attending Unavailable Crisostomo OLS, Babbaljeet Attending Unavailable Luís, [...] Attending Unavailable Luís, Shiela Primary Care Unavailable [facility], [employer] Attending Unavai lable Luís, Shiela Primary Care Unavailable Katsaros OLS, Peter Attending Unavailable Luís, Shiela Primary Care Unavailable [facility], [employer] Attending Unavai lable Luís, Shiela Primary Care [...] Luís, Shiela Primary Care Unavailable [facility] [employer] Attending Unavai lable Luís, Shiela Primary Care Unavailable [facility] [employer] Attending Unavai lable Luís, Shiela Primary Care [...] Facility (13 sources) Morphine Drug Allergy 5 [facility] Work Phone: (15 sources) Alcohol Propensity to adverse reactions to drug 3 Rash, Hives, Other: See Comments, Other [facility] Work Phone: (1 source) Latex Drug Allergy 0 Rash [facility] (8 sources) Cortisone Drug Allergy 2 [facility] (7 sources) Latex Allergy to substance 0 Rash [facility] Medications Current Medications Medication Drug Class(es) Dates Sig (Normalized) Sig (Original) Acetaminophen (10 sources) Start: 10-21-2021 acetaminophen (TYLENOL) tablet 650 mg Start: 09-14-2021 acetaminophen (TYLENOL) 325 MG tablet 650 mg every 6 hours as needed 0 09/14/2021 Active take 2 tablets by mo [facility] every eight hours acetaminophen (TYLENOL) [...] Start: 11-01-2021 take 1 capsule by mo [facility] once daily tamsulosin (FLOMAX) 0.4 [...] Comment on above: Take 1 capsule by [facility] three times daily. Complete Multi-Vitamin [...] Comment on above: Take 1 tablet by [facility] twice daily. furosemide 40 mg oral [...] Units subcutaneously with meals and at bedtime. Portuguese Panax Ginseng 100 MG CAPS (8 sources) Portuguese Panax Ginseng 100 MG CAPS Quantity: 0 Refills: 0 Ordered: 06-Nov-2019 DO Active Portuguese Panax Ginseng 100 MG Oral Capsule (4 sources) Portuguese Panax Ginseng 100 MG Oral Capsule Refills: 0 Active Portuguese Panax Gin mayuri 100 MG Oral Capsule Refills: 0 DO Active Portuguese Panax Ginseng 100 MG Oral Capsule (2 sources) Portuguese Panax Gin mayuri 100 MG Oral Capsule [...] Comment on above: Take 1 tablet by [facility] three times daily as needed. methylPREDNISolone (1 [...] once daily. Pentoxifylline (1 source) Blood Viscosity [facility] PENTOXIFYLLINE ORAL Take by mouth. 0 Active Comment on above: Take by mouth. petrolatum 0.41 mg/mg topical ointment (1 source) Start : 08-20 white petrolatum (AQUAPHOR) 41 % topical ointment Apply to affected area once daily. 0 08/20/2021 Active Comment on above: Apply to affected ar ea once daily. polyethylene glycol 3350 01015 mg powder for oral solution (1 source) [...] Onset: 10-21-2021 Chronic Other aftercare (4 sources) care home (current) use of anticoagulants; Translations: [long term care administrator (current) use of anticoagulants] Onset: 10-21-2021 Episodic Other aftercare (1 source) Drug therapy finding; Translations: [care home (current) use of anticoagulants] Episodic Other aftercare (2 sources) Other 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 (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; Translations: [Other 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 (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] Onset: 07-11-2024 Episodic Other [...] Chronic Other nervous system disorders (1 source) Obstructive hydrocephalus; Translations: [Obstructive hydrocephalus] Onset: 01-16-2025 Chronic Other nervous system disorders (1 source) [...] Coag (PPP) [Relative time] 2.4 {INR} Normal [facility] Comment on above: Order Comment: 411.2 Performed By: #### L 300.3900 ####[facility] [address] [place], [address] PT Coag (PPP) [Time] 26.6 s High 11.7-14.9 [facility] Comment on above: Order Comment: 411.2 Performed By: #### L 300.3900 ####[facility] [address] [place], [address] Prothrombin Time w/INRon INR Coag (PPP) [Relative time] 2.7 {INR} Normal [facility] Comment on above: Order Comment: 411-2 Performed By: #### L 300.3900 ####[facility] [address] [place], [address] PT Coag (PPP) [Time] 29.7 s High 11.7-14.9 [facility] Comment on above: Order Comment: 411-2 Performed By: #### L 300.3900 ####[facility] [address] [place], [address] Prothrombin Time w/INRon INR Coag (PPP) [Relative time] 2.4 {INR} Normal [facility] Comment on above: Order Comment: 411.1 Performed By: #### L 300.3900 ####[facility] [address] [place], [address] PT Coag (PPP) [Time] 26.6 s High 11.7-14.9 [facility] Comment on above: Order Comment: 411.1 Performed By: #### L 300.3900 ####[facility] [address] [place], [address] KEPPRA (LEVETIRACETAM)on KEPPRA 30.1 ug/mL Normal 10.0-40.0 [facility] Comment on above: Order Comment: 411.1 Result Comment: Perf ormed at: [facility] [id number] Director: Alpesh Vázquez MD, Phone: [phone] Performed By: #### L 300.3900, L3310.0000 ####[facility] [address] [place], [address] Prothrombin Time w/INRon INR Coag (PPP) [Relative time] 2.3 {INR} Normal [facility] Comment on above: Order Comment: 411.1 Performed By: #### L 300.3900, L3310.0000 ####[facility] [address] [place], [address] PT Coag (PPP) [Time] 26.1 s High 11.7-14.9 [facility] Comment on above: Order Comment: 411.1 Performed By: #### L 300.3900, L3310.0000 ####[facility] [address] [place], [address] KEPPRA (LEVETIRACETAM)on KEPPRA 27.6 ug/mL Normal 10.0-40.0 [facility] Comment on above: Order Comment: 411.1 Result Comment: Perf ormed at: [facility] [id number] Director: Alpesh Vázquez MD, Phone: [phone] Performed By: #### L 300.3900, L3310.0000 ####[facility] [address] [place], [address] Prothrombin Time w/INRon INR Coag (PPP) [Relative time] 2.2 {INR} Normal [facility] Comment on above: Order Comment: 411.1 Performed By: #### L 300.3900 ####[facility] [address] [place], [address] PT Coag (PPP) [Time] 24.5 s High 11.7-14.9 [facility] Comment on above: Order Comment: 411.1 Performed By: #### L 300.3900 ####[facility] [address] [place], [address] Prothrombin Time w/INRon INR Coag (PPP) [Relative time] 3.2 {INR} Normal [facility] Comment on above: Order Comment: 411.1 Performed By: #### L 300.3900, L3310.0000 ####[facility] [address] [place], [address] PT Coag (PPP) [Time] 33.1 s High 11.7-14.9 [facility] Comment on above: Order Comment: 411.1 Performed By: #### L 300.3900, L3310.0000 ####[facility] [address] [place], [address] Prothrombin Time w/INRon INR Coag (PPP) [Relative time] 2.7 {INR} Normal [facility] Comment on above: Order Comment: 411.1 Performed By: #### L 300.3900 ####[facility] [address] [place], [address] PT Coag (PPP) [Time] 29.1 s High 11.7-14.9 [facility] Comment on above: Order Comment: 411.1 Performed By: #### L 300.3900 ####[facility] [address] [place], [address] KEPPRA (LEVETIRACETAM)on KEPPRA 31.8 ug/mL Normal 10.0-40.0 [facility] Comment on above: Order Comment: 411-1 Result Comment: Perf ormed at: - [facility] [address] [id number] Director: Alpesh Vázquez MD, Phone: [phone] Performed By: #### L 300.3900, L3310.0000 ####[facility] [address] [place], [address] KEPPRA (LEVETIRACETAM)on KEPPRA 33.3 ug/mL Normal 10.0-40.0 [facility] Comment on above: Order Comment: 411.1 Result Comment: Perf ormed at: BN - [facility] [address] [id number] Director: Alpesh Vázquez MD, Phone: [phone] Performed By: #### L 3310.0000 ####[facility] [address] [place], [address] Prothrombin Time w/INRon INR Coag (PPP) [Relative time] 3.3 {INR} Normal [facility] Comment on above: Order Comment: 411-1 Performed By: #### L 300.3900, L3310.0000 ####[facility] [address] [place], [address] PT Coag (PPP) [Time] 34.0 s High 11.7-14.9 [facility] Comment on above: Order Comment: 411-1 Performed By: #### L 300.3900, L3310.0000 ####[facility] [address] [place], [address] Prothrombin Time w/INRon INR Coag (PPP) [Relative time] 2.8 {INR} Normal [facility] Comment on above: Order Comment: 411.1 Performed By: #### L 300.3900 ####[facility] [address] [place], [address] PT Coag (PPP) [Time] 30.0 s High 11.7-14.9 [facility] Comment on above: Order Comment: 411.1 Performed By: #### L 300.3900 ####[facility] [address] [place], [address] Basic Metabolic Profile (BMP )on 12-24-2024 BUN/CRE 19.2 RATIO Normal 10-20 [facility] Comment on above: Order Comment: 411-1 Performed By: #### L 100.0500, L500.2500 ####[facility] [address] [place], [address] Calcium [Mass/Vol] 8.8 mg/dL Normal 7.6-11.0 [facility] Comment on above: Order Comment: 411-1 Performed By: #### L 100.0500, L500.2500 ####[facility] [address] [place], [address] Chloride [Moles/Vol] 103 mmol/L Normal 98-108 [facility] Comment on above: Order Comment: 411-1 Performed By: #### L 100.0500, L500.2500 ####[facility] [address] [place], [address] CO2 [Moles/Vol] 23.7 mmol/L Normal 21.0-32.0 [facility] Comment on above: Order Comment: 411-1 Performed By: #### L 100.0500, L500.2500 ####[facility] [address] [place], [address] Creatinine [Mass/Vol] 0.82 mg/dL Normal 0.70-1.20 [facility] Comment on above: Order Comment: 411-1 Performed By: #### L 100.0500, L500.2500 ####[facility] [address] [place], [address] GAP 13 Normal 5-15 [facility] Comment on above: Order Comment: 411-1 Performed By: #### L 100.0500, L500.2500 ####[facility] [address] [place], [address] GFR/1.73 sq M.predicted among non-blacks MDRD (S/P/Bld) [Vol rate/Area] 93 mL/min/{1.73_m2} Normal >60 [facility] Comment on above: Order Comment: 411-1 Result Comment: mL/m in/1.73m2 CKD-EPI Creatinine Equation (2020) Performed By: #### L 100.0500, L500.2500 ####[facility] [address] [place], [address] Glucose [Mass/Vol] 88 mg/dL Normal 70-99 [facility] Comment on above: Order Comment: 411-1 Performed By: #### L 100.0500, L500.2500 ####[facility] [address] [place], [address] Potassium [Moles/Vol] 4.2 mmol/L Normal 3.3-5.1 [facility] Comment on above: Order Comment: 411-1 Performed By: #### L 100.0500, L500.2500 ####[facility] [address] [place], [address] Sodium [Moles/Vol] 139 mmol/L Normal 133-145 [facility] Comment on above: Order Comment: 411-1 Performed By: #### L 100.0500, L500.2500 ####[facility] [address] [place], [address] Urea nitrogen [Mass/Vol] 16 mg/dL Normal 4-19 [facility] Comment on above: Order Comment: 411-1 Performed By: #### L 100.0500, L500.2500 ####[facility] [address] [place], [address] CBC-Complete Blood Cnt No Di ffon 12-24-2024 Erythrocyte distribution width (RBC) [Ratio] 15.4 % High 11.6-14.6 [facility] Comment on above: Order Comment: 411-1 Performed By: #### L 100.0500, L500.2500 ####[facility] [address] [place], [address] Hematocrit (Bld) [Volume fraction] 39.8 % Low 40-54 [facility] Comment on above: Order Comment: 411-1 Performed By: #### L 100.0500, L500.2500 ####[facility] [address] [place], [address] Hemoglobin (Bld) [Mass/Vol] 12.4 g/dL Low 13.0-16.5 [facility] Comment on above: Order Comment: 411-1 Performed By: #### L 100.0500, L500.2500 ####[facility] [address] [place], [address] MCH (RBC) [Entitic mass] 26.6 pg Low 27.0-32.0 [facility] Comment on above: Order Comment: 411-1 Performed By: #### L 100.0500, L500.2500 ####[facility] [address] [place], [address] MCHC (RBC) [Mass/Vol] 31.2 g/dL Low 32-36 [facility] Comment on above: Order Comment: 411-1 Performed By: #### L 100.0500, L500.2500 ####[facility] [address] [place], [address] MCV (RBC) [Entitic vol] 85.4 fL Normal 80-94 [facility] Comment on above: Order Comment: 411-1 Performed By: #### L 100.0500, L500.2500 ####[facility] [address] [place], [address] Platelet mean volume (Bld) [Entitic vol] 10.4 fL Normal 6.2-12.0 [facility] Comment on above: Order Comment: 411-1 Performed By: #### L 100.0500, L500.2500 ####[facility] [address] [place], [address] Platelets (Bld) [#/Vol] 290 10*3/uL Normal 150-450 [facility] Comment on above: Order Comment: 411-1 Performed By: #### L 100.0500, L500.2500 ####[facility] [address] [place], [address] RBC (Bld) [#/Vol] 4.66 10*6/uL Normal 4.6-6.2 [facility] Comment on above: Order Comment: 411-1 Performed By: #### L 100.0500, L500.2500 ####[facility] [address] [place], [address] RDW SD 48.1 fl High 35.1-43.9 [facility] Comment on above: Order Comment: 411-1 Performed By: #### L 100.0500, L500.2500 ####[facility] [address] [place], [address] WBC (Bld) [#/Vol] 16.6 10*3/uL High 4.4-11.0 [facility] Comment on above: Order Comment: 411-1 Performed By: #### L 100.0500, L500.2500 ####[facility] [address] [place], [address] Prothrombin Time w/INRon INR Coag (PPP) [Relative time] 2.6 {INR} Normal [facility] Comment on above: Order Comment: 411.1 Performed By: #### L 300.3900 ####[facility] [address] [place], [address] PT Coag (PPP) [Time] 28.8 s High 11.7-14.9 [facility] Comment on above: Order Comment: 411.1 Performed By: #### L 300.3900 ####[facility] [address] [place], [address] Prothrombin Time w/INRon INR Coag (PPP) [Relative time] 2.4 {INR} Normal [facility] Comment on above: Order Comment: 411.1 Performed By: #### L 300.3900 ####[facility] [address] [place], [address] PT Coag (PPP) [Time] 26.7 s High 11.7-14.9 [facility] Comment on above: Order Comment: 411.1 Performed By: #### L 300.3900 ####[facility] [address] [place], [address] Prothrombin Time w/INRon INR Coag (PPP) [Relative time] 2.3 {INR} Normal [facility] Comment on above: Order Comment: 411.1 Performed By: #### L 300.3900 ####[facility] [address] [place], [address] PT Coag (PPP) [Time] 25.7 s High 11.7-14.9 [facility] Comment on above: Order Comment: 411.1 Performed By: #### L 300.3900 ####[facility] [address] [place], [address] Prothrombin Time w/INRon INR Coag (PPP) [Relative time] 2.2 {INR} Normal [facility] Comment on above: Order Comment: 411-1 Performed By: #### L 300.3900 ####[facility] [address] [place], [address] PT Coag (PPP) [Time] 24.7 s High 11.7-14.9 [facility] Comment on above: Order Comment: 411-1 Performed By: #### L 300.3900 ####[facility] [address] [place], [address] Prothrombin Time w/INRon INR Coag (PPP) [Relative time] 2.2 {INR} Normal [facility] Comment on above: Order Comment: 411.1 Performed By: #### L 300.3900 ####[facility] [address] [place], [address] PT Coag (PPP) [Time] 25.0 s High 11.7-14.9 [facility] Comment on above: Order Comment: 411.1 Performed By: #### L 300.3900 ####[facility] [address] [place], [address] Prothrombin Time w/INRon INR Coag (PPP) [Relative time] 2.3 {INR} Normal [facility] Comment on above: Order Comment: 411.1 Performed By: #### L 300.3900 ####[facility] [address] [place], [address] PT Coag (PPP) [Time] 25.9 s High 11.7-14.9 [facility] Comment on above: Order Comment: 411.1 Performed By: #### L 300.3900 ####[facility] [address] [place], [address] Prothrombin Time w/INRon INR Coag (PPP) [Relative time] 2.5 {INR} Normal [facility] Comment on above: Order Comment: 411.1 Performed By: #### L 300.3900 ####[facility] [address] [place], [address] PT Coag (PPP) [Time] 27.3 s High 11.7-14.9 [facility] Comment on above: Order Comment: 411.1 Performed By: #### L 300.3900 ####[facility] [address] [place], [address] Prothrombin Time w/INRon INR Coag (PPP) [Relative time] 2.3 {INR} Normal [facility] Comment on above: Order Comment: 411-1 Performed By: #### L 300.3900 ####[facility] [address] [place], [address] PT Coag (PPP) [Time] 26.0 s High 11.7-14.9 [facility] Comment on above: Order Comment: 411-1 Performed By: #### L 300.3900 ####[facility] [address] [place], [address] Prothrombin Time w/INRon INR Coag (PPP) [Relative time] 3.1 {INR} Normal [facility] Comment on above: Order Comment: 411-1 Performed By: #### L 300.3900 ####[facility] [address] [place], [address] PT Coag (PPP) [Time] 32.8 s High 11.7-14.9 [facility] [facility] Comment on above: Order Comment: 411-1 Performed By: #### L 300.3900 ####[facility] [address] [place], [address] Prothrombin Time w/INRon INR Coag (PPP) [Relative time] 3.3 {INR} Normal [facility] Comment on above: Order Comment: 411.1 Performed By: #### L 300.3900 ####[facility] [address] [place], [address] PT Coag (PPP) [Time] 34.3 s High 11.7-14.9 [facility] Comment on above: Order Comment: 411.1 Performed By: #### L 300.3900 ####[facility] [address] [place], [address] Prothrombin Time w/INRon INR Coag (PPP) [Relative time] 2.8 {INR} Normal [facility] Comment on above: Order Comment: 411.2 Performed By: #### L 300.3900 ####[facility] [address] [place], [address] PT Coag (PPP) [Time] 30.0 s High 11.7-14.9 [facility] Comment on above: Order Comment: 411.2 Performed By: #### L 300.3900 ####[facility] [address] [place], [address] Prothrombin Time w/INRon INR Coag (PPP) [Relative time] 3.0 {INR} Normal [facility] Comment on above: Order Comment: 411.2 Performed By: #### L 300.3900 ####[facility] [address] [place], [address] PT Coag (PPP) [Time] 32.0 s High 11.7-14.9 [facility] Comment on above: Order Comment: 411.2 Performed By: #### L 300.3900 ####[facility] [address] [place], [address] Prothrombin Time w/INRon INR Coag (PPP) [Relative time] 2.9 {INR} Normal [facility] Comment on above: Order Comment: 411.2 Performed By: #### L 300.3900 ####[facility] [address] [place], [address] PT Coag (PPP) [Time] 30.7 s High 11.7-14.9 [facility] Comment on above: Order Comment: 411.2 Performed By: #### L 300.3900 ####[facility] [address] [place], [address] Prothrombin Time w/INRon INR Coag (PPP) [Relative time] 2.2 {INR} Normal [facility] Comment on above: Order Comment: 411.2 Performed By: #### L 300.3900 ####[facility] [address] [place], [address] PT Coag (PPP) [Time] 24.7 s High 11.7-14.9 [facility] Comment on above: Order Comment: 411.2 Performed By: #### L 300.3900 ####[facility] [address] [place], [address] Prothrombin Time w/INRon INR Coag (PPP) [Relative time] 2.6 {INR} Normal [facility] Comment on above: Order Comment: 411.2 Performed By: #### L 300.3900 ####[facility] [address] [place], [address] PT Coag (PPP) [Time] 28.7 s High 11.7-14.9 [facility] Comment on above: Order Comment: 411.2 Performed By: #### L 300.3900 ####[facility] [address] [place], [address] Prothrombin Time w/INRon INR Coag (PPP) [Relative time] 3.1 {INR} Normal [facility] Comment on above: Order Comment: 411.2 Performed By: #### L 300.3900 ####[facility] [address] [place], [address] PT Coag (PPP) [Time] 33.0 s High 11.7-14.9 [facility] Comment on above: Order Comment: 411.2 Performed By: #### L 300.3900 ####[facility] [address] [place], [address] Prothrombin Time w/INRon INR Coag (PPP) [Relative time] 3.0 {INR} Normal [facility] Comment on above: Order Comment: 411-2 Performed By: #### L 300.3900 ####[facility] [address] [place], [address] PT Coag (PPP) [Time] 31.4 s High 11.7-14.9 [facility] Comment on above: Order Comment: 411-2 Performed By: #### L 300.3900 ####[facility] [address] [place], [address] International normalized rat io (INR) calculationOrdered By: Karon Corrales on 10-30-2024 INR Coag (Bld) [Relative time] 2.4 {INR} [facility] Prothrombin Time w/INRon INR Coag (PPP) [Relative time] 2.4 {INR} Normal [facility] Comment on above: Performed By: #### L 300.3900 ####[facility] [address] [place], [address] PT Coag (PPP) [Time] 26.3 s High 11.7-14.9 [facility] Comment on above: Performed By: #### L 300.3900 ####[facility] [address] [place], [address] Prothrombin timeOrdered By: Karon Corrales on 10-30-2024 PT Coag (PPP) [Time] 26.3 s High 11.7-14.9 [facility] International normalized rat io (INR) calculationOrdered By: Karon Corrales on 10-27-2024 INR Coag (Bld) [Relative time] 2.2 {INR} [facility] Prothrombin Time w/INRon INR Coag (PPP) [Relative time] 2.2 {INR} Normal [facility] Comment on above: Order Comment: 411.2 Performed By: #### L 300.3900 ####[facility] [address] [place], [place], [id number] Prothrombin timeOrdered By: Karon Corrales on 10-27-2024 PT Coag (PPP) [Time] 24.5 s High 11.7-14.9 [facility] Comment on above: Order Comment: 411.2 Performed By: #### L 300.3900 ####[facility] [address] [place], [place], [address] International normalized rat io (INR) calculationOrdered By: Karon Corrales on 10-23-2024 INR Coag (Bld) [Relative time] 2.5 {INR} [facility] Prothrombin Time w/INRon INR Coag (PPP) [Relative time] 2.5 {INR} Normal [facility] Comment on above: Order Comment: 411.2 Performed By: #### L 300.3900 ####[facility] [address] [place], [place], [phone] PT Coag (PPP) [Time] 27.9 s High 11.7-14.9 [facility] Comment on above: Order Comment: 411.2 Performed By: #### L 300.3900 ####[facility] [address] [place], [place], [phone] Prothrombin timeOrdered By: Karon Corrales on 10-23-2024 PT Coag (PPP) [Time] 27.9 s High 11.7-14.9 [facility] International normalized rat io (INR) calculationOrdered By: Karon Corrales on 10-20-2024 INR Coag (Bld) [Relative time] 3.1 {INR} [facility] Prothrombin Time w/INRon INR Coag (PPP) [Relative time] 3.1 {INR} Normal [facility] Comment on above: Order Comment: 411.2 Performed By: #### L 300.3900 ####[facility] [address] [place], [place], [phone] PT Coag (PPP) [Time] 32.8 s High 11.7-14.9 [facility] Comment on above: Order Comment: 411.2 Performed By: #### L 300.3900 ####[facility] [address] [place], [place], [phone] Prothrombin timeOrdered By: Karon Corrales on 10-20-2024 PT Coag (PPP) [Time] 32.8 s High 11.7-14.9 [facility] International normalized rat io (INR) calculationOrdered By: Karon Corrales on 10-16-2024 INR Coag (Bld) [Relative time] 2.8 {INR} [facility] Prothrombin Time w/INRon INR Coag (PPP) [Relative time] 2.8 {INR} Normal [facility] Comment on above: Order Comment: 411.2 Performed By: #### L 300.3900 ####[facility] [address] [place], [place], [phone] PT Coag (PPP) [Time] 30.4 s High 11.7-14.9 [facility] Comment on above: Order Comment: 411.2 Performed By: #### L 300.3900 ####[facility] [address] [place], [place], [phone] Prothrombin timeOrdered By: Karon Corrales on 10-16-2024 PT Coag (PPP) [Time] 30.4 s High 11.7-14.9 [facility] International normalized rat io (INR) calculationOrdered By: Carlos Cavazos on 10-13-2024 INR Coag (Bld) [Relative time] 1.9 {INR} [facility] Prothrombin Time w/INRon INR Coag (PPP) [Relative time] 1.9 {INR} Normal [facility] Comment on above: Order Comment: 411-2 Performed By: #### L 300.3900 ####[facility] [address] [place], [address] PT Coag (PPP) [Time] 22.4 s High 11.7-14.9 [facility] Comment on above: Order Comment: 411-2 Performed By: #### L 300.3900 ####[facility] [address] [place], [place], [phone] Prothrombin timeOrdered By: Carlos Cavazos on 10-13-2024 PT Coag (PPP) [Time] 22.4 s High 11.7-14.9 [facility] International normalized rat io (INR) calculationOrdered By: Karon Corrales on 10-09-2024 INR Coag (Bld) [Relative time] 3.0 {INR} [facility] Prothrombin Time w/INRon INR Coag (PPP) [Relative time] 3.0 {INR} Normal [facility] Comment on above: Order Comment: 411.2 Performed By: #### L 300.3900 ####[facility] [address] [place], [place], [address] Prothrombin timeOrdered By: Karon Corrales on 10-09-2024 PT Coag (PPP) [Time] 31.8 s High 11.7-14.9 [facility] Comment on above: Order Comment: 411.2 Performed By: #### L 300.3900 ####[facility] [address] [place], [address] International normalized rat io (INR) calculationOrdered By: Carlos Cavazos on 10-06-2024 INR Coag (Bld) [Relative time] 2.7 {INR} [facility] Prothrombin Time w/INRon INR Coag (PPP) [Relative time] 2.7 {INR} Normal [facility] Comment on above: Order Comment: 411-2 Performed By: #### L 300.3900 ####[facility] [address] [place], [address] PT Coag (PPP) [Time] 29.6 s High 11.7-14.9 [facility] Comment on above: Order Comment: 411-2 Performed By: #### L 300.3900 ####[facility] [address] [place], [address] Prothrombin timeOrdered By: Carlos Cavazos on 10-06-2024 PT Coag (PPP) [Time] 29.6 s High 11.7-14.9 [facility] International normalized rat io (INR) calculationOrdered By: Karon Corrales on 10-02-2024 INR Coag (Bld) [Relative time] 2.3 {INR} [facility] Prothrombin Time w/INRon INR Coag (PPP) [Relative time] 2.3 {INR} Normal [facility] Comment on above: Order Comment: 411.2 Performed By: #### L 300.3900 ####[facility] [address] [place], [place], [phone] PT Coag (PPP) [Time] 26.0 s High 11.7-14.9 [facility] Comment on above: Order Comment: 411.2 Performed By: #### L 300.3900 ####[facility] [address] [place], [address] Prothrombin timeOrdered By: Karon Corrales on 10-02-2024 PT Coag (PPP) [Time] 26.0 s High 11.7-14.9 [facility] International normalized rat io (INR) calculationOrdered By: Karon Corrales on 09-30-2024 INR Coag (Bld) [Relative time] 3.1 {INR} [facility] Prothrombin Time w/INRon INR Coag (PPP) [Relative time] 3.1 {INR} Normal [facility] Comment on above: Order Comment: 411.2 Performed By: #### L 300.3900 ####[facility] [address] [place], [address] PT Coag (PPP) [Time] 32.6 s High 11.7-14.9 [facility] Comment on above: Order Comment: 411.2 Performed By: #### L 300.3900 ####[facility] [address] [place], [place], [phone] Prothrombin timeOrdered By: Karon Corrales on 09-30-2024 PT Coag (PPP) [Time] 32.6 s High 11.7-14.9 [facility] International normalized rat io (INR) calculationOrdered By: Karon Corrales on 09-25-2024 INR Coag (Bld) [Relative time] 2.4 {INR} [facility] Prothrombin Time w/INRon INR Coag (PPP) [Relative time] 2.4 {INR} Normal [facility] Comment on above: Order Comment: 411.2 Performed By: #### L 300.3900 ####[facility] [address] [place], [place], [phone] Prothrombin timeOrdered By: Karon Corrales on 09-25-2024 PT Coag (PPP) [Time] 26.7 s High 11.7-14.9 [facility] Comment on above: Order Comment: 411.2 Performed By: #### L 300.3900 ####[facility] [address] [place], [address] International normalized rat io (INR) calculationOrdered By: Karon Corrales on 05-19-2025 INR Coag (Bld) [Relative time] 2.5 {INR} [facility] Prothrombin Time w/INRon INR Coag (PPP) [Relative time] 2.5 {INR} Normal [facility] Comment on above: Order Comment: 411.2 Performed By: #### L 300.3900 ####[facility] [address] [place], [place], [phone] Prothrombin timeOrdered By: Karon Corrales on 09-22-2024 PT Coag (PPP) [Time] 27.4 s High 11.7-14.9 [facility] Comment on above: Order Comment: 411.2 Performed By: #### L 300.3900 ####[facility] [address] [place], [place], [phone](721) International normalized rat io (INR) calculationOrdered By: Karon Corrales on 09-18-2024 INR Coag (Bld) [Relative time] 2.2 {INR} [facility] Prothrombin Time w/INRon INR Coag (PPP) [Relative time] 2.2 {INR} Normal [facility] Comment on above: Order Comment: 411.2 Performed By: #### L 300.3900 ####[facility] [address] [place], [place], [address] PT Coag (PPP) [Time] 25.1 s High 11.7-14.9 [facility] Comment on above: Order Comment: 411.2 Performed By: #### L 300.3900 ####[facility] [address] [place], [place], [phone] Prothrombin timeOrdered By: Karon Corrales on 09-18-2024 PT Coag (PPP) [Time] 25.1 s High 11.7-14.9 [facility] International normalized rat io (INR) calculationOrdered By: Carlos Cavazos on 09-15-2024 INR Coag (Bld) [Relative time] 2.4 {INR} [facility] Prothrombin Time w/INRon INR Coag (PPP) [Relative time] 2.4 {INR} Normal [facility] Comment on above: Order Comment: 411-2 Performed By: #### L 300.3900 ####[facility] [address] [place], [address] Prothrombin timeOrdered By: Carlos Cavazos on 09-15-2024 PT Coag (PPP) [Time] 26.3 s High 11.7-14.9 [facility] Comment on above: Order Comment: 411-2 Performed By: #### L 300.3900 ####[facility] [address] [place], [place], [phone] International normalized rat io (INR) calculationOrdered By: Karon Corrales on 09-11-2024 INR Coag (Bld) [Relative time] 2.0 {INR} [facility] Prothrombin Time w/INRon INR Coag (PPP) [Relative time] 2.0 {INR} Normal [facility] Comment on above: Order Comment: 411.2 Performed By: #### L 300.3900 ####[facility] [address] [place], [place], [phone] PT Coag (PPP) [Time] 22.9 s High 11.7-14.9 [facility] Comment on above: Order Comment: 411.2 Performed By: #### L 300.3900 ####[facility] [address] [place], [place], [phone] Prothrombin timeOrdered By: Karon Corrales on 09-11-2024 PT Coag (PPP) [Time] 22.9 s High 11.7-14.9 [facility] International normalized rat io (INR) calculationOrdered By: Karon Corrales on 09-08-2024 INR Coag (Bld) [Relative time] 2.0 {INR} [facility] Prothrombin Time w/INRon INR Coag (PPP) [Relative time] 2.0 {INR} Normal [facility] Comment on above: Order Comment: 411.2 Performed By: #### L 300.3900 ####[facility] [address] [place], [place], [phone] PT Coag (PPP) [Time] 22.8 s High 11.7-14.9 [facility] Comment on above: Order Comment: 411.2 Performed By: #### L 300.3900 ####[facility] [address] [place], [place], [phone] Prothrombin timeOrdered By: Karon Corrales on 09-08-2024 PT Coag (PPP) [Time] 22.8 s High 11.7-14.9 [facility] International normalized rat io (INR) calculationOrdered By: Carlos Cavazos on 09-04-2024 INR Coag (Bld) [Relative time] 1.7 {INR} [facility] Prothrombin Time w/INRon INR Coag (PPP) [Relative time] 1.7 {INR} Normal [facility] Comment on above: Order Comment: 411-2 Performed By: #### L 300.3900 ####[facility] [address] [place], [place], [phone] PT Coag (PPP) [Time] 20.8 s High 11.7-14.9 [facility] Comment on above: Order Comment: 411-2 Performed By: #### L 300.3900 ####[facility] [address] [place], [place], [phone] Prothrombin timeOrdered By: Carlos Cavazos on 09-04-2024 PT Coag (PPP) [Time] 20.8 s High 11.7-14.9 [facility] International normalized rat io (INR) calculationOrdered By: Carlos Cavazos on 09-01-2024 INR Coag (Bld) [Relative time] 2.9 {INR} [facility] Prothrombin Time w/INRon INR Coag (PPP) [Relative time] 2.9 {INR} Normal [facility] Comment on above: Order Comment: 411-2 Performed By: #### L 300.3900 ####[facility] [address] [place], [place], [phone] PT Coag (PPP) [Time] 30.7 s High 11.7-14.9 [facility] Comment on above: Order Comment: 411-2 Performed By: #### L 300.3900 ####[facility] [address] [place], [place], [phone] Prothrombin timeOrdered By: Carlos Cavazos on 09-01-2024 PT Coag (PPP) [Time] 30.7 s High 11.7-14.9 [facility] International normalized rat io (INR) calculationOrdered By: Carlos Cavazos on 08-28-2024 INR Coag (Bld) [Relative time] 2.4 {INR} [facility] Prothrombin Time w/INRon INR Coag (PPP) [Relative time] 2.4 {INR} Normal [facility] Comment on above: Order Comment: 411-2 Performed By: #### L 300.3900 ####[facility] [address] [place], [place], [phone] Prothrombin timeOrdered By: Carlos Cavazos on 08-28-2024 PT Coag (PPP) [Time] 26.7 s High 11.7-14.9 [facility] Comment on above: Order Comment: 411-2 Performed By: #### L 300.3900 ####[facility] [address] [place], [place], [phone]([phone] International normalized rat io (INR) calculationOrdered By: Karon Corrales on 08-25-2024 INR Coag (Bld) [Relative time] 1.8 {INR} [facility] Prothrombin Time w/INRon INR Coag (PPP) [Relative time] 1.8 {INR} Normal [facility] Comment on above: Order Comment: 411.2 Performed By: #### L 300.3900 ####[facility] [address] [place], [address] PT Coag (PPP) [Time] 21.6 s High 11.7-14.9 [facility] Comment on above: Order Comment: 411.2 Performed By: #### L 300.3900 ####[facility] [address] [place], [place], [phone] Prothrombin timeOrdered By: Karon Corrales on 08-25-2024 PT Coag (PPP) [Time] 21.6 s High 11.7-14.9 [facility] International normalized rat io (INR) calculationOrdered By: Karon Corrales on 08-21-2024 INR Coag (Bld) [Relative time] 1.7 {INR} [facility] PSA, total screeningOrdered By: Karon Corrales on 08-21-2024 Prostate Specific Antigen Screen 0.52 ng/mL 0.02-4.00 [facility] Comment on above: This test was perfor med using the [employer] tPSA method. Measured values of a patient sample can vary depending on the testing procedure used. PSA values determined on patient samples by different testing procedures cannot be used interchangeably. If there is a change in PSA assays while monitoring therapy, sequential testing should be performed to confirm baseline values. PSA,Total - Annual Screenon 08-21-2024 PSA,TOT SCREEN 0.52 ng/mL Normal 0.02-4.00 [facility] Comment on above: Order [...] confirm baseline values. Performed By: #### L 300.3900, L501.9910 ####[facility] [address] [place], [address] Prothrombin Time w/INRon INR Coag (PPP) [Relative time] 1.7 {INR} Normal [facility] Comment on above: Order Comment: 411.2 Performed By: #### L 300.3900, L501.9910 ####[facility] [address] [place], [address] Prothrombin timeOrdered By: Karon Corrales on 08-21-2024 PT Coag (PPP) [Time] 20.1 s High 11.7-14.9 [facility] Comment on above: Order Comment: 411.2 Performed By: #### L 300.3900, L501.9910 ####[facility] [address] [place], [address] International normalized rat io (INR) calculationOrdered By: Karon Corrales on 08-18-2024 INR Coag (Bld) [Relative time] 3.0 {INR} [facility] Prothrombin Time w/INRon INR Coag (PPP) [Relative time] 3.0 {INR} Normal [facility] Comment on above: Order Comment: 411.2 Performed By: #### L 300.3900 ####[facility] [address] [place], [address] PT Coag (PPP) [Time] 31.4 s High 11.7-14.9 [facility] Comment on above: Order Comment: 411.2 Performed By: #### L 300.3900 ####[facility] [address] [place], [address] Prothrombin timeOrdered By: Karon Corrales on 08-18-2024 PT Coag (PPP) [Time] 31.4 s High 11.7-14.9 [facility] International normalized rat io (INR) calculationOrdered By: Karon Corrales on 08-14-2024 INR Coag (Bld) [Relative time] 2.4 {INR} [facility] Prothrombin Time w/INRon INR Coag (PPP) [Relative time] 2.4 {INR} Normal [facility] Comment on above: Order Comment: 411.2 Performed By: #### L 300.3900 ####[facility] [address] [place], [address] PT Coag (PPP) [Time] 26.6 s High 11.7-14.9 [facility] Comment on above: Order Comment: 411.2 Performed By: #### L 300.3900 ####[facility] [address] [place], [address] Prothrombin timeOrdered By: Karon Corrales on 08-14-2024 PT Coag (PPP) [Time] 26.6 s High 11.7-14.9 [facility] International normalized rat io (INR) calculationOrdered By: Karon Corrales on 08-11-2024 INR Coag (Bld) [Relative time] 3.1 {INR} [facility] Prothrombin Time w/INRon INR Coag (PPP) [Relative time] 3.1 {INR} Normal [facility] Comment on above: Order Comment: 411.2 Performed By: #### L 300.3900 ####[facility] [address] [place], [address] PT Coag (PPP) [Time] 32.4 s High 11.7-14.9 [facility] Comment on above: Order Comment: 411.2 Performed By: #### L 300.3900 ####[facility] [address] [place], [address] Prothrombin timeOrdered By: Karon Corrales on 08-11-2024 PT Coag (PPP) [Time] 32.4 s High 11.7-14.9 [facility] [employer] normalized rat io (INR) calculationOrdered By: Carlos Cavazos on 08-07-2024 INR Coag (Bld) [Relative time] 2.8 {INR} [facility] Prothrombin Time w/INRon INR Coag (PPP) [Relative time] 2.8 {INR} Normal [facility] Comment on above: Order Comment: 411-2 Performed By: #### L 300.3900 ####[facility] [address] [place], [address] PT Coag (PPP) [Time] 30.3 s High 11.7-14.9 [facility] Comment on above: Order Comment: 411-2 Performed By: #### L 300.3900 ####[facility] [address] [place], [address] Prothrombin timeOrdered By: Carlos Cavazos on 08-07-2024 PT Coag (PPP) [Time] 30.3 s High 11.7-14.9 [facility] [employer] normalized rat io (INR) calculationOrdered By: Carlos Cavazos on 08-04-2024 INR Coag (Bld) [Relative time] 1.9 {INR} [facility] Prothrombin Time w/INRon INR Coag (PPP) [Relative time] 1.9 {INR} Normal [facility] Comment on above: Order Comment: 411-2 Performed By: #### L 300.3900 ####[facility] [address] [place], [address] PT Coag (PPP) [Time] 22.1 s High 11.7-14.9 [facility] Comment on above: Order Comment: 411-2 Performed By: #### L 300.3900 ####[facility] [address] [place], [place], [phone] Prothrombin timeOrdered By: Carlos Cavazos on 08-04-2024 PT Coag (PPP) [Time] 22.1 s High 11.7-14.9 [facility] [employer] normalized rat io (INR) calculationOrdered By: Karon Corrales on 07-31-2024 INR Coag (Bld) [Relative time] 3.2 {INR} [facility] Prothrombin Time w/INRon INR Coag (PPP) [Relative time] 3.2 {INR} Normal [facility] Comment on above: Order Comment: 411.2 Performed By: #### L 300.3900 ####[facility] [address] [place], [place], [phone] PT Coag (PPP) [Time] 33.5 s High 11.7-14.9 [facility] Comment on above: Order Comment: 411.2 Performed By: #### L 300.3900 ####[facility] [address] [place], [place], [phone] Prothrombin timeOrdered By: Karon Corrales on 07-31-2024 PT Coag (PPP) [Time] 33.5 s High 11.7-14.9 [facility] [employer] normalized rat io (INR) calculationOrdered By: Karon Corrales on 07-28-2024 INR Coag (Bld) [Relative time] 2.7 {INR} [facility] Prothrombin Time w/INRon INR Coag (PPP) [Relative time] 2.7 {INR} Normal [facility] Comment on above: Order Comment: 411.2 Performed By: #### L 300.3900 ####[facility] [address] [place], [place], [phone] PT Coag (PPP) [Time] 29.6 s High 11.7-14.9 [facility] Comment on above: Order Comment: 411.2 Performed By: #### L 300.3900 ####[facility] [address] [place], [place], [phone] Prothrombin timeOrdered By: Karon Corrales on 07-28-2024 PT Coag (PPP) [Time] 29.6 s High 11.7-14.9 [facility] [employer] normalized rat io (INR) calculationOrdered By: Carlos Cavazos on 07-25-2024 INR Coag (Bld) [Relative time] 3.0 {INR} [facility] Prothrombin Time w/INRon INR Coag (PPP) [Relative time] 3.0 {INR} Normal [facility] Comment on above: Order Comment: 411-2 Performed By: #### L 300.3900 ####[facility] [address] [place], [address] Prothrombin timeOrdered By: Carlos Cavazos on 07-25-2024 PT Coag (PPP) [Time] 32.1 s High 11.7-14.9 [facility] Comment on above: Order Comment: 411-2 Performed By: #### L 300.3900 ####[facility] [address] [place], [place], [phone] International normalized rat io (INR) calculationOrdered By: Karon Corrales on 07-24-2024 INR Coag (Bld) [Relative time] 3.4 {INR} [facility] Prothrombin Time w/INRon INR Coag (PPP) [Relative time] 3.4 {INR} Normal [facility] Comment on above: Order Comment: 411.2 Performed By: #### L 300.3900 ####[facility] [address] [place], [place], [phone] Prothrombin timeOrdered By: Karon Corrales on 07-24-2024 PT Coag (PPP) [Time] 35.4 s High 11.7-14.9 [facility] Comment on above: Order Comment: 411.2 Performed By: #### L 300.3900 ####[facility] [address] [place], [address] International normalized rat io (INR) calculationOrdered By: Karon Corrales on 07-21-2024 INR Coag (Bld) [Relative time] 1.6 {INR} [facility] Prothrombin Time w/INRon INR Coag (PPP) [Relative time] 1.6 {INR} Normal [facility] Comment on above: Order Comment: 411.2 Performed By: #### L 300.3900 ####[facility] [address] [place], [address] PT Coag (PPP) [Time] 19.6 s High 11.7-14.9 [facility] Comment on above: Order Comment: 411.2 Performed By: #### L 300.3900 ####[facility] [address] [place], [address] Prothrombin timeOrdered By: Karon Corrales on 07-21-2024 PT Coag (PPP) [Time] 19.6 s High 11.7-14.9 [facility] normalized rat io (INR) calculationOrdered By: Karon Corrales on 07-17-2024 INR Coag (Bld) [Relative time] 2.9 {INR} [facility] Prothrombin Time w/INRon INR Coag (PPP) [Relative time] 2.9 {INR} Normal [facility] Comment on above: Order Comment: 411.2 Performed By: #### L 300.3900 ####[facility] [address] [place], [address] PT Coag (PPP) [Time] 31.1 s High 11.7-14.9 [facility] Comment on above: Order Comment: 411.2 Performed By: #### L 300.3900 ####[facility] [address] [place], [address] Prothrombin timeOrdered By: Karon Corrales on 07-17-2024 PT Coag (PPP) [Time] 31.1 s High 11.7-14.9 [facility] normalized rat io (INR) calculationOrdered By: Carlos Cavazos on 07-14-2024 INR Coag (Bld) [Relative time] 2.5 {INR} [facility] Prothrombin Time w/INRon INR Coag (PPP) [Relative time] 2.5 {INR} Normal [facility] Comment on above: Order Comment: 411-2 Performed By: #### L 300.3900 ####[facility] [address] [place], [place], [phone]) PT Coag (PPP) [Time] 27.5 s High 11.7-14.9 [facility] Comment on above: Order Comment: 411-2 Performed By: #### L 300.3900 ####[facility] [address] [place], [address] Prothrombin timeOrdered By: Carlos Cavazos on 07-14-2024 PT Coag (PPP) [Time] 27.5 s High 11.7-14.9 [facility] normalized rat io (INR) calculationOrdered By: Carlos Cavazos on 07-11-2024 INR Coag (Bld) [Relative time] 2.5 {INR} [facility] Prothrombin Time w/INRon INR Coag (PPP) [Relative time] 2.5 {INR} Normal [facility] Comment on above: Performed By: #### L 300.3900 ####[facility] [address] [place], [place], [phone]([phone]) PT Coag (PPP) [Time] 27.7 s High 11.7-14.9 [facility] Comment on above: Performed By: #### L 300.3900 ####[facility] [address] [place], [place], [phone] Prothrombin timeOrdered By: Carlos Cavazos on 07-11-2024 PT Coag (PPP) [Time] 27.7 s High 11.7-14.9 [facility] Prothrombin Time w/INRon INR Normal [facility] Comment on above: Order Comment: 411.2 Result Comment: QNS TUBE NOT FILLED Performed By: #### L 300.3900 ####[facility] [address] [place], [address] PROTIME Normal 11.7-14.9 [facility] Comment on above: Order Comment: 411.2 Result Comment: QNS TUBE NOT FILLED Performed By: #### L 300.3900 ####[facility] [address] [place], [address] International normalized rat io (INR) calculationOrdered By: Kvng Crisostomo on 07-07-2024 INR Coag (Bld) [Relative time] 2.5 {INR} [facility] Prothrombin Time w/INRon INR Coag (PPP) [Relative time] 2.5 {INR} Normal [facility] Comment on above: Order Comment: 411.2 Performed By: #### L 300.3900 ####[facility] [address] [place], [address] PT Coag (PPP) [Time] 27.2 s High 11.7-14.9 [facility] Comment on above: Order Comment: 411.2 Performed By: #### L 300.3900 ####[facility] [address] [place], [address] Prothrombin timeOrdered By: Kvng Crisostomo on 07-07-2024 PT Coag (PPP) [Time] 27.2 s High 11.7-14.9 [facility] [employer] normalized rat io (INR) calculationOrdered By: Kvng Crisostomo on 07-03-2024 INR Coag (Bld) [Relative time] 2.5 {INR} [facility] Prothrombin Time w/INRon INR Coag (PPP) [Relative time] 2.5 {INR} Normal [facility] Comment on above: Order Comment: 411.2 Performed By: #### L 300.3900 ####[facility] [address] [place], [address] PT Coag (PPP) [Time] 27.2 s High 11.7-14.9 [facility] Comment on above: Order Comment: 411.2 Performed By: #### L 300.3900 ####[facility] [address] [place], [address] Prothrombin timeOrdered By: Elizabethet Andressa on 07-03-2024 PT Coag (PPP) [Time] 27.2 s High 11.7-14.9 [facility] [employer] normalized rat io (INR) calculationOrdered By: Babsigifredojeet Crisostomo on 06-30-2024 INR Coag (Bld) [Relative time] 2.4 {INR} [facility] Prothrombin Time w/INRon INR Coag (PPP) [Relative time] 2.4 {INR} Normal [facility] Comment on above: Order Comment: 411.2 Performed By: #### L 300.3900 ####[facility] [address] [place], [address] PT Coag (PPP) [Time] 26.8 s High 11.7-14.9 [facility] Comment on above: Order Comment: 411.2 Performed By: #### L 300.3900 ####[facility] [address] [place], [address] Prothrombin timeOrdered By: Babjulyet Andressa on 06-30-2024 PT Coag (PPP) [Time] 26.8 s High 11.7-14.9 [facility] normalized rat io (INR) calculationOrdered By: Babbaljeet Crisostomo on 06-26-2024 INR Coag (Bld) [Relative time] 2.5 {INR} [facility] Prothrombin Time w/INRon INR Coag (PPP) [Relative time] 2.5 {INR} Normal [facility] Comment on above: Order Comment: 411.2 Performed By: #### L 300.3900 ####[facility] [address] [place], [address] PT Coag (PPP) [Time] 27.5 s High 11.7-14.9 [facility] Comment on above: Order Comment: 411.2 Performed By: #### L 300.3900 ####[facility] [address] [place], [address] Prothrombin timeOrdered By: Kvng Crisostomo on 06-26-2024 PT Coag (PPP) [Time] 27.5 s High 11.7-14.9 [facility] normalized rat io (INR) calculationOrdered By: Carlos Cavazos on 06-23-2024 INR Coag (Bld) [Relative time] 2.8 {INR} [facility] Prothrombin Time w/INRon INR Coag (PPP) [Relative time] 2.8 {INR} Normal [facility] Comment on above: Order Comment: 411-2 Performed By: #### L 300.3900 ####[facility] [address] [place], [address] PT Coag (PPP) [Time] 29.7 s High 11.7-14.9 [facility] Comment on above: Order Comment: 411-2 Performed By: #### L 300.3900 ####[facility] [address] [place], [address] Prothrombin timeOrdered By: Carlos Cavazos on 06-23-2024 PT Coag (PPP) [Time] 29.7 s High 11.7-14.9 [facility] normalized rat io (INR) calculationOrdered By: Kvng Crisostomo on 06-19-2024 INR Coag (Bld) [Relative time] 2.6 {INR} [facility] Prothrombin Time w/INRon INR Coag (PPP) [Relative time] 2.6 {INR} Normal [facility] Comment on above: Order Comment: 411.2 Performed By: #### L 300.3900 ####[facility] [address] [place], [address] PT Coag (PPP) [Time] 28.6 s High 11.7-14.9 [facility] Comment on above: Order Comment: 411.2 Performed By: #### L 300.3900 ####[facility] [address] [place], [address] Prothrombin timeOrdered By: Kvng Crisostomo on 06-19-2024 PT Coag (PPP) [Time] 28.6 s High 11.7-14.9 [facility] normalized rat io (INR) calculationOrdered By: Elizabethet Andressa on 06-16-2024 INR Coag (Bld) [Relative time] 2.5 {INR} [facility] Prothrombin Time w/INRon INR Coag (PPP) [Relative time] 2.5 {INR} Normal [facility] Comment on above: Order Comment: 411.2 Performed By: #### L 300.3900 ####[facility] [address] [place], [address] PT Coag (PPP) [Time] 27.3 s High 11.7-14.9 [facility] Comment on above: Order Comment: 411.2 Performed By: #### L 300.3900 ####[facility] [address] [place], [address] Prothrombin timeOrdered By: Kvng Crisostomo on 06-16-2024 PT Coag (PPP) [Time] 27.3 s High 11.7-14.9 [facility] normalized rat io (INR) calculationOrdered By: Babbaljeet Crisostomo on 06-12-2024 INR Coag (Bld) [Relative time] 2.1 {INR} [facility] Prothrombin Time w/INRon INR Coag (PPP) [Relative time] 2.1 {INR} Normal [facility] Comment on above: Order Comment: 411.2 Performed By: #### L 300.3900 ####[facility] [address] [place], [place], [phone](293) PT Coag (PPP) [Time] 24.0 s High 11.7-14.9 [facility] Comment on above: Order Comment: 411.2 Performed By: #### L 300.3900 ####[facility] [address] [place], [address] Prothrombin timeOrdered By: Kvng Crisostomo on 06-12-2024 PT Coag (PPP) [Time] 24.0 s High 11.7-14.9 [facility] normalized rat io (INR) calculationOrdered By: Carlos Cavazos on 06-09-2024 INR Coag (Bld) [Relative time] 1.5 {INR} [facility] Prothrombin Time w/INRon INR Coag (PPP) [Relative time] 1.5 {INR} Normal [facility] Comment on above: Order Comment: 411-2 Performed By: #### L 300.3900 ####[facility] [address] [place], [address] PT Coag (PPP) [Time] 18.0 s High 11.7-14.9 [facility] Comment on above: Order Comment: 411-2 Performed By: #### L 300.3900 ####[facility] [address] [place], [address] Prothrombin timeOrdered By: Carlos Cavazos on 06-09-2024 PT Coag (PPP) [Time] 18.0 s High 11.7-14.9 [facility] normalized rat io (INR) calculationOrdered By: Kvng Crisostomo on 06-05-2024 INR Coag (Bld) [Relative time] 2.8 {INR} [facility] Prothrombin Time w/INRon INR Coag (PPP) [Relative time] 2.8 {INR} Normal [facility] Comment on above: Order Comment: 411.2 Performed By: #### L 300.3900 ####[facility] [address] [place], [address] PT Coag (PPP) [Time] 30.3 s High 11.7-14.9 [facility] Comment on above: Order Comment: 411.2 Performed By: #### L 300.3900 ####[facility] [address] [place], [address] Prothrombin timeOrdered By: Kvng Crisostomo on 06-05-2024 PT Coag (PPP) [Time] 30.3 s High 11.7-14.9 [facility] normalized rat io (INR) calculationOrdered By: Kvng Crisostomo on 06-02-2024 INR Coag (Bld) [Relative time] 2.6 {INR} [facility] Prothrombin Time w/INRon INR Coag (PPP) [Relative time] 2.6 {INR} Normal [facility] Comment on above: Order Comment: 411.2 Performed By: #### L 300.3900 ####[facility] [address] [place], [place], [phone]([phone] PT Coag (PPP) [Time] 28.6 s High 11.7-14.9 [facility] Comment on above: Order Comment: 411.2 Performed By: #### L 300.3900 ####[facility] [address] [place], [address] Prothrombin timeOrdered By: Kvng Crisostomo on 06-02-2024 PT Coag (PPP) [Time] 28.6 s High 11.7-14.9 [facility] normalized rat io (INR) calculationOrdered By: Kvng Crisostomo on 05-29-2024 INR Coag (Bld) [Relative time] 2.5 {INR} [facility] Prothrombin Time w/INRon INR Coag (PPP) [Relative time] 2.5 {INR} Normal [facility] Comment on above: Order Comment: 411.2 Performed By: #### L 300.3900 ####[facility] [address] [place], [address] PT Coag (PPP) [Time] 27.7 s High 11.7-14.9 [facility] Comment on above: Order Comment: 411.2 Performed By: #### L 300.3900 ####[facility] [address] [place], [address] Prothrombin timeOrdered By: Kvng Crisostomo on 05-29-2024 PT Coag (PPP) [Time] 27.7 s High 11.7-14.9 [facility] normalized rat io (INR) calculationOrdered By: Carlos Cavazos on 05-26-2024 INR Coag (Bld) [Relative time] 2.2 {INR} [facility] Prothrombin Time w/INRon INR Coag (PPP) [Relative time] 2.2 {INR} Normal [facility] Comment on above: Order Comment: 411-2 Performed By: #### L 300.3900 ####[facility] [address] [place], [address] PT Coag (PPP) [Time] 24.5 s High 11.7-14.9 [facility] Comment on above: Order Comment: 411-2 Performed By: #### L 300.3900 ####[facility] [address] [place], [address] Prothrombin timeOrdered By: Carlos Cavazos on 05-26-2024 PT Coag (PPP) [Time] 24.5 s High 11.7-14.9 [facility] [employer] normalized rat io (INR) calculationOrdered By: Kvng Crisostomo on 05-22-2024 INR Coag (Bld) [Relative time] 2.8 {INR} [facility] Prothrombin Time w/INRon INR Coag (PPP) [Relative time] 2.8 {INR} Normal [facility] Comment on above: Order Comment: 411.2 Performed By: #### L 300.3900 ####[facility] [address] [place], [address] PT Coag (PPP) [Time] 30.3 s High 11.7-14.9 [facility] Comment on above: Order Comment: 411.2 Performed By: #### L 300.3900 ####[facility] [address] [place], [address] Prothrombin timeOrdered By: Kvng Crisostomo on 05-22-2024 PT Coag (PPP) [Time] 30.3 s High 11.7-14.9 [facility] [employer] normalized rat io (INR) calculationOrdered By: Kvng Crisostomo on 05-20-2024 INR Coag (Bld) [Relative time] 4.0 {INR} High [facility] Comment on above: CRITICAL VALUE CASEY D TO RDEABUPWT99/14/25 [facility] Diana Mattson.RESULTS READ BACK BY SAME. Prothrombin Time w/INRon INR Coag (PPP) [Relative time] 4.0 {INR} Invalid Interpretation Code [facility] Comment on above: Order Comment: 411.2 Result Comment: CRIT ICAL VALUE CALLED [place] [address] [facility] Diana Mattson.RESULTS READ BACK BY SAME. Performed By: #### L 300.3900 ####[facility] [address] [place], [address] PT Coag (PPP) [Time] 39.9 s High 11.7-14.9 [facility] Comment on above: Order Comment: 411.2 Performed By: #### L 300.3900 ####[facility] [address] [place], [place], [phone] Prothrombin timeOrdered By: Kvng Crisostomo on 05-20-2024 PT Coag (PPP) [Time] 39.9 s High 11.7-14.9 [facility] [employer] normalized rat io (INR) calculationOrdered By: Kvng Criosstomo on 05-19-2024 INR Coag (Bld) [Relative time] 3.4 {INR} [facility] Prothrombin Time w/INRon INR Coag (PPP) [Relative time] 3.4 {INR} Normal [facility] Comment on above: Order Comment: 411.2 Performed By: #### L 300.3900 ####[facility] [address] [place], [place], [phone] PT Coag (PPP) [Time] 35.4 s High 11.7-14.9 [facility] Comment on above: Order Comment: 411.2 Performed By: #### L 300.3900 ####[facility] [address] [place], [place], [phone] Prothrombin timeOrdered By: Kvng Crisostomo on 05-19-2024 PT Coag (PPP) [Time] 35.4 s High 11.7-14.9 [facility] [employer] normalized rat io (INR) calculationOrdered By: Kvng Crisostomo on 05-15-2024 INR Coag (Bld) [Relative time] 2.6 {INR} [facility] Prothrombin Time w/INRon INR Coag (PPP) [Relative time] 2.6 {INR} Normal [facility] Comment on above: Order Comment: 411.2 Performed By: #### L 300.3900 ####[facility] [address] [place], [address](980) PT Coag (PPP) [Time] 28.7 s High 11.7-14.9 [facility] Comment on above: Order Comment: 411.2 Performed By: #### L 300.3900 ####[facility] [address] [place], [place], [phone] Prothrombin timeOrdered By: Kvng Crisostomo on 05-15-2024 PT Coag (PPP) [Time] 28.7 s High 11.7-14.9 [facility] normalized rat io (INR) calculationOrdered By: Carlos Cavazos on 05-12-2024 INR Coag (Bld) [Relative time] 2.1 {INR} [facility] Prothrombin Time w/INRon INR Coag (PPP) [Relative time] 2.1 {INR} Normal [facility] Comment on above: Order Comment: 411-2 Performed By: #### L 300.3900 ####[facility] [address] [place], [place], [id number] PT Coag (PPP) [Time] 24.1 s High 11.7-14.9 [facility] Comment on above: Order Comment: 411-2 Performed By: #### L 300.3900 ####[facility] [address] [place], [place], [phone] Prothrombin timeOrdered By: Carlos Cavazos on 05-12-2024 PT Coag (PPP) [Time] 24.1 s High 11.7-14.9 [facility] normalized rat io (INR) calculationOrdered By: Kvng Crisostomo on 05-09-2024 INR Coag (Bld) [Relative time] 3.4 {INR} [facility] Prothrombin Time w/INRon INR Coag (PPP) [Relative time] 3.4 {INR} Normal [facility] Comment on above: Order Comment: 411.2 Performed By: #### L 300.3900 ####[facility] [address] [address] [place], [place], [phone](472 PT Coag (PPP) [Time] 35.4 s High 11.7-14.9 [facility] Comment on above: Order Comment: 411.2 Performed By: #### L 300.3900 ####[facility] [address] [place], [address] Prothrombin timeOrdered By: Kvng Crisostomo on 05-09-2024 PT Coag (PPP) [Time] 35.4 s High 11.7-14.9 [facility] International normalized rat io (INR) calculationOrdered By: Kvng Crisostomo on 05-08-2024 INR Coag (Bld) [Relative time] 4.1 {INR} High [facility] Comment on above: CRITICAL VALUE CASEY D TO [facility]05/08/24 0950 Karen [place].RESULTS READ BACK BY SAME. Prothrombin Time w/INRon INR Coag (PPP) [Relative time] 4.1 {INR} Invalid Interpretation Code [facility] Comment on above: Order Comment: 411.2 Result Comment: CRIT ICAL VALUE CALLED TO [facility]05/08/24 0950 Karen [place].RESULTS READ BACK BY SAME. Performed By: #### L 300.3900 ####[facility] [address] [place], [place], [id number] PT Coag (PPP) [Time] 40.8 s High 11.7-14.9 [facility] Comment on above: Order Comment: 411.2 Performed By: #### L 300.3900 ####[facility] [address] [place], [place], [id number] Prothrombin timeOrdered By: Kvng Crisostomo on 05-08-2024 PT Coag (PPP) [Time] 40.8 s High 11.7-14.9 [facility] [employer] normalized rat io (INR) calculationOrdered By: Kvng Crisostomo on 05-05-2024 INR Coag (Bld) [Relative time] 3.2 {INR} [facility] Prothrombin Time w/INRon INR Coag (PPP) [Relative time] 3.2 {INR} Normal [facility] Comment on above: Order Comment: 411.2 Performed By: #### L 300.3900 ####[facility] [address] [place], [address] PT Coag (PPP) [Time] 32.5 s High 11.7-14.9 [facility] Comment on above: Order Comment: 411.2 Performed By: #### L 300.3900 ####[facility] [address] [place], [address] Prothrombin timeOrdered By: Kvng Crisostomo on 05-05-2024 PT Coag (PPP) [Time] 32.5 s High 11.7-14.9 [facility] [employer] normalized rat io (INR) calculationOrdered By: Kvng Crisostomo on 05-01-2024 INR Coag (Bld) [Relative time] 3.1 {INR} [facility] Prothrombin Time w/INRon INR Coag (PPP) [Relative time] 3.1 {INR} Normal [facility] Comment on above: Order Comment: 411.2 Performed By: #### L 300.3900 ####[facility] [address] [place], [address] PT Coag (PPP) [Time] 31.9 s High 11.7-14.9 [facility] Comment on above: Order Comment: 411.2 Performed By: #### L 300.3900 ####[facility] [address] [place], [address] Prothrombin timeOrdered By: Kvng Crisostomo on 05-01-2024 PT Coag (PPP) [Time] 31.9 s High 11.7-14.9 [facility] [employer] normalized rat io (INR) calculationOrdered By: Carlos Cavazos on 04-28-2024 INR Coag (Bld) [Relative time] 2.6 {INR} [facility] Prothrombin Time w/INRon INR Coag (PPP) [Relative time] 2.6 {INR} Normal [facility] Comment on above: Order Comment: 411-2 Performed By: #### L 300.3900 ####[facility] [address] [place], [address] PT Coag (PPP) [Time] 27.3 s High 11.7-14.9 [facility] Comment on above: Order Comment: 411-2 Performed By: #### L 300.3900 ####[facility] [address] [place], [address] Prothrombin timeOrdered By: Carlos Cavazos on 04-28-2024 PT Coag (PPP) [Time] 27.3 s High 11.7-14.9 [facility] [employer] normalized rat io (INR) calculationOrdered By: Kvng Crisostomo on 04-24-2024 INR Coag (Bld) [Relative time] 3.6 {INR} [facility] Prothrombin Time w/INRon INR Coag (PPP) [Relative time] 3.6 {INR} Normal [facility] Comment on above: Order Comment: 411.2 Performed By: #### L 300.3900 ####[facility] [address] [place], [address] PT Coag (PPP) [Time] 35.6 s High 11.7-14.9 [facility] Comment on above: Order Comment: 411.2 Performed By: #### L 300.3900 ####[facility] [address] [place], [address] Prothrombin timeOrdered By: Kvng Crisostomo on 04-24-2024 PT Coag (PPP) [Time] 35.6 s High 11.7-14.9 [facility] [employer] normalized rat io (INR) calculationOrdered By: Carlos Cavazos on 04-21-2024 INR Coag (Bld) [Relative time] 2.8 {INR} [facility] Prothrombin Time w/INRon INR Coag (PPP) [Relative time] 2.8 {INR} Normal [facility] Comment on above: Order Comment: 411-2 Performed By: #### L 300.3900 ####[facility] [address] [place], [place], [phone] PT Coag (PPP) [Time] 29.4 s High 11.7-14.9 [facility] Comment on above: Order Comment: 411-2 Performed By: #### L 300.3900 ####[facility] [address] [place], [address] Prothrombin timeOrdered By: Carlos Cavazos on 04-21-2024 PT Coag (PPP) [Time] 29.4 s High 11.7-14.9 [facility] [employer] normalized rat io (INR) calculationOrdered By: Kvng Crisostomo on 04-17-2024 INR Coag (Bld) [Relative time] 3.1 {INR} [facility] Prothrombin Time w/INRon INR Coag (PPP) [Relative time] 3.1 {INR} Normal [facility] Comment on above: Order Comment: 411.2 Performed By: #### L 300.3900 ####[facility] [address] [place], [place], [phone] Prothrombin timeOrdered By: Kvng Crisostomo on 04-17-2024 PT Coag (PPP) [Time] 31.3 s High 11.7-14.9 [facility] Comment on above: Order Comment: 411.2 Performed By: #### L 300.3900 ####[facility] [address] [place], [place], [phone] International normalized rat io (INR) calculationOrdered By: Kvng Crisostomo on 04-14-2024 INR Coag (Bld) [Relative time] 3.3 {INR} [facility] Prothrombin Time w/INRon INR Coag (PPP) [Relative time] 3.3 {INR} Normal [facility] Comment on above: Order Comment: 411.2 Performed By: #### L 300.3900 ####[facility] [address] [place], [address] PT Coag (PPP) [Time] 33.2 s High 11.7-14.9 [facility] Comment on above: Order Comment: 411.2 Performed By: #### L 300.3900 ####[facility] [address] [place], [address] Prothrombin timeOrdered By: Kvng Crisostomo on 04-14-2024 PT Coag (PPP) [Time] 33.2 s High 11.7-14.9 [facility] [employer] normalized rat io (INR) calculationOrdered By: Kvng Crisostomo on 04-10-2024 INR Coag (Bld) [Relative time] 2.8 {INR} [facility] Prothrombin Time w/INRon INR Coag (PPP) [Relative time] 2.8 {INR} Normal [facility] Comment on above: Order Comment: 411.2 Performed By: #### L 300.3900 ####[facility] [address] [place], [address] PT Coag (PPP) [Time] 29.2 s High 11.7-14.9 [facility] Comment on above: Order Comment: 411.2 Performed By: #### L 300.3900 ####[facility] [address] [place], [address] Prothrombin timeOrdered By: Kvng Crisostomo on 04-10-2024 PT Coag (PPP) [Time] 29.2 s High 11.7-14.9 [facility] [employer] normalized rat io (INR) calculationOrdered By: Carlos Cavazos on 04-07-2024 INR Coag (Bld) [Relative time] 2.7 {INR} [facility] Prothrombin Time w/INRon INR Coag (PPP) [Relative time] 2.7 {INR} Normal [facility] Comment on above: Order Comment: 411-2 Performed By: #### L 300.3900 ####[facility] [address] [place], [address] PT Coag (PPP) [Time] 28.1 s High 11.7-14.9 [facility] Comment on above: Order Comment: 411-2 Performed By: #### L 300.3900 ####[facility] [address] [place], [address] Prothrombin timeOrdered By: Carlos Cavazos on 04-07-2024 PT Coag (PPP) [Time] 28.1 s High 11.7-14.9 [facility] [employer] normalized rat io (INR) calculationOrdered By: Kvng Crisostomo on 04-04-2024 INR Coag (Bld) [Relative time] 2.8 {INR} [facility] Prothrombin Time w/INRon INR Coag (PPP) [Relative time] 2.8 {INR} Normal [facility] Comment on above: Order Comment: 411.2 Performed By: #### L 300.3900 ####[facility] [address] [place], [address] PT Coag (PPP) [Time] 28.9 s High 11.7-14.9 [facility] Comment on above: Order Comment: 411.2 Performed By: #### L 300.3900 ####[facility] [address] [place], [address] Prothrombin timeOrdered By: Kvng Crisostomo on 04-04-2024 PT Coag (PPP) [Time] 28.9 s High 11.7-14.9 [facility] [employer] normalized rat io (INR) calculationOrdered By: Carlos Cavazos on 03-31-2024 INR Coag (Bld) [Relative time] 2.6 {INR} [facility] Prothrombin Time w/INRon INR Coag (PPP) [Relative time] 2.6 {INR} Normal [facility] Comment on above: Order Comment: 411-2 Performed By: #### L 300.3900 ####[facility] [address] [place], [address] PT Coag (PPP) [Time] 27.3 s High 11.7-14.9 [facility] Comment on above: Order Comment: 411-2 Performed By: #### L 300.3900 ####[facility] [address] [place], [address] Prothrombin timeOrdered By: Carlos Cavazos on 03-31-2024 PT Coag (PPP) [Time] 27.3 s High 11.7-14.9 [facility] [employer] normalized rat io (INR) calculationOrdered By: [employer] on 03-27-2024 INR Coag (Bld) [Relative time] 2.2 {INR} [facility] Prothrombin Time w/INRon INR Coag (PPP) [Relative time] 2.2 {INR} Normal [facility] Comment on above: Order Comment: 411.2 Performed By: #### L 300.3900 ####[facility] [address] [place], [address] PT Coag (PPP) [Time] 24.3 s High 11.7-14.9 [facility] Comment on above: Order Comment: 411.2 Performed By: #### L 300.3900 ####[facility] [address] [place], [address] Prothrombin timeOrdered By: [employer] on 03-27-2024 PT Coag (PPP) [Time] 24.3 s High 11.7-14.9 [facility] [employer] normalized rat io (INR) calculationOrdered By: Kvng Crisostomo on 03-24-2024 INR Coag (Bld) [Relative time] 1.8 {INR} [facility] Prothrombin Time w/INRon INR Coag (PPP) [Relative time] 1.8 {INR} Normal [facility] Comment on above: Order Comment: 411.2 Performed By: #### L 300.3900 ####[facility] [address] [place], [address] PT Coag (PPP) [Time] 20.7 s High 11.7-14.9 [facility] Comment on above: Order Comment: 411.2 Performed By: #### L 300.3900 ####[facility] [address] [place], [address] Prothrombin timeOrdered By: Kvng Crisostomo on 03-24-2024 PT Coag (PPP) [Time] 20.7 s High 11.7-14.9 [facility] [employer] normalized rat io (INR) calculationOrdered By: [employer] on 03-20-2024 INR Coag (Bld) [Relative time] 1.8 {INR} [facility] Prothrombin Time w/INRon INR Coag (PPP) [Relative time] 1.8 {INR} Normal [facility] Comment on above: Order Comment: 411.2 Performed By: #### L 300.3900 ####[facility] [address] [place], [address] PT Coag (PPP) [Time] 20.9 s High 11.7-14.9 [facility] Comment on above: Order Comment: 411.2 Performed By: #### L 300.3900 ####[facility] [address] [place], [address] Prothrombin timeOrdered By: [employer] on 03-20-2024 PT Coag (PPP) [Time] 20.9 s High 11.7-14.9 [facility] [employer] normalized rat io (INR) calculationOrdered By: Babbaljeet Crisostomo on 03-19-2024 INR Coag (Bld) [Relative time] 2.4 {INR} [facility] Prothrombin Time w/INRon INR Coag (PPP) [Relative time] 2.4 {INR} Normal [facility] Comment on above: Order Comment: 411.2 Performed By: #### L 300.3900 ####[facility] [address] [place], [address] PT Coag (PPP) [Time] 26.4 s High 11.7-14.9 [facility] Comment on above: Order Comment: 411.2 Performed By: #### L 300.3900 ####[facility] [address] [place], [address] Prothrombin timeOrdered By: Kvng Crisostomo on 03-19-2024 PT Coag (PPP) [Time] 26.4 s High 11.7-14.9 [facility] [employer] normalized rat io (INR) calculationOrdered By: [employer] on 03-18-2024 INR Coag (Bld) [Relative time] 3.2 {INR} [facility] Prothrombin Time w/INRon INR Coag (PPP) [Relative time] 3.2 {INR} Normal [facility] Comment on above: Order Comment: 411.2 Performed By: #### L 300.3900 ####[facility] [address] [place], [address] PT Coag (PPP) [Time] 32.3 s High 11.7-14.9 [facility] Comment on above: Order Comment: 411.2 Performed By: #### L 300.3900 ####[facility] [address] [place], [address] Prothrombin timeOrdered By: [employer] on 03-18-2024 PT Coag (PPP) [Time] 32.3 s High 11.7-14.9 [facility] [employer] normalized rat io (INR) calculationOrdered By: [employer] on 03-17-2024 INR Coag (Bld) [Relative time] 3.6 {INR} [facility] Prothrombin Time w/INRon INR Coag (PPP) [Relative time] 3.6 {INR} Normal [facility] Comment on above: Order Comment: 411.2 Performed By: #### L 300.3900 ####[facility] [address] [place], [address] PT Coag (PPP) [Time] 35.7 s High 11.7-14.9 [facility] Comment on above: Order Comment: 411.2 Performed By: #### L 300.3900 ####[facility] [address] [place], [address] Prothrombin timeOrdered By: [employer] on 03-17-2024 PT Coag (PPP) [Time] 35.7 s High 11.7-14.9 [facility] [employer] normalized rat io (INR) calculationOrdered By: Carlos Cavazos on 03-14-2024 INR Coag (Bld) [Relative time] 3.5 {INR} [facility] Prothrombin Time w/INRon INR Coag (PPP) [Relative time] 3.5 {INR} Normal [facility] Comment on above: Order Comment: 411-2 Performed By: #### L 300.3900 ####[facility] [address] [place], [address] PT Coag (PPP) [Time] 35.0 s High 11.7-14.9 [facility] Comment on above: Order Comment: 411-2 Performed By: #### L 300.3900 ####[facility] [address] [place], [address] Prothrombin timeOrdered By: Carlos Cavazos on 03-14-2024 PT Coag (PPP) [Time] 35.0 s High 11.7-14.9 [facility] [employer] normalized rat io (INR) calculationOrdered By: [employer] on 03-13-2024 INR Coag (Bld) [Relative time] 3.2 {INR} [facility] Prothrombin Time w/INRon 11- 07-2024 INR Coag (PPP) [Relative time] 3.2 {INR} Normal [facility] Comment on above: Performed By: #### L 300.3900 ####[facility] [address] [place], [address] PT Coag (PPP) [Time] 32.2 s High 11.7-14.9 [facility] Comment on above: Performed By: #### L 300.3900 ####[facility] [address] [place], [address] Prothrombin timeOrdered By: [employer] on 03-13-2024 PT Coag (PPP) [Time] 32.2 s High 11.7-14.9 [facility] Prothrombin Time w/INRon INR Coag (PPP) [Relative time] 2.6 {INR} Normal [facility] Comment on above: Order Comment: 411.2 Performed By: #### L 300.3900 ####[facility] [address] [place], [address] PT Coag (PPP) [Time] 27.7 s High 11.7-14.9 [facility] Comment on above: Order Comment: 411.2 Performed By: #### L 300.3900 ####[facility] [address] [place], [address] Prothrombin Time w/INRon INR Coag (PPP) [Relative time] 3.1 {INR} Normal [facility] Comment on above: Order Comment: 411.2 Performed By: #### L 300.3900 ####[facility] [address] [place], [address] PT Coag (PPP) [Time] 31.4 s High 11.7-14.9 [facility] Comment on above: Order Comment: 411.2 Performed By: #### L 300.3900 ####[facility] [address] [place], [address] Prothrombin Time w/INRon INR Coag (PPP) [Relative time] 3.1 {INR} Normal [facility] Comment on above: Order Comment: 411.2 Performed By: #### L 300.3900 ####[facility] [address] [place], [address] PT Coag (PPP) [Time] 31.8 s High 11.7-14.9 [facility] Comment on above: Order Comment: 411.2 Performed By: #### L 300.3900 ####[facility] [address] [place], [address] Prothrombin Time w/INRon INR Coag (PPP) [Relative time] 3.0 {INR} Normal [facility] Comment on above: Order Comment: 411.2 Performed By: #### L 300.3900 ####[facility] [address] [place], [address] PT Coag (PPP) [Time] 30.6 s High 11.7-14.9 [facility] Comment on above: Order Comment: 411.2 Performed By: #### L 300.3900 ####[facility] [address] [place], [address] Prothrombin Time w/INRon INR Coag (PPP) [Relative time] 2.6 {INR} Normal [facility] Comment on above: Order Comment: 411-2 Performed By: #### L 300.3900 ####[facility] [address] [place], [address] PT Coag (PPP) [Time] 27.5 s High 11.7-14.9 [facility] Comment on above: Order Comment: 411-2 Performed By: #### L 300.3900 ####[facility] [address] [place], [address] Prothrombin Time w/INRon - INR Coag (PPP) [Relative time] 2.3 {INR} Normal [facility] Comment on above: Order Comment: 411.2 Performed By: #### L 300.3900 ####[facility] [address] [place], [address] PT Coag (PPP) [Time] 25.5 s High 11.7-14.9 [facility] Comment on above: Order Comment: 411.2 Performed By: #### L 300.3900 ####[facility] [address] [place], [address] Prothrombin Time w/INRon - INR Coag (PPP) [Relative time] 1.9 {INR} Normal [facility] Comment on above: Order Comment: 411.2 Performed By: #### L 300.3900 ####[facility] [address] [place], [address] PT Coag (PPP) [Time] 21.3 s High 11.7-14.9 [facility] Comment on above: Order Comment: 411.2 Performed By: #### L 300.3900 ####[facility] [address] [place], [address] Prothrombin Time w/INRon INR Coag (PPP) [Relative time] 2.5 {INR} Normal [facility] Comment on above: Order Comment: 411.2 Performed By: #### L 300.3900 ####[facility] [address] [place], [address] PT Coag (PPP) [Time] 26.5 s High 11.7-14.9 [facility] Comment on above: Order Comment: 411.2 Performed By: #### L 300.3900 ####[facility] [address] [place], [address] Prothrombin Time w/INRon INR Coag (PPP) [Relative time] 2.9 {INR} Normal [facility] Comment on above: Order Comment: 411.2 Performed By: #### L 300.3900 ####[facility] [address] [place], [address] PT Coag (PPP) [Time] 30.2 s High 11.7-14.9 [facility] Comment on above: Order Comment: 411.2 Performed By: #### L 300.3900 ####[facility] [address] [place], [address] Prothrombin Time w/INRon INR Coag (PPP) [Relative time] 3.6 {INR} Normal [facility] Comment on above: Order Comment: 411.2 Performed By: #### L 300.3900 ####[facility] [address] [place], [address] PT Coag (PPP) [Time] 35.3 s High 11.7-14.9 [facility] Comment on above: Order Comment: 411.2 Performed By: #### L 300.3900 ####[facility] [address] [place], [address] Prothrombin Time w/INRon INR Coag (PPP) [Relative time] 2.8 {INR} Normal [facility] Comment on above: Order Comment: 411-2 Performed By: #### L 300.3900 ####[facility] [address] [place], [address] PT Coag (PPP) [Time] 29.4 s High 11.7-14.9 [facility] Comment on above: Order Comment: 411-2 Performed By: #### L 300.3900 ####[facility] [address] [place], [address] Prothrombin Time w/INRon INR Coag (PPP) [Relative time] 2.9 {INR} Normal [facility] Comment on above: Order Comment: 411.2 Performed By: #### L 300.3900 ####[facility] [address] [place], [address] PT Coag (PPP) [Time] 29.9 s High 11.7-14.9 [facility] Comment on above: Order Comment: 411.2 Performed By: #### L 300.3900 ####[facility] [address] [place], [address] Prothrombin Time w/INRon INR Coag (PPP) [Relative time] 2.2 {INR} Normal [facility] Comment on above: Order Comment: 411.2 Performed By: #### L 300.3900 ####[facility] [address] [place], [address] PT Coag (PPP) [Time] 24.1 s High 11.7-14.9 [facility] Comment on above: Order Comment: 411.2 Performed By: #### L 300.3900 ####[facility] [address] [place], [address] Prothrombin Time w/INRon INR Coag (PPP) [Relative time] 2.1 {INR} Normal [facility] Comment on above: Order Comment: 411-2 Performed By: #### L 300.3900 ####[facility] [address] [place], [address] PT Coag (PPP) [Time] 23.0 s High 11.7-14.9 [facility] Comment on above: Order Comment: 411-2 Performed By: #### L 300.3900 ####[facility] [address] [place], [address] Prothrombin Time w/INRon INR Coag (PPP) [Relative time] 2.8 {INR} Normal [facility] Comment on above: Performed By: #### L 300.3900 ####[facility] [address] [place], [address] PT Coag (PPP) [Time] 28.9 s High 11.7-14.9 [facility] Comment on above: Performed By: #### L 300.3900 ####[facility] [address] [place], [address] Protime w/INR Fingerstickon 01-29-2024 INR Coag (PPP) [Relative time] 3.2 {INR} Normal [facility] Comment on above: Result Comment: Crit ical Value > 4.0 Performed By: #### L 9200.0000 ####[facility] [address] [place], [address] Protime Coagsen 31.8 SEC High 11.7-14.9 [facility] Comment on above: Performed By: #### L 9200.0000 ####[facility] [address] [place], [place], [address] Office Visiton 09-13-2023 Follow-up visit [id number] Tamie Sifuentes cheng Gonzalez 1950 M Pasha Provider Department Center 09/13/2023 [id number] BUCK [facility] None Family History Problem Relation Age of Onset Heart disease Father Cancer Mother Family Status - Relation Status Age at Father Mother Level of Service:98452 IN OFFICE/OUTPATIENT ESTABLISHED MOD MDM 30 MIN Reason for Visit and Comments: left flank pain [Other] - 8/10 pain when touched Normal 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 Normal [facility] CT ABDOMEN PELVIS WO IV CONT [...] a kidney stone; pt has a hernia [facility] 36on 08-29-2023 36 Lm on daughters vm t o advise them to call the number for the immigration manager to get clarification, and to call back with further questions [address] 08-27-2023 36 Yes, they will need to call the number given to them. [facility] 36 Please advise [address] 08-21-2023 36 Name of caller: Zion holt Contact phone number: [phone] Relationship to Patient: patient Provider: MD Quinn Practice: [facility] Chief Complaint/Reason for Call: Shanthi called [...] to reach out to call Maury Cedeño Digital Media Specialist at [facility] [phone] to get clarifications. TEA did reach back out to [facility] and advised and provider Maury's #. Please advise Best time of day caller can be reached: Any Patient advised that office/PCP has 24-48 business hours to return their call: N/A Normal [facility] Laboratory - CoagulationOrde red By: Carlos Cavazos on 08-21-2023 INR Coag (Bld) [Relative time] 2.7 {INR} [facility] PT Coag (PPP) [Time] 28.9 s 11.7-14.9 [facility] Office Visiton 08-13-2023 Follow-up visit [id number] Tamie Sifuentes cheng Gonzalez 1950 M [place] Provider Department Center 08/13/2023 [id number] BUCK [facility] None Family History Problem Relation Age of Onset Heart disease Father Cancer Mother Family Status - Relation Status Age at Father Mother Level of Service:72079 IN OFFICE/OUTPATIENT NEW MODERATE MDM 45 MINUTES Reason for Visit and Comments: New Patient [542] - Bilateral flank pain, hx of kidney stones Nephrolithiasis [[id number]] Normal 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 Normal [facility] No Panel InformationOrdered By: Carlos Cavazos on 08-03-2023 Levetiracetam (Keppra) Level 32.4 ug/mL 10.0-40.0 [facility] Comment on above: Performed at: [address] [id number] Director: Alpesh Vázquez MD, Phone: [phone] Basophil percentageOrdered B y: Carlos Cavazos on 07-20-2023 Chloride [Moles/Vol] 106 mmol/L 98-107 [facility] Glucose [Mass/Vol] 98 mg/dL 74-106 [facility] Hemoglobin (Bld) [Mass/Vol] 12.5 g/dL 13.0-16.5 [facility] Potassium [Moles/Vol] 4.3 mmol/L 3.5-5.1 [facility] Sodium [Moles/Vol] 135 mmol/L 136-145 [facility] WBC (Bld) [#/Vol] 13.0 10*3/uL 4.4-11.0 [facility] Determination of erythrocyte mean corpuscular volume (MCV)Ordered By: Carlos Cavazos on 07-20-2023 MCV (RBC) [Entitic vol] 86.2 fL 80-94 [facility] Erythrocyte distribution wid th ratioOrdered By: Carlos Cavazos on 07-20-2023 Erythrocyte distribution width (RBC) [Ratio] 15.3 % 11.6-14.6 [facility] Erythrocyte distribution wid th standard deviationOrdered By: Carlos Cavazos on 07-20-2023 Erythrocyte distribution width (RBC) [Entitic vol] 48.1 fL 35.1-43.9 [facility] Hematocrit Auto (Bld) [Volum e fraction]Ordered By: Carlos Cavazos on 07-20-2023 Hematocrit (Bld) [Volume fraction] 39.9 % 40-54 [facility] Laboratory - Chemistry and C hemistry - challengeOrdered By: Carlos Cavazos on 07-20-2023 CO2 [Moles/Vol] 24.0 mmol/L 21.0-32.0 [facility] Urea nitrogen/Creatinine [Mass ratio] 24.6 mg/mg 10-20 [facility] Laboratory - Hematology and Cell countsOrdered By: Carlos Cavazos on 07-20-2023 MCH (RBC) [Entitic mass] 27.0 pg 27.0-32.0 [facility] MCHC (RBC) [Mass/Vol] 31.3 g/dL 32-36 [facility] Platelet mean volume (Bld) [Entitic vol] 10.7 fL 6.2-12.0 [facility] Platelets (Bld) [#/Vol] 260 10*3/uL 150-450 [facility] No Panel InformationOrdered By: Carlos Cavazos on 07-20-2023 Estimated GFR (MDRD) Amer 114 mL/min >60 [facility] Comment on above: GFR Calc Estimated GFR (MDRD) Non-Af Amer 94 mL/min >60 [facility] Comment on above: Non- GFR Calc RBC Auto (Bld) [#/Vol]Ordere d By: Carlos Cavazos on 07-20-2023 RBC (Bld) [#/Vol] 4.63 10*6/uL 4.6-6.2 [facility] Serum or plasma calcium oral urement (mass/volume)Ordered By: Carlos Cavazos on 07-20-2023 Calcium [Mass/Vol] 8.6 mg/dL 8.5-10.1 [facility] Serum or plasma creatinine m easurement (mass/volume)Ordered By: Carlos Cavazos on 07-20-2023 Creatinine [Mass/Vol] 0.85 mg/dL 0.70-1.30 [facility] Comment on above: The validity of the calculated GFR & GFRAA in patients over 70 years has not been determined. Clinical correlation is essential. Serum or plasma urea nitroge n measurement (mass/volume)Ordered By: Carlos Cavazos on 07-20-2023 Urea nitrogen [Mass/Vol] 21 mg/dL 7-18 [facility] Thin prep Papanicolaou smear with manual screeningOrdered By: Carlos Cavazos on 07-20-2023 Thin prep Papanicolaou smear with manual screening 5 5-15 [facility] Basophil percentageOrdered B y: Carlos Cavazos on 07-18-2023 Chloride [Moles/Vol] 102 mmol/L 98-107 [facility] Glucose [Mass/Vol] 96 mg/dL 74-106 [facility] Hemoglobin (Bld) [Mass/Vol] 12.3 g/dL 13.0-16.5 [facility] Potassium [Moles/Vol] 4.2 mmol/L 3.5-5.1 [facility] Sodium [Moles/Vol] 136 mmol/L 136-145 [facility] WBC (Bld) [#/Vol] 14.7 10*3/uL 4.4-11.0 [facility] Determination of erythrocyte mean corpuscular volume (MCV)Ordered By: Carlos Cavazos on 07-18-2023 MCV (RBC) [Entitic vol] 85.4 fL 80-94 [facility] Erythrocyte distribution wid th ratioOrdered By: Carlos Cavazos on 07-18-2023 Erythrocyte distribution width (RBC) [Ratio] 15.1 % 11.6-14.6 [facility] Erythrocyte distribution wid th standard deviationOrdered By: Carlos Cavazos on 07-18-2023 Erythrocyte distribution width (RBC) [Entitic vol] 47.3 fL 35.1-43.9 [facility] Hematocrit Auto (Bld) [Volum e fraction]Ordered By: Carlos Cavazos on 07-18-2023 Hematocrit (Bld) [Volume fraction] 39.3 % 40-54 [facility] Laboratory - Chemistry and C hemistry - challengeOrdered By: Carlos Cavazos on 07-18-2023 CO2 [Moles/Vol] 27.0 mmol/L 21.0-32.0 [facility] Urea nitrogen/Creatinine [Mass ratio] 24.4 mg/mg 10-20 [facility] Laboratory - Hematology and Cell countsOrdered By: Carlos Cavazos on 07-18-2023 MCH (RBC) [Entitic mass] 26.7 pg 27.0-32.0 [facility] MCHC (RBC) [Mass/Vol] 31.3 g/dL 32-36 [facility] Platelet mean volume (Bld) [Entitic vol] 10.3 fL 6.2-12.0 [facility] Platelets (Bld) [#/Vol] 288 10*3/uL 150-450 [facility] No Panel InformationOrdered By: Carlos Cavazos on 07-18-2023 Estimated GFR (MDRD) Amer 113 mL/min >60 [facility] Comment on above: GFR Calc Estimated GFR (MDRD) Non-Af Amer 93 mL/min >60 [facility] Comment on above: Non- GFR Calc RBC Auto (Bld) [#/Vol]Ordere d By: Carlos Cavazos on 07-18-2023 RBC (Bld) [#/Vol] 4.60 10*6/uL 4.6-6.2 [facility] Serum or plasma calcium oral urement (mass/volume)Ordered By: Carlos Cavazos on 07-18-2023 Calcium [Mass/Vol] 8.9 mg/dL 8.5-10.1 [facility] Serum or plasma creatinine m easurement (mass/volume)Ordered By: Carlos Cavazos on 07-18-2023 Creatinine [Mass/Vol] 0.86 mg/dL 0.70-1.30 [facility] Comment on above: The validity of the calculated GFR & GFRAA in patients over 70 years has not been determined. Clinical correlation is essential. Serum or plasma urea nitroge n measurement (mass/volume)Ordered By: Carlos Cavazos on 07-18-2023 Urea nitrogen [Mass/Vol] 21 mg/dL 7-18 [facility] Thin prep Papanicolaou smear with manual screeningOrdered By: Carlos Cavazos on 07-18-2023 Thin prep Papanicolaou smear with manual screening 7 5-15 [facility] Basophil percentageOrdered B y: Carlos Cavazos on 07-17-2023 Basophil percentage 0-5 SEEN /hpf 0-5 [facility] Bilirubin Test strip Ql (U)O rdered By: Carlos Cavazos on 07-17-2023 Bilirubin Ql (U) Negative Negative [facility] Calcium oxalate crystals det ection in urine sediment by light microscopyOrdered By: Carlos Cavazos on 07-17-2023 Calcium oxalate crystals LM Ql (Urine sed) 1+ /hpf [facility] Culture, urineOrdered By: Sharif Crouch on 07-17-2023 Bacteria identified Cx Nom (U) Positive [facility] Ketones Test strip Ql (U)Ord ered By: Carlos Cavazos on 07-17-2023 Ketones Ql (U) Negative Negative [facility] Mucus LM Ql (Urine sed)Order ed By: Carlos Cavazos on 07-17-2023 Mucus Ql (Urine sed) 0 SEEN /hpf [facility] Nitrite Test strip Ql (U)Ord ered By: Carlos Cavazos on 07-17-2023 Nitrite Ql (U) Negative Negative [facility] No Panel InformationOrdered By: Carlos Cavazos on 07-17-2023 Urine RBC 0 SEEN /hpf 0-5 [facility] Protein Test strip Ql (U)Ord ered By: Carlos Cavazos on 07-17-2023 Protein Ql (U) Negative Negative [facility] Squamous epithelial cells de tection in urine sediment by light microscopyOrdered By: Carlos Cavazos on 07-17-2023 Epithelial cells.squamous LM Ql (Urine sed) 0-5 SEEN /hpf 0-5 [facility] Urine blood detectionOrdered By: Carlos Cavazos on 07-17-2023 RBC Ql (U) Negative Negative [facility] Urine clarityOrdered By: Ted Cavazos on 07-17-2023 Clarity (U) Clear Clear [facility] Urine color determinationOrd ered By: Carlos Cavazos on 07-17-2023 Color (U) Yellow Yellow [facility] Urine glucose detectionOrder ed By: Carlos Cavazos on 07-17-2023 Glucose Ql (U) Normal mg/dl Normal [facility] Urine leukocyte esterase det ection by dipstickOrdered By: Carlos Cavazos on 07-17-2023 Leukocyte esterase Test strip Ql (U) 25 /ul Negative [facility] Urine pHOrdered By: Carlos flores on 07-17-2023 pH (U) 6.0 [pH] 5.0 - 8.0 [facility] Urine sediment bacteria coun t by microscopy (number/high power field)Ordered By: Carlos Cavazos on 07-17-2023 Bacteria LM.HPF (Urine sed) [#/Area] 0 /[HPF] None Seen [facility] Urine specific gravity measu rementOrdered By: Carlos Cavazos on 07-17-2023 Specific gravity (U) [Rel density] 1.020 1.002-1.030 [facility] Urine urobilinogen measureme ntOrdered By: Carlos Cavazos on 07-17-2023 Urobilinogen Ql (U) Normal mg/dl Normal [facility] Absolute lymphocyte countOrd ered By: Carlos Cavazos on 07-16-2023 Lymphocytes Auto (Unsp spec) [#/Vol] 6.02 10*3/uL 0.83-4.51 [facility] Automated lymphocyte count a s percentage of total leukocytesOrdered By: Carlos Cavazos on 07-16-2023 Lymphocytes/100 WBC Auto (Unsp spec) 49.1 % 19-41 [facility] Basophil percentageOrdered B y: Carlos Cavazos on 07-16-2023 Basophils/100 WBC (Bld) 0.6 % 0-1 [facility] Chloride [Moles/Vol] 105 mmol/L 98-107 [facility] Eosinophils/100 WBC (Bld) 2.0 % 0-5 [facility] Glucose [Mass/Vol] 93 mg/dL 74-106 [facility] Hemoglobin (Bld) [Mass/Vol] 12.1 g/dL 13.0-16.5 [facility] Monocytes/100 WBC (Bld) 5.3 % 0-10 [facility] Neutrophils (Bld) [#/Vol] 5.2 10*3/uL 2.0-7.7 [facility] Neutrophils/100 WBC (Bld) 42.8 % 47-70 [facility] Potassium [Moles/Vol] 4.3 mmol/L 3.5-5.1 [facility] Sodium [Moles/Vol] 138 mmol/L 136-145 [facility] WBC (Bld) [#/Vol] 12.3 10*3/uL 4.4-11.0 [facility] Blood manual differential co mment interpretation (narrative result)Ordered By: Carlos Cavazos on 07-16-2023 Manual differential comment Shemar (Bld) [Interp] SCANNED [facility] Determination of erythrocyte mean corpuscular volume (MCV)Ordered By: Carlos Cavazos on 07-16-2023 MCV (RBC) [Entitic vol] 86.8 fL 80-94 [facility] Erythrocyte distribution wid th ratioOrdered By: Carlos Cavazos on 07-16-2023 Erythrocyte distribution width (RBC) [Ratio] 15.3 % 11.6-14.6 [facility] Erythrocyte distribution wid th standard deviationOrdered By: Carlos Cavazos on 07-16-2023 Erythrocyte distribution width (RBC) [Entitic vol] 48.9 fL 35.1-43.9 [facility] Hematocrit Auto (Bld) [Volum e fraction]Ordered By: Carlos Cavazos on 07-16-2023 Hematocrit (Bld) [Volume fraction] 38.7 % 40-54 [facility] Immature granulocytes/100 WB C Auto (Bld)Ordered By: Carlos Cavazos on 07-16-2023 Immature granulocytes/100 WBC (Bld) 0.200 % 0.0-0.9 [facility] Comment on above: IG% - Immature Granu locytes (promyelocytes, myelocytes and metamyelocytes) > 1% indicates that a LEFT SHIFT is Present. Laboratory - Chemistry and C hemistry - challengeOrdered By: Carlos Cavazos on 07-16-2023 CO2 [Moles/Vol] 25.0 mmol/L 21.0-32.0 [facility] Urea nitrogen/Creatinine [Mass ratio] 21.0 mg/mg 10-20 [facility] Laboratory - CoagulationOrde red By: Carlos Cavazos on 07-16-2023 INR Coag (Bld) [Relative time] 2.4 {INR} [facility] PT Coag (PPP) [Time] 25.7 s 11.7-14.9 [facility] Laboratory - Hematology and Cell countsOrdered By: Carlos Cavazos on 07-16-2023 MCH (RBC) [Entitic mass] 27.1 pg 27.0-32.0 [facility] MCHC (RBC) [Mass/Vol] 31.3 g/dL 32-36 [facility] Nucleated RBC/100 WBC (Bld) [Ratio] 0 % 0-5 [facility] Platelet mean volume (Bld) [Entitic vol] 10.5 fL 6.2-12.0 [facility] Platelets (Bld) [#/Vol] 289 10*3/uL 150-450 [facility] No Panel InformationOrdered By: Carlos Cavazos on 07-16-2023 Estimated GFR (MDRD) Amer 106 mL/min >60 [facility] Comment on above: GFR Calc Estimated GFR (MDRD) Non-Af Amer 88 mL/min >60 [facility] Comment on above: Non- GFR Calc Reactive Lymphocytes 1+ [facility] RBC Auto (Bld) [#/Vol]Ordere d By: Carlos Cavazos on 07-16-2023 RBC (Bld) [#/Vol] 4.46 10*6/uL 4.6-6.2 [facility] Serum or plasma calcium oral urement (mass/volume)Ordered By: Carlos Cavazos on 07-16-2023 Calcium [Mass/Vol] 9.0 mg/dL 8.5-10.1 [facility] Serum or plasma creatinine m easurement (mass/volume)Ordered By: Carlos Cavazos on 07-16-2023 Creatinine [Mass/Vol] 0.90 mg/dL 0.70-1.30 [facility] Comment on above: The validity of the calculated GFR & GFRAA in patients over 70 years has not been determined. Clinical correlation is essential. Serum or plasma urea nitroge n measurement (mass/volume)Ordered By: Carlos Cavazos on 07-16-2023 Urea nitrogen [Mass/Vol] 19 mg/dL 7-18 [facility] Thin prep Papanicolaou smear with manual screeningOrdered By: Carlos Cavazos on 07-16-2023 Thin prep Papanicolaou smear with manual screening 8 5-15 [facility] Absolute lymphocyte countOrd ered By: Carlos Cavazos on 07-13-2023 Lymphocytes Auto (Unsp spec) [#/Vol] 5.44 10*3/uL 0.83-4.51 [facility] Automated lymphocyte count a s percentage of total leukocytesOrdered By: Carlos Cavazos on 07-13-2023 Lymphocytes/100 WBC Auto (Unsp spec) 47.3 % 19-41 [facility] Basophil percentageOrdered B y: Carlos Cavazos on 07-13-2023 Basophils/100 WBC (Bld) 0.4 % 0-1 [facility] Chloride [Moles/Vol] 107 mmol/L 98-107 [facility] Eosinophils/100 WBC (Bld) 1.7 % 0-5 [facility] Glucose [Mass/Vol] 96 mg/dL 74-106 [facility] Hemoglobin (Bld) [Mass/Vol] 13.5 g/dL 13.0-16.5 [facility] Monocytes/100 WBC (Bld) 4.3 % 0-10 [facility] Neutrophils (Bld) [#/Vol] 5.3 10*3/uL 2.0-7.7 [facility] Neutrophils/100 WBC (Bld) 46.0 % 47-70 [facility] Potassium [Moles/Vol] 4.0 mmol/L 3.5-5.1 [facility] Sodium [Moles/Vol] 139 mmol/L 136-145 [facility] WBC (Bld) [#/Vol] 11.5 10*3/uL 4.4-11.0 [facility] Determination of erythrocyte mean corpuscular volume (MCV)Ordered By: Carlos Cavazos on 07-13-2023 MCV (RBC) [Entitic vol] 86.1 fL 80-94 [facility] Erythrocyte distribution wid th ratioOrdered By: Carlos Cavazos on 07-13-2023 Erythrocyte distribution width (RBC) [Ratio] 15.2 % 11.6-14.6 [facility] Erythrocyte distribution wid th standard deviationOrdered By: Carlos Cavazos on 07-13-2023 Erythrocyte distribution width (RBC) [Entitic vol] 48.0 fL 35.1-43.9 [facility] Hematocrit Auto (Bld) [Volum e fraction]Ordered By: Carlos Cavazos on 07-13-2023 Hematocrit (Bld) [Volume fraction] 42.2 % 40-54 [facility] Immature granulocytes/100 WB C Auto (Bld)Ordered By: Carlos Cavazos on 07-13-2023 Immature granulocytes/100 WBC (Bld) 0.300 % 0.0-0.9 [facility] Comment on above: IG% - Immature Granu locytes (promyelocytes, myelocytes and metamyelocytes) > 1% indicates that a LEFT SHIFT is Present. Laboratory - Chemistry and C hemistry - challengeOrdered By: Carlos Cavazos on 07-13-2023 CO2 [Moles/Vol] 26.0 mmol/L 21.0-32.0 [facility] Urea nitrogen/Creatinine [Mass ratio] 21.8 mg/mg 10-20 [facility] Laboratory - Hematology and Cell countsOrdered By: Carlos Cavazos on 07-13-2023 MCH (RBC) [Entitic mass] 27.6 pg 27.0-32.0 [facility] MCHC (RBC) [Mass/Vol] 32.0 g/dL 32-36 [facility] Nucleated RBC/100 WBC (Bld) [Ratio] 0 % 0-5 [facility] Platelet mean volume (Bld) [Entitic vol] 10.1 fL 6.2-12.0 [facility] Platelets (Bld) [#/Vol] 279 10*3/uL 150-450 [facility] No Panel InformationOrdered By: Carlos Cavazos on 07-13-2023 Estimated GFR (MDRD) Amer 118 mL/min >60 [facility] Comment on above: GFR Calc Estimated GFR (MDRD) Non-Af Amer 98 mL/min >60 [facility] Comment on above: Non- GFR Calc Levetiracetam (Keppra) Level 25.5 ug/mL 10.0-40.0 [facility] Comment on above: Performed at: [facility] [address] [id number] Director: Alpesh Vázquez MD, Phone: [phone] RBC Auto (Bld) [#/Vol]Ordere d By: Carlos Cavazos on 07-13-2023 RBC (Bld) [#/Vol] 4.90 10*6/uL 4.6-6.2 [facility] Serum or plasma calcium oral urement (mass/volume)Ordered By: Carlos Cavazos on 07-13-2023 Calcium [Mass/Vol] 9.1 mg/dL 8.5-10.1 [facility] Serum or plasma creatinine m easurement (mass/volume)Ordered By: Carlos Cavazos on 07-13-2023 Creatinine [Mass/Vol] 0.82 mg/dL 0.70-1.30 [facility] Comment on above: The validity of the calculated GFR & GFRAA in patients over 70 years has not been determined. Clinical correlation is essential. Serum or plasma urea nitroge n measurement (mass/volume)Ordered By: Carlos Cavazos on 07-13-2023 Urea nitrogen [Mass/Vol] 18 mg/dL 7-18 [facility] Thin prep Papanicolaou smear with manual screeningOrdered By: Carlos Cavazos on 07-13-2023 Thin prep Papanicolaou smear with manual screening 6 5-15 [facility] No Panel InformationOrdered By: Carlos Cavazos on 07-12-2023 Valproic Acid (Depakene) Level < 3 ug/mL 50-100 [facility] Laboratory - CoagulationOrde red By: Carlos Cavazos on 07-05-2023 INR Coag (Bld) [Relative time] 2.4 {INR} [facility] PT Coag (PPP) [Time] 26.3 s 11.7-14.9 [facility] Laboratory - CoagulationOrde red By: Carlos Cavazos on 07-02-2023 INR Coag (Bld) [Relative time] 1.5 {INR} [facility] PT Coag (PPP) [Time] 18.5 s 11.7-14.9 [facility] Laboratory - CoagulationOrde red By: Carlos Cavazos on 06-28-2023 INR Coag (Bld) [Relative time] 1.7 {INR} [facility] PT Coag (PPP) [Time] 20.5 s 11.7-14.9 [facility] 36on 06-25-2023 36 [facility] called in stating appt scheduled 07/10/23 [place] has to be made further out, pt being transported by cot. Changed appt to 08/13/[address] [facility] only avail time for transport, first avail with DR Buck at 10:00 AM. [facility] Laboratory - CoagulationOrde red By: Carlos Cavazos on 06-25-2023 INR Coag (Bld) [Relative time] 3.8 {INR} [facility] PT Coag (PPP) [Time] 38.2 s 11.7-14.9 [facility] Laboratory - CoagulationOrde red By: Carlos Cavazos on 06-21-2023 INR Coag (Bld) [Relative time] 3.2 {INR} [facility] PT Coag (PPP) [Time] 32.9 s 11.7-14.9 [facility] No Panel InformationOrdered By: Carlos Cavazos on 06-13-2023 Valproic Acid (Depakene) Level < 3 ug/mL 50-100 [facility] Laboratory - CoagulationOrde red By: Carlos Cavazos on 06-06-2023 PT Coag (PPP) [Time] 30.5 s 11.7-14.9 [facility] Platelet poor plasma interna tional normalized ratio (INR)Ordered By: Carlos Cavazos on 06-06-2023 INR Coag (PPP) [Relative time] 2.9 {INR} [facility] International normalized rat io (INR) calculationOrdered By: Carlos Cavazos on 05-23-2023 INR Coag (PPP) [Relative time] 2.6 {INR} [facility] Laboratory - CoagulationOrde red By: Carlos Cavazos on 05-23-2023 PT Coag (PPP) [Time] 27.7 s 11.7-14.9 [facility] Laboratory - CoagulationOrde red By: Carlos Cavazos on 05-09-2023 PT Coag (PPP) [Time] 24.1 s 11.7-14.9 [facility] Whole blood international no rmalized ratio (INR)Ordered By: Carlos Cavazos on 05-09-2023 INR Coag (Bld) [Relative time] 2.1 {INR} [facility] Laboratory - CoagulationOrde red By: Carlos Cavazos on 04-23-2023 PT Coag (PPP) [Time] 26.4 s 11.7-14.9 [facility] Whole blood international no rmalized ratio (INR)Ordered By: Carlos Cavazos on 04-23-2023 INR Coag (Bld) [Relative time] 2.4 {INR} [facility] INR in Blood by Coagulation assayOrdered By: Carlos Cavazos on 04-09-2023 INR Coag (Bld) [Relative time] 2.1 {INR} [facility] Laboratory - CoagulationOrde red By: Carlos Cavazos on 04-09-2023 PT Coag (PPP) [Time] 23.9 s 11.7-14.9 [facility] INR in Blood by Coagulation assayOrdered By: Carlos Cavazos on 04-02-2023 INR Coag (Bld) [Relative time] 2.2 {INR} [facility] Laboratory - CoagulationOrde red By: Carlos Cavazos on 04-02-2023 PT Coag (PPP) [Time] 24.5 s 11.7-14.9 [facility] INR in Blood by Coagulation assayOrdered By: Carlos Cavazos on 03-26-2023 INR Coag (Bld) [Relative time] 1.7 {INR} [facility] Laboratory - CoagulationOrde red By: Carlos Cavazos on 03-26-2023 PT Coag (PPP) [Time] 19.9 s 11.7-14.9 [facility] INR in Blood by Coagulation assayOrdered By: Carlos Cavazos on 03-22-2023 INR Coag (Bld) [Relative time] 1.3 {INR} [facility] Laboratory - CoagulationOrde red By: Carlos Cavazos on 03-22-2023 PT Coag (PPP) [Time] 16.4 s 11.7-14.9 [facility] INR in Blood by Coagulation assayOrdered By: Carlos Cavazos on 03-08-2023 INR Coag (Bld) [Relative time] 2.0 {INR} [facility] Laboratory - CoagulationOrde red By: Carlos Cavazos on 03-08-2023 PT Coag (PPP) [Time] 22.5 s 11.7-14.9 [facility] Laboratory - CoagulationOrde red By: Carlos Cavazos on 02-22-2023 INR Coag (Bld) [Relative time] 2.2 {INR} [facility] Comment on above: Critical Value > 4.0 Whole blood prothrombin time Ordered By: Carlos Cavazos on 02-22-2023 PT Coag (Bld) [Time] 24.0 s 11.7-14.9 [facility] INR in Blood by Coagulation assayOrdered By: Cliff Bruner on 02-15-2023 INR Coag (Bld) [Relative time] 2.0 {INR} [facility] Laboratory - CoagulationOrde red By: Cliff Bruner on 02-15-2023 PT Coag (PPP) [Time] 22.8 s 11.7-14.9 [facility] INR in Blood by Coagulation assayOrdered By: Carlos Cavazos on 02-08-2023 INR Coag (Bld) [Relative time] 2.1 {INR} [facility] Laboratory - CoagulationOrde red By: Carlos Cavazos on 02-08-2023 PT Coag (PPP) [Time] 23.5 s 11.7-14.9 [facility] INR in Blood by Coagulation assayOrdered By: Carlos Cavazos on 01-31-2023 INR Coag (Bld) [Relative time] 2.0 {INR} [facility] Laboratory - CoagulationOrde red By: Carlos Cavazos on 01-31-2023 PT Coag (PPP) [Time] 22.4 s 11.7-14.9 [facility] Laboratory - CoagulationOrde red By: Carlos Cavazos on 01-29-2023 INR Coag (Bld) [Relative time] 1.8 {INR} [facility] Comment on above: Critical Value > 4.0 Whole blood prothrombin time Ordered By: Carlos Cavazos on 01-29-2023 PT Coag (Bld) [Time] 19.9 s 11.7-14.9 [facility] INR in Blood by Coagulation assayOrdered By: Carlos Cavazos on 01-26-2023 INR Coag (Bld) [Relative time] 1.5 {INR} [facility] Laboratory - CoagulationOrde red By: Carlos Cavazos on 01-26-2023 PT Coag (PPP) [Time] 18.3 s 11.7-14.9 [facility] INR in Blood by Coagulation assayOrdered By: Carlos Cavazos on 01-24-2023 INR Coag (Bld) [Relative time] 1.3 {INR} [facility] Laboratory - CoagulationOrde red By: Carlos Cavazos on 01-24-2023 PT Coag (PPP) [Time] 16.2 s 11.7-14.9 [facility] Basophil percentageOrdered B y: Carlos Cavazos on 01-22-2023 Basophil percentage 0 SEEN /hpf 0-5 [facility] Bilirubin Test strip Ql (U)O rdered By: Carlos Cavazos on 01-22-2023 Bilirubin Ql (U) Negative Negative [facility] Calcium oxalate crystals det ection in urine sediment by light microscopyOrdered By: Carlos Cavazos on 01-22-2023 Calcium oxalate crystals LM Ql (Urine sed) 1+ /hpf [facility] Culture, urineOrdered By: Sharif Crouch on 01-22-2023 Bacteria identified Cx Nom (U) Positive [facility] Ketones Test strip Ql (U)Ord ered By: Carlos Cavazos on 01-22-2023 Ketones Ql (U) Negative Negative [facility] Mucus LM Ql (Urine sed)Order ed By: Carlos Cavazos on 01-22-2023 Mucus Ql (Urine sed) 1+ /hpf [facility] Nitrite Test strip Ql (U)Ord ered By: Carlos Cavazos on 01-22-2023 Nitrite Ql (U) Negative Negative [facility] Protein Test strip Ql (U)Ord ered By: Carlos Cavazos on 01-22-2023 Protein Ql (U) Negative Negative [facility] Squamous epithelial cells de tection in urine sediment by light microscopyOrdered By: Carlos Cavazos on 01-22-2023 Epithelial cells.squamous LM Ql (Urine sed) 0 SEEN /hpf 0-5 [facility] Urine blood detectionOrdered By: Carlos Cavazos on 01-22-2023 RBC Ql (U) Negative Negative [facility] RBC Ql (U) 0 SEEN /hpf 0-5 [facility] Urine clarityOrdered By: Ted Cavazos on 01-22-2023 Clarity (U) Sl. Cloudy Clear [facility] Urine color determinationOrd ered By: Carlos Cavazos on 01-22-2023 Color (U) Yellow Yellow [facility] Urine glucose detectionOrder ed By: Carlos Cavazos on 01-22-2023 Glucose Ql (U) Normal mg/dl Normal [facility] Urine leukocyte esterase det ection by dipstickOrdered By: Carlos Cavazos on 01-22-2023 Leukocyte esterase Test strip Ql (U) Negative Negative [facility] Urine pHOrdered By: Carlos flores on 01-22-2023 pH (U) 5.0 [pH] 5.0 - 8.0 [facility] Urine sediment bacteria coun t by microscopy (number/high power field)Ordered By: Carlos Cavazos on 01-22-2023 Bacteria LM.HPF (Urine sed) [#/Area] 2 /[HPF] None Seen [facility] Urine specific gravity measu rementOrdered By: Carlos Cavazos on 01-22-2023 Specific gravity (U) [Rel density] 1.025 1.002-1.030 [facility] Urobilinogen Auto test strip Ql (U)Ordered By: Carlos Cavazos on 01-22-2023 Urobilinogen Ql (U) Normal mg/dl Normal [facility] INR in Blood by Coagulation assayOrdered By: Carlos Cavazos on 01-10-2023 INR Coag (Bld) [Relative time] 2.0 {INR} [facility] Laboratory - CoagulationOrde red By: Carlos Cavazos on 01-10-2023 PT Coag (PPP) [Time] 22.6 s 11.7-14.9 [facility] INR in Blood by Coagulation assayOrdered By: Carlos Cavazos on 12-27-2022 INR Coag (Bld) [Relative time] 2.1 {INR} [facility] Laboratory - CoagulationOrde red By: Carlos Cavazos on 12-27-2022 PT Coag (PPP) [Time] 24.1 s 11.7-14.9 [facility] INR in Blood by Coagulation assayOrdered By: Carlos Cavazos on 12-21-2022 INR Coag (Bld) [Relative time] 2.4 {INR} [facility] Laboratory - CoagulationOrde red By: Carlos Cavazos on 12-21-2022 PT Coag (PPP) [Time] 26.7 s 11.7-14.9 [facility] Laboratory - CoagulationOrde red By: Carlos Cavazos on 12-14-2022 INR Coag (Bld) [Relative time] 2.3 {INR} [facility] Comment on above: Critical Value > 4.0 Whole blood prothrombin time Ordered By: Carlos Cavazos on 12-14-2022 PT Coag (Bld) [Time] 25.2 s 11.7-14.9 [facility] Laboratory - CoagulationOrde red By: Carlos Cavazos on 12-07-2022 INR Coag (Bld) [Relative time] 2.5 {INR} [facility] Comment on above: Critical Value > 4.0 Whole blood prothrombin time Ordered By: Carlos Cavazos on 12-07-2022 PT Coag (Bld) [Time] 26.9 s 11.7-14.9 [facility] Amorphous sediment detection in urine sediment by light microscopyOrdered By: Carlos Cavazos on 11-24-2022 Amorphous sediment LM Ql (Urine sed) 1+ [facility] Basophil percentageOrdered B y: Carlos Cavazos on 11-24-2022 Basophil percentage 0 SEEN /hpf 0-5 [facility] Bilirubin [Mass/Vol] 0.30 mg/dL 0.20-1.00 [facility] Comment on above: For patients on eltr ombopag therapy, use of Dimension [place] TBIL is not recommended. Chloride [Moles/Vol] 107 mmol/L 98-107 [facility] Glucose [Mass/Vol] 95 mg/dL 74-106 [facility] Potassium [Moles/Vol] 4.2 mmol/L 3.5-5.1 [facility] Protein [Mass/Vol] 6.9 g/dL 6.4-8.2 [facility] Sodium [Moles/Vol] 138 mmol/L 136-145 [facility] WBC (Bld) [#/Vol] 10.4 10*3/uL 4.4-11.0 [facility] Bilirubin Test strip Ql (U)O rdered By: Carlos Cavazos on 11-24-2022 Bilirubin Ql (U) Negative Negative [facility] Blood erythrocytes count (nu mber/volume)Ordered By: Carlos Cavazos on 11-24-2022 RBC (Bld) [#/Vol] 4.44 10*6/uL 4.6-6.2 [facility] Blood hemoglobin measurement (mass/volume)Ordered By: Carlos Cavazos on 11-24-2022 Hemoglobin (Bld) [Mass/Vol] 11.8 g/dL 13.0-16.5 [facility] Blood platelet mean volumeOr dered By: Carlos Cavazos on 11-24-2022 Platelet mean volume (Bld) [Entitic vol] 9.7 fL 6.2-12.0 [facility] Calcium oxalate crystals det ection in urine sediment by light microscopyOrdered By: Carlos Cavazos on 11-24-2022 Calcium oxalate crystals LM Ql (Urine sed) RARE /hpf [facility] Culture, urineOrdered By: Sharif Crouch on 11-24-2022 Bacteria identified Cx Nom (U) Positive [facility] Determination of erythrocyte mean corpuscular volume (MCV)Ordered By: Carlos Cavazos on 11-24-2022 MCV (RBC) [Entitic vol] 84.7 fL 80-94 [facility] Hematocrit Auto (Bld) [Volum e fraction]Ordered By: Carlos Cavazos on 11-24-2022 Hematocrit (Bld) [Volume fraction] 37.6 % 40-54 [facility] Ketones Test strip Ql (U)Ord ered By: Carlos Cavazos on 11-24-2022 Ketones Ql (U) Negative Negative [facility] Laboratory - Chemistry and C hemistry - challengeOrdered By: Carlos Cavazos on 11-24-2022 ALP [Catalytic activity/Vol] 103 U/L 45-117 [facility] ALT [Catalytic activity/Vol] 14 U/L 16-61 [facility] CO2 [Moles/Vol] 26.0 mmol/L 21.0-32.0 [facility] Globulin (S) [Mass/Vol] 4.0 g/dL 2.2-4.2 [facility] Urea nitrogen/Creatinine [Mass ratio] 24.1 mg/mg 10-20 [facility] Laboratory - Hematology and Cell countsOrdered By: Carlos Cavazos on 11-24-2022 Erythrocyte distribution width (RBC) [Entitic vol] 49.4 fL 35.1-43.9 [facility] Erythrocyte distribution width (RBC) [Ratio] 16.0 % 11.6-14.6 [facility] MCH (RBC) [Entitic mass] 26.6 pg 27.0-32.0 [facility] MCHC Auto (RBC) [Mass/Vol]Or dered By: Carlos Cavazos on 11-24-2022 MCHC (RBC) [Mass/Vol] 31.4 g/dL 32-36 [facility] Mucus LM Ql (Urine sed)Order ed By: Carlos Cavazos on 11-24-2022 Mucus Ql (Urine sed) 0 SEEN /hpf [facility] Nitrite Test strip Ql (U)Ord ered By: Carlos Cvaazos on 11-24-2022 Nitrite Ql (U) Negative Negative [facility] No Panel InformationOrdered By: Carlos Cavazos on 11-24-2022 Estimated GFR (MDRD) Amer 118 mL/min >60 [facility] Comment on above: GFR Calc Estimated GFR (MDRD) Non-Af Amer 97 mL/min >60 [facility] Comment on above: Non- GFR Calc Platelets bldOrdered By: Ted Cavazos on 11-24-2022 Platelets (Bld) [#/Vol] 309 10*3/uL 150-450 [facility] Protein Test strip Ql (U)Ord ered By: Carlos Cavazos on 11-24-2022 Protein Ql (U) Negative Negative [facility] Serum or plasma albumin oral urement (mass/volume)Ordered By: Carlos Cavazos on 11-24-2022 Albumin [Mass/Vol] 2.9 g/dL 3.2-5.0 [facility] Serum or plasma albumin/glob ulin mass ratioOrdered By: Carlos Cavazos on 11-24-2022 Albumin/Globulin [Mass ratio] 0.7 {ratio} 0.9-2.4 [facility] Serum or plasma calcium oral urement (mass/volume)Ordered By: Carlos Cavazos on 11-24-2022 Calcium [Mass/Vol] 8.7 mg/dL 8.5-10.1 [facility] Serum or plasma creatinine m easurement (mass/volume)Ordered By: Carlos Cavazos on 11-24-2022 Creatinine [Mass/Vol] 0.83 mg/dL 0.70-1.30 [facility] Comment on above: The validity of the calculated GFR & GFRAA in patients over 70 years has not been determined. Clinical correlation is essential. Serum or plasma urea nitroge n measurement (mass/volume)Ordered By: Carlos Cavazos on 11-24-2022 Urea nitrogen [Mass/Vol] 20 mg/dL 7-18 [facility] Squamous epithelial cells de tection in urine sediment by light microscopyOrdered By: Carlos Cavazos on 11-24-2022 Epithelial cells.squamous LM Ql (Urine sed) 0 SEEN /hpf 0-5 [facility] Thin prep Papanicolaou smear with manual screeningOrdered By: Carols Cavazos on 11-24-2022 Thin prep Papanicolaou smear with manual screening 10 U/L 15-37 [facility] Thin prep Papanicolaou smear with manual screening 5 5-15 [facility] Urine blood detectionOrdered By: Carlos Cavazos on 11-24-2022 RBC Ql (U) Negative Negative [facility] RBC Ql (U) 0 SEEN /hpf 0-5 [facility] Urine clarityOrdered By: Ted Cavazos on 11-24-2022 Clarity (U) Clear Clear [facility] Urine color determinationOrd ered By: Carlos Cavazos on 11-24-2022 Color (U) Yellow Yellow [facility] Urine glucose detectionOrder ed By: Carlos Cavazos on 11-24-2022 Glucose Ql (U) Normal mg/dl Normal [facility] Urine leukocyte esterase det ection by dipstickOrdered By: Carlos Cavazos on 11-24-2022 Leukocyte esterase Test strip Ql (U) Negative Negative [facility] Urine pHOrdered By: Carlos flores on 11-24-2022 pH (U) 7.0 [pH] 5.0 - 8.0 [facility] Urine sediment bacteria coun t by microscopy (number/high power field)Ordered By: Carlos Cavazos on 11-24-2022 Bacteria LM.HPF (Urine sed) [#/Area] 0 /[HPF] None Seen [facility] Urine specific gravity measu rementOrdered By: Carlos Cavazos on 11-24-2022 Specific gravity (U) [Rel density] 1.010 1.002-1.030 [facility] Urobilinogen Auto test strip Ql (U)Ordered By: Carlos Cavazos on 11-24-2022 Urobilinogen Ql (U) Normal mg/dl Normal [facility] Laboratory - CoagulationOrde red By: Carlos Cavazos on 11-23-2022 INR Coag (Bld) [Relative time] 2.2 {INR} [facility] Comment on above: Critical Value > 4.0 Whole blood prothrombin time Ordered By: Carlos Cavazos on 11-23-2022 PT Coag (Bld) [Time] 24.5 s 11.7-14.9 [facility] Basophil percentageOrdered B y: Carlos Cavazos on 11-22-2022 Chloride [Moles/Vol] 105 mmol/L 98-107 [facility] Glucose [Mass/Vol] 91 mg/dL 74-106 [facility] Potassium [Moles/Vol] 4.1 mmol/L 3.5-5.1 [facility] Sodium [Moles/Vol] 138 mmol/L 136-145 [facility] WBC (Bld) [#/Vol] 12.0 10*3/uL 4.4-11.0 [facility] Blood erythrocytes count (nu mber/volume)Ordered By: Carlos Cavazos on 11-22-2022 RBC (Bld) [#/Vol] 4.65 10*6/uL 4.6-6.2 [facility] Blood hemoglobin measurement (mass/volume)Ordered By: Carlos Cavazos on 11-22-2022 Hemoglobin (Bld) [Mass/Vol] 12.4 g/dL 13.0-16.5 [facility] Blood platelet mean volumeOr dered By: Carlos Cavazos on 11-22-2022 Platelet mean volume (Bld) [Entitic vol] 10.3 fL 6.2-12.0 [facility] Determination of erythrocyte mean corpuscular volume (MCV)Ordered By: Carlos Cavazos on 11-22-2022 MCV (RBC) [Entitic vol] 86.0 fL 80-94 [facility] Hematocrit Auto (Bld) [Volum e fraction]Ordered By: Carlos Cavazos on 11-22-2022 Hematocrit (Bld) [Volume fraction] 40.0 % 40-54 [facility] Laboratory - Chemistry and C hemistry - challengeOrdered By: Carlos Cavazos on 11-22-2022 CO2 [Moles/Vol] 25.0 mmol/L 21.0-32.0 [facility] Urea nitrogen/Creatinine [Mass ratio] 23.6 mg/mg 10-20 [facility] Laboratory - Hematology and Cell countsOrdered By: Carlos Cavazos on 11-22-2022 Erythrocyte distribution width (RBC) [Entitic vol] 50.0 fL 35.1-43.9 [facility] Erythrocyte distribution width (RBC) [Ratio] 15.9 % 11.6-14.6 [facility] MCH (RBC) [Entitic mass] 26.7 pg 27.0-32.0 [facility] MCHC Auto (RBC) [Mass/Vol]Or dered By: Carlos Cavazos on 11-22-2022 MCHC (RBC) [Mass/Vol] 31.0 g/dL 32-36 [facility] No Panel InformationOrdered By: Carlos Cavazos on 11-22-2022 Estimated GFR (MDRD) Amer 115 mL/min >60 [facility] Comment on above: GFR Calc Estimated GFR (MDRD) Non-Af Amer 95 mL/min >60 [facility] Comment on above: Non- GFR Calc Platelets bldOrdered By: Pet er Kenny on 11-22-2022 Platelets (Bld) [#/Vol] 320 10*3/uL 150-450 [facility] Serum or plasma calcium oral urement (mass/volume)Ordered By: Carlos Cavazos on 11-22-2022 Calcium [Mass/Vol] 8.7 mg/dL 8.5-10.1 [facility] Serum or plasma creatinine m easurement (mass/volume)Ordered By: Carlos Cavazos on 11-22-2022 Creatinine [Mass/Vol] 0.85 mg/dL 0.70-1.30 [facility] Comment on above: The validity of the calculated GFR & GFRAA in patients over 70 years has not been determined. Clinical correlation is essential. Serum or plasma urea nitroge n measurement (mass/volume)Ordered By: Carlos Cavazos on 11-22-2022 Urea nitrogen [Mass/Vol] 20 mg/dL 7-18 [facility] Thin prep Papanicolaou smear with manual screeningOrdered By: Carlos Cavazos on 11-22-2022 Thin prep Papanicolaou smear with manual screening 8 5-15 [facility] Laboratory - CoagulationOrde red By: Carlos Cavazos on 11-09-2022 INR Coag (Bld) [Relative time] 2.1 {INR} [facility] Comment on above: Critical Value > 4.0 Whole blood prothrombin time Ordered By: Carlos Cavazos on 11-09-2022 PT Coag (Bld) [Time] 22.6 s 11.7-14.9 [facility] Laboratory - CoagulationOrde red By: Carlos Cavazos on 10-26-2022 INR Coag (Bld) [Relative time] 2.6 {INR} [facility] Comment on above: Critical Value > 4.0 Whole blood prothrombin time Ordered By: Carlos Cavazos on 10-26-2022 PT Coag (Bld) [Time] 28.5 s 11.7-14.9 [facility] Laboratory - CoagulationOrde red By: Carlos Cavazos on 10-12-2022 INR Coag (Bld) [Relative time] 2.4 {INR} [facility] Comment on above: Critical Value > 4.0 Whole blood prothrombin time Ordered By: Carlos Cavazos on 10-12-2022 PT Coag (Bld) [Time] 26.4 s 11.7-14.9 [facility] Laboratory - CoagulationOrde red By: Carlos Cavazos on 10-05-2022 INR Coag (Bld) [Relative time] 2.6 {INR} [facility] Comment on above: Critical Value > 4.0 Whole blood prothrombin time Ordered By: Carlos Cavazos on 10-05-2022 PT Coag (Bld) [Time] 28.0 s 11.7-14.9 [facility] Laboratory - CoagulationOrde red By: Carlos Cavazos on 09-28-2022 INR Coag (Bld) [Relative time] 2.7 {INR} [facility] Comment on above: Critical Value > 4.0 Whole blood prothrombin time Ordered By: Carlos Cavazos on 09-28-2022 PT Coag (Bld) [Time] 28.9 s 11.7-14.9 [facility] Laboratory - CoagulationOrde red By: Carlos Cavazos on 09-14-2022 INR Coag (Bld) [Relative time] 2.5 {INR} [facility] Comment on above: Critical Value > 4.0 Whole blood prothrombin time Ordered By: Carlos Cavazos on 09-14-2022 PT Coag (Bld) [Time] 27.4 s 11.7-14.9 [facility] Laboratory - CoagulationOrde red By: Carlos Cavazos on 08-31-2022 INR Coag (Bld) [Relative time] 2.3 {INR} [facility] Comment on above: Critical Value > 4.0 Whole blood prothrombin time Ordered By: Carlos Cavazos on 08-31-2022 PT Coag (Bld) [Time] 25.4 s 11.7-14.9 [facility] Basophil percentageOrdered B y: Carlos Cavazos on 08-23-2022 Chloride [Moles/Vol] 108 mmol/L 98-107 [facility] Glucose [Mass/Vol] 86 mg/dL 74-106 [facility] Potassium [Moles/Vol] 4.3 mmol/L 3.5-5.1 [facility] Sodium [Moles/Vol] 136 mmol/L 136-145 [facility] WBC (Bld) [#/Vol] 10.0 10*3/uL 4.4-11.0 [facility] Blood erythrocytes count (nu mber/volume)Ordered By: Carlos Cavazos on 08-23-2022 RBC (Bld) [#/Vol] 4.77 10*6/uL 4.6-6.2 [facility] Blood hemoglobin measurement (mass/volume)Ordered By: Carlos Cavazos on 08-23-2022 Hemoglobin (Bld) [Mass/Vol] 12.5 g/dL 13.0-16.5 [facility] Blood platelet mean volumeOr dered By: Carlos Cavazos on 08-23-2022 Platelet mean volume (Bld) [Entitic vol] 11.0 fL 6.2-12.0 [facility] Determination of erythrocyte mean corpuscular volume (MCV)Ordered By: Carlos Cavazos on 08-23-2022 MCV (RBC) [Entitic vol] 84.3 fL 80-94 [facility] Hematocrit Auto (Bld) [Volum e fraction]Ordered By: Carlos Cavazos on 08-23-2022 Hematocrit (Bld) [Volume fraction] 40.2 % 40-54 [facility] Laboratory - Chemistry and C hemistry - challengeOrdered By: Carlos Cavazos on 08-23-2022 CO2 [Moles/Vol] 24.0 mmol/L 21.0-32.0 [facility] Urea nitrogen/Creatinine [Mass ratio] 22.8 mg/mg 10-20 [facility] Laboratory - Hematology and Cell countsOrdered By: Carlos Cavazos on 08-23-2022 Erythrocyte distribution width (RBC) [Entitic vol] 49.3 fL 35.1-43.9 [facility] Erythrocyte distribution width (RBC) [Ratio] 16.0 % 11.6-14.6 [facility] MCH (RBC) [Entitic mass] 26.2 pg 27.0-32.0 [facility] MCHC Auto (RBC) [Mass/Vol]Or dered By: Carlos Cavazos on 08-23-2022 MCHC (RBC) [Mass/Vol] 31.1 g/dL 32-36 [facility] No Panel InformationOrdered By: Carlos Cavazos on 08-23-2022 Estimated GFR (MDRD) Amer 134 mL/min >60 [facility] Comment on above: GFR Calc Estimated GFR (MDRD) Non-Af Amer 110 mL/min >60 [facility] Comment on above: Non- GFR Calc Platelets bldOrdered By: Ted Cavazos on 08-23-2022 Platelets (Bld) [#/Vol] 268 10*3/uL 150-450 [facility] Serum or plasma calcium oral urement (mass/volume)Ordered By: Carlos Cavazos on 08-23-2022 Calcium [Mass/Vol] 9.1 mg/dL 8.5-10.1 [facility] Serum or plasma creatinine m easurement (mass/volume)Ordered By: Carlos Cavazos on 08-23-2022 Creatinine [Mass/Vol] 0.74 mg/dL 0.70-1.30 [facility] Comment on above: The validity of the calculated GFR & GFRAA in patients over 70 years has not been determined. Clinical correlation is essential. Serum or plasma urea nitroge n measurement (mass/volume)Ordered By: Carlos Cavazos on 08-23-2022 Urea nitrogen [Mass/Vol] 17 mg/dL 7-18 [facility] Thin prep Papanicolaou smear with manual screeningOrdered By: Carlos Cavazos on 08-23-2022 Thin prep Papanicolaou smear with manual screening 4 5-15 [facility] Laboratory - CoagulationOrde red By: Carlos Cavazos on 08-17-2022 INR Coag (Bld) [Relative time] 2.8 {INR} [facility] Comment on above: Critical Value > 4.0 Whole blood prothrombin time Ordered By: Carlos Cavazos on 08-17-2022 PT Coag (Bld) [Time] 29.6 s 11.7-14.9 [facility] Laboratory - CoagulationOrde red By: Carlos Cavazos on 08-14-2022 INR Coag (Bld) [Relative time] 3.9 {INR} [facility] Comment on above: Critical Value > 4.0 Whole blood prothrombin time Ordered By: Carlos Cavazos on 08-14-2022 PT Coag (Bld) [Time] 40.6 s 11.7-14.9 [facility] Laboratory - CoagulationOrde red By: Carlos Cavazos on 07-31-2022 INR Coag (Bld) [Relative time] 2.5 {INR} [facility] Comment on above: Critical Value > 4.0 Whole blood prothrombin time Ordered By: Carlos Cavazos on 07-31-2022 PT Coag (Bld) [Time] 26.8 s 11.7-14.9 [facility] INR in Blood by Coagulation assayOrdered By: Carlos Cavazos on 07-24-2022 INR Coag (Bld) [Relative time] 2.3 {INR} [facility] Laboratory - CoagulationOrde red By: Carlos Cavazos on 07-24-2022 PT Coag (PPP) [Time] 24.7 s 11.7-14.9 [facility] Laboratory - CoagulationOrde red By: Carlos Cavazos on 07-20-2022 INR Coag (Bld) [Relative time] 1.9 {INR} [facility] Comment on above: Critical Value > 4.0 Whole blood prothrombin time Ordered By: Carlos Cavazos on 07-20-2022 PT Coag (Bld) [Time] 20.6 s 11.7-14.9 [facility] Laboratory - CoagulationOrde red By: Carlos Cavazos on 07-17-2022 INR Coag (Bld) [Relative time] 1.3 {INR} [facility] Comment on above: Critical Value > 4.0 Whole blood prothrombin time Ordered By: Carlos Cavazos on 07-17-2022 PT Coag (Bld) [Time] 15.9 s 11.7-14.9 [facility] Basophil percentageOrdered B y: Carlos Cavazos on 07-11-2022 Chloride [Moles/Vol] 105 mmol/L 98-107 [facility] Glucose [Mass/Vol] 97 mg/dL 74-106 [facility] Potassium [Moles/Vol] 3.9 mmol/L 3.5-5.1 [facility] Sodium [Moles/Vol] 140 mmol/L 136-145 [facility] WBC (Bld) [#/Vol] 9.4 10*3/uL 4.4-11.0 [facility] Blood erythrocytes count (nu mber/volume)Ordered By: Carlos Cavazos on 07-11-2022 RBC (Bld) [#/Vol] 4.66 10*6/uL 4.6-6.2 [facility] Blood hemoglobin measurement (mass/volume)Ordered By: Carlos Cavazos on 07-11-2022 Hemoglobin (Bld) [Mass/Vol] 12.0 g/dL 13.0-16.5 [facility] Blood platelet mean volumeOr dered By: Carlos Cavazos on 07-11-2022 Platelet mean volume (Bld) [Entitic vol] 10.4 fL 6.2-12.0 [facility] Determination of erythrocyte mean corpuscular volume (MCV)Ordered By: Carlos Cavazos on 07-11-2022 MCV (RBC) [Entitic vol] 83.7 fL 80-94 [facility] Hematocrit Auto (Bld) [Volum e fraction]Ordered By: Carlos Cavazos on 07-11-2022 Hematocrit (Bld) [Volume fraction] 39.0 % 40-54 [facility] Laboratory - Chemistry and C hemistry - challengeOrdered By: Carlos Cavazos on 07-11-2022 CO2 [Moles/Vol] 28.0 mmol/L 21.0-32.0 [facility] Urea nitrogen/Creatinine [Mass ratio] 23.0 mg/mg 10-20 [facility] Laboratory - Hematology and Cell countsOrdered By: Carlos Cavazos on 07-11-2022 Erythrocyte distribution width (RBC) [Entitic vol] 51.0 fL 35.1-43.9 [facility] Erythrocyte distribution width (RBC) [Ratio] 16.8 % 11.6-14.6 [facility] MCH (RBC) [Entitic mass] 25.8 pg 27.0-32.0 [facility] MCHC Auto (RBC) [Mass/Vol]Or dered By: Carlos Cavazos on 07-11-2022 MCHC (RBC) [Mass/Vol] 30.8 g/dL 32-36 [facility] No Panel InformationOrdered By: Carlos Cavazos on 07-11-2022 Estimated GFR (MDRD) Amer 126 mL/min >60 [facility] Comment on above: GFR Calc Estimated GFR (MDRD) Non-Af Amer 104 mL/min >60 [facility] Comment on above: Non- GFR Calc Platelets bldOrdered By: Ted Cavazos on 07-11-2022 Platelets (Bld) [#/Vol] 291 10*3/uL 150-450 [facility] Serum or plasma calcium oral urement (mass/volume)Ordered By: Carlos Cavazos on 07-11-2022 Calcium [Mass/Vol] 9.2 mg/dL 8.5-10.1 [facility] Serum or plasma creatinine m easurement (mass/volume)Ordered By: Carlos Cavazos on 07-11-2022 Creatinine [Mass/Vol] 0.78 mg/dL 0.70-1.30 [facility] Comment on above: The validity of the calculated GFR & GFRAA in patients over 70 years has not been determined. Clinical correlation is essential. Serum or plasma urea nitroge n measurement (mass/volume)Ordered By: Carlos Cavazos on 07-11-2022 Urea nitrogen [Mass/Vol] 18 mg/dL 7-18 [facility] Thin prep Papanicolaou smear with manual screeningOrdered By: Carlos Cavazos on 07-11-2022 Thin prep Papanicolaou smear with manual screening 7 5-15 [facility] Laboratory - CoagulationOrde red By: Carlos Cavazos on 07-10-2022 INR Coag (Bld) [Relative time] 1.8 {INR} [facility] Comment on above: Critical Value > 4.0 Whole blood prothrombin time Ordered By: Carlos Cavazos on 07-10-2022 PT Coag (Bld) [Time] 21.0 s 11.7-14.9 [facility] Laboratory - CoagulationOrde red By: Carlos Cavazos on 07-03-2022 INR Coag (Bld) [Relative time] 1.9 {INR} [facility] Comment on above: Critical Value > 4.0 Whole blood prothrombin time Ordered By: Carlos Cavazos on 07-03-2022 PT Coag (Bld) [Time] 22.7 s 11.7-14.9 [facility] INR in Blood by Coagulation assayOrdered By: Carlos Cavaozs on 06-27-2022 INR Coag (Bld) [Relative time] 2.9 {INR} [facility] Laboratory - CoagulationOrde red By: Carlos Cavazos on 06-27-2022 PT Coag (PPP) [Time] 29.9 s 11.7-14.9 [facility] Laboratory - CoagulationOrde red By: Carlos Cavazos on 06-13-2022 INR Coag (Bld) [Relative time] 2.1 {INR} [facility] Comment on above: Critical Value > 4.0 Whole blood prothrombin time Ordered By: Carlos Cavazos on 06-13-2022 PT Coag (Bld) [Time] 24.4 s 11.7-14.9 [facility] Laboratory - CoagulationOrde red By: Carlos Cavazos on 06-06-2022 INR Coag (Bld) [Relative time] 1.5 {INR} [facility] Comment on above: Critical Value > 4.0 Whole blood prothrombin time Ordered By: Carlos Cavazos on 06-06-2022 PT Coag (Bld) [Time] 18.4 s 11.7-14.9 [facility] Basophil percentageOrdered B y: Carlos Cavazos on 05-30-2022 Chloride [Moles/Vol] 105 mmol/L 98-107 [facility] Glucose [Mass/Vol] 95 mg/dL 74-106 [facility] Potassium [Moles/Vol] 3.9 mmol/L 3.5-5.1 [facility] Sodium [Moles/Vol] 140 mmol/L 136-145 [facility] WBC (Bld) [#/Vol] 7.6 10*3/uL 4.4-11.0 [facility] Blood erythrocytes count (nu mber/volume)Ordered By: Carlos Cavazos on 05-30-2022 RBC (Bld) [#/Vol] 4.79 10*6/uL 4.6-6.2 [facility] Blood hemoglobin measurement (mass/volume)Ordered By: Carlos Cavazos on 05-30-2022 Hemoglobin (Bld) [Mass/Vol] 12.1 g/dL 13.0-16.5 [facility] Blood platelet mean volumeOr dered By: Carlos Cavazos on 05-30-2022 Platelet mean volume (Bld) [Entitic vol] 10.4 fL 6.2-12.0 [facility] Determination of erythrocyte mean corpuscular volume (MCV)Ordered By: Carlos Cavazos on 05-30-2022 MCV (RBC) [Entitic vol] 82.5 fL 80-94 [facility] Hematocrit Auto (Bld) [Volum e fraction]Ordered By: Carlos Cavazos on 05-30-2022 Hematocrit (Bld) [Volume fraction] 39.5 % 40-54 [facility] INR in Blood by Coagulation assayOrdered By: Carlos Cavazos on 05-30-2022 INR Coag (Bld) [Relative time] 1.9 {INR} [facility] Laboratory - Chemistry and C hemistry - challengeOrdered By: Carlos Cavazos on 05-30-2022 CO2 [Moles/Vol] 27.0 mmol/L 21.0-32.0 [facility] Urea nitrogen/Creatinine [Mass ratio] 21.4 mg/mg 10-20 [facility] Laboratory - CoagulationOrde red By: Carlos Cavazos on 05-30-2022 PT Coag (PPP) [Time] 21.6 s 11.7-14.9 [facility] Laboratory - Hematology and Cell countsOrdered By: Carlos Cavazos on 05-30-2022 Erythrocyte distribution width (RBC) [Entitic vol] 48.8 fL 35.1-43.9 [facility] Erythrocyte distribution width (RBC) [Ratio] 16.2 % 11.6-14.6 [facility] MCH (RBC) [Entitic mass] 25.3 pg 27.0-32.0 [facility] MCHC Auto (RBC) [Mass/Vol]Or dered By: Carlos Cavazos on 05-30-2022 MCHC (RBC) [Mass/Vol] 30.6 g/dL 32-36 [facility] No Panel InformationOrdered By: Carlos Cavazos on 05-30-2022 Estimated GFR (MDRD) Amer 133 mL/min >60 [facility] Comment on above: GFR Calc Estimated GFR (MDRD) Non-Af Amer 110 mL/min >60 [facility] Comment on above: Non- GFR Calc Platelets bldOrdered By: Ted Cavazos on 05-30-2022 Platelets (Bld) [#/Vol] 308 10*3/uL 150-450 [facility] Serum or plasma calcium oral urement (mass/volume)Ordered By: Carlos Cavazos on 05-30-2022 Calcium [Mass/Vol] 9.1 mg/dL 8.5-10.1 [facility] Serum or plasma creatinine m easurement (mass/volume)Ordered By: Carlos Cavazos on 05-30-2022 Creatinine [Mass/Vol] 0.75 mg/dL 0.70-1.30 [facility] Comment on above: The validity of the calculated GFR & GFRAA in patients over 70 years has not been determined. Clinical correlation is essential. Serum or plasma urea nitroge n measurement (mass/volume)Ordered By: Carlos Cavazos on 05-30-2022 Urea nitrogen [Mass/Vol] 16 mg/dL 7-18 [facility] Thin prep Papanicolaou smear with manual screeningOrdered By: Carlos Cavazos on 05-30-2022 Thin prep Papanicolaou smear with manual screening 8 5-15 [facility] Laboratory - CoagulationOrde red By: Carlos Cavazos on 05-16-2022 INR Coag (Bld) [Relative time] 2.6 {INR} [facility] Comment on above: Critical Value > 4.0 Whole blood prothrombin time Ordered By: Carlos Cavazos on 05-16-2022 PT Coag (Bld) [Time] 29.9 s 11.7-14.9 [facility] Laboratory - CoagulationOrde red By: Carlos Cavazos on 05-02-2022 INR Coag (Bld) [Relative time] 2.0 {INR} [facility] Comment on above: Critical Value > 4.0 Whole blood prothrombin time Ordered By: Carlos Cavazos on 05-02-2022 PT Coag (Bld) [Time] 23.2 s 11.7-14.9 [facility] Laboratory - CoagulationOrde red By: Carlos Cavazos on 04-27-2022 INR Coag (Bld) [Relative time] 2.7 {INR} [facility] Comment on above: Critical Value > 4.0 Whole blood prothrombin time Ordered By: Carlos Cavazos on 04-27-2022 PT Coag (Bld) [Time] 31.1 s 11.7-14.9 [facility] Laboratory - CoagulationOrde red By: Carlos Cavazos on 04-26-2022 INR Coag (Bld) [Relative time] 2.8 {INR} [facility] Comment on above: Critical Value > 4.0 Whole blood prothrombin time Ordered By: Carlos Cavazos on 04-26-2022 PT Coag (Bld) [Time] 32.6 s 11.7-14.9 [facility] Laboratory - CoagulationOrde red By: Carlos Cavazos on 04-11-2022 INR Coag (Bld) [Relative time] 2.9 {INR} [facility] Comment on above: Critical Value > 4.0 Whole blood prothrombin time Ordered By: Carlos Cavazos on 04-11-2022 PT Coag (Bld) [Time] 32.8 s 11.7-14.9 [facility] Laboratory - CoagulationOrde red By: Carlos Cvaazos on 03-28-2022 INR Coag (Bld) [Relative time] 2.1 {INR} [facility] Comment on above: Critical Value > 4.0 Whole blood prothrombin time Ordered By: Carlos Cavazos on 03-28-2022 PT Coag (Bld) [Time] 24.8 s 11.7-14.9 [facility] Laboratory - CoagulationOrde red By: Carlos Cavazos on 03-23-2022 INR Coag (Bld) [Relative time] 1.7 {INR} [facility] Comment on above: Critical Value > 4.0 Whole blood prothrombin time Ordered By: Carlos Cavazos on 03-23-2022 PT Coag (Bld) [Time] 20.9 s 11.7-14.9 [facility] Laboratory - CoagulationOrde red By: Carlos Cavazos on 03-16-2022 INR Coag (Bld) [Relative time] 1.7 {INR} [facility] Comment on above: Critical Value > 4.0 Whole blood prothrombin time Ordered By: Carlos Cavazos on 03-16-2022 PT Coag (Bld) [Time] 19.9 s 11.7-14.9 [facility] Laboratory - CoagulationOrde red By: Carlos Cavazos on 03-09-2022 INR Coag (Bld) [Relative time] 1.8 {INR} [facility] Comment on above: Critical Value > 4.0 Whole blood prothrombin time Ordered By: Carlos Cavazos on 03-09-2022 PT Coag (Bld) [Time] 21.9 s 11.7-14.9 [facility] Laboratory - CoagulationOrde red By: Carlos Cavazos on 03-06-2022 INR Coag (Bld) [Relative time] 1.7 {INR} [facility] Comment on above: Critical Value > 4.0 Whole blood prothrombin time Ordered By: Carlos Cavazos on 03-06-2022 PT Coag (Bld) [Time] 20.0 s 11.7-14.9 [facility] CBC with Auto Differentialon 03-02-2022 Absolute [...] - 10.7 10*3/uL [facility] Test Performed by [facility], [address] [place] [id number] [place] [address] [facility] [address] HEAD WO CONTRASTon 2021 Patient Name: ANRDEW SIFUENTES Computed Tomography ACCESSION EXAM DATE/TIME PROCEDURE ORDERING PROVIDER [id number] 03/02/2022 13:[address] Head or Brain w/o [id number] -LANETTE MUNGUIA Contrast CPT code 50584 Reason For Exam (CT Head or Brain [...] tubes (parent active on the left for BRAKE REPAIR MECH[employer]IC shunting and disconnected on the right). 2. No definite evidence of acute infarction (MRI more sensitive), mass lesion, nor hemorrhage. Report Dictated on --- Final --- Dictated: 03/02/2022 1:35 pm Dictating Physician: MD GUTIERREZ WILLIAM Signed Date and Time: 03/02/2022 1:39 pm Signed by: MD GUTIERREZ WILLIAM Transcribed Date and Time: 03/02/2022 1:35 [facility] Anant Gutierrez MD - 03/02/2022 [id number] ACCESSION EXAM DATE/TIME PROCEDURE ORDERING PROVIDER [id number] 03/02/2022 13:[address] Head or Brain w/o [id number] -LANETTE MUNGUIA Contrast CPT code 03159 Reason For Exam (CT Head or Brain [...] tubes (parent active on the left for BRAKE REPAIR MECH[employer]IC shunting and disconnected on the right). 2. [...] Tomography ACCESSION EXAM DATE/TIME PROCEDURE ORDERING PROVIDER [id number] 03/02/2022 13:[address] Head or Brain w/o [id number] -LANETTE MUNGUIA Contrast CPT code 30696 Reason For Exam (CT Head or Brain [...] tubes (parent active on the left for BRAKE REPAIR MECH[employer]IC shunting and disconnected on the right). 2. No definite evidence of acute infarction (MRI more sensitive), mass lesion, nor hemorrhage. Report Dictated on Final Dictated: 03/02/2022 1:35 pm Dictating Physician: MD GUTIERREZ WILLIAM Signed Date and Time: 03/02/2022 1:39 pm Signed by: MD GUTIERREZ WILLIAM Transcribed Date and Time: 03/02/2022 1:35 Normal [facility] Comp Metabolic Panelon 03-02 Calcium [Mass/Vol] 9.1 mg/dL Normal 8.4-10.4 [facility] Comment on above: Performed By: #### H TIERA PT, CMP3 ####[facility] [place], [place] ALP [Catalytic activity/Vol] 128 U/L High 38-126 [facility] Comment on above: Performed By: #### H TIERA PT, CMP3 ####[facility] [place], [place] ALT [Catalytic activity/Vol] 12 U/L Normal 0-49 [facility] Comment on above: Result Comment: The ALT test is performed by an updated assay method. Please note that the reference intervals have been changed and are now sex specific. Performed By: #### H EMDF PT, CMP3 ####[facility] [facility] [place], [place] Anion gap [Moles/Vol] 7 mmol/L Normal 3-13 [facility] Comment on above: Performed By: #### H BIMALF PT, CMP3 ####[place] [id number] [place], [place] AST [Catalytic activity/Vol] 24 U/L Normal 15-46 [facility] Comment on above: Performed By: #### H EMDF, PT, CMP3 ####[facility] [place], [place] Bilirubin [Mass/Vol] 0.4 mg/dL Normal 0.2-1.3 [facility] Comment on above: Performed By: #### H EMDF, PT, CMP3 ####[facility] [facility] [place], [place] CO2 [Moles/Vol] 27 mmol/L Normal 22-30 [facility] Comment on above: Performed By: #### H EMDF, PT, CMP3 ####[facility] [facility] [place], [place] Glucose [Mass/Vol] 109 mg/dL High 70-100 [facility] Comment on above: Performed By: #### H EMDF, PT, CMP3 ####[facility] [facility] [place], [place] Protein [Mass/Vol] 8.1 g/dL Normal 6.3-8.2 [facility] Comment on above: Performed By: #### H EMDF, PT, CMP3 ####[place] [address] [facility] [place], [place] Urea nitrogen [Mass/Vol] 22 mg/dL High 7-17 [facility] Comment on above: Performed By: #### H EMDF, PT, CMP3 ####[facility] [facility] [place], [place] Creatinine [Mass/Vol] 0.63 mg/dL Normal 0.52-1.25 [facility] Comment on above: Performed By: #### H EMDF, PT, CMP3 ####[place] [id number] [employer] [place], [place] eGFR OTHER > 90.0 Normal >60 [facility] Comment on above: Result Comment: KDIG O [...] Performed By: #### H CHRISTEL MOTT CMP3 ####[address] GFR/1.73 sq M.predicted among blacks MDRD (S/P/Bld) [Vol rate/Area] mL/min/{1.73_m2} Normal >60 [facility] Comment on above: Performed By: #### H CHRISTEL MOTT CMP3 ####[address] Albumin [Mass/Vol] 4.1 g/dL Normal 3.5-5.0 [facility] Comment on above: Performed By: #### H CHRISTEL MOTT CMP3 ####[address] Chloride [Moles/Vol] 106 mmol/L Normal 98-107 [facility] Comment on above: Performed By: #### H CHRISTEL MOTT CMP3 ####[address] Potassium [Moles/Vol] 3.7 mmol/L Normal 3.5-5.1 [facility] Comment on above: Performed By: #### H CHRISTEL MOTT CMP3 ####[address] Sodium [Moles/Vol] 140 mmol/L Normal 135-145 [facility] Comment on above: Performed By: #### H CHRISTEL MOTT, CMP3 ####[address] Comprehensive Metabolic Pane kiel 03-02-2022 Albumin [...] P INF mL/min [facility] EGFR IF NonAfrican Armenian mL/min 60 - PINF mL/min [facility] Comment [...] - 17 mg/dL [facility] Test Performed by [facility], [address] [place] [id number] [facility] ED Provider Noteon 2 ED Provider Note [facility] EMERGENCY DEPT EMERGENCY DEPARTMENT ENCOUNTER Pt Name: [...] male medical history of hydrocephalus status post BRAKE REPAIR MECHANIC shunt, history of DVT on Coumadin who presents to the emergency department from [facility] for evaluation following mechanical fall. Patient rolled out of bed. Unwitnessed. Found down on ground by nursing staff. Nonambulatory at baseline. Patient reports he did not hit his head. Has no acute complaints. Denies any pain or traumatic injury. Per nursing protocol at residential, sent to emergency department due to unwitnessed [...] Hemorrhoids Hydrocephalus, adult (HCC) Kidney stone Neuropathy BRAKE REPAIR MECHANIC (ventriculoperitoneal) shunt status SURGICAL HISTORY Past Surgical [...] CONTRAST R (more content not included)... Normal [facility] Hemogram w/ Autodiffon 03-02 Abs Baso Cnt 0.2 10*3/uL Normal 0.0-0.2 [facility] Comment on above: Performed By: #### H CHRISTEL MOTT CMP3 ####[facility] [place] [address] Abs Neutrophile Cnt 10.7 10*3/uL High 1.8-7.0 [facility] Comment on above: Performed By: #### H CHRISTEL MOTT CMP3 ####[facility] [place] [address] Basophils/100 WBC (Bld) 1.1 % Normal 0.0-2.0 [facility] Comment on above: Performed By: #### H CHRISTEL MOTT CMP3 ####[place] [address] [place] [address] Eosinophils (Bld) [#/Vol] 0.1 10*3/uL Normal 0.0-0.5 [facility] Comment on above: Performed By: #### H EMDF, PT, CMP3 ####[place] [address] [place] [address] Eosinophils/100 WBC (Bld) 0.5 % Low 1.0-6.0 [facility] Comment on above: Performed By: #### H EMDF, PT, CMP3 ####[address] [address] Granulocytes/100 WBC (Bld) 73.9 % Normal 40.0-80.0 [facility] Comment on above: Performed By: #### H EMDF, PT, CMP3 ####[address] [address] Lymphocytes (Bld) [#/Vol] 3.0 10*3/uL Normal 1.0-4.3 [facility] Comment on above: Performed By: #### H EMDF, PT, CMP3 ####[address] [address] Lymphocytes/100 WBC (Bld) 20.6 % Normal 20.0-40.0 [facility] Comment on above: Performed By: #### H EMDF, PT, CMP3 ####[address] [address] Monocytes (Bld) [#/Vol] 0.6 10*3/uL Normal 0.0-0.8 [facility] Comment on above: Performed By: #### H EMDF, PT, CMP3 ####[address] [address] Monocytes/100 WBC (Bld) 3.9 % Normal 2.0-10.0 [facility] Comment on above: Performed By: #### H EMDF, PT, CMP3 ####[facility] [address] [address] Platelet mean volume (Bld) [Entitic vol] 8.5 fL Normal 7.4-12.4 [facility] Comment on above: Result Comment: MPV is a calculated measurement using platelet volume ratio. Performed By: #### H EMDF, PT, CMP3 ####[place] [id number] [place], [place] Platelets (Bld) [#/Vol] 411 10*3/uL Normal 140-440 [facility] Comment on above: Performed By: #### H EMDHeydi PT, CMP3 ####[address] Erythrocyte distribution width (RBC) [Ratio] 17.0 % High 11.5-14.5 [facility] Comment on above: Performed By: #### H EMDF, PT, CMP3 ####[address] Hematocrit (Bld) [Volume fraction] 37.4 % Low 40.0-52.0 [facility] Comment on above: Performed By: #### H EMDF PT, CMP3 ####[address] Hemoglobin (Bld) [Mass/Vol] 12.1 g/dL Low 13.0-18.0 [facility] Comment on above: Performed By: #### H EMDF, PT, CMP3 ####[address] MCH (RBC) [Entitic mass] 26.2 pg Normal 26.0-34.0 [facility] Comment on above: Performed By: #### H EMDF, PT, CMP3 ####[address] MCHC 32.3 % Normal 32.0-36.0 [facility] Comment on above: Performed By: #### H EMDF, PT, CMP3 ####[address] MCV (RBC) [Entitic vol] 81.1 fL Normal 80.0-98.0 [facility] Comment on above: Performed By: #### H EMDF, PT, CMP3 ####[address] RBC (Bld) [#/Vol] 4.61 10*6/uL Normal 4.40-5.90 [facility] Comment on above: Performed By: #### H EMDF, PT, CMP3 ####[id number] [place], [place] WBC (Bld) [#/Vol] 14.5 10*3/uL High 3.6-10.7 [facility] Comment on above: Performed By: #### H EMDF, PT, CMP3 ####[address] Prothrombin Timeon INR 1.9 High 0.9-1.1 [facility] Comment on above: Result Comment: Harry mmended [...] Performed By: #### H EMDF, PT, CMP3 ####[address] PT Coag (PPP) [Time] 18.9 s High 9.0-12.0 [facility] Comment on above: Result Comment: . Performed By: #### H EMDF, PT, CMP3 ####[address] Protime-INRon 03-02-2022 INR Coag (Bld) [Relative time] 1.9 {INR} High [facility] Comment on above: Recommended Anticoag ulant [...] Interpretation and review of laboratory results Abnormal [facility] PT Coag (PPP) [Time] 18.9 s High 9.0 - 12.0 s [facility] Comment on above: . Test Performed by [address] [address] [facility] Laboratory - CoagulationOrde red By: Carlos Cavazos on 02-20-2022 INR Coag (Bld) [Relative time] 2.6 {INR} [facility] Comment on above: Critical Value > 4.0 Whole blood prothrombin time Ordered By: Carlos Cavazos on 02-20-2022 PT Coag (Bld) [Time] 30.1 s 11.7-14.9 [facility] Laboratory - CoagulationOrde red By: Carlos Cavazos on 02-13-2022 INR Coag (Bld) [Relative time] 2.3 {INR} [facility] Comment on above: Critical Value > 4.0 Whole blood prothrombin time Ordered By: Carlos Cavazos on 02-13-2022 PT Coag (Bld) [Time] 26.7 s 11.7-14.9 [facility] Laboratory - CoagulationOrde red By: Carlos Cavazos on 02-06-2022 INR Coag (Bld) [Relative time] 2.3 {INR} [facility] Comment on above: Critical Value > 4.0 Whole blood prothrombin time Ordered By: Carlos Cavazos on 02-06-2022 PT Coag (Bld) [Time] 26.6 s 11.7-14.9 [facility] Laboratory - Coagulationon 0 01-30-2022 INR Coag (Bld) [Relative time] 1.7 {INR} [facility] Work Phone: Comment on above: Critical Value > 4.0 Whole blood prothrombin time on 01-30-2022 PT Coag (Bld) [Time] 20.1 s 11.7-14.9 [facility] Work Phone: Laboratory - Coagulationon 0 01-26-2022 INR Coag (Bld) [Relative time] 1.8 {INR} [facility] Work Phone: Comment on above: Critical Value > 4.0 Whole blood prothrombin time on 01-26-2022 PT Coag (Bld) [Time] 21.8 s 11.7-14.9 [facility] Work Phone: Laboratory - Coagulationon 0 01-19-2022 INR Coag (Bld) [Relative time] 2.2 {INR} [facility] Work Phone: Comment on above: Critical Value > 4.0 Whole blood prothrombin time on 01-19-2022 PT Coag (Bld) [Time] 25.7 s 11.7-14.9 [facility] Work Phone: INR in Blood by Coagulation assayon 01-10-2022 INR Coag (Bld) [Relative time] 1.8 {INR} [facility] Work Phone: Laboratory - Coagulationon 0 01-10-2022 PT Coag (PPP) [Time] 20.9 s 11.7-14.9 [facility] Work Phone: Basophil percentageon 2021 Chloride [Moles/Vol] 107 mmol/L 98-107 [facility] Work Phone: Glucose [Mass/Vol] 82 mg/dL 74-106 [facility] Work Phone: Potassium [Moles/Vol] 3.4 mmol/L 3.5-5.1 [facility] Work Phone: Sodium [Moles/Vol] 143 mmol/L 136-145 [facility] Work Phone: WBC (Bld) [#/Vol] 10.4 10*3/uL 4.4-11.0 [facility] Work Phone: Blood erythrocytes count (nu mber/volume)on 01-05-2022 RBC (Bld) [#/Vol] 4.27 10*6/uL 4.6-6.2 [facility] Work Phone: Blood hemoglobin measurement (mass/volume)on 01-05-2022 Hemoglobin (Bld) [Mass/Vol] 11.2 g/dL 13.0-16.5 [facility] Work Phone: Blood platelet mean volumeon 01-05-2022 Platelet mean volume (Bld) [Entitic vol] 10.3 fL 6.2-12.0 [facility] Work Phone: Determination of erythrocyte mean corpuscular volume (MCV)on 01-05-2022 MCV (RBC) [Entitic vol] 84.8 fL 80-94 [facility] Work Phone: Hematocrit Auto (Bld) [Volum e fraction]on 01-05-2022 Hematocrit (Bld) [Volume fraction] 36.2 % 40-54 [facility] Work Phone: Laboratory - Chemistry and C hemistry - challengeon 01-05-2022 CO2 [Moles/Vol] 28.0 mmol/L 21.0-32.0 [facility] Work Phone: Urea nitrogen/Creatinine [Mass ratio] 20.0 mg/mg 10-20 [facility] Work Phone: Laboratory - Hematology and Cell countson 01-05-2022 Erythrocyte distribution width (RBC) [Entitic vol] 51.8 fL 35.1-43.9 [facility] Work Phone: Erythrocyte distribution width (RBC) [Ratio] 16.8 % 11.6-14.6 [facility] Work Phone: MCH (RBC) [Entitic mass] 26.2 pg 27.0-32.0 [facility] Work Phone: MCHC Auto (RBC) [Mass/Vol]on 01-05-2022 MCHC (RBC) [Mass/Vol] 30.9 g/dL 32-36 [facility] Work Phone: No Panel Informationon 01-05 Estimated GFR (MDRD) Amer 133 mL/min >60 [facility] Work Phone: Comment on above: GFR Calc Estimated GFR (MDRD) Non-Af Amer 110 mL/min >60 [facility] Work Phone: Comment on above: Non- GFR Calc Platelets bldon 01-05-2022 Platelets (Bld) [#/Vol] 373 10*3/uL 150-450 [facility] Work Phone: Serum or plasma calcium oral urement (mass/volume)on 01-05-2022 Calcium [Mass/Vol] 8.8 mg/dL 8.5-10.1 [facility] Work Phone: Serum or plasma creatinine m easurement (mass/volume)on 01-05-2022 Creatinine [Mass/Vol] 0.75 mg/dL 0.70-1.30 [facility] Work Phone: Comment on above: The validity of the calculated GFR & GFRAA in patients over 70 years has not been determined. Clinical correlation is essential. Serum or plasma urea nitroge n measurement (mass/volume)on 01-05-2022 Urea nitrogen [Mass/Vol] 15 mg/dL 7-18 [facility] Work Phone: Thin prep Papanicolaou smear with manual screeningon 01-05-2022 Thin prep Papanicolaou smear with manual screening 8 5-15 [facility] Work Phone: Laboratory - Coagulationon 0 12-30-2021 INR Coag (Bld) [Relative time] 2.0 {INR} [facility] Work Phone: Comment on above: Critical Value > 4.0 Whole blood prothrombin time on 12-30-2021 PT Coag (Bld) [Time] 23.7 s 11.7-14.9 [facility] Work Phone: Basophil percentageon 2021 Chloride [Moles/Vol] 106 mmol/L 98-107 [facility] Work Phone: Glucose [Mass/Vol] 91 mg/dL 74-106 [facility] Work Phone: Potassium [Moles/Vol] 3.4 mmol/L 3.5-5.1 [facility] Work Phone: Sodium [Moles/Vol] 141 mmol/L 136-145 [facility] Work Phone: WBC (Bld) [#/Vol] 10.2 10*3/uL 4.4-11.0 [facility] Work Phone: Blood erythrocytes count (nu mber/volume)on 12-28-2021 RBC (Bld) [#/Vol] 4.22 10*6/uL 4.6-6.2 [facility] Work Phone: Blood hemoglobin measurement (mass/volume)on 12-28-2021 Hemoglobin (Bld) [Mass/Vol] 11.2 g/dL 13.0-16.5 [facility] Work Phone: Blood platelet mean volumeon 12-28-2021 Platelet mean volume (Bld) [Entitic vol] 10.1 fL 6.2-12.0 [facility] Work Phone: Determination of erythrocyte mean corpuscular volume (MCV)on 12-28-2021 MCV (RBC) [Entitic vol] 82.7 fL 80-94 [facility] Work Phone: Hematocrit Auto (Bld) [Volum e fraction]on 12-28-2021 Hematocrit (Bld) [Volume fraction] 34.9 % 40-54 [facility] Work Phone: Laboratory - Chemistry and C hemistry - challengeon 12-28-2021 CO2 [Moles/Vol] 30.0 mmol/L 21.0-32.0 [facility] Work Phone: Urea nitrogen/Creatinine [Mass ratio] 33.7 mg/mg 10-20 [facility] Work Phone: Laboratory - Hematology and Cell countson 12-28-2021 Erythrocyte distribution width (RBC) [Entitic vol] 49.1 fL 35.1-43.9 [facility] Work Phone: Erythrocyte distribution width (RBC) [Ratio] 16.5 % 11.6-14.6 [facility] Work Phone: MCH (RBC) [Entitic mass] 26.5 pg 27.0-32.0 [facility] Work Phone: MCHC Auto (RBC) [Mass/Vol]on 12-28-2021 MCHC (RBC) [Mass/Vol] 32.1 g/dL 32-36 [facility] Work Phone: No Panel Informationon 12-28 Estimated GFR (MDRD) Amer 174 mL/min >60 [facility] Work Phone: Comment on above: GFR Calc Estimated GFR (MDRD) Non-Af Amer 143 mL/min >60 [facility] Work Phone: Comment on above: Non- GFR Calc Platelets bldon 12-28-2021 Platelets (Bld) [#/Vol] 339 10*3/uL 150-450 [facility] Work Phone: Serum or plasma calcium oral urement (mass/volume)on 12-28-2021 Calcium [Mass/Vol] 8.6 mg/dL 8.5-10.1 [facility] Work Phone: Serum or plasma creatinine m easurement (mass/volume)on 12-28-2021 Creatinine [Mass/Vol] 0.59 mg/dL 0.70-1.30 [facility] Work Phone: Comment on above: The validity of the calculated GFR & GFRAA in patients over 70 years has not been determined. Clinical correlation is essential. Serum or plasma urea nitroge n measurement (mass/volume)on 12-28-2021 Urea nitrogen [Mass/Vol] 20 mg/dL 7-18 [facility] Work Phone: Thin prep Papanicolaou smear with manual screeningon 12-28-2021 Thin prep Papanicolaou smear with manual screening 5 5-15 [facility] Work Phone: CULTURE BLOODon 12-27-2021 Microscopic examination of blood, culture CULTURE BLOOD --> Status: F No growth at 5 days. Normal [facility] Comment on above: Performed By: #### C /BLD #### [employer] [address] [place] [address] Laboratory - Coagulationon 0 12-26-2021 INR Coag (Bld) [Relative time] 1.7 {INR} [facility] Work Phone: Comment on above: Critical Value > 4.0 Whole blood prothrombin time on 12-26-2021 PT Coag (Bld) [Time] 20.8 s 11.7-14.9 [facility] Work Phone: Basic Metabolic Panelon 12-05 Calcium [Mass/Vol] 8.8 mg/dL Normal 8.4-10.4 [facility] Comment on above: Performed By: #### C RP2, ESR, HEMDF, BMP3 ####[employer] [place] [address] Anion gap [Moles/Vol] 6 mmol/L Normal 3-13 [facility] Comment on above: Performed By: #### C RP2, ESR, HEMDF, BMP3 ####[address] [employer] [place] [address] CO2 [Moles/Vol] 27 mmol/L Normal 22-30 [facility] Comment on above: Performed By: #### C RP2, ESR, HEMDF, BMP3 ####[employer] [address] [place] [address] Glucose [Mass/Vol] 100 mg/dL Normal 70-100 [facility] Comment on above: Performed By: #### C RP2, ESR, HEMDF, BMP3 ####[address] [employer] [place] [address] Urea nitrogen [Mass/Vol] 18 mg/dL High 7-17 [facility] Comment on above: Performed By: #### C RP2, ESR, HEMDF, BMP3 ####[address] [employer] [place] [address] Creatinine [Mass/Vol] 0.73 mg/dL Normal 0.52-1.25 [facility] Comment on above: Performed By: #### C RP2, ESR, HEMDF, BMP3 ####[id number] [place], [place] eGFR OTHER > 90.0 Normal >60 [facility] Comment on above: Result Comment: KDIG O [...] By: #### C RP2, ESR, HEMDF, BMP3 ####[id number] [place], [place] GFR/1.73 sq M.predicted among blacks MDRD (S/P/Bld) [Vol rate/Area] mL/min/{1.73_m2} Normal >60 [facility] Comment on above: Performed By: #### C RP2, ESR, HEMDF, BMP3 ####[id number] [place], [place] Potassium [Moles/Vol] 3.7 mmol/L Normal 3.5-5.1 [facility] Comment on above: Performed By: #### C RP2, ESR, HEMDF, BMP3 ####[facility] [id number] [place], [place] Chloride [Moles/Vol] 106 mmol/L Normal 98-107 [facility] Comment on above: Performed By: #### C RP2, ESR, HEMDF, BMP3 ####[facility] [id number] [place], [place] Sodium [Moles/Vol] 139 mmol/L Normal 135-145 [facility] Comment on above: Performed By: #### C RP2, ESR, HEMDF, BMP3 ####[employer] [id number] [place] [address] Anion gap [Moles/Vol] 6 mmol/L 3 - 13 mmol/L [facility] Calcium [Mass/Vol] 8.8 mg/dL 8.4 - 10. 4 mg/dL [facility] Chloride [Moles/Vol] 106 mmol/L 98 - 10 7 mmol/L [facility] CO2 [Moles/Vol] 27 mmol/L 22 - 30 mmol/L [facility] Creatinine [Mass/Vol] 0.73 mg/dL 0.52 - 1.25 mg/dL [facility] eGFR mL/min 60 - P INF mL/min [facility] EGFR IF NonAfrican Armenian mL/min 60 - PINF mL/min [facility] Comment [...] 2021 Basophil percentage 25-50 SEEN /hpf 0-5 [facility] Work Phone: Chloride [Moles/Vol] 106 mmol/L 98-[address] [facility] Work Phone: Glucose [Mass/Vol] 93 mg/dL 74-106 [place] [facility] Work Phone: [phone] Potassium [Moles/Vol] 3.5 mmol/L 3.5-5.1 [employer] [facility] Work Phone: Sodium [Moles/Vol] 140 mmol/L 136-145 [facility] [facility] Work Phone: WBC (Bld) [#/Vol] 9.6 10*3/uL 4.4-11.0 [facility] Work Phone: Bilirubin Test strip Ql (U)o n 12-22-2021 Bilirubin Ql (U) Negative Negative [facility] Work Phone: Blood erythrocytes count (nu mber/volume)on 12-22-2021 RBC (Bld) [#/Vol] 4.34 10*6/uL 4.6-6.2 [place] [facility] Work Phone: Blood hemoglobin measurement (mass/volume)on 12-22-2021 Hemoglobin (Bld) [Mass/Vol] 11.5 g/dL 13.0-16.5 [facility] Work Phone: Blood platelet mean volumeon 12-22-2021 Platelet mean volume (Bld) [Entitic vol] 10.8 fL 6.2-12.0 [facility] Work Phone: C-Reactive Proteinon 022 CRP [Mass/Vol] 27.2 mg/L High 0.0-9.9 [facility] [employer] Comment on above: Result Comment: . Performed By: #### C RP2, ESR, HEMDF, BMP3 ####[employer] [id number] [place] [address] CRP [Mass/Vol] 27.2 mg/L High 0 - 9.9 mg/L [facility] Comment on above: . CBC with [...] - 10.7 10*3/uL [facility] Test Performed by [facility], [address] [place] [id number] [facility] COVID-19, Flu A/B, and RSV C omboon 12-22-2021 Influenza A by PCR Not detected [facility] A Influenza B by PCR Not detected [facility] A RSV PCR Not Detected. Expected Result: Not Detected _ Method: Real-time, RT-PCR This assay was developed by [employer] and distributed under an Emergency Use Authorization (EUA) granted by the FDA for the qualitative detection of nucleic acids from SARS-CoV-2, Influenza A, Influenza B, and Respiratory Syncytial Virus. Provider and patient fact sheets can be found at https://www.fda.gov/media /195168/download and https://www.fda.gov/media /018627/download. [facility] SARS-CoV-2 (COVID-19) RNA MEGAN+probe Ql (Unsp spec) Not detected [facility] Test Performed by [facility], [address] [place] [id number] [facility] CR Foot Complete 3+ Views Le fton 12-22-2021 CR Foot Complete 3+ Views Left Patient Name: ANDREW SIFUENTES Diagnostic Radiology ACCESSION EXAM DATE/TIME PROCEDURE ORDERING PROVIDER [id number] 12/22/2021 00:09 EDT CR Foot Complete 3+ SANDY HIDALGO JOHN M Views Left CPT code 12004 Reason For Exam (CR Foot Complete 3+ [...] Transcribed Date and Time: 12/22/2021 0:21 Normal [facility] Calcium oxalate crystals det ection in urine sediment by light microscopyon 12-22-2021 Calcium oxalate crystals LM Ql (Urine sed) 1+ /hpf [facility] Work Phone: Determination of erythrocyte mean corpuscular volume (MCV)on 12-22-2021 MCV (RBC) [Entitic vol] 84.3 fL 80-94 [facility] Work Phone: ED Provider Noteon ED Provider [...] leg for a while. According to EMS residential staff completed x-ray of the lower extremity and there was concern for osteomyelitis hence transferring patient to the hospital. Patient states this time the wounds on the left lower extremity for extended period of time. He denies fevers or chills. Patient states residential staff have been taking care of the wound for him. Focused exam: Blood pressure 108/67, pulse 77, temperature 97.9 ?F (36.6 ?C), temperature source Oral, resp. rate 16, height 5' 9 (1.753 m), weight 79.4 kg (175 lb), SpO2 96 %. [id number] in no acute distress. Alert and oriented [...] are mis-transcribed.) Sharon Gonzalez MD Acute Care [facility] Sharon Gonzalez MD 12/22/21 0305 [facility] ED Provider Note [facility] EMERGENCY DEPT EMERGENCY DEPARTMENT ENCOUNTER Pt Name: Andrew Sifuentes Birthdate 1950 Date of evaluation: 12/21/2021 Provider: SANIA Lou CHIEF COMPLAINT Chief Complaint Patient presents with Osteomyelitis [facility], facility did xrays on left lower leg and and have concerns for possible osteomyelitis A&Ox2 to self and place, stated year 2022 [facility] HISTORY OF PRESENT ILLNESS (Location/Symptom, Timing/Onset, Context/Setting, Quality,Duration, Modifying Factors, Severity) Note limiting factors. HPI I have seen this patient With supervising physician Does this patient come from an ECF, SNF, Rehab, Residential or other Congregate setting: no (If yes to above patient needs a Covid-19 test) Andrew iSfuentes is a 71 y.o. male who presents [...] Hemorrhoids Hydrocephalus, adult (HCC) Kidney stone Neuropathy [employer] (ventriculoperitoneal) shunt status SURGICAL HISTORY Past Surgical [...] use: No Sexual activity: Not Currently SCREENINGS [place] Coma Scale Eye Opening: Spontaneous Best Verbal Response: Confused Best Motor Response: Obeys commands [place] Coma Scale Score: 14 Patient symptoms are [...] soft. Tenderness: (more content not included)... Normal [facility] Hematocrit Auto (Bld) [Volum e fraction]on 12-22-2021 Hematocrit (Bld) [Volume fraction] 36.6 % 40-54 [facility] Work Phone: Hemogram w/ Autodiffon 12-22 Abs Baso Cnt 0.1 10*3/uL Normal 0.0-0.2 [facility] [facility] Comment on above: Performed By: #### C RP2, ESR, HEMDF, BMP3 ####[facility] [address] [place] [address] Abs Neutrophile Cnt 5.9 10*3/uL Normal 1.8-7.0 [facility] [employer] Comment on above: Performed By: #### C RP2, ESR, HEMDF, BMP3 ####[address] Basophils/100 WBC (Bld) 0.7 % Normal 0.0-2.0 [facility] Comment on above: Performed By: #### C RP2, ESR, HEMDF, BMP3 ####[id number] [place], [place] Eosinophils (Bld) [#/Vol] 0.2 10*3/uL Normal 0.0-0.5 [facility] Comment on above: Performed By: #### C RP2, ESR, HEMDF, BMP3 ####[address] Eosinophils/100 WBC (Bld) 2.3 % Normal 1.0-6.0 [facility] Comment on above: Performed By: #### C RP2, ESR, HEMDF, BMP3 ####[id number] [place], [place] Erythrocyte distribution width (RBC) [Ratio] 17.5 % High 11.5-14.5 [facility] Comment on above: Performed By: #### C RP2, ESR, HEMDF, BMP3 ####[address] Granulocytes/100 WBC (Bld) 57.8 % Normal 40.0-80.0 [facility] Comment on above: Performed By: #### C RP2, ESR, HEMDF, BMP3 ####[address] Hematocrit (Bld) [Volume fraction] 33.3 % Low 40.0-52.0 [facility] Comment on above: Performed By: #### C RP2, ESR, HEMDF, BMP3 ####[id number] [place], [place] Hemoglobin (Bld) [Mass/Vol] 11.0 g/dL Low 13.0-18.0 [facility] Comment on above: Performed By: #### C RP2, ESR, HEMDF, BMP3 ####[address] Lymphocytes (Bld) [#/Vol] 3.3 10*3/uL Normal 1.0-4.3 [facility] Comment on above: Performed By: #### C RP2, ESR, HEMDF, BMP3 ####[id number] [place], [place] Lymphocytes/100 WBC (Bld) 33.0 % Normal 20.0-40.0 [facility] Comment on above: Performed By: #### C RP2, ESR, HEMDF, BMP3 ####[address] MCH (RBC) [Entitic mass] 26.5 pg Normal 26.0-34.0 [facility] Comment on above: Performed By: #### C RP2, ESR, HEMDF, BMP3 ####[address] MCHC 33.1 % Normal 32.0-36.0 [facility] Comment on above: Performed By: #### C RP2, ESR, HEMDF, BMP3 ####[id number] [place], [place] MCV (RBC) [Entitic vol] 80.2 fL Normal 80.0-98.0 [facility] Comment on above: Performed By: #### C RP2, ESR, HEMDF, BMP3 ####[address] Monocytes (Bld) [#/Vol] 0.6 10*3/uL Normal 0.0-0.8 [facility] Comment on above: Performed By: #### C RP2, ESR, HEMDF, BMP3 ####[id number] [place], [place] Monocytes/100 WBC (Bld) 6.2 % Normal 2.0-10.0 [facility] Comment on above: Performed By: #### C RP2, ESR, HEMDF, BMP3 ####[address] Platelet mean volume (Bld) [Entitic vol] 8.0 fL Normal 7.4-12.4 [facility] Comment on above: Result Comment: MPV is a calculated measurement using platelet volume ratio. Performed By: #### C RP2, ESR, HEMDF, BMP3 ####[facility] [id number] [place] Platelets (Bld) [#/Vol] 368 10*3/uL Normal 140-440 [facility] Comment on above: Performed By: #### C RP2, ESR, HEMDF, BMP3 ####[id number] [place], [place] RBC (Bld) [#/Vol] 4.15 10*6/uL Low 4.40-5.90 [facility] Comment on above: Performed By: #### C RP2, ESR, HEMDF, BMP3 ####[facility] [id number] [place], [place] WBC (Bld) [#/Vol] 10.1 10*3/uL Normal 3.6-10.7 [facility] Comment on above: Performed By: #### C RP2, ESR, HEMDF, BMP3 ####[facility] [address] [place] Ketones Test strip Ql (U)on 12-22-2021 Ketones Ql (U) Negative Negative [facility] Work Phone: Laboratory - Chemistry and C hemistry - challengeon 12-22-2021 CO2 [Moles/Vol] 27.0 mmol/L 21.0-32.0 [facility] Work Phone: Urea nitrogen/Creatinine [Mass ratio] 22.5 mg/mg 10-20 [facility] Work Phone: Laboratory - Hematology and Cell countson 12-22-2021 Erythrocyte distribution width (RBC) [Entitic vol] 49.1 fL 35.1-43.9 [facility] Work Phone: Erythrocyte distribution width (RBC) [Ratio] 16.1 % 11.6-14.6 [facility] Work Phone: MCH (RBC) [Entitic mass] 26.5 pg 27.0-32.0 [facility] Work Phone: MCHC Auto (RBC) [Mass/Vol]on 12-22-2021 MCHC (RBC) [Mass/Vol] 31.4 g/dL 32-36 [facility] Work Phone: Mucus LM Ql (Urine sed)on Mucus Ql (Urine sed) 0 SEEN /hpf [facility] Work Phone: Nitrite Test strip Ql (U)on 12-22-2021 Nitrite Ql (U) Positive Negative [facility] Work Phone: No Panel Informationon 12-22 Estimated GFR (MDRD) Amer 152 mL/min >60 [facility] Work Phone: Comment on above: GFR Calc Estimated GFR (MDRD) Non-Af Amer 125 mL/min >60 [facility] Work Phone: Comment on above: Non- GFR Calc Interpretation and review of laboratory results Abnormal [facility] Test Performed by [address] [address] [facility] Platelets bldon 12-22-2021 Platelets (Bld) [#/Vol] 317 10*3/uL 150-450 [facility] Work Phone: Protein Test strip Ql (U)on 12-22-2021 Protein Ql (U) 30 mg/dl Negative [facility] Work Phone: SARS-CoV-2, Flu A/B and RSVo n 12-22-2021 SARS-CoV-2 (COVID-19) RNA MEGAN+probe Ql (Unsp spec) SARS-CoV-2 --> Status: F Not Detected. Flu A PCR --> Status: F Not Detected. Flu B PCR --> Status: F Not Detected. RSV PCR --> Status: F Not Detected. Expected Result: Not Detected _ Method: Real-time, RT-PCR This assay was developed by [employer] and distributed under an Emergency Use Authorization (EUA) granted by the FDA for the qualitative detection of nucleic acids from SARS-CoV-2, Influenza A, Influenza B, and Respiratory Syncytial Virus. Provider and patient fact sheets can be found at https://www.fda.gov/media /719871/download and https://www.fda.gov/media /248451/download. Expected Result: Not Detected _ Method: Real-time, RT-PCR This assay was developed by [employer] and distributed under an Emergency Use Authorization (EUA) granted by the FDA for the qualitative detection of nucleic acids from SARS-CoV-2, Influenza A, Influenza B, and Respiratory Syncytial Virus. Provider and patient fact sheets can be found at https://www.fda.gov/media /812193/download and https://www.fda.gov/media /946590/download. Normal [facility] Comment on above: Performed By: #### C VFLR ####[id number] [place] [address], [id number] Sed Rateon 12-22-2021 Sed Rate 48 mm/h High 0-10 [facility] Comment on above: Performed By: #### C RP2, ESR, HEMDF, BMP3 ####[address] [place] [address] Sedimentation Rateon 022 Interpretation and review of laboratory results Abnormal [facility] Sed Rate 48 mm/h High 0 - 10 mm/h [facility] Test Performed by [facility], [address] [place] [address] [facility] Serum or plasma calcium oral urement (mass/volume)on 12-22-2021 Calcium [Mass/Vol] 8.6 mg/dL 8.5-10.1 [place] [facility] Work Phone: Serum or plasma creatinine m easurement (mass/volume)on 12-22-2021 Creatinine [Mass/Vol] 0.67 mg/dL 0.70-1.30 [facility] [facility] Work Phone: Comment on above: The validity of the calculated GFR & GFRAA in patients over 70 years has not been determined. Clinical correlation is essential. Serum or plasma urea nitroge n measurement (mass/volume)on 12-22-2021 Urea nitrogen [Mass/Vol] 15 mg/dL - [facility] Work Phone: Squamous epithelial cells de tection in urine sediment by light microscopyon 12-22-2021 Epithelial cells.squamous LM Ql (Urine sed) 0-5 SEEN /hpf 0-5 [facility] Work Phone: Thin prep Papanicolaou smear with manual screeningon 12-22-2021 Thin prep Papanicolaou smear with manual screening 7 5-15 [facility] Work Phone: Urine blood detectionon 12-05 RBC Ql (U) 150 /ul Negative [facility] Work Phone: RBC Ql (U) 10-25 SEEN /hpf 0-5 [facility] Work Phone: Urine clarityon 12-22-2021 Clarity (U) Sl. Cloudy Clear [facility] Work Phone: Urine color determinationon 12-22-2021 Color (U) Yellow Yellow [facility] Work Phone: Urine glucose detectionon Glucose Ql (U) Normal mg/dl Normal [facility] Work Phone: Urine leukocyte esterase det ection by dipstickon 12-22-2021 Leukocyte esterase Test strip Ql (U) 500 /ul Negative [facility] Work Phone: Urine pHon 12-22-2021 pH (U) 6.0 [pH] 5.0 - 8.0 [facility] Work Phone: Urine sediment bacteria coun t by microscopy (number/high power field)on 12-22-2021 Bacteria LM.HPF (Urine sed) [#/Area] 2 /[HPF] None Seen [facility] Work Phone: Urine specific gravity measu rementon 12-22-2021 Specific gravity (U) [Rel density] 1.020 1.002-1.030 [facility] Work Phone: Urobilinogen Auto test strip Ql (U)on 12-22-2021 Urobilinogen Ql (U) Normal mg/dl Normal [facility] Work Phone: XR FOOT LEFT (MIN 3 VIEWS)on 12-22-2021 Patient Name: ANDREW SIFUENTES Diagnostic Radiology ACCESSION EXAM DATE/TIME PROCEDURE ORDERING PROVIDER [id number] 12/22/2021 00:09 EDT CR Foot Complete 3+ SANDY HIDALGO JOHN M Views Left CPT code 53308 Reason For Exam (CR Foot Complete 3+ [...] JEFFREY Transcribed Date and Time: 12/22/2021 0:21 [facility] Albert Solano MD - 12/22/2021 Patient Name: ANDREW SIFUENTES Diagnostic Radiology ACCESSION EXAM DATE/TIME PROCEDURE ORDERING PROVIDER [id number] 12/22/2021 00:09 EDT CR Foot Complete 3+ SANDY HIDALGO JOHN M Views Left CPT code 01839 Reason For Exam (CR Foot Complete 3+ [...] Transcribed Date and Time: 12/22/2021 0:21 [facility] Work Phone: Radiology Study observation (narrative) [facility] Work Phone: XR FOOT LEFT (MIN 3 VIEWS)Or dered By: Albert Solano on 12-22-2021 [facility] Work Phone: Basophil percentageon 2021 Chloride [Moles/Vol] 103 mmol/L 98-[address] [facility] Work Phone: [phone] Glucose [Mass/Vol] 92 mg/dL 74-106 [place] [facility] Work Phone: Potassium [Moles/Vol] 3.5 mmol/L 3.5-5.1 [place] [facility] Work Phone: Sodium [Moles/Vol] 138 mmol/L 136-145 [place] [facility] Work Phone: WBC (Bld) [#/Vol] 11.2 10*3/uL 4.4-11.0 [place] [facility] Work Phone: Blood erythrocytes count (nu mber/volume)on 12-19-2021 RBC (Bld) [#/Vol] 4.50 10*6/uL 4.6-6.2 [facility] Work Phone: Blood hemoglobin measurement (mass/volume)on 12-19-2021 Hemoglobin (Bld) [Mass/Vol] 12.2 g/dL 13.0-16.5 [facility] Work Phone: Blood platelet mean volumeon 12-19-2021 Platelet mean volume (Bld) [Entitic vol] 11.3 fL 6.2-12.0 [facility] Work Phone: Determination of erythrocyte mean corpuscular volume (MCV)on 12-19-2021 MCV (RBC) [Entitic vol] 85.6 fL 80-94 [facility] Work Phone: Hematocrit Auto (Bld) [Volum e fraction]on 12-19-2021 Hematocrit (Bld) [Volume fraction] 38.5 % 40-54 [facility] Work Phone: Laboratory - Chemistry and C hemistry - challengeon 12-19-2021 CO2 [Moles/Vol] 30.0 mmol/L 21.0-32.0 [facility] Work Phone: Urea nitrogen/Creatinine [Mass ratio] 27.1 mg/mg 10-20 [facility] Work Phone: Laboratory - Hematology and Cell countson 12-19-2021 Erythrocyte distribution width (RBC) [Entitic vol] 50.5 fL 35.1-43.9 [facility] Work Phone: Erythrocyte distribution width (RBC) [Ratio] 16.0 % 11.6-14.6 [facility] Work Phone: MCH (RBC) [Entitic mass] 27.1 pg 27.0-32.0 [facility] Work Phone: MCHC Auto (RBC) [Mass/Vol]on 12-19-2021 MCHC (RBC) [Mass/Vol] 31.7 g/dL 32-36 [facility]: No Panel Informationon 12-19 Estimated GFR (MDRD) Amer 153 mL/min >60 [facility] Work Phone: Comment on above: GFR Calc Estimated GFR (MDRD) Non-Af Amer 126 mL/min >60 [facility] Work Phone: Comment on above: Non- GFR Calc Platelets bldon 12-19-2021 Platelets (Bld) [#/Vol] 363 10*3/uL 150-450 [facility] Work Phone: Serum or plasma calcium oral urement (mass/volume)on 12-19-2021 Calcium [Mass/Vol] 9.5 mg/dL 8.5-10.1 [facility] Work Phone: Serum or plasma creatinine m easurement (mass/volume)on 12-19-2021 Creatinine [Mass/Vol] 0.66 mg/dL 0.70-1.30 [facility] Work Phone: Comment on above: The validity of the calculated GFR & GFRAA in patients over 70 years has not been determined. Clinical correlation is essential. Serum or plasma urea nitroge n measurement (mass/volume)on 12-19-2021 Urea nitrogen [Mass/Vol] 18 mg/dL 7-18 [facility] Work Phone: Thin prep Papanicolaou smear with manual screeningon 12-19-2021 Thin prep Papanicolaou smear with manual screening 5 5-15 [facility] Work Phone: Laboratory - Coagulationon 0 12-12-2021 INR Coag (Bld) [Relative time] 2.0 {INR} [facility] Work Phone: Comment on above: Critical Value > 4.0 Whole blood prothrombin time on 12-12-2021 PT Coag (Bld) [Time] 23.9 s 11.7-14.9 [facility] Work Phone: ANES POSTPROC EVALon 022 ANES POSTPROC EVAL Normal [facility] Laboratory - Coagulationon 0 12-08-2021 INR Coag (Bld) [Relative time] 1.8 {INR} [facility] Work Phone: Comment on above: Critical Value > 4.0 Whole blood prothrombin time on 12-08-2021 PT Coag (Bld) [Time] 21.0 s 11.7-14.9 [facility] Work Phone: [phone] Absolute lymphocyte counton 12-05-2021 Lymphocytes Auto (Unsp spec) [#/Vol] 2.97 10*3/uL 0.83-4.51 [facility] Work Phone: Basophil percentageon 2021 Basophils/100 WBC (Bld) 0.6 % 0-1 [facility] Work Phone: Chloride [Moles/Vol] 106 mmol/L 98-107 [facility] Work Phone: Eosinophils/100 WBC (Bld) 2.3 % 0-5 [facility] Work Phone: Glucose [Mass/Vol] 107 mg/dL 74-106 [facility] Work Phone: Comment on above: Fasting Glucose resu lt from 100 to 125 mg/dL suggests IMPAIRED HOMEOSTASIS per A.D.A. criteria. Neutrophils (Bld) [#/Vol] 5.6 10*3/uL 2.0-7.7 [facility] Work Phone: Neutrophils/100 WBC (Bld) 60.2 % 47-70 [facility] Work Phone: [phone] Potassium [Moles/Vol] 3.4 mmol/L 3.5-5.1 [facility] Work Phone: Sodium [Moles/Vol] 139 mmol/L 136-145 [facility] Work Phone: WBC (Bld) [#/Vol] 9.3 10*3/uL 4.4-11.0 [facility] Work Phone: Blood erythrocytes count (nu mber/volume)on 08-01-2022 RBC (Bld) [#/Vol] 4.49 10*6/uL 4.6-6.2 [facility] Work Phone: Blood hemoglobin measurement (mass/volume)on 12-05-2021 Hemoglobin (Bld) [Mass/Vol] 12.1 g/dL 13.0-16.5 [facility] Work Phone: Blood lymphocytes/100 leukoc yteson 12-05-2021 Lymphocytes/100 WBC (Bld) 32.0 % 19-41 [facility] Work Phone: Blood monocytes/100 leukocyt eson 12-05-2021 Monocytes/100 WBC (Bld) 4.7 % 0-10 [facility] Work Phone: Blood platelet mean volumeon 12-05-2021 Platelet mean volume (Bld) [Entitic vol] 10.8 fL 6.2-12.0 [facility] Work Phone: Determination of erythrocyte mean corpuscular volume (MCV)on 12-05-2021 MCV (RBC) [Entitic vol] 84.9 fL 80-94 [facility] Work Phone: Hematocrit Auto (Bld) [Volum e fraction]on 12-05-2021 Hematocrit (Bld) [Volume fraction] 38.1 % 40-54 [facility] Work Phone: INR in Blood by Coagulation assayon 12-05-2021 INR Coag (Bld) [Relative time] 1.8 {INR} [facility] Work Phone: Laboratory - Chemistry and C hemistry - challengeon 12-05-2021 CO2 [Moles/Vol] 29.0 mmol/L 21.0-32.0 [facility] Work Phone: Urea nitrogen/Creatinine [Mass ratio] 25.4 mg/mg 10-20 [facility] Work Phone: Laboratory - Coagulationon 0 12-05-2021 PT Coag (PPP) [Time] 20.5 s 11.7-14.9 [facility] Work Phone: Laboratory - Hematology and Cell countson 12-05-2021 Erythrocyte distribution width (RBC) [Entitic vol] 48.5 fL 35.1-43.9 [facility] Work Phone: Erythrocyte distribution width (RBC) [Ratio] 15.7 % 11.6-14.6 [facility] Work Phone: Immature granulocytes/100 WBC (Bld) 0.200 % 0.0-0.9 [facility] Work Phone: Comment on above: IG% - Immature Granu locytes (promyelocytes, myelocytes and metamyelocytes) > 1% indicates that a LEFT SHIFT is Present. MCH (RBC) [Entitic mass] 26.9 pg 27.0-32.0 [facility] Work Phone: Nucleated RBC/100 WBC (Bld) [Ratio] 0 % 0-5 [facility] Work Phone: MCHC Auto (RBC) [Mass/Vol]on 12-05-2021 MCHC (RBC) [Mass/Vol] 31.8 g/dL 32-36 [facility] Work Phone: No Panel Informationon 12-05 Estimated GFR (MDRD) Amer 133 mL/min >60 [facility] Work Phone: Comment on above: GFR Calc Estimated GFR (MDRD) Non-Af Amer 110 mL/min >60 [facility] Work Phone: Comment on above: Non- GFR Calc Platelets bldon 12-05-2021 Platelets (Bld) [#/Vol] 363 10*3/uL 150-450 [facility] Work Phone: Serum or plasma calcium oral urement (mass/volume)on 12-05-2021 Calcium [Mass/Vol] 9.4 mg/dL 8.5-10.1 [facility] Work Phone: Serum or plasma creatinine m easurement (mass/volume)on 12-05-2021 Creatinine [Mass/Vol] 0.75 mg/dL 0.70-1.30 [facility] Work Phone: Comment on above: The validity of the calculated GFR & GFRAA in patients over 70 years has not been determined. Clinical correlation is essential. Serum or plasma urea nitroge n measurement (mass/volume)on 12-05-2021 Urea nitrogen [Mass/Vol] 19 mg/dL 7-18 [facility] Work Phone: Thin prep Papanicolaou smear with manual screeningon 12-05-2021 Thin prep Papanicolaou smear with manual screening 4 5-15 [facility] Work Phone: Basophil percentageon 2021 Basophil percentage 0 SEEN /hpf 0-5 [facility] Work Phone: Chloride [Moles/Vol] 104 mmol/L 98-107 [facility] Work Phone: Glucose [Mass/Vol] 90 mg/dL 74-106 [facility] Work Phone: Potassium [Moles/Vol] 3.7 mmol/L 3.5-5.1 [facility] Work Phone: Comment on above: Slight Hemolysis, Re sult may be falsely increased. Sodium [Moles/Vol] 138 mmol/L 136-145 [facility] Work Phone: WBC (Bld) [#/Vol] 10.7 10*3/uL 4.4-11.0 [facility] Work Phone: Bilirubin Test strip Ql (U)o n 12-01-2021 Bilirubin Ql (U) Negative Negative [facility] Work Phone: Blood erythrocytes count (nu mber/volume)on 12-01-2021 RBC (Bld) [#/Vol] 4.33 10*6/uL 4.6-6.2 [facility] Work Phone: Blood hemoglobin measurement (mass/volume)on 12-01-2021 Hemoglobin (Bld) [Mass/Vol] 11.6 g/dL 13.0-16.5 [facility] Work Phone: Blood platelet mean volumeon 12-01-2021 Platelet mean volume (Bld) [Entitic vol] 11.2 fL 6.2-12.0 [facility] Work Phone: Determination of erythrocyte mean corpuscular volume (MCV)on 12-01-2021 MCV (RBC) [Entitic vol] 85.2 fL 80-94 [facility] Work Phone: Hematocrit Auto (Bld) [Volum e fraction]on 12-01-2021 Hematocrit (Bld) [Volume fraction] 36.9 % 40-54 [facility] Work Phone: Ketones Test strip Ql (U)on 12-01-2021 Ketones Ql (U) Negative Negative [facility] Work Phone: Laboratory - Chemistry and C hemistry - challengeon 12-01-2021 CO2 [Moles/Vol] 27.0 mmol/L 21.0-32.0 [facility] Work Phone: Urea nitrogen/Creatinine [Mass ratio] 24.0 mg/mg 10-20 [facility] Work Phone: Laboratory - Coagulationon 0 12-01-2021 INR Coag (Bld) [Relative time] 1.6 {INR} [facility] Work Phone: Comment on above: Critical Value > 4.0 Laboratory - Hematology and Cell countson 12-01-2021 Erythrocyte distribution width (RBC) [Entitic vol] 47.9 fL 35.1-43.9 [facility] Work Phone: Erythrocyte distribution width (RBC) [Ratio] 15.5 % 11.6-14.6 [facility] Work Phone: MCH (RBC) [Entitic mass] 26.8 pg 27.0-32.0 [facility] Work Phone: MCHC Auto (RBC) [Mass/Vol]on 12-01-2021 MCHC (RBC) [Mass/Vol] 31.4 g/dL 32-36 [facility] Work Phone: Mucus LM Ql (Urine sed)on Mucus Ql (Urine sed) 0 SEEN /hpf [facility] Work Phone: Nitrite Test strip Ql (U)on 12-01-2021 Nitrite Ql (U) Negative Negative [facility] Work Phone: No Panel Informationon 12-01 Estimated GFR (MDRD) Amer 133 mL/min >60 [facility] Work Phone: Comment on above: GFR Calc Estimated GFR (MDRD) Non-Af Amer 110 mL/min >60 [facility] Work Phone: Comment on above: Non- GFR Calc Platelets bldon 12-01-2021 Platelets (Bld) [#/Vol] 336 10*3/uL 150-450 [facility] Work Phone: Protein Test strip Ql (U)on 12-01-2021 Protein Ql (U) 30 mg/dl Negative [facility] Work Phone: Serum or plasma calcium oral urement (mass/volume)on 12-01-2021 Calcium [Mass/Vol] 9.4 mg/dL 8.5-10.1 [facility] Work Phone: Serum or plasma creatinine m easurement (mass/volume)on 12-01-2021 Creatinine [Mass/Vol] 0.75 mg/dL 0.70-1.30 [facility] Work Phone: Comment on above: The validity of the calculated GFR & GFRAA in patients over 70 years has not been determined. Clinical correlation is essential. Serum or plasma urea nitroge n measurement (mass/volume)on 12-01-2021 Urea nitrogen [Mass/Vol] 18 mg/dL 7-18 [facility] Work Phone: Squamous epithelial cells de tection in urine sediment by light microscopyon 12-01-2021 Epithelial cells.squamous LM Ql (Urine sed) 0-5 SEEN /hpf 0-5 [facility] Work Phone: Thin prep Papanicolaou smear with manual screeningon 12-01-2021 Thin prep Papanicolaou smear with manual screening 7 5-15 [facility] Work Phone: Urine blood detectionon 11-05 RBC Ql (U) Negative Negative [facility] Work Phone: RBC Ql (U) 0 SEEN /hpf 0-5 [facility] Work Phone: Urine clarityon 12-01-2021 Clarity (U) Clear Clear [facility] Work Phone: Urine color determinationon 12-01-2021 Color (U) Yellow Yellow [facility] Work Phone: Urine glucose detectionon Glucose Ql (U) 50 mg/dl Normal [facility] Work Phone: Urine leukocyte esterase det ection by dipstickon 12-01-2021 Leukocyte esterase Test strip Ql (U) Negative Negative [facility] Work Phone: Urine pHon 12-01-2021 pH (U) 6.0 [pH] 5.0 - 8.0 [facility] Work Phone: Urine sediment bacteria coun t by microscopy (number/high power field)on 12-01-2021 Bacteria LM.HPF (Urine sed) [#/Area] 0 /[HPF] None Seen [facility] Work Phone: Urine sediment yeast count b y microscopy (number/high powered field)on 12-01-2021 Yeast LM.HPF (Urine sed) [#/Area] 2 /[HPF] None Seen [facility] Work Phone: Urine specific gravity measu rementon 12-01-2021 Specific gravity (U) [Rel density] 1.010 1.002-1.030 [facility] Work Phone: Urobilinogen Auto test strip Ql (U)on 12-01-2021 Urobilinogen Ql (U) Normal mg/dl Normal [facility] Work Phone: Whole blood prothrombin time on 12-01-2021 PT Coag (Bld) [Time] 19.8 s 11.7-14.9 [facility] Work Phone: Laboratory - Coagulationon 0 11-28-2021 INR Coag (Bld) [Relative time] 1.6 {INR} [facility] Work Phone: Comment on above: Critical Value > 4.0 Whole blood prothrombin time on 11-28-2021 PT Coag (Bld) [Time] 18.8 s 11.7-14.9 [facility] Work Phone: INR in Blood by Coagulation assayon 11-23-2021 INR Coag (Bld) [Relative time] 2.7 {INR} [facility] Work Phone: Laboratory - Coagulationon 0 11-23-2021 PT Coag (PPP) [Time] 28.0 s 11.7-14.9 [facility] Work Phone: Laboratory - Coagulationon 0 11-22-2021 INR Coag (Bld) [Relative time] 3.8 {INR} [facility] Work Phone: Comment on above: Critical Value > 4.0 Whole blood prothrombin time on 11-22-2021 PT Coag (Bld) [Time] 42.8 s 11.7-14.9 [facility] Work Phone: INR in Blood by Coagulation assayon 11-21-2021 INR Coag (Bld) [Relative time] 3.9 {INR} [facility] Work Phone: Laboratory - Coagulationon 0 11-21-2021 PT Coag (PPP) [Time] 37.7 s 11.7-14.9 [facility] Work Phone: Whole blood prothrombin time on 11-21-2021 PT Coag (Bld) [Time] 45.5 s 11.7-14.9 [facility] Work Phone: INR in Blood by Coagulation assayon 11-14-2021 INR Coag (Bld) [Relative time] 3.1 {INR} [facility] Work Phone: Laboratory - Coagulationon 0 11-14-2021 PT Coag (PPP) [Time] 31.4 s 11.7-14.9 [facility] Work Phone: Laboratory - Coagulationon 0 11-08-2021 INR Coag (Bld) [Relative time] 2.5 {INR} [facility] Work Phone: Comment on above: Critical Value > 4.0 Whole blood prothrombin time on 11-08-2021 PT Coag (Bld) [Time] 29.0 s 11.7-14.9 [facility] Work Phone: Basophil percentageon 2021 Chloride [Moles/Vol] 106 mmol/L 98-107 [facility] Work Phone: Glucose [Mass/Vol] 100 mg/dL 74-106 [facility] Work Phone: Comment on above: Fasting Glucose resu lt from 100 to 125 mg/dL suggests IMPAIRED HOMEOSTASIS per A.D.A. criteria. Potassium [Moles/Vol] 3.7 mmol/L 3.5-5.1 [facility] Work Phone: Sodium [Moles/Vol] 140 mmol/L 136-145 [facility] Work Phone: WBC (Bld) [#/Vol] 8.8 10*3/uL 4.4-11.0 [facility] Work Phone: Blood erythrocytes count (nu mber/volume)on 11-04-2021 RBC (Bld) [#/Vol] 4.05 10*6/uL 4.6-6.2 [facility] Work Phone: Blood hemoglobin measurement (mass/volume)on 11-04-2021 Hemoglobin (Bld) [Mass/Vol] 11.1 g/dL 13.0-16.5 [facility] Work Phone: Blood platelet mean volumeon 11-04-2021 Platelet mean volume (Bld) [Entitic vol] 10.8 fL 6.2-12.0 [facility] Work Phone: Determination of erythrocyte mean corpuscular volume (MCV)on 11-04-2021 MCV (RBC) [Entitic vol] 86.9 fL 80-94 [facility] Work Phone: Hematocrit Auto (Bld) [Volum e fraction]on 11-04-2021 Hematocrit (Bld) [Volume fraction] 35.2 % 40-54 [facility] Work Phone: INR in Blood by Coagulation assayon 11-04-2021 INR Coag (Bld) [Relative time] 1.8 {INR} [facility] Work Phone: Laboratory - Chemistry and C hemistry - challengeon 11-04-2021 CO2 [Moles/Vol] 26.0 mmol/L 21.0-32.0 [facility] Work Phone: Urea nitrogen/Creatinine [Mass ratio] 18.3 mg/mg 10-20 [facility] Work Phone: Laboratory - Coagulationon 0 11-04-2021 PT Coag (PPP) [Time] 20.4 s 11.7-14.9 [facility] Work Phone: Laboratory - Hematology and Cell countson 11-04-2021 Erythrocyte distribution width (RBC) [Entitic vol] 48.1 fL 35.1-43.9 [facility] Work Phone: Erythrocyte distribution width (RBC) [Ratio] 15.0 % 11.6-14.6 [facility] Work Phone: MCH (RBC) [Entitic mass] 27.4 pg 27.0-32.0 [facility] Work Phone: MCHC Auto (RBC) [Mass/Vol]on 11-04-2021 MCHC (RBC) [Mass/Vol] 31.5 g/dL 32-36 [facility] Work Phone: No Panel Informationon 11-04 D-Dimer Quantitative (PE/DVT) 0.56 FEU/ug/m 0.27-0.49 [facility] Work Phone: Comment on above: D-Dimer ELEVATED (>0 .49): Additional studies and clinicalassessments are indicated to conclude diagnosis of:Deep Vein Thrombosis (DVT) or Pulmonary Embolism (PE) Estimated GFR (MDRD) Amer 155 mL/min >60 [facility] Work Phone: Comment on above: GFR Calc Estimated GFR (MDRD) Non-Af Amer 128 mL/min >60 [facility] Work Phone: Comment on above: Non- GFR Calc Troponin I High Sensitivity 11 pg/mL 3.0-78.0 [facility] Work Phone: Comment on above: Please Note: New Fadumo t Units and Gender Specific Reference Ranges. For more information see Policy Stat Procedure [place] High Sensitivity Troponin (TNIH) and attachments. Platelets bldon 11-04-2021 Platelets (Bld) [#/Vol] 364 10*3/uL 150-450 [facility] Work Phone: Serum or plasma C reactive p rotein measurement (mass/volume)on 11-04-2021 CRP [Mass/Vol] 31.90 mg/L 0.0-3.0 [facility] Work Phone: Comment on above: C-Reactive Protein ( CRP) provides useful information for thediagnosis, therapy and monitoring of inflammatory processesand associated diseases. For the evaluation of Relative Riskfor Cardiovascular Disease, a High Sensitivity CRP (HSCRP)should be ordered. Serum or plasma calcium oral urement (mass/volume)on 11-04-2021 Calcium [Mass/Vol] 9.1 mg/dL 8.5-10.1 oste r [facility] Work Phone: Serum or plasma creatinine m easurement (mass/volume)on 11-04-2021 Creatinine [Mass/Vol] 0.66 mg/dL 0.70-1.30 [facility] Work Phone: Comment on above: The validity of the calculated GFR & GFRAA in patients over 70 years has not been determined. Clinical correlation is essential. Serum or plasma urea nitroge n measurement (mass/volume)on 11-04-2021 Urea nitrogen [Mass/Vol] 12 mg/dL 7-18 [facility] Work Phone: Thin prep Papanicolaou smear with manual screeningon 11-04-2021 Thin prep Papanicolaou smear with manual screening 8 5-15 [facility] Work Phone: Complete Urinalysison 2021 Appearance (U) Clear Normal Clear [facility] [employer] Comment on above: Result Comment: . Performed By: #### C UA2 ####[employer] [id number] [place], [place] Bacteria Moderate Abnormal Negative [facility] [employer] Comment on above: Result Comment: . Performed By: #### C UA2 ####[employer] [id number] [place], [place] Bilirubin,Urine Negative Normal Negative [facility] Comment on above: Result Comment: . Performed By: #### C UA2 ####[employer] [id number] [place], [place] Cast, Hyaline Negative Normal Negative [facility] Comment on above: Result Comment: . Performed By: #### C UA2 ####[employer] [id number] [place], [place] Color (U) Yellow Normal Lt. Yellow [facility] Comment on above: Result Comment: . Performed By: #### C UA2 ####[employer] [id number] [employer] [place], [place] Glucose Ql (U) Normal Normal Normal (<70) [facility] Comment on above: Result Comment: . Performed By: #### C UA2 ####[employer] [id number] [place] [address] Ketone,Urine Negative Normal Negative [facility] Comment on above: Result Comment: . Performed By: #### C UA2 ####[employer] [id number] [employer] [place], [place] Leukocytes,Urine Negative Normal Negative [facility] Comment on above: Result Comment: . Performed By: #### C UA2 ####[employer] [id number] [place], [place] Mucous Threads Few Normal Negative [facility] Comment on above: Result Comment: . Performed By: #### C UA2 ####[id number] [place], [place] Nitrites,Urine Negative Normal Negative [facility] Comment on above: Result Comment: . Performed By: #### C UA2 ####[address] [place], [place] Occult Blood,Urine 0.1 mg/dL Abnormal Negative [facility] Comment on above: Result Comment: . Performed By: #### C UA2 ####[address] [place], [place] pH,Urine 5.5 Normal 5.0-8.0 [facility] Comment on above: Result Comment: . Performed By: #### C UA2 ####[address] [place], [place] Protein (U) [Mass/Vol] 10 mg/dL Abnormal Negative [facility] Comment on above: Result Comment: . Performed By: #### C UA2 ####[address] [place], [place] RBC, Urine 26 - 50 Abnormal 0-2 [facility] Comment on above: Result Comment: . Performed By: #### C UA2 ####[address] [place], [place] Specific [place],Urine 1.023 Normal 1.005 - 1.030 [facility] Comment on above: Result Comment: . Performed By: #### C UA2 ####[address] Squamous Epithelial Negative Normal 3-5 [facility] Comment on above: Result Comment: . Performed By: #### C UA2 ####[address] [place], [place] Urobilinogen,Urine Normal Normal Normal (0-1) [facility] Comment on above: Result Comment: . Performed By: #### C UA2 ####[address] [place] [address] WBC, Urine 0 - 2 Normal 0-5 [facility] Comment on above: Result Comment: . Performed By: #### C UA2 ####[facility] [place] [address] Urinalysison 11-01-2021 Appearance (U) Clear Clear NA [...] Protein (U) [Mass/Vol] 10 mg/dL Abnormal Negative [facility] Comment on above: . RBC, UA 26-50 Abnormal 0 - 2 /[HPF] [facility] Comment on above: . Specific [place], Urine 1.023 [facility] Comment on above: . Squam Epithel, UA Negative 3 - 5 /[HPF] [facility] Comment on above: . Urobilinogen, Urine Normal Normal ( 0-1) mg/dL [facility] Comment on above: . WBC, UA 0-2 0 - 5 /[HPF] [facility] Comment on above: . Test Performed by [facility], [address] [place] [address] [facility] Basic Metabolic Panelon 10-06 Anion gap [Moles/Vol] 6 mmol/L Normal 3-13 [facility] Comment on above: Performed By: #### P T/AP, TROPN, BMP3, HEMDF #### [facility] [address] [place], [place] Calcium [Mass/Vol] 9.1 mg/dL Normal 8.4-10.4 [facility] Comment on above: Performed By: #### P T/AP, TROPN, BMP3, HEMDF #### [facility] [address] [place], [place] CO2 [Moles/Vol] 28 mmol/L Normal 22-30 [facility] Comment on above: Performed By: #### P T/AP, TROPN, BMP3, HEMDF #### [address] [place], [place] Glucose [Mass/Vol] 120 mg/dL High 70-100 [facility] Comment on above: Performed By: #### P T/AP, TROPN, BMP3, HEMDF #### [address] [place], [place] Urea nitrogen [Mass/Vol] 17 mg/dL Normal 7-17 [facility] Comment on above: Performed By: #### P T/AP, TROPN, BMP3, HEMDF #### [address] [place], [place] Creatinine [Mass/Vol] 0.65 mg/dL Normal 0.52-1.25 [facility] Comment on above: Performed By: #### P T/AP, TROPN, BMP3, HEMDF #### [place] [place], [place] eGFR OTHER > 90.0 Normal >60 [facility] Comment on above: Result Comment: KDIG O [...] T/AP, TROPN, BMP3, HEMDF #### [address] [address] [place], [place] GFR/1.73 sq M.predicted among blacks MDRD (S/P/Bld) [Vol rate/Area] mL/min/{1.73_m2} Normal >60 [facility] Comment on above: Performed By: #### P T/AP, TROPN, BMP3, HEMDF #### [address] [address] [place], [place] Potassium [Moles/Vol] 3.8 mmol/L Normal 3.5-5.1 [facility] Comment on above: Performed By: #### P T/AP, TROPN, BMP3, HEMDF #### [place] [address] [place], [place] Chloride [Moles/Vol] 101 mmol/L Normal 98-107 [facility] Comment on above: Performed By: #### P T/AP, TROPN, BMP3, HEMDF #### [place] [place], [place] Sodium [Moles/Vol] 134 mmol/L Low 135-145 [facility] Comment on above: Performed By: #### P T/AP, TROPN, BMP3, HEMDF #### [place] [address] [place], [place] Anion gap [Moles/Vol] 6 mmol/L 3 - 13 mmol/L [facility] Calcium [Mass/Vol] 9.1 mg/dL 8.4 - 10. 4 mg/dL [facility] Chloride [Moles/Vol] 101 mmol/L 98 - 10 7 mmol/L [facility] CO2 [Moles/Vol] 28 mmol/L 22 - 30 mmol/L [facility] Creatinine [Mass/Vol] 0.65 mg/dL 0.52 - 1.25 mg/dL [facility] EGFR IF NonAfrican Armenian >90.0 >60 mL/min [facility] Comment on above: [...] - 17 mg/dL [facility] Test Performed by [facility], [address] [place] [id number] [place] [address] LAB [facility] CBC with Auto Differentialon 10-31-2021 [...] - 10.7 10*3/uL [facility] Test Performed by [address] LAB [facility] CR Abdomen APon 10-31-2021 CR Abdomen AP Patient Name: ANDREW SIFUENTES Diagnostic Radiology ACCESSION EXAM DATE/TIME PROCEDURE ORDERING PROVIDER [id number] 10/31/2021 20:36 EDT CR Abdomen AP [id number] MYRON GALINDO CPT code 23514 Reason For Exam (CR Abdomen AP) vp strategic planning shunt, 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 CHEST PORTABLE [...] Transcribed Date and Time: 10/31/2021 8:49 Normal [facility] CR Chest Portableon 11-01-19 CR Chest Portable Patient Name: ANDREW SIFUENTES Diagnostic Radiology ACCESSION EXAM DATE/TIME PROCEDURE ORDERING PROVIDER [id number] 10/31/2021 20:36 EDT CR Chest Portable [id number] MARTÍNEZ CPT code 15760 Reason For Exam (CR Chest Portable) AMS [...] Transcribed Date and Time: 10/31/2021 8:49 Normal [facility] CT HEAD WO CONTRASTon 2021 Patient Name: ANDREW SIFUENTES Computed Tomography ACCESSION EXAM DATE/TIME PROCEDURE ORDERING PROVIDER [id number] 10/31/2021 20:[address] Head or Brain w/o [id number] -DURAN MYRON Contrast CPT code 36053 Reason For Exam (CT Head or Brain w/o Contrast) AMS, previous BRAKE REPAIR MECHANIC shunt Report Examination: CT Head Clinical Information: AMS, previous BRAKE REPAIR MECHANIC shunt Comparison: 10/26/2021, MRI 10/27/2021 Findings: Serial [...] J Transcribed Date and Time: 10/31/2021 8:54 [facility] Alan Wong MD - 10/31/2021 [id number] Tomography ACCESSION EXAM DATE/TIME PROCEDURE ORDERING PROVIDER [id number] 10/31/2021 20:[address] Head or Brain w/o [id number] -MYRON DURAN Contrast CPT code 21988 Reason For Exam (CT Head or Brain w/o Contrast) AMS, previous BRAKE REPAIR MECHANIC shunt Report Examination: CT Head Clinical Information: AMS, previous BRAKE REPAIR MECHANIC shunt Comparison: 10/26/2021, MRI 10/27/2021 Findings: Serial [...] Tomography ACCESSION EXAM DATE/TIME PROCEDURE ORDERING PROVIDER [id number] 10/31/2021 20:[address] Head or Brain w/o [id number] -DURAN, MYRON Contrast CPT code 32047 Reason For Exam (CT Head or Brain w/o Contrast) AMS, previous BRAKE REPAIR MECHANIC shunt Report Examination: CT Head Clinical Information: AMS, previous BRAKE REPAIR MECHANIC shunt Comparison: 10/26/2021, MRI 10/27/2021 Findings: Serial [...] Transcribed Date and Time: 10/31/2021 8:54 Normal [facility] ED Provider Noteon ED Provider Note Emergency Department Encounter [facility] EMERGENCY DEPT Patient: Andrew Sifuentes : 1950 [...] is cooperative and calm. According to the residential, he has been more lethargic than normal, [...] Solutions Dante Kim MD 10/31/21 2211 Normal [facility] ED Provider Note [facility] EMERGENCY DEPT EMERGENCY DEPARTMENT ENCOUNTER Pt Name: Andrew Sifuentes Birthdate 1950 Date of evaluation: 10/31/2021 Provider: Myron Duran MD CHIEF COMPLAINT Chief Complaint Patient presents with ? Altered Mental Status Pt presents to ED via [facility] for complaint listed. Pt is from [employer] [facility]. Pt's LKW was 1000 hours today. [...] have a history of hydrocephalus with a BRAKE REPAIR MECHANIC shunt. 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 REVIEW OF [...] (HCC) ? Kidney stone ? Neuropathy ? BRAKE REPAIR MECHANIC (ventriculoperitoneal) shunt status SURGICAL HISTORY Past Surgical [...] of Transportati (more content not included)... 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 : 1950 Requested By: MYRON DURAN Order Number: [id number] Reading MD: Dante Kim Measurements Intervals [place] Rate: 91 P: 41 IN: 154 QRS: 50 QRSD: 147 T: 8 QT: 385 QTc: 474 Interpretive Statements Sinus rhythm Right bundle branch block Electronically Signed On 10-31-2021 20:36:25 EDT by Dante Kim [facility] CARDIOLOGY Dante Kim M D - 10/31/2021 [facility] Test Date: 2021-10-31 Pat Name: ANDREW SIFEUNTES Department: ER Room: 40 Gender: M 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 : 1950 Requested By: MYRON DURAN Order Number: [id number] Reading MD: Dante Kim Measurements Intervals [place] Rate: 91 P: 41 IN: 154 QRS: 50 QRSD: 147 T: 8 QT: 385 QTc: 474 Interpretive Statements Sinus rhythm Right bundle branch block Electronically Signed On 10-31-2021 20:36:25 EDT by Dante Kim [facility] Work Phone: EKG 12 Lead - Chest PainOrde red By: Dante Kim on 10-31-2021 [facility] Work Phone: Hemogram w/ Autodiffon 10-31 Abs Baso Cnt 0.1 10*3/uL Normal 0.0-0.2 [facility] Comment on above: Performed By: #### P T/AP, TROPN, BMP3, HEMDF #### [address] [id number] Abs Neutrophile Cnt 6.0 10*3/uL Normal 1.8-7.0 [facility] Comment on above: Performed By: #### P T/AP, TROPN, BMP3, HEMDF #### [address] Basophils/100 WBC (Bld) 1.1 % Normal 0.0-2.0 [facility] Comment on above: Performed By: #### P T/AP, TROPN, BMP3, HEMDF #### [address] Eosinophils (Bld) [#/Vol] 0.2 10*3/uL Normal 0.0-0.5 [facility] Comment on above: Performed By: #### P T/AP, TROPN, BMP3, HEMDF #### [address] Eosinophils/100 WBC (Bld) 2.3 % Normal 1.0-6.0 [facility] Comment on above: Performed By: #### P T/AP, TROPN, BMP3, HEMDF #### [address] Erythrocyte distribution width (RBC) [Ratio] 17.2 % High 11.5-14.5 [facility] Comment on above: Performed By: #### P T/AP, TROPN, BMP3, HEMDF #### [address] Granulocytes/100 WBC (Bld) 61.8 % Normal 40.0-80.0 [facility] Comment on above: Performed By: #### P T/AP, TROPN, BMP3, HEMDF #### [address] Hematocrit (Bld) [Volume fraction] 35.0 % Low 40.0-52.0 [facility] Comment on above: Performed By: #### P T/AP, TROPN, BMP3, HEMDF #### [address] Hemoglobin (Bld) [Mass/Vol] 11.3 g/dL Low 13.0-18.0 [facility] Comment on above: Performed By: #### P T/AP, TROPN, BMP3, HEMDF #### [address] [place] Lymphocytes (Bld) [#/Vol] 2.8 10*3/uL Normal 1.0-4.3 [facility] Comment on above: Performed By: #### P T/AP, TROPN, BMP3, HEMDF #### [address] Lymphocytes/100 WBC (Bld) 29.2 % Normal 20.0-40.0 [facility] Comment on above: Performed By: #### P T/AP, TROPN, BMP3, HEMDF #### [address] MCH (RBC) [Entitic mass] 27.5 pg Normal 26.0-34.0 [facility] Comment on above: Performed By: #### P T/AP, TROPN, BMP3, HEMDF #### [address] MCHC 32.3 % Normal 32.0-36.0 [facility] Comment on above: Performed By: #### P T/AP, TROPN, BMP3, HEMDF #### [address] MCV (RBC) [Entitic vol] 85.0 fL Normal 80.0-98.0 [facility] Comment on above: Performed By: #### P T/AP, TROPN, BMP3, HEMDF #### [address] Monocytes (Bld) [#/Vol] 0.5 10*3/uL Normal 0.0-0.8 [facility] Comment on above: Performed By: #### P T/AP, TROPN, BMP3, HEMDF #### [address] Monocytes/100 WBC (Bld) 5.6 % Normal 2.0-10.0 [facility] Comment on above: Performed By: #### P T/AP, TROPN, BMP3, HEMDF #### [address] [address] [place], [place] Platelet mean volume (Bld) [Entitic vol] 8.6 fL Normal 7.4-12.4 [facility] Comment on above: Result Comment: MPV is a calculated measurement using platelet volume ratio. Performed By: #### P T/AP, TROPN, BMP3, HEMDF #### [facility] [address] [place], [place] Platelets (Bld) [#/Vol] 348 10*3/uL Normal 140-440 [facility] Comment on above: Performed By: #### P T/AP, TROPN, BMP3, HEMDF #### [facility] [address] [place], [place] RBC (Bld) [#/Vol] 4.12 10*6/uL Low 4.40-5.90 [facility] Comment on above: Performed By: #### P T/AP, TROPN, BMP3, HEMDF #### [address] [place], [place] WBC (Bld) [#/Vol] 9.7 10*3/uL Normal 3.6-10.7 [facility] Comment on above: Performed By: #### P T/AP, TROPN, BMP3, HEMDF #### [facility] [address] [place], [place] Laboratory - Coagulationon 0 10-31-2021 INR Coag (Bld) [Relative time] 2.0 {INR} [facility] Work Phone: Comment on above: Critical Value > 4.0 No Panel Informationon 10-31 Radiology Study observation (narrative) [facility] Work Phone: PROTIME/INR & PTTon 11-01-19 22 aPTT Coag (Bld) [Time] 39.2 s High 20.0 - 30.5 s [facility] Comment on above: NOTE: The therapeuti c time for Heparin anticoagulation, based on Xa activity inhibition, is an APTT of 46-80 seconds. INR Coag (Bld) [Relative time] 1.9 {INR} High [facility] Comment on above: Recommended Anticoag ulant [...] Interpretation and review of laboratory results Abnormal [facility] PT Coag (PPP) [Time] 19.8 s High 9.0 - 12.0 s [facility] Comment on above: . Test Performed by [facility], [address] [place] [id number] [place] [address] - [facility] Protime AND APTTon 2 aPTT Coag (Bld) [Time] 39.2 s High 20.0-30.5 [facility] Comment on above: Result Comment: NOTE : The therapeutic time for Heparin anticoagulation, based on Xa activity inhibition, is an APTT of 46-80 seconds. Performed By: #### P T/AP, TROPN, BMP3, HEMDF #### [address] [address] INR 1.9 High 0.9-1.1 [facility] Comment on above: Result Comment: Harry mmended [...] #### P T/AP, TROPN, BMP3, HEMDF #### [address] [address] PT Coag (PPP) [Time] 19.8 s High 9.0-12.0 [facility] Comment on above: Result Comment: . Performed By: #### P T/AP, TROPN, BMP3, HEMDF #### [address] [address] [place] [address] Troponin Ion 10-31-2021 Troponin I.cardiac [Mass/Vol] ng/mL Normal 0.000-0.034 [facility] Comment on above: Result Comment: . Performed By: #### P T/AP, TROPN, BMP3, HEMDF #### [facility] [address] [place] [address] Troponin x1on 10-31-2021 Troponin I.cardiac [Mass/Vol] ng/mL 0.000 - 0.034 ng/mL [facility] Comment on above: . Test Performed by [facility], [address] [place] [address] [facility] Whole blood prothrombin time on 10-31-2021 PT Coag (Bld) [Time] 23.7 s 11.7-14.9 [facility] Work Phone: XR ABDOMEN (KUB) (SINGLE AP VIEW)on 10-31-2021 Patient Name: ANDREW SIFUENTES Diagnostic Radiology ACCESSION EXAM DATE/TIME PROCEDURE ORDERING PROVIDER [id number] 10/31/2021 20:36 EDT CR Abdomen AP [id number] -MYRON DURAN CPT code 92446 Reason For Exam (CR Abdomen AP) vp strategic planning shunt, 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 CHEST PORTABLE [...] Transcribed Date and Time: 10/31/2021 8:[facility] - 10/31/2021 Patient Name: ANDREW SIFUENTES Diagnostic Radiology ACCESSION EXAM DATE/TIME PROCEDURE ORDERING PROVIDER [id number] 10/31/2021 20:36 EDT CR Abdomen AP [id number] -MYRON DURAN CPT code 59532 Reason For Exam (CR Abdomen AP) vp strategic planning shunt, 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 CHEST PORTABLE [...] Time: 10/31/2021 8:52 pm Signed by: MD REYNOOS WENDELL Transcribed Date and Time: 10/31/2021 8:49 [facility] Work Phone: [facility] Work Phone: XR CHEST PORTABLEon 11-01-19 Patient Name: ANDREW SIFUENTES Diagnostic Radiology ACCESSION EXAM DATE/TIME PROCEDURE ORDERING PROVIDER [id number] 10/31/2021 20:36 EDT CR Chest Portable MYRON CEBALLOS CPT code 99475 Reason For Exam (CR Chest Portable) AMS [...] WENDELL Transcribed Date and Time: 10/31/2021 8:49 [facility] Huang Reynoso MD - 10/31/2021 Patient Name: ANDREW SIFUENTES Diagnostic Radiology ACCESSION EXAM DATE/TIME PROCEDURE ORDERING PROVIDER [id number] 10/31/2021 20:36 EDT CR Chest Portable [id number] MARTÍNEZ CPT code 83424 Reason For Exam (CR Chest Portable) AMS [...] WENDELL Transcribed Date and Time: 10/31/2021 8:49 [facility] Work Phone: XR CHEST PORTABLEOrdered By: Huang Reynoso on 10-31-2021 [facility] Work Phone: Lupus Anticoagulanton 2021 DRVVT Confirmation Test Not Applicable Negative ratio [facility] Work Phone: dRVVT Screen 38 [facility] Work Phone: Hex Phosph Neut Test Not Applicable Negative NA [facility] Work Phone: Interpretation and review of laboratory results Abnormal [facility] Work Phone: LUPUS INTERPRETATION See Note [facility] Work Phone: Comment on above: Lupus anticoagulant [...] has not already been performed. Performed by [employer], [address] [place] [address] [email or web address], Quiana Castro MD - Lab. Director Platelet Neutralization Not Applicable Negative NA [facility] Work Phone: PTT-D Heparin Neutralized 48 [facility] Work Phone: PTT-LA 55 High [facility] Work Phone: Reptilase Tm 17.6 <=21.9 sec [facility] Work Phone: Thrombin Time 25.3 High [facility] Work Phone: [facility] Work Phone: Lupus Anticoagulant Reflexiv e Panelon 10-29-2021 aPTT Coag (Bld) [Time] 55 s High 32-48 [facility] Comment on above: Performed By: #### C OVAG #### [facility] [address] [place] [address] aPTT Coag (Bld) [Time] 48 s Normal 32-48 [facility] Comment on above: Performed By: #### C OVAG #### [facility] [address] [place] [address] DRVVT 1:1 Mix Not Applicable Normal 33-44 [facility] Work Phone: Comment on above: Performed By: #### C OVAG #### [facility] [address] [place] [address] dRVVT Confirmation Not Applicable Normal Negative [facility] Comment on above: Performed By: #### C OVAG #### [facility] [address] [place] [address] dRVVT Screen 38 sec Normal 33-44 [facility] Comment on above: Performed By: #### C OVAG #### [facility] [address] [place] [address] Hexagonal Phospholipid Neutral Reflex Not Applicable Normal Negative [facility] Comment on above: Performed By: #### C OVAG #### [facility] [address] [place] [address] Lupus Anticoagulant Interpretation See Note Normal [facility] Comment on above: Result Comment: Lupu s [...] has not already been performed. Performed by [employer], [address] [place] [id number] [email or web address], Quiana Castro MD - Lab. Director Performed By: #### C OVAG #### [facility] [address] [place] [address] Platelet Neutralization (PTT-D, Confirm) Not Applicable Normal Negative [facility] Comment on above: Performed By: #### C OVAG #### [facility] [address] [place] [address] PT Coag (PPP) [Time] 14.7 s Normal 12.0-15.5 [facility] Work Phone: Comment on above: Performed By: #### C OVAG #### [facility] [address] [place] [address] PTT-D 1:1 Mix Not Applicable Normal 32-48 [facility] Work Phone: Comment on above: Performed By: #### C OVAG #### [facility] [address] [place] [address] Reptilase Time 17.6 sec Normal <=21.9 [facility] Comment on above: Performed By: #### C OVAG #### [facility] [address] [place] [address] Thrombin Time 25.3 sec High 14.7-19.5 [facility] Comment on above: Performed By: #### C OVAG #### [facility] [address] [place] [address] POCT COVID-19, Antigenon SARS-CoV-2 Nucleocapsid Antigen Negative Negative [facility] Comment on above: A negative result does not rule out the possibility of SARS-CoV-2 infection. NAAT-based methods should be considered for symptomatic patients presenting greater than seven days after onset of symptoms. Method: Lateral flow immunoassay. Fact sheets for healthcare providers and patients can be found at the following sites: https://www.Anchor™.gov/media/575744/download https://www.Anchor™.gov/media/782761/download Test Performed by [facility], [address] [place], [place], [place] [address] [facility] Prothrombin Timeon INR 2.7 High 0.9-1.1 [facility] Comment on above: Result Comment: Harry mmended [...] Infarction Performed By: #### P T #### [facility] [address] [place] [address] PT Coag (PPP) [Time] 27.4 s High 9.0-12.0 [facility] Comment on above: Result Comment: . Performed By: #### P T #### [facility] [address] [place] [address] Protime-INRon 10-29-2021 INR Coag (Bld) [Relative time] 2.7 {INR} High [facility] Work Phone: Comment on above: Recommended [...] Interpretation and review of laboratory results Abnormal [facility] Work Phone: [phone] PT Coag (PPP) [Time] 27.4 s High 9.0 - 12.0 s [facility] Work Phone: [phone] Comment on above: . Test Performed by [employer], [address], [place], [place] [address] [facility] Work Phone: [phone] SARS-CoV-2 Antigenon 022 SARS-CoV-2 Antigen Negative Normal Negative [facility] Comment on above: Result Comment: A negative result does not rule out the possibility of SARS-CoV-2 infection. NAAT-based methods should be considered for symptomatic patients presenting greater than seven days after onset of symptoms. Method: Lateral flow immunoassay. Fact sheets for healthcare providers and patients can be found at the following sites: https://www.Anchor™.gov/media/095271/download https://www.Anchor™.gov/media/417214/download Performed By: #### C OVAG #### [facility] [address] [place] [address] CBCon 10-28-2021 Hematocrit (Bld) [Volume fraction] 33.4 % Low 40.0 - 52.0 % [facility] Work Phone: [phone] Hemoglobin (Bld) [Mass/Vol] 11.0 g/dL Low 13.0 - 18.0 g/dL [facility] Work Phone: [phone] Interpretation and review of laboratory results Abnormal [facility] Work Phone: [phone] MCH (RBC) [Entitic mass] 27.8 pg 26.0 - 34.0 pg [facility] Work Phone: [phone] MCHC (RBC) [Mass/Vol] 32.8 % 32.0 - 36.0 % [facility] Work Phone: [phone] MCV (RBC) [Entitic vol] 84.8 fL 80.0 - 98.0 fL [facility] Work Phone: [phone] Platelet distribution width (Bld) [Ratio] 17.1 % High 11.5 - 14.5 % [facility] Work Phone: [phone] Platelet mean volume (Bld) [Entitic vol] 8.3 fL 7.4 - 12.4 fL [employer] Work Phone: Comment on above: MPV is a calculated measurement using platelet volume ratio. Platelets (Bld) [#/Vol] 344 10*3/uL 140 - 440 10*3/uL [facility] Work Phone: [phone] RBC (Bld) [#/Vol] 3.94 10*6/uL Low 4.40 - 5.9 0 10*6/uL [facility] Work Phone: [phone] WBC (Bld) [#/Vol] 10.0 10*3/uL 3.6 - 10.7 10*3/uL [facility] Work Phone: [phone] Test Performed by [facility], [address] [place], [place] [id number] [place] [address] LAB [facility] Work Phone: Comp Metabolic Panelon 10-28 ALP [Catalytic activity/Vol] 103 U/L Normal 38-126 [facility] Comment on above: Performed By: #### C A19O, LUPUS #### The performing lab is in the report. #### NSEO #### [facility] #### HEMDF, LDH3, BMP3, MG3, PT, CEA2 #### [facility] [address] [place] [address] #### B2GPM, B2GPA, B2GPG #### [address] [address] ALT [Catalytic activity/Vol] 26 U/L Normal 0-49 [facility] Comment on above: Result Comment: The ALT test is performed by an updated assay method. Please note that the reference intervals have been changed and are now sex specific. Performed By: #### C A19O, LUPUS #### The performing lab is in the report. #### NSEO #### [facility] #### HEMDF, LDH3, BMP3, MG3, PT, CEA2 #### [facility] [address] [place] [address] #### B2GPM, B2GPA, B2GPG #### [address] AST [Catalytic activity/Vol] 24 U/L Normal 15-46 [facility] Comment on above: Performed By: #### C A19O, LUPUS #### The performing lab is in the report. #### NSEO #### [facility] #### HEMDF, LDH3, BMP3, MG3, PT, CEA2 #### [facility] [address] [place] [address] #### B2GPM, B2GPA, B2GPG #### [address] Calcium [Mass/Vol] 9.1 mg/dL Normal 8.4-10.4 [facility] Comment on above: Performed By: #### C A19O, LUPUS #### The performing lab is in the report. #### NSEO #### [facility] #### HEMDF, LDH3, BMP3, MG3, PT, CEA2 #### [facility] [address] [place] [address] #### B2GPM, B2GPA, B2GPG #### [address] Glucose [Mass/Vol] 117 mg/dL High 70-100 [facility] Comment on above: Performed By: #### C A19O, LUPUS #### The performing lab is in the report. #### NSEO #### [facility] #### HEMDF, LDH3, BMP3, MG3, PT, CEA2 #### [facility] [address] [place] [address] #### B2GPM, B2GPA, B2GPG #### [address] Urea nitrogen [Mass/Vol] 16 mg/dL Normal 7-17 [facility] Comment on above: Performed By: #### C A19O, LUPUS #### The performing lab is in the report. #### NSEO #### [facility] #### HEMDF, LDH3, BMP3, MG3, PT, CEA2 #### [place] [address] [place] [address] #### B2GPM, B2GPA, B2GPG #### [address] Anion gap [Moles/Vol] 5 mmol/L Normal 3-13 [facility] Comment on above: Performed By: #### C A19O, LUPUS #### The performing lab is in the report. #### NSEO #### [facility] #### HEMDF, LDH3, BMP3, MG3, PT, CEA2 #### [address] [place] [address] #### B2GPM, B2GPA, B2GPG #### [address] Bilirubin [Mass/Vol] 0.4 mg/dL Normal 0.2-1.3 [facility] Comment on above: Performed By: #### C A19O, LUPUS #### The performing lab is in the report. #### NSEO #### [facility] #### HEMDF, LDH3, BMP3, MG3, PT, CEA2 #### [address] [place] [address] #### B2GPM, B2GPA, B2GPG #### [address] CO2 [Moles/Vol] 29 mmol/L Normal 22-30 [facility] Comment on above: Performed By: #### C A19O, LUPUS #### The performing lab is in the report. #### NSEO #### [facility] #### HEMDF, LDH3, BMP3, MG3, PT, CEA2 #### [address] [place] [address] #### B2GPM, B2GPA, B2GPG #### [address] Creatinine [Mass/Vol] 0.71 mg/dL Normal 0.52-1.25 [facility] Comment on above: Performed By: #### Eileen A1TalitaO, LUPUS #### The performing lab is in the report. #### NSEO #### [facility] #### HEMDF, LDH3, BMP3, MG3, PT, CEA2 #### [facility] [address] [place], [place] #### B2GPM, B2GPA, B2GPG #### [facility] [address] [place], [place] eGFR OTHER > 90.0 Normal >60 [facility] Comment on above: Result Comment: KDIG O [...] tubular creatinine secretion. Performed By: #### Eileen A1TalitaO LUPUS #### The performing lab is in the report. #### NSEO #### [facility] #### HEMDF, LDH3, BMP3, MG3, PT, CEA2 #### [facility] [address] [place], [place] #### B2GPM, B2GPA, B2GPG #### [facility] [address] [place], [place] GFR/1.73 sq M.predicted among blacks MDRD (S/P/Bld) [Vol rate/Area] mL/min/{1.73_m2} Normal >60 [facility] Comment on above: Performed By: #### C A19O, LUPUS #### The performing lab is in the report. #### NSEO #### [facility] #### HEMDF, LDH3, BMP3, MG3, PT, CEA2 #### [place] [address] [place] [address] #### B2GPM, B2GPA, B2GPG #### [address] [phone] Protein [Mass/Vol] 7.1 g/dL Normal 6.3-8.2 [facility] Comment on above: Performed By: #### C A19O, LUPUS #### The performing lab is in the report. #### NSEO #### [facility] #### HEMDF, LDH3, BMP3, MG3, PT, CEA2 #### [place] [address] [place] [address] #### B2GPM, B2GPA, B2GPG #### [address] [address] Potassium [Moles/Vol] 3.5 mmol/L Normal 3.5-5.1 [facility] Comment on above: Performed By: #### C A19O, LUPUS #### The performing lab is in the report. #### NSEO #### [facility] #### HEMDF, LDH3, BMP3, MG3, PT, CEA2 #### [place] [address] [facility] [place] [address] #### B2GPM, B2GPA, B2GPG #### [address] [address] Sodium [Moles/Vol] 138 mmol/L Normal 135-145 [facility] Comment on above: Performed By: #### C A19O, LUPUS #### The performing lab is in the report. #### NSEO #### [facility] #### HEMDF, LDH3, BMP3, MG3, PT, CEA2 #### [place] [address] [place] [address] #### B2GPM, B2GPA, B2GPG #### [address] Albumin [Mass/Vol] 3.7 g/dL Normal 3.5-5.0 [facility] Comment on above: Performed By: #### C A19O, LUPUS #### The performing lab is in the report. #### NSEO #### [facility] #### HEMDF, LDH3, BMP3, MG3, PT, CEA2 #### [place] [address] [place] [address] #### B2GPM, B2GPA, B2GPG #### [address] Chloride [Moles/Vol] 104 mmol/L Normal 98-107 [facility] Comment on above: Performed By: #### C A19O, LUPUS #### The performing lab is in the report. #### NSEO #### [facility] #### HEMDF, LDH3, BMP3, MG3, PT, CEA2 #### [place] [address] [place] [address] #### B2GPM, B2GPA, B2GPG #### [address] [address] Comprehensive Metabolic Pane kiel 10-28-2021 Albumin [Mass/Vol] 3.7 g/dL 3.5 - 5.0 g/dL [facility] Work Phone: [phone] ALP (Bld) [Catalytic activity/Vol] 103 U/L 38 - 126 U/L [facility] Work Phone: ALT [Catalytic activity/Vol] 26 U/L 0 - 49 U/L [facility] Work Phone: Comment on above: The ALT test is perf ormed by an updated assay method. Please note that the reference intervals have been changed and are now sex specific. Anion gap [Moles/Vol] 5 mmol/L 3 - 13 mmol/L [facility] Work Phone: AST [Catalytic activity/Vol] 24 U/L 15 - 46 U/L [facility] Work Phone: [phone] Bilirubin [Mass/Vol] 0.4 mg/dL 0.2 - 1 .3 mg/dL [facility] Work Phone: [phone] Calcium [Mass/Vol] 9.1 mg/dL 8.4 - 10. 4 mg/dL [facility] Work Phone: [phone] Chloride [Moles/Vol] 104 mmol/L 98 - 10 7 mmol/L [facility] Work Phone: [phone] CO2 [Moles/Vol] 29 mmol/L 22 - 30 mmol/L [facility] Work Phone: [phone] Creatinine [Mass/Vol] 0.71 mg/dL 0.52 - 1.25 mg/dL [facility] Work Phone: () EGFR IF NonAfrican Armenian >90.0 >60 mL/min [facility] Work Phone: [phone] Comment on above: KDIGO guidelines pro vide [...] fraction] 7.1 g/dL 6.3 - 8.2 g/dL [facility] Work Phone: [phone] GFR/1.73 sq M.predicted among blacks MDRD (S/P/Bld) [Vol rate/Area] mL/min/{1.73_m2} >60 mL/min [facility] Work Phone: [phone] Glucose [Mass/Vol] 117 mg/dL High 70 - 100 mg/dL [facility] Work Phone: Interpretation and review of laboratory results Abnormal [facility] Work Phone: Potassium [Moles/Vol] 3.5 mmol/L 3.5 - 5.1 mmol/L [facility] Work Phone: Sodium [Moles/Vol] 138 mmol/L 135 - 145 mmol/L [facility] Work Phone: Urea nitrogen (BldV) [Mass/Vol] 16 mg/dL 7 - 17 mg/dL [facility] Work Phone: Test Performed by [facility], [address] [place], [place] [id number] [place] [address] LAB [facility] Work Phone: Hemogramon 10-28-2021 Erythrocyte distribution width (RBC) [Ratio] 17.1 % High 11.5-14.5 [facility] Comment on above: Performed By: #### C A19O, LUPUS #### The performing lab is in the report. #### NSEO #### [facility] #### HEMDF, LDH3, BMP3, MG3, PT, CEA2 #### [facility] [address] [place] [address] #### B2GPM, B2GPA, B2GPG #### [address] Hematocrit (Bld) [Volume fraction] 33.4 % Low 40.0-52.0 [facility] Comment on above: Performed By: #### C A19O, LUPUS #### The performing lab is in the report. #### NSEO #### [facility] #### HEMDF, LDH3, BMP3, MG3, PT, CEA2 #### [facility] [address] [place] [address] #### B2GPM, B2GPA, B2GPG #### [address] Hemoglobin (Bld) [Mass/Vol] 11.0 g/dL Low 13.0-18.0 [facility] Comment on above: Performed By: #### C A19O, LUPUS #### The performing lab is in the report. #### NSEO #### [facility] #### HEMDF, LDH3, BMP3, MG3, PT, CEA2 #### [facility] [address] [place] [address] #### B2GPM, B2GPA, B2GPG #### [address] MCH (RBC) [Entitic mass] 27.8 pg Normal 26.0-34.0 [facility] Comment on above: Performed By: #### C A19O, LUPUS #### The performing lab is in the report. #### NSEO #### [facility] #### HEMDF, LDH3, BMP3, MG3, PT, CEA2 #### [facility] [address] [place], [place] #### B2GPM, B2GPA, B2GPG #### [address] MCHC 32.8 % Normal 32.0-36.0 [facility] Comment on above: Performed By: #### C A19O, LUPUS #### The performing lab is in the report. #### NSEO #### [facility] #### HEMDF, LDH3, BMP3, MG3, PT, CEA2 #### [facility] [address] [place], [place] #### B2GPM, B2GPA, B2GPG #### [address] MCV (RBC) [Entitic vol] 84.8 fL Normal 80.0-98.0 [facility] Comment on above: Performed By: #### C A19O, LUPUS #### The performing lab is in the report. #### NSEO #### [facility] #### HEMDF, LDH3, BMP3, MG3, PT, CEA2 #### [facility] [address] [place] [address] #### B2GPM, B2GPA, B2GPG #### [address] Platelet mean volume (Bld) [Entitic vol] 8.3 fL Normal 7.4-12.4 [facility] Comment on above: Result Comment: MPV is a calculated measurement using platelet volume ratio. Performed By: #### C A19O, LUPUS #### The performing lab is in the report. #### NSEO #### [facility] #### HEMDF, LDH3, BMP3, MG3, PT, CEA2 #### [address] [place] #### B2GPM, B2GPA, B2GPG #### [address] Platelets (Bld) [#/Vol] 344 10*3/uL Normal 140-440 [facility] Comment on above: Performed By: #### C A19O, LUPUS #### The performing lab is in the report. #### NSEO #### [facility] #### HEMDF, LDH3, BMP3, MG3, PT, CEA2 #### [address] [place] #### B2GPM, B2GPA, B2GPG #### [address] RBC (Bld) [#/Vol] 3.94 10*6/uL Low 4.40-5.90 [facility] Comment on above: Performed By: #### C A19O, LUPUS #### The performing lab is in the report. #### NSEO #### [facility] #### HEMDF, LDH3, BMP3, MG3, PT, CEA2 #### [place] [address] [place] [address] #### B2GPM, B2GPA, B2GPG #### [address] [address] WBC (Bld) [#/Vol] 10.0 10*3/uL Normal 3.6-10.7 [facility] Comment on above: Performed By: #### C A19O, LUPUS #### The performing lab is in the report. #### NSEO #### [facility] #### HEMDF, LDH3, BMP3, MG3, PT, CEA2 #### [facility] [address] [place] [address] #### B2GPM, B2GPA, B2GPG #### [facility] [address] [place] [address] Neuron Specific Enolaseon Neuron Specific Enolase 20.8 Normal [facility] Comment on above: Result Comment: Neur on Specific Enolase, Serum 20.8 ng/mL H (Ref Interval: <=12.7) NSE and Hgb are elevated in the specimen. The elevated NSE may be a result of hemolysis as NSE is expressed in red blood cells. Interpret results with caution. INTERPRETIVE INFORMATION: Neuron Specific Enolase in Serum This assay is performed using the [employer] NSE Kryptor Immunoassay. Results obtained with different assay methods or kits cannot be used interchangeably. Results cannot be interpreted as absolute evidence of the presence or absence of malignant disease. This test was developed and its performance characteristics determined by [employer]. It has not been cleared or approved by the [place] Food and Drug Administration. This test was performed in a CLIA certified laboratory and is intended for clinical purposes. Performed By: #### C OVAG #### [facility] [address] [place] [address] Neuron specific enolase (NSE )on 10-28-2021 Neuron Specific Enolase 20.8 [facility] Work Phone: Comment on above: Neuron Specific Enol ase, Serum 20.8 ng/mL H (Ref Interval: <=12.7) NSE and Hgb are elevated in the specimen. The elevated NSE may be a result of hemolysis as NSE is expressed in red blood cells. Interpret results with caution. INTERPRETIVE INFORMATION: Neuron Specific Enolase in Serum This assay is performed using the [employer] NSE Kryptor Immunoassay. Results obtained with different assay methods or kits cannot be used interchangeably. Results cannot be interpreted as absolute evidence of the presence or absence of malignant disease. This test was developed and its performance characteristics determined by [employer]. It has not been cleared or approved by the [place] Food and Drug Administration. This test was performed in a CLIA certified laboratory and is intended for clinical purposes. 1 [facility] Work Phone: Prothrombin Timeon 2 INR 3.1 High 0.9-1.1 [facility] Comment on above: Result Comment: Harry mmended [...] HEMDF, LDH3, BMP3, MG3, PT, CEA2 #### [facility] [address] [place] [address] #### B2GPM, B2GPA, B2GPG #### [facility] [address] [place] [address] PT Coag (PPP) [Time] 30.8 s High 9.0-12.0 [facility] Comment on above: Result Comment: . Performed By: #### C A19O, LUPUS #### The performing lab is in the report. #### NSEO #### [facility] #### HEMDF, LDH3, BMP3, MG3, PT, CEA2 #### [facility] [address] [place] [address] #### B2GPM, B2GPA, B2GPG #### [facility] [address] [place] [address] Protime-INRon 10-28-2021 INR Coag (Bld) [Relative time] 3.1 {INR} High [facility] Work Phone: Comment on above: Recommended [...] Interpretation and review of laboratory results Abnormal [facility] Work Phone: PT Coag (PPP) [Time] 30.8 s High 9.0 - 12.0 s [facility] Work Phone: Comment on above: . Test Performed by [facility], [address] [place] [id number] [place] [address] LAB [facility] Work Phone: MRI BRAIN WO CONTRASTon 10-06 Patient Name: ANDREW SIFUENTES [facility] ACCESSION EXAM DATE/TIME PROCEDURE ORDERING PROVIDER [id number] 10/27/2021 13:14 EDT MRI Brain w/o Contrast UNASSIGNED, UNASSIGNED CPT code 25736 Reason For Exam (MRI Brain w/o Contrast) stroke Patient has BRAKE REPAIR MECHANIC shunt in place, please follow Radiology protocol [...] RAMOS Transcribed Date and Time: 10/27/2021 2:39 [facility] Venus Loyd MD - 10/27/2021 Patient Name: ANDREW SIFUENTES [facility] ACCESSION EXAM DATE/TIME PROCEDURE ORDERING PROVIDER [id number] 10/27/2021 13:14 EDT MRI Brain w/o Contrast UNASSIGNED, UNASSIGNED CPT code 36563 Reason For Exam (MRI Brain w/o Contrast) stroke Patient has BRAKE REPAIR MECHANIC shunt in place, please follow Radiology protocol [...] Brain w/o Contrast [facility]: [id number] ACCESSION EXAM DATE/TIME PROCEDURE ORDERING PROVIDER [id number] 10/27/2021 13:14 EDT MRI Brain w/o Contrast UNASSIGNED, UNASSIGNED CPT code 46866 Reason For Exam (MRI Brain w/o Contrast) stroke Patient has BRAKE REPAIR MECHANIC shunt in place, please follow Radiology protocol [...] Transcribed Date and Time: 10/27/2021 2:39 Normal [facility] Prothrombin Timeon 2 INR 2.1 High 0.9-1.1 [facility] Comment on above: Result Comment: Harry mmended [...] Infarction Performed By: #### P T #### [facility] [address] [place] [address] PT Coag (PPP) [Time] 21.9 s High 9.0-12.0 [facility] Work Phone: Comment on above: . Result Comment: . Performed By: #### P T #### [facility] [address] [place] [address] Protime-INRon 10-27-2021 INR Coag (Bld) [Relative time] 2.1 {INR} High [facility] Work Phone: Comment on above: Recommended [...] Interpretation and review of laboratory results Abnormal [facility] Work Phone: Test Performed by [facility], [address], [place], [place] [id number] [place] [address] LAB [facility] Work Phone: CT HEAD WO CONTRASTon 2021 Patient Name: ANDREW SIFUENTES Computed Tomography ACCESSION EXAM DATE/TIME PROCEDURE ORDERING PROVIDER [id number] 10/26/2021 11:[address] Head or Brain w/o JUNIE PINEDA, SARINA Contrast CPT code 04598 Reason For Exam (CT Head or Brain w/o Contrast) hydrocephalus. thank you Report CLINICAL INFORMATION: Hydrocephalus. Shunt. 3 mm axial cuts through the head are obtained without IV contrast. The examination is compared to a previous study dated 06/29/2014. FINDINGS: Old BRAKE REPAIR MECHANIC shunt tubing is noted bilaterally. The new [...] are clear. IMPRESSION: 1. Old and new BRAKE REPAIR MECHANIC shunt tubing. 2. No hydrocephalus. 3. Atrophy [...] Tomography ACCESSION EXAM DATE/TIME PROCEDURE ORDERING PROVIDER [id number] 10/26/2021 11:[address] Head or Brain w/o JUNIE PINEDA, SARINA Contrast CPT code 86908 Reason For Exam (CT Head or Brain w/o Contrast) hydrocephalus. thank you Report CLINICAL INFORMATION: Hydrocephalus. Shunt. 3 mm axial cuts through the head are obtained without IV contrast. The examination is compared to a previous study dated 06/29/2014. FINDINGS: Old BRAKE REPAIR MECHANIC shunt tubing is noted bilaterally. The new [...] are clear. IMPRESSION: 1. Old and new BRAKE REPAIR MECHANIC shunt tubing. 2. No hydrocephalus. 3. Atrophy [...] Tomography ACCESSION EXAM DATE/TIME PROCEDURE ORDERING PROVIDER [id number] 10/26/2021 11:[address] Head or Brain w/o LOISJUNIE MASON, SARINA Contrast CPT code 93632 Reason For Exam (CT Head or Brain w/o Contrast) hydrocephalus. thank you Report CLINICAL INFORMATION: Hydrocephalus. Shunt. 3 mm axial cuts through the head are obtained without IV contrast. The examination is compared to a previous study dated 06/29/2014. FINDINGS: Old BRAKE REPAIR MECHANIC shunt tubing is noted bilaterally. The new [...] are clear. IMPRESSION: 1. Old and new BRAKE REPAIR MECHANIC shunt tubing. 2. No hydrocephalus. 3. Atrophy and evidence of small-vessel ischemic disease. 4. No CT evidence of an acute intracranial process. Report Dictated on Final Dictating Physician: MD SOLANO JEFFREY Signed Date and Time: 10/26/2021 11:42 am Signed by: MD SOLANO JEFFREY Transcribed Date and Time: 10/26/2021 11:43 Normal [facility] EEG awake and asleepon 10-26 Bony Tompkins MD 10/26/2021 4:06 PM [facility] [address] [place] [address] ROUTINE EEG REPORT Patient Name: Andrew Sifuentes : 1950 Date of Study: 10/26/2021 Duration Recorded: 23 minutes EEG#: [id number] ELASTIC ATTACHER COVERSTITCH: CASTRO PROVIDER REQUESTING STUDY: Dr. Barreto REASON FOR EXAM: seizures HISTORY: Andrew Sifuentes is a 71 y.o. male with history of obstructive hydrocephalus s/p [employer] shunt in 1987, needing multiple revisions and [...] normal limits and both old and new [employer] shunt tubing noted. At present patient is awake, follows commands, was able to tell his name, and that he was in hospital but not oriented to time. Per documentation patient had NCSE in May 2021, was on Vimpat, but it was discontinued as there was no evidence of recurrent seizures in July 2021 by Neurology at [facility], per daughter patient was on Dilantin for 31 yrs. Per daughter patient had seizures in the past and also felt he had staring episodes this morning. Leonid daughter patient has been essentially bed bound in [place] since May 2021 but prior to that [...] study with video was carried out at [facility]. Scalp electrodes were positioned in person by an cytotechnologist/cytology supervisor, following patient education, according to the 10-20 International system of electrode placement and maintained for integrity and quality of the recording. EEG data with video was recorded continuously and digitally stored. The cytotechnologist/cytology supervisor reviewed all automated detections and manual events [...] No normal vari (more content not included)... [employer] Work Phone: [employer] Work Phone: No Panel Informationon 10-26 Radiology Study observation (narrative) [employer] Work Phone: Prothrombin Timeon 2 INR 1.9 High 0.9-1.1 [facility] [employer] Comment on above: Result Comment: Harry mmended [...] Infarction Performed By: #### C OVAG #### [facility] [address] [place] [address] PT Coag (PPP) [Time] 19.7 s High 9.0-12.0 [facility] [employer] Comment on above: Result Comment: . Performed By: #### C OVAG #### [employer] [address] [place] [address] Protime-INRon 10-26-2021 INR Coag (Bld) [Relative time] 1.9 {INR} High [facility] Work Phone: Comment on above: Recommended Anticoag [...] Interpretation and review of laboratory results Abnormal [facility] Work Phone: PT Coag (PPP) [Time] 19.7 s High 9.0 - 12.0 s [facility] Work Phone: Comment on above: . Test Performed by [facility], [address], [place] [address] [facility] Work Phone: CA 19-9on 10-25-2021 CA 19-9 17 U/mL Normal <=35 [facility] Work Phone: Comment on above: INTERPRETIVE [...] or absence of malignant disease. Performed By: [place] [address] Residential Housekeeper: Quiana Castro MD Result Comment: INTE RPRETIVE [...] or absence of malignant disease. Performed By: [employer] [place] [id number] Residential Housekeeper: Quiana Castro MD Performed By: #### C OVAG #### [facility] [address] [place] [address] Cancer Antigen 19-9on 2021 [facility] Work Phone: Prothrombin Timeon 2 INR 1.5 High 0.9-1.1 [facility] Comment on above: Result Comment: Harry mmended [...] Infarction Performed By: #### P T #### [facility] [address] [place] [address] PT Coag (PPP) [Time] 15.6 s High 9.0-12.0 [facility] Comment on above: Result Comment: . Performed By: #### P T #### [facility] [address] [place] [address] Protime-INRon 10-25-2021 INR Coag (Bld) [Relative time] 1.5 {INR} High [facility] Work Phone: Comment on above: Recommended [...] Interpretation and review of laboratory results Abnormal [facility] Work Phone: PT Coag (PPP) [Time] 15.6 s High 9.0 - 12.0 s [facility] Work Phone: Comment on above: . Test Performed by [facility], [address] [place], [place] [id number] [place] [address] LAB [facility] Work Phone: B-2 Glycoprotein (IGA)on Beta-2 Glyco 1 IgA <2.0 U/mL [facility] Work Phone: Comment on above: Interpretive Informa tion: Results equal to or greater than 20 U/mL = POSITIVE Results less than 20 U/mL = NEGATIVE B2 Glycoprotein I (IgM) Abon 10-24-2021 Beta-2 Glyco 1 IgM <1.5 U/mL [facility] Work Phone: Comment on above: Interpretive Informa tion: Results equal to or greater than 20 U/mL = POSITIVE Results less than 20 U/mL = NEGATIVE B2 Glycoprotein I Igg Abon 0 10-24-2021 Beta-2 Glyco 1 IgG <1.4 U/mL [facility] Work Phone: Comment on above: Interpretive Informa tion: Results equal to or greater than 20 U/mL = POSITIVE Results less than 20 U/mL = NEGATIVE Basic Metabolic Panelon 10-06 Anion gap [Moles/Vol] 8 mmol/L Normal 3-13 [facility] Comment on above: Performed By: #### C A19O, LUPUS #### The performing lab is in the report. #### NSEO #### [facility] #### HEMDF, LDH3, BMP3, MG3, PT, CEA2 #### [facility] [address] [place] [address] #### B2GPM, B2GPA, B2GPG #### [facility] [address] [place] [address] Calcium [Mass/Vol] 8.8 mg/dL Normal 8.4-10.4 [facility] Comment on above: Performed By: #### C A19O, LUPUS #### The performing lab is in the report. #### NSEO #### [facility] #### HEMDF, LDH3, BMP3, MG3, PT, CEA2 #### [facility] [address] [place] [address] #### B2GPM, B2GPA, B2GPG #### [address] CO2 [Moles/Vol] 25 mmol/L Normal 22-30 [facility] Comment on above: Performed By: #### C A19O, LUPUS #### The performing lab is in the report. #### NSEO #### [facility] #### HEMDF, LDH3, BMP3, MG3, PT, CEA2 #### [facility] [address] [place] [address] #### B2GPM, B2GPA, B2GPG #### [address] Creatinine [Mass/Vol] 0.74 mg/dL Normal 0.52-1.25 [facility] Comment on above: Performed By: #### C A19O, LUPUS #### The performing lab is in the report. #### NSEO #### [facility] #### HEMDF, LDH3, BMP3, MG3, PT, CEA2 #### [facility] [address] [place] [address] #### B2GPM, B2GPA, B2GPG #### [address] eGFR OTHER > 90.0 Normal >60 [facility] Comment on above: Result Comment: KDIG O [...] HEMDF, LDH3, BMP3, MG3, PT, CEA2 #### [facility] [address] [place] [address] #### B2GPM, B2GPA, B2GPG #### [address] GFR/1.73 sq M.predicted among blacks MDRD (S/P/Bld) [Vol rate/Area] mL/min/{1.73_m2} Normal >60 [facility] Comment on above: Performed By: #### C A19O, LUPUS #### The performing lab is in the report. #### NSEO #### [facility] #### HEMDF, LDH3, BMP3, MG3, PT, CEA2 #### [place] [address] [place] [address] #### B2GPM, B2GPA, B2GPG #### [address] Glucose [Mass/Vol] 116 mg/dL High 70-100 [facility] Comment on above: Performed By: #### C A19O, LUPUS #### The performing lab is in the report. #### NSEO #### [facility] #### HEMDF, LDH3, BMP3, MG3, PT, CEA2 #### [address] [place] [address] #### B2GPM, B2GPA, B2GPG #### [address] Urea nitrogen [Mass/Vol] 19 mg/dL High 7-17 [facility] Comment on above: Performed By: #### C A19O, LUPUS #### The performing lab is in the report. #### NSEO #### [facility] #### HEMDF, LDH3, BMP3, MG3, PT, CEA2 #### [place] [address] [place] [address] #### B2GPM, B2GPA, B2GPG #### [address] Chloride [Moles/Vol] 107 mmol/L Normal 98-107 [facility] Comment on above: Performed By: #### C A19O, LUPUS #### The performing lab is in the report. #### NSEO #### [facility] #### HEMDF, LDH3, BMP3, MG3, PT, CEA2 #### [place] [address] [place] #### B2GPM, B2GPA, B2GPG #### [address] Potassium [Moles/Vol] 3.9 mmol/L Normal 3.5-5.1 [facility] Comment on above: Performed By: #### C A19O, LUPUS #### The performing lab is in the report. #### NSEO #### [facility] #### HEMDF, LDH3, BMP3, MG3, PT, CEA2 #### [place] [address] [place] [address] #### B2GPM, B2GPA, B2GPG #### [address] Sodium [Moles/Vol] 140 mmol/L Normal 135-145 [facility] Comment on above: Performed By: #### C A19O, LUPUS #### The performing lab is in the report. #### NSEO #### [facility] #### HEMDF, LDH3, BMP3, MG3, PT, CEA2 #### [place] [address] [place] [address] #### B2GPM, B2GPA, B2GPG #### [address] Anion gap [Moles/Vol] 8 mmol/L 3 - 13 mmol/L [facility] Calcium [Mass/Vol] 8.8 mg/dL 8.4 - 10. 4 mg/dL [facility] Chloride [Moles/Vol] 107 mmol/L 98 - 10 7 mmol/L [facility] CO2 [Moles/Vol] 25 mmol/L 22 - 30 mmol/L [facility] Creatinine [Mass/Vol] 0.74 mg/dL 0.52 - 1.25 mg/dL [facility] EGFR IF NonAfrican Armenian >90.0 >60 mL/min [facility] Comment on above: [...] - 17 mg/dL [facility] Test Performed by [facility], [address], [place], [place] [id number] [place] [address] LAB [facility] Beta-2 Glycoprotein I IgAon 10-24-2021 Beta-2 Glycoprotein I IgA < 2.0 Normal [facility] Comment on above: Result Comment: Inte rpretive Information: Results equal to or greater than 20 U/mL = POSITIVE Results less than 20 U/mL = NEGATIVE Performed By: #### C OVAG #### [facility] [address] [place] [address] Beta-2 Glycoprotein I IgGon 10-24-2021 Beta-2 Glycoprotein I IgG < 1.4 Normal [facility] Comment on above: Result Comment: Inte rpretive Information: Results equal to or greater than 20 U/mL = POSITIVE Results less than 20 U/mL = NEGATIVE Performed By: #### C OVAG #### [facility] [address] [place] [address] Beta-2 Glycoprotein I IgMon 10-24-2021 Beta-2 Glycoprotein I IgM < 1.5 Normal [facility] Comment on above: Result Comment: Inte rpretive Information: Results equal to or greater than 20 U/mL = POSITIVE Results less than 20 U/mL = NEGATIVE Performed By: #### C OVAG #### [facility] [address] [place] [address] No Panel Informationon 10-24 [facility] Test Performed by [facility], [address] [place] [id number] [facility] Work Phone: PROTEIN C FUNCTIONALon 10-24 Interpretation and review of laboratory results Abnormal [facility] Protein C-Functional 185 % High 83 - [...] reference intervals for this test in the [facility] ([employer]). Performed by [facility] [employer], [address] [place] [id number] [email or web address], Quiana Castro MD - Lab. Director Protein C, Functionalon 10-06 Protein C, Functional 185 % High 83-168 [facility] Comment on above: Result Comment: INTE [...] reference intervals for this test in the [facility] ([employer]). Performed by [facility], [address] [place] [address] www.[email or web address], Quiana Castro MD - Lab. Director Performed By: #### P T #### [facility] [address] [place] [address] Protein S, Functionalon 10-06 Protein S, Functional 138 % Normal 66-143 [facility] Comment on above: INTERPRETIVE INFORMA TION: Protein [...] reference intervals for this test in the [facility] ([employer]). Performed by [facility], [address] [place] [address] www.[email or web address], Quiana Castro MD - Lab. Director Result [...] reference intervals for this test in the [facility] ([employer]). Performed by [facility], [address] [place] [address] www.[email or web address], Quiana Castro MD - Lab. Director Performed By: #### P T #### [facility] [address] [place] [address] Prothrombin Timeon 2 INR 1.2 High 0.9-1.1 [facility] Comment on above: Result Comment: Harry mmended [...] HEMDF, LDH3, BMP3, MG3, PT, CEA2 #### [address] [place] [address] #### B2GPM, B2GPA, B2GPG #### [address] PT Coag (PPP) [Time] 12.6 s High 9.0-12.0 [facility] Comment on above: Result Comment: . Performed By: #### C A19O, LUPUS #### The performing lab is in the report. #### NSEO #### [facility] #### HEMDF, LDH3, BMP3, MG3, PT, CEA2 #### [address] [place] [address] #### B2GPM, B2GPA, B2GPG #### [address] Protime-INRon 10-24-2021 INR Coag (Bld) [Relative time] 1.2 {INR} High [facility] Comment on above: Recommended Anticoag ulant [...] Interpretation and review of laboratory results Abnormal [facility] PT Coag (PPP) [Time] 12.6 s High 9.0 - 12.0 s [facility] Comment on above: . Test Performed by [facility], [address] [place] [address] [facility] Basic Metabolic Panelon - Anion gap [Moles/Vol] 10 mmol/L Normal 3-13 [facility] Comment on above: Performed By: #### C A19O, LUPUS #### The performing lab is in the report. #### NSEO #### [facility] #### HEMDF, LDH3, BMP3, MG3, PT, CEA2 #### [facility] [address] [place] [address] #### B2GPM, B2GPA, B2GPG #### [facility] [address] [place] [address] Calcium [Mass/Vol] 9.6 mg/dL Normal 8.4-10.4 [facility] Comment on above: Performed By: #### C A19O, LUPUS #### The performing lab is in the report. #### NSEO #### [facility] #### HEMDF, LDH3, BMP3, MG3, PT, CEA2 #### [facility] [address] [place] [address] #### B2GPM, B2GPA, B2GPG #### [facility] [address] [place] [address] CO2 [Moles/Vol] 27 mmol/L Normal 22-30 [facility] Comment on above: Performed By: #### C A19O, LUPUS #### The performing lab is in the report. #### NSEO #### [facility] #### HEMDF, LDH3, BMP3, MG3, PT, CEA2 #### [facility] [address] [place] [address] #### B2GPM, B2GPA, B2GPG #### [address] Glucose [Mass/Vol] 109 mg/dL High 70-100 [facility] Comment on above: Performed By: #### C A19O, LUPUS #### The performing lab is in the report. #### NSEO #### [facility] #### HEMDF, LDH3, BMP3, MG3, PT, CEA2 #### [address] [place], [place] #### B2GPM, B2GPA, B2GPG #### [address] Urea nitrogen [Mass/Vol] 18 mg/dL High 7-17 [facility] Comment on above: Performed By: #### C A19O, LUPUS #### The performing lab is in the report. #### NSEO #### [facility] #### HEMDF, LDH3, BMP3, MG3, PT, CEA2 #### [address] [place], [place] #### B2GPM, B2GPA, B2GPG #### [address] Creatinine [Mass/Vol] 0.82 mg/dL Normal 0.52-1.25 [facility] Comment on above: Performed By: #### C A19O, LUPUS #### The performing lab is in the report. #### NSEO #### [facility] #### HEMDF, LDH3, BMP3, MG3, PT, CEA2 #### [address] [place], [place] #### B2GPM, B2GPA, B2GPG #### [address] GFR/1.73 sq M.predicted among blacks MDRD (S/P/Bld) [Vol rate/Area] mL/min/{1.73_m2} Normal >60 [facility] Comment on above: Performed By: #### C A19O, LUPUS #### The performing lab is in the report. #### NSEO #### [facility] #### HEMDF, LDH3, BMP3, MG3, PT, CEA2 #### [facility] [address] [place] [address] #### B2GPM, B2GPA, B2GPG #### [facility] [address] [place] [address] GFR/1.73 sq M.predicted among non-blacks MDRD (S/P/Bld) [Vol rate/Area] 89.9 mL/min/{1.73_m2} Normal >60 [facility] Comment on above: Result Comment: KDIG O [...] tubular creatinine secretion. Performed By: #### C A19Elpidio LUPUS #### The performing lab is in the report. #### NSEO #### [facility] #### HEMDF, LDH3, BMP3, MG3, PT, CEA2 #### [facility] [address] [place] [address] #### B2GPM, B2GPA, B2GPG #### [address] [address] Chloride [Moles/Vol] 104 mmol/L Normal 98-107 [facility] Comment on above: Performed By: #### C A19O LUPUS #### The performing lab is in the report. #### NSEO #### [facility] #### HEMDF, LDH3, BMP3, MG3, PT, CEA2 #### [facility] [address] [place] [address] #### B2GPM, B2GPA, B2GPG #### [address] Potassium [Moles/Vol] 3.9 mmol/L Normal 3.5-5.1 [facility] Comment on above: Performed By: #### C A19O, LUPUS #### The performing lab is in the report. #### NSEO #### [facility] #### HEMDF, LDH3, BMP3, MG3, PT, CEA2 #### [place] [address] [place] [address] #### B2GPM, B2GPA, B2GPG #### [address] Sodium [Moles/Vol] 142 mmol/L Normal 135-145 [facility] Comment on above: Performed By: #### C A19O, LUPUS #### The performing lab is in the report. #### NSEO #### [facility] #### HEMDF, LDH3, BMP3, MG3, PT, CEA2 #### [place] [address] [place] [address] #### B2GPM, B2GPA, B2GPG #### [address] Anion gap [Moles/Vol] 10 mmol/L 3 - 13 mmol/L [facility] Work Phone: [phone] Calcium [Mass/Vol] 9.6 mg/dL 8.4 - 10. 4 mg/dL [facility] Work Phone: [phone] Chloride [Moles/Vol] 104 mmol/L 98 - 10 7 mmol/L [facility] Work Phone: [phone] CO2 [Moles/Vol] 27 mmol/L 22 - 30 mmol/L [facility] Work Phone: [phone] Creatinine [Mass/Vol] 0.82 mg/dL 0.52 - 1.25 mg/dL [employer] Work Phone: [phone] EGFR IF NonAfrican Armenian 89.9 mL/min >60 [facility] Work Phone: [phone] Comment on above: KDIGO guidelines pro vide [...] MDRD (S/P/Bld) [Vol rate/Area] mL/min/{1.73_m2} >60 mL/min [facility] Work Phone: Glucose [Mass/Vol] 109 mg/dL High 70 - 100 mg/dL [facility] Work Phone: [phone] Interpretation and review of laboratory results Abnormal [facility] Work Phone: [phone] Potassium [Moles/Vol] 3.9 mmol/L 3.5 - 5.1 mmol/L [facility] Work Phone: [phone] Sodium [Moles/Vol] 142 mmol/L 135 - 145 mmol/L [facility] Work Phone: Urea nitrogen (BldV) [Mass/Vol] 18 mg/dL High 7 - 17 mg/dL [facility] Work Phone: CBC with Auto Differentialon 10-23-2021 Absolute Baso # 0.1 10*3/uL 0.0 - 0.2 10*3/uL [facility] Work Phone: Absolute Neut # 6.6 10*3/uL 1.8 - 7.0 10*3/uL [facility] Work Phone: [phone] Basophils/100 WBC (Bld) 1.1 % 0.0 - 2.0 % [facility] Work Phone: [phone] 222 Eosinophils (Bld) [#/Vol] 0.4 10*3/uL 0.0 - 0.5 10*3/uL [facility] Work Phone: [phone] 222 Eosinophils/100 WBC (Bld) 3.9 % 1.0 - 6.0 % [employer] Work Phone: [phone]() 222 Granulocytes/100 WBC (Bld) 64.0 % 40.0 - 80.0 % [facility] Work Phone: [phone] Hematocrit (Bld) [Volume fraction] 35.1 % Low 40.0 - 52.0 % [employer] Work Phone: [phone] Hemoglobin (Bld) [Mass/Vol] 11.6 g/dL Low 13.0 - 18.0 g/dL [employer] Work Phone: [phone] Interpretation and review of laboratory results Abnormal [employer] Work Phone: [phone] 222 Lymphocytes (Bld) [#/Vol] 2.6 10*3/uL 1.0 - 4.3 10*3/uL [employer] Work Phone: [phone] 222 Lymphocytes/100 WBC (Bld) 25.0 % 20.0 - 40.0 % [employer] Work Phone: [phone] MCH (RBC) [Entitic mass] 28.4 pg 26.0 - 34.0 pg [facility] Work Phone: [phone] 222 MCHC (RBC) [Mass/Vol] 33.1 % 32.0 - 36.0 % [facility] Work Phone: [phone] MCV (RBC) [Entitic vol] 85.9 fL 80.0 - 98.0 fL [facility] Work Phone: [phone] 222 Monocytes (Bld) [#/Vol] 0.6 10*3/uL 0.0 - 0.8 10*3/uL [facility] Work Phone: [phone] Monocytes/100 WBC (Bld) 6.0 % 2.0 - 10.0 % [facility] Work Phone: [phone] Platelet distribution width (Bld) [Ratio] 17.4 % High 11.5 - 14.5 % [facility] Work Phone: [phone] Platelet mean volume (Bld) [Entitic vol] 8.1 fL 7.4 - 12.4 fL [facility] Work Phone: [phone] Comment on above: MPV is a calculated measurement using platelet volume ratio. Platelets (Bld) [#/Vol] 450 10*3/uL High 140 - 440 10*3/uL [facility] Work Phone: [phone] RBC (Bld) [#/Vol] 4.08 10*6/uL Low 4.40 - 5.9 0 10*6/uL [facility] Work Phone: [phone] WBC (Bld) [#/Vol] 10.3 10*3/uL 3.6 - 10.7 10*3/uL [facility] Work Phone: [phone] Test Performed by [facility], [address] [place] [address] [place], [place] [id number] [place] [address] LAB [facility] Work Phone: [phone] CEAon 10-23-2021 CEA 0.8 ng/mL 0.0 - 3.0 ng/mL [facility] Work Phone: [phone] Test Performed by [facility], [address] [place] [address] [place], [place] [id number] [place] [address] LAB [facility] Work Phone: [phone] Carcinoembryonic Agon 2021 Carcinoembryonic Ag. 0.8 ng/mL Normal 0.0-3.0 [facility] [employer] Comment on above: Performed By: #### C A19O, LUPUS #### The performing lab is in the report. #### NSEO #### [facility] #### HEMDF, LDH3, BMP3, MG3, PT, CEA2 #### [facility] [address] [place] [address] #### B2GPM, B2GPA, B2GPG #### [facility] [address] Hemogram w/ Autodiffon 10-23 Abs Baso Cnt 0.1 10*3/uL Normal 0.0-0.2 [facility] Comment on above: Performed By: #### C A19O, LUPUS #### The performing lab is in the report. #### NSEO #### [facility] #### HEMDF, LDH3, BMP3, MG3, PT, CEA2 #### [facility] [address] [place] [address] #### B2GPM, B2GPA, B2GPG #### [address] Abs Neutrophile Cnt 6.6 10*3/uL Normal 1.8-7.0 [facility] Comment on above: Performed By: #### C A19O, LUPUS #### The performing lab is in the report. #### NSEO #### [facility] #### HEMDF, LDH3, BMP3, MG3, PT, CEA2 #### [facility] [address] [place], [place] #### B2GPM, B2GPA, B2GPG #### [address] Basophils/100 WBC (Bld) 1.1 % Normal 0.0-2.0 [facility] Comment on above: Performed By: #### C A19O, LUPUS #### The performing lab is in the report. #### NSEO #### [facility] #### HEMDF, LDH3, BMP3, MG3, PT, CEA2 #### [facility] [address] [place], [place] #### B2GPM, B2GPA, B2GPG #### [address] Eosinophils (Bld) [#/Vol] 0.4 10*3/uL Normal 0.0-0.5 [facility] Comment on above: Performed By: #### C A19O, LUPUS #### The performing lab is in the report. #### NSEO #### [facility] #### HEMDF, LDH3, BMP3, MG3, PT, CEA2 #### [facility] [address] [facility] [place] [address] #### B2GPM, B2GPA, B2GPG #### [address] [address] Eosinophils/100 WBC (Bld) 3.9 % Normal 1.0-6.0 [facility] Comment on above: Performed By: #### C A19O, LUPUS #### The performing lab is in the report. #### NSEO #### [facility] #### HEMDF, LDH3, BMP3, MG3, PT, CEA2 #### [address] [place] #### B2GPM, B2GPA, B2GPG #### [address] [address] Erythrocyte distribution width (RBC) [Ratio] 17.4 % High 11.5-14.5 [facility] Comment on above: Performed By: #### C A19O, LUPUS #### The performing lab is in the report. #### NSEO #### [facility] #### HEMDF, LDH3, BMP3, MG3, PT, CEA2 #### [address] [place] #### B2GPM, B2GPA, B2GPG #### [address] [address] Granulocytes/100 WBC (Bld) 64.0 % Normal 40.0-80.0 [facility] Comment on above: Performed By: #### C A19O, LUPUS #### The performing lab is in the report. #### NSEO #### [facility] #### HEMDF, LDH3, BMP3, MG3, PT, CEA2 #### [place] [address] [place], [place] #### B2GPM, B2GPA, B2GPG #### [address] Hematocrit (Bld) [Volume fraction] 35.1 % Low 40.0-52.0 [facility] Comment on above: Performed By: #### C A19O, LUPUS #### The performing lab is in the report. #### NSEO #### [facility] #### HEMDF, LDH3, BMP3, MG3, PT, CEA2 #### [facility] [address] [place], [place] #### B2GPM, B2GPA, B2GPG #### [address] Hemoglobin (Bld) [Mass/Vol] 11.6 g/dL Low 13.0-18.0 [facility] Comment on above: Performed By: #### C A19O, LUPUS #### The performing lab is in the report. #### NSEO #### [facility] #### HEMDF, LDH3, BMP3, MG3, PT, CEA2 #### [facility] [address] [place], [place] #### B2GPM, B2GPA, B2GPG #### [address] Lymphocytes (Bld) [#/Vol] 2.6 10*3/uL Normal 1.0-4.3 [facility] Comment on above: Performed By: #### C A19O, LUPUS #### The performing lab is in the report. #### NSEO #### [facility] #### HEMDF, LDH3, BMP3, MG3, PT, CEA2 #### [facility] [address] [place], [place] #### B2GPM, B2GPA, B2GPG #### [address] Lymphocytes/100 WBC (Bld) 25.0 % Normal 20.0-40.0 [facility] Comment on above: Performed By: #### C A19O, LUPUS #### The performing lab is in the report. #### NSEO #### [facility] #### HEMDF, LDH3, BMP3, MG3, PT, CEA2 #### [facility] [address] [facility] [place] [place] #### B2GPM, B2GPA, B2GPG #### [address] MCH (RBC) [Entitic mass] 28.4 pg Normal 26.0-34.0 [facility] Comment on above: Performed By: #### C A19O, LUPUS #### The performing lab is in the report. #### NSEO #### [facility] #### HEMDF, LDH3, BMP3, MG3, PT, CEA2 #### [address] [place], [place] #### B2GPM, B2GPA, B2GPG #### [address] MCHC 33.1 % Normal 32.0-36.0 [facility] Comment on above: Performed By: #### C A19O, LUPUS #### The performing lab is in the report. #### NSEO #### [facility] #### HEMDF, LDH3, BMP3, MG3, PT, CEA2 #### [address] [place], [place] #### B2GPM, B2GPA, B2GPG #### [address] MCV (RBC) [Entitic vol] 85.9 fL Normal 80.0-98.0 [facility] Comment on above: Performed By: #### C A19O, LUPUS #### The performing lab is in the report. #### NSEO #### [facility] #### HEMDF, LDH3, BMP3, MG3, PT, CEA2 #### [address] [place], [place] #### B2GPM, B2GPA, B2GPG #### [address] Monocytes (Bld) [#/Vol] 0.6 10*3/uL Normal 0.0-0.8 [facility] Comment on above: Performed By: #### C A19O, LUPUS #### The performing lab is in the report. #### NSEO #### [facility] #### HEMDF, LDH3, BMP3, MG3, PT, CEA2 #### [facility] [address] [place], [place] #### B2GPM, B2GPA, B2GPG #### [address] Monocytes/100 WBC (Bld) 6.0 % Normal 2.0-10.0 [facility] Comment on above: Performed By: #### C A19O, LUPUS #### The performing lab is in the report. #### NSEO #### [facility] #### HEMDF, LDH3, BMP3, MG3, PT, CEA2 #### [facility] [address] [place], [place] #### B2GPM, B2GPA, B2GPG #### [address] Platelet mean volume (Bld) [Entitic vol] 8.1 fL Normal 7.4-12.4 [facility] Comment on above: Result Comment: MPV is a calculated measurement using platelet volume ratio. Performed By: #### C A19O, LUPUS #### The performing lab is in the report. #### NSEO #### [facility] #### HEMDF, LDH3, BMP3, MG3, PT, CEA2 #### [facility] [address] [place], [place] #### B2GPM, B2GPA, B2GPG #### [address] Platelets (Bld) [#/Vol] 450 10*3/uL High 140-440 [facility] Comment on above: Performed By: #### C A19O, LUPUS #### The performing lab is in the report. #### NSEO #### [facility] #### HEMDF, LDH3, BMP3, MG3, PT, CEA2 #### [facility] [address] [place] [address] #### B2GPM, B2GPA, B2GPG #### [address] RBC (Bld) [#/Vol] 4.08 10*6/uL Low 4.40-5.90 [facility] Comment on above: Performed By: #### C A19O, LUPUS #### The performing lab is in the report. #### NSEO #### [facility] #### HEMDF, LDH3, BMP3, MG3, PT, CEA2 #### [facility] [address] [place], [place] #### B2GPM, B2GPA, B2GPG #### [address] WBC (Bld) [#/Vol] 10.3 10*3/uL Normal 3.6-10.7 [facility] Comment on above: Performed By: #### C A19O, LUPUS #### The performing lab is in the report. #### NSEO #### [facility] #### HEMDF, LDH3, BMP3, MG3, PT, CEA2 #### [facility] [address] [place], [place] #### B2GPM, B2GPA, B2GPG #### [address] LDHon 10-23-2021 LDH 136 U/L Normal 120-246 [facility] Comment on above: Performed By: #### C A19O, LUPUS #### The performing lab is in the report. #### NSEO #### [facility] #### HEMDF, LDH3, BMP3, MG3, PT, CEA2 #### [employer] [facility] [facility] [address] [place] [address] #### B2GPM, B2GPA, B2GPG #### [employer] [facility] [facility] [address] [facility] [place] [place] [address] Lactate Dehydrogenaseon 06- LD 136 U/L 120 - 246 U/L [facility] Work Phone: MRI ABDOMEN WO CONTRASTon Patient Name: ANDRWE SIFUENTES Magnetic Resonance Imaging ACCESSION EXAM DATE/TIME PROCEDURE ORDERING PROVIDER [id number] 10/23/2021 11:08 EDT MRI Abdomen w/o Contrast SRIVASTAVAWING CPT code 02344 Reason For Exam (MRI Abdomen w/o Contrast) [...] Imaging ACCESSION EXAM DATE/TIME PROCEDURE ORDERING PROVIDER [id number] 10/23/2021 11:08 EDT MRI Abdomen w/o Contrast WING SRIVASTAVA CPT code 99362 Reason For Exam (MRI Abdomen w/o Contrast) [...] VLADIMIR Transcribed Date and Time: 10/23/2021 4:36 [facility] Work Phone: MRI ABDOMEN WO CONTRASTOrder ed By: Unknown Result on 10-23-2021 [facility] MRI Abdomen w/o Contraston 0 10-23-2021 MRI Abdomen w/o Contrast Patient Name: ANDREW SIFUENTES Magnetic Resonance Imaging ACCESSION EXAM DATE/TIME PROCEDURE ORDERING PROVIDER [id number] 10/23/2021 11:08 EDT MRI Abdomen w/o Contrast WING SRIVASTAVA CPT code 87293 Reason For Exam (MRI Abdomen w/o Contrast) [...] Transcribed Date and Time: 10/23/2021 4:36 Normal [facility] Magnesiumon 10-23-2021 Magnesium [Mass/Vol] 2.1 mg/dL Normal 1.6-2.3 [facility] Comment on above: Performed By: #### C A19O, LUPUS #### The performing lab is in the report. #### NSEO #### [facility] #### HEMDF, LDH3, BMP3, MG3, PT, CEA2 #### [facility] [address] [place] [address] #### B2GPM, B2GPA, B2GPG #### [facility] [address] [place] [address] Magnesium [Mass/Vol] 2.1 mg/dL 1.6 - 2 .3 mg/dL [facility] Work Phone: No Panel Informationon 10-23 Test Performed by [facility], [address] [place], [place] [id number] [place] [address] LAB [facility] Work Phone: Prothrombin Timeon 2 INR 1.1 Normal 0.9-1.1 [facility] Comment on above: Result Comment: Harry mmended [...] HEMDF, LDH3, BMP3, MG3, PT, CEA2 #### [address] [place] [address] #### B2GPM, B2GPA, B2GPG #### [address] [address] PT Coag (PPP) [Time] 12.2 s High 9.0-12.0 [facility] Comment on above: Result Comment: . Performed By: #### C A19O, LUPUS #### The performing lab is in the report. #### NSEO #### [facility] #### HEMDF, LDH3, BMP3, MG3, PT, CEA2 #### [address] [place] [address] #### B2GPM, B2GPA, B2GPG #### [address] [address] Protime-INRon 10-23-2021 INR Coag (Bld) [Relative time] 1.1 {INR} [facility] Work Phone: Comment on above: Recommended [...] [facility] Work Phone: PT Coag (PPP) [Time] 12.2 s High 9.0 - 12.0 s [facility] Work Phone: Comment on above: . Test Performed by [facility], [address] [place] [address] [facility] Work Phone: Basic Metabolic Panelon 10-05 Calcium [Mass/Vol] 8.9 mg/dL Normal 8.4-10.4 [facility] Comment on above: Performed By: #### P T #### [facility] [address] [place] [address] Glucose [Mass/Vol] 110 mg/dL High 70-100 [facility] Comment on above: Performed By: #### P T #### [facility] [address] [place] [address] Urea nitrogen [Mass/Vol] 14 mg/dL Normal 7-17 [facility] Comment on above: Performed By: #### P T #### [facility] [address] [place] [address] Anion gap [Moles/Vol] 7 mmol/L Normal 3-13 [facility] Comment on above: Performed By: #### P T #### [facility] [address] [place] [address] CO2 [Moles/Vol] 26 mmol/L Normal 22-30 [facility] Comment on above: Performed By: #### P T #### [facility] [address] [place] [address] Creatinine [Mass/Vol] 0.71 mg/dL Normal 0.52-1.25 [facility] Comment on above: Performed By: #### P T #### [facility] [address] [place] [address] eGFR OTHER > 90.0 Normal >60 [facility] Comment on above: Result Comment: KDIG O [...] secretion. Performed By: #### P T #### [facility] [address] [place] [address] GFR/1.73 sq M.predicted among blacks MDRD (S/P/Bld) [Vol rate/Area] mL/min/{1.73_m2} Normal >60 [facility] Comment on above: Performed By: #### P T #### [facility] [address] [place] [address] Potassium [Moles/Vol] 3.8 mmol/L Normal 3.5-5.1 [facility] Comment on above: Performed By: #### P T #### [facility] [address] [place] [address] Chloride [Moles/Vol] 106 mmol/L Normal 98-107 [facility] Comment on above: Performed By: #### P T #### [facility] [address] [place] [address] Sodium [Moles/Vol] 139 mmol/L Normal 135-145 [facility] Comment on above: Performed By: #### P T #### [facility] [address] [place] [address] Anion gap [Moles/Vol] 7 mmol/L 3 - 13 mmol/L [facility] Calcium [Mass/Vol] 8.9 mg/dL 8.4 - 10. 4 mg/dL [facility] Chloride [Moles/Vol] 106 mmol/L 98 - 10 7 mmol/L [facility] CO2 [Moles/Vol] 26 mmol/L 22 - 30 mmol/L [facility] Creatinine [Mass/Vol] 0.71 mg/dL 0.52 - 1.25 mg/dL [facility] EGFR IF NonAfrican Armenian >90.0 >60 mL/min [facility] Comment on above: KDIGO guidelines pro [...] - 10.7 10*3/uL [facility] Test Performed by [facility], [address] [place], [place] [id number] [place] [address] [facility] [address] Abdomen Pelvis Wo Contras ton 10-22-2021 Patient Name: ANDREW SIFUENTES Computed Tomography ACCESSION EXAM DATE/TIME PROCEDURE ORDERING PROVIDER [id number] 10/22/2021 13:[address] Abdomen/Pelvis (No SRIVASTAVA, WING PO, No IV) CPT code 10410 Reason For Exam (CT Abdomen/Pelvis (No PO, [...] Transcribed Date and Time: 10/22/2021 2:37 [facility] Humphrey Melton MD - 10/22/2021 Patient Name: ANDREW SIFUENTES Computed Tomography ACCESSION EXAM DATE/TIME PROCEDURE ORDERING PROVIDER [id number] 10/22/2021 13:[address] Abdomen/Pelvis (No SRIVASTAVA, WING PO, No IV) CPT code 49767 Reason For Exam (CT Abdomen/Pelvis (No PO, [...] Tomography ACCESSION EXAM DATE/TIME PROCEDURE ORDERING PROVIDER [id number] 10/22/2021 13:[address] Abdomen/Pelvis (No SRIVASTAVA, WING PO, No IV) CPT code 70544 Reason For Exam (CT Abdomen/Pelvis (No PO, [...] Transcribed Date and Time: 10/22/2021 2:37 Normal [facility] Hemogram w/ Autodiffon 10-22 Abs Baso Cnt 0.1 10*3/uL Normal 0.0-0.2 [facility] Comment on above: Performed By: #### P T #### [facility] [address] [place] [address] Abs Neutrophile Cnt 6.0 10*3/uL Normal 1.8-7.0 [facility] Comment on above: Performed By: #### P T #### [facility] [address] [place] [address] Basophils/100 WBC (Bld) 1.0 % Normal 0.0-2.0 [facility] Comment on above: Performed By: #### P T #### [facility] [address] [place] [address] Eosinophils (Bld) [#/Vol] 0.3 10*3/uL Normal 0.0-0.5 [facility] Comment on above: Performed By: #### P T #### [facility] [address] [place] [address] Eosinophils/100 WBC (Bld) 3.0 % Normal 1.0-6.0 [facility] Comment on above: Performed By: #### P T #### [facility] [address] [place] [address] Erythrocyte distribution width (RBC) [Ratio] 17.1 % High 11.5-14.5 [facility] Comment on above: Performed By: #### P T #### [facility] [address] [place] [address] Granulocytes/100 WBC (Bld) 64.1 % Normal 40.0-80.0 [facility] Comment on above: Performed By: #### P T #### [facility] [address] [place] [address] Hematocrit (Bld) [Volume fraction] 33.4 % Low 40.0-52.0 [facility] Comment on above: Performed By: #### P T #### [facility] [address] [place] [address] Hemoglobin (Bld) [Mass/Vol] 10.9 g/dL Low 13.0-18.0 [facility] Comment on above: Performed By: #### P T #### [facility] [address] [place] [address] Lymphocytes (Bld) [#/Vol] 2.5 10*3/uL Normal 1.0-4.3 [facility] Comment on above: Performed By: #### P T #### [facility] [address] [place] [address] Lymphocytes/100 WBC (Bld) 26.3 % Normal 20.0-40.0 [facility] Comment on above: Performed By: #### P T #### [facility] [address] [place] [address] MCH (RBC) [Entitic mass] 28.2 pg Normal 26.0-34.0 [facility] Comment on above: Performed By: #### P T #### [facility] [address] [place] [address] MCHC 32.7 % Normal 32.0-36.0 [facility] Comment on above: Performed By: #### P T #### [facility] [address] [place] [address] MCV (RBC) [Entitic vol] 86.3 fL Normal 80.0-98.0 [facility] Comment on above: Performed By: #### P T #### [facility] [address] [place] [address] Monocytes (Bld) [#/Vol] 0.5 10*3/uL Normal 0.0-0.8 [facility] Comment on above: Performed By: #### P T #### [facility] [address] [place] [address] Monocytes/100 WBC (Bld) 5.6 % Normal 2.0-10.0 [facility] Comment on above: Performed By: #### P T #### [facility] [address] [place] [address] Platelet mean volume (Bld) [Entitic vol] 7.6 fL Normal 7.4-12.4 [facility] Comment on above: Result Comment: MPV is a calculated measurement using platelet volume ratio. Performed By: #### P T #### [facility] [address] [place] [address] Platelets (Bld) [#/Vol] 369 10*3/uL Normal 140-440 [facility] Comment on above: Performed By: #### P T #### [facility] [address] [place] [address] RBC (Bld) [#/Vol] 3.87 10*6/uL Low 4.40-5.90 [facility] Comment on above: Performed By: #### P T #### [facility] [address] [place] [address] WBC (Bld) [#/Vol] 9.4 10*3/uL Normal 3.6-10.7 [facility] Comment on above: Performed By: #### P T #### [facility] [address] [place] [address] Magnesiumon 10-22-2021 Magnesium [Mass/Vol] 2.0 mg/dL Normal 1.6-2.3 [facility] Comment on above: Performed By: #### P T #### [facility] [address] [place] [address] Magnesium [Mass/Vol] 2.0 mg/dL 1.6 - 2 .3 mg/dL [facility] No Panel Informationon 10-22 Radiology Study observation (narrative) [facility] Work Phone: Test Performed by [facility], [address] [place], [place] [address] [facility] Prothrombin Timeon 2 INR 1.1 Normal 0.9-1.1 [facility] Comment on above: Result Comment: Harry mmended [...] HEMDF, LDH3, BMP3, MG3, PT, CEA2 #### [facility] [address] [place] [address] #### B2GPM, B2GPA, B2GPG #### [facility] [address] [place] [address] PT Coag (PPP) [Time] 11.8 s Normal 9.0-12.0 [facility] [employer] [facility] Comment on above: Result Comment: . Performed By: #### C A19O, LUPUS #### The performing lab is in the report. #### NSEO #### [facility] #### HEMDF, LDH3, BMP3, MG3, PT, CEA2 #### [facility] [address] [place] [address] #### B2GPM, B2GPA, B2GPG #### [facility] [address] [place] [address] Protime-INRon 10-22-2021 INR Coag (Bld) [Relative time] 1.1 {INR} [facility] Work Phone: Comment on above: Recommended [...] [Time] 11.8 s 9.0 - 12.0 s [facility] Work Phone: Comment on above: . Test Performed by [facility], [address], [place], [place] [address] [facility] Work Phone: VL Ankle Art Brachial Indice s Extremity Bilateralon 10-22-2021 [facility] Ankle Brachial Index Report Patient DO GurpreetB: 1950 Study 10/21/2021 Name: Andrew Gonzalez (71yrs) Date: Age: 71 Account: [id number] Gender: M Loc: 444W BP: Ordering Physician: Shruthi Malik Anesthesiologist Assistant: Rody Cross RDMS, RVT Interpreting Physician: Carina Call Location: [facility] Indications: Foot wounds. Originally ordered as a full PVR. Ordering INSPECTOR PLUG SEAM had to modify the order to ABIs [...] supine position. Images were obtained using a [employer]s vascular ultrasound machine. Arterial pressure indices: [...] electronically signed by Carina Call 10/22/2021 13:21 [facility] Carina Call MD - 10/22/2021 [facility] Ankle Brachial Index Report Patient DO GurpreetB: 1950 Study 10/21/2021 Name: Andrew Gonzalez () Date: Age: 71 Account: [id number] Gender: M Loc: 444W BP: Ordering Physician: Shruthi Malik Anesthesiologist Assistant: Rody Cross RDMS RVJamison Interpreting Physician: Carina Call Location: [facility] Indications: Foot wounds. Originally ordered as a full PVR. Ordering INSPECTOR PLUG SEAM had to modify the order to ABIs [...] supine position. Images were obtained using a [employer]s vascular ultrasound machine. Arterial pressure indices: [...] electronically signed by Carina Call 10/22/2021 13:21 [employer] Work Phone: [employer] Work Phone: Basic Metabolic Panelon 10-05 Calcium [Mass/Vol] 9.1 mg/dL Normal 8.4-10.4 [facility] [employer] Comment on above: Performed By: #### C OVAG #### [employer] [address] [place] [address] Anion gap [Moles/Vol] 6 mmol/L Normal 3-13 [facility] [employer] [facility] Comment on above: Performed By: #### C OVAG #### [employer] [address] [place] [address] CO2 [Moles/Vol] 29 mmol/L Normal 22-30 [facility] [employer] [facility] Comment on above: Performed By: #### C OVAG #### [employer] [address] [place] [address] Creatinine [Mass/Vol] 0.90 mg/dL Normal 0.52-1.25 [facility] Comment on above: Performed By: #### C OVAG #### [facility] [address] [place] [address] GFR/1.73 sq M.predicted among blacks MDRD (S/P/Bld) [Vol rate/Area] mL/min/{1.73_m2} Normal >60 [facility] Comment on above: Performed By: #### C OVAG #### [facility] [address] [place] [address] GFR/1.73 sq M.predicted among non-blacks MDRD (S/P/Bld) [Vol rate/Area] 86.6 mL/min/{1.73_m2} Normal >60 [facility] Comment on above: Result Comment: KDIG O [...] secretion. Performed By: #### C OVAG #### [facility] [address] [place] [address] Glucose [Mass/Vol] 106 mg/dL High 70-100 [facility] Comment on above: Performed By: #### C OVAG #### [facility] [address] [place] [address] Urea nitrogen [Mass/Vol] 18 mg/dL High 7-17 [facility] Comment on above: Performed By: #### C OVAG #### [facility] [address] [place] [address] Chloride [Moles/Vol] 105 mmol/L Normal 98-107 [facility] Comment on above: Performed By: #### C OVAG #### [facility] [address] [place] [address] Potassium [Moles/Vol] 4.3 mmol/L Normal 3.5-5.1 [facility] Comment on above: Performed By: #### C OVAG #### [facility] [address] [place] [address] Sodium [Moles/Vol] 139 mmol/L Normal 135-145 [facility] Comment on above: Performed By: #### C OVAG #### [facility] [address] [place] [address] Anion gap [Moles/Vol] 6 mmol/L 3 - 13 mmol/L [facility] Calcium [Mass/Vol] 9.1 mg/dL 8.4 - 10. 4 mg/dL [facility] Chloride [Moles/Vol] 105 mmol/L 98 - 10 7 mmol/L [facility] CO2 [Moles/Vol] 29 mmol/L 22 - 30 mmol/L [facility] Creatinine [Mass/Vol] 0.9 mg/dL 0.52 - 1.25 mg/dL [facility] EGFR IF NonAfrican Armenian 86.6 mL/min >60 [facility] Comment on above: KDIGO guidelines pro vide [...] - 17 mg/dL [facility] Test Performed by [facility], [address] [place], [address] LAB [facility] C-Reactive Proteinon 022 CRP [Mass/Vol] 33.5 mg/L High 0.0-9.9 [facility] Comment on above: Result Comment: . Performed By: #### P T #### [facility] [address] [place] [address] CRP [Mass/Vol] 33.5 mg/L High 0.0 - 9.9 mg/L [facility] Comment on above: . Interpretation and review of laboratory results Abnormal [facility] Test Performed by [facility], [address] [place], [address] LAB [facility] CR Calcaneus 2+ Views Lefton 10-21-2021 CR Calcaneus 2+ Views Left Patient Name: ANDREW SIFUENTES Diagnostic Radiology ACCESSION EXAM DATE/TIME PROCEDURE ORDERING PROVIDER [id number] 10/21/2021 15:30 EDT CR Calcaneus 2+ Views [id number] -SHRUTHI MALIK Left CPT code 37662 Reason For Exam (CR Calcaneus 2+ Views [...] Transcribed Date and Time: 10/21/2021 4:33 Normal [facility] CR Chest 1 View Frontalon CR Chest 1 View Frontal Patient Name: [id number] Radiology ACCESSION EXAM DATE/TIME PROCEDURE ORDERING PROVIDER [id number] 10/21/2021 08:16 EDT CR Chest 1 View Frontal [id number] MAY BOGGS CPT code 43324 Reason For Exam (CR Chest 1 View [...] Transcribed Date and Time: 10/21/2021 8:33 Normal [facility] D-Dimer, Innovanceon 022 D-Dimer, Innovance 1.51 mg/L High <0.19-0.50 [facility] Comment on above: Result Comment: Inno saba D-Dimer values of <0.50 mg/L FEU can be used in combination with a pre-test probability model (e.g. Well's) to exclude pulmonary embolism (PE) disease, as well as an aid in the diagnosis of deep vein thrombosis (DVT). Performed By: #### P T #### [facility] [address] [place] [address] D-Dimer, Quantitativeon 10-05 D-Dimer, Quant 1.51 mg/L High <0.19 - 0.50 [facility] Comment on above: [facility] D-Dimer va lues of <0.50 mg/L FEU can be used in combination with a pre-test probability model (e.g. Well's) to exclude pulmonary embolism (PE) disease, as well as an aid in the diagnosis of deep vein thrombosis (DVT). Interpretation and review of laboratory results Abnormal [facility] Test Performed by [facility], [address], [place], [place] [address] [facility] ED Provider Noteon 2 ED Provider Note [facility] ED EMERGENCY DEPARTMENT ENCOUNTER Pt Name: [...] (HCC) ? Kidney stone ? Neuropathy ? 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 Attends [employer]: Not on file ? Active Member [...] LUNGS: Respirations (more content not included)... Normal [facility] [employer] Hemogramon 10-21-2021 Erythrocyte distribution width (RBC) [Ratio] 17.3 % High 11.5-14.5 [facility] [employer] Comment on above: Performed By: #### C OVAG #### [facility] [address] [place] [address] Hematocrit (Bld) [Volume fraction] 33.6 % Low 40.0-52.0 [facility] Comment on above: Performed By: #### C OVAG #### [facility] [address] [place] [address] Hemoglobin (Bld) [Mass/Vol] 10.9 g/dL Low 13.0-18.0 [facility] Comment on above: Performed By: #### C OVAG #### [facility] [address] [place] [address] MCH (RBC) [Entitic mass] 27.8 pg Normal 26.0-34.0 [facility] Comment on above: Performed By: #### C OVAG #### [facility] [address] [place] [address] MCHC 32.5 % Normal 32.0-36.0 [facility] Comment on above: Performed By: #### C OVAG #### [facility] [address] [place] [address] MCV (RBC) [Entitic vol] 85.6 fL Normal 80.0-98.0 [facility] Comment on above: Performed By: #### C OVAG #### [facility] [address] [place] [address] Platelet mean volume (Bld) [Entitic vol] 7.7 fL Normal 7.4-12.4 [facility] Comment on above: Result Comment: MPV is a calculated measurement using platelet volume ratio. Performed By: #### C OVAG #### [facility] [address] [place] [address] Platelets (Bld) [#/Vol] 404 10*3/uL Normal 140-440 [facility] Comment on above: Performed By: #### C OVAG #### [facility] [address] [place] [address] RBC (Bld) [#/Vol] 3.93 10*6/uL Low 4.40-5.90 [facility] Comment on above: Performed By: #### C OVAG #### [facility] [address] [place] [address] WBC (Bld) [#/Vol] 11.6 10*3/uL High 3.6-10.7 [facility] Comment on above: Performed By: #### C OVAG #### [facility] [address] [place] [address] Hemogram (CBC)on 10-21-2021 Hematocrit (Bld) [Volume fraction] 33.6 % Low 40.0 - 52.0 % [facility] Hemoglobin (Bld) [Mass/Vol] 10.9 g/dL Low 13.0 - 18.0 g/dL [facility] Interpretation and review of laboratory results Abnormal [...] vol] 7.7 fL 7.4 - 12.4 fL [facility] Comment on above: MPV is a calculated measurement using platelet volume ratio. Platelets (Bld) [#/Vol] 404 10*3/uL 140 - 440 10*3/uL [facility] RBC (Bld) [#/Vol] 3.93 10*6/uL Low 4.40 - 5.9 0 10*6/uL [facility] WBC (Bld) [#/Vol] 11.6 10*3/uL High 3.6 - 10.7 10*3/uL [facility] Test Performed by [facility], [address], [place], [place] [address] [facility] NM LUNG VENT/PERFUSION (VQ)o n 10-21-2021 Patient Name: ANDREW SIFUENTES Nuclear Medicine ACCESSION EXAM DATE/TIME PROCEDURE ORDERING PROVIDER [id number] 10/21/2021 07:55 EDT NM Pulmonary Perfusion [id number] MAY BOGGS w/ Vent Aerosol CPT code 32677 A9567 Reason For Exam (NM Pulmonary Perfusion [...] Medicine ACCESSION EXAM DATE/TIME PROCEDURE ORDERING PROVIDER [id number] 10/21/2021 07:55 EDT NM Pulmonary Perfusion [id number] MAY BOGGS w/ Vent Aerosol CPT code 85659 A9567 Reason For Exam (NM Pulmonary Perfusion [...] JOHN Transcribed Date and Time: 10/21/2021 8:49 [facility] Work Phone: NM LUNG VENT/PERFUSION (VQ)O rdered By: Henry Harvey on 10-21-2021 [facility] Work Phone: NM Pulmonary Perfusion w/ Ve nt Aerosol or Gason 10-21-2021 NM Pulmonary Perfusion w/ Vent Aerosol or Gas Patient Name: ANDREW SIFUENTES Nuclear Medicine ACCESSION EXAM DATE/TIME PROCEDURE ORDERING PROVIDER [id number] 10/21/2021 07:55 EDT NM Pulmonary Perfusion [id number] MAY BOGGS w/ Vent Aerosol CPT code 28382 A9567 Reason For Exam (NM Pulmonary Perfusion [...] Transcribed Date and Time: 10/21/2021 8:49 Normal [facility] No Panel Informationon 10-21 Radiology Study observation (narrative) [facility] Work Phone: Prothrombin Timeon 2 INR 1.1 Normal 0.9-1.1 [facility] Comment on above: Result Comment: Harry mmended [...] Infarction Performed By: #### C OVAG #### [facility] [address] [place] [address] PT Coag (PPP) [Time] 11.5 s Normal 9.0-12.0 [facility] Comment on above: Result Comment: . Performed By: #### C OVAG #### [facility] [address] [place] [address] Protime-INRon 10-21-2021 INR Coag (Bld) [Relative time] 1.1 {INR} [facility] Comment on above: Recommended Anticoag ulant [...] [Time] 11.5 s 9.0 - 12.0 s [facility] Comment on above: . Test Performed by [facility], [address] LAB [facility] Retic Count(%)on 10-21-2021 Retic Count(%) 1.6 Normal [facility] Comment on above: Result Comment: Newb orn < 5% Adults 0.5 - 1.5% Performed By: #### P T #### [facility] [address] [place] [address] Reticulocyteson 10-21-[address] Pct 1.6 [facility] Comment on above: < 5% Adults 0.5 - 1.5% Test Performed by [facility], [address] LAB [facility] Sed Rateon 10-21-2021 Sed Rate 63 mm/h High 0-10 [facility] Comment on above: Performed By: #### P T #### [facility] [address] [place] [address] Sedimentation Rateon 022 Interpretation and review of laboratory results Abnormal [facility] Sed Rate 63 mm/h High 0 - 10 mm/h [facility] Test Performed by [facility], [address], [place], [place] [address] [facility] VL CARMELLA Upr/L Extremity Art 1 -2 Levelson 10-21-2021 VL CARMELLA Upr/L Extremity Art 1-2 Levels Patient Name: ANDREW SIFUENTES Ultrasound ACCESSION EXAM DATE/TIME PROCEDURE ORDERING PROVIDER [id number] 10/21/2021 16:12 EDT VL Upr/L Extremity Art [id number] -SHRUTHI MALIK 1-2 Levels CPT code 98469 Reason For Exam (VL Upr/L Extremity Art 1-2 Levels) both lower legs CARMELLA for both feet wounds. Report [facility] Ankle Brachial Index Report Patient DO GurpreetB: 1950 Study 10/21/2021 Name: Andrew Gonzalez (71yrs) Date: Age: 71 Account: [id number] Gender: M Loc: 444W BP: Ordering Physician: Shruthi Malik Anesthesiologist Assistant: Rody Cross RDMS, RVT Interpreting Physician: Carina Call Location: [facility] Indications: Foot wounds. Originally ordered as a full PVR. Ordering INSPECTOR PLUG SEAM had to modify the order to ABIs [...] supine position. Images were obtained using a [employer]s vascular ultrasound machine. Arterial pressure indices: [...] CARINA HENNESSY Cardiovascular ACCESSION EXAM DATE/TIME PROCEDURE [id number] 10/21/2021 16:12 EDT VL Upr/L Extremity Art 1-2 Levels CPT code 19085 Reason For Exam (VL Upr/L Extremity Art 1-2 Levels) both lower legs CARMELLA for both feet wounds. Report [facility] Ankle Brachial Index Report Patient DO GurpreetB: 1950 Study 10/21/2021 Name: Andrew Gonzalez (71yrs) Date: Age: 71 Account: [id number] Cardiovascular Report Gender: M Loc: 444W BP: Ordering Physician: Shruthi Malik Anesthesiologist Assistant: Rody Cross RDMS, RVT Interpreting Physician: Carina Call Location: [facility] Indications: Foot wounds. Originally ordered as a full PVR. Ordering INSPECTOR PLUG SEAM had to modify the order to ABIs [...] in th (more content not included)... Normal [facility] VL LOWER EXTREMITY BILATERAL VENOUS DUPLEXon 10-21-2021 [facility] Lower Extremity Venous Duplex Report Patient DO GurpreetB: 1950 Study 10/21/2021 Name: Andrew Gonzalez (71yrs) Date: Age: 71 Account: [id number] Gender: M Loc: 444 BP: Ordering Physician: May Cash Anesthesiologist Assistant: Rody Cross RDMS, RVT Interpreting Physician: Carina Call Location: [facility] Indications: Bilateral lower leg edema. CRITICAL RESULTS: A critical finding, was reported to ATTILA Nguyen by Rody Cross on 10/21/2021 , at [...] supine position. Images were obtained using a [employer]s vascular ultrasound machine. Venous flow and [...] +-------- --------+ + (more content not included)... [facility] Carina Call MD - 10/21/2021 [facility] Lower Extremity Venous Duplex Report Patient DO GurpreetB: 1950 Study 10/21/2021 Name: Andrew Gonzalez (71yrs) Date: Age: 71 Account: [id number] Gender: M Loc: 444 BP: Ordering Physician: May Cash Anesthesiologist Assistant: Rody Cross RDMS, RVT Interpreting Physician: Carina Call Location: [facility] Indications: Bilateral lower leg edema. CRITICAL RESULTS: A critical finding, was reported to ATTILA Nguyen by Rody Cross , on 10/21/2021 , [...] supine position. Images were obtained using a [employer]s vascular ultrasound machine. Venous flow and [...] + + +----- (more content not included)... [employer] Work Phone: VL LOWER EXTREMITY BILATERAL VENOUS DUPLEXOrdered By: Carina Call on 10-21-2021 [employer] Work Phone: VL Venous Duplex US Lower Ex t Bilateralon 10-21-2021 VL Venous Duplex US Lower Ext Bilateral Patient Name: ANDREW SIFUENTES Ultrasound ACCESSION EXAM DATE/TIME PROCEDURE ORDERING PROVIDER [id number] 10/21/2021 09:53 EDT VL Venous Duplex US [id number] -MAY CASH Lower Ext Bilateral CPT code 54777 Reason For Exam (VL Venous Duplex US Lower Ext Bilateral) bilateral sqwelling redness Report [facility] Lower Extremity Venous Duplex Report Patient DO GurpreetB: 1950 Study 10/21/2021 Name: Andrew Gonzalez (71yrs) Date: Age: 71 Account: [id number] Gender: M Loc: 444 BP: Ordering Physician: May Cash Anesthesiologist Assistant: Rody Cross RDMS, RVT Interpreting Physician: Carina Call Location: [facility] Indications: Bilateral lower leg edema. CRITICAL RESULTS: A critical finding, was reported to ATTILA Nguyen by Rody Cross , on 10/21/2021 , [...] supine position. Images were obtained using a [employer]s vascular ultrasound machine. Venous flow and [...] + + (more content not included)... Normal [facility] XR CALCANEUS LEFT (MIN 2 VIE WS)on 10-21-2021 Patient Name: ANDREW SIFUENTES Diagnostic Radiology ACCESSION EXAM DATE/TIME PROCEDURE ORDERING PROVIDER [id number] 10/21/2021 15:30 EDT CR Calcaneus 2+ Views [id number] -SHRUTHI MALIK Left CPT code 57498 Reason For Exam (CR Calcaneus 2+ Views [...] Radiology ACCESSION EXAM DATE/TIME PROCEDURE ORDERING PROVIDER [id number] 10/21/2021 15:30 EDT CR Calcaneus 2+ Views [id number] -SHRUTHI MALIK Left CPT code 93134 Reason For Exam (CR Calcaneus 2+ Views [...] J Transcribed Date and Time: 10/21/2021 4:33 [facility] Work Phone: XR CALCANEUS LEFT (MIN 2 VIE WS)Ordered By: Alan Wong on 10-21-2021 [facility] Work Phone: XR Chest 1 VWon 10-21-2021 Patient Name: ANDREW SIFUENTES Diagnostic Radiology ACCESSION EXAM DATE/TIME PROCEDURE ORDERING PROVIDER [id number] 10/21/2021 08:16 EDT CR Chest 1 View Frontal [id number] MAY BOGGS CPT code 78599 Reason For Exam (CR Chest 1 View [...] OSAMA Transcribed Date and Time: 10/21/2021 8:33 [facility] Venus Loyd MD - 10/21/2021 Patient Name: ANDREW SIFUENTES Diagnostic Radiology ACCESSION EXAM DATE/TIME PROCEDURE ORDERING PROVIDER [id number] 10/21/2021 08:16 EDT CR Chest 1 View Frontal [id number] FOSTER CPT code 70916 Reason For Exam (CR Chest 1 View [...] RAMOS Transcribed Date and Time: 10/21/2021 8:33 [facility] Work Phone: XR Chest 1 VWOrdered By: Natalie Loyd on 10-21-2021 [facility] Work Phone: Basophil percentageon 2021 Chloride [Moles/Vol] 108 mmol/L 98-107 [facility] Work Phone: Glucose [Mass/Vol] 93 mg/dL 74-106 [facility] Work Phone: [phone] Potassium [Moles/Vol] 3.9 mmol/L 3.5-5.1 [facility] Work Phone: Sodium [Moles/Vol] 140 mmol/L 136-145 [facility] Work Phone: WBC (Bld) [#/Vol] 8.7 10*3/uL 4.4-11.0 [facility] Work Phone: Blood erythrocytes count (nu mber/volume)on 10-20-2021 RBC (Bld) [#/Vol] 3.63 10*6/uL 4.6-6.2 [facility] Work Phone: Blood hemoglobin measurement (mass/volume)on 10-20-2021 Hemoglobin (Bld) [Mass/Vol] 10.1 g/dL 13.0-16.5 [facility] Work Phone: Blood platelet mean volumeon 10-20-2021 Platelet mean volume (Bld) [Entitic vol] 9.8 fL 6.2-12.0 [facility] Work Phone: Determination of erythrocyte mean corpuscular volume (MCV)on 10-20-2021 MCV (RBC) [Entitic vol] 90.1 fL 80-94 [facility] Work Phone: Hematocrit Auto (Bld) [Volum e fraction]on 10-20-2021 Hematocrit (Bld) [Volume fraction] 32.7 % 40-54 [facility] Work Phone: Laboratory - Chemistry and C hemistry - challengeon 10-20-2021 CO2 [Moles/Vol] 25.0 mmol/L 21.0-32.0 [facility] Work Phone: Urea nitrogen/Creatinine [Mass ratio] 17.4 mg/mg 10-20 [facility] Work Phone: Laboratory - Hematology and Cell countson 10-20-2021 Erythrocyte distribution width (RBC) [Entitic vol] 52.1 fL 35.1-43.9 [facility] Work Phone: Erythrocyte distribution width (RBC) [Ratio] 15.6 % 11.6-14.6 [facility] Work Phone: MCH (RBC) [Entitic mass] 27.8 pg 27.0-32.0 [facility] Work Phone: MCHC Auto (RBC) [Mass/Vol]on 10-20-2021 MCHC (RBC) [Mass/Vol] 30.9 g/dL 32-36 [facility] Work Phone: No Panel Informationon 10-20 Estimated GFR (MDRD) Amer 133 mL/min >60 [facility] Work Phone: Comment on above: GFR Calc Estimated GFR (MDRD) Non-Af Amer 110 mL/min >60 [facility] Work Phone: Comment on above: Non- GFR Calc Platelets bldon 10-20-2021 Platelets (Bld) [#/Vol] 404 10*3/uL 150-450 [facility] Work Phone: Serum or plasma calcium oral urement (mass/volume)on 10-20-2021 Calcium [Mass/Vol] 9.1 mg/dL 8.5-10.1 [facility] Work Phone: Serum or plasma creatinine m easurement (mass/volume)on 10-20-2021 Creatinine [Mass/Vol] 0.75 mg/dL 0.70-1.30 [facility] Work Phone: Comment on above: The validity of the calculated GFR & GFRAA in patients over 70 years has not been determined. Clinical correlation is essential. Serum or plasma urea nitroge n measurement (mass/volume)on 10-20-2021 Urea nitrogen [Mass/Vol] 13 mg/dL 7-18 [facility] Work Phone: Thin prep Papanicolaou smear with manual screeningon 10-20-2021 Thin prep Papanicolaou smear with manual screening 7 5-15 [facility] Work Phone: CNPNon 10-17-2021 CNPN Normal [facility] Absolute lymphocyte counton 09-19-2021 Lymphocytes Auto (Unsp spec) [#/Vol] 1.74 10*3/uL 0.83-4.51 [facility] Work Phone: Basophil percentageon 2021 Basophils/100 WBC (Bld) 0.6 % 0-1 [facility] Work Phone: Bilirubin [Mass/Vol] 0.30 mg/dL 0.20-1.00 [facility] Work Phone: Comment on above: For patients on eltr ombopag therapy, use of Dimension [place] TBIL is not recommended. Chloride [Moles/Vol] 105 mmol/L 98-107 [facility] Work Phone: Eosinophils/100 WBC (Bld) 3.5 % 0-5 [facility] Work Phone: Glucose [Mass/Vol] 91 mg/dL 74-106 [facility] Work Phone: Neutrophils (Bld) [#/Vol] 4.2 10*3/uL 2.0-7.7 [facility] Work Phone: Neutrophils/100 WBC (Bld) 62.6 % 47-70 [facility] Work Phone: Potassium [Moles/Vol] 3.8 mmol/L 3.5-5.1 [facility] Work Phone: Protein [Mass/Vol] 6.3 g/dL 6.4-8.2 [facility] Work Phone: Sodium [Moles/Vol] 139 mmol/L 136-145 [facility] Work Phone: WBC (Bld) [#/Vol] 6.6 10*3/uL 4.4-11.0 [facility] Work Phone: Blood erythrocytes count (nu mber/volume)on 09-19-2021 RBC (Bld) [#/Vol] 3.47 10*6/uL 4.6-6.2 [facility] Work Phone: [phone] Blood hemoglobin measurement (mass/volume)on 09-19-2021 Hemoglobin (Bld) [Mass/Vol] 10.2 g/dL 13.0-16.5 [facility] Work Phone: Blood lymphocytes/100 leukoc yteson 09-19-2021 Lymphocytes/100 WBC (Bld) 26.2 % 19-41 [facility] Work Phone: Blood monocytes/100 leukocyt eson 09-19-2021 Monocytes/100 WBC (Bld) 6.5 % 0-10 [facility] Work Phone: Blood platelet mean volumeon 09-19-2021 Platelet mean volume (Bld) [Entitic vol] 9.6 fL 6.2-12.0 [facility] Work Phone: Determination of erythrocyte mean corpuscular volume (MCV)on 09-19-2021 MCV (RBC) [Entitic vol] 94.8 fL 80-94 [facility] Work Phone: [phone] Hematocrit Auto (Bld) [Volum e fraction]on 09-19-2021 Hematocrit (Bld) [Volume fraction] 32.9 % 40-54 [facility] Work Phone: Laboratory - Chemistry and C hemistry - challengeon 09-19-2021 ALP [Catalytic activity/Vol] 109 U/L 45-117 [facility] Work Phone: ALT [Catalytic activity/Vol] 23 U/L 16-61 [facility] Work Phone: CO2 [Moles/Vol] 26.0 mmol/L 21.0-32.0 [facility] Work Phone: Globulin (S) [Mass/Vol] 3.5 g/dL 2.2-4.2 [facility] Work Phone: Urea nitrogen/Creatinine [Mass ratio] 15.3 mg/mg 10-20 [facility] Work Phone: Laboratory - Hematology and Cell countson 09-19-2021 Erythrocyte distribution width (RBC) [Entitic vol] 59.4 fL 35.1-43.9 [facility] Work Phone: Erythrocyte distribution width (RBC) [Ratio] 17.1 % 11.6-14.6 [facility] Work Phone: Immature granulocytes/100 WBC (Bld) 0.600 % 0.0-0.9 [facility] Work Phone: Comment on above: IG% - Immature Granu locytes (promyelocytes, myelocytes and metamyelocytes) > 1% indicates that a LEFT SHIFT is Present. MCH (RBC) [Entitic mass] 29.4 pg 27.0-32.0 [facility] Work Phone: Nucleated RBC/100 WBC (Bld) [Ratio] 0 % 0-5 [facility] Work Phone: MCHC Auto (RBC) [Mass/Vol]on 09-19-2021 MCHC (RBC) [Mass/Vol] 31.0 g/dL 32-36 [facility] Work Phone: No Panel Informationon 09-19 Estimated GFR (MDRD) Amer 175 mL/min >60 [facility] Work Phone: Comment on above: GFR Calc Estimated GFR (MDRD) Non-Af Amer 145 mL/min >60 [facility] Work Phone: Comment on above: Non- GFR Calc Platelets bldon 09-19-2021 Platelets (Bld) [#/Vol] 342 10*3/uL 150-450 [facility] Work Phone: Serum or plasma albumin oral urement (mass/volume)on 09-19-2021 Albumin [Mass/Vol] 2.8 g/dL 3.2-5.0 [facility] Work Phone: Serum or plasma albumin/glob ulin mass ratioon 09-19-2021 Albumin/Globulin [Mass ratio] 0.8 {ratio} 0.9-2.4 [facility] Work Phone: Serum or plasma calcium oral urement (mass/volume)on 09-19-2021 Calcium [Mass/Vol] 9.0 mg/dL 8.5-10.1 [facility] Work Phone: Serum or plasma creatinine m easurement (mass/volume)on 09-19-2021 Creatinine [Mass/Vol] 0.59 mg/dL 0.70-1.30 [facility] Work Phone: Comment on above: The validity of the calculated GFR & GFRAA in patients over 70 years has not been determined. Clinical correlation is essential. Serum or plasma urea nitroge n measurement (mass/volume)on 09-19-2021 Urea nitrogen [Mass/Vol] 9 mg/dL 7-18 [facility] Work Phone: Thin prep Papanicolaou smear with manual screeningon 09-19-2021 Thin prep Papanicolaou smear with manual screening 12 U/L 15-37 [facility] Work Phone: Thin prep Papanicolaou smear with manual screening 8 5-15 [facility] Work Phone: OPERATIVE NOon 08-22-2021 OPERATIVE NO Normal [facility] Basic metabolic 2000 panelon 08-19-2021 Anion gap [Moles/Vol] 10 mmol/L Normal 9-18 [facility] Comment on above: Order Comment: Speci men Type: BLOOD SPECIMENOrdering Facility: [facility] Address: [address] [address] Performed By: #### 2 4321-2 ####[facility] LABORATORYCLIA [id number] [address] [place] Calcium [Mass/Vol] 8.6 mg/dL Normal 8.5-10.2 [facility] Comment on above: Order Comment: Speci men Type: BLOOD SPECIMENOrdering Facility: [facility] Address: [address] [place] [address] Performed By: #### 2 4321-2 ####[facility] LABORATORYCLIA [id number] [place] [address] [place] Chloride [Moles/Vol] 99 mmol/L Normal 97-105 [facility] Comment on above: Order Comment: Speci men Type: BLOOD SPECIMENOrdering Facility: [facility] Address: [address] [place] [address] Performed By: #### 2 4321-2 ####[facility] LABORATORYCLIA [id number] [place] [address] [place] CO2 [Moles/Vol] 29 mmol/L Normal 22-30 [facility] Comment on above: Order Comment: Speci men Type: BLOOD SPECIMENOrdering Facility: [facility] Address: [address] [place] [address] Performed By: #### 2 4321-2 ####[facility] LABORATORYCLIA [id number] [place] [address] [place] Creatinine [Mass/Vol] 0.58 mg/dL Low 0.73-1.22 [facility] Comment on above: Order Comment: Speci men Type: BLOOD SPECIMENOrdering Facility: [facility] Address: [address] [place] [address] Performed By: #### 2 4321-2 ####[facility] LABORATORYCLIA [id number] [place] [address] [place] ESTIMATED GLOMERULAR FILTRATION RATE 106 mL/min/1.73m??? Normal >=60 [facility] Comment on above: Order Comment: Shira feldman Type: BLOOD SPECIMENOrdering Facility: [facility] Address: [address] [id number] Result Comment: Luzmaria mated Glomerular Filtration Rate [...] actual GFR. Performed By: #### 2 4321-2 ####[facility] LABORATORYCLIA [id number] [place] [address] [place] Glucose [Mass/Vol] 101 mg/dL High 74-99 [facility] Comment on above: Order Comment: Shira feldman Type: BLOOD SPECIMENOrdering Facility: [facility] Address: [address] [place] [address] Result Comment: The [employer] (ADA) provides guidance for cutoff [...] Standards of Medical Care in Diabetes 2016, [employer]. Diabetes Care. 2016.39(Suppl 1). Performed By: #### 2 4321-2 ####[facility] LABORATORYCLIA [id number] [place] [address] [place] Potassium [Moles/Vol] 3.5 mmol/L Low 3.7-5.1 [facility] Comment on above: Order Comment: Shira feldman Type: BLOOD SPECIMENOrdering Facility: [facility] Address: [address] [address] Performed By: #### 2 4321-2 ####[facility] LABORATORYCLIA [id number] [address] [place] Sodium [Moles/Vol] 138 mmol/L Normal 136-144 [facility] Comment on above: Order Comment: Speci men Type: BLOOD SPECIMENOrdering Facility: [facility] Address: [address] [place] [address] Performed By: #### 2 4321-2 ####[facility] LABORATORYCLIA [id number] [place] [address] [place] Urea nitrogen [Mass/Vol] 11 mg/dL Normal 9-24 [facility] Comment on above: Order Comment: Speci men Type: BLOOD SPECIMENOrdering Facility: [facility] Address: [address] [place] [place] [address] Performed By: #### 2 4321-2 ####[facility] LABORATORYCLIA [id number] [address] [place] CASE MANAGEMon 08-19-2021 CASE MANAGEM Normal [facility] CBC W Auto Differential pane l (Bld)on 08-19-2021 Basophils (Bld) [#/Vol] 0.03 10*3/uL Normal <0.11 [facility] Comment on above: Order Comment: Speci men Type: BLOOD SPECIMENOrdering Facility: [facility] Address: [address] [place] [place] [address] Performed By: #### 5 7021-8 ####[facility] LABORATORYCLIA [id number] [address] [place] Basophils/100 WBC (Bld) 0.4 % Normal [facility] Comment on above: Order Comment: Speci men Type: BLOOD SPECIMENOrdering Facility: [facility] Address: [address] [place] [address] Performed By: #### 5 7021-8 ####[facility] LABORATORYCLIA [id number] [address] STATES [facility] Differential cell count method Nom (Bld) Auto Normal [facility] Comment on above: Order Comment: Speci men Type: BLOOD SPECIMENOrdering Facility: [facility] Address: [address] [place] [address] Performed By: #### 5 7021-8 ####[facility] LABORATORYCLIA [id number] [address] OF [facility] Eosinophils (Bld) [#/Vol] 0.24 10*3/uL Normal <0.46 [facility] Comment on above: Order Comment: Speci men Type: BLOOD SPECIMENOrdering Facility: [facility] Address: [address] [place] [address] Performed By: #### 5 7021-8 ####[facility] LABORATORYCLIA [id number] [address] Eosinophils/100 WBC (Bld) 3.1 % Normal [facility] Comment on above: Order Comment: Speci men Type: BLOOD SPECIMENOrdering Facility: [facility] Address: [address] [place] [address] Performed By: #### 5 7021-8 ####[facility] LABORATORYCLIA [id number] [address] Erythrocyte distribution width (RBC) [Ratio] 17.5 % High 11.5-15.0 [facility] Comment on above: Order Comment: Speci men Type: BLOOD SPECIMENOrdering Facility: [facility] Address: [address] [place] [address] Performed By: #### 5 7021-8 ####[facility] LABORATORYCLIA [id number] [address] Hematocrit (Bld) [Volume fraction] 30.2 % Low 39.0-51.0 [facility] Comment on above: Order Comment: Speci men Type: BLOOD SPECIMENOrdering Facility: [facility] Address: [address] [place] [address] Performed By: #### 5 7021-8 ####[facility] LABORATORYCLIA [id number] [address] [place] Hemoglobin (Bld) [Mass/Vol] 9.6 g/dL Low 13.0-17.0 [facility] Comment on above: Order Comment: Speci men Type: BLOOD SPECIMENOrdering Facility: [facility] Address: [address] [place] [address] Performed By: #### 5 7021-8 ####[facility] LABORATORYCLIA [id number] [address] IMMATURE GRAN % 0.4 % Normal [facility] Comment on above: Order Comment: Speci men Type: BLOOD SPECIMENOrdering Facility: [facility] Address: [address] [place] [address] Performed By: #### 5 7021-8 ####[facility] LABORATORYCLIA [id number] [address] IMMATURE GRAN ABS 0.03 k/uL Normal <0.10 [facility] Comment on above: Order Comment: Speci men Type: BLOOD SPECIMENOrdering Facility: [facility] Address: [address] [place] [address] Performed By: #### 5 7021-8 ####[facility] LABORATORYCLIA [id number] [address] [place] Lymphocytes (Bld) [#/Vol] 1.71 10*3/uL Normal 1.00-4.00 [facility] Comment on above: Order Comment: Speci men Type: BLOOD SPECIMENOrdering Facility: [facility] Address: [address] [place] [address] Performed By: #### 5 7021-8 ####[facility] LABORATORYCLIA [id number] [address] Lymphocytes/100 WBC (Bld) 22.2 % Normal [facility] Comment on above: Order Comment: Speci men Type: BLOOD SPECIMENOrdering Facility: [facility] Address: [address] [place] [address] Performed By: #### 5 7021-8 ####[facility] LABORATORYCLIA [id number] [address] MCH (RBC) [Entitic mass] 29.4 pg Normal 26.0-34.0 [facility] Comment on above: Order Comment: Speci men Type: BLOOD SPECIMENOrdering Facility: [facility] Address: [address] [place] [address] Performed By: #### 5 7021-8 ####[facility] LABORATORYCLIA [id number] [address] MCHC (RBC) [Mass/Vol] 31.8 g/dL Normal 30.5-36.0 [facility] Comment on above: Order Comment: Speci men Type: BLOOD SPECIMENOrdering Facility: [facility] Address: [address] [place] [address] Performed By: #### 5 7021-8 ####[facility] LABORATORYCLIA [id number] [address] MCV (RBC) [Entitic vol] 92.6 fL Normal 80.0-100.0 [facility] Comment on above: Order Comment: Speci men Type: BLOOD SPECIMENOrdering Facility: [facility] Address: [address] [place] [address] Performed By: #### 5 7021-8 ####[facility] LABORATORYCLIA [id number] [address] Monocytes (Bld) [#/Vol] 0.50 10*3/uL Normal <0.87 [facility] Comment on above: Order Comment: Speci men Type: BLOOD SPECIMENOrdering Facility: [facility] Address: [address] [place] [address] Performed By: #### 5 7021-8 ####[facility] LABORATORYCLIA [id number] [address] Monocytes/100 WBC (Bld) 6.5 % Normal [facility] Comment on above: Order Comment: Speci men Type: BLOOD SPECIMENOrdering Facility: [facility] Address: [address] [place] [address] Performed By: #### 5 7021-8 ####[facility] LABORATORYCLIA [id number] [place] [address] [place] Neutrophils (Bld) [#/Vol] 5.20 10*3/uL Normal 1.45-7.50 [facility] Comment on above: Order Comment: Speci men Type: BLOOD SPECIMENOrdering Facility: [facility] Address: [address] [place] [address] Performed By: #### 5 7021-8 ####[facility] LABORATORYCLIA [id number] [address] [place] Neutrophils/100 WBC (Bld) 67.4 % Normal [facility] Comment on above: Order Comment: Speci men Type: BLOOD SPECIMENOrdering Facility: [facility] Address: [address] [place] [address] Performed By: #### 5 7021-8 ####[facility] LABORATORYCLIA [id number] [address] [place] Nucleated RBC (Bld) [#/Vol] 10*3/uL Normal <0.01 [facility] Comment on above: Order Comment: Speci men Type: BLOOD SPECIMENOrdering Facility: [facility] Address: [address] [place] [address] Performed By: #### 5 7021-8 ####[facility] LABORATORYCLIA [id number] [address] [place] Nucleated RBC/100 WBC (Bld) [Ratio] 0.0 /100 WBC Normal [facility] Comment on above: Order Comment: Speci men Type: BLOOD SPECIMENOrdering Facility: [facility] Address: [address] [place] [address] Performed By: #### 5 7021-8 ####[facility] LABORATORYCLIA [id number] [address] [place] Platelet mean volume (Bld) [Entitic vol] 8.9 fL Low 9.0-12.7 [facility] Comment on above: Order Comment: Speci men Type: BLOOD SPECIMENOrdering Facility: [facility] Address: [address] [place] [address] Performed By: #### 5 7021-8 ####[facility] LABORATORYCLIA [id number] [place] [address] [place] Platelets (Bld) [#/Vol] 408 10*3/uL High 150-400 [facility] Comment on above: Order Comment: Speci men Type: BLOOD SPECIMENOrdering Facility: [facility] Address: [address] [place] [address] Performed By: #### 5 7021-8 ####[facility] LABORATORYCLIA [id number] [place] [address] [place] RBC (Bld) [#/Vol] 3.26 10*6/uL Low 4.20-6.00 [facility] Comment on above: Order Comment: Speci men Type: BLOOD SPECIMENOrdering Facility: [facility] Address: [address] [place] [address] Performed By: #### 5 7021-8 ####[facility] LABORATORYCLIA [id number] [address] [place] WBC (Bld) [#/Vol] 7.71 10*3/uL Normal 3.70-11.00 [facility] Comment on above: Order Comment: Speci men Type: BLOOD SPECIMENOrdering Facility: [facility] Address: [address] [place] [address] Performed By: #### 5 7021-8 ####[facility] LABORATORYCLIA [id number] [address] [place] CNDSon 08-19-2021 CNDS Normal [facility] CONSULT PROGon 08-19-2021 CONSULT PROG Normal [facility] THERAPY NTon 08-19-2021 THERAPY NT Normal [facility] Basic metabolic 2000 panelon 08-18-2021 Anion gap [Moles/Vol] 11 mmol/L Normal 9-18 [facility] Comment on above: Order Comment: Speci men Type: BLOOD SPECIMENOrdering Facility: [facility] Address: [address] [place] [address] Performed By: #### 2 4321-2 ####[facility] LABORATORYCLIA [id number] [place] [address] [place] Calcium [Mass/Vol] 8.6 mg/dL Normal 8.5-10.2 [facility] Comment on above: Order Comment: Speci men Type: BLOOD SPECIMENOrdering Facility: [facility] Address: [address] [place] [address] Performed By: #### 2 4321-2 ####[facility] LABORATORYCLIA [id number] [place] [address] [place] Chloride [Moles/Vol] 98 mmol/L Normal 97-105 [facility] Comment on above: Order Comment: Speci men Type: BLOOD SPECIMENOrdering Facility: [facility] Address: [address] [place] [address] Performed By: #### 2 4321-2 ####[facility] LABORATORYCLIA [id number] [place] [address] [place] CO2 [Moles/Vol] 28 mmol/L Normal 22-30 [facility] Comment on above: Order Comment: Speci men Type: BLOOD SPECIMENOrdering Facility: [facility] Address: [address] [place] [address] Performed By: #### 2 4321-2 ####[facility] LABORATORYCLIA [id number] [place] [address] [place] Creatinine [Mass/Vol] 0.56 mg/dL Low 0.73-1.22 [facility] Comment on above: Order Comment: Speci men Type: BLOOD SPECIMENOrdering Facility: [facility] Address: [address] [place] [address] Performed By: #### 2 4321-2 ####[facility] CENTERCLIA [id number] [address] [place] ESTIMATED GLOMERULAR FILTRATION RATE 107 mL/min/1.73m??? Normal >=60 [facility] Comment on above: Order Comment: Shira francia Type: BLOOD SPECIMENOrdering Facility: [facility] Address: [address] [place] [address] Result Comment: Luzmaria mated Glomerular Filtration Rate [...] Performed By: #### 2 4321-2 ####[facility]PITALIA [id number] [place] [address] [place] Glucose [Mass/Vol] 113 mg/dL High 74-99 [facility] Comment on above: Order Comment: Shira feldman Type: BLOOD SPECIMENOrdering Facility: [facility] Address: [address] [place] [address] Result Comment: The [employer] (ADA) provides guidance for cutoff [...] Standards of Medical Care in Diabetes 2016, [employer]. Diabetes Care. 2016.39(Suppl 1). Performed By: #### 2 4321-2 ####[facility] LABORATORYCLIA [id number] [place] [address] [place] Potassium [Moles/Vol] 3.5 mmol/L Low 3.7-5.1 [facility] Comment on above: Order Comment: Speci men Type: BLOOD SPECIMENOrdering Facility: [facility] Address: [address] [place] [address] Performed By: #### 2 4321-2 ####[facility] LABORATORYCLIA [id number] [address] STATES [facility] Sodium [Moles/Vol] 137 mmol/L Normal 136-144 [facility] Comment on above: Order Comment: Speci men Type: BLOOD SPECIMENOrdering Facility: [facility] Address: [address] [place] [address] Performed By: #### 2 4321-2 ####[facility] LABORATORYCLIA [id number] [address] STATES [facility] Urea nitrogen [Mass/Vol] 10 mg/dL Normal 9-24 [facility] Comment on above: Order Comment: Speci men Type: BLOOD SPECIMENOrdering Facility: [facility] Address: [address] [place] [address] Performed By: #### 2 4321-2 ####[facility] LABORATORYCLIA [id number] [address] [place] CBC W Auto Differential pane l (Bld)on 08-18-2021 Basophils (Bld) [#/Vol] 10*3/uL Normal <0.11 [facility] Comment on above: Order Comment: Speci men Type: BLOOD SPECIMENOrdering Facility: [facility] Address: [address] [place] [address] Performed By: #### 5 7021-8 ####[facility] LABORATORYCLIA [id number] [address] Basophils/100 WBC (Bld) 0.3 % Normal [facility] Comment on above: Order Comment: Speci men Type: BLOOD SPECIMENOrdering Facility: [facility] Address: [address] [place] [address] Performed By: #### 5 7021-8 ####[facility] LABORATORYCLIA [id number] [address] [place] Differential cell count method Nom (Bld) Auto Normal [facility] Comment on above: Order Comment: Speci men Type: BLOOD SPECIMENOrdering Facility: [facility] Address: [address] [place] [place] [address] Performed By: #### 5 7021-8 ####[facility] LABORATORYCLIA [id number] [address] [place] Eosinophils (Bld) [#/Vol] 0.37 10*3/uL Normal <0.46 [facility] Comment on above: Order Comment: Speci men Type: BLOOD SPECIMENOrdering Facility: [facility] Address: [address] [place] [address] Performed By: #### 5 7021-8 ####[facility] LABORATORYCLIA [id number] [address] Eosinophils/100 WBC (Bld) 4.8 % Normal [facility] Comment on above: Order Comment: Speci men Type: BLOOD SPECIMENOrdering Facility: [facility] Address: [address] [place] [address] Performed By: #### 5 7021-8 ####[facility] LABORATORYCLIA [id number] [address] [place] Erythrocyte distribution width (RBC) [Ratio] 17.5 % High 11.5-15.0 [facility] Comment on above: Order Comment: Speci men Type: BLOOD SPECIMENOrdering Facility: [facility] Address: [address] [place] [address] Performed By: #### 5 7021-8 ####[facility] LABORATORYCLIA [id number] [address] Hematocrit (Bld) [Volume fraction] 30.2 % Low 39.0-51.0 [facility] Comment on above: Order Comment: Speci men Type: BLOOD SPECIMENOrdering Facility: [facility] Address: [address] [place] [address] Performed By: #### 5 7021-8 ####[facility] LABORATORYCLIA [id number] [address] [place] Hemoglobin (Bld) [Mass/Vol] 9.5 g/dL Low 13.0-17.0 [facility] Comment on above: Order Comment: Speci men Type: BLOOD SPECIMENOrdering Facility: [facility] Address: [address] [place] [address] Performed By: #### 5 7021-8 ####[facility] LABORATORYCLIA [id number] [address] IMMATURE GRAN % 0.4 % Normal [facility] Comment on above: Order Comment: Speci men Type: BLOOD SPECIMENOrdering Facility: [facility] Address: [address] [place] [address] Performed By: #### 5 7021-8 ####[facility] LABORATORYCLIA [id number] [address] IMMATURE GRAN ABS 0.03 k/uL Normal <0.10 [facility] Comment on above: Order Comment: Speci men Type: BLOOD SPECIMENOrdering Facility: [facility] Address: [address] [place] [address] Performed By: #### 5 7021-8 ####[facility] LABORATORYCLIA [id number] [address] [place] Lymphocytes (Bld) [#/Vol] 1.85 10*3/uL Normal 1.00-4.00 [facility] Comment on above: Order Comment: Speci men Type: BLOOD SPECIMENOrdering Facility: [facility] Address: [address] [place] [address] Performed By: #### 5 7021-8 ####[facility] LABORATORYCLIA [id number] [address] [place] Lymphocytes/100 WBC (Bld) 23.8 % Normal [facility] Comment on above: Order Comment: Speci men Type: BLOOD SPECIMENOrdering Facility: [facility] Address: [address] [place] [address] Performed By: #### 5 7021-8 ####[facility] LABORATORYCLIA [id number] [address] MCH (RBC) [Entitic mass] 29.5 pg Normal 26.0-34.0 [facility] Comment on above: Order Comment: Speci men Type: BLOOD SPECIMENOrdering Facility: [facility] Address: [address] [place] [address] Performed By: #### 5 7021-8 ####[facility] LABORATORYCLIA [id number] [address] MCHC (RBC) [Mass/Vol] 31.5 g/dL Normal 30.5-36.0 [facility] Comment on above: Order Comment: Speci men Type: BLOOD SPECIMENOrdering Facility: [facility] Address: [address] [place] [address] Performed By: #### 5 7021-8 ####[facility] LABORATORYCLIA [id number] [address] MCV (RBC) [Entitic vol] 93.8 fL Normal 80.0-100.0 [facility] Comment on above: Order Comment: Speci men Type: BLOOD SPECIMENOrdering Facility: [facility] Address: [address] [place] [address] Performed By: #### 5 7021-8 ####[facility] LABORATORYCLIA [id number] [address] Monocytes (Bld) [#/Vol] 0.49 10*3/uL Normal <0.87 [facility] Comment on above: Order Comment: Speci men Type: BLOOD SPECIMENOrdering Facility: [facility] Address: [address] [place] [address] Performed By: #### 5 7021-8 ####[facility] LABORATORYCLIA [id number] [address] [place] Monocytes/100 WBC (Bld) 6.3 % Normal [facility] Comment on above: Order Comment: Speci men Type: BLOOD SPECIMENOrdering Facility: [facility] Address: [address] [place] [address] Performed By: #### 5 7021-8 ####[facility] LABORATORYCLIA [id number] [place] [address] [place] Neutrophils (Bld) [#/Vol] 5.00 10*3/uL Normal 1.45-7.50 [facility] Comment on above: Order Comment: Speci men Type: BLOOD SPECIMENOrdering Facility: [facility] Address: [address] [place] [address] Performed By: #### 5 7021-8 ####[facility] LABORATORYCLIA [id number] [address] [place] Neutrophils/100 WBC (Bld) 64.4 % Normal [facility] Comment on above: Order Comment: Speci men Type: BLOOD SPECIMENOrdering Facility: [facility] Address: [address] [place] [address] Performed By: #### 5 7021-8 ####[facility] LABORATORYCLIA [id number] [place] [address] [place] Nucleated RBC (Bld) [#/Vol] 10*3/uL Normal <0.01 [facility] Comment on above: Order Comment: Speci men Type: BLOOD SPECIMENOrdering Facility: [facility] Address: [address] [place] [address] Performed By: #### 5 7021-8 ####[facility] LABORATORYCLIA [id number] [address] [place] Nucleated RBC/100 WBC (Bld) [Ratio] 0.0 /100 WBC Normal [facility] Comment on above: Order Comment: Speci men Type: BLOOD SPECIMENOrdering Facility: [facility] Address: [address] [place] [address] Performed By: #### 5 7021-8 ####[facility] LABORATORYCLIA [id number] [address] [place] Platelet mean volume (Bld) [Entitic vol] 9.1 fL Normal 9.0-12.7 [facility] Comment on above: Order Comment: Speci men Type: BLOOD SPECIMENOrdering Facility: [facility] Address: [address] [place] [address] Performed By: #### 5 7021-8 ####[facility] LABORATORYCLIA [id number] [place] [address] [place] Platelets (Bld) [#/Vol] 391 10*3/uL Normal 150-400 [facility] Comment on above: Order Comment: Speci men Type: BLOOD SPECIMENOrdering Facility: [facility] Address: [address] [place] [address] Performed By: #### 5 7021-8 ####[facility] LABORATORYCLIA [id number] [address] [place] RBC (Bld) [#/Vol] 3.22 10*6/uL Low 4.20-6.00 [facility] Comment on above: Order Comment: Speci men Type: BLOOD SPECIMENOrdering Facility: [facility] Address: [address] [place] [address] Performed By: #### 5 7021-8 ####[facility] LABORATORYCLIA [id number] [place] [address] [place] WBC (Bld) [#/Vol] 7.76 10*3/uL Normal 3.70-11.00 [facility] Comment on above: Order Comment: Speci men Type: BLOOD SPECIMENOrdering Facility: [facility] Address: [address] [place] [address] Performed By: #### 5 7021-8 ####[facility] LABORATORYCLIA [id number] [address] [place] CONSULT PROGon 08-18-2021 CONSULT PROG Normal [facility] CASE MANAGEMon 08-17-2021 CASE MANAGEM Normal [facility] CBC W Auto Differential pane l (Bld)on 08-17-2021 Basophils (Bld) [#/Vol] 0.04 10*3/uL Normal <0.11 [facility] Comment on above: Order Comment: Speci men Type: BLOOD SPECIMENOrdering Facility: [facility] Address: [address] [place] [address] Performed By: #### 5 7021-8 ####[facility]ORATORYCLIA [id number] [place] [address] [place] Basophils/100 WBC (Bld) 0.5 % Normal [facility] Comment on above: Order Comment: Speci men Type: BLOOD SPECIMENOrdering Facility: [facility] Address: [address] [place] [address] Performed By: #### 5 7021-8 ####[facility] LABORATORYCLIA [id number] [address] [place] Differential cell count method Nom (Bld) Auto Normal [facility] Comment on above: Order Comment: Speci men Type: BLOOD SPECIMENOrdering Facility: [facility] Address: [address] [place] [address] Performed By: #### 5 7021-8 ####[facility] LABORATORYCLIA [id number] [place] [address] [place] Eosinophils (Bld) [#/Vol] 0.31 10*3/uL Normal <0.46 [facility] Comment on above: Order Comment: Speci men Type: BLOOD SPECIMENOrdering Facility: [facility] Address: [address] [place], [place] [address] Performed By: #### 5 7021-8 ####[facility]ATORYCLIA [id number] [address] [place] Eosinophils/100 WBC (Bld) 3.7 % Normal [facility] Comment on above: Order Comment: Speci men Type: BLOOD SPECIMENOrdering Facility: [facility] Address: [address] [address] Performed By: #### 5 7021-8 ####[facility]ATORYCLIA [id number] [address] Erythrocyte distribution width (RBC) [Ratio] 17.4 % High 11.5-15.0 [facility] Comment on above: Order Comment: Speci men Type: BLOOD SPECIMENOrdering Facility: [facility] Address: [address] [place] [address] Performed By: #### 5 7021-8 ####[facility]ATORYCLIA [id number] [address] Hematocrit (Bld) [Volume fraction] 30.6 % Low 39.0-51.0 [facility] Comment on above: Order Comment: Speci men Type: BLOOD SPECIMENOrdering Facility: [facility] Address: [address] [place] [address] Performed By: #### 5 7021-8 ####[facility]ATORYCLIA [id number] [address] Hemoglobin (Bld) [Mass/Vol] 9.6 g/dL Low 13.0-17.0 [facility] Comment on above: Order Comment: Speci men Type: BLOOD SPECIMENOrdering Facility: [facility] Address: [address] [place] [address] Performed By: #### 5 7021-8 ####[facility]ATORYCLIA [id number] [address] IMMATURE GRAN % 0.2 % Normal [facility] Comment on above: Order Comment: Speci men Type: BLOOD SPECIMENOrdering Facility: [facility] Address: [address] [place] [address] Performed By: #### 5 7021-8 ####[facility]ORYCLIA [id number] [address] IMMATURE GRAN ABS <0.03 Normal <0.10 [facility] Comment on above: Order Comment: Speci men Type: BLOOD SPECIMENOrdering Facility: [facility] Address: [address] [place] [address] Performed By: #### 5 7021-8 ####[facility]ATORYCLIA [id number] [address] OF [facility] Lymphocytes (Bld) [#/Vol] 1.66 10*3/uL Normal 1.00-4.00 [facility] Comment on above: Order Comment: Speci men Type: BLOOD SPECIMENOrdering Facility: [facility] Address: [address] [place] [address] Performed By: #### 5 7021-8 ####[facility]ATORYCLIA [id number] [address] Lymphocytes/100 WBC (Bld) 19.9 % Normal [facility] Comment on above: Order Comment: Speci men Type: BLOOD SPECIMENOrdering Facility: [facility] Address: [address] [place] [address] Performed By: #### 5 7021-8 ####[facility]ATORYCLIA [id number] [address] OF [facility] MCH (RBC) [Entitic mass] 28.9 pg Normal 26.0-34.0 [facility] Comment on above: Order Comment: Speci men Type: BLOOD SPECIMENOrdering Facility: [facility] Address: [address] [place] [address] Performed By: #### 5 7021-8 ####[facility]ATORYCLIA [id number] [address] STATES OF [facility] MCHC (RBC) [Mass/Vol] 31.4 g/dL Normal 30.5-36.0 [facility] Comment on above: Order Comment: Speci men Type: BLOOD SPECIMENOrdering Facility: [facility] Address: [address] [place] [address] Performed By: #### 5 7021-8 ####[facility]ORYCLIA [id number] [address] [place] MCV (RBC) [Entitic vol] 92.2 fL Normal 80.0-100.0 [facility] Comment on above: Order Comment: Speci men Type: BLOOD SPECIMENOrdering Facility: [facility] Address: [address] [place] [address] Performed By: #### 5 7021-8 ####[facility]ATORYCLIA [id number] [place] [address] [place] Monocytes (Bld) [#/Vol] 0.52 10*3/uL Normal <0.87 [facility] Comment on above: Order Comment: Speci men Type: BLOOD SPECIMENOrdering Facility: [facility] Address: [address] [place] [address] Performed By: #### 5 7021-8 ####[facility]ORYCLIA [id number] [address] STATES [facility] Monocytes/100 WBC (Bld) 6.2 % Normal [facility] Comment on above: Order Comment: Speci men Type: BLOOD SPECIMENOrdering Facility: [facility] Address: [address] [place] [address] Performed By: #### 5 7021-8 ####[facility]ORYCLIA [id number] [address] [place] Neutrophils (Bld) [#/Vol] 5.78 10*3/uL Normal 1.45-7.50 [facility] Comment on above: Order Comment: Speci men Type: BLOOD SPECIMENOrdering Facility: [facility] Address: [address] [place] [address] Performed By: #### 5 7021-8 ####[facility]ATORYCLIA [id number] [address] [place] Neutrophils/100 WBC (Bld) 69.5 % Normal [facility] Comment on above: Order Comment: Speci men Type: BLOOD SPECIMENOrdering Facility: [facility] Address: [address] [place] [address] Performed By: #### 5 7021-8 ####[facility]ORYCLIA [id number] [address] [place] Nucleated RBC (Bld) [#/Vol] 10*3/uL Normal <0.01 [facility] Comment on above: Order Comment: Speci men Type: BLOOD SPECIMENOrdering Facility: [facility] Address: [address] [place] [address] Performed By: #### 5 7021-8 ####[facility]ORYCLIA [id number] [address] [place] Nucleated RBC/100 WBC (Bld) [Ratio] 0.0 /100 WBC Normal [facility] Comment on above: Order Comment: Speci men Type: BLOOD SPECIMENOrdering Facility: [facility] Address: [address] [place] [address] Performed By: #### 5 7021-8 ####[facility]ATORYCLIA [id number] [address] [place] Platelet mean volume (Bld) [Entitic vol] 9.2 fL Normal 9.0-12.7 [facility] Comment on above: Order Comment: Speci men Type: BLOOD SPECIMENOrdering Facility: [facility] Address: [address] [place] [address] Performed By: #### 5 7021-8 ####[facility]ORYCLIA [id number] [address] [place] Platelets (Bld) [#/Vol] 379 10*3/uL Normal 150-400 [facility] Comment on above: Order Comment: Speci men Type: BLOOD SPECIMENOrdering Facility: [facility] Address: [address] [place] [address] Performed By: #### 5 7021-8 ####[facility]ORYCLIA [id number] [address] [place] RBC (Bld) [#/Vol] 3.32 10*6/uL Low 4.20-6.00 [facility] Comment on above: Order Comment: Speci men Type: BLOOD SPECIMENOrdering Facility: [facility] Address: [address] [place] [address] Performed By: #### 5 7021-8 ####[facility]ATORYCLIA [id number] [place] [address] [place] WBC (Bld) [#/Vol] 8.33 10*3/uL Normal 3.70-11.00 [facility] Comment on above: Order Comment: Speci men Type: BLOOD SPECIMENOrdering Facility: [facility] Address: [address] [place] [address] Performed By: #### 5 7021-8 ####[facility]ATORYCLIA [id number] [address] [place] CONSULT PROGon 08-17-2021 CONSULT PROG Normal [facility] NUTRITIONon 08-17-2021 NUTRITION Normal [facility] Basic metabolic 2000 panelon 08-16-2021 Anion gap [Moles/Vol] 14 mmol/L Normal 9-18 [facility] Comment on above: Order Comment: Speci men Type: BLOOD SPECIMENOrdering Facility: [facility] Address: [address] [place] [address] Performed By: #### 2 4321-2, ####[facility]ATORYCLIA [id number] [place] [address] [place] Calcium [Mass/Vol] 8.8 mg/dL Normal 8.5-10.2 [facility] Comment on above: Order Comment: Speci men Type: BLOOD SPECIMENOrdering Facility: [facility] Address: [address] [place] [address] Performed By: #### 2 4321-2, ####[facility]ATORYCLIA [id number] [place] [address] [place] Chloride [Moles/Vol] 97 mmol/L Normal 97-105 [facility] Comment on above: Order Comment: Speci men Type: BLOOD SPECIMENOrdering Facility: [facility] Address: [address] [place] [address] Performed By: #### 2 4322, ####[facility]ATORYCLIA [id number] [address] STATES OF [facility] CO2 [Moles/Vol] 27 mmol/L Normal 22-30 [facility] Comment on above: Order Comment: Speci men Type: BLOOD SPECIMENOrdering Facility: [facility] Address: [address] [place] [address] Performed By: #### 2 4320-06, ####[facility]ATORYCLIA [id number] [address] STATES OF [facility] Creatinine [Mass/Vol] 0.50 mg/dL Low 0.73-1.22 [facility] Comment on above: Order Comment: Speci men Type: BLOOD SPECIMENOrdering Facility: [facility] Address: [address] [place] [address] Performed By: #### 2 4320-06, ####[facility]ENTERCLIA [id number] [address] ESTIMATED GLOMERULAR FILTRATION RATE 110 mL/min/1.73m??? Normal >=60 [facility] Comment on above: Order Comment: Speci men Type: BLOOD SPECIMENOrdering Facility: [facility] Address: [address] [place] [address] Result Comment: Luzmaria mated Glomerular Filtration Rate [...] actual GFR. Performed By: #### 2 4321-2, ####[facility]ATORYCLIA [id number] [address] [place] Glucose [Mass/Vol] 101 mg/dL High 74-99 [facility] Comment on above: Order Comment: Shira feldman Type: BLOOD SPECIMENOrdering Facility: [facility] Address: [address] [place] [address] Result Comment: The [employer] (ADA) provides guidance for cutoff [...] Standards of Medical Care in Diabetes 2016, [employer]. Diabetes Care. 2016.39(Suppl 1). Performed By: #### 2 432-, ####[facility]ATORYCLIA [id number] [place] [address] [place] Potassium [Moles/Vol] 3.6 mmol/L Low 3.7-5.1 [facility] Comment on above: Order Comment: Shira feldman Type: BLOOD SPECIMENOrdering Facility: [facility] Address: [address] [place] [address] Performed By: #### 2 4320-06, ####[facility]ORYCLIA [id number] [place] [address] [place] Sodium [Moles/Vol] 138 mmol/L Normal 136-144 [facility] Comment on above: Order Comment: Shira feldman Type: BLOOD SPECIMENOrdering Facility: [facility] Address: [address] [place] [address] Performed By: #### 2 4320-06, ####[facility]ATORYCLIA [id number] [place] [address] [place] Urea nitrogen [Mass/Vol] 11 mg/dL Normal 9-24 [facility] Comment on above: Order Comment: Speci men Type: BLOOD SPECIMENOrdering Facility: [facility] Address: [address] [place] [address] Performed By: #### 2 4321-2, 83694-2 ####[facility]ATORYCLIA [id number] [address] [place] CASE MANAGEMon 08-16-2021 CASE MANAGEM Normal [facility] CBC W Auto Differential pane l (Bld)on 08-16-2021 Basophils (Bld) [#/Vol] 0.03 10*3/uL Normal <0.11 [facility] Comment on above: Order Comment: Speci men Type: BLOOD SPECIMENOrdering Facility: [facility] Address: [address] [place] [address] Performed By: #### 5 7021-8 ####[facility]ORYCLIA [id number] [address] STATES [facility] Basophils/100 WBC (Bld) 0.4 % Normal [facility] Comment on above: Order Comment: Speci men Type: BLOOD SPECIMENOrdering Facility: [facility] Address: [address] [place] [address] Performed By: #### 5 7021-8 ####[facility]ATORYCLIA [id number] [address] [place] Differential cell count method Nom (Bld) Auto Normal [facility] Comment on above: Order Comment: Speci men Type: BLOOD SPECIMENOrdering Facility: [facility] Address: [address] [place] [place] [address] Performed By: #### 5 7021-8 ####[facility]ATORYCLIA [id number] [place] [address] [place] Eosinophils (Bld) [#/Vol] 0.19 10*3/uL Normal <0.46 [facility] Comment on above: Order Comment: Speci men Type: BLOOD SPECIMENOrdering Facility: [facility] Address: [address] [address] Performed By: #### 5 7021-8 ####[facility]ATORYCLIA [id number] [address] [place] Eosinophils/100 WBC (Bld) 2.5 % Normal [facility] Comment on above: Order Comment: Speci men Type: BLOOD SPECIMENOrdering Facility: [facility] Address: [address] [place] [address] Performed By: #### 5 7021-8 ####[facility]ATORYCLIA [id number] [address] Erythrocyte distribution width (RBC) [Ratio] 17.1 % High 11.5-15.0 [facility] Comment on above: Order Comment: Speci men Type: BLOOD SPECIMENOrdering Facility: [facility] Address: [address] [place] [address] Performed By: #### 5 7021-8 ####[facility]ATORYCLIA [id number] [address] Hematocrit (Bld) [Volume fraction] 29.2 % Low 39.0-51.0 [facility] Comment on above: Order Comment: Speci men Type: BLOOD SPECIMENOrdering Facility: [facility] Address: [address] [place] [address] Performed By: #### 5 7021-8 ####[facility]ATORYCLIA [id number] [address] [place] Hemoglobin (Bld) [Mass/Vol] 9.0 g/dL Low 13.0-17.0 [facility] Comment on above: Order Comment: Speci men Type: BLOOD SPECIMENOrdering Facility: [facility] Address: [address] [place] [address] Performed By: #### 5 7021-8 ####[facility]ATORYCLIA [id number] [address] IMMATURE GRAN % 0.3 % Normal [facility] Comment on above: Order Comment: Speci men Type: BLOOD SPECIMENOrdering Facility: [facility] Address: [address] [address] Performed By: #### 5 7021-8 ####[facility]ATORYCLIA [id number] [address] IMMATURE GRAN ABS <0.03 Normal <0.10 [facility] Comment on above: Order Comment: Speci men Type: BLOOD SPECIMENOrdering Facility: [facility] Address: [address] [place] [address] Performed By: #### 5 7021-8 ####[facility]ATORYCLIA [id number] [address] Lymphocytes (Bld) [#/Vol] 1.41 10*3/uL Normal 1.00-4.00 [facility] Comment on above: Order Comment: Speci men Type: BLOOD SPECIMENOrdering Facility: [facility] Address: [address] [place] [address] Performed By: #### 5 7021-8 ####[facility]ATORYCLIA [id number] [address] Lymphocytes/100 WBC (Bld) 18.4 % Normal [facility] Comment on above: Order Comment: Speci men Type: BLOOD SPECIMENOrdering Facility: [facility] Address: [address] [place] [address] Performed By: #### 5 7021-8 ####[facility]ATORYCLIA [id number] [address] MCH (RBC) [Entitic mass] 28.0 pg Normal 26.0-34.0 [facility] Comment on above: Order Comment: Speci men Type: BLOOD SPECIMENOrdering Facility: [facility] Address: [address] [place] [address] Performed By: #### 5 7021-8 ####[facility]ATORYCLIA [id number] [address] [place] MCHC (RBC) [Mass/Vol] 30.8 g/dL Normal 30.5-36.0 [facility] Comment on above: Order Comment: Speci men Type: BLOOD SPECIMENOrdering Facility: [facility] Address: [address] [place] [address] Performed By: #### 5 7021-8 ####[facility]ATORYCLIA [id number] [address] [place] MCV (RBC) [Entitic vol] 91.0 fL Normal 80.0-100.0 [facility] Comment on above: Order Comment: Speci men Type: BLOOD SPECIMENOrdering Facility: [facility] Address: [address] [place] [address] Performed By: #### 5 7021-8 ####[facility]ORYCLIA [id number] [address] [place] Monocytes (Bld) [#/Vol] 0.47 10*3/uL Normal <0.87 [facility] Comment on above: Order Comment: Speci men Type: BLOOD SPECIMENOrdering Facility: [facility] Address: [address] [place] [address] Performed By: #### 5 7021-8 ####[facility]ORYCLIA [id number] [address] Monocytes/100 WBC (Bld) 6.1 % Normal [facility] Comment on above: Order Comment: Speci men Type: BLOOD SPECIMENOrdering Facility: [facility] Address: [address] [place] [address] Performed By: #### 5 7021-8 ####[facility]ATORYCLIA [id number] [address] [place] Neutrophils (Bld) [#/Vol] 5.55 10*3/uL Normal 1.45-7.50 [facility] Comment on above: Order Comment: Speci men Type: BLOOD SPECIMENOrdering Facility: [facility] Address: [address] [place] [address] Performed By: #### 5 7021-8 ####[facility]ATORYCLIA [id number] [address] [place] Neutrophils/100 WBC (Bld) 72.3 % Normal [facility] Comment on above: Order Comment: Speci men Type: BLOOD SPECIMENOrdering Facility: [facility] Address: [address] [place] [address] Performed By: #### 5 7021-8 ####[facility]ATORYCLIA [id number] [address] [place] Nucleated RBC (Bld) [#/Vol] 10*3/uL Normal <0.01 [facility] Comment on above: Order Comment: Speci men Type: BLOOD SPECIMENOrdering Facility: [facility] Address: [address] [place] [address] Performed By: #### 5 7021-8 ####[facility]ORYCLIA [id number] [address] STATES [facility] Nucleated RBC/100 WBC (Bld) [Ratio] 0.0 /100 WBC Normal [facility] Comment on above: Order Comment: Speci men Type: BLOOD SPECIMENOrdering Facility: [facility] Address: [address] [place] [address] Performed By: #### 5 7021-8 ####[facility]ATORYCLIA [id number] [address] [place] Platelet mean volume (Bld) [Entitic vol] 9.3 fL Normal 9.0-12.7 [facility] Comment on above: Order Comment: Speci men Type: BLOOD SPECIMENOrdering Facility: [facility] Address: [address] [place] [place] [address] Performed By: #### 5 7021-8 ####[facility]ATORYCLIA [id number] [address] [place] Platelets (Bld) [#/Vol] 319 10*3/uL Normal 150-400 [facility] Comment on above: Order Comment: Speci men Type: BLOOD SPECIMENOrdering Facility: [facility] Address: [address] [place] [address] Performed By: #### 5 7021-8 ####[facility]ATORYCLIA [id number] [address] STATES OF [facility] RBC (Bld) [#/Vol] 3.21 10*6/uL Low 4.20-6.00 [facility] Comment on above: Order Comment: Speci men Type: BLOOD SPECIMENOrdering Facility: [facility] Address: [address] [place] [address] Performed By: #### 5 7021-8 ####[facility]ATORYCLIA [id number] [place] [address] [place] WBC (Bld) [#/Vol] 7.67 10*3/uL Normal 3.70-11.00 [facility] Comment on above: Order Comment: Speci men Type: BLOOD SPECIMENOrdering Facility: [facility] Address: [address] [place] [address] Performed By: #### 5 7021-8 ####[facility]ATORYCLIA [id number] [address] STATES OF [facility] Basophils (Bld) [#/Vol] 0.04 10*3/uL Normal <0.11 [facility] Comment on above: Order Comment: Speci men Type: BLOOD SPECIMENOrdering Facility: [facility] Address: [address] [place] [address] Performed By: #### 5 7021-8 ####[facility]ATORYCLIA [id number] [address] Basophils/100 WBC (Bld) 0.5 % Normal [facility] Comment on above: Order Comment: Speci men Type: BLOOD SPECIMENOrdering Facility: [facility] Address: [address] [place] [address] Performed By: #### 5 7021-8 ####[facility]ATORYCLIA [id number] [address] [place] Differential cell count method Nom (Bld) Auto Normal [facility] Comment on above: Order Comment: Speci men Type: BLOOD SPECIMENOrdering Facility: [facility] Address: [address] [address] Performed By: #### 5 7021-8 ####[facility]ATORYCLIA [id number] [address] Eosinophils (Bld) [#/Vol] 0.19 10*3/uL Normal <0.46 [facility] Comment on above: Order Comment: Speci men Type: BLOOD SPECIMENOrdering Facility: [facility] Address: [address] [place] [address] Performed By: #### 5 7021-8 ####[facility]ORYCLIA [id number] [address] Eosinophils/100 WBC (Bld) 2.5 % Normal [facility] Comment on above: Order Comment: Speci men Type: BLOOD SPECIMENOrdering Facility: [facility] Address: [address] [place] [address] Performed By: #### 5 7021-8 ####[facility]ORYCLIA [id number] [address] Erythrocyte distribution width (RBC) [Ratio] 17.2 % High 11.5-15.0 [facility] Comment on above: Order Comment: Speci men Type: BLOOD SPECIMENOrdering Facility: [facility] Address: [address] [place] [address] Performed By: #### 5 7021-8 ####[facility]ORYCLIA [id number] [address] Hematocrit (Bld) [Volume fraction] 29.5 % Low 39.0-51.0 [facility] Comment on above: Order Comment: Speci men Type: BLOOD SPECIMENOrdering Facility: [facility] Address: [address] [place] [address] Performed By: #### 5 7021-8 ####[facility]ATORYCLIA [id number] [place] [address] Hemoglobin (Bld) [Mass/Vol] 9.2 g/dL Low 13.0-17.0 [facility] Comment on above: Order Comment: Speci men Type: BLOOD SPECIMENOrdering Facility: [facility] Address: [address] [place] [address] Performed By: #### 5 7021-8 ####[facility] LABORATORYCLIA [id number] [address] IMMATURE GRAN % 0.4 % Normal [facility] Comment on above: Order Comment: Speci men Type: BLOOD SPECIMENOrdering Facility: [facility] Address: [address] [place] [address] Performed By: #### 5 7021-8 ####[facility] LABORATORYCLIA [id number] [address] IMMATURE GRAN ABS 0.03 k/uL Normal <0.10 [facility] Comment on above: Order Comment: Speci men Type: BLOOD SPECIMENOrdering Facility: [facility] Address: [address] [place] [address] Performed By: #### 5 7021-8 ####[facility]ORATORYCLIA [id number] [address] Lymphocytes (Bld) [#/Vol] 1.50 10*3/uL Normal 1.00-4.00 [facility] Comment on above: Order Comment: Speci men Type: BLOOD SPECIMENOrdering Facility: [facility] Address: [address] [place] [address] Performed By: #### 5 7021-8 ####[facility]ORATORYCLIA [id number] [address] Lymphocytes/100 WBC (Bld) 19.7 % Normal [facility] Comment on above: Order Comment: Speci men Type: BLOOD SPECIMENOrdering Facility: [facility] Address: [address] [place] [address] Performed By: #### 5 7021-8 ####[facility]ORATORYCLIA [id number] [address] MCH (RBC) [Entitic mass] 28.3 pg Normal 26.0-34.0 [facility] Comment on above: Order Comment: Speci men Type: BLOOD SPECIMENOrdering Facility: [facility] Address: [address] [place] [address] Performed By: #### 5 7021-8 ####[facility]ORATORYCLIA [id number] [address] MCHC (RBC) [Mass/Vol] 31.2 g/dL Normal 30.5-36.0 [facility] Comment on above: Order Comment: Speci men Type: BLOOD SPECIMENOrdering Facility: [facility] Address: [address] [place] [address] Performed By: #### 5 7021-8 ####[facility]ATORYCLIA [id number] [address] MCV (RBC) [Entitic vol] 90.8 fL Normal 80.0-100.0 [facility] Comment on above: Order Comment: Speci men Type: BLOOD SPECIMENOrdering Facility: [facility] Address: [address] [place] [address] Performed By: #### 5 7021-8 ####[facility]ATORYCLIA [id number] [address] Monocytes (Bld) [#/Vol] 0.49 10*3/uL Normal <0.87 [facility] Comment on above: Order Comment: Speci men Type: BLOOD SPECIMENOrdering Facility: [facility] Address: [address] [place] [address] Performed By: #### 5 7021-8 ####[facility]ATORYCLIA [id number] [address] Monocytes/100 WBC (Bld) 6.4 % Normal [facility] Comment on above: Order Comment: Speci men Type: BLOOD SPECIMENOrdering Facility: [facility] Address: [address] [place] [address] Performed By: #### 5 7021-8 ####[facility]ORATORYCLIA [id number] [address] [place] Neutrophils (Bld) [#/Vol] 5.38 10*3/uL Normal 1.45-7.50 [facility] Comment on above: Order Comment: Speci men Type: BLOOD SPECIMENOrdering Facility: [facility] Address: [address] [place] [address] Performed By: #### 5 7021-8 ####[facility]ORYCLIA [id number] [address] [place] Neutrophils/100 WBC (Bld) 70.5 % Normal [facility] Comment on above: Order Comment: Speci men Type: BLOOD SPECIMENOrdering Facility: [facility] Address: [address] [place] [address] Performed By: #### 5 7021-8 ####[facility]ATORYCLIA [id number] [address] [place] Nucleated RBC (Bld) [#/Vol] 10*3/uL Normal <0.01 [facility] Comment on above: Order Comment: Speci men Type: BLOOD SPECIMENOrdering Facility: [facility] Address: [address] [place] [address] Performed By: #### 5 7021-8 ####[facility]ATORYCLIA [id number] [address] [place] Nucleated RBC/100 WBC (Bld) [Ratio] 0.0 /100 WBC Normal [facility] Comment on above: Order Comment: Speci men Type: BLOOD SPECIMENOrdering Facility: [facility] Address: [address] [place] [address] Performed By: #### 5 7021-8 ####[facility]ATORYCLIA [id number] [place] [address] [place] Platelet mean volume (Bld) [Entitic vol] 9.0 fL Normal 9.0-12.7 [facility] Comment on above: Order Comment: Speci men Type: BLOOD SPECIMENOrdering Facility: [facility] Address: [address] [address] Performed By: #### 5 7021-8 ####[facility]ORATORYCLIA [id number] [place] [address] [place] Platelets (Bld) [#/Vol] 316 10*3/uL Normal 150-400 [facility] Comment on above: Order Comment: Speci men Type: BLOOD SPECIMENOrdering Facility: [facility] Address: [address] [place] [address] Performed By: #### 5 7021-8 ####[facility]ATORYCLIA [id number] [place] [address] [place] RBC (Bld) [#/Vol] 3.25 10*6/uL Low 4.20-6.00 [facility] Comment on above: Order Comment: Speci men Type: BLOOD SPECIMENOrdering Facility: [facility] Address: [address] [place] [address] Performed By: #### 5 7021-8 ####[facility]ATORYCLIA [id number] [address] [place] WBC (Bld) [#/Vol] 7.63 10*3/uL Normal 3.70-11.00 [facility] Comment on above: Order Comment: Speci men Type: BLOOD SPECIMENOrdering Facility: [facility] Address: [address] [place], [place] [address] Performed By: #### 5 7021-8 ####[facility]ORATORYCLIA [id number] [address] [place] Basophils (Bld) [#/Vol] Normal <0.11 [facility] Comment on above: Order Comment: Speci men Type: BLOOD SPECIMENOrdering Facility: [facility] Address: [address] [place] [address] Result Comment: Carolina Owens RN informed lab after results autoverified that she rd on the wrong patient. Lab to credit. Nurse to redraw on correct patient.Corrected result: Previously reported as 0.04 k/uL on 08/16/2021 at 4:44 AM EDT. Performed By: #### 5 7021-8 ####[facility]ATORYCLIA [id number] [address] STATES [facility] Basophils/100 WBC (Bld) Normal [facility] Comment on above: Order Comment: Speci men Type: BLOOD SPECIMENOrdering Facility: [facility] Address: [address] [place] [address] Result Comment: Tati ected result: Previously reported as 0.4 % on 08/16/2021 at 4:44 AM EDT. Performed By: #### 5 7021-8 ####[facility]ATORYCLIA [id number] [address] CBC W Differential panel, method unspecified (Bld) Normal [facility] Comment on above: Order Comment: Speci men Type: BLOOD SPECIMENOrdering Facility: [facility] Address: [address] [place] [address] Result Comment: Carolina Owens RN informed lab after results autoverified that she rd on the wrong patient. Lab to credit. Nurse to redraw on correct patient. Performed By: #### 5 7021-8 ####[facility]ATORYCLIA [id number] [address] STATES [facility] Differential cell count method Nom (Bld) Normal [facility] Comment on above: Order Comment: Speci men Type: BLOOD SPECIMENOrdering Facility: [facility] Address: [address] [place] [address] Result Comment: Carolina Owens RN informed lab after results autoverified that she rd on the wrong patient. Lab to credit. Nurse to redraw on correct patient.Corrected result: Previously reported as Auto on 08/16/2021 at 4:44 AM EDT. Performed By: #### 5 7021-8 ####[facility]ATORYCLIA [id number] [address] Eosinophils (Bld) [#/Vol] Normal <0.46 [facility] Comment on above: Order Comment: Speci men Type: BLOOD SPECIMENOrdering Facility: [facility] Address: [address] [place] [address] Result Comment: Carolina Owens RN informed lab after results autoverified that she rd on the wrong patient. Lab to credit. Nurse to redraw on correct patient.Corrected result: Previously reported as 0.07 k/uL on 08/16/2021 at 4:44 AM EDT. Performed By: #### 5 7021-8 ####[facility]ATORYCLIA [id number] [address] Eosinophils/100 WBC (Bld) Normal [facility] Comment on above: Order Comment: Speci men Type: BLOOD SPECIMENOrdering Facility: [facility] Address: [address] [place] [address] Result Comment: Carolina Owens RN informed lab after results autoverified that she rd on the wrong patient. Lab to credit. Nurse to redraw on correct patient.Corrected result: Previously reported as 0.7 % on 08/16/2021 at 4:44 AM EDT. Performed By: #### 5 7021-8 ####[facility]ATORYCLIA [id number] [address] Erythrocyte distribution width (RBC) [Ratio] Normal 11.5-15.0 [facility] Comment on above: Order Comment: Speci men Type: BLOOD SPECIMENOrdering Facility: [facility] Address: [address] [place] [place] [address] Result Comment: Carolina Owens RN informed lab after results autoverified that she rd on the wrong patient. Lab to credit. Nurse to redraw on correct patient.Corrected result: Previously reported as 14.2 % on 08/16/2021 at 4:44 AM EDT. Performed By: #### 5 7021-8 ####[facility]ATORYCLIA [id number] [address] Hematocrit (Bld) [Volume fraction] Normal 39.0-51.0 [facility] Comment on above: Order Comment: Speci men Type: BLOOD SPECIMENOrdering Facility: [facility] Address: [address] [place] [address] Result Comment: Carolina Owens RN informed lab after results autoverified that she rd on the wrong patient. Lab to credit. Nurse to redraw on correct patient.Corrected result: Previously reported as 34.3 % on 08/16/2021 at 4:44 AM EDT. Performed By: #### 5 7021-8 ####[facility]ATORYCLIA [id number] [address] Hemoglobin (Bld) [Mass/Vol] Normal 13.0-17.0 [facility] Comment on above: Order Comment: Speci men Type: BLOOD SPECIMENOrdering Facility: [facility] Address: [address] [place] [address] Result Comment: Carolina Owens RN informed lab after results autoverified that she rd on the wrong patient. Lab to credit. Nurse to redraw on correct patient.Corrected result: Previously reported as 11.2 g/dL on 08/16/2021 at 4:44 AM EDT. Performed By: #### 5 7021-8 ####[facility]ATORYCLIA [id number] [address] IMMATURE GRAN % Normal [facility] Comment on above: Order Comment: Speci men Type: BLOOD SPECIMENOrdering Facility: [facility] Address: [address] [place] [address] Result Comment: Carolina Owens RN informed lab after results autoverified that she rd on the wrong patient. Lab to credit. Nurse to redraw on correct patient.Corrected result: Previously reported as 0.8 % on 08/16/2021 at 4:44 AM EDT. Performed By: #### 5 7021-8 ####[facility]ATORYCLIA [id number] [address] OF [facility] IMMATURE GRAN ABS Normal <0.10 [facility] Comment on above: Order Comment: Speci men Type: BLOOD SPECIMENOrdering Facility: [facility] Address: [address] [place] [address] Result Comment: Tati ected result: Previously reported as 0.08 k/uL on 08/16/2021 at 4:44 AM EDT. Performed By: #### 5 7021-8 ####[facility]ATORYCLIA [id number] [address] Lymphocytes (Bld) [#/Vol] Normal 1.00-4.00 [facility] Comment on above: Order Comment: Speci men Type: BLOOD SPECIMENOrdering Facility: [facility] Address: [address] [place] [address] Result Comment: Carolina Owens RN informed lab after results autoverified that she rd on the wrong patient. Lab to credit. Nurse to redraw on correct patient.Corrected result: Previously reported as 1.17 k/uL on 08/16/2021 at 4:44 AM EDT. Performed By: #### 5 7021-8 ####[facility]ATORYCLIA [id number] [address] Lymphocytes/100 WBC (Bld) Normal [facility] Comment on above: Order Comment: Speci men Type: BLOOD SPECIMENOrdering Facility: [facility] Address: [address] [place] [address] Result Comment: Carolina Owens RN informed lab after results autoverified that she rd on the wrong patient. Lab to credit. Nurse to redraw on correct patient.Corrected result: Previously reported as 12.0 % on 08/16/2021 at 4:44 AM EDT. Performed By: #### 5 7021-8 ####[facility]ATORYCLIA [id number] [address] [place] MCHC (RBC) [Mass/Vol] Normal 30.5-36.0 [facility] Comment on above: Order Comment: Speci men Type: BLOOD SPECIMENOrdering Facility: [facility] Address: [address] [place] [address] Result Comment: Carolina Owens RN informed lab after results autoverified that she rd on the wrong patient. Lab to credit. Nurse to redraw on correct patient.Corrected result: Previously reported as 32.7 g/dL on 08/16/2021 at 4:44 AM EDT. Performed By: #### 5 7021-8 ####[facility]ATORYCLIA [id number] [address] [place] MCV (RBC) [Entitic vol] Normal 80.0-100.0 [facility] Comment on above: Order Comment: Speci men Type: BLOOD SPECIMENOrdering Facility: [facility] Address: [address] [place] [address] Result Comment: Carolina Owens RN informed lab after results autoverified that she rd on the wrong patient. Lab to credit. Nurse to redraw on correct patient.Corrected result: Previously reported as 94.2 fL on 08/16/2021 at 4:44 AM EDT. Performed By: #### 5 7021-8 ####[facility]ATORYCLIA [id number] [address] STATES OF [facility] Monocytes (Bld) [#/Vol] Normal <0.87 [facility] Comment on above: Order Comment: Speci men Type: BLOOD SPECIMENOrdering Facility: [facility] Address: [address] [place] [address] Result Comment: Carolina Owens RN informed lab after results autoverified that she rd on the wrong patient. Lab to credit. Nurse to redraw on correct patient.Corrected result: Previously reported as 0.99 k/uL on 08/16/2021 at 4:44 AM EDT. Performed By: #### 5 7021-8 ####[facility]ORYCLIA [id number] [address] [place] Monocytes/100 WBC (Bld) Normal [facility] Comment on above: Order Comment: Speci men Type: BLOOD SPECIMENOrdering Facility: [facility] Address: [address] [place] [address] Result Comment: Carolina Owens RN informed lab after results autoverified that she rd on the wrong patient. Lab to credit. Nurse to redraw on correct patient.Corrected result: Previously reported as 10.2 % on 08/16/2021 at 4:44 AM EDT. Performed By: #### 5 7021-8 ####[facility]ATORYCLIA [id number] [address] [place] Neutrophils (Bld) [#/Vol] Normal 1.45-7.50 [facility] Comment on above: Order Comment: Speci men Type: BLOOD SPECIMENOrdering Facility: [facility] Address: [address] [place] [address] Result Comment: Carolina Owens RN informed lab after results autoverified that she rd on the wrong patient. Lab to credit. Nurse to redraw on correct patient.Corrected result: Previously reported as 7.40 k/uL on 08/16/2021 at 4:44 AM EDT. Performed By: #### 5 7021-8 ####[facility]ATORYCLIA [id number] [address] [place] Neutrophils/100 WBC (Bld) Normal [facility] Comment on above: Order Comment: Speci men Type: BLOOD SPECIMENOrdering Facility: [facility] Address: [address] [place] [address] Result Comment: Carolina Owens RN informed lab after results autoverified that she rd on the wrong patient. Lab to credit. Nurse to redraw on correct patient.Corrected result: Previously reported as 75.9 % on 08/16/2021 at 4:44 AM EDT. Performed By: #### 5 7021-8 ####[facility]ORYCLIA [id number] [place] [address] [place] Platelet mean volume (Bld) [Entitic vol] Normal 9.0-12.7 [facility] Comment on above: Order Comment: Speci men Type: BLOOD SPECIMENOrdering Facility: [facility] Address: [address] [place] [address] Result Comment: Carolina Owens RN informed lab after results autoverified that she rd on the wrong patient. Lab to credit. Nurse to redraw on correct patient.Corrected result: Previously reported as 9.1 fL on 08/16/2021 at 4:44 AM EDT. Performed By: #### 5 7021-8 ####[facility]ATORYCLIA [id number] [address] [place] Platelets (Bld) [#/Vol] Normal 150-400 [facility] Comment on above: Order Comment: Speci men Type: BLOOD SPECIMENOrdering Facility: [facility] Address: [address] [place] [address] Result Comment: Carolina Owens RN informed lab after results autoverified that she rd on the wrong patient. Lab to credit. Nurse to redraw on correct patient.Corrected result: Previously reported as 338 k/uL on 08/16/2021 at 4:44 AM EDT. Performed By: #### 5 7021-8 ####[facility]ATORYCLIA [id number] [place] [address] [place] RBC (Bld) [#/Vol] Normal 4.20-6.00 [facility] Comment on above: Order Comment: Speci men Type: BLOOD SPECIMENOrdering Facility: [facility] Address: [address] [place] [address] Result Comment: Carolina Owens RN informed lab after results autoverified that she rd on the wrong patient. Lab to credit. Nurse to redraw on correct patient.Corrected result: Previously reported as 3.64 m/uL on 08/16/2021 at 4:44 AM EDT. Performed By: #### 5 7021-8 ####[facility]ORYCLIA [id number] [place] [address] [place] WBC (Bld) [#/Vol] Normal 3.70-11.00 [facility] Comment on above: Order Comment: Speci men Type: BLOOD SPECIMENOrdering Facility: [facility] Address: [address] [place] [address] Result Comment: Carolina Owens RN informed lab after results autoverified that she rd on the wrong patient. Lab to credit. Nurse to redraw on correct patient.Corrected result: Previously reported as 9.75 k/uL on 08/16/2021 at 4:44 AM EDT. Performed By: #### 5 7021-8 ####[facility]ATORYCLIA [id number] [address] CONSULT PROGon 08-16-2021 CONSULT PROG Normal [facility] Magnesium SerPl-mCncon 08-16 Magnesium [Mass/Vol] 1.8 mg/dL Normal 1.7-2.3 [facility] Comment on above: Order Comment: Speci men Type: BLOOD SPECIMENOrdering Facility: [facility] Address: [address] [place] [address] Performed By: #### 2 4321-2, 21871-4 ####[facility]ATORYCLIA [id number] [address] [place] NURSING PROGon 08-16-2021 NURSING PROG Normal [facility] Basic metabolic 2000 panelon 08-15-2021 Anion gap [Moles/Vol] 13 mmol/L Normal 9-18 [facility] Comment on above: Order Comment: Speci men Type: BLOOD SPECIMENOrdering Facility: [facility] Address: [address] [place] [address] Performed By: #### 2 4321-2 ####[facility]ATORYCLIA [id number] [address] STATES OF [facility] Calcium [Mass/Vol] 9.0 mg/dL Normal 8.5-10.2 [facility] Comment on above: Order Comment: Speci men Type: BLOOD SPECIMENOrdering Facility: [facility] Address: [address] [place] [address] Performed By: #### 2 4321-2 ####[facility]ATORYCLIA [id number] [address] Chloride [Moles/Vol] 95 mmol/L Low 97-105 [facility] Comment on above: Order Comment: Speci men Type: BLOOD SPECIMENOrdering Facility: [facility] Address: [address] [place] [place] [address] Performed By: #### 2 4321-2 ####[facility]ATORYCLIA [id number] [address] CO2 [Moles/Vol] 28 mmol/L Normal 22-30 [facility] Comment on above: Order Comment: Speci men Type: BLOOD SPECIMENOrdering Facility: [facility] Address: [address] [place] [address] Performed By: #### 2 4321-2 ####[facility]CLIA [id number] [address] Creatinine [Mass/Vol] 0.50 mg/dL Low 0.73-1.22 [facility] Comment on above: Order Comment: Speci men Type: BLOOD SPECIMENOrdering Facility: [facility] Address: [address] [place] [address] Performed By: #### 2 4321-2 ####[facility]ORATORYCLIA [id number] [address] ESTIMATED GLOMERULAR FILTRATION RATE 110 mL/min/1.73m??? Normal >=60 [facility] Comment on above: Order Comment: Speci men Type: BLOOD SPECIMENOrdering Facility: [facility] Address: [address] [place] [address] Result Comment: Luzmaria mated Glomerular Filtration Rate [...] actual GFR. Performed By: #### 2 4321-2 ####[facility] LABORATORYCLIA [id number] [place] [address] [place] Glucose [Mass/Vol] 106 mg/dL High 74-99 [facility] Comment on above: Order Comment: Shira feldman Type: BLOOD SPECIMENOrdering Facility: [facility] Address: [address] [place] [address] Result Comment: The [employer] (ADA) provides guidance for cutoff [...] Standards of Medical Care in Diabetes 2016, [employer]. Diabetes Care. 2016.39(Suppl 1). Performed By: #### 2 4321-2 ####[facility] LABORATORYCLIA [id number] [place] [address] [place] Potassium [Moles/Vol] 3.3 mmol/L Low 3.7-5.1 [facility] Comment on above: Order Comment: Shira feldman Type: BLOOD SPECIMENOrdering Facility: [facility] Address: [address] [place] [address] Performed By: #### 2 4321-2 ####[facility]ORATORYCLIA [id number] [place] [address] [place] Sodium [Moles/Vol] 136 mmol/L Normal 136-144 [facility] Comment on above: Order Comment: Shira men Type: BLOOD SPECIMENOrdering Facility: [facility] Address: [address] [place] [address] Performed By: #### 2 4321-2 ####[facility]ORATORYCLIA [id number] [place] [address] [place] Urea nitrogen [Mass/Vol] 11 mg/dL Normal 9-24 [facility] Comment on above: Order Comment: Speci men Type: BLOOD SPECIMENOrdering Facility: [facility] Address: [address] [place] [address] Performed By: #### 2 4321-2 ####[facility] LABORATORYCLIA [id number] [address] [place] CASE MANAGEMon 08-15-2021 CASE MANAGEM Normal [facility] CBC W Auto Differential pane l (Bld)on 08-15-2021 Basophils (Bld) [#/Vol] 0.03 10*3/uL Normal <0.11 [facility] Comment on above: Order Comment: Speci men Type: BLOOD SPECIMENOrdering Facility: [facility] Address: [address] [place] [address] Performed By: #### 5 7021-8 ####[facility]ORATORYCLIA [id number] [address] [place] Basophils/100 WBC (Bld) 0.4 % Normal [facility] Comment on above: Order Comment: Speci men Type: BLOOD SPECIMENOrdering Facility: [facility] Address: [address] [place] [address] Performed By: #### 5 7021-8 ####[facility]ORATORYCLIA [id number] [address] [place] Differential cell count method Nom (Bld) Auto Normal [facility] Comment on above: Order Comment: Speci men Type: BLOOD SPECIMENOrdering Facility: [facility] [facility] Address: [address] [place] [address] Performed By: #### 5 7021-8 ####[facility]ATORYCLIA [id number] [place] [address] [place] Eosinophils (Bld) [#/Vol] 0.20 10*3/uL Normal <0.46 [facility] Comment on above: Order Comment: Speci men Type: BLOOD SPECIMENOrdering Facility: [facility] Address: [address] [place] [address] Performed By: #### 5 7021-8 ####[facility]ATORYCLIA [id number] [address] STATES [facility] Eosinophils/100 WBC (Bld) 2.5 % Normal [facility] Comment on above: Order Comment: Speci men Type: BLOOD SPECIMENOrdering Facility: [facility] Address: [address] [place] [address] Performed By: #### 5 7021-8 ####[facility]ATORYCLIA [id number] [address] Erythrocyte distribution width (RBC) [Ratio] 16.7 % High 11.5-15.0 [facility] Comment on above: Order Comment: Speci men Type: BLOOD SPECIMENOrdering Facility: [facility] Address: [address] [place] [address] Performed By: #### 5 7021-8 ####[facility]ORYCLIA [id number] [address] Hematocrit (Bld) [Volume fraction] 30.3 % Low 39.0-51.0 [facility] Comment on above: Order Comment: Speci men Type: BLOOD SPECIMENOrdering Facility: [facility] Address: [address] [place] [address] Performed By: #### 5 7021-8 ####[facility]ORYCLIA [id number] [address] [place] Hemoglobin (Bld) [Mass/Vol] 9.4 g/dL Low 13.0-17.0 [facility] Comment on above: Order Comment: Speci men Type: BLOOD SPECIMENOrdering Facility: [facility] Address: [address] [place] [address] Performed By: #### 5 7021-8 ####[facility]ORYCLIA [id number] [address] [place] IMMATURE GRAN % 0.4 % Normal [facility] Comment on above: Order Comment: Speci men Type: BLOOD SPECIMENOrdering Facility: [facility] Address: [address] [place] [address] Performed By: #### 5 7021-8 ####[facility]ORYCLIA [id number] [address] IMMATURE GRAN ABS 0.03 k/uL Normal <0.10 [facility] Comment on above: Order Comment: Speci men Type: BLOOD SPECIMENOrdering Facility: [facility] Address: [address] [place] [address] Performed By: #### 5 7021-8 ####[facility]ORYCLIA [id number] [address] Lymphocytes (Bld) [#/Vol] 1.50 10*3/uL Normal 1.00-4.00 [facility] Comment on above: Order Comment: Speci men Type: BLOOD SPECIMENOrdering Facility: [facility] Address: [address] [place] [address] Performed By: #### 5 7021-8 ####[facility]ORYCLIA [id number] [address] Lymphocytes/100 WBC (Bld) 18.5 % Normal [facility] Comment on above: Order Comment: Speci men Type: BLOOD SPECIMENOrdering Facility: [facility] Address: [address] [place] [address] Performed By: #### 5 7021-8 ####[facility]ORYCLIA [id number] [address] MCH (RBC) [Entitic mass] 29.0 pg Normal 26.0-34.0 [facility] Comment on above: Order Comment: Speci men Type: BLOOD SPECIMENOrdering Facility: [facility] Address: [address] [place] [address] Performed By: #### 5 7021-8 ####[facility]ORYCLIA [id number] [address] MCHC (RBC) [Mass/Vol] 31.0 g/dL Normal 30.5-36.0 [facility] Comment on above: Order Comment: Speci men Type: BLOOD SPECIMENOrdering Facility: [facility] Address: [address] [place] [place] [address] Performed By: #### 5 7021-8 ####[facility]ORYCLIA [id number] [address] [place] MCV (RBC) [Entitic vol] 93.5 fL Normal 80.0-100.0 [facility] Comment on above: Order Comment: Speci men Type: BLOOD SPECIMENOrdering Facility: [facility] Address: [address] [place] [address] Performed By: #### 5 7021-8 ####[facility]ORYCLIA [id number] [address] [place] Monocytes (Bld) [#/Vol] 0.47 10*3/uL Normal <0.87 [facility] Comment on above: Order Comment: Speci men Type: BLOOD SPECIMENOrdering Facility: [facility] Address: [address] [place] [address] Performed By: #### 5 7021-8 ####[facility]ORYCLIA [id number] [address] [place] Monocytes/100 WBC (Bld) 5.8 % Normal [facility] Comment on above: Order Comment: Speci men Type: BLOOD SPECIMENOrdering Facility: [facility] Address: [address] [place] [place] [address] Performed By: #### 5 7021-8 ####[facility]ORYCLIA [id number] [address] [place] Neutrophils (Bld) [#/Vol] 5.87 10*3/uL Normal 1.45-7.50 [facility] Comment on above: Order Comment: Speci men Type: BLOOD SPECIMENOrdering Facility: [facility] Address: [address] [place] [address] Performed By: #### 5 7021-8 ####[facility]ORYCLIA [id number] [address] [place] Neutrophils/100 WBC (Bld) 72.4 % Normal [facility] Comment on above: Order Comment: Speci men Type: BLOOD SPECIMENOrdering Facility: [facility] Address: [address] [place] [address] Performed By: #### 5 7021-8 ####[facility]ORYCLIA [id number] [address] [place] Nucleated RBC (Bld) [#/Vol] 10*3/uL Normal <0.01 [facility] Comment on above: Order Comment: Speci men Type: BLOOD SPECIMENOrdering Facility: [facility] Address: [address] [place] [address] Performed By: #### 5 7021-8 ####[facility]ORYCLIA [id number] [address] Nucleated RBC/100 WBC (Bld) [Ratio] 0.0 /100 WBC Normal [facility] Comment on above: Order Comment: Speci men Type: BLOOD SPECIMENOrdering Facility: [facility] Address: [address] [place] [address] Performed By: #### 5 7021-8 ####[facility]ATORYCLIA [id number] [address] [place] Platelet mean volume (Bld) [Entitic vol] 9.4 fL Normal 9.0-12.7 [facility] Comment on above: Order Comment: Speci men Type: BLOOD SPECIMENOrdering Facility: [facility] Address: [address] [place] [address] Performed By: #### 5 7021-8 ####[facility]ORYCLIA [id number] [address] [place] Platelets (Bld) [#/Vol] 290 10*3/uL Normal 150-400 [facility] Comment on above: Order Comment: Speci men Type: BLOOD SPECIMENOrdering Facility: [facility] Address: [address] [place] [address] Performed By: #### 5 7021-8 ####[facility]ORYCLIA [id number] [address] OF [facility] RBC (Bld) [#/Vol] 3.24 10*6/uL Low 4.20-6.00 [facility] Comment on above: Order Comment: Speci men Type: BLOOD SPECIMENOrdering Facility: [facility] Address: [address] [place] [address] Performed By: #### 5 7021-8 ####[facility]ORYCLIA [id number] [address] OF [facility] WBC (Bld) [#/Vol] 8.10 10*3/uL Normal 3.70-11.00 [facility] Comment on above: Order Comment: Speci men Type: BLOOD SPECIMENOrdering Facility: [facility] Address: [address] [place] [address] Performed By: #### 5 7021-8 ####[facility]ATORYCLIA [id number] [address] OF [facility] THERAPY NTon 08-15-2021 THERAPY NT Normal [facility] THERAPY NT Normal [facility] THERAPY NT Normal [facility] Basic metabolic 2000 panelon 08-14-2021 Anion gap [Moles/Vol] 10 mmol/L Normal 9-18 [facility] Comment on above: Order Comment: Speci men Type: BLOOD SPECIMENOrdering Facility: [facility] Address: [address] [place] [address] Performed By: #### 2 4321-2 ####[facility]ORYCLIA [id number] [address] Calcium [Mass/Vol] 8.8 mg/dL Normal 8.5-10.2 [facility] Comment on above: Order Comment: Speci men Type: BLOOD SPECIMENOrdering Facility: [facility] Address: [address] [place] [address] Performed By: #### 2 4321-2 ####[facility]ORYCLIA [id number] [address] STATES OF [facility] Chloride [Moles/Vol] 92 mmol/L Low 97-105 [facility] Comment on above: Order Comment: Speci men Type: BLOOD SPECIMENOrdering Facility: [facility] Address: [address] [place] [address] Performed By: #### 2 4321-2 ####[facility]ATORYCLIA [id number] [address] [place] CO2 [Moles/Vol] 29 mmol/L Normal 22-30 [facility] Comment on above: Order Comment: Speci men Type: BLOOD SPECIMENOrdering Facility: [facility] Address: [address] [place] [address] Performed By: #### 2 4321-2 ####[facility]ATORYCLIA [id number] [address] Creatinine [Mass/Vol] 0.49 mg/dL Low 0.73-1.22 [facility] Comment on above: Order Comment: Speci men Type: BLOOD SPECIMENOrdering Facility: [facility] Address: [address] [place] [address] Performed By: #### 2 4321-2 ####[facility]ORYCLIA [id number] [address] ESTIMATED GLOMERULAR FILTRATION RATE 111 mL/min/1.73m??? Normal >=60 [facility] Comment on above: Order Comment: Speci men Type: BLOOD SPECIMENOrdering Facility: [facility] Address: [address] [place] [address] Result Comment: Luzmaria mated Glomerular Filtration Rate [...] actual GFR. Performed By: #### 2 4321-2 ####[facility]ORYCLIA [id number] [place] [address] [place] Glucose [Mass/Vol] 104 mg/dL High 74-99 [facility] Comment on above: Order Comment: Shira francia Type: BLOOD SPECIMENOrdering Facility: [facility] Address: [address] [place] [address] Result Comment: The [employer] (ADA) provides guidance for cutoff [...] Standards of Medical Care in Diabetes 2016, [employer]. Diabetes Care. 2016.39(Suppl 1). Performed By: #### 2 4321-2 ####[facility]ATORYCLIA [id number] [place] [address] [place] Potassium [Moles/Vol] 3.1 mmol/L Low 3.7-5.1 [facility] Comment on above: Order Comment: Shira feldman Type: BLOOD SPECIMENOrdering Facility: [facility] Address: [address] [address] Performed By: #### 2 4321-2 ####[facility]ATORYCLIA [id number] [place] [address] [place] Sodium [Moles/Vol] 131 mmol/L Low 136-144 [facility] Comment on above: Order Comment: Shira feldman Type: BLOOD SPECIMENOrdering Facility: [facility] Address: [address] [address] Performed By: #### 2 4321-2 ####[facility]ATORYCLIA [id number] [place] [address] [place] Urea nitrogen [Mass/Vol] 13 mg/dL Normal 9-24 [facility] Comment on above: Order Comment: Speci men Type: BLOOD SPECIMENOrdering Facility: [facility] Address: [address] [place] [address] Performed By: #### 2 4321-2 ####[facility]ORYCLIA [id number] [place] [address] [place] CBC W Auto Differential pane l (Bld)on 08-14-2021 Basophils (Bld) [#/Vol] 10*3/uL Normal <0.11 [facility] Comment on above: Order Comment: Speci men Type: BLOOD SPECIMENOrdering Facility: [facility] Address: [address] [place] [address] Performed By: #### 5 7021-8 ####[facility]ORYCLIA [id number] [place] [address] [place] Basophils/100 WBC (Bld) 0.2 % Normal [facility] Comment on above: Order Comment: Speci men Type: BLOOD SPECIMENOrdering Facility: [facility] Address: [address] [place] [address] Performed By: #### 5 7021-8 ####[facility]ATORYCLIA [id number] [address] STATES [facility] Differential cell count method Nom (Bld) Auto Normal [facility] Comment on above: Order Comment: Speci men Type: BLOOD SPECIMENOrdering Facility: [facility] Address: [address] [place] [address] Performed By: #### 5 7021-8 ####[facility]ORYCLIA [id number] [place] [address] [place] Eosinophils (Bld) [#/Vol] 0.23 10*3/uL Normal <0.46 [facility] Comment on above: Order Comment: Speci men Type: BLOOD SPECIMENOrdering Facility: [facility] Address: [address] [address] Performed By: #### 5 7021-8 ####[facility]ATORYCLIA [id number] [address] STATES [facility] Eosinophils/100 WBC (Bld) 2.7 % Normal [facility] Comment on above: Order Comment: Speci men Type: BLOOD SPECIMENOrdering Facility: [facility] Address: [address] [place] [address] Performed By: #### 5 7021-8 ####[facility]ATORYCLIA [id number] [address] [place] Erythrocyte distribution width (RBC) [Ratio] 16.6 % High 11.5-15.0 [facility] Comment on above: Order Comment: Speci men Type: BLOOD SPECIMENOrdering Facility: [facility] Address: [address] [place] [address] Performed By: #### 5 7021-8 ####[facility]ATORYCLIA [id number] [address] Hematocrit (Bld) [Volume fraction] 28.6 % Low 39.0-51.0 [facility] Comment on above: Order Comment: Speci men Type: BLOOD SPECIMENOrdering Facility: [facility] Address: [address] [place] [address] Performed By: #### 5 7021-8 ####[facility]ATORYCLIA [id number] [address] [place] Hemoglobin (Bld) [Mass/Vol] 9.0 g/dL Low 13.0-17.0 [facility] Comment on above: Order Comment: Speci men Type: BLOOD SPECIMENOrdering Facility: [facility] Address: [address] [place] [address] Performed By: #### 5 7021-8 ####[facility]ATORYCLIA [id number] [address] [place] IMMATURE GRAN % 0.2 % Normal [facility] Comment on above: Order Comment: Speci men Type: BLOOD SPECIMENOrdering Facility: [facility] Address: [address] [place] [address] Performed By: #### 5 7021-8 ####[facility]ORYCLIA [id number] [address] STATES [facility] IMMATURE GRAN ABS <0.03 Normal <0.10 [facility] Comment on above: Order Comment: Speci men Type: BLOOD SPECIMENOrdering Facility: [facility] Address: [address] [place] [address] Performed By: #### 5 7021-8 ####[facility]ORYCLIA [id number] [address] Lymphocytes (Bld) [#/Vol] 1.33 10*3/uL Normal 1.00-4.00 [facility] Comment on above: Order Comment: Speci men Type: BLOOD SPECIMENOrdering Facility: [facility] Address: [address] [place] [address] Performed By: #### 5 7021-8 ####[facility]ORYCLIA [id number] [address] Lymphocytes/100 WBC (Bld) 15.6 % Normal [facility] Comment on above: Order Comment: Speci men Type: BLOOD SPECIMENOrdering Facility: [facility] Address: [address] [place] [address] Performed By: #### 5 7021-8 ####[facility]ORYCLIA [id number] [address] MCH (RBC) [Entitic mass] 29.0 pg Normal 26.0-34.0 [facility] Comment on above: Order Comment: Speci men Type: BLOOD SPECIMENOrdering Facility: [facility] Address: [address] [place] [address] Performed By: #### 5 7021-8 ####[facility]ORYCLIA [id number] [address] MCHC (RBC) [Mass/Vol] 31.5 g/dL Normal 30.5-36.0 [facility] Comment on above: Order Comment: Speci men Type: BLOOD SPECIMENOrdering Facility: [facility] Address: [address] [place] [address] Performed By: #### 5 7021-8 ####[facility]ORYCLIA [id number] [address] [place] MCV (RBC) [Entitic vol] 92.3 fL Normal 80.0-100.0 [facility] Comment on above: Order Comment: Speci men Type: BLOOD SPECIMENOrdering Facility: [facility] Address: [address] [place] [address] Performed By: #### 5 7021-8 ####[facility]ORYCLIA [id number] [address] [place] Monocytes (Bld) [#/Vol] 0.44 10*3/uL Normal <0.87 [facility] Comment on above: Order Comment: Speci men Type: BLOOD SPECIMENOrdering Facility: [facility] Address: [address] [place] [address] Performed By: #### 5 7021-8 ####[facility]ORYCLIA [id number] [address] [place] Monocytes/100 WBC (Bld) 5.2 % Normal [facility] Comment on above: Order Comment: Speci men Type: BLOOD SPECIMENOrdering Facility: [facility] Address: [address] [place] [place] [address] Performed By: #### 5 7021-8 ####[facility]ATORYCLIA [id number] [address] [place] Neutrophils (Bld) [#/Vol] 6.46 10*3/uL Normal 1.45-7.50 [facility] Comment on above: Order Comment: Speci men Type: BLOOD SPECIMENOrdering Facility: [facility] Address: [address] [place] [address] Performed By: #### 5 7021-8 ####[facility]ORYCLIA [id number] [address] Neutrophils/100 WBC (Bld) 76.1 % Normal [facility] Comment on above: Order Comment: Speci men Type: BLOOD SPECIMENOrdering Facility: [facility] Address: [address] [place] [address] Performed By: #### 5 7021-8 ####[facility]ORYCLIA [id number] [address] Nucleated RBC (Bld) [#/Vol] 10*3/uL Normal <0.01 [facility] Comment on above: Order Comment: Speci men Type: BLOOD SPECIMENOrdering Facility: [facility] Address: [address] [place] [address] Performed By: #### 5 7021-8 ####[facility]ORYCLIA [id number] [address] Nucleated RBC/100 WBC (Bld) [Ratio] 0.0 /100 WBC Normal [facility] Comment on above: Order Comment: Speci men Type: BLOOD SPECIMENOrdering Facility: [facility] Address: [address] [place] [address] Performed By: #### 5 7021-8 ####[facility]ATORYCLIA [id number] [address] [place] Platelet mean volume (Bld) [Entitic vol] 9.5 fL Normal 9.0-12.7 [facility] Comment on above: Order Comment: Speci men Type: BLOOD SPECIMENOrdering Facility: [facility] Address: [address] [place] [address] Performed By: #### 5 7021-8 ####[facility]ATORYCLIA [id number] [address] [place] Platelets (Bld) [#/Vol] 247 10*3/uL Normal 150-400 [facility] Comment on above: Order Comment: Speci men Type: BLOOD SPECIMENOrdering Facility: [facility] Address: [address] [place] [address] Performed By: #### 5 7021-8 ####[facility]ATORYCLIA [id number] [place] [address] [place] RBC (Bld) [#/Vol] 3.10 10*6/uL Low 4.20-6.00 [facility] Comment on above: Order Comment: Speci men Type: BLOOD SPECIMENOrdering Facility: [facility] Address: [address] [place] [address] Performed By: #### 5 7021-8 ####[facility]ATORYCLIA [id number] [address] [place] WBC (Bld) [#/Vol] 8.50 10*3/uL Normal 3.70-11.00 [facility] Comment on above: Order Comment: Speci men Type: BLOOD SPECIMENOrdering Facility: [facility] Address: [address] [place] [address] Performed By: #### 5 7021-8 ####[facility]ATORYCLIA [id number] [place] [address] [place] CONSULTon 08-14-2021 CONSULT Normal [facility] NURSING PROGon 08-14-2021 NURSING PROG Normal [facility] CBC W Auto Differential pane l (Bld)on 08-13-2021 Basophils (Bld) [#/Vol] 10*3/uL Normal <0.11 [facility] Comment on above: Order Comment: Speci men Type: BLOOD SPECIMENOrdering Facility: [facility] Address: [address] [place] [address] Performed By: #### 5 7021-8 ####[facility]ATORYCLIA [id number] [address] [place] Basophils/100 WBC (Bld) 0.2 % Normal [facility] Comment on above: Order Comment: Speci men Type: BLOOD SPECIMENOrdering Facility: [facility] Address: [address] [address] Performed By: #### 5 7021-8 ####[facility]ORYCLIA [id number] [address] Differential cell count method Nom (Bld) Auto Normal [facility] Comment on above: Order Comment: Speci men Type: BLOOD SPECIMENOrdering Facility: [facility] Address: [address] [place] [address] Performed By: #### 5 7021-8 ####[facility]ORYCLIA [id number] [address] [place] Eosinophils (Bld) [#/Vol] 0.31 10*3/uL Normal <0.46 [facility] Comment on above: Order Comment: Speci men Type: BLOOD SPECIMENOrdering Facility: [facility] Address: [address] [place] [address] Performed By: #### 5 7021-8 ####[facility]ORYCLIA [id number] [address] Eosinophils/100 WBC (Bld) 3.7 % Normal [facility] Comment on above: Order Comment: Speci men Type: BLOOD SPECIMENOrdering Facility: [facility] Address: [address] [place] [address] Performed By: #### 5 7021-8 ####[facility]ATORYCLIA [id number] [address] [place] Erythrocyte distribution width (RBC) [Ratio] 16.6 % High 11.5-15.0 [facility] Comment on above: Order Comment: Speci men Type: BLOOD SPECIMENOrdering Facility: [facility] Address: [address] [place] [address] Performed By: #### 5 7021-8 ####[facility]ORYCLIA [id number] [address] [place] Hematocrit (Bld) [Volume fraction] 27.5 % Low 39.0-51.0 [facility] Comment on above: Order Comment: Speci men Type: BLOOD SPECIMENOrdering Facility: [facility] Address: [address] [place] [address] Performed By: #### 5 7021-8 ####[facility]ORATORYCLIA [id number] [address] [place] Hemoglobin (Bld) [Mass/Vol] 8.4 g/dL Low 13.0-17.0 [facility] Comment on above: Order Comment: Speci men Type: BLOOD SPECIMENOrdering Facility: [facility] Address: [address] [place] [address] Performed By: #### 5 7021-8 ####[facility] LABORATORYCLIA [id number] [address] IMMATURE GRAN % 0.5 % Normal [facility] Comment on above: Order Comment: Speci men Type: BLOOD SPECIMENOrdering Facility: [facility] Address: [address] [place] [address] Performed By: #### 5 7021-8 ####[facility]ATORYCLIA [id number] [address] IMMATURE GRAN ABS 0.04 k/uL Normal <0.10 [facility] Comment on above: Order Comment: Speci men Type: BLOOD SPECIMENOrdering Facility: [facility] Address: [address] [place] [address] Performed By: #### 5 7021-8 ####[facility]ORATORYCLIA [id number] [address] [place] Lymphocytes (Bld) [#/Vol] 1.55 10*3/uL Normal 1.00-4.00 [facility] Comment on above: Order Comment: Speci men Type: BLOOD SPECIMENOrdering Facility: [facility] Address: [address] [place] [address] Performed By: #### 5 7021-8 ####[facility]ATORYCLIA [id number] [address] Lymphocytes/100 WBC (Bld) 18.7 % Normal [facility] Comment on above: Order Comment: Speci men Type: BLOOD SPECIMENOrdering Facility: [facility] Address: [address] [place] [address] Performed By: #### 5 7021-8 ####[facility]ATORYCLIA [id number] [address] STATES OF [facility] MCH (RBC) [Entitic mass] 28.9 pg Normal 26.0-34.0 [facility] Comment on above: Order Comment: Speci men Type: BLOOD SPECIMENOrdering Facility: [facility] Address: [address] [place] [address] Performed By: #### 5 7021-8 ####[facility]ATORYCLIA [id number] [address] MCHC (RBC) [Mass/Vol] 30.5 g/dL Normal 30.5-36.0 [facility] Comment on above: Order Comment: Speci men Type: BLOOD SPECIMENOrdering Facility: [facility] Address: [address] [place] [address] Performed By: #### 5 7021-8 ####[facility]ATORYCLIA [id number] [address] MCV (RBC) [Entitic vol] 94.5 fL Normal 80.0-100.0 [facility] Comment on above: Order Comment: Speci men Type: BLOOD SPECIMENOrdering Facility: [facility] Address: [address] [place] [place] [address] Performed By: #### 5 7021-8 ####[facility]ATORYCLIA [id number] [address] Monocytes (Bld) [#/Vol] 0.47 10*3/uL Normal <0.87 [facility] Comment on above: Order Comment: Speci men Type: BLOOD SPECIMENOrdering Facility: [facility] Address: [address] [place] [address] Performed By: #### 5 7021-8 ####[facility]ORYCLIA [id number] [address] [place] Monocytes/100 WBC (Bld) 5.7 % Normal [facility] Comment on above: Order Comment: Speci men Type: BLOOD SPECIMENOrdering Facility: [facility] Address: [address] [place] [address] Performed By: #### 5 7021-8 ####[facility]ATORYCLIA [id number] [address] [place] Neutrophils (Bld) [#/Vol] 5.92 10*3/uL Normal 1.45-7.50 [facility] Comment on above: Order Comment: Speci men Type: BLOOD SPECIMENOrdering Facility: [facility] Address: [address] [place] [address] Performed By: #### 5 7021-8 ####[facility]ATORYCLIA [id number] [address] Neutrophils/100 WBC (Bld) 71.2 % Normal [facility] Comment on above: Order Comment: Speci men Type: BLOOD SPECIMENOrdering Facility: [facility] Address: [address] [place] [address] Performed By: #### 5 7021-8 ####[facility]ORYCLIA [id number] [address] [place] Nucleated RBC (Bld) [#/Vol] 10*3/uL Normal <0.01 [facility] Comment on above: Order Comment: Speci men Type: BLOOD SPECIMENOrdering Facility: [facility] Address: [address] [place] [address] Performed By: #### 5 7021-8 ####[facility]ORYCLIA [id number] [address] Nucleated RBC/100 WBC (Bld) [Ratio] 0.0 /100 WBC Normal [facility] Comment on above: Order Comment: Speci men Type: BLOOD SPECIMENOrdering Facility: [facility] Address: [address] [place], [place] [address] Performed By: #### 5 7021-8 ####[facility]ATORYCLIA [id number] [address] STATES [facility] Platelet mean volume (Bld) [Entitic vol] 9.9 fL Normal 9.0-12.7 [facility] Comment on above: Order Comment: Speci men Type: BLOOD SPECIMENOrdering Facility: [facility] Address: [address] [place] [address] Performed By: #### 5 7021-8 ####[facility]ATORYCLIA [id number] [address] [place] Platelets (Bld) [#/Vol] 203 10*3/uL Normal 150-400 [facility] Comment on above: Order Comment: Speci men Type: BLOOD SPECIMENOrdering Facility: [facility] Address: [address] [place] [address] Performed By: #### 5 7021-8 ####[facility]ATORYCLIA [id number] [place] [address] [place] RBC (Bld) [#/Vol] 2.91 10*6/uL Low 4.20-6.00 [facility] Comment on above: Order Comment: Speci men Type: BLOOD SPECIMENOrdering Facility: [facility] Address: [address] [place], [place] [address] Performed By: #### 5 7021-8 ####[facility]ATORYCLIA [id number] [address] [place] WBC (Bld) [#/Vol] 8.31 10*3/uL Normal 3.70-11.00 [facility] Comment on above: Order Comment: Speci men Type: BLOOD SPECIMENOrdering Facility: [facility] Address: [address] [place] [address] Performed By: #### 5 7021-8 ####[facility]ATORYCLIA [id number] [address] [place] aPTT PPPon 08-13-2021 aPTT Coag (PPP) [Time] 69.7 s High 23.0-32.4 [facility] Comment on above: Order Comment: Speci men Type: BLOOD SPECIMENOrdering Facility: [facility] Address: [address] [place] [address] Performed By: #### 1 4979-9 ####[facility]ATORYCLIA [id number] [address] STATES OF [facility] aPTT Coag (PPP) [Time] 70.6 s High 23.0-32.4 [facility] Comment on above: Order Comment: Speci men Type: BLOOD SPECIMENOrdering Facility: [facility] Address: [address] [place] [address] Performed By: #### 1 4979-9 ####[facility]ATORYCLIA [id number] [address] [place] ALLIED HEALTHon 08-12-2021 ALLIED HEALTH Normal [facility] ALLIED HEALTH Normal [facility] Basic metabolic 2000 panelon 08-12-2021 Anion gap [Moles/Vol] 7 mmol/L Low 9-18 [facility] Comment on above: Order Comment: Speci men Type: BLOOD SPECIMENOrdering Facility: [facility] Address: [address] [place] [address] Performed By: #### 2 4321-2, , 2776-05 ####[facility]ATORYCLIA [id number] [place] [address] [place] Calcium [Mass/Vol] 8.8 mg/dL Normal 8.5-10.2 [facility] Comment on above: Order Comment: Speci men Type: BLOOD SPECIMENOrdering Facility: [facility] Address: [address] [place] [address] Performed By: #### 2 4321-2, 91812-4, 2777-1 ####[facility]ATORYCLIA [id number] [address] STATES OF [facility] Chloride [Moles/Vol] 96 mmol/L Low 97-105 [facility] Comment on above: Order Comment: Speci men Type: BLOOD SPECIMENOrdering Facility: [facility] Address: [address] [place] [place] [address] Performed By: #### 2 4321-2, , 2776-05 ####[facility]ATORYCLIA [id number] [address] STATES OF [facility] CO2 [Moles/Vol] 32 mmol/L High 22-30 [facility] Comment on above: Order Comment: Speci men Type: BLOOD SPECIMENOrdering Facility: [facility] Address: [address] [place] [address] Performed By: #### 2 4321-2, , 2776-05 ####[facility]ATORYCLIA [id number] [address] Creatinine [Mass/Vol] 0.52 mg/dL Low 0.73-1.22 [facility] Comment on above: Order Comment: Speci men Type: BLOOD SPECIMENOrdering Facility: [facility] Address: [address] [place] [address] Performed By: #### 2 4321-2, , 2776-05 ####[facility]ATORYCLIA [id number] [address] ESTIMATED GLOMERULAR FILTRATION RATE 109 mL/min/1.73m??? Normal >=60 [facility] Comment on above: Order Comment: Speci men Type: BLOOD SPECIMENOrdering Facility: [facility] Address: [address] [place] [address] Result Comment: Luzmaria mated Glomerular Filtration Rate [...] Performed By: #### 2 4321-2, , 2776-05 ####[facility]ATORYCLIA [id number] [place] [address] [place] Glucose [Mass/Vol] 119 mg/dL High 74-99 [facility] Comment on above: Order Comment: Speci men Type: BLOOD SPECIMENOrdering Facility: [facility] Address: [address] [place] [address] Result Comment: The [employer] (ADA) provides guidance for cutoff [...] Standards of Medical Care in Diabetes 2016, [employer]. Diabetes Care. 2016.39(Suppl 1). Performed By: #### 2 4321-2, , 2776-05 ####[facility]ATORYCLIA [id number] [place] [address] [place] Potassium [Moles/Vol] 3.7 mmol/L Normal 3.7-5.1 [facility] Comment on above: Order Comment: Speci men Type: BLOOD SPECIMENOrdering Facility: [facility] Address: [address] Performed By: #### 2 4321-2, , 2776-05 ####[facility]ATORYCLIA [id number] [place] [id number] [place] Sodium [Moles/Vol] 135 mmol/L Low 136-144 [facility] Comment on above: Order Comment: Johni men Type: BLOOD SPECIMENOrdering Facility: [facility] Address: [address] [place] [address] Performed By: #### 2 4321-2, 34298-7, 2776- ####[facility]ATORYCLIA [id number] [place] [address] [place] [facility] Urea nitrogen [Mass/Vol] 20 mg/dL Normal 9-24 [facility] Comment on above: Order Comment: Speci men Type: BLOOD SPECIMENOrdering Facility: [facility] Address: [address] [place] [address] Performed By: #### 2 4321-2, , 2776-05 ####[facility]ATORYCLIA [id number] [address] [place] CASE MANAGEMon 08-12-2021 CASE MANAGEM Normal [facility] CBC W Auto Differential pane l (Bld)on 08-12-2021 Basophils (Bld) [#/Vol] 0.04 10*3/uL Normal <0.11 [facility] Comment on above: Order Comment: Speci men Type: BLOOD SPECIMENOrdering Facility: [facility] Address: [address] [place] [address] Performed By: #### 5 7021-8 ####[facility]ATORYCLIA [id number] [address] STATES [facility] Basophils/100 WBC (Bld) 0.5 % Normal [facility] Comment on above: Order Comment: Speci men Type: BLOOD SPECIMENOrdering Facility: [facility] Address: [address] [place] [address] Performed By: #### 5 7021-8 ####[facility]ATORYCLIA [id number] [address] [place] Differential cell count method Nom (Bld) Auto Normal [facility] Comment on above: Order Comment: Speci men Type: BLOOD SPECIMENOrdering Facility: [facility] Address: [address] [place] [address] Performed By: #### 5 7021-8 ####[facility]ORATORYCLIA [id number] [place] [address] [place] Eosinophils (Bld) [#/Vol] 0.19 10*3/uL Normal <0.46 [facility] Comment on above: Order Comment: Speci men Type: BLOOD SPECIMENOrdering Facility: [facility] Address: [address] [place] [address] Performed By: #### 5 7021-8 ####[facility]ATORYCLIA [id number] [address] Eosinophils/100 WBC (Bld) 2.3 % Normal [facility] Comment on above: Order Comment: Speci men Type: BLOOD SPECIMENOrdering Facility: [facility] Address: [address] [place] [address] Performed By: #### 5 7021-8 ####[facility]ATORYCLIA [id number] [address] Erythrocyte distribution width (RBC) [Ratio] 17.1 % High 11.5-15.0 [facility] Comment on above: Order Comment: Speci men Type: BLOOD SPECIMENOrdering Facility: [facility] Address: [address] [place] [address] Performed By: #### 5 7021-8 ####[facility]ATORYCLIA [id number] [address] Hematocrit (Bld) [Volume fraction] 25.3 % Low 39.0-51.0 [facility] Comment on above: Order Comment: Speci men Type: BLOOD SPECIMENOrdering Facility: [facility] Address: [address] [place] [address] Performed By: #### 5 7021-8 ####[facility]ATORYCLIA [id number] [address] [place] Hemoglobin (Bld) [Mass/Vol] 7.9 g/dL Low 13.0-17.0 [facility] Comment on above: Order Comment: Speci men Type: BLOOD SPECIMENOrdering Facility: [facility] Address: [address] [place] [address] Performed By: #### 5 7021-8 ####[facility] [facility]ORATORYCLIA [id number] [address] IMMATURE GRAN % 0.5 % Normal [facility] Comment on above: Order Comment: Speci men Type: BLOOD SPECIMENOrdering Facility: [facility] Address: [address] [place] [address] Performed By: #### 5 7021-8 ####[facility] [facility]ATORYCLIA [id number] [address] IMMATURE GRAN ABS 0.04 k/uL Normal <0.10 [facility] Comment on above: Order Comment: Speci men Type: BLOOD SPECIMENOrdering Facility: [facility] Address: [address] [place] [address] Performed By: #### 5 7021-8 ####[facility]ATORYCLIA [id number] [address] Lymphocytes (Bld) [#/Vol] 1.69 10*3/uL Normal 1.00-4.00 [facility] Comment on above: Order Comment: Speci men Type: BLOOD SPECIMENOrdering Facility: [facility] Address: [address] [place] [address] Performed By: #### 5 7021-8 ####[facility]ATORYCLIA [id number] [address] Lymphocytes/100 WBC (Bld) 20.1 % Normal [facility] Comment on above: Order Comment: Speci men Type: BLOOD SPECIMENOrdering Facility: [facility] Address: [address] [place] [address] Performed By: #### 5 7021-8 ####[facility]ORYCLIA [id number] [address] MCH (RBC) [Entitic mass] 28.5 pg Normal 26.0-34.0 [facility] Comment on above: Order Comment: Speci men Type: BLOOD SPECIMENOrdering Facility: [facility] Address: [address] [place] [address] Performed By: #### 5 7021-8 ####[facility]ATORYCLIA [id number] [address] [place] MCHC (RBC) [Mass/Vol] 31.2 g/dL Normal 30.5-36.0 [facility] Comment on above: Order Comment: Speci men Type: BLOOD SPECIMENOrdering Facility: [facility] Address: [address] [place] [address] Performed By: #### 5 7021-8 ####[facility]ATORYCLIA [id number] [address] STATES OF [facility] MCV (RBC) [Entitic vol] 91.3 fL Normal 80.0-100.0 [facility] Comment on above: Order Comment: Speci men Type: BLOOD SPECIMENOrdering Facility: [facility] Address: [address] [place] [address] Performed By: #### 5 7021-8 ####[facility]ATORYCLIA [id number] [address] [place] Monocytes (Bld) [#/Vol] 0.53 10*3/uL Normal <0.87 [facility] Comment on above: Order Comment: Speci men Type: BLOOD SPECIMENOrdering Facility: [facility] Address: [address] [place] [address] Performed By: #### 5 7021-8 ####[facility]ORYCLIA [id number] [address] Monocytes/100 WBC (Bld) 6.3 % Normal [facility] Comment on above: Order Comment: Speci men Type: BLOOD SPECIMENOrdering Facility: [facility] Address: [address] [place] [address] Performed By: #### 5 7021-8 ####[facility]ATORYCLIA [id number] [address] [place] Neutrophils (Bld) [#/Vol] 5.90 10*3/uL Normal 1.45-7.50 [facility] Comment on above: Order Comment: Speci men Type: BLOOD SPECIMENOrdering Facility: [facility] Address: [address] [place] [address] Performed By: #### 5 7021-8 ####[facility]ORYCLIA [id number] [address] Neutrophils/100 WBC (Bld) 70.3 % Normal [facility] Comment on above: Order Comment: Speci men Type: BLOOD SPECIMENOrdering Facility: [facility] Address: [address] [place] [address] Performed By: #### 5 7021-8 ####[facility]ATORYCLIA [id number] [address] [place] Nucleated RBC (Bld) [#/Vol] 10*3/uL Normal <0.01 [facility] Comment on above: Order Comment: Speci men Type: BLOOD SPECIMENOrdering Facility: [facility] Address: [address] [place] [address] Performed By: #### 5 7021-8 ####[facility]ORYCLIA [id number] [address] [place] Nucleated RBC/100 WBC (Bld) [Ratio] 0.0 /100 WBC Normal [facility] Comment on above: Order Comment: Speci men Type: BLOOD SPECIMENOrdering Facility: [facility] Address: [address] [place] [address] Performed By: #### 5 7021-8 ####[facility]ATORYCLIA [id number] [address] [place] Platelet mean volume (Bld) [Entitic vol] 9.8 fL Normal 9.0-12.7 [facility] Comment on above: Order Comment: Speci men Type: BLOOD SPECIMENOrdering Facility: [facility] Address: [address] [place] [address] Performed By: #### 5 7021-8 ####[facility]ATORYCLIA [id number] [address] STATES OF [facility] Platelets (Bld) [#/Vol] 164 10*3/uL Normal 150-400 [facility] Comment on above: Order Comment: Speci men Type: BLOOD SPECIMENOrdering Facility: [facility] Address: [address] [place] [address] Performed By: #### 5 7021-8 ####[facility]ATORYCLIA [id number] [place] [address] [place] RBC (Bld) [#/Vol] 2.77 10*6/uL Low 4.20-6.00 [facility] Comment on above: Order Comment: Speci men Type: BLOOD SPECIMENOrdering Facility: [facility] Address: [address] [place] [address] Performed By: #### 5 7021-8 ####[facility]ATORYCLIA [id number] [address] WBC (Bld) [#/Vol] 8.39 10*3/uL Normal 3.70-11.00 [facility] Comment on above: Order Comment: Speci men Type: BLOOD SPECIMENOrdering Facility: [facility] Address: [address] [place] [address] Performed By: #### 5 7021-8 ####[facility]ORATORYCLIA [id number] [address] OF [facility] CT BRAIN WO IVCONon 08-13-19 CT BRAIN WO IVCON Normal [facility] CT BRAIN WO IVCON Normal [facility] Magnesium SerPl-mCncon 08-12 Magnesium [Mass/Vol] 2.0 mg/dL Normal 1.7-2.3 [facility] Comment on above: Order Comment: Speci men Type: BLOOD SPECIMENOrdering Facility: [facility] Address: [address] [place] [address] Performed By: #### 2 4321-2, 93636-1, 2777-1 ####[facility]ATORYCLIA [id number] [address] Phosphate SerPl-mCncon 08-12 Phosphate [Mass/Vol] 2.9 mg/dL Normal 2.7-4.8 [facility] Comment on above: Order Comment: Speci men Type: BLOOD SPECIMENOrdering Facility: [facility] Address: [address] [place] [address] Performed By: #### 2 4321-2, 44356-5, 2777-1 ####[facility]ATORYCLIA [id number] [address] THERAPY NTon 08-12-2021 THERAPY NT Normal [facility] THERAPY NT Normal [facility] aPTT PPPon 08-12-2021 aPTT Coag (PPP) [Time] 94.2 s High 23.0-32.4 [facility] Comment on above: Order Comment: Speci men Type: BLOOD SPECIMENOrdering Facility: [facility] Address: [address] [place] [address] Performed By: #### 1 4979-9 ####[facility]ATORYCLIA [id number] [address] aPTT Coag (PPP) [Time] 84.4 s High 23.0-32.4 [facility] Comment on above: Order Comment: Speci men Type: BLOOD SPECIMENOrdering Facility: [facility] Address: [address] [place] [address] Performed By: #### 1 4979-9 ####[facility]ATORYCLIA [id number] [address] aPTT Coag (PPP) [Time] 71.3 s High 23.0-32.4 [facility] Comment on above: Order Comment: Speci men Type: BLOOD SPECIMENOrdering Facility: [facility] Address: [address] [place] [address] Performed By: #### 1 4979-9 ####[facility]ATORYCLIA [id number] [place] [address] [place] ALLIED HEALTHon 08-11-2021 ALLIED HEALTH Normal [facility] CBC W Auto Differential pane l (Bld)on 08-11-2021 Basophils (Bld) [#/Vol] 10*3/uL Normal <0.11 [facility] Comment on above: Order Comment: Speci men Type: BLOOD SPECIMENOrdering Facility: [facility] Address: [address] [place] [address] Performed By: #### 5 7021-8 ####[facility]ATORYCLIA [id number] [address] Basophils/100 WBC (Bld) 0.2 % Normal [facility] Comment on above: Order Comment: Speci men Type: BLOOD SPECIMENOrdering Facility: [facility] Address: [address] [place] [address] Performed By: #### 5 7021-8 ####[facility]ATORYCLIA [id number] [address] Differential cell count method Nom (Bld) Auto Normal [facility] Comment on above: Order Comment: Speci men Type: BLOOD SPECIMENOrdering Facility: [facility] Address: [address] [place] [address] Performed By: #### 5 7021-8 ####[facility]ORATORYCLIA [id number] [place] [address] [place] Eosinophils (Bld) [#/Vol] 0.16 10*3/uL Normal <0.46 [facility] Comment on above: Order Comment: Speci men Type: BLOOD SPECIMENOrdering Facility: [facility] Address: [address] [place] [address] Performed By: #### 5 7021-8 ####[facility] LABORATORYCLIA [id number] [address] [place] Eosinophils/100 WBC (Bld) 1.8 % Normal [facility] Comment on above: Order Comment: Speci men Type: BLOOD SPECIMENOrdering Facility: [facility] Address: [facility] [place] [address] Performed By: #### 5 7021-8 ####[facility] LABORATORYCLIA [id number] [address] Erythrocyte distribution width (RBC) [Ratio] 17.3 % High 11.5-15.0 [facility] [facility] Comment on above: Order Comment: Speci men Type: BLOOD SPECIMENOrdering Facility: [facility] Address: [address] [place] [address] Performed By: #### 5 7021-8 ####[facility]ATORYCLIA [id number] [address] Hematocrit (Bld) [Volume fraction] 26.6 % Low 39.0-51.0 [facility] Comment on above: Order Comment: Speci men Type: BLOOD SPECIMENOrdering Facility: [facility] Address: [address] [place] [address] Performed By: #### 5 7021-8 ####[facility]ATORYCLIA [id number] [address] [place] Hemoglobin (Bld) [Mass/Vol] 8.2 g/dL Low 13.0-17.0 [facility] Comment on above: Order Comment: Speci men Type: BLOOD SPECIMENOrdering Facility: [facility] Address: [address] [place] [address] Performed By: #### 5 7021-8 ####[facility]ATORYCLIA [id number] [address] IMMATURE GRAN % 0.6 % Normal [facility] Comment on above: Order Comment: Speci men Type: BLOOD SPECIMENOrdering Facility: [facility] Address: [address] [place] [address] Performed By: #### 5 7021-8 ####[facility]ATORYCLIA [id number] [address] IMMATURE GRAN ABS 0.05 k/uL Normal <0.10 [facility] Comment on above: Order Comment: Speci men Type: BLOOD SPECIMENOrdering Facility: [facility] Address: [address] [place] [address] Performed By: #### 5 7021-8 ####[facility]ATORYCLIA [id number] [address] [place] Lymphocytes (Bld) [#/Vol] 1.40 10*3/uL Normal 1.00-4.00 [facility] Comment on above: Order Comment: Speci men Type: BLOOD SPECIMENOrdering Facility: [facility] Address: [address] [place] [address] Performed By: #### 5 7021-8 ####[facility]ATORYCLIA [id number] [address] Lymphocytes/100 WBC (Bld) 15.8 % Normal [facility] Comment on above: Order Comment: Speci men Type: BLOOD SPECIMENOrdering Facility: [facility] Address: [address] [place] [address] Performed By: #### 5 7021-8 ####[facility]ATORYCLIA [id number] [address] [place] MCH (RBC) [Entitic mass] 28.4 pg Normal 26.0-34.0 [facility] Comment on above: Order Comment: Speci men Type: BLOOD SPECIMENOrdering Facility: [facility] Address: [address] [place] [address] Performed By: #### 5 7021-8 ####[facility]ORYCLIA [id number] [address] [place] MCHC (RBC) [Mass/Vol] 30.8 g/dL Normal 30.5-36.0 [facility] Comment on above: Order Comment: Speci men Type: BLOOD SPECIMENOrdering Facility: [facility] Address: [address] [place] [address] Performed By: #### 5 7021-8 ####[facility]ATORYCLIA [id number] [place] [address] [place] MCV (RBC) [Entitic vol] 92.0 fL Normal 80.0-100.0 [facility] Comment on above: Order Comment: Speci men Type: BLOOD SPECIMENOrdering Facility: [facility] Address: [address] [place] [place] [address] Performed By: #### 5 7021-8 ####[facility]ATORYCLIA [id number] [place] [address] [place] Monocytes (Bld) [#/Vol] 0.61 10*3/uL Normal <0.87 [facility] Comment on above: Order Comment: Speci men Type: BLOOD SPECIMENOrdering Facility: [facility] Address: [address] [place] [address] Performed By: #### 5 7021-8 ####[facility]ATORYCLIA [id number] [address] [place] Monocytes/100 WBC (Bld) 6.9 % Normal [facility] Comment on above: Order Comment: Speci men Type: BLOOD SPECIMENOrdering Facility: [facility] Address: [address] [place] [address] Performed By: #### 5 7021-8 ####[facility]ATORYCLIA [id number] [place] [address] [place] Neutrophils (Bld) [#/Vol] 6.62 10*3/uL Normal 1.45-7.50 [facility] Comment on above: Order Comment: Speci men Type: BLOOD SPECIMENOrdering Facility: [facility] Address: [address] [place] [address] Performed By: #### 5 7021-8 ####[facility]ATORYCLIA [id number] [address] [place] Neutrophils/100 WBC (Bld) 74.7 % Normal [facility] Comment on above: Order Comment: Speci men Type: BLOOD SPECIMENOrdering Facility: [facility] Address: [address] [place] [address] Performed By: #### 5 7021-8 ####[facility]ATORYCLIA [id number] [address] Nucleated RBC (Bld) [#/Vol] 10*3/uL Normal <0.01 [facility] Comment on above: Order Comment: Speci men Type: BLOOD SPECIMENOrdering Facility: [facility] Address: [address] [place] [address] Performed By: #### 5 7021-8 ####[facility]ATORYCLIA [id number] [address] OF [facility] Nucleated RBC/100 WBC (Bld) [Ratio] 0.0 /100 WBC Normal [facility] Comment on above: Order Comment: Speci men Type: BLOOD SPECIMENOrdering Facility: [facility] Address: [address] [place] [address] Performed By: #### 5 7021-8 ####[facility]ATORYCLIA [id number] [address] OF [facility] Platelet mean volume (Bld) [Entitic vol] 9.8 fL Normal 9.0-12.7 [facility] Comment on above: Order Comment: Speci men Type: BLOOD SPECIMENOrdering Facility: [facility] Address: [address] [place] [address] Performed By: #### 5 7021-8 ####[facility]ORYCLIA [id number] [address] [place] Platelets (Bld) [#/Vol] 157 10*3/uL Normal 150-400 [facility] Comment on above: Order Comment: Speci men Type: BLOOD SPECIMENOrdering Facility: [facility] Address: [address] [place] [address] Performed By: #### 5 7021-8 ####[facility]ATORYCLIA [id number] [address] [place] RBC (Bld) [#/Vol] 2.89 10*6/uL Low 4.20-6.00 [facility] Comment on above: Order Comment: Speci men Type: BLOOD SPECIMENOrdering Facility: [facility] Address: [address] [place] [address] Performed By: #### 5 7021-8 ####[facility]ATORYCLIA [id number] [address] [place] WBC (Bld) [#/Vol] 8.86 10*3/uL Normal 3.70-11.00 [facility] Comment on above: Order Comment: Speci men Type: BLOOD SPECIMENOrdering Facility: [facility] Address: [address] [place] [address] Performed By: #### 5 7021-8 ####[facility]ATORYCLIA [id number] [address] OF [facility] CBC panel Auto (Bld)on 08-11 Erythrocyte distribution width (RBC) [Ratio] 17.2 % High 11.5-15.0 [facility] Comment on above: Order Comment: Speci men Type: BLOOD SPECIMENOrdering Facility: [facility] Address: [address] [place] [address] Performed By: #### 5 8410-2 ####[facility]ATORYCLIA [id number] [address] STATES OF [facility] Hematocrit (Bld) [Volume fraction] 27.0 % Low 39.0-51.0 [facility] Comment on above: Order Comment: Speci men Type: BLOOD SPECIMENOrdering Facility: [facility] Address: [address] [place] [address] Performed By: #### 5 8410-2 ####[facility]ATORYCLIA [id number] [address] Hemoglobin (Bld) [Mass/Vol] 8.3 g/dL Low 13.0-17.0 [facility] Comment on above: Order Comment: Speci men Type: BLOOD SPECIMENOrdering Facility: [facility] Address: [address] [place], [place] [address] Performed By: #### 5 8410-2 ####[facility]ATORYCLIA [id number] [address] MCH (RBC) [Entitic mass] 28.7 pg Normal 26.0-34.0 [facility] Comment on above: Order Comment: Speci men Type: BLOOD SPECIMENOrdering Facility: [facility] Address: [address] [place] [address] Performed By: #### 5 8410-2 ####[facility]ATORYCLIA [id number] [address] MCHC (RBC) [Mass/Vol] 30.7 g/dL Normal 30.5-36.0 [facility] Comment on above: Order Comment: Speci men Type: BLOOD SPECIMENOrdering Facility: [facility] Address: [address] [place] [address] Performed By: #### 5 8410-2 ####[facility]ATORYCLIA [id number] [address] MCV (RBC) [Entitic vol] 93.4 fL Normal 80.0-100.0 [facility] Comment on above: Order Comment: Speci men Type: BLOOD SPECIMENOrdering Facility: [facility] Address: [address] [place] [address] Performed By: #### 5 8410-2 ####[facility]ATORYCLIA [id number] [address] Nucleated RBC (Bld) [#/Vol] 10*3/uL Normal <0.01 [facility] Comment on above: Order Comment: Speci men Type: BLOOD SPECIMENOrdering Facility: [facility] Address: [address] [place] [address] Performed By: #### 5 8410-2 ####[facility]ATORYCLIA [id number] [address] Platelet mean volume (Bld) [Entitic vol] 9.8 fL Normal 9.0-12.7 [facility] Comment on above: Order Comment: Speci men Type: BLOOD SPECIMENOrdering Facility: [facility] Address: [address] [place] [address] Performed By: #### 5 8410-2 ####[facility]ATORYCLIA [id number] [address] OF [facility] Platelets (Bld) [#/Vol] 169 10*3/uL Normal 150-400 [facility] Comment on above: Order Comment: Speci men Type: BLOOD SPECIMENOrdering Facility: [facility] Address: [address] [place] [address] Performed By: #### 5 8410-2 ####[facility]ATORYCLIA [id number] [address] STATES OF [facility] RBC (Bld) [#/Vol] 2.89 10*6/uL Low 4.20-6.00 [facility] Comment on above: Order Comment: Speci men Type: BLOOD SPECIMENOrdering Facility: [facility] Address: [address] [place] [address] Performed By: #### 5 8410-2 ####[facility]ORYCLIA [id number] [address] WBC (Bld) [#/Vol] 9.03 10*3/uL Normal 3.70-11.00 [facility] Comment on above: Order Comment: Speci men Type: BLOOD SPECIMENOrdering Facility: [facility] Address: [address] [place] [address] Performed By: #### 5 8410-2 ####[facility]ATORYCLIA [id number] [address] BRAIN WO IVCONon 08-12-19 CT BRAIN WO IVCON Normal [facility] PT panel Coag (PPP)on 2021 INR Coag (PPP) [Relative time] 1.0 {INR} Normal 0.9-1.3 [facility] Comment on above: Order Comment: Speci men Type: BLOOD SPECIMENOrdering Facility: [facility] Address: [address] [place] [address] Result Comment: Yris min K Antagonist (VKA) Therapeutic Range: INR 2 to 3 (Target INR of 2.5)Note: For patients treated with VKA drugs, such as warfarin, the [employer] 2012 Guideline recommends [...] 70: 252-289 Performed By: #### 1 4979-9, 80411-8 ####[facility]ENTERCLIA [id number] [address] [place] PT Coag (PPP) [Time] 11.4 s Normal 9.7-13.0 [facility] Comment on above: Order Comment: Shira feldman Type: BLOOD SPECIMENOrdering Facility: [facility] Address: [address] [place] [address] Performed By: #### 1 4979-9, 29533-2 ####[facility]ATORYCLIA [id number] [address] [place] THERAPY NTon 08-11-2021 THERAPY NT Normal [facility] US DVT LOWER BILon 2 US DVT LOWER RAINER Normal [facility] US DVT UPPER BILon 2 US DVT UPPER RAINER Normal [facility] aPTT PPPon 08-11-2021 aPTT Coag (PPP) [Time] 26.9 s Normal 23.0-32.4 [facility] Comment on above: Order Comment: Speci men Type: BLOOD SPECIMENOrdering Facility: [facility] Address: [address] [place] [address] Performed By: #### 1 4979-9, 32765-5 ####[facility]ATORYCLIA [id number] [place] [address] [place] Basic metabolic 2000 panelon 08-10-2021 Anion gap [Moles/Vol] 11 mmol/L Normal 9-18 [facility] Comment on above: Order Comment: Speci men Type: BLOOD SPECIMENOrdering Facility: [facility] Address: [address] [place] [address] Performed By: #### 2 4321-2 ####[facility]ATORYCLIA [id number] [place] [address] [place] Calcium [Mass/Vol] 8.7 mg/dL Normal 8.5-10.2 [facility] Comment on above: Order Comment: Speci men Type: BLOOD SPECIMENOrdering Facility: [facility] Address: [address] [place] [address] Performed By: #### 2 4321-2 ####[facility]ATORYCLIA [id number] [place] [address] [place] Chloride [Moles/Vol] 98 mmol/L Normal 97-105 [facility] Comment on above: Order Comment: Speci men Type: BLOOD SPECIMENOrdering Facility: [facility] Address: [address] [place] [address] Performed By: #### 2 4321-2 ####[facility]ATORYCLIA [id number] [place] [address] [place] CO2 [Moles/Vol] 28 mmol/L Normal 22-30 [facility] Comment on above: Order Comment: Speci men Type: BLOOD SPECIMENOrdering Facility: [facility] Address: [address] [place] [address] Performed By: #### 2 4321-2 ####[facility]ATORYCLIA [id number] [address] [place] Creatinine [Mass/Vol] 0.59 mg/dL Low 0.73-1.22 [facility] Comment on above: Order Comment: Shira feldman Type: BLOOD SPECIMENOrdering Facility: [facility] Address: [address] [address] Performed By: #### 2 4321-2 ####[facility]ORATORYCLIA [id number] [address] ESTIMATED GLOMERULAR FILTRATION RATE 105 mL/min/1.73m??? Normal >=60 [facility] Comment on above: Order Comment: Shira feldman Type: BLOOD SPECIMENOrdering Facility: [facility] Address: [address] [place] [place] [address] Result Comment: Luzmaria mated Glomerular Filtration Rate [...] actual GFR. Performed By: #### 2 4321-2 ####[facility]ATORYCLIA [id number] [address] [place] Glucose [Mass/Vol] 118 mg/dL High 74-99 [facility] Comment on above: Order Comment: Shira feldman Type: BLOOD SPECIMENOrdering Facility: [facility] Address: [address] [place] [place] [address] Result Comment: The [employer] (ADA) provides guidance for cutoff [...] Standards of Medical Care in Diabetes 2016, [employer]. Diabetes Care. 2016.39(Suppl 1). Performed By: #### 2 4321-2 ####[facility]ORATORYCLIA [id number] [place] [address] [place] Potassium [Moles/Vol] 3.7 mmol/L Normal 3.7-5.1 [facility] Comment on above: Order Comment: Speci men Type: BLOOD SPECIMENOrdering Facility: [facility] Address: [address] [place] [address] Performed By: #### 2 4321-2 ####[facility]ATORYCLIA [id number] [address] [place] Sodium [Moles/Vol] 137 mmol/L Normal 136-144 [facility] Comment on above: Order Comment: Speci men Type: BLOOD SPECIMENOrdering Facility: [facility] Address: [address] [place] [address] Performed By: #### 2 4321-2 ####[facility]ATORYCLIA [id number] [address] [place] Urea nitrogen [Mass/Vol] 23 mg/dL Normal 9-24 [facility] Comment on above: Order Comment: Speci men Type: BLOOD SPECIMENOrdering Facility: [facility] Address: [address] [place] [address] Performed By: #### 2 4321-2 ####[facility]ATORYCLIA [id number] [address] [place] Anion gap [Moles/Vol] 17 mmol/L Normal 9-18 [facility] Comment on above: Order Comment: Speci men Type: BLOOD SPECIMENOrdering Facility: [facility] Address: [address] [place] [address] Performed By: #### 1 9123-9, 2777-1, 76054-3 ####[facility]ATORYCLIA [id number] [place] [address] [place] Calcium [Mass/Vol] 7.7 mg/dL Low 8.5-10.2 [facility] Comment on above: Order Comment: Speci men Type: BLOOD SPECIMENOrdering Facility: [facility] Address: [address] [place] [address] Performed By: #### 1 9123-9, 27711-04, 54694-8 ####[facility]ATORYCLIA [id number] [place] [address] [place] Chloride [Moles/Vol] 86 mmol/L Low 97-105 [facility] Comment on above: Order Comment: Speci men Type: BLOOD SPECIMENOrdering Facility: [facility] Address: [address] [place] [address] Performed By: #### 1 9123-9, 2776-05, ####[facility]ATORYCLIA [id number] [place] [address] [place] CO2 [Moles/Vol] 24 mmol/L Normal 22-30 [facility] Comment on above: Order Comment: Speci men Type: BLOOD SPECIMENOrdering Facility: [facility] Address: [address] [place] [address] Performed By: #### 1 9123-9, 2776-05, ####[facility]ATORYCLIA [id number] [place] [address] [place] Creatinine [Mass/Vol] 0.53 mg/dL Low 0.73-1.22 [facility] Comment on above: Order Comment: Speci men Type: BLOOD SPECIMENOrdering Facility: [facility] Address: [address] [place] [address] Performed By: #### 1 9123-9, 2776-05, 49922-7 ####[facility]ATORYCLIA [id number] [address] ESTIMATED GLOMERULAR FILTRATION RATE 108 mL/min/1.73m??? Normal >=60 [facility] Comment on above: Order Comment: Speci men Type: BLOOD SPECIMENOrdering Facility: [facility] Address: [address] [id number] Result Comment: Luzmaria mated Glomerular Filtration Rate [...] GFR. Performed By: #### 1 9123-9, 2777-, 63511-0 ####[facility]ENTERCLIA [id number] [place] [address] [place] Glucose [Mass/Vol] 455 mg/dL High 74-99 [facility] Comment on above: Order Comment: Speci men Type: BLOOD SPECIMENOrdering Facility: [facility] Address: [address] [place] [address] Result Comment: The [employer] (ADA) provides guidance for cutoff [...] Standards of Medical Care in Diabetes 2016, [employer]. Diabetes Care. 2016.39(Suppl 1). Performed By: #### 1 9123-9, 2777-, 19778-9 ####[facility]ORATORYCLIA [id number] [place] [id number] [place] Potassium [Moles/Vol] 3.4 mmol/L Low 3.7-5.1 [facility] Comment on above: Order Comment: Speccara men Type: BLOOD SPECIMENOrdering Facility: [facility] Address: [address] [phone] Performed By: #### 1 9123-9, 2777-, 89171-6 ####[facility]ATORYCLIA [id number] [place] [address] [place] Sodium [Moles/Vol] 127 mmol/L Low 136-144 [facility] Comment on above: Order Comment: Speci men Type: BLOOD SPECIMENOrdering Facility: [facility] Address: [address] [place] [address] Performed By: #### 1 9123-9, 2777, 39001-3 ####[facility]ATORYCLIA [id number] [place] [address] [place] Urea nitrogen [Mass/Vol] 21 mg/dL Normal 9-24 [facility] Comment on above: Order Comment: Speci men Type: BLOOD SPECIMENOrdering Facility: [facility] Address: [address] [place] [address] Performed By: #### 1 9123-9, 2777, 22860-4 ####[facility]ORATORYCLIA [id number] [address] [place] CASE MANAGEMon 08-10-2021 CASE MANAGEM Normal [facility] CBC W Auto Differential pane l (Bld)on 08-10-2021 Basophils (Bld) [#/Vol] 0.04 10*3/uL Normal <0.11 [facility] Comment on above: Order Comment: Speci men Type: BLOOD SPECIMENOrdering Facility: [facility] Address: [address] [place] [address] Performed By: #### 5 7021-8 ####[facility]ORATORYCLIA [id number] [address] STATES [facility] Basophils/100 WBC (Bld) 0.4 % Normal [facility] Comment on above: Order Comment: Speci men Type: BLOOD SPECIMENOrdering Facility: [facility] Address: [address] [place] [address] Performed By: #### 5 7021-8 ####[facility]ORATORYCLIA [id number] [address] Differential cell count method Nom (Bld) Auto Normal [facility] Comment on above: Order Comment: Speci men Type: BLOOD SPECIMENOrdering Facility: [facility] Address: [address] [place] [address] Performed By: #### 5 7021-8 ####[facility]ATORYCLIA [id number] [address] [place] Eosinophils (Bld) [#/Vol] 0.11 10*3/uL Normal <0.46 [facility] Comment on above: Order Comment: Speci men Type: BLOOD SPECIMENOrdering Facility: [facility] Address: [address] [place] [address] Performed By: #### 5 7021-8 ####[facility]ATORYCLIA [id number] [address] Eosinophils/100 WBC (Bld) 1.1 % Normal [facility] Comment on above: Order Comment: Speci men Type: BLOOD SPECIMENOrdering Facility: [facility] Address: [address] [place] [address] Performed By: #### 5 7021-8 ####[facility]ATORYCLIA [id number] [address] [place] Erythrocyte distribution width (RBC) [Ratio] 17.2 % High 11.5-15.0 [facility] Comment on above: Order Comment: Speci men Type: BLOOD SPECIMENOrdering Facility: [facility] Address: [address] [place] [address] Performed By: #### 5 7021-8 ####[facility]ATORYCLIA [id number] [address] Hematocrit (Bld) [Volume fraction] 25.5 % Low 39.0-51.0 [facility] Comment on above: Order Comment: Speci men Type: BLOOD SPECIMENOrdering Facility: [facility] Address: [address] [place] [address] Performed By: #### 5 7021-8 ####[facility]ORATORYCLIA [id number] [address] STATES OF [facility] Hemoglobin (Bld) [Mass/Vol] 7.9 g/dL Low 13.0-17.0 [facility] Comment on above: Order Comment: Speci men Type: BLOOD SPECIMENOrdering Facility: [facility] Address: [address] [place] [address] Performed By: #### 5 7021-8 ####[facility] LABORATORYCLIA [id number] [address] IMMATURE GRAN % 0.4 % Normal [facility] Comment on above: Order Comment: Speci men Type: BLOOD SPECIMENOrdering Facility: [facility] Address: [address] [place] [address] Performed By: #### 5 7021-8 ####[facility] LABORATORYCLIA [id number] [address] IMMATURE GRAN ABS 0.04 k/uL Normal <0.10 [facility] Comment on above: Order Comment: Speci men Type: BLOOD SPECIMENOrdering Facility: [facility] Address: [address] [place] [address] Performed By: #### 5 7021-8 ####[facility]ORATORYCLIA [id number] [address] [place] Lymphocytes (Bld) [#/Vol] 1.66 10*3/uL Normal 1.00-4.00 [facility] Comment on above: Order Comment: Speci men Type: BLOOD SPECIMENOrdering Facility: [facility] Address: [address] [place] [address] Performed By: #### 5 7021-8 ####[facility] LABORATORYCLIA [id number] [address] Lymphocytes/100 WBC (Bld) 16.2 % Normal [facility] Comment on above: Order Comment: Speci men Type: BLOOD SPECIMENOrdering Facility: [facility] Address: [address] [place] [address] Performed By: #### 5 7021-8 ####[facility]ORATORYCLIA [id number] [address] MCH (RBC) [Entitic mass] 28.5 pg Normal 26.0-34.0 [facility] Comment on above: Order Comment: Speci men Type: BLOOD SPECIMENOrdering Facility: [facility] Address: [address] [place] [address] Performed By: #### 5 7021-8 ####[facility]ORATORYCLIA [id number] [address] STATES OF [facility] MCHC (RBC) [Mass/Vol] 31.0 g/dL Normal 30.5-36.0 [facility] Comment on above: Order Comment: Speci men Type: BLOOD SPECIMENOrdering Facility: [facility] Address: [address] [place] [address] Performed By: #### 5 7021-8 ####[facility]ORATORYCLIA [id number] [address] STATES OF [facility] MCV (RBC) [Entitic vol] 92.1 fL Normal 80.0-100.0 [facility] Comment on above: Order Comment: Speci men Type: BLOOD SPECIMENOrdering Facility: [facility] Address: [address] [place] [address] Performed By: #### 5 7021-8 ####[facility]ORATORYCLIA [id number] [address] Monocytes (Bld) [#/Vol] 0.51 10*3/uL Normal <0.87 [facility] Comment on above: Order Comment: Speci men Type: BLOOD SPECIMENOrdering Facility: [facility] Address: [address] [place] [address] Performed By: #### 5 7021-8 ####[facility]ORATORYCLIA [id number] [address] Monocytes/100 WBC (Bld) 5.0 % Normal [facility] Comment on above: Order Comment: Speci men Type: BLOOD SPECIMENOrdering Facility: [facility] Address: [facility] [place] [address] Performed By: #### 5 7021-8 ####[facility]ATORYCLIA [id number] [address] [place] Neutrophils (Bld) [#/Vol] 7.91 10*3/uL High 1.45-7.50 [facility] Comment on above: Order Comment: Speci men Type: BLOOD SPECIMENOrdering Facility: [facility] Address: [address] [place] [address] Performed By: #### 5 7021-8 ####[facility]ORATORYCLIA [id number] [address] [place] Neutrophils/100 WBC (Bld) 76.9 % Normal [facility] Comment on above: Order Comment: Speci men Type: BLOOD SPECIMENOrdering Facility: [facility] Address: [address] [place] [address] Performed By: #### 5 7021-8 ####[facility]ORATORYCLIA [id number] [place] [address] [place] Nucleated RBC (Bld) [#/Vol] 10*3/uL Normal <0.01 [facility] Comment on above: Order Comment: Speci men Type: BLOOD SPECIMENOrdering Facility: [facility] Address: [address] [place] [address] Performed By: #### 5 7021-8 ####[facility]ORATORYCLIA [id number] [address] [place] Nucleated RBC/100 WBC (Bld) [Ratio] 0.0 /100 WBC Normal [facility] Comment on above: Order Comment: Speci men Type: BLOOD SPECIMENOrdering Facility: [facility] Address: [address] [place] [address] Performed By: #### 5 7021-8 ####[facility]ATORYCLIA [id number] [address] [place] Platelet mean volume (Bld) [Entitic vol] 10.3 fL Normal 9.0-12.7 [facility] Comment on above: Order Comment: Speci men Type: BLOOD SPECIMENOrdering Facility: [facility] Address: [address] [place] [address] Performed By: #### 5 7021-8 ####[facility]ORATORYCLIA [id number] [address] [place] Platelets (Bld) [#/Vol] 152 10*3/uL Normal 150-400 [facility] Comment on above: Order Comment: Speci men Type: BLOOD SPECIMENOrdering Facility: [facility] Address: [address] [place] [address] Performed By: #### 5 7021-8 ####[facility] LABORATORYCLIA [id number] [place] [address] [place] RBC (Bld) [#/Vol] 2.77 10*6/uL Low 4.20-6.00 [facility] Comment on above: Order Comment: Speci men Type: BLOOD SPECIMENOrdering Facility: [facility] Address: [address] [place] [address] Performed By: #### 5 7021-8 ####[facility]ATORYCLIA [id number] [place] [address] [place] WBC (Bld) [#/Vol] 10.27 10*3/uL Normal 3.70-11.00 [facility] Comment on above: Order Comment: Speci men Type: BLOOD SPECIMENOrdering Facility: [facility] Address: [address] [place] [address] Performed By: #### 5 7021-8 ####[facility]ORATORYCLIA [id number] [address] [place] Magnesium SerPl-mCncon 08-10 Magnesium [Mass/Vol] 1.8 mg/dL Normal 1.7-2.3 [facility] Comment on above: Order Comment: Speci men Type: BLOOD SPECIMENOrdering Facility: [facility] Address: [address] [place] [address] Performed By: #### 1 9123-9, 2777-1, 75673-5 ####[facility]ORATORYCLIA [id number] [address] OF [facility] NURSING PROGon 08-10-2021 NURSING PROG Normal [facility] NURSING PROG Normal [facility] NUTRITIONon 08-10-2021 NUTRITION Normal [facility] Phosphate SerPl-mCncon 08-10 Phosphate [Mass/Vol] 3.7 mg/dL Normal 2.7-4.8 [facility] Comment on above: Order Comment: Speci men Type: BLOOD SPECIMENOrdering Facility: [facility] Address: [address] [place] [address] Performed By: #### 1 9123-9, 27711-04, ####[facility]ORATORYCLIA [id number] [address] [place] ALLIED HEALTHon 08-09-2021 ALLIED HEALTH Normal [facility] ANES POSTPROC EVALon 022 ANES POSTPROC EVAL Normal [facility] ANES PRE-OPon 08-09-2021 ANES PRE-OP Normal [facility] BRIEF OP NOTon 08-09-2021 BRIEF OP NOT Normal [facility] Basic metabolic 2000 panelon 08-09-2021 Anion gap [Moles/Vol] 8 mmol/L Low 9-18 [facility] Comment on above: Order Comment: Speci men Type: BLOOD SPECIMENOrdering Facility: [facility] Address: [address] [place] [address] Performed By: #### 2 4321-2, 63169-8, 27711-04 ####[facility]ATORYCLIA [id number] [place] [address] [place] Calcium [Mass/Vol] 9.2 mg/dL Normal 8.5-10.2 [facility] Comment on above: Order Comment: Speci men Type: BLOOD SPECIMENOrdering Facility: [facility] Address: [address] [place] [address] Performed By: #### 2 4321-2, , 2776-05 ####[facility]ORATORYCLIA [id number] [place] [address] [place] Chloride [Moles/Vol] 97 mmol/L Normal 97-105 [facility] Comment on above: Order Comment: Speci men Type: BLOOD SPECIMENOrdering Facility: [facility] Address: [address] [place] [address] Performed By: #### 2 4321-2, , 2776-05 ####[facility]ATORYCLIA [id number] [address] [place] CO2 [Moles/Vol] 30 mmol/L Normal 22-30 [facility] Comment on above: Order Comment: Speci men Type: BLOOD SPECIMENOrdering Facility: [facility] Address: [address] [place] [address] Performed By: #### 2 4321-2, , 2776-05 ####[facility]ORATORYCLIA [id number] [address] STATES OF [facility] Creatinine [Mass/Vol] 0.51 mg/dL Low 0.73-1.22 [facility] Comment on above: Order Comment: Speci men Type: BLOOD SPECIMENOrdering Facility: [facility] Address: [address] [place] [place] [address] Performed By: #### 2 4321-2, , 2776-05 ####[facility]ATORYCLIA [id number] [address] ESTIMATED GLOMERULAR FILTRATION RATE 110 mL/min/1.73m??? Normal >=60 [facility] Comment on above: Order Comment: Speci men Type: BLOOD SPECIMENOrdering Facility: [facility] Address: [address] [place] [address] Result Comment: Luzmaria mated Glomerular Filtration Rate [...] Performed By: #### 2 4321-2, , 2776-05 ####[facility]ORATORYCLIA [id number] [place] [address] [place] Glucose [Mass/Vol] 106 mg/dL High 74-99 [facility] Comment on above: Order Comment: Shira feldman Type: BLOOD SPECIMENOrdering Facility: [facility] Address: [address] [place] [address] Result Comment: The [employer] (ADA) provides guidance for cutoff [...] Standards of Medical Care in Diabetes 2016, [employer]. Diabetes Care. 2016.39(Suppl 1). Performed By: #### 2 4321-2, , 2776-05 ####[facility] LABORATORYIA [id number] [place] [address] [place] Potassium [Moles/Vol] 4.1 mmol/L Normal 3.7-5.1 [facility] Comment on above: Order Comment: Shira feldman Type: BLOOD SPECIMENOrdering Facility: [facility] Address: [address] [place] [id number] Performed By: #### 2 4321-2, , 2776-05 ####[facility]ORATORYCLIA [id number] [address] [place] Sodium [Moles/Vol] 135 mmol/L Low 136-144 [facility] Comment on above: Order Comment: Speci men Type: BLOOD SPECIMENOrdering Facility: [facility] Address: [address] [place] [address] Performed By: #### 2 4321-2, 59728-6, 2777-1 ####[facility]ATORYCLIA [id number] [address] [place] Urea nitrogen [Mass/Vol] 26 mg/dL High 9-24 [facility] Comment on above: Order Comment: Speci men Type: BLOOD SPECIMENOrdering Facility: [facility] Address: [address] [place] [address] Performed By: #### 2 4321-2, , 2777-1 ####[facility]ATORYCLIA [id number] [address] STATES [facility] CBC W Auto Differential pane l (Bld)on 08-09-2021 Basophils (Bld) [#/Vol] 0.06 10*3/uL Normal <0.11 [facility] Comment on above: Order Comment: Speci men Type: BLOOD SPECIMENOrdering Facility: [facility] Address: [address] [place] [address] Performed By: #### 5 7021-8 ####[facility]ATORYCLIA [id number] [address] [place] Basophils/100 WBC (Bld) 0.5 % Normal [facility] Comment on above: Order Comment: Speci men Type: BLOOD SPECIMENOrdering Facility: [facility] Address: [address] [place] [address] Performed By: #### 5 7021-8 ####[facility]ORATORYCLIA [id number] [address] STATES [facility] Differential cell count method Nom (Bld) Auto Normal [facility] Comment on above: Order Comment: Speci men Type: BLOOD SPECIMENOrdering Facility: [facility] Address: [address] [place] [address] Performed By: #### 5 7021-8 ####[facility]ORATORYCLIA [id number] [address] OF [facility] Eosinophils (Bld) [#/Vol] 0.42 10*3/uL Normal <0.46 [facility] Comment on above: Order Comment: Speci men Type: BLOOD SPECIMENOrdering Facility: [facility] Address: [address] [place] [address] Performed By: #### 5 7021-8 ####[facility]ATORYCLIA [id number] [address] Eosinophils/100 WBC (Bld) 3.8 % Normal [facility] Comment on above: Order Comment: Speci men Type: BLOOD SPECIMENOrdering Facility: [facility] Address: [address] [place] [address] Performed By: #### 5 7021-8 ####[facility]ORATORYCLIA [id number] [address] Erythrocyte distribution width (RBC) [Ratio] 17.6 % High 11.5-15.0 [facility] Comment on above: Order Comment: Speci men Type: BLOOD SPECIMENOrdering Facility: [facility] Address: [address] [place] [address] Performed By: #### 5 7021-8 ####[facility]ORATORYCLIA [id number] [address] Hematocrit (Bld) [Volume fraction] 29.3 % Low 39.0-51.0 [facility] Comment on above: Order Comment: Speci men Type: BLOOD SPECIMENOrdering Facility: [facility] Address: [address] [place] [address] Performed By: #### 5 7021-8 ####[facility]ORATORYCLIA [id number] [address] Hemoglobin (Bld) [Mass/Vol] 9.0 g/dL Low 13.0-17.0 [facility] Comment on above: Order Comment: Speci men Type: BLOOD SPECIMENOrdering Facility: [facility] Address: [address] [place] [address] Performed By: #### 5 7021-8 ####[facility]ATORYCLIA [id number] [address] IMMATURE GRAN % 0.5 % Normal [facility] Comment on above: Order Comment: Speci men Type: BLOOD SPECIMENOrdering Facility: [facility] Address: [address] [place] [address] Performed By: #### 5 7021-8 ####[facility]ORATORYCLIA [id number] [address] IMMATURE GRAN ABS 0.05 k/uL Normal <0.10 [facility] Comment on above: Order Comment: Speci men Type: BLOOD SPECIMENOrdering Facility: [facility] Address: [address] [place] [address] Performed By: #### 5 7021-8 ####[facility]ATORYCLIA [id number] [address] Lymphocytes (Bld) [#/Vol] 2.00 10*3/uL Normal 1.00-4.00 [facility] Comment on above: Order Comment: Speci men Type: BLOOD SPECIMENOrdering Facility: [facility] Address: [address] [place] [address] Performed By: #### 5 7021-8 ####[facility]ATORYCLIA [id number] [address] Lymphocytes/100 WBC (Bld) 18.1 % Normal [facility] Comment on above: Order Comment: Speci men Type: BLOOD SPECIMENOrdering Facility: [facility] Address: [address] [place] [address] Performed By: #### 5 7021-8 ####[facility]ATORYCLIA [id number] [address] MCH (RBC) [Entitic mass] 28.1 pg Normal 26.0-34.0 [facility] Comment on above: Order Comment: Speci men Type: BLOOD SPECIMENOrdering Facility: [facility] Address: [address] [place] [address] Performed By: #### 5 7021-8 ####[facility]ATORYCLIA [id number] [address] MCHC (RBC) [Mass/Vol] 30.7 g/dL Normal 30.5-36.0 [facility] Comment on above: Order Comment: Speci men Type: BLOOD SPECIMENOrdering Facility: [facility] Address: [address] [place] [address] Performed By: #### 5 7021-8 ####[facility]ATORYCLIA [id number] [address] MCV (RBC) [Entitic vol] 91.6 fL Normal 80.0-100.0 [facility] Comment on above: Order Comment: Speci men Type: BLOOD SPECIMENOrdering Facility: [facility] Address: [address] [place] [address] Performed By: #### 5 7021-8 ####[facility]ATORYCLIA [id number] [address] STATES [facility] Monocytes (Bld) [#/Vol] 0.68 10*3/uL Normal <0.87 [facility] Comment on above: Order Comment: Speci men Type: BLOOD SPECIMENOrdering Facility: [facility] Address: [address] [place] [address] Performed By: #### 5 7021-8 ####[facility]ATORYCLIA [id number] [address] Monocytes/100 WBC (Bld) 6.2 % Normal [facility] Comment on above: Order Comment: Speci men Type: BLOOD SPECIMENOrdering Facility: [facility] Address: [address] [place] [address] Performed By: #### 5 7021-8 ####[facility]ATORYCLIA [id number] [address] [place] Neutrophils (Bld) [#/Vol] 7.82 10*3/uL High 1.45-7.50 [facility] Comment on above: Order Comment: Speci men Type: BLOOD SPECIMENOrdering Facility: [facility] Address: [address] [place] [address] Performed By: #### 5 7021-8 ####[facility]ATORYCLIA [id number] [address] Neutrophils/100 WBC (Bld) 70.9 % Normal [facility] Comment on above: Order Comment: Speci men Type: BLOOD SPECIMENOrdering Facility: [facility] Address: [address] [place] [address] Performed By: #### 5 7021-8 ####[facility]ORATORYCLIA [id number] [address] [place] Nucleated RBC (Bld) [#/Vol] 10*3/uL Normal <0.01 [facility] Comment on above: Order Comment: Speci men Type: BLOOD SPECIMENOrdering Facility: [facility] Address: [address] [place] [address] Performed By: #### 5 7021-8 ####[facility]ATORYCLIA [id number] [address] Nucleated RBC/100 WBC (Bld) [Ratio] 0.0 /100 WBC Normal [facility] Comment on above: Order Comment: Speci men Type: BLOOD SPECIMENOrdering Facility: [facility] Address: [address] [place] [address] Performed By: #### 5 7021-8 ####[facility]ORATORYCLIA [id number] [address] [place] Platelet mean volume (Bld) [Entitic vol] 10.1 fL Normal 9.0-12.7 [facility] Comment on above: Order Comment: Speci men Type: BLOOD SPECIMENOrdering Facility: [facility] Address: [address] [place] [address] Performed By: #### 5 7021-8 ####[facility]ATORYCLIA [id number] [address] [place] Platelets (Bld) [#/Vol] 160 10*3/uL Normal 150-400 [facility] Comment on above: Order Comment: Speci men Type: BLOOD SPECIMENOrdering Facility: [facility] Address: [address] [place] [address] Performed By: #### 5 7021-8 ####[facility]ORATORYCLIA [id number] [place] [address] [place] RBC (Bld) [#/Vol] 3.20 10*6/uL Low 4.20-6.00 [facility] Comment on above: Order Comment: Speci men Type: BLOOD SPECIMENOrdering Facility: [facility] Address: [address] [place] [address] Performed By: #### 5 7021-8 ####[facility]ORATORYCLIA [id number] [address] [place] WBC (Bld) [#/Vol] 11.03 10*3/uL High 3.70-11.00 [facility] Comment on above: Order Comment: Speci men Type: BLOOD SPECIMENOrdering Facility: [facility] Address: [address] [place] [address] Performed By: #### 5 7021-8 ####[facility]ORATORYCLIA [id number] [address] [place] CONSULT PROGon 08-09-2021 CONSULT PROG Normal [facility] CT BRAIN WO IVCONon 08-10-19 CT BRAIN WO IVCON Normal [facility] CT BRAIN WO IVCON Normal [facility] Magnesium SerPl-mCncon 08-09 Magnesium [Mass/Vol] 2.0 mg/dL Normal 1.7-2.3 [facility] Comment on above: Order Comment: Shira feldman Type: BLOOD SPECIMENOrdering Facility: [facility] Address: [address] [place] [address] Performed By: #### 2 4321-2, 66929-6, 2777-1 ####[facility]ORATORYCLIA [id number] [address] STATES OF [facility] NURSING PROGon 08-09-2021 NURSING PROG Normal [facility] OPERATIVE NOon 08-09-2021 OPERATIVE NO Normal [facility] PT panel Coag (PPP)on 2021 INR Coag (PPP) [Relative time] 1.1 {INR} Normal 0.9-1.3 [facility] Comment on above: Order Comment: Shira feldman Type: BLOOD SPECIMENOrdering Facility: [facility] Address: [address] [place] [address] Result Comment: Yris min K Antagonist (VKA) Therapeutic Range: INR 2 to 3 (Target INR of 2.5)Note: For patients treated with VKA drugs, such as warfarin, the [employer] 2012 Guideline recommends [...] 70: 252-289 Performed By: #### 3 4528-0, 76978-2 ####[facility] LABORATORYCLIA [id number] [place] [id number] [facility] [place] PT Coag (PPP) [Time] 11.7 s Normal 9.7-13.0 [facility] Comment on above: Order Comment: Speci men Type: BLOOD SPECIMENOrdering Facility: [facility] Address: [address] [place] [address] Performed By: #### 3 4528-0, 23611-4 ####[facility]ORATORYCLIA [id number] [address] Phosphate SerPl-mCncon 08-09 Phosphate [Mass/Vol] 4.0 mg/dL Normal 2.7-4.8 [facility] Comment on above: Order Comment: Speci men Type: BLOOD SPECIMENOrdering Facility: [facility] Address: [address] [place] [address] Performed By: #### 2 4321-2, 81531-2, 2777-1 ####[facility]ORATORYCLIA [id number] [address] OF [facility] THERAPY NTon 08-09-2021 THERAPY NT Normal [facility] THERAPY NT Normal [facility] TYPE AND SCREENon 08-09-2021 ABO O Normal [facility] Comment on above: Order Comment: Speci men Type: BLOOD SPECIMENOrdering Facility: [facility] Address: [address] [place] [address] Performed By: #### T SCR ####[facility] BANKCLIA [id number] [address] OF [facility] HISTORICAL AB SCR STATUS Negative Normal [facility] Comment on above: Order Comment: Speci men Type: BLOOD SPECIMENOrdering Facility: [facility] Address: [address] [place] [address] Performed By: #### T SCR ####[facility] BANKCLIA [id number] [address] Rh Nom (Bld) Positive Normal [facility] Comment on above: Order Comment: Speci men Type: BLOOD SPECIMENOrdering Facility: [facility] Address: [address] [place] [address] Performed By: #### T SCR ####[facility] B[facility] BANKCLIA [id number] [address] TYPE AND SCREEN EXPIRATION 08/12/2021 23:59 Normal [facility] Comment on above: Order Comment: Speci men Type: BLOOD SPECIMENOrdering Facility: [facility] Address: [address] [place] [address] Performed By: #### T SCR ####[facility] BLOOD BANKCLIA [id number] [address] XR ABD 2V SUPINE W UPR/DECUB /CTLon 08-09-2021 XR ABD 2V SUPINE W UPR/DECUB/CTL Normal [facility] XR CHEST 1V FRONTALon 2021 XR CHEST 1V FRONTAL Normal [facility] XR NECK SOFT TISSUE 2V AP/LA Ton 08-09-2021 XR NECK SOFT TISSUE 2V AP/LAT Normal [facility] XR SKULL 2V AP/LATon 022 XR SKULL 2V AP/LAT Normal [facility] aPTT PPPon 08-09-2021 aPTT Coag (PPP) [Time] 26.8 s Normal 23.0-32.4 [facility] [facility] Comment on above: Order Comment: Speci men Type: BLOOD SPECIMENOrdering Facility: [facility] Address: [address] [place] [address] Performed By: #### 3 4528-0, 83642-1 ####[facility]ORATORYCLIA [id number] [address] CASE MANAGEMon 08-08-2021 CASE MANAGEM Normal [facility] CBC W Auto Differential pane l (Bld)on 08-08-2021 Basophils (Bld) [#/Vol] 0.05 10*3/uL Normal <0.11 [facility] Comment on above: Order Comment: Speci men Type: BLOOD SPECIMENOrdering Facility: [facility] Address: [address] [place] [address] Performed By: #### 5 7021-8 ####[facility]ATORYCLIA [id number] [address] STATES [facility] Basophils/100 WBC (Bld) 0.5 % Normal [facility] Comment on above: Order Comment: Speci men Type: BLOOD SPECIMENOrdering Facility: [facility] Address: [address] [place] [address] Performed By: #### 5 7021-8 ####[facility]ATORYCLIA [id number] [address] [place] Differential cell count method Nom (Bld) Auto Normal [facility] Comment on above: Order Comment: Speci men Type: BLOOD SPECIMENOrdering Facility: [facility] Address: [address] [place] [address] Performed By: #### 5 7021-8 ####[facility]ATORYCLIA [id number] [address] [place] Eosinophils (Bld) [#/Vol] 0.17 10*3/uL Normal <0.46 [facility] Comment on above: Order Comment: Speci men Type: BLOOD SPECIMENOrdering Facility: [facility] Address: [address] [place] [address] Performed By: #### 5 7021-8 ####[facility]ORYCLIA [id number] [address] Eosinophils/100 WBC (Bld) 1.6 % Normal [facility] Comment on above: Order Comment: Speci men Type: BLOOD SPECIMENOrdering Facility: [facility] Address: [address] [place] [address] Performed By: #### 5 7021-8 ####[facility]ATORYCLIA [id number] [address] [place] Erythrocyte distribution width (RBC) [Ratio] 17.8 % High 11.5-15.0 [facility] Comment on above: Order Comment: Speci men Type: BLOOD SPECIMENOrdering Facility: [facility] Address: [address] [address] Performed By: #### 5 7021-8 ####[facility]ATORYCLIA [id number] [address] Hematocrit (Bld) [Volume fraction] 29.6 % Low 39.0-51.0 [facility] Comment on above: Order Comment: Speci men Type: BLOOD SPECIMENOrdering Facility: [facility] Address: [address] [place] [address] Performed By: #### 5 7021-8 ####[facility]ATORYCLIA [id number] [address] Hemoglobin (Bld) [Mass/Vol] 9.0 g/dL Low 13.0-17.0 [facility] Comment on above: Order Comment: Speci men Type: BLOOD SPECIMENOrdering Facility: [facility] Address: [address] [place] [address] Performed By: #### 5 7021-8 ####[facility]ATORYCLIA [id number] [address] IMMATURE GRAN % 0.5 % Normal [facility] Comment on above: Order Comment: Speci men Type: BLOOD SPECIMENOrdering Facility: [facility] Address: [address] [place] [address] Performed By: #### 5 7021-8 ####[facility]ATORYCLIA [id number] [address] IMMATURE GRAN ABS 0.05 k/uL Normal <0.10 [facility] Comment on above: Order Comment: Speci men Type: BLOOD SPECIMENOrdering Facility: [facility] Address: [address] [place] [address] Performed By: #### 5 7021-8 ####[facility]ATORYCLIA [id number] [address] [place] Lymphocytes (Bld) [#/Vol] 1.93 10*3/uL Normal 1.00-4.00 [facility] Comment on above: Order Comment: Speci men Type: BLOOD SPECIMENOrdering Facility: [facility] Address: [address] [place] [address] Performed By: #### 5 7021-8 ####[facility]ATORYCLIA [id number] [address] Lymphocytes/100 WBC (Bld) 18.2 % Normal [facility] Comment on above: Order Comment: Speci men Type: BLOOD SPECIMENOrdering Facility: [facility] Address: [address] [place] [address] Performed By: #### 5 7021-8 ####[facility]ATORYCLIA [id number] [address] MCH (RBC) [Entitic mass] 28.1 pg Normal 26.0-34.0 [facility] Comment on above: Order Comment: Speci men Type: BLOOD SPECIMENOrdering Facility: [facility] Address: [address] [place] [address] Performed By: #### 5 7021-8 ####[facility]ATORYCLIA [id number] [address] MCHC (RBC) [Mass/Vol] 30.4 g/dL Low 30.5-36.0 [facility] Comment on above: Order Comment: Speci men Type: BLOOD SPECIMENOrdering Facility: [facility] Address: [address] [place] [address] Performed By: #### 5 7021-8 ####[facility]ATORYCLIA [id number] [address] MCV (RBC) [Entitic vol] 92.5 fL Normal 80.0-100.0 [facility] Comment on above: Order Comment: Speci men Type: BLOOD SPECIMENOrdering Facility: [facility] Address: [address] [place] [address] Performed By: #### 5 7021-8 ####[facility]ORATORYCLIA [id number] [place] [address] [place] Monocytes (Bld) [#/Vol] 0.75 10*3/uL Normal <0.87 [facility] Comment on above: Order Comment: Speci men Type: BLOOD SPECIMENOrdering Facility: [facility] Address: [address] [place] [address] Performed By: #### 5 7021-8 ####[facility]ATORYCLIA [id number] [place] [address] [place] Monocytes/100 WBC (Bld) 7.1 % Normal [facility] Comment on above: Order Comment: Speci men Type: BLOOD SPECIMENOrdering Facility: [facility] Address: [address] [place] [address] Performed By: #### 5 7021-8 ####[facility]ATORYCLIA [id number] [address] [place] Neutrophils (Bld) [#/Vol] 7.65 10*3/uL High 1.45-7.50 [facility] Comment on above: Order Comment: Speci men Type: BLOOD SPECIMENOrdering Facility: [facility] Address: [address] [place] [address] Performed By: #### 5 7021-8 ####[facility]ATORYCLIA [id number] [address] [place] Neutrophils/100 WBC (Bld) 72.1 % Normal [facility] Comment on above: Order Comment: Speci men Type: BLOOD SPECIMENOrdering Facility: [facility] Address: [address] [place] [address] Performed By: #### 5 7021-8 ####[facility]ATORYCLIA [id number] [address] [place] Nucleated RBC (Bld) [#/Vol] 10*3/uL Normal <0.01 [facility] Comment on above: Order Comment: Speci men Type: BLOOD SPECIMENOrdering Facility: [facility] Address: [address] [place] [address] Performed By: #### 5 7021-8 ####[facility]ATORYCLIA [id number] [address] [place] Nucleated RBC/100 WBC (Bld) [Ratio] 0.0 /100 WBC Normal [facility] Comment on above: Order Comment: Speci men Type: BLOOD SPECIMENOrdering Facility: [facility] Address: [address] [place] [address] Performed By: #### 5 7021-8 ####[facility]ATORYCLIA [id number] [address] [place] Platelet mean volume (Bld) [Entitic vol] 9.8 fL Normal 9.0-12.7 [facility] Comment on above: Order Comment: Speci men Type: BLOOD SPECIMENOrdering Facility: [facility] Address: [address] [place] [address] Performed By: #### 5 7021-8 ####[facility]ATORYCLIA [id number] [address] [place] Platelets (Bld) [#/Vol] 175 10*3/uL Normal 150-400 [facility] Comment on above: Order Comment: Speci men Type: BLOOD SPECIMENOrdering Facility: [facility] Address: [address] [place] [address] Performed By: #### 5 7021-8 ####[facility]ATORYCLIA [id number] [address] [place] RBC (Bld) [#/Vol] 3.20 10*6/uL Low 4.20-6.00 [facility] Comment on above: Order Comment: Speci men Type: BLOOD SPECIMENOrdering Facility: [facility] Address: [address] [place] [address] Performed By: #### 5 7021-8 ####[facility]ATORYCLIA [id number] [address] [place] WBC (Bld) [#/Vol] 10.60 10*3/uL Normal 3.70-11.00 [facility] Comment on above: Order Comment: Speci men Type: BLOOD SPECIMENOrdering Facility: [facility] Address: [address] [place] [address] Performed By: #### 5 7021-8 ####[facility]ATORYCLIA [id number] [address] OF [facility] CT BRAIN WO IVCONon 08-09-19 CT BRAIN WO IVCON Normal [facility] NURSING PROGon 08-08-2021 NURSING PROG Normal [facility] Prealbumin [Mass/Vol]on Prealbumin Nephelometry [Mass/Vol] 29 mg/dL Normal [facility] Comment on above: Order Comment: Speci men Type: BLOOD SPECIMENOrdering Facility: [facility] Address: [address] [place] [address] Performed By: #### 1 4338-8 ####[facility]ATORYCLIA [id number] [address] SARS-CoV-2 RNA Resp Ql MEGAN+p robeon 08-08-2021 SARS-CoV-2 (COVID-19) RNA MEGAN+probe Ql (Resp) COVID 19 RESULT: SARS-CoV-2 (Agent of COVID-19) Not Detected by RT-PCR or equivalent method. This test has been authorized by FDA under an Emergency Use Authorization (EUA). Normal [facility] Comment on above: Performed By: #### 9 4500-6 ####[facility]ATORYCLIA [id number] [address] [place] ALLIED HEALTHon 08-07-2021 ALLIED HEALTH Normal [facility] Basic metabolic 2000 panelon 08-07-2021 Anion gap [Moles/Vol] 9 mmol/L Normal - [facility] Comment on above: Order Comment: Speci men Type: BLOOD SPECIMENOrdering Facility: [facility] Address: [address] [place] [address] Performed By: #### 2 4321-2, 2777-1, , HFP ####[facility]ATORYCLIA [id number] [place] [address] [place] Calcium [Mass/Vol] 9.4 mg/dL Normal 8.5-10.2 [facility] Comment on above: Order Comment: Speci men Type: BLOOD SPECIMENOrdering Facility: [facility] Address: [address] [place] [address] Performed By: #### 2 4321-2, 2776-05, , HFP ####[facility]ATORYCLIA [id number] [place] [address] [place] Chloride [Moles/Vol] 98 mmol/L Normal 97-105 [facility] Comment on above: Order Comment: Speci men Type: BLOOD SPECIMENOrdering Facility: [facility] Address: [address] [place] [address] Performed By: #### 2 4321-2, 2776-05, , HFP ####[facility]ATORYCLIA [id number] [place] [address] [place] CO2 [Moles/Vol] 29 mmol/L Normal 22-30 [facility] Comment on above: Order Comment: Speci men Type: BLOOD SPECIMENOrdering Facility: [facility] Address: [address] [place] [address] Performed By: #### 2 4321-2, 2776-05, , HFP ####[facility]ATORYCLIA [id number] [place] [address] [place] Creatinine [Mass/Vol] 0.67 mg/dL Low 0.73-1.22 [facility] Comment on above: Order Comment: Speci men Type: BLOOD SPECIMENOrdering Facility: [facility] Address: [address] [place], [place] [address] Performed By: #### 2 4321-2, 2776-05, , HFP ####[facility]ATORYCLIA [id number] [place] [address] [place] ESTIMATED GLOMERULAR FILTRATION RATE 101 mL/min/1.73m??? Normal >=60 [facility] Comment on above: Order Comment: Shira feldman Type: BLOOD SPECIMENOrdering Facility: [facility] Address: [address] [place] [address] Result Comment: Luzmaria mated Glomerular Filtration Rate [...] Performed By: #### 2 4321-2, 2777-, , [facility] ####[facility]ATORYCLIA [id number] [place] [address] [place] Glucose [Mass/Vol] 117 mg/dL High 74-99 [facility] Comment on above: Order Comment: Shira feldman Type: BLOOD SPECIMENOrdering Facility: [facility] Address: [address] [place] [address] Result Comment: The [employer] (ADA) provides guidance for cutoff [...] Standards of Medical Care in Diabetes 2016, [employer]. Diabetes Care. 2016.39(Suppl 1). Performed By: #### 2 4321-2, 2777-, , [facility] ####[facility]ATORYCLIA [id number] [place] [address] [place] Potassium [Moles/Vol] 4.1 mmol/L Normal 3.7-5.1 [facility] Comment on above: Order Comment: Speci men Type: BLOOD SPECIMENOrdering Facility: [facility] Address: [address] [place], [place] [address] Performed By: #### 2 4321-2, 2776-05, , [facility] ####[facility]ORATORYCLIA [id number] [address] [place] Sodium [Moles/Vol] 136 mmol/L Normal 136-144 [facility] Comment on above: Order Comment: Speci men Type: BLOOD SPECIMENOrdering Facility: [facility] Address: [address] [place] [address] Performed By: #### 2 4321-2, 2776-05, , [facility] ####[facility]ATORYCLIA [id number] [address] [place] Urea nitrogen [Mass/Vol] 31 mg/dL High 9-24 [facility] Comment on above: Order Comment: Speci men Type: BLOOD SPECIMENOrdering Facility: [facility] Address: [address] [place] [address] Performed By: #### 2 4321-2, 2776-05, , [facility] ####[facility]ATORYCLIA [id number] [address] [place] CBC W Auto Differential pane l (Bld)on 08-07-2021 Basophils (Bld) [#/Vol] 0.03 10*3/uL Normal <0.11 [facility] Comment on above: Order Comment: Speci men Type: BLOOD SPECIMENOrdering Facility: [facility] Address: [address] [place] [address] Performed By: #### 5 7021-8 ####[facility]ATORYCLIA [id number] [address] Basophils/100 WBC (Bld) 0.3 % Normal [facility] Comment on above: Order Comment: Speci men Type: BLOOD SPECIMENOrdering Facility: [facility] Address: [address] [place], [place] [address] Performed By: #### 5 7021-8 ####[facility]ATORYCLIA [id number] [address] Differential cell count method Nom (Bld) Auto Normal [facility] Comment on above: Order Comment: Speci men Type: BLOOD SPECIMENOrdering Facility: [facility] Address: [address] [place] [address] Performed By: #### 5 7021-8 ####[facility]ATORYCLIA [id number] [address] Eosinophils (Bld) [#/Vol] 0.16 10*3/uL Normal <0.46 [facility] Comment on above: Order Comment: Speci men Type: BLOOD SPECIMENOrdering Facility: [facility] Address: [address] [place] [address] Performed By: #### 5 7021-8 ####[facility]ATORYCLIA [id number] [address] Eosinophils/100 WBC (Bld) 1.6 % Normal [facility] Comment on above: Order Comment: Speci men Type: BLOOD SPECIMENOrdering Facility: [facility] Address: [address] [place] [address] Performed By: #### 5 7021-8 ####[facility]ATORYCLIA [id number] [address] Erythrocyte distribution width (RBC) [Ratio] 18.1 % High 11.5-15.0 [facility] Comment on above: Order Comment: Speci men Type: BLOOD SPECIMENOrdering Facility: [facility] Address: [address] [place] [address] Performed By: #### 5 7021-8 ####[facility]ATORYCLIA [id number] [address] [place] Hematocrit (Bld) [Volume fraction] 30.6 % Low 39.0-51.0 [facility] Comment on above: Order Comment: Speci men Type: BLOOD SPECIMENOrdering Facility: [facility] Address: [address] [place] [address] Performed By: #### 5 7021-8 ####[facility]ATORYCLIA [id number] [address] Hemoglobin (Bld) [Mass/Vol] 9.4 g/dL Low 13.0-17.0 [facility] Comment on above: Order Comment: Speci men Type: BLOOD SPECIMENOrdering Facility: [facility] Address: [address] [place] [address] Performed By: #### 5 7021-8 ####[facility]ATORYCLIA [id number] [address] IMMATURE GRAN % 0.4 % Normal [facility] Comment on above: Order Comment: Speci men Type: BLOOD SPECIMENOrdering Facility: [facility] Address: [address] [place] [address] Performed By: #### 5 7021-8 ####[facility]ATORYCLIA [id number] [address] IMMATURE GRAN ABS 0.04 k/uL Normal <0.10 [facility] Comment on above: Order Comment: Speci men Type: BLOOD SPECIMENOrdering Facility: [facility] Address: [address] [place] [address] Performed By: #### 5 7021-8 ####[facility]ATORYCLIA [id number] [address] Lymphocytes (Bld) [#/Vol] 2.05 10*3/uL Normal 1.00-4.00 [facility] Comment on above: Order Comment: Speci men Type: BLOOD SPECIMENOrdering Facility: [facility] Address: [address] [place] [address] Performed By: #### 5 7021-8 ####[facility]ATORYCLIA [id number] [address] Lymphocytes/100 WBC (Bld) 20.2 % Normal [facility] Comment on above: Order Comment: Speci men Type: BLOOD SPECIMENOrdering Facility: [facility] Address: [address] [place] [address] Performed By: #### 5 7021-8 ####[facility]ATORYCLIA [id number] [address] MCH (RBC) [Entitic mass] 28.8 pg Normal 26.0-34.0 [facility] Comment on above: Order Comment: Speci men Type: BLOOD SPECIMENOrdering Facility: [facility] Address: [address] [place] [address] Performed By: #### 5 7021-8 ####[facility]ATORYCLIA [id number] [address] MCHC (RBC) [Mass/Vol] 30.7 g/dL Normal 30.5-36.0 [facility] Comment on above: Order Comment: Speci men Type: BLOOD SPECIMENOrdering Facility: [facility] Address: [address] [place] [address] Performed By: #### 5 7021-8 ####[facility]ATORYCLIA [id number] [address] MCV (RBC) [Entitic vol] 93.9 fL Normal 80.0-100.0 [facility] Comment on above: Order Comment: Speci men Type: BLOOD SPECIMENOrdering Facility: [facility] Address: [address] [place] [address] Performed By: #### 5 7021-8 ####[facility]ORATORYCLIA [id number] [address] Monocytes (Bld) [#/Vol] 0.64 10*3/uL Normal <0.87 [facility] Comment on above: Order Comment: Speci men Type: BLOOD SPECIMENOrdering Facility: [facility] Address: [address] [place] [address] Performed By: #### 5 7021-8 ####[facility]ATORYCLIA [id number] [address] [place] Monocytes/100 WBC (Bld) 6.3 % Normal [facility] Comment on above: Order Comment: Speci men Type: BLOOD SPECIMENOrdering Facility: [facility] Address: [address] [place] [address] Performed By: #### 5 7021-8 ####[facility]ATORYCLIA [id number] [address] [place] Neutrophils (Bld) [#/Vol] 7.22 10*3/uL Normal 1.45-7.50 [facility] Comment on above: Order Comment: Speci men Type: BLOOD SPECIMENOrdering Facility: [facility] Address: [address] [place] [address] Performed By: #### 5 7021-8 ####[facility]ATORYCLIA [id number] [address] Neutrophils/100 WBC (Bld) 71.2 % Normal [facility] Comment on above: Order Comment: Speci men Type: BLOOD SPECIMENOrdering Facility: [facility] Address: [address] [place] [address] Performed By: #### 5 7021-8 ####[facility]ATORYCLIA [id number] [address] [place] Nucleated RBC (Bld) [#/Vol] 10*3/uL Normal <0.01 [facility] Comment on above: Order Comment: Speci men Type: BLOOD SPECIMENOrdering Facility: [facility] Address: [address] [place] [address] Performed By: #### 5 7021-8 ####[facility]ATORYCLIA [id number] [address] [place] Nucleated RBC/100 WBC (Bld) [Ratio] 0.0 /100 WBC Normal [facility] Comment on above: Order Comment: Speci men Type: BLOOD SPECIMENOrdering Facility: [facility] Address: [address] Performed By: #### 5 7021-8 ####[facility]ATORYCLIA [id number] [address] Platelet mean volume (Bld) [Entitic vol] 9.9 fL Normal 9.0-12.7 [facility] Comment on above: Order Comment: Speci men Type: BLOOD SPECIMENOrdering Facility: [facility] Address: [address] [place], [place] [address] Performed By: #### 5 7021-8 ####[facility]ORATORYCLIA [id number] [address] OF [facility] Platelets (Bld) [#/Vol] 227 10*3/uL Normal 150-400 [facility] Comment on above: Order Comment: Speci men Type: BLOOD SPECIMENOrdering Facility: [facility] Address: [address] [place] [address] Performed By: #### 5 7021-8 ####[facility]ATORYCLIA [id number] [address] [place] RBC (Bld) [#/Vol] 3.26 10*6/uL Low 4.20-6.00 [facility] Comment on above: Order Comment: Speci men Type: BLOOD SPECIMENOrdering Facility: [facility] Address: [address] [place], [place] [address] Performed By: #### 5 7021-8 ####[facility]ATORYCLIA [id number] [address] [place] WBC (Bld) [#/Vol] 10.14 10*3/uL Normal 3.70-11.00 [facility] Comment on above: Order Comment: Speci men Type: BLOOD SPECIMENOrdering Facility: [facility] Address: [address] [place], [place] [address] Performed By: #### 5 7021-8 ####[facility]ATORYCLIA [id number] [address] BRAIN WO IVCONon 08-08-19 CT BRAIN WO IVCON Normal [facility] HEPATIC FUNCTION PNLon 08-07 Albumin [Mass/Vol] 3.6 g/dL Low 3.9-4.9 [facility] Comment on above: Order Comment: Speci men Type: BLOOD SPECIMENOrdering Facility: [facility] Address: [address] [place] [address] Performed By: #### 2 4321-2, 277-, , HFP ####[facility] LABORATORYCLIA [id number] [address] [place] AL[place] [Catalytic activity/Vol] 124 U/L High 38-113 [facility] Comment on above: Order Comment: Speci men Type: BLOOD SPECIMENOrdering Facility: [facility] Address: [address] [place], [place] [address] Performed By: #### 2 4321-2, 2776-05, , HFP ####[facility]ATORYCLIA [id number] [address] STATES OF [facility] ALT With P-5'-P [Catalytic activity/Vol] 29 U/L Normal 10-54 [facility] Comment on above: Order Comment: Speci men Type: BLOOD SPECIMENOrdering Facility: [facility] Address: [address] [place] [address] Performed By: #### 2 4321-2, 2776-05, , HFP ####[facility]ATORYCLIA [id number] [address] AST With P-5'-P [Catalytic activity/Vol] 18 U/L Normal 14-40 [facility] Comment on above: Order Comment: Speci men Type: BLOOD SPECIMENOrdering Facility: [facility] Address: [address] [place] [address] Performed By: #### 2 4321-2, 2777-1, , HFP ####[facility]ATORYCLIA [id number] [address] STATES OF [facility] Bilirubin [Mass/Vol] 0.3 mg/dL Normal 0.2-1.3 [facility] Comment on above: Order Comment: Speci men Type: BLOOD SPECIMENOrdering Facility: [facility] Address: [address] [place] [address] Performed By: #### 2 4321-2, 2777-1, , HFP ####[facility]ATORYCLIA [id number] [address] Bilirubin.conjugated [Mass/Vol] mg/dL Normal <0.2 [facility] Comment on above: Order Comment: Speci men Type: BLOOD SPECIMENOrdering Facility: [facility] Address: [address] [place] [address] Performed By: #### 2 4321-2, 277-, , HFP ####[facility]ORYCLIA [id number] [address] Protein [Mass/Vol] 6.4 g/dL Normal 6.3-8.0 [facility] Comment on above: Order Comment: Speci men Type: BLOOD SPECIMENOrdering Facility: [facility] Address: [address] [place] [address] Performed By: #### 2 4321-2, 277-1, , HFP ####[facility]ATORYCLIA [id number] [address] OF [place] Magnesium SerPl-mCncon 08-07 Magnesium [Mass/Vol] 2.3 mg/dL Normal 1.7-2.3 [facility] Comment on above: Order Comment: Speci men Type: BLOOD SPECIMENOrdering Facility: [facility] Address: [address] [place] [address] Performed By: #### 2 4321-2, 2777-1, , HFP ####[facility]ORYCLIA [id number] [address] NURSING PROGon 08-07-2021 NURSING PROG Normal [facility] Phosphate SerPl-mCncon 08-07 Phosphate [Mass/Vol] 3.5 mg/dL Normal 2.7-4.8 [facility] Comment on above: Order Comment: Speci men Type: BLOOD SPECIMENOrdering Facility: [facility] Address: [address] [place] [address] Performed By: #### 2 4321-2, 2776-, , HFP ####[facility]ORYCLIA [id number] [address] OF [facility] ANES POSTPROC EVALon 022 ANES POSTPROC EVAL Normal [facility] Basic metabolic 2000 panelon 08-06-2021 Anion gap [Moles/Vol] 11 mmol/L Normal 9-18 [facility] Comment on above: Order Comment: Speci men Type: BLOOD SPECIMENOrdering Facility: [facility] Address: [address] [place] [address] Performed By: #### 2 4321-2, 2776-05, ####[facility]ATORYCLIA [id number] [place] [address] [place] Calcium [Mass/Vol] 8.2 mg/dL Low 8.5-10.2 [facility] Comment on above: Order Comment: Speci men Type: BLOOD SPECIMENOrdering Facility: [facility] Address: [address] [place] [address] Performed By: #### 2 4321-2, 2776-05, ####[facility]ORYCLIA [id number] [place] [address] [place] Chloride [Moles/Vol] 100 mmol/L Normal 97-105 [facility] Comment on above: Order Comment: Speci men Type: BLOOD SPECIMENOrdering Facility: [facility] Address: [address] [place] [address] Performed By: #### 2 4321-2, 2776-05, ####[facility]ENTERCLIA [id number] [place] [address] [place] CO2 [Moles/Vol] 23 mmol/L Normal 22-30 [facility] Comment on above: Order Comment: Speci men Type: BLOOD SPECIMENOrdering Facility: [facility] Address: [address] [place] [address] Performed By: #### 2 4321-2, 2776-05, ####[facility]ATORYCLIA [id number] [place] [address] [place] OF [facility] Creatinine [Mass/Vol] 0.55 mg/dL Low 0.73-1.22 [facility] Comment on above: Order Comment: Speci men Type: BLOOD SPECIMENOrdering Facility: [facility] Address: [address] [place] [address] Performed By: #### 2 4321-2, 2776-05, ####[facility]ITALIA [id number] [address] ESTIMATED GLOMERULAR FILTRATION RATE 107 mL/min/1.73m??? Normal >=60 [facility] Comment on above: Order Comment: Speci men Type: BLOOD SPECIMENOrdering Facility: [facility] Address: [address] [place] [address] Result Comment: Luzmaria mated Glomerular Filtration Rate [...] GFR. Performed By: #### 2 4321-2, 2776-05, ####[facility]ATORYCLIA [id number] [place] [address] [facility] Glucose [Mass/Vol] 275 mg/dL High 74-99 [facility] Comment on above: Order Comment: Speci men Type: BLOOD SPECIMENOrdering Facility: [facility] Address: [address] [id number] Result Comment: The [employer] (ADA) provides guidance for cutoff [...] Standards of Medical Care in Diabetes 2016, [employer]. Diabetes Care. 2016.39(Suppl 1). Performed By: #### 2 4321-2, 2776-05, ####[facility]ATORYCLIA [id number] [place] [address] [place] Potassium [Moles/Vol] 3.6 mmol/L Low 3.7-5.1 [facility] Comment on above: Order Comment: Speci men Type: BLOOD SPECIMENOrdering Facility: [facility] Address: [address] [place], [place] [address] Performed By: #### 2 4321-2, 2776-05, ####[facility]ATORYCLIA [id number] [place] [address] [place] Sodium [Moles/Vol] 134 mmol/L Low 136-144 [facility] Comment on above: Order Comment: Speci men Type: BLOOD SPECIMENOrdering Facility: [facility] Address: [address] [id number] Performed By: #### 2 4321-2, 2776-05, ####[facility]ATORYCLIA [id number] [place] [address] [place] Urea nitrogen [Mass/Vol] 29 mg/dL High 9-24 [facility] Comment on above: Order Comment: Speci men Type: BLOOD SPECIMENOrdering Facility: [facility] Address: [address] [address] Performed By: #### 2 4321-2, 2777-1, 49940-8 ####[facility]ATORYCLIA [id number] [address] CBC W Auto Differential pane l (Bld)on 08-06-2021 Basophils (Bld) [#/Vol] 0.03 10*3/uL Normal <0.11 [facility] Comment on above: Order Comment: Speci men Type: BLOOD SPECIMENOrdering Facility: [facility] Address: [address] [place] [address] Performed By: #### 5 7021-8 ####[facility]ATORYCLIA [id number] [address] Basophils/100 WBC (Bld) 0.3 % Normal [facility] Comment on above: Order Comment: Speci men Type: BLOOD SPECIMENOrdering Facility: [facility] Address: [address] [place] [address] Performed By: #### 5 7021-8 ####[facility]ORYCLIA [id number] [address] Differential cell count method Nom (Bld) Auto Normal [facility] Comment on above: Order Comment: Speci men Type: BLOOD SPECIMENOrdering Facility: [facility] Address: [address] [place] [address] Performed By: #### 5 7021-8 ####[facility]ORYCLIA [id number] [address] STATES OF [facility] Eosinophils (Bld) [#/Vol] 0.18 10*3/uL Normal <0.46 [facility] Comment on above: Order Comment: Speci men Type: BLOOD SPECIMENOrdering Facility: [facility] Address: [address] [place] [place] [address] Performed By: #### 5 7021-8 ####[facility]ATORYCLIA [id number] [address] [place] Eosinophils/100 WBC (Bld) 1.6 % Normal [facility] Comment on above: Order Comment: Speci men Type: BLOOD SPECIMENOrdering Facility: [facility] Address: [address] [place] [address] Performed By: #### 5 7021-8 ####[facility]ATORYCLIA [id number] [address] Erythrocyte distribution width (RBC) [Ratio] 17.9 % High 11.5-15.0 [facility] Comment on above: Order Comment: Speci men Type: BLOOD SPECIMENOrdering Facility: [facility] Address: [address] [place] [address] Performed By: #### 5 7021-8 ####[facility]ATORYCLIA [id number] [address] Hematocrit (Bld) [Volume fraction] 27.6 % Low 39.0-51.0 [facility] Comment on above: Order Comment: Speci men Type: BLOOD SPECIMENOrdering Facility: [facility] Address: [address] [place] [address] Performed By: #### 5 7021-8 ####[facility]ATORYCLIA [id number] [address] Hemoglobin (Bld) [Mass/Vol] 8.5 g/dL Low 13.0-17.0 [facility] Comment on above: Order Comment: Speci men Type: BLOOD SPECIMENOrdering Facility: [facility] Address: [address] [place] [address] Performed By: #### 5 7021-8 ####[facility]ATORYCLIA [id number] [address] IMMATURE GRAN % 0.6 % Normal [facility] Comment on above: Order Comment: Speci men Type: BLOOD SPECIMENOrdering Facility: [facility] Address: [address] [place] [address] Performed By: #### 5 7021-8 ####[facility]ATORYCLIA [id number] [address] IMMATURE GRAN ABS 0.07 k/uL Normal <0.10 [facility] Comment on above: Order Comment: Speci men Type: BLOOD SPECIMENOrdering Facility: [facility] Address: [address] [place] [address] Performed By: #### 5 7021-8 ####[facility]ORYCLIA [id number] [address] Lymphocytes (Bld) [#/Vol] 1.81 10*3/uL Normal 1.00-4.00 [facility] Comment on above: Order Comment: Speci men Type: BLOOD SPECIMENOrdering Facility: [facility] Address: [address] [place] [address] Performed By: #### 5 7021-8 ####[facility]ORYCLIA [id number] [address] Lymphocytes/100 WBC (Bld) 15.7 % Normal [facility] Comment on above: Order Comment: Speci men Type: BLOOD SPECIMENOrdering Facility: [facility] Address: [address] [place] [address] Performed By: #### 5 7021-8 ####[facility]ATORYCLIA [id number] [address] MCH (RBC) [Entitic mass] 28.6 pg Normal 26.0-34.0 [facility] Comment on above: Order Comment: Speci men Type: BLOOD SPECIMENOrdering Facility: [facility] Address: [address] [place] [address] Performed By: #### 5 7021-8 ####[facility]ATORYCLIA [id number] [address] MCHC (RBC) [Mass/Vol] 30.8 g/dL Normal 30.5-36.0 [facility] Comment on above: Order Comment: Speci men Type: BLOOD SPECIMENOrdering Facility: [facility] Address: [address] [place] [address] Performed By: #### 5 7021-8 ####[facility]ATORYCLIA [id number] [address] STATES OF [facility] MCV (RBC) [Entitic vol] 92.9 fL Normal 80.0-100.0 [facility] Comment on above: Order Comment: Speci men Type: BLOOD SPECIMENOrdering Facility: [facility] Address: [address] [place] [address] Performed By: #### 5 7021-8 ####[facility]ORYCLIA [id number] [address] Monocytes (Bld) [#/Vol] 0.63 10*3/uL Normal <0.87 [facility] Comment on above: Order Comment: Speci men Type: BLOOD SPECIMENOrdering Facility: [facility] Address: [address] [place] [address] Performed By: #### 5 7021-8 ####[facility]ORYCLIA [id number] [address] Monocytes/100 WBC (Bld) 5.5 % Normal [facility] Comment on above: Order Comment: Speci men Type: BLOOD SPECIMENOrdering Facility: [facility] Address: [address] [place] [address] Performed By: #### 5 7021-8 ####[facility]ATORYCLIA [id number] [address] [place] Neutrophils (Bld) [#/Vol] 8.78 10*3/uL High 1.45-7.50 [facility] Comment on above: Order Comment: Speci men Type: BLOOD SPECIMENOrdering Facility: [facility] Address: [address] [place] [address] Performed By: #### 5 7021-8 ####[facility]ATORYCLIA [id number] [address] [place] Neutrophils/100 WBC (Bld) 76.3 % Normal [facility] Comment on above: Order Comment: Speci men Type: BLOOD SPECIMENOrdering Facility: [facility] Address: [address] [address] Performed By: #### 5 7021-8 ####[facility]ATORYCLIA [id number] [address] [place] Nucleated RBC (Bld) [#/Vol] 10*3/uL Normal <0.01 [facility] Comment on above: Order Comment: Speci men Type: BLOOD SPECIMENOrdering Facility: [facility] Address: [address] [place] [address] Performed By: #### 5 7021-8 ####[facility]ATORYCLIA [id number] [address] [place] Nucleated RBC/100 WBC (Bld) [Ratio] 0.0 /100 WBC Normal [facility] Comment on above: Order Comment: Speci men Type: BLOOD SPECIMENOrdering Facility: [facility] Address: [address] [place] [address] Performed By: #### 5 7021-8 ####[facility]ATORYCLIA [id number] [address] [place] Platelet mean volume (Bld) [Entitic vol] 9.9 fL Normal 9.0-12.7 [facility] Comment on above: Order Comment: Speci men Type: BLOOD SPECIMENOrdering Facility: [facility] Address: [address] Performed By: #### 5 7021-8 ####[facility]ATORYCLIA [id number] [place] [address] [place] Platelets (Bld) [#/Vol] 230 10*3/uL Normal 150-400 [facility] Comment on above: Order Comment: Speci men Type: BLOOD SPECIMENOrdering Facility: [facility] Address: [address] Performed By: #### 5 7021-8 ####[facility]ORYCLIA [id number] [address] [place] RBC (Bld) [#/Vol] 2.97 10*6/uL Low 4.20-6.00 [facility] Comment on above: Order Comment: Speci men Type: BLOOD SPECIMENOrdering Facility: [facility] Address: [address] [place] [address] Performed By: #### 5 7021-8 ####[facility]ATORYCLIA [id number] [address] WBC (Bld) [#/Vol] 11.50 10*3/uL High 3.70-11.00 [facility] Comment on above: Order Comment: Speci men Type: BLOOD SPECIMENOrdering Facility: [facility] Address: [address] [place] [address] Performed By: #### 5 7021-8 ####[facility]ATORYCLIA [id number] [address] CONSULT PROGon 08-06-2021 CONSULT PROG Normal [facility] Magnesium SerPl-mCncon 08-06 Magnesium [Mass/Vol] 1.9 mg/dL Normal 1.7-2.3 [facility] Comment on above: Order Comment: Speci men Type: BLOOD SPECIMENOrdering Facility: [facility] Address: [address] [place] [address] Performed By: #### 2 4321-2, 2777-1, 78567-0 ####[facility]ATORYCLIA [id number] [address] [place] NURSING PROGon 08-06-2021 NURSING PROG Normal [facility] OPERATIVE NOon 08-06-2021 OPERATIVE NO Normal [facility] Phosphate SerPl-mCncon 08-06 Phosphate [Mass/Vol] 4.2 mg/dL Normal 2.7-4.8 [facility] Comment on above: Order Comment: Speci men Type: BLOOD SPECIMENOrdering Facility: [facility] Address: [address] [id number] Performed By: #### 2 4321-2, 2777-1, 98555-2 ####[facility]ATORYCLIA [id number] [place] [address] [place] ALLIED HEALTHon 08-05-2021 ALLIED HEALTH Normal [facility] ALLIED HEALTH Normal [facility] ANES PRE-OPon 08-05-2021 ANES PRE-OP Normal [facility] BRIEF OP NOTon 08-05-2021 BRIEF OP NOT Normal [facility] Bacteria Spec Resp Culton Bacteria identified Respiratory culture Nom (Unsp spec) CULTURE, RESPIRATORY: Few Normal respiratory chris present ORGANISM ID: 1 Few Proteus species Insignificant colony count. No further workup. GRAM STAIN: No organisms seen Few Polymorphonuclear leukocytes Few Epithelial cells Abnormal [facility] Comment on above: Performed By: #### 3 2355-0 ####[facility]ATORYCLIA [id number] [place] [address] [place] Bacteria Ur Culton Bacteria identified Cx Nom (U) CULTURE, URINE: No growth (<1,000 CFU/ml) Normal [facility] Comment on above: Performed By: #### 6 30-4 ####[facility]ATORYCLIA [id number] [place] [address] [place] Basic metabolic 2000 panelon 08-05-2021 Anion gap [Moles/Vol] 7 mmol/L Low 9-18 [facility] Comment on above: Order Comment: Speci men Type: BLOOD SPECIMENOrdering Facility: [facility] Address: [address] [address] Performed By: #### 2 4321-2 ####[facility]ATORYCLIA [id number] [place] [address] [place] Calcium [Mass/Vol] 9.5 mg/dL Normal 8.5-10.2 [facility] Comment on above: Order Comment: Speci men Type: BLOOD SPECIMENOrdering Facility: [facility] Address: [address] [address] Performed By: #### 2 4321-2 ####[facility]ATORYCLIA [id number] [address] [place] Chloride [Moles/Vol] 97 mmol/L Normal 97-105 [facility] Comment on above: Order Comment: Speci men Type: BLOOD SPECIMENOrdering Facility: [facility] Address: [address] [place] [address] Performed By: #### 2 4321-2 ####[facility]ATORYCLIA [id number] [address] [place] CO2 [Moles/Vol] 30 mmol/L Normal 22-30 [facility] Comment on above: Order Comment: Speci men Type: BLOOD SPECIMENOrdering Facility: [facility] Address: [address] [place] [address] Performed By: #### 2 4321-2 ####[facility]ATORYCLIA [id number] [address] OF [facility] Creatinine [Mass/Vol] 0.61 mg/dL Low 0.73-1.22 [facility] Comment on above: Order Comment: Speci men Type: BLOOD SPECIMENOrdering Facility: [facility] Address: [address] [place] [address] Performed By: #### 2 4321-2 ####[facility]ATORYCLIA [id number] [address] ESTIMATED GLOMERULAR FILTRATION RATE 104 mL/min/1.73m??? Normal >=60 [facility] Comment on above: Order Comment: Speci men Type: BLOOD SPECIMENOrdering Facility: [facility] Address: [address] [place] [address] Result Comment: Luzmaria mated Glomerular Filtration Rate [...] actual GFR. Performed By: #### 2 4321-2 ####[facility]ATORYCLIA [id number] [place] [address] [place] Glucose [Mass/Vol] 124 mg/dL High 74-99 [facility] Comment on above: Order Comment: Shira francia Type: BLOOD SPECIMENOrdering Facility: [facility] Address: [address] [place] [place] [address] Result Comment: The [employer] (ADA) provides guidance for cutoff [...] Standards of Medical Care in Diabetes 2016, [employer]. Diabetes Care. 2016.39(Suppl 1). Performed By: #### 2 4321-2 ####[facility]ATORYCLIA [id number] [place] [address] [place] Potassium [Moles/Vol] 4.9 mmol/L Normal 3.7-5.1 [facility] Comment on above: Order Comment: Shira francia Type: BLOOD SPECIMENOrdering Facility: [facility] Address: [address] [address] Performed By: #### 2 4321-2 ####[facility]ATORYCLIA [id number] [place] [address] [place] Sodium [Moles/Vol] 134 mmol/L Low 136-144 [facility] Comment on above: Order Comment: Shira francia Type: BLOOD SPECIMENOrdering Facility: [facility] Address: [address] [address] Performed By: #### 2 4321-2 ####[facility]ATORYCLIA [id number] [address] STATES [facility] Urea nitrogen [Mass/Vol] 40 mg/dL High 9-24 [facility] Comment on above: Order Comment: Speci men Type: BLOOD SPECIMENOrdering Facility: [facility] Address: [address] [place] [address] Performed By: #### 2 4321-2 ####[facility]ATORYCLIA [id number] [address] STATES OF [facility] CBC W Auto Differential pane l (Bld)on 08-05-2021 Basophils (Bld) [#/Vol] 0.04 10*3/uL Normal <0.11 [facility] Comment on above: Order Comment: Speci men Type: BLOOD SPECIMENOrdering Facility: [facility] Address: [address] [place] [address] Performed By: #### 5 7021-8 ####[facility]ATORYCLIA [id number] [address] STATES [facility] Basophils/100 WBC (Bld) 0.3 % Normal [facility] Comment on above: Order Comment: Speci men Type: BLOOD SPECIMENOrdering Facility: [facility] Address: [address] [place] [address] Performed By: #### 5 7021-8 ####[facility]ATORYCLIA [id number] [address] Differential cell count method Nom (Bld) Auto Normal [facility] Comment on above: Order Comment: Speci men Type: BLOOD SPECIMENOrdering Facility: [facility] Address: [address] [place] [address] Performed By: #### 5 7021-8 ####[facility]ATORYCLIA [id number] [address] STATES [facility] Eosinophils (Bld) [#/Vol] 0.42 10*3/uL Normal <0.46 [facility] Comment on above: Order Comment: Speci men Type: BLOOD SPECIMENOrdering Facility: [facility] Address: [address] [place] [address] Performed By: #### 5 7021-8 ####[facility]ATORYCLIA [id number] [address] Eosinophils/100 WBC (Bld) 3.6 % Normal [facility] Comment on above: Order Comment: Speci men Type: BLOOD SPECIMENOrdering Facility: [facility] Address: [address] [place] [address] Performed By: #### 5 7021-8 ####[facility]ATORYCLIA [id number] [address] Erythrocyte distribution width (RBC) [Ratio] 17.9 % High 11.5-15.0 [facility] Comment on above: Order Comment: Speci men Type: BLOOD SPECIMENOrdering Facility: [facility] Address: [address] [place] [address] Performed By: #### 5 7021-8 ####[facility]ATORYCLIA [id number] [address] Hematocrit (Bld) [Volume fraction] 30.8 % Low 39.0-51.0 [facility] Comment on above: Order Comment: Speci men Type: BLOOD SPECIMENOrdering Facility: [facility] Address: [address] [place] [address] Performed By: #### 5 7021-8 ####[facility]ATORYCLIA [id number] [address] Hemoglobin (Bld) [Mass/Vol] 9.6 g/dL Low 13.0-17.0 [facility] Comment on above: Order Comment: Speci men Type: BLOOD SPECIMENOrdering Facility: [facility] Address: [address] [place] [address] Performed By: #### 5 7021-8 ####[facility]ATORYCLIA [id number] [address] [place] IMMATURE GRAN % 0.5 % Normal [facility] Comment on above: Order Comment: Speci men Type: BLOOD SPECIMENOrdering Facility: [facility] Address: [address] [place] [address] Performed By: #### 5 7021-8 ####[facility]ATORYCLIA [id number] [address] [place] IMMATURE GRAN ABS 0.06 k/uL Normal <0.10 [facility] Comment on above: Order Comment: Speci men Type: BLOOD SPECIMENOrdering Facility: [facility] Address: [address] [place] [address] Performed By: #### 5 7021-8 ####[facility]ATORYCLIA [id number] [address] Lymphocytes (Bld) [#/Vol] 2.17 10*3/uL Normal 1.00-4.00 [facility] Comment on above: Order Comment: Speci men Type: BLOOD SPECIMENOrdering Facility: [facility] Address: [address] [place] [address] Performed By: #### 5 7021-8 ####[facility]ATORYCLIA [id number] [address] Lymphocytes/100 WBC (Bld) 18.7 % Normal [facility] Comment on above: Order Comment: Speci men Type: BLOOD SPECIMENOrdering Facility: [facility] Address: [address] [place] [address] Performed By: #### 5 7021-8 ####[facility]ATORYCLIA [id number] [address] STATES [facility] MCH (RBC) [Entitic mass] 28.9 pg Normal 26.0-34.0 [facility] Comment on above: Order Comment: Speci men Type: BLOOD SPECIMENOrdering Facility: [facility] Address: [address] [place] [address] Performed By: #### 5 7021-8 ####[facility]ATORYCLIA [id number] [address] MCHC (RBC) [Mass/Vol] 31.2 g/dL Normal 30.5-36.0 [facility] Comment on above: Order Comment: Speci men Type: BLOOD SPECIMENOrdering Facility: [facility] Address: [address] [place] [address] Performed By: #### 5 7021-8 ####[facility]ATORYCLIA [id number] [address] OF [facility] MCV (RBC) [Entitic vol] 92.8 fL Normal 80.0-100.0 [facility] Comment on above: Order Comment: Speci men Type: BLOOD SPECIMENOrdering Facility: [facility] Address: [address] [place] [address] Performed By: #### 5 7021-8 ####[facility]ATORYCLIA [id number] [address] STATES [facility] Monocytes (Bld) [#/Vol] 0.71 10*3/uL Normal <0.87 [facility] Comment on above: Order Comment: Speci men Type: BLOOD SPECIMENOrdering Facility: [facility] Address: [address] [place] [address] Performed By: #### 5 7021-8 ####[facility]ATORYCLIA [id number] [address] Monocytes/100 WBC (Bld) 6.1 % Normal [facility] Comment on above: Order Comment: Speci men Type: BLOOD SPECIMENOrdering Facility: [facility] Address: [address] [place] [address] Performed By: #### 5 7021-8 ####[facility]ORYCLIA [id number] [address] [place] Neutrophils (Bld) [#/Vol] 8.19 10*3/uL High 1.45-7.50 [facility] Comment on above: Order Comment: Speci men Type: BLOOD SPECIMENOrdering Facility: [facility] Address: [address] [place] [address] Performed By: #### 5 7021-8 ####[facility]ORYCLIA [id number] [address] Neutrophils/100 WBC (Bld) 70.8 % Normal [facility] Comment on above: Order Comment: Speci men Type: BLOOD SPECIMENOrdering Facility: [facility] Address: [address] [place] [address] Performed By: #### 5 7021-8 ####[facility]ORYCLIA [id number] [address] [place] Nucleated RBC (Bld) [#/Vol] 10*3/uL Normal <0.01 [facility] Comment on above: Order Comment: Speci men Type: BLOOD SPECIMENOrdering Facility: [facility] Address: [address] [place] [address] Performed By: #### 5 7021-8 ####[facility]ATORYCLIA [id number] [address] Nucleated RBC/100 WBC (Bld) [Ratio] 0.0 /100 WBC Normal [facility] Comment on above: Order Comment: Speci men Type: BLOOD SPECIMENOrdering Facility: [facility] Address: [address] [place] [address] Performed By: #### 5 7021-8 ####[facility]ATORYCLIA [id number] [address] [place] Platelet mean volume (Bld) [Entitic vol] 9.6 fL Normal 9.0-12.7 [facility] Comment on above: Order Comment: Speci men Type: BLOOD SPECIMENOrdering Facility: [facility] Address: [address] [place] [address] Performed By: #### 5 7021-8 ####[facility]ATORYCLIA [id number] [address] [place] Platelets (Bld) [#/Vol] 339 10*3/uL Normal 150-400 [facility] Comment on above: Order Comment: Speci men Type: BLOOD SPECIMENOrdering Facility: [facility] Address: [address] [place] [address] Performed By: #### 5 7021-8 ####[facility]ORYCLIA [id number] [address] STATES OF [facility] RBC (Bld) [#/Vol] 3.32 10*6/uL Low 4.20-6.00 [facility] Comment on above: Order Comment: Speci men Type: BLOOD SPECIMENOrdering Facility: [facility] Address: [address] [place] [address] Performed By: #### 5 7021-8 ####[facility]ATORYCLIA [id number] [address] WBC (Bld) [#/Vol] 11.59 10*3/uL High 3.70-11.00 [facility] Comment on above: Order Comment: Speci men Type: BLOOD SPECIMENOrdering Facility: [facility] Address: [address] [place] [address] Performed By: #### 5 7021-8 ####[facility]ATORYCLIA [id number] [address] [place] CT BRAIN WO IVCONon 08-06-19 CT BRAIN WO IVCON Normal [facility] Magnesium SerPl-mCncon 08-05 Magnesium [Mass/Vol] 2.2 mg/dL Normal 1.7-2.3 [facility] Comment on above: Order Comment: Speci men Type: BLOOD SPECIMENOrdering Facility: [facility] Address: [address] [place] [address] Performed By: #### 1 9123-9, 2777-1 ####[facility]ATORYCLIA [id number] [address] NURSING PROGon 08-05-2021 NURSING PROG Normal [facility] NURSING PROG Normal [facility] NUTRITIONon 08-05-2021 NUTRITION Normal [facility] OPERATIVE NOon 08-05-2021 OPERATIVE NO Normal [facility] Phosphate SerPl-mCncon 08-05 Phosphate [Mass/Vol] 4.6 mg/dL Normal 2.7-4.8 [facility] Comment on above: Order Comment: Speci men Type: BLOOD SPECIMENOrdering Facility: [facility] Address: [address] [place] [address] Performed By: #### 1 9123-9, 2777-1 ####[facility]ATORYCLIA [id number] [address] OF [facility] THERAPY NTon 08-05-2021 THERAPY NT Normal [facility] THERAPY NT Normal [facility] Urinalysis complete panel (U )on 08-05-2021 Bilirubin Ql (U) Negative Normal Negative [facility] Comment on above: Order Comment: Speci men Type: URINE SPECIMENOrdering Facility: [facility] Address: [address] [place] [address] Performed By: #### 2 4356-8 ####[facility]ENTERCLIA [id number] [address] [place] Clarity (Unsp spec) Clear Normal Clear [facility] Comment on above: Order Comment: Speci men Type: URINE SPECIMENOrdering Facility: [facility] Address: [address] [place] [address] Performed By: #### 2 4356-8 ####[facility]ENTERCLIA [id number] [address] [place] Color (U) Light Yellow Normal yellow [facility] Comment on above: Order Comment: Speci men Type: URINE SPECIMENOrdering Facility: [facility] Address: [address] [place] [address] Performed By: #### 2 4356-8 ####[facility]ATORYCLIA [id number] [address] Epithelial cells LM.HPF (Urine sed) [#/Area] Few Abnormal None Seen [facility] Comment on above: Order Comment: Speci men Type: URINE SPECIMENOrdering Facility: [facility] Address: [address] [place] [address] Performed By: #### 2 4356-8 ####[facility]ATORYCLIA [id number] [address] Glucose Test strip (U) [Mass/Vol] Negative Normal Negative [facility] Comment on above: Order Comment: Speci men Type: URINE SPECIMENOrdering Facility: [facility] Address: [address] [place] [address] Performed By: #### 2 4356-8 ####[facility]ATORYCLIA [id number] [address] Hemoglobin Ql (U) Negative Normal Negative [facility] Comment on above: Order Comment: Speci men Type: URINE SPECIMENOrdering Facility: [facility] Address: [address] [place] [address] Performed By: #### 2 4356-8 ####[facility]ATORYCLIA [id number] [address] OF [facility] Hyaline casts (Urine sed) [#/Area] 1-3 /LPF Abnormal 0 /LPF [facility] Comment on above: Order Comment: Speci men Type: URINE SPECIMENOrdering Facility: [facility] Address: [address] [place] [address] Performed By: #### 2 4356-8 ####[facility]ATORYCLIA [id number] [address] STATES [facility] Ketones Ql (U) Negative Normal Negative [facility] Comment on above: Order Comment: Speci men Type: URINE SPECIMENOrdering Facility: [facility] Address: [address] [place] [address] Performed By: #### 2 4356-8 ####[facility]ATORYCLIA [id number] [address] [place] Leukocyte esterase Test strip Ql (U) Negative Normal Negative [facility] Comment on above: Order Comment: Speci men Type: URINE SPECIMENOrdering Facility: [facility] Address: [address] [place] [address] Performed By: #### 2 4356-8 ####[facility]ORYCLIA [id number] [address] Nitrite Ql (U) Negative Normal Negative [facility] Comment on above: Order Comment: Speci men Type: URINE SPECIMENOrdering Facility: [facility] Address: [address] [place] [address] Performed By: #### 2 4356-8 ####[facility]ORYCLIA [id number] [address] pH (U) 6.0 [pH] Normal 5.0-8.0 [facility] Comment on above: Order Comment: Speci men Type: URINE SPECIMENOrdering Facility: [facility] Address: [address] [place] [address] Performed By: #### 2 4356-8 ####[facility]ORYCLIA [id number] [address] Protein (U) [Mass/Vol] Negative Normal Negative [facility] Comment on above: Order Comment: Speci men Type: URINE SPECIMENOrdering Facility: [facility] Address: [address] [place] [address] Performed By: #### 2 4356-8 ####[facility]ATORYCLIA [id number] [address] [place] RBC LM.HPF (Urine sed) [#/Area] 0-3 /HPF Normal 0-3 /HPF [facility] Comment on above: Order Comment: Speci men Type: URINE SPECIMENOrdering Facility: [facility] Address: [address] [place] [address] Performed By: #### 2 4356-8 ####[facility]ATORYCLIA [id number] [address] [place] Specific gravity (U) [Rel density] 1.015 Normal 1.005-1.030 [facility] Comment on above: Order Comment: Speci men Type: URINE SPECIMENOrdering Facility: [facility] Address: [address] [place] [address] Performed By: #### 2 4356-8 ####[facility]ATORYCLIA [id number] [address] [place] Urobilinogen Ql (U) Normal Normal Negative [facility] Comment on above: Order Comment: Speci men Type: URINE SPECIMENOrdering Facility: [facility] Address: [address] [place] [address] Performed By: #### 2 4356-8 ####[facility]ATORYCLIA [id number] [address] [place] WBC LM.HPF (Urine sed) [#/Area] 0-5 /HPF Normal 0-5 /HPF [facility] Comment on above: Order Comment: Speci men Type: URINE SPECIMENOrdering Facility: [facility] Address: [address] [place] [address] Performed By: #### 2 4356-8 ####[facility]ATORYCLIA [id number] [address] [place] XR ABDOMEN 1V SUPINEon 08-05 XR ABDOMEN 1V SUPINE Normal [facility] XR CHEST 1V FRONTALon 2021 XR CHEST 1V FRONTAL Normal [facility] XR CHEST 1V FRONTAL Normal [facility] XR NECK SOFT TISSUE 2V AP/LA Ton 08-05-2021 XR NECK SOFT TISSUE 2V AP/LAT Normal [facility] XR SKULL 2V AP/LATon 022 XR SKULL 2V AP/LAT Normal [facility] ALLIED HEALTHon 08-04-2021 ALLIED HEALTH Normal [facility] Bacteria Bld Culton 08-05-19 22 Bacteria identified Cx Nom (Bld) CULTURE, BLOOD: No growth 5 days Normal [facility] Comment on above: Performed By: #### 6 00-7 ####[facility]ATORYCLIA [id number] [address] Bacteria identified Cx Nom (Bld) CULTURE, BLOOD: No growth 5 days Normal [facility] Comment on above: Performed By: #### 6 00-7 ####[facility]ATORYCLIA [id number] [address] [place] CBC W Auto Differential pane l (Bld)on 08-04-2021 Basophils (Bld) [#/Vol] 0.05 10*3/uL Normal <0.11 [facility] Comment on above: Order Comment: Speci men Type: BLOOD SPECIMENOrdering Facility: [facility] Address: [address] [place] [address] Performed By: #### 5 7021-8 ####[facility]ATORYCLIA [id number] [address] Basophils/100 WBC (Bld) 0.4 % Normal [facility] Comment on above: Order Comment: Speci men Type: BLOOD SPECIMENOrdering Facility: [facility] Address: [address] [place] [address] Performed By: #### 5 7021-8 ####[facility]ATORYCLIA [id number] [address] Differential cell count method Nom (Bld) Auto Normal [facility] Comment on above: Order Comment: Speci men Type: BLOOD SPECIMENOrdering Facility: [facility] Address: [address] [address] Performed By: #### 5 7021-8 ####[facility]ATORYCLIA [id number] [address] [place] Eosinophils (Bld) [#/Vol] 0.21 10*3/uL Normal <0.46 [facility] Comment on above: Order Comment: Speci men Type: BLOOD SPECIMENOrdering Facility: [facility] Address: [address] [address] Performed By: #### 5 7021-8 ####[facility]ATORYCLIA [id number] [address] Eosinophils/100 WBC (Bld) 1.7 % Normal [facility] Comment on above: Order Comment: Speci men Type: BLOOD SPECIMENOrdering Facility: [facility] Address: [address] [place] [address] Performed By: #### 5 7021-8 ####[facility]ATORYCLIA [id number] [address] Erythrocyte distribution width (RBC) [Ratio] 18.1 % High 11.5-15.0 [facility] Comment on above: Order Comment: Speci men Type: BLOOD SPECIMENOrdering Facility: [facility] Address: [address] [place] [address] Performed By: #### 5 7021-8 ####[facility]ATORYCLIA [id number] [address] Hematocrit (Bld) [Volume fraction] 32.0 % Low 39.0-51.0 [facility] Comment on above: Order Comment: Speci men Type: BLOOD SPECIMENOrdering Facility: [facility] Address: [address] [place] [address] Performed By: #### 5 7021-8 ####[facility]ATORYCLIA [id number] [address] [place] Hemoglobin (Bld) [Mass/Vol] 10.0 g/dL Low 13.0-17.0 [facility] Comment on above: Order Comment: Speci men Type: BLOOD SPECIMENOrdering Facility: [facility] Address: [address] [place] [address] Performed By: #### 5 7021-8 ####[facility]ATORYCLIA [id number] [address] IMMATURE GRAN % 0.6 % Normal [facility] Comment on above: Order Comment: Speci men Type: BLOOD SPECIMENOrdering Facility: [facility] Address: [address] [place] [address] Performed By: #### 5 7021-8 ####[facility]ORYCLIA [id number] [address] IMMATURE GRAN ABS 0.08 k/uL Normal <0.10 [facility] Comment on above: Order Comment: Speci men Type: BLOOD SPECIMENOrdering Facility: [facility] Address: [address] [place] [address] Performed By: #### 5 7021-8 ####[facility]ATORYCLIA [id number] [address] Lymphocytes (Bld) [#/Vol] 2.55 10*3/uL Normal 1.00-4.00 [facility] Comment on above: Order Comment: Speci men Type: BLOOD SPECIMENOrdering Facility: [facility] Address: [address] [place] [address] Performed By: #### 5 7021-8 ####[facility]ORYCLIA [id number] [address] Lymphocytes/100 WBC (Bld) 20.5 % Normal [facility] Comment on above: Order Comment: Speci men Type: BLOOD SPECIMENOrdering Facility: [facility] Address: [address] [place] [address] Performed By: #### 5 7021-8 ####[facility]ATORYCLIA [id number] [address] MCH (RBC) [Entitic mass] 28.9 pg Normal 26.0-34.0 [facility] Comment on above: Order Comment: Speci men Type: BLOOD SPECIMENOrdering Facility: [facility] Address: [address] [place] [address] Performed By: #### 5 7021-8 ####[facility]ORYCLIA [id number] [address] MCHC (RBC) [Mass/Vol] 31.3 g/dL Normal 30.5-36.0 [facility] Comment on above: Order Comment: Speci men Type: BLOOD SPECIMENOrdering Facility: [facility] Address: [address] [place] [address] Performed By: #### 5 7021-8 ####[facility]ATORYCLIA [id number] [address] MCV (RBC) [Entitic vol] 92.5 fL Normal 80.0-100.0 [facility] Comment on above: Order Comment: Speci men Type: BLOOD SPECIMENOrdering Facility: [facility] Address: [address] [place] [address] Performed By: #### 5 7021-8 ####[facility]ATORYCLIA [id number] [address] [place] Monocytes (Bld) [#/Vol] 0.85 10*3/uL Normal <0.87 [facility] Comment on above: Order Comment: Speci men Type: BLOOD SPECIMENOrdering Facility: [facility] Address: [address] [place] [address] Performed By: #### 5 7021-8 ####[facility]ORYCLIA [id number] [address] STATES [facility] Monocytes/100 WBC (Bld) 6.8 % Normal [facility] Comment on above: Order Comment: Speci men Type: BLOOD SPECIMENOrdering Facility: [facility] Address: [address] [place] [address] Performed By: #### 5 7021-8 ####[facility]ORYCLIA [id number] [address] [place] Neutrophils (Bld) [#/Vol] 8.68 10*3/uL High 1.45-7.50 [facility] Comment on above: Order Comment: Speci men Type: BLOOD SPECIMENOrdering Facility: [facility] Address: [address] [place] [address] Performed By: #### 5 7021-8 ####[facility]ORATORYCLIA [id number] [place] [address] [place] Neutrophils/100 WBC (Bld) 70.0 % Normal [facility] Comment on above: Order Comment: Speci men Type: BLOOD SPECIMENOrdering Facility: [facility] Address: [address] [address] Performed By: #### 5 7021-8 ####[facility]ORYCLIA [id number] [address] [place] Nucleated RBC (Bld) [#/Vol] 10*3/uL Normal <0.01 [facility] Comment on above: Order Comment: Speci men Type: BLOOD SPECIMENOrdering Facility: [facility] Address: [address] [place] [address] Performed By: #### 5 7021-8 ####[facility]ORYCLIA [id number] [address] Nucleated RBC/100 WBC (Bld) [Ratio] 0.0 /100 WBC Normal [facility] Comment on above: Order Comment: Speci men Type: BLOOD SPECIMENOrdering Facility: [facility] Address: [address] [place] [address] Performed By: #### 5 7021-8 ####[facility]ATORYCLIA [id number] [address] Platelet mean volume (Bld) [Entitic vol] 10.0 fL Normal 9.0-12.7 [facility] Comment on above: Order Comment: Speci men Type: BLOOD SPECIMENOrdering Facility: [facility] Address: [address] Performed By: #### 5 7021-8 ####[facility]ATORYCLIA [id number] [address] [place] Platelets (Bld) [#/Vol] 393 10*3/uL Normal 150-400 [facility] Comment on above: Order Comment: Speci men Type: BLOOD SPECIMENOrdering Facility: [facility] Address: [address] [place], [place] [address] Performed By: #### 5 7021-8 ####[facility]ORATORYCLIA [id number] [place] [address] [place] RBC (Bld) [#/Vol] 3.46 10*6/uL Low 4.20-6.00 [facility] Comment on above: Order Comment: Speci men Type: BLOOD SPECIMENOrdering Facility: [facility] Address: [address] [place] [address] Performed By: #### 5 7021-8 ####[facility]ORYCLIA [id number] [address] [place] WBC (Bld) [#/Vol] 12.42 10*3/uL High 3.70-11.00 [facility] Comment on above: Order Comment: Speci men Type: BLOOD SPECIMENOrdering Facility: [facility] Address: [address] [place] [address] Performed By: #### 5 7021-8 ####[facility]ORYCLIA [id number] [address] [place] CT BRAIN WO IVCONon 08-05-[address] BRAIN WO IVCON Normal [facility] Lactate (Bld) [Moles/Vol]on 08-04-2021 Lactate [Moles/Vol] 1.4 mmol/L Normal 0.5-2.2 [facility] Comment on above: Order Comment: Speci men Type: BLOOD SPECIMENOrdering Facility: [facility] Address: [address] [place] [address] Performed By: #### 3 [id number] ####[facility] LABORATORYCLIA [id number] [address] PROCALCITONIN (LAB)on 2021 Procalcitonin [Mass/Vol] 0.08 ng/mL Normal <0.09 [facility] Comment on above: Order Comment: Speci men Type: BLOOD SPECIMENOrdering Facility: [facility] Address: [address] [place], [place] [address] Result Comment: For a guided interpretation of test results, please visit the Change in Procalcitonin Calculator, [email or web address]. Performed By: #### P ROCAL ####[facility] LABORATORYCLIA [id number] [address] Prealbumin [Mass/Vol]on 07-07 Prealbumin Nephelometry [Mass/Vol] 35 mg/dL Normal 17-36 [facility] Comment on above: Order Comment: Speci men Type: BLOOD SPECIMENOrdering Facility: [facility] Address: [address] [place] [address] Performed By: #### 1 4338-8 ####[facility] LABORATORYCLIA [id number] [address] OF [place] SARS-CoV-2 RNA Resp Ql MEGAN+p robeon 08-04-2021 SARS-CoV-2 (COVID-19) RNA MEGAN+probe Ql (Resp) COVID 19 RESULT: SARS-CoV-2 (Agent of COVID-19) Not Detected by RT-PCR or equivalent method. This test has been authorized by FDA under an Emergency Use Authorization (EUA). Normal [facility] Comment on above: Performed By: #### 9 4500-6 ####[facility]ORATORYCLIA [id number] [address] OF [facility] TYPE AND SCREENon 08-04-2021 ABO O Normal [facility] Comment on above: Order Comment: Speci men Type: BLOOD SPECIMENOrdering Facility: [facility] Address: [address] [place] [address] Performed By: #### T SCR ####[facility] BANKCLIA [id number] [address] HISTORICAL AB SCR STATUS Negative Normal [facility] Comment on above: Order Comment: Speci men Type: BLOOD SPECIMENOrdering Facility: [facility] Address: [address] [place] [address] Performed By: #### T SCR ####[facility] B[facility] BANKCLIA [id number] [address] Rh Nom (Bld) Positive Normal [facility] Comment on above: Order Comment: Speci men Type: BLOOD SPECIMENOrdering Facility: [facility] Address: [address] [place] [address] Performed By: #### T SCR ####[facility] BLO[facility] BANKCLIA [id number] [address] OF [facility] TYPE AND SCREEN EXPIRATION 08/07/2021 23:59 Normal [facility] Comment on above: Order Comment: Speci men Type: BLOOD SPECIMENOrdering Facility: [facility] Address: [address] [place] [address] Performed By: #### T SCR ####[facility] BLO[facility] BANKCLIA [id number] [address] [place] aPTT PPPon 08-04-2021 aPTT Coag (PPP) [Time] 51.8 s High 23.0-32.4 [facility] Comment on above: Order Comment: Speci men Type: BLOOD SPECIMENOrdering Facility: [facility] Address: [address] [place] [address] Performed By: #### 1 4979-9 ####[facility] LABORATORYCLIA [id number] [address] [place] Basic metabolic 2000 panelon 08-03-2021 Anion gap [Moles/Vol] 9 mmol/L Normal 9-18 [facility] Comment on above: Order Comment: Speci men Type: BLOOD SPECIMENOrdering Facility: [facility] Address: [address] [place] [address] Performed By: #### 2 4321-2, 97364-2, 2777-1 ####[facility] LABORATORYCLIA [id number] [address] STATES [facility] Calcium [Mass/Vol] 9.3 mg/dL Normal 8.5-10.2 [facility] Comment on above: Order Comment: Speci men Type: BLOOD SPECIMENOrdering Facility: [facility] Address: [address] [place], [place] [address] Performed By: #### 2 4321-2, , 2776-05 ####[facility] LABORATORYCLIA [id number] [place] [address] [place] Chloride [Moles/Vol] 97 mmol/L Normal 97-105 [facility] Comment on above: Order Comment: Speci men Type: BLOOD SPECIMENOrdering Facility: [facility] Address: [address] [place] [address] Performed By: #### 2 4321-2, , 2776-05 ####[facility] LABORATORYCLIA [id number] [address] [place] CO2 [Moles/Vol] 27 mmol/L Normal 22-30 [facility] Comment on above: Order Comment: Speci men Type: BLOOD SPECIMENOrdering Facility: [facility] Address: [address] [place] [address] Performed By: #### 2 4321-2, , 2776-05 ####[facility] LABORATORYCLIA [id number] [address] STATES OF [facility] Creatinine [Mass/Vol] 0.63 mg/dL Low 0.73-1.22 [facility] Comment on above: Order Comment: Speci men Type: BLOOD SPECIMENOrdering Facility: [facility] Address: [address] [place] [address] Performed By: #### 2 4321-2, , 2776-05 ####[facility] LABORATORYCLIA [id number] [address] OF [facility] ESTIMATED GLOMERULAR FILTRATION RATE 103 mL/min/1.73m??? Normal >=60 [facility] Comment on above: Order Comment: Speci men Type: BLOOD SPECIMENOrdering Facility: [facility] Address: [address] [place] [address] Result Comment: Luzmaria mated Glomerular Filtration Rate [...] Performed By: #### 2 4321-2, , 2776-05 ####[facility] LABORATORYCLIA [id number] [place] [address] [place] Glucose [Mass/Vol] 136 mg/dL High 74-99 [facility] Comment on above: Order Comment: Shira feldman Type: BLOOD SPECIMENOrdering Facility: [facility] Address: [address] [place] [id number] Result Comment: The [place] [employer] (ADA) provides guidance for cutoff [...] Standards of Medical Care in Diabetes 2016, [employer]. Diabetes Care. 2016.39(Suppl 1). Performed By: #### 2 4321-2, , 2776-05 ####[facility] LABORATORYCLIA [id number] [place] [address] [place] Potassium [Moles/Vol] 4.1 mmol/L Normal 3.7-5.1 [facility] Comment on above: Order Comment: Shira feldman Type: BLOOD SPECIMENOrdering Facility: [facility] Address: [address] [place] [address] Performed By: #### 2 4321-2, , 2776-05 ####[facility] LABORATORYCLIA [id number] [place] [address] [place] Sodium [Moles/Vol] 133 mmol/L Low 136-144 [facility] Comment on above: Order Comment: Speci men Type: BLOOD SPECIMENOrdering Facility: [facility] Address: [address] [place] [address] Performed By: #### 2 4321-2, , 2776-05 ####[facility] LABORATORYCLIA [id number] [address] STATES OF [facility] Urea nitrogen [Mass/Vol] 40 mg/dL High 9-24 [facility] Comment on above: Order Comment: Speci men Type: BLOOD SPECIMENOrdering Facility: [facility] Address: [address] [place] [address] Performed By: #### 2 4321-2, , 2776-05 ####[facility] LABORATORYCLIA [id number] [address] [place] CASE MANAGEMon 08-03-2021 CASE MANAGEM Normal [facility] CBC W Auto Differential pane l (Bld)on 08-03-2021 Basophils (Bld) [#/Vol] 0.06 10*3/uL Normal <0.11 [facility] Comment on above: Order Comment: Speci men Type: BLOOD SPECIMENOrdering Facility: [facility] Address: [address] [place] [address] Performed By: #### 5 7021-8 ####[facility] LABORATORYCLIA [id number] [address] [place] Basophils/100 WBC (Bld) 0.5 % Normal [facility] Comment on above: Order Comment: Speci men Type: BLOOD SPECIMENOrdering Facility: [facility] Address: [address] [place] [address] Performed By: #### 5 7021-8 ####[facility] LABORATORYCLIA [id number] [address] [place] Differential cell count method Nom (Bld) Auto Normal [facility] Comment on above: Order Comment: Speci men Type: BLOOD SPECIMENOrdering Facility: [facility] Address: [address] [place] [place] [address] Performed By: #### 5 7021-8 ####[facility] LABORATORYCLIA [id number] [address] Eosinophils (Bld) [#/Vol] 0.23 10*3/uL Normal <0.46 [facility] Comment on above: Order Comment: Speci men Type: BLOOD SPECIMENOrdering Facility: [facility] Address: [address] [place] [address] Performed By: #### 5 7021-8 ####[facility] LABORATORYCLIA [id number] [address] Eosinophils/100 WBC (Bld) 1.8 % Normal [facility] Comment on above: Order Comment: Speci men Type: BLOOD SPECIMENOrdering Facility: [facility] Address: [address] [place] [address] Performed By: #### 5 7021-8 ####[facility] LABORATORYCLIA [id number] [address] Erythrocyte distribution width (RBC) [Ratio] 17.6 % High 11.5-15.0 [facility] Comment on above: Order Comment: Speci men Type: BLOOD SPECIMENOrdering Facility: [facility] Address: [address] [place] [address] Performed By: #### 5 7021-8 ####[facility] LABORATORYCLIA [id number] [address] Hematocrit (Bld) [Volume fraction] 30.7 % Low 39.0-51.0 [facility] Comment on above: Order Comment: Speci men Type: BLOOD SPECIMENOrdering Facility: [facility] Address: [address] [place] [address] Performed By: #### 5 7021-8 ####[facility] LABORATORYCLIA [id number] [address] Hemoglobin (Bld) [Mass/Vol] 9.3 g/dL Low 13.0-17.0 [facility] Comment on above: Order Comment: Speci men Type: BLOOD SPECIMENOrdering Facility: [facility] Address: [address] [place] [address] Performed By: #### 5 7021-8 ####[facility]ORATORYCLIA [id number] [address] OF [facility] IMMATURE GRAN % 0.6 % Normal [facility] Comment on above: Order Comment: Speci men Type: BLOOD SPECIMENOrdering Facility: [facility] Address: [address] [place] [address] Performed By: #### 5 7021-8 ####[facility]ORATORYCLIA [id number] [address] IMMATURE GRAN ABS 0.08 k/uL Normal <0.10 [facility] Comment on above: Order Comment: Speci men Type: BLOOD SPECIMENOrdering Facility: [facility] Address: [address] [place] [address] Performed By: #### 5 7021-8 ####[facility]ORATORYCLIA [id number] [place] [address] [place] Lymphocytes (Bld) [#/Vol] 2.45 10*3/uL Normal 1.00-4.00 [facility] Comment on above: Order Comment: Speci men Type: BLOOD SPECIMENOrdering Facility: [facility] Address: [address] [place] [address] Performed By: #### 5 7021-8 ####[facility]ORATORYCLIA [id number] [address] Lymphocytes/100 WBC (Bld) 19.7 % Normal [facility] Comment on above: Order Comment: Speci men Type: BLOOD SPECIMENOrdering Facility: [facility] Address: [address] [place] [address] Performed By: #### 5 7021-8 ####[facility]ORATORYCLIA [id number] [address] MCH (RBC) [Entitic mass] 28.2 pg Normal 26.0-34.0 [facility] Comment on above: Order Comment: Speci men Type: BLOOD SPECIMENOrdering Facility: [facility] Address: [address] [place] [address] Performed By: #### 5 7021-8 ####[facility] LABORATORYCLIA [id number] [address] [place] MCHC (RBC) [Mass/Vol] 30.3 g/dL Low 30.5-36.0 [facility] Comment on above: Order Comment: Speci men Type: BLOOD SPECIMENOrdering Facility: [facility] Address: [address] [place] [address] Performed By: #### 5 7021-8 ####[facility] LABORATORYCLIA [id number] [address] MCV (RBC) [Entitic vol] 93.0 fL Normal 80.0-100.0 [facility] Comment on above: Order Comment: Speci men Type: BLOOD SPECIMENOrdering Facility: [facility] Address: [address] [place] [address] Performed By: #### 5 7021-8 ####[facility] LABORATORYCLIA [id number] [address] Monocytes (Bld) [#/Vol] 0.72 10*3/uL Normal <0.87 [facility] Comment on above: Order Comment: Speci men Type: BLOOD SPECIMENOrdering Facility: [facility] Address: [address] [place] [place] [address] Performed By: #### 5 7021-8 ####[facility] LABORATORYCLIA [id number] [address] Monocytes/100 WBC (Bld) 5.8 % Normal [facility] Comment on above: Order Comment: Speci men Type: BLOOD SPECIMENOrdering Facility: [facility] Address: [address] [place] [address] Performed By: #### 5 7021-8 ####[facility] LABORATORYCLIA [id number] [address] [place] Neutrophils (Bld) [#/Vol] 8.92 10*3/uL High 1.45-7.50 [facility] Comment on above: Order Comment: Speci men Type: BLOOD SPECIMENOrdering Facility: [facility] Address: [address] [place] [address] Performed By: #### 5 7021-8 ####[facility] LABORATORYCLIA [id number] [address] STATES [facility] Neutrophils/100 WBC (Bld) 71.6 % Normal [facility] Comment on above: Order Comment: Speci men Type: BLOOD SPECIMENOrdering Facility: [facility] Address: [address] [place] [address] Performed By: #### 5 7021-8 ####[facility] LABORATORYCLIA [id number] [address] [place] Nucleated RBC (Bld) [#/Vol] 10*3/uL Normal <0.01 [facility] Comment on above: Order Comment: Speci men Type: BLOOD SPECIMENOrdering Facility: [facility] Address: [address] [place] [address] Performed By: #### 5 7021-8 ####[facility] LABORATORYCLIA [id number] [address] [place] Nucleated RBC/100 WBC (Bld) [Ratio] 0.0 /100 WBC Normal [facility] Comment on above: Order Comment: Speci men Type: BLOOD SPECIMENOrdering Facility: [facility] Address: [address] [place] [address] Performed By: #### 5 7021-8 ####[facility] LABORATORYCLIA [id number] [address] [place] Platelet mean volume (Bld) [Entitic vol] 10.2 fL Normal 9.0-12.7 [facility] Comment on above: Order Comment: Speci men Type: BLOOD SPECIMENOrdering Facility: [facility] Address: [address] [place] [address] Performed By: #### 5 7021-8 ####[facility] LABORATORYCLIA [id number] [address] OF [facility] Platelets (Bld) [#/Vol] 352 10*3/uL Normal 150-400 [facility] Comment on above: Order Comment: Speci men Type: BLOOD SPECIMENOrdering Facility: [facility] Address: [address] [place] [address] Performed By: #### 5 7021-8 ####[facility] LABORATORYCLIA [id number] [address] STATES OF [facility] RBC (Bld) [#/Vol] 3.30 10*6/uL Low 4.20-6.00 [facility] Comment on above: Order Comment: Speci men Type: BLOOD SPECIMENOrdering Facility: [facility] Address: [address] [place] [address] Performed By: #### 5 7021-8 ####[facility] LABORATORYCLIA [id number] [address] OF [facility] WBC (Bld) [#/Vol] 12.46 10*3/uL High 3.70-11.00 [facility] Comment on above: Order Comment: Speci men Type: BLOOD SPECIMENOrdering Facility: [facility] Address: [address] [place] [address] Performed By: #### 5 7021-8 ####[facility] LABORATORYCLIA [id number] [address] OF [facility] CONSULT PROGon 08-03-2021 CONSULT PROG Normal [facility] Magnesium SerPl-mCncon 08-03 Magnesium [Mass/Vol] 2.2 mg/dL Normal 1.7-2.3 [facility] Comment on above: Order Comment: Speci men Type: BLOOD SPECIMENOrdering Facility: [facility] Address: [address] [place] [address] Performed By: #### 2 4321-2, 40872-9, 2777-1 ####[facility] LABORATORYCLIA [id number] [address] STATES OF [facility] NURSING PROGon 08-03-2021 NURSING PROG Normal [facility] Phosphate SerPl-mCncon 08-03 Phosphate [Mass/Vol] 4.2 mg/dL Normal 2.7-4.8 [facility] Comment on above: Order Comment: Speci men Type: BLOOD SPECIMENOrdering Facility: [facility] Address: [address] [place] [address] Performed By: #### 2 4321-2, 48351-6, 2777 ####[facility] LABORATORYCLIA [id number] [address] OF [facility] aPTT PPPon 08-03-2021 aPTT Coag (PPP) [Time] 50.0 s High 23.0-32.4 [facility] Comment on above: Order Comment: Speci men Type: BLOOD SPECIMENOrdering Facility: [facility] Address: [address] [place] [address] Performed By: #### 1 4979-9 ####[facility] LABORATORYCLIA [id number] [address] STATES OF [facility] CBC W Auto Differential pane l (Bld)on 08-02-2021 Basophils (Bld) [#/Vol] 10*3/uL Normal <0.11 [facility] Comment on above: Order Comment: Speci men Type: BLOOD SPECIMENOrdering Facility: [facility] Address: [address] [place] [address] Performed By: #### 5 7021-8 ####[facility] LABORATORYCLIA [id number] [address] STATES [facility] Basophils/100 WBC (Bld) 0.2 % Normal [facility] Comment on above: Order Comment: Speci men Type: BLOOD SPECIMENOrdering Facility: [facility] Address: [address] [place] [address] Performed By: #### 5 7021-8 ####[facility] LABORATORYCLIA [id number] [address] Differential cell count method Nom (Bld) Auto Normal [facility] Comment on above: Order Comment: Speci men Type: BLOOD SPECIMENOrdering Facility: [facility] Address: [address] [place] [address] Performed By: #### 5 7021-8 ####[facility] LABORATORYCLIA [id number] [address] STATES OF [facility] Eosinophils (Bld) [#/Vol] 10*3/uL Normal <0.46 [facility] Comment on above: Order Comment: Speci men Type: BLOOD SPECIMENOrdering Facility: [facility] Address: [address] [place] [address] Performed By: #### 5 7021-8 ####[facility] LABORATORYCLIA [id number] [address] Eosinophils/100 WBC (Bld) 0.0 % Normal [facility] Comment on above: Order Comment: Speci men Type: BLOOD SPECIMENOrdering Facility: [facility] Address: [address] [place] [address] Performed By: #### 5 7021-8 ####[facility] LABORATORYCLIA [id number] [address] Erythrocyte distribution width (RBC) [Ratio] 17.3 % High 11.5-15.0 [facility] Comment on above: Order Comment: Speci men Type: BLOOD SPECIMENOrdering Facility: [facility] Address: [address] [place] [address] Performed By: #### 5 7021-8 ####[facility] LABORATORYCLIA [id number] [address] [place] Hematocrit (Bld) [Volume fraction] 30.8 % Low 39.0-51.0 [facility] Comment on above: Order Comment: Speci men Type: BLOOD SPECIMENOrdering Facility: [facility] Address: [address] [place] [address] Performed By: #### 5 7021-8 ####[facility] LABORATORYCLIA [id number] [address] STATES OF [facility] Hemoglobin (Bld) [Mass/Vol] 9.7 g/dL Low 13.0-17.0 [facility] Comment on above: Order Comment: Speci men Type: BLOOD SPECIMENOrdering Facility: [facility] Address: [address] [place] [address] Performed By: #### 5 7021-8 ####[facility] LABORATORYCLIA [id number] [address] IMMATURE GRAN % 0.5 % Normal [facility] Comment on above: Order Comment: Speci men Type: BLOOD SPECIMENOrdering Facility: [facility] Address: [address] [place] [address] Performed By: #### 5 7021-8 ####[facility] LABORATORYCLIA [id number] [address] IMMATURE GRAN ABS 0.07 k/uL Normal <0.10 [facility] Comment on above: Order Comment: Speci men Type: BLOOD SPECIMENOrdering Facility: [facility] Address: [address] [place] [address] Performed By: #### 5 7021-8 ####[facility]ORATORYCLIA [id number] [address] OF [facility] Lymphocytes (Bld) [#/Vol] 1.60 10*3/uL Normal 1.00-4.00 [facility] Comment on above: Order Comment: Speci men Type: BLOOD SPECIMENOrdering Facility: [facility] Address: [address] [place] [address] Performed By: #### 5 7021-8 ####[facility]ORATORYCLIA [id number] [address] Lymphocytes/100 WBC (Bld) 12.1 % Normal [facility] Comment on above: Order Comment: Speci men Type: BLOOD SPECIMENOrdering Facility: [facility] Address: [address] [place] [address] Performed By: #### 5 7021-8 ####[facility]ORATORYCLIA [id number] [address] MCH (RBC) [Entitic mass] 28.6 pg Normal 26.0-34.0 [facility] Comment on above: Order Comment: Speci men Type: BLOOD SPECIMENOrdering Facility: [facility] Address: [address] [place] [address] Performed By: #### 5 7021-8 ####[facility]ATORYCLIA [id number] [address] MCHC (RBC) [Mass/Vol] 31.5 g/dL Normal 30.5-36.0 [facility] Comment on above: Order Comment: Speci men Type: BLOOD SPECIMENOrdering Facility: [facility] Address: [address] [place] [address] Performed By: #### 5 7021-8 ####[facility]ORATORYCLIA [id number] [address] MCV (RBC) [Entitic vol] 90.9 fL Normal 80.0-100.0 [facility] Comment on above: Order Comment: Speci men Type: BLOOD SPECIMENOrdering Facility: [facility] Address: [address] [place] [place] [address] Performed By: #### 5 7021-8 ####[facility]ORATORYCLIA [id number] [address] Monocytes (Bld) [#/Vol] 0.39 10*3/uL Normal <0.87 [facility] Comment on above: Order Comment: Speci men Type: BLOOD SPECIMENOrdering Facility: [facility] Address: [address] [place] [address] Performed By: #### 5 7021-8 ####[facility]ATORYCLIA [id number] [address] [place] Monocytes/100 WBC (Bld) 3.0 % Normal [facility] Comment on above: Order Comment: Speci men Type: BLOOD SPECIMENOrdering Facility: [facility] Address: [address] [place] [address] Performed By: #### 5 7021-8 ####[facility]ORATORYCLIA [id number] [place] [address] [place] Neutrophils (Bld) [#/Vol] 11.09 10*3/uL High 1.45-7.50 [facility] Comment on above: Order Comment: Speci men Type: BLOOD SPECIMENOrdering Facility: [facility] Address: [address] [place] [address] Performed By: #### 5 7021-8 ####[facility] LABORATORYCLIA [id number] [address] Neutrophils/100 WBC (Bld) 84.2 % Normal [facility] Comment on above: Order Comment: Speci men Type: BLOOD SPECIMENOrdering Facility: [facility] Address: [address] [place] [address] Performed By: #### 5 7021-8 ####[facility] LABORATORYCLIA [id number] [address] [place] Nucleated RBC (Bld) [#/Vol] 10*3/uL Normal <0.01 [facility] Comment on above: Order Comment: Speci men Type: BLOOD SPECIMENOrdering Facility: [facility] Address: [address] [place] [address] Performed By: #### 5 7021-8 ####[facility] LABORATORYCLIA [id number] [address] [place] Nucleated RBC/100 WBC (Bld) [Ratio] 0.0 /100 WBC Normal [facility] Comment on above: Order Comment: Speci men Type: BLOOD SPECIMENOrdering Facility: [facility] Address: [address] [place], [place] [address] Performed By: #### 5 7021-8 ####[facility] LABORATORYCLIA [id number] [address] Platelet mean volume (Bld) [Entitic vol] 10.0 fL Normal 9.0-12.7 [facility] Comment on above: Order Comment: Speci men Type: BLOOD SPECIMENOrdering Facility: [facility] Address: [address] [place], [place] [address] Performed By: #### 5 7021-8 ####[facility] LABORATORYCLIA [id number] [address] [place] Platelets (Bld) [#/Vol] 358 10*3/uL Normal 150-400 [facility] Comment on above: Order Comment: Speci men Type: BLOOD SPECIMENOrdering Facility: [facility] Address: [address] [place] [address] Performed By: #### 5 7021-8 ####[facility] LABORATORYCLIA [id number] [address] [place] RBC (Bld) [#/Vol] 3.39 10*6/uL Low 4.20-6.00 [facility] Comment on above: Order Comment: Speci men Type: BLOOD SPECIMENOrdering Facility: [facility] Address: [address] [place], [place] [address] Performed By: #### 5 7021-8 ####[facility]ORATORYCLIA [id number] [address] OF [place] WBC (Bld) [#/Vol] 13.17 10*3/uL High 3.70-11.00 [facility] Comment on above: Order Comment: Speci men Type: BLOOD SPECIMENOrdering Facility: [facility] Address: [address] [place] [address] Performed By: #### 5 7021-8 ####[facility]ORATORYCLIA [id number] [address] [place] NURSING PROGon 08-02-2021 NURSING PROG Normal [facility] THERAPY NTon 08-02-2021 THERAPY NT Normal [facility] aPTT PPPon 08-02-2021 aPTT Coag (PPP) [Time] 54.9 s High 23.0-32.4 [facility] Comment on above: Order Comment: Speci men Type: BLOOD SPECIMENOrdering Facility: [facility] Address: [address] [place] [address] Performed By: #### 1 4979-9 ####[facility]ORATORYCLIA [id number] [address] OF [facility] ALLIED HEALTHon 08-01-2021 ALLIED HEALTH Normal [facility] ALLIED HEALTH Normal [facility] Basic metabolic 2000 panelon 08-01-2021 Anion gap [Moles/Vol] 12 mmol/L Normal 9-18 [facility] Comment on above: Order Comment: Speci men Type: BLOOD SPECIMENOrdering Facility: [facility] Address: [address] [place] [address] Performed By: #### 2 4321-2, 24093-0, 73802-1, 2777-1 ####[facility]ORATORYCLIA [id number] [place] [address] [place] Calcium [Mass/Vol] 9.1 mg/dL Normal 8.5-10.2 [facility] Comment on above: Order Comment: Speci men Type: BLOOD SPECIMENOrdering Facility: [facility] Address: [address] [place] [address] Performed By: #### 2 4321-2, 78248-0, 15455-3, 2777-1 ####[facility]ORATORYCLIA [id number] [place] [address] [place] Chloride [Moles/Vol] 96 mmol/L Low 97-105 [facility] Comment on above: Order Comment: Speci men Type: BLOOD SPECIMENOrdering Facility: [facility] Address: [address] [place] [address] Performed By: #### 2 4321-2, 31431-2, 90200-4, 2777-1 ####[facility]ENTERCLIA [id number] [address] STATES OF [facility] CO2 [Moles/Vol] 27 mmol/L Normal 22-30 [facility] Comment on above: Order Comment: Speci men Type: BLOOD SPECIMENOrdering Facility: [facility] Address: [address] [place] [address] Performed By: #### 2 4321-2, 11069-2, 77261-2, 2777-1 ####[facility] [id number] [address] OF [facility] Creatinine [Mass/Vol] 0.64 mg/dL Low 0.73-1.22 [facility] Comment on above: Order Comment: Speci men Type: BLOOD SPECIMENOrdering Facility: [facility] Address: [address] [place] [address] Performed By: #### 2 4321-2, 73985-3, 09136-6, 277- ####[facility]PITALIA [id number] [address] OF [facility] ESTIMATED GLOMERULAR FILTRATION RATE 102 mL/min/1.73m??? Normal >=60 [facility] Comment on above: Order Comment: Speci men Type: BLOOD SPECIMENOrdering Facility: [facility] Address: [address] [place] [address] Result Comment: Luzmaria mated Glomerular Filtration Rate [...] actual GFR. Performed By: #### 2 4321-2, 99212-5, 54514-0, 2777-1 ####[facility] LABORATORYCLIA [id number] [place] [address] [place] Glucose [Mass/Vol] 122 mg/dL High 74-99 [facility] Comment on above: Order Comment: Shira feldman Type: BLOOD SPECIMENOrdering Facility: [facility] Address: [address] [place], [place] [phone] Result Comment: The [employer] (ADA) provides guidance for cutoff [...] Standards of Medical Care in Diabetes 2016, [employer]. Diabetes Care. 2016.39(Suppl 1). Performed By: #### 2 4321-2, 01141-8, 85856-4, 2777-1 ####[facility]ORATORYCLIA [id number] [place] [address] [place] Potassium [Moles/Vol] 4.2 mmol/L Normal 3.7-5.1 [facility] Comment on above: Order Comment: Shira feldman Type: BLOOD SPECIMENOrdering Facility: [facility] Address: [address] [place], [place] [phone] Performed By: #### 2 4321-2, 21685-2, 16348-3, 2777-1 ####[facility]ORATORYCLIA [id number] [place] [address] [place] Sodium [Moles/Vol] 135 mmol/L Low 136-144 [facility] Comment on above: Order Comment: Shira feldman Type: BLOOD SPECIMENOrdering Facility: [facility] Address: [address] [phone] Performed By: #### 2 4321-2, 31000-1, 11219-4, 2777-1 ####[facility]ORATORYCLIA [id number] [place] [address] [place] Urea nitrogen [Mass/Vol] 36 mg/dL High 9-24 [facility] Comment on above: Order Comment: Speci men Type: BLOOD SPECIMENOrdering Facility: [facility] Address: [address] [place] [address] Performed By: #### 2 4321-2, 61618-2, 08700-9, 2777-1 ####[facility]ATORYCLIA [id number] [address] [place] CASE MANAGEMon 08-01-2021 CASE MANAGEM Normal [facility] CBC W Auto Differential pane l (Bld)on 08-01-2021 Basophils (Bld) [#/Vol] 0.04 10*3/uL Normal <0.11 [facility] Comment on above: Order Comment: Speci men Type: BLOOD SPECIMENOrdering Facility: [facility] Address: [address] [place] [address] Performed By: #### 5 7021-8 ####[facility]ORATORYCLIA [id number] [address] [place] Basophils/100 WBC (Bld) 0.3 % Normal [facility] Comment on above: Order Comment: Speci men Type: BLOOD SPECIMENOrdering Facility: [facility] Address: [address] [place] [address] Performed By: #### 5 7021-8 ####[facility]ATORYCLIA [id number] [address] [place] Differential cell count method Nom (Bld) Auto Normal [facility] Comment on above: Order Comment: Speci men Type: BLOOD SPECIMENOrdering Facility: [facility] Address: [address] [place] [address] Performed By: #### 5 7021-8 ####[facility]ATORYCLIA [id number] [place] [address] [place] Eosinophils (Bld) [#/Vol] 0.37 10*3/uL Normal <0.46 [facility] Comment on above: Order Comment: Speci men Type: BLOOD SPECIMENOrdering Facility: [facility] Address: [address] [place] [address] Performed By: #### 5 7021-8 ####[facility]ORATORYCLIA [id number] [address] Eosinophils/100 WBC (Bld) 3.1 % Normal [facility] Comment on above: Order Comment: Speci men Type: BLOOD SPECIMENOrdering Facility: [facility] Address: [address] [place] [address] Performed By: #### 5 7021-8 ####[facility]ORATORYCLIA [id number] [address] [place] Erythrocyte distribution width (RBC) [Ratio] 17.5 % High 11.5-15.0 [facility] Comment on above: Order Comment: Speci men Type: BLOOD SPECIMENOrdering Facility: [facility] Address: [address] [place] [address] Performed By: #### 5 7021-8 ####[facility] LABORATORYCLIA [id number] [address] [place] Hematocrit (Bld) [Volume fraction] 30.1 % Low 39.0-51.0 [facility] Comment on above: Order Comment: Speci men Type: BLOOD SPECIMENOrdering Facility: [facility] Address: [address] [place] [address] Performed By: #### 5 7021-8 ####[facility]ORATORYCLIA [id number] [address] [place] Hemoglobin (Bld) [Mass/Vol] 9.1 g/dL Low 13.0-17.0 [facility] Comment on above: Order Comment: Speci men Type: BLOOD SPECIMENOrdering Facility: [facility] Address: [address] [place] [address] Performed By: #### 5 7021-8 ####[facility] LABORATORYCLIA [id number] [address] IMMATURE GRAN % 0.6 % Normal [facility] Comment on above: Order Comment: Speci men Type: BLOOD SPECIMENOrdering Facility: [facility] Address: [address] [place] [address] Performed By: #### 5 7021-8 ####[facility]ATORYCLIA [id number] [address] IMMATURE GRAN ABS 0.07 k/uL Normal <0.10 [facility] Comment on above: Order Comment: Speci men Type: BLOOD SPECIMENOrdering Facility: [facility] Address: [address] [place] [address] Performed By: #### 5 7021-8 ####[facility]ATORYCLIA [id number] [address] [place] Lymphocytes (Bld) [#/Vol] 2.05 10*3/uL Normal 1.00-4.00 [facility] Comment on above: Order Comment: Speci men Type: BLOOD SPECIMENOrdering Facility: [facility] Address: [address] [place] [address] Performed By: #### 5 7021-8 ####[facility]ATORYCLIA [id number] [address] Lymphocytes/100 WBC (Bld) 17.1 % Normal [facility] Comment on above: Order Comment: Speci men Type: BLOOD SPECIMENOrdering Facility: [facility] Address: [address] [place] [address] Performed By: #### 5 7021-8 ####[facility]ATORYCLIA [id number] [address] [place] MCH (RBC) [Entitic mass] 27.7 pg Normal 26.0-34.0 [facility] Comment on above: Order Comment: Speci men Type: BLOOD SPECIMENOrdering Facility: [facility] Address: [address] [place] [address] Performed By: #### 5 7021-8 ####[facility]ATORYCLIA [id number] [address] STATES [facility] MCHC (RBC) [Mass/Vol] 30.2 g/dL Low 30.5-36.0 [facility] Comment on above: Order Comment: Speci men Type: BLOOD SPECIMENOrdering Facility: [facility] Address: [address] [place] [address] Performed By: #### 5 7021-8 ####[facility]ATORYCLIA [id number] [address] MCV (RBC) [Entitic vol] 91.5 fL Normal 80.0-100.0 [facility] Comment on above: Order Comment: Speci men Type: BLOOD SPECIMENOrdering Facility: [facility] Address: [address] [place] [address] Performed By: #### 5 7021-8 ####[facility]ATORYCLIA [id number] [address] Monocytes (Bld) [#/Vol] 0.53 10*3/uL Normal <0.87 [facility] Comment on above: Order Comment: Speci men Type: BLOOD SPECIMENOrdering Facility: [facility] Address: [address] [place] [address] Performed By: #### 5 7021-8 ####[facility]ATORYCLIA [id number] [address] Monocytes/100 WBC (Bld) 4.4 % Normal [facility] Comment on above: Order Comment: Speci men Type: BLOOD SPECIMENOrdering Facility: [facility] Address: [address] [place] [address] Performed By: #### 5 7021-8 ####[facility]ATORYCLIA [id number] [address] [place] Neutrophils (Bld) [#/Vol] 8.91 10*3/uL High 1.45-7.50 [facility] Comment on above: Order Comment: Speci men Type: BLOOD SPECIMENOrdering Facility: [facility] Address: [address] [address] Performed By: #### 5 7021-8 ####[facility]ORATORYCLIA [id number] [address] Neutrophils/100 WBC (Bld) 74.5 % Normal [facility] Comment on above: Order Comment: Speci men Type: BLOOD SPECIMENOrdering Facility: [facility] Address: [address] [place] [address] Performed By: #### 5 7021-8 ####[facility]ATORYCLIA [id number] [address] Nucleated RBC (Bld) [#/Vol] 10*3/uL Normal <0.01 [facility] Comment on above: Order Comment: Speci men Type: BLOOD SPECIMENOrdering Facility: [facility] Address: [address] [place] [address] Performed By: #### 5 7021-8 ####[facility]ORATORYCLIA [id number] [address] Nucleated RBC/100 WBC (Bld) [Ratio] 0.0 /100 WBC Normal [facility] Comment on above: Order Comment: Speci men Type: BLOOD SPECIMENOrdering Facility: [facility] Address: [address] [place] [place] [address] Performed By: #### 5 7021-8 ####[facility]ATORYCLIA [id number] [address] Platelet mean volume (Bld) [Entitic vol] 10.4 fL Normal 9.0-12.7 [facility] Comment on above: Order Comment: Speci men Type: BLOOD SPECIMENOrdering Facility: [facility] Address: [address] [place] [address] Performed By: #### 5 7021-8 ####[facility]ATORYCLIA [id number] [address] Platelets (Bld) [#/Vol] 319 10*3/uL Normal 150-400 [facility] Comment on above: Order Comment: Speci men Type: BLOOD SPECIMENOrdering Facility: [facility] Address: [address] [place] [address] Performed By: #### 5 7021-8 ####[facility] LABORATORYCLIA [id number] [address] OF [facility] RBC (Bld) [#/Vol] 3.29 10*6/uL Low 4.20-6.00 [facility] Comment on above: Order Comment: Speci men Type: BLOOD SPECIMENOrdering Facility: [facility] Address: [address] [place] [address] Performed By: #### 5 7021-8 ####[facility]ATORYCLIA [id number] [address] WBC (Bld) [#/Vol] 11.97 10*3/uL High 3.70-11.00 [facility] Comment on above: Order Comment: Speci men Type: BLOOD SPECIMENOrdering Facility: [facility] Address: [address] [place] [address] Performed By: #### 5 7021-8 ####[facility]ATORYCLIA [id number] [address] BRAIN WO IVCONon 08-02-19 CT BRAIN WO IVCON Normal [facility] Magnesium SerPl-mCncon 08-01 Magnesium [Mass/Vol] 2.4 mg/dL High 1.7-2.3 [facility] Comment on above: Order Comment: Speci men Type: BLOOD SPECIMENOrdering Facility: [facility] Address: [address] [place] [address] Performed By: #### 2 4321-2, 58076-7, 58121-5, 2777-1 ####[facility]ATORYCLIA [id number] [address] NURSING PROGon 08-01-2021 NURSING PROG Normal [facility] NUTRITIONon 08-01-2021 NUTRITION Normal [facility] Phosphate SerPl-mCncon 08-01 Phosphate [Mass/Vol] 3.3 mg/dL Normal 2.7-4.8 [facility] Comment on above: Order Comment: Speci men Type: BLOOD SPECIMENOrdering Facility: [facility] Address: [address] [place] [address] Performed By: #### 2 4321-2, 72333-2, 98201-8, 2777-1 ####[facility]ATORYCLIA [id number] [address] Prealbumin [Mass/Vol]on 07-06 Prealbumin Nephelometry [Mass/Vol] 30 mg/dL Normal 17-36 [facility] Comment on above: Order Comment: Speci men Type: BLOOD SPECIMENOrdering Facility: [facility] Address: [address] [place] [address] Performed By: #### 2 4321-2, 42648-7, 96636-6, 2777-1 ####[facility]ATORYCLIA [id number] [address] THERAPY NTon 08-01-2021 THERAPY NT Normal [facility] THERAPY NT Normal [facility] TYPE AND SCREENon 08-01-2021 ABO O Normal [facility] Comment on above: Order Comment: Speci men Type: BLOOD SPECIMENOrdering Facility: [facility] Address: [address] [place] [address] Performed By: #### T SCR ####[facility] BANKCLIA [id number] [address] HISTORICAL AB SCR STATUS Negative Normal [facility] Comment on above: Order Comment: Speci men Type: BLOOD SPECIMENOrdering Facility: [facility] Address: [address] [place] [address] Performed By: #### T SCR ####[facility] BANKCLIA [id number] [address] Rh Nom (Bld) Positive Normal [facility] Comment on above: Order Comment: Speci men Type: BLOOD SPECIMENOrdering Facility: [facility] Address: [address] [place] [address] Performed By: #### T SCR ####[facility] BANKCLIA [id number] [address] TYPE AND SCREEN EXPIRATION 08/04/2021 23:59 Normal [facility] Comment on above: Order Comment: Speci men Type: BLOOD SPECIMENOrdering Facility: [facility] Address: [address] [place] [address] Performed By: #### T SCR ####[facility] BANKCLIA [id number] [address] XR CHEST 1V FRONTALon 2021 XR CHEST 1V FRONTAL Normal [facility] aPTT PPPon 08-01-2021 aPTT Coag (PPP) [Time] 50.9 s High 23.0-32.4 [facility] Comment on above: Order Comment: Speci men Type: BLOOD SPECIMENOrdering Facility: [facility] Address: [address] [place] [address] Performed By: #### 1 4979-9 ####[facility] LABORATORYCLIA [id number] [address] CBC W Auto Differential pane l (Bld)on 07-31-2021 Basophils (Bld) [#/Vol] 0.05 10*3/uL Normal <0.11 [facility] Comment on above: Order Comment: Speci men Type: BLOOD SPECIMENOrdering Facility: [facility] Address: [address] [place] [address] Performed By: #### 5 7021-8 ####[facility] LABORATORYCLIA [id number] [address] Basophils/100 WBC (Bld) 0.4 % Normal [facility] Comment on above: Order Comment: Speci men Type: BLOOD SPECIMENOrdering Facility: [facility] Address: [address] [place] [address] Performed By: #### 5 7021-8 ####[facility] LABORATORYCLIA [id number] [address] Differential cell count method Nom (Bld) Auto Normal [facility] Comment on above: Order Comment: Speci men Type: BLOOD SPECIMENOrdering Facility: [facility] Address: [address] [place] [address] Performed By: #### 5 7021-8 ####[facility] LABORATORYCLIA [id number] [address] STATES OF [facility] Eosinophils (Bld) [#/Vol] 0.51 10*3/uL High <0.46 [facility] Comment on above: Order Comment: Speci men Type: BLOOD SPECIMENOrdering Facility: [facility] Address: [address] [place] [address] Performed By: #### 5 7021-8 ####[facility] LABORATORYCLIA [id number] [address] Eosinophils/100 WBC (Bld) 4.5 % Normal [facility] Comment on above: Order Comment: Speci men Type: BLOOD SPECIMENOrdering Facility: [facility] Address: [address] [place] [address] Performed By: #### 5 7021-8 ####[facility] LABORATORYCLIA [id number] [address] Erythrocyte distribution width (RBC) [Ratio] 17.5 % High 11.5-15.0 [facility] Comment on above: Order Comment: Speci men Type: BLOOD SPECIMENOrdering Facility: [facility] Address: [address] [place] [address] Performed By: #### 5 7021-8 ####[facility] LABORATORYCLIA [id number] [place] [address] [place] Hematocrit (Bld) [Volume fraction] 30.4 % Low 39.0-51.0 [facility] Comment on above: Order Comment: Speci men Type: BLOOD SPECIMENOrdering Facility: [facility] Address: [address] [place] [address] Performed By: #### 5 7021-8 ####[facility] LABORATORYCLIA [id number] [address] STATES OF [facility] Hemoglobin (Bld) [Mass/Vol] 9.2 g/dL Low 13.0-17.0 [facility] Comment on above: Order Comment: Speci men Type: BLOOD SPECIMENOrdering Facility: [facility] Address: [address] [place] [address] Performed By: #### 5 7021-8 ####[facility] LABORATORYCLIA [id number] [address] IMMATURE GRAN % 0.5 % Normal [facility] Comment on above: Order Comment: Speci men Type: BLOOD SPECIMENOrdering Facility: [facility] Address: [address] [place] [address] Performed By: #### 5 7021-8 ####[facility] LABORATORYCLIA [id number] [address] IMMATURE GRAN ABS 0.06 k/uL Normal <0.10 [facility] Comment on above: Order Comment: Speci men Type: BLOOD SPECIMENOrdering Facility: [facility] Address: [address] [place] [address] Performed By: #### 5 7021-8 ####[facility] LABORATORYCLIA [id number] [address] [place] Lymphocytes (Bld) [#/Vol] 1.99 10*3/uL Normal 1.00-4.00 [facility] Comment on above: Order Comment: Speci men Type: BLOOD SPECIMENOrdering Facility: [facility] Address: [address] [place] [address] Performed By: #### 5 7021-8 ####[facility] LABORATORYCLIA [id number] [address] Lymphocytes/100 WBC (Bld) 17.6 % Normal [facility] Comment on above: Order Comment: Speci men Type: BLOOD SPECIMENOrdering Facility: [facility] Address: [address] [place] [address] Performed By: #### 5 7021-8 ####[facility] LABORATORYCLIA [id number] [address] MCH (RBC) [Entitic mass] 28.4 pg Normal 26.0-34.0 [facility] Comment on above: Order Comment: Speci men Type: BLOOD SPECIMENOrdering Facility: [facility] Address: [address] [place] [address] Performed By: #### 5 7021-8 ####[facility] LABORATORYCLIA [id number] [address] [address] MCHC (RBC) [Mass/Vol] 30.3 g/dL Low 30.5-36.0 [facility] Comment on above: Order Comment: Speci men Type: BLOOD SPECIMENOrdering Facility: [facility] Address: [address] [place] [address] Performed By: #### 5 7021-8 ####[facility]ORATORYCLIA [id number] [address] STATES [facility] MCV (RBC) [Entitic vol] 93.8 fL Normal 80.0-100.0 [facility] Comment on above: Order Comment: Speci men Type: BLOOD SPECIMENOrdering Facility: [facility] Address: [address] [place] [address] Performed By: #### 5 7021-8 ####[facility]ATORYCLIA [id number] [address] Monocytes (Bld) [#/Vol] 0.57 10*3/uL Normal <0.87 [facility] Comment on above: Order Comment: Speci men Type: BLOOD SPECIMENOrdering Facility: [facility] Address: [address] [place] [address] Performed By: #### 5 7021-8 ####[facility]ATORYCLIA [id number] [address] [place] Monocytes/100 WBC (Bld) 5.0 % Normal [facility] Comment on above: Order Comment: Speci men Type: BLOOD SPECIMENOrdering Facility: [facility] Address: [address] [place] [address] Performed By: #### 5 7021-8 ####[facility] LABORATORYCLIA [id number] [address] [place] Neutrophils (Bld) [#/Vol] 8.12 10*3/uL High 1.45-7.50 [facility] Comment on above: Order Comment: Speci men Type: BLOOD SPECIMENOrdering Facility: [facility] Address: [address] [place] [address] Performed By: #### 5 7021-8 ####[facility]ATORYCLIA [id number] [address] [place] Neutrophils/100 WBC (Bld) 72.0 % Normal [facility] Comment on above: Order Comment: Speci men Type: BLOOD SPECIMENOrdering Facility: [facility] Address: [address] [place] [address] Performed By: #### 5 7021-8 ####[facility]ATORYCLIA [id number] [address] [place] Nucleated RBC (Bld) [#/Vol] 10*3/uL Normal <0.01 [facility] Comment on above: Order Comment: Speci men Type: BLOOD SPECIMENOrdering Facility: [facility] Address: [address] [place] [address] Performed By: #### 5 7021-8 ####[facility]ATORYCLIA [id number] [address] [place] Nucleated RBC/100 WBC (Bld) [Ratio] 0.0 /100 WBC Normal [facility] Comment on above: Order Comment: Speci men Type: BLOOD SPECIMENOrdering Facility: [facility] Address: [address] [place], [place] [address] Performed By: #### 5 7021-8 ####[facility]ATORYCLIA [id number] [address] [place] Platelet mean volume (Bld) [Entitic vol] 10.9 fL Normal 9.0-12.7 [facility] Comment on above: Order Comment: Speci men Type: BLOOD SPECIMENOrdering Facility: [facility] Address: [address] [place] [address] Performed By: #### 5 7021-8 ####[facility]ATORYCLIA [id number] [address] [place] Platelets (Bld) [#/Vol] 303 10*3/uL Normal 150-400 [facility] Comment on above: Order Comment: Speci men Type: BLOOD SPECIMENOrdering Facility: [facility] Address: [address] [place] [address] Performed By: #### 5 7021-8 ####[facility]ATORYCLIA [id number] [address] [place] RBC (Bld) [#/Vol] 3.24 10*6/uL Low 4.20-6.00 [facility] Comment on above: Order Comment: Speci men Type: BLOOD SPECIMENOrdering Facility: [facility] Address: [address] [place], [place] [address] Performed By: #### 5 7021-8 ####[facility]ATORYCLIA [id number] [address] [place] WBC (Bld) [#/Vol] 11.30 10*3/uL High 3.70-11.00 [facility] Comment on above: Order Comment: Speci men Type: BLOOD SPECIMENOrdering Facility: [facility] Address: [address] [place], [place] [address] Performed By: #### 5 7021-8 ####[facility]ATORYCLIA [id number] [address] NURSING PROGon 07-31-2021 NURSING PROG Normal [facility] aPTT PPPon 07-31-2021 aPTT Coag (PPP) [Time] 64.9 s High 23.0-32.4 [facility] Comment on above: Order Comment: Speci men Type: BLOOD SPECIMENOrdering Facility: [facility] Address: [address] [place] [address] Performed By: #### 1 4979-9 ####[facility]ATORYCLIA [id number] [address] ALLIED HEALTHon 07-30-2021 ALLIED HEALTH Normal [facility] Bacteria CSF Culton 07-31-19 22 Bacteria identified Cx Nom (CSF) CULTURE, CSF: No growth 14 days GRAM STAIN: No organisms seen Few Mononuclear cells Rare Polymorphonuclear leukocytes Gram stain performed on cytospun specimen. Normal [facility] Comment on above: Performed By: #### 6 06-4 ####[facility]ATORYCLIA [id number] [address] [place] Basic metabolic 2000 panelon 07-30-2021 Anion gap [Moles/Vol] 9 mmol/L Normal 9-18 [facility] Comment on above: Order Comment: Speci men Type: BLOOD SPECIMENOrdering Facility: [facility] Address: [address] [place] [address] Performed By: #### 2 777-1, 42551-1, ####[facility]ATORYCLIA [id number] [address] STATES [facility] Calcium [Mass/Vol] 8.9 mg/dL Normal 8.5-10.2 [facility] Comment on above: Order Comment: Speci men Type: BLOOD SPECIMENOrdering Facility: [facility] Address: [address] [place] [address] Performed By: #### 2 777-1, 26765-0, ####[facility]ATORYCLIA [id number] [place] [address] [place] Chloride [Moles/Vol] 95 mmol/L Low 97-105 [facility] Comment on above: Order Comment: Speci men Type: BLOOD SPECIMENOrdering Facility: [facility] Address: [address] [place] [address] Performed By: #### 2 777-1, , ####[facility]ENTERCLIA [id number] [address] STATES OF [facility] CO2 [Moles/Vol] 28 mmol/L Normal 22-30 [facility] Comment on above: Order Comment: Speci men Type: BLOOD SPECIMENOrdering Facility: [facility] Address: [address] [place] [address] Performed By: #### 2 777-1, , ####[facility]ENTERCLIA [id number] [address] Creatinine [Mass/Vol] 0.67 mg/dL Low 0.73-1.22 [facility] Comment on above: Order Comment: Speci men Type: BLOOD SPECIMENOrdering Facility: [facility] Address: [address] [place] [address] Performed By: #### 2 777-1, , ####[facility] CENTERCLIA [id number] [address] ESTIMATED GLOMERULAR FILTRATION RATE 101 mL/min/1.73m??? Normal >=60 [facility] Comment on above: Order Comment: Speci men Type: BLOOD SPECIMENOrdering Facility: [facility] Address: [address] [place] [address] Result Comment: Luzmaria mated Glomerular Filtration Rate [...] actual GFR. Performed By: #### 2 777-1, 27868-8, ####[facility]ORATORYCLIA [id number] [place] [address] [place] Glucose [Mass/Vol] 125 mg/dL High 74-99 [facility] Comment on above: Order Comment: Shira feldman Type: BLOOD SPECIMENOrdering Facility: [facility] Address: [address] [place], [place] [address] Result Comment: The [employer] (ADA) provides guidance for cutoff [...] Standards of Medical Care in Diabetes 2016, [employer]. Diabetes Care. 2016.39(Suppl 1). Performed By: #### 2 777-1, , ####[facility]ATORYCLIA [id number] [place] [address] [place] Potassium [Moles/Vol] 3.9 mmol/L Normal 3.7-5.1 [facility] Comment on above: Order Comment: Shira feldman Type: BLOOD SPECIMENOrdering Facility: [facility] Address: [address] [place] [address] Performed By: #### 2 777-1, 10166-6, ####[facility]ATORYCLIA [id number] [place] [address] [place] Sodium [Moles/Vol] 132 mmol/L Low 136-144 [facility] Comment on above: Order Comment: Shira feldman Type: BLOOD SPECIMENOrdering Facility: [facility] Address: [address] [place] [address] Performed By: #### 2 777-1, 93604-4, 07183-2 ####[facility]ATORYCLIA [id number] [address] STATES [facility] Urea nitrogen [Mass/Vol] 38 mg/dL High 9-24 [facility] Comment on above: Order Comment: Speci men Type: BLOOD SPECIMENOrdering Facility: [facility] Address: [address] [place] [address] Performed By: #### 2 777-1, 55778-7, ####[facility]ATORYCLIA [id number] [address] [place] CBC W Auto Differential pane l (Bld)on 07-30-2021 Basophils (Bld) [#/Vol] 0.04 10*3/uL Normal <0.11 [facility] Comment on above: Order Comment: Speci men Type: BLOOD SPECIMENOrdering Facility: [facility] Address: [address] [place] [address] Performed By: #### 5 7021-8 ####[facility]ATORYCLIA [id number] [address] [place] Basophils/100 WBC (Bld) 0.4 % Normal [facility] Comment on above: Order Comment: Speci men Type: BLOOD SPECIMENOrdering Facility: [facility] Address: [address] [place] [address] Performed By: #### 5 7021-8 ####[facility]ATORYCLIA [id number] [address] STATES [facility] Differential cell count method Nom (Bld) Auto Normal [facility] Comment on above: Order Comment: Speci men Type: BLOOD SPECIMENOrdering Facility: [facility] Address: [address] [place] [address] Performed By: #### 5 7021-8 ####[facility]ATORYCLIA [id number] [address] [place] Eosinophils (Bld) [#/Vol] 0.30 10*3/uL Normal <0.46 [facility] Comment on above: Order Comment: Speci men Type: BLOOD SPECIMENOrdering Facility: [facility] Address: [address] [address] Performed By: #### 5 7021-8 ####[facility]ATORYCLIA [id number] [address] [place] Eosinophils/100 WBC (Bld) 2.7 % Normal [facility] Comment on above: Order Comment: Speci men Type: BLOOD SPECIMENOrdering Facility: [facility] Address: [address] [place] [address] Performed By: #### 5 7021-8 ####[facility]ATORYCLIA [id number] [address] Erythrocyte distribution width (RBC) [Ratio] 17.2 % High 11.5-15.0 [facility] Comment on above: Order Comment: Speci men Type: BLOOD SPECIMENOrdering Facility: [facility] Address: [address] [place] [address] Performed By: #### 5 7021-8 ####[facility]ATORYCLIA [id number] [address] STATES [facility] Hematocrit (Bld) [Volume fraction] 30.8 % Low 39.0-51.0 [facility] Comment on above: Order Comment: Speci men Type: BLOOD SPECIMENOrdering Facility: [facility] Address: [address] [address] Performed By: #### 5 7021-8 ####[facility]ATORYCLIA [id number] [address] [place] Hemoglobin (Bld) [Mass/Vol] 9.4 g/dL Low 13.0-17.0 [facility] Comment on above: Order Comment: Speci men Type: BLOOD SPECIMENOrdering Facility: [facility] Address: [address] [place], [place] [address] Performed By: #### 5 7021-8 ####[facility]ATORYCLIA [id number] [address] IMMATURE GRAN % 0.5 % Normal [facility] Comment on above: Order Comment: Speci men Type: BLOOD SPECIMENOrdering Facility: [facility] Address: [address] [place] [address] Performed By: #### 5 7021-8 ####[facility]ATORYCLIA [id number] [address] IMMATURE GRAN ABS 0.06 k/uL Normal <0.10 [facility] Comment on above: Order Comment: Speci men Type: BLOOD SPECIMENOrdering Facility: [facility] Address: [address] [place] [address] Performed By: #### 5 7021-8 ####[facility]ATORYCLIA [id number] [address] Lymphocytes (Bld) [#/Vol] 1.68 10*3/uL Normal 1.00-4.00 [facility] Comment on above: Order Comment: Speci men Type: BLOOD SPECIMENOrdering Facility: [facility] Address: [address] [place] [address] Performed By: #### 5 7021-8 ####[facility]ATORYCLIA [id number] [address] Lymphocytes/100 WBC (Bld) 15.3 % Normal [facility] Comment on above: Order Comment: Speci men Type: BLOOD SPECIMENOrdering Facility: [facility] Address: [address] [place] [address] Performed By: #### 5 7021-8 ####[facility]ATORYCLIA [id number] [address] MCH (RBC) [Entitic mass] 28.0 pg Normal 26.0-34.0 [facility] Comment on above: Order Comment: Speci men Type: BLOOD SPECIMENOrdering Facility: [facility] Address: [address] [place] [address] Performed By: #### 5 7021-8 ####[facility]ATORYCLIA [id number] [address] MCHC (RBC) [Mass/Vol] 30.5 g/dL Normal 30.5-36.0 [facility] Comment on above: Order Comment: Speci men Type: BLOOD SPECIMENOrdering Facility: [facility] Address: [address] [place] [address] Performed By: #### 5 7021-8 ####[facility]ATORYCLIA [id number] [address] MCV (RBC) [Entitic vol] 91.7 fL Normal 80.0-100.0 [facility] Comment on above: Order Comment: Speci men Type: BLOOD SPECIMENOrdering Facility: [facility] Address: [address] [place] [address] Performed By: #### 5 7021-8 ####[facility]ATORYCLIA [id number] [address] OF [facility] Monocytes (Bld) [#/Vol] 0.53 10*3/uL Normal <0.87 [facility] Comment on above: Order Comment: Speci men Type: BLOOD SPECIMENOrdering Facility: [facility] Address: [address] [place] [address] Performed By: #### 5 7021-8 ####[facility]ATORYCLIA [id number] [address] Monocytes/100 WBC (Bld) 4.8 % Normal [facility] Comment on above: Order Comment: Speci men Type: BLOOD SPECIMENOrdering Facility: [facility] Address: [address] [place] [address] Performed By: #### 5 7021-8 ####[facility]ATORYCLIA [id number] [address] [place] Neutrophils (Bld) [#/Vol] 8.39 10*3/uL High 1.45-7.50 [facility] Comment on above: Order Comment: Speci men Type: BLOOD SPECIMENOrdering Facility: [facility] Address: [address] [place] [address] Performed By: #### 5 7021-8 ####[facility]ORYCLIA [id number] [address] Neutrophils/100 WBC (Bld) 76.3 % Normal [facility] Comment on above: Order Comment: Speci men Type: BLOOD SPECIMENOrdering Facility: [facility] Address: [address] [place] [address] Performed By: #### 5 7021-8 ####[facility]ATORYCLIA [id number] [address] STATES [facility] Nucleated RBC (Bld) [#/Vol] 10*3/uL Normal <0.01 [facility] Comment on above: Order Comment: Speci men Type: BLOOD SPECIMENOrdering Facility: [facility] Address: [address] [place] [address] Performed By: #### 5 7021-8 ####[facility]ATORYCLIA [id number] [address] Nucleated RBC/100 WBC (Bld) [Ratio] 0.0 /100 WBC Normal [facility] Comment on above: Order Comment: Speci men Type: BLOOD SPECIMENOrdering Facility: [facility] Address: [address] [place] [address] Performed By: #### 5 7021-8 ####[facility]ATORYCLIA [id number] [address] Platelet mean volume (Bld) [Entitic vol] 10.9 fL Normal 9.0-12.7 [facility] Comment on above: Order Comment: Speci men Type: BLOOD SPECIMENOrdering Facility: [facility] Address: [address] [place] [address] Performed By: #### 5 7021-8 ####[facility]ATORYCLIA [id number] [address] OF [facility] Platelets (Bld) [#/Vol] 287 10*3/uL Normal 150-400 [facility] Comment on above: Order Comment: Speci men Type: BLOOD SPECIMENOrdering Facility: [facility] Address: [address] [place] [address] Performed By: #### 5 7021-8 ####[facility]ATORYCLIA [id number] [address] STATES OF [facility] RBC (Bld) [#/Vol] 3.36 10*6/uL Low 4.20-6.00 [facility] Comment on above: Order Comment: Speci men Type: BLOOD SPECIMENOrdering Facility: [facility] Address: [address] [place] [address] Performed By: #### 5 7021-8 ####[facility]ATORYCLIA [id number] [address] WBC (Bld) [#/Vol] 11.00 10*3/uL Normal 3.70-11.00 [facility] Comment on above: Order Comment: Speci men Type: BLOOD SPECIMENOrdering Facility: [facility] Address: [address] [place] [address] Performed By: #### 5 7021-8 ####[facility]ATORYCLIA [id number] [address] CSF MANUAL DIFFon 07-30-2021 DIF TTL, CSF 100 cells counted Normal [facility] Comment on above: Order Comment: Speci men Type: CEREBROSPINAL FLUIDOrdering Facility: [facility] Address: [address] [place] [address] Performed By: #### L [id number], [id number], 69320-7 ####[facility]ATORYCLIA [id number] [address] EOSIN%, CSF 0 % Normal [facility] Comment on above: Order Comment: Speci men Type: CEREBROSPINAL FLUIDOrdering Facility: [facility] Address: [address] [place] [address] Performed By: #### L [id number], [id number], 97048-7 ####[facility]ORYCLIA [id number] [address] [place] LYMPH%, CSF 75 % Normal 50-90 [facility] Comment on above: Order Comment: Speci men Type: CEREBROSPINAL FLUIDOrdering Facility: [facility] Address: [address] [place] [address] Performed By: #### L [id number], HIW0923, 72069-3 ####[facility]ORYCLIA [id number] [place] [address] [place] MACRO%, CSF 9 % High <1 [facility] Comment on above: Order Comment: Speci men Type: CEREBROSPINAL FLUIDOrdering Facility: [facility] Address: [address] [place] [address] Performed By: #### L [id number], SSS6259, 32241-7 ####[facility]ORYCLIA [id number] [place] [address] [place] MONO%, CSF 10 % Normal 10-50 [facility] Comment on above: Order Comment: Speci men Type: CEREBROSPINAL FLUIDOrdering Facility: [facility] Address: [address] [place] [address] Performed By: #### L [id number], [id number], 83364-2 ####[facility]ORYCLIA [id number] [address] [place] OTHER CL%, CSF 4 % Normal [facility] Comment on above: Order Comment: Speci men Type: CEREBROSPINAL FLUIDOrdering Facility: [facility] Address: [address] [place] [address] Result Comment: Path review to follow. Performed By: #### L [id number], JHK2681, 94554-7 ####[facility]ORYCLIA [id number] [address] [place] REAC LYMPH %, CSF 2 % Normal [facility] Comment on above: Order Comment: Speci men Type: CEREBROSPINAL FLUIDOrdering Facility: [facility] Address: [address] [place] [address] Performed By: #### L [id number], YGQ6558, 63010-6 ####[facility]ORYCLIA [id number] [address] [place] CSF PATHOLOGIST INTERP (LAB REFLEX ORDER-NO BILL)on 07-30-2021 CSF STAFF REVIEW Negative Normal [facility] Comment on above: Order Comment: Speci men Type: CEREBROSPINAL FLUIDOrdering Facility: [facility] Address: [address] [place] [address] Performed By: #### L [id number], TLS1806, 91657-7 ####[facility]ATORYCLIA [id number] [address] Pathologist name Reviewed by Eloise rebolledo MD [facility] Comment on above: Order Comment: Speci men Type: CEREBROSPINAL FLUIDOrdering Facility: [facility] Address: [address] [place] [address] Performed By: #### L [id number], AFL0728, 94624-3 ####[facility]ORYCLIA [id number] [address] OF [place] CT BRAIN WO IVCONon 07-31-19 CT BRAIN WO IVCON Normal [facility] Cell count panel (CSF)on Clarity (CSF) Clear Normal Clear [facility] Comment on above: Order Comment: Speci men Type: CEREBROSPINAL FLUIDOrdering Facility: [facility] Address: [address] [place] [address] Performed By: #### L PZ1683, UQE3752, 39804-5 ####[facility]ORYCLIA [id number] [address] [place] Clarity (Unsp spec) Clear Normal Clear [facility] Comment on above: Order Comment: Speci men Type: CEREBROSPINAL FLUIDOrdering Facility: [facility] Address: [address] [place] [address] Performed By: #### L [id number], ODB2087, 71171-2 ####[facility]ORYCLIA [id number] [address] Color (CSF) Colorless Normal Colorless [facility] Comment on above: Order Comment: Speci men Type: CEREBROSPINAL FLUIDOrdering Facility: [facility] Address: [address] [place] [address] Performed By: #### L [id number], AOT3493, 37079-3 ####[facility]ATORYCLIA [id number] [address] Color (Spun CSF) Colorless Normal Colorless [facility] Comment on above: Order Comment: Speci men Type: CEREBROSPINAL FLUIDOrdering Facility: [facility] Address: [address] [place] [address] Performed By: #### L [id number], YJA3863, 94689-7 ####[facility]ATORYCLIA [id number] [address] CSF TUBE [employer] Normal [facility] Comment on above: Order Comment: Speci men Type: CEREBROSPINAL FLUIDOrdering Facility: [facility] Address: [address] [place] [address] Performed By: #### L [id number], BTT6935, 49138-2 ####[facility]ATORYCLIA [id number] [address] [place] RBC Manual cnt (CSF) [#/Vol] 9 cells/uL High 0-5 [facility] Comment on above: Order Comment: Speci men Type: CEREBROSPINAL FLUIDOrdering Facility: [facility] Address: [address] [place] [address] Performed By: #### L [id number], BNC3327, 56780-8 ####[facility]ORATORYCLIA [id number] [place] [address] [place] WBC Manual cnt (CSF) [#/Vol] 8 cells/uL High 0-5 [facility] Comment on above: Order Comment: Speci men Type: CEREBROSPINAL FLUIDOrdering Facility: [facility] Address: [address] [place] [address] Performed By: #### L [id number], [id number], [id number] ####[facility] [facility]ORYCLIA [id number] [address] OF [facility] Glucose CSF-mCncon Glucose (CSF) [Mass/Vol] 65 mg/dL Normal 40-70 [facility] Comment on above: Order Comment: Speci men Type: CEREBROSPINAL FLUIDOrdering Facility: [facility] Address: [address] [place] [address] Result Comment: Lumb ar CSF glucose values of healthy patients are approximately 60% of the plasma values and must always be compared with a concurrently measured plasma value for adequate clinical interpretation.References: 1. Glucose HK (GLUC3) [package insert V 12.0 [place]an]. [facility], [place], [place]. September 2015. 2. Michelle Moore, Loki H. (2015). Chapter 7: Glucose and Lactate. FGarfield Alcocer al.(eds.), Cerebrospinal Fluid in Clinical Neurology. Pepin: [employer]. Performed By: #### 2 342-4, 2880-3 ####[facility]ATORYCLIA [id number] [place] [address] [place] Magnesium SerPl-mCncon 07-30 Magnesium [Mass/Vol] 2.5 mg/dL High 1.7-2.3 [facility] Comment on above: Order Comment: Speci men Type: BLOOD SPECIMENOrdering Facility: [facility] Address: [address] [place] [address] Performed By: #### 2 777-1, 25828-9, 51904-2 ####[facility]ORATORYCLIA [id number] [place] [address] [place] NURSING PROGon 07-30-2021 NURSING PROG Normal [facility] Phosphate SerPl-mCncon 07-30 Phosphate [Mass/Vol] 2.4 mg/dL Low 2.7-4.8 [facility] Comment on above: Order Comment: Speci men Type: BLOOD SPECIMENOrdering Facility: [facility] Address: [address] [place] [address] Performed By: #### 2 777-1, 63560-6, 73969-5 ####[facility]ATORYCLIA [id number] [address] Prot CSF-mCncon 07-30-2021 Protein (CSF) [Mass/Vol] 50 mg/dL High 15-45 [facility] Comment on above: Order Comment: Speci men Type: CEREBROSPINAL FLUIDOrdering Facility: [facility] Address: [address] [place] [address] Performed By: #### 2 342-4, 2880-3 ####[facility]ENTERCL[facility] [id number] [address] aPTT PPPon 07-30-2021 aPTT Coag (PPP) [Time] 64.1 s High 23.0-32.4 [facility] Comment on above: Order Comment: Speci men Type: BLOOD SPECIMENOrdering Facility: [facility] Address: [address] [place] [address] Performed By: #### 1 4979-9 ####[facility]ENTERCLIA [id number] [address] Bacteria CSF Culton 07-30-19 22 Bacteria identified Cx Nom (CSF) CULTURE, CSF: No growth 14 days GRAM STAIN: No cells or organisms seen Gram stain performed on cytospun specimen. Gram stain confirmed by microbiology Normal [facility] Comment on above: Performed By: #### 6 06-4 ####[facility]ORYCLIA [id number] [address] [place] CASE MANAGEMon 07-29-2021 CASE MANAGEM Normal [facility] CBC W Auto Differential pane l (Bld)on 07-29-2021 Basophils (Bld) [#/Vol] 0.03 10*3/uL Normal <0.11 [facility] Comment on above: Order Comment: Speci men Type: BLOOD SPECIMENOrdering Facility: [facility] Address: [address] [place] [address] Performed By: #### 5 7021-8 ####[facility]ATORYCLIA [id number] [address] [place] Basophils/100 WBC (Bld) 0.3 % Normal [facility] Comment on above: Order Comment: Speci men Type: BLOOD SPECIMENOrdering Facility: [facility] Address: [address] [place] [address] Performed By: #### 5 7021-8 ####[facility]ORYCLIA [id number] [address] [place] Differential cell count method Nom (Bld) Auto Normal [facility] Comment on above: Order Comment: Speci men Type: BLOOD SPECIMENOrdering Facility: [facility] Address: [address] [place] [address] Performed By: #### 5 7021-8 ####[facility]ORYCLIA [id number] [address] [place] Eosinophils (Bld) [#/Vol] 0.40 10*3/uL Normal <0.46 [facility] Comment on above: Order Comment: Speci men Type: BLOOD SPECIMENOrdering Facility: [facility] Address: [address] [place] [address] Performed By: #### 5 7021-8 ####[facility]ORYCLIA [id number] [address] [place] Eosinophils/100 WBC (Bld) 3.9 % Normal [facility] Comment on above: Order Comment: Speci men Type: BLOOD SPECIMENOrdering Facility: [facility] Address: [address] [place] [address] Performed By: #### 5 7021-8 ####[facility]ORYCLIA [id number] [address] Erythrocyte distribution width (RBC) [Ratio] 17.1 % High 11.5-15.0 [facility] Comment on above: Order Comment: Speci men Type: BLOOD SPECIMENOrdering Facility: [facility] Address: [address] [place] [address] Performed By: #### 5 7021-8 ####[facility]ATORYCLIA [id number] [address] Hematocrit (Bld) [Volume fraction] 32.0 % Low 39.0-51.0 [facility] Comment on above: Order Comment: Speci men Type: BLOOD SPECIMENOrdering Facility: [facility] Address: [address] [place] [address] Performed By: #### 5 7021-8 ####[facility]ENTERCLIA [id number] [address] STATES OF [facility] Hemoglobin (Bld) [Mass/Vol] 9.7 g/dL Low 13.0-17.0 [facility] Comment on above: Order Comment: Speci men Type: BLOOD SPECIMENOrdering Facility: [facility] Address: [address] [place] [address] Performed By: #### 5 7021-8 ####[facility]ATORYCLIA [id number] [address] IMMATURE GRAN % 0.6 % Normal [facility] Comment on above: Order Comment: Speci men Type: BLOOD SPECIMENOrdering Facility: [facility] Address: [address] [place] [address] Performed By: #### 5 7021-8 ####[facility]ATORYCLIA [id number] [address] IMMATURE GRAN ABS 0.06 k/uL Normal <0.10 [facility] Comment on above: Order Comment: Speci men Type: BLOOD SPECIMENOrdering Facility: [facility] Address: [address] [place] [address] Performed By: #### 5 7021-8 ####[facility]ORATORYCLIA [id number] [address] STATES OF [facility] Lymphocytes (Bld) [#/Vol] 1.96 10*3/uL Normal 1.00-4.00 [facility] Comment on above: Order Comment: Speci men Type: BLOOD SPECIMENOrdering Facility: [facility] Address: [address] [place] [address] Performed By: #### 5 7021-8 ####[facility]ATORYCLIA [id number] [address] Lymphocytes/100 WBC (Bld) 19.0 % Normal [facility] Comment on above: Order Comment: Speci men Type: BLOOD SPECIMENOrdering Facility: [facility] Address: [address] [place] [address] Performed By: #### 5 7021-8 ####[facility]ORATORYCLIA [id number] [address] STATES OF [facility] MCH (RBC) [Entitic mass] 28.0 pg Normal 26.0-34.0 [facility] Comment on above: Order Comment: Speci men Type: BLOOD SPECIMENOrdering Facility: [facility] Address: [address] [place] [address] Performed By: #### 5 7021-8 ####[facility]ORATORYCLIA [id number] [address] [place] MCHC (RBC) [Mass/Vol] 30.3 g/dL Low 30.5-36.0 [facility] Comment on above: Order Comment: Speci men Type: BLOOD SPECIMENOrdering Facility: [facility] Address: [address] [place] [address] Performed By: #### 5 7021-8 ####[facility]ORATORYCLIA [id number] [address] [place] MCV (RBC) [Entitic vol] 92.5 fL Normal 80.0-100.0 [facility] Comment on above: Order Comment: Speci men Type: BLOOD SPECIMENOrdering Facility: [facility] Address: [address] [place] [address] Performed By: #### 5 7021-8 ####[facility]ATORYCLIA [id number] [address] [place] Monocytes (Bld) [#/Vol] 0.53 10*3/uL Normal <0.87 [facility] Comment on above: Order Comment: Speci men Type: BLOOD SPECIMENOrdering Facility: [facility] Address: [address] [place] [address] Performed By: #### 5 7021-8 ####[facility]ATORYCLIA [id number] [address] OF [place] Monocytes/100 WBC (Bld) 5.2 % Normal [facility] Comment on above: Order Comment: Speci men Type: BLOOD SPECIMENOrdering Facility: [facility] Address: [address] [place] [address] Performed By: #### 5 7021-8 ####[facility]ATORYCLIA [id number] [address] [place] Neutrophils (Bld) [#/Vol] 7.31 10*3/uL Normal 1.45-7.50 [facility] Comment on above: Order Comment: Speci men Type: BLOOD SPECIMENOrdering Facility: [facility] Address: [address] [place] [address] Performed By: #### 5 7021-8 ####[facility]ATORYCLIA [id number] [address] [place] Neutrophils/100 WBC (Bld) 71.0 % Normal [facility] Comment on above: Order Comment: Speci men Type: BLOOD SPECIMENOrdering Facility: [facility] Address: [address] [place] [address] Performed By: #### 5 7021-8 ####[facility]ATORYCLIA [id number] [address] Nucleated RBC (Bld) [#/Vol] 10*3/uL Normal <0.01 [facility] Comment on above: Order Comment: Speci men Type: BLOOD SPECIMENOrdering Facility: [facility] Address: [address] [place] [address] Performed By: #### 5 7021-8 ####[facility]ATORYCLIA [id number] [address] OF [place] Nucleated RBC/100 WBC (Bld) [Ratio] 0.0 /100 WBC Normal [facility] Comment on above: Order Comment: Speci men Type: BLOOD SPECIMENOrdering Facility: [facility] Address: [address] [place] [address] Performed By: #### 5 7021-8 ####[facility]ATORYCLIA [id number] [address] [place] Platelet mean volume (Bld) [Entitic vol] 11.2 fL Normal 9.0-12.7 [facility] Comment on above: Order Comment: Speci men Type: BLOOD SPECIMENOrdering Facility: [facility] Address: [address] [place] [address] Performed By: #### 5 7021-8 ####[facility]ORATORYCLIA [id number] [address] [place] Platelets (Bld) [#/Vol] 276 10*3/uL Normal 150-400 [facility] Comment on above: Order Comment: Speci men Type: BLOOD SPECIMENOrdering Facility: [facility] Address: [address] [place] [address] Performed By: #### 5 7021-8 ####[facility]ATORYCLIA [id number] [address] [place] RBC (Bld) [#/Vol] 3.46 10*6/uL Low 4.20-6.00 [facility] Comment on above: Order Comment: Speci men Type: BLOOD SPECIMENOrdering Facility: [facility] Address: [address] [place] [address] Performed By: #### 5 7021-8 ####[facility]ORATORYCLIA [id number] [place] [address] [place] WBC (Bld) [#/Vol] 10.29 10*3/uL Normal 3.70-11.00 [facility] Comment on above: Order Comment: Speci men Type: BLOOD SPECIMENOrdering Facility: [facility] Address: [address] [place] [address] Performed By: #### 5 7021-8 ####[facility]ORATORYCLIA [id number] [address] OF [facility] NURSING PROGon 07-29-2021 NURSING PROG Normal [facility] THERAPY NTon 07-29-2021 THERAPY NT Normal [facility] aPTT PPPon 07-29-2021 aPTT Coag (PPP) [Time] 59.2 s High 23.0-32.4 [facility] Comment on above: Order Comment: Speci men Type: BLOOD SPECIMENOrdering Facility: [facility] Address: [address] [place] [address] Performed By: #### 1 4979-9 ####[facility]ORATORYCLIA [id number] [address] [place] ALLIED HEALTHon 07-28-2021 ALLIED HEALTH Normal [facility] Basic metabolic 2000 panelon 07-28-2021 Anion gap [Moles/Vol] 7 mmol/L Low 9-18 [facility] Comment on above: Order Comment: Speci men Type: BLOOD SPECIMENOrdering Facility: [facility] Address: [address] [place] [place] [address] Performed By: #### 1 4338-8, 22403-6, 2777-1, 55401-6 ####[facility]ATORYCLIA [id number] [address] [place] Calcium [Mass/Vol] 9.0 mg/dL Normal 8.5-10.2 [facility] Comment on above: Order Comment: Speci men Type: BLOOD SPECIMENOrdering Facility: [facility] Address: [address] [place] [address] Performed By: #### 1 4338-8, 49156-0, 277-, 84885-6 ####[facility]ATORYCLIA [id number] [place] [address] [place] Chloride [Moles/Vol] 94 mmol/L Low 97-105 [facility] Comment on above: Order Comment: Speci men Type: BLOOD SPECIMENOrdering Facility: [facility] Address: [address] [place] [address] Performed By: #### 1 4338-8, 97841-8, 27711-04, 64921-3 ####[facility]ENTERCLIA [id number] [address] [place] CO2 [Moles/Vol] 31 mmol/L High 22-30 [facility] Comment on above: Order Comment: Speci men Type: BLOOD SPECIMENOrdering Facility: [facility] Address: [address] [place] [address] Performed By: #### 1 4338-8, 68803-1, 2776-05, 38156-6 ####[facility]ENTERCLIA [id number] [address] STATES OF [facility] Creatinine [Mass/Vol] 0.75 mg/dL Normal 0.73-1.22 [facility] Comment on above: Order Comment: Speci men Type: BLOOD SPECIMENOrdering Facility: [facility] Address: [address] [place] [address] Performed By: #### 1 4338-8, 02793-4, 27711-04, 43693-8 ####[facility]ATORYCLIA [id number] [address] ESTIMATED GLOMERULAR FILTRATION RATE 98 mL/min/1.73m??? Normal >=60 [facility] Comment on above: Order Comment: Speci men Type: BLOOD SPECIMENOrdering Facility: [facility] Address: [address] [place] [address] Result Comment: Luzmaria mated Glomerular Filtration Rate [...] actual GFR. Performed By: #### 1 4338-8, 53352-7, 2777-, 19843-4 ####[facility]ORATORYCLIA [id number] [place] [address] [place] Glucose [Mass/Vol] 122 mg/dL High 74-99 [facility] Comment on above: Order Comment: Speccara feldman Type: BLOOD SPECIMENOrdering Facility: [facility] Address: [address] Result Comment: The [place] [employer] (ADA) provides guidance for cutoff [...] Standards of Medical Care in Diabetes 2016, [place] [employer]. Diabetes Care. 2016.39(Suppl 1). Performed By: #### 1 4338-8, 94327-1, 2777-, 35955-6 ####[facility]ORATORYCLIA [id number] [place] [address] [place] Potassium [Moles/Vol] 4.0 mmol/L Normal 3.7-5.1 [facility] Comment on above: Order Comment: Shira feldman Type: BLOOD SPECIMENOrdering Facility: [facility] Address: [address] [place] [id number] Performed By: #### 1 4338-8, 98649-6, 2777-1, 89017-1 ####[facility]ATORYCLIA [id number] [place] [address] [place] Sodium [Moles/Vol] 132 mmol/L Low 136-144 [facility] Comment on above: Order Comment: Speci men Type: BLOOD SPECIMENOrdering Facility: [facility] Address: [address] [place] [address] Performed By: #### 1 4338-8, 39070-9, 7-1, 37846-6 ####[facility]ATORYCLIA [id number] [place] [address] [place] Urea nitrogen [Mass/Vol] 34 mg/dL High 01-28 [facility] Comment on above: Order Comment: Speci men Type: BLOOD SPECIMENOrdering Facility: [facility] Address: [address] [place] [address] Performed By: #### 1 4338-8, 08760-8, 2777-1, 31047-3 ####[facility]ORYCLIA [id number] [address] [place] CBC W Auto Differential pane l (Bld)on 07-28-2021 Basophils (Bld) [#/Vol] 0.04 10*3/uL Normal <0.11 [facility] Comment on above: Order Comment: Speci men Type: BLOOD SPECIMENOrdering Facility: [facility] Address: [address] [place] [address] Performed By: #### 5 7021-8 ####[facility]ORYCLIA [id number] [address] [place] Basophils/100 WBC (Bld) 0.5 % Normal [facility] Comment on above: Order Comment: Speci men Type: BLOOD SPECIMENOrdering Facility: [facility] Address: [address] [place] [address] Performed By: #### 5 7021-8 ####[facility]ORYCLIA [id number] [address] Differential cell count method Nom (Bld) Auto Normal [facility] Comment on above: Order Comment: Speci men Type: BLOOD SPECIMENOrdering Facility: [facility] Address: [address] [place] [address] Performed By: #### 5 7021-8 ####[facility]ORYCLIA [id number] [address] [place] Eosinophils (Bld) [#/Vol] 0.30 10*3/uL Normal <0.46 [facility] Comment on above: Order Comment: Speci men Type: BLOOD SPECIMENOrdering Facility: [facility] Address: [address] [place] [address] Performed By: #### 5 7021-8 ####[facility]ORYCLIA [id number] [address] Eosinophils/100 WBC (Bld) 3.4 % Normal [facility] Comment on above: Order Comment: Speci men Type: BLOOD SPECIMENOrdering Facility: [facility] Address: [address] [place] [address] Performed By: #### 5 7021-8 ####[facility]ATORYCLIA [id number] [address] [place] Erythrocyte distribution width (RBC) [Ratio] 16.9 % High 11.5-15.0 [facility] Comment on above: Order Comment: Speci men Type: BLOOD SPECIMENOrdering Facility: [facility] Address: [address] [place] [address] Performed By: #### 5 7021-8 ####[facility]ORYCLIA [id number] [address] Hematocrit (Bld) [Volume fraction] 30.3 % Low 39.0-51.0 [facility] Comment on above: Order Comment: Speci men Type: BLOOD SPECIMENOrdering Facility: [facility] Address: [address] [place] [address] Performed By: #### 5 7021-8 ####[facility]ORYCLIA [id number] [address] STATES OF [facility] Hemoglobin (Bld) [Mass/Vol] 9.2 g/dL Low 13.0-17.0 [facility] Comment on above: Order Comment: Speci men Type: BLOOD SPECIMENOrdering Facility: [facility] Address: [address] [place] [address] Performed By: #### 5 7021-8 ####[facility]ORYCLIA [id number] [address] IMMATURE GRAN % 0.6 % Normal [facility] Comment on above: Order Comment: Speci men Type: BLOOD SPECIMENOrdering Facility: [facility] Address: [address] [place] [address] Performed By: #### 5 7021-8 ####[facility]ORYCLIA [id number] [address] IMMATURE GRAN ABS 0.05 k/uL Normal <0.10 [facility] Comment on above: Order Comment: Speci men Type: BLOOD SPECIMENOrdering Facility: [facility] Address: [address] [place] [address] Performed By: #### 5 7021-8 ####[facility]ORYCLIA [id number] [address] [place] Lymphocytes (Bld) [#/Vol] 1.68 10*3/uL Normal 1.00-4.00 [facility] Comment on above: Order Comment: Speci men Type: BLOOD SPECIMENOrdering Facility: [facility] Address: [address] [place] [address] Performed By: #### 5 7021-8 ####[facility]ORYCLIA [id number] [address] Lymphocytes/100 WBC (Bld) 19.2 % Normal [facility] Comment on above: Order Comment: Speci men Type: BLOOD SPECIMENOrdering Facility: [facility] Address: [address] [place] [address] Performed By: #### 5 7021-8 ####[facility]ORYCLIA [id number] [address] MCH (RBC) [Entitic mass] 28.4 pg Normal 26.0-34.0 [facility] Comment on above: Order Comment: Speci men Type: BLOOD SPECIMENOrdering Facility: [facility] Address: [address] [place] [address] Performed By: #### 5 7021-8 ####[facility]ATORYCLIA [id number] [address] STATES OF [facility] MCHC (RBC) [Mass/Vol] 30.4 g/dL Low 30.5-36.0 [facility] Comment on above: Order Comment: Speci men Type: BLOOD SPECIMENOrdering Facility: [facility] Address: [address] [place] [address] Performed By: #### 5 7021-8 ####[facility]ORYCLIA [id number] [address] STATES OF [facility] MCV (RBC) [Entitic vol] 93.5 fL Normal 80.0-100.0 [facility] Comment on above: Order Comment: Speci men Type: BLOOD SPECIMENOrdering Facility: [facility] Address: [address] [place] [address] Performed By: #### 5 7021-8 ####[facility]ORYCLIA [id number] [address] Monocytes (Bld) [#/Vol] 0.58 10*3/uL Normal <0.87 [facility] Comment on above: Order Comment: Speci men Type: BLOOD SPECIMENOrdering Facility: [facility] Address: [address] [place] [address] Performed By: #### 5 7021-8 ####[facility]ORYCLIA [id number] [address] Monocytes/100 WBC (Bld) 6.6 % Normal [facility] Comment on above: Order Comment: Speci men Type: BLOOD SPECIMENOrdering Facility: [facility] Address: [address] [place] [address] Performed By: #### 5 7021-8 ####[facility]ORYCLIA [id number] [address] [place] Neutrophils (Bld) [#/Vol] 6.11 10*3/uL Normal 1.45-7.50 [facility] Comment on above: Order Comment: Speci men Type: BLOOD SPECIMENOrdering Facility: [facility] Address: [address] [place] [address] Performed By: #### 5 7021-8 ####[facility]ORYCLIA [id number] [address] [place] Neutrophils/100 WBC (Bld) 69.7 % Normal [facility] Comment on above: Order Comment: Speci men Type: BLOOD SPECIMENOrdering Facility: [facility] Address: [address] [place] [address] Performed By: #### 5 7021-8 ####[facility]ORYCLIA [id number] [place] [address] [place] Nucleated RBC (Bld) [#/Vol] 10*3/uL Normal <0.01 [facility] Comment on above: Order Comment: Speci men Type: BLOOD SPECIMENOrdering Facility: [facility] Address: [address] [place] [address] Performed By: #### 5 7021-8 ####[facility]ORATORYCLIA [id number] [address] [place] Nucleated RBC/100 WBC (Bld) [Ratio] 0.0 /100 WBC Normal [facility] Comment on above: Order Comment: Speci men Type: BLOOD SPECIMENOrdering Facility: [facility] [facility] Address: [address] [place] [address] Performed By: #### 5 7021-8 ####[facility]ATORYCLIA [id number] [address] [place] Platelet mean volume (Bld) [Entitic vol] 11.3 fL Normal 9.0-12.7 [facility] Comment on above: Order Comment: Speci men Type: BLOOD SPECIMENOrdering Facility: [facility] Address: [address] [place] [address] Performed By: #### 5 7021-8 ####[facility]ATORYCLIA [id number] [place] [address] [place] Platelets (Bld) [#/Vol] 238 10*3/uL Normal 150-400 [facility] Comment on above: Order Comment: Speci men Type: BLOOD SPECIMENOrdering Facility: [facility] Address: [address] [place] [address] Performed By: #### 5 7021-8 ####[facility]ORATORYCLIA [id number] [place] [address] [place] RBC (Bld) [#/Vol] 3.24 10*6/uL Low 4.20-6.00 [facility] Comment on above: Order Comment: Speci men Type: BLOOD SPECIMENOrdering Facility: [facility] Address: [address] [place] [address] Performed By: #### 5 7021-8 ####[facility]ATORYCLIA [id number] [place] [address] [place] WBC (Bld) [#/Vol] 8.76 10*3/uL Normal 3.70-11.00 [facility] Comment on above: Order Comment: Speci men Type: BLOOD SPECIMENOrdering Facility: [facility] Address: [address] [place] [address] Performed By: #### 5 7021-8 ####[facility]ATORYCLIA [id number] [address] [place] MRI BRAIN WO/W IVCONon 07-28 MRI BRAIN WO/W IVCON Normal [facility] Magnesium SerPl-mCncon 07-28 Magnesium [Mass/Vol] 2.5 mg/dL High 1.7-2.3 [facility] Comment on above: Order Comment: Speci men Type: BLOOD SPECIMENOrdering Facility: [facility] Address: [address] [place] [address] Performed By: #### 1 4338-8, 00346-1, 2777-1, 52290-7 ####[facility]ATORYCLIA [id number] [address] OF [facility] NURSING PROGon 07-28-2021 NURSING PROG Normal [facility] NURSING PROG Normal [facility] Phosphate SerPl-mCncon 07-28 Phosphate [Mass/Vol] 2.8 mg/dL Normal 2.7-4.8 [facility] Comment on above: Order Comment: Speci men Type: BLOOD SPECIMENOrdering Facility: [facility] Address: [address] [place] [address] Performed By: #### 1 4338-8, 72897-5, 2777-1, 24208-6 ####[facility]ATORYCLIA [id number] [address] [place] Prealbumin [Mass/Vol]on 07-06 Prealbumin Nephelometry [Mass/Vol] 25 mg/dL Normal 17-36 [facility] Comment on above: Order Comment: Speci men Type: BLOOD SPECIMENOrdering Facility: [facility] Address: [address] [place] [address] Performed By: #### 1 4338-8, 79890-8, 2777-1, 00079-1 ####[facility]ATORYCLIA [id number] [address] [place] aPTT PPPon 07-28-2021 aPTT Coag (PPP) [Time] 53.0 s High 23.0-32.4 [facility] Comment on above: Order Comment: Speci men Type: BLOOD SPECIMENOrdering Facility: [facility] Address: [address] [place] [address] Performed By: #### 1 4979-9 ####[facility]ATORYCLIA [id number] [address] aPTT Coag (PPP) [Time] 57.2 s High 23.0-32.4 [facility] Comment on above: Order Comment: Speci men Type: BLOOD SPECIMENOrdering Facility: [facility] Address: [address] [place] [address] Performed By: #### 1 4979-9 ####[facility]ATORYCLIA [id number] [address] [place] Bacteria CSF Culton 07-28-19 Bacteria identified Cx Nom (CSF) CULTURE, CSF: No growth 14 days GRAM STAIN: No organisms seen Rare Polymorphonuclear leukocytes Rare Red Blood Cells Gram stain performed on cytospun specimen. Normal [facility] Comment on above: Performed By: #### 6 06-4 ####[facility]ATORYCLIA [id number] [address] [place] Bacteria Spec Resp Culton Bacteria identified Respiratory culture Nom (Unsp spec) CULTURE, RESPIRATORY: Rare Normal respiratory chris present GRAM STAIN: No organisms seen Rare Polymorphonuclear leukocytes Rare Epithelial cells Normal [facility] Comment on above: Performed By: #### 3 2355-0 ####[facility]ATORYCLIA [id number] [address] [place] CASE MANAGEMon 07-27-2021 CASE MANAGEM Normal [facility] CBC W Auto Differential pane l (Bld)on 07-27-2021 Basophils (Bld) [#/Vol] 0.04 10*3/uL Normal <0.11 [facility] Comment on above: Order Comment: Speci men Type: BLOOD SPECIMENOrdering Facility: [facility] Address: [address] [address] Performed By: #### 5 7021-8 ####[facility]ATORYCLIA [id number] [address] Basophils/100 WBC (Bld) 0.4 % Normal [facility] Comment on above: Order Comment: Speci men Type: BLOOD SPECIMENOrdering Facility: [facility] Address: [address] [place] [address] Performed By: #### 5 7021-8 ####[facility]ATORYCLIA [id number] [address] [place] Differential cell count method Nom (Bld) Auto Normal [facility] Comment on above: Order Comment: Speci men Type: BLOOD SPECIMENOrdering Facility: [facility] Address: [address] [place] [address] Performed By: #### 5 7021-8 ####[facility]ATORYCLIA [id number] [address] [place] Eosinophils (Bld) [#/Vol] 0.50 10*3/uL High <0.46 [facility] Comment on above: Order Comment: Speci men Type: BLOOD SPECIMENOrdering Facility: [facility] Address: [address] [place] [address] Performed By: #### 5 7021-8 ####[facility]ORYCLIA [id number] [address] [place] Eosinophils/100 WBC (Bld) 5.2 % Normal [facility] Comment on above: Order Comment: Speci men Type: BLOOD SPECIMENOrdering Facility: [facility] Address: [address] [place] [address] Performed By: #### 5 7021-8 ####[facility]ATORYCLIA [id number] [address] [place] Erythrocyte distribution width (RBC) [Ratio] 16.8 % High 11.5-15.0 [facility] Comment on above: Order Comment: Speci men Type: BLOOD SPECIMENOrdering Facility: [facility] Address: [address] [place] [address] Performed By: #### 5 7021-8 ####[facility]ATORYCLIA [id number] [address] Hematocrit (Bld) [Volume fraction] 29.8 % Low 39.0-51.0 [facility] Comment on above: Order Comment: Speci men Type: BLOOD SPECIMENOrdering Facility: [facility] Address: [address] [place] [address] Performed By: #### 5 7021-8 ####[facility]ATORYCLIA [id number] [address] [place] Hemoglobin (Bld) [Mass/Vol] 9.0 g/dL Low 13.0-17.0 [facility] Comment on above: Order Comment: Speci men Type: BLOOD SPECIMENOrdering Facility: [facility] Address: [address] [place] [address] Performed By: #### 5 7021-8 ####[facility]ATORYCLIA [id number] [address] IMMATURE GRAN % 0.6 % Normal [facility] Comment on above: Order Comment: Speci men Type: BLOOD SPECIMENOrdering Facility: [facility] Address: [address] [place] [address] Performed By: #### 5 7021-8 ####[facility]ATORYCLIA [id number] [address] IMMATURE GRAN ABS 0.06 k/uL Normal <0.10 [facility] Comment on above: Order Comment: Speci men Type: BLOOD SPECIMENOrdering Facility: [facility] Address: [address] [place] [address] Performed By: #### 5 7021-8 ####[facility]ORYCLIA [id number] [address] [place] Lymphocytes (Bld) [#/Vol] 1.73 10*3/uL Normal 1.00-4.00 [facility] Comment on above: Order Comment: Speci men Type: BLOOD SPECIMENOrdering Facility: [facility] Address: [address] [place] [address] Performed By: #### 5 7021-8 ####[facility]ORYCLIA [id number] [address] Lymphocytes/100 WBC (Bld) 17.9 % Normal [facility] Comment on above: Order Comment: Speci men Type: BLOOD SPECIMENOrdering Facility: [facility] Address: [address] [place] [address] Performed By: #### 5 7021-8 ####[facility]ATORYCLIA [id number] [address] MCH (RBC) [Entitic mass] 28.1 pg Normal 26.0-34.0 [facility] Comment on above: Order Comment: Speci men Type: BLOOD SPECIMENOrdering Facility: [facility] Address: [address] [place] [address] Performed By: #### 5 7021-8 ####[facility]ATORYCLIA [id number] [address] MCHC (RBC) [Mass/Vol] 30.2 g/dL Low 30.5-36.0 [facility] Comment on above: Order Comment: Speci men Type: BLOOD SPECIMENOrdering Facility: [facility] Address: [address] [place] [address] Performed By: #### 5 7021-8 ####[facility]ATORYCLIA [id number] [address] MCV (RBC) [Entitic vol] 93.1 fL Normal 80.0-100.0 [facility] Comment on above: Order Comment: Speci men Type: BLOOD SPECIMENOrdering Facility: [facility] Address: [address] [place] [address] Performed By: #### 5 7021-8 ####[facility]ATORYCLIA [id number] [address] Monocytes (Bld) [#/Vol] 0.59 10*3/uL Normal <0.87 [facility] Comment on above: Order Comment: Speci men Type: BLOOD SPECIMENOrdering Facility: [facility] Address: [address] [place] [address] Performed By: #### 5 7021-8 ####[facility]ORYCLIA [id number] [address] [place] Monocytes/100 WBC (Bld) 6.1 % Normal [facility] Comment on above: Order Comment: Speci men Type: BLOOD SPECIMENOrdering Facility: [facility] Address: [address] [place] [address] Performed By: #### 5 7021-8 ####[facility]ATORYCLIA [id number] [place] [address] [place] Neutrophils (Bld) [#/Vol] 6.75 10*3/uL Normal 1.45-7.50 [facility] Comment on above: Order Comment: Speci men Type: BLOOD SPECIMENOrdering Facility: [facility] Address: [address] [place] [address] Performed By: #### 5 7021-8 ####[facility]ORYCLIA [id number] [address] [place] Neutrophils/100 WBC (Bld) 69.8 % Normal [facility] Comment on above: Order Comment: Speci men Type: BLOOD SPECIMENOrdering Facility: [facility] Address: [address] [place] [address] Performed By: #### 5 7021-8 ####[facility]ORYCLIA [id number] [place] [address] [place] Nucleated RBC (Bld) [#/Vol] 10*3/uL Normal <0.01 [facility] Comment on above: Order Comment: Speci men Type: BLOOD SPECIMENOrdering Facility: [facility] Address: [address] [place] [address] Performed By: #### 5 7021-8 ####[facility]ORATORYCLIA [id number] [address] [place] Nucleated RBC/100 WBC (Bld) [Ratio] 0.0 /100 WBC Normal [facility] Comment on above: Order Comment: Speci men Type: BLOOD SPECIMENOrdering Facility: [facility] Address: [address] [place] [address] Performed By: #### 5 7021-8 ####[facility]ORYCLIA [id number] [place] [address] [place] Platelet mean volume (Bld) [Entitic vol] 11.3 fL Normal 9.0-12.7 [facility] Comment on above: Order Comment: Speci men Type: BLOOD SPECIMENOrdering Facility: [facility] Address: [address] [place] [address] Performed By: #### 5 7021-8 ####[facility]ORYCLIA [id number] [place] [address] [place] Platelets (Bld) [#/Vol] 227 10*3/uL Normal 150-400 [facility] Comment on above: Order Comment: Speci men Type: BLOOD SPECIMENOrdering Facility: [facility] Address: [address] [place] [address] Performed By: #### 5 7021-8 ####[facility]ORYCLIA [id number] [place] [address] [place] RBC (Bld) [#/Vol] 3.20 10*6/uL Low 4.20-6.00 [facility] Comment on above: Order Comment: Speci men Type: BLOOD SPECIMENOrdering Facility: [facility] Address: [address] [place] [address] Performed By: #### 5 7021-8 ####[facility]ORYCLIA [id number] [place] [address] [place] WBC (Bld) [#/Vol] 9.67 10*3/uL Normal 3.70-11.00 [facility] Comment on above: Order Comment: Speci men Type: BLOOD SPECIMENOrdering Facility: [facility] Address: [address] [place] [address] Performed By: #### 5 7021-8 ####[facility]ATORYCLIA [id number] [address] OF [facility] CONSULT PROGon 07-27-2021 CONSULT PROG Normal [facility] CSF MANUAL DIFFon 07-27-2021 DIF TTL, CSF 100 cells counted Normal [facility] Comment on above: Order Comment: Speci men Type: CEREBROSPINAL FLUIDOrdering Facility: [facility] Address: [address] [place] [address] Performed By: #### L [id number], 92690-6, [id number] ####[facility]ORYCLIA [id number] [place] [address] [place] LYMPH%, CSF 75 % Normal 50-90 [facility] Comment on above: Order Comment: Speci men Type: CEREBROSPINAL FLUIDOrdering Facility: [facility] Address: [address] [place] [address] Performed By: #### L [id number], 70195-6, [id number] ####[facility]ATORYCLIA [id number] [place] [address] [place] MONO%, CSF 22 % Normal 10-50 [facility] Comment on above: Order Comment: Speci men Type: CEREBROSPINAL FLUIDOrdering Facility: [facility] Address: [address] [place] [address] Performed By: #### L LR5320, 81107-2, SAI3031 ####[facility]ORYCLIA [id number] [place] [address] [place] NEUT%, CSF 2 % Normal 0-3 [facility] Comment on above: Order Comment: Speci men Type: CEREBROSPINAL FLUIDOrdering Facility: [facility] Address: [address] [place] [address] Performed By: #### L [id number], 37642-5, [id number] ####[facility]ORYCLIA [id number] [address] [place] OTHER CL%, CSF 1 % Normal [facility] Comment on above: Order Comment: Speci men Type: CEREBROSPINAL FLUIDOrdering Facility: [facility] Address: [address] [place] [address] Result Comment: Path ologist review of microscopy results to follow Performed By: #### L TX1337, 04104-6, [id number] ####[facility]ORYCLIA [id number] [address] CSF PATHOLOGIST INTERP (LAB REFLEX ORDER-NO BILL)on 07-27-2021 CSF STAFF REVIEW Negative Normal [facility] Comment on above: Order Comment: Speci men Type: CEREBROSPINAL FLUIDOrdering Facility: [facility] Address: [address] [place] [address] Performed By: #### L SY4869, 99447-7, [id number] ####[facility]ATORYCLIA [id number] [address] Pathologist name Reviewed by Amador Stevens MD [facility] Comment on above: Order Comment: Speci men Type: CEREBROSPINAL FLUIDOrdering Facility: [facility] Address: [address] [place] [address] Performed By: #### L OV6433, 41034-5, [id number] ####[facility]ATORYCLIA [id number] [address] Cell count panel (CSF)on Clarity (CSF) Clear Normal Clear [facility] Comment on above: Order Comment: Speci men Type: CEREBROSPINAL FLUIDOrdering Facility: [facility] Address: [address] [place] [address] Performed By: #### L BD1341, 25200-1, [id number] ####[facility]ORYCLIA [id number] [address] Clarity (Unsp spec) Not Indicated Normal Clear [facility] Comment on above: Order Comment: Speci men Type: CEREBROSPINAL FLUIDOrdering Facility: [facility] Address: [address] [place], [place] [address] Performed By: #### L [id number], 56231-2, [id number] ####[facility]ORYCLIA [id number] [address] Color (CSF) Colorless Normal Colorless [facility] Comment on above: Order Comment: Speci men Type: CEREBROSPINAL FLUIDOrdering Facility: [facility] Address: [address] [place] [address] Performed By: #### L QW0166, 14726-0, [id number] ####[facility]ORYCLIA [id number] [address] Color (Spun CSF) Not Indicated Normal Colorless [facility] Comment on above: Order Comment: Speci men Type: CEREBROSPINAL FLUIDOrdering Facility: [facility] Address: [address] [place] [address] Performed By: #### L [id number], 36872-1, [id number] ####[facility]ORYCLIA [id number] [address] CSF TUBE [employer]BER [employer] Normal [facility] Comment on above: Order Comment: Speci men Type: CEREBROSPINAL FLUIDOrdering Facility: [facility] Address: [address] [place] [address] Performed By: #### L HK2994, 49752-7, VSY2702 ####[facility]ORYCLIA [id number] [address] [place] RBC Manual cnt (CSF) [#/Vol] 39 cells/uL High 0-5 [facility] Comment on above: Order Comment: Speci men Type: CEREBROSPINAL FLUIDOrdering Facility: [facility] Address: [address] [place] [address] Performed By: #### L CY9438, 56100-7, [id number] ####[facility]ORYCLIA [id number] [address] [place] WBC Manual cnt (CSF) [#/Vol] 14 cells/uL High 0-5 [facility] Comment on above: Order Comment: Speci men Type: CEREBROSPINAL FLUIDOrdering Facility: [facility] Address: [address] [place] [address] Performed By: #### L [id number], 52743-2, [id number] ####[facility]ATORYCLIA [id number] [place] [address] [place] Glucose CSF-mCncon Glucose (CSF) [Mass/Vol] 64 mg/dL Normal 40-70 [facility] Comment on above: Order Comment: Speci men Type: CEREBROSPINAL FLUIDOrdering Facility: [facility] Address: [address] [place] [address] Result Comment: Lumb ar CSF glucose values of healthy patients are approximately 60% of the plasma values and must always be compared with a concurrently measured plasma value for adequate clinical interpretation.References: 1. Glucose HK (GLUC3) [package insert V 12.0 [place]]. [employer], [place], [place]. September 2015. 2. Michelle Moore, Loki HGarfield (2015). Chapter 7: Glucose and Lactate. FGarfield Alcocer al.(eds.), Cerebrospinal Fluid in Clinical Neurology. Pepin: [employer]. Performed By: #### 2 342-4, 2880-3 ####[facility]ATORYCLIA [id number] [place] [address] [place] NUTRITIONon 07-27-2021 NUTRITION Normal [facility] Prot CSF-mCncon 07-27-2021 Protein (CSF) [Mass/Vol] 58 mg/dL High 15-45 [facility] Comment on above: Order Comment: Speci men Type: CEREBROSPINAL FLUIDOrdering Facility: [facility] Address: [address] [place] [address] Performed By: #### 2 342-4, 2880-3 ####[facility]ATORYCLIA [id number] [place] [address] [place] aPTT PPPon 07-27-2021 aPTT Coag (PPP) [Time] 68.4 s High 23.0-32.4 [facility] Comment on above: Order Comment: Speci men Type: BLOOD SPECIMENOrdering Facility: [facility] Address: [address] [place] [address] Performed By: #### 1 4979-9 ####[facility]ATORYCLIA [id number] [address] aPTT Coag (PPP) [Time] 51.3 s High 23.0-32.4 [facility] Comment on above: Order Comment: Speci men Type: BLOOD SPECIMENOrdering Facility: [facility] Address: [address] [place] [address] Performed By: #### 1 4979-9 ####[facility]ATORYCLIA [id number] [address] ALLIED HEALTHon 07-26-2021 ALLIED HEALTH HNO ID: [id number] Author: Stephanie Maldonado, manager consumer Service: Radiology Author Type: Small Business Representative Type: Allied Health Filed: 07/26/2021 4:10 PM Note Text: Spoke with nurse. Pt getting new EVD today. Try tomorrow. Normal [facility] Bacteria CSF Culton 07-27-19 22 Bacteria identified Cx Nom (CSF) Abnormal [facility] Comment on above: Performed By: #### 6 06-4 ####[facility]ATORYCLIA [id number] [address] [place] Basic metabolic 2000 panelon 07-26-2021 Anion gap [Moles/Vol] 6 mmol/L Low 9-18 [facility] Comment on above: Order Comment: Speci men Type: BLOOD SPECIMENOrdering Facility: [facility] Address: [address] [place] [address] Performed By: #### 2 4321-2 ####[facility]ATORYCLIA [id number] [address] [place] Calcium [Mass/Vol] 9.2 mg/dL Normal 8.5-10.2 [facility] Comment on above: Order Comment: Speci men Type: BLOOD SPECIMENOrdering Facility: [facility] Address: [address] [address] Performed By: #### 2 4321-2 ####[facility]ATORYCLIA [id number] [address] [place] Chloride [Moles/Vol] 99 mmol/L Normal 97-105 [facility] Comment on above: Order Comment: Speci men Type: BLOOD SPECIMENOrdering Facility: [facility] Address: [address] [place] [address] Performed By: #### 2 4321-2 ####[facility]ATORYCLIA [id number] [address] [place] CO2 [Moles/Vol] 32 mmol/L High 22-30 [facility] Comment on above: Order Comment: Speci men Type: BLOOD SPECIMENOrdering Facility: [facility] Address: [address] [place] [address] Performed By: #### 2 4321-2 ####[facility]ATORYCLIA [id number] [address] STATES OF [facility] Creatinine [Mass/Vol] 0.74 mg/dL Normal 0.73-1.22 [facility] Comment on above: Order Comment: Speci men Type: BLOOD SPECIMENOrdering Facility: [facility] Address: [address] [place] [address] Performed By: #### 2 4321-2 ####[facility]ATORYCLIA [id number] [address] ESTIMATED GLOMERULAR FILTRATION RATE 98 mL/min/1.73m??? Normal >=60 [facility] Comment on above: Order Comment: Speci men Type: BLOOD SPECIMENOrdering Facility: [facility] Address: [address] [place] [address] Result Comment: Luzmaria mated Glomerular Filtration Rate [...] actual GFR. Performed By: #### 2 4321-2 ####[facility]ATORYCLIA [id number] [place] [address] [place] Glucose [Mass/Vol] 126 mg/dL High 74-99 [facility] Comment on above: Order Comment: Shira feldman Type: BLOOD SPECIMENOrdering Facility: [facility] Address: [address] [place] [address] Result Comment: The [employer] (ADA) provides guidance for cutoff [...] Standards of Medical Care in Diabetes 2016, [employer]. Diabetes Care. 2016.39(Suppl 1). Performed By: #### 2 4321-2 ####[facility]ATORYCLIA [id number] [place] [address] [place] Potassium [Moles/Vol] 4.2 mmol/L Normal 3.7-5.1 [facility] Comment on above: Order Comment: Shira feldman Type: BLOOD SPECIMENOrdering Facility: [facility] Address: [address] [address] Performed By: #### 2 4321-2 ####[facility]ATORYCLIA [id number] [place] [address] [place] Sodium [Moles/Vol] 137 mmol/L Normal 136-144 [facility] Comment on above: Order Comment: Shira feldman Type: BLOOD SPECIMENOrdering Facility: [facility] Address: [address] [address] Performed By: #### 2 4321-2 ####[facility]ATORYCLIA [id number] [place] [address] [place] Urea nitrogen [Mass/Vol] 36 mg/dL High 9-24 [facility] Comment on above: Order Comment: Speci men Type: BLOOD SPECIMENOrdering Facility: [facility] Address: [address] [place] [address] Performed By: #### 2 4321-2 ####[facility]ATORYCLIA [id number] [address] [place] CBC W Auto Differential pane l (Bld)on 07-26-2021 Basophils (Bld) [#/Vol] 0.04 10*3/uL Normal <0.11 [facility] Comment on above: Order Comment: Speci men Type: BLOOD SPECIMENOrdering Facility: [facility] Address: [address] [place] [address] Performed By: #### 5 7021-8 ####[facility]ATORYCLIA [id number] [address] [place] Basophils/100 WBC (Bld) 0.4 % Normal [facility] Comment on above: Order Comment: Speci men Type: BLOOD SPECIMENOrdering Facility: [facility] Address: [address] [place] [address] Performed By: #### 5 7021-8 ####[facility]ORYCLIA [id number] [address] Differential cell count method Nom (Bld) Auto Normal [facility] Comment on above: Order Comment: Speci men Type: BLOOD SPECIMENOrdering Facility: [facility] Address: [address] [place] [address] Performed By: #### 5 7021-8 ####[facility]ATORYCLIA [id number] [place] [address] [place] Eosinophils (Bld) [#/Vol] 0.63 10*3/uL High <0.46 [facility] Comment on above: Order Comment: Speci men Type: BLOOD SPECIMENOrdering Facility: [facility] Address: [address] [place] [address] Performed By: #### 5 7021-8 ####[facility]ORYCLIA [id number] [address] Eosinophils/100 WBC (Bld) 5.8 % Normal [facility] Comment on above: Order Comment: Speci men Type: BLOOD SPECIMENOrdering Facility: [facility] Address: [address] [place] [address] Performed By: #### 5 7021-8 ####[facility]ORYCLIA [id number] [address] Erythrocyte distribution width (RBC) [Ratio] 16.8 % High 11.5-15.0 [facility] Comment on above: Order Comment: Speci men Type: BLOOD SPECIMENOrdering Facility: [facility] Address: [address] [place] [address] Performed By: #### 5 7021-8 ####[facility]ATORYCLIA [id number] [address] Hematocrit (Bld) [Volume fraction] 31.2 % Low 39.0-51.0 [facility] Comment on above: Order Comment: Speci men Type: BLOOD SPECIMENOrdering Facility: [facility] Address: [address] [place] [address] Performed By: #### 5 7021-8 ####[facility]ORYCLIA [id number] [address] Hemoglobin (Bld) [Mass/Vol] 9.1 g/dL Low 13.0-17.0 [facility] Comment on above: Order Comment: Speci men Type: BLOOD SPECIMENOrdering Facility: [facility] Address: [address] [place] [address] Performed By: #### 5 7021-8 ####[facility]ORYCLIA [id number] [address] IMMATURE GRAN % 0.6 % Normal [facility] Comment on above: Order Comment: Speci men Type: BLOOD SPECIMENOrdering Facility: [facility] Address: [address] [place] [address] Performed By: #### 5 7021-8 ####[facility]ORYCLIA [id number] [address] STATES OF [facility] IMMATURE GRAN ABS 0.07 k/uL Normal <0.10 [facility] Comment on above: Order Comment: Speci men Type: BLOOD SPECIMENOrdering Facility: [facility] Address: [address] [place] [address] Performed By: #### 5 7021-8 ####[facility]ORYCLIA [id number] [address] Lymphocytes (Bld) [#/Vol] 2.16 10*3/uL Normal 1.00-4.00 [facility] Comment on above: Order Comment: Speci men Type: BLOOD SPECIMENOrdering Facility: [facility] Address: [address] [place] [address] Performed By: #### 5 7021-8 ####[facility]ORYCLIA [id number] [address] Lymphocytes/100 WBC (Bld) 20.0 % Normal [facility] Comment on above: Order Comment: Speci men Type: BLOOD SPECIMENOrdering Facility: [facility] Address: [address] [place] [address] Performed By: #### 5 7021-8 ####[facility]ORYCLIA [id number] [place] [address] [place] MCH (RBC) [Entitic mass] 27.7 pg Normal 26.0-34.0 [facility] Comment on above: Order Comment: Speci men Type: BLOOD SPECIMENOrdering Facility: [facility] Address: [address] [place] [address] Performed By: #### 5 7021-8 ####[facility]ORYCLIA [id number] [address] STATES OF [facility] MCHC (RBC) [Mass/Vol] 29.2 g/dL Low 30.5-36.0 [facility] Comment on above: Order Comment: Speci men Type: BLOOD SPECIMENOrdering Facility: [facility] Address: [address] [place] [address] Performed By: #### 5 7021-8 ####[facility]ORYCLIA [id number] [address] [place] MCV (RBC) [Entitic vol] 95.1 fL Normal 80.0-100.0 [facility] Comment on above: Order Comment: Speci men Type: BLOOD SPECIMENOrdering Facility: [facility] Address: [address] [place] [address] Performed By: #### 5 7021-8 ####[facility]ATORYCLIA [id number] [address] Monocytes (Bld) [#/Vol] 0.63 10*3/uL Normal <0.87 [facility] Comment on above: Order Comment: Speci men Type: BLOOD SPECIMENOrdering Facility: [facility] Address: [address] [place] [address] Performed By: #### 5 7021-8 ####[facility]ORYCLIA [id number] [address] Monocytes/100 WBC (Bld) 5.8 % Normal [facility] Comment on above: Order Comment: Speci men Type: BLOOD SPECIMENOrdering Facility: [facility] Address: [address] [place] [address] Performed By: #### 5 7021-8 ####[facility]ATORYCLIA [id number] [address] [place] Neutrophils (Bld) [#/Vol] 7.25 10*3/uL Normal 1.45-7.50 [facility] Comment on above: Order Comment: Speci men Type: BLOOD SPECIMENOrdering Facility: [facility] Address: [address] [address] Performed By: #### 5 7021-8 ####[facility]ORYCLIA [id number] [address] Neutrophils/100 WBC (Bld) 67.4 % Normal [facility] Comment on above: Order Comment: Speci men Type: BLOOD SPECIMENOrdering Facility: [facility] Address: [address] [place] [address] Performed By: #### 5 7021-8 ####[facility]ORYCLIA [id number] [address] [place] Nucleated RBC (Bld) [#/Vol] 10*3/uL Normal <0.01 [facility] Comment on above: Order Comment: Speci men Type: BLOOD SPECIMENOrdering Facility: [facility] Address: [address] [place] [address] Performed By: #### 5 7021-8 ####[facility]ORYCLIA [id number] [address] [place] Nucleated RBC/100 WBC (Bld) [Ratio] 0.0 /100 WBC Normal [facility] Comment on above: Order Comment: Speci men Type: BLOOD SPECIMENOrdering Facility: [facility] Address: [address] [place] [address] Performed By: #### 5 7021-8 ####[facility]ATORYCLIA [id number] [place] [address] [place] Platelet mean volume (Bld) [Entitic vol] 11.2 fL Normal 9.0-12.7 [facility] Comment on above: Order Comment: Speci men Type: BLOOD SPECIMENOrdering Facility: [facility] Address: [address] [place] [address] Performed By: #### 5 7021-8 ####[facility]ATORYCLIA [id number] [place] [address] [place] Platelets (Bld) [#/Vol] 245 10*3/uL Normal 150-400 [facility] Comment on above: Order Comment: Speci men Type: BLOOD SPECIMENOrdering Facility: [facility] Address: [address] [place] [address] Performed By: #### 5 7021-8 ####[facility]ATORYCLIA [id number] [address] STATES OF [facility] RBC (Bld) [#/Vol] 3.28 10*6/uL Low 4.20-6.00 [facility] Comment on above: Order Comment: Speci men Type: BLOOD SPECIMENOrdering Facility: [facility] Address: [address] [place] [address] Performed By: #### 5 7021-8 ####[facility]ATORYCLIA [id number] [address] OF [facility] WBC (Bld) [#/Vol] 10.78 10*3/uL Normal 3.70-11.00 [facility] Comment on above: Order Comment: Speci men Type: BLOOD SPECIMENOrdering Facility: [facility] Address: [address] [place] [address] Performed By: #### 5 7021-8 ####[facility]ORYCLIA [id number] [address] CSF MANUAL DIFFon 07-26-2021 DIF TTL, CSF 100 cells counted Normal [facility] Comment on above: Order Comment: Speci men Type: CEREBROSPINAL FLUIDOrdering Facility: [facility] Address: [address] [place] [address] Performed By: #### 3 4563-7, [id number], [id number] ####[facility]ATORYCLIA [id number] [address] LYMPH%, CSF 26 % Low 50-90 [facility] Comment on above: Order Comment: Speci men Type: CEREBROSPINAL FLUIDOrdering Facility: [facility] Address: [address] [place] [address] Performed By: #### 3 4563-7, [id number], [id number] ####[facility]ATORYCLIA [id number] [place] [address] [place] MACRO%, CSF 10 % High <1 [facility] Comment on above: Order Comment: Speci men Type: CEREBROSPINAL FLUIDOrdering Facility: [facility] Address: [address] [place] [address] Performed By: #### 3 4563-7, [id number], [id number] ####[facility]ORYCLIA [id number] [place] [address] [place] MONO%, CSF 20 % Normal 10-50 [facility] Comment on above: Order Comment: Speci men Type: CEREBROSPINAL FLUIDOrdering Facility: [facility] Address: [address] [place] [address] Performed By: #### 3 4563-7, [id number], [id number] ####[facility]ORYCLIA [id number] [place] [address] [place] NEUT%, CSF 40 % High 0-3 [facility] Comment on above: Order Comment: Speci men Type: CEREBROSPINAL FLUIDOrdering Facility: [facility] Address: [address] [place] [address] Performed By: #### 3 4563-7, [id number], [id number] ####[facility]ORYCLIA [id number] [address] [place] OTHER CL%, CSF 2 % Normal [facility] Comment on above: Order Comment: Speci men Type: CEREBROSPINAL FLUIDOrdering Facility: [facility] Address: [address] [place] [address] Result Comment: Path review to follow. Performed By: #### 3 4563-7, [id number], [id number] ####[facility]ORYCLIA [id number] [address] [place] REAC LYMPH %, CSF 2 % Normal [facility] Comment on above: Order Comment: Speci men Type: CEREBROSPINAL FLUIDOrdering Facility: [facility] Address: [address] [place] [address] Performed By: #### 3 4563-7, [id number], [id number] ####[facility]ATORYCLIA [id number] [address] CSF PATHOLOGIST INTERP (LAB REFLEX ORDER-NO BILL)on 07-26-2021 CSF STAFF REVIEW Negative for maligna nt cells. Rare bacteria present, cocci in pairs and chains. Correlation with CSF cultures is recommended. Normal [facility] Comment on above: Order Comment: Speci men Type: CEREBROSPINAL FLUIDOrdering Facility: [facility] Address: [address] [place] [address] Performed By: #### 3 4563-7, [id number], [id number] ####[facility]ATORYCLIA [id number] [address] Pathologist name Reviewed by Amador Stevens MD [facility] Comment on above: Order Comment: Speci men Type: CEREBROSPINAL FLUIDOrdering Facility: [facility] Address: [address] [place] [address] Performed By: #### 3 4563-7, [id number], [id number] ####[facility]ATORYCLIA [id number] [address] Cell count panel (CSF)on Clarity (CSF) Slightly Cloudy Abnormal Clear [facility] Comment on above: Order Comment: Speci men Type: CEREBROSPINAL FLUIDOrdering Facility: [facility] Address: [address] [place] [address] Performed By: #### 3 4563-7, [id number], [id number] ####[facility]ATORYCLIA [id number] [address] [place] Clarity (Unsp spec) Clear Normal Clear [facility] Comment on above: Order Comment: Speci men Type: CEREBROSPINAL FLUIDOrdering Facility: [facility] Address: [address] [place] [address] Performed By: #### 3 4563-7, [id number], [id number] ####[facility]ATORYCLIA [id number] [address] OF [facility] Color (CSF) Colorless Normal Colorless [facility] Comment on above: Order Comment: Speci men Type: CEREBROSPINAL FLUIDOrdering Facility: [facility] Address: [address] [address] Performed By: #### 3 4563-7, [id number], [id number] ####[facility]ATORYCLIA [id number] [address] [place] Color (Spun CSF) Not Indicated Normal Colorless [facility] Comment on above: Order Comment: Speci men Type: CEREBROSPINAL FLUIDOrdering Facility: [facility] Address: [address] [place] [address] Performed By: #### 3 4563-7, [id number], [id number] ####[facility]ORATORYCLIA [id number] [address] CSF TUBE [employer] Normal [facility] Comment on above: Order Comment: Speci men Type: CEREBROSPINAL FLUIDOrdering Facility: [facility] Address: [address] [address] Performed By: #### 3 4563-7, [id number], [id number] ####[facility]ORATORYCLIA [id number] [address] [place] RBC Manual cnt (CSF) [#/Vol] 1 cells/uL Normal 0-5 [facility] Comment on above: Order Comment: Speci men Type: CEREBROSPINAL FLUIDOrdering Facility: [facility] Address: [address] [address] Performed By: #### 3 4563-7, [id number], [id number] ####[facility]ORYCLIA [id number] [address] WBC Manual cnt (CSF) [#/Vol] 50 cells/uL High 0-5 [facility] Comment on above: Order Comment: Speci men Type: CEREBROSPINAL FLUIDOrdering Facility: [facility] Address: [address] [place] [address] Performed By: #### 3 4563-7, [id number], [id number] ####[facility]ATORYCLIA [id number] [place] [address] [place] Glucose CSF-mCncon Glucose (CSF) [Mass/Vol] 64 mg/dL Normal 40-70 [facility] Comment on above: Order Comment: Speci men Type: CEREBROSPINAL FLUIDOrdering Facility: [facility] Address: [address] [place] [address] Result Comment: Lumb ar CSF glucose values of healthy patients are approximately 60% of the plasma values and must always be compared with a concurrently measured plasma value for adequate clinical interpretation.References: 1. Glucose HK (GLUC3) [package insert V 12.0 [place]]. [employer], [place], [place]. September 2015. 2. Michelle Moore, Loki H. (2015). Chapter 7: Glucose and Lactate. Marianela Alcocer al.(eds.), Cerebrospinal Fluid in Clinical Neurology. [place]in: [employer]. Performed By: #### 2 880-3, 2342-4 ####[facility]ATORYCLIA [id number] [place] [address] [place] Magnesium SerPl[facility]26 Magnesium [Mass/Vol] 2.3 mg/dL Normal 1.7-2.3 [facility] Comment on above: Order Comment: Speci men Type: BLOOD SPECIMENOrdering Facility: [facility] Address: [address] [place] [address] Performed By: #### 1 9123-9, 2777-1, 3016-3 ####[facility]ATORYCLIA [id number] [place] [address] [place] NURSING PROGon 07-26-2021 NURSING PROG Normal [facility] Phosphate SerPl-mCncon 07-26 Phosphate [Mass/Vol] 2.6 mg/dL Low 2.7-4.8 [facility] Comment on above: Order Comment: Speci men Type: BLOOD SPECIMENOrdering Facility: [facility] Address: [address] [place] [address] Performed By: #### 1 9123-9, 2777-1, 3016-3 ####[facility]ATORYCLIA [id number] [place] [address] [place] Prot CSF-mCncon 07-26-2021 Protein (CSF) [Mass/Vol] 64 mg/dL High 15-45 [facility] Comment on above: Order Comment: Speci men Type: CEREBROSPINAL FLUIDOrdering Facility: [facility] Address: [address] [place] [address] Performed By: #### 2 880-3, 2342-4 ####[facility]ATORYCLIA [id number] [address] THERAPY NTon 07-26-2021 THERAPY NT Normal [facility] TSH SerPl-aCncon 07-26-2021 TSH Qn 1.470 m[IU]/L Normal 0.270-4.200 [facility] Comment on above: Order Comment: Speci men Type: BLOOD SPECIMENOrdering Facility: [facility] Address: [address] [place] [address] Performed By: #### 1 9123-9, 2777-1, 3016-3 ####[facility]ATORYCLIA [id number] [address] [place] VITAMIN B12 BLOODon 07-27-19 Cobalamin (Vitamin B12) [Mass/Vol] 934 pg/mL Normal 232-1,245 [facility] Comment on above: Order Comment: Speci men Type: BLOOD SPECIMENOrdering Facility: [facility] Address: [address] [place] [address] Performed By: #### B 12 ####[facility]ATORYCLIA [id number] [address] [place] aPTT PPPon 07-26-2021 aPTT Coag (PPP) [Time] 53.6 s High 23.0-32.4 [facility] Comment on above: Order Comment: Speci men Type: BLOOD SPECIMENOrdering Facility: [facility] Address: [address] [place] [address] Performed By: #### 1 4979-9 ####[facility]ATORYCLIA [id number] [address] aPTT Coag (PPP) [Time] 44.9 s High 23.0-32.4 [facility] Comment on above: Order Comment: Speci men Type: BLOOD SPECIMENOrdering Facility: [facility] Address: [address] [place] [address] Performed By: #### 1 4979-9 ####[facility]ATORYCLIA [id number] [address] ALLIED HEALTHon 07-25-2021 ALLIED HEALTH HNO ID: [id number] Author: RT Rajwinder(R) Service: Radiology Author Type: Technologist Type: Allied Health Filed: 07/25/2021 1:37 PM Note Text: Called floor for MRI screening form [id number] Normal [facility] Bacteria Bld Culton 07-26-19 Bacteria identified Cx Nom (Bld) CULTURE, BLOOD: No growth 5 days Normal [facility] Comment on above: Performed By: #### 6 00-7 ####[facility]ATORYCLIA [id number] [address] Bacteria identified Cx Nom (Bld) CULTURE, BLOOD: No growth 5 days Normal [facility] Comment on above: Performed By: #### 6 00-7 ####[facility]ATORYCLIA [id number] [address] CASE MANAGEMon 07-25-2021 CASE MANAGEM Normal [facility] CBC W Auto Differential pane l (Bld)on 07-25-2021 Basophils (Bld) [#/Vol] 0.06 10*3/uL Normal <0.11 [facility] Comment on above: Order Comment: Speci men Type: BLOOD SPECIMENOrdering Facility: [facility] Address: [address] [address] Performed By: #### 5 7021-8 ####[facility]ORYCLIA [id number] [address] Basophils/100 WBC (Bld) 0.6 % Normal [facility] Comment on above: Order Comment: Speci men Type: BLOOD SPECIMENOrdering Facility: [facility] Address: [address] [place] [address] Performed By: #### 5 7021-8 ####[facility]ATORYCLIA [id number] [address] Differential cell count method Nom (Bld) Auto Normal [facility] Comment on above: Order Comment: Speci men Type: BLOOD SPECIMENOrdering Facility: [facility] Address: [address] [place] [address] Performed By: #### 5 7021-8 ####[facility]ATORYCLIA [id number] [address] [place] Eosinophils (Bld) [#/Vol] 0.26 10*3/uL Normal <0.46 [facility] Comment on above: Order Comment: Speci men Type: BLOOD SPECIMENOrdering Facility: [facility] Address: [address] [place] [address] Performed By: #### 5 7021-8 ####[facility]ORYCLIA [id number] [address] Eosinophils/100 WBC (Bld) 2.5 % Normal [facility] Comment on above: Order Comment: Speci men Type: BLOOD SPECIMENOrdering Facility: [facility] Address: [address] [place] [address] Performed By: #### 5 7021-8 ####[facility]ORYCLIA [id number] [address] [place] Erythrocyte distribution width (RBC) [Ratio] 16.9 % High 11.5-15.0 [facility] Comment on above: Order Comment: Speci men Type: BLOOD SPECIMENOrdering Facility: [facility] Address: [address] [place] [address] Performed By: #### 5 7021-8 ####[facility]ATORYCLIA [id number] [address] Hematocrit (Bld) [Volume fraction] 29.6 % Low 39.0-51.0 [facility] Comment on above: Order Comment: Speci men Type: BLOOD SPECIMENOrdering Facility: [facility] Address: [address] [place] [address] Performed By: #### 5 7021-8 ####[facility]ORYCLIA [id number] [address] Hemoglobin (Bld) [Mass/Vol] 8.8 g/dL Low 13.0-17.0 [facility] Comment on above: Order Comment: Speci men Type: BLOOD SPECIMENOrdering Facility: [facility] Address: [address] [place] [address] Performed By: #### 5 7021-8 ####[facility]ATORYCLIA [id number] [address] IMMATURE GRAN % 0.6 % Normal [facility] Comment on above: Order Comment: Speci men Type: BLOOD SPECIMENOrdering Facility: [facility] [facility] Address: [address] [place] [address] Performed By: #### 5 7021-8 ####[facility]ORATORYCLIA [id number] [address] IMMATURE GRAN ABS 0.06 k/uL Normal <0.10 [facility] Comment on above: Order Comment: Speci men Type: BLOOD SPECIMENOrdering Facility: [facility] Address: [address] [place] [address] Performed By: #### 5 7021-8 ####[facility]ORATORYCLIA [id number] [place] [address] [place] Lymphocytes (Bld) [#/Vol] 2.15 10*3/uL Normal 1.00-4.00 [facility] Comment on above: Order Comment: Speci men Type: BLOOD SPECIMENOrdering Facility: [facility] Address: [address] [place] [address] Performed By: #### 5 7021-8 ####[facility]ORATORYCLIA [id number] [address] [place] Lymphocytes/100 WBC (Bld) 20.7 % Normal [facility] Comment on above: Order Comment: Speci men Type: BLOOD SPECIMENOrdering Facility: [facility] Address: [address] [place] [address] Performed By: #### 5 7021-8 ####[facility]ATORYCLIA [id number] [address] [place] MCH (RBC) [Entitic mass] 28.2 pg Normal 26.0-34.0 [facility] Comment on above: Order Comment: Speci men Type: BLOOD SPECIMENOrdering Facility: [facility] Address: [address] [place] [address] Performed By: #### 5 7021-8 ####[facility]ATORYCLIA [id number] [address] [place] MCHC (RBC) [Mass/Vol] 29.7 g/dL Low 30.5-36.0 [facility] Comment on above: Order Comment: Speci men Type: BLOOD SPECIMENOrdering Facility: [facility] Address: [address] [place] [place] [address] Performed By: #### 5 7021-8 ####[facility]ATORYCLIA [id number] [address] [place] MCV (RBC) [Entitic vol] 94.9 fL Normal 80.0-100.0 [facility] Comment on above: Order Comment: Speci men Type: BLOOD SPECIMENOrdering Facility: [facility] Address: [address] [place] [address] Performed By: #### 5 7021-8 ####[facility]ORATORYCLIA [id number] [place] [address] [place] Monocytes (Bld) [#/Vol] 0.62 10*3/uL Normal <0.87 [facility] Comment on above: Order Comment: Speci men Type: BLOOD SPECIMENOrdering Facility: [facility] Address: [address] [place] [address] Performed By: #### 5 7021-8 ####[facility] LABORATORYCLIA [id number] [address] [place] Monocytes/100 WBC (Bld) 6.0 % Normal [facility] Comment on above: Order Comment: Speci men Type: BLOOD SPECIMENOrdering Facility: [facility] Address: [address] [place] [address] Performed By: #### 5 7021-8 ####[facility]ATORYCLIA [id number] [address] [place] Neutrophils (Bld) [#/Vol] 7.25 10*3/uL Normal 1.45-7.50 [facility] Comment on above: Order Comment: Speci men Type: BLOOD SPECIMENOrdering Facility: [facility] Address: [address] [place] [address] Performed By: #### 5 7021-8 ####[facility]ORATORYCLIA [id number] [address] [place] Neutrophils/100 WBC (Bld) 69.6 % Normal [facility] Comment on above: Order Comment: Speci men Type: BLOOD SPECIMENOrdering Facility: [facility] Address: [address] [place] [address] Performed By: #### 5 7021-8 ####[facility]ORATORYCLIA [id number] [place] [address] [place] Nucleated RBC (Bld) [#/Vol] 10*3/uL Normal <0.01 [facility] Comment on above: Order Comment: Speci men Type: BLOOD SPECIMENOrdering Facility: [facility] Address: [address] [place] [address] Performed By: #### 5 7021-8 ####[facility]ATORYCLIA [id number] [address] Nucleated RBC/100 WBC (Bld) [Ratio] 0.0 /100 WBC Normal [facility] Comment on above: Order Comment: Speci men Type: BLOOD SPECIMENOrdering Facility: [facility] Address: [address] [place] [address] Performed By: #### 5 7021-8 ####[facility]ATORYCLIA [id number] [address] [place] Platelet mean volume (Bld) [Entitic vol] 11.3 fL Normal 9.0-12.7 [facility] Comment on above: Order Comment: Speci men Type: BLOOD SPECIMENOrdering Facility: [facility] Address: [address] [place] [address] Performed By: #### 5 7021-8 ####[facility]ATORYCLIA [id number] [address] [place] Platelets (Bld) [#/Vol] 243 10*3/uL Normal 150-400 [facility] Comment on above: Order Comment: Speci men Type: BLOOD SPECIMENOrdering Facility: [facility] Address: [address] [place], [place] [address] Performed By: #### 5 7021-8 ####[facility]ATORYCLIA [id number] [address] [place] RBC (Bld) [#/Vol] 3.12 10*6/uL Low 4.20-6.00 [facility] Comment on above: Order Comment: Speci men Type: BLOOD SPECIMENOrdering Facility: [facility] Address: [address] [place] [address] Performed By: #### 5 7021-8 ####[facility]ATORYCLIA [id number] [address] [place] WBC (Bld) [#/Vol] 10.40 10*3/uL Normal 3.70-11.00 [facility] Comment on above: Order Comment: Speci men Type: BLOOD SPECIMENOrdering Facility: [facility] Address: [address] [place] [address] Performed By: #### 5 7021-8 ####[facility]ORATORYCLIA [id number] [place] [address] [place] CONSULT PROGon 07-25-2021 CONSULT PROG Normal [facility] MYCOPLASMA PNEUM IGMon 07-25 M. PNEUMO IGM, QUAL Negative Normal Negative [facility] Comment on above: Order Comment: Speci men Type: BLOOD SPECIMENOrdering Facility: [facility] Address: [address] [place] [address] Result Comment: Myco plasma pneumoniae IgM antibody test is used as an aid in diagnosis of recent infection with M. pneumoniae. It may occasionally remain elevated for extended periods after an acute infection. Cannot exclude recent infection if the specimen collected 7-10 days after onset of signs and symptoms. Clinical correlation is required. Performed By: #### M YCOPM ####[facility] LABCLIA [id number] [facility] [place] [address] [place] NURSING PROGon 07-25-2021 NURSING PROG Normal [facility] THERAPY NTon 07-25-2021 THERAPY NT Normal [facility] THERAPY NT Normal [facility] aPTT PPPon 07-25-2021 aPTT Coag (PPP) [Time] 62.6 s High 23.0-32.4 [facility] Comment on above: Order Comment: Speci men Type: BLOOD SPECIMENOrdering Facility: [facility] Address: [address] [place] [address] Performed By: #### 1 4979-9 ####[facility]ORATORYCLIA [id number] [place] [address] [place] Bacteria Ur Culton Bacteria identified Cx Nom (U) CULTURE, URINE: No growth (<100 CFU/ml) Normal [facility] Comment on above: Performed By: #### 6 30-4 ####[facility]ATORYCLIA [id number] [address] STATES OF [facility] Basic metabolic 2000 panelon 07-24-2021 Anion gap [Moles/Vol] 13 mmol/L Normal 9-18 [facility] Comment on above: Order Comment: Speci men Type: BLOOD SPECIMENOrdering Facility: [facility] Address: [address] [place] [address] Performed By: #### 1 9123-9, PROCAL, 2777-1, 49822-7 ####[facility]ATORYCLIA [id number] [address] [place] Calcium [Mass/Vol] 9.5 mg/dL Normal 8.5-10.2 [facility] Comment on above: Order Comment: Speci men Type: BLOOD SPECIMENOrdering Facility: [facility] Address: [address] [place] [address] Performed By: #### 1 9123-9, PROCAL, 2777-1, 08570-2 ####[facility]ATORYCLIA [id number] [address] [place] Chloride [Moles/Vol] 102 mmol/L Normal 97-105 [facility] Comment on above: Order Comment: Speci men Type: BLOOD SPECIMENOrdering Facility: [facility] Address: [address] [place] [address] Performed By: #### 1 9123-9, PROCAL, 2777-1, 17812-4 ####[facility]ATORYCLIA [id number] [place] [address] [place] CO2 [Moles/Vol] 28 mmol/L Normal 22-30 [facility] Comment on above: Order Comment: Speci men Type: BLOOD SPECIMENOrdering Facility: [facility] Address: [address] [place] [address] Performed By: #### 1 9123-9, PROCAL, 2777-1, 71875-6 ####[facility]ENTERCLIA [id number] [place], [place] [address] [place] [address] [place] [facility] Creatinine [Mass/Vol] 0.86 mg/dL Normal 0.73-1.22 [facility] Comment on above: Order Comment: Shira feldman Type: BLOOD SPECIMENOrdering Facility: [facility] Address: [address] [place] [place] [address] Performed By: #### 1 9123-9, [facility], 2776-, 31942-2 ####[facility]ITALIA [id number] [address] STATES OF [facility] ESTIMATED GLOMERULAR FILTRATION RATE 94 mL/min/1.73m??? Normal >=60 [facility] Comment on above: Order Comment: Shira feldman Type: BLOOD SPECIMENOrdering Facility: [facility] Address: [address] [place] [address] Result Comment: Luzmaria mated Glomerular Filtration Rate [...] actual GFR. Performed By: #### 1 9123-9, [facility], 277-1, 59035-4 ####[facility]PITALIA [id number] [address] STATES OF [facility] Glucose [Mass/Vol] 148 mg/dL High 74-99 [facility] Comment on above: Order Comment: Shira francia Type: BLOOD SPECIMENOrdering Facility: [facility] Address: [address] [address] Result Comment: The [employer] (ADA) provides guidance for cutoff [...] Standards of Medical Care in Diabetes 2016, [employer]. Diabetes Care. 2016.39(Suppl 1). Performed By: #### 1 9123-9, PROCAL, 7-1, 23197-8 ####[facility]ORATORYCLIA [id number] [place] [address] [place] Potassium [Moles/Vol] 4.0 mmol/L Normal 3.7-5.1 [facility] Comment on above: Order Comment: Shira feldman Type: BLOOD SPECIMENOrdering Facility: [facility] Address: [address] [place] [address] Performed By: #### 1 9123-9, [facility], 2776-, 12587-5 ####[facility]ENTERCLIA [id number] [address] STATES OF [facility] Sodium [Moles/Vol] 143 mmol/L Normal 136-144 [facility] Comment on above: Order Comment: Shira feldman Type: BLOOD SPECIMENOrdering Facility: [facility] Address: [address] [place] [address] Performed By: #### 1 9123-9, [facility], 2776-, 63961-6 ####[facility]ORATORYCLIA [id number] [place] [address] [place] Urea nitrogen [Mass/Vol] 38 mg/dL High 9-24 [facility] Comment on above: Order Comment: Shira feldman Type: BLOOD SPECIMENOrdering Facility: [facility] Address: [address] [place] [address] Performed By: #### 1 9123-9, PROCMN, 7-1, 77928-3 ####[facility]ATORYCLIA [id number] [place] [address] [place] CBC W Auto Differential pane l (Bld)on 07-24-2021 Basophils (Bld) [#/Vol] 0.06 10*3/uL Normal <0.11 [facility] Comment on above: Order Comment: Speci men Type: BLOOD SPECIMENOrdering Facility: [facility] Address: [address] [place] [address] Performed By: #### 5 7021-8 ####[facility]ATORYCLIA [id number] [address] [place] Basophils/100 WBC (Bld) 0.6 % Normal [facility] Comment on above: Order Comment: Speci men Type: BLOOD SPECIMENOrdering Facility: [facility] Address: [address] [place] [address] Performed By: #### 5 7021-8 ####[facility]ATORYCLIA [id number] [address] [place] Differential cell count method Nom (Bld) Auto Normal [facility] Comment on above: Order Comment: Speci men Type: BLOOD SPECIMENOrdering Facility: [facility] Address: [address] [place] [address] Performed By: #### 5 7021-8 ####[facility]ATORYCLIA [id number] [address] [place] Eosinophils (Bld) [#/Vol] 0.03 10*3/uL Normal <0.46 [facility] Comment on above: Order Comment: Speci men Type: BLOOD SPECIMENOrdering Facility: [facility] Address: [address] [place] [address] Performed By: #### 5 7021-8 ####[facility]ORATORYCLIA [id number] [address] [place] Eosinophils/100 WBC (Bld) 0.3 % Normal [facility] Comment on above: Order Comment: Speci men Type: BLOOD SPECIMENOrdering Facility: [facility] Address: [address] [place] [address] Performed By: #### 5 7021-8 ####[facility]ATORYCLIA [id number] [address] Erythrocyte distribution width (RBC) [Ratio] 17.0 % High 11.5-15.0 [facility] Comment on above: Order Comment: Speci men Type: BLOOD SPECIMENOrdering Facility: [facility] Address: [address] [place] [address] Performed By: #### 5 7021-8 ####[facility]ORATORYCLIA [id number] [address] Hematocrit (Bld) [Volume fraction] 30.5 % Low 39.0-51.0 [facility] Comment on above: Order Comment: Speci men Type: BLOOD SPECIMENOrdering Facility: [facility] Address: [address] [place] [address] Performed By: #### 5 7021-8 ####[facility]ENTERCLIA [id number] [address] STATES OF [facility] Hemoglobin (Bld) [Mass/Vol] 9.0 g/dL Low 13.0-17.0 [facility] Comment on above: Order Comment: Speci men Type: BLOOD SPECIMENOrdering Facility: [facility] Address: [address] [place] [address] Performed By: #### 5 7021-8 ####[facility]ORATORYCLIA [id number] [address] IMMATURE GRAN % 0.5 % Normal [facility] Comment on above: Order Comment: Speci men Type: BLOOD SPECIMENOrdering Facility: [facility] Address: [address] [place] [address] Performed By: #### 5 7021-8 ####[facility]ATORYCLIA [id number] [address] IMMATURE GRAN ABS 0.05 k/uL Normal <0.10 [facility] Comment on above: Order Comment: Speci men Type: BLOOD SPECIMENOrdering Facility: [facility] Address: [address] [place] [address] Performed By: #### 5 7021-8 ####[facility]ORATORYCLIA [id number] [address] STATES OF [facility] Lymphocytes (Bld) [#/Vol] 1.68 10*3/uL Normal 1.00-4.00 [facility] Comment on above: Order Comment: Speci men Type: BLOOD SPECIMENOrdering Facility: [facility] Address: [address] [place] [address] Performed By: #### 5 7021-8 ####[facility]ORATORYCLIA [id number] [address] Lymphocytes/100 WBC (Bld) 16.2 % Normal [facility] Comment on above: Order Comment: Speci men Type: BLOOD SPECIMENOrdering Facility: [facility] Address: [address] [place] [address] Performed By: #### 5 7021-8 ####[facility]ORATORYCLIA [id number] [address] STATES OF [facility] MCH (RBC) [Entitic mass] 27.4 pg Normal 26.0-34.0 [facility] Comment on above: Order Comment: Speci men Type: BLOOD SPECIMENOrdering Facility: [facility] Address: [address] [place] [address] Performed By: #### 5 7021-8 ####[facility]ATORYCLIA [id number] [address] [place] MCHC (RBC) [Mass/Vol] 29.5 g/dL Low 30.5-36.0 [facility] Comment on above: Order Comment: Speci men Type: BLOOD SPECIMENOrdering Facility: [facility] Address: [address] [place] [address] Performed By: #### 5 7021-8 ####[facility]ORATORYCLIA [id number] [address] [place] MCV (RBC) [Entitic vol] 93.0 fL Normal 80.0-100.0 [facility] Comment on above: Order Comment: Speci men Type: BLOOD SPECIMENOrdering Facility: [facility] Address: [address] [place] [address] Performed By: #### 5 7021-8 ####[facility]ATORYCLIA [id number] [place] [address] [place] Monocytes (Bld) [#/Vol] 0.63 10*3/uL Normal <0.87 [facility] Comment on above: Order Comment: Speci men Type: BLOOD SPECIMENOrdering Facility: [facility] Address: [address] [place] [address] Performed By: #### 5 7021-8 ####[facility]ATORYCLIA [id number] [address] [place] Monocytes/100 WBC (Bld) 6.1 % Normal [facility] Comment on above: Order Comment: Speci men Type: BLOOD SPECIMENOrdering Facility: [facility] Address: [address] [place] [address] Performed By: #### 5 7021-8 ####[facility]ORATORYCLIA [id number] [address] [place] Neutrophils (Bld) [#/Vol] 7.91 10*3/uL High 1.45-7.50 [facility] Comment on above: Order Comment: Speci men Type: BLOOD SPECIMENOrdering Facility: [facility] Address: [address] [place] [address] Performed By: #### 5 7021-8 ####[facility]ORATORYCLIA [id number] [address] [place] Neutrophils/100 WBC (Bld) 76.3 % Normal [facility] Comment on above: Order Comment: Speci men Type: BLOOD SPECIMENOrdering Facility: [facility] Address: [address] [place] [address] Performed By: #### 5 7021-8 ####[facility]ORATORYCLIA [id number] [address] Nucleated RBC (Bld) [#/Vol] 10*3/uL Normal <0.01 [facility] Comment on above: Order Comment: Speci men Type: BLOOD SPECIMENOrdering Facility: [facility] Address: [address] [place] [address] Performed By: #### 5 7021-8 ####[facility]ORATORYCLIA [id number] [address] [place] Nucleated RBC/100 WBC (Bld) [Ratio] 0.0 /100 WBC Normal [facility] Comment on above: Order Comment: Speci men Type: BLOOD SPECIMENOrdering Facility: [facility] Address: [address] [place] [address] Performed By: #### 5 7021-8 ####[facility]ORATORYCLIA [id number] [address] [place] Platelet mean volume (Bld) [Entitic vol] 11.1 fL Normal 9.0-12.7 [facility] Comment on above: Order Comment: Speci men Type: BLOOD SPECIMENOrdering Facility: [facility] Address: [address] [place] [address] Performed By: #### 5 7021-8 ####[facility]ATORYCLIA [id number] [address] [place] Platelets (Bld) [#/Vol] 285 10*3/uL Normal 150-400 [facility] Comment on above: Order Comment: Speci men Type: BLOOD SPECIMENOrdering Facility: [facility] Address: [address] [place] [address] Performed By: #### 5 7021-8 ####[facility]ORATORYCLIA [id number] [address] [place] RBC (Bld) [#/Vol] 3.28 10*6/uL Low 4.20-6.00 [facility] Comment on above: Order Comment: Speci men Type: BLOOD SPECIMENOrdering Facility: [facility] Address: [address] [place] [address] Performed By: #### 5 7021-8 ####[facility]ORATORYCLIA [id number] [place] [address] [place] WBC (Bld) [#/Vol] 10.36 10*3/uL Normal 3.70-11.00 [facility] Comment on above: Order Comment: Speci men Type: BLOOD SPECIMENOrdering Facility: [facility] Address: [address] [place] [address] Performed By: #### 5 7021-8 ####[facility]ORATORYCLIA [id number] [address] [place] Legionella Ag Ur Qlon 2021 Legionella sp Ag Ql (U) Negative Normal Negative [facility] Comment on above: Order Comment: Speci men Type: URINE SPECIMENOrdering Facility: [facility] Address: [address] [place] [address] Performed By: #### 3 2781-7 ####[facility]ORATORYCLIA [id number] [place] [address] [place] Magnesium SerPl-mCncon 07-24 Magnesium [Mass/Vol] 2.3 mg/dL Normal 1.7-2.3 [facility] Comment on above: Order Comment: Speci men Type: BLOOD SPECIMENOrdering Facility: [facility] Address: [address] [place] [address] Performed By: #### 1 9123-9, PROCAL, 2777-1, 56887-1 ####[facility]ORATORYCLIA [id number] [place] [address] [place] NURSING PROGon 07-24-2021 NURSING PROG Normal [facility] PROCALCITONIN (LAB)on 2021 Procalcitonin [Mass/Vol] 0.15 ng/mL High <0.09 [facility] Comment on above: Order Comment: Speci men Type: BLOOD SPECIMENOrdering Facility: [facility] Address: [address] [address] Result Comment: For a guided interpretation of test results, please visit the Change in Procalcitonin Calculator, [email or web address]. Performed By: #### 1 9123-9, PROCAL, 7-1, 50252-2 ####[facility]ATORYCLIA [id number] [address] Phosphate SerPl-mCncon 07-24 Phosphate [Mass/Vol] 3.9 mg/dL Normal 2.7-4.8 [facility] Comment on above: Order Comment: Speci men Type: BLOOD SPECIMENOrdering Facility: [facility] Address: [address] [place] [place] [address] Performed By: #### 1 9123-9, ELVAAL, 7-1, 40926-7 ####[facility]ORATORYCLIA [id number] [address] [place] STREPTOCOCCUS PNEUMONIAE AGo n 07-24-2021 STREPTOCOCCUS PNEUMONIAE AG Normal [facility] Comment on above: Performed By: #### S PNAG ####[facility]ORATORYCLIA [id number] [address] [place] aPTT PPPon 07-24-2021 aPTT Coag (PPP) [Time] 60.8 s High 23.0-32.4 [facility] Comment on above: Order Comment: Speci men Type: BLOOD SPECIMENOrdering Facility: [facility] Address: [address] [address] Performed By: #### 1 4979-9 ####[facility]ATORYCLIA [id number] [address] aPTT Coag (PPP) [Time] 38.2 s High 23.0-32.4 [facility] Comment on above: Order Comment: Speci men Type: BLOOD SPECIMENOrdering Facility: [facility] Address: [address] [address] Performed By: #### 1 4979-9 ####[facility] LABORATORYCLIA [id number] [address] [place] aPTT Coag (PPP) [Time] 35.9 s High 23.0-32.4 [facility] Comment on above: Order Comment: Speci men Type: BLOOD SPECIMENOrdering Facility: [facility] Address: [address] [place] [address] Performed By: #### 1 4979-9 ####[facility] LABORATORYCLIA [id number] [address] aPTT Coag (PPP) [Time] 28.8 s Normal 23.0-32.4 [facility] Comment on above: Order Comment: Speci men Type: BLOOD SPECIMENOrdering Facility: [facility] Address: [address] [place] [address] Performed By: #### 1 4979-9 ####[facility]ATORYCLIA [id number] [address] [place] ALLIED HEALTHon 07-23-2021 ALLIED HEALTH Normal [facility] ALLIED HEALTH Normal [facility] ALLIED HEALTH Normal [facility] ARTERIAL BLOOD GASESon 07-23 Base excess Calc (Bld) [Moles/Vol] 4 mmol/L High 0-2 [facility] Comment on above: Order Comment: Speci men Type: ARTERIAL BLOOD SPECIMENOrdering Facility: [facility] Address: [address] [place] [address] Performed By: #### A LLBG ####[facility]ATORYCLIA [id number] [address] Body temperature 100.58 [degF] Normal [facility] Comment on above: Order Comment: Speci men Type: ARTERIAL BLOOD SPECIMENOrdering Facility: [facility] Address: [address] [place] [address] Performed By: #### A LLBG ####[facility]ATORYCLIA [id number] [address] CALCIUM IONIZED, PH CORRECTED 1.26 mmol/L Normal 1.08-1.30 [facility] Comment on above: Order Comment: Speci men Type: ARTERIAL BLOOD SPECIMENOrdering Facility: [facility] Address: [address] [place] [address] Performed By: #### A LLBG ####[facility]ATORYCLIA [id number] [place] [address] [place] Calcium.ionized (BldV) [Mass/Vol] 1.25 mmol/L Normal 1.08-1.30 [facility] Comment on above: Order Comment: Speci men Type: ARTERIAL BLOOD SPECIMENOrdering Facility: [facility] Address: [address] [place] [address] Performed By: #### A LLBG ####[facility]ORATORYCLIA [id number] [address] OF [facility] Carboxyhemoglobin (BldA) [Mass fraction] 1.2 % Normal 0.0-2.0 [facility] Comment on above: Order Comment: Speci men Type: ARTERIAL BLOOD SPECIMENOrdering Facility: [facility] Address: [address] [place] [address] Result Comment: Carb oxyhemoglobin Reference Range for Smokers: 2.0-8.0% Performed By: #### A LLBG ####[facility]ATORYCLIA [id number] [address] [place] CO2 (Bld) [Partial pressure] 46 mm Hg Normal 36-46 [facility] Comment on above: Order Comment: Speci men Type: ARTERIAL BLOOD SPECIMENOrdering Facility: [facility] Address: [address] [place] [place] [address] Performed By: #### A LLBG ####[facility]ATORYCLIA [id number] [address] [place] CO2 [Moles/Vol] 27 mmol/L Normal 22-28 [facility] Comment on above: Order Comment: Speci men Type: ARTERIAL BLOOD SPECIMENOrdering Facility: [facility] Address: [address] [place] [address] Performed By: #### A LLBG ####[facility]ATORYCLIA [id number] [address] CO2 adjusted to patient's actual temperature (Bld) [Partial pressure] 48 mmHg High 36-46 [facility] Comment on above: Order Comment: Speci men Type: ARTERIAL BLOOD SPECIMENOrdering Facility: [facility] Address: [address] [place] [address] Performed By: #### A LLBG ####[facility]ORATORYCLIA [id number] [address] [place] Glucose [Mass/Vol] 134 mg/dL High 60-105 [facility] Comment on above: Order Comment: Speci men Type: ARTERIAL BLOOD SPECIMENOrdering Facility: [facility] Address: [address] [place] [address] Performed By: #### A LLBG ####[facility]ATORYCLIA [id number] [address] HCO3 (Bld) [Moles/Vol] 29 mmol/L High 22-26 [facility] Comment on above: Order Comment: Speci men Type: ARTERIAL BLOOD SPECIMENOrdering Facility: [facility] Address: [address] [place] [address] Performed By: #### A LLBG ####[facility]ATORYCLIA [id number] [address] Hematocrit (Bld) [Volume fraction] 31.4 % Low 39.0-51.0 [facility] Comment on above: Order Comment: Speci men Type: ARTERIAL BLOOD SPECIMENOrdering Facility: [facility] Address: [address] [place] [address] Performed By: #### A LLBG ####[facility]ATORYCLIA [id number] [address] [place] Hemoglobin (Bld) [Mass/Vol] 10.2 g/dL Low 13.0-17.0 [facility] Comment on above: Order Comment: Speci men Type: ARTERIAL BLOOD SPECIMENOrdering Facility: [facility] Address: [address] [address] Performed By: #### A LLBG ####[facility]ATORYCLIA [id number] [address] Methemoglobin (Bld) [Mass fraction] % Normal 0.0-1.5 [facility] Comment on above: Order Comment: Speci men Type: ARTERIAL BLOOD SPECIMENOrdering Facility: [facility] Address: [address] [address] Performed By: #### A LLBG ####[facility]ORYCLIA [id number] [address] O2 THERAPY Ventilator Normal [facility] Comment on above: Order Comment: Speci men Type: ARTERIAL BLOOD SPECIMENOrdering Facility: [facility] Address: [address] [place] [address] Performed By: #### A LLBG ####[facility]ORYCLIA [id number] [address] [place] Oxygen (Bld) [Partial pressure] 113 mm Hg High 85-95 [facility] Comment on above: Order Comment: Speci men Type: ARTERIAL BLOOD SPECIMENOrdering Facility: [facility] Address: [address] [place] [address] Performed By: #### A LLBG ####[facility]ATORYCLIA [id number] [address] Oxygen adjusted to patient's actual temperature (Bld) [Partial pressure] 119 mmHg High 85-95 [facility] Comment on above: Order Comment: Speci men Type: ARTERIAL BLOOD SPECIMENOrdering Facility: [facility] Address: [facility] [place] [address] Performed By: #### A LLBG ####[facility]ORYCLIA [id number] [address] [place] OXYGEN SATURATION, ARTERIAL 98 % Normal 95-98 [facility] Comment on above: Order Comment: Speci men Type: ARTERIAL BLOOD SPECIMENOrdering Facility: [facility] Address: [address] [place] [address] Performed By: #### A LLBG ####[facility]ATORYCLIA [id number] [address] Oxyhemoglobin (BldA) [Mass fraction] 96 % Normal 95-98 [facility] Comment on above: Order Comment: Speci men Type: ARTERIAL BLOOD SPECIMENOrdering Facility: [facility] Address: [address] [place] [address] Performed By: #### A LLBG ####[facility]ATORYCLIA [id number] [address] [place] pH (Bld) 7.41 [pH] Normal 7.35-7.45 [facility] Comment on above: Order Comment: Speci men Type: ARTERIAL BLOOD SPECIMENOrdering Facility: [facility] Address: [address] [place] [address] Performed By: #### A LLBG ####[facility]ATORYCLIA [id number] [address] pH adjusted to patient's actual temperature (Bld) 7.40 Normal 7.35-7.45 [facility] Comment on above: Order Comment: Speci men Type: ARTERIAL BLOOD SPECIMENOrdering Facility: [facility] Address: [address] [place] [address] Performed By: #### A LLBG ####[facility]ATORYCLIA [id number] [address] [place] Potassium [Moles/Vol] 4.3 mmol/L Normal 3.5-5.0 [facility] Comment on above: Order Comment: Speci men Type: ARTERIAL BLOOD SPECIMENOrdering Facility: [facility] Address: [address] [place] [address] Performed By: #### A LLBG ####[facility]ATORYCLIA [id number] [address] [place] Sodium [Moles/Vol] 144 mmol/L Normal 136-144 [facility] Comment on above: Order Comment: Speci men Type: ARTERIAL BLOOD SPECIMENOrdering Facility: [facility] Address: [address] [place] [address] Performed By: #### A LLBG ####[facility]ORATORYCLIA [id number] [address] OF [facility] Bacteria CSF Culton 07-24-19 Bacteria identified Cx Nom (CSF) Abnormal [facility] Comment on above: Performed By: #### 6 06-4 ####[facility]ATORYCLIA [id number] [address] [place] Basic metabolic 2000 panelon 07-23-2021 Anion gap [Moles/Vol] 12 mmol/L Normal 9-18 [facility] Comment on above: Order Comment: Speci men Type: BLOOD SPECIMENOrdering Facility: [facility] Address: [address] [place] [address] Performed By: #### 2 4321-2 ####[facility]ATORYCLIA [id number] [place] [address] [place] Calcium [Mass/Vol] 9.7 mg/dL Normal 8.5-10.2 [facility] Comment on above: Order Comment: Speci men Type: BLOOD SPECIMENOrdering Facility: [facility] Address: [address] [place] [address] Performed By: #### 2 4321-2 ####[facility]ATORYCLIA [id number] [address] [place] Chloride [Moles/Vol] 105 mmol/L Normal 97-105 [facility] Comment on above: Order Comment: Speci men Type: BLOOD SPECIMENOrdering Facility: [facility] Address: [address] [place] [address] Performed By: #### 2 4321-2 ####[facility]ATORYCLIA [id number] [place] [address] [place] CO2 [Moles/Vol] 28 mmol/L Normal 22-30 [facility] Comment on above: Order Comment: Speci men Type: BLOOD SPECIMENOrdering Facility: [facility] Address: [address] [place] [address] Performed By: #### 2 4321-2 ####[facility]ENTERCLIA [id number] [address] [place] Creatinine [Mass/Vol] 0.78 mg/dL Normal 0.73-1.22 [facility] Comment on above: Order Comment: Speci francia Type: BLOOD SPECIMENOrdering Facility: [facility] Address: [address] [place] [address] Performed By: #### 2 4321-2 ####[facility]ITALIA [id number] [address] ESTIMATED GLOMERULAR FILTRATION RATE 97 mL/min/1.73m??? Normal >=60 [facility] Comment on above: Order Comment: Speccara feldman Type: BLOOD SPECIMENOrdering Facility: [facility] Address: [address] [place] [address] Result Comment: Luzmaria mated Glomerular Filtration Rate [...] actual GFR. Performed By: #### 2 4321-2 ####[facility]ATORYCLIA [id number] [address] [place] Glucose [Mass/Vol] 127 mg/dL High 74-99 [facility] Comment on above: Order Comment: Shira feldman Type: BLOOD SPECIMENOrdering Facility: [facility] Address: [address] [place] [address] Result Comment: The [employer] (ADA) provides guidance for cutoff [...] Standards of Medical Care in Diabetes 2016, [employer]. Diabetes Care. 2016.39(Suppl 1). Performed By: #### 2 4321-2 ####[facility]ATORYCLIA [id number] [address] [place] Potassium [Moles/Vol] 4.3 mmol/L Normal 3.7-5.1 [facility] Comment on above: Order Comment: Shira feldman Type: BLOOD SPECIMENOrdering Facility: [facility] Address: [address] [place] [address] Performed By: #### 2 4321-2 ####[facility]ITALIA [id number] [address] [place] Sodium [Moles/Vol] 145 mmol/L High 136-144 [facility] Comment on above: Order Comment: Shira feldman Type: BLOOD SPECIMENOrdering Facility: [facility] Address: [address] [place] [address] Performed By: #### 2 4321-2 ####[facility]ITALIA [id number] [address] [place] Urea nitrogen [Mass/Vol] 37 mg/dL High 9-24 [facility] Comment on above: Order Comment: Shira feldman Type: BLOOD SPECIMENOrdering Facility: [facility] Address: [address] [place] [address] Performed By: #### 2 4321-2 ####[facility]ENTERCLIA [id number] [place] [address] [place] C diff Tox gens Stl Ql MEGAN+p robeon 07-23-2021 C. difficile toxin genes MEGAN+probe Ql (Stl) Negative Normal Negative for C. difficile toxin by PCR [facility] Comment on above: Order Comment: Speci men Type: STOOL SPECIMENOrdering Facility: [facility] Address: [address] [place] [address] Performed By: #### 5 4067-4 ####[facility]ATORYCLIA [id number] [address] [place] CBC W Auto Differential pane l (Bld)on 07-23-2021 Basophils (Bld) [#/Vol] 0.07 10*3/uL Normal <0.11 [facility] Comment on above: Order Comment: Speci men Type: BLOOD SPECIMENOrdering Facility: [facility] Address: [address] [place] [address] Performed By: #### 5 7021-8 ####[facility]ATORYCLIA [id number] [address] [place] Basophils/100 WBC (Bld) 0.5 % Normal [facility] Comment on above: Order Comment: Speci men Type: BLOOD SPECIMENOrdering Facility: [facility] Address: [address] [place] [address] Performed By: #### 5 7021-8 ####[facility]ATORYCLIA [id number] [address] Differential cell count method Nom (Bld) Auto Normal [facility] Comment on above: Order Comment: Speci men Type: BLOOD SPECIMENOrdering Facility: [facility] Address: [address] [place] [address] Performed By: #### 5 7021-8 ####[facility]ATORYCLIA [id number] [place] [address] [place] Eosinophils (Bld) [#/Vol] 10*3/uL Normal <0.46 [facility] Comment on above: Order Comment: Speci men Type: BLOOD SPECIMENOrdering Facility: [facility] Address: [address] [place] [address] Performed By: #### 5 7021-8 ####[facility]ATORYCLIA [id number] [address] STATES [facility] Eosinophils/100 WBC (Bld) 0.2 % Normal [facility] Comment on above: Order Comment: Speci men Type: BLOOD SPECIMENOrdering Facility: [facility] Address: [address] [place] [address] Performed By: #### 5 7021-8 ####[facility]ATORYCLIA [id number] [address] STATES [facility] Erythrocyte distribution width (RBC) [Ratio] 16.7 % High 11.5-15.0 [facility] Comment on above: Order Comment: Speci men Type: BLOOD SPECIMENOrdering Facility: [facility] Address: [address] [place] [address] Performed By: #### 5 7021-8 ####[facility]ATORYCLIA [id number] [address] Hematocrit (Bld) [Volume fraction] 32.8 % Low 39.0-51.0 [facility] Comment on above: Order Comment: Speci men Type: BLOOD SPECIMENOrdering Facility: [facility] Address: [address] [place] [address] Performed By: #### 5 7021-8 ####[facility]ATORYCLIA [id number] [address] [place] Hemoglobin (Bld) [Mass/Vol] 9.7 g/dL Low 13.0-17.0 [facility] Comment on above: Order Comment: Speci men Type: BLOOD SPECIMENOrdering Facility: [facility] Address: [address] [place] [address] Performed By: #### 5 7021-8 ####[facility]ATORYCLIA [id number] [address] IMMATURE GRAN % 0.7 % Normal [facility] Comment on above: Order Comment: Speci men Type: BLOOD SPECIMENOrdering Facility: [facility] Address: [address] [place] [address] Performed By: #### 5 7021-8 ####[facility]ATORYCLIA [id number] [address] STATES [facility] IMMATURE GRAN ABS 0.09 k/uL Normal <0.10 [facility] Comment on above: Order Comment: Speci men Type: BLOOD SPECIMENOrdering Facility: [facility] Address: [address] [place] [address] Performed By: #### 5 7021-8 ####[facility]ATORYCLIA [id number] [address] Lymphocytes (Bld) [#/Vol] 1.94 10*3/uL Normal 1.00-4.00 [facility] Comment on above: Order Comment: Speci men Type: BLOOD SPECIMENOrdering Facility: [facility] Address: [address] [place] [address] Performed By: #### 5 7021-8 ####[facility]ATORYCLIA [id number] [address] Lymphocytes/100 WBC (Bld) 14.6 % Normal [facility] Comment on above: Order Comment: Speci men Type: BLOOD SPECIMENOrdering Facility: [facility] Address: [address] [place] [address] Performed By: #### 5 7021-8 ####[facility]ATORYCLIA [id number] [address] MCH (RBC) [Entitic mass] 27.2 pg Normal 26.0-34.0 [facility] Comment on above: Order Comment: Speci men Type: BLOOD SPECIMENOrdering Facility: [facility] Address: [address] [place] [address] Performed By: #### 5 7021-8 ####[facility]ATORYCLIA [id number] [address] [place] MCHC (RBC) [Mass/Vol] 29.6 g/dL Low 30.5-36.0 [facility] Comment on above: Order Comment: Speci men Type: BLOOD SPECIMENOrdering Facility: [facility] Address: [address] [place] [address] Performed By: #### 5 7021-8 ####[facility]ORYCLIA [id number] [address] [place] MCV (RBC) [Entitic vol] 92.1 fL Normal 80.0-100.0 [facility] Comment on above: Order Comment: Speci men Type: BLOOD SPECIMENOrdering Facility: [facility] Address: [address] [place] [address] Performed By: #### 5 7021-8 ####[facility]ATORYCLIA [id number] [place] [address] [place] Monocytes (Bld) [#/Vol] 0.74 10*3/uL Normal <0.87 [facility] Comment on above: Order Comment: Speci men Type: BLOOD SPECIMENOrdering Facility: [facility] Address: [address] [place] [address] Performed By: #### 5 7021-8 ####[facility]ATORYCLIA [id number] [address] [place] Monocytes/100 WBC (Bld) 5.6 % Normal [facility] Comment on above: Order Comment: Speci men Type: BLOOD SPECIMENOrdering Facility: [facility] Address: [address] [place] [address] Performed By: #### 5 7021-8 ####[facility]ATORYCLIA [id number] [address] [place] Neutrophils (Bld) [#/Vol] 10.43 10*3/uL High 1.45-7.50 [facility] Comment on above: Order Comment: Speci men Type: BLOOD SPECIMENOrdering Facility: [facility] Address: [address] [place] [address] Performed By: #### 5 7021-8 ####[facility]ORYCLIA [id number] [address] Neutrophils/100 WBC (Bld) 78.4 % Normal [facility] Comment on above: Order Comment: Speci men Type: BLOOD SPECIMENOrdering Facility: [facility] Address: [address] [address] Performed By: #### 5 7021-8 ####[facility]ATORYCLIA [id number] [address] [place] Nucleated RBC (Bld) [#/Vol] 10*3/uL Normal <0.01 [facility] Comment on above: Order Comment: Speci men Type: BLOOD SPECIMENOrdering Facility: [facility] Address: [address] [address] Performed By: #### 5 7021-8 ####[facility]ATORYCLIA [id number] [address] OF [facility] Nucleated RBC/100 WBC (Bld) [Ratio] 0.0 /100 WBC Normal [facility] Comment on above: Order Comment: Speci men Type: BLOOD SPECIMENOrdering Facility: [facility] Address: [address] [place] [address] Performed By: #### 5 7021-8 ####[facility]ATORYCLIA [id number] [address] [place] Platelet mean volume (Bld) [Entitic vol] 11.0 fL Normal 9.0-12.7 [facility] Comment on above: Order Comment: Speci men Type: BLOOD SPECIMENOrdering Facility: [facility] Address: [address] Performed By: #### 5 7021-8 ####[facility]ORYCLIA [id number] [address] [place] Platelets (Bld) [#/Vol] 381 10*3/uL Normal 150-400 [facility] Comment on above: Order Comment: Speci men Type: BLOOD SPECIMENOrdering Facility: [facility] Address: [address] [place] [address] Performed By: #### 5 7021-8 ####[facility]ORYCLIA [id number] [address] [place] RBC (Bld) [#/Vol] 3.56 10*6/uL Low 4.20-6.00 [facility] Comment on above: Order Comment: Speci men Type: BLOOD SPECIMENOrdering Facility: [facility] Address: [address] [place] [address] Performed By: #### 5 7021-8 ####[facility]ATORYCLIA [id number] [address] OF [facility] WBC (Bld) [#/Vol] 13.29 10*3/uL High 3.70-11.00 [facility] Comment on above: Order Comment: Speci men Type: BLOOD SPECIMENOrdering Facility: [facility] Address: [address] [place] [address] Performed By: #### 5 7021-8 ####[facility]ATORYCLIA [id number] [address] OF [facility] CONSULT PROGon 07-23-2021 CONSULT PROG Normal [facility] CONSULT PROG Normal [facility] CSF MANUAL DIFFon 07-23-2021 DIF TTL, CSF 100 cells counted Normal [facility] Comment on above: Order Comment: Speci men Type: CEREBROSPINAL FLUIDOrdering Facility: [facility] Address: [address] [place] [address] Performed By: #### L [id number], [id number], 21199-7 ####[facility]ORYCLIA [id number] [address] [place] LYMPH%, CSF 2 % Low 50-90 [facility] Comment on above: Order Comment: Speci men Type: CEREBROSPINAL FLUIDOrdering Facility: [facility] Address: [address] [place] [address] Performed By: #### L [id number], [id number], 27378-2 ####[facility]ATORYCLIA [id number] [place] [address] [place] MONO%, CSF 9 % Low 10-50 [facility] Comment on above: Order Comment: Speci men Type: CEREBROSPINAL FLUIDOrdering Facility: [facility] Address: [address] [place] [address] Performed By: #### L [id number], [id number], 09171-9 ####[facility]ATORYCLIA [id number] [place] [address] [place] NEUT%, CSF 89 % High 0-3 [facility] Comment on above: Order Comment: Speci men Type: CEREBROSPINAL FLUIDOrdering Facility: [facility] Address: [address] [place] [address] Performed By: #### L [id number], [id number], 89182-4 ####[facility]ATORYCLIA [id number] [address] CSF PATHOLOGIST INTERP (LAB REFLEX ORDER-NO BILL)on 07-23-2021 CSF STAFF REVIEW Negative for maligna nt cells. Numerous bacterial organisms present, cocci in pairs and chains. Recommend correlation with CSF culture results. Normal [facility] Comment on above: Order Comment: Speci men Type: CEREBROSPINAL FLUIDOrdering Facility: [facility] Address: [address] [place] [address] Performed By: #### L [id number], [id number], 87706-7 ####[facility]ATORYCLIA [id number] [address] Pathologist name Reviewed by Amador Stevens MD [facility] Comment on above: Order Comment: Speci men Type: CEREBROSPINAL FLUIDOrdering Facility: [facility] Address: [address] [place] [address] Performed By: #### L [id number], [id number], 87676-8 ####[facility]ORATORYCLIA [id number] [address] [place] CT BRAIN WO IVCONon 07-24-19 CT BRAIN WO IVCON Normal [facility] Cell count panel (CSF)on Clarity (CSF) Clear Normal Clear [facility] Comment on above: Order Comment: Speci men Type: CEREBROSPINAL FLUIDOrdering Facility: [facility] Address: [address] [place] [address] Performed By: #### L [id number], [id number], 24650-4 ####[facility]ORYCLIA [id number] [address] Clarity (Unsp spec) Not Indicated Normal Clear [facility] Comment on above: Order Comment: Speci men Type: CEREBROSPINAL FLUIDOrdering Facility: [facility] Address: [address] [place] [address] Performed By: #### L [id number], [id number], 14084-2 ####[facility]ORYCLIA [id number] [address] Color (CSF) Colorless Normal Colorless [facility] Comment on above: Order Comment: Speci men Type: CEREBROSPINAL FLUIDOrdering Facility: [facility] Address: [address] [place] [address] Performed By: #### L [id number], [id number], 14273-7 ####[facility]ORYCLIA [id number] [address] Color (Spun CSF) Not Indicated Normal Colorless [facility] Comment on above: Order Comment: Speci men Type: CEREBROSPINAL FLUIDOrdering Facility: [facility] Address: [address] [place] [address] Performed By: #### L [id number], [id number], 37571-7 ####[facility]ATORYCLIA [id number] [address] CSF TUBE [employer]BER [employer] Normal [facility] Comment on above: Order Comment: Speci men Type: CEREBROSPINAL FLUIDOrdering Facility: [facility] Address: [address] [place] [address] Performed By: #### L [id number], [id number], 53686-8 ####[facility]ORYCLIA [id number] [address] RBC Manual cnt (CSF) [#/Vol] 7 cells/uL High 0-5 [facility] Comment on above: Order Comment: Speci men Type: CEREBROSPINAL FLUIDOrdering Facility: [facility] Address: [address] [place] [address] Performed By: #### L [id number], [id number], 03893-8 ####[facility]ORYCLIA [id number] [address] WBC Manual cnt (CSF) [#/Vol] 193 cells/uL High 0-5 [facility] Comment on above: Order Comment: Speci men Type: CEREBROSPINAL FLUIDOrdering Facility: [facility] Address: [address] [place] [address] Performed By: #### L [id number], [id number], 35218-0 ####[facility]ENTERCLIA [id number] [address] Glucose CSF-ncon 2 Glucose (CSF) [Mass/Vol] 81 mg/dL High 40-70 [facility] Comment on above: Order Comment: Speci men Type: CEREBROSPINAL FLUIDOrdering Facility: [facility] Address: [address] [place] [address] Result Comment: Lumb ar CSF glucose values of healthy patients are approximately 60% of the plasma values and must always be compared with a concurrently measured plasma value for adequate clinical interpretation.References: 1. Glucose HK (GLUC3) [package insert V 12.0 [place]]. [employer], [place], [place]. September 2015. 2. Teresa HGarfield, He, H. (2015). Chapter 7: Glucose and Lactate. Marianela Rothman.(eds.), Cerebrospinal Fluid in Clinical Neurology. [place]: [employer]. Performed By: #### 2 342-4, 2880-3 ####[facility]ATORYCLIA [id number] [address] NURSING PROGon 07-23-2021 NURSING PROG Normal [facility] NURSING PROG Normal [facility] Prot CSF-mCncon 07-23-2021 Protein (CSF) [Mass/Vol] 68 mg/dL High 15-45 [facility] Comment on above: Order Comment: Speci men Type: CEREBROSPINAL FLUIDOrdering Facility: [facility] Address: [address] [place] [address] Performed By: #### 2 342-4, 2880-3 ####[facility]ATORYCLIA [id number] [address] Urinalysis complete panel (U )on 07-23-2021 Bilirubin Ql (U) Negative Normal Negative [facility] Comment on above: Order Comment: Speci men Type: URINE SPECIMENOrdering Facility: [facility] Address: [address] [place] [address] Performed By: #### 2 4356-8 ####[facility]ATORYCLIA [id number] [address] [place] Clarity (Unsp spec) Clear Normal Clear [facility] Comment on above: Order Comment: Speci men Type: URINE SPECIMENOrdering Facility: [facility] Address: [address] [place] [address] Performed By: #### 2 4356-8 ####[facility]ATORYCLIA [id number] [address] Color (U) Light Yellow Normal yellow [facility] Comment on above: Order Comment: Speci men Type: URINE SPECIMENOrdering Facility: [facility] Address: [address] [place] [address] Performed By: #### 2 4356-8 ####[facility]ATORYCLIA [id number] [address] [place] Glucose Test strip (U) [Mass/Vol] Negative Normal Negative [facility] Comment on above: Order Comment: Speci men Type: URINE SPECIMENOrdering Facility: [facility] Address: [address] [place] [address] Performed By: #### 2 4356-8 ####[facility]ORYCLIA [id number] [address] Hemoglobin Ql (U) Negative Normal Negative [facility] Comment on above: Order Comment: Speci men Type: URINE SPECIMENOrdering Facility: [facility] Address: [address] [place] [address] Performed By: #### 2 4356-8 ####[facility]ORYCLIA [id number] [address] Ketones Ql (U) Negative Normal Negative [facility] Comment on above: Order Comment: Speci men Type: URINE SPECIMENOrdering Facility: [facility] Address: [address] [place] [address] Performed By: #### 2 4356-8 ####[facility]ATORYCLIA [id number] [address] Leukocyte esterase Test strip Ql (U) Negative Normal Negative [facility] Comment on above: Order Comment: Speci men Type: URINE SPECIMENOrdering Facility: [facility] Address: [address] [place] [address] Performed By: #### 2 4356-8 ####[facility]ATORYCLIA [id number] [address] Nitrite Ql (U) Negative Normal Negative [facility] Comment on above: Order Comment: Speci men Type: URINE SPECIMENOrdering Facility: [facility] Address: [address] [address] Performed By: #### 2 4356-8 ####[facility]ORYCLIA [id number] [address] pH (U) 6.0 [pH] Normal 5.0-8.0 [facility] Comment on above: Order Comment: Speci men Type: URINE SPECIMENOrdering Facility: [facility] Address: [address] [address] Performed By: #### 2 4356-8 ####[facility]ATORYCLIA [id number] [address] Protein (U) [Mass/Vol] 1+ Abnormal Negative [facility] Comment on above: Order Comment: Speci men Type: URINE SPECIMENOrdering Facility: [facility] Address: [address] [place] [address] Performed By: #### 2 4356-8 ####[facility]ORYCLIA [id number] [address] RBC LM.HPF (Urine sed) [#/Area] 0-3 /HPF Normal 0-3 /HPF [facility] Comment on above: Order Comment: Speci men Type: URINE SPECIMENOrdering Facility: [facility] Address: [address] [place] [address] Performed By: #### 2 4356-8 ####[facility]ATORYCLIA [id number] [address] Specific gravity (U) [Rel density] 1.018 Normal 1.005-1.030 [facility] Comment on above: Order Comment: Speci men Type: URINE SPECIMENOrdering Facility: [facility] Address: [address] [place] [address] Performed By: #### 2 4356-8 ####[facility]ATORYCLIA [id number] [address] Urobilinogen Ql (U) Normal Normal Negative [facility] Comment on above: Order Comment: Speci men Type: URINE SPECIMENOrdering Facility: [facility] Address: [address] [place] [address] Performed By: #### 2 4356-8 ####[facility]ATORYCLIA [id number] [address] WBC LM.HPF (Urine sed) [#/Area] 0-5 /HPF Normal 0-5 /HPF [facility] Comment on above: Order Comment: Speci men Type: URINE SPECIMENOrdering Facility: [facility] Address: [address] [place] [address] Performed By: #### 2 4356-8 ####[facility]ATORYCLIA [id number] [address] Vancomycin random [Mass/Vol] on 07-23-2021 Vancomycin [Mass/Vol] 12.9 ug/mL Normal 10.0-20.0 [facility] Comment on above: Order Comment: Speci men Type: BLOOD SPECIMENOrdering Facility: [facility] Address: [address] [place] [address] Result Comment: Refe rence ranges and high/low indicator flags are provided as general guidelines only. The treating physician must determine appropriate target levels/dosing based on the specific clinical situation. Performed By: #### 4 091-5 ####[facility]ATORYCLIA [id number] [address] OF [facility] XR CHEST 1V FRONTALon 2021 XR CHEST 1V FRONTAL Normal [facility] XR CHEST 1V FRONTAL Normal [facility] aPTT PPPon 07-23-2021 aPTT Coag (PPP) [Time] 32.3 s Normal 23.0-32.4 [facility] Comment on above: Order Comment: Speci men Type: BLOOD SPECIMENOrdering Facility: [facility] Address: [address] [place] [address] Performed By: #### 1 4979-9 ####[facility]ATORYCLIA [id number] [address] STATES OF [facility] aPTT Coag (PPP) [Time] 57.9 s High 23.0-32.4 [facility] Comment on above: Order Comment: Speci men Type: BLOOD SPECIMENOrdering Facility: [facility] Address: [address] [place] [address] Performed By: #### 1 4979-9 ####[facility]ATORYCLIA [id number] [address] aPTT Coag (PPP) [Time] 46.3 s High 23.0-32.4 [facility] Comment on above: Order Comment: Speci men Type: BLOOD SPECIMENOrdering Facility: [facility] Address: [address] [place] [address] Performed By: #### 1 4979-9 ####[facility]ATORYCLIA [id number] [place] [address] [place] Basic metabolic 2000 panelon 07-22-2021 Anion gap [Moles/Vol] 8 mmol/L Low -18 [facility] Comment on above: Order Comment: Speci men Type: BLOOD SPECIMENOrdering Facility: [facility] Address: [address] [place] [address] Performed By: #### 2 4321-2 ####[facility]ATORYCLIA [id number] [place] [address] [place] Calcium [Mass/Vol] 9.5 mg/dL Normal 8.5-10.2 [facility] Comment on above: Order Comment: Speci men Type: BLOOD SPECIMENOrdering Facility: [facility] Address: [address] [place] [address] Performed By: #### 2 4321-2 ####[facility]ATORYCLIA [id number] [place] [address] [place] Chloride [Moles/Vol] 105 mmol/L Normal 97-105 [facility] Comment on above: Order Comment: Speci men Type: BLOOD SPECIMENOrdering Facility: [facility] Address: [address] [place] [address] Performed By: #### 2 4321-2 ####[facility]ATORYCLIA [id number] [place] [address] [place] CO2 [Moles/Vol] 32 mmol/L High 22-30 [facility] Comment on above: Order Comment: Speci men Type: BLOOD SPECIMENOrdering Facility: [facility] Address: [address] [place] [address] Performed By: #### 2 4321-2 ####[facility]ORYCLIA [id number] [address] STATES OF [facility] Creatinine [Mass/Vol] 0.75 mg/dL Normal 0.73-1.22 [facility] Comment on above: Order Comment: Shira feldman Type: BLOOD SPECIMENOrdering Facility: [facility] Address: [address] [address] Performed By: #### 2 4321-2 ####[facility]ATORYCLIA [id number] [address] ESTIMATED GLOMERULAR FILTRATION RATE 98 mL/min/1.73m??? Normal >=60 [facility] Comment on above: Order Comment: Shira feldman Type: BLOOD SPECIMENOrdering Facility: [facility] Address: [address] [place] [address] Result Comment: Luzmaria mated Glomerular Filtration Rate [...] actual GFR. Performed By: #### 2 4321-2 ####[facility]ATORYCLIA [id number] [address] [place] Glucose [Mass/Vol] 128 mg/dL High 74-99 [facility] Comment on above: Order Comment: Shira feldman Type: BLOOD SPECIMENOrdering Facility: [facility] Address: [address] [place] [place] [address] Result Comment: The [employer] (ADA) provides guidance for cutoff [...] Standards of Medical Care in Diabetes 2016, [employer]. Diabetes Care. 2016.39(Suppl 1). Performed By: #### 2 4321-2 ####[facility]ATORYCLIA [id number] [address] STATES OF [facility] Potassium [Moles/Vol] 3.7 mmol/L Normal 3.7-5.1 [facility] Comment on above: Order Comment: Speci men Type: BLOOD SPECIMENOrdering Facility: [facility] Address: [address] [place] [address] Performed By: #### 2 4321-2 ####[facility]ATORYCLIA [id number] [address] Sodium [Moles/Vol] 145 mmol/L High 136-144 [facility] Comment on above: Order Comment: Speci men Type: BLOOD SPECIMENOrdering Facility: [facility] Address: [address] [place] [address] Performed By: #### 2 4321-2 ####[facility]ATORYCLIA [id number] [address] STATES [facility] Urea nitrogen [Mass/Vol] 39 mg/dL High 9-24 [facility] Comment on above: Order Comment: Speci men Type: BLOOD SPECIMENOrdering Facility: [facility] Address: [address] [place] [address] Performed By: #### 2 4321-2 ####[facility]ATORYCLIA [id number] [address] [place] CASE MANAGEMon 07-22-2021 CASE MANAGEM Normal [facility] CBC W Auto Differential pane l (Bld)on 07-22-2021 Basophils (Bld) [#/Vol] 0.06 10*3/uL Normal <0.11 [facility] Comment on above: Order Comment: Speci men Type: BLOOD SPECIMENOrdering Facility: [facility] Address: [address] [place] [address] Performed By: #### 5 7021-8 ####[facility]ATORYCLIA [id number] [address] [place] Basophils/100 WBC (Bld) 0.5 % Normal [facility] Comment on above: Order Comment: Speci men Type: BLOOD SPECIMENOrdering Facility: [facility] Address: [address] [place] [address] Performed By: #### 5 7021-8 ####[facility]ORYCLIA [id number] [address] Differential cell count method Nom (Bld) Auto Normal [facility] Comment on above: Order Comment: Speci men Type: BLOOD SPECIMENOrdering Facility: [facility] Address: [address] [place] [address] Performed By: #### 5 7021-8 ####[facility]ATORYCLIA [id number] [address] [place] Eosinophils (Bld) [#/Vol] 0.44 10*3/uL Normal <0.46 [facility] Comment on above: Order Comment: Speci men Type: BLOOD SPECIMENOrdering Facility: [facility] Address: [address] [place] [address] Performed By: #### 5 7021-8 ####[facility]ORYCLIA [id number] [address] [place] Eosinophils/100 WBC (Bld) 3.9 % Normal [facility] Comment on above: Order Comment: Speci men Type: BLOOD SPECIMENOrdering Facility: [facility] Address: [address] [place] [address] Performed By: #### 5 7021-8 ####[facility]ATORYCLIA [id number] [address] Erythrocyte distribution width (RBC) [Ratio] 17.0 % High 11.5-15.0 [facility] Comment on above: Order Comment: Speci men Type: BLOOD SPECIMENOrdering Facility: [facility] Address: [address] [place] [address] Performed By: #### 5 7021-8 ####[facility]ATORYCLIA [id number] [address] Hematocrit (Bld) [Volume fraction] 32.0 % Low 39.0-51.0 [facility] Comment on above: Order Comment: Speci men Type: BLOOD SPECIMENOrdering Facility: [facility] Address: [address] [place] [address] Performed By: #### 5 7021-8 ####[facility]ATORYCLIA [id number] [address] Hemoglobin (Bld) [Mass/Vol] 9.3 g/dL Low 13.0-17.0 [facility] Comment on above: Order Comment: Speci men Type: BLOOD SPECIMENOrdering Facility: [facility] Address: [address] [place] [address] Performed By: #### 5 7021-8 ####[facility]ATORYCLIA [id number] [address] IMMATURE GRAN % 0.5 % Normal [facility] Comment on above: Order Comment: Speci men Type: BLOOD SPECIMENOrdering Facility: [facility] Address: [address] [place] [address] Performed By: #### 5 7021-8 ####[facility]ATORYCLIA [id number] [address] IMMATURE GRAN ABS 0.06 k/uL Normal <0.10 [facility] Comment on above: Order Comment: Speci men Type: BLOOD SPECIMENOrdering Facility: [facility] Address: [address] [place] [address] Performed By: #### 5 7021-8 ####[facility]ATORYCLIA [id number] [address] Lymphocytes (Bld) [#/Vol] 1.83 10*3/uL Normal 1.00-4.00 [facility] Comment on above: Order Comment: Speci men Type: BLOOD SPECIMENOrdering Facility: [facility] Address: [address] [place] [address] Performed By: #### 5 7021-8 ####[facility]ORYCLIA [id number] [address] Lymphocytes/100 WBC (Bld) 16.1 % Normal [facility] Comment on above: Order Comment: Speci men Type: BLOOD SPECIMENOrdering Facility: [facility] Address: [address] [place] [address] Performed By: #### 5 7021-8 ####[facility]ATORYCLIA [id number] [address] MCH (RBC) [Entitic mass] 27.0 pg Normal 26.0-34.0 [facility] Comment on above: Order Comment: Speci men Type: BLOOD SPECIMENOrdering Facility: [facility] Address: [address] [place] [address] Performed By: #### 5 7021-8 ####[facility]ATORYCLIA [id number] [address] STATES [facility] MCHC (RBC) [Mass/Vol] 29.1 g/dL Low 30.5-36.0 [facility] Comment on above: Order Comment: Speci men Type: BLOOD SPECIMENOrdering Facility: [facility] Address: [address] [place] [address] Performed By: #### 5 7021-8 ####[facility]ATORYCLIA [id number] [address] STATES [facility] MCV (RBC) [Entitic vol] 92.8 fL Normal 80.0-100.0 [facility] Comment on above: Order Comment: Speci men Type: BLOOD SPECIMENOrdering Facility: [facility] Address: [address] [place] [address] Performed By: #### 5 7021-8 ####[facility]ORATORYCLIA [id number] [place] [address] [place] Monocytes (Bld) [#/Vol] 0.87 10*3/uL High <0.87 [facility] Comment on above: Order Comment: Speci men Type: BLOOD SPECIMENOrdering Facility: [facility] Address: [address] [place] [address] Performed By: #### 5 7021-8 ####[facility]ATORYCLIA [id number] [address] [place] Monocytes/100 WBC (Bld) 7.6 % Normal [facility] Comment on above: Order Comment: Speci men Type: BLOOD SPECIMENOrdering Facility: [facility] Address: [address] [place] [address] Performed By: #### 5 7021-8 ####[facility]ATORYCLIA [id number] [address] [place] Neutrophils (Bld) [#/Vol] 8.12 10*3/uL High 1.45-7.50 [facility] Comment on above: Order Comment: Speci men Type: BLOOD SPECIMENOrdering Facility: [facility] Address: [address] [place] [address] Performed By: #### 5 7021-8 ####[facility]ATORYCLIA [id number] [address] STATES [facility] Neutrophils/100 WBC (Bld) 71.4 % Normal [facility] Comment on above: Order Comment: Speci men Type: BLOOD SPECIMENOrdering Facility: [facility] Address: [address] [place] [address] Performed By: #### 5 7021-8 ####[facility]ATORYCLIA [id number] [place] [address] [place] Nucleated RBC (Bld) [#/Vol] 10*3/uL Normal <0.01 [facility] Comment on above: Order Comment: Speci men Type: BLOOD SPECIMENOrdering Facility: [facility] Address: [address] [place] [address] Performed By: #### 5 7021-8 ####[facility]ORATORYCLIA [id number] [address] [place] Nucleated RBC/100 WBC (Bld) [Ratio] 0.0 /100 WBC Normal [facility] Comment on above: Order Comment: Speci men Type: BLOOD SPECIMENOrdering Facility: [facility] Address: [address] [place] [address] Performed By: #### 5 7021-8 ####[facility]ATORYCLIA [id number] [address] [place] Platelet mean volume (Bld) [Entitic vol] 10.8 fL Normal 9.0-12.7 [facility] Comment on above: Order Comment: Speci men Type: BLOOD SPECIMENOrdering Facility: [facility] Address: [address] [place] [address] Performed By: #### 5 7021-8 ####[facility]ORATORYCLIA [id number] [address] Platelets (Bld) [#/Vol] 362 10*3/uL Normal 150-400 [facility] Comment on above: Order Comment: Speci men Type: BLOOD SPECIMENOrdering Facility: [facility] Address: [address] [place] [address] Performed By: #### 5 7021-8 ####[facility]ATORYCLIA [id number] [address] [place] RBC (Bld) [#/Vol] 3.45 10*6/uL Low 4.20-6.00 [facility] Comment on above: Order Comment: Speci men Type: BLOOD SPECIMENOrdering Facility: [facility] Address: [address] [place] [address] Performed By: #### 5 7021-8 ####[facility]ORATORYCLIA [id number] [address] [place] WBC (Bld) [#/Vol] 11.38 10*3/uL High 3.70-11.00 [facility] Comment on above: Order Comment: Speci men Type: BLOOD SPECIMENOrdering Facility: [facility] Address: [address] [place] [address] Performed By: #### 5 7021-8 ####[facility]ATORYCLIA [id number] [address] [place] Magnesium SerPl-mCncon 07-22 Magnesium [Mass/Vol] 2.3 mg/dL Normal 1.7-2.3 [facility] Comment on above: Order Comment: Speci men Type: BLOOD SPECIMENOrdering Facility: [facility] Address: [address] [place] [address] Performed By: #### 1 9123-9, 2777-1, 93949-5 ####[facility]ENTERCL[facility] [id number] [address] [place] NT-proBNP SerPl-mCncon 07-22 Natriuretic peptide.B prohormone N-Terminal [Mass/Vol] 328 pg/mL High <125 [facility] Comment on above: Order Comment: Speci men Type: BLOOD SPECIMENOrdering Facility: [facility] Address: [address] [place] [address] Performed By: #### 1 9123-9, 2777-1, 91475-2 ####[facility]ORYCLIA [id number] [address] [place] NURSING PROGon 07-22-2021 NURSING PROG Normal [facility] NUTRITIONon 07-22-2021 NUTRITION Normal [facility] Phosphate SerPl-mCncon 07-22 Phosphate [Mass/Vol] 3.5 mg/dL Normal 2.7-4.8 [facility] Comment on above: Order Comment: Speci men Type: BLOOD SPECIMENOrdering Facility: [facility] Address: [address] [place] [address] Performed By: #### 1 9123-9, 2777-1, 39284-1 ####[facility]ORYCLIA [id number] [address] THERAPY NTon 07-22-2021 THERAPY NT Normal [facility] THERAPY NT Normal [facility] aPTT PPPon 07-22-2021 aPTT Coag (PPP) [Time] 50.1 s High 23.0-32.4 [facility] Comment on above: Order Comment: Speci men Type: BLOOD SPECIMENOrdering Facility: [facility] Address: [address] [place] [address] Performed By: #### 1 4979-9 ####[facility]ORYCLIA [id number] [address] [place] ALLIED HEALTHon 07-21-2021 ALLIED HEALTH Normal [facility] Bacteria Spec Resp Culton Bacteria identified Respiratory culture Nom (Unsp spec) Abnormal [facility] Comment on above: Performed By: #### 3 2355-0 ####[facility]ORYCLIA [id number] [address] [place] Basic metabolic 2000 panelon 07-21-2021 Anion gap [Moles/Vol] 9 mmol/L Normal 9-18 [facility] Comment on above: Order Comment: Speci men Type: BLOOD SPECIMENOrdering Facility: [facility] Address: [facility] [place] [address] Performed By: #### 1 9123-9, 2777-1, 70631-8 ####[facility]ORYCLIA [id number] [address] [place] Calcium [Mass/Vol] 9.9 mg/dL Normal 8.5-10.2 [facility] Comment on above: Order Comment: Speci men Type: BLOOD SPECIMENOrdering Facility: [facility] Address: [address] [place] [address] Performed By: #### 1 9123-9, 2777-1, 99146-5 ####[facility]ORYCLIA [id number] [address] Chloride [Moles/Vol] 103 mmol/L Normal 97-105 [facility] Comment on above: Order Comment: Speci men Type: BLOOD SPECIMENOrdering Facility: [facility] Address: [address] [place] [address] Performed By: #### 1 9123-9, 2777, ####[facility]ORYCLIA [id number] [address] STATES OF [facility] CO2 [Moles/Vol] 33 mmol/L High 22-30 [facility] Comment on above: Order Comment: Speci men Type: BLOOD SPECIMENOrdering Facility: [facility] Address: [address] [place] [address] Performed By: #### 1 9123-9, 27711-04, ####[facility]ATORYCLIA [id number] [address] OF [facility] Creatinine [Mass/Vol] 0.80 mg/dL Normal 0.73-1.22 [facility] Comment on above: Order Comment: Speci men Type: BLOOD SPECIMENOrdering Facility: [facility] Address: [address] [place] [address] Performed By: #### 1 9123-9, 27711-04, ####[facility]ORYCLIA [id number] [address] ESTIMATED GLOMERULAR FILTRATION RATE 96 mL/min/1.73m??? Normal >=60 [facility] Comment on above: Order Comment: Speci men Type: BLOOD SPECIMENOrdering Facility: [facility] Address: [address] [place] [place] [address] Result Comment: Luzmaria mated Glomerular Filtration Rate [...] GFR. Performed By: #### 1 9123-9, 27711-04, 80088-2 ####[facility]ATORYCLIA [id number] [place] [address] [place] Glucose [Mass/Vol] 148 mg/dL High 74-99 [facility] Comment on above: Order Comment: Speci men Type: BLOOD SPECIMENOrdering Facility: [facility] Address: [address] [place] [address] Result Comment: The [employer] (ADA) provides guidance for cutoff [...] Standards of Medical Care in Diabetes 2016, [employer]. Diabetes Care. 2016.39(Suppl 1). Performed By: #### 1 9123-9, 2777, 23563-9 ####[facility]ATORYCLIA [id number] [place] [address] [place] Potassium [Moles/Vol] 4.1 mmol/L Normal 3.7-5.1 [facility] Comment on above: Order Comment: Speci men Type: BLOOD SPECIMENOrdering Facility: [facility] Address: [address] [place] [address] Performed By: #### 1 9123-9, 27711-04, 51809-7 ####[facility]ATORYCLIA [id number] [place] [address] [place] Sodium [Moles/Vol] 145 mmol/L High 136-144 [facility] Comment on above: Order Comment: Speci men Type: BLOOD SPECIMENOrdering Facility: [facility] Address: [address] [place] [address] Performed By: #### 1 9123-9, 27711-04, 18112-6 ####[facility]ATORYCLIA [id number] [address] STATES [facility] Urea nitrogen [Mass/Vol] 40 mg/dL High 9-24 [facility] Comment on above: Order Comment: Speci men Type: BLOOD SPECIMENOrdering Facility: [facility] Address: [address] [place] [address] Performed By: #### 1 9123-9, 2777-1, 86022-7 ####[facility]ATORYCLIA [id number] [place] [address] [place] CBC W Auto Differential pane l (Bld)on 07-21-2021 Basophils (Bld) [#/Vol] 0.06 10*3/uL Normal <0.11 [facility] Comment on above: Order Comment: Speci men Type: BLOOD SPECIMENOrdering Facility: [facility] Address: [address] [place] [address] Performed By: #### 5 7021-8 ####[facility]ATORYCLIA [id number] [address] [place] Basophils/100 WBC (Bld) 0.4 % Normal [facility] Comment on above: Order Comment: Speci men Type: BLOOD SPECIMENOrdering Facility: [facility] Address: [address] [place] [address] Performed By: #### 5 7021-8 ####[facility]ATORYCLIA [id number] [address] Differential cell count method Nom (Bld) Auto Normal [facility] Comment on above: Order Comment: Speci men Type: BLOOD SPECIMENOrdering Facility: [facility] Address: [address] [place] [address] Performed By: #### 5 7021-8 ####[facility]ATORYCLIA [id number] [place] [address] [place] Eosinophils (Bld) [#/Vol] 0.04 10*3/uL Normal <0.46 [facility] Comment on above: Order Comment: Speci men Type: BLOOD SPECIMENOrdering Facility: [facility] Address: [address] [place] [address] Performed By: #### 5 7021-8 ####[facility]ATORYCLIA [id number] [address] [place] Eosinophils/100 WBC (Bld) 0.3 % Normal [facility] Comment on above: Order Comment: Speci men Type: BLOOD SPECIMENOrdering Facility: [facility] Address: [address] [place] [address] Performed By: #### 5 7021-8 ####[facility]ATORYCLIA [id number] [address] Erythrocyte distribution width (RBC) [Ratio] 17.0 % High 11.5-15.0 [facility] Comment on above: Order Comment: Speci men Type: BLOOD SPECIMENOrdering Facility: [facility] Address: [address] [place] [address] Performed By: #### 5 7021-8 ####[facility]ATORYCLIA [id number] [address] Hematocrit (Bld) [Volume fraction] 33.1 % Low 39.0-51.0 [facility] Comment on above: Order Comment: Speci men Type: BLOOD SPECIMENOrdering Facility: [facility] Address: [address] [place] [address] Performed By: #### 5 7021-8 ####[facility]ATORYCLIA [id number] [address] [place] Hemoglobin (Bld) [Mass/Vol] 9.7 g/dL Low 13.0-17.0 [facility] Comment on above: Order Comment: Speci men Type: BLOOD SPECIMENOrdering Facility: [facility] Address: [address] [place] [address] Performed By: #### 5 7021-8 ####[facility]ATORYCLIA [id number] [address] IMMATURE GRAN % 0.5 % Normal [facility] Comment on above: Order Comment: Speci men Type: BLOOD SPECIMENOrdering Facility: [facility] Address: [address] [place] [address] Performed By: #### 5 7021-8 ####[facility]ATORYCLIA [id number] [address] IMMATURE GRAN ABS 0.07 k/uL Normal <0.10 [facility] Comment on above: Order Comment: Speci men Type: BLOOD SPECIMENOrdering Facility: [facility] Address: [address] [place] [address] Performed By: #### 5 7021-8 ####[facility]ORYCLIA [id number] [address] Lymphocytes (Bld) [#/Vol] 1.99 10*3/uL Normal 1.00-4.00 [facility] Comment on above: Order Comment: Speci men Type: BLOOD SPECIMENOrdering Facility: [facility] Address: [address] [place] [address] Performed By: #### 5 7021-8 ####[facility]ORYCLIA [id number] [address] Lymphocytes/100 WBC (Bld) 13.4 % Normal [facility] Comment on above: Order Comment: Speci men Type: BLOOD SPECIMENOrdering Facility: [facility] Address: [address] [place] [address] Performed By: #### 5 7021-8 ####[facility]ATORYCLIA [id number] [address] STATES [facility] MCH (RBC) [Entitic mass] 27.2 pg Normal 26.0-34.0 [facility] Comment on above: Order Comment: Speci men Type: BLOOD SPECIMENOrdering Facility: [facility] Address: [address] [place] [address] Performed By: #### 5 7021-8 ####[facility]ORYCLIA [id number] [address] [place] MCHC (RBC) [Mass/Vol] 29.3 g/dL Low 30.5-36.0 [facility] Comment on above: Order Comment: Speci men Type: BLOOD SPECIMENOrdering Facility: [facility] Address: [address] [place] [address] Performed By: #### 5 7021-8 ####[facility]ORYCLIA [id number] [address] [place] MCV (RBC) [Entitic vol] 92.7 fL Normal 80.0-100.0 [facility] Comment on above: Order Comment: Speci men Type: BLOOD SPECIMENOrdering Facility: [facility] Address: [address] [place] [address] Performed By: #### 5 7021-8 ####[facility]ORYCLIA [id number] [address] [place] Monocytes (Bld) [#/Vol] 1.10 10*3/uL High <0.87 [facility] Comment on above: Order Comment: Speci men Type: BLOOD SPECIMENOrdering Facility: [facility] Address: [address] [place] [address] Performed By: #### 5 7021-8 ####[facility]ORYCLIA [id number] [address] STATES OF [facility] Monocytes/100 WBC (Bld) 7.4 % Normal [facility] Comment on above: Order Comment: Speci men Type: BLOOD SPECIMENOrdering Facility: [facility] Address: [address] [place] [address] Performed By: #### 5 7021-8 ####[facility]ORYCLIA [id number] [address] [place] Neutrophils (Bld) [#/Vol] 11.61 10*3/uL High 1.45-7.50 [facility] Comment on above: Order Comment: Speci men Type: BLOOD SPECIMENOrdering Facility: [facility] Address: [address] [place] [address] Performed By: #### 5 7021-8 ####[facility]ORYCLIA [id number] [address] Neutrophils/100 WBC (Bld) 78.0 % Normal [facility] Comment on above: Order Comment: Speci men Type: BLOOD SPECIMENOrdering Facility: [facility] Address: [address] [place] [address] Performed By: #### 5 7021-8 ####[facility]ORYCLIA [id number] [address] Nucleated RBC (Bld) [#/Vol] 10*3/uL Normal <0.01 [facility] Comment on above: Order Comment: Speci men Type: BLOOD SPECIMENOrdering Facility: [facility] Address: [address] [place] [address] Performed By: #### 5 7021-8 ####[facility]ATORYCLIA [id number] [address] Nucleated RBC/100 WBC (Bld) [Ratio] 0.0 /100 WBC Normal [facility] Comment on above: Order Comment: Speci men Type: BLOOD SPECIMENOrdering Facility: [facility] Address: [address] [place] [address] Performed By: #### 5 7021-8 ####[facility]ATORYCLIA [id number] [address] Platelet mean volume (Bld) [Entitic vol] 10.4 fL Normal 9.0-12.7 [facility] Comment on above: Order Comment: Speci men Type: BLOOD SPECIMENOrdering Facility: [facility] Address: [address] [place] [address] Performed By: #### 5 7021-8 ####[facility]ORYCLIA [id number] [address] [place] Platelets (Bld) [#/Vol] 396 10*3/uL Normal 150-400 [facility] Comment on above: Order Comment: Speci men Type: BLOOD SPECIMENOrdering Facility: [facility] Address: [address] [place] [address] Performed By: #### 5 7021-8 ####[facility]ATORYCLIA [id number] [place] [address] [place] RBC (Bld) [#/Vol] 3.57 10*6/uL Low 4.20-6.00 [facility] Comment on above: Order Comment: Speci men Type: BLOOD SPECIMENOrdering Facility: [facility] Address: [address] [place] [address] Performed By: #### 5 7021-8 ####[facility]ORYCLIA [id number] [address] STATES OF [facility] WBC (Bld) [#/Vol] 14.87 10*3/uL High 3.70-11.00 [facility] Comment on above: Order Comment: Speci men Type: BLOOD SPECIMENOrdering Facility: [facility] Address: [address] [place] [address] Performed By: #### 5 7021-8 ####[facility]ORYCLIA [id number] [address] OF [facility] Gas and Carbon monoxide pane l (BldV)on 07-21-2021 Base excess Calc (BldV) [Moles/Vol] 7 mmol/L High 0-2 [facility] Comment on above: Order Comment: Speci men Type: VENOUS BLOOD SPECIMENOrdering Facility: [facility] Address: [address] [place] [address] Performed By: #### 2 4344-4 ####[facility]ORYCLIA [id number] [address] Body temperature 98.6 [degF] Normal [facility] Comment on above: Order Comment: Speci men Type: VENOUS BLOOD SPECIMENOrdering Facility: [facility] Address: [address] [place] [address] Performed By: #### 2 4344-4 ####[facility]ATORYCLIA [id number] [address] CALCIUM IONIZED, PH CORRECTED 1.21 mmol/L Normal 1.08-1.30 [facility] Comment on above: Order Comment: Speci men Type: VENOUS BLOOD SPECIMENOrdering Facility: [facility] Address: [address] [place] [address] Performed By: #### 2 4344-4 ####[facility]ATORYCLIA [id number] [address] [place] Calcium.ionized (BldV) [Mass/Vol] 1.23 mmol/L Normal 1.08-1.30 [facility] Comment on above: Order Comment: Speci men Type: VENOUS BLOOD SPECIMENOrdering Facility: [facility] Address: [address] [place] [address] Performed By: #### 2 4344-4 ####[facility]ATORYCLIA [id number] [address] Carboxyhemoglobin (BldV) [Mass fraction] 2.3 % High 0.0-2.0 [facility] Comment on above: Order Comment: Speci men Type: VENOUS BLOOD SPECIMENOrdering Facility: [facility] Address: [address] [place] [address] Result Comment: Carb oxyhemoglobin Reference Range for Smokers: 2.0-8.0% Performed By: #### 2 4344-4 ####[facility]ATORYCLIA [id number] [address] [place] CO2 (BldV) [Partial pressure] 58 mm[Hg] High 42-55 [facility] Comment on above: Order Comment: Speci men Type: VENOUS BLOOD SPECIMENOrdering Facility: [facility] Address: [address] [place] [address] Performed By: #### 2 4344-4 ####[facility]ATORYCLIA [id number] [place] [address] [place] CO2 [Moles/Vol] 31 mmol/L High 25-29 [facility] Comment on above: Order Comment: Speci men Type: VENOUS BLOOD SPECIMENOrdering Facility: [facility] Address: [address] [place] [address] Performed By: #### 2 4344-4 ####[facility]ATORYCLIA [id number] [place] [address] [place] Glucose [Mass/Vol] 146 mg/dL High 60-105 [facility] Comment on above: Order Comment: Speci men Type: VENOUS BLOOD SPECIMENOrdering Facility: [facility] Address: [address] [place] [address] Performed By: #### 2 4344-4 ####[facility]ATORYCLIA [id number] [place] [address] [place] HCO3 (Bld) [Moles/Vol] 33 mmol/L High 24-28 [facility] Comment on above: Order Comment: Speci men Type: VENOUS BLOOD SPECIMENOrdering Facility: [facility] Address: [address] [place] [address] Performed By: #### 2 4344-4 ####[facility]ATORYCLIA [id number] [address] [place] Hematocrit (Bld) [Volume fraction] 30.1 % Low 39.0-51.0 [facility] Comment on above: Order Comment: Speci men Type: VENOUS BLOOD SPECIMENOrdering Facility: [facility] Address: [address] [place] [address] Performed By: #### 2 4344-4 ####[facility]ORATORYCLIA [id number] [place] [address] [place] Hemoglobin (Bld) [Mass/Vol] 9.7 g/dL Low 13.0-17.0 [facility] Comment on above: Order Comment: Speci men Type: VENOUS BLOOD SPECIMENOrdering Facility: [facility] Address: [address] [place] [address] Performed By: #### 2 4344-4 ####[facility] LABORATORYCLIA [id number] [address] [place] Methemoglobin (Bld) [Mass fraction] % Normal 0.0-1.5 [facility] Comment on above: Order Comment: Speci men Type: VENOUS BLOOD SPECIMENOrdering Facility: [facility] Address: [address] [place] [address] Performed By: #### 2 4344-4 ####[facility]ORATORYCLIA [id number] [address] [place] O2 THERAPY NC = Nasal Cannula Normal [facility] Comment on above: Order Comment: Speci men Type: VENOUS BLOOD SPECIMENOrdering Facility: [facility] Address: [address] [place] [address] Performed By: #### 2 4344-4 ####[facility]ATORYCLIA [id number] [address] [place] Oxygen (BldV) [Partial pressure] 64 mm[Hg] High 35-45 [facility] Comment on above: Order Comment: Speci men Type: VENOUS BLOOD SPECIMENOrdering Facility: [facility] Address: [address] [place] [address] Performed By: #### 2 4344-4 ####[facility]ATORYCLIA [id number] [address] [place] Oxygen saturation in Blood 90 % High 60-85 [facility] Comment on above: Order Comment: Speci men Type: VENOUS BLOOD SPECIMENOrdering Facility: [facility] Address: [address] [place] [address] Performed By: #### 2 4344-4 ####[facility] LABORATORYCLIA [id number] [address] [place] Oxyhemoglobin (BldV) [Mass fraction] 87 % High 60-85 [facility] Comment on above: Order Comment: Speci men Type: VENOUS BLOOD SPECIMENOrdering Facility: [facility] Address: [address] [place] [place] [address] Performed By: #### 2 4344-4 ####[facility]ORATORYCLIA [id number] [place] [address] [place] pH (BldV) 7.38 [pH] Normal 7.32-7.42 [facility] Comment on above: Order Comment: Speci men Type: VENOUS BLOOD SPECIMENOrdering Facility: [facility] Address: [address] [place] [address] Performed By: #### 2 4344-4 ####[facility]ATORYCLIA [id number] [address] [place] Potassium [Moles/Vol] 3.8 mmol/L Normal 3.5-5.0 [facility] Comment on above: Order Comment: Speci men Type: VENOUS BLOOD SPECIMENOrdering Facility: [facility] Address: [address] [place] [address] Performed By: #### 2 4344-4 ####[facility]ATORYCLIA [id number] [address] [place] Sodium [Moles/Vol] 145 mmol/L High 136-144 [facility] Comment on above: Order Comment: Speci men Type: VENOUS BLOOD SPECIMENOrdering Facility: [facility] Address: [address] [place] [address] Performed By: #### 2 4344-4 ####[facility]ATORYCLIA [id number] [place] [address] [place] Base excess Calc (BldV) [Moles/Vol] 8 mmol/L High 0-2 [facility] Comment on above: Order Comment: Speci men Type: VENOUS BLOOD SPECIMENOrdering Facility: [facility] Address: [facility] [place] [address] Performed By: #### 2 4344-4 ####[facility]ORATORYCLIA [id number] [address] [place] Body temperature 100.22 [degF] Normal [facility] Comment on above: Order Comment: Speci men Type: VENOUS BLOOD SPECIMENOrdering Facility: [facility] Address: [address] [place] [address] Performed By: #### 2 4344-4 ####[facility]ORATORYCLIA [id number] [address] OF [facility] CALCIUM IONIZED, PH CORRECTED 1.25 mmol/L Normal 1.08-1.30 [facility] Comment on above: Order Comment: Speci men Type: VENOUS BLOOD SPECIMENOrdering Facility: [facility] Address: [address] [place] [address] Performed By: #### 2 4344-4 ####[facility] LABORATORYCLIA [id number] [address] [place] Calcium.ionized (BldV) [Mass/Vol] 1.24 mmol/L Normal 1.08-1.30 [facility] Comment on above: Order Comment: Speci men Type: VENOUS BLOOD SPECIMENOrdering Facility: [facility] Address: [address] [place] [address] Performed By: #### 2 4344-4 ####COMMUNITY [facility]ATORYCLIA [id number] [address] [place] Carboxyhemoglobin (BldV) [Mass fraction] 2.5 % High 0.0-2.0 [facility] Comment on above: Order Comment: Speci men Type: VENOUS BLOOD SPECIMENOrdering Facility: [facility] Address: [address] [place] [place] [address] Result Comment: Carb oxyhemoglobin Reference Range for Smokers: 2.0-8.0% Performed By: #### 2 4344-4 ####[facility]ATORYCLIA [id number] [address] [place] CO2 (BldV) [Partial pressure] 53 mm[Hg] Normal 42-55 [facility] Comment on above: Order Comment: Speci men Type: VENOUS BLOOD SPECIMENOrdering Facility: [facility] Address: [address] [place] [place] [address] Performed By: #### 2 4344-4 ####[facility]ATORYCLIA [id number] [address] [place] CO2 [Moles/Vol] 31 mmol/L High 25-29 [facility] Comment on above: Order Comment: Speci men Type: VENOUS BLOOD SPECIMENOrdering Facility: [facility] Address: [address] [place] [address] Performed By: #### 2 4344-4 ####[facility]ATORYCLIA [id number] [address] [place] CO2 adjusted to patient's actual temperature (BldV) [Partial pressure] 56 mmHg High 42-55 [facility] Comment on above: Order Comment: Speci men Type: VENOUS BLOOD SPECIMENOrdering Facility: [facility] Address: [address] [place] [address] Performed By: #### 2 4344-4 ####[facility] LABORATORYCLIA [id number] [address] [place] Glucose [Mass/Vol] 131 mg/dL High 60-105 [facility] Comment on above: Order Comment: Speci men Type: VENOUS BLOOD SPECIMENOrdering Facility: [facility] Address: [address] [place] [address] Performed By: #### 2 4344-4 ####[facility]ATORYCLIA [id number] [address] [place] HCO3 (Bld) [Moles/Vol] 33 mmol/L High 24-28 [facility] Comment on above: Order Comment: Speci men Type: VENOUS BLOOD SPECIMENOrdering Facility: [facility] Address: [address] [place] [address] Performed By: #### 2 4344-4 ####[facility]ATORYCLIA [id number] [address] [place] Hematocrit (Bld) [Volume fraction] 30.8 % Low 39.0-51.0 [facility] Comment on above: Order Comment: Speci men Type: VENOUS BLOOD SPECIMENOrdering Facility: [facility] Address: [address] [address] Performed By: #### 2 4344-4 ####[facility]ATORYCLIA [id number] [address] Hemoglobin (Bld) [Mass/Vol] 10.0 g/dL Low 13.0-17.0 [facility] Comment on above: Order Comment: Speci men Type: VENOUS BLOOD SPECIMENOrdering Facility: [facility] Address: [address] [place] [address] Performed By: #### 2 4344-4 ####[facility]ATORYCLIA [id number] [address] Methemoglobin (Bld) [Mass fraction] % Normal 0.0-1.5 [facility] Comment on above: Order Comment: Speci men Type: VENOUS BLOOD SPECIMENOrdering Facility: [facility] Address: [address] [place] [address] Performed By: #### 2 4344-4 ####[facility]ATORYCLIA [id number] [address] O2 THERAPY NC = Nasal Cannula Normal [facility] Comment on above: Order Comment: Speci men Type: VENOUS BLOOD SPECIMENOrdering Facility: [facility] Address: [address] [place] [address] Performed By: #### 2 4344-4 ####[facility]ORATORYCLIA [id number] [address] Oxygen (BldV) [Partial pressure] 58 mm[Hg] High 35-45 [facility] Comment on above: Order Comment: Speci men Type: VENOUS BLOOD SPECIMENOrdering Facility: [facility] Address: [address] [place] [address] Performed By: #### 2 4344-4 ####[facility]ATORYCLIA [id number] [address] Oxygen adjusted to patient's actual temperature (BldV) [Partial pressure] 61 mmHg High 35-45 [facility] Comment on above: Order Comment: Speci men Type: VENOUS BLOOD SPECIMENOrdering Facility: [facility] Address: [address] [address] Performed By: #### 2 4344-4 ####[facility]ATORYCLIA [id number] [address] [place] Oxygen saturation in Blood 88 % High 60-85 [facility] Comment on above: Order Comment: Speci men Type: VENOUS BLOOD SPECIMENOrdering Facility: [facility] Address: [address] [place] [address] Performed By: #### 2 4344-4 ####[facility]ATORYCLIA [id number] [address] [place] Oxyhemoglobin (BldV) [Mass fraction] 85 % Normal 60-85 [facility] Comment on above: Order Comment: Speci men Type: VENOUS BLOOD SPECIMENOrdering Facility: [facility] Address: [address] [place] [address] Performed By: #### 2 4344-4 ####[facility] LABORATORYCLIA [id number] [address] [place] pH (BldV) 7.41 [pH] Normal 7.32-7.42 [facility] Comment on above: Order Comment: Speci men Type: VENOUS BLOOD SPECIMENOrdering Facility: [facility] Address: [address] [place] [address] Performed By: #### 2 4344-4 ####[facility]ATORYCLIA [id number] [address] [place] pH adjusted to patient's actual temperature (BldV) 7.40 Normal 7.32-7.42 [facility] Comment on above: Order Comment: Speci men Type: VENOUS BLOOD SPECIMENOrdering Facility: [facility] Address: [address] [place] [address] Performed By: #### 2 4344-4 ####[facility]ORATORYCLIA [id number] [address] STATES OF [facility] Potassium [Moles/Vol] 4.0 mmol/L Normal 3.5-5.0 [facility] Comment on above: Order Comment: Speci men Type: VENOUS BLOOD SPECIMENOrdering Facility: [facility] Address: [address] [place] [address] Performed By: #### 2 4344-4 ####[facility]ATORYCLIA [id number] [address] Sodium [Moles/Vol] 146 mmol/L High 136-144 [facility] Comment on above: Order Comment: Speci men Type: VENOUS BLOOD SPECIMENOrdering Facility: [facility] Address: [address] [place] [address] Performed By: #### 2 4344-4 ####[facility]ATORYCLIA [id number] [address] [facility] Magnesium [Mass/Vol] 2.5 mg/dL High 1.7-2.3 [facility] Comment on above: Order Comment: Speci men Type: BLOOD SPECIMENOrdering Facility: [facility] Address: [address] [place] [address] Performed By: #### 1 9123-9, 2777-1, 42805-1 ####[facility]ATORYCLIA [id number] [address] [place] NURSING PROGon 07-21-2021 NURSING PROG Normal [facility] Phosphate SerPl-mCncon 07-21 Phosphate [Mass/Vol] 3.7 mg/dL Normal 2.7-4.8 [facility] Comment on above: Order Comment: Speci men Type: BLOOD SPECIMENOrdering Facility: [facility] Address: [address] [place] [address] Performed By: #### 1 9123-9, 2777-1, 74427-2 ####[facility]ATORYCLIA [id number] [address] [place] THERAPY NTon 07-21-2021 THERAPY NT Normal [facility] XR CHEST 1V FRONTALon 2021 XR CHEST 1V FRONTAL Normal [facility] aPTT PPPon 07-21-2021 aPTT Coag (PPP) [Time] 53.0 s High 23.0-32.4 [facility] Comment on above: Order Comment: Speci men Type: BLOOD SPECIMENOrdering Facility: [facility] Address: [address] [place] [address] Performed By: #### 1 4979-9 ####[facility]ATORYCLIA [id number] [address] [place] ALLIED HEALTHon 07-20-2021 ALLIED HEALTH Normal [facility] Basic metabolic 2000 panelon 07-20-2021 Anion gap [Moles/Vol] 8 mmol/L Low 9-18 [facility] Comment on above: Order Comment: Speci men Type: BLOOD SPECIMENOrdering Facility: [facility] Address: [address] [place] [address] Performed By: #### 2 4321-2, , 2777- ####[facility]ATORYCLIA [id number] [place] [address] [place] Calcium [Mass/Vol] 9.7 mg/dL Normal 8.5-10.2 [facility] Comment on above: Order Comment: Speci men Type: BLOOD SPECIMENOrdering Facility: [facility] Address: [address] [place] [address] Performed By: #### 2 4321-2, 54791-2, 2777- ####[facility]ORATORYCLIA [id number] [place] [address] [place] Chloride [Moles/Vol] 104 mmol/L Normal 97-105 [facility] Comment on above: Order Comment: Speci men Type: BLOOD SPECIMENOrdering Facility: [facility] Address: [address] [place] [address] Performed By: #### 2 4321-2, , 2776-05 ####[facility]ATORYCLIA [id number] [place] [address] [place] CO2 [Moles/Vol] 34 mmol/L High 22-30 [facility] Comment on above: Order Comment: Speci men Type: BLOOD SPECIMENOrdering Facility: [facility] Address: [address] [place] [address] Performed By: #### 2 4321-2, , 2776-05 ####[facility]ATORYCLIA [id number] [address] STATES OF [facility] Creatinine [Mass/Vol] 0.76 mg/dL Normal 0.73-1.22 [facility] Comment on above: Order Comment: Speci men Type: BLOOD SPECIMENOrdering Facility: [facility] Address: [address] [place] [address] Performed By: #### 2 432-2, , 2776-05 ####[facility]ENTERCLIA [id number] [address] STATES OF [facility] ESTIMATED GLOMERULAR FILTRATION RATE 97 mL/min/1.73m??? Normal >=60 [facility] Comment on above: Order Comment: Speci men Type: BLOOD SPECIMENOrdering Facility: [facility] Address: [address] [place] [address] Result Comment: Luzmaria mated Glomerular Filtration Rate [...] Performed By: #### 2 4321-2, , 2776-05 ####[facility]ATORYCLIA [id number] [address] [id number] [facility] [place] Glucose [Mass/Vol] 123 mg/dL High 74-99 [facility] Comment on above: Order Comment: Speci men Type: BLOOD SPECIMENOrdering Facility: [facility] Address: [address] [place], [place] [address] Result Comment: The [employer] (ADA) provides guidance for cutoff [...] Standards of Medical Care in Diabetes 2016, [employer]. Diabetes Care. 2016.39(Suppl 1). Performed By: #### 2 4321-2, , 2776-05 ####[facility]ATORYCLIA [id number] [place] [address] [place] Potassium [Moles/Vol] 4.4 mmol/L Normal 3.7-5.1 [facility] Comment on above: Order Comment: Shira feldman Type: BLOOD SPECIMENOrdering Facility: [facility] Address: [address] [place], [place] [address] Performed By: #### 2 4321-2, , 2776-05 ####[facility]ATORYCLIA [id number] [place] [address] [place] Sodium [Moles/Vol] 146 mmol/L High 136-144 [facility] Comment on above: Order Comment: Johni francia Type: BLOOD SPECIMENOrdering Facility: [facility] Address: [address] [place], [place] [address] Performed By: #### 2 4321-2, , 2776-05 ####[facility]ATORYCLIA [id number] [place] [address] [place] Urea nitrogen [Mass/Vol] 38 mg/dL High 9-24 [facility] Comment on above: Order Comment: Speci men Type: BLOOD SPECIMENOrdering Facility: [facility] Address: [address] [place] [address] Performed By: #### 2 4321-2, 56821-8, 2777-1 ####[facility]ATORYCLIA [id number] [address] [place] CASE MANAGEMon 07-20-2021 CASE MANAGEM Normal [facility] CBC W Auto Differential pane l (Bld)on 07-20-2021 Basophils (Bld) [#/Vol] 0.05 10*3/uL Normal <0.11 [facility] Comment on above: Order Comment: Speci men Type: BLOOD SPECIMENOrdering Facility: [facility] Address: [address] [place] [address] Performed By: #### 5 7021-8 ####[facility]ATORYCLIA [id number] [address] [place] Basophils/100 WBC (Bld) 0.5 % Normal [facility] Comment on above: Order Comment: Speci men Type: BLOOD SPECIMENOrdering Facility: [facility] Address: [address] [place] [address] Performed By: #### 5 7021-8 ####[facility]ATORYCLIA [id number] [address] [place] Differential cell count method Nom (Bld) Auto Normal [facility] Comment on above: Order Comment: Speci men Type: BLOOD SPECIMENOrdering Facility: [facility] Address: [address] [place] [address] Performed By: #### 5 7021-8 ####[facility]ATORYCLIA [id number] [place] [address] [place] Eosinophils (Bld) [#/Vol] 0.43 10*3/uL Normal <0.46 [facility] Comment on above: Order Comment: Speci men Type: BLOOD SPECIMENOrdering Facility: [facility] Address: [address] [place] [address] Performed By: #### 5 7021-8 ####[facility]ATORYCLIA [id number] [address] STATES [facility] Eosinophils/100 WBC (Bld) 4.1 % Normal [facility] Comment on above: Order Comment: Speci men Type: BLOOD SPECIMENOrdering Facility: [facility] Address: [address] [place] [address] Performed By: #### 5 7021-8 ####[facility]ATORYCLIA [id number] [address] Erythrocyte distribution width (RBC) [Ratio] 16.7 % High 11.5-15.0 [facility] Comment on above: Order Comment: Speci men Type: BLOOD SPECIMENOrdering Facility: [facility] Address: [address] [place] [address] Performed By: #### 5 7021-8 ####[facility]ATORYCLIA [id number] [address] Hematocrit (Bld) [Volume fraction] 33.0 % Low 39.0-51.0 [facility] Comment on above: Order Comment: Speci men Type: BLOOD SPECIMENOrdering Facility: [facility] Address: [address] [place] [address] Performed By: #### 5 7021-8 ####[facility]ATORYCLIA [id number] [address] [place] Hemoglobin (Bld) [Mass/Vol] 9.7 g/dL Low 13.0-17.0 [facility] Comment on above: Order Comment: Speci men Type: BLOOD SPECIMENOrdering Facility: [facility] Address: [address] [place] [address] Performed By: #### 5 7021-8 ####[facility]ORYCLIA [id number] [address] IMMATURE GRAN % 0.4 % Normal [facility] Comment on above: Order Comment: Speci men Type: BLOOD SPECIMENOrdering Facility: [facility] Address: [address] [place] [address] Performed By: #### 5 7021-8 ####[facility]ATORYCLIA [id number] [address] IMMATURE GRAN ABS 0.04 k/uL Normal <0.10 [facility] Comment on above: Order Comment: Speci men Type: BLOOD SPECIMENOrdering Facility: [facility] Address: [address] [place] [address] Performed By: #### 5 7021-8 ####[facility]ATORYCLIA [id number] [address] Lymphocytes (Bld) [#/Vol] 1.99 10*3/uL Normal 1.00-4.00 [facility] Comment on above: Order Comment: Speci men Type: BLOOD SPECIMENOrdering Facility: [facility] Address: [address] [place] [address] Performed By: #### 5 7021-8 ####[facility]ATORYCLIA [id number] [address] Lymphocytes/100 WBC (Bld) 18.8 % Normal [facility] Comment on above: Order Comment: Speci men Type: BLOOD SPECIMENOrdering Facility: [facility] Address: [address] [place] [address] Performed By: #### 5 7021-8 ####[facility]ATORYCLIA [id number] [address] MCH (RBC) [Entitic mass] 27.8 pg Normal 26.0-34.0 [facility] Comment on above: Order Comment: Speci men Type: BLOOD SPECIMENOrdering Facility: [facility] Address: [address] [place] [address] Performed By: #### 5 7021-8 ####[facility]ATORYCLIA [id number] [address] MCHC (RBC) [Mass/Vol] 29.4 g/dL Low 30.5-36.0 [facility] Comment on above: Order Comment: Speci men Type: BLOOD SPECIMENOrdering Facility: [facility] Address: [address] [place] [address] Performed By: #### 5 7021-8 ####[facility]ATORYCLIA [id number] [address] [place] MCV (RBC) [Entitic vol] 94.6 fL Normal 80.0-100.0 [facility] Comment on above: Order Comment: Speci men Type: BLOOD SPECIMENOrdering Facility: [facility] Address: [address] [place] [address] Performed By: #### 5 7021-8 ####[facility]ATORYCLIA [id number] [address] [place] Monocytes (Bld) [#/Vol] 0.82 10*3/uL Normal <0.87 [facility] Comment on above: Order Comment: Speci men Type: BLOOD SPECIMENOrdering Facility: [facility] Address: [address] [place] [address] Performed By: #### 5 7021-8 ####[facility]ORYCLIA [id number] [address] Monocytes/100 WBC (Bld) 7.8 % Normal [facility] Comment on above: Order Comment: Speci men Type: BLOOD SPECIMENOrdering Facility: [facility] Address: [address] [place] [address] Performed By: #### 5 7021-8 ####[facility]ATORYCLIA [id number] [address] [place] Neutrophils (Bld) [#/Vol] 7.23 10*3/uL Normal 1.45-7.50 [facility] Comment on above: Order Comment: Speci men Type: BLOOD SPECIMENOrdering Facility: [facility] Address: [address] [place] [address] Performed By: #### 5 7021-8 ####[facility]ATORYCLIA [id number] [address] [place] Neutrophils/100 WBC (Bld) 68.4 % Normal [facility] Comment on above: Order Comment: Speci men Type: BLOOD SPECIMENOrdering Facility: [facility] Address: [address] [place] [address] Performed By: #### 5 7021-8 ####[facility]ATORYCLIA [id number] [address] [place] Nucleated RBC (Bld) [#/Vol] 10*3/uL Normal <0.01 [facility] Comment on above: Order Comment: Speci men Type: BLOOD SPECIMENOrdering Facility: [facility] Address: [address] [place] [address] Performed By: #### 5 7021-8 ####[facility]ORYCLIA [id number] [address] Nucleated RBC/100 WBC (Bld) [Ratio] 0.0 /100 WBC Normal [facility] Comment on above: Order Comment: Speci men Type: BLOOD SPECIMENOrdering Facility: [facility] Address: [address] [place] [address] Performed By: #### 5 7021-8 ####[facility]ATORYCLIA [id number] [address] [place] Platelet mean volume (Bld) [Entitic vol] 10.5 fL Normal 9.0-12.7 [facility] Comment on above: Order Comment: Speci men Type: BLOOD SPECIMENOrdering Facility: [facility] Address: [address] [place] [address] Performed By: #### 5 7021-8 ####[facility]ATORYCLIA [id number] [address] [place] Platelets (Bld) [#/Vol] 400 10*3/uL Normal 150-400 [facility] Comment on above: Order Comment: Speci men Type: BLOOD SPECIMENOrdering Facility: [facility] Address: [address] [place] [address] Performed By: #### 5 7021-8 ####[facility]ATORYCLIA [id number] [address] OF [facility] RBC (Bld) [#/Vol] 3.49 10*6/uL Low 4.20-6.00 [facility] Comment on above: Order Comment: Speci men Type: BLOOD SPECIMENOrdering Facility: [facility] Address: [address] [place] [address] Performed By: #### 5 7021-8 ####[facility]ATORYCLIA [id number] [address] WBC (Bld) [#/Vol] 10.56 10*3/uL Normal 3.70-11.00 [facility] Comment on above: Order Comment: Speci men Type: BLOOD SPECIMENOrdering Facility: [facility] Address: [address] [place] [address] Performed By: #### 5 7021-8 ####[facility]ATORYCLIA [id number] [address] CONSULT PROGon 07-20-2021 CONSULT PROG Normal [facility] CT BRAIN WO IVCONon 07-21-[address] BRAIN WO IVCON Normal [facility] Magnesium SerPl-ncon 07-20 Magnesium [Mass/Vol] 2.4 mg/dL High 1.7-2.3 [facility] Comment on above: Order Comment: Speci men Type: BLOOD SPECIMENOrdering Facility: [facility] Address: [address] [place] [address] Performed By: #### 2 4321-2, 27824-1, 2777-1 ####[facility]ORYCLIA [id number] [address] [place] NUTRITIONon 07-20-2021 NUTRITION Normal [facility] Phosphate SerPl-mCncon 07-20 Phosphate [Mass/Vol] 4.1 mg/dL Normal 2.7-4.8 [facility] Comment on above: Order Comment: Speci men Type: BLOOD SPECIMENOrdering Facility: [facility] Address: [address] [place] [address] Performed By: #### 2 4321-2, 30123-0, 2777-1 ####[facility]ATORYCLIA [id number] [place] [address] [place] aPTT PPPon 07-20-2021 aPTT Coag (PPP) [Time] 53.6 s High 23.0-32.4 [facility] Comment on above: Order Comment: Speci men Type: BLOOD SPECIMENOrdering Facility: [facility] Address: [address] [place] [address] Performed By: #### 1 4979-9 ####[facility]ATORYCLIA [id number] [place] [address] [place] Bacteria CSF Culton 07-20-19 22 Bacteria identified Cx Nom (CSF) CULTURE, CSF: No growth 14 days GRAM STAIN: No organisms seen No Polymorphonuclear Leukocytes Rare Mononuclear cells Gram stain performed on cytospun specimen. Normal [facility] Comment on above: Performed By: #### 6 06-4 ####[facility]ATORYCLIA [id number] [place] [address] [place] CONSULT PROGon 07-19-2021 CONSULT PROG Normal [facility] CSF MANUAL DIFFon 07-19-2021 DIF TTL, CSF 100 cells counted Normal [facility] Comment on above: Order Comment: Speci men Type: CEREBROSPINAL FLUIDOrdering Facility: [facility] Address: [address] [place] [address] Performed By: #### L PO5621, 60089-8, [id number] ####[facility]ORATORYCLIA [id number] [place] [address] [place] EOSIN%, CSF 1 % Normal [facility] Comment on above: Order Comment: Speci men Type: CEREBROSPINAL FLUIDOrdering Facility: [facility] Address: [address] [place] [address] Performed By: #### L [id number], [id number], [id number] ####[facility]ORATORYCLIA [id number] [place] [address] [place] LYMPH%, CSF 67 % Normal 50-90 [facility] Comment on above: Order Comment: Speci men Type: CEREBROSPINAL FLUIDOrdering Facility: [facility] Address: [address] [place] [address] Performed By: #### L [id number], 30354-0, [id number] ####[facility]ATORYCLIA [id number] [place] [address] [place] MACRO%, CSF 1 % High <1 [facility] Comment on above: Order Comment: Speci men Type: CEREBROSPINAL FLUIDOrdering Facility: [facility] Address: [address] [place] [address] Performed By: #### L [id number], 71941-2, [id number] ####[facility]ATORYCLIA [id number] [place] [address] [place] MONO%, CSF 18 % Normal 10-50 [facility] Comment on above: Order Comment: Speci men Type: CEREBROSPINAL FLUIDOrdering Facility: [facility] Address: [address] [place] [address] Performed By: #### L [id number], 29728-8, [id number] ####[facility]ATORYCLIA [id number] [place] [address] [place] NEUT%, CSF 11 % High 0-3 [facility] Comment on above: Order Comment: Speci men Type: CEREBROSPINAL FLUIDOrdering Facility: [facility] Address: [address] [place] [address] Performed By: #### L [id number], 15473-3, [id number] ####[facility]ATORYCLIA [id number] [address] [place] OTHER CL%, CSF 2 % Normal [facility] Comment on above: Order Comment: Speci men Type: CEREBROSPINAL FLUIDOrdering Facility: [facility] Address: [address] [place] [address] Result Comment: Path review to follow. Performed By: #### L [id number], 46700-4, [id number] ####[facility] LABORATORYCLIA [id number] [address] CSF PATHOLOGIST INTERP (LAB REFLEX ORDER-NO BILL)on 07-19-2021 CSF STAFF REVIEW Normal [facility] Comment on above: Order Comment: Speci men Type: CEREBROSPINAL FLUIDOrdering Facility: [facility] Address: [address] [place] [address] Performed By: #### L [id number], 86643-0, [id number] ####[facility]ORATORYCLIA [id number] [address] Pathologist name Reviewed by Wing Cummings MD [facility] Comment on above: Order Comment: Speci men Type: CEREBROSPINAL FLUIDOrdering Facility: [facility] Address: [address] [place] [address] Performed By: #### L [id number], 58338-5, [id number] ####[facility] LABORATORYCLIA [id number] [address] Cell count panel (CSF)on Clarity (CSF) Clear Normal Clear [facility] Comment on above: Order Comment: Speci men Type: CEREBROSPINAL FLUIDOrdering Facility: [facility] Address: [address] [place] [address] Performed By: #### L [id number], 98240-5, [id number] ####[facility]ORATORYCLIA [id number] [address] Clarity (Unsp spec) Not Indicated Normal Clear [facility] Comment on above: Order Comment: Speci men Type: CEREBROSPINAL FLUIDOrdering Facility: [facility] Address: [address] [place] [address] Performed By: #### L [id number], 79031-8, [id number] ####[facility]ORATORYCLIA [id number] [address] Color (CSF) Colorless Normal Colorless [facility] Comment on above: Order Comment: Speci men Type: CEREBROSPINAL FLUIDOrdering Facility: [facility] Address: [address] [address] Performed By: #### L [id number], 96845-9, [id number] ####[facility]ATORYCLIA [id number] [address] Color (Spun CSF) Not Indicated Normal Colorless [facility] Comment on above: Order Comment: Speci men Type: CEREBROSPINAL FLUIDOrdering Facility: [facility] Address: [address] [place] [place] [address] Performed By: #### L [id number], 15959-5, [id number] ####[facility]ORATORYCLIA [id number] [address] CSF [employer] Normal [facility] Comment on above: Order Comment: Speci men Type: CEREBROSPINAL FLUIDOrdering Facility: [facility] Address: [address] [address] Performed By: #### L [id number], 63366-3, [id number] ####[facility]ORYCLIA [id number] [address] [place] RBC Manual cnt (CSF) [#/Vol] 0 cells/uL Normal 0-5 [facility] Comment on above: Order Comment: Speci men Type: CEREBROSPINAL FLUIDOrdering Facility: [facility] Address: [address] [address] Performed By: #### L [id number], 96889-1, [id number] ####[facility]ORYCLIA [id number] [address] WBC Manual cnt (CSF) [#/Vol] 2 cells/uL Normal 0-5 [facility] Comment on above: Order Comment: Speci men Type: CEREBROSPINAL FLUIDOrdering Facility: [facility] Address: [address] [place] [address] Performed By: #### L [id number], 60857-9, [id number] ####[facility]ORATORYCLIA [id number] [address] [place] Glucose CSF-mCncon Glucose (CSF) [Mass/Vol] 69 mg/dL Normal 40-70 [facility] Comment on above: Order Comment: Speci men Type: CEREBROSPINAL FLUIDOrdering Facility: [facility] Address: [address] [place] [address] Result Comment: Lumb ar CSF glucose values of healthy patients are approximately 60% of the plasma values and must always be compared with a concurrently measured plasma value for adequate clinical interpretation.References: 1. Glucose HK (GLUC3) [package insert V 12.0 [place]]. [employer], [place], [place]. September 2015. 2. Michelle Moore, Loki HGarfield (2015). Chapter 7: Glucose and Lactate. Marianela Alcocer al.(eds.), Cerebrospinal Fluid in Clinical Neurology. Pepin: [employer]. Performed By: #### 2 342-4, 2880-3 ####[facility]ORATORYCLIA [id number] [address] [place] NURSING PROGon 07-19-2021 NURSING PROG Normal [facility] NURSING PROG Normal [facility] Prot CSF-mCncon 07-19-2021 Protein (CSF) [Mass/Vol] 51 mg/dL High 15-45 [facility] Comment on above: Order Comment: Speci men Type: CEREBROSPINAL FLUIDOrdering Facility: [facility] Address: [address] [place] [place] [address] Performed By: #### 2 342-4, 2880-3 ####[facility]ORATORYCLIA [id number] [address] [place] THERAPY NTon 07-19-2021 THERAPY NT Normal [facility] Urinalysis complete panel (U )on 07-19-2021 Bilirubin Ql (U) Negative Normal Negative [facility] Comment on above: Order Comment: Speci men Type: URINE SPECIMENOrdering Facility: [facility] Address: [address] [place] [address] Performed By: #### 2 4356-8 ####[facility]ORATORYCLIA [id number] [address] Clarity (Unsp spec) Clear Normal Clear [facility] Comment on above: Order Comment: Speci men Type: URINE SPECIMENOrdering Facility: [facility] Address: [address] [place] [address] Performed By: #### 2 4356-8 ####[facility]ORATORYCLIA [id number] [address] Color (U) Colorless Normal yellow [facility] Comment on above: Order Comment: Speci men Type: URINE SPECIMENOrdering Facility: [facility] Address: [address] [place] [address] Performed By: #### 2 4356-8 ####[facility]ORATORYCLIA [id number] [address] Glucose Test strip (U) [Mass/Vol] Negative Normal Negative [facility] Comment on above: Order Comment: Speci men Type: URINE SPECIMENOrdering Facility: [facility] Address: [address] [place] [address] Performed By: #### 2 4356-8 ####[facility]ORATORYCLIA [id number] [address] Hemoglobin Ql (U) Trace Abnormal Negative [facility] Comment on above: Order Comment: Speci men Type: URINE SPECIMENOrdering Facility: [facility] Address: [address] [place] [address] Performed By: #### 2 4356-8 ####[facility]ORATORYCLIA [id number] [address] Hyaline casts (Urine sed) [#/Area] 1-3 /LPF Abnormal 0 /LPF [facility] Comment on above: Order Comment: Speci men Type: URINE SPECIMENOrdering Facility: [facility] Address: [address] [place] [address] Performed By: #### 2 4356-8 ####[facility]ORATORYCLIA [id number] [address] Ketones Ql (U) Negative Normal Negative [facility] Comment on above: Order Comment: Speci men Type: URINE SPECIMENOrdering Facility: [facility] Address: [address] [place] [address] Performed By: #### 2 4356-8 ####[facility]ORATORYCLIA [id number] [address] Leukocyte esterase Test strip Ql (U) Negative Normal Negative [facility] Comment on above: Order Comment: Speci men Type: URINE SPECIMENOrdering Facility: [facility] Address: [address] [place] [address] Performed By: #### 2 4356-8 ####[facility]ORATORYCLIA [id number] [address] [place] Nitrite Ql (U) Negative Normal Negative [facility] Comment on above: Order Comment: Speci men Type: URINE SPECIMENOrdering Facility: [facility] Address: [address] [place] [address] Performed By: #### 2 4356-8 ####[facility]ATORYCLIA [id number] [address] [place] pH (U) 7.0 [pH] Normal 5.0-8.0 [facility] Comment on above: Order Comment: Speci men Type: URINE SPECIMENOrdering Facility: [facility] Address: [address] [place] [address] Performed By: #### 2 4356-8 ####[facility]ORYCLIA [id number] [address] [place] Protein (U) [Mass/Vol] Negative Normal Negative [facility] Comment on above: Order Comment: Speci men Type: URINE SPECIMENOrdering Facility: [facility] Address: [address] [place] [address] Performed By: #### 2 4356-8 ####[facility]ATORYCLIA [id number] [address] RBC LM.HPF (Urine sed) [#/Area] 6-10 /HPF Abnormal 0-3 /HPF [facility] Comment on above: Order Comment: Speci men Type: URINE SPECIMENOrdering Facility: [facility] Address: [address] [place] [address] Performed By: #### 2 4356-8 ####[facility]ORATORYCLIA [id number] [address] Specific gravity (U) [Rel density] 1.008 Normal 1.005-1.030 [facility] Comment on above: Order Comment: Speci men Type: URINE SPECIMENOrdering Facility: [facility] Address: [address] [place] [address] Performed By: #### 2 4356-8 ####[facility]ATORYCLIA [id number] [address] Urobilinogen Ql (U) Normal Normal Negative [facility] Comment on above: Order Comment: Speci men Type: URINE SPECIMENOrdering Facility: [facility] Address: [address] [place] [address] Performed By: #### 2 4356-8 ####[facility]ATORYCLIA [id number] [address] WBC LM.HPF (Urine sed) [#/Area] 0-5 /HPF Normal 0-5 /HPF [facility] Comment on above: Order Comment: Speci men Type: URINE SPECIMENOrdering Facility: [facility] Address: [address] [place] [address] Performed By: #### 2 4356-8 ####[facility]ORATORYCLIA [id number] [address] Vancomycin random [Mass/Vol] on 07-19-2021 Vancomycin [Mass/Vol] 13.9 ug/mL Normal 10.0-20.0 [facility] Comment on above: Order Comment: Speci men Type: BLOOD SPECIMENOrdering Facility: [facility] Address: [address] [place] [address] Result Comment: Refe rence ranges and high/low indicator flags are provided as general guidelines only. The treating physician must determine appropriate target levels/dosing based on the specific clinical situation. Performed By: #### 4 091-5 ####[facility]ORATORYCLIA [id number] [place] [address] [place] aPTT PPPon 07-19-2021 aPTT Coag (PPP) [Time] 53.9 s High 23.0-32.4 [facility] Comment on above: Order Comment: Speci men Type: BLOOD SPECIMENOrdering Facility: [facility] Address: [address] [place] [address] Performed By: #### 1 4979-9 ####[facility]ATORYCLIA [id number] [place] [address] [place] Basic metabolic 2000 panelon 07-18-2021 Anion gap [Moles/Vol] 6 mmol/L Low 9-18 [facility] Comment on above: Order Comment: Speci men Type: BLOOD SPECIMENOrdering Facility: [facility] Address: [address] [place] [address] Performed By: #### 2 4321-2, , 2776-05 ####[facility]ORATORYCLIA [id number] [place] [address] [place] Calcium [Mass/Vol] 9.4 mg/dL Normal 8.5-10.2 [facility] Comment on above: Order Comment: Speci men Type: BLOOD SPECIMENOrdering Facility: [facility] Address: [address] [place] [address] Performed By: #### 2 4321-2, 65532-5, 2777- ####[facility]ORATORYCLIA [id number] [address] STATES OF [facility] Chloride [Moles/Vol] 103 mmol/L Normal 97-105 [facility] Comment on above: Order Comment: Speci men Type: BLOOD SPECIMENOrdering Facility: [facility] Address: [address] [place] [address] Performed By: #### 2 4321-2, 51186-8, 2776-05 ####[facility]ORATORYCLIA [id number] [address] OF [facility] CO2 [Moles/Vol] 34 mmol/L High 22-30 [facility] Comment on above: Order Comment: Speci men Type: BLOOD SPECIMENOrdering Facility: [facility] Address: [address] [place] [address] Performed By: #### 2 4321-2, , 2776-05 ####[facility]ATORYCLIA [id number] [address] Creatinine [Mass/Vol] 0.75 mg/dL Normal 0.73-1.22 [facility] Comment on above: Order Comment: Speci men Type: BLOOD SPECIMENOrdering Facility: [facility] Address: [address] [place] [address] Performed By: #### 2 4321-2, , 2776-05 ####[facility]ORATORYCLIA [id number] [address] ESTIMATED GLOMERULAR FILTRATION RATE 98 mL/min/1.73m??? Normal >=60 [facility] Comment on above: Order Comment: Speci men Type: BLOOD SPECIMENOrdering Facility: [facility] Address: [address] [place] [address] Result Comment: Luzmaria mated Glomerular Filtration Rate [...] Performed By: #### 2 4321-2, , 2776-05 ####[facility]ORATORYCLIA [id number] [place] [address] [place] Glucose [Mass/Vol] 125 mg/dL High 74-99 [facility] Comment on above: Order Comment: Speci men Type: BLOOD SPECIMENOrdering Facility: [facility] Address: [address] [id number] Result Comment: The [place] [employer] (ADA) provides guidance for cutoff [...] Standards of Medical Care in Diabetes 2016, [place] [employer]. Diabetes Care. 2016.39(Suppl 1). Performed By: #### 2 4321-2, , 2776-05 ####[facility] HOSPITALIA [id number] [place] [address] [place] Potassium [Moles/Vol] 4.4 mmol/L Normal 3.7-5.1 [facility] Comment on above: Order Comment: Speci men Type: BLOOD SPECIMENOrdering Facility: [facility] Address: [address] [id number] Performed By: #### 2 4321-2, , 2776-05 ####[facility] LABORATORYIA [id number] [place] [address] [place] Sodium [Moles/Vol] 143 mmol/L Normal 136-144 [facility] Comment on above: Order Comment: Johni men Type: BLOOD SPECIMENOrdering Facility: [facility] Address: [address] [id number] Performed By: #### 2 4321-2, 71624-7, 2777-1 ####[facility]ATORYCLIA [id number] [address] [place] Urea nitrogen [Mass/Vol] 33 mg/dL High 9-24 [facility] Comment on above: Order Comment: Speci men Type: BLOOD SPECIMENOrdering Facility: [facility] Address: [address] [place] [address] Performed By: #### 2 4321-2, , 277- ####[facility]ATORYCLIA [id number] [address] [place] CASE MANAGEMon 07-18-2021 CASE MANAGEM Normal [facility] CBC W Auto Differential pane l (Bld)on 07-18-2021 Basophils (Bld) [#/Vol] 0.05 10*3/uL Normal <0.11 [facility] Comment on above: Order Comment: Speci men Type: BLOOD SPECIMENOrdering Facility: [facility] Address: [address] [place] [address] Performed By: #### 5 7021-8 ####[facility]ATORYCLIA [id number] [address] [place] Basophils/100 WBC (Bld) 0.5 % Normal [facility] Comment on above: Order Comment: Speci men Type: BLOOD SPECIMENOrdering Facility: [facility] Address: [address] [place] [address] Performed By: #### 5 7021-8 ####[facility]ATORYCLIA [id number] [address] [place] Differential cell count method Nom (Bld) Auto Normal [facility] Comment on above: Order Comment: Speci men Type: BLOOD SPECIMENOrdering Facility: [facility] Address: [address] [place] [address] Performed By: #### 5 7021-8 ####[facility]ATORYCLIA [id number] [address] [place] Eosinophils (Bld) [#/Vol] 0.44 10*3/uL Normal <0.46 [facility] Comment on above: Order Comment: Speci men Type: BLOOD SPECIMENOrdering Facility: [facility] Address: [address] [place] [place] [address] Performed By: #### 5 7021-8 ####[facility]ATORYCLIA [id number] [address] [place] Eosinophils/100 WBC (Bld) 4.3 % Normal [facility] Comment on above: Order Comment: Speci men Type: BLOOD SPECIMENOrdering Facility: [facility] Address: [address] [place] [address] Performed By: #### 5 7021-8 ####[facility]ATORYCLIA [id number] [address] STATES [facility] Erythrocyte distribution width (RBC) [Ratio] 16.6 % High 11.5-15.0 [facility] Comment on above: Order Comment: Speci men Type: BLOOD SPECIMENOrdering Facility: [facility] Address: [address] [place] [address] Performed By: #### 5 7021-8 ####[facility]ORATORYCLIA [id number] [address] [place] Hematocrit (Bld) [Volume fraction] 32.2 % Low 39.0-51.0 [facility] Comment on above: Order Comment: Speci men Type: BLOOD SPECIMENOrdering Facility: [facility] Address: [address] [place] [address] Performed By: #### 5 7021-8 ####[facility]ORATORYCLIA [id number] [address] [place] Hemoglobin (Bld) [Mass/Vol] 9.5 g/dL Low 13.0-17.0 [facility] Comment on above: Order Comment: Speci men Type: BLOOD SPECIMENOrdering Facility: [facility] Address: [address] [place] [address] Performed By: #### 5 7021-8 ####[facility]ATORYCLIA [id number] [address] IMMATURE GRAN % 0.4 % Normal [facility] Comment on above: Order Comment: Speci men Type: BLOOD SPECIMENOrdering Facility: [facility] Address: [address] [place] [address] Performed By: #### 5 7021-8 ####[facility]ATORYCLIA [id number] [address] IMMATURE GRAN ABS 0.04 k/uL Normal <0.10 [facility] Comment on above: Order Comment: Speci men Type: BLOOD SPECIMENOrdering Facility: [facility] Address: [address] [place] [address] Performed By: #### 5 7021-8 ####[facility]ORATORYCLIA [id number] [address] STATES OF [facility] Lymphocytes (Bld) [#/Vol] 1.71 10*3/uL Normal 1.00-4.00 [facility] Comment on above: Order Comment: Speci men Type: BLOOD SPECIMENOrdering Facility: [facility] Address: [address] [place] [address] Performed By: #### 5 7021-8 ####[facility]ORATORYCLIA [id number] [address] Lymphocytes/100 WBC (Bld) 16.9 % Normal [facility] Comment on above: Order Comment: Speci men Type: BLOOD SPECIMENOrdering Facility: [facility] Address: [address] [place] [address] Performed By: #### 5 7021-8 ####[facility]ORATORYCLIA [id number] [address] MCH (RBC) [Entitic mass] 27.9 pg Normal 26.0-34.0 [facility] Comment on above: Order Comment: Speci men Type: BLOOD SPECIMENOrdering Facility: [facility] Address: [address] [place] [address] Performed By: #### 5 7021-8 ####[facility]ORATORYCLIA [id number] [address] MCHC (RBC) [Mass/Vol] 29.5 g/dL Low 30.5-36.0 [facility] Comment on above: Order Comment: Speci men Type: BLOOD SPECIMENOrdering Facility: [facility] Address: [address] [place] [address] Performed By: #### 5 7021-8 ####[facility]ORATORYCLIA [id number] [address] MCV (RBC) [Entitic vol] 94.7 fL Normal 80.0-100.0 [facility] Comment on above: Order Comment: Speci men Type: BLOOD SPECIMENOrdering Facility: [facility] Address: [address] [place] [address] Performed By: #### 5 7021-8 ####[facility]ORATORYCLIA [id number] [address] Monocytes (Bld) [#/Vol] 0.69 10*3/uL Normal <0.87 [facility] Comment on above: Order Comment: Speci men Type: BLOOD SPECIMENOrdering Facility: [facility] Address: [address] [place] [address] Performed By: #### 5 7021-8 ####[facility]ORATORYCLIA [id number] [address] Monocytes/100 WBC (Bld) 6.8 % Normal [facility] Comment on above: Order Comment: Speci men Type: BLOOD SPECIMENOrdering Facility: [facility] Address: [address] [place] [address] Performed By: #### 5 7021-8 ####[facility]ATORYCLIA [id number] [address] [place] Neutrophils (Bld) [#/Vol] 7.19 10*3/uL Normal 1.45-7.50 [facility] Comment on above: Order Comment: Speci men Type: BLOOD SPECIMENOrdering Facility: [facility] Address: [address] [place] [address] Performed By: #### 5 7021-8 ####[facility]ATORYCLIA [id number] [address] Neutrophils/100 WBC (Bld) 71.1 % Normal [facility] Comment on above: Order Comment: Speci men Type: BLOOD SPECIMENOrdering Facility: [facility] Address: [address] [place] [address] Performed By: #### 5 7021-8 ####[facility]ATORYCLIA [id number] [address] [place] Nucleated RBC (Bld) [#/Vol] 10*3/uL Normal <0.01 [facility] Comment on above: Order Comment: Speci men Type: BLOOD SPECIMENOrdering Facility: [facility] Address: [address] [place] [address] Performed By: #### 5 7021-8 ####[facility]ORATORYCLIA [id number] [address] Nucleated RBC/100 WBC (Bld) [Ratio] 0.0 /100 WBC Normal [facility] Comment on above: Order Comment: Speci men Type: BLOOD SPECIMENOrdering Facility: [facility] Address: [address] [place] [address] Performed By: #### 5 7021-8 ####[facility]ATORYCLIA [id number] [address] Platelet mean volume (Bld) [Entitic vol] 10.3 fL Normal 9.0-12.7 [facility] Comment on above: Order Comment: Speci men Type: BLOOD SPECIMENOrdering Facility: [facility] Address: [address] [place] [address] Performed By: #### 5 7021-8 ####[facility]ATORYCLIA [id number] [address] [place] Platelets (Bld) [#/Vol] 403 10*3/uL High 150-400 [facility] Comment on above: Order Comment: Speci men Type: BLOOD SPECIMENOrdering Facility: [facility] Address: [address] [place] [address] Performed By: #### 5 7021-8 ####[facility] LABORATORYCLIA [id number] [address] STATES OF [facility] RBC (Bld) [#/Vol] 3.40 10*6/uL Low 4.20-6.00 [facility] Comment on above: Order Comment: Speci men Type: BLOOD SPECIMENOrdering Facility: [facility] Address: [address] [place] [address] Performed By: #### 5 7021-8 ####[facility]ATORYCLIA [id number] [address] WBC (Bld) [#/Vol] 10.12 10*3/uL Normal 3.70-11.00 [facility] Comment on above: Order Comment: Speci men Type: BLOOD SPECIMENOrdering Facility: [facility] Address: [address] [place] [address] Performed By: #### 5 7021-8 ####[facility]ATORYCLIA [id number] [address] [place] Magnesium SerPl-mCncon 07-18 Magnesium [Mass/Vol] 2.4 mg/dL High 1.7-2.3 [facility] Comment on above: Order Comment: Speci men Type: BLOOD SPECIMENOrdering Facility: [facility] Address: [address] [place] [address] Performed By: #### 2 4321-2, 70191-3, 2777-1 ####[facility]ATORYCLIA [id number] [address] NURSING PROGon 07-18-2021 NURSING PROG Normal [facility] NURSING PROG Normal [facility] Phosphate SerPl-mCncon 07-18 Phosphate [Mass/Vol] 3.9 mg/dL Normal 2.7-4.8 [facility] Comment on above: Order Comment: Speci men Type: BLOOD SPECIMENOrdering Facility: [facility] Address: [address] [place] [address] Performed By: #### 2 4321-2, 53181-0, 2777-1 ####[facility]ATORYCLIA [id number] [address] THERAPY NTon 07-18-2021 THERAPY NT Normal [facility] aPTT PPPon 07-18-2021 aPTT Coag (PPP) [Time] 52.3 s High 23.0-32.4 [facility] Comment on above: Order Comment: Speci men Type: BLOOD SPECIMENOrdering Facility: [facility] Address: [address] [place] [address] Performed By: #### 1 4979-9 ####[facility]ATORYCLIA [id number] [address] CBC W Auto Differential pane l (Bld)on 07-17-2021 Basophils (Bld) [#/Vol] 0.05 10*3/uL Normal <0.11 [facility] Comment on above: Order Comment: Speci men Type: BLOOD SPECIMENOrdering Facility: [facility] Address: [address] [place] [address] Performed By: #### 5 7021-8 ####[facility]ATORYCLIA [id number] [address] Basophils/100 WBC (Bld) 0.5 % Normal [facility] Comment on above: Order Comment: Speci men Type: BLOOD SPECIMENOrdering Facility: [facility] Address: [address] [place] [address] Performed By: #### 5 7021-8 ####[facility]ATORYCLIA [id number] [address] Differential cell count method Nom (Bld) Auto Normal [facility] Comment on above: Order Comment: Speci men Type: BLOOD SPECIMENOrdering Facility: [facility] Address: [address] [place] [address] Performed By: #### 5 7021-8 ####[facility]ATORYCLIA [id number] [address] [place] Eosinophils (Bld) [#/Vol] 0.32 10*3/uL Normal <0.46 [facility] Comment on above: Order Comment: Speci men Type: BLOOD SPECIMENOrdering Facility: [facility] Address: [address] [place] [address] Performed By: #### 5 7021-8 ####[facility]ATORYCLIA [id number] [address] Eosinophils/100 WBC (Bld) 3.4 % Normal [facility] Comment on above: Order Comment: Speci men Type: BLOOD SPECIMENOrdering Facility: [facility] Address: [address] [place] [address] Performed By: #### 5 7021-8 ####[facility]ATORYCLIA [id number] [address] Erythrocyte distribution width (RBC) [Ratio] 16.6 % High 11.5-15.0 [facility] Comment on above: Order Comment: Speci men Type: BLOOD SPECIMENOrdering Facility: [facility] Address: [address] [place] [address] Performed By: #### 5 7021-8 ####[facility]ATORYCLIA [id number] [address] Hematocrit (Bld) [Volume fraction] 30.7 % Low 39.0-51.0 [facility] Comment on above: Order Comment: Speci men Type: BLOOD SPECIMENOrdering Facility: [facility] Address: [address] [place] [address] Performed By: #### 5 7021-8 ####[facility]ATORYCLIA [id number] [address] [place] Hemoglobin (Bld) [Mass/Vol] 9.0 g/dL Low 13.0-17.0 [facility] Comment on above: Order Comment: Speci men Type: BLOOD SPECIMENOrdering Facility: [facility] Address: [address] [place] [address] Performed By: #### 5 7021-8 ####[facility]ATORYCLIA [id number] [address] IMMATURE GRAN % 0.6 % Normal [facility] Comment on above: Order Comment: Speci men Type: BLOOD SPECIMENOrdering Facility: [facility] Address: [address] [place] [address] Performed By: #### 5 7021-8 ####[facility]ATORYCLIA [id number] [address] IMMATURE GRAN ABS 0.06 k/uL Normal <0.10 [facility] Comment on above: Order Comment: Speci men Type: BLOOD SPECIMENOrdering Facility: [facility] Address: [address] [place] [address] Performed By: #### 5 7021-8 ####[facility]ATORYCLIA [id number] [address] [place] Lymphocytes (Bld) [#/Vol] 1.61 10*3/uL Normal 1.00-4.00 [facility] Comment on above: Order Comment: Speci men Type: BLOOD SPECIMENOrdering Facility: [facility] Address: [address] [place] [address] Performed By: #### 5 7021-8 ####[facility]ATORYCLIA [id number] [address] Lymphocytes/100 WBC (Bld) 17.3 % Normal [facility] Comment on above: Order Comment: Speci men Type: BLOOD SPECIMENOrdering Facility: [facility] Address: [address] [place] [address] Performed By: #### 5 7021-8 ####[facility]ATORYCLIA [id number] [address] MCH (RBC) [Entitic mass] 26.9 pg Normal 26.0-34.0 [facility] Comment on above: Order Comment: Speci men Type: BLOOD SPECIMENOrdering Facility: [facility] Address: [address] [place] [address] Performed By: #### 5 7021-8 ####[facility]ATORYCLIA [id number] [address] MCHC (RBC) [Mass/Vol] 29.3 g/dL Low 30.5-36.0 [facility] Comment on above: Order Comment: Speci men Type: BLOOD SPECIMENOrdering Facility: [facility] Address: [address] [place] [address] Performed By: #### 5 7021-8 ####[facility]ATORYCLIA [id number] [address] STATES [facility] MCV (RBC) [Entitic vol] 91.9 fL Normal 80.0-100.0 [facility] Comment on above: Order Comment: Speci men Type: BLOOD SPECIMENOrdering Facility: [facility] Address: [address] [place] [address] Performed By: #### 5 7021-8 ####[facility]ATORYCLIA [id number] [address] Monocytes (Bld) [#/Vol] 0.61 10*3/uL Normal <0.87 [facility] Comment on above: Order Comment: Speci men Type: BLOOD SPECIMENOrdering Facility: [facility] Address: [address] [place] [address] Performed By: #### 5 7021-8 ####[facility]ATORYCLIA [id number] [address] Monocytes/100 WBC (Bld) 6.6 % Normal [facility] Comment on above: Order Comment: Speci men Type: BLOOD SPECIMENOrdering Facility: [facility] Address: [address] [place] [address] Performed By: #### 5 7021-8 ####[facility]ORATORYCLIA [id number] [place] [address] [place] Neutrophils (Bld) [#/Vol] 6.64 10*3/uL Normal 1.45-7.50 [facility] Comment on above: Order Comment: Speci men Type: BLOOD SPECIMENOrdering Facility: [facility] Address: [address] [place] [address] Performed By: #### 5 7021-8 ####[facility]ATORYCLIA [id number] [address] [place] Neutrophils/100 WBC (Bld) 71.6 % Normal [facility] Comment on above: Order Comment: Speci men Type: BLOOD SPECIMENOrdering Facility: [facility] Address: [address] [place] [address] Performed By: #### 5 7021-8 ####[facility]ATORYCLIA [id number] [address] [place] Nucleated RBC (Bld) [#/Vol] 10*3/uL Normal <0.01 [facility] Comment on above: Order Comment: Speci men Type: BLOOD SPECIMENOrdering Facility: [facility] Address: [address] [place] [address] Performed By: #### 5 7021-8 ####[facility]ORATORYCLIA [id number] [address] [place] Nucleated RBC/100 WBC (Bld) [Ratio] 0.0 /100 WBC Normal [facility] Comment on above: Order Comment: Speci men Type: BLOOD SPECIMENOrdering Facility: [facility] Address: [address] [place] [address] Performed By: #### 5 7021-8 ####[facility]ATORYCLIA [id number] [place] [address] [place] Platelet mean volume (Bld) [Entitic vol] 10.1 fL Normal 9.0-12.7 [facility] Comment on above: Order Comment: Speci men Type: BLOOD SPECIMENOrdering Facility: [facility] Address: [address] [place] [address] Performed By: #### 5 7021-8 ####[facility]ATORYCLIA [id number] [place] [address] [place] Platelets (Bld) [#/Vol] 387 10*3/uL Normal 150-400 [facility] Comment on above: Order Comment: Speci men Type: BLOOD SPECIMENOrdering Facility: [facility] Address: [address] [place] [address] Performed By: #### 5 7021-8 ####[facility]ATORYCLIA [id number] [place] [address] [place] RBC (Bld) [#/Vol] 3.34 10*6/uL Low 4.20-6.00 [facility] Comment on above: Order Comment: Speci men Type: BLOOD SPECIMENOrdering Facility: [facility] Address: [address] [place] [address] Performed By: #### 5 7021-8 ####[facility]ATORYCLIA [id number] [place] [address] [place] WBC (Bld) [#/Vol] 9.29 10*3/uL Normal 3.70-11.00 [facility] Comment on above: Order Comment: Speci men Type: BLOOD SPECIMENOrdering Facility: [facility] Address: [address] [place] [address] Performed By: #### 5 7021-8 ####[facility]ATORYCLIA [id number] [address] [place] CONSULT PROGon 07-17-2021 CONSULT PROG Normal [facility] Magnesium SerPl-mCncon 07-17 Magnesium [Mass/Vol] 2.3 mg/dL Normal 1.7-2.3 [facility] Comment on above: Order Comment: Speci men Type: BLOOD SPECIMENOrdering Facility: [facility] Address: [address] [place] [address] Performed By: #### 2 777-1, 32813-9 ####[facility]ATORYCLIA [id number] [address] OF [facility] NURSING PROGon 07-17-2021 NURSING PROG Normal [facility] NURSING PROG Normal [facility] NURSING PROG Normal [facility] Phosphate SerPl-mCncon 07-17 Phosphate [Mass/Vol] 3.6 mg/dL Normal 2.7-4.8 [facility] Comment on above: Order Comment: Speci men Type: BLOOD SPECIMENOrdering Facility: [facility] Address: [address] [place] [address] Performed By: #### 2 777-1, ####[facility]ATORYCLIA [id number] [address] [place] aPTT PPPon 07-17-2021 aPTT Coag (PPP) [Time] 57.2 s High 23.0-32.4 [facility] Comment on above: Order Comment: Speci men Type: BLOOD SPECIMENOrdering Facility: [facility] Address: [address] [place] [address] Performed By: #### 1 4979-9 ####[facility]ATORYCLIA [id number] [place] [address] [place] Basic metabolic 2000 panelon 07-16-2021 Anion gap [Moles/Vol] 5 mmol/L Low 9-18 [facility] Comment on above: Order Comment: Speci men Type: BLOOD SPECIMENOrdering Facility: [facility] Address: [address] [place] [address] Performed By: #### 2 777-1, 09856-8, ####[facility]ORATORYCLIA [id number] [place] [address] [place] Calcium [Mass/Vol] 9.1 mg/dL Normal 8.5-10.2 [facility] Comment on above: Order Comment: Speci men Type: BLOOD SPECIMENOrdering Facility: [facility] Address: [address] [place] [address] Performed By: #### 2 777-1, 23404-8, ####[facility]ATORYCLIA [id number] [place] [address] [place] Chloride [Moles/Vol] 101 mmol/L Normal 97-105 [facility] Comment on above: Order Comment: Speci men Type: BLOOD SPECIMENOrdering Facility: [facility] Address: [address] [place] [address] Performed By: #### 2 777-1, , ####[facility]ATORYCLIA [id number] [address] [place] CO2 [Moles/Vol] 35 mmol/L High 22-30 [facility] Comment on above: Order Comment: Speci men Type: BLOOD SPECIMENOrdering Facility: [facility] Address: [address] [place] [address] Performed By: #### 2 777-1, , ####[facility]ATORYCLIA [id number] [place] [address] [place] Creatinine [Mass/Vol] 0.73 mg/dL Normal 0.73-1.22 [facility] Comment on above: Order Comment: Speci men Type: BLOOD SPECIMENOrdering Facility: [facility] Address: [address] [place] [address] Performed By: #### 2 777-1, 95717-3, ####[facility]ATORYCLIA [id number] [address] [place] ESTIMATED GLOMERULAR FILTRATION RATE 98 mL/min/1.73m??? Normal >=60 [facility] Comment on above: Order Comment: Shira feldman Type: BLOOD SPECIMENOrdering Facility: [facility] Address: [address] [place] [address] Result Comment: Luzmaria mated Glomerular Filtration Rate [...] actual GFR. Performed By: #### 2 777-1, 04593-1, ####[facility]ATORYCLIA [id number] [place] [address] [place] Glucose [Mass/Vol] 133 mg/dL High 74-99 [facility] Comment on above: Order Comment: Shira feldman Type: BLOOD SPECIMENOrdering Facility: [facility] Address: [address] [place] [address] Result Comment: The [employer] (ADA) provides guidance for cutoff [...] Standards of Medical Care in Diabetes 2016, [employer]. Diabetes Care. 2016.39(Suppl 1). Performed By: #### 2 777-1, 43558-2, 59129-6 ####[facility]ATORYCLIA [id number] [place] [address] [place] Potassium [Moles/Vol] 4.2 mmol/L Normal 3.7-5.1 [facility] Comment on above: Order Comment: Shira feldman Type: BLOOD SPECIMENOrdering Facility: [facility] Address: [address] [place] [address] Performed By: #### 2 777-1, 39858-3, 23886-7 ####[facility]ATORYCLIA [id number] [address] STATES [facility] Sodium [Moles/Vol] 141 mmol/L Normal 136-144 [facility] Comment on above: Order Comment: Speci men Type: BLOOD SPECIMENOrdering Facility: [facility] Address: [address] [place] [address] Performed By: #### 2 777-1, 40874-2, ####[facility]ATORYCLIA [id number] [address] STATES OF [facility] Urea nitrogen [Mass/Vol] 21 mg/dL Normal 9-24 [facility] Comment on above: Order Comment: Speci men Type: BLOOD SPECIMENOrdering Facility: [facility] Address: [address] [place] [address] Performed By: #### 2 777-1, 09765-8, ####[facility]ATORYCLIA [id number] [address] CBC W Auto Differential pane l (Bld)on 07-16-2021 Basophils (Bld) [#/Vol] 0.06 10*3/uL Normal <0.11 [facility] Comment on above: Order Comment: Speci men Type: BLOOD SPECIMENOrdering Facility: [facility] Address: [address] [place] [address] Performed By: #### 5 7021-8 ####[facility]ATORYCLIA [id number] [address] Basophils/100 WBC (Bld) 0.7 % Normal [facility] Comment on above: Order Comment: Speci men Type: BLOOD SPECIMENOrdering Facility: [facility] Address: [address] [place] [address] Performed By: #### 5 7021-8 ####[facility]ATORYCLIA [id number] [address] Differential cell count method Nom (Bld) Auto Normal [facility] Comment on above: Order Comment: Speci men Type: BLOOD SPECIMENOrdering Facility: [facility] Address: [address] [place] [address] Performed By: #### 5 7021-8 ####[facility]ATORYCLIA [id number] [address] Eosinophils (Bld) [#/Vol] 0.35 10*3/uL Normal <0.46 [facility] Comment on above: Order Comment: Speci men Type: BLOOD SPECIMENOrdering Facility: [facility] Address: [address] [place] [address] Performed By: #### 5 7021-8 ####[facility]ATORYCLIA [id number] [address] Eosinophils/100 WBC (Bld) 3.9 % Normal [facility] Comment on above: Order Comment: Speci men Type: BLOOD SPECIMENOrdering Facility: [facility] Address: [address] [place] [address] Performed By: #### 5 7021-8 ####[facility]ATORYCLIA [id number] [address] Erythrocyte distribution width (RBC) [Ratio] 16.5 % High 11.5-15.0 [facility] Comment on above: Order Comment: Speci men Type: BLOOD SPECIMENOrdering Facility: [facility] Address: [address] [place] [address] Performed By: #### 5 7021-8 ####[facility]ORATORYCLIA [id number] [address] Hematocrit (Bld) [Volume fraction] 30.9 % Low 39.0-51.0 [facility] Comment on above: Order Comment: Speci men Type: BLOOD SPECIMENOrdering Facility: [facility] Address: [address] [place] [address] Performed By: #### 5 7021-8 ####[facility]ORATORYCLIA [id number] [address] OF [facility] Hemoglobin (Bld) [Mass/Vol] 9.1 g/dL Low 13.0-17.0 [facility] Comment on above: Order Comment: Speci men Type: BLOOD SPECIMENOrdering Facility: [facility] Address: [address] [place] [address] Performed By: #### 5 7021-8 ####[facility]ORATORYCLIA [id number] [address] IMMATURE GRAN % 0.4 % Normal [facility] Comment on above: Order Comment: Speci men Type: BLOOD SPECIMENOrdering Facility: [facility] Address: [address] [place] [address] Performed By: #### 5 7021-8 ####[facility]ATORYCLIA [id number] [address] IMMATURE GRAN ABS 0.04 k/uL Normal <0.10 [facility] Comment on above: Order Comment: Speci men Type: BLOOD SPECIMENOrdering Facility: [facility] Address: [address] [place] [address] Performed By: #### 5 7021-8 ####[facility]ORATORYCLIA [id number] [address] [place] Lymphocytes (Bld) [#/Vol] 1.35 10*3/uL Normal 1.00-4.00 [facility] Comment on above: Order Comment: Speci men Type: BLOOD SPECIMENOrdering Facility: [facility] Address: [address] [place] [address] Performed By: #### 5 7021-8 ####[facility]ATORYCLIA [id number] [address] Lymphocytes/100 WBC (Bld) 15.0 % Normal [facility] Comment on above: Order Comment: Speci men Type: BLOOD SPECIMENOrdering Facility: [facility] Address: [address] [place] [address] Performed By: #### 5 7021-8 ####[facility]ORATORYCLIA [id number] [address] MCH (RBC) [Entitic mass] 27.1 pg Normal 26.0-34.0 [facility] Comment on above: Order Comment: Speci men Type: BLOOD SPECIMENOrdering Facility: [facility] Address: [address] [place] [address] Performed By: #### 5 7021-8 ####[facility]ATORYCLIA [id number] [address] MCHC (RBC) [Mass/Vol] 29.4 g/dL Low 30.5-36.0 [facility] Comment on above: Order Comment: Speci men Type: BLOOD SPECIMENOrdering Facility: [facility] Address: [address] [place] [address] Performed By: #### 5 7021-8 ####[facility]ATORYCLIA [id number] [address] MCV (RBC) [Entitic vol] 92.0 fL Normal 80.0-100.0 [facility] Comment on above: Order Comment: Speci men Type: BLOOD SPECIMENOrdering Facility: [facility] Address: [address] [place] [address] Performed By: #### 5 7021-8 ####[facility]ATORYCLIA [id number] [address] Monocytes (Bld) [#/Vol] 0.53 10*3/uL Normal <0.87 [facility] Comment on above: Order Comment: Speci men Type: BLOOD SPECIMENOrdering Facility: [facility] Address: [address] [place] [address] Performed By: #### 5 7021-8 ####[facility]ATORYCLIA [id number] [address] Monocytes/100 WBC (Bld) 5.9 % Normal [facility] Comment on above: Order Comment: Speci men Type: BLOOD SPECIMENOrdering Facility: [facility] Address: [address] [place] [address] Performed By: #### 5 7021-8 ####[facility]ATORYCLIA [id number] [place] [address] [place] Neutrophils (Bld) [#/Vol] 6.67 10*3/uL Normal 1.45-7.50 [facility] Comment on above: Order Comment: Speci men Type: BLOOD SPECIMENOrdering Facility: [facility] Address: [address] [place] [address] Performed By: #### 5 7021-8 ####[facility] LABORATORYCLIA [id number] [address] [place] Neutrophils/100 WBC (Bld) 74.1 % Normal [facility] Comment on above: Order Comment: Speci men Type: BLOOD SPECIMENOrdering Facility: [facility] Address: [address] [place] [address] Performed By: #### 5 7021-8 ####[facility] LABORATORYCLIA [id number] [address] [place] Nucleated RBC (Bld) [#/Vol] 10*3/uL Normal <0.01 [facility] Comment on above: Order Comment: Speci men Type: BLOOD SPECIMENOrdering Facility: [facility] Address: [address] [place] [address] Performed By: #### 5 7021-8 ####[facility]ATORYCLIA [id number] [address] [place] Nucleated RBC/100 WBC (Bld) [Ratio] 0.0 /100 WBC Normal [facility] Comment on above: Order Comment: Speci men Type: BLOOD SPECIMENOrdering Facility: [facility] Address: [address] [place] [address] Performed By: #### 5 7021-8 ####[facility]ORATORYCLIA [id number] [place] [address] [place] Platelet mean volume (Bld) [Entitic vol] 9.9 fL Normal 9.0-12.7 [facility] Comment on above: Order Comment: Speci men Type: BLOOD SPECIMENOrdering Facility: [facility] Address: [address] [place] [address] Performed By: #### 5 7021-8 ####[facility] LABORATORYCLIA [id number] [place] [address] [place] Platelets (Bld) [#/Vol] 391 10*3/uL Normal 150-400 [facility] Comment on above: Order Comment: Speci men Type: BLOOD SPECIMENOrdering Facility: [facility] Address: [address] [place] [address] Performed By: #### 5 7021-8 ####[facility]ORATORYCLIA [id number] [place] [address] [place] RBC (Bld) [#/Vol] 3.36 10*6/uL Low 4.20-6.00 [facility] Comment on above: Order Comment: Speci men Type: BLOOD SPECIMENOrdering Facility: [facility] Address: [address] [place] [address] Performed By: #### 5 7021-8 ####[facility]ATORYCLIA [id number] [place] [address] [place] WBC (Bld) [#/Vol] 9.00 10*3/uL Normal 3.70-11.00 [facility] Comment on above: Order Comment: Speci men Type: BLOOD SPECIMENOrdering Facility: [facility] Address: [address] [place] [address] Performed By: #### 5 7021-8 ####[facility]ORATORYCLIA [id number] [address] [place] CONSULT PROGon 07-16-2021 CONSULT PROG Normal [facility] CONSULT PROG Normal [facility] Magnesium SerPl-mCncon 07-16 Magnesium [Mass/Vol] 2.3 mg/dL Normal 1.7-2.3 [facility] Comment on above: Order Comment: Speci men Type: BLOOD SPECIMENOrdering Facility: [facility] Address: [address] [place] [address] Performed By: #### 2 777-1, 92135-2, ####[facility]ORATORYCLIA [id number] [address] STATES OF [facility] NURSING PROGon 07-16-2021 NURSING PROG Normal [facility] Phosphate SerP-ncon 07-16 Phosphate [Mass/Vol] 3.6 mg/dL Normal 2.7-4.8 [facility] Comment on above: Order Comment: Speci men Type: BLOOD SPECIMENOrdering Facility: [facility] Address: [address] [place] [address] Performed By: #### 2 777-1, 96702-3, ####[facility]ORATORYCLIA [id number] [address] STATES OF [facility] Vancomycin random [Mass/Vol] on 07-16-2021 Vancomycin [Mass/Vol] 16.9 ug/mL Normal 10.0-20.0 [facility] Comment on above: Order Comment: Speci men Type: BLOOD SPECIMENOrdering Facility: [facility] Address: [address] [place] [address] Result Comment: Refe rence ranges and high/low indicator flags are provided as general guidelines only. The treating physician must determine appropriate target levels/dosing based on the specific clinical situation. Performed By: #### 4 091-5 ####[facility]ATORYCLIA [id number] [address] STATES [place] aPTT PPPon 07-16-2021 aPTT Coag (PPP) [Time] 57.2 s High 23.0-32.4 [facility] Comment on above: Order Comment: Speci men Type: BLOOD SPECIMENOrdering Facility: [facility] Address: [address] [place] [address] Performed By: #### 1 4979-9 ####[facility]ORATORYCLIA [id number] [place] [address] [place] ALLIED HEALTHon 07-15-2021 ALLIED HEALTH Normal [facility] Basic metabolic 2000 panelon 07-15-2021 Anion gap [Moles/Vol] 11 mmol/L Normal 9-18 [facility] Comment on above: Order Comment: Speci men Type: BLOOD SPECIMENOrdering Facility: [facility] Address: [address] [place] [address] Performed By: #### 2 4321-2, , 2776-05 ####[facility]ORATORYCLIA [id number] [place] [address] [place] Calcium [Mass/Vol] 8.8 mg/dL Normal 8.5-10.2 [facility] Comment on above: Order Comment: Speci men Type: BLOOD SPECIMENOrdering Facility: [facility] Address: [address] [place] [address] Performed By: #### 2 4321-2, , 2776-05 ####[facility]ORATORYCLIA [id number] [place] [address] [place] Chloride [Moles/Vol] 101 mmol/L Normal 97-105 [facility] Comment on above: Order Comment: Speci men Type: BLOOD SPECIMENOrdering Facility: [facility] Address: [address] [place] [address] Performed By: #### 2 4321-2, , 2776-05 ####[facility]ORATORYCLIA [id number] [place] [address] [place] CO2 [Moles/Vol] 31 mmol/L High 22-30 [facility] Comment on above: Order Comment: Speci men Type: BLOOD SPECIMENOrdering Facility: [facility] Address: [address] [place] [address] Performed By: #### 2 4321-2, 68590-9, 2776-05 ####[facility]ENTERCLIA [id number] [place] [address] [place] Creatinine [Mass/Vol] 0.76 mg/dL Normal 0.73-1.22 [facility] Comment on above: Order Comment: Speci francia Type: BLOOD SPECIMENOrdering Facility: [facility] Address: [address] [place], [place] [phone] Performed By: #### 2 4321-2, , 2776-05 ####[facility]PITALIA [id number] [place] [address] [place] ESTIMATED GLOMERULAR FILTRATION RATE 97 mL/min/1.73m??? Normal >=60 [facility] Comment on above: Order Comment: Speccara feldman Type: BLOOD SPECIMENOrdering Facility: [facility] Address: [address] [place], [place] [phone] Result Comment: Luzmaria mated Glomerular Filtration Rate [...] #### 2 4321-2, , 2776-05 ####[facility] HOSPITALIA [id number] [place] [address] [place] Glucose [Mass/Vol] 115 mg/dL High 74-99 [facility] Comment on above: Order Comment: Speci men Type: BLOOD SPECIMENOrdering Facility: [facility] Address: [address] [phone] Result Comment: The [employer] (ADA) provides guidance for cutoff [...] Standards of Medical Care in Diabetes 2016, [employer]. Diabetes Care. 2016.39(Suppl 1). Performed By: #### 2 4321-2, , 2776-05 ####[facility]ORATORYCLIA [id number] [place] [address] [place] Potassium [Moles/Vol] 4.0 mmol/L Normal 3.7-5.1 [facility] Comment on above: Order Comment: Shira feldman Type: BLOOD SPECIMENOrdering Facility: [facility] Address: [address] [place] [address] Performed By: #### 2 4321-2, , 2776-05 ####[facility] CENTERCLIA [id number] [address] STATES [place] Sodium [Moles/Vol] 143 mmol/L Normal 136-144 [facility] Comment on above: Order Comment: Shira feldman Type: BLOOD SPECIMENOrdering Facility: [facility] Address: [address] [place] [address] Performed By: #### 2 4321-2, , 2776-05 ####[facility]ORATORYCLIA [id number] [place] [address] [place] Urea nitrogen [Mass/Vol] 17 mg/dL Normal 9-24 [facility] Comment on above: Order Comment: Shira feldman Type: BLOOD SPECIMENOrdering Facility: [facility] Address: [address] [place] [address] Performed By: #### 2 4321-2, , 2776-05 ####[facility]ORATORYCLIA [id number] [place] [id number] [place] CASE MANAGEMon 07-15-2021 CASE MANAGEM Normal [facility] CBC panel Auto (Bld)on 07-15 Erythrocyte distribution width (RBC) [Ratio] 16.4 % High 11.5-15.0 [facility] Comment on above: Order Comment: Speci men Type: BLOOD SPECIMENOrdering Facility: [facility] Address: [address] [place] [address] Performed By: #### 5 8410-2 ####[facility]ORATORYCLIA [id number] [address] Hematocrit (Bld) [Volume fraction] 30.3 % Low 39.0-51.0 [facility] Comment on above: Order Comment: Speci men Type: BLOOD SPECIMENOrdering Facility: [facility] Address: [address] [place] [address] Performed By: #### 5 8410-2 ####[facility]ORATORYCLIA [id number] [address] STATES OF [facility] Hemoglobin (Bld) [Mass/Vol] 9.2 g/dL Low 13.0-17.0 [facility] Comment on above: Order Comment: Speci men Type: BLOOD SPECIMENOrdering Facility: [facility] Address: [address] [place] [address] Performed By: #### 5 8410-2 ####[facility]ORATORYCLIA [id number] [address] [place] MCH (RBC) [Entitic mass] 28.3 pg Normal 26.0-34.0 [facility] Comment on above: Order Comment: Speci men Type: BLOOD SPECIMENOrdering Facility: [facility] Address: [address] [place] [address] Performed By: #### 5 8410-2 ####[facility]ORATORYCLIA [id number] [address] STATES [place] MCHC (RBC) [Mass/Vol] 30.4 g/dL Low 30.5-36.0 [facility] Comment on above: Order Comment: Speci men Type: BLOOD SPECIMENOrdering Facility: [facility] Address: [address] [address] Performed By: #### 5 8410-2 ####[facility]ORATORYCLIA [id number] [address] MCV (RBC) [Entitic vol] 93.2 fL Normal 80.0-100.0 [facility] Comment on above: Order Comment: Speci men Type: BLOOD SPECIMENOrdering Facility: [facility] Address: [address] [place] [address] Performed By: #### 5 8410-2 ####[facility]ORATORYCLIA [id number] [address] Nucleated RBC (Bld) [#/Vol] 10*3/uL Normal <0.01 [facility] Comment on above: Order Comment: Speci men Type: BLOOD SPECIMENOrdering Facility: [facility] Address: [address] [place] [address] Performed By: #### 5 8410-2 ####[facility]ATORYCLIA [id number] [address] Platelet mean volume (Bld) [Entitic vol] 9.9 fL Normal 9.0-12.7 [facility] Comment on above: Order Comment: Speci men Type: BLOOD SPECIMENOrdering Facility: [facility] Address: [address] [place] [address] Performed By: #### 5 8410-2 ####[facility]ATORYCLIA [id number] [address] Platelets (Bld) [#/Vol] 381 10*3/uL Normal 150-400 [facility] Comment on above: Order Comment: Speci men Type: BLOOD SPECIMENOrdering Facility: [facility] Address: [address] [place] [address] Performed By: #### 5 8410-2 ####[facility]ORATORYCLIA [id number] [address] [place] RBC (Bld) [#/Vol] 3.25 10*6/uL Low 4.20-6.00 [facility] Comment on above: Order Comment: Speci men Type: BLOOD SPECIMENOrdering Facility: [facility] Address: [address] [place] [address] Performed By: #### 5 8410-2 ####[facility]ATORYCLIA [id number] [place] [address] [place] WBC (Bld) [#/Vol] 8.80 10*3/uL Normal 3.70-11.00 [facility] Comment on above: Order Comment: Speci men Type: BLOOD SPECIMENOrdering Facility: [facility] Address: [address] [place] [address] Performed By: #### 5 8410-2 ####[facility]ORATORYCLIA [id number] [address] [place] Magnesium SerPl-mCncon 07-15 Magnesium [Mass/Vol] 2.2 mg/dL Normal 1.7-2.3 [facility] Comment on above: Order Comment: Speci men Type: BLOOD SPECIMENOrdering Facility: [facility] Address: [address] [place] [address] Performed By: #### 2 4321-2, , 2776-05 ####[facility]ATORYCLIA [id number] [place] [address] [place] NURSING PROGon 07-15-2021 NURSING PROG Normal [facility] NURSING PROG Normal [facility] NURSING PROG Normal [facility] NUTRITIONon 07-15-2021 NUTRITION Normal [facility] Phosphate SerPl-mCncon 07-15 Phosphate [Mass/Vol] 3.4 mg/dL Normal 2.7-4.8 [facility] Comment on above: Order Comment: Speci men Type: BLOOD SPECIMENOrdering Facility: [facility] Address: [address] [place] [address] Performed By: #### 2 4321-2, , 2777-1 ####[facility]ORATORYCLIA [id number] [place] [address] [place] THERAPY NTon 07-15-2021 THERAPY NT Normal [facility] US DVT UPPER LTon 07-15-2021 US DVT UPPER LT Normal [facility] XR CHEST 1V FRONTALon 2021 XR CHEST 1V FRONTAL Normal [facility] aPTT PPPon 07-15-2021 aPTT Coag (PPP) [Time] 59.9 s High 23.0-32.4 [facility] Comment on above: Order Comment: Speci men Type: BLOOD SPECIMENOrdering Facility: [facility] Address: [address] [place] [address] Performed By: #### 1 4979-9 ####[facility]ATORYCLIA [id number] [place] [address] [place] Basic metabolic 2000 panelon 07-14-2021 Anion gap [Moles/Vol] 9 mmol/L Normal 9-18 [facility] Comment on above: Order Comment: Speci men Type: BLOOD SPECIMENOrdering Facility: [facility] Address: [address] [place] [address] Performed By: #### 1 9123-9, 2777-1, 66250-4 ####[facility]ENTERCLIA [id number] [place] [address] [place] Calcium [Mass/Vol] 8.5 mg/dL Normal 8.5-10.2 [facility] Comment on above: Order Comment: Speci men Type: BLOOD SPECIMENOrdering Facility: [facility] Address: [address] [address] Performed By: #### 1 9123-9, 2777-1, 39922-6 ####[facility]ORATORYCLIA [id number] [place] [address] [place] Chloride [Moles/Vol] 99 mmol/L Normal 97-105 [facility] Comment on above: Order Comment: Speci men Type: BLOOD SPECIMENOrdering Facility: [facility] Address: [address] [place] [address] Performed By: #### 1 9123-9, 2777, 93635-7 ####[facility]ENTERCLIA [id number] [place] [id number] [place] CO2 [Moles/Vol] 31 mmol/L High 22-30 [facility] Comment on above: Order Comment: Speci men Type: BLOOD SPECIMENOrdering Facility: [facility] Address: [address] [place] [address] Performed By: #### 1 9123-9, 27711-04, ####[facility]ENTERCLIA [id number] [address] [id number] [facility] [place] Creatinine [Mass/Vol] 0.74 mg/dL Normal 0.73-1.22 [facility] Comment on above: Order Comment: Speci men Type: BLOOD SPECIMENOrdering Facility: [facility] Address: [address] [place] [address] Performed By: #### 1 9123-9, 27711-04, ####[facility] HOSPITALIA [id number] [address] OF [facility] ESTIMATED GLOMERULAR FILTRATION RATE 98 mL/min/1.73m??? Normal >=60 [facility] Comment on above: Order Comment: Speci men Type: BLOOD SPECIMENOrdering Facility: [facility] Address: [address] [place] [address] Result Comment: Luzmaria mated Glomerular Filtration Rate [...] GFR. Performed By: #### 1 9123-9, 2777-1, 17316-6 ####[facility]ATORYCLIA [id number] [place] [id number] [place] Glucose [Mass/Vol] 117 mg/dL High 74-99 [facility] Comment on above: Order Comment: Shira feldman Type: BLOOD SPECIMENOrdering Facility: [facility] Address: [address] [place], [place] [phone] Result Comment: The [place] [employer] (ADA) provides guidance for cutoff [...] Standards of Medical Care in Diabetes 2016, [place] [employer]. Diabetes Care. 2016.39(Suppl 1). Performed By: #### 1 9123-9, 2777-, 06736-1 ####[facility]ATORYCLIA [id number] [place] [address] [place] Potassium [Moles/Vol] 3.7 mmol/L Normal 3.7-5.1 [facility] Comment on above: Order Comment: Shira feldman Type: BLOOD SPECIMENOrdering Facility: [facility] Address: [address] [place], [place] [phone] Performed By: #### 1 9123-9, 2777-, 17017-3 ####[facility]ATORYCLIA [id number] [place] [address] [place] Sodium [Moles/Vol] 139 mmol/L Normal 136-144 [facility] Comment on above: Order Comment: Shira feldman Type: BLOOD SPECIMENOrdering Facility: [facility] Address: [address] [place], [place] [phone] Performed By: #### 1 9123-9, 2777-, 63090-5 ####[facility]ATORYCLIA [id number] [place] [address] [place] Urea nitrogen [Mass/Vol] 16 mg/dL Normal 9-24 [facility] Comment on above: Order Comment: Speci men Type: BLOOD SPECIMENOrdering Facility: [facility] Address: [address] [place] [address] Performed By: #### 1 9123-9, 2777-1, 67208-0 ####[facility]ATORYCLIA [id number] [address] STATES [facility] CBC panel Auto (Bld)on 07-14 Erythrocyte distribution width (RBC) [Ratio] 16.2 % High 11.5-15.0 [facility] Comment on above: Order Comment: Speci men Type: BLOOD SPECIMENOrdering Facility: [facility] Address: [address] [place] [address] Performed By: #### 5 8410-2 ####[facility]ORATORYCLIA [id number] [address] STATES [facility] Hematocrit (Bld) [Volume fraction] 29.7 % Low 39.0-51.0 [facility] Comment on above: Order Comment: Speci men Type: BLOOD SPECIMENOrdering Facility: [facility] Address: [address] [place] [address] Performed By: #### 5 8410-2 ####[facility]ORATORYCLIA [id number] [address] STATES OF [facility] Hemoglobin (Bld) [Mass/Vol] 8.8 g/dL Low 13.0-17.0 [facility] Comment on above: Order Comment: Speci men Type: BLOOD SPECIMENOrdering Facility: [facility] Address: [address] [place] [address] Performed By: #### 5 8410-2 ####[facility]ATORYCLIA [id number] [address] MCH (RBC) [Entitic mass] 27.5 pg Normal 26.0-34.0 [facility] Comment on above: Order Comment: Speci men Type: BLOOD SPECIMENOrdering Facility: [facility] Address: [address] [address] Performed By: #### 5 8410-2 ####[facility]ORATORYCLIA [id number] [address] MCHC (RBC) [Mass/Vol] 29.6 g/dL Low 30.5-36.0 [facility] Comment on above: Order Comment: Speci men Type: BLOOD SPECIMENOrdering Facility: [facility] Address: [address] [place] [address] Performed By: #### 5 8410-2 ####[facility]ATORYCLIA [id number] [address] MCV (RBC) [Entitic vol] 92.8 fL Normal 80.0-100.0 [facility] Comment on above: Order Comment: Speci men Type: BLOOD SPECIMENOrdering Facility: [facility] Address: [address] [place] [address] Performed By: #### 5 8410-2 ####[facility]ORATORYCLIA [id number] [address] Nucleated RBC (Bld) [#/Vol] 10*3/uL Normal <0.01 [facility] Comment on above: Order Comment: Speci men Type: BLOOD SPECIMENOrdering Facility: [facility] Address: [address] [place] [address] Performed By: #### 5 8410-2 ####[facility]ORATORYCLIA [id number] [address] Platelet mean volume (Bld) [Entitic vol] 9.6 fL Normal 9.0-12.7 [facility] Comment on above: Order Comment: Speci men Type: BLOOD SPECIMENOrdering Facility: [facility] Address: [address] [place] [address] Performed By: #### 5 8410-2 ####[facility]ORATORYCLIA [id number] [address] [place] Platelets (Bld) [#/Vol] 354 10*3/uL Normal 150-400 [facility] Comment on above: Order Comment: Speci men Type: BLOOD SPECIMENOrdering Facility: [facility] Address: [address] [place] [address] Performed By: #### 5 8410-2 ####[facility]ORATORYCLIA [id number] [place] [address] [place] [facility] RBC (Bld) [#/Vol] 3.20 10*6/uL Low 4.20-6.00 [facility] Comment on above: Order Comment: Speci men Type: BLOOD SPECIMENOrdering Facility: [facility] Address: [address] [place] [address] Performed By: #### 5 8410-2 ####[facility] LABORATORYCLIA [id number] [address] STATES OF [facility] WBC (Bld) [#/Vol] 9.41 10*3/uL Normal 3.70-11.00 [facility] Comment on above: Order Comment: Speci men Type: BLOOD SPECIMENOrdering Facility: [facility] Address: [address] [place] [address] Performed By: #### 5 8410-2 ####[facility]ATORYCLIA [id number] [address] CONSULT PROGon 07-14-2021 CONSULT PROG Normal [facility] Magnesium SerPl-mCncon 07-14 Magnesium [Mass/Vol] 2.2 mg/dL Normal 1.7-2.3 [facility] Comment on above: Order Comment: Speci men Type: BLOOD SPECIMENOrdering Facility: [facility] Address: [address] [place] [address] Performed By: #### 1 9123-9, 2777-1, 47949-0 ####[facility]ATORYCLIA [id number] [address] [place] NURSING PROGon 07-14-2021 NURSING PROG Normal [facility] Phosphate SerPl-mCncon 07-14 Phosphate [Mass/Vol] 3.6 mg/dL Normal 2.7-4.8 [facility] Comment on above: Order Comment: Speci men Type: BLOOD SPECIMENOrdering Facility: [facility] Address: [address] [place] [address] Performed By: #### 1 9123-9, 2777-1, 16835-2 ####[facility] LABORATORYCLIA [id number] [address] STATES [facility] aPTT PPPon 07-14-2021 aPTT Coag (PPP) [Time] 62.9 s High 23.0-32.4 [facility] Comment on above: Order Comment: Speci men Type: BLOOD SPECIMENOrdering Facility: [facility] Address: [address] [place] [address] Performed By: #### 1 4979-9 ####[facility]ENTERCLIA [id number] [address] [place] [facility] aPTT Coag (PPP) [Time] 55.2 s High 23.0-32.4 [facility] Comment on above: Order Comment: Speci men Type: BLOOD SPECIMENOrdering Facility: [facility] Address: [address] [place] [address] Performed By: #### 1 [id number] ####[facility]ATORYCLIA [id number] [address] [place] [facility] Basic metabolic 2000 panelon 07-13-2021 Anion gap [Moles/Vol] 10 mmol/L Normal 9-18 [facility] Comment on above: Order Comment: Speci men Type: BLOOD SPECIMENOrdering Facility: [facility] Address: [address] [place] [address] Performed By: #### 1 9123-9, 2777-1, 67861-4 ####[facility]ATORYCLIA [id number] [address] STATES OF [facility] Calcium [Mass/Vol] 8.5 mg/dL Normal 8.5-10.2 [facility] Comment on above: Order Comment: Speci men Type: BLOOD SPECIMENOrdering Facility: [facility] Address: [address] [place] [address] Performed By: #### 1 9123-9, 2776-05, 55554-0 ####[facility]ATORYCLIA [id number] [place] [address] [place] Chloride [Moles/Vol] 98 mmol/L Normal 97-105 [facility] Comment on above: Order Comment: Speci men Type: BLOOD SPECIMENOrdering Facility: [facility] Address: [address] [place] [address] Performed By: #### 1 9123-9, 2776-05, ####[facility]ATORYCLIA [id number] [address] [place] CO2 [Moles/Vol] 32 mmol/L High 22-30 [facility] Comment on above: Order Comment: Speci men Type: BLOOD SPECIMENOrdering Facility: [facility] Address: [address] [place] [address] Performed By: #### 1 9123-9, 2776-05, ####[facility]ORYCLIA [id number] [address] [place] Creatinine [Mass/Vol] 0.75 mg/dL Normal 0.73-1.22 [facility] Comment on above: Order Comment: Speci men Type: BLOOD SPECIMENOrdering Facility: [facility] Address: [address] [address] Performed By: #### 1 9123-9, 27711-04, 17344-7 ####[facility]ORYCLIA [id number] [address] ESTIMATED GLOMERULAR FILTRATION RATE 98 mL/min/1.73m??? Normal >=60 [facility] Comment on above: Order Comment: Speci men Type: BLOOD SPECIMENOrdering Facility: [facility] Address: [address] [place] [address] Result Comment: Luzmaria mated Glomerular Filtration Rate [...] GFR. Performed By: #### 1 9123-9, 2777-, 77714-8 ####[facility]ATORYCLIA [id number] [place] [address] [place] Glucose [Mass/Vol] 118 mg/dL High 74-99 [facility] Comment on above: Order Comment: Shira feldman Type: BLOOD SPECIMENOrdering Facility: [facility] Address: [address] [place] [address] Result Comment: The [employer] (ADA) provides guidance for cutoff [...] Standards of Medical Care in Diabetes 2016, [employer]. Diabetes Care. 2016.39(Suppl 1). Performed By: #### 1 9123-9, 2777-, 93081-3 ####[facility] LAB[facility]ATORYIA [id number] [place] [address] [place] Potassium [Moles/Vol] 3.6 mmol/L Low 3.7-5.1 [facility] Comment on above: Order Comment: Shira feldman Type: BLOOD SPECIMENOrdering Facility: [facility] Address: [address] [place] [place] [address] Performed By: #### 1 9123-9, 2777-, 16038-2 ####[facility]ATORYCLIA [id number] [address] [place] Sodium [Moles/Vol] 140 mmol/L Normal 136-144 [facility] Comment on above: Order Comment: Speci men Type: BLOOD SPECIMENOrdering Facility: [facility] Address: [address] [place] [address] Performed By: #### 1 9123-9, 2777-1, 61571-0 ####[facility]ORYCLIA [id number] [address] [place] Urea nitrogen [Mass/Vol] 15 mg/dL Normal 9-24 [facility] Comment on above: Order Comment: Speci men Type: BLOOD SPECIMENOrdering Facility: [facility] Address: [address] [place] [address] Performed By: #### 1 9123-9, 2777-1, 93499-6 ####[facility]ORYCLIA [id number] [address] CASE MANAGEMon 07-13-2021 CASE MANAGEM Normal [facility] CBC panel Auto (Bld)on 07-13 Erythrocyte distribution width (RBC) [Ratio] 16.2 % High 11.5-15.0 [facility] Comment on above: Order Comment: Speci men Type: BLOOD SPECIMENOrdering Facility: [facility] Address: [address] [place] [address] Performed By: #### 5 8410-2 ####[facility]ATORYCLIA [id number] [address] STATES OF [facility] Hematocrit (Bld) [Volume fraction] 29.5 % Low 39.0-51.0 [facility] Comment on above: Order Comment: Speci men Type: BLOOD SPECIMENOrdering Facility: [facility] Address: [address] [place] [address] Performed By: #### 5 8410-2 ####[facility]ATORYCLIA [id number] [place] [address] [place] Hemoglobin (Bld) [Mass/Vol] 8.9 g/dL Low 13.0-17.0 [facility] Comment on above: Order Comment: Speci men Type: BLOOD SPECIMENOrdering Facility: [facility] Address: [address] [place] [address] Performed By: #### 5 8410-2 ####[facility]ORYCLIA [id number] [address] MCH (RBC) [Entitic mass] 27.8 pg Normal 26.0-34.0 [facility] Comment on above: Order Comment: Speci men Type: BLOOD SPECIMENOrdering Facility: [facility] Address: [address] [place] [address] Performed By: #### 5 8410-2 ####[facility]ORYCLIA [id number] [address] STATES OF [facility] MCHC (RBC) [Mass/Vol] 30.2 g/dL Low 30.5-36.0 [facility] Comment on above: Order Comment: Speci men Type: BLOOD SPECIMENOrdering Facility: [facility] Address: [address] [place] [address] Performed By: #### 5 8410-2 ####[facility]ATORYCLIA [id number] [address] MCV (RBC) [Entitic vol] 92.2 fL Normal 80.0-100.0 [facility] Comment on above: Order Comment: Speci men Type: BLOOD SPECIMENOrdering Facility: [facility] Address: [address] [place] [address] Performed By: #### 5 8410-2 ####[facility]ATORYCLIA [id number] [address] Nucleated RBC (Bld) [#/Vol] 10*3/uL Normal <0.01 [facility] Comment on above: Order Comment: Speci men Type: BLOOD SPECIMENOrdering Facility: [facility] Address: [address] [place] [address] Performed By: #### 5 8410-2 ####[facility]ATORYCLIA [id number] [address] Platelet mean volume (Bld) [Entitic vol] 9.8 fL Normal 9.0-12.7 [facility] Comment on above: Order Comment: Speci men Type: BLOOD SPECIMENOrdering Facility: [facility] Address: [address] [place] [address] Performed By: #### 5 8410-2 ####[facility]ATORYCLIA [id number] [address] [place] Platelets (Bld) [#/Vol] 356 10*3/uL Normal 150-400 [facility] Comment on above: Order Comment: Speci men Type: BLOOD SPECIMENOrdering Facility: [facility] Address: [address] [place] [address] Performed By: #### 5 8410-2 ####[facility]ATORYCLIA [id number] [address] [place] RBC (Bld) [#/Vol] 3.20 10*6/uL Low 4.20-6.00 [facility] Comment on above: Order Comment: Speci men Type: BLOOD SPECIMENOrdering Facility: [facility] Address: [address] [place] [address] Performed By: #### 5 8410-2 ####[facility]ATORYCLIA [id number] [address] [place] WBC (Bld) [#/Vol] 9.20 10*3/uL Normal 3.70-11.00 [facility] Comment on above: Order Comment: Speci men Type: BLOOD SPECIMENOrdering Facility: [facility] Address: [address] [place] [address] Performed By: #### 5 8410-2 ####[facility]ATORYCLIA [id number] [address] OF [facility] CONSULT PROGon 07-13-2021 CONSULT PROG Normal [facility] CONSULT PROG Normal [facility] CONSULT PROG Normal [facility] Magnesium SerPl-mCncon 07-13 Magnesium [Mass/Vol] 2.1 mg/dL Normal 1.7-2.3 [facility] Comment on above: Order Comment: Speci men Type: BLOOD SPECIMENOrdering Facility: [facility] Address: [address] [place] [address] Performed By: #### 1 9123-9, 2777-1, 57287-7 ####[facility]ATORYCLIA [id number] [address] Phosphate SerPl-mCncon 07-13 Phosphate [Mass/Vol] 3.7 mg/dL Normal 2.7-4.8 [facility] Comment on above: Order Comment: Speci men Type: BLOOD SPECIMENOrdering Facility: [facility] Address: [address] [place] [address] Performed By: #### 1 9123-9, 2777-1, 53442-8 ####[facility]ATORYCLIA [id number] [address] THERAPY NTon 07-13-2021 THERAPY NT Normal [facility] THERAPY NT Normal [facility] Vancomycin random [Mass/Vol] on 07-13-2021 Vancomycin [Mass/Vol] 31.7 ug/mL High 10.0-20.0 [facility] Comment on above: Order Comment: Speci men Type: BLOOD SPECIMENOrdering Facility: [facility] Address: [address] [place] [place] [address] Result Comment: Refe rence ranges and high/low indicator flags are provided as general guidelines only. The treating physician must determine appropriate target levels/dosing based on the specific clinical situation. Performed By: #### 4 091-5 ####[facility]ATORYCLIA [id number] [address] [place] aPTT PPPon 07-13-2021 aPTT Coag (PPP) [Time] 47.3 s High 23.0-32.4 [facility] Comment on above: Order Comment: Speci men Type: BLOOD SPECIMENOrdering Facility: [facility] Address: [address] [place] [address] Performed By: #### 1 4979-9 ####[facility]ATORYCLIA [id number] [address] STATES OF [facility] aPTT Coag (PPP) [Time] 51.2 s High 23.0-32.4 [facility] Comment on above: Order Comment: Speci men Type: BLOOD SPECIMENOrdering Facility: [facility] Address: [address] [place] [address] Performed By: #### 1 4979-9 ####[facility]ATORYCLIA [id number] [address] STATES OF [facility] aPTT Coag (PPP) [Time] 47.5 s High 23.0-32.4 [facility] Comment on above: Order Comment: Speci men Type: BLOOD SPECIMENOrdering Facility: [facility] Address: [address] [place] [address] Performed By: #### 1 4979-9 ####[facility]ATORYCLIA [id number] [place] [address] [place] Basic metabolic 2000 panelon 07-12-2021 Anion gap [Moles/Vol] 7 mmol/L Low 9-18 [facility] Comment on above: Order Comment: Speci men Type: BLOOD SPECIMENOrdering Facility: [facility] Address: [address] [place] [address] Performed By: #### 1 9123-9, 2777-1, 59675-3 ####[facility]ORYCLIA [id number] [address] STATES OF [facility] Calcium [Mass/Vol] 8.3 mg/dL Low 8.5-10.2 [facility] Comment on above: Order Comment: Speci men Type: BLOOD SPECIMENOrdering Facility: [facility] Address: [address] [place] [address] Performed By: #### 1 9123-9, 2777-1, 00052-8 ####[facility]ATORYCLIA [id number] [place] [address] [place] Chloride [Moles/Vol] 101 mmol/L Normal 97-105 [facility] Comment on above: Order Comment: Speci men Type: BLOOD SPECIMENOrdering Facility: [facility] Address: [address] [place] [address] Performed By: #### 1 9123-9, 2777-1, 43281-0 ####[facility]ATORYCLIA [id number] [place] [address] [place] CO2 [Moles/Vol] 32 mmol/L High 22-30 [facility] Comment on above: Order Comment: Speci men Type: BLOOD SPECIMENOrdering Facility: [facility] Address: [address] [place] [address] Performed By: #### 1 9123-9, 2777-, 32029-5 ####[facility]ATORYCLIA [id number] [address] [place] Creatinine [Mass/Vol] 0.70 mg/dL Low 0.73-1.22 [facility] Comment on above: Order Comment: Speci men Type: BLOOD SPECIMENOrdering Facility: [facility] Address: [address] [place] [address] Performed By: #### 1 9123-9, 2777-, 57406-8 ####[facility]ATORYCLIA [id number] [address] OF [facility] ESTIMATED GLOMERULAR FILTRATION RATE 100 mL/min/1.73m??? Normal >=60 [facility] Comment on above: Order Comment: Speci men Type: BLOOD SPECIMENOrdering Facility: [facility] Address: [address] [place] [address] Result Comment: Luzmaria mated Glomerular Filtration Rate [...] GFR. Performed By: #### 1 9123-9, 2777-, 59386-0 ####[facility]ATORYCLIA [id number] [place] [address] [place] Glucose [Mass/Vol] 104 mg/dL High 74-99 [facility] Comment on above: Order Comment: Shira feldman Type: BLOOD SPECIMENOrdering Facility: [facility] Address: [address] [place] [id number] Result Comment: The [employer] (ADA) provides guidance for cutoff [...] Standards of Medical Care in Diabetes 2016, [employer]. Diabetes Care. 2016.39(Suppl 1). Performed By: #### 1 9123-9, 2777, 30338-8 ####[facility]ATORYCLIA [id number] [place] [address] [place] Potassium [Moles/Vol] 3.7 mmol/L Normal 3.7-5.1 [facility] Comment on above: Order Comment: Shira feldman Type: BLOOD SPECIMENOrdering Facility: [facility] Address: [address] [place] [address] Performed By: #### 1 9123-9, 2777-, 59458-8 ####[facility]ATORYCLIA [id number] [place] [address] [place] Sodium [Moles/Vol] 140 mmol/L Normal 136-144 [facility] Comment on above: Order Comment: Speci men Type: BLOOD SPECIMENOrdering Facility: [facility] Address: [address] [address] Performed By: #### 1 9123-9, 2777-1, 76063-3 ####[facility]ATORYCLIA [id number] [address] STATES OF [facility] Urea nitrogen [Mass/Vol] 12 mg/dL Normal 9-24 [facility] Comment on above: Order Comment: Speci men Type: BLOOD SPECIMENOrdering Facility: [facility] Address: [address] [address] Performed By: #### 1 9123-9, 2777, 84744-6 ####[facility]ATORYCLIA [id number] [address] STATES OF [facility] CBC panel Auto (Bld)on 07-12 Erythrocyte distribution width (RBC) [Ratio] 16.1 % High 11.5-15.0 [facility] Comment on above: Order Comment: Speci men Type: BLOOD SPECIMENOrdering Facility: [facility] Address: [address] [place] [address] Performed By: #### 5 8410-2 ####[facility]ATORYCLIA [id number] [address] STATES OF [facility] Hematocrit (Bld) [Volume fraction] 28.2 % Low 39.0-51.0 [facility] Comment on above: Order Comment: Speci men Type: BLOOD SPECIMENOrdering Facility: [facility] Address: [address] [address] Performed By: #### 5 8410-2 ####[facility]ATORYCLIA [id number] [address] STATES OF [facility] Hemoglobin (Bld) [Mass/Vol] 8.5 g/dL Low 13.0-17.0 [facility] Comment on above: Order Comment: Speci men Type: BLOOD SPECIMENOrdering Facility: [facility] Address: [address] [address] Performed By: #### 5 8410-2 ####[facility]ATORYCLIA [id number] [address] MCH (RBC) [Entitic mass] 26.8 pg Normal 26.0-34.0 [facility] Comment on above: Order Comment: Speci men Type: BLOOD SPECIMENOrdering Facility: [facility] Address: [address] [place] [address] Performed By: #### 5 8410-2 ####[facility]ATORYCLIA [id number] [address] MCHC (RBC) [Mass/Vol] 30.1 g/dL Low 30.5-36.0 [facility] Comment on above: Order Comment: Speci men Type: BLOOD SPECIMENOrdering Facility: [facility] Address: [address] [place] [address] Performed By: #### 5 8410-2 ####[facility]ATORYCLIA [id number] [address] MCV (RBC) [Entitic vol] 89.0 fL Normal 80.0-100.0 [facility] Comment on above: Order Comment: Speci men Type: BLOOD SPECIMENOrdering Facility: [facility] Address: [address] [place] [address] Performed By: #### 5 8410-2 ####[facility]ATORYCLIA [id number] [address] Nucleated RBC (Bld) [#/Vol] 10*3/uL Normal <0.01 [facility] Comment on above: Order Comment: Speci men Type: BLOOD SPECIMENOrdering Facility: [facility] Address: [address] [place] [address] Performed By: #### 5 8410-2 ####[facility]ATORYCLIA [id number] [address] Platelet mean volume (Bld) [Entitic vol] 9.6 fL Normal 9.0-12.7 [facility] Comment on above: Order Comment: Speci men Type: BLOOD SPECIMENOrdering Facility: [facility] Address: [address] [place] [address] Performed By: #### 5 8410-2 ####[facility]ATORYCLIA [id number] [address] [place] Platelets (Bld) [#/Vol] 340 10*3/uL Normal 150-400 [facility] Comment on above: Order Comment: Speci men Type: BLOOD SPECIMENOrdering Facility: [facility] Address: [address] [place] [address] Performed By: #### 5 8410-2 ####[facility]ATORYCLIA [id number] [address] STATES OF [facility] RBC (Bld) [#/Vol] 3.17 10*6/uL Low 4.20-6.00 [facility] Comment on above: Order Comment: Speci men Type: BLOOD SPECIMENOrdering Facility: [facility] Address: [address] [place] [address] Performed By: #### 5 8410-2 ####[facility]ATORYCLIA [id number] [address] WBC (Bld) [#/Vol] 8.66 10*3/uL Normal 3.70-11.00 [facility] Comment on above: Order Comment: Speci men Type: BLOOD SPECIMENOrdering Facility: [facility] Address: [address] [place] [address] Performed By: #### 5 8410-2 ####[facility]ATORYCLIA [id number] [address] [place] CONSULTon 07-12-2021 CONSULT Normal [facility] CONSULT PROGon 07-12-2021 CONSULT PROG Normal [facility] Magnesium SerPl-mCncon 07-12 Magnesium [Mass/Vol] 2.1 mg/dL Normal 1.7-2.3 [facility] Comment on above: Order Comment: Speci men Type: BLOOD SPECIMENOrdering Facility: [facility] Address: [address] [place] [address] Performed By: #### 1 9123-9, 2777-1, 86272-3 ####[facility]ATORYCLIA [id number] [address] NURSING PROGon 07-12-2021 NURSING PROG Normal [facility] Phosphate SerPl-mCncon 07-12 Phosphate [Mass/Vol] 3.1 mg/dL Normal 2.7-4.8 [facility] Comment on above: Order Comment: Speci men Type: BLOOD SPECIMENOrdering Facility: [facility] Address: [address] [place] [address] Performed By: #### 1 9123-9, 2777-1, 83553-7 ####[facility]ATORYCLIA [id number] [address] THERAPY NTon 07-12-2021 THERAPY NT Normal [facility] aPTT PPPon 07-12-2021 aPTT Coag (PPP) [Time] 49.5 s High 23.0-32.4 [facility] Comment on above: Order Comment: Speci men Type: BLOOD SPECIMENOrdering Facility: [facility] Address: [address] [place] [address] Performed By: #### 1 4979-9 ####[facility]ORATORYCLIA [id number] [address] STATES OF [facility] aPTT Coag (PPP) [Time] 68.0 s High 23.0-32.4 [facility] Comment on above: Order Comment: Speci men Type: BLOOD SPECIMENOrdering Facility: [facility] Address: [address] [place] [address] Performed By: #### 1 4979-9 ####[facility]ATORYCLIA [id number] [address] aPTT Coag (PPP) [Time] 80.0 s High 23.0-32.4 [facility] Comment on above: Order Comment: Speci men Type: BLOOD SPECIMENOrdering Facility: [facility] Address: [address] [place] [address] Performed By: #### 1 4979-9 ####[facility] LABORATORYCLIA [id number] [address] [place] CASE MGT INIT ASSESon 2021 CASE MGT INIT ASSES Normal [facility] CBC panel Auto (Bld)on 07-11 Erythrocyte distribution width (RBC) [Ratio] 16.3 % High 11.5-15.0 [facility] Comment on above: Order Comment: Speci men Type: BLOOD SPECIMENOrdering Facility: [facility] Address: [address] [place] [address] Performed By: #### 5 8410-2 ####[facility]ORATORYCLIA [id number] [address] STATES OF [facility] Hematocrit (Bld) [Volume fraction] 28.3 % Low 39.0-51.0 [facility] Comment on above: Order Comment: Speci men Type: BLOOD SPECIMENOrdering Facility: [facility] Address: [address] [place] [address] Performed By: #### 5 8410-2 ####[facility]ATORYCLIA [id number] [address] [place] Hemoglobin (Bld) [Mass/Vol] 8.8 g/dL Low 13.0-17.0 [facility] Comment on above: Order Comment: Speci men Type: BLOOD SPECIMENOrdering Facility: [facility] Address: [address] [place] [address] Performed By: #### 5 8410-2 ####[facility]ATORYCLIA [id number] [address] [place] MCH (RBC) [Entitic mass] 27.4 pg Normal 26.0-34.0 [facility] Comment on above: Order Comment: Speci men Type: BLOOD SPECIMENOrdering Facility: [facility] Address: [address] [place] [address] Performed By: #### 5 8410-2 ####[facility]ATORYCLIA [id number] [address] MCHC (RBC) [Mass/Vol] 31.1 g/dL Normal 30.5-36.0 [facility] Comment on above: Order Comment: Speci men Type: BLOOD SPECIMENOrdering Facility: [facility] Address: [address] [place] [address] Performed By: #### 5 8410-2 ####[facility]ATORYCLIA [id number] [address] MCV (RBC) [Entitic vol] 88.2 fL Normal 80.0-100.0 [facility] Comment on above: Order Comment: Speci men Type: BLOOD SPECIMENOrdering Facility: [facility] Address: [address] [place] [address] Performed By: #### 5 8410-2 ####[facility] LABORATORYCLIA [id number] [address] Nucleated RBC (Bld) [#/Vol] 10*3/uL Normal <0.01 [facility] Comment on above: Order Comment: Speci men Type: BLOOD SPECIMENOrdering Facility: [facility] Address: [address] [place] [address] Performed By: #### 5 8410-2 ####[facility] LABORATORYCLIA [id number] [address] Platelet mean volume (Bld) [Entitic vol] 9.7 fL Normal 9.0-12.7 [facility] Comment on above: Order Comment: Speci men Type: BLOOD SPECIMENOrdering Facility: [facility] Address: [address] [place] [address] Performed By: #### 5 8410-2 ####[facility] LABORATORYCLIA [id number] [address] [place] Platelets (Bld) [#/Vol] 315 10*3/uL Normal 150-400 [facility] Comment on above: Order Comment: Speci men Type: BLOOD SPECIMENOrdering Facility: [facility] Address: [address] [place] [address] Performed By: #### 5 8410-2 ####[facility]ATORYCLIA [id number] [place] [address] [place] RBC (Bld) [#/Vol] 3.21 10*6/uL Low 4.20-6.00 [facility] Comment on above: Order Comment: Speci men Type: BLOOD SPECIMENOrdering Facility: [facility] Address: [address] [place] [address] Performed By: #### 5 8410-2 ####[facility]ATORYCLIA [id number] [address] STATES OF [facility] WBC (Bld) [#/Vol] 9.18 10*3/uL Normal 3.70-11.00 [facility] Comment on above: Order Comment: Speci men Type: BLOOD SPECIMENOrdering Facility: [facility] Address: [address] [place] [address] Performed By: #### 5 8410-2 ####[facility]ATORYCLIA [id number] [address] [place] CONSULT PROGon 07-11-2021 CONSULT PROG Normal [facility] CT BRAIN WO IVCONon 07-12-[address] BRAIN WO IVCON Normal [facility] Magnesium SerPl-mCncon 07-11 Magnesium [Mass/Vol] 2.1 mg/dL Normal 1.7-2.3 [facility] Comment on above: Order Comment: Speci men Type: BLOOD SPECIMENOrdering Facility: [facility] Address: [address] [place] [address] Performed By: #### 1 9123-9, 2777-1 ####[facility]ORYCLIA [id number] [address] NURSING PROGon 07-11-2021 NURSING PROG Normal [facility] NURSING PROG Normal [facility] Phosphate SerPl-mCncon 07-11 Phosphate [Mass/Vol] 3.4 mg/dL Normal 2.7-4.8 [facility] Comment on above: Order Comment: Speci men Type: BLOOD SPECIMENOrdering Facility: [facility] Address: [address] [place] [address] Performed By: #### 1 9123-9, 2777-1 ####[facility]ORYCLIA [id number] [address] THERAPY NTon 07-11-2021 THERAPY NT Normal [facility] Vancomycin random [Mass/Vol] on 07-11-2021 Vancomycin [Mass/Vol] 28.6 ug/mL High 10.0-20.0 [facility] Comment on above: Order Comment: Speci men Type: BLOOD SPECIMENOrdering Facility: [facility] Address: [address] [place] [address] Result Comment: Refe rence ranges and high/low indicator flags are provided as general guidelines only. The treating physician must determine appropriate target levels/dosing based on the specific clinical situation. Performed By: #### 4 091-5 ####[facility]ATORYCLIA [id number] [address] aPTT PPPon 07-11-2021 aPTT Coag (PPP) [Time] 62.0 s High 23.0-32.4 [facility] Comment on above: Order Comment: Speci men Type: BLOOD SPECIMENOrdering Facility: [facility] Address: [address] [place] [address] Performed By: #### 1 4979-9 ####[facility]ORYCLIA [id number] [address] aPTT Coag (PPP) [Time] 52.7 s High 23.0-32.4 [facility] Comment on above: Order Comment: Speci men Type: BLOOD SPECIMENOrdering Facility: [facility] Address: [address] [place] [address] Performed By: #### 1 4979-9 ####[facility]ATORYCLIA [id number] [address] aPTT Coag (PPP) [Time] 29.9 s Normal 23.0-32.4 [facility] Comment on above: Order Comment: Speci men Type: BLOOD SPECIMENOrdering Facility: [facility] Address: [address] [place] [address] Performed By: #### 1 4979-9 ####[facility]ATORYCLIA [id number] [address] [place] Basic metabolic 2000 panelon 07-10-2021 Anion gap [Moles/Vol] 14 mmol/L Normal 9-18 [facility] Comment on above: Order Comment: Speci men Type: BLOOD SPECIMENOrdering Facility: [facility] Address: [address] [place] [address] Performed By: #### 1 9123-9, 2777-1, 70361-2 ####[facility]ENTERCLIA [id number] [place] [address] [place] Calcium [Mass/Vol] 8.5 mg/dL Normal 8.5-10.2 [facility] Comment on above: Order Comment: Speci men Type: BLOOD SPECIMENOrdering Facility: [facility] Address: [address] [place] [address] Performed By: #### 1 9123-9, 2777-1, 50972-2 ####[facility]ATORYCLIA [id number] [place] [address] [place] Chloride [Moles/Vol] 100 mmol/L Normal 97-105 [facility] Comment on above: Order Comment: Speci men Type: BLOOD SPECIMENOrdering Facility: [facility] Address: [address] [place] [address] Performed By: #### 1 9123-9, 2776-05, ####[facility]ENTERCLIA [id number] [place] [address] [place] CO2 [Moles/Vol] 27 mmol/L Normal 22-30 [facility] Comment on above: Order Comment: Speci men Type: BLOOD SPECIMENOrdering Facility: [facility] Address: [address] [place] [address] Performed By: #### 1 9123-9, 2776-05, ####[facility]ENTERCLIA [id number] [address] STATES OF [facility] Creatinine [Mass/Vol] 0.66 mg/dL Low 0.73-1.22 [facility] Comment on above: Order Comment: Speci men Type: BLOOD SPECIMENOrdering Facility: [facility] Address: [address] [place] [address] Performed By: #### 1 9123-9, 2776-05, ####[facility]ITALIA [id number] [address] ESTIMATED GLOMERULAR FILTRATION RATE 102 mL/min/1.73m??? Normal >=60 [facility] Comment on above: Order Comment: Speci men Type: BLOOD SPECIMENOrdering Facility: [facility] Address: [address] [place] [address] Result Comment: Luzmaria mated Glomerular Filtration Rate [...] GFR. Performed By: #### 1 9123-9, 27711-04, ####[facility]ATORYCLIA [id number] [place] [id number] [place] [facility] Glucose [Mass/Vol] 93 mg/dL Normal 74-99 [facility] Comment on above: Order Comment: Speci men Type: BLOOD SPECIMENOrdering Facility: [facility] Address: [address] [place], [place] [address] Result Comment: The [employer] (ADA) provides guidance for cutoff [...] Standards of Medical Care in Diabetes 2016, [employer]. Diabetes Care. 2016.39(Suppl 1). Performed By: #### 1 9123-9, 2777-, 86852-2 ####[facility]ATORYCLIA [id number] [place] [address] [place] Potassium [Moles/Vol] 3.5 mmol/L Low 3.7-5.1 [facility] Comment on above: Order Comment: Speci men Type: BLOOD SPECIMENOrdering Facility: [facility] Address: [address] [place], [place] [address] Performed By: #### 1 9123-9, 2777-, 34561-2 ####[facility]ATORYCLIA [id number] [place] [address] [place] Sodium [Moles/Vol] 141 mmol/L Normal 136-144 [facility] Comment on above: Order Comment: Speci men Type: BLOOD SPECIMENOrdering Facility: [facility] Address: [address] [place], [place] [address] Performed By: #### 1 9123-9, 2777, 54845-0 ####[facility]ATORYCLIA [id number] [place] [address] [place] Urea nitrogen [Mass/Vol] 11 mg/dL Normal 9-24 [facility] Comment on above: Order Comment: Speci men Type: BLOOD SPECIMENOrdering Facility: [facility] Address: [address] [place] [address] Performed By: #### 1 9123-9, 2777-1, 93432-9 ####[facility]ATORYCLIA [id number] [address] CBC panel Auto (Bld)on 07-10 Erythrocyte distribution width (RBC) [Ratio] 16.2 % High 11.5-15.0 [facility] Comment on above: Order Comment: Speci men Type: BLOOD SPECIMENOrdering Facility: [facility] Address: [address] [place] [address] Performed By: #### 5 8410-2 ####[facility]ATORYCLIA [id number] [address] Hematocrit (Bld) [Volume fraction] 30.6 % Low 39.0-51.0 [facility] Comment on above: Order Comment: Speci men Type: BLOOD SPECIMENOrdering Facility: [facility] Address: [address] [place] [address] Performed By: #### 5 8410-2 ####[facility]ATORYCLIA [id number] [address] Hemoglobin (Bld) [Mass/Vol] 9.6 g/dL Low 13.0-17.0 [facility] Comment on above: Order Comment: Speci men Type: BLOOD SPECIMENOrdering Facility: [facility] Address: [address] [place] [address] Performed By: #### 5 8410-2 ####[facility]ATORYCLIA [id number] [address] STATES [facility] MCH (RBC) [Entitic mass] 28.3 pg Normal 26.0-34.0 [facility] Comment on above: Order Comment: Speci men Type: BLOOD SPECIMENOrdering Facility: [facility] Address: [address] [place] [address] Performed By: #### 5 8410-2 ####[facility]ATORYCLIA [id number] [address] STATES OF [facility] MCHC (RBC) [Mass/Vol] 31.4 g/dL Normal 30.5-36.0 [facility] Comment on above: Order Comment: Speci men Type: BLOOD SPECIMENOrdering Facility: [facility] Address: [address] [place] [address] Performed By: #### 5 8410-2 ####[facility]ATORYCLIA [id number] [address] [place] MCV (RBC) [Entitic vol] 90.3 fL Normal 80.0-100.0 [facility] Comment on above: Order Comment: Speci men Type: BLOOD SPECIMENOrdering Facility: [facility] Address: [address] [place] [address] Performed By: #### 5 8410-2 ####[facility]ATORYCLIA [id number] [address] STATES [facility] Nucleated RBC (Bld) [#/Vol] 10*3/uL Normal <0.01 [facility] Comment on above: Order Comment: Speci men Type: BLOOD SPECIMENOrdering Facility: [facility] Address: [address] [place] [address] Performed By: #### 5 8410-2 ####[facility]ATORYCLIA [id number] [address] [place] Platelet mean volume (Bld) [Entitic vol] 9.7 fL Normal 9.0-12.7 [facility] Comment on above: Order Comment: Speci men Type: BLOOD SPECIMENOrdering Facility: [facility] Address: [address] [place] [address] Performed By: #### 5 8410-2 ####[facility]ATORYCLIA [id number] [address] [place] Platelets (Bld) [#/Vol] 306 10*3/uL Normal 150-400 [facility] Comment on above: Order Comment: Speci men Type: BLOOD SPECIMENOrdering Facility: [facility] Address: [address] [place] [address] Performed By: #### 5 8410-2 ####[facility]ATORYCLIA [id number] [address] RBC (Bld) [#/Vol] 3.39 10*6/uL Low 4.20-6.00 [facility] Comment on above: Order Comment: Speci men Type: BLOOD SPECIMENOrdering Facility: [facility] Address: [address] [place] [address] Performed By: #### 5 8410-2 ####[facility]ORYCLIA [id number] [address] WBC (Bld) [#/Vol] 9.81 10*3/uL Normal 3.70-11.00 [facility] Comment on above: Order Comment: Speci men Type: BLOOD SPECIMENOrdering Facility: [facility] Address: [address] [place] [address] Performed By: #### 5 8410-2 ####[facility]ATORYCLIA [id number] [address] [place] CONSULTon 07-10-2021 CONSULT Normal [facility] CONSULT Normal [facility] Magnesium SerPl-mCncon 07-10 Magnesium [Mass/Vol] 1.9 mg/dL Normal 1.7-2.3 [facility] Comment on above: Order Comment: Speci men Type: BLOOD SPECIMENOrdering Facility: [facility] Address: [address] [place] [address] Performed By: #### 1 9123-9, 2777-1, 43479-3 ####[facility]ATORYCLIA [id number] [address] NURSING PROGon 07-10-2021 NURSING PROG Normal [facility] NURSING PROG Normal [facility] NUTRITIONon 07-10-2021 NUTRITION Normal [facility] Phosphate SerPl-mCncon 07-10 Phosphate [Mass/Vol] 3.6 mg/dL Normal 2.7-4.8 [facility] Comment on above: Order Comment: Speci men Type: BLOOD SPECIMENOrdering Facility: [facility] Address: [address] [place] [address] Performed By: #### 1 9123-9, 2777-1, 04035-9 ####[facility]ATORYCLIA [id number] [address] [place] US DVT LOWER BILon US DVT LOWER RAINER Normal [facility] aPTT PPPon 07-10-2021 aPTT Coag (PPP) [Time] 28.8 s Normal 23.0-32.4 [facility] Comment on above: Order Comment: Speci men Type: BLOOD SPECIMENOrdering Facility: [facility] Address: [address] [place] [address] Performed By: #### 1 4979-9 ####[facility]ATORYCLIA [id number] [address] aPTT Coag (PPP) [Time] 28.4 s Normal 23.0-32.4 [facility] Comment on above: Order Comment: Speci men Type: BLOOD SPECIMENOrdering Facility: [facility] Address: [address] [place] [address] Performed By: #### 1 4979-9 ####[facility]ATORYCLIA [id number] [address] [place] ALLIED HEALTHon 07-09-2021 ALLIED HEALTH Normal [facility] Basic metabolic 2000 panelon 07-09-2021 Anion gap [Moles/Vol] 9 mmol/L Normal 9-18 [facility] Comment on above: Order Comment: Speci men Type: BLOOD SPECIMENOrdering Facility: [facility] Address: [address] [place] [address] Performed By: #### 1 9123-9, 2777-1, 64685-2 ####[facility]ATORYCLIA [id number] [place] [address] [place] [facility] Calcium [Mass/Vol] 8.3 mg/dL Low 8.5-10.2 [facility] Comment on above: Order Comment: Speci men Type: BLOOD SPECIMENOrdering Facility: [facility] Address: [address] [place] [address] Performed By: #### 1 9123-9, 2777-1, 27660-8 ####[facility]ATORYCLIA [id number] [place] [address] [place] Chloride [Moles/Vol] 100 mmol/L Normal 97-105 [facility] Comment on above: Order Comment: Speci men Type: BLOOD SPECIMENOrdering Facility: [facility] Address: [address] [place] [address] Performed By: #### 1 9123-9, 27711-04, 93022-2 ####[facility]ATORYCLIA [id number] [address] STATES OF [facility] CO2 [Moles/Vol] 29 mmol/L Normal 22-30 [facility] Comment on above: Order Comment: Speci men Type: BLOOD SPECIMENOrdering Facility: [facility] Address: [address] [place] [address] Performed By: #### 1 9123-9, 27711-04, 69012-1 ####[facility]ATORYCLIA [id number] [address] [place] Creatinine [Mass/Vol] 0.61 mg/dL Low 0.73-1.22 [facility] Comment on above: Order Comment: Speci men Type: BLOOD SPECIMENOrdering Facility: [facility] Address: [address] [place] [address] Performed By: #### 1 9123-9, 27711-04, 45749-4 ####[facility]ATORYCLIA [id number] [address] [place] ESTIMATED GLOMERULAR FILTRATION RATE 104 mL/min/1.73m??? Normal >=60 [facility] Comment on above: Order Comment: Shira feldman Type: BLOOD SPECIMENOrdering Facility: [facility] Address: [address] [place] [address] Result Comment: Luzmaria mated Glomerular Filtration Rate [...] GFR. Performed By: #### 1 9123-9, 2777-1, 49686-7 ####[facility]ATORYCLIA [id number] [place] [address] [place] Glucose [Mass/Vol] 106 mg/dL High 74-99 [facility] Comment on above: Order Comment: Shira feldman Type: BLOOD SPECIMENOrdering Facility: [facility] Address: [address] [place] [address] Result Comment: The [place] [employer] (ADA) provides guidance for cutoff [...] Standards of Medical Care in Diabetes 2016, [employer]. Diabetes Care. 2016.39(Suppl 1). Performed By: #### 1 9123-9, 2777-1, 75670-6 ####[facility]ATORYCLIA [id number] [place] [address] [place] Potassium [Moles/Vol] 3.6 mmol/L Low 3.7-5.1 [facility] Comment on above: Order Comment: Shira feldman Type: BLOOD SPECIMENOrdering Facility: [facility] Address: [address] [place] [address] Performed By: #### 1 9123-9, 2777-1, 69694-7 ####[facility]ATORYCLIA [id number] [address] Sodium [Moles/Vol] 138 mmol/L Normal 136-144 [facility] Comment on above: Order Comment: Speci men Type: BLOOD SPECIMENOrdering Facility: [facility] Address: [address] [place] [address] Performed By: #### 1 9123-9, 2777-, 84743-6 ####[facility]ATORYCLIA [id number] [address] STATES [facility] Urea nitrogen [Mass/Vol] 12 mg/dL Normal 9-24 [facility] Comment on above: Order Comment: Speci men Type: BLOOD SPECIMENOrdering Facility: [facility] Address: [address] [place] [address] Performed By: #### 1 9123-9, 2777, 50455-1 ####[facility]ATORYCLIA [id number] [address] STATES OF [facility] CBC panel Auto (Bld)on 07-09 Erythrocyte distribution width (RBC) [Ratio] 16.2 % High 11.5-15.0 [facility] Comment on above: Order Comment: Speci men Type: BLOOD SPECIMENOrdering Facility: [facility] Address: [address] [place] [address] Performed By: #### 5 8410-2 ####[facility]ATORYCLIA [id number] [address] Hematocrit (Bld) [Volume fraction] 29.0 % Low 39.0-51.0 [facility] Comment on above: Order Comment: Speci men Type: BLOOD SPECIMENOrdering Facility: [facility] Address: [address] [place] [address] Performed By: #### 5 8410-2 ####[facility]ATORYCLIA [id number] [address] Hemoglobin (Bld) [Mass/Vol] 8.8 g/dL Low 13.0-17.0 [facility] Comment on above: Order Comment: Speci men Type: BLOOD SPECIMENOrdering Facility: [facility] Address: [address] [place] [address] Performed By: #### 5 8410-2 ####[facility]ATORYCLIA [id number] [address] MCH (RBC) [Entitic mass] 27.0 pg Normal 26.0-34.0 [facility] Comment on above: Order Comment: Speci men Type: BLOOD SPECIMENOrdering Facility: [facility] Address: [address] [place] [address] Performed By: #### 5 8410-2 ####[facility]ORYCLIA [id number] [address] MCHC (RBC) [Mass/Vol] 30.3 g/dL Low 30.5-36.0 [facility] Comment on above: Order Comment: Speci men Type: BLOOD SPECIMENOrdering Facility: [facility] Address: [address] [place] [address] Performed By: #### 5 8410-2 ####[facility]ORYCLIA [id number] [address] MCV (RBC) [Entitic vol] 89.0 fL Normal 80.0-100.0 [facility] Comment on above: Order Comment: Speci men Type: BLOOD SPECIMENOrdering Facility: [facility] Address: [address] [place] [address] Performed By: #### 5 8410-2 ####[facility]ATORYCLIA [id number] [address] Nucleated RBC (Bld) [#/Vol] 10*3/uL Normal <0.01 [facility] Comment on above: Order Comment: Speci men Type: BLOOD SPECIMENOrdering Facility: [facility] Address: [address] [place] [address] Performed By: #### 5 8410-2 ####[facility]ATORYCLIA [id number] [address] STATES [facility] Platelet mean volume (Bld) [Entitic vol] 9.8 fL Normal 9.0-12.7 [facility] Comment on above: Order Comment: Speci men Type: BLOOD SPECIMENOrdering Facility: [facility] Address: [address] [place] [address] Performed By: #### 5 8410-2 ####[facility]ATORYCLIA [id number] [address] [place] Platelets (Bld) [#/Vol] 281 10*3/uL Normal 150-400 [facility] Comment on above: Order Comment: Speci men Type: BLOOD SPECIMENOrdering Facility: [facility] Address: [address] [place] [address] Performed By: #### 5 8410-2 ####[facility]ORYCLIA [id number] [address] [place] RBC (Bld) [#/Vol] 3.26 10*6/uL Low 4.20-6.00 [facility] Comment on above: Order Comment: Speci men Type: BLOOD SPECIMENOrdering Facility: [facility] Address: [address] [place] [address] Performed By: #### 5 8410-2 ####[facility]ATORYCLIA [id number] [address] [place] WBC (Bld) [#/Vol] 9.12 10*3/uL Normal 3.70-11.00 [facility] Comment on above: Order Comment: Speci men Type: BLOOD SPECIMENOrdering Facility: [facility] Address: [address] [place] [address] Performed By: #### 5 8410-2 ####[facility]ATORYCLIA [id number] [address] CONSULT PROGon 07-09-2021 CONSULT PROG Normal [facility] CONSULT PROG Normal [facility] HISTORY PHYSICALon HISTORY PHYSICAL Normal [facility] Magnesium SerPl-mCncon 07-09 Magnesium [Mass/Vol] 1.9 mg/dL Normal 1.7-2.3 [facility] Comment on above: Order Comment: Speci men Type: BLOOD SPECIMENOrdering Facility: [facility] Address: [address] [place] [address] Performed By: #### 1 9123-9, 2777-1, 76847-7 ####[facility]ATORYCLIA [id number] [address] Phosphate SerPl-mCncon 07-09 Phosphate [Mass/Vol] 3.6 mg/dL Normal 2.7-4.8 [facility] Comment on above: Order Comment: Speci men Type: BLOOD SPECIMENOrdering Facility: [facility] Address: [address] [place] [address] Performed By: #### 1 9123-9, 2777-1, 23917-9 ####[facility]ATORYCLIA [id number] [address] THERAPY NTon 07-09-2021 THERAPY NT Normal [facility] XR ABDOMEN 1V SUPINEon 07-09 XR ABDOMEN 1V SUPINE Normal [facility] ALLIED HEALTHon 07-08-2021 ALLIED HEALTH Normal [facility] ALLIED HEALTH Normal [facility] ALLIED HEALTH Normal [facility] ANES PRE-OPon 07-08-2021 ANES PRE-OP Normal [facility] BRIEF OP NOTon 07-08-2021 BRIEF OP NOT Normal [facility] Bacteria Bld Culton 07-09-19 22 Bacteria identified Cx Nom (Bld) CULTURE, BLOOD: No growth 5 days Normal [facility] Comment on above: Performed By: #### 6 00-7 ####[facility] [id number] [address] [place] Bacteria identified Cx Nom (Bld) CULTURE, BLOOD: No growth 5 days [facility] Comment on above: Performed By: #### 6 00-7 ####[facility]ORY[facility] [id number] [address] Bacteria CSF Culton 07-09-19 22 Bacteria identified Cx Nom (CSF) CULTURE, CSF: No growth 14 days GRAM STAIN: No organisms seen No Polymorphonuclear Leukocytes Few Red Blood Cells Gram stain performed on cytospun specimen. [facility] Comment on above: Performed By: #### 6 06-4 ####[facility]ATORYCLIA [id number] [address] Bacteria Ur Culton 2 Bacteria identified Cx Nom (U) ORGANISM ID: 1 10,000 -<50,000 CFU/ml Proteus species Insignificant colony count. No further workup. ORGANISM ID: 2 <10,000 CFU/ml Normal urogenital chris Normal [facility] Comment on above: Performed By: #### 6 30-4 ####[facility]ATORYCLIA [id number] [address] Bacteria Wnd Culton 07-09-19 22 Bacteria identified Cx Nom (Wound) ORGANISM ID: 1 Coagulase negative staphylococcus Growth in Enrichment Broth Only No susceptibility testing done. Call lab within 72 hours to initiate work-up if clinically indicated. GRAM STAIN: Account credited. Not performed on this specimen type. [facility] Comment on above: Performed By: #### 6 462-6 ####[facility]ORYCLIA [id number] [address] Bacteria identified Cx Nom (Wound) ORGANISM ID: 1 Rare Coagulase negative staphylococcus No susceptibility testing done. Call lab within 72 hours to initiate work-up if clinically indicated. GRAM STAIN: Account credited. Not performed on this specimen type. [facility] Comment on above: Performed By: #### 6 462-6 ####[facility]ATORYCLIA [id number] [place] [address] [place] Bacteria identified Cx Nom (Wound) CULTURE, INTRAOPERATIVE HARDWARE: No growth 14 days GRAM STAIN: Account credited. Not performed on this specimen type. Normal [facility] Comment on above: Performed By: #### 6 462-6 ####[facility]ORYCLIA [id number] [place] [address] [place] Basic metabolic 2000 panelon 07-08-2021 Anion gap [Moles/Vol] 9 mmol/L Normal 9-18 [facility] Comment on above: Order Comment: Speci men Type: BLOOD SPECIMENOrdering Facility: [facility] Address: [address] [place] [address] Performed By: #### 2 4321-2 ####[facility]ATORYCLIA [id number] [place] [address] [place] Calcium [Mass/Vol] 8.5 mg/dL Normal 8.5-10.2 [facility] Comment on above: Order Comment: Speci men Type: BLOOD SPECIMENOrdering Facility: [facility] Address: [address] [place] [address] Performed By: #### 2 4321-2 ####[facility]ORYCLIA [id number] [address] [place] Chloride [Moles/Vol] 98 mmol/L Normal 97-105 [facility] Comment on above: Order Comment: Speci men Type: BLOOD SPECIMENOrdering Facility: [facility] Address: [address] [place] [address] Performed By: #### 2 4321-2 ####[facility]ATORYCLIA [id number] [place] [address] [place] CO2 [Moles/Vol] 31 mmol/L High 22-30 [facility] Comment on above: Order Comment: Speci men Type: BLOOD SPECIMENOrdering Facility: [facility] Address: [address] [place] [address] Performed By: #### 2 4321-2 ####[facility]ATORYCLIA [id number] [address] OF [facility] Creatinine [Mass/Vol] 0.64 mg/dL Low 0.73-1.22 [facility] Comment on above: Order Comment: Johncara feldman Type: BLOOD SPECIMENOrdering Facility: [facility] Address: [address] [address] Performed By: #### 2 4321-2 ####[facility]ORYCLIA [id number] [address] ESTIMATED GLOMERULAR FILTRATION RATE 102 mL/min/1.73m??? Normal >=60 [facility] Comment on above: Order Comment: Shira francia Type: BLOOD SPECIMENOrdering Facility: [facility] Address: [address] [address] Result Comment: Luzmaria mated Glomerular Filtration Rate [...] actual GFR. Performed By: #### 2 4321-2 ####[facility]ORYCLIA [id number] [address] STATES OF [facility] Glucose [Mass/Vol] 114 mg/dL High 74-99 [facility] Comment on above: Order Comment: Johncara feldman Type: BLOOD SPECIMENOrdering Facility: [facility] Address: [address] [address] Result Comment: The [employer] (ADA) provides guidance for cutoff [...] Standards of Medical Care in Diabetes 2016, [employer]. Diabetes Care. 2016.39(Suppl 1). Performed By: #### 2 4321-2 ####[facility]ORYCLIA [id number] [address] STATES OF [facility] Potassium [Moles/Vol] 3.4 mmol/L Low 3.7-5.1 [facility] Comment on above: Order Comment: Speci men Type: BLOOD SPECIMENOrdering Facility: [facility] Address: [address] [place] [address] Performed By: #### 2 4321-2 ####[facility]ORYCLIA [id number] [address] Sodium [Moles/Vol] 138 mmol/L Normal 136-144 [facility] Comment on above: Order Comment: Speci men Type: BLOOD SPECIMENOrdering Facility: [facility] Address: [address] [place] [address] Performed By: #### 2 4321-2 ####[facility]ORYCLIA [id number] [address] Urea nitrogen [Mass/Vol] 14 mg/dL Normal 9-24 [facility] Comment on above: Order Comment: Speci men Type: BLOOD SPECIMENOrdering Facility: [facility] Address: [address] [place] [address] Performed By: #### 2 4321-2 ####[facility]ORYCLIA [id number] [address] [place] CBC W Auto Differential pane l (Bld)on 07-08-2021 Basophils (Bld) [#/Vol] 0.05 10*3/uL Normal <0.11 [facility] Comment on above: Order Comment: Speci men Type: BLOOD SPECIMENOrdering Facility: [facility] Address: [address] [place] [address] Performed By: #### 5 7021-8 ####[facility]ORYCLIA [id number] [address] STATES [facility] Basophils/100 WBC (Bld) 0.4 % Normal [facility] Comment on above: Order Comment: Speci men Type: BLOOD SPECIMENOrdering Facility: [facility] Address: [address] [place] [address] Performed By: #### 5 7021-8 ####[facility]ORYCLIA [id number] [address] Differential cell count method Nom (Bld) Auto Normal [facility] Comment on above: Order Comment: Speci men Type: BLOOD SPECIMENOrdering Facility: [facility] Address: [address] [place] [address] Performed By: #### 5 7021-8 ####[facility]ATORYCLIA [id number] [address] [place] Eosinophils (Bld) [#/Vol] 0.68 10*3/uL High <0.46 [facility] Comment on above: Order Comment: Speci men Type: BLOOD SPECIMENOrdering Facility: [facility] Address: [address] [place] [address] Performed By: #### 5 7021-8 ####[facility]ATORYCLIA [id number] [address] Eosinophils/100 WBC (Bld) 5.4 % Normal [facility] Comment on above: Order Comment: Speci men Type: BLOOD SPECIMENOrdering Facility: [facility] Address: [address] [place] [address] Performed By: #### 5 7021-8 ####[facility]ATORYCLIA [id number] [address] [place] Erythrocyte distribution width (RBC) [Ratio] 16.3 % High 11.5-15.0 [facility] Comment on above: Order Comment: Speci men Type: BLOOD SPECIMENOrdering Facility: [facility] Address: [address] [place] [address] Performed By: #### 5 7021-8 ####[facility]ATORYCLIA [id number] [address] Hematocrit (Bld) [Volume fraction] 35.7 % Low 39.0-51.0 [facility] Comment on above: Order Comment: Speci men Type: BLOOD SPECIMENOrdering Facility: [facility] Address: [address] [place] [address] Performed By: #### 5 7021-8 ####[facility]ORYCLIA [id number] [address] Hemoglobin (Bld) [Mass/Vol] 10.8 g/dL Low 13.0-17.0 [facility] Comment on above: Order Comment: Speci men Type: BLOOD SPECIMENOrdering Facility: [facility] Address: [address] [place] [address] Performed By: #### 5 7021-8 ####[facility]ORYCLIA [id number] [address] IMMATURE GRAN % 0.4 % Normal [facility] Comment on above: Order Comment: Speci men Type: BLOOD SPECIMENOrdering Facility: [facility] Address: [address] [place] [address] Performed By: #### 5 7021-8 ####[facility]ORYCLIA [id number] [address] IMMATURE GRAN ABS 0.05 k/uL Normal <0.10 [facility] Comment on above: Order Comment: Speci men Type: BLOOD SPECIMENOrdering Facility: [facility] Address: [address] [place] [address] Performed By: #### 5 7021-8 ####[facility]ORYCLIA [id number] [address] Lymphocytes (Bld) [#/Vol] 1.85 10*3/uL Normal 1.00-4.00 [facility] Comment on above: Order Comment: Speci men Type: BLOOD SPECIMENOrdering Facility: [facility] Address: [address] [place] [address] Performed By: #### 5 7021-8 ####[facility]ORYCLIA [id number] [address] Lymphocytes/100 WBC (Bld) 14.7 % Normal [facility] Comment on above: Order Comment: Speci men Type: BLOOD SPECIMENOrdering Facility: [facility] Address: [address] [place] [address] Performed By: #### 5 7021-8 ####[facility]ATORYCLIA [id number] [address] MCH (RBC) [Entitic mass] 27.1 pg Normal 26.0-34.0 [facility] Comment on above: Order Comment: Speci men Type: BLOOD SPECIMENOrdering Facility: [facility] Address: [address] [place] [address] Performed By: #### 5 7021-8 ####[facility]ORYCLIA [id number] [address] MCHC (RBC) [Mass/Vol] 30.3 g/dL Low 30.5-36.0 [facility] Comment on above: Order Comment: Speci men Type: BLOOD SPECIMENOrdering Facility: [facility] Address: [address] [place] [address] Performed By: #### 5 7021-8 ####[facility]ATORYCLIA [id number] [address] MCV (RBC) [Entitic vol] 89.7 fL Normal 80.0-100.0 [facility] Comment on above: Order Comment: Speci men Type: BLOOD SPECIMENOrdering Facility: [facility] Address: [address] [place] [address] Performed By: #### 5 7021-8 ####[facility]ATORYCLIA [id number] [address] OF [facility] Monocytes (Bld) [#/Vol] 0.87 10*3/uL High <0.87 [facility] Comment on above: Order Comment: Speci men Type: BLOOD SPECIMENOrdering Facility: [facility] Address: [address] [place] [address] Performed By: #### 5 7021-8 ####[facility]ORYCLIA [id number] [address] STATES [facility] Monocytes/100 WBC (Bld) 6.9 % Normal [facility] Comment on above: Order Comment: Speci men Type: BLOOD SPECIMENOrdering Facility: [facility] Address: [address] [place] [address] Performed By: #### 5 7021-8 ####[facility]ORYCLIA [id number] [address] [place] Neutrophils (Bld) [#/Vol] 9.05 10*3/uL High 1.45-7.50 [facility] Comment on above: Order Comment: Speci men Type: BLOOD SPECIMENOrdering Facility: [facility] Address: [address] [place] [address] Performed By: #### 5 7021-8 ####[facility]ORYCLIA [id number] [address] Neutrophils/100 WBC (Bld) 72.2 % Normal [facility] Comment on above: Order Comment: Speci men Type: BLOOD SPECIMENOrdering Facility: [facility] Address: [address] [place] [address] Performed By: #### 5 7021-8 ####[facility]ORYCLIA [id number] [address] [place] Nucleated RBC (Bld) [#/Vol] 10*3/uL Normal <0.01 [facility] Comment on above: Order Comment: Speci men Type: BLOOD SPECIMENOrdering Facility: [facility] Address: [address] [place] [address] Performed By: #### 5 7021-8 ####[facility]ORYCLIA [id number] [address] [place] Nucleated RBC/100 WBC (Bld) [Ratio] 0.0 /100 WBC Normal [facility] Comment on above: Order Comment: Speci men Type: BLOOD SPECIMENOrdering Facility: [facility] Address: [address] [place] [address] Performed By: #### 5 7021-8 ####[facility]ATORYCLIA [id number] [place] [address] [place] Platelet mean volume (Bld) [Entitic vol] 9.9 fL Normal 9.0-12.7 [facility] Comment on above: Order Comment: Speci men Type: BLOOD SPECIMENOrdering Facility: [facility] Address: [address] [place] [address] Performed By: #### 5 7021-8 ####[facility]ATORYCLIA [id number] [address] Platelets (Bld) [#/Vol] 335 10*3/uL Normal 150-400 [facility] Comment on above: Order Comment: Speci men Type: BLOOD SPECIMENOrdering Facility: [facility] Address: [address] [place] [address] Performed By: #### 5 7021-8 ####[facility]ATORYCLIA [id number] [address] [place] RBC (Bld) [#/Vol] 3.98 10*6/uL Low 4.20-6.00 [facility] Comment on above: Order Comment: Speci men Type: BLOOD SPECIMENOrdering Facility: [facility] Address: [address] [place] [address] Performed By: #### 5 7021-8 ####[facility]ATORYCLIA [id number] [address] [place] WBC (Bld) [#/Vol] 12.55 10*3/uL High 3.70-11.00 [facility] Comment on above: Order Comment: Speci men Type: BLOOD SPECIMENOrdering Facility: [facility] Address: [address] [place] [address] Performed By: #### 5 7021-8 ####[facility]ORATORYCLIA [id number] [address] OF [facility] CK CREATINE KINASEon 022 CK [Catalytic activity/Vol] 72 U/L Normal 51-298 [facility] Comment on above: Order Comment: Speci men Type: BLOOD SPECIMENOrdering Facility: [facility] Address: [address] [place] [address] Performed By: #### C K, 67190-1 ####[facility]ATORYCLIA [id number] [address] [place] CONSULT PROGon 07-08-2021 CONSULT PROG Normal [facility] CONSULT PROG Normal [facility] CSF MANUAL DIFFon 07-08-2021 DIF TTL, CSF 3 cells counted Normal [facility] Comment on above: Order Comment: Speci men Type: CEREBROSPINAL FLUIDOrdering Facility: [facility] Address: [address] [place] [address] Performed By: #### 3 4563-7, [id number] ####[facility]ATORYCLIA [id number] [place] [address] [place] LYMPH%, CSF 33 % Low 50-90 [facility] Comment on above: Order Comment: Speci men Type: CEREBROSPINAL FLUIDOrdering Facility: [facility] Address: [address] [place] [address] Performed By: #### 3 4563-7, [id number] ####[facility]ATORYCLIA [id number] [place] [address] [place] MONO%, CSF 67 % High 10-50 [facility] Comment on above: Order Comment: Speci men Type: CEREBROSPINAL FLUIDOrdering Facility: [facility] Address: [address] [place] [address] Performed By: #### 3 4563-7, [id number] ####[facility]ATORYCLIA [id number] [address] [place] CT ABD/PEL W IVCONon 022 CT ABD/PEL W IVCON Normal [facility] CT BRAIN WO IVCONon 07-09-[address] BRAIN WO IVCON Normal [facility] CT BRAIN WO IVCON Normal [facility] CT CHEST W IVCON PEon 2021 CT CHEST W IVCON PE Normal [facility] Cell count panel (CSF)on Clarity (CSF) Clear Normal Clear [facility] Comment on above: Order Comment: Speci men Type: CEREBROSPINAL FLUIDOrdering Facility: [facility] Address: [address] [place] [address] Performed By: #### 3 4563-7, [id number] ####[facility]ATORYCLIA [id number] [address] [place] Clarity (Unsp spec) Clear Normal Clear [facility] Comment on above: Order Comment: Speci men Type: CEREBROSPINAL FLUIDOrdering Facility: [facility] Address: [address] [address] Performed By: #### 3 4563-7, [id number] ####[facility]ATORYCLIA [id number] [address] OF [facility] Color (CSF) Colorless Normal Colorless [facility] Comment on above: Order Comment: Speci men Type: CEREBROSPINAL FLUIDOrdering Facility: [facility] Address: [address] [address] Performed By: #### 3 4563-7, [id number] ####[facility]ATORYCLIA [id number] [address] [place] Color (Spun CSF) Colorless Normal Colorless [facility] Comment on above: Order Comment: Speci men Type: CEREBROSPINAL FLUIDOrdering Facility: [facility] Address: [address] [address] Performed By: #### 3 4563-7, [id number] ####[facility]ORYCLIA [id number] [address] [place] CSF TUBE NUMBER [employer] Normal [facility] Comment on above: Order Comment: Speci men Type: CEREBROSPINAL FLUIDOrdering Facility: [facility] Address: [address] [place] [address] Performed By: #### 3 4563-7, [id number] ####[facility]ATORYCLIA [id number] [address] RBC Manual cnt (CSF) [#/Vol] 94 cells/uL High 0-5 [facility] Comment on above: Order Comment: Speci men Type: CEREBROSPINAL FLUIDOrdering Facility: [facility] Address: [address] [place] [address] Performed By: #### 3 4563-7, [id number] ####[facility]ATORYCLIA [id number] [address] WBC Manual cnt (CSF) [#/Vol] 1 cells/uL Normal 0-5 [facility] Comment on above: Order Comment: Speci men Type: CEREBROSPINAL FLUIDOrdering Facility: [facility] Address: [address] [place] [address] Performed By: #### 3 4563-7, [id number] ####[facility]ATORYCLIA [id number] [address] Comprehensive metabolic 2000 panelon 07-08-2021 Albumin [Mass/Vol] 3.6 g/dL Low 3.9-4.9 [facility] Comment on above: Order Comment: Speci men Type: BLOOD SPECIMENOrdering Facility: [facility] Address: [address] [place] [address] Performed By: #### C K, 63780-3 ####[facility]ATORYCLIA [id number] [address] ALP [Catalytic activity/Vol] 125 U/L High 38-113 [facility] Comment on above: Order Comment: Speci men Type: BLOOD SPECIMENOrdering Facility: [facility] Address: [address] [place] [address] Performed By: #### Eileen Valdivia, 62353-2 ####[facility]ATORYCLIA [id number] [address] STATES OF [facility] ALT With P-5'-P [Catalytic activity/Vol] 24 U/L Normal 10-54 [facility] Comment on above: Order Comment: Speci men Type: BLOOD SPECIMENOrdering Facility: [facility] Address: [address] [place] [address] Performed By: #### Eileen Valdivia, 16545-5 ####[facility]ATORYCLIA [id number] [address] STATES OF [facility] Anion gap [Moles/Vol] 16 mmol/L Normal 9-18 [facility] Comment on above: Order Comment: Speci men Type: BLOOD SPECIMENOrdering Facility: [facility] Address: [address] [place] [address] Performed By: #### Eileen Valdivia, 98955-9 ####[facility]ATORYCLIA [id number] [address] STATES OF [facility] AST With P-5'-P [Catalytic activity/Vol] 21 U/L Normal 14-40 [facility] Comment on above: Order Comment: Speci men Type: BLOOD SPECIMENOrdering Facility: [facility] Address: [address] [place] [address] Performed By: #### Eileen Valdivia, 01988-0 ####[facility]ATORYCLIA [id number] [address] [place] Bilirubin [Mass/Vol] 0.3 mg/dL Normal 0.2-1.3 [facility] Comment on above: Order Comment: Speci men Type: BLOOD SPECIMENOrdering Facility: [facility] Address: [address] [place] [address] Performed By: #### Eileen Valdivia, 15921-4 ####[facility]ATORYCLIA [id number] [address] [place] Calcium [Mass/Vol] 8.9 mg/dL Normal 8.5-10.2 [facility] Comment on above: Order Comment: Speci men Type: BLOOD SPECIMENOrdering Facility: [facility] Address: [address] [place] [address] Performed By: #### Eileen Vadlivia, 84137-9 ####[facility]ORATORYCLIA [id number] [place] [address] [place] Chloride [Moles/Vol] 96 mmol/L Low 97-105 [facility] Comment on above: Order Comment: Speci men Type: BLOOD SPECIMENOrdering Facility: [facility] Address: [address] [place] [address] Performed By: #### Eileen Valdivia, 21361-1 ####[facility]ATORYCLIA [id number] [address] [place] CO2 [Moles/Vol] 27 mmol/L Normal 22-30 [facility] Comment on above: Order Comment: Speci men Type: BLOOD SPECIMENOrdering Facility: [facility] Address: [address] [place] [address] Performed By: #### Eileen Valdivia, 17679-1 ####[facility]ATORYCLIA [id number] [address] [place] Creatinine [Mass/Vol] 0.68 mg/dL Low 0.73-1.22 [facility] Comment on above: Order Comment: Speci men Type: BLOOD SPECIMENOrdering Facility: [facility] Address: [address] [place] [address] Performed By: #### Eileen Valdivia, 36877-5 ####[facility]ORATORYCLIA [id number] [address] OF [facility] ESTIMATED GLOMERULAR FILTRATION RATE 101 mL/min/1.73m??? Normal >=60 [facility] Comment on above: Order Comment: Speci men Type: BLOOD SPECIMENOrdering Facility: [facility] Address: [address] [place] [address] Result Comment: Luzmaria mated Glomerular Filtration Rate [...] actual GFR. Performed By: #### Eileen Valdivia, 27887-4 ####[facility]ATORYCLIA [id number] [place] [address] [place] Glucose [Mass/Vol] 130 mg/dL High 74-99 [facility] Comment on above: Order Comment: Shira feldman Type: BLOOD SPECIMENOrdering Facility: [facility] Address: [address] [place], [place] [address] Result Comment: The [employer] (ADA) provides guidance for cutoff [...] Standards of Medical Care in Diabetes 2016, [employer]. Diabetes Care. 2016.39(Suppl 1). Performed By: #### Eileen Valdivia, 76342-0 ####[facility]ORATORYCLIA [id number] [address] [place] Potassium [Moles/Vol] 3.9 mmol/L Normal 3.7-5.1 [facility] Comment on above: Order Comment: Shira feldman Type: BLOOD SPECIMENOrdering Facility: [facility] Address: [address] [place] [address] Performed By: #### Eileen Valdivia, 60574-4 ####[facility]ORATORYCLIA [id number] [place] [id number] [place] Protein [Mass/Vol] 7.0 g/dL Normal 6.3-8.0 [facility] Comment on above: Order Comment: Speci men Type: BLOOD SPECIMENOrdering Facility: [facility] Address: [address] [place] [address] Performed By: #### C Skip, 92637-6 ####[facility]ATORYCLIA [id number] [address] Sodium [Moles/Vol] 139 mmol/L Normal 136-144 [facility] Comment on above: Order Comment: Speci men Type: BLOOD SPECIMENOrdering Facility: [facility] Address: [address] [place] [address] Performed By: #### Eileen Valdivia, 56323-3 ####[facility]ATORYCLIA [id number] [address] Urea nitrogen [Mass/Vol] 16 mg/dL Normal 9-24 [facility] Comment on above: Order Comment: Speci men Type: BLOOD SPECIMENOrdering Facility: [facility] Address: [address] [place] [address] Performed By: #### Eileen Valdivia, 64842-4 ####[facility]ATORYCLIA [id number] [address] ED NOTEon 07-08-2021 ED NOTE HNO ID: [id number] Author: Lenora James RN Service: Emergency Medicine Author Type: Registered Nurse Type: ED Notes Filed: 07/08/2021 5:03 PM Note Text: Pt to OR with surgical team Normal [facility] ED NOTE HNO ID: [id number] Author: Lenora James RN Service: Emergency Medicine Author Type: Registered Nurse Type: ED Notes Filed: 07/08/2021 4:50 PM Note Text: OR team to get pt Normal [facility] ED NOTE HNO ID: [id number] Author: Lenora James RN Service: Emergency Medicine Author Type: Registered Nurse Type: ED Notes Filed: 07/08/2021 4:50 PM Note Text: Normal [facility] ED NOTE HNO ID: [id number] Author: Lenora James RN Service: Emergency Medicine Author Type: Registered Nurse Type: ED Notes Filed: 07/08/2021 4:50 PM Note Text: Spoke with presurg; pt to go to OR now [facility] ED NOTE HNO ID: [id number] Author: Lenora James RN Service: Emergency Medicine Author Type: Registered Nurse Type: ED Notes Filed: 07/08/2021 4:12 PM Note Text: Neurosurgery at beside Normal [facility] ED NOTE HNO ID: [id number] Author: Lenora James RN Service: Emergency Medicine Author Type: Registered Nurse Type: ED Notes Filed: 07/08/2021 2:35 PM Note Text: respiratory aware of pt breathing treatments Normal [facility] ED NOTE HNO ID: [id number] Author: Lisa Woo RN Service: ? Author Type: Registered Nurse Type: ED Notes Filed: 07/08/2021 2:20 PM Note Text: Xray notified pt is ready. [facility] ED NOTE HNO ID: [id number] Author: Lenora James RN Service: Emergency Medicine Author Type: Registered Nurse Type: ED Notes Filed: 07/08/2021 12:14 PM Note Text: CT notified regarding imaging orders placed [facility] ED NOTE Normal [facility] ED PROV NOTEon 07-08-2021 ED PROV NOTE Normal [facility] Glucose CSF-mCncon 2 Glucose (CSF) [Mass/Vol] 88 mg/dL High 40-70 [facility] Comment on above: Order Comment: Speci men Type: CEREBROSPINAL FLUIDOrdering Facility: [facility] Address: [address] [place] [address] Result Comment: Lumb ar CSF glucose values of healthy patients are approximately 60% of the plasma values and must always be compared with a concurrently measured plasma value for adequate clinical interpretation.References: 1. Glucose HK (GLUC3) [package insert V 12.0 [place]an]. [employer], [place], [place]. September 2015. 2. Michelle Moore, Loki, H. (2015). Chapter 7: Glucose and Lactate. F. Irina rose al.(eds.), Cerebrospinal Fluid in Clinical Neurology. Pepin: Cross[employer]ader. Performed By: #### 2 880-3, 2342-4 ####[facility]ATORYCLIA [id number] [address] HIGH SENSITIVITY TROPONIN To n 07-08-2021 HIGH SENSITIVITY TAMIKO 27 ng/L High <12 [facility] Comment on above: Order Comment: Shira francia Type: BLOOD SPECIMENOrdering Facility: [facility] Address: [address] [place] [address] Result Comment: When assessing risk for acute [...] day MACE. Performed By: #### H STNT ####[facility]ATORYCLIA [id number] [address] HIGH SENSITIVITY TAMIKO 36 ng/L High <12 [facility] Comment on above: Order Comment: Shira feldman Type: BLOOD SPECIMENOrdering Facility: [facility] Address: [address] [place] [address] Result Comment: When assessing risk for acute [...] day MACE. Performed By: #### H STNT ####[facility]ORATORYCLIA [id number] [address] [place] HISTORY PHYSICALon HISTORY PHYSICAL Normal [facility] NURSING PROGon 07-08-2021 NURSING PROG Normal [facility] OPERATIVE NOon 07-08-2021 OPERATIVE NO Normal [facility] Prot CSF-mCncon 07-08-2021 Protein (CSF) [Mass/Vol] 33 mg/dL Normal 15-45 [facility] Comment on above: Order Comment: Speci men Type: CEREBROSPINAL FLUIDOrdering Facility: [facility] Address: [address] [place] [address] Performed By: #### 2 880-3, 2342-4 ####[facility]ATORYCLIA [id number] [place] [address] [place] SARS-CoV-2 RNA Resp Ql MEGAN+p robeon 07-08-2021 SARS-CoV-2 (COVID-19) RNA MEGAN+probe Ql (Resp) COVID 19 RESULT: SARS-CoV-2 (Agent of COVID-19) Not Detected by RT-PCR or equivalent method. This test has been authorized by FDA under an Emergency Use Authorization (EUA). Normal [facility] Comment on above: Performed By: #### 9 4500-6 ####[facility]ATORYCLIA [id number] [address] [place] STAPH AUREUS PCRon 2 S. aureus and MRSA panel MEGAN+probe (Nose) Normal Negative [facility] Comment on above: Order Comment: Speci men Type: SWAB OF INTERNAL NOSEOrdering Facility: [facility] Address: [address] [place] [address] Result Comment: Nega tive for Staphylococcus aureus by PCR.Negative for MRSA by PCR Performed By: #### S APCR ####[facility]ORATORYCLIA [id number] [place] [address] [place] Urinalysis complete panel (U )on 07-08-2021 Bacteria LM.HPF (Urine sed) [#/Area] Few Abnormal None Seen [facility] Comment on above: Order Comment: Speci men Type: URINE SPECIMENOrdering Facility: [facility] Address: [address] [place] [address] Performed By: #### 2 4356-8 ####[facility]ATORYCLIA [id number] [place] [address] [place] Bilirubin Ql (U) Negative Normal Negative [facility] Comment on above: Order Comment: Speci men Type: URINE SPECIMENOrdering Facility: [facility] Address: [address] [place] [address] Performed By: #### 2 4356-8 ####[facility]ORATORYCLIA [id number] [address] Clarity (Unsp spec) Turbid Abnormal Clear [facility] Comment on above: Order Comment: Speci men Type: URINE SPECIMENOrdering Facility: [facility] Address: [address] [place] [address] Performed By: #### 2 4356-8 ####[facility]ATORYCLIA [id number] [address] Color (U) Light Yellow Normal yellow [facility] Comment on above: Order Comment: Speci men Type: URINE SPECIMENOrdering Facility: [facility] Address: [address] [place] [address] Performed By: #### 2 4356-8 ####[facility]ATORYCLIA [id number] [address] Glucose Test strip (U) [Mass/Vol] Negative Normal Negative [facility] Comment on above: Order Comment: Speci men Type: URINE SPECIMENOrdering Facility: [facility] Address: [address] [place] [address] Performed By: #### 2 4356-8 ####[facility]ATORYCLIA [id number] [address] Hemoglobin Ql (U) Negative Normal Negative [facility] Comment on above: Order Comment: Speci men Type: URINE SPECIMENOrdering Facility: [facility] Address: [address] [place] [address] Performed By: #### 2 4356-8 ####[facility]ATORYCLIA [id number] [address] Hyaline casts (Urine sed) [#/Area] 1-3 /LPF Abnormal 0 /LPF [facility] Comment on above: Order Comment: Speci men Type: URINE SPECIMENOrdering Facility: [facility] Address: [address] [place] [address] Performed By: #### 2 4356-8 ####[facility] LABORATORYCLIA [id number] [address] Ketones Ql (U) Negative Normal Negative [facility] Comment on above: Order Comment: Speci men Type: URINE SPECIMENOrdering Facility: [facility] Address: [address] [place] [address] Performed By: #### 2 4356-8 ####[facility] LABORATORYCLIA [id number] [address] Leukocyte esterase Test strip Ql (U) Negative Normal Negative [facility] Comment on above: Order Comment: Speci men Type: URINE SPECIMENOrdering Facility: [facility] Address: [address] [place] [address] Performed By: #### 2 4356-8 ####[facility]ATORYCLIA [id number] [address] [place] Nitrite Ql (U) Negative Normal Negative [facility] Comment on above: Order Comment: Speci men Type: URINE SPECIMENOrdering Facility: [facility] Address: [address] [place] [address] Performed By: #### 2 4356-8 ####[facility]ATORYCLIA [id number] [place] [address] [place] pH (U) 5.0 [pH] Normal 5.0-8.0 [facility] Comment on above: Order Comment: Speci men Type: URINE SPECIMENOrdering Facility: [facility] Address: [address] [place] [address] Performed By: #### 2 4356-8 ####[facility]ATORYCLIA [id number] [address] [place] Protein (U) [Mass/Vol] Negative Normal Negative [facility] Comment on above: Order Comment: Speci men Type: URINE SPECIMENOrdering Facility: [facility] Address: [address] [place] [address] Performed By: #### 2 4356-8 ####[facility]ATORYCLIA [id number] [address] RBC LM.HPF (Urine sed) [#/Area] 11-25 /HPF Abnormal 0-3 /HPF [facility] Comment on above: Order Comment: Speci men Type: URINE SPECIMENOrdering Facility: [facility] Address: [address] [place] [address] Performed By: #### 2 4356-8 ####[facility]ATORYCLIA [id number] [address] Specific gravity (U) [Rel density] 1.018 Normal 1.005-1.030 [facility] Comment on above: Order Comment: Speci men Type: URINE SPECIMENOrdering Facility: [facility] Address: [address] [place] [address] Performed By: #### 2 4356-8 ####[facility]ATORYCLIA [id number] [address] Urobilinogen Ql (U) Normal Normal Negative [facility] Comment on above: Order Comment: Speci men Type: URINE SPECIMENOrdering Facility: [facility] Address: [address] [place] [address] Performed By: #### 2 4356-8 ####[facility]ATORYCLIA [id number] [address] STATES [facility] WBC LM.HPF (Urine sed) [#/Area] /[HPF] Abnormal 0-5 /HPF [facility] Comment on above: Order Comment: Speci men Type: URINE SPECIMENOrdering Facility: [facility] Address: [address] [place] [address] Performed By: #### 2 4356-8 ####[facility]ATORYCLIA [id number] [address] [place] Vancomycin random [Mass/Vol] on 07-08-2021 Vancomycin [Mass/Vol] 31.0 ug/mL High 10.0-20.0 [facility] Comment on above: Order Comment: Speci men Type: BLOOD SPECIMENOrdering Facility: [facility] Address: [address] [place] [address] Result Comment: Refe rence ranges and high/low indicator flags are provided as general guidelines only. The treating physician must determine appropriate target levels/dosing based on the specific clinical situation. Performed By: #### 4 091-5 ####[facility]ATORYCLIA [id number] [place] [address] [place] [facility] XR ABD 2V SUPINE W UPR/DECUB /CTLon 07-08-2021 XR ABD 2V SUPINE W UPR/DECUB/CTL Normal [facility] XR CHEST 1V FRONTALon 2021 XR CHEST 1V FRONTAL Normal [facility] XR CHEST 1V FRONTAL Normal [facility] XR NECK SOFT TISSUE 2V AP/LA Ton 07-08-2021 XR NECK SOFT TISSUE 2V AP/LAT Normal [facility] XR SKULL 2V AP/LATon 022 XR SKULL 2V AP/LAT Normal [facility] HISTORY PHYSICALon HISTORY PHYSICAL HNO ID: [id number] Author: Amy Beltran MD Service: ? Author Type: Physician Type: HANDP Filed: 06/30/2021 6:42 PM Note Text: Connected Care Unit History and Physical Facility: [facility] Level of Care: Skilled Admission Date: June [...] Modafinil for ROSALINO Monitor mental status. Amy Beltarn Prognosis: Rehab potential: Fair I have reviewed [...] regarding the above plan. Total time spent [id number] and/or counseling and coordinating care on the skilled care unit for patient was approximately 45 minutes SUBJECTIVE (HISTORY) Chief Complaint: Confusion, infection, blood clot. Andrew Sifuentes is being seen today [facility] AND management of weakness, tube feed, infected retroperitoneal infection and seizure. HPI: This is a 71 year old male who presents from [facility] with primary admitting diagnosis of [...] CT brain concerning for hydrocephalus. Tip of [employer] shunt was found to be in the [...] Status: Fu (more content not included)... Normal [facility] Basic metabolic 2000 panelon 06-28-2021 Anion gap [Moles/Vol] 7 mmol/L Low 9-18 [facility] Comment on above: Order Comment: Speci men Type: BLOOD SPECIMENOrdering Facility: [facility] Address: [address] [place] [address] Performed By: #### 2 4321-2, 51789-1 ####[facility]ATORYCLIA [id number] [place] [address] [place] Calcium [Mass/Vol] 8.8 mg/dL Normal 8.5-10.2 [facility] Comment on above: Order Comment: Speci men Type: BLOOD SPECIMENOrdering Facility: [facility] Address: [address] [place] [address] Performed By: #### 2 4321-2, ####[facility]ATORYCLIA [id number] [place] [address] [place] Chloride [Moles/Vol] 103 mmol/L Normal 97-105 [facility] Comment on above: Order Comment: Speci men Type: BLOOD SPECIMENOrdering Facility: [facility] Address: [address] [place] [address] Performed By: #### 2 4322, ####[facility]ATORYCLIA [id number] [address] [place] CO2 [Moles/Vol] 28 mmol/L Normal 22-30 [facility] Comment on above: Order Comment: Speci men Type: BLOOD SPECIMENOrdering Facility: [facility] Address: [address] [place] [address] Performed By: #### 2 2, ####[facility]ATORYCLIA [id number] [place] [address] [place] Creatinine [Mass/Vol] 0.57 mg/dL Low 0.73-1.22 [facility] Comment on above: Order Comment: Speci men Type: BLOOD SPECIMENOrdering Facility: [facility] Address: [address] [place] [address] Performed By: #### 2 4322, ####[facility]ATORYCLIA [id number] [place] [address] [place] GFR/1.73 sq M.predicted MDRD (S/P/Bld) [Vol rate/Area] mL/min/{1.73_m2} Normal [facility] Comment on above: Order Comment: Shira feldman Type: BLOOD SPECIMENOrdering Facility: [facility] Address: [address] [place], [place] [phone] Result Comment: >60e GFR (Estimated GFR) Units [...] actual GFR. Performed By: #### 2 4321-2, 18743-6 ####[facility]ATORYCLIA [id number] [place] [address] [place] Glucose [Mass/Vol] 120 mg/dL High 74-99 [facility] Comment on above: Order Comment: Shira feldman Type: BLOOD SPECIMENOrdering Facility: [facility] Address: [address] [place] [phone] Result Comment: The [place] Diabetes Association (ADA) provides guidance for cutoff [...] Standards of Medical Care in Diabetes 2016, [place] [employer]. Diabetes Care. 2016.39(Suppl 1). Performed By: #### 2 4321-2, 18185-4 ####[facility]ATORYCLIA [id number] [place] [address] [place] Potassium [Moles/Vol] 3.8 mmol/L Normal 3.7-5.1 [facility] Comment on above: Order Comment: Speci men Type: BLOOD SPECIMENOrdering Facility: [facility] Address: [address] [place] [address] Performed By: #### 2 4321-2, ####[facility] LABORATORYCLIA [id number] [address] STATES OF [facility] Sodium [Moles/Vol] 138 mmol/L Normal 136-144 [facility] Comment on above: Order Comment: Speci men Type: BLOOD SPECIMENOrdering Facility: [facility] Address: [address] [place] [address] Performed By: #### 2 4321-2, ####[facility]ATORYCLIA [id number] [address] STATES [facility] Urea nitrogen [Mass/Vol] 24 mg/dL Normal 9-24 [facility] Comment on above: Order Comment: Speci men Type: BLOOD SPECIMENOrdering Facility: [facility] Address: [address] [place] [address] Performed By: #### 2 432-2, ####[facility]ATORYCLIA [id number] [address] OF [facility] CASE MANAGEMon 06-28-2021 CASE MANAGEM Normal [facility] CBC panel Auto (Bld)on 06-28 Erythrocyte distribution width (RBC) [Ratio] 15.6 % High 11.5-15.0 [facility] Comment on above: Order Comment: Speci men Type: BLOOD SPECIMENOrdering Facility: [facility] Address: [address] [place] [address] Performed By: #### 5 8410-2 ####[facility]ATORYCLIA [id number] [address] STATES [facility] Hematocrit (Bld) [Volume fraction] 30.5 % Low 39.0-51.0 [facility] Comment on above: Order Comment: Speci men Type: BLOOD SPECIMENOrdering Facility: [facility] Address: [address] [place] [address] Performed By: #### 5 8410-2 ####[facility]ATORYCLIA [id number] [address] Hemoglobin (Bld) [Mass/Vol] 9.4 g/dL Low 13.0-17.0 [facility] Comment on above: Order Comment: Speci men Type: BLOOD SPECIMENOrdering Facility: [facility] Address: [address] [place] [address] Performed By: #### 5 8410-2 ####[facility]ATORYCLIA [id number] [address] MCH (RBC) [Entitic mass] 27.8 pg Normal 26.0-34.0 [facility] Comment on above: Order Comment: Speci men Type: BLOOD SPECIMENOrdering Facility: [facility] Address: [address] [place] [address] Performed By: #### 5 8410-2 ####[facility]ATORYCLIA [id number] [address] MCHC (RBC) [Mass/Vol] 30.8 g/dL Normal 30.5-36.0 [facility] Comment on above: Order Comment: Speci men Type: BLOOD SPECIMENOrdering Facility: [facility] Address: [address] [place] [address] Performed By: #### 5 8410-2 ####[facility]ATORYCLIA [id number] [address] MCV (RBC) [Entitic vol] 90.2 fL Normal 80.0-100.0 [facility] Comment on above: Order Comment: Speci men Type: BLOOD SPECIMENOrdering Facility: [facility] Address: [address] [place] [address] Performed By: #### 5 8410-2 ####[facility]ATORYCLIA [id number] [address] Nucleated RBC (Bld) [#/Vol] 10*3/uL Normal <0.01 [facility] Comment on above: Order Comment: Speci men Type: BLOOD SPECIMENOrdering Facility: [facility] Address: [address] [place] [address] Performed By: #### 5 8410-2 ####[facility]ORATORYCLIA [id number] [address] [place] Platelet mean volume (Bld) [Entitic vol] 9.9 fL Normal 9.0-12.7 [facility] Comment on above: Order Comment: Speci men Type: BLOOD SPECIMENOrdering Facility: [facility] Address: [address] [place] [address] Performed By: #### 5 8410-2 ####[facility]ORATORYCLIA [id number] [address] [place] Platelets (Bld) [#/Vol] 333 10*3/uL Normal 150-400 [facility] Comment on above: Order Comment: Speci men Type: BLOOD SPECIMENOrdering Facility: [facility] Address: [address] [place] [address] Performed By: #### 5 8410-2 ####[facility]ORATORYCLIA [id number] [place] [address] [place] RBC (Bld) [#/Vol] 3.38 10*6/uL Low 4.20-6.00 [facility] Comment on above: Order Comment: Speci men Type: BLOOD SPECIMENOrdering Facility: [facility] Address: [address] [place], [place] [address] Performed By: #### 5 8410-2 ####[facility]ORATORYCLIA [id number] [address] [place] WBC (Bld) [#/Vol] 9.71 10*3/uL Normal 3.70-11.00 [facility] Comment on above: Order Comment: Speci men Type: BLOOD SPECIMENOrdering Facility: [facility] Address: [address] [place] [address] Performed By: #### 5 8410-2 ####[facility]ORATORYCLIA [id number] [address] [place] CNDSon 06-28-2021 CNDS Normal [facility] CONSULT PROGon 06-28-2021 CONSULT PROG Normal [facility] Magnesium SerPl-mCncon 06-28 Magnesium [Mass/Vol] 2.2 mg/dL Normal 1.7-2.3 [facility] Comment on above: Order Comment: Speci men Type: BLOOD SPECIMENOrdering Facility: [facility] Address: [address] [place] [address] Performed By: #### 2 4321-2, 86585-4 ####[facility]ATORYCLIA [id number] [address] STATES OF [facility] Vancomycin random [Mass/Vol] on 06-28-2021 Vancomycin [Mass/Vol] 23.0 ug/mL High 10.0-20.0 [facility] Comment on above: Order Comment: Speci men Type: BLOOD SPECIMENOrdering Facility: [facility] Address: [address] [place] [address] Result Comment: Refe rence ranges and high/low indicator flags are provided as general guidelines only. The treating physician must determine appropriate target levels/dosing based on the specific clinical situation. Performed By: #### 4 091-5 ####[facility]ATORYCLIA [id number] [address] [place] ALLIED HEALTHon 06-27-2021 ALLIED HEALTH Normal [facility] Basic metabolic 2000 panelon 06-27-2021 Anion gap [Moles/Vol] 10 mmol/L Normal 9-18 [facility] Comment on above: Order Comment: Speci men Type: BLOOD SPECIMENOrdering Facility: [facility] Address: [address] [place] [address] Performed By: #### 2 4321-2, 90952-6 ####[facility]ATORYCLIA [id number] [address] [place] Calcium [Mass/Vol] 8.8 mg/dL Normal 8.5-10.2 [facility] Comment on above: Order Comment: Speci men Type: BLOOD SPECIMENOrdering Facility: [facility] Address: [address] [place] [address] Performed By: #### 2 4321-2, ####[facility]ATORYCLIA [id number] [place] [address] [place] Chloride [Moles/Vol] 104 mmol/L Normal 97-105 [facility] Comment on above: Order Comment: Speci men Type: BLOOD SPECIMENOrdering Facility: [facility] Address: [address] [place] [address] Performed By: #### 2 4320-2, ####[facility]ATORYCLIA [id number] [address] STATES OF [facility] CO2 [Moles/Vol] 26 mmol/L Normal 22-30 [facility] Comment on above: Order Comment: Speci men Type: BLOOD SPECIMENOrdering Facility: [facility] Address: [address] [place] [address] Performed By: #### 2 4320-2, ####[facility]ORYCLIA [id number] [address] [place] Creatinine [Mass/Vol] 0.57 mg/dL Low 0.73-1.22 [facility] Comment on above: Order Comment: Speci men Type: BLOOD SPECIMENOrdering Facility: [facility] Address: [address] [place] [address] Performed By: #### 2 4321-2, ####[facility]ATORYCLIA [id number] [place] [address] [place] GFR/1.73 sq M.predicted MDRD (S/P/Bld) [Vol rate/Area] mL/min/{1.73_m2} Normal [facility] Comment on above: Order Comment: Speci men Type: BLOOD SPECIMENOrdering Facility: [facility] Address: [address] [id number] Result Comment: >60e GFR (Estimated GFR) Units [...] actual GFR. Performed By: #### 2 4321-2, 02162-0 ####[facility]CLIA [id number] [place] [address] [place] Glucose [Mass/Vol] 133 mg/dL High 74-99 [facility] Comment on above: Order Comment: Shira feldman Type: BLOOD SPECIMENOrdering Facility: [facility] Address: [address] [place] [address] Result Comment: The [employer] (ADA) provides guidance for cutoff [...] Standards of Medical Care in Diabetes 2016, [employer]. Diabetes Care. 2016.39(Suppl 1). Performed By: #### 2 4321-2, 52808-9 ####[facility]ORYCLIA [id number] [place] [address] [place] Potassium [Moles/Vol] 4.2 mmol/L Normal 3.7-5.1 [facility] Comment on above: Order Comment: Shira feldman Type: BLOOD SPECIMENOrdering Facility: [facility] Address: [address] [address] Performed By: #### 2 4321-2, ####[facility]ORYCLIA [id number] [address] Sodium [Moles/Vol] 140 mmol/L Normal 136-144 [facility] Comment on above: Order Comment: Speci men Type: BLOOD SPECIMENOrdering Facility: [facility] Address: [address] [place] [address] Performed By: #### 2 432-2, ####[facility]ATORYCLIA [id number] [address] STATES [facility] Urea nitrogen [Mass/Vol] 24 mg/dL Normal 9-24 [facility] Comment on above: Order Comment: Speci men Type: BLOOD SPECIMENOrdering Facility: [facility] Address: [address] [place] [address] Performed By: #### 2 2, ####[facility]ORYCLIA [id number] [address] STATES [facility] CASE MANAGEMon 06-27-2021 CASE MANAGEM Normal [facility] CBC panel Auto (Bld)on 06-27 Erythrocyte distribution width (RBC) [Ratio] 15.8 % High 11.5-15.0 [facility] Comment on above: Order Comment: Speci men Type: BLOOD SPECIMENOrdering Facility: [facility] Address: [address] [address] Performed By: #### 5 8410-2 ####[facility]ATORYCLIA [id number] [address] Hematocrit (Bld) [Volume fraction] 31.4 % Low 39.0-51.0 [facility] Comment on above: Order Comment: Speci men Type: BLOOD SPECIMENOrdering Facility: [facility] Address: [address] [place] [address] Performed By: #### 5 8410-2 ####[facility]ORYCLIA [id number] [address] STATES OF [facility] Hemoglobin (Bld) [Mass/Vol] 9.3 g/dL Low 13.0-17.0 [facility] Comment on above: Order Comment: Speci men Type: BLOOD SPECIMENOrdering Facility: [facility] Address: [address] [place] [address] Performed By: #### 5 8410-2 ####[facility]ATORYCLIA [id number] [address] MCH (RBC) [Entitic mass] 27.0 pg Normal 26.0-34.0 [facility] Comment on above: Order Comment: Speci men Type: BLOOD SPECIMENOrdering Facility: [facility] Address: [address] [place] [address] Performed By: #### 5 8410-2 ####[facility]ORYCLIA [id number] [address] MCHC (RBC) [Mass/Vol] 29.6 g/dL Low 30.5-36.0 [facility] Comment on above: Order Comment: Speci men Type: BLOOD SPECIMENOrdering Facility: [facility] Address: [address] [place] [address] Performed By: #### 5 8410-2 ####[facility]ORYCLIA [id number] [address] MCV (RBC) [Entitic vol] 91.3 fL Normal 80.0-100.0 [facility] Comment on above: Order Comment: Speci men Type: BLOOD SPECIMENOrdering Facility: [facility] Address: [address] [place] [address] Performed By: #### 5 8410-2 ####[facility]ORYCLIA [id number] [address] Nucleated RBC (Bld) [#/Vol] 10*3/uL Normal <0.01 [facility] Comment on above: Order Comment: Speci men Type: BLOOD SPECIMENOrdering Facility: [facility] Address: [address] [place] [address] Performed By: #### 5 8410-2 ####[facility]ORYCLIA [id number] [address] Platelet mean volume (Bld) [Entitic vol] 10.3 fL Normal 9.0-12.7 [facility] Comment on above: Order Comment: Speci men Type: BLOOD SPECIMENOrdering Facility: [facility] Address: [address] [place] [address] Performed By: #### 5 8410-2 ####[facility]ATORYCLIA [id number] [address] [place] Platelets (Bld) [#/Vol] 359 10*3/uL Normal 150-400 [facility] Comment on above: Order Comment: Speci men Type: BLOOD SPECIMENOrdering Facility: [facility] Address: [address] [place] [address] Performed By: #### 5 8410-2 ####[facility]ATORYCLIA [id number] [address] [place] RBC (Bld) [#/Vol] 3.44 10*6/uL Low 4.20-6.00 [facility] Comment on above: Order Comment: Speci men Type: BLOOD SPECIMENOrdering Facility: [facility] Address: [address] [place] [address] Performed By: #### 5 8410-2 ####[facility]ORYCLIA [id number] [address] [place] WBC (Bld) [#/Vol] 10.73 10*3/uL Normal 3.70-11.00 [facility] Comment on above: Order Comment: Speci men Type: BLOOD SPECIMENOrdering Facility: [facility] Address: [address] [place] [address] Performed By: #### 5 8410-2 ####[facility]ORYCLIA [id number] [place] [address] [place] Magnesium SerPl-mCncon 06-27 Magnesium [Mass/Vol] 2.2 mg/dL Normal 1.7-2.3 [facility] Comment on above: Order Comment: Speci men Type: BLOOD SPECIMENOrdering Facility: [facility] Address: [address] [place] [address] Performed By: #### 2 4321-2, 86338-7 ####[facility]ATORYCLIA [id number] [place] [address] [place] NT-proBNP SerPl-mCncon 06-27 Natriuretic peptide.B prohormone N-Terminal [Mass/Vol] 184 pg/mL High <125 [facility] Comment on above: Order Comment: Speci men Type: BLOOD SPECIMENOrdering Facility: [facility] Address: [address] [place] [address] Performed By: #### 3 3762-6 ####[facility]ATORYCLIA [id number] [place] [address] [place] NUTRITIONon 06-27-2021 NUTRITION Normal [facility] THERAPY NTon 06-27-2021 THERAPY NT Normal [facility] THERAPY NT Normal [facility] XR CHEST 1V FRONTALon 2021 XR CHEST 1V FRONTAL Normal [facility] Basic metabolic 2000 panelon 06-26-2021 Anion gap [Moles/Vol] 9 mmol/L Normal 9-18 [facility] Comment on above: Order Comment: Speci men Type: BLOOD SPECIMENOrdering Facility: [facility] Address: [address] [place] [place] [address] Performed By: #### 1 9123-9, 55956-2 ####[facility]ATORYCLIA [id number] [place] [address] [place] Calcium [Mass/Vol] 8.7 mg/dL Normal 8.5-10.2 [facility] Comment on above: Order Comment: Speci men Type: BLOOD SPECIMENOrdering Facility: [facility] Address: [address] [address] Performed By: #### 1 9123-9, 40868-7 ####[facility]ATORYCLIA [id number] [place] [address] [place] Chloride [Moles/Vol] 105 mmol/L Normal 97-105 [facility] Comment on above: Order Comment: Speci men Type: BLOOD SPECIMENOrdering Facility: [facility] Address: [address] [place] [address] Performed By: #### 1 9123-9, 29986-1 ####[facility]ATORYCLIA [id number] [place] [address] [place] CO2 [Moles/Vol] 26 mmol/L Normal 22-30 [facility] Comment on above: Order Comment: Speci men Type: BLOOD SPECIMENOrdering Facility: [facility] Address: [address] [place] [address] Performed By: #### 1 9123-9, 37331-1 ####[facility]ATORYCLIA [id number] [place] [address] [place] Creatinine [Mass/Vol] 0.56 mg/dL Low 0.73-1.22 [facility] Comment on above: Order Comment: Speci men Type: BLOOD SPECIMENOrdering Facility: [facility] Address: [address] [place] [address] Performed By: #### 1 9123-9, 92434-8 ####[facility]ORYCLIA [id number] [place] [address] [place] GFR/1.73 sq M.predicted MDRD (S/P/Bld) [Vol rate/Area] mL/min/{1.73_m2} Normal [facility] Comment on above: Order Comment: Speci men Type: BLOOD SPECIMENOrdering Facility: [facility] Address: [address] [place] [address] Result Comment: >60e GFR (Estimated GFR) Units [...] actual GFR. Performed By: #### 1 9123-9, 74163-1 ####[facility]ATORYCLIA [id number] [place] [address] [place] Glucose [Mass/Vol] 134 mg/dL High 74-99 [facility] Comment on above: Order Comment: Shira feldman Type: BLOOD SPECIMENOrdering Facility: [facility] Address: [address] [place], [place] [address] Result Comment: The [employer] (ADA) provides guidance for cutoff [...] Standards of Medical Care in Diabetes 2016, [employer]. Diabetes Care. 2016.39(Suppl 1). Performed By: #### 1 9123-9, 72323-5 ####[facility]ORYCLIA [id number] [place] [address] [place] Potassium [Moles/Vol] 3.8 mmol/L Normal 3.7-5.1 [facility] Comment on above: Order Comment: Shira feldman Type: BLOOD SPECIMENOrdering Facility: [facility] Address: [address] [place], [place] [id number] Performed By: #### 1 9123-9, 45682-2 ####[facility]ORYCLIA [id number] [address] STATES [facility] Sodium [Moles/Vol] 140 mmol/L Normal 136-144 [facility] Comment on above: Order Comment: Speci men Type: BLOOD SPECIMENOrdering Facility: [facility] Address: [address] [place] [address] Performed By: #### 1 9123-9, 94225-5 ####[facility]ORYCLIA [id number] [address] STATES [facility] Urea nitrogen [Mass/Vol] 24 mg/dL Normal 9-24 [facility] Comment on above: Order Comment: Speci men Type: BLOOD SPECIMENOrdering Facility: [facility] Address: [address] [place] [address] Performed By: #### 1 9123-9, 64592-0 ####[facility]ATORYCLIA [id number] [address] CBC panel Auto (Bld)on 06-26 Erythrocyte distribution width (RBC) [Ratio] 15.9 % High 11.5-15.0 [facility] Comment on above: Order Comment: Speci men Type: BLOOD SPECIMENOrdering Facility: [facility] Address: [address] [place] [address] Performed By: #### 5 8410-2 ####[facility]ATORYCLIA [id number] [address] STATES OF [facility] Hematocrit (Bld) [Volume fraction] 29.8 % Low 39.0-51.0 [facility] Comment on above: Order Comment: Speci men Type: BLOOD SPECIMENOrdering Facility: [facility] Address: [address] [place] [address] Performed By: #### 5 8410-2 ####[facility]ORYCLIA [id number] [address] [place] Hemoglobin (Bld) [Mass/Vol] 9.1 g/dL Low 13.0-17.0 [facility] Comment on above: Order Comment: Speci men Type: BLOOD SPECIMENOrdering Facility: [facility] Address: [address] [place] [address] Performed By: #### 5 8410-2 ####[facility]ATORYCLIA [id number] [address] MCH (RBC) [Entitic mass] 27.8 pg Normal 26.0-34.0 [facility] Comment on above: Order Comment: Speci men Type: BLOOD SPECIMENOrdering Facility: [facility] Address: [address] [place] [address] Performed By: #### 5 8410-2 ####[facility]ATORYCLIA [id number] [address] MCHC (RBC) [Mass/Vol] 30.5 g/dL Normal 30.5-36.0 [facility] Comment on above: Order Comment: Speci men Type: BLOOD SPECIMENOrdering Facility: [facility] Address: [address] [place] [address] Performed By: #### 5 8410-2 ####[facility]ATORYCLIA [id number] [address] MCV (RBC) [Entitic vol] 91.1 fL Normal 80.0-100.0 [facility] Comment on above: Order Comment: Speci men Type: BLOOD SPECIMENOrdering Facility: [facility] Address: [address] [place] [address] Performed By: #### 5 8410-2 ####[facility]ATORYCLIA [id number] [address] Nucleated RBC (Bld) [#/Vol] 10*3/uL Normal <0.01 [facility] Comment on above: Order Comment: Speci men Type: BLOOD SPECIMENOrdering Facility: [facility] Address: [address] [place] [address] Performed By: #### 5 8410-2 ####[facility]ORYCLIA [id number] [address] Platelet mean volume (Bld) [Entitic vol] 10.3 fL Normal 9.0-12.7 [facility] Comment on above: Order Comment: Speci men Type: BLOOD SPECIMENOrdering Facility: [facility] Address: [address] [place] [address] Performed By: #### 5 8410-2 ####[facility]ORYCLIA [id number] [address] [place] Platelets (Bld) [#/Vol] 336 10*3/uL Normal 150-400 [facility] Comment on above: Order Comment: Speci men Type: BLOOD SPECIMENOrdering Facility: [facility] Address: [address] [place] [address] Performed By: #### 5 8410-2 ####[facility]ATORYCLIA [id number] [address] STATES OF [facility] RBC (Bld) [#/Vol] 3.27 10*6/uL Low 4.20-6.00 [facility] Comment on above: Order Comment: Speci men Type: BLOOD SPECIMENOrdering Facility: [facility] Address: [address] [place] [address] Performed By: #### 5 8410-2 ####[facility]ORYCLIA [id number] [address] [place] WBC (Bld) [#/Vol] 9.14 10*3/uL Normal 3.70-11.00 [facility] Comment on above: Order Comment: Speci men Type: BLOOD SPECIMENOrdering Facility: [facility] Address: [address] [place] [address] Performed By: #### 5 8410-2 ####[facility]ORYCLIA [id number] [address] OF [facility] CONSULT PROGon 06-26-2021 CONSULT PROG Normal [facility] Magnesium SerPl-mCncon 06-26 Magnesium [Mass/Vol] 2.2 mg/dL Normal 1.7-2.3 [facility] Comment on above: Order Comment: Speci men Type: BLOOD SPECIMENOrdering Facility: [facility] Address: [address] [place] [address] Performed By: #### 1 9123-9, 93351-5 ####[facility]ATORYCLIA [id number] [place] [address] [place] NURSING PROGon 06-26-2021 NURSING PROG Normal [facility] NURSING PROG Normal [facility] Basic metabolic 2000 panelon 06-25-2021 Anion gap [Moles/Vol] 8 mmol/L Low 9-18 [facility] Comment on above: Order Comment: Speci men Type: BLOOD SPECIMENOrdering Facility: [facility] Address: [address] [place] [address] Performed By: #### 2 4321-2, ####[facility]ORYCLIA [id number] [place] [address] [place] Calcium [Mass/Vol] 8.8 mg/dL Normal 8.5-10.2 [facility] Comment on above: Order Comment: Speci men Type: BLOOD SPECIMENOrdering Facility: [facility] Address: [address] [place] [address] Performed By: #### 2 4321-2, ####[facility]ORYCLIA [id number] [place] [address] [place] Chloride [Moles/Vol] 105 mmol/L Normal 97-105 [facility] Comment on above: Order Comment: Speci men Type: BLOOD SPECIMENOrdering Facility: [facility] Address: [address] [place] [address] Performed By: #### 2 4321-2, ####[facility]ORYCLIA [id number] [place] [address] [place] CO2 [Moles/Vol] 27 mmol/L Normal 22-30 [facility] Comment on above: Order Comment: Speci men Type: BLOOD SPECIMENOrdering Facility: [facility] Address: [address] Performed By: #### 2 432-, ####[facility]ATORYCLIA [id number] [place] [address] [place] Creatinine [Mass/Vol] 0.59 mg/dL Low 0.73-1.22 [facility] Comment on above: Order Comment: Shira feldman Type: BLOOD SPECIMENOrdering Facility: [facility] Address: [address] [place] [address] Performed By: #### 2 43205-08, ####[facility]ENTERCLIA [id number] [place] [address] [place] GFR/1.73 sq M.predicted MDRD (S/P/Bld) [Vol rate/Area] mL/min/{1.73_m2} Normal [facility] Comment on above: Order Comment: Shira feldman Type: BLOOD SPECIMENOrdering Facility: [facility] Address: [address] [place] [place] [address] Result Comment: >60e GFR (Estimated GFR) Units [...] actual GFR. Performed By: #### 2 432-, ####[facility]ATORYCLIA [id number] [address] [place] Glucose [Mass/Vol] 132 mg/dL High 74-99 [facility] Comment on above: Order Comment: Shira feldman Type: BLOOD SPECIMENOrdering Facility: [facility] Address: [address] [address] Result Comment: The [employer] (ADA) provides guidance for cutoff [...] Standards of Medical Care in Diabetes 2016, [employer]. Diabetes Care. 2016.39(Suppl 1). Performed By: #### 2 ####[facility]ATORYCLIA [id number] [place] [address] [place] Potassium [Moles/Vol] 3.9 mmol/L Normal 3.7-5.1 [facility] Comment on above: Order Comment: Speci men Type: BLOOD SPECIMENOrdering Facility: [facility] Address: [address] [place] [address] Performed By: #### 2 ####[facility]ATORYCLIA [id number] [place] [address] [place] Sodium [Moles/Vol] 140 mmol/L Normal 136-144 [facility] Comment on above: Order Comment: Speci men Type: BLOOD SPECIMENOrdering Facility: [facility] Address: [address] [address] Performed By: #### 2 ####[facility]ATORYCLIA [id number] [place] [address] [place] Urea nitrogen [Mass/Vol] 24 mg/dL Normal 9-24 [facility] Comment on above: Order Comment: Speci men Type: BLOOD SPECIMENOrdering Facility: [facility] Address: [address] Performed By: #### 2 ####[facility]ATORYCLIA [id number] [address] [place] CASE MANAGEMon 06-25-2021 CASE MANAGEM Normal [facility] CBC panel Auto (Bld)on 06-25 Erythrocyte distribution width (RBC) [Ratio] 15.9 % High 11.5-15.0 [facility] Comment on above: Order Comment: Speci men Type: BLOOD SPECIMENOrdering Facility: [facility] Address: [address] [place] [address] Performed By: #### 5 8410-2 ####[facility]ATORYCLIA [id number] [address] Hematocrit (Bld) [Volume fraction] 31.0 % Low 39.0-51.0 [facility] Comment on above: Order Comment: Speci men Type: BLOOD SPECIMENOrdering Facility: [facility] Address: [address] [place] [address] Performed By: #### 5 8410-2 ####[facility]ATORYCLIA [id number] [address] [place] Hemoglobin (Bld) [Mass/Vol] 9.4 g/dL Low 13.0-17.0 [facility] Comment on above: Order Comment: Speci men Type: BLOOD SPECIMENOrdering Facility: [facility] Address: [address] [place] [address] Performed By: #### 5 8410-2 ####[facility]ATORYCLIA [id number] [address] STATES [facility] MCH (RBC) [Entitic mass] 28.1 pg Normal 26.0-34.0 [facility] Comment on above: Order Comment: Speci men Type: BLOOD SPECIMENOrdering Facility: [facility] Address: [address] [place] [address] Performed By: #### 5 8410-2 ####[facility]ATORYCLIA [id number] [address] [place] MCHC (RBC) [Mass/Vol] 30.3 g/dL Low 30.5-36.0 [facility] Comment on above: Order Comment: Speci men Type: BLOOD SPECIMENOrdering Facility: [facility] Address: [address] [place] [address] Performed By: #### 5 8410-2 ####[facility]ATORYCLIA [id number] [address] STATES OF [facility] MCV (RBC) [Entitic vol] 92.5 fL Normal 80.0-100.0 [facility] Comment on above: Order Comment: Speci men Type: BLOOD SPECIMENOrdering Facility: [facility] Address: [address] [place] [address] Performed By: #### 5 8410-2 ####[facility] LABORATORYCLIA [id number] [address] [place] Nucleated RBC (Bld) [#/Vol] 10*3/uL Normal <0.01 [facility] Comment on above: Order Comment: Speci men Type: BLOOD SPECIMENOrdering Facility: [facility] Address: [address] [place] [address] Performed By: #### 5 8410-2 ####[facility] LABORATORYCLIA [id number] [address] [address] [place] Platelet mean volume (Bld) [Entitic vol] 10.5 fL Normal 9.0-12.7 [facility] Comment on above: Order Comment: Speci men Type: BLOOD SPECIMENOrdering Facility: [facility] Address: [address] [place] [place] [address] Performed By: #### 5 8410-2 ####[facility]ATORYCLIA [id number] [address] [place] Platelets (Bld) [#/Vol] 311 10*3/uL Normal 150-400 [facility] Comment on above: Order Comment: Speci men Type: BLOOD SPECIMENOrdering Facility: [facility] Address: [address] [place] [address] Performed By: #### 5 8410-2 ####[facility]ATORYCLIA [id number] [address] STATES OF [facility] RBC (Bld) [#/Vol] 3.35 10*6/uL Low 4.20-6.00 [facility] Comment on above: Order Comment: Speci men Type: BLOOD SPECIMENOrdering Facility: [facility] Address: [address] [place] [address] Performed By: #### 5 8410-2 ####[facility]ATORYCLIA [id number] [address] OF [facility] WBC (Bld) [#/Vol] 9.57 10*3/uL Normal 3.70-11.00 [facility] Comment on above: Order Comment: Speci men Type: BLOOD SPECIMENOrdering Facility: [facility] Address: [address] [place] [address] Performed By: #### 5 8410-2 ####[facility]ORYCLIA [id number] [address] [place] Magnesium SerPl-mCncon 06-25 Magnesium [Mass/Vol] 2.4 mg/dL High 1.7-2.3 [facility] Comment on above: Order Comment: Speci men Type: BLOOD SPECIMENOrdering Facility: [facility] Address: [address] [place] [address] Performed By: #### 2 4321-2, 59746-1 ####[facility]ATORYCLIA [id number] [address] [place] Basic metabolic 2000 panelon 06-24-2021 Anion gap [Moles/Vol] 9 mmol/L Normal 9-18 [facility] Comment on above: Order Comment: Speci men Type: BLOOD SPECIMENOrdering Facility: [facility] Address: [address] [place] [address] Performed By: #### 1 9123-9, 76067-6 ####[facility]ATORYCLIA [id number] [place] [address] [place] Calcium [Mass/Vol] 8.6 mg/dL Normal 8.5-10.2 [facility] Comment on above: Order Comment: Speci men Type: BLOOD SPECIMENOrdering Facility: [facility] Address: [address] [place] [address] Performed By: #### 1 9123-9, 79739-7 ####[facility]ATORYCLIA [id number] [place] [address] [place] Chloride [Moles/Vol] 103 mmol/L Normal 97-105 [facility] Comment on above: Order Comment: Speci men Type: BLOOD SPECIMENOrdering Facility: [facility] Address: [address] [place] [address] Performed By: #### 1 9123-9, 51017-3 ####[facility]ORYCLIA [id number] [address] [place] CO2 [Moles/Vol] 26 mmol/L Normal 22-30 [facility] Comment on above: Order Comment: Speci men Type: BLOOD SPECIMENOrdering Facility: [facility] Address: [address] [place] [address] Performed By: #### 1 9123-9, 98925-3 ####[facility]ATORYCLIA [id number] [place] [address] [place] Creatinine [Mass/Vol] 0.60 mg/dL Low 0.73-1.22 [facility] Comment on above: Order Comment: Speci men Type: BLOOD SPECIMENOrdering Facility: [facility] Address: [address] [place] [address] Performed By: #### 1 9123-9, 25036-6 ####[facility]ATORYCLIA [id number] [address] [place] GFR/1.73 sq M.predicted MDRD (S/P/Bld) [Vol rate/Area] mL/min/{1.73_m2} Normal [facility] Comment on above: Order Comment: Speci men Type: BLOOD SPECIMENOrdering Facility: [facility] Address: [address] [place], [place] [address] Result Comment: >60e GFR (Estimated GFR) Units [...] actual GFR. Performed By: #### 1 9123-9, 55844-3 ####[facility]ENTERCLIA [id number] [place] [address] [place] Glucose [Mass/Vol] 126 mg/dL High 74-99 [facility] Comment on above: Order Comment: Sihra feldman Type: BLOOD SPECIMENOrdering Facility: [facility] Address: [address] [place], [place] [address] Result Comment: The [employer] (ADA) provides guidance for cutoff [...] Standards of Medical Care in Diabetes 2016, [employer]. Diabetes Care. 2016.39(Suppl 1). Performed By: #### 1 9123-9, 74770-2 ####[facility]ATORYCLIA [id number] [place] [address] [place] Potassium [Moles/Vol] 3.9 mmol/L Normal 3.7-5.1 [facility] Comment on above: Order Comment: Speci men Type: BLOOD SPECIMENOrdering Facility: [facility] Address: [address] [place] [place] [address] Performed By: #### 1 9123-9, 43375-5 ####[facility]ATORYCLIA [id number] [address] STATES OF [facility] Sodium [Moles/Vol] 138 mmol/L Normal 136-144 [facility] Comment on above: Order Comment: Speci men Type: BLOOD SPECIMENOrdering Facility: [facility] Address: [address] [place] [address] Performed By: #### 1 9123-9, 26305-2 ####[facility]ATORYCLIA [id number] [address] [place] Urea nitrogen [Mass/Vol] 24 mg/dL Normal 9-24 [facility] Comment on above: Order Comment: Speci men Type: BLOOD SPECIMENOrdering Facility: [facility] Address: [address] [place] [address] Performed By: #### 1 9123-9, 24202-6 ####[facility]ATORYCLIA [id number] [address] OF [facility] CASE MANAGEMon 06-24-2021 CASE MANAGEM Normal [facility] CASE MANAGEM Normal [facility] CASE MANAGEM Normal [facility] CBC panel Auto (Bld)on 06-24 Erythrocyte distribution width (RBC) [Ratio] 16.1 % High 11.5-15.0 [facility] Comment on above: Order Comment: Speci men Type: BLOOD SPECIMENOrdering Facility: [facility] Address: [address] [place] [address] Performed By: #### 5 8410-2 ####[facility]ATORYCLIA [id number] [address] [place] Hematocrit (Bld) [Volume fraction] 31.7 % Low 39.0-51.0 [facility] Comment on above: Order Comment: Speci men Type: BLOOD SPECIMENOrdering Facility: [facility] Address: [address] [place] [address] Performed By: #### 5 8410-2 ####[facility]ATORYCLIA [id number] [address] Hemoglobin (Bld) [Mass/Vol] 9.7 g/dL Low 13.0-17.0 [facility] Comment on above: Order Comment: Speci men Type: BLOOD SPECIMENOrdering Facility: [facility] Address: [address] [place] [address] Performed By: #### 5 8410-2 ####[facility]ATORYCLIA [id number] [address] MCH (RBC) [Entitic mass] 28.0 pg Normal 26.0-34.0 [facility] Comment on above: Order Comment: Speci men Type: BLOOD SPECIMENOrdering Facility: [facility] Address: [address] [place] [address] Performed By: #### 5 8410-2 ####[facility]ATORYCLIA [id number] [address] MCHC (RBC) [Mass/Vol] 30.6 g/dL Normal 30.5-36.0 [facility] Comment on above: Order Comment: Speci men Type: BLOOD SPECIMENOrdering Facility: [facility] Address: [address] [place] [address] Performed By: #### 5 8410-2 ####[facility]ORYCLIA [id number] [address] STATES [facility] MCV (RBC) [Entitic vol] 91.4 fL Normal 80.0-100.0 [facility] Comment on above: Order Comment: Speci men Type: BLOOD SPECIMENOrdering Facility: [facility] Address: [address] [place] [address] Performed By: #### 5 8410-2 ####[facility]ATORYCLIA [id number] [address] Nucleated RBC (Bld) [#/Vol] 10*3/uL Normal <0.01 [facility] Comment on above: Order Comment: Speci men Type: BLOOD SPECIMENOrdering Facility: [facility] Address: [address] [place] [address] Performed By: #### 5 8410-2 ####[facility]ATORYCLIA [id number] [place] [address] [place] Platelet mean volume (Bld) [Entitic vol] 11.0 fL Normal 9.0-12.7 [facility] Comment on above: Order Comment: Speci men Type: BLOOD SPECIMENOrdering Facility: [facility] Address: [address] [place] [address] Performed By: #### 5 8410-2 ####[facility]ATORYCLIA [id number] [place] [address] [place] Platelets (Bld) [#/Vol] 358 10*3/uL Normal 150-400 [facility] Comment on above: Order Comment: Speci men Type: BLOOD SPECIMENOrdering Facility: [facility] Address: [address] [place] [address] Performed By: #### 5 8410-2 ####[facility]ATORYCLIA [id number] [place] [address] [place] RBC (Bld) [#/Vol] 3.47 10*6/uL Low 4.20-6.00 [facility] Comment on above: Order Comment: Speci men Type: BLOOD SPECIMENOrdering Facility: [facility] Address: [address] [place] [address] Performed By: #### 5 8410-2 ####[facility]ATORYCLIA [id number] [place] [address] [place] WBC (Bld) [#/Vol] 10.07 10*3/uL Normal 3.70-11.00 [facility] Comment on above: Order Comment: Speci men Type: BLOOD SPECIMENOrdering Facility: [facility] Address: [address] [place] [address] Performed By: #### 5 8410-2 ####[facility]ATORYCLIA [id number] [place] [address] [place] Magnesium SerPl-mCncon 06-24 Magnesium [Mass/Vol] 2.3 mg/dL Normal 1.7-2.3 [facility] Comment on above: Order Comment: Speci men Type: BLOOD SPECIMENOrdering Facility: [facility] Address: [address] [place] [address] Performed By: #### 1 9123-9, 84831-6 ####[facility]ATORYCLIA [id number] [place] [address] [place] ALLIED HEALTHon 06-23-2021 ALLIED HEALTH Normal [facility] Basic metabolic 2000 panelon 06-23-2021 Anion gap [Moles/Vol] 9 mmol/L Normal 9-18 [facility] Comment on above: Order Comment: Speci men Type: BLOOD SPECIMENOrdering Facility: [facility] Address: [address] [place] [address] Performed By: #### 1 9123-9, 51650-5 ####[facility]ATORYCLIA [id number] [place] [address] [place] Calcium [Mass/Vol] 8.4 mg/dL Low 8.5-10.2 [facility] Comment on above: Order Comment: Speci men Type: BLOOD SPECIMENOrdering Facility: [facility] Address: [address] Performed By: #### 1 9123-9, 79340-3 ####[facility]ATORYCLIA [id number] [place] [address] [place] Chloride [Moles/Vol] 104 mmol/L Normal 97-105 [facility] Comment on above: Order Comment: Speci men Type: BLOOD SPECIMENOrdering Facility: [facility] Address: [address] [place] [address] Performed By: #### 1 9123 ####[facility]ATORYCLIA [id number] [address] [place] CO2 [Moles/Vol] 26 mmol/L Normal 22-30 [facility] Comment on above: Order Comment: Speci men Type: BLOOD SPECIMENOrdering Facility: [facility] Address: [address] [place] [address] Performed By: #### 1 91239, ####[facility]ENTERCLIA [id number] [address] STATES OF [facility] Creatinine [Mass/Vol] 0.62 mg/dL Low 0.73-1.22 [facility] Comment on above: Order Comment: Speci men Type: BLOOD SPECIMENOrdering Facility: [facility] Address: [address] [place] [address] Performed By: #### 1 [address]1239, ####[facility]ITALIA [id number] [address] GFR/1.73 sq M.predicted MDRD (S/P/Bld) [Vol rate/Area] mL/min/{1.73_m2} Normal [facility] Comment on above: Order Comment: Speci francia Type: BLOOD SPECIMENOrdering Facility: [facility] Address: [address] [place] [address] Result Comment: >60e GFR (Estimated GFR) Units [...] actual GFR. Performed By: #### 1 9123-9, ####[facility]ATORYCLIA [id number] [place] [id number] [place] Glucose [Mass/Vol] 111 mg/dL High 74-99 [facility] Comment on above: Order Comment: Speci men Type: BLOOD SPECIMENOrdering Facility: [facility] Address: [address] [place] [address] Result Comment: The [place] [employer] (ADA) provides guidance for cutoff [...] Standards of Medical Care in Diabetes 2016, [employer]. Diabetes Care. 2016.39(Suppl 1). Performed By: #### 1 9123-9, 64051-2 ####[facility]ATORYCLIA [id number] [place] [address] [place] Potassium [Moles/Vol] 4.1 mmol/L Normal 3.7-5.1 [facility] Comment on above: Order Comment: Speci men Type: BLOOD SPECIMENOrdering Facility: [facility] Address: [address] [place] [address] Performed By: #### 1 9123-9, 16526-7 ####[facility]ATORYCLIA [id number] [place] [address] [place] Sodium [Moles/Vol] 139 mmol/L Normal 136-144 [facility] Comment on above: Order Comment: Speci men Type: BLOOD SPECIMENOrdering Facility: [facility] Address: [address] [place] [address] Performed By: #### 1 9123-9, 76673-3 ####[facility]ATORYCLIA [id number] [place] [address] [place] Urea nitrogen [Mass/Vol] 26 mg/dL High 9-24 [facility] Comment on above: Order Comment: Speci men Type: BLOOD SPECIMENOrdering Facility: [facility] Address: [address] [place] [address] Performed By: #### 1 9123-9, 33165-0 ####[facility]ATORYCLIA [id number] [address] [place] CASE MANAGEMon 06-23-2021 CASE MANAGEM Normal [facility] CBC panel Auto (Bld)on 06-23 Erythrocyte distribution width (RBC) [Ratio] 16.0 % High 11.5-15.0 [facility] Comment on above: Order Comment: Speci men Type: BLOOD SPECIMENOrdering Facility: [facility] Address: [address] [place] [address] Performed By: #### 5 8410-2 ####[facility]ATORYCLIA [id number] [address] [place] Hematocrit (Bld) [Volume fraction] 31.1 % Low 39.0-51.0 [facility] Comment on above: Order Comment: Speci men Type: BLOOD SPECIMENOrdering Facility: [facility] Address: [address] [place] [address] Performed By: #### 5 8410-2 ####[facility]ATORYCLIA [id number] [place] [address] [place] Hemoglobin (Bld) [Mass/Vol] 9.5 g/dL Low 13.0-17.0 [facility] Comment on above: Order Comment: Speci men Type: BLOOD SPECIMENOrdering Facility: [facility] Address: [address] [place] [address] Performed By: #### 5 8410-2 ####[facility]ORYCLIA [id number] [address] [place] MCH (RBC) [Entitic mass] 28.1 pg Normal 26.0-34.0 [facility] Comment on above: Order Comment: Speci men Type: BLOOD SPECIMENOrdering Facility: [facility] Address: [address] [place] [place] [address] Performed By: #### 5 8410-2 ####[facility]ATORYCLIA [id number] [address] STATES [facility] MCHC (RBC) [Mass/Vol] 30.5 g/dL Normal 30.5-36.0 [facility] Comment on above: Order Comment: Speci men Type: BLOOD SPECIMENOrdering Facility: [facility] Address: [address] [place] [address] Performed By: #### 5 8410-2 ####[facility]ATORYCLIA [id number] [address] [place] MCV (RBC) [Entitic vol] 92.0 fL Normal 80.0-100.0 [facility] Comment on above: Order Comment: Speci men Type: BLOOD SPECIMENOrdering Facility: [facility] Address: [address] [place] [address] Performed By: #### 5 8410-2 ####[facility]ORYCLIA [id number] [address] [place] Nucleated RBC (Bld) [#/Vol] 10*3/uL Normal <0.01 [facility] Comment on above: Order Comment: Speci men Type: BLOOD SPECIMENOrdering Facility: [facility] Address: [address] [place] [address] Performed By: #### 5 8410-2 ####[facility]ATORYCLIA [id number] [address] Platelet mean volume (Bld) [Entitic vol] 11.0 fL Normal 9.0-12.7 [facility] Comment on above: Order Comment: Speci men Type: BLOOD SPECIMENOrdering Facility: [facility] Address: [address] [place] [address] Performed By: #### 5 8410-2 ####[facility]ATORYCLIA [id number] [place] [address] [place] Platelets (Bld) [#/Vol] 361 10*3/uL Normal 150-400 [facility] Comment on above: Order Comment: Speci men Type: BLOOD SPECIMENOrdering Facility: [facility] Address: [address] [place] [address] Performed By: #### 5 8410-2 ####[facility]ATORYCLIA [id number] [place] [address] [place] RBC (Bld) [#/Vol] 3.38 10*6/uL Low 4.20-6.00 [facility] Comment on above: Order Comment: Speci men Type: BLOOD SPECIMENOrdering Facility: [facility] Address: [address] [place] [address] Performed By: #### 5 8410-2 ####[facility]ATORYCLIA [id number] [address] OF [facility] WBC (Bld) [#/Vol] 9.02 10*3/uL Normal 3.70-11.00 [facility] Comment on above: Order Comment: Speci men Type: BLOOD SPECIMENOrdering Facility: [facility] Address: [address] [place] [address] Performed By: #### 5 8410-2 ####[facility]ATORYCLIA [id number] [address] [place] CONSULT PROGon 06-23-2021 CONSULT PROG Normal [facility] CONSULT PROG Normal [facility] Magnesium SerPl-mCncon 06-23 Magnesium [Mass/Vol] 2.4 mg/dL High 1.7-2.3 [facility] Comment on above: Order Comment: Speci men Type: BLOOD SPECIMENOrdering Facility: [facility] Address: [address] [place] [address] Performed By: #### 1 9123-9, 05211-3 ####[facility]ATORYCLIA [id number] [address] [place] THERAPY NTon 06-23-2021 THERAPY NT Normal [facility] Vancomycin random [Mass/Vol] on 06-23-2021 Vancomycin [Mass/Vol] 22.8 ug/mL High 10.0-20.0 [facility] Comment on above: Order Comment: Speci men Type: BLOOD SPECIMENOrdering Facility: [facility] Address: [address] [address] Result Comment: Refe rence ranges and high/low indicator flags are provided as general guidelines only. The treating physician must determine appropriate target levels/dosing based on the specific clinical situation. Performed By: #### 4 091-5 ####[facility]ATORYCLIA [id number] [place] [address] [place] XR MOD BARIUM SWALLOW W SPEE Lore 06-23-2021 XR MOD BARIUM SWALLOW W SPEECH Normal [facility] Basic metabolic 2000 panelon 06-22-2021 Anion gap [Moles/Vol] 6 mmol/L Low 9-18 [facility] Comment on above: Order Comment: Speci men Type: BLOOD SPECIMENOrdering Facility: [facility] Address: [address] [place] [place] [address] Performed By: #### 2 432-, ####[facility]ATORYCLIA [id number] [place] [address] [place] Calcium [Mass/Vol] 8.5 mg/dL Normal 8.5-10.2 [facility] Comment on above: Order Comment: Speci men Type: BLOOD SPECIMENOrdering Facility: [facility] Address: [address] [place] [place] [address] Performed By: #### 2 432-2, ####[facility]ATORYCLIA [id number] [place] [address] [place] Chloride [Moles/Vol] 105 mmol/L Normal 97-105 [facility] Comment on above: Order Comment: Speci men Type: BLOOD SPECIMENOrdering Facility: [facility] Address: [address] [place] [place] [address] Performed By: #### 2 432-2, ####[facility]ATORYCLIA [id number] [place] [id number] [place] CO2 [Moles/Vol] 26 mmol/L Normal 22-30 [facility] Comment on above: Order Comment: Speci men Type: BLOOD SPECIMENOrdering Facility: [facility] Address: [address] [place] [address] Performed By: #### 2 432-2, ####[facility]ATORYCLIA [id number] [place] [address] [place] Creatinine [Mass/Vol] 0.56 mg/dL Low 0.73-1.22 [facility] Comment on above: Order Comment: Speci men Type: BLOOD SPECIMENOrdering Facility: [facility] Address: [address] [place] [address] Performed By: #### 2 43205-08, ####[facility]ENTERCLIA [id number] [address] STATES OF [facility] GFR/1.73 sq M.predicted MDRD (S/P/Bld) [Vol rate/Area] mL/min/{1.73_m2} Normal [facility] Comment on above: Order Comment: Shira feldman Type: BLOOD SPECIMENOrdering Facility: [facility] Address: [address] [place] [address] Result Comment: >60e GFR (Estimated GFR) Units [...] actual GFR. Performed By: #### 2 4321-2, ####[facility]ATORYCLIA [id number] [place] [id number] [place] Glucose [Mass/Vol] 120 mg/dL High 74-99 [facility] Comment on above: Order Comment: Speci men Type: BLOOD SPECIMENOrdering Facility: [facility] Address: [address] [place] [address] Result Comment: The [place] [employer] (ADA) provides guidance for cutoff [...] Standards of Medical Care in Diabetes 2016, [employer]. Diabetes Care. 2016.39(Suppl 1). Performed By: #### 2 4320-06, ####[facility]ATORYCLIA [id number] [place] [address] [place] Potassium [Moles/Vol] 4.0 mmol/L Normal 3.7-5.1 [facility] Comment on above: Order Comment: Shira feldman Type: BLOOD SPECIMENOrdering Facility: [facility] Address: [address] [place] [address] Performed By: #### 2 ####[facility]ATORYCLIA [id number] [place] [address] [place] Sodium [Moles/Vol] 137 mmol/L Normal 136-144 [facility] Comment on above: Order Comment: Speccara feldman Type: BLOOD SPECIMENOrdering Facility: [facility] Address: [address] [place] [address] Performed By: #### 2 4320-06, ####[facility] LABORATORYCLIA [id number] [place] [address] [place] Urea nitrogen [Mass/Vol] 25 mg/dL High 9-24 [facility] Comment on above: Order Comment: Speci men Type: BLOOD SPECIMENOrdering Facility: [facility] Address: [address] [place] [address] Performed By: #### 2 4321-2, 51454-9 ####[facility] LABORATORYCLIA [id number] [address] [place] CASE MANAGEMon 06-22-2021 CASE MANAGEM Normal [facility] CBC panel Auto (Bld)on 06-22 Erythrocyte distribution width (RBC) [Ratio] 16.0 % High 11.5-15.0 [facility] Comment on above: Order Comment: Speci men Type: BLOOD SPECIMENOrdering Facility: [facility] Address: [address] [place] [address] Performed By: #### 5 8410-2 ####[facility]ATORYCLIA [id number] [address] [place] Hematocrit (Bld) [Volume fraction] 30.5 % Low 39.0-51.0 [facility] Comment on above: Order Comment: Speci men Type: BLOOD SPECIMENOrdering Facility: [facility] Address: [address] [place] [address] Performed By: #### 5 8410-2 ####[facility]ATORYCLIA [id number] [address] [place] Hemoglobin (Bld) [Mass/Vol] 9.3 g/dL Low 13.0-17.0 [facility] Comment on above: Order Comment: Speci men Type: BLOOD SPECIMENOrdering Facility: [facility] Address: [address] [place] [address] Performed By: #### 5 8410-2 ####[facility]ATORYCLIA [id number] [address] [place] MCH (RBC) [Entitic mass] 28.4 pg Normal 26.0-34.0 [facility] Comment on above: Order Comment: Speci men Type: BLOOD SPECIMENOrdering Facility: [facility] Address: [address] [place] [address] Performed By: #### 5 8410-2 ####[facility]ORYCLIA [id number] [address] MCHC (RBC) [Mass/Vol] 30.5 g/dL Normal 30.5-36.0 [facility] Comment on above: Order Comment: Speci men Type: BLOOD SPECIMENOrdering Facility: [facility] Address: [address] [place] [address] Performed By: #### 5 8410-2 ####[facility]ORYCLIA [id number] [address] MCV (RBC) [Entitic vol] 93.3 fL Normal 80.0-100.0 [facility] Comment on above: Order Comment: Speci men Type: BLOOD SPECIMENOrdering Facility: [facility] Address: [address] [place] [address] Performed By: #### 5 8410-2 ####[facility]ORYCLIA [id number] [address] Nucleated RBC (Bld) [#/Vol] 10*3/uL Normal <0.01 [facility] Comment on above: Order Comment: Speci men Type: BLOOD SPECIMENOrdering Facility: [facility] Address: [address] [place] [address] Performed By: #### 5 8410-2 ####[facility]ORYCLIA [id number] [address] Platelet mean volume (Bld) [Entitic vol] 11.5 fL Normal 9.0-12.7 [facility] Comment on above: Order Comment: Speci men Type: BLOOD SPECIMENOrdering Facility: [facility] Address: [address] [place] [address] Performed By: #### 5 8410-2 ####[facility]ORYCLIA [id number] [address] [place] Platelets (Bld) [#/Vol] 346 10*3/uL Normal 150-400 [facility] Comment on above: Order Comment: Speci men Type: BLOOD SPECIMENOrdering Facility: [facility] Address: [address] [place] [address] Performed By: #### 5 8410-2 ####[facility]ORYCLIA [id number] [address] STATES OF [facility] RBC (Bld) [#/Vol] 3.27 10*6/uL Low 4.20-6.00 [facility] Comment on above: Order Comment: Speci men Type: BLOOD SPECIMENOrdering Facility: [facility] Address: [address] [place] [address] Performed By: #### 5 8410-2 ####[facility]ORYCLIA [id number] [address] STATES OF [facility] WBC (Bld) [#/Vol] 9.44 10*3/uL Normal 3.70-11.00 [facility] Comment on above: Order Comment: Speci men Type: BLOOD SPECIMENOrdering Facility: [facility] Address: [address] [place] [address] Performed By: #### 5 8410-2 ####[facility]ATORYCLIA [id number] [address] [place] HEMOGLOBIN (HGB)on Hemoglobin (Bld) [Mass/Vol] 9.7 g/dL Low 13.0-17.0 [facility] Comment on above: Order Comment: Speci men Type: BLOOD SPECIMENOrdering Facility: [facility] Address: [address] [place] [address] Performed By: #### H GB ####[facility]ATORYCLIA [id number] [address] OF [facility] Magnesium SerPl-mCncon 06-22 Magnesium [Mass/Vol] 2.4 mg/dL High 1.7-2.3 [facility] Comment on above: Order Comment: Speci men Type: BLOOD SPECIMENOrdering Facility: [facility] Address: [address] [place] [address] Performed By: #### 2 4321-2, ####[facility]ORYCLIA [id number] [address] [place] THERAPY NTon 06-22-2021 THERAPY NT Normal [facility] THERAPY NT Normal [facility] aPTT PPPon 06-22-2021 aPTT Coag (PPP) [Time] 62.3 s High 23.0-32.4 [facility] Comment on above: Order Comment: Speci men Type: BLOOD SPECIMENOrdering Facility: [facility] Address: [address] [place] [address] Performed By: #### 1 4979-9 ####[facility]ORYCLIA [id number] [address] [place] ALLIED HEALTHon 06-21-2021 ALLIED HEALTH Normal [facility] Basic metabolic 2000 panelon 06-21-2021 Anion gap [Moles/Vol] 8 mmol/L Low 9-18 [facility] Comment on above: Order Comment: Speci men Type: BLOOD SPECIMENOrdering Facility: [facility] Address: [address] [place] [address] Performed By: #### 2 432-2, ####[facility]ATORYCLIA [id number] [place] [address] [place] Calcium [Mass/Vol] 8.2 mg/dL Low 8.5-10.2 [facility] Comment on above: Order Comment: Speci men Type: BLOOD SPECIMENOrdering Facility: [facility] Address: [address] [place] [address] Performed By: #### 2 4321-2, ####[facility]ORYCLIA [id number] [address] [place] Chloride [Moles/Vol] 108 mmol/L High 97-105 [facility] Comment on above: Order Comment: Speci men Type: BLOOD SPECIMENOrdering Facility: [facility] Address: [address] [place] [address] Performed By: #### 2 432-2, ####[facility]ATORYCLIA [id number] [address] [place] CO2 [Moles/Vol] 24 mmol/L Normal 22-30 [facility] Comment on above: Order Comment: Speci men Type: BLOOD SPECIMENOrdering Facility: [facility] Address: [address] [place] [address] Performed By: #### 2 432-2, ####[facility]ORYCLIA [id number] [address] [place] Creatinine [Mass/Vol] 0.61 mg/dL Low 0.73-1.22 [facility] Comment on above: Order Comment: Speci men Type: BLOOD SPECIMENOrdering Facility: [facility] Address: [address] [place] [address] Performed By: #### 2 43205-08, ####[facility]ATORYCLIA [id number] [address] [place] GFR/1.73 sq M.predicted MDRD (S/P/Bld) [Vol rate/Area] mL/min/{1.73_m2} Normal [facility] Comment on above: Order Comment: Speci men Type: BLOOD SPECIMENOrdering Facility: [facility] Address: [address] [place] [address] Result Comment: >60e GFR (Estimated GFR) Units [...] reflect actual GFR. Performed By: #### 2 ####[facility]ATORYCLIA [id number] [place] [address] [place] Glucose [Mass/Vol] 211 mg/dL High 74-99 [facility] Comment on above: Order Comment: Speci men Type: BLOOD SPECIMENOrdering Facility: [facility] Address: [address] [place] [address] Result Comment: The [employer] (ADA) provides guidance for cutoff [...] Standards of Medical Care in Diabetes 2016, [employer]. Diabetes Care. 2016.39(Suppl 1). Performed By: #### 2 ####[facility]ATORYCLIA [id number] [place] [address] [place] Potassium [Moles/Vol] 4.3 mmol/L Normal 3.7-5.1 [facility] Comment on above: Order Comment: Speci men Type: BLOOD SPECIMENOrdering Facility: [facility] Address: [address] [place] [address] Performed By: #### 2 ####[facility]ATORYCLIA [id number] [place] [address] [place] Sodium [Moles/Vol] 140 mmol/L Normal 136-144 [facility] Comment on above: Order Comment: Speci men Type: BLOOD SPECIMENOrdering Facility: [facility] Address: [address] [place], [place] [address] Performed By: #### 2 ####[facility]ATORYCLIA [id number] [address] [place] Urea nitrogen [Mass/Vol] 26 mg/dL High 9-24 [facility] Comment on above: Order Comment: Speci men Type: BLOOD SPECIMENOrdering Facility: [facility] Address: [address] [place] [address] Performed By: #### 2 4321-2, 21719-2 ####[facility]ATORYCLIA [id number] [address] CBC panel Auto (Bld)on 06-21 Erythrocyte distribution width (RBC) [Ratio] 16.1 % High 11.5-15.0 [facility] Comment on above: Order Comment: Speci men Type: BLOOD SPECIMENOrdering Facility: [facility] Address: [address] [place] [address] Performed By: #### 5 8410-2 ####[facility]ATORYCLIA [id number] [address] Hematocrit (Bld) [Volume fraction] 29.7 % Low 39.0-51.0 [facility] Comment on above: Order Comment: Speci men Type: BLOOD SPECIMENOrdering Facility: [facility] Address: [address] [place] [address] Performed By: #### 5 8410-2 ####[facility]ATORYCLIA [id number] [address] [place] Hemoglobin (Bld) [Mass/Vol] 9.2 g/dL Low 13.0-17.0 [facility] Comment on above: Order Comment: Speci men Type: BLOOD SPECIMENOrdering Facility: [facility] Address: [address] [place] [address] Performed By: #### 5 8410-2 ####[facility]ATORYCLIA [id number] [address] [place] MCH (RBC) [Entitic mass] 28.8 pg Normal 26.0-34.0 [facility] Comment on above: Order Comment: Speci men Type: BLOOD SPECIMENOrdering Facility: [facility] Address: [address] [place] [address] Performed By: #### 5 8410-2 ####[facility]ORYCLIA [id number] [address] MCHC (RBC) [Mass/Vol] 31.0 g/dL Normal 30.5-36.0 [facility] Comment on above: Order Comment: Speci men Type: BLOOD SPECIMENOrdering Facility: [facility] Address: [address] [place] [address] Performed By: #### 5 8410-2 ####[facility]ORYCLIA [id number] [address] [place] MCV (RBC) [Entitic vol] 93.1 fL Normal 80.0-100.0 [facility] Comment on above: Order Comment: Speci men Type: BLOOD SPECIMENOrdering Facility: [facility] Address: [address] [place] [address] Performed By: #### 5 8410-2 ####[facility]ORYCLIA [id number] [address] Nucleated RBC (Bld) [#/Vol] 10*3/uL Normal <0.01 [facility] Comment on above: Order Comment: Speci men Type: BLOOD SPECIMENOrdering Facility: [facility] Address: [address] [place] [address] Performed By: #### 5 8410-2 ####[facility]ORYCLIA [id number] [address] Platelet mean volume (Bld) [Entitic vol] 11.6 fL Normal 9.0-12.7 [facility] Comment on above: Order Comment: Speci men Type: BLOOD SPECIMENOrdering Facility: [facility] Address: [address] [place] [address] Performed By: #### 5 8410-2 ####[facility]ATORYCLIA [id number] [place] [address] [place] Platelets (Bld) [#/Vol] 347 10*3/uL Normal 150-400 [facility] Comment on above: Order Comment: Speci men Type: BLOOD SPECIMENOrdering Facility: [facility] Address: [address] [place] [address] Performed By: #### 5 8410-2 ####[facility]ATORYCLIA [id number] [place] [address] [place] RBC (Bld) [#/Vol] 3.19 10*6/uL Low 4.20-6.00 [facility] Comment on above: Order Comment: Speci men Type: BLOOD SPECIMENOrdering Facility: [facility] Address: [address] [place] [address] Performed By: #### 5 8410-2 ####[facility]ATORYCLIA [id number] [address] STATES [facility] WBC (Bld) [#/Vol] 10.29 10*3/uL Normal 3.70-11.00 [facility] Comment on above: Order Comment: Speci men Type: BLOOD SPECIMENOrdering Facility: [facility] Address: [address] [place] [address] Performed By: #### 5 8410-2 ####[facility]ATORYCLIA [id number] [address] OF [facility] CONSULT PROGon 06-21-2021 CONSULT PROG Normal [facility] CONSULT PROG Normal [facility] Magnesium SerPl-mCncon 06-21 Magnesium [Mass/Vol] 2.5 mg/dL High 1.7-2.3 [facility] Comment on above: Order Comment: Speci men Type: BLOOD SPECIMENOrdering Facility: [facility] Address: [address] [place] [address] Performed By: #### 2 4321-2, 79630-9 ####[facility]ATORYCLIA [id number] [address] [place] NUTRITIONon 06-21-2021 NUTRITION Normal [facility] XR CHEST 1V FRONTALon 2021 XR CHEST 1V FRONTAL Normal [facility] aPTT PPPon 06-21-2021 aPTT Coag (PPP) [Time] 68.5 s High 23.0-32.4 [facility] Comment on above: Order Comment: Speci men Type: BLOOD SPECIMENOrdering Facility: [facility] Address: [address] [place] [address] Performed By: #### 1 4979-9 ####[facility]ATORYCLIA [id number] [address] STATES [facility] aPTT Coag (PPP) [Time] 57.8 s High 23.0-32.4 [facility] Comment on above: Order Comment: Speci men Type: BLOOD SPECIMENOrdering Facility: [facility] Address: [address] [place] [address] Performed By: #### 1 4979-9 ####[facility]ATORYCLIA [id number] [place] [address] [place] Basic metabolic 2000 panelon 06-20-2021 Anion gap [Moles/Vol] 9 mmol/L Normal 9-18 [facility] Comment on above: Order Comment: Speci men Type: BLOOD SPECIMENOrdering Facility: [facility] Address: [address] [place] [address] Performed By: #### 2 4321-2, 05246-8 ####[facility]ATORYCLIA [id number] [place] [address] [place] Calcium [Mass/Vol] 8.3 mg/dL Low 8.5-10.2 [facility] Comment on above: Order Comment: Speci men Type: BLOOD SPECIMENOrdering Facility: [facility] Address: [address] [place] [address] Performed By: #### 2 4321-2, 56451-2 ####[facility]ATORYCLIA [id number] [address] OF [facility] Chloride [Moles/Vol] 111 mmol/L High 97-105 [facility] Comment on above: Order Comment: Speci men Type: BLOOD SPECIMENOrdering Facility: [facility] Address: [address] [place] [place] [address] Performed By: #### 2 4321-2, ####[facility]ATORYCLIA [id number] [address] [place] CO2 [Moles/Vol] 24 mmol/L Normal 22-30 [facility] Comment on above: Order Comment: Speci men Type: BLOOD SPECIMENOrdering Facility: [facility] Address: [address] [place] [address] Performed By: #### 2 4321-2, ####[facility]ATORYCLIA [id number] [address] STATES OF [facility] Creatinine [Mass/Vol] 0.64 mg/dL Low 0.73-1.22 [facility] Comment on above: Order Comment: Speci men Type: BLOOD SPECIMENOrdering Facility: [facility] Address: [address] [place] [address] Performed By: #### 2 4321-2, ####[facility]ATORYCLIA [id number] [address] [place] GFR/1.73 sq M.predicted MDRD (S/P/Bld) [Vol rate/Area] mL/min/{1.73_m2} Normal [facility] Comment on above: Order Comment: Speci men Type: BLOOD SPECIMENOrdering Facility: [facility] Address: [address] [place] [place] [address] Result Comment: >60e GFR (Estimated GFR) Units [...] actual GFR. Performed By: #### 2 432-, ####[facility]ATORYCLIA [id number] [place] [address] [place] Glucose [Mass/Vol] 114 mg/dL High 74-99 [facility] Comment on above: Order Comment: Shira feldman Type: BLOOD SPECIMENOrdering Facility: [facility] Address: [address] [id number] Result Comment: The [place] [employer] (ADA) provides guidance for cutoff [...] Standards of Medical Care in Diabetes 2016, [employer]. Diabetes Care. 2016.39(Suppl 1). Performed By: #### 2 432-, ####[facility]ATORYCLIA [id number] [place] [address] [place] Potassium [Moles/Vol] 4.1 mmol/L Normal 3.7-5.1 [facility] Comment on above: Order Comment: Shira feldman Type: BLOOD SPECIMENOrdering Facility: [facility] Address: [address] [place] [address] Performed By: #### 2 432-, ####[facility]ATORYCLIA [id number] [place] [id number] [place] Sodium [Moles/Vol] 144 mmol/L Normal 136-144 [facility] Comment on above: Order Comment: Shira feldman Type: BLOOD SPECIMENOrdering Facility: [facility] Address: [address] [place] [address] Performed By: #### 2 4321-2, 55040-4 ####[facility]ATORYCLIA [id number] [address] Urea nitrogen [Mass/Vol] 27 mg/dL High 9-24 [facility] Comment on above: Order Comment: Speci men Type: BLOOD SPECIMENOrdering Facility: [facility] Address: [address] [place] [address] Performed By: #### 2 4321-2, ####[facility]ATORYCLIA [id number] [address] CASE MANAGEMon 06-20-2021 CASE MANAGEM Normal [facility] CBC panel Auto (Bld)on 06-20 Erythrocyte distribution width (RBC) [Ratio] 15.9 % High 11.5-15.0 [facility] Comment on above: Order Comment: Speci men Type: BLOOD SPECIMENOrdering Facility: [facility] Address: [address] [place] [address] Performed By: #### 5 8410-2 ####[facility]ATORYCLIA [id number] [address] STATES OF [facility] Hematocrit (Bld) [Volume fraction] 31.0 % Low 39.0-51.0 [facility] Comment on above: Order Comment: Speci men Type: BLOOD SPECIMENOrdering Facility: [facility] Address: [address] [place] [address] Performed By: #### 5 8410-2 ####[facility]ATORYCLIA [id number] [address] [place] Hemoglobin (Bld) [Mass/Vol] 9.2 g/dL Low 13.0-17.0 [facility] Comment on above: Order Comment: Speci men Type: BLOOD SPECIMENOrdering Facility: [facility] Address: [address] [place] [address] Performed By: #### 5 8410-2 ####[facility]ATORYCLIA [id number] [address] MCH (RBC) [Entitic mass] 27.4 pg Normal 26.0-34.0 [facility] Comment on above: Order Comment: Speci men Type: BLOOD SPECIMENOrdering Facility: [facility] Address: [address] [place] [address] Performed By: #### 5 8410-2 ####[facility]ATORYCLIA [id number] [address] MCHC (RBC) [Mass/Vol] 29.7 g/dL Low 30.5-36.0 [facility] Comment on above: Order Comment: Speci men Type: BLOOD SPECIMENOrdering Facility: [facility] Address: [address] [place] [address] Performed By: #### 5 8410-2 ####[facility]ATORYCLIA [id number] [address] MCV (RBC) [Entitic vol] 92.3 fL Normal 80.0-100.0 [facility] Comment on above: Order Comment: Speci men Type: BLOOD SPECIMENOrdering Facility: [facility] Address: [address] [place] [address] Performed By: #### 5 8410-2 ####[facility]ATORYCLIA [id number] [address] Nucleated RBC (Bld) [#/Vol] 10*3/uL Normal <0.01 [facility] Comment on above: Order Comment: Speci men Type: BLOOD SPECIMENOrdering Facility: [facility] Address: [address] [place] [address] Performed By: #### 5 8410-2 ####[facility]ATORYCLIA [id number] [address] Platelet mean volume (Bld) [Entitic vol] 11.5 fL Normal 9.0-12.7 [facility] Comment on above: Order Comment: Speci men Type: BLOOD SPECIMENOrdering Facility: [facility] Address: [address] [place] [address] Performed By: #### 5 8410-2 ####[facility]ATORYCLIA [id number] [address] OF [facility] Platelets (Bld) [#/Vol] 343 10*3/uL Normal 150-400 [facility] Comment on above: Order Comment: Speci men Type: BLOOD SPECIMENOrdering Facility: [facility] Address: [address] [place] [address] Performed By: #### 5 8410-2 ####[facility]ATORYCLIA [id number] [address] OF [facility] RBC (Bld) [#/Vol] 3.36 10*6/uL Low 4.20-6.00 [facility] Comment on above: Order Comment: Speci men Type: BLOOD SPECIMENOrdering Facility: [facility] Address: [address] [place] [address] Performed By: #### 5 8410-2 ####[facility]ATORYCLIA [id number] [address] OF [facility] WBC (Bld) [#/Vol] 10.71 10*3/uL Normal 3.70-11.00 [facility] Comment on above: Order Comment: Speci men Type: BLOOD SPECIMENOrdering Facility: [facility] Address: [address] [place] [address] Performed By: #### 5 8410-2 ####[facility]ORYCLIA [id number] [address] CONSULT PROGon 06-20-2021 CONSULT PROG Normal [facility] HEMOGLOBIN (HGB)on 2 Hemoglobin (Bld) [Mass/Vol] 9.7 g/dL Low 13.0-17.0 [facility] Comment on above: Order Comment: Speci men Type: BLOOD SPECIMENOrdering Facility: [facility] Address: [address] [place] [address] Performed By: #### H GB ####[facility]ORATORYCLIA [id number] [address] [place] Magnesium SerPl-mCncon 06-20 Magnesium [Mass/Vol] 2.5 mg/dL High 1.7-2.3 [facility] Comment on above: Order Comment: Speci men Type: BLOOD SPECIMENOrdering Facility: [facility] Address: [address] [place] [address] Performed By: #### 2 4321-2, 30435-8 ####[facility] LABORATORYCLIA [id number] [address] OF [facility] NURSING PROGon 06-20-2021 NURSING PROG Normal [facility] THERAPY NTon 06-20-2021 THERAPY NT Normal [facility] aPTT PPPon 06-20-2021 aPTT Coag (PPP) [Time] 93.5 s High 23.0-32.4 [facility] Comment on above: Order Comment: Speci men Type: BLOOD SPECIMENOrdering Facility: [facility] [facility] Address: [address] [place] [address] Performed By: #### 1 4979-9 ####[facility]ATORYCLIA [id number] [address] aPTT Coag (PPP) [Time] 47.1 s High 23.0-32.4 [facility] Comment on above: Order Comment: Speci men Type: BLOOD SPECIMENOrdering Facility: [facility] Address: [address] [place] [address] Performed By: #### 1 4979-9 ####[facility]ATORYCLIA [id number] [address] [place] Basic metabolic 2000 panelon 06-19-2021 Anion gap [Moles/Vol] 7 mmol/L Low 9-18 [facility] Comment on above: Order Comment: Speci men Type: BLOOD SPECIMENOrdering Facility: [facility] Address: [address] [address] Performed By: #### 2 4321-2 ####[facility]ATORYCLIA [id number] [place] [address] [place] Calcium [Mass/Vol] 8.1 mg/dL Low 8.5-10.2 [facility] Comment on above: Order Comment: Speci men Type: BLOOD SPECIMENOrdering Facility: [facility] Address: [address] [address] Performed By: #### 2 4321-2 ####[facility]ATORYCLIA [id number] [place] [address] [place] Chloride [Moles/Vol] 111 mmol/L High 97-105 [facility] Comment on above: Order Comment: Speci men Type: BLOOD SPECIMENOrdering Facility: [facility] Address: [address] [address] Performed By: #### 2 4321-2 ####[facility]ATORYCLIA [id number] [place] [address] [place] CO2 [Moles/Vol] 24 mmol/L Normal 22-30 [facility] Comment on above: Order Comment: Speci men Type: BLOOD SPECIMENOrdering Facility: [facility] Address: [address] [place] [address] Performed By: #### 2 4321-2 ####[facility]ATORYCLIA [id number] [place] [address] [place] Creatinine [Mass/Vol] 0.71 mg/dL Low 0.73-1.22 [facility] Comment on above: Order Comment: Speci men Type: BLOOD SPECIMENOrdering Facility: [facility] Address: [address] [address] Performed By: #### 2 4321-2 ####[facility]ATORYCLIA [id number] [place] [address] [place] GFR/1.73 sq M.predicted MDRD (S/P/Bld) [Vol rate/Area] mL/min/{1.73_m2} Normal [facility] Comment on above: Order Comment: Shira feldman Type: BLOOD SPECIMENOrdering Facility: [facility] Address: [address] [place] [address] Result Comment: >60e GFR (Estimated GFR) Units [...] actual GFR. Performed By: #### 2 4321-2 ####[facility]ATORYCLIA [id number] [place] [address] [place] Glucose [Mass/Vol] 110 mg/dL High 74-99 [facility] Comment on above: Order Comment: Shira feldman Type: BLOOD SPECIMENOrdering Facility: [facility] Address: [address] [place] [address] Result Comment: The [employer] (ADA) provides guidance for cutoff [...] Standards of Medical Care in Diabetes 2016, [employer]. Diabetes Care. 2016.39(Suppl 1). Performed By: #### 2 4321-2 ####[facility]ATORYCLIA [id number] [place] [address] [place] Potassium [Moles/Vol] 3.7 mmol/L Normal 3.7-5.1 [facility] Comment on above: Order Comment: Speci men Type: BLOOD SPECIMENOrdering Facility: [facility] Address: [address] [place] [address] Performed By: #### 2 4321-2 ####[facility]ATORYCLIA [id number] [address] STATES [facility] Sodium [Moles/Vol] 142 mmol/L Normal 136-144 [facility] Comment on above: Order Comment: Speci men Type: BLOOD SPECIMENOrdering Facility: [facility] Address: [address] [place] [address] Performed By: #### 2 4321-2 ####[facility]ORYCLIA [id number] [address] Urea nitrogen [Mass/Vol] 26 mg/dL High 9-24 [facility] Comment on above: Order Comment: Speci men Type: BLOOD SPECIMENOrdering Facility: [facility] Address: [address] [place] [address] Performed By: #### 2 4321-2 ####[facility]ATORYCLIA [id number] [address] CBC panel Auto (Bld)on 06-19 Erythrocyte distribution width (RBC) [Ratio] 15.7 % High 11.5-15.0 [facility] Comment on above: Order Comment: Speci men Type: BLOOD SPECIMENOrdering Facility: [facility] Address: [address] [place] [address] Performed By: #### 5 8410-2 ####[facility]ATORYCLIA [id number] [address] Hematocrit (Bld) [Volume fraction] 30.9 % Low 39.0-51.0 [facility] Comment on above: Order Comment: Speci men Type: BLOOD SPECIMENOrdering Facility: [facility] Address: [address] [place] [address] Performed By: #### 5 8410-2 ####[facility]ATORYCLIA [id number] [address] OF [facility] Hemoglobin (Bld) [Mass/Vol] 9.5 g/dL Low 13.0-17.0 [facility] Comment on above: Order Comment: Speci men Type: BLOOD SPECIMENOrdering Facility: [facility] Address: [address] [place] [address] Performed By: #### 5 8410-2 ####[facility]ATORYCLIA [id number] [address] MCH (RBC) [Entitic mass] 28.4 pg Normal 26.0-34.0 [facility] Comment on above: Order Comment: Speci men Type: BLOOD SPECIMENOrdering Facility: [facility] Address: [address] [place] [address] Performed By: #### 5 8410-2 ####[facility]ORYCLIA [id number] [address] MCHC (RBC) [Mass/Vol] 30.7 g/dL Normal 30.5-36.0 [facility] Comment on above: Order Comment: Speci men Type: BLOOD SPECIMENOrdering Facility: [facility] Address: [address] [place] [address] Performed By: #### 5 8410-2 ####[facility]ORYCLIA [id number] [address] MCV (RBC) [Entitic vol] 92.2 fL Normal 80.0-100.0 [facility] Comment on above: Order Comment: Speci men Type: BLOOD SPECIMENOrdering Facility: [facility] Address: [address] [place] [address] Performed By: #### 5 8410-2 ####[facility]ATORYCLIA [id number] [address] Nucleated RBC (Bld) [#/Vol] 10*3/uL Normal <0.01 [facility] Comment on above: Order Comment: Speci men Type: BLOOD SPECIMENOrdering Facility: [facility] Address: [address] [address] Performed By: #### 5 8410-2 ####[facility]ATORYCLIA [id number] [address] Platelet mean volume (Bld) [Entitic vol] 11.7 fL Normal 9.0-12.7 [facility] Comment on above: Order Comment: Speci men Type: BLOOD SPECIMENOrdering Facility: [facility] Address: [address] [place] [address] Performed By: #### 5 8410-2 ####[facility]ATORYCLIA [id number] [address] [place] Platelets (Bld) [#/Vol] 323 10*3/uL Normal 150-400 [facility] Comment on above: Order Comment: Speci men Type: BLOOD SPECIMENOrdering Facility: [facility] Address: [address] [place] [address] Performed By: #### 5 8410-2 ####[facility]ATORYCLIA [id number] [place] [address] [place] RBC (Bld) [#/Vol] 3.35 10*6/uL Low 4.20-6.00 [facility] Comment on above: Order Comment: Speci men Type: BLOOD SPECIMENOrdering Facility: [facility] Address: [address] [place], [place] [address] Performed By: #### 5 8410-2 ####[facility]ATORYCLIA [id number] [address] [place] WBC (Bld) [#/Vol] 9.53 10*3/uL Normal 3.70-11.00 [facility] Comment on above: Order Comment: Speci men Type: BLOOD SPECIMENOrdering Facility: [facility] Address: [address] [place] [address] Performed By: #### 5 8410-2 ####[facility]ATORYCLIA [id number] [address] [place] HEMOGLOBIN (HGB)on Hemoglobin (Bld) [Mass/Vol] 9.7 g/dL Low 13.0-17.0 [facility] Comment on above: Order Comment: Speci men Type: BLOOD SPECIMENOrdering Facility: [facility] Address: [address] [place] [address] Performed By: #### H GB ####[facility]ATORYCLIA [id number] [address] [place] Magnesium SerPl-mCncon 06-19 Magnesium [Mass/Vol] 2.5 mg/dL High 1.7-2.3 [facility] Comment on above: Order Comment: Speci men Type: BLOOD SPECIMENOrdering Facility: [facility] Address: [address] [place] [address] Performed By: #### 1 9123-9, 2777-1 ####[facility]ATORYCLIA [id number] [address] [place] NURSING PROGon 06-19-2021 NURSING PROG Normal [facility] Phosphate SerPl-mCncon 06-19 Phosphate [Mass/Vol] 2.6 mg/dL Low 2.7-4.8 [facility] Comment on above: Order Comment: Speci men Type: BLOOD SPECIMENOrdering Facility: [facility] Address: [address] [place] [address] Performed By: #### 1 9123-9, 2777-1 ####[facility]ATORYCLIA [id number] [address] [place] aPTT PPPon 06-19-2021 aPTT Coag (PPP) [Time] 61.9 s High 23.0-32.4 [facility] Comment on above: Order Comment: Speci men Type: BLOOD SPECIMENOrdering Facility: [facility] Address: [address] [place] [address] Performed By: #### 1 4979-9 ####[facility]ATORYCLIA [id number] [address] [place] aPTT Coag (PPP) [Time] 68.6 s High 23.0-32.4 [facility] Comment on above: Order Comment: Speci men Type: BLOOD SPECIMENOrdering Facility: [facility] Address: [address] [place] [address] Performed By: #### 1 4979-9 ####[facility]ORYCLIA [id number] [address] STATES OF [facility] aPTT Coag (PPP) [Time] 83.2 s High 23.0-32.4 [facility] Comment on above: Order Comment: Speci men Type: BLOOD SPECIMENOrdering Facility: [facility] Address: [address] [place] [address] Performed By: #### 1 4979-9 ####[facility]ATORYCLIA [id number] [place] [address] [place] Basic metabolic 2000 panelon 06-18-2021 Anion gap [Moles/Vol] 7 mmol/L Low 9-18 [facility] Comment on above: Order Comment: Speci men Type: BLOOD SPECIMENOrdering Facility: [facility] Address: [address] [place] [address] Performed By: #### 2 4321-2, 00832-2, 2777-1 ####[facility]ATORYCLIA [id number] [place] [address] [place] Calcium [Mass/Vol] 8.2 mg/dL Low 8.5-10.2 [facility] Comment on above: Order Comment: Speci men Type: BLOOD SPECIMENOrdering Facility: [facility] Address: [address] [place] [address] Performed By: #### 2 4321-2, 06763-8, 2777-1 ####[facility]ATORYCLIA [id number] [address] [place] Chloride [Moles/Vol] 115 mmol/L High 97-105 [facility] Comment on above: Order Comment: Speci men Type: BLOOD SPECIMENOrdering Facility: [facility] Address: [address] [place], [place] [address] Performed By: #### 2 4321-2, , 2776-05 ####[facility]ATORYCLIA [id number] [place] [address] [place] CO2 [Moles/Vol] 23 mmol/L Normal 22-30 [facility] Comment on above: Order Comment: Speci men Type: BLOOD SPECIMENOrdering Facility: [facility] Address: [address] [place], [place] [address] Performed By: #### 2 4321-2, , 2776-05 ####[facility]ATORYCLIA [id number] [address] [place] Creatinine [Mass/Vol] 0.70 mg/dL Low 0.73-1.22 [facility] Comment on above: Order Comment: Speci men Type: BLOOD SPECIMENOrdering Facility: [facility] Address: [address] [place], [place] [address] Performed By: #### 2 4321-2, , 2776-05 ####[facility]ATORYCLIA [id number] [address] [place] GFR/1.73 sq M.predicted MDRD (S/P/Bld) [Vol rate/Area] mL/min/{1.73_m2} Normal [facility] Comment on above: Order Comment: Speci men Type: BLOOD SPECIMENOrdering Facility: [facility] Address: [address] [place], [place] [address] Result Comment: >60e GFR (Estimated GFR) Units [...] Performed By: #### 2 4321-2, , 2776-05 ####[facility]ATORYCLIA [id number] [place] [address] [place] Glucose [Mass/Vol] 105 mg/dL High 74-99 [facility] Comment on above: Order Comment: Shira feldman Type: BLOOD SPECIMENOrdering Facility: [facility] Address: [address] [place], [place] [address] Result Comment: The [place] Diabetes [employer] (ADA) provides guidance for cutoff [...] Standards of Medical Care in Diabetes 2016, [employer]. Diabetes Care. 2016.39(Suppl 1). Performed By: #### 2 4321-2, , 2776-05 ####[facility]ATORYCLIA [id number] [place] [address] [place] Potassium [Moles/Vol] 4.1 mmol/L Normal 3.7-5.1 [facility] Comment on above: Order Comment: Shira feldman Type: BLOOD SPECIMENOrdering Facility: [facility] Address: [address] [place] [address] Performed By: #### 2 4321-2, , 2776-05 ####[facility]ATORYCLIA [id number] [place] [address] [place] Sodium [Moles/Vol] 145 mmol/L High 136-144 [facility] Comment on above: Order Comment: Speci men Type: BLOOD SPECIMENOrdering Facility: [facility] Address: [address] [place] [address] Performed By: #### 2 4321-2, , 27711-04 ####[facility]ATORYCLIA [id number] [address] STATES [facility] Urea nitrogen [Mass/Vol] 27 mg/dL High 9-24 [facility] Comment on above: Order Comment: Speci men Type: BLOOD SPECIMENOrdering Facility: [facility] Address: [address] [place] [address] Performed By: #### 2 4321-2, , 27711-04 ####[facility]ATORYCLIA [id number] [address] STATES OF [facility] CALCIUM IONIZED Bon 06-18-19 Calcium.ionized (BldV) [Mass/Vol] 1.22 mmol/L Normal 1.08-1.30 [facility] Comment on above: Order Comment: Speci men Type: BLOOD SPECIMENOrdering Facility: [facility] Address: [address] [place] [address] Performed By: #### I [place] ####[facility]ENTERCLIA [id number] [address] STATES [facility] Calcium.ionized adjusted to pH 7.4 (Bld) [Moles/Vol] 1.23 mmol/L Normal 1.08-1.30 [facility] Comment on above: Order Comment: Speci men Type: BLOOD SPECIMENOrdering Facility: [facility] Address: [address] [place] [address] Performed By: #### I [place] ####[facility]ORYCLIA [id number] [address] STATES OF [facility] CBC panel Auto (Bld)on 06-18 Erythrocyte distribution width (RBC) [Ratio] 15.8 % High 11.5-15.0 [facility] Comment on above: Order Comment: Speci men Type: BLOOD SPECIMENOrdering Facility: [facility] Address: [address] [place], [place] [address] Performed By: #### 5 8410-2 ####[facility]ATORYCLIA [id number] [address] Hematocrit (Bld) [Volume fraction] 29.5 % Low 39.0-51.0 [facility] Comment on above: Order Comment: Speci men Type: BLOOD SPECIMENOrdering Facility: [facility] Address: [address] [place] [address] Performed By: #### 5 8410-2 ####[facility]ORYCLIA [id number] [address] Hemoglobin (Bld) [Mass/Vol] 8.8 g/dL Low 13.0-17.0 [facility] Comment on above: Order Comment: Speci men Type: BLOOD SPECIMENOrdering Facility: [facility] Address: [address] [place] [address] Performed By: #### 5 8410-2 ####[facility]ATORYCLIA [id number] [address] MCH (RBC) [Entitic mass] 27.4 pg Normal 26.0-34.0 [facility] Comment on above: Order Comment: Speci men Type: BLOOD SPECIMENOrdering Facility: [facility] Address: [address] [place] [address] Performed By: #### 5 8410-2 ####[facility]ORYCLIA [id number] [address] STATES OF [facility] MCHC (RBC) [Mass/Vol] 29.8 g/dL Low 30.5-36.0 [facility] Comment on above: Order Comment: Speci men Type: BLOOD SPECIMENOrdering Facility: [facility] Address: [address] [place] [address] Performed By: #### 5 8410-2 ####[facility]ATORYCLIA [id number] [address] MCV (RBC) [Entitic vol] 91.9 fL Normal 80.0-100.0 [facility] Comment on above: Order Comment: Speci men Type: BLOOD SPECIMENOrdering Facility: [facility] Address: [facility] [address] Performed By: #### 5 8410-2 ####[facility]ATORYCLIA [id number] [address] [place] Nucleated RBC (Bld) [#/Vol] 10*3/uL Normal <0.01 [facility] Comment on above: Order Comment: Speci men Type: BLOOD SPECIMENOrdering Facility: [facility] Address: [address] [place] [address] Performed By: #### 5 8410-2 ####[facility]ATORYCLIA [id number] [address] [place] Platelet mean volume (Bld) [Entitic vol] 11.9 fL Normal 9.0-12.7 [facility] Comment on above: Order Comment: Speci men Type: BLOOD SPECIMENOrdering Facility: [facility] Address: [address] [place] [place] [address] Performed By: #### 5 8410-2 ####[facility]ATORYCLIA [id number] [address] [place] Platelets (Bld) [#/Vol] 291 10*3/uL Normal 150-400 [facility] Comment on above: Order Comment: Speci men Type: BLOOD SPECIMENOrdering Facility: [facility] Address: [address] [place], [place] [address] Performed By: #### 5 8410-2 ####[facility]ATORYCLIA [id number] [address] [place] RBC (Bld) [#/Vol] 3.21 10*6/uL Low 4.20-6.00 [facility] Comment on above: Order Comment: Speci men Type: BLOOD SPECIMENOrdering Facility: [facility] Address: [address] [place], [place] [address] Performed By: #### 5 8410-2 ####[facility]ATORYCLIA [id number] [address] [place] WBC (Bld) [#/Vol] 10.19 10*3/uL Normal 3.70-11.00 [facility] Comment on above: Order Comment: Speci men Type: BLOOD SPECIMENOrdering Facility: [facility] Address: [address] [place] [address] Performed By: #### 5 8410-2 ####[facility]ATORYCLIA [id number] [address] [place] FERRITIN BLDon 06-18-2021 Ferritin [Mass/Vol] 600.9 ng/mL High 30.3-565.7 [facility] Comment on above: Order Comment: Speci men Type: BLOOD SPECIMENOrdering Facility: [facility] Address: [address] [place] [address] Performed By: #### S ERFOL, IRON, FERR ####[facility]ATORYCLIA [id number] [address] FOLATE SERUMon 06-18-2021 Folate [Mass/Vol] 14.3 ng/mL Normal >4.7 [facility] Comment on above: Order Comment: Speci men Type: BLOOD SPECIMENOrdering Facility: [facility] Address: [address] [place] [address] Performed By: #### S ERFOL, IRON, FERR ####[facility]ATORYCLIA [id number] [address] Gas and Carbon monoxide pane l (BldV)on 06-18-2021 Base excess Calc (BldV) [Moles/Vol] 0.5 mmol/L Normal 0-2 [facility] Comment on above: Order Comment: Speci men Type: VENOUS BLOOD SPECIMENOrdering Facility: [facility] Address: [address] [place] [address] Performed By: #### 2 4344-4 ####[facility]ATORYCLIA [id number] [address] Body temperature 97.34 [degF] Normal [facility] Comment on above: Order Comment: Speci men Type: VENOUS BLOOD SPECIMENOrdering Facility: [facility] Address: [address] [place] [address] Performed By: #### 2 4344-4 ####[facility]ORATORYCLIA [id number] [address] OF [facility] CALCIUM IONIZED, PH CORRECTED 1.26 mmol/L Normal 1.08-1.30 [facility] Comment on above: Order Comment: Speci men Type: VENOUS BLOOD SPECIMENOrdering Facility: [facility] Address: [address] [place] [address] Performed By: #### 2 4344-4 ####[facility]ATORYCLIA [id number] [address] [place] Calcium.ionized (BldV) [Mass/Vol] 1.25 mmol/L Normal 1.08-1.30 [facility] Comment on above: Order Comment: Speci men Type: VENOUS BLOOD SPECIMENOrdering Facility: [facility] Address: [address] [place] [address] Performed By: #### 2 4344-4 ####[facility]ATORYCLIA [id number] [address] [place] Carboxyhemoglobin (BldV) [Mass fraction] 1.5 % Normal 0.0-2.0 [facility] Comment on above: Order Comment: Speci men Type: VENOUS BLOOD SPECIMENOrdering Facility: [facility] Address: [address] [place] [address] Result Comment: Carb oxyhemoglobin Reference Range for Smokers: 2.0-8.0% Performed By: #### 2 4344-4 ####[facility]ATORYCLIA [id number] [address] [place] CO2 (BldV) [Partial pressure] 38 mm[Hg] Low 42-55 [facility] Comment on above: Order Comment: Speci men Type: VENOUS BLOOD SPECIMENOrdering Facility: [facility] Address: [address] [address] Performed By: #### 2 4344-4 ####[facility]ORATORYCLIA [id number] [address] CO2 [Moles/Vol] 22.9 mmol/L Low 25-29 [facility] Comment on above: Order Comment: Speci men Type: VENOUS BLOOD SPECIMENOrdering Facility: [facility] Address: [address] [place] [address] Performed By: #### 2 4344-4 ####[facility]ATORYCLIA [id number] [address] CO2 adjusted to patient's actual temperature (BldV) [Partial pressure] 37 mmHg Low 42-55 [facility] Comment on above: Order Comment: Speci men Type: VENOUS BLOOD SPECIMENOrdering Facility: [facility] Address: [address] [place] [address] Performed By: #### 2 4344-4 ####[facility] LABORATORYCLIA [id number] [address] [place] [facility] Glucose [Mass/Vol] 103 mg/dL Normal 60-105 [facility] Comment on above: Order Comment: Speci men Type: VENOUS BLOOD SPECIMENOrdering Facility: [facility] Address: [address] [place] [address] Performed By: #### 2 4344-4 ####[facility] LABORATORYCLIA [id number] [address] [place] HCO3 (Bld) [Moles/Vol] 24.4 mmol/L Normal 24-28 [facility] Comment on above: Order Comment: Speci men Type: VENOUS BLOOD SPECIMENOrdering Facility: [facility] Address: [address] [place], [place] [address] Performed By: #### 2 4344-4 ####[facility] LABORATORYCLIA [id number] [place] [address] [place] Hematocrit (Bld) [Volume fraction] 28.7 % Low 39.0-51.0 [facility] Comment on above: Order Comment: Speci men Type: VENOUS BLOOD SPECIMENOrdering Facility: [facility] Address: [address] [address] Performed By: #### 2 4344-4 ####[facility] LABORATORYCLIA [id number] [place] [address] [place] Hemoglobin (Bld) [Mass/Vol] 9.3 g/dL Low 13.0-17.0 [facility] Comment on above: Order Comment: Speci men Type: VENOUS BLOOD SPECIMENOrdering Facility: [facility] Address: [address] [address] Performed By: #### 2 4344-4 ####[facility]ORATORYCLIA [id number] [address] [place] Methemoglobin (Bld) [Mass fraction] % Normal 0.0-1.5 [facility] Comment on above: Order Comment: Speci men Type: VENOUS BLOOD SPECIMENOrdering Facility: [facility] Address: [address] [place] [address] Performed By: #### 2 4344-4 ####[facility]ATORYCLIA [id number] [address] [place] O2 THERAPY Ventilator Normal [facility] Comment on above: Order Comment: Speci men Type: VENOUS BLOOD SPECIMENOrdering Facility: [facility] Address: [address] [address] Performed By: #### 2 4344-4 ####[facility] [facility]ORATORYCLIA [id number] [address] [place] Oxygen (BldV) [Partial pressure] 37 mm[Hg] Normal 35-45 [facility] Comment on above: Order Comment: Speci men Type: VENOUS BLOOD SPECIMENOrdering Facility: [facility] Address: [address] [address] Performed By: #### 2 4344-4 ####[facility] [facility]ATORYCLIA [id number] [address] [place] Oxygen adjusted to patient's actual temperature (BldV) [Partial pressure] 35.1 mmHg Normal 35-45 [facility] Comment on above: Order Comment: Speci men Type: VENOUS BLOOD SPECIMENOrdering Facility: [facility] Address: [address] [place] [address] Performed By: #### 2 4344-4 ####[facility]ORATORYCLIA [id number] [address] [place] Oxygen saturation in Blood 67.1 % Normal 60-85 [facility] Comment on above: Order Comment: Speci men Type: VENOUS BLOOD SPECIMENOrdering Facility: [facility] Address: [address] [place] [address] Performed By: #### 2 4344-4 ####[facility] LABORATORYCLIA [id number] [address] Oxyhemoglobin (BldV) [Mass fraction] 66 % Normal 60-85 [facility] Comment on above: Order Comment: Speci men Type: VENOUS BLOOD SPECIMENOrdering Facility: [facility] Address: [address] [place] [address] Performed By: #### 2 4344-4 ####[facility]ATORYCLIA [id number] [address] [place] pH (BldV) 7.42 [pH] Normal 7.32-7.42 [facility] Comment on above: Order Comment: Speci men Type: VENOUS BLOOD SPECIMENOrdering Facility: [facility] Address: [address] [place] [address] Performed By: #### 2 4344-4 ####[facility]ATORYCLIA [id number] [address] [place] pH adjusted to patient's actual temperature (BldV) 7.43 High 7.32-7.42 [facility] Comment on above: Order Comment: Speci men Type: VENOUS BLOOD SPECIMENOrdering Facility: [facility] Address: [address] [address] Performed By: #### 2 4344-4 ####[facility]ORATORYCLIA [id number] [address] STATES OF [facility] Potassium [Moles/Vol] 4.0 mmol/L Normal 3.5-5.0 [facility] Comment on above: Order Comment: Speci men Type: VENOUS BLOOD SPECIMENOrdering Facility: [facility] Address: [address] [place] [address] Performed By: #### 2 4344-4 ####[facility]ORATORYCLIA [id number] [address] STATES [facility] Sodium [Moles/Vol] 146 mmol/L High 136-144 [facility] Comment on above: Order Comment: Speci men Type: VENOUS BLOOD SPECIMENOrdering Facility: [facility] Address: [address] [place] [address] Performed By: #### 2 4344-4 ####[facility]ORATORYCLIA [id number] [address] OF [facility] HEMOGLOBIN (HGB)on Hemoglobin (Bld) [Mass/Vol] 9.2 g/dL Low 13.0-17.0 [facility] Comment on above: Order Comment: Speci men Type: BLOOD SPECIMENOrdering Facility: [facility] Address: [address] [place] [address] Performed By: #### H GB ####[facility] LABORATORYCLIA [id number] [address] [place] IRON + TIBCon 06-18-2021 Iron [Mass/Vol] 27 ug/dL Low 41-186 [facility] Comment on above: Order Comment: Speci men Type: BLOOD SPECIMENOrdering Facility: [facility] Address: [address] [place] [address] Performed By: #### S ERFOL, IRON, FERR ####[facility]ORATORYCLIA [id number] [address] [place] Iron binding capacity [Mass/Vol] 141 ug/dL Low 232-386 [facility] Comment on above: Order Comment: Speci men Type: BLOOD SPECIMENOrdering Facility: [facility] Address: [address] [place] [address] Performed By: #### S ERFOL, IRON, FERR ####[facility]ORATORYCLIA [id number] [address] Iron saturation [Mass fraction] 19 % Normal 15-57 [facility] Comment on above: Order Comment: Speci men Type: BLOOD SPECIMENOrdering Facility: [facility] Address: [address] [place] [address] Performed By: #### S ERFOL, IRON, FERR ####[facility]ORATORYCLIA [id number] [address] Magnesium SerPl-mCncon 06-18 Magnesium [Mass/Vol] 2.5 mg/dL High 1.7-2.3 [facility] Comment on above: Order Comment: Speci men Type: BLOOD SPECIMENOrdering Facility: [facility] Address: [address] [place] [address] Performed By: #### 2 4321-2, , 2777 ####[facility]ORATORYCLIA [id number] [address] OF [facility] NURSING PROGon 06-18-2021 NURSING PROG Normal [facility] Phosphate SerPl-mCncon 06-18 Phosphate [Mass/Vol] 3.0 mg/dL Normal 2.7-4.8 [facility] Comment on above: Order Comment: Speci men Type: BLOOD SPECIMENOrdering Facility: [facility] Address: [address] [place] [address] Performed By: #### 2 4321-2, 54974-2, 2777-1 ####[facility]ATORYCLIA [id number] [address] THERAPY NTon 06-18-2021 THERAPY NT Normal [facility] aPTT PPPon 06-18-2021 aPTT Coag (PPP) [Time] 43.0 s High 23.0-32.4 [facility] Comment on above: Order Comment: Speci men Type: BLOOD SPECIMENOrdering Facility: [facility] Address: [address] [place] [address] Performed By: #### 1 4979-9 ####[facility]ATORYCLIA [id number] [address] aPTT Coag (PPP) [Time] 60.6 s High 23.0-32.4 [facility] Comment on above: Order Comment: Speci men Type: BLOOD SPECIMENOrdering Facility: [facility] Address: [address] [place] [address] Performed By: #### 1 4979-9 ####[facility]ORATORYCLIA [id number] [address] STATES OF [facility] aPTT Coag (PPP) [Time] 46.4 s High 23.0-32.4 [facility] Comment on above: Order Comment: Speci men Type: BLOOD SPECIMENOrdering Facility: [facility] Address: [address] [place] [address] Performed By: #### 1 4979-9 ####[facility]ORATORYCLIA [id number] [place] [address] [place] Basic metabolic 2000 panelon 06-17-2021 Anion gap [Moles/Vol] 7 mmol/L Low 9-18 [facility] Comment on above: Order Comment: Speci men Type: BLOOD SPECIMENOrdering Facility: [facility] Address: [address] [place] [address] Performed By: #### 2 951-2, 41630-1, 2777-1, 43804-2 ####[facility]ATORYCLIA [id number] [place] [address] [place] Calcium [Mass/Vol] 8.1 mg/dL Low 8.5-10.2 [facility] Comment on above: Order Comment: Speci men Type: BLOOD SPECIMENOrdering Facility: [facility] Address: [address] [place] [address] Performed By: #### 2 951-2, , 2776-05, 27524-7 ####[facility]ORATORYCLIA [id number] [place] [address] [place] Chloride [Moles/Vol] 113 mmol/L High 97-105 [facility] Comment on above: Order Comment: Speci men Type: BLOOD SPECIMENOrdering Facility: [facility] Address: [address] [place] [address] Performed By: #### 2 951-2, , 2776-05, ####[facility] CENTERCLIA [id number] [place] [address] [place] CO2 [Moles/Vol] 25 mmol/L Normal 22-30 [facility] Comment on above: Order Comment: Speci men Type: BLOOD SPECIMENOrdering Facility: [facility] Address: [address] [place] [address] Performed By: #### 2 951-2, , 2776-05, ####[facility]ATORYCLIA [id number] [place] [address] [place] Creatinine [Mass/Vol] 0.70 mg/dL Low 0.73-1.22 [facility] Comment on above: Order Comment: Speci men Type: BLOOD SPECIMENOrdering Facility: [facility] Address: [address] [place] [address] Performed By: #### 2 951-2, , 2776-05, 84161-9 ####[facility]ORATORYCLIA [id number] [place] [address] [place] GFR/1.73 sq M.predicted MDRD (S/P/Bld) [Vol rate/Area] mL/min/{1.73_m2} Normal [facility] Comment on above: Order Comment: Shira feldman Type: BLOOD SPECIMENOrdering Facility: [facility] Address: [address] [place], [place] [phone] Result Comment: >60e GFR (Estimated GFR) Units [...] actual GFR. Performed By: #### 2 951-2, 91802-7, 2777-, 92744-7 ####[facility] CENTERCLIA [id number] [place] [address] [place] Glucose [Mass/Vol] 122 mg/dL High 74-99 [facility] Comment on above: Order Comment: Shira feldman Type: BLOOD SPECIMENOrdering Facility: [facility] Address: [address] [place], [place] [phone] Result Comment: The [employer] (ADA) provides guidance for cutoff [...] Standards of Medical Care in Diabetes 2016, [employer]. Diabetes Care. 2016.39(Suppl 1). Performed By: #### 2 951-2, 27350-3, 2777-, 36086-6 ####[facility] LABORATORYCLIA [id number] [address] [id number] [place] Potassium [Moles/Vol] 3.5 mmol/L Low 3.7-5.1 [facility] Comment on above: Order Comment: Speci men Type: BLOOD SPECIMENOrdering Facility: [facility] Address: [address] [place] [address] Performed By: #### 2 951-2, 69978-7, 2777-1, 07589-9 ####[facility]ORATORYCLIA [id number] [address] [place] Urea nitrogen [Mass/Vol] 27 mg/dL High 9-24 [facility] Comment on above: Order Comment: Speci men Type: BLOOD SPECIMENOrdering Facility: [facility] Address: [address] [place] [address] Performed By: #### 2 951-2, 61175-9, 2777-1, 50414-7 ####[facility]ORATORYCLIA [id number] [address] CASE MANAGEMon 06-17-2021 CASE MANAGEM Normal [facility] CBC panel Auto (Bld)on 06-17 Erythrocyte distribution width (RBC) [Ratio] 15.9 % High 11.5-15.0 [facility] Comment on above: Order Comment: Speci men Type: BLOOD SPECIMENOrdering Facility: [facility] Address: [address] [place] [address] Performed By: #### 5 8410-2 ####[facility]ORATORYCLIA [id number] [address] STATES OF [facility] Hematocrit (Bld) [Volume fraction] 28.9 % Low 39.0-51.0 [facility] Comment on above: Order Comment: Speci men Type: BLOOD SPECIMENOrdering Facility: [facility] Address: [address] [place] [address] Performed By: #### 5 8410-2 ####[facility]ATORYCLIA [id number] [address] [place] Hemoglobin (Bld) [Mass/Vol] 8.8 g/dL Low 13.0-17.0 [facility] Comment on above: Order Comment: Speci men Type: BLOOD SPECIMENOrdering Facility: [facility] Address: [address] [place] [address] Performed By: #### 5 8410-2 ####[facility]ATORYCLIA [id number] [address] MCH (RBC) [Entitic mass] 28.4 pg Normal 26.0-34.0 [facility] Comment on above: Order Comment: Speci men Type: BLOOD SPECIMENOrdering Facility: [facility] Address: [address] [place] [address] Performed By: #### 5 8410-2 ####[facility]ATORYCLIA [id number] [address] MCHC (RBC) [Mass/Vol] 30.4 g/dL Low 30.5-36.0 [facility] Comment on above: Order Comment: Speci men Type: BLOOD SPECIMENOrdering Facility: [facility] Address: [address] [place] [address] Performed By: #### 5 8410-2 ####[facility]ATORYCLIA [id number] [address] MCV (RBC) [Entitic vol] 93.2 fL Normal 80.0-100.0 [facility] Comment on above: Order Comment: Speci men Type: BLOOD SPECIMENOrdering Facility: [facility] Address: [address] [place] [place] [address] Performed By: #### 5 8410-2 ####[facility]ORATORYCLIA [id number] [address] Nucleated RBC (Bld) [#/Vol] 10*3/uL Normal <0.01 [facility] Comment on above: Order Comment: Speci men Type: BLOOD SPECIMENOrdering Facility: [facility] Address: [address] [place] [address] Performed By: #### 5 8410-2 ####[facility]ORATORYCLIA [id number] [address] [place] Platelet mean volume (Bld) [Entitic vol] 11.9 fL Normal 9.0-12.7 [facility] Comment on above: Order Comment: Speci men Type: BLOOD SPECIMENOrdering Facility: [facility] Address: [address] [place] [address] Performed By: #### 5 8410-2 ####[facility]ATORYCLIA [id number] [address] [place] Platelets (Bld) [#/Vol] 257 10*3/uL Normal 150-400 [facility] Comment on above: Order Comment: Speci men Type: BLOOD SPECIMENOrdering Facility: [facility] Address: [address] [place] [address] Performed By: #### 5 8410-2 ####[facility]ATORYCLIA [id number] [address] OF [facility] RBC (Bld) [#/Vol] 3.10 10*6/uL Low 4.20-6.00 [facility] Comment on above: Order Comment: Speci men Type: BLOOD SPECIMENOrdering Facility: [facility] Address: [address] [place] [address] Performed By: #### 5 8410-2 ####[facility]ATORYCLIA [id number] [address] [place] WBC (Bld) [#/Vol] 10.54 10*3/uL Normal 3.70-11.00 [facility] Comment on above: Order Comment: Speci men Type: BLOOD SPECIMENOrdering Facility: [facility] Address: [address] [place] [address] Performed By: #### 5 8410-2 ####[facility]ATORYCLIA [id number] [address] [place] HEMOGLOBIN (HGB)on 2 Hemoglobin (Bld) [Mass/Vol] 8.8 g/dL Low 13.0-17.0 [facility] Comment on above: Order Comment: Speci men Type: BLOOD SPECIMENOrdering Facility: [facility] Address: [address] [place] [address] Performed By: #### H GB ####[facility]ORATORYCLIA [id number] [address] [place] Magnesium SerPl-mCncon 06-17 Magnesium [Mass/Vol] 2.5 mg/dL High 1.7-2.3 [facility] Comment on above: Order Comment: Speci men Type: BLOOD SPECIMENOrdering Facility: [facility] Address: [address] [place] [address] Performed By: #### 2 951-2, , 2776-05, 52394-7 ####[facility]ATORYCLIA [id number] [address] [place] NURSING PROGon 06-17-2021 NURSING PROG Normal [facility] NURSING PROG Normal [facility] NURSING PROG Normal [facility] Phosphate SerPl-mCncon 06-17 Phosphate [Mass/Vol] 1.9 mg/dL Low 2.7-4.8 [facility] Comment on above: Order Comment: Speci men Type: BLOOD SPECIMENOrdering Facility: [facility] Address: [address] [place] [address] Performed By: #### 2 951-2, , 2776-05, 51670-5 ####[facility]ORYCLIA [id number] [address] [place] Sodium SerPl-sCncon 06-17-19 22 Sodium [Moles/Vol] 144 mmol/L Normal 136-144 [facility] Comment on above: Order Comment: Speci men Type: BLOOD SPECIMENOrdering Facility: [facility] Address: [address] [place] [address] Performed By: #### 2 951-2 ####[facility]ORYCLIA [id number] [address] STATES [facility] Sodium [Moles/Vol] 145 mmol/L High 136-144 [facility] Comment on above: Order Comment: Speci men Type: BLOOD SPECIMENOrdering Facility: [facility] Address: [address] [place] [address] Performed By: #### 2 951-2, 17414-7, 2777-1, 63648-3 ####[facility]ATORYCLIA [id number] [address] [place] aPTT PPPon 06-17-2021 aPTT Coag (PPP) [Time] 55.8 s High 23.0-32.4 [facility] Comment on above: Order Comment: Speci men Type: BLOOD SPECIMENOrdering Facility: [facility] Address: [address] [place] [address] Performed By: #### 1 4979-9 ####[facility]ORATORYCLIA [id number] [address] OF [facility] ARTERIAL BLOOD GASESon 06-16 Base excess Calc (Bld) [Moles/Vol] 3 mmol/L High 0-2 [facility] Comment on above: Order Comment: Speci men Type: ARTERIAL BLOOD SPECIMENOrdering Facility: [facility] Address: [address] [place] [address] Performed By: #### A LLBG ####[facility]ORATORYCLIA [id number] [address] [place] Body temperature 99.14 [degF] Normal [facility] Comment on above: Order Comment: Speci men Type: ARTERIAL BLOOD SPECIMENOrdering Facility: [facility] Address: [address] [place] [address] Performed By: #### A LLBG ####[facility]ORATORYCLIA [id number] [address] STATES OF [facility] CALCIUM IONIZED, PH CORRECTED 1.21 mmol/L Normal 1.08-1.30 [facility] Comment on above: Order Comment: Speci men Type: ARTERIAL BLOOD SPECIMENOrdering Facility: [facility] Address: [address] [place] [address] Performed By: #### A LLBG ####[facility]ORATORYCLIA [id number] [address] STATES [facility] Calcium.ionized (BldV) [Mass/Vol] 1.17 mmol/L Normal 1.08-1.30 [facility] Comment on above: Order Comment: Speci men Type: ARTERIAL BLOOD SPECIMENOrdering Facility: [facility] Address: [address] [place] [address] Performed By: #### A LLBG ####[facility]ATORYCLIA [id number] [address] Carboxyhemoglobin (BldA) [Mass fraction] 1.4 % Normal 0.0-2.0 [facility] Comment on above: Order Comment: Speci men Type: ARTERIAL BLOOD SPECIMENOrdering Facility: [facility] Address: [address] [place] [address] Result Comment: Carb oxyhemoglobin Reference Range for Smokers: 2.0-8.0% Performed By: #### A LLBG ####[facility]ORATORYCLIA [id number] [address] [place] CO2 (Bld) [Partial pressure] 38 mm Hg Normal 36-46 [facility] Comment on above: Order Comment: Speci men Type: ARTERIAL BLOOD SPECIMENOrdering Facility: [facility] Address: [address] [place] [address] Performed By: #### A LLBG ####[facility]ATORYCLIA [id number] [address] [place] CO2 [Moles/Vol] 24.5 mmol/L Normal 22-28 [facility] Comment on above: Order Comment: Speci men Type: ARTERIAL BLOOD SPECIMENOrdering Facility: [facility] Address: [address] [place] [address] Performed By: #### A LLBG ####[facility]ATORYCLIA [id number] [address] OF [facility] CO2 adjusted to patient's actual temperature (Bld) [Partial pressure] 38 mmHg Normal 36-46 [facility] Comment on above: Order Comment: Speci men Type: ARTERIAL BLOOD SPECIMENOrdering Facility: [facility] Address: [address] [address] Performed By: #### A LLBG ####[facility]ATORYCLIA [id number] [address] [place] Glucose [Mass/Vol] 147 mg/dL High 60-105 [facility] Comment on above: Order Comment: Speci men Type: ARTERIAL BLOOD SPECIMENOrdering Facility: [facility] Address: [address] [address] Performed By: #### A LLBG ####[facility]ATORYCLIA [id number] [address] [place] HCO3 (Bld) [Moles/Vol] 27 mmol/L High 22-26 [facility] Comment on above: Order Comment: Speci men Type: ARTERIAL BLOOD SPECIMENOrdering Facility: [facility] Address: [address] [address] Performed By: #### A LLBG ####[facility]ATORYCLIA [id number] [address] [place] Hematocrit (Bld) [Volume fraction] 31.8 % Low 39.0-51.0 [facility] Comment on above: Order Comment: Speci men Type: ARTERIAL BLOOD SPECIMENOrdering Facility: [facility] Address: [address] [address] Performed By: #### A LLBG ####[facility]ATORYCLIA [id number] [address] [place] Hemoglobin (Bld) [Mass/Vol] 10.3 g/dL Low 13.0-17.0 [facility] Comment on above: Order Comment: Speci men Type: ARTERIAL BLOOD SPECIMENOrdering Facility: [facility] Address: [address] [address] Performed By: #### A LLBG ####[facility]ORYCLIA [id number] [address] Methemoglobin (Bld) [Mass fraction] 1.0 % Normal 0.0-1.5 [facility] Comment on above: Order Comment: Speci men Type: ARTERIAL BLOOD SPECIMENOrdering Facility: [facility] Address: [address] [address] Performed By: #### A LLBG ####[facility]ORYCLIA [id number] [address] [place] O2 THERAPY Ventilator Normal [facility] Comment on above: Order Comment: Speci men Type: ARTERIAL BLOOD SPECIMENOrdering Facility: [facility] Address: [address] [place] [address] Performed By: #### A LLBG ####[facility]ORATORYCLIA [id number] [address] [place] Oxygen (Bld) [Partial pressure] 78 mm Hg Low 85-95 [facility] Comment on above: Order Comment: Speci men Type: ARTERIAL BLOOD SPECIMENOrdering Facility: [facility] Address: [address] [place] [address] Performed By: #### A LLBG ####[facility]ORATORYCLIA [id number] [address] Oxygen adjusted to patient's actual temperature (Bld) [Partial pressure] 79.7 mmHg Low 85-95 [facility] Comment on above: Order Comment: Speci men Type: ARTERIAL BLOOD SPECIMENOrdering Facility: [facility] Address: [address] [address] Performed By: #### A LLBG ####[facility]ATORYCLIA [id number] [address] [place] OXYGEN SATURATION, ARTERIAL 96 % Normal 95-98 [facility] Comment on above: Order Comment: Speci men Type: ARTERIAL BLOOD SPECIMENOrdering Facility: [facility] Address: [address] [address] Performed By: #### A LLBG ####[facility]ATORYCLIA [id number] [address] Oxyhemoglobin (BldA) [Mass fraction] 94 % Low 95-98 [facility] Comment on above: Order Comment: Speci men Type: ARTERIAL BLOOD SPECIMENOrdering Facility: [facility] Address: [address] [place] [address] Performed By: #### A LLBG ####[facility]ORATORYCLIA [id number] [address] [place] pH (Bld) 7.47 [pH] High 7.35-7.45 [facility] Comment on above: Order Comment: Speci men Type: ARTERIAL BLOOD SPECIMENOrdering Facility: [facility] Address: [address] [place] [address] Performed By: #### A LLBG ####[facility]ATORYCLIA [id number] [address] pH adjusted to patient's actual temperature (Bld) 7.46 High 7.35-7.45 [facility] Comment on above: Order Comment: Speci men Type: ARTERIAL BLOOD SPECIMENOrdering Facility: [facility] Address: [address] [place] [address] Performed By: #### A LLBG ####[facility]ATORYCLIA [id number] [address] [place] Potassium [Moles/Vol] 3.7 mmol/L Normal 3.5-5.0 [facility] Comment on above: Order Comment: Speci men Type: ARTERIAL BLOOD SPECIMENOrdering Facility: [facility] Address: [address] [place] [address] Performed By: #### A LLBG ####[facility]ATORYCLIA [id number] [address] [place] Sodium [Moles/Vol] 155 mmol/L High 136-144 [facility] Comment on above: Order Comment: Speci men Type: ARTERIAL BLOOD SPECIMENOrdering Facility: [facility] Address: [address] [place] [address] Performed By: #### A LLBG ####[facility]ORATORYCLIA [id number] [address] [place] Bacteria Spec Resp Culton Bacteria identified Respiratory culture Nom (Unsp spec) CULTURE, RESPIRATORY: Rare Normal respiratory chris present ORGANISM ID: 1 Few Yeast, not cryptococcus neoformans GRAM STAIN: No organisms seen Few Polymorphonuclear leukocytes Few Epithelial cells Abnormal [facility] Comment on above: Performed By: #### 3 2355-0 ####[facility]ATORYCLIA [id number] [address] [place] Basic metabolic 2000 panelon 06-16-2021 Anion gap [Moles/Vol] 9 mmol/L Normal 9-18 [facility] Comment on above: Order Comment: Speci men Type: BLOOD SPECIMENOrdering Facility: [facility] Address: [address] [place] [address] Performed By: #### 2 4321-2 ####[facility]ATORYCLIA [id number] [address] [place] Calcium [Mass/Vol] 8.4 mg/dL Low 8.5-10.2 [facility] Comment on above: Order Comment: Speci men Type: BLOOD SPECIMENOrdering Facility: [facility] Address: [address] [place] [address] Performed By: #### 2 4321-2 ####[facility]ATORYCLIA [id number] [address] [place] Chloride [Moles/Vol] 120 mmol/L High 97-105 [facility] Comment on above: Order Comment: Speci men Type: BLOOD SPECIMENOrdering Facility: [facility] Address: [address] [place] [address] Performed By: #### 2 4321-2 ####[facility]ORATORYCLIA [id number] [address] OF [facility] CO2 [Moles/Vol] 27 mmol/L Normal 22-30 [facility] Comment on above: Order Comment: Johni men Type: BLOOD SPECIMENOrdering Facility: [facility] Address: [address] [place] [address] Performed By: #### 2 4321-2 ####[facility]ATORYCLIA [id number] [address] [place] Creatinine [Mass/Vol] 0.75 mg/dL Normal 0.73-1.22 [facility] Comment on above: Order Comment: Speci men Type: BLOOD SPECIMENOrdering Facility: [facility] Address: [address] [place] [address] Performed By: #### 2 4321-2 ####[facility]ENTERCLIA [id number] [address] [place] GFR/1.73 sq M.predicted MDRD (S/P/Bld) [Vol rate/Area] mL/min/{1.73_m2} Normal [facility] Comment on above: Order Comment: Shira francia Type: BLOOD SPECIMENOrdering Facility: [facility] Address: [address] [place] [address] Result Comment: >60e GFR (Estimated GFR) Units [...] actual GFR. Performed By: #### 2 4321-2 ####[facility]ORATORYCLIA [id number] [address] [place] Glucose [Mass/Vol] 160 mg/dL High 74-99 [facility] Comment on above: Order Comment: Speci men Type: BLOOD SPECIMENOrdering Facility: [facility] Address: [address] [address] Result Comment: The [employer] (ADA) provides guidance for cutoff [...] Standards of Medical Care in Diabetes 2016, [employer]. Diabetes Care. 2016.39(Suppl 1). Performed By: #### 2 4321-2 ####[facility]ATORYCLIA [id number] [place] [address] [place] Potassium [Moles/Vol] 3.1 mmol/L Low 3.7-5.1 [facility] Comment on above: Order Comment: Speci men Type: BLOOD SPECIMENOrdering Facility: [facility] Address: [address] [address] Performed By: #### 2 1-2 ####[facility]ORATORYCLIA [id number] [place] [address] [place] Sodium [Moles/Vol] 156 mmol/L High 136-144 [facility] Comment on above: Order Comment: Speci men Type: BLOOD SPECIMENOrdering Facility: [facility] Address: [address] [address] Performed By: #### 2 1-2 ####[facility]ORATORYCLIA [id number] [place] [address] [place] Urea nitrogen [Mass/Vol] 33 mg/dL High 9-24 [facility] Comment on above: Order Comment: Speci men Type: BLOOD SPECIMENOrdering Facility: [facility] Address: [address] [address] Performed By: #### 2 4321-2 ####[facility]ORATORYCLIA [id number] [address] [place] CASE MANAGEMon 06-16-2021 CASE MANAGEM Normal [facility] CBC panel Auto (Bld)on 06-16 Erythrocyte distribution width (RBC) [Ratio] 15.9 % High 11.5-15.0 [facility] Comment on above: Order Comment: Speci men Type: BLOOD SPECIMENOrdering Facility: [facility] Address: [address] [place] [address] Performed By: #### 5 8410-2 ####[facility]ATORYCLIA [id number] [address] Hematocrit (Bld) [Volume fraction] 34.6 % Low 39.0-51.0 [facility] Comment on above: Order Comment: Speci men Type: BLOOD SPECIMENOrdering Facility: [facility] Address: [address] [place] [address] Performed By: #### 5 8410-2 ####[facility]ORATORYCLIA [id number] [address] Hemoglobin (Bld) [Mass/Vol] 10.2 g/dL Low 13.0-17.0 [facility] Comment on above: Order Comment: Speci men Type: BLOOD SPECIMENOrdering Facility: [facility] Address: [address] [place] [address] Performed By: #### 5 8410-2 ####[facility]ATORYCLIA [id number] [address] MCH (RBC) [Entitic mass] 28.5 pg Normal 26.0-34.0 [facility] Comment on above: Order Comment: Speci men Type: BLOOD SPECIMENOrdering Facility: [facility] Address: [address] [place] [address] Performed By: #### 5 8410-2 ####[facility]ORATORYCLIA [id number] [place] [address] [place] MCHC (RBC) [Mass/Vol] 29.5 g/dL Low 30.5-36.0 [facility] Comment on above: Order Comment: Speci men Type: BLOOD SPECIMENOrdering Facility: [facility] Address: [address] [place] [address] Performed By: #### 5 8410-2 ####[facility]ATORYCLIA [id number] [address] [place] MCV (RBC) [Entitic vol] 96.6 fL Normal 80.0-100.0 [facility] Comment on above: Order Comment: Speci men Type: BLOOD SPECIMENOrdering Facility: [facility] Address: [address] [place] [address] Performed By: #### 5 8410-2 ####[facility]ATORYCLIA [id number] [address] [place] Nucleated RBC (Bld) [#/Vol] 10*3/uL Normal <0.01 [facility] Comment on above: Order Comment: Speci men Type: BLOOD SPECIMENOrdering Facility: [facility] Address: [address] [place] [address] Performed By: #### 5 8410-2 ####[facility]ATORYCLIA [id number] [address] [place] Platelet mean volume (Bld) [Entitic vol] 11.9 fL Normal 9.0-12.7 [facility] Comment on above: Order Comment: Speci men Type: BLOOD SPECIMENOrdering Facility: [facility] Address: [address] [place] [place] [address] Performed By: #### 5 8410-2 ####[facility]ATORYCLIA [id number] [address] [place] Platelets (Bld) [#/Vol] 269 10*3/uL Normal 150-400 [facility] Comment on above: Order Comment: Speci men Type: BLOOD SPECIMENOrdering Facility: [facility] Address: [address] [place] [address] Performed By: #### 5 8410-2 ####[facility]ATORYCLIA [id number] [address] STATES OF [facility] RBC (Bld) [#/Vol] 3.58 10*6/uL Low 4.20-6.00 [facility] Comment on above: Order Comment: Speci men Type: BLOOD SPECIMENOrdering Facility: [facility] Address: [address] [place] [address] Performed By: #### 5 8410-2 ####[facility]ORATORYCLIA [id number] [address] OF [facility] WBC (Bld) [#/Vol] 13.11 10*3/uL High 3.70-11.00 [facility] Comment on above: Order Comment: Speci men Type: BLOOD SPECIMENOrdering Facility: [facility] Address: [address] [place] [address] Performed By: #### 5 8410-2 ####[facility]ATORYCLIA [id number] [address] [place] CONSULTon 06-16-2021 CONSULT Normal [facility] CONSULT PROGon 06-16-2021 CONSULT PROG Normal [facility] CT BRAIN WO IVCONon 06-16-[address] BRAIN WO IVCON Normal [facility] HEMOGLOBIN (HGB)on 2 Hemoglobin (Bld) [Mass/Vol] 8.9 g/dL Low 13.0-17.0 [facility] Comment on above: Order Comment: Speci men Type: BLOOD SPECIMENOrdering Facility: [facility] Address: [address] [place] [address] Performed By: #### H GB ####[facility]ATORYCLIA [id number] [address] Hemoglobin (Bld) [Mass/Vol] 9.6 g/dL Low 13.0-17.0 [facility] Comment on above: Order Comment: Speci men Type: BLOOD SPECIMENOrdering Facility: [facility] Address: [address] [place] [address] Performed By: #### H GB ####[facility]ORATORYCLIA [id number] [place] [address] [place] Magnesium SerPl-mCncon 06-16 Magnesium [Mass/Vol] 2.7 mg/dL High 1.7-2.3 [facility] Comment on above: Order Comment: Speci men Type: BLOOD SPECIMENOrdering Facility: [facility] Address: [address] [place] [address] Performed By: #### 1 9123-9 ####[facility]ATORYCLIA [id number] [place] [address] [place] NURSING PROGon 06-16-2021 NURSING PROG Normal [facility] NUTRITIONon 06-16-2021 NUTRITION Normal [facility] Phosphate SerPl-mCncon 06-16 Phosphate [Mass/Vol] 1.4 mg/dL Low 2.7-4.8 [facility] Comment on above: Order Comment: Speci men Type: BLOOD SPECIMENOrdering Facility: [facility] Address: [address] [place] [address] Performed By: #### 2 777-1 ####[facility]ATORYCLIA [id number] [address] [place] STAPH AUREUS PCRon 2 S. aureus and MRSA panel MEGAN+probe (Nose) Normal Negative [facility] Comment on above: Order Comment: Speci men Type: SWAB OF INTERNAL NOSEOrdering Facility: [facility] Address: [address] [place] [address] Result Comment: Nega tive for Staphylococcus aureus by PCR.Negative for MRSA by PCR Performed By: #### S APCR ####[facility]ATORYCLIA [id number] [place] [address] [place] Sodium SerPl-sCncon 06-16-19 Sodium [Moles/Vol] 150 mmol/L High 136-144 [facility] Comment on above: Order Comment: Speci men Type: BLOOD SPECIMENOrdering Facility: [facility] Address: [address] [place] [address] Performed By: #### 2 951-2 ####[facility]ORYCLIA [id number] [address] [place] OF [facility] Sodium [Moles/Vol] 153 mmol/L High 136-144 [facility] Comment on above: Order Comment: Speci men Type: BLOOD SPECIMENOrdering Facility: [facility] Address: [address] [place] [address] Performed By: #### 2 951-2 ####[facility]ATORYCLIA [id number] [address] OF [facility] Sodium [Moles/Vol] 158 mmol/L High 136-144 [facility] Comment on above: Order Comment: Speci men Type: BLOOD SPECIMENOrdering Facility: [facility] Address: [address] [place] [address] Performed By: #### 2 951-2 ####[facility]ATORYCLIA [id number] [address] [place] aPTT PPPon 06-16-2021 aPTT Coag (PPP) [Time] 61.8 s High 23.0-32.4 [facility] Comment on above: Order Comment: Speci men Type: BLOOD SPECIMENOrdering Facility: [facility] Address: [address] [place] [address] Performed By: #### 1 4979-9 ####[facility]ATORYCLIA [id number] [address] [place] aPTT Coag (PPP) [Time] 57.6 s High 23.0-32.4 [facility] Comment on above: Order Comment: Speci men Type: BLOOD SPECIMENOrdering Facility: [facility] Address: [address] [place] [address] Performed By: #### 1 4979-9 ####[facility]ORYCLIA [id number] [address] [place] ALLIED HEALTHon 06-15-2021 ALLIED HEALTH Normal [facility] ALLIED HEALTH Normal [facility] ALLIED HEALTH Normal [facility] ALLIED HEALTH Normal [facility] ARTERIAL BLOOD GASESon 06-15 Base excess Calc (Bld) [Moles/Vol] 3 mmol/L High 0-2 [facility] Comment on above: Order Comment: Speci men Type: ARTERIAL BLOOD SPECIMENOrdering Facility: [facility] Address: [address] [place] [address] Performed By: #### A LLBG ####[facility]ORYCLIA [id number] [address] STATES [facility] Body temperature 99.5 [degF] Normal [facility] Comment on above: Order Comment: Speci men Type: ARTERIAL BLOOD SPECIMENOrdering Facility: [facility] Address: [address] [place] [address] Performed By: #### A LLBG ####[facility]ATORYCLIA [id number] [place] [address] [place] CALCIUM IONIZED, PH CORRECTED 1.34 mmol/L High 1.08-1.30 [facility] Comment on above: Order Comment: Speci men Type: ARTERIAL BLOOD SPECIMENOrdering Facility: [facility] Address: [address] [place] [address] Performed By: #### A LLBG ####[facility]ATORYCLIA [id number] [place] [address] [place] Calcium.ionized (BldV) [Mass/Vol] 1.29 mmol/L Normal 1.08-1.30 [facility] Comment on above: Order Comment: Speci men Type: ARTERIAL BLOOD SPECIMENOrdering Facility: [facility] Address: [address] [place] [address] Performed By: #### A LLBG ####[facility]ATORYCLIA [id number] [place] [address] [place] Carboxyhemoglobin (BldA) [Mass fraction] 1.3 % Normal 0.0-2.0 [facility] Comment on above: Order Comment: Speci men Type: ARTERIAL BLOOD SPECIMENOrdering Facility: [facility] Address: [address] [place] [address] Result Comment: Carb oxyhemoglobin Reference Range for Smokers: 2.0-8.0% Performed By: #### A LLBG ####[facility]ORYCLIA [id number] [address] CO2 (Bld) [Partial pressure] 37 mm Hg Normal 36-46 [facility] Comment on above: Order Comment: Speci men Type: ARTERIAL BLOOD SPECIMENOrdering Facility: [facility] Address: [address] [place] [address] Performed By: #### A LLBG ####[facility]ORYCLIA [id number] [address] [place] CO2 [Moles/Vol] 24.6 mmol/L Normal 22-28 [facility] Comment on above: Order Comment: Speci men Type: ARTERIAL BLOOD SPECIMENOrdering Facility: [facility] Address: [address] [place] [address] Performed By: #### A LLBG ####[facility]ORYCLIA [id number] [address] [place] CO2 adjusted to patient's actual temperature (Bld) [Partial pressure] 38 mmHg Normal 36-46 [facility] Comment on above: Order Comment: Speci men Type: ARTERIAL BLOOD SPECIMENOrdering Facility: [facility] Address: [address] [place] [address] Performed By: #### A LLBG ####[facility]ORYCLIA [id number] [address] [place] FIO2 100 % Normal [facility] Comment on above: Order Comment: Speci men Type: ARTERIAL BLOOD SPECIMENOrdering Facility: [facility] Address: [address] [place] [address] Performed By: #### A LLBG ####[facility]ORYCLIA [id number] [address] [place] Glucose [Mass/Vol] 159 mg/dL High 60-105 [facility] Comment on above: Order Comment: Speci men Type: ARTERIAL BLOOD SPECIMENOrdering Facility: [facility] Address: [address] [place] [address] Performed By: #### A LLBG ####[facility]ATORYCLIA [id number] [place] [address] [place] HCO3 (Bld) [Moles/Vol] 27 mmol/L High 22-26 [facility] Comment on above: Order Comment: Speci men Type: ARTERIAL BLOOD SPECIMENOrdering Facility: [facility] Address: [address] [place] [address] Performed By: #### A LLBG ####[facility]ATORYCLIA [id number] [address] [place] Hematocrit (Bld) [Volume fraction] 31.0 % Low 39.0-51.0 [facility] Comment on above: Order Comment: Speci men Type: ARTERIAL BLOOD SPECIMENOrdering Facility: [facility] Address: [address] [place] [address] Performed By: #### A LLBG ####[facility]ATORYCLIA [id number] [address] [place] Hemoglobin (Bld) [Mass/Vol] 10.0 g/dL Low 13.0-17.0 [facility] Comment on above: Order Comment: Speci men Type: ARTERIAL BLOOD SPECIMENOrdering Facility: [facility] Address: [address] [address] Performed By: #### A LLBG ####[facility]ATORYCLIA [id number] [address] [place] Methemoglobin (Bld) [Mass fraction] % Normal 0.0-1.5 [facility] Comment on above: Order Comment: Speci men Type: ARTERIAL BLOOD SPECIMENOrdering Facility: [facility] Address: [address] [place] [address] Performed By: #### A LLBG ####[facility]ORATORYCLIA [id number] [address] O2 THERAPY Ventilator Normal [facility] Comment on above: Order Comment: Speci men Type: ARTERIAL BLOOD SPECIMENOrdering Facility: [facility] Address: [address] [address] Performed By: #### A LLBG ####[facility]ORYCLIA [id number] [address] OF [facility] Oxygen (Bld) [Partial pressure] 279 mm Hg High 85-95 [facility] Comment on above: Order Comment: Speci men Type: ARTERIAL BLOOD SPECIMENOrdering Facility: [facility] Address: [address] [place] [address] Performed By: #### A LLBG ####[facility]ATORYCLIA [id number] [address] Oxygen adjusted to patient's actual temperature (Bld) [Partial pressure] 281 mmHg High 85-95 [facility] Comment on above: Order Comment: Speci men Type: ARTERIAL BLOOD SPECIMENOrdering Facility: [facility] Address: [address] [place] [address] Performed By: #### A LLBG ####[facility]ATORYCLIA [id number] [address] [place] OXYGEN SATURATION, ARTERIAL 100 % High 95-98 [facility] Comment on above: Order Comment: Speci men Type: ARTERIAL BLOOD SPECIMENOrdering Facility: [facility] Address: [address] [address] Performed By: #### A LLBG ####[facility]ATORYCLIA [id number] [address] Oxyhemoglobin (BldA) [Mass fraction] 98 % Normal 95-98 [facility] Comment on above: Order Comment: Speci men Type: ARTERIAL BLOOD SPECIMENOrdering Facility: [facility] Address: [address] [place] [address] Performed By: #### A LLBG ####[facility]ORATORYCLIA [id number] [address] [place] pH (Bld) 7.47 [pH] High 7.35-7.45 [facility] Comment on above: Order Comment: Speci men Type: ARTERIAL BLOOD SPECIMENOrdering Facility: [facility] Address: [address] [place] [address] Performed By: #### A LLBG ####[facility]ATORYCLIA [id number] [address] [place] pH adjusted to patient's actual temperature (Bld) 7.46 High 7.35-7.45 [facility] Comment on above: Order Comment: Speci men Type: ARTERIAL BLOOD SPECIMENOrdering Facility: [facility] Address: [address] [place] [address] Performed By: #### A LLBG ####[facility]ORATORYCLIA [id number] [address] [place] Potassium [Moles/Vol] 3.6 mmol/L Normal 3.5-5.0 [facility] Comment on above: Order Comment: Speci men Type: ARTERIAL BLOOD SPECIMENOrdering Facility: [facility] Address: [address] [place] [address] Performed By: #### A LLBG ####[facility]ATORYCLIA [id number] [address] [place] Sodium [Moles/Vol] 162 mmol/L High 136-144 [facility] Comment on above: Order Comment: Speci men Type: ARTERIAL BLOOD SPECIMENOrdering Facility: [facility] Address: [address] [place] [address] Performed By: #### A LLBG ####[facility]ORATORYCLIA [id number] [place] [address] [place] Base excess Calc (Bld) [Moles/Vol] 4 mmol/L High 0-2 [facility] Comment on above: Order Comment: Speci men Type: ARTERIAL BLOOD SPECIMENOrdering Facility: [facility] Address: [address] [place] [address] Performed By: #### A LLBG ####[facility]ATORYCLIA [id number] [address] Body temperature 100.58 [degF] Normal [facility] Comment on above: Order Comment: Speci men Type: ARTERIAL BLOOD SPECIMENOrdering Facility: [facility] Address: [address] [place] [address] Performed By: #### A LLBG ####[facility]ORATORYCLIA [id number] [address] OF [facility] CALCIUM IONIZED, PH CORRECTED 1.34 mmol/L High 1.08-1.30 [facility] Comment on above: Order Comment: Speci men Type: ARTERIAL BLOOD SPECIMENOrdering Facility: [facility] Address: [address] [place] [address] Performed By: #### A LLBG ####[facility]ORATORYCLIA [id number] [address] Calcium.ionized (BldV) [Mass/Vol] 1.33 mmol/L High 1.08-1.30 [facility] Comment on above: Order Comment: Speci men Type: ARTERIAL BLOOD SPECIMENOrdering Facility: [facility] Address: [address] [place] [address] Performed By: #### A LLBG ####[facility]ATORYCLIA [id number] [address] Carboxyhemoglobin (BldA) [Mass fraction] 1.5 % Normal 0.0-2.0 [facility] Comment on above: Order Comment: Speci men Type: ARTERIAL BLOOD SPECIMENOrdering Facility: [facility] Address: [address] [place] [address] Result Comment: Carb oxyhemoglobin Reference Range for Smokers: 2.0-8.0% Performed By: #### A LLBG ####[facility]ATORYCLIA [id number] [address] CO2 (Bld) [Partial pressure] 46 mm Hg Normal 36-46 [facility] Comment on above: Order Comment: Speci men Type: ARTERIAL BLOOD SPECIMENOrdering Facility: [facility] Address: [address] [place] [address] Performed By: #### A LLBG ####[facility] LABORATORYCLIA [id number] [address] [place] CO2 [Moles/Vol] 26.4 mmol/L Normal 22-28 [facility] Comment on above: Order Comment: Speci men Type: ARTERIAL BLOOD SPECIMENOrdering Facility: [facility] Address: [address] [place] [address] Performed By: #### A LLBG ####[facility]ATORYCLIA [id number] [address] [place] CO2 adjusted to patient's actual temperature (Bld) [Partial pressure] 48 mmHg High 36-46 [facility] Comment on above: Order Comment: Speci men Type: ARTERIAL BLOOD SPECIMENOrdering Facility: [facility] Address: [address] [place] [address] Performed By: #### A LLBG ####[facility]ATORYCLIA [id number] [address] [place] FIO2 100 % Normal [facility] Comment on above: Order Comment: Speci men Type: ARTERIAL BLOOD SPECIMENOrdering Facility: [facility] Address: [address] [place] [address] Performed By: #### A LLBG ####[facility]ATORYCLIA [id number] [address] [place] Glucose [Mass/Vol] 132 mg/dL High 60-105 [facility] Comment on above: Order Comment: Speci men Type: ARTERIAL BLOOD SPECIMENOrdering Facility: [facility] Address: [address] [place] [address] Performed By: #### A LLBG ####[facility]ATORYCLIA [id number] [address] OF [facility] HCO3 (Bld) [Moles/Vol] 29 mmol/L High 22-26 [facility] Comment on above: Order Comment: Speci men Type: ARTERIAL BLOOD SPECIMENOrdering Facility: [facility] Address: [address] [place] [address] Performed By: #### A LLBG ####[facility]ATORYCLIA [id number] [address] OF [facility] Hematocrit (Bld) [Volume fraction] 32.3 % Low 39.0-51.0 [facility] Comment on above: Order Comment: Speci men Type: ARTERIAL BLOOD SPECIMENOrdering Facility: [facility] Address: [address] [place] [address] Performed By: #### A LLBG ####[facility]ATORYCLIA [id number] [address] STATES OF [facility] Hemoglobin (Bld) [Mass/Vol] 10.4 g/dL Low 13.0-17.0 [facility] Comment on above: Order Comment: Speci men Type: ARTERIAL BLOOD SPECIMENOrdering Facility: [facility] Address: [address] [place] [address] Performed By: #### A LLBG ####[facility]ATORYCLIA [id number] [address] Methemoglobin (Bld) [Mass fraction] % Normal 0.0-1.5 [facility] Comment on above: Order Comment: Speci men Type: ARTERIAL BLOOD SPECIMENOrdering Facility: [facility] Address: [address] [place] [address] Performed By: #### A LLBG ####[facility]ATORYCLIA [id number] [address] O2 THERAPY NR=Non-Rebreather Mask Normal [facility] Comment on above: Order Comment: Speci men Type: ARTERIAL BLOOD SPECIMENOrdering Facility: [facility] Address: [address] [place] [address] Performed By: #### A LLBG ####[facility]ATORYCLIA [id number] [address] OF [place] Oxygen (Bld) [Partial pressure] 130 mm Hg High 85-95 [facility] Comment on above: Order Comment: Speci men Type: ARTERIAL BLOOD SPECIMENOrdering Facility: [facility] Address: [address] [address] Performed By: #### A LLBG ####[facility]ATORYCLIA [id number] [address] OF [place] Oxygen adjusted to patient's actual temperature (Bld) [Partial pressure] 136 mmHg High 85-95 [facility] Comment on above: Order Comment: Speci men Type: ARTERIAL BLOOD SPECIMENOrdering Facility: [facility] Address: [address] [place] [address] Performed By: #### A LLBG ####[facility]ATORYCLIA [id number] [address] [place] OXYGEN SATURATION, ARTERIAL 99 % High 95-98 [facility] Comment on above: Order Comment: Speci men Type: ARTERIAL BLOOD SPECIMENOrdering Facility: [facility] Address: [address] [place] [address] Performed By: #### A LLBG ####[facility]ATORYCLIA [id number] [address] [place] Oxyhemoglobin (BldA) [Mass fraction] 97 % Normal 95-98 [facility] Comment on above: Order Comment: Speci men Type: ARTERIAL BLOOD SPECIMENOrdering Facility: [facility] Address: [address] [address] Performed By: #### A LLBG ####[facility]ATORYCLIA [id number] [address] [place] pH (Bld) 7.41 [pH] Normal 7.35-7.45 [facility] Comment on above: Order Comment: Speci men Type: ARTERIAL BLOOD SPECIMENOrdering Facility: [facility] Address: [address] [place] [address] Performed By: #### A LLBG ####[facility]ATORYCLIA [id number] [address] pH adjusted to patient's actual temperature (Bld) 7.40 Normal 7.35-7.45 [facility] Comment on above: Order Comment: Speci men Type: ARTERIAL BLOOD SPECIMENOrdering Facility: [facility] Address: [address] [place] [address] Performed By: #### A LLBG ####[facility]ATORYCLIA [id number] [address] Potassium [Moles/Vol] 3.8 mmol/L Normal 3.5-5.0 [facility] Comment on above: Order Comment: Speci men Type: ARTERIAL BLOOD SPECIMENOrdering Facility: [facility] Address: [address] [place] [address] Performed By: #### A LLBG ####[facility]ATORYCLIA [id number] [address] Sodium [Moles/Vol] 166 mmol/L High 136-144 [facility] Comment on above: Order Comment: Speci men Type: ARTERIAL BLOOD SPECIMENOrdering Facility: [facility] Address: [address] [place] [address] Performed By: #### A LLBG ####[facility]ATORYCLIA [id number] [address] OF [place] Bacteria Bld Culton 06-15-19 22 Bacteria identified Cx Nom (Bld) CULTURE, BLOOD: No growth 5 days Normal [facility] Comment on above: Performed By: #### 6 00-7 ####[facility]ATORYCLIA [id number] [address] [place] Basic metabolic 2000 panelon 06-15-2021 Anion gap [Moles/Vol] 9 mmol/L Normal 9-18 [facility] Comment on above: Order Comment: Speci men Type: BLOOD SPECIMEN Performed By: #### 2 4321-2, 2776-05, ####[facility]ATORYCLIA [id number] [address] OF [facility] Calcium [Mass/Vol] 9.0 mg/dL Normal 8.5-10.2 [facility] Comment on above: Order Comment: Speci men Type: BLOOD SPECIMEN Performed By: #### 2 4321-2, 2776-05, ####[facility]ATORYCLIA [id number] [address] OF [facility] Chloride [Moles/Vol] 125 mmol/L High 97-105 [facility] Comment on above: Order Comment: Speci men Type: BLOOD SPECIMEN Performed By: #### 2 4321-2, 2776-05, ####[facility]ATORYCLIA [id number] [address] CO2 [Moles/Vol] 29 mmol/L Normal 22-30 [facility] Comment on above: Order Comment: Speci men Type: BLOOD SPECIMEN Performed By: #### 2 4321-2, 2776-05, ####[facility]ATORYCLIA [id number] [address] STATES OF [facility] Creatinine [Mass/Vol] 0.81 mg/dL Normal 0.73-1.22 [facility] Comment on above: Order Comment: Speci men Type: BLOOD SPECIMEN Performed By: #### 2 4321-2, 2776-05, ####[facility]ATORYCLIA [id number] [address] [place] GFR/1.73 sq M.predicted MDRD (S/P/Bld) [Vol rate/Area] mL/min/{1.73_m2} Normal [facility] Comment on above: [...] GFR. Performed By: #### 2 4321-2, 2776-05, ####[facility]ATORYCLIA [id number] [place] [address] [place] Glucose [Mass/Vol] 124 mg/dL High 74-99 [facility] Comment on above: Order Comment: Speci men Type: BLOOD SPECIMEN Result Comment: The [employer] (ADA) provides guidance for cutoff [...] Standards of Medical Care in Diabetes 2016, [employer]. Diabetes Care. 2016.39(Suppl 1). Performed By: #### 2 432-2, 2776-05, ####[facility]PITALIA [id number] [place] [address] [place] Potassium [Moles/Vol] 3.8 mmol/L Normal 3.7-5.1 [facility] Comment on above: Order Comment: Speci men Type: BLOOD SPECIMEN Performed By: #### 2 4321-2, 2776-05, ####[facility]ATORYCLIA [id number] [place] [address] [place] Sodium [Moles/Vol] 163 mmol/L High 136-144 [facility] Comment on above: Order Comment: Speci men Type: BLOOD SPECIMEN Performed By: #### 2 4321-2, 2776-1, ####[facility]ATORYCLIA [id number] [address] STATES [facility] Urea nitrogen [Mass/Vol] 35 mg/dL High 9-24 [facility] Comment on above: Order Comment: Speci men Type: BLOOD SPECIMEN Performed By: #### 2 4321-2, 277-, ####[facility]ATORYCLIA [id number] [address] CBC panel Auto (Bld)on 06-15 Erythrocyte distribution width (RBC) [Ratio] 16.3 % High 11.5-15.0 [facility] Comment on above: Order Comment: Speci men Type: BLOOD SPECIMENOrdering Facility: [facility] Address: [address] [place] [address] Performed By: #### 5 8410-2 ####[facility]ATORYCLIA [id number] [address] Hematocrit (Bld) [Volume fraction] 30.0 % Low 39.0-51.0 [facility] Comment on above: Order Comment: Speci men Type: BLOOD SPECIMENOrdering Facility: [facility] Address: [address] [place] [address] Performed By: #### 5 8410-2 ####[facility]ATORYCLIA [id number] [address] STATES [facility] Hemoglobin (Bld) [Mass/Vol] 8.9 g/dL Low 13.0-17.0 [facility] Comment on above: Order Comment: Speci men Type: BLOOD SPECIMENOrdering Facility: [facility] Address: [address] [place] [address] Performed By: #### 5 8410-2 ####[facility]ATORYCLIA [id number] [address] [place] MCH (RBC) [Entitic mass] 28.7 pg Normal 26.0-34.0 [facility] Comment on above: Order Comment: Speci men Type: BLOOD SPECIMENOrdering Facility: [facility] Address: [address] [place] [address] Performed By: #### 5 8410-2 ####[facility]ATORYCLIA [id number] [address] MCHC (RBC) [Mass/Vol] 29.7 g/dL Low 30.5-36.0 [facility] Comment on above: Order Comment: Speci men Type: BLOOD SPECIMENOrdering Facility: [facility] Address: [address] [place] [address] Performed By: #### 5 8410-2 ####[facility]ATORYCLIA [id number] [address] [place] MCV (RBC) [Entitic vol] 96.8 fL Normal 80.0-100.0 [facility] Comment on above: Order Comment: Speci men Type: BLOOD SPECIMENOrdering Facility: [facility] Address: [address] [place] [address] Performed By: #### 5 8410-2 ####[facility]ATORYCLIA [id number] [address] Nucleated RBC (Bld) [#/Vol] 10*3/uL Normal <0.01 [facility] Comment on above: Order Comment: Speci men Type: BLOOD SPECIMENOrdering Facility: [facility] Address: [address] [place] [address] Performed By: #### 5 8410-2 ####[facility]ORATORYCLIA [id number] [address] Platelet mean volume (Bld) [Entitic vol] 12.3 fL Normal 9.0-12.7 [facility] Comment on above: Order Comment: Speci men Type: BLOOD SPECIMENOrdering Facility: [facility] Address: [address] [place] [address] Performed By: #### 5 8410-2 ####[facility]ATORYCLIA [id number] [address] [place] Platelets (Bld) [#/Vol] 226 10*3/uL Normal 150-400 [facility] Comment on above: Order Comment: Speci men Type: BLOOD SPECIMENOrdering Facility: [facility] Address: [address] [place] [address] Performed By: #### 5 8410-2 ####[facility]ATORYCLIA [id number] [address] OF [place] RBC (Bld) [#/Vol] 3.10 10*6/uL Low 4.20-6.00 [facility] Comment on above: Order Comment: Speci men Type: BLOOD SPECIMENOrdering Facility: [facility] Address: [address] [place] [address] Performed By: #### 5 8410-2 ####[facility]ATORYCLIA [id number] [address] WBC (Bld) [#/Vol] 10.77 10*3/uL Normal 3.70-11.00 [facility] Comment on above: Order Comment: Speci men Type: BLOOD SPECIMENOrdering Facility: [facility] Address: [address] [place] [address] Performed By: #### 5 8410-2 ####[facility]ATORYCLIA [id number] [address] Erythrocyte distribution width (RBC) [Ratio] 16.2 % High 11.5-15.0 [facility] Comment on above: Order Comment: Speci men Type: BLOOD SPECIMENOrdering Facility: [facility] Address: [address] [place] [address] Performed By: #### 5 8410-2 ####[facility]ATORYCLIA [id number] [address] Hematocrit (Bld) [Volume fraction] 34.8 % Low 39.0-51.0 [facility] Comment on above: Order Comment: Speci men Type: BLOOD SPECIMENOrdering Facility: [facility] Address: [address] [place] [address] Performed By: #### 5 8410-2 ####[facility]ATORYCLIA [id number] [address] OF [facility] Hemoglobin (Bld) [Mass/Vol] 10.0 g/dL Low 13.0-17.0 [facility] Comment on above: Order Comment: Speci men Type: BLOOD SPECIMENOrdering Facility: [facility] Address: [address] [place] [address] Performed By: #### 5 8410-2 ####[facility]ATORYCLIA [id number] [address] STATES OF [facility] MCH (RBC) [Entitic mass] 27.5 pg Normal 26.0-34.0 [facility] Comment on above: Order Comment: Speci men Type: BLOOD SPECIMENOrdering Facility: [facility] Address: [address] [place] [address] Performed By: #### 5 8410-2 ####[facility]ATORYCLIA [id number] [address] MCHC (RBC) [Mass/Vol] 28.7 g/dL Low 30.5-36.0 [facility] Comment on above: Order Comment: Speci men Type: BLOOD SPECIMENOrdering Facility: [facility] Address: [address] [place] [address] Performed By: #### 5 8410-2 ####[facility]ATORYCLIA [id number] [address] [place] MCV (RBC) [Entitic vol] 95.6 fL Normal 80.0-100.0 [facility] Comment on above: Order Comment: Speci men Type: BLOOD SPECIMENOrdering Facility: [facility] Address: [address] [place] [address] Performed By: #### 5 8410-2 ####[facility]ATORYCLIA [id number] [address] [place] Nucleated RBC (Bld) [#/Vol] 10*3/uL Normal <0.01 [facility] Comment on above: Order Comment: Speci men Type: BLOOD SPECIMENOrdering Facility: [facility] Address: [address] [place] [address] Performed By: #### 5 8410-2 ####[facility]ATORYCLIA [id number] [place] [address] [place] Platelet mean volume (Bld) [Entitic vol] 11.9 fL Normal 9.0-12.7 [facility] Comment on above: Order Comment: Speci men Type: BLOOD SPECIMENOrdering Facility: [facility] Address: [address] [place] [address] Performed By: #### 5 8410-2 ####[facility]ATORYCLIA [id number] [address] [place] Platelets (Bld) [#/Vol] 246 10*3/uL Normal 150-400 [facility] Comment on above: Order Comment: Speci men Type: BLOOD SPECIMENOrdering Facility: [facility] Address: [address] [place] [address] Performed By: #### 5 8410-2 ####[facility]ATORYCLIA [id number] [address] [place] RBC (Bld) [#/Vol] 3.64 10*6/uL Low 4.20-6.00 [facility] Comment on above: Order Comment: Speci men Type: BLOOD SPECIMENOrdering Facility: [facility] Address: [address] [place] [address] Performed By: #### 5 8410-2 ####[facility]ATORYCLIA [id number] [address] [place] WBC (Bld) [#/Vol] 11.45 10*3/uL High 3.70-11.00 [facility] Comment on above: Order Comment: Speci men Type: BLOOD SPECIMENOrdering Facility: [facility] Address: [address] [place] [address] Performed By: #### 5 8410-2 ####[facility]ATORYCLIA [id number] [address] Erythrocyte distribution width (RBC) [Ratio] 15.9 % High 11.5-15.0 [facility] Comment on above: Order Comment: Speci men Type: BLOOD SPECIMEN Performed By: #### 5 8410-2 ####[facility]ATORYCLIA [id number] [address] Hematocrit (Bld) [Volume fraction] 35.8 % Low 39.0-51.0 [facility] Comment on above: Order Comment: Speci men Type: BLOOD SPECIMEN Performed By: #### 5 8410-2 ####[facility]ATORYCLIA [id number] [address] Hemoglobin (Bld) [Mass/Vol] 10.4 g/dL Low 13.0-17.0 [facility] Comment on above: Order Comment: Speci men Type: BLOOD SPECIMEN Performed By: #### 5 8410-2 ####[facility]ATORYCLIA [id number] [address] MCH (RBC) [Entitic mass] 28.0 pg Normal 26.0-34.0 [facility] Comment on above: Order Comment: Speci men Type: BLOOD SPECIMEN Performed By: #### 5 8410-2 ####[facility]ATORYCLIA [id number] [address] MCHC (RBC) [Mass/Vol] 29.1 g/dL Low 30.5-36.0 [facility] Comment on above: Order Comment: Speci men Type: BLOOD SPECIMEN Performed By: #### 5 8410-2 ####[facility]ATORYCLIA [id number] [address] MCV (RBC) [Entitic vol] 96.2 fL Normal 80.0-100.0 [facility] Comment on above: Order Comment: Speci men Type: BLOOD SPECIMEN Performed By: #### 5 8410-2 ####[facility]ORYCLIA [id number] [address] Nucleated RBC (Bld) [#/Vol] 10*3/uL Normal <0.01 [facility] Comment on above: Order Comment: Speci men Type: BLOOD SPECIMEN Performed By: #### 5 8410-2 ####[facility]ORYCLIA [id number] [address] Platelet mean volume (Bld) [Entitic vol] 11.6 fL Normal 9.0-12.7 [facility] Comment on above: Order Comment: Speci men Type: BLOOD SPECIMEN Performed By: #### 5 8410-2 ####[facility]ATORYCLIA [id number] [address] Platelets (Bld) [#/Vol] 265 10*3/uL Normal 150-400 [facility] Comment on above: Order Comment: Speci men Type: BLOOD SPECIMEN Performed By: #### 5 8410-2 ####[facility]ORYCLIA [id number] [address] RBC (Bld) [#/Vol] 3.72 10*6/uL Low 4.20-6.00 [facility] Comment on above: Order Comment: Speci men Type: BLOOD SPECIMEN Performed By: #### 5 8410-2 ####[facility]ATORYCLIA [id number] [address] WBC (Bld) [#/Vol] 12.24 10*3/uL High 3.70-11.00 [facility] Comment on above: Order Comment: Speci men Type: BLOOD SPECIMEN Performed By: #### 5 8410-2 ####[facility]ATORYCLIA [id number] [address] CONSULTon 06-15-2021 CONSULT Normal [facility] CONSULT Normal [facility] CONSULT Normal [facility] CT BRAIN WO IVCONon 06-15-19 CT BRAIN WO IVCON Normal [facility] CT CHEST W IVCON PEon 2021 CT CHEST W IVCON PE Invalid Interpretation Code [facility] Chloride Unsp time (U) [Mole s/Vol]on 06-15-2021 Chloride (U) [Moles/Vol] 28 mmol/L Normal 16-250 [facility] Comment on above: Order Comment: Speci men Type: URINE SPECIMENOrdering Facility: [facility] Address: [address] [place] [address] Performed By: #### U TPR, 83732-8, 06439-8, 03502-5 ####[facility]ATORYCLIA [id number] [address] Comprehensive metabolic 2000 panelon 06-15-2021 Albumin [Mass/Vol] 2.8 g/dL Low 3.9-4.9 [facility] Comment on above: Order Comment: Speci men Type: BLOOD SPECIMENOrdering Facility: [facility] Address: [address] [place] [address] Performed By: #### 2 4323-8 ####[facility]ATORYCLIA [id number] [address] ALP [Catalytic activity/Vol] 74 U/L Normal 38-113 [facility] Comment on above: Order Comment: Speci men Type: BLOOD SPECIMENOrdering Facility: [facility] Address: [address] [place] [address] Performed By: #### 2 4323-8 ####[facility] LABORATORYCLIA [id number] [address] ALT With P-5'-P [Catalytic activity/Vol] 50 U/L Normal 10-54 [facility] Comment on above: Order Comment: Speci men Type: BLOOD SPECIMENOrdering Facility: [facility] Address: [address] [place] [address] Performed By: #### 2 4323-8 ####[facility]ORATORYCLIA [id number] [place] [address] [place] Anion gap [Moles/Vol] 12 mmol/L Normal 9-18 [facility] Comment on above: Order Comment: Speci men Type: BLOOD SPECIMENOrdering Facility: [facility] Address: [address] [place] [address] Performed By: #### 2 4323-8 ####[facility]ATORYCLIA [id number] [place] [address] [place] AST With P-5'-P [Catalytic activity/Vol] 36 U/L Normal 14-40 [facility] Comment on above: Order Comment: Speci men Type: BLOOD SPECIMENOrdering Facility: [facility] Address: [address] [place] [address] Performed By: #### 2 4323-8 ####[facility]ATORYCLIA [id number] [address] [place] Bilirubin [Mass/Vol] 0.5 mg/dL Normal 0.2-1.3 [facility] Comment on above: Order Comment: Speci men Type: BLOOD SPECIMENOrdering Facility: [facility] Address: [address] [place] [address] Performed By: #### 2 4323-8 ####[facility]ATORYCLIA [id number] [address] [place] Calcium [Mass/Vol] 8.8 mg/dL Normal 8.5-10.2 [facility] Comment on above: Order Comment: Speci men Type: BLOOD SPECIMENOrdering Facility: [facility] Address: [address] [place] [address] Performed By: #### 2 4323-8 ####[facility]ATORYCLIA [id number] [place] [address] [place] Chloride [Moles/Vol] 126 mmol/L High 97-105 [facility] Comment on above: Order Comment: Speci men Type: BLOOD SPECIMENOrdering Facility: [facility] Address: [address] [place] [address] Performed By: #### 2 4323-8 ####[facility]ATORYCLIA [id number] [address] STATES OF [facility] CO2 [Moles/Vol] 24 mmol/L Normal 22-30 [facility] Comment on above: Order Comment: Speci men Type: BLOOD SPECIMENOrdering Facility: [facility] Address: [address] [place] [address] Performed By: #### 2 4323-8 ####[facility]ATORYCLIA [id number] [address] [place] Creatinine [Mass/Vol] 0.84 mg/dL Normal 0.73-1.22 [facility] Comment on above: Order Comment: Speci men Type: BLOOD SPECIMENOrdering Facility: [facility] Address: [address] [place] [address] Performed By: #### 2 4323-8 ####[facility]ATORYCLIA [id number] [address] [place] GFR/1.73 sq M.predicted MDRD (S/P/Bld) [Vol rate/Area] mL/min/{1.73_m2} Normal [facility] Comment on above: Order Comment: Speci men Type: BLOOD SPECIMENOrdering Facility: [facility] Address: [address] [place] [address] Result Comment: >60e GFR (Estimated GFR) Units [...] actual GFR. Performed By: #### 2 4323-8 ####[facility]ATORYCLIA [id number] [place] [address] [place] Glucose [Mass/Vol] 142 mg/dL High 74-99 [facility] Comment on above: Order Comment: Shira feldman Type: BLOOD SPECIMENOrdering Facility: [facility] Address: [address] [place] [address] Result Comment: The [employer] (ADA) provides guidance for cutoff [...] Standards of Medical Care in Diabetes 2016, [employer]. Diabetes Care. 2016.39(Suppl 1). Performed By: #### 2 4323-8 ####[facility]ATORYCLIA [id number] [place] [address] [place] Potassium [Moles/Vol] 3.8 mmol/L Normal 3.7-5.1 [facility] Comment on above: Order Comment: Shira feldman Type: BLOOD SPECIMENOrdering Facility: [facility] Address: [address] [place] [address] Performed By: #### 2 4323-8 ####[facility]ORYCLIA [id number] [place] [address] [place] Protein [Mass/Vol] 6.1 g/dL Low 6.3-8.0 [facility] Comment on above: Order Comment: Shira feldman Type: BLOOD SPECIMENOrdering Facility: [facility] Address: [address] [place] [address] Performed By: #### 2 4323-8 ####[facility]ORYCLIA [id number] [place] [address] [place] Sodium [Moles/Vol] 162 mmol/L High 136-144 [facility] Comment on above: Order Comment: Speci men Type: BLOOD SPECIMENOrdering Facility: [facility] Address: [address] [place] [address] Performed By: #### 2 4323-8 ####[facility]ATORYCLIA [id number] [place] [address] [place] Urea nitrogen [Mass/Vol] 33 mg/dL High 9-24 [facility] Comment on above: Order Comment: Speci men Type: BLOOD SPECIMENOrdering Facility: [facility] Address: [address] [place] [address] Performed By: #### 2 4323-8 ####[facility]ORYCLIA [id number] [place] [address] [place] Creatinine Unsp time (U) [Ma ss/Vol]on 06-15-2021 Creatinine (U) [Mass/Vol] 87.0 mg/dL Normal 46.8-314.5 [facility] Comment on above: Order Comment: Speci men Type: URINE SPECIMENOrdering Facility: [facility] Address: [address] [place] [address] Performed By: #### U TPR, 25383-0, 43235-0, 38004-9 ####[facility]ATORYCLIA [id number] [address] [place] HIGH SENSITIVITY TROPONIN To n 06-15-2021 HIGH SENSITIVITY TAMIKO 23 ng/L High <12 [facility] Comment on above: Order Comment: Speci men Type: BLOOD SPECIMENOrdering Facility: [facility] Address: [address] [place] [address] Result Comment: When assessing risk for acute [...] day MACE. Performed By: #### P JULIANNE, 00157-3, HSTNT ####[facility]ITALIA [id number] [place] [address] [place] Lactate (Bld) [Moles/Vol]on 06-15-2021 Lactate [Moles/Vol] 0.8 mmol/L Normal 0.5-2.2 [facility] Comment on above: Order Comment: Speci men Type: BLOOD SPECIMENOrdering Facility: [facility] Address: [address] [place] [address] Performed By: #### 3 2693-4 ####[facility]ENTERCLIA [id number] [place] [address] [place] Magnesium SerPl-ncon 06-15 Magnesium [Mass/Vol] 3.0 mg/dL High 1.7-2.3 [facility] Comment on above: Order Comment: Speci men Type: BLOOD SPECIMEN Performed By: #### 2 4321-2, 2777-1, 05694-7 ####[facility]ITALIA [id number] [address] [place] NT-proBNP [facility] 06-15 Natriuretic peptide.B prohormone N-Terminal [Mass/Vol] 265 pg/mL High <125 [facility] Comment on above: Order Comment: Speci men Type: BLOOD SPECIMENOrdering Facility: [facility] Address: [address] [place] [address] Performed By: #### P JULIANNE, 12077-6, HSTNT ####[facility]ITALIA [id number] [place] [address] [place] Osmolality Uron 06-15-2021 Osmolality (U) [Osmolality] 606 mosm/kg Normal 50-1,200 [facility] Comment on above: Order Comment: Speci men Type: URINE SPECIMENOrdering Facility: [facility] Address: [address] [place] [address] Performed By: #### 2 695-5 ####[facility]ITALIA [id number] [address] PROCALCITONIN (LAB)on 2021 Procalcitonin [Mass/Vol] 0.21 ng/mL High <0.09 [facility] Comment on above: Order Comment: Speci men Type: BLOOD SPECIMENOrdering Facility: [facility] Address: [address] [place] [address] Result Comment: For a guided interpretation of test results, please visit the Change in Procalcitonin Calculator, [email or web address]. Performed By: #### P JULIANNE, 2951-2 ####[facility]ATORYCLIA [id number] [address] Procalcitonin [Mass/Vol] 0.17 ng/mL High <0.09 [facility] Comment on above: Order Comment: Speci men Type: BLOOD SPECIMENOrdering Facility: [facility] Address: [address] [place] [address] Result Comment: For a guided interpretation of test results, please visit the Change in Procalcitonin Calculator, [email or web address]. Performed By: #### P JULIANNE, 88769-6, HSTNT ####[facility]ATORYCLIA [id number] [address] PROTEIN RANDOM URon 06-15-19 22 Protein (U) [Mass/Vol] 175 mg/dL High 0-20 [facility] Comment on above: Order Comment: Speci men Type: URINE SPECIMENOrdering Facility: [facility] Address: [address] [place] [address] Performed By: #### U TPR, 54835-8, 91338-9, 00105-1 ####[facility]ATORYCLIA [id number] [address] PT panel Coag (PPP)on 2021 INR Coag (PPP) [Relative time] 1.1 {INR} Normal <1.4 [facility] Comment on above: Order Comment: Speci men Type: BLOOD SPECIMENOrdering Facility: [facility] Address: [address] [place] [address] Result Comment: Yris min K Antagonist (VKA) Therapeutic Range: INR 2 to 3 (Target INR of 2.5)Note: For patients treated with VKA drugs, such as warfarin, the [employer] 2012 Guideline recommends [...] 70: 252-289 Performed By: #### 3 4528-0, 66572-9 ####[facility]ATORYCLIA [id number] [place] [address] [place] PT Coag (PPP) [Time] 11.4 s Normal <13.1 [facility] Comment on above: Order Comment: Speccara feldman Type: BLOOD SPECIMENOrdering Facility: [facility] Address: [address] [place], [place] [id number] Performed By: #### 3 4528-0, 76899-3 ####[facility]ORATORYCLIA [id number] [place] [id number] [place] Phosphate SerPl-mCncon 06-15 Phosphate [Mass/Vol] 2.6 mg/dL Low 2.7-4.8 [facility] Comment on above: Order Comment: Shira feldman Type: BLOOD SPECIMEN Performed By: #### 2 4321-2, 2777-1, 09107-1 ####[facility]ATORYCLIA [id number] [place] [address] [place] Sodium ?Tm Ur-sCncon 022 Sodium Unsp time (U) [Moles/Vol] 34 mmol/L Normal 14-216 [facility] Comment on above: Order Comment: Speci men Type: URINE SPECIMENOrdering Facility: [facility] Address: [address] [place] [address] Performed By: #### U TPR, 03523-3, 55870-1, 74135-3 ####[facility]ORYCLIA [id number] [address] Sodium SerPl-sCncon 06-15-19 22 Sodium [Moles/Vol] 159 mmol/L High 136-144 [facility] Comment on above: Order Comment: Speci men Type: BLOOD SPECIMENOrdering Facility: [facility] Address: [address] [place] [address] Performed By: #### P JULIANNE, 2951-2 ####[facility]ATORYCLIA [id number] [address] THERAPY NTon 06-15-2021 THERAPY NT Normal [facility] Urinalysis complete panel (U )on 06-15-2021 Bacteria LM.HPF (Urine sed) [#/Area] None Seen Normal None Seen [facility] Comment on above: Order Comment: Speci men Type: URINE SPECIMENOrdering Facility: [facility] Address: [address] [place] [address] Performed By: #### 2 4356-8 ####[facility]ATORYCLIA [id number] [address] Bilirubin Ql (U) Negative Normal Negative [facility] Comment on above: Order Comment: Speci men Type: URINE SPECIMENOrdering Facility: [facility] Address: [address] [place] [address] Performed By: #### 2 4356-8 ####[facility]ATORYCLIA [id number] [address] [place] Clarity (Unsp spec) Cloudy Abnormal Clear [facility] Comment on above: Order Comment: Speci men Type: URINE SPECIMENOrdering Facility: [facility] Address: [address] [place] [address] Performed By: #### 2 4356-8 ####[facility]ORATORYCLIA [id number] [address] Color (U) Yellow Normal Yellow [facility] Comment on above: Order Comment: Speci men Type: URINE SPECIMENOrdering Facility: [facility] Address: [address] [place] [address] Performed By: #### 2 4356-8 ####[facility]ATORYCLIA [id number] [address] Epithelial cells LM.HPF (Urine sed) [#/Area] 7.1 /[HPF] Normal [facility] Comment on above: Order Comment: Speci men Type: URINE SPECIMENOrdering Facility: [facility] Address: [address] [place] [address] Performed By: #### 2 4356-8 ####[facility]ATORYCLIA [id number] [address] Glucose Test strip (U) [Mass/Vol] Negative Normal Negative [facility] Comment on above: Order Comment: Speci men Type: URINE SPECIMENOrdering Facility: [facility] Address: [address] [place] [address] Performed By: #### 2 4356-8 ####[facility]ATORYCLIA [id number] [address] Granular casts (Urine sed) [#/Area] /[LPF] Abnormal 0 /LPF [facility] Comment on above: Order Comment: Speci men Type: URINE SPECIMENOrdering Facility: [facility] Address: [address] [place] [address] Performed By: #### 2 4356-8 ####[facility] LABORATORYCLIA [id number] [address] Hemoglobin Ql (U) Moderate Abnormal Negative [facility] Comment on above: Order Comment: Speci men Type: URINE SPECIMENOrdering Facility: [facility] Address: [address] [place] [address] Performed By: #### 2 4356-8 ####[facility]ATORYCLIA [id number] [place] [address] [place] Hyaline casts (Urine sed) [#/Area] /[LPF] Abnormal 0 /LPF [facility] Comment on above: Order Comment: Speci men Type: URINE SPECIMENOrdering Facility: [facility] Address: [address] [place] [address] Performed By: #### 2 4356-8 ####[facility]ATORYCLIA [id number] [address] Ketones Ql (U) Negative Normal Negative [facility] Comment on above: Order Comment: Speci men Type: URINE SPECIMENOrdering Facility: [facility] Address: [address] [place] [address] Performed By: #### 2 4356-8 ####[facility]ATORYCLIA [id number] [address] Leukocyte esterase Test strip Ql (U) Negative Normal Negative [facility] Comment on above: Order Comment: Speci men Type: URINE SPECIMENOrdering Facility: [facility] Address: [address] [place] [address] Performed By: #### 2 4356-8 ####[facility]ATORYCLIA [id number] [place] [address] [place] Nitrite Ql (U) Negative Normal Negative [facility] Comment on above: Order Comment: Speci men Type: URINE SPECIMENOrdering Facility: [facility] Address: [address] [place] [address] Performed By: #### 2 4356-8 ####[facility]ATORYCLIA [id number] [place] [address] [place] pH (U) 6.0 [pH] Normal 5.0-8.0 [facility] Comment on above: Order Comment: Speci men Type: URINE SPECIMENOrdering Facility: [facility] Address: [address] [place] [address] Performed By: #### 2 4356-8 ####[facility]ATORYCLIA [id number] [address] Protein (U) [Mass/Vol] 100 mg/dL Abnormal Negative [facility] Comment on above: Order Comment: Speci men Type: URINE SPECIMENOrdering Facility: [facility] Address: [address] [place] [address] Performed By: #### 2 4356-8 ####[facility]ATORYCLIA [id number] [address] RBC LM.HPF (Urine sed) [#/Area] 0-3 /HPF Normal 0-3 /HPF [facility] Comment on above: Order Comment: Speci men Type: URINE SPECIMENOrdering Facility: [facility] Address: [address] [place] [address] Performed By: #### 2 4356-8 ####[facility]ENTERCLIA [id number] [address] Specific gravity (U) [Rel density] 1.024 Normal 1.005-1.030 [facility] Comment on above: Order Comment: Speci men Type: URINE SPECIMENOrdering Facility: [facility] Address: [address] [place] [address] Performed By: #### 2 4356-8 ####[facility]ATORYCLIA [id number] [address] Urobilinogen Ql (U) 0.2 EU/dL Normal 0.2-1.0 EU/dL [facility] Comment on above: Order Comment: Speci men Type: URINE SPECIMENOrdering Facility: [facility] Address: [address] [place] [address] Performed By: #### 2 4356-8 ####[facility]ATORYCLIA [id number] [address] STATES [facility] WBC LM.HPF (Urine sed) [#/Area] 0-5 /HPF Normal 0-5 /HPF [facility] Comment on above: Order Comment: Speci men Type: URINE SPECIMENOrdering Facility: [facility] Address: [address] [place] [address] Performed By: #### 2 4356-8 ####[facility]ATORYCLIA [id number] [address] OF [facility] XR CHEST 1V FRONTALon 2021 XR CHEST 1V FRONTAL Normal [facility] XR CHEST 1V FRONTAL PORTon 0 06-15-2021 XR CHEST 1V FRONTAL PORT Normal [facility] XR CHEST 1V FRONTAL PORT Normal [facility] aPTT PPPon 06-15-2021 aPTT Coag (PPP) [Time] 30.9 s Normal 23.0-32.4 [facility] Comment on above: Order Comment: Speci men Type: BLOOD SPECIMENOrdering Facility: [facility] Address: [address] [place] [address] Performed By: #### 3 4528-0, 64036-3 ####[facility]ATORYCLIA [id number] [address] Basic metabolic 2000 panelon 06-14-2021 Anion gap [Moles/Vol] 8 mmol/L Low 9-18 [facility] Comment on above: Order Comment: Speci men Type: BLOOD SPECIMEN Performed By: #### 2 4321-2, 2777-, ####[facility]ORYCLIA [id number] [address] STATES OF [facility] Calcium [Mass/Vol] 8.9 mg/dL Normal 8.5-10.2 [facility] Comment on above: Order Comment: Speci men Type: BLOOD SPECIMEN Performed By: #### 2 4321-2, 2777-1, ####[facility]ATORYCLIA [id number] [place] [address] [place] Chloride [Moles/Vol] 121 mmol/L High 97-105 [facility] Comment on above: Order Comment: Speci men Type: BLOOD SPECIMEN Performed By: #### 2 4321-2, 2776-05, ####[facility]ATORYCLIA [id number] [place], [place] [address] [place] [address] [place] CO2 [Moles/Vol] 30 mmol/L Normal 22-30 [facility] Comment on above: Order Comment: Speci men Type: BLOOD SPECIMEN Performed By: #### 2 4321-2, 2776-05, ####[facility]ATORYCLIA [id number] [address] STATES [facility] Creatinine [Mass/Vol] 0.78 mg/dL Normal 0.73-1.22 [facility] Comment on above: Order Comment: Speci men Type: BLOOD SPECIMEN Performed By: #### 2 4321-2, 2776-05, ####[facility]ATORYCLIA [id number] [address] [place] GFR/1.73 sq M.predicted MDRD (S/P/Bld) [Vol rate/Area] mL/min/{1.73_m2} Normal [facility] Comment on above: [...] GFR. Performed By: #### 2 4321-2, 2776-05, ####[facility]ATORYCLIA [id number] [address] [place] Glucose [Mass/Vol] 132 mg/dL High 74-99 [facility] Comment on above: Order Comment: Speci men Type: BLOOD SPECIMEN Result Comment: The [employer] (ADA) provides guidance for cutoff [...] Standards of Medical Care in Diabetes 2016, [employer]. Diabetes Care. 2016.39(Suppl 1). Performed By: #### 2 4321-2, 2776-05, ####[facility]ATORYCLIA [id number] [address] OF [facility] Potassium [Moles/Vol] 3.7 mmol/L Normal 3.7-5.1 [facility] Comment on above: Order Comment: Speci men Type: BLOOD SPECIMEN Performed By: #### 2 1-2, 2776-05, ####[facility]ATORYCLIA [id number] [address] STATES OF [facility] Sodium [Moles/Vol] 159 mmol/L High 136-144 [facility] Comment on above: Order Comment: Speci men Type: BLOOD SPECIMEN Performed By: #### 2 4321-2, 2776-05, ####[facility]ATORYCLIA [id number] [address] STATES OF [facility] Urea nitrogen [Mass/Vol] 35 mg/dL High 9-24 [facility] Comment on above: Order Comment: Speci men Type: BLOOD SPECIMEN Performed By: #### 2 4321-2, 2776-05, ####[facility]ATORYCLIA [id number] [address] OF [facility] CASE MANAGEMon 06-14-2021 CASE MANAGEM Normal [facility] CBC panel Auto (Bld)on 06-14 Erythrocyte distribution width (RBC) [Ratio] 16.2 % High 11.5-15.0 [facility] Comment on above: Order Comment: Speci men Type: BLOOD SPECIMEN Performed By: #### 5 8410-2 ####[facility]ATORYCLIA [id number] [address] Hematocrit (Bld) [Volume fraction] 35.2 % Low 39.0-51.0 [facility] Comment on above: Order Comment: Speci men Type: BLOOD SPECIMEN Performed By: #### 5 8410-2 ####[facility]ATORYCLIA [id number] [address] Hemoglobin (Bld) [Mass/Vol] 10.1 g/dL Low 13.0-17.0 [facility] Comment on above: Order Comment: Speci men Type: BLOOD SPECIMEN Performed By: #### 5 8410-2 ####[facility]ORYCLIA [id number] [address] MCH (RBC) [Entitic mass] 27.2 pg Normal 26.0-34.0 [facility] Comment on above: Order Comment: Speci men Type: BLOOD SPECIMEN Performed By: #### 5 8410-2 ####[facility]ATORYCLIA [id number] [address] MCHC (RBC) [Mass/Vol] 28.7 g/dL Low 30.5-36.0 [facility] Comment on above: Order Comment: Speci men Type: BLOOD SPECIMEN Performed By: #### 5 8410-2 ####[facility]ATORYCLIA [id number] [address] MCV (RBC) [Entitic vol] 94.6 fL Normal 80.0-100.0 [facility] Comment on above: Order Comment: Speci men Type: BLOOD SPECIMEN Performed By: #### 5 8410-2 ####[facility] LABORATORYCLIA [id number] [address] Nucleated RBC (Bld) [#/Vol] 10*3/uL Normal <0.01 [facility] Comment on above: Order Comment: Speci men Type: BLOOD SPECIMEN Performed By: #### 5 8410-2 ####[facility] LABORATORYCLIA [id number] [address] Platelet mean volume (Bld) [Entitic vol] 11.0 fL Normal 9.0-12.7 [facility] Comment on above: Order Comment: Speci men Type: BLOOD SPECIMEN Performed By: #### 5 8410-2 ####[facility] LABORATORYCLIA [id number] [address] Platelets (Bld) [#/Vol] 287 10*3/uL Normal 150-400 [facility] Comment on above: Order Comment: Speci men Type: BLOOD SPECIMEN Performed By: #### 5 8410-2 ####[facility]ORYCLIA [id number] [address] RBC (Bld) [#/Vol] 3.72 10*6/uL Low 4.20-6.00 [facility] Comment on above: Order Comment: Speci men Type: BLOOD SPECIMEN Performed By: #### 5 8410-2 ####[facility] LABORATORYCLIA [id number] [address] WBC (Bld) [#/Vol] 12.23 10*3/uL High 3.70-11.00 [facility] Comment on above: Order Comment: Speci men Type: BLOOD SPECIMEN Performed By: #### 5 8410-2 ####[facility] LABORATORYCLIA [id number] [address] Comprehensive metabolic 2000 panelon 06-14-2021 Albumin [Mass/Vol] 3.1 g/dL Low 3.9-4.9 [facility] Comment on above: Order Comment: Speci men Type: BLOOD SPECIMEN Performed By: #### 2 4323-8, HSTNT, 2776-05, ####[facility] [id number] [place], [place] [address] [place] [address] ALP [Catalytic activity/Vol] 72 U/L Normal 38-113 [facility] Comment on above: Order Comment: Speci men Type: BLOOD SPECIMEN Performed By: #### 2 4323-8, HSTNT, 2776-05, ####[facility]ORY[facility]IA [id number] [place], [place] [address] [place] [address] ALT With P-5'-P [Catalytic activity/Vol] 57 U/L High 10-54 [facility] Comment on above: Order Comment: Speci men Type: BLOOD SPECIMEN Performed By: #### 2 4323-8, HSTNT, 2776-05, ####[facility]ORYCLIA [id number] [place], [place] [address] [place] [address] Anion gap [Moles/Vol] 9 mmol/L Normal 9-18 [facility] Comment on above: Order Comment: Speci men Type: BLOOD SPECIMEN Performed By: #### 2 4323-8, HSTNT, 2776-05, ####[facility] [id number] [place], [place] [address] [place] [address] AST With P-5'-P [Catalytic activity/Vol] 33 U/L Normal 14-40 [facility] Comment on above: Order Comment: Speci men Type: BLOOD SPECIMEN Performed By: #### 2 4323-8, HSTNT, 2776-05, ####[facility] [id number] [place], [place] [address] [place] [address] Bilirubin [Mass/Vol] 0.5 mg/dL Normal 0.2-1.3 [facility] Comment on above: Order Comment: Speci men Type: BLOOD SPECIMEN Performed By: #### 2 4323-8, HSTNT, 2776-05, ####[facility]ORYCLIA [id number] [place] [address] [place] Calcium [Mass/Vol] 8.8 mg/dL Normal 8.5-10.2 [facility] Comment on above: Order Comment: Speci men Type: BLOOD SPECIMEN Performed By: #### 2 4323-8, HSTNT, 2776-05, ####[facility]ATORYCLIA [id number] [address] [place] Chloride [Moles/Vol] 124 mmol/L High 97-105 [facility] Comment on above: Order Comment: Speci men Type: BLOOD SPECIMEN Performed By: #### 2 4323-8, HSTNT, 2776-05, ####[facility]ATORYCLIA [id number] [address] [place] CO2 [Moles/Vol] 29 mmol/L Normal 22-30 [facility] Comment on above: Order Comment: Speci men Type: BLOOD SPECIMEN Performed By: #### 2 4323-8, HSTNT, 2776-05, ####[facility]ORYCLIA [id number] [address] [place] Creatinine [Mass/Vol] 0.73 mg/dL Normal 0.73-1.22 [facility] Comment on above: Order Comment: Speci men Type: BLOOD SPECIMEN Performed By: #### 2 4323-8, HSTNT, 2776-05, ####[facility]ORYCLIA [id number] [place] [address] [place] GFR/1.73 sq M.predicted MDRD (S/P/Bld) [Vol rate/Area] mL/min/{1.73_m2} Normal [facility] Comment on above: [...] GFR. Performed By: #### 2 4323-8, HSTNT, ####[facility]ATORYCLIA [id number] [place] [address] [place] Glucose [Mass/Vol] 137 mg/dL High 74-99 [facility] Comment on above: Order Comment: Speci men Type: BLOOD SPECIMEN Result Comment: The [employer] (ADA) provides guidance for cutoff [...] Standards of Medical Care in Diabetes 2016, [employer]. Diabetes Care. 2016.39(Suppl 1). Performed By: #### 2 4323-8, HSTNT, ####[facility]ATORYCLIA [id number] [place] [id number] [place] Potassium [Moles/Vol] 3.6 mmol/L Low 3.7-5.1 [facility] Comment on above: Order Comment: Speci men Type: BLOOD SPECIMEN Performed By: #### 2 4323-8, HSTNT, ####[facility]ORYCLIA [id number] [place] [address] [place] Protein [Mass/Vol] 5.9 g/dL Low 6.3-8.0 [facility] Comment on above: Order Comment: Speci men Type: BLOOD SPECIMEN Performed By: #### 2 4323-8, HSTNT, 2776-05, ####[facility]ORATORYCLIA [id number] [place], [place] [address] [place] [address] Sodium [Moles/Vol] 162 mmol/L High 136-144 [facility] Comment on above: Order Comment: Speci men Type: BLOOD SPECIMEN Performed By: #### 2 4323-8, HSTNT, 2776-05, ####[facility]ORATORYCLIA [id number] [address] Urea nitrogen [Mass/Vol] 33 mg/dL High 9-24 [facility] Comment on above: Order Comment: Speci men Type: BLOOD SPECIMEN Performed By: #### 2 4323-8, HSTNT, 2776-05, ####[facility]ORYCLIA [id number] [address] HIGH SENSITIVITY TROPONIN To n 06-14-2021 HIGH SENSITIVITY TAMIKO 22 ng/L High <12 [facility] Comment on above: Order Comment: [...] day MACE. Performed By: #### H STNT ####[facility]ATORYCLIA [id number] [address] HIGH SENSITIVITY TAMIKO 22 ng/L High <12 [facility] Comment on above: Order Comment: [...] Performed By: #### 2 4323-8, HSTNT, 2776-05, ####[facility]CLIA [id number] [address] Magnesium SerPl-mCncon 06-14 Magnesium [Mass/Vol] 2.9 mg/dL High 1.7-2.3 [facility] Comment on above: Order Comment: Speci men Type: BLOOD SPECIMEN Performed By: #### 2 4323-8, HSTNT, 2776-05, ####[facility]ORYCLIA [id number] [address] Magnesium [Mass/Vol] 3.0 mg/dL High 1.7-2.3 [facility] Comment on above: Order Comment: Speci men Type: BLOOD SPECIMEN Performed By: #### 2 4321-2, 2776-05, ####[facility]ORYCLIA [id number] [address] NURSING PROGon 06-14-2021 NURSING PROG Normal [facility] NUTRITIONon 06-14-2021 NUTRITION Normal [facility] Phosphate SerPl-mCncon 06-14 Phosphate [Mass/Vol] 2.4 mg/dL Low 2.7-4.8 [facility] Comment on above: Order Comment: Speci men Type: BLOOD SPECIMEN Performed By: #### 2 4323-8, HSTNT, 2776-05, ####[facility]ORYCLIA [id number] [address] Phosphate [Mass/Vol] 3.2 mg/dL Normal 2.7-4.8 [facility] Comment on above: Order Comment: Speci men Type: BLOOD SPECIMEN Performed By: #### 2 4321-2, 2776-05, ####[facility]ORYCLIA [id number] [place] [address] [place] THERAPY NTon 06-14-2021 THERAPY NT Normal [facility] THERAPY NT Normal [facility] THERAPY NT Normal [facility] US DVT LOWER BILon US DVT LOWER RAINER Normal [facility] ALLIED HEALTHon 06-13-2021 ALLIED HEALTH Normal [facility] Basic metabolic 2000 panelon 06-13-2021 Anion gap [Moles/Vol] 7 mmol/L Low 9-18 [facility] Comment on above: Order Comment: Speci men Type: BLOOD SPECIMEN Performed By: #### 2 4321-2, , 2776-05 ####[facility]ORYCLIA [id number] [place] [address] [place] Calcium [Mass/Vol] 8.8 mg/dL Normal 8.5-10.2 [facility] Comment on above: Order Comment: Speci men Type: BLOOD SPECIMEN Performed By: #### 2 4321-2, , 2776-05 ####[facility]ORYCLIA [id number] [place] [address] [place] Chloride [Moles/Vol] 120 mmol/L High 97-105 [facility] Comment on above: Order Comment: Speci men Type: BLOOD SPECIMEN Performed By: #### 2 4321-2, , 2776-05 ####[facility]ORYCLIA [id number] [place] [address] [place] CO2 [Moles/Vol] 28 mmol/L Normal 22-30 [facility] Comment on above: Order Comment: Speci men Type: BLOOD SPECIMEN Performed By: #### 2 4321-2, , 2776-05 ####[facility]ORYCLIA [id number] [place] [address] [place] Creatinine [Mass/Vol] 0.78 mg/dL Normal 0.73-1.22 [facility] Comment on above: Order Comment: Speci men Type: BLOOD SPECIMEN Performed By: #### 2 4321-2, , 2776-05 ####[facility] [id number] [address] [place] GFR/1.73 sq M.predicted MDRD (S/P/Bld) [Vol rate/Area] mL/min/{1.73_m2} Normal [facility] Comment on above: [...] #### 2 4321-2, , 2776-05 ####[facility] [id number] [place] [id number] [place] Glucose [Mass/Vol] 126 mg/dL High 74-99 [facility] Comment on above: Order Comment: Speci men Type: BLOOD SPECIMEN Result Comment: The [employer] Diabetes Association (ADA) provides guidance for cutoff [...] Standards of Medical Care in Diabetes 2016, [employer]. Diabetes Care. 2016.39(Suppl 1). Performed By: #### 2 4321-2, 72894-3, 2776- ####[facility]ATORYCLIA [id number] [place], [place] [address] [place] [address] [place] [facility] Potassium [Moles/Vol] 3.6 mmol/L Low 3.7-5.1 [facility] Comment on above: Order Comment: Speci men Type: BLOOD SPECIMEN Performed By: #### 2 4321-2, , 2776-05 ####[facility]ORYCLIA [id number] [place], [place] [address] [place] [address] [place] Sodium [Moles/Vol] 155 mmol/L High 136-144 [facility] Comment on above: Order Comment: Speci men Type: BLOOD SPECIMEN Performed By: #### 2 4321-2, , 2776-05 ####[facility]ORYCLIA [id number] [address] [place] Urea nitrogen [Mass/Vol] 36 mg/dL High 9-24 [facility] Comment on above: Order Comment: Speci men Type: BLOOD SPECIMEN Performed By: #### 2 4321-2, , 2776-05 ####[facility]ORYCLIA [id number] [place], [place] [address] [place] [address] [place] Anion gap [Moles/Vol] 6 mmol/L Low 9-18 [facility] Comment on above: Order Comment: Speci men Type: BLOOD SPECIMEN Performed By: #### 2 4321-2, 2776-05, ####[facility]ORYCLIA [id number] [place] [address] [place] Calcium [Mass/Vol] 6.5 mg/dL Low 8.5-10.2 [facility] Comment on above: Order Comment: Speci men Type: BLOOD SPECIMEN Performed By: #### 2 4321-2, 2776-05, ####[facility]ORYCLIA [id number] [place] [address] [place] Chloride [Moles/Vol] 124 mmol/L High 97-105 [facility] Comment on above: Order Comment: Speci men Type: BLOOD SPECIMEN Performed By: #### 2 4321-2, 2776-05, ####[facility]ORYCLIA [id number] [place], [place] [address] [place] [address] [place] [facility] CO2 [Moles/Vol] 24 mmol/L Normal 22-30 [facility] Comment on above: Order Comment: Speci men Type: BLOOD SPECIMEN Performed By: #### 2 4321-2, 2776-05, ####[facility]ORYCLIA [id number] [address] [place] Creatinine [Mass/Vol] 0.61 mg/dL Low 0.73-1.22 [facility] Comment on above: Order Comment: Speci men Type: BLOOD SPECIMEN Performed By: #### 2 4321-2, 2776-05, ####[facility]ORYCLIA [id number] [address] [place] GFR/1.73 sq M.predicted MDRD (S/P/Bld) [Vol rate/Area] mL/min/{1.73_m2} Normal [facility] Comment on above: [...] GFR. Performed By: #### 2 4321-2, 2776-05, ####[facility]ORYCLIA [id number] [address] [place] Glucose [Mass/Vol] 100 mg/dL High 74-99 [facility] Comment on above: Order Comment: Speci men Type: BLOOD SPECIMEN Result Comment: The [employer] Diabetes Association (ADA) provides guidance for cutoff [...] Standards of Medical Care in Diabetes 2016, [employer]. Diabetes Care. 2016.39(Suppl 1). Performed By: #### 2 4321-2, 2776-, ####[facility]ORYCLIA [id number] [address] STATES OF [facility] Potassium [Moles/Vol] 2.7 mmol/L Low 3.7-5.1 [facility] Comment on above: Order Comment: Speci men Type: BLOOD SPECIMEN Performed By: #### 2 4321-2, 2776-05, ####[facility]ORYCLIA [id number] [address] STATES [facility] Sodium [Moles/Vol] 154 mmol/L High 136-144 [facility] Comment on above: Order Comment: Speci men Type: BLOOD SPECIMEN Performed By: #### 2 4321-2, 2776-05, ####[facility]ORYCLIA [id number] [address] [place] Urea nitrogen [Mass/Vol] 29 mg/dL High 9-24 [facility] Comment on above: Order Comment: Speci men Type: BLOOD SPECIMEN Performed By: #### 2 4321-2, 2776-05, ####[facility]ORYCLIA [id number] [address] [place] CASE MANAGEMon 06-13-2021 CASE MANAGEM Normal [facility] CBC panel Auto (Bld)on 06-13 Erythrocyte distribution width (RBC) [Ratio] 15.9 % High 11.5-15.0 [facility] Comment on above: Order Comment: Speci men Type: BLOOD SPECIMEN Performed By: #### 5 8410-2 ####[facility]ORYCLIA [id number] [address] Hematocrit (Bld) [Volume fraction] 34.3 % Low 39.0-51.0 [facility] Comment on above: Order Comment: Speci men Type: BLOOD SPECIMEN Performed By: #### 5 8410-2 ####[facility]ORYCLIA [id number] [address] Hemoglobin (Bld) [Mass/Vol] 9.9 g/dL Low 13.0-17.0 [facility] Comment on above: Order Comment: Speci men Type: BLOOD SPECIMEN Performed By: #### 5 8410-2 ####[facility]ORYCLIA [id number] [address] MCH (RBC) [Entitic mass] 27.3 pg Normal 26.0-34.0 [facility] Comment on above: Order Comment: Speci men Type: BLOOD SPECIMEN Performed By: #### 5 8410-2 ####[facility]ORYCLIA [id number] [address] MCHC (RBC) [Mass/Vol] 28.9 g/dL Low 30.5-36.0 [facility] Comment on above: Order Comment: Speci men Type: BLOOD SPECIMEN Performed By: #### 5 8410-2 ####[facility]ORATORYCLIA [id number] [address] MCV (RBC) [Entitic vol] 94.5 fL Normal 80.0-100.0 [facility] Comment on above: Order Comment: Speci men Type: BLOOD SPECIMEN Performed By: #### 5 8410-2 ####[facility]ORYCLIA [id number] [address] Nucleated RBC (Bld) [#/Vol] 10*3/uL Normal <0.01 [facility] Comment on above: Order Comment: Speci men Type: BLOOD SPECIMEN Performed By: #### 5 8410-2 ####[facility]ORYCLIA [id number] [address] Platelet mean volume (Bld) [Entitic vol] 11.3 fL Normal 9.0-12.7 [facility] Comment on above: Order Comment: Speci men Type: BLOOD SPECIMEN Performed By: #### 5 8410-2 ####[facility]ORYCLIA [id number] [address] Platelets (Bld) [#/Vol] 269 10*3/uL Normal 150-400 [facility] Comment on above: Order Comment: Speci men Type: BLOOD SPECIMEN Performed By: #### 5 8410-2 ####[facility]ORYCLIA [id number] [address] RBC (Bld) [#/Vol] 3.63 10*6/uL Low 4.20-6.00 [facility] Comment on above: Order Comment: Speci men Type: BLOOD SPECIMEN Performed By: #### 5 8410-2 ####[facility]ORYCLIA [id number] [address] WBC (Bld) [#/Vol] 12.77 10*3/uL High 3.70-11.00 [facility] Comment on above: Order Comment: Speci men Type: BLOOD SPECIMEN Performed By: #### 5 8410-2 ####[facility]ORYCLIA [id number] [address] Gas and Carbon monoxide pane l (BldV)on 06-13-2021 Base excess Calc (BldV) [Moles/Vol] 5.7 mmol/L High 0-2 [facility] Comment on above: Order Comment: Speci men Type: VENOUS BLOOD SPECIMEN Performed By: #### 2 4344-4 ####[facility]ORYCLIA [id number] [address] Body temperature 99.5 [degF] Normal [facility] Comment on above: Order Comment: Speci men Type: VENOUS BLOOD SPECIMEN Performed By: #### 2 4344-4 ####[facility]ORATORYCLIA [id number] [address] CALCIUM IONIZED, PH CORRECTED 1.24 mmol/L Normal 1.08-1.30 [facility] Comment on above: Order Comment: Speci men Type: VENOUS BLOOD SPECIMEN Performed By: #### 2 4344-4 ####[facility]ORYCLIA [id number] [address] Calcium.ionized (BldV) [Mass/Vol] 1.23 mmol/L Normal 1.08-1.30 [facility] Comment on above: Order Comment: Speci men Type: VENOUS BLOOD SPECIMEN Performed By: #### 2 4344-4 ####[facility]ORYCLIA [id number] [address] Carboxyhemoglobin (BldV) [Mass fraction] 1.2 % Normal 0.0-2.0 [facility] Comment on above: Order Comment: Speci men Type: VENOUS BLOOD SPECIMEN Result Comment: Carb oxyhemoglobin Reference Range for Smokers: 2.0-8.0% Performed By: #### 2 4344-4 ####[facility]ORYCLIA [id number] [address] CO2 (BldV) [Partial pressure] 48 mm[Hg] Normal 42-55 [facility] Comment on above: Order Comment: Speci men Type: VENOUS BLOOD SPECIMEN Performed By: #### 2 4344-4 ####[facility]IA [id number] [address] CO2 [Moles/Vol] 28.2 mmol/L Normal 25-29 [facility] Comment on above: Order Comment: Speci men Type: VENOUS BLOOD SPECIMEN Performed By: #### 2 4344-4 ####[facility]CLIA [id number] [address] CO2 adjusted to patient's actual temperature (BldV) [Partial pressure] 49 mmHg Normal 42-55 [facility] Comment on above: Order Comment: Speci men Type: VENOUS BLOOD SPECIMEN Performed By: #### 2 4344-4 ####[facility]ORYCLIA [id number] [address] [place] Glucose [Mass/Vol] 131 mg/dL High 60-105 [facility] Comment on above: Order Comment: Speci men Type: VENOUS BLOOD SPECIMEN Performed By: #### 2 4344-4 ####[facility]ORYCLIA [id number] [address] HCO3 (Bld) [Moles/Vol] 30.6 mmol/L High 24-28 [facility] Comment on above: Order Comment: Speci men Type: VENOUS BLOOD SPECIMEN Performed By: #### 2 4344-4 ####[facility]CLIA [id number] [address] [place] Hematocrit (Bld) [Volume fraction] 32.8 % Low 39.0-51.0 [facility] Comment on above: Order Comment: Speci men Type: VENOUS BLOOD SPECIMEN Performed By: #### 2 4344-4 ####[facility]CLIA [id number] [address] [place] Hemoglobin (Bld) [Mass/Vol] 10.6 g/dL Low 13.0-17.0 [facility] Comment on above: Order Comment: Speci men Type: VENOUS BLOOD SPECIMEN Performed By: #### 2 4344-4 ####[facility]CLIA [id number] [address] STATES [place] LITERS 6 Liters/min Normal [facility] Comment on above: Order Comment: Speci men Type: VENOUS BLOOD SPECIMEN Performed By: #### 2 4344-4 ####[facility]ORATORYCLIA [id number] [place] [address] [place] Methemoglobin (Bld) [Mass fraction] 1.0 % Normal 0.0-1.5 [facility] Comment on above: Order Comment: Speci men Type: VENOUS BLOOD SPECIMEN Performed By: #### 2 4344-4 ####[facility]ORYCLIA [id number] [place] [address] [facility] O2 THERAPY NC = Nasal Cannula Normal [facility] Comment on above: Order Comment: Speci men Type: VENOUS BLOOD SPECIMEN Performed By: #### 2 4344-4 ####[facility]ORYCLIA [id number] [place], [place] [address] [place] [address] [place] Oxygen (BldV) [Partial pressure] 42 mm[Hg] Normal 35-45 [facility] Comment on above: Order Comment: Speci men Type: VENOUS BLOOD SPECIMEN Performed By: #### 2 4344-4 ####[facility]CLIA [id number] [place], [place] [address] [place] [address] Oxygen adjusted to patient's actual temperature (BldV) [Partial pressure] 43.8 mmHg Normal 35-45 [facility] Comment on above: Order Comment: Speci men Type: VENOUS BLOOD SPECIMEN Performed By: #### 2 4344-4 ####[facility]CLIA [id number] [place], [place] [address] [place] [address] [place] Oxygen saturation in Blood 76.7 % Normal 60-85 [facility] Comment on above: Order Comment: Speci men Type: VENOUS BLOOD SPECIMEN Performed By: #### 2 4344-4 ####[facility]ORYCLIA [id number] [place] [address] [facility] [place] Oxyhemoglobin (BldV) [Mass fraction] 75 % Normal 60-85 [facility] Comment on above: Order Comment: Speci men Type: VENOUS BLOOD SPECIMEN Performed By: #### 2 4344-4 ####[facility]ORYCLIA [id number] [place] [address] [place] pH (BldV) 7.42 [pH] Normal 7.32-7.42 [facility] Comment on above: Order Comment: Speci men Type: VENOUS BLOOD SPECIMEN Performed By: #### 2 4344-4 ####[facility]ORY[facility]IA [id number] [address] pH adjusted to patient's actual temperature (BldV) 7.41 Normal 7.32-7.42 [facility] Comment on above: Order Comment: Speci men Type: VENOUS BLOOD SPECIMEN Performed By: #### 2 4344-4 ####[facility]ORYCLIA [id number] [address] Potassium [Moles/Vol] 3.5 mmol/L Normal 3.5-5.0 [facility] Comment on above: Order Comment: Speci men Type: VENOUS BLOOD SPECIMEN Performed By: #### 2 4344-4 ####[facility]ORYCLIA [id number] [address] Sodium [Moles/Vol] 157 mmol/L High 136-144 [facility] Comment on above: Order Comment: Speci men Type: VENOUS BLOOD SPECIMEN Performed By: #### 2 4344-4 ####[facility]ORYCLIA [id number] [address] Magnesium SerPl-mCncon 06-13 Magnesium [Mass/Vol] 3.0 mg/dL High 1.7-2.3 [facility] Comment on above: Order Comment: Speci men Type: BLOOD SPECIMEN Performed By: #### 2 4321-2, , 2776-05 ####[facility]ORYCLIA [id number] [place], [place] [address] [place] [address] Magnesium [Mass/Vol] 2.2 mg/dL Normal 1.7-2.3 [facility] Comment on above: Order Comment: Speci men Type: BLOOD SPECIMEN Performed By: #### 2 4321-2, 2776-05, ####[facility] [id number] [address] Phosphate SerPl-mCncon 06-13 Phosphate [Mass/Vol] 2.2 mg/dL Low 2.7-4.8 [facility] Comment on above: Order Comment: Speci men Type: BLOOD SPECIMEN Performed By: #### 2 4321-2, , 2776-05 ####[facility]ORYCLIA [id number] [place], [place] [address] [place] [address] STATES OF [facility] Phosphate [Mass/Vol] 1.8 mg/dL Low 2.7-4.8 [facility] Comment on above: Order Comment: Speci men Type: BLOOD SPECIMEN Performed By: #### 2 4321-2, 2776-05, ####[facility]ORYCLIA [id number] [address] XR CHEST 1V FRONTALon 2021 XR CHEST 1V FRONTAL Normal [facility] ALLIED HEALTHon 06-12-2021 ALLIED HEALTH Normal [facility] BRIEF OP NOTon 06-12-2021 BRIEF OP NOT Normal [facility] Bacteria Fld Culton 06-12-19 22 Bacteria identified Cx Nom (Body fld) CULTURE, BODY FLD: No growth 5 days GRAM STAIN: No organisms seen Moderate Polymorphonuclear leukocytes Normal [facility] Comment on above: Performed By: #### 6 11-4 ####[facility]ATORYCLIA [id number] [address] [place] Basic metabolic 2000 panelon 06-12-2021 Anion gap [Moles/Vol] 6 mmol/L Low 9-18 [facility] Comment on above: Order Comment: Speci men Type: BLOOD SPECIMEN Performed By: #### 2 777-1, 69274-9, ####[facility]ATORYCLIA [id number] [place], [place] [id number] [place] [address] [place] [facility] Calcium [Mass/Vol] 8.7 mg/dL Normal 8.5-10.2 [facility] Comment on above: Order Comment: Speci men Type: BLOOD SPECIMEN Performed By: #### 2 777-1, , ####[facility]ATORYCLIA [id number] [place], [place] [id number] [place] [address] [place] Chloride [Moles/Vol] 118 mmol/L High 97-105 [facility] Comment on above: Order Comment: Speci men Type: BLOOD SPECIMEN Performed By: #### 2 777-1, , ####[facility]IA [id number] [address] STATES OF [facility] CO2 [Moles/Vol] 28 mmol/L Normal 22-30 [facility] Comment on above: Order Comment: Speci men Type: BLOOD SPECIMEN Performed By: #### 2 777-1, , ####[facility]ORYCLIA [id number] [address] STATES OF [facility] Creatinine [Mass/Vol] 0.77 mg/dL Normal 0.73-1.22 [facility] Comment on above: Order Comment: Speci men Type: BLOOD SPECIMEN Performed By: #### 2 777-1, , ####[facility]ORYCLIA [id number] [address] [place] GFR/1.73 sq M.predicted MDRD (S/P/Bld) [Vol rate/Area] mL/min/{1.73_m2} Normal [facility] Comment on above: [...] actual GFR. Performed By: #### 2 777-1, 86517-4 ####[facility]ORYCLIA [id number] [place] [address] [place] Glucose [Mass/Vol] 116 mg/dL High 74-99 [facility] Comment on above: Order Comment: Speci men Type: BLOOD SPECIMEN Result Comment: The [employer] (ADA) provides guidance for cutoff [...] Standards of Medical Care in Diabetes 2016, [employer]. Diabetes Care. 2016.39(Suppl 1). Performed By: #### 2 777-1, , ####[facility]ORYCLIA [id number] [place] [address] [place] Potassium [Moles/Vol] 4.0 mmol/L Normal 3.7-5.1 [facility] Comment on above: Order Comment: Speci men Type: BLOOD SPECIMEN Performed By: #### 2 777-1, , ####[facility]ORYCLIA [id number] [place] [address] [place] Sodium [Moles/Vol] 152 mmol/L High 136-144 [facility] Comment on above: Order Comment: Speci men Type: BLOOD SPECIMEN Performed By: #### 2 777-1, , ####[facility]ORYCLIA [id number] [place] [address] [place] Urea nitrogen [Mass/Vol] 34 mg/dL High 9-24 [facility] Comment on above: Order Comment: Speci men Type: BLOOD SPECIMEN Performed By: #### 2 777-1, , ####[facility]ORYCLIA [id number] [address] CBC panel Auto (Bld)on 06-12 Erythrocyte distribution width (RBC) [Ratio] 16.1 % High 11.5-15.0 [facility] Comment on above: Order Comment: Speci men Type: BLOOD SPECIMEN Performed By: #### 5 8410-2 ####[facility]ORYCLIA [id number] [address] Hematocrit (Bld) [Volume fraction] 32.8 % Low 39.0-51.0 [facility] Comment on above: Order Comment: Speci men Type: BLOOD SPECIMEN Performed By: #### 5 8410-2 ####[facility]ORYCLIA [id number] [address] Hemoglobin (Bld) [Mass/Vol] 9.9 g/dL Low 13.0-17.0 [facility] Comment on above: Order Comment: Speci men Type: BLOOD SPECIMEN Performed By: #### 5 8410-2 ####[facility]ORYCLIA [id number] [address] MCH (RBC) [Entitic mass] 28.4 pg Normal 26.0-34.0 [facility] Comment on above: Order Comment: Speci men Type: BLOOD SPECIMEN Performed By: #### 5 8410-2 ####[facility]ORYCLIA [id number] [address] MCHC (RBC) [Mass/Vol] 30.2 g/dL Low 30.5-36.0 [facility] Comment on above: Order Comment: Speci men Type: BLOOD SPECIMEN Performed By: #### 5 8410-2 ####[facility]ORYCLIA [id number] [address] MCV (RBC) [Entitic vol] 94.3 fL Normal 80.0-100.0 [facility] Comment on above: Order Comment: Speci men Type: BLOOD SPECIMEN Performed By: #### 5 8410-2 ####[facility]ORYCLIA [id number] [address] Nucleated RBC (Bld) [#/Vol] 10*3/uL Normal <0.01 [facility] Comment on above: Order Comment: Speci men Type: BLOOD SPECIMEN Performed By: #### 5 8410-2 ####[facility]ORYCLIA [id number] [address] Platelet mean volume (Bld) [Entitic vol] 11.2 fL Normal 9.0-12.7 [facility] Comment on above: Order Comment: Speci men Type: BLOOD SPECIMEN Performed By: #### 5 8410-2 ####[facility]ORYCLIA [id number] [address] Platelets (Bld) [#/Vol] 218 10*3/uL Normal 150-400 [facility] Comment on above: Order Comment: Speci men Type: BLOOD SPECIMEN Performed By: #### 5 8410-2 ####[facility]ORYCLIA [id number] [address] RBC (Bld) [#/Vol] 3.48 10*6/uL Low 4.20-6.00 [facility] Comment on above: Order Comment: Speci men Type: BLOOD SPECIMEN Performed By: #### 5 8410-2 ####[facility]ORYCLIA [id number] [address] WBC (Bld) [#/Vol] 13.33 10*3/uL High 3.70-11.00 [facility] Comment on above: Order Comment: Speci men Type: BLOOD SPECIMEN Performed By: #### 5 8410-2 ####[facility]ORYCLIA [id number] [address] CONSULT PROGon 06-12-2021 CONSULT PROG Normal [facility] CT DRN PLACE PERIT/RETROP [place] BIon 06-12-[address] PERIT/RETROP FL BI Normal [facility] HISTORY PHYSICALon 2 HISTORY PHYSICAL Normal [facility] Magnesium SerPl-mCncon 06-12 Magnesium [Mass/Vol] 2.7 mg/dL High 1.7-2.3 [facility] Comment on above: Order Comment: Speci men Type: BLOOD SPECIMEN Performed By: #### 2 777-1, 70614-1, 73354-3 ####[facility]ORYCLIA [id number] [address] [place] PT panel Coag (PPP)on 2021 INR Coag (PPP) [Relative time] 1.1 {INR} Normal 0.9-1.3 [facility] Comment on above: Order Comment: Speci men Type: BLOOD SPECIMEN Result Comment: Yris min K Antagonist (VKA) Therapeutic Range: INR 2 to 3 (Target INR of 2.5)Note: For patients treated with VKA drugs, such as warfarin, the [employer] 2012 Guideline recommends [...] 70: 252-289 Performed By: #### 3 4528-0 ####[facility]ORYCLIA [id number] [address] [place] PT Coag (PPP) [Time] 11.9 s Normal 9.7-13.0 [facility] Comment on above: Order Comment: Speci men Type: BLOOD SPECIMEN Performed By: #### 3 4528-0 ####[facility]ORYCLIA [id number] [place], [place] [address] [place] [address] [place] Phosphate SerPl-mCncon 06-12 Phosphate [Mass/Vol] 2.2 mg/dL Low 2.7-4.8 [facility] Comment on above: Order Comment: Speci men Type: BLOOD SPECIMEN Performed By: #### 2 777-1, 73561-5, 52282-8 ####[facility]ORYCLIA [id number] [address] [place] XR ABDOMEN 1V SUPINEon 06-12 XR ABDOMEN 1V SUPINE Normal [facility] ALLIED HEALTHon 06-11-2021 ALLIED HEALTH Normal [facility] Bacteria Bld Culton 06-11-19 22 Bacteria identified Cx Nom (Bld) CULTURE, BLOOD: No growth 5 days Normal [facility] Comment on above: Performed By: #### 6 00-7 ####[facility]ORYCLIA [id number] [address] OF [facility] Bacteria identified Cx Nom (Bld) CULTURE, BLOOD: No growth 5 days Normal [facility] Comment on above: Performed By: #### 6 00-7 ####[facility]ORYCLIA [id number] [address] [place] Bacteria Ur Culton 2 Bacteria identified Cx Nom (U) CULTURE, URINE: No growth (<1,000 CFU/ml) [facility] Comment on above: Performed By: #### 6 30-4 ####[facility]ORYCLIA [id number] [place] [address] [place] Basic metabolic 2000 panelon 06-11-2021 Anion gap [Moles/Vol] 9 mmol/L Normal 9-18 [facility] Comment on above: Order Comment: Speci men Type: BLOOD SPECIMEN Performed By: #### 1 9123-9, 2777-1, 51832-8 ####[facility]ORYCLIA [id number] [address] STATES OF [facility] Calcium [Mass/Vol] 8.5 mg/dL Normal 8.5-10.2 [facility] Comment on above: Order Comment: Speci men Type: BLOOD SPECIMEN Performed By: #### 1 9123-9, 2777-1, 63990-6 ####[facility]ORYCLIA [id number] [address] STATES OF [facility] Chloride [Moles/Vol] 118 mmol/L High 97-105 [facility] Comment on above: Order Comment: Speci men Type: BLOOD SPECIMEN Performed By: #### 1 9123-9, 2777-, 42987-3 ####[facility]ORYCLIA [id number] [address] CO2 [Moles/Vol] 27 mmol/L Normal 22-30 [facility] Comment on above: Order Comment: Speci men Type: BLOOD SPECIMEN Performed By: #### 1 9123-9, 2777-, 18562-0 ####[facility]ORYCLIA [id number] [address] STATES OF [facility] Creatinine [Mass/Vol] 0.75 mg/dL Normal 0.73-1.22 [facility] Comment on above: Order Comment: Speci men Type: BLOOD SPECIMEN Performed By: #### 1 9123-9, 2777-1, 43561-8 ####[facility]ORYCLIA [id number] [address] [place] GFR/1.73 sq M.predicted MDRD (S/P/Bld) [Vol rate/Area] mL/min/{1.73_m2} Normal [facility] Comment on above: [...] actual GFR. Performed By: #### 1 9123-9, 2776-, 61804-6 ####[facility]ORYCLIA [id number] [place] [address] [place] Glucose [Mass/Vol] 142 mg/dL High 74-99 [facility] Comment on above: Order Comment: Speci men Type: BLOOD SPECIMEN Result Comment: The [employer] (ADA) provides guidance for cutoff [...] Standards of Medical Care in Diabetes 2016, [employer]. Diabetes Care. 2016.39(Suppl 1). Performed By: #### 1 9123-9, 2776-05, ####[facility]ORYCLIA [id number] [place] [address] [place] Potassium [Moles/Vol] 3.6 mmol/L Low 3.7-5.1 [facility] Comment on above: Order Comment: Speci men Type: BLOOD SPECIMEN Performed By: #### 1 9123-9, 2776-05, 37749-6 ####[facility]ORYCLIA [id number] [address] [place] Sodium [Moles/Vol] 154 mmol/L High 136-144 [facility] Comment on above: Order Comment: Speci men Type: BLOOD SPECIMEN Performed By: #### 1 9123-9, 27711-04, 61568-6 ####[facility]ORYCLIA [id number] [address] Urea nitrogen [Mass/Vol] 31 mg/dL High 9-24 [facility] Comment on above: Order Comment: Speci men Type: BLOOD SPECIMEN Performed By: #### 1 9123-9, 2777-1, 99777-2 ####[facility]ORYCLIA [id number] [address] C diff Tox gens Stl Ql MEGAN+p robeon 06-11-2021 C. difficile toxin genes MEGAN+probe Ql (Stl) Negative Normal Negative for C. difficile toxin by PCR [facility] Comment on above: Order Comment: Speci men Type: STOOL SPECIMEN Performed By: #### 5 4067-4 ####[facility]ORYCLIA [id number] [address] CBC W Auto Differential pane l (Bld)on 06-11-2021 Basophils (Bld) [#/Vol] 0.03 10*3/uL Normal <0.11 [facility] Comment on above: Order Comment: Speci men Type: BLOOD SPECIMEN Performed By: #### 5 7021-8 ####[facility]ORYCLIA [id number] [address] Basophils/100 WBC (Bld) 0.2 % Normal [facility] Comment on above: Order Comment: Speci men Type: BLOOD SPECIMEN Performed By: #### 5 7021-8 ####[facility]ORYCLIA [id number] [address] Differential cell count method Nom (Bld) Auto Normal [facility] Comment on above: Order Comment: Speci men Type: BLOOD SPECIMEN Performed By: #### 5 7021-8 ####[facility]ORYCLIA [id number] [address] Eosinophils (Bld) [#/Vol] 0.19 10*3/uL Normal <0.46 [facility] Comment on above: Order Comment: Speci men Type: BLOOD SPECIMEN Performed By: #### 5 7021-8 ####[facility]ORYCLIA [id number] [address] Eosinophils/100 WBC (Bld) 1.5 % Normal [facility] Comment on above: Order Comment: Speci men Type: BLOOD SPECIMEN Performed By: #### 5 7021-8 ####[facility]ORYCLIA [id number] [address] Erythrocyte distribution width (RBC) [Ratio] 16.3 % High 11.5-15.0 [facility] Comment on above: Order Comment: Speci men Type: BLOOD SPECIMEN Performed By: #### 5 7021-8 ####[facility]ORYCLIA [id number] [address] Hematocrit (Bld) [Volume fraction] 32.1 % Low 39.0-51.0 [facility] Comment on above: Order Comment: Speci men Type: BLOOD SPECIMEN Performed By: #### 5 7021-8 ####[facility]ORYCLIA [id number] [address] Hemoglobin (Bld) [Mass/Vol] 9.3 g/dL Low 13.0-17.0 [facility] Comment on above: Order Comment: Speci men Type: BLOOD SPECIMEN Performed By: #### 5 7021-8 ####[facility]ORYCLIA [id number] [address] IMMATURE GRAN % 0.6 % Normal [facility] Comment on above: Order Comment: Speci men Type: BLOOD SPECIMEN Performed By: #### 5 7021-8 ####[facility]ORYCLIA [id number] [address] IMMATURE GRAN ABS 0.08 k/uL Normal <0.10 [facility] Comment on above: Order Comment: Speci men Type: BLOOD SPECIMEN Performed By: #### 5 7021-8 ####[facility]ORYCLIA [id number] [address] Lymphocytes (Bld) [#/Vol] 1.65 10*3/uL Normal 1.00-4.00 [facility] Comment on above: Order Comment: Speci men Type: BLOOD SPECIMEN Performed By: #### 5 7021-8 ####[facility]ORYCLIA [id number] [address] Lymphocytes/100 WBC (Bld) 12.8 % Normal [facility] Comment on above: Order Comment: Speci men Type: BLOOD SPECIMEN Performed By: #### 5 7021-8 ####[facility]ORYCLIA [id number] [address] MCH (RBC) [Entitic mass] 27.2 pg Normal 26.0-34.0 [facility] Comment on above: Order Comment: Speci men Type: BLOOD SPECIMEN Performed By: #### 5 7021-8 ####[facility]ORYCLIA [id number] [address] MCHC (RBC) [Mass/Vol] 29.0 g/dL Low 30.5-36.0 [facility] Comment on above: Order Comment: Speci men Type: BLOOD SPECIMEN Performed By: #### 5 7021-8 ####[facility]ORYCLIA [id number] [address] MCV (RBC) [Entitic vol] 93.9 fL Normal 80.0-100.0 [facility] Comment on above: Order Comment: Speci men Type: BLOOD SPECIMEN Performed By: #### 5 7021-8 ####[facility]ORYCLIA [id number] [address] Monocytes (Bld) [#/Vol] 0.68 10*3/uL Normal <0.87 [facility] Comment on above: Order Comment: Speci men Type: BLOOD SPECIMEN Performed By: #### 5 7021-8 ####[facility]ORYCLIA [id number] [address] Monocytes/100 WBC (Bld) 5.3 % Normal [facility] Comment on above: Order Comment: Speci men Type: BLOOD SPECIMEN Performed By: #### 5 7021-8 ####[facility]ORYCLIA [id number] [address] Neutrophils (Bld) [#/Vol] 10.22 10*3/uL High 1.45-7.50 [facility] Comment on above: Order Comment: Speci men Type: BLOOD SPECIMEN Performed By: #### 5 7021-8 ####[facility]CLIA [id number] [address] Neutrophils/100 WBC (Bld) 79.6 % Normal [facility] Comment on above: Order Comment: Speci men Type: BLOOD SPECIMEN Performed By: #### 5 7021-8 ####[facility]ORYCLIA [id number] [address] Nucleated RBC (Bld) [#/Vol] 10*3/uL Normal <0.01 [facility] Comment on above: Order Comment: Speci men Type: BLOOD SPECIMEN Performed By: #### 5 7021-8 ####[facility]CLIA [id number] [address] Nucleated RBC/100 WBC (Bld) [Ratio] 0.0 /100 WBC Normal 0.0 [facility] Comment on above: Order Comment: Speci men Type: BLOOD SPECIMEN Performed By: #### 5 7021-8 ####[facility]ORYCLIA [id number] [address] Platelet mean volume (Bld) [Entitic vol] 11.1 fL Normal 9.0-12.7 [facility] Comment on above: Order Comment: Speci men Type: BLOOD SPECIMEN Performed By: #### 5 7021-8 ####[facility]ORYCLIA [id number] [address] [place] Platelets (Bld) [#/Vol] 188 10*3/uL Normal 150-400 [facility] Comment on above: Order Comment: Speci men Type: BLOOD SPECIMEN Performed By: #### 5 7021-8 ####[facility]ORYCLIA [id number] [address] RBC (Bld) [#/Vol] 3.42 10*6/uL Low 4.20-6.00 [facility] Comment on above: Order Comment: Speci men Type: BLOOD SPECIMEN Performed By: #### 5 7021-8 ####[facility]ORYCLIA [id number] [address] WBC (Bld) [#/Vol] 12.85 10*3/uL High 3.70-11.00 [facility] Comment on above: Order Comment: Speci men Type: BLOOD SPECIMEN Performed By: #### 5 7021-8 ####[facility]ORYCLIA [id number] [address] CBC panel Auto (Bld)on 06-11 Erythrocyte distribution width (RBC) [Ratio] 16.2 % High 11.5-15.0 [facility] Comment on above: Order Comment: Speci men Type: BLOOD SPECIMEN Performed By: #### 5 8410-2 ####[facility]ORYCLIA [id number] [address] Hematocrit (Bld) [Volume fraction] 34.5 % Low 39.0-51.0 [facility] Comment on above: Order Comment: Speci men Type: BLOOD SPECIMEN Performed By: #### 5 8410-2 ####[facility]ORYCLIA [id number] [address] Hemoglobin (Bld) [Mass/Vol] 10.3 g/dL Low 13.0-17.0 [facility] Comment on above: Order Comment: Speci men Type: BLOOD SPECIMEN Performed By: #### 5 8410-2 ####[facility]ORYCLIA [id number] [address] MCH (RBC) [Entitic mass] 28.1 pg Normal 26.0-34.0 [facility] Comment on above: Order Comment: Speci men Type: BLOOD SPECIMEN Performed By: #### 5 8410-2 ####[facility]ORYCLIA [id number] [address] MCHC (RBC) [Mass/Vol] 29.9 g/dL Low 30.5-36.0 [facility] Comment on above: Order Comment: Speci men Type: BLOOD SPECIMEN Performed By: #### 5 8410-2 ####[facility]ORYCLIA [id number] [address] MCV (RBC) [Entitic vol] 94.3 fL Normal 80.0-100.0 [facility] Comment on above: Order Comment: Speci men Type: BLOOD SPECIMEN Performed By: #### 5 8410-2 ####[facility]ORYCLIA [id number] [address] Nucleated RBC (Bld) [#/Vol] 10*3/uL Normal <0.01 [facility] Comment on above: Order Comment: Speci men Type: BLOOD SPECIMEN Performed By: #### 5 8410-2 ####[facility]ORYCLIA [id number] [address] Platelet mean volume (Bld) [Entitic vol] 10.9 fL Normal 9.0-12.7 [facility] Comment on above: Order Comment: Speci men Type: BLOOD SPECIMEN Performed By: #### 5 8410-2 ####[facility]ORYCLIA [id number] [address] Platelets (Bld) [#/Vol] 210 10*3/uL Normal 150-400 [facility] Comment on above: Order Comment: Speci men Type: BLOOD SPECIMEN Performed By: #### 5 8410-2 ####[facility]ORYCLIA [id number] [address] RBC (Bld) [#/Vol] 3.66 10*6/uL Low 4.20-6.00 [facility] Comment on above: Order Comment: Speci men Type: BLOOD SPECIMEN Performed By: #### 5 8410-2 ####[facility]ORYCLIA [id number] [address] WBC (Bld) [#/Vol] 13.03 10*3/uL High 3.70-11.00 [facility] Comment on above: Order Comment: Speci men Type: BLOOD SPECIMEN Performed By: #### 5 8410-2 ####[facility]ORYCLIA [id number] [address] CONSULT PROGon 06-11-2021 CONSULT PROG Normal [facility] CONSULT PROG Normal [facility] CONSULT PROG Normal [facility] CT ABD/PEL W IVCONon 022 CT ABD/PEL W IVCON Invalid Interpretation Code [facility] Magnesium SerPl-mCncon 06-11 Magnesium [Mass/Vol] 2.7 mg/dL High 1.7-2.3 [facility] Comment on above: Order Comment: Speci men Type: BLOOD SPECIMEN Performed By: #### 1 9123-9, 2777-1, 68020-8 ####[facility]ORYCLIA [id number] [address] Phosphate SerPl-mCncon 06-11 Phosphate [Mass/Vol] 2.5 mg/dL Low 2.7-4.8 [facility] Comment on above: Order Comment: Speci men Type: BLOOD SPECIMEN Performed By: #### 1 9123-9, 2777-1, 82391-1 ####[facility]ORYCLIA [id number] [address] Basic metabolic 2000 panelon 06-10-2021 Anion gap [Moles/Vol] 7 mmol/L Low 9-18 [facility] Comment on above: Order Comment: Speci men Type: BLOOD SPECIMEN Performed By: #### 2 777-1, 02969-0, , HFP ####[facility]ATORYCLIA [id number] [place] [address] [place] Calcium [Mass/Vol] 8.5 mg/dL Normal 8.5-10.2 [facility] Comment on above: Order Comment: Speci men Type: BLOOD SPECIMEN Performed By: #### 2 777-1, 19097-0, , HFP ####[facility]ORYCLIA [id number] [place] [address] [place] Chloride [Moles/Vol] 118 mmol/L High 97-105 [facility] Comment on above: Order Comment: Speci men Type: BLOOD SPECIMEN Performed By: #### 2 777-1, 49260-8, , HFP ####[facility]ORYCLIA [id number] [place] [address] [place] CO2 [Moles/Vol] 26 mmol/L Normal 22-30 [facility] Comment on above: Order Comment: Speci men Type: BLOOD SPECIMEN Performed By: #### 2 777-1, 74419-4, , HFP ####[facility]ORYCLIA [id number] [address] [place] Creatinine [Mass/Vol] 0.70 mg/dL Low 0.73-1.22 [facility] Comment on above: Order Comment: Speci men Type: BLOOD SPECIMEN Performed By: #### 2 777-1, 36533-2, , HFP ####[facility]ORYCLIA [id number] [place] [address] [place] GFR/1.73 sq M.predicted MDRD (S/P/Bld) [Vol rate/Area] mL/min/{1.73_m2} Normal [facility] Comment on above: [...] actual GFR. Performed By: #### 2 777-1, 93019-1, , [facility] ####[facility] LABORATORYIA [id number] [place] [address] [place] Glucose [Mass/Vol] 135 mg/dL High 74-99 [facility] Comment on above: Order Comment: Speci men Type: BLOOD SPECIMEN Result Comment: The [employer] (ADA) provides guidance for cutoff [...] Standards of Medical Care in Diabetes 2016, [employer]. Diabetes Care. 2016.39(Suppl 1). Performed By: #### 2 777-1, 47371-3, , [facility] ####[facility] LABORATORYIA [id number] [place] [address] [place] Potassium [Moles/Vol] 3.9 mmol/L Normal 3.7-5.1 [facility] Comment on above: Order Comment: Speci men Type: BLOOD SPECIMEN Performed By: #### 2 777-1, 66208-6, , [facility] ####[facility] LABORATORYCLIA [id number] [place] [address] [place] Sodium [Moles/Vol] 151 mmol/L High 136-144 [facility] Comment on above: Order Comment: Speci men Type: BLOOD SPECIMEN Performed By: #### 2 777-1, 49919-2, , [facility] ####[facility]ORATORYCLIA [id number] [address] Urea nitrogen [Mass/Vol] 27 mg/dL High 9-24 [facility] Comment on above: Order Comment: Speci men Type: BLOOD SPECIMEN Performed By: #### 2 777-1, 51939-6, , [facility] ####[facility] LABORATORYCLIA [id number] [address] CASE MANAGEMon 06-10-2021 CASE MANAGEM Normal [facility] CBC panel Auto (Bld)on 06-10 Erythrocyte distribution width (RBC) [Ratio] 16.2 % High 11.5-15.0 [facility] Comment on above: Order Comment: Speci men Type: BLOOD SPECIMEN Performed By: #### 5 8410-2 ####[facility]ATORYCLIA [id number] [address] Hematocrit (Bld) [Volume fraction] 34.8 % Low 39.0-51.0 [facility] Comment on above: Order Comment: Speci men Type: BLOOD SPECIMEN Performed By: #### 5 8410-2 ####[facility]IA [id number] [address] Hemoglobin (Bld) [Mass/Vol] 10.2 g/dL Low 13.0-17.0 [facility] Comment on above: Order Comment: Speci men Type: BLOOD SPECIMEN Performed By: #### 5 8410-2 ####[facility]ORY[facility]IA [id number] [address] MCH (RBC) [Entitic mass] 27.1 pg Normal 26.0-34.0 [facility] Comment on above: Order Comment: Speci men Type: BLOOD SPECIMEN Performed By: #### 5 8410-2 ####[facility]ORY[facility]IA [id number] [address] MCHC (RBC) [Mass/Vol] 29.3 g/dL Low 30.5-36.0 [facility] Comment on above: Order Comment: Speci men Type: BLOOD SPECIMEN Performed By: #### 5 8410-2 ####[facility]ORYCLIA [id number] [address] MCV (RBC) [Entitic vol] 92.6 fL Normal 80.0-100.0 [facility] Comment on above: Order Comment: Speci men Type: BLOOD SPECIMEN Performed By: #### 5 8410-2 ####[facility]ORYCLIA [id number] [address] Nucleated RBC (Bld) [#/Vol] 10*3/uL Normal <0.01 [facility] Comment on above: Order Comment: Speci men Type: BLOOD SPECIMEN Performed By: #### 5 8410-2 ####[facility]ORYCLIA [id number] [address] Platelet mean volume (Bld) [Entitic vol] 10.4 fL Normal 9.0-12.7 [facility] Comment on above: Order Comment: Speci men Type: BLOOD SPECIMEN Performed By: #### 5 8410-2 ####[facility]ORYCLIA [id number] [address] Platelets (Bld) [#/Vol] 206 10*3/uL Normal 150-400 [facility] Comment on above: Order Comment: Speci men Type: BLOOD SPECIMEN Performed By: #### 5 8410-2 ####[facility]ORYCLIA [id number] [address] RBC (Bld) [#/Vol] 3.76 10*6/uL Low 4.20-6.00 [facility] Comment on above: Order Comment: Speci men Type: BLOOD SPECIMEN Performed By: #### 5 8410-2 ####[facility]ORYCLIA [id number] [place] [address] [facility] WBC (Bld) [#/Vol] 11.36 10*3/uL High 3.70-11.00 [facility] Comment on above: Order Comment: Speci men Type: BLOOD SPECIMEN Performed By: #### 5 8410-2 ####[facility]ORYCLIA [id number] [address] HEPATIC FUNCTION PNLon 06-10 Albumin [Mass/Vol] 3.1 g/dL Low 3.9-4.9 [facility] Comment on above: Order Comment: Speci men Type: BLOOD SPECIMEN Performed By: #### 2 777-1, 83493-1, , HFP ####[facility]ATORYCLIA [id number] [place], [place] [address] [place] [address] OF [facility] ALP [Catalytic activity/Vol] 73 U/L Normal 38-113 [facility] Comment on above: Order Comment: Speci men Type: BLOOD SPECIMEN Performed By: #### 2 777-1, 35185-0, , HFP ####[facility]ORYCLIA [id number] [address] STATES OF [facility] ALT With P-5'-P [Catalytic activity/Vol] 64 U/L High 10-54 [facility] Comment on above: Order Comment: Speci men Type: BLOOD SPECIMEN Performed By: #### 2 777-1, 60035-6, , HFP ####[facility]ORYCLIA [id number] [place], [place] [address] [place] [address] OF [place] AST With P-5'-P [Catalytic activity/Vol] 44 U/L High 14-40 [facility] Comment on above: Order Comment: Speci men Type: BLOOD SPECIMEN Performed By: #### 2 777-1, 79774-7, , HFP ####[facility]ORYCLIA [id number] [place], [place] [id number] [place] [address] [place] Bilirubin [Mass/Vol] 0.5 mg/dL Normal 0.2-1.3 [facility] Comment on above: Order Comment: Speci men Type: BLOOD SPECIMEN Performed By: #### 2 777-1, 09859-9, , [facility] ####[facility]ORYCLIA [id number] [address] Bilirubin.conjugated [Mass/Vol] mg/dL Normal <0.2 [facility] Comment on above: Order Comment: Speci men Type: BLOOD SPECIMEN Performed By: #### 2 777-1, 79651-5, , [facility] ####[facility]ORYCLIA [id number] [address] Protein [Mass/Vol] 5.7 g/dL Low 6.3-8.0 [facility] Comment on above: Order Comment: Speci men Type: BLOOD SPECIMEN Performed By: #### 2 777-1, , , [facility] ####[facility]ORYCLIA [id number] [address] LEVETIRACETAMon 06-10-2021 levETIRAcetam [Mass/Vol] 57.7 ug/mL High 12.0-46.0 [facility] Comment on above: [...] its performance characteristics determined by [facility]'s Isrrael Perez [facility] Pathology and Laboratory Medicine [place] ( [facility]). It has not been cleared or approved by the FDA. [facility] is regulated under CLIA as qualified to perform high complexity testing. This test is used for clinical purposes. It should not be regarded as investigational or for research. Performed By: #### L DARY ####[facility] LABCLIA [id number] [id number] [address] [place] Magnesium SerPl-mCncon 06-10 Magnesium [Mass/Vol] 2.7 mg/dL High 1.7-2.3 [facility] Comment on above: Order Comment: Speci men Type: BLOOD SPECIMEN Performed By: #### 2 777-1, 37964-3, , [facility] ####[facility]ORYCLIA [id number] [place] [address] [place] Phosphate SerPl-ncon 06-10 Phosphate [Mass/Vol] 1.8 mg/dL Low 2.7-4.8 [facility] Comment on above: Order Comment: Speci men Type: BLOOD SPECIMEN Performed By: #### 2 777-1, 18570-0, , [facility] ####[facility]ATORYCLIA [id number] [place] [address] [place] ALLIED HEALTHon 06-09-2021 ALLIED HEALTH Normal [facility] ALLIED HEALTH Normal [facility] ALLIED HEALTH Normal [facility] ALLIED HEALTH Normal [facility] Basic metabolic 2000 panelon 06-09-2021 Anion gap [Moles/Vol] 8 mmol/L Low 9-18 [facility] Comment on above: Order Comment: Speci men Type: BLOOD SPECIMEN Performed By: #### 2 4321-2, 2776-05, ####[facility]ATORYCLIA [id number] [place] [address] [place] Calcium [Mass/Vol] 8.3 mg/dL Low 8.5-10.2 [facility] Comment on above: Order Comment: Speci men Type: BLOOD SPECIMEN Performed By: #### 2 4321-2, 2776-05, ####[facility]ATORYCLIA [id number] [place] [address] [place] Chloride [Moles/Vol] 116 mmol/L High 97-105 [facility] Comment on above: Order Comment: Speci men Type: BLOOD SPECIMEN Performed By: #### 2 4321-2, 2776-, ####[facility]ATORYCLIA [id number] [place], [place] [address] [place] [address] STATES OF [facility] CO2 [Moles/Vol] 27 mmol/L Normal 22-30 [facility] Comment on above: Order Comment: Speci men Type: BLOOD SPECIMEN Performed By: #### 2 4321-2, 2776-05, ####[facility]ATORYCLIA [id number] [address] STATES OF [place] Creatinine [Mass/Vol] 0.70 mg/dL Low 0.73-1.22 [facility] Comment on above: Order Comment: Speci men Type: BLOOD SPECIMEN Performed By: #### 2 4321-2, 2776-05, ####[facility]ORYCLIA [id number] [address] STATES OF [place] GFR/1.73 sq M.predicted MDRD (S/P/Bld) [Vol rate/Area] mL/min/{1.73_m2} Normal [facility] Comment on above: [...] GFR. Performed By: #### 2 4321-2, 2776-05, ####[facility]ATORYCLIA [id number] [place], [place] [address] [place] [address] [place] Glucose [Mass/Vol] 123 mg/dL High 74-99 [facility] Comment on above: Order Comment: Speci men Type: BLOOD SPECIMEN Result Comment: The [employer] (ADA) provides guidance for cutoff [...] Standards of Medical Care in Diabetes 2016, [employer]. Diabetes Care. 2016.39(Suppl 1). Performed By: #### 2 4321-2, 2776-05, ####[facility]ATORYCLIA [id number] [place] [address] [place] Potassium [Moles/Vol] 3.5 mmol/L Low 3.7-5.1 [facility] Comment on above: Order Comment: Speci men Type: BLOOD SPECIMEN Performed By: #### 2 1-2, 2776-05, ####[facility]ORYCLIA [id number] [address] STATES [facility] Sodium [Moles/Vol] 151 mmol/L High 136-144 [facility] Comment on above: Order Comment: Speci men Type: BLOOD SPECIMEN Performed By: #### 2 1-2, 2776-05, ####[facility]ATORYCLIA [id number] [place] [address] [place] Urea nitrogen [Mass/Vol] 39 mg/dL High 9-24 [facility] Comment on above: Order Comment: Speci men Type: BLOOD SPECIMEN Performed By: #### 2 1-2, 2776-05, ####[facility]ATORYCLIA [id number] [address] STATES OF [place] CBC panel Auto (Bld)on 06-09 Erythrocyte distribution width (RBC) [Ratio] 16.2 % High 11.5-15.0 [facility] Comment on above: Order Comment: Speci men Type: BLOOD SPECIMEN Performed By: #### 5 8410-2 ####[facility]ATORYCLIA [id number] [address] Hematocrit (Bld) [Volume fraction] 33.7 % Low 39.0-51.0 [facility] Comment on above: Order Comment: Speci men Type: BLOOD SPECIMEN Performed By: #### 5 8410-2 ####[facility]ORYCLIA [id number] [address] Hemoglobin (Bld) [Mass/Vol] 10.2 g/dL Low 13.0-17.0 [facility] Comment on above: Order Comment: Speci men Type: BLOOD SPECIMEN Performed By: #### 5 8410-2 ####[facility]ORYCLIA [id number] [address] MCH (RBC) [Entitic mass] 27.4 pg Normal 26.0-34.0 [facility] Comment on above: Order Comment: Speci men Type: BLOOD SPECIMEN Performed By: #### 5 8410-2 ####[facility]ORYCLIA [id number] [address] MCHC (RBC) [Mass/Vol] 30.3 g/dL Low 30.5-36.0 [facility] Comment on above: Order Comment: Speci men Type: BLOOD SPECIMEN Performed By: #### 5 8410-2 ####[facility]ORYCLIA [id number] [address] MCV (RBC) [Entitic vol] 90.6 fL Normal 80.0-100.0 [facility] Comment on above: Order Comment: Speci men Type: BLOOD SPECIMEN Performed By: #### 5 8410-2 ####[facility]ORYCLIA [id number] [address] Nucleated RBC (Bld) [#/Vol] 10*3/uL Normal <0.01 [facility] Comment on above: Order Comment: Speci men Type: BLOOD SPECIMEN Performed By: #### 5 8410-2 ####[facility]ORYCLIA [id number] [address] Platelet mean volume (Bld) [Entitic vol] 10.3 fL Normal 9.0-12.7 [facility] Comment on above: Order Comment: Speci men Type: BLOOD SPECIMEN Performed By: #### 5 8410-2 ####[facility]ORYCLIA [id number] [address] STATES [facility] Platelets (Bld) [#/Vol] 219 10*3/uL Normal 150-400 [facility] Comment on above: Order Comment: Speci men Type: BLOOD SPECIMEN Performed By: #### 5 8410-2 ####[facility]ORYCLIA [id number] [address] STATES [facility] RBC (Bld) [#/Vol] 3.72 10*6/uL Low 4.20-6.00 [facility] Comment on above: Order Comment: Speci men Type: BLOOD SPECIMEN Performed By: #### 5 8410-2 ####[facility]ORYCLIA [id number] [address] WBC (Bld) [#/Vol] 13.02 10*3/uL High 3.70-11.00 [facility] Comment on above: Order Comment: Speci men Type: BLOOD SPECIMEN Performed By: #### 5 8410-2 ####[facility]ORYCLIA [id number] [address] CONSULT PROGon 06-09-2021 CONSULT PROG Normal [facility] CONSULT PROG Normal [facility] CT BRAIN WO IVCONon 06-09-19 CT BRAIN WO IVCON Normal [facility] Magnesium SerPl-mCncon 06-09 Magnesium [Mass/Vol] 2.8 mg/dL High 1.7-2.3 [facility] Comment on above: Order Comment: Speci men Type: BLOOD SPECIMEN Performed By: #### 2 4321-2, 2777-1, 77181-3 ####[facility]ATORYCLIA [id number] [address] OF [facility] NURSING PROGon 06-09-2021 NURSING PROG Normal [facility] NUTRITIONon 06-09-2021 NUTRITION Normal [facility] PT EDon 06-09-2021 PT ED Normal [facility] Phosphate SerPl-mCncon 06-09 Phosphate [Mass/Vol] 2.2 mg/dL Low 2.7-4.8 [facility] Comment on above: Order Comment: Speci men Type: BLOOD SPECIMEN Performed By: #### 2 4321-2, 2777-1, 24700-8 ####[facility]ATORYCLIA [id number] [address] Vancomycin random [Mass/Vol] on 06-09-2021 Vancomycin [Mass/Vol] 18.9 ug/mL Normal 10.0-20.0 [facility] Comment on above: Order Comment: Speci men Type: BLOOD SPECIMEN Result Comment: Refe rence ranges and high/low indicator flags are provided as general guidelines only. The treating physician must determine appropriate target levels/dosing based on the specific clinical situation. Performed By: #### 4 091-5 ####[facility]ATORYCLIA [id number] [address] XR ABD 2V SUPINE W UPR/DECUB /CTLon 06-09-2021 XR ABD 2V SUPINE W UPR/DECUB/CTL Normal [facility] XR CHEST 1V FRONTALon 2021 XR CHEST 1V FRONTAL Normal [facility] XR NECK SOFT TISSUE 2V AP/LA Ton 06-09-2021 XR NECK SOFT TISSUE 2V AP/LAT Normal [facility] XR SKULL 2V AP/LATon 022 XR SKULL 2V AP/LAT Normal [facility] ALLIED HEALTHon 06-08-2021 ALLIED HEALTH Normal [facility] ANES POSTPROC EVALon 022 ANES POSTPROC EVAL Normal [facility] ANES PRE-OPon 06-08-2021 ANES PRE-OP Normal [facility] BRIEF OP NOTon 06-08-2021 BRIEF OP NOT Normal [facility] Bacteria Spec Anaerobe Culto n 06-08-2021 Bacteria identified Anaer cx Nom (Unsp spec) ORGANISM ID: 1 Rare Staphylococcus saccharolyticus Identification performed by [facility] CC-Main See scanned document for susceptibility report Normal [facility] Comment on above: Performed By: #### 6 462-6, 635-3 ####[facility]ATORYCLIA [id number] [address] [place] Bacteria Wnd Culton 06-08-19 22 Bacteria identified Cx Nom (Wound) CULTURE, INTRAOPERATIVE HARDWARE: No growth 5 days GRAM STAIN: Not performed on specimen type Normal [facility] Comment on above: Performed By: #### 6 462-6, 635-3 ####[facility]ATORYCLIA [id number] [place] [address] [place] Basic metabolic 2000 panelon 06-08-2021 Anion gap [Moles/Vol] 9 mmol/L Normal 9-18 [facility] Comment on above: Order Comment: Speci men Type: BLOOD SPECIMEN Performed By: #### 2 4321-2, 2777-1, ####[facility]ATORYCLIA [id number] [place] [address] [place] Calcium [Mass/Vol] 8.7 mg/dL Normal 8.5-10.2 [facility] Comment on above: Order Comment: Speci men Type: BLOOD SPECIMEN Performed By: #### 2 4321-2, 7-1, ####[facility]ATORYCLIA [id number] [address] [place] Chloride [Moles/Vol] 113 mmol/L High 97-105 [facility] Comment on above: Order Comment: Speci men Type: BLOOD SPECIMEN Performed By: #### 2 4321-2, 2776-05, ####[facility]ATORYCLIA [id number] [place], [place] [address] [place] [address] STATES OF [facility] CO2 [Moles/Vol] 26 mmol/L Normal 22-30 [facility] Comment on above: Order Comment: Speci men Type: BLOOD SPECIMEN Performed By: #### 2 4321-2, 2776-05, ####[facility]ORYCLIA [id number] [address] STATES OF [facility] Creatinine [Mass/Vol] 0.68 mg/dL Low 0.73-1.22 [facility] Comment on above: Order Comment: Speci men Type: BLOOD SPECIMEN Performed By: #### 2 4321-2, 2776-05, ####[facility]ORYCLIA [id number] [address] [place] GFR/1.73 sq M.predicted MDRD (S/P/Bld) [Vol rate/Area] mL/min/{1.73_m2} Normal [facility] Comment on above: [...] GFR. Performed By: #### 2 4321-2, 2776-05, ####[facility]ORYCLIA [id number] [address] [place] Glucose [Mass/Vol] 146 mg/dL High 74-99 [facility] Comment on above: Order Comment: Speci men Type: BLOOD SPECIMEN Result Comment: The [place] [employer] (ADA) provides guidance for cutoff [...] Standards of Medical Care in Diabetes 2016, [place] [employer]. Diabetes Care. 2016.39(Suppl 1). Performed By: #### 2 4321-2, 2776-05, ####[facility]ORYCLIA [id number] [address] STATES OF [facility] Potassium [Moles/Vol] 3.6 mmol/L Low 3.7-5.1 [facility] Comment on above: Order Comment: Speci men Type: BLOOD SPECIMEN Performed By: #### 2 4321-2, 2776-05, ####[facility]ORYCLIA [id number] [address] STATES [facility] Sodium [Moles/Vol] 148 mmol/L High 136-144 [facility] Comment on above: Order Comment: Speci men Type: BLOOD SPECIMEN Performed By: #### 2 4321-2, 2776-05, ####[facility]ORYCLIA [id number] [address] STATES OF [facility] Urea nitrogen [Mass/Vol] 36 mg/dL High 9-24 [facility] Comment on above: Order Comment: Speci men Type: BLOOD SPECIMEN Performed By: #### 2 4321-2, 2776-05, ####[facility]ATORYCLIA [id number] [address] OF [place] CASE MANAGEMon 06-08-2021 CASE MANAGEM Normal [facility] CBC panel Auto (Bld)on 06-08 Erythrocyte distribution width (RBC) [Ratio] 16.0 % High 11.5-15.0 [facility] Comment on above: Order Comment: Speci men Type: BLOOD SPECIMEN Performed By: #### 5 8410-2 ####[facility]ATORYCLIA [id number] [address] Hematocrit (Bld) [Volume fraction] 38.4 % Low 39.0-51.0 [facility] Comment on above: Order Comment: Speci men Type: BLOOD SPECIMEN Performed By: #### 5 8410-2 ####[facility]ATORYCLIA [id number] [address] Hemoglobin (Bld) [Mass/Vol] 12.1 g/dL Low 13.0-17.0 [facility] Comment on above: Order Comment: Speci men Type: BLOOD SPECIMEN Performed By: #### 5 8410-2 ####[facility]ATORYCLIA [id number] [address] MCH (RBC) [Entitic mass] 28.3 pg Normal 26.0-34.0 [facility] Comment on above: Order Comment: Speci men Type: BLOOD SPECIMEN Performed By: #### 5 8410-2 ####[facility]ATORYCLIA [id number] [address] MCHC (RBC) [Mass/Vol] 31.5 g/dL Normal 30.5-36.0 [facility] Comment on above: Order Comment: Speci men Type: BLOOD SPECIMEN Performed By: #### 5 8410-2 ####[facility]ATORYCLIA [id number] [address] MCV (RBC) [Entitic vol] 89.9 fL Normal 80.0-100.0 [facility] Comment on above: Order Comment: Speci men Type: BLOOD SPECIMEN Performed By: #### 5 8410-2 ####[facility]ATORYCLIA [id number] [address] Nucleated RBC (Bld) [#/Vol] 10*3/uL Normal <0.01 [facility] Comment on above: Order Comment: Speci men Type: BLOOD SPECIMEN Performed By: #### 5 8410-2 ####[facility]ATORYCLIA [id number] [address] Platelet mean volume (Bld) [Entitic vol] 10.3 fL Normal 9.0-12.7 [facility] Comment on above: Order Comment: Speci men Type: BLOOD SPECIMEN Performed By: #### 5 8410-2 ####[facility] LABORATORYCLIA [id number] [address] OF [facility] Platelets (Bld) [#/Vol] 236 10*3/uL Normal 150-400 [facility] Comment on above: Order Comment: Speci men Type: BLOOD SPECIMEN Performed By: #### 5 8410-2 ####[facility]ORYCLIA [id number] [address] RBC (Bld) [#/Vol] 4.27 10*6/uL Normal 4.20-6.00 [facility] Comment on above: Order Comment: Speci men Type: BLOOD SPECIMEN Performed By: #### 5 8410-2 ####[facility] LABORATORYCLIA [id number] [address] WBC (Bld) [#/Vol] 11.06 10*3/uL High 3.70-11.00 [facility] Comment on above: Order Comment: Speci men Type: BLOOD SPECIMEN Performed By: #### 5 8410-2 ####[facility]ATORYCLIA [id number] [address] CONSULT PROGon 06-08-2021 CONSULT PROG Normal [facility] CT BRAIN WO IVCONon 06-08-[address] BRAIN WO IVCON Normal [facility] Magnesium SerPl-mCncon 06-08 Magnesium [Mass/Vol] 2.8 mg/dL High 1.7-2.3 [facility] Comment on above: Order Comment: Speci men Type: BLOOD SPECIMEN Performed By: #### 2 4321-2, 2777-1, 91922-2 ####[facility]ATORYCLIA [id number] [place] [id number] [facility] Microorganism Spec Culton Microorganism identified Cx Nom (Unsp spec) CULTURE, FUNGAL: No Fungus isolated after 28 days FUNGAL SMEAR: No fungus seen Normal [facility] Comment on above: Performed By: #### 1 1475-1 ####[facility]ATORYCLIA [id number] [address] NURSING PROGon 06-08-2021 NURSING PROG Normal [facility] OPERATIVE NOon 06-08-2021 OPERATIVE NO Normal [facility] OPERATIVE NO Normal [facility] PT panel Coag (PPP)on 2021 INR Coag (PPP) [Relative time] 1.1 {INR} Normal 0.9-1.3 [facility] Comment on above: Order Comment: Speci men Type: BLOOD SPECIMEN Result Comment: Yris min K Antagonist (VKA) Therapeutic Range: INR 2 to 3 (Target INR of 2.5)Note: For patients treated with VKA drugs, such as warfarin, the [employer] 2012 Guideline recommends [...] 70: 252-289 Performed By: #### 3 4528-0, 87016-0 ####[facility]ATORYCLIA [id number] [place] [id number] [place] PT Coag (PPP) [Time] 11.9 s Normal 9.7-13.0 [facility] Comment on above: Order Comment: Speci men Type: BLOOD SPECIMEN Performed By: #### 3 4528-0, 40786-1 ####[facility]ATORYCLIA [id number] [address] OF [facility] Phosphate SerPl-mCncon 06-08 Phosphate [Mass/Vol] 2.3 mg/dL Low 2.7-4.8 [facility] Comment on above: Order Comment: Speci men Type: BLOOD SPECIMEN Performed By: #### 2 4321-2, 2777-1, 97765-3 ####[facility]ATORYCLIA [id number] [address] aPTT PPPon 06-08-2021 aPTT Coag (PPP) [Time] 24.2 s Normal 23.0-32.4 [facility] Comment on above: Order Comment: Speci men Type: BLOOD SPECIMEN Performed By: #### 3 4528-0, 92249-5 ####[facility]ORATORYCLIA [id number] [address] OF [facility] ALLIED HEALTHon 06-07-2021 ALLIED HEALTH Normal [facility] ALLIED HEALTH Normal [facility] ALLIED HEALTH Normal [facility] Bacteria CSF Culton 06-07-19 22 Bacteria identified Cx Nom (CSF) CULTURE, CSF: No growth 14 days GRAM STAIN: No organisms seen Rare Mononuclear cells Rare Polymorphonuclear leukocytes Gram stain performed on cytospun specimen. Normal [facility] Comment on above: Performed By: #### 6 06-4 ####[facility]ATORYCLIA [id number] [address] STATES OF [facility] Basic metabolic 2000 panelon 06-07-2021 Anion gap [Moles/Vol] 9 mmol/L Normal 9-18 [facility] Comment on above: Order Comment: Speci men Type: BLOOD SPECIMEN Performed By: #### 1 9123-9, 2777-1, 91119-8 ####[facility]ATORYCLIA [id number] [address] STATES OF [facility] Calcium [Mass/Vol] 8.8 mg/dL Normal 8.5-10.2 [facility] Comment on above: Order Comment: Speci men Type: BLOOD SPECIMEN Performed By: #### 1 9123-9, 2777-1, 30264-2 ####[facility]ORYCLIA [id number] [address] [place] Chloride [Moles/Vol] 111 mmol/L High 97-105 [facility] Comment on above: Order Comment: Speci men Type: BLOOD SPECIMEN Performed By: #### 1 9123-9, 277-, 01305-4 ####[facility]ORYCLIA [id number] [address] CO2 [Moles/Vol] 27 mmol/L Normal 22-30 [facility] Comment on above: Order Comment: Speci men Type: BLOOD SPECIMEN Performed By: #### 1 9123-9, 2777-1, 54803-5 ####[facility]ORYCLIA [id number] [address] STATES [place] Creatinine [Mass/Vol] 0.66 mg/dL Low 0.73-1.22 [facility] Comment on above: Order Comment: Speci men Type: BLOOD SPECIMEN Performed By: #### 1 9123-9, 2777-1, 31261-2 ####[facility]ORYCLIA [id number] [address] STATES [place] GFR/1.73 sq M.predicted MDRD (S/P/Bld) [Vol rate/Area] mL/min/{1.73_m2} Normal [facility] Comment on above: [...] GFR. Performed By: #### 1 9123-9, 2777-, 25057-3 ####[facility]ORYCLIA [id number] [place] [address] [place] Glucose [Mass/Vol] 123 mg/dL High 74-99 [facility] Comment on above: Order Comment: Speci men Type: BLOOD SPECIMEN Result Comment: The [place] Diabetes Association (ADA) provides guidance for cutoff [...] Standards of Medical Care in Diabetes 2016, [employer] Diabetes [employer]. Diabetes Care. 2016.39(Suppl 1). Performed By: #### 1 9123-9, 2776-05, 69713-1 ####[facility]ORYCLIA [id number] [place] [address] [place] Potassium [Moles/Vol] 3.6 mmol/L Low 3.7-5.1 [facility] Comment on above: Order Comment: Speci men Type: BLOOD SPECIMEN Performed By: #### 1 9123-9, 27711-04, 02820-7 ####[facility]ATORYCLIA [id number] [address] STATES [place] Sodium [Moles/Vol] 147 mmol/L High 136-144 [facility] Comment on above: Order Comment: Speci men Type: BLOOD SPECIMEN Performed By: #### 1 9123-9, 27711-04, 92014-6 ####[facility]CLIA [id number] [address] STATES [facility] Urea nitrogen [Mass/Vol] 30 mg/dL High 9-24 [facility] Comment on above: Order Comment: Speci men Type: BLOOD SPECIMEN Performed By: #### 1 9123-9, 2777-1, 03805-6 ####[facility]ORYCLIA [id number] [address] [place] CBC W Auto Differential pane l (Bld)on 06-07-2021 Basophils (Bld) [#/Vol] 10*3/uL Normal <0.11 [facility] Comment on above: Order Comment: Speci men Type: BLOOD SPECIMEN Performed By: #### 5 7021-8 ####[facility]CLIA [id number] [address] Basophils/100 WBC (Bld) 0.2 % Normal [facility] Comment on above: Order Comment: Speci men Type: BLOOD SPECIMEN Performed By: #### 5 7021-8 ####[facility]ORYCLIA [id number] [address] Differential cell count method Nom (Bld) Auto Normal [facility] Comment on above: Order Comment: Speci men Type: BLOOD SPECIMEN Performed By: #### 5 7021-8 ####[facility]ORYCLIA [id number] [address] STATES [place] Eosinophils (Bld) [#/Vol] 0.06 10*3/uL Normal <0.46 [facility] Comment on above: Order Comment: Speci men Type: BLOOD SPECIMEN Performed By: #### 5 7021-8 ####[facility]ORYCLIA [id number] [address] [place] Eosinophils/100 WBC (Bld) 0.6 % Normal [facility] Comment on above: Order Comment: Speci men Type: BLOOD SPECIMEN Performed By: #### 5 7021-8 ####[facility]ORYCLIA [id number] [address] Erythrocyte distribution width (RBC) [Ratio] 15.8 % High 11.5-15.0 [facility] Comment on above: Order Comment: Speci men Type: BLOOD SPECIMEN Performed By: #### 5 7021-8 ####[facility]ORYCLIA [id number] [address] Hematocrit (Bld) [Volume fraction] 40.4 % Normal 39.0-51.0 [facility] Comment on above: Order Comment: Speci men Type: BLOOD SPECIMEN Performed By: #### 5 7021-8 ####[facility]ORYCLIA [id number] [address] Hemoglobin (Bld) [Mass/Vol] 12.4 g/dL Low 13.0-17.0 [facility] Comment on above: Order Comment: Speci men Type: BLOOD SPECIMEN Performed By: #### 5 7021-8 ####[facility]ORYCLIA [id number] [address] IMMATURE GRAN % 0.7 % Normal [facility] Comment on above: Order Comment: Speci men Type: BLOOD SPECIMEN Performed By: #### 5 7021-8 ####[facility]ATORYCLIA [id number] [address] IMMATURE GRAN ABS 0.07 k/uL Normal <0.10 [facility] Comment on above: Order Comment: Speci men Type: BLOOD SPECIMEN Performed By: #### 5 7021-8 ####[facility]ORYCLIA [id number] [address] Lymphocytes (Bld) [#/Vol] 1.43 10*3/uL Normal 1.00-4.00 [facility] Comment on above: Order Comment: Speci men Type: BLOOD SPECIMEN Performed By: #### 5 7021-8 ####[facility]ORYCLIA [id number] [address] Lymphocytes/100 WBC (Bld) 14.1 % Normal [facility] Comment on above: Order Comment: Speci men Type: BLOOD SPECIMEN Performed By: #### 5 7021-8 ####[facility]ORYCLIA [id number] [address] MCH (RBC) [Entitic mass] 27.6 pg Normal 26.0-34.0 [facility] Comment on above: Order Comment: Speci men Type: BLOOD SPECIMEN Performed By: #### 5 7021-8 ####[facility]ORYCLIA [id number] [address] MCHC (RBC) [Mass/Vol] 30.7 g/dL Normal 30.5-36.0 [facility] Comment on above: Order Comment: Speci men Type: BLOOD SPECIMEN Performed By: #### 5 7021-8 ####[facility]ORYCLIA [id number] [address] MCV (RBC) [Entitic vol] 89.8 fL Normal 80.0-100.0 [facility] Comment on above: Order Comment: Speci men Type: BLOOD SPECIMEN Performed By: #### 5 7021-8 ####[facility]ORYCLIA [id number] [address] Monocytes (Bld) [#/Vol] 0.82 10*3/uL Normal <0.87 [facility] Comment on above: Order Comment: Speci men Type: BLOOD SPECIMEN Performed By: #### 5 7021-8 ####[facility]ORYCLIA [id number] [address] Monocytes/100 WBC (Bld) 8.1 % Normal [facility] Comment on above: Order Comment: Speci men Type: BLOOD SPECIMEN Performed By: #### 5 7021-8 ####[facility]ORYCLIA [id number] [address] Neutrophils (Bld) [#/Vol] 7.74 10*3/uL High 1.45-7.50 [facility] Comment on above: Order Comment: Speci men Type: BLOOD SPECIMEN Performed By: #### 5 7021-8 ####[facility]ORYCLIA [id number] [address] Neutrophils/100 WBC (Bld) 76.3 % Normal [facility] Comment on above: Order Comment: Speci men Type: BLOOD SPECIMEN Performed By: #### 5 7021-8 ####[facility]ORYCLIA [id number] [address] Nucleated RBC (Bld) [#/Vol] 10*3/uL Normal <0.01 [facility] Comment on above: Order Comment: Speci men Type: BLOOD SPECIMEN Performed By: #### 5 7021-8 ####[facility]ORYCLIA [id number] [address] Nucleated RBC/100 WBC (Bld) [Ratio] 0.0 /100 WBC Normal 0.0 [facility] Comment on above: Order Comment: Speci men Type: BLOOD SPECIMEN Performed By: #### 5 7021-8 ####[facility]ORYCLIA [id number] [address] Platelet mean volume (Bld) [Entitic vol] 10.4 fL Normal 9.0-12.7 [facility] Comment on above: Order Comment: Speci men Type: BLOOD SPECIMEN Performed By: #### 5 7021-8 ####[facility]ATORYCLIA [id number] [address] Platelets (Bld) [#/Vol] 236 10*3/uL Normal 150-400 [facility] Comment on above: Order Comment: Speci men Type: BLOOD SPECIMEN Performed By: #### 5 7021-8 ####[facility]ORYCLIA [id number] [address] [place] RBC (Bld) [#/Vol] 4.50 10*6/uL Normal 4.20-6.00 [facility] Comment on above: Order Comment: Speci men Type: BLOOD SPECIMEN Performed By: #### 5 7021-8 ####[facility]ORYCLIA [id number] [address] WBC (Bld) [#/Vol] 10.14 10*3/uL Normal 3.70-11.00 [facility] Comment on above: Order Comment: Speci men Type: BLOOD SPECIMEN Performed By: #### 5 7021-8 ####[facility]ORYCLIA [id number] [address] CBC panel Auto (Bld)on 06-07 Erythrocyte distribution width (RBC) [Ratio] 15.8 % High 11.5-15.0 [facility] Comment on above: Order Comment: Speci men Type: BLOOD SPECIMEN Performed By: #### 5 8410-2 ####[facility]ORYCLIA [id number] [address] Hematocrit (Bld) [Volume fraction] 40.0 % Normal 39.0-51.0 [facility] Comment on above: Order Comment: Speci men Type: BLOOD SPECIMEN Performed By: #### 5 8410-2 ####[facility]ORYCLIA [id number] [address] Hemoglobin (Bld) [Mass/Vol] 12.3 g/dL Low 13.0-17.0 [facility] Comment on above: Order Comment: Speci men Type: BLOOD SPECIMEN Performed By: #### 5 8410-2 ####[facility]ORYCLIA [id number] [address] MCH (RBC) [Entitic mass] 27.3 pg Normal 26.0-34.0 [facility] Comment on above: Order Comment: Speci men Type: BLOOD SPECIMEN Performed By: #### 5 8410-2 ####[facility]ORYCLIA [id number] [address] MCHC (RBC) [Mass/Vol] 30.8 g/dL Normal 30.5-36.0 [facility] Comment on above: Order Comment: Speci men Type: BLOOD SPECIMEN Performed By: #### 5 8410-2 ####[facility]ORYCLIA [id number] [address] MCV (RBC) [Entitic vol] 88.7 fL Normal 80.0-100.0 [facility] Comment on above: Order Comment: Speci men Type: BLOOD SPECIMEN Performed By: #### 5 8410-2 ####[facility]ORYCLIA [id number] [address] Nucleated RBC (Bld) [#/Vol] 10*3/uL Normal <0.01 [facility] Comment on above: Order Comment: Speci men Type: BLOOD SPECIMEN Performed By: #### 5 8410-2 ####[facility]ORYCLIA [id number] [address] Platelet mean volume (Bld) [Entitic vol] 10.0 fL Normal 9.0-12.7 [facility] Comment on above: Order Comment: Speci men Type: BLOOD SPECIMEN Performed By: #### 5 8410-2 ####[facility]ORYCLIA [id number] [address] Platelets (Bld) [#/Vol] 234 10*3/uL Normal 150-400 [facility] Comment on above: Order Comment: Speci men Type: BLOOD SPECIMEN Performed By: #### 5 8410-2 ####[facility]ORYCLIA [id number] [address] RBC (Bld) [#/Vol] 4.51 10*6/uL Normal 4.20-6.00 [facility] Comment on above: Order Comment: Speci men Type: BLOOD SPECIMEN Performed By: #### 5 8410-2 ####[facility]ORYCLIA [id number] [address] WBC (Bld) [#/Vol] 11.47 10*3/uL High 3.70-11.00 [facility] Comment on above: Order Comment: Speci men Type: BLOOD SPECIMEN Performed By: #### 5 8410-2 ####[facility]ORYCLIA [id number] [address] OF [facility] CONSULT PROGon 06-07-2021 CONSULT PROG Normal [facility] CONSULT PROG Normal [facility] CSF MANUAL DIFFon 06-07-2021 DIF TTL, CSF 92 cells counted Normal [facility] Comment on above: Order Comment: Speci men Type: CEREBROSPINAL FLUID Performed By: #### 3 4563-7, [id number], [id number] ####[facility]ORYCLIA [id number] [address] [place] EOSIN%, CSF 1 % Normal [facility] Comment on above: Order Comment: Speci men Type: CEREBROSPINAL FLUID Performed By: #### 3 4563-7, [id number], [id number] ####[facility]ORYCLIA [id number] [address] [place] LYMPH%, CSF 21 % Low 50-90 [facility] Comment on above: Order Comment: Speci men Type: CEREBROSPINAL FLUID Performed By: #### 3 4563-7, [id number], [id number] ####[facility]ORYCLIA [id number] [address] [place] MACRO%, CSF 27 % High <1 [facility] Comment on above: Order Comment: Speci men Type: CEREBROSPINAL FLUID Result Comment: Tati ected result: Previously reported as 22 % on 06/07/2021 at 1:49 PM EST. Performed By: #### 3 4563-7, [id number], [id number] ####[facility]ORYCLIA [id number] [address] [place] MONO%, CSF 36 % Normal 10-50 [facility] Comment on above: Order Comment: Speci men Type: CEREBROSPINAL FLUID Performed By: #### 3 4563-7, [id number], [id number] ####[facility]ATORYCLIA [id number] [place], [place] [address] [place] [address] [place] NEUT%, CSF 11 % High 0-3 [facility] Comment on above: Order Comment: Speci men Type: CEREBROSPINAL FLUID Performed By: #### 3 4563-7, [id number], [id number] ####[facility]ORYCLIA [id number] [address] [place] OTHER CL%, CSF 4 % Normal [facility] Comment on above: Order Comment: Speci men Type: CEREBROSPINAL FLUID Result Comment: Path review to follow.Corrected result: Previously reported as 10 % on 06/07/2021 at 1:49 PM EST. Performed By: #### 3 4563-7, [id number], [id number] ####[facility]ORYCLIA [id number] [address] [place] CSF PATHOLOGIST INTERP (LAB REFLEX ORDER-NO BILL)on 06-07-2021 CSF STAFF REVIEW Negative for maligna nt cells. Rare immature myeloid or ventricular lining cells. Normal [facility] Comment on above: Order Comment: Speci men Type: CEREBROSPINAL FLUID Performed By: #### 3 4563-7, AFQ5552, [id number] ####[facility]ORYCLIA [id number] [address] Pathologist name Reviewed by Eloise rebolledo MD Normal [facility] Comment on above: Order Comment: Speci men Type: CEREBROSPINAL FLUID Performed By: #### 3 4563-7, [id number], [id number] ####[facility]ORYCLIA [id number] [address] [place] CT BRAIN WO IVCONon 06-07-19 CT BRAIN WO IVCON Normal [facility] CT BRAIN WO IVCON Normal [facility] Cell count panel (CSF)on Clarity (CSF) Clear Normal Clear [facility] Comment on above: Order Comment: Speci men Type: CEREBROSPINAL FLUID Performed By: #### 3 4563-7, [id number], [id number] ####[facility]ORYCLIA [id number] [address] Clarity (Unsp spec) Not Indicated Normal Clear [facility] Comment on above: Order Comment: Speci men Type: CEREBROSPINAL FLUID Performed By: #### 3 4563-7, [id number], [id number] ####[facility]CLIA [id number] [address] Color (CSF) Colorless Normal Colorless [facility] Comment on above: Order Comment: Speci men Type: CEREBROSPINAL FLUID Performed By: #### 3 4563-7, [id number], PHJ3052 ####[facility]CLIA [id number] [address] Color (Spun CSF) Not Indicated Normal Colorless [facility] Comment on above: Order Comment: Speci men Type: CEREBROSPINAL FLUID Performed By: #### 3 4563-7, [id number], [id number] ####[facility]ORYCLIA [id number] [address] CSF TUBE NUMBER [employer] Normal [facility] Comment on above: Order Comment: Speci men Type: CEREBROSPINAL FLUID Performed By: #### 3 4563-7, KHT2929, [id number] ####[facility]ORYCLIA [id number] [address] OF [facility] RBC Manual cnt (CSF) [#/Vol] 42 cells/uL High 0-5 [facility] Comment on above: Order Comment: Speci men Type: CEREBROSPINAL FLUID Performed By: #### 3 4563-7, CFV5286, [id number] ####[facility]CLIA [id number] [address] WBC Manual cnt (CSF) [#/Vol] 1 cells/uL Normal 0-[address] [place] [address] Comment on above: Order Comment: Speci men Type: CEREBROSPINAL FLUID Performed By: #### 3 4563-7, UBG3565, URB7400 ####[facility]ORYCLIA [id number] [place] [address] [place] Glucose CSF-mCncon 2 Glucose (CSF) [Mass/Vol] 92 mg/dL High 40-70 [facility] Comment on above: Order Comment: Speci men Type: CEREBROSPINAL FLUID Result Comment: Lumb ar CSF glucose values of healthy patients are approximately 60% of the plasma values and must always be compared with a concurrently measured plasma value for adequate clinical interpretation.References: 1. Glucose HK (GLUC3) [package insert V 12.0 [place]an]. [employer], [place], [place]. September 2015. 2. Michelle Moore, Loki HGarfield (2015). Chapter 7: Glucose and Lactate. F. Irina rose al.(eds.), Cerebrospinal Fluid in Clinical Neurology. Pepin: [employer]. Performed By: #### 2 880-3, 2342-4 ####[facility]ORYCLIA [id number] [address] [place] Lactate (Bld) [Moles/Vol]on 06-07-2021 Lactate [Moles/Vol] 0.9 mmol/L Normal 0.5-2.2 [facility] Comment on above: Order Comment: Speci men Type: BLOOD SPECIMEN Performed By: #### 3 2693-4 ####[facility]ATORYCLIA [id number] [place] [address] [place] Lipase SerPl-cCncon 06-07-19 22 Lipase [Catalytic activity/Vol] 35 U/L Normal 16-61 [facility] Comment on above: Order Comment: Speci men Type: BLOOD SPECIMEN Performed By: #### 3 040-3, PROCAL ####[facility]ATORYCLIA [id number] [place] [address] [place] Magnesium SerPl-ncon 06-07 Magnesium [Mass/Vol] 2.7 mg/dL High 1.7-2.3 [facility] Comment on above: Order Comment: Speci men Type: BLOOD SPECIMEN Performed By: #### 1 9123-9, 2777-1, 63766-8 ####[facility]ORYCLIA [id number] [address] PROCALCITONIN (LAB)on 2021 Procalcitonin [Mass/Vol] 0.13 ng/mL High <0.09 [facility] Comment on above: Order Comment: Speci men Type: BLOOD SPECIMEN Result Comment: For a guided interpretation of test results, please visit the Change in Procalcitonin Calculator, [email or web address]. Performed By: #### 3 040-3, PROCAL ####[facility]ATORYCLIA [id number] [address] OF [facility] Phosphate SerPl-ncon 06-07 Phosphate [Mass/Vol] 1.9 mg/dL Low 2.7-4.8 [facility] Comment on above: Order Comment: Speci men Type: BLOOD SPECIMEN Performed By: #### 1 9123-9, 2777-1, 28527-4 ####[facility]ORYCLIA [id number] [address] Prot CSF-ncon 06-07-2021 Protein (CSF) [Mass/Vol] 33 mg/dL Normal 15-45 [facility] Comment on above: Order Comment: Speci men Type: CEREBROSPINAL FLUID Performed By: #### 2 880-3, 2342-4 ####[facility]ORYCLIA [id number] [address] [place] SARS-CoV-2 RNA Resp Ql MEGAN+p robeon 06-07-2021 SARS-CoV-2 (COVID-19) RNA MEGAN+probe Ql (Resp) COVID 19 RESULT: SARS-CoV-2 (Agent of COVID-19) Not Detected by PCR. This test has been authorized by FDA under an Emergency Use Authorization (EUA). [facility] Comment on above: Performed By: #### 9 4500-6 ####[facility]ORYCLIA [id number] [address] OF [facility] TYPE AND SCREENon 06-07-2021 ABO O Normal [facility] Comment on above: Order Comment: Speci men Type: BLOOD SPECIMEN Performed By: #### T SCR ####[facility]ANKCLIA [id number] [address] HISTORICAL AB SCR STATUS Negative Normal [facility] Comment on above: Order Comment: Speci men Type: BLOOD SPECIMEN Performed By: #### T SCR ####[facility]ANKCLIA [id number] [address] Rh Nom (Bld) Positive Normal [facility] Comment on above: Order Comment: Speci men Type: BLOOD SPECIMEN Performed By: #### T SCR ####[facility]ANKCLIA [id number] [address] TYPE AND SCREEN EXPIRATION 06/10/2021 23:59 Normal [facility] Comment on above: Order Comment: Speci men Type: BLOOD SPECIMEN Performed By: #### T SCR ####[facility]ANKCLIA [id number] [address] Vancomycin random [Mass/Vol] on 06-07-2021 Vancomycin [Mass/Vol] 16.5 ug/mL Normal 10.0-20.0 [facility] Comment on above: Order Comment: Speci men Type: BLOOD SPECIMEN Result Comment: Refe rence ranges and high/low indicator flags are provided as general guidelines only. The treating physician must determine appropriate target levels/dosing based on the specific clinical situation. Performed By: #### 4 091-5 ####[facility]ATORYCLIA [id number] [address] XR CHEST 1V FRONTAL PORTon 0 06-07-2021 XR CHEST 1V FRONTAL PORT Normal [facility] Basic metabolic 2000 panelon 06-06-2021 Anion gap [Moles/Vol] 11 mmol/L Normal 9-18 [facility] Comment on above: Order Comment: Speci men Type: BLOOD SPECIMEN Performed By: #### 2 4321-2, 19069-9, 2777-1 ####[facility]ATORYCLIA [id number] [place], [place] [address] [address] [place] Calcium [Mass/Vol] 8.6 mg/dL Normal 8.5-10.2 [facility] Comment on above: Order Comment: Speci men Type: BLOOD SPECIMEN Performed By: #### 2 4321-2, , 2776-05 ####[facility]ATORYCLIA [id number] [address] [place] Chloride [Moles/Vol] 108 mmol/L High 97-105 [facility] Comment on above: Order Comment: Speci men Type: BLOOD SPECIMEN Performed By: #### 2 1-2, , 2776-05 ####[facility]ORYCLIA [id number] [address] CO2 [Moles/Vol] 25 mmol/L Normal 22-30 [facility] Comment on above: Order Comment: Speci men Type: BLOOD SPECIMEN Performed By: #### 2 4321-2, , 2776-05 ####[facility]ORYCLIA [id number] [address] Creatinine [Mass/Vol] 0.76 mg/dL Normal 0.73-1.22 [facility] Comment on above: Order Comment: Speci men Type: BLOOD SPECIMEN Performed By: #### 2 4321-2, , 2776-05 ####[facility]ORYCLIA [id number] [address] [place] GFR/1.73 sq M.predicted MDRD (S/P/Bld) [Vol rate/Area] mL/min/{1.73_m2} Normal [facility] Comment on above: [...] Performed By: #### 2 1-2, , 2776-05 ####[facility]ATORYCLIA [id number] [place] [address] [place] Glucose [Mass/Vol] 116 mg/dL High 74-99 [facility] Comment on above: Order Comment: Speci men Type: BLOOD SPECIMEN Result Comment: The [employer] (ADA) provides guidance for cutoff [...] Standards of Medical Care in Diabetes 2016, [employer]. Diabetes Care. 2016.39(Suppl 1). Performed By: #### 2 4320-2, , 2776-05 ####[facility]ATORYCLIA [id number] [address] [place] Potassium [Moles/Vol] 3.5 mmol/L Low 3.7-5.1 [facility] Comment on above: Order Comment: Speci men Type: BLOOD SPECIMEN Performed By: #### 2 1-2, , 2776-05 ####[facility]ATORYCLIA [id number] [address] [place] Sodium [Moles/Vol] 144 mmol/L Normal 136-144 [facility] Comment on above: Order Comment: Speci men Type: BLOOD SPECIMEN Performed By: #### 2 1-2, , 2776-05 ####[facility]ATORYCLIA [id number] [address] STATES [facility] Urea nitrogen [Mass/Vol] 31 mg/dL High 9-24 [facility] Comment on above: Order Comment: Speci men Type: BLOOD SPECIMEN Performed By: #### 2 4321-2, 42946-0, 277-1 ####[facility]ORYCLIA [id number] [address] CASE MANAGEMon 06-06-2021 CASE MANAGEM Normal [facility] CBC panel Auto (Bld)on 06-06 Erythrocyte distribution width (RBC) [Ratio] 15.8 % High 11.5-15.0 [facility] Comment on above: Order Comment: Speci men Type: BLOOD SPECIMEN Performed By: #### 5 8410-2 ####[facility]ORYCLIA [id number] [address] Hematocrit (Bld) [Volume fraction] 39.5 % Normal 39.0-51.0 [facility] Comment on above: Order Comment: Speci men Type: BLOOD SPECIMEN Performed By: #### 5 8410-2 ####[facility]ORYCLIA [id number] [address] Hemoglobin (Bld) [Mass/Vol] 12.2 g/dL Low 13.0-17.0 [facility] Comment on above: Order Comment: Speci men Type: BLOOD SPECIMEN Performed By: #### 5 8410-2 ####[facility]ORYCLIA [id number] [address] MCH (RBC) [Entitic mass] 27.8 pg Normal 26.0-34.0 [facility] Comment on above: Order Comment: Speci men Type: BLOOD SPECIMEN Performed By: #### 5 8410-2 ####[facility]ORYCLIA [id number] [address] MCHC (RBC) [Mass/Vol] 30.9 g/dL Normal 30.5-36.0 [facility] Comment on above: Order Comment: Speci men Type: BLOOD SPECIMEN Performed By: #### 5 8410-2 ####[facility]ORYCLIA [id number] [address] MCV (RBC) [Entitic vol] 90.0 fL Normal 80.0-100.0 [facility] Comment on above: Order Comment: Speci men Type: BLOOD SPECIMEN Performed By: #### 5 8410-2 ####[facility]ORYCLIA [id number] [address] Nucleated RBC (Bld) [#/Vol] 10*3/uL Normal <0.01 [facility] Comment on above: Order Comment: Speci men Type: BLOOD SPECIMEN Performed By: #### 5 8410-2 ####[facility]ORYCLIA [id number] [address] Platelet mean volume (Bld) [Entitic vol] 10.4 fL Normal 9.0-12.7 [facility] Comment on above: Order Comment: Speci men Type: BLOOD SPECIMEN Performed By: #### 5 8410-2 ####[facility]ORYCLIA [id number] [address] Platelets (Bld) [#/Vol] 236 10*3/uL Normal 150-400 [facility] Comment on above: Order Comment: Speci men Type: BLOOD SPECIMEN Performed By: #### 5 8410-2 ####[facility]ORYCLIA [id number] [address] RBC (Bld) [#/Vol] 4.39 10*6/uL Normal 4.20-6.00 [facility] Comment on above: Order Comment: Speci men Type: BLOOD SPECIMEN Performed By: #### 5 8410-2 ####[facility]ORYCLIA [id number] [address] WBC (Bld) [#/Vol] 9.74 10*3/uL Normal 3.70-11.00 [facility] Comment on above: Order Comment: Speci men Type: BLOOD SPECIMEN Performed By: #### 5 8410-2 ####[facility]ORYCLIA [id number] [address] CONSULT PROGon 06-06-2021 CONSULT PROG Normal [facility] CONSULT PROG Normal [facility] Magnesium SerPl-mCncon 06-06 Magnesium [Mass/Vol] 2.5 mg/dL High 1.7-2.3 [facility] Comment on above: Order Comment: Speci men Type: BLOOD SPECIMEN Performed By: #### 2 4321-2, 95835-9, 2777-1 ####[facility]ORYCLIA [id number] [address] PT panel Coag (PPP)on 2021 INR Coag (PPP) [Relative time] 1.0 {INR} Normal 0.9-1.3 [facility] Comment on above: Order Comment: Speci men Type: BLOOD SPECIMEN Result Comment: Yris min K Antagonist (VKA) Therapeutic Range: INR 2 to 3 (Target INR of 2.5)Note: For patients treated with VKA drugs, such as warfarin, the [employer] 2012 Guideline recommends [...] 3).Jeffy GH, et al. Chest 2012, 141:7S-47SAlba MURRY et al. [facility] 2017, 70: 252-289 Performed By: #### 3 4528-0, 89428-8 ####[facility]ORYCLIA [id number] [address] PT Coag (PPP) [Time] 11.4 s Normal 9.7-13.0 [facility] Comment on above: Order Comment: Speci men Type: BLOOD SPECIMEN Performed By: #### 3 4528-0, 79017-6 ####[facility]ORYCLIA [id number] [address] Phosphate SerPl-mCncon 06-06 Phosphate [Mass/Vol] 2.3 mg/dL Low 2.7-4.8 [facility] Comment on above: Order Comment: Speci men Type: BLOOD SPECIMEN Performed By: #### 2 4321-2, 74175-1, 2777-1 ####[facility]ORYCLIA [id number] [address] THROMBOGRAPH HEPARINASE PANE Kiel 06-06-2021 Clot angle after addition of heparinase TEG (Bld) [Angle] 70.2 degrees Normal 47.0-74.0 [facility] Comment on above: Order Comment: Speci men Type: BLOOD SPECIMEN Performed By: #### T EGHPP ####[facility]ORYCLIA [id number] [address] Clot Lysis 30 Min post maximum clot amplitude TEG (Bld) [Length fraction] 0.0 % Normal 0.0-8.0 [facility] Comment on above: Order Comment: Speci men Type: BLOOD SPECIMEN Performed By: #### T EGHPP ####[facility]ORYCLIA [id number] [address] Clotting time after addition of heparinase TEG (Bld) 5.7 minutes Normal 4.0-10.0 [facility] Comment on above: Order Comment: Speci men Type: BLOOD SPECIMEN Performed By: #### T EGHPP ####[facility]ORYCLIA [id number] [address] Coagulation index TEG Qn (Bld) 1.2 Normal -4.6-3.2 [facility] Comment on above: Order Comment: Speci men Type: BLOOD SPECIMEN Result Comment: The Coagulation Index, a secondary parameter, is labeled by the continuity tester as for research use only and is used per the continuity tester's instructions. Its performance characteristics were determined by [facility]'s Isrrael Chris [facility] Pathology and Laboratory Medicine [place] in a manner consistent with CLIA requirements. This test has not been cleared by the U.S. Food and Drug Administration. Performed By: #### T EGHPP ####[facility]ATORYCLIA [id number] [address] Maximum clot firmness after addition of heparinase TEG (Bld) [Length] 64.0 mm Normal 51.0-75.0 [facility] Comment on above: Order Comment: Speci men Type: BLOOD SPECIMEN Performed By: #### T EGHPP ####[facility]ATORYCLIA [id number] [address] Vancomycin random [Mass/Vol] on 06-06-2021 Vancomycin [Mass/Vol] 17.4 ug/mL Normal 10.0-20.0 [facility] Comment on above: Order Comment: Speci men Type: BLOOD SPECIMEN Result Comment: Refe rence ranges and high/low indicator flags are provided as general guidelines only. The treating physician must determine appropriate target levels/dosing based on the specific clinical situation. Performed By: #### 4 091-5 ####[facility]ATORYCLIA [id number] [address] STATES OF [facility] Vancomycin [Mass/Vol] 13.5 ug/mL Normal 10.0-20.0 [facility] Comment on above: Order Comment: Speci men Type: BLOOD SPECIMEN Result Comment: Refe rence ranges and high/low indicator flags are provided as general guidelines only. The treating physician must determine appropriate target levels/dosing based on the specific clinical situation. Performed By: #### 4 091-5 ####[facility]ORYCLIA [id number] [address] [place] aPTT PPPon 01-31-2022 aPTT Coag (PPP) [Time] 27.8 s Normal 23.0-32.4 [facility] Comment on above: Order Comment: Speci men Type: BLOOD SPECIMEN Performed By: #### 3 4528-0, 62638-3 ####[facility]ORYCLIA [id number] [address] STATES OF [facility] Basic metabolic 2000 panelon 06-05-2021 Anion gap [Moles/Vol] 11 mmol/L Normal 9-18 [facility] Comment on above: Order Comment: Speci men Type: BLOOD SPECIMEN Performed By: #### 1 9123-9, 00445-1, 7- ####[facility]ORYCLIA [id number] [address] [place] Calcium [Mass/Vol] 8.6 mg/dL Normal 8.5-10.2 [facility] Comment on above: Order Comment: Speci men Type: BLOOD SPECIMEN Performed By: #### 1 9123-9, 71453-9, 2776- ####[facility]ORYCLIA [id number] [address] [place] Chloride [Moles/Vol] 108 mmol/L High 97-105 [facility] Comment on above: Order Comment: Speci men Type: BLOOD SPECIMEN Performed By: #### 1 9123-9, 87673-2, 7- ####[facility]ORYCLIA [id number] [address] [place] CO2 [Moles/Vol] 25 mmol/L Normal 22-30 [facility] Comment on above: Order Comment: Speci men Type: BLOOD SPECIMEN Performed By: #### 1 9123-9, 95483-5, 2777-1 ####[facility]ORYCLIA [id number] [address] [place] Creatinine [Mass/Vol] 0.77 mg/dL Normal 0.73-1.22 [facility] Comment on above: Order Comment: Speci men Type: BLOOD SPECIMEN Performed By: #### 1 9123-9, 13889-2, 2777- ####[facility]ITALIA [id number] [place] [address] [place] GFR/1.73 sq M.predicted MDRD (S/P/Bld) [Vol rate/Area] mL/min/{1.73_m2} Normal [facility] Comment on above: [...] actual GFR. Performed By: #### 1 9123-9, 27753-5, 2776-05 ####[facility]ITALIA [id number] [place] [address] [place] Glucose [Mass/Vol] 96 mg/dL Normal 74-99 [facility] Comment on above: Order Comment: Speci men Type: BLOOD SPECIMEN Result Comment: The [employer] (ADA) provides guidance for cutoff [...] Standards of Medical Care in Diabetes 2016, [employer]. Diabetes Care. 2016.39(Suppl 1). Performed By: #### 1 9123-9, 43893-0, 2777- ####[facility]ITALIA [id number] [address] Potassium [Moles/Vol] 3.9 mmol/L Normal 3.7-5.1 [facility] Comment on above: Order Comment: Speci men Type: BLOOD SPECIMEN Performed By: #### 1 9123-9, 20417-0, 2776- ####[facility]ORYCLIA [id number] [address] Sodium [Moles/Vol] 144 mmol/L Normal 136-144 [facility] Comment on above: Order Comment: Speci men Type: BLOOD SPECIMEN Performed By: #### 1 9123-9, 34644-9, 2776- ####[facility]ORYCLIA [id number] [address] Urea nitrogen [Mass/Vol] 26 mg/dL High 9-24 [facility] Comment on above: Order Comment: Speci men Type: BLOOD SPECIMEN Performed By: #### 1 9123-9, 75154-0, 2776- ####[facility]ORYCLIA [id number] [address] CBC panel Auto (Bld)on 06-05 Erythrocyte distribution width (RBC) [Ratio] 15.9 % High 11.5-15.0 [facility] Comment on above: Order Comment: Speci men Type: BLOOD SPECIMEN Performed By: #### 5 8410-2 ####[facility]ORYCLIA [id number] [address] Hematocrit (Bld) [Volume fraction] 39.6 % Normal 39.0-51.0 [facility] Comment on above: Order Comment: Speci men Type: BLOOD SPECIMEN Performed By: #### 5 8410-2 ####[facility]ORYCLIA [id number] [address] Hemoglobin (Bld) [Mass/Vol] 12.3 g/dL Low 13.0-17.0 [facility] Comment on above: Order Comment: Speci men Type: BLOOD SPECIMEN Performed By: #### 5 8410-2 ####[facility]ORYCLIA [id number] [address] MCH (RBC) [Entitic mass] 28.1 pg Normal 26.0-34.0 [facility] Comment on above: Order Comment: Speci men Type: BLOOD SPECIMEN Performed By: #### 5 8410-2 ####[facility]ORYCLIA [id number] [address] MCHC (RBC) [Mass/Vol] 31.1 g/dL Normal 30.5-36.0 [facility] Comment on above: Order Comment: Speci men Type: BLOOD SPECIMEN Performed By: #### 5 8410-2 ####[facility]ORYCLIA [id number] [address] MCV (RBC) [Entitic vol] 90.4 fL Normal 80.0-100.0 [facility] Comment on above: Order Comment: Speci men Type: BLOOD SPECIMEN Performed By: #### 5 8410-2 ####[facility]ORYCLIA [id number] [address] Nucleated RBC (Bld) [#/Vol] 10*3/uL Normal <0.01 [facility] Comment on above: Order Comment: Speci men Type: BLOOD SPECIMEN Performed By: #### 5 8410-2 ####[facility]ORYCLIA [id number] [address] Platelet mean volume (Bld) [Entitic vol] 10.5 fL Normal 9.0-12.7 [facility] Comment on above: Order Comment: Speci men Type: BLOOD SPECIMEN Performed By: #### 5 8410-2 ####[facility]ORYCLIA [id number] [address] Platelets (Bld) [#/Vol] 224 10*3/uL Normal 150-400 [facility] Comment on above: Order Comment: Speci men Type: BLOOD SPECIMEN Performed By: #### 5 8410-2 ####[facility]ATORYCLIA [id number] [address] OF [facility] RBC (Bld) [#/Vol] 4.38 10*6/uL Normal 4.20-6.00 [facility] Comment on above: Order Comment: Speci men Type: BLOOD SPECIMEN Performed By: #### 5 8410-2 ####[facility]ORYCLIA [id number] [address] STATES OF [facility] WBC (Bld) [#/Vol] 9.66 10*3/uL Normal 3.70-11.00 [facility] Comment on above: Order Comment: Speci men Type: BLOOD SPECIMEN Performed By: #### 5 8410-2 ####[facility]ORYCLIA [id number] [address] CONSULT PROGon 06-05-2021 CONSULT PROG Normal [facility] Gas and Carbon monoxide pane l (BldV)on 06-05-2021 Base excess Calc (BldV) [Moles/Vol] 1.8 mmol/L Normal 0-2 [facility] Comment on above: Order Comment: Speci men Type: VENOUS BLOOD SPECIMEN Performed By: #### 2 4344-4 ####[facility]ATORYCLIA [id number] [address] Body temperature 100.4 [degF] Normal [facility] Comment on above: Order Comment: Speci men Type: VENOUS BLOOD SPECIMEN Performed By: #### 2 4344-4 ####[facility]ATORYCLIA [id number] [address] OF [facility] CALCIUM IONIZED, PH CORRECTED 1.21 mmol/L Normal 1.08-1.30 [facility] Comment on above: Order Comment: Speci men Type: VENOUS BLOOD SPECIMEN Performed By: #### 2 4344-4 ####[facility]ATORYCLIA [id number] [address] Calcium.ionized (BldV) [Mass/Vol] 1.19 mmol/L Normal 1.08-1.30 [facility] Comment on above: Order Comment: Speci men Type: VENOUS BLOOD SPECIMEN Performed By: #### 2 4344-4 ####[facility]ATORYCLIA [id number] [address] Carboxyhemoglobin (BldV) [Mass fraction] 1.0 % Normal 0.0-2.0 [facility] Comment on above: Order Comment: Speci men Type: VENOUS BLOOD SPECIMEN Result Comment: Carb oxyhemoglobin Reference Range for Smokers: 2.0-8.0% Performed By: #### 2 4344-4 ####[facility]ORYCLIA [id number] [address] CO2 (BldV) [Partial pressure] 41 mm[Hg] Low 42-55 [facility] Comment on above: Order Comment: Speci men Type: VENOUS BLOOD SPECIMEN Performed By: #### 2 4344-4 ####[facility]ORYCLIA [id number] [address] CO2 [Moles/Vol] 23.4 mmol/L Low 25-29 [facility] Comment on above: Order Comment: Speci men Type: VENOUS BLOOD SPECIMEN Performed By: #### 2 4344-4 ####[facility]ORYCLIA [id number] [address] CO2 adjusted to patient's actual temperature (BldV) [Partial pressure] 43 mmHg Normal 42-55 [facility] Comment on above: Order Comment: Speci men Type: VENOUS BLOOD SPECIMEN Performed By: #### 2 4344-4 ####[facility]ORYCLIA [id number] [address] STATES [facility] Glucose [Mass/Vol] 101 mg/dL Normal 60-105 [facility] Comment on above: Order Comment: Speci men Type: VENOUS BLOOD SPECIMEN Performed By: #### 2 4344-4 ####[facility]ORYCLIA [id number] [address] HCO3 (Bld) [Moles/Vol] 26.0 mmol/L Normal 24-28 [facility] Comment on above: Order Comment: Speci men Type: VENOUS BLOOD SPECIMEN Performed By: #### 2 4344-4 ####[facility]ORYCLIA [id number] [address] OF [facility] Hematocrit (Bld) [Volume fraction] 38.4 % Low 39.0-51.0 [facility] Comment on above: Order Comment: Speci men Type: VENOUS BLOOD SPECIMEN Performed By: #### 2 4344-4 ####[facility]ORYCLIA [id number] [address] OF [facility] Hemoglobin (Bld) [Mass/Vol] 12.5 g/dL Low 13.0-17.0 [facility] Comment on above: Order Comment: Speci men Type: VENOUS BLOOD SPECIMEN Performed By: #### 2 4344-4 ####[facility]ORYCLIA [id number] [address] Methemoglobin (Bld) [Mass fraction] % Normal 0.0-1.5 [facility] Comment on above: Order Comment: Speci men Type: VENOUS BLOOD SPECIMEN Performed By: #### 2 4344-4 ####[facility]ORATORYCLIA [id number] [address] OF [place] O2 THERAPY Ventilator Normal [facility] Comment on above: Order Comment: Speci men Type: VENOUS BLOOD SPECIMEN Performed By: #### 2 4344-4 ####[facility]ORYCLIA [id number] [address] Oxygen (BldV) [Partial pressure] 44 mm[Hg] Normal 35-45 [facility] Comment on above: Order Comment: Speci men Type: VENOUS BLOOD SPECIMEN Performed By: #### 2 4344-4 ####[facility]ORYCLIA [id number] [address] Oxygen adjusted to patient's actual temperature (BldV) [Partial pressure] 46.8 mmHg High 35-45 [facility] Comment on above: Order Comment: Speci men Type: VENOUS BLOOD SPECIMEN Performed By: #### 2 4344-4 ####[facility]ATORYCLIA [id number] [address] Oxygen saturation in Blood 76.5 % Normal 60-85 [facility] Comment on above: Order Comment: Speci men Type: VENOUS BLOOD SPECIMEN Performed By: #### 2 4344-4 ####[facility]ORYCLIA [id number] [address] Oxyhemoglobin (BldV) [Mass fraction] 75 % Normal 60-85 [facility] Comment on above: Order Comment: Speci men Type: VENOUS BLOOD SPECIMEN Performed By: #### 2 4344-4 ####[facility]ORYCLIA [id number] [address] OF [place] pH (BldV) 7.42 [pH] Normal 7.32-7.42 [facility] Comment on above: Order Comment: Speci men Type: VENOUS BLOOD SPECIMEN Performed By: #### 2 4344-4 ####[facility]ORYCLIA [id number] [address] pH adjusted to patient's actual temperature (BldV) 7.40 Normal 7.32-7.42 [facility] Comment on above: Order Comment: Speci men Type: VENOUS BLOOD SPECIMEN Performed By: #### 2 4344-4 ####[facility]ORYCLIA [id number] [address] OF [facility] Potassium [Moles/Vol] 3.7 mmol/L Normal 3.5-5.0 [facility] Comment on above: Order Comment: Speci men Type: VENOUS BLOOD SPECIMEN Performed By: #### 2 4344-4 ####[facility]ORYCLIA [id number] [address] [place] Sodium [Moles/Vol] 141 mmol/L Normal 136-144 [facility] Comment on above: Order Comment: Speci men Type: VENOUS BLOOD SPECIMEN Performed By: #### 2 4344-4 ####[facility]ATORYCLIA [id number] [place], [place] [address] [place] [address] [place] Magnesium SerPl-mCncon 06-05 Magnesium [Mass/Vol] 2.3 mg/dL Normal 1.7-2.3 [facility] Comment on above: Order Comment: Speci men Type: BLOOD SPECIMEN Performed By: #### 1 9123-9, 90688-9, 2777-1 ####[facility]ATORYCLIA [id number] [place] [address] [place] Phosphate SerPl-mCncon 06-05 Phosphate [Mass/Vol] 2.9 mg/dL Normal 2.7-4.8 [facility] Comment on above: Order Comment: Speci men Type: BLOOD SPECIMEN Performed By: #### 1 9123-9, 89836-5, 2777-1 ####[facility]ATORYCLIA [id number] [address] [place] Vancomycin random [Mass/Vol] on 06-05-2021 Vancomycin [Mass/Vol] 23.2 ug/mL High 10.0-20.0 [facility] Comment on above: Order Comment: Speci men Type: BLOOD SPECIMEN Result Comment: Refe rence ranges and high/low indicator flags are provided as general guidelines only. The treating physician must determine appropriate target levels/dosing based on the specific clinical situation. Performed By: #### 4 091-5 ####[facility]ATORYCLIA [id number] [place] [address] [place] (1,3)-H-I-YMFSYAmn 2 (1,3) B-D GLUCAN <31 Normal <60 [facility] Comment on above: Order Comment: Speci men Type: BLOOD SPECIMEN Performed By: #### B DGLUC ####[facility] LABCLIA [id number] [id number] [address] [place] (1,3) B-D GLUCAN, QUAL Negative Normal NEGAT [facility] Comment on above: Order Comment: Speci men Type: BLOOD SPECIMEN Result Comment: Cert ain fungi, such as the genus Cryptococcus which produces very low levels of (1,3)-rlem-E-sodxce, may not result in serum (1,3)-yxab-K-jtxgrt sufficiently elevated so as to be detected by the assay. Infections with fungi of the order Mucorales such as Absidia, Mucor and Rhizopus which are not known to produce (1,3)-jnpz-A-egodsl, are also observed to yield low serum (1,3)-sfkx-W-pktwmf titers.In addition, the yeast phase of Blastomyces dermatitidis produces little (1,3)-jpet-F-syqttn and may not be detected by the assay. Performed By: #### B DGLUC ####[facility] LABCLIA [id number] [facility] [id number] [address] [place] ALLIED HEALTHon 06-04-2021 ALLIED HEALTH Normal [facility] ALLIED HEALTH Normal [facility] ARTERIAL BLOOD GASESon 06-04 Base excess Calc (Bld) [Moles/Vol] 3 mmol/L High 0-2 [facility] Comment on above: Order Comment: Speci men Type: ARTERIAL BLOOD SPECIMEN Performed By: #### A LLBG ####[facility]ATORYCLIA [id number] [address] [place] Body temperature 98.06 [degF] Normal [facility] Comment on above: Order Comment: Speci men Type: ARTERIAL BLOOD SPECIMEN Performed By: #### A LLBG ####[facility]ATORYCLIA [id number] [address] [place] CALCIUM IONIZED, PH CORRECTED 1.19 mmol/L Normal 1.08-1.30 [facility] Comment on above: Order Comment: Speci men Type: ARTERIAL BLOOD SPECIMEN Performed By: #### A LLBG ####[facility]ATORYCLIA [id number] [place] [address] [place] Calcium.ionized (BldV) [Mass/Vol] 1.14 mmol/L Normal 1.08-1.30 [facility] Comment on above: Order Comment: Speci men Type: ARTERIAL BLOOD SPECIMEN Performed By: #### A LLBG ####[facility]ORYCLIA [id number] [address] Carboxyhemoglobin (BldA) [Mass fraction] 1.2 % Normal 0.0-2.0 [facility] Comment on above: Order Comment: Speci men Type: ARTERIAL BLOOD SPECIMEN Result Comment: Carb oxyhemoglobin Reference Range for Smokers: 2.0-8.0% Performed By: #### A LLBG ####[facility]ATORYCLIA [id number] [address] CO2 (Bld) [Partial pressure] 35 mm Hg Low 36-46 [facility] Comment on above: Order Comment: Speci men Type: ARTERIAL BLOOD SPECIMEN Performed By: #### A LLBG ####[facility]ORYCLIA [id number] [address] CO2 [Moles/Vol] 23.2 mmol/L Normal 22-28 [facility] Comment on above: Order Comment: Speci men Type: ARTERIAL BLOOD SPECIMEN Performed By: #### A LLBG ####[facility]ATORYCLIA [id number] [address] CO2 adjusted to patient's actual temperature (Bld) [Partial pressure] 34 mmHg Low 36-46 [facility] Comment on above: Order Comment: Speci men Type: ARTERIAL BLOOD SPECIMEN Performed By: #### A LLBG ####[facility]ORYCLIA [id number] [address] [place] Glucose [Mass/Vol] 115 mg/dL High 60-105 [facility] Comment on above: Order Comment: Speci men Type: ARTERIAL BLOOD SPECIMEN Performed By: #### A LLBG ####[facility]ORYCLIA [id number] [address] [place] HCO3 (Bld) [Moles/Vol] 26 mmol/L Normal 22-26 [facility] Comment on above: Order Comment: Speci men Type: ARTERIAL BLOOD SPECIMEN Performed By: #### A LLBG ####[facility]ORYCLIA [id number] [address] Hematocrit (Bld) [Volume fraction] 35.3 % Low 39.0-51.0 [facility] Comment on above: Order Comment: Speci men Type: ARTERIAL BLOOD SPECIMEN Performed By: #### A LLBG ####[facility]ORYCLIA [id number] [address] Hemoglobin (Bld) [Mass/Vol] 11.5 g/dL Low 13.0-17.0 [facility] Comment on above: Order Comment: Speci men Type: ARTERIAL BLOOD SPECIMEN Performed By: #### A LLBG ####[facility]ORYCLIA [id number] [address] Methemoglobin (Bld) [Mass fraction] % Normal 0.0-1.5 [facility] Comment on above: Order Comment: Speci men Type: ARTERIAL BLOOD SPECIMEN Performed By: #### A LLBG ####[facility]ORYCLIA [id number] [address] O2 THERAPY Ventilator Normal [facility] Comment on above: Order Comment: Speci men Type: ARTERIAL BLOOD SPECIMEN Performed By: #### A LLBG ####[facility]ORYCLIA [id number] [address] Oxygen (Bld) [Partial pressure] 66 mm Hg Low 85-95 [facility] Comment on above: Order Comment: Speci men Type: ARTERIAL BLOOD SPECIMEN Performed By: #### A LLBG ####[facility]ORYCLIA [id number] [address] Oxygen adjusted to patient's actual temperature (Bld) [Partial pressure] 64.3 mmHg Low 85-95 [facility] Comment on above: Order Comment: Speci men Type: ARTERIAL BLOOD SPECIMEN Performed By: #### A LLBG ####[facility]ORYCLIA [id number] [address] OXYGEN SATURATION, ARTERIAL 95 % Normal 95-98 [facility] Comment on above: Order Comment: Speci men Type: ARTERIAL BLOOD SPECIMEN Performed By: #### A LLBG ####[facility]ORYCLIA [id number] [address] Oxyhemoglobin (BldA) [Mass fraction] 93 % Low 95-98 [facility] Comment on above: Order Comment: Speci men Type: ARTERIAL BLOOD SPECIMEN Performed By: #### A LLBG ####[facility]ORYCLIA [id number] [address] pH (Bld) 7.49 [pH] High 7.35-7.45 [facility] Comment on above: Order Comment: Speci men Type: ARTERIAL BLOOD SPECIMEN Performed By: #### A LLBG ####[facility]ORYCLIA [id number] [address] pH adjusted to patient's actual temperature (Bld) 7.49 High 7.35-7.45 [facility] Comment on above: Order Comment: Speci men Type: ARTERIAL BLOOD SPECIMEN Performed By: #### A LLBG ####[facility]ORYCLIA [id number] [address] Potassium [Moles/Vol] 2.8 mmol/L Low 3.5-5.0 [facility] Comment on above: Order Comment: Speci men Type: ARTERIAL BLOOD SPECIMEN Performed By: #### A LLBG ####[facility]ORYCLIA [id number] [address] Bas Metab 2000 Pnl SerPlon 0 06-04-2021 Sodium [Moles/Vol] 143 mmol/L Normal 136-144 [facility] Comment on above: Order Comment: Speci men Type: BLOOD SPECIMEN Performed By: #### 2 777-1, 56794-4, 57326-4 ####[facility]ORYCLIA [id number] [address] Order Comment: Speci men Type: ARTERIAL BLOOD SPECIMEN Performed By: #### A LLBG ####[facility]ORYCLIA [id number] [address] Basic metabolic 2000 panelon 06-04-2021 Anion gap [Moles/Vol] 11 mmol/L Normal 9-18 [facility] Comment on above: Order Comment: Speci men Type: BLOOD SPECIMEN Performed By: #### 2 777-1, , ####[facility]ORYCLIA [id number] [address] OF [facility] Calcium [Mass/Vol] 8.5 mg/dL Normal 8.5-10.2 [facility] Comment on above: Order Comment: Speci men Type: BLOOD SPECIMEN Performed By: #### 2 777-1, , ####[facility]ORYCLIA [id number] [address] OF [facility] Chloride [Moles/Vol] 107 mmol/L High 97-105 [facility] Comment on above: Order Comment: Speci men Type: BLOOD SPECIMEN Performed By: #### 2 777-1, , ####[facility]ORYCLIA [id number] [address] [place] CO2 [Moles/Vol] 25 mmol/L Normal 22-30 [facility] Comment on above: Order Comment: Speci men Type: BLOOD SPECIMEN Performed By: #### 2 777-1, , ####[facility]ORYCLIA [id number] [address] [place] Creatinine [Mass/Vol] 0.77 mg/dL Normal 0.73-1.22 [facility] Comment on above: Order Comment: Speci men Type: BLOOD SPECIMEN Performed By: #### 2 777-1, , 71148-2 ####[facility]ITALIA [id number] [place] [address] [place] GFR/1.73 sq M.predicted MDRD (S/P/Bld) [Vol rate/Area] mL/min/{1.73_m2} Normal [facility] Comment on above: [...] actual GFR. Performed By: #### 2 777-1, 37476-5, 94810-1 ####[facility]ITALIA [id number] [place] [address] [place] Glucose [Mass/Vol] 107 mg/dL High 74-99 [facility] Comment on above: Order Comment: Speci men Type: BLOOD SPECIMEN Result Comment: The [employer] (ADA) provides guidance for cutoff [...] Standards of Medical Care in Diabetes 2016, [employer]. Diabetes Care. 2016.39(Suppl 1). Performed By: #### 2 777-1, 37290-4, 24584-3 ####[facility] LABORATORYIA [id number] [place] [address] [place] Potassium [Moles/Vol] 3.1 mmol/L Low 3.7-5.1 [facility] Comment on above: Order Comment: Speci men Type: BLOOD SPECIMEN Performed By: #### 2 777-1, , 70753-5 ####[facility] LABORATORYCLIA [id number] [address] Urea nitrogen [Mass/Vol] 19 mg/dL Normal 9-24 [facility] Comment on above: Order Comment: Speci men Type: BLOOD SPECIMEN Performed By: #### 2 777-1, , ####[facility]ATORYCLIA [id number] [address] CBC panel Auto (Bld)on 06-04 Erythrocyte distribution width (RBC) [Ratio] 15.8 % High 11.5-15.0 [facility] Comment on above: Order Comment: Speci men Type: BLOOD SPECIMEN Performed By: #### 5 8410-2 ####[facility]ATORYCLIA [id number] [address] Hematocrit (Bld) [Volume fraction] 36.9 % Low 39.0-51.0 [facility] Comment on above: Order Comment: Speci men Type: BLOOD SPECIMEN Performed By: #### 5 8410-2 ####[facility]ATORYCLIA [id number] [address] Hemoglobin (Bld) [Mass/Vol] 11.2 g/dL Low 13.0-17.0 [facility] Comment on above: Order Comment: Speci men Type: BLOOD SPECIMEN Performed By: #### 5 8410-2 ####[facility]ATORYCLIA [id number] [address] MCH (RBC) [Entitic mass] 27.3 pg Normal 26.0-34.0 [facility] Comment on above: Order Comment: Speci men Type: BLOOD SPECIMEN Performed By: #### 5 8410-2 ####[facility]ATORYCLIA [id number] [address] MCHC (RBC) [Mass/Vol] 30.4 g/dL Low 30.5-36.0 [facility] Comment on above: Order Comment: Speci men Type: BLOOD SPECIMEN Performed By: #### 5 8410-2 ####[facility]ATORYCLIA [id number] [address] MCV (RBC) [Entitic vol] 89.8 fL Normal 80.0-100.0 [facility] Comment on above: Order Comment: Speci men Type: BLOOD SPECIMEN Performed By: #### 5 8410-2 ####[facility]ATORYCLIA [id number] [address] Nucleated RBC (Bld) [#/Vol] 10*3/uL Normal <0.01 [facility] Comment on above: Order Comment: Speci men Type: BLOOD SPECIMEN Performed By: #### 5 8410-2 ####[facility]ATORYCLIA [id number] [address] Platelet mean volume (Bld) [Entitic vol] 10.7 fL Normal 9.0-12.7 [facility] Comment on above: Order Comment: Speci men Type: BLOOD SPECIMEN Performed By: #### 5 8410-2 ####[facility]ATORYCLIA [id number] [address] Platelets (Bld) [#/Vol] 174 10*3/uL Normal 150-400 [facility] Comment on above: Order Comment: Speci men Type: BLOOD SPECIMEN Performed By: #### 5 8410-2 ####[facility]ATORYCLIA [id number] [address] RBC (Bld) [#/Vol] 4.11 10*6/uL Low 4.20-6.00 [facility] Comment on above: Order Comment: Speci men Type: BLOOD SPECIMEN Performed By: #### 5 8410-2 ####[facility]ORATORYCLIA [id number] [place], [place] [id number] [place] [address] [place] WBC (Bld) [#/Vol] 8.29 10*3/uL Normal 3.70-11.00 [facility] Comment on above: Order Comment: Speci men Type: BLOOD SPECIMEN Performed By: #### 5 8410-2 ####[facility]ATORYCLIA [id number] [address] [place] CONSULT PROGon 06-04-2021 CONSULT PROG Normal [facility] CT BRAIN WO IVCONon 06-04-19 CT BRAIN WO IVCON Normal [facility] CT CHEST W IVCON PEon 2021 CT CHEST W IVCON PE Normal [facility] Magnesium SerPl-mCncon 06-04 Magnesium [Mass/Vol] 2.2 mg/dL Normal 1.7-2.3 [facility] Comment on above: Order Comment: Speci men Type: BLOOD SPECIMEN Performed By: #### 2 777-1, 52903-4, 70531-8 ####[facility]ATORYCLIA [id number] [address] NT-proBNP SerPl-mCncon 06-04 Natriuretic peptide.B prohormone N-Terminal [Mass/Vol] 229 pg/mL High <125 [facility] Comment on above: Order Comment: Speci men Type: BLOOD SPECIMEN Performed By: #### 3 3762-6, 4091-5 ####[facility]ATORYCLIA [id number] [address] [place] Phosphate SerPl-mCncon 06-04 Phosphate [Mass/Vol] 2.0 mg/dL Low 2.7-4.8 [facility] Comment on above: Order Comment: Speci men Type: BLOOD SPECIMEN Performed By: #### 2 777-1, 32934-8, 10140-2 ####[facility]ATORYCLIA [id number] [place] [id number] [place] Vancomycin random [Mass/Vol] on 06-04-2021 Vancomycin [Mass/Vol] 35.2 ug/mL High 10.0-20.0 [facility] Comment on above: Order Comment: Speci men Type: BLOOD SPECIMEN Result Comment: Refe rence ranges and high/low indicator flags are provided as general guidelines only. The treating physician must determine appropriate target levels/dosing based on the specific clinical situation. Performed By: #### 3 3762-6, 4091-5 ####[facility]ATORYCLIA [id number] [address] OF [facility] XR ABDOMEN 1V SUPINEon 06-04 XR ABDOMEN 1V SUPINE Normal [facility] ALLIED HEALTHon 06-03-2021 ALLIED HEALTH Normal [facility] ARTERIAL BLOOD GASESon 06-03 Base excess Calc (Bld) [Moles/Vol] 5 mmol/L High 0-2 [facility] Comment on above: Order Comment: Speci men Type: ARTERIAL BLOOD SPECIMEN Performed By: #### A LLBG ####[facility]ATORYCLIA [id number] [address] Body temperature 99.5 [degF] Normal [facility] Comment on above: Order Comment: Speci men Type: ARTERIAL BLOOD SPECIMEN Performed By: #### A LLBG ####[facility]ATORYCLIA [id number] [address] CALCIUM IONIZED, PH CORRECTED 1.18 mmol/L Normal 1.08-1.30 [facility] Comment on above: Order Comment: Speci men Type: ARTERIAL BLOOD SPECIMEN Performed By: #### A LLBG ####[facility]ORYCLIA [id number] [address] STATES [facility] Calcium.ionized (BldV) [Mass/Vol] 1.16 mmol/L Normal 1.08-1.30 [facility] Comment on above: Order Comment: Speci men Type: ARTERIAL BLOOD SPECIMEN Performed By: #### A LLBG ####[facility]ATORYCLIA [id number] [address] Carboxyhemoglobin (BldA) [Mass fraction] 1.2 % Normal 0.0-2.0 [facility] Comment on above: Order Comment: Speci men Type: ARTERIAL BLOOD SPECIMEN Result Comment: Carb oxyhemoglobin Reference Range for Smokers: 2.0-8.0% Performed By: #### A LLBG ####[facility]ORYCLIA [id number] [address] CO2 (Bld) [Partial pressure] 45 mm Hg Normal 36-46 [facility] Comment on above: Order Comment: Speci men Type: ARTERIAL BLOOD SPECIMEN Performed By: #### A LLBG ####[facility]ORYCLIA [id number] [address] CO2 [Moles/Vol] 26.9 mmol/L Normal 22-28 [facility] Comment on above: Order Comment: Speci men Type: ARTERIAL BLOOD SPECIMEN Performed By: #### A LLBG ####[facility]ORYCLIA [id number] [address] CO2 adjusted to patient's actual temperature (Bld) [Partial pressure] 47 mmHg High 36-46 [facility] Comment on above: Order Comment: Speci men Type: ARTERIAL BLOOD SPECIMEN Performed By: #### A LLBG ####[facility]ORYCLIA [id number] [address] [place] Glucose [Mass/Vol] 141 mg/dL High 60-105 [facility] Comment on above: Order Comment: Speci men Type: ARTERIAL BLOOD SPECIMEN Performed By: #### A LLBG ####[facility]ORYCLIA [id number] [address] HCO3 (Bld) [Moles/Vol] 30 mmol/L High 22-26 [facility] Comment on above: Order Comment: Speci men Type: ARTERIAL BLOOD SPECIMEN Performed By: #### A LLBG ####[facility]ORYCLIA [id number] [address] Hematocrit (Bld) [Volume fraction] 35.8 % Low 39.0-51.0 [facility] Comment on above: Order Comment: Speci men Type: ARTERIAL BLOOD SPECIMEN Performed By: #### A LLBG ####[facility]ORYCLIA [id number] [address] Hemoglobin (Bld) [Mass/Vol] 11.6 g/dL Low 13.0-17.0 [facility] Comment on above: Order Comment: Speci men Type: ARTERIAL BLOOD SPECIMEN Performed By: #### A LLBG ####[facility]ORYCLIA [id number] [address] Methemoglobin (Bld) [Mass fraction] % Normal 0.0-1.5 [facility] Comment on above: Order Comment: Speci men Type: ARTERIAL BLOOD SPECIMEN Performed By: #### A LLBG ####[facility]ORYCLIA [id number] [address] O2 THERAPY Ventilator Normal [facility] Comment on above: Order Comment: Speci men Type: ARTERIAL BLOOD SPECIMEN Performed By: #### A LLBG ####[facility]ORYCLIA [id number] [address] Oxygen (Bld) [Partial pressure] 69 mm Hg Low 85-95 [facility] Comment on above: Order Comment: Speci men Type: ARTERIAL BLOOD SPECIMEN Performed By: #### A LLBG ####[facility]CLIA [id number] [address] Oxygen adjusted to patient's actual temperature (Bld) [Partial pressure] 70.8 mmHg Low 85-95 [facility] Comment on above: Order Comment: Speci men Type: ARTERIAL BLOOD SPECIMEN Performed By: #### A LLBG ####[facility]CLIA [id number] [address] OXYGEN SATURATION, ARTERIAL 94 % Low 95-98 [facility] Comment on above: Order Comment: Speci men Type: ARTERIAL BLOOD SPECIMEN Performed By: #### A LLBG ####[facility]ORYCLIA [id number] [address] Oxyhemoglobin (BldA) [Mass fraction] 93 % Low 95-98 [facility] Comment on above: Order Comment: Speci men Type: ARTERIAL BLOOD SPECIMEN Performed By: #### A LLBG ####[facility]ORYCLIA [id number] [address] OF [facility] pH (Bld) 7.43 [pH] Normal 7.35-7.45 [facility] Comment on above: Order Comment: Speci men Type: ARTERIAL BLOOD SPECIMEN Performed By: #### A LLBG ####[facility]ORYCLIA [id number] [address] pH adjusted to patient's actual temperature (Bld) 7.43 Normal 7.35-7.45 [facility] Comment on above: Order Comment: Speci men Type: ARTERIAL BLOOD SPECIMEN Performed By: #### A LLBG ####[facility]ORYCLIA [id number] [address] Potassium [Moles/Vol] 3.1 mmol/L Low 3.5-5.0 [facility] Comment on above: Order Comment: Speci men Type: ARTERIAL BLOOD SPECIMEN Performed By: #### A LLBG ####[facility]ORYCLIA [id number] [address] OF [facility] Sodium [Moles/Vol] 145 mmol/L High 136-144 [facility] Comment on above: Order Comment: Speci men Type: ARTERIAL BLOOD SPECIMEN Performed By: #### A LLBG ####[facility]ATORYCLIA [id number] [address] ASPERGILLUS GALACTOMANNAN SE RUMon 06-03-2021 Galactomannan Ag IA Ql Negative Normal NEGAT [facility] Comment on above: Order [...] is suspected. Performed By: #### A SGALS ####[facility] LABCLIA [id number] [place] [address] OF [facility] Galactomannan Ag IA Qn <0.50 Normal [facility] Comment on above: Order Comment: Speci men Type: BLOOD SPECIMEN Result Comment: Inde x Values are Interpreted as Follows:Negative specimens <0.50Positive specimens >=0.50 Performed By: #### A SGALS ####[facility] LABCLIA [id number] [place] [address] [place] Basic metabolic 2000 panelon 06-03-2021 Anion gap [Moles/Vol] 8 mmol/L Low 9-18 [facility] Comment on above: Order Comment: Speci men Type: BLOOD SPECIMEN Performed By: #### 1 9123-9, 2777-, 94619-0 ####[facility]ATORYCLIA [id number] [place] [address] [place] Calcium [Mass/Vol] 8.0 mg/dL Low 8.5-10.2 [facility] Comment on above: Order Comment: Speci men Type: BLOOD SPECIMEN Performed By: #### 1 9123-9, 2777-1, 84927-1 ####[facility]ATORYCLIA [id number] [place] [address] [place] Chloride [Moles/Vol] 110 mmol/L High 97-105 [facility] Comment on above: Order Comment: Speci men Type: BLOOD SPECIMEN Performed By: #### 1 9123-9, 2777-1, 19406-8 ####[facility]ATORYCLIA [id number] [place] [address] [place] CO2 [Moles/Vol] 28 mmol/L Normal 22-30 [facility] Comment on above: Order Comment: Speci men Type: BLOOD SPECIMEN Performed By: #### 1 9123-9, 2777-1, 40657-4 ####[facility]ATORYCLIA [id number] [place] [id number] [place] Creatinine [Mass/Vol] 0.75 mg/dL Normal 0.73-1.22 [facility] Comment on above: Order Comment: [facility] Type: BLOOD SPECIMEN Performed By: #### 1 9123-9, 2777-, 11421-2 ####[facility]ATORYCLIA [id number] [address] [place] GFR/1.73 sq M.predicted MDRD (S/P/Bld) [Vol rate/Area] mL/min/{1.73_m2} Normal [facility] Comment on above: [...] GFR. Performed By: #### 1 9123-9, 2777-1, 15426-5 ####[facility]ATORYCLIA [id number] [address] [place] Glucose [Mass/Vol] 141 mg/dL High 74-99 [facility] Comment on above: Order Comment: Speci [facility] Type: BLOOD SPECIMEN Result Comment: The [place] [employer] (ADA) provides guidance for cutoff [...] Standards of Medical Care in Diabetes 2016, [employer]. Diabetes Care. 2016.39(Suppl 1). Performed By: #### 1 9123-9, 2777-1, 75646-6 ####[facility]ATORYCLIA [id number] [address] STATES OF [facility] Potassium [Moles/Vol] 3.3 mmol/L Low 3.7-5.1 [facility] Comment on above: Order Comment: Speci men Type: BLOOD SPECIMEN Performed By: #### 1 9123-9, 27711-04, 22214-6 ####[facility]ATORYCLIA [id number] [address] Sodium [Moles/Vol] 146 mmol/L High 136-144 [facility] Comment on above: Order Comment: Speci men Type: BLOOD SPECIMEN Performed By: #### 1 9123-9, 27711-04, 87515-3 ####[facility]ATORYCLIA [id number] [address] Urea nitrogen [Mass/Vol] 10 mg/dL Normal 9-24 [facility] Comment on above: Order Comment: Speci men Type: BLOOD SPECIMEN Performed By: #### 1 9123-9, 2777, 06710-8 ####[facility]ATORYCLIA [id number] [address] CASE MANAGEMon 06-03-2021 CASE MANAGEM Normal [facility] CBC panel Auto (Bld)on 06-03 Erythrocyte distribution width (RBC) [Ratio] 15.6 % High 11.5-15.0 [facility] Comment on above: Order Comment: Speci men Type: BLOOD SPECIMEN Performed By: #### 5 8410-2 ####[facility]ATORYCLIA [id number] [address] Hematocrit (Bld) [Volume fraction] 36.9 % Low 39.0-51.0 [facility] Comment on above: Order Comment: Speci men Type: BLOOD SPECIMEN Performed By: #### 5 8410-2 ####[facility]ATORYCLIA [id number] [address] Hemoglobin (Bld) [Mass/Vol] 11.1 g/dL Low 13.0-17.0 [facility] Comment on above: Order Comment: Speci men Type: BLOOD SPECIMEN Performed By: #### 5 8410-2 ####[facility]ATORYCLIA [id number] [address] MCH (RBC) [Entitic mass] 27.0 pg Normal 26.0-34.0 [facility] Comment on above: Order Comment: Speci men Type: BLOOD SPECIMEN Performed By: #### 5 8410-2 ####[facility]ORYCLIA [id number] [address] MCHC (RBC) [Mass/Vol] 30.1 g/dL Low 30.5-36.0 [facility] Comment on above: Order Comment: Speci men Type: BLOOD SPECIMEN Performed By: #### 5 8410-2 ####[facility]ATORYCLIA [id number] [address] MCV (RBC) [Entitic vol] 89.8 fL Normal 80.0-100.0 [facility] Comment on above: Order Comment: Speci men Type: BLOOD SPECIMEN Performed By: #### 5 8410-2 ####[facility]ORYCLIA [id number] [address] Nucleated RBC (Bld) [#/Vol] 10*3/uL Normal <0.01 [facility] Comment on above: Order Comment: Speci men Type: BLOOD SPECIMEN Performed By: #### 5 8410-2 ####[facility]ORYCLIA [id number] [address] Platelet mean volume (Bld) [Entitic vol] 10.5 fL Normal 9.0-12.7 [facility] Comment on above: Order Comment: Speci men Type: BLOOD SPECIMEN Performed By: #### 5 8410-2 ####[facility]ATORYCLIA [id number] [address] Platelets (Bld) [#/Vol] 196 10*3/uL Normal 150-400 [facility] Comment on above: Order Comment: Speci men Type: BLOOD SPECIMEN Performed By: #### 5 8410-2 ####[facility]ATORYCLIA [id number] [address] STATES OF [facility] RBC (Bld) [#/Vol] 4.11 10*6/uL Low 4.20-6.00 [facility] Comment on above: Order Comment: Speci men Type: BLOOD SPECIMEN Performed By: #### 5 8410-2 ####[facility]ORYCLIA [id number] [address] WBC (Bld) [#/Vol] 8.18 10*3/uL Normal 3.70-11.00 [facility] Comment on above: Order Comment: Speci men Type: BLOOD SPECIMEN Performed By: #### 5 8410-2 ####[facility]ATORYCLIA [id number] [address] OF [facility] CONSULTon 06-03-2021 CONSULT Normal [facility] CONSULT PROGon 06-03-2021 CONSULT PROG Normal [facility] Gas and Carbon monoxide pane l (BldV)on 06-03-2021 Base excess Calc (BldV) [Moles/Vol] 1.4 mmol/L Normal 0-2 [facility] Comment on above: Order Comment: Speci men Type: VENOUS BLOOD SPECIMEN Performed By: #### 2 4344-4 ####[facility]ATORYCLIA [id number] [address] Body temperature 98.42 [degF] Normal [facility] Comment on above: Order Comment: Speci men Type: VENOUS BLOOD SPECIMEN Performed By: #### 2 4344-4 ####[facility] [id number] [address] CALCIUM IONIZED, PH CORRECTED 1.09 mmol/L Normal 1.08-1.30 [facility] Comment on above: Order Comment: Speci men Type: VENOUS BLOOD SPECIMEN Performed By: #### 2 4344-4 ####[facility] [id number] [address] Calcium.ionized (BldV) [Mass/Vol] 1.12 mmol/L Normal 1.08-1.30 [facility] Comment on above: Order Comment: Speci men Type: VENOUS BLOOD SPECIMEN Performed By: #### 2 4344-4 ####[facility]ORY[facility]IA [id number] [address] Carboxyhemoglobin (BldV) [Mass fraction] 1.7 % Normal 0.0-2.0 [facility] Comment on above: Order Comment: Speci men Type: VENOUS BLOOD SPECIMEN Result Comment: Carb oxyhemoglobin Reference Range for Smokers: 2.0-8.0% Performed By: #### 2 4344-4 ####[facility]ORYCLIA [id number] [address] CO2 (BldV) [Partial pressure] 50 mm[Hg] Normal 42-55 [facility] Comment on above: Order Comment: Speci men Type: VENOUS BLOOD SPECIMEN Performed By: #### 2 4344-4 ####[facility]IA [id number] [address] CO2 [Moles/Vol] 24.9 mmol/L Low 25-29 [facility] Comment on above: Order Comment: Speci men Type: VENOUS BLOOD SPECIMEN Performed By: #### 2 4344-4 ####[facility] [id number] [address] CO2 adjusted to patient's actual temperature (BldV) [Partial pressure] 50 mmHg Normal 42-55 [facility] Comment on above: Order Comment: Speci men Type: VENOUS BLOOD SPECIMEN Performed By: #### 2 4344-4 ####[facility]ORYCLIA [id number] [address] [place] FIO2 30 % Normal [facility] Comment on above: Order Comment: Speci men Type: VENOUS BLOOD SPECIMEN Performed By: #### 2 4344-4 ####[facility] [id number] [address] Glucose [Mass/Vol] 191 mg/dL High 60-105 [facility] Comment on above: Order Comment: Speci men Type: VENOUS BLOOD SPECIMEN Performed By: #### 2 4344-4 ####[facility]ORYCLIA [id number] [address] [place] HCO3 (Bld) [Moles/Vol] 27.1 mmol/L Normal 24-28 [facility] Comment on above: Order Comment: Speci men Type: VENOUS BLOOD SPECIMEN Performed By: #### 2 4344-4 ####[facility]ORYCLIA [id number] [address] [place] Hematocrit (Bld) [Volume fraction] 36.2 % Low 39.0-51.0 [facility] Comment on above: Order Comment: Speci men Type: VENOUS BLOOD SPECIMEN Performed By: #### 2 4344-4 ####[facility]ORYCLIA [id number] [address] [place] Hemoglobin (Bld) [Mass/Vol] 11.8 g/dL Low 13.0-17.0 [facility] Comment on above: Order Comment: Speci men Type: VENOUS BLOOD SPECIMEN Performed By: #### 2 4344-4 ####[facility]ORYCLIA [id number] [address] INHALED TIDAL VOLUME (ML) 530 Normal [facility] Comment on above: Order Comment: Speci men Type: VENOUS BLOOD SPECIMEN Performed By: #### 2 4344-4 ####[facility]ORYCLIA [id number] [place], [place] [address] [place] [address] [place] Methemoglobin (Bld) [Mass fraction] % Normal 0.0-1.5 [facility] Comment on above: Order Comment: Speci men Type: VENOUS BLOOD SPECIMEN Performed By: #### 2 4344-4 ####[facility]ORYCLIA [id number] [place], [place] [address] [place] [address] O2 THERAPY Ventilator Normal [facility] Comment on above: Order Comment: Speci men Type: VENOUS BLOOD SPECIMEN Performed By: #### 2 4344-4 ####[facility]ORYCLIA [id number] [address] Oxygen (BldV) [Partial pressure] 69 mm[Hg] High 35-45 [facility] Comment on above: Order Comment: Speci men Type: VENOUS BLOOD SPECIMEN Performed By: #### 2 4344-4 ####[facility]ORYCLIA [id number] [address] Oxygen adjusted to patient's actual temperature (BldV) [Partial pressure] 68.8 mmHg High 35-45 [facility] Comment on above: Order Comment: Speci men Type: VENOUS BLOOD SPECIMEN Performed By: #### 2 4344-4 ####[facility]ORYCLIA [id number] [place], [place] [address] [place] [address] [place] Oxygen saturation in Blood 92.4 % High 60-85 [facility] Comment on above: Order Comment: Speci men Type: VENOUS BLOOD SPECIMEN Performed By: #### 2 4344-4 ####[facility]ORYCLIA [id number] [place], [place] [address] [place] [address] [place] Oxyhemoglobin (BldV) [Mass fraction] 90 % High 60-85 [facility] Comment on above: Order Comment: Speci men Type: VENOUS BLOOD SPECIMEN Performed By: #### 2 4344-4 ####[facility]ORYCLIA [id number] [place], [place] [address] [place] [address] [place] PEEP/CPAP 8 cmH2O Normal [facility] Comment on above: Order Comment: Speci men Type: VENOUS BLOOD SPECIMEN Performed By: #### 2 4344-4 ####[facility]ORYCLIA [id number] [address] pH (BldV) 7.35 [pH] Normal 7.32-7.42 [facility] Comment on above: Order Comment: Speci men Type: VENOUS BLOOD SPECIMEN Performed By: #### 2 4344-4 ####[facility]ORYCLIA [id number] [address] pH adjusted to patient's actual temperature (BldV) 7.35 Normal 7.32-7.42 [facility] Comment on above: Order Comment: Speci men Type: VENOUS BLOOD SPECIMEN Performed By: #### 2 4344-4 ####[facility]ORYCLIA [id number] [address] Potassium [Moles/Vol] 3.6 mmol/L Normal 3.5-5.0 [facility] Comment on above: Order Comment: Speci men Type: VENOUS BLOOD SPECIMEN Performed By: #### 2 4344-4 ####[facility]ORYCLIA [id number] [address] SET VENTILATOR RESPIRATORY RATE (BPM) 18 BPM Normal [facility] Comment on above: Order Comment: Speci men Type: VENOUS BLOOD SPECIMEN Performed By: #### 2 4344-4 ####[facility]ORYCLIA [id number] [address] Sodium [Moles/Vol] 141 mmol/L Normal 136-144 [facility] Comment on above: Order Comment: Speci men Type: VENOUS BLOOD SPECIMEN Performed By: #### 2 4344-4 ####[facility]ORYCLIA [id number] [address] HIV 1+2 Ab IA Qlon 2 HIV 1 and 2 Ab IA.rapid Nom Normal [facility] Comment on above: Order Comment: Speci men Type: BLOOD SPECIMEN Result Comment: Test not indicated. Performed By: #### 3 1201-7, TOXMG ####[facility]ORYCLIA [id number] [address] HIV 1+2 Ab+HIV1 p24 Ag IA Ql Non-Reactive Normal Nonreactive [facility] Comment on above: Order Comment: Speci men Type: BLOOD SPECIMEN Result Comment: [place] Rev. Code 3701.243(E): This information has been [...] diagnoses. Performed By: #### 3 1201-7, TOXMG ####[facility]ATORYCLIA [id number] [address] HIVINT Normal [facility] Comment on above: Order Comment: Speci men Type: BLOOD SPECIMEN Result Comment: No e vidence of HIV-1 or HIV-2 infection. Should recent infection be suspected, repeat testing may be considered 2-3 weeks after this draw. Performed By: #### 3 1201-7, TOXMG ####[facility]ORYCLIA [id number] [address] [place] Magnesium SerPl-ncon 06-03 Magnesium [Mass/Vol] 1.9 mg/dL Normal 1.7-2.3 [facility] Comment on above: Order Comment: Speci men Type: BLOOD SPECIMEN Performed By: #### 1 9123-9, 2777-1, 65232-3 ####[facility]ORYCLIA [id number] [address] OF [facility] NUTRITIONon 06-03-2021 NUTRITION Normal [facility] Phosphate SerPl-mCncon 06-03 Phosphate [Mass/Vol] 1.9 mg/dL Low 2.7-4.8 [facility] Comment on above: Order Comment: Speci men Type: BLOOD SPECIMEN Performed By: #### 1 9123-9, 2777-1, 77900-3 ####[facility]ORYCLIA [id number] [address] TOXOPLASMOSIS IGM AND IGG AB on 06-03-2021 TOXO IGG QUAL Negative Normal Negative [facility] Comment on above: Order Comment: Speci men Type: BLOOD SPECIMEN Result Comment: No s erological evidence of past exposure to Toxoplasma gondii. Cannot exclude recent infection if the specimen collected within 3-4 weeks after infection.Negative <6.4 IU/mLEquivocal 6.4-9.9 IU/mLPositive >=10.0 IU/mL Performed By: #### 3 1201-7, TOXMG ####[facility]ORYCLIA [id number] [address] TOXO IGM QUAL Negative Normal Negative [facility] Comment on above: Order Comment: Speci men Type: BLOOD SPECIMEN Result Comment: No s erological evidence of recent exposure to Toxoplasma gondii.Negative <0.9 IndexEquivocal 0.9-0.99 IndexPositive >=1.0 Index Performed By: #### 3 1201-7, TOXMG ####[facility]ORYCLIA [id number] [address] [place] US DVT LOWER BILon US DVT LOWER RAINER Normal [facility] XR CHEST 1V FRONTALon 2021 XR CHEST 1V FRONTAL Normal [facility] ARTERIAL BLOOD GASESon 06-02 Base excess Calc (Bld) [Moles/Vol] 2 mmol/L Normal 0-2 [facility] Comment on above: Order Comment: Speci men Type: ARTERIAL BLOOD SPECIMEN Performed By: #### A LLBG ####[facility]ORYCLIA [id number] [address] Body temperature 99.32 [degF] Normal [facility] Comment on above: Order Comment: Speci men Type: ARTERIAL BLOOD SPECIMEN Performed By: #### A LLBG ####[facility]ORYCLIA [id number] [address] CALCIUM IONIZED, PH CORRECTED 1.15 mmol/L Normal 1.08-1.30 [facility] Comment on above: Order Comment: Speci men Type: ARTERIAL BLOOD SPECIMEN Performed By: #### A LLBG ####[facility]CLIA [id number] [address] Calcium.ionized (BldV) [Mass/Vol] 1.13 mmol/L Normal 1.08-1.30 [facility] Comment on above: Order Comment: Speci men Type: ARTERIAL BLOOD SPECIMEN Performed By: #### A LLBG ####[facility]ORYCLIA [id number] [address] Carboxyhemoglobin (BldA) [Mass fraction] 1.4 % Normal 0.0-2.0 [facility] Comment on above: Order Comment: Speci men Type: ARTERIAL BLOOD SPECIMEN Result Comment: Carb oxyhemoglobin Reference Range for Smokers: 2.0-8.0% Performed By: #### A LLBG ####[facility]ORYCLIA [id number] [address] CO2 (Bld) [Partial pressure] 39 mm Hg Normal 36-46 [facility] Comment on above: Order Comment: Speci men Type: ARTERIAL BLOOD SPECIMEN Performed By: #### A LLBG ####[facility]CLIA [id number] [address] CO2 [Moles/Vol] 23.4 mmol/L Normal 22-28 [facility] Comment on above: Order Comment: Speci men Type: ARTERIAL BLOOD SPECIMEN Performed By: #### A LLBG ####[facility]CLIA [id number] [address] CO2 adjusted to patient's actual temperature (Bld) [Partial pressure] 40 mmHg Normal 36-46 [facility] Comment on above: Order Comment: Speci men Type: ARTERIAL BLOOD SPECIMEN Performed By: #### A LLBG ####[facility]ORYCLIA [id number] [address] OF [facility] Glucose [Mass/Vol] 156 mg/dL High 60-105 [facility] Comment on above: Order Comment: Speci men Type: ARTERIAL BLOOD SPECIMEN Performed By: #### A LLBG ####[facility]ORYCLIA [id number] [address] OF [facility] HCO3 (Bld) [Moles/Vol] 26 mmol/L Normal 22-26 [facility] Comment on above: Order Comment: Speci men Type: ARTERIAL BLOOD SPECIMEN Performed By: #### A LLBG ####[facility]ORYCLIA [id number] [address] OF [facility] Hematocrit (Bld) [Volume fraction] 33.9 % Low 39.0-51.0 [facility] Comment on above: Order Comment: Speci men Type: ARTERIAL BLOOD SPECIMEN Performed By: #### A LLBG ####[facility]CL[facility] [id number] [address] OF [facility] Hemoglobin (Bld) [Mass/Vol] 11.0 g/dL Low 13.0-17.0 [facility] Comment on above: Order Comment: Speci men Type: ARTERIAL BLOOD SPECIMEN Performed By: #### A LLBG ####[facility]CLIA [id number] [address] Methemoglobin (Bld) [Mass fraction] % Normal 0.0-1.5 [facility] Comment on above: Order Comment: Speci men Type: ARTERIAL BLOOD SPECIMEN Performed By: #### A LLBG ####[facility]CLIA [id number] [address] O2 THERAPY Ventilator Normal [facility] Comment on above: Order Comment: Speci men Type: ARTERIAL BLOOD SPECIMEN Performed By: #### A LLBG ####[facility]CLIA [id number] [address] Oxygen (Bld) [Partial pressure] 70 mm Hg Low 85-95 [facility] Comment on above: Order Comment: Speci men Type: ARTERIAL BLOOD SPECIMEN Performed By: #### A LLBG ####[facility]CLIA [id number] [address] Oxygen adjusted to patient's actual temperature (Bld) [Partial pressure] 72.2 mmHg Low 85-95 [facility] Comment on above: Order Comment: Speci men Type: ARTERIAL BLOOD SPECIMEN Performed By: #### A LLBG ####[facility]CLIA [id number] [address] OXYGEN SATURATION, ARTERIAL 96 % Normal 95-98 [facility] Comment on above: Order Comment: Speci men Type: ARTERIAL BLOOD SPECIMEN Performed By: #### A LLBG ####[facility]CLIA [id number] [address] Oxyhemoglobin (BldA) [Mass fraction] 94 % Low 95-98 [facility] Comment on above: Order Comment: Speci men Type: ARTERIAL BLOOD SPECIMEN Performed By: #### A LLBG ####[facility]CLIA [id number] [address] OF [facility] pH (Bld) 7.43 [pH] Normal 7.35-7.45 [facility] Comment on above: Order Comment: Speci men Type: ARTERIAL BLOOD SPECIMEN Performed By: #### A LLBG ####[facility]CLIA [id number] [address] pH adjusted to patient's actual temperature (Bld) 7.42 Normal 7.35-7.45 [facility] Comment on above: Order Comment: Speci men Type: ARTERIAL BLOOD SPECIMEN Performed By: #### A LLBG ####[facility]ORYCLIA [id number] [address] Potassium [Moles/Vol] 2.6 mmol/L Low 3.5-5.0 [facility] Comment on above: Order Comment: Speci men Type: ARTERIAL BLOOD SPECIMEN Performed By: #### A LLBG ####[facility]ORYCLIA [id number] [address] Sodium [Moles/Vol] 142 mmol/L Normal 136-144 [facility] Comment on above: Order Comment: Speci men Type: ARTERIAL BLOOD SPECIMEN Performed By: #### A LLBG ####[facility]ORYCLIA [id number] [address] Ammonia Plas-sCncon 06-02-19 22 Ammonia (P) [Moles/Vol] 20 umol/L Normal 16-60 [facility] Comment on above: Order Comment: Speci men Type: BLOOD SPECIMEN Performed By: #### 1 6362-6 ####[facility]ORYCLIA [id number] [address] Bacteria CSF Culton 06-02-19 22 Bacteria identified Cx Nom (CSF) CULTURE, CSF: No growth 14 days GRAM STAIN: No organisms seen Rare Polymorphonuclear leukocytes Gram stain performed on cytospun specimen. Normal [facility] Comment on above: Performed By: #### 6 06-4 ####[facility]ORYCLIA [id number] [address] Basic metabolic 2000 panelon 06-02-2021 Anion gap [Moles/Vol] 10 mmol/L Normal 9-18 [facility] Comment on above: Order Comment: Speci men Type: BLOOD SPECIMEN Performed By: #### 2 4321-2, , 2776-05 ####[facility]ORYCLIA [id number] [address] STATES [facility] Calcium [Mass/Vol] 8.1 mg/dL Low 8.5-10.2 [facility] Comment on above: Order Comment: Speci men Type: BLOOD SPECIMEN Performed By: #### 2 4321-2, , 2776-05 ####[facility]ORYCLIA [id number] [address] Chloride [Moles/Vol] 108 mmol/L High 97-105 [facility] Comment on above: Order Comment: Speci men Type: BLOOD SPECIMEN Performed By: #### 2 4321-2, , 2776-05 ####[facility]ORYCLIA [id number] [place] [address] [place] CO2 [Moles/Vol] 24 mmol/L Normal 22-30 [facility] Comment on above: Order Comment: Speci men Type: BLOOD SPECIMEN Performed By: #### 2 1-2, , 2776-05 ####[facility]ORYCLIA [id number] [address] [place] Creatinine [Mass/Vol] 0.78 mg/dL Normal 0.73-1.22 [facility] Comment on above: Order Comment: Speci men Type: BLOOD SPECIMEN Performed By: #### 2 4321-2, , 2776-05 ####[facility]ORYCLIA [id number] [address] [place] GFR/1.73 sq M.predicted MDRD (S/P/Bld) [Vol rate/Area] mL/min/{1.73_m2} Normal [facility] Comment on above: [...] Performed By: #### 2 4321-2, , 2776-05 ####[facility]ORYCLIA [id number] [address] [place] Glucose [Mass/Vol] 162 mg/dL High 74-99 [facility] Comment on above: Order Comment: Speci men Type: BLOOD SPECIMEN Result Comment: The [place] [employer] (ADA) provides guidance for cutoff [...] Standards of Medical Care in Diabetes 2016, [place] [employer]. Diabetes Care. 2016.39(Suppl 1). Performed By: #### 2 1-2, , 2776-05 ####[facility]ORYCLIA [id number] [address] STATES OF [facility] Potassium [Moles/Vol] 2.7 mmol/L Low 3.7-5.1 [facility] Comment on above: Order Comment: Speci men Type: BLOOD SPECIMEN Performed By: #### 2 1-2, , 2776-05 ####[facility]ORYCLIA [id number] [address] STATES [facility] Sodium [Moles/Vol] 142 mmol/L Normal 136-144 [facility] Comment on above: Order Comment: Speci men Type: BLOOD SPECIMEN Performed By: #### 2 1-2, , 2776-05 ####[facility]ORYCLIA [id number] [address] [place] Urea nitrogen [Mass/Vol] 12 mg/dL Normal 9-24 [facility] Comment on above: Order Comment: Speci men Type: BLOOD SPECIMEN Performed By: #### 2 1-2, , 2776-05 ####[facility]ORYCLIA [id number] [address] OF [facility] CBC panel Auto (Bld)on 06-02 Erythrocyte distribution width (RBC) [Ratio] 15.0 % Normal 11.5-15.0 [facility] Comment on above: Order Comment: Speci men Type: BLOOD SPECIMEN Performed By: #### 5 8410-2 ####[facility]ORYCLIA [id number] [address] Hematocrit (Bld) [Volume fraction] 34.3 % Low 39.0-51.0 [facility] Comment on above: Order Comment: Speci men Type: BLOOD SPECIMEN Performed By: #### 5 8410-2 ####[facility]ORYCLIA [id number] [address] Hemoglobin (Bld) [Mass/Vol] 10.3 g/dL Low 13.0-17.0 [facility] Comment on above: Order Comment: Speci men Type: BLOOD SPECIMEN Performed By: #### 5 8410-2 ####[facility]ORYCLIA [id number] [address] MCH (RBC) [Entitic mass] 27.0 pg Normal 26.0-34.0 [facility] Comment on above: Order Comment: Speci men Type: BLOOD SPECIMEN Performed By: #### 5 8410-2 ####[facility]ORYCLIA [id number] [address] MCHC (RBC) [Mass/Vol] 30.0 g/dL Low 30.5-36.0 [facility] Comment on above: Order Comment: Speci men Type: BLOOD SPECIMEN Performed By: #### 5 8410-2 ####[facility]ORYCLIA [id number] [address] MCV (RBC) [Entitic vol] 90.0 fL Normal 80.0-100.0 [facility] Comment on above: Order Comment: Speci men Type: BLOOD SPECIMEN Performed By: #### 5 8410-2 ####[facility]ORYCLIA [id number] [address] Nucleated RBC (Bld) [#/Vol] 10*3/uL Normal <0.01 [facility] Comment on above: Order Comment: Speci men Type: BLOOD SPECIMEN Performed By: #### 5 8410-2 ####[facility]ORYCLIA [id number] [address] Platelet mean volume (Bld) [Entitic vol] 10.2 fL Normal 9.0-12.7 [facility] Comment on above: Order Comment: Speci men Type: BLOOD SPECIMEN Performed By: #### 5 8410-2 ####[facility]ORYCLIA [id number] [address] Platelets (Bld) [#/Vol] 194 10*3/uL Normal 150-400 [facility] Comment on above: Order Comment: Speci men Type: BLOOD SPECIMEN Performed By: #### 5 8410-2 ####[facility]ORYCLIA [id number] [address] RBC (Bld) [#/Vol] 3.81 10*6/uL Low 4.20-6.00 [facility] Comment on above: Order Comment: Speci men Type: BLOOD SPECIMEN Performed By: #### 5 8410-2 ####[facility]ORYCLIA [id number] [address] WBC (Bld) [#/Vol] 9.22 10*3/uL Normal 3.70-11.00 [facility] Comment on above: Order Comment: Speci men Type: BLOOD SPECIMEN Performed By: #### 5 8410-2 ####[facility]ORYCLIA [id number] [address] CONSULT PROGon 06-02-2021 CONSULT PROG Normal [facility] CSF MANUAL DIFFon 06-02-2021 DIF TTL, CSF 25 cells counted Normal [facility] Comment on above: Order Comment: Speci men Type: CEREBROSPINAL FLUID Performed By: #### 3 4563-7, [id number], [id number] ####[facility]ORYCLIA [id number] [place], [place] [address] [place] [address] [place] LYMPH%, CSF 4 % Low 50-90 [facility] Comment on above: Order Comment: Speci men Type: CEREBROSPINAL FLUID Performed By: #### 3 4563-7, [id number], [id number] ####[facility]ORYCLIA [id number] [address] [place] MACRO%, CSF 4 % High <1 [facility] Comment on above: Order Comment: Speci men Type: CEREBROSPINAL FLUID Performed By: #### 3 4563-7, [id number], [id number] ####[facility]ORYCLIA [id number] [address] [place] MONO%, CSF 20 % Normal 10-50 [facility] Comment on above: Order Comment: Speci men Type: CEREBROSPINAL FLUID Performed By: #### 3 4563-7, [id number], [id number] ####[facility]ORYCLIA [id number] [address] [place] NEUT%, CSF 72 % High 0-3 [facility] Comment on above: Order Comment: Speci men Type: CEREBROSPINAL FLUID Performed By: #### 3 4563-7, [id number], [id number] ####[facility]ORYCLIA [id number] [address] CSF PATHOLOGIST INTERP (LAB REFLEX ORDER-NO BILL)on 06-02-2021 CSF STAFF REVIEW Negative [facility] Comment on above: Order Comment: Speci men Type: CEREBROSPINAL FLUID Performed By: #### 3 4563-7, [id number], [id number] ####[facility]ORYCLIA [id number] [address] Pathologist name Reviewed by Amador Stevens MD [facility] Comment on above: Order Comment: Speci men Type: CEREBROSPINAL FLUID Performed By: #### 3 4563-7, [id number], [id number] ####[facility]ORYCLIA [id number] [address] Cell count panel (CSF)on Clarity (CSF) Clear Normal Clear [facility] Comment on above: Order Comment: Speci men Type: CEREBROSPINAL FLUID Performed By: #### 3 4563-7, [id number], [id number] ####[facility]ORYCLIA [id number] [place], [place] [address] [place] [address] Clarity (Unsp spec) Not Indicated Normal Clear [facility] Comment on above: Order Comment: Speci men Type: CEREBROSPINAL FLUID Performed By: #### 3 4563-7, [id number], [id number] ####[facility]ORYCLIA [id number] [address] Color (CSF) Colorless Normal Colorless [facility] Comment on above: Order Comment: Speci men Type: CEREBROSPINAL FLUID Performed By: #### 3 4563-7, [id number], [id number] ####[facility]IA [id number] [address] Color (Spun CSF) Not Indicated Normal Colorless [facility] Comment on above: Order Comment: Speci men Type: CEREBROSPINAL FLUID Performed By: #### 3 4563-7, [id number], [id number] ####[facility]ORYCLIA [id number] [address] CSF TUBE NUMBER Sterile Container Normal [facility] Comment on above: Order Comment: Speci men Type: CEREBROSPINAL FLUID Performed By: #### 3 4563-7, [id number], [id number] ####[facility]ORYCLIA [id number] [address] RBC Manual cnt (CSF) [#/Vol] 117 cells/uL High 0-5 [facility] Comment on above: Order Comment: Speci men Type: CEREBROSPINAL FLUID Performed By: #### 3 4563-7, [id number], [id number] ####[facility] [id number] [address] [place] WBC Manual cnt (CSF) [#/Vol] 1 cells/uL Normal 0-5 [facility] Comment on above: Order Comment: Speci men Type: CEREBROSPINAL FLUID Performed By: #### 3 4563-7, [id number], [id number] ####[facility]ORYCLIA [id number] [address] [place] Glucose CSF-mCncon 2 Glucose (CSF) [Mass/Vol] 82 mg/dL High 40-70 [facility] Comment on above: Order Comment: Speci men Type: CEREBROSPINAL FLUID Result Comment: Lumb ar CSF glucose values of healthy patients are approximately 60% of the plasma values and must always be compared with a concurrently measured plasma value for adequate clinical interpretation.References: 1. Glucose HK (GLUC3) [package insert V 12.0 [place]]. [employer], [place], [place]. September 2015. 2. Michelle Moore, Loki H. (2015). Chapter 7: Glucose and Lactate. Marianela Alcocer al.(eds.), Cerebrospinal Fluid in Clinical Neurology. Pepin: [employer]. Performed By: #### 2 342-4 ####[facility]ORYCLIA [id number] [address] HEPATIC FUNCTION PNLon 06-02 Albumin [Mass/Vol] 3.2 g/dL Low 3.9-4.9 [facility] Comment on above: Order Comment: Speci men Type: BLOOD SPECIMEN Performed By: #### H FP, 15775-3 ####[facility]ORYCLIA [id number] [address] ALP [Catalytic activity/Vol] 67 U/L Normal 38-113 [facility] Comment on above: Order Comment: Speci men Type: BLOOD SPECIMEN Performed By: #### H FP, 80211-6 ####[facility]ORYCLIA [id number] [address] OF [facility] ALT With P-5'-P [Catalytic activity/Vol] 16 U/L Normal 10-54 [facility] Comment on above: Order Comment: Speci men Type: BLOOD SPECIMEN Performed By: #### [place], [address]72-5 ####[facility]ORYCLIA [id number] [address] AST With P-5'-P [Catalytic activity/Vol] 25 U/L Normal 14-40 [facility] Comment on above: Order Comment: Speci men Type: BLOOD SPECIMEN Performed By: #### [place], [address]-7 ####[facility]ORYCLIA [id number] [address] Bilirubin [Mass/Vol] 0.2 mg/dL Normal 0.2-1.3 [facility] Comment on above: Order Comment: Speci men Type: BLOOD SPECIMEN Performed By: #### [place] KATHIE, 45383-6 ####[facility]ORYCLIA [id number] [address] Bilirubin.conjugated [Mass/Vol] mg/dL Normal <0.2 [facility] Comment on above: Order Comment: Speci men Type: BLOOD SPECIMEN Performed By: #### [place] KATHIE, 16643-7 ####[facility]CLIA [id number] [address] Protein [Mass/Vol] 5.8 g/dL Low 6.3-8.0 [facility] Comment on above: Order Comment: Speci men Type: BLOOD SPECIMEN Performed By: #### [place] KATHIE, 26839-2 ####[facility]CLIA [id number] [address] MRI BRAIN WO/W IVCONon 06-02 MRI BRAIN WO/W IVCON Normal [facility] Magnesium SerPl-mCncon 06-02 Magnesium [Mass/Vol] 2.0 mg/dL Normal 1.7-2.3 [facility] Comment on above: Order Comment: Speci men Type: BLOOD SPECIMEN Performed By: #### 2 4321-2, 11714-1, 2777-1 ####[facility]ORYCLIA [id number] [address] NT-proBNP SerPl-mCncon 06-02 Natriuretic peptide.B prohormone N-Terminal [Mass/Vol] 296 pg/mL High <125 [facility] Comment on above: Order Comment: Speci men Type: BLOOD SPECIMEN Performed By: #### H FP, 89112-3 ####[facility]ORYCLIA [id number] [address] POTASSIUM BLDon 06-02-2021 Potassium [Moles/Vol] 3.2 mmol/L Low 3.7-5.1 [facility] Comment on above: Order Comment: Speci men Type: BLOOD SPECIMEN Performed By: #### K 1 ####[facility]ORYCLIA [id number] [address] Phosphate SerPl-ncon 06-02 Phosphate [Mass/Vol] 2.1 mg/dL Low 2.7-4.8 [facility] Comment on above: Order Comment: Speci men Type: BLOOD SPECIMEN Performed By: #### 2 4321-2, 48603-4, 2777-1 ####[facility]ORYCLIA [id number] [address] Vancomycin random [Mass/Vol] on 06-02-2021 Vancomycin [Mass/Vol] 18.8 ug/mL Normal 10.0-20.0 [facility] Comment on above: Order Comment: Speci men Type: BLOOD SPECIMEN Result Comment: Refe rence ranges and high/low indicator flags are provided as general guidelines only. The treating physician must determine appropriate target levels/dosing based on the specific clinical situation. Performed By: #### 4 091-5 ####[facility]ORYCLIA [id number] [address] OF [place] ALLIED HEALTHon 06-01-2021 ALLIED HEALTH Normal [facility] ALLIED HEALTH Normal [facility] ALLIED HEALTH Normal [facility] ARTERIAL BLOOD GASESon 06-01 Base excess Calc (Bld) [Moles/Vol] 1 mmol/L Normal 0-2 [facility] Comment on above: Order Comment: Speci men Type: ARTERIAL BLOOD SPECIMEN Performed By: #### A LLBG ####[facility]ORYCLIA [id number] [address] Body temperature 97.52 [degF] Normal [facility] Comment on above: Order Comment: Speci men Type: ARTERIAL BLOOD SPECIMEN Performed By: #### A LLBG ####[facility]CLIA [id number] [address] CALCIUM IONIZED, PH CORRECTED 1.13 mmol/L Normal 1.08-1.30 [facility] Comment on above: Order Comment: Speci men Type: ARTERIAL BLOOD SPECIMEN Performed By: #### A LLBG ####[facility]ORYCLIA [id number] [address] Calcium.ionized (BldV) [Mass/Vol] 1.12 mmol/L Normal 1.08-1.30 [facility] Comment on above: Order Comment: Speci men Type: ARTERIAL BLOOD SPECIMEN Performed By: #### A LLBG ####[facility]ORYCLIA [id number] [address] Carboxyhemoglobin (BldA) [Mass fraction] 1.6 % Normal 0.0-2.0 [facility] Comment on above: Order Comment: Speci men Type: ARTERIAL BLOOD SPECIMEN Result Comment: Carb oxyhemoglobin Reference Range for Smokers: 2.0-8.0% Performed By: #### A LLBG ####[facility]ORYCLIA [id number] [address] CO2 (Bld) [Partial pressure] 41 mm Hg Normal 36-46 [facility] Comment on above: Order Comment: Speci men Type: ARTERIAL BLOOD SPECIMEN Performed By: #### A LLBG ####[facility]ORYCLIA [id number] [address] CO2 [Moles/Vol] 23.0 mmol/L Normal 22-28 [facility] Comment on above: Order Comment: Speci men Type: ARTERIAL BLOOD SPECIMEN Performed By: #### A LLBG ####[facility]ORYCLIA [id number] [address] CO2 adjusted to patient's actual temperature (Bld) [Partial pressure] 40 mmHg Normal 36-46 [facility] Comment on above: Order Comment: Speci men Type: ARTERIAL BLOOD SPECIMEN Performed By: #### A LLBG ####[facility]ORYCLIA [id number] [address] FIO2 40 % Normal [facility] Comment on above: Order Comment: Speci men Type: ARTERIAL BLOOD SPECIMEN Performed By: #### A LLBG ####[facility]CLIA [id number] [address] Glucose [Mass/Vol] 127 mg/dL High 60-105 [facility] Comment on above: Order Comment: Speci men Type: ARTERIAL BLOOD SPECIMEN Performed By: #### A LLBG ####[facility]CLIA [id number] [address] HCO3 (Bld) [Moles/Vol] 25 mmol/L Normal 22-26 [facility] Comment on above: Order Comment: Speci men Type: ARTERIAL BLOOD SPECIMEN Performed By: #### A LLBG ####[facility]CLIA [id number] [address] Hematocrit (Bld) [Volume fraction] 33.7 % Low 39.0-51.0 [facility] Comment on above: Order Comment: Speci men Type: ARTERIAL BLOOD SPECIMEN Performed By: #### A LLBG ####[facility]CLIA [id number] [address] Hemoglobin (Bld) [Mass/Vol] 10.9 g/dL Low 13.0-17.0 [facility] Comment on above: Order Comment: Speci men Type: ARTERIAL BLOOD SPECIMEN Performed By: #### A LLBG ####[facility]ORYCLIA [id number] [address] OF [place] INHALED TIDAL VOLUME (ML) 500 Normal [facility] Comment on above: Order Comment: Speci men Type: ARTERIAL BLOOD SPECIMEN Performed By: #### A LLBG ####[facility]ORYCLIA [id number] [address] INVASIVE VENTILATOR MODE PRVC=Pressure Regulated Volume Control Normal [facility] Comment on above: Order Comment: Speci men Type: ARTERIAL BLOOD SPECIMEN Performed By: #### A LLBG ####[facility]ORYCLIA [id number] [address] Methemoglobin (Bld) [Mass fraction] % Normal 0.0-1.5 [facility] Comment on above: Order Comment: Speci men Type: ARTERIAL BLOOD SPECIMEN Performed By: #### A LLBG ####[facility]ORYCLIA [id number] [address] O2 THERAPY Ventilator Normal [facility] Comment on above: Order Comment: Speci men Type: ARTERIAL BLOOD SPECIMEN Performed By: #### A LLBG ####[facility]ORYCLIA [id number] [address] OF [place] Oxygen (Bld) [Partial pressure] 64 mm Hg Low 85-95 [facility] Comment on above: Order Comment: Speci men Type: ARTERIAL BLOOD SPECIMEN Performed By: #### A LLBG ####[facility]ORYCLIA [id number] [address] OF [place] Oxygen adjusted to patient's actual temperature (Bld) [Partial pressure] 61.8 mmHg Low 85-95 [facility] Comment on above: Order Comment: Speci men Type: ARTERIAL BLOOD SPECIMEN Performed By: #### A LLBG ####[facility]ORYCLIA [id number] [address] OF [place] OXYGEN SATURATION, ARTERIAL 94 % Low 95-98 [facility] Comment on above: Order Comment: Speci men Type: ARTERIAL BLOOD SPECIMEN Performed By: #### A LLBG ####[facility]ORYCLIA [id number] [address] Oxyhemoglobin (BldA) [Mass fraction] 92 % Low 95-98 [facility] Comment on above: Order Comment: Speci men Type: ARTERIAL BLOOD SPECIMEN Performed By: #### A LLBG ####[facility]ORYCLIA [id number] [address] PEEP/CPAP 5 cmH2O Normal [facility] Comment on above: Order Comment: Speci men Type: ARTERIAL BLOOD SPECIMEN Performed By: #### A LLBG ####[facility]ORYCLIA [id number] [address] pH (Bld) 7.40 [pH] Normal 7.35-7.45 [facility] Comment on above: Order Comment: Speci men Type: ARTERIAL BLOOD SPECIMEN Performed By: #### A LLBG ####[facility]CL[facility] [id number] [address] pH adjusted to patient's actual temperature (Bld) 7.41 Normal 7.35-7.45 [facility] Comment on above: Order Comment: Speci men Type: ARTERIAL BLOOD SPECIMEN Performed By: #### A LLBG ####[facility]CLIA [id number] [address] Potassium [Moles/Vol] 3.1 mmol/L Low 3.5-5.0 [facility] Comment on above: Order Comment: Speci men Type: ARTERIAL BLOOD SPECIMEN Performed By: #### A LLBG ####[facility]ORYCLIA [id number] [address] SET VENTILATOR RESPIRATORY RATE (BPM) 18 BPM Normal [facility] Comment on above: Order Comment: Speci men Type: ARTERIAL BLOOD SPECIMEN Performed By: #### A LLBG ####[facility]ORYCLIA [id number] [address] Sodium [Moles/Vol] 141 mmol/L Normal 136-144 [facility] Comment on above: Order Comment: Speci men Type: ARTERIAL BLOOD SPECIMEN Performed By: #### A LLBG ####[facility]ORYCLIA [id number] [address] BASE DEFICIT, ARTERIAL -1.0 mmol/L Normal -2-0 [facility] Comment on above: Order Comment: Speci men Type: ARTERIAL BLOOD SPECIMEN Performed By: #### A LLBG ####[facility]CLIA [id number] [address] Body temperature 98.24 [degF] Normal [facility] Comment on above: Order Comment: Speci men Type: ARTERIAL BLOOD SPECIMEN Performed By: #### A LLBG ####[facility]ORYCLIA [id number] [address] CALCIUM IONIZED, PH CORRECTED 1.08 mmol/L Normal 1.08-1.30 [facility] Comment on above: Order Comment: Speci men Type: ARTERIAL BLOOD SPECIMEN Performed By: #### A LLBG ####[facility]ORYCLIA [id number] [address] Calcium.ionized (BldV) [Mass/Vol] 1.15 mmol/L Normal 1.08-1.30 [facility] Comment on above: Order Comment: Speci men Type: ARTERIAL BLOOD SPECIMEN Performed By: #### A LLBG ####[facility]CLIA [id number] [address] Carboxyhemoglobin (BldA) [Mass fraction] 1.4 % Normal 0.0-2.0 [facility] Comment on above: Order Comment: Speci men Type: ARTERIAL BLOOD SPECIMEN Result Comment: Carb oxyhemoglobin Reference Range for Smokers: 2.0-8.0% Performed By: #### A LLBG ####[facility]ORYCLIA [id number] [address] CO2 (Bld) [Partial pressure] 59 mm Hg High 36-46 [facility] Comment on above: Order Comment: Speci men Type: ARTERIAL BLOOD SPECIMEN Performed By: #### A LLBG ####[facility]CLIA [id number] [address] CO2 [Moles/Vol] 24.5 mmol/L Normal 22-28 [facility] Comment on above: Order Comment: Speci men Type: ARTERIAL BLOOD SPECIMEN Performed By: #### A LLBG ####[facility]CLIA [id number] [address] CO2 adjusted to patient's actual temperature (Bld) [Partial pressure] 58 mmHg High 36-46 [facility] Comment on above: Order Comment: Speci men Type: ARTERIAL BLOOD SPECIMEN Performed By: #### A LLBG ####[facility]ORYCLIA [id number] [address] FIO2 40 % Normal [facility] Comment on above: Order Comment: Speci men Type: ARTERIAL BLOOD SPECIMEN Performed By: #### A LLBG ####[facility]CLIA [id number] [address] Glucose [Mass/Vol] 128 mg/dL High 60-105 [facility] Comment on above: Order Comment: Speci men Type: ARTERIAL BLOOD SPECIMEN Performed By: #### A LLBG ####[facility]ORYCLIA [id number] [address] [place] HCO3 (Bld) [Moles/Vol] 26 mmol/L Normal 22-26 [facility] Comment on above: Order Comment: Speci men Type: ARTERIAL BLOOD SPECIMEN Performed By: #### A LLBG ####[facility]CLIA [id number] [address] Hematocrit (Bld) [Volume fraction] 35.6 % Low 39.0-51.0 [facility] Comment on above: Order Comment: Speci men Type: ARTERIAL BLOOD SPECIMEN Performed By: #### A LLBG ####[facility]CLIA [id number] [address] OF [place] Hemoglobin (Bld) [Mass/Vol] 11.5 g/dL Low 13.0-17.0 [facility] Comment on above: Order Comment: Speci men Type: ARTERIAL BLOOD SPECIMEN Performed By: #### A LLBG ####[facility]CLIA [id number] [address] INHALED TIDAL VOLUME (ML) 500 Normal [facility] Comment on above: Order Comment: Speci men Type: ARTERIAL BLOOD SPECIMEN Performed By: #### A LLBG ####[facility]CLIA [id number] [address] INVASIVE VENTILATOR MODE PRVC=Pressure Regulated Volume Control [facility] Comment on above: Order Comment: Speci men Type: ARTERIAL BLOOD SPECIMEN Performed By: #### A LLBG ####[facility]CLIA [id number] [address] Methemoglobin (Bld) [Mass fraction] % Normal 0.0-1.5 [facility] Comment on above: Order Comment: Speci men Type: ARTERIAL BLOOD SPECIMEN Performed By: #### A LLBG ####[facility]CLIA [id number] [address] OF [place] O2 THERAPY Ventilator Normal [facility] Comment on above: Order Comment: Speci men Type: ARTERIAL BLOOD SPECIMEN Performed By: #### A LLBG ####[facility]ORYCLIA [id number] [address] OF [place] Oxygen (Bld) [Partial pressure] 88 mm Hg Normal 85-95 [facility] Comment on above: Order Comment: Speci men Type: ARTERIAL BLOOD SPECIMEN Performed By: #### A LLBG ####[facility]ORYCLIA [id number] [address] OF [place] Oxygen adjusted to patient's actual temperature (Bld) [Partial pressure] 86.5 mmHg Normal 85-95 [facility] Comment on above: Order Comment: Speci men Type: ARTERIAL BLOOD SPECIMEN Performed By: #### A LLBG ####[facility]CLIA [id number] [address] OXYGEN SATURATION, ARTERIAL 95 % Normal 95-98 [facility] Comment on above: Order Comment: Speci men Type: ARTERIAL BLOOD SPECIMEN Performed By: #### A LLBG ####[facility]CLIA [id number] [address] Oxyhemoglobin (BldA) [Mass fraction] 93 % Low 95-98 [facility] Comment on above: Order Comment: Speci men Type: ARTERIAL BLOOD SPECIMEN Performed By: #### A LLBG ####[facility]CLIA [id number] [address] PEEP/CPAP 5 cmH2O Normal [facility] Comment on above: Order Comment: Speci men Type: ARTERIAL BLOOD SPECIMEN Performed By: #### A LLBG ####[facility]CLIA [id number] [address] OF [facility] pH (Bld) 7.27 [pH] Low 7.35-7.45 [facility] Comment on above: Order Comment: Speci men Type: ARTERIAL BLOOD SPECIMEN Performed By: #### A LLBG ####[facility]CLIA [id number] [address] pH adjusted to patient's actual temperature (Bld) 7.28 Low 7.35-7.45 [facility] Comment on above: Order Comment: Speci men Type: ARTERIAL BLOOD SPECIMEN Performed By: #### A LLBG ####[facility]CLIA [id number] [address] Potassium [Moles/Vol] 3.3 mmol/L Low 3.5-5.0 [facility] Comment on above: Order Comment: Speci men Type: ARTERIAL BLOOD SPECIMEN Performed By: #### A LLBG ####[facility]ORYCLIA [id number] SET VENTILATOR RESPIRATORY RATE (BPM) 14 BPM Normal [facility] Comment on above: Order Comment: Speci men Type: ARTERIAL BLOOD SPECIMEN Performed By: #### A LLBG ####[facility]ORYCLIA [id number] [address] Sodium [Moles/Vol] 141 mmol/L Normal 136-144 [facility] Comment on above: Order Comment: Speci men Type: ARTERIAL BLOOD SPECIMEN Performed By: #### A LLBG ####[facility]ORYCLIA [id number] [address] Bacteria CSF Culton 06-01-19 22 Bacteria identified Cx Nom (CSF) CULTURE, CSF: No growth 14 days GRAM STAIN: No organisms seen Rare Polymorphonuclear leukocytes Moderate Red Blood Cells Gram stain performed on cytospun specimen. Normal [facility] Comment on above: Performed By: #### 6 06-4 ####[facility]ORYCLIA [id number] [address] Bacteria Spec Resp Culton Bacteria identified Respiratory culture Nom (Unsp spec) CULTURE, RESPIRATORY: No growth 2 days GRAM STAIN: No organisms seen No Polymorphonuclear Leukocytes Normal [facility] Comment on above: Performed By: #### 3 2355-0 ####[facility]ORYCLIA [id number] [address] OF [facility] Basic metabolic 2000 panelon 06-01-2021 Anion gap [Moles/Vol] 8 mmol/L Low 9-18 [facility] Comment on above: Order Comment: Speci men Type: BLOOD SPECIMEN Performed By: #### 2 4321-2, , 2776-05 ####[facility]ORYCLIA [id number] [address] Calcium [Mass/Vol] 7.8 mg/dL Low 8.5-10.2 [facility] Comment on above: Order Comment: Speci men Type: BLOOD SPECIMEN Performed By: #### 2 4321-2, , 2776-05 ####[facility]ORYCLIA [id number] [place] [address] [place] Chloride [Moles/Vol] 109 mmol/L High 97-105 [facility] Comment on above: Order Comment: Speci men Type: BLOOD SPECIMEN Performed By: #### 2 4321-2, , 2776-05 ####[facility]ORYCLIA [id number] [place] [id number] [place] CO2 [Moles/Vol] 26 mmol/L Normal 22-30 [facility] Comment on above: Order Comment: Speci men Type: BLOOD SPECIMEN Performed By: #### 2 1-2, , 2776-05 ####[facility]ORYCLIA [id number] [address] [place] Creatinine [Mass/Vol] 0.82 mg/dL Normal 0.73-1.22 [facility] Comment on above: Order Comment: Speci men Type: BLOOD SPECIMEN Performed By: #### 2 4321-2, , 2776-05 ####[facility]ORYCLIA [id number] [place] [address] [place] GFR/1.73 sq M.predicted MDRD (S/P/Bld) [Vol rate/Area] mL/min/{1.73_m2} Normal [facility] Comment on above: [...] Performed By: #### 2 4321-2, , 2776-05 ####[facility] [id number] [place] [address] [place] Glucose [Mass/Vol] 105 mg/dL High 74-99 [facility] Comment on above: Order Comment: Speci men Type: BLOOD SPECIMEN Result Comment: The [employer] (ADA) provides guidance for cutoff [...] Standards of Medical Care in Diabetes 2016, [employer]. Diabetes Care. 2016.39(Suppl 1). Performed By: #### 2 1-2, , 2776-05 ####[facility]ORYCLIA [id number] [address] [place] Potassium [Moles/Vol] 3.8 mmol/L Normal 3.7-5.1 [facility] Comment on above: Order Comment: Speci men Type: BLOOD SPECIMEN Performed By: #### 2 4320-2, , 2776-05 ####[facility]ORYCLIA [id number] [address] [place] Sodium [Moles/Vol] 143 mmol/L Normal 136-144 [facility] Comment on above: Order Comment: Speci men Type: BLOOD SPECIMEN Performed By: #### 2 1-2, , 2776-05 ####[facility]ORYCLIA [id number] [address] [place] Urea nitrogen [Mass/Vol] 15 mg/dL Normal 9-24 [facility] Comment on above: Order Comment: Speci men Type: BLOOD SPECIMEN Performed By: #### 2 1-2, , 2776-05 ####[facility]ORYCLIA [id number] [address] CBC panel Auto (Bld)on 06-01 Erythrocyte distribution width (RBC) [Ratio] 15.4 % High 11.5-15.0 [facility] Comment on above: Order Comment: Speci men Type: BLOOD SPECIMEN Performed By: #### 5 8410-2 ####[facility]ORYCLIA [id number] [address] Hematocrit (Bld) [Volume fraction] 38.4 % Low 39.0-51.0 [facility] Comment on above: Order Comment: Speci men Type: BLOOD SPECIMEN Performed By: #### 5 8410-2 ####[facility]ORYCLIA [id number] [address] Hemoglobin (Bld) [Mass/Vol] 11.1 g/dL Low 13.0-17.0 [facility] Comment on above: Order Comment: Speci men Type: BLOOD SPECIMEN Performed By: #### 5 8410-2 ####[facility]ORYCLIA [id number] [address] MCH (RBC) [Entitic mass] 26.9 pg Normal 26.0-34.0 [facility] Comment on above: Order Comment: Speci men Type: BLOOD SPECIMEN Performed By: #### 5 8410-2 ####[facility]ORYCLIA [id number] [address] MCHC (RBC) [Mass/Vol] 28.9 g/dL Low 30.5-36.0 [facility] Comment on above: Order Comment: Speci men Type: BLOOD SPECIMEN Performed By: #### 5 8410-2 ####[facility]ORYCLIA [id number] [address] MCV (RBC) [Entitic vol] 93.2 fL Normal 80.0-100.0 [facility] Comment on above: Order Comment: Speci men Type: BLOOD SPECIMEN Performed By: #### 5 8410-2 ####[facility]ORYCLIA [id number] [address] Nucleated RBC (Bld) [#/Vol] 10*3/uL Normal <0.01 [facility] Comment on above: Order Comment: Speci men Type: BLOOD SPECIMEN Performed By: #### 5 8410-2 ####[facility]ORYCLIA [id number] [address] Platelet mean volume (Bld) [Entitic vol] 10.2 fL Normal 9.0-12.7 [facility] Comment on above: Order Comment: Speci men Type: BLOOD SPECIMEN Performed By: #### 5 8410-2 ####[facility]ORYCLIA [id number] [address] Platelets (Bld) [#/Vol] 231 10*3/uL Normal 150-400 [facility] Comment on above: Order Comment: Speci men Type: BLOOD SPECIMEN Performed By: #### 5 8410-2 ####[facility]ORYCLIA [id number] [address] RBC (Bld) [#/Vol] 4.12 10*6/uL Low 4.20-6.00 [facility] Comment on above: Order Comment: Speci men Type: BLOOD SPECIMEN Performed By: #### 5 8410-2 ####[facility]ORYCLIA [id number] [address] WBC (Bld) [#/Vol] 10.99 10*3/uL Normal 3.70-11.00 [facility] Comment on above: Order Comment: Speci men Type: BLOOD SPECIMEN Performed By: #### 5 8410-2 ####[facility]ORYCLIA [id number] [address] CONSULT PROGon 06-01-2021 CONSULT PROG Normal [facility] CSF MANUAL DIFFon 06-01-2021 DIF TTL, CSF 100 cells counted Normal [facility] Comment on above: Order Comment: Speci men Type: CEREBROSPINAL FLUID Performed By: #### 3 4563-7, [id number] ####[facility] [id number] [address] LYMPH%, CSF 11 % Low 50-90 [facility] Comment on above: Order Comment: Speci men Type: CEREBROSPINAL FLUID Performed By: #### 3 4563-7, [id number] ####[facility]CLIA [id number] [address] OF [facility] MONO%, CSF 10 % Normal 10-50 [facility] Comment on above: Order Comment: Speci men Type: CEREBROSPINAL FLUID Performed By: #### 3 4563-7, [id number] ####[facility]CL[facility] [id number] [address] NEUT%, CSF 79 % High 0-3 [facility] Comment on above: Order Comment: Speci men Type: CEREBROSPINAL FLUID Performed By: #### 3 4563-7, [id number] ####[facility] [id number] [address] BRAIN WO IVCONon 06-01-19 CT BRAIN WO IVCON Normal [facility] Cell count panel (CSF)on Clarity (CSF) Clear Normal Clear [facility] Comment on above: Order Comment: Speci men Type: CEREBROSPINAL FLUID Performed By: #### 3 4563-7, [id number] ####[facility] [id number] [address] Clarity (Unsp spec) Not Indicated Normal Clear [facility] Comment on above: Order Comment: Speci men Type: CEREBROSPINAL FLUID Performed By: #### 3 4563-7, [id number] ####[facility] [id number] [address] Color (CSF) Colorless Normal Colorless [facility] Comment on above: Order Comment: Speci men Type: CEREBROSPINAL FLUID Performed By: #### 3 4563-7, [id number] ####[facility]ORYCLIA [id number] [address] Color (Spun CSF) Not Indicated Normal Colorless [facility] Comment on above: Order Comment: Speci men Type: CEREBROSPINAL FLUID Performed By: #### 3 4563-7, [id number] ####[facility]ORYCLIA [id number] [address] CSF TUBE NUMBER Sterile Container Normal [facility] Comment on above: Order Comment: Speci men Type: CEREBROSPINAL FLUID Performed By: #### 3 4563-7, [id number] ####[facility]ORYCLIA [id number] [address] RBC Manual cnt (CSF) [#/Vol] 171 cells/uL High 0-5 [facility] Comment on above: Order Comment: Speci men Type: CEREBROSPINAL FLUID Performed By: #### 3 4563-7, [id number] ####[facility]ORYCLIA [id number] [address] WBC Manual cnt (CSF) [#/Vol] 5 cells/uL Normal 0-5 [facility] Comment on above: Order Comment: Speci men Type: CEREBROSPINAL FLUID Performed By: #### 3 4563-7, [id number] ####[facility]ORYCLIA [id number] [address] [place] FUNGAL CULTUREon 06-01-2021 FUNGAL CULTURE CULTURE, FUNGAL: No Fungus isolated after 28 days Normal [facility] Comment on above: Performed By: #### F CUL ####[facility]ORYCLIA [id number] [address] OF [facility] Glucose CSF-mCncon Glucose (CSF) [Mass/Vol] 78 mg/dL High 40-70 [facility] Comment on above: Order Comment: Speci men Type: CEREBROSPINAL FLUID Result Comment: Lumb ar CSF glucose values of healthy patients are approximately 60% of the plasma values and must always be compared with a concurrently measured plasma value for adequate clinical interpretation.References: 1. Glucose HK (GLUC3) [package insert V 12.0 [place]an]. [employer] [facility], [place], [place]. September 2015. 2. Michelle Moore, Michelle Manjarrez (2015). Chapter 7: Glucose and Lactate. Marianela Rothman.(eds.), Cerebrospinal Fluid in Clinical Neurology. Pepin: Crossfader. Performed By: #### 2 342-4, 2880-3 ####[facility]ORYCLIA [id number] [address] [place] HERPES SIMPLEX CSFon 022 HERPES SIMPLEX CSF HSV PCR SPEC SOURCE: Cerebrospinal Fluid HSV-1: Negative for Herpes Simplex Virus Type 1 by PCR HSV-2: Negative for Herpes Simplex Virus Type 2 by PCR Normal [facility] Comment on above: Performed By: #### [facility] ####[facility]FER[facility] LABCLIA [id number] [id number] [address] [place] Lactate (Bld) [Moles/Vol]on 06-01-2021 Lactate [Moles/Vol] 0.5 mmol/L Normal 0.5-2.2 [facility] Comment on above: Order Comment: Speci men Type: BLOOD SPECIMEN Performed By: #### 3 2693-4 ####[facility]CLIA [id number] [place] [id number] [facility] MENINGITIS ENCEPHALITIS BIOF IREon 06-01-2021 MENINGITIS ENCEPHALITIS BIOFIRE Negative Normal [facility] Comment on above: Order Comment: Speci men Type: CEREBROSPINAL FLUID Performed By: #### M GEBF ####[facility] CENTERIA [id number] [address] Magnesium SerPl-mCncon 06-01 Magnesium [Mass/Vol] 2.2 mg/dL Normal 1.7-2.3 [facility] Comment on above: Order Comment: Speci men Type: BLOOD SPECIMEN Performed By: #### 2 4321-2, 72040-8, 2777-1 ####[facility]ATORYCLIA [id number] [address] [place] Microorganism Spec Culton Microorganism identified Cx Nom (Unsp spec) CULTURE, AFB: No Acid Fast Bacilli isolated after 42 days AFB STAIN: No acid fast bacilli seen by flurochrome stain Normal [facility] Comment on above: Performed By: #### 1 1475-1 ####[facility]ORYCLIA [id number] [address] PROCALCITONIN (LAB)on 2021 Procalcitonin [Mass/Vol] 0.08 ng/mL Normal <0.09 [facility] Comment on above: Order Comment: Speci men Type: BLOOD SPECIMEN Result Comment: For a guided interpretation of test results, please visit the [facility] in Procalcitonin Calculator, [email or web address]. Performed By: #### P ROCAL ####[facility]ATORYCLIA [id number] [address] [place] Phosphate SerPl-ncon 06-01 Phosphate [Mass/Vol] 3.5 mg/dL Normal 2.7-4.8 [facility] Comment on above: Order Comment: Speci men Type: BLOOD SPECIMEN Performed By: #### 2 4321-2, 54802-7, 2777-1 ####[facility]ORYCLIA [id number] [address] [place] Prot CSF-mCncon 06-01-2021 Protein (CSF) [Mass/Vol] 52 mg/dL High 15-45 [facility] Comment on above: Order Comment: Speci men Type: CEREBROSPINAL FLUID Performed By: #### 2 342-4, 2880-3 ####[facility]ORYCLIA [id number] [address] [place] Vancomycin random [Mass/Vol] on 06-01-2021 Vancomycin [Mass/Vol] 14.6 ug/mL Normal 10.0-20.0 [facility] Comment on above: Order Comment: Speci men Type: BLOOD SPECIMEN Result Comment: Refe rence ranges and high/low indicator flags are provided as general guidelines only. The treating physician must determine appropriate target levels/dosing based on the specific clinical situation. Performed By: #### 4 091-5 ####[facility]ORYCLIA [id number] [address] [place] XR CHEST 1V FRONTALon 2021 XR CHEST 1V FRONTAL Normal [facility] XR CHEST 1V FRONTAL Normal [facility] XR NECK SOFT TISSUE 2V AP/LA Ton 06-01-2021 XR NECK SOFT TISSUE 2V AP/LAT Normal [facility] XR SKULL 2V AP/LATon 022 XR SKULL 2V AP/LAT Normal [facility] ALLIED HEALTHon 05-31-2021 ALLIED HEALTH HNO ID: [id number] Author: Christina Lynne RT(R) Service: Radiology Author Type: Technologist Type: Allied Health Filed: 05/31/2021 5:48 PM Note Text: MRI tomorrow per RN. Normal [facility] ALLIED HEALTH Normal [facility] ALLIED HEALTH Normal [facility] ALLIED HEALTH Normal [facility] ANES POSTPROC EVALon 022 ANES POSTPROC EVAL Normal [facility] ANES PRE-OPon 05-31-2021 ANES PRE-OP Normal [facility] BRIEF OP NOTon 05-31-2021 BRIEF OP NOT Normal [facility] Bacteria Bld Culton 05-31-19 22 Bacteria identified Cx Nom (Bld) CULTURE, BLOOD: No growth 5 days Normal [facility] Comment on above: Performed By: #### 6 00-7 ####[facility]ORYCLIA [id number] [address] Bacteria CSF Culton 05-31-19 22 Bacteria identified Cx Nom (CSF) CULTURE, CSF: No growth 14 days GRAM STAIN: No organisms seen Rare Polymorphonuclear leukocytes Rare Red Blood Cells Gram stain performed on cytospun specimen. Normal [facility] Comment on above: Performed By: #### 6 06-4 ####[facility]ORYCLIA [id number] [place] [address] [place] Basic metabolic 2000 panelon 05-31-2021 Anion gap [Moles/Vol] 9 mmol/L Normal 9-18 [facility] Comment on above: Order Comment: Speci men Type: BLOOD SPECIMEN Performed By: #### 2 777-1, 26167-9, ####[facility]ORYCLIA [id number] [place] [address] [place] Calcium [Mass/Vol] 8.2 mg/dL Low 8.5-10.2 [facility] Comment on above: Order Comment: Speci men Type: BLOOD SPECIMEN Performed By: #### 2 777-1, , ####[facility]ORYCLIA [id number] [address] [place] Chloride [Moles/Vol] 110 mmol/L High 97-105 [facility] Comment on above: Order Comment: Speci men Type: BLOOD SPECIMEN Performed By: #### 2 777-1, , ####[facility]ORYCLIA [id number] [address] [place] CO2 [Moles/Vol] 27 mmol/L Normal 22-30 [facility] Comment on above: Order Comment: Speci men Type: BLOOD SPECIMEN Performed By: #### 2 777-1, , ####[facility]ORYCLIA [id number] [address] [place] Creatinine [Mass/Vol] 0.85 mg/dL Normal 0.73-1.22 [facility] Comment on above: Order Comment: Speci men Type: BLOOD SPECIMEN Performed By: #### 2 777-1, , ####[facility]ORYCLIA [id number] [place] [address] [place] GFR/1.73 sq M.predicted MDRD (S/P/Bld) [Vol rate/Area] mL/min/{1.73_m2} Normal [facility] Comment on above: [...] actual GFR. Performed By: #### 2 777-1, 98278-6, ####[facility]CLIA [id number] [place] [address] [place] Glucose [Mass/Vol] 111 mg/dL High 74-99 [facility] Comment on above: Order Comment: Speci men Type: BLOOD SPECIMEN Result Comment: The [employer] Diabetes Association (ADA) provides guidance for cutoff [...] Standards of Medical Care in Diabetes 2016, [employer]. Diabetes Care. 2016.39(Suppl 1). Performed By: #### 2 777-1, 27982-9, ####[facility]ORYCLIA [id number] [place] [address] [place] Potassium [Moles/Vol] 3.7 mmol/L Normal 3.7-5.1 [facility] Comment on above: Order Comment: Speci [facility] Type: BLOOD SPECIMEN Performed By: #### 2 777-1, 46461-3, ####[facility]ORYCLIA [id number] [place], [place] [address] [place] [address] STATES OF [facility] Sodium [Moles/Vol] 146 mmol/L High 136-144 [facility] Comment on above: Order Comment: Speci men Type: BLOOD SPECIMEN Performed By: #### 2 777-1, 86213-7, ####[facility]ORYCLIA [id number] [address] STATES [facility] Urea nitrogen [Mass/Vol] 16 mg/dL Normal 9- [facility] Comment on above: Order Comment: Speci men Type: BLOOD SPECIMEN Performed By: #### 2 777-1, , ####[facility]ORYCLIA [id number] [address] OF [facility] CASE MGT INIT ASSESon 2021 CASE MGT INIT ASSES Normal [facility] CBC W Auto Differential pane l (Bld)on 05-31-2021 Basophils (Bld) [#/Vol] 0.04 10*3/uL Normal <0.11 [facility] Comment on above: Order Comment: Speci men Type: BLOOD SPECIMEN Performed By: #### 5 7021-8 ####[facility]ORYCLIA [id number] [address] [place] Basophils/100 WBC (Bld) 0.5 % Normal [facility] Comment on above: Order Comment: Speci men Type: BLOOD SPECIMEN Performed By: #### 5 7021-8 ####[facility]CLIA [id number] [address] STATES [facility] Differential cell count method Nom (Bld) Auto Normal [facility] Comment on above: Order Comment: Speci men Type: BLOOD SPECIMEN Performed By: #### 5 7021-8 ####[facility]ORYCLIA [id number] [place] [address] [place] Eosinophils (Bld) [#/Vol] 0.27 10*3/uL Normal <0.46 [facility] Comment on above: Order Comment: Speci men Type: BLOOD SPECIMEN Performed By: #### 5 7021-8 ####[facility] LABORATORYCLIA [id number] [address] Eosinophils/100 WBC (Bld) 3.3 % Normal [facility] Comment on above: Order Comment: Speci men Type: BLOOD SPECIMEN Performed By: #### 5 7021-8 ####[facility]CLIA [id number] [address] Erythrocyte distribution width (RBC) [Ratio] 15.4 % High 11.5-15.0 [facility] Comment on above: Order Comment: Speci men Type: BLOOD SPECIMEN Performed By: #### 5 7021-8 ####[facility]ORATORYCLIA [id number] [address] Hematocrit (Bld) [Volume fraction] 37.9 % Low 39.0-51.0 [facility] Comment on above: Order Comment: Speci men Type: BLOOD SPECIMEN Performed By: #### 5 7021-8 ####[facility]ORYCLIA [id number] [address] Hemoglobin (Bld) [Mass/Vol] 11.5 g/dL Low 13.0-17.0 [facility] Comment on above: Order Comment: Speci men Type: BLOOD SPECIMEN Performed By: #### 5 7021-8 ####[facility]ORATORYCLIA [id number] [address] IMMATURE GRAN % 0.4 % Normal [facility] Comment on above: Order Comment: Speci men Type: BLOOD SPECIMEN Performed By: #### 5 7021-8 ####[facility]CLIA [id number] [address] IMMATURE GRAN ABS 0.03 k/uL Normal <0.10 [facility] Comment on above: Order Comment: Speci men Type: BLOOD SPECIMEN Performed By: #### 5 7021-8 ####[facility]ORYCLIA [id number] [address] Lymphocytes (Bld) [#/Vol] 1.90 10*3/uL Normal 1.00-4.00 [facility] Comment on above: Order Comment: Speci men Type: BLOOD SPECIMEN Performed By: #### 5 7021-8 ####[facility]ORYCLIA [id number] [address] Lymphocytes/100 WBC (Bld) 23.0 % Normal [facility] Comment on above: Order Comment: Speci men Type: BLOOD SPECIMEN Performed By: #### 5 7021-8 ####[facility]ORYCLIA [id number] [address] MCH (RBC) [Entitic mass] 28.0 pg Normal 26.0-34.0 [facility] Comment on above: Order Comment: Speci men Type: BLOOD SPECIMEN Performed By: #### 5 7021-8 ####[facility]ORYCLIA [id number] [address] MCHC (RBC) [Mass/Vol] 30.3 g/dL Low 30.5-36.0 [facility] Comment on above: Order Comment: Speci men Type: BLOOD SPECIMEN Performed By: #### 5 7021-8 ####[facility]ORYCLIA [id number] [address] MCV (RBC) [Entitic vol] 92.4 fL Normal 80.0-100.0 [facility] Comment on above: Order Comment: Speci men Type: BLOOD SPECIMEN Performed By: #### 5 7021-8 ####[facility]ORYCLIA [id number] [address] Monocytes (Bld) [#/Vol] 0.60 10*3/uL Normal <0.87 [facility] Comment on above: Order Comment: Speci men Type: BLOOD SPECIMEN Performed By: #### 5 7021-8 ####[facility]ORYCLIA [id number] [address] Monocytes/100 WBC (Bld) 7.3 % Normal [facility] Comment on above: Order Comment: Speci men Type: BLOOD SPECIMEN Performed By: #### 5 7021-8 ####[facility]CLIA [id number] [address] Neutrophils (Bld) [#/Vol] 5.41 10*3/uL Normal 1.45-7.50 [facility] Comment on above: Order Comment: Speci men Type: BLOOD SPECIMEN Performed By: #### 5 7021-8 ####[facility]ORYCLIA [id number] [address] Neutrophils/100 WBC (Bld) 65.5 % Normal [facility] Comment on above: Order Comment: Speci men Type: BLOOD SPECIMEN Performed By: #### 5 7021-8 ####[facility]ORYCLIA [id number] [address] Nucleated RBC (Bld) [#/Vol] 10*3/uL Normal <0.01 [facility] Comment on above: Order Comment: Speci men Type: BLOOD SPECIMEN Performed By: #### 5 7021-8 ####[facility]CLIA [id number] [address] Nucleated RBC/100 WBC (Bld) [Ratio] 0.0 /100 WBC Normal 0.0 [facility] Comment on above: Order Comment: Speci men Type: BLOOD SPECIMEN Performed By: #### 5 7021-8 ####[facility]ORYCLIA [id number] [address] Platelet mean volume (Bld) [Entitic vol] 9.8 fL Normal 9.0-12.7 [facility] Comment on above: Order Comment: Speci men Type: BLOOD SPECIMEN Performed By: #### 5 7021-8 ####[facility]ORYCLIA [id number] [address] OF [facility] Platelets (Bld) [#/Vol] 251 10*3/uL Normal 150-400 [facility] Comment on above: Order Comment: Speci men Type: BLOOD SPECIMEN Performed By: #### 5 7021-8 ####[facility]ORYCLIA [id number] [address] OF [facility] RBC (Bld) [#/Vol] 4.10 10*6/uL Low 4.20-6.00 [facility] Comment on above: Order Comment: Speci men Type: BLOOD SPECIMEN Performed By: #### 5 7021-8 ####[facility]ORYCLIA [id number] [address] WBC (Bld) [#/Vol] 8.25 10*3/uL Normal 3.70-11.00 [facility] Comment on above: Order Comment: Speci men Type: BLOOD SPECIMEN Performed By: #### 5 7021-8 ####[facility]ORYCLIA [id number] [address] OF [facility] CONSULTon 05-31-2021 CONSULT Normal [facility] CONSULT Normal [facility] CONSULT Normal [facility] CT BRAIN WO IVCONon 05-31-[address] BRAIN WO IVCON Normal [facility] CT BRAIN WO IVCON Normal [facility] CT CHEST WO IVCONon 05-31-19 CT CHEST WO IVCON Normal [facility] Cortis SerPl-mCncon 05-31-19 22 Cortisol [Mass/Vol] 31.0 ug/dL High AM: 5.3-22.5, PM: 3.4-16.8 [facility] Comment on above: Order Comment: Speci men Type: BLOOD SPECIMEN Result Comment: Prov ided reference range is from 6-10 AM sample collection time.Cortisol Reference Range: 6-10 AM = 4.8-19.5 ug/dL, 4-8 PM = 2.5-11.9 ug/dL Performed By: #### 2 143-6, 3016-3 ####[facility]ATORYCLIA [id number] [address] [place] Cryptoc Ag Spec Ql LAon 05-08 Cryptococcus sp Ag [place] Ql (Unsp spec) Negative Normal [facility] Comment on above: Performed By: #### 4 3228-6 ####[facility]ATORYCLIA [id number] [address] [place] HISTORY PHYSICALon 2 HISTORY PHYSICAL Normal [facility] Magnesium SerPl-mCncon 05-31 Magnesium [Mass/Vol] 2.2 mg/dL Normal 1.7-2.3 [facility] Comment on above: Order Comment: Speci men Type: BLOOD SPECIMEN Performed By: #### 2 777-1, 29415-2, ####[facility]ATORYCLIA [id number] [address] [place] NURSING PROGon 05-31-2021 NURSING PROG Normal [facility] NUTRITIONon 05-31-2021 NUTRITION Normal [facility] OPERATIVE NOon 05-31-2021 OPERATIVE NO Normal [facility] Phosphate SerPl-mCncon 05-31 Phosphate [Mass/Vol] 3.3 mg/dL Normal 2.7-4.8 [facility] Comment on above: Order Comment: Speci men Type: BLOOD SPECIMEN Performed By: #### 2 777-1, 92874-7, ####[facility]ATORYCLIA [id number] [address] STAPH AUREUS PCRon 2 S. aureus and MRSA panel MEGAN+probe (Nose) Normal Negative [facility] Comment on above: Order Comment: Speci men Type: SWAB OF INTERNAL NOSE Result Comment: Nega tive for Staphylococcus aureus by PCR.Negative for MRSA by PCR Performed By: #### S APCR ####[facility]ATORYCLIA [id number] [address] [place] TSH SerPl-aCncon 05-31-2021 TSH Qn 0.829 m[IU]/L Normal 0.270-4.200 [facility] Comment on above: Order Comment: Speci men Type: BLOOD SPECIMEN Performed By: #### 2 143-6, 3016-3 ####[facility]ATORYCLIA [id number] [place] [address] [place] XR CHEST 1V FRONTALon 2021 XR CHEST 1V FRONTAL Normal [facility] XR CHEST 1V FRONTAL Normal [facility] Blood Cultureon 05-30-2021 Bacteria identified Cx Nom (Bld) Culture Result - No growth 5 days Normal [facility] Comment on above: Performed By: #### C AD #### [facility] [address] [place] [address] Bacteria identified Cx Nom (Bld) Sp. Request/Comment: - 8.2MLS Culture Result - No growth 5 days Normal [facility] Comment on above: Performed By: #### C AD #### [facility] [address] [place], [place] [address] [place] [address] C-Reactive Proteinon 022 C-Reactive Protein 1.7 mg/dL High <0.9 [facility] Comment on above: Performed By: #### C RP ####[facility] [address] [place], [place] [id number] CNDSon 05-30-2021 CNDS HNO ID: [id number] Author: Columba Carroll PA-C Service: Hospital Medicine Author Type: Physician Flooring Professional Type: Discharge Summary Filed: 05/30/2021 12:49 PM Note Text: ----- Attestation signed by Ayaka Menjivar MD at 06/01/2021 12:53 PM Attending Note I have personally reviewed the PA/PLANT PRODUCTION MANAGER note. Agree with above assessment and plan. [...] Team: Attending Provider: Ayaka Menjivar MD Physician Flooring Professional: Columba Carroll PA-C Consulting: Lilo Mendoza MD [...] consulted. Neurology suggested empiric abx coverage for 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 Rocephin and Vancomycin was started. Tele-neuro also suggested an MRI brain be obtained prior to LP to check BRAKE REPAIR MECHANIC shunt and decrease risk of herniation in neurosurgery capable facility. Transfer to [facility] requested. Sepsis lactate was 1.3. ABG showed pO2 67.8, placed patient on 2L NC.Follow B1, B12, and RPR pending. Transitions of Care Critical Issues: - patient transferred for [facility] for management of possible 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 and herniation. LABS AND PROCEDURES PENDING [...] q 1 (more content not included)... Normal [facility] CONSULTon 05-30-2021 CONSULT HNO ID: [id number] Author: Juan Carlos Mckenzie MD Service: Infectious [...] vertebrae with counting from the craniocervical junction. Chlorinator: PSCB Transcribe Date/Time: May 29 2021 8:59P Dictated by : CARLOS YOUNGER MD This examination was interpreted and the report reviewed and electronically signed by: CARLOS YOUNGER MD on May 29 2021 9:14PM EST ? CT CERVICAL SPINE WO (more content not included)... Normal [facility] CONSULT HNO ID: [id number] Author: Lilo Mendoza MD Service: Neurology General Author Type: Physician Type: Consults Filed: 05/30/2021 10:56 AM Note Text: [facility] TeleNeurology Consult Note Patient seen using Teleneurology Services. Recommendations are placed in the chart. Please review. For questions after hours, when teleneurologist is not available, for [place]: Please Page [phone] for the [facility] Neurology Group from 12pm to 8Am Admitting Provider/Consulted by:Hermes Roca MD Time of Note:05/30/2021 Patient Name:Andrew Sifuentes Admit Date:05/29/2021 Hospital Day:0 CC: altered mental status History of Present Illness: Andrew Sifuentes is a 71 year old unknown handed male with limited information about past medical history including venous insufficiency s/p EVLT, hydrocepalus s/p BRAKE REPAIR MECHANIC shunt in 1987 with multiple revisions and [...] Right Lef (more content not included)... Normal [facility] CONSULT PROGon 05-30-2021 CONSULT PROG [facility] CONSULT PROG HNO ID: [id number] Author: Shannon Gutierres [facility] Service: Pharmacy Author Type: Pharmacist Type: Consult Progress Note Filed: 05/30/2021 2:35 PM Note Text: PHARMACY VANCOMYCIN DOSING NOTE Patient Name: Andrew Sifuentes Admission Date: 05/29/2021 Date of Consult: 05/30/2021 Time of Consult: 2:32 PM Indication: possible 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 Goal Range: 15-20 mcg/mL RECOMMENDATIONS/PLAN: Pharmacy [...] any questions, please contact inpatient pharmacy at [phone]. Age: [age] year old Allergies: ALLERGIES Allergen [...] thou/cmm Vancomycin Levels: No results found for: YANDELGHULAM Chaudharivanessa Gutierres, [facility] Normal [facility] Creatinineon 05-30-2021 Creatinine [Mass/Vol] 0.86 mg/dL Normal 0.73-1.22 [facility] Comment on above: Performed By: #### C RET1 ####[facility] [address] [place] [phone] eGFR- Amer. >60 Normal [facility] Comment on above: Performed By: #### C RET1 ####[facility] [address] [place] [phone] eGFR-All Other Races >60 Normal [facility] Comment on above: Result Comment: eGFR [...] at [email or web address]. Performed By: #### C RET1 ####[facility] [address] [place] [phone] Crypto Antigen Deton 022 Crypto Antigen Det Sp. Request/Comment: - SST Test Result - Duplicate request Account Credited [facility] Comment on above: Performed By: #### C AD #### [facility] [address] [place] [address] [facility] [address] [place], [place] [id number] Crypto Antigen Det Sp. Request/Comment: - SST Test Result - Cryptococcal antigen detection result: Negative By latex agglutination [facility] Comment on above: Performed By: #### C AD #### [facility] [address] [place] [address] [facility] [address] [place], [place] [id number] ED NOTEon 05-30-2021 ED NOTE HNO ID: [id number] Author: Aletha Lopez RN Service: ? Author Type: Registered Nurse Type: ED Notes Filed: 05/29/2021 11:16 PM Note Text: Patient changed for incontinent urine, labs redrawn and sent. Patient aware of plan to be admitted and agrees with plan [facility] HISTORY PHYSICALon HISTORY PHYSICAL Normal [facility] HISTORY PHYSICAL HNO ID: [id number] Author: Hermes Roca MD Service: Hospital Medicine Author Type: Physician Type: HANDP Filed: 05/30/2021 1:03 AM Note Text: DEPARTMENT OF HOSPITAL MEDICINE HISTORY AND PHYSICAL EXAM SERVICE DATE: 05/29/2021 SERVICE TIME: 11:18 PM Primary Care Physician: Mateus Burris MD NIGHT AND WEEKEND COVERAGE: Please page [phone] until 7:30am this morning. After 7:30am please check the treatment team banner and page the appropriate service. 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 Normal [facility] Magnesium SerPl-mCncon 05-30 Magnesium [Mass/Vol] 2.5 mg/dL High 1.7-2.3 [facility] Comment on above: Order Comment: Speci men Type: BLOOD SPECIMEN Performed By: #### 1 9123-9, 2777-1 ####[facility] [id number] [place] [address] [place] NURSING PROGon 05-30-2021 NURSING PROG HNO ID: [id number] Author: Precious Cervantes RN Service: ? Author Type: Registered Nurse Type: Nursing Progress Note Filed: 05/30/2021 11:26 AM Note Text: Nursing Progress Note Patient Name: Andrew Sifuentes Patient [facility]: [id number] Daily Note: 0700- Report received from operation shift supervisor RN, patient resting in bed at this time, call light within reach, bed low and locked. Asked the patient to state his name because operation shift supervisor RN was unable to complete his admission r/t mentation. Sister Triny stated that the patient is normally AANDOx3 at baseline. I had to sternal rubbed the patient in order to get him to respond. Stated his name was Don and went back to sleep. 924- Attempted [...] This note was completed by: Precious Cervantes [facility] NURSING PROG HNO ID: [id number] Author: Lyubov Day RN Service: ? Author Type: Registered Nurse Type: Nursing Progress Note Filed: 05/30/2021 1:27 AM Note Text: Nursing Progress Note Patient Name: Andrew Sifuentes Patient Location: [id number] 0100: Patient is unresponsive to questions. Patient [...] This note was completed by: Lyubov Day [facility] Phosphate SerPl-mCncon 05-30 Phosphate [Mass/Vol] 3.5 mg/dL Normal 2.7-4.8 [facility] Comment on above: Order Comment: Speci men Type: BLOOD SPECIMEN Performed By: #### 1 9123-9, 2777-1 ####[facility] [id number] [address] [place] Sepsis Lactateon 05-30-2021 Sepsis Lactate 1.5 mmol/L Normal 0.5-2.0 [facility] Comment on above: Performed By: #### S LACT ####[facility] [address] [place] [phone] Syphilis Ttl w/Reflxon 05-30 Syphilis Interp Cannot exclude recen t Treponemal infection if specimen collected within 7 to 10 days after appearance of suspect lesions or 2 to 3 weeks after an exposure. Clinical correlation is required. Normal [facility] Comment on above: Performed By: #### S Jennifer RUCKERB ####[facility] [address] [place], [place] [phone] Syphilis Screen Rslt Non-Reactive Normal Non Reactive [facility] Comment on above: Performed By: #### S YPKYLAH B1WB ####[facility] [address] [place], [place] [phone] THERAPY NTon 05-30-2021 THERAPY NT HNO ID: [id number] Author: Bette Jimenez OTR/L Service: Occupational Therapy Author Type: Occupational Therapist Type: Therapy (PT/OT/Speech/Resp) Filed: 05/30/2021 10:29 AM Note Text: OCCUPATIONAL THERAPY MISSED VISIT SERVICE DATE: 05/30/2021 SERVICE TIME: 1017 to 1019 ROOM: [place] [address] Attempted Evaluation. Patient not seen due to Not following commands. Per nursing patient was seen by neuro and they are talking about having him transferred to [facility] secondary to shunt concerns. Will re attempt in the event patient continues to be admitted at [place] and is able to participate. SIGNATURE: Bette Jimenez OTR/L PATIENT NAME: Andrew Sifuentes DATE: May 30, 2021 TIME: 10:21 AM Normal [facility] THERAPY NT HNO ID: [id number] Author: Bette Velasquez PT Service: Physical Therapy Author Type: Physical Therapist Type: Therapy (PT/OT/Speech/Resp) Filed: 05/30/2021 8:42 AM Note Text: PHYSICAL THERAPY MISSED VISIT SERVICE DATE: 05/30/2021 SERVICE TIME: 0840 to 0840 ROOM: [place] [address] Attempted Evaluation. Patient not seen due to (pt difficult to awake per RN, very lethargic). Will re-attempt when schedule permits. SIGNATURE: Bette Velasquez PT PATIENT NAME: Andrew Sifuentes DATE: May 30, 2021 TIME: 8:41 AM Normal [facility] Toxicology Screen,Uron 05-30 Amphetamines, Urine Negative Normal Negative [facility] Comment on above: Result Comment: Cuto ff threshold at 1000 ng/mL. Performed By: #### C AD #### [facility] [address] [place] [address] [facility] [address] [place], [place] [address] Barbiturates, Urine Negative Normal Negative [facility] Comment on above: Result Comment: Cuto ff threshold at 200 ng/mL. Performed By: #### C AD #### [facility] [address] [place] [address] [address] [place] [phone] [place] [address] Benzodiazepines, Ur Negative Normal Negative [facility] Comment on above: Result Comment: Cuto ff threshold at 200 ng/mL. Performed By: #### C AD #### [facility] [address] [place] [phone] [place] [address] Cannabinoids, Urine Negative Normal Negative [facility] Comment on above: Result Comment: Cuto ff threshold at 50 ng/mL. Performed By: #### C AD #### [facility] [address] [place], [place] [phone] [place] [address] Cocaine, Urine Negative Normal Negative [facility] Comment on above: Result Comment: Cuto ff threshold at 300 ng/mL. Performed By: #### C AD #### [facility] [address] [place], [place] [phone] [place] [address] Opiates, Urine Negative Normal Negative [facility] Comment on above: Result Comment: Cuto ff threshold at 300 ng/mL. Performed By: #### C AD #### [facility] [address] [place], [place] [phone] [place] [address] Oxycodone, Urine Negative Normal Negative [facility] Comment on above: Result Comment: [...] on the same specimen through Client Services ([phone]) if contacted within 48 hours of initial testing. [1]Substance Abuse and Mental Health Services Administration (2012). Clinical Drug Testing in Primary Care Technical Assistance Publication Series 32. Department of Health and Human Services, [place], p.10. Performed By: #### C AD #### [facility] [address] [place], [place] [phone] [place] [address] Phencyclidine, Urine Negative Normal Negative [facility] Comment on above: Result Comment: Cuto ff threshold at 25 ng/mL. Performed By: #### C AD #### [facility] [address] [place] [address] Troponin Ton 05-30-2021 Troponin T <0.010 Normal 0.000-0.029 [facility] Comment on above: Performed By: #### T NT ####[facility] [address] [place] [phone] Urinalysison 05-30-2021 Bilirubin, Urine Negative Normal Negative [facility] Comment on above: Performed By: #### C AD #### [facility] [address] [place], [place] [phone] [place] [address] Clarity (U) Slightly Cloudy Critically abnormal Clear [facility] Comment on above: Performed By: #### C AD #### [facility] [address] [place], [place] [phone] [place] [address] Color (U) Yellow Normal Yellow [facility] Comment on above: Performed By: #### C AD #### [facility] [address] [place] [address] Glucose Ql (U) Negative Normal Negative [facility] Comment on above: Performed By: #### C AD #### [facility] [address] [place] [address] [facility] [address] [place], [place] [address] Hemoglobin/Blood,Ur Negative Normal Negative [facility] Comment on above: Performed By: #### C AD #### [facility] [address] [place] [address] [facility] [address] [place], [place] [address] Ketones Ql (U) Negative Normal Negative [facility] Comment on above: Performed By: #### C AD #### [facility] [address] [place] [address] [facility] [address] [place], [place] [address] Leukest Negative Normal Negative [facility] Comment on above: Performed By: #### C AD #### [facility] [address] [place] [address] [facility] [address] [place], [place] [address] Nitrite Ql (U) Negative Normal Negative [facility] Comment on above: Performed By: #### C AD #### [facility] [address] [place] [address] [facility] [address] [place], [place] [address] pH (U) 8.5 [pH] High 5.0-8.0 [facility] Comment on above: Performed By: #### C AD #### [facility] [address] [place] [address] [facility] [address] [place], [place] [address] Protein, Urine Negative Normal Negative [facility] Comment on above: Performed By: #### C AD #### [facility] [address] [place] [address] [facility] [address] [place], [place] [address] Specific [place], Ur 1.015 Normal 1.005-1.030 [facility] Comment on above: Performed By: #### C AD #### [facility] [address] [place] [address] [place] [address] [place], [place] [address] Urobilinogen Qn (U) 0.2 {Marinane'U}/dL Normal 0.2-1.0 [facility] Comment on above: Performed By: #### C AD #### [facility] [address] [place] [address] [place] [address] Vitamin B1, Whole Blon 05-30 Vitamin B1 (TDP), WB 207.1 nmol/L Normal 84.0-213.0 [facility] Comment on above: Result Comment: This assay measures the concentration of thiamine diphosphate (TDP), the primary active form of vitamin B1. Approximately 90 percent of vitamin B1 present in whole blood is TDP. Thiamine and thiamine monophosphate, which comprise the remaining 10 percent, are not measured. This test was developed and its performance characteristics determined by [facility]'s Isrrael Chris [facility] Pathology and Laboratory Medicine [place] ([facility]). It has not been cleared or approved by the FDA. [facility] is regulated under CLIA as qualified to perform high complexity testing. This test is used for clinical purposes. It should not be regarded as investigational or for research. Performed By: #### S YPHTX, B1WB ####[place] [id number] [place], [place] [phone] Vitamin B12on 05-30-2021 Cobalamin (Vitamin B12) [Mass/Vol] 494 pg/mL Normal 232-1245 [facility] Comment on above: Performed By: #### C AD #### [facility] [place] [address] [place] [address] [place], [place] [address] ALLIED HEALTHon 05-29-2021 ALLIED HEALTH HNO ID: [id number] Author: Danica Jose RT(R) Service: Radiology Author [...] IV DATA: Not applicable SIGNED BY: RT Kitty(Lisa) May 29, 2021 8:51 PM [facility] HNO ID: [id number] Author: Markie Fish Service: ? Author Type: Small Business Representative Type: Allied Health Filed: 05/29/2021 8:39 PM [...] Markie Fish May 29, 2021 8:38 PM [facility] CBC and Differentialon 05-29 Abs Baso 0.05 k/uL Normal <0.11 [facility] Comment on above: Performed By: #### C MARÍA ELENA, MG1, CBCDIF ####[facility] [address] [place] [phone] Abs Childress 0.72 k/uL Normal <0.87 [facility] Comment on above: Performed By: #### C MP, MG1, CBCDIF ####[place] [address] Abs Neut 7.86 k/uL High 1.45-7.50 [facility] Comment on above: Performed By: #### C MP, MG1, CBCDIF ####[place] [address] Absolute nRBC <0.01 Normal <0.01 [facility] Comment on above: Performed By: #### C MP, MG1, CBCDIF ####[place] [address] Basophils/100 WBC (Bld) 0.5 % Normal [facility] Comment on above: Performed By: #### C MP, MG1, CBCDIF ####[place] [address] DTYPE Auto Diff Normal [facility] Comment on above: Performed By: #### C MP, MG1, CBCDIF ####[place] [address] Eosinophils (Bld) [#/Vol] 0.10 10*3/uL Normal <0.46 [facility] Comment on above: Performed By: #### C MP, MG1, CBCDIF ####[place] [address] Eosinophils/100 WBC (Bld) 0.9 % Normal [facility] Comment on above: Performed By: #### C MP, MG1, CBCDIF ####[place] [address] Erythrocyte distribution width (RBC) [Ratio] 15.5 % High 11.5-15.0 [facility] Comment on above: Performed By: #### C MP, MG1, CBCDIF ####[place] [address] Hematocrit (Bld) [Volume fraction] 41.6 % Normal 39.0-51.0 [facility] Comment on above: Performed By: #### C MP, MG1, CBCDIF ####[place] [address] Hemoglobin (Bld) [Mass/Vol] 12.7 g/dL Low 13.0-17.0 [facility] Comment on above: Performed By: #### C MP MG1, CBCDIF ####[facility] [address] [place] [address] Lymphocytes (Bld) [#/Vol] 2.04 10*3/uL Normal 1.00-4.00 [facility] Comment on above: Performed By: #### C MP, MG1, CBCDIF ####[facility] [address] [place] [address] Lymphocytes/100 WBC (Bld) 18.9 % Normal [facility] Comment on above: Performed By: #### C MARÍA ELENA MG1, CBCDIF ####[place] [address] MCH 27.3 pG Normal 26.0-34.0 [facility] Comment on above: Performed By: #### C MARÍA ELENA MG1, CBCDIF ####[place] [address] MCHC (RBC) [Mass/Vol] 30.5 g/dL Normal 30.5-36.0 [facility] Comment on above: Performed By: #### C MP, MG1, CBCDIF ####[place] [address] MCV (RBC) [Entitic vol] 89.5 fL Normal 80.0-100.0 [facility] Comment on above: Performed By: #### C MP, MG1, CBCDIF ####[place] [address] Monocytes/100 WBC (Bld) 6.7 % Normal [facility] Comment on above: Performed By: #### C MP, MG1, CBCDIF ####[place] [address] Neutrophils/100 WBC (Bld) 73.0 % Normal [facility] Comment on above: Performed By: #### C MP, MG1, CBCDIF ####[place] [address] NRBCs 0.0 /100 WBC Normal 0 [facility] Comment on above: Performed By: #### C MP, MG1, CBCDIF ####[facility] [address] [place] [address] Platelet mean volume (Bld) [Entitic vol] 10.1 fL Normal 9.0-12.7 [facility] Comment on above: Performed By: #### C MP, MG1, CBCDIF ####[facility] [address] [place] [id number] Platelets (Bld) [#/Vol] 291 10*3/uL Normal 150-400 [facility] Comment on above: Performed By: #### C MP, MG1, CBCDIF ####[facility] [address] [place] [address] RBC (Bld) [#/Vol] 4.65 10*6/uL Normal 4.20-6.00 [facility] Comment on above: Performed By: #### C MP, MG1, CBCDIF ####[facility] [address] [place], [place] [address] WBC (Bld) [#/Vol] 10.77 10*3/uL Normal 3.70-11.00 [facility] Comment on above: Performed By: #### C MP, MG1, CBCDIF ####[facility] [address] [place] [address] CT BRAIN WO IVCONon 05-29-19 CT BRAIN WO IVCON * * *Final Report* * * DATE OF EXAM: May 29 2021 8:42PM [facility] [place]IN [place] / PROCEDURE REASON: Head trauma, headache * * * * Physician Interpretation * * * * EXAMINATION: CT CERVICAL SPINE WO IVCON, CT BRAIN WO IVCON CLINICAL HISTORY: C-spine trauma, NEXUS/CCR positive (accession [id number]), Head trauma, headache (accession [id number]) TECHNIQUE: Serial axial unenhanced images were obtained from the vertex to the foramen magnum. Spiral, high resolution axial unenhanced images were obtained from the skull base to the cervicothoracic junction with sagittal and coronal planar reconstructions. Dose-Length Product (DLP): 2132 mGy*cm. CT Dose Reduction Employed: Automated exposure control (AEC) COMPARISON: 08/13/[address] RESULT: BRAIN: Post-operative change: Right parietal approach BRAKE REPAIR MECHANIC shunt is intact. The intracranial fragments of [...] vertebrae with counting from the craniocervical junction. Chlorinator: OG Transcribe Date/Time: May 29 2021 8:59P Dictated by : CARLOS YOUNGER MD This examination was interpreted and the report reviewed and electronically signed by: CARLOS YOUNGER MD on May 29 2021 9:14PM EST [id number] [facility] CT CERVICAL SPINE WO IVCONon 05-29-2021 CT CERVICAL SPINE WO IVCON * * *Final Report* * * DATE OF EXAM: May 29 2021 8:42PM [facility] [place] CERVICAL SPINE WO IVCON / PROCEDURE REASON: C-spine trauma, NEXUS/CCR positive * * * * Physician Interpretation * * * * EXAMINATION: CT CERVICAL SPINE WO IVCON, CT BRAIN WO IVCON CLINICAL HISTORY: C-spine trauma, NEXUS/CCR positive (accession [id number]), Head trauma, headache (accession [id number]) TECHNIQUE: Serial axial unenhanced images were obtained from the vertex to the foramen magnum. Spiral, high resolution axial unenhanced images were obtained from the skull base to the cervicothoracic junction with sagittal and coronal planar reconstructions. Dose-Length Product (DLP): 2132 mGy*cm. CT Dose Reduction Employed: Automated exposure control (AEC) COMPARISON: 08/13/[address] RESULT: BRAIN: Post-operative change: Right parietal approach BRAKE REPAIR MECHANIC shunt is intact. The intracranial fragments of [...] vertebrae with counting from the craniocervical junction. Chlorinator: PSCB Transcribe Date/Time: May 29 2021 8:59P Dictated by : CARLOS YOUNGER MD This examination was interpreted and the report reviewed and electronically signed by: CARLOS YOUNGER MD on May 29 2021 9:14PM EST [id number] [facility] Cepheid Bill only (EXCFR)on 05-29-2021 Cepheid Bill only (EXCFR) Billed for services performed [facility] Comment on above: Performed By: #### C AD #### [facility] [address] [place] [address] [facility] [address] [place], [place] [address] Comp Metabolic Panelon 05-29 Albumin [Mass/Vol] 4.1 g/dL Normal 3.9-4.9 [facility] Comment on above: Performed By: #### C MP ####[facility] [address] [place] [address] ALP [Catalytic activity/Vol] 86 U/L Normal 38-113 [facility] Comment on above: Performed By: #### C MP ####[facility] [address] [place] [address] ALT [Catalytic activity/Vol] 15 U/L Normal 10-54 [facility] Comment on above: Performed By: #### C MP ####[facility] [address] [place] [address] Anion gap [Moles/Vol] 9 mmol/L Normal 9-18 [facility] Comment on above: Performed By: #### C MP ####[facility] [address] [place] [address] AST [Catalytic activity/Vol] 22 U/L Normal 14-40 [facility] Comment on above: Performed By: #### C MP ####[facility] [address] [place] [address] Bilirubin [Mass/Vol] 0.2 mg/dL Normal 0.2-1.3 [facility] Comment on above: Performed By: #### C MP ####[facility] [address] [place] [address] Calcium [Mass/Vol] 9.1 mg/dL Normal 8.5-10.2 [facility] Comment on above: Performed By: #### C MP ####[facility] [address] [place] [id number] Chloride [Moles/Vol] 103 mmol/L Normal 97-105 [facility] Comment on above: Performed By: #### C MP ####[facility] [address] [place], [place] [address] CO2 [Moles/Vol] 29 mmol/L Normal 22-30 [facility] Comment on above: Performed By: #### C MP ####[facility] Tqqagpmgyt2122 [address]721-[address] Creatinine [Mass/Vol] 0.89 mg/dL Normal 0.73-1.22 [facility] Comment on above: Performed By: #### C MP ####[facility] Jxahivybgg7375 [address]5[address] eGFR- Amer. >60 Normal [facility] Comment on above: Performed By: #### C MP ####[facility] Faascgjfxb7455 [address]5160 eGFR-All Other Races >60 Normal [facility] Comment on above: Result Comment: eGFR [...] at [email or web address]. Performed By: #### C MP ####[facility] Tuzkruisam2887 [address]5160 Glucose [Mass/Vol] 120 mg/dL High 74-99 [facility] Comment on above: Result Comment: The [employer] (ADA) provides guidance for cutoff [...] Standards of Medical Care in Diabetes 2016, [employer]. Diabetes Care. 2016.39(Suppl 1). Performed By: #### C MP ####[facility] [address] [place] [address] Potassium [Moles/Vol] 4.2 mmol/L Normal 3.7-5.1 [facility] Comment on above: Performed By: #### C MP ####[facility] [address] [place] [address] Protein [Mass/Vol] 7.1 g/dL Normal 6.3-8.0 [facility] Comment on above: Performed By: #### C MP ####[place] [address] Sodium [Moles/Vol] 141 mmol/L Normal 136-144 [facility] Comment on above: Performed By: #### C MP ####[facility] [address] [place] [address] Urea nitrogen [Mass/Vol] 11 mg/dL Normal 9-24 [facility] Comment on above: Performed By: #### C MP ####[facility] [address] [place] [address] Albumin [Mass/Vol] 4.1 g/dL Normal 3.9-4.9 [facility] Comment on above: Performed By: #### C MP, MG1, CBCDIF ####[facility] [address] [place] [address] ALP [Catalytic activity/Vol] 86 U/L Normal 38-113 [facility] Comment on above: Performed By: #### C MP, MG1, CBCDIF ####[facility] [address] [place] [address] ALT Unable to assay due to interference from hemolysis. Suggest reorder as clinically indicated. Normal 10-54 [facility] Comment on above: Result Comment: Call ed to LISA Rea at 2129 on 05.29.21 by Sabino Performed By: #### C MP, MG1, CBCDIF ####[facility] [address] [place] [address] Anion gap [Moles/Vol] 12 mmol/L Normal 9-18 [facility] Comment on above: Performed By: #### C MP, MG1, CBCDIF ####[facility] [address] [place] [address] AST Unable to assay due to interference from hemolysis. Suggest reorder as clinically indicated. Normal 14-40 [facility] Comment on above: Result Comment: Call ed to ED Álvaro at 2129 on 05.29.21 by Sabino Performed By: #### C MP, MG1, CBCDIF ####[facility] [address] [place] [address] Bilirubin [Mass/Vol] 0.2 mg/dL Normal 0.2-1.3 [facility] Comment on above: Performed By: #### C MP, MG1, CBCDIF ####[facility] [address] [place] [address] Calcium [Mass/Vol] 9.0 mg/dL Normal 8.5-10.2 [facility] Comment on above: Performed By: #### C MP, MG1, CBCDIF ####[facility] Q[address]wnl5[address] [place] [address] Chloride [Moles/Vol] 102 mmol/L Normal 97-105 [facility] Comment on above: Performed By: #### C MP, MG1, CBCDIF ####[facility] [address]arsg2626 [place] [address] CO2 [Moles/Vol] 27 mmol/L Normal 22-30 [facility] Comment on above: Performed By: #### C MP, MG1, CBCDIF ####[facility] [address] [place] [address] Creatinine [Mass/Vol] 0.75 mg/dL Normal 0.73-1.22 [facility] Comment on above: Performed By: #### C MP, MG1, CBCDIF ####[facility] [address] [place] [address] eGFR- Amer. >60 Normal [facility] Comment on above: Performed By: #### C MP, MG1, CBCDIF ####[facility] [address] [place] [address] eGFR-All Other Races >60 Normal [facility] Comment on above: Result Comment: eGFR [...] By: #### C MARÍA ELENA, MG1, CBCDIF ####[facility] Agszoimmjd3224 [address]721-[address] Glucose [Mass/Vol] 112 mg/dL High 74-99 [facility] Comment on above: Result Comment: The [employer] Diabetes [employer] (ADA) provides guidance for cutoff [...] Standards of Medical Care in Diabetes 2016, [employer]. Diabetes Care. 2016.39(Suppl 1). Performed By: #### C MP, MG1, CBCDIF ####[facility] Rkdsnbezdp0554 [address]721-[address]160 Potassium Unable to assay due to interference from hemolysis. Suggest reorder as clinically indicated. Normal 3.7-5.1 [facility] Comment on above: Result Comment: Call ed to LISA Rea at 2129 on 05.29.21 by Sabino Performed By: #### C MP, MG1, CBCDIF ####[facility] Bxehrcglhe3185 [address]5160 Protein [Mass/Vol] 7.3 g/dL Normal 6.3-8.0 [facility] Comment on above: Performed By: #### C MP, MG1, CBCDIF ####[facility] Oqtosfmrmx0445 [address]5160 Sodium [Moles/Vol] 141 mmol/L Normal 136-144 [facility] Comment on above: Performed By: #### C MP, MG1, CBCDIF ####[facility] [address] [place] [address] Urea nitrogen [Mass/Vol] 11 mg/dL Normal 9-24 [facility] Comment on above: Performed By: #### C MP, MG1, CBCDIF ####[facility] [address] [place] [address] ED PROV NOTEon 05-29-2021 ED PROV NOTE HNO ID: [id number] Author: Shanell Slaughter MD Service: ? Author [...] No radiographic evidence of acute cardiopulmonary disease. Chlorinator: [facility] Transcribe Date/Time: May 29 2021 [...] vertebrae with counting from the craniocervical junction. Chlorinator: [facility] Transcribe Date/Time: May 29 2021 [...] vertebrae with counting from the craniocervical junction. Chlorinator: [facility] Transcribe Date/Time: May 29 (more content not included)... Normal [facility] ED PROV NOTE HNO ID: [id number] Author: Flavio Pandya DO Service: Emergency Medicine Author Type: Physician Type: ED Provider Notes Filed: 05/29/2021 7:10 PM Note Text: ED Provider Note Patient Name: Andrew Sifuentes SERVICE DATE: 05/29/21 History Patient presents with: Fall 71 yo male non-smoker, hx of HTN, 2 [employer] shunts, PE (not on anticoagulation now), asthma, [...] with assistance from bedside clinician. Provider Location: Non-[facility] Patient Location: Outpatient Hospital Physical Exam [...] Pandya, DO Flavio Pandya, DO 05/29/211909 Normal [facility] EXCOVD, Flu A/B, RSV (On int erfaces 1102,1120)on 05-29-2021 Influenza A PCR Negative Normal [facility] Comment on above: Performed By: #### C AD #### [facility] [address] [place] [address] [facility] [address] [place], [place] [address] Influenza B PCR Negative Normal [facility] Comment on above: Performed By: #### C AD #### [facility] [address] [place], [place] [address] [place] [address] RSV PCR Negative Normal [facility] Comment on above: Result Comment: This test has been authorized by [facility] under an Emergency Use Authorization (EUA). Performed By: #### C AD #### [facility] [address] [place] [address] SARS-CoV-2 (COVID-19) RNA MEGAN+probe Ql (Unsp spec) UPPER RESPIRATORY TRACT SWAB Normal [facility] Comment on above: Performed By: #### C AD #### [place] [address] SARS-CoV-2 (COVID-19) RNA MEGAN+probe Ql (Unsp spec) Negative for COVID19 (SARS CoV2) by RT-PCR or equivalent method. Normal Negative for COVID19 (SARS CoV2) by RT-PCR or equivalent method. [facility] Comment on above: Result Comment: This test has been authorized by FDA under an Emergency Use Authorization (EUA). Performed By: #### C AD #### [facility] [address] [place] [address] Magnesiumon 05-29-2021 Magnesium [Mass/Vol] 2.2 mg/dL Normal 1.7-2.3 [facility] Comment on above: Performed By: #### C MP, MG1, CBCDIF ####[facility] [address] [place], [place] [phone] NT Pro BNPon 05-29-2021 PRO B Natr Peptide 303 pg/mL High <125 [facility] Comment on above: Performed By: #### N TBNP ####[facility] [address] [place] [phone] Troponin Ton 05-29-2021 Troponin T <0.010 Normal 0.000-0.029 [facility] Comment on above: Performed By: #### T NT ####[facility] [address] [place] [phone] Troponin T Unable to assay due to interference from hemolysis. Suggest reorder as clinically indicated. Normal 0.000-0.029 [facility] Comment on above: Result Comment: Call ed to ED Álvaro at 2129 on 05.29.21 by Sabino Performed By: #### T NT ####[facility] [address] [place] [phone] XR CHEST 1V FRONTAL PORTon 0 05-29-2021 [...] No radiographic evidence of acute cardiopulmonary disease. Chlorinator: [facility] Transcribe Date/Time: May 29 2021 8:53P Dictated by : ROLY BANGURA MD This examination was interpreted and the report reviewed and electronically signed by: ROLY BANGURA MD on May 29 2021 8:54PM EST [id number] Normal [facility] COMPREHENSIVE PANELon 2020 Albumin [Mass/Vol] 3.9 g/dL Normal 3.4 - 5.0 [facility] Comment on above: Order Comment: PATIE NT FASTING Performed By: #### C MP #### [facility] [address] [place] [address] ALP [Catalytic activity/Vol] 71 U/L Normal 33 - 136 [facility] Comment on above: Order Comment: PATIE NT FASTING Performed By: #### C MP #### [facility] [address] [place] [address] ALT [Catalytic activity/Vol] 19 U/L Normal 10 - 52 [facility] Comment on above: Order Comment: PATIE NT FASTING Result Comment: Nasima ents treated with Sulfasalazine may generate falsely decreased results for ALT. Performed By: #### C MP #### [facility] [address] [place] [address] Anion gap [Moles/Vol] 13 mmol/L Normal 10 - 20 [facility] Comment on above: Order Comment: PATIE NT FASTING Performed By: #### C MP #### [facility] [address] [place] [address] AST [Catalytic activity/Vol] 20 U/L Normal 9 - 39 [facility] Comment on above: Order Comment: PATIE NT FASTING Performed By: #### C MP #### [facility] [address] [place] [address] Bilirubin [Mass/Vol] 0.6 mg/dL Normal 0.0 - 1.2 [facility] Comment on above: Order Comment: PATIE NT FASTING Performed By: #### C MP #### [facility] [address] [place] [address] Calcium [Mass/Vol] 9.0 mg/dL Normal 8.6 - 10.6 [facility] Comment on above: Order Comment: PATIE NT FASTING Performed By: #### C MP #### [facility] [address] [place] [address] Chloride [Moles/Vol] 103 mmol/L Normal 98 - 107 [facility] Comment on above: Order Comment: PATIE NT FASTING Performed By: #### C MP #### [facility] [address] [place] [address] Creatinine [Mass/Vol] 0.94 mg/dL Normal 0.50 - 1.30 [facility] Comment on above: Order Comment: PATIE NT FASTING Performed By: #### C MP #### [facility] [address] [place] [address] GFR- AM. >60 Normal >60 [facility] Comment on above: Order Comment: PATIE NT FASTING Result Comment: CALC ULATIONS OF ESTIMATED GFR ARE PERFORMED USING THE MDRD STUDY EQUATION FOR THE IDMS-TRACEABLE CREATININE METHODS. CLIN CHEM 2007;53:766-72 Performed By: #### C MP #### [facility] [address] [place] [address] GFR-NON AM. >60 Normal >60 [facility] Comment on above: Order Comment: PATIE NT FASTING Performed By: #### C MP #### [facility] [address] [place] [address] Glucose [Mass/Vol] 85 mg/dL Normal 74 - 99 [facility] Comment on above: Order Comment: PATIE NT FASTING Performed By: #### C MP #### [facility] [address] [place] [address] HCO3 (Bld) [Moles/Vol] 30 mmol/L Normal 21 - 32 [facility] Comment on above: Order Comment: PATIE NT FASTING Performed By: #### C MP #### [facility] [address] [place] [address] Potassium [Moles/Vol] 4.1 mmol/L Normal 3.5 - 5.3 [facility] Comment on above: Order Comment: PATIE NT FASTING Performed By: #### C MP #### [facility] [address] [place] [address] Protein [Mass/Vol] 6.6 g/dL Normal 6.4 - 8.2 [facility] Comment on above: Order Comment: PATIE NT FASTING Performed By: #### C MP #### [facility] [address] [place] [address] Sodium [Moles/Vol] 142 mmol/L Normal 136 - 145 [facility] Comment on above: Order Comment: PATIE NT FASTING Performed By: #### C MP #### [facility] [address] [place] [address] Urea nitrogen [Mass/Vol] 14 mg/dL Normal 6 - 23 [facility] Comment on above: Order Comment: PATIE NT FASTING Performed By: #### C MP #### [facility] [address] [place] [address] LIPID PANEL (CORONARY RISK 2 )on 09-03-2020 Cholesterol [Mass/Vol] 210 mg/dL High 0 - 199 [facility] Comment on above: Order Comment: PATIE [...] Performed By: #### L IPID #### [facility] [address] [place] [address] Cholesterol in HDL [Mass/Vol] 50.1 mg/dL Normal [facility] Comment on above: Order Comment: PATIE NT FASTING Result Comment: . AGE VERY LOW LOW NORMAL HIGH 0-19 Y < 35 < 40 40-45 ---- 20-24 Y ---- < 40 >45 ---- >24 Y ---- < 40 40-60 >60 . Performed By: #### L IPID #### [facility] [address] [place] [address] Cholesterol in LDL [Mass/Vol] 130 mg/dL High 0 - 99 [facility] Comment on above: Order Comment: PATIE NT FASTING Result Comment: . NEAR BORD AGE DESIRABLE OPTIMAL HIGH HIGH VERY HIGH 0-19 Y 0 - 109 --- 110-129 >/= 130 ---- 20-24 Y 0 - 119 --- 120-159 >/= 160 ---- >24 Y 0 - 99 100-129 130-159 160-189 >/=190 . Performed By: #### L IPID #### [facility] [address] [place] [address] Cholesterol in VLDL [Mass/Vol] 30 mg/dL Normal 0 - 40 [facility] Comment on above: Order Comment: PATIE NT FASTING Performed By: #### L IPID #### [facility] [address] [place] [address] Cholesterol.total/Chol esterol in HDL [Mass ratio] 4.2 {ratio} Normal [facility] Comment on above: Order Comment: PATIE NT FASTING Result Comment: REF VALUES DESIRABLE < 3.4 HIGH RISK > 5.0 Performed By: #### L IPID #### [facility] [address] [place] [address] Triglyceride [Mass/Vol] 152 mg/dL High 0 - 149 [facility] Comment on above: Order Comment: PATIE [...] Performed By: #### L IPID #### [facility] [address] [place] [address] PROSTATE SPEC.AG,SCREENon PROSTATE SPEC.AG,SCREEN 0.37 ng/mL Normal 0.00 - 4.00 [facility] Comment on above: Order Comment: PATIE NT FASTING Result Comment: The FDA requires that the method used for PSA assay be reported to the physician. Values obtained with different assay methods must not be used interchangeably. This test was performed at [facility] using the [employer] / TLL PSA method, which is a sandwich immunoassay using chemiluminescence for quantitation. The assay is approved for measurement of prostate-specific antigen (PSA) in serum and may be used in conjunction with a digital rectal examination in men 50 years and older as an aid in detection of prostate cancer. 5-Bripw-pwqfdxxlo inhibitors (e.g. Proscar, Finasteride, Avodart, Dutasteride and Elizabeth) for the treatment of BPH have been shown to lower PSA levels by an average of 50% after 6 months of treatment. Performed By: #### P SAS #### [facility] [address] [place] [address] TSH WITH REFLEX TO FREE T4 I F ABNORMALon 09-03-2020 TSH Qn 0.97 m[IU]/L Normal 0.44 - 3.98 [facility] Comment on above: Order Comment: PATIE NT FASTING Result Comment: TSH testing is performed using different testing methodology at [facility] than at other [facility]. Direct result comparisons should only be made within the same method. Performed By: #### T HYDS #### [facility] [address] [place] [address] CBC AND DIFFERENTIALon 09-02 % AUTOMATED IMMATURE GRAN 0.3 % Normal 0.0 - 0.9 [facility] Comment on above: Order Comment: PATIE NT FASTING Result Comment: [place] Granulocyte Count (IG) includes promyelocytes, myelocytes and metamyelocytes but does not include bands. Percent differential counts (%) should be interpreted in the context of the absolute cell counts (cells/L). Performed By: #### C BCDF #### [facility] [address] [place] [address] Basophils (Bld) [#/Vol] 0.07 10*3/uL Normal 0.00 - 0.10 [facility] Comment on above: Order Comment: PATIE NT FASTING Result Comment: Auto mated WBC differential has been confirmed by manual smear. Performed By: #### C BCDF #### [facility] [address] [place] [address] Basophils/100 WBC (Bld) 0.9 % Normal 0.0 - 2.0 [facility] Comment on above: Order Comment: PATIE NT FASTING Performed By: #### C BCDF #### [facility] [address] [place] [address] Eosinophils (Bld) [#/Vol] 0.21 10*3/uL Normal 0.00 - 0.70 [facility] Comment on above: Order Comment: PATIE NT FASTING Performed By: #### C BCDF #### [facility] [address] [place] [address] Eosinophils/100 WBC (Bld) 2.8 % Normal 0.0 - 6.0 [facility] Comment on above: Order Comment: PATIE NT FASTING Performed By: #### C BCDF #### [facility] [address] [place] [address] Lymphocytes (Bld) [#/Vol] 2.28 10*3/uL Normal 1.20 - 4.80 [facility] Comment on above: Order Comment: PATIE NT FASTING Performed By: #### C BCDF #### [facility] [address] [place] [address] Lymphocytes/100 WBC (Bld) 30.9 % Normal 13.0 - 44.0 [facility] Comment on above: Order Comment: PATIE NT FASTING Performed By: #### C BCDF #### [facility] [address] [place] [address] Monocytes (Bld) [#/Vol] 0.50 10*3/uL Normal 0.10 - 1.00 [facility] Comment on above: Order Comment: PATIE NT FASTING Performed By: #### C BCDF #### [place] [address] [place] [address] Monocytes/100 WBC (Bld) 6.8 % Normal 2.0 - 10.0 [facility] Comment on above: Order Comment: PATIE NT FASTING Performed By: #### C BCDF #### [facility] [address] [place] [address] Neutrophils (Bld) [#/Vol] 4.29 10*3/uL Normal 1.20 - 7.70 [facility] Comment on above: Order Comment: PATIE NT FASTING Performed By: #### C BCDF #### [facility] [address] [place] [address] Neutrophils/100 WBC (Bld) 58.3 % Normal 40.0 - 80.0 [facility] Comment on above: Order Comment: PATIE NT FASTING Performed By: #### C BCDF #### [facility] [address] [place] [address] Erythrocyte distribution width (RBC) [Ratio] 14.6 % High 11.5 - 14.5 [facility] Comment on above: Order Comment: PATIE NT FASTING Performed By: #### C BCDF #### [facility] [address] [place] [address] Hematocrit (Bld) [Volume fraction] 43.1 % Normal 41.0 - 52.0 [facility] Comment on above: Order Comment: PATIE NT FASTING Performed By: #### C BCDF #### [facility] [address] [place] [address] Hemoglobin (Bld) [Mass/Vol] 13.3 g/dL Low 13.5 - 17.5 [facility] Comment on above: Order Comment: PATIE NT FASTING Performed By: #### C BCDF #### [facility] [address] [place] [address] MCHC (RBC) [Mass/Vol] 30.9 g/dL Low 32.0 - 36.0 [facility] Comment on above: Order Comment: PATIE NT FASTING Performed By: #### C BCDF #### [facility] [address] [place] [address] MCV (RBC) [Entitic vol] 92 fL Normal 80 - 100 [facility] Comment on above: Order Comment: PATIE NT FASTING Performed By: #### C BCDF #### [facility] [address] [place] [address] NUCLEATED RBC 0.0 /100 WBC Normal 0.0-0.0 [facility] Comment on above: Order Comment: PATIE NT FASTING Performed By: #### C BCDF #### [facility] [address] [place] [address] Platelets (Bld) [#/Vol] 267 10*3/uL Normal 150 - 450 [facility] Comment on above: Order Comment: PATIE NT FASTING Performed By: #### C BCDF #### [facility] [address] [place] [address] RBC 4.69 x10E12/L Normal 4.50 - 5.90 [facility] Comment on above: Order Comment: PATIE NT FASTING Performed By: #### C BCDF #### [facility] [address] [place] [address] WBC (Bld) [#/Vol] 7.4 10*3/uL Normal 4.4 - 11.3 [facility] Comment on above: Order Comment: PATIE NT FASTING Performed By: #### C BCDF #### [facility] [address] [place] [address] RED CELL MORPHOLOGYon 2020 CHANELL CELLS Few Normal [facility] Comment on above: Order Comment: PATIE NT FASTING Performed By: #### M ORP2 #### [facility] [address] [place] [address] OVALOCYTES Few Normal [facility] Comment on above: Order Comment: PATIE NT FASTING Performed By: #### M ORP2 #### [facility] [address] [place] [address] POLYCHROMASIA Mild Normal [facility] Comment on above: Order Comment: PATIE NT FASTING Performed By: #### M ORP2 #### [facility] [address] [place] [address] RBC FRAGMENTS Few Normal [facility] Comment on above: Order Comment: PATIE NT FASTING Performed By: #### M ORP2 #### [facility] [address] [place] [address] RBC morphology finding Nom (Bld) See Below Normal [facility] Comment on above: Order Comment: PATIE NT FASTING Performed By: #### M ORP2 #### [facility] [address] [place] [address] No Panel Informationon 01-19 76 1 MP-Cardiolo [...] [place] Work Phone: [email or web address] ?RetrieveTestByDateTime?P [email or web address]&Date=1 09-13-2019&Time=15%3a11%3a 03%3a00&TestType=ECG&Site =1&OutputType=PDF&Ext=PDF MP-Cardiolo gy-[place] 140 [place] Work Phone: Otheron 11-13-2019 [facility] Complete Blood Count + Diffe rentialon [...] width (RBC) [Ratio] 13.7 % See Below [facility] Work Phone: Comment on above: Reference Range: 11. 5 - 14.5 Hematocrit (Bld) [Volume fraction] 45.5 % See Below [facility] Work Phone: Comment on above: Reference Range: 41. 0 - 52.0 Hemoglobin (Bld) [Mass/Vol] 14.0 g/dL See Below [facility] Work Phone: Comment on above: Reference Range: 13. 5 - 17.5 Lymphocytes (Bld) [#/Vol] 2.15 {x10E9/L} See Below [facility] Work Phone: Comment on above: Reference Range: 1.2 0 - 4.80 Lymphocytes/100 WBC (Bld) 29.9 % See Below [facility] Work Phone: Comment on above: Reference Range: 13. 0 - 44.0 MCHC (RBC) [Mass/Vol] 30.8 g/dL below low threshold See Below [facility] Work Phone: Comment on above: Reference Range: 32. 0 - 36.0 MCV (RBC) [Entitic vol] 94 fL 80 - 100 -[facility] Work Phone: Monocytes (Bld) [#/Vol] 0.49 {x10E9/L} See Below [facility] Work Phone: Comment on above: Reference Range: 0.1 0 - 1.00 Monocytes/100 WBC (Bld) 6.8 % 2.0 - 10.0 -[facility] Work Phone: Neutrophils (Bld) [#/Vol] 4.30 {x10E9/L} See Below [facility] Work Phone: Comment on above: Reference Range: 1.2 0 - 7.70 Neutrophils/100 WBC (Bld) 59.9 % See Below [facility] Work Phone: Comment on above: Reference Range: 40. 0 - 80.0 Platelets (Bld) [#/Vol] 270 {x10E9/L} 150 - 450 [facility] Work Phone: RBC (Bld) [#/Vol] 4.85 {x10E12/L} See Below [facility] Work Phone: Comment on above: Reference Range: 4.5 0 - 5.90 WBC (Bld) [#/Vol] 0.0 {/100_WBC} 0.0-0.0 [facility] Work Phone: WBC (Bld) [#/Vol] 7.2 {x10E9/L} 4.4 - 11.3 [facility] Work Phone: Complete Blood Count + Differential 0.1 % 0.0 - 0.9 [facility] Work Phone: Comment on above: Immature Granulocyte Count (IG) includes promyelocytes, myelocytes and metamyelocytes but does not include bands. Percent differential counts (%) should be interpreted in the context of the absolute cell counts (cells/L). Lipid Panelon 11-06-2019 Cholesterol [Mass/Vol] 181 mg/dL 0 - 199 [facility] Work Phone: Comment on [...] in HDL [Mass/Vol] 52.1 mg/dL [facility] Work Phone: Comment on above: . AGE VERY LOW LOW N ORMAL HIGH 0-19 Y < 35 < 40 40-45 ---- 20-24 Y ---- < 40 >45 ---- >24 Y ---- < 40 40-60 >60. Cholesterol in LDL [Mass/Vol] 97 mg/dL 0 - 99 [facility] Work Phone: Comment on above: . NEAR BORD AGE IZABELLA RABLE OPTIMAL HIGH HIGH VERY HIGH 0-19 Y 0 - 109 --- 110-129 >/= 130 ---- 20-24 Y 0 - 119 --- 120-159 >/= 160 ---- >24 Y 0 - 99 100-129 130-159 160-189 >/=190. Cholesterol.total/Chol esterol in HDL [Mass ratio] 3.5 {ratio} [facility] Work Phone: Comment on above: REF VALUESDESIRABLE < 3.4HIGH RISK > 5.0 Triglyceride [Mass/Vol] 158 mg/dL above high threshold 0 - 149 [facility] Work Phone: Comment on above: [...] 32 mg/dL 0 - 40 [facility] Work Phone: Metabolic Panelon 11-06-2019 ALP [Catalytic activity/Vol] 70 U/L 33 - 136 [facility] Work Phone: Anion gap [Moles/Vol] 13 mmol/L 10 - 20 [facility] Work Phone: Bilirubin [Mass/Vol] 0.6 mg/dL 0.0 - 1.2 [facility] Work Phone: Calcium [Mass/Vol] 9.4 mg/dL 8.6 - 10.6 [facility] Work Phone: Chloride [Moles/Vol] 99 mmol/L 98 - 107 [facility] Work Phone: CO2 [Moles/Vol] 30 mmol/L 21 - 32 [facility] Work Phone: Creatinine [Mass/Vol] 0.87 mg/dL See Below [facility] Work Phone: Comment on above: Reference Range: 0.5 0 - 1.30 Glucose [Mass/Vol] 89 mg/dL 74 - 99 [facility] Work Phone: Potassium [Moles/Vol] 4.3 mmol/L 3.5 - 5.3 [facility] Work Phone: Protein [Mass/Vol] 7.3 g/dL 6.4 - 8.2 [facility] Work Phone: Sodium [Moles/Vol] 138 mmol/L 136 - 145 [facility] Work Phone: Urea nitrogen [Mass/Vol] 14 mg/dL 6 - 23 [facility] Work Phone: Otheron 11-06-2019 Albumin BCP dye [Mass/Vol] 4.4 g/dL 3.4 - 5.0 [facility] Work Phone: ALT With P-5'-P [Catalytic activity/Vol] 11 U/L 10 - 52 [facility] Work Phone: Comment on above: Patients treated wit h Sulfasalazine may generate falsely decreased results for ALT. AST With P-5'-P [Catalytic activity/Vol] 17 U/L 9 - 39 [facility] Work Phone: >60 >60 [facility] Work Phone: Comment on above: CALCULATIONS OF LUZMARIA MATED GFR ARE PERFORMED USING THE MDRD STUDY EQUATION FOR THE IDMS-TRACEABLE CREATININE METHODS. CLIN CHEM 2007;[id number] Culture, urine Bacteria identified Cx Nom (U) Mixed Gram Pos & Gram Neg Org [facility] Work Phone: Bacteria identified Cx Nom (U) Klebsiella pneumoniae sp pneum [facility] Work Phone: Vital Signs Date Time Vital Sign Value Performing Clinician Facility 09-13-2023 11:48-0400 Body height 175.3 cm Rebecca Buck MD Work Phone: [facility] 09-13-2023 11:48-0400 Body mass index (BMI) [Ratio] 25.84 kg/m2 Rebecca Buck MD Work Phone: [facility] 09-13-2023 11:48-0400 Body weight 79.38 kg Rebecca Buck MD Work Phone: [facility] 08-13-2023 09:56-0400 Body height 175.3 cm Rebecca Buck MD Work Phone: [facility] 08-13-2023 09:56-0400 Body mass index (BMI) [Ratio] 25.84 kg/m2 Rebecca Buck MD Work Phone: [facility] 08-13-2023 09:56-0400 Body weight 79.38 kg Rebecca Buck MD Work Phone: [facility] 03-02-2022 18:49-0400 Body temperature 98.01 [degF] Lanette Munguia DO Work Phone: [facility] 03-02-2022 18:49-0400 Diastolic blood pressure 72 mm[Hg] Lanette Mnuguia DO Work Phone: [facility] 03-02-2022 18:49-0400 Heart rate 94 /min Lanette Munguia DO Work Phone: [facility] 03-02-2022 18:49-0400 Respiratory rate 18 /min Lanette Munguia DO Work Phone: [facility] 03-02-2022 18:49-0400 SaO2% (BldA) [Mass fraction] 98 % Lanette Munguia DO Work Phone: [facility] 03-02-2022 18:49-0400 Systolic blood pressure 104 mm[Hg] Lanette Munguia DO Work Phone: [facility] 03-02-2022 11:55-0400 Body height 175.3 cm Lanette Munguia DO Work Phone: [facility] 03-02-2022 11:55-0400 Body mass index (BMI) [Ratio] 25.84 kg/m2 Lanette Munguia DO Work Phone: [facility] 03-02-2022 11:55-0400 Body weight 79.38 kg Lanette Munguia DO Work Phone: [facility] 12-22-2021 02:08-0400 Diastolic blood pressure 67 mm[Hg] Sharon Gonzalez MD Work Phone: [facility] 12-22-2021 02:08-0400 Heart rate 77 /min Sharon Gonzalez MD Work Phone: [facility] 12-22-2021 02:08-0400 Respiratory rate 16 /min Sharon Gonzalez MD Work Phone: [facility] 12-22-2021 02:08-0400 SaO2% (BldA) [Mass fraction] 96 % Sharon Gonzalez MD Work Phone: [facility] 12-22-2021 02:08-0400 Systolic blood pressure 108 mm[Hg] Sharon Gonzalez MD Work Phone: [facility] 12-21-2021 23:52-0400 Body height 175.3 cm Sharon Gonzalez MD Work Phone: [facility] 12-21-2021 23:52-0400 Body mass index (BMI) [Ratio] 25.84 kg/m2 Sharon Gonzalez MD Work Phone: [facility] 12-21-2021 23:52-0400 Body temperature 97.9 [degF] Sharon Gonzalez MD Work Phone: [facility] 12-21-2021 23:52-0400 Body weight 79.38 kg Sharon Gonzalez MD Work Phone: [facility] 11-01-2021 08:41-0400 Diastolic blood pressure 77 mm[Hg] Dante Kim MD Work Phone: [facility] 11-01-2021 08:41-0400 Heart rate 75 /min Dante Kim MD Work Phone: [facility] 11-01-2021 08:41-0400 Respiratory rate 16 /min Dante Kim MD Work Phone: [facility] 11-01-2021 08:41-0400 SaO2% (BldA) [Mass fraction] 97 % Dante Kim MD Work Phone: [facility] 11-01-2021 08:41-0400 Systolic blood pressure 112 mm[Hg] Dante Kim MD Work Phone: [facility] 10-31-2021 19:13-0400 Body height 177.8 cm Dante Kim MD Work Phone: [facility] 10-31-2021 19:13-0400 Body mass index (BMI) [Ratio] 27.26 kg/m2 Dante Kim MD Work Phone: [facility] 10-31-2021 19:13-0400 Body temperature 98.49 [degF] Dante Kim MD Work Phone: [facility] 10-31-2021 19:13-0400 Body weight 86.18 kg Dante Kim MD Work Phone: [facility] 10-29-2021 07:38-0400 Body temperature 97.81 [degF] Lisa Miguel Angel DO Work Phone: [facility] 10-29-2021 07:38-0400 Diastolic blood pressure 79 mm[Hg] Lisa Miguel Angel DO Work Phone: [facility] 10-29-2021 07:38-0400 Heart rate 80 /min Lisa Miguel Angel DO Work Phone: [facility] 10-29-2021 07:38-0400 Respiratory rate 18 /min Lisa Miguel Angel DO Work Phone: [facility] 10-29-2021 07:38-0400 SaO2% (BldA) [Mass fraction] 96 % Lisa Miguel Angel DO Work Phone: [facility] 10-29-2021 07:38-0400 Systolic blood pressure 123 mm[Hg] Lisa Miguel Angel DO Work Phone: [facility] 10-25-2021 13:55-0400 Body height 170.2 cm Lisa Miguel Angel DO Work Phone: [facility] 10-21-2021 00:57-0400 Body mass index (BMI) [Ratio] 37.58 kg/m2 Lisa Miguel Angel DO Work Phone: [facility] 10-21-2021 00:57-0400 Body weight 108.86 kg Lisa Michelle DO Work Phone: [facility] 07-13-2020 13:21-0500 BMI (Body Mass Index) 40.47 kg/m2 Monika Staley [facility] Work Phone: 07-13-2020 13:21-0500 Body Temperature 98 [degF] Monika Staley [facility] Work Phone: 07-13-2020 13:21-0500 Body weight 124.31 kg Monika Staley [facility] Work Phone: 07-13-2020 13:21-0500 BP Diastolic 78 mm[Hg] Monika Staley [facility] Work Phone: 07-13-2020 13:21-0500 BP Systolic 138 mm[Hg] Monika Staley [facility] Work Phone: 07-13-2020 13:21-0500 [...] 04-13-2020 15:33-0500 Height 175.26 cm Wing Ritter [facility] Work Phone: 04-13-2020 15:33-0500 Pulse (Heart Rate) 98 /min Wing Ritter [facility] Work Phone: 04-13-2020 15:33-0500 Pulse Oximetry 98 % Wing Ritter [facility] Work Phone: Comment on above: Source: 04-13-2020 15:33-0500 0 1 Wing Ritter [facility] Work Phone: Comment on above: Pain Scale 01-20-2020 16:39-0400 Body height 175.26 cm Monika Staley MD [facility] [address] [place] Work Phone: 01-20-2020 16:39-0400 Body mass index (BMI) [Ratio] 39.28 kg/m2 Monika Staley MD WH-Qwgucngvrd-Snj [facility] [address] [place] Work Phone: 01-20-2020 16:39-0400 Body surface area Derived from formula 2.33 m2 Monika Staley MD VG-Ropfesocdk-Sls [facility] [address] [place] Work Phone: 01-20-2020 16:39-0400 Body weight 120.66 kg Monika Staley MD -[facility] [address] [place] Work Phone: 01-20-2020 16:39-0400 Diastolic blood pressure 84 mm[Hg] Monika Staley MD MR-Ramflggcql-Nwq [facility] [address] [place] Work Phone: Comment on above: Location: [facility]; Position: Sitting 01-20-2020 16:39-0400 Heart rate 80 /min Monika Staley MD -[facility] [address] [place] Work Phone: 01-20-2020 16:39-0400 SaO2% (BldA) [Mass fraction] 100 % Monika Staley MD TZ-Jlseimcsrj-Mnn [facility] [address] [place] Work Phone: Comment on above: Source: 01-20-2020 16:39-0400 Systolic blood pressure 144 mm[Hg] Monika Staley MD EZ-Kwucjjiwgx-Ptu [facility] [address] [place] Work Phone: Comment on above: Location: [facility]; Position: Sitting 11-06-2019 15:29-0400 BMI (Body Mass Index) 38.31 kg/m2 [facility] Work Phone: 11-06-2019 15:29-0400 Body Temperature 97.6 [degF] Monika Staley [facility] Work Phone: 11-06-2019 15:29-0400 Body weight 117.66 kg Monika Staley [facility] Work Phone: 11-06-2019 15:29-0400 BP Diastolic 62 mm[Hg] Monika Staley [facility] Work Phone: 11-06-2019 15:29-0400 BP Systolic 140 mm[Hg] Monika Staley [facility] Work Phone: 11-06-2019 [id number] BSA (Body Surface Area) 2.31 m2 Monika Staley [facility] Work Phone: 11-06-2019 15:290400 Height 175.26 cm Monika Staley [facility] Work Phone: Encounters Encounter Date Encounter Type Care Provider Facility Start: 01-22-2025 ambulatory Mahaveer Mukka flash OLS Facility:[facility] Start: 01-19-2025 ambulatory Carlos Quickros OLS Faci lity:[facility] Start: 01-15-2025 ambulatory Mahaveer Mukka flash OLS Facility:[facility] Start: 01-12-2025 ambulatory Mahaveer Mukka flash OLS Facility:[facility] Start: 01-08-2025 ambulatory Mahaveer Mukka flash OLS Facility:[facility] Start: 01-06-2025 ambulatory Mahaveer Mukka flash OLS Facility:[facility] Start: 01-01-2025 ambulatory Mahaveer Mukka flash OLS Facility:[facility] Start: 12-29-2024 ambulatory Peter Katsaros OLS Faci lity:[facility] Start: 12-26-2024 ambulatory Mahaveer Mukka flash OLS Facility:[facility] Start: 12-25-2024 ambulatory Mahaveer Mukka flash OLS Facility:[facility] Start: 12-24-2024 ambulatory Peter Katsaros OLS Faci lity:[facility] Start: 12-22-2024 ambulatory Mahaveer Mukka flash OLS Facility:[facility] Start: 12-18-2024 ambulatory Mahaveer Mukka flash OLS Facility:[facility] Start: 12-15-2024 ambulatory Mahaveer Mukka flash OLS Facility:[facility] Start: 12-11-2024 ambulatory Peter Katsaros OLS Faci lity:[facility] Start: 12-08-2024 ambulatory Mahaveer Mukka flash OLS Facility:[facility] Start: 12-04-2024 ambulatory Mahaveer Mukka flash OLS Facility:[facility] Start: 12-02-2024 ambulatory Mahaveer Mukka flash OLS Facility:[facility] Start: 12-01-2024 ambulatory Peter Katsaros OLS Faci lity:[facility] Start: 11-28-2024 ambulatory Peter Katsaros OLS Faci lity:[facility] Start: 11-27-2024 ambulatory Mahaveer Mukka flash OLS Facility:[facility] Start: 11-24-2024 ambulatory Mahaveer Mukka flash OLS Facility:[facility] Start: 11-20-2024 ambulatory Mahaveer Mukka flash OLS Facility:[facility] Start: 11-17-2024 ambulatory Mahaveer Mukka flash OLS Facility:[facility] Start: 11-13-2024 ambulatory Mahaveer Mukka flash OLS Facility:[facility] Start: 11-10-2024 ambulatory Mahaveer Mukka flash OLS Facility:[facility] Start: 11-06-2024 ambulatory Mahaveer Mukka flash OLS Facility:[facility] Start: 11-03-2024 ambulatory Peter Katsaros OLS Faci lity:[facility] Start: 10-30-2024 ambulatory Mahaveer Mukka flash OLS Facility:[facility] Start: 10-30-2024 [facility] Start: 10-27-2024 ambulatory Mahaveer Mukka flash OLS Facility:[facility] Start: 10-27-2024 Registered Referred Karon casillas MD -[employer] Start: 10-23-2024 ambulatory Karon jack vidales OLS Facility:[facility] Start: 10-23-2024 Registered Referred Karon casillas MD -[employer] Start: 10-20-2024 ambulatory Karon jack vidales OLS Facility:[facility] Start: 10-20-2024 Registered Referred Karon casillas MD -[employer] Start: 10-16-2024 ambulatory Karon jack vidales OLS Facility:[facility] Start: 10-16-2024 [facility] Start: 10-13-2024 ambulatory Carlos NOVAK Faci lity:[facility] Start: 10-13-2024 Registered Referred Carlos Cavazos - [employer] Start: 10-09-20[facility] Start: 10-09-2024 Registered Referred Karon casillas MD -[employer] Start: 10-06-2024 ambulatory Carlos NOVAK Faci lity:[facility] Start: 10-06-2024 Registered Referred Carlos Cavazos - [employer] Start: 10-02-2024 ambulatory Karon jack vidales OLS Facility:[facility] Start: 10-02-2024 [facility] Start: 09-30-2024 End: 09-30-[address] Monika Staley MD Work Phone: [facility] Work Phone: Start: 09-30-2024 End: 09-30-2024 [facility]ed [facility] Start: 09-30-2024 [facility] Start: 09-30-2024 End: 09-30-2024 ambulatory Mahamber NOVAK Facility:[facility] Start: 09-25-2024 ambulatory Karon vidales OLS Facility:[facility] Start: 09-25-2024 Registered Referred Karon casillas MD -[employer] Start: 09-22-2024 End: 09-22-[address] Monika Staley MD Work Phone: -[employer] Start: 09-22-2024 End: 09-22-2024 Departed Referred Karon Corrales MD -[employer] Start: 09-22-2024 Registered Referred Karon casillas MD -[employer] Start: 09-22-2024 End: 09-22-2024 ambulatory Karon Corrales OLS Facility:[facility] Start: 09-18-2024 End: 09-18-[address] Monika Staley MD Work Phone: -[employer] Start: 09-18-2024 End: 09-18-2024 Departed Referred Karon Corrales MD -[employer] Start: 09-18-2024 Registered Referred Karon casillas MD -[employer] Start: 09-18-2024 End: 09-18-2024 ambulatory Karon Corrales OLS Facility:[facility] Start: 09-15-2024 End: 09-15-[address] Monika Staley MD Work Phone: [facility] Work Phone: Start: 09-15-2024 End: 09-15-2024 Departed Referred Carlos Cavazos -[employer] Start: 09-15-2024 Registered Referred Carlos Cavazos - [employer] Start: 09-15-2024 End: 09-15-2024 ambulatory Carlos Cavazos OLS Facility:[facility] Start: 09-11-2024 ambulatory Monika Rosasi ty:[facility] Start: 09-11-2024 Registered Referred Karon casillas MD -[employer] Start: 09-08-2024 End: 09-08-[address] Monika Staley MD Work Phone: [facility] Work Phone: Start: 09-08-2024 End: 09-08-2024 Departed Referred Karon Corrales MD -[employer] Start: 09-08-2024 Registered Referred Karon casillas MD -[employer] Start: 09-08-2024 End: 09-08-2024 ambulatory Karon NOVAK Facility:[facility] Start: 09-04-2024 End: 09-04-2024 Departed Referred Carlos Cavazos -[employer] Start: 09-04-2024 Registered Referred Carlos Lópezsaviri - [employer] Start: 09-04-2024 End: 09-04-2024 ambulatory Carlos NOVAK Facility:[facility] Start: 09-01-2024 End: 09-01-[address] Monika Staley MD Work Phone: [facility] Work Phone: Start: 09-01-2024 End: 09-01-2024 Departed Referred Carlos Cavazos -[employer] Start: 09-01-2024 Registered Referred Carlos Lópezsaros - [employer] Start: 09-01-2024 End: 09-01-2024 ambulatory Carlos NOVAK Facility:[facility] Start: 08-28-2024 End: 08-28-[address] Monika Staley MD Work Phone: [facility] Work Phone: Start: 08-28-2024 End: 08-28-2024 Departed Referred Carlos Cavazos -[employer] Start: 08-28-2024 Registered Referred Carlos Lópezsaviri - [employer] Start: 08-28-2024 End: 08-28-2024 ambulatory Carlos Kenny OLS Facility:[facility] Start: 08-25-2024 End: 08-25-[address] Monika Staley MD Work Phone: [facility] Work Phone: Start: 08-25-2024 End: 08-25-2024 Departed Referred Karon Corrales MD -[employer] Start: 08-25-2024 Registered Referred Karon casillas MD -[employer] Start: 08-25-2024 End: 08-25-2024 ambulatory Karon NOVAK Facility:[facility] Start: 08-21-2024 End: 08-21-[address] Monika Staley MD Work Phone: [facility] Work Phone: Start: 08-21-2024 End: 08-21-2024 Departed Referred Karon Corrales MD -[employer] Start: 08-21-2024 Registered Referred Karon casillas MD -[employer] Start: 08-21-2024 End: 08-21-2024 ambulatory Karon NOVAK Facility:[facility] Start: 08-18-2024 End: 08-18-[address] Monika Staley MD Work Phone: [facility] Work Phone: Start: 08-18-2024 End: 08-18-2024 Departed Referred Karon Corrales MD -[employer] Start: 08-18-2024 Registered Referred Karon casillas MD -[employer] Start: 08-18-2024 End: 08-18-2024 ambulatory Karon NOVAK Facility:[facility] Start: 08-14-2024 End: 08-14-[address] Monika Staley MD Work Phone: [facility] Work Phone: Start: 08-14-2024 End: 08-14-2024 Departed Referred Karon Corrales MD -[employer] Start: 08-14-2024 Registered Referred Karon casillas MD -[employer] Start: 08-14-2024 End: 08-14-2024 ambulatory Karon NOVAK Facility:[facility] Start: 08-11-2024 End: 08-11-2024 Departed Referred Karon Corrales MD -[employer] Start: 08-11-2024 Registered Referred Karon casillas MD -[employer] Start: 08-11-2024 End: 08-11-2024 ambulatory Karon NOVAK Facility:[facility] Start: 08-07-2024 End: 08-07-2024 Departed Referred Carlos Cavazos -[employer] Start: 08-07-2024 Registered Referred Carlos Lópezsaviri - [employer] Start: 08-07-2024 End: 08-07-2024 ambulatory Carlos NOVAK Facility:[facility] Start: 08-04-2024 End: 08-04-[address] Monika Staley MD Work Phone: [facility] Work Phone: Start: 08-04-2024 End: 08-04-2024 Departed Referred Carlos Cavazos -[employer] Start: 08-04-2024 Registered Referred Carlos Cavazos - [employer] Start: 08-04-2024 End: 08-04-2024 ambulatory Carlos NOVAK Facility:[facility] Start: 07-31-2024 End: 07-31-[address] Monika Staley MD Work Phone: [facility] Work Phone: Start: 07-31-2024 End: 07-31-2024 Departed Referred Karon Corrales MD -[employer] Start: 07-31-2024 Registered Referred Karon casillas MD -[employer] Start: 07-31-2024 End: 07-31-2024 ambulatory Karon NOVAK Facility:[facility] Start: 07-28-2024 End: 07-28-[address] Monika Staley MD Work Phone: [facility] Work Phone: Start: 07-28-2024 End: 07-28-2024 Departed Referred Karon Corrales MD -[employer] Start: 07-28-2024 Registered Referred Karon casillas MD -[employer] Start: 07-28-2024 End: 07-28-2024 ambulatory Karon NOVAK Facility:[facility] Start: 07-25-2024 End: 07-25-[address] Monika Staley MD Work Phone: [facility] Work Phone: Start: 07-25-2024 End: 07-25-2024 Departed Referred Carlos Cavazos -[employer] Start: 07-25-2024 Registered Referred Carlos Cavazos - [employer] Start: 07-24-2024 End: 07-25-[address] Monika Staley MD Work Phone: [facility] Work Phone: Start: 07-24-2024 End: 07-24-2024 Departed Referred Karon Corrales MD -[employer] Start: 07-24-2024 Registered Referred Karon casillas MD -[employer] Start: 07-24-2024 End: 07-24-2024 ambulatory Karon NOVAK Facility:[facility] Start: 07-21-2024 End: 07-21-[address] Monika Staley MD Work Phone: [facility] Work Phone: Start: 07-21-2024 End: 07-21-2024 Departed Referred Karon Corrales MD -[employer] Start: 07-21-2024 Registered Referred Karon casillas MD -[employer] Start: 07-21-2024 End: 07-21-2024 [facility]ulatory [facility] Facility:[facility] Start: 07-17-2024 End: 07-17-[address] Monika Staley MD Work Phone: [facility] Work Phone: Start: 07-17-2024 End: 07-17-2024 Departed Referred Karon Corrales MD -[employer] Start: 07-17-2024 Registered Referred Karon casillas MD -[employer] Start: 07-17-2024 End: 07-17-2024 ambulatory Carlaraynoe Hernandezinga SCARLET Facility:[facility] Start: 07-14-2024 End: 07-14-[address] Monika Staley MD Work Phone: [facility] Work Phone: Start: 07-14-2024 End: 07-14-2024 Departed Referred Carlos [facility] [employer] Start: 07-14-2024 Registered Referred Carlos Cavazos - [employer] Start: 07-14-2024 End: 07-14-2024 ambulatory Carlos NOVAK Facility:[facility] Start: 07-11-2024 End: 07-11-[address] Monika Staley MD Work Phone: [facility] Work Phone: Start: 07-11-2024 End: 07-11-2024 Departed Referred Carlos [facility] [employer] Start: 07-11-2024 Registered Referred Carlos Cavazos - [employer] Start: 07-11-2024 End: 07-11-2024 ambulatory Carlos NOVAK Facility:[facility] Start: 07-07-2024 End: 07-07-[address] Monika Staley MD Work Phone: [facility] Work Phone: Start: 07-07-2024 End: 07-07-2024 Departed Referred Karon Corrales MD -[employer] Start: 07-07-[address] [facility] -[employer] Start: 07-07-2024 End: 07-07-2024 ambulatory Karon NOVAK Facility:[facility] Start: 07-03-2024 End: 07-03-[address] Monika Staley MD Work Phone: [facility] Work Phone: Start: 07-03-2024 End: 07-03-2024 Departed Referred Kvng Crisostomo MD -[employer] Start: 07-03-2024 Registered Referred Kvng Crisostomo MD -[employer] Start: 07-03-2024 End: 07-03-2024 ambulatory Kvng NOVAK Facility:[facility] Start: 06-30-2024 End: 06-30-[address] Monika Staley MD Work Phone: [facility] Work Phone: Start: 06-30-2024 End: 06-30-2024 Departed Referred Kvng Crisostomo MD -[employer] Start: 06-30-2024 Registered Referred Kvng Crisostomo MD -[employer] Start: 06-30-2024 End: 06-30-2024 ambulatory Kvng NOVAK Facility:[facility] Start: 06-26-2024 ambulatory Kvng NOVAK Fac ility:[facility] Start: 06-26-2024 Registered Referred Kvng Crisostomo MD -[employer] Start: 06-23-2024 End: 06-23-[address] Monika Staley MD Work Phone: [facility] Work Phone: Start: 06-23-2024 End: 06-23-2024 Departed Referred Carlos Cavazos -[employer] Start: 06-23-2024 Registered Referred Carlos Cavazos - [employer] Start: 06-23-2024 End: 06-23-2024 ambulatory Carlos NOVAK Facility:[facility] Start: 06-19-2024 End: 06-19-[address] Monika Staley MD Work Phone: [facility] Work Phone: Start: 06-19-2024 End: 06-19-2024 Departed Referred Kvng Crisostomo MD -[employer] Start: 06-19-2024 Registered Referred Kvng Crisostomo MD -[employer] Start: 06-19-2024 End: 06-19-2024 ambulatory Kvng NOVAK Facility:[facility] Start: 06-16-2024 End: 06-16-[address] Monika Staley MD Work Phone: [facility] Work Phone: Start: 06-16-2024 End: 06-16-2024 Departed Referred Kvng Crisostomo MD -[employer] Start: 06-16-2024 Registered Referred Kvng Crisostomo MD -[employer] Start: 06-16-2024 End: 06-16-2024 ambulatory Kvng NOVAK Facility:[facility] Start: 06-12-2024 End: 06-12-[address] Monika Staley MD Work Phone: [facility] Work Phone: Start: 06-12-2024 End: 06-12-2024 Departed Referred Kvng Crisostomo MD -[employer] Start: 06-12-2024 Registered Referred Kvng Crisostomo MD -[employer] Start: 06-12-2024 End: 06-12-2024 ambulatory Kvng NOVAK Facility:[facility] Start: 06-09-2024 End: 06-09-[address] Monika Staley MD Work Phone: [facility] Work Phone: Start: 06-09-2024 End: 06-09-2024 Departed Referred Carlos Cavazos -[employer] Start: 06-09-2024 Registered Referred Carlos Cavazos - [employer] Start: 06-09-2024 End: 06-09-2024 ambulatory Carlos NOVAK Facility:[facility] Start: 06-05-2024 End: 06-05-[address] Monika Staley MD Work Phone: [facility] Work Phone: Start: 06-05-2024 End: 06-05-2024 Departed Referred Kvng Crisostomo MD -[employer] Start: 06-05-2024 End: 06-05-2024 ambulatory Kvng NOVAK Facility:[facility] Start: 06-02-2024 End: 06-02-[address] Monika Staley MD Work Phone: [facility] Work Phone: Start: 06-02-2024 End: 06-02-2024 Departed Referred Kvng Crisostomo MD -[employer] Start: 06-02-2024 Registered Referred Kvng Crisostomo MD -[employer] Start: 06-02-2024 End: 06-02-2024 ambulatory Kvng NOVAK Facility:[facility] Start: 05-29-2024 End: 05-29-[address] Monika Staley MD Work Phone: [facility] Work Phone: Start: 05-29-2024 End: 05-29-2024 Departed Referred Kvng Crisostomo MD -[employer] Start: 05-29-2024 Registered Referred Kvng Crisostomo MD -[employer] Start: 05-29-2024 End: 05-29-2024 ambulatory Kvng NOVAK Facility:[facility] Start: 05-26-2024 End: 05-26-[address] Monika Staley MD Work Phone: [facility] Work Phone: Start: 05-26-2024 End: 05-26-2024 Departed Referred Carlos Cavazos -[employer] Start: 05-26-2024 Registered Referred Carlos Cavazos - [employer] Start: 05-26-2024 End: 05-26-2024 ambulatory Carlos NOVAK Facility:[facility] Start: 05-22-2024 ambulatory Kvng NOVAK Fac ility:[facility] Start: 05-22-2024 Registered Referred Kvng Crisostomo MD -[employer] Start: 05-20-2024 End: 05-20-2024 Departed Referred Kvng Crisostomo MD -[employer] Start: 05-19-2024 End: 05-20-2024 ambulatory Kvng NOVAK Facility:[facility] Start: 05-19-2024 Registered Referred Kvng Crisostomo MD -[employer] Start: 05-15-2024 End: 05-15-2024 Departed Referred Kvng Crisostomo MD -[employer] Start: 05-15-2024 End: 05-15-2024 ambulatory Kvng NOVAK Facility:[facility] Start: 05-12-2024 End: 05-12-2024 Departed Referred [facility] Start: 05-12-2024 End: 05-12-2024 ambulatory Cralos NOVAK Facility:[facility] Start: 05-09-2024 End: 05-09-2024 Departed Referred Kvng Crisostomo MD -[employer] Start: 05-09-2024 End: 05-09-2024 ambulatory Elizabethmilton Andressa NOVAK Facility:[facility] Start: 05-08-2024 End: 05-08-2024 Departed Referred Kvng Crisostomo MD -[employer] Start: 05-08-2024 End: 05-08-2024 ambulatory Elizabethmilton Andressa NOVAK Facility:[facility] Start: 05-05-2024 End: 05-05-2024 Departed Referred Kvng Crisostomo MD -[employer] Start: 05-05-2024 End: 05-05-2024 ambulatory Vicentesigifredokarolmilton Andressa NOVAK Facility:[facility] Start: 05-01-2024 End: 05-01-2024 Departed Referred Kvng Crisostomo MD -[employer] Start: 05-01-2024 End: 05-01-2024 ambulatory Vicenterocio Andressa NOVAK Facility:[facility] Start: 04-28-2024 End: 04-28-2024 Departed Referred Carlos Cavazos -[employer] Start: 04-28-2024 End: 04-28-2024 ambulatory Carlos NOVAK Facility:[facility] Start: 04-24-2024 End: 04-24-2024 Departed Referred [facility] [employer] Start: 04-24-2024 End: 04-24-2024 ambulatory Elizabethmilton Andressa NOVAK Facility:[facility] Start: 04-21-2024 End: 04-21-2024 Departed Referred Carlos [facility] [employer] Start: 04-21-2024 End: 04-21-2024 ambulatory Carlos NOVAK Facility:[facility] Start: 04-17-2024 ambulatory Vicenterocio Andressa NOVAK Fac ility:[facility] Start: 04-17-2024 Registered Referred [facility] [employer] Start: 04-14-2024 ambulatory Avisgerson Andressa NOVAK Fac ility:[facility] Start: 04-14-2024 Registered Referred Kvng Crisostomo MD -[employer] Start: 04-10-2024 End: 04-10-2024 Departed Referred Kvng Crisostomo MD -[employer] Start: 04-10-2024 End: 04-10-2024 ambulatory Kvng NOVAK Facility:[facility] Start: 04-07-2024 End: 04-07-2024 Departed Referred Carlos Cavazos [employer] Start: 04-07-2024 End: 04-07-2024 ambulatory [facility] Facility:[facility] Start: 04-04-2024 ambulatory Kvng Andressa NOVAK Fac ility:[facility] Start: 04-04-2024 Registered Referred Kvng Crisostomo MD -[employer] Start: 03-31-2024 End: 03-31-2024 Departed Referred Carlos Cavazos [employer] Start: 03-31-2024 End: 03-31-2024 ambulatory [facility] Facility:[facility] Start: 03-27-2024 End: 03-27-2024 [facility]ed [facility] Start: 03-27-2024 End: 03-27-2024 ambulatory [facility] Facility:[facility] Start: 03-24-2024 End: 03-24-2024 Departed Referred Kvng Crisostomo MD -[employer] Start: 03-24-2024 End: 03-24-2024 ambulatory Kvng NOVAK Facility:[facility] Start: 03-20-2024 End: 03-20-2024 [facility]ed [facility] Start: 03-20-2024 End: 03-20-2024 ambulatory [facility] Facility:[facility] Start: 03-19-2024 End: 03-19-2024 Departed Referred Kvng Crisostomo MD -[employer] Start: 03-19-2024 End: 03-19-2024 ambulatory Elizabethmilton Jonesur OLS Facility:[facility] Start: 03-18-2024 End: 03-18-2024 Departed Referred [facility] Start: 03-18-2024 End: 03-18-2024 ambulatory [facility] Facility:[facility] Start: 03-17-2024 End: 03-17-2024 Departed Referred [facility] Start: 03-17-2024 End: 03-17-2024 ambulatory [facility] Facility:[facility] Start: 03-14-2024 End: 03-14-2024 Departed Referred Carlos Abdelrahmanviri -[employer] Start: 03-14-2024 End: 03-14-2024 ambulatory Carlos NOVAK Facility:[facility] Start: 03-13-2024 End: 03-13-2024 Departed Referred [facility] Start: 03-13-2024 End: 03-13-2024 ambulatory [facility] Facility:[facility] Start: 03-10-2024 End: 03-10-2024 ambulatory [facility] Facility:[facility] Start: 03-06-2024 End: 03-06-2024 ambulatory [facility] Facility:[facility] Start: 03-03-2024 End: 03-03-2024 ambulatory [facility] Facility:[facility] Start: 02-28-2024 End: 02-28-2024 ambulatory [facility] Facility:[facility] Start: 02-25-2024 End: 02-25-2024 ambulatory Carlos NOVAK Facility:[facility] Start: 02-21-2024 End: 02-21-2024 ambulatory [facility] Facility:[facility] Start: 02-18-2024 End: 02-18-2024 ambulatory [facility] Facility:[facility] Start: 02-14-2024 End: 02-14-2024 ambulatory [facility] Facility:[facility] Start: 02-12-2024 End: 02-12-2024 ambulatory Peter Katsaros OLS Facility:[facility] Start: 02-11-2024 End: 02-11-[address] [facility] Facility:[facility] Start: 02-08-2024 End: 02-08-2024 ambulatory Peter Maribelsaros OLS Facility:[facility] Start: 02-07-2024 End: 02-07-2024 ambulatory Peter Katsaros OLS Facility:[facility] Start: 02-04-2024 End: 02-04-2024 ambulatory Peter Katsaros OLS Facility:[facility] Start: 02-01-2024 ambulatory Peter Katsaros OLS Faci lity:[facility] Start: 01-30-2024 End: 01-30-2024 ambulatory Peter Maribelsaros OLS Facility:[facility] Start: 01-29-2024 End: 01-29-2024 [facility] Facility:[facility] Start: 09-13-2023 End: 09-13-2023 ambulatory [facility] Start: 09-13-2023 End: 09-13-2023 Office outpatient visit 25 minutes Rebecca Buck MD Work Phone: [facility] Comment on above: Left flank pain (Christina magui Dx); BPH with urinary obstruction; History of kidney stones Start: 09-06-2023 End: 09-07-2023 ambulatory [facility] Start: 09-06-2023 End: 09-06-2023 Subsequent hospital visit by physician Rebecca Buck MD Work Phone: [facility] Imaging Comment on above: Left flank pain; Calculus of ureter Start: 08-31-2023 ambulatory Eloise Armendariz Clinical Communication Start: 08-31-2023 Patient encounter procedure Eloise Armendariz Clinical Communication Start: 08-21-2023 Telephone encounter Rebecca Buck MD Work Phone: [facility] Clinical Communication Comment on above: CT appt Boaz advice Start: 08-21-2023 Registered Referred [facility] Start: 08-13-2023 End: 08-13-2023 ambulatory [facility] Start: 08-13-2023 End: 08-13-2023 Office outpatient new 45 minutes Rebecca Buck MD Work Phone: [facility] Comment on above: Left flank pain (Christina magui Dx); Calculus of ureter; Disease of prostate; BPH with urinary obstruction Start: 08-03-2023 End: 08-03-2023 ambulatory [facility] Work Phone: Start: 08-03-2023 End: 08-03-2023 [facility] Start: 07-20-2023 End: 07-20-2023 ambulatory [facility] Work Phone: Start: 07-20-2023 End: 07-20-2023 [facility] Start: 07-20-2023 [facility] [employer] Start: 07-18-2023 End: 07-18-2023 ambulatory [facility] Work Phone: Start: 07-18-2023 End: 07-18-2023 [facility] Start: 07-18-2023 [facility] Start: 07-16-2023 End: 07-16-2023 ambulatory [facility] Work Phone: Start: 07-16-2023 End: 07-16-2023 [facility] Start: 07-16-2023 [facility] Start: 07-13-2023 End: 07-13-2023 ambulatory [facility] Work Phone: Start: 07-13-2023 End: 07-13-2023 [facility] Start: 07-13-2023 [facility] Start: 07-12-2023 End: 07-12-2023 ambulatory [facility] Work Phone: Start: 07-12-2023 End: 07-12-2023 [facility] [employer] Start: 07-12-2023 [facility] Start: 07-05-2023 End: 07-05-2023 ambulatory [facility] Work Phone: Start: 07-05-2023 End: 07-05-2023 [facility] Start: 07-05-2023 [facility] Start: 07-02-2023 [facility] Start: 06-28-2023 End: 06-28-2023 ambulatory [facility] Work Phone: Start: 06-28-2023 End: 06-28-2023 [facility] Start: 06-28-2023 [facility] Start: 06-25-2023 Telephone encounter Rebecca Buck MD Work Phone: [facility] Start: 06-25-2023 End: 06-25-2023 ambulatory [facility] Work Phone: Start: 06-25-2023 End: 06-25-2023 [facility] [employer] Start: 06-25-2023 [facility] Start: 06-21-2023 End: 06-21-2023 ambulatory [facility] Work Phone: Start: 06-21-2023 End: 06-21-2023 [facility] [employer] Start: 06-21-2023 [facility] Start: 06-13-2023 End: 06-13-2023 ambulatory [facility] Work Phone: Start: 06-13-2023 End: 06-13-2023 [facility] Start: 06-06-2023 End: 06-06-2023 ambulatory [facility] Work Phone: Start: 06-06-2023 End: 06-06-2023 [facility] Start: 06-06-2023 [facility] Start: 05-23-2023 End: 05-23-2023 ambulatory [facility] Work Phone: Start: 05-23-2023 End: 05-23-2023 [facility] Start: 05-09-2023 End: 05-09-2023 [facility] Start: 05-09-2023 [facility] Start: 04-23-2023 End: 04-23-2023 [facility] Start: 04-09-2023 End: 04-09-2023 ambulatory [facility] Work Phone: Start: 04-09-2023 End: 04-09-2023 [facility] Start: 04-09-2023 [facility] Start: 04-02-2023 End: 04-02-2023 ambulatory [facility] Work Phone: Start: 04-02-2023 End: 04-02-2023 [facility] Start: 04-02-2023 [facility] Start: 03-26-2023 End: 03-26-2023 ambulatory [facility] Work Phone: Start: 03-26-2023 End: 03-26-2023 [facility] Start: 03-26-2023 Registered Referred [facility] Start: 03-22-2023 End: 03-22-2023 ambulatory [facility] Work Phone: Start: 03-22-2023 End: 03-22-2023 [facility] Start: 03-22-2023 [facility] Start: 03-08-2023 End: 03-08-2023 ambulatory [facility] Work Phone: Start: 03-08-2023 End: 03-08-2023 [facility] Start: 02-22-2023 End: 02-22-2023 ambulatory [facility] Work Phone: Start: 02-22-2023 End: 02-22-2023 [facility] Start: 02-22-2023 [facility] Start: 02-15-2023 End: 02-15-2023 ambulatory [facility] Work Phone: Start: 02-15-2023 End: 02-15-2023 [facility] Start: 02-15-2023 [facility] Start: 02-08-2023 End: 02-08-2023 ambulatory [facility] Work Phone: Start: 02-08-2023 End: 02-08-2023 [facility] Start: 01-31-2023 End: 01-31-2023 ambulatory [facility] Work Phone: Start: 01-31-2023 End: 01-31-2023 [facility] Start: 01-31-2023 [facility] Start: 01-29-2023 End: 01-29-2023 [facility] Start: 01-29-2023 Registered Referred [facility] Start: 01-26-2023 End: 01-26-2023 [facility] Start: 01-26-2023 Registered Referred [facility] Start: 01-24-2023 End: 01-24-2023 [facility] Start: 01-24-2023 [facility] Start: 01-22-2023 End: 01-22-2023 ambulatory [facility] Work Phone: Start: 01-22-2023 End: 01-22-2023 [facility] Start: 01-22-2023 [facility] Start: 01-10-2023 End: 01-10-2023 ambulatory [facility] Work Phone: Start: 01-10-2023 End: 01-10-2023 [facility] Start: 01-10-2023 [facility] Start: 12-27-2022 End: 12-27-2022 ambulatory [facility] Work Phone: Start: 12-27-2022 End: 12-27-2022 [facility] Start: 12-27-2022 [facility] Start: 12-21-2022 End: 12-21-2022 ambulatory [facility] Work Phone: Start: 12-21-2022 End: 12-21-2022 [facility] Start: 12-21-2022 [facility] Start: 12-14-2022 End: 12-14-2022 ambulatory [facility] Work Phone: Start: 12-14-2022 End: 12-14-2022 [facility] Start: 12-14-2022 [facility] Start: 12-07-2022 End: 12-07-2022 ambulatory [facility] Work Phone: Start: 12-07-2022 End: 12-07-2022 [facility] Start: 12-07-2022 [facility] Start: 11-24-2022 End: 11-24-2022 ambulatory [facility] Work Phone: Start: 11-24-2022 End: 11-24-2022 [facility] Start: 11-24-2022 [facility] Start: 11-23-2022 End: 11-23-2022 ambulatory [facility] Work Phone: Start: 11-23-2022 End: 11-23-2022 [facility] Start: 11-23-2022 [facility] Start: 11-22-2022 End: 11-22-2022 ambulatory [facility] Work Phone: Start: 11-22-2022 End: 11-22-2022 [facility] Start: 11-22-2022 [facility] Start: 11-09-2022 End: 11-09-2022 ambulatory [facility] Work Phone: Start: 11-09-2022 End: 11-09-2022 [facility] Start: 11-09-2022 Registered [facility] [employer] Start: 10-26-2022 End: 10-26-2022 Departed Referred [facility] Start: 10-26-2022 Registered Referred [facility] Start: 10-12-2022 End: 10-12-2022 ambulatory [facility] Work Phone: Start: 10-12-2022 End: 10-12-2022 Departed Referred [facility] Start: 10-12-2022 Registered Referred [facility] Start: 10-05-2022 End: 10-05-2022 Departed Referred [facility] Start: 10-05-2022 Registered Referred [facility] Start: 09-28-2022 End: 09-28-2022 ambulatory [facility] Work Phone: Start: 09-28-2022 End: 09-28-2022 Departed Referred [facility] Start: 09-14-2022 End: 09-14-2022 Departed Referred [facility] Start: 08-31-2022 End: 08-31-2022 [facility] Start: 08-31-2022 Registered Referred [facility] Start: 08-23-2022 End: 08-23-2022 ambulatory [facility] Work Phone: Start: 08-23-2022 End: 08-23-2022 [facility] Start: 08-23-2022 Registered Referred [facility] Start: 08-17-2022 End: 08-17-2022 ambulatory [facility] Work Phone: Start: 08-17-2022 End: 08-17-2022 [facility] Start: 08-17-2022 [facility] Start: 08-14-2022 End: 08-14-2022 ambulatory [facility] Work Phone: Start: 08-14-2022 End: 08-14-2022 Departed Referred [facility] Start: 08-14-2022 [facility] Start: 07-31-2022 End: 07-31-2022 ambulatory [facility] Work Phone: Start: 07-31-2022 End: 07-31-2022 [facility] Start: 07-31-2022 Registered [facility] Start: 07-24-2022 End: 07-24-2022 ambulatory [facility] Work Phone: Start: 07-24-2022 End: 07-24-2022 Departed Referred [facility] Start: 07-24-2022 Registered Referred [facility] Start: 07-20-2022 End: 07-20-2022 Departed Referred [facility] Start: 07-20-2022 Registered Referred [facility] Start: 07-17-2022 End: 07-17-[address] [facility] Start: 07-17-2022 Registered Referred [facility] Start: 07-11-2022 Registered Referred [facility] Start: 07-10-2022 End: 07-10-2022 ambulatory [facility] Work Phone: Start: 07-10-2022 End: 07-10-[address] [facility] Start: 07-10-2022 Reg[facility] Start: 07-03-2022 End: 07-03-2022 ambulatory [facility] Work Phone: Start: 07-03-2022 End: 07-03-2022 [facility] Start: 07-03-2022 [facility] Start: 06-27-2022 End: 06-27-2022 ambulatory [facility] Work Phone: Start: 06-27-2022 End: 06-27-2022 [facility] Start: 06-27-2022 [facility] Start: 06-13-2022 End: 06-13-2022 ambulatory [facility] Work Phone: Start: 06-13-2022 End: 06-13-2022 [facility] Start: 06-13-2022 [facility] Start: 06-06-2022 End: 06-06-2022 ambulatory [facility] Work Phone: Start: 06-06-2022 End: 06-06-2022 [facility] Start: 06-06-2022 [facility] Start: 05-30-2022 End: 05-30-2022 ambulatory [facility] Work Phone: Start: 05-30-2022 End: 05-30-2022 [facility] Start: 05-30-2022 [facility] Start: 05-16-2022 End: 05-16-2022 ambulatory [facility] Work Phone: Start: 05-16-2022 End: 05-16-2022 [facility] Start: 05-16-2022 Registered [facility] Start: 05-02-2022 End: 05-02-2022 ambulatory [facility] Work Phone: Start: 05-02-2022 End: 05-02-2022 Departed Referred [facility] Start: 05-02-2022 Registered Referred [facility] Start: 04-27-2022 End: 04-27-2022 ambulatory [facility] Work Phone: Start: 04-27-2022 End: 04-27-2022 Departed Referred [facility] Start: 04-27-2022 Registered Referred [facility] Start: 04-26-2022 End: 04-26-2022 ambulatory [facility] Work Phone: Start: 04-26-2022 End: 04-26-2022 Departed Referred [facility] Start: 04-11-2022 End: 04-11-2022 ambulatory [facility] Work Phone: Start: 04-11-2022 End: 04-11-2022 Departed Referred [facility] Start: 03-28-2022 End: 03-28-2022 Departed Referred [facility] Start: 03-28-2022 Registered [facility] Start: 03-23-2022 End: 03-23-[address] [facility] Start: 03-23-2022 Registered Referred [facility] Start: 03-16-2022 End: 03-16-2022 ambulatory [facility] Work Phone: Start: 03-16-2022 End: 03-16-[address] [facility] Start: 03-16-2022 [facility] Start: 03-09-2022 End: 03-09-2022 ambulatory [facility] Work Phone: Start: 03-09-2022 End: 03-09-2022 [facility] Start: 03-09-2022 Registered Referred [facility] Start: 03-06-2022 End: 03-06-2022 ambulatory [facility] Work Phone: Start: 03-06-2022 End: 03-06-2022 Departed Referred [facility] Start: 03-06-2022 Registered Referred [facility] Start: 03-02-2022 End: 03-03-2022 Emergency department patient visit UNKNOWN PROVIDER [facility] Start: 03-02-2022 End: 03-02-2022 Emergency department patient visit Lanette Charli JIMENEZ Work Phone: [facility] Emergency Dept Comment on above: Fall, initial encoun ter (Primary Dx); Anticoagulated Start: 02-20-2022 End: 02-20-2022 Departed Referred [facility] Start: 02-20-2022 [facility] Start: 02-13-2022 End: 02-13-2022 ambulatory [facility] Work Phone: Start: 02-13-2022 End: 02-13-2022 Departed Referred [facility] Start: 02-13-2022 Registered Referred [facility] [employer] Start: 02-06-2022 End: 02-06-2022 ambulatory [facility] Work Phone: Start: 02-06-2022 End: 02-06-2022 Departed Referred [facility] Start: 02-06-2022 Registered Referred [facility] [employer] Start: 01-30-2022 End: 01-30-2022 [facility]ed [facility] Start: 01-30-2022 [facility]istered [facility] Start: 01-26-2022 End: 01-26-2022 ambulatory [facility] Work Phone: Start: 01-26-2022 End: 01-26-2022 [facility]ed [facility] Start: 01-26-2022 Registered [facility] Start: 01-19-2022 End: 01-19-2022 ambulatory [facility] Work Phone: Start: 01-19-2022 End: 01-19-2022 [facility]ed [facility] Start: 01-19-2022 Registered [facility] Start: 01-17-2022 ambulatory [facility] Start: 01-10-2022 [facility] Start: 01-10-2022 End: 01-10-2022 ambulatory [facility] Work Phone: Start: 01-10-2022 End: 01-10-2022 [facility]ed [facility] Start: 01-10-2022 Registered [facility] Start: 01-06-2022 AUDIT Monika melvin Work Phone: [facility] Work Phone: Start: 01-05-2022 End: 01-05-2022 [facility]ed [facility] Start: 01-05-2022 Registered [facility] [employer] Start: 12-30-2021 End: 12-30-2021 [facility]ed [facility] Start: 12-30-2021 Registered [facility] Start: 12-28-2021 End: 12-28-2021 ambulatory [facility] Work Phone: Start: 12-28-2021 End: 12-28-2021 Departed Referred [facility] Start: 12-28-2021 Registered Referred [facility] Start: 12-26-2021 End: 12-26-2021 ambulatory [facility] Work Phone: Start: 12-26-2021 End: 12-26-2021 Departed Referred [facility] [employer] Start: 12-26-2021 Registered Referred [facility] Start: 12-22-2021 End: 12-22-2021 ambulatory [facility] Work Phone: Start: 12-22-2021 End: 12-22-2021 Departed Referred [facility] Start: 12-22-2021 Registered Referred [facility] Start: 12-22-2021 End: 12-22-2021 [facility] Start: 12-21-2021 End: 12-22-2021 Emergency department patient visit Sharon Gonzalez MD Work Phone: [facility] Emergency Dept Comment on above: Heel ulceration, lef t, with unspecified severity (HCC) (Primary Dx) Start: 12-19-2021 End: 12-19-2021 ambulatory [facility] Work Phone: Start: 12-19-2021 End: 12-19-2021 [facility] Start: 12-19-2021 Registered Referred [facility] Start: 12-12-2021 End: 12-12-2021 ambulatory [facility] Work Phone: Start: 12-12-2021 End: 12-12-2021 Departed Referred [facility] Start: 12-12-2021 Registered [facility] [employer] Start: 12-08-2021 End: 12-08-2021 ambulatory [facility] Work Phone: Start: 12-08-2021 End: 12-08-2021 [facility]ed [facility] [employer] Start: 12-08-2021 Registered [facility] [employer] Start: 12-05-2021 End: 12-05-2021 ambulatory [facility] Work Phone: Start: 12-05-2021 End: 12-05-2021 [facility]ed [facility] [employer] Start: 12-05-2021 [facility] Start: 12-01-2021 End: 12-01-2021 [facility]ed [facility] Start: 12-01-2021 Registered [facility] Start: 11-28-2021 End: 11-28-2021 [facility] Start: 11-28-2021 [facility] Start: 11-25-2021 Rx Renewal Monika Elias rt Work Phone: [facility] Work Phone: Start: 11-23-2021 End: 11-23-2021 [facility]ed [facility] [employer] Start: 11-23-2021 Registered [facility] Start: 11-22-2021 End: 11-22-2021 [facility] Start: 11-22-2021 Registered [facility] Start: 11-21-2021 End: 11-21-2021 [facility]ed [facility] [employer] Start: 11-15-2021 AUDIT Shiela Stua rt Work Phone: [id number] Work Phone: Start: 11-14-2021 End: 11-14-2021 Departed Referred [facility] Start: 11-14-2021 Registered Referred [facility] Start: 11-08-2021 End: 11-08-2021 Departed Referred [facility] Start: 11-08-2021 Registered Referred [facility] Start: 11-04-2021 End: 11-04-2021 Departed Referred [facility] Start: 11-04-2021 Registered Referred [facility] Start: 10-31-2021 End: 11-01-2021 Emergency department patient visit UNKNOWN PROVIDER [facility] Start: 10-31-2021 End: 11-01-2021 Emergency department patient visit Dante Kim MD Work Phone: [facility] Emergency Dept Comment on above: Other fatigue (Prima ry Dx) Start: 10-31-2021 End: 10-31-2021 Departed Referred [facility] Start: 10-21-2021 End: 10-29-2021 Evaluation and management of inpatient UNKNOWN PROVIDER [facility] Start: 10-21-2021 End: 10-29-2021 Evaluation and management of inpatient Lisajames Michelle Work Phone: [facility] Comment on above: Leg swelling (Primar y Dx); Acute deep vein thrombosis (DVT) of proximal vein of lower extremity, unspecified laterality (HCC) Start: 10-20-2021 End: 10-20-2021 Departed Referred [facility] Start: 10-17-2021 Telephone encounter Nicole davis MD Work Phone: [facility] Comment on above: Missed Appointment Start: 09-19-2021 End: 09-19-2021 [facility] Start: 11-02-2020 AUDIT Monika Elias rt Work Phone: [facility] Work Phone: Start: 10-27-2020 AUDIT Monika Elias rt Work Phone: [facility] Work Phone: Start: 07-13-2020 Patient encounter procedure [facility] Work Phone: Start: 04-13-2020 Patient encounter procedure Wing [facility]une[facility] Work Phone: Start: 04-07-2020 Patient encounter procedure [facility] Work Phone: Start: 03-18-2020 Patient encounter procedure [facility] Start: 10-26-2021 Electroencephalogram w/rec awake&asleep Sarina Pineda ACID PATROLLER - REACTOR SERVICE OPERATOR Work Phone: Start: 10-26-2021 Ct head/brain w/o co ntrast material Sarina Pineda ACID PATROLLER - REACTOR SERVICE OPERATOR Work Phone: Start: 10-26-2021 Prothrombin time Andres Sheridan MD Work Phone: Start: 10-25-2021 Speech and language therapy regime Sarina Pineda ACID PATROLLER - REACTOR SERVICE OPERATOR Work Phone: Start: 10-25-2021 Prothrombin time [...] count reticulo cyte automated Ellen Massey Niesha ACID PATROLLER - REACTOR SERVICE OPERATOR Work Phone: Start: 10-21-2021 C-reactive protein Loua juan c Massey Niesha ACID PATROLLER - REACTOR SERVICE OPERATOR Work Phone: Start: 10-21-2021 Non-invas physiologi c std extremity art 2 level Shruthi Frenchacre ACID PATROLLER - REACTOR SERVICE OPERATOR Work Phone: Start: 10-21-2021 Radex calcaneus mini mum 2 views Shruthi Frenchacre ACID PATROLLER - REACTOR SERVICE OPERATOR Work Phone: Start: 10-21-2021 Dup-scan xtr veins c omplete bilateral study May Cash MD Start: 10-21-2021 Chest x-ray 1 view frontal May Cash MD Start: 10-21-2021 Pulmonary ventilatio n & perfusion imaging May Cash MD Start: 10-21-2021 Fibrin dgradj produc ts d-dimer quantitative May Cash MD Start: 10-21-2021 End: 10-21-2021 Basic metabolic panel calcium total Lisaitalia Michelle DO Work Phone: Start: 08-09-2021 Antibody screen Comment on above: Order Comment: Speci men Type: BLOOD SPECIMENOrdering Facility: [facility] Address: [address] [place], [place] [id number] Performed By: #### T SCR ####[facility] [id number] [address] Start: 08-04-2021 Antibody screen Comment on above: Order Comment: Speci men Type: BLOOD SPECIMENOrdering Facility: [facility] Address: [address] [place] [address] Performed By: #### T SCR ####[facility] B[facility]ANKCL[facility] [id number] [address] Start: 08-01-2021 Antibody screen Comment on above: Order Comment: Speci men Type: BLOOD SPECIMENOrdering Facility: [facility] Address: [address] [place] [address] Performed By: #### T SCR ####[facility] B[facility]ANKCL[facility] [id number] [address] Start: 06-07-2021 Antibody screen Comment on above: Order Comment: Speci men Type: BLOOD SPECIMEN Performed By: #### T SCR ####[facility] B[facility]ANKCL[facility] [id number] [address] Start: 09-02-2020 Lipid 1996 panel - [...] DTaP/Tdap/Td vaccine (2 - Td or Tdap) [facility] Start: 09-22-2026 DTaP/Tdap/Td vaccine (2 - Td) DTaP/Tdap/Td vaccine (2 - Td) [facility] Work Phone: Start: 09-22-2026 DTaP/Tdap/Td Vaccine s (2 - Td or Tdap) DTaP/Tdap/Td Vaccines (2 - Td or Tdap) [facility] Start: 09-02-2025 Lipid panel Lipid Panel [facility] Start: 08-22-2024 DIABETES SCREEN DIABETES SCREEN [facility] Start: 12-04-2023 Lipid panel Lipids [facility] Start: 12-04-2023 Lipid screen Lipid screen [facility] Work Phone: Start: 09-13-2023 End: 09-13-2023 Patient encounter procedure 09/13/2023 11:30 AM EDT Office Visit [facility] [address] [facility] [address] [place] [id number] Rebecca Buck MD [address] [facility] [address] [place] [address] [facility] Start: 08-31-2023 End: 08-31-2023 Patient encounter procedure 08/31/2023 9:30 AM EDT Appointment [facility] [address] [place] [id number] Rebecca Buck MD [address] [address] [facility] Start: 08-13-2023 End: 08-12-2024 Basic metabolic 1998 panel - Serum or Plasma Basic metabolic panel Lab Routine Calculus of ureter Expected: 08/13/2023 (Approximate), Expires: 08/12/2024 [facility] Comment on above: Expected: 08/13/2023 (Approximate), Expires: 08/12/2024 Start: 08-13-2023 End: 08-12-2024 CT Abdomen WO contrast CT abdomen pelvis wo IV contrast Imaging Routine Left flank pain Calculus of ureter Expected: 08/13/2023, Expires: 08/12/2024 [facility] Comment on above: Expected: 08/13/2023 , Expires: 08/12/2024 Start: 08-13-2023 End: 02-12-2024 PSA, Monitoring ([facility]) PSA, Monitoring ([facility]) Lab Routine Disease of prostate Expected: 08/13/2023 (Approximate), Expires: 02/12/2024 [facility] Work Phone: Comment on above: Expected: 08/13/2023 (Approximate), Expires: 02/12/2024 Start: 08-13-2023 End: 08-13-2023 Patient encounter procedure 08/13/2023 10:00 AM EDT Office Visit [facility] [address] [place] [phone] Rebecca Buck MD [address] [place], [place] [id number] [facility] Start: 07-17-2023 Bacteria identified in Urine by Culture [facility] Start: 07-17-2023 [facility] Start: 07-16-2023 Measurement of substance [facility] Start: 05-07-2023 Medicare Advantage A nnual Wellness Visit Medicare Advantage Annual Wellness Visit [facility] Start: 03-02-2023 Creatinine measurement Creatinine Le carmela [facility] Start: 03-02-2023 Potassium measurement Potassium Leve l [facility] Start: 08-22-2022 Diabetes mellitus screening Diabetes Screening [facility] Start: 01-05-2022 Influenza vaccination S [facility] Start: 12-23-2021 EPV, Provider: Wing Ritter, Status: Pen, Time: 9:30 AM EPV, Provider: Wing Ritter, Status: Pen, Time: 9:30 AM [facility] Work Phone: Start: 12-05-2021 Influenza vaccination Flu vaccine (# 1) [facility] Start: 12-05-2021 Blood chemistry [facility] Work Phone: Start: 12-05-2021 Complete blood count [facility] Work Phone: Start: 12-05-2021 [facility] Work Phone: Start: 12-01-2021 [facility] Work Phone: Start: 08-05-2021 COVID-19 VACCINE (4 - Booster for Moderna series) COVID-19 VACCINE (4 - Booster for Moderna series) [facility] Start: 08-05-2021 COVID-19 Vaccine (4 - Booster for Pfizer series) COVID-19 Vaccine (4 - Booster for Pfizer series) [facility] Start: 06-01-2021 COVID-19 Vaccine (4 - Booster for Pfizer series) COVID-19 Vaccine (4 - Booster for Pfizer series) [facility] Start: 05-07-2021 ADVANCE DIRECTIVE DISCUSSION ADVANCE DIRECTIVE DISCUSSION [facility] Start: 08-11-2020 Screening for malign ant neoplasm of colon [facility] Start: 07-30-2020 Screening for malign ant neoplasm of colon [facility] Start: 01-20-2020 Echocardiography Echocardiogram MP-[facility] ardi[facility] [address] [place] Work Phone: Start: 01-06-2020 Influenza vaccination INFLUENZA (#1) [facility] Start: 12-04-2019 Annual Wellness Visi t (AWV) Annual Wellness Visit (AWV) [facility] Start: 12-04-2019 Creatinine monitoring Creatinine mon itoring [facility] Work Phone: Start: 12-04-2019 Hepatitis C screen Hepatitis C scree n [facility] Work Phone: Comment on above: Postponed from 05/06 (Patient Refused) Start: 12-04-2019 Potassium monitoring Potassium monit oring [facility] Work Phone: Start: 12-04-2019 Prostate specific an tigen measurement Prostate Specific Antigen (PSA) Screening or Monitoring [facility] Start: 12-04-2019 Shingles Vaccine (1 of 2) Day gles Vaccine (1 of 2) [facility] Work Phone: Comment on above: Postponed from 05/06 (Patient Refused) Start: 06-07-2019 Colon Cancer Screen FIT/FOBT [facility] Work Phone: Start: 08-14-2017 LIPID SCREEN LIPID SCREEN [facility] Start: 2017 ADVANCE DIRECTIVE DISCUSSION ADVANCE DIRECTIVE DISCUSSION [facility] Start: 2017 PNEUMOCOCCAL: 65+ (1 - PCV) PNEUMOCOCCAL: 65+ (1 - PCV) [facility] Start: 2017 PNEUMOVAX AGE 65 AND OVER WITH 5YR LOOKBACK (#1) PNEUMOVAX AGE 65 AND OVER WITH 5YR LOOKBACK (#1) [facility] Start: 04-14-2016 DIABETES SCREEN DIABETES SCREEN [facility] Start: 2012 RSV Immunization age d 60 or older (1 - 1-dose 60+ series) RSV Immunization aged 60 or older (1 - 1-dose 60+ series) [facility] Start: 2007 PROSTATE CANCER SCRE ENING DISCUSSION PROSTATE CANCER SCREENING DISCUSSION [facility] Start: 2002 Shingles vaccine (1 of 2) Day gles vaccine (1 of 2) [facility] Start: 2002 SHINGRIX VACCINE (1 of 2) DAY GRIX VACCINE (1 of 2) [facility] Start: 2002 Tuberculosis screening COLOREC MONIQUE CANCER SCREENING,SEE MODIFIER [facility] Start: 2002 Zoster Vaccines (1 of 2) Zoste r Vaccines (1 of 2) [facility] Start: 1997 COLOGUARD (FIT-DNA) COLOGUARD (FIT-D NA) [facility] Start: 1997 Colonoscopy COLONOSCOPY [facility] Start: 1997 COLORECTAL CANCER SCREENING COLORECTAL CANCER SCREENING [facility] Start: [address] COLONOGRAPHY [facility] Start: 1997 FECAL OCCULT BLOOD FECAL OCCULT BLOO D [facility] Start: 1997 Screening for malign ant neoplasm of colon [facility] Start: 1997 SIGMOIDOSCOPY SIGMOIDOSCOPY [facility] Start: 1987 Diabetes screen Diabetes screen [facility] Start: 1971 Urine microalbumin profile DTAP,TDAP,TD (1 - Tdap) [facility] Start: 1970 ANNUAL PCP TEAM RELIGIOUS RITUAL SLAUGHTERER KEESHA DISEASE VISIT ANNUAL PCP TEAM CHRONIC DISEASE VISIT [facility] Start: 1970 BP CONTROLLED (<130/80) BP CONTROLLE D (<130/80) [facility] Start: 1970 Diabetes mellitus screening Diabetes Screening [facility] Start: 1970 HEPATITIS C SCREENING HEPATITIS C JOBY VILLARREAL [facility] Start: 1970 Hepatitis C screening [facility] Start: 1964 Adult depression screening assessment DEPRESSION SCREENING [facility] Start: 1964 Depression Screen Depression Screen [facility] Start: 1962 Diabetic foot examination Diabetes: Foot Exam [facility] Start: 1962 Glaucoma screening Diabetes: R etinopathy Screening [facility] Start: 1962 Preventive dental service Diabetes: Dental Exam [facility] Start: [address] [facility] Start: 1952 Hemoglobin A1c measurement Diabetes: Hemoglobin A1C [facility] Start: 1952 Lipid panel Lipid Panel [facility] Start: 1952 Screening for malign ant neoplasm of colon [facility] Bacteria identified in Urine by Culture Urine Culture [facility] Work Phone: End: 03-02-2022 CBC W Auto Differential panel - Blood CBC with Auto Differential Lab Routine One Time for 1 Occurrences starting 03/02/2022 until 03/02/2022 [employer] Work Phone: Comment on above: One Time for 1 Occur rences starting 03/02/2022 until 03/02/2022 End: 03-02-2022 Comprehensive metabolic 2000 panel - Serum or Plasma Comprehensive Metabolic Panel Lab STAT One Time for 1 Occurrences starting 03/02/2022 until 03/02/2022 [employer] Work Phone: Comment on above: One Time for 1 Occur rences starting 03/02/2022 until 03/02/2022 End: 09-06-2023 CT Abdomen WO contrast [facility] Work Phone: Comment on above: Once for 1 Occurrenc es starting 09/06/2023 until 09/06/2023 End: 12-22-2021 Culture, Blood 2 Culture, Blood 2 Microbiology STAT One Time for 1 Occurrences starting 12/22/2021 until 12/22/2021 [employer] Work Phone: Comment on above: One Time for 1 Occur rences starting 12/22/2021 until 12/22/2021 End: 12-22-2021 Microscopic examination of blood, culture Culture, Blood Microbiology STAT One Time for 1 Occurrences starting 12/22/2021 until 12/22/2021 [employer] Work Phone: Comment on above: One Time for 1 Occur rences starting 12/22/2021 until 12/22/2021 Microscopic examinat ion of blood, culture Culture, Blood Microbiology STAT 12/22/2021 12:22 AM EDT [facility] Work Phone: Oxygen therapy [[facility] Data Set] Initiate Oxygen Therapy Protocol Respiratory Care Routine As Needed until discontinued starting 10/21/2021 [facility] Comment on above: As Needed until disc ontinued starting 10/21/2021 Protime-INR Protime-INR Lab Routine Daily until discontinued starting 10/23/2021, 7 completed [facility] Work Phone: Comment on above: Daily until disconti nued starting 10/23/2021, 7 completed End: 03-02-2022 Protime-INR Protime-INR Lab Routine One Time for 1 Occurrences starting 03/02/2022 until 03/02/2022 [facility] Work Phone: Comment on above: One Time for 1 Occur rences starting 03/02/2022 until 03/02/2022 Spirometry panel Incentive stef metry Respiratory Care Routine Daily until discontinued starting 10/21/2021 [facility] Work Phone: Comment on above: Daily until disconti nued starting 10/21/2021 End: 10-21-2021 Wound ostomy eval Wound ostomy eval Wound Ostomy Routine One Time for 1 Occurrences starting 10/21/2021 until 10/21/2021 [facility] Work Phone: Comment on above: One Time for 1 Occur rences starting 10/21/2021 until 10/21/2021 [facility] NEGATED: Highlighted row has been ruled out! Planned Goals not documented [facility] Work Phone: Immunizations Immunization Date Immunization Notes Care Provider Christopher chu 03-04-2019 influenza, high dose seasonal, preservative-free Sarika Salas [facility] 12-03-2018 pneumococcal polysac charide vaccine, 23 valent Sarika Salas [facility] Work Phone: 01-25-2018 influenza, high dose seasonal, preservative-free Sarika Salas [facility] 02-14-2017 influenza, injectabl e, quadrivalent, contains preservative Sarika [facility] 09-22-2016 pneumococcal conjuga te vaccine, 13 valent Sarika [facility] Work Phone: 09-22-2016 tetanus toxoid, redu patrice diphtheria toxoid, and acellular pertussis vaccine, adsorbed Sarika [facility] Work Phone: 02-24-2016 influenza, injectabl e, quadrivalent, contains preservative Sarika [facility] 02-08-2015 influenza virus vacc ine, unspecified formulation Sarika [facility] Work Phone: 02-04-2013 pneumococcal Conjuga te, unspecified formulation Sarika [facility] Work Phone: Payers Date Payer Category Payer Unknown [id number] 01-29-2024 Self-pay 01-05-2022 Medicaid 01-05-2022 Medicare 01-05-2022 Medicare [id number] 10-05-2021 Medicaid [id number] 06-07-2021 Medicare UHC MEDICARE UHC DUAL COMPLETE HMO SNP [id number] 06/07/2021-Present [phone] [address] [place] [address] Medicare [id number] 06-07-2021 Medicare UHC MEDICARE [employer] DUAL COMPLETE [id number] 06/07/2021-Present [phone] [address] [place] [address] [id number]. 2.7.3.587443.315 11-05-2019 Medicare UHC AARP MEDICAR E [facility] AARP MEDICARE O [id number] 11/05/2019-Present O [id number]. 2.7.3.689900.315 07-06-2015 Medicare UHC MEDICARE UHC MEDICARE COMPLETE xxxxxxxxx 2015-Present xxxxxxxxx 1.2.840.224449.1.13.239. 2.7.3.584898.315 1950 Unknown [id number] 2.16.840.1.882352.3.579. 2.668 1952 Unknown [id number] 2.16.840.1.059439.3.579. 2.668 1952 Unknown [id number] 2.16.840.1.115351.3.579. 2.668 1952 Unknown [id number] 2.16.840.1.561972.3.579. 2.668 1952 Unknown [id number] 2.16.840.1.766132.3.579. 2.668 1952 Unknown [id number] 2.16.840.1.901409.3.579. 2.668 1950 Unknown [id number] 2.16.840.1.126693.3.579. 2.668 Private Health Insurance Unknown Unknown [id number] 2.16.840.1.281065.3.579. 2.462 Unknown [id number] 2.16.840.1.832654.3.579. 2.462 Unknown [id number] 2.16.840.1.983534.3.579. 2.462 Unknown [id number] 2.16.840.1.636928.3.579. 2.462 Unknown [id number] 2.16.840.1.680863.3.579. 2.462 Unknown [id number] 2.16.840.1.702796.3.579. 2.462 Unknown [id number] 2.16.840.1.077876.3.579. 2.462 Unknown [id number] 2.16.840.1.559441.3.579. 2.462 Unknown [id number] 2.16.840.1.679712.3.579. 2.462 Unknown [id number] 2.16.840.1.032286.3.579. 2.462 Unknown [id number] 2.16.840.1.650860.3.579. 2.462 Unknown [id number] 2.16.840.1.829777.3.579. 2.462 Unknown [id number] 2.16.840.1.143271.3.579. 2.462 Unknown [id number] 2.16.840.1.811572.3.579. 2.462 Unknown [id number] 2.16.840.1.353145.3.579. 2.462 Unknown [id number] 2.16.840.1.035212.3.579. 2.462 Unknown [id number] 2.16840.1.122579.3.579. 2.462 Unknown [id number] 2.16.840.1.720465.3.579. 2.462 Unknown [id number] 2.16.840.1.834217.3.579. 2.462 Unknown [id number] 2.16.840.1.902292.3.579. 2.462 Unknown [id number] 2.16.840.1.176147.3.579. 2.462 Unknown [id number] 2.16.840.1.382993.3.579. 2.462 Unknown [id number] 2.16.840.1.349835.3.579. 2.462 Unknown [id number] 2.16.840.1.390103.3.579. 2.462 Unknown [id number] 2.16.840.1.964683.3.579. 2.462 Unknown [id number] 2.16.840.1.710973.3.579. 2.462 Unknown [id number] 2.16.840.1.931471.3.579. 2.462 Unknown [id number] 2.16.840.1.419032.3.579. 2.462 Unknown [id number] 2.16.840.1.793772.3.579. 2.462 Unknown [id number] 2.16.840.1.143913.3.579. 2.462 Unknown [id number] 2.840.1.469667.3.579. 2.462 Unknown [id number] 2.840.1.664317.3.579. 2.462 Unknown [id number] .840.1.475701.3.579. 2.462 Unknown [id number] 2.840.1.357305.3.579. 2.462 Unknown [id number] 2.840.1.052427.3.579. 2.462 Unknown [id number] 2.840.1.717304.3.579. 2.462 Unknown [id number] 2.840.1.559522.3.579. 2.462 Unknown [id number] 2.840.1.709721.3.579. 2.462 Unknown [id number] .840.1.605807.3.579. 2.462 Unknown [id number] 2.840.1.298159.3.579. 2.462 Unknown [id number] .840.1.016646.3.579. 2.462 Unknown [id number] 2.840.1.252795.3.579. 2.462 Unknown [id number] 2.840.1.114744.3.579. 2.462 Unknown [id number] 2..840.1.344108.3.579. 2.462 Unknown [id number] 2.840.1.931958.3.579. 2.462 Unknown [id number] 2.16.840.1.459508.3.579. 2.462 Unknown [id number] 2.16.840.1.325693.3.579. 2.462 Unknown [id number] 2.16.840.1.213216.3.579. 2.462 Unknown [id number] 2.16.840.1.349421.3.579. 2.462 Unknown [id number] 2.16.840.1.815051.3.579. 2.462 Unknown [id number] 2.16.840.1.298913.3.579. 2.462 Unknown [id number] 2.16.840.1.915392.3.579. 2.462 Unknown [id number] 2.840.1.600235.3.579. 2.462 Unknown [id number] 2.840.1.627603.3.579. 2.462 Unknown [id number] 2.16.840.1.350773.3.579. 2.462 Unknown [id number] 2..840.1.937813.3.579. 2.462 Unknown [id number] 2.840.1.427400.3.579. 2.462 Unknown [id number] 2.16840.1.671799.3.579. 2.462 Unknown [id number] 2.16.840.1.751488.3.579. 2.462 Unknown [id number] 2.16.840.1.329614.3.579. 2.462 Unknown [id number] 2.16.840.1.140627.3.579. 2.462 Unknown [id number] 2.16.840.1.668159.3.579. 2.462 Unknown [id number] 2.16.840.1.604242.3.579. 2.462 Unknown [id number] 2.16.840.1.881261.3.579. 2.462 Unknown 79204888 2.16.840.1.484233.3.579. 2.462 Unknown 56576288 2.16.840.1.257381.3.579. 2.462 Unknown 63941427 2.16.840.1.109869.3.579. 2.462 Unknown [id number] 2.16.840.1.858114.3.579. 2.462 Unknown [id number] 2.16.840.1.254338.3.579. 2.462 Unknown [id number] 2.16.840.1.780029.3.579. 2.462 Unknown [id number] 2..840.1.363070.3.579. 2.462 Unknown [id number] 2.16.840.1.435345.3.579. 2.462 Unknown [id number] 2.16.840.1.080630.3.579. 2.462 Unknown 84696801 2.16.840.1.667222.3.579. 2.462 Unknown 18295632 2.16.840.1.879982.3.579. 2.462 Unknown 47839357 2.16.840.1.773534.3.579. 2.462 Unknown 77646870 2.16.840.1.238916.3.579. 2.462 Unknown 77731276 2.16.840.1.966154.3.579. 2.462 Unknown 51907255 2.16.840.1.317237.3.579. 2.462 Unknown 26991617 2.16.840.1.824517.3.579. 2.462 Unknown 00236941 2.16.840.1.181260.3.579. 2.462 Unknown 19528395 2.16.840.1.666431.3.579. 2.462 Unknown 00775800 2.16.840.1.224677.3.579. 2.462 Unknown 81847933 2.16.840.1.237336.3.579. 2.462 Unknown 11718375 2.16.840.1.047244.3.579. 2.462 Unknown 41364694 2.16.840.1.503212.3.579. 2.462 Unknown 53451321 2.16.840.1.240157.3.579. 2.462 Unknown 58223220 2..840.1.340097.3.579. 2.462 Unknown 17763190 2.840.1.825785.3.579. 2.462 Unknown 88210246 2.840.1.257935.3.579. 2.462 Unknown 07843420 2.840.1.374959.3.579. 2.462 Unknown 97230019 2.840.1.306165.3.579. 2.462 Unknown 79685134 2.840.1.173889.3.579. 2.462 Unknown 08901526 2.840.1.372827.3.579. 2.462 Unknown 32136887 2.840.1.997799.3.579. 2.462 Unknown 72298848 2.840.1.239796.3.579. 2.462 Unknown 97756774 2.16840.1.080263.3.579. 2.462 Unknown 11895690 2.16840.1.550178.3.579. 2.462 Unknown [id number] 2.16840.1.524425.3.579. 2.462 Unknown [id number] 2.16.840.1.914217.3.579. 2.462 Unknown [id number] 2.16.840.1.178000.3.579. 2.462 Unknown [id number] 2.16.840.1.449818.3.579. 2.462 Unknown [id number] 2.16.840.1.948589.3.579. 2.462 Unknown 80408822 2.16.840.1.869769.3.579. 2.462 Unknown 31866316 2.16.840.1.974061.3.579. 2.462 Unknown 36362525 2.16.840.1.482738.3.579. 2.462 Unknown 24944003 2.16.840.1.594312.3.579. 2.462 Unknown 01555147 2.16.840.1.028727.3.579. 2.462 Unknown 39456954 2.16.840.1.325866.3.579. 2.462 Unknown 76907162 2.16.840.1.599817.3.579. 2.462 Unknown [id number] 2.16.840.1.158371.3.579. 2.462 Unknown [id number] 2.16.840.1.942245.3.579. 2.462 Unknown [id number] 2.16.840.1.384550.3.579. 2.462 Unknown [id number] 2.16.840.1.330026.3.579. 2.462 Unknown [id number] 2.16.840.1.804985.3.579. 2.462 Unknown [id number] 2.16.840.1.862736.3.579. 2.462 Unknown [id number] 2.16.840.1.767034.3.579. 2.462 Social History Date Type Detail Facility Start: 05-23-2018 End: 05-19-2019 Tobacco smoking status WVIS Former smoker [employer] Work Phone: History of tobacco use Cigar Smoker [facility] Work Phone: Start: 05-19-2019 End: 08-13-2023 Cigarettes smoked current (pack per day) - Reported [facility] Work Phone: Start: 05-19-2019 End: 08-13-2023 Alcohol intake Current non-drinker of alcohol (finding) [facility] Work Phone: Start: 12-03-2018 History SDOH Physica l Activity DPW 7 [facility] Work Phone: Start: 12-03-2018 History SDOH Physica l Activity MPS 9 [facility] Work Phone: Start: 12-03-2018 End: 10-31-2021 History SDOH Stress 1 [facility] Work Phone: Start: 12-03-2018 History SDOH Financial 5 [facility] Work Phone: Start: 12-03-2018 History SDOH Transpo rt Med 2 [facility] Work Phone: Start: 1950 Sex Assigned At Not on file S [facility] Work Phone: Start: 08-13-2012 End: 11-13-2019 Tobacco smoking status NHIS Never smoker [facility] Start: 05-23-2018 End: 11-13-2019 Tobacco use and exposure Never used [facility] Start: 11-13-2019 History SDOH Alcohol Std Drinks 98 [facility] Start: 10-11-2021 End: 02-15-2022 Exposure to SARS-CoV-2 (event) Not sure [facility] Start: 1950 Sex Assigned At Male [facility] History of tobacco use Current smoker [facility] Work Phone: History of tobacco use Cigarette Smoker S [facility] Work Phone: Start: 10-31-2021 End: 08-13-2023 Tobacco use panel [facility] Tobacco smoking stat us NHIS Unknown if ever smoked [facility] Work Phone: Start: 07-11-2024 End: 08-21-2024 Sex Male (finding) [facility] NEGATED: Highlighted row - - [facility] Work Phone: Medical Equipment Procedure Code Equipment Code Equipment Origin al Text Equipment Identifier Dates Kit Bactiseal Woodard maria guadalupe Silicone Barium Catheter Shunt Sterile - [id number] Start: 06-08-2021 Catheter Bactise al 14cm External Drainage Csf Sterile Latex Free - [id number] Start: 08-05-2021 Valve Certas Shannon nt Inline - [id number] Start: 06-08-2021 Valve Certas Shannon nt Inline - [id number] Start: 08-05-2021 Valve Certas Shannon nt Inline - [id number] Start: 08-09-2021 Goals Date Patient Goal [...] issues are not documented Disease [facility] Work Phone: Mental Status Date Assessment Result Facility NEGATED: Highlighted row Cognitive function [Interpretation] Cognitive status health issues are not documented Disease [facility] Work Phone: Clinical Notes 05-31-2021 [...] Hydrocephalus, adult (CMS/HCC) (HCC) Kidney stone Neuropathy BRAKE REPAIR MECHANIC (ventriculoperitoneal) shunt status Past Surgical History: Procedure [...] 09/13/23 12:05 PM documented in this encounter [facility] 08-31-2023 Note S: Shanthi from [facility] spoke with [facility] nurse regarding voiding trial procedure. B: Onset of symptoms/concern today. A: [facility] is calling to make sure that the patient doesn't need to stand for the procedure as the patient can't. Patient using a boaz lift and would need to come by cot if so. Shanthi advised that the patient would need to come back cot if unable to stand to move from chair to exam table for procedure. R: [facility] will attempt to arrange for transportation for September 03 but might need to reschedule appointment if unable to obtain transportation. Reason for Disposition [1] Caller requesting NON-URGENT health information AND [2] PCP's office is the best resource Protocols used: Information Only Call - No [facility]23 Telephone encounter Note S: Shanthi from [facility] spoke with [facility] nurse regarding voiding trial procedure. B: [...] Protocols used: Information Only Call - No Prvbea-FRHIX-HW [facility] 08-31-2023 Miscellaneous Notes S: Shanthi from [facility] spoke with [facility] nurse regarding voiding trial [...] Protocols used: Information Only Call - No [id number]-[id number]-SC documented in this encounter [facility] 08-29-2023 Telephone encounter Note Chidi on daughters vm to advise them to call the number for the immigration manager to get clarification, and to call back with further questions [facility] 08-29-2023 Miscellaneous Notes Chidi on daughters vm to advise them to call the number for the immigration manager to get clarification, and to call back with further questions Yes, they will need to call the number given to them. Please advise Name of caller: Shanthi Contact phone number: [phone] Relationship to Patient: patient Provider: MD Quinn Practice: [facility] Chief Complaint/Reason for Call: Shanthi called in to see if Pt would need to come by cot for his CT appt due to Pt being Boaz. [facility] did reach out to office and was advised to reach out to Central Scheduling. TEA did reach out to and was advised to let [facility] know that she would need to reach out to call Maury Cedeño Digital Media Specialist at [facility] [phone] to get clarifications. [facility] did reach back out to [facility] and advised and provider Maury's #. Please advise Best time of day caller can be reached: Any Patient advised that office/PCP has 24-48 business hours to return their call: N/A documented in this encounter [facility] 08-27-2023 Telephone encounter Note Yes, they will need to call the number given to them. [facility] 08-27-2023 Telephone encounter Note Please advise [facility] 08-21-2023 Telephone encounter Note Name of caller: [facility] Contact phone number: [phone] Relationship to Patient: patient Provider: MD Quinn Practice: [facility] Chief Complaint/Reason for Call: Shanthi called [...] to reach out to call Maury Cedeño Digital Media Specialist at [facility] [phone] to get clarifications. TEA did reach back out to [facility] and advised and provider Maury's #. Please advise Best time of day caller can be reached: Any Patient advised that office/PCP has 24-48 business hours to return their call: N/A [facility] 08-13-2023 History of Present illness Narrative [...] Hydrocephalus, adult (CMS/HCC) (HCC) Kidney stone Neuropathy BRAKE REPAIR MECHANIC (ventriculoperitoneal) shunt status Past Surgical History: Past [...] 08/13/23 10:45 AM documented in this encounter [facility] 06-25-2023 Telephone encounter Note [facility] called in stating appt scheduled 07/10/23 Guy has to be made further out, pt being transported by cot. Changed appt to 08/13/[address] [facility] only avail time for transport, first avail with DR Buck at 10:00 AM. [facility] 06-25-2023 Miscellaneous Notes [facility] called in stating appt scheduled 07/10/23 Guy has to be made further out, pt being transported by cot. Changed appt to 08/13/[address] [facility] only avail time for transport, first avail with DR Buck at 10:00 AM. documented in this encounter [facility] 12-22-2021 Hospital Discharge instructions SANIA Lou - 12/22/2021 2:32 AM EDT Please take medication as prescribed Please follow up with your Physicians as instructed in this discharge paperwork Thank you for choosing [facility] I appreciate your patience Please return to the emergency department if your symptoms worsen, or new symptoms develop as discussed documented in this encounter [facility] Work Phone: 10-29-2021 Note Hospitalist Discharg [...] abnormality and previous indwelling tubing history of BRAKE REPAIR MECHANIC shunt ? #?Bilateral lower extremity wounds-wound care [...] Your Medications These medications were sent to [facility] [address] [place], [place] [address] [facility] - [phone] - F [phone] [facility] [address] ? levETIRAcetam 750 MG tablet ? warfarin 6 MG tablet Recommended Follow-up: No follow-up provider specified. Complexity of Follow up: [] Moderate Complexity: follow up within 7-14 calendar days (07332) [x] Severe Complexity: follow up within 7 calendar days (86086) Follow up Testing, Pending results or Referrals [...] Increased fatigue or (more content not included)... [facility] 10-29-2021 Hospital Discharge instructions Fabi Subramanian RN [...] Information Primary Emergency Contact: Triny Damon Address: [address] [place] [address] [address] [place], [place] [address] [place] [address] Relation: Brother/Sister Secondary Emergency Contact: Melissa Sifuentes Mobile Relation: Child Preferred language: [place] Past Surgical History: Past Surgical History: Procedure Laterality Date BRAIN SURGERY CHOLECYSTECTOMY COLONOSCOPY HERNIA REPAIR Immunization History: Immunization History Administered Date(s) Administered Influenza Virus Vaccine 02/08/2015 Influenza, High Dose (Fluzone 65 yrs and older) 01/25/2018, 03/04/2019 Influenza, Quadv, IM, (6 mo and older Fluzone, Flulaval, Fluarix and 3 yrs and older Afluria) 02/24/2016, 02/14/2017 Pneumococcal Conjugate 13-valent ([id number]) 09/22/2016 Pneumococcal Conjugate Vaccine 02/04/2013 Pneumococcal Polysaccharide ([id number]) 12/03/2018 Tdap (Boostrix, Adacel) 09/22/2016 Active Problems: Patient Active Problem List Diagnosis Code Flank pain, acute R10.9 Night muscle spasms M62.838 Chronic fatigue R53.82 Hydrocephalus (HCC) G91.9 Neuropathy G62.9 Erectile dysfunction N52.9 Fluid retention in tissues R60.9 Hyperlipidemia E78.5 Morbidly obese (HCC) E66.01 Leg wound, left S81.802A DVT, lower extremity, recurrent, unspecified laterality ([facility]) I82.409 Moderate malnutrition ([facility]) E44.0 History of seizures Z87.898 Isolation/Infection: Isolation [...] Dependent Dressing Dependent Toileting Dependent Feeding Dependent Drying Oven Tender Dependent Med Delivery whole in pudding Wound [...] Q4H prn SOB Oxygen Therapy: {Therapy; copd oxygen:43614} Ventilator: {MH CC Vent List:[id number]} Rehab Therapies: {THERAPEUTIC INTERVENTION:[id number]} Weight Bearing Status/Restrictions: Weight Bearing - Patient was bedbound in hospital Other Medical Equipment (for information only, NOT a DME order): wheelchair, hospital bed, and Boaz Other Treatments: Patient's personal belongings (please select all that are sent with patient): {[facility] DME Belongings:[id number]} RN SIGNATURE: CASE MANAGEMENT/SOCIAL WORK SECTION Inpatient Status Date: Readmission Risk Assessment Score: Readmission Risk Risk of Unplanned Readmission: 11 Discharging to Facility/ Agency Name: Address: Phone: Fax: Dialysis Facility (if applicable) Name: Address: Dialysis Schedule: Phone: Fax: Chef De Froid/Digital Campaign Manager signature: {Esignature:[id number]} PHYSICIAN SECTION Prognosis: Fair Condition at Discharge: Stable Rehab Potential (if transferring to Rehab): Fair Recommended Labs or Other Treatments After Discharge: Coumadin based on INR target range 2-3, Coumadin 6 mg on 10/30 and 10/31, recheck INR 11/01 and notify physician, ideally should be on 6 mg alt with 7 mg daily, PT/OT, follow-up with neurologist in 1 month, continue [facility] Physician Certification: I certify the above information and transfer of Andrew Sifuentes is necessary for the continuing treatment of the diagnosis listed and that he requires Group Home Facility for greater than 30 days. Update Admission H&P: No change in H&P PHYSICIAN SIGNATURE: documented in this encounter [facility] Work Phone: 10-29-2021 History of Present illness Narrative [facility]ticoagulation [facility] ([facility]) Inpatient Warfarin Consult HPI: Andrew Sifuentes is a 71 y.o. 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 Past Medical History: Diagnosis Date ED (erectile dysfunction) Hemorrhoids Hydrocephalus, adult (HCC) Kidney stone Neuropathy BRAKE REPAIR MECHANIC (ventriculoperitoneal) shunt status Patient is newly referred to the [facility] clinic for warfarin management. Pt [...] drug interactions and adjust dose accordingly. 3. [facility] will manage while inpatient and sign off at discharge. Patient resides in a SNF. If discharged, recommend continuing close to 6-7mg warfarin daily. 4. Will provide warfarin education including [facility] warfarin booklet, if appropriate. Vimal Oropeza RPH, PharmD [facility] Consult Service is available daily [phone]. Please search for covering pharmacist name via TMAT or Groups --> Pharmacy --> Anti-Coagulation Consult Pharmacist (on 3rd page). If no response via TMAT, please page [phone]. Patient seen and chart reviewed. Afebrile. Adequate oxygenation on room air. Baseline mentation. Exam stable X 5 systems. Hgb 11.0 WBC 10.0 K Platelets 344 K Creatinine 0.71 GFR > 90 cc/min. NSE 20.8 with hemolysis. PT 30.8 INR 3.1 Conversion to Warfarin has been completed. APS w/u pending. Discussed with patient's greenhouse staff. Will continue to monitor. Total visit time > 35 minutes. Neurology Attending Progress Note SUBJECTIVE: No issues overnight. Care discussed with nursing staff/patient's medical team MRI brain reported nothing acute. Assessment and Plan: 71 yr M with PMH obstructive hydrocephalus s/p BRAKE REPAIR MECHANIC shunt in 1987, needing multiple revisions and [...] normal limits and both old and new BRAKE REPAIR MECHANIC shunt tubing noted. At present patient is awake, follows commands, was able to tell his name, and that he was in hospital but not oriented to time. Per documentation patient had NCSE in May 2021, was on Vimpat, but it was discontinued as there was no evidence of recurrent seizures in july 2021 by Neurology at [facility], per daughter patient was on Dilantin for 31 yrs. Per daughter patient had seizures in the past and also felt he had staring episodes 10/26/2021 morning. Per daughter patient has been essentially bed bound in [place] since May 2021 but prior to that was independent Impressions: H/O hydrocephalus H/O seizure, H/O stroke Acute DVT H/O PE Plan: -MRI brain w/o contrast nothing acute -CT head done during this admission reported no hydrocephalus, ventricles within normal limits and both old and new BRAKE REPAIR MECHANIC shunt tubing noted -EEG mild to moderate slow, no seizures reported -Labs reviewed -Hydrocephalus management per Neurosurgery. At present patient does not have hydrocephalus on CT head done this admission. No Neurosurgery services available as inpatient in [facility]. Patient can follow up with Neurosurgery as outpatient and if ends up needing inpatient neurosurgery requirement then may need to be transferred to [facility]. -No clear clinical signs of ventriculitis. Defer evaluation to primary medical team/ID as deemed necessary. -Discussed with daughter in detail on . She was concerned that patient has had h/o seizures, and he has been taken off seizure medication, per note documentation patient had NCSE in May 2021 when he was admitted to [facility]. Per daughter she would want patient [...] is no in house Neurology coverage at [facility] over the weekend, primary hospitalist team to contact concentrator operator Neurology at [facility] for any weekend neurological issues related to the patient and if need to discuss any neurological test results/findings. Other deal in house Neurology coverage will be available from Sunday at [facility] and please call concentrator operator Neurology back on Sunday if need further assistance. This note has been generated using LIBCAST dictation software. It may contain incorrect words, punctuation's and spellings that were not noted in the review of the note prior to signing. This note has been generated using [employer] dictation software. It may contain incorrect words, [...] eGFR >90.0 >60 mL/min EGFR IF NonAfrican Armenian >90.0 >60 mL/min Calcium 9.1 8.4 - [...] AST 24 BILITOT 0.4 LABALBU 3.7 @BRIEFLAB([facility]) ABGs: )No results for input(s): PH, [...] Radiology ACCESSION EXAM DATE/TIME PROCEDURE ORDERING PROVIDER [id number] 10/21/2021 15:30 EDT CR Calcaneus 2+ Views [id number] -SHRUTHI MALIK Left CPT code 98286 Reason For Exam (CR Calcaneus 2+ Views [...] Tomography ACCESSION EXAM DATE/TIME PROCEDURE ORDERING PROVIDER [id number] 10/26/2021 11:[address] Head or Brain w/o JUNIE PINEDA, SARINA Contrast CPT code 87213 Reason For Exam (CT Head or Brain w/o Contrast) hydrocephalus. thank you Report CLINICAL INFORMATION: Hydrocephalus. Shunt. 3 mm axial cuts through the head are obtained without IV contrast. The examination is compared to a previous study dated 06/29/2014. FINDINGS: Old BRAKE REPAIR MECHANIC shunt tubing is noted bilaterally. The new [...] are clear. IMPRESSION: 1. Old and new BRAKE REPAIR MECHANIC shunt tubing. 2. No hydrocephalus. 3. Atrophy [...] Imaging ACCESSION EXAM DATE/TIME PROCEDURE ORDERING PROVIDER [id number] 10/23/2021 11:08 EDT MRI Abdomen w/o Contrast WING SRIVASTAVA CPT code 65122 Reason For Exam (MRI Abdomen w/o Contrast) [...] Medicine ACCESSION EXAM DATE/TIME PROCEDURE ORDERING PROVIDER [id number] 10/21/2021 07:55 EDT NM Pulmonary Perfusion [id number] MAY BOGGS w/ Vent Aerosol CPT code 44989 A9567 Reason For Exam (NM Pulmonary Perfusion [...] Brachial Indices Extremity Bilateral Result Date: 10/22/2021 [facility] --- Ankle Brachial Index Report Patient DO GurpreetB: 1950 Study 10/21/2021 Name: Andrew Gonzalez (71yrs) Date: Age: 71 Account: [id number] Gender: M Loc: 444W BP: Ordering Physician: Shruthi Malik Anesthesiologist Assistant: Rody Cross RDMS, RVT Interpreting Physician: Carina Call --- Location: [facility] --- Indications: Foot wounds. Originally ordered as a full PVR. Ordering INSPECTOR PLUG SEAM had to modify the order to ABIs [...] and right 5th toe. 3. Left resting CAREMLLA is 1.29. This is within the normal [...] supine position. Images were obtained using a [employer]s vascular ultrasound machine. --- Arterial pressure [...] EXTREMITY BILATERAL VENOUS DUPLEX Result Date: 10/21/2021 [facility] --- Lower Extremity Venous Duplex Report Patient RADHA Sifuentes: 1950 Study 10/21/2021 Name: Andrew Gonzalez (71yr) Date: Age: 71 Account: [id number] Gender: M Loc: 444 BP: Ordering Physician: May Cash Anesthesiologist Assistant: Rody Cross RDMS, RVT Interpreting Physician: Carina Call --- Location: [facility] --- Indications: Bilateral lower leg edema. --- CRITICAL RESULTS: A critical finding, was reported to ATTILA Nguyen by Rody Cross , on 10/21/2021 , [...] supine position. Images were obtained using a [employer]s vascular ultrasound machine. --- Venous flow [...] Radiology ACCESSION EXAM DATE/TIME PROCEDURE ORDERING PROVIDER [id number] 10/21/2021 08:16 EDT CR Chest 1 View Frontal [id number] MAY BOGGS CPT code 00807 Reason For Exam (CR Chest 1 View [...] Tomography ACCESSION EXAM DATE/TIME PROCEDURE ORDERING PROVIDER [id number] 10/22/2021 13:[address] Abdomen/Pelvis (No SRIVASTAVA, WING PO, No IV) CPT code 16987 Reason For Exam (CT Abdomen/Pelvis (No PO, [...] Imaging ACCESSION EXAM DATE/TIME PROCEDURE ORDERING PROVIDER [id number] 10/27/2021 13:14 EDT MRI Brain w/o Contrast UNASSIGNED, UNASSIGNED CPT code 97897 Reason For Exam (MRI Brain w/o Contrast) stroke Patient has BRAKE REPAIR MECHANIC shunt in place, please follow Radiology protocol [...] included. Hospitalist Progress Note 10/28/2021 11:37 AM [phone]: Please page me @ [phone] for patient care issues. [phone]: Please page transport coordinator for any issues@ night Subjective: Admit Date: [...] times per day LABS: CBC: Recent Labs 10/28/218 WBC 10.0 RBC 3.94* HGB 11.0* HCT [...] abnormality and previous indwelling tubing history of BRAKE REPAIR MECHANIC shunt # Bilateral lower extremity wounds-wound care [...] Services This report was created using the Signal Speaking voice-activated system. Despite prompt dictation and careful editorial review, there may be subtle contextual errors in this report, due to misrecognition of the spoken word. Speech Language Pathology Facility/Department: [facility] MED SURG Dysphagia Treatment Note NAME: [...] and gloves were worn throughout this session. [facility]ticoagulation [facility] ([facility]) Inpatient Warfarin Consult HPI: Andrew Sifuentes is a 71 y.o. 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 Past Medical History: Diagnosis Date ED (erectile dysfunction) Hemorrhoids Hydrocephalus, adult (HCC) Kidney stone Neuropathy BRAKE REPAIR MECHANIC (ventriculoperitoneal) shunt status Patient is newly referred to the [facility] clinic for warfarin management. Pt was referred by Ellen Nguyen APRN-VICTORIANO. Pt is on warfarin for DVT [...] SNF. 4. Will provide warfarin education including [facility] warfarin booklet, if appropriate. Brionna Le, PharmD candidate Josie Gupta RP, PharmD [facility] Consult Service is available daily [phone]. Please search for covering pharmacist name via TMAT or Groups --> Pharmacy --> Anti-Coagulation Consult Pharmacist (on 3rd page). If no response via TMAT, please page [phone]. Follow up b/l foot wounds. No new [...] yr M with H obstructive hydrocephalus s/p BRAKE REPAIR MECHANIC shunt in 1987, needing multiple revisions and [...] normal limits and both old and new BRAKE REPAIR MECHANIC shunt tubing noted. At present patient is awake, follows commands, was able to tell his name, and that he was in hospital but not oriented to time. Per documentation patient had NCSE in May 2021, was on Vimpat, but it was discontinued as there was no evidence of recurrent seizures in july 2021 by Neurology at [facility], per daughter patient was on Dilantin for 31 yrs. Per daughter patient had seizures in the past and also felt he had staring episodes 10/26/2021 morning. Per daughter patient has been essentially bed bound in [place] since May 2021 but prior to that was independent Impressions: H/O hydrocephalus H/O seizure, H/O stroke Acute DVT H/O PE Plan: -MRI brain w/o contrast. Per daughter she would like MRI brain done to evaluate for strokes -CT head done during this admission today reported no hydrocephalus, ventricles within normal limits and both old and new BRAKE REPAIR MECHANIC shunt tubing noted -EEG mild to moderate slow, no seizures reported -Labs reviewed -Hydrocephalus management per Neurosurgery. At present patient does not have hydrocephalus on CT head done this admission. No Neurosurgery services available as inpatient in [facility]. Patient can follow up with Neurosurgery as outpatient and if ends up needing inpatient neurosurgery requirement then may need to be transferred to [facility]. -No clear clinical signs of ventriculitis. Defer evaluation to primary medical team/ID as deemed necessary. -Discussed with daughter in detail on . She was concerned that patient has had h/o seizures, and he has been taken off seizure medication, per note documentation patient had NCSE in May 2021 when he was admitted to [facility]. Per daughter she would want patient [...] interim. This note has been generated using LIBCAST dictation software. It may contain incorrect words, punctuation's and spellings that were not noted in the review of the note prior to signing. This note has been generated using [employer] dictation software. It may contain incorrect words, [...] AMYLASE, LIPASE in the last 72 hours.@BRIEFLAB([facility]) ABGs: )No results for input(s): PH, [...] Radiology ACCESSION EXAM DATE/TIME PROCEDURE ORDERING PROVIDER [id number] 10/21/2021 15:30 EDT CR Calcaneus 2+ Views [id number] -SHRUTHI MALIK Left CPT code 78873 Reason For Exam (CR Calcaneus 2+ Views [...] Result Date: 10/26/2021 [id number] Tomography ACCESSION EXAM DATE/TIME PROCEDURE ORDERING PROVIDER [id number] 10/26/2021 11:[address] Head or Brain w/o JUNIE PINEDA ALLISON Contrast CPT code 03111 Reason For Exam (CT Head or Brain w/o Contrast) hydrocephalus. thank you Report CLINICAL INFORMATION: Hydrocephalus. Shunt. 3 mm axial cuts through the head are obtained without IV contrast. The examination is compared to a previous study dated 06/29/2014. FINDINGS: Old BRAKE REPAIR MECHANIC shunt tubing is noted bilaterally. The new [...] are clear. IMPRESSION: 1. Old and new BRAKE REPAIR MECHANIC shunt tubing. 2. No hydrocephalus. 3. Atrophy [...] Imaging ACCESSION EXAM DATE/TIME PROCEDURE ORDERING PROVIDER [id number] 10/23/2021 11:08 EDT MRI Abdomen w/o Contrast WING SRIVASTAVA CPT code 43133 Reason For Exam (MRI Abdomen w/o Contrast) [...] Medicine ACCESSION EXAM DATE/TIME PROCEDURE ORDERING PROVIDER [id number] 10/21/2021 07:55 EDT NM Pulmonary Perfusion [id number] MAY BOGGS w/ Vent Aerosol CPT code 24908 A9567 Reason For Exam (NM Pulmonary Perfusion [...] Brachial Indices Extremity Bilateral Result Date: 10/22/2021 [facility] --- Ankle Brachial Index Report Patient RADHA Sifuentes: 1950 Study 10/21/2021 Name: Andrew Gonzalez (71yrs) Date: Age: 71 Account: [id number] Gender: M Loc: 444W BP: Ordering Physician: Shruthi Malik Anesthesiologist Assistant: Rody Cross RDMS, RVT Interpreting Physician: Carina Call --- Location: [facility] --- Indications: Foot wounds. Originally ordered as a full PVR. Ordering INSPECTOR PLUG SEAM had to modify the order to ABIs due to patient's acute DVTs in his legs --- Conclusions 1. Right resting CRAMELLA is 1.27. PVR waveforms appear normal at [...] supine position. Images were obtained using a [employer]s vascular ultrasound machine. --- Arterial pressure [...] EXTREMITY BILATERAL VENOUS DUPLEX Result Date: 10/21/2021 [facility] --- Lower Extremity Venous Duplex Report Patient RADHA Sifuentes: 1950 Study 10/21/2021 Name: Andrew R (71yrs) Date: Age: 71 Account: [id number] Gender: M Loc: 444 BP: Ordering Physician: May Cash Anesthesiologist Assistant: Rody Cross RDMS, RVT Interpreting Physician: Carina Call --- Location: [facility] --- Indications: Bilateral lower leg edema. --- CRITICAL RESULTS: A critical finding, was reported to ATTILA Nguyen by Rody Cross , on 10/21/2021 , [...] supine position. Images were obtained using a [employer]s vascular ultrasound machine. --- Venous flow [...] Radiology ACCESSION EXAM DATE/TIME PROCEDURE ORDERING PROVIDER [id number] 10/21/2021 08:16 EDT CR Chest 1 View Frontal [id number] AMBROSE MAY CPT code 37560 Reason For Exam (CR Chest 1 View [...] Tomography ACCESSION EXAM DATE/TIME PROCEDURE ORDERING PROVIDER [id number] 10/22/2021 13:[address] Abdomen/Pelvis (No SRIVASTAVA, WING PO, No IV) CPT code 02310 Reason For Exam (CT Abdomen/Pelvis (No PO, [...] 12:48 PM Consults Speech Language Pathology Facility/Department: [facility] MED SURG Dysphagia Treatment Note NAME: [...] reactivity and state change, indicative of a [id number] diffuse encephalopathy of nonspecific etiology. There are [...] Easy to chew diet/cut up. NEVILLE Jones M.A.CCC/ELECTRIC HOIST OPERATOR Time session ended: 1156 Total session minutes: 23 Images from the original note were not included. Hospitalist Progress Note 10/27/2021 10:40 AM [phone]: Please page me @ [phone] for patient care issues. [phone]: Please page transport coordinator for any issues@ night Subjective: Admit Date: 10/21/2021 PCP: MOINKA STALEY MD Patient was admitted few days [...] Services This report was created using the Signal Speaking voice-activated system. Despite prompt dictation and careful editorial review, there may be subtle contextual errors in this report, due to misrecognition of the spoken word. [facility] Anticoagulation [facility] ([facility]) Inpatient Warfarin Consult HPI: Andrew Sifuentes is a 71 y.o. 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 Past Medical History: Diagnosis Date ED (erectile dysfunction) Hemorrhoids Hydrocephalus, adult (HCC) Kidney stone Neuropathy BRAKE REPAIR MECHANIC (ventriculoperitoneal) shunt status Patient is newly referred to the [facility] clinic for warfarin management. Pt [...] consult Brionna Le, PharmD candidate Josie Gupta [facility], PharmD [facility] Consult Service is available daily [phone]. Please search for covering pharmacist name via TMAT or Groups --> Pharmacy --> Anti-Coagulation Consult Pharmacist (on 3rd page). If no response via [employer], please page [phone]. I cleaned under patient's [...] therapeutic status with Warfarin. Discussed with patient's greenhouse staff. Will continue to monitor. Total visit [...] if concern Hydrocephalus Chronic WOODARD's - Revised BRAKE REPAIR MECHANIC shunt - daughter requested that pt have CT / MRI of brain and neurology be consulted, this was done. - Hydrocephalus management per Neurosurgery. At present patient does not have hydrocephalus on CT head done this morning. No Neurosurgery services available as inpatient in [facility]. Patient can follow up with Neurosurgery as outpatient and if ends up needing inpatient neurosurgery requirement then may need to be transferred to [facility]. Seizure history, unspecified - daughter requested that [...] get report from nursing. Continue wound care. [facility]tico[facility] ([facility]) Inpatient Warfarin Consult HPI: Andrew Sifuentes is a 71 y.o. 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 Past Medical History: Diagnosis Date ED (erectile dysfunction) Hemorrhoids Hydrocephalus, adult (HCC) Kidney stone Neuropathy BRAKE REPAIR MECHANIC (ventriculoperitoneal) shunt status Patient is newly referred to the [facility] clinic for warfarin management. Pt [...] drug interactions and adjust dose accordingly. 3. [facility] will manage while inpatient and sign off at discharge. Patient resides in a SNF. 4. Will provide warfarin education including [facility] warfarin booklet, if appropriate. Thank you for this consult Brionna Le, PharmD candidate Josie Gupta RPh, PharmD [facility] Consult Service is available daily [phone]. Please search for covering pharmacist name via TMAT or Groups --> Pharmacy --> Anti-Coagulation Consult Pharmacist (on 3rd page). If no response via TMAT, please page [phone]. Moon daughter stated that any of patient's family can call and obtain an update on patient's status. Speech Language Pathology Facility/Department: [facility] MED SURG CLINICAL BEDSIDE SWALLOW EVALUATION NAME: [...] a small bore straw. Additionally discussed with ELECTRIC HOIST OPERATOR, agreeable to assess tomorrow. Recent Chest Xray/CT [...] and liquids between bites. Treatment Plan Requires ELECTRIC HOIST OPERATOR Intervention: Yes Duration of Treatment: 2 weeks [...] Education Response: Verbalizes understanding;Needs reinforcement Therapy Time ELECTRIC HOIST OPERATOR Individual Minutes Time In: 826 Time Out: 852 Minutes: 26 NEVILLE Jones 10/26/2021 9:20 AM Comprehensive Nutrition Assessment Type and Reason for Visit: Initial (DT referral for wounds) Nutrition Recommendations/Plan: 1. Recommend to continue: Easy to Chew diet with Thin Liquids as currently ordered and safe for patient to participate in. Discussed with: RN, INSPECTOR PLUG SEAM, and ELECTRIC HOIST OPERATOR. ELECTRIC HOIST OPERATOR to assess tomorrow, best diet and liquid [...] & deltoids),Scapula (trapezius) Fluid Accumulation: Mild Extremities Administrative Specialist Strength: Not Performed Nutrition Assessment: 71 [...] a small bore straw. Additionally discussed with ELECTRIC HOIST OPERATOR, agreeable to assess tomorrow. Nutrition Related Findings: [...] Anthropometric Measures: Height: 5' 7.01 (170.2 cm) [place] Body Weight (IBW): 148 lbs (67 kg) Admission Body Weight: 240 lb (108.9 kg) (stated 10/21/21) Current Body Weight: 205 lb 4 oz (93.1 kg) (10/25/21), 138.7 % IBW. Weight Source: Bed Scale Current BMI (kg/m2): 32.1 Usual Body Weight: 272 lb 11.3 oz (123.7 kg) (05/30/21 and 232.5# noted 08/14/21 at [facility] per EMR Review) % Weight Change (Calculated): -24.7 BMI Categories: Obese Class 1 (BMI 30.0-34.9) Estimated Daily Nutrient Needs: Energy Requirements Based On: Kcal/kg Weight Used for Energy Requirements: [place] (67.15 kg) Energy (kcal/day): 7645-5827 (27-32 kcal/kg IBW) --> increased need d/t wounds Weight Used for Protein Requirements: [place] (67.15 kg) Protein (g/day): 67-101 (1.0-1.5 g protein/kg IBW) Method Used for Fluid Requirements: Other (Comment) Fluid (ml/day): 5064-6203 mL daily or per MD Nutrition Diagnosis: [...] Plan of Care discussed with: Patient, RN, INSPECTOR PLUG SEAM [place] Goals: Goals: other (specify) Specify Other Goals: [...] Too soon to determine Puja Almanza RD, CHENG Contact: *[phone] Or Via TMAT Hematology/Oncology Attending Progress Note SUBJECTIVE: Patient seen [...] IRON, TIBC, FERRITIN No results found for: [id number] No results found for: FOLATE PT 15.6 INR 1.5 CA 19 - 9 is 17 Protein S 138% Protein C 186% ASSESSMENT AND PLAN GI input appreciated. Patient continues with subtherapeutic INR. GI input appreciated. Discussed with patient's greenhouse staff. Will continue monitor. Total visit time > 35 minutes. [facility] Anticoagulation [facility] ([facility]) Inpatient Warfarin Consult HPI: Andrew Sifuentes is a 71 y.o. 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 Past Medical History: Diagnosis Date ED (erectile dysfunction) Hemorrhoids Hydrocephalus, adult (HCC) Kidney stone Neuropathy BRAKE REPAIR MECHANIC (ventriculoperitoneal) shunt status Patient is newly referred to the [facility] clinic for warfarin management. Pt [...] drug interactions and adjust dose accordingly. 3. [facility] will manage while inpatient and sign off at discharge. Patient resides in a SNF. 4. Will provide warfarin education including [facility] warfarin booklet, if appropriate. Thank you for this consult Brionna Le, PharmD candidate Josie Gupta RP, PharmD [facility] Consult Service is available daily [phone]. Please search for covering pharmacist name via TMAT or Groups --> Pharmacy --> Anti-Coagulation Consult Pharmacist (on 3rd page). If no response via [employer], please page [phone]. Progress Note 10/25/2021 9:36 AM Name: Andrew [...] if concern Hydrocephalus Chronic WOODARD's - Revised BRAKE REPAIR MECHANIC shunt DC planning - 10/25/21: INR subtherapeutic, [...] if concern Hydrocephalus Chronic WOODARD's - Revised BRAKE REPAIR MECHANIC shunt DC planning - Can be DC'd back to [facility] once MRI done if no acute findings, MRI is done, defer to hem / onc on plan for that, awaiting chest PA with fluoro Patient seen and chart reviewed. Consult dictated. Will ask GI to assess concerning the etiology of liver lesions. Will continue to monitor. [facility] ([facility]) Inpatient Warfarin Consult HPI: Andrew Sifuentes is a 71 y.o. 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 Past Medical History: Diagnosis Date ED (erectile dysfunction) Hemorrhoids Hydrocephalus, adult (HCC) Kidney stone Neuropathy BRAKE REPAIR MECHANIC (ventriculoperitoneal) shunt status Patient is newly referred to the [facility] clinic for warfarin management. Pt [...] drug interactions and adjust dose accordingly. 3. [facility] will manage while inpatient and sign off at discharge. Patient resides in a SNF. 4. Will provide warfarin education including [facility] warfarin booklet, if appropriate. Thank you for this consult Brionna Le, PharmD candidate Josie Gupta [facility], PharmD [facility] Consult Service is available daily [phone]. Please search for covering pharmacist name via PerfectServe or Groups --> Pharmacy --> Anti-Coagulation Consult Pharmacist (on 3rd page). If no response via PerfectServe, please page [phone]. Follow up foot wounds Patient is more alert this morning. Waffle boots are on Ulcer left heel ulcer right foot Foot drop PE, chart reviewed. Patient relates that he does not walk at home. c ontinue wound care. Images from the original note were not included. Hospitalist Progress Note 10/23/2021 1:47 PM [phone]: Please page me ([phone]) or perfect serve me for patient care issues. [phone]: Please page I[facility] night Hospitalist for any issues. Subjective: Admit Date: 10/21/2021 PCP: MONIKA STALEY MD Room#: 568/1461 Admitting Synopsis: 71 y/o male presents from [...] if concern Hydrocephalus Chronic WOODARD's - Revised BRAKE REPAIR MECHANIC shunt DC planning - Can be DC'd [...] Hemorrhoids Hydrocephalus, adult (HCC) Kidney stone Neuropathy BRAKE REPAIR MECHANIC (ventriculoperitoneal) shunt status Medications: sodium chloride warfarin [...] diet Advance Directive: Full Code Discharge planning: MATEO NGUYEN APRN - REACTOR SERVICE OPERATOR Division of Hospitalist Medicine Inpatient Medical Services PAGER: [phone] Nutrition rescreen completed. Pt referred to RD for foot ulcers. Occupational Therapy Facility/Department: [facility] Occupational Therapy Initial Assessment Name: Andrew Sifuentes : 1950 Date of Service: 10/23/2021 OT eval and treat orders received. Chart reviewed. Per notes pt from [facility], is Boaz lift at baseline, non-ambulatory, and requires assist for all ADLs. Will d/c OT orders. Elizabeth Gutierrez OT Physical Therapy Facility/Department: [address] Physical Therapy Initial Assessment Name: Andrew Sifuentes : 1950 Date of Service: 10/23/2021 PT eval and treat orders received. Chart reviewed. Per notes pt from [facility], is Boaz lift at baseline, non-ambulatory. Will d/c PT orders. Lloyd Silva, PT [facility]tico[facility] ([facility]) Inpatient Warfarin Consult HPI: Andrew Sifuentes is a 71 y.o. 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 Past Medical History: Diagnosis Date ED (erectile dysfunction) Hemorrhoids Hydrocephalus, adult (HCC) Kidney stone Neuropathy BRAKE REPAIR MECHANIC (ventriculoperitoneal) shunt status Patient is newly referred to the [facility] clinic for warfarin management. Pt [...] PharmD [facility] Consult Service is available daily [phone]. Please search for covering pharmacist name via TMAT or Groups --> Pharmacy --> Anti-Coagulation Consult Pharmacist (on 3rd page). If no response via TMAT, please page [phone]. Department of Podiatry Attending Consult Note Reason for Consult: Wound care Requesting Physician: MD Oksana CHIEF COMPLAINT: Foot wounds HISTORY OF PRESENT ILLNESS: The patient is a 71 y.o. male with b/l foot wounds. Patient is awake , but not answering questions. Past Medical History: Diagnosis Date ED (erectile dysfunction) Hemorrhoids Hydrocephalus, adult (HCC) Kidney stone Neuropathy BRAKE REPAIR MECHANIC (ventriculoperitoneal) shunt status Past Surgical History: Procedure [...] OT consulted. Will follow . Thank you. [facility] Respiratory Care Department Progress Note As part [...] included. Hospitalist Progress Note 10/22/2021 6:33 AM [phone]: Please page me ([phone]) or perfect serve me for patient care issues. [phone]: Please page [facility] night Hospitalist for any issues. Subjective: Admit Date: 10/21/2021 PCP: MONIKA STALEY MD Room#: 276/1469 Admitting Synopsis: 71 y/o male presents from [...] consider MRI if concern Hydrocephalus - Revised BRAKE REPAIR MECHANIC shunt Interval History: No overnight issues. Denies [...] no cyanosis or edema and unable to lockmaker BLE, this is old Musculoskeletal: Muscle loss [...] Hemorrhoids Hydrocephalus, adult (HCC) Kidney stone Neuropathy BRAKE REPAIR MECHANIC (ventriculoperitoneal) shunt status Medications: sodium chloride baclofen 10 mg Oral TID bumetanide 2 mg Oral Daily potassium chloride 20 mEq Oral Daily sodium chloride flush 5-40 mL IntraVENous 2 times per day enoxaparin 1 mg/kg SubCUTAneous BID ipratropium-albuterol 1 ampule Inhalation Q4H PA LABS: CBC: Recent Labs 10/21/210 10/22/21 0404 [...] diet Advance Directive: Full Code Discharge planning: CAMILLA ENGEL CNP Division of Hospitalist Medicine Inpatient Medical Services PAGER: [phone] Images from the original note were not included. Hospitalist Progress Note 10/21/2021 5:31 PM [phone]: Please page me ([phone]) or perfect serve me for patient care issues. [phone]: Please page IMS night Hospitalist for any [...] Will need chronic OAC Hydrocephalus - Revised BRAKE REPAIR MECHANIC shunt Interval History: No overnight issues. Denies [...] Hemorrhoids Hydrocephalus, adult (HCC) Kidney stone Neuropathy BRAKE REPAIR MECHANIC (ventriculoperitoneal) shunt status Medications: sodium chloride baclofen [...] diet Advance Directive: Full Code Discharge planning: MATEO NGUYEN APRN - REACTOR SERVICE OPERATOR Division of Hospitalist Medicine Inpatient Medical Services PAGER: [phone] Family member Triny, sister to patient, called back to the hospital stating that she was returning a call from a provider. Her phone number is [phone] to speak with whomever was attempting to reach out to her. documented in this encounter [employer] Work Phone: 10-17-2021 Miscellaneous Notes Mr. Sifuentes missed his hospital stay follow-up appointment w. Dr. Lim today. Called to Reschedule. Could not get through. Subscriber you have dialed not in service - was the automated voice mail. Unable to leave . No other phone# available. Ramya Negro Stained Glass [employer] [facility] [facility]ine documented in this encounter [facility] 08-19-2021 Note [facility] 08-19-2021 Note [facility] 08-18-2021 Note [facility] 08-18-2021 Note [facility] 08-17-2021 Note [facility] 08-17-2021 Note [facility] 08-16-2021 Note [facility] 08-16-2021 Note HNO ID: [id number] Author: Katt Kelsey DO Service: Hospital Medicine Author Type: Physician Type: Plan of Care Filed: 08/16/2021 12:26 PM Note Text: Spoke with RN that line is a PICC. Katt Kelsey DO 08/16/2021 12:26 PM [facility] 08-16-2021 Note [facility] 08-16-2021 Note [facility] 08-15-2021 Note [facility] 08[facility]15-2021 Note [facility] 08[facility]15-2021 Note [facility] 08-14-2021 Note [facility] 08[facility]14-2021 Note [facility] 08-13-2021 Note [facility] 08-13-2021 Note [facility] 08-13-2021 Note [facility] 08-13-2021 Note HNO ID: [id number] Author: Ambar Note Service: ? Author Type: ? Type: Progress Notes Filed: 08/13/2021 3:10 AM Note Text: Epic Scheduled Downtime: 08/13/2021 1:08:47 AM to 08/13/2021 2:53:47 AM [facility] 08-12-2021 Note [facility] 08-12-2021 Note [facility] 08-12-2021 Note [facility] 08-11-2021 Note [facility] 08-11-2021 Note [facility] 08[facility]11-2021 Note [facility] 08-11-2021 Note [facility] 08[facility]11-2021 Note [facility] 08-11-2021 Note [facility] 08-10-2021 Note [facility] 08[facility]10-2021 Note [facility] 08-10-2021 Note [facility] 08-10-2021 Note [facility] 08-09-2021 Note HNO ID: [id number] Author: Shannon Brooks RN Service: ? Author Type: Registered Nurse Type: Nursing Progress Note Filed: 08/09/2021 7:33 PM Note Text: Report called to unit [facility] 08-09-2021 Note [facility] 08-09-2021 Note [facility] 08-09-2021 Note [facility] 08-08-2021 Note [facility] 08[facility]08-2021 Note [facility] 08-08-2021 Note [facility] 08-07-2021 Note [facility] 08[facility]07-2021 Note [facility] 08-07-2021 Note [facility] 08[facility]07-2021 Note [facility] 08-07-2021 Note [facility] 08-06-2021 Note [facility] 08[facility]06-2021 Note [facility] 08-06-2021 Note [facility] 08-05-2021 Note [facility] 08[facility]05-2021 Note [facility] 08-05-2021 Note [facility] 08-04-2021 Note [facility] 08[facility]04-2021 Note [facility] 08[facility]04-2021 Note [facility] 08-03-2021 Note [facility] 08[facility]03-2021 Note [facility] 08-03-2021 Note [facility] 08-02-2021 Note [facility] 08[facility]02-2021 Note [facility] 08-02-2021 Note [facility] 08-01-2021 Note [facility] 08-01-2021 Note [facility] 08[facility]01-2021 Note [facility] 08[facility]01-2021 Note [facility] 07-31-2021 Note [facility] 07-31-2021 Note [facility] 07-30-2021 Note [facility] 07-30-2021 Note [facility] 07[facility]30-2021 Note [facility] 07-29-2021 Note [facility] 07-29-2021 Note [facility] 07[facility]29-2021 Note [facility] 07-28-2021 Note [facility] 07[facility]28-2021 Note [facility] 07-28-2021 Note [facility] 07-27-2021 Note [facility] 07-27-2021 Note [facility] 07-27-2021 Note [facility] 07-26-2021 Note [facility] 07-26-2021 Note [facility] 07-26-2021 Note [facility] 07-26-2021 Note [facility] 07[facility]26-2021 Note [facility] 07-25-2021 Note [facility] 07-25-2021 Note [facility] 07-25-2021 Note [facility] 07[facility]25-2021 Note [facility] 07-24-2021 Note [facility] 07-24-2021 Note [facility] 07[facility]24-2021 Note [facility] 07-23-2021 Note [facility] 07[facility]23-2021 Note [facility] 07-23-2021 Note [facility] 07-23-2021 Note [facility] 07-23-2021 Note [facility] 07-22-2021 Note [facility] 07-22-2021 Note [facility] 07[facility]22-2021 Note [facility] 07-21-2021 Note [facility] 07-21-2021 Note [facility] 07-21-2021 Note [facility] 07-21-2021 History of Past i llness Narrative Problem Noted Date Resolved Date Fever 07/21/2021 07/28/2021 Last Assessment & Plan: See Ventriculitis. 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 grew anaerobic gram positive cocci 06/08/2021 PLAN: BRAKE REPAIR MECHANIC shunt tip sent to [facility] main, awaiting cx Continue Meropenem per [...] CTH showed improving Hydrocephalus - repeat CTH 2/3 stable - 2/2 VA shunt removal and VPS shunt placed- EVD removed 06/10 PLAN: - following CSF studies; 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 for 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 at this time - ID following- Continue antibiotics: Meropenem -CSF leak from EVD site, appreciate NSGY recs> stat repeat CTH on 06/07 d/t concern for CSF leak, cephalematoma, CTH unremarkable -Tolerating TF - SBT WTE - PICC line placed documented as of this encounter (statuses as of 10/17/2021) [facility]03-17-2022 [facility]22 Note [facility]03-16-2022 [facility] 07-19-2021 [facility]13[facility]20[facility]2022 Note [facility]03-12-2022 [facility] 07-15-2021 [facility]11[facility]20[facility]10[facility]10[facility]10[facility]09[facility]2022 Note [facility]03-09-2022 [facility] 07-12-2021 [facility]08[facility]20[facility]07[facility]07[facility]2022 Note [facility]03-05-2022 [facility] 07-09-2021 [facility]05-2022 [facility]-05-2022 NoteHNO ID: [id number] Author: Lizette Valderrama RN Service: Nursing Author Type: Registered Nurse Type: Nursing Progress Note Filed: 07/09/2021 1:41 AM Note Text: Report called to [facility]03-04-2022 NoteHNO ID: [id number] Author: Lizette Valderrama RN Service: Nursing Author Type: Registered Nurse Type: Nursing Progress Note Filed: 07/08/2021 8:57 PM Note Text: [address] 2049 back to PACU [address] [place], [place] [address]703-04-2022 NoteHNO ID: [id number] Author: Sukhi Chery APRN.CNP Service: ? Author Type: Nurse Practitioner Type: Progress Notes Filed: 07/09/2021 6:46 PM Note Text: Connected Care Unit Progress Note Patient Name: Andrew Sifuentes Patient Facility: [facility] Admit Date 06/28/2021 Level of Care: Skilled [...] Dept Phone 07/21/2021 11:00 AM NICOLE LIM [phone] HPI: (Per Dr. Beltran) Andrew Sifuentes is being seen today for penitentiary facility (SNF) admission AND management of weakness, tube feed, infected retroperitoneal infection and seizure. ? This is a 71 year old male who presents from [facility] with primary admitting diagnosis of [...] CT brain concerning for hydrocephalus. Tip of BRAKE REPAIR MECHANIC shunt was found to be in the [...] slow to respond. Ordered to transfer to [facility] ED for evaluation of neurological [...] changes in co (more content not included)... [facility]03-04-2022 [facility]2022 NoteHNO ID: [id number] Author: Sukhi Chery APRN.VICTORIANO Service: ? Author Type: Nurse Practitioner Type: Progress Notes Filed: 07/09/2021 6:20 PM Note Text: Connected Care Unit Progress Note Patient Name: Andrew Sifuentes Patient Facility: [facility] Admit Date 06/28/2021 Level of Care: Skilled [...] Dept Phone 07/21/2021 11:00 AM NICOLE LIM [phone] HPI: (Per Dr. Beltran) Andrew Sifuentes is being seen today for penitentiary facility (SNF) admission AND management of weakness, tube feed, infected retroperitoneal infection and seizure. ? This is a 71 year old male who presents from [facility] with primary admitting diagnosis of [...] CT brain concerning for hydrocephalus. Tip of BRAKE REPAIR MECHANIC shunt was found to be in the [...] Pharynx: Oropharynx is clear. (more content not included)...[facility]02-28-2022 NoteHNO ID: [id number] Author: Sukhi Chery APRN.VICTORIANO Service: ? 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 Beltran) Andrew Sifuentes is being seen today for penitentiary facility (SNF) admission AND management of weakness, tube feed, infected retroperitoneal infection and seizure. ? This is a 71 year old male who presents from [facility] with primary admitting diagnosis of [...] CT brain concerning for hydrocephalus. Tip of BRAKE REPAIR MECHANIC shunt was found to be in the [...] to facility records. OBJECTIVE: Labs/diagnostics: 07/04/2021 Glucose=91 Pc=327 K=3.8 Bh=515 CO2=24 BUN=14 Creatinine=0.5 TLB=175 Ca=9.0 Protein,Total=6.7 Albumin=3.6 MouIcpi=860 AST=15 ALT=21 Bilirubin,Totall=0.5 WBC=10.7 RBC=4.04 Hgb=10.9 Hct=35.3 Bqonxkqq=380 VancomycinTr (more content not included)...[facility]02-24-2022 NoteHNO ID: [id number] Author: Sukhi Chery APRN.VICTORIANO Service: ? Author Type: Nurse Practitioner Type: Progress Notes Filed: 07/09/2021 5:43 PM Note Text: Connected Care Unit Progress Note Patient Name: Andrew Sifuentes Patient Facility: [facility] Admit Date 06/28/2021 Level of Care: Skilled [...] Phone 07/21/2021 11:00 AM NICOLE LIM GENERA [phone] HPI: (Per Dr. Beltran) Andrew Sifuentes is being seen today for penitentiary facility (SNF) admission AND management of weakness, tube feed, infected retroperitoneal infection and seizure. ? This is a 71 year old male who presents from [facility] with primary admitting diagnosis of [...] CT brain concerning for hydrocephalus. Tip of BRAKE REPAIR MECHANIC shunt was found to be in the [...] to facility records. OBJECTIVE: Labs/diagnostics: 07/01/2021 Glucose=83 Lg=959 K=4.1 Zp=223 CO2=27 BUN=22 Creatinine=0.6 TBQ=744 Ca=8.7 WBC=10.8 RBC=3.40 Hgb=9.3 Hct=29.9 Tutvmwta=986 Vital Signs: BP 128/80 Pulse 77 Temp 36.7 ?C (98 ?F) Resp 20 Ht 182.9 cm (6') Wt 113 kg (249 lb 3.2 oz) SpO2 96% BMI 33.80 kg/m? Physical Exam: Physical Exam Vitals reviewed. Constitutional: General: He is not in acute distress. (more content not included)...[facility]02-22-2022 [facility]2022 Note [facility]02-20-2022 [facility] 06[facility]26-2021 [facility]17[facility]2022 Note [facility]02-17-2022 [facility] 06-22-2021 NoteHNO ID: [id number] Author: Xiomy England RN Service: Nursing Author Type: Registered Nurse Type: Nursing Progress Note Filed: 06/22/2021 7:22 PM Note Text: RT contacted as pt has wheezing auscultated and same auditory. For prn Treatment.[facility]02-16-2022 [facility]2022 Note [facility]02-15-2022 [facility] 06[facility]21-2021 [facility]2022 Note [facility]02-13-2022 [facility] 06[facility]19-2021 [facility]20[facility]12[facility]2022 Note [facility]02-12-2022 NoteHNO ID: [id number] Author: Interface Note Service: ? Author Type: ? Type: Progress Notes Filed: 06/18/2021 3:10 AM Note Text: Epic Scheduled Downtime: 06/18/2021 1:00:00 AM to 06/18/2021 2[facility]27[facility] Note [facility]02-11-2022 [facility] 06-17-2021 [facility]10[facility]10[facility]10[facility]2022 Note [facility]02-10-2022 [facility] 06-15-2021 [facility]2022 NoteHNO ID: [id number] Author: Lamonte Kline DO Service: Neurology ICU Author Type: Resident Type: Plan of Care Filed: 06/15/2021 6:21 PM Note Text: Patient's daughter Melissa updated on plan of care and critical condition, all questions answered.[facility]02-09-2022 [facility]02[facility]09[facility]20[facility]2022 Note [facility]02-09-2022 [facility] 06-15-2021 [facility]2022 Note [facility]02-07-2022 [facility] 06-12-2021 [facility]2022 Note [facility]02-04-2022 [facility] 06-09-2021 [facility] [facility] NoteHNO ID: [id number] Author: Luis Diaz RN Service: ? Author Type: Registered Nurse Type: Nursing Progress Note Filed: 06/08/2021 9:23 AM Note Text: Patient off the floor to OR at this time.[facility]02-02-2022 [facility] 06-08-2021 NoteHNO ID: [id number] Author: Eloise Samuel RN Service: ? Author Type: Registered Nurse Type: Nursing Progress Note Filed: 06/08/2021 12:46 AM Note Text: Dr. Brito notified of changes throughout shift. No [facility] 06-07-2021 NoteHNO ID: [id number] Author: Eloise Samuel RN Service: ? Author Type: Registered Nurse Type: Nursing Progress Note Filed: 06/07/2021 8:01 PM Note Text: Neuro surg REACTOR SERVICE OPERATOR notified of downward deviation of pupils. No new orders at this time.[facility]02-01-2022 [facility] Note [facility] 06-05-2021 [facility]22 NoteHNO ID: [id number] Author: Jermaine Miller PA-C Service: Neurosurgery Author Type: Physician Flooring Professional Type: Plan of Care Filed: 06/04/2021 1:59 PM Note Text: Discussed with Dr. Charles CT brain results. At this time, continue with EVD at 5 [facility]01-29-2022 [facility] 06-04-2021 [facility]22 NoteHNO ID: [id number] Author: Mauricio Frank DO Service: Neurology ICU Author Type: Physician Type: Plan of Care Filed: 06/03/2021 2:38 PM Note Text: I spoke with Melissa and updated her over the phone. Mauricio Frank, [facility]01-28-2022 [facility]22 Note [facility]01-26-20[facility] 06-01-2021 [facility]2022 Note [facility]01-25-20[facility] 05-31-2021 [facility]* Diagnosis Leg swelling- Primary Swelling of limb Acute deep vein thrombosis (DVT) of proximal vein of lower extremity, unspecified laterality (HCC) DVT, lower extremity, recurrent, unspecified laterality (HCC) Moderate malnutrition (HCC) Malnutrition of moderate degree History of seizures Personal history of other disorders of nervous system and sense organs documented in this encounter [facility] Work Phone: Evaluation noteNo assessment information available [facility] Work Phone: Evaluation note* Diagnosis Other fatigue- [...] tract symptoms (LUTS) [facility] Diagnosis Left flank pain Abdominal pain, unspecified site Calculus of ureter [facility] Diagnosis Left flank pain- Primary Abdominal pain, unspecified site BPH with urinary obstruction Hypertrophy of prostate with urinary obstruction and other lower urinary tract symptoms (LUTS) History of kidney stones [facility]* Name Dates Details Instructions not documented [facility] Work Phone: Instructions* Name Dates Details Instructions not documented [facility] [address] [place] Work Phone: Reason for referral (narrative)No reason for referral information availableFirelands [facility] Work Phone: Advance Directives No Advanced Directives Records FoundDocuments on File Type Date Recorded 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 anation Advance Directives and Living Will Power of School Counsellor Documents on File Type Date Recorded 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 anation Advance Directive(s) 06/02/2021 2:45 PM [...] Maker Relationship: 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 Adult Children (underwriting sales representative) Documents on File Type Date Recorded 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 anation ACP-Advance Directive ACP-Power of School Counsellor Latest Code Status on File Code Status Date Activated Date Inactivated Comments Full Code 10/21/2021 4:09 AM Healthcare Agents on File Name Relationship Healthcare Agent Relationshi p Communication Melissa Gurpreet Child Primary Decision Maker deann Gurperet Child Secondary Decision Maker Documents on File Type Date Recorded 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 anation ACP-Advance Directive ACP-Power of School Counsellor ACP-Do Not Resuscitate 11/01/2021 7:03 AM Latest Code Status on File Code Status Date Activated Date Inactivated Comments Full Code 10/21/2021 4:09 AM 10/29/2021 7:25 PM Healthcare Agents on File Name Relationship Healthcare Agent Relationshi p Communication Melissa Gurpreet Child Primary Decision Maker deann Gurpreet Child Secondary Decision Maker Documents on File Type Date Recorded 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 anation ACP-Do Not Resuscitate 11/03/2021 10:15 AM ACP-Do Not Resuscitate 11/01/2021 7:03 AM Healthcare Agents on File Name Relationship Healthcare Agent Relationshi p Communication Melissa Gurpreet Child Primary Decision Maker deann Gurpreet Child Secondary Decision Maker Documents on File Type Date Recorded 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 anation ACP-Do Not Resuscitate 11/03/2021 10:15 [...] Documents on File Type Date Recorded 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 anation DNR (Do Not Resuscitate) 10/31/2021 DNR (Do Not Resuscitate) 10/21/2021 Documents on File Type Date Recorded 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 anation DNR (Do Not Resuscitate) 10/31/2021 [...] 4 5:00am ASSISTED LAB WORK March 18 5:00am ASSISTED LAB WORK March 19 4 4:00am ASSISTED LAB WORK March 20 4 5:00am ASSISTED LAB WORK March 24 4 5:00am ASSISTED LAB WORK March 27 4 5:00am LABWORK March 31, 2024 5:00am ASSISTED LAB WORK April 04 4 5:00am LABWORK [...] Urology Diagnoses Other fatigue Lanette Munguia DO [address] [place] [address] [facility] [place] [address] [place] [address] Referral ID Status Reason Start Date Expiration Date V isits Requested Visits Authorized [id number] Open Specialty Services Required 11/01/2021 11/01/2022 1 1 Scheduling Instructions [facility] Urology - [facility] [address] , [address] [place], [place] [address] Specialty Diagnoses / Procedures Referred By Contac t Referred To Contact IP Unit Diagnoses Heel ulceration, left, with unspecified severity (HCC) Henry Hidalgo PA [address] [place] [address] [facility] [address] [place] [id number] Referral ID Status Reason Start Date Expiration Date V isits Requested Visits Authorized [id number] Open Specialty Services Required 12/22/2021 12/22/2022 1 1 Scheduling Instructions [facility] - [facility] [address] [place] [address] Comments Please use the parking lot located on [facility] or [place]. There are handicap parking spots located in a small lot beside the wound care entrance off of [facility]. Please be advised there is a small incline from those handicap spots to our main door. Bring photo ID and insurance card to photocopy. Wear loose fitting clothing (to easily access wound). Bring list of medications (or can be sent by office). Check in at Registration for your first visit. Please call us directly with any questions [phone]. We look forward to helping you heal. Specialty Diagnoses / Procedures Referred By Contac t Referred To Contact Radiology Diagnoses Left flank pain Calculus of ureter Procedures CT abdomen pelvis wo IV contrast Rebecca Buck MD [address] [place] [address] Referral ID Status Reason Start Date Expiration Date V isits Requested Visits Authorized [id number] Pending Review 08/13/2023 08/12/2024 1 1 Referral ID Status Reason Start Date Expiration Date Visits Re quested Visits Authorized [id number] Closed 08/17/2023 09/16/2023 1 1 Additional Source Comments Source Comments (unrecognize d section and content) In the event this informatio n is protected by the Federal Confidentiality of Alcohol and Drug Abuse Patient Records regulations: The Federal rules restrict any use of the information to criminally investigate or prosecute any alcohol or drug abuse patient.[facility] Hospital[facility] the event this information is protected by the Federal Confidentiality of Alcohol and Drug Abuse Patient Records regulations: The Federal rules restrict any use of the information to criminally investigate or prosecute any alcohol or drug abuse patient.[facility] (unrecognized sect ion and content) No Status Records FoundNo Status Records FoundNo Status Records FoundNo Status Records FoundNo Status Records FoundNo Status Records FoundNo Status Records FoundNo Status Records FoundNo Status Records FoundNo Status Records Found INFORMATION SOURCE (unrecogn ized section and content) DATE CREATED AUTHOR 05/20/2021 [facility] DATE CREATED AUTHOR AUTHOR'S ORGANIZ ATION 06/07/2021 [facility] DATE CREATED AUTHOR AUTHOR'S ORGANIZ ATION 08/02/2021 [facility] DATE CREATED AUTHOR AUTHOR'S ORGANIZ ATION 12/09/2021 [facility] DATE CREATED AUTHOR AUTHOR'S ORGANIZ ATION 12/29/2021 [facility] DATE CREATED AUTHOR AUTHOR'S ORGANIZ ATION 02/04/2022 [facility] DATE CREATED AUTHOR AUTHOR'S ORGANIZ ATION 03/03/2022 [facility] DATE CREATED AUTHOR AUTHOR'S ORGANIZ ATION 09/15/2023 [facility] DATE CREATED AUTHOR AUTHOR'S ORGANIZ ATION 01/22/2025 [facility] Reason for Visit (unrecogniz ed section and content) Reason Comments Missed Appointment Reason Comments Leg Swelling Blood clots Reason Comments Altered Mental Status Pt presents to ED via [facility] for complaint listed. Pt is from [place] [facility]. Pt's LKW was 1000 hours today. Per EMS, pt had a - [place]. Pt denies CP, SOB, and N/V. Pt seems slow to respond, slightly confused at this time. Reason Comments [facility] did [facility] on left lower leg [...] Buck MD [address] [place] [address] Referral ID Status Reason Start Date Expiration Date Visits Re quested Visits Authorized [id number] Closed 08/17/2023 09/16/2023 1 1 Reason Comments [...] Status: Active Member Role Status Dates Dr. Monkia Staley MD Primary Care Provider Active Start: [...] Status Dates Carlos NOVAK Attending Provider Active Bench Worker Binding Relationship Specialty Start Date End Date Mateus Burris [address] [place] [address] PCP - General Family Practice 11/12/19 Bench Worker Binding Relationship Specialty [place] [address] [place] [address] PCP - General Family Medicine 09/09/20 Bench Worker Binding Relationship Specialty [place] [address] [place] [address] PCP - General Family Medicine 09/09/20 Bench Worker Binding Relationship Specialty [place] [address] [place] [address] PCP - General Family Medicine 09/09/20 Bench Worker Binding Relationship Specialty Start Date End Date Carlos Cavazos MD [address] [place] [address] PCP - General Internal Medicine 02/20/22 Team [...] Monika Staley MD Primary Care Provider Active Bench Worker Binding Relationship Specialty Start Date End Date Carols Cavazos [address] [place] [phone] PCP - General 12/21/21 Rebecca Buck MD [address] [address] Surgeon Urology 06/25/23 Team Status: Inactive Member [...] NOVAK Attending Provider, Referring Provi lupillo Active Bench Worker Binding Relationship Specialty Start Date End Date Carlos Cavazos [address] [place] [phone] PCP - General 12/21/21 Rebecca Buck MD [address] [address] Surgeon Urology 06/25/23 Bench Worker Binding Relationship Specialty Start Date End Date Carlos Cavazos [facility] [place] [phone] PCP - General 12/21/21 Rebecca Buck MD [address] [address] Surgeon Urology 06/25/23 Bench Worker Binding Relationship Specialty Start Date End Date Carlos Cavazos [address] [place] [phone] PCP - General 12/21/21 Rebecca Buck MD [address] [address] Surgeon Urology 06/25/23 Bench Worker Binding Relationship Specialty Start Date End Date Carlos Cavazos [address] [place] [phone] PCP - General 12/21/21 Rebecca Buck MD [address] [address] Surgeon Urology 06/25/23 Bench Worker Binding Relationship Specialty Start Date End Date Carlos Cavazos [address] [place] [phone] PCP - General 12/21/21 Rebecca Buck MD [address] [address] Surgeon Urology 06/25/23 Bench Worker Binding Relationship Specialty Start Date End Date Carlos Cavazos [address] [place] [phone] PCP - General 12/21/21 Rebecca Buck MD [address] [address] Surgeon Urology 06/25/23 Team Status: Inactive Member Role Status Dates Dr. Monika Staley MD Primary Care Provider Active Start: March 13, 2024 End: March 13, 2024 [facility] Attending Provider Active Start: March 13, [...] March 17, 2024 End: March 17, 2024 [facility] Attending Provider Active Start: March 17, 2024 End: March 17, 2024 Team Status: Inactive Member Role Status Dates Dr. Monika Staley MD Primary Care Provider Active Start: March 18, 2024 End: March 18, 2024 [facility] Attending Provider Active Start: March 18, [...] March 20, 2024 End: March 20, 2024 [facility] Attending Provider Active Start: March 20, [...] March 27, 2024 End: March 27, 2024 [facility] Attending Provider Active Start: March 27, [...] Care Provider Active Start: July 07, 2024 [facility] Attending Provider Active Start: July 07, [...] Active Member Role/Relationship Status Dates Dr. Monika Stlaey MD Primary Care Provider Active Team Status: [...] Fabi Subramanian, AYUSH)1547 (Given - Provider: Cliff Isidro, AYUSH)2100 (Due) bumetanide (BUMEX) tablet 2 mg 2 [...] mL/lumen 0912 (Given - Provider: Rosanne Hoff, AYUSH)2034 (Given - Provider: Katlin Julio RN) 0816 [...] mg, Oral, ONCE Warfarin, 1 dose, On [facility] 10/29/21 at 1800, Indication of [...] er: Isaura Cabrales RN - Comment: MIKE)0415 (Due)121 (Due)2014 (Due) tamsulosin (FLOMAX) capsule 0.4 mg [...] BE BASED ON THE PRIMARY CLINICAL RECORDS. [facility] Center[facility]. provides no warranty or guarantee of the accuracy or completeness of information in this document.
--- OUTSIDE RECORDS SUMMARY | 2025-01-26 04:06 | XMS RPT_ITS | CCD ---
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 Monika Horner Primary Care Provider [facility] Attending Provider [phone] Carlos Nelson Attending Provider Jonh Pascual MD, [...] Unavail able Luís, Shiela Primary Care Unavailable [facility] [place] Attending Unavai lable Luís, Shiela Primary Care Unavailable [place] OLSKaron Attending Unavail able [place] OLS, Karon Referring Unavail able Luís, Shiela Primary Care Unavailable [facility] [place] Attending Unavai lable Luís, Shiela Primary Care Unavailable [facility] [place] Attending Unavai lable Luís, Shiela Primary Care Unavailable KatsaCarlos Villavicencio Attending Unavailable Luís, Shiela Primary Care Unavailable [place] OLS, Karon Attending Unavail able Luís, Shiela Primary Care Unavailable Crisostomo OLS, Babbaljeet Attending Unavailable Luís, Shiela Primary Care Unavailable [facility] [place] Attending Unavai lable Luís, Shiela Primary Care [...] Luís, Shiela Primary Care Unavailable [facility] [place] Attending Unavai lable Luís, Shiela Primary Care [...] Luís, Shiela Primary Care Unavailable [facility] [place] Attending Unavai lable Luís, Shiela Primary Care Unavailable [facility] [place] Attending Unavai lable Luís, Shiela Primary Care Unavailable Katsar[place] OLS, Peter Attending Unavailable Luís, Shiela Primary Care Unavailable K[place] OLS, Peter Attending Unavailable Luís, Shiela Primary Care Unavailable Katsar[place] OLS, Peter Attending Unavailable Luís, Shiela Primary Care Unavailable Katsaros OLS, Peter Attending Unavailable Luís, Shiela Primary Care Unavailable [facility] [place] Attending Unavai lable Luís, Shiela Primary Care Unavailable Katsar[place] OLS, Peter Attending Unavailable Luís, Shiela Primary Care Unavailable [place] OLS, Peter Attending Unavailable Luís, Shiela Primary Care Unavailable Crisostomo OLS, Babbaljeet Referring Unavailable Crisostomo OLS, Babbaljeet Attending Unavailable Luís, Shiela Primary Care Unavailable [facility] [place] Attending Unavai lable Luís, Shiela Primary Care Unavailable Crisostomo OLS, Babbaljeet Referring Unavailable Crisostomo OLS, Babbaljeet Attending Unavailable Luís, Shiela Primary Care Unavailable [place]atsar[place] OLS, Peter Attending Unavailable Luís, Shiela Primary Care Unavailable [facility] [place] Attending Unavai lable Luís, Shiela Primary Care [...] Attending Unavailable Luís, Shiela Primary Care Unavailable [facility] [place] Attending Unavai lable Luís, Shiela Primary Care Unavailable Kats[place] OLS, Peter Attending Unavailable Luís, Shiela Primary Care Unavailable [facility] [place] Attending Unavai lable Luís, Shiela Primary Care [...] Luís, Shiela Primary Care Unavailable [facility] [place] Attending Unavai lable Luís, Shiela Primary Care Unavailable [facility] [place] Attending Unavai lable Luís, Shiela Primary Care [...] Facility (13 sources) Morphine Drug Allergy [address] [facility] Work Phone: (15 sources) Alcohol Propensity to adverse reactions to drug 3 Rash, Hives, Other: See Comments, Other [facility] Work Phone: (1 source) Latex Drug Allergy 0 Rash [facility] (8 sources) Cortisone Drug Allergy 2 [facility] (7 sources) Latex Allergy to substance 0 Rash [facility] Medications Current Medications Medication Drug Class(es) Dates Sig (Normalized) Sig (Original) Acetaminophen (10 sources) Start: 10-21-2021 acetaminophen (TYLENOL) tablet 650 mg Start: 09-14-2021 acetaminophen (TYLENOL) 325 MG tablet 650 mg every 6 hours as needed 0 09/14/2021 Active take 2 tablets by mo [facility] every eight hours acetaminophen (TYLENOL) 325 [...] Start: 11-01-2021 take 1 capsule by mo [facility] once daily tamsulosin (FLOMAX) 0.4 MG [...] Comment on above: Take 1 capsule by [facility] three times daily. Complete [...] Comment on above: Take 1 tablet by [facility] twice daily. furosemide 40 mg oral [...] Units subcutaneously with meals and at bedtime. Yoruba Panax Ginseng 100 MG CAPS (8 sources) Yoruba Panax Ginseng 100 MG CAPS Quantity: 0 Refills: 0 Ordered: 06-Nov-2019 DO Active Yoruba Panax Ginseng 100 MG Oral Capsule (4 sources) Yoruba Panax Ginseng 100 MG Oral Capsule Refills: 0 Active Yoruba Panax Gin mayuri 100 MG Oral Capsule Refills: 0 DO Active Yoruba Panax Ginseng 100 MG Oral Capsule (2 sources) Yoruba Panax Gin mayuri 100 MG Oral Capsule [...] Comment on above: Take 1 tablet by [facility] three times daily as needed. methylPREDNISolone [...] once daily. 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 0 Active Comment on above: Take by mouth. petrolatum 0.41 mg/mg topical ointment (1 source) Start : 08-20 white petrolatum (AQUAPHOR) 41 % topical ointment Apply to affected area once daily. 0 08/20/2021 Active Comment on above: Apply to affected ar ea once daily. 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 terminal attack controller (current) use of anticoagulants] Onset: 10-21-2021 Episodic Other aftercare (1 source) Drug therapy finding; Translations: [longterm (current) use of anticoagulants] Episodic Other aftercare (2 sources) Other watermaster (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; Translations: [Other watermaster (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] Onset: 07-11-2024 Episodic Other [...] Coag (PPP) [Relative time] 2.4 {INR} Normal [facility] Comment on above: Order Comment: 411.2 Performed By: #### L 300.3900 ####[facility] [address] [place], [address] PT Coag (PPP) [Time] 26.6 s High 11.7-14.9 [facility] Comment on above: Order Comment: 411.2 Performed By: #### L 300.3900 ####[facility] [address] [place], [address] Prothrombin Time w/INRon INR Coag (PPP) [Relative time] 2.7 {INR} Normal [facility] Comment on above: Order Comment: 411-2 Performed By: #### L 300.3900 ####[facility] [address] [place], [address] PT Coag (PPP) [Time] 29.7 s High 11.7-14.9 [facility] Comment on above: Order Comment: 411-2 Performed By: #### L 300.3900 ####[facility] [address] [place], [address] Prothrombin Time w/INRon INR Coag (PPP) [Relative time] 2.4 {INR} Normal [facility] Comment on above: Order Comment: 411.1 Performed By: #### L 300.3900 ####[facility] [address] [place], [address] PT Coag (PPP) [Time] 26.6 s High 11.7-14.9 [facility] Comment on above: Order Comment: 411.1 Performed By: #### L 300.3900 ####[facility] [address] [place], [address] KEPPRA (LEVETIRACETAM)on KEPPRA 30.1 ug/mL Normal 10.0-40.0 [facility] Comment on above: Order Comment: 411.1 Result Comment: Perf ormed at: [facility] [id number] Director: Alpesh Vázquez MD, Phone: [phone] Performed By: #### L 300.3900, L3310.0000 ####[facility] [address] [place], [address] Prothrombin Time w/INRon INR Coag (PPP) [Relative time] 2.3 {INR} Normal [facility] Comment on above: Order Comment: 411.1 Performed By: #### L 300.3900, L3310.0000 ####[facility] [address] [place], [address] PT Coag (PPP) [Time] 26.1 s High 11.7-14.9 [facility] Comment on above: Order Comment: 411.1 Performed By: #### L 300.3900, L3310.0000 ####[facility] [address] [place], [address] KEPPRA (LEVETIRACETAM)on KEPPRA 27.6 ug/mL Normal 10.0-40.0 [facility] Comment on above: Order Comment: 411.1 Result Comment: Perf ormed at: [facility] [id number] Director: Alpesh Vázquez MD, Phone: [phone] Performed By: #### L 300.3900, L3310.0000 ####[facility] [address] [place], [address] Prothrombin Time w/INRon INR Coag (PPP) [Relative time] 2.2 {INR} Normal [facility] Comment on above: Order Comment: 411.1 Performed By: #### L 300.3900 ####[facility] [address] [place], [address] PT Coag (PPP) [Time] 24.5 s High 11.7-14.9 [facility] Comment on above: Order Comment: 411.1 Performed By: #### L 300.3900 ####[facility] [address] [place], [address] Prothrombin Time w/INRon INR Coag (PPP) [Relative time] 3.2 {INR} Normal [facility] Comment on above: Order Comment: 411.1 Performed By: #### L 300.3900, L3310.0000 ####[facility] [address] [place], [address] PT Coag (PPP) [Time] 33.1 s High 11.7-14.9 [facility] Comment on above: Order Comment: 411.1 Performed By: #### L 300.3900, L3310.0000 ####[facility] [address] [place], [address] Prothrombin Time w/INRon INR Coag (PPP) [Relative time] 2.7 {INR} Normal [facility] Comment on above: Order Comment: 411.1 Performed By: #### L 300.3900 ####[facility] [address] [place], [address] PT Coag (PPP) [Time] 29.1 s High 11.7-14.9 [facility] Comment on above: Order Comment: 411.1 Performed By: #### L 300.3900 ####[facility] [address] [place], [address] KEPPRA (LEVETIRACETAM)on KEPPRA 31.8 ug/mL Normal 10.0-40.0 [facility] Comment on above: Order Comment: 411-1 Result Comment: Perf ormed at: - [facility] [address] [id number] Director: Alpesh Vázquez MD, Phone: [phone] Performed By: #### L 300.3900, L3310.0000 ####[facility] [address] [place], [address] KEPPRA (LEVETIRACETAM)on KEPPRA 33.3 ug/mL Normal 10.0-40.0 [facility] Comment on above: Order Comment: 411.1 Result Comment: Perf ormed at: BN - [facility] [address] [id number] Director: Alpesh Vázquez MD, Phone: [phone] Performed By: #### L 3310.0000 ####[facility] [address] [place], [address] Prothrombin Time w/INRon INR Coag (PPP) [Relative time] 3.3 {INR} Normal [facility] Comment on above: Order Comment: 411-1 Performed By: #### L 300.3900, L3310.0000 ####[facility] [address] [place], [address] PT Coag (PPP) [Time] 34.0 s High 11.7-14.9 [facility] Comment on above: Order Comment: 411-1 Performed By: #### L 300.3900, L3310.0000 ####[facility] [address] [place], [address] Prothrombin Time w/INRon INR Coag (PPP) [Relative time] 2.8 {INR} Normal [facility] Comment on above: Order Comment: 411.1 Performed By: #### L 300.3900 ####[facility] [address] [place], [address] PT Coag (PPP) [Time] 30.0 s High 11.7-14.9 [facility] Comment on above: Order Comment: 411.1 Performed By: #### L 300.3900 ####[facility] [address] [place], [address] Basic Metabolic Profile (BMP )on 12-24-2024 BUN/CRE 19.2 RATIO Normal 10-20 [facility] Comment on above: Order Comment: 411-1 Performed By: #### L 100.0500, L500.2500 ####[facility] [address] [place], [address] Calcium [Mass/Vol] 8.8 mg/dL Normal 7.6-11.0 [facility] [place] Comment on above: Order Comment: 411-1 Performed By: #### L 100.0500, L500.2500 ####[facility] [address] [place], [address] Chloride [Moles/Vol] 103 mmol/L Normal 98-108 [facility] Comment on above: Order Comment: 411-1 Performed By: #### L 100.0500, L500.2500 ####[facility] [address] [place], [address] CO2 [Moles/Vol] 23.7 mmol/L Normal 21.0-32.0 [facility] Comment on above: Order Comment: 411-1 Performed By: #### L 100.0500, L500.2500 ####[facility] [address] [place], [address] Creatinine [Mass/Vol] 0.82 mg/dL Normal 0.70-1.20 [facility] Comment on above: Order Comment: 411-1 Performed By: #### L 100.0500, L500.2500 ####[facility] [address] [place], [address] GAP 13 Normal 5-15 [facility] Comment on above: Order Comment: 411-1 Performed By: #### L 100.0500, L500.2500 ####[facility] [address] [place], [address] GFR/1.73 sq M.predicted among non-blacks MDRD (S/P/Bld) [Vol rate/Area] 93 mL/min/{1.73_m2} Normal >60 [facility] Comment on above: Order Comment: 411-1 Result Comment: mL/m in/1.73m2 CKD-EPI Creatinine Equation (2020) Performed By: #### L 100.0500, L500.2500 ####[facility] [address] [place], [address] Glucose [Mass/Vol] 88 mg/dL Normal 70-99 [facility] Comment on above: Order Comment: 411-1 Performed By: #### L 100.0500, L500.2500 ####[facility] [address] [place], [address] Potassium [Moles/Vol] 4.2 mmol/L Normal 3.3-5.1 [facility] Comment on above: Order Comment: 411-1 Performed By: #### L 100.0500, L500.2500 ####[facility] [address] [place], [address] Sodium [Moles/Vol] 139 mmol/L Normal 133-145 [facility] Comment on above: Order Comment: 411-1 Performed By: #### L 100.0500, L500.2500 ####[facility] [address] [place], [address] Urea nitrogen [Mass/Vol] 16 mg/dL Normal 4-19 [facility] Comment on above: Order Comment: 411-1 Performed By: #### L 100.0500, L500.2500 ####[facility] [address] [place], [address] CBC-Complete Blood Cnt No Di ffon 12-24-2024 Erythrocyte distribution width (RBC) [Ratio] 15.4 % High 11.6-14.6 [facility] Comment on above: Order Comment: 411-1 Performed By: #### L 100.0500, L500.2500 ####[facility] [address] [place], [address] Hematocrit (Bld) [Volume fraction] 39.8 % Low 40-54 [facility] Comment on above: Order Comment: 411-1 Performed By: #### L 100.0500, L500.2500 ####[facility] [address] [place], [address] Hemoglobin (Bld) [Mass/Vol] 12.4 g/dL Low 13.0-16.5 [facility] Comment on above: Order Comment: 411-1 Performed By: #### L 100.0500, L500.2500 ####[facility] [address] [place], [address] MCH (RBC) [Entitic mass] 26.6 pg Low 27.0-32.0 [facility] Comment on above: Order Comment: 411-1 Performed By: #### L 100.0500, L500.2500 ####[facility] [address] [place], [address] MCHC (RBC) [Mass/Vol] 31.2 g/dL Low 32-36 [facility] Comment on above: Order Comment: 411-1 Performed By: #### L 100.0500, L500.2500 ####[facility] [address] [place], [address] MCV (RBC) [Entitic vol] 85.4 fL Normal 80-94 [facility] Comment on above: Order Comment: 411-1 Performed By: #### L 100.0500, L500.2500 ####[facility] [address] [place], [address] Platelet mean volume (Bld) [Entitic vol] 10.4 fL Normal 6.2-12.0 [facility] Comment on above: Order Comment: 411-1 Performed By: #### L 100.0500, L500.2500 ####[facility] [address] [place], [address] Platelets (Bld) [#/Vol] 290 10*3/uL Normal 150-450 [facility] Comment on above: Order Comment: 411-1 Performed By: #### L 100.0500, L500.2500 ####[facility] [address] [place], [address] RBC (Bld) [#/Vol] 4.66 10*6/uL Normal 4.6-6.2 [facility] Comment on above: Order Comment: 411-1 Performed By: #### L 100.0500, L500.2500 ####[facility] [address] [place], [address] RDW SD 48.1 fl High 35.1-43.9 [facility] Comment on above: Order Comment: 411-1 Performed By: #### L 100.0500, L500.2500 ####[facility] [address] [place], [address] WBC (Bld) [#/Vol] 16.6 10*3/uL High 4.4-11.0 [facility] Comment on above: Order Comment: 411-1 Performed By: #### L 100.0500, L500.2500 ####[facility] [address] [place], [address] Prothrombin Time w/INRon INR Coag (PPP) [Relative time] 2.6 {INR} Normal [facility] Comment on above: Order Comment: 411.1 Performed By: #### L 300.3900 ####[facility] [address] [place], [address] PT Coag (PPP) [Time] 28.8 s High 11.7-14.9 [facility] Comment on above: Order Comment: 411.1 Performed By: #### L 300.3900 ####[facility] [address] [place], [address] Prothrombin Time w/INRon INR Coag (PPP) [Relative time] 2.4 {INR} Normal [facility] Comment on above: Order Comment: 411.1 Performed By: #### L 300.3900 ####[facility] [address] [place], [address] PT Coag (PPP) [Time] 26.7 s High 11.7-14.9 [facility] Comment on above: Order Comment: 411.1 Performed By: #### L 300.3900 ####[facility] [address] [place], [address] Prothrombin Time w/INRon INR Coag (PPP) [Relative time] 2.3 {INR} Normal [facility] Comment on above: Order Comment: 411.1 Performed By: #### L 300.3900 ####[facility] [address] [place], [address] PT Coag (PPP) [Time] 25.7 s High 11.7-14.9 [facility] Comment on above: Order Comment: 411.1 Performed By: #### L 300.3900 ####[facility] [address] [place], [address] Prothrombin Time w/INRon INR Coag (PPP) [Relative time] 2.2 {INR} Normal [facility] Comment on above: Order Comment: 411-1 Performed By: #### L 300.3900 ####[facility] [address] [place], [address] PT Coag (PPP) [Time] 24.7 s High 11.7-14.9 [facility] Comment on above: Order Comment: 411-1 Performed By: #### L 300.3900 ####[facility] [address] [place], [address] Prothrombin Time w/INRon INR Coag (PPP) [Relative time] 2.2 {INR} Normal [facility] Comment on above: Order Comment: 411.1 Performed By: #### L 300.3900 ####[facility] [address] [place], [address] PT Coag (PPP) [Time] 25.0 s High 11.7-14.9 [facility] Comment on above: Order Comment: 411.1 Performed By: #### L 300.3900 ####[facility] [address] [place], [address] Prothrombin Time w/INRon INR Coag (PPP) [Relative time] 2.3 {INR} Normal [facility] Comment on above: Order Comment: 411.1 Performed By: #### L 300.3900 ####[facility] [address] [place], [address] PT Coag (PPP) [Time] 25.9 s High 11.7-14.9 [facility] Comment on above: Order Comment: 411.1 Performed By: #### L 300.3900 ####[facility] [address] [place], [address] Prothrombin Time w/INRon INR Coag (PPP) [Relative time] 2.5 {INR} Normal [facility] Comment on above: Order Comment: 411.1 Performed By: #### L 300.3900 ####[facility] [address] [place], [address] PT Coag (PPP) [Time] 27.3 s High 11.7-14.9 [facility] Comment on above: Order Comment: 411.1 Performed By: #### L 300.3900 ####[facility] [address] [place], [address] Prothrombin Time w/INRon INR Coag (PPP) [Relative time] 2.3 {INR} Normal [facility] Comment on above: Order Comment: 411-1 Performed By: #### L 300.3900 ####[facility] [address] [place], [address] PT Coag (PPP) [Time] 26.0 s High 11.7-14.9 [facility] Comment on above: Order Comment: 411-1 Performed By: #### L 300.3900 ####[facility] [address] [place], [address] Prothrombin Time w/INRon INR Coag (PPP) [Relative time] 3.1 {INR} Normal [facility] Comment on above: Order Comment: 411-1 Performed By: #### L 300.3900 ####[facility] [address] [place], [address] PT Coag (PPP) [Time] 32.8 s High 11.7-14.9 [facility] Comment on above: Order Comment: 411-1 Performed By: #### L 300.3900 ####[facility] [address] [place], [address] Prothrombin Time w/INRon INR Coag (PPP) [Relative time] 3.3 {INR} Normal [facility] Comment on above: Order Comment: 411.1 Performed By: #### L 300.3900 ####[facility] [address] [place], [address] PT Coag (PPP) [Time] 34.3 s High 11.7-14.9 [facility] Comment on above: Order Comment: 411.1 Performed By: #### L 300.3900 ####[facility] [address] [place], [address] Prothrombin Time w/INRon INR Coag (PPP) [Relative time] 2.8 {INR} Normal [facility] Comment on above: Order Comment: 411.2 Performed By: #### L 300.3900 ####[facility] [address] [place], [address] PT Coag (PPP) [Time] 30.0 s High 11.7-14.9 [facility] Comment on above: Order Comment: 411.2 Performed By: #### L 300.3900 ####[facility] [address] [place], [address] Prothrombin Time w/INRon INR Coag (PPP) [Relative time] 3.0 {INR} Normal [facility] Comment on above: Order Comment: 411.2 Performed By: #### L 300.3900 ####[facility] [address] [place], [address] PT Coag (PPP) [Time] 32.0 s High 11.7-14.9 [facility] Comment on above: Order Comment: 411.2 Performed By: #### L 300.3900 ####[facility] [address] [place], [address] Prothrombin Time w/INRon INR Coag (PPP) [Relative time] 2.9 {INR} Normal [facility] Comment on above: Order Comment: 411.2 Performed By: #### L 300.3900 ####[facility] [address] [place], [address] PT Coag (PPP) [Time] 30.7 s High 11.7-14.9 [facility] Comment on above: Order Comment: 411.2 Performed By: #### L 300.3900 ####[facility] [address] [place], [address] Prothrombin Time w/INRon INR Coag (PPP) [Relative time] 2.2 {INR} Normal [facility] Comment on above: Order Comment: 411.2 Performed By: #### L 300.3900 ####[facility] [address] [place], [address] PT Coag (PPP) [Time] 24.7 s High 11.7-14.9 [facility] Comment on above: Order Comment: 411.2 Performed By: #### L 300.3900 ####[facility] [address] [place], [address] Prothrombin Time w/INRon INR Coag (PPP) [Relative time] 2.6 {INR} Normal [facility] Comment on above: Order Comment: 411.2 Performed By: #### L 300.3900 ####[facility] [address] [place], [address] PT Coag (PPP) [Time] 28.7 s High 11.7-14.9 [facility] Comment on above: Order Comment: 411.2 Performed By: #### L 300.3900 ####[facility] [address] [place], [address] Prothrombin Time w/INRon INR Coag (PPP) [Relative time] 3.1 {INR} Normal [facility] Comment on above: Order Comment: 411.2 Performed By: #### L 300.3900 ####[facility] [address] [place], [address] PT Coag (PPP) [Time] 33.0 s High 11.7-14.9 [facility] Comment on above: Order Comment: 411.2 Performed By: #### L 300.3900 ####[facility] [address] [place], [address] Prothrombin Time w/INRon INR Coag (PPP) [Relative time] 3.0 {INR} Normal [facility] Comment on above: Order Comment: 411-2 Performed By: #### L 300.3900 ####[facility] [address] [place], [address] PT Coag (PPP) [Time] 31.4 s High 11.7-14.9 [facility] Comment on above: Order Comment: 411-2 Performed By: #### L 300.3900 ####[facility] [address] [place], [address] International normalized rat io (INR) calculationOrdered By: Karon Corrales on 10-30-2024 INR Coag (Bld) [Relative time] 2.4 {INR} [facility] Prothrombin Time w/INRon INR Coag (PPP) [Relative time] 2.4 {INR} Normal [facility] Comment on above: Performed By: #### L 300.3900 ####[facility] [address] [place], [address] PT Coag (PPP) [Time] 26.3 s High 11.7-14.9 [facility] Comment on above: Performed By: #### L 300.3900 ####[facility] [address] [place], [address] Prothrombin timeOrdered By: Karon Corrales on 10-30-2024 PT Coag (PPP) [Time] 26.3 s High 11.7-14.9 [facility] International normalized rat io (INR) calculationOrdered By: Karon Corrales on 10-27-2024 INR Coag (Bld) [Relative time] 2.2 {INR} [facility] Prothrombin Time w/INRon INR Coag (PPP) [Relative time] 2.2 {INR} Normal [facility] Comment on above: Order Comment: 411.2 Performed By: #### L 300.3900 ####[facility] [address] [place], [place], [phone] Prothrombin timeOrdered By: Karon Corrales on 10-27-2024 PT Coag (PPP) [Time] 24.5 s High 11.7-14.9 [facility] Comment on above: Order Comment: 411.2 Performed By: #### L 300.3900 ####[facility] [address] [place], [place], [address] International normalized rat io (INR) calculationOrdered By: Karon Corrales on 10-23-2024 INR Coag (Bld) [Relative time] 2.5 {INR} [facility] Prothrombin Time w/INRon INR Coag (PPP) [Relative time] 2.5 {INR} Normal [facility] Comment on above: Order Comment: 411.2 Performed By: #### L 300.3900 ####[facility] [address] [place], [place], [phone] PT Coag (PPP) [Time] 27.9 s High 11.7-14.9 [facility] Comment on above: Order Comment: 411.2 Performed By: #### L 300.3900 ####[facility] [address] [place], [place], [phone] Prothrombin timeOrdered By: Karon Corrales on 10-23-2024 PT Coag (PPP) [Time] 27.9 s High 11.7-14.9 [facility] International normalized rat io (INR) calculationOrdered By: Karon Corrales on 10-20-2024 INR Coag (Bld) [Relative time] 3.1 {INR} [facility] Prothrombin Time w/INRon INR Coag (PPP) [Relative time] 3.1 {INR} Normal [facility] Comment on above: Order Comment: 411.2 Performed By: #### L 300.3900 ####[facility] [address] [place], [place], [phone] PT Coag (PPP) [Time] 32.8 s High 11.7-14.9 [facility] Comment on above: Order Comment: 411.2 Performed By: #### L 300.3900 ####[facility] [address] [place], [place], [phone] Prothrombin timeOrdered By: Karon Corrales on 10-20-2024 PT Coag (PPP) [Time] 32.8 s High 11.7-14.9 [facility] International normalized rat io (INR) calculationOrdered By: Karon Corrales on 10-16-2024 INR Coag (Bld) [Relative time] 2.8 {INR} [facility] Prothrombin Time w/INRon INR Coag (PPP) [Relative time] 2.8 {INR} Normal [facility] Comment on above: Order Comment: 411.2 Performed By: #### L 300.3900 ####[facility] [address] [place], [place], [phone] PT Coag (PPP) [Time] 30.4 s High 11.7-14.9 [facility] Comment on above: Order Comment: 411.2 Performed By: #### L 300.3900 ####[facility] [address] [place], [place], [phone] Prothrombin timeOrdered By: Karon Corrales on 10-16-2024 PT Coag (PPP) [Time] 30.4 s High 11.7-14.9 [facility] International normalized rat io (INR) calculationOrdered By: Carlos Cavazos on 10-13-2024 INR Coag (Bld) [Relative time] 1.9 {INR} [facility] Prothrombin Time w/INRon INR Coag (PPP) [Relative time] 1.9 {INR} Normal [facility] Comment on above: Order Comment: 411-2 Performed By: #### L 300.3900 ####[facility] [address] [place], [address] PT Coag (PPP) [Time] 22.4 s High 11.7-14.9 [facility] Comment on above: Order Comment: 411-2 Performed By: #### L 300.3900 ####[facility] [address] [place], [place], [phone] Prothrombin timeOrdered By: Carlos Cavazos on 10-13-2024 PT Coag (PPP) [Time] 22.4 s High 11.7-14.9 [facility] International normalized rat io (INR) calculationOrdered By: Karon Corrales on 10-09-2024 INR Coag (Bld) [Relative time] 3.0 {INR} [facility] Prothrombin Time w/INRon INR Coag (PPP) [Relative time] 3.0 {INR} Normal [facility] Comment on above: Order Comment: 411.2 Performed By: #### L 300.3900 ####[facility] [address] [place], [place], [phone] Prothrombin timeOrdered By: Karon Corrales on 10-09-2024 PT Coag (PPP) [Time] 31.8 s High 11.7-14.9 [facility] Comment on above: Order Comment: 411.2 Performed By: #### L 300.3900 ####[facility] [address] [place], [address] International normalized rat io (INR) calculationOrdered By: Carlos Cavazos on 10-06-2024 INR Coag (Bld) [Relative time] 2.7 {INR} [facility] Prothrombin Time w/INRon INR Coag (PPP) [Relative time] 2.7 {INR} Normal [facility] Comment on above: Order Comment: 411-2 Performed By: #### L 300.3900 ####[facility] [address] [place], [address] PT Coag (PPP) [Time] 29.6 s High 11.7-14.9 [facility] Comment on above: Order Comment: 411-2 Performed By: #### L 300.3900 ####[facility] [address] [place], [address] Prothrombin timeOrdered By: Carlos Cavazos on 10-06-2024 PT Coag (PPP) [Time] 29.6 s High 11.7-14.9 [facility] International normalized rat io (INR) calculationOrdered By: Karon Corrales on 10-02-2024 INR Coag (Bld) [Relative time] 2.3 {INR} [facility] Prothrombin Time w/INRon INR Coag (PPP) [Relative time] 2.3 {INR} Normal [facility] Comment on above: Order Comment: 411.2 Performed By: #### L 300.3900 ####[facility] [address] [place], [place], [phone] PT Coag (PPP) [Time] 26.0 s High 11.7-14.9 [facility] Comment on above: Order Comment: 411.2 Performed By: #### L 300.3900 ####[facility] [address] [place], [address] Prothrombin timeOrdered By: Karon Corrales on 10-02-2024 PT Coag (PPP) [Time] 26.0 s High 11.7-14.9 [facility] International normalized rat io (INR) calculationOrdered By: Karon Corrales on 09-30-2024 INR Coag (Bld) [Relative time] 3.1 {INR} [facility] Prothrombin Time w/INRon INR Coag (PPP) [Relative time] 3.1 {INR} Normal [facility] Comment on above: Order Comment: 411.2 Performed By: #### L 300.3900 ####[facility] [address] [place], [address] PT Coag (PPP) [Time] 32.6 s High 11.7-14.9 [facility] Comment on above: Order Comment: 411.2 Performed By: #### L 300.3900 ####[facility] [address] [place], [place], [phone] Prothrombin timeOrdered By: Karon Corrales on 09-30-2024 PT Coag (PPP) [Time] 32.6 s High 11.7-14.9 [facility] International normalized rat io (INR) calculationOrdered By: Karon Corrales on 09-25-2024 INR Coag (Bld) [Relative time] 2.4 {INR} [facility] Prothrombin Time w/INRon INR Coag (PPP) [Relative time] 2.4 {INR} Normal [facility] Comment on above: Order Comment: 411.2 Performed By: #### L 300.3900 ####[facility] [address] [place], [place], [phone] Prothrombin timeOrdered By: Karon Corrales on 09-25-2024 PT Coag (PPP) [Time] 26.7 s High 11.7-14.9 [facility] Comment on above: Order Comment: 411.2 Performed By: #### L 300.3900 ####[facility] [address] [place], [address] International normalized rat io (INR) calculationOrdered By: Karon Corrales on 05-19-2025 INR Coag (Bld) [Relative time] 2.5 {INR} [facility] Prothrombin Time w/INRon INR Coag (PPP) [Relative time] 2.5 {INR} Normal [facility] Comment on above: Order Comment: 411.2 Performed By: #### L 300.3900 ####[facility] [address] [place], [place], [phone] Prothrombin timeOrdered By: Karon Corrales on 09-22-2024 PT Coag (PPP) [Time] 27.4 s High 11.7-14.9 [facility] Comment on above: Order Comment: 411.2 Performed By: #### L 300.3900 ####[facility] [address] [place], [place], [phone] International normalized rat io (INR) calculationOrdered By: Karon Corrales on 09-18-2024 INR Coag (Bld) [Relative time] 2.2 {INR} [facility] Prothrombin Time w/INRon INR Coag (PPP) [Relative time] 2.2 {INR} Normal [facility] Comment on above: Order Comment: 411.2 Performed By: #### L 300.3900 ####[facility] [address] [place], [place], [address] PT Coag (PPP) [Time] 25.1 s High 11.7-14.9 [facility] Comment on above: Order Comment: 411.2 Performed By: #### L 300.3900 ####[facility] [address] [place], [place], [phone]([phone] Prothrombin timeOrdered By: Karon Corrales on 09-18-2024 PT Coag (PPP) [Time] 25.1 s High 11.7-14.9 [facility] International normalized rat io (INR) calculationOrdered By: Carlos Cavazos on 09-15-2024 INR Coag (Bld) [Relative time] 2.4 {INR} [facility] Prothrombin Time w/INRon INR Coag (PPP) [Relative time] 2.4 {INR} Normal [facility] Comment on above: Order Comment: 411-2 Performed By: #### L 300.3900 ####[facility] [address] [place], [address] Prothrombin timeOrdered By: Carlos Cavazos on 09-15-2024 PT Coag (PPP) [Time] 26.3 s High 11.7-14.9 [facility] Comment on above: Order Comment: 411-2 Performed By: #### L 300.3900 ####[facility] [address] [place], [place], [phone] International normalized rat io (INR) calculationOrdered By: Karon Corrales on 09-11-2024 INR Coag (Bld) [Relative time] 2.0 {INR} [facility] Prothrombin Time w/INRon INR Coag (PPP) [Relative time] 2.0 {INR} Normal [facility] Comment on above: Order Comment: 411.2 Performed By: #### L 300.3900 ####[facility] [address] [place], [place], [phone] PT Coag (PPP) [Time] 22.9 s High 11.7-14.9 [facility] Comment on above: Order Comment: 411.2 Performed By: #### L 300.3900 ####[facility] [address] [place], [place], [phone] Prothrombin timeOrdered By: Karon oCrrales on 09-11-2024 PT Coag (PPP) [Time] 22.9 s High 11.7-14.9 [facility] International normalized rat io (INR) calculationOrdered By: Karon Corrales on 09-08-2024 INR Coag (Bld) [Relative time] 2.0 {INR} [facility] Prothrombin Time w/INRon INR Coag (PPP) [Relative time] 2.0 {INR} Normal [facility] Comment on above: Order Comment: 411.2 Performed By: #### L 300.3900 ####[facility] [address] [place], [place], [phone] PT Coag (PPP) [Time] 22.8 s High 11.7-14.9 [facility] Comment on above: Order Comment: 411.2 Performed By: #### L 300.3900 ####[facility] [address] [place], [place], [phone] Prothrombin timeOrdered By: Karon Corrales on 09-08-2024 PT Coag (PPP) [Time] 22.8 s High 11.7-14.9 [facility] International normalized rat io (INR) calculationOrdered By: Carlos Cavazos on 09-04-2024 INR Coag (Bld) [Relative time] 1.7 {INR} [facility] Prothrombin Time w/INRon INR Coag (PPP) [Relative time] 1.7 {INR} Normal [facility] Comment on above: Order Comment: 411-2 Performed By: #### L 300.3900 ####[facility] [address] [place], [place], [phone] PT Coag (PPP) [Time] 20.8 s High 11.7-14.9 [facility] Comment on above: Order Comment: 411-2 Performed By: #### L 300.3900 ####[facility] [address] [place], [place], [phone] Prothrombin timeOrdered By: Carlos Cavazos on 09-04-2024 PT Coag (PPP) [Time] 20.8 s High 11.7-14.9 [facility] International normalized rat io (INR) calculationOrdered By: Carlos Cavazos on 09-01-2024 INR Coag (Bld) [Relative time] 2.9 {INR} [facility] Prothrombin Time w/INRon INR Coag (PPP) [Relative time] 2.9 {INR} Normal [facility] Comment on above: Order Comment: 411-2 Performed By: #### L 300.3900 ####[facility] [address] [place], [place], [phone] PT Coag (PPP) [Time] 30.7 s High 11.7-14.9 [facility] Comment on above: Order Comment: 411-2 Performed By: #### L 300.3900 ####[facility] [address] [place], [place], [phone] Prothrombin timeOrdered By: Carlos Cavazos on 09-01-2024 PT Coag (PPP) [Time] 30.7 s High 11.7-14.9 [facility] International normalized rat io (INR) calculationOrdered By: Carlos Cavazos on 08-28-2024 INR Coag (Bld) [Relative time] 2.4 {INR} [facility] Prothrombin Time w/INRon INR Coag (PPP) [Relative time] 2.4 {INR} Normal [facility] Comment on above: Order Comment: 411-2 Performed By: #### L 300.3900 ####[facility] [address] [place], [place], [phone] Prothrombin timeOrdered By: Carlos Cavazos on 08-28-2024 PT Coag (PPP) [Time] 26.7 s High 11.7-14.9 [facility] Comment on above: Order Comment: 411-2 Performed By: #### L 300.3900 ####[facility] [address] [place], [place], [phone] International normalized rat io (INR) calculationOrdered By: Karon Corrales on 08-25-2024 INR Coag (Bld) [Relative time] 1.8 {INR} [facility] Prothrombin Time w/INRon INR Coag (PPP) [Relative time] 1.8 {INR} Normal [facility] Comment on above: Order Comment: 411.2 Performed By: #### L 300.3900 ####[facility] [address] [place], [address] PT Coag (PPP) [Time] 21.6 s High 11.7-14.9 [facility] Comment on above: Order Comment: 411.2 Performed By: #### L 300.3900 ####[facility] [address] [place], [place], [phone] Prothrombin timeOrdered By: Karon Corrales on 08-25-2024 PT Coag (PPP) [Time] 21.6 s High 11.7-14.9 [facility] International normalized rat io (INR) calculationOrdered By: Karon Corrales on 08-21-2024 INR Coag (Bld) [Relative time] 1.7 {INR} [facility] PSA, total screeningOrdered By: Karon Corrales on 08-21-2024 Prostate Specific Antigen Screen 0.52 ng/mL 0.02-4.00 [facility] Comment on above: This test was perfor med using the [employer] tPSA method. Measured values of a patient sample can vary depending on the testing procedure used. PSA values determined on patient samples by different testing procedures cannot be used interchangeably. If there is a change in PSA assays while monitoring therapy, sequential testing should be performed to confirm baseline values. PSA,Total - Annual Screenon 08-21-2024 PSA,TOT SCREEN 0.52 ng/mL Normal 0.02-4.00 [facility] Comment [...] values. Performed By: #### L 300.3900, L501.9910 ####[facility] [address] [place], [address] Prothrombin Time w/INRon INR Coag (PPP) [Relative time] 1.7 {INR} Normal [facility] Comment on above: Order Comment: 411.2 Performed By: #### L 300.3900, L501.9910 ####[facility] [address] [place], [address] Prothrombin timeOrdered By: Karon Corrales on 08-21-2024 PT Coag (PPP) [Time] 20.1 s High 11.7-14.9 [facility] Comment on above: Order Comment: 411.2 Performed By: #### L 300.3900, L501.9910 ####[facility] [address] [place], [address] International normalized rat io (INR) calculationOrdered By: Karon Corrales on 08-18-2024 INR Coag (Bld) [Relative time] 3.0 {INR} [facility] Prothrombin Time w/INRon INR Coag (PPP) [Relative time] 3.0 {INR} Normal [facility] Comment on above: Order Comment: 411.2 Performed By: #### L 300.3900 ####[facility] [address] [place], [address] PT Coag (PPP) [Time] 31.4 s High 11.7-14.9 [facility] Comment on above: Order Comment: 411.2 Performed By: #### L 300.3900 ####[facility] [address] [place], [address] Prothrombin timeOrdered By: Karon Corrales on 08-18-2024 PT Coag (PPP) [Time] 31.4 s High 11.7-14.9 [facility] International normalized rat io (INR) calculationOrdered By: Karon Corrales on 08-14-2024 INR Coag (Bld) [Relative time] 2.4 {INR} [facility] Prothrombin Time w/INRon INR Coag (PPP) [Relative time] 2.4 {INR} Normal [facility] Comment on above: Order Comment: 411.2 Performed By: #### L 300.3900 ####[facility] [address] [place], [address] PT Coag (PPP) [Time] 26.6 s High 11.7-14.9 [facility] Comment on above: Order Comment: 411.2 Performed By: #### L 300.3900 ####[facility] [address] [place], [address] Prothrombin timeOrdered By: Karon Corrales on 08-14-2024 PT Coag (PPP) [Time] 26.6 s High 11.7-14.9 [facility] International normalized rat io (INR) calculationOrdered By: Karon Corrales on 08-11-2024 INR Coag (Bld) [Relative time] 3.1 {INR} [facility] Prothrombin Time w/INRon INR Coag (PPP) [Relative time] 3.1 {INR} Normal [facility] Comment on above: Order Comment: 411.2 Performed By: #### L 300.3900 ####[facility] [address] [place], [address] PT Coag (PPP) [Time] 32.4 s High 11.7-14.9 [facility] Comment on above: Order Comment: 411.2 Performed By: #### L 300.3900 ####[facility] [address] [place], [address] Prothrombin timeOrdered By: Karon Corrales on 08-11-2024 PT Coag (PPP) [Time] 32.4 s High 11.7-14.9 [facility] International normalized rat io (INR) calculationOrdered By: Carlos Cavazos on 08-07-2024 INR Coag (Bld) [Relative time] 2.8 {INR} [facility] Prothrombin Time w/INRon INR Coag (PPP) [Relative time] 2.8 {INR} Normal [facility] Comment on above: Order Comment: 411-2 Performed By: #### L 300.3900 ####[facility] [address] [place], [address] PT Coag (PPP) [Time] 30.3 s High 11.7-14.9 [facility] Comment on above: Order Comment: 411-2 Performed By: #### L 300.3900 ####[facility] [address] [place], [address] Prothrombin timeOrdered By: Carlos Cavazos on 08-07-2024 PT Coag (PPP) [Time] 30.3 s High 11.7-14.9 [facility] [employer] normalized rat io (INR) calculationOrdered By: Carlos Cavazos on 08-04-2024 INR Coag (Bld) [Relative time] 1.9 {INR} [facility] Prothrombin Time w/INRon INR Coag (PPP) [Relative time] 1.9 {INR} Normal [facility] Comment on above: Order Comment: 411-2 Performed By: #### L 300.3900 ####[facility] [address] [place], [address] PT Coag (PPP) [Time] 22.1 s High 11.7-14.9 [facility] Comment on above: Order Comment: 411-2 Performed By: #### L 300.3900 ####[facility] [address] [place], [place], [phone] Prothrombin timeOrdered By: Carlos Cavazos on 08-04-2024 PT Coag (PPP) [Time] 22.1 s High 11.7-14.9 [facility] [employer] normalized rat io (INR) calculationOrdered By: Karon Corrales on 07-31-2024 INR Coag (Bld) [Relative time] 3.2 {INR} [facility] Prothrombin Time w/INRon INR Coag (PPP) [Relative time] 3.2 {INR} Normal [facility] Comment on above: Order Comment: 411.2 Performed By: #### L 300.3900 ####[facility] [address] [place], [place], [phone] PT Coag (PPP) [Time] 33.5 s High 11.7-14.9 [facility] Comment on above: Order Comment: 411.2 Performed By: #### L 300.3900 ####[facility] [address] [place], [place], [phone] Prothrombin timeOrdered By: Karon Corrales on 07-31-2024 PT Coag (PPP) [Time] 33.5 s High 11.7-14.9 [facility] [employer] normalized rat io (INR) calculationOrdered By: Karon Corrales on 07-28-2024 INR Coag (Bld) [Relative time] 2.7 {INR} [facility] Prothrombin Time w/INRon INR Coag (PPP) [Relative time] 2.7 {INR} Normal [facility] Comment on above: Order Comment: 411.2 Performed By: #### L 300.3900 ####[facility] [address] [place], [place], [phone](196) PT Coag (PPP) [Time] 29.6 s High 11.7-14.9 [facility] Comment on above: Order Comment: 411.2 Performed By: #### L 300.3900 ####[facility] [address] [place], [place], [phone] Prothrombin timeOrdered By: Karon Corrales on 07-28-2024 PT Coag (PPP) [Time] 29.6 s High 11.7-14.9 [facility] [employer] normalized rat io (INR) calculationOrdered By: Carlos Cavazos on 07-25-2024 INR Coag (Bld) [Relative time] 3.0 {INR} [facility] Prothrombin Time w/INRon INR Coag (PPP) [Relative time] 3.0 {INR} Normal [facility] Comment on above: Order Comment: 411-2 Performed By: #### L 300.3900 ####[facility] [address] [place], [address] Prothrombin timeOrdered By: Carlos Cavazos on 07-25-2024 PT Coag (PPP) [Time] 32.1 s High 11.7-14.9 [facility] Comment on above: Order Comment: 411-2 Performed By: #### L 300.3900 ####[facility] [address] [place], [place], [phone] International normalized rat io (INR) calculationOrdered By: Karon Corrales on 07-24-2024 INR Coag (Bld) [Relative time] 3.4 {INR} [facility] Prothrombin Time w/INRon INR Coag (PPP) [Relative time] 3.4 {INR} Normal [facility] Comment on above: Order Comment: 411.2 Performed By: #### L 300.3900 ####[facility] [address] [place], [place], [phone] Prothrombin timeOrdered By: Karon Corrales on 07-24-2024 PT Coag (PPP) [Time] 35.4 s High 11.7-14.9 [facility] Comment on above: Order Comment: 411.2 Performed By: #### L 300.3900 ####[facility] [address] [place], [address] International normalized rat io (INR) calculationOrdered By: Karon Corrales on 07-21-2024 INR Coag (Bld) [Relative time] 1.6 {INR} [facility] Prothrombin Time w/INRon INR Coag (PPP) [Relative time] 1.6 {INR} Normal [facility] Comment on above: Order Comment: 411.2 Performed By: #### L 300.3900 ####[facility] [address] [place], [address] PT Coag (PPP) [Time] 19.6 s High 11.7-14.9 [facility] Comment on above: Order Comment: 411.2 Performed By: #### L 300.3900 ####[facility] [address] [place], [address] Prothrombin timeOrdered By: Karon Corrales on 07-21-2024 PT Coag (PPP) [Time] 19.6 s High 11.7-14.9 [facility] [employer] normalized rat io (INR) calculationOrdered By: Karon Corrales on 07-17-2024 INR Coag (Bld) [Relative time] 2.9 {INR} [facility] Prothrombin Time w/INRon INR Coag (PPP) [Relative time] 2.9 {INR} Normal [facility] Comment on above: Order Comment: 411.2 Performed By: #### L 300.3900 ####[facility] [address] [place], [address] PT Coag (PPP) [Time] 31.1 s High 11.7-14.9 [facility] Comment on above: Order Comment: 411.2 Performed By: #### L 300.3900 ####[facility] [address] [place], [address] Prothrombin timeOrdered By: Karon Corrales on 07-17-2024 PT Coag (PPP) [Time] 31.1 s High 11.7-14.9 [facility] [employer] normalized rat io (INR) calculationOrdered By: Carlos Cavazos on 07-14-2024 INR Coag (Bld) [Relative time] 2.5 {INR} [facility] Prothrombin Time w/INRon INR Coag (PPP) [Relative time] 2.5 {INR} Normal [facility] Comment on above: Order Comment: 411-2 Performed By: #### L 300.3900 ####[facility] [address] [place], [place], [phone]) PT Coag (PPP) [Time] 27.5 s High 11.7-14.9 [facility] Comment on above: Order Comment: 411-2 Performed By: #### L 300.3900 ####[facility] [address] [place], [address] Prothrombin timeOrdered By: Carlos Cavazos on 07-14-2024 PT Coag (PPP) [Time] 27.5 s High 11.7-14.9 [facility] [employer] normalized rat io (INR) calculationOrdered By: Carlos Cavazos on 07-11-2024 INR Coag (Bld) [Relative time] 2.5 {INR} [facility] Prothrombin Time w/INRon INR Coag (PPP) [Relative time] 2.5 {INR} Normal [facility] Comment on above: Performed By: #### L 300.3900 ####[facility] [address] [place], [place], [phone]) PT Coag (PPP) [Time] 27.7 s High 11.7-14.9 [facility] Comment on above: Performed By: #### L 300.3900 ####[facility] [address] [place], [place], [phone] Prothrombin timeOrdered By: Carlos Cavazos on 07-11-2024 PT Coag (PPP) [Time] 27.7 s High 11.7-14.9 [facility] Prothrombin Time w/INRon INR Normal [facility] Comment on above: Order Comment: 411.2 Result Comment: QNS TUBE NOT FILLED Performed By: #### L 300.3900 ####[facility] [address] [place], [address] PROTIME Normal 11.7-14.9 [facility] Comment on above: Order Comment: 411.2 Result Comment: QNS TUBE NOT FILLED Performed By: #### L 300.3900 ####[facility] [address] [place], [address] International normalized rat io (INR) calculationOrdered By: Kvng Crisostomo on 07-07-2024 INR Coag (Bld) [Relative time] 2.5 {INR} [facility] Prothrombin Time w/INRon INR Coag (PPP) [Relative time] 2.5 {INR} Normal [facility] Comment on above: Order Comment: 411.2 Performed By: #### L 300.3900 ####[facility] [address] [place], [address] PT Coag (PPP) [Time] 27.2 s High 11.7-14.9 [facility] Comment on above: Order Comment: 411.2 Performed By: #### L 300.3900 ####[facility] [address] [place], [address] Prothrombin timeOrdered By: Kvng Crisostomo on 07-07-2024 PT Coag (PPP) [Time] 27.2 s High 11.7-14.9 [facility] [employer] normalized rat io (INR) calculationOrdered By: Kvng Crisostomo on 07-03-2024 INR Coag (Bld) [Relative time] 2.5 {INR} [facility] Prothrombin Time w/INRon INR Coag (PPP) [Relative time] 2.5 {INR} Normal [facility] Comment on above: Order Comment: 411.2 Performed By: #### L 300.3900 ####[facility] [address] [place], [address] PT Coag (PPP) [Time] 27.2 s High 11.7-14.9 [facility] Comment on above: Order Comment: 411.2 Performed By: #### L 300.3900 ####[facility] [address] [place], [address] Prothrombin timeOrdered By: Elizabethet Andressa on 07-03-2024 PT Coag (PPP) [Time] 27.2 s High 11.7-14.9 [facility] [employer] normalized rat io (INR) calculationOrdered By: Babsigifredojeet Crisostomo on 06-30-2024 INR Coag (Bld) [Relative time] 2.4 {INR} [facility] Prothrombin Time w/INRon INR Coag (PPP) [Relative time] 2.4 {INR} Normal [facility] Comment on above: Order Comment: 411.2 Performed By: #### L 300.3900 ####[facility] [address] [place], [address] PT Coag (PPP) [Time] 26.8 s High 11.7-14.9 [facility] Comment on above: Order Comment: 411.2 Performed By: #### L 300.3900 ####[facility] [address] [place], [address] Prothrombin timeOrdered By: Babjulyet Andressa on 06-30-2024 PT Coag (PPP) [Time] 26.8 s High 11.7-14.9 [facility] [employer] normalized rat io (INR) calculationOrdered By: Babbaljeet Crisostomo on 06-26-2024 INR Coag (Bld) [Relative time] 2.5 {INR} [facility] Prothrombin Time w/INRon INR Coag (PPP) [Relative time] 2.5 {INR} Normal [facility] Comment on above: Order Comment: 411.2 Performed By: #### L 300.3900 ####[facility] [address] [place], [address] PT Coag (PPP) [Time] 27.5 s High 11.7-14.9 [facility] Comment on above: Order Comment: 411.2 Performed By: #### L 300.3900 ####[facility] [address] [place], [address] Prothrombin timeOrdered By: Kvng Crisostomo on 06-26-2024 PT Coag (PPP) [Time] 27.5 s High 11.7-14.9 [facility] [employer] normalized rat io (INR) calculationOrdered By: Carlos Cavazos on 06-23-2024 INR Coag (Bld) [Relative time] 2.8 {INR} [facility] Prothrombin Time w/INRon INR Coag (PPP) [Relative time] 2.8 {INR} Normal [facility] Comment on above: Order Comment: 411-2 Performed By: #### L 300.3900 ####[facility] [address] [place], [address] PT Coag (PPP) [Time] 29.7 s High 11.7-14.9 [facility] Comment on above: Order Comment: 411-2 Performed By: #### L 300.3900 ####[facility] [address] [place], [address] Prothrombin timeOrdered By: Carlos Cavazos on 06-23-2024 PT Coag (PPP) [Time] 29.7 s High 11.7-14.9 [facility] [employer] normalized rat io (INR) calculationOrdered By: Kvng Crisostomo on 06-19-2024 INR Coag (Bld) [Relative time] 2.6 {INR} [facility] Prothrombin Time w/INRon INR Coag (PPP) [Relative time] 2.6 {INR} Normal [facility] Comment on above: Order Comment: 411.2 Performed By: #### L 300.3900 ####[facility] [address] [place], [address] PT Coag (PPP) [Time] 28.6 s High 11.7-14.9 [facility] Comment on above: Order Comment: 411.2 Performed By: #### L 300.3900 ####[facility] [address] [place], [address] Prothrombin timeOrdered By: Kvng Crisostomo on 06-19-2024 PT Coag (PPP) [Time] 28.6 s High 11.7-14.9 [facility] [employer] normalized rat io (INR) calculationOrdered By: Elizabethet Andressa on 06-16-2024 INR Coag (Bld) [Relative time] 2.5 {INR} [facility] Prothrombin Time w/INRon INR Coag (PPP) [Relative time] 2.5 {INR} Normal [facility] Comment on above: Order Comment: 411.2 Performed By: #### L 300.3900 ####[facility] [address] [place], [address] PT Coag (PPP) [Time] 27.3 s High 11.7-14.9 [facility] Comment on above: Order Comment: 411.2 Performed By: #### L 300.3900 ####[facility] [address] [place], [address] Prothrombin timeOrdered By: Kvng Crisostomo on 06-16-2024 PT Coag (PPP) [Time] 27.3 s High 11.7-14.9 [facility] [employer] normalized rat io (INR) calculationOrdered By: Babbaljeet Crisostomo on 06-12-2024 INR Coag (Bld) [Relative time] 2.1 {INR} [facility] Prothrombin Time w/INRon INR Coag (PPP) [Relative time] 2.1 {INR} Normal [facility] Comment on above: Order Comment: 411.2 Performed By: #### L 300.3900 ####[facility] [address] [place], [place], [phone]) PT Coag (PPP) [Time] 24.0 s High 11.7-14.9 [facility] Comment on above: Order Comment: 411.2 Performed By: #### L 300.3900 ####[facility] [address] [place], [address] Prothrombin timeOrdered By: Kvng Crisostomo on 06-12-2024 PT Coag (PPP) [Time] 24.0 s High 11.7-14.9 [facility] [employer] normalized rat io (INR) calculationOrdered By: Carlos Cavazos on 06-09-2024 INR Coag (Bld) [Relative time] 1.5 {INR} [facility] Prothrombin Time w/INRon INR Coag (PPP) [Relative time] 1.5 {INR} Normal [facility] Comment on above: Order Comment: 411-2 Performed By: #### L 300.3900 ####[facility] [address] [place], [address] PT Coag (PPP) [Time] 18.0 s High 11.7-14.9 [facility] Comment on above: Order Comment: 411-2 Performed By: #### L 300.3900 ####[facility] [address] [place], [address] Prothrombin timeOrdered By: Carlos Cavazos on 06-09-2024 PT Coag (PPP) [Time] 18.0 s High 11.7-14.9 [facility] [employer] normalized rat io (INR) calculationOrdered By: Kvng Crisostomo on 06-05-2024 INR Coag (Bld) [Relative time] 2.8 {INR} [facility] Prothrombin Time w/INRon INR Coag (PPP) [Relative time] 2.8 {INR} Normal [facility] Comment on above: Order Comment: 411.2 Performed By: #### L 300.3900 ####[facility] [address] [place], [address] PT Coag (PPP) [Time] 30.3 s High 11.7-14.9 [facility] Comment on above: Order Comment: 411.2 Performed By: #### L 300.3900 ####[facility] [address] [place], [address] Prothrombin timeOrdered By: Kvng Crisostomo on 06-05-2024 PT Coag (PPP) [Time] 30.3 s High 11.7-14.9 [facility] [employer] normalized rat io (INR) calculationOrdered By: Kvng Crisostomo on 06-02-2024 INR Coag (Bld) [Relative time] 2.6 {INR} [facility] Prothrombin Time w/INRon INR Coag (PPP) [Relative time] 2.6 {INR} Normal [facility] Comment on above: Order Comment: 411.2 Performed By: #### L 300.3900 ####[facility] [address] [place], [place], [phone]([phone] PT Coag (PPP) [Time] 28.6 s High 11.7-14.9 [facility] Comment on above: Order Comment: 411.2 Performed By: #### L 300.3900 ####[facility] [address] [place], [address] Prothrombin timeOrdered By: Kvng Crisostomo on 06-02-2024 PT Coag (PPP) [Time] 28.6 s High 11.7-14.9 [facility] [employer] normalized rat io (INR) calculationOrdered By: Kvng Crisostomo on 05-29-2024 INR Coag (Bld) [Relative time] 2.5 {INR} [facility] Prothrombin Time w/INRon INR Coag (PPP) [Relative time] 2.5 {INR} Normal [facility] Comment on above: Order Comment: 411.2 Performed By: #### L 300.3900 ####[facility] [address] [place], [address] PT Coag (PPP) [Time] 27.7 s High 11.7-14.9 [facility] Comment on above: Order Comment: 411.2 Performed By: #### L 300.3900 ####[facility] [address] [place], [address] Prothrombin timeOrdered By: Kvng Crisostomo on 05-29-2024 PT Coag (PPP) [Time] 27.7 s High 11.7-14.9 [facility] [employer] normalized rat io (INR) calculationOrdered By: Carlos Cavazos on 05-26-2024 INR Coag (Bld) [Relative time] 2.2 {INR} [facility] Prothrombin Time w/INRon INR Coag (PPP) [Relative time] 2.2 {INR} Normal [facility] Comment on above: Order Comment: 411-2 Performed By: #### L 300.3900 ####[facility] [address] [place], [address] PT Coag (PPP) [Time] 24.5 s High 11.7-14.9 [facility] Comment on above: Order Comment: 411-2 Performed By: #### L 300.3900 ####[facility] [address] [place], [address] Prothrombin timeOrdered By: Carlos Cavazos on 05-26-2024 PT Coag (PPP) [Time] 24.5 s High 11.7-14.9 [facility] [employer] normalized rat io (INR) calculationOrdered By: Kvng Crisostomo on 05-22-2024 INR Coag (Bld) [Relative time] 2.8 {INR} [facility] Prothrombin Time w/INRon INR Coag (PPP) [Relative time] 2.8 {INR} Normal [facility] Comment on above: Order Comment: 411.2 Performed By: #### L 300.3900 ####[facility] [address] [place], [address] PT Coag (PPP) [Time] 30.3 s High 11.7-14.9 [facility] Comment on above: Order Comment: 411.2 Performed By: #### L 300.3900 ####[facility] [address] [place], [address] Prothrombin timeOrdered By: Kvng Crisostomo on 05-22-2024 PT Coag (PPP) [Time] 30.3 s High 11.7-14.9 [facility] [employer] normalized rat io (INR) calculationOrdered By: Kvng Crisostomo on 05-20-2024 INR Coag (Bld) [Relative time] 4.0 {INR} High [facility] Comment on above: CRITICAL VALUE CASEY D TO MOSHPFOFT12/14/25 [facility] Diana Mattson.RESULTS READ BACK BY SAME. Prothrombin Time w/INRon INR Coag (PPP) [Relative time] 4.0 {INR} Invalid Interpretation Code [facility] Comment on above: Order Comment: 411.2 Result Comment: CRIT ICAL VALUE CALLED TO [place] [address] [facility] Diana Mattson.RESULTS READ BACK BY SAME. Performed By: #### L 300.3900 ####[facility] [address] [place], [address] PT Coag (PPP) [Time] 39.9 s High 11.7-14.9 [facility] Comment on above: Order Comment: 411.2 Performed By: #### L 300.3900 ####[facility] [address] [place], [place], [id number] Prothrombin timeOrdered By: Kvng Crisostomo on 05-20-2024 PT Coag (PPP) [Time] 39.9 s High 11.7-14.9 [facility] [employer] normalized rat io (INR) calculationOrdered By: Kvng Crisostomo on 05-19-2024 INR Coag (Bld) [Relative time] 3.4 {INR} [facility] Prothrombin Time w/INRon INR Coag (PPP) [Relative time] 3.4 {INR} Normal [facility] Comment on above: Order Comment: 411.2 Performed By: #### L 300.3900 ####[facility] [address] [place], [place], [id number] PT Coag (PPP) [Time] 35.4 s High 11.7-14.9 [facility] Comment on above: Order Comment: 411.2 Performed By: #### L 300.3900 ####[facility] [address] [place], [place], [phone] Prothrombin timeOrdered By: Kvng Crisostomo on 05-19-2024 PT Coag (PPP) [Time] 35.4 s High 11.7-14.9 [facility] [employer] normalized rat io (INR) calculationOrdered By: Kvng Crisostomo on 05-15-2024 INR Coag (Bld) [Relative time] 2.6 {INR} [facility] Prothrombin Time w/INRon INR Coag (PPP) [Relative time] 2.6 {INR} Normal [facility] Comment on above: Order Comment: 411.2 Performed By: #### L 300.3900 ####[facility] [address] [place], [address](680) PT Coag (PPP) [Time] 28.7 s High 11.7-14.9 [facility] Comment on above: Order Comment: 411.2 Performed By: #### L 300.3900 ####[facility] [address] [place], [place], [id number] Prothrombin timeOrdered By: Kvng Crisostomo on 05-15-2024 PT Coag (PPP) [Time] 28.7 s High 11.7-14.9 [facility] [employer] normalized rat io (INR) calculationOrdered By: Carlos Cavazos on 05-12-2024 INR Coag (Bld) [Relative time] 2.1 {INR} [facility] Prothrombin Time w/INRon INR Coag (PPP) [Relative time] 2.1 {INR} Normal [facility] Comment on above: Order Comment: 411-2 Performed By: #### L 300.3900 ####[facility] [address] [place], [place], [id number] PT Coag (PPP) [Time] 24.1 s High 11.7-14.9 [facility] Comment on above: Order Comment: 411-2 Performed By: #### L 300.3900 ####[facility] [address] [place], [place], [phone] Prothrombin timeOrdered By: Carlos Cavazos on 05-12-2024 PT Coag (PPP) [Time] 24.1 s High 11.7-14.9 [facility] International normalized rat io (INR) calculationOrdered By: Kvng Crisostomo on 05-09-2024 INR Coag (Bld) [Relative time] 3.4 {INR} [facility] Prothrombin Time w/INRon INR Coag (PPP) [Relative time] 3.4 {INR} Normal [facility] Comment on above: Order Comment: 411.2 Performed By: #### L 300.3900 ####[facility] [address] [place], [place], [phone] PT Coag (PPP) [Time] 35.4 s High 11.7-14.9 [facility] Comment on above: Order Comment: 411.2 Performed By: #### L 300.3900 ####[facility] [address] [place], [address] Prothrombin timeOrdered By: Kvng Crisostomo on 05-09-2024 PT Coag (PPP) [Time] 35.4 s High 11.7-14.9 [facility] [employer] normalized rat io (INR) calculationOrdered By: Kvng Crisostomo on 05-08-2024 INR Coag (Bld) [Relative time] 4.1 {INR} High [facility] Comment on above: CRITICAL VALUE CASEY D TO [facility]05/08/24 0950 Karen [place].RESULTS READ BACK BY SAME. Prothrombin Time w/INRon INR Coag (PPP) [Relative time] 4.1 {INR} Invalid Interpretation Code [facility] Comment on above: Order Comment: 411.2 Result Comment: CRIT ICAL VALUE CALLED TO [facility]05/08/24 0950 Karen [place].RESULTS READ BACK BY SAME. Performed By: #### L 300.3900 ####[facility] [address] [place], [place], [id number] PT Coag (PPP) [Time] 40.8 s High 11.7-14.9 [facility] Comment on above: Order Comment: 411.2 Performed By: #### L 300.3900 ####[facility] [address] [place], [place], [phone] Prothrombin timeOrdered By: Kvng Crisostomo on 05-08-2024 PT Coag (PPP) [Time] 40.8 s High 11.7-14.9 [facility] [employer] normalized rat io (INR) calculationOrdered By: Kvng Crisostomo on 05-05-2024 INR Coag (Bld) [Relative time] 3.2 {INR} [facility] Prothrombin Time w/INRon INR Coag (PPP) [Relative time] 3.2 {INR} Normal [facility] Comment on above: Order Comment: 411.2 Performed By: #### L 300.3900 ####[facility] [address] [place], [address] PT Coag (PPP) [Time] 32.5 s High 11.7-14.9 [facility] Comment on above: Order Comment: 411.2 Performed By: #### L 300.3900 ####[facility] [address] [place], [address] Prothrombin timeOrdered By: Kvng Crisostomo on 05-05-2024 PT Coag (PPP) [Time] 32.5 s High 11.7-14.9 [facility] normalized rat io (INR) calculationOrdered By: Kvng Crisostomo on 05-01-2024 INR Coag (Bld) [Relative time] 3.1 {INR} [facility] Prothrombin Time w/INRon INR Coag (PPP) [Relative time] 3.1 {INR} Normal [facility] Comment on above: Order Comment: 411.2 Performed By: #### L 300.3900 ####[facility] [address] [place], [address] PT Coag (PPP) [Time] 31.9 s High 11.7-14.9 [facility] Comment on above: Order Comment: 411.2 Performed By: #### L 300.3900 ####[facility] [address] [place], [address] Prothrombin timeOrdered By: Kvng Crisostomo on 05-01-2024 PT Coag (PPP) [Time] 31.9 s High 11.7-14.9 [facility] normalized rat io (INR) calculationOrdered By: Carlos Cavazos on 04-28-2024 INR Coag (Bld) [Relative time] 2.6 {INR} [facility] Prothrombin Time w/INRon INR Coag (PPP) [Relative time] 2.6 {INR} Normal [facility] Comment on above: Order Comment: 411-2 Performed By: #### L 300.3900 ####[facility] [address] [place], [address] PT Coag (PPP) [Time] 27.3 s High 11.7-14.9 [facility] Comment on above: Order Comment: 411-2 Performed By: #### L 300.3900 ####[facility] [address] [place], [address] Prothrombin timeOrdered By: Carlos Cavazos on 04-28-2024 PT Coag (PPP) [Time] 27.3 s High 11.7-14.9 [facility] [employer] normalized rat io (INR) calculationOrdered By: Kvng Crisostomo on 04-24-2024 INR Coag (Bld) [Relative time] 3.6 {INR} [facility] Prothrombin Time w/INRon INR Coag (PPP) [Relative time] 3.6 {INR} Normal [facility] Comment on above: Order Comment: 411.2 Performed By: #### L 300.3900 ####[facility] [address] [place], [address] PT Coag (PPP) [Time] 35.6 s High 11.7-14.9 [facility] Comment on above: Order Comment: 411.2 Performed By: #### L 300.3900 ####[facility] [address] [place], [address] Prothrombin timeOrdered By: Kvng Crisostomo on 04-24-2024 PT Coag (PPP) [Time] 35.6 s High 11.7-14.9 [facility] normalized rat io (INR) calculationOrdered By: Carlos Cavazos on 04-21-2024 INR Coag (Bld) [Relative time] 2.8 {INR} [facility] Prothrombin Time w/INRon INR Coag (PPP) [Relative time] 2.8 {INR} Normal [facility] Comment on above: Order Comment: 411-2 Performed By: #### L 300.3900 ####[facility] [address] [place], [place], [phone] PT Coag (PPP) [Time] 29.4 s High 11.7-14.9 [facility] Comment on above: Order Comment: 411-2 Performed By: #### L 300.3900 ####[facility] [address] [place], [address] Prothrombin timeOrdered By: Carlos Cavazos on 04-21-2024 PT Coag (PPP) [Time] 29.4 s High 11.7-14.9 [facility] normalized rat io (INR) calculationOrdered By: Kvng Crisostomo on 04-17-2024 INR Coag (Bld) [Relative time] 3.1 {INR} [facility] Prothrombin Time w/INRon INR Coag (PPP) [Relative time] 3.1 {INR} Normal [facility] Comment on above: Order Comment: 411.2 Performed By: #### L 300.3900 ####[facility] [address] [place], [place], [phone] Prothrombin timeOrdered By: Kvng Crisostomo on 04-17-2024 PT Coag (PPP) [Time] 31.3 s High 11.7-14.9 [facility] Comment on above: Order Comment: 411.2 Performed By: #### L 300.3900 ####[facility] [address] [place], [place], [phone] International normalized rat io (INR) calculationOrdered By: Kvng Crisostomo on 04-14-2024 INR Coag (Bld) [Relative time] 3.3 {INR} [facility] Prothrombin Time w/INRon INR Coag (PPP) [Relative time] 3.3 {INR} Normal [facility] Comment on above: Order Comment: 411.2 Performed By: #### L 300.3900 ####[facility] [address] [place], [address] PT Coag (PPP) [Time] 33.2 s High 11.7-14.9 [facility] Comment on above: Order Comment: 411.2 Performed By: #### L 300.3900 ####[facility] [address] [place], [address] Prothrombin timeOrdered By: Kvng Crisostomo on 04-14-2024 PT Coag (PPP) [Time] 33.2 s High 11.7-14.9 [facility] normalized rat io (INR) calculationOrdered By: Kvng Crisostomo on 04-10-2024 INR Coag (Bld) [Relative time] 2.8 {INR} [facility] Prothrombin Time w/INRon INR Coag (PPP) [Relative time] 2.8 {INR} Normal [facility] Comment on above: Order Comment: 411.2 Performed By: #### L 300.3900 ####[facility] [address] [place], [address] PT Coag (PPP) [Time] 29.2 s High 11.7-14.9 [facility] Comment on above: Order Comment: 411.2 Performed By: #### L 300.3900 ####[facility] [address] [place], [address] Prothrombin timeOrdered By: Kvng Crisostomo on 04-10-2024 PT Coag (PPP) [Time] 29.2 s High 11.7-14.9 [facility] [employer] normalized rat io (INR) calculationOrdered By: Carlos Cavazos on 04-07-2024 INR Coag (Bld) [Relative time] 2.7 {INR} [facility] Prothrombin Time w/INRon INR Coag (PPP) [Relative time] 2.7 {INR} Normal [facility] Comment on above: Order Comment: 411-2 Performed By: #### L 300.3900 ####[facility] [address] [place], [address] PT Coag (PPP) [Time] 28.1 s High 11.7-14.9 [facility] Comment on above: Order Comment: 411-2 Performed By: #### L 300.3900 ####[facility] [address] [place], [address] Prothrombin timeOrdered By: Carlos Cavazos on 04-07-2024 PT Coag (PPP) [Time] 28.1 s High 11.7-14.9 [facility] [employer] normalized rat io (INR) calculationOrdered By: Kvng Crisostomo on 04-04-2024 INR Coag (Bld) [Relative time] 2.8 {INR} [facility] Prothrombin Time w/INRon INR Coag (PPP) [Relative time] 2.8 {INR} Normal [facility] Comment on above: Order Comment: 411.2 Performed By: #### L 300.3900 ####[facility] [address] [place], [address] PT Coag (PPP) [Time] 28.9 s High 11.7-14.9 [facility] Comment on above: Order Comment: 411.2 Performed By: #### L 300.3900 ####[facility] [address] [place], [address] Prothrombin timeOrdered By: Kvng Crisostomo on 04-04-2024 PT Coag (PPP) [Time] 28.9 s High 11.7-14.9 [facility] normalized rat io (INR) calculationOrdered By: Carlos Cavazos on 03-31-2024 INR Coag (Bld) [Relative time] 2.6 {INR} [facility] Prothrombin Time w/INRon INR Coag (PPP) [Relative time] 2.6 {INR} Normal [facility] Comment on above: Order Comment: 411-2 Performed By: #### L 300.3900 ####[facility] [address] [place], [address] PT Coag (PPP) [Time] 27.3 s High 11.7-14.9 [facility] Comment on above: Order Comment: 411-2 Performed By: #### L 300.3900 ####[facility] [address] [place], [address] Prothrombin timeOrdered By: Carlos Cavazos on 03-31-2024 PT Coag (PPP) [Time] 27.3 s High 11.7-14.9 [facility] normalized rat io (INR) calculationOrdered By: [employer] on 03-27-2024 INR Coag (Bld) [Relative time] 2.2 {INR} [facility] Prothrombin Time w/INRon INR Coag (PPP) [Relative time] 2.2 {INR} Normal [facility] Comment on above: Order Comment: 411.2 Performed By: #### L 300.3900 ####[facility] [address] [place], [address] PT Coag (PPP) [Time] 24.3 s High 11.7-14.9 [facility] Comment on above: Order Comment: 411.2 Performed By: #### L 300.3900 ####[facility] [address] [place], [address] Prothrombin timeOrdered By: [employer] on 03-27-2024 PT Coag (PPP) [Time] 24.3 s High 11.7-14.9 [facility] normalized rat io (INR) calculationOrdered By: Kvng Crisostomo on 03-24-2024 INR Coag (Bld) [Relative time] 1.8 {INR} [facility] Prothrombin Time w/INRon INR Coag (PPP) [Relative time] 1.8 {INR} Normal [facility] Comment on above: Order Comment: 411.2 Performed By: #### L 300.3900 ####[facility] [address] [place], [address] PT Coag (PPP) [Time] 20.7 s High 11.7-14.9 [facility] Comment on above: Order Comment: 411.2 Performed By: #### L 300.3900 ####[facility] [address] [place], [address] Prothrombin timeOrdered By: Kvng Crisostomo on 03-24-2024 PT Coag (PPP) [Time] 20.7 s High 11.7-14.9 [facility] normalized rat io (INR) calculationOrdered By: [employer] on 03-20-2024 INR Coag (Bld) [Relative time] 1.8 {INR} [facility] Prothrombin Time w/INRon INR Coag (PPP) [Relative time] 1.8 {INR} Normal [facility] Comment on above: Order Comment: 411.2 Performed By: #### L 300.3900 ####[facility] [address] [place], [address] PT Coag (PPP) [Time] 20.9 s High 11.7-14.9 [facility] Comment on above: Order Comment: 411.2 Performed By: #### L 300.3900 ####[facility] [address] [place], [address] Prothrombin timeOrdered By: [employer] on 03-20-2024 PT Coag (PPP) [Time] 20.9 s High 11.7-14.9 [facility] normalized rat io (INR) calculationOrdered By: Babbaljeet Crisostomo on 03-19-2024 INR Coag (Bld) [Relative time] 2.4 {INR} [facility] Prothrombin Time w/INRon INR Coag (PPP) [Relative time] 2.4 {INR} Normal [facility] Comment on above: Order Comment: 411.2 Performed By: #### L 300.3900 ####[facility] [address] [place], [address] PT Coag (PPP) [Time] 26.4 s High 11.7-14.9 [facility] Comment on above: Order Comment: 411.2 Performed By: #### L 300.3900 ####[facility] [address] [place], [address] Prothrombin timeOrdered By: Kvng Crisostomo on 03-19-2024 PT Coag (PPP) [Time] 26.4 s High 11.7-14.9 [facility] normalized rat io (INR) calculationOrdered By: [employer] on 03-18-2024 INR Coag (Bld) [Relative time] 3.2 {INR} [facility] Prothrombin Time w/INRon INR Coag (PPP) [Relative time] 3.2 {INR} Normal [facility] Comment on above: Order Comment: 411.2 Performed By: #### L 300.3900 ####[facility] [address] [place], [address] PT Coag (PPP) [Time] 32.3 s High 11.7-14.9 [facility] Comment on above: Order Comment: 411.2 Performed By: #### L 300.3900 ####[facility] [address] [place], [address] Prothrombin timeOrdered By: [employer] on 03-18-2024 PT Coag (PPP) [Time] 32.3 s High 11.7-14.9 [facility] normalized rat io (INR) calculationOrdered By: [employer] on 03-17-2024 INR Coag (Bld) [Relative time] 3.6 {INR} [facility] Prothrombin Time w/INRon INR Coag (PPP) [Relative time] 3.6 {INR} Normal [facility] Comment on above: Order Comment: 411.2 Performed By: #### L 300.3900 ####[facility] [address] [place], [address] PT Coag (PPP) [Time] 35.7 s High 11.7-14.9 [facility] Comment on above: Order Comment: 411.2 Performed By: #### L 300.3900 ####[facility] [address] [place], [address] Prothrombin timeOrdered By: [employer] on 03-17-2024 PT Coag (PPP) [Time] 35.7 s High 11.7-14.9 [facility] normalized rat io (INR) calculationOrdered By: Carlos Cavazos on 03-14-2024 INR Coag (Bld) [Relative time] 3.5 {INR} [facility] Prothrombin Time w/INRon INR Coag (PPP) [Relative time] 3.5 {INR} Normal [facility] Comment on above: Order Comment: 411-2 Performed By: #### L 300.3900 ####[facility] [address] [place], [address] PT Coag (PPP) [Time] 35.0 s High 11.7-14.9 [facility] Comment on above: Order Comment: 411-2 Performed By: #### L 300.3900 ####[facility] [address] [place], [address] Prothrombin timeOrdered By: Carlos Cavazos on 03-14-2024 PT Coag (PPP) [Time] 35.0 s High 11.7-14.9 [facility] normalized rat io (INR) calculationOrdered By: [employer] on 03-13-2024 INR Coag (Bld) [Relative time] 3.2 {INR} [facility] Prothrombin Time w/INRon 11- 07-2024 INR Coag (PPP) [Relative time] 3.2 {INR} Normal [facility] Comment on above: Performed By: #### L 300.3900 ####[facility] [address] [place], [address] PT Coag (PPP) [Time] 32.2 s High 11.7-14.9 [facility] Comment on above: Performed By: #### L 300.3900 ####[facility] [address] [place], [address] Prothrombin timeOrdered By: [employer] on 03-13-2024 PT Coag (PPP) [Time] 32.2 s High 11.7-14.9 [facility] Prothrombin Time w/INRon INR Coag (PPP) [Relative time] 2.6 {INR} Normal [facility] Comment on above: Order Comment: 411.2 Performed By: #### L 300.3900 ####[facility] [address] [place], [address] PT Coag (PPP) [Time] 27.7 s High 11.7-14.9 [facility] Comment on above: Order Comment: 411.2 Performed By: #### L 300.3900 ####[facility] [address] [place], [address] Prothrombin Time w/INRon INR Coag (PPP) [Relative time] 3.1 {INR} Normal [facility] Comment on above: Order Comment: 411.2 Performed By: #### L 300.3900 ####[facility] [address] [place], [address] PT Coag (PPP) [Time] 31.4 s High 11.7-14.9 [facility] Comment on above: Order Comment: 411.2 Performed By: #### L 300.3900 ####[facility] [address] [place], [address] Prothrombin Time w/INRon INR Coag (PPP) [Relative time] 3.1 {INR} Normal [facility] Comment on above: Order Comment: 411.2 Performed By: #### L 300.3900 ####[facility] [address] [place], [address] PT Coag (PPP) [Time] 31.8 s High 11.7-14.9 [facility] Comment on above: Order Comment: 411.2 Performed By: #### L 300.3900 ####[facility] [address] [place], [address] Prothrombin Time w/INRon INR Coag (PPP) [Relative time] 3.0 {INR} Normal [facility] Comment on above: Order Comment: 411.2 Performed By: #### L 300.3900 ####[facility] [address] [place], [address] PT Coag (PPP) [Time] 30.6 s High 11.7-14.9 [facility] Comment on above: Order Comment: 411.2 Performed By: #### L 300.3900 ####[facility] [address] [place], [address] Prothrombin Time w/INRon INR Coag (PPP) [Relative time] 2.6 {INR} Normal [facility] Comment on above: Order Comment: 411-2 Performed By: #### L 300.3900 ####[facility] [address] [place], [address] PT Coag (PPP) [Time] 27.5 s High 11.7-14.9 [facility] Comment on above: Order Comment: 411-2 Performed By: #### L 300.3900 ####[facility] [address] [place], [address] Prothrombin Time w/INRon - INR Coag (PPP) [Relative time] 2.3 {INR} Normal [facility] Comment on above: Order Comment: 411.2 Performed By: #### L 300.3900 ####[facility] [address] [place], [address] PT Coag (PPP) [Time] 25.5 s High 11.7-14.9 [facility] Comment on above: Order Comment: 411.2 Performed By: #### L 300.3900 ####[facility] [address] [place], [address] Prothrombin Time w/INRon - INR Coag (PPP) [Relative time] 1.9 {INR} Normal [facility] Comment on above: Order Comment: 411.2 Performed By: #### L 300.3900 ####[facility] [address] [place], [address] PT Coag (PPP) [Time] 21.3 s High 11.7-14.9 [facility] Comment on above: Order Comment: 411.2 Performed By: #### L 300.3900 ####[facility] [address] [place], [address] Prothrombin Time w/INRon INR Coag (PPP) [Relative time] 2.5 {INR} Normal [facility] Comment on above: Order Comment: 411.2 Performed By: #### L 300.3900 ####[facility] [address] [place], [address] PT Coag (PPP) [Time] 26.5 s High 11.7-14.9 [facility] Comment on above: Order Comment: 411.2 Performed By: #### L 300.3900 ####[facility] [address] [place], [address] Prothrombin Time w/INRon INR Coag (PPP) [Relative time] 2.9 {INR} Normal [facility] Comment on above: Order Comment: 411.2 Performed By: #### L 300.3900 ####[facility] [address] [place], [address] PT Coag (PPP) [Time] 30.2 s High 11.7-14.9 [facility] Comment on above: Order Comment: 411.2 Performed By: #### L 300.3900 ####[facility] [address] [place], [address] Prothrombin Time w/INRon INR Coag (PPP) [Relative time] 3.6 {INR} Normal [facility] Comment on above: Order Comment: 411.2 Performed By: #### L 300.3900 ####[facility] [address] [place], [address] PT Coag (PPP) [Time] 35.3 s High 11.7-14.9 [facility] Comment on above: Order Comment: 411.2 Performed By: #### L 300.3900 ####[facility] [address] [place], [address] Prothrombin Time w/INRon INR Coag (PPP) [Relative time] 2.8 {INR} Normal [facility] Comment on above: Order Comment: 411-2 Performed By: #### L 300.3900 ####[facility] [address] [place], [address] PT Coag (PPP) [Time] 29.4 s High 11.7-14.9 [facility] Comment on above: Order Comment: 411-2 Performed By: #### L 300.3900 ####[facility] [address] [place], [address] Prothrombin Time w/INRon INR Coag (PPP) [Relative time] 2.9 {INR} Normal [facility] Comment on above: Order Comment: 411.2 Performed By: #### L 300.3900 ####[facility] [address] [place], [address] PT Coag (PPP) [Time] 29.9 s High 11.7-14.9 [facility] Comment on above: Order Comment: 411.2 Performed By: #### L 300.3900 ####[facility] [id number] [place], [address] Prothrombin Time w/INRon INR Coag (PPP) [Relative time] 2.2 {INR} Normal [facility] Comment on above: Order Comment: 411.2 Performed By: #### L 300.3900 ####[facility] [address] [place], [address] PT Coag (PPP) [Time] 24.1 s High 11.7-14.9 [facility] Comment on above: Order Comment: 411.2 Performed By: #### L 300.3900 ####[facility] [address] [place], [address] Prothrombin Time w/INRon INR Coag (PPP) [Relative time] 2.1 {INR} Normal [facility] Comment on above: Order Comment: 411-2 Performed By: #### L 300.3900 ####[facility] [address] [place], [address] PT Coag (PPP) [Time] 23.0 s High 11.7-14.9 [facility] Comment on above: Order Comment: 411-2 Performed By: #### L 300.3900 ####[facility] [address] [place], [address] Prothrombin Time w/INRon INR Coag (PPP) [Relative time] 2.8 {INR} Normal [facility] Comment on above: Performed By: #### L 300.3900 ####[facility] [id number] [place], [address] PT Coag (PPP) [Time] 28.9 s High 11.7-14.9 [facility] Comment on above: Performed By: #### L 300.3900 ####[facility] [address] [place], [address] Protime w/INR Fingerstickon 01-29-2024 INR Coag (PPP) [Relative time] 3.2 {INR} Normal [facility] Comment on above: Result Comment: Crit ical Value > 4.0 Performed By: #### L 9200.0000 ####[facility] [address] [place], [address] Protime Coagsen 31.8 SEC High 11.7-14.9 [facility] Comment on above: Performed By: #### L 9200.0000 ####[facility] [address] [place], [place], [address] Office Visiton 09-13-2023 Follow-up visit [id number] Tamie Sifuentes cheng Gonzalez 1950 M Pasha Provider Department Center 09/13/2023 [id number] BUCK [facility] U[facility] None Family History Problem Relation Age of Onset Heart disease Father Cancer Mother Family Status - Relation Status Age at Father Mother Level of Service:[address] [place] OFFICE/OUTPATIENT ESTABLISHED MOD MDM 30 MIN Reason for Visit and Comments: left flank pain [Other] - 8/10 pain when touched Normal [facility] Progress Noteon 09-13-2023 Progress Note Walt [...] Hydrocephalus, adult (CMS/HCC) (HCC) Kidney stone 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 Normal [facility] CT ABDOMEN PELVIS WO IV CONT [...] a kidney stone; pt has a hernia [facility] 36on 08-29-2023 36 Lm on daughters vm t o advise them to call the number for the counter manager to get clarification, and to call back with further questions [address] 08-27-2023 36 Yes, they will need to call the number given to them. [facility] 36 Please advise [address] 08-21-2023 36 Name of caller: Zion holt Contact phone number: [phone] Relationship to Patient: patient Provider: MD Quinn Practice: [facility] Urology Chief Complaint/Reason for Call: Shanthi [...] to reach out to call Maury Cedeño Card Grinder at [facility] [phone] to get clarifications. TEA did reach back out to [facility] and advised and provider Maury's #. Please advise Best time of day caller can be reached: Any Patient advised that office/PCP has 24-48 business hours to return their call: N/A Normal [facility] Laboratory - CoagulationOrde red By: Carlos Cavazos on 08-21-2023 INR Coag (Bld) [Relative time] 2.7 {INR} [facility] PT Coag (PPP) [Time] 28.9 s 11.7-14.9 [facility] Office Visiton 08-13-2023 Follow-up visit [id number] Tamie Sifuentes cheng Gonzalez 1950 M [place] Provider Department Center 08/13/2023 [id number] BUCK [facility] None Family History Problem Relation Age of Onset Heart disease Father Cancer Mother Family Status - Relation Status Age at Father Mother Level of Service:03175 [place] OFFICE/OUTPATIENT NEW MODERATE MDM 45 MINUTES Reason for Visit and Comments: New Patient [542] - Bilateral flank pain, hx of kidney stones Nephrolithiasis [016344] Normal [facility] Progress Noteon 08-13-2023 Progress Note Walt [...] Hydrocephalus, adult (CMS/HCC) (HCC) Kidney stone Neuropathy SMALL BATTERY PLATE ASSEMBLER (ventriculoperitoneal) shunt status Past Surgical History: Past [...] CT ab (more content not included)... Normal [facility] No Panel InformationOrdered By: Carlos Cavazos on 08-03-2023 Levetiracetam (Keppra) Level 32.4 ug/mL 10.0-40.0 [facility] Comment on above: Performed at: [address] [id number] Director: Alpesh Vázquez MD, Phone: [phone] Basophil percentageOrdered B y: Carlos Cavazos on 07-20-2023 Chloride [Moles/Vol] 106 mmol/L 98-107 os [facility] Glucose [Mass/Vol] 98 mg/dL 74-106 [facility] Hemoglobin (Bld) [Mass/Vol] 12.5 g/dL 13.0-16.5 [facility] Potassium [Moles/Vol] 4.3 mmol/L 3.5-5.1 [facility] Sodium [Moles/Vol] 135 mmol/L 136-145 [facility] WBC (Bld) [#/Vol] 13.0 10*3/uL 4.4-11.0 [facility] Determination of erythrocyte mean corpuscular volume (MCV)Ordered By: Carlos Cavazos on 07-20-2023 MCV (RBC) [Entitic vol] 86.2 fL 80-94 [facility] Erythrocyte distribution wid th ratioOrdered By: Carlos Cavazos on 07-20-2023 Erythrocyte distribution width (RBC) [Ratio] 15.3 % 11.6-14.6 [facility] Erythrocyte distribution wid th standard deviationOrdered By: Carlos Cavazos on 07-20-2023 Erythrocyte distribution width (RBC) [Entitic vol] 48.1 fL 35.1-43.9 [facility] Hematocrit Auto (Bld) [Volum e fraction]Ordered By: Carlos Cavazos on 07-20-2023 Hematocrit (Bld) [Volume fraction] 39.9 % 40-54 [facility] Laboratory - Chemistry and C hemistry - challengeOrdered By: Carlos Cavazos on 07-20-2023 CO2 [Moles/Vol] 24.0 mmol/L 21.0-32.0 [facility] Urea nitrogen/Creatinine [Mass ratio] 24.6 mg/mg 10-20 [facility] Laboratory - Hematology and Cell countsOrdered By: Carlos Cavazos on 07-20-2023 MCH (RBC) [Entitic mass] 27.0 pg 27.0-32.0 [facility] MCHC (RBC) [Mass/Vol] 31.3 g/dL 32-36 [facility] Platelet mean volume (Bld) [Entitic vol] 10.7 fL 6.2-12.0 [facility] Platelets (Bld) [#/Vol] 260 10*3/uL 150-450 [facility] No Panel InformationOrdered By: Carlos Cavazos on 07-20-2023 Estimated GFR (MDRD) Amer 114 mL/min >60 [facility] Comment on above: GFR Calc Estimated GFR (MDRD) Non-Af Amer 94 mL/min >60 [facility] Comment on above: Non- GFR Calc RBC Auto (Bld) [#/Vol]Ordere d By: Carlos Cavazos on 07-20-2023 RBC (Bld) [#/Vol] 4.63 10*6/uL 4.6-6.2 [facility] Serum or plasma calcium oral urement (mass/volume)Ordered By: Carlos Cavazos on 07-20-2023 Calcium [Mass/Vol] 8.6 mg/dL 8.5-10.1 [facility] Serum or plasma creatinine m easurement (mass/volume)Ordered By: Carlos Cavazos on 07-20-2023 Creatinine [Mass/Vol] 0.85 mg/dL 0.70-1.30 [facility] Comment on above: The validity of the calculated GFR & GFRAA in patients over 70 years has not been determined. Clinical correlation is essential. Serum or plasma urea nitroge n measurement (mass/volume)Ordered By: Carlos Cavazos on 07-20-2023 Urea nitrogen [Mass/Vol] 21 mg/dL 7-18 [facility] Thin prep Papanicolaou smear with manual screeningOrdered By: Carlos Cavazos on 07-20-2023 Thin prep Papanicolaou smear with manual screening 5 5-15 [facility] Basophil percentageOrdered B y: Carlos Cavazos on 07-18-2023 Chloride [Moles/Vol] 102 mmol/L 98-107 [facility] Glucose [Mass/Vol] 96 mg/dL 74-106 [facility] Hemoglobin (Bld) [Mass/Vol] 12.3 g/dL 13.0-16.5 [facility] Potassium [Moles/Vol] 4.2 mmol/L 3.5-5.1 [facility] Sodium [Moles/Vol] 136 mmol/L 136-145 [facility] WBC (Bld) [#/Vol] 14.7 10*3/uL 4.4-11.0 [facility] Determination of erythrocyte mean corpuscular volume (MCV)Ordered By: Carlos Cavazos on 07-18-2023 MCV (RBC) [Entitic vol] 85.4 fL 80-94 [facility] Erythrocyte distribution wid th ratioOrdered By: Carlos Cavazos on 07-18-2023 Erythrocyte distribution width (RBC) [Ratio] 15.1 % 11.6-14.6 [facility] Erythrocyte distribution wid th standard deviationOrdered By: Carlos Cavazos on 07-18-2023 Erythrocyte distribution width (RBC) [Entitic vol] 47.3 fL 35.1-43.9 [facility] Hematocrit Auto (Bld) [Volum e fraction]Ordered By: Carlos Cavazos on 07-18-2023 Hematocrit (Bld) [Volume fraction] 39.3 % 40-54 [facility] Laboratory - Chemistry and C hemistry - challengeOrdered By: Carlos Cavazos on 07-18-2023 CO2 [Moles/Vol] 27.0 mmol/L 21.0-32.0 [facility] Urea nitrogen/Creatinine [Mass ratio] 24.4 mg/mg 10-20 [facility] Laboratory - Hematology and Cell countsOrdered By: Carlos Cavazos on 07-18-2023 MCH (RBC) [Entitic mass] 26.7 pg 27.0-32.0 [facility] MCHC (RBC) [Mass/Vol] 31.3 g/dL 32-36 [facility] Platelet mean volume (Bld) [Entitic vol] 10.3 fL 6.2-12.0 [facility] Platelets (Bld) [#/Vol] 288 10*3/uL 150-450 [facility] No Panel InformationOrdered By: Carlos Cavazos on 07-18-2023 Estimated GFR (MDRD) Amer 113 mL/min >60 [facility] Comment on above: GFR Calc Estimated GFR (MDRD) Non-Af Amer 93 mL/min >60 [facility] Comment on above: Non- GFR Calc RBC Auto (Bld) [#/Vol]Ordere d By: Carlos Cavazos on 07-18-2023 RBC (Bld) [#/Vol] 4.60 10*6/uL 4.6-6.2 [facility] Serum or plasma calcium oral urement (mass/volume)Ordered By: Carlos Cavazos on 07-18-2023 Calcium [Mass/Vol] 8.9 mg/dL 8.5-10.1 [facility] Serum or plasma creatinine m easurement (mass/volume)Ordered By: Carlos Cavazos on 07-18-2023 Creatinine [Mass/Vol] 0.86 mg/dL 0.70-1.30 [facility] Comment on above: The validity of the calculated GFR & GFRAA in patients over 70 years has not been determined. Clinical correlation is essential. Serum or plasma urea nitroge n measurement (mass/volume)Ordered By: Carlos Cavazos on 07-18-2023 Urea nitrogen [Mass/Vol] 21 mg/dL 7-18 [facility] Thin prep Papanicolaou smear with manual screeningOrdered By: Carlos Cavazos on 07-18-2023 Thin prep Papanicolaou smear with manual screening 7 5-15 [facility] Basophil percentageOrdered B y: Carlos Cavazos on 07-17-2023 Basophil percentage 0-5 SEEN /hpf 0-5 [facility] Bilirubin Test strip Ql (U)O rdered By: Carlos Cavazos on 07-17-2023 Bilirubin Ql (U) Negative Negative [facility] Calcium oxalate crystals det ection in urine sediment by light microscopyOrdered By: Carlos Cavazos on 07-17-2023 Calcium oxalate crystals LM Ql (Urine sed) 1+ /hpf [facility] Culture, urineOrdered By: Sharif Crouch on 07-17-2023 Bacteria identified Cx Nom (U) Positive [facility] Ketones Test strip Ql (U)Ord ered By: Carlos Cavazos on 07-17-2023 Ketones Ql (U) Negative Negative [facility] Mucus LM Ql (Urine sed)Order ed By: Carlos Cavazos on 07-17-2023 Mucus Ql (Urine sed) 0 SEEN /hpf [facility] Nitrite Test strip Ql (U)Ord ered By: Carlos Cavazos on 07-17-2023 Nitrite Ql (U) Negative Negative [facility] No Panel InformationOrdered By: Carlos Cavazos on 07-17-2023 Urine RBC 0 SEEN /hpf 0-5 [facility] Protein Test strip Ql (U)Ord ered By: Carlos Cavazos on 07-17-2023 Protein Ql (U) Negative Negative [facility] Squamous epithelial cells de tection in urine sediment by light microscopyOrdered By: Carlos Cavazos on 07-17-2023 Epithelial cells.squamous LM Ql (Urine sed) 0-5 SEEN /hpf 0-5 [facility] Urine blood detectionOrdered By: Carlos Cavazos on 07-17-2023 RBC Ql (U) Negative Negative [facility] Urine clarityOrdered By: Ted Cavazos on 07-17-2023 Clarity (U) Clear Clear [facility] Urine color determinationOrd ered By: Carlos Cavazos on 07-17-2023 Color (U) Yellow Yellow [facility] Urine glucose detectionOrder ed By: Carlos Cavazos on 07-17-2023 Glucose Ql (U) Normal mg/dl Normal [facility] Urine leukocyte esterase det ection by dipstickOrdered By: Carlos Cavazos on 07-17-2023 Leukocyte esterase Test strip Ql (U) 25 /ul Negative [facility] Urine pHOrdered By: Carlos flores on 07-17-2023 pH (U) 6.0 [pH] 5.0 - 8.0 [facility] Urine sediment bacteria coun t by microscopy (number/high power field)Ordered By: Carlos Cavazos on 07-17-2023 Bacteria LM.HPF (Urine sed) [#/Area] 0 /[HPF] None Seen [facility] Urine specific gravity measu rementOrdered By: Carlos Cavazos on 07-17-2023 Specific gravity (U) [Rel density] 1.020 1.002-1.030 [facility] Urine urobilinogen measureme ntOrdered By: Carlos Cavazos on 07-17-2023 Urobilinogen Ql (U) Normal mg/dl Normal [facility] Absolute lymphocyte countOrd ered By: Carlos Cavazos on 07-16-2023 Lymphocytes Auto (Unsp spec) [#/Vol] 6.02 10*3/uL 0.83-4.51 [facility] Automated lymphocyte count a s percentage of total leukocytesOrdered By: Carlos Cavazos on 07-16-2023 Lymphocytes/100 WBC Auto (Unsp spec) 49.1 % 19-41 [facility] Basophil percentageOrdered B y: Carlos Cavazos on 07-16-2023 Basophils/100 WBC (Bld) 0.6 % 0-1 [facility] Chloride [Moles/Vol] 105 mmol/L 98-107 [facility] Eosinophils/100 WBC (Bld) 2.0 % 0-5 [facility] Glucose [Mass/Vol] 93 mg/dL 74-106 [facility] Hemoglobin (Bld) [Mass/Vol] 12.1 g/dL 13.0-16.5 [facility] Monocytes/100 WBC (Bld) 5.3 % 0-10 [facility] Neutrophils (Bld) [#/Vol] 5.2 10*3/uL 2.0-7.7 [facility] Neutrophils/100 WBC (Bld) 42.8 % 47-70 [facility] Potassium [Moles/Vol] 4.3 mmol/L 3.5-5.1 [facility] Sodium [Moles/Vol] 138 mmol/L 136-145 [facility] WBC (Bld) [#/Vol] 12.3 10*3/uL 4.4-11.0 [facility] Blood manual differential co mment interpretation (narrative result)Ordered By: Carlos Cavazos on 07-16-2023 Manual differential comment Shemar (Bld) [Interp] SCANNED [facility] Determination of erythrocyte mean corpuscular volume (MCV)Ordered By: Carlos Cavazos on 07-16-2023 MCV (RBC) [Entitic vol] 86.8 fL 80-94 [facility] Erythrocyte distribution wid th ratioOrdered By: Carlos Cavazos on 07-16-2023 Erythrocyte distribution width (RBC) [Ratio] 15.3 % 11.6-14.6 [facility] Erythrocyte distribution wid th standard deviationOrdered By: Carlos Cavazos on 07-16-2023 Erythrocyte distribution width (RBC) [Entitic vol] 48.9 fL 35.1-43.9 [facility] Hematocrit Auto (Bld) [Volum e fraction]Ordered By: Carlos Cavazos on 07-16-2023 Hematocrit (Bld) [Volume fraction] 38.7 % 40-54 [facility] Immature granulocytes/100 WB C Auto (Bld)Ordered By: Carlos Cavazos on 07-16-2023 Immature granulocytes/100 WBC (Bld) 0.200 % 0.0-0.9 [facility] Comment on above: IG% - Immature Granu locytes (promyelocytes, myelocytes and metamyelocytes) > 1% indicates that a LEFT SHIFT is Present. Laboratory - Chemistry and C hemistry - challengeOrdered By: Carlos Cavazos on 07-16-2023 CO2 [Moles/Vol] 25.0 mmol/L 21.0-32.0 [facility] Urea nitrogen/Creatinine [Mass ratio] 21.0 mg/mg 10-20 [facility] Laboratory - CoagulationOrde red By: Carlos Cavazos on 07-16-2023 INR Coag (Bld) [Relative time] 2.4 {INR} [facility] PT Coag (PPP) [Time] 25.7 s 11.7-14.9 [facility] Laboratory - Hematology and Cell countsOrdered By: Carlos Cavazos on 07-16-2023 MCH (RBC) [Entitic mass] 27.1 pg 27.0-32.0 [facility] MCHC (RBC) [Mass/Vol] 31.3 g/dL 32-36 [facility] Nucleated RBC/100 WBC (Bld) [Ratio] 0 % 0-5 [facility] Platelet mean volume (Bld) [Entitic vol] 10.5 fL 6.2-12.0 [facility] Platelets (Bld) [#/Vol] 289 10*3/uL 150-450 [facility] No Panel InformationOrdered By: Carlos Cavazos on 07-16-2023 Estimated GFR (MDRD) Amer 106 mL/min >60 [facility] Comment on above: GFR Calc Estimated GFR (MDRD) Non-Af Amer 88 mL/min >60 [facility] Comment on above: Non- GFR Calc Reactive Lymphocytes 1+ [facility] RBC Auto (Bld) [#/Vol]Ordere d By: Carlos Cavazos on 07-16-2023 RBC (Bld) [#/Vol] 4.46 10*6/uL 4.6-6.2 [facility] Serum or plasma calcium oral urement (mass/volume)Ordered By: Carlos Cavazos on 07-16-2023 Calcium [Mass/Vol] 9.0 mg/dL 8.5-10.1 [facility] Serum or plasma creatinine m easurement (mass/volume)Ordered By: Carlos Cavazos on 07-16-2023 Creatinine [Mass/Vol] 0.90 mg/dL 0.70-1.30 [facility] Comment on above: The validity of the calculated GFR & GFRAA in patients over 70 years has not been determined. Clinical correlation is essential. Serum or plasma urea nitroge n measurement (mass/volume)Ordered By: Carlos Cavazos on 07-16-2023 Urea nitrogen [Mass/Vol] 19 mg/dL 7-18 [facility] Thin prep Papanicolaou smear with manual screeningOrdered By: Carlos Cavazos on 07-16-2023 Thin prep Papanicolaou smear with manual screening 8 5-15 [facility] Absolute lymphocyte countOrd ered By: Carlos Cavazos on 07-13-2023 Lymphocytes Auto (Unsp spec) [#/Vol] 5.44 10*3/uL 0.83-4.51 [facility] Automated lymphocyte count a s percentage of total leukocytesOrdered By: Carlos Cavazos on 07-13-2023 Lymphocytes/100 WBC Auto (Unsp spec) 47.3 % 19-41 [facility] Basophil percentageOrdered B y: Carlos Cavazos on 07-13-2023 Basophils/100 WBC (Bld) 0.4 % 0-1 [facility] Chloride [Moles/Vol] 107 mmol/L 98-107 [facility] Eosinophils/100 WBC (Bld) 1.7 % 0-5 [facility] Glucose [Mass/Vol] 96 mg/dL 74-106 [facility] Hemoglobin (Bld) [Mass/Vol] 13.5 g/dL 13.0-16.5 [facility] Monocytes/100 WBC (Bld) 4.3 % 0-10 [facility] Neutrophils (Bld) [#/Vol] 5.3 10*3/uL 2.0-7.7 [facility] Neutrophils/100 WBC (Bld) 46.0 % 47-70 [facility] Potassium [Moles/Vol] 4.0 mmol/L 3.5-5.1 [facility] Sodium [Moles/Vol] 139 mmol/L 136-145 [facility] WBC (Bld) [#/Vol] 11.5 10*3/uL 4.4-11.0 [facility] Determination of erythrocyte mean corpuscular volume (MCV)Ordered By: Carlos Cavazos on 07-13-2023 MCV (RBC) [Entitic vol] 86.1 fL 80-94 [facility] Erythrocyte distribution wid th ratioOrdered By: Carlos Cavazos on 07-13-2023 Erythrocyte distribution width (RBC) [Ratio] 15.2 % 11.6-14.6 [facility] Erythrocyte distribution wid th standard deviationOrdered By: Carlos Cavazos on 07-13-2023 Erythrocyte distribution width (RBC) [Entitic vol] 48.0 fL 35.1-43.9 [facility] Hematocrit Auto (Bld) [Volum e fraction]Ordered By: Carlos Cavazos on 07-13-2023 Hematocrit (Bld) [Volume fraction] 42.2 % 40-54 [facility] Immature granulocytes/100 WB C Auto (Bld)Ordered By: Carlos Cavazos on 07-13-2023 Immature granulocytes/100 WBC (Bld) 0.300 % 0.0-0.9 [facility] Comment on above: IG% - Immature Granu locytes (promyelocytes, myelocytes and metamyelocytes) > 1% indicates that a LEFT SHIFT is Present. Laboratory - Chemistry and C hemistry - challengeOrdered By: Carlos Cavazos on 07-13-2023 CO2 [Moles/Vol] 26.0 mmol/L 21.0-32.0 [facility] Urea nitrogen/Creatinine [Mass ratio] 21.8 mg/mg 10-20 [facility] Laboratory - Hematology and Cell countsOrdered By: Carlos Cavazos on 07-13-2023 MCH (RBC) [Entitic mass] 27.6 pg 27.0-32.0 [facility] MCHC (RBC) [Mass/Vol] 32.0 g/dL 32-36 [facility] Nucleated RBC/100 WBC (Bld) [Ratio] 0 % 0-5 [facility] Platelet mean volume (Bld) [Entitic vol] 10.1 fL 6.2-12.0 [facility] Platelets (Bld) [#/Vol] 279 10*3/uL 150-450 [facility] No Panel InformationOrdered By: Carlos Cavazos on 07-13-2023 Estimated GFR (MDRD) Amer 118 mL/min >60 [facility] Comment on above: GFR Calc Estimated GFR (MDRD) Non-Af Amer 98 mL/min >60 [facility] Comment on above: Non- GFR Calc Levetiracetam (Keppra) Level 25.5 ug/mL 10.0-40.0 [facility] Comment on above: Performed at: [facility] [employer] [address] [id number] Director: Alpesh Vázquez MD, Phone: [phone] RBC Auto (Bld) [#/Vol]Ordere d By: Carlos Cavazos on 07-13-2023 RBC (Bld) [#/Vol] 4.90 10*6/uL 4.6-6.2 [facility] Serum or plasma calcium oral urement (mass/volume)Ordered By: Carlos Cavazos on 07-13-2023 Calcium [Mass/Vol] 9.1 mg/dL 8.5-10.1 [facility] [place] Serum or plasma creatinine m easurement (mass/volume)Ordered By: Carlos Cavazos on 07-13-2023 Creatinine [Mass/Vol] 0.82 mg/dL 0.70-1.30 [facility] Comment on above: The validity of the calculated GFR & GFRAA in patients over 70 years has not been determined. Clinical correlation is essential. Serum or plasma urea nitroge n measurement (mass/volume)Ordered By: Carlos Cavazos on 07-13-2023 Urea nitrogen [Mass/Vol] 18 mg/dL 7-18 [facility] Thin prep Papanicolaou smear with manual screeningOrdered By: Carlos Cavazos on 07-13-2023 Thin prep Papanicolaou smear with manual screening 6 5-15 [facility] No Panel InformationOrdered By: Carlos Cavazos on 07-12-2023 Valproic Acid (Depakene) Level < 3 ug/mL 50-100 [facility] Laboratory - CoagulationOrde red By: Carlos Cavazos on 07-05-2023 INR Coag (Bld) [Relative time] 2.4 {INR} [facility] PT Coag (PPP) [Time] 26.3 s 11.7-14.9 [facility] Laboratory - CoagulationOrde red By: Carlos Cavazos on 07-02-2023 INR Coag (Bld) [Relative time] 1.5 {INR} [facility] PT Coag (PPP) [Time] 18.5 s 11.7-14.9 [facility] Laboratory - CoagulationOrde red By: Carlos Cavazos on 06-28-2023 INR Coag (Bld) [Relative time] 1.7 {INR} [facility] PT Coag (PPP) [Time] 20.5 s 11.7-14.9 [facility] 36on 06-25-[address] [facility] called in stating appt scheduled 07/10/23 [place] has to be made further out, pt being transported by cot. Changed appt to 08/13/23 per [facility] only avail time for transport, first avail with DR Buck at 10:[address] [facility] Laboratory - CoagulationOrde red By: Carlos Cavazos on 06-25-2023 INR Coag (Bld) [Relative time] 3.8 {INR} [facility] PT Coag (PPP) [Time] 38.2 s 11.7-14.9 [facility] Laboratory - CoagulationOrde red By: Carlos Cavazos on 06-21-2023 INR Coag (Bld) [Relative time] 3.2 {INR} [facility] PT Coag (PPP) [Time] 32.9 s 11.7-14.9 [facility] No Panel InformationOrdered By: Carlos Cavazos on 06-13-2023 Valproic Acid (Depakene) Level < 3 ug/mL 50-100 [facility] Laboratory - CoagulationOrde red By: Carlos Cavazos on 06-06-2023 PT Coag (PPP) [Time] 30.5 s 11.7-14.9 [facility] Platelet poor plasma interna tional normalized ratio (INR)Ordered By: Carlos Cavazos on 06-06-2023 INR Coag (PPP) [Relative time] 2.9 {INR} [facility] International normalized rat io (INR) calculationOrdered By: Carlos Cavazos on 05-23-2023 INR Coag (PPP) [Relative time] 2.6 {INR} [facility] Laboratory - CoagulationOrde red By: Carlos Cavazos on 05-23-2023 PT Coag (PPP) [Time] 27.7 s 11.7-14.9 [facility] Laboratory - CoagulationOrde red By: Carlos Cavazos on 05-09-2023 PT Coag (PPP) [Time] 24.1 s 11.7-14.9 [facility] Whole blood international no rmalized ratio (INR)Ordered By: Carlos Cavazos on 05-09-2023 INR Coag (Bld) [Relative time] 2.1 {INR} [facility] Laboratory - CoagulationOrde red By: Carlos Cavazos on 04-23-2023 PT Coag (PPP) [Time] 26.4 s 11.7-14.9 [facility] Whole blood international no rmalized ratio (INR)Ordered By: Carlos Cavazos on 04-23-2023 INR Coag (Bld) [Relative time] 2.4 {INR} [facility] INR in Blood by Coagulation assayOrdered By: Carlos Cavazos on 04-09-2023 INR Coag (Bld) [Relative time] 2.1 {INR} [facility] Laboratory - CoagulationOrde red By: Carlos Cavazos on 04-09-2023 PT Coag (PPP) [Time] 23.9 s 11.7-14.9 [facility] INR in Blood by Coagulation assayOrdered By: Carlos Cavazos on 04-02-2023 INR Coag (Bld) [Relative time] 2.2 {INR} [facility] Laboratory - CoagulationOrde red By: Carlos Cavazos on 04-02-2023 PT Coag (PPP) [Time] 24.5 s 11.7-14.9 [facility] INR in Blood by Coagulation assayOrdered By: Carlos Cavazos on 03-26-2023 INR Coag (Bld) [Relative time] 1.7 {INR} [facility] Laboratory - CoagulationOrde red By: Carlos Cavazos on 03-26-2023 PT Coag (PPP) [Time] 19.9 s 11.7-14.9 [facility] INR in Blood by Coagulation assayOrdered By: Carlos Cavazos on 03-22-2023 INR Coag (Bld) [Relative time] 1.3 {INR} [facility] Laboratory - CoagulationOrde red By: Carlos Cavazos on 03-22-2023 PT Coag (PPP) [Time] 16.4 s 11.7-14.9 [facility] INR in Blood by Coagulation assayOrdered By: Carlos Cavazos on 03-08-2023 INR Coag (Bld) [Relative time] 2.0 {INR} [facility] Laboratory - CoagulationOrde red By: Carlos Cavazos on 03-08-2023 PT Coag (PPP) [Time] 22.5 s 11.7-14.9 [facility] Laboratory - CoagulationOrde red By: Carlos Cavazos on 02-22-2023 INR Coag (Bld) [Relative time] 2.2 {INR} [facility] Comment on above: Critical Value > 4.0 Whole blood prothrombin time Ordered By: Carlos Cavazos on 02-22-2023 PT Coag (Bld) [Time] 24.0 s 11.7-14.9 [facility] INR in Blood by Coagulation assayOrdered By: Cliff Bruner on 02-15-2023 INR Coag (Bld) [Relative time] 2.0 {INR} [facility] Laboratory - CoagulationOrde red By: Cliff Bruner on 02-15-2023 PT Coag (PPP) [Time] 22.8 s 11.7-14.9 [facility] INR in Blood by Coagulation assayOrdered By: Carlos Cavazos on 02-08-2023 INR Coag (Bld) [Relative time] 2.1 {INR} [facility] Laboratory - CoagulationOrde red By: Carlos Cavazos on 02-08-2023 PT Coag (PPP) [Time] 23.5 s 11.7-14.9 [facility] INR in Blood by Coagulation assayOrdered By: Carlos Cavazos on 01-31-2023 INR Coag (Bld) [Relative time] 2.0 {INR} [facility] Laboratory - CoagulationOrde red By: Carlos Cavazos on 01-31-2023 PT Coag (PPP) [Time] 22.4 s 11.7-14.9 [facility] Laboratory - CoagulationOrde red By: Carlos Cavazos on 01-29-2023 INR Coag (Bld) [Relative time] 1.8 {INR} [facility] Comment on above: Critical Value > 4.0 Whole blood prothrombin time Ordered By: Carlos Cavazos on 01-29-2023 PT Coag (Bld) [Time] 19.9 s 11.7-14.9 [facility] INR in Blood by Coagulation assayOrdered By: Carlos Cavazos on 01-26-2023 INR Coag (Bld) [Relative time] 1.5 {INR} [facility] Laboratory - CoagulationOrde red By: Carlos Cavazos on 01-26-2023 PT Coag (PPP) [Time] 18.3 s 11.7-14.9 [facility] INR in Blood by Coagulation assayOrdered By: Carlos Cavazos on 01-24-2023 INR Coag (Bld) [Relative time] 1.3 {INR} [facility] Laboratory - CoagulationOrde red By: Carlos Cavazos on 01-24-2023 PT Coag (PPP) [Time] 16.2 s 11.7-14.9 [facility] Basophil percentageOrdered B y: Carlos Cavazos on 01-22-2023 Basophil percentage 0 SEEN /hpf 0-5 [facility] Bilirubin Test strip Ql (U)O rdered By: Carlos Cavazos on 01-22-2023 Bilirubin Ql (U) Negative Negative [facility] Calcium oxalate crystals det ection in urine sediment by light microscopyOrdered By: Carlos Cavazos on 01-22-2023 Calcium oxalate crystals LM Ql (Urine sed) 1+ /hpf [facility] Culture, urineOrdered By: Sharif Crouch on 01-22-2023 Bacteria identified Cx Nom (U) Positive [facility] Ketones Test strip Ql (U)Ord ered By: Carlos Cavazos on 01-22-2023 Ketones Ql (U) Negative Negative [facility] Mucus LM Ql (Urine sed)Order ed By: Carlos Cavazos on 01-22-2023 Mucus Ql (Urine sed) 1+ /hpf [facility] Nitrite Test strip Ql (U)Ord ered By: Carlos Cavazos on 01-22-2023 Nitrite Ql (U) Negative Negative [facility] Protein Test strip Ql (U)Ord ered By: Carlos Cavazos on 01-22-2023 Protein Ql (U) Negative Negative [facility] Squamous epithelial cells de tection in urine sediment by light microscopyOrdered By: Carlos Cavazos on 01-22-2023 Epithelial cells.squamous LM Ql (Urine sed) 0 SEEN /hpf 0-5 [facility] Urine blood detectionOrdered By: Carlos Cavazos on 01-22-2023 RBC Ql (U) Negative Negative [facility] RBC Ql (U) 0 SEEN /hpf 0-5 [facility] Urine clarityOrdered By: Ted Cavazos on 01-22-2023 Clarity (U) Sl. Cloudy Clear [facility] Urine color determinationOrd ered By: Carlos Cavazos on 01-22-2023 Color (U) Yellow Yellow [facility] Urine glucose detectionOrder ed By: Carlos Cavazos on 01-22-2023 Glucose Ql (U) Normal mg/dl Normal [facility] Urine leukocyte esterase det ection by dipstickOrdered By: Carlos Cavazos on 01-22-2023 Leukocyte esterase Test strip Ql (U) Negative Negative [facility] Urine pHOrdered By: Carlos flores on 01-22-2023 pH (U) 5.0 [pH] 5.0 - 8.0 [facility] Urine sediment bacteria coun t by microscopy (number/high power field)Ordered By: Carlos Cavazos on 01-22-2023 Bacteria LM.HPF (Urine sed) [#/Area] 2 /[HPF] None Seen [facility] Urine specific gravity measu rementOrdered By: Carlos Cavazos on 01-22-2023 Specific gravity (U) [Rel density] 1.025 1.002-1.030 [facility] Urobilinogen Auto test strip Ql (U)Ordered By: Carlos Cavazos on 01-22-2023 Urobilinogen Ql (U) Normal mg/dl Normal [facility] INR in Blood by Coagulation assayOrdered By: Carlos Cavazos on 01-10-2023 INR Coag (Bld) [Relative time] 2.0 {INR} [facility] Laboratory - CoagulationOrde red By: Carlos Cavazos on 01-10-2023 PT Coag (PPP) [Time] 22.6 s 11.7-14.9 [facility] INR in Blood by Coagulation assayOrdered By: Carlos Cavazos on 12-27-2022 INR Coag (Bld) [Relative time] 2.1 {INR} [facility] Laboratory - CoagulationOrde red By: Carlos Cavazos on 12-27-2022 PT Coag (PPP) [Time] 24.1 s 11.7-14.9 [facility] INR in Blood by Coagulation assayOrdered By: Carlos Cavazos on 12-21-2022 INR Coag (Bld) [Relative time] 2.4 {INR} [facility] Laboratory - CoagulationOrde red By: Carlos Cavazos on 12-21-2022 PT Coag (PPP) [Time] 26.7 s 11.7-14.9 [facility] Laboratory - CoagulationOrde red By: Carlos Cavazos on 12-14-2022 INR Coag (Bld) [Relative time] 2.3 {INR} [facility] Comment on above: Critical Value > 4.0 Whole blood prothrombin time Ordered By: Carlos Cavazos on 12-14-2022 PT Coag (Bld) [Time] 25.2 s 11.7-14.9 [facility] Laboratory - CoagulationOrde red By: Carlos Cavazos on 12-07-2022 INR Coag (Bld) [Relative time] 2.5 {INR} [facility] Comment on above: Critical Value > 4.0 Whole blood prothrombin time Ordered By: Carlos Cavazos on 12-07-2022 PT Coag (Bld) [Time] 26.9 s 11.7-14.9 [facility] Amorphous sediment detection in urine sediment by light microscopyOrdered By: Carlos Cavazos on 11-24-2022 Amorphous sediment LM Ql (Urine sed) 1+ [facility] Basophil percentageOrdered B y: Carlos Cavazos on 11-24-2022 Basophil percentage 0 SEEN /hpf 0-5 [facility] Bilirubin [Mass/Vol] 0.30 mg/dL 0.20-1.00 [facility] Comment on above: For patients on eltr ombopag therapy, use of Dimension [place] TBIL is not recommended. Chloride [Moles/Vol] 107 mmol/L 98-107 [facility] Glucose [Mass/Vol] 95 mg/dL 74-106 [facility] [place] Potassium [Moles/Vol] 4.2 mmol/L 3.5-5.1 [facility] Protein [Mass/Vol] 6.9 g/dL 6.4-8.2 [facility] [place] Sodium [Moles/Vol] 138 mmol/L 136-145 [facility] [place] WBC (Bld) [#/Vol] 10.4 10*3/uL 4.4-11.0 [facility] Bilirubin Test strip Ql (U)O rdered By: Carlos Cavazos on 11-24-2022 Bilirubin Ql (U) Negative Negative [facility] Blood erythrocytes count (nu mber/volume)Ordered By: Carlos Cavazos on 11-24-2022 RBC (Bld) [#/Vol] 4.44 10*6/uL 4.6-6.2 [facility] Blood hemoglobin measurement (mass/volume)Ordered By: Carlos Cavazos on 11-24-2022 Hemoglobin (Bld) [Mass/Vol] 11.8 g/dL 13.0-16.5 [facility] Blood platelet mean volumeOr dered By: Carlos Cavazos on 11-24-2022 Platelet mean volume (Bld) [Entitic vol] 9.7 fL 6.2-12.0 [facility] Calcium oxalate crystals det ection in urine sediment by light microscopyOrdered By: Carlos Cavazos on 11-24-2022 Calcium oxalate crystals LM Ql (Urine sed) RARE /hpf [facility] Culture, urineOrdered By: Sharif Crouch on 11-24-2022 Bacteria identified Cx Nom (U) Positive [facility] Determination of erythrocyte mean corpuscular volume (MCV)Ordered By: Carlos Cavazos on 11-24-2022 MCV (RBC) [Entitic vol] 84.7 fL 80-94 [facility] Hematocrit Auto (Bld) [Volum e fraction]Ordered By: Carlos Cavazos on 11-24-2022 Hematocrit (Bld) [Volume fraction] 37.6 % 40-54 [facility] Ketones Test strip Ql (U)Ord ered By: Carlos Cavazos on 11-24-2022 Ketones Ql (U) Negative Negative [facility] Laboratory - Chemistry and C hemistry - challengeOrdered By: Carlos Cavazos on 11-24-2022 ALP [Catalytic activity/Vol] 103 U/L 45-117 [facility] ALT [Catalytic activity/Vol] 14 U/L 16-61 [facility] CO2 [Moles/Vol] 26.0 mmol/L 21.0-32.0 [facility] Globulin (S) [Mass/Vol] 4.0 g/dL 2.2-4.2 [facility] Urea nitrogen/Creatinine [Mass ratio] 24.1 mg/mg 10-20 [facility] Laboratory - Hematology and Cell countsOrdered By: Carlos Cavazos on 11-24-2022 Erythrocyte distribution width (RBC) [Entitic vol] 49.4 fL 35.1-43.9 [facility] Erythrocyte distribution width (RBC) [Ratio] 16.0 % 11.6-14.6 [facility] MCH (RBC) [Entitic mass] 26.6 pg 27.0-32.0 [facility] MCHC Auto (RBC) [Mass/Vol]Or dered By: Carlos Cavazos on 11-24-2022 MCHC (RBC) [Mass/Vol] 31.4 g/dL 32-36 [facility] Mucus LM Ql (Urine sed)Order ed By: Carlos Cavazos on 11-24-2022 Mucus Ql (Urine sed) 0 SEEN /hpf [facility] Nitrite Test strip Ql (U)Ord ered By: aCrlos Cavazos on 11-24-2022 Nitrite Ql (U) Negative Negative [facility] No Panel InformationOrdered By: Carlos Cavazos on 11-24-2022 Estimated GFR (MDRD) Amer 118 mL/min >60 [facility] Comment on above: GFR Calc Estimated GFR (MDRD) Non-Af Amer 97 mL/min >60 [facility] Comment on above: Non- GFR Calc Platelets bldOrdered By: Ted Cavazos on 11-24-2022 Platelets (Bld) [#/Vol] 309 10*3/uL 150-450 [facility] Protein Test strip Ql (U)Ord ered By: Carlos Cavazos on 11-24-2022 Protein Ql (U) Negative Negative [facility] Serum or plasma albumin oral urement (mass/volume)Ordered By: Carlos Cavazos on 11-24-2022 Albumin [Mass/Vol] 2.9 g/dL 3.2-5.0 [facility] [place] Serum or plasma albumin/glob ulin mass ratioOrdered By: Carlos Cavazos on 11-24-2022 Albumin/Globulin [Mass ratio] 0.7 {ratio} 0.9-2.4 [facility] Serum or plasma calcium oral urement (mass/volume)Ordered By: Carlos Cavazos on 11-24-2022 Calcium [Mass/Vol] 8.7 mg/dL 8.5-10.1 [facility] [place] Serum or plasma creatinine m easurement (mass/volume)Ordered By: Carlos Cavazos on 11-24-2022 Creatinine [Mass/Vol] 0.83 mg/dL 0.70-1.30 [facility] Comment on above: The validity of the calculated GFR & GFRAA in patients over 70 years has not been determined. Clinical correlation is essential. Serum or plasma urea nitroge n measurement (mass/volume)Ordered By: Carlos Cavazos on 11-24-2022 Urea nitrogen [Mass/Vol] 20 mg/dL 7-18 [facility] Squamous epithelial cells de tection in urine sediment by light microscopyOrdered By: Carlos Cavazos on 11-24-2022 Epithelial cells.squamous LM Ql (Urine sed) 0 SEEN /hpf 0-5 [facility] Thin prep Papanicolaou smear with manual screeningOrdered By: Carlos Cavazos on 11-24-2022 Thin prep Papanicolaou smear with manual screening 10 U/L 15-37 [facility] Thin prep Papanicolaou smear with manual screening 5 5-15 [facility] Urine blood detectionOrdered By: Carlos Cavazos on 11-24-2022 RBC Ql (U) Negative Negative [facility] RBC Ql (U) 0 SEEN /hpf 0-5 [facility] Urine clarityOrdered By: Ted Cavazos on 11-24-2022 Clarity (U) Clear Clear [facility] Urine color determinationOrd ered By: Carlos Cavazos on 11-24-2022 Color (U) Yellow Yellow [facility] Urine glucose detectionOrder ed By: Carlos Cavazos on 11-24-2022 Glucose Ql (U) Normal mg/dl Normal [facility] Urine leukocyte esterase det ection by dipstickOrdered By: Carlos Cavazos on 11-24-2022 Leukocyte esterase Test strip Ql (U) Negative Negative [facility] Urine pHOrdered By: Carlos flores on 11-24-2022 pH (U) 7.0 [pH] 5.0 - 8.0 [facility] Urine sediment bacteria coun t by microscopy (number/high power field)Ordered By: Carlos Cavazos on 11-24-2022 Bacteria LM.HPF (Urine sed) [#/Area] 0 /[HPF] None Seen [facility] Urine specific gravity measu rementOrdered By: Carlos Cavazos on 11-24-2022 Specific gravity (U) [Rel density] 1.010 1.002-1.030 [facility] Urobilinogen Auto test strip Ql (U)Ordered By: Carlos Cavazos on 11-24-2022 Urobilinogen Ql (U) Normal mg/dl Normal [facility] Laboratory - CoagulationOrde red By: Carlos Cavazos on 11-23-2022 INR Coag (Bld) [Relative time] 2.2 {INR} [facility] Comment on above: Critical Value > 4.0 Whole blood prothrombin time Ordered By: Carlos Cavazos on 11-23-2022 PT Coag (Bld) [Time] 24.5 s 11.7-14.9 [facility] Basophil percentageOrdered B y: Carlos Cavazos on 11-22-2022 Chloride [Moles/Vol] 105 mmol/L 98-107 [facility] Glucose [Mass/Vol] 91 mg/dL 74-106 [facility] [place] Potassium [Moles/Vol] 4.1 mmol/L 3.5-5.1 [facility] Sodium [Moles/Vol] 138 mmol/L 136-145 [facility] [place] WBC (Bld) [#/Vol] 12.0 10*3/uL 4.4-11.0 [facility] Blood erythrocytes count (nu mber/volume)Ordered By: Carlos Cavazos on 11-22-2022 RBC (Bld) [#/Vol] 4.65 10*6/uL 4.6-6.2 [facility] Blood hemoglobin measurement (mass/volume)Ordered By: Carlos Cavazos on 11-22-2022 Hemoglobin (Bld) [Mass/Vol] 12.4 g/dL 13.0-16.5 [facility] Blood platelet mean volumeOr dered By: Carlos Cavazos on 11-22-2022 Platelet mean volume (Bld) [Entitic vol] 10.3 fL 6.2-12.0 [facility] Determination of erythrocyte mean corpuscular volume (MCV)Ordered By: Carlos Cavazos on 11-22-2022 MCV (RBC) [Entitic vol] 86.0 fL 80-94 [facility] Hematocrit Auto (Bld) [Volum e fraction]Ordered By: Carlos Cavazos on 11-22-2022 Hematocrit (Bld) [Volume fraction] 40.0 % 40-54 [facility] Laboratory - Chemistry and C hemistry - challengeOrdered By: Carlos Cavazos on 11-22-2022 CO2 [Moles/Vol] 25.0 mmol/L 21.0-32.0 [facility] Urea nitrogen/Creatinine [Mass ratio] 23.6 mg/mg 10-20 [facility] Laboratory - Hematology and Cell countsOrdered By: Calros Cavazos on 11-22-2022 Erythrocyte distribution width (RBC) [Entitic vol] 50.0 fL 35.1-43.9 [facility] Erythrocyte distribution width (RBC) [Ratio] 15.9 % 11.6-14.6 [facility] MCH (RBC) [Entitic mass] 26.7 pg 27.0-32.0 [facility] MCHC Auto (RBC) [Mass/Vol]Or dered By: Carlos Cavazos on 11-22-2022 MCHC (RBC) [Mass/Vol] 31.0 g/dL 32-36 [facility] No Panel InformationOrdered By: Carlos Cavazos on 11-22-2022 Estimated GFR (MDRD) Amer 115 mL/min >60 [facility] Comment on above: GFR Calc Estimated GFR (MDRD) Non-Af Amer 95 mL/min >60 [facility] Comment on above: Non- GFR Calc Platelets bldOrdered By: Pet er Kenny on 11-22-2022 Platelets (Bld) [#/Vol] 320 10*3/uL 150-450 [facility] Serum or plasma calcium oral urement (mass/volume)Ordered By: Carlos Cavazos on 11-22-2022 Calcium [Mass/Vol] 8.7 mg/dL 8.5-10.1 [facility] [place] Serum or plasma creatinine m easurement (mass/volume)Ordered By: Carlos Cavazos on 11-22-2022 Creatinine [Mass/Vol] 0.85 mg/dL 0.70-1.30 [facility] Comment on above: The validity of the calculated GFR & GFRAA in patients over 70 years has not been determined. Clinical correlation is essential. Serum or plasma urea nitroge n measurement (mass/volume)Ordered By: Carlos Cavazos on 11-22-2022 Urea nitrogen [Mass/Vol] 20 mg/dL 7-18 [facility] Thin prep Papanicolaou smear with manual screeningOrdered By: Carlos Cavazos on 11-22-2022 Thin prep Papanicolaou smear with manual screening 8 5-15 [facility] Laboratory - CoagulationOrde red By: Carlos Cavazos on 11-09-2022 INR Coag (Bld) [Relative time] 2.1 {INR} [facility] Comment on above: Critical Value > 4.0 Whole blood prothrombin time Ordered By: Carlos Cavazos on 11-09-2022 PT Coag (Bld) [Time] 22.6 s 11.7-14.9 [facility] Laboratory - CoagulationOrde red By: Carlos Cavazos on 10-26-2022 INR Coag (Bld) [Relative time] 2.6 {INR} [facility] Comment on above: Critical Value > 4.0 Whole blood prothrombin time Ordered By: Carlos Cavazos on 10-26-2022 PT Coag (Bld) [Time] 28.5 s 11.7-14.9 [facility] - CoagulationOrde red By: Carlos Cavazos on 10-12-2022 INR Coag (Bld) [Relative time] 2.4 {INR} [facility] Comment on above: Critical Value > 4.0 Whole blood prothrombin time Ordered By: Carlos Cvaazos on 10-12-2022 PT Coag (Bld) [Time] 26.4 s 11.7-14.9 [facility] - CoagulationOrde red By: Carlos Cavazos on 10-05-2022 INR Coag (Bld) [Relative time] 2.6 {INR} [facility] Comment on above: Critical Value > 4.0 Whole blood prothrombin time Ordered By: aCrlos Cavazos on 10-05-2022 PT Coag (Bld) [Time] 28.0 s 11.7-14.9 [facility] - CoagulationOrde red By: Carlos Cavazos on 09-28-2022 INR Coag (Bld) [Relative time] 2.7 {INR} [facility] Comment on above: Critical Value > 4.0 Whole blood prothrombin time Ordered By: Carlos Cavazos on 09-28-2022 PT Coag (Bld) [Time] 28.9 s 11.7-14.9 [facility] - CoagulationOrde red By: Carlos Cavazos on 09-14-2022 INR Coag (Bld) [Relative time] 2.5 {INR} [facility] Comment on above: Critical Value > 4.0 Whole blood prothrombin time Ordered By: Carlos Cavazos on 09-14-2022 PT Coag (Bld) [Time] 27.4 s 11.7-14.9 [facility] - CoagulationOrde red By: Carlos Cavazos on 08-31-2022 INR Coag (Bld) [Relative time] 2.3 {INR} [facility] Comment on above: Critical Value > 4.0 Whole blood prothrombin time Ordered By: Carlos Cavazos on 08-31-2022 PT Coag (Bld) [Time] 25.4 s 11.7-14.9 [facility] Basophil percentageOrdered B y: Carlos Cavazos on 08-23-2022 Chloride [Moles/Vol] 108 mmol/L 98-107 [facility] Glucose [Mass/Vol] 86 mg/dL 74-106 [facility] Potassium [Moles/Vol] 4.3 mmol/L 3.5-5.1 [facility] Sodium [Moles/Vol] 136 mmol/L 136-145 [facility] WBC (Bld) [#/Vol] 10.0 10*3/uL 4.4-11.0 [facility] Blood erythrocytes count (nu mber/volume)Ordered By: Carlos Cavazos on 08-23-2022 RBC (Bld) [#/Vol] 4.77 10*6/uL 4.6-6.2 [facility] Blood hemoglobin measurement (mass/volume)Ordered By: Carlos Cavazos on 08-23-2022 Hemoglobin (Bld) [Mass/Vol] 12.5 g/dL 13.0-16.5 [facility] Blood platelet mean volumeOr dered By: Carlos Cavazos on 08-23-2022 Platelet mean volume (Bld) [Entitic vol] 11.0 fL 6.2-12.0 [facility] Determination of erythrocyte mean corpuscular volume (MCV)Ordered By: Carlos Cavazos on 08-23-2022 MCV (RBC) [Entitic vol] 84.3 fL 80-94 [facility] Hematocrit Auto (Bld) [Volum e fraction]Ordered By: Carlos Cavazos on 08-23-2022 Hematocrit (Bld) [Volume fraction] 40.2 % 40-54 [facility] Laboratory - Chemistry and C hemistry - challengeOrdered By: Carlos Cavazos on 08-23-2022 CO2 [Moles/Vol] 24.0 mmol/L 21.0-32.0 [facility] Urea nitrogen/Creatinine [Mass ratio] 22.8 mg/mg 10-20 [facility] Laboratory - Hematology and Cell countsOrdered By: Carlos Cavazos on 08-23-2022 Erythrocyte distribution width (RBC) [Entitic vol] 49.3 fL 35.1-43.9 [facility] Erythrocyte distribution width (RBC) [Ratio] 16.0 % 11.6-14.6 [facility] MCH (RBC) [Entitic mass] 26.2 pg 27.0-32.0 [facility] MCHC Auto (RBC) [Mass/Vol]Or dered By: Carlos Cavazos on 08-23-2022 MCHC (RBC) [Mass/Vol] 31.1 g/dL 32-36 [facility] No Panel InformationOrdered By: Carlos Cavazos on 08-23-2022 Estimated GFR (MDRD) Amer 134 mL/min >60 [facility] Comment on above: GFR Calc Estimated GFR (MDRD) Non-Af Amer 110 mL/min >60 [facility] Comment on above: Non- GFR Calc Platelets bldOrdered By: Ted Cavazos on 08-23-2022 Platelets (Bld) [#/Vol] 268 10*3/uL 150-450 [facility] Serum or plasma calcium oral urement (mass/volume)Ordered By: Carlos Cavazos on 08-23-2022 Calcium [Mass/Vol] 9.1 mg/dL 8.5-10.1 [facility] Serum or plasma creatinine m easurement (mass/volume)Ordered By: Carlos Cavazos on 08-23-2022 Creatinine [Mass/Vol] 0.74 mg/dL 0.70-1.30 [facility] Comment on above: The validity of the calculated GFR & GFRAA in patients over 70 years has not been determined. Clinical correlation is essential. Serum or plasma urea nitroge n measurement (mass/volume)Ordered By: Carlos Cavazos on 08-23-2022 Urea nitrogen [Mass/Vol] 17 mg/dL 7-18 [facility] Thin prep Papanicolaou smear with manual screeningOrdered By: Carlos Cavazos on 08-23-2022 Thin prep Papanicolaou smear with manual screening 4 5-15 [facility] - CoagulationOrde red By: Carlos Cavazos on 08-17-2022 INR Coag (Bld) [Relative time] 2.8 {INR} [facility] Comment on above: Critical Value > 4.0 Whole blood prothrombin time Ordered By: Carlos Cavazos on 08-17-2022 PT Coag (Bld) [Time] 29.6 s 11.7-14.9 [facility] - CoagulationOrde red By: Carlos Cavazos on 08-14-2022 INR Coag (Bld) [Relative time] 3.9 {INR} [facility] Comment on above: Critical Value > 4.0 Whole blood prothrombin time Ordered By: Carlos Cavazos on 08-14-2022 PT Coag (Bld) [Time] 40.6 s 11.7-14.9 [facility] - CoagulationOrde red By: Carlos Cavazos on 07-31-2022 INR Coag (Bld) [Relative time] 2.5 {INR} [facility] Comment on above: Critical Value > 4.0 Whole blood prothrombin time Ordered By: Carlos Cavazos on 07-31-2022 PT Coag (Bld) [Time] 26.8 s 11.7-14.9 [facility] INR in Blood by Coagulation assayOrdered By: Carlos Cavazos on 07-24-2022 INR Coag (Bld) [Relative time] 2.3 {INR} [facility] - CoagulationOrde red By: Carlos Cavazos on 07-24-2022 PT Coag (PPP) [Time] 24.7 s 11.7-14.9 [facility] - CoagulationOrde red By: Carlos Cavazos on 07-20-2022 INR Coag (Bld) [Relative time] 1.9 {INR} [facility] Comment on above: Critical Value > 4.0 Whole blood prothrombin time Ordered By: Carlos Cavazos on 07-20-2022 PT Coag (Bld) [Time] 20.6 s 11.7-14.9 [facility] - CoagulationOrde red By: Carlos Cavazos on 07-17-2022 INR Coag (Bld) [Relative time] 1.3 {INR} [facility] Comment on above: Critical Value > 4.0 Whole blood prothrombin time Ordered By: Carlos Cavazos on 07-17-2022 PT Coag (Bld) [Time] 15.9 s 11.7-14.9 [facility] Basophil percentageOrdered B y: Carlos Cavazos on 07-11-2022 Chloride [Moles/Vol] 105 mmol/L 98-107 [facility] Glucose [Mass/Vol] 97 mg/dL 74-106 [facility] Potassium [Moles/Vol] 3.9 mmol/L 3.5-5.1 [facility] Sodium [Moles/Vol] 140 mmol/L 136-145 [facility] WBC (Bld) [#/Vol] 9.4 10*3/uL 4.4-11.0 [facility] Blood erythrocytes count (nu mber/volume)Ordered By: Carlos Cavazos on 07-11-2022 RBC (Bld) [#/Vol] 4.66 10*6/uL 4.6-6.2 [facility] Blood hemoglobin measurement (mass/volume)Ordered By: Carlos Cavazos on 07-11-2022 Hemoglobin (Bld) [Mass/Vol] 12.0 g/dL 13.0-16.5 [facility] Blood platelet mean volumeOr dered By: Carlos Cavazos on 07-11-2022 Platelet mean volume (Bld) [Entitic vol] 10.4 fL 6.2-12.0 [facility] Determination of erythrocyte mean corpuscular volume (MCV)Ordered By: Carlos Cavazos on 07-11-2022 MCV (RBC) [Entitic vol] 83.7 fL 80-94 [facility] Hematocrit Auto (Bld) [Volum e fraction]Ordered By: Carlos Cavazos on 07-11-2022 Hematocrit (Bld) [Volume fraction] 39.0 % 40-54 [facility] Laboratory - Chemistry and C hemistry - challengeOrdered By: Carlos Cavazos on 07-11-2022 CO2 [Moles/Vol] 28.0 mmol/L 21.0-32.0 [facility] Urea nitrogen/Creatinine [Mass ratio] 23.0 mg/mg 10-20 [facility] Laboratory - Hematology and Cell countsOrdered By: Carlos Cavazos on 07-11-2022 Erythrocyte distribution width (RBC) [Entitic vol] 51.0 fL 35.1-43.9 [facility] Erythrocyte distribution width (RBC) [Ratio] 16.8 % 11.6-14.6 [facility] MCH (RBC) [Entitic mass] 25.8 pg 27.0-32.0 [facility] MCHC Auto (RBC) [Mass/Vol]Or dered By: Carlos Cavazos on 07-11-2022 MCHC (RBC) [Mass/Vol] 30.8 g/dL 32-36 [facility] No Panel InformationOrdered By: Carlos Cavazos on 07-11-2022 Estimated GFR (MDRD) Amer 126 mL/min >60 [facility] Comment on above: GFR Calc Estimated GFR (MDRD) Non-Af Amer 104 mL/min >60 [facility] Comment on above: Non- GFR Calc Platelets bldOrdered By: Ted Cavazos on 07-11-2022 Platelets (Bld) [#/Vol] 291 10*3/uL 150-450 [facility] Serum or plasma calcium oral urement (mass/volume)Ordered By: Carlos Cavazos on 07-11-2022 Calcium [Mass/Vol] 9.2 mg/dL 8.5-10.1 [facility] Serum or plasma creatinine m easurement (mass/volume)Ordered By: Carlos Cavazos on 07-11-2022 Creatinine [Mass/Vol] 0.78 mg/dL 0.70-1.30 [facility] Comment on above: The validity of the calculated GFR & GFRAA in patients over 70 years has not been determined. Clinical correlation is essential. Serum or plasma urea nitroge n measurement (mass/volume)Ordered By: Carlos Cavazos on 07-11-2022 Urea nitrogen [Mass/Vol] 18 mg/dL 7-18 [facility] Thin prep Papanicolaou smear with manual screeningOrdered By: Carlos Cavazos on 07-11-2022 Thin prep Papanicolaou smear with manual screening 7 5-15 [facility] - CoagulationOrde red By: Carlos Cavazos on 07-10-2022 INR Coag (Bld) [Relative time] 1.8 {INR} [facility] Comment on above: Critical Value > 4.0 Whole blood prothrombin time Ordered By: Carlos Cavazos on 07-10-2022 PT Coag (Bld) [Time] 21.0 s 11.7-14.9 [facility] - CoagulationOrde red By: Carlos Cavazos on 07-03-2022 INR Coag (Bld) [Relative time] 1.9 {INR} [facility] Comment on above: Critical Value > 4.0 Whole blood prothrombin time Ordered By: Carlos Cavazos on 07-03-2022 PT Coag (Bld) [Time] 22.7 s 11.7-14.9 [facility] INR in Blood by Coagulation assayOrdered By: Carlos Cavazos on 06-27-2022 INR Coag (Bld) [Relative time] 2.9 {INR} [facility] - CoagulationOrde red By: Carlos Cavazos on 06-27-2022 PT Coag (PPP) [Time] 29.9 s 11.7-14.9 [facility] - CoagulationOrde red By: Carlos Cavazos on 06-13-2022 INR Coag (Bld) [Relative time] 2.1 {INR} [facility] Comment on above: Critical Value > 4.0 Whole blood prothrombin time Ordered By: Carlos Cavazos on 06-13-2022 PT Coag (Bld) [Time] 24.4 s 11.7-14.9 [facility] - CoagulationOrde red By: Carlos Cavazos on 06-06-2022 INR Coag (Bld) [Relative time] 1.5 {INR} [facility] Comment on above: Critical Value > 4.0 Whole blood prothrombin time Ordered By: Carlos Cavazos on 06-06-2022 PT Coag (Bld) [Time] 18.4 s 11.7-14.9 [facility] Basophil percentageOrdered B y: Carlos Cavazos on 05-30-2022 Chloride [Moles/Vol] 105 mmol/L 98-107 [facility] Glucose [Mass/Vol] 95 mg/dL 74-106 [facility] Potassium [Moles/Vol] 3.9 mmol/L 3.5-5.1 [facility] Sodium [Moles/Vol] 140 mmol/L 136-145 [facility] WBC (Bld) [#/Vol] 7.6 10*3/uL 4.4-11.0 [facility] Blood erythrocytes count (nu mber/volume)Ordered By: Carlos Cavazos on 05-30-2022 RBC (Bld) [#/Vol] 4.79 10*6/uL 4.6-6.2 [facility] Blood hemoglobin measurement (mass/volume)Ordered By: Carlos Cavazos on 05-30-2022 Hemoglobin (Bld) [Mass/Vol] 12.1 g/dL 13.0-16.5 [facility] Blood platelet mean volumeOr dered By: Carlos Cavazos on 05-30-2022 Platelet mean volume (Bld) [Entitic vol] 10.4 fL 6.2-12.0 [facility] Determination of erythrocyte mean corpuscular volume (MCV)Ordered By: Carlos Cavazos on 05-30-2022 MCV (RBC) [Entitic vol] 82.5 fL 80-94 [facility] Hematocrit Auto (Bld) [Volum e fraction]Ordered By: Carlos Cavazos on 05-30-2022 Hematocrit (Bld) [Volume fraction] 39.5 % 40-54 [facility] INR in Blood by Coagulation assayOrdered By: Carlos Cavazos on 05-30-2022 INR Coag (Bld) [Relative time] 1.9 {INR} [facility] Laboratory - Chemistry and C hemistry - challengeOrdered By: Carlos Cavazos on 05-30-2022 CO2 [Moles/Vol] 27.0 mmol/L 21.0-32.0 [facility] Urea nitrogen/Creatinine [Mass ratio] 21.4 mg/mg 10-20 [facility] - CoagulationOrde red By: Carlos Cavazos on 05-30-2022 PT Coag (PPP) [Time] 21.6 s 11.7-14.9 [facility] - Hematology and Cell countsOrdered By: Carlos Cavazos on 05-30-2022 Erythrocyte distribution width (RBC) [Entitic vol] 48.8 fL 35.1-43.9 [facility] Erythrocyte distribution width (RBC) [Ratio] 16.2 % 11.6-14.6 [facility] MCH (RBC) [Entitic mass] 25.3 pg 27.0-32.0 [facility] MCHC Auto (RBC) [Mass/Vol]Or dered By: Carlos Cavazos on 05-30-2022 MCHC (RBC) [Mass/Vol] 30.6 g/dL 32-36 [facility] No Panel InformationOrdered By: Carlos Cavazos on 05-30-2022 Estimated GFR (MDRD) Amer 133 mL/min >60 [facility] Comment on above: GFR Calc Estimated GFR (MDRD) Non-Af Amer 110 mL/min >60 [facility] Comment on above: Non- GFR Calc Platelets bldOrdered By: Ted Cavazos on 05-30-2022 Platelets (Bld) [#/Vol] 308 10*3/uL 150-450 [facility] Serum or plasma calcium oral urement (mass/volume)Ordered By: Carlos Cavazos on 05-30-2022 Calcium [Mass/Vol] 9.1 mg/dL 8.5-10.1 [facility] Serum or plasma creatinine m easurement (mass/volume)Ordered By: Carlos Cavazos on 05-30-2022 Creatinine [Mass/Vol] 0.75 mg/dL 0.70-1.30 [facility] Comment on above: The validity of the calculated GFR & GFRAA in patients over 70 years has not been determined. Clinical correlation is essential. Serum or plasma urea nitroge n measurement (mass/volume)Ordered By: Carlos Cavazos on 05-30-2022 Urea nitrogen [Mass/Vol] 16 mg/dL 7-18 [facility] Thin prep Papanicolaou smear with manual screeningOrdered By: Carlos Cavazos on 05-30-2022 Thin prep Papanicolaou smear with manual screening 8 5-15 [facility] - CoagulationOrde red By: Carlos Cavazos on 05-16-2022 INR Coag (Bld) [Relative time] 2.6 {INR} [facility] Comment on above: Critical Value > 4.0 Whole blood prothrombin time Ordered By: Carlos Cavazos on 05-16-2022 PT Coag (Bld) [Time] 29.9 s 11.7-14.9 [facility] - CoagulationOrde red By: Carlos Cavazos on 05-02-2022 INR Coag (Bld) [Relative time] 2.0 {INR} [facility] Comment on above: Critical Value > 4.0 Whole blood prothrombin time Ordered By: Carlos Cavazos on 05-02-2022 PT Coag (Bld) [Time] 23.2 s 11.7-14.9 [facility] - CoagulationOrde red By: Carlos Cavazos on 04-27-2022 INR Coag (Bld) [Relative time] 2.7 {INR} [facility] Comment on above: Critical Value > 4.0 Whole blood prothrombin time Ordered By: Carlos Cavazos on 04-27-2022 PT Coag (Bld) [Time] 31.1 s 11.7-14.9 [facility] - CoagulationOrde red By: Carlos Cavazos on 04-26-2022 INR Coag (Bld) [Relative time] 2.8 {INR} [facility] Comment on above: Critical Value > 4.0 Whole blood prothrombin time Ordered By: Carlos Cavazos on 04-26-2022 PT Coag (Bld) [Time] 32.6 s 11.7-14.9 [facility] - CoagulationOrde red By: Carlos Cavazos on 04-11-2022 INR Coag (Bld) [Relative time] 2.9 {INR} [facility] Comment on above: Critical Value > 4.0 Whole blood prothrombin time Ordered By: Carlos Cavazos on 04-11-2022 PT Coag (Bld) [Time] 32.8 s 11.7-14.9 [facility] - CoagulationOrde red By: Carlos Cavazos on 03-28-2022 INR Coag (Bld) [Relative time] 2.1 {INR} [facility] Comment on above: Critical Value > 4.0 Whole blood prothrombin time Ordered By: Carlos Cavazos on 03-28-2022 PT Coag (Bld) [Time] 24.8 s 11.7-14.9 [facility] - CoagulationOrde red By: Carlos Cavazos on 03-23-2022 INR Coag (Bld) [Relative time] 1.7 {INR} [facility] Comment on above: Critical Value > 4.0 Whole blood prothrombin time Ordered By: Carlos Cavazos on 03-23-2022 PT Coag (Bld) [Time] 20.9 s 11.7-14.9 [facility] - CoagulationOrde red By: Carlos Cavazos on 03-16-2022 INR Coag (Bld) [Relative time] 1.7 {INR} [facility] Comment on above: Critical Value > 4.0 Whole blood prothrombin time Ordered By: Carlos Cavazos on 03-16-2022 PT Coag (Bld) [Time] 19.9 s 11.7-14.9 [facility] - CoagulationOrde red By: Carlos Cavazos on 03-09-2022 INR Coag (Bld) [Relative time] 1.8 {INR} [facility] Comment on above: Critical Value > 4.0 Whole blood prothrombin time Ordered By: Carlos Cavazos on 03-09-2022 PT Coag (Bld) [Time] 21.9 s 11.7-14.9 [facility] - CoagulationOrde red By: Carlos Cavazos on 03-06-2022 INR Coag (Bld) [Relative time] 1.7 {INR} [facility] Comment on above: Critical Value > 4.0 Whole blood prothrombin time Ordered By: Carlos Cavazos on 03-06-2022 PT Coag (Bld) [Time] 20.0 s 11.7-14.9 [facility] CBC with Auto Differentialon 03-02-2022 Absolute Baso [...] - 10.7 10*3/uL [facility] Test Performed by [facility], [address] [place] [id number] [place] [address] HEAD WO CONTRASTon 2021 Patient Name: ANDREW SIFUENTES Computed Tomography ACCESSION EXAM DATE/TIME PROCEDURE ORDERING PROVIDER [id number] 03/02/2022 13:[address] Head or Brain w/o [id number] -LANETTE MUNGUIA Contrast CPT code 28179 Reason For Exam (CT Head or Brain [...] tubes (parent active on the left for [employer] shunting and disconnected on the right). 2. No definite evidence of acute infarction (MRI more sensitive), mass lesion, nor hemorrhage. Report Dictated on --- Final --- Dictated: 03/02/2022 1:35 pm Dictating Physician: MD GUTIERREZ WILLIAM Signed Date and Time: 03/02/2022 1:39 pm Signed by: MD GUTIERREZ WILLIAM Transcribed Date and Time: 03/02/2022 1:35 [facility] Anant Gutierrez MD - 03/02/2022 [id number] ACCESSION EXAM DATE/TIME PROCEDURE ORDERING PROVIDER [id number] 03/02/2022 13:[address] Head or Brain w/o [id number] -LANETTE MUNGUIA Contrast CPT code 49873 Reason For Exam (CT Head or Brain [...] tubes (parent active on the left for [employer] shunting and disconnected on the right). 2. [...] Tomography ACCESSION EXAM DATE/TIME PROCEDURE ORDERING PROVIDER [id number] 03/02/2022 13:[address] Head or Brain w/o [id number] -LANETTE MUNGUIA Contrast CPT code 88224 Reason For Exam (CT Head or Brain [...] tubes (parent active on the left for [employer] shunting and disconnected on the right). 2. No definite evidence of acute infarction (MRI more sensitive), mass lesion, nor hemorrhage. Report Dictated on Final Dictated: 03/02/2022 1:35 pm Dictating Physician: MD GUTIERREZ WILLIAM Signed Date and Time: 03/02/2022 1:39 pm Signed by: MD GUTIERREZ WILLIAM Transcribed Date and Time: 03/02/2022 1:35 Normal [facility] Comp Metabolic Panelon 03-02 Calcium [Mass/Vol] 9.1 mg/dL Normal 8.4-10.4 [facility] Comment on above: Performed By: #### H TIERA PT, CMP3 ####[facility] [place], [place] ALP [Catalytic activity/Vol] 128 U/L High 38-126 [facility] Comment on above: Performed By: #### H TIERA PT, CMP3 ####[facility] [place], [place] ALT [Catalytic activity/Vol] 12 U/L Normal 0-49 [facility] Comment on above: Result Comment: The ALT test is performed by an updated assay method. Please note that the reference intervals have been changed and are now sex specific. Performed By: #### H EMDF PT, CMP3 ####[facility] [place], [place] Anion gap [Moles/Vol] 7 mmol/L Normal 3-13 [facility] Comment on above: Performed By: #### H BIMALF PT, CMP3 ####[place] [id number] [place], [place] AST [Catalytic activity/Vol] 24 U/L Normal 15-46 [facility] Comment on above: Performed By: #### H EMDF, PT, CMP3 ####[facility] [place], [place] Bilirubin [Mass/Vol] 0.4 mg/dL Normal 0.2-1.3 [facility] Comment on above: Performed By: #### H EMDF, PT, CMP3 ####[facility] [place], [place] CO2 [Moles/Vol] 27 mmol/L Normal 22-30 [facility] Comment on above: Performed By: #### H EMDF, PT, CMP3 ####[facility] [place], [place] Glucose [Mass/Vol] 109 mg/dL High 70-100 [facility] Comment on above: Performed By: #### H EMDF, PT, CMP3 ####[facility] [place], [place] Protein [Mass/Vol] 8.1 g/dL Normal 6.3-8.2 [facility] Comment on above: Performed By: #### H EMDF, PT, CMP3 ####[place] [address] [place], [place] Urea nitrogen [Mass/Vol] 22 mg/dL High 7-17 [facility] Comment on above: Performed By: #### H EMDF, PT, CMP3 ####[facility] [place], [place] Creatinine [Mass/Vol] 0.63 mg/dL Normal 0.52-1.25 [facility] Comment on above: Performed By: #### H EMDF, PT, CMP3 ####[place] [address] [place] eGFR OTHER > 90.0 Normal >60 [facility] Comment on above: Result Comment: KDIG O [...] Performed By: #### H CHRISTEL MOTT CMP3 ####[address] GFR/1.73 sq M.predicted among blacks MDRD (S/P/Bld) [Vol rate/Area] mL/min/{1.73_m2} Normal >60 [facility] Comment on above: Performed By: #### H CHRISTEL MOTT CMP3 ####[address] Albumin [Mass/Vol] 4.1 g/dL Normal 3.5-5.0 [facility] Comment on above: Performed By: #### H CHRISTEL MOTT CMP3 ####[address] Chloride [Moles/Vol] 106 mmol/L Normal 98-107 [facility] Comment on above: Performed By: #### H CHRISTEL MOTT CMP3 ####[address] Potassium [Moles/Vol] 3.7 mmol/L Normal 3.5-5.1 [facility] Comment on above: Performed By: #### H CHRISTEL MOTT CMP3 ####[address] Sodium [Moles/Vol] 140 mmol/L Normal 135-145 [facility] Comment on above: Performed By: #### H CHRISTEL MOTT, CMP3 ####[address] Comprehensive Metabolic Pane kiel 03-02-2022 Albumin [...] P INF mL/min [facility] EGFR IF NonAfrican Kittitian mL/min 60 - PINF mL/min [facility] Comment [...] - 17 mg/dL [facility] Test Performed by [facility], [address] [place] [address] [facility] ED Provider Noteon 2 ED Provider Note [facility] EMERGENCY DEPT EMERGENCY DEPARTMENT ENCOUNTER Pt Name: Andrew Sifuentes Birthdate 1950 Date of evaluation: 03/02/2022 Provider: Lanette Munguia DO CHIEF COMPLAINT Chief Complaint Patient presents with Fall Patient had unwitnessed fall at [facility] landed on butt. Is on thinners, denies LOC, denies head injury has no complaints at this time HISTORY OF PRESENT ILLNESS (Location/Symptom, Timing/Onset, Context/Setting, Quality, Duration, Modifying Factors, Severity) Note limiting factors. I wore a N-95 mask for the entirety of this encounter. Andrew Sifuentes is a 71 y.o. male medical history of hydrocephalus status post [employer] shunt, history of DVT on Coumadin who presents to the emergency department from [facility] for evaluation following mechanical fall. Patient rolled out of bed. Unwitnessed. Found down on ground by nursing staff. Nonambulatory at baseline. Patient reports he did not hit his head. Has no acute complaints. Denies any pain or traumatic injury. Per nursing protocol at care home, sent to emergency department due to [...] Hemorrhoids Hydrocephalus, adult (HCC) Kidney stone Neuropathy [employer]ER (ventriculoperitoneal) shunt status SURGICAL HISTORY Past Surgical [...] CONTRAST R (more content not included)... Normal [facility] Hemogram w/ Autodiffon 03-02 Abs Baso Cnt 0.2 10*3/uL Normal 0.0-0.2 [facility] Comment on above: Performed By: #### H CHRISTEL MOTT CMP3 ####[facility] [place] [address] Abs Neutrophile Cnt 10.7 10*3/uL High 1.8-7.0 [facility] Comment on above: Performed By: #### H CHRISTEL MOTT CMP3 ####[facility] [place] [address] Basophils/100 WBC (Bld) 1.1 % Normal 0.0-2.0 [facility] Comment on above: Performed By: #### H CHRISTEL MOTT CMP3 ####[address] [place] [address] Eosinophils (Bld) [#/Vol] 0.1 10*3/uL Normal 0.0-0.5 [facility] Comment on above: Performed By: #### H EMDF, PT, CMP3 ####[address] [place] [address] Eosinophils/100 WBC (Bld) 0.5 % Low 1.0-6.0 [facility] Comment on above: Performed By: #### H EMDF, PT, CMP3 ####[address] [address] Granulocytes/100 WBC (Bld) 73.9 % Normal 40.0-80.0 [facility] Comment on above: Performed By: #### H EMDF, PT, CMP3 ####[address] [address] Lymphocytes (Bld) [#/Vol] 3.0 10*3/uL Normal 1.0-4.3 [facility] Comment on above: Performed By: #### H EMDF, PT, CMP3 ####[address] [address] Lymphocytes/100 WBC (Bld) 20.6 % Normal 20.0-40.0 [facility] Comment on above: Performed By: #### H EMDF, PT, CMP3 ####[address] [address] Monocytes (Bld) [#/Vol] 0.6 10*3/uL Normal 0.0-0.8 [facility] Comment on above: Performed By: #### H EMDF, PT, CMP3 ####[address] [address] Monocytes/100 WBC (Bld) 3.9 % Normal 2.0-10.0 [facility] Comment on above: Performed By: #### H EMDF, PT, CMP3 ####[facility] [employer] [address] [address] Platelet mean volume (Bld) [Entitic vol] 8.5 fL Normal 7.4-12.4 [facility] Comment on above: Result Comment: MPV is a calculated measurement using platelet volume ratio. Performed By: #### H EMDF, PT, CMP3 ####[address] [place] Platelets (Bld) [#/Vol] 411 10*3/uL Normal 140-440 [facility] Comment on above: Performed By: #### H EMDHeydi PT, CMP3 ####[address] Erythrocyte distribution width (RBC) [Ratio] 17.0 % High 11.5-14.5 [facility] Comment on above: Performed By: #### H EMDF, PT, CMP3 ####[address] Hematocrit (Bld) [Volume fraction] 37.4 % Low 40.0-52.0 [facility] Comment on above: Performed By: #### H EMDF PT, CMP3 ####[address] Hemoglobin (Bld) [Mass/Vol] 12.1 g/dL Low 13.0-18.0 [facility] Comment on above: Performed By: #### H EMDF, PT, CMP3 ####[address] MCH (RBC) [Entitic mass] 26.2 pg Normal 26.0-34.0 [facility] Comment on above: Performed By: #### H EMDF, PT, CMP3 ####[address] MCHC 32.3 % Normal 32.0-36.0 [facility] Comment on above: Performed By: #### H EMDF, PT, CMP3 ####[address] MCV (RBC) [Entitic vol] 81.1 fL Normal 80.0-98.0 [facility] Comment on above: Performed By: #### H EMDF, PT, CMP3 ####[address] RBC (Bld) [#/Vol] 4.61 10*6/uL Normal 4.40-5.90 [facility] Comment on above: Performed By: #### H EMDF, PT, CMP3 ####[address] [place] WBC (Bld) [#/Vol] 14.5 10*3/uL High 3.6-10.7 [facility] Comment on above: Performed By: #### H EMDF, PT, CMP3 ####[address] Prothrombin Timeon INR 1.9 High 0.9-1.1 [facility] Comment on above: Result Comment: Harry mmended [...] Performed By: #### H EMDF, PT, CMP3 ####[address] PT Coag (PPP) [Time] 18.9 s High 9.0-12.0 [facility] Comment on above: Result Comment: . Performed By: #### H EMDF, PT, CMP3 ####[address] Protime-INRon 03-02-2022 INR Coag (Bld) [Relative time] 1.9 {INR} High [facility] Comment on above: Recommended Anticoag ulant [...] Interpretation and review of laboratory results Abnormal [facility] PT Coag (PPP) [Time] 18.9 s High 9.0 - 12.[address] [facility] Comment on above: . Test Performed by [address] [address] [facility] Laboratory - CoagulationOrde red By: Carlos Cavazos on 02-20-2022 INR Coag (Bld) [Relative time] 2.6 {INR} [facility] Comment on above: Critical Value > 4.0 Whole blood prothrombin time Ordered By: Carlos Cavazos on 02-20-2022 PT Coag (Bld) [Time] 30.1 s 11.7-14.9 [facility] Laboratory - CoagulationOrde red By: Carlos Cavazos on 02-13-2022 INR Coag (Bld) [Relative time] 2.3 {INR} [facility] Comment on above: Critical Value > 4.0 Whole blood prothrombin time Ordered By: Carlos Cavazos on 02-13-2022 PT Coag (Bld) [Time] 26.7 s 11.7-14.9 [facility] Laboratory - CoagulationOrde red By: Carlos Cavazos on 02-06-2022 INR Coag (Bld) [Relative time] 2.3 {INR} [facility] Comment on above: Critical Value > 4.0 Whole blood prothrombin time Ordered By: Carlos Cavazos on 02-06-2022 PT Coag (Bld) [Time] 26.6 s 11.7-14.9 [facility] Laboratory - Coagulationon 0 01-30-2022 INR Coag (Bld) [Relative time] 1.7 {INR} [facility] Work Phone: Comment on above: Critical Value > 4.0 Whole blood prothrombin time on 01-30-2022 PT Coag (Bld) [Time] 20.1 s 11.7-14.9 [facility] Work Phone: Laboratory - Coagulationon 0 01-26-2022 INR Coag (Bld) [Relative time] 1.8 {INR} [facility] Work Phone: Comment on above: Critical Value > 4.0 Whole blood prothrombin time on 01-26-2022 PT Coag (Bld) [Time] 21.8 s 11.7-14.9 [facility] Work Phone: Laboratory - Coagulationon 0 01-19-2022 INR Coag (Bld) [Relative time] 2.2 {INR} [facility] Work Phone: Comment on above: Critical Value > 4.0 Whole blood prothrombin time on 01-19-2022 PT Coag (Bld) [Time] 25.7 s 11.7-14.9 [facility] Work Phone: INR in Blood by Coagulation assayon 01-10-2022 INR Coag (Bld) [Relative time] 1.8 {INR} [facility] Work Phone: Laboratory - Coagulationon 0 01-10-2022 PT Coag (PPP) [Time] 20.9 s 11.7-14.9 [facility] Work Phone: Basophil percentageon 2021 Chloride [Moles/Vol] 107 mmol/L 98-107 [facility] Work Phone: Glucose [Mass/Vol] 82 mg/dL 74-106 [facility] Work Phone: Potassium [Moles/Vol] 3.4 mmol/L 3.5-5.1 [facility] Work Phone: Sodium [Moles/Vol] 143 mmol/L 136-145 [facility] Work Phone: WBC (Bld) [#/Vol] 10.4 10*3/uL 4.4-11.0 [facility] Work Phone: Blood erythrocytes count (nu mber/volume)on 01-05-2022 RBC (Bld) [#/Vol] 4.27 10*6/uL 4.6-6.2 [facility] Work Phone: Blood hemoglobin measurement (mass/volume)on 01-05-2022 Hemoglobin (Bld) [Mass/Vol] 11.2 g/dL 13.0-16.5 [facility] Work Phone: Blood platelet mean volumeon 01-05-2022 Platelet mean volume (Bld) [Entitic vol] 10.3 fL 6.2-12.0 [facility] Work Phone: Determination of erythrocyte mean corpuscular volume (MCV)on 01-05-2022 MCV (RBC) [Entitic vol] 84.8 fL 80-94 [facility] Work Phone: Hematocrit Auto (Bld) [Volum e fraction]on 01-05-2022 Hematocrit (Bld) [Volume fraction] 36.2 % 40-54 [facility] Work Phone: Laboratory - Chemistry and C hemistry - challengeon 01-05-2022 CO2 [Moles/Vol] 28.0 mmol/L 21.0-32.0 [facility] Work Phone: Urea nitrogen/Creatinine [Mass ratio] 20.0 mg/mg 10-20 [facility] Work Phone: Laboratory - Hematology and Cell countson 01-05-2022 Erythrocyte distribution width (RBC) [Entitic vol] 51.8 fL 35.1-43.9 [facility] Work Phone: Erythrocyte distribution width (RBC) [Ratio] 16.8 % 11.6-14.6 [facility] Work Phone: MCH (RBC) [Entitic mass] 26.2 pg 27.0-32.0 [facility] Work Phone: MCHC Auto (RBC) [Mass/Vol]on 01-05-2022 MCHC (RBC) [Mass/Vol] 30.9 g/dL 32-36 [facility] Work Phone: No Panel Informationon 01-05 Estimated GFR (MDRD) Amer 133 mL/min >60 [facility] Work Phone: Comment on above: GFR Calc Estimated GFR (MDRD) Non-Af Amer 110 mL/min >60 [facility] Work Phone: Comment on above: Non- GFR Calc Platelets bldon 01-05-2022 Platelets (Bld) [#/Vol] 373 10*3/uL 150-450 [facility] Work Phone: Serum or plasma calcium oral urement (mass/volume)on 01-05-2022 Calcium [Mass/Vol] 8.8 mg/dL 8.5-10.1 [facility] Work Phone: Serum or plasma creatinine m easurement (mass/volume)on 01-05-2022 Creatinine [Mass/Vol] 0.75 mg/dL 0.70-1.30 [facility] Work Phone: Comment on above: The validity of the calculated GFR & GFRAA in patients over 70 years has not been determined. Clinical correlation is essential. Serum or plasma urea nitroge n measurement (mass/volume)on 01-05-2022 Urea nitrogen [Mass/Vol] 15 mg/dL 7-18 [facility] Work Phone: Thin prep Papanicolaou smear with manual screeningon 01-05-2022 Thin prep Papanicolaou smear with manual screening 8 5-15 [facility] Work Phone: Laboratory - Coagulationon 0 12-30-2021 INR Coag (Bld) [Relative time] 2.0 {INR} [facility] Work Phone: Comment on above: Critical Value > 4.0 Whole blood prothrombin time on 12-30-2021 PT Coag (Bld) [Time] 23.7 s 11.7-14.9 [facility] Work Phone: Basophil percentageon 2021 Chloride [Moles/Vol] 106 mmol/L 98-107 [facility] Work Phone: Glucose [Mass/Vol] 91 mg/dL 74-106 [facility] Work Phone: Potassium [Moles/Vol] 3.4 mmol/L 3.5-5.1 [facility] Work Phone: Sodium [Moles/Vol] 141 mmol/L 136-145 [facility] Work Phone: WBC (Bld) [#/Vol] 10.2 10*3/uL 4.4-11.0 [facility] Work Phone: Blood erythrocytes count (nu mber/volume)on 12-28-2021 RBC (Bld) [#/Vol] 4.22 10*6/uL 4.6-6.2 [facility] Work Phone: Blood hemoglobin measurement (mass/volume)on 12-28-2021 Hemoglobin (Bld) [Mass/Vol] 11.2 g/dL 13.0-16.5 [facility] Work Phone: Blood platelet mean volumeon 12-28-2021 Platelet mean volume (Bld) [Entitic vol] 10.1 fL 6.2-12.0 [facility] Work Phone: Determination of erythrocyte mean corpuscular volume (MCV)on 12-28-2021 MCV (RBC) [Entitic vol] 82.7 fL 80-94 [facility] Work Phone: Hematocrit Auto (Bld) [Volum e fraction]on 12-28-2021 Hematocrit (Bld) [Volume fraction] 34.9 % 40-54 [facility] Work Phone: Laboratory - Chemistry and C hemistry - challengeon 12-28-2021 CO2 [Moles/Vol] 30.0 mmol/L 21.0-32.0 [facility] Work Phone: Urea nitrogen/Creatinine [Mass ratio] 33.7 mg/mg 10-20 [facility] Work Phone: Laboratory - Hematology and Cell countson 12-28-2021 Erythrocyte distribution width (RBC) [Entitic vol] 49.1 fL 35.1-43.9 [facility] Work Phone: Erythrocyte distribution width (RBC) [Ratio] 16.5 % 11.6-14.6 [facility] Work Phone: MCH (RBC) [Entitic mass] 26.5 pg 27.0-32.0 [facility] Work Phone: MCHC Auto (RBC) [Mass/Vol]on 12-28-2021 MCHC (RBC) [Mass/Vol] 32.1 g/dL 32-36 [facility] Work Phone: No Panel Informationon 12-28 Estimated GFR (MDRD) Amer 174 mL/min >60 [facility] Work Phone: Comment on above: GFR Calc Estimated GFR (MDRD) Non-Af Amer 143 mL/min >60 [facility] Work Phone: Comment on above: Non- GFR Calc Platelets bldon 12-28-2021 Platelets (Bld) [#/Vol] 339 10*3/uL 150-450 [facility] Work Phone: Serum or plasma calcium oral urement (mass/volume)on 12-28-2021 Calcium [Mass/Vol] 8.6 mg/dL 8.5-10.1 [facility] Work Phone: Serum or plasma creatinine m easurement (mass/volume)on 12-28-2021 Creatinine [Mass/Vol] 0.59 mg/dL 0.70-1.30 [facility] Work Phone: Comment on above: The validity of the calculated GFR & GFRAA in patients over 70 years has not been determined. Clinical correlation is essential. Serum or plasma urea nitroge n measurement (mass/volume)on 12-28-2021 Urea nitrogen [Mass/Vol] 20 mg/dL 7-18 [facility] Work Phone: Thin prep Papanicolaou smear with manual screeningon 12-28-2021 Thin prep Papanicolaou smear with manual screening 5 5-15 [facility] Work Phone: CULTURE BLOODon 12-27-2021 Microscopic examination of blood, culture CULTURE BLOOD --> Status: F No growth at 5 days. Normal [facility] Comment on above: Performed By: #### C /BLD #### [employer] [address] [facility] [place] [address] Laboratory - Coagulationon 0 12-26-2021 INR Coag (Bld) [Relative time] 1.7 {INR} [facility] Work Phone: Comment on above: Critical Value > 4.0 Whole blood prothrombin time on 12-26-2021 PT Coag (Bld) [Time] 20.8 s 11.7-14.9 [facility] Work Phone: Basic Metabolic Panelon 12-05 Calcium [Mass/Vol] 8.8 mg/dL Normal 8.4-10.4 [facility] Comment on above: Performed By: #### C RP2, ESR, HEMDF, BMP3 ####[employer] [place] [address] Anion gap [Moles/Vol] 6 mmol/L Normal 3-13 [facility] Comment on above: Performed By: #### C RP2, ESR, HEMDF, BMP3 ####[employer] [place] [address] CO2 [Moles/Vol] 27 mmol/L Normal 22-30 [facility] Comment on above: Performed By: #### C RP2, ESR, HEMDF, BMP3 ####[employer] [id number] [place] [address] Glucose [Mass/Vol] 100 mg/dL Normal 70-100 [facility] Comment on above: Performed By: #### C RP2, ESR, HEMDF, BMP3 ####[employer] [place] [address] Urea nitrogen [Mass/Vol] 18 mg/dL High 7-17 [facility] Comment on above: Performed By: #### C RP2, ESR, HEMDF, BMP3 ####[employer] [place] [address] Creatinine [Mass/Vol] 0.73 mg/dL Normal 0.52-1.25 [facility] Comment on above: Performed By: #### C RP2, ESR, HEMDF, BMP3 ####[address] [place] eGFR OTHER > 90.0 Normal >60 [facility] Comment on above: Result Comment: KDIG O [...] By: #### C RP2, ESR, HEMDF, BMP3 ####[address] [place] GFR/1.73 sq M.predicted among blacks MDRD (S/P/Bld) [Vol rate/Area] mL/min/{1.73_m2} Normal >60 [facility] Comment on above: Performed By: #### C RP2, ESR, HEMDF, BMP3 ####[address] [place] Potassium [Moles/Vol] 3.7 mmol/L Normal 3.5-5.1 [facility] Comment on above: Performed By: #### C RP2, ESR, HEMDF, BMP3 ####[facility] [employer] [id number] [place] Chloride [Moles/Vol] 106 mmol/L Normal 98-107 [facility] Comment on above: Performed By: #### C RP2, ESR, HEMDF, BMP3 ####[facility] [employer] [id number] [place] Sodium [Moles/Vol] 139 mmol/L Normal 135-145 [facility] Comment on above: Performed By: #### C RP2, ESR, HEMDF, BMP3 ####[employer] [id number] [place] [address] Anion gap [Moles/Vol] 6 mmol/L 3 - 13 mmol/L [facility] Calcium [Mass/Vol] 8.8 mg/dL 8.4 - 10. 4 mg/dL [facility] Chloride [Moles/Vol] 106 mmol/L 98 - 10 7 mmol/L [facility] CO2 [Moles/Vol] 27 mmol/L 22 - 30 mmol/L [facility] Creatinine [Mass/Vol] 0.73 mg/dL 0.52 - 1.25 mg/dL [facility] eGFR mL/min 60 - P INF mL/min [facility] EGFR IF NonAfrican Kittitian mL/min 60 - PINF mL/min [facility] Comment [...] 2021 Basophil percentage 25-50 SEEN /hpf 0-5 [facility] Work Phone: Chloride [Moles/Vol] 106 mmol/L 98-[address] [facility] Work Phone: Glucose [Mass/Vol] 93 mg/dL 74-106 [place] [facility] Work Phone: Potassium [Moles/Vol] 3.5 mmol/L 3.5-5.1 [employer] [facility] Work Phone: Sodium [Moles/Vol] 140 mmol/L 136-145 [facility] Work Phone: WBC (Bld) [#/Vol] 9.6 10*3/uL 4.4-11.0 [facility] Work Phone: Bilirubin Test strip Ql (U)o n 12-22-2021 Bilirubin Ql (U) Negative Negative [facility] Work Phone: Blood erythrocytes count (nu mber/volume)on 12-22-2021 RBC (Bld) [#/Vol] 4.34 10*6/uL 4.6-6.2 [place] [facility] Work Phone: Blood hemoglobin measurement (mass/volume)on 12-22-2021 Hemoglobin (Bld) [Mass/Vol] 11.5 g/dL 13.0-16.5 [facility] Work Phone: Blood platelet mean volumeon 12-22-2021 Platelet mean volume (Bld) [Entitic vol] 10.8 fL 6.2-12.0 [facility] Work Phone: C-Reactive Proteinon 022 CRP [Mass/Vol] 27.2 mg/L High 0.0-9.9 [facility] [employer] Comment on above: Result Comment: . Performed By: #### C RP2, ESR, HEMDF, BMP3 ####[employer] [id number] [place] [address] CRP [Mass/Vol] 27.2 mg/L High 0 - 9.9 mg/L [facility] Comment on above: . CBC with [...] - 10.7 10*3/uL [facility] Test Performed by [facility], [address] [place] [address] [facility], Flu A/B, and RSV C omboon 12-22-2021 Influenza A by PCR Not detected [facility] Influenza B by PCR Not detected [facility] A RSV PCR Not Detected. Expected Result: Not Detected _ Method: Real-time, RT-PCR This assay was developed by [employer] and distributed under an Emergency Use Authorization (EUA) granted by the FDA for the qualitative detection of nucleic acids from SARS-CoV-2, Influenza A, Influenza B, and Respiratory Syncytial Virus. Provider and patient fact sheets can be found at https://www.fda.gov/media /515489/download and https://www.fda.gov/media /503284/download. [facility] SARS-CoV-2 (COVID-19) RNA MEGAN+probe Ql (Unsp spec) Not detected [facility] Test Performed by [facility], [address] [place] [address] [facility] Foot Complete 3+ Views [place] 12-22-2021 CR Foot Complete 3+ Views Left Patient Name: ANDREW SIFUENTES Diagnostic Radiology ACCESSION EXAM DATE/TIME PROCEDURE ORDERING PROVIDER [id number] 12/22/2021 00:09 EDT CR Foot Complete 3+ SANDY HIDALGO JOHN M Views Left CPT code 88763 Reason For Exam (CR Foot Complete 3+ [...] Transcribed Date and Time: 12/22/2021 0:21 Normal [facility] Calcium oxalate crystals det ection in urine sediment by light microscopyon 12-22-2021 Calcium oxalate crystals LM Ql (Urine sed) 1+ /hpf [facility] Work Phone: Determination of erythrocyte mean corpuscular volume (MCV)on 12-22-2021 MCV (RBC) [Entitic vol] 84.3 fL 80-94 [facility] Work Phone: ED Provider Noteon [...] leg for a while. According to EMS care home staff completed x-ray of the lower extremity and there was concern for osteomyelitis hence transferring patient to the hospital. Patient states this time the wounds on the left lower extremity for extended period of time. He denies fevers or chills. Patient states care home staff have been taking care of the wound for him. Focused exam: Blood pressure 108/67, pulse 77, temperature 97.9 ?F (36.6 ?C), temperature source Oral, resp. rate 16, height 5' 9 (1.753 m), weight 79.4 kg (175 lb), SpO2 96 %. [id number] in no acute distress. Alert and oriented [...] are mis-transcribed.) Sharon Gonzalez MD Acute Care [facility] Sharon Gonzalez MD 12/22/21 0305 [facility] ED Provider Note [facility] EMERGENCY DEPT EMERGENCY DEPARTMENT ENCOUNTER Pt Name: Andrew Sifuentes Birthdate 1950 Date of evaluation: 12/21/2021 Provider: SANIA Lou CHIEF COMPLAINT Chief Complaint Patient presents with Osteomyelitis Patient from [facility], facility did xrays on left lower leg and and have concerns for possible osteomyelitis A&Ox2 to self and place, stated year [address]ini HISTORY OF PRESENT ILLNESS (Location/Symptom, Timing/Onset, Context/Setting, Quality,Duration, Modifying Factors, Severity) Note limiting factors. HPI I have seen this patient With supervising physician Does this patient come from an ECF, SNF, Rehab, Long-Term or other Congregate setting: no (If yes [...] Hemorrhoids Hydrocephalus, adult (HCC) Kidney stone Neuropathy [employer] (ventriculoperitoneal) shunt status SURGICAL HISTORY Past Surgical [...] use: No Sexual activity: Not Currently SCREENINGS Orlando Coma Scale Eye Opening: Spontaneous Best Verbal Response: Confused Best Motor Response: Obeys commands Orlando Coma Scale Score: 14 Patient symptoms are [...] soft. Tenderness: (more content not included)... Normal [facility] Hematocrit Auto (Bld) [Volum e fraction]on 12-22-2021 Hematocrit (Bld) [Volume fraction] 36.6 % 40-54 [facility] Work Phone: Hemogram w/ Autodiffon 12-22 Abs Baso Cnt 0.1 10*3/uL Normal 0.0-0.2 [facility] Comment on above: Performed By: #### C RP2, ESR, HEMDF, BMP3 ####[facility] [id number] [place] [address] Abs Neutrophile Cnt 5.9 10*3/uL Normal 1.8-7.0 [facility] [employer] Comment on above: Performed By: #### C RP2, ESR, HEMDF, BMP3 ####[address] Basophils/100 WBC (Bld) 0.7 % Normal 0.0-2.0 [facility] Comment on above: Performed By: #### C RP2, ESR, HEMDF, BMP3 ####[id number] [place], [place] Eosinophils (Bld) [#/Vol] 0.2 10*3/uL Normal 0.0-0.5 [facility] Comment on above: Performed By: #### C RP2, ESR, HEMDF, BMP3 ####[address] Eosinophils/100 WBC (Bld) 2.3 % Normal 1.0-6.0 [facility] Comment on above: Performed By: #### C RP2, ESR, HEMDF, BMP3 ####[address] [place], [place] Erythrocyte distribution width (RBC) [Ratio] 17.5 % High 11.5-14.5 [facility] Comment on above: Performed By: #### C RP2, ESR, HEMDF, BMP3 ####[address] Granulocytes/100 WBC (Bld) 57.8 % Normal 40.0-80.0 [facility] Comment on above: Performed By: #### C RP2, ESR, HEMDF, BMP3 ####[address] Hematocrit (Bld) [Volume fraction] 33.3 % Low 40.0-52.0 [facility] Comment on above: Performed By: #### C RP2, ESR, HEMDF, BMP3 ####[address] [place], [place] Hemoglobin (Bld) [Mass/Vol] 11.0 g/dL Low 13.0-18.0 [facility] Comment on above: Performed By: #### C RP2, ESR, HEMDF, BMP3 ####[address] Lymphocytes (Bld) [#/Vol] 3.3 10*3/uL Normal 1.0-4.3 [facility] Comment on above: Performed By: #### C RP2, ESR, HEMDF, BMP3 ####[id number] [place] Lymphocytes/100 WBC (Bld) 33.0 % Normal 20.0-40.0 [facility] Comment on above: Performed By: #### C RP2, ESR, HEMDF, BMP3 ####[address] MCH (RBC) [Entitic mass] 26.5 pg Normal 26.0-34.0 [facility] Comment on above: Performed By: #### C RP2, ESR, HEMDF, BMP3 ####[address] MCHC 33.1 % Normal 32.0-36.0 [facility] Comment on above: Performed By: #### C RP2, ESR, HEMDF, BMP3 ####[id number] [place] MCV (RBC) [Entitic vol] 80.2 fL Normal 80.0-98.0 [facility] Comment on above: Performed By: #### C RP2, ESR, HEMDF, BMP3 ####[address] Monocytes (Bld) [#/Vol] 0.6 10*3/uL Normal 0.0-0.8 [facility] Comment on above: Performed By: #### C RP2, ESR, HEMDF, BMP3 ####[address] [place] Monocytes/100 WBC (Bld) 6.2 % Normal 2.0-10.0 [facility] Comment on above: Performed By: #### C RP2, ESR, HEMDF, BMP3 ####[address] Platelet mean volume (Bld) [Entitic vol] 8.0 fL Normal 7.4-12.4 [facility] Comment on above: Result Comment: MPV is a calculated measurement using platelet volume ratio. Performed By: #### C RP2, ESR, HEMDF, BMP3 ####[facility] [id number] [place], [place] Platelets (Bld) [#/Vol] 368 10*3/uL Normal 140-440 [facility] Comment on above: Performed By: #### C RP2, ESR, HEMDF, BMP3 ####[address] [place] RBC (Bld) [#/Vol] 4.15 10*6/uL Low 4.40-5.90 [facility] Comment on above: Performed By: #### C RP2, ESR, HEMDF, BMP3 ####[facility] [id number] [place] WBC (Bld) [#/Vol] 10.1 10*3/uL Normal 3.6-10.7 [facility] Comment on above: Performed By: #### C RP2, ESR, HEMDF, BMP3 ####[facility] [id number] [place], [place] Ketones Test strip Ql (U)on 12-22-2021 Ketones Ql (U) Negative Negative [facility] Work Phone: Laboratory - Chemistry and C hemistry - challengeon 12-22-2021 CO2 [Moles/Vol] 27.0 mmol/L 21.0-32.0 [facility] Work Phone: Urea nitrogen/Creatinine [Mass ratio] 22.5 mg/mg 10-20 [facility] Work Phone: Laboratory - Hematology and Cell countson 12-22-2021 Erythrocyte distribution width (RBC) [Entitic vol] 49.1 fL 35.1-43.9 [facility] Work Phone: Erythrocyte distribution width (RBC) [Ratio] 16.1 % 11.6-14.6 [facility] Work Phone: MCH (RBC) [Entitic mass] 26.5 pg 27.0-32.0 [facility] Work Phone: MCHC Auto (RBC) [Mass/Vol]on 12-22-2021 MCHC (RBC) [Mass/Vol] 31.4 g/dL 32-36 [facility] Work Phone: Mucus LM Ql (Urine sed)on Mucus Ql (Urine sed) 0 SEEN /hpf [facility] Work Phone: Nitrite Test strip Ql (U)on 12-22-2021 Nitrite Ql (U) Positive Negative [facility] Work Phone: No Panel Informationon 12-22 Estimated GFR (MDRD) Amer 152 mL/min >60 [facility] Work Phone: Comment on above: GFR Calc Estimated GFR (MDRD) Non-Af Amer 125 mL/min >60 [facility] Work Phone: Comment on above: Non- GFR Calc Interpretation and review of laboratory results Abnormal [facility] Test Performed by [address] [address] [facility] Platelets bldon 12-22-2021 Platelets (Bld) [#/Vol] 317 10*3/uL 150-450 [facility] Work Phone: Protein Test strip Ql (U)on 12-22-2021 Protein Ql (U) 30 mg/dl Negative [facility] Work Phone: SARS-CoV-2, Flu A/B and RSVo n 12-22-2021 SARS-CoV-2 (COVID-19) RNA MEGAN+probe Ql (Unsp spec) SARS-CoV-2 --> Status: F Not Detected. Flu A PCR --> Status: F Not Detected. Flu B PCR --> Status: F Not Detected. RSV PCR --> Status: F Not Detected. Expected Result: Not Detected _ Method: Real-time, RT-PCR This assay was developed by [employer] and distributed under an Emergency Use Authorization (EUA) granted by the FDA for the qualitative detection of nucleic acids from SARS-CoV-2, Influenza A, Influenza B, and Respiratory Syncytial Virus. Provider and patient fact sheets can be found at https://www.fda.gov/media /517633/download and https://www.fda.gov/media /368328/download. Expected Result: Not Detected _ Method: Real-time, RT-PCR This assay was developed by [employer] and distributed under an Emergency Use Authorization (EUA) granted by the FDA for the qualitative detection of nucleic acids from SARS-CoV-2, Influenza A, Influenza B, and Respiratory Syncytial Virus. Provider and patient fact sheets can be found at https://www.fda.gov/media /616679/download and https://www.fda.gov/media /727628/download. Normal [facility] Comment on above: Performed By: #### C VFLR ####[address] [place] [address], [address] Sed Rateon 12-22-2021 Sed Rate 48 mm/h High 0-10 [facility] Comment on above: Performed By: #### C RP2, ESR, HEMDF, BMP3 ####[address] [place] [address] Sedimentation Rateon 022 Interpretation and review of laboratory results Abnormal [facility] Sed Rate 48 mm/h High 0 - 10 mm/h [facility] Test Performed by [facility], [address] [place] [address] [facility] Serum or plasma calcium oral urement (mass/volume)on 12-22-2021 Calcium [Mass/Vol] 8.6 mg/dL 8.5-10.1 [facility] Work Phone: Serum or plasma creatinine m easurement (mass/volume)on 12-22-2021 Creatinine [Mass/Vol] 0.67 mg/dL 0.70-1.30 [address] [facility] Work Phone: Comment on above: The validity of the calculated GFR & GFRAA in patients over 70 years has not been determined. Clinical correlation is essential. Serum or plasma urea nitroge n measurement (mass/volume)on 12-22-2021 Urea nitrogen [Mass/Vol] 15 mg/dL - [facility] Work Phone: Squamous epithelial cells de tection in urine sediment by light microscopyon 12-22-2021 Epithelial cells.squamous LM Ql (Urine sed) 0-5 SEEN /hpf 0-5 [facility] Work Phone: Thin prep Papanicolaou smear with manual screeningon 12-22-2021 Thin prep Papanicolaou smear with manual screening 7 5-15 [facility] Work Phone: Urine blood detectionon 12-05 RBC Ql (U) 150 /ul Negative [facility] Work Phone: RBC Ql (U) 10-25 SEEN /hpf 0-5 [facility] Work Phone: Urine clarityon 12-22-2021 Clarity (U) Sl. Cloudy Clear [facility] Work Phone: Urine color determinationon 12-22-2021 Color (U) Yellow Yellow [facility] Work Phone: Urine glucose detectionon Glucose Ql (U) Normal mg/dl Normal [facility] Work Phone: Urine leukocyte esterase det ection by dipstickon 12-22-2021 Leukocyte esterase Test strip Ql (U) 500 /ul Negative [facility] Work Phone: Urine pHon 12-22-2021 pH (U) 6.0 [pH] 5.0 - 8.0 [facility] Work Phone: Urine sediment bacteria coun t by microscopy (number/high power field)on 12-22-2021 Bacteria LM.HPF (Urine sed) [#/Area] 2 /[HPF] None Seen [facility] Work Phone: Urine specific gravity measu rementon 12-22-2021 Specific gravity (U) [Rel density] 1.020 1.002-1.030 [facility] Work Phone: Urobilinogen Auto test strip Ql (U)on 12-22-2021 Urobilinogen Ql (U) Normal mg/dl Normal [facility] Work Phone: XR FOOT LEFT (MIN 3 VIEWS)on 12-22-2021 Patient Name: ANDREW SIFUENTES Diagnostic Radiology ACCESSION EXAM DATE/TIME PROCEDURE ORDERING PROVIDER [id number] 12/22/2021 00:09 EDT CR Foot Complete 3+ SANDY HIDALGO JOHN M Views Left CPT code 62460 Reason For Exam (CR Foot Complete 3+ [...] JEFFREY Transcribed Date and Time: 12/22/2021 0:21 [facility] Albert Solano MD - 12/22/2021 Patient Name: ANDREW SIFUENTES Diagnostic Radiology ACCESSION EXAM DATE/TIME PROCEDURE ORDERING PROVIDER [id number] 12/22/2021 00:09 EDT CR Foot Complete 3+ SANDY HIDALGO JOHN M Views Left CPT code 17225 Reason For Exam (CR Foot Complete 3+ [...] JEFFREY Transcribed Date and Time: 12/22/2021 0:21 [facility] Work [facility]: Radiology Study observation (narrative) [facility] Work Phone: XR FOOT LEFT (MIN 3 VIEWS)Or dered By: Albert Solano on 12-22-[address] [facility] Work Phone: Basophil percentageon 2021 Chloride [Moles/Vol] 103 mmol/L 98-[address] [facility] Work Phone: Glucose [Mass/Vol] 92 mg/dL 74-106 [place] [facility] Work Phone: Potassium [Moles/Vol] 3.5 mmol/L 3.5-5.1 [facility] [facility] Work Phone: Sodium [Moles/Vol] 138 mmol/L 136-145 [place] [facility] Work Phone: WBC (Bld) [#/Vol] 11.2 10*3/uL 4.4-11.0 [place] [facility] Work Phone: Blood erythrocytes count (nu mber/volume)on 12-19-2021 RBC (Bld) [#/Vol] 4.50 10*6/uL 4.6-6.2 [facility] Work Phone: Blood hemoglobin measurement (mass/volume)on 12-19-2021 Hemoglobin (Bld) [Mass/Vol] 12.2 g/dL 13.0-16.5 [facility] Work Phone: Blood platelet mean volumeon 12-19-2021 Platelet mean volume (Bld) [Entitic vol] 11.3 fL 6.2-12.0 [facility] Work Phone: Determination of erythrocyte mean corpuscular volume (MCV)on 12-19-2021 MCV (RBC) [Entitic vol] 85.6 fL 80-94 [facility] Work Phone: Hematocrit Auto (Bld) [Volum e fraction]on 12-19-2021 Hematocrit (Bld) [Volume fraction] 38.5 % 40-54 [facility] Work Phone: Laboratory - Chemistry and C hemistry - challengeon 12-19-2021 CO2 [Moles/Vol] 30.0 mmol/L 21.0-32.0 [facility] Work Phone: Urea nitrogen/Creatinine [Mass ratio] 27.1 mg/mg 10-20 [facility] Work Phone: Laboratory - Hematology and Cell countson 12-19-2021 Erythrocyte distribution width (RBC) [Entitic vol] 50.5 fL 35.1-43.9 [facility] Work Phone: Erythrocyte distribution width (RBC) [Ratio] 16.0 % 11.6-14.6 [facility] Work Phone: MCH (RBC) [Entitic mass] 27.1 pg 27.0-32.0 [facility] Work Phone: MCHC Auto (RBC) [Mass/Vol]on 12-19-2021 MCHC (RBC) [Mass/Vol] 31.7 g/dL 32-36 [facility] Work Phone: No Panel Informationon 12-19 Estimated GFR (MDRD) Amer 153 mL/min >60 [facility] Work Phone: Comment on above: GFR Calc Estimated GFR (MDRD) Non-Af Amer 126 mL/min >60 [facility] Work Phone: Comment on above: Non- GFR Calc Platelets bldon 12-19-2021 Platelets (Bld) [#/Vol] 363 10*3/uL 150-450 [facility] Work Phone: Serum or plasma calcium oral urement (mass/volume)on 12-19-2021 Calcium [Mass/Vol] 9.5 mg/dL 8.5-10.1 [facility] Work Phone: Serum or plasma creatinine m easurement (mass/volume)on 12-19-2021 Creatinine [Mass/Vol] 0.66 mg/dL 0.70-1.30 [facility] Work Phone: Comment on above: The validity of the calculated GFR & GFRAA in patients over 70 years has not been determined. Clinical correlation is essential. Serum or plasma urea nitroge n measurement (mass/volume)on 12-19-2021 Urea nitrogen [Mass/Vol] 18 mg/dL 7-18 [facility] Work Phone: Thin prep Papanicolaou smear with manual screeningon 12-19-2021 Thin prep Papanicolaou smear with manual screening 5 5-15 [facility] Work Phone: Laboratory - Coagulationon 0 12-12-2021 INR Coag (Bld) [Relative time] 2.0 {INR} [facility] Work Phone: Comment on above: Critical Value > 4.0 Whole blood prothrombin time on 12-12-2021 PT Coag (Bld) [Time] 23.9 s 11.7-14.9 [facility] Work Phone: ANES POSTPROC EVALon 022 ANES POSTPROC EVAL Normal [facility] Laboratory - Coagulationon 0 12-08-2021 INR Coag (Bld) [Relative time] 1.8 {INR} [facility] Work Phone: Comment on above: Critical Value > 4.0 Whole blood prothrombin time on 12-08-2021 PT Coag (Bld) [Time] 21.0 s 11.7-14.9 [facility] Work Phone: Absolute lymphocyte counton 12-05-2021 Lymphocytes Auto (Unsp spec) [#/Vol] 2.97 10*3/uL 0.83-4.51 [facility] Work Phone: [phone] Basophil percentageon 2021 Basophils/100 WBC (Bld) 0.6 % 0-1 [facility] Work Phone: Chloride [Moles/Vol] 106 mmol/L 98-107 [facility] Work Phone: Eosinophils/100 WBC (Bld) 2.3 % 0-5 [facility] Work Phone: Glucose [Mass/Vol] 107 mg/dL 74-106 [facility] Work Phone: Comment on above: Fasting Glucose resu lt from 100 to 125 mg/dL suggests IMPAIRED HOMEOSTASIS per A.D.A. criteria. Neutrophils (Bld) [#/Vol] 5.6 10*3/uL 2.0-7.7 [facility] Work Phone: Neutrophils/100 WBC (Bld) 60.2 % 47-70 [facility] Work Phone: [phone] Potassium [Moles/Vol] 3.4 mmol/L 3.5-5.1 [facility] Work Phone: Sodium [Moles/Vol] 139 mmol/L 136-145 [facility] Work Phone: WBC (Bld) [#/Vol] 9.3 10*3/uL 4.4-11.0 [facility] Work Phone: Blood erythrocytes count (nu mber/volume)on 08-01-2022 RBC (Bld) [#/Vol] 4.49 10*6/uL 4.6-6.2 [facility] Work Phone: Blood hemoglobin measurement (mass/volume)on 12-05-2021 Hemoglobin (Bld) [Mass/Vol] 12.1 g/dL 13.0-16.5 [facility] Work Phone: Blood lymphocytes/100 leukoc yteson 12-05-2021 Lymphocytes/100 WBC (Bld) 32.0 % 19-41 [facility] Work Phone: Blood monocytes/100 leukocyt eson 12-05-2021 Monocytes/100 WBC (Bld) 4.7 % 0-10 [facility] Work Phone: Blood platelet mean volumeon 12-05-2021 Platelet mean volume (Bld) [Entitic vol] 10.8 fL 6.2-12.0 [facility] Work Phone: Determination of erythrocyte mean corpuscular volume (MCV)on 12-05-2021 MCV (RBC) [Entitic vol] 84.9 fL 80-94 [facility] Work Phone: Hematocrit Auto (Bld) [Volum e fraction]on 12-05-2021 Hematocrit (Bld) [Volume fraction] 38.1 % 40-54 [facility] Work Phone: INR in Blood by Coagulation assayon 12-05-2021 INR Coag (Bld) [Relative time] 1.8 {INR} [facility] Work Phone: Laboratory - Chemistry and C hemistry - challengeon 12-05-2021 CO2 [Moles/Vol] 29.0 mmol/L 21.0-32.0 [facility] Work Phone: Urea nitrogen/Creatinine [Mass ratio] 25.4 mg/mg 10-20 [facility] Work Phone: Laboratory - Coagulationon 0 12-05-2021 PT Coag (PPP) [Time] 20.5 s 11.7-14.9 [facility] Work Phone: Laboratory - Hematology and Cell countson 12-05-2021 Erythrocyte distribution width (RBC) [Entitic vol] 48.5 fL 35.1-43.9 [facility] Work Phone: Erythrocyte distribution width (RBC) [Ratio] 15.7 % 11.6-14.6 [facility] Work Phone: Immature granulocytes/100 WBC (Bld) 0.200 % 0.0-0.9 [facility] Work Phone: Comment on above: IG% - Immature Granu locytes (promyelocytes, myelocytes and metamyelocytes) > 1% indicates that a LEFT SHIFT is Present. MCH (RBC) [Entitic mass] 26.9 pg 27.0-32.0 [facility] Work Phone: Nucleated RBC/100 WBC (Bld) [Ratio] 0 % 0-5 [facility] Work Phone: MCHC Auto (RBC) [Mass/Vol]on 12-05-2021 MCHC (RBC) [Mass/Vol] 31.8 g/dL 32-36 [facility] Work Phone: No Panel Informationon 12-05 Estimated GFR (MDRD) Amer 133 mL/min >60 [facility] Work Phone: Comment on above: GFR Calc Estimated GFR (MDRD) Non-Af Amer 110 mL/min >60 [facility] Work Phone: Comment on above: Non- GFR Calc Platelets bldon 12-05-2021 Platelets (Bld) [#/Vol] 363 10*3/uL 150-450 [facility] Work Phone: Serum or plasma calcium oral urement (mass/volume)on 12-05-2021 Calcium [Mass/Vol] 9.4 mg/dL 8.5-10.1 [facility] Work Phone: Serum or plasma creatinine m easurement (mass/volume)on 12-05-2021 Creatinine [Mass/Vol] 0.75 mg/dL 0.70-1.30 [facility] Work Phone: Comment on above: The validity of the calculated GFR & GFRAA in patients over 70 years has not been determined. Clinical correlation is essential. Serum or plasma urea nitroge n measurement (mass/volume)on 12-05-2021 Urea nitrogen [Mass/Vol] 19 mg/dL 7-18 [facility] Work Phone: Thin prep Papanicolaou smear with manual screeningon 12-05-2021 Thin prep Papanicolaou smear with manual screening 4 5-15 [facility] Work Phone: Basophil percentageon 2021 Basophil percentage 0 SEEN /hpf 0-5 [facility] Work Phone: Chloride [Moles/Vol] 104 mmol/L 98-107 [facility] Work Phone: Glucose [Mass/Vol] 90 mg/dL 74-106 [facility] Work Phone: Potassium [Moles/Vol] 3.7 mmol/L 3.5-5.1 [facility] Work Phone: Comment on above: Slight Hemolysis, Re sult may be falsely increased. Sodium [Moles/Vol] 138 mmol/L 136-145 [facility] Work Phone: WBC (Bld) [#/Vol] 10.7 10*3/uL 4.4-11.0 [facility] Work Phone: Bilirubin Test strip Ql (U)o n 12-01-2021 Bilirubin Ql (U) Negative Negative [facility] Work Phone: Blood erythrocytes count (nu mber/volume)on 12-01-2021 RBC (Bld) [#/Vol] 4.33 10*6/uL 4.6-6.2 [facility] Work Phone: Blood hemoglobin measurement (mass/volume)on 12-01-2021 Hemoglobin (Bld) [Mass/Vol] 11.6 g/dL 13.0-16.5 [facility] Work Phone: Blood platelet mean volumeon 12-01-2021 Platelet mean volume (Bld) [Entitic vol] 11.2 fL 6.2-12.0 [facility] Work Phone: Determination of erythrocyte mean corpuscular volume (MCV)on 12-01-2021 MCV (RBC) [Entitic vol] 85.2 fL 80-94 [facility] Work Phone: Hematocrit Auto (Bld) [Volum e fraction]on 12-01-2021 Hematocrit (Bld) [Volume fraction] 36.9 % 40-54 [facility] Work Phone: Ketones Test strip Ql (U)on 12-01-2021 Ketones Ql (U) Negative Negative [facility] Work Phone: Laboratory - Chemistry and C hemistry - challengeon 12-01-2021 CO2 [Moles/Vol] 27.0 mmol/L 21.0-32.0 [facility] Work Phone: Urea nitrogen/Creatinine [Mass ratio] 24.0 mg/mg 10-20 [facility] Work Phone: Laboratory - Coagulationon 0 12-01-2021 INR Coag (Bld) [Relative time] 1.6 {INR} [facility] Work Phone: Comment on above: Critical Value > 4.0 Laboratory - Hematology and Cell countson 12-01-2021 Erythrocyte distribution width (RBC) [Entitic vol] 47.9 fL 35.1-43.9 [facility] Work Phone: Erythrocyte distribution width (RBC) [Ratio] 15.5 % 11.6-14.6 [facility] Work Phone: MCH (RBC) [Entitic mass] 26.8 pg 27.0-32.0 [facility] Work Phone: MCHC Auto (RBC) [Mass/Vol]on 12-01-2021 MCHC (RBC) [Mass/Vol] 31.4 g/dL 32-36 [facility] Work Phone: Mucus LM Ql (Urine sed)on Mucus Ql (Urine sed) 0 SEEN /hpf [facility] Work Phone: Nitrite Test strip Ql (U)on 12-01-2021 Nitrite Ql (U) Negative Negative [facility] Work Phone: No Panel Informationon 12-01 Estimated GFR (MDRD) Amer 133 mL/min >60 [facility] Work Phone: Comment on above: GFR Calc Estimated GFR (MDRD) Non-Af Amer 110 mL/min >60 [facility] Work Phone: Comment on above: Non- GFR Calc Platelets bldon 12-01-2021 Platelets (Bld) [#/Vol] 336 10*3/uL 150-450 [facility] Work Phone: Protein Test strip Ql (U)on 12-01-2021 Protein Ql (U) 30 mg/dl Negative [facility] Work Phone: Serum or plasma calcium oral urement (mass/volume)on 12-01-2021 Calcium [Mass/Vol] 9.4 mg/dL 8.5-10.1 [facility] Work Phone: Serum or plasma creatinine m easurement (mass/volume)on 12-01-2021 Creatinine [Mass/Vol] 0.75 mg/dL 0.70-1.30 [facility] Work Phone: Comment on above: The validity of the calculated GFR & GFRAA in patients over 70 years has not been determined. Clinical correlation is essential. Serum or plasma urea nitroge n measurement (mass/volume)on 12-01-2021 Urea nitrogen [Mass/Vol] 18 mg/dL 7-18 [facility] Work Phone: Squamous epithelial cells de tection in urine sediment by light microscopyon 12-01-2021 Epithelial cells.squamous LM Ql (Urine sed) 0-5 SEEN /hpf 0-5 [facility] Work Phone: Thin prep Papanicolaou smear with manual screeningon 12-01-2021 Thin prep Papanicolaou smear with manual screening 7 5-15 [facility] Work Phone: Urine blood detectionon 11-05 RBC Ql (U) Negative Negative [facility] Work Phone: RBC Ql (U) 0 SEEN /hpf 0-5 [facility] Work Phone: Urine clarityon 12-01-2021 Clarity (U) Clear Clear [facility] Work Phone: Urine color determinationon 12-01-2021 Color (U) Yellow Yellow [facility] Work Phone: Urine glucose detectionon Glucose Ql (U) 50 mg/dl Normal [facility] Work Phone: Urine leukocyte esterase det ection by dipstickon 12-01-2021 Leukocyte esterase Test strip Ql (U) Negative Negative [facility] Work Phone: Urine pHon 12-01-2021 pH (U) 6.0 [pH] 5.0 - 8.0 [facility] Work Phone: Urine sediment bacteria coun t by microscopy (number/high power field)on 12-01-2021 Bacteria LM.HPF (Urine sed) [#/Area] 0 /[HPF] None Seen [facility] Work Phone: Urine sediment yeast count b y microscopy (number/high powered field)on 12-01-2021 Yeast LM.HPF (Urine sed) [#/Area] 2 /[HPF] None Seen [facility] Work Phone: Urine specific gravity measu rementon 12-01-2021 Specific gravity (U) [Rel density] 1.010 1.002-1.030 [facility] Work Phone: Urobilinogen Auto test strip Ql (U)on 12-01-2021 Urobilinogen Ql (U) Normal mg/dl Normal [facility] Work Phone: Whole blood prothrombin time on 12-01-2021 PT Coag (Bld) [Time] 19.8 s 11.7-14.9 [facility] Work Phone: Laboratory - Coagulationon 0 11-28-2021 INR Coag (Bld) [Relative time] 1.6 {INR} [facility] Work Phone: Comment on above: Critical Value > 4.0 Whole blood prothrombin time on 11-28-2021 PT Coag (Bld) [Time] 18.8 s 11.7-14.9 [facility] Work Phone: INR in Blood by Coagulation assayon 11-23-2021 INR Coag (Bld) [Relative time] 2.7 {INR} [facility] Work Phone: Laboratory - Coagulationon 0 11-23-2021 PT Coag (PPP) [Time] 28.0 s 11.7-14.9 [facility] Work Phone: Laboratory - Coagulationon 0 11-22-2021 INR Coag (Bld) [Relative time] 3.8 {INR} [facility] Work Phone: Comment on above: Critical Value > 4.0 Whole blood prothrombin time on 11-22-2021 PT Coag (Bld) [Time] 42.8 s 11.7-14.9 [facility] Work Phone: INR in Blood by Coagulation assayon 11-21-2021 INR Coag (Bld) [Relative time] 3.9 {INR} [facility] Work Phone: Laboratory - Coagulationon 0 11-21-2021 PT Coag (PPP) [Time] 37.7 s 11.7-14.9 [facility] Work Phone: Whole blood prothrombin time on 11-21-2021 PT Coag (Bld) [Time] 45.5 s 11.7-14.9 [facility] Work Phone: INR in Blood by Coagulation assayon 11-14-2021 INR Coag (Bld) [Relative time] 3.1 {INR} [facility] Work Phone: Laboratory - Coagulationon 0 11-14-2021 PT Coag (PPP) [Time] 31.4 s 11.7-14.9 [facility] Work Phone: Laboratory - Coagulationon 0 11-08-2021 INR Coag (Bld) [Relative time] 2.5 {INR} [facility] Work Phone: Comment on above: Critical Value > 4.0 Whole blood prothrombin time on 11-08-2021 PT Coag (Bld) [Time] 29.0 s 11.7-14.9 [facility] Work Phone: Basophil percentageon 2021 Chloride [Moles/Vol] 106 mmol/L 98-107 [facility] Work Phone: Glucose [Mass/Vol] 100 mg/dL 74-106 [facility] [place] Work Phone: Comment on above: Fasting Glucose resu lt from 100 to 125 mg/dL suggests IMPAIRED HOMEOSTASIS per A.D.A. criteria. Potassium [Moles/Vol] 3.7 mmol/L 3.5-5.1 [facility] Work Phone: Sodium [Moles/Vol] 140 mmol/L 136-145 [facility] Work Phone: WBC (Bld) [#/Vol] 8.8 10*3/uL 4.4-11.0 [facility] Work Phone: Blood erythrocytes count (nu mber/volume)on 11-04-2021 RBC (Bld) [#/Vol] 4.05 10*6/uL 4.6-6.2 [facility] Work Phone: Blood hemoglobin measurement (mass/volume)on 11-04-2021 Hemoglobin (Bld) [Mass/Vol] 11.1 g/dL 13.0-16.5 [facility] Work Phone: Blood platelet mean volumeon 11-04-2021 Platelet mean volume (Bld) [Entitic vol] 10.8 fL 6.2-12.0 [facility] Work Phone: Determination of erythrocyte mean corpuscular volume (MCV)on 11-04-2021 MCV (RBC) [Entitic vol] 86.9 fL 80-94 [facility] Work Phone: Hematocrit Auto (Bld) [Volum e fraction]on 11-04-2021 Hematocrit (Bld) [Volume fraction] 35.2 % 40-54 [facility] Work Phone: INR in Blood by Coagulation assayon 11-04-2021 INR Coag (Bld) [Relative time] 1.8 {INR} [facility] Work Phone: Laboratory - Chemistry and C hemistry - challengeon 11-04-2021 CO2 [Moles/Vol] 26.0 mmol/L 21.0-32.0 [facility] Work Phone: Urea nitrogen/Creatinine [Mass ratio] 18.3 mg/mg 10-20 [facility] Work Phone: Laboratory - Coagulationon 0 11-04-2021 PT Coag (PPP) [Time] 20.4 s 11.7-14.9 [facility] Work Phone: Laboratory - Hematology and Cell countson 11-04-2021 Erythrocyte distribution width (RBC) [Entitic vol] 48.1 fL 35.1-43.9 [facility] Work Phone: Erythrocyte distribution width (RBC) [Ratio] 15.0 % 11.6-14.6 [facility] Work Phone: MCH (RBC) [Entitic mass] 27.4 pg 27.0-32.0 [facility] Work Phone: MCHC Auto (RBC) [Mass/Vol]on 11-04-2021 MCHC (RBC) [Mass/Vol] 31.5 g/dL 32-36 [facility] Work Phone: No Panel Informationon 11-04 D-Dimer Quantitative (PE/DVT) 0.56 FEU/ug/m 0.27-0.49 [facility] Work Phone: Comment on above: D-Dimer ELEVATED (>0 .49): Additional studies and clinicalassessments are indicated to conclude diagnosis of:Deep Vein Thrombosis (DVT) or Pulmonary Embolism (PE) Estimated GFR (MDRD) Amer 155 mL/min >60 [facility] Work Phone: Comment on above: GFR Calc Estimated GFR (MDRD) Non-Af Amer 128 mL/min >60 [facility] Work Phone: Comment on above: Non- GFR Calc Troponin I High Sensitivity 11 pg/mL 3.0-78.0 [facility] Work Phone: Comment on above: Please Note: New Fadumo t Units and Gender Specific Reference Ranges. For more information see Policy Stat Procedure [place] High Sensitivity Troponin (TNIH) and attachments. Platelets bldon 11-04-2021 Platelets (Bld) [#/Vol] 364 10*3/uL 150-450 [facility] Work Phone: Serum or plasma C reactive p rotein measurement (mass/volume)on 11-04-2021 CRP [Mass/Vol] 31.90 mg/L 0.0-3.0 [facility] Work Phone: Comment on above: C-Reactive Protein ( CRP) provides useful information for thediagnosis, therapy and monitoring of inflammatory processesand associated diseases. For the evaluation of Relative Riskfor Cardiovascular Disease, a High Sensitivity CRP (HSCRP)should be ordered. Serum or plasma calcium oral urement (mass/volume)on 11-04-2021 Calcium [Mass/Vol] 9.1 mg/dL 8.5-10.1 oste r [facility] Work Phone: Serum or plasma creatinine m easurement (mass/volume)on 11-04-2021 Creatinine [Mass/Vol] 0.66 mg/dL 0.70-1.30 [facility] Work Phone: Comment on above: The validity of the calculated GFR & GFRAA in patients over 70 years has not been determined. Clinical correlation is essential. Serum or plasma urea nitroge n measurement (mass/volume)on 11-04-2021 Urea nitrogen [Mass/Vol] 12 mg/dL 7-18 [facility] Work Phone: Thin prep Papanicolaou smear with manual screeningon 11-04-2021 Thin prep Papanicolaou smear with manual screening 8 5-15 [facility] Work Phone: Complete Urinalysison 2021 Appearance (U) Clear Normal Clear [facility] [employer] Comment on above: Result Comment: . Performed By: #### C UA2 ####[id number] [place], [place] Bacteria Moderate Abnormal Negative [facility] [employer] Comment on above: Result Comment: . Performed By: #### C UA2 ####[employer] [id number] [place], [place] Bilirubin,Urine Negative Normal Negative [facility] Comment on above: Result Comment: . Performed By: #### C UA2 ####[employer] [address] [place], [place] Cast, Hyaline Negative Normal Negative [facility] Comment on above: Result Comment: . Performed By: #### C UA2 ####[employer] [address] [place], [place] Color (U) Yellow Normal Lt. Yellow [facility] Comment on above: Result Comment: . Performed By: #### C UA2 ####[employer] [address] [place], [place] Glucose Ql (U) Normal Normal Normal (<70) [facility] Comment on above: Result Comment: . Performed By: #### C UA2 ####[employer] [id number] [place] [address] Ketone,Urine Negative Normal Negative [facility] Comment on above: Result Comment: . Performed By: #### C UA2 ####[employer] [id number] [place], [place] Leukocytes,Urine Negative Normal Negative [facility] Comment on above: Result Comment: . Performed By: #### C UA2 ####[employer] [address] [place], [place] Mucous Threads Few Normal Negative [facility] Comment on above: Result Comment: . Performed By: #### C UA2 ####[id number] . [place], [place] Nitrites,Urine Negative Normal Negative [facility] Comment on above: Result Comment: . Performed By: #### C UA2 ####[address] [place], [place] Occult Blood,Urine 0.1 mg/dL Abnormal Negative [facility] Comment on above: Result Comment: . Performed By: #### C UA2 ####[address] [place], [place] pH,Urine 5.5 Normal 5.0-8.0 [facility] Comment on above: Result Comment: . Performed By: #### C UA2 ####[address] [place], [place] Protein (U) [Mass/Vol] 10 mg/dL Abnormal Negative [facility] Comment on above: Result Comment: . Performed By: #### C UA2 ####[address] [place], [place] RBC, Urine 26 - 50 Abnormal 0-2 [facility] Comment on above: Result Comment: . Performed By: #### C UA2 ####[address] [place] Specific [place],Urine 1.023 Normal 1.005 - 1.030 [facility] Comment on above: Result Comment: . Performed By: #### C UA2 ####[address] Squamous Epithelial Negative Normal 3-5 [facility] Comment on above: Result Comment: . Performed By: #### C UA2 ####[address] [place] Urobilinogen,Urine Normal Normal Normal (0-1) [facility] Comment on above: Result Comment: . Performed By: #### C UA2 ####[address] [place] [address] WBC, Urine 0 - 2 Normal 0-5 [facility] Comment on above: Result Comment: . Performed By: #### C UA2 ####[facility] [place] [address] Urinalysison 11-01-2021 Appearance (U) Clear Clear NA [...] Protein (U) [Mass/Vol] 10 mg/dL Abnormal Negative [facility] Comment on above: . RBC, UA 26-50 Abnormal 0 - 2 /[HPF] [facility] Comment on above: . Specific [place], Urine 1.023 [facility] Comment on above: . Squam Epithel, UA Negative 3 - 5 /[HPF] [facility] Comment on above: . Urobilinogen, Urine Normal Normal ( 0-1) mg/dL [facility] Comment on above: . WBC, UA 0-2 0 - 5 /[HPF] [facility] Comment on above: . Test Performed by [facility], [address] [place] [address] [facility] Basic Metabolic Panelon 10-06 Anion gap [Moles/Vol] 6 mmol/L Normal 3-13 [facility] Comment on above: Performed By: #### P T/AP, TROPN, BMP3, HEMDF #### [facility] [address] [place], [place] Calcium [Mass/Vol] 9.1 mg/dL Normal 8.4-10.4 [facility] Comment on above: Performed By: #### P T/AP, TROPN, BMP3, HEMDF #### [facility] [address] [place], [place] CO2 [Moles/Vol] 28 mmol/L Normal 22-30 [facility] Comment on above: Performed By: #### P T/AP, TROPN, BMP3, HEMDF #### [place] [address] [place], [place] Glucose [Mass/Vol] 120 mg/dL High 70-100 [facility] Comment on above: Performed By: #### P T/AP, TROPN, BMP3, HEMDF #### [place] [place], [place] Urea nitrogen [Mass/Vol] 17 mg/dL Normal 7-17 [facility] Comment on above: Performed By: #### P T/AP, TROPN, BMP3, HEMDF #### [place] [place], [place] Creatinine [Mass/Vol] 0.65 mg/dL Normal 0.52-1.25 [facility] Comment on above: Performed By: #### P T/AP, TROPN, BMP3, HEMDF #### [place] [place], [place] eGFR OTHER > 90.0 Normal >60 [facility] Comment on above: Result Comment: KDIG O [...] #### P T/AP, TROPN, BMP3, HEMDF #### [place] [address] [place], [place] GFR/1.73 sq M.predicted among blacks MDRD (S/P/Bld) [Vol rate/Area] mL/min/{1.73_m2} Normal >60 [facility] Comment on above: Performed By: #### P T/AP, TROPN, BMP3, HEMDF #### [address] [place] [address] [place], [place] Potassium [Moles/Vol] 3.8 mmol/L Normal 3.5-5.1 [facility] Comment on above: Performed By: #### P T/AP, TROPN, BMP3, HEMDF #### [place] [address] [place], [place] Chloride [Moles/Vol] 101 mmol/L Normal 98-107 [facility] Comment on above: Performed By: #### P T/AP, TROPN, BMP3, HEMDF #### [place] [address] [place], [place] Sodium [Moles/Vol] 134 mmol/L Low 135-145 [facility] Comment on above: Performed By: #### P T/AP, TROPN, BMP3, HEMDF #### [place] [address] [place], [place] Anion gap [Moles/Vol] 6 mmol/L 3 - 13 mmol/L [facility] Calcium [Mass/Vol] 9.1 mg/dL 8.4 - 10. 4 mg/dL [facility] Chloride [Moles/Vol] 101 mmol/L 98 - 10 7 mmol/L [facility] CO2 [Moles/Vol] 28 mmol/L 22 - 30 mmol/L [facility] Creatinine [Mass/Vol] 0.65 mg/dL 0.52 - 1.25 mg/dL [facility] EGFR IF NonAfrican [place] >90.0 >60 mL/min [facility] Comment on above: [...] - 17 mg/dL [facility] Test Performed by [facility], [address] [place] [id number] [place] [address] LAB [facility] CBC with Auto Differentialon 10-31-2021 [...] - 10.7 10*3/uL [facility] Test Performed by [address] LAB [facility] CR Abdomen APon 10-31-2021 CR Abdomen AP Patient Name: ANDREW SIFUENTES Diagnostic Radiology ACCESSION EXAM DATE/TIME PROCEDURE ORDERING PROVIDER [id number] 10/31/2021 20:36 EDT CR Abdomen AP [id number] MYRON GALINDO CPT code 99052 Reason For Exam (CR Abdomen AP) 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, 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 CHEST PORTABLE [...] Transcribed Date and Time: 10/31/2021 8:49 Normal [facility] CR Chest Portableon 11-01-19 CR Chest Portable Patient Name: ANDREW SIFUENTES Diagnostic Radiology ACCESSION EXAM DATE/TIME PROCEDURE ORDERING PROVIDER [id number] 10/31/2021 20:36 EDT CR Chest Portable [id number] MARTÍNEZ CPT code 17617 Reason For Exam (CR Chest Portable) AMS [...] Transcribed Date and Time: 10/31/2021 8:[address] [facility] [address] HEAD WO CONTRASTon 2021 Patient Name: ANDREW SIFUENTES Computed Tomography ACCESSION EXAM DATE/TIME PROCEDURE ORDERING PROVIDER [id number] 10/31/2021 20:[address] Head or Brain w/o [id number] -DURAN MYRON Contrast CPT code 39640 Reason For Exam (CT Head or Brain w/o Contrast) AMS, previous SMALL BATTERY PLATE ASSEMBLER shunt Report Examination: CT Head Clinical Information: AMS, previous SMALL BATTERY PLATE ASSEMBLER shunt Comparison: 10/26/2021, MRI 10/27/2021 Findings: Serial [...] J Transcribed Date and Time: 10/31/2021 8:54 [facility] Alan Wong MD - 10/31/2021 [id number] Tomography ACCESSION EXAM DATE/TIME PROCEDURE ORDERING PROVIDER [id number] 10/31/2021 20:[address] Head or Brain w/o [id number] -MYRON DURAN Contrast CPT code 87027 Reason For Exam (CT Head or Brain w/o Contrast) AMS, previous SMALL BATTERY PLATE ASSEMBLER shunt Report Examination: CT Head Clinical Information: AMS, previous SMALL BATTERY PLATE ASSEMBLER shunt Comparison: 10/26/2021, MRI 10/27/2021 Findings: Serial [...] Tomography ACCESSION EXAM DATE/TIME PROCEDURE ORDERING PROVIDER [id number] 10/31/2021 20:[address] Head or Brain w/o [id number] -DURAN, MYRON Contrast CPT code 11910 Reason For Exam (CT Head or Brain w/o Contrast) AMS, previous SMALL BATTERY PLATE ASSEMBLER shunt Report Examination: CT Head Clinical Information: AMS, previous SMALL BATTERY PLATE ASSEMBLER shunt Comparison: 10/26/2021, MRI 10/27/2021 Findings: Serial [...] Transcribed Date and Time: 10/31/2021 8:54 Normal [facility] ED Provider Noteon ED Provider Note Emergency [...] is cooperative and calm. According to the care home, he has been more lethargic than [...] Solutions Dante Kim MD 10/31/21 2211 Normal [facility] ED Provider Note [facility] EMERGENCY DEPT EMERGENCY DEPARTMENT ENCOUNTER Pt Name: Andrew Sifuentes Birthdate 1950 Date of evaluation: 10/31/2021 Provider: Myorn Duran MD CHIEF COMPLAINT Chief Complaint Patient presents with ? Altered Mental Status Pt presents to ED via [facility] for complaint listed. Pt is from [place] [facility]. Pt's LKW was 1000 hours today. [...] have a history of hydrocephalus with a SMALL BATTERY PLATE ASSEMBLER shunt. 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 REVIEW OF [...] (HCC) ? Kidney stone ? Neuropathy ? SMALL BATTERY PLATE ASSEMBLER (ventriculoperitoneal) shunt status SURGICAL HISTORY Past Surgical [...] of Transportati (more content not included)... 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: ANDRES : 1950 Requested By: MYRON DURAN Order Number: [id number] Reading MD: Dante Kim Measurements Intervals [place] Rate: 91 P: 41 [place]: 154 QRS: 50 QRSD: 147 T: 8 QT: 385 QTc: 474 Interpretive Statements Sinus rhythm Right bundle branch block Electronically Signed On 10-31-2021 20:36:25 EDT by Dante Kim [facility] C[facility] Dante Kim M D - 10/31/2021 [facility] Test Date: 2021-10-31 Pat Name: ANDREW SIFUENTES Department: ER Room: 40 Gender: M 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 Work Phone: EKG 12 Lead - Chest PainOrde red By: Dante Kim on 10-31-[address] [facility] Work Phone: Hemogram w/ Autodiffon 10-31 Abs Baso Cnt 0.1 10*3/uL Normal 0.0-0.2 [facility] Comment on above: Performed By: #### P T/AP, TROPN, BMP3, HEMDF #### [address] [address] Abs Neutrophile Cnt 6.0 10*3/uL Normal 1.8-7.0 [facility] Comment on above: Performed By: #### P T/AP, TROPN, BMP3, HEMDF #### [address] Basophils/100 WBC (Bld) 1.1 % Normal 0.0-2.0 [facility] Comment on above: Performed By: #### P T/AP, TROPN, BMP3, HEMDF #### [address] Eosinophils (Bld) [#/Vol] 0.2 10*3/uL Normal 0.0-0.5 [facility] Comment on above: Performed By: #### P T/AP, TROPN, BMP3, HEMDF #### [address] Eosinophils/100 WBC (Bld) 2.3 % Normal 1.0-6.0 [facility] Comment on above: Performed By: #### P T/AP, TROPN, BMP3, HEMDF #### [address] Erythrocyte distribution width (RBC) [Ratio] 17.2 % High 11.5-14.5 [facility] Comment on above: Performed By: #### P T/AP, TROPN, BMP3, HEMDF #### [address] Granulocytes/100 WBC (Bld) 61.8 % Normal 40.0-80.0 [facility] Comment on above: Performed By: #### P T/AP, TROPN, BMP3, HEMDF #### [address] Hematocrit (Bld) [Volume fraction] 35.0 % Low 40.0-52.0 [facility] Comment on above: Performed By: #### P T/AP, TROPN, BMP3, HEMDF #### [address] Hemoglobin (Bld) [Mass/Vol] 11.3 g/dL Low 13.0-18.0 [facility] Comment on above: Performed By: #### P T/AP, TROPN, BMP3, HEMDF #### [address] [place] Lymphocytes (Bld) [#/Vol] 2.8 10*3/uL Normal 1.0-4.3 [facility] Comment on above: Performed By: #### P T/AP, TROPN, BMP3, HEMDF #### [address] Lymphocytes/100 WBC (Bld) 29.2 % Normal 20.0-40.0 [facility] Comment on above: Performed By: #### P T/AP, TROPN, BMP3, HEMDF #### [address] MCH (RBC) [Entitic mass] 27.5 pg Normal 26.0-34.0 [facility] Comment on above: Performed By: #### P T/AP, TROPN, BMP3, HEMDF #### [address] MCHC 32.3 % Normal 32.0-36.0 [facility] Comment on above: Performed By: #### P T/AP, TROPN, BMP3, HEMDF #### [address] MCV (RBC) [Entitic vol] 85.0 fL Normal 80.0-98.0 [facility] Comment on above: Performed By: #### P T/AP, TROPN, BMP3, HEMDF #### [address] Monocytes (Bld) [#/Vol] 0.5 10*3/uL Normal 0.0-0.8 [facility] Comment on above: Performed By: #### P T/AP, TROPN, BMP3, HEMDF #### [address] Monocytes/100 WBC (Bld) 5.6 % Normal 2.0-10.0 [facility] Comment on above: Performed By: #### P T/AP, TROPN, BMP3, HEMDF #### [address] [address] [place], [place] Platelet mean volume (Bld) [Entitic vol] 8.6 fL Normal 7.4-12.4 [facility] Comment on above: Result Comment: MPV is a calculated measurement using platelet volume ratio. Performed By: #### P T/AP, TROPN, BMP3, HEMDF #### [facility] [address] [place], [place] Platelets (Bld) [#/Vol] 348 10*3/uL Normal 140-440 [facility] Comment on above: Performed By: #### P T/AP, TROPN, BMP3, HEMDF #### [facility] [address] [place] RBC (Bld) [#/Vol] 4.12 10*6/uL Low 4.40-5.90 [facility] Comment on above: Performed By: #### P T/AP, TROPN, BMP3, HEMDF #### [place] [address] [address] [place], [place] WBC (Bld) [#/Vol] 9.7 10*3/uL Normal 3.6-10.7 [facility] Comment on above: Performed By: #### P T/AP, TROPN, BMP3, HEMDF #### [facility] [address] [place], [place] Laboratory - Coagulationon 0 10-31-2021 INR Coag (Bld) [Relative time] 2.0 {INR} [facility] Work Phone: Comment on above: Critical Value > 4.0 No Panel Informationon 10-31 Radiology Study observation (narrative) [facility] Work Phone: PROTIME/INR & PTTon 11-01-19 22 aPTT Coag (Bld) [Time] 39.2 s High 20.0 - 30.[address] [facility] Comment on above: NOTE: The therapeuti c time for Heparin anticoagulation, based on Xa activity inhibition, is an APTT of 46-80 seconds. INR Coag (Bld) [Relative time] 1.9 {INR} High [facility] Comment on above: Recommended Anticoag ulant [...] Interpretation and review of laboratory results Abnormal [facility] PT Coag (PPP) [Time] 19.8 s High 9.0 - 12.[address] [facility] Comment on above: . Test Performed by [facility], [address] [place] [id number] [place] [address] - [facility] Protime AND APTTon 2 aPTT Coag (Bld) [Time] 39.2 s High 20.0-30.5 [facility] Comment on above: Result Comment: NOTE : The therapeutic time for Heparin anticoagulation, based on Xa activity inhibition, is an APTT of 46-80 seconds. Performed By: #### P T/AP, TROPN, BMP3, HEMDF #### [address] [phone] INR 1.9 High 0.9-1.1 [facility] Comment on above: Result Comment: Harry mmended [...] #### P T/AP, TROPN, BMP3, HEMDF #### [address] [address] PT Coag (PPP) [Time] 19.8 s High 9.0-12.0 [facility] Comment on above: Result Comment: . Performed By: #### P T/AP, TROPN, BMP3, HEMDF #### [address] [address] [place] [address] Troponin Ion 10-31-2021 Troponin I.cardiac [Mass/Vol] ng/mL Normal 0.000-0.034 [facility] Comment on above: Result Comment: . Performed By: #### P T/AP, TROPN, BMP3, HEMDF #### [facility] [address] [place] [address] Troponin x1on 10-31-2021 Troponin I.cardiac [Mass/Vol] ng/mL 0.000 - 0.034 ng/mL [facility] Comment on above: . Test Performed by [facility], [address] [place] [address] 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, 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 CHEST PORTABLE [...] WENDELL Transcribed Date and Time: 10/31/2021 8:49 [facility] - 10/31/2021 Patient Name: ANDREW SIFUENTES Diagnostic Radiology ACCESSION EXAM DATE/TIME PROCEDURE ORDERING PROVIDER [id number] 10/31/2021 20:36 EDT CR Abdomen AP [id number] -MYRON DURAN CPT code 80499 Reason For Exam (CR Abdomen AP) 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, 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 CHEST PORTABLE [...] and Time: 10/31/2021 8:49 [facility] Work Phone: [facility] Work Phone: XR CHEST PORTABLEon 11-01-19 Patient Name: ANDREW SIFUENTES Diagnostic Radiology ACCESSION EXAM DATE/TIME PROCEDURE ORDERING PROVIDER [id number] 10/31/2021 20:36 EDT CR Chest Portable MYRON CEBALLOS CPT code 43453 Reason For Exam (CR Chest Portable) AMS [...] WENDELL Transcribed Date and Time: 10/31/2021 8:49 [facility] Huang Reynoso MD - 10/31/2021 Patient Name: ANDREW SIFUENTES Diagnostic Radiology ACCESSION EXAM DATE/TIME PROCEDURE ORDERING PROVIDER [id number] 10/31/2021 20:36 EDT CR Chest Portable [id number] MARTÍNEZ CPT code 44568 Reason For Exam (CR Chest Portable) AMS [...] WENDELL Transcribed Date and Time: 10/31/2021 8:49 [facility] Work Phone: XR CHEST PORTABLEOrdered By: Huang Reynoso on 10-31-2021 [facility] Work Phone: Lupus Anticoagulanton 2021 DRVVT Confirmation Test Not Applicable Negative ratio [facility] Work Phone: dRVVT Screen 38 [facility] Work Phone: Hex Phosph Neut Test Not Applicable Negative NA [facility] Work Phone: Interpretation and review of laboratory results Abnormal [facility] Work Phone: LUPUS INTERPRETATION See Note [...] has not already been performed. Performed by [employer], [address] [place] [address] www.Cabeo, Quiana Castro MD - Lab. Director Platelet Neutralization Not Applicable Negative NA [facility] Work Phone: PTT-D Heparin Neutralized 48 [facility] Work Phone: PTT-LA 55 High [facility] Work Phone: Reptilase Tm 17.6 <=21.9 sec [facility] Work Phone: [phone] Thrombin Time 25.3 High [facility] Work Phone: [facility] Work Phone: Lupus Anticoagulant Reflexiv e Panelon 10-29-2021 aPTT Coag (Bld) [Time] 55 s High 32-48 [facility] Comment on above: Performed By: #### C OVAG #### [facility] [address] [place] [address] aPTT Coag (Bld) [Time] 48 s Normal 32-48 [facility] Comment on above: Performed By: #### C OVAG #### [facility] [address] [place] [address] DRVVT 1:1 Mix Not Applicable Normal 33-[address] [facility] Work Phone: Comment on above: Performed By: #### C OVAG #### [facility] [address] [place] [address] dRVVT Confirmation Not Applicable Normal Negative [facility] Comment on above: Performed By: #### C OVAG #### [facility] [address] [place] [address] dRVVT Screen 38 sec Normal 33-44 [facility] Comment on above: Performed By: #### C OVAG #### [facility] [address] [place] [address] Hexagonal Phospholipid Neutral Reflex Not Applicable Normal Negative [facility] Comment on above: Performed By: #### C OVAG #### [facility] [address] [place] [address] Lupus Anticoagulant Interpretation See Note Normal [facility] Comment on above: Result Comment: Lupu s [...] has not already been performed. Performed by [employer], [address] [place] [id number] www.Cabeo, Quiana Castro MD - Lab. Director Performed By: #### C OVAG #### [facility] [address] [place] [address] Platelet Neutralization (PTT-D, Confirm) Not Applicable Normal Negative [facility] Comment on above: Performed By: #### C OVAG #### [facility] [address] [place] [address] PT Coag (PPP) [Time] 14.7 s Normal 12.0-15.5 [facility] Work Phone: Comment on above: Performed By: #### C OVAG #### [facility] [address] [place] [address] PTT-D 1:1 Mix Not Applicable Normal 32-[address] [facility] Work Phone: Comment on above: Performed By: #### C OVAG #### [facility] [address] [place] [address] Reptilase Time 17.6 sec Normal <=21.9 [facility] Comment on above: Performed By: #### C OVAG #### [facility] [address] [place] [address] Thrombin Time 25.3 sec High 14.7-19.5 [facility] Comment on above: Performed By: #### C OVAG #### [facility] [address] [place] [address] POCT COVID-19, Antigenon SARS-CoV-2 Nucleocapsid Antigen Negative Negative [facility] Comment on above: A negative result does not rule out the possibility of SARS-CoV-2 infection. NAAT-based methods should be considered for symptomatic patients presenting greater than seven days after onset of symptoms. Method: Lateral flow immunoassay. Fact sheets for healthcare providers and patients can be found at the following sites: https://www.[employer].gov/media/540285/download https://www.[employer].gov/media/067813/download Test Performed by [facility], [address] [place], [place], [place] [address] [facility] Prothrombin Timeon INR 2.7 High 0.9-1.1 [facility] Comment on above: Result Comment: Harry mmended [...] Infarction Performed By: #### P T #### [facility] [address] [place] [address] PT Coag (PPP) [Time] 27.4 s High 9.0-12.0 [facility] Comment on above: Result Comment: . Performed By: #### P T #### [facility] [address] [place] [address] Protime-INRon 10-29-2021 INR Coag (Bld) [Relative time] 2.7 {INR} High [facility] Work Phone: Comment on above: Recommended [...] Interpretation and review of laboratory results Abnormal [facility] Work Phone: [phone] PT Coag (PPP) [Time] 27.4 s High 9.0 - 12.[address] [facility] Work Phone: [phone] Comment on above: . Test Performed by [employer], [address], [place], [place] [address] [facility] Work Phone: [phone] SARS-CoV-2 Antigenon 022 SARS-CoV-2 Antigen Negative Normal Negative [facility] [employer] Comment on above: Result Comment: A negative result does not rule out the possibility of SARS-CoV-2 infection. NAAT-based methods should be considered for symptomatic patients presenting greater than seven days after onset of symptoms. Method: Lateral flow immunoassay. Fact sheets for healthcare providers and patients can be found at the following sites: https://www.[employer].gov/media/440010/download https://www.[employer].gov/media/661654/download Performed By: #### C OVAG #### [facility] [address] [place] [address] CBCon 10-28-2021 Hematocrit (Bld) [Volume fraction] 33.4 % Low 40.0 - 52.0 % [facility] Work Phone: [phone] Hemoglobin (Bld) [Mass/Vol] 11.0 g/dL Low 13.0 - 18.0 g/dL [facility] Work Phone: [phone] Interpretation and review of laboratory results Abnormal [facility] Work Phone: [phone] MCH (RBC) [Entitic mass] 27.8 pg 26.0 - 34.[address] [facility] Work Phone: [phone] MCHC (RBC) [Mass/Vol] 32.8 % 32.0 - 36.0 % [facility] Work Phone: [phone] MCV (RBC) [Entitic vol] 84.8 fL 80.0 - 98.0 fL [facility] Work Phone: Platelet distribution width (Bld) [Ratio] 17.1 % High 11.5 - 14.5 % [facility] Work Phone: [phone] Platelet mean volume (Bld) [Entitic vol] 8.3 fL 7.4 - 12.4 fL [employer] Work Phone: Comment on above: MPV is a calculated measurement using platelet volume ratio. Platelets (Bld) [#/Vol] 344 10*3/uL 140 - 440 10*3/uL [facility] Work Phone: [phone] RBC (Bld) [#/Vol] 3.94 10*6/uL Low 4.40 - 5.9 0 10*6/uL [facility] Work Phone: [phone] WBC (Bld) [#/Vol] 10.0 10*3/uL 3.6 - 10.7 10*3/uL [facility] Work Phone: [phone] Test Performed by [facility], [address] [place], [place] [id number] [place] [address] [facility] Work Phone: Comp Metabolic Panelon 10-28 ALP [Catalytic activity/Vol] 103 U/L Normal 38-126 [facility] Comment on above: Performed By: #### C A19O, LUPUS #### The performing lab is in the report. #### NSEO #### [facility] #### HEMDF, LDH3, BMP3, MG3, PT, CEA2 #### [facility] [address] [place] [address] #### B2GPM, B2GPA, B2GPG #### [address] [address] ALT [Catalytic activity/Vol] 26 U/L Normal 0-49 [facility] Comment on above: Result Comment: The ALT test is performed by an updated assay method. Please note that the reference intervals have been changed and are now sex specific. Performed By: #### C A19O, LUPUS #### The performing lab is in the report. #### NSEO #### [facility] #### HEMDF, LDH3, BMP3, MG3, PT, CEA2 #### [facility] [address] [place] [address] #### B2GPM, B2GPA, B2GPG #### [address] AST [Catalytic activity/Vol] 24 U/L Normal 15-46 [facility] Comment on above: Performed By: #### C A19O, LUPUS #### The performing lab is in the report. #### NSEO #### [facility] #### HEMDF, LDH3, BMP3, MG3, PT, CEA2 #### [facility] [address] [place] [address] #### B2GPM, B2GPA, B2GPG #### [address] Calcium [Mass/Vol] 9.1 mg/dL Normal 8.4-10.4 [facility] Comment on above: Performed By: #### C A19O, LUPUS #### The performing lab is in the report. #### NSEO #### [facility] #### HEMDF, LDH3, BMP3, MG3, PT, CEA2 #### [facility] [address] [place] [address] #### B2GPM, B2GPA, B2GPG #### [address] Glucose [Mass/Vol] 117 mg/dL High 70-100 [facility] Comment on above: Performed By: #### C A19O, LUPUS #### The performing lab is in the report. #### NSEO #### [facility] #### HEMDF, LDH3, BMP3, MG3, PT, CEA2 #### [facility] [address] [place] [address] #### B2GPM, B2GPA, B2GPG #### [address] Urea nitrogen [Mass/Vol] 16 mg/dL Normal 7-17 [facility] Comment on above: Performed By: #### C A19O, LUPUS #### The performing lab is in the report. #### NSEO #### [facility] #### HEMDF, LDH3, BMP3, MG3, PT, CEA2 #### [place] [address] [place] [address] #### B2GPM, B2GPA, B2GPG #### [address] Anion gap [Moles/Vol] 5 mmol/L Normal 3-13 [facility] Comment on above: Performed By: #### C A19O, LUPUS #### The performing lab is in the report. #### NSEO #### [facility] #### HEMDF, LDH3, BMP3, MG3, PT, CEA2 #### [address] [place] [address] #### B2GPM, B2GPA, B2GPG #### [address] Bilirubin [Mass/Vol] 0.4 mg/dL Normal 0.2-1.3 [facility] Comment on above: Performed By: #### C A19O, LUPUS #### The performing lab is in the report. #### NSEO #### [facility] #### HEMDF, LDH3, BMP3, MG3, PT, CEA2 #### [address] [place] [address] #### B2GPM, B2GPA, B2GPG #### [address] CO2 [Moles/Vol] 29 mmol/L Normal 22-30 [facility] Comment on above: Performed By: #### C A19O, LUPUS #### The performing lab is in the report. #### NSEO #### [facility] #### HEMDF, LDH3, BMP3, MG3, PT, CEA2 #### [address] [place] [address] #### B2GPM, B2GPA, B2GPG #### [address] Creatinine [Mass/Vol] 0.71 mg/dL Normal 0.52-1.25 [facility] Comment on above: Performed By: #### Eileen A1TalitaO, LUPUS #### The performing lab is in the report. #### NSEO #### [facility] #### HEMDF, LDH3, BMP3, MG3, PT, CEA2 #### [facility] [address] [place], [place] #### B2GPM, B2GPA, B2GPG #### [facility] [address] [place], [place] eGFR OTHER > 90.0 Normal >60 [facility] Comment on above: Result Comment: KDIG O [...] LDH3, BMP3, MG3, PT, CEA2 #### [facility] [address] [place], [place] #### B2GPM, B2GPA, B2GPG #### [facility] [address] [place], [place] GFR/1.73 sq M.predicted among blacks MDRD (S/P/Bld) [Vol rate/Area] mL/min/{1.73_m2} Normal >60 [facility] Comment on above: Performed By: #### C A19O, LUPUS #### The performing lab is in the report. #### NSEO #### [facility] #### HEMDF, LDH3, BMP3, MG3, PT, CEA2 #### [place] [address] [place] [address] #### B2GPM, B2GPA, B2GPG #### [address] [address] Protein [Mass/Vol] 7.1 g/dL Normal 6.3-8.2 [facility] Comment on above: Performed By: #### C A19O, LUPUS #### The performing lab is in the report. #### NSEO #### [facility] #### HEMDF, LDH3, BMP3, MG3, PT, CEA2 #### [place] [address] [place] [address] #### B2GPM, B2GPA, B2GPG #### [address] [address] Potassium [Moles/Vol] 3.5 mmol/L Normal 3.5-5.1 [facility] Comment on above: Performed By: #### C A19O, LUPUS #### The performing lab is in the report. #### NSEO #### [facility] #### HEMDF, LDH3, BMP3, MG3, PT, CEA2 #### [place] [address] [facility] [place] [address] #### B2GPM, B2GPA, B2GPG #### [address] [address] Sodium [Moles/Vol] 138 mmol/L Normal 135-145 [facility] Comment on above: Performed By: #### C A19O, LUPUS #### The performing lab is in the report. #### NSEO #### [facility] #### HEMDF, LDH3, BMP3, MG3, PT, CEA2 #### [place] [address] [place] [address] #### B2GPM, B2GPA, B2GPG #### [address] Albumin [Mass/Vol] 3.7 g/dL Normal 3.5-5.0 [facility] Comment on above: Performed By: #### C A19O, LUPUS #### The performing lab is in the report. #### NSEO #### [facility] #### HEMDF, LDH3, BMP3, MG3, PT, CEA2 #### [place] [address] [place] [address] #### B2GPM, B2GPA, B2GPG #### [address] Chloride [Moles/Vol] 104 mmol/L Normal 98-107 [facility] Comment on above: Performed By: #### C A19O, LUPUS #### The performing lab is in the report. #### NSEO #### [facility] #### HEMDF, LDH3, BMP3, MG3, PT, CEA2 #### [place] [address] [place] [address] #### B2GPM, B2GPA, B2GPG #### [address] [address] Comprehensive Metabolic Pane kiel 10-28-2021 Albumin [Mass/Vol] 3.7 g/dL 3.5 - 5.0 g/dL [facility] Work Phone: [phone] ALP (Bld) [Catalytic activity/Vol] 103 U/L 38 - 126 U/L [facility] Work Phone: ALT [Catalytic activity/Vol] 26 U/L 0 - 49 U/L [facility] Work Phone: Comment on above: The ALT test is perf ormed by an updated assay method. Please note that the reference intervals have been changed and are now sex specific. Anion gap [Moles/Vol] 5 mmol/L 3 - 13 mmol/L [facility] Work Phone: AST [Catalytic activity/Vol] 24 U/L 15 - 46 U/L [facility] Work Phone: [phone] Bilirubin [Mass/Vol] 0.4 mg/dL 0.2 - 1 .3 mg/dL [facility] Work Phone: [phone] Calcium [Mass/Vol] 9.1 mg/dL 8.4 - 10. 4 mg/dL [facility] Work Phone: [phone] Chloride [Moles/Vol] 104 mmol/L 98 - 10 7 mmol/L [facility] Work Phone: [phone] CO2 [Moles/Vol] 29 mmol/L 22 - 30 mmol/L [facility] Work Phone: [phone] Creatinine [Mass/Vol] 0.71 mg/dL 0.52 - 1.25 mg/dL [facility] Work Phone: () EGFR IF NonAfrican Kittitian >90.0 >60 mL/min [facility] Work Phone: [phone] Comment on above: KDIGO [...] fraction] 7.1 g/dL 6.3 - 8.2 g/dL [facility] Work Phone: [phone] GFR/1.73 sq M.predicted among blacks MDRD (S/P/Bld) [Vol rate/Area] mL/min/{1.73_m2} >60 mL/min [facility] Work Phone: [phone] Glucose [Mass/Vol] 117 mg/dL High 70 - 100 mg/dL [facility] Work Phone: Interpretation and review of laboratory results Abnormal [facility] Work Phone: Potassium [Moles/Vol] 3.5 mmol/L 3.5 - 5.1 mmol/L [facility] Work Phone: Sodium [Moles/Vol] 138 mmol/L 135 - 145 mmol/L [facility] Work Phone: Urea nitrogen (BldV) [Mass/Vol] 16 mg/dL 7 - 17 mg/dL [facility] Work Phone: Test Performed by [facility], [address] [place], [place] [id number] [place] [address] [facility] Work Phone: Hemogramon 10-28-2021 Erythrocyte distribution width (RBC) [Ratio] 17.1 % High 11.5-14.5 [facility] Comment on above: Performed By: #### C A19O, LUPUS #### The performing lab is in the report. #### NSEO #### [facility] #### HEMDF, LDH3, BMP3, MG3, PT, CEA2 #### [facility] [address] [place] [address] #### B2GPM, B2GPA, B2GPG #### [address] Hematocrit (Bld) [Volume fraction] 33.4 % Low 40.0-52.0 [facility] Comment on above: Performed By: #### C A19O, LUPUS #### The performing lab is in the report. #### NSEO #### [facility] #### HEMDF, LDH3, BMP3, MG3, PT, CEA2 #### [facility] [address] [place] [address] #### B2GPM, B2GPA, B2GPG #### [address] Hemoglobin (Bld) [Mass/Vol] 11.0 g/dL Low 13.0-18.0 [facility] Comment on above: Performed By: #### C A19O, LUPUS #### The performing lab is in the report. #### NSEO #### [facility] #### HEMDF, LDH3, BMP3, MG3, PT, CEA2 #### [facility] [address] [place] [address] #### B2GPM, B2GPA, B2GPG #### [address] MCH (RBC) [Entitic mass] 27.8 pg Normal 26.0-34.0 [facility] Comment on above: Performed By: #### C A19O, LUPUS #### The performing lab is in the report. #### NSEO #### [facility] #### HEMDF, LDH3, BMP3, MG3, PT, CEA2 #### [facility] [address] [place], [place] #### B2GPM, B2GPA, B2GPG #### [address] MCHC 32.8 % Normal 32.0-36.0 [facility] Comment on above: Performed By: #### C A19O, LUPUS #### The performing lab is in the report. #### NSEO #### [facility] #### HEMDF, LDH3, BMP3, MG3, PT, CEA2 #### [facility] [address] [place], [place] #### B2GPM, B2GPA, B2GPG #### [address] MCV (RBC) [Entitic vol] 84.8 fL Normal 80.0-98.0 [facility] Comment on above: Performed By: #### C A19O, LUPUS #### The performing lab is in the report. #### NSEO #### [facility] #### HEMDF, LDH3, BMP3, MG3, PT, CEA2 #### [facility] [address] [place] [address] #### B2GPM, B2GPA, B2GPG #### [address] Platelet mean volume (Bld) [Entitic vol] 8.3 fL Normal 7.4-12.4 [facility] Comment on above: Result Comment: MPV is a calculated measurement using platelet volume ratio. Performed By: #### C A19O, LUPUS #### The performing lab is in the report. #### NSEO #### [facility] #### HEMDF, LDH3, BMP3, MG3, PT, CEA2 #### [address] [place] #### B2GPM, B2GPA, B2GPG #### [address] Platelets (Bld) [#/Vol] 344 10*3/uL Normal 140-440 [facility] Comment on above: Performed By: #### C A19O, LUPUS #### The performing lab is in the report. #### NSEO #### [facility] #### HEMDF, LDH3, BMP3, MG3, PT, CEA2 #### [address] [place] #### B2GPM, B2GPA, B2GPG #### [address] RBC (Bld) [#/Vol] 3.94 10*6/uL Low 4.40-5.90 [facility] Comment on above: Performed By: #### C A19O, LUPUS #### The performing lab is in the report. #### NSEO #### [facility] #### HEMDF, LDH3, BMP3, MG3, PT, CEA2 #### [place] [address] [place] [address] #### B2GPM, B2GPA, B2GPG #### [address] [address] WBC (Bld) [#/Vol] 10.0 10*3/uL Normal 3.6-10.7 [facility] Comment on above: Performed By: #### C A19O, LUPUS #### The performing lab is in the report. #### NSEO #### [facility] #### HEMDF, LDH3, BMP3, MG3, PT, CEA2 #### [facility] [address] [place] [address] #### B2GPM, B2GPA, B2GPG #### [facility] [address] [place] [address] Neuron Specific Enolaseon Neuron Specific Enolase 20.8 Normal [facility] Comment on above: Result Comment: Neur on Specific Enolase, Serum 20.8 ng/mL H (Ref Interval: <=12.7) NSE and Hgb are elevated in the specimen. The elevated NSE may be a result of hemolysis as NSE is expressed in red blood cells. Interpret results with caution. INTERPRETIVE INFORMATION: Neuron Specific Enolase in Serum This assay is performed using the [employer] NSE Kryptor Immunoassay. Results obtained with different assay methods or kits cannot be used interchangeably. Results cannot be interpreted as absolute evidence of the presence or absence of malignant disease. This test was developed and its performance characteristics determined by [employer]. It has not been cleared or approved by the [place] Food and Drug Administration. This test was performed in a CLIA certified laboratory and is intended for clinical purposes. Performed By: #### C OVAG #### [facility] [address] [place] [address] Neuron specific enolase (NSE )on 10-28-2021 Neuron Specific Enolase 20.[address] [facility] Work Phone: Comment on above: Neuron Specific Enol ase, Serum 20.8 ng/mL H (Ref Interval: <=12.7) NSE and Hgb are elevated in the specimen. The elevated NSE may be a result of hemolysis as NSE is expressed in red blood cells. Interpret results with caution. INTERPRETIVE INFORMATION: Neuron Specific Enolase in Serum This assay is performed using the [employer] NSE Kryptor Immunoassay. Results obtained with different assay methods or kits cannot be used interchangeably. Results cannot be interpreted as absolute evidence of the presence or absence of malignant disease. This test was developed and its performance characteristics determined by [employer]. It has not been cleared or approved by the [place] Food and Drug Administration. This test was performed in a CLIA certified laboratory and is intended for clinical purposes. 1 [facility] Work Phone: Prothrombin Timeon 2 INR 3.1 High 0.9-1.1 [facility] Comment on above: Result Comment: Harry mmended [...] LDH3, BMP3, MG3, PT, CEA2 #### [facility] [address] [place] [address] #### B2GPM, B2GPA, B2GPG #### [facility] [address] [place] [address] PT Coag (PPP) [Time] 30.8 s High 9.0-12.0 [facility] Comment on above: Result Comment: . Performed By: #### C A19O, LUPUS #### The performing lab is in the report. #### NSEO #### [facility] #### HEMDF, LDH3, BMP3, MG3, PT, CEA2 #### [facility] [address] [place] [address] #### B2GPM, B2GPA, B2GPG #### [facility] [address] [place] [address] Protime-INRon 10-28-2021 INR Coag (Bld) [Relative time] 3.1 {INR} High [facility] Work Phone: Comment on above: Recommended [...] Interpretation and review of laboratory results Abnormal [facility] Work Phone: PT Coag (PPP) [Time] 30.8 s High 9.0 - 12.[address] [facility] Work Phone: Comment on above: . Test Performed by [facility], [address] [place] [id number] [place] [address] [facility] Work Phone: MRI BRAIN WO CONTRASTon 10-06 Patient Name: ANDREW SIFUENTES Magnetic Resonance Imaging ACCESSION EXAM DATE/TIME PROCEDURE ORDERING PROVIDER [id number] 10/27/2021 13:14 EDT MRI Brain w/o Contrast UNASSIGNED, UNASSIGNED CPT code 59833 Reason For Exam (MRI Brain w/o Contrast) stroke Patient has SMALL BATTERY PLATE ASSEMBLER shunt in place, please follow Radiology protocol [...] RAMOS Transcribed Date and Time: 10/27/2021 2:39 [facility] Venus Loyd MD - 10/27/2021 Patient Name: ANDREW SIFUENTES Magnetic Resonance Imaging ACCESSION EXAM DATE/TIME PROCEDURE ORDERING PROVIDER [id number] 10/27/2021 13:14 EDT MRI Brain w/o Contrast UNASSIGNED, UNASSIGNED CPT code 72906 Reason For Exam (MRI Brain w/o Contrast) stroke Patient has SMALL BATTERY PLATE ASSEMBLER shunt in place, please follow Radiology protocol [...] Brain w/o Contrast [facility]: [id number] Res[facility] Imaging ACCESSION EXAM DATE/TIME PROCEDURE ORDERING PROVIDER [id number] 10/27/2021 13:14 EDT MRI Brain w/o Contrast UNASSIGNED, UNASSIGNED CPT code 43698 Reason For Exam (MRI Brain w/o Contrast) stroke Patient has SMALL BATTERY PLATE ASSEMBLER shunt in place, please follow Radiology protocol [...] Transcribed Date and Time: 10/27/2021 2:39 Normal [facility] Prothrombin Timeon 2 INR 2.1 High 0.9-1.1 [facility] Comment on above: Result Comment: Harry mmended [...] Infarction Performed By: #### P T #### [facility] [address] [place] [address] PT Coag (PPP) [Time] 21.9 s High 9.0-12.0 [facility] Work Phone: Comment on above: . Result Comment: . Performed By: #### P T #### [facility] [address] [place] [address] Protime-INRon 10-27-2021 INR Coag (Bld) [Relative time] 2.1 {INR} High [facility] Work Phone: Comment on above: Recommended [...] Interpretation and review of laboratory results Abnormal [facility] Work Phone: Test Performed by [facility], [address], [place], [place] [id number] [place] [address] [facility] Work Phone: CT HEAD WO CONTRASTon 2021 Patient Name: ANDREW SIFUENTES Computed Tomography ACCESSION EXAM DATE/TIME PROCEDURE ORDERING PROVIDER [id number] 10/26/2021 11:[address] Head or Brain w/o JUNIE PINEDA, SARINA Contrast CPT code 38800 Reason For Exam (CT Head or Brain w/o Contrast) hydrocephalus. thank you Report CLINICAL INFORMATION: Hydrocephalus. Shunt. 3 mm axial cuts through the head are obtained without IV contrast. The examination is compared to a previous study dated 06/29/2014. FINDINGS: Old SMALL BATTERY PLATE ASSEMBLER shunt tubing is noted bilaterally. The new [...] are clear. IMPRESSION: 1. Old and new SMALL BATTERY PLATE ASSEMBLER shunt tubing. 2. No hydrocephalus. 3. Atrophy [...] Tomography ACCESSION EXAM DATE/TIME PROCEDURE ORDERING PROVIDER [id number] 10/26/2021 11:[address] Head or Brain w/o JUNIE PINEDA, SARINA Contrast CPT code 22494 Reason For Exam (CT Head or Brain w/o Contrast) hydrocephalus. thank you Report CLINICAL INFORMATION: Hydrocephalus. Shunt. 3 mm axial cuts through the head are obtained without IV contrast. The examination is compared to a previous study dated 06/29/2014. FINDINGS: Old SMALL BATTERY PLATE ASSEMBLER shunt tubing is noted bilaterally. The new [...] are clear. IMPRESSION: 1. Old and new SMALL BATTERY PLATE ASSEMBLER shunt tubing. 2. No hydrocephalus. 3. Atrophy [...] Tomography ACCESSION EXAM DATE/TIME PROCEDURE ORDERING PROVIDER [id number] 10/26/2021 11:[address] Head or Brain w/o LOISJUNIE MASON, SARINA Contrast CPT code 59841 Reason For Exam (CT Head or Brain w/o Contrast) hydrocephalus. thank you Report CLINICAL INFORMATION: Hydrocephalus. Shunt. 3 mm axial cuts through the head are obtained without IV contrast. The examination is compared to a previous study dated 06/29/2014. FINDINGS: Old SMALL BATTERY PLATE ASSEMBLER shunt tubing is noted bilaterally. The new [...] are clear. IMPRESSION: 1. Old and new SMALL BATTERY PLATE ASSEMBLER shunt tubing. 2. No hydrocephalus. 3. Atrophy and evidence of small-vessel ischemic disease. 4. No CT evidence of an acute intracranial process. Report Dictated on Final Dictating Physician: MD SOLANO JEFFREY Signed Date and Time: 10/26/2021 11:42 am Signed by: MD SOLANO JEFFREY Transcribed Date and Time: 10/26/2021 11:43 Normal [facility] EEG awake and asleepon 10-26 Bony Tompkins MD 10/26/2021 4:06 PM [facility] [address] [place] [address] ROUTINE EEG REPORT Patient Name: Andrew Sifuentes : 1950 Date of Study: 10/26/2021 Duration Recorded: 23 minutes EEG#: [id number] FIELD ADMINISTRATOR: CASTRO PROVIDER REQUESTING STUDY: Dr. Barreto REASON FOR EXAM: seizures HISTORY: Andrew Sifuentes is a 71 y.o. 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 At present patient is awake, follows commands, was able to tell his name, and that he was in hospital but not oriented to time. Per documentation patient had NCSE in May 2021, was on Vimpat, but it was discontinued as there was no evidence of recurrent seizures in July 2021 by Neurology at [facility], per daughter patient was on Dilantin for 31 yrs. Per daughter patient had seizures in the past and also felt he had staring episodes this morning. Leonid daughter patient has been essentially bed bound in [place] since May 2021 but prior to that [...] 40 mEq 40 mEq Oral PRN May Csah MD Or potassium bicarb-citric acid (EFFER-K) effervescent [...] was carried out at [facility]. Scalp electrodes were positioned in [...] No normal vari (more content not included)... [employer] Work Phone: [employer] Work Phone: No Panel Informationon 10-26 Radiology Study observation (narrative) [employer] Work Phone: Prothrombin Timeon 2 INR 1.9 High 0.9-1.1 [facility] [employer] Comment on above: Result Comment: Harry mmended [...] Infarction Performed By: #### C OVAG #### [facility] [address] [place] [address] PT Coag (PPP) [Time] 19.7 s High 9.0-12.0 [facility] [employer] Comment on above: Result Comment: . Performed By: #### C OVAG #### [employer] [address] [place] [address] Protime-INRon 10-26-2021 INR Coag (Bld) [Relative time] 1.9 {INR} High [facility] Work Phone: Comment on above: Recommended Anticoag [...] Interpretation and review of laboratory results Abnormal [facility] Work Phone: PT Coag (PPP) [Time] 19.7 s High 9.0 - 12.[address] [facility] Work Phone: Comment on above: . Test Performed by [facility], [address] [place], [place] [address] [facility] Work Phone: CA 19-9on 10-25-2021 CA 19-9 17 U/mL Normal <=[address] [facility] Work Phone: Comment on above: INTERPRETIVE [...] or absence of malignant disease. Performed By: [place] [address] [employer] Dealer: Quiana Castro MD Result Comment: INTE RPRETIVE [...] or absence of malignant disease. Performed By: [employer] [place] [id number] [employer]er: Quiana Castro MD Performed By: #### C OVAG #### [facility] [address] [place] [address] Cancer Antigen 19-9on [address] [facility] Work Phone: Prothrombin Timeon 2 INR 1.5 High 0.9-1.1 [facility] Comment on above: Result Comment: Harry mmended [...] Infarction Performed By: #### P T #### [facility] [address] [place] [address] PT Coag (PPP) [Time] 15.6 s High 9.0-12.0 [facility] Comment on above: Result Comment: . Performed By: #### P T #### [facility] [address] [place] [address] Protime-INRon 10-25-2021 INR Coag (Bld) [Relative time] 1.5 {INR} High [facility] Work Phone: Comment on above: Recommended [...] Interpretation and review of laboratory results Abnormal [facility] Work Phone: PT Coag (PPP) [Time] 15.6 s High 9.0 - 12.[address] [facility] Work Phone: Comment on above: . Test Performed by [facility], [address] [place], [place] [id number] [place] [address] LAB [facility] Work Phone: B-2 Glycoprotein (IGA)on Beta-2 Glyco 1 IgA <2.0 U/mL [facility] Work Phone: Comment on above: Interpretive [...] 10-24-2021 Beta-2 Glyco 1 IgG <1.4 U/mL [facility] Work Phone: Comment on above: Interpretive Informa tion: Results equal to or greater than 20 U/mL = POSITIVE Results less than 20 U/mL = NEGATIVE Basic Metabolic Panelon 10-06 Anion gap [Moles/Vol] 8 mmol/L Normal 3-13 [facility] Comment on above: Performed By: #### C A19O, LUPUS #### The performing lab is in the report. #### NSEO #### [facility] #### HEMDF, LDH3, BMP3, MG3, PT, CEA2 #### [facility] [address] [place] [address] #### B2GPM, B2GPA, B2GPG #### [facility] [address] [place] [address] Calcium [Mass/Vol] 8.8 mg/dL Normal 8.4-10.4 [facility] Comment on above: Performed By: #### C A19O, LUPUS #### The performing lab is in the report. #### NSEO #### [facility] #### HEMDF, LDH3, BMP3, MG3, PT, CEA2 #### [facility] [address] [place] [address] #### B2GPM, B2GPA, B2GPG #### [address] CO2 [Moles/Vol] 25 mmol/L Normal 22-30 [facility] Comment on above: Performed By: #### C A19O, LUPUS #### The performing lab is in the report. #### NSEO #### [facility] #### HEMDF, LDH3, BMP3, MG3, PT, CEA2 #### [facility] [address] [place] [address] #### B2GPM, B2GPA, B2GPG #### [address] Creatinine [Mass/Vol] 0.74 mg/dL Normal 0.52-1.25 [facility] Comment on above: Performed By: #### C A19O, LUPUS #### The performing lab is in the report. #### NSEO #### [facility] #### HEMDF, LDH3, BMP3, MG3, PT, CEA2 #### [facility] [address] [place] [address] #### B2GPM, B2GPA, B2GPG #### [address] eGFR OTHER > 90.0 Normal >60 [facility] Comment on above: Result Comment: KDIG O [...] LDH3, BMP3, MG3, PT, CEA2 #### [facility] [address] [place] [address] #### B2GPM, B2GPA, B2GPG #### [address] GFR/1.73 sq M.predicted among blacks MDRD (S/P/Bld) [Vol rate/Area] mL/min/{1.73_m2} Normal >60 [facility] Comment on above: Performed By: #### C A19O, LUPUS #### The performing lab is in the report. #### NSEO #### [facility] #### HEMDF, LDH3, BMP3, MG3, PT, CEA2 #### [place] [address] [place] [address] #### B2GPM, B2GPA, B2GPG #### [address] Glucose [Mass/Vol] 116 mg/dL High 70-100 [facility] Comment on above: Performed By: #### C A19O, LUPUS #### The performing lab is in the report. #### NSEO #### [facility] #### HEMDF, LDH3, BMP3, MG3, PT, CEA2 #### [address] [place] [address] #### B2GPM, B2GPA, B2GPG #### [address] Urea nitrogen [Mass/Vol] 19 mg/dL High 7-17 [facility] Comment on above: Performed By: #### C A19O, LUPUS #### The performing lab is in the report. #### NSEO #### [facility] #### HEMDF, LDH3, BMP3, MG3, PT, CEA2 #### [place] [address] [place] [address] #### B2GPM, B2GPA, B2GPG #### [address] Chloride [Moles/Vol] 107 mmol/L Normal 98-107 [facility] Comment on above: Performed By: #### C A19O, LUPUS #### The performing lab is in the report. #### NSEO #### [facility] #### HEMDF, LDH3, BMP3, MG3, PT, CEA2 #### [place] [address] [place] #### B2GPM, B2GPA, B2GPG #### [address] Potassium [Moles/Vol] 3.9 mmol/L Normal 3.5-5.1 [facility] Comment on above: Performed By: #### C A19O, LUPUS #### The performing lab is in the report. #### NSEO #### [facility] #### HEMDF, LDH3, BMP3, MG3, PT, CEA2 #### [place] [address] [place] [address] #### B2GPM, B2GPA, B2GPG #### [address] Sodium [Moles/Vol] 140 mmol/L Normal 135-145 [facility] Comment on above: Performed By: #### C A19O, LUPUS #### The performing lab is in the report. #### NSEO #### [facility] #### HEMDF, LDH3, BMP3, MG3, PT, CEA2 #### [place] [address] [place] [address] #### B2GPM, B2GPA, B2GPG #### [address] Anion gap [Moles/Vol] 8 mmol/L 3 - 13 mmol/L [facility] Calcium [Mass/Vol] 8.8 mg/dL 8.4 - 10. 4 mg/dL [facility] Chloride [Moles/Vol] 107 mmol/L 98 - 10 7 mmol/L [facility] CO2 [Moles/Vol] 25 mmol/L 22 - 30 mmol/L [facility] Creatinine [Mass/Vol] 0.74 mg/dL 0.52 - 1.25 mg/dL [facility] EGFR IF NonAfrican Kittitian >90.0 >60 mL/min [facility] Comment on above: [...] - 17 mg/dL [facility] Test Performed by [facility], [address], [place], [place] [id number] [place] [address] LAB [facility] Beta-2 Glycoprotein I IgAon 10-24-2021 Beta-2 Glycoprotein I IgA < 2.0 Normal [facility] Comment on above: Result Comment: Inte rpretive Information: Results equal to or greater than 20 U/mL = POSITIVE Results less than 20 U/mL = NEGATIVE Performed By: #### C OVAG #### [facility] [address] [place] [address] Beta-2 Glycoprotein I IgGon 10-24-2021 Beta-2 Glycoprotein I IgG < 1.4 Normal [facility] Comment on above: Result Comment: Inte rpretive Information: Results equal to or greater than 20 U/mL = POSITIVE Results less than 20 U/mL = NEGATIVE Performed By: #### C OVAG #### [facility] [address] [place] [address] Beta-2 Glycoprotein I IgMon 10-24-2021 Beta-2 Glycoprotein I IgM < 1.5 Normal [facility] Comment on above: Result Comment: Inte rpretive Information: Results equal to or greater than 20 U/mL = POSITIVE Results less than 20 U/mL = NEGATIVE Performed By: #### C OVAG #### [facility] [address] [place] [address] No Panel Informationon 10-24 [facility] Test Performed by [facility], [address] [place] [id number] [facility] Work Phone: PROTEIN C FUNCTIONALon 10-24 Interpretation and review of laboratory results Abnormal [facility] Protein C-Functional 185 % High 83 [...] reference intervals for this test in the [employer] Laboratory Test Directory ([facility]). Performed by [employer], [address] [place] [id number] www.[email or web address], Quiana Castro MD - Lab. Director Protein C, Functionalon 10-06 Protein C, Functional 185 % High 83-168 [facility] Comment on above: Result Comment: INTE RPRETIVE [...] reference intervals for this test in the [employer] Laboratory Test Directory ([facility]). Performed by [employer], [address] [facility], [place] [address] www.[employer], Quiana Castro MD - Lab. Director Performed By: #### P T #### [facility] [address] [place] [address] Protein S, Functionalon 10-06 Protein S, Functional [...] reference intervals for this test in the [employer] [facility] Test Directory ([facility]). Performed by [employer], [address] [facility], [place] [address] www.[employer], Quiana Castro MD - Lab. Director Result [...] reference intervals for this test in the [employer] [facility] Test Directory ([facility]). Performed by [employer], [address] [facility], [place] [address] www.[employer], Quiana Castro MD - Lab. Director Performed By: #### P T #### [facility] [employer] [facility] [address] [place] [address] Prothrombin Timeon 2 INR 1.2 High 0.9-1.1 [facility] Comment on above: Result Comment: Harry mmended [...] HEMDF, LDH3, BMP3, MG3, PT, CEA2 #### [address] [place] [address] #### B2GPM, B2GPA, B2GPG #### [address] PT Coag (PPP) [Time] 12.6 s High 9.0-12.0 [facility] Comment on above: Result Comment: . Performed By: #### C A19O, LUPUS #### The performing lab is in the report. #### NSEO #### [facility] #### HEMDF, LDH3, BMP3, MG3, PT, CEA2 #### [address] [place] [address] #### B2GPM, B2GPA, B2GPG #### [address] Protime-INRon 10-24-2021 INR Coag (Bld) [Relative time] 1.2 {INR} High [facility] Comment on above: Recommended Anticoag ulant [...] Interpretation and review of laboratory results Abnormal [facility] PT Coag (PPP) [Time] 12.6 s High 9.0 - 12.[address] [facility] Comment on above: . Test Performed by [facility], [address] [place] [address] [facility] Basic Metabolic Panelon - Anion gap [Moles/Vol] 10 mmol/L Normal 3-13 [facility] Comment on above: Performed By: #### C A19O, LUPUS #### The performing lab is in the report. #### NSEO #### [facility] #### HEMDF, LDH3, BMP3, MG3, PT, CEA2 #### [facility] [address] [place] [address] #### B2GPM, B2GPA, B2GPG #### [facility] [address] [place] [address] Calcium [Mass/Vol] 9.6 mg/dL Normal 8.4-10.4 [facility] Comment on above: Performed By: #### C A19O, LUPUS #### The performing lab is in the report. #### NSEO #### [facility] #### HEMDF, LDH3, BMP3, MG3, PT, CEA2 #### [facility] [address] [place] [address] #### B2GPM, B2GPA, B2GPG #### [facility] [address] [place] [address] CO2 [Moles/Vol] 27 mmol/L Normal 22-30 [facility] Comment on above: Performed By: #### C A19O, LUPUS #### The performing lab is in the report. #### NSEO #### [facility] #### HEMDF, LDH3, BMP3, MG3, PT, CEA2 #### [facility] [address] [place] [address] #### B2GPM, B2GPA, B2GPG #### [address] Glucose [Mass/Vol] 109 mg/dL High 70-100 [facility] Comment on above: Performed By: #### C A19O, LUPUS #### The performing lab is in the report. #### NSEO #### [facility] #### HEMDF, LDH3, BMP3, MG3, PT, CEA2 #### [address] [place] #### B2GPM, B2GPA, B2GPG #### [address] Urea nitrogen [Mass/Vol] 18 mg/dL High 7-17 [facility] Comment on above: Performed By: #### C A19O, LUPUS #### The performing lab is in the report. #### NSEO #### [facility] #### HEMDF, LDH3, BMP3, MG3, PT, CEA2 #### [address] [place] #### B2GPM, B2GPA, B2GPG #### [address] Creatinine [Mass/Vol] 0.82 mg/dL Normal 0.52-1.25 [facility] Comment on above: Performed By: #### C A19O, LUPUS #### The performing lab is in the report. #### NSEO #### [facility] #### HEMDF, LDH3, BMP3, MG3, PT, CEA2 #### [address] [place] #### B2GPM, B2GPA, B2GPG #### [address] GFR/1.73 sq M.predicted among blacks MDRD (S/P/Bld) [Vol rate/Area] mL/min/{1.73_m2} Normal >60 [facility] Comment on above: Performed By: #### C A19O, LUPUS #### The performing lab is in the report. #### NSEO #### [facility] #### HEMDF, LDH3, BMP3, MG3, PT, CEA2 #### [facility] [address] [place] [address] #### B2GPM, B2GPA, B2GPG #### [facility] [address] [place] [address] GFR/1.73 sq M.predicted among non-blacks MDRD (S/P/Bld) [Vol rate/Area] 89.9 mL/min/{1.73_m2} Normal >60 [facility] Comment on above: Result Comment: KDIG O [...] LDH3, BMP3, MG3, PT, CEA2 #### [facility] [address] [place] [address] #### B2GPM, B2GPA, B2GPG #### [address] [address] Chloride [Moles/Vol] 104 mmol/L Normal 98-107 [facility] Comment on above: Performed By: #### C A19O LUPUS #### The performing lab is in the report. #### NSEO #### [facility] #### HEMDF, LDH3, BMP3, MG3, PT, CEA2 #### [facility] [address] [place] [address] #### B2GPM, B2GPA, B2GPG #### [address] Potassium [Moles/Vol] 3.9 mmol/L Normal 3.5-5.1 [facility] Comment on above: Performed By: #### C A19O, LUPUS #### The performing lab is in the report. #### NSEO #### [facility] #### HEMDF, LDH3, BMP3, MG3, PT, CEA2 #### [place] [address] [place] [address] #### B2GPM, B2GPA, B2GPG #### [address] Sodium [Moles/Vol] 142 mmol/L Normal 135-145 [facility] Comment on above: Performed By: #### C A19O, LUPUS #### The performing lab is in the report. #### NSEO #### [facility] #### HEMDF, LDH3, BMP3, MG3, PT, CEA2 #### [place] [address] [place] [address] #### B2GPM, B2GPA, B2GPG #### [address] Anion gap [Moles/Vol] 10 mmol/L 3 - 13 mmol/L [facility] Work Phone: [phone] Calcium [Mass/Vol] 9.6 mg/dL 8.4 - 10. 4 mg/dL [facility] Work Phone: [phone] Chloride [Moles/Vol] 104 mmol/L 98 - 10 7 mmol/L [facility] Work Phone: [phone] CO2 [Moles/Vol] 27 mmol/L 22 - 30 mmol/L [facility] Work Phone: [phone] Creatinine [Mass/Vol] 0.82 mg/dL 0.52 - 1.25 mg/dL [employer] Work Phone: [phone] EGFR IF NonAfrican Kittitian 89.9 mL/min >60 [facility] Work Phone: [phone] Comment on above: KDIGO guidelines pro vide [...] MDRD (S/P/Bld) [Vol rate/Area] mL/min/{1.73_m2} >60 mL/min [facility] Work Phone: Glucose [Mass/Vol] 109 mg/dL High 70 - 100 mg/dL [facility] Work Phone: [phone] Interpretation and review of laboratory results Abnormal [facility] Work Phone: [phone] Potassium [Moles/Vol] 3.9 mmol/L 3.5 - 5.1 mmol/L [facility] Work Phone: [phone] Sodium [Moles/Vol] 142 mmol/L 135 - 145 mmol/L [facility] Work Phone: Urea nitrogen (BldV) [Mass/Vol] 18 mg/dL High 7 - 17 mg/dL [facility] Work Phone: CBC with Auto Differentialon 10-23-2021 Absolute Baso # 0.1 10*3/uL 0.0 - 0.2 10*3/uL [facility] Work Phone: Absolute Neut # 6.6 10*3/uL 1.8 - 7.0 10*3/uL [facility] Work Phone: [phone] Basophils/100 WBC (Bld) 1.1 % 0.0 - 2.0 % [employer] Work Phone: [phone] Eosinophils (Bld) [#/Vol] 0.4 10*3/uL 0.0 - 0.5 10*3/uL [facility] Work Phone: [phone] Eosinophils/100 WBC (Bld) 3.9 % 1.0 - 6.0 % [employer] Work Phone: [phone]() [phone] Granulocytes/100 WBC (Bld) 64.0 % 40.0 - 80.0 % [employer] Work Phone: [phone] Hematocrit (Bld) [Volume fraction] 35.1 % Low 40.0 - 52.0 % [employer] Work Phone: [phone] Hemoglobin (Bld) [Mass/Vol] 11.6 g/dL Low 13.0 - 18.0 g/dL [employer] Work Phone: [phone] Interpretation and review of laboratory results Abnormal [employer] Work Phone: [phone] Lymphocytes (Bld) [#/Vol] 2.6 10*3/uL 1.0 - 4.3 10*3/uL [employer] Work Phone: [phone] Lymphocytes/100 WBC (Bld) 25.0 % 20.0 - 40.0 % [employer] Work Phone: [phone] MCH (RBC) [Entitic mass] 28.4 pg 26.0 - 34.0 pg [facility] Work Phone: [phone] MCHC (RBC) [Mass/Vol] 33.1 % 32.0 - 36.0 % [facility] Work Phone: [phone] MCV (RBC) [Entitic vol] 85.9 fL 80.0 - 98.0 fL [employer] Work Phone: [phone] Monocytes (Bld) [#/Vol] 0.6 10*3/uL 0.0 - 0.8 10*3/uL [facility] Work Phone: [phone] Monocytes/100 WBC (Bld) 6.0 % 2.0 - 10.0 % [facility] Work Phone: [phone] Platelet distribution width (Bld) [Ratio] 17.4 % High 11.5 - 14.5 % [facility] Work Phone: [phone] Platelet mean volume (Bld) [Entitic vol] 8.1 fL 7.4 - 12.4 fL [facility] Work Phone: [phone] Comment on above: MPV is a calculated measurement using platelet volume ratio. Platelets (Bld) [#/Vol] 450 10*3/uL High 140 - 440 10*3/uL [facility] Work Phone: [phone] RBC (Bld) [#/Vol] 4.08 10*6/uL Low 4.40 - 5.9 0 10*6/uL [facility] Work Phone: [phone] WBC (Bld) [#/Vol] 10.3 10*3/uL 3.6 - 10.7 10*3/uL [facility] Work Phone: [phone] Test Performed by [facility], [address] [place] [address] [place], [place] [id number] [place] [address] LAB [employer] Work Phone: [phone] CEAon 10-23-2021 CEA 0.8 ng/mL 0.0 - 3.0 ng/mL [facility] Work Phone: [phone] Test Performed by [facility], [address] [place] [address] [place], [place] [id number] [place] [address] LAB [facility] Work Phone: [phone] Carcinoembryonic Agon 2021 Carcinoembryonic Ag. 0.8 ng/mL Normal 0.0-3.0 [facility] [employer] Comment on above: Performed By: #### C A19O, LUPUS #### The performing lab is in the report. #### NSEO #### [facility] #### HEMDF, LDH3, BMP3, MG3, PT, CEA2 #### [facility] [employer] [facility] [address] [place] [address] #### B2GPM, B2GPA, B2GPG #### [facility] [employer] [address] Hemogram w/ Autodiffon 10-23 Abs Baso Cnt 0.1 10*3/uL Normal 0.0-0.2 [facility] Comment on above: Performed By: #### C A19O, LUPUS #### The performing lab is in the report. #### NSEO #### [facility] #### HEMDF, LDH3, BMP3, MG3, PT, CEA2 #### [facility] [address] [place] [address] #### B2GPM, B2GPA, B2GPG #### [address] Abs Neutrophile Cnt 6.6 10*3/uL Normal 1.8-7.0 [facility] Comment on above: Performed By: #### C A19O, LUPUS #### The performing lab is in the report. #### NSEO #### [facility] #### HEMDF, LDH3, BMP3, MG3, PT, CEA2 #### [facility] [address] [place], [place] #### B2GPM, B2GPA, B2GPG #### [address] Basophils/100 WBC (Bld) 1.1 % Normal 0.0-2.0 [facility] Comment on above: Performed By: #### C A19O, LUPUS #### The performing lab is in the report. #### NSEO #### [facility] #### HEMDF, LDH3, BMP3, MG3, PT, CEA2 #### [facility] [address] [place], [place] #### B2GPM, B2GPA, B2GPG #### [address] Eosinophils (Bld) [#/Vol] 0.4 10*3/uL Normal 0.0-0.5 [facility] Comment on above: Performed By: #### C A19O, LUPUS #### The performing lab is in the report. #### NSEO #### [facility] #### HEMDF, LDH3, BMP3, MG3, PT, CEA2 #### [facility] [address] [facility] [place] [address] #### B2GPM, B2GPA, B2GPG #### [address] [phone] Eosinophils/100 WBC (Bld) 3.9 % Normal 1.0-6.0 [facility] Comment on above: Performed By: #### C A19O, LUPUS #### The performing lab is in the report. #### NSEO #### [facility] #### HEMDF, LDH3, BMP3, MG3, PT, CEA2 #### [address] [place], [place] #### B2GPM, B2GPA, B2GPG #### [address] [phone] Erythrocyte distribution width (RBC) [Ratio] 17.4 % High 11.5-14.5 [facility] Comment on above: Performed By: #### C A19O, LUPUS #### The performing lab is in the report. #### NSEO #### [facility] #### HEMDF, LDH3, BMP3, MG3, PT, CEA2 #### [address] [place], [place] #### B2GPM, B2GPA, B2GPG #### [address] [address] Granulocytes/100 WBC (Bld) 64.0 % Normal 40.0-80.0 [facility] Comment on above: Performed By: #### C A19O, LUPUS #### The performing lab is in the report. #### NSEO #### [facility] #### HEMDF, LDH3, BMP3, MG3, PT, CEA2 #### [place] [address] [place] #### B2GPM, B2GPA, B2GPG #### [address] Hematocrit (Bld) [Volume fraction] 35.1 % Low 40.0-52.0 [facility] Comment on above: Performed By: #### C A19O, LUPUS #### The performing lab is in the report. #### NSEO #### [facility] #### HEMDF, LDH3, BMP3, MG3, PT, CEA2 #### [facility] [address] [place], [place] #### B2GPM, B2GPA, B2GPG #### [address] Hemoglobin (Bld) [Mass/Vol] 11.6 g/dL Low 13.0-18.0 [facility] Comment on above: Performed By: #### C A19O, LUPUS #### The performing lab is in the report. #### NSEO #### [facility] #### HEMDF, LDH3, BMP3, MG3, PT, CEA2 #### [facility] [address] [place] #### B2GPM, B2GPA, B2GPG #### [address] Lymphocytes (Bld) [#/Vol] 2.6 10*3/uL Normal 1.0-4.3 [facility] Comment on above: Performed By: #### C A19O, LUPUS #### The performing lab is in the report. #### NSEO #### [facility] #### HEMDF, LDH3, BMP3, MG3, PT, CEA2 #### [facility] [address] [place] #### B2GPM, B2GPA, B2GPG #### [address] Lymphocytes/100 WBC (Bld) 25.0 % Normal 20.0-40.0 [facility] Comment on above: Performed By: #### C A19O, LUPUS #### The performing lab is in the report. #### NSEO #### [facility] #### HEMDF, LDH3, BMP3, MG3, PT, CEA2 #### [facility] [address] [facility] [place] #### B2GPM, B2GPA, B2GPG #### [address] MCH (RBC) [Entitic mass] 28.4 pg Normal 26.0-34.0 [facility] Comment on above: Performed By: #### C A19O, LUPUS #### The performing lab is in the report. #### NSEO #### [facility] #### HEMDF, LDH3, BMP3, MG3, PT, CEA2 #### [address] [place], [place] #### B2GPM, B2GPA, B2GPG #### [address] MCHC 33.1 % Normal 32.0-36.0 [facility] Comment on above: Performed By: #### C A19O, LUPUS #### The performing lab is in the report. #### NSEO #### [facility] #### HEMDF, LDH3, BMP3, MG3, PT, CEA2 #### [address] [place], [place] #### B2GPM, B2GPA, B2GPG #### [address] MCV (RBC) [Entitic vol] 85.9 fL Normal 80.0-98.0 [facility] Comment on above: Performed By: #### C A19O, LUPUS #### The performing lab is in the report. #### NSEO #### [facility] #### HEMDF, LDH3, BMP3, MG3, PT, CEA2 #### [address] [place], [place] #### B2GPM, B2GPA, B2GPG #### [address] Monocytes (Bld) [#/Vol] 0.6 10*3/uL Normal 0.0-0.8 [facility] Comment on above: Performed By: #### C A19O, LUPUS #### The performing lab is in the report. #### NSEO #### [facility] #### HEMDF, LDH3, BMP3, MG3, PT, CEA2 #### [facility] [address] [place] #### B2GPM, B2GPA, B2GPG #### [address] Monocytes/100 WBC (Bld) 6.0 % Normal 2.0-10.0 [facility] Comment on above: Performed By: #### C A19O, LUPUS #### The performing lab is in the report. #### NSEO #### [facility] #### HEMDF, LDH3, BMP3, MG3, PT, CEA2 #### [facility] [address] [place] #### B2GPM, B2GPA, B2GPG #### [address] Platelet mean volume (Bld) [Entitic vol] 8.1 fL Normal 7.4-12.4 [facility] Comment on above: Result Comment: MPV is a calculated measurement using platelet volume ratio. Performed By: #### C A19O, LUPUS #### The performing lab is in the report. #### NSEO #### [facility] #### HEMDF, LDH3, BMP3, MG3, PT, CEA2 #### [facility] [address] [place] #### B2GPM, B2GPA, B2GPG #### [address] Platelets (Bld) [#/Vol] 450 10*3/uL High 140-440 [facility] Comment on above: Performed By: #### C A19O, LUPUS #### The performing lab is in the report. #### NSEO #### [facility] #### HEMDF, LDH3, BMP3, MG3, PT, CEA2 #### [facility] [address] [place] [address] #### B2GPM, B2GPA, B2GPG #### [address] RBC (Bld) [#/Vol] 4.08 10*6/uL Low 4.40-5.90 [facility] Comment on above: Performed By: #### C A19O, LUPUS #### The performing lab is in the report. #### NSEO #### [facility] #### HEMDF, LDH3, BMP3, MG3, PT, CEA2 #### [facility] [address] [place] #### B2GPM, B2GPA, B2GPG #### [address] WBC (Bld) [#/Vol] 10.3 10*3/uL Normal 3.6-10.7 [facility] Comment on above: Performed By: #### C A19O, LUPUS #### The performing lab is in the report. #### NSEO #### [facility] #### HEMDF, LDH3, BMP3, MG3, PT, CEA2 #### [facility] [address] [place] #### B2GPM, B2GPA, B2GPG #### [address] LDHon 10-23-2021 LDH 136 U/L Normal 120-246 [facility] Comment on above: Performed By: #### C A19O, LUPUS #### The performing lab is in the report. #### NSEO #### [facility] #### HEMDF, LDH3, BMP3, MG3, PT, CEA2 #### [employer] [facility] [address] [place] [address] #### B2GPM, B2GPA, B2GPG #### [employer] [facility] [address] [facility] [place] [address] Lactate Dehydrogenaseon 06- LD 136 U/L 120 - 246 U/L [facility] Work Phone: MRI ABDOMEN WO CONTRASTon Patient Name: ANDREW SIFUENTES Magnetic Resonance Imaging ACCESSION EXAM DATE/TIME PROCEDURE ORDERING PROVIDER [id number] 10/23/2021 11:08 EDT MRI Abdomen w/o Contrast SRIVASTAVAWING CPT code 51567 Reason For Exam (MRI Abdomen w/o Contrast) [...] Imaging ACCESSION EXAM DATE/TIME PROCEDURE ORDERING PROVIDER [id number] 10/23/2021 11:08 EDT MRI Abdomen w/o Contrast WING SRIVASTAVA CPT code 08644 Reason For Exam (MRI Abdomen w/o Contrast) [...] VLADIMIR Transcribed Date and Time: 10/23/2021 4:[address] [facility] Work Phone: MRI ABDOMEN WO CONTRASTOrder ed By: Unknown Result on 10-23-[address] [facility] MRI Abdomen w/o Contraston 0 10-23-2021 MRI Abdomen w/o Contrast Patient Name: ANDREW SIFUENTES Magnetic Resonance Imaging ACCESSION EXAM DATE/TIME PROCEDURE ORDERING PROVIDER [id number] 10/23/2021 11:08 EDT MRI Abdomen w/o Contrast WING SRIVASTAVA CPT code 78660 Reason For Exam (MRI Abdomen w/o Contrast) [...] Transcribed Date and Time: 10/23/2021 4:36 Normal [facility] Magnesiumon 10-23-2021 Magnesium [Mass/Vol] 2.1 mg/dL Normal 1.6-2.3 [facility] Comment on above: Performed By: #### C A19O, LUPUS #### The performing lab is in the report. #### NSEO #### [facility] #### HEMDF, LDH3, BMP3, MG3, PT, CEA2 #### [facility] [address] [place] [address] #### B2GPM, B2GPA, B2GPG #### [facility] [address] [place] [address] Magnesium [Mass/Vol] 2.1 mg/dL 1.6 - 2 .3 mg/dL [facility] Work Phone: No Panel Informationon 10-23 Test Performed by [facility], [address] [place], [place] [id number] [place] [address] [facility] Work Phone: Prothrombin Timeon 2 INR 1.1 Normal 0.9-1.1 [facility] Comment on above: Result Comment: Harry mmended [...] HEMDF, LDH3, BMP3, MG3, PT, CEA2 #### [address] [place] [address] #### B2GPM, B2GPA, B2GPG #### [address] [address] PT Coag (PPP) [Time] 12.2 s High 9.0-12.0 [facility] Comment on above: Result Comment: . Performed By: #### C A19O, LUPUS #### The performing lab is in the report. #### NSEO #### [facility] #### HEMDF, LDH3, BMP3, MG3, PT, CEA2 #### [address] [place] [address] #### B2GPM, B2GPA, B2GPG #### [address] [address] Protime-INRon 10-23-2021 INR Coag (Bld) [Relative time] 1.1 {INR} [facility] Work Phone: Comment on above: Recommended [...] 12.2 s High 9.0 - 12.[address] [facility] Work Phone: Comment on above: . Test Performed by [facility], [address] [place] [address] [facility] Work Phone: Basic Metabolic Panelon 10-05 Calcium [Mass/Vol] 8.9 mg/dL Normal 8.4-10.4 [facility] Comment on above: Performed By: #### P T #### [facility] [address] [place] [address] Glucose [Mass/Vol] 110 mg/dL High 70-100 [facility] Comment on above: Performed By: #### P T #### [facility] [address] [place] [address] Urea nitrogen [Mass/Vol] 14 mg/dL Normal 7-17 [facility] Comment on above: Performed By: #### P T #### [facility] [address] [place] [address] Anion gap [Moles/Vol] 7 mmol/L Normal 3-13 [facility] Comment on above: Performed By: #### P T #### [facility] [address] [place] [address] CO2 [Moles/Vol] 26 mmol/L Normal 22-30 [facility] Comment on above: Performed By: #### P T #### [facility] [address] [place] [address] Creatinine [Mass/Vol] 0.71 mg/dL Normal 0.52-1.25 [facility] Comment on above: Performed By: #### P T #### [facility] [address] [place] [address] eGFR OTHER > 90.0 Normal >60 [facility] Comment on above: Result Comment: KDIG O [...] secretion. Performed By: #### P T #### [facility] [address] [place] [address] GFR/1.73 sq M.predicted among blacks MDRD (S/P/Bld) [Vol rate/Area] mL/min/{1.73_m2} Normal >60 [facility] Comment on above: Performed By: #### P T #### [facility] [address] [place] [address] Potassium [Moles/Vol] 3.8 mmol/L Normal 3.5-5.1 [facility] Comment on above: Performed By: #### P T #### [facility] [address] [place] [address] Chloride [Moles/Vol] 106 mmol/L Normal 98-107 [facility] Comment on above: Performed By: #### P T #### [facility] [address] [place] [address] Sodium [Moles/Vol] 139 mmol/L Normal 135-145 [facility] Comment on above: Performed By: #### P T #### [facility] [address] [place] [address] Anion gap [Moles/Vol] 7 mmol/L 3 - 13 mmol/L [facility] Calcium [Mass/Vol] 8.9 mg/dL 8.4 - 10. 4 mg/dL [facility] Chloride [Moles/Vol] 106 mmol/L 98 - 10 7 mmol/L [facility] CO2 [Moles/Vol] 26 mmol/L 22 - 30 mmol/L [facility] Creatinine [Mass/Vol] 0.71 mg/dL 0.52 - 1.25 mg/dL [facility] EGFR IF NonAfrican Kittitian >90.0 >60 mL/min [facility] Comment on above: KDIGO guidelines pro [...] - 10.7 10*3/uL [facility] Test Performed by [facility], [address] [place], [place] [address] [place] [address] [facility] [address] [facility] Pelvis Wo Contras ton 10-22-2021 Patient Name: ANDREW SIFUENTES Computed Tomography ACCESSION EXAM DATE/TIME PROCEDURE ORDERING PROVIDER [id number] 10/22/2021 13:[address] Abdomen/Pelvis (No SRIVASTAVA, WING PO, No IV) CPT code 91993 Reason For Exam (CT Abdomen/Pelvis (No PO, [...] HARLAN Transcribed Date and Time: 10/22/2021 2:37 [facility] Humphrey Melton MD - 10/22/2021 Patient Name: ANDREW SIFUENTES Computed Tomography ACCESSION EXAM DATE/TIME PROCEDURE ORDERING PROVIDER [id number] 10/22/2021 13:[address] Abdomen/Pelvis (No SRIVASTAVA, WING PO, No IV) CPT code 64689 Reason For Exam (CT Abdomen/Pelvis (No PO, [...] Tomography ACCESSION EXAM DATE/TIME PROCEDURE ORDERING PROVIDER [id number] 10/22/2021 13:[address] Abdomen/Pelvis (No SRIVASTAVA, WING PO, No IV) CPT code 54650 Reason For Exam (CT Abdomen/Pelvis (No PO, [...] Transcribed Date and Time: 10/22/2021 2:37 Normal [facility] Hemogram w/ Autodiffon 10-22 Abs Baso Cnt 0.1 10*3/uL Normal 0.0-0.2 [facility] Comment on above: Performed By: #### P T #### [facility] [address] [place] [address] Abs Neutrophile Cnt 6.0 10*3/uL Normal 1.8-7.0 [facility] Comment on above: Performed By: #### P T #### [facility] [address] [place] [address] Basophils/100 WBC (Bld) 1.0 % Normal 0.0-2.0 [facility] Comment on above: Performed By: #### P T #### [facility] [address] [place] [address] Eosinophils (Bld) [#/Vol] 0.3 10*3/uL Normal 0.0-0.5 [facility] Comment on above: Performed By: #### P T #### [facility] [address] [place] [address] Eosinophils/100 WBC (Bld) 3.0 % Normal 1.0-6.0 [facility] Comment on above: Performed By: #### P T #### [facility] [address] [place] [address] Erythrocyte distribution width (RBC) [Ratio] 17.1 % High 11.5-14.5 [facility] Comment on above: Performed By: #### P T #### [facility] [address] [place] [address] Granulocytes/100 WBC (Bld) 64.1 % Normal 40.0-80.0 [facility] Comment on above: Performed By: #### P T #### [facility] [address] [place] [address] Hematocrit (Bld) [Volume fraction] 33.4 % Low 40.0-52.0 [facility] Comment on above: Performed By: #### P T #### [facility] [address] [place] [address] Hemoglobin (Bld) [Mass/Vol] 10.9 g/dL Low 13.0-18.0 [facility] Comment on above: Performed By: #### P T #### [facility] [address] [place] [address] Lymphocytes (Bld) [#/Vol] 2.5 10*3/uL Normal 1.0-4.3 [facility] Comment on above: Performed By: #### P T #### [facility] [address] [place] [address] Lymphocytes/100 WBC (Bld) 26.3 % Normal 20.0-40.0 [facility] Comment on above: Performed By: #### P T #### [facility] [address] [place] [address] MCH (RBC) [Entitic mass] 28.2 pg Normal 26.0-34.0 [facility] Comment on above: Performed By: #### P T #### [facility] [address] [place] [address] MCHC 32.7 % Normal 32.0-36.0 [facility] Comment on above: Performed By: #### P T #### [facility] [address] [place] [address] MCV (RBC) [Entitic vol] 86.3 fL Normal 80.0-98.0 [facility] Comment on above: Performed By: #### P T #### [facility] [address] [place] [address] Monocytes (Bld) [#/Vol] 0.5 10*3/uL Normal 0.0-0.8 [facility] Comment on above: Performed By: #### P T #### [facility] [address] [place] [address] Monocytes/100 WBC (Bld) 5.6 % Normal 2.0-10.0 [facility] Comment on above: Performed By: #### P T #### [facility] [address] [place] [address] Platelet mean volume (Bld) [Entitic vol] 7.6 fL Normal 7.4-12.4 [facility] Comment on above: Result Comment: MPV is a calculated measurement using platelet volume ratio. Performed By: #### P T #### [facility] [address] [place] [address] Platelets (Bld) [#/Vol] 369 10*3/uL Normal 140-440 [facility] Comment on above: Performed By: #### P T #### [facility] [address] [place] [address] RBC (Bld) [#/Vol] 3.87 10*6/uL Low 4.40-5.90 [facility] Comment on above: Performed By: #### P T #### [facility] [address] [place] [address] WBC (Bld) [#/Vol] 9.4 10*3/uL Normal 3.6-10.7 [facility] Comment on above: Performed By: #### P T #### [facility] [address] [place] [address] Magnesiumon 10-22-2021 Magnesium [Mass/Vol] 2.0 mg/dL Normal 1.6-2.3 [facility] Comment on above: Performed By: #### P T #### [facility] [address] [place] [address] Magnesium [Mass/Vol] 2.0 mg/dL 1.6 - 2 .3 mg/dL [facility] No Panel Informationon 10-22 Radiology Study observation (narrative) [facility] Work Phone: Test Performed by [facility], [address] [place] [address] [facility] Prothrombin Timeon 2 INR 1.1 Normal 0.9-1.1 [facility] Comment on above: Result Comment: Harry mmended [...] LDH3, BMP3, MG3, PT, CEA2 #### [facility] [address] [place] [address] #### B2GPM, B2GPA, B2GPG #### [facility] [address] [place] [address] PT Coag (PPP) [Time] 11.8 s Normal 9.0-12.0 [facility] Comment on above: Result Comment: . Performed By: #### C A19O, LUPUS #### The performing lab is in the report. #### NSEO #### [facility] #### HEMDF, LDH3, BMP3, MG3, PT, CEA2 #### [facility] [address] [place] [address] #### B2GPM, B2GPA, B2GPG #### [facility] [address] [place] [address] Protime-INRon 10-22-2021 INR Coag (Bld) [Relative time] 1.1 {INR} [facility] Work Phone: Comment on above: Recommended [...] [Time] 11.8 s 9.0 - 12.[address] [facility] Work Phone: Comment on above: . Test Performed by [facility], [address], [place], [place] [address] [facility] Work Phone: VL Ankle Art Brachial Indice s Extremity Bilateralon 10-22-2021 [facility] Ankle Brachial Index Report Patient DO GurpreetB: 1950 Study 10/21/2021 Name: Andrew Gonzalez (71yrs) Date: Age: 71 Account: [id number] Gender: M Loc: 444W BP: Ordering Physician: [employer]ruthi [employer] Psychometrist: Rody Cross RDMS, RVT Interpreting Physician: Carina Call Location: [facility] Indications: Foot wounds. Originally ordered as a full PVR. Ordering SCRAP HOIST OPERATOR had to modify the order to [...] supine position. Images were obtained using a [employer] vascular ultrasound machine. Arterial pressure indices: + [...] electronically signed by Carina Call 10/22/2021 13:21 [facility] Carina Call MD - 10/22/2021 [facility] Ankle Brachial Index Report Patient DO GurpreetB: 1950 Study 10/21/2021 Name: Andrew Gonzalez () Date: Age: 71 Account: [id number] Gender: M Loc: 444W BP: Ordering Physician: Shruthi [employer] Psychometrist: Rody Cross RDMS RVJamison Interpreting Physician: Carina Call Location: [facility] Indications: Foot wounds. Originally ordered as a full PVR. Ordering SCRAP HOIST OPERATOR had to modify the order to [...] supine position. Images were obtained using a [employer] vascular ultrasound machine. Arterial pressure indices: + [...] electronically signed by Carina Call 10/22/2021 13:21 [facility] Work Phone: [employer] Work Phone: Basic Metabolic Panelon 10-05 Calcium [Mass/Vol] 9.1 mg/dL Normal 8.4-10.4 [facility] Comment on above: Performed By: #### C OVAG #### [employer] [address] [place] [address] Anion gap [Moles/Vol] 6 mmol/L Normal 3-13 [facility] Comment on above: Performed By: #### C OVAG #### [employer] [address] [place] [address] CO2 [Moles/Vol] 29 mmol/L Normal 22-30 [facility] Comment on above: Performed By: #### C OVAG #### [facility] [employer] [address] [place] [address] Creatinine [Mass/Vol] 0.90 mg/dL Normal 0.52-1.25 [facility] Comment on above: Performed By: #### C OVAG #### [facility] [address] [place] [address] GFR/1.73 sq M.predicted among blacks MDRD (S/P/Bld) [Vol rate/Area] mL/min/{1.73_m2} Normal >60 [facility] Comment on above: Performed By: #### C OVAG #### [facility] [address] [place] [address] GFR/1.73 sq M.predicted among non-blacks MDRD (S/P/Bld) [Vol rate/Area] 86.6 mL/min/{1.73_m2} Normal >60 [facility] Comment on above: Result Comment: KDIG O [...] secretion. Performed By: #### C OVAG #### [facility] [address] [place] [address] Glucose [Mass/Vol] 106 mg/dL High 70-100 [facility] Comment on above: Performed By: #### C OVAG #### [facility] [address] [place] [address] Urea nitrogen [Mass/Vol] 18 mg/dL High 7-17 [facility] Comment on above: Performed By: #### C OVAG #### [facility] [address] [place] [address] Chloride [Moles/Vol] 105 mmol/L Normal 98-107 [facility] Comment on above: Performed By: #### C OVAG #### [facility] [address] [place] [address] Potassium [Moles/Vol] 4.3 mmol/L Normal 3.5-5.1 [facility] Comment on above: Performed By: #### C OVAG #### [facility] [address] [place] [address] Sodium [Moles/Vol] 139 mmol/L Normal 135-145 [facility] Comment on above: Performed By: #### C OVAG #### [facility] [address] [place] [address] Anion gap [Moles/Vol] 6 mmol/L 3 - 13 mmol/L [facility] Calcium [Mass/Vol] 9.1 mg/dL 8.4 - 10. 4 mg/dL [facility] Chloride [Moles/Vol] 105 mmol/L 98 - 10 7 mmol/L [facility] CO2 [Moles/Vol] 29 mmol/L 22 - 30 mmol/L [facility] Creatinine [Mass/Vol] 0.9 mg/dL 0.52 - 1.25 mg/dL [facility] EGFR IF NonAfrican Kitt[place] 86.6 mL/min >60 [facility] Comment on above: KDIGO guidelines pro [...] - 17 mg/dL [facility] Test Performed by [facility], [address], [address] LAB [facility] C-Reactive Proteinon 022 CRP [Mass/Vol] 33.5 mg/L High 0.0-9.9 [facility] Comment on above: Result Comment: . Performed By: #### P T #### [facility] [address] [place] [address] CRP [Mass/Vol] 33.5 mg/L High 0.0 - 9.9 mg/L [facility] Comment on above: . Interpretation and review of laboratory results Abnormal [facility] Test Performed by [facility], [address] [place], [address] LAB [facility] CR Calcaneus 2+ Views Lefton 10-21-2021 CR Calcaneus 2+ Views Left Patient Name: ANDREW SIFUENTES Diagnostic Radiology ACCESSION EXAM DATE/TIME PROCEDURE ORDERING PROVIDER [id number] 10/21/2021 15:30 EDT CR Calcaneus 2+ Views [id number] -SHRUTHI MALIK Left CPT code 85758 Reason For Exam (CR Calcaneus 2+ Views [...] Transcribed Date and Time: 10/21/2021 4:33 Normal [facility] CR Chest 1 View Frontalon CR Chest 1 View Frontal [id number] Radiology ACCESSION EXAM DATE/TIME PROCEDURE ORDERING PROVIDER [id number] 10/21/2021 08:16 EDT CR Chest 1 View Frontal [id number] MAY BOGGS CPT code 88826 Reason For Exam (CR Chest 1 View [...] Transcribed Date and Time: 10/21/2021 8:33 Normal [facility] D-Dimer, Innovanceon 022 D-Dimer, Innovance 1.51 mg/L High <0.19-0.50 [facility] Comment on above: Result Comment: Inno saba D-Dimer values of <0.50 mg/L FEU can be used in combination with a pre-test probability model (e.g. Well's) to exclude pulmonary embolism (PE) disease, as well as an aid in the diagnosis of deep vein thrombosis (DVT). Performed By: #### P T #### [facility] [address] [place] [address] D-Dimer, Quantitativeon 10-05 D-Dimer, Quant 1.51 mg/L High <0.19 - 0.[address] [facility] Comment on above: [facility] D-Dimer va lues of <0.50 mg/L FEU can be used in combination with a pre-test probability model (e.g. Well's) to exclude pulmonary embolism (PE) disease, as well as an aid in the diagnosis of deep vein thrombosis (DVT). Interpretation and review of laboratory results Abnormal [facility] Test Performed by [facility], [address], [place], [place] [address] [facility] ED Provider Noteon 2 ED Provider Note [facility] ED EMERGENCY DEPARTMENT ENCOUNTER Pt [...] (HCC) ? Kidney stone ? Neuropathy ? SMALL BATTERY PLATE ASSEMBLER (ventriculoperitoneal) shunt status SURGICAL HISTORY Past Surgical [...] and Family: Not on file ? Attends Caodaism Services: Not on file ? Active Member [...] LUNGS: Respirations (more content not included)... Normal [facility] Hemogramon 10-21-2021 Erythrocyte distribution width (RBC) [Ratio] 17.3 % High 11.5-14.5 [facility] [employer] Comment on above: Performed By: #### C OVAG #### [facility] [address] [place] [address] Hematocrit (Bld) [Volume fraction] 33.6 % Low 40.0-52.0 [facility] Comment on above: Performed By: #### C OVAG #### [facility] [address] [place] [address] Hemoglobin (Bld) [Mass/Vol] 10.9 g/dL Low 13.0-18.0 [facility] Comment on above: Performed By: #### C OVAG #### [facility] [address] [place] [address] MCH (RBC) [Entitic mass] 27.8 pg Normal 26.0-34.0 [facility] Comment on above: Performed By: #### C OVAG #### [facility] [address] [place] [address] MCHC 32.5 % Normal 32.0-36.0 [facility] Comment on above: Performed By: #### C OVAG #### [facility] [address] [place] [address] MCV (RBC) [Entitic vol] 85.6 fL Normal 80.0-98.0 [facility] Comment on above: Performed By: #### C OVAG #### [facility] [address] [place] [address] Platelet mean volume (Bld) [Entitic vol] 7.7 fL Normal 7.4-12.4 [facility] Comment on above: Result Comment: MPV is a calculated measurement using platelet volume ratio. Performed By: #### C OVAG #### [facility] [address] [place] [address] Platelets (Bld) [#/Vol] 404 10*3/uL Normal 140-440 [facility] Comment on above: Performed By: #### C OVAG #### [facility] [address] [place] [address] RBC (Bld) [#/Vol] 3.93 10*6/uL Low 4.40-5.90 [facility] Comment on above: Performed By: #### C OVAG #### [facility] [address] [place] [address] WBC (Bld) [#/Vol] 11.6 10*3/uL High 3.6-10.7 [facility] Comment on above: Performed By: #### C OVAG #### [facility] [address] [place] [address] Hemogram (CBC)on 10-21-2021 Hematocrit (Bld) [Volume fraction] 33.6 % Low 40.0 - 52.0 % [facility] Hemoglobin (Bld) [Mass/Vol] 10.9 g/dL Low 13.0 - 18.0 g/dL [facility] Interpretation and review of laboratory results [...] vol] 7.7 fL 7.4 - 12.4 fL [facility] Comment on above: MPV is a calculated measurement using platelet volume ratio. Platelets (Bld) [#/Vol] 404 10*3/uL 140 - 440 10*3/uL [facility] RBC (Bld) [#/Vol] 3.93 10*6/uL Low 4.40 - 5.9 0 10*6/uL [facility] WBC (Bld) [#/Vol] 11.6 10*3/uL High 3.6 - 10.7 10*3/uL [facility] Test Performed by [facility], [address], [place], [place] [address] [facility] NM LUNG VENT/PERFUSION (VQ)o n 10-21-2021 Patient Name: ANDREW SIFUENTES Nuclear Medicine ACCESSION EXAM DATE/TIME PROCEDURE ORDERING PROVIDER [id number] 10/21/2021 07:55 EDT NM Pulmonary Perfusion [id number] MAY BOGGS w/ Vent Aerosol CPT code 26628 A9567 Reason For Exam (NM Pulmonary Perfusion [...] Medicine ACCESSION EXAM DATE/TIME PROCEDURE ORDERING PROVIDER [id number] 10/21/2021 07:55 EDT NM Pulmonary Perfusion [id number] MAY BOGGS w/ Vent Aerosol CPT code 74830 A9567 Reason For Exam (NM Pulmonary Perfusion [...] JOHN Transcribed Date and Time: 10/21/2021 8:[address] [facility] Work Phone: NM LUNG VENT/PERFUSION (VQ)O rdered By: Henry Harvey on 10-21-[address] [facility] Work Phone: NM Pulmonary Perfusion w/ Ve nt Aerosol or Gason 10-21-2021 NM Pulmonary Perfusion w/ Vent Aerosol or Gas Patient Name: ANDREW SIFUENTES Nuclear Medicine ACCESSION EXAM DATE/TIME PROCEDURE ORDERING PROVIDER [id number] 10/21/2021 07:55 EDT NM Pulmonary Perfusion [id number] MAY BOGGS w/ Vent Aerosol CPT code 61633 A9567 Reason For Exam (NM Pulmonary Perfusion [...] Transcribed Date and Time: 10/21/2021 8:49 Normal [facility] No Panel Informationon 10-21 Radiology Study observation (narrative) [facility] Work Phone: Prothrombin Timeon 2 INR 1.1 Normal 0.9-1.1 [facility] Comment on above: Result Comment: Harry mmended [...] Infarction Performed By: #### C OVAG #### [facility] [address] [place] [address] PT Coag (PPP) [Time] 11.5 s Normal 9.0-12.0 [facility] Comment on above: Result Comment: . Performed By: #### C OVAG #### [facility] [address] [place] [address] Protime-INRon 10-21-2021 INR Coag (Bld) [Relative time] 1.1 {INR} [facility] Comment on above: Recommended Anticoag ulant [...] [Time] 11.5 s 9.0 - 12.[address] [facility] Comment on above: . Test Performed by [facility], [address] LAB [facility] Retic Count(%)on 10-21-2021 Retic Count(%) 1.6 Normal [facility] Comment on above: Result Comment: Newb orn < 5% Adults 0.5 - 1.5% Performed By: #### P T #### [facility] [address] [place] [address] Reticulocyteson 10-21-[address] Pct 1.[address] [facility] Comment on above: < 5% Adults 0.5 - 1.5% Test Performed by [facility], [address] LAB [facility] Sed Rateon 10-21-2021 Sed Rate 63 mm/h High 0-10 [facility] Comment on above: Performed By: #### P T #### [facility] [address] [place] [address] Sedimentation Rateon 022 Interpretation and review of laboratory results Abnormal [facility] Sed Rate 63 mm/h High 0 - 10 mm/h [facility] Test Performed by [facility], [address], [place], [place] [address] [facility] VL CARMELLA Upr/L Extremity Art 1 -2 Levelson 10-21-2021 VL CARMELLA Upr/L Extremity Art 1-2 Levels Patient Name: ANDREW SIFUENTES Ultrasound ACCESSION EXAM DATE/TIME PROCEDURE ORDERING PROVIDER [id number] 10/21/2021 16:12 EDT VL Upr/L Extremity Art 277129 -SHRUTHI MALIK 1-2 Levels CPT code 87585 Reason For Exam (VL Upr/L Extremity Art 1-2 Levels) both lower legs CARMELLA for both feet wounds. Report [facility] Ankle Brachial Index Report Patient DO GurpreetB: 1950 Study 10/21/2021 Name: Andrew Gonzalez (71yrs) Date: Age: 71 Account: [id number] Gender: M Loc: 444W BP: Ordering Physician: Shruthi [employer] Psychometrist: Rody Cross RDMS, RVT Interpreting Physician: Carina Call Location: [facility] Indications: Foot wounds. Originally ordered as a full PVR. Ordering SCRAP HOIST OPERATOR had to modify the order to [...] supine position. Images were obtained using a [employer] vascular ultrasound machine. Arterial pressure indices: + [...] CARINA HENNESSY Cardiovascular ACCESSION EXAM DATE/TIME PROCEDURE [id number] 10/21/2021 16:12 EDT VL Upr/L Extremity Art 1-2 Levels CPT code 74855 Reason For Exam (VL Upr/L Extremity Art 1-2 Levels) both lower legs CARMELLA for both feet wounds. Report [facility] Ankle Brachial Index Report Patient DO GurpreetB: 1950 Study 10/21/2021 Name: Andrew Gonzalez (71yrs) Date: Age: 71 Account: [id number] Cardiovascular Report Gender: M Loc: 444W BP: Ordering Physician: Shruthi [employer] Psychometrist: Rody Cross RDMS, RVT Interpreting Physician: Carina Call Location: [facility] Indications: Foot wounds. Originally ordered as a full PVR. Ordering SCRAP HOIST OPERATOR had to modify the order to [...] th (more content not included)... Normal [facility] VL LOWER EXTREMITY BILATERAL VENOUS DUPLEXon 10-21-2021 [facility] Lower Extremity Venous Duplex Report Patient DO GurpreetB: 1950 Study 10/21/2021 Name: Andrew Gonzalez (71yrs) Date: Age: 71 Account: [id number] Gender: M Loc: 444 BP: Ordering Physician: May Cash [employer] Psychometrist: Rody Cross RDMS, RVT Interpreting Physician: Carina Call Location: [facility] Indications: Bilateral lower leg edema. CRITICAL [...] supine position. Images were obtained using a [employer] vascular ultrasound machine. Venous flow and imaging: [...] +-------- --------+ + (more content not included)... [facility] Carina Call MD - 10/21/2021 [facility] Lower Extremity Venous Duplex Report Patient DO GurpreetB: 1950 Study 10/21/2021 Name: Andrew Gonzalez (71yrs) Date: Age: 71 Account: [id number] Gender: M Loc: 444 BP: Ordering Physician: May [employer] Psychometrist: Rody Cross RDMS, RVT Interpreting Physician: Carina Call Location: [facility] Indications: Bilateral lower leg edema. CRITICAL [...] supine position. Images were obtained using a [employer] vascular ultrasound machine. Venous flow and imaging: [...] + + +----- (more content not included)... [employer] Work Phone: VL LOWER EXTREMITY BILATERAL VENOUS DUPLEXOrdered By: Carina Call on 10-21-2021 [employer] Work Phone: VL Venous Duplex US Lower Ex t Bilateralon 10-21-2021 VL Venous Duplex US Lower Ext Bilateral Patient Name: ANDREW SIFUENTES Ultrasound ACCESSION EXAM DATE/TIME PROCEDURE ORDERING PROVIDER [id number] 10/21/2021 09:53 EDT VL Venous Duplex US [id number] -MAY CASH Lower Ext Bilateral CPT code 39964 Reason For Exam (VL Venous Duplex US Lower Ext Bilateral) bilateral sqwelling redness Report [facility] Lower Extremity Venous Duplex Report Patient DO GurpreetB: 1950 Study 10/21/2021 Name: Andrew Gonzalez (71yrs) Date: Age: 71 Account: [id number] Gender: M Loc: 444 BP: Ordering Physician: May Cash [employer] Psychometrist: Rody Cross RDMS, RVT Interpreting Physician: Carina Call Location: [facility] Indications: Bilateral lower leg edema. CRITICAL [...] supine position. Images were obtained using a [employer] vascular ultrasound machine. Venous flow and imaging: [...] + + (more content not included)... Normal [facility] XR CALCANEUS LEFT (MIN 2 VIE WS)on 10-21-2021 Patient Name: ANDREW SIFUENTES Diagnostic Radiology ACCESSION EXAM DATE/TIME PROCEDURE ORDERING PROVIDER [id number] 10/21/2021 15:30 EDT CR Calcaneus 2+ Views [id number] -SHRUTHI MALIK Left CPT code 92942 Reason For Exam (CR Calcaneus 2+ Views [...] Radiology ACCESSION EXAM DATE/TIME PROCEDURE ORDERING PROVIDER [id number] 10/21/2021 15:30 EDT CR Calcaneus 2+ Views [id number] -SHRUTHI MALIK Left CPT code 23450 Reason For Exam (CR Calcaneus 2+ Views [...] J Transcribed Date and Time: 10/21/2021 4:[address] [facility] Work Phone: XR CALCANEUS LEFT (MIN 2 VIE WS)Ordered By: Alan Wong on 10-21-[address] [facility] Work Phone: XR Chest 1 VWon 10-21-2021 Patient Name: ANDREW SIFUENTES Diagnostic Radiology ACCESSION EXAM DATE/TIME PROCEDURE ORDERING PROVIDER [id number] 10/21/2021 08:16 EDT CR Chest 1 View Frontal [id number] MAY BOGGS CPT code 91266 Reason For Exam (CR Chest 1 View [...] OSAMA Transcribed Date and Time: 10/21/2021 8:33 [facility] Venus Loyd MD - 10/21/2021 Patient Name: ANDREW SIFUENTES Diagnostic Radiology ACCESSION EXAM DATE/TIME PROCEDURE ORDERING PROVIDER [id number] 10/21/2021 08:16 EDT CR Chest 1 View Frontal [id number] FOSTER CPT code 02194 Reason For Exam (CR Chest 1 View [...] RAMOS Transcribed Date and Time: 10/21/2021 8:[address] [facility] Work Phone: XR Chest 1 VWOrdered By: Natalie Loyd on 10-21-2021 [facility] Work Phone: Basophil percentageon 2021 Chloride [Moles/Vol] 108 mmol/L 98-107 [facility] Work Phone: Glucose [Mass/Vol] 93 mg/dL 74-106 [facility] Work Phone: [phone] Potassium [Moles/Vol] 3.9 mmol/L 3.5-5.1 [facility] Work Phone: Sodium [Moles/Vol] 140 mmol/L 136-145 [facility] Work Phone: WBC (Bld) [#/Vol] 8.7 10*3/uL 4.4-11.0 [facility] Work Phone: Blood erythrocytes count (nu mber/volume)on 10-20-2021 RBC (Bld) [#/Vol] 3.63 10*6/uL 4.6-6.2 [facility] Work Phone: Blood hemoglobin measurement (mass/volume)on 10-20-2021 Hemoglobin (Bld) [Mass/Vol] 10.1 g/dL 13.0-16.5 [facility] Work Phone: Blood platelet mean volumeon 10-20-2021 Platelet mean volume (Bld) [Entitic vol] 9.8 fL 6.2-12.0 [facility] Work Phone: Determination of erythrocyte mean corpuscular volume (MCV)on 10-20-2021 MCV (RBC) [Entitic vol] 90.1 fL 80-94 [facility] Work Phone: Hematocrit Auto (Bld) [Volum e fraction]on 10-20-2021 Hematocrit (Bld) [Volume fraction] 32.7 % 40-54 [facility] Work Phone: Laboratory - Chemistry and C hemistry - challengeon 10-20-2021 CO2 [Moles/Vol] 25.0 mmol/L 21.0-32.0 [facility] Work Phone: Urea nitrogen/Creatinine [Mass ratio] 17.4 mg/mg 10-20 [facility] Work Phone: Laboratory - Hematology and Cell countson 10-20-2021 Erythrocyte distribution width (RBC) [Entitic vol] 52.1 fL 35.1-43.9 [facility] Work Phone: Erythrocyte distribution width (RBC) [Ratio] 15.6 % 11.6-14.6 [facility] Work Phone: MCH (RBC) [Entitic mass] 27.8 pg 27.0-32.0 [facility] Work Phone: MCHC Auto (RBC) [Mass/Vol]on 10-20-2021 MCHC (RBC) [Mass/Vol] 30.9 g/dL 32-36 [facility] Work Phone: No Panel Informationon 10-20 Estimated GFR (MDRD) Amer 133 mL/min >60 [facility] Work Phone: Comment on above: GFR Calc Estimated GFR (MDRD) Non-Af Amer 110 mL/min >60 [facility] Work Phone: Comment on above: Non- GFR Calc Platelets bldon 10-20-2021 Platelets (Bld) [#/Vol] 404 10*3/uL 150-450 [facility] Work Phone: Serum or plasma calcium oral urement (mass/volume)on 10-20-2021 Calcium [Mass/Vol] 9.1 mg/dL 8.5-10.1 [facility] Work Phone: Serum or plasma creatinine m easurement (mass/volume)on 10-20-2021 Creatinine [Mass/Vol] 0.75 mg/dL 0.70-1.30 [facility] Work Phone: Comment on above: The validity of the calculated GFR & GFRAA in patients over 70 years has not been determined. Clinical correlation is essential. Serum or plasma urea nitroge n measurement (mass/volume)on 10-20-2021 Urea nitrogen [Mass/Vol] 13 mg/dL 7-18 [facility] Work Phone: Thin prep Papanicolaou smear with manual screeningon 10-20-2021 Thin prep Papanicolaou smear with manual screening 7 5-15 [facility] Work Phone: CNPNon 10-17-2021 CNPN Normal [facility] Absolute lymphocyte counton 09-19-2021 Lymphocytes Auto (Unsp spec) [#/Vol] 1.74 10*3/uL 0.83-4.51 [facility] Work Phone: Basophil percentageon 2021 Basophils/100 WBC (Bld) 0.6 % 0-1 [facility] Work Phone: Bilirubin [Mass/Vol] 0.30 mg/dL 0.20-1.00 [facility] Work Phone: Comment on above: For patients on eltr ombopag therapy, use of [employer]ension [place] TBIL is not recommended. Chloride [Moles/Vol] 105 mmol/L 98-107 [facility] Work Phone: Eosinophils/100 WBC (Bld) 3.5 % 0-5 [facility] Work Phone: [phone] Glucose [Mass/Vol] 91 mg/dL 74-106 [facility] Work Phone: Neutrophils (Bld) [#/Vol] 4.2 10*3/uL 2.0-7.7 [facility] Work Phone: Neutrophils/100 WBC (Bld) 62.6 % 47-70 [facility] Work Phone: Potassium [Moles/Vol] 3.8 mmol/L 3.5-5.1 [facility] Work Phone: Protein [Mass/Vol] 6.3 g/dL 6.4-8.2 [facility] [facility] [place] Work Phone: Sodium [Moles/Vol] 139 mmol/L 136-145 [facility] Work Phone: WBC (Bld) [#/Vol] 6.6 10*3/uL 4.4-11.0 [facility] [place] Work Phone: [phone] Blood erythrocytes count (nu mber/volume)on 09-19-2021 RBC (Bld) [#/Vol] 3.47 10*6/uL 4.6-6.2 [facility] Work Phone: Blood hemoglobin measurement (mass/volume)on 09-19-2021 Hemoglobin (Bld) [Mass/Vol] 10.2 g/dL 13.0-16.5 [facility] Work Phone: Blood lymphocytes/100 leukoc yteson 09-19-2021 Lymphocytes/100 WBC (Bld) 26.2 % 19-41 [facility] Work Phone: [phone] Blood monocytes/100 leukocyt eson 09-19-2021 Monocytes/100 WBC (Bld) 6.5 % 0-10 [facility] Work Phone: Blood platelet mean volumeon 09-19-2021 Platelet mean volume (Bld) [Entitic vol] 9.6 fL 6.2-12.0 [facility] Work Phone: Determination of erythrocyte mean corpuscular volume (MCV)on 09-19-2021 MCV (RBC) [Entitic vol] 94.8 fL 80-94 [facility] Work Phone: Hematocrit Auto (Bld) [Volum e fraction]on 09-19-2021 Hematocrit (Bld) [Volume fraction] 32.9 % 40-54 [facility] Work Phone: Laboratory - Chemistry and C hemistry - challengeon 09-19-2021 ALP [Catalytic activity/Vol] 109 U/L 45-117 [facility] Work Phone: ALT [Catalytic activity/Vol] 23 U/L 16-61 [facility] Work Phone: CO2 [Moles/Vol] 26.0 mmol/L 21.0-32.0 [facility] Work Phone: Globulin (S) [Mass/Vol] 3.5 g/dL 2.2-4.2 [facility] Work Phone: Urea nitrogen/Creatinine [Mass ratio] 15.3 mg/mg 10-20 [facility] Work Phone: Laboratory - Hematology and Cell countson 09-19-2021 Erythrocyte distribution width (RBC) [Entitic vol] 59.4 fL 35.1-43.9 [facility] Work Phone: Erythrocyte distribution width (RBC) [Ratio] 17.1 % 11.6-14.6 [facility] Work Phone: Immature granulocytes/100 WBC (Bld) 0.600 % 0.0-0.9 [facility] Work Phone: Comment on above: IG% - Immature Granu locytes (promyelocytes, myelocytes and metamyelocytes) > 1% indicates that a LEFT SHIFT is Present. MCH (RBC) [Entitic mass] 29.4 pg 27.0-32.0 [facility] Work Phone: Nucleated RBC/100 WBC (Bld) [Ratio] 0 % 0-5 [facility] Work Phone: MCHC Auto (RBC) [Mass/Vol]on 09-19-2021 MCHC (RBC) [Mass/Vol] 31.0 g/dL 32-36 [facility] Work Phone: No Panel Informationon 09-19 Estimated GFR (MDRD) Amer 175 mL/min >60 [facility] Work Phone: Comment on above: GFR Calc Estimated GFR (MDRD) Non-Af Amer 145 mL/min >60 [facility] Work Phone: Comment on above: Non- GFR Calc Platelets bldon 09-19-2021 Platelets (Bld) [#/Vol] 342 10*3/uL 150-450 [facility] Work Phone: Serum or plasma albumin oral urement (mass/volume)on 09-19-2021 Albumin [Mass/Vol] 2.8 g/dL 3.2-5.0 [facility] [place] Work Phone: Serum or plasma albumin/glob ulin mass ratioon 09-19-2021 Albumin/Globulin [Mass ratio] 0.8 {ratio} 0.9-2.4 [facility] Work Phone: Serum or plasma calcium oral urement (mass/volume)on 09-19-2021 Calcium [Mass/Vol] 9.0 mg/dL 8.5-10.1 [facility] [place] Work Phone: Serum or plasma creatinine m easurement (mass/volume)on 09-19-2021 Creatinine [Mass/Vol] 0.59 mg/dL 0.70-1.30 [facility] Work Phone: Comment on above: The validity of the calculated GFR & GFRAA in patients over 70 years has not been determined. Clinical correlation is essential. Serum or plasma urea nitroge n measurement (mass/volume)on 09-19-2021 Urea nitrogen [Mass/Vol] 9 mg/dL 7-18 [facility] Work Phone: Thin prep Papanicolaou smear with manual screeningon 09-19-2021 Thin prep Papanicolaou smear with manual screening 12 U/L 15-37 [facility] Work Phone: Thin prep Papanicolaou smear with manual screening 8 5-15 [facility] Work Phone: OPERATIVE NOon 08-22-2021 OPERATIVE NO Normal [facility] Basic metabolic 2000 panelon 08-19-2021 Anion gap [Moles/Vol] 10 mmol/L Normal 9-18 [facility] Comment on above: Order Comment: Speci men Type: BLOOD SPECIMENOrdering Facility: [facility] Address: [address] [address] Performed By: #### 2 4321-2 ####[facility] LABORATORYCLIA [id number] [address] [place] Calcium [Mass/Vol] 8.6 mg/dL Normal 8.5-10.2 [facility] Comment on above: Order Comment: Speci men Type: BLOOD SPECIMENOrdering Facility: [facility] Address: [address] [place] [address] Performed By: #### 2 4321-2 ####[facility] LABORATORYCLIA [id number] [place] [address] [place] Chloride [Moles/Vol] 99 mmol/L Normal 97-105 [facility] Comment on above: Order Comment: Speci men Type: BLOOD SPECIMENOrdering Facility: [facility] Address: [address] [place] [address] Performed By: #### 2 4321-2 ####[facility] LABORATORYCLIA [id number] [place] [address] [place] CO2 [Moles/Vol] 29 mmol/L Normal 22-30 [facility] Comment on above: Order Comment: Speci men Type: BLOOD SPECIMENOrdering Facility: [facility] Address: [address] [place] [address] Performed By: #### 2 4321-2 ####[facility] LABORATORYCLIA [id number] [place] [address] [place] Creatinine [Mass/Vol] 0.58 mg/dL Low 0.73-1.22 [facility] Comment on above: Order Comment: Speci men Type: BLOOD SPECIMENOrdering Facility: [facility] Address: [address] [place] [address] Performed By: #### 2 4321-2 ####[facility] LABORATORYCLIA [id number] [place] [address] [place] ESTIMATED GLOMERULAR FILTRATION RATE 106 mL/min/1.73m??? Normal >=60 [facility] Comment on above: Order Comment: Shira feldman Type: BLOOD SPECIMENOrdering Facility: [facility] Address: [address] [id number] Result Comment: Luzmaria mated Glomerular Filtration Rate [...] #### 2 4321-2 ####[facility] LABORATORYCLIA [id number] [place] [address] [place] Glucose [Mass/Vol] 101 mg/dL High 74-99 [facility] Comment on above: Order Comment: Shira feldman Type: BLOOD SPECIMENOrdering Facility: [facility] Address: [address] [place] [address] Result Comment: The [place] [employer] (ADA) provides guidance for cutoff [...] Standards of Medical Care in Diabetes 2016, [place] [employer]. Diabetes Care. 2016.39(Suppl 1). Performed By: #### 2 4321-2 ####[facility] LABORATORYCLIA [id number] [place] [address] [place] Potassium [Moles/Vol] 3.5 mmol/L Low 3.7-5.1 [facility] Comment on above: Order Comment: Shira feldman Type: BLOOD SPECIMENOrdering Facility: [facility] Address: [address] [address] Performed By: #### 2 4321-2 ####[facility] LABORATORYCLIA [id number] [address] [place] Sodium [Moles/Vol] 138 mmol/L Normal 136-144 [facility] Comment on above: Order Comment: Speci men Type: BLOOD SPECIMENOrdering Facility: [facility] Address: [address] [place] [address] Performed By: #### 2 4321-2 ####[facility] LABORATORYCLIA [id number] [place] [address] [place] Urea nitrogen [Mass/Vol] 11 mg/dL Normal 9-24 [facility] Comment on above: Order Comment: Speci men Type: BLOOD SPECIMENOrdering Facility: [facility] Address: [address] [place] [address] Performed By: #### 2 4321-2 ####[facility] LABORATORYCLIA [id number] [address] [place] CASE MANAGEMon 08-19-2021 CASE MANAGEM Normal [facility] CBC W Auto Differential pane l (Bld)on 08-19-2021 Basophils (Bld) [#/Vol] 0.03 10*3/uL Normal <0.11 [facility] Comment on above: Order Comment: Speci men Type: BLOOD SPECIMENOrdering Facility: [facility] Address: [address] [place] [address] Performed By: #### 5 7021-8 ####[facility] LABORATORYCLIA [id number] [address] [place] Basophils/100 WBC (Bld) 0.4 % Normal [facility] Comment on above: Order Comment: Speci men Type: BLOOD SPECIMENOrdering Facility: [facility] Address: [address] [place] [address] Performed By: #### 5 7021-8 ####[facility] LABORATORYCLIA [id number] [address] STATES [facility] Differential cell count method Nom (Bld) Auto Normal [facility] Comment on above: Order Comment: Speci men Type: BLOOD SPECIMENOrdering Facility: [facility] Address: [address] [place] [address] Performed By: #### 5 7021-8 ####[facility] LABORATORYCLIA [id number] [address] OF [facility] Eosinophils (Bld) [#/Vol] 0.24 10*3/uL Normal <0.46 [facility] Comment on above: Order Comment: Speci men Type: BLOOD SPECIMENOrdering Facility: [facility] Address: [address] [place] [address] Performed By: #### 5 7021-8 ####[facility] LABORATORYCLIA [id number] [address] Eosinophils/100 WBC (Bld) 3.1 % Normal [facility] Comment on above: Order Comment: Speci men Type: BLOOD SPECIMENOrdering Facility: [facility] Address: [address] [place] [address] Performed By: #### 5 7021-8 ####[facility] LABORATORYCLIA [id number] [address] Erythrocyte distribution width (RBC) [Ratio] 17.5 % High 11.5-15.0 [facility] Comment on above: Order Comment: Speci men Type: BLOOD SPECIMENOrdering Facility: [facility] Address: [address] [place] [address] Performed By: #### 5 7021-8 ####[facility] LABORATORYCLIA [id number] [address] Hematocrit (Bld) [Volume fraction] 30.2 % Low 39.0-51.0 [facility] Comment on above: Order Comment: Speci men Type: BLOOD SPECIMENOrdering Facility: [facility] Address: [address] [place] [address] Performed By: #### 5 7021-8 ####[facility]ORATORYCLIA [id number] [address] [place] Hemoglobin (Bld) [Mass/Vol] 9.6 g/dL Low 13.0-17.0 [facility] Comment on above: Order Comment: Speci men Type: BLOOD SPECIMENOrdering Facility: [facility] Address: [address] [place] [address] Performed By: #### 5 7021-8 ####[facility] LABORATORYCLIA [id number] [address] IMMATURE GRAN % 0.4 % Normal [facility] Comment on above: Order Comment: Speci men Type: BLOOD SPECIMENOrdering Facility: [facility] Address: [address] [place] [address] Performed By: #### 5 7021-8 ####[facility] LABORATORYCLIA [id number] [address] IMMATURE GRAN ABS 0.03 k/uL Normal <0.10 [facility] Comment on above: Order Comment: Speci men Type: BLOOD SPECIMENOrdering Facility: [facility] Address: [address] [place] [address] Performed By: #### 5 7021-8 ####[facility] LABORATORYCLIA [id number] [address] [place] Lymphocytes (Bld) [#/Vol] 1.71 10*3/uL Normal 1.00-4.00 [facility] Comment on above: Order Comment: Speci men Type: BLOOD SPECIMENOrdering Facility: [facility] Address: [address] [place] [address] Performed By: #### 5 7021-8 ####[facility] LABORATORYCLIA [id number] [address] Lymphocytes/100 WBC (Bld) 22.2 % Normal [facility] Comment on above: Order Comment: Speci men Type: BLOOD SPECIMENOrdering Facility: [facility] Address: [address] [place] [address] Performed By: #### 5 7021-8 ####[facility] LABORATORYCLIA [id number] [address] MCH (RBC) [Entitic mass] 29.4 pg Normal 26.0-34.0 [facility] Comment on above: Order Comment: Speci men Type: BLOOD SPECIMENOrdering Facility: [facility] Address: [address] [place] [address] Performed By: #### 5 7021-8 ####[facility] LABORATORYCLIA [id number] [address] MCHC (RBC) [Mass/Vol] 31.8 g/dL Normal 30.5-36.0 [facility] Comment on above: Order Comment: Speci men Type: BLOOD SPECIMENOrdering Facility: [facility] Address: [address] [place] [address] Performed By: #### 5 7021-8 ####[facility] LABORATORYCLIA [id number] [address] MCV (RBC) [Entitic vol] 92.6 fL Normal 80.0-100.0 [facility] Comment on above: Order Comment: Speci men Type: BLOOD SPECIMENOrdering Facility: [facility] Address: [address] [place] [address] Performed By: #### 5 7021-8 ####[facility] LABORATORYCLIA [id number] [address] Monocytes (Bld) [#/Vol] 0.50 10*3/uL Normal <0.87 [facility] Comment on above: Order Comment: Speci men Type: BLOOD SPECIMENOrdering Facility: [facility] Address: [address] [place] [address] Performed By: #### 5 7021-8 ####[facility] LABORATORYCLIA [id number] [address] Monocytes/100 WBC (Bld) 6.5 % Normal [facility] Comment on above: Order Comment: Speci men Type: BLOOD SPECIMENOrdering Facility: [facility] Address: [address] [place] [address] Performed By: #### 5 7021-8 ####[facility] LABORATORYCLIA [id number] [place] [address] [place] Neutrophils (Bld) [#/Vol] 5.20 10*3/uL Normal 1.45-7.50 [facility] Comment on above: Order Comment: Speci men Type: BLOOD SPECIMENOrdering Facility: [facility] Address: [address] [place] [address] Performed By: #### 5 7021-8 ####[facility] LABORATORYCLIA [id number] [address] [place] Neutrophils/100 WBC (Bld) 67.4 % Normal [facility] Comment on above: Order Comment: Speci men Type: BLOOD SPECIMENOrdering Facility: [facility] Address: [address] [place] [address] Performed By: #### 5 7021-8 ####[facility] LABORATORYCLIA [id number] [address] [place] Nucleated RBC (Bld) [#/Vol] 10*3/uL Normal <0.01 [facility] Comment on above: Order Comment: Speci men Type: BLOOD SPECIMENOrdering Facility: [facility] Address: [address] [place] [address] Performed By: #### 5 7021-8 ####[facility]ORATORYCLIA [id number] [address] [place] Nucleated RBC/100 WBC (Bld) [Ratio] 0.0 /100 WBC Normal [facility] Comment on above: Order Comment: Speci men Type: BLOOD SPECIMENOrdering Facility: [facility] Address: [address] [place] [address] Performed By: #### 5 7021-8 ####[facility]ORATORYCLIA [id number] [address] [place] Platelet mean volume (Bld) [Entitic vol] 8.9 fL Low 9.0-12.7 [facility] Comment on above: Order Comment: Speci men Type: BLOOD SPECIMENOrdering Facility: [facility] Address: [address] [place] [address] Performed By: #### 5 7021-8 ####[facility] LABORATORYCLIA [id number] [place] [address] [place] Platelets (Bld) [#/Vol] 408 10*3/uL High 150-400 [facility] Comment on above: Order Comment: Speci men Type: BLOOD SPECIMENOrdering Facility: [facility] Address: [address] [place] [address] Performed By: #### 5 7021-8 ####[facility] LABORATORYCLIA [id number] [place] [address] [place] RBC (Bld) [#/Vol] 3.26 10*6/uL Low 4.20-6.00 [facility] Comment on above: Order Comment: Speci men Type: BLOOD SPECIMENOrdering Facility: [facility] Address: [address] [place] [address] Performed By: #### 5 7021-8 ####[facility] LABORATORYCLIA [id number] [address] [place] WBC (Bld) [#/Vol] 7.71 10*3/uL Normal 3.70-11.00 [facility] Comment on above: Order Comment: Speci men Type: BLOOD SPECIMENOrdering Facility: [facility] Address: [address] [place] [address] Performed By: #### 5 7021-8 ####[facility] LABORATORYCLIA [id number] [address] [place] CNDSon 08-19-2021 CNDS Normal [facility] CONSULT PROGon 08-19-2021 CONSULT PROG Normal [facility] THERAPY NTon 08-19-2021 THERAPY NT Normal [facility] Basic metabolic 2000 panelon 08-18-2021 Anion gap [Moles/Vol] 11 mmol/L Normal 9-18 [facility] Comment on above: Order Comment: Speci men Type: BLOOD SPECIMENOrdering Facility: [facility] Address: [address] [place] [address] Performed By: #### 2 4321-2 ####[facility] LABORATORYCLIA [id number] [place] [address] [place] Calcium [Mass/Vol] 8.6 mg/dL Normal 8.5-10.2 [facility] Comment on above: Order Comment: Speci men Type: BLOOD SPECIMENOrdering Facility: [facility] Address: [address] [place] [address] Performed By: #### 2 4321-2 ####[facility] LABORATORYCLIA [id number] [place] [address] [place] Chloride [Moles/Vol] 98 mmol/L Normal 97-105 [facility] Comment on above: Order Comment: Speci men Type: BLOOD SPECIMENOrdering Facility: [facility] Address: [address] [place] [address] Performed By: #### 2 4321-2 ####[facility] LABORATORYCLIA [id number] [place] [address] [place] CO2 [Moles/Vol] 28 mmol/L Normal 22-30 [facility] Comment on above: Order Comment: Speci men Type: BLOOD SPECIMENOrdering Facility: [facility] Address: [address] [place] [address] Performed By: #### 2 4321-2 ####[facility] LABORATORYCLIA [id number] [place] [address] [place] Creatinine [Mass/Vol] 0.56 mg/dL Low 0.73-1.22 [facility] Comment on above: Order Comment: Speci men Type: BLOOD SPECIMENOrdering Facility: [facility] Address: [address] [place] [address] Performed By: #### 2 4321-2 ####[facility]ITALCLIA [id number] [address] [place] ESTIMATED GLOMERULAR FILTRATION RATE 107 mL/min/1.73m??? Normal >=60 [facility] Comment on above: Order Comment: Shira francia Type: BLOOD SPECIMENOrdering Facility: [facility] Address: [address] [place] [address] Result Comment: Luzmaria mated Glomerular Filtration Rate [...] GFR. Performed By: #### 2 4321-2 ####[facility] HOSPITALIA [id number] [place] [address] [place] Glucose [Mass/Vol] 113 mg/dL High 74-99 [facility] Comment on above: Order Comment: Shira feldman Type: BLOOD SPECIMENOrdering Facility: [facility] Address: [address] [place] [address] Result Comment: The [place] Diabetes Association (ADA) provides guidance for cutoff [...] Standards of Medical Care in Diabetes 2016, [place] [employer]. Diabetes Care. 2016.39(Suppl 1). Performed By: #### 2 4321-2 ####[facility] LABORATORYCLIA [id number] [place] [address] [place] Potassium [Moles/Vol] 3.5 mmol/L Low 3.7-5.1 [facility] Comment on above: Order Comment: Speci men Type: BLOOD SPECIMENOrdering Facility: [facility] Address: [address] [place] [address] Performed By: #### 2 4321-2 ####[facility] LABORATORYCLIA [id number] [address] STATES [facility] Sodium [Moles/Vol] 137 mmol/L Normal 136-144 [facility] Comment on above: Order Comment: Speci men Type: BLOOD SPECIMENOrdering Facility: [facility] Address: [address] [place] [address] Performed By: #### 2 4321-2 ####[facility] LABORATORYCLIA [id number] [address] STATES [facility] Urea nitrogen [Mass/Vol] 10 mg/dL Normal 9-24 [facility] Comment on above: Order Comment: Speci men Type: BLOOD SPECIMENOrdering Facility: [facility] Address: [address] [place] [address] Performed By: #### 2 4321-2 ####[facility] LABORATORYCLIA [id number] [address] [place] CBC W Auto Differential pane l (Bld)on 08-18-2021 Basophils (Bld) [#/Vol] 10*3/uL Normal <0.11 [facility] Comment on above: Order Comment: Speci men Type: BLOOD SPECIMENOrdering Facility: [facility] Address: [address] [place] [address] Performed By: #### 5 7021-8 ####[facility] LABORATORYCLIA [id number] [address] Basophils/100 WBC (Bld) 0.3 % Normal [facility] Comment on above: Order Comment: Speci men Type: BLOOD SPECIMENOrdering Facility: [facility] Address: [address] [place] [address] Performed By: #### 5 7021-8 ####[facility] LABORATORYCLIA [id number] [address] [place] Differential cell count method Nom (Bld) Auto Normal [facility] Comment on above: Order Comment: Speci men Type: BLOOD SPECIMENOrdering Facility: [facility] Address: [address] [place] [address] Performed By: #### 5 7021-8 ####[facility] LABORATORYCLIA [id number] [address] [place] Eosinophils (Bld) [#/Vol] 0.37 10*3/uL Normal <0.46 [facility] Comment on above: Order Comment: Speci men Type: BLOOD SPECIMENOrdering Facility: [facility] Address: [address] [place] [address] Performed By: #### 5 7021-8 ####[facility] LABORATORYCLIA [id number] [address] Eosinophils/100 WBC (Bld) 4.8 % Normal [facility] Comment on above: Order Comment: Speci men Type: BLOOD SPECIMENOrdering Facility: [facility] Address: [address] [place] [address] Performed By: #### 5 7021-8 ####[facility] LABORATORYCLIA [id number] [address] [place] Erythrocyte distribution width (RBC) [Ratio] 17.5 % High 11.5-15.0 [facility] Comment on above: Order Comment: Speci men Type: BLOOD SPECIMENOrdering Facility: [facility] Address: [address] [place] [address] Performed By: #### 5 7021-8 ####[facility] LABORATORYCLIA [id number] [address] Hematocrit (Bld) [Volume fraction] 30.2 % Low 39.0-51.0 [facility] Comment on above: Order Comment: Speci men Type: BLOOD SPECIMENOrdering Facility: [facility] Address: [address] [address] Performed By: #### 5 7021-8 ####[facility]ORATORYCLIA [id number] [address] [place] Hemoglobin (Bld) [Mass/Vol] 9.5 g/dL Low 13.0-17.0 [facility] Comment on above: Order Comment: Speci men Type: BLOOD SPECIMENOrdering Facility: [facility] Address: [address] [place] [address] Performed By: #### 5 7021-8 ####[facility]ORATORYCLIA [id number] [address] IMMATURE GRAN % 0.4 % Normal [facility] Comment on above: Order Comment: Speci men Type: BLOOD SPECIMENOrdering Facility: [facility] Address: [address] [place] [address] Performed By: #### 5 7021-8 ####[facility]ORATORYCLIA [id number] [address] IMMATURE GRAN ABS 0.03 k/uL Normal <0.10 [facility] Comment on above: Order Comment: Speci men Type: BLOOD SPECIMENOrdering Facility: [facility] Address: [address] [place] [address] Performed By: #### 5 7021-8 ####[facility] LABORATORYCLIA [id number] [address] [place] Lymphocytes (Bld) [#/Vol] 1.85 10*3/uL Normal 1.00-4.00 [facility] Comment on above: Order Comment: Speci men Type: BLOOD SPECIMENOrdering Facility: [facility] Address: [address] [place] [address] Performed By: #### 5 7021-8 ####[facility]ORATORYCLIA [id number] [address] [place] Lymphocytes/100 WBC (Bld) 23.8 % Normal [facility] Comment on above: Order Comment: Speci men Type: BLOOD SPECIMENOrdering Facility: [facility] Address: [address] [place] [address] Performed By: #### 5 7021-8 ####[facility] LABORATORYCLIA [id number] [address] MCH (RBC) [Entitic mass] 29.5 pg Normal 26.0-34.0 [facility] Comment on above: Order Comment: Speci men Type: BLOOD SPECIMENOrdering Facility: [facility] Address: [address] [place] [address] Performed By: #### 5 7021-8 ####[facility] LABORATORYCLIA [id number] [address] MCHC (RBC) [Mass/Vol] 31.5 g/dL Normal 30.5-36.0 [facility] Comment on above: Order Comment: Speci men Type: BLOOD SPECIMENOrdering Facility: [facility] Address: [address] [place] [address] Performed By: #### 5 7021-8 ####[facility] LABORATORYCLIA [id number] [address] MCV (RBC) [Entitic vol] 93.8 fL Normal 80.0-100.0 [facility] Comment on above: Order Comment: Speci men Type: BLOOD SPECIMENOrdering Facility: [facility] Address: [address] [place] [address] Performed By: #### 5 7021-8 ####[facility] LABORATORYCLIA [id number] [address] Monocytes (Bld) [#/Vol] 0.49 10*3/uL Normal <0.87 [facility] Comment on above: Order Comment: Speci men Type: BLOOD SPECIMENOrdering Facility: [facility] Address: [address] [place] [address] Performed By: #### 5 7021-8 ####[facility] LABORATORYCLIA [id number] [address] [place] Monocytes/100 WBC (Bld) 6.3 % Normal [facility] Comment on above: Order Comment: Speci men Type: BLOOD SPECIMENOrdering Facility: [facility] Address: [address] [place] [address] Performed By: #### 5 7021-8 ####[facility] LABORATORYCLIA [id number] [place] [address] [place] Neutrophils (Bld) [#/Vol] 5.00 10*3/uL Normal 1.45-7.50 [facility] Comment on above: Order Comment: Speci men Type: BLOOD SPECIMENOrdering Facility: [facility] Address: [address] [place] [address] Performed By: #### 5 7021-8 ####[facility] LABORATORYCLIA [id number] [address] [place] Neutrophils/100 WBC (Bld) 64.4 % Normal [facility] Comment on above: Order Comment: Speci men Type: BLOOD SPECIMENOrdering Facility: [facility] Address: [address] [place] [address] Performed By: #### 5 7021-8 ####[facility] LABORATORYCLIA [id number] [place] [address] [place] Nucleated RBC (Bld) [#/Vol] 10*3/uL Normal <0.01 [facility] Comment on above: Order Comment: Speci men Type: BLOOD SPECIMENOrdering Facility: [facility] Address: [address] [place] [address] Performed By: #### 5 7021-8 ####[facility] LABORATORYCLIA [id number] [address] [place] Nucleated RBC/100 WBC (Bld) [Ratio] 0.0 /100 WBC Normal [facility] Comment on above: Order Comment: Speci men Type: BLOOD SPECIMENOrdering Facility: [facility] Address: [address] [place] [address] Performed By: #### 5 7021-8 ####[facility]ORATORYCLIA [id number] [address] [place] Platelet mean volume (Bld) [Entitic vol] 9.1 fL Normal 9.0-12.7 [facility] Comment on above: Order Comment: Speci men Type: BLOOD SPECIMENOrdering Facility: [facility] Address: [address] [place] [address] Performed By: #### 5 7021-8 ####[facility]ORATORYCLIA [id number] [place] [address] [place] Platelets (Bld) [#/Vol] 391 10*3/uL Normal 150-400 [facility] Comment on above: Order Comment: Speci men Type: BLOOD SPECIMENOrdering Facility: [facility] Address: [address] [place] [address] Performed By: #### 5 7021-8 ####[facility]ORATORYCLIA [id number] [address] [place] RBC (Bld) [#/Vol] 3.22 10*6/uL Low 4.20-6.00 [facility] Comment on above: Order Comment: Speci men Type: BLOOD SPECIMENOrdering Facility: [facility] Address: [address] [place] [address] Performed By: #### 5 7021-8 ####[facility]ORATORYCLIA [id number] [place] [address] [place] WBC (Bld) [#/Vol] 7.76 10*3/uL Normal 3.70-11.00 [facility] Comment on above: Order Comment: Speci men Type: BLOOD SPECIMENOrdering Facility: [facility] Address: [address] [place] [address] Performed By: #### 5 7021-8 ####[facility] LABORATORYCLIA [id number] [address] [place] CONSULT PROGon 08-18-2021 CONSULT PROG Normal [facility] CASE MANAGEMon 08-17-2021 CASE MANAGEM Normal [facility] CBC W Auto Differential pane l (Bld)on 08-17-2021 Basophils (Bld) [#/Vol] 0.04 10*3/uL Normal <0.11 [facility] Comment on above: Order Comment: Speci men Type: BLOOD SPECIMENOrdering Facility: [facility] Address: [address] [place] [address] Performed By: #### 5 7021-8 ####[facility]ORATORYCLIA [id number] [place] [address] [place] Basophils/100 WBC (Bld) 0.5 % Normal [facility] Comment on above: Order Comment: Speci men Type: BLOOD SPECIMENOrdering Facility: [facility] Address: [address] [place] [address] Performed By: #### 5 7021-8 ####[facility]ORATORYCLIA [id number] [address] [place] Differential cell count method Nom (Bld) Auto Normal [facility] Comment on above: Order Comment: Speci men Type: BLOOD SPECIMENOrdering Facility: [facility] Address: [address] [place] [address] Performed By: #### 5 7021-8 ####[facility]ORATORYCLIA [id number] [place] [address] [place] Eosinophils (Bld) [#/Vol] 0.31 10*3/uL Normal <0.46 [facility] Comment on above: Order Comment: Speci men Type: BLOOD SPECIMENOrdering Facility: [facility] Address: [address] [place] [address] Performed By: #### 5 7021-8 ####[facility]ORATORYCLIA [id number] [address] [place] Eosinophils/100 WBC (Bld) 3.7 % Normal [facility] Comment on above: Order Comment: Speci men Type: BLOOD SPECIMENOrdering Facility: [facility] Address: [address] [address] Performed By: #### 5 7021-8 ####[facility]ORATORYCLIA [id number] [address] Erythrocyte distribution width (RBC) [Ratio] 17.4 % High 11.5-15.0 [facility] Comment on above: Order Comment: Speci men Type: BLOOD SPECIMENOrdering Facility: [facility] Address: [address] [place] [address] Performed By: #### 5 7021-8 ####[facility]ORATORYCLIA [id number] [address] Hematocrit (Bld) [Volume fraction] 30.6 % Low 39.0-51.0 [facility] Comment on above: Order Comment: Speci men Type: BLOOD SPECIMENOrdering Facility: [facility] Address: [address] [place] [address] Performed By: #### 5 7021-8 ####[facility]ORATORYCLIA [id number] [address] Hemoglobin (Bld) [Mass/Vol] 9.6 g/dL Low 13.0-17.0 [facility] Comment on above: Order Comment: Speci men Type: BLOOD SPECIMENOrdering Facility: [facility] Address: [address] [place] [address] Performed By: #### 5 7021-8 ####[facility]ORATORYCLIA [id number] [address] IMMATURE GRAN % 0.2 % Normal [facility] Comment on above: Order Comment: Speci men Type: BLOOD SPECIMENOrdering Facility: [facility] Address: [address] [place] [address] Performed By: #### 5 7021-8 ####[facility]ORATORYCLIA [id number] [address] IMMATURE GRAN ABS <0.03 Normal <0.10 [facility] Comment on above: Order Comment: Speci men Type: BLOOD SPECIMENOrdering Facility: [facility] Address: [address] [place] [address] Performed By: #### 5 7021-8 ####[facility]ORATORYCLIA [id number] [address] OF [facility] Lymphocytes (Bld) [#/Vol] 1.66 10*3/uL Normal 1.00-4.00 [facility] Comment on above: Order Comment: Speci men Type: BLOOD SPECIMENOrdering Facility: [facility] Address: [address] [place] [address] Performed By: #### 5 7021-8 ####[facility]ORATORYCLIA [id number] [address] Lymphocytes/100 WBC (Bld) 19.9 % Normal [facility] Comment on above: Order Comment: Speci men Type: BLOOD SPECIMENOrdering Facility: [facility] Address: [address] [place] [address] Performed By: #### 5 7021-8 ####[facility] LABORATORYCLIA [id number] [address] OF [facility] MCH (RBC) [Entitic mass] 28.9 pg Normal 26.0-34.0 [facility] Comment on above: Order Comment: Speci men Type: BLOOD SPECIMENOrdering Facility: [facility] Address: [address] [place] [address] Performed By: #### 5 7021-8 ####[facility]ORATORYCLIA [id number] [address] STATES OF [facility] MCHC (RBC) [Mass/Vol] 31.4 g/dL Normal 30.5-36.0 [facility] Comment on above: Order Comment: Speci men Type: BLOOD SPECIMENOrdering Facility: [facility] Address: [address] [place] [address] Performed By: #### 5 7021-8 ####[facility] LABORATORYCLIA [id number] [address] [place] MCV (RBC) [Entitic vol] 92.2 fL Normal 80.0-100.0 [facility] Comment on above: Order Comment: Speci men Type: BLOOD SPECIMENOrdering Facility: [facility] Address: [address] [place] [address] Performed By: #### 5 7021-8 ####[facility]ORATORYCLIA [id number] [place] [address] [place] Monocytes (Bld) [#/Vol] 0.52 10*3/uL Normal <0.87 [facility] Comment on above: Order Comment: Speci men Type: BLOOD SPECIMENOrdering Facility: [facility] Address: [address] [place] [address] Performed By: #### 5 7021-8 ####[facility]ORATORYCLIA [id number] [address] STATES [facility] Monocytes/100 WBC (Bld) 6.2 % Normal [facility] Comment on above: Order Comment: Speci men Type: BLOOD SPECIMENOrdering Facility: [facility] Address: [address] [place] [address] Performed By: #### 5 7021-8 ####[facility]ORATORYCLIA [id number] [address] [place] Neutrophils (Bld) [#/Vol] 5.78 10*3/uL Normal 1.45-7.50 [facility] Comment on above: Order Comment: Speci men Type: BLOOD SPECIMENOrdering Facility: [facility] Address: [address] [place] [address] Performed By: #### 5 7021-8 ####[facility]ORATORYCLIA [id number] [address] [place] Neutrophils/100 WBC (Bld) 69.5 % Normal [facility] Comment on above: Order Comment: Speci men Type: BLOOD SPECIMENOrdering Facility: [facility] Address: [address] [place] [address] Performed By: #### 5 7021-8 ####[facility]ORATORYCLIA [id number] [address] [place] Nucleated RBC (Bld) [#/Vol] 10*3/uL Normal <0.01 [facility] Comment on above: Order Comment: Speci men Type: BLOOD SPECIMENOrdering Facility: [facility] Address: [address] [place] [address] Performed By: #### 5 7021-8 ####[facility]ORATORYCLIA [id number] [address] [place] Nucleated RBC/100 WBC (Bld) [Ratio] 0.0 /100 WBC Normal [facility] Comment on above: Order Comment: Speci men Type: BLOOD SPECIMENOrdering Facility: [facility] Address: [address] [place] [address] Performed By: #### 5 7021-8 ####[facility]ORATORYCLIA [id number] [address] [place] Platelet mean volume (Bld) [Entitic vol] 9.2 fL Normal 9.0-12.7 [facility] Comment on above: Order Comment: Speci men Type: BLOOD SPECIMENOrdering Facility: [facility] Address: [address] [place] [address] Performed By: #### 5 7021-8 ####[facility]ORATORYCLIA [id number] [address] [place] Platelets (Bld) [#/Vol] 379 10*3/uL Normal 150-400 [facility] Comment on above: Order Comment: Speci men Type: BLOOD SPECIMENOrdering Facility: [facility] Address: [address] [place] [address] Performed By: #### 5 7021-8 ####[facility]ORATORYCLIA [id number] [address] [place] RBC (Bld) [#/Vol] 3.32 10*6/uL Low 4.20-6.00 [facility] Comment on above: Order Comment: Speci men Type: BLOOD SPECIMENOrdering Facility: [facility] Address: [address] [place] [address] Performed By: #### 5 7021-8 ####[facility]ORATORYCLIA [id number] [place] [address] [place] WBC (Bld) [#/Vol] 8.33 10*3/uL Normal 3.70-11.00 [facility] Comment on above: Order Comment: Speci men Type: BLOOD SPECIMENOrdering Facility: [facility] Address: [address] [place] [address] Performed By: #### 5 7021-8 ####[facility]ORATORYCLIA [id number] [address] [place] CONSULT PROGon 08-17-2021 CONSULT PROG Normal [facility] NUTRITIONon 08-17-2021 NUTRITION Normal [facility] Basic metabolic 2000 panelon 08-16-2021 Anion gap [Moles/Vol] 14 mmol/L Normal 9-18 [facility] Comment on above: Order Comment: Speci men Type: BLOOD SPECIMENOrdering Facility: [facility] Address: [address] [place] [address] Performed By: #### 2 4321-2, ####[facility]ORATORYCLIA [id number] [place] [address] [place] Calcium [Mass/Vol] 8.8 mg/dL Normal 8.5-10.2 [facility] Comment on above: Order Comment: Speci men Type: BLOOD SPECIMENOrdering Facility: [facility] Address: [address] [place] [address] Performed By: #### 2 4321-2, ####[facility]ORATORYCLIA [id number] [place] [address] [place] Chloride [Moles/Vol] 97 mmol/L Normal 97-105 [facility] Comment on above: Order Comment: Speci men Type: BLOOD SPECIMENOrdering Facility: [facility] Address: [address] [place] [address] Performed By: #### 2 4322, ####[facility]ORATORYCLIA [id number] [address] STATES OF [facility] CO2 [Moles/Vol] 27 mmol/L Normal 22-30 [facility] Comment on above: Order Comment: Speci men Type: BLOOD SPECIMENOrdering Facility: [facility] Address: [address] [place] [address] Performed By: #### 2 4320-06, ####[facility]ORATORYCLIA [id number] [address] STATES OF [facility] Creatinine [Mass/Vol] 0.50 mg/dL Low 0.73-1.22 [facility] Comment on above: Order Comment: Speci men Type: BLOOD SPECIMENOrdering Facility: [facility] Address: [address] [place] [address] Performed By: #### 2 4320-06, ####[facility] [id number] [address] ESTIMATED GLOMERULAR FILTRATION RATE 110 mL/min/1.73m??? Normal >=60 [facility] Comment on above: Order Comment: Speci men Type: BLOOD SPECIMENOrdering Facility: [facility] Address: [address] [place] [address] Result Comment: Luzmaria mated Glomerular Filtration Rate [...] #### 2 4321-2, ####[facility]ORATORYCLIA [id number] [address] [place] Glucose [Mass/Vol] 101 mg/dL High 74-99 [facility] Comment on above: Order Comment: Shira feldman Type: BLOOD SPECIMENOrdering Facility: [facility] Address: [address] [place] [address] Result Comment: The [place] [employer] (ADA) provides guidance for cutoff [...] Standards of Medical Care in Diabetes 2016, [place] [employer]. Diabetes Care. 2016.39(Suppl 1). Performed By: #### 2 432-, ####[facility] LABORATORYCLIA [id number] [place] [address] [place] Potassium [Moles/Vol] 3.6 mmol/L Low 3.7-5.1 [facility] Comment on above: Order Comment: Shira feldman Type: BLOOD SPECIMENOrdering Facility: [facility] Address: [address] [place] [address] Performed By: #### 2 4320-06, ####[facility]ORATORYCLIA [id number] [place] [address] [place] Sodium [Moles/Vol] 138 mmol/L Normal 136-144 [facility] Comment on above: Order Comment: Shira feldman Type: BLOOD SPECIMENOrdering Facility: [facility] Address: [address] [place] [address] Performed By: #### 2 4320-06, ####[facility]ORATORYCLIA [id number] [place] [address] [place] Urea nitrogen [Mass/Vol] 11 mg/dL Normal 9-24 [facility] Comment on above: Order Comment: Speci men Type: BLOOD SPECIMENOrdering Facility: [facility] Address: [address] [place] [address] Performed By: #### 2 4321-2, 06149-0 ####[facility]ORATORYCLIA [id number] [address] [place] CASE MANAGEMon 08-16-2021 CASE MANAGEM Normal [facility] CBC W Auto Differential pane l (Bld)on 08-16-2021 Basophils (Bld) [#/Vol] 0.03 10*3/uL Normal <0.11 [facility] Comment on above: Order Comment: Speci men Type: BLOOD SPECIMENOrdering Facility: [facility] Address: [address] [place] [address] Performed By: #### 5 7021-8 ####[facility]ORATORYCLIA [id number] [address] STATES [facility] Basophils/100 WBC (Bld) 0.4 % Normal [facility] Comment on above: Order Comment: Speci men Type: BLOOD SPECIMENOrdering Facility: [facility] Address: [address] [place] [address] Performed By: #### 5 7021-8 ####[facility]ATORYCLIA [id number] [address] [place] Differential cell count method Nom (Bld) Auto Normal [facility] Comment on above: Order Comment: Speci men Type: BLOOD SPECIMENOrdering Facility: [facility] Address: [address] [place] [address] Performed By: #### 5 7021-8 ####[facility]ORATORYCLIA [id number] [place] [address] [place] Eosinophils (Bld) [#/Vol] 0.19 10*3/uL Normal <0.46 [facility] Comment on above: Order Comment: Speci men Type: BLOOD SPECIMENOrdering Facility: [facility] Address: [address] [address] Performed By: #### 5 7021-8 ####[facility]ORATORYCLIA [id number] [address] [place] Eosinophils/100 WBC (Bld) 2.5 % Normal [facility] Comment on above: Order Comment: Speci men Type: BLOOD SPECIMENOrdering Facility: [facility] Address: [address] [place] [address] Performed By: #### 5 7021-8 ####[facility]ORATORYCLIA [id number] [address] Erythrocyte distribution width (RBC) [Ratio] 17.1 % High 11.5-15.0 [facility] Comment on above: Order Comment: Speci men Type: BLOOD SPECIMENOrdering Facility: [facility] Address: [address] [place] [address] Performed By: #### 5 7021-8 ####[facility]ORATORYCLIA [id number] [address] Hematocrit (Bld) [Volume fraction] 29.2 % Low 39.0-51.0 [facility] Comment on above: Order Comment: Speci men Type: BLOOD SPECIMENOrdering Facility: [facility] Address: [address] [place] [address] Performed By: #### 5 7021-8 ####[facility]ORATORYCLIA [id number] [address] [place] Hemoglobin (Bld) [Mass/Vol] 9.0 g/dL Low 13.0-17.0 [facility] Comment on above: Order Comment: Speci men Type: BLOOD SPECIMENOrdering Facility: [facility] Address: [address] [place] [address] Performed By: #### 5 7021-8 ####[facility]ORATORYCLIA [id number] [address] IMMATURE GRAN % 0.3 % Normal [facility] Comment on above: Order Comment: Speci men Type: BLOOD SPECIMENOrdering Facility: [facility] Address: [address] [address] Performed By: #### 5 7021-8 ####[facility]ATORYCLIA [id number] [address] IMMATURE GRAN ABS <0.03 Normal <0.10 [facility] Comment on above: Order Comment: Speci men Type: BLOOD SPECIMENOrdering Facility: [facility] Address: [address] [place] [address] Performed By: #### 5 7021-8 ####[facility]ORATORYCLIA [id number] [address] Lymphocytes (Bld) [#/Vol] 1.41 10*3/uL Normal 1.00-4.00 [facility] Comment on above: Order Comment: Speci men Type: BLOOD SPECIMENOrdering Facility: [facility] Address: [address] [place] [address] Performed By: #### 5 7021-8 ####[facility]ATORYCLIA [id number] [address] Lymphocytes/100 WBC (Bld) 18.4 % Normal [facility] Comment on above: Order Comment: Speci men Type: BLOOD SPECIMENOrdering Facility: [facility] Address: [address] [place] [address] Performed By: #### 5 7021-8 ####[facility]ORATORYCLIA [id number] [address] MCH (RBC) [Entitic mass] 28.0 pg Normal 26.0-34.0 [facility] Comment on above: Order Comment: Speci men Type: BLOOD SPECIMENOrdering Facility: [facility] Address: [address] [place] [address] Performed By: #### 5 7021-8 ####[facility] LABORATORYCLIA [id number] [address] [place] MCHC (RBC) [Mass/Vol] 30.8 g/dL Normal 30.5-36.0 [facility] Comment on above: Order Comment: Speci men Type: BLOOD SPECIMENOrdering Facility: [facility] Address: [address] [place] [address] Performed By: #### 5 7021-8 ####[facility] LABORATORYCLIA [id number] [address] [place] MCV (RBC) [Entitic vol] 91.0 fL Normal 80.0-100.0 [facility] Comment on above: Order Comment: Speci men Type: BLOOD SPECIMENOrdering Facility: [facility] Address: [address] [place] [address] Performed By: #### 5 7021-8 ####[facility] LABORATORYCLIA [id number] [address] [place] Monocytes (Bld) [#/Vol] 0.47 10*3/uL Normal <0.87 [facility] Comment on above: Order Comment: Speci men Type: BLOOD SPECIMENOrdering Facility: [facility] Address: [address] [place] [address] Performed By: #### 5 7021-8 ####[facility]ORATORYCLIA [id number] [address] Monocytes/100 WBC (Bld) 6.1 % Normal [facility] Comment on above: Order Comment: Speci men Type: BLOOD SPECIMENOrdering Facility: [facility] Address: [address] [place] [address] Performed By: #### 5 7021-8 ####[facility] LABORATORYCLIA [id number] [address] [place] Neutrophils (Bld) [#/Vol] 5.55 10*3/uL Normal 1.45-7.50 [facility] Comment on above: Order Comment: Speci men Type: BLOOD SPECIMENOrdering Facility: [facility] Address: [address] [place] [address] Performed By: #### 5 7021-8 ####[facility] LABORATORYCLIA [id number] [address] [place] Neutrophils/100 WBC (Bld) 72.3 % Normal [facility] Comment on above: Order Comment: Speci men Type: BLOOD SPECIMENOrdering Facility: [facility] Address: [address] [place] [address] Performed By: #### 5 7021-8 ####[facility] LABORATORYCLIA [id number] [address] [place] Nucleated RBC (Bld) [#/Vol] 10*3/uL Normal <0.01 [facility] Comment on above: Order Comment: Speci men Type: BLOOD SPECIMENOrdering Facility: [facility] Address: [address] [place] [address] Performed By: #### 5 7021-8 ####[facility] LABORATORYCLIA [id number] [address] STATES [facility] Nucleated RBC/100 WBC (Bld) [Ratio] 0.0 /100 WBC Normal [facility] Comment on above: Order Comment: Speci men Type: BLOOD SPECIMENOrdering Facility: [facility] Address: [address] [place] [address] Performed By: #### 5 7021-8 ####[facility] LABORATORYCLIA [id number] [address] [place] Platelet mean volume (Bld) [Entitic vol] 9.3 fL Normal 9.0-12.7 [facility] Comment on above: Order Comment: Speci men Type: BLOOD SPECIMENOrdering Facility: [facility] Address: [address] [place] [address] Performed By: #### 5 7021-8 ####[facility] LABORATORYCLIA [id number] [address] [place] Platelets (Bld) [#/Vol] 319 10*3/uL Normal 150-400 [facility] Comment on above: Order Comment: Speci men Type: BLOOD SPECIMENOrdering Facility: [facility] Address: [address] [place] [address] Performed By: #### 5 7021-8 ####[facility] LABORATORYCLIA [id number] [address] STATES OF [facility] RBC (Bld) [#/Vol] 3.21 10*6/uL Low 4.20-6.00 [facility] Comment on above: Order Comment: Speci men Type: BLOOD SPECIMENOrdering Facility: [facility] Address: [address] [place] [address] Performed By: #### 5 7021-8 ####[facility] LABORATORYCLIA [id number] [place] [address] [place] WBC (Bld) [#/Vol] 7.67 10*3/uL Normal 3.70-11.00 [facility] Comment on above: Order Comment: Speci men Type: BLOOD SPECIMENOrdering Facility: [facility] Address: [address] [place] [address] Performed By: #### 5 7021-8 ####[facility]ORATORYCLIA [id number] [address] STATES OF [facility] Basophils (Bld) [#/Vol] 0.04 10*3/uL Normal <0.11 [facility] Comment on above: Order Comment: Speci men Type: BLOOD SPECIMENOrdering Facility: [facility] Address: [address] [place] [address] Performed By: #### 5 7021-8 ####[facility] LABORATORYCLIA [id number] [address] Basophils/100 WBC (Bld) 0.5 % Normal [facility] Comment on above: Order Comment: Speci men Type: BLOOD SPECIMENOrdering Facility: [facility] Address: [address] [place] [address] Performed By: #### 5 7021-8 ####[facility]ORATORYCLIA [id number] [address] [place] Differential cell count method Nom (Bld) Auto Normal [facility] Comment on above: Order Comment: Speci men Type: BLOOD SPECIMENOrdering Facility: [facility] Address: [address] [address] Performed By: #### 5 7021-8 ####[facility]ORATORYCLIA [id number] [address] Eosinophils (Bld) [#/Vol] 0.19 10*3/uL Normal <0.46 [facility] Comment on above: Order Comment: Speci men Type: BLOOD SPECIMENOrdering Facility: [facility] Address: [address] [place] [address] Performed By: #### 5 7021-8 ####[facility]ORATORYCLIA [id number] [address] Eosinophils/100 WBC (Bld) 2.5 % Normal [facility] Comment on above: Order Comment: Speci men Type: BLOOD SPECIMENOrdering Facility: [facility] Address: [address] [place] [address] Performed By: #### 5 7021-8 ####[facility]ORATORYCLIA [id number] [address] Erythrocyte distribution width (RBC) [Ratio] 17.2 % High 11.5-15.0 [facility] Comment on above: Order Comment: Speci men Type: BLOOD SPECIMENOrdering Facility: [facility] Address: [address] [place] [address] Performed By: #### 5 7021-8 ####[facility]ORATORYCLIA [id number] [address] Hematocrit (Bld) [Volume fraction] 29.5 % Low 39.0-51.0 [facility] Comment on above: Order Comment: Speci men Type: BLOOD SPECIMENOrdering Facility: [facility] Address: [address] [place] [address] Performed By: #### 5 7021-8 ####[facility]ORATORYCLIA [id number] [place] [address] Hemoglobin (Bld) [Mass/Vol] 9.2 g/dL Low 13.0-17.0 [facility] Comment on above: Order Comment: Speci men Type: BLOOD SPECIMENOrdering Facility: [facility] Address: [address] [place] [address] Performed By: #### 5 7021-8 ####[facility]ORATORYCLIA [id number] [address] IMMATURE GRAN % 0.4 % Normal [facility] Comment on above: Order Comment: Speci men Type: BLOOD SPECIMENOrdering Facility: [facility] Address: [address] [place] [address] Performed By: #### 5 7021-8 ####[facility]ORATORYCLIA [id number] [address] IMMATURE GRAN ABS 0.03 k/uL Normal <0.10 [facility] Comment on above: Order Comment: Speci men Type: BLOOD SPECIMENOrdering Facility: [facility] Address: [address] [place] [address] Performed By: #### 5 7021-8 ####[facility] LABORATORYCLIA [id number] [address] Lymphocytes (Bld) [#/Vol] 1.50 10*3/uL Normal 1.00-4.00 [facility] Comment on above: Order Comment: Speci men Type: BLOOD SPECIMENOrdering Facility: [facility] Address: [address] [place] [address] Performed By: #### 5 7021-8 ####[facility]ORATORYCLIA [id number] [address] Lymphocytes/100 WBC (Bld) 19.7 % Normal [facility] Comment on above: Order Comment: Speci men Type: BLOOD SPECIMENOrdering Facility: [facility] Address: [address] [place] [address] Performed By: #### 5 7021-8 ####[facility]ORATORYCLIA [id number] [address] MCH (RBC) [Entitic mass] 28.3 pg Normal 26.0-34.0 [facility] Comment on above: Order Comment: Speci men Type: BLOOD SPECIMENOrdering Facility: [facility] Address: [address] [place] [address] Performed By: #### 5 7021-8 ####[facility]ORATORYCLIA [id number] [address] MCHC (RBC) [Mass/Vol] 31.2 g/dL Normal 30.5-36.0 [facility] Comment on above: Order Comment: Speci men Type: BLOOD SPECIMENOrdering Facility: [facility] Address: [address] [place] [address] Performed By: #### 5 7021-8 ####[facility]ORATORYCLIA [id number] [address] MCV (RBC) [Entitic vol] 90.8 fL Normal 80.0-100.0 [facility] Comment on above: Order Comment: Speci men Type: BLOOD SPECIMENOrdering Facility: [facility] Address: [address] [place] [address] Performed By: #### 5 7021-8 ####[facility]ORATORYCLIA [id number] [address] Monocytes (Bld) [#/Vol] 0.49 10*3/uL Normal <0.87 [facility] Comment on above: Order Comment: Speci men Type: BLOOD SPECIMENOrdering Facility: [facility] Address: [address] [place] [address] Performed By: #### 5 7021-8 ####[facility]ORATORYCLIA [id number] [address] Monocytes/100 WBC (Bld) 6.4 % Normal [facility] Comment on above: Order Comment: Speci men Type: BLOOD SPECIMENOrdering Facility: [facility] Address: [address] [place] [address] Performed By: #### 5 7021-8 ####[facility]ORATORYCLIA [id number] [address] [place] Neutrophils (Bld) [#/Vol] 5.38 10*3/uL Normal 1.45-7.50 [facility] Comment on above: Order Comment: Speci men Type: BLOOD SPECIMENOrdering Facility: [facility] Address: [address] [place] [address] Performed By: #### 5 7021-8 ####[facility]ORATORYCLIA [id number] [address] [place] Neutrophils/100 WBC (Bld) 70.5 % Normal [facility] Comment on above: Order Comment: Speci men Type: BLOOD SPECIMENOrdering Facility: [facility] Address: [address] [place] [address] Performed By: #### 5 7021-8 ####[facility]ORATORYCLIA [id number] [address] [place] Nucleated RBC (Bld) [#/Vol] 10*3/uL Normal <0.01 [facility] Comment on above: Order Comment: Speci men Type: BLOOD SPECIMENOrdering Facility: [facility] Address: [address] [place] [address] Performed By: #### 5 7021-8 ####[facility]ORATORYCLIA [id number] [address] [place] Nucleated RBC/100 WBC (Bld) [Ratio] 0.0 /100 WBC Normal [facility] Comment on above: Order Comment: Speci men Type: BLOOD SPECIMENOrdering Facility: [facility] Address: [address] [place] [address] Performed By: #### 5 7021-8 ####[facility]ORATORYCLIA [id number] [place] [address] [place] Platelet mean volume (Bld) [Entitic vol] 9.0 fL Normal 9.0-12.7 [facility] Comment on above: Order Comment: Speci men Type: BLOOD SPECIMENOrdering Facility: [facility] Address: [address] [address] Performed By: #### 5 7021-8 ####[facility]ORATORYCLIA [id number] [place] [address] [place] Platelets (Bld) [#/Vol] 316 10*3/uL Normal 150-400 [facility] Comment on above: Order Comment: Speci men Type: BLOOD SPECIMENOrdering Facility: [facility] Address: [address] [place] [address] Performed By: #### 5 7021-8 ####[facility]ORATORYCLIA [id number] [place] [address] [place] RBC (Bld) [#/Vol] 3.25 10*6/uL Low 4.20-6.00 [facility] Comment on above: Order Comment: Speci men Type: BLOOD SPECIMENOrdering Facility: [facility] Address: [address] [place] [address] Performed By: #### 5 7021-8 ####[facility]ORATORYCLIA [id number] [address] [place] WBC (Bld) [#/Vol] 7.63 10*3/uL Normal 3.70-11.00 [facility] Comment on above: Order Comment: Speci men Type: BLOOD SPECIMENOrdering Facility: [facility] Address: [address] [place], [place] [address] Performed By: #### 5 7021-8 ####[facility]ORATORYCLIA [id number] [address] [place] Basophils (Bld) [#/Vol] Normal <0.11 [facility] Comment on above: Order Comment: Speci men Type: BLOOD SPECIMENOrdering Facility: [facility] Address: [address] [place] [address] Result Comment: Carolina Owens RN informed lab after results autoverified that she rd on the wrong patient. Lab to credit. Nurse to redraw on correct patient.Corrected result: Previously reported as 0.04 k/uL on 08/16/2021 at 4:44 AM EDT. Performed By: #### 5 7021-8 ####[facility]ORATORYCLIA [id number] [address] STATES [facility] Basophils/100 WBC (Bld) Normal [facility] Comment on above: Order Comment: Speci men Type: BLOOD SPECIMENOrdering Facility: [facility] Address: [address] [place] [address] Result Comment: Tati ected result: Previously reported as 0.4 % on 08/16/2021 at 4:44 AM EDT. Performed By: #### 5 7021-8 ####[facility]ORATORYCLIA [id number] [address] CBC W Differential panel, method unspecified (Bld) Normal [facility] Comment on above: Order Comment: Speci men Type: BLOOD SPECIMENOrdering Facility: [facility] Address: [address] [place] [address] Result Comment: Carolina Owens RN informed lab after results autoverified that she rd on the wrong patient. Lab to credit. Nurse to redraw on correct patient. Performed By: #### 5 7021-8 ####[facility]ORATORYCLIA [id number] [address] STATES [facility] Differential cell count method Nom (Bld) Normal [facility] Comment on above: Order Comment: Speci men Type: BLOOD SPECIMENOrdering Facility: [facility] Address: [address] [place] [address] Result Comment: Carolina Owens RN informed lab after results autoverified that she rd on the wrong patient. Lab to credit. Nurse to redraw on correct patient.Corrected result: Previously reported as Auto on 08/16/2021 at 4:44 AM EDT. Performed By: #### 5 7021-8 ####[facility]ORATORYCLIA [id number] [address] Eosinophils (Bld) [#/Vol] Normal <0.46 [facility] Comment on above: Order Comment: Speci men Type: BLOOD SPECIMENOrdering Facility: [facility] Address: [address] [place] [address] Result Comment: Carolina Owens RN informed lab after results autoverified that she rd on the wrong patient. Lab to credit. Nurse to redraw on correct patient.Corrected result: Previously reported as 0.07 k/uL on 08/16/2021 at 4:44 AM EDT. Performed By: #### 5 7021-8 ####[facility]ORATORYCLIA [id number] [address] Eosinophils/100 WBC (Bld) Normal [facility] Comment on above: Order Comment: Speci men Type: BLOOD SPECIMENOrdering Facility: [facility] Address: [address] [place] [address] Result Comment: Carolina Owens RN informed lab after results autoverified that she rd on the wrong patient. Lab to credit. Nurse to redraw on correct patient.Corrected result: Previously reported as 0.7 % on 08/16/2021 at 4:44 AM EDT. Performed By: #### 5 7021-8 ####[facility]ORATORYCLIA [id number] [address] Erythrocyte distribution width (RBC) [Ratio] Normal 11.5-15.0 [facility] Comment on above: Order Comment: Speci men Type: BLOOD SPECIMENOrdering Facility: [facility] Address: [address] [place] [address] Result Comment: Carolina Owens RN informed lab after results autoverified that she rd on the wrong patient. Lab to credit. Nurse to redraw on correct patient.Corrected result: Previously reported as 14.2 % on 08/16/2021 at 4:44 AM EDT. Performed By: #### 5 7021-8 ####[facility]ORATORYCLIA [id number] [address] Hematocrit (Bld) [Volume fraction] Normal 39.0-51.0 [facility] Comment on above: Order Comment: Speci men Type: BLOOD SPECIMENOrdering Facility: [facility] Address: [address] [place] [address] Result Comment: Carolina Owens RN informed lab after results autoverified that she rd on the wrong patient. Lab to credit. Nurse to redraw on correct patient.Corrected result: Previously reported as 34.3 % on 08/16/2021 at 4:44 AM EDT. Performed By: #### 5 7021-8 ####[facility]ORATORYCLIA [id number] [address] Hemoglobin (Bld) [Mass/Vol] Normal 13.0-17.0 [facility] Comment on above: Order Comment: Speci men Type: BLOOD SPECIMENOrdering Facility: [facility] Address: [address] [place] [address] Result Comment: Carolina Owens RN informed lab after results autoverified that she rd on the wrong patient. Lab to credit. Nurse to redraw on correct patient.Corrected result: Previously reported as 11.2 g/dL on 08/16/2021 at 4:44 AM EDT. Performed By: #### 5 7021-8 ####[facility]ORATORYCLIA [id number] [address] IMMATURE GRAN % Normal [facility] Comment on above: Order Comment: Speci men Type: BLOOD SPECIMENOrdering Facility: [facility] Address: [address] [place] [address] Result Comment: Carolina Owens RN informed lab after results autoverified that she rd on the wrong patient. Lab to credit. Nurse to redraw on correct patient.Corrected result: Previously reported as 0.8 % on 08/16/2021 at 4:44 AM EDT. Performed By: #### 5 7021-8 ####[facility]ORATORYCLIA [id number] [address] OF [facility] IMMATURE GRAN ABS Normal <0.10 [facility] Comment on above: Order Comment: Speci men Type: BLOOD SPECIMENOrdering Facility: [facility] Address: [address] [place] [address] Result Comment: Tati ected result: Previously reported as 0.08 k/uL on 08/16/2021 at 4:44 AM EDT. Performed By: #### 5 7021-8 ####[facility]ORATORYCLIA [id number] [address] Lymphocytes (Bld) [#/Vol] Normal 1.00-4.00 [facility] Comment on above: Order Comment: Speci men Type: BLOOD SPECIMENOrdering Facility: [facility] Address: [address] [place] [address] Result Comment: Carolina Owens RN informed lab after results autoverified that she rd on the wrong patient. Lab to credit. Nurse to redraw on correct patient.Corrected result: Previously reported as 1.17 k/uL on 08/16/2021 at 4:44 AM EDT. Performed By: #### 5 7021-8 ####[facility]ORATORYCLIA [id number] [address] Lymphocytes/100 WBC (Bld) Normal [facility] Comment on above: Order Comment: Speci men Type: BLOOD SPECIMENOrdering Facility: [facility] Address: [address] [place] [address] Result Comment: Carolina Owens RN informed lab after results autoverified that she rd on the wrong patient. Lab to credit. Nurse to redraw on correct patient.Corrected result: Previously reported as 12.0 % on 08/16/2021 at 4:44 AM EDT. Performed By: #### 5 7021-8 ####[facility]ORATORYCLIA [id number] [address] [place] MCHC (RBC) [Mass/Vol] Normal 30.5-36.0 [facility] Comment on above: Order Comment: Speci men Type: BLOOD SPECIMENOrdering Facility: [facility] Address: [address] [place] [address] Result Comment: aCrolina Owens RN informed lab after results autoverified that she rd on the wrong patient. Lab to credit. Nurse to redraw on correct patient.Corrected result: Previously reported as 32.7 g/dL on 08/16/2021 at 4:44 AM EDT. Performed By: #### 5 7021-8 ####[facility]ORATORYCLIA [id number] [address] [place] MCV (RBC) [Entitic vol] Normal 80.0-100.0 [facility] Comment on above: Order Comment: Speci men Type: BLOOD SPECIMENOrdering Facility: [facility] Address: [address] [place] [address] Result Comment: Carolina Owens RN informed lab after results autoverified that she rd on the wrong patient. Lab to credit. Nurse to redraw on correct patient.Corrected result: Previously reported as 94.2 fL on 08/16/2021 at 4:44 AM EDT. Performed By: #### 5 7021-8 ####[facility]ORATORYCLIA [id number] [address] STATES OF [facility] Monocytes (Bld) [#/Vol] Normal <0.87 [facility] Comment on above: Order Comment: Speci men Type: BLOOD SPECIMENOrdering Facility: [facility] Address: [address] [place] [address] Result Comment: Carolina Owens RN informed lab after results autoverified that she rd on the wrong patient. Lab to credit. Nurse to redraw on correct patient.Corrected result: Previously reported as 0.99 k/uL on 08/16/2021 at 4:44 AM EDT. Performed By: #### 5 7021-8 ####[facility]ORATORYCLIA [id number] [address] [place] Monocytes/100 WBC (Bld) Normal [facility] Comment on above: Order Comment: Speci men Type: BLOOD SPECIMENOrdering Facility: [facility] Address: [address] [place] [address] Result Comment: Carolina Owens RN informed lab after results autoverified that she rd on the wrong patient. Lab to credit. Nurse to redraw on correct patient.Corrected result: Previously reported as 10.2 % on 08/16/2021 at 4:44 AM EDT. Performed By: #### 5 7021-8 ####[facility]ATORYCLIA [id number] [address] [place] Neutrophils (Bld) [#/Vol] Normal 1.45-7.50 [facility] Comment on above: Order Comment: Speci men Type: BLOOD SPECIMENOrdering Facility: [facility] Address: [address] [place] [address] Result Comment: Carolina Owens RN informed lab after results autoverified that she rd on the wrong patient. Lab to credit. Nurse to redraw on correct patient.Corrected result: Previously reported as 7.40 k/uL on 08/16/2021 at 4:44 AM EDT. Performed By: #### 5 7021-8 ####[facility]ATORYCLIA [id number] [address] [place] Neutrophils/100 WBC (Bld) Normal [facility] Comment on above: Order Comment: Speci men Type: BLOOD SPECIMENOrdering Facility: [facility] Address: [address] [place] [address] Result Comment: Carolina Owens RN informed lab after results autoverified that she rd on the wrong patient. Lab to credit. Nurse to redraw on correct patient.Corrected result: Previously reported as 75.9 % on 08/16/2021 at 4:44 AM EDT. Performed By: #### 5 7021-8 ####[facility]ORATORYCLIA [id number] [place] [address] [place] Platelet mean volume (Bld) [Entitic vol] Normal 9.0-12.7 [facility] Comment on above: Order Comment: Speci men Type: BLOOD SPECIMENOrdering Facility: [facility] Address: [address] [place] [address] Result Comment: Carolina Owens RN informed lab after results autoverified that she rd on the wrong patient. Lab to credit. Nurse to redraw on correct patient.Corrected result: Previously reported as 9.1 fL on 08/16/2021 at 4:44 AM EDT. Performed By: #### 5 7021-8 ####[facility]ATORYCLIA [id number] [address] [place] Platelets (Bld) [#/Vol] Normal 150-400 [facility] Comment on above: Order Comment: Speci men Type: BLOOD SPECIMENOrdering Facility: [facility] Address: [address] [place] [address] Result Comment: Carolina Owens RN informed lab after results autoverified that she rd on the wrong patient. Lab to credit. Nurse to redraw on correct patient.Corrected result: Previously reported as 338 k/uL on 08/16/2021 at 4:44 AM EDT. Performed By: #### 5 7021-8 ####[facility] [facility]ATORYCLIA [id number] [place] [address] [place] RBC (Bld) [#/Vol] Normal 4.20-6.00 [facility] Comment on above: Order Comment: Speci men Type: BLOOD SPECIMENOrdering Facility: [facility] Address: [address] [place] [address] Result Comment: Carolina Owens RN informed lab after results autoverified that she rd on the wrong patient. Lab to credit. Nurse to redraw on correct patient.Corrected result: Previously reported as 3.64 m/uL on 08/16/2021 at 4:44 AM EDT. Performed By: #### 5 7021-8 ####[facility]ATORYCLIA [id number] [place] [address] [place] WBC (Bld) [#/Vol] Normal 3.70-11.00 [facility] Comment on above: Order Comment: Speci men Type: BLOOD SPECIMENOrdering Facility: [facility] Address: [address] [place] [address] Result Comment: Carolina Owens RN informed lab after results autoverified that she rd on the wrong patient. Lab to credit. Nurse to redraw on correct patient.Corrected result: Previously reported as 9.75 k/uL on 08/16/2021 at 4:44 AM EDT. Performed By: #### 5 7021-8 ####[facility] LABORATORYCLIA [id number] [address] CONSULT PROGon 08-16-2021 CONSULT PROG Normal [facility] Magnesium SerPl-mCncon 08-16 Magnesium [Mass/Vol] 1.8 mg/dL Normal 1.7-2.3 [facility] Comment on above: Order Comment: Speci men Type: BLOOD SPECIMENOrdering Facility: [facility] Address: [address] [place] [address] Performed By: #### 2 4321-2, 70616-3 ####[facility] LABORATORYCLIA [id number] [address] [place] NURSING PROGon 08-16-2021 NURSING PROG Normal [facility] Basic metabolic 2000 panelon 08-15-2021 Anion gap [Moles/Vol] 13 mmol/L Normal 9-18 [facility] Comment on above: Order Comment: Speci men Type: BLOOD SPECIMENOrdering Facility: [facility] Address: [address] [place] [address] Performed By: #### 2 4321-2 ####[facility] LABORATORYCLIA [id number] [address] STATES OF [facility] Calcium [Mass/Vol] 9.0 mg/dL Normal 8.5-10.2 [facility] Comment on above: Order Comment: Speci men Type: BLOOD SPECIMENOrdering Facility: [facility] Address: [address] [place] [address] Performed By: #### 2 4321-2 ####[facility] LABORATORYCLIA [id number] [address] Chloride [Moles/Vol] 95 mmol/L Low 97-105 [facility] Comment on above: Order Comment: Speci men Type: BLOOD SPECIMENOrdering Facility: [facility] Address: [address] [place] [address] Performed By: #### 2 4321-2 ####[facility] LABORATORYCLIA [id number] [address] CO2 [Moles/Vol] 28 mmol/L Normal 22-30 [facility] Comment on above: Order Comment: Speci men Type: BLOOD SPECIMENOrdering Facility: [facility] Address: [address] [place] [address] Performed By: #### 2 4321-2 ####[facility] [id number] [address] Creatinine [Mass/Vol] 0.50 mg/dL Low 0.73-1.22 [facility] Comment on above: Order Comment: Speci men Type: BLOOD SPECIMENOrdering Facility: [facility] Address: [address] [place] [address] Performed By: #### 2 4321-2 ####[facility] LABORATORYCLIA [id number] [address] ESTIMATED GLOMERULAR FILTRATION RATE 110 mL/min/1.73m??? Normal >=60 [facility] Comment on above: Order Comment: Speci men Type: BLOOD SPECIMENOrdering Facility: [facility] Address: [address] [place] [address] Result Comment: Luzmaria mated Glomerular Filtration Rate [...] #### 2 4321-2 ####[facility] LABORATORYCLIA [id number] [place] [address] [place] Glucose [Mass/Vol] 106 mg/dL High 74-99 [facility] Comment on above: Order Comment: Shira feldman Type: BLOOD SPECIMENOrdering Facility: [facility] Address: [address] [place] [address] Result Comment: The [place] [employer] (ADA) provides guidance for cutoff [...] Standards of Medical Care in Diabetes 2016, [place] [employer]. Diabetes Care. 2016.39(Suppl 1). Performed By: #### 2 4321-2 ####[facility]ORATORYCLIA [id number] [place] [address] [place] Potassium [Moles/Vol] 3.3 mmol/L Low 3.7-5.1 [facility] Comment on above: Order Comment: Shira feldman Type: BLOOD SPECIMENOrdering Facility: [facility] Address: [address] [place] [address] Performed By: #### 2 4321-2 ####[facility]ORATORYCLIA [id number] [place] [address] [place] Sodium [Moles/Vol] 136 mmol/L Normal 136-144 [facility] Comment on above: Order Comment: Shira men Type: BLOOD SPECIMENOrdering Facility: [facility] Address: [address] [place] [address] Performed By: #### 2 4321-2 ####[facility]ORATORYCLIA [id number] [place] [address] [place] Urea nitrogen [Mass/Vol] 11 mg/dL Normal 9-24 [facility] Comment on above: Order Comment: Speci men Type: BLOOD SPECIMENOrdering Facility: [facility] Address: [address] [place] [address] Performed By: #### 2 4321-2 ####[facility]ORATORYCLIA [id number] [address] [place] CASE MANAGEMon 08-15-2021 CASE MANAGEM Normal [facility] CBC W Auto Differential pane l (Bld)on 08-15-2021 Basophils (Bld) [#/Vol] 0.03 10*3/uL Normal <0.11 [facility] Comment on above: Order Comment: Speci men Type: BLOOD SPECIMENOrdering Facility: [facility] Address: [address] [place] [address] Performed By: #### 5 7021-8 ####[facility]ORATORYCLIA [id number] [address] [place] Basophils/100 WBC (Bld) 0.4 % Normal [facility] Comment on above: Order Comment: Speci men Type: BLOOD SPECIMENOrdering Facility: [facility] Address: [address] [place] [address] Performed By: #### 5 7021-8 ####[facility]ORATORYCLIA [id number] [address] [place] Differential cell count method Nom (Bld) Auto Normal [facility] Comment on above: Order Comment: Speci men Type: BLOOD SPECIMENOrdering Facility: [facility] Address: [address] [place] [address] Performed By: #### 5 7021-8 ####[facility]ORATORYCLIA [id number] [place] [address] [place] Eosinophils (Bld) [#/Vol] 0.20 10*3/uL Normal <0.46 [facility] Comment on above: Order Comment: Speci men Type: BLOOD SPECIMENOrdering Facility: [facility] Address: [address] [place] [address] Performed By: #### 5 7021-8 ####[facility]ORATORYCLIA [id number] [address] STATES [facility] Eosinophils/100 WBC (Bld) 2.5 % Normal [facility] Comment on above: Order Comment: Speci men Type: BLOOD SPECIMENOrdering Facility: [facility] Address: [address] [place] [address] Performed By: #### 5 7021-8 ####[facility]ORATORYCLIA [id number] [address] Erythrocyte distribution width (RBC) [Ratio] 16.7 % High 11.5-15.0 [facility] Comment on above: Order Comment: Speci men Type: BLOOD SPECIMENOrdering Facility: [facility] Address: [address] [place] [address] Performed By: #### 5 7021-8 ####[facility]ORATORYCLIA [id number] [address] Hematocrit (Bld) [Volume fraction] 30.3 % Low 39.0-51.0 [facility] Comment on above: Order Comment: Speci men Type: BLOOD SPECIMENOrdering Facility: [facility] Address: [address] [place] [address] Performed By: #### 5 7021-8 ####[facility]ORATORYCLIA [id number] [address] [place] Hemoglobin (Bld) [Mass/Vol] 9.4 g/dL Low 13.0-17.0 [facility] Comment on above: Order Comment: Speci men Type: BLOOD SPECIMENOrdering Facility: [facility] Address: [address] [place] [address] Performed By: #### 5 7021-8 ####[facility]ORATORYCLIA [id number] [address] [place] IMMATURE GRAN % 0.4 % Normal [facility] Comment on above: Order Comment: Speci men Type: BLOOD SPECIMENOrdering Facility: [facility] Address: [address] [place] [address] Performed By: #### 5 7021-8 ####[facility]ORATORYCLIA [id number] [address] IMMATURE GRAN ABS 0.03 k/uL Normal <0.10 [facility] Comment on above: Order Comment: Speci men Type: BLOOD SPECIMENOrdering Facility: [facility] Address: [address] [place] [address] Performed By: #### 5 7021-8 ####[facility] LABORATORYCLIA [id number] [address] Lymphocytes (Bld) [#/Vol] 1.50 10*3/uL Normal 1.00-4.00 [facility] Comment on above: Order Comment: Speci men Type: BLOOD SPECIMENOrdering Facility: [facility] Address: [address] [place] [address] Performed By: #### 5 7021-8 ####[facility]ORATORYCLIA [id number] [address] Lymphocytes/100 WBC (Bld) 18.5 % Normal [facility] Comment on above: Order Comment: Speci men Type: BLOOD SPECIMENOrdering Facility: [facility] Address: [address] [place] [address] Performed By: #### 5 7021-8 ####[facility]ORATORYCLIA [id number] [address] MCH (RBC) [Entitic mass] 29.0 pg Normal 26.0-34.0 [facility] Comment on above: Order Comment: Speci men Type: BLOOD SPECIMENOrdering Facility: [facility] Address: [address] [place] [address] Performed By: #### 5 7021-8 ####[facility]ORATORYCLIA [id number] [address] MCHC (RBC) [Mass/Vol] 31.0 g/dL Normal 30.5-36.0 [facility] Comment on above: Order Comment: Speci men Type: BLOOD SPECIMENOrdering Facility: [facility] Address: [address] [place] [address] Performed By: #### 5 7021-8 ####[facility]ORATORYCLIA [id number] [address] [place] MCV (RBC) [Entitic vol] 93.5 fL Normal 80.0-100.0 [facility] Comment on above: Order Comment: Speci men Type: BLOOD SPECIMENOrdering Facility: [facility] Address: [address] [place] [address] Performed By: #### 5 7021-8 ####[facility]ORATORYCLIA [id number] [address] [place] Monocytes (Bld) [#/Vol] 0.47 10*3/uL Normal <0.87 [facility] Comment on above: Order Comment: Speci men Type: BLOOD SPECIMENOrdering Facility: [facility] Address: [address] [place] [address] Performed By: #### 5 7021-8 ####[facility]ORATORYCLIA [id number] [address] [place] Monocytes/100 WBC (Bld) 5.8 % Normal [facility] Comment on above: Order Comment: Speci men Type: BLOOD SPECIMENOrdering Facility: [facility] Address: [address] [place] [address] Performed By: #### 5 7021-8 ####[facility]ORATORYCLIA [id number] [address] [place] Neutrophils (Bld) [#/Vol] 5.87 10*3/uL Normal 1.45-7.50 [facility] Comment on above: Order Comment: Speci men Type: BLOOD SPECIMENOrdering Facility: [facility] Address: [address] [place] [address] Performed By: #### 5 7021-8 ####[facility]ORYCLIA [id number] [address] [place] Neutrophils/100 WBC (Bld) 72.4 % Normal [facility] Comment on above: Order Comment: Speci men Type: BLOOD SPECIMENOrdering Facility: [facility] Address: [address] [place] [address] Performed By: #### 5 7021-8 ####[facility]ATORYCLIA [id number] [address] [place] Nucleated RBC (Bld) [#/Vol] 10*3/uL Normal <0.01 [facility] Comment on above: Order Comment: Speci men Type: BLOOD SPECIMENOrdering Facility: [facility] Address: [address] [place] [address] Performed By: #### 5 7021-8 ####[facility]ATORYCLIA [id number] [address] Nucleated RBC/100 WBC (Bld) [Ratio] 0.0 /100 WBC Normal [facility] Comment on above: Order Comment: Speci men Type: BLOOD SPECIMENOrdering Facility: [facility] Address: [address] [place] [address] Performed By: #### 5 7021-8 ####[facility]ORATORYCLIA [id number] [address] [place] Platelet mean volume (Bld) [Entitic vol] 9.4 fL Normal 9.0-12.7 [facility] Comment on above: Order Comment: Speci men Type: BLOOD SPECIMENOrdering Facility: [facility] Address: [address] [place] [address] Performed By: #### 5 7021-8 ####[facility]ATORYCLIA [id number] [address] [place] Platelets (Bld) [#/Vol] 290 10*3/uL Normal 150-400 [facility] Comment on above: Order Comment: Speci men Type: BLOOD SPECIMENOrdering Facility: [facility] Address: [address] [place] [address] Performed By: #### 5 7021-8 ####[facility]ORATORYCLIA [id number] [address] OF [facility] RBC (Bld) [#/Vol] 3.24 10*6/uL Low 4.20-6.00 [facility] Comment on above: Order Comment: Speci men Type: BLOOD SPECIMENOrdering Facility: [facility] Address: [address] [place] [address] Performed By: #### 5 7021-8 ####[facility]ATORYCLIA [id number] [address] OF [facility] WBC (Bld) [#/Vol] 8.10 10*3/uL Normal 3.70-11.00 [facility] Comment on above: Order Comment: Speci men Type: BLOOD SPECIMENOrdering Facility: [facility] Address: [address] [place] [address] Performed By: #### 5 7021-8 ####[facility]ORATORYCLIA [id number] [address] OF [facility] THERAPY NTon 08-15-2021 THERAPY NT Normal [facility] THERAPY NT Normal [facility] THERAPY NT Normal [facility] Basic metabolic 2000 panelon 08-14-2021 Anion gap [Moles/Vol] 10 mmol/L Normal 9-18 [facility] Comment on above: Order Comment: Speci men Type: BLOOD SPECIMENOrdering Facility: [facility] Address: [address] [place] [address] Performed By: #### 2 4321-2 ####[facility]ATORYCLIA [id number] [address] Calcium [Mass/Vol] 8.8 mg/dL Normal 8.5-10.2 [facility] Comment on above: Order Comment: Speci men Type: BLOOD SPECIMENOrdering Facility: [facility] Address: [address] [place] [address] Performed By: #### 2 4321-2 ####[facility]ORATORYCLIA [id number] [address] STATES OF [facility] Chloride [Moles/Vol] 92 mmol/L Low 97-105 [facility] Comment on above: Order Comment: Speci men Type: BLOOD SPECIMENOrdering Facility: [facility] Address: [address] [place] [address] Performed By: #### 2 4321-2 ####[facility]ATORYCLIA [id number] [address] [place] CO2 [Moles/Vol] 29 mmol/L Normal 22-30 [facility] Comment on above: Order Comment: Speci men Type: BLOOD SPECIMENOrdering Facility: [facility] Address: [address] [place] [address] Performed By: #### 2 4321-2 ####[facility]ORATORYCLIA [id number] [address] Creatinine [Mass/Vol] 0.49 mg/dL Low 0.73-1.22 [facility] Comment on above: Order Comment: Speci men Type: BLOOD SPECIMENOrdering Facility: [facility] Address: [address] [place] [address] Performed By: #### 2 4321-2 ####[facility]ORATORYCLIA [id number] [address] ESTIMATED GLOMERULAR FILTRATION RATE 111 mL/min/1.73m??? Normal >=60 [facility] Comment on above: Order Comment: Speci men Type: BLOOD SPECIMENOrdering Facility: [facility] Address: [address] [place] [address] Result Comment: Luzmaria mated Glomerular Filtration Rate [...] #### 2 4321-2 ####[facility]ORATORYCLIA [id number] [place] [address] [place] Glucose [Mass/Vol] 104 mg/dL High 74-99 [facility] Comment on above: Order Comment: Shira francia Type: BLOOD SPECIMENOrdering Facility: [facility] Address: [address] [place] [address] Result Comment: The [place] [employer] (ADA) provides guidance for cutoff [...] Standards of Medical Care in Diabetes 2016, [place] [employer]. Diabetes Care. 2016.39(Suppl 1). Performed By: #### 2 4321-2 ####[facility]ATORYCLIA [id number] [place] [address] [place] Potassium [Moles/Vol] 3.1 mmol/L Low 3.7-5.1 [facility] Comment on above: Order Comment: Shira feldman Type: BLOOD SPECIMENOrdering Facility: [facility] Address: [address] [address] Performed By: #### 2 4321-2 ####[facility]ORATORYCLIA [id number] [place] [address] [place] Sodium [Moles/Vol] 131 mmol/L Low 136-144 [facility] Comment on above: Order Comment: Shira feldman Type: BLOOD SPECIMENOrdering Facility: [facility] Address: [address] [address] Performed By: #### 2 4321-2 ####[facility]ORATORYCLIA [id number] [place] [address] [place] Urea nitrogen [Mass/Vol] 13 mg/dL Normal 9-24 [facility] Comment on above: Order Comment: Speci men Type: BLOOD SPECIMENOrdering Facility: [facility] Address: [address] [place] [address] Performed By: #### 2 4321-2 ####[facility]ATORYCLIA [id number] [place] [address] [place] CBC W Auto Differential pane l (Bld)on 08-14-2021 Basophils (Bld) [#/Vol] 10*3/uL Normal <0.11 [facility] Comment on above: Order Comment: Speci men Type: BLOOD SPECIMENOrdering Facility: [facility] Address: [address] [place] [address] Performed By: #### 5 7021-8 ####[facility]ATORYCLIA [id number] [place] [address] [place] Basophils/100 WBC (Bld) 0.2 % Normal [facility] Comment on above: Order Comment: Speci men Type: BLOOD SPECIMENOrdering Facility: [facility] Address: [address] [place] [address] Performed By: #### 5 7021-8 ####[facility]ORATORYCLIA [id number] [address] STATES [facility] Differential cell count method Nom (Bld) Auto Normal [facility] Comment on above: Order Comment: Speci men Type: BLOOD SPECIMENOrdering Facility: [facility] Address: [address] [place] [address] Performed By: #### 5 7021-8 ####[facility]ORATORYCLIA [id number] [place] [address] [place] Eosinophils (Bld) [#/Vol] 0.23 10*3/uL Normal <0.46 [facility] Comment on above: Order Comment: Speci men Type: BLOOD SPECIMENOrdering Facility: [facility] Address: [address] [address] Performed By: #### 5 7021-8 ####[facility] LABORATORYCLIA [id number] [address] STATES [facility] Eosinophils/100 WBC (Bld) 2.7 % Normal [facility] Comment on above: Order Comment: Speci men Type: BLOOD SPECIMENOrdering Facility: [facility] Address: [address] [place] [address] Performed By: #### 5 7021-8 ####[facility]ORATORYCLIA [id number] [address] [place] Erythrocyte distribution width (RBC) [Ratio] 16.6 % High 11.5-15.0 [facility] Comment on above: Order Comment: Speci men Type: BLOOD SPECIMENOrdering Facility: [facility] Address: [address] [place] [address] Performed By: #### 5 7021-8 ####[facility]ORATORYCLIA [id number] [address] Hematocrit (Bld) [Volume fraction] 28.6 % Low 39.0-51.0 [facility] Comment on above: Order Comment: Speci men Type: BLOOD SPECIMENOrdering Facility: [facility] Address: [address] [place] [address] Performed By: #### 5 7021-8 ####[facility]ORATORYCLIA [id number] [address] [place] Hemoglobin (Bld) [Mass/Vol] 9.0 g/dL Low 13.0-17.0 [facility] Comment on above: Order Comment: Speci men Type: BLOOD SPECIMENOrdering Facility: [facility] Address: [address] [place] [address] Performed By: #### 5 7021-8 ####[facility]ORATORYCLIA [id number] [address] [place] IMMATURE GRAN % 0.2 % Normal [facility] Comment on above: Order Comment: Speci men Type: BLOOD SPECIMENOrdering Facility: [facility] Address: [address] [place] [address] Performed By: #### 5 7021-8 ####[facility]ORATORYCLIA [id number] [address] STATES [facility] IMMATURE GRAN ABS <0.03 Normal <0.10 [facility] Comment on above: Order Comment: Speci men Type: BLOOD SPECIMENOrdering Facility: [facility] Address: [address] [place] [address] Performed By: #### 5 7021-8 ####[facility]ATORYCLIA [id number] [address] Lymphocytes (Bld) [#/Vol] 1.33 10*3/uL Normal 1.00-4.00 [facility] Comment on above: Order Comment: Speci men Type: BLOOD SPECIMENOrdering Facility: [facility] Address: [address] [place] [address] Performed By: #### 5 7021-8 ####[facility]ORATORYCLIA [id number] [address] Lymphocytes/100 WBC (Bld) 15.6 % Normal [facility] Comment on above: Order Comment: Speci men Type: BLOOD SPECIMENOrdering Facility: [facility] Address: [address] [place] [address] Performed By: #### 5 7021-8 ####[facility]ORATORYCLIA [id number] [address] MCH (RBC) [Entitic mass] 29.0 pg Normal 26.0-34.0 [facility] Comment on above: Order Comment: Speci men Type: BLOOD SPECIMENOrdering Facility: [facility] Address: [address] [place] [address] Performed By: #### 5 7021-8 ####[facility]ATORYCLIA [id number] [address] MCHC (RBC) [Mass/Vol] 31.5 g/dL Normal 30.5-36.0 [facility] Comment on above: Order Comment: Speci men Type: BLOOD SPECIMENOrdering Facility: [facility] Address: [address] [place] [address] Performed By: #### 5 7021-8 ####[facility]ATORYCLIA [id number] [address] [place] MCV (RBC) [Entitic vol] 92.3 fL Normal 80.0-100.0 [facility] Comment on above: Order Comment: Speci men Type: BLOOD SPECIMENOrdering Facility: [facility] Address: [address] [place] [address] Performed By: #### 5 7021-8 ####[facility]ATORYCLIA [id number] [address] [place] Monocytes (Bld) [#/Vol] 0.44 10*3/uL Normal <0.87 [facility] Comment on above: Order Comment: Speci men Type: BLOOD SPECIMENOrdering Facility: [facility] Address: [address] [place] [address] Performed By: #### 5 7021-8 ####[facility]ATORYCLIA [id number] [address] [place] Monocytes/100 WBC (Bld) 5.2 % Normal [facility] Comment on above: Order Comment: Speci men Type: BLOOD SPECIMENOrdering Facility: [facility] Address: [address] [place] [address] Performed By: #### 5 7021-8 ####[facility] LABORATORYCLIA [id number] [address] [place] Neutrophils (Bld) [#/Vol] 6.46 10*3/uL Normal 1.45-7.50 [facility] Comment on above: Order Comment: Speci men Type: BLOOD SPECIMENOrdering Facility: [facility] Address: [address] [place] [address] Performed By: #### 5 7021-8 ####[facility] LABORATORYCLIA [id number] [address] Neutrophils/100 WBC (Bld) 76.1 % Normal [facility] Comment on above: Order Comment: Speci men Type: BLOOD SPECIMENOrdering Facility: [facility] Address: [address] [place] [address] Performed By: #### 5 7021-8 ####[facility] LABORATORYCLIA [id number] [address] Nucleated RBC (Bld) [#/Vol] 10*3/uL Normal <0.01 [facility] Comment on above: Order Comment: Speci men Type: BLOOD SPECIMENOrdering Facility: [facility] Address: [address] [place] [address] Performed By: #### 5 7021-8 ####[facility] LABORATORYCLIA [id number] [address] Nucleated RBC/100 WBC (Bld) [Ratio] 0.0 /100 WBC Normal [facility] Comment on above: Order Comment: Speci men Type: BLOOD SPECIMENOrdering Facility: [facility] Address: [address] [place] [address] Performed By: #### 5 7021-8 ####[facility] LABORATORYCLIA [id number] [address] [place] Platelet mean volume (Bld) [Entitic vol] 9.5 fL Normal 9.0-12.7 [facility] Comment on above: Order Comment: Speci men Type: BLOOD SPECIMENOrdering Facility: [facility] Address: [address] [place] [address] Performed By: #### 5 7021-8 ####[facility] LABORATORYCLIA [id number] [address] [place] Platelets (Bld) [#/Vol] 247 10*3/uL Normal 150-400 [facility] Comment on above: Order Comment: Speci men Type: BLOOD SPECIMENOrdering Facility: [facility] Address: [address] [place] [address] Performed By: #### 5 7021-8 ####[facility] LABORATORYCLIA [id number] [place] [address] [place] RBC (Bld) [#/Vol] 3.10 10*6/uL Low 4.20-6.00 [facility] Comment on above: Order Comment: Speci men Type: BLOOD SPECIMENOrdering Facility: [facility] Address: [address] [place] [address] Performed By: #### 5 7021-8 ####[facility]ORATORYCLIA [id number] [address] [place] WBC (Bld) [#/Vol] 8.50 10*3/uL Normal 3.70-11.00 [facility] Comment on above: Order Comment: Speci men Type: BLOOD SPECIMENOrdering Facility: [facility] Address: [address] [place] [address] Performed By: #### 5 7021-8 ####[facility]ORATORYCLIA [id number] [place] [address] [place] CONSULTon 08-14-2021 CONSULT Normal [facility] NURSING PROGon 08-14-2021 NURSING PROG Normal [facility] CBC W Auto Differential pane l (Bld)on 08-13-2021 Basophils (Bld) [#/Vol] 10*3/uL Normal <0.11 [facility] Comment on above: Order Comment: Speci men Type: BLOOD SPECIMENOrdering Facility: [facility] Address: [address] [place] [address] Performed By: #### 5 7021-8 ####[facility]ORATORYCLIA [id number] [address] [place] Basophils/100 WBC (Bld) 0.2 % Normal [facility] Comment on above: Order Comment: Speci men Type: BLOOD SPECIMENOrdering Facility: [facility] Address: [address] [address] Performed By: #### 5 7021-8 ####[facility]ORATORYCLIA [id number] [address] Differential cell count method Nom (Bld) Auto Normal [facility] Comment on above: Order Comment: Speci men Type: BLOOD SPECIMENOrdering Facility: [facility] Address: [address] [place] [address] Performed By: #### 5 7021-8 ####[facility]ORATORYCLIA [id number] [address] [place] Eosinophils (Bld) [#/Vol] 0.31 10*3/uL Normal <0.46 [facility] Comment on above: Order Comment: Speci men Type: BLOOD SPECIMENOrdering Facility: [facility] Address: [address] [place] [address] Performed By: #### 5 7021-8 ####[facility] LABORATORYCLIA [id number] [address] Eosinophils/100 WBC (Bld) 3.7 % Normal [facility] Comment on above: Order Comment: Speci men Type: BLOOD SPECIMENOrdering Facility: [facility] Address: [address] [place] [address] Performed By: #### 5 7021-8 ####[facility] LABORATORYCLIA [id number] [address] [place] Erythrocyte distribution width (RBC) [Ratio] 16.6 % High 11.5-15.0 [facility] Comment on above: Order Comment: Speci men Type: BLOOD SPECIMENOrdering Facility: [facility] Address: [address] [place] [address] Performed By: #### 5 7021-8 ####[facility]ORATORYCLIA [id number] [address] [place] Hematocrit (Bld) [Volume fraction] 27.5 % Low 39.0-51.0 [facility] Comment on above: Order Comment: Speci men Type: BLOOD SPECIMENOrdering Facility: [facility] Address: [address] [place] [address] Performed By: #### 5 7021-8 ####[facility]ORATORYCLIA [id number] [address] [place] Hemoglobin (Bld) [Mass/Vol] 8.4 g/dL Low 13.0-17.0 [facility] Comment on above: Order Comment: Speci men Type: BLOOD SPECIMENOrdering Facility: [facility] Address: [address] [place] [address] Performed By: #### 5 7021-8 ####[facility] LABORATORYCLIA [id number] [address] IMMATURE GRAN % 0.5 % Normal [facility] Comment on above: Order Comment: Speci men Type: BLOOD SPECIMENOrdering Facility: [facility] Address: [address] [place] [address] Performed By: #### 5 7021-8 ####[facility] LABORATORYCLIA [id number] [address] IMMATURE GRAN ABS 0.04 k/uL Normal <0.10 [facility] Comment on above: Order Comment: Speci men Type: BLOOD SPECIMENOrdering Facility: [facility] Address: [address] [place] [address] Performed By: #### 5 7021-8 ####[facility]ORATORYCLIA [id number] [address] [place] Lymphocytes (Bld) [#/Vol] 1.55 10*3/uL Normal 1.00-4.00 [facility] Comment on above: Order Comment: Speci men Type: BLOOD SPECIMENOrdering Facility: [facility] Address: [address] [place] [address] Performed By: #### 5 7021-8 ####[facility] LABORATORYCLIA [id number] [address] Lymphocytes/100 WBC (Bld) 18.7 % Normal [facility] Comment on above: Order Comment: Speci men Type: BLOOD SPECIMENOrdering Facility: [facility] Address: [address] [place] [address] Performed By: #### 5 7021-8 ####[facility] LABORATORYCLIA [id number] [address] STATES OF [facility] MCH (RBC) [Entitic mass] 28.9 pg Normal 26.0-34.0 [facility] Comment on above: Order Comment: Speci men Type: BLOOD SPECIMENOrdering Facility: [facility] Address: [address] [place] [address] Performed By: #### 5 7021-8 ####[facility]ORATORYCLIA [id number] [address] MCHC (RBC) [Mass/Vol] 30.5 g/dL Normal 30.5-36.0 [facility] Comment on above: Order Comment: Speci men Type: BLOOD SPECIMENOrdering Facility: [facility] Address: [address] [place] [address] Performed By: #### 5 7021-8 ####[facility]ORATORYCLIA [id number] [address] MCV (RBC) [Entitic vol] 94.5 fL Normal 80.0-100.0 [facility] Comment on above: Order Comment: Speci men Type: BLOOD SPECIMENOrdering Facility: [facility] Address: [address] [place] [address] Performed By: #### 5 7021-8 ####[facility]ORATORYCLIA [id number] [address] Monocytes (Bld) [#/Vol] 0.47 10*3/uL Normal <0.87 [facility] Comment on above: Order Comment: Speci men Type: BLOOD SPECIMENOrdering Facility: [facility] Address: [address] [place] [address] Performed By: #### 5 7021-8 ####[facility]ORATORYCLIA [id number] [address] [place] Monocytes/100 WBC (Bld) 5.7 % Normal [facility] Comment on above: Order Comment: Speci men Type: BLOOD SPECIMENOrdering Facility: [facility] Address: [address] [place] [address] Performed By: #### 5 7021-8 ####[facility]ATORYCLIA [id number] [address] [place] Neutrophils (Bld) [#/Vol] 5.92 10*3/uL Normal 1.45-7.50 [facility] Comment on above: Order Comment: Speci men Type: BLOOD SPECIMENOrdering Facility: [facility] Address: [address] [place] [address] Performed By: #### 5 7021-8 ####[facility]ATORYCLIA [id number] [address] Neutrophils/100 WBC (Bld) 71.2 % Normal [facility] Comment on above: Order Comment: Speci men Type: BLOOD SPECIMENOrdering Facility: [facility] Address: [address] [place] [address] Performed By: #### 5 7021-8 ####[facility]ORATORYCLIA [id number] [address] [place] Nucleated RBC (Bld) [#/Vol] 10*3/uL Normal <0.01 [facility] Comment on above: Order Comment: Speci men Type: BLOOD SPECIMENOrdering Facility: [facility] Address: [address] [place] [address] Performed By: #### 5 7021-8 ####[facility]ORATORYCLIA [id number] [address] Nucleated RBC/100 WBC (Bld) [Ratio] 0.0 /100 WBC Normal [facility] Comment on above: Order Comment: Speci men Type: BLOOD SPECIMENOrdering Facility: [facility] Address: [address] [place], [place] [address] Performed By: #### 5 7021-8 ####[facility] LABORATORYCLIA [id number] [address] STATES [facility] Platelet mean volume (Bld) [Entitic vol] 9.9 fL Normal 9.0-12.7 [facility] Comment on above: Order Comment: Speci men Type: BLOOD SPECIMENOrdering Facility: [facility] Address: [address] [place] [address] Performed By: #### 5 7021-8 ####[facility]ORATORYCLIA [id number] [address] [place] Platelets (Bld) [#/Vol] 203 10*3/uL Normal 150-400 [facility] Comment on above: Order Comment: Speci men Type: BLOOD SPECIMENOrdering Facility: [facility] Address: [address] [place] [address] Performed By: #### 5 7021-8 ####[facility]ORATORYCLIA [id number] [place] [address] [place] RBC (Bld) [#/Vol] 2.91 10*6/uL Low 4.20-6.00 [facility] Comment on above: Order Comment: Speci men Type: BLOOD SPECIMENOrdering Facility: [facility] Address: [address] [place], [place] [address] Performed By: #### 5 7021-8 ####[facility]ORATORYCLIA [id number] [address] [place] WBC (Bld) [#/Vol] 8.31 10*3/uL Normal 3.70-11.00 [facility] Comment on above: Order Comment: Speci men Type: BLOOD SPECIMENOrdering Facility: [facility] Address: [address] [place] [address] Performed By: #### 5 7021-8 ####[facility]ORATORYCLIA [id number] [address] [place] aPTT PPPon 08-13-2021 aPTT Coag (PPP) [Time] 69.7 s High 23.0-32.4 [facility] Comment on above: Order Comment: Speci men Type: BLOOD SPECIMENOrdering Facility: [facility] Address: [address] [place] [address] Performed By: #### 1 4979-9 ####[facility]ORATORYCLIA [id number] [address] [place] [facility] aPTT Coag (PPP) [Time] 70.6 s High 23.0-32.4 [facility] Comment on above: Order Comment: Speci men Type: BLOOD SPECIMENOrdering Facility: [facility] Address: [address] [place] [address] Performed By: #### 1 4979-9 ####[facility]ORATORYCLIA [id number] [address] [place] ALLIED HEALTHon 08-12-2021 ALLIED HEALTH Normal [facility] ALLIED HEALTH Normal [facility] Basic metabolic 2000 panelon 08-12-2021 Anion gap [Moles/Vol] 7 mmol/L Low 9-18 [facility] Comment on above: Order Comment: Speci men Type: BLOOD SPECIMENOrdering Facility: [facility] Address: [address] [place] [address] Performed By: #### 2 4321-2, , 2776-05 ####[facility]ORATORYCLIA [id number] [place] [address] [place] Calcium [Mass/Vol] 8.8 mg/dL Normal 8.5-10.2 [facility] Comment on above: Order Comment: Speci men Type: BLOOD SPECIMENOrdering Facility: [facility] Address: [address] [place] [address] Performed By: #### 2 4321-2, 06429-7, 2777-1 ####[facility]ORATORYCLIA [id number] [address] [place] [facility] Chloride [Moles/Vol] 96 mmol/L Low 97-105 [facility] Comment on above: Order Comment: Speci men Type: BLOOD SPECIMENOrdering Facility: [facility] Address: [address] [place] [address] Performed By: #### 2 4321-2, , 2776-05 ####[facility]ORATORYCLIA [id number] [address] STATES [place] [facility] CO2 [Moles/Vol] 32 mmol/L High 22-30 [facility] Comment on above: Order Comment: Speci men Type: BLOOD SPECIMENOrdering Facility: [facility] Address: [address] [place] [address] Performed By: #### 2 4321-2, , 2776-05 ####[facility]ORATORYCLIA [id number] [address] Creatinine [Mass/Vol] 0.52 mg/dL Low 0.73-1.22 [facility] Comment on above: Order Comment: Speci men Type: BLOOD SPECIMENOrdering Facility: [facility] Address: [address] [place] [address] Performed By: #### 2 4321-2, , 2776-05 ####[facility]ORATORYCLIA [id number] [address] ESTIMATED GLOMERULAR FILTRATION RATE 109 mL/min/1.73m??? Normal >=60 [facility] Comment on above: Order Comment: Speci men Type: BLOOD SPECIMENOrdering Facility: [facility] Address: [address] [place] [address] Result Comment: Luzmaria mated Glomerular Filtration Rate [...] 4321-2, , 2776-05 ####[facility] LABORATORYCLIA [id number] [place] [address] [place] Glucose [Mass/Vol] 119 mg/dL High 74-99 [facility] Comment on above: Order Comment: Speci men Type: BLOOD SPECIMENOrdering Facility: [facility] Address: [address] [place] [address] Result Comment: The [place] [employer] (ADA) provides guidance for cutoff [...] Standards of Medical Care in Diabetes 2016, [place] [employer]. Diabetes Care. 2016.39(Suppl 1). Performed By: #### 2 4321-2, , 2776-05 ####[facility]ORATORYCLIA [id number] [place] [address] [place] Potassium [Moles/Vol] 3.7 mmol/L Normal 3.7-5.1 [facility] Comment on above: Order Comment: Speci men Type: BLOOD SPECIMENOrdering Facility: [facility] Address: [address] Performed By: #### 2 4321-2, , 2776-05 ####[facility] LABORATORYCLIA [id number] [place] [id number] [place] Sodium [Moles/Vol] 135 mmol/L Low 136-144 [facility] Comment on above: Order Comment: Johni men Type: BLOOD SPECIMENOrdering Facility: [facility] Address: [address] [place] [address] Performed By: #### 2 4321-2, 80894-2, 2776- ####[facility]ORATORYCLIA [id number] [place] [address] [place] [facility] Urea nitrogen [Mass/Vol] 20 mg/dL Normal 9-24 [facility] Comment on above: Order Comment: Speci men Type: BLOOD SPECIMENOrdering Facility: [facility] Address: [address] [place] [address] Performed By: #### 2 4321-2, , 2776-05 ####[facility]ORATORYCLIA [id number] [address] [place] CASE MANAGEMon 08-12-2021 CASE MANAGEM Normal [facility] CBC W Auto Differential pane l (Bld)on 08-12-2021 Basophils (Bld) [#/Vol] 0.04 10*3/uL Normal <0.11 [facility] Comment on above: Order Comment: Speci men Type: BLOOD SPECIMENOrdering Facility: [facility] Address: [address] [place] [address] Performed By: #### 5 7021-8 ####[facility]ORATORYCLIA [id number] [address] STATES [facility] Basophils/100 WBC (Bld) 0.5 % Normal [facility] Comment on above: Order Comment: Speci men Type: BLOOD SPECIMENOrdering Facility: [facility] Address: [address] [place] [address] Performed By: #### 5 7021-8 ####[facility]ATORYCLIA [id number] [address] [place] Differential cell count method Nom (Bld) Auto Normal [facility] Comment on above: Order Comment: Speci men Type: BLOOD SPECIMENOrdering Facility: [facility] Address: [address] [place] [address] Performed By: #### 5 7021-8 ####[facility] LABORATORYCLIA [id number] [place] [address] [place] Eosinophils (Bld) [#/Vol] 0.19 10*3/uL Normal <0.46 [facility] Comment on above: Order Comment: Speci men Type: BLOOD SPECIMENOrdering Facility: [facility] Address: [address] [place] [address] Performed By: #### 5 7021-8 ####[facility]ORATORYCLIA [id number] [address] Eosinophils/100 WBC (Bld) 2.3 % Normal [facility] Comment on above: Order Comment: Speci men Type: BLOOD SPECIMENOrdering Facility: [facility] Address: [address] [place] [address] Performed By: #### 5 7021-8 ####[facility]ORATORYCLIA [id number] [address] Erythrocyte distribution width (RBC) [Ratio] 17.1 % High 11.5-15.0 [facility] Comment on above: Order Comment: Speci men Type: BLOOD SPECIMENOrdering Facility: [facility] Address: [address] [place] [address] Performed By: #### 5 7021-8 ####[facility]ORATORYCLIA [id number] [address] Hematocrit (Bld) [Volume fraction] 25.3 % Low 39.0-51.0 [facility] Comment on above: Order Comment: Speci men Type: BLOOD SPECIMENOrdering Facility: [facility] Address: [address] [place] [address] Performed By: #### 5 7021-8 ####[facility]ORATORYCLIA [id number] [address] [place] Hemoglobin (Bld) [Mass/Vol] 7.9 g/dL Low 13.0-17.0 [facility] Comment on above: Order Comment: Speci men Type: BLOOD SPECIMENOrdering Facility: [facility] Address: [address] [place] [address] Performed By: #### 5 7021-8 ####[facility]ORATORYCLIA [id number] [address] IMMATURE GRAN % 0.5 % Normal [facility] Comment on above: Order Comment: Speci men Type: BLOOD SPECIMENOrdering Facility: [facility] Address: [address] [place] [address] Performed By: #### 5 7021-8 ####[facility]ATORYCLIA [id number] [address] IMMATURE GRAN ABS 0.04 k/uL Normal <0.10 [facility] Comment on above: Order Comment: Speci men Type: BLOOD SPECIMENOrdering Facility: [facility] Address: [address] [place] [address] Performed By: #### 5 7021-8 ####[facility]ATORYCLIA [id number] [address] Lymphocytes (Bld) [#/Vol] 1.69 10*3/uL Normal 1.00-4.00 [facility] Comment on above: Order Comment: Speci men Type: BLOOD SPECIMENOrdering Facility: [facility] Address: [address] [place] [address] Performed By: #### 5 7021-8 ####[facility]ORATORYCLIA [id number] [address] Lymphocytes/100 WBC (Bld) 20.1 % Normal [facility] Comment on above: Order Comment: Speci men Type: BLOOD SPECIMENOrdering Facility: [facility] Address: [address] [place] [address] Performed By: #### 5 7021-8 ####[facility]ATORYCLIA [id number] [address] MCH (RBC) [Entitic mass] 28.5 pg Normal 26.0-34.0 [facility] Comment on above: Order Comment: Speci men Type: BLOOD SPECIMENOrdering Facility: [facility] Address: [address] [place] [address] Performed By: #### 5 7021-8 ####[facility]ORATORYCLIA [id number] [address] [place] MCHC (RBC) [Mass/Vol] 31.2 g/dL Normal 30.5-36.0 [facility] Comment on above: Order Comment: Speci men Type: BLOOD SPECIMENOrdering Facility: [facility] Address: [address] [place] [address] Performed By: #### 5 7021-8 ####[facility]ORATORYCLIA [id number] [address] STATES [place] [facility] MCV (RBC) [Entitic vol] 91.3 fL Normal 80.0-100.0 [facility] Comment on above: Order Comment: Speci men Type: BLOOD SPECIMENOrdering Facility: [facility] Address: [address] [place] [address] Performed By: #### 5 7021-8 ####[facility]ATORYCLIA [id number] [address] [place] Monocytes (Bld) [#/Vol] 0.53 10*3/uL Normal <0.87 [facility] Comment on above: Order Comment: Speci men Type: BLOOD SPECIMENOrdering Facility: [facility] Address: [address] [place] [address] Performed By: #### 5 7021-8 ####[facility]ORATORYCLIA [id number] [address] Monocytes/100 WBC (Bld) 6.3 % Normal [facility] Comment on above: Order Comment: Speci men Type: BLOOD SPECIMENOrdering Facility: [facility] Address: [address] [place] [address] Performed By: #### 5 7021-8 ####[facility]ORATORYCLIA [id number] [address] [place] Neutrophils (Bld) [#/Vol] 5.90 10*3/uL Normal 1.45-7.50 [facility] Comment on above: Order Comment: Speci men Type: BLOOD SPECIMENOrdering Facility: [facility] Address: [address] [place] [address] Performed By: #### 5 7021-8 ####[facility]ATORYCLIA [id number] [address] Neutrophils/100 WBC (Bld) 70.3 % Normal [facility] Comment on above: Order Comment: Speci men Type: BLOOD SPECIMENOrdering Facility: [facility] Address: [address] [place] [address] Performed By: #### 5 7021-8 ####[facility]ATORYCLIA [id number] [address] [place] Nucleated RBC (Bld) [#/Vol] 10*3/uL Normal <0.01 [facility] Comment on above: Order Comment: Speci men Type: BLOOD SPECIMENOrdering Facility: [facility] Address: [address] [place] [address] Performed By: #### 5 7021-8 ####[facility] LABORATORYCLIA [id number] [address] [place] Nucleated RBC/100 WBC (Bld) [Ratio] 0.0 /100 WBC Normal [facility] Comment on above: Order Comment: Speci men Type: BLOOD SPECIMENOrdering Facility: [facility] Address: [address] [place] [address] Performed By: #### 5 7021-8 ####[facility] LABORATORYCLIA [id number] [address] [place] Platelet mean volume (Bld) [Entitic vol] 9.8 fL Normal 9.0-12.7 [facility] Comment on above: Order Comment: Speci men Type: BLOOD SPECIMENOrdering Facility: [facility] Address: [address] [place] [address] Performed By: #### 5 7021-8 ####[facility] LABORATORYCLIA [id number] [address] STATES OF [facility] Platelets (Bld) [#/Vol] 164 10*3/uL Normal 150-400 [facility] Comment on above: Order Comment: Speci men Type: BLOOD SPECIMENOrdering Facility: [facility] Address: [address] [place] [address] Performed By: #### 5 7021-8 ####[facility] LABORATORYCLIA [id number] [place] [address] [place] RBC (Bld) [#/Vol] 2.77 10*6/uL Low 4.20-6.00 [facility] Comment on above: Order Comment: Speci men Type: BLOOD SPECIMENOrdering Facility: [facility] Address: [address] [place] [address] Performed By: #### 5 7021-8 ####[facility] LABORATORYCLIA [id number] [address] WBC (Bld) [#/Vol] 8.39 10*3/uL Normal 3.70-11.00 [facility] Comment on above: Order Comment: Speci men Type: BLOOD SPECIMENOrdering Facility: [facility] Address: [address] [place] [address] Performed By: #### 5 7021-8 ####[facility] LABORATORYCLIA [id number] [address] OF [facility] CT BRAIN WO IVCONon 08-13-19 CT BRAIN WO IVCON Normal [facility] CT BRAIN WO IVCON Normal [facility] Magnesium SerPl-mCncon 08-12 Magnesium [Mass/Vol] 2.0 mg/dL Normal 1.7-2.3 [facility] Comment on above: Order Comment: Speci men Type: BLOOD SPECIMENOrdering Facility: [facility] Address: [address] [place] [address] Performed By: #### 2 4321-2, 55765-1, 2777-1 ####[facility] LABORATORYCLIA [id number] [address] Phosphate SerPl-mCncon 08-12 Phosphate [Mass/Vol] 2.9 mg/dL Normal 2.7-4.8 [facility] Comment on above: Order Comment: Speci men Type: BLOOD SPECIMENOrdering Facility: [facility] Address: [address] [place] [address] Performed By: #### 2 4321-2, 02568-8, 2777-1 ####[facility] LABORATORYCLIA [id number] [address] THERAPY NTon 08-12-2021 THERAPY NT Normal [facility] THERAPY NT Normal [facility] aPTT PPPon 08-12-2021 aPTT Coag (PPP) [Time] 94.2 s High 23.0-32.4 [facility] Comment on above: Order Comment: Speci men Type: BLOOD SPECIMENOrdering Facility: [facility] Address: [address] [place] [address] Performed By: #### 1 4979-9 ####[facility] LABORATORYCLIA [id number] [address] aPTT Coag (PPP) [Time] 84.4 s High 23.0-32.4 [facility] Comment on above: Order Comment: Speci men Type: BLOOD SPECIMENOrdering Facility: [facility] Address: [address] [place] [address] Performed By: #### 1 4979-9 ####[facility] LABORATORYCLIA [id number] [address] aPTT Coag (PPP) [Time] 71.3 s High 23.0-32.4 [facility] Comment on above: Order Comment: Speci men Type: BLOOD SPECIMENOrdering Facility: [facility] Address: [address] [place] [address] Performed By: #### 1 4979-9 ####[facility] LABORATORYCLIA [id number] [place] [address] [place] ALLIED HEALTHon 08-11-2021 ALLIED HEALTH Normal [facility] CBC W Auto Differential pane l (Bld)on 08-11-2021 Basophils (Bld) [#/Vol] 10*3/uL Normal <0.11 [facility] Comment on above: Order Comment: Speci men Type: BLOOD SPECIMENOrdering Facility: [facility] Address: [address] [place] [address] Performed By: #### 5 7021-8 ####[facility] LABORATORYCLIA [id number] [address] Basophils/100 WBC (Bld) 0.2 % Normal [facility] Comment on above: Order Comment: Speci men Type: BLOOD SPECIMENOrdering Facility: [facility] Address: [address] [place] [address] Performed By: #### 5 7021-8 ####[facility] LABORATORYCLIA [id number] [address] Differential cell count method Nom (Bld) Auto Normal [facility] Comment on above: Order Comment: Speci men Type: BLOOD SPECIMENOrdering Facility: [facility] Address: [address] [place] [address] Performed By: #### 5 7021-8 ####[facility]ORATORYCLIA [id number] [place] [address] [place] Eosinophils (Bld) [#/Vol] 0.16 10*3/uL Normal <0.46 [facility] Comment on above: Order Comment: Speci men Type: BLOOD SPECIMENOrdering Facility: [facility] Address: [address] [place] [address] Performed By: #### 5 7021-8 ####[facility] LABORATORYCLIA [id number] [address] [place] Eosinophils/100 WBC (Bld) 1.8 % Normal [facility] Comment on above: Order Comment: Speci men Type: BLOOD SPECIMENOrdering Facility: [facility] Address: [facility] [place] [address] Performed By: #### 5 7021-8 ####[facility] LABORATORYCLIA [id number] [address] Erythrocyte distribution width (RBC) [Ratio] 17.3 % High 11.5-15.0 [facility] Comment on above: Order Comment: Speci men Type: BLOOD SPECIMENOrdering Facility: [facility] Address: [address] [place] [address] Performed By: #### 5 7021-8 ####[facility] LABORATORYCLIA [id number] [address] Hematocrit (Bld) [Volume fraction] 26.6 % Low 39.0-51.0 [facility] Comment on above: Order Comment: Speci men Type: BLOOD SPECIMENOrdering Facility: [facility] Address: [address] [place] [address] Performed By: #### 5 7021-8 ####[facility] LABORATORYCLIA [id number] [address] [place] Hemoglobin (Bld) [Mass/Vol] 8.2 g/dL Low 13.0-17.0 [facility] Comment on above: Order Comment: Speci men Type: BLOOD SPECIMENOrdering Facility: [facility] Address: [address] [place] [address] Performed By: #### 5 7021-8 ####[facility]ORATORYCLIA [id number] [address] IMMATURE GRAN % 0.6 % Normal [facility] Comment on above: Order Comment: Speci men Type: BLOOD SPECIMENOrdering Facility: [facility] Address: [address] [place] [address] Performed By: #### 5 7021-8 ####[facility]ORATORYCLIA [id number] [address] IMMATURE GRAN ABS 0.05 k/uL Normal <0.10 [facility] Comment on above: Order Comment: Speci men Type: BLOOD SPECIMENOrdering Facility: [facility] Address: [address] [place] [address] Performed By: #### 5 7021-8 ####[facility] LABORATORYCLIA [id number] [address] [place] Lymphocytes (Bld) [#/Vol] 1.40 10*3/uL Normal 1.00-4.00 [facility] Comment on above: Order Comment: Speci men Type: BLOOD SPECIMENOrdering Facility: [facility] Address: [address] [place] [address] Performed By: #### 5 7021-8 ####[facility]ORATORYCLIA [id number] [address] Lymphocytes/100 WBC (Bld) 15.8 % Normal [facility] Comment on above: Order Comment: Speci men Type: BLOOD SPECIMENOrdering Facility: [facility] Address: [address] [place] [address] Performed By: #### 5 7021-8 ####[facility] LABORATORYCLIA [id number] [address] [place] MCH (RBC) [Entitic mass] 28.4 pg Normal 26.0-34.0 [facility] Comment on above: Order Comment: Speci men Type: BLOOD SPECIMENOrdering Facility: [facility] Address: [address] [place] [address] Performed By: #### 5 7021-8 ####[facility] LABORATORYCLIA [id number] [address] [place] MCHC (RBC) [Mass/Vol] 30.8 g/dL Normal 30.5-36.0 [facility] Comment on above: Order Comment: Speci men Type: BLOOD SPECIMENOrdering Facility: [facility] Address: [address] [place] [address] Performed By: #### 5 7021-8 ####[facility] LABORATORYCLIA [id number] [place] [address] [place] MCV (RBC) [Entitic vol] 92.0 fL Normal 80.0-100.0 [facility] Comment on above: Order Comment: Speci men Type: BLOOD SPECIMENOrdering Facility: [facility] Address: [address] [place] [address] Performed By: #### 5 7021-8 ####[facility] LABORATORYCLIA [id number] [place] [address] [place] Monocytes (Bld) [#/Vol] 0.61 10*3/uL Normal <0.87 [facility] Comment on above: Order Comment: Speci men Type: BLOOD SPECIMENOrdering Facility: [facility] Address: [address] [place] [address] Performed By: #### 5 7021-8 ####[facility] LABORATORYCLIA [id number] [address] [place] Monocytes/100 WBC (Bld) 6.9 % Normal [facility] Comment on above: Order Comment: Speci men Type: BLOOD SPECIMENOrdering Facility: [facility] Address: [address] [place] [address] Performed By: #### 5 7021-8 ####[facility] LABORATORYCLIA [id number] [place] [address] [place] Neutrophils (Bld) [#/Vol] 6.62 10*3/uL Normal 1.45-7.50 [facility] Comment on above: Order Comment: Speci men Type: BLOOD SPECIMENOrdering Facility: [facility] Address: [address] [place] [address] Performed By: #### 5 7021-8 ####[facility] LABORATORYCLIA [id number] [address] [place] Neutrophils/100 WBC (Bld) 74.7 % Normal [facility] Comment on above: Order Comment: Speci men Type: BLOOD SPECIMENOrdering Facility: [facility] Address: [address] [place] [address] Performed By: #### 5 7021-8 ####[facility]ORATORYCLIA [id number] [address] Nucleated RBC (Bld) [#/Vol] 10*3/uL Normal <0.01 [facility] Comment on above: Order Comment: Speci men Type: BLOOD SPECIMENOrdering Facility: [facility] Address: [address] [place] [address] Performed By: #### 5 7021-8 ####[facility] LABORATORYCLIA [id number] [address] OF [facility] Nucleated RBC/100 WBC (Bld) [Ratio] 0.0 /100 WBC Normal [facility] Comment on above: Order Comment: Speci men Type: BLOOD SPECIMENOrdering Facility: [facility] Address: [address] [place] [address] Performed By: #### 5 7021-8 ####[facility]ORATORYCLIA [id number] [address] OF [facility] Platelet mean volume (Bld) [Entitic vol] 9.8 fL Normal 9.0-12.7 [facility] Comment on above: Order Comment: Speci men Type: BLOOD SPECIMENOrdering Facility: [facility] Address: [address] [place] [address] Performed By: #### 5 7021-8 ####[facility]ORATORYCLIA [id number] [address] [place] Platelets (Bld) [#/Vol] 157 10*3/uL Normal 150-400 [facility] Comment on above: Order Comment: Speci men Type: BLOOD SPECIMENOrdering Facility: [facility] Address: [address] [place] [address] Performed By: #### 5 7021-8 ####[facility]ORATORYCLIA [id number] [address] [place] RBC (Bld) [#/Vol] 2.89 10*6/uL Low 4.20-6.00 [facility] Comment on above: Order Comment: Speci men Type: BLOOD SPECIMENOrdering Facility: [facility] Address: [address] [place] [address] Performed By: #### 5 7021-8 ####[facility]ORATORYCLIA [id number] [address] [place] WBC (Bld) [#/Vol] 8.86 10*3/uL Normal 3.70-11.00 [facility] Comment on above: Order Comment: Speci men Type: BLOOD SPECIMENOrdering Facility: [facility] Address: [address] [place] [address] Performed By: #### 5 7021-8 ####[facility]ORATORYCLIA [id number] [address] OF [facility] CBC panel Auto (Bld)on 08-11 Erythrocyte distribution width (RBC) [Ratio] 17.2 % High 11.5-15.0 [facility] Comment on above: Order Comment: Speci men Type: BLOOD SPECIMENOrdering Facility: [facility] Address: [address] [place] [address] Performed By: #### 5 8410-2 ####[facility]ORATORYCLIA [id number] [address] STATES OF [facility] Hematocrit (Bld) [Volume fraction] 27.0 % Low 39.0-51.0 [facility] Comment on above: Order Comment: Speci men Type: BLOOD SPECIMENOrdering Facility: [facility] Address: [address] [place] [address] Performed By: #### 5 8410-2 ####[facility]ORATORYCLIA [id number] [address] Hemoglobin (Bld) [Mass/Vol] 8.3 g/dL Low 13.0-17.0 [facility] Comment on above: Order Comment: Speci men Type: BLOOD SPECIMENOrdering Facility: [facility] Address: [address] [place], [place] [address] Performed By: #### 5 8410-2 ####[facility] LABORATORYCLIA [id number] [address] MCH (RBC) [Entitic mass] 28.7 pg Normal 26.0-34.0 [facility] Comment on above: Order Comment: Speci men Type: BLOOD SPECIMENOrdering Facility: [facility] Address: [address] [place] [address] Performed By: #### 5 8410-2 ####[facility] LABORATORYCLIA [id number] [address] MCHC (RBC) [Mass/Vol] 30.7 g/dL Normal 30.5-36.0 [facility] Comment on above: Order Comment: Speci men Type: BLOOD SPECIMENOrdering Facility: [facility] Address: [address] [place] [address] Performed By: #### 5 8410-2 ####[facility] LABORATORYCLIA [id number] [address] MCV (RBC) [Entitic vol] 93.4 fL Normal 80.0-100.0 [facility] Comment on above: Order Comment: Speci men Type: BLOOD SPECIMENOrdering Facility: [facility] Address: [address] [place] [address] Performed By: #### 5 8410-2 ####[facility] LABORATORYCLIA [id number] [address] Nucleated RBC (Bld) [#/Vol] 10*3/uL Normal <0.01 [facility] Comment on above: Order Comment: Speci men Type: BLOOD SPECIMENOrdering Facility: [facility] Address: [address] [place] [address] Performed By: #### 5 8410-2 ####[facility]ORATORYCLIA [id number] [address] Platelet mean volume (Bld) [Entitic vol] 9.8 fL Normal 9.0-12.7 [facility] Comment on above: Order Comment: Speci men Type: BLOOD SPECIMENOrdering Facility: [facility] Address: [address] [place] [address] Performed By: #### 5 8410-2 ####[facility]ORATORYCLIA [id number] [address] OF [facility] Platelets (Bld) [#/Vol] 169 10*3/uL Normal 150-400 [facility] Comment on above: Order Comment: Speci men Type: BLOOD SPECIMENOrdering Facility: [facility] Address: [address] [place] [address] Performed By: #### 5 8410-2 ####[facility] LABORATORYCLIA [id number] [address] STATES OF [facility] RBC (Bld) [#/Vol] 2.89 10*6/uL Low 4.20-6.00 [facility] Comment on above: Order Comment: Speci men Type: BLOOD SPECIMENOrdering Facility: [facility] Address: [address] [place] [address] Performed By: #### 5 8410-2 ####[facility]ORATORYCLIA [id number] [address] WBC (Bld) [#/Vol] 9.03 10*3/uL Normal 3.70-11.00 [facility] Comment on above: Order Comment: Speci men Type: BLOOD SPECIMENOrdering Facility: [facility] Address: [address] [place] [address] Performed By: #### 5 8410-2 ####[facility]ORATORYCLIA [id number] [address] BRAIN WO IVCONon 08-12-19 CT BRAIN WO IVCON Normal [facility] PT panel Coag (PPP)on 2021 INR Coag (PPP) [Relative time] 1.0 {INR} Normal 0.9-1.3 [facility] Comment on above: Order Comment: Speci men Type: BLOOD SPECIMENOrdering Facility: [facility] Address: [address] [place] [address] Result Comment: Yris min K Antagonist (VKA) Therapeutic Range: INR 2 to 3 (Target INR of 2.5)Note: For patients treated with VKA drugs, such as warfarin, the [place] [employer] 2012 Guideline recommends [...] al. Chest 2012, 141:7S-47SNishmariangel RA, et al. [facility] 2017, 70: 252-289 Performed By: #### 1 4979-9, 79625-7 ####[facility]ITALCL[facility] [id number] [address] [place] PT Coag (PPP) [Time] 11.4 s Normal 9.7-13.0 [facility] Comment on above: Order Comment: Shira feldman Type: BLOOD SPECIMENOrdering Facility: [facility] Address: [address] [place] [address] Performed By: #### 1 4979-9, 29817-1 ####[facility] LABORATORYCLIA [id number] [address] [place] THERAPY NTon 08-11-2021 THERAPY NT Normal [facility] US DVT LOWER BILon 2 US DVT LOWER RAINER Normal [facility] US DVT UPPER BILon 2 US DVT UPPER RAINER Normal [facility] aPTT PPPon 08-11-2021 aPTT Coag (PPP) [Time] 26.9 s Normal 23.0-32.4 [facility] Comment on above: Order Comment: Speci men Type: BLOOD SPECIMENOrdering Facility: [facility] Address: [address] [place] [address] Performed By: #### 1 4979-9, 77679-1 ####[facility]ORATORYCLIA [id number] [place] [address] [place] Basic metabolic 2000 panelon 08-10-2021 Anion gap [Moles/Vol] 11 mmol/L Normal 9-18 [facility] Comment on above: Order Comment: Speci men Type: BLOOD SPECIMENOrdering Facility: [facility] Address: [address] [place] [address] Performed By: #### 2 4321-2 ####[facility]ORATORYCLIA [id number] [place] [address] [place] Calcium [Mass/Vol] 8.7 mg/dL Normal 8.5-10.2 [facility] Comment on above: Order Comment: Speci men Type: BLOOD SPECIMENOrdering Facility: [facility] Address: [address] [place] [address] Performed By: #### 2 4321-2 ####[facility] LABORATORYCLIA [id number] [place] [address] [place] Chloride [Moles/Vol] 98 mmol/L Normal 97-105 [facility] Comment on above: Order Comment: Speci men Type: BLOOD SPECIMENOrdering Facility: [facility] Address: [address] [place] [address] Performed By: #### 2 4321-2 ####[facility]ORATORYCLIA [id number] [place] [address] [place] CO2 [Moles/Vol] 28 mmol/L Normal 22-30 [facility] Comment on above: Order Comment: Speci men Type: BLOOD SPECIMENOrdering Facility: [facility] Address: [address] [place] [address] Performed By: #### 2 4321-2 ####[facility]ORATORYCLIA [id number] [address] [place] Creatinine [Mass/Vol] 0.59 mg/dL Low 0.73-1.22 [facility] Comment on above: Order Comment: Shira feldman Type: BLOOD SPECIMENOrdering Facility: [facility] Address: [address] [address] Performed By: #### 2 4321-2 ####[facility] LABORATORYCLIA [id number] [address] ESTIMATED GLOMERULAR FILTRATION RATE 105 mL/min/1.73m??? Normal >=60 [facility] Comment on above: Order Comment: Shira feldman Type: BLOOD SPECIMENOrdering Facility: [facility] Address: [address] [place] [address] Result Comment: Luzmaria mated Glomerular Filtration Rate [...] #### 2 4321-2 ####[facility]ORATORYCLIA [id number] [address] [place] Glucose [Mass/Vol] 118 mg/dL High 74-99 [facility] Comment on above: Order Comment: Shira feldman Type: BLOOD SPECIMENOrdering Facility: [facility] Address: [address] [place] [address] Result Comment: The [place] [employer] (ADA) provides guidance for cutoff [...] Standards of Medical Care in Diabetes 2016, [place] [employer]. Diabetes Care. 2016.39(Suppl 1). Performed By: #### 2 4321-2 ####[facility] LABORATORYCLIA [id number] [place] [address] [place] Potassium [Moles/Vol] 3.7 mmol/L Normal 3.7-5.1 [facility] Comment on above: Order Comment: Speci men Type: BLOOD SPECIMENOrdering Facility: [facility] Address: [address] [place] [address] Performed By: #### 2 4321-2 ####[facility]ORATORYCLIA [id number] [address] [place] Sodium [Moles/Vol] 137 mmol/L Normal 136-144 [facility] Comment on above: Order Comment: Speci men Type: BLOOD SPECIMENOrdering Facility: [facility] Address: [address] [place] [address] Performed By: #### 2 4321-2 ####[facility]ORATORYCLIA [id number] [address] [place] Urea nitrogen [Mass/Vol] 23 mg/dL Normal 9-24 [facility] Comment on above: Order Comment: Speci men Type: BLOOD SPECIMENOrdering Facility: [facility] Address: [address] [place] [address] Performed By: #### 2 4321-2 ####[facility]ORATORYCLIA [id number] [address] [place] Anion gap [Moles/Vol] 17 mmol/L Normal 9-18 [facility] Comment on above: Order Comment: Speci men Type: BLOOD SPECIMENOrdering Facility: [facility] Address: [address] [place] [address] Performed By: #### 1 9123-9, 2777-1, 98751-9 ####[facility]ORATORYCLIA [id number] [place] [address] [place] Calcium [Mass/Vol] 7.7 mg/dL Low 8.5-10.2 [facility] Comment on above: Order Comment: Speci men Type: BLOOD SPECIMENOrdering Facility: [facility] Address: [address] [place] [address] Performed By: #### 1 9123-9, 27711-04, 29619-8 ####[facility]ORATORYCLIA [id number] [place] [address] [place] Chloride [Moles/Vol] 86 mmol/L Low 97-105 [facility] Comment on above: Order Comment: Speci men Type: BLOOD SPECIMENOrdering Facility: [facility] Address: [address] [place] [address] Performed By: #### 1 9123-9, 2776-05, ####[facility]ORATORYCLIA [id number] [place] [address] [place] CO2 [Moles/Vol] 24 mmol/L Normal 22-30 [facility] Comment on above: Order Comment: Speci men Type: BLOOD SPECIMENOrdering Facility: [facility] Address: [address] [place] [address] Performed By: #### 1 9123-9, 2776-05, ####[facility]ATORYCLIA [id number] [place] [address] [place] Creatinine [Mass/Vol] 0.53 mg/dL Low 0.73-1.22 [facility] Comment on above: Order Comment: Speci men Type: BLOOD SPECIMENOrdering Facility: [facility] Address: [address] [place] [address] Performed By: #### 1 9123-9, 2776-05, 00039-2 ####[facility] LABORATORYCLIA [id number] [address] ESTIMATED GLOMERULAR FILTRATION RATE 108 mL/min/1.73m??? Normal >=60 [facility] Comment on above: Order Comment: Speci men Type: BLOOD SPECIMENOrdering Facility: [facility] Address: [address] [id number] Result Comment: Luzmaria mated Glomerular Filtration Rate [...] GFR. Performed By: #### 1 9123-9, 2777-, 26659-6 ####[facility]ITALCLIA [id number] [place] [address] [place] Glucose [Mass/Vol] 455 mg/dL High 74-99 [facility] Comment on above: Order Comment: Speci men Type: BLOOD SPECIMENOrdering Facility: [facility] Address: [address] [place] [address] Result Comment: The [place] [employer] (ADA) provides guidance for cutoff [...] Standards of Medical Care in Diabetes 2016, [place] [employer]. Diabetes Care. 2016.39(Suppl 1). Performed By: #### 1 9123-9, 2777-, 79615-5 ####[facility]ORATORYCLIA [id number] [place] [id number] [place] Potassium [Moles/Vol] 3.4 mmol/L Low 3.7-5.1 [facility] Comment on above: Order Comment: Speccara men Type: BLOOD SPECIMENOrdering Facility: [facility] Address: [address] [id number] Performed By: #### 1 9123-9, 2777-, 84755-9 ####[facility]ORATORYCLIA [id number] [place] [address] [place] Sodium [Moles/Vol] 127 mmol/L Low 136-144 [facility] Comment on above: Order Comment: Speci men Type: BLOOD SPECIMENOrdering Facility: [facility] Address: [address] [place] [address] Performed By: #### 1 9123-9, 2777, 86324-4 ####[facility]ORATORYCLIA [id number] [place] [address] [place] Urea nitrogen [Mass/Vol] 21 mg/dL Normal 9-24 [facility] Comment on above: Order Comment: Speci men Type: BLOOD SPECIMENOrdering Facility: [facility] Address: [address] [place] [address] Performed By: #### 1 9123-9, 2777, 15181-5 ####[facility]ORATORYCLIA [id number] [address] [place] CASE MANAGEMon 08-10-2021 CASE MANAGEM Normal [facility] CBC W Auto Differential pane l (Bld)on 08-10-2021 Basophils (Bld) [#/Vol] 0.04 10*3/uL Normal <0.11 [facility] Comment on above: Order Comment: Speci men Type: BLOOD SPECIMENOrdering Facility: [facility] Address: [address] [place] [address] Performed By: #### 5 7021-8 ####[facility]ORATORYCLIA [id number] [address] STATES [facility] Basophils/100 WBC (Bld) 0.4 % Normal [facility] Comment on above: Order Comment: Speci men Type: BLOOD SPECIMENOrdering Facility: [facility] Address: [address] [place] [address] Performed By: #### 5 7021-8 ####[facility]ORATORYCLIA [id number] [address] Differential cell count method Nom (Bld) Auto Normal [facility] Comment on above: Order Comment: Speci men Type: BLOOD SPECIMENOrdering Facility: [facility] Address: [address] [place] [address] Performed By: #### 5 7021-8 ####[facility]ORATORYCLIA [id number] [address] [place] Eosinophils (Bld) [#/Vol] 0.11 10*3/uL Normal <0.46 [facility] Comment on above: Order Comment: Speci men Type: BLOOD SPECIMENOrdering Facility: [facility] Address: [address] [place] [address] Performed By: #### 5 7021-8 ####[facility]ATORYCLIA [id number] [address] Eosinophils/100 WBC (Bld) 1.1 % Normal [facility] Comment on above: Order Comment: Speci men Type: BLOOD SPECIMENOrdering Facility: [facility] Address: [address] [place] [address] Performed By: #### 5 7021-8 ####[facility]ORATORYCLIA [id number] [address] [place] Erythrocyte distribution width (RBC) [Ratio] 17.2 % High 11.5-15.0 [facility] Comment on above: Order Comment: Speci men Type: BLOOD SPECIMENOrdering Facility: [facility] Address: [address] [place] [address] Performed By: #### 5 7021-8 ####[facility]ORATORYCLIA [id number] [address] Hematocrit (Bld) [Volume fraction] 25.5 % Low 39.0-51.0 [facility] Comment on above: Order Comment: Speci men Type: BLOOD SPECIMENOrdering Facility: [facility] Address: [address] [place] [address] Performed By: #### 5 7021-8 ####[facility]ORATORYCLIA [id number] [address] STATES OF [facility] Hemoglobin (Bld) [Mass/Vol] 7.9 g/dL Low 13.0-17.0 [facility] Comment on above: Order Comment: Speci men Type: BLOOD SPECIMENOrdering Facility: [facility] Address: [address] [place] [address] Performed By: #### 5 7021-8 ####[facility]ORATORYCLIA [id number] [address] IMMATURE GRAN % 0.4 % Normal [facility] Comment on above: Order Comment: Speci men Type: BLOOD SPECIMENOrdering Facility: [facility] Address: [address] [place] [address] Performed By: #### 5 7021-8 ####[facility]ORATORYCLIA [id number] [address] IMMATURE GRAN ABS 0.04 k/uL Normal <0.10 [facility] Comment on above: Order Comment: Speci men Type: BLOOD SPECIMENOrdering Facility: [facility] Address: [address] [place] [address] Performed By: #### 5 7021-8 ####[facility]ATORYCLIA [id number] [address] [place] Lymphocytes (Bld) [#/Vol] 1.66 10*3/uL Normal 1.00-4.00 [facility] Comment on above: Order Comment: Speci men Type: BLOOD SPECIMENOrdering Facility: [facility] Address: [address] [place] [address] Performed By: #### 5 7021-8 ####[facility]ORATORYCLIA [id number] [address] Lymphocytes/100 WBC (Bld) 16.2 % Normal [facility] Comment on above: Order Comment: Speci men Type: BLOOD SPECIMENOrdering Facility: [facility] Address: [address] [place] [address] Performed By: #### 5 7021-8 ####[facility]ORATORYCLIA [id number] [address] MCH (RBC) [Entitic mass] 28.5 pg Normal 26.0-34.0 [facility] Comment on above: Order Comment: Speci men Type: BLOOD SPECIMENOrdering Facility: [facility] Address: [address] [place] [address] Performed By: #### 5 7021-8 ####[facility]ORATORYCLIA [id number] [address] STATES OF [facility] MCHC (RBC) [Mass/Vol] 31.0 g/dL Normal 30.5-36.0 [facility] Comment on above: Order Comment: Speci men Type: BLOOD SPECIMENOrdering Facility: [facility] Address: [address] [place] [address] Performed By: #### 5 7021-8 ####[facility]ORATORYCLIA [id number] [address] STATES OF [facility] MCV (RBC) [Entitic vol] 92.1 fL Normal 80.0-100.0 [facility] Comment on above: Order Comment: Speci men Type: BLOOD SPECIMENOrdering Facility: [facility] Address: [address] [place] [address] Performed By: #### 5 7021-8 ####[facility]ORATORYCLIA [id number] [address] Monocytes (Bld) [#/Vol] 0.51 10*3/uL Normal <0.87 [facility] Comment on above: Order Comment: Speci men Type: BLOOD SPECIMENOrdering Facility: [facility] Address: [address] [place] [address] Performed By: #### 5 7021-8 ####[facility]ATORYCLIA [id number] [address] Monocytes/100 WBC (Bld) 5.0 % Normal [facility] Comment on above: Order Comment: Speci men Type: BLOOD SPECIMENOrdering Facility: [facility] Address: [facility] [place] [address] Performed By: #### 5 7021-8 ####[facility]ATORYCLIA [id number] [address] [place] Neutrophils (Bld) [#/Vol] 7.91 10*3/uL High 1.45-7.50 [facility] Comment on above: Order Comment: Speci men Type: BLOOD SPECIMENOrdering Facility: [facility] Address: [address] [place] [address] Performed By: #### 5 7021-8 ####[facility]ORYCLIA [id number] [address] [place] Neutrophils/100 WBC (Bld) 76.9 % Normal [facility] Comment on above: Order Comment: Speci men Type: BLOOD SPECIMENOrdering Facility: [facility] Address: [address] [place] [address] Performed By: #### 5 7021-8 ####[facility]ATORYCLIA [id number] [place] [address] [place] Nucleated RBC (Bld) [#/Vol] 10*3/uL Normal <0.01 [facility] Comment on above: Order Comment: Speci men Type: BLOOD SPECIMENOrdering Facility: [facility] Address: [address] [place] [address] Performed By: #### 5 7021-8 ####[facility]ATORYCLIA [id number] [address] [place] Nucleated RBC/100 WBC (Bld) [Ratio] 0.0 /100 WBC Normal [facility] Comment on above: Order Comment: Speci men Type: BLOOD SPECIMENOrdering Facility: [facility] Address: [address] [place] [address] Performed By: #### 5 7021-8 ####[facility]ATORYCLIA [id number] [address] [place] Platelet mean volume (Bld) [Entitic vol] 10.3 fL Normal 9.0-12.7 [facility] Comment on above: Order Comment: Speci men Type: BLOOD SPECIMENOrdering Facility: [facility] Address: [address] [place] [address] Performed By: #### 5 7021-8 ####[facility]ATORYCLIA [id number] [address] [place] Platelets (Bld) [#/Vol] 152 10*3/uL Normal 150-400 [facility] Comment on above: Order Comment: Speci men Type: BLOOD SPECIMENOrdering Facility: [facility] Address: [address] [place] [address] Performed By: #### 5 7021-8 ####[facility]ATORYCLIA [id number] [place] [address] [place] RBC (Bld) [#/Vol] 2.77 10*6/uL Low 4.20-6.00 [facility] Comment on above: Order Comment: Speci men Type: BLOOD SPECIMENOrdering Facility: [facility] Address: [address] [place] [address] Performed By: #### 5 7021-8 ####[facility]ORATORYCLIA [id number] [place] [address] [place] WBC (Bld) [#/Vol] 10.27 10*3/uL Normal 3.70-11.00 [facility] Comment on above: Order Comment: Speci men Type: BLOOD SPECIMENOrdering Facility: [facility] Address: [address] [place] [address] Performed By: #### 5 7021-8 ####[facility]ATORYCLIA [id number] [address] [place] Magnesium SerPl-mCncon 08-10 Magnesium [Mass/Vol] 1.8 mg/dL Normal 1.7-2.3 [facility] Comment on above: Order Comment: Speci men Type: BLOOD SPECIMENOrdering Facility: [facility] Address: [address] [place] [address] Performed By: #### 1 9123-9, 2777-1, 43525-2 ####[facility]ORATORYCLIA [id number] [address] OF [facility] NURSING PROGon 08-10-2021 NURSING PROG Normal [facility] NURSING PROG Normal [facility] NUTRITIONon 08-10-2021 NUTRITION Normal [facility] Phosphate SerPl-mCncon 08-10 Phosphate [Mass/Vol] 3.7 mg/dL Normal 2.7-4.8 [facility] Comment on above: Order Comment: Speci men Type: BLOOD SPECIMENOrdering Facility: [facility] Address: [address] [place] [address] Performed By: #### 1 9123-9, 27711-04, ####[facility]ORATORYCLIA [id number] [address] [place] ALLIED HEALTHon 08-09-2021 ALLIED HEALTH Normal [facility] ANES POSTPROC EVALon 022 ANES POSTPROC EVAL Normal [facility] ANES PRE-OPon 08-09-2021 ANES PRE-OP Normal [facility] BRIEF OP NOTon 08-09-2021 BRIEF OP NOT Normal [facility] Basic metabolic 2000 panelon 08-09-2021 Anion gap [Moles/Vol] 8 mmol/L Low 9-18 [facility] Comment on above: Order Comment: Speci men Type: BLOOD SPECIMENOrdering Facility: [facility] Address: [address] [place] [address] Performed By: #### 2 4321-2, 86575-3, 27711-04 ####[facility]ATORYCLIA [id number] [place] [address] [place] Calcium [Mass/Vol] 9.2 mg/dL Normal 8.5-10.2 [facility] Comment on above: Order Comment: Speci men Type: BLOOD SPECIMENOrdering Facility: [facility] Address: [address] [place] [address] Performed By: #### 2 4321-2, , 2776-05 ####[facility]ORATORYCLIA [id number] [place] [address] [place] Chloride [Moles/Vol] 97 mmol/L Normal 97-105 [facility] Comment on above: Order Comment: Speci men Type: BLOOD SPECIMENOrdering Facility: [facility] Address: [address] [place] [address] Performed By: #### 2 4321-2, , 2776-05 ####[facility]ATORYCLIA [id number] [address] [place] CO2 [Moles/Vol] 30 mmol/L Normal 22-30 [facility] Comment on above: Order Comment: Speci men Type: BLOOD SPECIMENOrdering Facility: [facility] Address: [address] [place] [address] Performed By: #### 2 4321-2, , 2776-05 ####[facility]ATORYCLIA [id number] [address] STATES OF [facility] Creatinine [Mass/Vol] 0.51 mg/dL Low 0.73-1.22 [facility] Comment on above: Order Comment: Speci men Type: BLOOD SPECIMENOrdering Facility: [facility] Address: [address] [place] [address] Performed By: #### 2 4321-2, , 2776-05 ####[facility]ATORYCLIA [id number] [address] ESTIMATED GLOMERULAR FILTRATION RATE 110 mL/min/1.73m??? Normal >=60 [facility] Comment on above: Order Comment: Speci men Type: BLOOD SPECIMENOrdering Facility: [facility] Address: [address] [place] [address] Result Comment: Luzmaria mated Glomerular Filtration Rate [...] 4321-2, , 2776-05 ####[facility]ORATORYCLIA [id number] [place] [address] [place] Glucose [Mass/Vol] 106 mg/dL High 74-99 [facility] Comment on above: Order Comment: Shira feldman Type: BLOOD SPECIMENOrdering Facility: [facility] Address: [address] [place] [address] Result Comment: The [place] [employer] (ADA) provides guidance for cutoff [...] Standards of Medical Care in Diabetes 2016, [place] [employer]. Diabetes Care. 2016.39(Suppl 1). Performed By: #### 2 4321-2, , 2776-05 ####[facility] LABORATORYIA [id number] [place] [address] [place] Potassium [Moles/Vol] 4.1 mmol/L Normal 3.7-5.1 [facility] Comment on above: Order Comment: Shira feldman Type: BLOOD SPECIMENOrdering Facility: [facility] Address: [address] [id number] Performed By: #### 2 4321-2, , 2776-05 ####[facility]ATORYCLIA [id number] [address] [place] Sodium [Moles/Vol] 135 mmol/L Low 136-144 [facility] Comment on above: Order Comment: Speci men Type: BLOOD SPECIMENOrdering Facility: [facility] Address: [address] [place] [address] Performed By: #### 2 4321-2, 10309-6, 2777-1 ####[facility]ATORYCLIA [id number] [address] [place] Urea nitrogen [Mass/Vol] 26 mg/dL High 9-24 [facility] Comment on above: Order Comment: Speci men Type: BLOOD SPECIMENOrdering Facility: [facility] Address: [address] [place] [address] Performed By: #### 2 4321-2, , 2777-1 ####[facility]ATORYCLIA [id number] [address] STATES [facility] CBC W Auto Differential pane l (Bld)on 08-09-2021 Basophils (Bld) [#/Vol] 0.06 10*3/uL Normal <0.11 [facility] Comment on above: Order Comment: Speci men Type: BLOOD SPECIMENOrdering Facility: [facility] Address: [address] [place] [address] Performed By: #### 5 7021-8 ####[facility]ATORYCLIA [id number] [address] [place] Basophils/100 WBC (Bld) 0.5 % Normal [facility] Comment on above: Order Comment: Speci men Type: BLOOD SPECIMENOrdering Facility: [facility] Address: [address] [place] [address] Performed By: #### 5 7021-8 ####[facility]ATORYCLIA [id number] [address] STATES [facility] Differential cell count method Nom (Bld) Auto Normal [facility] Comment on above: Order Comment: Speci men Type: BLOOD SPECIMENOrdering Facility: [facility] Address: [address] [address] Performed By: #### 5 7021-8 ####[facility]ORATORYCLIA [id number] [address] OF [facility] Eosinophils (Bld) [#/Vol] 0.42 10*3/uL Normal <0.46 [facility] Comment on above: Order Comment: Speci men Type: BLOOD SPECIMENOrdering Facility: [facility] Address: [address] [place] [place] [address] Performed By: #### 5 7021-8 ####[facility]ATORYCLIA [id number] [address] Eosinophils/100 WBC (Bld) 3.8 % Normal [facility] Comment on above: Order Comment: Speci men Type: BLOOD SPECIMENOrdering Facility: [facility] Address: [address] [place] [address] Performed By: #### 5 7021-8 ####[facility]ATORYCLIA [id number] [address] Erythrocyte distribution width (RBC) [Ratio] 17.6 % High 11.5-15.0 [facility] Comment on above: Order Comment: Speci men Type: BLOOD SPECIMENOrdering Facility: [facility] Address: [address] [place] [address] Performed By: #### 5 7021-8 ####[facility]ORATORYCLIA [id number] [address] Hematocrit (Bld) [Volume fraction] 29.3 % Low 39.0-51.0 [facility] Comment on above: Order Comment: Speci men Type: BLOOD SPECIMENOrdering Facility: [facility] Address: [address] [place] [place] [address] Performed By: #### 5 7021-8 ####[facility]ATORYCLIA [id number] [address] Hemoglobin (Bld) [Mass/Vol] 9.0 g/dL Low 13.0-17.0 [facility] Comment on above: Order Comment: Speci men Type: BLOOD SPECIMENOrdering Facility: [facility] Address: [address] [place] [address] Performed By: #### 5 7021-8 ####[facility]ATORYCLIA [id number] [address] IMMATURE GRAN % 0.5 % Normal [facility] Comment on above: Order Comment: Speci men Type: BLOOD SPECIMENOrdering Facility: [facility] Address: [address] [place] [address] Performed By: #### 5 7021-8 ####[facility]ATORYCLIA [id number] [address] IMMATURE GRAN ABS 0.05 k/uL Normal <0.10 [facility] Comment on above: Order Comment: Speci men Type: BLOOD SPECIMENOrdering Facility: [facility] Address: [address] [place] [address] Performed By: #### 5 7021-8 ####[facility]ORATORYCLIA [id number] [address] Lymphocytes (Bld) [#/Vol] 2.00 10*3/uL Normal 1.00-4.00 [facility] Comment on above: Order Comment: Speci men Type: BLOOD SPECIMENOrdering Facility: [facility] Address: [address] [place] [address] Performed By: #### 5 7021-8 ####[facility]ATORYCLIA [id number] [address] Lymphocytes/100 WBC (Bld) 18.1 % Normal [facility] Comment on above: Order Comment: Speci men Type: BLOOD SPECIMENOrdering Facility: [facility] Address: [address] [place] [address] Performed By: #### 5 7021-8 ####[facility]ATORYCLIA [id number] [address] MCH (RBC) [Entitic mass] 28.1 pg Normal 26.0-34.0 [facility] Comment on above: Order Comment: Speci men Type: BLOOD SPECIMENOrdering Facility: [facility] Address: [address] [place] [address] Performed By: #### 5 7021-8 ####[facility]ORATORYCLIA [id number] [address] MCHC (RBC) [Mass/Vol] 30.7 g/dL Normal 30.5-36.0 [facility] Comment on above: Order Comment: Speci men Type: BLOOD SPECIMENOrdering Facility: [facility] Address: [address] [place] [address] Performed By: #### 5 7021-8 ####[facility]ORATORYCLIA [id number] [address] MCV (RBC) [Entitic vol] 91.6 fL Normal 80.0-100.0 [facility] Comment on above: Order Comment: Speci men Type: BLOOD SPECIMENOrdering Facility: [facility] Address: [address] [place] [address] Performed By: #### 5 7021-8 ####[facility]ORATORYCLIA [id number] [address] STATES [facility] Monocytes (Bld) [#/Vol] 0.68 10*3/uL Normal <0.87 [facility] Comment on above: Order Comment: Speci men Type: BLOOD SPECIMENOrdering Facility: [facility] Address: [address] [place] [address] Performed By: #### 5 7021-8 ####[facility]ATORYCLIA [id number] [address] Monocytes/100 WBC (Bld) 6.2 % Normal [facility] Comment on above: Order Comment: Speci men Type: BLOOD SPECIMENOrdering Facility: [facility] Address: [address] [place] [address] Performed By: #### 5 7021-8 ####[facility]ATORYCLIA [id number] [address] [place] Neutrophils (Bld) [#/Vol] 7.82 10*3/uL High 1.45-7.50 [facility] Comment on above: Order Comment: Speci men Type: BLOOD SPECIMENOrdering Facility: [facility] Address: [address] [place] [address] Performed By: #### 5 7021-8 ####[facility]ATORYCLIA [id number] [address] Neutrophils/100 WBC (Bld) 70.9 % Normal [facility] Comment on above: Order Comment: Speci men Type: BLOOD SPECIMENOrdering Facility: [facility] Address: [address] [place] [address] Performed By: #### 5 7021-8 ####[facility]ATORYCLIA [id number] [address] [place] Nucleated RBC (Bld) [#/Vol] 10*3/uL Normal <0.01 [facility] Comment on above: Order Comment: Speci men Type: BLOOD SPECIMENOrdering Facility: [facility] Address: [address] [place] [address] Performed By: #### 5 7021-8 ####[facility]ATORYCLIA [id number] [address] Nucleated RBC/100 WBC (Bld) [Ratio] 0.0 /100 WBC Normal [facility] Comment on above: Order Comment: Speci men Type: BLOOD SPECIMENOrdering Facility: [facility] Address: [address] [place] [address] Performed By: #### 5 7021-8 ####[facility]ATORYCLIA [id number] [address] [place] Platelet mean volume (Bld) [Entitic vol] 10.1 fL Normal 9.0-12.7 [facility] Comment on above: Order Comment: Speci men Type: BLOOD SPECIMENOrdering Facility: [facility] Address: [address] [place] [address] Performed By: #### 5 7021-8 ####[facility]ATORYCLIA [id number] [address] [place] Platelets (Bld) [#/Vol] 160 10*3/uL Normal 150-400 [facility] Comment on above: Order Comment: Speci men Type: BLOOD SPECIMENOrdering Facility: [facility] Address: [address] [place] [address] Performed By: #### 5 7021-8 ####[facility] LABORATORYCLIA [id number] [place] [address] [place] RBC (Bld) [#/Vol] 3.20 10*6/uL Low 4.20-6.00 [facility] Comment on above: Order Comment: Speci men Type: BLOOD SPECIMENOrdering Facility: [facility] Address: [address] [place] [address] Performed By: #### 5 7021-8 ####[facility] LABORATORYCLIA [id number] [address] [place] WBC (Bld) [#/Vol] 11.03 10*3/uL High 3.70-11.00 [facility] Comment on above: Order Comment: Speci men Type: BLOOD SPECIMENOrdering Facility: [facility] Address: [address] [place] [address] Performed By: #### 5 7021-8 ####[facility] LABORATORYCLIA [id number] [address] [place] CONSULT PROGon 08-09-2021 CONSULT PROG Normal [facility] CT BRAIN WO IVCONon 08-10-19 CT BRAIN WO IVCON Normal [facility] CT BRAIN WO IVCON Normal [facility] Magnesium SerPl-mCncon 08-09 Magnesium [Mass/Vol] 2.0 mg/dL Normal 1.7-2.3 [facility] Comment on above: Order Comment: Shira feldman Type: BLOOD SPECIMENOrdering Facility: [facility] Address: [address] [place] [address] Performed By: #### 2 4321-2, 83396-9, 2777-1 ####[facility] LABORATORYCLIA [id number] [address] STATES OF [facility] NURSING PROGon 08-09-2021 NURSING PROG Normal [facility] OPERATIVE NOon 08-09-2021 OPERATIVE NO Normal [facility] PT panel Coag (PPP)on 2021 INR Coag (PPP) [Relative time] 1.1 {INR} Normal 0.9-1.3 [facility] Comment on above: Order Comment: Shira feldman Type: BLOOD SPECIMENOrdering Facility: [facility] Address: [address] [place] [address] Result Comment: Yris min K Antagonist (VKA) Therapeutic Range: INR 2 to 3 (Target INR of 2.5)Note: For patients treated with VKA drugs, such as warfarin, the [place] [employer] 2012 Guideline recommends [...] al. Chest 2012, 141:7S-47SNishimura RA, et al. [facility] 2017, 70: 252-289 Performed By: #### 3 4528-0, 76761-6 ####[facility] LABORATORYCLIA [id number] [place] [id number] [place] PT Coag (PPP) [Time] 11.7 s Normal 9.7-13.0 [facility] Comment on above: Order Comment: Speci men Type: BLOOD SPECIMENOrdering Facility: [facility] Address: [address] [place] [address] Performed By: #### 3 4528-0, 05483-9 ####[facility] LABORATORYCLIA [id number] [address] Phosphate SerPl-mCncon 08-09 Phosphate [Mass/Vol] 4.0 mg/dL Normal 2.7-4.8 [facility] Comment on above: Order Comment: Speci men Type: BLOOD SPECIMENOrdering Facility: [facility] Address: [address] [place] [address] Performed By: #### 2 4321-2, 53486-3, 2777-1 ####[facility] LABORATORYCLIA [id number] [address] OF [facility] THERAPY NTon 08-09-2021 THERAPY NT Normal [facility] THERAPY NT Normal [facility] TYPE AND SCREENon 08-09-2021 ABO O Normal [facility] Comment on above: Order Comment: Speci men Type: BLOOD SPECIMENOrdering Facility: [facility] Address: [address] [place] [address] Performed By: #### T SCR ####[facility] BLOOD BANKCLIA [id number] [address] OF [facility] HISTORICAL AB SCR STATUS Negative Normal [facility] Comment on above: Order Comment: Speci men Type: BLOOD SPECIMENOrdering Facility: [facility] Address: [address] [place] [address] Performed By: #### T SCR ####[facility] BLOOD BANKCLIA [id number] [address] Rh Nom (Bld) Positive Normal [facility] Comment on above: Order Comment: Speci men Type: BLOOD SPECIMENOrdering Facility: [facility] Address: [address] [place] [address] Performed By: #### T SCR ####[facility] BLOOD BANKCLIA [id number] [address] TYPE AND SCREEN EXPIRATION 08/12/2021 23:59 Normal [facility] Comment on above: Order Comment: Speci men Type: BLOOD SPECIMENOrdering Facility: [facility] Address: [address] [place] [address] Performed By: #### T SCR ####[facility] BLOOD BANKCLIA [id number] [address] XR ABD 2V SUPINE W UPR/DECUB /CTLon 08-09-2021 XR ABD 2V SUPINE W UPR/DECUB/CTL Normal [facility] XR CHEST 1V FRONTALon 2021 XR CHEST 1V FRONTAL Normal [facility] XR NECK SOFT TISSUE 2V AP/LA Ton 08-09-2021 XR NECK SOFT TISSUE 2V AP/LAT Normal [facility] XR SKULL 2V AP/LATon 022 XR SKULL 2V AP/LAT Normal [facility] aPTT PPPon 08-09-2021 aPTT Coag (PPP) [Time] 26.8 s Normal 23.0-32.4 [facility] Comment on above: Order Comment: Speci men Type: BLOOD SPECIMENOrdering Facility: [facility] Address: [address] [place] [address] Performed By: #### 3 4528-0, 58013-8 ####[facility] LABORATORYCLIA [id number] [address] CASE MANAGEMon 08-08-2021 CASE MANAGEM Normal [facility] CBC W Auto Differential pane l (Bld)on 08-08-2021 Basophils (Bld) [#/Vol] 0.05 10*3/uL Normal <0.11 [facility] Comment on above: Order Comment: Speci men Type: BLOOD SPECIMENOrdering Facility: [facility] Address: [address] [place] [address] Performed By: #### 5 7021-8 ####[facility] LABORATORYCLIA [id number] [address] STATES [facility] Basophils/100 WBC (Bld) 0.5 % Normal [facility] Comment on above: Order Comment: Speci men Type: BLOOD SPECIMENOrdering Facility: [facility] Address: [address] [place] [address] Performed By: #### 5 7021-8 ####[facility] LABORATORYCLIA [id number] [address] [place] Differential cell count method Nom (Bld) Auto Normal [facility] Comment on above: Order Comment: Speci men Type: BLOOD SPECIMENOrdering Facility: [facility] Address: [address] [place] [address] Performed By: #### 5 7021-8 ####[facility] LABORATORYCLIA [id number] [address] [place] Eosinophils (Bld) [#/Vol] 0.17 10*3/uL Normal <0.46 [facility] Comment on above: Order Comment: Speci men Type: BLOOD SPECIMENOrdering Facility: [facility] Address: [address] [place] [address] Performed By: #### 5 7021-8 ####[facility] LABORATORYCLIA [id number] [address] Eosinophils/100 WBC (Bld) 1.6 % Normal [facility] Comment on above: Order Comment: Speci men Type: BLOOD SPECIMENOrdering Facility: [facility] Address: [address] [place] [address] Performed By: #### 5 7021-8 ####[facility] LABORATORYCLIA [id number] [address] [place] Erythrocyte distribution width (RBC) [Ratio] 17.8 % High 11.5-15.0 [facility] Comment on above: Order Comment: Speci men Type: BLOOD SPECIMENOrdering Facility: [facility] Address: [address] [place] [address] Performed By: #### 5 7021-8 ####[facility] LABORATORYCLIA [id number] [address] Hematocrit (Bld) [Volume fraction] 29.6 % Low 39.0-51.0 [facility] Comment on above: Order Comment: Speci men Type: BLOOD SPECIMENOrdering Facility: [facility] Address: [address] [place] [address] Performed By: #### 5 7021-8 ####[facility] LABORATORYCLIA [id number] [address] Hemoglobin (Bld) [Mass/Vol] 9.0 g/dL Low 13.0-17.0 [facility] Comment on above: Order Comment: Speci men Type: BLOOD SPECIMENOrdering Facility: [facility] Address: [address] [place] [address] Performed By: #### 5 7021-8 ####[facility] LABORATORYCLIA [id number] [address] IMMATURE GRAN % 0.5 % Normal [facility] Comment on above: Order Comment: Speci men Type: BLOOD SPECIMENOrdering Facility: [facility] Address: [address] [place] [address] Performed By: #### 5 7021-8 ####[facility] LABORATORYCLIA [id number] [address] IMMATURE GRAN ABS 0.05 k/uL Normal <0.10 [facility] Comment on above: Order Comment: Speci men Type: BLOOD SPECIMENOrdering Facility: [facility] Address: [address] [place] [address] Performed By: #### 5 7021-8 ####[facility] LABORATORYCLIA [id number] [address] [place] Lymphocytes (Bld) [#/Vol] 1.93 10*3/uL Normal 1.00-4.00 [facility] Comment on above: Order Comment: Speci men Type: BLOOD SPECIMENOrdering Facility: [facility] Address: [address] [place] [address] Performed By: #### 5 7021-8 ####[facility] LABORATORYCLIA [id number] [address] Lymphocytes/100 WBC (Bld) 18.2 % Normal [facility] Comment on above: Order Comment: Speci men Type: BLOOD SPECIMENOrdering Facility: [facility] Address: [address] [place] [address] Performed By: #### 5 7021-8 ####[facility] LABORATORYCLIA [id number] [address] MCH (RBC) [Entitic mass] 28.1 pg Normal 26.0-34.0 [facility] Comment on above: Order Comment: Speci men Type: BLOOD SPECIMENOrdering Facility: [facility] Address: [address] [place] [address] Performed By: #### 5 7021-8 ####[facility] LABORATORYCLIA [id number] [address] MCHC (RBC) [Mass/Vol] 30.4 g/dL Low 30.5-36.0 [facility] Comment on above: Order Comment: Speci men Type: BLOOD SPECIMENOrdering Facility: [facility] Address: [address] [place] [address] Performed By: #### 5 7021-8 ####[facility] LABORATORYCLIA [id number] [address] MCV (RBC) [Entitic vol] 92.5 fL Normal 80.0-100.0 [facility] Comment on above: Order Comment: Speci men Type: BLOOD SPECIMENOrdering Facility: [facility] Address: [address] [place] [address] Performed By: #### 5 7021-8 ####[facility] LABORATORYCLIA [id number] [place] [address] [place] Monocytes (Bld) [#/Vol] 0.75 10*3/uL Normal <0.87 [facility] Comment on above: Order Comment: Speci men Type: BLOOD SPECIMENOrdering Facility: [facility] Address: [address] [place] [address] Performed By: #### 5 7021-8 ####[facility] LABORATORYCLIA [id number] [place] [address] [place] Monocytes/100 WBC (Bld) 7.1 % Normal [facility] Comment on above: Order Comment: Speci men Type: BLOOD SPECIMENOrdering Facility: [facility] Address: [address] [place] [address] Performed By: #### 5 7021-8 ####[facility] LABORATORYCLIA [id number] [address] [place] Neutrophils (Bld) [#/Vol] 7.65 10*3/uL High 1.45-7.50 [facility] Comment on above: Order Comment: Speci men Type: BLOOD SPECIMENOrdering Facility: [facility] Address: [address] [place] [address] Performed By: #### 5 7021-8 ####[facility] LABORATORYCLIA [id number] [address] [place] Neutrophils/100 WBC (Bld) 72.1 % Normal [facility] Comment on above: Order Comment: Speci men Type: BLOOD SPECIMENOrdering Facility: [facility] Address: [address] [place] [address] Performed By: #### 5 7021-8 ####[facility] LABORATORYCLIA [id number] [address] [place] Nucleated RBC (Bld) [#/Vol] 10*3/uL Normal <0.01 [facility] Comment on above: Order Comment: Speci men Type: BLOOD SPECIMENOrdering Facility: [facility] Address: [address] [place] [address] Performed By: #### 5 7021-8 ####[facility] LABORATORYCLIA [id number] [address] [place] Nucleated RBC/100 WBC (Bld) [Ratio] 0.0 /100 WBC Normal [facility] Comment on above: Order Comment: Speci men Type: BLOOD SPECIMENOrdering Facility: [facility] Address: [address] [place] [address] Performed By: #### 5 7021-8 ####[facility] LABORATORYCLIA [id number] [address] [place] Platelet mean volume (Bld) [Entitic vol] 9.8 fL Normal 9.0-12.7 [facility] Comment on above: Order Comment: Speci men Type: BLOOD SPECIMENOrdering Facility: [facility] Address: [address] [place] [address] Performed By: #### 5 7021-8 ####[facility] LABORATORYCLIA [id number] [address] [place] Platelets (Bld) [#/Vol] 175 10*3/uL Normal 150-400 [facility] Comment on above: Order Comment: Speci men Type: BLOOD SPECIMENOrdering Facility: [facility] Address: [address] [place] [address] Performed By: #### 5 7021-8 ####[facility] LABORATORYCLIA [id number] [address] [place] RBC (Bld) [#/Vol] 3.20 10*6/uL Low 4.20-6.00 [facility] Comment on above: Order Comment: Speci men Type: BLOOD SPECIMENOrdering Facility: [facility] Address: [address] [place] [address] Performed By: #### 5 7021-8 ####[facility] LABORATORYCLIA [id number] [address] [place] WBC (Bld) [#/Vol] 10.60 10*3/uL Normal 3.70-11.00 [facility] Comment on above: Order Comment: Speci men Type: BLOOD SPECIMENOrdering Facility: [facility] Address: [address] [place] [address] Performed By: #### 5 7021-8 ####[facility] LABORATORYCLIA [id number] [address] OF [facility] CT BRAIN WO IVCONon 08-09-19 CT BRAIN WO IVCON Normal [facility] NURSING PROGon 08-08-2021 NURSING PROG Normal [facility] Prealbumin [Mass/Vol]on Prealbumin Nephelometry [Mass/Vol] 29 mg/dL Normal [facility] Comment on above: Order Comment: Speci men Type: BLOOD SPECIMENOrdering Facility: [facility] Address: [address] [place] [address] Performed By: #### 1 4338-8 ####[facility] LABORATORYCLIA [id number] [address] SARS-CoV-2 RNA Resp Ql MEGAN+p robeon 08-08-2021 SARS-CoV-2 (COVID-19) RNA MEGAN+probe Ql (Resp) COVID 19 RESULT: SARS-CoV-2 (Agent of COVID-19) Not Detected by RT-PCR or equivalent method. This test has been authorized by FDA under an Emergency Use Authorization (EUA). Normal [facility] Comment on above: Performed By: #### 9 4500-6 ####[facility] LABORATORYCLIA [id number] [address] [place] ALLIED HEALTHon 08-07-2021 ALLIED HEALTH Normal [facility] Basic metabolic 2000 panelon 08-07-2021 Anion gap [Moles/Vol] 9 mmol/L Normal - [facility] Comment on above: Order Comment: Speci men Type: BLOOD SPECIMENOrdering Facility: [facility] Address: [address] [place] [address] Performed By: #### 2 4321-2, 2777-1, , HFP ####[facility] LABORATORYCLIA [id number] [place] [address] [place] Calcium [Mass/Vol] 9.4 mg/dL Normal 8.5-10.2 [facility] Comment on above: Order Comment: Speci men Type: BLOOD SPECIMENOrdering Facility: [facility] Address: [address] [place] [address] Performed By: #### 2 4321-2, 2776-05, , HFP ####[facility] LABORATORYCLIA [id number] [place] [address] [place] Chloride [Moles/Vol] 98 mmol/L Normal 97-105 [facility] Comment on above: Order Comment: Speci men Type: BLOOD SPECIMENOrdering Facility: [facility] Address: [address] [place] [address] Performed By: #### 2 4321-2, 2776-05, , HFP ####[facility] LABORATORYCLIA [id number] [place] [address] [place] CO2 [Moles/Vol] 29 mmol/L Normal 22-30 [facility] Comment on above: Order Comment: Speci men Type: BLOOD SPECIMENOrdering Facility: [facility] Address: [address] [place] [address] Performed By: #### 2 4321-2, 2776-05, , HFP ####[facility] LABORATORYCLIA [id number] [place] [address] [place] Creatinine [Mass/Vol] 0.67 mg/dL Low 0.73-1.22 [facility] Comment on above: Order Comment: Speci men Type: BLOOD SPECIMENOrdering Facility: [facility] Address: [address] [place], [place] [address] Performed By: #### 2 4321-2, 2776-05, , HFP ####[facility] LABORATORYCLIA [id number] [place] [address] [place] ESTIMATED GLOMERULAR FILTRATION RATE 101 mL/min/1.73m??? Normal >=60 [facility] Comment on above: Order Comment: Shira feldman Type: BLOOD SPECIMENOrdering Facility: [facility] Address: [address] [place] [address] Result Comment: Luzmaria mated Glomerular Filtration Rate [...] Performed By: #### 2 4321-2, 2777-, , [facility] ####[facility] LABORATORYCLIA [id number] [place] [address] [place] Glucose [Mass/Vol] 117 mg/dL High 74-99 [facility] Comment on above: Order Comment: Shira feldman Type: BLOOD SPECIMENOrdering Facility: [facility] Address: [address] [place] [address] Result Comment: The [place] [employer] (ADA) provides guidance for cutoff [...] Standards of Medical Care in Diabetes 2016, [place] [employer]. Diabetes Care. 2016.39(Suppl 1). Performed By: #### 2 4321-2, 2777-, , [facility] ####[facility] LABORATORYCLIA [id number] [place] [address] [place] Potassium [Moles/Vol] 4.1 mmol/L Normal 3.7-5.1 [facility] Comment on above: Order Comment: Speci men Type: BLOOD SPECIMENOrdering Facility: [facility] Address: [address] [place], [place] [address] Performed By: #### 2 4321-2, 2776-05, , [facility] ####[facility] LABORATORYCLIA [id number] [address] [place] Sodium [Moles/Vol] 136 mmol/L Normal 136-144 [facility] Comment on above: Order Comment: Speci men Type: BLOOD SPECIMENOrdering Facility: [facility] Address: [address] [place] [address] Performed By: #### 2 4321-2, 2776-05, , [facility] ####[facility] LABORATORYCLIA [id number] [address] [place] Urea nitrogen [Mass/Vol] 31 mg/dL High 9-24 [facility] Comment on above: Order Comment: Speci men Type: BLOOD SPECIMENOrdering Facility: [facility] Address: [address] [place] [address] Performed By: #### 2 4321-2, 2776-05, , [facility] ####[facility] LABORATORYCLIA [id number] [address] [place] CBC W Auto Differential pane l (Bld)on 08-07-2021 Basophils (Bld) [#/Vol] 0.03 10*3/uL Normal <0.11 [facility] Comment on above: Order Comment: Speci men Type: BLOOD SPECIMENOrdering Facility: [facility] Address: [address] [place] [address] Performed By: #### 5 7021-8 ####[facility] LABORATORYCLIA [id number] [address] Basophils/100 WBC (Bld) 0.3 % Normal [facility] Comment on above: Order Comment: Speci men Type: BLOOD SPECIMENOrdering Facility: [facility] Address: [address] [place], [place] [address] Performed By: #### 5 7021-8 ####[facility] LABORATORYCLIA [id number] [address] Differential cell count method Nom (Bld) Auto Normal [facility] Comment on above: Order Comment: Speci men Type: BLOOD SPECIMENOrdering Facility: [facility] Address: [address] [place] [address] Performed By: #### 5 7021-8 ####[facility] LABORATORYCLIA [id number] [address] Eosinophils (Bld) [#/Vol] 0.16 10*3/uL Normal <0.46 [facility] Comment on above: Order Comment: Speci men Type: BLOOD SPECIMENOrdering Facility: [facility] Address: [address] [place] [address] Performed By: #### 5 7021-8 ####[facility] LABORATORYCLIA [id number] [address] Eosinophils/100 WBC (Bld) 1.6 % Normal [facility] Comment on above: Order Comment: Speci men Type: BLOOD SPECIMENOrdering Facility: [facility] Address: [address] [place] [address] Performed By: #### 5 7021-8 ####[facility] LABORATORYCLIA [id number] [address] Erythrocyte distribution width (RBC) [Ratio] 18.1 % High 11.5-15.0 [facility] Comment on above: Order Comment: Speci men Type: BLOOD SPECIMENOrdering Facility: [facility] Address: [address] [place] [address] Performed By: #### 5 7021-8 ####[facility] LABORATORYCLIA [id number] [address] [place] Hematocrit (Bld) [Volume fraction] 30.6 % Low 39.0-51.0 [facility] Comment on above: Order Comment: Speci men Type: BLOOD SPECIMENOrdering Facility: [facility] Address: [address] [place] [address] Performed By: #### 5 7021-8 ####[facility] LABORATORYCLIA [id number] [address] Hemoglobin (Bld) [Mass/Vol] 9.4 g/dL Low 13.0-17.0 [facility] Comment on above: Order Comment: Speci men Type: BLOOD SPECIMENOrdering Facility: [facility] Address: [address] [place] [address] Performed By: #### 5 7021-8 ####[facility] LABORATORYCLIA [id number] [address] IMMATURE GRAN % 0.4 % Normal [facility] Comment on above: Order Comment: Speci men Type: BLOOD SPECIMENOrdering Facility: [facility] Address: [address] [place] [address] Performed By: #### 5 7021-8 ####[facility] LABORATORYCLIA [id number] [address] IMMATURE GRAN ABS 0.04 k/uL Normal <0.10 [facility] Comment on above: Order Comment: Speci men Type: BLOOD SPECIMENOrdering Facility: [facility] Address: [address] [place] [address] Performed By: #### 5 7021-8 ####[facility] LABORATORYCLIA [id number] [address] Lymphocytes (Bld) [#/Vol] 2.05 10*3/uL Normal 1.00-4.00 [facility] Comment on above: Order Comment: Speci men Type: BLOOD SPECIMENOrdering Facility: [facility] Address: [address] [place] [address] Performed By: #### 5 7021-8 ####[facility] LABORATORYCLIA [id number] [address] Lymphocytes/100 WBC (Bld) 20.2 % Normal [facility] Comment on above: Order Comment: Speci men Type: BLOOD SPECIMENOrdering Facility: [facility] Address: [address] [place] [address] Performed By: #### 5 7021-8 ####[facility] LABORATORYCLIA [id number] [address] MCH (RBC) [Entitic mass] 28.8 pg Normal 26.0-34.0 [facility] Comment on above: Order Comment: Speci men Type: BLOOD SPECIMENOrdering Facility: [facility] Address: [address] [place] [address] Performed By: #### 5 7021-8 ####[facility] LABORATORYCLIA [id number] [address] MCHC (RBC) [Mass/Vol] 30.7 g/dL Normal 30.5-36.0 [facility] Comment on above: Order Comment: Speci men Type: BLOOD SPECIMENOrdering Facility: [facility] Address: [address] [place] [address] Performed By: #### 5 7021-8 ####[facility] LABORATORYCLIA [id number] MCV (RBC) [Entitic vol] 93.9 fL Normal 80.0-100.0 [facility] Comment on above: Order Comment: Speci men Type: BLOOD SPECIMENOrdering Facility: [facility] Address: [address] [place] [address] Performed By: #### 5 7021-8 ####[facility] LABORATORYCLIA [id number] Monocytes (Bld) [#/Vol] 0.64 10*3/uL Normal <0.87 [facility] Comment on above: Order Comment: Speci men Type: BLOOD SPECIMENOrdering Facility: [facility] Address: [address] [place] [address] Performed By: #### 5 7021-8 ####[facility]ORATORYCLIA [id number] [address] [place] Monocytes/100 WBC (Bld) 6.3 % Normal [facility] Comment on above: Order Comment: Speci men Type: BLOOD SPECIMENOrdering Facility: [facility] Address: [address] [place] [address] Performed By: #### 5 7021-8 ####[facility]ATORYCLIA [id number] [address] [place] Neutrophils (Bld) [#/Vol] 7.22 10*3/uL Normal 1.45-7.50 [facility] Comment on above: Order Comment: Speci men Type: BLOOD SPECIMENOrdering Facility: [facility] Address: [address] [place] [address] Performed By: #### 5 7021-8 ####[facility] LABORATORYCLIA [id number] [address] Neutrophils/100 WBC (Bld) 71.2 % Normal [facility] Comment on above: Order Comment: Speci men Type: BLOOD SPECIMENOrdering Facility: [facility] Address: [address] [place] [address] Performed By: #### 5 7021-8 ####[facility]ORYCLIA [id number] [address] [place] Nucleated RBC (Bld) [#/Vol] 10*3/uL Normal <0.01 [facility] Comment on above: Order Comment: Speci men Type: BLOOD SPECIMENOrdering Facility: [facility] Address: [address] [place] [address] Performed By: #### 5 7021-8 ####[facility]ORYCLIA [id number] [address] [place] Nucleated RBC/100 WBC (Bld) [Ratio] 0.0 /100 WBC Normal [facility] Comment on above: Order Comment: Speci men Type: BLOOD SPECIMENOrdering Facility: [facility] Address: [address] Performed By: #### 5 7021-8 ####[facility] LABORATORYCLIA [id number] [address] Platelet mean volume (Bld) [Entitic vol] 9.9 fL Normal 9.0-12.7 [facility] Comment on above: Order Comment: Speci men Type: BLOOD SPECIMENOrdering Facility: [facility] Address: [address] [place], [place] [address] Performed By: #### 5 7021-8 ####[facility] LABORATORYCLIA [id number] [address] OF [facility] Platelets (Bld) [#/Vol] 227 10*3/uL Normal 150-400 [facility] Comment on above: Order Comment: Speci men Type: BLOOD SPECIMENOrdering Facility: [facility] Address: [address] [place] [address] Performed By: #### 5 7021-8 ####[facility] LABORATORYCLIA [id number] [address] [place] RBC (Bld) [#/Vol] 3.26 10*6/uL Low 4.20-6.00 [facility] Comment on above: Order Comment: Speci men Type: BLOOD SPECIMENOrdering Facility: [facility] Address: [address] [place], [place] [address] Performed By: #### 5 7021-8 ####[facility] LABORATORYCLIA [id number] [address] [place] WBC (Bld) [#/Vol] 10.14 10*3/uL Normal 3.70-11.00 [facility] Comment on above: Order Comment: Speci men Type: BLOOD SPECIMENOrdering Facility: [facility] Address: [address] [place], [place] [address] Performed By: #### 5 7021-8 ####[facility] LABORATORYCLIA [id number] [address] BRAIN WO IVCONon 08-08-19 CT BRAIN WO IVCON Normal [facility] HEPATIC FUNCTION PNLon 08-07 Albumin [Mass/Vol] 3.6 g/dL Low 3.9-4.9 [facility] Comment on above: Order Comment: Speci men Type: BLOOD SPECIMENOrdering Facility: [facility] Address: [address] [place] [address] Performed By: #### 2 4321-2, 277-, , HFP ####[facility] LABORATORYCLIA [id number] [address] [place] ALP [Catalytic activity/Vol] 124 U/L High 38-113 [facility] Comment on above: Order Comment: Speci men Type: BLOOD SPECIMENOrdering Facility: [facility] Address: [address] [place] [address] Performed By: #### 2 4321-2, 2776-05, , HFP ####[facility] LABORATORYCLIA [id number] [address] STATES OF [facility] ALT With P-5'-P [Catalytic activity/Vol] 29 U/L Normal 10-54 [facility] Comment on above: Order Comment: Speci men Type: BLOOD SPECIMENOrdering Facility: [facility] Address: [address] [place] [address] Performed By: #### 2 4321-2, 2776-05, , HFP ####[facility] LABORATORYCLIA [id number] [address] AST With P-5'-P [Catalytic activity/Vol] 18 U/L Normal 14-40 [facility] Comment on above: Order Comment: Speci men Type: BLOOD SPECIMENOrdering Facility: [facility] Address: [address] [place] [address] Performed By: #### 2 4321-2, 2777-1, , HFP ####[facility] LABORATORYCLIA [id number] [address] STATES OF [facility] Bilirubin [Mass/Vol] 0.3 mg/dL Normal 0.2-1.3 [facility] Comment on above: Order Comment: Speci men Type: BLOOD SPECIMENOrdering Facility: [facility] Address: [address] [place] [address] Performed By: #### 2 4321-2, 2777-1, , HFP ####[facility] LABORATORYCLIA [id number] [address] Bilirubin.conjugated [Mass/Vol] mg/dL Normal <0.2 [facility] Comment on above: Order Comment: Speci men Type: BLOOD SPECIMENOrdering Facility: [facility] Address: [address] [place] [address] Performed By: #### 2 4321-2, 277-, , HFP ####[facility] LABORATORYCLIA [id number] [address] Protein [Mass/Vol] 6.4 g/dL Normal 6.3-8.0 [facility] Comment on above: Order Comment: Speci men Type: BLOOD SPECIMENOrdering Facility: [facility] Address: [address] [place] [address] Performed By: #### 2 4321-2, 277-1, , HFP ####[facility] LABORATORYCLIA [id number] [address] [place] Magnesium SerPl-mCncon 08-07 Magnesium [Mass/Vol] 2.3 mg/dL Normal 1.7-2.3 [facility] Comment on above: Order Comment: Speci men Type: BLOOD SPECIMENOrdering Facility: [facility] Address: [address] [place] [address] Performed By: #### 2 4321-2, 2777-1, , HFP ####[facility] LABORATORYCLIA [id number] [address] NURSING PROGon 08-07-2021 NURSING PROG Normal [facility] Phosphate SerPl-mCncon 08-07 Phosphate [Mass/Vol] 3.5 mg/dL Normal 2.7-4.8 [facility] Comment on above: Order Comment: Speci men Type: BLOOD SPECIMENOrdering Facility: [facility] Address: [address] [place] [address] Performed By: #### 2 4321-2, 2776-, , HFP ####[facility] LABORATORYCLIA [id number] [address] OF [facility] ANES POSTPROC EVALon 022 ANES POSTPROC EVAL Normal [facility] Basic metabolic 2000 panelon 08-06-2021 Anion gap [Moles/Vol] 11 mmol/L Normal 9-18 [facility] Comment on above: Order Comment: Speci men Type: BLOOD SPECIMENOrdering Facility: [facility] Address: [address] [place] [address] Performed By: #### 2 4321-2, 2776-05, ####[facility] LABORATORYCLIA [id number] [place] [address] [place] Calcium [Mass/Vol] 8.2 mg/dL Low 8.5-10.2 [facility] Comment on above: Order Comment: Speci men Type: BLOOD SPECIMENOrdering Facility: [facility] Address: [address] [place] [address] Performed By: #### 2 4321-2, 2776-05, ####[facility] LABORATORYCLIA [id number] [place] [address] [place] Chloride [Moles/Vol] 100 mmol/L Normal 97-105 [facility] Comment on above: Order Comment: Speci men Type: BLOOD SPECIMENOrdering Facility: [facility] Address: [address] [place] [address] Performed By: #### 2 4321-2, 2776-05, ####[facility]ITALCLIA [id number] [place] [address] [place] CO2 [Moles/Vol] 23 mmol/L Normal 22-30 [facility] Comment on above: Order Comment: Speci men Type: BLOOD SPECIMENOrdering Facility: [facility] Address: [address] [place] [address] Performed By: #### 2 4321-2, 2776-05, ####[facility] LABORATORYCLIA [id number] [place] [address] [place] [facility] Creatinine [Mass/Vol] 0.55 mg/dL Low 0.73-1.22 [facility] Comment on above: Order Comment: Speci men Type: BLOOD SPECIMENOrdering Facility: [facility] Address: [address] [place] [address] Performed By: #### 2 4321-2, 2776-05, ####[facility] HOSPITALIA [id number] [address] ESTIMATED GLOMERULAR FILTRATION RATE 107 mL/min/1.73m??? Normal >=60 [facility] Comment on above: Order Comment: Speci men Type: BLOOD SPECIMENOrdering Facility: [facility] Address: [address] [place] [address] Result Comment: Luzmaria mated Glomerular Filtration Rate [...] 2 4321-2, 2776-05, ####[facility] LABORATORYCLIA [id number] [place] [address] [place] Glucose [Mass/Vol] 275 mg/dL High 74-99 [facility] Comment on above: Order Comment: Speci men Type: BLOOD SPECIMENOrdering Facility: [facility] Address: [address] [id number] Result Comment: The [place] [employer] (ADA) provides guidance for cutoff [...] Standards of Medical Care in Diabetes 2016, [place] [employer]. Diabetes Care. 2016.39(Suppl 1). Performed By: #### 2 4321-2, 2776-05, ####[facility] LABORATORYCLIA [id number] [place] [address] [place] Potassium [Moles/Vol] 3.6 mmol/L Low 3.7-5.1 [facility] Comment on above: Order Comment: Speci men Type: BLOOD SPECIMENOrdering Facility: [facility] Address: [address] [place], [place] [address] Performed By: #### 2 4321-2, 2776-05, ####[facility] LABORATORYCLIA [id number] [place] [address] [place] Sodium [Moles/Vol] 134 mmol/L Low 136-144 [facility] Comment on above: Order Comment: Speci men Type: BLOOD SPECIMENOrdering Facility: [facility] Address: [address] [id number] Performed By: #### 2 4321-2, 2776-05, ####[facility] LABORATORYCLIA [id number] [place] [address] [place] Urea nitrogen [Mass/Vol] 29 mg/dL High 9-24 [facility] Comment on above: Order Comment: Speci men Type: BLOOD SPECIMENOrdering Facility: [facility] Address: [address] [address] Performed By: #### 2 4321-2, 2777-1, 68670-1 ####[facility] LABORATORYCLIA [id number] [address] CBC W Auto Differential pane l (Bld)on 08-06-2021 Basophils (Bld) [#/Vol] 0.03 10*3/uL Normal <0.11 [facility] Comment on above: Order Comment: Speci men Type: BLOOD SPECIMENOrdering Facility: [facility] Address: [address] [place] [address] Performed By: #### 5 7021-8 ####[facility]ORATORYCLIA [id number] [address] Basophils/100 WBC (Bld) 0.3 % Normal [facility] Comment on above: Order Comment: Speci men Type: BLOOD SPECIMENOrdering Facility: [facility] Address: [address] [place] [address] Performed By: #### 5 7021-8 ####[facility] LABORATORYCLIA [id number] [address] Differential cell count method Nom (Bld) Auto Normal [facility] Comment on above: Order Comment: Speci men Type: BLOOD SPECIMENOrdering Facility: [facility] Address: [address] [place] [address] Performed By: #### 5 7021-8 ####[facility] LABORATORYCLIA [id number] [address] STATES OF [facility] Eosinophils (Bld) [#/Vol] 0.18 10*3/uL Normal <0.46 [facility] Comment on above: Order Comment: Speci men Type: BLOOD SPECIMENOrdering Facility: [facility] Address: [address] [place] [address] Performed By: #### 5 7021-8 ####[facility] LABORATORYCLIA [id number] [address] [place] Eosinophils/100 WBC (Bld) 1.6 % Normal [facility] Comment on above: Order Comment: Speci men Type: BLOOD SPECIMENOrdering Facility: [facility] Address: [address] [place] [address] Performed By: #### 5 7021-8 ####[facility] LABORATORYCLIA [id number] [address] Erythrocyte distribution width (RBC) [Ratio] 17.9 % High 11.5-15.0 [facility] Comment on above: Order Comment: Speci men Type: BLOOD SPECIMENOrdering Facility: [facility] Address: [address] [place] [address] Performed By: #### 5 7021-8 ####[facility] LABORATORYCLIA [id number] [address] Hematocrit (Bld) [Volume fraction] 27.6 % Low 39.0-51.0 [facility] Comment on above: Order Comment: Speci men Type: BLOOD SPECIMENOrdering Facility: [facility] Address: [address] [place] [address] Performed By: #### 5 7021-8 ####[facility] LABORATORYCLIA [id number] [address] Hemoglobin (Bld) [Mass/Vol] 8.5 g/dL Low 13.0-17.0 [facility] Comment on above: Order Comment: Speci men Type: BLOOD SPECIMENOrdering Facility: [facility] Address: [address] [place] [address] Performed By: #### 5 7021-8 ####[facility] LABORATORYCLIA [id number] [address] IMMATURE GRAN % 0.6 % Normal [facility] Comment on above: Order Comment: Speci men Type: BLOOD SPECIMENOrdering Facility: [facility] Address: [address] [place] [address] Performed By: #### 5 7021-8 ####[facility]ORATORYCLIA [id number] [address] IMMATURE GRAN ABS 0.07 k/uL Normal <0.10 [facility] Comment on above: Order Comment: Speci men Type: BLOOD SPECIMENOrdering Facility: [facility] Address: [address] [place] [address] Performed By: #### 5 7021-8 ####[facility] LABORATORYCLIA [id number] [address] Lymphocytes (Bld) [#/Vol] 1.81 10*3/uL Normal 1.00-4.00 [facility] Comment on above: Order Comment: Speci men Type: BLOOD SPECIMENOrdering Facility: [facility] Address: [address] [place] [address] Performed By: #### 5 7021-8 ####[facility]ORATORYCLIA [id number] [address] Lymphocytes/100 WBC (Bld) 15.7 % Normal [facility] Comment on above: Order Comment: Speci men Type: BLOOD SPECIMENOrdering Facility: [facility] Address: [address] [place] [address] Performed By: #### 5 7021-8 ####[facility]ORATORYCLIA [id number] [address] MCH (RBC) [Entitic mass] 28.6 pg Normal 26.0-34.0 [facility] Comment on above: Order Comment: Speci men Type: BLOOD SPECIMENOrdering Facility: [facility] Address: [address] [place] [address] Performed By: #### 5 7021-8 ####[facility]ORATORYCLIA [id number] [address] MCHC (RBC) [Mass/Vol] 30.8 g/dL Normal 30.5-36.0 [facility] Comment on above: Order Comment: Speci men Type: BLOOD SPECIMENOrdering Facility: [facility] Address: [address] [place] [address] Performed By: #### 5 7021-8 ####[facility]ATORYCLIA [id number] [address] STATES OF [facility] MCV (RBC) [Entitic vol] 92.9 fL Normal 80.0-100.0 [facility] Comment on above: Order Comment: Speci men Type: BLOOD SPECIMENOrdering Facility: [facility] Address: [address] [place] [address] Performed By: #### 5 7021-8 ####[facility]ORATORYCLIA [id number] [address] Monocytes (Bld) [#/Vol] 0.63 10*3/uL Normal <0.87 [facility] Comment on above: Order Comment: Speci men Type: BLOOD SPECIMENOrdering Facility: [facility] Address: [address] [place] [address] Performed By: #### 5 7021-8 ####[facility] LABORATORYCLIA [id number] [address] Monocytes/100 WBC (Bld) 5.5 % Normal [facility] Comment on above: Order Comment: Speci men Type: BLOOD SPECIMENOrdering Facility: [facility] Address: [address] [place] [address] Performed By: #### 5 7021-8 ####[facility]ORATORYCLIA [id number] [address] [place] Neutrophils (Bld) [#/Vol] 8.78 10*3/uL High 1.45-7.50 [facility] Comment on above: Order Comment: Speci men Type: BLOOD SPECIMENOrdering Facility: [facility] Address: [address] [place] [address] Performed By: #### 5 7021-8 ####[facility]ORATORYCLIA [id number] [address] [place] Neutrophils/100 WBC (Bld) 76.3 % Normal [facility] Comment on above: Order Comment: Speci men Type: BLOOD SPECIMENOrdering Facility: [facility] Address: [address] [address] Performed By: #### 5 7021-8 ####[facility]ORATORYCLIA [id number] [address] [place] Nucleated RBC (Bld) [#/Vol] 10*3/uL Normal <0.01 [facility] Comment on above: Order Comment: Speci men Type: BLOOD SPECIMENOrdering Facility: [facility] Address: [address] [place] [address] Performed By: #### 5 7021-8 ####[facility]ORATORYCLIA [id number] [address] [place] Nucleated RBC/100 WBC (Bld) [Ratio] 0.0 /100 WBC Normal [facility] Comment on above: Order Comment: Speci men Type: BLOOD SPECIMENOrdering Facility: [facility] Address: [address] [place] [address] Performed By: #### 5 7021-8 ####[facility]ORATORYCLIA [id number] [address] [place] Platelet mean volume (Bld) [Entitic vol] 9.9 fL Normal 9.0-12.7 [facility] Comment on above: Order Comment: Speci men Type: BLOOD SPECIMENOrdering Facility: [facility] Address: [address] Performed By: #### 5 7021-8 ####[facility] LABORATORYCLIA [id number] [place] [address] [place] Platelets (Bld) [#/Vol] 230 10*3/uL Normal 150-400 [facility] Comment on above: Order Comment: Speci men Type: BLOOD SPECIMENOrdering Facility: [facility] Address: [address] Performed By: #### 5 7021-8 ####[facility]ORATORYCLIA [id number] [address] [place] RBC (Bld) [#/Vol] 2.97 10*6/uL Low 4.20-6.00 [facility] Comment on above: Order Comment: Speci men Type: BLOOD SPECIMENOrdering Facility: [facility] Address: [address] [place] [address] Performed By: #### 5 7021-8 ####[facility] LABORATORYCLIA [id number] [address] WBC (Bld) [#/Vol] 11.50 10*3/uL High 3.70-11.00 [facility] Comment on above: Order Comment: Speci men Type: BLOOD SPECIMENOrdering Facility: [facility] Address: [address] [place] [address] Performed By: #### 5 7021-8 ####[facility]ORATORYCLIA [id number] [address] CONSULT PROGon 08-06-2021 CONSULT PROG Normal [facility] Magnesium SerPl-mCncon 08-06 Magnesium [Mass/Vol] 1.9 mg/dL Normal 1.7-2.3 [facility] Comment on above: Order Comment: Speci men Type: BLOOD SPECIMENOrdering Facility: [facility] Address: [address] [place] [address] Performed By: #### 2 4321-2, 2777-1, 99528-2 ####[facility] LABORATORYCLIA [id number] [address] [place] NURSING PROGon 08-06-2021 NURSING PROG Normal [facility] OPERATIVE NOon 08-06-2021 OPERATIVE NO Normal [facility] Phosphate SerPl-mCncon 08-06 Phosphate [Mass/Vol] 4.2 mg/dL Normal 2.7-4.8 [facility] Comment on above: Order Comment: Speci men Type: BLOOD SPECIMENOrdering Facility: [facility] Address: [address] [id number] Performed By: #### 2 4321-2, 2777-1, 95242-6 ####[facility] LABORATORYCLIA [id number] [place] [address] [place] ALLIED HEALTHon 08-05-2021 ALLIED HEALTH Normal [facility] ALLIED HEALTH Normal [facility] ANES PRE-OPon 08-05-2021 ANES PRE-OP Normal [facility] BRIEF OP NOTon 08-05-2021 BRIEF OP NOT Normal [facility] Bacteria Spec Resp Culton Bacteria identified Respiratory culture Nom (Unsp spec) CULTURE, RESPIRATORY: Few Normal respiratory chris present ORGANISM ID: 1 Few Proteus species Insignificant colony count. No further workup. GRAM STAIN: No organisms seen Few Polymorphonuclear leukocytes Few Epithelial cells Abnormal [facility] Comment on above: Performed By: #### 3 2355-0 ####[facility]ORATORYCLIA [id number] [place] [address] [place] Bacteria Ur Culton Bacteria identified Cx Nom (U) CULTURE, URINE: No growth (<1,000 CFU/ml) Normal [facility] Comment on above: Performed By: #### 6 30-4 ####[facility]ORATORYCLIA [id number] [place] [address] [place] Basic metabolic 2000 panelon 08-05-2021 Anion gap [Moles/Vol] 7 mmol/L Low 9-18 [facility] Comment on above: Order Comment: Speci men Type: BLOOD SPECIMENOrdering Facility: [facility] Address: [address] [address] Performed By: #### 2 4321-2 ####[facility]ORATORYCLIA [id number] [place] [address] [place] Calcium [Mass/Vol] 9.5 mg/dL Normal 8.5-10.2 [facility] Comment on above: Order Comment: Speci men Type: BLOOD SPECIMENOrdering Facility: [facility] Address: [address] [address] Performed By: #### 2 4321-2 ####[facility] LABORATORYCLIA [id number] [address] [place] Chloride [Moles/Vol] 97 mmol/L Normal 97-105 [facility] Comment on above: Order Comment: Speci men Type: BLOOD SPECIMENOrdering Facility: [facility] Address: [address] [place] [address] Performed By: #### 2 4321-2 ####[facility]ORATORYCLIA [id number] [address] [place] CO2 [Moles/Vol] 30 mmol/L Normal 22-30 [facility] Comment on above: Order Comment: Speci men Type: BLOOD SPECIMENOrdering Facility: [facility] Address: [address] [place] [address] Performed By: #### 2 4321-2 ####[facility] LABORATORYCLIA [id number] [address] OF [facility] Creatinine [Mass/Vol] 0.61 mg/dL Low 0.73-1.22 [facility] Comment on above: Order Comment: Speci men Type: BLOOD SPECIMENOrdering Facility: [facility] Address: [address] [place] [address] Performed By: #### 2 4321-2 ####[facility]ORATORYCLIA [id number] [address] ESTIMATED GLOMERULAR FILTRATION RATE 104 mL/min/1.73m??? Normal >=60 [facility] Comment on above: Order Comment: Speci men Type: BLOOD SPECIMENOrdering Facility: [facility] Address: [address] [place] [address] Result Comment: Luzmaria mated Glomerular Filtration Rate [...] #### 2 4321-2 ####[facility] LABORATORYCLIA [id number] [place] [address] [place] Glucose [Mass/Vol] 124 mg/dL High 74-99 [facility] Comment on above: Order Comment: Shira francia Type: BLOOD SPECIMENOrdering Facility: [facility] Address: [address] [place] [address] Result Comment: The [place] [employer] (ADA) provides guidance for cutoff [...] Standards of Medical Care in Diabetes 2016, [place] [employer]. Diabetes Care. 2016.39(Suppl 1). Performed By: #### 2 4321-2 ####[facility] LABORATORYCLIA [id number] [place] [address] [place] Potassium [Moles/Vol] 4.9 mmol/L Normal 3.7-5.1 [facility] Comment on above: Order Comment: Shira francia Type: BLOOD SPECIMENOrdering Facility: [facility] Address: [address] [address] Performed By: #### 2 4321-2 ####[facility] LABORATORYCLIA [id number] [place] [address] [place] Sodium [Moles/Vol] 134 mmol/L Low 136-144 [facility] Comment on above: Order Comment: Shira francia Type: BLOOD SPECIMENOrdering Facility: [facility] Address: [address] [address] Performed By: #### 2 4321-2 ####[facility] LABORATORYCLIA [id number] [address] STATES [facility] Urea nitrogen [Mass/Vol] 40 mg/dL High 9-24 [facility] Comment on above: Order Comment: Speci men Type: BLOOD SPECIMENOrdering Facility: [facility] Address: [address] [place] [address] Performed By: #### 2 4321-2 ####[facility] LABORATORYCLIA [id number] [address] STATES OF [facility] CBC W Auto Differential pane l (Bld)on 08-05-2021 Basophils (Bld) [#/Vol] 0.04 10*3/uL Normal <0.11 [facility] Comment on above: Order Comment: Speci men Type: BLOOD SPECIMENOrdering Facility: [facility] Address: [address] [place] [address] Performed By: #### 5 7021-8 ####[facility]ORATORYCLIA [id number] [address] STATES [facility] Basophils/100 WBC (Bld) 0.3 % Normal [facility] Comment on above: Order Comment: Speci men Type: BLOOD SPECIMENOrdering Facility: [facility] Address: [address] [place] [address] Performed By: #### 5 7021-8 ####[facility]ORATORYCLIA [id number] [address] Differential cell count method Nom (Bld) Auto Normal [facility] Comment on above: Order Comment: Speci men Type: BLOOD SPECIMENOrdering Facility: [facility] Address: [address] [place] [address] Performed By: #### 5 7021-8 ####[facility]ORATORYCLIA [id number] [address] STATES [facility] Eosinophils (Bld) [#/Vol] 0.42 10*3/uL Normal <0.46 [facility] Comment on above: Order Comment: Speci men Type: BLOOD SPECIMENOrdering Facility: [facility] Address: [address] [place] [address] Performed By: #### 5 7021-8 ####[facility]ORATORYCLIA [id number] [address] Eosinophils/100 WBC (Bld) 3.6 % Normal [facility] Comment on above: Order Comment: Speci men Type: BLOOD SPECIMENOrdering Facility: [facility] Address: [address] [place] [address] Performed By: #### 5 7021-8 ####[facility]ORATORYCLIA [id number] [address] Erythrocyte distribution width (RBC) [Ratio] 17.9 % High 11.5-15.0 [facility] Comment on above: Order Comment: Speci men Type: BLOOD SPECIMENOrdering Facility: [facility] Address: [address] [place] [address] Performed By: #### 5 7021-8 ####[facility] LABORATORYCLIA [id number] [address] Hematocrit (Bld) [Volume fraction] 30.8 % Low 39.0-51.0 [facility] Comment on above: Order Comment: Speci men Type: BLOOD SPECIMENOrdering Facility: [facility] Address: [address] [place] [address] Performed By: #### 5 7021-8 ####[facility]ORATORYCLIA [id number] [address] Hemoglobin (Bld) [Mass/Vol] 9.6 g/dL Low 13.0-17.0 [facility] Comment on above: Order Comment: Speci men Type: BLOOD SPECIMENOrdering Facility: [facility] Address: [address] [place] [address] Performed By: #### 5 7021-8 ####[facility]ORATORYCLIA [id number] [address] [place] IMMATURE GRAN % 0.5 % Normal [facility] Comment on above: Order Comment: Speci men Type: BLOOD SPECIMENOrdering Facility: [facility] Address: [address] [place] [address] Performed By: #### 5 7021-8 ####[facility]ORATORYCLIA [id number] [address] [place] IMMATURE GRAN ABS 0.06 k/uL Normal <0.10 [facility] Comment on above: Order Comment: Speci men Type: BLOOD SPECIMENOrdering Facility: [facility] Address: [address] [place] [address] Performed By: #### 5 7021-8 ####[facility]ORATORYCLIA [id number] [address] Lymphocytes (Bld) [#/Vol] 2.17 10*3/uL Normal 1.00-4.00 [facility] Comment on above: Order Comment: Speci men Type: BLOOD SPECIMENOrdering Facility: [facility] Address: [address] [place] [address] Performed By: #### 5 7021-8 ####[facility]ATORYCLIA [id number] [address] Lymphocytes/100 WBC (Bld) 18.7 % Normal [facility] Comment on above: Order Comment: Speci men Type: BLOOD SPECIMENOrdering Facility: [facility] Address: [address] [place] [address] Performed By: #### 5 7021-8 ####[facility]ORATORYCLIA [id number] [address] STATES [facility] MCH (RBC) [Entitic mass] 28.9 pg Normal 26.0-34.0 [facility] Comment on above: Order Comment: Speci men Type: BLOOD SPECIMENOrdering Facility: [facility] Address: [address] [place] [address] Performed By: #### 5 7021-8 ####[facility]ORATORYCLIA [id number] [address] MCHC (RBC) [Mass/Vol] 31.2 g/dL Normal 30.5-36.0 [facility] Comment on above: Order Comment: Speci men Type: BLOOD SPECIMENOrdering Facility: [facility] Address: [address] [place] [address] Performed By: #### 5 7021-8 ####[facility]ORATORYCLIA [id number] [address] OF [facility] MCV (RBC) [Entitic vol] 92.8 fL Normal 80.0-100.0 [facility] Comment on above: Order Comment: Speci men Type: BLOOD SPECIMENOrdering Facility: [facility] Address: [address] [place] [address] Performed By: #### 5 7021-8 ####[facility]ORATORYCLIA [id number] [address] STATES [facility] Monocytes (Bld) [#/Vol] 0.71 10*3/uL Normal <0.87 [facility] Comment on above: Order Comment: Speci men Type: BLOOD SPECIMENOrdering Facility: [facility] Address: [address] [place] [address] Performed By: #### 5 7021-8 ####[facility]ORATORYCLIA [id number] [address] Monocytes/100 WBC (Bld) 6.1 % Normal [facility] Comment on above: Order Comment: Speci men Type: BLOOD SPECIMENOrdering Facility: [facility] Address: [address] [place] [address] Performed By: #### 5 7021-8 ####[facility]ORATORYCLIA [id number] [address] [place] Neutrophils (Bld) [#/Vol] 8.19 10*3/uL High 1.45-7.50 [facility] Comment on above: Order Comment: Speci men Type: BLOOD SPECIMENOrdering Facility: [facility] Address: [address] [place] [address] Performed By: #### 5 7021-8 ####[facility]ATORYCLIA [id number] [address] Neutrophils/100 WBC (Bld) 70.8 % Normal [facility] Comment on above: Order Comment: Speci men Type: BLOOD SPECIMENOrdering Facility: [facility] Address: [address] [place] [address] Performed By: #### 5 7021-8 ####[facility]ATORYCLIA [id number] [address] [place] Nucleated RBC (Bld) [#/Vol] 10*3/uL Normal <0.01 [facility] Comment on above: Order Comment: Speci men Type: BLOOD SPECIMENOrdering Facility: [facility] Address: [address] [place] [address] Performed By: #### 5 7021-8 ####[facility]ATORYCLIA [id number] [address] Nucleated RBC/100 WBC (Bld) [Ratio] 0.0 /100 WBC Normal [facility] Comment on above: Order Comment: Speci men Type: BLOOD SPECIMENOrdering Facility: [facility] Address: [address] [place] [address] Performed By: #### 5 7021-8 ####[facility]ORATORYCLIA [id number] [address] [place] Platelet mean volume (Bld) [Entitic vol] 9.6 fL Normal 9.0-12.7 [facility] Comment on above: Order Comment: Speci men Type: BLOOD SPECIMENOrdering Facility: [facility] Address: [address] [place] [address] Performed By: #### 5 7021-8 ####[facility]ORATORYCLIA [id number] [address] [place] Platelets (Bld) [#/Vol] 339 10*3/uL Normal 150-400 [facility] Comment on above: Order Comment: Speci men Type: BLOOD SPECIMENOrdering Facility: [facility] Address: [address] [place] [address] Performed By: #### 5 7021-8 ####[facility]ORATORYCLIA [id number] [address] STATES OF [facility] RBC (Bld) [#/Vol] 3.32 10*6/uL Low 4.20-6.00 [facility] Comment on above: Order Comment: Speci men Type: BLOOD SPECIMENOrdering Facility: [facility] Address: [address] [place] [address] Performed By: #### 5 7021-8 ####[facility]ORATORYCLIA [id number] [address] WBC (Bld) [#/Vol] 11.59 10*3/uL High 3.70-11.00 [facility] Comment on above: Order Comment: Speci men Type: BLOOD SPECIMENOrdering Facility: [facility] Address: [address] [place] [address] Performed By: #### 5 7021-8 ####[facility]ORATORYCLIA [id number] [address] [place] CT BRAIN WO IVCONon 08-06-19 CT BRAIN WO IVCON Normal [facility] Magnesium SerPl-mCncon 08-05 Magnesium [Mass/Vol] 2.2 mg/dL Normal 1.7-2.3 [facility] Comment on above: Order Comment: Speci men Type: BLOOD SPECIMENOrdering Facility: [facility] Address: [address] [place] [address] Performed By: #### 1 9123-9, 2777-1 ####[facility]ORATORYCLIA [id number] [address] NURSING PROGon 08-05-2021 NURSING PROG Normal [facility] NURSING PROG Normal [facility] NUTRITIONon 08-05-2021 NUTRITION Normal [facility] OPERATIVE NOon 08-05-2021 OPERATIVE NO Normal [facility] Phosphate SerPl-mCncon 08-05 Phosphate [Mass/Vol] 4.6 mg/dL Normal 2.7-4.8 [facility] Comment on above: Order Comment: Speci men Type: BLOOD SPECIMENOrdering Facility: [facility] Address: [address] [place] [address] Performed By: #### 1 9123-9, 2777-1 ####[facility]ORATORYCLIA [id number] [address] OF [facility] THERAPY NTon 08-05-2021 THERAPY NT Normal [facility] THERAPY NT Normal [facility] Urinalysis complete panel (U )on 08-05-2021 Bilirubin Ql (U) Negative Normal Negative [facility] Comment on above: Order Comment: Speci men Type: URINE SPECIMENOrdering Facility: [facility] Address: [address] [place] [address] Performed By: #### 2 4356-8 ####[facility] [id number] [address] [place] Clarity (Unsp spec) Clear Normal Clear [facility] Comment on above: Order Comment: Speci men Type: URINE SPECIMENOrdering Facility: [facility] Address: [address] [place] [address] Performed By: #### 2 4356-8 ####[facility]ITALCL[facility] [id number] [address] [place] Color (U) Light Yellow Normal yellow [facility] Comment on above: Order Comment: Speci men Type: URINE SPECIMENOrdering Facility: [facility] Address: [address] [place] [address] Performed By: #### 2 4356-8 ####[facility]ORATORYCLIA [id number] [address] Epithelial cells LM.HPF (Urine sed) [#/Area] Few Abnormal None Seen [facility] Comment on above: Order Comment: Speci men Type: URINE SPECIMENOrdering Facility: [facility] Address: [address] [place] [address] Performed By: #### 2 4356-8 ####[facility]ORATORYCLIA [id number] [address] Glucose Test strip (U) [Mass/Vol] Negative Normal Negative [facility] Comment on above: Order Comment: Speci men Type: URINE SPECIMENOrdering Facility: [facility] Address: [address] [place] [address] Performed By: #### 2 4356-8 ####[facility]ATORYCLIA [id number] [address] Hemoglobin Ql (U) Negative Normal Negative [facility] Comment on above: Order Comment: Speci men Type: URINE SPECIMENOrdering Facility: [facility] Address: [address] [place] [address] Performed By: #### 2 4356-8 ####[facility]ATORYCLIA [id number] [address] OF [facility] Hyaline casts (Urine sed) [#/Area] 1-3 /LPF Abnormal 0 /LPF [facility] Comment on above: Order Comment: Speci men Type: URINE SPECIMENOrdering Facility: [facility] Address: [address] [place] [address] Performed By: #### 2 4356-8 ####[facility]ATORYCLIA [id number] [address] STATES [facility] Ketones Ql (U) Negative Normal Negative [facility] Comment on above: Order Comment: Speci men Type: URINE SPECIMENOrdering Facility: [facility] Address: [address] [place] [address] Performed By: #### 2 4356-8 ####[facility]ATORYCLIA [id number] [address] [place] Leukocyte esterase Test strip Ql (U) Negative Normal Negative [facility] Comment on above: Order Comment: Speci men Type: URINE SPECIMENOrdering Facility: [facility] Address: [address] [place] [address] Performed By: #### 2 4356-8 ####[facility]ATORYCLIA [id number] [address] Nitrite Ql (U) Negative Normal Negative [facility] Comment on above: Order Comment: Speci men Type: URINE SPECIMENOrdering Facility: [facility] Address: [address] [place] [address] Performed By: #### 2 4356-8 ####[facility]ATORYCLIA [id number] [address] pH (U) 6.0 [pH] Normal 5.0-8.0 [facility] Comment on above: Order Comment: Speci men Type: URINE SPECIMENOrdering Facility: [facility] Address: [address] [place] [address] Performed By: #### 2 4356-8 ####[facility]ATORYCLIA [id number] [address] Protein (U) [Mass/Vol] Negative Normal Negative [facility] Comment on above: Order Comment: Speci men Type: URINE SPECIMENOrdering Facility: [facility] Address: [address] [place] [address] Performed By: #### 2 4356-8 ####[facility]ATORYCLIA [id number] [address] [place] RBC LM.HPF (Urine sed) [#/Area] 0-3 /HPF Normal 0-3 /HPF [facility] Comment on above: Order Comment: Speci men Type: URINE SPECIMENOrdering Facility: [facility] Address: [address] [place] [address] Performed By: #### 2 4356-8 ####[facility]ORATORYCLIA [id number] [address] [place] Specific gravity (U) [Rel density] 1.015 Normal 1.005-1.030 [facility] Comment on above: Order Comment: Speci men Type: URINE SPECIMENOrdering Facility: [facility] Address: [address] [place] [address] Performed By: #### 2 4356-8 ####[facility]ATORYCLIA [id number] [address] [place] Urobilinogen Ql (U) Normal Normal Negative [facility] Comment on above: Order Comment: Speci men Type: URINE SPECIMENOrdering Facility: [facility] Address: [address] [place] [address] Performed By: #### 2 4356-8 ####[facility]ATORYCLIA [id number] [address] [place] WBC LM.HPF (Urine sed) [#/Area] 0-5 /HPF Normal 0-5 /HPF [facility] Comment on above: Order Comment: Speci men Type: URINE SPECIMENOrdering Facility: [facility] Address: [address] [place] [address] Performed By: #### 2 4356-8 ####[facility]ORATORYCLIA [id number] [address] [place] XR ABDOMEN 1V SUPINEon 08-05 XR ABDOMEN 1V SUPINE Normal [facility] XR CHEST 1V FRONTALon 2021 XR CHEST 1V FRONTAL Normal [facility] XR CHEST 1V FRONTAL Normal [facility] XR NECK SOFT TISSUE 2V AP/LA Ton 08-05-2021 XR NECK SOFT TISSUE 2V AP/LAT Normal [facility] XR SKULL 2V AP/LATon 022 XR SKULL 2V AP/LAT Normal [facility] ALLIED HEALTHon 08-04-2021 ALLIED HEALTH Normal [facility] Bacteria Bld Culton 08-05-19 22 Bacteria identified Cx Nom (Bld) CULTURE, BLOOD: No growth 5 days Normal [facility] Comment on above: Performed By: #### 6 00-7 ####[facility]ATORYCLIA [id number] [address] Bacteria identified Cx Nom (Bld) CULTURE, BLOOD: No growth 5 days Normal [facility] Comment on above: Performed By: #### 6 00-7 ####[facility]ATORYCLIA [id number] [address] [place] CBC W Auto Differential pane l (Bld)on 08-04-2021 Basophils (Bld) [#/Vol] 0.05 10*3/uL Normal <0.11 [facility] Comment on above: Order Comment: Speci men Type: BLOOD SPECIMENOrdering Facility: [facility] Address: [address] [place] [address] Performed By: #### 5 7021-8 ####[facility]ATORYCLIA [id number] [address] Basophils/100 WBC (Bld) 0.4 % Normal [facility] Comment on above: Order Comment: Speci men Type: BLOOD SPECIMENOrdering Facility: [facility] Address: [address] [place] [address] Performed By: #### 5 7021-8 ####[facility]ORATORYCLIA [id number] [address] Differential cell count method Nom (Bld) Auto Normal [facility] Comment on above: Order Comment: Speci men Type: BLOOD SPECIMENOrdering Facility: [facility] Address: [address] [address] Performed By: #### 5 7021-8 ####[facility]ATORYCLIA [id number] [address] [place] Eosinophils (Bld) [#/Vol] 0.21 10*3/uL Normal <0.46 [facility] Comment on above: Order Comment: Speci men Type: BLOOD SPECIMENOrdering Facility: [facility] Address: [address] [address] Performed By: #### 5 7021-8 ####[facility]ATORYCLIA [id number] [address] Eosinophils/100 WBC (Bld) 1.7 % Normal [facility] Comment on above: Order Comment: Speci men Type: BLOOD SPECIMENOrdering Facility: [facility] Address: [address] [place] [address] Performed By: #### 5 7021-8 ####[facility]ATORYCLIA [id number] [address] Erythrocyte distribution width (RBC) [Ratio] 18.1 % High 11.5-15.0 [facility] Comment on above: Order Comment: Speci men Type: BLOOD SPECIMENOrdering Facility: [facility] Address: [address] [place] [address] Performed By: #### 5 7021-8 ####[facility]ATORYCLIA [id number] [address] Hematocrit (Bld) [Volume fraction] 32.0 % Low 39.0-51.0 [facility] Comment on above: Order Comment: Speci men Type: BLOOD SPECIMENOrdering Facility: [facility] Address: [address] [place] [address] Performed By: #### 5 7021-8 ####[facility]ATORYCLIA [id number] [address] [place] Hemoglobin (Bld) [Mass/Vol] 10.0 g/dL Low 13.0-17.0 [facility] Comment on above: Order Comment: Speci men Type: BLOOD SPECIMENOrdering Facility: [facility] Address: [address] [place] [address] Performed By: #### 5 7021-8 ####[facility]ATORYCLIA [id number] [address] IMMATURE GRAN % 0.6 % Normal [facility] Comment on above: Order Comment: Speci men Type: BLOOD SPECIMENOrdering Facility: [facility] Address: [address] [place] [address] Performed By: #### 5 7021-8 ####[facility]ATORYCLIA [id number] [address] IMMATURE GRAN ABS 0.08 k/uL Normal <0.10 [facility] Comment on above: Order Comment: Speci men Type: BLOOD SPECIMENOrdering Facility: [facility] Address: [address] [place] [address] Performed By: #### 5 7021-8 ####[facility]ATORYCLIA [id number] [address] Lymphocytes (Bld) [#/Vol] 2.55 10*3/uL Normal 1.00-4.00 [facility] Comment on above: Order Comment: Speci men Type: BLOOD SPECIMENOrdering Facility: [facility] Address: [address] [place] [address] Performed By: #### 5 7021-8 ####[facility]ATORYCLIA [id number] [address] Lymphocytes/100 WBC (Bld) 20.5 % Normal [facility] Comment on above: Order Comment: Speci men Type: BLOOD SPECIMENOrdering Facility: [facility] Address: [address] [place] [address] Performed By: #### 5 7021-8 ####[facility]ATORYCLIA [id number] [address] MCH (RBC) [Entitic mass] 28.9 pg Normal 26.0-34.0 [facility] Comment on above: Order Comment: Speci men Type: BLOOD SPECIMENOrdering Facility: [facility] Address: [address] [place] [address] Performed By: #### 5 7021-8 ####[facility]ATORYCLIA [id number] [address] MCHC (RBC) [Mass/Vol] 31.3 g/dL Normal 30.5-36.0 [facility] Comment on above: Order Comment: Speci men Type: BLOOD SPECIMENOrdering Facility: [facility] Address: [address] [place] [address] Performed By: #### 5 7021-8 ####[facility]ATORYCLIA [id number] [address] MCV (RBC) [Entitic vol] 92.5 fL Normal 80.0-100.0 [facility] Comment on above: Order Comment: Speci men Type: BLOOD SPECIMENOrdering Facility: [facility] Address: [address] [place] [address] Performed By: #### 5 7021-8 ####[facility]ATORYCLIA [id number] [address] [place] Monocytes (Bld) [#/Vol] 0.85 10*3/uL Normal <0.87 [facility] Comment on above: Order Comment: Speci men Type: BLOOD SPECIMENOrdering Facility: [facility] Address: [address] [place] [address] Performed By: #### 5 7021-8 ####[facility]ATORYCLIA [id number] [address] STATES [facility] Monocytes/100 WBC (Bld) 6.8 % Normal [facility] Comment on above: Order Comment: Speci men Type: BLOOD SPECIMENOrdering Facility: [facility] Address: [address] [place] [address] Performed By: #### 5 7021-8 ####[facility]ATORYCLIA [id number] [address] [place] Neutrophils (Bld) [#/Vol] 8.68 10*3/uL High 1.45-7.50 [facility] Comment on above: Order Comment: Speci men Type: BLOOD SPECIMENOrdering Facility: [facility] Address: [address] [place] [address] Performed By: #### 5 7021-8 ####[facility] LABORATORYCLIA [id number] [place] [address] [place] Neutrophils/100 WBC (Bld) 70.0 % Normal [facility] Comment on above: Order Comment: Speci men Type: BLOOD SPECIMENOrdering Facility: [facility] Address: [address] [address] Performed By: #### 5 7021-8 ####[facility] LABORATORYCLIA [id number] [address] [place] Nucleated RBC (Bld) [#/Vol] 10*3/uL Normal <0.01 [facility] Comment on above: Order Comment: Speci men Type: BLOOD SPECIMENOrdering Facility: [facility] Address: [address] [place] [address] Performed By: #### 5 7021-8 ####[facility] LABORATORYCLIA [id number] [address] Nucleated RBC/100 WBC (Bld) [Ratio] 0.0 /100 WBC Normal [facility] Comment on above: Order Comment: Speci men Type: BLOOD SPECIMENOrdering Facility: [facility] Address: [address] [place] [address] Performed By: #### 5 7021-8 ####[facility] LABORATORYCLIA [id number] [address] Platelet mean volume (Bld) [Entitic vol] 10.0 fL Normal 9.0-12.7 [facility] Comment on above: Order Comment: Speci men Type: BLOOD SPECIMENOrdering Facility: [facility] Address: [address] Performed By: #### 5 7021-8 ####[facility] LABORATORYCLIA [id number] [address] [place] Platelets (Bld) [#/Vol] 393 10*3/uL Normal 150-400 [facility] Comment on above: Order Comment: Speci men Type: BLOOD SPECIMENOrdering Facility: [facility] Address: [address] [place], [place] [address] Performed By: #### 5 7021-8 ####[facility] LABORATORYCLIA [id number] [place] [address] [place] RBC (Bld) [#/Vol] 3.46 10*6/uL Low 4.20-6.00 [facility] Comment on above: Order Comment: Speci men Type: BLOOD SPECIMENOrdering Facility: [facility] Address: [address] [place] [address] Performed By: #### 5 7021-8 ####[facility] LABORATORYCLIA [id number] [address] [place] WBC (Bld) [#/Vol] 12.42 10*3/uL High 3.70-11.00 [facility] Comment on above: Order Comment: Speci men Type: BLOOD SPECIMENOrdering Facility: [facility] Address: [address] [place] [address] Performed By: #### 5 7021-8 ####[facility] LABORATORYCLIA [id number] [address] [place] CT BRAIN WO IVCONon 08-05-[address] BRAIN WO IVCON Normal [facility] Lactate (Bld) [Moles/Vol]on 08-04-2021 Lactate [Moles/Vol] 1.4 mmol/L Normal 0.5-2.2 [facility] Comment on above: Order Comment: Speci men Type: BLOOD SPECIMENOrdering Facility: [facility] Address: [address] [place] [address] Performed By: #### 3 2693-4 ####[facility] LABORATORYCLIA [id number] [address] PROCALCITONIN (LAB)on 2021 Procalcitonin [Mass/Vol] 0.08 ng/mL Normal <0.09 [facility] Comment on above: Order Comment: Speci men Type: BLOOD SPECIMENOrdering Facility: [facility] Address: [address] [place] [address] Result Comment: For a guided interpretation of test results, please visit the Change in Procalcitonin Calculator, [email or web address]. Performed By: #### P ROCAL ####[facility] LABORATORYCLIA [id number] [address] Prealbumin [Mass/Vol]on 07-07 Prealbumin Nephelometry [Mass/Vol] 35 mg/dL Normal 17-36 [facility] Comment on above: Order Comment: Speci men Type: BLOOD SPECIMENOrdering Facility: [facility] Address: [address] [place] [address] Performed By: #### 1 4338-8 ####[facility] LABORATORYCLIA [id number] [address] [place] SARS-CoV-2 RNA Resp Ql MEGAN+p robeon 08-04-2021 SARS-CoV-2 (COVID-19) RNA MEGAN+probe Ql (Resp) COVID 19 RESULT: SARS-CoV-2 (Agent of COVID-19) Not Detected by RT-PCR or equivalent method. This test has been authorized by FDA under an Emergency Use Authorization (EUA). Normal [facility] Comment on above: Performed By: #### 9 4500-6 ####[facility] LABORATORYCLIA [id number] [address] OF [facility] TYPE AND SCREENon 08-04-2021 ABO O Normal [facility] Comment on above: Order Comment: Speci men Type: BLOOD SPECIMENOrdering Facility: [facility] Address: [address] [place] [address] Performed By: #### T SCR ####[facility] BLOOD BANKCLIA [id number] [address] HISTORICAL AB SCR STATUS Negative Normal [facility] Comment on above: Order Comment: Speci men Type: BLOOD SPECIMENOrdering Facility: [facility] Address: [address] [place] [address] Performed By: #### T SCR ####[facility] BLOOD BANKCLIA [id number] [address] Rh Nom (Bld) Positive Normal [facility] Comment on above: Order Comment: Speci men Type: BLOOD SPECIMENOrdering Facility: [facility] Address: [address] [place] [address] Performed By: #### T SCR ####[facility] BLOOD BANKCLIA [id number] [address] OF [facility] TYPE AND SCREEN EXPIRATION 08/07/2021 23:59 Normal [facility] Comment on above: Order Comment: Speci men Type: BLOOD SPECIMENOrdering Facility: [facility] Address: [address] [place] [address] Performed By: #### T SCR ####[facility] BLOOD BANKCLIA [id number] [address] [place] aPTT PPPon 08-04-2021 aPTT Coag (PPP) [Time] 51.8 s High 23.0-32.4 [facility] Comment on above: Order Comment: Speci men Type: BLOOD SPECIMENOrdering Facility: [facility] Address: [address] [place] [address] Performed By: #### 1 4979-9 ####[facility] LABORATORYCLIA [id number] [address] [place] Basic metabolic 2000 panelon 08-03-2021 Anion gap [Moles/Vol] 9 mmol/L Normal 9-18 [facility] Comment on above: Order Comment: Speci men Type: BLOOD SPECIMENOrdering Facility: [facility] Address: [address] [place] [address] Performed By: #### 2 4321-2, 81408-8, 2777-1 ####[facility] LABORATORYCLIA [id number] [address] STATES [facility] Calcium [Mass/Vol] 9.3 mg/dL Normal 8.5-10.2 [facility] Comment on above: Order Comment: Speci men Type: BLOOD SPECIMENOrdering Facility: [facility] Address: [address] [place], [place] [address] Performed By: #### 2 4321-2, , 2776-05 ####[facility] LABORATORYCLIA [id number] [place] [address] [place] Chloride [Moles/Vol] 97 mmol/L Normal 97-105 [facility] Comment on above: Order Comment: Speci men Type: BLOOD SPECIMENOrdering Facility: [facility] Address: [address] [place] [address] Performed By: #### 2 4321-2, , 2776-05 ####[facility] LABORATORYCLIA [id number] [address] [place] CO2 [Moles/Vol] 27 mmol/L Normal 22-30 [facility] Comment on above: Order Comment: Speci men Type: BLOOD SPECIMENOrdering Facility: [facility] Address: [address] [place] [address] Performed By: #### 2 4321-2, , 2776-05 ####[facility] LABORATORYCLIA [id number] [address] STATES OF [facility] Creatinine [Mass/Vol] 0.63 mg/dL Low 0.73-1.22 [facility] Comment on above: Order Comment: Speci men Type: BLOOD SPECIMENOrdering Facility: [facility] Address: [address] [place] [address] Performed By: #### 2 4321-2, , 2776-05 ####[facility] LABORATORYCLIA [id number] [address] OF [facility] ESTIMATED GLOMERULAR FILTRATION RATE 103 mL/min/1.73m??? Normal >=60 [facility] Comment on above: Order Comment: Speci men Type: BLOOD SPECIMENOrdering Facility: [facility] Address: [address] [place] [address] Result Comment: Luzmaria mated Glomerular Filtration Rate [...] 4321-2, , 2776-05 ####[facility] LABORATORYCLIA [id number] [place] [address] [place] Glucose [Mass/Vol] 136 mg/dL High 74-99 [facility] Comment on above: Order Comment: Shira feldman Type: BLOOD SPECIMENOrdering Facility: [facility] Address: [address] [place] [id number] Result Comment: The [place] [employer] (ADA) provides guidance for cutoff [...] Standards of Medical Care in Diabetes 2016, [place] [employer]. Diabetes Care. 2016.39(Suppl 1). Performed By: #### 2 4321-2, , 2776-05 ####[facility] LABORATORYCLIA [id number] [place] [address] [place] Potassium [Moles/Vol] 4.1 mmol/L Normal 3.7-5.1 [facility] Comment on above: Order Comment: Shira feldman Type: BLOOD SPECIMENOrdering Facility: [facility] Address: [address] [place] [address] Performed By: #### 2 4321-2, , 2776-05 ####[facility] LABORATORYCLIA [id number] [place] [address] [place] Sodium [Moles/Vol] 133 mmol/L Low 136-144 [facility] Comment on above: Order Comment: Speci men Type: BLOOD SPECIMENOrdering Facility: [facility] Address: [address] [place] [address] Performed By: #### 2 4321-2, , 2776-05 ####[facility] LABORATORYCLIA [id number] [address] STATES OF [facility] Urea nitrogen [Mass/Vol] 40 mg/dL High 9-24 [facility] Comment on above: Order Comment: Speci men Type: BLOOD SPECIMENOrdering Facility: [facility] Address: [address] [place] [address] Performed By: #### 2 4321-2, , 2776-05 ####[facility] LABORATORYCLIA [id number] [address] [place] CASE MANAGEMon 08-03-2021 CASE MANAGEM Normal [facility] CBC W Auto Differential pane l (Bld)on 08-03-2021 Basophils (Bld) [#/Vol] 0.06 10*3/uL Normal <0.11 [facility] Comment on above: Order Comment: Speci men Type: BLOOD SPECIMENOrdering Facility: [facility] Address: [address] [place] [address] Performed By: #### 5 7021-8 ####[facility] LABORATORYCLIA [id number] [address] [place] Basophils/100 WBC (Bld) 0.5 % Normal [facility] Comment on above: Order Comment: Speci men Type: BLOOD SPECIMENOrdering Facility: [facility] Address: [address] [place] [address] Performed By: #### 5 7021-8 ####[facility] LABORATORYCLIA [id number] [address] [place] Differential cell count method Nom (Bld) Auto Normal [facility] Comment on above: Order Comment: Speci men Type: BLOOD SPECIMENOrdering Facility: [facility] Address: [address] [place] [address] Performed By: #### 5 7021-8 ####[facility] LABORATORYCLIA [id number] [address] Eosinophils (Bld) [#/Vol] 0.23 10*3/uL Normal <0.46 [facility] Comment on above: Order Comment: Speci men Type: BLOOD SPECIMENOrdering Facility: [facility] Address: [address] [place] [address] Performed By: #### 5 7021-8 ####[facility] LABORATORYCLIA [id number] [address] Eosinophils/100 WBC (Bld) 1.8 % Normal [facility] Comment on above: Order Comment: Speci men Type: BLOOD SPECIMENOrdering Facility: [facility] Address: [address] [place] [address] Performed By: #### 5 7021-8 ####[facility] LABORATORYCLIA [id number] [address] Erythrocyte distribution width (RBC) [Ratio] 17.6 % High 11.5-15.0 [facility] Comment on above: Order Comment: Speci men Type: BLOOD SPECIMENOrdering Facility: [facility] Address: [address] [place] [address] Performed By: #### 5 7021-8 ####[facility] LABORATORYCLIA [id number] [address] Hematocrit (Bld) [Volume fraction] 30.7 % Low 39.0-51.0 [facility] Comment on above: Order Comment: Speci men Type: BLOOD SPECIMENOrdering Facility: [facility] Address: [address] [place] [address] Performed By: #### 5 7021-8 ####[facility] LABORATORYCLIA [id number] [address] Hemoglobin (Bld) [Mass/Vol] 9.3 g/dL Low 13.0-17.0 [facility] Comment on above: Order Comment: Speci men Type: BLOOD SPECIMENOrdering Facility: [facility] Address: [address] [place] [address] Performed By: #### 5 7021-8 ####[facility]ORATORYCLIA [id number] [address] OF [facility] IMMATURE GRAN % 0.6 % Normal [facility] Comment on above: Order Comment: Speci men Type: BLOOD SPECIMENOrdering Facility: [facility] Address: [address] [place] [address] Performed By: #### 5 7021-8 ####[facility]ORATORYCLIA [id number] [address] IMMATURE GRAN ABS 0.08 k/uL Normal <0.10 [facility] Comment on above: Order Comment: Speci men Type: BLOOD SPECIMENOrdering Facility: [facility] Address: [address] [place] [address] Performed By: #### 5 7021-8 ####[facility] LABORATORYCLIA [id number] [place] [address] [place] Lymphocytes (Bld) [#/Vol] 2.45 10*3/uL Normal 1.00-4.00 [facility] Comment on above: Order Comment: Speci men Type: BLOOD SPECIMENOrdering Facility: [facility] Address: [address] [place] [address] Performed By: #### 5 7021-8 ####[facility]ORATORYCLIA [id number] [address] Lymphocytes/100 WBC (Bld) 19.7 % Normal [facility] Comment on above: Order Comment: Speci men Type: BLOOD SPECIMENOrdering Facility: [facility] Address: [address] [place] [address] Performed By: #### 5 7021-8 ####[facility]ORATORYCLIA [id number] [address] MCH (RBC) [Entitic mass] 28.2 pg Normal 26.0-34.0 [facility] Comment on above: Order Comment: Speci men Type: BLOOD SPECIMENOrdering Facility: [facility] Address: [address] [place] [address] Performed By: #### 5 7021-8 ####[facility] LABORATORYCLIA [id number] [address] [place] MCHC (RBC) [Mass/Vol] 30.3 g/dL Low 30.5-36.0 [facility] Comment on above: Order Comment: Speci men Type: BLOOD SPECIMENOrdering Facility: [facility] Address: [address] [place] [address] Performed By: #### 5 7021-8 ####[facility] LABORATORYCLIA [id number] [address] MCV (RBC) [Entitic vol] 93.0 fL Normal 80.0-100.0 [facility] Comment on above: Order Comment: Speci men Type: BLOOD SPECIMENOrdering Facility: [facility] Address: [address] [place] [address] Performed By: #### 5 7021-8 ####[facility] LABORATORYCLIA [id number] [address] Monocytes (Bld) [#/Vol] 0.72 10*3/uL Normal <0.87 [facility] Comment on above: Order Comment: Speci men Type: BLOOD SPECIMENOrdering Facility: [facility] Address: [address] [place] [address] Performed By: #### 5 7021-8 ####[facility] LABORATORYCLIA [id number] [address] Monocytes/100 WBC (Bld) 5.8 % Normal [facility] Comment on above: Order Comment: Speci men Type: BLOOD SPECIMENOrdering Facility: [facility] Address: [address] [place] [address] Performed By: #### 5 7021-8 ####[facility] LABORATORYCLIA [id number] [address] [place] Neutrophils (Bld) [#/Vol] 8.92 10*3/uL High 1.45-7.50 [facility] Comment on above: Order Comment: Speci men Type: BLOOD SPECIMENOrdering Facility: [facility] Address: [address] [place] [address] Performed By: #### 5 7021-8 ####[facility] LABORATORYCLIA [id number] [address] STATES [facility] Neutrophils/100 WBC (Bld) 71.6 % Normal [facility] Comment on above: Order Comment: Speci men Type: BLOOD SPECIMENOrdering Facility: [facility] Address: [address] [place] [address] Performed By: #### 5 7021-8 ####[facility] LABORATORYCLIA [id number] [address] [place] Nucleated RBC (Bld) [#/Vol] 10*3/uL Normal <0.01 [facility] Comment on above: Order Comment: Speci men Type: BLOOD SPECIMENOrdering Facility: [facility] Address: [address] [place] [address] Performed By: #### 5 7021-8 ####[facility] LABORATORYCLIA [id number] [address] [place] Nucleated RBC/100 WBC (Bld) [Ratio] 0.0 /100 WBC Normal [facility] Comment on above: Order Comment: Speci men Type: BLOOD SPECIMENOrdering Facility: [facility] Address: [address] [place] [address] Performed By: #### 5 7021-8 ####[facility] LABORATORYCLIA [id number] [address] [place] Platelet mean volume (Bld) [Entitic vol] 10.2 fL Normal 9.0-12.7 [facility] Comment on above: Order Comment: Speci men Type: BLOOD SPECIMENOrdering Facility: [facility] Address: [address] [place] [address] Performed By: #### 5 7021-8 ####[facility] LABORATORYCLIA [id number] [address] OF [facility] Platelets (Bld) [#/Vol] 352 10*3/uL Normal 150-400 [facility] Comment on above: Order Comment: Speci men Type: BLOOD SPECIMENOrdering Facility: [facility] Address: [address] [place] [address] Performed By: #### 5 7021-8 ####[facility] LABORATORYCLIA [id number] [address] STATES OF [facility] RBC (Bld) [#/Vol] 3.30 10*6/uL Low 4.20-6.00 [facility] Comment on above: Order Comment: Speci men Type: BLOOD SPECIMENOrdering Facility: [facility] Address: [address] [place] [address] Performed By: #### 5 7021-8 ####[facility] LABORATORYCLIA [id number] [address] OF [facility] WBC (Bld) [#/Vol] 12.46 10*3/uL High 3.70-11.00 [facility] Comment on above: Order Comment: Speci men Type: BLOOD SPECIMENOrdering Facility: [facility] Address: [address] [place] [address] Performed By: #### 5 7021-8 ####[facility] LABORATORYCLIA [id number] [address] OF [facility] CONSULT PROGon 08-03-2021 CONSULT PROG Normal [facility] Magnesium SerPl-mCncon 08-03 Magnesium [Mass/Vol] 2.2 mg/dL Normal 1.7-2.3 [facility] Comment on above: Order Comment: Speci men Type: BLOOD SPECIMENOrdering Facility: [facility] Address: [address] [place] [address] Performed By: #### 2 4321-2, 23872-0, 2777-1 ####[facility] LABORATORYCLIA [id number] [address] STATES OF [facility] NURSING PROGon 08-03-2021 NURSING PROG Normal [facility] Phosphate SerPl-mCncon 08-03 Phosphate [Mass/Vol] 4.2 mg/dL Normal 2.7-4.8 [facility] Comment on above: Order Comment: Speci men Type: BLOOD SPECIMENOrdering Facility: [facility] Address: [address] [place] [address] Performed By: #### 2 4321-2, 76142-8, 2777 ####[facility] LABORATORYCLIA [id number] [address] OF [facility] aPTT PPPon 08-03-2021 aPTT Coag (PPP) [Time] 50.0 s High 23.0-32.4 [facility] Comment on above: Order Comment: Speci men Type: BLOOD SPECIMENOrdering Facility: [facility] Address: [address] [place] [address] Performed By: #### 1 4979-9 ####[facility] LABORATORYCLIA [id number] [address] STATES OF [facility] CBC W Auto Differential pane l (Bld)on 08-02-2021 Basophils (Bld) [#/Vol] 10*3/uL Normal <0.11 [facility] Comment on above: Order Comment: Speci men Type: BLOOD SPECIMENOrdering Facility: [facility] Address: [address] [place] [address] Performed By: #### 5 7021-8 ####[facility] LABORATORYCLIA [id number] [address] STATES [facility] Basophils/100 WBC (Bld) 0.2 % Normal [facility] Comment on above: Order Comment: Speci men Type: BLOOD SPECIMENOrdering Facility: [facility] Address: [address] [place] [address] Performed By: #### 5 7021-8 ####[facility] LABORATORYCLIA [id number] [address] Differential cell count method Nom (Bld) Auto Normal [facility] Comment on above: Order Comment: Speci men Type: BLOOD SPECIMENOrdering Facility: [facility] Address: [address] [place] [address] Performed By: #### 5 7021-8 ####[facility] LABORATORYCLIA [id number] [address] STATES OF [facility] Eosinophils (Bld) [#/Vol] 10*3/uL Normal <0.46 [facility] Comment on above: Order Comment: Speci men Type: BLOOD SPECIMENOrdering Facility: [facility] Address: [address] [place] [address] Performed By: #### 5 7021-8 ####[facility] LABORATORYCLIA [id number] [address] Eosinophils/100 WBC (Bld) 0.0 % Normal [facility] Comment on above: Order Comment: Speci men Type: BLOOD SPECIMENOrdering Facility: [facility] Address: [address] [place] [address] Performed By: #### 5 7021-8 ####[facility] LABORATORYCLIA [id number] [address] Erythrocyte distribution width (RBC) [Ratio] 17.3 % High 11.5-15.0 [facility] Comment on above: Order Comment: Speci men Type: BLOOD SPECIMENOrdering Facility: [facility] Address: [address] [place] [address] Performed By: #### 5 7021-8 ####[facility] LABORATORYCLIA [id number] [address] [place] Hematocrit (Bld) [Volume fraction] 30.8 % Low 39.0-51.0 [facility] Comment on above: Order Comment: Speci men Type: BLOOD SPECIMENOrdering Facility: [facility] Address: [address] [place] [address] Performed By: #### 5 7021-8 ####[facility] LABORATORYCLIA [id number] [address] STATES OF [facility] Hemoglobin (Bld) [Mass/Vol] 9.7 g/dL Low 13.0-17.0 [facility] Comment on above: Order Comment: Speci men Type: BLOOD SPECIMENOrdering Facility: [facility] Address: [address] [place] [address] Performed By: #### 5 7021-8 ####[facility] LABORATORYCLIA [id number] [address] IMMATURE GRAN % 0.5 % Normal [facility] Comment on above: Order Comment: Speci men Type: BLOOD SPECIMENOrdering Facility: [facility] Address: [address] [place] [address] Performed By: #### 5 7021-8 ####[facility] LABORATORYCLIA [id number] IMMATURE GRAN ABS 0.07 k/uL Normal <0.10 [facility] Comment on above: Order Comment: Speci men Type: BLOOD SPECIMENOrdering Facility: [facility] Address: [address] [place] [address] Performed By: #### 5 7021-8 ####[facility] LABORATORYCLIA [id number] [facility] Lymphocytes (Bld) [#/Vol] 1.60 10*3/uL Normal 1.00-4.00 [facility] Comment on above: Order Comment: Speci men Type: BLOOD SPECIMENOrdering Facility: [facility] Address: [address] [place] [address] Performed By: #### 5 7021-8 ####[facility] LABORATORYCLIA [id number] [address] Lymphocytes/100 WBC (Bld) 12.1 % Normal [facility] Comment on above: Order Comment: Speci men Type: BLOOD SPECIMENOrdering Facility: [facility] Address: [address] [place] [address] Performed By: #### 5 7021-8 ####[facility] LABORATORYCLIA [id number] [address] MCH (RBC) [Entitic mass] 28.6 pg Normal 26.0-34.0 [facility] Comment on above: Order Comment: Speci men Type: BLOOD SPECIMENOrdering Facility: [facility] Address: [address] [place] [address] Performed By: #### 5 7021-8 ####[facility] LABORATORYCLIA [id number] [address] MCHC (RBC) [Mass/Vol] 31.5 g/dL Normal 30.5-36.0 [facility] Comment on above: Order Comment: Speci men Type: BLOOD SPECIMENOrdering Facility: [facility] Address: [address] [place] [address] Performed By: #### 5 7021-8 ####[facility] LABORATORYCLIA [id number] [address] MCV (RBC) [Entitic vol] 90.9 fL Normal 80.0-100.0 [facility] Comment on above: Order Comment: Speci men Type: BLOOD SPECIMENOrdering Facility: [facility] Address: [address] [place] [address] Performed By: #### 5 7021-8 ####[facility] LABORATORYCLIA [id number] [address] Monocytes (Bld) [#/Vol] 0.39 10*3/uL Normal <0.87 [facility] Comment on above: Order Comment: Speci men Type: BLOOD SPECIMENOrdering Facility: [facility] Address: [address] [place] [address] Performed By: #### 5 7021-8 ####[facility]ORATORYCLIA [id number] [address] [place] Monocytes/100 WBC (Bld) 3.0 % Normal [facility] Comment on above: Order Comment: Speci men Type: BLOOD SPECIMENOrdering Facility: [facility] Address: [address] [place] [address] Performed By: #### 5 7021-8 ####[facility] LABORATORYCLIA [id number] [place] [address] [place] Neutrophils (Bld) [#/Vol] 11.09 10*3/uL High 1.45-7.50 [facility] Comment on above: Order Comment: Speci men Type: BLOOD SPECIMENOrdering Facility: [facility] Address: [address] [place] [address] Performed By: #### 5 7021-8 ####[facility] LABORATORYCLIA [id number] [address] Neutrophils/100 WBC (Bld) 84.2 % Normal [facility] Comment on above: Order Comment: Speci men Type: BLOOD SPECIMENOrdering Facility: [facility] Address: [address] [place] [address] Performed By: #### 5 7021-8 ####[facility] LABORATORYCLIA [id number] [address] [place] Nucleated RBC (Bld) [#/Vol] 10*3/uL Normal <0.01 [facility] Comment on above: Order Comment: Speci men Type: BLOOD SPECIMENOrdering Facility: [facility] Address: [address] [place] [address] Performed By: #### 5 7021-8 ####[facility] LABORATORYCLIA [id number] [address] [place] Nucleated RBC/100 WBC (Bld) [Ratio] 0.0 /100 WBC Normal [facility] Comment on above: Order Comment: Speci men Type: BLOOD SPECIMENOrdering Facility: [facility] Address: [address] [place], [place] [address] Performed By: #### 5 7021-8 ####[facility] LABORATORYCLIA [id number] [address] Platelet mean volume (Bld) [Entitic vol] 10.0 fL Normal 9.0-12.7 [facility] Comment on above: Order Comment: Speci men Type: BLOOD SPECIMENOrdering Facility: [facility] Address: [address] [place], [place] [address] Performed By: #### 5 7021-8 ####[facility] LABORATORYCLIA [id number] [address] [place] Platelets (Bld) [#/Vol] 358 10*3/uL Normal 150-400 [facility] Comment on above: Order Comment: Speci men Type: BLOOD SPECIMENOrdering Facility: [facility] Address: [address] [place] [address] Performed By: #### 5 7021-8 ####[facility] LABORATORYCLIA [id number] [address] [place] RBC (Bld) [#/Vol] 3.39 10*6/uL Low 4.20-6.00 [facility] Comment on above: Order Comment: Speci men Type: BLOOD SPECIMENOrdering Facility: [facility] Address: [address] [place], [place] [address] Performed By: #### 5 7021-8 ####[facility] LABORATORYCLIA [id number] [address] [place] WBC (Bld) [#/Vol] 13.17 10*3/uL High 3.70-11.00 [facility] Comment on above: Order Comment: Speci men Type: BLOOD SPECIMENOrdering Facility: [facility] Address: [address] [place] [address] Performed By: #### 5 7021-8 ####[facility] LABORATORYCLIA [id number] [address] [place] NURSING PROGon 08-02-2021 NURSING PROG Normal [facility] THERAPY NTon 08-02-2021 THERAPY NT Normal [facility] aPTT PPPon 08-02-2021 aPTT Coag (PPP) [Time] 54.9 s High 23.0-32.4 [facility] Comment on above: Order Comment: Speci men Type: BLOOD SPECIMENOrdering Facility: [facility] Address: [address] [place] [address] Performed By: #### 1 4979-9 ####[facility] LABORATORYCLIA [id number] [address] OF [facility] ALLIED HEALTHon 08-01-2021 ALLIED HEALTH Normal [facility] ALLIED HEALTH Normal [facility] Basic metabolic 2000 panelon 08-01-2021 Anion gap [Moles/Vol] 12 mmol/L Normal 9-18 [facility] Comment on above: Order Comment: Speci men Type: BLOOD SPECIMENOrdering Facility: [facility] Address: [address] [place] [address] Performed By: #### 2 4321-2, 19427-4, 76203-1, 2777-1 ####[facility] LABORATORYCLIA [id number] [place] [address] [place] Calcium [Mass/Vol] 9.1 mg/dL Normal 8.5-10.2 [facility] Comment on above: Order Comment: Speci men Type: BLOOD SPECIMENOrdering Facility: [facility] Address: [address] [place] [address] Performed By: #### 2 4321-2, 87894-0, 64318-8, 2777-1 ####[facility] LABORATORYCLIA [id number] [place] [address] [place] Chloride [Moles/Vol] 96 mmol/L Low 97-105 [facility] Comment on above: Order Comment: Speci men Type: BLOOD SPECIMENOrdering Facility: [facility] Address: [address] [place] [address] Performed By: #### 2 4321-2, 70627-3, 01939-1, 2777-1 ####[facility]ITALCLIA [id number] [address] STATES OF [facility] CO2 [Moles/Vol] 27 mmol/L Normal 22-30 [facility] Comment on above: Order Comment: Speci men Type: BLOOD SPECIMENOrdering Facility: [facility] Address: [address] [place] [address] Performed By: #### 2 4321-2, 70686-0, 80535-7, 2777-1 ####[facility]PITALIA [id number] [address] OF [facility] Creatinine [Mass/Vol] 0.64 mg/dL Low 0.73-1.22 [facility] Comment on above: Order Comment: Speci men Type: BLOOD SPECIMENOrdering Facility: [facility] Address: [address] [place] [address] Performed By: #### 2 4321-2, 37839-5, 85579-5, 277- ####[facility] HOSPITALIA [id number] [address] OF [facility] ESTIMATED GLOMERULAR FILTRATION RATE 102 mL/min/1.73m??? Normal >=60 [facility] Comment on above: Order Comment: Speci men Type: BLOOD SPECIMENOrdering Facility: [facility] Address: [address] [place] [address] Result Comment: Luzmaria mated Glomerular Filtration Rate [...] actual GFR. Performed By: #### 2 4321-2, 06772-5, 89803-8, 2777-1 ####[facility] LABORATORYCLIA [id number] [place] [address] [place] Glucose [Mass/Vol] 122 mg/dL High 74-99 [facility] Comment on above: Order Comment: Shira feldman Type: BLOOD SPECIMENOrdering Facility: [facility] Address: [address] [place], [place] [address] Result Comment: The [place] [employer] (ADA) provides guidance for cutoff [...] Standards of Medical Care in Diabetes 2016, [place] [employer]. Diabetes Care. 2016.39(Suppl 1). Performed By: #### 2 4321-2, 14402-1, 25152-0, 2777-1 ####[facility] LABORATORYCLIA [id number] [place] [address] [place] Potassium [Moles/Vol] 4.2 mmol/L Normal 3.7-5.1 [facility] Comment on above: Order Comment: Shira feldman Type: BLOOD SPECIMENOrdering Facility: [facility] Address: [address] [place], [place] [address] Performed By: #### 2 4321-2, 07270-9, 49658-8, 2777-1 ####[facility] LABORATORYCLIA [id number] [place] [address] [place] Sodium [Moles/Vol] 135 mmol/L Low 136-144 [facility] Comment on above: Order Comment: Shira feldman Type: BLOOD SPECIMENOrdering Facility: [facility] Address: [address] [id number] Performed By: #### 2 4321-2, 95448-1, 91808-7, 2777-1 ####[facility] LABORATORYCLIA [id number] [place] [address] [place] Urea nitrogen [Mass/Vol] 36 mg/dL High 9-24 [facility] Comment on above: Order Comment: Speci men Type: BLOOD SPECIMENOrdering Facility: [facility] Address: [address] [place] [address] Performed By: #### 2 4321-2, 39714-1, 72714-8, 2777-1 ####[facility] LABORATORYCLIA [id number] [address] [place] CASE MANAGEMon 08-01-2021 CASE MANAGEM Normal [facility] CBC W Auto Differential pane l (Bld)on 08-01-2021 Basophils (Bld) [#/Vol] 0.04 10*3/uL Normal <0.11 [facility] Comment on above: Order Comment: Speci men Type: BLOOD SPECIMENOrdering Facility: [facility] Address: [address] [place] [address] Performed By: #### 5 7021-8 ####[facility] LABORATORYCLIA [id number] [address] [place] Basophils/100 WBC (Bld) 0.3 % Normal [facility] Comment on above: Order Comment: Speci men Type: BLOOD SPECIMENOrdering Facility: [facility] Address: [address] [place] [address] Performed By: #### 5 7021-8 ####[facility] LABORATORYCLIA [id number] [address] [place] Differential cell count method Nom (Bld) Auto Normal [facility] Comment on above: Order Comment: Speci men Type: BLOOD SPECIMENOrdering Facility: [facility] Address: [address] [place] [address] Performed By: #### 5 7021-8 ####[facility] LABORATORYCLIA [id number] [place] [address] [place] Eosinophils (Bld) [#/Vol] 0.37 10*3/uL Normal <0.46 [facility] Comment on above: Order Comment: Speci men Type: BLOOD SPECIMENOrdering Facility: [facility] Address: [address] [place] [address] Performed By: #### 5 7021-8 ####[facility] LABORATORYCLIA [id number] [address] Eosinophils/100 WBC (Bld) 3.1 % Normal [facility] Comment on above: Order Comment: Speci men Type: BLOOD SPECIMENOrdering Facility: [facility] Address: [address] [place] [address] Performed By: #### 5 7021-8 ####[facility] LABORATORYCLIA [id number] [address] [place] Erythrocyte distribution width (RBC) [Ratio] 17.5 % High 11.5-15.0 [facility] Comment on above: Order Comment: Speci men Type: BLOOD SPECIMENOrdering Facility: [facility] Address: [address] [place] [address] Performed By: #### 5 7021-8 ####[facility] LABORATORYCLIA [id number] [address] [place] Hematocrit (Bld) [Volume fraction] 30.1 % Low 39.0-51.0 [facility] Comment on above: Order Comment: Speci men Type: BLOOD SPECIMENOrdering Facility: [facility] Address: [address] [place] [address] Performed By: #### 5 7021-8 ####[facility] LABORATORYCLIA [id number] [address] [place] Hemoglobin (Bld) [Mass/Vol] 9.1 g/dL Low 13.0-17.0 [facility] Comment on above: Order Comment: Speci men Type: BLOOD SPECIMENOrdering Facility: [facility] Address: [address] [place] [address] Performed By: #### 5 7021-8 ####[facility] LABORATORYCLIA [id number] [address] IMMATURE GRAN % 0.6 % Normal [facility] Comment on above: Order Comment: Speci men Type: BLOOD SPECIMENOrdering Facility: [facility] Address: [address] [place] [address] Performed By: #### 5 7021-8 ####[facility] LABORATORYCLIA [id number] [address] IMMATURE GRAN ABS 0.07 k/uL Normal <0.10 [facility] Comment on above: Order Comment: Speci men Type: BLOOD SPECIMENOrdering Facility: [facility] Address: [address] [place] [address] Performed By: #### 5 7021-8 ####[facility] LABORATORYCLIA [id number] [address] [place] Lymphocytes (Bld) [#/Vol] 2.05 10*3/uL Normal 1.00-4.00 [facility] Comment on above: Order Comment: Speci men Type: BLOOD SPECIMENOrdering Facility: [facility] Address: [address] [place] [address] Performed By: #### 5 7021-8 ####[facility] LABORATORYCLIA [id number] [address] Lymphocytes/100 WBC (Bld) 17.1 % Normal [facility] Comment on above: Order Comment: Speci men Type: BLOOD SPECIMENOrdering Facility: [facility] Address: [address] [place] [address] Performed By: #### 5 7021-8 ####[facility] LABORATORYCLIA [id number] [address] [place] MCH (RBC) [Entitic mass] 27.7 pg Normal 26.0-34.0 [facility] Comment on above: Order Comment: Speci men Type: BLOOD SPECIMENOrdering Facility: [facility] Address: [address] [place] [address] Performed By: #### 5 7021-8 ####[facility] LABORATORYCLIA [id number] [address] STATES [facility] MCHC (RBC) [Mass/Vol] 30.2 g/dL Low 30.5-36.0 [facility] Comment on above: Order Comment: Speci men Type: BLOOD SPECIMENOrdering Facility: [facility] Address: [address] [place] [address] Performed By: #### 5 7021-8 ####[facility] LABORATORYCLIA [id number] [address] MCV (RBC) [Entitic vol] 91.5 fL Normal 80.0-100.0 [facility] Comment on above: Order Comment: Speci men Type: BLOOD SPECIMENOrdering Facility: [facility] Address: [address] [place] [address] Performed By: #### 5 7021-8 ####[facility] LABORATORYCLIA [id number] [address] Monocytes (Bld) [#/Vol] 0.53 10*3/uL Normal <0.87 [facility] Comment on above: Order Comment: Speci men Type: BLOOD SPECIMENOrdering Facility: [facility] Address: [address] [place] [address] Performed By: #### 5 7021-8 ####[facility] LABORATORYCLIA [id number] [address] Monocytes/100 WBC (Bld) 4.4 % Normal [facility] Comment on above: Order Comment: Speci men Type: BLOOD SPECIMENOrdering Facility: [facility] Address: [address] [place] [address] Performed By: #### 5 7021-8 ####[facility] LABORATORYCLIA [id number] [address] [place] Neutrophils (Bld) [#/Vol] 8.91 10*3/uL High 1.45-7.50 [facility] Comment on above: Order Comment: Speci men Type: BLOOD SPECIMENOrdering Facility: [facility] Address: [address] [address] Performed By: #### 5 7021-8 ####[facility] LABORATORYCLIA [id number] [address] Neutrophils/100 WBC (Bld) 74.5 % Normal [facility] Comment on above: Order Comment: Speci men Type: BLOOD SPECIMENOrdering Facility: [facility] Address: [address] [place] [address] Performed By: #### 5 7021-8 ####[facility] LABORATORYCLIA [id number] [address] Nucleated RBC (Bld) [#/Vol] 10*3/uL Normal <0.01 [facility] Comment on above: Order Comment: Speci men Type: BLOOD SPECIMENOrdering Facility: [facility] Address: [address] [place] [address] Performed By: #### 5 7021-8 ####[facility] LABORATORYCLIA [id number] [address] Nucleated RBC/100 WBC (Bld) [Ratio] 0.0 /100 WBC Normal [facility] Comment on above: Order Comment: Speci men Type: BLOOD SPECIMENOrdering Facility: [facility] Address: [address] [place] [address] Performed By: #### 5 7021-8 ####[facility] LABORATORYCLIA [id number] [address] Platelet mean volume (Bld) [Entitic vol] 10.4 fL Normal 9.0-12.7 [facility] Comment on above: Order Comment: Speci men Type: BLOOD SPECIMENOrdering Facility: [facility] Address: [address] [place] [address] Performed By: #### 5 7021-8 ####[facility] LABORATORYCLIA [id number] [address] Platelets (Bld) [#/Vol] 319 10*3/uL Normal 150-400 [facility] Comment on above: Order Comment: Speci men Type: BLOOD SPECIMENOrdering Facility: [facility] Address: [address] [place] [address] Performed By: #### 5 7021-8 ####[facility] LABORATORYCLIA [id number] [address] OF [facility] RBC (Bld) [#/Vol] 3.29 10*6/uL Low 4.20-6.00 [facility] Comment on above: Order Comment: Speci men Type: BLOOD SPECIMENOrdering Facility: [facility] Address: [address] [place] [address] Performed By: #### 5 7021-8 ####[facility] LABORATORYCLIA [id number] [address] WBC (Bld) [#/Vol] 11.97 10*3/uL High 3.70-11.00 [facility] Comment on above: Order Comment: Speci men Type: BLOOD SPECIMENOrdering Facility: [facility] Address: [address] [place] [address] Performed By: #### 5 7021-8 ####[facility] LABORATORYCLIA [id number] [address] BRAIN WO IVCONon 08-02-19 CT BRAIN WO IVCON Normal [facility] Magnesium SerPl-mCncon 08-01 Magnesium [Mass/Vol] 2.4 mg/dL High 1.7-2.3 [facility] Comment on above: Order Comment: Speci men Type: BLOOD SPECIMENOrdering Facility: [facility] Address: [address] [place] [address] Performed By: #### 2 4321-2, 41292-9, 09116-3, 2777-1 ####[facility] LABORATORYCLIA [id number] [address] NURSING PROGon 08-01-2021 NURSING PROG Normal [facility] NUTRITIONon 08-01-2021 NUTRITION Normal [facility] Phosphate SerPl-mCncon 08-01 Phosphate [Mass/Vol] 3.3 mg/dL Normal 2.7-4.8 [facility] Comment on above: Order Comment: Speci men Type: BLOOD SPECIMENOrdering Facility: [facility] Address: [address] [place] [address] Performed By: #### 2 4321-2, 67689-6, 35789-1, 2777-1 ####[facility] LABORATORYCLIA [id number] [address] Prealbumin [Mass/Vol]on 07-06 Prealbumin Nephelometry [Mass/Vol] 30 mg/dL Normal 17-36 [facility] Comment on above: Order Comment: Speci men Type: BLOOD SPECIMENOrdering Facility: [facility] Address: [address] [place] [address] Performed By: #### 2 4321-2, 09856-2, 42220-4, 2777-1 ####[facility] LABORATORYCLIA [id number] [address] THERAPY NTon 08-01-2021 THERAPY NT Normal [facility] THERAPY NT Normal [facility] TYPE AND SCREENon 08-01-2021 ABO O Normal [facility] Comment on above: Order Comment: Speci men Type: BLOOD SPECIMENOrdering Facility: [facility] Address: [address] [place] [address] Performed By: #### T SCR ####[facility] BLOOD BANKCLIA [id number] [address] HISTORICAL AB SCR STATUS Negative Normal [facility] Comment on above: Order Comment: Speci men Type: BLOOD SPECIMENOrdering Facility: [facility] Address: [address] [place] [address] Performed By: #### T SCR ####[facility] BLO[facility] BANKCLIA [id number] [address] Rh Nom (Bld) Positive Normal [facility] Comment on above: Order Comment: Speci men Type: BLOOD SPECIMENOrdering Facility: [facility] Address: [address] [place] [address] Performed By: #### T SCR ####[facility] BLO[facility] BANKCLIA [id number] [address] TYPE AND SCREEN EXPIRATION 08/04/2021 23:59 Normal [facility] Comment on above: Order Comment: Speci men Type: BLOOD SPECIMENOrdering Facility: [facility] Address: [address] [place] [address] Performed By: #### T SCR ####[facility] BLOOD BANKCLIA [id number] [address] XR CHEST 1V FRONTALon 2021 XR CHEST 1V FRONTAL Normal [facility] aPTT PPPon 08-01-2021 aPTT Coag (PPP) [Time] 50.9 s High 23.0-32.4 [facility] Comment on above: Order Comment: Speci men Type: BLOOD SPECIMENOrdering Facility: [facility] Address: [address] [place] [address] Performed By: #### 1 4979-9 ####[facility] LABORATORYCLIA [id number] [address] CBC W Auto Differential pane l (Bld)on 07-31-2021 Basophils (Bld) [#/Vol] 0.05 10*3/uL Normal <0.11 [facility] Comment on above: Order Comment: Speci men Type: BLOOD SPECIMENOrdering Facility: [facility] Address: [address] [place] [address] Performed By: #### 5 7021-8 ####[facility] LABORATORYCLIA [id number] [address] Basophils/100 WBC (Bld) 0.4 % Normal [facility] Comment on above: Order Comment: Speci men Type: BLOOD SPECIMENOrdering Facility: [facility] Address: [address] [place] [address] Performed By: #### 5 7021-8 ####[facility] LABORATORYCLIA [id number] [address] Differential cell count method Nom (Bld) Auto Normal [facility] Comment on above: Order Comment: Speci men Type: BLOOD SPECIMENOrdering Facility: [facility] Address: [address] [place] [address] Performed By: #### 5 7021-8 ####[facility] LABORATORYCLIA [id number] [address] STATES OF [facility] Eosinophils (Bld) [#/Vol] 0.51 10*3/uL High <0.46 [facility] Comment on above: Order Comment: Speci men Type: BLOOD SPECIMENOrdering Facility: [facility] Address: [address] [place] [address] Performed By: #### 5 7021-8 ####[facility] LABORATORYCLIA [id number] [address] Eosinophils/100 WBC (Bld) 4.5 % Normal [facility] Comment on above: Order Comment: Speci men Type: BLOOD SPECIMENOrdering Facility: [facility] Address: [address] [place] [address] Performed By: #### 5 7021-8 ####[facility] LABORATORYCLIA [id number] [address] Erythrocyte distribution width (RBC) [Ratio] 17.5 % High 11.5-15.0 [facility] Comment on above: Order Comment: Speci men Type: BLOOD SPECIMENOrdering Facility: [facility] Address: [address] [place] [address] Performed By: #### 5 7021-8 ####[facility] LABORATORYCLIA [id number] [place] [address] [place] Hematocrit (Bld) [Volume fraction] 30.4 % Low 39.0-51.0 [facility] Comment on above: Order Comment: Speci men Type: BLOOD SPECIMENOrdering Facility: [facility] Address: [address] [place] [address] Performed By: #### 5 7021-8 ####[facility] LABORATORYCLIA [id number] [address] STATES OF [facility] Hemoglobin (Bld) [Mass/Vol] 9.2 g/dL Low 13.0-17.0 [facility] Comment on above: Order Comment: Speci men Type: BLOOD SPECIMENOrdering Facility: [facility] Address: [address] [place] [address] Performed By: #### 5 7021-8 ####[facility] LABORATORYCLIA [id number] [address] IMMATURE GRAN % 0.5 % Normal [facility] Comment on above: Order Comment: Speci men Type: BLOOD SPECIMENOrdering Facility: [facility] Address: [address] [place] [address] Performed By: #### 5 7021-8 ####[facility] LABORATORYCLIA [id number] [address] IMMATURE GRAN ABS 0.06 k/uL Normal <0.10 [facility] Comment on above: Order Comment: Speci men Type: BLOOD SPECIMENOrdering Facility: [facility] Address: [address] [place] [address] Performed By: #### 5 7021-8 ####[facility] LABORATORYCLIA [id number] [address] [place] Lymphocytes (Bld) [#/Vol] 1.99 10*3/uL Normal 1.00-4.00 [facility] Comment on above: Order Comment: Speci men Type: BLOOD SPECIMENOrdering Facility: [facility] Address: [address] [place] [address] Performed By: #### 5 7021-8 ####[facility] LABORATORYCLIA [id number] [address] Lymphocytes/100 WBC (Bld) 17.6 % Normal [facility] Comment on above: Order Comment: Speci men Type: BLOOD SPECIMENOrdering Facility: [facility] Address: [address] [place] [address] Performed By: #### 5 7021-8 ####[facility] LABORATORYCLIA [id number] [address] MCH (RBC) [Entitic mass] 28.4 pg Normal 26.0-34.0 [facility] Comment on above: Order Comment: Speci men Type: BLOOD SPECIMENOrdering Facility: [facility] Address: [address] [place] [address] Performed By: #### 5 7021-8 ####[facility] LABORATORYCLIA [id number] [address] MCHC (RBC) [Mass/Vol] 30.3 g/dL Low 30.5-36.0 [facility] Comment on above: Order Comment: Speci men Type: BLOOD SPECIMENOrdering Facility: [facility] Address: [address] [place] [address] Performed By: #### 5 7021-8 ####[facility]ORATORYCLIA [id number] [address] STATES [facility] MCV (RBC) [Entitic vol] 93.8 fL Normal 80.0-100.0 [facility] Comment on above: Order Comment: Speci men Type: BLOOD SPECIMENOrdering Facility: [facility] Address: [address] [place] [address] Performed By: #### 5 7021-8 ####[facility] LABORATORYCLIA [id number] [address] Monocytes (Bld) [#/Vol] 0.57 10*3/uL Normal <0.87 [facility] Comment on above: Order Comment: Speci men Type: BLOOD SPECIMENOrdering Facility: [facility] Address: [address] [place] [address] Performed By: #### 5 7021-8 ####[facility]ORATORYCLIA [id number] [address] [place] Monocytes/100 WBC (Bld) 5.0 % Normal [facility] Comment on above: Order Comment: Speci men Type: BLOOD SPECIMENOrdering Facility: [facility] Address: [address] [place] [address] Performed By: #### 5 7021-8 ####[facility]ORATORYCLIA [id number] [address] [place] Neutrophils (Bld) [#/Vol] 8.12 10*3/uL High 1.45-7.50 [facility] Comment on above: Order Comment: Speci men Type: BLOOD SPECIMENOrdering Facility: [facility] Address: [address] [place] [address] Performed By: #### 5 7021-8 ####[facility]ATORYCLIA [id number] [address] [place] Neutrophils/100 WBC (Bld) 72.0 % Normal [facility] Comment on above: Order Comment: Speci men Type: BLOOD SPECIMENOrdering Facility: [facility] Address: [address] [place] [address] Performed By: #### 5 7021-8 ####[facility]ORATORYCLIA [id number] [address] [place] Nucleated RBC (Bld) [#/Vol] 10*3/uL Normal <0.01 [facility] Comment on above: Order Comment: Speci men Type: BLOOD SPECIMENOrdering Facility: [facility] Address: [address] [place] [address] Performed By: #### 5 7021-8 ####[facility]ORATORYCLIA [id number] [address] [place] Nucleated RBC/100 WBC (Bld) [Ratio] 0.0 /100 WBC Normal [facility] Comment on above: Order Comment: Speci men Type: BLOOD SPECIMENOrdering Facility: [facility] Address: [address] [place], [place] [address] Performed By: #### 5 7021-8 ####[facility]ORATORYCLIA [id number] [address] [place] Platelet mean volume (Bld) [Entitic vol] 10.9 fL Normal 9.0-12.7 [facility] Comment on above: Order Comment: Speci men Type: BLOOD SPECIMENOrdering Facility: [facility] Address: [address] [place] [address] Performed By: #### 5 7021-8 ####[facility]ORATORYCLIA [id number] [address] [place] Platelets (Bld) [#/Vol] 303 10*3/uL Normal 150-400 [facility] Comment on above: Order Comment: Speci men Type: BLOOD SPECIMENOrdering Facility: [facility] Address: [address] [place] [address] Performed By: #### 5 7021-8 ####[facility]ORATORYCLIA [id number] [address] [place] RBC (Bld) [#/Vol] 3.24 10*6/uL Low 4.20-6.00 [facility] Comment on above: Order Comment: Speci men Type: BLOOD SPECIMENOrdering Facility: [facility] Address: [address] [place], [place] [address] Performed By: #### 5 7021-8 ####[facility] LABORATORYCLIA [id number] [address] [place] WBC (Bld) [#/Vol] 11.30 10*3/uL High 3.70-11.00 [facility] Comment on above: Order Comment: Speci men Type: BLOOD SPECIMENOrdering Facility: [facility] Address: [address] [place], [place] [address] Performed By: #### 5 7021-8 ####[facility]ORATORYCLIA [id number] [address] NURSING PROGon 07-31-2021 NURSING PROG Normal [facility] aPTT PPPon 07-31-2021 aPTT Coag (PPP) [Time] 64.9 s High 23.0-32.4 [facility] Comment on above: Order Comment: Speci men Type: BLOOD SPECIMENOrdering Facility: [facility] Address: [address] [place] [address] Performed By: #### 1 4979-9 ####[facility] LABORATORYCLIA [id number] [address] ALLIED HEALTHon 07-30-2021 ALLIED HEALTH Normal [facility] Bacteria CSF Culton 07-31-19 22 Bacteria identified Cx Nom (CSF) CULTURE, CSF: No growth 14 days GRAM STAIN: No organisms seen Few Mononuclear cells Rare Polymorphonuclear leukocytes Gram stain performed on cytospun specimen. Normal [facility] Comment on above: Performed By: #### 6 06-4 ####[facility] LABORATORYCLIA [id number] [address] [place] Basic metabolic 2000 panelon 07-30-2021 Anion gap [Moles/Vol] 9 mmol/L Normal 9-18 [facility] Comment on above: Order Comment: Speci men Type: BLOOD SPECIMENOrdering Facility: [facility] Address: [address] [place] [address] Performed By: #### 2 777-1, 83444-8, ####[facility]ORATORYCLIA [id number] [address] STATES [facility] Calcium [Mass/Vol] 8.9 mg/dL Normal 8.5-10.2 [facility] Comment on above: Order Comment: Speci men Type: BLOOD SPECIMENOrdering Facility: [facility] Address: [address] [place] [address] Performed By: #### 2 777-1, 30001-0, ####[facility]ORATORYCLIA [id number] [place] [address] [place] Chloride [Moles/Vol] 95 mmol/L Low 97-105 [facility] Comment on above: Order Comment: Speci men Type: BLOOD SPECIMENOrdering Facility: [facility] Address: [address] [place] [address] Performed By: #### 2 777-1, , ####[facility]ITALCL[facility] [id number] [address] STATES OF [facility] CO2 [Moles/Vol] 28 mmol/L Normal 22-30 [facility] Comment on above: Order Comment: Speci men Type: BLOOD SPECIMENOrdering Facility: [facility] Address: [address] [place] [address] Performed By: #### 2 777-1, , ####[facility]ITALCLIA [id number] [address] Creatinine [Mass/Vol] 0.67 mg/dL Low 0.73-1.22 [facility] Comment on above: Order Comment: Speci men Type: BLOOD SPECIMENOrdering Facility: [facility] Address: [address] [place] [address] Performed By: #### 2 777-1, , ####[facility]ITALCLIA [id number] [address] ESTIMATED GLOMERULAR FILTRATION RATE 101 mL/min/1.73m??? Normal >=60 [facility] Comment on above: Order Comment: Speci men Type: BLOOD SPECIMENOrdering Facility: [facility] Address: [address] [place] [address] Result Comment: Luzmaria mated Glomerular Filtration Rate [...] actual GFR. Performed By: #### 2 777-1, 76490-5, ####[facility]ORATORYCLIA [id number] [place] [address] [place] Glucose [Mass/Vol] 125 mg/dL High 74-99 [facility] Comment on above: Order Comment: Shira feldman Type: BLOOD SPECIMENOrdering Facility: [facility] Address: [address] [place], [place] [address] Result Comment: The [place] [employer] (ADA) provides guidance for cutoff [...] Standards of Medical Care in Diabetes 2016, [place] [employer]. Diabetes Care. 2016.39(Suppl 1). Performed By: #### 2 777-1, , ####[facility]ORATORYCLIA [id number] [place] [address] [place] Potassium [Moles/Vol] 3.9 mmol/L Normal 3.7-5.1 [facility] Comment on above: Order Comment: Shira feldman Type: BLOOD SPECIMENOrdering Facility: [facility] Address: [address] [place] [address] Performed By: #### 2 777-1, 73557-8, ####[facility]ORATORYCLIA [id number] [place] [address] [place] Sodium [Moles/Vol] 132 mmol/L Low 136-144 [facility] Comment on above: Order Comment: Shira feldman Type: BLOOD SPECIMENOrdering Facility: [facility] Address: [address] [place] [address] Performed By: #### 2 777-1, 98783-7, 50336-4 ####[facility]ORATORYCLIA [id number] [address] STATES [facility] Urea nitrogen [Mass/Vol] 38 mg/dL High 9-24 [facility] Comment on above: Order Comment: Speci men Type: BLOOD SPECIMENOrdering Facility: [facility] Address: [address] [place] [address] Performed By: #### 2 777-1, 96047-8, ####[facility]ORATORYCLIA [id number] [address] [place] CBC W Auto Differential pane l (Bld)on 07-30-2021 Basophils (Bld) [#/Vol] 0.04 10*3/uL Normal <0.11 [facility] Comment on above: Order Comment: Speci men Type: BLOOD SPECIMENOrdering Facility: [facility] Address: [address] [place] [address] Performed By: #### 5 7021-8 ####[facility]ORATORYCLIA [id number] [address] [place] Basophils/100 WBC (Bld) 0.4 % Normal [facility] Comment on above: Order Comment: Speci men Type: BLOOD SPECIMENOrdering Facility: [facility] Address: [address] [place] [address] Performed By: #### 5 7021-8 ####[facility]ORATORYCLIA [id number] [address] STATES [facility] Differential cell count method Nom (Bld) Auto Normal [facility] Comment on above: Order Comment: Speci men Type: BLOOD SPECIMENOrdering Facility: [facility] Address: [address] [place] [address] Performed By: #### 5 7021-8 ####[facility]ORATORYCLIA [id number] [address] [place] Eosinophils (Bld) [#/Vol] 0.30 10*3/uL Normal <0.46 [facility] Comment on above: Order Comment: Speci men Type: BLOOD SPECIMENOrdering Facility: [facility] Address: [address] [address] Performed By: #### 5 7021-8 ####[facility]ORATORYCLIA [id number] [address] [place] Eosinophils/100 WBC (Bld) 2.7 % Normal [facility] Comment on above: Order Comment: Speci men Type: BLOOD SPECIMENOrdering Facility: [facility] Address: [address] [place] [address] Performed By: #### 5 7021-8 ####[facility]ORATORYCLIA [id number] [address] Erythrocyte distribution width (RBC) [Ratio] 17.2 % High 11.5-15.0 [facility] Comment on above: Order Comment: Speci men Type: BLOOD SPECIMENOrdering Facility: [facility] Address: [address] [place] [address] Performed By: #### 5 7021-8 ####[facility]ORATORYCLIA [id number] [address] STATES [facility] Hematocrit (Bld) [Volume fraction] 30.8 % Low 39.0-51.0 [facility] Comment on above: Order Comment: Speci men Type: BLOOD SPECIMENOrdering Facility: [facility] Address: [address] [address] Performed By: #### 5 7021-8 ####[facility]ORATORYCLIA [id number] [address] [place] Hemoglobin (Bld) [Mass/Vol] 9.4 g/dL Low 13.0-17.0 [facility] Comment on above: Order Comment: Speci men Type: BLOOD SPECIMENOrdering Facility: [facility] Address: [address] [place], [place] [address] Performed By: #### 5 7021-8 ####[facility]ORATORYCLIA [id number] [address] IMMATURE GRAN % 0.5 % Normal [facility] Comment on above: Order Comment: Speci men Type: BLOOD SPECIMENOrdering Facility: [facility] Address: [address] [place] [address] Performed By: #### 5 7021-8 ####[facility]ORATORYCLIA [id number] [address] IMMATURE GRAN ABS 0.06 k/uL Normal <0.10 [facility] Comment on above: Order Comment: Speci men Type: BLOOD SPECIMENOrdering Facility: [facility] Address: [address] [place] [address] Performed By: #### 5 7021-8 ####[facility]ORATORYCLIA [id number] [address] Lymphocytes (Bld) [#/Vol] 1.68 10*3/uL Normal 1.00-4.00 [facility] Comment on above: Order Comment: Speci men Type: BLOOD SPECIMENOrdering Facility: [facility] Address: [address] [place] [address] Performed By: #### 5 7021-8 ####[facility]ORATORYCLIA [id number] [address] Lymphocytes/100 WBC (Bld) 15.3 % Normal [facility] Comment on above: Order Comment: Speci men Type: BLOOD SPECIMENOrdering Facility: [facility] Address: [address] [place] [address] Performed By: #### 5 7021-8 ####[facility]ORATORYCLIA [id number] [address] MCH (RBC) [Entitic mass] 28.0 pg Normal 26.0-34.0 [facility] Comment on above: Order Comment: Speci men Type: BLOOD SPECIMENOrdering Facility: [facility] Address: [address] [place] [address] Performed By: #### 5 7021-8 ####[facility]ORATORYCLIA [id number] [address] MCHC (RBC) [Mass/Vol] 30.5 g/dL Normal 30.5-36.0 [facility] Comment on above: Order Comment: Speci men Type: BLOOD SPECIMENOrdering Facility: [facility] Address: [address] [place] [address] Performed By: #### 5 7021-8 ####[facility]ORATORYCLIA [id number] [address] MCV (RBC) [Entitic vol] 91.7 fL Normal 80.0-100.0 [facility] Comment on above: Order Comment: Speci men Type: BLOOD SPECIMENOrdering Facility: [facility] Address: [address] [place] [address] Performed By: #### 5 7021-8 ####[facility]ORATORYCLIA [id number] [address] OF [facility] Monocytes (Bld) [#/Vol] 0.53 10*3/uL Normal <0.87 [facility] Comment on above: Order Comment: Speci men Type: BLOOD SPECIMENOrdering Facility: [facility] Address: [address] [place] [address] Performed By: #### 5 7021-8 ####[facility]ORATORYCLIA [id number] [address] Monocytes/100 WBC (Bld) 4.8 % Normal [facility] Comment on above: Order Comment: Speci men Type: BLOOD SPECIMENOrdering Facility: [facility] Address: [address] [place] [address] Performed By: #### 5 7021-8 ####[facility]ORATORYCLIA [id number] [address] [place] Neutrophils (Bld) [#/Vol] 8.39 10*3/uL High 1.45-7.50 [facility] Comment on above: Order Comment: Speci men Type: BLOOD SPECIMENOrdering Facility: [facility] Address: [address] [place] [address] Performed By: #### 5 7021-8 ####[facility]ATORYCLIA [id number] [address] Neutrophils/100 WBC (Bld) 76.3 % Normal [facility] Comment on above: Order Comment: Speci men Type: BLOOD SPECIMENOrdering Facility: [facility] Address: [address] [place] [address] Performed By: #### 5 7021-8 ####[facility]ORATORYCLIA [id number] [address] STATES [facility] Nucleated RBC (Bld) [#/Vol] 10*3/uL Normal <0.01 [facility] Comment on above: Order Comment: Speci men Type: BLOOD SPECIMENOrdering Facility: [facility] Address: [address] [place] [address] Performed By: #### 5 7021-8 ####[facility]ATORYCLIA [id number] [address] Nucleated RBC/100 WBC (Bld) [Ratio] 0.0 /100 WBC Normal [facility] Comment on above: Order Comment: Speci men Type: BLOOD SPECIMENOrdering Facility: [facility] Address: [address] [place] [address] Performed By: #### 5 7021-8 ####[facility]ORATORYCLIA [id number] [address] Platelet mean volume (Bld) [Entitic vol] 10.9 fL Normal 9.0-12.7 [facility] Comment on above: Order Comment: Speci men Type: BLOOD SPECIMENOrdering Facility: [facility] Address: [address] [place] [address] Performed By: #### 5 7021-8 ####[facility]ATORYCLIA [id number] [address] OF [facility] Platelets (Bld) [#/Vol] 287 10*3/uL Normal 150-400 [facility] Comment on above: Order Comment: Speci men Type: BLOOD SPECIMENOrdering Facility: [facility] Address: [address] [place] [address] Performed By: #### 5 7021-8 ####[facility]ORATORYCLIA [id number] [address] STATES OF [facility] RBC (Bld) [#/Vol] 3.36 10*6/uL Low 4.20-6.00 [facility] Comment on above: Order Comment: Speci men Type: BLOOD SPECIMENOrdering Facility: [facility] Address: [address] [place] [address] Performed By: #### 5 7021-8 ####[facility]ATORYCLIA [id number] [address] WBC (Bld) [#/Vol] 11.00 10*3/uL Normal 3.70-11.00 [facility] Comment on above: Order Comment: Speci men Type: BLOOD SPECIMENOrdering Facility: [facility] Address: [address] [place] [address] Performed By: #### 5 7021-8 ####[facility]ATORYCLIA [id number] [address] CSF MANUAL DIFFon 07-30-2021 DIF TTL, CSF 100 cells counted Normal [facility] Comment on above: Order Comment: Speci men Type: CEREBROSPINAL FLUIDOrdering Facility: [facility] Address: [address] [place] [address] Performed By: #### L [id number], [id number], 42178-4 ####[facility]ATORYCLIA [id number] [address] EOSIN%, CSF 0 % Normal [facility] Comment on above: Order Comment: Speci men Type: CEREBROSPINAL FLUIDOrdering Facility: [facility] Address: [address] [place] [address] Performed By: #### L [id number], [id number], 68354-9 ####[facility]ORYCLIA [id number] [address] [place] LYMPH%, CSF 75 % Normal 50-90 [facility] Comment on above: Order Comment: Speci men Type: CEREBROSPINAL FLUIDOrdering Facility: [facility] Address: [address] [place] [address] Performed By: #### L [id number], [id number], 76780-8 ####[facility]ORYCLIA [id number] [place] [address] [place] MACRO%, CSF 9 % High <1 [facility] Comment on above: Order Comment: Speci men Type: CEREBROSPINAL FLUIDOrdering Facility: [facility] Address: [address] [place] [address] Performed By: #### L [id number], [id number], 20929-2 ####[facility]ORYCLIA [id number] [place] [address] [place] MONO%, CSF 10 % Normal 10-50 [facility] Comment on above: Order Comment: Speci men Type: CEREBROSPINAL FLUIDOrdering Facility: [facility] Address: [address] [place] [address] Performed By: #### L [id number], [id number], 21368-8 ####[facility]ORYCLIA [id number] [address] [place] OTHER CL%, CSF 4 % Normal [facility] Comment on above: Order Comment: Speci men Type: CEREBROSPINAL FLUIDOrdering Facility: [facility] Address: [address] [place] [address] Result Comment: Path review to follow. Performed By: #### L [id number], [id number], 22240-0 ####[facility]ORYCLIA [id number] [address] [place] REAC LYMPH %, CSF 2 % Normal [facility] Comment on above: Order Comment: Speci men Type: CEREBROSPINAL FLUIDOrdering Facility: [facility] Address: [address] [place] [address] Performed By: #### L [id number], [id number], 15308-0 ####[facility]ATORYCLIA [id number] [address] [place] CSF PATHOLOGIST INTERP (LAB REFLEX ORDER-NO BILL)on 07-30-2021 CSF STAFF REVIEW Negative Normal [facility] Comment on above: Order Comment: Speci men Type: CEREBROSPINAL FLUIDOrdering Facility: [facility] Address: [address] [place] [address] Performed By: #### L [id number], [id number], 77447-2 ####[facility]ATORYCLIA [id number] [address] Pathologist name Reviewed by Eloise rebolledo MD [facility] Comment on above: Order Comment: Speci men Type: CEREBROSPINAL FLUIDOrdering Facility: [facility] Address: [address] [place] [address] Performed By: #### L [id number], [id number], 76850-9 ####[facility]ORYCLIA [id number] [address] [place] CT BRAIN WO IVCONon 07-31-19 CT BRAIN WO IVCON Normal [facility] Cell count panel (CSF)on Clarity (CSF) Clear Normal Clear [facility] Comment on above: Order Comment: Speci men Type: CEREBROSPINAL FLUIDOrdering Facility: [facility] Address: [address] [place] [address] Performed By: #### L [id number], [id number], [id number] ####[facility] LABORATORYCLIA [id number] [address] [place] Clarity (Unsp spec) Clear Normal Clear [facility] Comment on above: Order Comment: Speci men Type: CEREBROSPINAL FLUIDOrdering Facility: [facility] Address: [address] [place] [address] Performed By: #### L [id number], [id number], [id number] ####[facility] LABORATORYCLIA [id number] Color (CSF) Colorless Normal Colorless [place] [facility] Comment on above: Order Comment: Speci men Type: CEREBROSPINAL FLUIDOrdering Facility: [facility] Address: [address] [place] [address] Performed By: #### L [id number], [id number], 28454-8 ####[facility] LABORATORYCLIA [id number] [address] Color (Spun CSF) Colorless Normal Colorless [facility] Comment on above: Order Comment: Speci men Type: CEREBROSPINAL FLUIDOrdering Facility: [facility] Address: [address] [place] [address] Performed By: #### L [id number], [id number], 66556-3 ####[facility] LABORATORYCLIA [id number] [address] CSF TUBE NUMBER [employer] Normal [facility] Comment on above: Order Comment: Speci men Type: CEREBROSPINAL FLUIDOrdering Facility: [facility] Address: [address] [place] [address] Performed By: #### L [id number], [id number], 76471-4 ####[facility] LABORATORYCLIA [id number] [address] [place] RBC Manual cnt (CSF) [#/Vol] 9 cells/uL High 0-5 [facility] Comment on above: Order Comment: Speci men Type: CEREBROSPINAL FLUIDOrdering Facility: [facility] Address: [address] [place] [address] Performed By: #### L [id number], [id number], 93599-5 ####[facility] LABORATORYCLIA [id number] [place] [address] [place] WBC Manual cnt (CSF) [#/Vol] 8 cells/uL High 0-5 [facility] Comment on above: Order Comment: Speci men Type: CEREBROSPINAL FLUIDOrdering Facility: [facility] Address: [address] [place] [address] Performed By: #### L [id number], [id number], 84029-3 ####[facility] LABORATORYCLIA [id number] [address] OF [facility] Glucose CSF-mCncon Glucose (CSF) [Mass/Vol] 65 mg/dL Normal 40-70 [facility] Comment on above: Order Comment: Speci men Type: CEREBROSPINAL FLUIDOrdering Facility: [facility] Address: [address] [place] [address] Result Comment: Lumb ar CSF glucose values of healthy patients are approximately 60% of the plasma values and must always be compared with a concurrently measured plasma value for adequate clinical interpretation.References: 1. Glucose HK (GLUC3) [package insert V 12.0 [place]]. [employer], [place], [place]. September 2015. 2. Michelle Moore, Loki H. (2015). Chapter 7: Glucose and Lactate. FGarfield Alcocer al.(eds.), Cerebrospinal Fluid in Clinical Neurology. [place]: Outcome [employer]. Performed By: #### 2 342-4, 2880-3 ####[facility]ORATORYCLIA [id number] [place] [address] [place] Magnesium SerPl-mCncon 07-30 Magnesium [Mass/Vol] 2.5 mg/dL High 1.7-2.3 [facility] Comment on above: Order Comment: Speci men Type: BLOOD SPECIMENOrdering Facility: [facility] Address: [address] [place] [address] Performed By: #### 2 777-1, 51559-9, 91061-3 ####[facility]ORATORYCLIA [id number] [place] [address] [place] NURSING PROGon 07-30-2021 NURSING PROG Normal [facility] Phosphate SerPl-mCncon 07-30 Phosphate [Mass/Vol] 2.4 mg/dL Low 2.7-4.8 [facility] Comment on above: Order Comment: Speci men Type: BLOOD SPECIMENOrdering Facility: [facility] Address: [address] [place] [address] Performed By: #### 2 777-1, 87633-7, 87249-6 ####[facility]ORATORYCLIA [id number] [address] Prot CSF-mCncon 07-30-2021 Protein (CSF) [Mass/Vol] 50 mg/dL High 15-45 [facility] Comment on above: Order Comment: Speci men Type: CEREBROSPINAL FLUIDOrdering Facility: [facility] Address: [address] [place] [address] Performed By: #### 2 342-4, 2880-3 ####[facility]ITALCL[facility] [id number] [address] aPTT PPPon 07-30-2021 aPTT Coag (PPP) [Time] 64.1 s High 23.0-32.4 [facility] Comment on above: Order Comment: Speci men Type: BLOOD SPECIMENOrdering Facility: [facility] Address: [address] [place] [address] Performed By: #### 1 4979-9 ####[facility]ITALCLIA [id number] [address] Bacteria CSF Culton 07-30-19 22 Bacteria identified Cx Nom (CSF) CULTURE, CSF: No growth 14 days GRAM STAIN: No cells or organisms seen Gram stain performed on cytospun specimen. Gram stain confirmed by microbiology Normal [facility] Comment on above: Performed By: #### 6 06-4 ####[facility]ORATORYCLIA [id number] [address] [place] CASE MANAGEMon 07-29-2021 CASE MANAGEM Normal [facility] CBC W Auto Differential pane l (Bld)on 07-29-2021 Basophils (Bld) [#/Vol] 0.03 10*3/uL Normal <0.11 [facility] Comment on above: Order Comment: Speci men Type: BLOOD SPECIMENOrdering Facility: [facility] Address: [address] [place] [address] Performed By: #### 5 7021-8 ####[facility] [facility]ORATORYCLIA [id number] [address] [place] Basophils/100 WBC (Bld) 0.3 % Normal [facility] Comment on above: Order Comment: Speci men Type: BLOOD SPECIMENOrdering Facility: [facility] Address: [address] [place] [address] Performed By: #### 5 7021-8 ####[facility]ATORYCLIA [id number] [address] [place] Differential cell count method Nom (Bld) Auto Normal [facility] Comment on above: Order Comment: Speci men Type: BLOOD SPECIMENOrdering Facility: [facility] Address: [address] [place] [address] Performed By: #### 5 7021-8 ####[facility]ATORYCLIA [id number] [address] [place] Eosinophils (Bld) [#/Vol] 0.40 10*3/uL Normal <0.46 [facility] Comment on above: Order Comment: Speci men Type: BLOOD SPECIMENOrdering Facility: [facility] Address: [address] [place] [address] Performed By: #### 5 7021-8 ####[facility] [facility]ORATORYCLIA [id number] [address] STATES [place] Eosinophils/100 WBC (Bld) 3.9 % Normal [facility] Comment on above: Order Comment: Speci men Type: BLOOD SPECIMENOrdering Facility: [facility] Address: [address] [place] [address] Performed By: #### 5 7021-8 ####[facility] [facility]ORATORYCLIA [id number] [address] Erythrocyte distribution width (RBC) [Ratio] 17.1 % High 11.5-15.0 [facility] Comment on above: Order Comment: Speci men Type: BLOOD SPECIMENOrdering Facility: [facility] Address: [address] [place] [address] Performed By: #### 5 7021-8 ####[facility] LABORATORYCLIA [id number] [address] Hematocrit (Bld) [Volume fraction] 32.0 % Low 39.0-51.0 [facility] Comment on above: Order Comment: Speci men Type: BLOOD SPECIMENOrdering Facility: [facility] Address: [address] [place] [address] Performed By: #### 5 7021-8 ####[facility]ITALCLIA [id number] [address] STATES OF [facility] Hemoglobin (Bld) [Mass/Vol] 9.7 g/dL Low 13.0-17.0 [facility] Comment on above: Order Comment: Speci men Type: BLOOD SPECIMENOrdering Facility: [facility] Address: [address] [place] [address] Performed By: #### 5 7021-8 ####[facility]ORATORYCLIA [id number] [address] IMMATURE GRAN % 0.6 % Normal [facility] Comment on above: Order Comment: Speci men Type: BLOOD SPECIMENOrdering Facility: [facility] Address: [address] [place] [address] Performed By: #### 5 7021-8 ####[facility]ORATORYCLIA [id number] [address] IMMATURE GRAN ABS 0.06 k/uL Normal <0.10 [facility] Comment on above: Order Comment: Speci men Type: BLOOD SPECIMENOrdering Facility: [facility] Address: [address] [place] [address] Performed By: #### 5 7021-8 ####[facility] LABORATORYCLIA [id number] [address] STATES OF [facility] Lymphocytes (Bld) [#/Vol] 1.96 10*3/uL Normal 1.00-4.00 [facility] Comment on above: Order Comment: Speci men Type: BLOOD SPECIMENOrdering Facility: [facility] Address: [address] [place] [address] Performed By: #### 5 7021-8 ####[facility]ORATORYCLIA [id number] [address] Lymphocytes/100 WBC (Bld) 19.0 % Normal [facility] Comment on above: Order Comment: Speci men Type: BLOOD SPECIMENOrdering Facility: [facility] Address: [address] [place] [address] Performed By: #### 5 7021-8 ####[facility]ORATORYCLIA [id number] [address] STATES OF [facility] MCH (RBC) [Entitic mass] 28.0 pg Normal 26.0-34.0 [facility] Comment on above: Order Comment: Speci men Type: BLOOD SPECIMENOrdering Facility: [facility] Address: [address] [place] [address] Performed By: #### 5 7021-8 ####[facility]ORATORYCLIA [id number] [address] [place] MCHC (RBC) [Mass/Vol] 30.3 g/dL Low 30.5-36.0 [facility] Comment on above: Order Comment: Speci men Type: BLOOD SPECIMENOrdering Facility: [facility] Address: [address] [place] [address] Performed By: #### 5 7021-8 ####[facility]ORATORYCLIA [id number] [address] [place] MCV (RBC) [Entitic vol] 92.5 fL Normal 80.0-100.0 [facility] Comment on above: Order Comment: Speci men Type: BLOOD SPECIMENOrdering Facility: [facility] Address: [address] [place] [address] Performed By: #### 5 7021-8 ####[facility] [facility]ORATORYCLIA [id number] [address] [place] Monocytes (Bld) [#/Vol] 0.53 10*3/uL Normal <0.87 [facility] Comment on above: Order Comment: Speci men Type: BLOOD SPECIMENOrdering Facility: [facility] Address: [address] [place] [address] Performed By: #### 5 7021-8 ####[facility] [facility]ORATORYCLIA [id number] [address] [place] Monocytes/100 WBC (Bld) 5.2 % Normal [facility] Comment on above: Order Comment: Speci men Type: BLOOD SPECIMENOrdering Facility: [facility] Address: [address] [place] [address] Performed By: #### 5 7021-8 ####[facility]ATORYCLIA [id number] [address] [place] Neutrophils (Bld) [#/Vol] 7.31 10*3/uL Normal 1.45-7.50 [facility] Comment on above: Order Comment: Speci men Type: BLOOD SPECIMENOrdering Facility: [facility] Address: [address] [place] [address] Performed By: #### 5 7021-8 ####[facility] [facility]ORATORYCLIA [id number] [address] [place] Neutrophils/100 WBC (Bld) 71.0 % Normal [facility] Comment on above: Order Comment: Speci men Type: BLOOD SPECIMENOrdering Facility: [facility] Address: [address] [place] [address] Performed By: #### 5 7021-8 ####[facility] [facility]ORATORYCLIA [id number] [address] Nucleated RBC (Bld) [#/Vol] 10*3/uL Normal <0.01 [facility] Comment on above: Order Comment: Speci men Type: BLOOD SPECIMENOrdering Facility: [facility] Address: [address] [place] [address] Performed By: #### 5 7021-8 ####[facility]ORATORYCLIA [id number] [address] [place] Nucleated RBC/100 WBC (Bld) [Ratio] 0.0 /100 WBC Normal [facility] Comment on above: Order Comment: Speci men Type: BLOOD SPECIMENOrdering Facility: [facility] Address: [address] [place] [address] Performed By: #### 5 7021-8 ####[facility]ORATORYCLIA [id number] [address] [place] Platelet mean volume (Bld) [Entitic vol] 11.2 fL Normal 9.0-12.7 [facility] Comment on above: Order Comment: Speci men Type: BLOOD SPECIMENOrdering Facility: [facility] Address: [address] [place] [address] Performed By: #### 5 7021-8 ####[facility]ORATORYCLIA [id number] [address] [place] Platelets (Bld) [#/Vol] 276 10*3/uL Normal 150-400 [facility] Comment on above: Order Comment: Speci men Type: BLOOD SPECIMENOrdering Facility: [facility] Address: [address] [place] [address] Performed By: #### 5 7021-8 ####[facility]ORATORYCLIA [id number] [address] [place] RBC (Bld) [#/Vol] 3.46 10*6/uL Low 4.20-6.00 [facility] Comment on above: Order Comment: Speci men Type: BLOOD SPECIMENOrdering Facility: [facility] Address: [address] [place] [address] Performed By: #### 5 7021-8 ####[facility]ORATORYCLIA [id number] [place] [address] [place] WBC (Bld) [#/Vol] 10.29 10*3/uL Normal 3.70-11.00 [facility] Comment on above: Order Comment: Speci men Type: BLOOD SPECIMENOrdering Facility: [facility] Address: [address] [place] [address] Performed By: #### 5 7021-8 ####[facility]ORATORYCLIA [id number] [address] OF [facility] NURSING PROGon 07-29-2021 NURSING PROG Normal [facility] THERAPY NTon 07-29-2021 THERAPY NT Normal [facility] aPTT PPPon 07-29-2021 aPTT Coag (PPP) [Time] 59.2 s High 23.0-32.4 [facility] Comment on above: Order Comment: Speci men Type: BLOOD SPECIMENOrdering Facility: [facility] Address: [address] [place] [address] Performed By: #### 1 4979-9 ####[facility]ORATORYCLIA [id number] [address] [place] ALLIED HEALTHon 07-28-2021 ALLIED HEALTH Normal [facility] Basic metabolic 2000 panelon 07-28-2021 Anion gap [Moles/Vol] 7 mmol/L Low 9-18 [facility] Comment on above: Order Comment: Speci men Type: BLOOD SPECIMENOrdering Facility: [facility] Address: [address] [address] Performed By: #### 1 4338-8, 62335-7, 2777-1, 36815-1 ####[facility]ORATORYCLIA [id number] [address] [place] Calcium [Mass/Vol] 9.0 mg/dL Normal 8.5-10.2 [facility] Comment on above: Order Comment: Speci men Type: BLOOD SPECIMENOrdering Facility: [facility] Address: [address] [place] [address] Performed By: #### 1 4338-8, 94243-8, 277-, 66429-5 ####[facility] LABORATORYCLIA [id number] [place] [address] [place] Chloride [Moles/Vol] 94 mmol/L Low 97-105 [facility] Comment on above: Order Comment: Speci men Type: BLOOD SPECIMENOrdering Facility: [facility] Address: [address] [place] [address] Performed By: #### 1 4338-8, 11585-2, 27711-04, 98039-6 ####[facility]ITALCLIA [id number] [address] [place] CO2 [Moles/Vol] 31 mmol/L High 22-30 [facility] Comment on above: Order Comment: Speci men Type: BLOOD SPECIMENOrdering Facility: [facility] Address: [address] [place] [address] Performed By: #### 1 4338-8, 66823-0, 2776-05, 46364-7 ####[facility]ITALCLIA [id number] [address] STATES OF [facility] Creatinine [Mass/Vol] 0.75 mg/dL Normal 0.73-1.22 [facility] Comment on above: Order Comment: Speci men Type: BLOOD SPECIMENOrdering Facility: [facility] Address: [address] [place] [address] Performed By: #### 1 4338-8, 25929-8, 27711-04, 19421-5 ####[facility]ORATORYCLIA [id number] [address] ESTIMATED GLOMERULAR FILTRATION RATE 98 mL/min/1.73m??? Normal >=60 [facility] Comment on above: Order Comment: Speci men Type: BLOOD SPECIMENOrdering Facility: [facility] Address: [address] [place] [address] Result Comment: Luzmaria mated Glomerular Filtration Rate [...] actual GFR. Performed By: #### 1 4338-8, 42562-4, 2777-, 93006-9 ####[facility]ORATORYCLIA [id number] [place] [address] [place] Glucose [Mass/Vol] 122 mg/dL High 74-99 [facility] Comment on above: Order Comment: Speccara feldman Type: BLOOD SPECIMENOrdering Facility: [facility] Address: [address] Result Comment: The [place] Diabetes Association (ADA) provides guidance for cutoff [...] Standards of Medical Care in Diabetes 2016, [place] [employer]. Diabetes Care. 2016.39(Suppl 1). Performed By: #### 1 4338-8, 35630-9, 2777-, 38448-8 ####[facility]ORATORYCLIA [id number] [place] [address] [place] Potassium [Moles/Vol] 4.0 mmol/L Normal 3.7-5.1 [facility] Comment on above: Order Comment: Shira feldman Type: BLOOD SPECIMENOrdering Facility: [facility] Address: [address] [id number] Performed By: #### 1 4338-8, 67740-4, 2777-1, 42061-9 ####[facility]ATORYCLIA [id number] [place] [address] [place] Sodium [Moles/Vol] 132 mmol/L Low 136-144 [facility] Comment on above: Order Comment: Speci men Type: BLOOD SPECIMENOrdering Facility: [facility] Address: [address] [place] [address] Performed By: #### 1 4338-8, 53798-1, 7-1, 65791-1 ####[facility]ORATORYCLIA [id number] [place] [address] [place] Urea nitrogen [Mass/Vol] 34 mg/dL High 01-28 [facility] Comment on above: Order Comment: Speci men Type: BLOOD SPECIMENOrdering Facility: [facility] Address: [address] [place] [address] Performed By: #### 1 4338-8, 23427-4, 2777-1, 45091-7 ####[facility]ATORYCLIA [id number] [address] [place] CBC W Auto Differential pane l (Bld)on 07-28-2021 Basophils (Bld) [#/Vol] 0.04 10*3/uL Normal <0.11 [facility] Comment on above: Order Comment: Speci men Type: BLOOD SPECIMENOrdering Facility: [facility] Address: [address] [place] [address] Performed By: #### 5 7021-8 ####[facility]ORATORYCLIA [id number] [address] [place] Basophils/100 WBC (Bld) 0.5 % Normal [facility] Comment on above: Order Comment: Speci men Type: BLOOD SPECIMENOrdering Facility: [facility] Address: [address] [place] [address] Performed By: #### 5 7021-8 ####[facility]ATORYCLIA [id number] [address] Differential cell count method Nom (Bld) Auto Normal [facility] Comment on above: Order Comment: Speci men Type: BLOOD SPECIMENOrdering Facility: [facility] Address: [address] [place] [address] Performed By: #### 5 7021-8 ####[facility]ATORYCLIA [id number] [address] [place] Eosinophils (Bld) [#/Vol] 0.30 10*3/uL Normal <0.46 [facility] Comment on above: Order Comment: Speci men Type: BLOOD SPECIMENOrdering Facility: [facility] Address: [address] [place] [address] Performed By: #### 5 7021-8 ####[facility]ATORYCLIA [id number] [address] Eosinophils/100 WBC (Bld) 3.4 % Normal [facility] Comment on above: Order Comment: Speci men Type: BLOOD SPECIMENOrdering Facility: [facility] Address: [address] [place] [address] Performed By: #### 5 7021-8 ####[facility]ATORYCLIA [id number] [address] [place] Erythrocyte distribution width (RBC) [Ratio] 16.9 % High 11.5-15.0 [facility] Comment on above: Order Comment: Speci men Type: BLOOD SPECIMENOrdering Facility: [facility] Address: [address] [place] [address] Performed By: #### 5 7021-8 ####[facility]ATORYCLIA [id number] [address] Hematocrit (Bld) [Volume fraction] 30.3 % Low 39.0-51.0 [facility] Comment on above: Order Comment: Speci men Type: BLOOD SPECIMENOrdering Facility: [facility] Address: [address] [place] [address] Performed By: #### 5 7021-8 ####[facility]ATORYCLIA [id number] [address] STATES OF [facility] Hemoglobin (Bld) [Mass/Vol] 9.2 g/dL Low 13.0-17.0 [facility] Comment on above: Order Comment: Speci men Type: BLOOD SPECIMENOrdering Facility: [facility] Address: [address] [place] [address] Performed By: #### 5 7021-8 ####[facility]ATORYCLIA [id number] [address] IMMATURE GRAN % 0.6 % Normal [facility] Comment on above: Order Comment: Speci men Type: BLOOD SPECIMENOrdering Facility: [facility] Address: [address] [place] [address] Performed By: #### 5 7021-8 ####[facility]ATORYCLIA [id number] [address] IMMATURE GRAN ABS 0.05 k/uL Normal <0.10 [facility] Comment on above: Order Comment: Speci men Type: BLOOD SPECIMENOrdering Facility: [facility] Address: [address] [place] [address] Performed By: #### 5 7021-8 ####[facility]ORATORYCLIA [id number] [address] [place] Lymphocytes (Bld) [#/Vol] 1.68 10*3/uL Normal 1.00-4.00 [facility] Comment on above: Order Comment: Speci men Type: BLOOD SPECIMENOrdering Facility: [facility] Address: [address] [place] [address] Performed By: #### 5 7021-8 ####[facility]ATORYCLIA [id number] [address] Lymphocytes/100 WBC (Bld) 19.2 % Normal [facility] Comment on above: Order Comment: Speci men Type: BLOOD SPECIMENOrdering Facility: [facility] Address: [address] [place] [address] Performed By: #### 5 7021-8 ####[facility]ATORYCLIA [id number] [address] MCH (RBC) [Entitic mass] 28.4 pg Normal 26.0-34.0 [facility] Comment on above: Order Comment: Speci men Type: BLOOD SPECIMENOrdering Facility: [facility] Address: [address] [place] [address] Performed By: #### 5 7021-8 ####[facility]ORATORYCLIA [id number] [address] STATES OF [facility] MCHC (RBC) [Mass/Vol] 30.4 g/dL Low 30.5-36.0 [facility] Comment on above: Order Comment: Speci men Type: BLOOD SPECIMENOrdering Facility: [facility] Address: [address] [place] [address] Performed By: #### 5 7021-8 ####[facility]ATORYCLIA [id number] [address] STATES OF [facility] MCV (RBC) [Entitic vol] 93.5 fL Normal 80.0-100.0 [facility] Comment on above: Order Comment: Speci men Type: BLOOD SPECIMENOrdering Facility: [facility] Address: [address] [place] [address] Performed By: #### 5 7021-8 ####[facility]ORATORYCLIA [id number] [address] Monocytes (Bld) [#/Vol] 0.58 10*3/uL Normal <0.87 [facility] Comment on above: Order Comment: Speci men Type: BLOOD SPECIMENOrdering Facility: [facility] Address: [address] [place] [address] Performed By: #### 5 7021-8 ####[facility] LABORATORYCLIA [id number] [address] Monocytes/100 WBC (Bld) 6.6 % Normal [facility] Comment on above: Order Comment: Speci men Type: BLOOD SPECIMENOrdering Facility: [facility] Address: [address] [place] [address] Performed By: #### 5 7021-8 ####[facility] LABORATORYCLIA [id number] [address] [place] Neutrophils (Bld) [#/Vol] 6.11 10*3/uL Normal 1.45-7.50 [facility] Comment on above: Order Comment: Speci men Type: BLOOD SPECIMENOrdering Facility: [facility] Address: [address] [place] [address] Performed By: #### 5 7021-8 ####[facility]ORATORYCLIA [id number] [address] [place] Neutrophils/100 WBC (Bld) 69.7 % Normal [facility] Comment on above: Order Comment: Speci men Type: BLOOD SPECIMENOrdering Facility: [facility] Address: [address] [place] [address] Performed By: #### 5 7021-8 ####[facility]ORATORYCLIA [id number] [place] [address] [place] Nucleated RBC (Bld) [#/Vol] 10*3/uL Normal <0.01 [facility] Comment on above: Order Comment: Speci men Type: BLOOD SPECIMENOrdering Facility: [facility] Address: [address] [place] [address] Performed By: #### 5 7021-8 ####[facility]ORATORYCLIA [id number] [address] [place] Nucleated RBC/100 WBC (Bld) [Ratio] 0.0 /100 WBC Normal [facility] Comment on above: Order Comment: Speci men Type: BLOOD SPECIMENOrdering Facility: [facility] Address: [address] [place] [address] Performed By: #### 5 7021-8 ####[facility]ORATORYCLIA [id number] [address] [place] Platelet mean volume (Bld) [Entitic vol] 11.3 fL Normal 9.0-12.7 [facility] Comment on above: Order Comment: Speci men Type: BLOOD SPECIMENOrdering Facility: [facility] Address: [address] [place] [address] Performed By: #### 5 7021-8 ####[facility] LABORATORYCLIA [id number] [place] [address] [place] Platelets (Bld) [#/Vol] 238 10*3/uL Normal 150-400 [facility] Comment on above: Order Comment: Speci men Type: BLOOD SPECIMENOrdering Facility: [facility] Address: [address] [place] [address] Performed By: #### 5 7021-8 ####[facility] LABORATORYCLIA [id number] [place] [address] [place] RBC (Bld) [#/Vol] 3.24 10*6/uL Low 4.20-6.00 [facility] Comment on above: Order Comment: Speci men Type: BLOOD SPECIMENOrdering Facility: [facility] Address: [address] [place] [address] Performed By: #### 5 7021-8 ####[facility] LABORATORYCLIA [id number] [place] [address] [place] WBC (Bld) [#/Vol] 8.76 10*3/uL Normal 3.70-11.00 [facility] Comment on above: Order Comment: Speci men Type: BLOOD SPECIMENOrdering Facility: [facility] Address: [address] [place] [address] Performed By: #### 5 7021-8 ####[facility] LABORATORYCLIA [id number] [address] [place] MRI BRAIN WO/W IVCONon 07-28 MRI BRAIN WO/W IVCON Normal [facility] Magnesium SerPl-mCncon 07-28 Magnesium [Mass/Vol] 2.5 mg/dL High 1.7-2.3 [facility] Comment on above: Order Comment: Speci men Type: BLOOD SPECIMENOrdering Facility: [facility] Address: [address] [place] [address] Performed By: #### 1 4338-8, 76475-9, 2777-1, 57612-4 ####[facility] LABORATORYCLIA [id number] [address] OF [facility] NURSING PROGon 07-28-2021 NURSING PROG Normal [facility] NURSING PROG Normal [facility] Phosphate SerPl-mCncon 07-28 Phosphate [Mass/Vol] 2.8 mg/dL Normal 2.7-4.8 [facility] Comment on above: Order Comment: Speci men Type: BLOOD SPECIMENOrdering Facility: [facility] Address: [address] [place] [address] Performed By: #### 1 4338-8, 89821-9, 2777-1, 97115-4 ####[facility] LABORATORYCLIA [id number] [address] [place] Prealbumin [Mass/Vol]on 07-06 Prealbumin Nephelometry [Mass/Vol] 25 mg/dL Normal 17-36 [facility] Comment on above: Order Comment: Speci men Type: BLOOD SPECIMENOrdering Facility: [facility] Address: [address] [place] [address] Performed By: #### 1 4338-8, 47439-7, 2777-1, 33327-9 ####[facility] LABORATORYCLIA [id number] [address] [place] aPTT PPPon 07-28-2021 aPTT Coag (PPP) [Time] 53.0 s High 23.0-32.4 [facility] Comment on above: Order Comment: Speci men Type: BLOOD SPECIMENOrdering Facility: [facility] Address: [address] [place] [address] Performed By: #### 1 4979-9 ####[facility] LABORATORYCLIA [id number] [address] aPTT Coag (PPP) [Time] 57.2 s High 23.0-32.4 [facility] Comment on above: Order Comment: Speci men Type: BLOOD SPECIMENOrdering Facility: [facility] Address: [address] [place] [address] Performed By: #### 1 4979-9 ####[facility] LABORATORYCLIA [id number] [address] [place] Bacteria CSF Culton 07-28-19 Bacteria identified Cx Nom (CSF) CULTURE, CSF: No growth 14 days GRAM STAIN: No organisms seen Rare Polymorphonuclear leukocytes Rare Red Blood Cells Gram stain performed on cytospun specimen. Normal [facility] Comment on above: Performed By: #### 6 06-4 ####[facility] LABORATORYCLIA [id number] [address] [place] Bacteria Spec Resp Culton Bacteria identified Respiratory culture Nom (Unsp spec) CULTURE, RESPIRATORY: Rare Normal respiratory chris present GRAM STAIN: No organisms seen Rare Polymorphonuclear leukocytes Rare Epithelial cells Normal [facility] Comment on above: Performed By: #### 3 2355-0 ####[facility] LABORATORYCLIA [id number] [address] [place] CASE MANAGEMon 07-27-2021 CASE MANAGEM Normal [facility] CBC W Auto Differential pane l (Bld)on 07-27-2021 Basophils (Bld) [#/Vol] 0.04 10*3/uL Normal <0.11 [facility] Comment on above: Order Comment: Speci men Type: BLOOD SPECIMENOrdering Facility: [facility] Address: [address] [address] Performed By: #### 5 7021-8 ####[facility] LABORATORYCLIA [id number] [address] Basophils/100 WBC (Bld) 0.4 % Normal [facility] Comment on above: Order Comment: Speci men Type: BLOOD SPECIMENOrdering Facility: [facility] Address: [address] [place] [address] Performed By: #### 5 7021-8 ####[facility] LABORATORYCLIA [id number] [address] [place] Differential cell count method Nom (Bld) Auto Normal [facility] Comment on above: Order Comment: Speci men Type: BLOOD SPECIMENOrdering Facility: [facility] Address: [address] [place] [address] Performed By: #### 5 7021-8 ####[facility] LABORATORYCLIA [id number] [address] [place] Eosinophils (Bld) [#/Vol] 0.50 10*3/uL High <0.46 [facility] Comment on above: Order Comment: Speci men Type: BLOOD SPECIMENOrdering Facility: [facility] Address: [address] [place] [address] Performed By: #### 5 7021-8 ####[facility] LABORATORYCLIA [id number] [address] [place] Eosinophils/100 WBC (Bld) 5.2 % Normal [facility] Comment on above: Order Comment: Speci men Type: BLOOD SPECIMENOrdering Facility: [facility] Address: [address] [place] [address] Performed By: #### 5 7021-8 ####[facility] LABORATORYCLIA [id number] [address] [place] Erythrocyte distribution width (RBC) [Ratio] 16.8 % High 11.5-15.0 [facility] Comment on above: Order Comment: Speci men Type: BLOOD SPECIMENOrdering Facility: [facility] Address: [address] [place] [address] Performed By: #### 5 7021-8 ####[facility] LABORATORYCLIA [id number] [address] Hematocrit (Bld) [Volume fraction] 29.8 % Low 39.0-51.0 [facility] Comment on above: Order Comment: Speci men Type: BLOOD SPECIMENOrdering Facility: [facility] Address: [address] [place] [address] Performed By: #### 5 7021-8 ####[facility] LABORATORYCLIA [id number] [address] [place] Hemoglobin (Bld) [Mass/Vol] 9.0 g/dL Low 13.0-17.0 [facility] Comment on above: Order Comment: Speci men Type: BLOOD SPECIMENOrdering Facility: [facility] Address: [address] [place] [address] Performed By: #### 5 7021-8 ####[facility] LABORATORYCLIA [id number] [address] IMMATURE GRAN % 0.6 % Normal [facility] Comment on above: Order Comment: Speci men Type: BLOOD SPECIMENOrdering Facility: [facility] Address: [address] [place] [address] Performed By: #### 5 7021-8 ####[facility] LABORATORYCLIA [id number] [address] IMMATURE GRAN ABS 0.06 k/uL Normal <0.10 [facility] Comment on above: Order Comment: Speci men Type: BLOOD SPECIMENOrdering Facility: [facility] Address: [address] [place] [address] Performed By: #### 5 7021-8 ####[facility] LABORATORYCLIA [id number] [address] [place] Lymphocytes (Bld) [#/Vol] 1.73 10*3/uL Normal 1.00-4.00 [facility] Comment on above: Order Comment: Speci men Type: BLOOD SPECIMENOrdering Facility: [facility] Address: [address] [place] [address] Performed By: #### 5 7021-8 ####[facility] LABORATORYCLIA [id number] [address] Lymphocytes/100 WBC (Bld) 17.9 % Normal [facility] Comment on above: Order Comment: Speci men Type: BLOOD SPECIMENOrdering Facility: [facility] Address: [address] [place] [address] Performed By: #### 5 7021-8 ####[facility] LABORATORYCLIA [id number] [address] MCH (RBC) [Entitic mass] 28.1 pg Normal 26.0-34.0 [facility] Comment on above: Order Comment: Speci men Type: BLOOD SPECIMENOrdering Facility: [facility] Address: [address] [place] [address] Performed By: #### 5 7021-8 ####[facility] LABORATORYCLIA [id number] [address] MCHC (RBC) [Mass/Vol] 30.2 g/dL Low 30.5-36.0 [facility] Comment on above: Order Comment: Speci men Type: BLOOD SPECIMENOrdering Facility: [facility] Address: [address] [place] [address] Performed By: #### 5 7021-8 ####[facility] LABORATORYCLIA [id number] [address] MCV (RBC) [Entitic vol] 93.1 fL Normal 80.0-100.0 [facility] Comment on above: Order Comment: Speci men Type: BLOOD SPECIMENOrdering Facility: [facility] Address: [address] [place] [address] Performed By: #### 5 7021-8 ####[facility] LABORATORYCLIA [id number] [address] Monocytes (Bld) [#/Vol] 0.59 10*3/uL Normal <0.87 [facility] Comment on above: Order Comment: Speci men Type: BLOOD SPECIMENOrdering Facility: [facility] Address: [address] [place] [address] Performed By: #### 5 7021-8 ####[facility]ATORYCLIA [id number] [address] [place] Monocytes/100 WBC (Bld) 6.1 % Normal [facility] Comment on above: Order Comment: Speci men Type: BLOOD SPECIMENOrdering Facility: [facility] Address: [address] [place] [address] Performed By: #### 5 7021-8 ####[facility]ATORYCLIA [id number] [place] [address] [place] Neutrophils (Bld) [#/Vol] 6.75 10*3/uL Normal 1.45-7.50 [facility] Comment on above: Order Comment: Speci men Type: BLOOD SPECIMENOrdering Facility: [facility] Address: [address] [place] [address] Performed By: #### 5 7021-8 ####[facility]ORATORYCLIA [id number] [address] [place] Neutrophils/100 WBC (Bld) 69.8 % Normal [facility] Comment on above: Order Comment: Speci men Type: BLOOD SPECIMENOrdering Facility: [facility] Address: [address] [place] [address] Performed By: #### 5 7021-8 ####[facility]ORYCLIA [id number] [place] [address] [place] Nucleated RBC (Bld) [#/Vol] 10*3/uL Normal <0.01 [facility] Comment on above: Order Comment: Speci men Type: BLOOD SPECIMENOrdering Facility: [facility] Address: [address] [place] [address] Performed By: #### 5 7021-8 ####[facility] LABORATORYCLIA [id number] [address] [place] Nucleated RBC/100 WBC (Bld) [Ratio] 0.0 /100 WBC Normal [facility] Comment on above: Order Comment: Speci men Type: BLOOD SPECIMENOrdering Facility: [facility] Address: [address] [place] [address] Performed By: #### 5 7021-8 ####[facility] LABORATORYCLIA [id number] [place] [address] [place] Platelet mean volume (Bld) [Entitic vol] 11.3 fL Normal 9.0-12.7 [facility] Comment on above: Order Comment: Speci men Type: BLOOD SPECIMENOrdering Facility: [facility] Address: [address] [place] [address] Performed By: #### 5 7021-8 ####[facility] LABORATORYCLIA [id number] [place] [address] [place] Platelets (Bld) [#/Vol] 227 10*3/uL Normal 150-400 [facility] Comment on above: Order Comment: Speci men Type: BLOOD SPECIMENOrdering Facility: [facility] Address: [address] [place] [address] Performed By: #### 5 7021-8 ####[facility] LABORATORYCLIA [id number] [place] [address] [place] RBC (Bld) [#/Vol] 3.20 10*6/uL Low 4.20-6.00 [facility] Comment on above: Order Comment: Speci men Type: BLOOD SPECIMENOrdering Facility: [facility] Address: [address] [place] [address] Performed By: #### 5 7021-8 ####[facility] LABORATORYCLIA [id number] [place] [address] [place] WBC (Bld) [#/Vol] 9.67 10*3/uL Normal 3.70-11.00 [facility] Comment on above: Order Comment: Speci men Type: BLOOD SPECIMENOrdering Facility: [facility] Address: [address] [place] [address] Performed By: #### 5 7021-8 ####[facility] LABORATORYCLIA [id number] [address] OF [facility] CONSULT PROGon 07-27-2021 CONSULT PROG Normal [facility] CSF MANUAL DIFFon 07-27-2021 DIF TTL, CSF 100 cells counted Normal [facility] Comment on above: Order Comment: Speci men Type: CEREBROSPINAL FLUIDOrdering Facility: [facility] Address: [address] [place] [address] Performed By: #### L [id number], 61549-7, [id number] ####[facility]ATORYCLIA [id number] [place] [address] [place] LYMPH%, CSF 75 % Normal 50-90 [facility] Comment on above: Order Comment: Speci men Type: CEREBROSPINAL FLUIDOrdering Facility: [facility] Address: [address] [place] [address] Performed By: #### L [id number], 39445-5, [id number] ####[facility] LABORATORYCLIA [id number] [place] [address] [place] MONO%, CSF 22 % Normal 10-50 [facility] Comment on above: Order Comment: Speci men Type: CEREBROSPINAL FLUIDOrdering Facility: [facility] Address: [address] [place] [address] Performed By: #### L [id number], 25725-0, [id number] ####[facility]ATORYCLIA [id number] [place] [address] [place] NEUT%, CSF 2 % Normal 0-3 [facility] Comment on above: Order Comment: Speci men Type: CEREBROSPINAL FLUIDOrdering Facility: [facility] Address: [address] [place] [address] Performed By: #### L [id number], 01196-3, [id number] ####[facility]ATORYCLIA [id number] [address] [place] OTHER CL%, CSF 1 % Normal [facility] Comment on above: Order Comment: Speci men Type: CEREBROSPINAL FLUIDOrdering Facility: [facility] Address: [address] [place] [address] Result Comment: Path ologist review of microscopy results to follow Performed By: #### L [id number], 01379-7, [id number] ####[facility]ATORYCLIA [id number] [address] CSF PATHOLOGIST INTERP (LAB REFLEX ORDER-NO BILL)on 07-27-2021 CSF STAFF REVIEW Negative Normal [facility] Comment on above: Order Comment: Speci men Type: CEREBROSPINAL FLUIDOrdering Facility: [facility] Address: [address] [place] [address] Performed By: #### L [id number], 84179-8, [id number] ####[facility]ORATORYCLIA [id number] [address] Pathologist name Reviewed by Amador Stevens MD [facility] Comment on above: Order Comment: Speci men Type: CEREBROSPINAL FLUIDOrdering Facility: [facility] Address: [address] [place] [address] Performed By: #### L [id number], 58930-7, [id number] ####[facility] LABORATORYCLIA [id number] [address] Cell count panel (CSF)on Clarity (CSF) Clear Normal Clear [facility] Comment on above: Order Comment: Speci men Type: CEREBROSPINAL FLUIDOrdering Facility: [facility] Address: [address] [place] [address] Performed By: #### L [id number], 57284-0, [id number] ####[facility]ATORYCLIA [id number] [address] Clarity (Unsp spec) Not Indicated Normal Clear [facility] Comment on above: Order Comment: Speci men Type: CEREBROSPINAL FLUIDOrdering Facility: [facility] Address: [address] [place], [place] [address] Performed By: #### L CT5510, 08319-4, [id number] ####[facility]ATORYCLIA [id number] [address] Color (CSF) Colorless Normal Colorless [facility] Comment on above: Order Comment: Speci men Type: CEREBROSPINAL FLUIDOrdering Facility: [facility] Address: [address] [place] [address] Performed By: #### L [id number], 36195-0, [id number] ####[facility]ATORYCLIA [id number] [address] Color (Spun CSF) Not Indicated Normal Colorless [facility] Comment on above: Order Comment: Speci men Type: CEREBROSPINAL FLUIDOrdering Facility: [facility] Address: [address] [place] [address] Performed By: #### L [id number], 55186-7, [id number] ####[facility]ATORYCLIA [id number] [address] CSF TUBE [employer] Normal [facility] Comment on above: Order Comment: Speci men Type: CEREBROSPINAL FLUIDOrdering Facility: [facility] Address: [address] [place] [address] Performed By: #### L [id number], 34566-8, [id number] ####[facility]ATORYCLIA [id number] [address] [place] RBC Manual cnt (CSF) [#/Vol] 39 cells/uL High 0-5 [facility] Comment on above: Order Comment: Speci men Type: CEREBROSPINAL FLUIDOrdering Facility: [facility] Address: [address] [place] [address] Performed By: #### L [id number], 68770-8, [id number] ####[facility]ATORYCLIA [id number] [address] [place] WBC Manual cnt (CSF) [#/Vol] 14 cells/uL High 0-5 [facility] Comment on above: Order Comment: Speci men Type: CEREBROSPINAL FLUIDOrdering Facility: [facility] Address: [address] [place] [address] Performed By: #### L [id number], 80833-0, [id number] ####[facility] LABORATORYCLIA [id number] [place] [address] [place] Glucose CSF-mCncon Glucose (CSF) [Mass/Vol] 64 mg/dL Normal 40-70 [facility] Comment on above: Order Comment: Speci men Type: CEREBROSPINAL FLUIDOrdering Facility: [facility] Address: [address] [place] [address] Result Comment: Lumb ar CSF glucose values of healthy patients are approximately 60% of the plasma values and must always be compared with a concurrently measured plasma value for adequate clinical interpretation.References: 1. Glucose HK (GLUC3) [package insert V 12.0 [place]]. [employer], [place], [place]. September 2015. 2. Michelle Moore, Loki HGarfield (2015). Chapter 7: Glucose and Lactate. FGarfield Alcocer al.(eds.), Cerebrospinal Fluid in Clinical Neurology. [place]: [employer]. Performed By: #### 2 342-4, 2880-3 ####[facility] LABORATORYCLIA [id number] [place] [address] [place] NUTRITIONon 07-27-2021 NUTRITION Normal [facility] Prot CSF-mCncon 07-27-2021 Protein (CSF) [Mass/Vol] 58 mg/dL High 15-45 [facility] Comment on above: Order Comment: Speci men Type: CEREBROSPINAL FLUIDOrdering Facility: [facility] Address: [address] [place] [address] Performed By: #### 2 342-4, 2880-3 ####[facility] LABORATORYCLIA [id number] [place] [address] [place] aPTT PPPon 07-27-2021 aPTT Coag (PPP) [Time] 68.4 s High 23.0-32.4 [facility] Comment on above: Order Comment: Speci men Type: BLOOD SPECIMENOrdering Facility: [facility] Address: [address] [place] [address] Performed By: #### 1 4979-9 ####[facility] LABORATORYCLIA [id number] [address] aPTT Coag (PPP) [Time] 51.3 s High 23.0-32.4 [facility] Comment on above: Order Comment: Speci men Type: BLOOD SPECIMENOrdering Facility: [facility] Address: [address] [place] [address] Performed By: #### 1 4979-9 ####[facility] LABORATORYCLIA [id number] [address] ALLIED HEALTHon 07-26-2021 ALLIED HEALTH HNO ID: [id number] Author: Stephanie Maldonado, sled maker Service: Radiology Author Type: Crime Scene Analyst Type: Allied Health Filed: 07/26/2021 4:10 PM Note Text: Spoke with nurse. Pt getting new EVD today. Try tomorrow. Normal [facility] Bacteria CSF Culton 07-27-19 22 Bacteria identified Cx Nom (CSF) Abnormal [facility] Comment on above: Performed By: #### 6 06-4 ####[facility] LABORATORYCLIA [id number] [address] [place] Basic metabolic 2000 panelon 07-26-2021 Anion gap [Moles/Vol] 6 mmol/L Low 9-18 [facility] Comment on above: Order Comment: Speci men Type: BLOOD SPECIMENOrdering Facility: [facility] Address: [address] [place] [address] Performed By: #### 2 4321-2 ####[facility] LABORATORYCLIA [id number] [address] [place] Calcium [Mass/Vol] 9.2 mg/dL Normal 8.5-10.2 [facility] Comment on above: Order Comment: Speci men Type: BLOOD SPECIMENOrdering Facility: [facility] Address: [address] [address] Performed By: #### 2 4321-2 ####[facility] LABORATORYCLIA [id number] [address] [place] Chloride [Moles/Vol] 99 mmol/L Normal 97-105 [facility] Comment on above: Order Comment: Speci men Type: BLOOD SPECIMENOrdering Facility: [facility] Address: [address] [place] [address] Performed By: #### 2 4321-2 ####[facility] LABORATORYCLIA [id number] [address] [place] CO2 [Moles/Vol] 32 mmol/L High 22-30 [facility] Comment on above: Order Comment: Speci men Type: BLOOD SPECIMENOrdering Facility: [facility] Address: [address] [place] [address] Performed By: #### 2 4321-2 ####[facility] LABORATORYCLIA [id number] [address] STATES OF [facility] Creatinine [Mass/Vol] 0.74 mg/dL Normal 0.73-1.22 [facility] Comment on above: Order Comment: Speci men Type: BLOOD SPECIMENOrdering Facility: [facility] Address: [address] [place] [address] Performed By: #### 2 4321-2 ####[facility] LABORATORYCLIA [id number] [address] ESTIMATED GLOMERULAR FILTRATION RATE 98 mL/min/1.73m??? Normal >=60 [facility] Comment on above: Order Comment: Speci men Type: BLOOD SPECIMENOrdering Facility: [facility] Address: [address] [place] [address] Result Comment: Luzmaria mated Glomerular Filtration Rate [...] #### 2 4321-2 ####[facility] LABORATORYCLIA [id number] [place] [address] [place] Glucose [Mass/Vol] 126 mg/dL High 74-99 [facility] Comment on above: Order Comment: Shira feldman Type: BLOOD SPECIMENOrdering Facility: [facility] Address: [address] [place] [address] Result Comment: The [place] Diabetes Association (ADA) provides guidance for cutoff [...] Standards of Medical Care in Diabetes 2016, [place] [employer]. Diabetes Care. 2016.39(Suppl 1). Performed By: #### 2 4321-2 ####[facility]ORATORYCLIA [id number] [place] [address] [place] Potassium [Moles/Vol] 4.2 mmol/L Normal 3.7-5.1 [facility] Comment on above: Order Comment: Shira feldman Type: BLOOD SPECIMENOrdering Facility: [facility] Address: [address] [address] Performed By: #### 2 4321-2 ####[facility] LABORATORYCLIA [id number] [place] [address] [place] Sodium [Moles/Vol] 137 mmol/L Normal 136-144 [facility] Comment on above: Order Comment: Shira feldman Type: BLOOD SPECIMENOrdering Facility: [facility] Address: [address] [address] Performed By: #### 2 4321-2 ####[facility] LABORATORYCLIA [id number] [place] [address] [place] Urea nitrogen [Mass/Vol] 36 mg/dL High 9-24 [facility] Comment on above: Order Comment: Speci men Type: BLOOD SPECIMENOrdering Facility: [facility] Address: [address] [place] [address] Performed By: #### 2 4321-2 ####[facility] LABORATORYCLIA [id number] [address] [place] CBC W Auto Differential pane l (Bld)on 07-26-2021 Basophils (Bld) [#/Vol] 0.04 10*3/uL Normal <0.11 [facility] Comment on above: Order Comment: Speci men Type: BLOOD SPECIMENOrdering Facility: [facility] Address: [address] [place] [address] Performed By: #### 5 7021-8 ####[facility]ORATORYCLIA [id number] [address] [place] Basophils/100 WBC (Bld) 0.4 % Normal [facility] Comment on above: Order Comment: Speci men Type: BLOOD SPECIMENOrdering Facility: [facility] Address: [address] [place] [address] Performed By: #### 5 7021-8 ####[facility] LABORATORYCLIA [id number] [address] Differential cell count method Nom (Bld) Auto Normal [facility] Comment on above: Order Comment: Speci men Type: BLOOD SPECIMENOrdering Facility: [facility] Address: [address] [place] [address] Performed By: #### 5 7021-8 ####[facility]ORATORYCLIA [id number] [place] [address] [place] Eosinophils (Bld) [#/Vol] 0.63 10*3/uL High <0.46 [facility] Comment on above: Order Comment: Speci men Type: BLOOD SPECIMENOrdering Facility: [facility] Address: [address] [place] [address] Performed By: #### 5 7021-8 ####[facility] LABORATORYCLIA [id number] [address] Eosinophils/100 WBC (Bld) 5.8 % Normal [facility] Comment on above: Order Comment: Speci men Type: BLOOD SPECIMENOrdering Facility: [facility] Address: [address] [place] [address] Performed By: #### 5 7021-8 ####[facility] LABORATORYCLIA [id number] [address] Erythrocyte distribution width (RBC) [Ratio] 16.8 % High 11.5-15.0 [facility] Comment on above: Order Comment: Speci men Type: BLOOD SPECIMENOrdering Facility: [facility] Address: [address] [place] [address] Performed By: #### 5 7021-8 ####[facility]ORATORYCLIA [id number] [address] Hematocrit (Bld) [Volume fraction] 31.2 % Low 39.0-51.0 [facility] Comment on above: Order Comment: Speci men Type: BLOOD SPECIMENOrdering Facility: [facility] Address: [address] [place] [address] Performed By: #### 5 7021-8 ####[facility] LABORATORYCLIA [id number] [address] Hemoglobin (Bld) [Mass/Vol] 9.1 g/dL Low 13.0-17.0 [facility] Comment on above: Order Comment: Speci men Type: BLOOD SPECIMENOrdering Facility: [facility] Address: [address] [place] [address] Performed By: #### 5 7021-8 ####[facility]ORATORYCLIA [id number] [address] IMMATURE GRAN % 0.6 % Normal [facility] Comment on above: Order Comment: Speci men Type: BLOOD SPECIMENOrdering Facility: [facility] Address: [address] [place] [address] Performed By: #### 5 7021-8 ####[facility]ORATORYCLIA [id number] [address] STATES OF [facility] IMMATURE GRAN ABS 0.07 k/uL Normal <0.10 [facility] Comment on above: Order Comment: Speci men Type: BLOOD SPECIMENOrdering Facility: [facility] Address: [address] [place] [address] Performed By: #### 5 7021-8 ####[facility]ORATORYCLIA [id number] [address] Lymphocytes (Bld) [#/Vol] 2.16 10*3/uL Normal 1.00-4.00 [facility] Comment on above: Order Comment: Speci men Type: BLOOD SPECIMENOrdering Facility: [facility] Address: [address] [place] [address] Performed By: #### 5 7021-8 ####[facility]ORATORYCLIA [id number] [address] Lymphocytes/100 WBC (Bld) 20.0 % Normal [facility] Comment on above: Order Comment: Speci men Type: BLOOD SPECIMENOrdering Facility: [facility] Address: [address] [place] [address] Performed By: #### 5 7021-8 ####[facility]ORATORYCLIA [id number] [place] [address] [place] MCH (RBC) [Entitic mass] 27.7 pg Normal 26.0-34.0 [facility] Comment on above: Order Comment: Speci men Type: BLOOD SPECIMENOrdering Facility: [facility] Address: [address] [place] [address] Performed By: #### 5 7021-8 ####[facility]ORATORYCLIA [id number] [address] STATES OF [facility] MCHC (RBC) [Mass/Vol] 29.2 g/dL Low 30.5-36.0 [facility] Comment on above: Order Comment: Speci men Type: BLOOD SPECIMENOrdering Facility: [facility] Address: [address] [place] [address] Performed By: #### 5 7021-8 ####[facility]ORATORYCLIA [id number] [address] [place] MCV (RBC) [Entitic vol] 95.1 fL Normal 80.0-100.0 [facility] Comment on above: Order Comment: Speci men Type: BLOOD SPECIMENOrdering Facility: [facility] Address: [address] [place] [address] Performed By: #### 5 7021-8 ####[facility]ORATORYCLIA [id number] [address] Monocytes (Bld) [#/Vol] 0.63 10*3/uL Normal <0.87 [facility] Comment on above: Order Comment: Speci men Type: BLOOD SPECIMENOrdering Facility: [facility] Address: [address] [place] [address] Performed By: #### 5 7021-8 ####[facility]ORATORYCLIA [id number] [address] Monocytes/100 WBC (Bld) 5.8 % Normal [facility] Comment on above: Order Comment: Speci men Type: BLOOD SPECIMENOrdering Facility: [facility] Address: [address] [place] [address] Performed By: #### 5 7021-8 ####[facility]ORATORYCLIA [id number] [address] [place] Neutrophils (Bld) [#/Vol] 7.25 10*3/uL Normal 1.45-7.50 [facility] Comment on above: Order Comment: Speci men Type: BLOOD SPECIMENOrdering Facility: [facility] Address: [address] [address] Performed By: #### 5 7021-8 ####[facility]ORATORYCLIA [id number] [address] Neutrophils/100 WBC (Bld) 67.4 % Normal [facility] Comment on above: Order Comment: Speci men Type: BLOOD SPECIMENOrdering Facility: [facility] Address: [address] [place] [address] Performed By: #### 5 7021-8 ####[facility]ORATORYCLIA [id number] [address] [place] Nucleated RBC (Bld) [#/Vol] 10*3/uL Normal <0.01 [facility] Comment on above: Order Comment: Speci men Type: BLOOD SPECIMENOrdering Facility: [facility] Address: [address] [place] [address] Performed By: #### 5 7021-8 ####[facility]ORATORYCLIA [id number] [address] [place] Nucleated RBC/100 WBC (Bld) [Ratio] 0.0 /100 WBC Normal [facility] Comment on above: Order Comment: Speci men Type: BLOOD SPECIMENOrdering Facility: [facility] Address: [address] [place] [address] Performed By: #### 5 7021-8 ####[facility]ORATORYCLIA [id number] [place] [address] [place] Platelet mean volume (Bld) [Entitic vol] 11.2 fL Normal 9.0-12.7 [facility] Comment on above: Order Comment: Speci men Type: BLOOD SPECIMENOrdering Facility: [facility] Address: [address] [place] [address] Performed By: #### 5 7021-8 ####[facility]ORATORYCLIA [id number] [place] [address] [place] Platelets (Bld) [#/Vol] 245 10*3/uL Normal 150-400 [facility] Comment on above: Order Comment: Speci men Type: BLOOD SPECIMENOrdering Facility: [facility] Address: [address] [place] [address] Performed By: #### 5 7021-8 ####[facility]ORATORYCLIA [id number] [address] STATES OF [facility] RBC (Bld) [#/Vol] 3.28 10*6/uL Low 4.20-6.00 [facility] Comment on above: Order Comment: Speci men Type: BLOOD SPECIMENOrdering Facility: [facility] Address: [address] [place] [address] Performed By: #### 5 7021-8 ####[facility]ORATORYCLIA [id number] [address] OF [facility] WBC (Bld) [#/Vol] 10.78 10*3/uL Normal 3.70-11.00 [facility] Comment on above: Order Comment: Speci men Type: BLOOD SPECIMENOrdering Facility: [facility] Address: [address] [place] [address] Performed By: #### 5 7021-8 ####[facility]ORATORYCLIA [id number] [address] CSF MANUAL DIFFon 07-26-2021 DIF TTL, CSF 100 cells counted Normal [facility] Comment on above: Order Comment: Speci men Type: CEREBROSPINAL FLUIDOrdering Facility: [facility] Address: [address] [place] [address] Performed By: #### 3 4563-7, [id number], [id number] ####[facility]ORATORYCLIA [id number] [address] LYMPH%, CSF 26 % Low 50-90 [facility] Comment on above: Order Comment: Speci men Type: CEREBROSPINAL FLUIDOrdering Facility: [facility] Address: [address] [place] [address] Performed By: #### 3 4563-7, [id number], [id number] ####[facility]ORATORYCLIA [id number] [place] [address] [place] MACRO%, CSF 10 % High <1 [facility] Comment on above: Order Comment: Speci men Type: CEREBROSPINAL FLUIDOrdering Facility: [facility] Address: [address] [place] [address] Performed By: #### 3 4563-7, [id number], [id number] ####[facility]ORATORYCLIA [id number] [place] [address] [place] MONO%, CSF 20 % Normal 10-50 [facility] Comment on above: Order Comment: Speci men Type: CEREBROSPINAL FLUIDOrdering Facility: [facility] Address: [address] [place] [address] Performed By: #### 3 4563-7, [id number], [id number] ####[facility]ORATORYCLIA [id number] [place] [address] [place] NEUT%, CSF 40 % High 0-3 [facility] Comment on above: Order Comment: Speci men Type: CEREBROSPINAL FLUIDOrdering Facility: [facility] Address: [address] [place] [address] Performed By: #### 3 4563-7, [id number], [id number] ####[facility]ATORYCLIA [id number] [address] [place] OTHER CL%, CSF 2 % Normal [facility] Comment on above: Order Comment: Speci men Type: CEREBROSPINAL FLUIDOrdering Facility: [facility] Address: [address] [place] [address] Result Comment: Path review to follow. Performed By: #### 3 4563-7, [id number], [id number] ####[facility]ATORYCLIA [id number] [address] [place] REAC LYMPH %, CSF 2 % Normal [facility] Comment on above: Order Comment: Speci men Type: CEREBROSPINAL FLUIDOrdering Facility: [facility] Address: [address] [place] [address] Performed By: #### 3 4563-7, [id number], [id number] ####[facility]ORATORYCLIA [id number] [address] CSF PATHOLOGIST INTERP (LAB REFLEX ORDER-NO BILL)on 07-26-2021 CSF STAFF REVIEW Negative for maligna nt cells. Rare bacteria present, cocci in pairs and chains. Correlation with CSF cultures is recommended. Normal [facility] Comment on above: Order Comment: Speci men Type: CEREBROSPINAL FLUIDOrdering Facility: [facility] Address: [address] [place] [address] Performed By: #### 3 4563-7, [id number], [id number] ####[facility]ORATORYCLIA [id number] [address] Pathologist name Reviewed by Amador Stevens MD [facility] Comment on above: Order Comment: Speci men Type: CEREBROSPINAL FLUIDOrdering Facility: [facility] Address: [address] [place] [address] Performed By: #### 3 4563-7, [id number], [id number] ####[facility]ORATORYCLIA [id number] [address] Cell count panel (CSF)on Clarity (CSF) Slightly Cloudy Abnormal Clear [facility] Comment on above: Order Comment: Speci men Type: CEREBROSPINAL FLUIDOrdering Facility: [facility] Address: [address] [place] [address] Performed By: #### 3 4563-7, [id number], [id number] ####[facility]ATORYCLIA [id number] [address] [place] Clarity (Unsp spec) Clear Normal Clear [facility] Comment on above: Order Comment: Speci men Type: CEREBROSPINAL FLUIDOrdering Facility: [facility] Address: [address] [place] [address] Performed By: #### 3 4563-7, [id number], [id number] ####[facility]ORATORYCLIA [id number] [address] OF [facility] Color (CSF) Colorless Normal Colorless [facility] Comment on above: Order Comment: Speci men Type: CEREBROSPINAL FLUIDOrdering Facility: [facility] Address: [address] [address] Performed By: #### 3 4563-7, [id number], [id number] ####[facility]ATORYCLIA [id number] [address] [place] Color (Spun CSF) Not Indicated Normal Colorless [facility] Comment on above: Order Comment: Speci men Type: CEREBROSPINAL FLUIDOrdering Facility: [facility] Address: [address] [place] [address] Performed By: #### 3 4563-7, [id number], [id number] ####[facility] LABORATORYCLIA [id number] [address] CSF TUBE [employer]BER [employer] Normal [facility] Comment on above: Order Comment: Speci men Type: CEREBROSPINAL FLUIDOrdering Facility: [facility] Address: [address] [address] Performed By: #### 3 4563-7, [id number], [id number] ####[facility] LABORATORYCLIA [id number] [address] [place] RBC Manual cnt (CSF) [#/Vol] 1 cells/uL Normal 0-5 [facility] Comment on above: Order Comment: Speci men Type: CEREBROSPINAL FLUIDOrdering Facility: [facility] Address: [address] [address] Performed By: #### 3 4563-7, [id number], [id number] ####[facility]ATORYCLIA [id number] [address] WBC Manual cnt (CSF) [#/Vol] 50 cells/uL High 0-5 [facility] Comment on above: Order Comment: Speci men Type: CEREBROSPINAL FLUIDOrdering Facility: [facility] Address: [address] [place] [address] Performed By: #### 3 4563-7, [id number], [id number] ####[facility]ATORYCLIA [id number] [place] [address] [place] Glucose CSF-mCncon Glucose (CSF) [Mass/Vol] 64 mg/dL Normal 40-70 [facility] Comment on above: Order Comment: Speci men Type: CEREBROSPINAL FLUIDOrdering Facility: [facility] Address: [address] [place] [address] Result Comment: Lumb ar CSF glucose values of healthy patients are approximately 60% of the plasma values and must always be compared with a concurrently measured plasma value for adequate clinical interpretation.References: 1. Glucose HK (GLUC3) [package insert V 12.0 [place]]. [employer], [place], [place]. September 2015. 2. Michelle Moore, Loki H. (2015). Chapter 7: Glucose and Lactate. Marianela Alcocer al.(eds.), Cerebrospinal Fluid in Clinical Neurology. [place]: [employer]. Performed By: #### 2 880-3, 2342-4 ####[facility]ORATORYCLIA [id number] [place] [address] [place] Magnesium [facility] Magnesium [Mass/Vol] 2.3 mg/dL Normal 1.7-2.3 [facility] Comment on above: Order Comment: Speci men Type: BLOOD SPECIMENOrdering Facility: [facility] Address: [address] [place] [address] Performed By: #### 1 9123-9, 2777-1, 3016-3 ####[facility]ORATORYCLIA [id number] [place] [address] [place] NURSING PROGon 07-26-2021 NURSING PROG Normal [facility] Phosphate SerPl-mCncon 07-26 Phosphate [Mass/Vol] 2.6 mg/dL Low 2.7-4.8 [facility] Comment on above: Order Comment: Speci men Type: BLOOD SPECIMENOrdering Facility: [facility] Address: [address] [place] [address] Performed By: #### 1 9123-9, 2777-1, 3016-3 ####[facility]ORATORYCLIA [id number] [place] [address] [place] Prot CSF-mCncon 07-26-2021 Protein (CSF) [Mass/Vol] 64 mg/dL High 15-45 [facility] Comment on above: Order Comment: Speci men Type: CEREBROSPINAL FLUIDOrdering Facility: [facility] Address: [address] [place] [address] Performed By: #### 2 880-3, 2342-4 ####[facility]ORATORYCLIA [id number] [address] THERAPY NTon 07-26-2021 THERAPY NT Normal [facility] TSH SerPl-aCncon 07-26-2021 TSH Qn 1.470 m[IU]/L Normal 0.270-4.200 [facility] Comment on above: Order Comment: Speci men Type: BLOOD SPECIMENOrdering Facility: [facility] Address: [address] [place] [address] Performed By: #### 1 9123-9, 2777-1, 3016-3 ####[facility]ATORYCLIA [id number] [address] [place] VITAMIN B12 BLOODon 07-27-19 Cobalamin (Vitamin B12) [Mass/Vol] 934 pg/mL Normal 232-1,245 [facility] Comment on above: Order Comment: Speci men Type: BLOOD SPECIMENOrdering Facility: [facility] Address: [address] [place] [address] Performed By: #### B 12 ####[facility]ORATORYCLIA [id number] [address] [place] aPTT PPPon 07-26-2021 aPTT Coag (PPP) [Time] 53.6 s High 23.0-32.4 [facility] Comment on above: Order Comment: Speci men Type: BLOOD SPECIMENOrdering Facility: [facility] Address: [address] [place] [address] Performed By: #### 1 4979-9 ####[facility]ATORYCLIA [id number] [address] aPTT Coag (PPP) [Time] 44.9 s High 23.0-32.4 [facility] Comment on above: Order Comment: Speci men Type: BLOOD SPECIMENOrdering Facility: [facility] Address: [address] [place] [address] Performed By: #### 1 4979-9 ####[facility]ORATORYCLIA [id number] [address] ALLIED HEALTHon 07-25-2021 ALLIED HEALTH HNO ID: [id number] Author: RT Rajwinder(R) Service: Radiology Author Type: Technologist Type: Allied Health Filed: 07/25/2021 1:37 PM Note Text: Called floor for MRI screening form [id number] Normal [facility] Bacteria Bld Culton 07-26-19 Bacteria identified Cx Nom (Bld) CULTURE, BLOOD: No growth 5 days Normal [facility] Comment on above: Performed By: #### 6 00-7 ####[facility]ATORYCLIA [id number] [address] Bacteria identified Cx Nom (Bld) CULTURE, BLOOD: No growth 5 days Normal [facility] Comment on above: Performed By: #### 6 00-7 ####[facility]ORATORYCLIA [id number] [address] CASE MANAGEMon 07-25-2021 CASE MANAGEM Normal [facility] CBC W Auto Differential pane l (Bld)on 07-25-2021 Basophils (Bld) [#/Vol] 0.06 10*3/uL Normal <0.11 [facility] Comment on above: Order Comment: Speci men Type: BLOOD SPECIMENOrdering Facility: [facility] Address: [address] [address] Performed By: #### 5 7021-8 ####[facility]ATORYCLIA [id number] [address] Basophils/100 WBC (Bld) 0.6 % Normal [facility] Comment on above: Order Comment: Speci men Type: BLOOD SPECIMENOrdering Facility: [facility] Address: [address] [place] [address] Performed By: #### 5 7021-8 ####[facility]ATORYCLIA [id number] [address] Differential cell count method Nom (Bld) Auto Normal [facility] Comment on above: Order Comment: Speci men Type: BLOOD SPECIMENOrdering Facility: [facility] Address: [address] [place] [address] Performed By: #### 5 7021-8 ####[facility]ATORYCLIA [id number] [address] [place] Eosinophils (Bld) [#/Vol] 0.26 10*3/uL Normal <0.46 [facility] Comment on above: Order Comment: Speci men Type: BLOOD SPECIMENOrdering Facility: [facility] Address: [address] [place] [address] Performed By: #### 5 7021-8 ####[facility]ORYCLIA [id number] [address] Eosinophils/100 WBC (Bld) 2.5 % Normal [facility] Comment on above: Order Comment: Speci men Type: BLOOD SPECIMENOrdering Facility: [facility] Address: [address] [place] [address] Performed By: #### 5 7021-8 ####[facility]ORYCLIA [id number] [address] [place] Erythrocyte distribution width (RBC) [Ratio] 16.9 % High 11.5-15.0 [facility] Comment on above: Order Comment: Speci men Type: BLOOD SPECIMENOrdering Facility: [facility] Address: [address] [place] [address] Performed By: #### 5 7021-8 ####[facility]ORATORYCLIA [id number] [address] Hematocrit (Bld) [Volume fraction] 29.6 % Low 39.0-51.0 [facility] Comment on above: Order Comment: Speci men Type: BLOOD SPECIMENOrdering Facility: [facility] Address: [address] [place] [address] Performed By: #### 5 7021-8 ####[facility]ATORYCLIA [id number] [address] Hemoglobin (Bld) [Mass/Vol] 8.8 g/dL Low 13.0-17.0 [facility] Comment on above: Order Comment: Speci men Type: BLOOD SPECIMENOrdering Facility: [facility] Address: [address] [place] [address] Performed By: #### 5 7021-8 ####[facility]ATORYCLIA [id number] [address] IMMATURE GRAN % 0.6 % Normal [facility] Comment on above: Order Comment: Speci men Type: BLOOD SPECIMENOrdering Facility: [facility] Address: [address] [place] [address] Performed By: #### 5 7021-8 ####[facility] LABORATORYCLIA [id number] [address] IMMATURE GRAN ABS 0.06 k/uL Normal <0.10 [facility] Comment on above: Order Comment: Speci men Type: BLOOD SPECIMENOrdering Facility: [facility] Address: [address] [place] [address] Performed By: #### 5 7021-8 ####[facility] LABORATORYCLIA [id number] [place] [address] [place] Lymphocytes (Bld) [#/Vol] 2.15 10*3/uL Normal 1.00-4.00 [facility] Comment on above: Order Comment: Speci men Type: BLOOD SPECIMENOrdering Facility: [facility] Address: [address] [place] [address] Performed By: #### 5 7021-8 ####[facility] LABORATORYCLIA [id number] [address] [place] Lymphocytes/100 WBC (Bld) 20.7 % Normal [facility] Comment on above: Order Comment: Speci men Type: BLOOD SPECIMENOrdering Facility: [facility] Address: [address] [place] [address] Performed By: #### 5 7021-8 ####[facility] LABORATORYCLIA [id number] [address] [place] MCH (RBC) [Entitic mass] 28.2 pg Normal 26.0-34.0 [facility] Comment on above: Order Comment: Speci men Type: BLOOD SPECIMENOrdering Facility: [facility] Address: [address] [place] [address] Performed By: #### 5 7021-8 ####[facility] LABORATORYCLIA [id number] [address] [place] MCHC (RBC) [Mass/Vol] 29.7 g/dL Low 30.5-36.0 [facility] Comment on above: Order Comment: Speci men Type: BLOOD SPECIMENOrdering Facility: [facility] Address: [address] [place] [address] Performed By: #### 5 7021-8 ####[facility] LABORATORYCLIA [id number] [address] [place] MCV (RBC) [Entitic vol] 94.9 fL Normal 80.0-100.0 [facility] Comment on above: Order Comment: Speci men Type: BLOOD SPECIMENOrdering Facility: [facility] Address: [address] [place] [address] Performed By: #### 5 7021-8 ####[facility]ORATORYCLIA [id number] [place] [address] [place] Monocytes (Bld) [#/Vol] 0.62 10*3/uL Normal <0.87 [facility] Comment on above: Order Comment: Speci men Type: BLOOD SPECIMENOrdering Facility: [facility] Address: [address] [place] [address] Performed By: #### 5 7021-8 ####[facility] LABORATORYCLIA [id number] [address] [place] Monocytes/100 WBC (Bld) 6.0 % Normal [facility] Comment on above: Order Comment: Speci men Type: BLOOD SPECIMENOrdering Facility: [facility] Address: [address] [place] [address] Performed By: #### 5 7021-8 ####[facility] LABORATORYCLIA [id number] [address] [place] Neutrophils (Bld) [#/Vol] 7.25 10*3/uL Normal 1.45-7.50 [facility] Comment on above: Order Comment: Speci men Type: BLOOD SPECIMENOrdering Facility: [facility] Address: [address] [place] [address] Performed By: #### 5 7021-8 ####[facility]ORATORYCLIA [id number] [address] [place] Neutrophils/100 WBC (Bld) 69.6 % Normal [facility] Comment on above: Order Comment: Speci men Type: BLOOD SPECIMENOrdering Facility: [facility] Address: [address] [place] [address] Performed By: #### 5 7021-8 ####[facility]ORATORYCLIA [id number] [place] [address] [place] Nucleated RBC (Bld) [#/Vol] 10*3/uL Normal <0.01 [facility] Comment on above: Order Comment: Speci men Type: BLOOD SPECIMENOrdering Facility: [facility] Address: [address] [place] [address] Performed By: #### 5 7021-8 ####[facility] LABORATORYCLIA [id number] [address] Nucleated RBC/100 WBC (Bld) [Ratio] 0.0 /100 WBC Normal [facility] Comment on above: Order Comment: Speci men Type: BLOOD SPECIMENOrdering Facility: [facility] Address: [address] [place] [address] Performed By: #### 5 7021-8 ####[facility] LABORATORYCLIA [id number] [address] [place] Platelet mean volume (Bld) [Entitic vol] 11.3 fL Normal 9.0-12.7 [facility] Comment on above: Order Comment: Speci men Type: BLOOD SPECIMENOrdering Facility: [facility] Address: [address] [place] [address] Performed By: #### 5 7021-8 ####[facility] LABORATORYCLIA [id number] [address] [place] Platelets (Bld) [#/Vol] 243 10*3/uL Normal 150-400 [facility] Comment on above: Order Comment: Speci men Type: BLOOD SPECIMENOrdering Facility: [facility] Address: [address] [place], [place] [address] Performed By: #### 5 7021-8 ####[facility] LABORATORYCLIA [id number] [address] [place] RBC (Bld) [#/Vol] 3.12 10*6/uL Low 4.20-6.00 [facility] Comment on above: Order Comment: Speci men Type: BLOOD SPECIMENOrdering Facility: [facility] Address: [address] [place] [address] Performed By: #### 5 7021-8 ####[facility] LABORATORYCLIA [id number] [address] [place] WBC (Bld) [#/Vol] 10.40 10*3/uL Normal 3.70-11.00 [facility] Comment on above: Order Comment: Speci men Type: BLOOD SPECIMENOrdering Facility: [facility] Address: [address] [place] [address] Performed By: #### 5 7021-8 ####[facility] LABORATORYCLIA [id number] [place] [address] [place] CONSULT PROGon 07-25-2021 CONSULT PROG Normal [facility] MYCOPLASMA PNEUM IGMon 07-25 M. PNEUMO IGM, QUAL Negative Normal Negative [facility] Comment on above: Order Comment: Speci men Type: BLOOD SPECIMENOrdering Facility: [facility] Address: [address] [place] [address] Result Comment: Myco plasma pneumoniae IgM antibody test is used as an aid in diagnosis of recent infection with M. pneumoniae. It may occasionally remain elevated for extended periods after an acute infection. Cannot exclude recent infection if the specimen collected 7-10 days after onset of signs and symptoms. Clinical correlation is required. Performed By: #### M YCOPM ####[facility] LABCLIA [id number] [facility] [id number] [address] [place] NURSING PROGon 07-25-2021 NURSING PROG Normal [facility] THERAPY NTon 07-25-2021 THERAPY NT Normal [facility] THERAPY NT Normal [facility] aPTT PPPon 07-25-2021 aPTT Coag (PPP) [Time] 62.6 s High 23.0-32.4 [facility] Comment on above: Order Comment: Speci men Type: BLOOD SPECIMENOrdering Facility: [facility] Address: [address] [place] [address] Performed By: #### 1 4979-9 ####[facility] LABORATORYCLIA [id number] [place] [address] [place] Bacteria Ur Culton Bacteria identified Cx Nom (U) CULTURE, URINE: No growth (<100 CFU/ml) Normal [facility] Comment on above: Performed By: #### 6 30-4 ####[facility] LABORATORYCLIA [id number] [address] STATES OF [facility] Basic metabolic 2000 panelon 07-24-2021 Anion gap [Moles/Vol] 13 mmol/L Normal 9-18 [facility] Comment on above: Order Comment: Speci men Type: BLOOD SPECIMENOrdering Facility: [facility] Address: [address] [place] [address] Performed By: #### 1 9123-9, PROCAL, 2777-1, 76994-2 ####[facility] LABORATORYCLIA [id number] [address] [place] Calcium [Mass/Vol] 9.5 mg/dL Normal 8.5-10.2 [facility] Comment on above: Order Comment: Speci men Type: BLOOD SPECIMENOrdering Facility: [facility] Address: [address] [place] [address] Performed By: #### 1 9123-9, PROCAL, 2777-1, 95124-7 ####[facility] LABORATORYCLIA [id number] [address] [place] Chloride [Moles/Vol] 102 mmol/L Normal 97-105 [facility] Comment on above: Order Comment: Speci men Type: BLOOD SPECIMENOrdering Facility: [facility] Address: [address] [place] [address] Performed By: #### 1 9123-9, PROCAL, 2777-1, 90451-4 ####[facility] LABORATORYCLIA [id number] [place] [address] [place] CO2 [Moles/Vol] 28 mmol/L Normal 22-30 [facility] Comment on above: Order Comment: Speci men Type: BLOOD SPECIMENOrdering Facility: [facility] Address: [address] [place] [address] Performed By: #### 1 9123-9, PROCAL, 2777-1, 93516-6 ####[facility]ITALCLIA [id number] [place], [place] [address] [place] [address] [place] [facility] Creatinine [Mass/Vol] 0.86 mg/dL Normal 0.73-1.22 [facility] Comment on above: Order Comment: Shira feldman Type: BLOOD SPECIMENOrdering Facility: [facility] Address: [address] [place] [address] Performed By: #### 1 9123-9, [facility], 2776-, 08910-3 ####[facility] HOSPITALIA [id number] [address] STATES OF [facility] ESTIMATED GLOMERULAR FILTRATION RATE 94 mL/min/1.73m??? Normal >=60 [facility] Comment on above: Order Comment: Shira feldman Type: BLOOD SPECIMENOrdering Facility: [facility] Address: [address] [place] [address] Result Comment: Luzmaria mated Glomerular Filtration Rate [...] actual GFR. Performed By: #### 1 9123-9, [facility], 277-1, 99507-4 ####[facility] HOSPITALIA [id number] [address] STATES OF [facility] Glucose [Mass/Vol] 148 mg/dL High 74-99 [facility] Comment on above: Order Comment: Shira francia Type: BLOOD SPECIMENOrdering Facility: [facility] Address: [address] [address] Result Comment: The [place] [employer] (ADA) provides guidance for cutoff [...] Standards of Medical Care in Diabetes 2016, [place] [employer]. Diabetes Care. 2016.39(Suppl 1). Performed By: #### 1 9123-9, PROCAL, 7-1, 64403-7 ####[facility] LABORATORYCLIA [id number] [place] [address] [place] Potassium [Moles/Vol] 4.0 mmol/L Normal 3.7-5.1 [facility] Comment on above: Order Comment: Shira feldman Type: BLOOD SPECIMENOrdering Facility: [facility] Address: [address] [place] [address] Performed By: #### 1 9123-9, [facility], 2776-, 98365-9 ####[facility]ITALCLIA [id number] [address] STATES OF [facility] Sodium [Moles/Vol] 143 mmol/L Normal 136-144 [facility] Comment on above: Order Comment: Shira feldman Type: BLOOD SPECIMENOrdering Facility: [facility] Address: [address] [place] [address] Performed By: #### 1 9123-9, [facility], 2776-, 32739-5 ####[facility] LABORATORYCLIA [id number] [place] [address] [place] Urea nitrogen [Mass/Vol] 38 mg/dL High 9-24 [facility] Comment on above: Order Comment: Shira feldman Type: BLOOD SPECIMENOrdering Facility: [facility] Address: [address] [place] [address] Performed By: #### 1 9123-9, PROCNE, 7-1, 40953-1 ####[facility]ORATORYCLIA [id number] [place] [address] [place] CBC W Auto Differential pane l (Bld)on 07-24-2021 Basophils (Bld) [#/Vol] 0.06 10*3/uL Normal <0.11 [facility] Comment on above: Order Comment: Speci men Type: BLOOD SPECIMENOrdering Facility: [facility] Address: [address] [place] [address] Performed By: #### 5 7021-8 ####[facility]ORATORYCLIA [id number] [address] [place] Basophils/100 WBC (Bld) 0.6 % Normal [facility] Comment on above: Order Comment: Speci men Type: BLOOD SPECIMENOrdering Facility: [facility] Address: [address] [place] [address] Performed By: #### 5 7021-8 ####[facility]ORATORYCLIA [id number] [address] [place] Differential cell count method Nom (Bld) Auto Normal [facility] Comment on above: Order Comment: Speci men Type: BLOOD SPECIMENOrdering Facility: [facility] Address: [address] [place] [address] Performed By: #### 5 7021-8 ####[facility]ATORYCLIA [id number] [address] [place] Eosinophils (Bld) [#/Vol] 0.03 10*3/uL Normal <0.46 [facility] Comment on above: Order Comment: Speci men Type: BLOOD SPECIMENOrdering Facility: [facility] Address: [address] [place] [address] Performed By: #### 5 7021-8 ####[facility] [facility]ORATORYCLIA [id number] [address] [place] Eosinophils/100 WBC (Bld) 0.3 % Normal [facility] Comment on above: Order Comment: Speci men Type: BLOOD SPECIMENOrdering Facility: [facility] Address: [address] [place] [address] Performed By: #### 5 7021-8 ####[facility] [facility]ORATORYCLIA [id number] [address] Erythrocyte distribution width (RBC) [Ratio] 17.0 % High 11.5-15.0 [facility] Comment on above: Order Comment: Speci men Type: BLOOD SPECIMENOrdering Facility: [facility] Address: [address] [place] [address] Performed By: #### 5 7021-8 ####[facility] LABORATORYCLIA [id number] [address] Hematocrit (Bld) [Volume fraction] 30.5 % Low 39.0-51.0 [facility] Comment on above: Order Comment: Speci men Type: BLOOD SPECIMENOrdering Facility: [facility] Address: [address] [place] [address] Performed By: #### 5 7021-8 ####[facility]ITALCLIA [id number] [address] [place] [facility] Hemoglobin (Bld) [Mass/Vol] 9.0 g/dL Low 13.0-17.0 [facility] Comment on above: Order Comment: Speci men Type: BLOOD SPECIMENOrdering Facility: [facility] Address: [address] [place] [address] Performed By: #### 5 7021-8 ####[facility] LABORATORYCLIA [id number] [address] IMMATURE GRAN % 0.5 % Normal [facility] Comment on above: Order Comment: Speci men Type: BLOOD SPECIMENOrdering Facility: [facility] Address: [address] [place] [address] Performed By: #### 5 7021-8 ####[facility]ORATORYCLIA [id number] [address] IMMATURE GRAN ABS 0.05 k/uL Normal <0.10 [facility] Comment on above: Order Comment: Speci men Type: BLOOD SPECIMENOrdering Facility: [facility] Address: [address] [place] [address] Performed By: #### 5 7021-8 ####[facility] LABORATORYCLIA [id number] [address] STATES OF [facility] Lymphocytes (Bld) [#/Vol] 1.68 10*3/uL Normal 1.00-4.00 [facility] Comment on above: Order Comment: Speci men Type: BLOOD SPECIMENOrdering Facility: [facility] Address: [address] [place] [address] Performed By: #### 5 7021-8 ####[facility] LABORATORYCLIA [id number] [address] Lymphocytes/100 WBC (Bld) 16.2 % Normal [facility] Comment on above: Order Comment: Speci men Type: BLOOD SPECIMENOrdering Facility: [facility] Address: [address] [place] [address] Performed By: #### 5 7021-8 ####[facility] LABORATORYCLIA [id number] [address] STATES OF [facility] MCH (RBC) [Entitic mass] 27.4 pg Normal 26.0-34.0 [facility] Comment on above: Order Comment: Speci men Type: BLOOD SPECIMENOrdering Facility: [facility] Address: [address] [place] [address] Performed By: #### 5 7021-8 ####[facility] LABORATORYCLIA [id number] [address] [place] MCHC (RBC) [Mass/Vol] 29.5 g/dL Low 30.5-36.0 [facility] Comment on above: Order Comment: Speci men Type: BLOOD SPECIMENOrdering Facility: [facility] Address: [address] [place] [address] Performed By: #### 5 7021-8 ####[facility]ORATORYCLIA [id number] [address] [place] MCV (RBC) [Entitic vol] 93.0 fL Normal 80.0-100.0 [facility] Comment on above: Order Comment: Speci men Type: BLOOD SPECIMENOrdering Facility: [facility] Address: [address] [place] [address] Performed By: #### 5 7021-8 ####[facility] [facility]ORATORYCLIA [id number] [place] [address] [place] Monocytes (Bld) [#/Vol] 0.63 10*3/uL Normal <0.87 [facility] Comment on above: Order Comment: Speci men Type: BLOOD SPECIMENOrdering Facility: [facility] Address: [address] [place] [address] Performed By: #### 5 7021-8 ####[facility]ORATORYCLIA [id number] [address] [place] Monocytes/100 WBC (Bld) 6.1 % Normal [facility] Comment on above: Order Comment: Speci men Type: BLOOD SPECIMENOrdering Facility: [facility] Address: [address] [place] [address] Performed By: #### 5 7021-8 ####[facility] LABORATORYCLIA [id number] [address] [place] Neutrophils (Bld) [#/Vol] 7.91 10*3/uL High 1.45-7.50 [facility] Comment on above: Order Comment: Speci men Type: BLOOD SPECIMENOrdering Facility: [facility] Address: [address] [place] [address] Performed By: #### 5 7021-8 ####[facility] [facility]ORATORYCLIA [id number] [address] [place] Neutrophils/100 WBC (Bld) 76.3 % Normal [facility] Comment on above: Order Comment: Speci men Type: BLOOD SPECIMENOrdering Facility: [facility] Address: [address] [place] [address] Performed By: #### 5 7021-8 ####[facility] [facility]ORATORYCLIA [id number] [address] Nucleated RBC (Bld) [#/Vol] 10*3/uL Normal <0.01 [facility] Comment on above: Order Comment: Speci men Type: BLOOD SPECIMENOrdering Facility: [facility] Address: [address] [place] [address] Performed By: #### 5 7021-8 ####[facility] LABORATORYCLIA [id number] [address] [place] Nucleated RBC/100 WBC (Bld) [Ratio] 0.0 /100 WBC Normal [facility] Comment on above: Order Comment: Speci men Type: BLOOD SPECIMENOrdering Facility: [facility] Address: [address] [place] [address] Performed By: #### 5 7021-8 ####[facility] LABORATORYCLIA [id number] [address] [place] Platelet mean volume (Bld) [Entitic vol] 11.1 fL Normal 9.0-12.7 [facility] Comment on above: Order Comment: Speci men Type: BLOOD SPECIMENOrdering Facility: [facility] Address: [address] [place] [address] Performed By: #### 5 7021-8 ####[facility] LABORATORYCLIA [id number] [address] [place] Platelets (Bld) [#/Vol] 285 10*3/uL Normal 150-400 [facility] Comment on above: Order Comment: Speci men Type: BLOOD SPECIMENOrdering Facility: [facility] Address: [address] [place] [address] Performed By: #### 5 7021-8 ####[facility] LABORATORYCLIA [id number] [address] [place] RBC (Bld) [#/Vol] 3.28 10*6/uL Low 4.20-6.00 [facility] Comment on above: Order Comment: Speci men Type: BLOOD SPECIMENOrdering Facility: [facility] Address: [address] [place] [address] Performed By: #### 5 7021-8 ####[facility] LABORATORYCLIA [id number] [place] [address] [place] WBC (Bld) [#/Vol] 10.36 10*3/uL Normal 3.70-11.00 [facility] Comment on above: Order Comment: Speci men Type: BLOOD SPECIMENOrdering Facility: [facility] Address: [address] [place] [address] Performed By: #### 5 7021-8 ####[facility] LABORATORYCLIA [id number] [address] [place] Legionella Ag Ur Qlon 2021 Legionella sp Ag Ql (U) Negative Normal Negative [facility] Comment on above: Order Comment: Speci men Type: URINE SPECIMENOrdering Facility: [facility] Address: [address] [place] [address] Performed By: #### 3 2781-7 ####[facility]ORATORYCLIA [id number] [place] [address] [place] Magnesium SerPl-mCncon 07-24 Magnesium [Mass/Vol] 2.3 mg/dL Normal 1.7-2.3 [facility] Comment on above: Order Comment: Speci men Type: BLOOD SPECIMENOrdering Facility: [facility] Address: [address] [place] [address] Performed By: #### 1 9123-9, PROCAL, 2777-1, 52536-5 ####[facility]ORATORYCLIA [id number] [place] [address] [place] NURSING PROGon 07-24-2021 NURSING PROG Normal [facility] PROCALCITONIN (LAB)on 2021 Procalcitonin [Mass/Vol] 0.15 ng/mL High <0.09 [facility] Comment on above: Order Comment: Speci men Type: BLOOD SPECIMENOrdering Facility: [facility] Address: [address] [address] Result Comment: For a guided interpretation of test results, please visit the Change in Procalcitonin Calculator, [email or web address]. Performed By: #### 1 9123-9, PROCAL, 7-1, 64893-3 ####[facility] LABORATORYCLIA [id number] [address] Phosphate SerPl-mCncon 07-24 Phosphate [Mass/Vol] 3.9 mg/dL Normal 2.7-4.8 [facility] Comment on above: Order Comment: Speci men Type: BLOOD SPECIMENOrdering Facility: [facility] Address: [address] [place] [address] Performed By: #### 1 9123-9, ELVAAL, 7-1, 60392-5 ####[facility]ORATORYCLIA [id number] [address] [place] STREPTOCOCCUS PNEUMONIAE AGo n 07-24-2021 STREPTOCOCCUS PNEUMONIAE AG Normal [facility] Comment on above: Performed By: #### S PNAG ####[facility] LABORATORYCLIA [id number] [address] [place] aPTT PPPon 07-24-2021 aPTT Coag (PPP) [Time] 60.8 s High 23.0-32.4 [facility] Comment on above: Order Comment: Speci men Type: BLOOD SPECIMENOrdering Facility: [facility] Address: [address] [address] Performed By: #### 1 4979-9 ####[facility] LABORATORYCLIA [id number] [address] aPTT Coag (PPP) [Time] 38.2 s High 23.0-32.4 [facility] Comment on above: Order Comment: Speci men Type: BLOOD SPECIMENOrdering Facility: [facility] Address: [address] [address] Performed By: #### 1 4979-9 ####[facility]ORATORYCLIA [id number] [address] [place] aPTT Coag (PPP) [Time] 35.9 s High 23.0-32.4 [facility] Comment on above: Order Comment: Speci men Type: BLOOD SPECIMENOrdering Facility: [facility] Address: [address] [place] [address] Performed By: #### 1 4979-9 ####[facility] LABORATORYCLIA [id number] [address] aPTT Coag (PPP) [Time] 28.8 s Normal 23.0-32.4 [facility] Comment on above: Order Comment: Speci men Type: BLOOD SPECIMENOrdering Facility: [facility] Address: [address] [place] [address] Performed By: #### 1 [id number] ####[facility] LABORATORYCLIA [id number] [address] [place] ALLIED HEALTHon 07-23-2021 ALLIED HEALTH Normal [facility] ALLIED HEALTH Normal [facility] ALLIED HEALTH Normal [facility] ARTERIAL BLOOD GASESon 07-23 Base excess Calc (Bld) [Moles/Vol] 4 mmol/L High 0-2 [facility] Comment on above: Order Comment: Speci men Type: ARTERIAL BLOOD SPECIMENOrdering Facility: [facility] Address: [address] [place] [address] Performed By: #### A LLBG ####[facility] LABORATORYCLIA [id number] [address] Body temperature 100.58 [degF] Normal [facility] Comment on above: Order Comment: Speci men Type: ARTERIAL BLOOD SPECIMENOrdering Facility: [facility] Address: [address] [place] [address] Performed By: #### A LLBG ####[facility] LABORATORYCLIA [id number] [address] CALCIUM IONIZED, PH CORRECTED 1.26 mmol/L Normal 1.08-1.30 [facility] Comment on above: Order Comment: Speci men Type: ARTERIAL BLOOD SPECIMENOrdering Facility: [facility] Address: [address] [place] [address] Performed By: #### A LLBG ####[facility] LABORATORYCLIA [id number] [place] [address] [place] Calcium.ionized (BldV) [Mass/Vol] 1.25 mmol/L Normal 1.08-1.30 [facility] Comment on above: Order Comment: Speci men Type: ARTERIAL BLOOD SPECIMENOrdering Facility: [facility] Address: [address] [place] [address] Performed By: #### A LLBG ####[facility] LABORATORYCLIA [id number] [address] OF [facility] Carboxyhemoglobin (BldA) [Mass fraction] 1.2 % Normal 0.0-2.0 [facility] Comment on above: Order Comment: Speci men Type: ARTERIAL BLOOD SPECIMENOrdering Facility: [facility] Address: [address] [place] [address] Result Comment: Carb oxyhemoglobin Reference Range for Smokers: 2.0-8.0% Performed By: #### A LLBG ####[facility] LABORATORYCLIA [id number] [address] [place] CO2 (Bld) [Partial pressure] 46 mm Hg Normal 36-46 [facility] Comment on above: Order Comment: Speci men Type: ARTERIAL BLOOD SPECIMENOrdering Facility: [facility] Address: [address] [place] [address] Performed By: #### A LLBG ####[facility] LABORATORYCLIA [id number] [address] [place] CO2 [Moles/Vol] 27 mmol/L Normal 22-28 [facility] Comment on above: Order Comment: Speci men Type: ARTERIAL BLOOD SPECIMENOrdering Facility: [facility] Address: [address] [place] [address] Performed By: #### A LLBG ####[facility] LABORATORYCLIA [id number] [address] CO2 adjusted to patient's actual temperature (Bld) [Partial pressure] 48 mmHg High 36-46 [facility] Comment on above: Order Comment: Speci men Type: ARTERIAL BLOOD SPECIMENOrdering Facility: [facility] Address: [address] [place] [address] Performed By: #### A LLBG ####[facility] LABORATORYCLIA [id number] [address] [place] Glucose [Mass/Vol] 134 mg/dL High 60-105 [facility] Comment on above: Order Comment: Speci men Type: ARTERIAL BLOOD SPECIMENOrdering Facility: [facility] Address: [address] [place] [address] Performed By: #### A LLBG ####[facility]ORATORYCLIA [id number] [address] HCO3 (Bld) [Moles/Vol] 29 mmol/L High 22-26 [facility] Comment on above: Order Comment: Speci men Type: ARTERIAL BLOOD SPECIMENOrdering Facility: [facility] Address: [address] [place] [address] Performed By: #### A LLBG ####[facility]ORATORYCLIA [id number] [address] Hematocrit (Bld) [Volume fraction] 31.4 % Low 39.0-51.0 [facility] Comment on above: Order Comment: Speci men Type: ARTERIAL BLOOD SPECIMENOrdering Facility: [facility] Address: [address] [place] [address] Performed By: #### A LLBG ####[facility]ORATORYCLIA [id number] [address] [place] Hemoglobin (Bld) [Mass/Vol] 10.2 g/dL Low 13.0-17.0 [facility] Comment on above: Order Comment: Speci men Type: ARTERIAL BLOOD SPECIMENOrdering Facility: [facility] Address: [address] [address] Performed By: #### A LLBG ####[facility]ORATORYCLIA [id number] [address] Methemoglobin (Bld) [Mass fraction] % Normal 0.0-1.5 [facility] Comment on above: Order Comment: Speci men Type: ARTERIAL BLOOD SPECIMENOrdering Facility: [facility] Address: [address] [address] Performed By: #### A LLBG ####[facility]ORATORYCLIA [id number] [address] O2 THERAPY Ventilator Normal [facility] Comment on above: Order Comment: Speci men Type: ARTERIAL BLOOD SPECIMENOrdering Facility: [facility] Address: [address] [place] [address] Performed By: #### A LLBG ####[facility]ATORYCLIA [id number] [address] [place] Oxygen (Bld) [Partial pressure] 113 mm Hg High 85-95 [facility] Comment on above: Order Comment: Speci men Type: ARTERIAL BLOOD SPECIMENOrdering Facility: [facility] Address: [address] [place] [address] Performed By: #### A LLBG ####[facility]ATORYCLIA [id number] [address] Oxygen adjusted to patient's actual temperature (Bld) [Partial pressure] 119 mmHg High 85-95 [facility] Comment on above: Order Comment: Speci men Type: ARTERIAL BLOOD SPECIMENOrdering Facility: [facility] Address: [facility] [address] Performed By: #### A LLBG ####[facility]ATORYCLIA [id number] [address] [place] OXYGEN SATURATION, ARTERIAL 98 % Normal 95-98 [facility] Comment on above: Order Comment: Speci men Type: ARTERIAL BLOOD SPECIMENOrdering Facility: [facility] Address: [address] [place] [address] Performed By: #### A LLBG ####[facility]ORATORYCLIA [id number] [address] Oxyhemoglobin (BldA) [Mass fraction] 96 % Normal 95-98 [facility] Comment on above: Order Comment: Speci men Type: ARTERIAL BLOOD SPECIMENOrdering Facility: [facility] Address: [address] [place] [address] Performed By: #### A LLBG ####[facility]ORATORYCLIA [id number] [address] [place] pH (Bld) 7.41 [pH] Normal 7.35-7.45 [facility] Comment on above: Order Comment: Speci men Type: ARTERIAL BLOOD SPECIMENOrdering Facility: [facility] Address: [address] [place] [address] Performed By: #### A LLBG ####[facility]ORATORYCLIA [id number] [address] pH adjusted to patient's actual temperature (Bld) 7.40 Normal 7.35-7.45 [facility] Comment on above: Order Comment: Speci men Type: ARTERIAL BLOOD SPECIMENOrdering Facility: [facility] Address: [address] [place] [address] Performed By: #### A LLBG ####[facility]ORATORYCLIA [id number] [address] [place] Potassium [Moles/Vol] 4.3 mmol/L Normal 3.5-5.0 [facility] Comment on above: Order Comment: Speci men Type: ARTERIAL BLOOD SPECIMENOrdering Facility: [facility] Address: [address] [place] [address] Performed By: #### A LLBG ####[facility]ORATORYCLIA [id number] [address] [place] Sodium [Moles/Vol] 144 mmol/L Normal 136-144 [facility] Comment on above: Order Comment: Speci men Type: ARTERIAL BLOOD SPECIMENOrdering Facility: [facility] Address: [address] [place] [address] Performed By: #### A LLBG ####[facility]ORATORYCLIA [id number] [address] OF [facility] Bacteria CSF Culton 07-24-19 Bacteria identified Cx Nom (CSF) Abnormal [facility] Comment on above: Performed By: #### 6 06-4 ####[facility]ORATORYCLIA [id number] [address] [place] Basic metabolic 2000 panelon 07-23-2021 Anion gap [Moles/Vol] 12 mmol/L Normal 9-18 [facility] Comment on above: Order Comment: Speci men Type: BLOOD SPECIMENOrdering Facility: [facility] Address: [address] [place] [address] Performed By: #### 2 4321-2 ####[facility]ORATORYCLIA [id number] [place] [address] [place] Calcium [Mass/Vol] 9.7 mg/dL Normal 8.5-10.2 [facility] Comment on above: Order Comment: Speci men Type: BLOOD SPECIMENOrdering Facility: [facility] Address: [address] [place] [address] Performed By: #### 2 4321-2 ####[facility]ORATORYCLIA [id number] [address] [place] Chloride [Moles/Vol] 105 mmol/L Normal 97-105 [facility] Comment on above: Order Comment: Speci men Type: BLOOD SPECIMENOrdering Facility: [facility] Address: [address] [place] [address] Performed By: #### 2 4321-2 ####[facility]ORATORYCLIA [id number] [place] [address] [place] CO2 [Moles/Vol] 28 mmol/L Normal 22-30 [facility] Comment on above: Order Comment: Speci men Type: BLOOD SPECIMENOrdering Facility: [facility] Address: [address] [place] [address] Performed By: #### 2 4321-2 ####[facility]ITALCLIA [id number] [address] [place] Creatinine [Mass/Vol] 0.78 mg/dL Normal 0.73-1.22 [facility] Comment on above: Order Comment: Speci francia Type: BLOOD SPECIMENOrdering Facility: [facility] Address: [address] [place] [address] Performed By: #### 2 4321-2 ####[facility]OSPITALIA [id number] [address] ESTIMATED GLOMERULAR FILTRATION RATE 97 mL/min/1.73m??? Normal >=60 [facility] Comment on above: Order Comment: Speccara feldman Type: BLOOD SPECIMENOrdering Facility: [facility] Address: [address] [place] [address] Result Comment: Luzmaria mated Glomerular Filtration Rate [...] #### 2 4321-2 ####[facility]ORATORYCLIA [id number] [address] [place] Glucose [Mass/Vol] 127 mg/dL High 74-99 [facility] Comment on above: Order Comment: Shira feldman Type: BLOOD SPECIMENOrdering Facility: [facility] Address: [address] [place] [address] Result Comment: The [place] [employer] (ADA) provides guidance for cutoff [...] Standards of Medical Care in Diabetes 2016, [place] [employer]. Diabetes Care. 2016.39(Suppl 1). Performed By: #### 2 4321-2 ####[facility]ORATORYCLIA [id number] [address] [place] Potassium [Moles/Vol] 4.3 mmol/L Normal 3.7-5.1 [facility] Comment on above: Order Comment: Shira feldman Type: BLOOD SPECIMENOrdering Facility: [facility] Address: [address] [place] [address] Performed By: #### 2 4321-2 ####[facility] HOSPITALIA [id number] [address] [place] Sodium [Moles/Vol] 145 mmol/L High 136-144 [facility] Comment on above: Order Comment: Shira feldman Type: BLOOD SPECIMENOrdering Facility: [facility] Address: [address] [place] [address] Performed By: #### 2 4321-2 ####[facility] HOSPITALIA [id number] [address] [place] Urea nitrogen [Mass/Vol] 37 mg/dL High 9-24 [facility] Comment on above: Order Comment: Shira feldman Type: BLOOD SPECIMENOrdering Facility: [facility] Address: [address] [place] [address] Performed By: #### 2 4321-2 ####[facility]ITALCLIA [id number] [place] [address] [place] C diff Tox gens Stl Ql MEGAN+p robeon 07-23-2021 C. difficile toxin genes MEGAN+probe Ql (Stl) Negative Normal Negative for C. difficile toxin by PCR [facility] Comment on above: Order Comment: Speci men Type: STOOL SPECIMENOrdering Facility: [facility] Address: [address] [place] [address] Performed By: #### 5 4067-4 ####[facility]ORATORYCLIA [id number] [address] [place] CBC W Auto Differential pane l (Bld)on 07-23-2021 Basophils (Bld) [#/Vol] 0.07 10*3/uL Normal <0.11 [facility] Comment on above: Order Comment: Speci men Type: BLOOD SPECIMENOrdering Facility: [facility] Address: [address] [place] [address] Performed By: #### 5 7021-8 ####[facility]ORATORYCLIA [id number] [address] [place] Basophils/100 WBC (Bld) 0.5 % Normal [facility] Comment on above: Order Comment: Speci men Type: BLOOD SPECIMENOrdering Facility: [facility] Address: [address] [place] [address] Performed By: #### 5 7021-8 ####[facility]ORATORYCLIA [id number] [address] Differential cell count method Nom (Bld) Auto Normal [facility] Comment on above: Order Comment: Speci men Type: BLOOD SPECIMENOrdering Facility: [facility] Address: [address] [place] [address] Performed By: #### 5 7021-8 ####[facility]ATORYCLIA [id number] [place] [address] [place] Eosinophils (Bld) [#/Vol] 10*3/uL Normal <0.46 [facility] Comment on above: Order Comment: Speci men Type: BLOOD SPECIMENOrdering Facility: [facility] Address: [address] [place] [address] Performed By: #### 5 7021-8 ####[facility]ORATORYCLIA [id number] [address] STATES [facility] Eosinophils/100 WBC (Bld) 0.2 % Normal [facility] Comment on above: Order Comment: Speci men Type: BLOOD SPECIMENOrdering Facility: [facility] Address: [address] [place] [address] Performed By: #### 5 7021-8 ####[facility]ORATORYCLIA [id number] [address] STATES [facility] Erythrocyte distribution width (RBC) [Ratio] 16.7 % High 11.5-15.0 [facility] Comment on above: Order Comment: Speci men Type: BLOOD SPECIMENOrdering Facility: [facility] Address: [address] [place] [address] Performed By: #### 5 7021-8 ####[facility]ORATORYCLIA [id number] [address] Hematocrit (Bld) [Volume fraction] 32.8 % Low 39.0-51.0 [facility] Comment on above: Order Comment: Speci men Type: BLOOD SPECIMENOrdering Facility: [facility] Address: [address] [place] [address] Performed By: #### 5 7021-8 ####[facility]ORATORYCLIA [id number] [address] [place] Hemoglobin (Bld) [Mass/Vol] 9.7 g/dL Low 13.0-17.0 [facility] Comment on above: Order Comment: Speci men Type: BLOOD SPECIMENOrdering Facility: [facility] Address: [address] [place] [address] Performed By: #### 5 7021-8 ####[facility]ORATORYCLIA [id number] [address] IMMATURE GRAN % 0.7 % Normal [facility] Comment on above: Order Comment: Speci men Type: BLOOD SPECIMENOrdering Facility: [facility] Address: [address] [place] [address] Performed By: #### 5 7021-8 ####[facility]ORATORYCLIA [id number] [address] STATES [facility] IMMATURE GRAN ABS 0.09 k/uL Normal <0.10 [facility] Comment on above: Order Comment: Speci men Type: BLOOD SPECIMENOrdering Facility: [facility] Address: [address] [place] [address] Performed By: #### 5 7021-8 ####[facility]ORATORYCLIA [id number] [address] Lymphocytes (Bld) [#/Vol] 1.94 10*3/uL Normal 1.00-4.00 [facility] Comment on above: Order Comment: Speci men Type: BLOOD SPECIMENOrdering Facility: [facility] Address: [address] [place] [address] Performed By: #### 5 7021-8 ####[facility]ORATORYCLIA [id number] [address] Lymphocytes/100 WBC (Bld) 14.6 % Normal [facility] Comment on above: Order Comment: Speci men Type: BLOOD SPECIMENOrdering Facility: [facility] Address: [address] [place] [address] Performed By: #### 5 7021-8 ####[facility]ORATORYCLIA [id number] [address] MCH (RBC) [Entitic mass] 27.2 pg Normal 26.0-34.0 [facility] Comment on above: Order Comment: Speci men Type: BLOOD SPECIMENOrdering Facility: [facility] Address: [address] [place] [address] Performed By: #### 5 7021-8 ####[facility]ORATORYCLIA [id number] [address] [place] MCHC (RBC) [Mass/Vol] 29.6 g/dL Low 30.5-36.0 [facility] Comment on above: Order Comment: Speci men Type: BLOOD SPECIMENOrdering Facility: [facility] Address: [address] [place] [address] Performed By: #### 5 7021-8 ####[facility]ORATORYCLIA [id number] [address] [place] MCV (RBC) [Entitic vol] 92.1 fL Normal 80.0-100.0 [facility] Comment on above: Order Comment: Speci men Type: BLOOD SPECIMENOrdering Facility: [facility] Address: [address] [place] [address] Performed By: #### 5 7021-8 ####[facility]ORATORYCLIA [id number] [place] [address] [place] Monocytes (Bld) [#/Vol] 0.74 10*3/uL Normal <0.87 [facility] Comment on above: Order Comment: Speci men Type: BLOOD SPECIMENOrdering Facility: [facility] Address: [address] [place] [address] Performed By: #### 5 7021-8 ####[facility]ATORYCLIA [id number] [address] [place] Monocytes/100 WBC (Bld) 5.6 % Normal [facility] Comment on above: Order Comment: Speci men Type: BLOOD SPECIMENOrdering Facility: [facility] Address: [address] [place] [address] Performed By: #### 5 7021-8 ####[facility]ORATORYCLIA [id number] [address] [place] Neutrophils (Bld) [#/Vol] 10.43 10*3/uL High 1.45-7.50 [facility] Comment on above: Order Comment: Speci men Type: BLOOD SPECIMENOrdering Facility: [facility] Address: [address] [place] [address] Performed By: #### 5 7021-8 ####[facility]ORATORYCLIA [id number] [address] Neutrophils/100 WBC (Bld) 78.4 % Normal [facility] Comment on above: Order Comment: Speci men Type: BLOOD SPECIMENOrdering Facility: [facility] Address: [address] [address] Performed By: #### 5 7021-8 ####[facility]ATORYCLIA [id number] [address] [place] Nucleated RBC (Bld) [#/Vol] 10*3/uL Normal <0.01 [facility] Comment on above: Order Comment: Speci men Type: BLOOD SPECIMENOrdering Facility: [facility] Address: [address] [address] Performed By: #### 5 7021-8 ####[facility]ORATORYCLIA [id number] [address] OF [facility] Nucleated RBC/100 WBC (Bld) [Ratio] 0.0 /100 WBC Normal [facility] Comment on above: Order Comment: Speci men Type: BLOOD SPECIMENOrdering Facility: [facility] Address: [address] [place] [address] Performed By: #### 5 7021-8 ####[facility]ATORYCLIA [id number] [address] [place] Platelet mean volume (Bld) [Entitic vol] 11.0 fL Normal 9.0-12.7 [facility] Comment on above: Order Comment: Speci men Type: BLOOD SPECIMENOrdering Facility: [facility] Address: [address] Performed By: #### 5 7021-8 ####[facility]ATORYCLIA [id number] [address] [place] Platelets (Bld) [#/Vol] 381 10*3/uL Normal 150-400 [facility] Comment on above: Order Comment: Speci men Type: BLOOD SPECIMENOrdering Facility: [facility] Address: [address] [place] [address] Performed By: #### 5 7021-8 ####[facility]ATORYCLIA [id number] [address] [place] RBC (Bld) [#/Vol] 3.56 10*6/uL Low 4.20-6.00 [facility] Comment on above: Order Comment: Speci men Type: BLOOD SPECIMENOrdering Facility: [facility] Address: [address] [place] [address] Performed By: #### 5 7021-8 ####[facility]ATORYCLIA [id number] [address] OF [facility] WBC (Bld) [#/Vol] 13.29 10*3/uL High 3.70-11.00 [facility] Comment on above: Order Comment: Speci men Type: BLOOD SPECIMENOrdering Facility: [facility] Address: [address] [place] [address] Performed By: #### 5 7021-8 ####[facility]ORATORYCLIA [id number] [address] OF [facility] CONSULT PROGon 07-23-2021 CONSULT PROG Normal [facility] CONSULT PROG Normal [facility] CSF MANUAL DIFFon 07-23-2021 DIF TTL, CSF 100 cells counted Normal [facility] Comment on above: Order Comment: Speci men Type: CEREBROSPINAL FLUIDOrdering Facility: [facility] Address: [address] [place] [address] Performed By: #### L [id number], [id number], 36885-2 ####[facility]ATORYCLIA [id number] [address] [place] LYMPH%, CSF 2 % Low 50-90 [facility] Comment on above: Order Comment: Speci men Type: CEREBROSPINAL FLUIDOrdering Facility: [facility] Address: [address] [place] [address] Performed By: #### L [id number], [id number], 25539-0 ####[facility]ATORYCLIA [id number] [place] [address] [place] MONO%, CSF 9 % Low 10-50 [facility] Comment on above: Order Comment: Speci men Type: CEREBROSPINAL FLUIDOrdering Facility: [facility] Address: [address] [place] [address] Performed By: #### L [id number], [id number], 02271-2 ####[facility]ATORYCLIA [id number] [place] [address] [place] NEUT%, CSF 89 % High 0-3 [facility] Comment on above: Order Comment: Speci men Type: CEREBROSPINAL FLUIDOrdering Facility: [facility] Address: [address] [place] [address] Performed By: #### L [id number], [id number], 94393-7 ####[facility]ATORYCLIA [id number] [address] CSF PATHOLOGIST INTERP (LAB REFLEX ORDER-NO BILL)on 07-23-2021 CSF STAFF REVIEW Negative for maligna nt cells. Numerous bacterial organisms present, cocci in pairs and chains. Recommend correlation with CSF culture results. Normal [facility] Comment on above: Order Comment: Speci men Type: CEREBROSPINAL FLUIDOrdering Facility: [facility] Address: [address] [place] [address] Performed By: #### L [id number], [id number], 60610-2 ####[facility]ATORYCLIA [id number] [address] Pathologist name Reviewed by Amador Stevens MD [facility] Comment on above: Order Comment: Speci men Type: CEREBROSPINAL FLUIDOrdering Facility: [facility] Address: [address] [place] [address] Performed By: #### L [id number], [id number], 72606-0 ####[facility]ATORYCLIA [id number] [address] [place] CT BRAIN WO IVCONon 07-24-19 CT BRAIN WO IVCON Normal [facility] Cell count panel (CSF)on Clarity (CSF) Clear Normal Clear [facility] Comment on above: Order Comment: Speci men Type: CEREBROSPINAL FLUIDOrdering Facility: [facility] Address: [address] [place] [address] Performed By: #### L [id number], [id number], 33322-2 ####[facility]ATORYCLIA [id number] [address] Clarity (Unsp spec) Not Indicated Normal Clear [facility] Comment on above: Order Comment: Speci men Type: CEREBROSPINAL FLUIDOrdering Facility: [facility] Address: [address] [place] [address] Performed By: #### L [id number], [id number], 56331-3 ####[facility]ATORYCLIA [id number] [address] Color (CSF) Colorless Normal Colorless [facility] Comment on above: Order Comment: Speci men Type: CEREBROSPINAL FLUIDOrdering Facility: [facility] Address: [address] [place] [address] Performed By: #### L [id number], [id number], 23426-4 ####[facility]ORATORYCLIA [id number] [address] Color (Spun CSF) Not Indicated Normal Colorless [facility] Comment on above: Order Comment: Speci men Type: CEREBROSPINAL FLUIDOrdering Facility: [facility] Address: [address] [place] [address] Performed By: #### L [id number], [id number], 69727-0 ####[facility]ATORYCLIA [id number] [address] CSF TUBE NUMBER [employer] Normal [facility] Comment on above: Order Comment: Speci men Type: CEREBROSPINAL FLUIDOrdering Facility: [facility] Address: [address] [place] [address] Performed By: #### L [id number], [id number], 36384-4 ####[facility]ATORYCLIA [id number] [address] RBC Manual cnt (CSF) [#/Vol] 7 cells/uL High 0-5 [facility] Comment on above: Order Comment: Speci men Type: CEREBROSPINAL FLUIDOrdering Facility: [facility] Address: [address] [place] [address] Performed By: #### L [id number], [id number], 93565-0 ####[facility] LABORATORYCLIA [id number] [address] WBC Manual cnt (CSF) [#/Vol] 193 cells/uL High 0-5 [facility] Comment on above: Order Comment: Speci men Type: CEREBROSPINAL FLUIDOrdering Facility: [facility] Address: [address] [place] [address] Performed By: #### L [id number], [id number], 46673-6 ####[facility]ITALCL[facility] [id number] [address] Glucose CSF-ncon 2 Glucose (CSF) [Mass/Vol] 81 mg/dL High 40-70 [facility] Comment on above: Order Comment: Speci men Type: CEREBROSPINAL FLUIDOrdering Facility: [facility] Address: [address] [place] [address] Result Comment: Lumb ar CSF glucose values of healthy patients are approximately 60% of the plasma values and must always be compared with a concurrently measured plasma value for adequate clinical interpretation.References: 1. Glucose HK (GLUC3) [package insert V 12.0 [place]ian]. [employer], [place], [place]. September 2015. 2. Teresa HGarfield, He, H. (2015). Chapter 7: Glucose and Lactate. Marianela Rothman.(eds.), Cerebrospinal Fluid in Clinical Neurology. [place]: Fly Fishing Hunter. Performed By: #### 2 342-4, 2880-3 ####[facility] LABORATORYCLIA [id number] [address] NURSING PROGon 07-23-2021 NURSING PROG Normal [facility] NURSING PROG Normal [facility] Prot CSF-mCncon 07-23-2021 Protein (CSF) [Mass/Vol] 68 mg/dL High 15-45 [facility] Comment on above: Order Comment: Speci men Type: CEREBROSPINAL FLUIDOrdering Facility: [facility] Address: [address] [place] [address] Performed By: #### 2 342-4, 2880-3 ####[facility] LABORATORYCLIA [id number] [address] Urinalysis complete panel (U )on 07-23-2021 Bilirubin Ql (U) Negative Normal Negative [facility] Comment on above: Order Comment: Speci men Type: URINE SPECIMENOrdering Facility: [facility] Address: [address] [place] [address] Performed By: #### 2 4356-8 ####[facility] LABORATORYCLIA [id number] [address] [place] Clarity (Unsp spec) Clear Normal Clear [facility] Comment on above: Order Comment: Speci men Type: URINE SPECIMENOrdering Facility: [facility] Address: [address] [place] [address] Performed By: #### 2 4356-8 ####[facility] LABORATORYCLIA [id number] [address] Color (U) Light Yellow Normal yellow [facility] Comment on above: Order Comment: Speci men Type: URINE SPECIMENOrdering Facility: [facility] Address: [address] [place] [address] Performed By: #### 2 4356-8 ####[facility] LABORATORYCLIA [id number] [address] [place] Glucose Test strip (U) [Mass/Vol] Negative Normal Negative [facility] Comment on above: Order Comment: Speci men Type: URINE SPECIMENOrdering Facility: [facility] Address: [address] [place] [address] Performed By: #### 2 4356-8 ####[facility]ORYCLIA [id number] [address] Hemoglobin Ql (U) Negative Normal Negative [facility] Comment on above: Order Comment: Speci men Type: URINE SPECIMENOrdering Facility: [facility] Address: [address] [place] [address] Performed By: #### 2 4356-8 ####[facility]ORYCLIA [id number] [address] Ketones Ql (U) Negative Normal Negative [facility] Comment on above: Order Comment: Speci men Type: URINE SPECIMENOrdering Facility: [facility] Address: [address] [place] [address] Performed By: #### 2 4356-8 ####[facility] LABORATORYCLIA [id number] [address] Leukocyte esterase Test strip Ql (U) Negative Normal Negative [facility] Comment on above: Order Comment: Speci men Type: URINE SPECIMENOrdering Facility: [facility] Address: [address] [place] [address] Performed By: #### 2 4356-8 ####[facility] LABORATORYCLIA [id number] [address] Nitrite Ql (U) Negative Normal Negative [facility] Comment on above: Order Comment: Speci men Type: URINE SPECIMENOrdering Facility: [facility] Address: [address] [address] Performed By: #### 2 4356-8 ####[facility]ATORYCLIA [id number] [address] pH (U) 6.0 [pH] Normal 5.0-8.0 [facility] Comment on above: Order Comment: Speci men Type: URINE SPECIMENOrdering Facility: [facility] Address: [address] [address] Performed By: #### 2 4356-8 ####[facility] LABORATORYCLIA [id number] [address] Protein (U) [Mass/Vol] 1+ Abnormal Negative [facility] Comment on above: Order Comment: Speci men Type: URINE SPECIMENOrdering Facility: [facility] Address: [address] [place] [address] Performed By: #### 2 4356-8 ####[facility] LABORATORYCLIA [id number] [address] RBC LM.HPF (Urine sed) [#/Area] 0-3 /HPF Normal 0-3 /HPF [facility] Comment on above: Order Comment: Speci men Type: URINE SPECIMENOrdering Facility: [facility] Address: [address] [place] [address] Performed By: #### 2 4356-8 ####[facility] LABORATORYCLIA [id number] [address] Specific gravity (U) [Rel density] 1.018 Normal 1.005-1.030 [facility] Comment on above: Order Comment: Speci men Type: URINE SPECIMENOrdering Facility: [facility] Address: [address] [place] [address] Performed By: #### 2 4356-8 ####[facility] LABORATORYCLIA [id number] [address] Urobilinogen Ql (U) Normal Normal Negative [facility] Comment on above: Order Comment: Speci men Type: URINE SPECIMENOrdering Facility: [facility] Address: [address] [place] [address] Performed By: #### 2 4356-8 ####[facility] LABORATORYCLIA [id number] [address] WBC LM.HPF (Urine sed) [#/Area] 0-5 /HPF Normal 0-5 /HPF [facility] Comment on above: Order Comment: Speci men Type: URINE SPECIMENOrdering Facility: [facility] Address: [address] [place] [address] Performed By: #### 2 4356-8 ####[facility] LABORATORYCLIA [id number] [address] Vancomycin random [Mass/Vol] on 07-23-2021 Vancomycin [Mass/Vol] 12.9 ug/mL Normal 10.0-20.0 [facility] Comment on above: Order Comment: Speci men Type: BLOOD SPECIMENOrdering Facility: [facility] Address: [address] [place] [address] Result Comment: Refe rence ranges and high/low indicator flags are provided as general guidelines only. The treating physician must determine appropriate target levels/dosing based on the specific clinical situation. Performed By: #### 4 091-5 ####[facility] LABORATORYCLIA [id number] [address] OF [facility] XR CHEST 1V FRONTALon 2021 XR CHEST 1V FRONTAL Normal [facility] XR CHEST 1V FRONTAL Normal [facility] aPTT PPPon 07-23-2021 aPTT Coag (PPP) [Time] 32.3 s Normal 23.0-32.4 [facility] Comment on above: Order Comment: Speci men Type: BLOOD SPECIMENOrdering Facility: [facility] Address: [address] [place] [address] Performed By: #### 1 4979-9 ####[facility] LABORATORYCLIA [id number] [address] STATES OF [facility] aPTT Coag (PPP) [Time] 57.9 s High 23.0-32.4 [facility] Comment on above: Order Comment: Speci men Type: BLOOD SPECIMENOrdering Facility: [facility] Address: [address] [place] [address] Performed By: #### 1 4979-9 ####[facility] LABORATORYCLIA [id number] [address] aPTT Coag (PPP) [Time] 46.3 s High 23.0-32.4 [facility] Comment on above: Order Comment: Speci men Type: BLOOD SPECIMENOrdering Facility: [facility] Address: [address] [place] [address] Performed By: #### 1 4979-9 ####[facility] LABORATORYCLIA [id number] [place] [address] [place] Basic metabolic 2000 panelon 07-22-2021 Anion gap [Moles/Vol] 8 mmol/L Low -18 [facility] Comment on above: Order Comment: Speci men Type: BLOOD SPECIMENOrdering Facility: [facility] Address: [address] [place] [address] Performed By: #### 2 4321-2 ####[facility] LABORATORYCLIA [id number] [place] [address] [place] Calcium [Mass/Vol] 9.5 mg/dL Normal 8.5-10.2 [facility] Comment on above: Order Comment: Speci men Type: BLOOD SPECIMENOrdering Facility: [facility] Address: [address] [place] [address] Performed By: #### 2 4321-2 ####[facility] LABORATORYCLIA [id number] [place] [address] [place] Chloride [Moles/Vol] 105 mmol/L Normal 97-105 [facility] Comment on above: Order Comment: Speci men Type: BLOOD SPECIMENOrdering Facility: [facility] Address: [address] [place] [address] Performed By: #### 2 4321-2 ####[facility] LABORATORYCLIA [id number] [place] [address] [place] CO2 [Moles/Vol] 32 mmol/L High 22-30 [facility] Comment on above: Order Comment: Speci men Type: BLOOD SPECIMENOrdering Facility: [facility] Address: [address] [place] [address] Performed By: #### 2 4321-2 ####[facility]ATORYCLIA [id number] [address] STATES OF [facility] Creatinine [Mass/Vol] 0.75 mg/dL Normal 0.73-1.22 [facility] Comment on above: Order Comment: Shira feldman Type: BLOOD SPECIMENOrdering Facility: [facility] Address: [address] [address] Performed By: #### 2 4321-2 ####[facility] LABORATORYCLIA [id number] [address] ESTIMATED GLOMERULAR FILTRATION RATE 98 mL/min/1.73m??? Normal >=60 [facility] Comment on above: Order Comment: Shira feldman Type: BLOOD SPECIMENOrdering Facility: [facility] Address: [address] [place] [address] Result Comment: Luzmaria mated Glomerular Filtration Rate [...] #### 2 4321-2 ####[facility] LABORATORYCLIA [id number] [address] [place] Glucose [Mass/Vol] 128 mg/dL High 74-99 [facility] Comment on above: Order Comment: Shira feldman Type: BLOOD SPECIMENOrdering Facility: [facility] Address: [address] [place] [address] Result Comment: The [place] [employer] (ADA) provides guidance for cutoff [...] Standards of Medical Care in Diabetes 2016, [place] [employer]. Diabetes Care. 2016.39(Suppl 1). Performed By: #### 2 4321-2 ####[facility] LABORATORYCLIA [id number] [address] STATES OF [facility] Potassium [Moles/Vol] 3.7 mmol/L Normal 3.7-5.1 [facility] Comment on above: Order Comment: Speci men Type: BLOOD SPECIMENOrdering Facility: [facility] Address: [address] [place] [address] Performed By: #### 2 4321-2 ####[facility]ORATORYCLIA [id number] [address] Sodium [Moles/Vol] 145 mmol/L High 136-144 [facility] Comment on above: Order Comment: Speci men Type: BLOOD SPECIMENOrdering Facility: [facility] Address: [address] [place] [address] Performed By: #### 2 4321-2 ####[facility] LABORATORYCLIA [id number] [address] STATES [facility] Urea nitrogen [Mass/Vol] 39 mg/dL High 9-24 [facility] Comment on above: Order Comment: Speci men Type: BLOOD SPECIMENOrdering Facility: [facility] Address: [address] [place] [address] Performed By: #### 2 4321-2 ####[facility] LABORATORYCLIA [id number] [address] [place] CASE MANAGEMon 07-22-2021 CASE MANAGEM Normal [facility] CBC W Auto Differential pane l (Bld)on 07-22-2021 Basophils (Bld) [#/Vol] 0.06 10*3/uL Normal <0.11 [facility] Comment on above: Order Comment: Speci men Type: BLOOD SPECIMENOrdering Facility: [facility] Address: [address] [place] [address] Performed By: #### 5 7021-8 ####[facility]ORATORYCLIA [id number] [address] [place] Basophils/100 WBC (Bld) 0.5 % Normal [facility] Comment on above: Order Comment: Speci men Type: BLOOD SPECIMENOrdering Facility: [facility] Address: [address] [place] [address] Performed By: #### 5 7021-8 ####[facility]ATORYCLIA [id number] [address] Differential cell count method Nom (Bld) Auto Normal [facility] Comment on above: Order Comment: Speci men Type: BLOOD SPECIMENOrdering Facility: [facility] Address: [address] [place] [address] Performed By: #### 5 7021-8 ####[facility] LABORATORYCLIA [id number] [address] [place] Eosinophils (Bld) [#/Vol] 0.44 10*3/uL Normal <0.46 [facility] Comment on above: Order Comment: Speci men Type: BLOOD SPECIMENOrdering Facility: [facility] Address: [address] [place] [address] Performed By: #### 5 7021-8 ####[facility]ATORYCLIA [id number] [address] [place] Eosinophils/100 WBC (Bld) 3.9 % Normal [facility] Comment on above: Order Comment: Speci men Type: BLOOD SPECIMENOrdering Facility: [facility] Address: [address] [place] [address] Performed By: #### 5 7021-8 ####[facility] LABORATORYCLIA [id number] [address] Erythrocyte distribution width (RBC) [Ratio] 17.0 % High 11.5-15.0 [facility] Comment on above: Order Comment: Speci men Type: BLOOD SPECIMENOrdering Facility: [facility] Address: [address] [place] [address] Performed By: #### 5 7021-8 ####[facility]ORATORYCLIA [id number] [address] Hematocrit (Bld) [Volume fraction] 32.0 % Low 39.0-51.0 [facility] Comment on above: Order Comment: Speci men Type: BLOOD SPECIMENOrdering Facility: [facility] Address: [address] [place] [address] Performed By: #### 5 7021-8 ####[facility] LABORATORYCLIA [id number] [address] Hemoglobin (Bld) [Mass/Vol] 9.3 g/dL Low 13.0-17.0 [facility] Comment on above: Order Comment: Speci men Type: BLOOD SPECIMENOrdering Facility: [facility] Address: [address] [place] [address] Performed By: #### 5 7021-8 ####[facility]ORATORYCLIA [id number] [address] IMMATURE GRAN % 0.5 % Normal [facility] Comment on above: Order Comment: Speci men Type: BLOOD SPECIMENOrdering Facility: [facility] Address: [address] [place] [address] Performed By: #### 5 7021-8 ####[facility]ORATORYCLIA [id number] [address] IMMATURE GRAN ABS 0.06 k/uL Normal <0.10 [facility] Comment on above: Order Comment: Speci men Type: BLOOD SPECIMENOrdering Facility: [facility] Address: [address] [place] [address] Performed By: #### 5 7021-8 ####[facility] LABORATORYCLIA [id number] [address] Lymphocytes (Bld) [#/Vol] 1.83 10*3/uL Normal 1.00-4.00 [facility] Comment on above: Order Comment: Speci men Type: BLOOD SPECIMENOrdering Facility: [facility] Address: [address] [place] [address] Performed By: #### 5 7021-8 ####[facility]ORATORYCLIA [id number] [address] Lymphocytes/100 WBC (Bld) 16.1 % Normal [facility] Comment on above: Order Comment: Speci men Type: BLOOD SPECIMENOrdering Facility: [facility] Address: [address] [place] [address] Performed By: #### 5 7021-8 ####[facility]ORATORYCLIA [id number] [address] MCH (RBC) [Entitic mass] 27.0 pg Normal 26.0-34.0 [facility] Comment on above: Order Comment: Speci men Type: BLOOD SPECIMENOrdering Facility: [facility] Address: [address] [place] [address] Performed By: #### 5 7021-8 ####[facility] LABORATORYCLIA [id number] [address] STATES [facility] MCHC (RBC) [Mass/Vol] 29.1 g/dL Low 30.5-36.0 [facility] Comment on above: Order Comment: Speci men Type: BLOOD SPECIMENOrdering Facility: [facility] Address: [address] [place] [address] Performed By: #### 5 7021-8 ####[facility] LABORATORYCLIA [id number] [address] [place] [facility] MCV (RBC) [Entitic vol] 92.8 fL Normal 80.0-100.0 [facility] Comment on above: Order Comment: Speci men Type: BLOOD SPECIMENOrdering Facility: [facility] Address: [address] [place] [address] Performed By: #### 5 7021-8 ####[facility] LABORATORYCLIA [id number] [place] [address] [place] Monocytes (Bld) [#/Vol] 0.87 10*3/uL High <0.87 [facility] Comment on above: Order Comment: Speci men Type: BLOOD SPECIMENOrdering Facility: [facility] Address: [address] [place] [address] Performed By: #### 5 7021-8 ####[facility] LABORATORYCLIA [id number] [address] [place] Monocytes/100 WBC (Bld) 7.6 % Normal [facility] Comment on above: Order Comment: Speci men Type: BLOOD SPECIMENOrdering Facility: [facility] Address: [address] [place] [address] Performed By: #### 5 7021-8 ####[facility] LABORATORYCLIA [id number] [address] [place] Neutrophils (Bld) [#/Vol] 8.12 10*3/uL High 1.45-7.50 [facility] Comment on above: Order Comment: Speci men Type: BLOOD SPECIMENOrdering Facility: [facility] Address: [address] [place] [address] Performed By: #### 5 7021-8 ####[facility]ORATORYCLIA [id number] [address] STATES [facility] Neutrophils/100 WBC (Bld) 71.4 % Normal [facility] Comment on above: Order Comment: Speci men Type: BLOOD SPECIMENOrdering Facility: [facility] Address: [address] [place] [address] Performed By: #### 5 7021-8 ####[facility] LABORATORYCLIA [id number] [place] [address] [place] Nucleated RBC (Bld) [#/Vol] 10*3/uL Normal <0.01 [facility] Comment on above: Order Comment: Speci men Type: BLOOD SPECIMENOrdering Facility: [facility] Address: [address] [place] [address] Performed By: #### 5 7021-8 ####[facility] LABORATORYCLIA [id number] [address] [place] Nucleated RBC/100 WBC (Bld) [Ratio] 0.0 /100 WBC Normal [facility] Comment on above: Order Comment: Speci men Type: BLOOD SPECIMENOrdering Facility: [facility] Address: [address] [place] [address] Performed By: #### 5 7021-8 ####[facility] LABORATORYCLIA [id number] [address] [place] Platelet mean volume (Bld) [Entitic vol] 10.8 fL Normal 9.0-12.7 [facility] Comment on above: Order Comment: Speci men Type: BLOOD SPECIMENOrdering Facility: [facility] Address: [address] [place] [address] Performed By: #### 5 7021-8 ####[facility] LABORATORYCLIA [id number] [address] Platelets (Bld) [#/Vol] 362 10*3/uL Normal 150-400 [facility] Comment on above: Order Comment: Speci men Type: BLOOD SPECIMENOrdering Facility: [facility] Address: [address] [place] [address] Performed By: #### 5 7021-8 ####[facility] LABORATORYCLIA [id number] [address] [place] RBC (Bld) [#/Vol] 3.45 10*6/uL Low 4.20-6.00 [facility] Comment on above: Order Comment: Speci men Type: BLOOD SPECIMENOrdering Facility: [facility] Address: [address] [place] [address] Performed By: #### 5 7021-8 ####[facility] LABORATORYCLIA [id number] [address] [place] WBC (Bld) [#/Vol] 11.38 10*3/uL High 3.70-11.00 [facility] Comment on above: Order Comment: Speci men Type: BLOOD SPECIMENOrdering Facility: [facility] Address: [address] [place] [address] Performed By: #### 5 7021-8 ####[facility] LABORATORYCLIA [id number] [address] [place] Magnesium SerPl-mCncon 07-22 Magnesium [Mass/Vol] 2.3 mg/dL Normal 1.7-2.3 [facility] Comment on above: Order Comment: Speci men Type: BLOOD SPECIMENOrdering Facility: [facility] Address: [address] [place] [address] Performed By: #### 1 9123-9, 2777-1, 58296-6 ####[facility] [id number] [address] [place] NT-proBNP SerPl-mCncon 07-22 Natriuretic peptide.B prohormone N-Terminal [Mass/Vol] 328 pg/mL High <125 [facility] Comment on above: Order Comment: Speci men Type: BLOOD SPECIMENOrdering Facility: [facility] Address: [address] [place] [address] Performed By: #### 1 9123-9, 2777-1, 10282-4 ####[facility]ORATORYCLIA [id number] [address] [place] NURSING PROGon 07-22-2021 NURSING PROG Normal [facility] NUTRITIONon 07-22-2021 NUTRITION Normal [facility] Phosphate SerPl-mCncon 07-22 Phosphate [Mass/Vol] 3.5 mg/dL Normal 2.7-4.8 [facility] Comment on above: Order Comment: Speci men Type: BLOOD SPECIMENOrdering Facility: [facility] Address: [address] [place] [address] Performed By: #### 1 9123-9, 2777-1, 01445-9 ####[facility]ORATORYCLIA [id number] [address] THERAPY NTon 07-22-2021 THERAPY NT Normal [facility] THERAPY NT Normal [facility] aPTT PPPon 07-22-2021 aPTT Coag (PPP) [Time] 50.1 s High 23.0-32.4 [facility] Comment on above: Order Comment: Speci men Type: BLOOD SPECIMENOrdering Facility: [facility] [facility] Address: [address] [place] [address] Performed By: #### 1 4979-9 ####[facility] LABORATORYCLIA [id number] [address] [place] ALLIED HEALTHon 07-21-2021 ALLIED HEALTH Normal [facility] Bacteria Spec Resp Culton Bacteria identified Respiratory culture Nom (Unsp spec) Abnormal [facility] Comment on above: Performed By: #### 3 2355-0 ####[facility] LABORATORYCLIA [id number] [address] [place] Basic metabolic 2000 panelon 07-21-2021 Anion gap [Moles/Vol] 9 mmol/L Normal 9-18 [facility] Comment on above: Order Comment: Speci men Type: BLOOD SPECIMENOrdering Facility: [facility] Address: [facility] [place] [address] Performed By: #### 1 9123-9, 2777-1, 21634-5 ####[facility] LABORATORYCLIA [id number] [address] [place] Calcium [Mass/Vol] 9.9 mg/dL Normal 8.5-10.2 [facility] Comment on above: Order Comment: Speci men Type: BLOOD SPECIMENOrdering Facility: [facility] Address: [address] [place] [address] Performed By: #### 1 9123-9, 2777-1, 33780-1 ####[facility] LABORATORYCLIA [id number] [address] Chloride [Moles/Vol] 103 mmol/L Normal 97-105 [facility] Comment on above: Order Comment: Speci men Type: BLOOD SPECIMENOrdering Facility: [facility] Address: [address] [place] [address] Performed By: #### 1 9123-9, 2777, ####[facility] LABORATORYCLIA [id number] [address] STATES OF [facility] CO2 [Moles/Vol] 33 mmol/L High 22-30 [facility] Comment on above: Order Comment: Speci men Type: BLOOD SPECIMENOrdering Facility: [facility] Address: [address] [place] [address] Performed By: #### 1 9123-9, 27711-04, ####[facility] LABORATORYCLIA [id number] [address] OF [facility] Creatinine [Mass/Vol] 0.80 mg/dL Normal 0.73-1.22 [facility] Comment on above: Order Comment: Speci men Type: BLOOD SPECIMENOrdering Facility: [facility] Address: [address] [place] [address] Performed By: #### 1 9123-9, 27711-04, ####[facility] LABORATORYCLIA [id number] [address] ESTIMATED GLOMERULAR FILTRATION RATE 96 mL/min/1.73m??? Normal >=60 [facility] Comment on above: Order Comment: Speci men Type: BLOOD SPECIMENOrdering Facility: [facility] Address: [address] [place] [address] Result Comment: Luzmaria mated Glomerular Filtration Rate [...] GFR. Performed By: #### 1 9123-9, 27711-04, 17344-5 ####[facility]ORATORYCLIA [id number] [place] [address] [place] Glucose [Mass/Vol] 148 mg/dL High 74-99 [facility] Comment on above: Order Comment: Speci men Type: BLOOD SPECIMENOrdering Facility: [facility] Address: [address] [place] [address] Result Comment: The [place] [employer] (ADA) provides guidance for cutoff [...] Standards of Medical Care in Diabetes 2016, [place] [employer]. Diabetes Care. 2016.39(Suppl 1). Performed By: #### 1 9123-9, 2777, 67021-5 ####[facility]ORATORYCLIA [id number] [place] [address] [place] Potassium [Moles/Vol] 4.1 mmol/L Normal 3.7-5.1 [facility] Comment on above: Order Comment: Speci men Type: BLOOD SPECIMENOrdering Facility: [facility] Address: [address] [place] [address] Performed By: #### 1 9123-9, 27711-04, 60927-4 ####[facility]ORATORYCLIA [id number] [place] [address] [place] Sodium [Moles/Vol] 145 mmol/L High 136-144 [facility] Comment on above: Order Comment: Speci men Type: BLOOD SPECIMENOrdering Facility: [facility] Address: [address] [place] [address] Performed By: #### 1 9123-9, 27711-04, 00018-2 ####[facility]ORATORYCLIA [id number] [address] STATES [facility] Urea nitrogen [Mass/Vol] 40 mg/dL High 9-24 [facility] Comment on above: Order Comment: Speci men Type: BLOOD SPECIMENOrdering Facility: [facility] Address: [address] [place] [address] Performed By: #### 1 9123-9, 2777-1, 74213-1 ####[facility]ORATORYCLIA [id number] [place] [address] [place] CBC W Auto Differential pane l (Bld)on 07-21-2021 Basophils (Bld) [#/Vol] 0.06 10*3/uL Normal <0.11 [facility] Comment on above: Order Comment: Speci men Type: BLOOD SPECIMENOrdering Facility: [facility] Address: [address] [place] [address] Performed By: #### 5 7021-8 ####[facility] LABORATORYCLIA [id number] [address] [place] Basophils/100 WBC (Bld) 0.4 % Normal [facility] Comment on above: Order Comment: Speci men Type: BLOOD SPECIMENOrdering Facility: [facility] Address: [address] [place] [address] Performed By: #### 5 7021-8 ####[facility]ORATORYCLIA [id number] [address] Differential cell count method Nom (Bld) Auto Normal [facility] Comment on above: Order Comment: Speci men Type: BLOOD SPECIMENOrdering Facility: [facility] Address: [address] [place] [address] Performed By: #### 5 7021-8 ####[facility]ORATORYCLIA [id number] [place] [address] [place] Eosinophils (Bld) [#/Vol] 0.04 10*3/uL Normal <0.46 [facility] Comment on above: Order Comment: Speci men Type: BLOOD SPECIMENOrdering Facility: [facility] Address: [address] [place] [address] Performed By: #### 5 7021-8 ####[facility]ORATORYCLIA [id number] [address] [place] Eosinophils/100 WBC (Bld) 0.3 % Normal [facility] Comment on above: Order Comment: Speci men Type: BLOOD SPECIMENOrdering Facility: [facility] Address: [address] [place] [address] Performed By: #### 5 7021-8 ####[facility] LABORATORYCLIA [id number] [address] Erythrocyte distribution width (RBC) [Ratio] 17.0 % High 11.5-15.0 [facility] Comment on above: Order Comment: Speci men Type: BLOOD SPECIMENOrdering Facility: [facility] Address: [address] [place] [address] Performed By: #### 5 7021-8 ####[facility]ORATORYCLIA [id number] [address] Hematocrit (Bld) [Volume fraction] 33.1 % Low 39.0-51.0 [facility] Comment on above: Order Comment: Speci men Type: BLOOD SPECIMENOrdering Facility: [facility] Address: [address] [place] [address] Performed By: #### 5 7021-8 ####[facility]ORATORYCLIA [id number] [address] [place] Hemoglobin (Bld) [Mass/Vol] 9.7 g/dL Low 13.0-17.0 [facility] Comment on above: Order Comment: Speci men Type: BLOOD SPECIMENOrdering Facility: [facility] Address: [address] [place] [address] Performed By: #### 5 7021-8 ####[facility]ORATORYCLIA [id number] [address] IMMATURE GRAN % 0.5 % Normal [facility] Comment on above: Order Comment: Speci men Type: BLOOD SPECIMENOrdering Facility: [facility] Address: [address] [place] [address] Performed By: #### 5 7021-8 ####[facility]ORATORYCLIA [id number] [address] IMMATURE GRAN ABS 0.07 k/uL Normal <0.10 [facility] Comment on above: Order Comment: Speci men Type: BLOOD SPECIMENOrdering Facility: [facility] Address: [address] [place] [address] Performed By: #### 5 7021-8 ####[facility] LABORATORYCLIA [id number] [address] Lymphocytes (Bld) [#/Vol] 1.99 10*3/uL Normal 1.00-4.00 [facility] Comment on above: Order Comment: Speci men Type: BLOOD SPECIMENOrdering Facility: [facility] Address: [address] [place] [address] Performed By: #### 5 7021-8 ####[facility]ORATORYCLIA [id number] [address] Lymphocytes/100 WBC (Bld) 13.4 % Normal [facility] Comment on above: Order Comment: Speci men Type: BLOOD SPECIMENOrdering Facility: [facility] Address: [address] [place] [address] Performed By: #### 5 7021-8 ####[facility] LABORATORYCLIA [id number] [address] STATES [facility] MCH (RBC) [Entitic mass] 27.2 pg Normal 26.0-34.0 [facility] Comment on above: Order Comment: Speci men Type: BLOOD SPECIMENOrdering Facility: [facility] Address: [address] [place] [address] Performed By: #### 5 7021-8 ####[facility]ORATORYCLIA [id number] [address] [place] MCHC (RBC) [Mass/Vol] 29.3 g/dL Low 30.5-36.0 [facility] Comment on above: Order Comment: Speci men Type: BLOOD SPECIMENOrdering Facility: [facility] Address: [address] [place] [address] Performed By: #### 5 7021-8 ####[facility]ORATORYCLIA [id number] [address] [place] MCV (RBC) [Entitic vol] 92.7 fL Normal 80.0-100.0 [facility] Comment on above: Order Comment: Speci men Type: BLOOD SPECIMENOrdering Facility: [facility] Address: [address] [place] [address] Performed By: #### 5 7021-8 ####[facility]ORATORYCLIA [id number] [address] [place] Monocytes (Bld) [#/Vol] 1.10 10*3/uL High <0.87 [facility] Comment on above: Order Comment: Speci men Type: BLOOD SPECIMENOrdering Facility: [facility] Address: [address] [place] [address] Performed By: #### 5 7021-8 ####[facility]ORATORYCLIA [id number] [address] STATES OF [facility] Monocytes/100 WBC (Bld) 7.4 % Normal [facility] Comment on above: Order Comment: Speci men Type: BLOOD SPECIMENOrdering Facility: [facility] Address: [address] [place] [address] Performed By: #### 5 7021-8 ####[facility] LABORATORYCLIA [id number] [address] [place] Neutrophils (Bld) [#/Vol] 11.61 10*3/uL High 1.45-7.50 [facility] Comment on above: Order Comment: Speci men Type: BLOOD SPECIMENOrdering Facility: [facility] Address: [address] [place] [address] Performed By: #### 5 7021-8 ####[facility]ORATORYCLIA [id number] [address] Neutrophils/100 WBC (Bld) 78.0 % Normal [facility] Comment on above: Order Comment: Speci men Type: BLOOD SPECIMENOrdering Facility: [facility] Address: [address] [place] [address] Performed By: #### 5 7021-8 ####[facility]ORATORYCLIA [id number] [address] Nucleated RBC (Bld) [#/Vol] 10*3/uL Normal <0.01 [facility] Comment on above: Order Comment: Speci men Type: BLOOD SPECIMENOrdering Facility: [facility] Address: [address] [place] [address] Performed By: #### 5 7021-8 ####[facility]ORATORYCLIA [id number] [address] Nucleated RBC/100 WBC (Bld) [Ratio] 0.0 /100 WBC Normal [facility] Comment on above: Order Comment: Speci men Type: BLOOD SPECIMENOrdering Facility: [facility] Address: [address] [place] [address] Performed By: #### 5 7021-8 ####[facility]ORATORYCLIA [id number] [address] Platelet mean volume (Bld) [Entitic vol] 10.4 fL Normal 9.0-12.7 [facility] Comment on above: Order Comment: Speci men Type: BLOOD SPECIMENOrdering Facility: [facility] Address: [address] [place] [address] Performed By: #### 5 7021-8 ####[facility]ORATORYCLIA [id number] [address] [place] Platelets (Bld) [#/Vol] 396 10*3/uL Normal 150-400 [facility] Comment on above: Order Comment: Speci men Type: BLOOD SPECIMENOrdering Facility: [facility] Address: [address] [place] [address] Performed By: #### 5 7021-8 ####[facility]ORATORYCLIA [id number] [place] [address] [place] RBC (Bld) [#/Vol] 3.57 10*6/uL Low 4.20-6.00 [facility] Comment on above: Order Comment: Speci men Type: BLOOD SPECIMENOrdering Facility: [facility] Address: [address] [place] [address] Performed By: #### 5 7021-8 ####[facility]ORATORYCLIA [id number] [address] STATES OF [facility] WBC (Bld) [#/Vol] 14.87 10*3/uL High 3.70-11.00 [facility] Comment on above: Order Comment: Speci men Type: BLOOD SPECIMENOrdering Facility: [facility] Address: [address] [place] [address] Performed By: #### 5 7021-8 ####[facility]ORATORYCLIA [id number] [address] OF [facility] Gas and Carbon monoxide pane l (BldV)on 07-21-2021 Base excess Calc (BldV) [Moles/Vol] 7 mmol/L High 0-2 [facility] Comment on above: Order Comment: Speci men Type: VENOUS BLOOD SPECIMENOrdering Facility: [facility] Address: [address] [place] [address] Performed By: #### 2 4344-4 ####[facility]ORATORYCLIA [id number] [address] Body temperature 98.6 [degF] Normal [facility] Comment on above: Order Comment: Speci men Type: VENOUS BLOOD SPECIMENOrdering Facility: [facility] Address: [address] [place] [address] Performed By: #### 2 4344-4 ####[facility]ORATORYCLIA [id number] [address] CALCIUM IONIZED, PH CORRECTED 1.21 mmol/L Normal 1.08-1.30 [facility] Comment on above: Order Comment: Speci men Type: VENOUS BLOOD SPECIMENOrdering Facility: [facility] Address: [address] [place] [address] Performed By: #### 2 4344-4 ####[facility]ORATORYCLIA [id number] [address] [place] Calcium.ionized (BldV) [Mass/Vol] 1.23 mmol/L Normal 1.08-1.30 [facility] Comment on above: Order Comment: Speci men Type: VENOUS BLOOD SPECIMENOrdering Facility: [facility] Address: [address] [place] [address] Performed By: #### 2 4344-4 ####[facility]ORATORYCLIA [id number] [address] Carboxyhemoglobin (BldV) [Mass fraction] 2.3 % High 0.0-2.0 [facility] Comment on above: Order Comment: Speci men Type: VENOUS BLOOD SPECIMENOrdering Facility: [facility] Address: [address] [place] [address] Result Comment: Carb oxyhemoglobin Reference Range for Smokers: 2.0-8.0% Performed By: #### 2 4344-4 ####[facility]ORATORYCLIA [id number] [address] [place] CO2 (BldV) [Partial pressure] 58 mm[Hg] High 42-55 [facility] Comment on above: Order Comment: Speci men Type: VENOUS BLOOD SPECIMENOrdering Facility: [facility] Address: [address] [place] [address] Performed By: #### 2 4344-4 ####[facility] LABORATORYCLIA [id number] [place] [address] [place] CO2 [Moles/Vol] 31 mmol/L High 25-29 [facility] Comment on above: Order Comment: Speci men Type: VENOUS BLOOD SPECIMENOrdering Facility: [facility] Address: [address] [place] [address] Performed By: #### 2 4344-4 ####[facility] LABORATORYCLIA [id number] [place] [address] [place] Glucose [Mass/Vol] 146 mg/dL High 60-105 [facility] Comment on above: Order Comment: Speci men Type: VENOUS BLOOD SPECIMENOrdering Facility: [facility] Address: [address] [place] [address] Performed By: #### 2 4344-4 ####[facility]ORATORYCLIA [id number] [place] [address] [place] HCO3 (Bld) [Moles/Vol] 33 mmol/L High 24-28 [facility] Comment on above: Order Comment: Speci men Type: VENOUS BLOOD SPECIMENOrdering Facility: [facility] Address: [address] [place] [address] Performed By: #### 2 4344-4 ####[facility]ORATORYCLIA [id number] [address] [place] Hematocrit (Bld) [Volume fraction] 30.1 % Low 39.0-51.0 [facility] Comment on above: Order Comment: Speci men Type: VENOUS BLOOD SPECIMENOrdering Facility: [facility] Address: [address] [place] [address] Performed By: #### 2 4344-4 ####[facility]ORATORYCLIA [id number] [place] [address] [place] Hemoglobin (Bld) [Mass/Vol] 9.7 g/dL Low 13.0-17.0 [facility] Comment on above: Order Comment: Speci men Type: VENOUS BLOOD SPECIMENOrdering Facility: [facility] Address: [address] [place] [address] Performed By: #### 2 4344-4 ####[facility] LABORATORYCLIA [id number] [address] [place] Methemoglobin (Bld) [Mass fraction] % Normal 0.0-1.5 [facility] Comment on above: Order Comment: Speci men Type: VENOUS BLOOD SPECIMENOrdering Facility: [facility] Address: [address] [place] [address] Performed By: #### 2 4344-4 ####[facility]ORATORYCLIA [id number] [address] [place] O2 THERAPY NC = Nasal Cannula Normal [facility] Comment on above: Order Comment: Speci men Type: VENOUS BLOOD SPECIMENOrdering Facility: [facility] Address: [address] [place] [address] Performed By: #### 2 4344-4 ####[facility]ORATORYCLIA [id number] [address] [place] Oxygen (BldV) [Partial pressure] 64 mm[Hg] High 35-45 [facility] Comment on above: Order Comment: Speci men Type: VENOUS BLOOD SPECIMENOrdering Facility: [facility] Address: [address] [place] [address] Performed By: #### 2 4344-4 ####[facility]ORATORYCLIA [id number] [address] [place] Oxygen saturation in Blood 90 % High 60-85 [facility] Comment on above: Order Comment: Speci men Type: VENOUS BLOOD SPECIMENOrdering Facility: [facility] Address: [address] [place] [address] Performed By: #### 2 4344-4 ####[facility] LABORATORYCLIA [id number] [address] [place] Oxyhemoglobin (BldV) [Mass fraction] 87 % High 60-85 [facility] Comment on above: Order Comment: Speci men Type: VENOUS BLOOD SPECIMENOrdering Facility: [facility] Address: [address] [place] [place] [address] Performed By: #### 2 4344-4 ####[facility]ORATORYCLIA [id number] [place] [address] [place] pH (BldV) 7.38 [pH] Normal 7.32-7.42 [facility] Comment on above: Order Comment: Speci men Type: VENOUS BLOOD SPECIMENOrdering Facility: [facility] Address: [address] [place] [address] Performed By: #### 2 4344-4 ####[facility]ORATORYCLIA [id number] [address] [place] Potassium [Moles/Vol] 3.8 mmol/L Normal 3.5-5.0 [facility] Comment on above: Order Comment: Speci men Type: VENOUS BLOOD SPECIMENOrdering Facility: [facility] Address: [address] [place] [address] Performed By: #### 2 4344-4 ####[facility]ORATORYCLIA [id number] [address] [place] Sodium [Moles/Vol] 145 mmol/L High 136-144 [facility] Comment on above: Order Comment: Speci men Type: VENOUS BLOOD SPECIMENOrdering Facility: [facility] Address: [address] [place] [address] Performed By: #### 2 4344-4 ####[facility] LABORATORYCLIA [id number] [place] [address] [place] Base excess Calc (BldV) [Moles/Vol] 8 mmol/L High 0-2 [facility] Comment on above: Order Comment: Speci men Type: VENOUS BLOOD SPECIMENOrdering Facility: [facility] Address: [facility] [place] [address] Performed By: #### 2 4344-4 ####[facility] LABORATORYCLIA [id number] [address] [place] Body temperature 100.22 [degF] Normal [facility] Comment on above: Order Comment: Speci men Type: VENOUS BLOOD SPECIMENOrdering Facility: [facility] Address: [address] [place] [address] Performed By: #### 2 4344-4 ####[facility] LABORATORYCLIA [id number] [address] OF [facility] CALCIUM IONIZED, PH CORRECTED 1.25 mmol/L Normal 1.08-1.30 [facility] Comment on above: Order Comment: Speci men Type: VENOUS BLOOD SPECIMENOrdering Facility: [facility] Address: [address] [place] [address] Performed By: #### 2 4344-4 ####[facility]ORATORYCLIA [id number] [address] [place] Calcium.ionized (BldV) [Mass/Vol] 1.24 mmol/L Normal 1.08-1.30 [facility] Comment on above: Order Comment: Speci men Type: VENOUS BLOOD SPECIMENOrdering Facility: [facility] Address: [address] [place] [address] Performed By: #### 2 4344-4 ####[facility]ORATORYCLIA [id number] [address] [place] Carboxyhemoglobin (BldV) [Mass fraction] 2.5 % High 0.0-2.0 [facility] Comment on above: Order Comment: Speci men Type: VENOUS BLOOD SPECIMENOrdering Facility: [facility] Address: [address] [place] [address] Result Comment: Carb oxyhemoglobin Reference Range for Smokers: 2.0-8.0% Performed By: #### 2 4344-4 ####[facility]ORATORYCLIA [id number] [address] [place] CO2 (BldV) [Partial pressure] 53 mm[Hg] Normal 42-55 [facility] Comment on above: Order Comment: Speci men Type: VENOUS BLOOD SPECIMENOrdering Facility: [facility] Address: [address] [place] [address] Performed By: #### 2 4344-4 ####[facility]ORATORYCLIA [id number] [address] [place] CO2 [Moles/Vol] 31 mmol/L High 25-29 [facility] Comment on above: Order Comment: Speci men Type: VENOUS BLOOD SPECIMENOrdering Facility: [facility] Address: [address] [place] [address] Performed By: #### 2 4344-4 ####[facility]ORATORYCLIA [id number] [address] [place] CO2 adjusted to patient's actual temperature (BldV) [Partial pressure] 56 mmHg High 42-55 [facility] Comment on above: Order Comment: Speci men Type: VENOUS BLOOD SPECIMENOrdering Facility: [facility] Address: [address] [place] [address] Performed By: #### 2 4344-4 ####[facility]ORATORYCLIA [id number] [address] [place] Glucose [Mass/Vol] 131 mg/dL High 60-105 [facility] Comment on above: Order Comment: Speci men Type: VENOUS BLOOD SPECIMENOrdering Facility: [facility] Address: [address] [place] [address] Performed By: #### 2 4344-4 ####[facility] LABORATORYCLIA [id number] [address] [place] HCO3 (Bld) [Moles/Vol] 33 mmol/L High 24-28 [facility] Comment on above: Order Comment: Speci men Type: VENOUS BLOOD SPECIMENOrdering Facility: [facility] Address: [address] [place] [address] Performed By: #### 2 4344-4 ####[facility] [place] [facility]ORATORYCLIA [id number] [address] [place] Hematocrit (Bld) [Volume fraction] 30.8 % Low 39.0-51.0 [facility] Comment on above: Order Comment: Speci men Type: VENOUS BLOOD SPECIMENOrdering Facility: [facility] Address: [address] [address] Performed By: #### 2 4344-4 ####[facility]ORATORYCLIA [id number] [address] Hemoglobin (Bld) [Mass/Vol] 10.0 g/dL Low 13.0-17.0 [facility] Comment on above: Order Comment: Speci men Type: VENOUS BLOOD SPECIMENOrdering Facility: [facility] Address: [address] [place] [address] Performed By: #### 2 4344-4 ####[facility] LABORATORYCLIA [id number] [address] Methemoglobin (Bld) [Mass fraction] % Normal 0.0-1.5 [facility] Comment on above: Order Comment: Speci men Type: VENOUS BLOOD SPECIMENOrdering Facility: [facility] Address: [address] [place] [address] Performed By: #### 2 4344-4 ####[facility] LABORATORYCLIA [id number] [address] O2 THERAPY NC = Nasal Cannula Normal [facility] Comment on above: Order Comment: Speci men Type: VENOUS BLOOD SPECIMENOrdering Facility: [facility] Address: [address] [place] [address] Performed By: #### 2 4344-4 ####[facility]ORATORYCLIA [id number] [address] Oxygen (BldV) [Partial pressure] 58 mm[Hg] High 35-45 [facility] Comment on above: Order Comment: Speci men Type: VENOUS BLOOD SPECIMENOrdering Facility: [facility] Address: [address] [place] [address] Performed By: #### 2 4344-4 ####[facility]ATORYCLIA [id number] [address] Oxygen adjusted to patient's actual temperature (BldV) [Partial pressure] 61 mmHg High 35-45 [facility] Comment on above: Order Comment: Speci men Type: VENOUS BLOOD SPECIMENOrdering Facility: [facility] Address: [address] [address] Performed By: #### 2 4344-4 ####[facility]ORATORYCLIA [id number] [address] [place] Oxygen saturation in Blood 88 % High 60-85 [facility] Comment on above: Order Comment: Speci men Type: VENOUS BLOOD SPECIMENOrdering Facility: [facility] Address: [address] [place] [address] Performed By: #### 2 4344-4 ####[facility]ORATORYCLIA [id number] [address] [place] Oxyhemoglobin (BldV) [Mass fraction] 85 % Normal 60-85 [facility] Comment on above: Order Comment: Speci men Type: VENOUS BLOOD SPECIMENOrdering Facility: [facility] Address: [address] [place] [address] Performed By: #### 2 4344-4 ####[facility] LABORATORYCLIA [id number] [address] [place] pH (BldV) 7.41 [pH] Normal 7.32-7.42 [facility] Comment on above: Order Comment: Speci men Type: VENOUS BLOOD SPECIMENOrdering Facility: [facility] Address: [address] [place] [address] Performed By: #### 2 4344-4 ####[facility]ORATORYCLIA [id number] [address] [place] pH adjusted to patient's actual temperature (BldV) 7.40 Normal 7.32-7.42 [facility] Comment on above: Order Comment: Speci men Type: VENOUS BLOOD SPECIMENOrdering Facility: [facility] Address: [address] [place] [address] Performed By: #### 2 4344-4 ####[facility]ORATORYCLIA [id number] [address] STATES OF [facility] Potassium [Moles/Vol] 4.0 mmol/L Normal 3.5-5.0 [facility] Comment on above: Order Comment: Speci men Type: VENOUS BLOOD SPECIMENOrdering Facility: [facility] Address: [address] [place] [address] Performed By: #### 2 4344-4 ####[facility] [place]ORATORYCLIA [id number] [address] Sodium [Moles/Vol] 146 mmol/L High 136-144 [facility] Comment on above: Order Comment: Speci men Type: VENOUS BLOOD SPECIMENOrdering Facility: [facility] Address: [address] [place] [address] Performed By: #### 2 4344-4 ####[facility]ORATORYCLIA [id number] [address] Magnesium [facility]-21 Magnesium [Mass/Vol] 2.5 mg/dL High 1.7-2.3 [facility] Comment on above: Order Comment: Speci men Type: BLOOD SPECIMENOrdering Facility: [facility] Address: [address] [place] [address] Performed By: #### 1 9123-9, 2777-1, 72299-7 ####[facility]ORATORYCLIA [id number] [address] [place] NURSING PROGon 07-21-2021 NURSING PROG Normal [facility] Phosphate SerPl-mCncon 07-21 Phosphate [Mass/Vol] 3.7 mg/dL Normal 2.7-4.8 [facility] Comment on above: Order Comment: Speci men Type: BLOOD SPECIMENOrdering Facility: [facility] Address: [address] [place] [address] Performed By: #### 1 9123-9, 2777-1, 06276-2 ####[facility]ORATORYCLIA [id number] [address] [place] THERAPY NTon 07-21-2021 THERAPY NT Normal [facility] XR CHEST 1V FRONTALon 2021 XR CHEST 1V FRONTAL Normal [facility] aPTT PPPon 07-21-2021 aPTT Coag (PPP) [Time] 53.0 s High 23.0-32.4 [facility] Comment on above: Order Comment: Speci men Type: BLOOD SPECIMENOrdering Facility: [facility] Address: [address] [place] [address] Performed By: #### 1 4979-9 ####[facility] [place]ORATORYCLIA [id number] [address] [place] ALLIED HEALTHon 07-20-2021 ALLIED HEALTH Normal [facility] Basic metabolic 2000 panelon 07-20-2021 Anion gap [Moles/Vol] 8 mmol/L Low 9-18 [facility] Comment on above: Order Comment: Speci men Type: BLOOD SPECIMENOrdering Facility: [facility] Address: [address] [place] [address] Performed By: #### 2 4321-2, , 2777- ####[facility] [place]ORATORYCLIA [id number] [place] [address] [place] Calcium [Mass/Vol] 9.7 mg/dL Normal 8.5-10.2 [facility] Comment on above: Order Comment: Speci men Type: BLOOD SPECIMENOrdering Facility: [facility] Address: [address] [place] [address] Performed By: #### 2 4321-2, 80589-8, 2777- ####[facility] [place]ORATORYCLIA [id number] [place] [address] [place] Chloride [Moles/Vol] 104 mmol/L Normal 97-105 [facility] Comment on above: Order Comment: Speci men Type: BLOOD SPECIMENOrdering Facility: [facility] Address: [address] [place] [address] Performed By: #### 2 4321-2, , 2776-05 ####[facility] [place]ORATORYCLIA [id number] [place] [address] [place] CO2 [Moles/Vol] 34 mmol/L High 22-30 [facility] Comment on above: Order Comment: Speci men Type: BLOOD SPECIMENOrdering Facility: [facility] Address: [address] [place] [address] Performed By: #### 2 4321-2, , 2776-05 ####[facility] [place] [facility]ORATORYCLIA [id number] [address] STATES OF [facility] Creatinine [Mass/Vol] 0.76 mg/dL Normal 0.73-1.22 [facility] Comment on above: Order Comment: Speci men Type: BLOOD SPECIMENOrdering Facility: [facility] Address: [address] [place] [address] Performed By: #### 2 432-2, , 2776-05 ####[facility]ITALCL[facility] [id number] [address] STATES OF [facility] ESTIMATED GLOMERULAR FILTRATION RATE 97 mL/min/1.73m??? Normal >=60 [facility] Comment on above: Order Comment: Speci men Type: BLOOD SPECIMENOrdering Facility: [facility] Address: [address] [place] [address] Result Comment: Luzmaria mated Glomerular Filtration Rate [...] 4321-2, , 2776-05 ####[facility] [place] LABORATORYCLIA [id number] [address] [id number] [place] Glucose [Mass/Vol] 123 mg/dL High 74-99 [facility] Comment on above: Order Comment: Speci men Type: BLOOD SPECIMENOrdering Facility: [facility] Address: [address] [place], [place] [id number] Result Comment: The [place] [employer] (ADA) provides guidance for cutoff [...] Standards of Medical Care in Diabetes 2016, [place] [employer]. Diabetes Care. 2016.39(Suppl 1). Performed By: #### 2 4321-2, , 2776-05 ####[facility] [place]ORATORYCLIA [id number] [place] [address] [place] Potassium [Moles/Vol] 4.4 mmol/L Normal 3.7-5.1 [facility] Comment on above: Order Comment: Shira feldman Type: BLOOD SPECIMENOrdering Facility: [facility] Address: [address] [place], [place] [address] Performed By: #### 2 4321-2, , 2776-05 ####[facility] [place] [facility]ORATORYCLIA [id number] [place] [address] [place] Sodium [Moles/Vol] 146 mmol/L High 136-144 [facility] Comment on above: Order Comment: Johni francia Type: BLOOD SPECIMENOrdering Facility: [facility] Address: [address] [place], [place] [address] Performed By: #### 2 4321-2, , 2776-05 ####[facility] [place]ORATORYCLIA [id number] [place] [address] [place] Urea nitrogen [Mass/Vol] 38 mg/dL High 9-24 [facility] Comment on above: Order Comment: Speci men Type: BLOOD SPECIMENOrdering Facility: [facility] Address: [address] [place] [address] Performed By: #### 2 4321-2, 50533-1, 2777-1 ####[facility] [place] [facility]ORATORYCLIA [id number] [address] [place] CASE MANAGEMon 07-20-2021 CASE MANAGEM Normal [facility] CBC W Auto Differential pane l (Bld)on 07-20-2021 Basophils (Bld) [#/Vol] 0.05 10*3/uL Normal <0.11 [facility] Comment on above: Order Comment: Speci men Type: BLOOD SPECIMENOrdering Facility: [facility] Address: [address] [place] [address] Performed By: #### 5 7021-8 ####[facility] [place] [facility]ORATORYCLIA [id number] [address] [place] Basophils/100 WBC (Bld) 0.5 % Normal [facility] Comment on above: Order Comment: Speci men Type: BLOOD SPECIMENOrdering Facility: [facility] Address: [address] [place] [address] Performed By: #### 5 7021-8 ####[facility] [place] [facility]ORATORYCLIA [id number] [address] [place] Differential cell count method Nom (Bld) Auto Normal [facility] Comment on above: Order Comment: Speci men Type: BLOOD SPECIMENOrdering Facility: [facility] Address: [address] [place] [address] Performed By: #### 5 7021-8 ####[facility] [place] [facility]ORATORYCLIA [id number] [place] [address] [place] Eosinophils (Bld) [#/Vol] 0.43 10*3/uL Normal <0.46 [facility] Comment on above: Order Comment: Speci men Type: BLOOD SPECIMENOrdering Facility: [facility] Address: [address] [place] [address] Performed By: #### 5 7021-8 ####[facility]ORATORYCLIA [id number] [address] STATES [facility] Eosinophils/100 WBC (Bld) 4.1 % Normal [facility] Comment on above: Order Comment: Speci men Type: BLOOD SPECIMENOrdering Facility: [facility] Address: [address] [place] [address] Performed By: #### 5 7021-8 ####[facility] [place] [facility]ORATORYCLIA [id number] [address] Erythrocyte distribution width (RBC) [Ratio] 16.7 % High 11.5-15.0 [facility] Comment on above: Order Comment: Speci men Type: BLOOD SPECIMENOrdering Facility: [facility] Address: [address] [place] [address] Performed By: #### 5 7021-8 ####[facility] [place] [facility]ORATORYCLIA [id number] [address] Hematocrit (Bld) [Volume fraction] 33.0 % Low 39.0-51.0 [facility] Comment on above: Order Comment: Speci men Type: BLOOD SPECIMENOrdering Facility: [facility] Address: [address] [place] [address] Performed By: #### 5 7021-8 ####[facility] [place] [facility]ORATORYCLIA [id number] [address] [place] Hemoglobin (Bld) [Mass/Vol] 9.7 g/dL Low 13.0-17.0 [facility] Comment on above: Order Comment: Speci men Type: BLOOD SPECIMENOrdering Facility: [facility] Address: [address] [place] [address] Performed By: #### 5 7021-8 ####[facility]ATORYCLIA [id number] [address] IMMATURE GRAN % 0.4 % Normal [facility] Comment on above: Order Comment: Speci men Type: BLOOD SPECIMENOrdering Facility: [facility] Address: [address] [place] [address] Performed By: #### 5 7021-8 ####[facility] [place] [facility]ORATORYCLIA [id number] [address] IMMATURE GRAN ABS 0.04 k/uL Normal <0.10 [facility] Comment on above: Order Comment: Speci men Type: BLOOD SPECIMENOrdering Facility: [facility] Address: [address] [place] [address] Performed By: #### 5 7021-8 ####[facility] [place] [facility]ORATORYCLIA [id number] [address] Lymphocytes (Bld) [#/Vol] 1.99 10*3/uL Normal 1.00-4.00 [facility] Comment on above: Order Comment: Speci men Type: BLOOD SPECIMENOrdering Facility: [facility] Address: [address] [place] [address] Performed By: #### 5 7021-8 ####[facility] [place] [facility]ORATORYCLIA [id number] [address] Lymphocytes/100 WBC (Bld) 18.8 % Normal [facility] Comment on above: Order Comment: Speci men Type: BLOOD SPECIMENOrdering Facility: [facility] Address: [address] [place] [address] Performed By: #### 5 7021-8 ####[facility] [place] [facility]ORATORYCLIA [id number] [address] MCH (RBC) [Entitic mass] 27.8 pg Normal 26.0-34.0 [facility] Comment on above: Order Comment: Speci men Type: BLOOD SPECIMENOrdering Facility: [facility] Address: [address] [place] [address] Performed By: #### 5 7021-8 ####[facility] [place] [facility]ORATORYCLIA [id number] [address] MCHC (RBC) [Mass/Vol] 29.4 g/dL Low 30.5-36.0 [facility] Comment on above: Order Comment: Speci men Type: BLOOD SPECIMENOrdering Facility: [facility] Address: [address] [place] [address] Performed By: #### 5 7021-8 ####[facility] [place] [facility]ORATORYCLIA [id number] [address] [place] MCV (RBC) [Entitic vol] 94.6 fL Normal 80.0-100.0 [facility] Comment on above: Order Comment: Speci men Type: BLOOD SPECIMENOrdering Facility: [facility] Address: [address] [place] [address] Performed By: #### 5 7021-8 ####[facility] [place] [facility]ORATORYCLIA [id number] [address] [place] Monocytes (Bld) [#/Vol] 0.82 10*3/uL Normal <0.87 [facility] Comment on above: Order Comment: Speci men Type: BLOOD SPECIMENOrdering Facility: [facility] Address: [address] [place] [address] Performed By: #### 5 7021-8 ####[facility] [place] [facility]ORATORYCLIA [id number] [address] Monocytes/100 WBC (Bld) 7.8 % Normal [facility] Comment on above: Order Comment: Speci men Type: BLOOD SPECIMENOrdering Facility: [facility] Address: [address] [place] [address] Performed By: #### 5 7021-8 ####[facility] [place] [facility]ORATORYCLIA [id number] [address] [place] Neutrophils (Bld) [#/Vol] 7.23 10*3/uL Normal 1.45-7.50 [facility] Comment on above: Order Comment: Speci men Type: BLOOD SPECIMENOrdering Facility: [facility] Address: [address] [place] [address] Performed By: #### 5 7021-8 ####[facility] [place] [facility]ORATORYCLIA [id number] [address] [place] Neutrophils/100 WBC (Bld) 68.4 % Normal [facility] Comment on above: Order Comment: Speci men Type: BLOOD SPECIMENOrdering Facility: [facility] Address: [address] [place] [address] Performed By: #### 5 7021-8 ####[facility] [place] [facility]ORATORYCLIA [id number] [address] [place] Nucleated RBC (Bld) [#/Vol] 10*3/uL Normal <0.01 [facility] Comment on above: Order Comment: Speci men Type: BLOOD SPECIMENOrdering Facility: [facility] Address: [address] [place] [address] Performed By: #### 5 7021-8 ####[facility] [place] [facility]ORATORYCLIA [id number] [address] Nucleated RBC/100 WBC (Bld) [Ratio] 0.0 /100 WBC Normal [facility] Comment on above: Order Comment: Speci men Type: BLOOD SPECIMENOrdering Facility: [facility] Address: [address] [place] [address] Performed By: #### 5 7021-8 ####[facility] [place] [facility]ORATORYCLIA [id number] [address] [place] Platelet mean volume (Bld) [Entitic vol] 10.5 fL Normal 9.0-12.7 [facility] Comment on above: Order Comment: Speci men Type: BLOOD SPECIMENOrdering Facility: [facility] Address: [address] [place] [address] Performed By: #### 5 7021-8 ####[facility] [place] [facility]ORATORYCLIA [id number] [address] [place] Platelets (Bld) [#/Vol] 400 10*3/uL Normal 150-400 [facility] Comment on above: Order Comment: Speci men Type: BLOOD SPECIMENOrdering Facility: [facility] Address: [address] [place] [address] Performed By: #### 5 7021-8 ####[facility] [place] [facility]ORATORYCLIA [id number] [address] OF [facility] RBC (Bld) [#/Vol] 3.49 10*6/uL Low 4.20-6.00 [facility] Comment on above: Order Comment: Speci men Type: BLOOD SPECIMENOrdering Facility: [facility] Address: [address] [place] [address] Performed By: #### 5 7021-8 ####[facility] [place] [facility]ATORYCLIA [id number] [address] WBC (Bld) [#/Vol] 10.56 10*3/uL Normal 3.70-11.00 [facility] Comment on above: Order Comment: Speci men Type: BLOOD SPECIMENOrdering Facility: [facility] Address: [address] [place] [address] Performed By: #### 5 7021-8 ####[facility] [place]ATORYCLIA [id number] [address] CONSULT PROGon 07-20-2021 CONSULT PROG Normal [facility] CT BRAIN WO IVCONon 07-21-[address] BRAIN WO IVCON Normal [facility] Magnesium SerPl-ncon 07-20 Magnesium [Mass/Vol] 2.4 mg/dL High 1.7-2.3 [facility] Comment on above: Order Comment: Speci men Type: BLOOD SPECIMENOrdering Facility: [facility] Address: [address] [place] [address] Performed By: #### 2 4321-2, 17801-4, 2777-1 ####[facility]ATORYCLIA [id number] [address] [place] NUTRITIONon 07-20-2021 NUTRITION Normal [facility] Phosphate SerPl-mCncon 07-20 Phosphate [Mass/Vol] 4.1 mg/dL Normal 2.7-4.8 [facility] Comment on above: Order Comment: Speci men Type: BLOOD SPECIMENOrdering Facility: [facility] Address: [address] [place] [address] Performed By: #### 2 4321-2, 25338-0, 2777-1 ####[facility]ATORYCLIA [id number] [place] [address] [place] aPTT PPPon 07-20-2021 aPTT Coag (PPP) [Time] 53.6 s High 23.0-32.4 [facility] Comment on above: Order Comment: Speci men Type: BLOOD SPECIMENOrdering Facility: [facility] Address: [address] [place] [address] Performed By: #### 1 4979-9 ####[facility]ORATORYCLIA [id number] [place] [address] [place] Bacteria CSF Culton 07-20-19 22 Bacteria identified Cx Nom (CSF) CULTURE, CSF: No growth 14 days GRAM STAIN: No organisms seen No Polymorphonuclear Leukocytes Rare Mononuclear cells Gram stain performed on cytospun specimen. Normal [facility] Comment on above: Performed By: #### 6 06-4 ####[facility]ATORYCLIA [id number] [place] [address] [place] CONSULT PROGon 07-19-2021 CONSULT PROG Normal [facility] CSF MANUAL DIFFon 07-19-2021 DIF TTL, CSF 100 cells counted Normal [facility] Comment on above: Order Comment: Speci men Type: CEREBROSPINAL FLUIDOrdering Facility: [facility] Address: [address] [place] [address] Performed By: #### L [id number], 95645-9, [id number] ####[facility]ATORYCLIA [id number] [place] [address] [place] EOSIN%, CSF 1 % Normal [facility] Comment on above: Order Comment: Speci men Type: CEREBROSPINAL FLUIDOrdering Facility: [facility] Address: [address] [place] [address] Performed By: #### L [id number], 13374-9, [id number] ####[facility]ATORYCLIA [id number] [place] [address] [place] LYMPH%, CSF 67 % Normal 50-90 [facility] Comment on above: Order Comment: Speci men Type: CEREBROSPINAL FLUIDOrdering Facility: [facility] Address: [address] [place] [address] Performed By: #### L [id number], 73763-6, [id number] ####[facility]ATORYCLIA [id number] [place] [address] [place] MACRO%, CSF 1 % High <1 [facility] Comment on above: Order Comment: Speci men Type: CEREBROSPINAL FLUIDOrdering Facility: [facility] Address: [address] [place] [address] Performed By: #### L [id number], 19443-1, [id number] ####[facility]ATORYCLIA [id number] [place] [address] [place] MONO%, CSF 18 % Normal 10-50 [facility] Comment on above: Order Comment: Speci men Type: CEREBROSPINAL FLUIDOrdering Facility: [facility] Address: [address] [place] [address] Performed By: #### L [id number], 81160-4, [id number] ####[facility]ATORYCLIA [id number] [place] [address] [place] NEUT%, CSF 11 % High 0-3 [facility] Comment on above: Order Comment: Speci men Type: CEREBROSPINAL FLUIDOrdering Facility: [facility] Address: [address] [place] [address] Performed By: #### L [id number], 49738-8, [id number] ####[facility]ATORYCLIA [id number] [address] [place] OTHER CL%, CSF 2 % Normal [facility] Comment on above: Order Comment: Speci men Type: CEREBROSPINAL FLUIDOrdering Facility: [facility] Address: [address] [place] [address] Result Comment: Path review to follow. Performed By: #### L [id number], 00488-7, [id number] ####[facility] LABORATORYCLIA [id number] [address] CSF PATHOLOGIST INTERP (LAB REFLEX ORDER-NO BILL)on 07-19-2021 CSF STAFF REVIEW Normal [facility] Comment on above: Order Comment: Speci men Type: CEREBROSPINAL FLUIDOrdering Facility: [facility] Address: [address] [place] [address] Performed By: #### L [id number], 85496-6, [id number] ####[facility]ATORYCLIA [id number] [address] Pathologist name Reviewed by Wing Cummings MD [facility] Comment on above: Order Comment: Speci men Type: CEREBROSPINAL FLUIDOrdering Facility: [facility] Address: [address] [place] [address] Performed By: #### L [id number], 20379-1, [id number] ####[facility] LABORATORYCLIA [id number] [address] Cell count panel (CSF)on Clarity (CSF) Clear Normal Clear [facility] Comment on above: Order Comment: Speci men Type: CEREBROSPINAL FLUIDOrdering Facility: [facility] Address: [address] [place] [address] Performed By: #### L [id number], [id number], [id number] ####[facility] LABORATORYCLIA [id number] Clarity (Unsp spec) Not Indicated Normal Clear [facility] Comment on above: Order Comment: Speci men Type: CEREBROSPINAL FLUIDOrdering Facility: [facility] Address: [address] [place] [address] Performed By: #### L [id number], 24210-6, [id number] ####[facility] LABORATORYCLIA [id number] [address] Color (CSF) Colorless Normal Colorless [facility] Comment on above: Order Comment: Speci men Type: CEREBROSPINAL FLUIDOrdering Facility: [facility] Address: [address] [address] Performed By: #### L [id number], 82818-2, [id number] ####[facility]ATORYCLIA [id number] [address] Color (Spun CSF) Not Indicated Normal Colorless [facility] Comment on above: Order Comment: Speci men Type: CEREBROSPINAL FLUIDOrdering Facility: [facility] Address: [address] [place] [address] Performed By: #### L [id number], 36290-5, [id number] ####[facility]ORATORYCLIA [id number] [address] CSF TUBE NUMBER [employer] Normal [facility] Comment on above: Order Comment: Speci men Type: CEREBROSPINAL FLUIDOrdering Facility: [facility] Address: [address] [address] Performed By: #### L [id number], 51968-1, [id number] ####[facility]ATORYCLIA [id number] [address] [place] RBC Manual cnt (CSF) [#/Vol] 0 cells/uL Normal 0-5 [facility] Comment on above: Order Comment: Speci men Type: CEREBROSPINAL FLUIDOrdering Facility: [facility] Address: [address] [address] Performed By: #### L [id number], 82764-3, [id number] ####[facility]ATORYCLIA [id number] [address] WBC Manual cnt (CSF) [#/Vol] 2 cells/uL Normal 0-5 [facility] Comment on above: Order Comment: Speci men Type: CEREBROSPINAL FLUIDOrdering Facility: [facility] Address: [address] [place] [address] Performed By: #### L [id number], 68574-1, [id number] ####[facility]ORATORYCLIA [id number] [address] [place] Glucose CSF-mCncon Glucose (CSF) [Mass/Vol] 69 mg/dL Normal 40-70 [facility] Comment on above: Order Comment: Speci men Type: CEREBROSPINAL FLUIDOrdering Facility: [facility] Address: [address] [place] [address] Result Comment: Lumb ar CSF glucose values of healthy patients are approximately 60% of the plasma values and must always be compared with a concurrently measured plasma value for adequate clinical interpretation.References: 1. Glucose HK (GLUC3) [package insert V 12.0 [place]]. [employer], [place], [place]. September 2015. 2. Michelle Moore, Loki HGarfield (2015). Chapter 7: Glucose and Lactate. Marianlea Alcocer al.(eds.), Cerebrospinal Fluid in Clinical Neurology. [place]: Outcome [employer]. Performed By: #### 2 342-4, 2880-3 ####[facility]ORATORYCLIA [id number] [address] [place] NURSING PROGon 07-19-2021 NURSING PROG Normal [facility] NURSING PROG Normal [facility] Prot CSF-mCncon 07-19-2021 Protein (CSF) [Mass/Vol] 51 mg/dL High 15-45 [facility] Comment on above: Order Comment: Speci men Type: CEREBROSPINAL FLUIDOrdering Facility: [facility] Address: [address] [place] [address] Performed By: #### 2 342-4, 2880-3 ####[facility]ORATORYCLIA [id number] [address] [place] THERAPY NTon 07-19-2021 THERAPY NT Normal [facility] Urinalysis complete panel (U )on 07-19-2021 Bilirubin Ql (U) Negative Normal Negative [facility] Comment on above: Order Comment: Speci men Type: URINE SPECIMENOrdering Facility: [facility] Address: [address] [place] [address] Performed By: #### 2 4356-8 ####[facility]ORATORYCLIA [id number] [address] Clarity (Unsp spec) Clear Normal Clear [facility] Comment on above: Order Comment: Speci men Type: URINE SPECIMENOrdering Facility: [facility] Address: [address] [place] [address] Performed By: #### 2 4356-8 ####[facility]ORATORYCLIA [id number] [address] Color (U) Colorless Normal yellow [facility] Comment on above: Order Comment: Speci men Type: URINE SPECIMENOrdering Facility: [facility] Address: [address] [place] [address] Performed By: #### 2 4356-8 ####[facility]ORATORYCLIA [id number] [address] Glucose Test strip (U) [Mass/Vol] Negative Normal Negative [facility] Comment on above: Order Comment: Speci men Type: URINE SPECIMENOrdering Facility: [facility] Address: [address] [place] [address] Performed By: #### 2 4356-8 ####[facility]ORATORYCLIA [id number] [address] Hemoglobin Ql (U) Trace Abnormal Negative [facility] Comment on above: Order Comment: Speci men Type: URINE SPECIMENOrdering Facility: [facility] Address: [address] [place] [address] Performed By: #### 2 4356-8 ####[facility]ORATORYCLIA [id number] [address] Hyaline casts (Urine sed) [#/Area] 1-3 /LPF Abnormal 0 /LPF [facility] Comment on above: Order Comment: Speci men Type: URINE SPECIMENOrdering Facility: [facility] Address: [address] [place] [address] Performed By: #### 2 4356-8 ####[facility] LABORATORYCLIA [id number] [address] Ketones Ql (U) Negative Normal Negative [facility] Comment on above: Order Comment: Speci men Type: URINE SPECIMENOrdering Facility: [facility] Address: [address] [place] [address] Performed By: #### 2 4356-8 ####[facility] LABORATORYCLIA [id number] [address] Leukocyte esterase Test strip Ql (U) Negative Normal Negative [facility] Comment on above: Order Comment: Speci men Type: URINE SPECIMENOrdering Facility: [facility] Address: [address] [place] [address] Performed By: #### 2 4356-8 ####[facility]ORATORYCLIA [id number] [address] [place] Nitrite Ql (U) Negative Normal Negative [facility] Comment on above: Order Comment: Speci men Type: URINE SPECIMENOrdering Facility: [facility] Address: [address] [place] [address] Performed By: #### 2 4356-8 ####[facility]ORATORYCLIA [id number] [address] [place] pH (U) 7.0 [pH] Normal 5.0-8.0 [facility] Comment on above: Order Comment: Speci men Type: URINE SPECIMENOrdering Facility: [facility] Address: [address] [place] [address] Performed By: #### 2 4356-8 ####[facility]ORATORYCLIA [id number] [address] [place] Protein (U) [Mass/Vol] Negative Normal Negative [facility] Comment on above: Order Comment: Speci men Type: URINE SPECIMENOrdering Facility: [facility] Address: [address] [place] [address] Performed By: #### 2 4356-8 ####[facility]ORATORYCLIA [id number] [address] RBC LM.HPF (Urine sed) [#/Area] 6-10 /HPF Abnormal 0-3 /HPF [facility] Comment on above: Order Comment: Speci men Type: URINE SPECIMENOrdering Facility: [facility] Address: [address] [place] [address] Performed By: #### 2 4356-8 ####[facility]ORATORYCLIA [id number] [address] Specific gravity (U) [Rel density] 1.008 Normal 1.005-1.030 [facility] Comment on above: Order Comment: Speci men Type: URINE SPECIMENOrdering Facility: [facility] Address: [address] [place] [address] Performed By: #### 2 4356-8 ####[facility]ORATORYCLIA [id number] [address] Urobilinogen Ql (U) Normal Normal Negative [facility] Comment on above: Order Comment: Speci men Type: URINE SPECIMENOrdering Facility: [facility] Address: [address] [place] [address] Performed By: #### 2 4356-8 ####[facility]ORATORYCLIA [id number] [address] WBC LM.HPF (Urine sed) [#/Area] 0-5 /HPF Normal 0-5 /HPF [facility] Comment on above: Order Comment: Speci men Type: URINE SPECIMENOrdering Facility: [facility] Address: [address] [place] [address] Performed By: #### 2 4356-8 ####[facility]ORATORYCLIA [id number] [address] Vancomycin random [Mass/Vol] on 07-19-2021 Vancomycin [Mass/Vol] 13.9 ug/mL Normal 10.0-20.0 [facility] Comment on above: Order Comment: Speci men Type: BLOOD SPECIMENOrdering Facility: [facility] Address: [address] [place] [address] Result Comment: Refe rence ranges and high/low indicator flags are provided as general guidelines only. The treating physician must determine appropriate target levels/dosing based on the specific clinical situation. Performed By: #### 4 091-5 ####[facility]ORATORYCLIA [id number] [place] [address] [place] aPTT PPPon 07-19-2021 aPTT Coag (PPP) [Time] 53.9 s High 23.0-32.4 [facility] Comment on above: Order Comment: Speci men Type: BLOOD SPECIMENOrdering Facility: [facility] Address: [address] [place] [address] Performed By: #### 1 4979-9 ####[facility] LABORATORYCLIA [id number] [place] [address] [place] Basic metabolic 2000 panelon 07-18-2021 Anion gap [Moles/Vol] 6 mmol/L Low 9-18 [facility] Comment on above: Order Comment: Speci men Type: BLOOD SPECIMENOrdering Facility: [facility] Address: [address] [place] [address] Performed By: #### 2 4321-2, , 2776-05 ####[facility]ORATORYCLIA [id number] [place] [address] [place] Calcium [Mass/Vol] 9.4 mg/dL Normal 8.5-10.2 [facility] Comment on above: Order Comment: Speci men Type: BLOOD SPECIMENOrdering Facility: [facility] Address: [address] [place] [address] Performed By: #### 2 4321-2, 99775-7, 2777- ####[facility]ORATORYCLIA [id number] [address] STATES OF [facility] Chloride [Moles/Vol] 103 mmol/L Normal 97-105 [facility] Comment on above: Order Comment: Speci men Type: BLOOD SPECIMENOrdering Facility: [facility] Address: [address] [place] [address] Performed By: #### 2 4321-2, 26329-2, 2776-05 ####[facility]ORATORYCLIA [id number] [address] OF [facility] CO2 [Moles/Vol] 34 mmol/L High 22-30 [facility] Comment on above: Order Comment: Speci men Type: BLOOD SPECIMENOrdering Facility: [facility] Address: [address] [place] [address] Performed By: #### 2 4321-2, , 2776-05 ####[facility]ORATORYCLIA [id number] [address] Creatinine [Mass/Vol] 0.75 mg/dL Normal 0.73-1.22 [facility] Comment on above: Order Comment: Speci men Type: BLOOD SPECIMENOrdering Facility: [facility] Address: [address] [place] [address] Performed By: #### 2 4321-2, , 2776-05 ####[facility]ORATORYCLIA [id number] [address] ESTIMATED GLOMERULAR FILTRATION RATE 98 mL/min/1.73m??? Normal >=60 [facility] Comment on above: Order Comment: Speci men Type: BLOOD SPECIMENOrdering Facility: [facility] Address: [address] [place] [address] Result Comment: Luzmaria mated Glomerular Filtration Rate [...] 4321-2, , 2776-05 ####[facility]ORATORYCLIA [id number] [place] [address] [place] Glucose [Mass/Vol] 125 mg/dL High 74-99 [facility] Comment on above: Order Comment: Speci men Type: BLOOD SPECIMENOrdering Facility: [facility] Address: [address] [id number] Result Comment: The [place] [employer] (ADA) provides guidance for cutoff [...] Standards of Medical Care in Diabetes 2016, [place] [employer]. Diabetes Care. 2016.39(Suppl 1). Performed By: #### 2 4321-2, , 2776-05 ####[facility] HOSPITALIA [id number] [place] [address] [place] Potassium [Moles/Vol] 4.4 mmol/L Normal 3.7-5.1 [facility] Comment on above: Order Comment: Speci men Type: BLOOD SPECIMENOrdering Facility: [facility] Address: [address] [phone] Performed By: #### 2 4321-2, , 2776-05 ####[facility] LABORATORYIA [id number] [place] [address] [place] Sodium [Moles/Vol] 143 mmol/L Normal 136-144 [facility] Comment on above: Order Comment: Johni men Type: BLOOD SPECIMENOrdering Facility: [facility] Address: [address] [phone] Performed By: #### 2 4321-2, 39522-3, 2777-1 ####[facility]ORATORYCLIA [id number] [address] [place] Urea nitrogen [Mass/Vol] 33 mg/dL High 9-24 [facility] Comment on above: Order Comment: Speci men Type: BLOOD SPECIMENOrdering Facility: [facility] Address: [address] [place] [address] Performed By: #### 2 4321-2, , 277- ####[facility]ORATORYCLIA [id number] [address] [place] CASE MANAGEMon 07-18-2021 CASE MANAGEM Normal [facility] CBC W Auto Differential pane l (Bld)on 07-18-2021 Basophils (Bld) [#/Vol] 0.05 10*3/uL Normal <0.11 [facility] Comment on above: Order Comment: Speci men Type: BLOOD SPECIMENOrdering Facility: [facility] Address: [address] [place] [address] Performed By: #### 5 7021-8 ####[facility]ORATORYCLIA [id number] [address] [place] Basophils/100 WBC (Bld) 0.5 % Normal [facility] Comment on above: Order Comment: Speci men Type: BLOOD SPECIMENOrdering Facility: [facility] Address: [address] [place] [address] Performed By: #### 5 7021-8 ####[facility]ORATORYCLIA [id number] [address] [place] Differential cell count method Nom (Bld) Auto Normal [facility] Comment on above: Order Comment: Speci men Type: BLOOD SPECIMENOrdering Facility: [facility] Address: [address] [place] [address] Performed By: #### 5 7021-8 ####[facility]ORATORYCLIA [id number] [address] [place] Eosinophils (Bld) [#/Vol] 0.44 10*3/uL Normal <0.46 [facility] Comment on above: Order Comment: Speci men Type: BLOOD SPECIMENOrdering Facility: [facility] Address: [address] [place] [address] Performed By: #### 5 7021-8 ####[facility]ORATORYCLIA [id number] [address] [place] Eosinophils/100 WBC (Bld) 4.3 % Normal [facility] Comment on above: Order Comment: Speci men Type: BLOOD SPECIMENOrdering Facility: [facility] Address: [address] [place] [address] Performed By: #### 5 7021-8 ####[facility]ORATORYCLIA [id number] [address] STATES [facility] Erythrocyte distribution width (RBC) [Ratio] 16.6 % High 11.5-15.0 [facility] Comment on above: Order Comment: Speci men Type: BLOOD SPECIMENOrdering Facility: [facility] Address: [address] [place] [address] Performed By: #### 5 7021-8 ####[facility]ORATORYCLIA [id number] [address] [place] Hematocrit (Bld) [Volume fraction] 32.2 % Low 39.0-51.0 [facility] Comment on above: Order Comment: Speci men Type: BLOOD SPECIMENOrdering Facility: [facility] Address: [address] [place] [address] Performed By: #### 5 7021-8 ####[facility]ORATORYCLIA [id number] [address] [place] Hemoglobin (Bld) [Mass/Vol] 9.5 g/dL Low 13.0-17.0 [facility] Comment on above: Order Comment: Speci men Type: BLOOD SPECIMENOrdering Facility: [facility] Address: [address] [place] [address] Performed By: #### 5 7021-8 ####[facility]ORATORYCLIA [id number] [address] IMMATURE GRAN % 0.4 % Normal [facility] Comment on above: Order Comment: Speci men Type: BLOOD SPECIMENOrdering Facility: [facility] Address: [address] [place] [address] Performed By: #### 5 7021-8 ####[facility]ORATORYCLIA [id number] [address] IMMATURE GRAN ABS 0.04 k/uL Normal <0.10 [facility] Comment on above: Order Comment: Speci men Type: BLOOD SPECIMENOrdering Facility: [facility] Address: [address] [place] [address] Performed By: #### 5 7021-8 ####[facility]ORATORYCLIA [id number] [address] STATES OF [facility] Lymphocytes (Bld) [#/Vol] 1.71 10*3/uL Normal 1.00-4.00 [facility] Comment on above: Order Comment: Speci men Type: BLOOD SPECIMENOrdering Facility: [facility] Address: [address] [place] [address] Performed By: #### 5 7021-8 ####[facility]ORATORYCLIA [id number] [address] Lymphocytes/100 WBC (Bld) 16.9 % Normal [facility] Comment on above: Order Comment: Speci men Type: BLOOD SPECIMENOrdering Facility: [facility] Address: [address] [place] [address] Performed By: #### 5 7021-8 ####[facility]ORATORYCLIA [id number] [address] MCH (RBC) [Entitic mass] 27.9 pg Normal 26.0-34.0 [facility] Comment on above: Order Comment: Speci men Type: BLOOD SPECIMENOrdering Facility: [facility] Address: [address] [place] [address] Performed By: #### 5 7021-8 ####[facility]ORATORYCLIA [id number] [address] MCHC (RBC) [Mass/Vol] 29.5 g/dL Low 30.5-36.0 [facility] Comment on above: Order Comment: Speci men Type: BLOOD SPECIMENOrdering Facility: [facility] Address: [address] [place] [address] Performed By: #### 5 7021-8 ####[facility]ATORYCLIA [id number] [address] MCV (RBC) [Entitic vol] 94.7 fL Normal 80.0-100.0 [facility] Comment on above: Order Comment: Speci men Type: BLOOD SPECIMENOrdering Facility: [facility] Address: [address] [place] [address] Performed By: #### 5 7021-8 ####[facility]ORATORYCLIA [id number] [address] Monocytes (Bld) [#/Vol] 0.69 10*3/uL Normal <0.87 [facility] Comment on above: Order Comment: Speci men Type: BLOOD SPECIMENOrdering Facility: [facility] Address: [address] [place] [address] Performed By: #### 5 7021-8 ####[facility]ORATORYCLIA [id number] [address] Monocytes/100 WBC (Bld) 6.8 % Normal [facility] Comment on above: Order Comment: Speci men Type: BLOOD SPECIMENOrdering Facility: [facility] Address: [address] [place] [address] Performed By: #### 5 7021-8 ####[facility]ATORYCLIA [id number] [address] [place] Neutrophils (Bld) [#/Vol] 7.19 10*3/uL Normal 1.45-7.50 [facility] Comment on above: Order Comment: Speci men Type: BLOOD SPECIMENOrdering Facility: [facility] Address: [address] [place] [address] Performed By: #### 5 7021-8 ####[facility]ATORYCLIA [id number] [address] Neutrophils/100 WBC (Bld) 71.1 % Normal [facility] Comment on above: Order Comment: Speci men Type: BLOOD SPECIMENOrdering Facility: [facility] Address: [address] [place] [address] Performed By: #### 5 7021-8 ####[facility]ATORYCLIA [id number] [address] [place] Nucleated RBC (Bld) [#/Vol] 10*3/uL Normal <0.01 [facility] Comment on above: Order Comment: Speci men Type: BLOOD SPECIMENOrdering Facility: [facility] Address: [address] [place] [address] Performed By: #### 5 7021-8 ####[facility]ATORYCLIA [id number] [address] Nucleated RBC/100 WBC (Bld) [Ratio] 0.0 /100 WBC Normal [facility] Comment on above: Order Comment: Speci men Type: BLOOD SPECIMENOrdering Facility: [facility] Address: [address] [place] [address] Performed By: #### 5 7021-8 ####[facility]ATORYCLIA [id number] [address] Platelet mean volume (Bld) [Entitic vol] 10.3 fL Normal 9.0-12.7 [facility] Comment on above: Order Comment: Speci men Type: BLOOD SPECIMENOrdering Facility: [facility] Address: [address] [place] [address] Performed By: #### 5 7021-8 ####[facility]ATORYCLIA [id number] [address] [place] Platelets (Bld) [#/Vol] 403 10*3/uL High 150-400 [facility] Comment on above: Order Comment: Speci men Type: BLOOD SPECIMENOrdering Facility: [facility] Address: [address] [place] [address] Performed By: #### 5 7021-8 ####[facility]ATORYCLIA [id number] [address] STATES OF [facility] RBC (Bld) [#/Vol] 3.40 10*6/uL Low 4.20-6.00 [facility] Comment on above: Order Comment: Speci men Type: BLOOD SPECIMENOrdering Facility: [facility] Address: [address] [place] [address] Performed By: #### 5 7021-8 ####[facility]ATORYCLIA [id number] [address] WBC (Bld) [#/Vol] 10.12 10*3/uL Normal 3.70-11.00 [facility] Comment on above: Order Comment: Speci men Type: BLOOD SPECIMENOrdering Facility: [facility] Address: [address] [place] [address] Performed By: #### 5 7021-8 ####[facility]ATORYCLIA [id number] [address] [place] Magnesium SerPl-mCncon 07-18 Magnesium [Mass/Vol] 2.4 mg/dL High 1.7-2.3 [facility] Comment on above: Order Comment: Speci men Type: BLOOD SPECIMENOrdering Facility: [facility] Address: [address] [place] [address] Performed By: #### 2 4321-2, 34214-3, 2777-1 ####[facility]ATORYCLIA [id number] [address] NURSING PROGon 07-18-2021 NURSING PROG Normal [facility] NURSING PROG Normal [facility] Phosphate SerPl-mCncon 07-18 Phosphate [Mass/Vol] 3.9 mg/dL Normal 2.7-4.8 [facility] Comment on above: Order Comment: Speci men Type: BLOOD SPECIMENOrdering Facility: [facility] Address: [address] [place] [address] Performed By: #### 2 4321-2, 74704-0, 2777-1 ####[facility]ATORYCLIA [id number] [address] THERAPY NTon 07-18-2021 THERAPY NT Normal [facility] aPTT PPPon 07-18-2021 aPTT Coag (PPP) [Time] 52.3 s High 23.0-32.4 [facility] Comment on above: Order Comment: Speci men Type: BLOOD SPECIMENOrdering Facility: [facility] Address: [address] [place] [address] Performed By: #### 1 4979-9 ####[facility]ATORYCLIA [id number] [address] CBC W Auto Differential pane l (Bld)on 07-17-2021 Basophils (Bld) [#/Vol] 0.05 10*3/uL Normal <0.11 [facility] Comment on above: Order Comment: Speci men Type: BLOOD SPECIMENOrdering Facility: [facility] Address: [address] [place] [address] Performed By: #### 5 7021-8 ####[facility]ORATORYCLIA [id number] [address] Basophils/100 WBC (Bld) 0.5 % Normal [facility] Comment on above: Order Comment: Speci men Type: BLOOD SPECIMENOrdering Facility: [facility] Address: [address] [place] [address] Performed By: #### 5 7021-8 ####[facility] LABORATORYCLIA [id number] [address] Differential cell count method Nom (Bld) Auto Normal [facility] Comment on above: Order Comment: Speci men Type: BLOOD SPECIMENOrdering Facility: [facility] Address: [address] [place] [address] Performed By: #### 5 7021-8 ####[facility] LABORATORYCLIA [id number] [address] [place] Eosinophils (Bld) [#/Vol] 0.32 10*3/uL Normal <0.46 [facility] Comment on above: Order Comment: Speci men Type: BLOOD SPECIMENOrdering Facility: [facility] Address: [address] [place] [address] Performed By: #### 5 7021-8 ####[facility] LABORATORYCLIA [id number] [address] Eosinophils/100 WBC (Bld) 3.4 % Normal [facility] Comment on above: Order Comment: Speci men Type: BLOOD SPECIMENOrdering Facility: [facility] Address: [address] [place] [address] Performed By: #### 5 7021-8 ####[facility] LABORATORYCLIA [id number] [address] Erythrocyte distribution width (RBC) [Ratio] 16.6 % High 11.5-15.0 [facility] Comment on above: Order Comment: Speci men Type: BLOOD SPECIMENOrdering Facility: [facility] Address: [address] [place] [address] Performed By: #### 5 7021-8 ####[facility] LABORATORYCLIA [id number] [address] Hematocrit (Bld) [Volume fraction] 30.7 % Low 39.0-51.0 [facility] Comment on above: Order Comment: Speci men Type: BLOOD SPECIMENOrdering Facility: [facility] Address: [address] [place] [address] Performed By: #### 5 7021-8 ####[facility] LABORATORYCLIA [id number] [address] [place] Hemoglobin (Bld) [Mass/Vol] 9.0 g/dL Low 13.0-17.0 [facility] Comment on above: Order Comment: Speci men Type: BLOOD SPECIMENOrdering Facility: [facility] Address: [address] [place] [address] Performed By: #### 5 7021-8 ####[facility] LABORATORYCLIA [id number] [address] IMMATURE GRAN % 0.6 % Normal [facility] Comment on above: Order Comment: Speci men Type: BLOOD SPECIMENOrdering Facility: [facility] Address: [address] [place] [address] Performed By: #### 5 7021-8 ####[facility] LABORATORYCLIA [id number] [address] IMMATURE GRAN ABS 0.06 k/uL Normal <0.10 [facility] Comment on above: Order Comment: Speci men Type: BLOOD SPECIMENOrdering Facility: [facility] Address: [address] [place] [address] Performed By: #### 5 7021-8 ####[facility] LABORATORYCLIA [id number] [address] [place] Lymphocytes (Bld) [#/Vol] 1.61 10*3/uL Normal 1.00-4.00 [facility] Comment on above: Order Comment: Speci men Type: BLOOD SPECIMENOrdering Facility: [facility] Address: [address] [place] [address] Performed By: #### 5 7021-8 ####[facility] LABORATORYCLIA [id number] [address] Lymphocytes/100 WBC (Bld) 17.3 % Normal [facility] Comment on above: Order Comment: Speci men Type: BLOOD SPECIMENOrdering Facility: [facility] Address: [address] [place] [address] Performed By: #### 5 7021-8 ####[facility] LABORATORYCLIA [id number] [address] MCH (RBC) [Entitic mass] 26.9 pg Normal 26.0-34.0 [facility] Comment on above: Order Comment: Speci men Type: BLOOD SPECIMENOrdering Facility: [facility] Address: [address] [place] [address] Performed By: #### 5 7021-8 ####[facility] LABORATORYCLIA [id number] [address] MCHC (RBC) [Mass/Vol] 29.3 g/dL Low 30.5-36.0 [facility] Comment on above: Order Comment: Speci men Type: BLOOD SPECIMENOrdering Facility: [facility] Address: [address] [place] [address] Performed By: #### 5 7021-8 ####[facility] LABORATORYCLIA [id number] [address] STATES [facility] MCV (RBC) [Entitic vol] 91.9 fL Normal 80.0-100.0 [facility] Comment on above: Order Comment: Speci men Type: BLOOD SPECIMENOrdering Facility: [facility] Address: [address] [place] [address] Performed By: #### 5 7021-8 ####[facility] LABORATORYCLIA [id number] [address] Monocytes (Bld) [#/Vol] 0.61 10*3/uL Normal <0.87 [facility] Comment on above: Order Comment: Speci men Type: BLOOD SPECIMENOrdering Facility: [facility] Address: [address] [place] [address] Performed By: #### 5 7021-8 ####[facility] LABORATORYCLIA [id number] [address] Monocytes/100 WBC (Bld) 6.6 % Normal [facility] Comment on above: Order Comment: Speci men Type: BLOOD SPECIMENOrdering Facility: [facility] Address: [address] [place] [address] Performed By: #### 5 7021-8 ####[facility]ORATORYCLIA [id number] [place] [address] [place] Neutrophils (Bld) [#/Vol] 6.64 10*3/uL Normal 1.45-7.50 [facility] Comment on above: Order Comment: Speci men Type: BLOOD SPECIMENOrdering Facility: [facility] Address: [address] [place] [address] Performed By: #### 5 7021-8 ####[facility]ORATORYCLIA [id number] [address] [place] Neutrophils/100 WBC (Bld) 71.6 % Normal [facility] Comment on above: Order Comment: Speci men Type: BLOOD SPECIMENOrdering Facility: [facility] Address: [address] [place] [address] Performed By: #### 5 7021-8 ####[facility]ORATORYCLIA [id number] [address] [place] Nucleated RBC (Bld) [#/Vol] 10*3/uL Normal <0.01 [facility] Comment on above: Order Comment: Speci men Type: BLOOD SPECIMENOrdering Facility: [facility] Address: [address] [place] [address] Performed By: #### 5 7021-8 ####[facility]ORATORYCLIA [id number] [address] [place] Nucleated RBC/100 WBC (Bld) [Ratio] 0.0 /100 WBC Normal [facility] Comment on above: Order Comment: Speci men Type: BLOOD SPECIMENOrdering Facility: [facility] Address: [address] [place] [address] Performed By: #### 5 7021-8 ####[facility] LABORATORYCLIA [id number] [place] [address] [place] Platelet mean volume (Bld) [Entitic vol] 10.1 fL Normal 9.0-12.7 [facility] Comment on above: Order Comment: Speci men Type: BLOOD SPECIMENOrdering Facility: [facility] Address: [address] [place] [address] Performed By: #### 5 7021-8 ####[facility] LABORATORYCLIA [id number] [place] [address] [place] Platelets (Bld) [#/Vol] 387 10*3/uL Normal 150-400 [facility] Comment on above: Order Comment: Speci men Type: BLOOD SPECIMENOrdering Facility: [facility] Address: [address] [place] [address] Performed By: #### 5 7021-8 ####[facility] LABORATORYCLIA [id number] [place] [address] [place] RBC (Bld) [#/Vol] 3.34 10*6/uL Low 4.20-6.00 [facility] Comment on above: Order Comment: Speci men Type: BLOOD SPECIMENOrdering Facility: [facility] Address: [address] [place] [address] Performed By: #### 5 7021-8 ####[facility] LABORATORYCLIA [id number] [place] [address] [place] WBC (Bld) [#/Vol] 9.29 10*3/uL Normal 3.70-11.00 [facility] Comment on above: Order Comment: Speci men Type: BLOOD SPECIMENOrdering Facility: [facility] Address: [address] [place] [address] Performed By: #### 5 7021-8 ####[facility] LABORATORYCLIA [id number] [address] [place] CONSULT PROGon 07-17-2021 CONSULT PROG Normal [facility] Magnesium SerPl-mCncon 07-17 Magnesium [Mass/Vol] 2.3 mg/dL Normal 1.7-2.3 [facility] Comment on above: Order Comment: Speci men Type: BLOOD SPECIMENOrdering Facility: [facility] Address: [address] [place] [address] Performed By: #### 2 777-1, 50969-0 ####[facility] LABORATORYCLIA [id number] [address] OF [facility] NURSING PROGon 07-17-2021 NURSING PROG Normal [facility] NURSING PROG Normal [facility] NURSING PROG Normal [facility] Phosphate SerPl-mCncon 07-17 Phosphate [Mass/Vol] 3.6 mg/dL Normal 2.7-4.8 [facility] Comment on above: Order Comment: Speci men Type: BLOOD SPECIMENOrdering Facility: [facility] Address: [address] [place] [address] Performed By: #### 2 777-1, ####[facility] LABORATORYCLIA [id number] [address] [place] aPTT PPPon 07-17-2021 aPTT Coag (PPP) [Time] 57.2 s High 23.0-32.4 [facility] Comment on above: Order Comment: Speci men Type: BLOOD SPECIMENOrdering Facility: [facility] Address: [address] [place] [address] Performed By: #### 1 4979-9 ####[facility] LABORATORYCLIA [id number] [place] [address] [place] Basic metabolic 2000 panelon 07-16-2021 Anion gap [Moles/Vol] 5 mmol/L Low 9-18 [facility] Comment on above: Order Comment: Speci men Type: BLOOD SPECIMENOrdering Facility: [facility] Address: [address] [place] [address] Performed By: #### 2 777-1, 39224-9, ####[facility] LABORATORYCLIA [id number] [place] [address] [place] Calcium [Mass/Vol] 9.1 mg/dL Normal 8.5-10.2 [facility] Comment on above: Order Comment: Speci men Type: BLOOD SPECIMENOrdering Facility: [facility] Address: [address] [place] [address] Performed By: #### 2 777-1, 21112-6, ####[facility] LABORATORYCLIA [id number] [place] [address] [place] Chloride [Moles/Vol] 101 mmol/L Normal 97-105 [facility] Comment on above: Order Comment: Speci men Type: BLOOD SPECIMENOrdering Facility: [facility] Address: [address] [place] [address] Performed By: #### 2 777-1, , ####[facility] LABORATORYCLIA [id number] [address] [place] CO2 [Moles/Vol] 35 mmol/L High 22-30 [facility] Comment on above: Order Comment: Speci men Type: BLOOD SPECIMENOrdering Facility: [facility] Address: [address] [place] [address] Performed By: #### 2 777-1, , ####[facility] LABORATORYCLIA [id number] [place] [address] [place] Creatinine [Mass/Vol] 0.73 mg/dL Normal 0.73-1.22 [facility] Comment on above: Order Comment: Speci men Type: BLOOD SPECIMENOrdering Facility: [facility] Address: [address] [place] [address] Performed By: #### 2 777-1, 72235-3, ####[facility] LABORATORYCLIA [id number] [address] [place] ESTIMATED GLOMERULAR FILTRATION RATE 98 mL/min/1.73m??? Normal >=60 [facility] Comment on above: Order Comment: Shira feldman Type: BLOOD SPECIMENOrdering Facility: [facility] Address: [address] [place] [address] Result Comment: Luzmaria mated Glomerular Filtration Rate [...] actual GFR. Performed By: #### 2 777-1, 08441-3, ####[facility] LABORATORYCLIA [id number] [place] [address] [place] Glucose [Mass/Vol] 133 mg/dL High 74-99 [facility] Comment on above: Order Comment: Shira feldman Type: BLOOD SPECIMENOrdering Facility: [facility] Address: [address] [place] [address] Result Comment: The [place] [employer] (ADA) provides guidance for cutoff [...] Standards of Medical Care in Diabetes 2016, [place] [employer]. Diabetes Care. 2016.39(Suppl 1). Performed By: #### 2 777-1, 93365-7, 10793-7 ####[facility] LABORATORYCLIA [id number] [place] [address] [place] Potassium [Moles/Vol] 4.2 mmol/L Normal 3.7-5.1 [facility] Comment on above: Order Comment: Shiar feldman Type: BLOOD SPECIMENOrdering Facility: [facility] Address: [address] [place] [address] Performed By: #### 2 777-1, 34767-2, 02639-9 ####[facility] LABORATORYCLIA [id number] [address] STATES [facility] Sodium [Moles/Vol] 141 mmol/L Normal 136-144 [facility] Comment on above: Order Comment: Speci men Type: BLOOD SPECIMENOrdering Facility: [facility] Address: [address] [place] [address] Performed By: #### 2 777-1, 27360-9, ####[facility] LABORATORYCLIA [id number] [address] STATES OF [facility] Urea nitrogen [Mass/Vol] 21 mg/dL Normal 9-24 [facility] Comment on above: Order Comment: Speci men Type: BLOOD SPECIMENOrdering Facility: [facility] Address: [address] [place] [address] Performed By: #### 2 777-1, 34838-7, ####[facility] LABORATORYCLIA [id number] [address] CBC W Auto Differential pane l (Bld)on 07-16-2021 Basophils (Bld) [#/Vol] 0.06 10*3/uL Normal <0.11 [facility] Comment on above: Order Comment: Speci men Type: BLOOD SPECIMENOrdering Facility: [facility] Address: [address] [place] [address] Performed By: #### 5 7021-8 ####[facility]ORATORYCLIA [id number] [address] Basophils/100 WBC (Bld) 0.7 % Normal [facility] Comment on above: Order Comment: Speci men Type: BLOOD SPECIMENOrdering Facility: [facility] Address: [address] [place] [address] Performed By: #### 5 7021-8 ####[facility] LABORATORYCLIA [id number] [address] Differential cell count method Nom (Bld) Auto Normal [facility] Comment on above: Order Comment: Speci men Type: BLOOD SPECIMENOrdering Facility: [facility] Address: [address] [place] [address] Performed By: #### 5 7021-8 ####[facility]ORATORYCLIA [id number] [address] Eosinophils (Bld) [#/Vol] 0.35 10*3/uL Normal <0.46 [facility] Comment on above: Order Comment: Speci men Type: BLOOD SPECIMENOrdering Facility: [facility] Address: [address] [place] [address] Performed By: #### 5 7021-8 ####[facility]ORATORYCLIA [id number] [address] Eosinophils/100 WBC (Bld) 3.9 % Normal [facility] Comment on above: Order Comment: Speci men Type: BLOOD SPECIMENOrdering Facility: [facility] Address: [address] [place] [address] Performed By: #### 5 7021-8 ####[facility] LABORATORYCLIA [id number] [address] Erythrocyte distribution width (RBC) [Ratio] 16.5 % High 11.5-15.0 [facility] Comment on above: Order Comment: Speci men Type: BLOOD SPECIMENOrdering Facility: [facility] Address: [address] [place] [address] Performed By: #### 5 7021-8 ####[facility] LABORATORYCLIA [id number] [address] Hematocrit (Bld) [Volume fraction] 30.9 % Low 39.0-51.0 [facility] Comment on above: Order Comment: Speci men Type: BLOOD SPECIMENOrdering Facility: [facility] Address: [address] [place] [address] Performed By: #### 5 7021-8 ####[facility] LABORATORYCLIA [id number] [address] OF [facility] Hemoglobin (Bld) [Mass/Vol] 9.1 g/dL Low 13.0-17.0 [facility] Comment on above: Order Comment: Speci men Type: BLOOD SPECIMENOrdering Facility: [facility] Address: [address] [place] [address] Performed By: #### 5 7021-8 ####[facility]ORATORYCLIA [id number] [address] IMMATURE GRAN % 0.4 % Normal [facility] Comment on above: Order Comment: Speci men Type: BLOOD SPECIMENOrdering Facility: [facility] Address: [address] [place] [address] Performed By: #### 5 7021-8 ####[facility]ORATORYCLIA [id number] [address] IMMATURE GRAN ABS 0.04 k/uL Normal <0.10 [facility] Comment on above: Order Comment: Speci men Type: BLOOD SPECIMENOrdering Facility: [facility] Address: [address] [place] [address] Performed By: #### 5 7021-8 ####[facility]ORATORYCLIA [id number] [address] [place] Lymphocytes (Bld) [#/Vol] 1.35 10*3/uL Normal 1.00-4.00 [facility] Comment on above: Order Comment: Speci men Type: BLOOD SPECIMENOrdering Facility: [facility] Address: [address] [place] [address] Performed By: #### 5 7021-8 ####[facility]ORATORYCLIA [id number] [address] Lymphocytes/100 WBC (Bld) 15.0 % Normal [facility] Comment on above: Order Comment: Speci men Type: BLOOD SPECIMENOrdering Facility: [facility] Address: [address] [place] [address] Performed By: #### 5 7021-8 ####[facility]ORATORYCLIA [id number] [address] MCH (RBC) [Entitic mass] 27.1 pg Normal 26.0-34.0 [facility] Comment on above: Order Comment: Speci men Type: BLOOD SPECIMENOrdering Facility: [facility] Address: [address] [place] [address] Performed By: #### 5 7021-8 ####[facility]ORATORYCLIA [id number] [address] MCHC (RBC) [Mass/Vol] 29.4 g/dL Low 30.5-36.0 [facility] Comment on above: Order Comment: Speci men Type: BLOOD SPECIMENOrdering Facility: [facility] Address: [address] [place] [address] Performed By: #### 5 7021-8 ####[facility] LABORATORYCLIA [id number] [address] MCV (RBC) [Entitic vol] 92.0 fL Normal 80.0-100.0 [facility] Comment on above: Order Comment: Speci men Type: BLOOD SPECIMENOrdering Facility: [facility] Address: [address] [place] [address] Performed By: #### 5 7021-8 ####[facility]ORATORYCLIA [id number] [address] Monocytes (Bld) [#/Vol] 0.53 10*3/uL Normal <0.87 [facility] Comment on above: Order Comment: Speci men Type: BLOOD SPECIMENOrdering Facility: [facility] Address: [address] [place] [address] Performed By: #### 5 7021-8 ####[facility]ORATORYCLIA [id number] [address] Monocytes/100 WBC (Bld) 5.9 % Normal [facility] Comment on above: Order Comment: Speci men Type: BLOOD SPECIMENOrdering Facility: [facility] Address: [address] [place] [address] Performed By: #### 5 7021-8 ####[facility]ATORYCLIA [id number] [place] [address] [place] Neutrophils (Bld) [#/Vol] 6.67 10*3/uL Normal 1.45-7.50 [facility] Comment on above: Order Comment: Speci men Type: BLOOD SPECIMENOrdering Facility: [facility] Address: [address] [place] [address] Performed By: #### 5 7021-8 ####[facility]ATORYCLIA [id number] [address] [place] Neutrophils/100 WBC (Bld) 74.1 % Normal [facility] Comment on above: Order Comment: Speci men Type: BLOOD SPECIMENOrdering Facility: [facility] Address: [address] [place] [address] Performed By: #### 5 7021-8 ####[facility]ATORYCLIA [id number] [address] [place] Nucleated RBC (Bld) [#/Vol] 10*3/uL Normal <0.01 [facility] Comment on above: Order Comment: Speci men Type: BLOOD SPECIMENOrdering Facility: [facility] Address: [address] [place] [address] Performed By: #### 5 7021-8 ####[facility]ORYCLIA [id number] [address] [place] Nucleated RBC/100 WBC (Bld) [Ratio] 0.0 /100 WBC Normal [facility] Comment on above: Order Comment: Speci men Type: BLOOD SPECIMENOrdering Facility: [facility] Address: [address] [place] [address] Performed By: #### 5 7021-8 ####[facility]ATORYCLIA [id number] [place] [address] [place] Platelet mean volume (Bld) [Entitic vol] 9.9 fL Normal 9.0-12.7 [facility] Comment on above: Order Comment: Speci men Type: BLOOD SPECIMENOrdering Facility: [facility] Address: [address] [place] [address] Performed By: #### 5 7021-8 ####[facility]ORATORYCLIA [id number] [place] [address] [place] Platelets (Bld) [#/Vol] 391 10*3/uL Normal 150-400 [facility] Comment on above: Order Comment: Speci men Type: BLOOD SPECIMENOrdering Facility: [facility] Address: [address] [place] [address] Performed By: #### 5 7021-8 ####[facility]ORATORYCLIA [id number] [place] [address] [place] RBC (Bld) [#/Vol] 3.36 10*6/uL Low 4.20-6.00 [facility] Comment on above: Order Comment: Speci men Type: BLOOD SPECIMENOrdering Facility: [facility] Address: [address] [place] [address] Performed By: #### 5 7021-8 ####[facility]ORATORYCLIA [id number] [place] [address] [place] WBC (Bld) [#/Vol] 9.00 10*3/uL Normal 3.70-11.00 [facility] Comment on above: Order Comment: Speci men Type: BLOOD SPECIMENOrdering Facility: [facility] Address: [address] [place] [address] Performed By: #### 5 7021-8 ####[facility]ORATORYCLIA [id number] [address] [place] CONSULT PROGon 07-16-2021 CONSULT PROG Normal [facility] CONSULT PROG Normal [facility] Magnesium SerPl-mCncon 07-16 Magnesium [Mass/Vol] 2.3 mg/dL Normal 1.7-2.3 [facility] Comment on above: Order Comment: Speci men Type: BLOOD SPECIMENOrdering Facility: [facility] Address: [address] [place] [address] Performed By: #### 2 777-1, 94206-5, ####[facility]ORATORYCLIA [id number] [address] STATES OF [facility] NURSING PROGon 07-16-2021 NURSING PROG Normal [facility] Phosphate SerP-ncon 07-16 Phosphate [Mass/Vol] 3.6 mg/dL Normal 2.7-4.8 [facility] Comment on above: Order Comment: Speci men Type: BLOOD SPECIMENOrdering Facility: [facility] Address: [address] [place] [address] Performed By: #### 2 777-1, 03801-2, ####[facility]ATORYCLIA [id number] [address] STATES OF [facility] Vancomycin random [Mass/Vol] on 07-16-2021 Vancomycin [Mass/Vol] 16.9 ug/mL Normal 10.0-20.0 [facility] Comment on above: Order Comment: Speci men Type: BLOOD SPECIMENOrdering Facility: [facility] Address: [address] [place] [address] Result Comment: Refe rence ranges and high/low indicator flags are provided as general guidelines only. The treating physician must determine appropriate target levels/dosing based on the specific clinical situation. Performed By: #### 4 091-5 ####[facility] LABORATORYCLIA [id number] [address] [place] aPTT PPPon 07-16-2021 aPTT Coag (PPP) [Time] 57.2 s High 23.0-32.4 [place] [facility] Comment on above: Order Comment: Speci men Type: BLOOD SPECIMENOrdering Facility: [facility] Address: [address] [place] [address] Performed By: #### 1 4979-9 ####[facility] LABORATORYCLIA [id number] [place] [address] [place] ALLIED HEALTHon 07-15-2021 ALLIED HEALTH Normal [facility] Basic metabolic 2000 panelon 07-15-2021 Anion gap [Moles/Vol] 11 mmol/L Normal 9-18 [facility] Comment on above: Order Comment: Speci men Type: BLOOD SPECIMENOrdering Facility: [facility] Address: [address] [place] [address] Performed By: #### 2 4321-2, , 2776-05 ####[facility] LABORATORYCLIA [id number] [place] [address] [place] Calcium [Mass/Vol] 8.8 mg/dL Normal 8.5-10.2 [facility] Comment on above: Order Comment: Speci men Type: BLOOD SPECIMENOrdering Facility: [facility] Address: [address] [place] [address] Performed By: #### 2 4321-2, , 2776-05 ####[facility] LABORATORYCLIA [id number] [place] [address] [place] Chloride [Moles/Vol] 101 mmol/L Normal 97-105 [facility] Comment on above: Order Comment: Speci men Type: BLOOD SPECIMENOrdering Facility: [facility] Address: [address] [place] [address] Performed By: #### 2 4321-2, , 2776-05 ####[facility]ORATORYCLIA [id number] [place] [address] [place] CO2 [Moles/Vol] 31 mmol/L High 22-30 [facility] Comment on above: Order Comment: Speci men Type: BLOOD SPECIMENOrdering Facility: [facility] Address: [address] [place] [address] Performed By: #### 2 4321-2, 59388-8, 2776-05 ####[facility]ITALCL[facility] [id number] [place] [address] [place] Creatinine [Mass/Vol] 0.76 mg/dL Normal 0.73-1.22 [facility] Comment on above: Order Comment: Speci francia Type: BLOOD SPECIMENOrdering Facility: [facility] Address: [address] [place], [place] [address] Performed By: #### 2 4321-2, , 2776-05 ####[facility]OSPITALIA [id number] [place] [address] [place] ESTIMATED GLOMERULAR FILTRATION RATE 97 mL/min/1.73m??? Normal >=60 [facility] Comment on above: Order Comment: Speccara feldman Type: BLOOD SPECIMENOrdering Facility: [facility] Address: [address] [place], [place] [address] Result Comment: Luzmaria mated Glomerular Filtration Rate [...] By: #### 2 4321-2, , 2776-05 ####[facility]OSPITALIA [id number] [place] [address] [place] Glucose [Mass/Vol] 115 mg/dL High 74-99 [facility] Comment on above: Order Comment: Speci men Type: BLOOD SPECIMENOrdering Facility: [facility] Address: [address] [id number] Result Comment: The [place] [employer] (ADA) provides guidance for cutoff [...] Standards of Medical Care in Diabetes 2016, [place] [employer]. Diabetes Care. 2016.39(Suppl 1). Performed By: #### 2 4321-2, , 2776-05 ####[facility]ATORYCLIA [id number] [place] [address] [place] Potassium [Moles/Vol] 4.0 mmol/L Normal 3.7-5.1 [facility] Comment on above: Order Comment: Shira feldman Type: BLOOD SPECIMENOrdering Facility: [facility] Address: [address] [place] [address] Performed By: #### 2 4321-2, , 2776-05 ####[facility]ITALCLIA [id number] [address] [place] Sodium [Moles/Vol] 143 mmol/L Normal 136-144 [facility] Comment on above: Order Comment: Shira feldman Type: BLOOD SPECIMENOrdering Facility: [facility] Address: [address] [place] [address] Performed By: #### 2 4321-2, , 2776-05 ####[facility]ORATORYCLIA [id number] [place] [address] [place] Urea nitrogen [Mass/Vol] 17 mg/dL Normal 9-24 [facility] Comment on above: Order Comment: Shira feldman Type: BLOOD SPECIMENOrdering Facility: [facility] Address: [address] [place] [address] Performed By: #### 2 4321-2, , 2776-05 ####[facility] LABORATORYCLIA [id number] [place] [id number] [place] CASE MANAGEMon 07-15-2021 CASE MANAGEM Normal [facility] CBC panel Auto (Bld)on 07-15 Erythrocyte distribution width (RBC) [Ratio] 16.4 % High 11.5-15.0 [facility] Comment on above: Order Comment: Speci men Type: BLOOD SPECIMENOrdering Facility: [facility] Address: [address] [place] [address] Performed By: #### 5 8410-2 ####[facility] LABORATORYCLIA [id number] [address] Hematocrit (Bld) [Volume fraction] 30.3 % Low 39.0-51.0 [facility] Comment on above: Order Comment: Speci men Type: BLOOD SPECIMENOrdering Facility: [facility] Address: [address] [place] [address] Performed By: #### 5 8410-2 ####[facility] LABORATORYCLIA [id number] [address] STATES OF [facility] Hemoglobin (Bld) [Mass/Vol] 9.2 g/dL Low 13.0-17.0 [facility] Comment on above: Order Comment: Speci men Type: BLOOD SPECIMENOrdering Facility: [facility] Address: [address] [place] [address] Performed By: #### 5 8410-2 ####[facility] LABORATORYCLIA [id number] [address] [place] MCH (RBC) [Entitic mass] 28.3 pg Normal 26.0-34.0 [facility] Comment on above: Order Comment: Speci men Type: BLOOD SPECIMENOrdering Facility: [facility] Address: [address] [place] [address] Performed By: #### 5 8410-2 ####[facility]ORATORYCLIA [id number] [address] [place] MCHC (RBC) [Mass/Vol] 30.4 g/dL Low 30.5-36.0 [facility] Comment on above: Order Comment: Speci men Type: BLOOD SPECIMENOrdering Facility: [facility] Address: [address] [address] Performed By: #### 5 8410-2 ####[facility] LABORATORYCLIA [id number] [address] MCV (RBC) [Entitic vol] 93.2 fL Normal 80.0-100.0 [facility] Comment on above: Order Comment: Speci men Type: BLOOD SPECIMENOrdering Facility: [facility] Address: [address] [place] [address] Performed By: #### 5 8410-2 ####[facility] LABORATORYCLIA [id number] [address] Nucleated RBC (Bld) [#/Vol] 10*3/uL Normal <0.01 [facility] Comment on above: Order Comment: Speci men Type: BLOOD SPECIMENOrdering Facility: [facility] Address: [address] [place] [address] Performed By: #### 5 8410-2 ####[facility]ORATORYCLIA [id number] [address] Platelet mean volume (Bld) [Entitic vol] 9.9 fL Normal 9.0-12.7 [facility] Comment on above: Order Comment: Speci men Type: BLOOD SPECIMENOrdering Facility: [facility] Address: [address] [place] [address] Performed By: #### 5 8410-2 ####[facility] LABORATORYCLIA [id number] [address] Platelets (Bld) [#/Vol] 381 10*3/uL Normal 150-400 [facility] Comment on above: Order Comment: Speci men Type: BLOOD SPECIMENOrdering Facility: [facility] Address: [address] [place] [address] Performed By: #### 5 8410-2 ####[facility]ORATORYCLIA [id number] [address] [place] RBC (Bld) [#/Vol] 3.25 10*6/uL Low 4.20-6.00 [facility] Comment on above: Order Comment: Speci men Type: BLOOD SPECIMENOrdering Facility: [facility] Address: [address] [place] [address] Performed By: #### 5 8410-2 ####[facility]ATORYCLIA [id number] [place] [address] [place] WBC (Bld) [#/Vol] 8.80 10*3/uL Normal 3.70-11.00 [facility] Comment on above: Order Comment: Speci men Type: BLOOD SPECIMENOrdering Facility: [facility] Address: [address] [place] [address] Performed By: #### 5 8410-2 ####[facility] LABORATORYCLIA [id number] [address] [place] Magnesium SerPl-mCncon 07-15 Magnesium [Mass/Vol] 2.2 mg/dL Normal 1.7-2.3 [facility] Comment on above: Order Comment: Speci men Type: BLOOD SPECIMENOrdering Facility: [facility] Address: [address] [place] [address] Performed By: #### 2 4321-2, , 2776-05 ####[facility]ORATORYCLIA [id number] [place] [address] [place] NURSING PROGon 07-15-2021 NURSING PROG Normal [facility] NURSING PROG Normal [facility] NURSING PROG Normal [facility] NUTRITIONon 07-15-2021 NUTRITION Normal [facility] Phosphate SerPl-mCncon 07-15 Phosphate [Mass/Vol] 3.4 mg/dL Normal 2.7-4.8 [facility] Comment on above: Order Comment: Speci men Type: BLOOD SPECIMENOrdering Facility: [facility] Address: [address] [place] [address] Performed By: #### 2 4321-2, , 2777-1 ####[facility]ORATORYCLIA [id number] [place] [address] [place] THERAPY NTon 07-15-2021 THERAPY NT Normal [facility] US DVT UPPER LTon 07-15-2021 US DVT UPPER LT Normal [facility] XR CHEST 1V FRONTALon 2021 XR CHEST 1V FRONTAL Normal [facility] aPTT PPPon 07-15-2021 aPTT Coag (PPP) [Time] 59.9 s High 23.0-32.4 [facility] Comment on above: Order Comment: Speci men Type: BLOOD SPECIMENOrdering Facility: [facility] Address: [address] [place] [address] Performed By: #### 1 4979-9 ####[facility]ORATORYCLIA [id number] [place] [address] [place] Basic metabolic 2000 panelon 07-14-2021 Anion gap [Moles/Vol] 9 mmol/L Normal 9-18 [facility] Comment on above: Order Comment: Speci men Type: BLOOD SPECIMENOrdering Facility: [facility] Address: [address] [place] [address] Performed By: #### 1 9123-9, 2777-1, 97759-4 ####[facility]ITALCLIA [id number] [place] [address] [place] Calcium [Mass/Vol] 8.5 mg/dL Normal 8.5-10.2 [facility] Comment on above: Order Comment: Speci men Type: BLOOD SPECIMENOrdering Facility: [facility] Address: [address] [address] Performed By: #### 1 9123-9, 2777-1, 04812-4 ####[facility]ORATORYCLIA [id number] [place] [address] [place] Chloride [Moles/Vol] 99 mmol/L Normal 97-105 [facility] Comment on above: Order Comment: Speci men Type: BLOOD SPECIMENOrdering Facility: [facility] Address: [address] [place] [address] Performed By: #### 1 9123-9, 2777, 16508-8 ####[facility]ITALCLIA [id number] [place] [id number] [place] CO2 [Moles/Vol] 31 mmol/L High 22-30 [facility] Comment on above: Order Comment: Speci men Type: BLOOD SPECIMENOrdering Facility: [facility] Address: [address] [place] [address] Performed By: #### 1 9123-9, 27711-04, ####[facility]ITALCLIA [id number] [place] [id number] [place] Creatinine [Mass/Vol] 0.74 mg/dL Normal 0.73-1.22 [facility] Comment on above: Order Comment: Speci men Type: BLOOD SPECIMENOrdering Facility: [facility] Address: [address] [place] [address] Performed By: #### 1 9123-9, 27711-04, ####[facility] HOSPITALIA [id number] [address] OF [facility] ESTIMATED GLOMERULAR FILTRATION RATE 98 mL/min/1.73m??? Normal >=60 [facility] Comment on above: Order Comment: Speci men Type: BLOOD SPECIMENOrdering Facility: [facility] Address: [address] [place] [address] Result Comment: Luzmaria mated Glomerular Filtration Rate [...] GFR. Performed By: #### 1 9123-9, 2777-1, 14086-2 ####[facility]ORATORYCLIA [id number] [place] [id number] [place] Glucose [Mass/Vol] 117 mg/dL High 74-99 [facility] Comment on above: Order Comment: Shira feldman Type: BLOOD SPECIMENOrdering Facility: [facility] Address: [address] [place], [place] [address] Result Comment: The [place] [employer] (ADA) provides guidance for cutoff [...] Standards of Medical Care in Diabetes 2016, [place] [employer]. Diabetes Care. 2016.39(Suppl 1). Performed By: #### 1 9123-9, 2777-, 39588-9 ####[facility]ATORYCLIA [id number] [place] [address] [place] Potassium [Moles/Vol] 3.7 mmol/L Normal 3.7-5.1 [facility] Comment on above: Order Comment: Shira feldman Type: BLOOD SPECIMENOrdering Facility: [facility] Address: [address] [place], [place] [address] Performed By: #### 1 9123-9, 2777-, 49126-1 ####[facility]ORATORYCLIA [id number] [place] [address] [place] Sodium [Moles/Vol] 139 mmol/L Normal 136-144 [facility] Comment on above: Order Comment: Shira feldman Type: BLOOD SPECIMENOrdering Facility: [facility] Address: [address] [place], [place] [address] Performed By: #### 1 9123-9, 2777-, 96863-0 ####[facility]ORATORYCLIA [id number] [place] [address] [place] Urea nitrogen [Mass/Vol] 16 mg/dL Normal 9-24 [facility] Comment on above: Order Comment: Speci men Type: BLOOD SPECIMENOrdering Facility: [facility] Address: [address] [place] [address] Performed By: #### 1 9123-9, 2777-1, 33433-4 ####[facility]ORATORYCLIA [id number] [address] STATES [facility] CBC panel Auto (Bld)on 07-14 Erythrocyte distribution width (RBC) [Ratio] 16.2 % High 11.5-15.0 [facility] Comment on above: Order Comment: Speci men Type: BLOOD SPECIMENOrdering Facility: [facility] Address: [address] [place] [address] Performed By: #### 5 8410-2 ####[facility]ORATORYCLIA [id number] [address] STATES [facility] Hematocrit (Bld) [Volume fraction] 29.7 % Low 39.0-51.0 [facility] Comment on above: Order Comment: Speci men Type: BLOOD SPECIMENOrdering Facility: [facility] Address: [address] [place] [address] Performed By: #### 5 8410-2 ####[facility]ORATORYCLIA [id number] [address] STATES OF [facility] Hemoglobin (Bld) [Mass/Vol] 8.8 g/dL Low 13.0-17.0 [facility] Comment on above: Order Comment: Speci men Type: BLOOD SPECIMENOrdering Facility: [facility] Address: [address] [place] [address] Performed By: #### 5 8410-2 ####[facility]ORATORYCLIA [id number] [address] MCH (RBC) [Entitic mass] 27.5 pg Normal 26.0-34.0 [facility] Comment on above: Order Comment: Speci men Type: BLOOD SPECIMENOrdering Facility: [facility] Address: [address] [address] Performed By: #### 5 8410-2 ####[facility]ORATORYCLIA [id number] [address] MCHC (RBC) [Mass/Vol] 29.6 g/dL Low 30.5-36.0 [facility] Comment on above: Order Comment: Speci men Type: BLOOD SPECIMENOrdering Facility: [facility] Address: [address] [place] [address] Performed By: #### 5 8410-2 ####[facility]ORATORYCLIA [id number] [address] MCV (RBC) [Entitic vol] 92.8 fL Normal 80.0-100.0 [facility] Comment on above: Order Comment: Speci men Type: BLOOD SPECIMENOrdering Facility: [facility] Address: [address] [place] [address] Performed By: #### 5 8410-2 ####[facility]ORATORYCLIA [id number] [address] Nucleated RBC (Bld) [#/Vol] 10*3/uL Normal <0.01 [facility] Comment on above: Order Comment: Speci men Type: BLOOD SPECIMENOrdering Facility: [facility] Address: [address] [place] [address] Performed By: #### 5 8410-2 ####[facility]ATORYCLIA [id number] [address] Platelet mean volume (Bld) [Entitic vol] 9.6 fL Normal 9.0-12.7 [facility] Comment on above: Order Comment: Speci men Type: BLOOD SPECIMENOrdering Facility: [facility] Address: [address] [place] [address] Performed By: #### 5 8410-2 ####[facility]ATORYCLIA [id number] [address] [place] Platelets (Bld) [#/Vol] 354 10*3/uL Normal 150-400 [facility] Comment on above: Order Comment: Speci men Type: BLOOD SPECIMENOrdering Facility: [facility] Address: [address] [place] [address] Performed By: #### 5 8410-2 ####[facility]ATORYCLIA [id number] [place] [address] [place] [facility] RBC (Bld) [#/Vol] 3.20 10*6/uL Low 4.20-6.00 [facility] Comment on above: Order Comment: Speci men Type: BLOOD SPECIMENOrdering Facility: [facility] Address: [address] [place] [address] Performed By: #### 5 8410-2 ####[facility]ORATORYCLIA [id number] [address] STATES OF [facility] WBC (Bld) [#/Vol] 9.41 10*3/uL Normal 3.70-11.00 [facility] Comment on above: Order Comment: Speci men Type: BLOOD SPECIMENOrdering Facility: [facility] Address: [address] [place] [address] Performed By: #### 5 8410-2 ####[facility]ORATORYCLIA [id number] [address] CONSULT PROGon 07-14-2021 CONSULT PROG Normal [facility] Magnesium SerPl-mCncon 07-14 Magnesium [Mass/Vol] 2.2 mg/dL Normal 1.7-2.3 [facility] Comment on above: Order Comment: Speci men Type: BLOOD SPECIMENOrdering Facility: [facility] Address: [address] [place] [address] Performed By: #### 1 9123-9, 2777-1, 67784-1 ####[facility]ORATORYCLIA [id number] [address] [place] NURSING PROGon 07-14-2021 NURSING PROG Normal [facility] Phosphate SerPl-mCncon 07-14 Phosphate [Mass/Vol] 3.6 mg/dL Normal 2.7-4.8 [facility] Comment on above: Order Comment: Speci men Type: BLOOD SPECIMENOrdering Facility: [facility] Address: [address] [place] [address] Performed By: #### 1 9123-9, 2777-1, 41588-1 ####[facility]ORATORYCLIA [id number] [address] STATES [facility] aPTT PPPon 07-14-2021 aPTT Coag (PPP) [Time] 62.9 s High 23.0-32.4 [facility] Comment on above: Order Comment: Speci men Type: BLOOD SPECIMENOrdering Facility: [facility] Address: [address] [place] [address] Performed By: #### 1 4979-9 ####[facility]ITALCLIA [id number] [address] STATES OF [facility] aPTT Coag (PPP) [Time] 55.2 s High 23.0-32.4 [facility] Comment on above: Order Comment: Speci men Type: BLOOD SPECIMENOrdering Facility: [facility] Address: [address] [place] [address] Performed By: #### 1 4979-9 ####[facility]ORATORYCLIA [id number] [address] STATES OF [facility] Basic metabolic 2000 panelon 07-13-2021 Anion gap [Moles/Vol] 10 mmol/L Normal 9-18 [facility] Comment on above: Order Comment: Speci men Type: BLOOD SPECIMENOrdering Facility: [facility] Address: [address] [place] [address] Performed By: #### 1 9123-9, 2777-1, 29484-8 ####[facility]ORATORYCLIA [id number] [address] STATES OF [facility] Calcium [Mass/Vol] 8.5 mg/dL Normal 8.5-10.2 [facility] Comment on above: Order Comment: Speci men Type: BLOOD SPECIMENOrdering Facility: [facility] Address: [address] [place] [address] Performed By: #### 1 9123-9, 2776-05, 34387-2 ####[facility]ORATORYCLIA [id number] [place] [address] [place] Chloride [Moles/Vol] 98 mmol/L Normal 97-105 [facility] Comment on above: Order Comment: Speci men Type: BLOOD SPECIMENOrdering Facility: [facility] Address: [address] [place] [address] Performed By: #### 1 9123-9, 2776-05, ####[facility]ORATORYCLIA [id number] [address] [place] CO2 [Moles/Vol] 32 mmol/L High 22-30 [facility] Comment on above: Order Comment: Speci men Type: BLOOD SPECIMENOrdering Facility: [facility] Address: [address] [place] [address] Performed By: #### 1 9123-9, 2776-05, ####[facility]ORATORYCLIA [id number] [address] [place] Creatinine [Mass/Vol] 0.75 mg/dL Normal 0.73-1.22 [facility] Comment on above: Order Comment: Speci men Type: BLOOD SPECIMENOrdering Facility: [facility] Address: [address] [address] Performed By: #### 1 9123-9, 27711-04, 27270-4 ####[facility]ORATORYCLIA [id number] [address] ESTIMATED GLOMERULAR FILTRATION RATE 98 mL/min/1.73m??? Normal >=60 [facility] Comment on above: Order Comment: Speci men Type: BLOOD SPECIMENOrdering Facility: [facility] Address: [address] [place] [address] Result Comment: Luzmaria mated Glomerular Filtration Rate [...] GFR. Performed By: #### 1 9123-9, 2777-, 33763-8 ####[facility]ORATORYCLIA [id number] [place] [address] [place] Glucose [Mass/Vol] 118 mg/dL High 74-99 [facility] Comment on above: Order Comment: Shira feldman Type: BLOOD SPECIMENOrdering Facility: [facility] Address: [address] [place] [address] Result Comment: The [place] [employer] (ADA) provides guidance for cutoff [...] Standards of Medical Care in Diabetes 2016, [place] [employer]. Diabetes Care. 2016.39(Suppl 1). Performed By: #### 1 9123-9, 2777-, 49052-2 ####[facility] LABORATORYIA [id number] [place] [address] [place] Potassium [Moles/Vol] 3.6 mmol/L Low 3.7-5.1 [facility] Comment on above: Order Comment: Shira feldman Type: BLOOD SPECIMENOrdering Facility: [facility] Address: [address] [place] [address] Performed By: #### 1 9123-9, 2777-, 22627-7 ####[facility]ORATORYCLIA [id number] [address] [place] Sodium [Moles/Vol] 140 mmol/L Normal 136-144 [facility] Comment on above: Order Comment: Speci men Type: BLOOD SPECIMENOrdering Facility: [facility] Address: [address] [place] [address] Performed By: #### 1 9123-9, 2777-1, 15682-4 ####[facility]ATORYCLIA [id number] [address] [place] Urea nitrogen [Mass/Vol] 15 mg/dL Normal 9-24 [facility] Comment on above: Order Comment: Speci men Type: BLOOD SPECIMENOrdering Facility: [facility] Address: [address] [place] [address] Performed By: #### 1 9123-9, 2777-1, 76088-8 ####[facility] LABORATORYCLIA [id number] [address] CASE MANAGEMon 07-13-2021 CASE MANAGEM Normal [facility] CBC panel Auto (Bld)on 07-13 Erythrocyte distribution width (RBC) [Ratio] 16.2 % High 11.5-15.0 [facility] Comment on above: Order Comment: Speci men Type: BLOOD SPECIMENOrdering Facility: [facility] Address: [address] [place] [address] Performed By: #### 5 8410-2 ####[facility] LABORATORYCLIA [id number] [address] STATES OF [facility] Hematocrit (Bld) [Volume fraction] 29.5 % Low 39.0-51.0 [facility] Comment on above: Order Comment: Speci men Type: BLOOD SPECIMENOrdering Facility: [facility] Address: [address] [place] [address] Performed By: #### 5 8410-2 ####[facility] LABORATORYCLIA [id number] [place] [address] [place] Hemoglobin (Bld) [Mass/Vol] 8.9 g/dL Low 13.0-17.0 [facility] Comment on above: Order Comment: Speci men Type: BLOOD SPECIMENOrdering Facility: [facility] Address: [address] [place] [address] Performed By: #### 5 8410-2 ####[facility] LABORATORYCLIA [id number] [address] MCH (RBC) [Entitic mass] 27.8 pg Normal 26.0-34.0 [facility] Comment on above: Order Comment: Speci men Type: BLOOD SPECIMENOrdering Facility: [facility] Address: [address] [place] [address] Performed By: #### 5 8410-2 ####[facility] LABORATORYCLIA [id number] [address] [place] [facility] MCHC (RBC) [Mass/Vol] 30.2 g/dL Low 30.5-36.0 [facility] Comment on above: Order Comment: Speci men Type: BLOOD SPECIMENOrdering Facility: [facility] Address: [address] [place] [address] Performed By: #### 5 8410-2 ####[facility] LABORATORYCLIA [id number] [address] MCV (RBC) [Entitic vol] 92.2 fL Normal 80.0-100.0 [facility] Comment on above: Order Comment: Speci men Type: BLOOD SPECIMENOrdering Facility: [facility] Address: [address] [place] [address] Performed By: #### 5 8410-2 ####[facility] LABORATORYCLIA [id number] [address] Nucleated RBC (Bld) [#/Vol] 10*3/uL Normal <0.01 [facility] Comment on above: Order Comment: Speci men Type: BLOOD SPECIMENOrdering Facility: [facility] Address: [address] [place] [address] Performed By: #### 5 8410-2 ####[facility] LABORATORYCLIA [id number] [address] Platelet mean volume (Bld) [Entitic vol] 9.8 fL Normal 9.0-12.7 [facility] Comment on above: Order Comment: Speci men Type: BLOOD SPECIMENOrdering Facility: [facility] Address: [address] [place] [address] Performed By: #### 5 8410-2 ####[facility] LABORATORYCLIA [id number] [address] [place] Platelets (Bld) [#/Vol] 356 10*3/uL Normal 150-400 [facility] Comment on above: Order Comment: Speci men Type: BLOOD SPECIMENOrdering Facility: [facility] Address: [address] [place] [address] Performed By: #### 5 8410-2 ####[facility]ORATORYCLIA [id number] [address] [place] RBC (Bld) [#/Vol] 3.20 10*6/uL Low 4.20-6.00 [facility] Comment on above: Order Comment: Speci men Type: BLOOD SPECIMENOrdering Facility: [facility] Address: [address] [place] [address] Performed By: #### 5 8410-2 ####[facility] LABORATORYCLIA [id number] [address] [place] WBC (Bld) [#/Vol] 9.20 10*3/uL Normal 3.70-11.00 [facility] Comment on above: Order Comment: Speci men Type: BLOOD SPECIMENOrdering Facility: [facility] Address: [address] [place] [address] Performed By: #### 5 8410-2 ####[facility] LABORATORYCLIA [id number] [address] OF [facility] CONSULT PROGon 07-13-2021 CONSULT PROG Normal [facility] CONSULT PROG Normal [facility] CONSULT PROG Normal [facility] Magnesium SerPl-mCncon 07-13 Magnesium [Mass/Vol] 2.1 mg/dL Normal 1.7-2.3 [facility] Comment on above: Order Comment: Speci men Type: BLOOD SPECIMENOrdering Facility: [facility] Address: [address] [place] [address] Performed By: #### 1 9123-9, 2777-1, 84308-8 ####[facility] LABORATORYCLIA [id number] [address] Phosphate SerPl-mCncon 07-13 Phosphate [Mass/Vol] 3.7 mg/dL Normal 2.7-4.8 [facility] Comment on above: Order Comment: Speci men Type: BLOOD SPECIMENOrdering Facility: [facility] Address: [address] [place] [address] Performed By: #### 1 9123-9, 2777-1, 21109-1 ####[facility] LABORATORYCLIA [id number] [address] THERAPY NTon 07-13-2021 THERAPY NT Normal [facility] THERAPY NT Normal [facility] Vancomycin random [Mass/Vol] on 07-13-2021 Vancomycin [Mass/Vol] 31.7 ug/mL High 10.0-20.0 [facility] Comment on above: Order Comment: Speci men Type: BLOOD SPECIMENOrdering Facility: [facility] Address: [address] [place] [address] Result Comment: Refe rence ranges and high/low indicator flags are provided as general guidelines only. The treating physician must determine appropriate target levels/dosing based on the specific clinical situation. Performed By: #### 4 091-5 ####[facility]ORATORYCLIA [id number] [address] [place] aPTT PPPon 07-13-2021 aPTT Coag (PPP) [Time] 47.3 s High 23.0-32.4 [facility] Comment on above: Order Comment: Speci men Type: BLOOD SPECIMENOrdering Facility: [facility] Address: [address] [place] [address] Performed By: #### 1 4979-9 ####[facility]ORATORYCLIA [id number] [address] [place] [facility] aPTT Coag (PPP) [Time] 51.2 s High 23.0-32.4 [facility] Comment on above: Order Comment: Speci men Type: BLOOD SPECIMENOrdering Facility: [facility] Address: [address] [place] [address] Performed By: #### 1 4979-9 ####[facility] LABORATORYCLIA [id number] [address] [place] [facility] aPTT Coag (PPP) [Time] 47.5 s High 23.0-32.4 [facility] Comment on above: Order Comment: Speci men Type: BLOOD SPECIMENOrdering Facility: [facility] Address: [address] [place] [address] Performed By: #### 1 4979-9 ####[facility] LABORATORYCLIA [id number] [place] [address] [place] Basic metabolic 2000 panelon 07-12-2021 Anion gap [Moles/Vol] 7 mmol/L Low 9-18 [facility] Comment on above: Order Comment: Speci men Type: BLOOD SPECIMENOrdering Facility: [facility] Address: [address] [place] [address] Performed By: #### 1 9123-9, 2777-1, 36625-5 ####[facility] LABORATORYCLIA [id number] [address] [place] [facility] Calcium [Mass/Vol] 8.3 mg/dL Low 8.5-10.2 [facility] Comment on above: Order Comment: Speci men Type: BLOOD SPECIMENOrdering Facility: [facility] Address: [address] [place] [address] Performed By: #### 1 9123-9, 2777-1, 24618-7 ####[facility] LABORATORYCLIA [id number] [place] [address] [place] Chloride [Moles/Vol] 101 mmol/L Normal 97-105 [facility] Comment on above: Order Comment: Speci men Type: BLOOD SPECIMENOrdering Facility: [facility] Address: [address] [place] [address] Performed By: #### 1 9123-9, 2777-1, 79477-1 ####[facility] LABORATORYCLIA [id number] [place] [address] [place] CO2 [Moles/Vol] 32 mmol/L High 22-30 [facility] Comment on above: Order Comment: Speci men Type: BLOOD SPECIMENOrdering Facility: [facility] Address: [address] [place] [address] Performed By: #### 1 9123-9, 2777-, 40446-9 ####[facility] LABORATORYCLIA [id number] [address] [place] Creatinine [Mass/Vol] 0.70 mg/dL Low 0.73-1.22 [facility] Comment on above: Order Comment: Speci men Type: BLOOD SPECIMENOrdering Facility: [facility] Address: [address] [place] [address] Performed By: #### 1 9123-9, 2777-, 79647-0 ####[facility] LABORATORYCLIA [id number] [address] OF [facility] ESTIMATED GLOMERULAR FILTRATION RATE 100 mL/min/1.73m??? Normal >=60 [facility] Comment on above: Order Comment: Speci men Type: BLOOD SPECIMENOrdering Facility: [facility] Address: [address] [place] [address] Result Comment: Luzmaria mated Glomerular Filtration Rate [...] GFR. Performed By: #### 1 9123-9, 2777-, 41959-8 ####[facility] LABORATORYCLIA [id number] [place] [address] [place] Glucose [Mass/Vol] 104 mg/dL High 74-99 [facility] Comment on above: Order Comment: Shira feldman Type: BLOOD SPECIMENOrdering Facility: [facility] Address: [address] [place] [id number] Result Comment: The [place] [employer] (ADA) provides guidance for cutoff [...] Standards of Medical Care in Diabetes 2016, [place] [employer]. Diabetes Care. 2016.39(Suppl 1). Performed By: #### 1 9123-9, 2777, 45458-1 ####[facility] LABORATORYCLIA [id number] [place] [address] [place] Potassium [Moles/Vol] 3.7 mmol/L Normal 3.7-5.1 [facility] Comment on above: Order Comment: Shira feldman Type: BLOOD SPECIMENOrdering Facility: [facility] Address: [address] [place] [address] Performed By: #### 1 9123-9, 2777-, 02020-2 ####[facility] LABORATORYCLIA [id number] [place] [address] [place] Sodium [Moles/Vol] 140 mmol/L Normal 136-144 [facility] Comment on above: Order Comment: Speci men Type: BLOOD SPECIMENOrdering Facility: [facility] Address: [address] [address] Performed By: #### 1 9123-9, 2777-1, 94917-5 ####[facility]ORATORYCLIA [id number] [address] [place] [facility] Urea nitrogen [Mass/Vol] 12 mg/dL Normal 9-24 [facility] Comment on above: Order Comment: Speci men Type: BLOOD SPECIMENOrdering Facility: [facility] Address: [address] [address] Performed By: #### 1 9123-9, 2777, 63408-0 ####[facility]ORATORYCLIA [id number] [address] [place] [facility] CBC panel Auto (Bld)on 07-12 Erythrocyte distribution width (RBC) [Ratio] 16.1 % High 11.5-15.0 [facility] Comment on above: Order Comment: Speci men Type: BLOOD SPECIMENOrdering Facility: [facility] Address: [address] [place] [address] Performed By: #### 5 8410-2 ####[facility] LABORATORYCLIA [id number] [address] [place] [facility] Hematocrit (Bld) [Volume fraction] 28.2 % Low 39.0-51.0 [facility] Comment on above: Order Comment: Speci men Type: BLOOD SPECIMENOrdering Facility: [facility] Address: [address] [address] Performed By: #### 5 8410-2 ####[facility]ORATORYCLIA [id number] [address] [place] [facility] Hemoglobin (Bld) [Mass/Vol] 8.5 g/dL Low 13.0-17.0 [facility] Comment on above: Order Comment: Speci men Type: BLOOD SPECIMENOrdering Facility: [facility] Address: [address] [address] Performed By: #### 5 8410-2 ####[facility] LABORATORYCLIA [id number] [address] MCH (RBC) [Entitic mass] 26.8 pg Normal 26.0-34.0 [facility] Comment on above: Order Comment: Speci men Type: BLOOD SPECIMENOrdering Facility: [facility] Address: [address] [place] [address] Performed By: #### 5 8410-2 ####[facility]ORATORYCLIA [id number] [address] MCHC (RBC) [Mass/Vol] 30.1 g/dL Low 30.5-36.0 [facility] Comment on above: Order Comment: Speci men Type: BLOOD SPECIMENOrdering Facility: [facility] Address: [address] [place] [address] Performed By: #### 5 8410-2 ####[facility] LABORATORYCLIA [id number] [address] MCV (RBC) [Entitic vol] 89.0 fL Normal 80.0-100.0 [facility] Comment on above: Order Comment: Speci men Type: BLOOD SPECIMENOrdering Facility: [facility] Address: [address] [place] [address] Performed By: #### 5 8410-2 ####[facility]ORATORYCLIA [id number] [address] Nucleated RBC (Bld) [#/Vol] 10*3/uL Normal <0.01 [facility] Comment on above: Order Comment: Speci men Type: BLOOD SPECIMENOrdering Facility: [facility] Address: [address] [place] [address] Performed By: #### 5 8410-2 ####[facility] LABORATORYCLIA [id number] [address] Platelet mean volume (Bld) [Entitic vol] 9.6 fL Normal 9.0-12.7 [facility] Comment on above: Order Comment: Speci men Type: BLOOD SPECIMENOrdering Facility: [facility] Address: [address] [place] [address] Performed By: #### 5 8410-2 ####[facility]ORATORYCLIA [id number] [address] [place] Platelets (Bld) [#/Vol] 340 10*3/uL Normal 150-400 [facility] Comment on above: Order Comment: Speci men Type: BLOOD SPECIMENOrdering Facility: [facility] Address: [address] [place] [address] Performed By: #### 5 8410-2 ####[facility]ORATORYCLIA [id number] [address] [place] [facility] RBC (Bld) [#/Vol] 3.17 10*6/uL Low 4.20-6.00 [facility] Comment on above: Order Comment: Speci men Type: BLOOD SPECIMENOrdering Facility: [facility] Address: [address] [place] [address] Performed By: #### 5 8410-2 ####[facility]ORATORYCLIA [id number] [address] WBC (Bld) [#/Vol] 8.66 10*3/uL Normal 3.70-11.00 [facility] Comment on above: Order Comment: Speci men Type: BLOOD SPECIMENOrdering Facility: [facility] Address: [address] [place] [address] Performed By: #### 5 8410-2 ####[facility]ORATORYCLIA [id number] [address] [place] CONSULTon 07-12-2021 CONSULT Normal [facility] CONSULT PROGon 07-12-2021 CONSULT PROG Normal [facility] Magnesium SerPl-mCncon 07-12 Magnesium [Mass/Vol] 2.1 mg/dL Normal 1.7-2.3 [facility] Comment on above: Order Comment: Speci men Type: BLOOD SPECIMENOrdering Facility: [facility] Address: [address] [place] [address] Performed By: #### 1 9123-9, 2777-1, 75758-5 ####[facility]ORATORYCLIA [id number] [address] NURSING PROGon 07-12-2021 NURSING PROG Normal [facility] Phosphate SerPl-mCncon 07-12 Phosphate [Mass/Vol] 3.1 mg/dL Normal 2.7-4.8 [facility] Comment on above: Order Comment: Speci men Type: BLOOD SPECIMENOrdering Facility: [facility] Address: [address] [place] [address] Performed By: #### 1 9123-9, 2777-1, 65880-6 ####[facility]ORATORYCLIA [id number] [address] THERAPY NTon 07-12-2021 THERAPY NT Normal [facility] aPTT PPPon 07-12-2021 aPTT Coag (PPP) [Time] 49.5 s High 23.0-32.4 [facility] Comment on above: Order Comment: Speci men Type: BLOOD SPECIMENOrdering Facility: [facility] Address: [address] [place] [address] Performed By: #### 1 4979-9 ####[facility] LABORATORYCLIA [id number] [address] [place] [facility] aPTT Coag (PPP) [Time] 68.0 s High 23.0-32.4 [facility] Comment on above: Order Comment: Speci men Type: BLOOD SPECIMENOrdering Facility: [facility] Address: [address] [place] [address] Performed By: #### 1 4979-9 ####[facility] LABORATORYCLIA [id number] [address] aPTT Coag (PPP) [Time] 80.0 s High 23.0-32.4 [facility] Comment on above: Order Comment: Speci men Type: BLOOD SPECIMENOrdering Facility: [facility] Address: [address] [place] [address] Performed By: #### 1 4979-9 ####[facility] LABORATORYCLIA [id number] [address] [place] CASE MGT INIT ASSESon 2021 CASE MGT INIT ASSES Normal [facility] CBC panel Auto (Bld)on 07-11 Erythrocyte distribution width (RBC) [Ratio] 16.3 % High 11.5-15.0 [facility] Comment on above: Order Comment: Speci men Type: BLOOD SPECIMENOrdering Facility: [facility] Address: [address] [place] [address] Performed By: #### 5 8410-2 ####[facility]ORATORYCLIA [id number] [address] [place] [facility] Hematocrit (Bld) [Volume fraction] 28.3 % Low 39.0-51.0 [facility] Comment on above: Order Comment: Speci men Type: BLOOD SPECIMENOrdering Facility: [facility] Address: [address] [place] [address] Performed By: #### 5 8410-2 ####[facility]ORATORYCLIA [id number] [address] [place] Hemoglobin (Bld) [Mass/Vol] 8.8 g/dL Low 13.0-17.0 [facility] Comment on above: Order Comment: Speci men Type: BLOOD SPECIMENOrdering Facility: [facility] Address: [address] [place] [address] Performed By: #### 5 8410-2 ####[facility]ORATORYCLIA [id number] [address] [place] MCH (RBC) [Entitic mass] 27.4 pg Normal 26.0-34.0 [facility] Comment on above: Order Comment: Speci men Type: BLOOD SPECIMENOrdering Facility: [facility] Address: [address] [place] [address] Performed By: #### 5 8410-2 ####[facility] LABORATORYCLIA [id number] [address] MCHC (RBC) [Mass/Vol] 31.1 g/dL Normal 30.5-36.0 [facility] Comment on above: Order Comment: Speci men Type: BLOOD SPECIMENOrdering Facility: [facility] Address: [address] [place] [address] Performed By: #### 5 8410-2 ####[facility] LABORATORYCLIA [id number] [address] MCV (RBC) [Entitic vol] 88.2 fL Normal 80.0-100.0 [facility] Comment on above: Order Comment: Speci men Type: BLOOD SPECIMENOrdering Facility: [facility] Address: [address] [place] [address] Performed By: #### 5 8410-2 ####[facility] LABORATORYCLIA [id number] [address] Nucleated RBC (Bld) [#/Vol] 10*3/uL Normal <0.01 [facility] Comment on above: Order Comment: Speci men Type: BLOOD SPECIMENOrdering Facility: [facility] Address: [address] [place] [address] Performed By: #### 5 8410-2 ####[facility] LABORATORYCLIA [id number] [address] Platelet mean volume (Bld) [Entitic vol] 9.7 fL Normal 9.0-12.7 [facility] Comment on above: Order Comment: Speci men Type: BLOOD SPECIMENOrdering Facility: [facility] Address: [address] [place] [address] Performed By: #### 5 8410-2 ####[facility] LABORATORYCLIA [id number] [address] [place] Platelets (Bld) [#/Vol] 315 10*3/uL Normal 150-400 [facility] Comment on above: Order Comment: Speci men Type: BLOOD SPECIMENOrdering Facility: [facility] Address: [address] [place] [address] Performed By: #### 5 8410-2 ####[facility] LABORATORYCLIA [id number] [place] [address] [place] RBC (Bld) [#/Vol] 3.21 10*6/uL Low 4.20-6.00 [facility] Comment on above: Order Comment: Speci men Type: BLOOD SPECIMENOrdering Facility: [facility] Address: [address] [place] [address] Performed By: #### 5 8410-2 ####[facility] LABORATORYCLIA [id number] [address] [place] OF [facility] WBC (Bld) [#/Vol] 9.18 10*3/uL Normal 3.70-11.00 [facility] Comment on above: Order Comment: Speci men Type: BLOOD SPECIMENOrdering Facility: [facility] Address: [address] [place] [address] Performed By: #### 5 8410-2 ####[facility]ORATORYCLIA [id number] [address] [place] CONSULT PROGon 07-11-2021 CONSULT PROG Normal [facility] CT BRAIN WO IVCONon 07-12-[address] BRAIN WO IVCON Normal [facility] Magnesium SerPl-mCncon 07-11 Magnesium [Mass/Vol] 2.1 mg/dL Normal 1.7-2.3 [facility] Comment on above: Order Comment: Speci men Type: BLOOD SPECIMENOrdering Facility: [facility] Address: [address] [place] [address] Performed By: #### 1 9123-9, 2777-1 ####[facility]ORATORYCLIA [id number] [address] NURSING PROGon 07-11-2021 NURSING PROG Normal [facility] NURSING PROG Normal [facility] Phosphate SerPl-mCncon 07-11 Phosphate [Mass/Vol] 3.4 mg/dL Normal 2.7-4.8 [facility] Comment on above: Order Comment: Speci men Type: BLOOD SPECIMENOrdering Facility: [facility] Address: [address] [place] [address] Performed By: #### 1 9123-9, 2777-1 ####[facility] LABORATORYCLIA [id number] [address] THERAPY NTon 07-11-2021 THERAPY NT Normal [facility] Vancomycin random [Mass/Vol] on 07-11-2021 Vancomycin [Mass/Vol] 28.6 ug/mL High 10.0-20.0 [facility] Comment on above: Order Comment: Speci men Type: BLOOD SPECIMENOrdering Facility: [facility] Address: [address] [place] [address] Result Comment: Refe rence ranges and high/low indicator flags are provided as general guidelines only. The treating physician must determine appropriate target levels/dosing based on the specific clinical situation. Performed By: #### 4 091-5 ####[facility] LABORATORYCLIA [id number] [address] aPTT PPPon 07-11-2021 aPTT Coag (PPP) [Time] 62.0 s High 23.0-32.4 [facility] Comment on above: Order Comment: Speci men Type: BLOOD SPECIMENOrdering Facility: [facility] Address: [address] [place] [address] Performed By: #### 1 4979-9 ####[facility]ORATORYCLIA [id number] [address] aPTT Coag (PPP) [Time] 52.7 s High 23.0-32.4 [facility] Comment on above: Order Comment: Speci men Type: BLOOD SPECIMENOrdering Facility: [facility] Address: [address] [place] [address] Performed By: #### 1 4979-9 ####[facility]ORATORYCLIA [id number] [address] aPTT Coag (PPP) [Time] 29.9 s Normal 23.0-32.4 [facility] Comment on above: Order Comment: Speci men Type: BLOOD SPECIMENOrdering Facility: [facility] Address: [address] [place] [address] Performed By: #### 1 4979-9 ####[facility] LABORATORYCLIA [id number] [address] [place] Basic metabolic 2000 panelon 07-10-2021 Anion gap [Moles/Vol] 14 mmol/L Normal 9-18 [facility] Comment on above: Order Comment: Speci men Type: BLOOD SPECIMENOrdering Facility: [facility] Address: [address] [place] [address] Performed By: #### 1 9123-9, 2777-1, 08340-2 ####[facility]ITALCL[facility] [id number] [place] [address] [place] Calcium [Mass/Vol] 8.5 mg/dL Normal 8.5-10.2 [facility] Comment on above: Order Comment: Speci men Type: BLOOD SPECIMENOrdering Facility: [facility] Address: [address] [place] [address] Performed By: #### 1 9123-9, 2777-1, 57805-6 ####[facility] LABORATORYCLIA [id number] [place] [address] [place] Chloride [Moles/Vol] 100 mmol/L Normal 97-105 [facility] Comment on above: Order Comment: Speci men Type: BLOOD SPECIMENOrdering Facility: [facility] Address: [address] [place] [address] Performed By: #### 1 9123-9, 2776-05, ####[facility] [id number] [place] [address] [place] CO2 [Moles/Vol] 27 mmol/L Normal 22-30 [facility] Comment on above: Order Comment: Speci men Type: BLOOD SPECIMENOrdering Facility: [facility] Address: [address] [place] [address] Performed By: #### 1 9123-9, 2776-05, ####[facility]ITALCL[facility] [id number] [address] STATES OF [facility] Creatinine [Mass/Vol] 0.66 mg/dL Low 0.73-1.22 [facility] Comment on above: Order Comment: Speci men Type: BLOOD SPECIMENOrdering Facility: [facility] Address: [address] [place] [address] Performed By: #### 1 9123-9, 2776-05, ####[facility]ITALIA [id number] [address] ESTIMATED GLOMERULAR FILTRATION RATE 102 mL/min/1.73m??? Normal >=60 [facility] Comment on above: Order Comment: Speci men Type: BLOOD SPECIMENOrdering Facility: [facility] Address: [address] [place] [address] Result Comment: Luzmaria mated Glomerular Filtration Rate [...] GFR. Performed By: #### 1 9123-9, 27711-04, ####[facility] LABORATORYCLIA [id number] [place] [id number] [place] [facility] Glucose [Mass/Vol] 93 mg/dL Normal 74-99 [facility] Comment on above: Order Comment: Speci men Type: BLOOD SPECIMENOrdering Facility: [facility] Address: [address] [place], [place] [address] Result Comment: The [place] [employer] (ADA) provides guidance for cutoff [...] Standards of Medical Care in Diabetes 2016, [place] [employer]. Diabetes Care. 2016.39(Suppl 1). Performed By: #### 1 9123-9, 2777-, 67685-2 ####[facility]ORATORYCLIA [id number] [place] [address] [place] Potassium [Moles/Vol] 3.5 mmol/L Low 3.7-5.1 [facility] Comment on above: Order Comment: Speci men Type: BLOOD SPECIMENOrdering Facility: [facility] Address: [address] [place], [place] [address] Performed By: #### 1 9123-9, 2777-, 07707-8 ####[facility]ORATORYCLIA [id number] [place] [address] [place] Sodium [Moles/Vol] 141 mmol/L Normal 136-144 [facility] Comment on above: Order Comment: Speci men Type: BLOOD SPECIMENOrdering Facility: [facility] Address: [address] [place], [place] [address] Performed By: #### 1 9123-9, 2777, 33416-9 ####[facility]ORATORYCLIA [id number] [place] [address] [place] Urea nitrogen [Mass/Vol] 11 mg/dL Normal 9-24 [facility] Comment on above: Order Comment: Speci men Type: BLOOD SPECIMENOrdering Facility: [facility] Address: [address] [place] [address] Performed By: #### 1 9123-9, 2777-1, 23682-2 ####[facility] LABORATORYCLIA [id number] [address] CBC panel Auto (Bld)on 07-10 Erythrocyte distribution width (RBC) [Ratio] 16.2 % High 11.5-15.0 [facility] Comment on above: Order Comment: Speci men Type: BLOOD SPECIMENOrdering Facility: [facility] Address: [address] [place] [address] Performed By: #### 5 8410-2 ####[facility] LABORATORYCLIA [id number] [address] Hematocrit (Bld) [Volume fraction] 30.6 % Low 39.0-51.0 [facility] Comment on above: Order Comment: Speci men Type: BLOOD SPECIMENOrdering Facility: [facility] Address: [address] [place] [address] Performed By: #### 5 8410-2 ####[facility] LABORATORYCLIA [id number] [address] Hemoglobin (Bld) [Mass/Vol] 9.6 g/dL Low 13.0-17.0 [facility] Comment on above: Order Comment: Speci men Type: BLOOD SPECIMENOrdering Facility: [facility] Address: [address] [place] [address] Performed By: #### 5 8410-2 ####[facility]ORATORYCLIA [id number] [address] STATES [facility] MCH (RBC) [Entitic mass] 28.3 pg Normal 26.0-34.0 [facility] Comment on above: Order Comment: Speci men Type: BLOOD SPECIMENOrdering Facility: [facility] Address: [address] [place] [address] Performed By: #### 5 8410-2 ####[facility]ORATORYCLIA [id number] [address] STATES OF [facility] MCHC (RBC) [Mass/Vol] 31.4 g/dL Normal 30.5-36.0 [facility] Comment on above: Order Comment: Speci men Type: BLOOD SPECIMENOrdering Facility: [facility] Address: [address] [place] [address] Performed By: #### 5 8410-2 ####[facility]ORATORYCLIA [id number] [address] [place] MCV (RBC) [Entitic vol] 90.3 fL Normal 80.0-100.0 [facility] Comment on above: Order Comment: Speci men Type: BLOOD SPECIMENOrdering Facility: [facility] Address: [address] [place] [address] Performed By: #### 5 8410-2 ####[facility]ORATORYCLIA [id number] [address] STATES [facility] Nucleated RBC (Bld) [#/Vol] 10*3/uL Normal <0.01 [facility] Comment on above: Order Comment: Speci men Type: BLOOD SPECIMENOrdering Facility: [facility] Address: [address] [place] [address] Performed By: #### 5 8410-2 ####[facility]ORATORYCLIA [id number] [address] [place] Platelet mean volume (Bld) [Entitic vol] 9.7 fL Normal 9.0-12.7 [facility] Comment on above: Order Comment: Speci men Type: BLOOD SPECIMENOrdering Facility: [facility] Address: [address] [place] [address] Performed By: #### 5 8410-2 ####[facility]ORATORYCLIA [id number] [address] [place] Platelets (Bld) [#/Vol] 306 10*3/uL Normal 150-400 [facility] Comment on above: Order Comment: Speci men Type: BLOOD SPECIMENOrdering Facility: [facility] Address: [address] [place] [address] Performed By: #### 5 8410-2 ####[facility]ORATORYCLIA [id number] [address] RBC (Bld) [#/Vol] 3.39 10*6/uL Low 4.20-6.00 [facility] Comment on above: Order Comment: Speci men Type: BLOOD SPECIMENOrdering Facility: [facility] Address: [address] [place] [address] Performed By: #### 5 8410-2 ####[facility]ORATORYCLIA [id number] [address] WBC (Bld) [#/Vol] 9.81 10*3/uL Normal 3.70-11.00 [facility] Comment on above: Order Comment: Speci men Type: BLOOD SPECIMENOrdering Facility: [facility] Address: [address] [place] [address] Performed By: #### 5 8410-2 ####[facility]ORATORYCLIA [id number] [address] [place] CONSULTon 07-10-2021 CONSULT Normal [facility] CONSULT Normal [facility] Magnesium SerPl-mCncon 07-10 Magnesium [Mass/Vol] 1.9 mg/dL Normal 1.7-2.3 [facility] Comment on above: Order Comment: Speci men Type: BLOOD SPECIMENOrdering Facility: [facility] Address: [address] [place] [address] Performed By: #### 1 9123-9, 2777-1, 66577-0 ####[facility]ORATORYCLIA [id number] [address] NURSING PROGon 07-10-2021 NURSING PROG Normal [facility] NURSING PROG Normal [facility] NUTRITIONon 07-10-2021 NUTRITION Normal [facility] Phosphate SerPl-mCncon 07-10 Phosphate [Mass/Vol] 3.6 mg/dL Normal 2.7-4.8 [facility] Comment on above: Order Comment: Speci men Type: BLOOD SPECIMENOrdering Facility: [facility] Address: [address] [place] [address] Performed By: #### 1 9123-9, 2777-1, 45367-7 ####[facility]ORATORYCLIA [id number] [address] [place] US DVT LOWER BILon US DVT LOWER RAINER Normal [facility] aPTT PPPon 07-10-2021 aPTT Coag (PPP) [Time] 28.8 s Normal 23.0-32.4 [facility] Comment on above: Order Comment: Speci men Type: BLOOD SPECIMENOrdering Facility: [facility] Address: [address] [place] [address] Performed By: #### 1 4979-9 ####[facility] LABORATORYCLIA [id number] [address] aPTT Coag (PPP) [Time] 28.4 s Normal 23.0-32.4 [facility] Comment on above: Order Comment: Speci men Type: BLOOD SPECIMENOrdering Facility: [facility] Address: [address] [place] [address] Performed By: #### 1 4979-9 ####[facility]ORATORYCLIA [id number] [address] [place] ALLIED HEALTHon 07-09-2021 ALLIED HEALTH Normal [facility] Basic metabolic 2000 panelon 07-09-2021 Anion gap [Moles/Vol] 9 mmol/L Normal 9-18 [facility] Comment on above: Order Comment: Speci men Type: BLOOD SPECIMENOrdering Facility: [facility] Address: [address] [place] [address] Performed By: #### 1 9123-9, 2777-1, 71042-3 ####[facility]ATORYCLIA [id number] [place] [address] [place] [facility] Calcium [Mass/Vol] 8.3 mg/dL Low 8.5-10.2 [facility] Comment on above: Order Comment: Speci men Type: BLOOD SPECIMENOrdering Facility: [facility] Address: [address] [place] [address] Performed By: #### 1 9123-9, 2777-1, 68755-9 ####[facility]ORATORYCLIA [id number] [place] [address] [place] Chloride [Moles/Vol] 100 mmol/L Normal 97-105 [facility] Comment on above: Order Comment: Speci men Type: BLOOD SPECIMENOrdering Facility: [facility] Address: [address] [place] [address] Performed By: #### 1 9123-9, 27711-04, 33156-5 ####[facility]ATORYCLIA [id number] [address] STATES OF [facility] CO2 [Moles/Vol] 29 mmol/L Normal 22-30 [facility] Comment on above: Order Comment: Speci men Type: BLOOD SPECIMENOrdering Facility: [facility] Address: [address] [place] [address] Performed By: #### 1 9123-9, 27711-04, 31852-3 ####[facility]ORATORYCLIA [id number] [address] [place] Creatinine [Mass/Vol] 0.61 mg/dL Low 0.73-1.22 [facility] Comment on above: Order Comment: Speci men Type: BLOOD SPECIMENOrdering Facility: [facility] Address: [address] [place] [address] Performed By: #### 1 9123-9, 27711-04, 24255-4 ####[facility]ORATORYCLIA [id number] [address] [place] ESTIMATED GLOMERULAR FILTRATION RATE 104 mL/min/1.73m??? Normal >=60 [facility] Comment on above: Order Comment: Shira feldman Type: BLOOD SPECIMENOrdering Facility: [facility] Address: [address] [place] [address] Result Comment: Luzmaria mated Glomerular Filtration Rate [...] GFR. Performed By: #### 1 9123-9, 2777-1, 59002-8 ####[facility]ORATORYCLIA [id number] [place] [address] [place] Glucose [Mass/Vol] 106 mg/dL High 74-99 [facility] Comment on above: Order Comment: Shira feldman Type: BLOOD SPECIMENOrdering Facility: [facility] Address: [address] [place] [address] Result Comment: The [place] Diabetes [employer] (ADA) provides guidance for cutoff [...] Standards of Medical Care in Diabetes 2016, [place] [employer]. Diabetes Care. 2016.39(Suppl 1). Performed By: #### 1 9123-9, 2777-1, 04131-1 ####[facility]ORATORYCLIA [id number] [place] [address] [place] Potassium [Moles/Vol] 3.6 mmol/L Low 3.7-5.1 [facility] Comment on above: Order Comment: Shira feldman Type: BLOOD SPECIMENOrdering Facility: [facility] Address: [address] [place] [address] Performed By: #### 1 9123-9, 2777-1, 19200-0 ####[facility]ORATORYCLIA [id number] [address] Sodium [Moles/Vol] 138 mmol/L Normal 136-144 [facility] Comment on above: Order Comment: Speci men Type: BLOOD SPECIMENOrdering Facility: [facility] Address: [address] [place] [address] Performed By: #### 1 9123-9, 2777-, 49803-1 ####[facility]ORATORYCLIA [id number] [address] STATES [facility] Urea nitrogen [Mass/Vol] 12 mg/dL Normal 9-24 [facility] Comment on above: Order Comment: Speci men Type: BLOOD SPECIMENOrdering Facility: [facility] Address: [address] [place] [address] Performed By: #### 1 9123-9, 2777, 44278-7 ####[facility]ORATORYCLIA [id number] [address] STATES OF [facility] CBC panel Auto (Bld)on 07-09 Erythrocyte distribution width (RBC) [Ratio] 16.2 % High 11.5-15.0 [facility] Comment on above: Order Comment: Speci men Type: BLOOD SPECIMENOrdering Facility: [facility] Address: [address] [place] [address] Performed By: #### 5 8410-2 ####[facility]ORATORYCLIA [id number] [address] Hematocrit (Bld) [Volume fraction] 29.0 % Low 39.0-51.0 [facility] Comment on above: Order Comment: Speci men Type: BLOOD SPECIMENOrdering Facility: [facility] Address: [address] [place] [address] Performed By: #### 5 8410-2 ####[facility]ORATORYCLIA [id number] [address] Hemoglobin (Bld) [Mass/Vol] 8.8 g/dL Low 13.0-17.0 [facility] Comment on above: Order Comment: Speci men Type: BLOOD SPECIMENOrdering Facility: [facility] Address: [address] [place] [address] Performed By: #### 5 8410-2 ####[facility]ORATORYCLIA [id number] [address] MCH (RBC) [Entitic mass] 27.0 pg Normal 26.0-34.0 [facility] Comment on above: Order Comment: Speci men Type: BLOOD SPECIMENOrdering Facility: [facility] Address: [address] [place] [address] Performed By: #### 5 8410-2 ####[facility]ORATORYCLIA [id number] [address] MCHC (RBC) [Mass/Vol] 30.3 g/dL Low 30.5-36.0 [facility] Comment on above: Order Comment: Speci men Type: BLOOD SPECIMENOrdering Facility: [facility] Address: [address] [place] [address] Performed By: #### 5 8410-2 ####[facility]ORATORYCLIA [id number] [address] MCV (RBC) [Entitic vol] 89.0 fL Normal 80.0-100.0 [facility] Comment on above: Order Comment: Speci men Type: BLOOD SPECIMENOrdering Facility: [facility] Address: [address] [place] [address] Performed By: #### 5 8410-2 ####[facility]ORATORYCLIA [id number] [address] Nucleated RBC (Bld) [#/Vol] 10*3/uL Normal <0.01 [facility] Comment on above: Order Comment: Speci men Type: BLOOD SPECIMENOrdering Facility: [facility] Address: [address] [place] [address] Performed By: #### 5 8410-2 ####[facility]ORATORYCLIA [id number] [address] STATES [facility] Platelet mean volume (Bld) [Entitic vol] 9.8 fL Normal 9.0-12.7 [facility] Comment on above: Order Comment: Speci men Type: BLOOD SPECIMENOrdering Facility: [facility] Address: [address] [place] [address] Performed By: #### 5 8410-2 ####[facility]ORATORYCLIA [id number] [address] [place] Platelets (Bld) [#/Vol] 281 10*3/uL Normal 150-400 [facility] Comment on above: Order Comment: Speci men Type: BLOOD SPECIMENOrdering Facility: [facility] Address: [address] [place] [address] Performed By: #### 5 8410-2 ####[facility]ORATORYCLIA [id number] [address] [place] RBC (Bld) [#/Vol] 3.26 10*6/uL Low 4.20-6.00 [facility] Comment on above: Order Comment: Speci men Type: BLOOD SPECIMENOrdering Facility: [facility] Address: [address] [place] [address] Performed By: #### 5 8410-2 ####[facility]ATORYCLIA [id number] [address] [place] WBC (Bld) [#/Vol] 9.12 10*3/uL Normal 3.70-11.00 [facility] Comment on above: Order Comment: Speci men Type: BLOOD SPECIMENOrdering Facility: [facility] Address: [address] [place] [address] Performed By: #### 5 8410-2 ####[facility]ORATORYCLIA [id number] [address] CONSULT PROGon 07-09-2021 CONSULT PROG Normal [facility] CONSULT PROG Normal [facility] HISTORY PHYSICALon HISTORY PHYSICAL Normal [facility] Magnesium SerPl-mCncon 07-09 Magnesium [Mass/Vol] 1.9 mg/dL Normal 1.7-2.3 [facility] Comment on above: Order Comment: Speci men Type: BLOOD SPECIMENOrdering Facility: [facility] Address: [address] [place] [address] Performed By: #### 1 9123-9, 2777-1, 13344-3 ####[facility]ATORYCLIA [id number] [address] Phosphate SerPl-mCncon 07-09 Phosphate [Mass/Vol] 3.6 mg/dL Normal 2.7-4.8 [facility] Comment on above: Order Comment: Speci men Type: BLOOD SPECIMENOrdering Facility: [facility] Address: [address] [place] [address] Performed By: #### 1 9123-9, 2777-1, 62723-6 ####[facility]ORATORYCLIA [id number] [address] THERAPY NTon 07-09-2021 THERAPY NT Normal [facility] XR ABDOMEN 1V SUPINEon 07-09 XR ABDOMEN 1V SUPINE Normal [facility] ALLIED HEALTHon 07-08-2021 ALLIED HEALTH Normal [facility] ALLIED HEALTH Normal [facility] ALLIED HEALTH Normal [facility] ANES PRE-OPon 07-08-2021 ANES PRE-OP Normal [facility] BRIEF OP NOTon 07-08-2021 BRIEF OP NOT Normal [facility] Bacteria Bld Culton 07-09-19 22 Bacteria identified Cx Nom (Bld) CULTURE, BLOOD: No growth 5 days Normal [facility] Comment on above: Performed By: #### 6 00-7 ####[facility]ORATORYCLIA [id number] [address] [place] Bacteria identified Cx Nom (Bld) CULTURE, BLOOD: No growth 5 days [facility] Comment on above: Performed By: #### 6 00-7 ####[facility]ORATORYCLIA [id number] [address] Bacteria CSF Culton 07-09-19 22 Bacteria identified Cx Nom (CSF) CULTURE, CSF: No growth 14 days GRAM STAIN: No organisms seen No Polymorphonuclear Leukocytes Few Red Blood Cells Gram stain performed on cytospun specimen. [facility] Comment on above: Performed By: #### 6 06-4 ####[facility]ORATORYCLIA [id number] [address] Bacteria Ur Culton 2 Bacteria identified Cx Nom (U) ORGANISM ID: 1 10,000 -<50,000 CFU/ml Proteus species Insignificant colony count. No further workup. ORGANISM ID: 2 <10,000 CFU/ml Normal urogenital chris Normal [facility] Comment on above: Performed By: #### 6 30-4 ####[facility]ORATORYCLIA [id number] [address] Bacteria Wnd Culton 07-09-19 22 Bacteria identified Cx Nom (Wound) ORGANISM ID: 1 Coagulase negative staphylococcus Growth in Enrichment Broth Only No susceptibility testing done. Call lab within 72 hours to initiate work-up if clinically indicated. GRAM STAIN: Account credited. Not performed on this specimen type. [facility] Comment on above: Performed By: #### 6 462-6 ####[facility]ATORYCLIA [id number] [address] Bacteria identified Cx Nom (Wound) ORGANISM ID: 1 Rare Coagulase negative staphylococcus No susceptibility testing done. Call lab within 72 hours to initiate work-up if clinically indicated. GRAM STAIN: Account credited. Not performed on this specimen type. [facility] Comment on above: Performed By: #### 6 462-6 ####[facility] LABORATORYCLIA [id number] [place] [address] [place] Bacteria identified Cx Nom (Wound) CULTURE, INTRAOPERATIVE HARDWARE: No growth 14 days GRAM STAIN: Account credited. Not performed on this specimen type. Normal [facility] Comment on above: Performed By: #### 6 462-6 ####[facility]ORATORYCLIA [id number] [place] [address] [place] Basic metabolic 2000 panelon 07-08-2021 Anion gap [Moles/Vol] 9 mmol/L Normal 9-18 [facility] Comment on above: Order Comment: Speci men Type: BLOOD SPECIMENOrdering Facility: [facility] Address: [address] [place] [address] Performed By: #### 2 4321-2 ####[facility]ORATORYCLIA [id number] [place] [address] [place] Calcium [Mass/Vol] 8.5 mg/dL Normal 8.5-10.2 [facility] Comment on above: Order Comment: Speci men Type: BLOOD SPECIMENOrdering Facility: [facility] Address: [address] [place] [address] Performed By: #### 2 4321-2 ####[facility]ORATORYCLIA [id number] [address] [place] Chloride [Moles/Vol] 98 mmol/L Normal 97-105 [facility] Comment on above: Order Comment: Speci men Type: BLOOD SPECIMENOrdering Facility: [facility] Address: [address] [place] [address] Performed By: #### 2 4321-2 ####[facility]ORATORYCLIA [id number] [place] [address] [place] CO2 [Moles/Vol] 31 mmol/L High 22-30 [facility] Comment on above: Order Comment: Speci men Type: BLOOD SPECIMENOrdering Facility: [facility] Address: [address] [place] [address] Performed By: #### 2 4321-2 ####[facility] LABORATORYCLIA [id number] [address] OF [facility] Creatinine [Mass/Vol] 0.64 mg/dL Low 0.73-1.22 [facility] Comment on above: Order Comment: Johncara feldman Type: BLOOD SPECIMENOrdering Facility: [facility] Address: [address] [address] Performed By: #### 2 4321-2 ####[facility]ORATORYCLIA [id number] [address] ESTIMATED GLOMERULAR FILTRATION RATE 102 mL/min/1.73m??? Normal >=60 [facility] Comment on above: Order Comment: Shira francia Type: BLOOD SPECIMENOrdering Facility: [facility] Address: [address] [address] Result Comment: Luzmaria mated Glomerular Filtration Rate [...] #### 2 4321-2 ####[facility]ORATORYCLIA [id number] [address] STATES OF [facility] Glucose [Mass/Vol] 114 mg/dL High 74-99 [facility] Comment on above: Order Comment: Johncara feldman Type: BLOOD SPECIMENOrdering Facility: [facility] Address: [address] [address] Result Comment: The [place] [employer] (ADA) provides guidance for cutoff [...] Standards of Medical Care in Diabetes 2016, [place] [employer]. Diabetes Care. 2016.39(Suppl 1). Performed By: #### 2 4321-2 ####[facility]ORATORYCLIA [id number] [address] STATES OF [facility] Potassium [Moles/Vol] 3.4 mmol/L Low 3.7-5.1 [facility] [facility] Comment on above: Order Comment: Speci men Type: BLOOD SPECIMENOrdering Facility: [facility] Address: [address] [place] [address] Performed By: #### 2 4321-2 ####[facility] LABORATORYCLIA [id number] [address] Sodium [Moles/Vol] 138 mmol/L Normal 136-144 [facility] Comment on above: Order Comment: Speci men Type: BLOOD SPECIMENOrdering Facility: [facility] Address: [address] [place] [address] Performed By: #### 2 4321-2 ####[facility] LABORATORYCLIA [id number] [address] Urea nitrogen [Mass/Vol] 14 mg/dL Normal 9-24 [facility] Comment on above: Order Comment: Speci men Type: BLOOD SPECIMENOrdering Facility: [facility] Address: [address] [place] [address] Performed By: #### 2 4321-2 ####[facility] LABORATORYCLIA [id number] [address] [place] CBC W Auto Differential pane l (Bld)on 07-08-2021 Basophils (Bld) [#/Vol] 0.05 10*3/uL Normal <0.11 [facility] Comment on above: Order Comment: Speci men Type: BLOOD SPECIMENOrdering Facility: [facility] Address: [address] [place] [address] Performed By: #### 5 7021-8 ####[facility] LABORATORYCLIA [id number] [address] STATES [facility] Basophils/100 WBC (Bld) 0.4 % Normal [facility] Comment on above: Order Comment: Speci men Type: BLOOD SPECIMENOrdering Facility: [facility] Address: [address] [place] [address] Performed By: #### 5 7021-8 ####[facility] LABORATORYCLIA [id number] [address] Differential cell count method Nom (Bld) Auto Normal [facility] Comment on above: Order Comment: Speci men Type: BLOOD SPECIMENOrdering Facility: [facility] Address: [address] [place] [address] Performed By: #### 5 7021-8 ####[facility] LABORATORYCLIA [id number] [address] [place] Eosinophils (Bld) [#/Vol] 0.68 10*3/uL High <0.46 [facility] Comment on above: Order Comment: Speci men Type: BLOOD SPECIMENOrdering Facility: [facility] Address: [address] [place] [address] Performed By: #### 5 7021-8 ####[facility]ORATORYCLIA [id number] [address] Eosinophils/100 WBC (Bld) 5.4 % Normal [facility] Comment on above: Order Comment: Speci men Type: BLOOD SPECIMENOrdering Facility: [facility] Address: [address] [place] [address] Performed By: #### 5 7021-8 ####[facility]ORATORYCLIA [id number] [address] [place] Erythrocyte distribution width (RBC) [Ratio] 16.3 % High 11.5-15.0 [facility] Comment on above: Order Comment: Speci men Type: BLOOD SPECIMENOrdering Facility: [facility] Address: [address] [place] [address] Performed By: #### 5 7021-8 ####[facility]ATORYCLIA [id number] [address] Hematocrit (Bld) [Volume fraction] 35.7 % Low 39.0-51.0 [facility] Comment on above: Order Comment: Speci men Type: BLOOD SPECIMENOrdering Facility: [facility] Address: [address] [place] [address] Performed By: #### 5 7021-8 ####[facility] LABORATORYCLIA [id number] [address] Hemoglobin (Bld) [Mass/Vol] 10.8 g/dL Low 13.0-17.0 [facility] Comment on above: Order Comment: Speci men Type: BLOOD SPECIMENOrdering Facility: [facility] Address: [address] [place] [address] Performed By: #### 5 7021-8 ####[facility]ORATORYCLIA [id number] [address] IMMATURE GRAN % 0.4 % Normal [facility] Comment on above: Order Comment: Speci men Type: BLOOD SPECIMENOrdering Facility: [facility] Address: [address] [place] [address] Performed By: #### 5 7021-8 ####[facility] LABORATORYCLIA [id number] [address] IMMATURE GRAN ABS 0.05 k/uL Normal <0.10 [facility] Comment on above: Order Comment: Speci men Type: BLOOD SPECIMENOrdering Facility: [facility] Address: [address] [place] [address] Performed By: #### 5 7021-8 ####[facility]ORATORYCLIA [id number] [address] Lymphocytes (Bld) [#/Vol] 1.85 10*3/uL Normal 1.00-4.00 [facility] Comment on above: Order Comment: Speci men Type: BLOOD SPECIMENOrdering Facility: [facility] Address: [address] [place] [address] Performed By: #### 5 7021-8 ####[facility] LABORATORYCLIA [id number] [address] Lymphocytes/100 WBC (Bld) 14.7 % Normal [facility] Comment on above: Order Comment: Speci men Type: BLOOD SPECIMENOrdering Facility: [facility] Address: [address] [place] [address] Performed By: #### 5 7021-8 ####[facility]ORATORYCLIA [id number] [address] MCH (RBC) [Entitic mass] 27.1 pg Normal 26.0-34.0 [facility] Comment on above: Order Comment: Speci men Type: BLOOD SPECIMENOrdering Facility: [facility] Address: [address] [place] [address] Performed By: #### 5 7021-8 ####[facility] LABORATORYCLIA [id number] [address] MCHC (RBC) [Mass/Vol] 30.3 g/dL Low 30.5-36.0 [facility] Comment on above: Order Comment: Speci men Type: BLOOD SPECIMENOrdering Facility: [facility] Address: [address] [place] [address] Performed By: #### 5 7021-8 ####[facility]ORATORYCLIA [id number] [address] MCV (RBC) [Entitic vol] 89.7 fL Normal 80.0-100.0 [facility] Comment on above: Order Comment: Speci men Type: BLOOD SPECIMENOrdering Facility: [facility] Address: [address] [place] [address] Performed By: #### 5 7021-8 ####[facility] LABORATORYCLIA [id number] [address] OF [facility] Monocytes (Bld) [#/Vol] 0.87 10*3/uL High <0.87 [facility] Comment on above: Order Comment: Speci men Type: BLOOD SPECIMENOrdering Facility: [facility] Address: [address] [place] [address] Performed By: #### 5 7021-8 ####[facility] LABORATORYCLIA [id number] [address] STATES [facility] Monocytes/100 WBC (Bld) 6.9 % Normal [facility] Comment on above: Order Comment: Speci men Type: BLOOD SPECIMENOrdering Facility: [facility] Address: [address] [place] [address] Performed By: #### 5 7021-8 ####[facility]ORATORYCLIA [id number] [address] [place] Neutrophils (Bld) [#/Vol] 9.05 10*3/uL High 1.45-7.50 [facility] Comment on above: Order Comment: Speci men Type: BLOOD SPECIMENOrdering Facility: [facility] Address: [address] [place] [address] Performed By: #### 5 7021-8 ####[facility]ORATORYCLIA [id number] [address] Neutrophils/100 WBC (Bld) 72.2 % Normal [facility] Comment on above: Order Comment: Speci men Type: BLOOD SPECIMENOrdering Facility: [facility] Address: [address] [place] [address] Performed By: #### 5 7021-8 ####[facility]ORATORYCLIA [id number] [address] [place] Nucleated RBC (Bld) [#/Vol] 10*3/uL Normal <0.01 [facility] Comment on above: Order Comment: Speci men Type: BLOOD SPECIMENOrdering Facility: [facility] Address: [address] [place] [address] Performed By: #### 5 7021-8 ####[facility] LABORATORYCLIA [id number] [address] [place] Nucleated RBC/100 WBC (Bld) [Ratio] 0.0 /100 WBC Normal [facility] Comment on above: Order Comment: Speci men Type: BLOOD SPECIMENOrdering Facility: [facility] Address: [address] [place] [address] Performed By: #### 5 7021-8 ####[facility] LABORATORYCLIA [id number] [place] [address] [place] Platelet mean volume (Bld) [Entitic vol] 9.9 fL Normal 9.0-12.7 [facility] Comment on above: Order Comment: Speci men Type: BLOOD SPECIMENOrdering Facility: [facility] Address: [address] [place] [address] Performed By: #### 5 7021-8 ####[facility]ORATORYCLIA [id number] [address] Platelets (Bld) [#/Vol] 335 10*3/uL Normal 150-400 [facility] Comment on above: Order Comment: Speci men Type: BLOOD SPECIMENOrdering Facility: [facility] Address: [address] [place] [address] Performed By: #### 5 7021-8 ####[facility]ORATORYCLIA [id number] [address] [place] RBC (Bld) [#/Vol] 3.98 10*6/uL Low 4.20-6.00 [facility] Comment on above: Order Comment: Speci men Type: BLOOD SPECIMENOrdering Facility: [facility] Address: [address] [place] [address] Performed By: #### 5 7021-8 ####[facility]ORATORYCLIA [id number] [address] [place] WBC (Bld) [#/Vol] 12.55 10*3/uL High 3.70-11.00 [facility] Comment on above: Order Comment: Speci men Type: BLOOD SPECIMENOrdering Facility: [facility] Address: [address] [place] [address] Performed By: #### 5 7021-8 ####[facility]ORATORYCLIA [id number] [address] OF [facility] CK CREATINE KINASEon 022 CK [Catalytic activity/Vol] 72 U/L Normal 51-298 [facility] Comment on above: Order Comment: Speci men Type: BLOOD SPECIMENOrdering Facility: [facility] Address: [address] [place] [address] Performed By: #### C K, 74546-8 ####[facility]ORATORYCLIA [id number] [address] [place] CONSULT PROGon 07-08-2021 CONSULT PROG Normal [facility] CONSULT PROG Normal [facility] CSF MANUAL DIFFon 07-08-2021 DIF TTL, CSF 3 cells counted Normal [facility] Comment on above: Order Comment: Speci men Type: CEREBROSPINAL FLUIDOrdering Facility: [facility] Address: [address] [place] [address] Performed By: #### 3 4563-7, [id number] ####[facility]ORATORYCLIA [id number] [place] [address] [place] LYMPH%, CSF 33 % Low 50-90 [facility] Comment on above: Order Comment: Speci men Type: CEREBROSPINAL FLUIDOrdering Facility: [facility] Address: [address] [place] [address] Performed By: #### 3 4563-7, [id number] ####[facility]ORATORYCLIA [id number] [place] [address] [place] MONO%, CSF 67 % High 10-50 [facility] Comment on above: Order Comment: Speci men Type: CEREBROSPINAL FLUIDOrdering Facility: [facility] Address: [address] [place] [address] Performed By: #### 3 4563-7, [id number] ####[facility]ORATORYCLIA [id number] [address] [place] CT ABD/PEL W IVCONon 022 CT ABD/PEL W IVCON Normal [facility] CT BRAIN WO IVCONon 07-09-[address] BRAIN WO IVCON Normal [facility] CT BRAIN WO IVCON Normal [facility] CT CHEST W IVCON PEon 2021 CT CHEST W IVCON PE Normal [facility] Cell count panel (CSF)on Clarity (CSF) Clear Normal Clear [facility] Comment on above: Order Comment: Speci men Type: CEREBROSPINAL FLUIDOrdering Facility: [facility] Address: [address] [place] [address] Performed By: #### 3 4563-7, [id number] ####[facility]ATORYCLIA [id number] [address] [place] Clarity (Unsp spec) Clear Normal Clear [facility] Comment on above: Order Comment: Speci men Type: CEREBROSPINAL FLUIDOrdering Facility: [facility] Address: [address] [place] [address] Performed By: #### 3 4563-7, [id number] ####[facility]ORATORYCLIA [id number] [address] OF [facility] Color (CSF) Colorless Normal Colorless [facility] Comment on above: Order Comment: Speci men Type: CEREBROSPINAL FLUIDOrdering Facility: [facility] Address: [address] [place] [address] Performed By: #### 3 4563-7, [id number] ####[facility]ORATORYCLIA [id number] [address] [place] Color (Spun CSF) Colorless Normal Colorless [facility] Comment on above: Order Comment: Speci men Type: CEREBROSPINAL FLUIDOrdering Facility: [facility] Address: [address] [place] [address] Performed By: #### 3 4563-7, [id number] ####[facility]ORATORYCLIA [id number] [address] [place] CSF TUBE [employer] Normal [facility] Comment on above: Order Comment: Speci men Type: CEREBROSPINAL FLUIDOrdering Facility: [facility] Address: [address] [place] [address] Performed By: #### 3 4563-7, [id number] ####[facility]ORATORYCLIA [id number] [address] RBC Manual cnt (CSF) [#/Vol] 94 cells/uL High 0-5 [facility] Comment on above: Order Comment: Speci men Type: CEREBROSPINAL FLUIDOrdering Facility: [facility] Address: [address] [place] [address] Performed By: #### 3 4563-7, [id number] ####[facility]ORATORYCLIA [id number] [address] WBC Manual cnt (CSF) [#/Vol] 1 cells/uL Normal 0-5 [facility] Comment on above: Order Comment: Speci men Type: CEREBROSPINAL FLUIDOrdering Facility: [facility] Address: [address] [place] [address] Performed By: #### 3 4563-7, [id number] ####[facility]ORATORYCLIA [id number] [address] Comprehensive metabolic 2000 panelon 07-08-2021 Albumin [Mass/Vol] 3.6 g/dL Low 3.9-4.9 [facility] Comment on above: Order Comment: Speci men Type: BLOOD SPECIMENOrdering Facility: [facility] Address: [address] [place] [address] Performed By: #### C K, 83361-3 ####[facility]ORATORYCLIA [id number] [address] ALP [Catalytic activity/Vol] 125 U/L High 38-113 [facility] Comment on above: Order Comment: Speci men Type: BLOOD SPECIMENOrdering Facility: [facility] Address: [address] [place] [address] Performed By: #### Eileen Valdivia, 94560-3 ####[facility]ORATORYCLIA [id number] [address] STATES OF [facility] ALT With P-5'-P [Catalytic activity/Vol] 24 U/L Normal 10-54 [facility] Comment on above: Order Comment: Speci men Type: BLOOD SPECIMENOrdering Facility: [facility] Address: [address] [place] [address] Performed By: #### Eileen Valdivia, 20562-5 ####[facility]ORATORYCLIA [id number] [address] STATES OF [facility] Anion gap [Moles/Vol] 16 mmol/L Normal 9-18 [facility] Comment on above: Order Comment: Speci men Type: BLOOD SPECIMENOrdering Facility: [facility] Address: [address] [place] [address] Performed By: #### Eileen Valdivia, 47109-7 ####[facility]ORATORYCLIA [id number] [address] STATES OF [facility] AST With P-5'-P [Catalytic activity/Vol] 21 U/L Normal 14-40 [facility] Comment on above: Order Comment: Speci men Type: BLOOD SPECIMENOrdering Facility: [facility] Address: [address] [place] [address] Performed By: #### Eileen Valdivia, 89521-5 ####[facility]ORATORYCLIA [id number] [address] [place] Bilirubin [Mass/Vol] 0.3 mg/dL Normal 0.2-1.3 [facility] Comment on above: Order Comment: Speci men Type: BLOOD SPECIMENOrdering Facility: [facility] Address: [address] [place] [address] Performed By: #### Eileen Valdivia, 72245-8 ####[facility]ORATORYCLIA [id number] [address] [place] Calcium [Mass/Vol] 8.9 mg/dL Normal 8.5-10.2 [facility] Comment on above: Order Comment: Speci men Type: BLOOD SPECIMENOrdering Facility: [facility] Address: [address] [place] [address] Performed By: #### Eileen Valdivia, 22726-7 ####[facility]ORATORYCLIA [id number] [place] [address] [place] Chloride [Moles/Vol] 96 mmol/L Low 97-105 [facility] Comment on above: Order Comment: Speci men Type: BLOOD SPECIMENOrdering Facility: [facility] Address: [address] [place] [address] Performed By: #### Eileen Valdivia, 58672-4 ####[facility]ATORYCLIA [id number] [address] [place] CO2 [Moles/Vol] 27 mmol/L Normal 22-30 [facility] Comment on above: Order Comment: Speci men Type: BLOOD SPECIMENOrdering Facility: [facility] Address: [address] [place] [address] Performed By: #### Eileen Valdivia, 30312-1 ####[facility]ATORYCLIA [id number] [address] [place] Creatinine [Mass/Vol] 0.68 mg/dL Low 0.73-1.22 [facility] Comment on above: Order Comment: Speci men Type: BLOOD SPECIMENOrdering Facility: [facility] Address: [address] [place] [address] Performed By: #### Eileen Valdivia, 30501-5 ####[facility]ORATORYCLIA [id number] [address] OF [facility] ESTIMATED GLOMERULAR FILTRATION RATE 101 mL/min/1.73m??? Normal >=60 [facility] Comment on above: Order Comment: Speci men Type: BLOOD SPECIMENOrdering Facility: [facility] Address: [address] [place] [address] Result Comment: Luzmaria mated Glomerular Filtration Rate [...] actual GFR. Performed By: #### Eileen Valdivia, 02157-4 ####[facility]ORATORYCLIA [id number] [place] [address] [place] Glucose [Mass/Vol] 130 mg/dL High 74-99 [facility] Comment on above: Order Comment: Shira feldman Type: BLOOD SPECIMENOrdering Facility: [facility] Address: [address] [place], [place] [address] Result Comment: The [place] Diabetes Association (ADA) provides guidance for cutoff [...] Standards of Medical Care in Diabetes 2016, [place] [employer]. Diabetes Care. 2016.39(Suppl 1). Performed By: #### Eileen Valdivia, 41405-1 ####[facility]ATORYCLIA [id number] [address] [place] Potassium [Moles/Vol] 3.9 mmol/L Normal 3.7-5.1 [facility] Comment on above: Order Comment: Shira feldman Type: BLOOD SPECIMENOrdering Facility: [facility] Address: [address] [place] [address] Performed By: #### Eileen Valdivia, 30989-6 ####[facility] LABORATORYCLIA [id number] [place] [id number] [place] Protein [Mass/Vol] 7.0 g/dL Normal 6.3-8.0 [facility] Comment on above: Order Comment: Speci men Type: BLOOD SPECIMENOrdering Facility: [facility] Address: [address] [place] [address] Performed By: #### C Skip, 21550-2 ####[facility]ORATORYCLIA [id number] [address] Sodium [Moles/Vol] 139 mmol/L Normal 136-144 [facility] Comment on above: Order Comment: Speci men Type: BLOOD SPECIMENOrdering Facility: [facility] Address: [address] [place] [address] Performed By: #### Eileen Valdivia, 45855-6 ####[facility]ORATORYCLIA [id number] [address] Urea nitrogen [Mass/Vol] 16 mg/dL Normal 9-24 [facility] Comment on above: Order Comment: Speci men Type: BLOOD SPECIMENOrdering Facility: [facility] Address: [address] [place] [address] Performed By: #### Eileen Valdivia, 53600-4 ####[facility]ATORYCLIA [id number] [address] ED NOTEon 07-08-2021 ED NOTE HNO ID: [id number] Author: Lenora James RN Service: Emergency Medicine Author Type: Registered Nurse Type: ED Notes Filed: 07/08/2021 5:03 PM Note Text: Pt to OR with surgical team Normal [facility] ED NOTE HNO ID: [id number] Author: Lenora James RN Service: Emergency Medicine Author Type: Registered Nurse Type: ED Notes Filed: 07/08/2021 4:50 PM Note Text: OR team to get pt Normal [facility] ED NOTE HNO ID: [id number] Author: Lenora James RN Service: Emergency Medicine Author Type: Registered Nurse Type: ED Notes Filed: 07/08/2021 4:50 PM Note Text: Normal [facility] ED NOTE HNO ID: [id number] Author: Lenora James RN Service: Emergency Medicine Author Type: Registered Nurse Type: ED Notes Filed: 07/08/2021 4:50 PM Note Text: Spoke with presurg; pt to go to OR now [facility] ED NOTE HNO ID: [id number] Author: Lenora James RN Service: Emergency Medicine Author Type: Registered Nurse Type: ED Notes Filed: 07/08/2021 4:12 PM Note Text: Neurosurgery at beside Normal [facility] ED NOTE HNO ID: [id number] Author: Lenora James RN Service: Emergency Medicine Author Type: Registered Nurse Type: ED Notes Filed: 07/08/2021 2:35 PM Note Text: respiratory aware of pt breathing treatments Normal [facility] ED NOTE HNO ID: [id number] Author: Lisa Woo RN Service: ? Author Type: Registered Nurse Type: ED Notes Filed: 07/08/2021 2:20 PM Note Text: Xray notified pt is ready. [facility] ED NOTE HNO ID: [id number] Author: Lenora James RN Service: Emergency Medicine Author Type: Registered Nurse Type: ED Notes Filed: 07/08/2021 12:14 PM Note Text: CT notified regarding imaging orders placed [facility] ED NOTE Normal [facility] ED PROV NOTEon 07-08-2021 ED PROV NOTE Normal [facility] Glucose CSF-mCncon 2 Glucose (CSF) [Mass/Vol] 88 mg/dL High 40-70 [facility] Comment on above: Order Comment: Speci men Type: CEREBROSPINAL FLUIDOrdering Facility: [facility] Address: [address] [place] [address] Result Comment: Lumb ar CSF glucose values of healthy patients are approximately 60% of the plasma values and must always be compared with a concurrently measured plasma value for adequate clinical interpretation.References: 1. Glucose HK (GLUC3) [package insert V 12.0 [place]]. [employer], [place], [place]. September 2015. 2. Michelle Moore, Loki, H. (2015). Chapter 7: Glucose and Lactate. F. Iirna rose al.(eds.), Cerebrospinal Fluid in Clinical Neurology. [place]: [employer]ishing [employer]. Performed By: #### 2 880-3, 2342-4 ####[facility]ORATORYCLIA [id number] [address] HIGH SENSITIVITY TROPONIN To n 07-08-2021 HIGH SENSITIVITY TAMIKO 27 ng/L High <12 [facility] Comment on above: Order Comment: Shira francia Type: BLOOD SPECIMENOrdering Facility: [facility] Address: [address] [place] [address] Result Comment: When assessing risk for acute [...] #### H STNT ####[facility]ORATORYCLIA [id number] [address] HIGH SENSITIVITY TAMIKO 36 ng/L High <12 [facility] Comment on above: Order Comment: Shira feldman Type: BLOOD SPECIMENOrdering Facility: [facility] Address: [address] [place] [address] Result Comment: When assessing risk for acute [...] #### H STNT ####[facility]ORATORYCLIA [id number] [address] [place] HISTORY PHYSICALon HISTORY PHYSICAL Normal [facility] NURSING PROGon 07-08-2021 NURSING PROG Normal [facility] OPERATIVE NOon 07-08-2021 OPERATIVE NO Normal [facility] Prot CSF-mCncon 07-08-2021 Protein (CSF) [Mass/Vol] 33 mg/dL Normal 15-45 [facility] Comment on above: Order Comment: Speci men Type: CEREBROSPINAL FLUIDOrdering Facility: [facility] Address: [address] [place] [address] Performed By: #### 2 880-3, 2342-4 ####[facility] LABORATORYCLIA [id number] [place] [address] [place] SARS-CoV-2 RNA Resp Ql MEGAN+p robeon 07-08-2021 SARS-CoV-2 (COVID-19) RNA MEGAN+probe Ql (Resp) COVID 19 RESULT: SARS-CoV-2 (Agent of COVID-19) Not Detected by RT-PCR or equivalent method. This test has been authorized by FDA under an Emergency Use Authorization (EUA). Normal [facility] Comment on above: Performed By: #### 9 4500-6 ####[facility] LABORATORYCLIA [id number] [address] [place] STAPH AUREUS PCRon 2 S. aureus and MRSA panel MEGAN+probe (Nose) Normal Negative [facility] Comment on above: Order Comment: Speci men Type: SWAB OF INTERNAL NOSEOrdering Facility: [facility] Address: [address] [place] [address] Result Comment: Nega tive for Staphylococcus aureus by PCR.Negative for MRSA by PCR Performed By: #### S APCR ####[facility] LABORATORYCLIA [id number] [place] [address] [place] Urinalysis complete panel (U )on 07-08-2021 Bacteria LM.HPF (Urine sed) [#/Area] Few Abnormal None Seen [facility] Comment on above: Order Comment: Speci men Type: URINE SPECIMENOrdering Facility: [facility] Address: [address] [place] [address] Performed By: #### 2 4356-8 ####[facility] LABORATORYCLIA [id number] [place] [address] [place] Bilirubin Ql (U) Negative Normal Negative [facility] Comment on above: Order Comment: Speci men Type: URINE SPECIMENOrdering Facility: [facility] Address: [address] [place] [address] Performed By: #### 2 4356-8 ####[facility] LABORATORYCLIA [id number] [address] Clarity (Unsp spec) Turbid Abnormal Clear [facility] Comment on above: Order Comment: Speci men Type: URINE SPECIMENOrdering Facility: [facility] Address: [address] [place] [address] Performed By: #### 2 4356-8 ####[facility] LABORATORYCLIA [id number] [address] Color (U) Light Yellow Normal yellow [facility] Comment on above: Order Comment: Speci men Type: URINE SPECIMENOrdering Facility: [facility] Address: [address] [place] [address] Performed By: #### 2 4356-8 ####[facility] LABORATORYCLIA [id number] [address] Glucose Test strip (U) [Mass/Vol] Negative Normal Negative [facility] Comment on above: Order Comment: Speci men Type: URINE SPECIMENOrdering Facility: [facility] Address: [address] [place] [address] Performed By: #### 2 4356-8 ####[facility] LABORATORYCLIA [id number] [address] Hemoglobin Ql (U) Negative Normal Negative [facility] Comment on above: Order Comment: Speci men Type: URINE SPECIMENOrdering Facility: [facility] Address: [address] [place] [address] Performed By: #### 2 4356-8 ####[facility] LABORATORYCLIA [id number] [address] Hyaline casts (Urine sed) [#/Area] 1-3 /LPF Abnormal 0 /LPF [facility] Comment on above: Order Comment: Speci men Type: URINE SPECIMENOrdering Facility: [facility] Address: [address] [place] [address] Performed By: #### 2 4356-8 ####[facility] LABORATORYCLIA [id number] [address] Ketones Ql (U) Negative Normal Negative [facility] Comment on above: Order Comment: Speci men Type: URINE SPECIMENOrdering Facility: [facility] Address: [address] [place] [address] Performed By: #### 2 4356-8 ####[facility] LABORATORYCLIA [id number] [address] Leukocyte esterase Test strip Ql (U) Negative Normal Negative [facility] Comment on above: Order Comment: Speci men Type: URINE SPECIMENOrdering Facility: [facility] Address: [address] [place] [address] Performed By: #### 2 4356-8 ####[facility] LABORATORYCLIA [id number] [address] [place] Nitrite Ql (U) Negative Normal Negative [facility] Comment on above: Order Comment: Speci men Type: URINE SPECIMENOrdering Facility: [facility] Address: [address] [place] [address] Performed By: #### 2 4356-8 ####[facility]ORATORYCLIA [id number] [place] [address] [place] pH (U) 5.0 [pH] Normal 5.0-8.0 [facility] Comment on above: Order Comment: Speci men Type: URINE SPECIMENOrdering Facility: [facility] Address: [address] [place] [address] Performed By: #### 2 4356-8 ####[facility] LABORATORYCLIA [id number] [address] [place] Protein (U) [Mass/Vol] Negative Normal Negative [facility] Comment on above: Order Comment: Speci men Type: URINE SPECIMENOrdering Facility: [facility] Address: [address] [address] Performed By: #### 2 4356-8 ####[facility] LABORATORYCLIA [id number] [address] RBC LM.HPF (Urine sed) [#/Area] 11-25 /HPF Abnormal 0-3 /HPF [facility] Comment on above: Order Comment: Speci men Type: URINE SPECIMENOrdering Facility: [facility] Address: [address] [place] [address] Performed By: #### 2 4356-8 ####[facility]ORATORYCLIA [id number] [address] Specific gravity (U) [Rel density] 1.018 Normal 1.005-1.030 [facility] Comment on above: Order Comment: Speci men Type: URINE SPECIMENOrdering Facility: [facility] Address: [address] [place] [address] Performed By: #### 2 4356-8 ####[facility] LABORATORYCLIA [id number] [address] Urobilinogen Ql (U) Normal Normal Negative [facility] Comment on above: Order Comment: Speci men Type: URINE SPECIMENOrdering Facility: [facility] Address: [address] [place] [address] Performed By: #### 2 4356-8 ####[facility] LABORATORYCLIA [id number] [address] STATES [facility] WBC LM.HPF (Urine sed) [#/Area] /[HPF] Abnormal 0-5 /HPF [facility] Comment on above: Order Comment: Speci men Type: URINE SPECIMENOrdering Facility: [facility] Address: [address] [place] [address] Performed By: #### 2 4356-8 ####[facility] LABORATORYCLIA [id number] [address] [place] Vancomycin random [Mass/Vol] on 07-08-2021 Vancomycin [Mass/Vol] 31.0 ug/mL High 10.0-20.0 [facility] Comment on above: Order Comment: Speci men Type: BLOOD SPECIMENOrdering Facility: [facility] Address: [address] [place] [address] Result Comment: Refe rence ranges and high/low indicator flags are provided as general guidelines only. The treating physician must determine appropriate target levels/dosing based on the specific clinical situation. Performed By: #### 4 091-5 ####[facility] LABORATORYCLIA [id number] [place] [address] [place] [facility] XR ABD 2V SUPINE W UPR/DECUB /CTLon 07-08-2021 XR ABD 2V SUPINE W UPR/DECUB/CTL Normal [facility] XR CHEST 1V FRONTALon 2021 XR CHEST 1V FRONTAL Normal [facility] XR CHEST 1V FRONTAL Normal [facility] XR NECK SOFT TISSUE 2V AP/LA Ton 07-08-2021 XR NECK SOFT TISSUE 2V AP/LAT Normal [facility] XR SKULL 2V AP/LATon 022 XR SKULL 2V AP/LAT Normal [facility] HISTORY PHYSICALon HISTORY PHYSICAL HNO ID: [id number] Author: Amy Beltran MD Service: ? Author Type: Physician Type: HANDP Filed: 06/30/2021 6:42 PM Note Text: Connected Care Unit History and Physical Facility: [facility] Level of Care: Skilled Admission Date: June [...] regarding the above plan. Total time spent pdxb-tg-last and/or counseling and coordinating care on the skilled care unit for patient was approximately 45 minutes SUBJECTIVE (HISTORY) Chief Complaint: Confusion, infection, blood clot. Andrew Sifuentes is being seen today for snf facility (SNF) admission AND management of weakness, tube feed, infected retroperitoneal infection and seizure. HPI: This is a 71 year old male who presents from [facility] with primary admitting diagnosis of Seizure, [...] CT brain concerning for hydrocephalus. Tip of [employer] shunt was found to be in the [...] (more content not included)... Normal [facility] Basic metabolic 2000 panelon 06-28-2021 Anion gap [Moles/Vol] 7 mmol/L Low 9-18 [facility] Comment on above: Order Comment: Speci men Type: BLOOD SPECIMENOrdering Facility: [facility] Address: [address] [place] [address] Performed By: #### 2 4321-2, 45696-3 ####[facility] LABORATORYCLIA [id number] [place] [address] [place] Calcium [Mass/Vol] 8.8 mg/dL Normal 8.5-10.2 [facility] Comment on above: Order Comment: Speci men Type: BLOOD SPECIMENOrdering Facility: [facility] Address: [address] [place] [address] Performed By: #### 2 4321-2, ####[facility]ORATORYCLIA [id number] [place] [address] [place] Chloride [Moles/Vol] 103 mmol/L Normal 97-105 [facility] Comment on above: Order Comment: Speci men Type: BLOOD SPECIMENOrdering Facility: [facility] Address: [address] [place] [address] Performed By: #### 2 4322, ####[facility] LABORATORYCLIA [id number] [address] [place] CO2 [Moles/Vol] 28 mmol/L Normal 22-30 [facility] Comment on above: Order Comment: Speci men Type: BLOOD SPECIMENOrdering Facility: [facility] Address: [address] [place] [address] Performed By: #### 2 2, ####[facility]ORATORYCLIA [id number] [place] [address] [place] Creatinine [Mass/Vol] 0.57 mg/dL Low 0.73-1.22 [facility] Comment on above: Order Comment: Speci men Type: BLOOD SPECIMENOrdering Facility: [facility] Address: [address] [place] [address] Performed By: #### 2 4322, ####[facility]ORATORYCLIA [id number] [place] [address] [place] GFR/1.73 sq M.predicted MDRD (S/P/Bld) [Vol rate/Area] mL/min/{1.73_m2} Normal [facility] Comment on above: Order Comment: Shira feldman Type: BLOOD SPECIMENOrdering Facility: [facility] Address: [address] [place], [place] [phone] Result Comment: >60e GFR (Estimated GFR) Units [...] actual GFR. Performed By: #### 2 4321-2, 11183-3 ####[facility] LABORATORYCLIA [id number] [place] [address] [place] Glucose [Mass/Vol] 120 mg/dL High 74-99 [facility] Comment on above: Order Comment: Shira feldman Type: BLOOD SPECIMENOrdering Facility: [facility] Address: [address] [place] [phone] Result Comment: The [place] [employer] (ADA) provides guidance for cutoff [...] Standards of Medical Care in Diabetes 2016, [place] [employer]. Diabetes Care. 2016.39(Suppl 1). Performed By: #### 2 4321-2, 09642-4 ####[facility]ORATORYCLIA [id number] [place] [address] [place] Potassium [Moles/Vol] 3.8 mmol/L Normal 3.7-5.1 [facility] Comment on above: Order Comment: Speci men Type: BLOOD SPECIMENOrdering Facility: [facility] Address: [address] [place] [address] Performed By: #### 2 4321-2, ####[facility] LABORATORYCLIA [id number] [address] STATES OF [facility] Sodium [Moles/Vol] 138 mmol/L Normal 136-144 [facility] Comment on above: Order Comment: Speci men Type: BLOOD SPECIMENOrdering Facility: [facility] Address: [address] [place] [address] Performed By: #### 2 4321-2, ####[facility]ORATORYCLIA [id number] [address] STATES [facility] Urea nitrogen [Mass/Vol] 24 mg/dL Normal 9-24 [facility] Comment on above: Order Comment: Speci men Type: BLOOD SPECIMENOrdering Facility: [facility] Address: [address] [place] [address] Performed By: #### 2 432-2, ####[facility]ORATORYCLIA [id number] [address] OF [facility] CASE MANAGEMon 06-28-2021 CASE MANAGEM Normal [facility] CBC panel Auto (Bld)on 06-28 Erythrocyte distribution width (RBC) [Ratio] 15.6 % High 11.5-15.0 [facility] Comment on above: Order Comment: Speci men Type: BLOOD SPECIMENOrdering Facility: [facility] Address: [address] [place] [address] Performed By: #### 5 8410-2 ####[facility] LABORATORYCLIA [id number] [address] STATES [facility] Hematocrit (Bld) [Volume fraction] 30.5 % Low 39.0-51.0 [facility] Comment on above: Order Comment: Speci men Type: BLOOD SPECIMENOrdering Facility: [facility] Address: [address] [address] Performed By: #### 5 8410-2 ####[facility]ORATORYCLIA [id number] [address] Hemoglobin (Bld) [Mass/Vol] 9.4 g/dL Low 13.0-17.0 [facility] Comment on above: Order Comment: Speci men Type: BLOOD SPECIMENOrdering Facility: [facility] Address: [address] [place] [address] Performed By: #### 5 8410-2 ####[facility]ORATORYCLIA [id number] [address] MCH (RBC) [Entitic mass] 27.8 pg Normal 26.0-34.0 [facility] Comment on above: Order Comment: Speci men Type: BLOOD SPECIMENOrdering Facility: [facility] Address: [address] [place] [address] Performed By: #### 5 8410-2 ####[facility] LABORATORYCLIA [id number] [address] MCHC (RBC) [Mass/Vol] 30.8 g/dL Normal 30.5-36.0 [facility] Comment on above: Order Comment: Speci men Type: BLOOD SPECIMENOrdering Facility: [facility] Address: [address] [place] [address] Performed By: #### 5 8410-2 ####[facility] LABORATORYCLIA [id number] [address] MCV (RBC) [Entitic vol] 90.2 fL Normal 80.0-100.0 [facility] Comment on above: Order Comment: Speci men Type: BLOOD SPECIMENOrdering Facility: [facility] Address: [address] [place] [address] Performed By: #### 5 8410-2 ####[facility]ORATORYCLIA [id number] [address] Nucleated RBC (Bld) [#/Vol] 10*3/uL Normal <0.01 [facility] Comment on above: Order Comment: Speci men Type: BLOOD SPECIMENOrdering Facility: [facility] Address: [address] [place] [address] Performed By: #### 5 8410-2 ####[facility]ORATORYCLIA [id number] [address] [place] Platelet mean volume (Bld) [Entitic vol] 9.9 fL Normal 9.0-12.7 [facility] Comment on above: Order Comment: Speci men Type: BLOOD SPECIMENOrdering Facility: [facility] Address: [address] [place] [address] Performed By: #### 5 8410-2 ####[facility]ORATORYCLIA [id number] [address] [place] Platelets (Bld) [#/Vol] 333 10*3/uL Normal 150-400 [facility] Comment on above: Order Comment: Speci men Type: BLOOD SPECIMENOrdering Facility: [facility] Address: [address] [place] [address] Performed By: #### 5 8410-2 ####[facility] LABORATORYCLIA [id number] [place] [address] [place] RBC (Bld) [#/Vol] 3.38 10*6/uL Low 4.20-6.00 [facility] Comment on above: Order Comment: Speci men Type: BLOOD SPECIMENOrdering Facility: [facility] Address: [address] [place], [place] [address] Performed By: #### 5 8410-2 ####[facility] LABORATORYCLIA [id number] [address] [place] WBC (Bld) [#/Vol] 9.71 10*3/uL Normal 3.70-11.00 [facility] Comment on above: Order Comment: Speci men Type: BLOOD SPECIMENOrdering Facility: [facility] Address: [address] [place] [address] Performed By: #### 5 8410-2 ####[facility]ORATORYCLIA [id number] [address] [place] CNDSon 06-28-2021 CNDS Normal [facility] CONSULT PROGon 06-28-2021 CONSULT PROG Normal [facility] Magnesium SerPl-mCncon 06-28 Magnesium [Mass/Vol] 2.2 mg/dL Normal 1.7-2.3 [facility] Comment on above: Order Comment: Speci men Type: BLOOD SPECIMENOrdering Facility: [facility] Address: [address] [place] [address] Performed By: #### 2 4321-2, 88886-3 ####[facility]ORATORYCLIA [id number] [address] STATES OF [facility] Vancomycin random [Mass/Vol] on 06-28-2021 Vancomycin [Mass/Vol] 23.0 ug/mL High 10.0-20.0 [facility] Comment on above: Order Comment: Speci men Type: BLOOD SPECIMENOrdering Facility: [facility] Address: [address] [place] [address] Result Comment: Refe rence ranges and high/low indicator flags are provided as general guidelines only. The treating physician must determine appropriate target levels/dosing based on the specific clinical situation. Performed By: #### 4 091-5 ####[facility]ORATORYCLIA [id number] [address] [place] ALLIED HEALTHon 06-27-2021 ALLIED HEALTH Normal [facility] Basic metabolic 2000 panelon 06-27-2021 Anion gap [Moles/Vol] 10 mmol/L Normal 9-18 [facility] Comment on above: Order Comment: Speci men Type: BLOOD SPECIMENOrdering Facility: [facility] Address: [address] [place] [address] Performed By: #### 2 4321-2, 78037-6 ####[facility] LABORATORYCLIA [id number] [address] [place] Calcium [Mass/Vol] 8.8 mg/dL Normal 8.5-10.2 [facility] Comment on above: Order Comment: Speci men Type: BLOOD SPECIMENOrdering Facility: [facility] Address: [address] [place] [address] Performed By: #### 2 4321-2, ####[facility]ORATORYCLIA [id number] [place] [address] [place] Chloride [Moles/Vol] 104 mmol/L Normal 97-105 [facility] Comment on above: Order Comment: Speci men Type: BLOOD SPECIMENOrdering Facility: [facility] Address: [address] [place] [address] Performed By: #### 2 4320-2, ####[facility]ORATORYCLIA [id number] [address] STATES OF [facility] CO2 [Moles/Vol] 26 mmol/L Normal 22-30 [facility] Comment on above: Order Comment: Speci men Type: BLOOD SPECIMENOrdering Facility: [facility] Address: [address] [place] [address] Performed By: #### 2 4320-2, ####[facility] LABORATORYCLIA [id number] [address] [place] Creatinine [Mass/Vol] 0.57 mg/dL Low 0.73-1.22 [facility] Comment on above: Order Comment: Speci men Type: BLOOD SPECIMENOrdering Facility: [facility] Address: [address] [place] [address] Performed By: #### 2 4321-2, ####[facility]ORATORYCLIA [id number] [place] [address] [place] GFR/1.73 sq M.predicted MDRD (S/P/Bld) [Vol rate/Area] mL/min/{1.73_m2} Normal [facility] Comment on above: Order Comment: Speci men Type: BLOOD SPECIMENOrdering Facility: [facility] Address: [address] [phone] Result Comment: >60e GFR (Estimated GFR) Units [...] actual GFR. Performed By: #### 2 4321-2, 39547-0 ####[facility] [id number] [place] [address] [place] Glucose [Mass/Vol] 133 mg/dL High 74-99 [facility] Comment on above: Order Comment: Shira feldman Type: BLOOD SPECIMENOrdering Facility: [facility] Address: [address] [place] [address] Result Comment: The [place] [employer] (ADA) provides guidance for cutoff [...] Standards of Medical Care in Diabetes 2016, [place] [employer]. Diabetes Care. 2016.39(Suppl 1). Performed By: #### 2 4321-2, 82425-6 ####[facility]ATORYCLIA [id number] [place] [address] [place] Potassium [Moles/Vol] 4.2 mmol/L Normal 3.7-5.1 [facility] Comment on above: Order Comment: Shira feldman Type: BLOOD SPECIMENOrdering Facility: [facility] Address: [address] [address] Performed By: #### 2 4321-2, ####[facility]ORATORYCLIA [id number] [address] Sodium [Moles/Vol] 140 mmol/L Normal 136-144 [facility] Comment on above: Order Comment: Speci men Type: BLOOD SPECIMENOrdering Facility: [facility] Address: [address] [place] [address] Performed By: #### 2 432-2, ####[facility]ORATORYCLIA [id number] [address] STATES [facility] Urea nitrogen [Mass/Vol] 24 mg/dL Normal 9-24 [facility] Comment on above: Order Comment: Speci men Type: BLOOD SPECIMENOrdering Facility: [facility] Address: [address] [place] [address] Performed By: #### 2 2, ####[facility]ORATORYCLIA [id number] [address] STATES [facility] CASE MANAGEMon 06-27-2021 CASE MANAGEM Normal [facility] CBC panel Auto (Bld)on 06-27 Erythrocyte distribution width (RBC) [Ratio] 15.8 % High 11.5-15.0 [facility] Comment on above: Order Comment: Speci men Type: BLOOD SPECIMENOrdering Facility: [facility] Address: [address] [address] Performed By: #### 5 8410-2 ####[facility] LABORATORYCLIA [id number] [address] Hematocrit (Bld) [Volume fraction] 31.4 % Low 39.0-51.0 [facility] Comment on above: Order Comment: Speci men Type: BLOOD SPECIMENOrdering Facility: [facility] Address: [address] [place] [address] Performed By: #### 5 8410-2 ####[facility] LABORATORYCLIA [id number] [address] STATES OF [facility] Hemoglobin (Bld) [Mass/Vol] 9.3 g/dL Low 13.0-17.0 [facility] Comment on above: Order Comment: Speci men Type: BLOOD SPECIMENOrdering Facility: [facility] Address: [address] [place] [address] Performed By: #### 5 8410-2 ####[facility] LABORATORYCLIA [id number] [address] MCH (RBC) [Entitic mass] 27.0 pg Normal 26.0-34.0 [facility] Comment on above: Order Comment: Speci men Type: BLOOD SPECIMENOrdering Facility: [facility] Address: [address] [place] [address] Performed By: #### 5 8410-2 ####[facility] LABORATORYCLIA [id number] [address] MCHC (RBC) [Mass/Vol] 29.6 g/dL Low 30.5-36.0 [facility] Comment on above: Order Comment: Speci men Type: BLOOD SPECIMENOrdering Facility: [facility] Address: [address] [place] [address] Performed By: #### 5 8410-2 ####[facility] LABORATORYCLIA [id number] [address] MCV (RBC) [Entitic vol] 91.3 fL Normal 80.0-100.0 [facility] Comment on above: Order Comment: Speci men Type: BLOOD SPECIMENOrdering Facility: [facility] Address: [address] [place] [address] Performed By: #### 5 8410-2 ####[facility] LABORATORYCLIA [id number] [address] Nucleated RBC (Bld) [#/Vol] 10*3/uL Normal <0.01 [facility] Comment on above: Order Comment: Speci men Type: BLOOD SPECIMENOrdering Facility: [facility] Address: [address] [place] [address] Performed By: #### 5 8410-2 ####[facility] LABORATORYCLIA [id number] [address] Platelet mean volume (Bld) [Entitic vol] 10.3 fL Normal 9.0-12.7 [facility] Comment on above: Order Comment: Speci men Type: BLOOD SPECIMENOrdering Facility: [facility] Address: [address] [place] [address] Performed By: #### 5 8410-2 ####[facility] LABORATORYCLIA [id number] [address] [place] Platelets (Bld) [#/Vol] 359 10*3/uL Normal 150-400 [facility] Comment on above: Order Comment: Speci men Type: BLOOD SPECIMENOrdering Facility: [facility] Address: [address] [place] [address] Performed By: #### 5 8410-2 ####[facility] LABORATORYCLIA [id number] [address] [place] RBC (Bld) [#/Vol] 3.44 10*6/uL Low 4.20-6.00 [facility] Comment on above: Order Comment: Speci men Type: BLOOD SPECIMENOrdering Facility: [facility] Address: [address] [place] [address] Performed By: #### 5 8410-2 ####[facility] LABORATORYCLIA [id number] [address] [place] WBC (Bld) [#/Vol] 10.73 10*3/uL Normal 3.70-11.00 [facility] Comment on above: Order Comment: Speci men Type: BLOOD SPECIMENOrdering Facility: [facility] Address: [address] [place] [address] Performed By: #### 5 8410-2 ####[facility]ORATORYCLIA [id number] [place] [address] [place] Magnesium SerPl-mCncon 06-27 Magnesium [Mass/Vol] 2.2 mg/dL Normal 1.7-2.3 [facility] Comment on above: Order Comment: Speci men Type: BLOOD SPECIMENOrdering Facility: [facility] Address: [address] [place] [address] Performed By: #### 2 4321-2, 52390-0 ####[facility]ORATORYCLIA [id number] [place] [address] [place] NT-proBNP SerPl-mCncon 06-27 Natriuretic peptide.B prohormone N-Terminal [Mass/Vol] 184 pg/mL High <125 [facility] Comment on above: Order Comment: Speci men Type: BLOOD SPECIMENOrdering Facility: [facility] Address: [address] [place] [address] Performed By: #### 3 3762-6 ####[facility] LABORATORYCLIA [id number] [place] [address] [place] NUTRITIONon 06-27-2021 NUTRITION Normal [facility] THERAPY NTon 06-27-2021 THERAPY NT Normal [facility] THERAPY NT Normal [facility] XR CHEST 1V FRONTALon 2021 XR CHEST 1V FRONTAL Normal [facility] Basic metabolic 2000 panelon 06-26-2021 Anion gap [Moles/Vol] 9 mmol/L Normal 9-18 [facility] Comment on above: Order Comment: Speci men Type: BLOOD SPECIMENOrdering Facility: [facility] Address: [address] [place] [address] Performed By: #### 1 9123-9, 48256-5 ####[facility]ORATORYCLIA [id number] [place] [address] [place] Calcium [Mass/Vol] 8.7 mg/dL Normal 8.5-10.2 [facility] Comment on above: Order Comment: Speci men Type: BLOOD SPECIMENOrdering Facility: [facility] Address: [address] [address] Performed By: #### 1 9123-9, 58563-8 ####[facility] LABORATORYCLIA [id number] [place] [address] [place] Chloride [Moles/Vol] 105 mmol/L Normal 97-105 [facility] Comment on above: Order Comment: Speci men Type: BLOOD SPECIMENOrdering Facility: [facility] Address: [address] [place] [address] Performed By: #### 1 9123-9, 36669-3 ####[facility] LABORATORYCLIA [id number] [place] [address] [place] CO2 [Moles/Vol] 26 mmol/L Normal 22-30 [facility] Comment on above: Order Comment: Speci men Type: BLOOD SPECIMENOrdering Facility: [facility] Address: [address] [place] [address] Performed By: #### 1 9123-9, 52807-2 ####[facility] LABORATORYCLIA [id number] [place] [address] [place] Creatinine [Mass/Vol] 0.56 mg/dL Low 0.73-1.22 [facility] Comment on above: Order Comment: Speci men Type: BLOOD SPECIMENOrdering Facility: [facility] Address: [address] [place] [address] Performed By: #### 1 9123-9, 19597-0 ####[facility] LABORATORYCLIA [id number] [place] [address] [place] GFR/1.73 sq M.predicted MDRD (S/P/Bld) [Vol rate/Area] mL/min/{1.73_m2} Normal [facility] Comment on above: Order Comment: Speci men Type: BLOOD SPECIMENOrdering Facility: [facility] Address: [address] [place] [address] Result Comment: >60e GFR (Estimated GFR) Units [...] actual GFR. Performed By: #### 1 9123-9, 60941-4 ####[facility]ORATORYCLIA [id number] [place] [address] [place] Glucose [Mass/Vol] 134 mg/dL High 74-99 [facility] Comment on above: Order Comment: Shira feldman Type: BLOOD SPECIMENOrdering Facility: [facility] Address: [address] [place], [place] [address] Result Comment: The [place] [employer] (ADA) provides guidance for cutoff [...] Standards of Medical Care in Diabetes 2016, [place] [employer]. Diabetes Care. 2016.39(Suppl 1). Performed By: #### 1 9123-9, 08097-5 ####[facility]ORATORYCLIA [id number] [place] [address] [place] Potassium [Moles/Vol] 3.8 mmol/L Normal 3.7-5.1 [facility] Comment on above: Order Comment: Shira feldman Type: BLOOD SPECIMENOrdering Facility: [facility] Address: [address] [place], [place] [address] Performed By: #### 1 9123-9, 32199-0 ####[facility]ORATORYCLIA [id number] [address] STATES [facility] Sodium [Moles/Vol] 140 mmol/L Normal 136-144 [facility] Comment on above: Order Comment: Speci men Type: BLOOD SPECIMENOrdering Facility: [facility] Address: [address] [place] [address] Performed By: #### 1 9123-9, 96843-5 ####[facility] LABORATORYCLIA [id number] [address] STATES [facility] Urea nitrogen [Mass/Vol] 24 mg/dL Normal 9-24 [facility] Comment on above: Order Comment: Speci men Type: BLOOD SPECIMENOrdering Facility: [facility] Address: [address] [place] [address] Performed By: #### 1 9123-9, 86098-9 ####[facility] LABORATORYCLIA [id number] [address] CBC panel Auto (Bld)on 06-26 Erythrocyte distribution width (RBC) [Ratio] 15.9 % High 11.5-15.0 [facility] Comment on above: Order Comment: Speci men Type: BLOOD SPECIMENOrdering Facility: [facility] Address: [address] [place] [address] Performed By: #### 5 8410-2 ####[facility] LABORATORYCLIA [id number] [address] STATES OF [facility] Hematocrit (Bld) [Volume fraction] 29.8 % Low 39.0-51.0 [facility] Comment on above: Order Comment: Speci men Type: BLOOD SPECIMENOrdering Facility: [facility] Address: [address] [place] [address] Performed By: #### 5 8410-2 ####[facility] LABORATORYCLIA [id number] [address] [place] Hemoglobin (Bld) [Mass/Vol] 9.1 g/dL Low 13.0-17.0 [facility] Comment on above: Order Comment: Speci men Type: BLOOD SPECIMENOrdering Facility: [facility] Address: [address] [place] [address] Performed By: #### 5 8410-2 ####[facility] LABORATORYCLIA [id number] [address] MCH (RBC) [Entitic mass] 27.8 pg Normal 26.0-34.0 [facility] Comment on above: Order Comment: Speci men Type: BLOOD SPECIMENOrdering Facility: [facility] Address: [address] [place] [address] Performed By: #### 5 8410-2 ####[facility] LABORATORYCLIA [id number] [address] MCHC (RBC) [Mass/Vol] 30.5 g/dL Normal 30.5-36.0 [facility] Comment on above: Order Comment: Speci men Type: BLOOD SPECIMENOrdering Facility: [facility] Address: [address] [place] [address] Performed By: #### 5 8410-2 ####[facility] LABORATORYCLIA [id number] [address] MCV (RBC) [Entitic vol] 91.1 fL Normal 80.0-100.0 [facility] Comment on above: Order Comment: Speci men Type: BLOOD SPECIMENOrdering Facility: [facility] Address: [address] [place] [address] Performed By: #### 5 8410-2 ####[facility] LABORATORYCLIA [id number] [address] Nucleated RBC (Bld) [#/Vol] 10*3/uL Normal <0.01 [facility] Comment on above: Order Comment: Speci men Type: BLOOD SPECIMENOrdering Facility: [facility] Address: [address] [place] [address] Performed By: #### 5 8410-2 ####[facility] LABORATORYCLIA [id number] [address] Platelet mean volume (Bld) [Entitic vol] 10.3 fL Normal 9.0-12.7 [facility] Comment on above: Order Comment: Speci men Type: BLOOD SPECIMENOrdering Facility: [facility] Address: [address] [place] [address] Performed By: #### 5 8410-2 ####[facility] LABORATORYCLIA [id number] [address] [place] Platelets (Bld) [#/Vol] 336 10*3/uL Normal 150-400 [facility] Comment on above: Order Comment: Speci men Type: BLOOD SPECIMENOrdering Facility: [facility] Address: [address] [place] [address] Performed By: #### 5 8410-2 ####[facility] LABORATORYCLIA [id number] [address] STATES OF [facility] RBC (Bld) [#/Vol] 3.27 10*6/uL Low 4.20-6.00 [facility] Comment on above: Order Comment: Speci men Type: BLOOD SPECIMENOrdering Facility: [facility] Address: [address] [place] [address] Performed By: #### 5 8410-2 ####[facility] LABORATORYCLIA [id number] [address] [place] WBC (Bld) [#/Vol] 9.14 10*3/uL Normal 3.70-11.00 [facility] Comment on above: Order Comment: Speci men Type: BLOOD SPECIMENOrdering Facility: [facility] Address: [address] [place] [address] Performed By: #### 5 8410-2 ####[facility] LABORATORYCLIA [id number] [address] OF [facility] CONSULT PROGon 06-26-2021 CONSULT PROG Normal [facility] Magnesium SerPl-mCncon 06-26 Magnesium [Mass/Vol] 2.2 mg/dL Normal 1.7-2.3 [facility] Comment on above: Order Comment: Speci men Type: BLOOD SPECIMENOrdering Facility: [facility] Address: [address] [place] [address] Performed By: #### 1 9123-9, 78998-7 ####[facility]ORATORYCLIA [id number] [place] [address] [place] NURSING PROGon 06-26-2021 NURSING PROG Normal [facility] NURSING PROG Normal [facility] Basic metabolic 2000 panelon 06-25-2021 Anion gap [Moles/Vol] 8 mmol/L Low 9-18 [facility] Comment on above: Order Comment: Speci men Type: BLOOD SPECIMENOrdering Facility: [facility] Address: [address] [place] [address] Performed By: #### 2 4321-2, ####[facility]ORATORYCLIA [id number] [place] [address] [place] Calcium [Mass/Vol] 8.8 mg/dL Normal 8.5-10.2 [facility] Comment on above: Order Comment: Speci men Type: BLOOD SPECIMENOrdering Facility: [facility] Address: [address] [place] [address] Performed By: #### 2 4321-2, ####[facility]ORATORYCLIA [id number] [place] [address] [place] Chloride [Moles/Vol] 105 mmol/L Normal 97-105 [facility] Comment on above: Order Comment: Speci men Type: BLOOD SPECIMENOrdering Facility: [facility] Address: [address] [place] [address] Performed By: #### 2 4321-2, ####[facility]ORATORYCLIA [id number] [place] [address] [place] CO2 [Moles/Vol] 27 mmol/L Normal 22-30 [facility] Comment on above: Order Comment: Speci men Type: BLOOD SPECIMENOrdering Facility: [facility] Address: [address] Performed By: #### 2 432-, ####[facility] LABORATORYCLIA [id number] [place] [address] [place] Creatinine [Mass/Vol] 0.59 mg/dL Low 0.73-1.22 [facility] Comment on above: Order Comment: Shira feldman Type: BLOOD SPECIMENOrdering Facility: [facility] Address: [address] [place] [address] Performed By: #### 2 43205-08, ####[facility]ITALCLIA [id number] [place] [address] [place] GFR/1.73 sq M.predicted MDRD (S/P/Bld) [Vol rate/Area] mL/min/{1.73_m2} Normal [facility] Comment on above: Order Comment: Shira feldman Type: BLOOD SPECIMENOrdering Facility: [facility] Address: [address] [place] [address] Result Comment: >60e GFR (Estimated GFR) Units [...] actual GFR. Performed By: #### 2 432-, ####[facility]ORATORYCLIA [id number] [address] [place] Glucose [Mass/Vol] 132 mg/dL High 74-99 [facility] Comment on above: Order Comment: Shira feldman Type: BLOOD SPECIMENOrdering Facility: [facility] Address: [address] [address] Result Comment: The [place] [employer] (ADA) provides guidance for cutoff [...] Standards of Medical Care in Diabetes 2016, [place] [employer]. Diabetes Care. 2016.39(Suppl 1). Performed By: #### 2 ####[facility]ORATORYCLIA [id number] [place] [address] [place] Potassium [Moles/Vol] 3.9 mmol/L Normal 3.7-5.1 [facility] Comment on above: Order Comment: Speci men Type: BLOOD SPECIMENOrdering Facility: [facility] Address: [address] [place] [address] Performed By: #### 2 ####[facility]ORATORYCLIA [id number] [place] [address] [place] Sodium [Moles/Vol] 140 mmol/L Normal 136-144 [facility] Comment on above: Order Comment: Speci men Type: BLOOD SPECIMENOrdering Facility: [facility] Address: [address] [address] Performed By: #### 2 ####[facility]ORATORYCLIA [id number] [place] [address] [place] Urea nitrogen [Mass/Vol] 24 mg/dL Normal 9-24 [facility] Comment on above: Order Comment: Speci men Type: BLOOD SPECIMENOrdering Facility: [facility] Address: [address] Performed By: #### 2 ####[facility] LABORATORYCLIA [id number] [address] [place] CASE MANAGEMon 06-25-2021 CASE MANAGEM Normal [facility] CBC panel Auto (Bld)on 06-25 Erythrocyte distribution width (RBC) [Ratio] 15.9 % High 11.5-15.0 [facility] Comment on above: Order Comment: Speci men Type: BLOOD SPECIMENOrdering Facility: [facility] Address: [address] [place] [address] Performed By: #### 5 8410-2 ####[facility] LABORATORYCLIA [id number] [address] Hematocrit (Bld) [Volume fraction] 31.0 % Low 39.0-51.0 [facility] Comment on above: Order Comment: Speci men Type: BLOOD SPECIMENOrdering Facility: [facility] Address: [address] [place] [address] Performed By: #### 5 8410-2 ####[facility] LABORATORYCLIA [id number] [address] [place] Hemoglobin (Bld) [Mass/Vol] 9.4 g/dL Low 13.0-17.0 [facility] Comment on above: Order Comment: Speci men Type: BLOOD SPECIMENOrdering Facility: [facility] Address: [address] [place] [address] Performed By: #### 5 8410-2 ####[facility] LABORATORYCLIA [id number] [address] STATES [facility] MCH (RBC) [Entitic mass] 28.1 pg Normal 26.0-34.0 [facility] Comment on above: Order Comment: Speci men Type: BLOOD SPECIMENOrdering Facility: [facility] Address: [address] [place] [address] Performed By: #### 5 8410-2 ####[facility] LABORATORYCLIA [id number] [address] [place] MCHC (RBC) [Mass/Vol] 30.3 g/dL Low 30.5-36.0 [facility] Comment on above: Order Comment: Speci men Type: BLOOD SPECIMENOrdering Facility: [facility] Address: [address] [place] [address] Performed By: #### 5 8410-2 ####[facility] LABORATORYCLIA [id number] [address] STATES OF [facility] MCV (RBC) [Entitic vol] 92.5 fL Normal 80.0-100.0 [facility] Comment on above: Order Comment: Speci men Type: BLOOD SPECIMENOrdering Facility: [facility] Address: [address] [place] [address] Performed By: #### 5 8410-2 ####[facility]ORATORYCLIA [id number] [address] [place] Nucleated RBC (Bld) [#/Vol] 10*3/uL Normal <0.01 [facility] Comment on above: Order Comment: Speci men Type: BLOOD SPECIMENOrdering Facility: [facility] Address: [address] [place] [address] Performed By: #### 5 8410-2 ####[facility] LABORATORYCLIA [id number] [address] [place] Platelet mean volume (Bld) [Entitic vol] 10.5 fL Normal 9.0-12.7 [facility] Comment on above: Order Comment: Speci men Type: BLOOD SPECIMENOrdering Facility: [facility] Address: [address] [place] [address] Performed By: #### 5 8410-2 ####[facility] LABORATORYCLIA [id number] [address] [place] Platelets (Bld) [#/Vol] 311 10*3/uL Normal 150-400 [facility] Comment on above: Order Comment: Speci men Type: BLOOD SPECIMENOrdering Facility: [facility] Address: [address] [place] [address] Performed By: #### 5 8410-2 ####[facility] LABORATORYCLIA [id number] [address] STATES OF [facility] RBC (Bld) [#/Vol] 3.35 10*6/uL Low 4.20-6.00 [facility] Comment on above: Order Comment: Speci men Type: BLOOD SPECIMENOrdering Facility: [facility] Address: [address] [place] [address] Performed By: #### 5 8410-2 ####[facility] LABORATORYCLIA [id number] [address] OF [facility] WBC (Bld) [#/Vol] 9.57 10*3/uL Normal 3.70-11.00 [facility] Comment on above: Order Comment: Speci men Type: BLOOD SPECIMENOrdering Facility: [facility] Address: [address] [place] [address] Performed By: #### 5 8410-2 ####[facility] LABORATORYCLIA [id number] [address] [place] Magnesium SerPl-mCncon 06-25 Magnesium [Mass/Vol] 2.4 mg/dL High 1.7-2.3 [facility] Comment on above: Order Comment: Speci men Type: BLOOD SPECIMENOrdering Facility: [facility] Address: [address] [place] [address] Performed By: #### 2 4321-2, 48464-3 ####[facility] LABORATORYCLIA [id number] [address] [place] Basic metabolic 2000 panelon 06-24-2021 Anion gap [Moles/Vol] 9 mmol/L Normal 9-18 [facility] Comment on above: Order Comment: Speci men Type: BLOOD SPECIMENOrdering Facility: [facility] Address: [address] [place] [address] Performed By: #### 1 9123-9, 08742-3 ####[facility] LABORATORYCLIA [id number] [place] [address] [place] Calcium [Mass/Vol] 8.6 mg/dL Normal 8.5-10.2 [facility] Comment on above: Order Comment: Speci men Type: BLOOD SPECIMENOrdering Facility: [facility] Address: [address] [place] [address] Performed By: #### 1 9123-9, 05430-4 ####[facility] LABORATORYCLIA [id number] [place] [address] [place] Chloride [Moles/Vol] 103 mmol/L Normal 97-105 [facility] Comment on above: Order Comment: Speci men Type: BLOOD SPECIMENOrdering Facility: [facility] Address: [address] [place] [address] Performed By: #### 1 9123-9, 24644-6 ####[facility] LABORATORYCLIA [id number] [address] [place] CO2 [Moles/Vol] 26 mmol/L Normal 22-30 [facility] Comment on above: Order Comment: Speci men Type: BLOOD SPECIMENOrdering Facility: [facility] Address: [address] [place] [address] Performed By: #### 1 9123-9, 92537-5 ####[facility] LABORATORYCLIA [id number] [place] [address] [place] Creatinine [Mass/Vol] 0.60 mg/dL Low 0.73-1.22 [facility] Comment on above: Order Comment: Speci men Type: BLOOD SPECIMENOrdering Facility: [facility] Address: [address] [place] [address] Performed By: #### 1 9123-9, 95196-0 ####[facility]ORATORYCLIA [id number] [address] [place] GFR/1.73 sq M.predicted MDRD (S/P/Bld) [Vol rate/Area] mL/min/{1.73_m2} Normal [facility] Comment on above: Order Comment: Speci men Type: BLOOD SPECIMENOrdering Facility: [facility] Address: [address] [place], [place] [address] Result Comment: >60e GFR (Estimated GFR) Units [...] actual GFR. Performed By: #### 1 9123-9, 91148-3 ####[facility]CL[facility] [id number] [place] [address] [place] Glucose [Mass/Vol] 126 mg/dL High 74-99 [facility] Comment on above: Order Comment: Shira feldman Type: BLOOD SPECIMENOrdering Facility: [facility] Address: [address] [place], [place] [address] Result Comment: The [place] [employer] (ADA) provides guidance for cutoff [...] Standards of Medical Care in Diabetes 2016, [place] [employer]. Diabetes Care. 2016.39(Suppl 1). Performed By: #### 1 9123-9, 79841-5 ####[facility] LABORATORYCLIA [id number] [place] [address] [place] Potassium [Moles/Vol] 3.9 mmol/L Normal 3.7-5.1 [facility] Comment on above: Order Comment: Speci men Type: BLOOD SPECIMENOrdering Facility: [facility] Address: [address] [place] [address] Performed By: #### 1 9123-9, 55515-0 ####[facility] LABORATORYCLIA [id number] [address] STATES OF [facility] Sodium [Moles/Vol] 138 mmol/L Normal 136-144 [facility] Comment on above: Order Comment: Speci men Type: BLOOD SPECIMENOrdering Facility: [facility] Address: [address] [place] [address] Performed By: #### 1 9123-9, 08834-7 ####[facility] LABORATORYCLIA [id number] [address] [place] Urea nitrogen [Mass/Vol] 24 mg/dL Normal 9-24 [facility] Comment on above: Order Comment: Speci men Type: BLOOD SPECIMENOrdering Facility: [facility] Address: [address] [place] [address] Performed By: #### 1 9123-9, 58738-6 ####[facility] LABORATORYCLIA [id number] [address] [facility] CASE MANAGEMon 06-24-2021 CASE MANAGEM Normal [facility] CASE MANAGEM Normal [facility] CASE MANAGEM Normal [facility] CBC panel Auto (Bld)on 06-24 Erythrocyte distribution width (RBC) [Ratio] 16.1 % High 11.5-15.0 [facility] Comment on above: Order Comment: Speci men Type: BLOOD SPECIMENOrdering Facility: [facility] Address: [address] [place] [address] Performed By: #### 5 8410-2 ####[facility] LABORATORYCLIA [id number] [address] [place] Hematocrit (Bld) [Volume fraction] 31.7 % Low 39.0-51.0 [facility] Comment on above: Order Comment: Speci men Type: BLOOD SPECIMENOrdering Facility: [facility] Address: [address] [place] [address] Performed By: #### 5 8410-2 ####[facility] LABORATORYCLIA [id number] [address] Hemoglobin (Bld) [Mass/Vol] 9.7 g/dL Low 13.0-17.0 [facility] Comment on above: Order Comment: Speci men Type: BLOOD SPECIMENOrdering Facility: [facility] Address: [address] [place] [address] Performed By: #### 5 8410-2 ####[facility] LABORATORYCLIA [id number] [address] MCH (RBC) [Entitic mass] 28.0 pg Normal 26.0-34.0 [facility] Comment on above: Order Comment: Speci men Type: BLOOD SPECIMENOrdering Facility: [facility] Address: [address] [place] [address] Performed By: #### 5 8410-2 ####[facility] LABORATORYCLIA [id number] [address] MCHC (RBC) [Mass/Vol] 30.6 g/dL Normal 30.5-36.0 [facility] Comment on above: Order Comment: Speci men Type: BLOOD SPECIMENOrdering Facility: [facility] Address: [address] [place] [address] Performed By: #### 5 8410-2 ####[facility] LABORATORYCLIA [id number] [address] STATES [facility] MCV (RBC) [Entitic vol] 91.4 fL Normal 80.0-100.0 [facility] Comment on above: Order Comment: Speci men Type: BLOOD SPECIMENOrdering Facility: [facility] Address: [address] [place] [address] Performed By: #### 5 8410-2 ####[facility] LABORATORYCLIA [id number] [address] Nucleated RBC (Bld) [#/Vol] 10*3/uL Normal <0.01 [facility] Comment on above: Order Comment: Speci men Type: BLOOD SPECIMENOrdering Facility: [facility] Address: [address] [place] [address] Performed By: #### 5 8410-2 ####[facility] LABORATORYCLIA [id number] [place] [address] [place] Platelet mean volume (Bld) [Entitic vol] 11.0 fL Normal 9.0-12.7 [facility] Comment on above: Order Comment: Speci men Type: BLOOD SPECIMENOrdering Facility: [facility] Address: [address] [place] [address] Performed By: #### 5 8410-2 ####[facility]ORATORYCLIA [id number] [place] [address] [place] Platelets (Bld) [#/Vol] 358 10*3/uL Normal 150-400 [facility] Comment on above: Order Comment: Speci men Type: BLOOD SPECIMENOrdering Facility: [facility] Address: [address] [place] [address] Performed By: #### 5 8410-2 ####[facility] LABORATORYCLIA [id number] [place] [address] [place] RBC (Bld) [#/Vol] 3.47 10*6/uL Low 4.20-6.00 [facility] Comment on above: Order Comment: Speci men Type: BLOOD SPECIMENOrdering Facility: [facility] Address: [address] [place] [address] Performed By: #### 5 8410-2 ####[facility] LABORATORYCLIA [id number] [place] [address] [place] WBC (Bld) [#/Vol] 10.07 10*3/uL Normal 3.70-11.00 [facility] Comment on above: Order Comment: Speci men Type: BLOOD SPECIMENOrdering Facility: [facility] Address: [address] [place] [address] Performed By: #### 5 8410-2 ####[facility] LABORATORYCLIA [id number] [place] [address] [place] Magnesium SerPl-mCncon 06-24 Magnesium [Mass/Vol] 2.3 mg/dL Normal 1.7-2.3 [facility] Comment on above: Order Comment: Speci men Type: BLOOD SPECIMENOrdering Facility: [facility] Address: [address] [place] [address] Performed By: #### 1 9123-9, 28730-5 ####[facility] LABORATORYCLIA [id number] [place] [address] [place] ALLIED HEALTHon 06-23-2021 ALLIED HEALTH Normal [facility] Basic metabolic 2000 panelon 06-23-2021 Anion gap [Moles/Vol] 9 mmol/L Normal 9-18 [facility] Comment on above: Order Comment: Speci men Type: BLOOD SPECIMENOrdering Facility: [facility] Address: [address] [place] [address] Performed By: #### 1 9123-9, 74860-8 ####[facility] LABORATORYCLIA [id number] [place] [address] [place] Calcium [Mass/Vol] 8.4 mg/dL Low 8.5-10.2 [facility] Comment on above: Order Comment: Speci men Type: BLOOD SPECIMENOrdering Facility: [facility] Address: [address] Performed By: #### 1 9123-9, 38650-3 ####[facility] LABORATORYCLIA [id number] [place] [address] [place] Chloride [Moles/Vol] 104 mmol/L Normal 97-105 [facility] Comment on above: Order Comment: Speci men Type: BLOOD SPECIMENOrdering Facility: [facility] Address: [address] [address] Performed By: #### 1 9123 ####[facility] LABORATORYCLIA [id number] [address] STATES [place] CO2 [Moles/Vol] 26 mmol/L Normal 22-30 [facility] Comment on above: Order Comment: Speci men Type: BLOOD SPECIMENOrdering Facility: [facility] Address: [address] [place] [address] Performed By: #### 1 91239, ####[facility]ITALCLIA [id number] [address] STATES OF [facility] Creatinine [Mass/Vol] 0.62 mg/dL Low 0.73-1.22 [facility] Comment on above: Order Comment: Speci men Type: BLOOD SPECIMENOrdering Facility: [facility] Address: [address] [place] [address] Performed By: #### 1 91239, ####[facility]PITALIA [id number] [address] GFR/1.73 sq M.predicted MDRD (S/P/Bld) [Vol rate/Area] mL/min/{1.73_m2} Normal [facility] Comment on above: Order Comment: Speci francia Type: BLOOD SPECIMENOrdering Facility: [facility] Address: [address] [place] [address] Result Comment: >60e GFR (Estimated GFR) Units [...] actual GFR. Performed By: #### 1 9123-9, ####[facility] LABORATORYCLIA [id number] [place] [id number] [place] Glucose [Mass/Vol] 111 mg/dL High 74-99 [facility] Comment on above: Order Comment: Speci men Type: BLOOD SPECIMENOrdering Facility: [facility] Address: [address] [place] [address] Result Comment: The [place] [employer] (ADA) provides guidance for cutoff [...] Standards of Medical Care in Diabetes 2016, [place] [employer]. Diabetes Care. 2016.39(Suppl 1). Performed By: #### 1 9123-9, 67039-6 ####[facility] LABORATORYCLIA [id number] [place] [address] [place] Potassium [Moles/Vol] 4.1 mmol/L Normal 3.7-5.1 [facility] Comment on above: Order Comment: Speci men Type: BLOOD SPECIMENOrdering Facility: [facility] Address: [address] [place] [address] Performed By: #### 1 9123-9, 31698-2 ####[facility]ORATORYCLIA [id number] [place] [address] [place] Sodium [Moles/Vol] 139 mmol/L Normal 136-144 [facility] Comment on above: Order Comment: Speci men Type: BLOOD SPECIMENOrdering Facility: [facility] Address: [address] [place] [address] Performed By: #### 1 9123-9, 33358-8 ####[facility]ORATORYCLIA [id number] [place] [address] [place] Urea nitrogen [Mass/Vol] 26 mg/dL High 9-24 [facility] Comment on above: Order Comment: Speci men Type: BLOOD SPECIMENOrdering Facility: [facility] Address: [address] [place] [address] Performed By: #### 1 9123-9, 52979-5 ####[facility] LABORATORYCLIA [id number] [address] STATES [place] CASE MANAGEMon 06-23-2021 CASE MANAGEM Normal [facility] CBC panel Auto (Bld)on 06-23 Erythrocyte distribution width (RBC) [Ratio] 16.0 % High 11.5-15.0 [facility] Comment on above: Order Comment: Speci men Type: BLOOD SPECIMENOrdering Facility: [facility] Address: [address] [place] [address] Performed By: #### 5 8410-2 ####[facility] LABORATORYCLIA [id number] [address] STATES [place] Hematocrit (Bld) [Volume fraction] 31.1 % Low 39.0-51.0 [facility] Comment on above: Order Comment: Speci men Type: BLOOD SPECIMENOrdering Facility: [facility] Address: [address] [place] [address] Performed By: #### 5 8410-2 ####[facility]ORATORYCLIA [id number] [place] [address] [place] Hemoglobin (Bld) [Mass/Vol] 9.5 g/dL Low 13.0-17.0 [facility] Comment on above: Order Comment: Speci men Type: BLOOD SPECIMENOrdering Facility: [facility] Address: [address] [place] [address] Performed By: #### 5 8410-2 ####[facility] LABORATORYCLIA [id number] [address] [place] MCH (RBC) [Entitic mass] 28.1 pg Normal 26.0-34.0 [facility] Comment on above: Order Comment: Speci men Type: BLOOD SPECIMENOrdering Facility: [facility] Address: [address] [address] Performed By: #### 5 8410-2 ####[facility] LABORATORYCLIA [id number] [address] STATES [facility] MCHC (RBC) [Mass/Vol] 30.5 g/dL Normal 30.5-36.0 [facility] Comment on above: Order Comment: Speci men Type: BLOOD SPECIMENOrdering Facility: [facility] Address: [address] [place] [address] Performed By: #### 5 8410-2 ####[facility]ORATORYCLIA [id number] [address] [place] MCV (RBC) [Entitic vol] 92.0 fL Normal 80.0-100.0 [facility] Comment on above: Order Comment: Speci men Type: BLOOD SPECIMENOrdering Facility: [facility] Address: [address] [place] [address] Performed By: #### 5 8410-2 ####[facility]ORATORYCLIA [id number] [address] [place] Nucleated RBC (Bld) [#/Vol] 10*3/uL Normal <0.01 [facility] Comment on above: Order Comment: Speci men Type: BLOOD SPECIMENOrdering Facility: [facility] Address: [address] [place] [address] Performed By: #### 5 8410-2 ####[facility] LABORATORYCLIA [id number] [address] Platelet mean volume (Bld) [Entitic vol] 11.0 fL Normal 9.0-12.7 [facility] Comment on above: Order Comment: Speci men Type: BLOOD SPECIMENOrdering Facility: [facility] Address: [address] [place] [address] Performed By: #### 5 8410-2 ####[facility] LABORATORYCLIA [id number] [place] [address] [place] Platelets (Bld) [#/Vol] 361 10*3/uL Normal 150-400 [facility] Comment on above: Order Comment: Speci men Type: BLOOD SPECIMENOrdering Facility: [facility] Address: [address] [place] [address] Performed By: #### 5 8410-2 ####[facility]ORATORYCLIA [id number] [place] [address] [place] RBC (Bld) [#/Vol] 3.38 10*6/uL Low 4.20-6.00 [facility] Comment on above: Order Comment: Speci men Type: BLOOD SPECIMENOrdering Facility: [facility] Address: [address] [place] [address] Performed By: #### 5 8410-2 ####[facility] LABORATORYCLIA [id number] [address] OF [facility] WBC (Bld) [#/Vol] 9.02 10*3/uL Normal 3.70-11.00 [facility] Comment on above: Order Comment: Speci men Type: BLOOD SPECIMENOrdering Facility: [facility] Address: [address] [place] [address] Performed By: #### 5 8410-2 ####[facility] LABORATORYCLIA [id number] [address] [place] CONSULT PROGon 06-23-2021 CONSULT PROG Normal [facility] CONSULT PROG Normal [facility] Magnesium SerPl-mCncon 06-23 Magnesium [Mass/Vol] 2.4 mg/dL High 1.7-2.3 [facility] Comment on above: Order Comment: Speci men Type: BLOOD SPECIMENOrdering Facility: [facility] Address: [address] [place] [address] Performed By: #### 1 9123-9, 42035-4 ####[facility]ORATORYCLIA [id number] [address] [place] THERAPY NTon 06-23-2021 THERAPY NT Normal [facility] Vancomycin random [Mass/Vol] on 06-23-2021 Vancomycin [Mass/Vol] 22.8 ug/mL High 10.0-20.0 [facility] Comment on above: Order Comment: Speci men Type: BLOOD SPECIMENOrdering Facility: [facility] Address: [address] [address] Result Comment: Refe rence ranges and high/low indicator flags are provided as general guidelines only. The treating physician must determine appropriate target levels/dosing based on the specific clinical situation. Performed By: #### 4 091-5 ####[facility] LABORATORYCLIA [id number] [place] [address] [place] XR MOD BARIUM SWALLOW W SPEE Lore 06-23-2021 XR MOD BARIUM SWALLOW W SPEECH Normal [facility] Basic metabolic 2000 panelon 06-22-2021 Anion gap [Moles/Vol] 6 mmol/L Low 9-18 [facility] Comment on above: Order Comment: Speci men Type: BLOOD SPECIMENOrdering Facility: [facility] Address: [address] [address] Performed By: #### 2 432-, ####[facility] LABORATORYCLIA [id number] [place] [address] [place] Calcium [Mass/Vol] 8.5 mg/dL Normal 8.5-10.2 [facility] Comment on above: Order Comment: Speci men Type: BLOOD SPECIMENOrdering Facility: [facility] Address: [address] [address] Performed By: #### 2 432-2, ####[facility] LABORATORYCLIA [id number] [place] [address] [place] Chloride [Moles/Vol] 105 mmol/L Normal 97-105 [facility] Comment on above: Order Comment: Speci men Type: BLOOD SPECIMENOrdering Facility: [facility] Address: [address] [address] Performed By: #### 2 432-2, ####[facility] LABORATORYCLIA [id number] [place] [id number] [place] CO2 [Moles/Vol] 26 mmol/L Normal 22-30 [facility] Comment on above: Order Comment: Speci men Type: BLOOD SPECIMENOrdering Facility: [facility] Address: [address] [place] [address] Performed By: #### 2 432-2, ####[facility]ORATORYCLIA [id number] [place] [address] [place] Creatinine [Mass/Vol] 0.56 mg/dL Low 0.73-1.22 [facility] Comment on above: Order Comment: Speci men Type: BLOOD SPECIMENOrdering Facility: [facility] Address: [address] [place] [address] Performed By: #### 2 43205-08, ####[facility]ITALCLIA [id number] [address] STATES OF [facility] GFR/1.73 sq M.predicted MDRD (S/P/Bld) [Vol rate/Area] mL/min/{1.73_m2} Normal [facility] Comment on above: Order Comment: Shira feldman Type: BLOOD SPECIMENOrdering Facility: [facility] Address: [address] [place] [address] Result Comment: >60e GFR (Estimated GFR) Units [...] #### 2 4321-2, ####[facility]ORATORYCLIA [id number] [place] [id number] [place] Glucose [Mass/Vol] 120 mg/dL High 74-99 [facility] Comment on above: Order Comment: Speci men Type: BLOOD SPECIMENOrdering Facility: [facility] Address: [address] [place] [address] Result Comment: The [place] [employer] (ADA) provides guidance for cutoff [...] Standards of Medical Care in Diabetes 2016, [place] [employer]. Diabetes Care. 2016.39(Suppl 1). Performed By: #### 2 4320-06, ####[facility]ATORYCLIA [id number] [place] [address] [place] Potassium [Moles/Vol] 4.0 mmol/L Normal 3.7-5.1 [facility] Comment on above: Order Comment: Shira feldman Type: BLOOD SPECIMENOrdering Facility: [facility] Address: [address] [place] [address] Performed By: #### 2 ####[facility]ORATORYCLIA [id number] [place] [address] [place] Sodium [Moles/Vol] 137 mmol/L Normal 136-144 [facility] Comment on above: Order Comment: Speccara feldman Type: BLOOD SPECIMENOrdering Facility: [facility] Address: [address] [place] [address] Performed By: #### 2 4320-06, ####[facility]ORATORYCLIA [id number] [place] [address] [place] Urea nitrogen [Mass/Vol] 25 mg/dL High 9-24 [facility] Comment on above: Order Comment: Speci men Type: BLOOD SPECIMENOrdering Facility: [facility] Address: [address] [place] [address] Performed By: #### 2 4321-2, 75512-0 ####[facility]ORATORYCLIA [id number] [address] [place] CASE MANAGEMon 06-22-2021 CASE MANAGEM Normal [facility] CBC panel Auto (Bld)on 06-22 Erythrocyte distribution width (RBC) [Ratio] 16.0 % High 11.5-15.0 [facility] Comment on above: Order Comment: Speci men Type: BLOOD SPECIMENOrdering Facility: [facility] Address: [address] [place] [address] Performed By: #### 5 8410-2 ####[facility]ORATORYCLIA [id number] [address] [place] Hematocrit (Bld) [Volume fraction] 30.5 % Low 39.0-51.0 [facility] Comment on above: Order Comment: Speci men Type: BLOOD SPECIMENOrdering Facility: [facility] Address: [address] [place] [address] Performed By: #### 5 8410-2 ####[facility]ORATORYCLIA [id number] [address] [place] Hemoglobin (Bld) [Mass/Vol] 9.3 g/dL Low 13.0-17.0 [facility] Comment on above: Order Comment: Speci men Type: BLOOD SPECIMENOrdering Facility: [facility] Address: [address] [place] [address] Performed By: #### 5 8410-2 ####[facility]ORATORYCLIA [id number] [address] [place] MCH (RBC) [Entitic mass] 28.4 pg Normal 26.0-34.0 [facility] Comment on above: Order Comment: Speci men Type: BLOOD SPECIMENOrdering Facility: [facility] Address: [address] [place] [address] Performed By: #### 5 8410-2 ####[facility]ORATORYCLIA [id number] [address] MCHC (RBC) [Mass/Vol] 30.5 g/dL Normal 30.5-36.0 [facility] Comment on above: Order Comment: Speci men Type: BLOOD SPECIMENOrdering Facility: [facility] Address: [address] [place] [address] Performed By: #### 5 8410-2 ####[facility]ORATORYCLIA [id number] [address] MCV (RBC) [Entitic vol] 93.3 fL Normal 80.0-100.0 [facility] Comment on above: Order Comment: Speci men Type: BLOOD SPECIMENOrdering Facility: [facility] Address: [address] [place] [address] Performed By: #### 5 8410-2 ####[facility] LABORATORYCLIA [id number] [address] Nucleated RBC (Bld) [#/Vol] 10*3/uL Normal <0.01 [facility] Comment on above: Order Comment: Speci men Type: BLOOD SPECIMENOrdering Facility: [facility] Address: [address] [place] [address] Performed By: #### 5 8410-2 ####[facility] LABORATORYCLIA [id number] [address] Platelet mean volume (Bld) [Entitic vol] 11.5 fL Normal 9.0-12.7 [facility] Comment on above: Order Comment: Speci men Type: BLOOD SPECIMENOrdering Facility: [facility] Address: [address] [place] [address] Performed By: #### 5 8410-2 ####[facility]ORATORYCLIA [id number] [address] [place] Platelets (Bld) [#/Vol] 346 10*3/uL Normal 150-400 [facility] Comment on above: Order Comment: Speci men Type: BLOOD SPECIMENOrdering Facility: [facility] Address: [address] [place] [address] Performed By: #### 5 8410-2 ####[facility] LABORATORYCLIA [id number] [address] STATES OF [facility] RBC (Bld) [#/Vol] 3.27 10*6/uL Low 4.20-6.00 [facility] Comment on above: Order Comment: Speci men Type: BLOOD SPECIMENOrdering Facility: [facility] Address: [address] [place] [address] Performed By: #### 5 8410-2 ####[facility] LABORATORYCLIA [id number] [address] STATES OF [facility] WBC (Bld) [#/Vol] 9.44 10*3/uL Normal 3.70-11.00 [facility] Comment on above: Order Comment: Speci men Type: BLOOD SPECIMENOrdering Facility: [facility] Address: [address] [place] [address] Performed By: #### 5 8410-2 ####[facility]ORATORYCLIA [id number] [address] OF [place] HEMOGLOBIN (HGB)on Hemoglobin (Bld) [Mass/Vol] 9.7 g/dL Low 13.0-17.0 [facility] Comment on above: Order Comment: Speci men Type: BLOOD SPECIMENOrdering Facility: [facility] Address: [address] [place] [address] Performed By: #### H GB ####[facility]ORATORYCLIA [id number] [address] OF [facility] Magnesium SerPl-mCncon 06-22 Magnesium [Mass/Vol] 2.4 mg/dL High 1.7-2.3 [facility] Comment on above: Order Comment: Speci men Type: BLOOD SPECIMENOrdering Facility: [facility] Address: [address] [place] [address] Performed By: #### 2 4321-2, ####[facility]ORATORYCLIA [id number] [address] [place] THERAPY NTon 06-22-2021 THERAPY NT Normal [facility] THERAPY NT Normal [facility] aPTT PPPon 06-22-2021 aPTT Coag (PPP) [Time] 62.3 s High 23.0-32.4 [facility] Comment on above: Order Comment: Speci men Type: BLOOD SPECIMENOrdering Facility: [facility] Address: [address] [place] [address] Performed By: #### 1 4979-9 ####[facility]ATORYCLIA [id number] [address] [place] ALLIED HEALTHon 06-21-2021 ALLIED HEALTH Normal [facility] Basic metabolic 2000 panelon 06-21-2021 Anion gap [Moles/Vol] 8 mmol/L Low 9-18 [facility] Comment on above: Order Comment: Speci men Type: BLOOD SPECIMENOrdering Facility: [facility] Address: [address] [place] [address] Performed By: #### 2 432-2, ####[facility]ORATORYCLIA [id number] [place] [address] [place] Calcium [Mass/Vol] 8.2 mg/dL Low 8.5-10.2 [facility] Comment on above: Order Comment: Speci men Type: BLOOD SPECIMENOrdering Facility: [facility] Address: [address] [place] [address] Performed By: #### 2 4321-2, ####[facility] LABORATORYCLIA [id number] [address] [place] Chloride [Moles/Vol] 108 mmol/L High 97-105 [facility] Comment on above: Order Comment: Speci men Type: BLOOD SPECIMENOrdering Facility: [facility] Address: [address] [place] [address] Performed By: #### 2 432-2, ####[facility] LABORATORYCLIA [id number] [address] [place] CO2 [Moles/Vol] 24 mmol/L Normal 22-30 [facility] Comment on above: Order Comment: Speci men Type: BLOOD SPECIMENOrdering Facility: [facility] Address: [address] [place] [address] Performed By: #### 2 432-2, ####[facility] LABORATORYCLIA [id number] [address] [place] Creatinine [Mass/Vol] 0.61 mg/dL Low 0.73-1.22 [facility] Comment on above: Order Comment: Speci men Type: BLOOD SPECIMENOrdering Facility: [facility] Address: [address] [place] [address] Performed By: #### 2 43205-08, ####[facility] LABORATORYCLIA [id number] [address] [place] GFR/1.73 sq M.predicted MDRD (S/P/Bld) [Vol rate/Area] mL/min/{1.73_m2} Normal [facility] Comment on above: Order Comment: Speci men Type: BLOOD SPECIMENOrdering Facility: [facility] Address: [address] [place] [address] Result Comment: >60e GFR (Estimated GFR) Units [...] reflect actual GFR. Performed By: #### 2 ####[facility] LABORATORYCLIA [id number] [place] [address] [place] Glucose [Mass/Vol] 211 mg/dL High 74-99 [facility] Comment on above: Order Comment: Speci men Type: BLOOD SPECIMENOrdering Facility: [facility] Address: [address] [place] [address] Result Comment: The [place] [employer] (ADA) provides guidance for cutoff [...] Standards of Medical Care in Diabetes 2016, [place] [employer]. Diabetes Care. 2016.39(Suppl 1). Performed By: #### 2 ####[facility] LABORATORYCLIA [id number] [place] [address] [place] Potassium [Moles/Vol] 4.3 mmol/L Normal 3.7-5.1 [facility] Comment on above: Order Comment: Speci men Type: BLOOD SPECIMENOrdering Facility: [facility] Address: [address] [place] [address] Performed By: #### 2 ####[facility] LABORATORYCLIA [id number] [place] [address] [place] Sodium [Moles/Vol] 140 mmol/L Normal 136-144 [facility] Comment on above: Order Comment: Speci men Type: BLOOD SPECIMENOrdering Facility: [facility] Address: [address] [place], [place] [address] Performed By: #### 2 ####[facility] LABORATORYCLIA [id number] [address] [place] Urea nitrogen [Mass/Vol] 26 mg/dL High 9-24 [facility] Comment on above: Order Comment: Speci men Type: BLOOD SPECIMENOrdering Facility: [facility] Address: [address] [place] [address] Performed By: #### 2 4321-2, 58175-6 ####[facility] LABORATORYCLIA [id number] [address] CBC panel Auto (Bld)on 06-21 Erythrocyte distribution width (RBC) [Ratio] 16.1 % High 11.5-15.0 [facility] Comment on above: Order Comment: Speci men Type: BLOOD SPECIMENOrdering Facility: [facility] Address: [address] [place] [address] Performed By: #### 5 8410-2 ####[facility] LABORATORYCLIA [id number] [address] Hematocrit (Bld) [Volume fraction] 29.7 % Low 39.0-51.0 [facility] Comment on above: Order Comment: Speci men Type: BLOOD SPECIMENOrdering Facility: [facility] Address: [address] [place] [address] Performed By: #### 5 8410-2 ####[facility] LABORATORYCLIA [id number] [address] [place] Hemoglobin (Bld) [Mass/Vol] 9.2 g/dL Low 13.0-17.0 [facility] Comment on above: Order Comment: Speci men Type: BLOOD SPECIMENOrdering Facility: [facility] Address: [address] [place] [address] Performed By: #### 5 8410-2 ####[facility] LABORATORYCLIA [id number] [address] [place] MCH (RBC) [Entitic mass] 28.8 pg Normal 26.0-34.0 [facility] Comment on above: Order Comment: Speci men Type: BLOOD SPECIMENOrdering Facility: [facility] Address: [address] [place] [address] Performed By: #### 5 8410-2 ####[facility] LABORATORYCLIA [id number] [address] MCHC (RBC) [Mass/Vol] 31.0 g/dL Normal 30.5-36.0 [facility] Comment on above: Order Comment: Speci men Type: BLOOD SPECIMENOrdering Facility: [facility] Address: [address] [place] [address] Performed By: #### 5 8410-2 ####[facility] LABORATORYCLIA [id number] [address] [place] MCV (RBC) [Entitic vol] 93.1 fL Normal 80.0-100.0 [facility] Comment on above: Order Comment: Speci men Type: BLOOD SPECIMENOrdering Facility: [facility] Address: [address] [place] [address] Performed By: #### 5 8410-2 ####[facility] LABORATORYCLIA [id number] [address] Nucleated RBC (Bld) [#/Vol] 10*3/uL Normal <0.01 [facility] Comment on above: Order Comment: Speci men Type: BLOOD SPECIMENOrdering Facility: [facility] Address: [address] [place] [address] Performed By: #### 5 8410-2 ####[facility] LABORATORYCLIA [id number] [address] Platelet mean volume (Bld) [Entitic vol] 11.6 fL Normal 9.0-12.7 [facility] Comment on above: Order Comment: Speci men Type: BLOOD SPECIMENOrdering Facility: [facility] Address: [address] [place] [address] Performed By: #### 5 8410-2 ####[facility] LABORATORYCLIA [id number] [place] [address] [place] Platelets (Bld) [#/Vol] 347 10*3/uL Normal 150-400 [facility] Comment on above: Order Comment: Speci men Type: BLOOD SPECIMENOrdering Facility: [facility] Address: [address] [place] [address] Performed By: #### 5 8410-2 ####[facility] LABORATORYCLIA [id number] [place] [address] [place] RBC (Bld) [#/Vol] 3.19 10*6/uL Low 4.20-6.00 [facility] Comment on above: Order Comment: Speci men Type: BLOOD SPECIMENOrdering Facility: [facility] Address: [address] [place] [address] Performed By: #### 5 8410-2 ####[facility] LABORATORYCLIA [id number] [address] STATES [facility] WBC (Bld) [#/Vol] 10.29 10*3/uL Normal 3.70-11.00 [facility] Comment on above: Order Comment: Speci men Type: BLOOD SPECIMENOrdering Facility: [facility] Address: [address] [place] [address] Performed By: #### 5 8410-2 ####[facility] LABORATORYCLIA [id number] [address] OF [facility] CONSULT PROGon 06-21-2021 CONSULT PROG Normal [facility] CONSULT PROG Normal [facility] Magnesium SerPl-mCncon 06-21 Magnesium [Mass/Vol] 2.5 mg/dL High 1.7-2.3 [facility] Comment on above: Order Comment: Speci men Type: BLOOD SPECIMENOrdering Facility: [facility] Address: [address] [place] [address] Performed By: #### 2 4321-2, 25245-1 ####[facility] LABORATORYCLIA [id number] [address] [place] NUTRITIONon 06-21-2021 NUTRITION Normal [facility] XR CHEST 1V FRONTALon 2021 XR CHEST 1V FRONTAL Normal [facility] aPTT PPPon 06-21-2021 aPTT Coag (PPP) [Time] 68.5 s High 23.0-32.4 [facility] Comment on above: Order Comment: Speci men Type: BLOOD SPECIMENOrdering Facility: [facility] Address: [address] [place] [address] Performed By: #### 1 4979-9 ####[facility] LABORATORYCLIA [id number] [address] STATES [facility] aPTT Coag (PPP) [Time] 57.8 s High 23.0-32.4 [facility] Comment on above: Order Comment: Speci men Type: BLOOD SPECIMENOrdering Facility: [facility] Address: [address] [place] [address] Performed By: #### 1 4979-9 ####[facility] LABORATORYCLIA [id number] [place] [address] [place] Basic metabolic 2000 panelon 06-20-2021 Anion gap [Moles/Vol] 9 mmol/L Normal 9-18 [facility] Comment on above: Order Comment: Speci men Type: BLOOD SPECIMENOrdering Facility: [facility] Address: [address] [place] [address] Performed By: #### 2 4321-2, 11633-3 ####[facility] LABORATORYCLIA [id number] [place] [address] [place] Calcium [Mass/Vol] 8.3 mg/dL Low 8.5-10.2 [facility] Comment on above: Order Comment: Speci men Type: BLOOD SPECIMENOrdering Facility: [facility] Address: [address] [place] [address] Performed By: #### 2 4321-2, 83453-1 ####[facility] LABORATORYCLIA [id number] [address] OF [facility] Chloride [Moles/Vol] 111 mmol/L High 97-105 [facility] Comment on above: Order Comment: Speci men Type: BLOOD SPECIMENOrdering Facility: [facility] Address: [address] [place] [address] Performed By: #### 2 4321-2, ####[facility] LABORATORYCLIA [id number] [address] [place] CO2 [Moles/Vol] 24 mmol/L Normal 22-30 [facility] Comment on above: Order Comment: Speci men Type: BLOOD SPECIMENOrdering Facility: [facility] Address: [address] [place] [address] Performed By: #### 2 4321-2, ####[facility] LABORATORYCLIA [id number] [address] STATES OF [facility] Creatinine [Mass/Vol] 0.64 mg/dL Low 0.73-1.22 [facility] Comment on above: Order Comment: Speci men Type: BLOOD SPECIMENOrdering Facility: [facility] Address: [address] [place] [address] Performed By: #### 2 4321-2, ####[facility] LABORATORYCLIA [id number] [address] [place] GFR/1.73 sq M.predicted MDRD (S/P/Bld) [Vol rate/Area] mL/min/{1.73_m2} Normal [facility] Comment on above: Order Comment: Speci men Type: BLOOD SPECIMENOrdering Facility: [facility] Address: [address] [place] [address] Result Comment: >60e GFR (Estimated GFR) Units [...] actual GFR. Performed By: #### 2 432-, ####[facility] LABORATORYCLIA [id number] [place] [address] [place] Glucose [Mass/Vol] 114 mg/dL High 74-99 [facility] Comment on above: Order Comment: Shira feldman Type: BLOOD SPECIMENOrdering Facility: [facility] Address: [address] [id number] Result Comment: The [place] [employer] (ADA) provides guidance for cutoff [...] Standards of Medical Care in Diabetes 2016, [place] [employer]. Diabetes Care. 2016.39(Suppl 1). Performed By: #### 2 432-, ####[facility] LABORATORYCLIA [id number] [place] [address] [place] Potassium [Moles/Vol] 4.1 mmol/L Normal 3.7-5.1 [facility] Comment on above: Order Comment: Shira feldman Type: BLOOD SPECIMENOrdering Facility: [facility] Address: [address] [place] [address] Performed By: #### 2 432-, ####[facility] LABORATORYCLIA [id number] [place] [id number] [place] Sodium [Moles/Vol] 144 mmol/L Normal 136-144 [facility] Comment on above: Order Comment: Shira feldman Type: BLOOD SPECIMENOrdering Facility: [facility] Address: [address] [place] [address] Performed By: #### 2 4321-2, 57547-0 ####[facility] LABORATORYCLIA [id number] [address] Urea nitrogen [Mass/Vol] 27 mg/dL High 9-24 [facility] Comment on above: Order Comment: Speci men Type: BLOOD SPECIMENOrdering Facility: [facility] Address: [address] [place] [address] Performed By: #### 2 4321-2, ####[facility] LABORATORYCLIA [id number] [address] CASE MANAGEMon 06-20-2021 CASE MANAGEM Normal [facility] CBC panel Auto (Bld)on 06-20 Erythrocyte distribution width (RBC) [Ratio] 15.9 % High 11.5-15.0 [facility] Comment on above: Order Comment: Speci men Type: BLOOD SPECIMENOrdering Facility: [facility] Address: [address] [place] [address] Performed By: #### 5 8410-2 ####[facility] LABORATORYCLIA [id number] [address] STATES OF [facility] Hematocrit (Bld) [Volume fraction] 31.0 % Low 39.0-51.0 [facility] Comment on above: Order Comment: Speci men Type: BLOOD SPECIMENOrdering Facility: [facility] Address: [address] [place] [address] Performed By: #### 5 8410-2 ####[facility] LABORATORYCLIA [id number] [address] [place] Hemoglobin (Bld) [Mass/Vol] 9.2 g/dL Low 13.0-17.0 [facility] Comment on above: Order Comment: Speci men Type: BLOOD SPECIMENOrdering Facility: [facility] Address: [address] [place] [address] Performed By: #### 5 8410-2 ####[facility] LABORATORYCLIA [id number] [address] MCH (RBC) [Entitic mass] 27.4 pg Normal 26.0-34.0 [facility] Comment on above: Order Comment: Speci men Type: BLOOD SPECIMENOrdering Facility: [facility] Address: [address] [place] [address] Performed By: #### 5 8410-2 ####[facility] LABORATORYCLIA [id number] [address] MCHC (RBC) [Mass/Vol] 29.7 g/dL Low 30.5-36.0 [facility] Comment on above: Order Comment: Speci men Type: BLOOD SPECIMENOrdering Facility: [facility] Address: [address] [place] [address] Performed By: #### 5 8410-2 ####[facility] LABORATORYCLIA [id number] [address] MCV (RBC) [Entitic vol] 92.3 fL Normal 80.0-100.0 [facility] Comment on above: Order Comment: Speci men Type: BLOOD SPECIMENOrdering Facility: [facility] Address: [address] [place] [address] Performed By: #### 5 8410-2 ####[facility] LABORATORYCLIA [id number] [address] Nucleated RBC (Bld) [#/Vol] 10*3/uL Normal <0.01 [facility] Comment on above: Order Comment: Speci men Type: BLOOD SPECIMENOrdering Facility: [facility] Address: [address] [place] [address] Performed By: #### 5 8410-2 ####[facility] LABORATORYCLIA [id number] [address] Platelet mean volume (Bld) [Entitic vol] 11.5 fL Normal 9.0-12.7 [facility] Comment on above: Order Comment: Speci men Type: BLOOD SPECIMENOrdering Facility: [facility] Address: [address] [place] [address] Performed By: #### 5 8410-2 ####[facility] LABORATORYCLIA [id number] [address] OF [facility] Platelets (Bld) [#/Vol] 343 10*3/uL Normal 150-400 [facility] Comment on above: Order Comment: Speci men Type: BLOOD SPECIMENOrdering Facility: [facility] Address: [address] [place] [address] Performed By: #### 5 8410-2 ####[facility] LABORATORYCLIA [id number] [address] OF [facility] RBC (Bld) [#/Vol] 3.36 10*6/uL Low 4.20-6.00 [facility] Comment on above: Order Comment: Speci men Type: BLOOD SPECIMENOrdering Facility: [facility] Address: [address] [place] [address] Performed By: #### 5 8410-2 ####[facility] LABORATORYCLIA [id number] [address] OF [facility] WBC (Bld) [#/Vol] 10.71 10*3/uL Normal 3.70-11.00 [facility] Comment on above: Order Comment: Speci men Type: BLOOD SPECIMENOrdering Facility: [facility] Address: [address] [place] [address] Performed By: #### 5 8410-2 ####[facility] LABORATORYCLIA [id number] [address] CONSULT PROGon 06-20-2021 CONSULT PROG Normal [facility] HEMOGLOBIN (HGB)on 2 Hemoglobin (Bld) [Mass/Vol] 9.7 g/dL Low 13.0-17.0 [facility] Comment on above: Order Comment: Speci men Type: BLOOD SPECIMENOrdering Facility: [facility] Address: [address] [place] [address] Performed By: #### H GB ####[facility] LABORATORYCLIA [id number] [address] [place] Magnesium SerPl-mCncon 06-20 Magnesium [Mass/Vol] 2.5 mg/dL High 1.7-2.3 [facility] Comment on above: Order Comment: Speci men Type: BLOOD SPECIMENOrdering Facility: [facility] Address: [address] [place] [address] Performed By: #### 2 4321-2, 84506-8 ####[facility] LABORATORYCLIA [id number] [address] OF [facility] NURSING PROGon 06-20-2021 NURSING PROG Normal [facility] THERAPY NTon 06-20-2021 THERAPY NT Normal [facility] aPTT PPPon 06-20-2021 aPTT Coag (PPP) [Time] 93.5 s High 23.0-32.4 [facility] Comment on above: Order Comment: Speci men Type: BLOOD SPECIMENOrdering Facility: [facility] Address: [address] [place] [address] Performed By: #### 1 4979-9 ####[facility] LABORATORYCLIA [id number] [address] aPTT Coag (PPP) [Time] 47.1 s High 23.0-32.4 [facility] Comment on above: Order Comment: Speci men Type: BLOOD SPECIMENOrdering Facility: [facility] Address: [address] [place] [address] Performed By: #### 1 4979-9 ####[facility] LABORATORYCLIA [id number] [address] [place] Basic metabolic 2000 panelon 06-19-2021 Anion gap [Moles/Vol] 7 mmol/L Low 9-18 [facility] Comment on above: Order Comment: Speci men Type: BLOOD SPECIMENOrdering Facility: [facility] Address: [address] [address] Performed By: #### 2 4321-2 ####[facility] LABORATORYCLIA [id number] [place] [address] [place] Calcium [Mass/Vol] 8.1 mg/dL Low 8.5-10.2 [facility] Comment on above: Order Comment: Speci men Type: BLOOD SPECIMENOrdering Facility: [facility] Address: [address] [address] Performed By: #### 2 4321-2 ####[facility] LABORATORYCLIA [id number] [place] [address] [place] Chloride [Moles/Vol] 111 mmol/L High 97-105 [facility] Comment on above: Order Comment: Speci men Type: BLOOD SPECIMENOrdering Facility: [facility] Address: [address] [address] Performed By: #### 2 4321-2 ####[facility] LABORATORYCLIA [id number] [place] [address] [place] CO2 [Moles/Vol] 24 mmol/L Normal 22-30 [facility] Comment on above: Order Comment: Speci men Type: BLOOD SPECIMENOrdering Facility: [facility] Address: [address] [place] [address] Performed By: #### 2 4321-2 ####[facility] LABORATORYCLIA [id number] [place] [address] [place] Creatinine [Mass/Vol] 0.71 mg/dL Low 0.73-1.22 [facility] Comment on above: Order Comment: Speci men Type: BLOOD SPECIMENOrdering Facility: [facility] Address: [address] [address] Performed By: #### 2 4321-2 ####[facility] LABORATORYCLIA [id number] [place] [address] [place] GFR/1.73 sq M.predicted MDRD (S/P/Bld) [Vol rate/Area] mL/min/{1.73_m2} Normal [facility] Comment on above: Order Comment: Shira feldman Type: BLOOD SPECIMENOrdering Facility: [facility] Address: [address] [place] [address] Result Comment: >60e GFR (Estimated GFR) Units [...] #### 2 4321-2 ####[facility] LABORATORYCLIA [id number] [place] [address] [place] Glucose [Mass/Vol] 110 mg/dL High 74-99 [facility] Comment on above: Order Comment: Shira feldman Type: BLOOD SPECIMENOrdering Facility: [facility] Address: [address] [place] [address] Result Comment: The [place] [employer] (ADA) provides guidance for cutoff [...] Standards of Medical Care in Diabetes 2016, [place] [employer]. Diabetes Care. 2016.39(Suppl 1). Performed By: #### 2 4321-2 ####[facility] LABORATORYCLIA [id number] [place] [address] [place] Potassium [Moles/Vol] 3.7 mmol/L Normal 3.7-5.1 [facility] Comment on above: Order Comment: Speci men Type: BLOOD SPECIMENOrdering Facility: [facility] Address: [address] [place] [address] Performed By: #### 2 4321-2 ####[facility] LABORATORYCLIA [id number] [address] STATES [facility] Sodium [Moles/Vol] 142 mmol/L Normal 136-144 [facility] Comment on above: Order Comment: Speci men Type: BLOOD SPECIMENOrdering Facility: [facility] Address: [address] [place] [address] Performed By: #### 2 4321-2 ####[facility] LABORATORYCLIA [id number] [address] Urea nitrogen [Mass/Vol] 26 mg/dL High 9-24 [facility] Comment on above: Order Comment: Speci men Type: BLOOD SPECIMENOrdering Facility: [facility] Address: [address] [place] [address] Performed By: #### 2 4321-2 ####[facility] LABORATORYCLIA [id number] [address] CBC panel Auto (Bld)on 06-19 Erythrocyte distribution width (RBC) [Ratio] 15.7 % High 11.5-15.0 [facility] Comment on above: Order Comment: Speci men Type: BLOOD SPECIMENOrdering Facility: [facility] Address: [address] [place] [address] Performed By: #### 5 8410-2 ####[facility] LABORATORYCLIA [id number] [address] Hematocrit (Bld) [Volume fraction] 30.9 % Low 39.0-51.0 [facility] Comment on above: Order Comment: Speci men Type: BLOOD SPECIMENOrdering Facility: [facility] Address: [address] [place] [address] Performed By: #### 5 8410-2 ####[facility] LABORATORYCLIA [id number] [address] OF [facility] Hemoglobin (Bld) [Mass/Vol] 9.5 g/dL Low 13.0-17.0 [facility] Comment on above: Order Comment: Speci men Type: BLOOD SPECIMENOrdering Facility: [facility] Address: [address] [place] [address] Performed By: #### 5 8410-2 ####[facility] LABORATORYCLIA [id number] [address] MCH (RBC) [Entitic mass] 28.4 pg Normal 26.0-34.0 [facility] Comment on above: Order Comment: Speci men Type: BLOOD SPECIMENOrdering Facility: [facility] Address: [address] [place] [address] Performed By: #### 5 8410-2 ####[facility] LABORATORYCLIA [id number] [address] MCHC (RBC) [Mass/Vol] 30.7 g/dL Normal 30.5-36.0 [facility] Comment on above: Order Comment: Speci men Type: BLOOD SPECIMENOrdering Facility: [facility] Address: [address] [place] [address] Performed By: #### 5 8410-2 ####[facility] LABORATORYCLIA [id number] [address] MCV (RBC) [Entitic vol] 92.2 fL Normal 80.0-100.0 [facility] Comment on above: Order Comment: Speci men Type: BLOOD SPECIMENOrdering Facility: [facility] Address: [address] [place] [address] Performed By: #### 5 8410-2 ####[facility] LABORATORYCLIA [id number] [address] Nucleated RBC (Bld) [#/Vol] 10*3/uL Normal <0.01 [facility] Comment on above: Order Comment: Speci men Type: BLOOD SPECIMENOrdering Facility: [facility] Address: [address] [address] Performed By: #### 5 8410-2 ####[facility] LABORATORYCLIA [id number] [address] Platelet mean volume (Bld) [Entitic vol] 11.7 fL Normal 9.0-12.7 [facility] Comment on above: Order Comment: Speci men Type: BLOOD SPECIMENOrdering Facility: [facility] Address: [address] [place] [address] Performed By: #### 5 8410-2 ####[facility] LABORATORYCLIA [id number] [address] [place] Platelets (Bld) [#/Vol] 323 10*3/uL Normal 150-400 [facility] Comment on above: Order Comment: Speci men Type: BLOOD SPECIMENOrdering Facility: [facility] Address: [address] [place] [address] Performed By: #### 5 8410-2 ####[facility] LABORATORYCLIA [id number] [place] [address] [place] RBC (Bld) [#/Vol] 3.35 10*6/uL Low 4.20-6.00 [facility] Comment on above: Order Comment: Speci men Type: BLOOD SPECIMENOrdering Facility: [facility] Address: [address] [place], [place] [address] Performed By: #### 5 8410-2 ####[facility] LABORATORYCLIA [id number] [address] [place] WBC (Bld) [#/Vol] 9.53 10*3/uL Normal 3.70-11.00 [facility] Comment on above: Order Comment: Speci men Type: BLOOD SPECIMENOrdering Facility: [facility] Address: [address] [place] [address] Performed By: #### 5 8410-2 ####[facility]ATORYCLIA [id number] [address] [place] HEMOGLOBIN (HGB)on Hemoglobin (Bld) [Mass/Vol] 9.7 g/dL Low 13.0-17.0 [facility] Comment on above: Order Comment: Speci men Type: BLOOD SPECIMENOrdering Facility: [facility] Address: [address] [place] [address] Performed By: #### H GB ####[facility] LABORATORYCLIA [id number] [address] [place] Magnesium SerPl-mCncon 06-19 Magnesium [Mass/Vol] 2.5 mg/dL High 1.7-2.3 [facility] Comment on above: Order Comment: Speci men Type: BLOOD SPECIMENOrdering Facility: [facility] Address: [address] [place] [address] Performed By: #### 1 9123-9, 2777-1 ####[facility]ORATORYCLIA [id number] [address] [place] NURSING PROGon 06-19-2021 NURSING PROG Normal [facility] Phosphate SerPl-mCncon 06-19 Phosphate [Mass/Vol] 2.6 mg/dL Low 2.7-4.8 [facility] Comment on above: Order Comment: Speci men Type: BLOOD SPECIMENOrdering Facility: [facility] Address: [address] [place] [address] Performed By: #### 1 9123-9, 2777-1 ####[facility] LABORATORYCLIA [id number] [address] [place] aPTT PPPon 06-19-2021 aPTT Coag (PPP) [Time] 61.9 s High 23.0-32.4 [facility] Comment on above: Order Comment: Speci men Type: BLOOD SPECIMENOrdering Facility: [facility] Address: [address] [place] [address] Performed By: #### 1 4979-9 ####[facility]ORATORYCLIA [id number] [address] [place] aPTT Coag (PPP) [Time] 68.6 s High 23.0-32.4 [facility] Comment on above: Order Comment: Speci men Type: BLOOD SPECIMENOrdering Facility: [facility] Address: [address] [place] [address] Performed By: #### 1 4979-9 ####[facility] LABORATORYCLIA [id number] [address] STATES OF [facility] aPTT Coag (PPP) [Time] 83.2 s High 23.0-32.4 [facility] Comment on above: Order Comment: Speci men Type: BLOOD SPECIMENOrdering Facility: [facility] Address: [address] [place] [address] Performed By: #### 1 4979-9 ####[facility]ORATORYCLIA [id number] [place] [address] [place] Basic metabolic 2000 panelon 06-18-2021 Anion gap [Moles/Vol] 7 mmol/L Low 9-18 [facility] Comment on above: Order Comment: Speci men Type: BLOOD SPECIMENOrdering Facility: [facility] Address: [address] [place] [address] Performed By: #### 2 4321-2, 12965-6, 2777-1 ####[facility]ORATORYCLIA [id number] [place] [address] [place] Calcium [Mass/Vol] 8.2 mg/dL Low 8.5-10.2 [facility] Comment on above: Order Comment: Speci men Type: BLOOD SPECIMENOrdering Facility: [facility] Address: [address] [place] [address] Performed By: #### 2 4321-2, 40031-9, 2777-1 ####[facility]ORATORYCLIA [id number] [address] [place] Chloride [Moles/Vol] 115 mmol/L High 97-105 [facility] Comment on above: Order Comment: Speci men Type: BLOOD SPECIMENOrdering Facility: [facility] Address: [address] [place], [place] [address] Performed By: #### 2 4321-2, , 2776-05 ####[facility] LABORATORYCLIA [id number] [place] [address] [place] CO2 [Moles/Vol] 23 mmol/L Normal 22-30 [facility] Comment on above: Order Comment: Speci men Type: BLOOD SPECIMENOrdering Facility: [facility] Address: [address] [place], [place] [address] Performed By: #### 2 4321-2, , 2776-05 ####[facility]ORATORYCLIA [id number] [address] [place] Creatinine [Mass/Vol] 0.70 mg/dL Low 0.73-1.22 [facility] Comment on above: Order Comment: Speci men Type: BLOOD SPECIMENOrdering Facility: [facility] Address: [address] [place], [place] [address] Performed By: #### 2 4321-2, , 2776-05 ####[facility]ORATORYCLIA [id number] [address] [place] GFR/1.73 sq M.predicted MDRD (S/P/Bld) [Vol rate/Area] mL/min/{1.73_m2} Normal [facility] Comment on above: Order Comment: Speci men Type: BLOOD SPECIMENOrdering Facility: [facility] Address: [address] [place], [place] [address] Result Comment: >60e GFR (Estimated GFR) Units [...] 4321-2, , 2776-05 ####[facility]ORATORYCLIA [id number] [place] [address] [place] Glucose [Mass/Vol] 105 mg/dL High 74-99 [facility] Comment on above: Order Comment: Shira feldman Type: BLOOD SPECIMENOrdering Facility: [facility] Address: [address] [place], [place] [address] Result Comment: The [place] [employer] (ADA) provides guidance for cutoff [...] Standards of Medical Care in Diabetes 2016, [place] [employer]. Diabetes Care. 2016.39(Suppl 1). Performed By: #### 2 4321-2, , 2776-05 ####[facility]ORATORYCLIA [id number] [place] [address] [place] Potassium [Moles/Vol] 4.1 mmol/L Normal 3.7-5.1 [facility] Comment on above: Order Comment: Shira feldman Type: BLOOD SPECIMENOrdering Facility: [facility] Address: [address] [place] [address] Performed By: #### 2 4321-2, , 2776-05 ####[facility]ORATORYCLIA [id number] [place] [address] [place] Sodium [Moles/Vol] 145 mmol/L High 136-144 [facility] Comment on above: Order Comment: Speci men Type: BLOOD SPECIMENOrdering Facility: [facility] Address: [address] [place] [address] Performed By: #### 2 4321-2, , 27711-04 ####[facility]ORATORYCLIA [id number] [address] STATES [facility] Urea nitrogen [Mass/Vol] 27 mg/dL High 9-24 [facility] Comment on above: Order Comment: Speci men Type: BLOOD SPECIMENOrdering Facility: [facility] Address: [address] [place] [address] Performed By: #### 2 4321-2, , 27711-04 ####[facility] LABORATORYCLIA [id number] [address] STATES OF [facility] CALCIUM IONIZED Bon 06-18-19 Calcium.ionized (BldV) [Mass/Vol] 1.22 mmol/L Normal 1.08-1.30 [facility] Comment on above: Order Comment: Speci men Type: BLOOD SPECIMENOrdering Facility: [facility] Address: [address] [place] [address] Performed By: #### I CA ####[facility]ITALCL[facility] [id number] [address] STATES [facility] Calcium.ionized adjusted to pH 7.4 (Bld) [Moles/Vol] 1.23 mmol/L Normal 1.08-1.30 [facility] Comment on above: Order Comment: Speci men Type: BLOOD SPECIMENOrdering Facility: [facility] Address: [address] [place] [address] Performed By: #### I CA ####[facility] LABORATORYCLIA [id number] [address] STATES OF [facility] CBC panel Auto (Bld)on 06-18 Erythrocyte distribution width (RBC) [Ratio] 15.8 % High 11.5-15.0 [facility] Comment on above: Order Comment: Speci men Type: BLOOD SPECIMENOrdering Facility: [facility] Address: [address] [place], [place] [address] Performed By: #### 5 8410-2 ####[facility] LABORATORYCLIA [id number] [address] Hematocrit (Bld) [Volume fraction] 29.5 % Low 39.0-51.0 [facility] Comment on above: Order Comment: Speci men Type: BLOOD SPECIMENOrdering Facility: [facility] Address: [address] [place] [address] Performed By: #### 5 8410-2 ####[facility]ORATORYCLIA [id number] [address] Hemoglobin (Bld) [Mass/Vol] 8.8 g/dL Low 13.0-17.0 [facility] Comment on above: Order Comment: Speci men Type: BLOOD SPECIMENOrdering Facility: [facility] Address: [address] [place] [address] Performed By: #### 5 8410-2 ####[facility]ORATORYCLIA [id number] [address] MCH (RBC) [Entitic mass] 27.4 pg Normal 26.0-34.0 [facility] Comment on above: Order Comment: Speci men Type: BLOOD SPECIMENOrdering Facility: [facility] Address: [address] [place] [address] Performed By: #### 5 8410-2 ####[facility]ORATORYCLIA [id number] [address] STATES OF [facility] MCHC (RBC) [Mass/Vol] 29.8 g/dL Low 30.5-36.0 [facility] Comment on above: Order Comment: Speci men Type: BLOOD SPECIMENOrdering Facility: [facility] Address: [address] [place] [address] Performed By: #### 5 8410-2 ####[facility] LABORATORYCLIA [id number] [address] MCV (RBC) [Entitic vol] 91.9 fL Normal 80.0-100.0 [facility] Comment on above: Order Comment: Speci men Type: BLOOD SPECIMENOrdering Facility: [facility] Address: [facility] [place] [address] Performed By: #### 5 8410-2 ####[facility] LABORATORYCLIA [id number] [address] [place] Nucleated RBC (Bld) [#/Vol] 10*3/uL Normal <0.01 [facility] Comment on above: Order Comment: Speci men Type: BLOOD SPECIMENOrdering Facility: [facility] Address: [address] [place] [address] Performed By: #### 5 8410-2 ####[facility]ORATORYCLIA [id number] [address] [place] Platelet mean volume (Bld) [Entitic vol] 11.9 fL Normal 9.0-12.7 [facility] Comment on above: Order Comment: Speci men Type: BLOOD SPECIMENOrdering Facility: [facility] Address: [address] [place] [address] Performed By: #### 5 8410-2 ####[facility]ORATORYCLIA [id number] [address] [place] Platelets (Bld) [#/Vol] 291 10*3/uL Normal 150-400 [facility] Comment on above: Order Comment: Speci men Type: BLOOD SPECIMENOrdering Facility: [facility] Address: [address] [place], [place] [address] Performed By: #### 5 8410-2 ####[facility]ORATORYCLIA [id number] [address] [place] RBC (Bld) [#/Vol] 3.21 10*6/uL Low 4.20-6.00 [facility] Comment on above: Order Comment: Speci men Type: BLOOD SPECIMENOrdering Facility: [facility] Address: [address] [place], [place] [address] Performed By: #### 5 8410-2 ####[facility]ORATORYCLIA [id number] [address] [place] WBC (Bld) [#/Vol] 10.19 10*3/uL Normal 3.70-11.00 [facility] Comment on above: Order Comment: Speci men Type: BLOOD SPECIMENOrdering Facility: [facility] Address: [address] [place] [address] Performed By: #### 5 8410-2 ####[facility]ORATORYCLIA [id number] [address] [place] FERRITIN BLDon 06-18-2021 Ferritin [Mass/Vol] 600.9 ng/mL High 30.3-565.7 [facility] Comment on above: Order Comment: Speci men Type: BLOOD SPECIMENOrdering Facility: [facility] Address: [address] [place] [address] Performed By: #### S ERFOL, IRON, FERR ####[facility]ORATORYCLIA [id number] [address] FOLATE SERUMon 06-18-2021 Folate [Mass/Vol] 14.3 ng/mL Normal >4.7 [facility] Comment on above: Order Comment: Speci men Type: BLOOD SPECIMENOrdering Facility: [facility] Address: [address] [place] [address] Performed By: #### S ERFOL, IRON, FERR ####[facility]ORATORYCLIA [id number] [address] Gas and Carbon monoxide pane l (BldV)on 06-18-2021 Base excess Calc (BldV) [Moles/Vol] 0.5 mmol/L Normal 0-2 [facility] Comment on above: Order Comment: Speci men Type: VENOUS BLOOD SPECIMENOrdering Facility: [facility] Address: [address] [place] [address] Performed By: #### 2 4344-4 ####[facility]ORATORYCLIA [id number] [address] Body temperature 97.34 [degF] Normal [facility] Comment on above: Order Comment: Speci men Type: VENOUS BLOOD SPECIMENOrdering Facility: [facility] Address: [address] [place] [address] Performed By: #### 2 4344-4 ####[facility]ORATORYCLIA [id number] [address] OF [facility] CALCIUM IONIZED, PH CORRECTED 1.26 mmol/L Normal 1.08-1.30 [facility] Comment on above: Order Comment: Speci men Type: VENOUS BLOOD SPECIMENOrdering Facility: [facility] Address: [address] [place] [address] Performed By: #### 2 4344-4 ####[facility]ORATORYCLIA [id number] [address] [place] Calcium.ionized (BldV) [Mass/Vol] 1.25 mmol/L Normal 1.08-1.30 [facility] Comment on above: Order Comment: Speci men Type: VENOUS BLOOD SPECIMENOrdering Facility: [facility] Address: [address] [place] [address] Performed By: #### 2 4344-4 ####[facility]ORATORYCLIA [id number] [address] [place] Carboxyhemoglobin (BldV) [Mass fraction] 1.5 % Normal 0.0-2.0 [facility] Comment on above: Order Comment: Speci men Type: VENOUS BLOOD SPECIMENOrdering Facility: [facility] Address: [address] [place] [address] Result Comment: Carb oxyhemoglobin Reference Range for Smokers: 2.0-8.0% Performed By: #### 2 4344-4 ####[facility]ORATORYCLIA [id number] [address] [place] CO2 (BldV) [Partial pressure] 38 mm[Hg] Low 42-55 [facility] Comment on above: Order Comment: Speci men Type: VENOUS BLOOD SPECIMENOrdering Facility: [facility] Address: [address] [place] [address] Performed By: #### 2 4344-4 ####[facility] LABORATORYCLIA [id number] [address] CO2 [Moles/Vol] 22.9 mmol/L Low 25-29 [facility] Comment on above: Order Comment: Speci men Type: VENOUS BLOOD SPECIMENOrdering Facility: [facility] Address: [address] [place] [address] Performed By: #### 2 4344-4 ####[facility]ORATORYCLIA [id number] [address] CO2 adjusted to patient's actual temperature (BldV) [Partial pressure] 37 mmHg Low 42-55 [facility] Comment on above: Order Comment: Speci men Type: VENOUS BLOOD SPECIMENOrdering Facility: [facility] Address: [address] [place] [address] Performed By: #### 2 4344-4 ####[facility]ORATORYCLIA [id number] [address] STATES [facility] Glucose [Mass/Vol] 103 mg/dL Normal 60-105 [facility] Comment on above: Order Comment: Speci men Type: VENOUS BLOOD SPECIMENOrdering Facility: [facility] Address: [address] [place] [address] Performed By: #### 2 4344-4 ####[facility]ATORYCLIA [id number] [address] [place] HCO3 (Bld) [Moles/Vol] 24.4 mmol/L Normal 24-28 [facility] Comment on above: Order Comment: Speci men Type: VENOUS BLOOD SPECIMENOrdering Facility: [facility] Address: [address] [place] [address] Performed By: #### 2 4344-4 ####[facility] LABORATORYCLIA [id number] [place] [address] [place] Hematocrit (Bld) [Volume fraction] 28.7 % Low 39.0-51.0 [facility] Comment on above: Order Comment: Speci men Type: VENOUS BLOOD SPECIMENOrdering Facility: [facility] Address: [address] [place] [address] Performed By: #### 2 4344-4 ####[facility] LABORATORYCLIA [id number] [place] [address] [place] Hemoglobin (Bld) [Mass/Vol] 9.3 g/dL Low 13.0-17.0 [facility] Comment on above: Order Comment: Speci men Type: VENOUS BLOOD SPECIMENOrdering Facility: [facility] Address: [address] [place] [address] Performed By: #### 2 4344-4 ####[facility]ORATORYCLIA [id number] [address] [place] Methemoglobin (Bld) [Mass fraction] % Normal 0.0-1.5 [facility] Comment on above: Order Comment: Speci men Type: VENOUS BLOOD SPECIMENOrdering Facility: [facility] Address: [address] [place] [address] Performed By: #### 2 4344-4 ####[facility]ATORYCLIA [id number] [address] [place] O2 THERAPY Ventilator Normal [facility] Comment on above: Order Comment: Speci men Type: VENOUS BLOOD SPECIMENOrdering Facility: [facility] Address: [address] [place] [address] Performed By: #### 2 4344-4 ####[facility]ORATORYCLIA [id number] [address] [place] Oxygen (BldV) [Partial pressure] 37 mm[Hg] Normal 35-45 [facility] Comment on above: Order Comment: Speci men Type: VENOUS BLOOD SPECIMENOrdering Facility: [facility] Address: [address] [place] [address] Performed By: #### 2 4344-4 ####[facility]ORATORYCLIA [id number] [address] [place] Oxygen adjusted to patient's actual temperature (BldV) [Partial pressure] 35.1 mmHg Normal 35-45 [facility] Comment on above: Order Comment: Speci men Type: VENOUS BLOOD SPECIMENOrdering Facility: [facility] Address: [address] [place] [address] Performed By: #### 2 4344-4 ####[facility]ATORYCLIA [id number] [address] [place] Oxygen saturation in Blood 67.1 % Normal 60-85 [facility] Comment on above: Order Comment: Speci men Type: VENOUS BLOOD SPECIMENOrdering Facility: [facility] Address: [address] [place] [address] Performed By: #### 2 4344-4 ####[facility]ORATORYCLIA [id number] [address] Oxyhemoglobin (BldV) [Mass fraction] 66 % Normal 60-85 [facility] Comment on above: Order Comment: Speci men Type: VENOUS BLOOD SPECIMENOrdering Facility: [facility] Address: [address] [place] [address] Performed By: #### 2 4344-4 ####[facility]ATORYCLIA [id number] [address] [place] pH (BldV) 7.42 [pH] Normal 7.32-7.42 [facility] Comment on above: Order Comment: Speci men Type: VENOUS BLOOD SPECIMENOrdering Facility: [facility] Address: [address] [place] [address] Performed By: #### 2 4344-4 ####[facility]ATORYCLIA [id number] [address] [place] pH adjusted to patient's actual temperature (BldV) 7.43 High 7.32-7.42 [facility] Comment on above: Order Comment: Speci men Type: VENOUS BLOOD SPECIMENOrdering Facility: [facility] Address: [address] [place] [address] Performed By: #### 2 4344-4 ####[facility]ORATORYCLIA [id number] [address] STATES OF [facility] Potassium [Moles/Vol] 4.0 mmol/L Normal 3.5-5.0 [facility] Comment on above: Order Comment: Speci men Type: VENOUS BLOOD SPECIMENOrdering Facility: [facility] Address: [address] [place] [address] Performed By: #### 2 4344-4 ####[facility]ORATORYCLIA [id number] [address] STATES [facility] Sodium [Moles/Vol] 146 mmol/L High 136-144 [facility] Comment on above: Order Comment: Speci men Type: VENOUS BLOOD SPECIMENOrdering Facility: [facility] Address: [address] [place] [address] Performed By: #### 2 4344-4 ####[facility]ORATORYCLIA [id number] [address] OF [facility] HEMOGLOBIN (HGB)on Hemoglobin (Bld) [Mass/Vol] 9.2 g/dL Low 13.0-17.0 [facility] Comment on above: Order Comment: Speci men Type: BLOOD SPECIMENOrdering Facility: [facility] Address: [address] [place] [address] Performed By: #### H GB ####[facility]ORATORYCLIA [id number] [address] [place] IRON + TIBCon 06-18-2021 Iron [Mass/Vol] 27 ug/dL Low 41-186 [facility] Comment on above: Order Comment: Speci men Type: BLOOD SPECIMENOrdering Facility: [facility] Address: [address] [place] [address] Performed By: #### S ERFOL, IRON, FERR ####[facility]ORATORYCLIA [id number] [address] [place] Iron binding capacity [Mass/Vol] 141 ug/dL Low 232-386 [facility] Comment on above: Order Comment: Speci men Type: BLOOD SPECIMENOrdering Facility: [facility] Address: [address] [place] [address] Performed By: #### S ERFOL, IRON, FERR ####[facility]ORATORYCLIA [id number] [address] Iron saturation [Mass fraction] 19 % Normal 15-57 [facility] Comment on above: Order Comment: Speci men Type: BLOOD SPECIMENOrdering Facility: [facility] Address: [address] [place] [address] Performed By: #### S ERFOL, IRON, FERR ####[facility]ORATORYCLIA [id number] [address] Magnesium SerPl-mCncon 06-18 Magnesium [Mass/Vol] 2.5 mg/dL High 1.7-2.3 [facility] Comment on above: Order Comment: Speci men Type: BLOOD SPECIMENOrdering Facility: [facility] Address: [address] [place] [address] Performed By: #### 2 4321-2, , 2777 ####[facility]ORATORYCLIA [id number] [address] OF [facility] NURSING PROGon 06-18-2021 NURSING PROG Normal [facility] Phosphate SerPl-mCncon 06-18 Phosphate [Mass/Vol] 3.0 mg/dL Normal 2.7-4.8 [facility] Comment on above: Order Comment: Speci men Type: BLOOD SPECIMENOrdering Facility: [facility] Address: [address] [place] [address] Performed By: #### 2 4321-2, 15522-3, 2777-1 ####[facility] LABORATORYCLIA [id number] [address] THERAPY NTon 06-18-2021 THERAPY NT Normal [facility] aPTT PPPon 06-18-2021 aPTT Coag (PPP) [Time] 43.0 s High 23.0-32.4 [facility] Comment on above: Order Comment: Speci men Type: BLOOD SPECIMENOrdering Facility: [facility] Address: [address] [place] [address] Performed By: #### 1 4979-9 ####SELECT [facility]ATORYCLIA [id number] [address] aPTT Coag (PPP) [Time] 60.6 s High 23.0-32.4 [facility] Comment on above: Order Comment: Speci men Type: BLOOD SPECIMENOrdering Facility: [facility] Address: [address] [place] [address] Performed By: #### 1 4979-9 ####[facility] LABORATORYCLIA [id number] [address] STATES OF [facility] aPTT Coag (PPP) [Time] 46.4 s High 23.0-32.4 [facility] Comment on above: Order Comment: Speci men Type: BLOOD SPECIMENOrdering Facility: [facility] Address: [address] [place] [address] Performed By: #### 1 4979-9 ####[facility] LABORATORYCLIA [id number] [place] [address] [place] Basic metabolic 2000 panelon 06-17-2021 Anion gap [Moles/Vol] 7 mmol/L Low 9-18 [facility] Comment on above: Order Comment: Speci men Type: BLOOD SPECIMENOrdering Facility: [facility] Address: [address] [place] [address] Performed By: #### 2 951-2, 15491-0, 2777-1, 38583-7 ####[facility]ATORYCLIA [id number] [place] [address] [place] Calcium [Mass/Vol] 8.1 mg/dL Low 8.5-10.2 [facility] Comment on above: Order Comment: Speci men Type: BLOOD SPECIMENOrdering Facility: [facility] Address: [address] [place] [address] Performed By: #### 2 951-2, , 2776-05, 28719-4 ####[facility]ORATORYCLIA [id number] [place] [address] [place] Chloride [Moles/Vol] 113 mmol/L High 97-105 [facility] Comment on above: Order Comment: Speci men Type: BLOOD SPECIMENOrdering Facility: [facility] Address: [address] [place] [address] Performed By: #### 2 951-2, , 2776-05, ####[facility] [id number] [place] [address] [place] CO2 [Moles/Vol] 25 mmol/L Normal 22-30 [facility] Comment on above: Order Comment: Speci men Type: BLOOD SPECIMENOrdering Facility: [facility] Address: [address] [place] [address] Performed By: #### 2 951-2, , 2776-05, ####[facility]ORATORYCLIA [id number] [place] [address] [place] Creatinine [Mass/Vol] 0.70 mg/dL Low 0.73-1.22 [facility] Comment on above: Order Comment: Speci men Type: BLOOD SPECIMENOrdering Facility: [facility] Address: [address] [place] [address] Performed By: #### 2 951-2, , 2776-05, 59818-9 ####[facility]ATORYCLIA [id number] [place] [address] [place] GFR/1.73 sq M.predicted MDRD (S/P/Bld) [Vol rate/Area] mL/min/{1.73_m2} Normal [facility] Comment on above: Order Comment: Shira feldman Type: BLOOD SPECIMENOrdering Facility: [facility] Address: [address] [place], [place] [address] Result Comment: >60e GFR (Estimated GFR) Units [...] actual GFR. Performed By: #### 2 951-2, 06874-1, 2777-, 49104-8 ####[facility]ITALCLIA [id number] [place] [address] [place] Glucose [Mass/Vol] 122 mg/dL High 74-99 [facility] Comment on above: Order Comment: Shira feldman Type: BLOOD SPECIMENOrdering Facility: [facility] Address: [address] [place], [place] [address] Result Comment: The [place] Diabetes Association (ADA) provides guidance for cutoff [...] Standards of Medical Care in Diabetes 2016, [place] [employer]. Diabetes Care. 2016.39(Suppl 1). Performed By: #### 2 951-2, 28316-0, 2777-, 32969-7 ####[facility]ORATORYCLIA [id number] [place] [id number] [place] Potassium [Moles/Vol] 3.5 mmol/L Low 3.7-5.1 [facility] Comment on above: Order Comment: Speci men Type: BLOOD SPECIMENOrdering Facility: [facility] Address: [address] [place] [address] Performed By: #### 2 951-2, 38562-3, 2777-1, 22754-9 ####[facility]ATORYCLIA [id number] [address] [place] Urea nitrogen [Mass/Vol] 27 mg/dL High 9-24 [facility] Comment on above: Order Comment: Speci men Type: BLOOD SPECIMENOrdering Facility: [facility] Address: [address] [place] [address] Performed By: #### 2 951-2, 46311-7, 2777-1, 89084-2 ####[facility]ATORYCLIA [id number] [address] CASE MANAGEMon 06-17-2021 CASE MANAGEM Normal [facility] CBC panel Auto (Bld)on 06-17 Erythrocyte distribution width (RBC) [Ratio] 15.9 % High 11.5-15.0 [facility] Comment on above: Order Comment: Speci men Type: BLOOD SPECIMENOrdering Facility: [facility] Address: [address] [place] [address] Performed By: #### 5 8410-2 ####[facility]ORATORYCLIA [id number] [address] STATES OF [facility] Hematocrit (Bld) [Volume fraction] 28.9 % Low 39.0-51.0 [facility] Comment on above: Order Comment: Speci men Type: BLOOD SPECIMENOrdering Facility: [facility] Address: [address] [place] [address] Performed By: #### 5 8410-2 ####[facility]ORATORYCLIA [id number] [address] [place] Hemoglobin (Bld) [Mass/Vol] 8.8 g/dL Low 13.0-17.0 [facility] Comment on above: Order Comment: Speci men Type: BLOOD SPECIMENOrdering Facility: [facility] Address: [address] [place] [address] Performed By: #### 5 8410-2 ####[facility]ATORYCLIA [id number] [address] MCH (RBC) [Entitic mass] 28.4 pg Normal 26.0-34.0 [facility] Comment on above: Order Comment: Speci men Type: BLOOD SPECIMENOrdering Facility: [facility] Address: [address] [place] [address] Performed By: #### 5 8410-2 ####[facility]ORATORYCLIA [id number] [address] MCHC (RBC) [Mass/Vol] 30.4 g/dL Low 30.5-36.0 [facility] Comment on above: Order Comment: Speci men Type: BLOOD SPECIMENOrdering Facility: [facility] Address: [address] [place] [address] Performed By: #### 5 8410-2 ####[facility]ORATORYCLIA [id number] [address] MCV (RBC) [Entitic vol] 93.2 fL Normal 80.0-100.0 [facility] Comment on above: Order Comment: Speci men Type: BLOOD SPECIMENOrdering Facility: [facility] Address: [address] [place] [address] Performed By: #### 5 8410-2 ####[facility]ORATORYCLIA [id number] [address] Nucleated RBC (Bld) [#/Vol] 10*3/uL Normal <0.01 [facility] Comment on above: Order Comment: Speci men Type: BLOOD SPECIMENOrdering Facility: [facility] Address: [address] [place] [address] Performed By: #### 5 8410-2 ####[facility]ORATORYCLIA [id number] [address] [place] Platelet mean volume (Bld) [Entitic vol] 11.9 fL Normal 9.0-12.7 [facility] Comment on above: Order Comment: Speci men Type: BLOOD SPECIMENOrdering Facility: [facility] Address: [address] [place] [address] Performed By: #### 5 8410-2 ####[facility]ORATORYCLIA [id number] [address] OF [place] Platelets (Bld) [#/Vol] 257 10*3/uL Normal 150-400 [facility] Comment on above: Order Comment: Speci men Type: BLOOD SPECIMENOrdering Facility: [facility] Address: [address] [place] [address] Performed By: #### 5 8410-2 ####[facility]ORATORYCLIA [id number] [address] OF [facility] RBC (Bld) [#/Vol] 3.10 10*6/uL Low 4.20-6.00 [facility] Comment on above: Order Comment: Speci men Type: BLOOD SPECIMENOrdering Facility: [facility] Address: [address] [place] [address] Performed By: #### 5 8410-2 ####[facility]ATORYCLIA [id number] [address] [place] WBC (Bld) [#/Vol] 10.54 10*3/uL Normal 3.70-11.00 [facility] Comment on above: Order Comment: Speci men Type: BLOOD SPECIMENOrdering Facility: [facility] Address: [address] [place] [address] Performed By: #### 5 8410-2 ####[facility]ORATORYCLIA [id number] [address] [place] HEMOGLOBIN (HGB)on 2 Hemoglobin (Bld) [Mass/Vol] 8.8 g/dL Low 13.0-17.0 [facility] Comment on above: Order Comment: Speci men Type: BLOOD SPECIMENOrdering Facility: [facility] Address: [address] [place] [address] Performed By: #### H GB ####[facility]ORATORYCLIA [id number] [address] [place] Magnesium SerPl-mCncon 06-17 Magnesium [Mass/Vol] 2.5 mg/dL High 1.7-2.3 [facility] Comment on above: Order Comment: Speci men Type: BLOOD SPECIMENOrdering Facility: [facility] Address: [address] [place] [address] Performed By: #### 2 951-2, , 2776-05, 02680-6 ####[facility]ORATORYCLIA [id number] [address] [place] NURSING PROGon 06-17-2021 NURSING PROG Normal [facility] NURSING PROG Normal [facility] NURSING PROG Normal [facility] Phosphate SerPl-mCncon 06-17 Phosphate [Mass/Vol] 1.9 mg/dL Low 2.7-4.8 [facility] Comment on above: Order Comment: Speci men Type: BLOOD SPECIMENOrdering Facility: [facility] Address: [address] [place] [address] Performed By: #### 2 951-2, , 2776-05, 25447-5 ####[facility]ORYCLIA [id number] [address] [place] Sodium SerPl-sCncon 06-17-19 22 Sodium [Moles/Vol] 144 mmol/L Normal 136-144 [facility] Comment on above: Order Comment: Speci men Type: BLOOD SPECIMENOrdering Facility: [facility] Address: [address] [place] [address] Performed By: #### 2 951-2 ####[facility]ATORYCLIA [id number] [address] STATES [facility] Sodium [Moles/Vol] 145 mmol/L High 136-144 [facility] Comment on above: Order Comment: Speci men Type: BLOOD SPECIMENOrdering Facility: [facility] Address: [address] [place] [address] Performed By: #### 2 951-2, 63742-4, 2777-1, 08028-8 ####[facility]ATORYCLIA [id number] [address] [place] aPTT PPPon 06-17-2021 aPTT Coag (PPP) [Time] 55.8 s High 23.0-32.4 [facility] Comment on above: Order Comment: Speci men Type: BLOOD SPECIMENOrdering Facility: [facility] Address: [address] [place] [address] Performed By: #### 1 4979-9 ####[facility]ATORYCLIA [id number] [address] OF [facility] ARTERIAL BLOOD GASESon 06-16 Base excess Calc (Bld) [Moles/Vol] 3 mmol/L High 0-2 [facility] Comment on above: Order Comment: Speci men Type: ARTERIAL BLOOD SPECIMENOrdering Facility: [facility] Address: [address] [place] [address] Performed By: #### A LLBG ####[facility]ATORYCLIA [id number] [address] [place] Body temperature 99.14 [degF] Normal [facility] Comment on above: Order Comment: Speci men Type: ARTERIAL BLOOD SPECIMENOrdering Facility: [facility] Address: [address] [place] [address] Performed By: #### A LLBG ####[facility]ORATORYCLIA [id number] [address] STATES OF [facility] CALCIUM IONIZED, PH CORRECTED 1.21 mmol/L Normal 1.08-1.30 [facility] Comment on above: Order Comment: Speci men Type: ARTERIAL BLOOD SPECIMENOrdering Facility: [facility] Address: [address] [place] [address] Performed By: #### A LLBG ####[facility]ATORYCLIA [id number] [address] STATES [facility] Calcium.ionized (BldV) [Mass/Vol] 1.17 mmol/L Normal 1.08-1.30 [facility] Comment on above: Order Comment: Speci men Type: ARTERIAL BLOOD SPECIMENOrdering Facility: [facility] Address: [address] [place] [address] Performed By: #### A LLBG ####[facility]ATORYCLIA [id number] [address] Carboxyhemoglobin (BldA) [Mass fraction] 1.4 % Normal 0.0-2.0 [facility] Comment on above: Order Comment: Speci men Type: ARTERIAL BLOOD SPECIMENOrdering Facility: [facility] Address: [address] [place] [address] Result Comment: Carb oxyhemoglobin Reference Range for Smokers: 2.0-8.0% Performed By: #### A LLBG ####[facility]ATORYCLIA [id number] [address] [place] CO2 (Bld) [Partial pressure] 38 mm Hg Normal 36-46 [facility] Comment on above: Order Comment: Speci men Type: ARTERIAL BLOOD SPECIMENOrdering Facility: [facility] Address: [address] [place] [address] Performed By: #### A LLBG ####[facility]ATORYCLIA [id number] [address] [place] CO2 [Moles/Vol] 24.5 mmol/L Normal 22-28 [facility] Comment on above: Order Comment: Speci men Type: ARTERIAL BLOOD SPECIMENOrdering Facility: [facility] Address: [address] [place] [address] Performed By: #### A LLBG ####[facility]ORATORYCLIA [id number] [address] OF [facility] CO2 adjusted to patient's actual temperature (Bld) [Partial pressure] 38 mmHg Normal 36-46 [facility] Comment on above: Order Comment: Speci men Type: ARTERIAL BLOOD SPECIMENOrdering Facility: [facility] Address: [address] [place] [address] Performed By: #### A LLBG ####[facility]ATORYCLIA [id number] [address] [place] Glucose [Mass/Vol] 147 mg/dL High 60-105 [facility] Comment on above: Order Comment: Speci men Type: ARTERIAL BLOOD SPECIMENOrdering Facility: [facility] Address: [address] [place] [address] Performed By: #### A LLBG ####[facility]ATORYCLIA [id number] [address] [place] HCO3 (Bld) [Moles/Vol] 27 mmol/L High 22-26 [facility] Comment on above: Order Comment: Speci men Type: ARTERIAL BLOOD SPECIMENOrdering Facility: [facility] Address: [address] [place] [address] Performed By: #### A LLBG ####[facility]ATORYCLIA [id number] [address] [place] Hematocrit (Bld) [Volume fraction] 31.8 % Low 39.0-51.0 [facility] Comment on above: Order Comment: Speci men Type: ARTERIAL BLOOD SPECIMENOrdering Facility: [facility] Address: [address] [place] [address] Performed By: #### A LLBG ####[facility]ATORYCLIA [id number] [address] [place] Hemoglobin (Bld) [Mass/Vol] 10.3 g/dL Low 13.0-17.0 [facility] Comment on above: Order Comment: Speci men Type: ARTERIAL BLOOD SPECIMENOrdering Facility: [facility] Address: [address] [place] [address] Performed By: #### A LLBG ####[facility]ATORYCLIA [id number] [address] Methemoglobin (Bld) [Mass fraction] 1.0 % Normal 0.0-1.5 [facility] Comment on above: Order Comment: Speci men Type: ARTERIAL BLOOD SPECIMENOrdering Facility: [facility] Address: [address] [place] [address] Performed By: #### A LLBG ####[facility]ATORYCLIA [id number] [address] [place] O2 THERAPY Ventilator Normal [facility] Comment on above: Order Comment: Speci men Type: ARTERIAL BLOOD SPECIMENOrdering Facility: [facility] Address: [address] [place] [address] Performed By: #### A LLBG ####[facility]ORYCLIA [id number] [address] [place] Oxygen (Bld) [Partial pressure] 78 mm Hg Low 85-95 [facility] Comment on above: Order Comment: Speci men Type: ARTERIAL BLOOD SPECIMENOrdering Facility: [facility] Address: [address] [place] [address] Performed By: #### A LLBG ####[facility]ATORYCLIA [id number] [address] Oxygen adjusted to patient's actual temperature (Bld) [Partial pressure] 79.7 mmHg Low 85-95 [facility] Comment on above: Order Comment: Speci men Type: ARTERIAL BLOOD SPECIMENOrdering Facility: [facility] Address: [address] [place] [address] Performed By: #### A LLBG ####[facility]ORYCLIA [id number] [address] [place] OXYGEN SATURATION, ARTERIAL 96 % Normal 95-98 [facility] Comment on above: Order Comment: Speci men Type: ARTERIAL BLOOD SPECIMENOrdering Facility: [facility] Address: [address] [place] [address] Performed By: #### A LLBG ####[facility]ATORYCLIA [id number] [address] Oxyhemoglobin (BldA) [Mass fraction] 94 % Low 95-98 [facility] Comment on above: Order Comment: Speci men Type: ARTERIAL BLOOD SPECIMENOrdering Facility: [facility] Address: [address] [place] [address] Performed By: #### A LLBG ####[facility]ATORYCLIA [id number] [address] [place] pH (Bld) 7.47 [pH] High 7.35-7.45 [facility] Comment on above: Order Comment: Speci men Type: ARTERIAL BLOOD SPECIMENOrdering Facility: [facility] Address: [address] [place] [address] Performed By: #### A LLBG ####[facility]ATORYCLIA [id number] [address] pH adjusted to patient's actual temperature (Bld) 7.46 High 7.35-7.45 [facility] Comment on above: Order Comment: Speci men Type: ARTERIAL BLOOD SPECIMENOrdering Facility: [facility] Address: [address] [place] [address] Performed By: #### A LLBG ####[facility]ATORYCLIA [id number] [address] [place] Potassium [Moles/Vol] 3.7 mmol/L Normal 3.5-5.0 [facility] Comment on above: Order Comment: Speci men Type: ARTERIAL BLOOD SPECIMENOrdering Facility: [facility] Address: [address] [place] [address] Performed By: #### A LLBG ####[facility]ATORYCLIA [id number] [address] [place] Sodium [Moles/Vol] 155 mmol/L High 136-144 [facility] Comment on above: Order Comment: Speci men Type: ARTERIAL BLOOD SPECIMENOrdering Facility: [facility] Address: [address] [place] [address] Performed By: #### A LLBG ####[facility]ORATORYCLIA [id number] [address] [place] Bacteria Spec Resp Culton Bacteria identified Respiratory culture Nom (Unsp spec) CULTURE, RESPIRATORY: Rare Normal respiratory chris present ORGANISM ID: 1 Few Yeast, not cryptococcus neoformans GRAM STAIN: No organisms seen Few Polymorphonuclear leukocytes Few Epithelial cells Abnormal [facility] Comment on above: Performed By: #### 3 2355-0 ####[facility]ATORYCLIA [id number] [address] [place] Basic metabolic 2000 panelon 06-16-2021 Anion gap [Moles/Vol] 9 mmol/L Normal 9-18 [facility] Comment on above: Order Comment: Speci men Type: BLOOD SPECIMENOrdering Facility: [facility] Address: [address] [place] [address] Performed By: #### 2 4321-2 ####[facility]ATORYCLIA [id number] [address] [place] Calcium [Mass/Vol] 8.4 mg/dL Low 8.5-10.2 [facility] Comment on above: Order Comment: Speci men Type: BLOOD SPECIMENOrdering Facility: [facility] Address: [address] [place] [address] Performed By: #### 2 4321-2 ####[facility]ATORYCLIA [id number] [address] [place] Chloride [Moles/Vol] 120 mmol/L High 97-105 [facility] Comment on above: Order Comment: Speci men Type: BLOOD SPECIMENOrdering Facility: [facility] Address: [address] [place] [address] Performed By: #### 2 4321-2 ####[facility]ATORYCLIA [id number] [address] OF [facility] CO2 [Moles/Vol] 27 mmol/L Normal 22-30 [facility] Comment on above: Order Comment: Johni men Type: BLOOD SPECIMENOrdering Facility: [facility] Address: [address] [place] [address] Performed By: #### 2 4321-2 ####[facility]ATORYCLIA [id number] [address] [place] Creatinine [Mass/Vol] 0.75 mg/dL Normal 0.73-1.22 [facility] Comment on above: Order Comment: Speci men Type: BLOOD SPECIMENOrdering Facility: [facility] Address: [address] [place] [address] Performed By: #### 2 4321-2 ####[facility]CL[facility] [id number] [address] [place] GFR/1.73 sq M.predicted MDRD (S/P/Bld) [Vol rate/Area] mL/min/{1.73_m2} Normal [facility] Comment on above: Order Comment: Shira francia Type: BLOOD SPECIMENOrdering Facility: [facility] Address: [address] [place] [address] Result Comment: >60e GFR (Estimated GFR) Units [...] #### 2 4321-2 ####[facility]ATORYCLIA [id number] [address] [place] Glucose [Mass/Vol] 160 mg/dL High 74-99 [facility] Comment on above: Order Comment: Speci men Type: BLOOD SPECIMENOrdering Facility: [facility] Address: [address] [address] Result Comment: The [place] [employer] (ADA) provides guidance for cutoff [...] Standards of Medical Care in Diabetes 2016, [place] [employer]. Diabetes Care. 2016.39(Suppl 1). Performed By: #### 2 4321-2 ####[facility]ATORYCLIA [id number] [place] [address] [place] Potassium [Moles/Vol] 3.1 mmol/L Low 3.7-5.1 [facility] Comment on above: Order Comment: Speci men Type: BLOOD SPECIMENOrdering Facility: [facility] Address: [address] [address] Performed By: #### 2 1-2 ####[facility]ATORYCLIA [id number] [place] [address] [place] Sodium [Moles/Vol] 156 mmol/L High 136-144 [facility] Comment on above: Order Comment: Speci men Type: BLOOD SPECIMENOrdering Facility: [facility] Address: [address] [address] Performed By: #### 2 1-2 ####[facility]ATORYCLIA [id number] [place] [address] [place] Urea nitrogen [Mass/Vol] 33 mg/dL High 9-24 [facility] Comment on above: Order Comment: Speci men Type: BLOOD SPECIMENOrdering Facility: [facility] Address: [address] [address] Performed By: #### 2 4321-2 ####[facility]ATORYCLIA [id number] [address] [place] CASE MANAGEMon 06-16-2021 CASE MANAGEM Normal [facility] CBC panel Auto (Bld)on 06-16 Erythrocyte distribution width (RBC) [Ratio] 15.9 % High 11.5-15.0 [facility] Comment on above: Order Comment: Speci men Type: BLOOD SPECIMENOrdering Facility: [facility] Address: [address] [place] [address] Performed By: #### 5 8410-2 ####[facility]ATORYCLIA [id number] [address] Hematocrit (Bld) [Volume fraction] 34.6 % Low 39.0-51.0 [facility] Comment on above: Order Comment: Speci men Type: BLOOD SPECIMENOrdering Facility: [facility] Address: [address] [place] [address] Performed By: #### 5 8410-2 ####[facility]ORYCLIA [id number] [address] Hemoglobin (Bld) [Mass/Vol] 10.2 g/dL Low 13.0-17.0 [facility] Comment on above: Order Comment: Speci men Type: BLOOD SPECIMENOrdering Facility: [facility] Address: [address] [place] [address] Performed By: #### 5 8410-2 ####[facility] LABORATORYCLIA [id number] [address] MCH (RBC) [Entitic mass] 28.5 pg Normal 26.0-34.0 [facility] Comment on above: Order Comment: Speci men Type: BLOOD SPECIMENOrdering Facility: [facility] Address: [address] [place] [address] Performed By: #### 5 8410-2 ####[facility] LABORATORYCLIA [id number] [place] [address] [place] MCHC (RBC) [Mass/Vol] 29.5 g/dL Low 30.5-36.0 [facility] Comment on above: Order Comment: Speci men Type: BLOOD SPECIMENOrdering Facility: [facility] Address: [address] [place] [address] Performed By: #### 5 8410-2 ####[facility] LABORATORYCLIA [id number] [address] [place] MCV (RBC) [Entitic vol] 96.6 fL Normal 80.0-100.0 [facility] Comment on above: Order Comment: Speci men Type: BLOOD SPECIMENOrdering Facility: [facility] Address: [address] [place] [address] Performed By: #### 5 8410-2 ####[facility] LABORATORYCLIA [id number] [address] [place] Nucleated RBC (Bld) [#/Vol] 10*3/uL Normal <0.01 [facility] Comment on above: Order Comment: Speci men Type: BLOOD SPECIMENOrdering Facility: [facility] Address: [address] [place] [address] Performed By: #### 5 8410-2 ####[facility] LABORATORYCLIA [id number] [address] [place] Platelet mean volume (Bld) [Entitic vol] 11.9 fL Normal 9.0-12.7 [facility] Comment on above: Order Comment: Speci men Type: BLOOD SPECIMENOrdering Facility: [facility] Address: [address] [place] [address] Performed By: #### 5 8410-2 ####[facility] LABORATORYCLIA [id number] [address] [place] Platelets (Bld) [#/Vol] 269 10*3/uL Normal 150-400 [facility] Comment on above: Order Comment: Speci men Type: BLOOD SPECIMENOrdering Facility: [facility] Address: [address] [place] [address] Performed By: #### 5 8410-2 ####[facility] LABORATORYCLIA [id number] [address] STATES OF [facility] RBC (Bld) [#/Vol] 3.58 10*6/uL Low 4.20-6.00 [facility] Comment on above: Order Comment: Speci men Type: BLOOD SPECIMENOrdering Facility: [facility] Address: [address] [place] [address] Performed By: #### 5 8410-2 ####[facility] LABORATORYCLIA [id number] [address] OF [facility] WBC (Bld) [#/Vol] 13.11 10*3/uL High 3.70-11.00 [facility] Comment on above: Order Comment: Speci men Type: BLOOD SPECIMENOrdering Facility: [facility] Address: [address] [place] [address] Performed By: #### 5 8410-2 ####[facility] LABORATORYCLIA [id number] [address] [place] CONSULTon 06-16-2021 CONSULT Normal [facility] CONSULT PROGon 06-16-2021 CONSULT PROG Normal [facility] CT BRAIN WO IVCONon 06-16-[address] BRAIN WO IVCON Normal [facility] HEMOGLOBIN (HGB)on 2 Hemoglobin (Bld) [Mass/Vol] 8.9 g/dL Low 13.0-17.0 [facility] Comment on above: Order Comment: Speci men Type: BLOOD SPECIMENOrdering Facility: [facility] Address: [address] [place] [address] Performed By: #### H GB ####[facility] LABORATORYCLIA [id number] [address] Hemoglobin (Bld) [Mass/Vol] 9.6 g/dL Low 13.0-17.0 [facility] Comment on above: Order Comment: Speci men Type: BLOOD SPECIMENOrdering Facility: [facility] Address: [address] [place] [address] Performed By: #### H GB ####[facility] LABORATORYCLIA [id number] [place] [address] [place] Magnesium SerPl-mCncon 06-16 Magnesium [Mass/Vol] 2.7 mg/dL High 1.7-2.3 [facility] Comment on above: Order Comment: Speci men Type: BLOOD SPECIMENOrdering Facility: [facility] Address: [address] [place] [address] Performed By: #### 1 9123-9 ####[facility] LABORATORYCLIA [id number] [place] [address] [place] NURSING PROGon 06-16-2021 NURSING PROG Normal [facility] NUTRITIONon 06-16-2021 NUTRITION Normal [facility] Phosphate SerPl-mCncon 06-16 Phosphate [Mass/Vol] 1.4 mg/dL Low 2.7-4.8 [facility] Comment on above: Order Comment: Speci men Type: BLOOD SPECIMENOrdering Facility: [facility] Address: [address] [place] [address] Performed By: #### 2 777-1 ####[facility] LABORATORYCLIA [id number] [address] [place] STAPH AUREUS PCRon 2 S. aureus and MRSA panel MEGAN+probe (Nose) Normal Negative [facility] Comment on above: Order Comment: Speci men Type: SWAB OF INTERNAL NOSEOrdering Facility: [facility] Address: [address] [place] [address] Result Comment: Nega tive for Staphylococcus aureus by PCR.Negative for MRSA by PCR Performed By: #### S APCR ####[facility] LABORATORYCLIA [id number] [place] [address] [place] Sodium SerPl-sCncon 06-16-19 Sodium [Moles/Vol] 150 mmol/L High 136-144 [facility] Comment on above: Order Comment: Speci men Type: BLOOD SPECIMENOrdering Facility: [facility] Address: [address] [place] [address] Performed By: #### 2 951-2 ####[facility]ORATORYCLIA [id number] [address] STATES OF [facility] Sodium [Moles/Vol] 153 mmol/L High 136-144 [facility] Comment on above: Order Comment: Speci men Type: BLOOD SPECIMENOrdering Facility: [facility] Address: [address] [place] [address] Performed By: #### 2 951-2 ####[facility] LABORATORYCLIA [id number] [address] OF [facility] Sodium [Moles/Vol] 158 mmol/L High 136-144 [facility] Comment on above: Order Comment: Speci men Type: BLOOD SPECIMENOrdering Facility: [facility] Address: [address] [place] [address] Performed By: #### 2 951-2 ####[facility]ORATORYCLIA [id number] [address] [place] aPTT PPPon 06-16-2021 aPTT Coag (PPP) [Time] 61.8 s High 23.0-32.4 [facility] Comment on above: Order Comment: Speci men Type: BLOOD SPECIMENOrdering Facility: [facility] Address: [address] [place] [address] Performed By: #### 1 4979-9 ####[facility]ORATORYCLIA [id number] [address] [place] aPTT Coag (PPP) [Time] 57.6 s High 23.0-32.4 [facility] Comment on above: Order Comment: Speci men Type: BLOOD SPECIMENOrdering Facility: [facility] Address: [address] [place] [address] Performed By: #### 1 4979-9 ####[facility]ORATORYCLIA [id number] [address] [place] ALLIED HEALTHon 06-15-2021 ALLIED HEALTH Normal [facility] ALLIED HEALTH Normal [facility] ALLIED HEALTH Normal [facility] ALLIED HEALTH Normal [facility] ARTERIAL BLOOD GASESon 06-15 Base excess Calc (Bld) [Moles/Vol] 3 mmol/L High 0-2 [facility] Comment on above: Order Comment: Speci men Type: ARTERIAL BLOOD SPECIMENOrdering Facility: [facility] Address: [address] [place] [address] Performed By: #### A LLBG ####[facility] LABORATORYCLIA [id number] [address] STATES [facility] Body temperature 99.5 [degF] Normal [facility] Comment on above: Order Comment: Speci men Type: ARTERIAL BLOOD SPECIMENOrdering Facility: [facility] Address: [address] [place] [address] Performed By: #### A LLBG ####[facility] LABORATORYCLIA [id number] [place] [address] [place] CALCIUM IONIZED, PH CORRECTED 1.34 mmol/L High 1.08-1.30 [facility] Comment on above: Order Comment: Speci men Type: ARTERIAL BLOOD SPECIMENOrdering Facility: [facility] Address: [address] [place] [address] Performed By: #### A LLBG ####[facility] LABORATORYCLIA [id number] [place] [address] [place] Calcium.ionized (BldV) [Mass/Vol] 1.29 mmol/L Normal 1.08-1.30 [facility] Comment on above: Order Comment: Speci men Type: ARTERIAL BLOOD SPECIMENOrdering Facility: [facility] Address: [address] [place] [address] Performed By: #### A LLBG ####[facility] LABORATORYCLIA [id number] [place] [address] [place] Carboxyhemoglobin (BldA) [Mass fraction] 1.3 % Normal 0.0-2.0 [facility] Comment on above: Order Comment: Speci men Type: ARTERIAL BLOOD SPECIMENOrdering Facility: [facility] Address: [address] [place] [address] Result Comment: Carb oxyhemoglobin Reference Range for Smokers: 2.0-8.0% Performed By: #### A LLBG ####[facility]ORATORYCLIA [id number] [address] CO2 (Bld) [Partial pressure] 37 mm Hg Normal 36-46 [facility] Comment on above: Order Comment: Speci men Type: ARTERIAL BLOOD SPECIMENOrdering Facility: [facility] Address: [address] [place] [address] Performed By: #### A LLBG ####[facility]ORATORYCLIA [id number] [address] [place] CO2 [Moles/Vol] 24.6 mmol/L Normal 22-28 [facility] Comment on above: Order Comment: Speci men Type: ARTERIAL BLOOD SPECIMENOrdering Facility: [facility] Address: [address] [place] [address] Performed By: #### A LLBG ####[facility]ORATORYCLIA [id number] [address] [place] CO2 adjusted to patient's actual temperature (Bld) [Partial pressure] 38 mmHg Normal 36-46 [facility] Comment on above: Order Comment: Speci men Type: ARTERIAL BLOOD SPECIMENOrdering Facility: [facility] Address: [address] [place] [address] Performed By: #### A LLBG ####[facility]ORATORYCLIA [id number] [address] [place] FIO2 100 % Normal [facility] Comment on above: Order Comment: Speci men Type: ARTERIAL BLOOD SPECIMENOrdering Facility: [facility] Address: [address] [place] [address] Performed By: #### A LLBG ####[facility]ORATORYCLIA [id number] [address] [place] Glucose [Mass/Vol] 159 mg/dL High 60-105 [facility] Comment on above: Order Comment: Speci men Type: ARTERIAL BLOOD SPECIMENOrdering Facility: [facility] Address: [address] [place] [address] Performed By: #### A LLBG ####[facility] LABORATORYCLIA [id number] [place] [address] [place] HCO3 (Bld) [Moles/Vol] 27 mmol/L High 22-26 [facility] Comment on above: Order Comment: Speci men Type: ARTERIAL BLOOD SPECIMENOrdering Facility: [facility] Address: [address] [place] [address] Performed By: #### A LLBG ####[facility]ORATORYCLIA [id number] [address] [place] Hematocrit (Bld) [Volume fraction] 31.0 % Low 39.0-51.0 [facility] Comment on above: Order Comment: Speci men Type: ARTERIAL BLOOD SPECIMENOrdering Facility: [facility] Address: [address] [place] [address] Performed By: #### A LLBG ####[facility]ORATORYCLIA [id number] [address] [place] Hemoglobin (Bld) [Mass/Vol] 10.0 g/dL Low 13.0-17.0 [facility] Comment on above: Order Comment: Speci men Type: ARTERIAL BLOOD SPECIMENOrdering Facility: [facility] Address: [address] [address] Performed By: #### A LLBG ####[facility]ORATORYCLIA [id number] [address] [place] Methemoglobin (Bld) [Mass fraction] % Normal 0.0-1.5 [facility] Comment on above: Order Comment: Speci men Type: ARTERIAL BLOOD SPECIMENOrdering Facility: [facility] Address: [address] [place] [address] Performed By: #### A LLBG ####[facility]ORATORYCLIA [id number] [address] O2 THERAPY Ventilator Normal [facility] Comment on above: Order Comment: Speci men Type: ARTERIAL BLOOD SPECIMENOrdering Facility: [facility] Address: [address] [address] Performed By: #### A LLBG ####[facility]ORATORYCLIA [id number] [address] OF [facility] Oxygen (Bld) [Partial pressure] 279 mm Hg High 85-95 [facility] Comment on above: Order Comment: Speci men Type: ARTERIAL BLOOD SPECIMENOrdering Facility: [facility] Address: [address] [place] [address] Performed By: #### A LLBG ####[facility]ORATORYCLIA [id number] [address] Oxygen adjusted to patient's actual temperature (Bld) [Partial pressure] 281 mmHg High 85-95 [facility] Comment on above: Order Comment: Speci men Type: ARTERIAL BLOOD SPECIMENOrdering Facility: [facility] Address: [address] [place] [address] Performed By: #### A LLBG ####[facility]ORATORYCLIA [id number] [address] [place] OXYGEN SATURATION, ARTERIAL 100 % High 95-98 [facility] Comment on above: Order Comment: Speci men Type: ARTERIAL BLOOD SPECIMENOrdering Facility: [facility] Address: [address] [address] Performed By: #### A LLBG ####[facility]ORATORYCLIA [id number] [address] Oxyhemoglobin (BldA) [Mass fraction] 98 % Normal 95-98 [facility] Comment on above: Order Comment: Speci men Type: ARTERIAL BLOOD SPECIMENOrdering Facility: [facility] Address: [address] [place] [address] Performed By: #### A LLBG ####[facility]ORATORYCLIA [id number] [address] [place] pH (Bld) 7.47 [pH] High 7.35-7.45 [facility] Comment on above: Order Comment: Speci men Type: ARTERIAL BLOOD SPECIMENOrdering Facility: [facility] Address: [address] [place] [address] Performed By: #### A LLBG ####[facility]ORATORYCLIA [id number] [address] [place] pH adjusted to patient's actual temperature (Bld) 7.46 High 7.35-7.45 [facility] Comment on above: Order Comment: Speci men Type: ARTERIAL BLOOD SPECIMENOrdering Facility: [facility] Address: [address] [place] [address] Performed By: #### A LLBG ####[facility]ORATORYCLIA [id number] [address] [place] Potassium [Moles/Vol] 3.6 mmol/L Normal 3.5-5.0 [facility] Comment on above: Order Comment: Speci men Type: ARTERIAL BLOOD SPECIMENOrdering Facility: [facility] Address: [address] [place] [address] Performed By: #### A LLBG ####[facility]ORATORYCLIA [id number] [address] [place] Sodium [Moles/Vol] 162 mmol/L High 136-144 [facility] Comment on above: Order Comment: Speci men Type: ARTERIAL BLOOD SPECIMENOrdering Facility: [facility] Address: [address] [place] [address] Performed By: #### A LLBG ####[facility]ORATORYCLIA [id number] [place] [address] [place] Base excess Calc (Bld) [Moles/Vol] 4 mmol/L High 0-2 [facility] Comment on above: Order Comment: Speci men Type: ARTERIAL BLOOD SPECIMENOrdering Facility: [facility] Address: [address] [place] [address] Performed By: #### A LLBG ####[facility]ORATORYCLIA [id number] [address] Body temperature 100.58 [degF] Normal [facility] Comment on above: Order Comment: Speci men Type: ARTERIAL BLOOD SPECIMENOrdering Facility: [facility] Address: [address] [place] [address] Performed By: #### A LLBG ####[facility] LABORATORYCLIA [id number] [address] OF [facility] CALCIUM IONIZED, PH CORRECTED 1.34 mmol/L High 1.08-1.30 [facility] Comment on above: Order Comment: Speci men Type: ARTERIAL BLOOD SPECIMENOrdering Facility: [facility] Address: [address] [place] [address] Performed By: #### A LLBG ####[facility]ORATORYCLIA [id number] [address] Calcium.ionized (BldV) [Mass/Vol] 1.33 mmol/L High 1.08-1.30 [facility] Comment on above: Order Comment: Speci men Type: ARTERIAL BLOOD SPECIMENOrdering Facility: [facility] Address: [address] [place] [address] Performed By: #### A LLBG ####[facility]ORATORYCLIA [id number] [address] Carboxyhemoglobin (BldA) [Mass fraction] 1.5 % Normal 0.0-2.0 [facility] Comment on above: Order Comment: Speci men Type: ARTERIAL BLOOD SPECIMENOrdering Facility: [facility] Address: [address] [place] [address] Result Comment: Carb oxyhemoglobin Reference Range for Smokers: 2.0-8.0% Performed By: #### A LLBG ####[facility]ATORYCLIA [id number] [address] CO2 (Bld) [Partial pressure] 46 mm Hg Normal 36-46 [facility] Comment on above: Order Comment: Speci men Type: ARTERIAL BLOOD SPECIMENOrdering Facility: [facility] Address: [address] [place] [address] Performed By: #### A LLBG ####[facility] LABORATORYCLIA [id number] [address] [place] CO2 [Moles/Vol] 26.4 mmol/L Normal 22-28 [facility] Comment on above: Order Comment: Speci men Type: ARTERIAL BLOOD SPECIMENOrdering Facility: [facility] Address: [address] [place] [address] Performed By: #### A LLBG ####[facility]ORATORYCLIA [id number] [address] [place] CO2 adjusted to patient's actual temperature (Bld) [Partial pressure] 48 mmHg High 36-46 [facility] Comment on above: Order Comment: Speci men Type: ARTERIAL BLOOD SPECIMENOrdering Facility: [facility] Address: [address] [place] [address] Performed By: #### A LLBG ####[facility]ORATORYCLIA [id number] [address] [place] FIO2 100 % Normal [facility] Comment on above: Order Comment: Speci men Type: ARTERIAL BLOOD SPECIMENOrdering Facility: [facility] Address: [address] [place] [address] Performed By: #### A LLBG ####[facility]ORATORYCLIA [id number] [address] [place] Glucose [Mass/Vol] 132 mg/dL High 60-105 [facility] Comment on above: Order Comment: Speci men Type: ARTERIAL BLOOD SPECIMENOrdering Facility: [facility] Address: [address] [place] [address] Performed By: #### A LLBG ####[facility]ORATORYCLIA [id number] [address] OF [facility] HCO3 (Bld) [Moles/Vol] 29 mmol/L High 22-26 [facility] Comment on above: Order Comment: Speci men Type: ARTERIAL BLOOD SPECIMENOrdering Facility: [facility] Address: [address] [place] [address] Performed By: #### A LLBG ####[facility]ORATORYCLIA [id number] [address] OF [facility] Hematocrit (Bld) [Volume fraction] 32.3 % Low 39.0-51.0 [facility] Comment on above: Order Comment: Speci men Type: ARTERIAL BLOOD SPECIMENOrdering Facility: [facility] Address: [address] [place] [address] Performed By: #### A LLBG ####[facility]ORATORYCLIA [id number] [address] STATES OF [facility] Hemoglobin (Bld) [Mass/Vol] 10.4 g/dL Low 13.0-17.0 [facility] Comment on above: Order Comment: Speci men Type: ARTERIAL BLOOD SPECIMENOrdering Facility: [facility] Address: [address] [place] [address] Performed By: #### A LLBG ####[facility]ATORYCLIA [id number] [address] Methemoglobin (Bld) [Mass fraction] % Normal 0.0-1.5 [facility] Comment on above: Order Comment: Speci men Type: ARTERIAL BLOOD SPECIMENOrdering Facility: [facility] Address: [address] [place] [address] Performed By: #### A LLBG ####[facility]ORATORYCLIA [id number] [address] O2 THERAPY NR=Non-Rebreather Mask Normal [facility] Comment on above: Order Comment: Speci men Type: ARTERIAL BLOOD SPECIMENOrdering Facility: [facility] Address: [address] [place] [address] Performed By: #### A LLBG ####[facility]ORATORYCLIA [id number] [address] [place] Oxygen (Bld) [Partial pressure] 130 mm Hg High 85-95 [facility] Comment on above: Order Comment: Speci men Type: ARTERIAL BLOOD SPECIMENOrdering Facility: [facility] Address: [address] [address] Performed By: #### A LLBG ####[facility]ATORYCLIA [id number] [address] [place] Oxygen adjusted to patient's actual temperature (Bld) [Partial pressure] 136 mmHg High 85-95 [facility] Comment on above: Order Comment: Speci men Type: ARTERIAL BLOOD SPECIMENOrdering Facility: [facility] Address: [address] [place] [address] Performed By: #### A LLBG ####[facility]ORATORYCLIA [id number] [address] [place] OXYGEN SATURATION, ARTERIAL 99 % High 95-98 [facility] Comment on above: Order Comment: Speci men Type: ARTERIAL BLOOD SPECIMENOrdering Facility: [facility] Address: [address] [place] [address] Performed By: #### A LLBG ####[facility]ATORYCLIA [id number] [address] [place] Oxyhemoglobin (BldA) [Mass fraction] 97 % Normal 95-98 [facility] Comment on above: Order Comment: Speci men Type: ARTERIAL BLOOD SPECIMENOrdering Facility: [facility] Address: [address] [address] Performed By: #### A LLBG ####[facility]ATORYCLIA [id number] [address] [place] pH (Bld) 7.41 [pH] Normal 7.35-7.45 [facility] Comment on above: Order Comment: Speci men Type: ARTERIAL BLOOD SPECIMENOrdering Facility: [facility] Address: [address] [place] [address] Performed By: #### A LLBG ####[facility]ORATORYCLIA [id number] [address] pH adjusted to patient's actual temperature (Bld) 7.40 Normal 7.35-7.45 [facility] Comment on above: Order Comment: Speci men Type: ARTERIAL BLOOD SPECIMENOrdering Facility: [facility] Address: [address] [place] [address] Performed By: #### A LLBG ####[facility]ORATORYCLIA [id number] [address] Potassium [Moles/Vol] 3.8 mmol/L Normal 3.5-5.0 [facility] Comment on above: Order Comment: Speci men Type: ARTERIAL BLOOD SPECIMENOrdering Facility: [facility] Address: [address] [place] [address] Performed By: #### A LLBG ####[facility]ORATORYCLIA [id number] [address] Sodium [Moles/Vol] 166 mmol/L High 136-144 [facility] Comment on above: Order Comment: Speci men Type: ARTERIAL BLOOD SPECIMENOrdering Facility: [facility] Address: [address] [place] [address] Performed By: #### A LLBG ####[facility]ORATORYCLIA [id number] [address] [place] Bacteria Bld Culton 06-15-19 22 Bacteria identified Cx Nom (Bld) CULTURE, BLOOD: No growth 5 days Normal [facility] Comment on above: Performed By: #### 6 00-7 ####[facility] LABORATORYCLIA [id number] [address] [place] Basic metabolic 2000 panelon 06-15-2021 Anion gap [Moles/Vol] 9 mmol/L Normal 9-18 [facility] Comment on above: Order Comment: Speci men Type: BLOOD SPECIMEN Performed By: #### 2 4321-2, 2776-05, ####[facility] LABORATORYCLIA [id number] [address] OF [facility] Calcium [Mass/Vol] 9.0 mg/dL Normal 8.5-10.2 [facility] Comment on above: Order Comment: Speci men Type: BLOOD SPECIMEN Performed By: #### 2 4321-2, 2776-05, ####[facility]ORATORYCLIA [id number] [address] OF [facility] Chloride [Moles/Vol] 125 mmol/L High 97-105 [facility] Comment on above: Order Comment: Speci men Type: BLOOD SPECIMEN Performed By: #### 2 4321-2, 2776-05, ####[facility]ORATORYCLIA [id number] [address] CO2 [Moles/Vol] 29 mmol/L Normal 22-30 [facility] Comment on above: Order Comment: Speci men Type: BLOOD SPECIMEN Performed By: #### 2 4321-2, 2776-05, ####[facility]ORATORYCLIA [id number] [address] STATES OF [facility] Creatinine [Mass/Vol] 0.81 mg/dL Normal 0.73-1.22 [facility] Comment on above: Order Comment: Speci men Type: BLOOD SPECIMEN Performed By: #### 2 4321-2, 2776-05, ####[facility]ORATORYCLIA [id number] [address] [place] GFR/1.73 sq M.predicted MDRD (S/P/Bld) [Vol rate/Area] mL/min/{1.73_m2} Normal [facility] Comment on above: Order [...] 2 4321-2, 2776-05, ####[facility]ORATORYCLIA [id number] [place] [address] [place] Glucose [Mass/Vol] 124 mg/dL High 74-99 [facility] Comment on above: Order Comment: Speci men Type: BLOOD SPECIMEN Result Comment: The [place] Diabetes Association (ADA) provides guidance for cutoff [...] Standards of Medical Care in Diabetes 2016, [place] [employer]. Diabetes Care. 2016.39(Suppl 1). Performed By: #### 2 432-2, 2776-05, ####[facility]OSPITALIA [id number] [place] [address] [place] Potassium [Moles/Vol] 3.8 mmol/L Normal 3.7-5.1 [facility] Comment on above: Order Comment: Speci men Type: BLOOD SPECIMEN Performed By: #### 2 4321-2, 2776-05, ####[facility]ORATORYCLIA [id number] [place] [address] [place] Sodium [Moles/Vol] 163 mmol/L High 136-144 [facility] Comment on above: Order Comment: Speci men Type: BLOOD SPECIMEN Performed By: #### 2 4321-2, 2776-1, ####[facility]ATORYCLIA [id number] [address] STATES [facility] Urea nitrogen [Mass/Vol] 35 mg/dL High 9-24 [facility] Comment on above: Order Comment: Speci men Type: BLOOD SPECIMEN Performed By: #### 2 4321-2, 277-, ####[facility]ATORYCLIA [id number] [address] CBC panel Auto (Bld)on 06-15 Erythrocyte distribution width (RBC) [Ratio] 16.3 % High 11.5-15.0 [facility] Comment on above: Order Comment: Speci men Type: BLOOD SPECIMENOrdering Facility: [facility] Address: [address] [place] [address] Performed By: #### 5 8410-2 ####[facility] LABORATORYCLIA [id number] [address] Hematocrit (Bld) [Volume fraction] 30.0 % Low 39.0-51.0 [facility] Comment on above: Order Comment: Speci men Type: BLOOD SPECIMENOrdering Facility: [facility] Address: [address] [place] [address] Performed By: #### 5 8410-2 ####[facility] LABORATORYCLIA [id number] [address] STATES [facility] Hemoglobin (Bld) [Mass/Vol] 8.9 g/dL Low 13.0-17.0 [facility] Comment on above: Order Comment: Speci men Type: BLOOD SPECIMENOrdering Facility: [facility] Address: [address] [place] [address] Performed By: #### 5 8410-2 ####[facility]ORATORYCLIA [id number] [address] [place] MCH (RBC) [Entitic mass] 28.7 pg Normal 26.0-34.0 [facility] Comment on above: Order Comment: Speci men Type: BLOOD SPECIMENOrdering Facility: [facility] Address: [address] [place] [address] Performed By: #### 5 8410-2 ####[facility]ORATORYCLIA [id number] [address] MCHC (RBC) [Mass/Vol] 29.7 g/dL Low 30.5-36.0 [facility] Comment on above: Order Comment: Speci men Type: BLOOD SPECIMENOrdering Facility: [facility] Address: [address] [place] [address] Performed By: #### 5 8410-2 ####[facility]ORATORYCLIA [id number] [address] [place] MCV (RBC) [Entitic vol] 96.8 fL Normal 80.0-100.0 [facility] Comment on above: Order Comment: Speci men Type: BLOOD SPECIMENOrdering Facility: [facility] Address: [address] [place] [address] Performed By: #### 5 8410-2 ####[facility]ORATORYCLIA [id number] [address] Nucleated RBC (Bld) [#/Vol] 10*3/uL Normal <0.01 [facility] Comment on above: Order Comment: Speci men Type: BLOOD SPECIMENOrdering Facility: [facility] Address: [address] [place] [address] Performed By: #### 5 8410-2 ####[facility] LABORATORYCLIA [id number] [address] Platelet mean volume (Bld) [Entitic vol] 12.3 fL Normal 9.0-12.7 [facility] Comment on above: Order Comment: Speci men Type: BLOOD SPECIMENOrdering Facility: [facility] Address: [address] [place] [address] Performed By: #### 5 8410-2 ####[facility]ORATORYCLIA [id number] [address] [place] Platelets (Bld) [#/Vol] 226 10*3/uL Normal 150-400 [facility] Comment on above: Order Comment: Speci men Type: BLOOD SPECIMENOrdering Facility: [facility] Address: [address] [place] [address] Performed By: #### 5 8410-2 ####[facility]ORATORYCLIA [id number] [address] [place] RBC (Bld) [#/Vol] 3.10 10*6/uL Low 4.20-6.00 [facility] Comment on above: Order Comment: Speci men Type: BLOOD SPECIMENOrdering Facility: [facility] Address: [address] [place] [address] Performed By: #### 5 8410-2 ####[facility]ORATORYCLIA [id number] [address] WBC (Bld) [#/Vol] 10.77 10*3/uL Normal 3.70-11.00 [facility] Comment on above: Order Comment: Speci men Type: BLOOD SPECIMENOrdering Facility: [facility] Address: [address] [place] [address] Performed By: #### 5 8410-2 ####[facility]ORATORYCLIA [id number] [address] Erythrocyte distribution width (RBC) [Ratio] 16.2 % High 11.5-15.0 [facility] Comment on above: Order Comment: Speci men Type: BLOOD SPECIMENOrdering Facility: [facility] Address: [address] [place] [address] Performed By: #### 5 8410-2 ####[facility]ORATORYCLIA [id number] [address] Hematocrit (Bld) [Volume fraction] 34.8 % Low 39.0-51.0 [facility] Comment on above: Order Comment: Speci men Type: BLOOD SPECIMENOrdering Facility: [facility] Address: [address] [place] [address] Performed By: #### 5 8410-2 ####[facility] LABORATORYCLIA [id number] [address] OF [facility] Hemoglobin (Bld) [Mass/Vol] 10.0 g/dL Low 13.0-17.0 [facility] Comment on above: Order Comment: Speci men Type: BLOOD SPECIMENOrdering Facility: [facility] Address: [address] [place] [address] Performed By: #### 5 8410-2 ####[facility]ORATORYCLIA [id number] [address] STATES OF [facility] MCH (RBC) [Entitic mass] 27.5 pg Normal 26.0-34.0 [facility] Comment on above: Order Comment: Speci men Type: BLOOD SPECIMENOrdering Facility: [facility] Address: [address] [place] [address] Performed By: #### 5 8410-2 ####[facility]ORATORYCLIA [id number] [address] MCHC (RBC) [Mass/Vol] 28.7 g/dL Low 30.5-36.0 [facility] Comment on above: Order Comment: Speci men Type: BLOOD SPECIMENOrdering Facility: [facility] Address: [address] [place] [address] Performed By: #### 5 8410-2 ####[facility]ORATORYCLIA [id number] [address] [place] MCV (RBC) [Entitic vol] 95.6 fL Normal 80.0-100.0 [facility] Comment on above: Order Comment: Speci men Type: BLOOD SPECIMENOrdering Facility: [facility] Address: [address] [place] [address] Performed By: #### 5 8410-2 ####[facility]ORATORYCLIA [id number] [address] [place] Nucleated RBC (Bld) [#/Vol] 10*3/uL Normal <0.01 [facility] Comment on above: Order Comment: Speci men Type: BLOOD SPECIMENOrdering Facility: [facility] Address: [address] [place] [address] Performed By: #### 5 8410-2 ####[facility]ORATORYCLIA [id number] [place] [address] [place] Platelet mean volume (Bld) [Entitic vol] 11.9 fL Normal 9.0-12.7 [facility] Comment on above: Order Comment: Speci men Type: BLOOD SPECIMENOrdering Facility: [facility] Address: [address] [place] [address] Performed By: #### 5 8410-2 ####[facility]ORATORYCLIA [id number] [address] [place] Platelets (Bld) [#/Vol] 246 10*3/uL Normal 150-400 [facility] Comment on above: Order Comment: Speci men Type: BLOOD SPECIMENOrdering Facility: [facility] Address: [address] [place] [address] Performed By: #### 5 8410-2 ####[facility]ORATORYCLIA [id number] [address] [place] RBC (Bld) [#/Vol] 3.64 10*6/uL Low 4.20-6.00 [facility] Comment on above: Order Comment: Speci men Type: BLOOD SPECIMENOrdering Facility: [facility] Address: [address] [place] [address] Performed By: #### 5 8410-2 ####[facility]ORATORYCLIA [id number] [address] [place] WBC (Bld) [#/Vol] 11.45 10*3/uL High 3.70-11.00 [facility] Comment on above: Order Comment: Speci men Type: BLOOD SPECIMENOrdering Facility: [facility] Address: [address] [place] [address] Performed By: #### 5 8410-2 ####[facility]ORATORYCLIA [id number] [address] Erythrocyte distribution width (RBC) [Ratio] 15.9 % High 11.5-15.0 [facility] Comment on above: Order Comment: Speci men Type: BLOOD SPECIMEN Performed By: #### 5 8410-2 ####[facility]ORATORYCLIA [id number] [address] Hematocrit (Bld) [Volume fraction] 35.8 % Low 39.0-51.0 [facility] Comment on above: Order Comment: Speci men Type: BLOOD SPECIMEN Performed By: #### 5 8410-2 ####[facility]ATORYCLIA [id number] [address] Hemoglobin (Bld) [Mass/Vol] 10.4 g/dL Low 13.0-17.0 [facility] Comment on above: Order Comment: Speci men Type: BLOOD SPECIMEN Performed By: #### 5 8410-2 ####[facility]ORATORYCLIA [id number] [address] MCH (RBC) [Entitic mass] 28.0 pg Normal 26.0-34.0 [facility] Comment on above: Order Comment: Speci men Type: BLOOD SPECIMEN Performed By: #### 5 8410-2 ####[facility]ORATORYCLIA [id number] [address] MCHC (RBC) [Mass/Vol] 29.1 g/dL Low 30.5-36.0 [facility] Comment on above: Order Comment: Speci men Type: BLOOD SPECIMEN Performed By: #### 5 8410-2 ####[facility]ATORYCLIA [id number] [address] MCV (RBC) [Entitic vol] 96.2 fL Normal 80.0-100.0 [facility] Comment on above: Order Comment: Speci men Type: BLOOD SPECIMEN Performed By: #### 5 8410-2 ####[facility]ATORYCLIA [id number] [address] Nucleated RBC (Bld) [#/Vol] 10*3/uL Normal <0.01 [facility] Comment on above: Order Comment: Speci men Type: BLOOD SPECIMEN Performed By: #### 5 8410-2 ####[facility]ATORYCLIA [id number] [address] Platelet mean volume (Bld) [Entitic vol] 11.6 fL Normal 9.0-12.7 [facility] Comment on above: Order Comment: Speci men Type: BLOOD SPECIMEN Performed By: #### 5 8410-2 ####[facility]ATORYCLIA [id number] [address] Platelets (Bld) [#/Vol] 265 10*3/uL Normal 150-400 [facility] Comment on above: Order Comment: Speci men Type: BLOOD SPECIMEN Performed By: #### 5 8410-2 ####[facility]ATORYCLIA [id number] [address] RBC (Bld) [#/Vol] 3.72 10*6/uL Low 4.20-6.00 [facility] Comment on above: Order Comment: Speci men Type: BLOOD SPECIMEN Performed By: #### 5 8410-2 ####[facility]ATORYCLIA [id number] [address] WBC (Bld) [#/Vol] 12.24 10*3/uL High 3.70-11.00 [facility] Comment on above: Order Comment: Speci men Type: BLOOD SPECIMEN Performed By: #### 5 8410-2 ####[facility]ORATORYCLIA [id number] [address] CONSULTon 06-15-2021 CONSULT Normal [facility] CONSULT Normal [facility] CONSULT Normal [facility] CT BRAIN WO IVCONon 06-15-19 CT BRAIN WO IVCON Normal [facility] CT CHEST W IVCON PEon 2021 CT CHEST W IVCON PE Invalid Interpretation Code [facility] Chloride Unsp time (U) [Mole s/Vol]on 06-15-2021 Chloride (U) [Moles/Vol] 28 mmol/L Normal 16-250 [facility] Comment on above: Order Comment: Speci men Type: URINE SPECIMENOrdering Facility: [facility] Address: [address] [place] [address] Performed By: #### U TPR, 03890-6, 88692-8, 96969-8 ####[facility]ORATORYCLIA [id number] [address] Comprehensive metabolic 2000 panelon 06-15-2021 Albumin [Mass/Vol] 2.8 g/dL Low 3.9-4.9 [facility] Comment on above: Order Comment: Speci men Type: BLOOD SPECIMENOrdering Facility: [facility] Address: [address] [place] [address] Performed By: #### 2 4323-8 ####[facility]ORATORYCLIA [id number] [address] ALP [Catalytic activity/Vol] 74 U/L Normal 38-113 [facility] Comment on above: Order Comment: Speci men Type: BLOOD SPECIMENOrdering Facility: [facility] Address: [address] [place] [address] Performed By: #### 2 4323-8 ####[facility]ORATORYCLIA [id number] [address] ALT With P-5'-P [Catalytic activity/Vol] 50 U/L Normal 10-54 [facility] Comment on above: Order Comment: Speci men Type: BLOOD SPECIMENOrdering Facility: [facility] Address: [address] [place] [address] Performed By: #### 2 4323-8 ####[facility]ORATORYCLIA [id number] [place] [address] [place] Anion gap [Moles/Vol] 12 mmol/L Normal 9-18 [facility] Comment on above: Order Comment: Speci men Type: BLOOD SPECIMENOrdering Facility: [facility] Address: [address] [place] [address] Performed By: #### 2 4323-8 ####[facility]ATORYCLIA [id number] [place] [address] [place] AST With P-5'-P [Catalytic activity/Vol] 36 U/L Normal 14-40 [facility] Comment on above: Order Comment: Speci men Type: BLOOD SPECIMENOrdering Facility: [facility] Address: [address] [place] [address] Performed By: #### 2 4323-8 ####[facility]ORATORYCLIA [id number] [address] [place] Bilirubin [Mass/Vol] 0.5 mg/dL Normal 0.2-1.3 [facility] Comment on above: Order Comment: Speci men Type: BLOOD SPECIMENOrdering Facility: [facility] Address: [address] [place] [address] Performed By: #### 2 4323-8 ####[facility]ATORYCLIA [id number] [address] [place] Calcium [Mass/Vol] 8.8 mg/dL Normal 8.5-10.2 [facility] Comment on above: Order Comment: Speci men Type: BLOOD SPECIMENOrdering Facility: [facility] Address: [address] [place] [address] Performed By: #### 2 4323-8 ####[facility]ATORYCLIA [id number] [place] [address] [place] Chloride [Moles/Vol] 126 mmol/L High 97-105 [facility] Comment on above: Order Comment: Speci men Type: BLOOD SPECIMENOrdering Facility: [facility] Address: [address] [place] [address] Performed By: #### 2 4323-8 ####[facility]ORATORYCLIA [id number] [address] STATES OF [facility] CO2 [Moles/Vol] 24 mmol/L Normal 22-30 [facility] Comment on above: Order Comment: Speci men Type: BLOOD SPECIMENOrdering Facility: [facility] Address: [address] [place] [address] Performed By: #### 2 4323-8 ####[facility]ORATORYCLIA [id number] [address] [place] Creatinine [Mass/Vol] 0.84 mg/dL Normal 0.73-1.22 [facility] Comment on above: Order Comment: Speci men Type: BLOOD SPECIMENOrdering Facility: [facility] Address: [address] [place] [address] Performed By: #### 2 4323-8 ####[facility]ORATORYCLIA [id number] [address] [place] GFR/1.73 sq M.predicted MDRD (S/P/Bld) [Vol rate/Area] mL/min/{1.73_m2} Normal [facility] Comment on above: Order Comment: Speci men Type: BLOOD SPECIMENOrdering Facility: [facility] Address: [address] [place] [address] Result Comment: >60e GFR (Estimated GFR) Units [...] #### 2 4323-8 ####[facility]ORATORYCLIA [id number] [place] [address] [place] Glucose [Mass/Vol] 142 mg/dL High 74-99 [facility] Comment on above: Order Comment: Shira feldman Type: BLOOD SPECIMENOrdering Facility: [facility] Address: [address] [place] [address] Result Comment: The [place] Diabetes [employer] (ADA) provides guidance for cutoff [...] Standards of Medical Care in Diabetes 2016, [place] [employer]. Diabetes Care. 2016.39(Suppl 1). Performed By: #### 2 4323-8 ####[facility]ATORYCLIA [id number] [place] [address] [place] Potassium [Moles/Vol] 3.8 mmol/L Normal 3.7-5.1 [facility] Comment on above: Order Comment: Shira feldman Type: BLOOD SPECIMENOrdering Facility: [facility] Address: [address] [place] [address] Performed By: #### 2 4323-8 ####[facility]ORATORYCLIA [id number] [place] [address] [place] Protein [Mass/Vol] 6.1 g/dL Low 6.3-8.0 [facility] Comment on above: Order Comment: Shira feldman Type: BLOOD SPECIMENOrdering Facility: [facility] Address: [address] [place] [address] Performed By: #### 2 4323-8 ####[facility]ORATORYCLIA [id number] [place] [address] [place] Sodium [Moles/Vol] 162 mmol/L High 136-144 [facility] Comment on above: Order Comment: Speci men Type: BLOOD SPECIMENOrdering Facility: [facility] Address: [address] [place] [address] Performed By: #### 2 4323-8 ####[facility]ORATORYCLIA [id number] [place] [address] [place] Urea nitrogen [Mass/Vol] 33 mg/dL High 9-24 [facility] Comment on above: Order Comment: Speci men Type: BLOOD SPECIMENOrdering Facility: [facility] Address: [address] [place] [address] Performed By: #### 2 4323-8 ####[facility]ORATORYCLIA [id number] [place] [address] [place] Creatinine Unsp time (U) [Ma ss/Vol]on 06-15-2021 Creatinine (U) [Mass/Vol] 87.0 mg/dL Normal 46.8-314.5 [facility] Comment on above: Order Comment: Speci men Type: URINE SPECIMENOrdering Facility: [facility] Address: [address] [place] [address] Performed By: #### U TPR, 89649-7, 32351-9, 94325-9 ####[facility]ORATORYCLIA [id number] [address] [place] HIGH SENSITIVITY TROPONIN To n 06-15-2021 HIGH SENSITIVITY TAMIKO 23 ng/L High <12 [facility] Comment on above: Order Comment: Speci men Type: BLOOD SPECIMENOrdering Facility: [facility] Address: [address] [place] [address] Result Comment: When assessing risk for acute [...] day MACE. Performed By: #### P JULIANNE, 14841-3, HSTNT ####[facility]OSPITALIA [id number] [place] [address] [place] Lactate (Bld) [Moles/Vol]on 06-15-2021 Lactate [Moles/Vol] 0.8 mmol/L Normal 0.5-2.2 [facility] Comment on above: Order Comment: Speci men Type: BLOOD SPECIMENOrdering Facility: [facility] Address: [address] [place] [address] Performed By: #### 3 2693-4 ####[facility]CL[facility] [id number] [place] [address] [place] Magnesium SerPl-ncon 06-15 Magnesium [Mass/Vol] 3.0 mg/dL High 1.7-2.3 [facility] Comment on above: Order Comment: Speci men Type: BLOOD SPECIMEN Performed By: #### 2 4321-2, 2777-1, 74105-8 ####[facility]OSPITALIA [id number] [address] [place] NT-proBNP [facility] 06-15 Natriuretic peptide.B prohormone N-Terminal [Mass/Vol] 265 pg/mL High <125 [facility] Comment on above: Order Comment: Speci men Type: BLOOD SPECIMENOrdering Facility: [facility] Address: [address] [place] [address] Performed By: #### P JULIANNE, 94955-0, HSTNT ####[facility] HOSPITALIA [id number] [place] [address] [place] Osmolality Uron 06-15-2021 Osmolality (U) [Osmolality] 606 mosm/kg Normal 50-1,200 [facility] Comment on above: Order Comment: Speci men Type: URINE SPECIMENOrdering Facility: [facility] Address: [address] [place] [address] Performed By: #### 2 695-5 ####[facility] HOSPITALIA [id number] [address] PROCALCITONIN (LAB)on 2021 Procalcitonin [Mass/Vol] 0.21 ng/mL High <0.09 [facility] Comment on above: Order Comment: Speci men Type: BLOOD SPECIMENOrdering Facility: [facility] Address: [address] [place] [address] Result Comment: For a guided interpretation of test results, please visit the Change in Procalcitonin Calculator, [email or web address]. Performed By: #### P JULIANNE, 2951-2 ####[facility] LABORATORYCLIA [id number] [address] Procalcitonin [Mass/Vol] 0.17 ng/mL High <0.09 [facility] Comment on above: Order Comment: Speci men Type: BLOOD SPECIMENOrdering Facility: [facility] Address: [address] [place] [address] Result Comment: For a guided interpretation of test results, please visit the Change in Procalcitonin Calculator, [email or web address]. Performed By: #### P JULIANNE, 95942-3, HSTNT ####[facility] LABORATORYCLIA [id number] [address] PROTEIN RANDOM URon 06-15-19 22 Protein (U) [Mass/Vol] 175 mg/dL High 0-20 [facility] Comment on above: Order Comment: Speci men Type: URINE SPECIMENOrdering Facility: [facility] Address: [address] [place] [address] Performed By: #### U TPR, 13762-0, 29788-2, 90187-7 ####[facility] LABORATORYCLIA [id number] [address] PT panel Coag (PPP)on 2021 INR Coag (PPP) [Relative time] 1.1 {INR} Normal <1.4 [facility] Comment on above: Order Comment: Speci men Type: BLOOD SPECIMENOrdering Facility: [facility] Address: [address] [place] [address] Result Comment: Yris min K Antagonist (VKA) Therapeutic Range: INR 2 to 3 (Target INR of 2.5)Note: For patients treated with VKA drugs, such as warfarin, the [place] [employer] 2012 Guideline recommends [...] al. Chest 2012, 141:7S-47SNishmariangel RA, et al. [facility] 2017, 70: 252-289 Performed By: #### 3 4528-0, 90003-7 ####[facility] LABORATORYCLIA [id number] [place] [address] [place] PT Coag (PPP) [Time] 11.4 s Normal <13.1 [facility] Comment on above: Order Comment: Speccara feldman Type: BLOOD SPECIMENOrdering Facility: [facility] Address: [address] [place], [place] [address] Performed By: #### 3 4528-0, 84042-4 ####[facility] LABORATORYCLIA [id number] [place] [id number] [place] Phosphate SerPl-mCncon 06-15 Phosphate [Mass/Vol] 2.6 mg/dL Low 2.7-4.8 [facility] Comment on above: Order Comment: Shira feldman Type: BLOOD SPECIMEN Performed By: #### 2 4321-2, 2777-1, 14191-0 ####[facility] LABORATORYCLIA [id number] [place] [address] [place] Sodium ?Tm Ur-sCncon 022 Sodium Unsp time (U) [Moles/Vol] 34 mmol/L Normal 14-216 [facility] Comment on above: Order Comment: Speci men Type: URINE SPECIMENOrdering Facility: [facility] Address: [address] [place] [address] Performed By: #### U TPR, 30768-8, 01051-1, 58516-2 ####[facility] LABORATORYCLIA [id number] [address] Sodium SerPl-sCncon 06-15-19 22 Sodium [Moles/Vol] 159 mmol/L High 136-144 [facility] Comment on above: Order Comment: Speci men Type: BLOOD SPECIMENOrdering Facility: [facility] Address: [address] [place] [address] Performed By: #### P JULIANNE, 2951-2 ####[facility] LABORATORYCLIA [id number] [address] THERAPY NTon 06-15-2021 THERAPY NT Normal [facility] Urinalysis complete panel (U )on 06-15-2021 Bacteria LM.HPF (Urine sed) [#/Area] None Seen Normal None Seen [facility] Comment on above: Order Comment: Speci men Type: URINE SPECIMENOrdering Facility: [facility] Address: [address] [place] [address] Performed By: #### 2 4356-8 ####[facility] LABORATORYCLIA [id number] [address] Bilirubin Ql (U) Negative Normal Negative [facility] Comment on above: Order Comment: Speci men Type: URINE SPECIMENOrdering Facility: [facility] Address: [address] [place] [address] Performed By: #### 2 4356-8 ####[facility] LABORATORYCLIA [id number] [address] [place] Clarity (Unsp spec) Cloudy Abnormal Clear [facility] Comment on above: Order Comment: Speci men Type: URINE SPECIMENOrdering Facility: [facility] Address: [address] [place] [address] Performed By: #### 2 4356-8 ####[facility] LABORATORYCLIA [id number] [address] Color (U) Yellow Normal Yellow [facility] Comment on above: Order Comment: Speci men Type: URINE SPECIMENOrdering Facility: [facility] Address: [address] [place] [address] Performed By: #### 2 4356-8 ####[facility] LABORATORYCLIA [id number] [address] Epithelial cells LM.HPF (Urine sed) [#/Area] 7.1 /[HPF] Normal [facility] Comment on above: Order Comment: Speci men Type: URINE SPECIMENOrdering Facility: [facility] Address: [address] [place] [address] Performed By: #### 2 4356-8 ####[facility] LABORATORYCLIA [id number] [address] Glucose Test strip (U) [Mass/Vol] Negative Normal Negative [facility] Comment on above: Order Comment: Speci men Type: URINE SPECIMENOrdering Facility: [facility] Address: [address] [place] [address] Performed By: #### 2 4356-8 ####[facility] LABORATORYCLIA [id number] [address] Granular casts (Urine sed) [#/Area] /[LPF] Abnormal 0 /LPF [facility] Comment on above: Order Comment: Speci men Type: URINE SPECIMENOrdering Facility: [facility] Address: [address] [place] [address] Performed By: #### 2 4356-8 ####[facility] LABORATORYCLIA [id number] [address] Hemoglobin Ql (U) Moderate Abnormal Negative [facility] Comment on above: Order Comment: Speci men Type: URINE SPECIMENOrdering Facility: [facility] Address: [address] [place] [address] Performed By: #### 2 4356-8 ####[facility] LABORATORYCLIA [id number] [place] [address] [place] Hyaline casts (Urine sed) [#/Area] /[LPF] Abnormal 0 /LPF [facility] Comment on above: Order Comment: Speci men Type: URINE SPECIMENOrdering Facility: [facility] Address: [address] [place] [address] Performed By: #### 2 4356-8 ####[facility] LABORATORYCLIA [id number] [address] Ketones Ql (U) Negative Normal Negative [facility] Comment on above: Order Comment: Speci men Type: URINE SPECIMENOrdering Facility: [facility] Address: [address] [place] [address] Performed By: #### 2 4356-8 ####[facility] LABORATORYCLIA [id number] [address] Leukocyte esterase Test strip Ql (U) Negative Normal Negative [facility] Comment on above: Order Comment: Speci men Type: URINE SPECIMENOrdering Facility: [facility] Address: [address] [place] [address] Performed By: #### 2 4356-8 ####[facility] LABORATORYCLIA [id number] [place] [address] [place] Nitrite Ql (U) Negative Normal Negative [facility] Comment on above: Order Comment: Speci men Type: URINE SPECIMENOrdering Facility: [facility] Address: [address] [place] [address] Performed By: #### 2 4356-8 ####[facility] LABORATORYCLIA [id number] [place] [address] [place] pH (U) 6.0 [pH] Normal 5.0-8.0 [facility] Comment on above: Order Comment: Speci men Type: URINE SPECIMENOrdering Facility: [facility] Address: [address] [place] [address] Performed By: #### 2 4356-8 ####[facility] LABORATORYCLIA [id number] [address] Protein (U) [Mass/Vol] 100 mg/dL Abnormal Negative [facility] Comment on above: Order Comment: Speci men Type: URINE SPECIMENOrdering Facility: [facility] Address: [address] [place] [address] Performed By: #### 2 4356-8 ####[facility] LABORATORYCLIA [id number] [address] RBC LM.HPF (Urine sed) [#/Area] 0-3 /HPF Normal 0-3 /HPF [facility] Comment on above: Order Comment: Speci men Type: URINE SPECIMENOrdering Facility: [facility] Address: [address] [place] [address] Performed By: #### 2 4356-8 ####[facility]ITALCL[facility] [id number] [address] Specific gravity (U) [Rel density] 1.024 Normal 1.005-1.030 [facility] Comment on above: Order Comment: Speci men Type: URINE SPECIMENOrdering Facility: [facility] Address: [address] [place] [address] Performed By: #### 2 4356-8 ####[facility] LABORATORYCLIA [id number] [address] Urobilinogen Ql (U) 0.2 EU/dL Normal 0.2-1.0 EU/dL [facility] Comment on above: Order Comment: Speci men Type: URINE SPECIMENOrdering Facility: [facility] Address: [address] [place] [address] Performed By: #### 2 4356-8 ####[facility] LABORATORYCLIA [id number] [address] STATES [facility] WBC LM.HPF (Urine sed) [#/Area] 0-5 /HPF Normal 0-5 /HPF [facility] Comment on above: Order Comment: Speci men Type: URINE SPECIMENOrdering Facility: [facility] Address: [address] [place] [address] Performed By: #### 2 4356-8 ####[facility] LABORATORYCLIA [id number] [address] OF [facility] XR CHEST 1V FRONTALon 2021 XR CHEST 1V FRONTAL Normal [facility] XR CHEST 1V FRONTAL PORTon 0 06-15-2021 XR CHEST 1V FRONTAL PORT Normal [facility] XR CHEST 1V FRONTAL PORT Normal [facility] aPTT PPPon 06-15-2021 aPTT Coag (PPP) [Time] 30.9 s Normal 23.0-32.4 [facility] Comment on above: Order Comment: Speci men Type: BLOOD SPECIMENOrdering Facility: [facility] Address: [address] [place] [address] Performed By: #### 3 4528-0, 35084-6 ####[facility] LABORATORYCLIA [id number] [address] Basic metabolic 2000 panelon 06-14-2021 Anion gap [Moles/Vol] 8 mmol/L Low 9-18 [facility] Comment on above: Order Comment: Speci men Type: BLOOD SPECIMEN Performed By: #### 2 4321-2, 2777-, ####[facility] LABORATORYCLIA [id number] [address] STATES OF [facility] Calcium [Mass/Vol] 8.9 mg/dL Normal 8.5-10.2 [facility] Comment on above: Order Comment: Speci men Type: BLOOD SPECIMEN Performed By: #### 2 4321-2, 2777-1, ####[facility] LABORATORYCLIA [id number] [place] [address] [place] Chloride [Moles/Vol] 121 mmol/L High 97-105 [facility] Comment on above: Order Comment: Speci men Type: BLOOD SPECIMEN Performed By: #### 2 4321-2, 2776-05, ####[facility] LABORATORYCLIA [id number] [place], [place] [address] [place] [address] [place] CO2 [Moles/Vol] 30 mmol/L Normal 22-30 [facility] Comment on above: Order Comment: Speci men Type: BLOOD SPECIMEN Performed By: #### 2 4321-2, 2776-05, ####[facility] LABORATORYCLIA [id number] [address] STATES [facility] Creatinine [Mass/Vol] 0.78 mg/dL Normal 0.73-1.22 [facility] Comment on above: Order Comment: Speci men Type: BLOOD SPECIMEN Performed By: #### 2 4321-2, 2776-05, ####[facility] LABORATORYCLIA [id number] [address] [place] GFR/1.73 sq M.predicted MDRD (S/P/Bld) [Vol rate/Area] mL/min/{1.73_m2} Normal [facility] Comment on above: Order [...] 2 4321-2, 2776-05, ####[facility] LABORATORYCLIA [id number] [address] [place] Glucose [Mass/Vol] 132 mg/dL High 74-99 [facility] Comment on above: Order Comment: Speci men Type: BLOOD SPECIMEN Result Comment: The [place] [employer] (ADA) provides guidance for cutoff [...] Standards of Medical Care in Diabetes 2016, [place] [employer]. Diabetes Care. 2016.39(Suppl 1). Performed By: #### 2 4321-2, 2776-05, ####[facility] LABORATORYCLIA [id number] [address] OF [facility] Potassium [Moles/Vol] 3.7 mmol/L Normal 3.7-5.1 [facility] Comment on above: Order Comment: Speci men Type: BLOOD SPECIMEN Performed By: #### 2 1-2, 2776-05, ####[facility] LABORATORYCLIA [id number] [address] STATES OF [facility] Sodium [Moles/Vol] 159 mmol/L High 136-144 [facility] Comment on above: Order Comment: Speci men Type: BLOOD SPECIMEN Performed By: #### 2 4321-2, 2776-05, ####[facility] LABORATORYCLIA [id number] [address] STATES OF [facility] Urea nitrogen [Mass/Vol] 35 mg/dL High 9-24 [facility] Comment on above: Order Comment: Speci men Type: BLOOD SPECIMEN Performed By: #### 2 4321-2, 2776-05, ####[facility] LABORATORYCLIA [id number] [address] OF [facility] CASE MANAGEMon 06-14-2021 CASE MANAGEM Normal [facility] CBC panel Auto (Bld)on 06-14 Erythrocyte distribution width (RBC) [Ratio] 16.2 % High 11.5-15.0 [facility] Comment on above: Order Comment: Speci men Type: BLOOD SPECIMEN Performed By: #### 5 8410-2 ####[facility] LABORATORYCLIA [id number] [address] Hematocrit (Bld) [Volume fraction] 35.2 % Low 39.0-51.0 [facility] Comment on above: Order Comment: Speci men Type: BLOOD SPECIMEN Performed By: #### 5 8410-2 ####[facility] LABORATORYCLIA [id number] [address] Hemoglobin (Bld) [Mass/Vol] 10.1 g/dL Low 13.0-17.0 [facility] Comment on above: Order Comment: Speci men Type: BLOOD SPECIMEN Performed By: #### 5 8410-2 ####[facility] LABORATORYCLIA [id number] [address] MCH (RBC) [Entitic mass] 27.2 pg Normal 26.0-34.0 [facility] Comment on above: Order Comment: Speci men Type: BLOOD SPECIMEN Performed By: #### 5 8410-2 ####[facility] LABORATORYCLIA [id number] [address] MCHC (RBC) [Mass/Vol] 28.7 g/dL Low 30.5-36.0 [facility] Comment on above: Order Comment: Speci men Type: BLOOD SPECIMEN Performed By: #### 5 8410-2 ####[facility] LABORATORYCLIA [id number] [address] MCV (RBC) [Entitic vol] 94.6 fL Normal 80.0-100.0 [facility] Comment on above: Order Comment: Speci men Type: BLOOD SPECIMEN Performed By: #### 5 8410-2 ####[facility] LABORATORYCLIA [id number] [address] Nucleated RBC (Bld) [#/Vol] 10*3/uL Normal <0.01 [facility] Comment on above: Order Comment: Speci men Type: BLOOD SPECIMEN Performed By: #### 5 8410-2 ####[facility] LABORATORYCLIA [id number] [address] Platelet mean volume (Bld) [Entitic vol] 11.0 fL Normal 9.0-12.7 [facility] Comment on above: Order Comment: Speci men Type: BLOOD SPECIMEN Performed By: #### 5 8410-2 ####[facility] LABORATORYCLIA [id number] [address] Platelets (Bld) [#/Vol] 287 10*3/uL Normal 150-400 [facility] Comment on above: Order Comment: Speci men Type: BLOOD SPECIMEN Performed By: #### 5 8410-2 ####[facility] LABORATORYCLIA [id number] [address] RBC (Bld) [#/Vol] 3.72 10*6/uL Low 4.20-6.00 [facility] Comment on above: Order Comment: Speci men Type: BLOOD SPECIMEN Performed By: #### 5 8410-2 ####[facility] LABORATORYCLIA [id number] [address] WBC (Bld) [#/Vol] 12.23 10*3/uL High 3.70-11.00 [facility] Comment on above: Order Comment: Speci men Type: BLOOD SPECIMEN Performed By: #### 5 8410-2 ####[facility] LABORATORYCLIA [id number] [address] Comprehensive metabolic 2000 panelon 06-14-2021 Albumin [Mass/Vol] 3.1 g/dL Low 3.9-4.9 [facility] Comment on above: Order Comment: Speci men Type: BLOOD SPECIMEN Performed By: #### 2 4323-8, HSTNT, 2776-05, ####[facility] LABORATORYCLIA [id number] [place], [place] [id number] [place] [address] ALP [Catalytic activity/Vol] 72 U/L Normal 38-113 [facility] Comment on above: Order Comment: Speci men Type: BLOOD SPECIMEN Performed By: #### 2 4323-8, HSTNT, 2776-05, ####[facility] [facility] LABORATORYCLIA [id number] [place], [place] [id number] [place] [address] ALT With P-5'-P [Catalytic activity/Vol] 57 U/L High 10-54 [facility] Comment on above: Order Comment: Speci men Type: BLOOD SPECIMEN Performed By: #### 2 4323-8, HSTNT, 2776-05, ####[facility] LABORATORYCLIA [id number] [place], [place] [address] [place] [address] Anion gap [Moles/Vol] 9 mmol/L Normal 9-18 [facility] Comment on above: Order Comment: Speci men Type: BLOOD SPECIMEN Performed By: #### 2 4323-8, HSTNT, 2776-05, ####[facility] [facility] LABORATORYCLIA [id number] [place], [place] [address] [place] [address] AST With P-5'-P [Catalytic activity/Vol] 33 U/L Normal 14-40 [facility] Comment on above: Order Comment: Speci men Type: BLOOD SPECIMEN Performed By: #### 2 4323-8, HSTNT, 2776-05, ####[facility] LABORATORYCLIA [id number] [place], [place] [address] [place] [address] Bilirubin [Mass/Vol] 0.5 mg/dL Normal 0.2-1.3 [facility] Comment on above: Order Comment: Speci men Type: BLOOD SPECIMEN Performed By: #### 2 4323-8, HSTNT, 2776-05, ####[facility] LABORATORYCLIA [id number] [place] [address] [place] Calcium [Mass/Vol] 8.8 mg/dL Normal 8.5-10.2 [facility] Comment on above: Order Comment: Speci men Type: BLOOD SPECIMEN Performed By: #### 2 4323-8, HSTNT, 2776-05, ####[facility] LABORATORYCLIA [id number] [address] [place] Chloride [Moles/Vol] 124 mmol/L High 97-105 [facility] Comment on above: Order Comment: Speci men Type: BLOOD SPECIMEN Performed By: #### 2 4323-8, HSTNT, 2776-05, ####[facility] LABORATORYCLIA [id number] [address] [place] CO2 [Moles/Vol] 29 mmol/L Normal 22-30 [facility] Comment on above: Order Comment: Speci men Type: BLOOD SPECIMEN Performed By: #### 2 4323-8, HSTNT, 2776-05, ####[facility] LABORATORYCLIA [id number] [address] [place] Creatinine [Mass/Vol] 0.73 mg/dL Normal 0.73-1.22 [facility] Comment on above: Order Comment: Speci men Type: BLOOD SPECIMEN Performed By: #### 2 4323-8, HSTNT, 2776-05, ####[facility] LABORATORYCLIA [id number] [place] [address] [place] GFR/1.73 sq M.predicted MDRD (S/P/Bld) [Vol rate/Area] mL/min/{1.73_m2} Normal [facility] Comment on above: Order [...] GFR. Performed By: #### 2 4323-8, HSTNT, ####[facility] LABORATORYCLIA [id number] [place] [address] [place] Glucose [Mass/Vol] 137 mg/dL High 74-99 [facility] Comment on above: Order Comment: Speci men Type: BLOOD SPECIMEN Result Comment: The [place] [employer] (ADA) provides guidance for cutoff [...] Standards of Medical Care in Diabetes 2016, [place] [employer]. Diabetes Care. 2016.39(Suppl 1). Performed By: #### 2 4323-8, HSTNT, ####[facility] LABORATORYCLIA [id number] [place] [id number] [place] Potassium [Moles/Vol] 3.6 mmol/L Low 3.7-5.1 [facility] Comment on above: Order Comment: Speci men Type: BLOOD SPECIMEN Performed By: #### 2 4323-8, HSTNT, ####[facility] LABORATORYCLIA [id number] [place] [address] [place] Protein [Mass/Vol] 5.9 g/dL Low 6.3-8.0 [facility] Comment on above: Order Comment: Speci men Type: BLOOD SPECIMEN Performed By: #### 2 4323-8, HSTNT, 2776-05, ####[facility] LABORATORYCLIA [id number] [place], [place] [address] [place] [address] Sodium [Moles/Vol] 162 mmol/L High 136-144 [facility] Comment on above: Order Comment: Speci men Type: BLOOD SPECIMEN Performed By: #### 2 4323-8, HSTNT, 2776-05, ####[facility] LABORATORYCLIA [id number] [address] Urea nitrogen [Mass/Vol] 33 mg/dL High 9-24 [facility] Comment on above: Order Comment: Speci men Type: BLOOD SPECIMEN Performed By: #### 2 4323-8, HSTNT, 2776-05, ####[facility] LABORATORYCLIA [id number] [address] HIGH SENSITIVITY TROPONIN To n 06-14-2021 [...] #### H STNT ####[facility] LABORATORYCLIA [id number] [address] HIGH SENSITIVITY TAMIKO 22 ng/L High [...] Performed By: #### 2 4323-8, HSTNT, 2776-05, ####[facility]ORATORYCLIA [id number] [address] Magnesium SerPl-mCncon 06-14 Magnesium [Mass/Vol] 2.9 mg/dL High 1.7-2.3 [facility] Comment on above: Order Comment: Speci men Type: BLOOD SPECIMEN Performed By: #### 2 4323-8, HSTNT, 2776-05, ####[facility] LABORATORYCLIA [id number] [address] Magnesium [Mass/Vol] 3.0 mg/dL High 1.7-2.3 [facility] Comment on above: Order Comment: Speci men Type: BLOOD SPECIMEN Performed By: #### 2 4321-2, 2776-05, ####[facility] LABORATORYCLIA [id number] [address] NURSING PROGon 06-14-2021 NURSING PROG Normal [facility] NUTRITIONon 06-14-2021 NUTRITION Normal [facility] Phosphate SerPl-mCncon 06-14 Phosphate [Mass/Vol] 2.4 mg/dL Low 2.7-4.8 [facility] Comment on above: Order Comment: Speci men Type: BLOOD SPECIMEN Performed By: #### 2 4323-8, HSTNT, 2776-05, ####[facility]ORATORYCLIA [id number] [address] Phosphate [Mass/Vol] 3.2 mg/dL Normal 2.7-4.8 [facility] Comment on above: Order Comment: Speci men Type: BLOOD SPECIMEN Performed By: #### 2 4321-2, 2776-05, ####[facility] LABORATORYCLIA [id number] [place] [address] [place] THERAPY NTon 06-14-2021 THERAPY NT Normal [facility] THERAPY NT Normal [facility] THERAPY NT Normal [facility] US DVT LOWER BILon US DVT LOWER RAINER Normal [facility] ALLIED HEALTHon 06-13-2021 ALLIED HEALTH Normal [facility] Basic metabolic 2000 panelon 06-13-2021 Anion gap [Moles/Vol] 7 mmol/L Low 9-18 [facility] Comment on above: Order Comment: Speci men Type: BLOOD SPECIMEN Performed By: #### 2 4321-2, , 2776-05 ####[facility] LABORATORYCLIA [id number] [place] [address] [place] Calcium [Mass/Vol] 8.8 mg/dL Normal 8.5-10.2 [facility] Comment on above: Order Comment: Speci men Type: BLOOD SPECIMEN Performed By: #### 2 4321-2, , 2776-05 ####[facility]ORATORYCLIA [id number] [place] [address] [place] Chloride [Moles/Vol] 120 mmol/L High 97-105 [facility] Comment on above: Order Comment: Speci men Type: BLOOD SPECIMEN Performed By: #### 2 4321-2, , 2776-05 ####[facility] LABORATORYCLIA [id number] [place] [address] [place] CO2 [Moles/Vol] 28 mmol/L Normal 22-30 [facility] Comment on above: Order Comment: Speci men Type: BLOOD SPECIMEN Performed By: #### 2 4321-2, , 2776-05 ####[facility] [id number] [place] [address] [place] Creatinine [Mass/Vol] 0.78 mg/dL Normal 0.73-1.22 [facility] Comment on above: Order Comment: Speci men Type: BLOOD SPECIMEN Performed By: #### 2 4321-2, , 2776-05 ####[facility] [id number] [address] [place] GFR/1.73 sq M.predicted MDRD (S/P/Bld) [Vol rate/Area] mL/min/{1.73_m2} Normal [facility] Comment on above: Order [...] By: #### 2 4321-2, , 2776-05 ####[facility] [id number] [place] [id number] [place] [place] Glucose [Mass/Vol] 126 mg/dL High 74-99 [facility] Comment on above: Order Comment: Speci men Type: BLOOD SPECIMEN Result Comment: The [place] [employer] (ADA) provides guidance for cutoff [...] Standards of Medical Care in Diabetes 2016, [place] [employer]. Diabetes Care. 2016.39(Suppl 1). Performed By: #### 2 4321-2, 95586-3, 2776- ####[facility]ORATORYCLIA [id number] [place], [place] [address] [place] [address] STATES OF [facility] Potassium [Moles/Vol] 3.6 mmol/L Low 3.7-5.1 [facility] Comment on above: Order Comment: Speci men Type: BLOOD SPECIMEN Performed By: #### 2 4321-2, , 2776-05 ####[facility]ATORYCLIA [id number] [place], [place] [address] [place] [address] [place] Sodium [Moles/Vol] 155 mmol/L High 136-144 [facility] Comment on above: Order Comment: Speci men Type: BLOOD SPECIMEN Performed By: #### 2 4321-2, , 2776-05 ####[facility]ATORYCLIA [id number] [address] [place] Urea nitrogen [Mass/Vol] 36 mg/dL High 9-24 [facility] Comment on above: Order Comment: Speci men Type: BLOOD SPECIMEN Performed By: #### 2 4321-2, , 2776-05 ####[facility]ATORYCLIA [id number] [place], [place] [address] [place] [address] [place] Anion gap [Moles/Vol] 6 mmol/L Low 9-18 [facility] Comment on above: Order Comment: Speci men Type: BLOOD SPECIMEN Performed By: #### 2 4321-2, 2776-05, ####[facility]ORYCLIA [id number] [place] [address] [place] Calcium [Mass/Vol] 6.5 mg/dL Low 8.5-10.2 [facility] Comment on above: Order Comment: Speci men Type: BLOOD SPECIMEN Performed By: #### 2 4321-2, 2776-05, ####[facility]ATORYCLIA [id number] [place] [address] [place] Chloride [Moles/Vol] 124 mmol/L High 97-105 [facility] Comment on above: Order Comment: Speci men Type: BLOOD SPECIMEN Performed By: #### 2 4321-2, 2776-05, ####[facility]ORATORYCLIA [id number] [place], [place] [address] [place] [address] STATES OF [facility] CO2 [Moles/Vol] 24 mmol/L Normal 22-30 [facility] Comment on above: Order Comment: Speci men Type: BLOOD SPECIMEN Performed By: #### 2 4321-2, 2776-05, ####[facility]ORATORYCLIA [id number] [address] [place] Creatinine [Mass/Vol] 0.61 mg/dL Low 0.73-1.22 [facility] Comment on above: Order Comment: Speci men Type: BLOOD SPECIMEN Performed By: #### 2 4321-2, 2776-05, ####[facility]ORATORYCLIA [id number] [address] [place] GFR/1.73 sq M.predicted MDRD (S/P/Bld) [Vol rate/Area] mL/min/{1.73_m2} Normal [facility] Comment on above: Order [...] 2 4321-2, 2776-05, ####[facility]ATORYCLIA [id number] [address] [place] Glucose [Mass/Vol] 100 mg/dL High 74-99 [facility] Comment on above: Order Comment: Speci men Type: BLOOD SPECIMEN Result Comment: The [place] [employer] Association (ADA) provides guidance for cutoff [...] Standards of Medical Care in Diabetes 2016, [place] [employer]. Diabetes Care. 2016.39(Suppl 1). Performed By: #### 2 4321-2, 2776-, ####[facility]ATORYCLIA [id number] [address] STATES OF [facility] Potassium [Moles/Vol] 2.7 mmol/L Low 3.7-5.1 [facility] Comment on above: Order Comment: Speci men Type: BLOOD SPECIMEN Performed By: #### 2 4321-2, 2776-05, ####[facility]ORATORYCLIA [id number] [address] STATES [facility] Sodium [Moles/Vol] 154 mmol/L High 136-144 [facility] Comment on above: Order Comment: Speci men Type: BLOOD SPECIMEN Performed By: #### 2 4321-2, 2776-05, ####[facility]ATORYCLIA [id number] [address] [place] Urea nitrogen [Mass/Vol] 29 mg/dL High 9-24 [facility] Comment on above: Order Comment: Speci men Type: BLOOD SPECIMEN Performed By: #### 2 4321-2, 2776-05, ####[facility]ORATORYCLIA [id number] [address] [place] CASE MANAGEMon 06-13-2021 CASE MANAGEM Normal [facility] CBC panel Auto (Bld)on 06-13 Erythrocyte distribution width (RBC) [Ratio] 15.9 % High 11.5-15.0 [facility] Comment on above: Order Comment: Speci men Type: BLOOD SPECIMEN Performed By: #### 5 8410-2 ####[facility]ORATORYCLIA [id number] [address] Hematocrit (Bld) [Volume fraction] 34.3 % Low 39.0-51.0 [facility] Comment on above: Order Comment: Speci men Type: BLOOD SPECIMEN Performed By: #### 5 8410-2 ####[facility]ATORYCLIA [id number] [address] Hemoglobin (Bld) [Mass/Vol] 9.9 g/dL Low 13.0-17.0 [facility] Comment on above: Order Comment: Speci men Type: BLOOD SPECIMEN Performed By: #### 5 8410-2 ####[facility]ORATORYCLIA [id number] [address] MCH (RBC) [Entitic mass] 27.3 pg Normal 26.0-34.0 [facility] Comment on above: Order Comment: Speci men Type: BLOOD SPECIMEN Performed By: #### 5 8410-2 ####[facility]ATORYCLIA [id number] [address] MCHC (RBC) [Mass/Vol] 28.9 g/dL Low 30.5-36.0 [facility] Comment on above: Order Comment: Speci men Type: BLOOD SPECIMEN Performed By: #### 5 8410-2 ####[facility] LABORATORYCLIA [id number] [address] MCV (RBC) [Entitic vol] 94.5 fL Normal 80.0-100.0 [facility] Comment on above: Order Comment: Speci men Type: BLOOD SPECIMEN Performed By: #### 5 8410-2 ####[facility]ATORYCLIA [id number] [address] Nucleated RBC (Bld) [#/Vol] 10*3/uL Normal <0.01 [facility] Comment on above: Order Comment: Speci men Type: BLOOD SPECIMEN Performed By: #### 5 8410-2 ####[facility]ATORYCLIA [id number] [address] Platelet mean volume (Bld) [Entitic vol] 11.3 fL Normal 9.0-12.7 [facility] Comment on above: Order Comment: Speci men Type: BLOOD SPECIMEN Performed By: #### 5 8410-2 ####[facility]ATORYCLIA [id number] [address] Platelets (Bld) [#/Vol] 269 10*3/uL Normal 150-400 [facility] Comment on above: Order Comment: Speci men Type: BLOOD SPECIMEN Performed By: #### 5 8410-2 ####[facility]ATORYCLIA [id number] [address] RBC (Bld) [#/Vol] 3.63 10*6/uL Low 4.20-6.00 [facility] Comment on above: Order Comment: Speci men Type: BLOOD SPECIMEN Performed By: #### 5 8410-2 ####[facility]ORATORYCLIA [id number] [address] WBC (Bld) [#/Vol] 12.77 10*3/uL High 3.70-11.00 [facility] Comment on above: Order Comment: Speci men Type: BLOOD SPECIMEN Performed By: #### 5 8410-2 ####[facility]ORATORYCLIA [id number] [address] Gas and Carbon monoxide pane l (BldV)on 06-13-2021 Base excess Calc (BldV) [Moles/Vol] 5.7 mmol/L High 0-2 [facility] Comment on above: Order Comment: Speci men Type: VENOUS BLOOD SPECIMEN Performed By: #### 2 4344-4 ####[facility]ORATORYCLIA [id number] [address] Body temperature 99.5 [degF] Normal [facility] Comment on above: Order Comment: Speci men Type: VENOUS BLOOD SPECIMEN Performed By: #### 2 4344-4 ####[facility] LABORATORYCLIA [id number] [address] CALCIUM IONIZED, PH CORRECTED 1.24 mmol/L Normal 1.08-1.30 [facility] Comment on above: Order Comment: Speci men Type: VENOUS BLOOD SPECIMEN Performed By: #### 2 4344-4 ####[facility]ATORYCLIA [id number] [address] Calcium.ionized (BldV) [Mass/Vol] 1.23 mmol/L Normal 1.08-1.30 [facility] Comment on above: Order Comment: Speci men Type: VENOUS BLOOD SPECIMEN Performed By: #### 2 4344-4 ####[facility]ATORYCLIA [id number] [address] Carboxyhemoglobin (BldV) [Mass fraction] 1.2 % Normal 0.0-2.0 [facility] Comment on above: Order Comment: Speci men Type: VENOUS BLOOD SPECIMEN Result Comment: Carb oxyhemoglobin Reference Range for Smokers: 2.0-8.0% Performed By: #### 2 4344-4 ####[facility]ATORYCLIA [id number] [address] CO2 (BldV) [Partial pressure] 48 mm[Hg] Normal 42-55 [facility] Comment on above: Order Comment: Speci men Type: VENOUS BLOOD SPECIMEN Performed By: #### 2 4344-4 ####[facility]ATORYCLIA [id number] [address] CO2 [Moles/Vol] 28.2 mmol/L Normal 25-29 [facility] Comment on above: Order Comment: Speci men Type: VENOUS BLOOD SPECIMEN Performed By: #### 2 4344-4 ####[facility]ATORYCLIA [id number] [address] CO2 adjusted to patient's actual temperature (BldV) [Partial pressure] 49 mmHg Normal 42-55 [facility] Comment on above: Order Comment: Speci men Type: VENOUS BLOOD SPECIMEN Performed By: #### 2 4344-4 ####[facility]ORYCLIA [id number] [address] [place] Glucose [Mass/Vol] 131 mg/dL High 60-105 [facility] Comment on above: Order Comment: Speci men Type: VENOUS BLOOD SPECIMEN Performed By: #### 2 4344-4 ####[facility]ORATORYCLIA [id number] [address] HCO3 (Bld) [Moles/Vol] 30.6 mmol/L High 24-28 [facility] Comment on above: Order Comment: Speci men Type: VENOUS BLOOD SPECIMEN Performed By: #### 2 4344-4 ####[facility]ORYCLIA [id number] [address] [place] Hematocrit (Bld) [Volume fraction] 32.8 % Low 39.0-51.0 [facility] Comment on above: Order Comment: Speci men Type: VENOUS BLOOD SPECIMEN Performed By: #### 2 4344-4 ####[facility]ORYCLIA [id number] [address] STATES [place] Hemoglobin (Bld) [Mass/Vol] 10.6 g/dL Low 13.0-17.0 [facility] Comment on above: Order Comment: Speci men Type: VENOUS BLOOD SPECIMEN Performed By: #### 2 4344-4 ####[facility]ATORYCLIA [id number] [address] STATES [place] LITERS 6 Liters/min Normal [facility] Comment on above: Order Comment: Speci men Type: VENOUS BLOOD SPECIMEN Performed By: #### 2 4344-4 ####[facility] LABORATORYCLIA [id number] [place] [address] [place] Methemoglobin (Bld) [Mass fraction] 1.0 % Normal 0.0-1.5 [facility] Comment on above: Order Comment: Speci men Type: VENOUS BLOOD SPECIMEN Performed By: #### 2 4344-4 ####[facility]ATORYCLIA [id number] [place] [address] [facility] O2 THERAPY NC = Nasal Cannula Normal [facility] Comment on above: Order Comment: Speci men Type: VENOUS BLOOD SPECIMEN Performed By: #### 2 4344-4 ####[facility]ATORYCLIA [id number] [place], [place] [address] [place] [address] [place] Oxygen (BldV) [Partial pressure] 42 mm[Hg] Normal 35-45 [facility] Comment on above: Order Comment: Speci men Type: VENOUS BLOOD SPECIMEN Performed By: #### 2 4344-4 ####[facility]ATORYCLIA [id number] [place], [place] [address] [place] [address] Oxygen adjusted to patient's actual temperature (BldV) [Partial pressure] 43.8 mmHg Normal 35-45 [facility] Comment on above: Order Comment: Speci men Type: VENOUS BLOOD SPECIMEN Performed By: #### 2 4344-4 ####[facility]ATORYCLIA [id number] [place], [place] [address] [place] [address] [place] Oxygen saturation in Blood 76.7 % Normal 60-85 [facility] Comment on above: Order Comment: Speci men Type: VENOUS BLOOD SPECIMEN Performed By: #### 2 4344-4 ####[facility]ATORYCLIA [id number] [place] [address] [place] Oxyhemoglobin (BldV) [Mass fraction] 75 % Normal 60-85 [facility] Comment on above: Order Comment: Speci men Type: VENOUS BLOOD SPECIMEN Performed By: #### 2 4344-4 ####[facility]ATORYCLIA [id number] [place] [address] [place] pH (BldV) 7.42 [pH] Normal 7.32-7.42 [facility] Comment on above: Order Comment: Speci men Type: VENOUS BLOOD SPECIMEN Performed By: #### 2 4344-4 ####[facility]ATORYCLIA [id number] [address] pH adjusted to patient's actual temperature (BldV) 7.41 Normal 7.32-7.42 [facility] Comment on above: Order Comment: Speci men Type: VENOUS BLOOD SPECIMEN Performed By: #### 2 4344-4 ####[facility]ATORYCLIA [id number] [address] Potassium [Moles/Vol] 3.5 mmol/L Normal 3.5-5.0 [facility] Comment on above: Order Comment: Speci men Type: VENOUS BLOOD SPECIMEN Performed By: #### 2 4344-4 ####[facility]ATORYCLIA [id number] [address] Sodium [Moles/Vol] 157 mmol/L High 136-144 [facility] Comment on above: Order Comment: Speci men Type: VENOUS BLOOD SPECIMEN Performed By: #### 2 4344-4 ####[facility]ORATORYCLIA [id number] [address] Magnesium SerPl-mCncon 06-13 Magnesium [Mass/Vol] 3.0 mg/dL High 1.7-2.3 [facility] Comment on above: Order Comment: Speci men Type: BLOOD SPECIMEN Performed By: #### 2 4321-2, , 2776-05 ####[facility]ATORYCLIA [id number] [place], [place] [address] [place] [address] Magnesium [Mass/Vol] 2.2 mg/dL Normal 1.7-2.3 [facility] Comment on above: Order Comment: Speci men Type: BLOOD SPECIMEN Performed By: #### 2 4321-2, 2776-05, ####[facility]ORYCLIA [id number] [address] Phosphate SerPl-mCncon 06-13 Phosphate [Mass/Vol] 2.2 mg/dL Low 2.7-4.8 [facility] Comment on above: Order Comment: Speci men Type: BLOOD SPECIMEN Performed By: #### 2 4321-2, , 2776-05 ####[facility]ATORYCLIA [id number] [place], [place] [address] [place] [address] STATES OF [facility] Phosphate [Mass/Vol] 1.8 mg/dL Low 2.7-4.8 [facility] Comment on above: Order Comment: Speci men Type: BLOOD SPECIMEN Performed By: #### 2 4321-2, 2776-05, ####[facility]ATORYCLIA [id number] [address] XR CHEST 1V FRONTALon 2021 XR CHEST 1V FRONTAL Normal [facility] ALLIED HEALTHon 06-12-2021 ALLIED HEALTH Normal [facility] BRIEF OP NOTon 06-12-2021 BRIEF OP NOT Normal [facility] Bacteria Fld Culton 06-12-19 22 Bacteria identified Cx Nom (Body fld) CULTURE, BODY FLD: No growth 5 days GRAM STAIN: No organisms seen Moderate Polymorphonuclear leukocytes Normal [facility] Comment on above: Performed By: #### 6 11-4 ####[facility]ATORYCLIA [id number] [address] [place] Basic metabolic 2000 panelon 06-12-2021 Anion gap [Moles/Vol] 6 mmol/L Low 9-18 [facility] Comment on above: Order Comment: Speci men Type: BLOOD SPECIMEN Performed By: #### 2 777-1, 83257-0, ####[facility]ATORYCLIA [id number] [place], [place] [address] [place] [address] [place] OF [facility] Calcium [Mass/Vol] 8.7 mg/dL Normal 8.5-10.2 [facility] Comment on above: Order Comment: Speci men Type: BLOOD SPECIMEN Performed By: #### 2 777-1, , ####[facility]ATORYCLIA [id number] [place], [place] [address] [place] [address] [place] Chloride [Moles/Vol] 118 mmol/L High 97-105 [facility] Comment on above: Order Comment: Speci men Type: BLOOD SPECIMEN Performed By: #### 2 777-1, , ####[facility]ATORYCLIA [id number] [address] STATES OF [facility] CO2 [Moles/Vol] 28 mmol/L Normal 22-30 [facility] Comment on above: Order Comment: Speci men Type: BLOOD SPECIMEN Performed By: #### 2 777-1, , ####[facility]ATORYCLIA [id number] [address] STATES OF [facility] Creatinine [Mass/Vol] 0.77 mg/dL Normal 0.73-1.22 [facility] Comment on above: Order Comment: Speci men Type: BLOOD SPECIMEN Performed By: #### 2 777-1, , ####[facility]ATORYCLIA [id number] [address] [place] GFR/1.73 sq M.predicted MDRD (S/P/Bld) [Vol rate/Area] mL/min/{1.73_m2} Normal [facility] Comment on above: Order [...] actual GFR. Performed By: #### 2 777-1, 45068-3 ####[facility]ATORYCLIA [id number] [place] [address] [place] Glucose [Mass/Vol] 116 mg/dL High 74-99 [facility] Comment on above: Order Comment: Speci men Type: BLOOD SPECIMEN Result Comment: The [place] [employer] (ADA) provides guidance for cutoff [...] Standards of Medical Care in Diabetes 2016, [place] [employer]. Diabetes Care. 2016.39(Suppl 1). Performed By: #### 2 777-1, , ####[facility]ATORYCLIA [id number] [place] [address] [place] Potassium [Moles/Vol] 4.0 mmol/L Normal 3.7-5.1 [facility] Comment on above: Order Comment: Speci men Type: BLOOD SPECIMEN Performed By: #### 2 777-1, , ####[facility]ATORYCLIA [id number] [place] [address] [place] Sodium [Moles/Vol] 152 mmol/L High 136-144 [facility] Comment on above: Order Comment: Speci men Type: BLOOD SPECIMEN Performed By: #### 2 777-1, , ####[facility]ATORYCLIA [id number] [place] [address] [place] Urea nitrogen [Mass/Vol] 34 mg/dL High 9-24 [facility] Comment on above: Order Comment: Speci men Type: BLOOD SPECIMEN Performed By: #### 2 777-1, , ####[facility] LABORATORYCLIA [id number] [address] CBC panel Auto (Bld)on 06-12 Erythrocyte distribution width (RBC) [Ratio] 16.1 % High 11.5-15.0 [facility] Comment on above: Order Comment: Speci men Type: BLOOD SPECIMEN Performed By: #### 5 8410-2 ####[facility]ATORYCLIA [id number] [address] Hematocrit (Bld) [Volume fraction] 32.8 % Low 39.0-51.0 [facility] Comment on above: Order Comment: Speci men Type: BLOOD SPECIMEN Performed By: #### 5 8410-2 ####[facility]ATORYCLIA [id number] [address] Hemoglobin (Bld) [Mass/Vol] 9.9 g/dL Low 13.0-17.0 [facility] Comment on above: Order Comment: Speci men Type: BLOOD SPECIMEN Performed By: #### 5 8410-2 ####[facility]ATORYCLIA [id number] [address] MCH (RBC) [Entitic mass] 28.4 pg Normal 26.0-34.0 [facility] Comment on above: Order Comment: Speci men Type: BLOOD SPECIMEN Performed By: #### 5 8410-2 ####[facility]ATORYCLIA [id number] [address] MCHC (RBC) [Mass/Vol] 30.2 g/dL Low 30.5-36.0 [facility] Comment on above: Order Comment: Speci men Type: BLOOD SPECIMEN Performed By: #### 5 8410-2 ####[facility]ATORYCLIA [id number] [address] MCV (RBC) [Entitic vol] 94.3 fL Normal 80.0-100.0 [facility] Comment on above: Order Comment: Speci men Type: BLOOD SPECIMEN Performed By: #### 5 8410-2 ####[facility]ATORYCLIA [id number] [address] Nucleated RBC (Bld) [#/Vol] 10*3/uL Normal <0.01 [facility] Comment on above: Order Comment: Speci men Type: BLOOD SPECIMEN Performed By: #### 5 8410-2 ####[facility]ATORYCLIA [id number] [address] Platelet mean volume (Bld) [Entitic vol] 11.2 fL Normal 9.0-12.7 [facility] Comment on above: Order Comment: Speci men Type: BLOOD SPECIMEN Performed By: #### 5 8410-2 ####[facility]ATORYCLIA [id number] [address] Platelets (Bld) [#/Vol] 218 10*3/uL Normal 150-400 [facility] Comment on above: Order Comment: Speci men Type: BLOOD SPECIMEN Performed By: #### 5 8410-2 ####[facility]ATORYCLIA [id number] [address] RBC (Bld) [#/Vol] 3.48 10*6/uL Low 4.20-6.00 [facility] Comment on above: Order Comment: Speci men Type: BLOOD SPECIMEN Performed By: #### 5 8410-2 ####[facility]ATORYCLIA [id number] [address] WBC (Bld) [#/Vol] 13.33 10*3/uL High 3.70-11.00 [facility] Comment on above: Order Comment: Speci men Type: BLOOD SPECIMEN Performed By: #### 5 8410-2 ####[facility]ATORYCLIA [id number] [address] CONSULT PROGon 06-12-2021 CONSULT PROG Normal [facility] CT DRN PLACE PERIT/RETROP FL BIon 06-12-[address] PERIT/RETROP FL BI Normal [facility] HISTORY PHYSICALon 2 HISTORY PHYSICAL Normal [facility] Magnesium SerPl-mCncon 06-12 Magnesium [Mass/Vol] 2.7 mg/dL High 1.7-2.3 [facility] Comment on above: Order Comment: Speci men Type: BLOOD SPECIMEN Performed By: #### 2 777-1, 03816-5, 13273-8 ####[facility]ATORYCLIA [id number] [address] [place] PT panel Coag (PPP)on 2021 INR Coag (PPP) [Relative time] 1.1 {INR} Normal 0.9-1.3 [facility] Comment on above: Order Comment: Speci men Type: BLOOD SPECIMEN Result Comment: Yris min K Antagonist (VKA) Therapeutic Range: INR 2 to 3 (Target INR of 2.5)Note: For patients treated with VKA drugs, such as warfarin, the [place] [employer] 2012 Guideline recommends [...] #### 3 4528-0 ####[facility]ATORYCLIA [id number] [address] [place] PT Coag (PPP) [Time] 11.9 s Normal 9.7-13.0 [facility] Comment on above: Order Comment: Speci men Type: BLOOD SPECIMEN Performed By: #### 3 4528-0 ####[facility]ATORYCLIA [id number] [place], [place] [address] [place] [address] [place] Phosphate SerPl-mCncon 06-12 Phosphate [Mass/Vol] 2.2 mg/dL Low 2.7-4.8 [facility] Comment on above: Order Comment: Speci men Type: BLOOD SPECIMEN Performed By: #### 2 777-1, 68731-4, 33724-5 ####[facility]ATORYCLIA [id number] [address] [place] XR ABDOMEN 1V SUPINEon 06-12 XR ABDOMEN 1V SUPINE Normal [facility] ALLIED HEALTHon 06-11-2021 ALLIED HEALTH Normal [facility] Bacteria Bld Culton 06-11-19 22 Bacteria identified Cx Nom (Bld) CULTURE, BLOOD: No growth 5 days Normal [facility] Comment on above: Performed By: #### 6 00-7 ####[facility]ORATORYCLIA [id number] [address] OF [facility] Bacteria identified Cx Nom (Bld) CULTURE, BLOOD: No growth 5 days Normal [facility] Comment on above: Performed By: #### 6 00-7 ####[facility] LABORATORYCLIA [id number] [address] [place] Bacteria Ur Culton 2 Bacteria identified Cx Nom (U) CULTURE, URINE: No growth (<1,000 CFU/ml) [facility] Comment on above: Performed By: #### 6 30-4 ####[facility]ORATORYCLIA [id number] [place] [address] [place] Basic metabolic 2000 panelon 06-11-2021 Anion gap [Moles/Vol] 9 mmol/L Normal 9-18 [facility] Comment on above: Order Comment: Speci men Type: BLOOD SPECIMEN Performed By: #### 1 9123-9, 2777-1, 73709-4 ####[facility]ORATORYCLIA [id number] [address] STATES OF [facility] Calcium [Mass/Vol] 8.5 mg/dL Normal 8.5-10.2 [facility] Comment on above: Order Comment: Speci men Type: BLOOD SPECIMEN Performed By: #### 1 9123-9, 2777-1, 28449-1 ####[facility]ORATORYCLIA [id number] [address] STATES OF [facility] Chloride [Moles/Vol] 118 mmol/L High 97-105 [facility] Comment on above: Order Comment: Speci men Type: BLOOD SPECIMEN Performed By: #### 1 9123-9, 2777-, 79139-8 ####[facility] LABORATORYCLIA [id number] [address] CO2 [Moles/Vol] 27 mmol/L Normal 22-30 [facility] Comment on above: Order Comment: Speci men Type: BLOOD SPECIMEN Performed By: #### 1 9123-9, 2777-, 40259-9 ####[facility]ATORYCLIA [id number] [address] STATES OF [facility] Creatinine [Mass/Vol] 0.75 mg/dL Normal 0.73-1.22 [facility] Comment on above: Order Comment: Speci men Type: BLOOD SPECIMEN Performed By: #### 1 9123-9, 2777-1, 64232-6 ####[facility]ATORYCLIA [id number] [address] [place] GFR/1.73 sq M.predicted MDRD (S/P/Bld) [Vol rate/Area] mL/min/{1.73_m2} Normal [facility] Comment on above: Order [...] GFR. Performed By: #### 1 9123-9, 2776-, 68366-0 ####[facility]ORATORYCLIA [id number] [place] [address] [place] Glucose [Mass/Vol] 142 mg/dL High 74-99 [facility] Comment on above: Order Comment: Speci men Type: BLOOD SPECIMEN Result Comment: The [place] Diabetes Association (ADA) provides guidance for cutoff [...] Standards of Medical Care in Diabetes 2016, [place] [employer]. Diabetes Care. 2016.39(Suppl 1). Performed By: #### 1 9123-9, 2776-05, ####[facility]ATORYCLIA [id number] [place] [address] [place] Potassium [Moles/Vol] 3.6 mmol/L Low 3.7-5.1 [facility] Comment on above: Order Comment: Speci men Type: BLOOD SPECIMEN Performed By: #### 1 9123-9, 2776-05, 21601-4 ####[facility]ATORYCLIA [id number] [address] [place] Sodium [Moles/Vol] 154 mmol/L High 136-144 [facility] Comment on above: Order Comment: Speci men Type: BLOOD SPECIMEN Performed By: #### 1 9123-9, 27711-04, 78674-8 ####[facility]ATORYCLIA [id number] [address] Urea nitrogen [Mass/Vol] 31 mg/dL High 9-24 [facility] Comment on above: Order Comment: Speci men Type: BLOOD SPECIMEN Performed By: #### 1 9123-9, 2777-1, 39141-0 ####[facility]ATORYCLIA [id number] [address] C diff Tox gens Stl Ql MEGAN+p robeon 06-11-2021 C. difficile toxin genes MEGAN+probe Ql (Stl) Negative Normal Negative for C. difficile toxin by PCR [facility] Comment on above: Order Comment: Speci men Type: STOOL SPECIMEN Performed By: #### 5 4067-4 ####[facility]ATORYCLIA [id number] [address] CBC W Auto Differential pane l (Bld)on 06-11-2021 Basophils (Bld) [#/Vol] 0.03 10*3/uL Normal <0.11 [facility] Comment on above: Order Comment: Speci men Type: BLOOD SPECIMEN Performed By: #### 5 7021-8 ####[facility]ATORYCLIA [id number] [address] Basophils/100 WBC (Bld) 0.2 % Normal [facility] Comment on above: Order Comment: Speci men Type: BLOOD SPECIMEN Performed By: #### 5 7021-8 ####[facility]ORATORYCLIA [id number] [address] Differential cell count method Nom (Bld) Auto Normal [facility] Comment on above: Order Comment: Speci men Type: BLOOD SPECIMEN Performed By: #### 5 7021-8 ####[facility]ATORYCLIA [id number] [address] Eosinophils (Bld) [#/Vol] 0.19 10*3/uL Normal <0.46 [facility] Comment on above: Order Comment: Speci men Type: BLOOD SPECIMEN Performed By: #### 5 7021-8 ####[facility]ATORYCLIA [id number] [address] Eosinophils/100 WBC (Bld) 1.5 % Normal [facility] Comment on above: Order Comment: Speci men Type: BLOOD SPECIMEN Performed By: #### 5 7021-8 ####[facility]ATORYCLIA [id number] [address] Erythrocyte distribution width (RBC) [Ratio] 16.3 % High 11.5-15.0 [facility] Comment on above: Order Comment: Speci men Type: BLOOD SPECIMEN Performed By: #### 5 7021-8 ####[facility]ATORYCLIA [id number] [address] Hematocrit (Bld) [Volume fraction] 32.1 % Low 39.0-51.0 [facility] Comment on above: Order Comment: Speci men Type: BLOOD SPECIMEN Performed By: #### 5 7021-8 ####[facility]ATORYCLIA [id number] [address] Hemoglobin (Bld) [Mass/Vol] 9.3 g/dL Low 13.0-17.0 [facility] Comment on above: Order Comment: Speci men Type: BLOOD SPECIMEN Performed By: #### 5 7021-8 ####[facility]ATORYCLIA [id number] [address] IMMATURE GRAN % 0.6 % Normal [facility] Comment on above: Order Comment: Speci men Type: BLOOD SPECIMEN Performed By: #### 5 7021-8 ####[facility]ORYCLIA [id number] [address] IMMATURE GRAN ABS 0.08 k/uL Normal <0.10 [facility] Comment on above: Order Comment: Speci men Type: BLOOD SPECIMEN Performed By: #### 5 7021-8 ####[facility]ATORYCLIA [id number] [address] Lymphocytes (Bld) [#/Vol] 1.65 10*3/uL Normal 1.00-4.00 [facility] Comment on above: Order Comment: Speci men Type: BLOOD SPECIMEN Performed By: #### 5 7021-8 ####[facility]ATORYCLIA [id number] [address] Lymphocytes/100 WBC (Bld) 12.8 % Normal [facility] Comment on above: Order Comment: Speci men Type: BLOOD SPECIMEN Performed By: #### 5 7021-8 ####[facility]ATORYCLIA [id number] [address] MCH (RBC) [Entitic mass] 27.2 pg Normal 26.0-34.0 [facility] Comment on above: Order Comment: Speci men Type: BLOOD SPECIMEN Performed By: #### 5 7021-8 ####[facility]ATORYCLIA [id number] [address] MCHC (RBC) [Mass/Vol] 29.0 g/dL Low 30.5-36.0 [facility] Comment on above: Order Comment: Speci men Type: BLOOD SPECIMEN Performed By: #### 5 7021-8 ####[facility]ATORYCLIA [id number] [address] MCV (RBC) [Entitic vol] 93.9 fL Normal 80.0-100.0 [facility] Comment on above: Order Comment: Speci men Type: BLOOD SPECIMEN Performed By: #### 5 7021-8 ####[facility]ATORYCLIA [id number] [address] Monocytes (Bld) [#/Vol] 0.68 10*3/uL Normal <0.87 [facility] Comment on above: Order Comment: Speci men Type: BLOOD SPECIMEN Performed By: #### 5 7021-8 ####[facility]ORATORYCLIA [id number] [address] Monocytes/100 WBC (Bld) 5.3 % Normal [facility] Comment on above: Order Comment: Speci men Type: BLOOD SPECIMEN Performed By: #### 5 7021-8 ####[facility]ATORYCLIA [id number] [address] Neutrophils (Bld) [#/Vol] 10.22 10*3/uL High 1.45-7.50 [facility] Comment on above: Order Comment: Speci men Type: BLOOD SPECIMEN Performed By: #### 5 7021-8 ####[facility]ORYCLIA [id number] [address] Neutrophils/100 WBC (Bld) 79.6 % Normal [facility] Comment on above: Order Comment: Speci men Type: BLOOD SPECIMEN Performed By: #### 5 7021-8 ####[facility]ATORYCLIA [id number] [address] Nucleated RBC (Bld) [#/Vol] 10*3/uL Normal <0.01 [facility] Comment on above: Order Comment: Speci men Type: BLOOD SPECIMEN Performed By: #### 5 7021-8 ####[facility]ORYCLIA [id number] [address] Nucleated RBC/100 WBC (Bld) [Ratio] 0.0 /100 WBC Normal 0.0 [facility] Comment on above: Order Comment: Speci men Type: BLOOD SPECIMEN Performed By: #### 5 7021-8 ####[facility]ATORYCLIA [id number] [address] Platelet mean volume (Bld) [Entitic vol] 11.1 fL Normal 9.0-12.7 [facility] Comment on above: Order Comment: Speci men Type: BLOOD SPECIMEN Performed By: #### 5 7021-8 ####[facility]ATORYCLIA [id number] [place] Platelets (Bld) [#/Vol] 188 10*3/uL Normal 150-400 [facility] Comment on above: Order Comment: Speci men Type: BLOOD SPECIMEN Performed By: #### 5 7021-8 ####[facility]ATORYCLIA [id number] [address] RBC (Bld) [#/Vol] 3.42 10*6/uL Low 4.20-6.00 [facility] Comment on above: Order Comment: Speci men Type: BLOOD SPECIMEN Performed By: #### 5 7021-8 ####[facility]ATORYCLIA [id number] [address] WBC (Bld) [#/Vol] 12.85 10*3/uL High 3.70-11.00 [facility] Comment on above: Order Comment: Speci men Type: BLOOD SPECIMEN Performed By: #### 5 7021-8 ####[facility]ATORYCLIA [id number] [address] CBC panel Auto (Bld)on 06-11 Erythrocyte distribution width (RBC) [Ratio] 16.2 % High 11.5-15.0 [facility] Comment on above: Order Comment: Speci men Type: BLOOD SPECIMEN Performed By: #### 5 8410-2 ####[facility]ATORYCLIA [id number] [address] Hematocrit (Bld) [Volume fraction] 34.5 % Low 39.0-51.0 [facility] Comment on above: Order Comment: Speci men Type: BLOOD SPECIMEN Performed By: #### 5 8410-2 ####[facility]ATORYCLIA [id number] [address] Hemoglobin (Bld) [Mass/Vol] 10.3 g/dL Low 13.0-17.0 [facility] Comment on above: Order Comment: Speci men Type: BLOOD SPECIMEN Performed By: #### 5 8410-2 ####[facility]ATORYCLIA [id number] [address] MCH (RBC) [Entitic mass] 28.1 pg Normal 26.0-34.0 [facility] Comment on above: Order Comment: Speci men Type: BLOOD SPECIMEN Performed By: #### 5 8410-2 ####[facility]ATORYCLIA [id number] [address] MCHC (RBC) [Mass/Vol] 29.9 g/dL Low 30.5-36.0 [facility] Comment on above: Order Comment: Speci men Type: BLOOD SPECIMEN Performed By: #### 5 8410-2 ####[facility]ATORYCLIA [id number] [address] MCV (RBC) [Entitic vol] 94.3 fL Normal 80.0-100.0 [facility] Comment on above: Order Comment: Speci men Type: BLOOD SPECIMEN Performed By: #### 5 8410-2 ####[facility]ATORYCLIA [id number] [address] Nucleated RBC (Bld) [#/Vol] 10*3/uL Normal <0.01 [facility] Comment on above: Order Comment: Speci men Type: BLOOD SPECIMEN Performed By: #### 5 8410-2 ####[facility]ATORYCLIA [id number] [address] Platelet mean volume (Bld) [Entitic vol] 10.9 fL Normal 9.0-12.7 [facility] Comment on above: Order Comment: Speci men Type: BLOOD SPECIMEN Performed By: #### 5 8410-2 ####[facility]ATORYCLIA [id number] [address] Platelets (Bld) [#/Vol] 210 10*3/uL Normal 150-400 [facility] Comment on above: Order Comment: Speci men Type: BLOOD SPECIMEN Performed By: #### 5 8410-2 ####[facility]ATORYCLIA [id number] [address] RBC (Bld) [#/Vol] 3.66 10*6/uL Low 4.20-6.00 [facility] Comment on above: Order Comment: Speci men Type: BLOOD SPECIMEN Performed By: #### 5 8410-2 ####[facility]ATORYCLIA [id number] [address] WBC (Bld) [#/Vol] 13.03 10*3/uL High 3.70-11.00 [facility] Comment on above: Order Comment: Speci men Type: BLOOD SPECIMEN Performed By: #### 5 8410-2 ####[facility]ATORYCLIA [id number] [address] CONSULT PROGon 06-11-2021 CONSULT PROG Normal [facility] CONSULT PROG Normal [facility] CONSULT PROG Normal [facility] CT ABD/PEL W IVCONon 022 CT ABD/PEL W IVCON Invalid Interpretation Code [facility] Magnesium SerPl-mCncon 06-11 Magnesium [Mass/Vol] 2.7 mg/dL High 1.7-2.3 [facility] Comment on above: Order Comment: Speci men Type: BLOOD SPECIMEN Performed By: #### 1 9123-9, 2777-1, 00850-3 ####[facility]ATORYCLIA [id number] [address] Phosphate SerPl-mCncon 06-11 Phosphate [Mass/Vol] 2.5 mg/dL Low 2.7-4.8 [facility] Comment on above: Order Comment: Speci men Type: BLOOD SPECIMEN Performed By: #### 1 9123-9, 2777-1, 26627-1 ####[facility]ATORYCLIA [id number] [address] Basic metabolic 2000 panelon 06-10-2021 Anion gap [Moles/Vol] 7 mmol/L Low 9-18 [facility] Comment on above: Order Comment: Speci men Type: BLOOD SPECIMEN Performed By: #### 2 777-1, 03750-0, , HFP ####[facility]ATORYCLIA [id number] [place] [address] [place] Calcium [Mass/Vol] 8.5 mg/dL Normal 8.5-10.2 [facility] Comment on above: Order Comment: Speci men Type: BLOOD SPECIMEN Performed By: #### 2 777-1, 18952-0, , HFP ####[facility]ATORYCLIA [id number] [place] [address] [place] Chloride [Moles/Vol] 118 mmol/L High 97-105 [facility] Comment on above: Order Comment: Speci men Type: BLOOD SPECIMEN Performed By: #### 2 777-1, 91607-5, , HFP ####[facility]ATORYCLIA [id number] [place] [address] [place] CO2 [Moles/Vol] 26 mmol/L Normal 22-30 [facility] Comment on above: Order Comment: Speci men Type: BLOOD SPECIMEN Performed By: #### 2 777-1, 51317-0, , HFP ####[facility]ATORYCLIA [id number] [address] [place] Creatinine [Mass/Vol] 0.70 mg/dL Low 0.73-1.22 [facility] Comment on above: Order Comment: Speci men Type: BLOOD SPECIMEN Performed By: #### 2 777-1, 39124-1, , HFP ####[facility]ATORYCLIA [id number] [place] [address] [place] GFR/1.73 sq M.predicted MDRD (S/P/Bld) [Vol rate/Area] mL/min/{1.73_m2} Normal [facility] Comment on above: Order Comment: Speci men Type: BLOOD SPECIMEN Result Comment: >60e GFR (Estimated GFR) Units of measure: mL/min/1.73 meters squaredeGFR is derived from the reexpressed MDRD Study equation using the following parameters: serum creatinine, age, gender and race. The creatinine assay has been calibrated to be traceable to IDPR. An eGFR <60 mL/min/1.73m2 for >3 months is consistent with chronic kidney disease. Refer to KDOQI guidelines for clinical interpretation. In patients with unstable renal function, e.g. those with acute kidney injury, the eGFR may not accurately reflect actual GFR. Performed By: #### 2 777-1, 52573-0, , [facility] ####[facility] LABORATORYIA [id number] [place] [address] [place] Glucose [Mass/Vol] 135 mg/dL High 74-99 [facility] Comment on above: Order Comment: Speci men Type: BLOOD SPECIMEN Result Comment: The [place] Diabetes Association (ADA) provides guidance for cutoff [...] Standards of Medical Care in Diabetes 2016, [place] [employer]. Diabetes Care. 2016.39(Suppl 1). Performed By: #### 2 777-1, 97385-3, , [facility] ####[facility] LABORATORYIA [id number] [place] [address] [place] Potassium [Moles/Vol] 3.9 mmol/L Normal 3.7-5.1 [facility] Comment on above: Order Comment: Speci men Type: BLOOD SPECIMEN Performed By: #### 2 777-1, 26617-1, , [facility] ####[facility]ATORYCLIA [id number] [place] [address] [place] Sodium [Moles/Vol] 151 mmol/L High 136-144 [facility] Comment on above: Order Comment: Speci men Type: BLOOD SPECIMEN Performed By: #### 2 777-1, 92733-4, , [facility] ####[facility]ORYCLIA [id number] [address] Urea nitrogen [Mass/Vol] 27 mg/dL High 9-24 [facility] Comment on above: Order Comment: Speci men Type: BLOOD SPECIMEN Performed By: #### 2 777-1, 64712-1, , [facility] ####[facility]ATORYCLIA [id number] [address] CASE MANAGEMon 06-10-2021 CASE MANAGEM Normal [facility] CBC panel Auto (Bld)on 06-10 Erythrocyte distribution width (RBC) [Ratio] 16.2 % High 11.5-15.0 [facility] Comment on above: Order Comment: Speci men Type: BLOOD SPECIMEN Performed By: #### 5 8410-2 ####[facility]ATORYCLIA [id number] [address] Hematocrit (Bld) [Volume fraction] 34.8 % Low 39.0-51.0 [facility] Comment on above: Order Comment: Speci men Type: BLOOD SPECIMEN Performed By: #### 5 8410-2 ####[facility]ORYCLIA [id number] [address] Hemoglobin (Bld) [Mass/Vol] 10.2 g/dL Low 13.0-17.0 [facility] Comment on above: Order Comment: Speci men Type: BLOOD SPECIMEN Performed By: #### 5 8410-2 ####[facility]ORYCLIA [id number] [address] MCH (RBC) [Entitic mass] 27.1 pg Normal 26.0-34.0 [facility] Comment on above: Order Comment: Speci men Type: BLOOD SPECIMEN Performed By: #### 5 8410-2 ####[facility]ATORYCLIA [id number] [address] MCHC (RBC) [Mass/Vol] 29.3 g/dL Low 30.5-36.0 [facility] Comment on above: Order Comment: Speci men Type: BLOOD SPECIMEN Performed By: #### 5 8410-2 ####[facility]ATORYCLIA [id number] [address] MCV (RBC) [Entitic vol] 92.6 fL Normal 80.0-100.0 [facility] Comment on above: Order Comment: Speci men Type: BLOOD SPECIMEN Performed By: #### 5 8410-2 ####[facility]ATORYCLIA [id number] [address] Nucleated RBC (Bld) [#/Vol] 10*3/uL Normal <0.01 [facility] Comment on above: Order Comment: Speci men Type: BLOOD SPECIMEN Performed By: #### 5 8410-2 ####[facility]ATORYCLIA [id number] [address] Platelet mean volume (Bld) [Entitic vol] 10.4 fL Normal 9.0-12.7 [facility] Comment on above: Order Comment: Speci men Type: BLOOD SPECIMEN Performed By: #### 5 8410-2 ####[facility]ATORYCLIA [id number] [address] Platelets (Bld) [#/Vol] 206 10*3/uL Normal 150-400 [facility] Comment on above: Order Comment: Speci men Type: BLOOD SPECIMEN Performed By: #### 5 8410-2 ####[facility]ORYCLIA [id number] [address] RBC (Bld) [#/Vol] 3.76 10*6/uL Low 4.20-6.00 [facility] Comment on above: Order Comment: Speci men Type: BLOOD SPECIMEN Performed By: #### 5 8410-2 ####[facility]ORATORYCLIA [id number] [place] [address] [facility] WBC (Bld) [#/Vol] 11.36 10*3/uL High 3.70-11.00 [facility] Comment on above: Order Comment: Speci men Type: BLOOD SPECIMEN Performed By: #### 5 8410-2 ####[facility]ATORYCLIA [id number] [address] HEPATIC FUNCTION PNLon 06-10 Albumin [Mass/Vol] 3.1 g/dL Low 3.9-4.9 [facility] Comment on above: Order Comment: Speci men Type: BLOOD SPECIMEN Performed By: #### 2 777-1, 26297-3, , HFP ####[facility]ATORYCLIA [id number] [place], [place] [id number] [place] [address] OF [facility] ALP [Catalytic activity/Vol] 73 U/L Normal 38-113 [facility] Comment on above: Order Comment: Speci men Type: BLOOD SPECIMEN Performed By: #### 2 777-1, 29036-7, , HFP ####[facility]ATORYCLIA [id number] [address] STATES OF [facility] ALT With P-5'-P [Catalytic activity/Vol] 64 U/L High 10-54 [facility] Comment on above: Order Comment: Speci men Type: BLOOD SPECIMEN Performed By: #### 2 777-1, 45514-3, , HFP ####[facility]ATORYCLIA [id number] [place], [place] [id number] [place] [address] OF [place] AST With P-5'-P [Catalytic activity/Vol] 44 U/L High 14-40 [facility] Comment on above: Order Comment: Speci men Type: BLOOD SPECIMEN Performed By: #### 2 777-1, 45645-7, , HFP ####[facility]ATORYCLIA [id number] [place], [place] [id number] [place] [address] [place] Bilirubin [Mass/Vol] 0.5 mg/dL Normal 0.2-1.3 [facility] Comment on above: Order Comment: Speci men Type: BLOOD SPECIMEN Performed By: #### 2 777-1, 06919-5, , [facility] ####[facility]ATORYCLIA [id number] [address] Bilirubin.conjugated [Mass/Vol] mg/dL Normal <0.2 [facility] Comment on above: Order Comment: Speci men Type: BLOOD SPECIMEN Performed By: #### 2 777-1, 24111-0, , [facility] ####[facility]ATORYCLIA [id number] [address] Protein [Mass/Vol] 5.7 g/dL Low 6.3-8.0 [facility] Comment on above: Order Comment: Speci men Type: BLOOD SPECIMEN Performed By: #### 2 777-1, , , [facility] ####[facility]ORATORYCLIA [id number] [address] LEVETIRACETAMon 06-10-2021 levETIRAcetam [Mass/Vol] 57.7 ug/mL High 12.0-46.0 [facility] Comment on above: Order [...] developed and its performance characteristics determined by [facility]'s Isrrael Perez [facility] [place] ( [facility]). It has not been cleared or approved by the FDA. [facility] is regulated under CLIA as qualified to perform high complexity testing. This test is used for clinical purposes. It should not be regarded as investigational or for research. Performed By: #### L DARY ####[facility] LABCLIA [id number] NILESH [id number] [address] [place] Magnesium SerPl-mCncon 06-10 Magnesium [Mass/Vol] 2.7 mg/dL High 1.7-2.3 [facility] Comment on above: Order Comment: Speci men Type: BLOOD SPECIMEN Performed By: #### 2 777-1, 91026-7, , [facility] ####[facility] LABORATORYCLIA [id number] [place] [address] [place] Phosphate SerPl-ncon 06-10 Phosphate [Mass/Vol] 1.8 mg/dL Low 2.7-4.8 [facility] Comment on above: Order Comment: Speci men Type: BLOOD SPECIMEN Performed By: #### 2 777-1, 93528-5, , [facility] ####[facility] LABORATORYCLIA [id number] [place] [address] [place] ALLIED HEALTHon 06-09-2021 ALLIED HEALTH Normal [facility] ALLIED HEALTH Normal [facility] ALLIED HEALTH Normal [facility] ALLIED HEALTH Normal [facility] Basic metabolic 2000 panelon 06-09-2021 Anion gap [Moles/Vol] 8 mmol/L Low 9-18 [facility] Comment on above: Order Comment: Speci men Type: BLOOD SPECIMEN Performed By: #### 2 4321-2, 2776-05, ####[facility]ATORYCLIA [id number] [place] [address] [place] Calcium [Mass/Vol] 8.3 mg/dL Low 8.5-10.2 [facility] Comment on above: Order Comment: Speci men Type: BLOOD SPECIMEN Performed By: #### 2 4321-2, 2776-05, ####[facility]ATORYCLIA [id number] [place] [address] [place] Chloride [Moles/Vol] 116 mmol/L High 97-105 [facility] Comment on above: Order Comment: Speci men Type: BLOOD SPECIMEN Performed By: #### 2 4321-2, 2776-, ####[facility]ATORYCLIA [id number] [place], [place] [address] [place] [address] [place] [facility] CO2 [Moles/Vol] 27 mmol/L Normal 22-30 [facility] Comment on above: Order Comment: Speci men Type: BLOOD SPECIMEN Performed By: #### 2 4321-2, 2776-05, ####[facility]ATORYCLIA [id number] [address] [place] Creatinine [Mass/Vol] 0.70 mg/dL Low 0.73-1.22 [facility] Comment on above: Order Comment: Speci men Type: BLOOD SPECIMEN Performed By: #### 2 4321-2, 2776-05, ####[facility]ATORYCLIA [id number] [address] [place] GFR/1.73 sq M.predicted MDRD (S/P/Bld) [Vol rate/Area] mL/min/{1.73_m2} Normal [facility] Comment on above: Order [...] 2 4321-2, 2776-05, ####[facility]ATORYCLIA [id number] [place], [place] [address] [place] [address] [place] Glucose [Mass/Vol] 123 mg/dL High 74-99 [facility] Comment on above: Order Comment: Speci men Type: BLOOD SPECIMEN Result Comment: The [place] [employer] (ADA) provides guidance for cutoff [...] Standards of Medical Care in Diabetes 2016, [place] [employer]. Diabetes Care. 2016.39(Suppl 1). Performed By: #### 2 4321-2, 2776-05, ####[facility]ATORYCLIA [id number] [place] [address] [place] Potassium [Moles/Vol] 3.5 mmol/L Low 3.7-5.1 [facility] Comment on above: Order Comment: Speci men Type: BLOOD SPECIMEN Performed By: #### 2 1-2, 2776-05, ####[facility]ATORYCLIA [id number] [address] STATES [facility] Sodium [Moles/Vol] 151 mmol/L High 136-144 [facility] Comment on above: Order Comment: Speci men Type: BLOOD SPECIMEN Performed By: #### 2 1-2, 2776-05, ####[facility]ATORYCLIA [id number] [place] [address] [place] Urea nitrogen [Mass/Vol] 39 mg/dL High 9-24 [facility] Comment on above: Order Comment: Speci men Type: BLOOD SPECIMEN Performed By: #### 2 1-2, 2776-05, ####[facility]ATORYCLIA [id number] [address] [place] CBC panel Auto (Bld)on 06-09 Erythrocyte distribution width (RBC) [Ratio] 16.2 % High 11.5-15.0 [facility] Comment on above: Order Comment: Speci men Type: BLOOD SPECIMEN Performed By: #### 5 8410-2 ####[facility]ATORYCLIA [id number] [address] Hematocrit (Bld) [Volume fraction] 33.7 % Low 39.0-51.0 [facility] Comment on above: Order Comment: Speci men Type: BLOOD SPECIMEN Performed By: #### 5 8410-2 ####[facility]ATORYCLIA [id number] [address] Hemoglobin (Bld) [Mass/Vol] 10.2 g/dL Low 13.0-17.0 [facility] Comment on above: Order Comment: Speci men Type: BLOOD SPECIMEN Performed By: #### 5 8410-2 ####[facility]ATORYCLIA [id number] [address] MCH (RBC) [Entitic mass] 27.4 pg Normal 26.0-34.0 [facility] Comment on above: Order Comment: Speci men Type: BLOOD SPECIMEN Performed By: #### 5 8410-2 ####[facility]ATORYCLIA [id number] [address] MCHC (RBC) [Mass/Vol] 30.3 g/dL Low 30.5-36.0 [facility] Comment on above: Order Comment: Speci men Type: BLOOD SPECIMEN Performed By: #### 5 8410-2 ####[facility]ATORYCLIA [id number] [address] MCV (RBC) [Entitic vol] 90.6 fL Normal 80.0-100.0 [facility] Comment on above: Order Comment: Speci men Type: BLOOD SPECIMEN Performed By: #### 5 8410-2 ####[facility]ATORYCLIA [id number] [address] Nucleated RBC (Bld) [#/Vol] 10*3/uL Normal <0.01 [facility] Comment on above: Order Comment: Speci men Type: BLOOD SPECIMEN Performed By: #### 5 8410-2 ####[facility]ATORYCLIA [id number] [address] Platelet mean volume (Bld) [Entitic vol] 10.3 fL Normal 9.0-12.7 [facility] Comment on above: Order Comment: Speci men Type: BLOOD SPECIMEN Performed By: #### 5 8410-2 ####[facility]ATORYCLIA [id number] [address] STATES [facility] Platelets (Bld) [#/Vol] 219 10*3/uL Normal 150-400 [facility] Comment on above: Order Comment: Speci men Type: BLOOD SPECIMEN Performed By: #### 5 8410-2 ####[facility]ATORYCLIA [id number] [address] STATES [facility] RBC (Bld) [#/Vol] 3.72 10*6/uL Low 4.20-6.00 [facility] Comment on above: Order Comment: Speci men Type: BLOOD SPECIMEN Performed By: #### 5 8410-2 ####[facility]ATORYCLIA [id number] [address] WBC (Bld) [#/Vol] 13.02 10*3/uL High 3.70-11.00 [facility] Comment on above: Order Comment: Speci men Type: BLOOD SPECIMEN Performed By: #### 5 8410-2 ####[facility]ATORYCLIA [id number] [address] CONSULT PROGon 06-09-2021 CONSULT PROG Normal [facility] CONSULT PROG Normal [facility] CT BRAIN WO IVCONon 06-09-19 CT BRAIN WO IVCON Normal [facility] Magnesium SerPl-mCncon 06-09 Magnesium [Mass/Vol] 2.8 mg/dL High 1.7-2.3 [facility] Comment on above: Order Comment: Speci men Type: BLOOD SPECIMEN Performed By: #### 2 4321-2, 2777-1, 31221-3 ####[facility]ORATORYCLIA [id number] [address] OF [facility] NURSING PROGon 06-09-2021 NURSING PROG Normal [facility] NUTRITIONon 06-09-2021 NUTRITION Normal [facility] PT EDon 06-09-2021 PT ED Normal [facility] Phosphate SerPl-mCncon 06-09 Phosphate [Mass/Vol] 2.2 mg/dL Low 2.7-4.8 [facility] Comment on above: Order Comment: Speci men Type: BLOOD SPECIMEN Performed By: #### 2 4321-2, 2777-1, 54395-7 ####[facility]ATORYCLIA [id number] [address] Vancomycin random [Mass/Vol] on 06-09-2021 Vancomycin [Mass/Vol] 18.9 ug/mL Normal 10.0-20.0 [facility] Comment on above: Order Comment: Speci men Type: BLOOD SPECIMEN Result Comment: Refe rence ranges and high/low indicator flags are provided as general guidelines only. The treating physician must determine appropriate target levels/dosing based on the specific clinical situation. Performed By: #### 4 091-5 ####[facility]ATORYCLIA [id number] [address] XR ABD 2V SUPINE W UPR/DECUB /CTLon 06-09-2021 XR ABD 2V SUPINE W UPR/DECUB/CTL Normal [facility] XR CHEST 1V FRONTALon 2021 XR CHEST 1V FRONTAL Normal [facility] XR NECK SOFT TISSUE 2V AP/LA Ton 06-09-2021 XR NECK SOFT TISSUE 2V AP/LAT Normal [facility] XR SKULL 2V AP/LATon 022 XR SKULL 2V AP/LAT Normal [facility] ALLIED HEALTHon 06-08-2021 ALLIED HEALTH Normal [facility] ANES POSTPROC EVALon 022 ANES POSTPROC EVAL Normal [facility] ANES PRE-OPon 06-08-2021 ANES PRE-OP Normal [facility] BRIEF OP NOTon 06-08-2021 BRIEF OP NOT Normal [facility] Bacteria Spec Anaerobe Culto n 06-08-2021 Bacteria identified Anaer cx Nom (Unsp spec) ORGANISM ID: 1 Rare Staphylococcus saccharolyticus Identification performed by [facility] CC-Main See scanned document for susceptibility report Normal [facility] Comment on above: Performed By: #### 6 462-6, 635-3 ####[facility]ATORYCLIA [id number] [address] [place] Bacteria Wnd Culton 06-08-19 22 Bacteria identified Cx Nom (Wound) CULTURE, INTRAOPERATIVE HARDWARE: No growth 5 days GRAM STAIN: Not performed on specimen type Normal [facility] Comment on above: Performed By: #### 6 462-6, 635-3 ####[facility]ATORYCLIA [id number] [place] [address] [place] Basic metabolic 2000 panelon 06-08-2021 Anion gap [Moles/Vol] 9 mmol/L Normal 9-18 [facility] Comment on above: Order Comment: Speci men Type: BLOOD SPECIMEN Performed By: #### 2 4321-2, 2777-1, ####[facility]ATORYCLIA [id number] [place] [address] [place] Calcium [Mass/Vol] 8.7 mg/dL Normal 8.5-10.2 [facility] Comment on above: Order Comment: Speci men Type: BLOOD SPECIMEN Performed By: #### 2 4321-2, 7-1, ####[facility]ATORYCLIA [id number] [address] [place] Chloride [Moles/Vol] 113 mmol/L High 97-105 [facility] Comment on above: Order Comment: Speci men Type: BLOOD SPECIMEN Performed By: #### 2 4321-2, 2776-05, ####[facility]ATORYCLIA [id number] [place], [place] [address] [place] [address] [place] [facility] CO2 [Moles/Vol] 26 mmol/L Normal 22-30 [facility] Comment on above: Order Comment: Speci men Type: BLOOD SPECIMEN Performed By: #### 2 4321-2, 2776-05, ####[facility]ATORYCLIA [id number] [address] STATES OF [facility] Creatinine [Mass/Vol] 0.68 mg/dL Low 0.73-1.22 [facility] Comment on above: Order Comment: Speci men Type: BLOOD SPECIMEN Performed By: #### 2 4321-2, 2776-05, ####[facility]ATORYCLIA [id number] [address] [place] GFR/1.73 sq M.predicted MDRD (S/P/Bld) [Vol rate/Area] mL/min/{1.73_m2} Normal [facility] Comment on above: Order [...] 2 4321-2, 2776-05, ####[facility]ATORYCLIA [id number] [address] [place] Glucose [Mass/Vol] 146 mg/dL High 74-99 [facility] Comment on above: Order Comment: Speci men Type: BLOOD SPECIMEN Result Comment: The [place] [employer] (ADA) provides guidance for cutoff [...] Standards of Medical Care in Diabetes 2016, [place] [employer]. Diabetes Care. 2016.39(Suppl 1). Performed By: #### 2 4321-2, 2776-05, ####[facility]ATORYCLIA [id number] [address] STATES OF [facility] Potassium [Moles/Vol] 3.6 mmol/L Low 3.7-5.1 [facility] Comment on above: Order Comment: Speci men Type: BLOOD SPECIMEN Performed By: #### 2 4321-2, 2776-05, ####[facility]ATORYCLIA [id number] [address] STATES [facility] Sodium [Moles/Vol] 148 mmol/L High 136-144 [facility] Comment on above: Order Comment: Speci men Type: BLOOD SPECIMEN Performed By: #### 2 4321-2, 2776-05, ####[facility]ATORYCLIA [id number] [address] STATES OF [facility] Urea nitrogen [Mass/Vol] 36 mg/dL High 9-24 [facility] Comment on above: Order Comment: Speci men Type: BLOOD SPECIMEN Performed By: #### 2 4321-2, 2776-05, ####[facility]ATORYCLIA [id number] [address] [place] CASE MANAGEMon 06-08-2021 CASE MANAGEM Normal [facility] CBC panel Auto (Bld)on 06-08 Erythrocyte distribution width (RBC) [Ratio] 16.0 % High 11.5-15.0 [facility] Comment on above: Order Comment: Speci men Type: BLOOD SPECIMEN Performed By: #### 5 8410-2 ####[facility]ATORYCLIA [id number] [address] Hematocrit (Bld) [Volume fraction] 38.4 % Low 39.0-51.0 [facility] Comment on above: Order Comment: Speci men Type: BLOOD SPECIMEN Performed By: #### 5 8410-2 ####[facility]ATORYCLIA [id number] [address] Hemoglobin (Bld) [Mass/Vol] 12.1 g/dL Low 13.0-17.0 [facility] Comment on above: Order Comment: Speci men Type: BLOOD SPECIMEN Performed By: #### 5 8410-2 ####[facility]ATORYCLIA [id number] [address] MCH (RBC) [Entitic mass] 28.3 pg Normal 26.0-34.0 [facility] Comment on above: Order Comment: Speci men Type: BLOOD SPECIMEN Performed By: #### 5 8410-2 ####[facility]ATORYCLIA [id number] [address] MCHC (RBC) [Mass/Vol] 31.5 g/dL Normal 30.5-36.0 [facility] Comment on above: Order Comment: Speci men Type: BLOOD SPECIMEN Performed By: #### 5 8410-2 ####[facility]ATORYCLIA [id number] [address] MCV (RBC) [Entitic vol] 89.9 fL Normal 80.0-100.0 [facility] Comment on above: Order Comment: Speci men Type: BLOOD SPECIMEN Performed By: #### 5 8410-2 ####[facility]ATORYCLIA [id number] [address] Nucleated RBC (Bld) [#/Vol] 10*3/uL Normal <0.01 [facility] Comment on above: Order Comment: Speci men Type: BLOOD SPECIMEN Performed By: #### 5 8410-2 ####[facility]ATORYCLIA [id number] [address] Platelet mean volume (Bld) [Entitic vol] 10.3 fL Normal 9.0-12.7 [facility] Comment on above: Order Comment: Speci men Type: BLOOD SPECIMEN Performed By: #### 5 8410-2 ####[facility]ORATORYCLIA [id number] [address] OF [facility] Platelets (Bld) [#/Vol] 236 10*3/uL Normal 150-400 [facility] Comment on above: Order Comment: Speci men Type: BLOOD SPECIMEN Performed By: #### 5 8410-2 ####[facility]ATORYCLIA [id number] [address] RBC (Bld) [#/Vol] 4.27 10*6/uL Normal 4.20-6.00 [facility] Comment on above: Order Comment: Speci men Type: BLOOD SPECIMEN Performed By: #### 5 8410-2 ####[facility]ORATORYCLIA [id number] [address] WBC (Bld) [#/Vol] 11.06 10*3/uL High 3.70-11.00 [facility] Comment on above: Order Comment: Speci men Type: BLOOD SPECIMEN Performed By: #### 5 8410-2 ####[facility]ATORYCLIA [id number] [address] CONSULT PROGon 06-08-2021 CONSULT PROG Normal [facility] CT BRAIN WO IVCONon 06-08-[address] BRAIN WO IVCON Normal [facility] Magnesium SerPl-mCncon 06-08 Magnesium [Mass/Vol] 2.8 mg/dL High 1.7-2.3 [facility] Comment on above: Order Comment: Speci men Type: BLOOD SPECIMEN Performed By: #### 2 4321-2, 2777-1, 92178-0 ####[facility]ATORYCLIA [id number] [place] [id number] [facility] Microorganism Spec Culton Microorganism identified Cx Nom (Unsp spec) CULTURE, FUNGAL: No Fungus isolated after 28 days FUNGAL SMEAR: No fungus seen Normal [facility] Comment on above: Performed By: #### 1 1475-1 ####[facility]ATORYCLIA [id number] [address] NURSING PROGon 06-08-2021 NURSING PROG Normal [facility] OPERATIVE NOon 06-08-2021 OPERATIVE NO Normal [facility] OPERATIVE NO Normal [facility] PT panel Coag (PPP)on 2021 INR Coag (PPP) [Relative time] 1.1 {INR} Normal 0.9-1.3 [facility] Comment on above: Order Comment: Speci men Type: BLOOD SPECIMEN Result Comment: Yris min K Antagonist (VKA) Therapeutic Range: INR 2 to 3 (Target INR of 2.5)Note: For patients treated with VKA drugs, such as warfarin, the [place] [employer] 2012 Guideline recommends [...] al. Chest 2012, 141:7S-47SNishmariangel RA, et al. [facility] 2017, 70: 252-289 Performed By: #### 3 4528-0, 70566-4 ####[facility]ATORYCLIA [id number] [place] [id number] [place] PT Coag (PPP) [Time] 11.9 s Normal 9.7-13.0 [facility] Comment on above: Order Comment: Speci men Type: BLOOD SPECIMEN Performed By: #### 3 4528-0, 14667-9 ####[facility]ATORYCLIA [id number] [address] OF [facility] Phosphate SerPl-mCncon 06-08 Phosphate [Mass/Vol] 2.3 mg/dL Low 2.7-4.8 [facility] Comment on above: Order Comment: Speci men Type: BLOOD SPECIMEN Performed By: #### 2 4321-2, 2777-1, 68383-5 ####[facility]ATORYCLIA [id number] [address] aPTT PPPon 06-08-2021 aPTT Coag (PPP) [Time] 24.2 s Normal 23.0-32.4 [facility] Comment on above: Order Comment: Speci men Type: BLOOD SPECIMEN Performed By: #### 3 4528-0, 06791-6 ####[facility]ATORYCLIA [id number] [address] OF [facility] ALLIED HEALTHon 06-07-2021 ALLIED HEALTH Normal [facility] ALLIED HEALTH Normal [facility] ALLIED HEALTH Normal [facility] Bacteria CSF Culton 06-07-19 22 Bacteria identified Cx Nom (CSF) CULTURE, CSF: No growth 14 days GRAM STAIN: No organisms seen Rare Mononuclear cells Rare Polymorphonuclear leukocytes Gram stain performed on cytospun specimen. Normal [facility] Comment on above: Performed By: #### 6 06-4 ####[facility]ATORYCLIA [id number] [address] STATES OF [facility] Basic metabolic 2000 panelon 06-07-2021 Anion gap [Moles/Vol] 9 mmol/L Normal 9-18 [facility] Comment on above: Order Comment: Speci men Type: BLOOD SPECIMEN Performed By: #### 1 9123-9, 2777-1, 04491-4 ####[facility]ATORYCLIA [id number] [address] STATES OF [facility] Calcium [Mass/Vol] 8.8 mg/dL Normal 8.5-10.2 [facility] Comment on above: Order Comment: Speci men Type: BLOOD SPECIMEN Performed By: #### 1 9123-9, 2777-1, 61369-3 ####[facility]ATORYCLIA [id number] [address] [place] Chloride [Moles/Vol] 111 mmol/L High 97-105 [facility] Comment on above: Order Comment: Speci men Type: BLOOD SPECIMEN Performed By: #### 1 9123-9, 277-, 06048-2 ####[facility]ATORYCLIA [id number] [address] CO2 [Moles/Vol] 27 mmol/L Normal 22-30 [facility] Comment on above: Order Comment: Speci men Type: BLOOD SPECIMEN Performed By: #### 1 9123-9, 2777-1, 51002-3 ####[facility]ATORYCLIA [id number] [address] [place] Creatinine [Mass/Vol] 0.66 mg/dL Low 0.73-1.22 [facility] Comment on above: Order Comment: Speci men Type: BLOOD SPECIMEN Performed By: #### 1 9123-9, 2777-1, 58041-9 ####[facility]ATORYCLIA [id number] [address] [place] GFR/1.73 sq M.predicted MDRD (S/P/Bld) [Vol rate/Area] mL/min/{1.73_m2} Normal [facility] Comment on above: Order [...] GFR. Performed By: #### 1 9123-9, 2777-, 60452-1 ####[facility]ATORYCLIA [id number] [place] [address] [place] Glucose [Mass/Vol] 123 mg/dL High 74-99 [facility] Comment on above: Order Comment: Speci men Type: BLOOD SPECIMEN Result Comment: The [place] [employer] (ADA) provides guidance for cutoff [...] Standards of Medical Care in Diabetes 2016, [place] [employer]. Diabetes Care. 2016.39(Suppl 1). Performed By: #### 1 9123-9, 2776-05, 15011-2 ####[facility]ATORYCLIA [id number] [place] [address] [place] Potassium [Moles/Vol] 3.6 mmol/L Low 3.7-5.1 [facility] Comment on above: Order Comment: Speci men Type: BLOOD SPECIMEN Performed By: #### 1 9123-9, 27711-04, 99968-7 ####[facility]ATORYCLIA [id number] [address] [place] Sodium [Moles/Vol] 147 mmol/L High 136-144 [facility] Comment on above: Order Comment: Speci men Type: BLOOD SPECIMEN Performed By: #### 1 9123-9, 27711-04, 18355-7 ####[facility]ATORYCLIA [id number] [address] STATES [facility] Urea nitrogen [Mass/Vol] 30 mg/dL High 9-24 [facility] Comment on above: Order Comment: Speci men Type: BLOOD SPECIMEN Performed By: #### 1 9123-9, 2777-1, 26460-5 ####[facility]ATORYCLIA [id number] [address] [place] CBC W Auto Differential pane l (Bld)on 06-07-2021 Basophils (Bld) [#/Vol] 10*3/uL Normal <0.11 [facility] Comment on above: Order Comment: Speci men Type: BLOOD SPECIMEN Performed By: #### 5 7021-8 ####[facility]ORYCLIA [id number] [address] Basophils/100 WBC (Bld) 0.2 % Normal [facility] Comment on above: Order Comment: Speci men Type: BLOOD SPECIMEN Performed By: #### 5 7021-8 ####[facility]ORYCLIA [id number] [address] Differential cell count method Nom (Bld) Auto Normal [facility] Comment on above: Order Comment: Speci men Type: BLOOD SPECIMEN Performed By: #### 5 7021-8 ####[facility]ORYCLIA [id number] [address] [place] Eosinophils (Bld) [#/Vol] 0.06 10*3/uL Normal <0.46 [facility] Comment on above: Order Comment: Speci men Type: BLOOD SPECIMEN Performed By: #### 5 7021-8 ####[facility]ORYCLIA [id number] [address] [place] Eosinophils/100 WBC (Bld) 0.6 % Normal [facility] Comment on above: Order Comment: Speci men Type: BLOOD SPECIMEN Performed By: #### 5 7021-8 ####[facility]ORYCLIA [id number] [address] Erythrocyte distribution width (RBC) [Ratio] 15.8 % High 11.5-15.0 [facility] Comment on above: Order Comment: Speci men Type: BLOOD SPECIMEN Performed By: #### 5 7021-8 ####[facility]ORYCLIA [id number] [address] Hematocrit (Bld) [Volume fraction] 40.4 % Normal 39.0-51.0 [facility] Comment on above: Order Comment: Speci men Type: BLOOD SPECIMEN Performed By: #### 5 7021-8 ####[facility]ORYCLIA [id number] [address] Hemoglobin (Bld) [Mass/Vol] 12.4 g/dL Low 13.0-17.0 [facility] Comment on above: Order Comment: Speci men Type: BLOOD SPECIMEN Performed By: #### 5 7021-8 ####[facility]ORYCLIA [id number] [address] IMMATURE GRAN % 0.7 % Normal [facility] Comment on above: Order Comment: Speci men Type: BLOOD SPECIMEN Performed By: #### 5 7021-8 ####[facility] LABORATORYCLIA [id number] [address] IMMATURE GRAN ABS 0.07 k/uL Normal <0.10 [facility] Comment on above: Order Comment: Speci men Type: BLOOD SPECIMEN Performed By: #### 5 7021-8 ####[facility] LABORATORYCLIA [id number] [address] Lymphocytes (Bld) [#/Vol] 1.43 10*3/uL Normal 1.00-4.00 [facility] Comment on above: Order Comment: Speci men Type: BLOOD SPECIMEN Performed By: #### 5 7021-8 ####[facility] LABORATORYCLIA [id number] [address] Lymphocytes/100 WBC (Bld) 14.1 % Normal [facility] Comment on above: Order Comment: Speci men Type: BLOOD SPECIMEN Performed By: #### 5 7021-8 ####[facility] LABORATORYCLIA [id number] [address] MCH (RBC) [Entitic mass] 27.6 pg Normal 26.0-34.0 [facility] Comment on above: Order Comment: Speci men Type: BLOOD SPECIMEN Performed By: #### 5 7021-8 ####[facility] LABORATORYCLIA [id number] [address] MCHC (RBC) [Mass/Vol] 30.7 g/dL Normal 30.5-36.0 [facility] Comment on above: Order Comment: Speci men Type: BLOOD SPECIMEN Performed By: #### 5 7021-8 ####[facility] LABORATORYCLIA [id number] [address] MCV (RBC) [Entitic vol] 89.8 fL Normal 80.0-100.0 [facility] Comment on above: Order Comment: Speci men Type: BLOOD SPECIMEN Performed By: #### 5 7021-8 ####[facility] LABORATORYCLIA [id number] [address] Monocytes (Bld) [#/Vol] 0.82 10*3/uL Normal <0.87 [facility] Comment on above: Order Comment: Speci men Type: BLOOD SPECIMEN Performed By: #### 5 7021-8 ####[facility] LABORATORYCLIA [id number] [address] Monocytes/100 WBC (Bld) 8.1 % Normal [facility] Comment on above: Order Comment: Speci men Type: BLOOD SPECIMEN Performed By: #### 5 7021-8 ####[facility] LABORATORYCLIA [id number] [address] Neutrophils (Bld) [#/Vol] 7.74 10*3/uL High 1.45-7.50 [facility] Comment on above: Order Comment: Speci men Type: BLOOD SPECIMEN Performed By: #### 5 7021-8 ####[facility] LABORATORYCLIA [id number] [address] Neutrophils/100 WBC (Bld) 76.3 % Normal [facility] Comment on above: Order Comment: Speci men Type: BLOOD SPECIMEN Performed By: #### 5 7021-8 ####[facility] LABORATORYCLIA [id number] [address] Nucleated RBC (Bld) [#/Vol] 10*3/uL Normal <0.01 [facility] Comment on above: Order Comment: Speci men Type: BLOOD SPECIMEN Performed By: #### 5 7021-8 ####[facility] LABORATORYCLIA [id number] [address] Nucleated RBC/100 WBC (Bld) [Ratio] 0.0 /100 WBC Normal 0.0 [facility] Comment on above: Order Comment: Speci men Type: BLOOD SPECIMEN Performed By: #### 5 7021-8 ####[facility] LABORATORYCLIA [id number] [address] Platelet mean volume (Bld) [Entitic vol] 10.4 fL Normal 9.0-12.7 [facility] Comment on above: Order Comment: Speci men Type: BLOOD SPECIMEN Performed By: #### 5 7021-8 ####[facility] LABORATORYCLIA [id number] [address] Platelets (Bld) [#/Vol] 236 10*3/uL Normal 150-400 [facility] Comment on above: Order Comment: Speci men Type: BLOOD SPECIMEN Performed By: #### 5 7021-8 ####[facility]ORATORYCLIA [id number] [address] [place] RBC (Bld) [#/Vol] 4.50 10*6/uL Normal 4.20-6.00 [facility] Comment on above: Order Comment: Speci men Type: BLOOD SPECIMEN Performed By: #### 5 7021-8 ####[facility] LABORATORYCLIA [id number] [address] WBC (Bld) [#/Vol] 10.14 10*3/uL Normal 3.70-11.00 [facility] Comment on above: Order Comment: Speci men Type: BLOOD SPECIMEN Performed By: #### 5 7021-8 ####[facility] LABORATORYCLIA [id number] [address] CBC panel Auto (Bld)on 06-07 Erythrocyte distribution width (RBC) [Ratio] 15.8 % High 11.5-15.0 [facility] Comment on above: Order Comment: Speci men Type: BLOOD SPECIMEN Performed By: #### 5 8410-2 ####[facility] LABORATORYCLIA [id number] [address] Hematocrit (Bld) [Volume fraction] 40.0 % Normal 39.0-51.0 [facility] Comment on above: Order Comment: Speci men Type: BLOOD SPECIMEN Performed By: #### 5 8410-2 ####[facility] LABORATORYCLIA [id number] [address] Hemoglobin (Bld) [Mass/Vol] 12.3 g/dL Low 13.0-17.0 [facility] Comment on above: Order Comment: Speci men Type: BLOOD SPECIMEN Performed By: #### 5 8410-2 ####[facility] LABORATORYCLIA [id number] [address] MCH (RBC) [Entitic mass] 27.3 pg Normal 26.0-34.0 [facility] Comment on above: Order Comment: Speci men Type: BLOOD SPECIMEN Performed By: #### 5 8410-2 ####[facility] LABORATORYCLIA [id number] [address] MCHC (RBC) [Mass/Vol] 30.8 g/dL Normal 30.5-36.0 [facility] Comment on above: Order Comment: Speci men Type: BLOOD SPECIMEN Performed By: #### 5 8410-2 ####[facility] LABORATORYCLIA [id number] [address] MCV (RBC) [Entitic vol] 88.7 fL Normal 80.0-100.0 [facility] Comment on above: Order Comment: Speci men Type: BLOOD SPECIMEN Performed By: #### 5 8410-2 ####[facility] LABORATORYCLIA [id number] [address] Nucleated RBC (Bld) [#/Vol] 10*3/uL Normal <0.01 [facility] Comment on above: Order Comment: Speci men Type: BLOOD SPECIMEN Performed By: #### 5 8410-2 ####[facility] LABORATORYCLIA [id number] [address] Platelet mean volume (Bld) [Entitic vol] 10.0 fL Normal 9.0-12.7 [facility] Comment on above: Order Comment: Speci men Type: BLOOD SPECIMEN Performed By: #### 5 8410-2 ####[facility] LABORATORYCLIA [id number] [address] Platelets (Bld) [#/Vol] 234 10*3/uL Normal 150-400 [facility] Comment on above: Order Comment: Speci men Type: BLOOD SPECIMEN Performed By: #### 5 8410-2 ####[facility] LABORATORYCLIA [id number] [address] RBC (Bld) [#/Vol] 4.51 10*6/uL Normal 4.20-6.00 [facility] Comment on above: Order Comment: Speci men Type: BLOOD SPECIMEN Performed By: #### 5 8410-2 ####[facility] LABORATORYCLIA [id number] [address] WBC (Bld) [#/Vol] 11.47 10*3/uL High 3.70-11.00 [facility] Comment on above: Order Comment: Speci men Type: BLOOD SPECIMEN Performed By: #### 5 8410-2 ####[facility] LABORATORYCLIA [id number] [address] [facility] CONSULT PROGon 06-07-2021 CONSULT PROG Normal [facility] CONSULT PROG Normal [facility] CSF MANUAL DIFFon 06-07-2021 DIF TTL, CSF 92 cells counted Normal [facility] Comment on above: Order Comment: Speci men Type: CEREBROSPINAL FLUID Performed By: #### 3 4563-7, [id number], [id number] ####[facility] LABORATORYCLIA [id number] [address] [place] EOSIN%, CSF 1 % Normal [facility] Comment on above: Order Comment: Speci men Type: CEREBROSPINAL FLUID Performed By: #### 3 4563-7, [id number], [id number] ####[facility] LABORATORYCLIA [id number] [address] [place] LYMPH%, CSF 21 % Low 50-90 [facility] Comment on above: Order Comment: Speci men Type: CEREBROSPINAL FLUID Performed By: #### 3 4563-7, [id number], [id number] ####[facility] LABORATORYCLIA [id number] [address] [place] MACRO%, CSF 27 % High <1 [facility] Comment on above: Order Comment: Speci men Type: CEREBROSPINAL FLUID Result Comment: Tati ected result: Previously reported as 22 % on 06/07/2021 at 1:49 PM EST. Performed By: #### 3 4563-7, [id number], [id number] ####[facility]ORATORYCLIA [id number] [address] [place] MONO%, CSF 36 % Normal 10-50 [facility] Comment on above: Order Comment: Speci men Type: CEREBROSPINAL FLUID Performed By: #### 3 4563-7, [id number], [id number] ####[facility] LABORATORYCLIA [id number] [place], [place] [address] [place] [address] [place] NEUT%, CSF 11 % High 0-3 [facility] Comment on above: Order Comment: Speci men Type: CEREBROSPINAL FLUID Performed By: #### 3 4563-7, [id number], [id number] ####[facility] LABORATORYCLIA [id number] [address] [place] OTHER CL%, CSF 4 % Normal [facility] Comment on above: Order Comment: Speci men Type: CEREBROSPINAL FLUID Result Comment: Path review to follow.Corrected result: Previously reported as 10 % on 06/07/2021 at 1:49 PM EST. Performed By: #### 3 4563-7, [id number], [id number] ####[facility] LABORATORYCLIA [id number] [address] [place] CSF PATHOLOGIST INTERP (LAB REFLEX ORDER-NO BILL)on 06-07-2021 CSF STAFF REVIEW Negative for maligna nt cells. Rare immature myeloid or ventricular lining cells. Normal [facility] Comment on above: Order Comment: Speci men Type: CEREBROSPINAL FLUID Performed By: #### 3 4563-7, [id number], [id number] ####[facility] LABORATORYCLIA [id number] [address] Pathologist name Reviewed by Eloise rebolledo MD Normal [facility] Comment on above: Order Comment: Speci men Type: CEREBROSPINAL FLUID Performed By: #### 3 4563-7, [id number], [id number] ####[facility] LABORATORYCLIA [id number] [address] [place] CT BRAIN WO IVCONon 06-07-19 CT BRAIN WO IVCON Normal [facility] CT BRAIN WO IVCON Normal [facility] Cell count panel (CSF)on Clarity (CSF) Clear Normal Clear [facility] Comment on above: Order Comment: Speci men Type: CEREBROSPINAL FLUID Performed By: #### 3 4563-7, [id number], UEF1321 ####[facility] LABORATORYCLIA [id number] [address] Clarity (Unsp spec) Not Indicated Normal Clear [facility] Comment on above: Order Comment: Speci men Type: CEREBROSPINAL FLUID Performed By: #### 3 4563-7, [id number], [id number] ####[facility] LABORATORYCLIA [id number] [address] Color (CSF) Colorless Normal Colorless [facility] Comment on above: Order Comment: Speci men Type: CEREBROSPINAL FLUID Performed By: #### 3 4563-7, [id number], [id number] ####[facility] LABORATORYCLIA [id number] [address] Color (Spun CSF) Not Indicated Normal Colorless [facility] Comment on above: Order Comment: Speci men Type: CEREBROSPINAL FLUID Performed By: #### 3 4563-7, [id number], [id number] ####[facility] LABORATORYCLIA [id number] [address] CSF TUBE [employer]BER [employer] Normal [facility] Comment on above: Order Comment: Speci men Type: CEREBROSPINAL FLUID Performed By: #### 3 4563-7, [id number], [id number] ####[facility] LABORATORYCLIA [id number] [address] [facility] RBC Manual cnt (CSF) [#/Vol] 42 cells/uL High 0-5 [facility] Comment on above: Order Comment: Speci men Type: CEREBROSPINAL FLUID Performed By: #### 3 4563-7, [id number], [id number] ####[facility] LABORATORYCLIA [id number] [address] WBC Manual cnt (CSF) [#/Vol] 1 cells/uL Normal 0-[address] [place] [address] Comment on above: Order Comment: Speci men Type: CEREBROSPINAL FLUID Performed By: #### 3 4563-7, [id number], [id number] ####[facility] LABORATORYCLIA [id number] [place] [address] [place] Glucose CSF-mCncon 2 Glucose (CSF) [Mass/Vol] 92 mg/dL High 40-70 [facility] Comment on above: Order Comment: Speci men Type: CEREBROSPINAL FLUID Result Comment: Lumb ar CSF glucose values of healthy patients are approximately 60% of the plasma values and must always be compared with a concurrently measured plasma value for adequate clinical interpretation.References: 1. Glucose HK (GLUC3) [package insert V 12.0 [place]]. [employer], [place], [place]. September 2015. 2. Michelle Moore, Loki HGarfield (2015). Chapter 7: Glucose and Lactate. F. Irina rose al.(eds.), Cerebrospinal Fluid in Clinical Neurology. [place]: Fly Fishing [employer]. Performed By: #### 2 880-3, 2342-4 ####[facility] LABORATORYCLIA [id number] [address] [place] Lactate (Bld) [Moles/Vol]on 06-07-2021 Lactate [Moles/Vol] 0.9 mmol/L Normal 0.5-2.2 [facility] Comment on above: Order Comment: Speci men Type: BLOOD SPECIMEN Performed By: #### 3 2693-4 ####[facility] LABORATORYCLIA [id number] [place] [address] [place] Lipase SerPl-cCncon 06-07-19 22 Lipase [Catalytic activity/Vol] 35 U/L Normal 16-61 [facility] Comment on above: Order Comment: Speci men Type: BLOOD SPECIMEN Performed By: #### 3 040-3, PROCAL ####[facility] LABORATORYCLIA [id number] [place] [address] [place] Magnesium SerPl-ncon 06-07 Magnesium [Mass/Vol] 2.7 mg/dL High 1.7-2.3 [facility] Comment on above: Order Comment: Speci men Type: BLOOD SPECIMEN Performed By: #### 1 9123-9, 2777-1, 74367-3 ####[facility] LABORATORYCLIA [id number] [address] PROCALCITONIN (LAB)on 2021 Procalcitonin [Mass/Vol] 0.13 ng/mL High <0.09 [facility] Comment on above: Order Comment: Speci men Type: BLOOD SPECIMEN Result Comment: For a guided interpretation of test results, please visit the Change in Procalcitonin Calculator, [email or web address]. Performed By: #### 3 040-3, PROCAL ####[facility] LABORATORYCLIA [id number] [address] OF [facility] Phosphate SerPl-ncon 06-07 Phosphate [Mass/Vol] 1.9 mg/dL Low 2.7-4.8 [facility] Comment on above: Order Comment: Speci men Type: BLOOD SPECIMEN Performed By: #### 1 9123-9, 2777-1, 45605-1 ####[facility] LABORATORYCLIA [id number] [address] Prot CSF-ncon 06-07-2021 Protein (CSF) [Mass/Vol] 33 mg/dL Normal 15-45 [facility] Comment on above: Order Comment: Speci men Type: CEREBROSPINAL FLUID Performed By: #### 2 880-3, 2342-4 ####[facility] LABORATORYCLIA [id number] [address] [place] SARS-CoV-2 RNA Resp Ql MEGAN+p robeon 06-07-2021 SARS-CoV-2 (COVID-19) RNA MEGAN+probe Ql (Resp) COVID 19 RESULT: SARS-CoV-2 (Agent of COVID-19) Not Detected by PCR. This test has been authorized by FDA under an Emergency Use Authorization (EUA). [facility] Comment on above: Performed By: #### 9 4500-6 ####[facility] LABORATORYCLIA [id number] [address] OF [facility] TYPE AND SCREENon 06-07-2021 ABO O Normal [facility] Comment on above: Order Comment: Speci men Type: BLOOD SPECIMEN Performed By: #### T SCR ####[facility] BLOOD BANKCLIA [id number] [address] HISTORICAL AB SCR STATUS Negative Normal [facility] Comment on above: Order Comment: Speci men Type: BLOOD SPECIMEN Performed By: #### T SCR ####[facility] BLOOD BANKCLIA [id number] [address] Rh Nom (Bld) Positive Normal [facility] Comment on above: Order Comment: Speci men Type: BLOOD SPECIMEN Performed By: #### T SCR ####[facility] BLOOD BANKCLIA [id number] [address] TYPE AND SCREEN EXPIRATION 06/10/2021 23:59 Normal [facility] Comment on above: Order Comment: Speci men Type: BLOOD SPECIMEN Performed By: #### T SCR ####[facility] BLOOD BANKCLIA [id number] [address] Vancomycin random [Mass/Vol] on 06-07-2021 Vancomycin [Mass/Vol] 16.5 ug/mL Normal 10.0-20.0 [facility] Comment on above: Order Comment: Speci men Type: BLOOD SPECIMEN Result Comment: Refe rence ranges and high/low indicator flags are provided as general guidelines only. The treating physician must determine appropriate target levels/dosing based on the specific clinical situation. Performed By: #### 4 091-5 ####[facility] LABORATORYCLIA [id number] [address] XR CHEST 1V FRONTAL PORTon 0 06-07-2021 XR CHEST 1V FRONTAL PORT Normal [facility] Basic metabolic 2000 panelon 06-06-2021 Anion gap [Moles/Vol] 11 mmol/L Normal 9-18 [facility] Comment on above: Order Comment: Speci men Type: BLOOD SPECIMEN Performed By: #### 2 4321-2, 41237-9, 2777-1 ####[facility] LABORATORYCLIA [id number] [place], [place] [address] [place] [address] [place] Calcium [Mass/Vol] 8.6 mg/dL Normal 8.5-10.2 [facility] Comment on above: Order Comment: Speci men Type: BLOOD SPECIMEN Performed By: #### 2 4321-2, , 2776-05 ####[facility] LABORATORYCLIA [id number] [address] [place] Chloride [Moles/Vol] 108 mmol/L High 97-105 [facility] Comment on above: Order Comment: Speci men Type: BLOOD SPECIMEN Performed By: #### 2 1-2, , 2776-05 ####[facility] LABORATORYCLIA [id number] [address] CO2 [Moles/Vol] 25 mmol/L Normal 22-30 [facility] Comment on above: Order Comment: Speci men Type: BLOOD SPECIMEN Performed By: #### 2 4321-2, , 2776-05 ####[facility] LABORATORYCLIA [id number] [address] Creatinine [Mass/Vol] 0.76 mg/dL Normal 0.73-1.22 [facility] Comment on above: Order Comment: Speci men Type: BLOOD SPECIMEN Performed By: #### 2 4321-2, , 2776-05 ####[facility] LABORATORYCLIA [id number] [address] [place] GFR/1.73 sq M.predicted MDRD (S/P/Bld) [Vol rate/Area] mL/min/{1.73_m2} Normal [facility] Comment on above: Order [...] 1-2, , 2776-05 ####[facility] LABORATORYCLIA [id number] [place] [address] [place] Glucose [Mass/Vol] 116 mg/dL High 74-99 [facility] Comment on above: Order Comment: Speci men Type: BLOOD SPECIMEN Result Comment: The [place] Diabetes Association (ADA) provides guidance for cutoff [...] Standards of Medical Care in Diabetes 2016, [place] [employer] Association. Diabetes Care. 2016.39(Suppl 1). Performed By: #### 2 4320-2, , 2776-05 ####[facility] LABORATORYCLIA [id number] [address] [place] Potassium [Moles/Vol] 3.5 mmol/L Low 3.7-5.1 [facility] Comment on above: Order Comment: Speci men Type: BLOOD SPECIMEN Performed By: #### 2 1-2, , 2776-05 ####[facility] LABORATORYCLIA [id number] [address] [place] Sodium [Moles/Vol] 144 mmol/L Normal 136-144 [facility] Comment on above: Order Comment: Speci men Type: BLOOD SPECIMEN Performed By: #### 2 1-2, , 2776-05 ####[facility] LABORATORYCLIA [id number] [address] STATES [facility] Urea nitrogen [Mass/Vol] 31 mg/dL High 9-24 [facility] Comment on above: Order Comment: Speci men Type: BLOOD SPECIMEN Performed By: #### 2 4321-2, 09544-8, 277-1 ####[facility] LABORATORYCLIA [id number] [address] CASE MANAGEMon 06-06-2021 CASE MANAGEM Normal [facility] CBC panel Auto (Bld)on 06-06 Erythrocyte distribution width (RBC) [Ratio] 15.8 % High 11.5-15.0 [facility] Comment on above: Order Comment: Speci men Type: BLOOD SPECIMEN Performed By: #### 5 8410-2 ####[facility] LABORATORYCLIA [id number] [address] Hematocrit (Bld) [Volume fraction] 39.5 % Normal 39.0-51.0 [facility] Comment on above: Order Comment: Speci men Type: BLOOD SPECIMEN Performed By: #### 5 8410-2 ####[facility] LABORATORYCLIA [id number] [address] Hemoglobin (Bld) [Mass/Vol] 12.2 g/dL Low 13.0-17.0 [facility] Comment on above: Order Comment: Speci men Type: BLOOD SPECIMEN Performed By: #### 5 8410-2 ####[facility] LABORATORYCLIA [id number] [address] MCH (RBC) [Entitic mass] 27.8 pg Normal 26.0-34.0 [facility] Comment on above: Order Comment: Speci men Type: BLOOD SPECIMEN Performed By: #### 5 8410-2 ####[facility] LABORATORYCLIA [id number] [address] MCHC (RBC) [Mass/Vol] 30.9 g/dL Normal 30.5-36.0 [facility] Comment on above: Order Comment: Speci men Type: BLOOD SPECIMEN Performed By: #### 5 8410-2 ####[facility] LABORATORYCLIA [id number] [address] MCV (RBC) [Entitic vol] 90.0 fL Normal 80.0-100.0 [facility] Comment on above: Order Comment: Speci men Type: BLOOD SPECIMEN Performed By: #### 5 8410-2 ####[facility] LABORATORYCLIA [id number] [address] Nucleated RBC (Bld) [#/Vol] 10*3/uL Normal <0.01 [facility] Comment on above: Order Comment: Speci men Type: BLOOD SPECIMEN Performed By: #### 5 8410-2 ####[facility] LABORATORYCLIA [id number] [address] Platelet mean volume (Bld) [Entitic vol] 10.4 fL Normal 9.0-12.7 [facility] Comment on above: Order Comment: Speci men Type: BLOOD SPECIMEN Performed By: #### 5 8410-2 ####[facility] LABORATORYCLIA [id number] [address] Platelets (Bld) [#/Vol] 236 10*3/uL Normal 150-400 [facility] Comment on above: Order Comment: Speci men Type: BLOOD SPECIMEN Performed By: #### 5 8410-2 ####[facility] LABORATORYCLIA [id number] [address] RBC (Bld) [#/Vol] 4.39 10*6/uL Normal 4.20-6.00 [facility] Comment on above: Order Comment: Speci men Type: BLOOD SPECIMEN Performed By: #### 5 8410-2 ####[facility] LABORATORYCLIA [id number] [address] WBC (Bld) [#/Vol] 9.74 10*3/uL Normal 3.70-11.00 [facility] Comment on above: Order Comment: Speci men Type: BLOOD SPECIMEN Performed By: #### 5 8410-2 ####[facility] LABORATORYCLIA [id number] [address] CONSULT PROGon 06-06-2021 CONSULT PROG Normal [facility] CONSULT PROG Normal [facility] Magnesium SerPl-mCncon 06-06 Magnesium [Mass/Vol] 2.5 mg/dL High 1.7-2.3 [facility] Comment on above: Order Comment: Speci men Type: BLOOD SPECIMEN Performed By: #### 2 4321-2, 86369-5, 2777-1 ####[facility] LABORATORYCLIA [id number] [address] PT panel Coag (PPP)on 2021 INR Coag (PPP) [Relative time] 1.0 {INR} Normal 0.9-1.3 [facility] Comment on above: Order Comment: Speci men Type: BLOOD SPECIMEN Result Comment: Yris min K Antagonist (VKA) Therapeutic Range: INR 2 to 3 (Target INR of 2.5)Note: For patients treated with VKA drugs, such as warfarin, the [place] [employer] 2012 Guideline recommends [...] al. Chest 2012, 141:7S-47SAlba MURRY et al. [facility] 2017, 70: 252-289 Performed By: #### 3 4528-0, 82594-2 ####[facility]ORYCLIA [id number] PT Coag (PPP) [Time] 11.4 s Normal 9.7-13.0 [facility] Comment on above: Order Comment: Speci men Type: BLOOD SPECIMEN Performed By: #### 3 4528-0, 71216-2 ####[facility]ORATORYCLIA [id number] Phosphate SerPl-mCncon 06-06 Phosphate [Mass/Vol] 2.3 mg/dL Low 2.7-4.8 [facility] [facility] Comment on above: Order Comment: Speci men Type: BLOOD SPECIMEN Performed By: #### 2 4321-2, 53602-8, 2777-1 ####[facility]ORATORYCLIA [id number] [address] THROMBOGRAPH HEPARINASE PANE [place] 06-06-2021 Clot angle after addition of heparinase TEG (Bld) [Angle] 70.2 degrees Normal 47.0-74.0 [facility] Comment on above: Order Comment: Speci men Type: BLOOD SPECIMEN Performed By: #### T EGHPP ####[facility] LABORATORYCLIA [id number] [address] Clot Lysis 30 Min post maximum clot amplitude TEG (Bld) [Length fraction] 0.0 % Normal 0.0-8.0 [facility] Comment on above: Order Comment: Speci men Type: BLOOD SPECIMEN Performed By: #### T EGHPP ####[facility] LABORATORYCLIA [id number] [address] Clotting time after addition of heparinase TEG (Bld) 5.7 minutes Normal 4.0-10.0 [facility] Comment on above: Order Comment: Speci men Type: BLOOD SPECIMEN Performed By: #### T EGHPP ####[facility]ORATORYCLIA [id number] [address] Coagulation index TEG Qn (Bld) 1.2 Normal -4.6-3.2 [facility] Comment on above: Order Comment: Speci men Type: BLOOD SPECIMEN Result Comment: The Coagulation Index, a secondary parameter, is labeled by the footwear stitcher as for research use only and is used per the footwear stitcher's instructions. Its performance characteristics were determined by [facility]'s Isrrael Chris [facility] [place] in a manner consistent with CLIA requirements. This test has not been cleared by the U.S. Food and Drug Administration. Performed By: #### T EGHPP ####[facility]ORATORYCLIA [id number] [address] Maximum clot firmness after addition of heparinase TEG (Bld) [Length] 64.0 mm Normal 51.0-75.0 [facility] Comment on above: Order Comment: Speci men Type: BLOOD SPECIMEN Performed By: #### T EGHPP ####[facility] LABORATORYCLIA [id number] [address] Vancomycin random [Mass/Vol] on 06-06-2021 Vancomycin [Mass/Vol] 17.4 ug/mL Normal 10.0-20.0 [facility] Comment on above: Order Comment: Speci men Type: BLOOD SPECIMEN Result Comment: Refe rence ranges and high/low indicator flags are provided as general guidelines only. The treating physician must determine appropriate target levels/dosing based on the specific clinical situation. Performed By: #### 4 091-5 ####[facility]ORATORYCLIA [id number] [address] STATES OF [facility] Vancomycin [Mass/Vol] 13.5 ug/mL Normal 10.0-20.0 [facility] Comment on above: Order Comment: Speci men Type: BLOOD SPECIMEN Result Comment: Refe rence ranges and high/low indicator flags are provided as general guidelines only. The treating physician must determine appropriate target levels/dosing based on the specific clinical situation. Performed By: #### 4 091-5 ####[facility]ATORYCLIA [id number] [address] [place] aPTT PPPon 01-31-2022 aPTT Coag (PPP) [Time] 27.8 s Normal 23.0-32.4 [facility] Comment on above: Order Comment: Speci men Type: BLOOD SPECIMEN Performed By: #### 3 4528-0, 81678-1 ####[facility]ORYCLIA [id number] [address] STATES OF [facility] Basic metabolic 2000 panelon 06-05-2021 Anion gap [Moles/Vol] 11 mmol/L Normal 9-18 [facility] Comment on above: Order Comment: Speci men Type: BLOOD SPECIMEN Performed By: #### 1 9123-9, 38634-0, 7- ####[facility]ORYCLIA [id number] [address] [place] Calcium [Mass/Vol] 8.6 mg/dL Normal 8.5-10.2 [facility] Comment on above: Order Comment: Speci men Type: BLOOD SPECIMEN Performed By: #### 1 9123-9, 33113-8, 2776- ####[facility]ORYCLIA [id number] [address] [place] Chloride [Moles/Vol] 108 mmol/L High 97-105 [facility] Comment on above: Order Comment: Speci men Type: BLOOD SPECIMEN Performed By: #### 1 9123-9, 97193-7, 7- ####[facility]ORYCLIA [id number] [address] [place] CO2 [Moles/Vol] 25 mmol/L Normal 22-30 [facility] Comment on above: Order Comment: Speci men Type: BLOOD SPECIMEN Performed By: #### 1 9123-9, 76880-9, 2777-1 ####[facility]ORYCLIA [id number] [address] [place] Creatinine [Mass/Vol] 0.77 mg/dL Normal 0.73-1.22 [facility] Comment on above: Order Comment: Speci men Type: BLOOD SPECIMEN Performed By: #### 1 9123-9, 99803-6, 2777- ####[facility]ITALIA [id number] [place] [address] [place] GFR/1.73 sq M.predicted MDRD (S/P/Bld) [Vol rate/Area] mL/min/{1.73_m2} Normal [facility] Comment on above: Order [...] actual GFR. Performed By: #### 1 9123-9, 57186-0, 2776-05 ####[facility]PITALIA [id number] [place] [address] [place] Glucose [Mass/Vol] 96 mg/dL Normal 74-99 [facility] Comment on above: Order Comment: Speci men Type: BLOOD SPECIMEN Result Comment: The [place] Diabetes Association (ADA) provides guidance for cutoff [...] Standards of Medical Care in Diabetes 2016, [place] [employer]. Diabetes Care. 2016.39(Suppl 1). Performed By: #### 1 9123-9, 95976-6, 2777- ####[facility]OSPITALIA [id number] [address] Potassium [Moles/Vol] 3.9 mmol/L Normal 3.7-5.1 [facility] Comment on above: Order Comment: Speci men Type: BLOOD SPECIMEN Performed By: #### 1 9123-9, 00545-4, 2776- ####[facility]ATORYCLIA [id number] [address] Sodium [Moles/Vol] 144 mmol/L Normal 136-144 [facility] Comment on above: Order Comment: Speci men Type: BLOOD SPECIMEN Performed By: #### 1 9123-9, 81704-1, 2776- ####[facility]ATORYCLIA [id number] [address] Urea nitrogen [Mass/Vol] 26 mg/dL High 9-24 [facility] Comment on above: Order Comment: Speci men Type: BLOOD SPECIMEN Performed By: #### 1 9123-9, 07817-6, 2776- ####[facility]ATORYCLIA [id number] [address] CBC panel Auto (Bld)on 06-05 Erythrocyte distribution width (RBC) [Ratio] 15.9 % High 11.5-15.0 [facility] Comment on above: Order Comment: Speci men Type: BLOOD SPECIMEN Performed By: #### 5 8410-2 ####[facility]ATORYCLIA [id number] [address] Hematocrit (Bld) [Volume fraction] 39.6 % Normal 39.0-51.0 [facility] Comment on above: Order Comment: Speci men Type: BLOOD SPECIMEN Performed By: #### 5 8410-2 ####[facility]ATORYCLIA [id number] [address] Hemoglobin (Bld) [Mass/Vol] 12.3 g/dL Low 13.0-17.0 [facility] Comment on above: Order Comment: Speci men Type: BLOOD SPECIMEN Performed By: #### 5 8410-2 ####[facility]ATORYCLIA [id number] [address] MCH (RBC) [Entitic mass] 28.1 pg Normal 26.0-34.0 [facility] Comment on above: Order Comment: Speci men Type: BLOOD SPECIMEN Performed By: #### 5 8410-2 ####[facility]ATORYCLIA [id number] [address] MCHC (RBC) [Mass/Vol] 31.1 g/dL Normal 30.5-36.0 [facility] Comment on above: Order Comment: Speci men Type: BLOOD SPECIMEN Performed By: #### 5 8410-2 ####[facility]ATORYCLIA [id number] [address] MCV (RBC) [Entitic vol] 90.4 fL Normal 80.0-100.0 [facility] Comment on above: Order Comment: Speci men Type: BLOOD SPECIMEN Performed By: #### 5 8410-2 ####[facility]ATORYCLIA [id number] [address] Nucleated RBC (Bld) [#/Vol] 10*3/uL Normal <0.01 [facility] Comment on above: Order Comment: Speci men Type: BLOOD SPECIMEN Performed By: #### 5 8410-2 ####[facility]ATORYCLIA [id number] [address] Platelet mean volume (Bld) [Entitic vol] 10.5 fL Normal 9.0-12.7 [facility] Comment on above: Order Comment: Speci men Type: BLOOD SPECIMEN Performed By: #### 5 8410-2 ####[facility]ATORYCLIA [id number] [address] Platelets (Bld) [#/Vol] 224 10*3/uL Normal 150-400 [facility] Comment on above: Order Comment: Speci men Type: BLOOD SPECIMEN Performed By: #### 5 8410-2 ####[facility]ORATORYCLIA [id number] [address] OF [facility] RBC (Bld) [#/Vol] 4.38 10*6/uL Normal 4.20-6.00 [facility] Comment on above: Order Comment: Speci men Type: BLOOD SPECIMEN Performed By: #### 5 8410-2 ####[facility]ATORYCLIA [id number] [address] STATES OF [facility] WBC (Bld) [#/Vol] 9.66 10*3/uL Normal 3.70-11.00 [facility] Comment on above: Order Comment: Speci men Type: BLOOD SPECIMEN Performed By: #### 5 8410-2 ####[facility]ORATORYCLIA [id number] [address] CONSULT PROGon 06-05-2021 CONSULT PROG Normal [facility] Gas and Carbon monoxide pane l (BldV)on 06-05-2021 Base excess Calc (BldV) [Moles/Vol] 1.8 mmol/L Normal 0-2 [facility] Comment on above: Order Comment: Speci men Type: VENOUS BLOOD SPECIMEN Performed By: #### 2 4344-4 ####[facility]ORATORYCLIA [id number] [address] Body temperature 100.4 [degF] Normal [facility] Comment on above: Order Comment: Speci men Type: VENOUS BLOOD SPECIMEN Performed By: #### 2 4344-4 ####[facility]ORATORYCLIA [id number] [address] OF [facility] CALCIUM IONIZED, PH CORRECTED 1.21 mmol/L Normal 1.08-1.30 [facility] Comment on above: Order Comment: Speci men Type: VENOUS BLOOD SPECIMEN Performed By: #### 2 4344-4 ####[facility]ATORYCLIA [id number] [address] Calcium.ionized (BldV) [Mass/Vol] 1.19 mmol/L Normal 1.08-1.30 [facility] Comment on above: Order Comment: Speci men Type: VENOUS BLOOD SPECIMEN Performed By: #### 2 4344-4 ####[facility]ATORYCLIA [id number] [address] Carboxyhemoglobin (BldV) [Mass fraction] 1.0 % Normal 0.0-2.0 [facility] Comment on above: Order Comment: Speci men Type: VENOUS BLOOD SPECIMEN Result Comment: Carb oxyhemoglobin Reference Range for Smokers: 2.0-8.0% Performed By: #### 2 4344-4 ####[facility]ATORYCLIA [id number] [address] CO2 (BldV) [Partial pressure] 41 mm[Hg] Low 42-55 [facility] Comment on above: Order Comment: Speci men Type: VENOUS BLOOD SPECIMEN Performed By: #### 2 4344-4 ####[facility]ATORYCLIA [id number] [address] CO2 [Moles/Vol] 23.4 mmol/L Low 25-29 [facility] Comment on above: Order Comment: Speci men Type: VENOUS BLOOD SPECIMEN Performed By: #### 2 4344-4 ####[facility]ATORYCLIA [id number] [address] CO2 adjusted to patient's actual temperature (BldV) [Partial pressure] 43 mmHg Normal 42-55 [facility] Comment on above: Order Comment: Speci men Type: VENOUS BLOOD SPECIMEN Performed By: #### 2 4344-4 ####[facility]ORYCLIA [id number] [address] STATES [facility] Glucose [Mass/Vol] 101 mg/dL Normal 60-105 [facility] Comment on above: Order Comment: Speci men Type: VENOUS BLOOD SPECIMEN Performed By: #### 2 4344-4 ####[facility]ORYCLIA [id number] [address] HCO3 (Bld) [Moles/Vol] 26.0 mmol/L Normal 24-28 [facility] Comment on above: Order Comment: Speci men Type: VENOUS BLOOD SPECIMEN Performed By: #### 2 4344-4 ####[facility]ATORYCLIA [id number] [address] OF [facility] Hematocrit (Bld) [Volume fraction] 38.4 % Low 39.0-51.0 [facility] Comment on above: Order Comment: Speci men Type: VENOUS BLOOD SPECIMEN Performed By: #### 2 4344-4 ####[facility]ORYCLIA [id number] [address] OF [facility] Hemoglobin (Bld) [Mass/Vol] 12.5 g/dL Low 13.0-17.0 [facility] Comment on above: Order Comment: Speci men Type: VENOUS BLOOD SPECIMEN Performed By: #### 2 4344-4 ####[facility]ATORYCLIA [id number] [address] Methemoglobin (Bld) [Mass fraction] % Normal 0.0-1.5 [facility] Comment on above: Order Comment: Speci men Type: VENOUS BLOOD SPECIMEN Performed By: #### 2 4344-4 ####[facility] LABORATORYCLIA [id number] [address] [place] O2 THERAPY Ventilator Normal [facility] Comment on above: Order Comment: Speci men Type: VENOUS BLOOD SPECIMEN Performed By: #### 2 4344-4 ####[facility]ORYCLIA [id number] [address] Oxygen (BldV) [Partial pressure] 44 mm[Hg] Normal 35-45 [facility] Comment on above: Order Comment: Speci men Type: VENOUS BLOOD SPECIMEN Performed By: #### 2 4344-4 ####[facility]ORYCLIA [id number] [address] Oxygen adjusted to patient's actual temperature (BldV) [Partial pressure] 46.8 mmHg High 35-45 [facility] Comment on above: Order Comment: Speci men Type: VENOUS BLOOD SPECIMEN Performed By: #### 2 4344-4 ####[facility]ORYCLIA [id number] [address] Oxygen saturation in Blood 76.5 % Normal 60-85 [facility] Comment on above: Order Comment: Speci men Type: VENOUS BLOOD SPECIMEN Performed By: #### 2 4344-4 ####[facility]ORYCLIA [id number] [address] Oxyhemoglobin (BldV) [Mass fraction] 75 % Normal 60-85 [facility] Comment on above: Order Comment: Speci men Type: VENOUS BLOOD SPECIMEN Performed By: #### 2 4344-4 ####[facility]ORYCLIA [id number] [address] [place] pH (BldV) 7.42 [pH] Normal 7.32-7.42 [facility] Comment on above: Order Comment: Speci men Type: VENOUS BLOOD SPECIMEN Performed By: #### 2 4344-4 ####[facility]ORYCLIA [id number] [address] pH adjusted to patient's actual temperature (BldV) 7.40 Normal 7.32-7.42 [facility] Comment on above: Order Comment: Speci men Type: VENOUS BLOOD SPECIMEN Performed By: #### 2 4344-4 ####[facility]ORYCLIA [id number] [address] OF [facility] Potassium [Moles/Vol] 3.7 mmol/L Normal 3.5-5.0 [facility] Comment on above: Order Comment: Speci men Type: VENOUS BLOOD SPECIMEN Performed By: #### 2 4344-4 ####[facility]ORYCLIA [id number] [address] [place] Sodium [Moles/Vol] 141 mmol/L Normal 136-144 [facility] Comment on above: Order Comment: Speci men Type: VENOUS BLOOD SPECIMEN Performed By: #### 2 4344-4 ####[facility]ATORYCLIA [id number] [place], [place] [address] [place] [address] [place] Magnesium SerPl-mCncon 06-05 Magnesium [Mass/Vol] 2.3 mg/dL Normal 1.7-2.3 [facility] Comment on above: Order Comment: Speci men Type: BLOOD SPECIMEN Performed By: #### 1 9123-9, 19567-5, 2777-1 ####[facility]ATORYCLIA [id number] [place] [address] [place] Phosphate SerPl-mCncon 06-05 Phosphate [Mass/Vol] 2.9 mg/dL Normal 2.7-4.8 [facility] Comment on above: Order Comment: Speci men Type: BLOOD SPECIMEN Performed By: #### 1 9123-9, 44480-4, 2777-1 ####[facility]ATORYCLIA [id number] [address] [place] Vancomycin random [Mass/Vol] on 06-05-2021 Vancomycin [Mass/Vol] 23.2 ug/mL High 10.0-20.0 [facility] Comment on above: Order Comment: Speci men Type: BLOOD SPECIMEN Result Comment: Refe rence ranges and high/low indicator flags are provided as general guidelines only. The treating physician must determine appropriate target levels/dosing based on the specific clinical situation. Performed By: #### 4 091-5 ####[facility]ATORYCLIA [id number] [place] [address] [place] (1,3)-R-S-NIITRFjb 2 (1,3) B-D GLUCAN <31 Normal <60 [facility] Comment on above: Order Comment: Speci men Type: BLOOD SPECIMEN Performed By: #### B DGLUC ####[facility] LABCLIA [id number] [id number] [address] [place] (1,3) B-D GLUCAN, QUAL Negative Normal NEGAT [facility] Comment on above: Order Comment: Speci men Type: BLOOD SPECIMEN Result Comment: Cert ain fungi, such as the genus Cryptococcus which produces very low levels of (1,3)-pzxc-F-uhtmah, may not result in serum (1,3)-qsyx-L-yzbqbi sufficiently elevated so as to be detected by the assay. Infections with fungi of the order Mucorales such as Absidia, Mucor and Rhizopus which are not known to produce (1,3)-lmnu-I-gwfaae, are also observed to yield low serum (1,3)-mozh-D-gxinas titers.In addition, the yeast phase of Blastomyces dermatitidis produces little (1,3)-nyyk-V-wexsbz and may not be detected by the assay. Performed By: #### B DGLUC ####[facility] LABCLIA [id number] [facility] AV[facility]UREL [facility] [id number] [address] [place] ALLIED HEALTHon 06-04-2021 ALLIED HEALTH Normal [facility] ALLIED HEALTH Normal [facility] ARTERIAL BLOOD GASESon 06-04 Base excess Calc (Bld) [Moles/Vol] 3 mmol/L High 0-2 [facility] Comment on above: Order Comment: Speci men Type: ARTERIAL BLOOD SPECIMEN Performed By: #### A LLBG ####[facility]ATORYCLIA [id number] [address] [place] Body temperature 98.06 [degF] Normal [facility] Comment on above: Order Comment: Speci men Type: ARTERIAL BLOOD SPECIMEN Performed By: #### A LLBG ####[facility]ATORYCLIA [id number] [address] [place] CALCIUM IONIZED, PH CORRECTED 1.19 mmol/L Normal 1.08-1.30 [facility] Comment on above: Order Comment: Speci men Type: ARTERIAL BLOOD SPECIMEN Performed By: #### A LLBG ####[facility]ATORYCLIA [id number] [place] [address] [place] Calcium.ionized (BldV) [Mass/Vol] 1.14 mmol/L Normal 1.08-1.30 [facility] Comment on above: Order Comment: Speci men Type: ARTERIAL BLOOD SPECIMEN Performed By: #### A LLBG ####[facility]ORYCLIA [id number] [address] Carboxyhemoglobin (BldA) [Mass fraction] 1.2 % Normal 0.0-2.0 [facility] Comment on above: Order Comment: Speci men Type: ARTERIAL BLOOD SPECIMEN Result Comment: Carb oxyhemoglobin Reference Range for Smokers: 2.0-8.0% Performed By: #### A LLBG ####[facility]ORYCLIA [id number] [address] CO2 (Bld) [Partial pressure] 35 mm Hg Low 36-46 [facility] Comment on above: Order Comment: Speci men Type: ARTERIAL BLOOD SPECIMEN Performed By: #### A LLBG ####[facility]ORYCLIA [id number] [address] CO2 [Moles/Vol] 23.2 mmol/L Normal 22-28 [facility] Comment on above: Order Comment: Speci men Type: ARTERIAL BLOOD SPECIMEN Performed By: #### A LLBG ####[facility]ORYCLIA [id number] [address] CO2 adjusted to patient's actual temperature (Bld) [Partial pressure] 34 mmHg Low 36-46 [facility] Comment on above: Order Comment: Speci men Type: ARTERIAL BLOOD SPECIMEN Performed By: #### A LLBG ####[facility]ORYCLIA [id number] [address] [place] Glucose [Mass/Vol] 115 mg/dL High 60-105 [facility] Comment on above: Order Comment: Speci men Type: ARTERIAL BLOOD SPECIMEN Performed By: #### A LLBG ####[facility]ORYCLIA [id number] [address] [place] HCO3 (Bld) [Moles/Vol] 26 mmol/L Normal 22-26 [facility] Comment on above: Order Comment: Speci men Type: ARTERIAL BLOOD SPECIMEN Performed By: #### A LLBG ####[facility]ORYCLIA [id number] [address] Hematocrit (Bld) [Volume fraction] 35.3 % Low 39.0-51.0 [facility] Comment on above: Order Comment: Speci men Type: ARTERIAL BLOOD SPECIMEN Performed By: #### A LLBG ####[facility]ORYCLIA [id number] [address] Hemoglobin (Bld) [Mass/Vol] 11.5 g/dL Low 13.0-17.0 [facility] Comment on above: Order Comment: Speci men Type: ARTERIAL BLOOD SPECIMEN Performed By: #### A LLBG ####[facility]ATORYCLIA [id number] [address] Methemoglobin (Bld) [Mass fraction] % Normal 0.0-1.5 [facility] Comment on above: Order Comment: Speci men Type: ARTERIAL BLOOD SPECIMEN Performed By: #### A LLBG ####[facility]ORYCLIA [id number] [address] O2 THERAPY Ventilator Normal [facility] Comment on above: Order Comment: Speci men Type: ARTERIAL BLOOD SPECIMEN Performed By: #### A LLBG ####[facility]ORYCLIA [id number] [address] Oxygen (Bld) [Partial pressure] 66 mm Hg Low 85-95 [facility] Comment on above: Order Comment: Speci men Type: ARTERIAL BLOOD SPECIMEN Performed By: #### A LLBG ####[facility]ORYCLIA [id number] [address] Oxygen adjusted to patient's actual temperature (Bld) [Partial pressure] 64.3 mmHg Low 85-95 [facility] Comment on above: Order Comment: Speci men Type: ARTERIAL BLOOD SPECIMEN Performed By: #### A LLBG ####[facility]ORYCLIA [id number] [address] OXYGEN SATURATION, ARTERIAL 95 % Normal 95-98 [facility] Comment on above: Order Comment: Speci men Type: ARTERIAL BLOOD SPECIMEN Performed By: #### A LLBG ####[facility]ORYCLIA [id number] [address] Oxyhemoglobin (BldA) [Mass fraction] 93 % Low 95-98 [facility] Comment on above: Order Comment: Speci men Type: ARTERIAL BLOOD SPECIMEN Performed By: #### A LLBG ####[facility]ORYCLIA [id number] [address] pH (Bld) 7.49 [pH] High 7.35-7.45 [facility] Comment on above: Order Comment: Speci men Type: ARTERIAL BLOOD SPECIMEN Performed By: #### A LLBG ####[facility]ORYCLIA [id number] [address] pH adjusted to patient's actual temperature (Bld) 7.49 High 7.35-7.45 [facility] Comment on above: Order Comment: Speci men Type: ARTERIAL BLOOD SPECIMEN Performed By: #### A LLBG ####[facility]ORYCLIA [id number] [address] Potassium [Moles/Vol] 2.8 mmol/L Low 3.5-5.0 [facility] Comment on above: Order Comment: Speci men Type: ARTERIAL BLOOD SPECIMEN Performed By: #### A LLBG ####[facility]ORYCLIA [id number] [address] Bas Metab 2000 Pnl SerPlon 0 06-04-2021 Sodium [Moles/Vol] 143 mmol/L Normal 136-144 [facility] Comment on above: Order Comment: Speci men Type: BLOOD SPECIMEN Performed By: #### 2 777-1, 53042-9, 24453-7 ####[facility]ORYCLIA [id number] [address] Order Comment: Speci men Type: ARTERIAL BLOOD SPECIMEN Performed By: #### A LLBG ####[facility]ORYCLIA [id number] [address] Basic metabolic 2000 panelon 06-04-2021 Anion gap [Moles/Vol] 11 mmol/L Normal 9-18 [facility] Comment on above: Order Comment: Speci men Type: BLOOD SPECIMEN Performed By: #### 2 777-1, , ####[facility]ORYCLIA [id number] [address] OF [facility] Calcium [Mass/Vol] 8.5 mg/dL Normal 8.5-10.2 [facility] Comment on above: Order Comment: Speci men Type: BLOOD SPECIMEN Performed By: #### 2 777-1, , ####[facility]ATORYCLIA [id number] [address] OF [facility] Chloride [Moles/Vol] 107 mmol/L High 97-105 [facility] Comment on above: Order Comment: Speci men Type: BLOOD SPECIMEN Performed By: #### 2 777-1, , ####[facility]ATORYCLIA [id number] [address] [place] CO2 [Moles/Vol] 25 mmol/L Normal 22-30 [facility] Comment on above: Order Comment: Speci men Type: BLOOD SPECIMEN Performed By: #### 2 777-1, , ####[facility]ATORYCLIA [id number] [address] [place] Creatinine [Mass/Vol] 0.77 mg/dL Normal 0.73-1.22 [facility] Comment on above: Order Comment: Speci men Type: BLOOD SPECIMEN Performed By: #### 2 777-1, , 31255-9 ####[facility]OSPITALIA [id number] [place] [address] [place] GFR/1.73 sq M.predicted MDRD (S/P/Bld) [Vol rate/Area] mL/min/{1.73_m2} Normal [facility] Comment on above: Order [...] actual GFR. Performed By: #### 2 777-1, 60951-6, 54963-2 ####[facility]OSPITALIA [id number] [place] [address] [place] Glucose [Mass/Vol] 107 mg/dL High 74-99 [facility] Comment on above: Order Comment: Speci men Type: BLOOD SPECIMEN Result Comment: The [place] Diabetes [employer] (ADA) provides guidance for cutoff [...] Standards of Medical Care in Diabetes 2016, [place] [employer]. Diabetes Care. 2016.39(Suppl 1). Performed By: #### 2 777-1, 05933-3, 59430-4 ####[facility] LABORATORYIA [id number] [place] [address] [place] Potassium [Moles/Vol] 3.1 mmol/L Low 3.7-5.1 [facility] Comment on above: Order Comment: Speci men Type: BLOOD SPECIMEN Performed By: #### 2 777-1, , 92687-8 ####[facility] LABORATORYCLIA [id number] [address] Urea nitrogen [Mass/Vol] 19 mg/dL Normal 9-24 [facility] Comment on above: Order Comment: Speci men Type: BLOOD SPECIMEN Performed By: #### 2 777-1, , ####[facility] LABORATORYCLIA [id number] [address] CBC panel Auto (Bld)on 06-04 Erythrocyte distribution width (RBC) [Ratio] 15.8 % High 11.5-15.0 [facility] Comment on above: Order Comment: Speci men Type: BLOOD SPECIMEN Performed By: #### 5 8410-2 ####[facility]ORATORYCLIA [id number] [address] Hematocrit (Bld) [Volume fraction] 36.9 % Low 39.0-51.0 [facility] Comment on above: Order Comment: Speci men Type: BLOOD SPECIMEN Performed By: #### 5 8410-2 ####[facility]ORATORYCLIA [id number] [address] Hemoglobin (Bld) [Mass/Vol] 11.2 g/dL Low 13.0-17.0 [facility] Comment on above: Order Comment: Speci men Type: BLOOD SPECIMEN Performed By: #### 5 8410-2 ####[facility]ORATORYCLIA [id number] [address] MCH (RBC) [Entitic mass] 27.3 pg Normal 26.0-34.0 [facility] Comment on above: Order Comment: Speci men Type: BLOOD SPECIMEN Performed By: #### 5 8410-2 ####[facility]ORATORYCLIA [id number] [address] MCHC (RBC) [Mass/Vol] 30.4 g/dL Low 30.5-36.0 [facility] Comment on above: Order Comment: Speci men Type: BLOOD SPECIMEN Performed By: #### 5 8410-2 ####[facility]ORATORYCLIA [id number] [address] MCV (RBC) [Entitic vol] 89.8 fL Normal 80.0-100.0 [facility] Comment on above: Order Comment: Speci men Type: BLOOD SPECIMEN Performed By: #### 5 8410-2 ####[facility] LABORATORYCLIA [id number] [address] Nucleated RBC (Bld) [#/Vol] 10*3/uL Normal <0.01 [facility] Comment on above: Order Comment: Speci men Type: BLOOD SPECIMEN Performed By: #### 5 8410-2 ####[facility]ORATORYCLIA [id number] [address] Platelet mean volume (Bld) [Entitic vol] 10.7 fL Normal 9.0-12.7 [facility] Comment on above: Order Comment: Speci men Type: BLOOD SPECIMEN Performed By: #### 5 8410-2 ####[facility]ORATORYCLIA [id number] [address] Platelets (Bld) [#/Vol] 174 10*3/uL Normal 150-400 [facility] Comment on above: Order Comment: Speci men Type: BLOOD SPECIMEN Performed By: #### 5 8410-2 ####[facility]ORATORYCLIA [id number] [address] RBC (Bld) [#/Vol] 4.11 10*6/uL Low 4.20-6.00 [facility] Comment on above: Order Comment: Speci men Type: BLOOD SPECIMEN Performed By: #### 5 8410-2 ####[facility] LABORATORYCLIA [id number] [place], [place] [id number] [place] [address] [place] WBC (Bld) [#/Vol] 8.29 10*3/uL Normal 3.70-11.00 [facility] Comment on above: Order Comment: Speci men Type: BLOOD SPECIMEN Performed By: #### 5 8410-2 ####[facility]ORATORYCLIA [id number] [address] [place] CONSULT PROGon 06-04-2021 CONSULT PROG Normal [facility] CT BRAIN WO IVCONon 06-04-19 CT BRAIN WO IVCON Normal [facility] CT CHEST W IVCON PEon 2021 CT CHEST W IVCON PE Normal [facility] Magnesium SerPl-mCncon 06-04 Magnesium [Mass/Vol] 2.2 mg/dL Normal 1.7-2.3 [facility] Comment on above: Order Comment: Speci men Type: BLOOD SPECIMEN Performed By: #### 2 777-1, 11244-3, 61142-1 ####[facility]ORATORYCLIA [id number] [address] NT-proBNP SerPl-mCncon 06-04 Natriuretic peptide.B prohormone N-Terminal [Mass/Vol] 229 pg/mL High <125 [facility] Comment on above: Order Comment: Speci men Type: BLOOD SPECIMEN Performed By: #### 3 3762-6, 4091-5 ####[facility]ORATORYCLIA [id number] [address] [place] Phosphate SerPl-mCncon 06-04 Phosphate [Mass/Vol] 2.0 mg/dL Low 2.7-4.8 [facility] Comment on above: Order Comment: Speci men Type: BLOOD SPECIMEN Performed By: #### 2 777-1, 95633-7, 34723-1 ####[facility] LABORATORYCLIA [id number] [place] [id number] [place] Vancomycin random [Mass/Vol] on 06-04-2021 Vancomycin [Mass/Vol] 35.2 ug/mL High 10.0-20.0 [facility] Comment on above: Order Comment: Speci men Type: BLOOD SPECIMEN Result Comment: Refe rence ranges and high/low indicator flags are provided as general guidelines only. The treating physician must determine appropriate target levels/dosing based on the specific clinical situation. Performed By: #### 3 3762-6, 4091-5 ####[facility]ORATORYCLIA [id number] [address] OF [facility] XR ABDOMEN 1V SUPINEon 06-04 XR ABDOMEN 1V SUPINE Normal [facility] ALLIED HEALTHon 06-03-2021 ALLIED HEALTH Normal [facility] ARTERIAL BLOOD GASESon 06-03 Base excess Calc (Bld) [Moles/Vol] 5 mmol/L High 0-2 [facility] Comment on above: Order Comment: Speci men Type: ARTERIAL BLOOD SPECIMEN Performed By: #### A LLBG ####[facility]ORATORYCLIA [id number] [address] Body temperature 99.5 [degF] Normal [facility] Comment on above: Order Comment: Speci men Type: ARTERIAL BLOOD SPECIMEN Performed By: #### A LLBG ####[facility]ORATORYCLIA [id number] [address] CALCIUM IONIZED, PH CORRECTED 1.18 mmol/L Normal 1.08-1.30 [facility] Comment on above: Order Comment: Speci men Type: ARTERIAL BLOOD SPECIMEN Performed By: #### A LLBG ####[facility]ORATORYCLIA [id number] [address] STATES [facility] Calcium.ionized (BldV) [Mass/Vol] 1.16 mmol/L Normal 1.08-1.30 [facility] Comment on above: Order Comment: Speci men Type: ARTERIAL BLOOD SPECIMEN Performed By: #### A LLBG ####[facility]ORATORYCLIA [id number] [address] Carboxyhemoglobin (BldA) [Mass fraction] 1.2 % Normal 0.0-2.0 [facility] Comment on above: Order Comment: Speci men Type: ARTERIAL BLOOD SPECIMEN Result Comment: Carb oxyhemoglobin Reference Range for Smokers: 2.0-8.0% Performed By: #### A LLBG ####[facility]ORYCLIA [id number] [address] CO2 (Bld) [Partial pressure] 45 mm Hg Normal 36-46 [facility] Comment on above: Order Comment: Speci men Type: ARTERIAL BLOOD SPECIMEN Performed By: #### A LLBG ####[facility]ORYCLIA [id number] [address] CO2 [Moles/Vol] 26.9 mmol/L Normal 22-28 [facility] Comment on above: Order Comment: Speci men Type: ARTERIAL BLOOD SPECIMEN Performed By: #### A LLBG ####[facility]ORYCLIA [id number] [address] CO2 adjusted to patient's actual temperature (Bld) [Partial pressure] 47 mmHg High 36-46 [facility] Comment on above: Order Comment: Speci men Type: ARTERIAL BLOOD SPECIMEN Performed By: #### A LLBG ####[facility]ORYCLIA [id number] [address] [place] Glucose [Mass/Vol] 141 mg/dL High 60-105 [facility] Comment on above: Order Comment: Speci men Type: ARTERIAL BLOOD SPECIMEN Performed By: #### A LLBG ####[facility]ATORYCLIA [id number] [address] HCO3 (Bld) [Moles/Vol] 30 mmol/L High 22-26 [facility] Comment on above: Order Comment: Speci men Type: ARTERIAL BLOOD SPECIMEN Performed By: #### A LLBG ####[facility]ORYCLIA [id number] [address] Hematocrit (Bld) [Volume fraction] 35.8 % Low 39.0-51.0 [facility] Comment on above: Order Comment: Speci men Type: ARTERIAL BLOOD SPECIMEN Performed By: #### A LLBG ####[facility]ORYCLIA [id number] [address] Hemoglobin (Bld) [Mass/Vol] 11.6 g/dL Low 13.0-17.0 [facility] Comment on above: Order Comment: Speci men Type: ARTERIAL BLOOD SPECIMEN Performed By: #### A LLBG ####[facility]ORYCLIA [id number] [address] Methemoglobin (Bld) [Mass fraction] % Normal 0.0-1.5 [facility] Comment on above: Order Comment: Speci men Type: ARTERIAL BLOOD SPECIMEN Performed By: #### A LLBG ####[facility]ORYCLIA [id number] [address] O2 THERAPY Ventilator Normal [facility] Comment on above: Order Comment: Speci men Type: ARTERIAL BLOOD SPECIMEN Performed By: #### A LLBG ####[facility]ORYCLIA [id number] [address] Oxygen (Bld) [Partial pressure] 69 mm Hg Low 85-95 [facility] Comment on above: Order Comment: Speci men Type: ARTERIAL BLOOD SPECIMEN Performed By: #### A LLBG ####[facility]ORYCLIA [id number] [address] Oxygen adjusted to patient's actual temperature (Bld) [Partial pressure] 70.8 mmHg Low 85-95 [facility] Comment on above: Order Comment: Speci men Type: ARTERIAL BLOOD SPECIMEN Performed By: #### A LLBG ####[facility]ORYCLIA [id number] [address] OXYGEN SATURATION, ARTERIAL 94 % Low 95-98 [facility] Comment on above: Order Comment: Speci men Type: ARTERIAL BLOOD SPECIMEN Performed By: #### A LLBG ####[facility]ATORYCLIA [id number] [address] Oxyhemoglobin (BldA) [Mass fraction] 93 % Low 95-98 [facility] Comment on above: Order Comment: Speci men Type: ARTERIAL BLOOD SPECIMEN Performed By: #### A LLBG ####[facility]ATORYCLIA [id number] [address] OF [facility] pH (Bld) 7.43 [pH] Normal 7.35-7.45 [facility] Comment on above: Order Comment: Speci men Type: ARTERIAL BLOOD SPECIMEN Performed By: #### A LLBG ####[facility]ORYCLIA [id number] [address] pH adjusted to patient's actual temperature (Bld) 7.43 Normal 7.35-7.45 [facility] Comment on above: Order Comment: Speci men Type: ARTERIAL BLOOD SPECIMEN Performed By: #### A LLBG ####[facility]ATORYCLIA [id number] [address] Potassium [Moles/Vol] 3.1 mmol/L Low 3.5-5.0 [facility] Comment on above: Order Comment: Speci men Type: ARTERIAL BLOOD SPECIMEN Performed By: #### A LLBG ####[facility]ATORYCLIA [id number] [address] OF [facility] Sodium [Moles/Vol] 145 mmol/L High 136-144 [facility] Comment on above: Order Comment: Speci men Type: ARTERIAL BLOOD SPECIMEN Performed By: #### A LLBG ####[facility]ORATORYCLIA [id number] [address] ASPERGILLUS GALACTOMANNAN SE RUMon 06-03-2021 Galactomannan [...] is suspected. Performed By: #### A SGALS ####[facility] LABCLIA [id number] [place] [facility] [address] OF [facility] Galactomannan Ag IA Qn <0.50 Normal [facility] Comment on above: Order Comment: Speci men Type: BLOOD SPECIMEN Result Comment: Inde x Values are Interpreted as Follows:Negative specimens <0.50Positive specimens >=0.50 Performed By: #### A SGALS ####[facility] LABCLIA [id number] [place] [address] [place] Basic metabolic 2000 panelon 06-03-2021 Anion gap [Moles/Vol] 8 mmol/L Low 9-18 [facility] Comment on above: Order Comment: Speci men Type: BLOOD SPECIMEN Performed By: #### 1 9123-9, 2777-, 81033-8 ####[facility]ORATORYCLIA [id number] [place] [address] [place] Calcium [Mass/Vol] 8.0 mg/dL Low 8.5-10.2 [facility] Comment on above: Order Comment: Speci men Type: BLOOD SPECIMEN Performed By: #### 1 9123-9, 2777-1, 92782-7 ####[facility]ORATORYCLIA [id number] [place] [address] [place] Chloride [Moles/Vol] 110 mmol/L High 97-105 [facility] Comment on above: Order Comment: Speci men Type: BLOOD SPECIMEN Performed By: #### 1 9123-9, 2777-1, 40380-2 ####[facility]ATORYCLIA [id number] [place] [address] [place] CO2 [Moles/Vol] 28 mmol/L Normal 22-30 [facility] Comment on above: Order Comment: Speci men Type: BLOOD SPECIMEN Performed By: #### 1 9123-9, 2777-1, 54182-0 ####[facility]ORATORYCLIA [id number] [place] [id number] [place] Creatinine [Mass/Vol] 0.75 mg/dL Normal 0.73-1.22 [facility] Comment on above: Order [facility]: [facility]: BLOOD SPECIMEN Performed By: #### 1 9123-9, 2777-, 13147-9 ####[facility]ORATORYCLIA [id number] [address] [place] GFR/1.73 sq M.predicted MDRD (S/P/Bld) [Vol rate/Area] mL/min/{1.73_m2} Normal [facility] Comment on above: Order [...] GFR. Performed By: #### 1 9123-9, 2777-1, 53163-5 ####[facility]ATORYCLIA [id number] [address] [place] Glucose [Mass/Vol] 141 mg/dL High 74-99 [facility] Comment on above: Order Comment: Speci [facility] Type: BLOOD SPECIMEN Result Comment: The [place] Diabetes [employer] (ADA) provides guidance for cutoff [...] Standards of Medical Care in Diabetes 2016, [place] [employer]. Diabetes Care. 2016.39(Suppl 1). Performed By: #### 1 9123-9, 2777-1, 31118-8 ####[facility]ATORYCLIA [id number] [address] STATES OF [facility] Potassium [Moles/Vol] 3.3 mmol/L Low 3.7-5.1 [facility] Comment on above: Order Comment: Speci men Type: BLOOD SPECIMEN Performed By: #### 1 9123-9, 27711-04, 32503-5 ####[facility]ATORYCLIA [id number] [address] Sodium [Moles/Vol] 146 mmol/L High 136-144 [facility] Comment on above: Order Comment: Speci men Type: BLOOD SPECIMEN Performed By: #### 1 9123-9, 27711-04, 43881-3 ####[facility]ATORYCLIA [id number] [address] Urea nitrogen [Mass/Vol] 10 mg/dL Normal 9-24 [facility] Comment on above: Order Comment: Speci men Type: BLOOD SPECIMEN Performed By: #### 1 9123-9, 2777, 52475-1 ####[facility]ATORYCLIA [id number] [address] CASE MANAGEMon 06-03-2021 CASE MANAGEM Normal [facility] CBC panel Auto (Bld)on 06-03 Erythrocyte distribution width (RBC) [Ratio] 15.6 % High 11.5-15.0 [facility] Comment on above: Order Comment: Speci men Type: BLOOD SPECIMEN Performed By: #### 5 8410-2 ####[facility]ATORYCLIA [id number] [address] Hematocrit (Bld) [Volume fraction] 36.9 % Low 39.0-51.0 [facility] Comment on above: Order Comment: Speci men Type: BLOOD SPECIMEN Performed By: #### 5 8410-2 ####[facility]ATORYCLIA [id number] [address] Hemoglobin (Bld) [Mass/Vol] 11.1 g/dL Low 13.0-17.0 [facility] Comment on above: Order Comment: Speci men Type: BLOOD SPECIMEN Performed By: #### 5 8410-2 ####[facility]ATORYCLIA [id number] [address] MCH (RBC) [Entitic mass] 27.0 pg Normal 26.0-34.0 [facility] Comment on above: Order Comment: Speci men Type: BLOOD SPECIMEN Performed By: #### 5 8410-2 ####[facility]ATORYCLIA [id number] [address] MCHC (RBC) [Mass/Vol] 30.1 g/dL Low 30.5-36.0 [facility] Comment on above: Order Comment: Speci men Type: BLOOD SPECIMEN Performed By: #### 5 8410-2 ####[facility]ATORYCLIA [id number] [address] MCV (RBC) [Entitic vol] 89.8 fL Normal 80.0-100.0 [facility] Comment on above: Order Comment: Speci men Type: BLOOD SPECIMEN Performed By: #### 5 8410-2 ####[facility]ATORYCLIA [id number] [address] Nucleated RBC (Bld) [#/Vol] 10*3/uL Normal <0.01 [facility] Comment on above: Order Comment: Speci men Type: BLOOD SPECIMEN Performed By: #### 5 8410-2 ####[facility]ORYCLIA [id number] [address] Platelet mean volume (Bld) [Entitic vol] 10.5 fL Normal 9.0-12.7 [facility] Comment on above: Order Comment: Speci men Type: BLOOD SPECIMEN Performed By: #### 5 8410-2 ####[facility]ATORYCLIA [id number] [address] Platelets (Bld) [#/Vol] 196 10*3/uL Normal 150-400 [facility] Comment on above: Order Comment: Speci men Type: BLOOD SPECIMEN Performed By: #### 5 8410-2 ####[facility]ATORYCLIA [id number] [address] STATES OF [facility] RBC (Bld) [#/Vol] 4.11 10*6/uL Low 4.20-6.00 [facility] Comment on above: Order Comment: Speci men Type: BLOOD SPECIMEN Performed By: #### 5 8410-2 ####[facility]ATORYCLIA [id number] [address] WBC (Bld) [#/Vol] 8.18 10*3/uL Normal 3.70-11.00 [facility] Comment on above: Order Comment: Speci men Type: BLOOD SPECIMEN Performed By: #### 5 8410-2 ####[facility]ATORYCLIA [id number] [address] OF [facility] CONSULTon 06-03-2021 CONSULT Normal [facility] CONSULT PROGon 06-03-2021 CONSULT PROG Normal [facility] Gas and Carbon monoxide pane l (BldV)on 06-03-2021 Base excess Calc (BldV) [Moles/Vol] 1.4 mmol/L Normal 0-2 [facility] Comment on above: Order Comment: Speci men Type: VENOUS BLOOD SPECIMEN Performed By: #### 2 4344-4 ####[facility]ORATORYCLIA [id number] [address] Body temperature 98.42 [degF] Normal [facility] Comment on above: Order Comment: Speci men Type: VENOUS BLOOD SPECIMEN Performed By: #### 2 4344-4 ####[facility]ATORYCLIA [id number] [address] CALCIUM IONIZED, PH CORRECTED 1.09 mmol/L Normal 1.08-1.30 [facility] Comment on above: Order Comment: Speci men Type: VENOUS BLOOD SPECIMEN Performed By: #### 2 4344-4 ####[facility]ORYCLIA [id number] [address] Calcium.ionized (BldV) [Mass/Vol] 1.12 mmol/L Normal 1.08-1.30 [facility] Comment on above: Order Comment: Speci men Type: VENOUS BLOOD SPECIMEN Performed By: #### 2 4344-4 ####[facility]ORYCLIA [id number] [address] Carboxyhemoglobin (BldV) [Mass fraction] 1.7 % Normal 0.0-2.0 [facility] Comment on above: Order Comment: Speci men Type: VENOUS BLOOD SPECIMEN Result Comment: Carb oxyhemoglobin Reference Range for Smokers: 2.0-8.0% Performed By: #### 2 4344-4 ####[facility]ORYCLIA [id number] [address] CO2 (BldV) [Partial pressure] 50 mm[Hg] Normal 42-55 [facility] Comment on above: Order Comment: Speci men Type: VENOUS BLOOD SPECIMEN Performed By: #### 2 4344-4 ####[facility]ORYCLIA [id number] [address] CO2 [Moles/Vol] 24.9 mmol/L Low 25-29 [facility] Comment on above: Order Comment: Speci men Type: VENOUS BLOOD SPECIMEN Performed By: #### 2 4344-4 ####[facility]ORYCLIA [id number] [address] CO2 adjusted to patient's actual temperature (BldV) [Partial pressure] 50 mmHg Normal 42-55 [facility] Comment on above: Order Comment: Speci men Type: VENOUS BLOOD SPECIMEN Performed By: #### 2 4344-4 ####[facility]ATORYCLIA [id number] [address] [place] FIO2 30 % Normal [facility] Comment on above: Order Comment: Speci men Type: VENOUS BLOOD SPECIMEN Performed By: #### 2 4344-4 ####[facility]ORYCLIA [id number] [address] Glucose [Mass/Vol] 191 mg/dL High 60-105 [facility] Comment on above: Order Comment: Speci men Type: VENOUS BLOOD SPECIMEN Performed By: #### 2 4344-4 ####[facility]ORYCLIA [id number] [address] [place] HCO3 (Bld) [Moles/Vol] 27.1 mmol/L Normal 24-28 [facility] Comment on above: Order Comment: Speci men Type: VENOUS BLOOD SPECIMEN Performed By: #### 2 4344-4 ####[facility]ORYCLIA [id number] [address] [place] Hematocrit (Bld) [Volume fraction] 36.2 % Low 39.0-51.0 [facility] Comment on above: Order Comment: Speci men Type: VENOUS BLOOD SPECIMEN Performed By: #### 2 4344-4 ####[facility]ORYCLIA [id number] [address] [place] Hemoglobin (Bld) [Mass/Vol] 11.8 g/dL Low 13.0-17.0 [facility] Comment on above: Order Comment: Speci men Type: VENOUS BLOOD SPECIMEN Performed By: #### 2 4344-4 ####[facility]ORYCLIA [id number] [address] INHALED TIDAL VOLUME (ML) 530 Normal [facility] Comment on above: Order Comment: Speci men Type: VENOUS BLOOD SPECIMEN Performed By: #### 2 4344-4 ####[facility]ATORYCLIA [id number] [place], [place] [id number] [place] [address] [place] Methemoglobin (Bld) [Mass fraction] % Normal 0.0-1.5 [facility] Comment on above: Order Comment: Speci men Type: VENOUS BLOOD SPECIMEN Performed By: #### 2 4344-4 ####[facility]ATORYCLIA [id number] [place], [place] [id number] [place] [address] O2 THERAPY Ventilator Normal [facility] Comment on above: Order Comment: Speci men Type: VENOUS BLOOD SPECIMEN Performed By: #### 2 4344-4 ####[facility]ORYCLIA [id number] [address] Oxygen (BldV) [Partial pressure] 69 mm[Hg] High 35-45 [facility] Comment on above: Order Comment: Speci men Type: VENOUS BLOOD SPECIMEN Performed By: #### 2 4344-4 ####[facility]ATORYCLIA [id number] [address] Oxygen adjusted to patient's actual temperature (BldV) [Partial pressure] 68.8 mmHg High 35-45 [facility] Comment on above: Order Comment: Speci men Type: VENOUS BLOOD SPECIMEN Performed By: #### 2 4344-4 ####[facility]ORYCLIA [id number] [place], [place] [address] [place] [address] [place] Oxygen saturation in Blood 92.4 % High 60-85 [facility] Comment on above: Order Comment: Speci men Type: VENOUS BLOOD SPECIMEN Performed By: #### 2 4344-4 ####[facility]ORYCLIA [id number] [place], [place] [address] [place] [address] [place] Oxyhemoglobin (BldV) [Mass fraction] 90 % High 60-85 [facility] Comment on above: Order Comment: Speci men Type: VENOUS BLOOD SPECIMEN Performed By: #### 2 4344-4 ####[facility]ORYCLIA [id number] [place], [place] [address] [place] [address] [place] PEEP/CPAP 8 cmH2O Normal [facility] Comment on above: Order Comment: Speci men Type: VENOUS BLOOD SPECIMEN Performed By: #### 2 4344-4 ####[facility]ORYCLIA [id number] [address] pH (BldV) 7.35 [pH] Normal 7.32-7.42 [facility] Comment on above: Order Comment: Speci men Type: VENOUS BLOOD SPECIMEN Performed By: #### 2 4344-4 ####[facility]ORYCLIA [id number] [address] pH adjusted to patient's actual temperature (BldV) 7.35 Normal 7.32-7.42 [facility] Comment on above: Order Comment: Speci men Type: VENOUS BLOOD SPECIMEN Performed By: #### 2 4344-4 ####[facility]ATORYCLIA [id number] [address] Potassium [Moles/Vol] 3.6 mmol/L Normal 3.5-5.0 [facility] Comment on above: Order Comment: Speci men Type: VENOUS BLOOD SPECIMEN Performed By: #### 2 4344-4 ####[facility]ORYCLIA [id number] [address] SET VENTILATOR RESPIRATORY RATE (BPM) 18 BPM Normal [facility] Comment on above: Order Comment: Speci men Type: VENOUS BLOOD SPECIMEN Performed By: #### 2 4344-4 ####[facility]ORYCLIA [id number] [address] Sodium [Moles/Vol] 141 mmol/L Normal 136-144 [facility] Comment on above: Order Comment: Speci men Type: VENOUS BLOOD SPECIMEN Performed By: #### 2 4344-4 ####[facility]ORYCLIA [id number] [address] HIV 1+2 Ab IA Qlon 2 HIV 1 and 2 Ab IA.rapid Nom Normal [facility] Comment on above: Order Comment: Speci men Type: BLOOD SPECIMEN Result Comment: Test not indicated. Performed By: #### 3 1201-7, TOXMG ####[facility]ORATORYCLIA [id number] [address] HIV 1+2 Ab+HIV1 p24 Ag IA Ql Non-Reactive Normal Nonreactive [facility] Comment on above: Order Comment: Speci men Type: BLOOD SPECIMEN Result Comment: [place] Rev. Code 3701.243(E): This information has been [...] 3 1201-7, TOXMG ####[facility] LABORATORYCLIA [id number] [address] HIVINT Normal [facility] Comment on above: Order Comment: Speci men Type: BLOOD SPECIMEN Result Comment: No e vidence of HIV-1 or HIV-2 infection. Should recent infection be suspected, repeat testing may be considered 2-3 weeks after this draw. Performed By: #### 3 1201-7, TOXMG ####[facility] LABORATORYCLIA [id number] [address] [place] Magnesium SerPl-ncon 06-03 Magnesium [Mass/Vol] 1.9 mg/dL Normal 1.7-2.3 [facility] Comment on above: Order Comment: Speci men Type: BLOOD SPECIMEN Performed By: #### 1 9123-9, 2777-1, 64656-5 ####[facility]ORATORYCLIA [id number] [address] OF [facility] NUTRITIONon 06-03-2021 NUTRITION Normal [facility] Phosphate SerPl-mCncon 06-03 Phosphate [Mass/Vol] 1.9 mg/dL Low 2.7-4.8 [facility] Comment on above: Order Comment: Speci men Type: BLOOD SPECIMEN Performed By: #### 1 9123-9, 2777-1, 40737-8 ####[facility]ORATORYCLIA [id number] [address] TOXOPLASMOSIS IGM AND IGG AB on 06-03-2021 TOXO IGG QUAL Negative Normal Negative [facility] Comment on above: Order Comment: Speci men Type: BLOOD SPECIMEN Result Comment: No s erological evidence of past exposure to Toxoplasma gondii. Cannot exclude recent infection if the specimen collected within 3-4 weeks after infection.Negative <6.4 IU/mLEquivocal 6.4-9.9 IU/mLPositive >=10.0 IU/mL Performed By: #### 3 1201-7, TOXMG ####[facility]ORATORYCLIA [id number] [address] TOXO IGM QUAL Negative Normal Negative [facility] Comment on above: Order Comment: Speci men Type: BLOOD SPECIMEN Result Comment: No s erological evidence of recent exposure to Toxoplasma gondii.Negative <0.9 IndexEquivocal 0.9-0.99 IndexPositive >=1.0 Index Performed By: #### 3 1201-7, TOXMG ####[facility] LABORATORYCLIA [id number] [address] STATES [place] US DVT LOWER BILon US DVT LOWER RAINER Normal [facility] XR CHEST 1V FRONTALon 2021 XR CHEST 1V FRONTAL Normal [facility] ARTERIAL BLOOD GASESon 06-02 Base excess Calc (Bld) [Moles/Vol] 2 mmol/L Normal 0-2 [facility] Comment on above: Order Comment: Speci men Type: ARTERIAL BLOOD SPECIMEN Performed By: #### A LLBG ####[facility]ORATORYCLIA [id number] [address] Body temperature 99.32 [degF] Normal [facility] Comment on above: Order Comment: Speci men Type: ARTERIAL BLOOD SPECIMEN Performed By: #### A LLBG ####[facility]ORYCLIA [id number] [address] CALCIUM IONIZED, PH CORRECTED 1.15 mmol/L Normal 1.08-1.30 [facility] Comment on above: Order Comment: Speci men Type: ARTERIAL BLOOD SPECIMEN Performed By: #### A LLBG ####[facility]ORYCLIA [id number] [address] Calcium.ionized (BldV) [Mass/Vol] 1.13 mmol/L Normal 1.08-1.30 [facility] Comment on above: Order Comment: Speci men Type: ARTERIAL BLOOD SPECIMEN Performed By: #### A LLBG ####[facility]ORATORYCLIA [id number] [address] Carboxyhemoglobin (BldA) [Mass fraction] 1.4 % Normal 0.0-2.0 [facility] Comment on above: Order Comment: Speci men Type: ARTERIAL BLOOD SPECIMEN Result Comment: Carb oxyhemoglobin Reference Range for Smokers: 2.0-8.0% Performed By: #### A LLBG ####[facility]ORATORYCLIA [id number] [address] CO2 (Bld) [Partial pressure] 39 mm Hg Normal 36-46 [facility] Comment on above: Order Comment: Speci men Type: ARTERIAL BLOOD SPECIMEN Performed By: #### A LLBG ####[facility]ORYCLIA [id number] [address] CO2 [Moles/Vol] 23.4 mmol/L Normal 22-28 [facility] Comment on above: Order Comment: Speci men Type: ARTERIAL BLOOD SPECIMEN Performed By: #### A LLBG ####[facility]ORYCLIA [id number] [address] CO2 adjusted to patient's actual temperature (Bld) [Partial pressure] 40 mmHg Normal 36-46 [facility] Comment on above: Order Comment: Speci men Type: ARTERIAL BLOOD SPECIMEN Performed By: #### A LLBG ####[facility]ORYCLIA [id number] [address] OF [facility] Glucose [Mass/Vol] 156 mg/dL High 60-105 [facility] Comment on above: Order Comment: Speci men Type: ARTERIAL BLOOD SPECIMEN Performed By: #### A LLBG ####[facility]ORYCLIA [id number] [address] OF [facility] HCO3 (Bld) [Moles/Vol] 26 mmol/L Normal 22-26 [facility] Comment on above: Order Comment: Speci men Type: ARTERIAL BLOOD SPECIMEN Performed By: #### A LLBG ####[facility]ORYCLIA [id number] [address] OF [facility] Hematocrit (Bld) [Volume fraction] 33.9 % Low 39.0-51.0 [facility] Comment on above: Order Comment: Speci men Type: ARTERIAL BLOOD SPECIMEN Performed By: #### A LLBG ####[facility]ORYCLIA [id number] [address] OF [facility] Hemoglobin (Bld) [Mass/Vol] 11.0 g/dL Low 13.0-17.0 [facility] Comment on above: Order Comment: Speci men Type: ARTERIAL BLOOD SPECIMEN Performed By: #### A LLBG ####[facility]ORYCLIA [id number] [address] Methemoglobin (Bld) [Mass fraction] % Normal 0.0-1.5 [facility] Comment on above: Order Comment: Speci men Type: ARTERIAL BLOOD SPECIMEN Performed By: #### A LLBG ####[facility]ORYCLIA [id number] [address] O2 THERAPY Ventilator Normal [facility] Comment on above: Order Comment: Speci men Type: ARTERIAL BLOOD SPECIMEN Performed By: #### A LLBG ####[facility]ORYCLIA [id number] [address] Oxygen (Bld) [Partial pressure] 70 mm Hg Low 85-95 [facility] Comment on above: Order Comment: Speci men Type: ARTERIAL BLOOD SPECIMEN Performed By: #### A LLBG ####[facility]ORYCLIA [id number] [address] Oxygen adjusted to patient's actual temperature (Bld) [Partial pressure] 72.2 mmHg Low 85-95 [facility] Comment on above: Order Comment: Speci men Type: ARTERIAL BLOOD SPECIMEN Performed By: #### A LLBG ####[facility]ORYCLIA [id number] [address] OXYGEN SATURATION, ARTERIAL 96 % Normal 95-98 [facility] Comment on above: Order Comment: Speci men Type: ARTERIAL BLOOD SPECIMEN Performed By: #### A LLBG ####[facility]ORYCLIA [id number] [address] Oxyhemoglobin (BldA) [Mass fraction] 94 % Low 95-98 [facility] Comment on above: Order Comment: Speci men Type: ARTERIAL BLOOD SPECIMEN Performed By: #### A LLBG ####[facility]ORYCLIA [id number] [address] OF [facility] pH (Bld) 7.43 [pH] Normal 7.35-7.45 [facility] Comment on above: Order Comment: Speci men Type: ARTERIAL BLOOD SPECIMEN Performed By: #### A LLBG ####[facility]ORYCLIA [id number] [address] pH adjusted to patient's actual temperature (Bld) 7.42 Normal 7.35-7.45 [facility] Comment on above: Order Comment: Speci men Type: ARTERIAL BLOOD SPECIMEN Performed By: #### A LLBG ####[facility]ORYCLIA [id number] [address] Potassium [Moles/Vol] 2.6 mmol/L Low 3.5-5.0 [facility] Comment on above: Order Comment: Speci men Type: ARTERIAL BLOOD SPECIMEN Performed By: #### A LLBG ####[facility]ORATORYCLIA [id number] [address] Sodium [Moles/Vol] 142 mmol/L Normal 136-144 [facility] Comment on above: Order Comment: Speci men Type: ARTERIAL BLOOD SPECIMEN Performed By: #### A LLBG ####[facility]ORATORYCLIA [id number] [address] Ammonia Plas-sCncon 06-02-19 22 Ammonia (P) [Moles/Vol] 20 umol/L Normal 16-60 [facility] Comment on above: Order Comment: Speci men Type: BLOOD SPECIMEN Performed By: #### 1 6362-6 ####[facility]ORATORYCLIA [id number] [address] Bacteria CSF Culton 06-02-19 22 Bacteria identified Cx Nom (CSF) CULTURE, CSF: No growth 14 days GRAM STAIN: No organisms seen Rare Polymorphonuclear leukocytes Gram stain performed on cytospun specimen. Normal [facility] Comment on above: Performed By: #### 6 06-4 ####[facility]ORATORYCLIA [id number] [address] Basic metabolic 2000 panelon 06-02-2021 Anion gap [Moles/Vol] 10 mmol/L Normal 9-18 [facility] Comment on above: Order Comment: Speci men Type: BLOOD SPECIMEN Performed By: #### 2 4321-2, , 2776-05 ####[facility]ORATORYCLIA [id number] [address] STATES [facility] Calcium [Mass/Vol] 8.1 mg/dL Low 8.5-10.2 [facility] Comment on above: Order Comment: Speci men Type: BLOOD SPECIMEN Performed By: #### 2 4321-2, , 2776-05 ####[facility]ORATORYCLIA [id number] [address] Chloride [Moles/Vol] 108 mmol/L High 97-105 [facility] Comment on above: Order Comment: Speci men Type: BLOOD SPECIMEN Performed By: #### 2 4321-2, , 2776-05 ####[facility]ORATORYCLIA [id number] [place] [address] [place] CO2 [Moles/Vol] 24 mmol/L Normal 22-30 [facility] Comment on above: Order Comment: Speci men Type: BLOOD SPECIMEN Performed By: #### 2 1-2, , 2776-05 ####[facility]ATORYCLIA [id number] [address] [place] Creatinine [Mass/Vol] 0.78 mg/dL Normal 0.73-1.22 [facility] Comment on above: Order Comment: Speci men Type: BLOOD SPECIMEN Performed By: #### 2 4321-2, , 2776-05 ####[facility]ORATORYCLIA [id number] [address] [place] GFR/1.73 sq M.predicted MDRD (S/P/Bld) [Vol rate/Area] mL/min/{1.73_m2} Normal [facility] Comment on above: Order [...] 4321-2, , 2776-05 ####[facility]ATORYCLIA [id number] [address] [place] Glucose [Mass/Vol] 162 mg/dL High 74-99 [facility] Comment on above: Order Comment: Speci men Type: BLOOD SPECIMEN Result Comment: The [place] Diabetes Association (ADA) provides guidance for cutoff [...] Standards of Medical Care in Diabetes 2016, [place] [employer]. Diabetes Care. 2016.39(Suppl 1). Performed By: #### 2 1-2, , 2776-05 ####[facility]ORATORYCLIA [id number] [address] STATES OF [facility] Potassium [Moles/Vol] 2.7 mmol/L Low 3.7-5.1 [facility] Comment on above: Order Comment: Speci men Type: BLOOD SPECIMEN Performed By: #### 2 1-2, , 2776-05 ####[facility]ATORYCLIA [id number] [address] STATES [facility] Sodium [Moles/Vol] 142 mmol/L Normal 136-144 [facility] Comment on above: Order Comment: Speci men Type: BLOOD SPECIMEN Performed By: #### 2 1-2, , 2776-05 ####[facility]ATORYCLIA [id number] [address] [place] Urea nitrogen [Mass/Vol] 12 mg/dL Normal 9-24 [facility] Comment on above: Order Comment: Speci men Type: BLOOD SPECIMEN Performed By: #### 2 1-2, , 2776-05 ####[facility]ORATORYCLIA [id number] [address] OF [facility] CBC panel Auto (Bld)on 06-02 Erythrocyte distribution width (RBC) [Ratio] 15.0 % Normal 11.5-15.0 [facility] Comment on above: Order Comment: Speci men Type: BLOOD SPECIMEN Performed By: #### 5 8410-2 ####[facility]ATORYCLIA [id number] [address] Hematocrit (Bld) [Volume fraction] 34.3 % Low 39.0-51.0 [facility] Comment on above: Order Comment: Speci men Type: BLOOD SPECIMEN Performed By: #### 5 8410-2 ####[facility]ATORYCLIA [id number] [address] Hemoglobin (Bld) [Mass/Vol] 10.3 g/dL Low 13.0-17.0 [facility] Comment on above: Order Comment: Speci men Type: BLOOD SPECIMEN Performed By: #### 5 8410-2 ####[facility]ORATORYCLIA [id number] [address] MCH (RBC) [Entitic mass] 27.0 pg Normal 26.0-34.0 [facility] Comment on above: Order Comment: Speci men Type: BLOOD SPECIMEN Performed By: #### 5 8410-2 ####[facility]ATORYCLIA [id number] [address] MCHC (RBC) [Mass/Vol] 30.0 g/dL Low 30.5-36.0 [facility] Comment on above: Order Comment: Speci men Type: BLOOD SPECIMEN Performed By: #### 5 8410-2 ####[facility]ATORYCLIA [id number] [address] MCV (RBC) [Entitic vol] 90.0 fL Normal 80.0-100.0 [facility] Comment on above: Order Comment: Speci men Type: BLOOD SPECIMEN Performed By: #### 5 8410-2 ####[facility]ATORYCLIA [id number] [address] Nucleated RBC (Bld) [#/Vol] 10*3/uL Normal <0.01 [facility] Comment on above: Order Comment: Speci men Type: BLOOD SPECIMEN Performed By: #### 5 8410-2 ####[facility]ATORYCLIA [id number] [address] Platelet mean volume (Bld) [Entitic vol] 10.2 fL Normal 9.0-12.7 [facility] Comment on above: Order Comment: Speci men Type: BLOOD SPECIMEN Performed By: #### 5 8410-2 ####[facility]ATORYCLIA [id number] [address] Platelets (Bld) [#/Vol] 194 10*3/uL Normal 150-400 [facility] Comment on above: Order Comment: Speci men Type: BLOOD SPECIMEN Performed By: #### 5 8410-2 ####[facility]ATORYCLIA [id number] [address] RBC (Bld) [#/Vol] 3.81 10*6/uL Low 4.20-6.00 [facility] Comment on above: Order Comment: Speci men Type: BLOOD SPECIMEN Performed By: #### 5 8410-2 ####[facility]ATORYCLIA [id number] [address] WBC (Bld) [#/Vol] 9.22 10*3/uL Normal 3.70-11.00 [facility] Comment on above: Order Comment: Speci men Type: BLOOD SPECIMEN Performed By: #### 5 8410-2 ####[facility]ATORYCLIA [id number] [address] CONSULT PROGon 06-02-2021 CONSULT PROG Normal [facility] CSF MANUAL DIFFon 06-02-2021 DIF TTL, CSF 25 cells counted Normal [facility] Comment on above: Order Comment: Speci men Type: CEREBROSPINAL FLUID Performed By: #### 3 4563-7, [id number], [id number] ####[facility]ORYCLIA [id number] [place], [place] [address] [place] [address] [place] LYMPH%, CSF 4 % Low 50-90 [facility] Comment on above: Order Comment: Speci men Type: CEREBROSPINAL FLUID Performed By: #### 3 4563-7, [id number], [id number] ####[facility]ORYCLIA [id number] [address] [place] MACRO%, CSF 4 % High <1 [facility] Comment on above: Order Comment: Speci men Type: CEREBROSPINAL FLUID Performed By: #### 3 4563-7, [id number], [id number] ####[facility]ORYCLIA [id number] [address] [place] MONO%, CSF 20 % Normal 10-50 [facility] Comment on above: Order Comment: Speci men Type: CEREBROSPINAL FLUID Performed By: #### 3 4563-7, [id number], [id number] ####[facility]ORYCLIA [id number] [address] OF [place] NEUT%, CSF 72 % High 0-3 [facility] Comment on above: Order Comment: Speci men Type: CEREBROSPINAL FLUID Performed By: #### 3 4563-7, [id number], [id number] ####[facility]ORYCLIA [id number] [address] CSF PATHOLOGIST INTERP (LAB REFLEX ORDER-NO BILL)on 06-02-2021 CSF STAFF REVIEW Negative [facility] Comment on above: Order Comment: Speci men Type: CEREBROSPINAL FLUID Performed By: #### 3 4563-7, [id number], [id number] ####[facility]ORYCLIA [id number] [address] Pathologist name Reviewed by Amador Stevens MD [facility] Comment on above: Order Comment: Speci men Type: CEREBROSPINAL FLUID Performed By: #### 3 4563-7, [id number], [id number] ####[facility]ORYCLIA [id number] [address] Cell count panel (CSF)on Clarity (CSF) Clear Normal Clear [facility] Comment on above: Order Comment: Speci men Type: CEREBROSPINAL FLUID Performed By: #### 3 4563-7, [id number], [id number] ####[facility]ATORYCLIA [id number] [place], [place] [id number] [place] [address] Clarity (Unsp spec) Not Indicated Normal Clear [facility] Comment on above: Order Comment: Speci men Type: CEREBROSPINAL FLUID Performed By: #### 3 4563-7, [id number], [id number] ####[facility]ATORYCLIA [id number] [address] Color (CSF) Colorless Normal Colorless [facility] Comment on above: Order Comment: Speci men Type: CEREBROSPINAL FLUID Performed By: #### 3 4563-7, [id number], [id number] ####[facility]ATORYCLIA [id number] [address] Color (Spun CSF) Not Indicated Normal Colorless [facility] Comment on above: Order Comment: Speci men Type: CEREBROSPINAL FLUID Performed By: #### 3 4563-7, [id number], [id number] ####[facility]ATORYCLIA [id number] [address] CSF TUBE NUMBER Ster[employer] Container Normal [facility] Comment on above: Order Comment: Speci men Type: CEREBROSPINAL FLUID Performed By: #### 3 4563-7, [id number], [id number] ####[facility]ATORYCLIA [id number] [address] RBC Manual cnt (CSF) [#/Vol] 117 cells/uL High 0-5 [facility] Comment on above: Order Comment: Speci men Type: CEREBROSPINAL FLUID Performed By: #### 3 4563-7, [id number], [id number] ####[facility]ORYCLIA [id number] [address] [place] WBC Manual cnt (CSF) [#/Vol] 1 cells/uL Normal 0-5 [facility] Comment on above: Order Comment: Speci men Type: CEREBROSPINAL FLUID Performed By: #### 3 4563-7, [id number], [id number] ####[facility]ATORYCLIA [id number] [address] [place] Glucose CSF-mCncon 2 Glucose (CSF) [Mass/Vol] 82 mg/dL High 40-70 [facility] Comment on above: Order Comment: Speci men Type: CEREBROSPINAL FLUID Result Comment: Lumb ar CSF glucose values of healthy patients are approximately 60% of the plasma values and must always be compared with a concurrently measured plasma value for adequate clinical interpretation.References: 1. Glucose HK (GLUC3) [package insert V 12.0 [place]]. [employer], [place], [place]. September 2015. 2. Michelle Moore, Loki H. (2015). Chapter 7: Glucose and Lactate. Marianela Alcocer al.(eds.), Cerebrospinal Fluid in Clinical Neurology. [place]: Outcome [employer]. Performed By: #### 2 342-4 ####[facility]ORATORYCLIA [id number] [address] HEPATIC FUNCTION PNLon 06-02 Albumin [Mass/Vol] 3.2 g/dL Low 3.9-4.9 [facility] Comment on above: Order Comment: Speci men Type: BLOOD SPECIMEN Performed By: #### H FP, 68047-9 ####[facility]ATORYCLIA [id number] [address] ALP [Catalytic activity/Vol] 67 U/L Normal 38-113 [facility] Comment on above: Order Comment: Speci men Type: BLOOD SPECIMEN Performed By: #### H FP, 68456-9 ####[facility]ATORYCLIA [id number] [address] OF [facility] ALT With P-5'-P [Catalytic activity/Vol] 16 U/L Normal 10-54 [facility] Comment on above: Order Comment: Speci men Type: BLOOD SPECIMEN Performed By: #### [place], [address]-6 ####[facility]ORYCLIA [id number] [address] AST With P-5'-P [Catalytic activity/Vol] 25 U/L Normal 14-40 [facility] Comment on above: Order Comment: Speci men Type: BLOOD SPECIMEN Performed By: #### [place], [address]-7 ####[facility]ORYCLIA [id number] [address] Bilirubin [Mass/Vol] 0.2 mg/dL Normal 0.2-1.3 [facility] Comment on above: Order Comment: Speci men Type: BLOOD SPECIMEN Performed By: #### [place] KATHIE, 13307-2 ####[facility]ORYCLIA [id number] [address] Bilirubin.conjugated [Mass/Vol] mg/dL Normal <0.2 [facility] Comment on above: Order Comment: Speci men Type: BLOOD SPECIMEN Performed By: #### [place] KATHIE, 98538-3 ####[facility]ORYCLIA [id number] [address] Protein [Mass/Vol] 5.8 g/dL Low 6.3-8.0 [facility] [facility] Comment on above: Order Comment: Speci men Type: BLOOD SPECIMEN Performed By: #### [place] KATHIE, 14740-7 ####[facility]ATORYCLIA [id number] [address] MRI BRAIN WO/W IVCONon 06-02 MRI BRAIN WO/W IVCON Normal [facility] Magnesium SerPl-mCncon 06-02 Magnesium [Mass/Vol] 2.0 mg/dL Normal 1.7-2.3 [facility] Comment on above: Order Comment: Speci men Type: BLOOD SPECIMEN Performed By: #### 2 4321-2, 28868-3, 2777-1 ####[facility]ORYCLIA [id number] [address] NT-proBNP SerPl-mCncon 06-02 Natriuretic peptide.B prohormone N-Terminal [Mass/Vol] 296 pg/mL High <125 [facility] Comment on above: Order Comment: Speci men Type: BLOOD SPECIMEN Performed By: #### [place], [address]-2 ####[facility]ORATORYCLIA [id number] [address] POTASSIUM BLDon 06-02-2021 Potassium [Moles/Vol] 3.2 mmol/L Low 3.7-5.1 [facility] Comment on above: Order Comment: Speci men Type: BLOOD SPECIMEN Performed By: #### K 1 ####[facility]ORATORYCLIA [id number] [address] Phosphate SerPl-ncon 06-02 Phosphate [Mass/Vol] 2.1 mg/dL Low 2.7-4.8 [facility] Comment on above: Order Comment: Speci men Type: BLOOD SPECIMEN Performed By: #### 2 4321-2, 36075-8, 2777-1 ####[facility]ORATORYCLIA [id number] [address] Vancomycin random [Mass/Vol] on 06-02-2021 Vancomycin [Mass/Vol] 18.8 ug/mL Normal 10.0-20.0 [facility] Comment on above: Order Comment: Speci men Type: BLOOD SPECIMEN Result Comment: Refe rence ranges and high/low indicator flags are provided as general guidelines only. The treating physician must determine appropriate target levels/dosing based on the specific clinical situation. Performed By: #### 4 091-5 ####[facility]ORATORYCLIA [id number] [place] ALLIED HEALTHon 06-01-2021 ALLIED HEALTH Normal [facility] ALLIED HEALTH Normal [facility] ALLIED HEALTH Normal [facility] ARTERIAL BLOOD GASESon 06-01 Base excess Calc (Bld) [Moles/Vol] 1 mmol/L Normal 0-2 [facility] Comment on above: Order Comment: Speci men Type: ARTERIAL BLOOD SPECIMEN Performed By: #### A LLBG ####[facility]ORATORYCLIA [id number] [address] Body temperature 97.52 [degF] Normal [facility] Comment on above: Order Comment: Speci men Type: ARTERIAL BLOOD SPECIMEN Performed By: #### A LLBG ####[facility]ORYCLIA [id number] [address] CALCIUM IONIZED, PH CORRECTED 1.13 mmol/L Normal 1.08-1.30 [facility] Comment on above: Order Comment: Speci men Type: ARTERIAL BLOOD SPECIMEN Performed By: #### A LLBG ####[facility]ATORYCLIA [id number] [address] Calcium.ionized (BldV) [Mass/Vol] 1.12 mmol/L Normal 1.08-1.30 [facility] Comment on above: Order Comment: Speci men Type: ARTERIAL BLOOD SPECIMEN Performed By: #### A LLBG ####[facility]ATORYCLIA [id number] [address] Carboxyhemoglobin (BldA) [Mass fraction] 1.6 % Normal 0.0-2.0 [facility] Comment on above: Order Comment: Speci men Type: ARTERIAL BLOOD SPECIMEN Result Comment: Carb oxyhemoglobin Reference Range for Smokers: 2.0-8.0% Performed By: #### A LLBG ####[facility]ORYCLIA [id number] [address] CO2 (Bld) [Partial pressure] 41 mm Hg Normal 36-46 [facility] Comment on above: Order Comment: Speci men Type: ARTERIAL BLOOD SPECIMEN Performed By: #### A LLBG ####[facility]ORYCLIA [id number] [address] CO2 [Moles/Vol] 23.0 mmol/L Normal 22-28 [facility] Comment on above: Order Comment: Speci men Type: ARTERIAL BLOOD SPECIMEN Performed By: #### A LLBG ####[facility]ORYCLIA [id number] [address] CO2 adjusted to patient's actual temperature (Bld) [Partial pressure] 40 mmHg Normal 36-46 [facility] Comment on above: Order Comment: Speci men Type: ARTERIAL BLOOD SPECIMEN Performed By: #### A LLBG ####[facility]ORYCLIA [id number] [address] FIO2 40 % Normal [facility] Comment on above: Order Comment: Speci men Type: ARTERIAL BLOOD SPECIMEN Performed By: #### A LLBG ####[facility]ORYCLIA [id number] [address] Glucose [Mass/Vol] 127 mg/dL High 60-105 [facility] Comment on above: Order Comment: Speci men Type: ARTERIAL BLOOD SPECIMEN Performed By: #### A LLBG ####[facility]ORYCLIA [id number] [address] HCO3 (Bld) [Moles/Vol] 25 mmol/L Normal 22-26 [facility] Comment on above: Order Comment: Speci men Type: ARTERIAL BLOOD SPECIMEN Performed By: #### A LLBG ####[facility]ORYCLIA [id number] [address] Hematocrit (Bld) [Volume fraction] 33.7 % Low 39.0-51.0 [facility] Comment on above: Order Comment: Speci men Type: ARTERIAL BLOOD SPECIMEN Performed By: #### A LLBG ####[facility]ORYCLIA [id number] [address] Hemoglobin (Bld) [Mass/Vol] 10.9 g/dL Low 13.0-17.0 [facility] Comment on above: Order Comment: Speci men Type: ARTERIAL BLOOD SPECIMEN Performed By: #### A LLBG ####[facility]ORYCLIA [id number] [address] [place] INHALED TIDAL VOLUME (ML) 500 Normal [facility] Comment on above: Order Comment: Speci men Type: ARTERIAL BLOOD SPECIMEN Performed By: #### A LLBG ####[facility]ORYCLIA [id number] [address] INVASIVE VENTILATOR MODE PRVC=Pressure Regulated Volume Control Normal [facility] Comment on above: Order Comment: Speci men Type: ARTERIAL BLOOD SPECIMEN Performed By: #### A LLBG ####[facility]ORYCLIA [id number] [address] Methemoglobin (Bld) [Mass fraction] % Normal 0.0-1.5 [facility] Comment on above: Order Comment: Speci men Type: ARTERIAL BLOOD SPECIMEN Performed By: #### A LLBG ####[facility]ORYCLIA [id number] [address] O2 THERAPY Ventilator Normal [facility] Comment on above: Order Comment: Speci men Type: ARTERIAL BLOOD SPECIMEN Performed By: #### A LLBG ####[facility]ORYCLIA [id number] [address] [place] Oxygen (Bld) [Partial pressure] 64 mm Hg Low 85-95 [facility] Comment on above: Order Comment: Speci men Type: ARTERIAL BLOOD SPECIMEN Performed By: #### A LLBG ####[facility]ORYCLIA [id number] [address] [place] Oxygen adjusted to patient's actual temperature (Bld) [Partial pressure] 61.8 mmHg Low 85-95 [facility] Comment on above: Order Comment: Speci men Type: ARTERIAL BLOOD SPECIMEN Performed By: #### A LLBG ####[facility]ORYCLIA [id number] [address] [place] OXYGEN SATURATION, ARTERIAL 94 % Low 95-98 [facility] Comment on above: Order Comment: Speci men Type: ARTERIAL BLOOD SPECIMEN Performed By: #### A LLBG ####[facility]ORYCLIA [id number] [address] Oxyhemoglobin (BldA) [Mass fraction] 92 % Low 95-98 [facility] Comment on above: Order Comment: Speci men Type: ARTERIAL BLOOD SPECIMEN Performed By: #### A LLBG ####[facility]ORYCLIA [id number] [address] PEEP/CPAP 5 cmH2O Normal [facility] Comment on above: Order Comment: Speci men Type: ARTERIAL BLOOD SPECIMEN Performed By: #### A LLBG ####[facility]ORYCLIA [id number] [address] pH (Bld) 7.40 [pH] Normal 7.35-7.45 [facility] Comment on above: Order Comment: Speci men Type: ARTERIAL BLOOD SPECIMEN Performed By: #### A LLBG ####[facility]ORYCLIA [id number] [address] pH adjusted to patient's actual temperature (Bld) 7.41 Normal 7.35-7.45 [facility] Comment on above: Order Comment: Speci men Type: ARTERIAL BLOOD SPECIMEN Performed By: #### A LLBG ####[facility]ORYCLIA [id number] [address] Potassium [Moles/Vol] 3.1 mmol/L Low 3.5-5.0 [facility] Comment on above: Order Comment: Speci men Type: ARTERIAL BLOOD SPECIMEN Performed By: #### A LLBG ####[facility]ORYCLIA [id number] [address] SET VENTILATOR RESPIRATORY RATE (BPM) 18 BPM Normal [facility] Comment on above: Order Comment: Speci men Type: ARTERIAL BLOOD SPECIMEN Performed By: #### A LLBG ####[facility]ORYCLIA [id number] [address] Sodium [Moles/Vol] 141 mmol/L Normal 136-144 [facility] Comment on above: Order Comment: Speci men Type: ARTERIAL BLOOD SPECIMEN Performed By: #### A LLBG ####[facility]ORYCLIA [id number] [address] BASE DEFICIT, ARTERIAL -1.0 mmol/L Normal -2-0 [facility] Comment on above: Order Comment: Speci men Type: ARTERIAL BLOOD SPECIMEN Performed By: #### A LLBG ####[facility]ORYCLIA [id number] [address] Body temperature 98.24 [degF] Normal [facility] Comment on above: Order Comment: Speci men Type: ARTERIAL BLOOD SPECIMEN Performed By: #### A LLBG ####[facility]ATORYCLIA [id number] [address] CALCIUM IONIZED, PH CORRECTED 1.08 mmol/L Normal 1.08-1.30 [facility] Comment on above: Order Comment: Speci men Type: ARTERIAL BLOOD SPECIMEN Performed By: #### A LLBG ####[facility]ATORYCLIA [id number] [address] Calcium.ionized (BldV) [Mass/Vol] 1.15 mmol/L Normal 1.08-1.30 [facility] Comment on above: Order Comment: Speci men Type: ARTERIAL BLOOD SPECIMEN Performed By: #### A LLBG ####[facility]ORYCLIA [id number] [address] Carboxyhemoglobin (BldA) [Mass fraction] 1.4 % Normal 0.0-2.0 [facility] Comment on above: Order Comment: Speci men Type: ARTERIAL BLOOD SPECIMEN Result Comment: Carb oxyhemoglobin Reference Range for Smokers: 2.0-8.0% Performed By: #### A LLBG ####[facility]ORYCLIA [id number] [address] CO2 (Bld) [Partial pressure] 59 mm Hg High 36-46 [facility] Comment on above: Order Comment: Speci men Type: ARTERIAL BLOOD SPECIMEN Performed By: #### A LLBG ####[facility]ORYCLIA [id number] [address] CO2 [Moles/Vol] 24.5 mmol/L Normal 22-28 [facility] Comment on above: Order Comment: Speci men Type: ARTERIAL BLOOD SPECIMEN Performed By: #### A LLBG ####[facility]ORYCLIA [id number] [address] CO2 adjusted to patient's actual temperature (Bld) [Partial pressure] 58 mmHg High 36-46 [facility] Comment on above: Order Comment: Speci men Type: ARTERIAL BLOOD SPECIMEN Performed By: #### A LLBG ####[facility]ORYCLIA [id number] [address] FIO2 40 % Normal [facility] Comment on above: Order Comment: Speci men Type: ARTERIAL BLOOD SPECIMEN Performed By: #### A LLBG ####[facility]ORYCLIA [id number] [address] Glucose [Mass/Vol] 128 mg/dL High 60-105 [facility] Comment on above: Order Comment: Speci men Type: ARTERIAL BLOOD SPECIMEN Performed By: #### A LLBG ####[facility]ORYCLIA [id number] [address] [place] HCO3 (Bld) [Moles/Vol] 26 mmol/L Normal 22-26 [facility] Comment on above: Order Comment: Speci men Type: ARTERIAL BLOOD SPECIMEN Performed By: #### A LLBG ####[facility]ORYCLIA [id number] [address] Hematocrit (Bld) [Volume fraction] 35.6 % Low 39.0-51.0 [facility] Comment on above: Order Comment: Speci men Type: ARTERIAL BLOOD SPECIMEN Performed By: #### A LLBG ####[facility]ORYCLIA [id number] [address] [place] Hemoglobin (Bld) [Mass/Vol] 11.5 g/dL Low 13.0-17.0 [facility] Comment on above: Order Comment: Speci men Type: ARTERIAL BLOOD SPECIMEN Performed By: #### A LLBG ####[facility]ORYCLIA [id number] [address] INHALED TIDAL VOLUME (ML) 500 Normal [facility] Comment on above: Order Comment: Speci men Type: ARTERIAL BLOOD SPECIMEN Performed By: #### A LLBG ####[facility]ORYCLIA [id number] [address] INVASIVE VENTILATOR MODE PRVC=Pressure Regulated Volume Control [facility] Comment on above: Order Comment: Speci men Type: ARTERIAL BLOOD SPECIMEN Performed By: #### A LLBG ####[facility]ORYCLIA [id number] [address] Methemoglobin (Bld) [Mass fraction] % Normal 0.0-1.5 [facility] Comment on above: Order Comment: Speci men Type: ARTERIAL BLOOD SPECIMEN Performed By: #### A LLBG ####[facility]ORYCLIA [id number] [address] [place] O2 THERAPY Ventilator Normal [facility] Comment on above: Order Comment: Speci men Type: ARTERIAL BLOOD SPECIMEN Performed By: #### A LLBG ####[facility]ORYCLIA [id number] [address] [place] Oxygen (Bld) [Partial pressure] 88 mm Hg Normal 85-95 [facility] Comment on above: Order Comment: Speci men Type: ARTERIAL BLOOD SPECIMEN Performed By: #### A LLBG ####[facility]ORYCLIA [id number] [address] [place] Oxygen adjusted to patient's actual temperature (Bld) [Partial pressure] 86.5 mmHg Normal 85-95 [facility] Comment on above: Order Comment: Speci men Type: ARTERIAL BLOOD SPECIMEN Performed By: #### A LLBG ####[facility]ORYCLIA [id number] [address] OXYGEN SATURATION, ARTERIAL 95 % Normal 95-98 [facility] Comment on above: Order Comment: Speci men Type: ARTERIAL BLOOD SPECIMEN Performed By: #### A LLBG ####[facility]ORYCLIA [id number] [address] Oxyhemoglobin (BldA) [Mass fraction] 93 % Low 95-98 [facility] Comment on above: Order Comment: Speci men Type: ARTERIAL BLOOD SPECIMEN Performed By: #### A LLBG ####[facility]ORYCLIA [id number] [address] PEEP/CPAP 5 cmH2O Normal [facility] Comment on above: Order Comment: Speci men Type: ARTERIAL BLOOD SPECIMEN Performed By: #### A LLBG ####[facility]ORYCLIA [id number] [address] OF [facility] pH (Bld) 7.27 [pH] Low 7.35-7.45 [facility] Comment on above: Order Comment: Speci men Type: ARTERIAL BLOOD SPECIMEN Performed By: #### A LLBG ####[facility]ORYCLIA [id number] [address] pH adjusted to patient's actual temperature (Bld) 7.28 Low 7.35-7.45 [facility] Comment on above: Order Comment: Speci men Type: ARTERIAL BLOOD SPECIMEN Performed By: #### A LLBG ####[facility]ORYCLIA [id number] [address] Potassium [Moles/Vol] 3.3 mmol/L Low 3.5-5.0 [facility] Comment on above: Order Comment: Speci men Type: ARTERIAL BLOOD SPECIMEN Performed By: #### A LLBG ####[facility]ORYCLIA [id number] SET VENTILATOR RESPIRATORY RATE (BPM) 14 BPM Normal [facility] Comment on above: Order Comment: Speci men Type: ARTERIAL BLOOD SPECIMEN Performed By: #### A LLBG ####[facility]ORYCLIA [id number] [address] Sodium [Moles/Vol] 141 mmol/L Normal 136-144 [facility] Comment on above: Order Comment: Speci men Type: ARTERIAL BLOOD SPECIMEN Performed By: #### A LLBG ####[facility]ATORYCLIA [id number] [address] Bacteria CSF Culton 06-01-19 22 Bacteria identified Cx Nom (CSF) CULTURE, CSF: No growth 14 days GRAM STAIN: No organisms seen Rare Polymorphonuclear leukocytes Moderate Red Blood Cells Gram stain performed on cytospun specimen. Normal [facility] Comment on above: Performed By: #### 6 06-4 ####[facility]ATORYCLIA [id number] [address] Bacteria Spec Resp Culton Bacteria identified Respiratory culture Nom (Unsp spec) CULTURE, RESPIRATORY: No growth 2 days GRAM STAIN: No organisms seen No Polymorphonuclear Leukocytes Normal [facility] Comment on above: Performed By: #### 3 2355-0 ####[facility]ATORYCLIA [id number] [address] [facility] Basic metabolic 2000 panelon 06-01-2021 Anion gap [Moles/Vol] 8 mmol/L Low 9-18 [facility] Comment on above: Order Comment: Speci men Type: BLOOD SPECIMEN Performed By: #### 2 4321-2, , 2776-05 ####[facility]ATORYCLIA [id number] [address] Calcium [Mass/Vol] 7.8 mg/dL Low 8.5-10.2 [facility] Comment on above: Order Comment: Speci men Type: BLOOD SPECIMEN Performed By: #### 2 4321-2, , 2776-05 ####[facility]ATORYCLIA [id number] [place] [address] [place] Chloride [Moles/Vol] 109 mmol/L High 97-105 [facility] Comment on above: Order Comment: Speci men Type: BLOOD SPECIMEN Performed By: #### 2 4321-2, , 2776-05 ####[facility]ATORYCLIA [id number] [place] [id number] [place] CO2 [Moles/Vol] 26 mmol/L Normal 22-30 [facility] Comment on above: Order Comment: Speci men Type: BLOOD SPECIMEN Performed By: #### 2 1-2, , 2776-05 ####[facility]ORYCLIA [id number] [address] [place] Creatinine [Mass/Vol] 0.82 mg/dL Normal 0.73-1.22 [facility] Comment on above: Order Comment: Speci men Type: BLOOD SPECIMEN Performed By: #### 2 4321-2, , 2776-05 ####[facility]ATORYCLIA [id number] [place] [address] [place] GFR/1.73 sq M.predicted MDRD (S/P/Bld) [Vol rate/Area] mL/min/{1.73_m2} Normal [facility] Comment on above: Order [...] #### 2 4321-2, , 2776-05 ####[facility] [id number] [place] [address] [place] Glucose [Mass/Vol] 105 mg/dL High 74-99 [facility] Comment on above: Order Comment: Speci men Type: BLOOD SPECIMEN Result Comment: The [place] [employer] (ADA) provides guidance for cutoff [...] Standards of Medical Care in Diabetes 2016, [place] [employer]. Diabetes Care. 2016.39(Suppl 1). Performed By: #### 2 1-2, , 2776-05 ####[facility]ATORYCLIA [id number] [address] [place] Potassium [Moles/Vol] 3.8 mmol/L Normal 3.7-5.1 [facility] Comment on above: Order Comment: Speci men Type: BLOOD SPECIMEN Performed By: #### 2 4320-2, , 2776-05 ####[facility]ATORYCLIA [id number] [address] [place] Sodium [Moles/Vol] 143 mmol/L Normal 136-144 [facility] Comment on above: Order Comment: Speci men Type: BLOOD SPECIMEN Performed By: #### 2 1-2, , 2776-05 ####[facility]ATORYCLIA [id number] [address] [place] Urea nitrogen [Mass/Vol] 15 mg/dL Normal 9-24 [facility] Comment on above: Order Comment: Speci men Type: BLOOD SPECIMEN Performed By: #### 2 1-2, , 2776-05 ####[facility]ATORYCLIA [id number] [address] CBC panel Auto (Bld)on 06-01 Erythrocyte distribution width (RBC) [Ratio] 15.4 % High 11.5-15.0 [facility] Comment on above: Order Comment: Speci men Type: BLOOD SPECIMEN Performed By: #### 5 8410-2 ####[facility]ORYCLIA [id number] [address] Hematocrit (Bld) [Volume fraction] 38.4 % Low 39.0-51.0 [facility] Comment on above: Order Comment: Speci men Type: BLOOD SPECIMEN Performed By: #### 5 8410-2 ####[facility]ORYCLIA [id number] [address] Hemoglobin (Bld) [Mass/Vol] 11.1 g/dL Low 13.0-17.0 [facility] Comment on above: Order Comment: Speci men Type: BLOOD SPECIMEN Performed By: #### 5 8410-2 ####[facility]ATORYCLIA [id number] [address] MCH (RBC) [Entitic mass] 26.9 pg Normal 26.0-34.0 [facility] Comment on above: Order Comment: Speci men Type: BLOOD SPECIMEN Performed By: #### 5 8410-2 ####[facility]ATORYCLIA [id number] [address] MCHC (RBC) [Mass/Vol] 28.9 g/dL Low 30.5-36.0 [facility] Comment on above: Order Comment: Speci men Type: BLOOD SPECIMEN Performed By: #### 5 8410-2 ####[facility]ORYCLIA [id number] [address] MCV (RBC) [Entitic vol] 93.2 fL Normal 80.0-100.0 [facility] Comment on above: Order Comment: Speci men Type: BLOOD SPECIMEN Performed By: #### 5 8410-2 ####[facility]ATORYCLIA [id number] [address] Nucleated RBC (Bld) [#/Vol] 10*3/uL Normal <0.01 [facility] Comment on above: Order Comment: Speci men Type: BLOOD SPECIMEN Performed By: #### 5 8410-2 ####[facility]ORYCLIA [id number] [address] Platelet mean volume (Bld) [Entitic vol] 10.2 fL Normal 9.0-12.7 [facility] Comment on above: Order Comment: Speci men Type: BLOOD SPECIMEN Performed By: #### 5 8410-2 ####[facility]ATORYCLIA [id number] [address] Platelets (Bld) [#/Vol] 231 10*3/uL Normal 150-400 [facility] Comment on above: Order Comment: Speci men Type: BLOOD SPECIMEN Performed By: #### 5 8410-2 ####[facility]ATORYCLIA [id number] [address] RBC (Bld) [#/Vol] 4.12 10*6/uL Low 4.20-6.00 [facility] Comment on above: Order Comment: Speci men Type: BLOOD SPECIMEN Performed By: #### 5 8410-2 ####[facility]ORYCLIA [id number] [address] WBC (Bld) [#/Vol] 10.99 10*3/uL Normal 3.70-11.00 [facility] Comment on above: Order Comment: Speci men Type: BLOOD SPECIMEN Performed By: #### 5 8410-2 ####[facility]ATORYCLIA [id number] [address] CONSULT PROGon 06-01-2021 CONSULT PROG Normal [facility] CSF MANUAL DIFFon 06-01-2021 DIF TTL, CSF 100 cells counted Normal [facility] Comment on above: Order Comment: Speci men Type: CEREBROSPINAL FLUID Performed By: #### 3 4563-7, [id number] ####[facility]ORYCLIA [id number] [address] LYMPH%, CSF 11 % Low 50-90 [facility] Comment on above: Order Comment: Speci men Type: CEREBROSPINAL FLUID Performed By: #### 3 4563-7, [id number] ####[facility]ORYCLIA [id number] [address] OF [facility] MONO%, CSF 10 % Normal 10-50 [facility] Comment on above: Order Comment: Speci men Type: CEREBROSPINAL FLUID Performed By: #### 3 4563-7, [id number] ####[facility]ORYCLIA [id number] [address] NEUT%, CSF 79 % High 0-3 [facility] Comment on above: Order Comment: Speci men Type: CEREBROSPINAL FLUID Performed By: #### 3 4563-7, [id number] ####[facility]ORYCLIA [id number] [address] BRAIN WO IVCONon 06-01-19 CT BRAIN WO IVCON Normal [facility] Cell count panel (CSF)on Clarity (CSF) Clear Normal Clear [facility] Comment on above: Order Comment: Speci men Type: CEREBROSPINAL FLUID Performed By: #### 3 4563-7, [id number] ####[facility]ORYCLIA [id number] [address] Clarity (Unsp spec) Not Indicated Normal Clear [facility] Comment on above: Order Comment: Speci men Type: CEREBROSPINAL FLUID Performed By: #### 3 4563-7, [id number] ####[facility]ORYCLIA [id number] [address] Color (CSF) Colorless Normal Colorless [facility] Comment on above: Order Comment: Speci men Type: CEREBROSPINAL FLUID Performed By: #### 3 4563-7, [id number] ####[facility]ATORYCLIA [id number] [address] Color (Spun CSF) Not Indicated Normal Colorless [facility] Comment on above: Order Comment: Speci men Type: CEREBROSPINAL FLUID Performed By: #### 3 4563-7, [id number] ####[facility]ATORYCLIA [id number] [address] CSF TUBE NUMBER Sterile Container Normal [facility] Comment on above: Order Comment: Speci men Type: CEREBROSPINAL FLUID Performed By: #### 3 4563-7, [id number] ####[facility]ATORYCLIA [id number] [address] RBC Manual cnt (CSF) [#/Vol] 171 cells/uL High 0-5 [facility] Comment on above: Order Comment: Speci men Type: CEREBROSPINAL FLUID Performed By: #### 3 4563-7, [id number] ####[facility]ORATORYCLIA [id number] [address] WBC Manual cnt (CSF) [#/Vol] 5 cells/uL Normal 0-5 [facility] Comment on above: Order Comment: Speci men Type: CEREBROSPINAL FLUID Performed By: #### 3 4563-7, [id number] ####[facility] LABORATORYCLIA [id number] [address] [place] FUNGAL CULTUREon 06-01-2021 FUNGAL CULTURE CULTURE, FUNGAL: No Fungus isolated after 28 days Normal [facility] Comment on above: Performed By: #### F CUL ####[facility] LABORATORYCLIA [id number] [address] OF [facility] Glucose CSF-mCncon Glucose (CSF) [Mass/Vol] 78 mg/dL High 40-70 [facility] Comment on above: Order Comment: Speci men Type: CEREBROSPINAL FLUID Result Comment: Lumb ar CSF glucose values of healthy patients are approximately 60% of the plasma values and must always be compared with a concurrently measured plasma value for adequate clinical interpretation.References: 1. Glucose HK (GLUC3) [package insert V 12.0 [place]ian]. [employer], [place], [place]. September 2015. 2. Michelle Moore, Michelle Manjarrez (2015). Chapter 7: Glucose and Lactate. Marianela Rothman.(eds.), Cerebrospinal Fluid in Clinical Neurology. [place]: Fly Fishing Hunter. Performed By: #### 2 342-4, 2880-3 ####[facility] LABORATORYCLIA [id number] [address] [place] HERPES SIMPLEX CSFon 022 HERPES SIMPLEX CSF HSV PCR SPEC SOURCE: Cerebrospinal Fluid HSV-1: Negative for Herpes Simplex Virus Type 1 by PCR HSV-2: Negative for Herpes Simplex Virus Type 2 by PCR Normal [facility] Comment on above: Performed By: #### H [facility] ####[facility] REFERENCE LABCLIA [id number] [id number] [address] [place] Lactate (Bld) [Moles/Vol]on 06-01-2021 Lactate [Moles/Vol] 0.5 mmol/L Normal 0.5-2.2 [facility] Comment on above: Order Comment: Speci men Type: BLOOD SPECIMEN Performed By: #### 3 2693-4 ####[facility]ITAL[facility] [id number] [place] [id number] [facility] MENINGITIS ENCEPHALITIS BIOF IREon 06-01-2021 MENINGITIS ENCEPHALITIS BIOFIRE Negative Normal [facility] Comment on above: Order Comment: Speci men Type: CEREBROSPINAL FLUID Performed By: #### M GEBF ####[facility] SYSTEMIA [id number] [address] Magnesium SerPl-mCncon 06-01 Magnesium [Mass/Vol] 2.2 mg/dL Normal 1.7-2.3 [facility] Comment on above: Order Comment: Speci men Type: BLOOD SPECIMEN Performed By: #### 2 4321-2, 99810-8, 2777-1 ####[facility]ORATORYCLIA [id number] [address] [place] Microorganism Spec Culton Microorganism identified Cx Nom (Unsp spec) CULTURE, AFB: No Acid Fast Bacilli isolated after 42 days AFB STAIN: No acid fast bacilli seen by flurochrome stain Normal [facility] Comment on above: Performed By: #### 1 1475-1 ####[facility]ORATORYCLIA [id number] [address] PROCALCITONIN (LAB)on 2021 Procalcitonin [Mass/Vol] 0.08 ng/mL Normal <0.09 [facility] Comment on above: Order Comment: Speci men Type: BLOOD SPECIMEN Result Comment: For a guided interpretation of test results, please visit the [facility] in Procalcitonin Calculator, [email or web address]. Performed By: #### P ROCAL ####[facility]ORATORYCLIA [id number] [address] [place] Phosphate SerPl-ncon 06-01 Phosphate [Mass/Vol] 3.5 mg/dL Normal 2.7-4.8 [facility] Comment on above: Order Comment: Speci men Type: BLOOD SPECIMEN Performed By: #### 2 4321-2, 26896-0, 2777-1 ####[facility]ORATORYCLIA [id number] [address] [place] Prot CSF-mCncon 06-01-2021 Protein (CSF) [Mass/Vol] 52 mg/dL High 15-45 [facility] Comment on above: Order Comment: Speci men Type: CEREBROSPINAL FLUID Performed By: #### 2 342-4, 2880-3 ####[facility]ATORYCLIA [id number] [address] [place] Vancomycin random [Mass/Vol] on 06-01-2021 Vancomycin [Mass/Vol] 14.6 ug/mL Normal 10.0-20.0 [facility] Comment on above: Order Comment: Speci men Type: BLOOD SPECIMEN Result Comment: Refe rence ranges and high/low indicator flags are provided as general guidelines only. The treating physician must determine appropriate target levels/dosing based on the specific clinical situation. Performed By: #### 4 091-5 ####[facility]ORATORYCLIA [id number] [address] [place] XR CHEST 1V FRONTALon 2021 XR CHEST 1V FRONTAL Normal [facility] XR CHEST 1V FRONTAL Normal [facility] XR NECK SOFT TISSUE 2V AP/LA Ton 06-01-2021 XR NECK SOFT TISSUE 2V AP/LAT Normal [facility] XR SKULL 2V AP/LATon 022 XR SKULL 2V AP/LAT Normal [facility] ALLIED HEALTHon 05-31-2021 ALLIED HEALTH HNO ID: [id number] Author: Christina Lynne RT(R) Service: Radiology Author Type: Technologist Type: Allied Health Filed: 05/31/2021 5:48 PM Note Text: MRI tomorrow per RN. Normal [facility] ALLIED HEALTH Normal [facility] ALLIED HEALTH Normal [facility] ALLIED HEALTH Normal [facility] ANES POSTPROC EVALon 022 ANES POSTPROC EVAL Normal [facility] ANES PRE-OPon 05-31-2021 ANES PRE-OP Normal [facility] BRIEF OP NOTon 05-31-2021 BRIEF OP NOT Normal [facility] Bacteria Bld Culton 05-31-19 22 Bacteria identified Cx Nom (Bld) CULTURE, BLOOD: No growth 5 days Normal [facility] Comment on above: Performed By: #### 6 00-7 ####[facility]ORATORYCLIA [id number] [address] Bacteria CSF Culton 05-31-19 22 Bacteria identified Cx Nom (CSF) CULTURE, CSF: No growth 14 days GRAM STAIN: No organisms seen Rare Polymorphonuclear leukocytes Rare Red Blood Cells Gram stain performed on cytospun specimen. Normal [facility] Comment on above: Performed By: #### 6 06-4 ####[facility]ORATORYCLIA [id number] [place] [address] [place] Basic metabolic 2000 panelon 05-31-2021 Anion gap [Moles/Vol] 9 mmol/L Normal 9-18 [facility] Comment on above: Order Comment: Speci men Type: BLOOD SPECIMEN Performed By: #### 2 777-1, 16621-9, ####[facility]ATORYCLIA [id number] [place] [address] [place] Calcium [Mass/Vol] 8.2 mg/dL Low 8.5-10.2 [facility] Comment on above: Order Comment: Speci men Type: BLOOD SPECIMEN Performed By: #### 2 777-1, , ####[facility]ORATORYCLIA [id number] [address] [place] Chloride [Moles/Vol] 110 mmol/L High 97-105 [facility] Comment on above: Order Comment: Speci men Type: BLOOD SPECIMEN Performed By: #### 2 777-1, , ####[facility]ORATORYCLIA [id number] [address] [place] CO2 [Moles/Vol] 27 mmol/L Normal 22-30 [facility] Comment on above: Order Comment: Speci men Type: BLOOD SPECIMEN Performed By: #### 2 777-1, , ####[facility]ATORYCLIA [id number] [address] [place] Creatinine [Mass/Vol] 0.85 mg/dL Normal 0.73-1.22 [facility] Comment on above: Order Comment: Speci men Type: BLOOD SPECIMEN Performed By: #### 2 777-1, , ####[facility]ATORYCLIA [id number] [place] [address] [place] GFR/1.73 sq M.predicted MDRD (S/P/Bld) [Vol rate/Area] mL/min/{1.73_m2} Normal [facility] Comment on above: Order [...] actual GFR. Performed By: #### 2 777-1, 66415-5, ####[facility]ITALCLIA [id number] [place] [address] [place] Glucose [Mass/Vol] 111 mg/dL High 74-99 [facility] Comment on above: Order Comment: Speci men Type: BLOOD SPECIMEN Result Comment: The [place] Diabetes Association (ADA) provides guidance for cutoff [...] Standards of Medical Care in Diabetes 2016, [place] Diabetes Association. Diabetes Care. 2016.39(Suppl 1). Performed By: #### 2 777-1, 87339-6, ####[facility]ORATORYCLIA [id number] [place] [address] [place] Potassium [Moles/Vol] 3.7 mmol/L Normal 3.7-5.1 [facility] Comment on above: Order Comment: Speci [facility] Type: BLOOD SPECIMEN Performed By: #### 2 777-1, 46260-0, ####[facility]ORATORYCLIA [id number] [place], [place] [address] [place] [address] STATES [facility] Sodium [Moles/Vol] 146 mmol/L High 136-144 [facility] Comment on above: Order Comment: Speci men Type: BLOOD SPECIMEN Performed By: #### 2 777-1, 03740-5, ####[facility]ATORYCLIA [id number] [address] STATES [facility] Urea nitrogen [Mass/Vol] 16 mg/dL Normal 9- [facility] Comment on above: Order Comment: Speci men Type: BLOOD SPECIMEN Performed By: #### 2 777-1, , ####[facility]ORATORYCLIA [id number] [address] OF [facility] CASE MGT INIT ASSESon 2021 CASE MGT INIT ASSES Normal [facility] CBC W Auto Differential pane l (Bld)on 05-31-2021 Basophils (Bld) [#/Vol] 0.04 10*3/uL Normal <0.11 [facility] Comment on above: Order Comment: Speci men Type: BLOOD SPECIMEN Performed By: #### 5 7021-8 ####[facility]ORATORYCLIA [id number] [address] [place] Basophils/100 WBC (Bld) 0.5 % Normal [facility] Comment on above: Order Comment: Speci men Type: BLOOD SPECIMEN Performed By: #### 5 7021-8 ####[facility]ATORYCLIA [id number] [address] STATES [facility] Differential cell count method Nom (Bld) Auto Normal [facility] Comment on above: Order Comment: Speci men Type: BLOOD SPECIMEN Performed By: #### 5 7021-8 ####[facility]ORATORYCLIA [id number] [place] [address] [place] Eosinophils (Bld) [#/Vol] 0.27 10*3/uL Normal <0.46 [facility] Comment on above: Order Comment: Speci men Type: BLOOD SPECIMEN Performed By: #### 5 7021-8 ####[facility] LABORATORYCLIA [id number] [address] Eosinophils/100 WBC (Bld) 3.3 % Normal [facility] Comment on above: Order Comment: Speci men Type: BLOOD SPECIMEN Performed By: #### 5 7021-8 ####[facility]ORATORYCLIA [id number] [address] Erythrocyte distribution width (RBC) [Ratio] 15.4 % High 11.5-15.0 [facility] Comment on above: Order Comment: Speci men Type: BLOOD SPECIMEN Performed By: #### 5 7021-8 ####[facility] LABORATORYCLIA [id number] [address] Hematocrit (Bld) [Volume fraction] 37.9 % Low 39.0-51.0 [facility] Comment on above: Order Comment: Speci men Type: BLOOD SPECIMEN Performed By: #### 5 7021-8 ####[facility]ATORYCLIA [id number] [address] Hemoglobin (Bld) [Mass/Vol] 11.5 g/dL Low 13.0-17.0 [facility] Comment on above: Order Comment: Speci men Type: BLOOD SPECIMEN Performed By: #### 5 7021-8 ####[facility] LABORATORYCLIA [id number] [address] IMMATURE GRAN % 0.4 % Normal [facility] Comment on above: Order Comment: Speci men Type: BLOOD SPECIMEN Performed By: #### 5 7021-8 ####[facility]ATORYCLIA [id number] [address] IMMATURE GRAN ABS 0.03 k/uL Normal <0.10 [facility] Comment on above: Order Comment: Speci men Type: BLOOD SPECIMEN Performed By: #### 5 7021-8 ####[facility]ATORYCLIA [id number] [address] Lymphocytes (Bld) [#/Vol] 1.90 10*3/uL Normal 1.00-4.00 [facility] Comment on above: Order Comment: Speci men Type: BLOOD SPECIMEN Performed By: #### 5 7021-8 ####[facility]ATORYCLIA [id number] [address] Lymphocytes/100 WBC (Bld) 23.0 % Normal [facility] Comment on above: Order Comment: Speci men Type: BLOOD SPECIMEN Performed By: #### 5 7021-8 ####[facility]ATORYCLIA [id number] [address] MCH (RBC) [Entitic mass] 28.0 pg Normal 26.0-34.0 [facility] Comment on above: Order Comment: Speci men Type: BLOOD SPECIMEN Performed By: #### 5 7021-8 ####[facility]ATORYCLIA [id number] [address] MCHC (RBC) [Mass/Vol] 30.3 g/dL Low 30.5-36.0 [facility] Comment on above: Order Comment: Speci men Type: BLOOD SPECIMEN Performed By: #### 5 7021-8 ####[facility]ORATORYCLIA [id number] [address] MCV (RBC) [Entitic vol] 92.4 fL Normal 80.0-100.0 [facility] Comment on above: Order Comment: Speci men Type: BLOOD SPECIMEN Performed By: #### 5 7021-8 ####[facility]ORATORYCLIA [id number] [address] Monocytes (Bld) [#/Vol] 0.60 10*3/uL Normal <0.87 [facility] Comment on above: Order Comment: Speci men Type: BLOOD SPECIMEN Performed By: #### 5 7021-8 ####[facility]ATORYCLIA [id number] [address] Monocytes/100 WBC (Bld) 7.3 % Normal [facility] Comment on above: Order Comment: Speci men Type: BLOOD SPECIMEN Performed By: #### 5 7021-8 ####[facility]ATORYCLIA [id number] [address] Neutrophils (Bld) [#/Vol] 5.41 10*3/uL Normal 1.45-7.50 [facility] Comment on above: Order Comment: Speci men Type: BLOOD SPECIMEN Performed By: #### 5 7021-8 ####[facility]ATORYCLIA [id number] [address] Neutrophils/100 WBC (Bld) 65.5 % Normal [facility] Comment on above: Order Comment: Speci men Type: BLOOD SPECIMEN Performed By: #### 5 7021-8 ####[facility]ATORYCLIA [id number] [address] Nucleated RBC (Bld) [#/Vol] 10*3/uL Normal <0.01 [facility] Comment on above: Order Comment: Speci men Type: BLOOD SPECIMEN Performed By: #### 5 7021-8 ####[facility]ORYCLIA [id number] [address] Nucleated RBC/100 WBC (Bld) [Ratio] 0.0 /100 WBC Normal 0.0 [facility] Comment on above: Order Comment: Speci men Type: BLOOD SPECIMEN Performed By: #### 5 7021-8 ####[facility]ORYCLIA [id number] [address] Platelet mean volume (Bld) [Entitic vol] 9.8 fL Normal 9.0-12.7 [facility] Comment on above: Order Comment: Speci men Type: BLOOD SPECIMEN Performed By: #### 5 7021-8 ####[facility]ATORYCLIA [id number] [address] OF [facility] Platelets (Bld) [#/Vol] 251 10*3/uL Normal 150-400 [facility] Comment on above: Order Comment: Speci men Type: BLOOD SPECIMEN Performed By: #### 5 7021-8 ####[facility]ATORYCLIA [id number] [address] OF [facility] RBC (Bld) [#/Vol] 4.10 10*6/uL Low 4.20-6.00 [facility] Comment on above: Order Comment: Speci men Type: BLOOD SPECIMEN Performed By: #### 5 7021-8 ####[facility]ATORYCLIA [id number] [address] WBC (Bld) [#/Vol] 8.25 10*3/uL Normal 3.70-11.00 [facility] Comment on above: Order Comment: Speci men Type: BLOOD SPECIMEN Performed By: #### 5 7021-8 ####[facility]ATORYCLIA [id number] [address] OF [facility] CONSULTon 05-31-2021 CONSULT Normal [facility] CONSULT Normal [facility] CONSULT Normal [facility] CT BRAIN WO IVCONon 05-31-[address] BRAIN WO IVCON Normal [facility] CT BRAIN WO IVCON Normal [facility] CT CHEST WO IVCONon 05-31-19 CT CHEST WO IVCON Normal [facility] Cortis SerPl-mCncon 05-31-19 22 Cortisol [Mass/Vol] 31.0 ug/dL High AM: 5.3-22.5, PM: 3.4-16.8 [facility] Comment on above: Order Comment: Speci men Type: BLOOD SPECIMEN Result Comment: Prov ided reference range is from 6-10 AM sample collection time.Cortisol Reference Range: 6-10 AM = 4.8-19.5 ug/dL, 4-8 PM = 2.5-11.9 ug/dL Performed By: #### 2 143-6, 3016-3 ####[facility]ATORYCLIA [id number] [address] [place] Cryptoc Ag Spec Ql LAon 05-08 Cryptococcus sp Ag LA Ql (Unsp spec) Negative Normal [facility] Comment on above: Performed By: #### 4 3228-6 ####[facility]ATORYCLIA [id number] [address] [place] HISTORY PHYSICALon 2 HISTORY PHYSICAL Normal [facility] Magnesium SerPl-mCncon 05-31 Magnesium [Mass/Vol] 2.2 mg/dL Normal 1.7-2.3 [facility] Comment on above: Order Comment: Speci men Type: BLOOD SPECIMEN Performed By: #### 2 777-1, 48468-1, ####[facility]ATORYCLIA [id number] [address] [place] NURSING PROGon 05-31-2021 NURSING PROG Normal [facility] NUTRITIONon 05-31-2021 NUTRITION Normal [facility] OPERATIVE NOon 05-31-2021 OPERATIVE NO Normal [facility] Phosphate SerPl-mCncon 05-31 Phosphate [Mass/Vol] 3.3 mg/dL Normal 2.7-4.8 [facility] Comment on above: Order Comment: Speci men Type: BLOOD SPECIMEN Performed By: #### 2 777-1, 20348-4, ####[facility]ATORYCLIA [id number] [address] STAPH AUREUS PCRon 2 S. aureus and MRSA panel MEGAN+probe (Nose) Normal Negative [facility] Comment on above: Order Comment: Speci men Type: SWAB OF INTERNAL NOSE Result Comment: Nega tive for Staphylococcus aureus by PCR.Negative for MRSA by PCR Performed By: #### S APCR ####[facility]ATORYCLIA [id number] [address] [place] TSH SerPl-aCncon 05-31-2021 TSH Qn 0.829 m[IU]/L Normal 0.270-4.200 [facility] Comment on above: Order Comment: Speci men Type: BLOOD SPECIMEN Performed By: #### 2 143-6, 3016-3 ####[facility]ORATORYCLIA [id number] [place] [address] [place] XR CHEST 1V FRONTALon 2021 XR CHEST 1V FRONTAL Normal [facility] XR CHEST 1V FRONTAL Normal [facility] Blood Cultureon 05-30-2021 Bacteria identified Cx Nom (Bld) Culture Result - No growth 5 days Normal [facility] Comment on above: Performed By: #### C AD #### [facility] [address] [place] [address] Bacteria identified Cx Nom (Bld) Sp. Request/Comment: - 8.2MLS Culture Result - No growth 5 days Normal [facility] Comment on above: Performed By: #### C AD #### [facility] [address] [place], [place] [address] [place] [address] C-Reactive Proteinon 022 C-Reactive Protein 1.7 mg/dL High <0.[address] [facility] Comment on above: Performed By: #### C RP ####[facility] [address] [place], [place] [id number] CNDSon 05-30-2021 CNDS HNO ID: [id number] Author: Columba Carroll PA-C Service: Hospital Medicine Author Type: Physician Animal Nutritionist Type: Discharge Summary Filed: 05/30/2021 12:49 PM Note Text: ----- Attestation signed by Ayaka Menjivar MD at 06/01/2021 12:53 PM Attending Note I have personally reviewed the PA/LIFE SKILLS TRAINER note. Agree with above assessment and plan. [...] Team: Attending Provider: Ayaka Menjivar MD Physician Animal Nutritionist: Columba Carroll PA-C Consulting: Lilo Mendoza MD [...] consulted. Neurology suggested empiric abx coverage for SUPERVISOR AGENCY APPOINTMENTS infection Rocephin and Vancomycin was started. Tele-neuro also suggested an MRI brain be obtained prior to LP to check SMALL BATTERY PLATE ASSEMBLER shunt and decrease risk of herniation in neurosurgery capable facility. Transfer to [facility] requested. Sepsis lactate was 1.3. ABG showed pO2 67.8, placed patient on 2L NC.Follow B1, B12, and RPR pending. Transitions of Care Critical Issues: - patient transferred for [facility] for management of possible SUPERVISOR AGENCY APPOINTMENTS infection and herniation. LABS AND PROCEDURES PENDING [...] q 1 (more content not included)... Normal [facility] CONSULTon 05-30-2021 CONSULT HNO ID: [id number] Author: Juan Carlos Mckenzie MD Service: Infectious [...] vertebrae with counting from the craniocervical junction. Clerical Production Worker: PSCB Transcribe Date/Time: May 29 2021 8:59P Dictated by : CARLOS YOUNGER MD This examination was interpreted and the report reviewed and electronically signed by: CARLOS YOUNGER MD on May 29 2021 9:14PM EST ? CT CERVICAL SPINE WO (more content not included)... Normal [facility] CONSULT HNO ID: [id number] Author: Lilo Mendoza MD Service: Neurology General Author Type: Physician Type: Consults Filed: 05/30/2021 10:56 AM Note Text: [facility] TeleNeurology Consult Note Patient seen using [facility]. Recommendations are placed in the chart. Please review. 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 Normal [facility] CONSULT PROGon 05-30-2021 CONSULT PROG [facility] CONSULT PROG HNO ID: [id number] Author: Shannon Gutierres [facility] Service: Pharmacy Author Type: Pharmacist Type: Consult Progress Note Filed: 05/30/2021 2:35 PM Note Text: PHARMACY VANCOMYCIN DOSING NOTE Patient Name: Andrew Sifuentes Admission Date: 05/29/2021 Date of Consult: 05/30/2021 Time of Consult: 2:32 PM Indication: possible SUPERVISOR AGENCY APPOINTMENTS infection Goal Range: 15-20 mcg/mL RECOMMENDATIONS/PLAN: Pharmacy [...] any questions, please contact inpatient pharmacy at [phone]. Age: [age] year old Allergies: ALLERGIES Allergen [...] No results found for: YANDELGHULAM Chaudharivanessa Gutierres, [facility] Normal [facility] Creatinineon 05-30-2021 Creatinine [Mass/Vol] 0.86 mg/dL Normal 0.73-1.22 [facility] Comment on above: Performed By: #### C RET1 ####[facility] [address] [place] [phone] eGFR- Amer. >[address] [facility] Comment on above: Performed By: #### C RET1 ####[facility] [address] [place] [phone] eGFR-All Other Races >60 Normal [facility] Comment on above: Result Comment: eGFR (Estimated [...] at [email or web address]. Performed By: #### C RET1 ####[facility] [address] [place] [phone] Crypto Antigen Deton 022 Crypto Antigen Det Sp. Request/Comment: - SST Test Result - Duplicate request Account Credited [facility] Comment on above: Performed By: #### C AD #### [facility] [address] [place] [address] [facility] [address] [place], [place] [id number] Crypto Antigen Det Sp. Request/Comment: - SST Test Result - Cryptococcal antigen detection result: Negative By latex agglutination [facility] Comment on above: Performed By: #### C AD #### [facility] [address] [place] [address] [facility] [address] [place], [place] [id number] ED NOTEon 05-30-2021 ED NOTE HNO ID: [id number] Author: Aletha Lopez RN Service: ? Author Type: Registered Nurse Type: ED Notes Filed: 05/29/2021 11:16 PM Note Text: Patient changed for incontinent urine, labs redrawn and sent. Patient aware of plan to be admitted and agrees with plan [facility] HISTORY PHYSICALon HISTORY PHYSICAL Normal [facility] HISTORY PHYSICAL HNO ID: [id number] Author: Hermes Roca MD Service: Hospital Medicine Author Type: Physician Type: HANDP Filed: 05/30/2021 1:03 AM Note Text: DEPARTMENT OF HOSPITAL MEDICINE HISTORY AND PHYSICAL EXAM SERVICE DATE: 05/29/2021 SERVICE TIME: 11:18 PM Primary Care Physician: Mateus Burris MD NIGHT AND WEEKEND COVERAGE: Please page [phone] until 7:30am this morning. After 7:30am please check the treatment team banner and page the appropriate service. 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 Normal [facility] Magnesium SerPl-mCncon 05-30 Magnesium [Mass/Vol] 2.5 mg/dL High 1.7-2.3 [facility] Comment on above: Order Comment: Speci men Type: BLOOD SPECIMEN Performed By: #### 1 9123-9, 2777-1 ####[facility]ATORYCLIA [id number] [place] [address] [place] NURSING PROGon 05-30-2021 NURSING PROG HNO ID: [id number] Author: Precious Cervantes RN Service: ? Author Type: Registered Nurse Type: Nursing Progress Note Filed: 05/30/2021 11:26 AM Note Text: Nursing Progress Note Patient Name: Andrew Sifuentes Patient Location: [id number] Daily Note: 0700- Report received from third shift lieutenant RN, patient resting in bed at this time, call light within reach, bed low and locked. Asked the patient to state his name because third shift lieutenant RN was unable to complete his admission [facility] HNO ID: [id number] Author: Lyubov Day RN Service: ? Author Type: Registered Nurse Type: Nursing Progress Note Filed: 05/30/2021 1:27 AM Note Text: Nursing Progress Note Patient Name: Andrew Sifuentes Patient Location: [id number] 0100: Patient is unresponsive to questions. Patient [...] 1 9123-9, 2777-1 ####[facility] LABORATORYCLIA [id number] [address] [place] Sepsis Lactateon 05-30-2021 Sepsis Lactate 1.5 mmol/L Normal 0.5-2.[address] [facility] Comment on above: Performed By: #### S LACT ####[facility] [address] [place] [phone] Syphilis Ttl w/Reflxon 05-30 Syphilis Interp Cannot exclude recen t Treponemal infection if specimen collected within 7 to 10 days after appearance of suspect lesions or 2 to 3 weeks after an exposure. Clinical correlation is required. Normal [facility] Comment on above: Performed By: #### S Jennifer RUCKERB ####[facility] [address] [place], [place] [phone] Syphilis Screen Rslt Non-Reactive Normal Non Reactive [facility] Comment on above: Performed By: #### S YPKYLAH B1WB ####[facility] [address] [place], [place] [phone] THERAPY NTon 05-30-2021 THERAPY NT HNO ID: [id number] Author: Bette Jimenez OTR/L Service: Occupational Therapy Author Type: Occupational Therapist Type: Therapy (PT/OT/Speech/Resp) Filed: 05/30/2021 10:29 AM Note Text: OCCUPATIONAL THERAPY MISSED VISIT SERVICE DATE: 05/30/2021 SERVICE TIME: 1017 to 1019 ROOM: [place] [address] Attempted Evaluation. Patient not seen due to Not following commands. Per nursing patient was seen by neuro and they are talking about having him transferred to [facility] secondary to shunt concerns. Will re attempt in the event patient continues to be admitted at [facility] and is able to participate. SIGNATURE: Bette Jimenez OTR/L PATIENT NAME: Andrew Sifuentes DATE: May 30, 2021 TIME: 10:21 AM Normal [facility] THERAPY NT HNO ID: [id number] Author: Bette Velasquez PT Service: Physical Therapy Author Type: Physical Therapist Type: Therapy (PT/OT/Speech/Resp) Filed: 05/30/2021 8:42 AM Note Text: PHYSICAL THERAPY MISSED VISIT SERVICE DATE: 05/30/2021 SERVICE TIME: 0840 to 0840 ROOM: [place] [address] Attempted Evaluation. Patient not seen due to (pt difficult to awake per RN, very lethargic). Will re-attempt when schedule permits. SIGNATURE: Bette Velasquez PT PATIENT NAME: Andrew Sifuentes DATE: May 30, 2021 TIME: 8:41 AM Normal [facility] Toxicology Screen,Uron 05-30 Amphetamines, Urine Negative Normal Negative [facility] Comment on above: Result Comment: Cuto ff threshold at 1000 ng/mL. Performed By: #### C AD #### [facility] [address] [place] [address] [facility] [address] [place], [place] [address] Barbiturates, Urine Negative Normal Negative [facility] Comment on above: Result Comment: Cuto ff threshold at 200 ng/mL. Performed By: #### C AD #### [facility] [address] [place] [address] [place] [phone] [place] [address] Benzodiazepines, Ur Negative Normal Negative [facility] Comment on above: Result Comment: Cuto ff threshold at 200 ng/mL. Performed By: #### C AD #### [facility] [address] [place] [phone] [place] [address] Cannabinoids, Urine Negative Normal Negative [facility] Comment on above: Result Comment: Cuto ff threshold at 50 ng/mL. Performed By: #### C AD #### [facility] [address] [place], [place] 7[address] [place] [address] Cocaine, Urine Negative Normal Negative [facility] Comment on above: Result Comment: Cuto ff threshold at 300 ng/mL. Performed By: #### C AD #### [facility] [address] [place], [place] [address] [place] [address] Opiates, Urine Negative Normal Negative [facility] Comment on above: Result Comment: Cuto ff threshold at 300 ng/mL. Performed By: #### C AD #### [facility] [address] [place], [place] [address] [place] [address] Oxycodone, Urine Negative Normal Negative [facility] Comment on above: Result Comment: Cuto [...] on the same specimen through Client Services ([phone]) if contacted within 48 hours of initial testing. [1]Substance Abuse and Mental Health Services Administration (2012). Clinical Drug Testing in Primary Care Technical Assistance Publication Series 32. Department of Health and Human Services, [place], p.10. Performed By: #### C AD #### [facility] [address] [place], [place] [address] [place] [address] Phencyclidine, Urine Negative Normal Negative [facility] Comment on above: Result Comment: Cuto ff threshold at 25 ng/mL. Performed By: #### C AD #### [facility] [address] [place] [address] Troponin Ton 05-30-2021 Troponin T <0.010 Normal 0.000-0.[address] [facility] Comment on above: Performed By: #### T NT ####[facility] [address] [place] [phone] Urinalysison 05-30-2021 Bilirubin, Urine Negative Normal Negative [facility] Comment on above: Performed By: #### C AD #### [facility] [address] [place], [place] [phone] [place] [address] Clarity (U) Slightly Cloudy Critically abnormal Clear [facility] Comment on above: Performed By: #### C AD #### [facility] [address] [place], [place] [address] [place] [address] Color (U) Yellow Normal Yellow [facility] Comment on above: Performed By: #### C AD #### [facility] [address] [place] [address] Glucose Ql (U) Negative Normal Negative [facility] Comment on above: Performed By: #### C AD #### [facility] [address] [place] [address] [facility] [address] [place], [place] [address] Hemoglobin/Blood,Ur Negative Normal Negative [facility] Comment on above: Performed By: #### C AD #### [facility] [address] [place] [address] [facility] [address] [place], [place] [address] Ketones Ql (U) Negative Normal Negative [facility] Comment on above: Performed By: #### C AD #### [facility] [address] [place] [address] [facility] [address] [place], [place] [address] Leukest Negative Normal Negative [facility] Comment on above: Performed By: #### C AD #### [facility] [address] [place] [address] [facility] [address] [place], [place] [address] Nitrite Ql (U) Negative Normal Negative [facility] Comment on above: Performed By: #### C AD #### [facility] [address] [place] [address] [facility] [address] [place], [place] [address] pH (U) 8.5 [pH] High 5.0-8.[address] [facility] Comment on above: Performed By: #### C AD #### [facility] [address] [place] [address] [facility] [address] [place], [place] [address] Protein, Urine Negative Normal Negative [facility] Comment on above: Performed By: #### C AD #### [facility] [address] [place] [address] [facility] [address] [place], [place] [address] Specific [place], Ur 1.015 Normal 1.005-1.030 [facility] Comment on above: Performed By: #### C AD #### [facility] [address] [place] [address] [place] [address] [place], [place] [address] Urobilinogen Qn (U) 0.2 {Marianne'U}/dL Normal 0.2-1.[address] [facility] Comment on above: Performed By: #### C AD #### [facility] [address] [place] [address] [place] [address] Vitamin B1, Whole Blon 05-30 Vitamin B1 (TDP), WB 207.1 nmol/L Normal 84.0-213.0 [facility] Comment on above: Result Comment: This assay measures the concentration of thiamine diphosphate (TDP), the primary active form of vitamin B1. Approximately 90 percent of vitamin B1 present in whole blood is TDP. Thiamine and thiamine monophosphate, which comprise the remaining 10 percent, are not measured. This test was developed and its performance characteristics determined by [facility]'s Isrrael Chris [facility] [place] ([facility]). It has not been cleared or approved by the FDA. [facility] is regulated under CLIA as qualified to perform high complexity testing. This test is used for clinical purposes. It should not be regarded as investigational or for research. Performed By: #### S YPHTX, B1WB ####[place] [id number] [place], [place] [phone] Vitamin B12on 05-30-2021 Cobalamin (Vitamin B12) [Mass/Vol] 494 pg/mL Normal 232-[address] [facility] Comment on above: Performed By: #### C AD #### [facility] [place] [address] [place] [address] [place], [place] [address] ALLIED HEALTHon 05-29-2021 ALLIED HEALTH HNO ID: [id number] Author: Danica Jose RT(R) Service: Radiology Author [...] RT Kitty(Lisa) May 29, 2021 8:51 PM [facility] HNO ID: [id number] Author: Markie Fish Service: ? Author Type: Crime Scene Analyst Type: Allied Health Filed: 05/29/2021 8:39 PM [...] 05-29 Abs Baso 0.05 k/uL Normal <0.[address] [facility] Comment on above: Performed By: #### C MARÍA ELENA, MG1, CBCDIF ####[facility] [address] [place] [phone] Abs Sharkey 0.72 k/uL Normal <0.[address] [facility] Comment on above: Performed By: #### C MP, MG1, CBCDIF ####[place] [address] Abs Neut 7.86 k/uL High 1.45-7.[address] [facility] Comment on above: Performed By: #### C MP, MG1, CBCDIF ####[place] [address] Absolute nRBC <0.01 Normal <0.[address] [facility] Comment on above: Performed By: #### C MP, MG1, CBCDIF ####[place] [address] Basophils/100 WBC (Bld) 0.5 % Normal [facility] Comment on above: Performed By: #### C MP, MG1, CBCDIF ####[place] [address] DTYPE Auto Diff Normal [facility] Comment on above: Performed By: #### C MP, MG1, CBCDIF ####[place] [address] Eosinophils (Bld) [#/Vol] 0.10 10*3/uL Normal <0.[address] [facility] Comment on above: Performed By: #### C MP, MG1, CBCDIF ####[place] [address] Eosinophils/100 WBC (Bld) 0.9 % Normal [facility] Comment on above: Performed By: #### C MP, MG1, CBCDIF ####[place] [address] Erythrocyte distribution width (RBC) [Ratio] 15.5 % High 11.5-15.[address] [facility] Comment on above: Performed By: #### C MP, MG1, CBCDIF ####[place] [address] Hematocrit (Bld) [Volume fraction] 41.6 % Normal 39.0-51.[address] [facility] Comment on above: Performed By: #### C MP, MG1, CBCDIF ####[place] [address] Hemoglobin (Bld) [Mass/Vol] 12.7 g/dL Low 13.0-17.[address] [facility] Comment on above: Performed By: #### C MP MG1, CBCDIF ####[facility] [address] [place] [address] Lymphocytes (Bld) [#/Vol] 2.04 10*3/uL Normal 1.00-4.[address] [facility] Comment on above: Performed By: #### C MP, MG1, CBCDIF ####[facility] [address] [place] [address] Lymphocytes/100 WBC (Bld) 18.9 % Normal [facility] Comment on above: Performed By: #### C MARÍA ELENA MG1, CBCDIF ####[place] [address] MCH 27.3 pG Normal 26.0-34.[address] [facility] Comment on above: Performed By: #### C MARÍA ELENA MG1, CBCDIF ####[place] [address] MCHC (RBC) [Mass/Vol] 30.5 g/dL Normal 30.5-36.0 [facility] Comment on above: Performed By: #### C MP, MG1, CBCDIF ####[place] [address] MCV (RBC) [Entitic vol] 89.5 fL Normal 80.0-100.[address] [facility] Comment on above: Performed By: #### C MP, MG1, CBCDIF ####[place] [address] Monocytes/100 WBC (Bld) 6.7 % Normal [facility] Comment on above: Performed By: #### C MP, MG1, CBCDIF ####[place] [address] Neutrophils/100 WBC (Bld) 73.0 % Normal [facility] Comment on above: Performed By: #### C MP, MG1, CBCDIF ####[place] [address] NRBCs 0.0 /100 WBC Normal [address] [facility] Comment on above: Performed By: #### C MP, MG1, CBCDIF ####[facility] [address] [place] [address] Platelet mean volume (Bld) [Entitic vol] 10.1 fL Normal 9.0-12.[address] [facility] Comment on above: Performed By: #### C MP, MG1, CBCDIF ####[facility] [address] [place] [phone] Platelets (Bld) [#/Vol] 291 10*3/uL Normal 150-[address] [facility] Comment on above: Performed By: #### C MP, MG1, CBCDIF ####[facility] [address] [place] [address] RBC (Bld) [#/Vol] 4.65 10*6/uL Normal 4.20-6.00 [facility] Comment on above: Performed By: #### C MP, MG1, CBCDIF ####[facility] [address] [place], [place] [phone] WBC (Bld) [#/Vol] 10.77 10*3/uL Normal 3.70-11.00 [facility] Comment on above: Performed By: #### C MP, MG1, CBCDIF ####[facility] [address] [place] [address] CT BRAIN WO IVCONon 05-29-19 CT BRAIN WO IVCON * * *Final Report* * * DATE OF EXAM: May 29 2021 8:42PM [facility] 0504 - CT BRAIN WO IVCON / PROCEDURE REASON: Head trauma, headache * * * * Physician Interpretation * * * * EXAMINATION: CT CERVICAL SPINE WO IVCON, CT BRAIN WO IVCON CLINICAL HISTORY: C-spine trauma, NEXUS/CCR positive (accession [id number]), Head trauma, headache (accession [id number]) TECHNIQUE: Serial axial unenhanced images were obtained from the vertex to the foramen magnum. Spiral, high resolution axial unenhanced images were obtained from the skull base to the cervicothoracic junction with sagittal and coronal planar reconstructions. Dose-Length Product (DLP): 2132 mGy*cm. CT Dose Reduction Employed: Automated exposure control (AEC) COMPARISON: 08/13/[address] RESULT: BRAIN: Post-operative change: Right parietal approach SMALL BATTERY PLATE ASSEMBLER shunt is intact. The intracranial fragments of [...] vertebrae with counting from the craniocervical junction. Clerical Production Worker: OG Transcribe Date/Time: May 29 2021 [...] DATE OF EXAM: May 29 2021 8:42PM [facility] 0505 - CT CERVICAL SPINE WO IVCON / PROCEDURE REASON: C-spine trauma, NEXUS/CCR positive * * * * Physician Interpretation * * * * EXAMINATION: CT CERVICAL SPINE WO IVCON, CT BRAIN WO IVCON CLINICAL HISTORY: C-spine trauma, NEXUS/CCR positive (accession [id number]), Head trauma, headache (accession [id number]) TECHNIQUE: Serial axial unenhanced images were obtained from the vertex to the foramen magnum. Spiral, high resolution axial unenhanced images were obtained from the skull base to the cervicothoracic junction with sagittal and coronal planar reconstructions. Dose-Length Product (DLP): 2132 mGy*cm. CT Dose Reduction Employed: Automated exposure control (AEC) COMPARISON: 08/13/[address] RESULT: BRAIN: Post-operative change: Right parietal approach SMALL BATTERY PLATE ASSEMBLER shunt is intact. The intracranial fragments of [...] vertebrae with counting from the craniocervical junction. Clerical Production Worker: PSCB Transcribe Date/Time: May 29 2021 8:59P Dictated by : CARLOS YOUNGER MD This examination was interpreted and the report reviewed and electronically signed by: CARLOS YOUNGER MD on May 29 2021 9:14PM EST [id number] [facility] Cepheid Bill only (EXCFR)on 05-29-2021 Cepheid Bill only (EXCFR) Billed for services performed [facility] Comment on above: Performed By: #### C AD #### [facility] [address] [place] [address] [facility] [address] [place], [place] [address] Comp Metabolic Panelon 05-29 Albumin [Mass/Vol] 4.1 g/dL Normal 3.9-4.[address] [facility] Comment on above: Performed By: #### C MP ####[facility] [address] [place] [address] ALP [Catalytic activity/Vol] 86 U/L Normal 38-[address] [facility] Comment on above: Performed By: #### C MP ####[facility] [address] [place] [address] ALT [Catalytic activity/Vol] 15 U/L Normal 10-[address] [facility] Comment on above: Performed By: #### C MP ####[facility] [address] [place] [address] Anion gap [Moles/Vol] 9 mmol/L Normal 9-18 [facility] Comment on above: Performed By: #### C MP ####[facility] [address] [place] [address] AST [Catalytic activity/Vol] 22 U/L Normal 14-[address] [facility] Comment on above: Performed By: #### C MP ####[facility] [address] [place] [address] Bilirubin [Mass/Vol] 0.2 mg/dL Normal 0.2-1.3 [facility] Comment on above: Performed By: #### C MP ####[facility] [address] [place] [address] Calcium [Mass/Vol] 9.1 mg/dL Normal 8.5-10.[address] [facility] Comment on above: Performed By: #### C MP ####[facility] [address] [place] [phone] Chloride [Moles/Vol] 103 mmol/L Normal 97-105 [facility] Comment on above: Performed By: #### C MP ####[facility] [address] [place], [place] [address] CO2 [Moles/Vol] 29 mmol/L Normal 22-[address] [facility] Comment on above: Performed By: #### C MP ####[facility] X[address]en[address]721-5160 Creatinine [Mass/Vol] 0.89 mg/dL Normal 0.73-1.22 [facility] Comment on above: Performed By: #### C MP ####[facility] [address] eGFR- Amer. >[address] [facility] Comment on above: Performed By: #### C MP ####[facility] [address]bs[address] eGFR-All Other Races >60 Normal [facility] Comment on above: Result Comment: eGFR (Estimated [...] at [email or web address]. Performed By: #### C MP ####[facility] [address] Glucose [Mass/Vol] 120 mg/dL High 74-[address] [facility] Comment on above: Result Comment: The [place] Diabetes Association (ADA) provides guidance for cutoff [...] Standards of Medical Care in Diabetes 2016, [place] [employer]. Diabetes Care. 2016.39(Suppl 1). Performed By: #### C MP ####[facility] [address] [place] [address] Potassium [Moles/Vol] 4.2 mmol/L Normal 3.7-5.1 [facility] Comment on above: Performed By: #### C MP ####[facility] [address] [place] [address] Protein [Mass/Vol] 7.1 g/dL Normal 6.3-8.[address] [facility] Comment on above: Performed By: #### C MP ####[place] [address] Sodium [Moles/Vol] 141 mmol/L Normal 136-[address] [facility] Comment on above: Performed By: #### C MP ####[facility] [address] [place] [address] Urea nitrogen [Mass/Vol] 11 mg/dL Normal 9-[address] [facility] Comment on above: Performed By: #### C MP ####[facility] [address] [place] [address] Albumin [Mass/Vol] 4.1 g/dL Normal 3.9-4.[address] [facility] Comment on above: Performed By: #### C MP, MG1, CBCDIF ####[facility] [address] [place] [address] ALP [Catalytic activity/Vol] 86 U/L Normal 38-[address] [facility] Comment on above: Performed By: #### C MP, MG1, CBCDIF ####[facility] [address] [place] [address] ALT Unable to assay due to interference from hemolysis. Suggest reorder as clinically indicated. Normal 10-[address] [facility] Comment on above: Result Comment: Call ed to LISA Rea at 2129 on 05.29.21 by Sabino Performed By: #### C MP, MG1, CBCDIF ####[facility] [address] [place] [address] Anion gap [Moles/Vol] 12 mmol/L Normal 9-18 [facility] Comment on above: Performed By: #### C MP, MG1, CBCDIF ####[facility] [address] [place] [address] AST Unable to assay due to interference from hemolysis. Suggest reorder as clinically indicated. Normal 14-[address] [facility] Comment on above: Result Comment: Call ed to ED Álvaro at 2129 on 05.29.21 by Sabino Performed By: #### C MP, MG1, CBCDIF ####[facility] [address] [place] [address] Bilirubin [Mass/Vol] 0.2 mg/dL Normal 0.2-1.3 [facility] Comment on above: Performed By: #### C MP, MG1, CBCDIF ####[facility] [address] [place] [address] Calcium [Mass/Vol] 9.0 mg/dL Normal 8.5-10.[address] [facility] Comment on above: Performed By: #### C MP, MG1, CBCDIF ####[facility] [address] [place] [address] Chloride [Moles/Vol] 102 mmol/L Normal 97-105 [facility] Comment on above: Performed By: #### C MP, MG1, CBCDIF ####[facility] [address] [place] [address] CO2 [Moles/Vol] 27 mmol/L Normal 22-[address] [facility] Comment on above: Performed By: #### C MP, MG1, CBCDIF ####[facility] [address] [place] [address] Creatinine [Mass/Vol] 0.75 mg/dL Normal 0.73-1.22 [facility] Comment on above: Performed By: #### C MP, MG1, CBCDIF ####[facility] [address] [place] [address] eGFR- Amer. >[address] [facility] Comment on above: Performed By: #### C MP, MG1, CBCDIF ####[facility] [address]qslig[address] [place] [address] eGFR-All Other Races >60 Normal [facility] Comment on above: Result Comment: eGFR (Estimated [...] By: #### C MARÍA ELENA, MG1, CBCDIF ####[facility] Ycncrtdkdo9104 [phone] Glucose [Mass/Vol] 112 mg/dL High 74-[address] [facility] Comment on above: Result Comment: The [place] Diabetes Association (ADA) provides guidance for cutoff [...] Standards of Medical Care in Diabetes 2016, [place] [employer]. Diabetes Care. 2016.39(Suppl 1). Performed By: #### C MP, MG1, CBCDIF ####[facility] Pyfisnjgcy6527 [phone] Potassium Unable to assay due to interference from hemolysis. Suggest reorder as clinically indicated. Normal 3.7-5.[address] [facility] Comment on above: Result Comment: Call ed to LISA Rea at 2129 on 05.29.21 by Sabino Performed By: #### C MP, MG1, CBCDIF ####[facility] Mshiszsyat0549 [address] Protein [Mass/Vol] 7.3 g/dL Normal 6.3-8.[address] [facility] Comment on above: Performed By: #### C MP, MG1, CBCDIF ####[facility] Vatbqrborj9481 [address]5[address] Sodium [Moles/Vol] 141 mmol/L Normal 136-[address] [facility] Comment on above: Performed By: #### C MP, MG1, CBCDIF ####[facility] [address] [place] [phone] Urea nitrogen [Mass/Vol] 11 mg/dL Normal 9-[address] [facility] Comment on above: Performed By: #### C MP, MG1, CBCDIF ####[facility] [address] [place] [phone] ED PROV NOTEon 05-29-2021 ED PROV NOTE HNO ID: [id number] Author: Shanell Slaughter MD Service: ? Author [...] No radiographic evidence of acute cardiopulmonary disease. Clerical Production Worker: [facility] Transcribe Date/Time: May 29 2021 8:53P [...] vertebrae with counting from the craniocervical junction. Clerical Production Worker: [facility] Transcribe Date/Time: May 29 2021 8:59P [...] vertebrae with counting from the craniocervical junction. Clerical Production Worker: [facility] Transcribe Date/Time: May 29 (more content not included)... Normal [facility] ED PROV NOTE HNO ID: [id number] Author: Flavio Pnadya DO Service: Emergency Medicine Author Type: Physician Type: ED Provider Notes Filed: 05/29/2021 7:10 PM Note Text: ED Provider Note Patient Name: Andrew Sifuentes SERVICE DATE: 05/29/21 History Patient presents with: Fall 71 yo male non-smoker, hx of HTN, 2 SMALL [employer] shunts, PE (not on anticoagulation now), asthma, [...] with assistance from bedside clinician. Provider Location: [facility] Patient Location: Outpatient Hospital Physical [...] Flavio Pandya, DO 05/29/211909 Normal [facility] EXCOVD, Flu A/B, RSV (On int erfaces 1102,1120)on 05-29-2021 Influenza A PCR Negative Normal [facility] Comment on above: Performed By: #### C AD #### [facility] [address] [place] [address] [facility] [address] [place], [place] [address] Influenza B PCR Negative Normal [facility] Comment on above: Performed By: #### C AD #### [facility] [address] [place], [place] [id number] [place] [address] RSV PCR Negative Normal [facility] Comment on above: Result Comment: This test has been authorized by [facility] under an Emergency Use Authorization (EUA). Performed By: #### C AD #### [facility] [address] [place] [address] SARS-CoV-2 (COVID-19) RNA MEGAN+probe Ql (Unsp spec) UPPER RESPIRATORY TRACT SWAB Normal [facility] Comment on above: Performed By: #### C AD #### [place] [address] SARS-CoV-2 (COVID-19) RNA MEGAN+probe Ql (Unsp spec) Negative for COVID19 (SARS CoV2) by RT-PCR or equivalent method. Normal Negative for COVID19 (SARS CoV2) by RT-PCR or equivalent method. [facility] Comment on above: Result Comment: This test has been authorized by FDA under an Emergency Use Authorization (EUA). Performed By: #### C AD #### [facility] [address] [place] [address] Magnesiumon 05-29-2021 Magnesium [Mass/Vol] 2.2 mg/dL Normal 1.7-2.3 [facility] Comment on above: Performed By: #### C MP, MG1, CBCDIF ####[facility] [address] [place], [place] [phone] NT Pro BNPon 05-29-2021 PRO B Natr Peptide 303 pg/mL High <[address] [facility] Comment on above: Performed By: #### N TBNP ####[facility] [address] [place] [phone] Troponin Ton 05-29-2021 Troponin T <0.010 Normal 0.000-0.[address] [facility] Comment on above: Performed By: #### T NT ####[facility] [address] [place] [phone] Troponin T Unable to assay due to interference from hemolysis. Suggest reorder as clinically indicated. Normal 0.000-0.[address] [facility] Comment on above: Result Comment: Call ed to ED Álvaro at 2129 on 05.29.21 by Sabino Performed By: #### T NT ####[facility] [address] [place] [phone] XR CHEST 1V FRONTAL PORTon 0 05-29-2021 [...] No radiographic evidence of acute cardiopulmonary disease. Clerical Production Worker: [facility] Transcribe Date/Time: May 29 2021 8:53P Dictated by : ROLY BANGURA MD This examination was interpreted and the report reviewed and electronically signed by: ROLY BANGURA MD on May 29 2021 8:54PM EST [id number] Normal [facility] COMPREHENSIVE PANELon 2020 Albumin [Mass/Vol] 3.9 g/dL Normal 3.4 - 5.0 [facility] Comment on above: Order Comment: PATIE NT FASTING Performed By: #### C MP #### [facility] [address] [place] [address] ALP [Catalytic activity/Vol] 71 U/L Normal 33 - 136 [facility] Comment on above: Order Comment: PATIE NT FASTING Performed By: #### C MP #### [facility] [address] [place] [address] ALT [Catalytic activity/Vol] 19 U/L Normal 10 - 52 [facility] Comment on above: Order Comment: PATIE NT FASTING Result Comment: Nasima ents treated with Sulfasalazine may generate falsely decreased results for ALT. Performed By: #### C MP #### [facility] [address] [place] [address] Anion gap [Moles/Vol] 13 mmol/L Normal 10 - 20 [facility] Comment on above: Order Comment: PATIE NT FASTING Performed By: #### C MP #### [facility] [address] [place] [address] AST [Catalytic activity/Vol] 20 U/L Normal 9 - 39 [facility] Comment on above: Order Comment: PATIE NT FASTING Performed By: #### C MP #### [facility] [address] [place] [address] Bilirubin [Mass/Vol] 0.6 mg/dL Normal 0.0 - 1.2 [facility] Comment on above: Order Comment: PATIE NT FASTING Performed By: #### C MP #### [facility] [address] [place] [address] Calcium [Mass/Vol] 9.0 mg/dL Normal 8.6 - 10.6 [facility] Comment on above: Order Comment: PATIE NT FASTING Performed By: #### C MP #### [facility] [address] [place] [address] Chloride [Moles/Vol] 103 mmol/L Normal 98 - 107 [facility] Comment on above: Order Comment: PATIE NT FASTING Performed By: #### C MP #### [facility] [address] [place] [address] Creatinine [Mass/Vol] 0.94 mg/dL Normal 0.50 - 1.30 [facility] Comment on above: Order Comment: PATIE NT FASTING Performed By: #### C MP #### [facility] [address] [place] [address] GFR- AM. >60 Normal >60 [facility] Comment on above: Order Comment: PATIE NT FASTING Result Comment: CALC ULATIONS OF ESTIMATED GFR ARE PERFORMED USING THE MDRD STUDY EQUATION FOR THE IDMS-TRACEABLE CREATININE METHODS. CLIN CHEM 2007;53:766-72 Performed By: #### C MP #### [facility] [address] [place] [address] GFR-NON AM. >60 Normal >60 [facility] Comment on above: Order Comment: PATIE NT FASTING Performed By: #### C MP #### [facility] [address] [place] [address] Glucose [Mass/Vol] 85 mg/dL Normal 74 - 99 [facility] Comment on above: Order Comment: PATIE NT FASTING Performed By: #### C MP #### [facility] [address] [place] [address] HCO3 (Bld) [Moles/Vol] 30 mmol/L Normal 21 - 32 [facility] Comment on above: Order Comment: PATIE NT FASTING Performed By: #### C MP #### [facility] [address] [place] [address] Potassium [Moles/Vol] 4.1 mmol/L Normal 3.5 - 5.3 [facility] Comment on above: Order Comment: PATIE NT FASTING Performed By: #### C MP #### [facility] [address] [place] [address] Protein [Mass/Vol] 6.6 g/dL Normal 6.4 - 8.2 [facility] Comment on above: Order Comment: PATIE NT FASTING Performed By: #### C MP #### [facility] [address] [place] [address] Sodium [Moles/Vol] 142 mmol/L Normal 136 - 145 [facility] Comment on above: Order Comment: PATIE NT FASTING Performed By: #### C MP #### [facility] [address] [place] [address] Urea nitrogen [Mass/Vol] 14 mg/dL Normal 6 - 23 [facility] Comment on above: Order Comment: PATIE NT FASTING Performed By: #### C MP #### [facility] [address] [place] [address] LIPID PANEL (CORONARY RISK 2 )on 09-03-2020 Cholesterol [Mass/Vol] 210 mg/dL High 0 - 199 [facility] Comment on above: Order Comment: PATIE [...] Performed By: #### L IPID #### [facility] [address] [place] [address] Cholesterol in HDL [Mass/Vol] 50.1 mg/dL Normal [facility] Comment on above: Order Comment: PATIE NT FASTING Result Comment: . AGE VERY LOW LOW NORMAL HIGH 0-19 Y < 35 < 40 40-45 ---- 20-24 Y ---- < 40 >45 ---- >24 Y ---- < 40 40-60 >60 . Performed By: #### L IPID #### [facility] [address] [place] [address] Cholesterol in LDL [Mass/Vol] 130 mg/dL High 0 - 99 [facility] Comment on above: Order Comment: PATIE NT FASTING Result Comment: . NEAR BORD AGE DESIRABLE OPTIMAL HIGH HIGH VERY HIGH 0-19 Y 0 - 109 --- 110-129 >/= 130 ---- 20-24 Y 0 - 119 --- 120-159 >/= 160 ---- >24 Y 0 - 99 100-129 130-159 160-189 >/=190 . Performed By: #### L IPID #### [facility] [address] [place] [address] Cholesterol in VLDL [Mass/Vol] 30 mg/dL Normal 0 - 40 [facility] Comment on above: Order Comment: PATIE NT FASTING Performed By: #### L IPID #### [facility] [address] [place] [address] Cholesterol.total/Chol esterol in HDL [Mass ratio] 4.2 {ratio} Normal [facility] Comment on above: Order Comment: PATIE NT FASTING Result Comment: REF VALUES DESIRABLE < 3.4 HIGH RISK > 5.0 Performed By: #### L IPID #### [facility] [address] [place] [address] Triglyceride [Mass/Vol] 152 mg/dL High 0 - 149 [facility] Comment on above: Order Comment: PATIE [...] Performed By: #### L IPID #### [facility] [address] [place] [address] PROSTATE SPEC.AG,SCREENon PROSTATE SPEC.AG,SCREEN 0.37 ng/mL Normal 0.00 - 4.00 [facility] Comment on above: Order Comment: PATIE NT FASTING Result Comment: The FDA requires that the method used for PSA assay be reported to the physician. Values obtained with different assay methods must not be used interchangeably. This test was performed at [facility] using the Siemens Vook PSA method, which is a sandwich immunoassay using chemiluminescence for quantitation. The assay is approved for measurement of prostate-specific antigen (PSA) in serum and may be used in conjunction with a digital rectal examination in men 50 years and older as an aid in detection of prostate cancer. 5-Hlsaj-wbcqzwigo inhibitors (e.g. Proscar, Finasteride, Avodart, Dutasteride and Elizabeth) for the treatment of BPH have been shown to lower PSA levels by an average of 50% after 6 months of treatment. Performed By: #### P SAS #### [facility] [address] [place] [address] TSH WITH REFLEX TO FREE T4 I F ABNORMALon 09-03-2020 TSH Qn 0.97 m[IU]/L Normal 0.44 - 3.98 [facility] Comment on above: Order Comment: PATIE NT FASTING Result Comment: TSH testing is performed using different testing methodology at [facility] than at other [facility]. Direct result comparisons should only be made within the same method. Performed By: #### T HYDS #### [facility] [address] [place] [address] CBC AND DIFFERENTIALon 09-02 % AUTOMATED IMMATURE GRAN 0.3 % Normal 0.0 - 0.9 [facility] Comment on above: Order Comment: PATIE NT FASTING Result Comment: [place] Granulocyte Count (IG) includes promyelocytes, myelocytes and metamyelocytes but does not include bands. Percent differential counts (%) should be interpreted in the context of the absolute cell counts (cells/L). Performed By: #### C BCDF #### [facility] [address] [place] [address] Basophils (Bld) [#/Vol] 0.07 10*3/uL Normal 0.00 - 0.10 [facility] Comment on above: Order Comment: PATIE NT FASTING Result Comment: Auto mated WBC differential has been confirmed by manual smear. Performed By: #### C BCDF #### [facility] [address] [place] [address] Basophils/100 WBC (Bld) 0.9 % Normal 0.0 - 2.0 [facility] Comment on above: Order Comment: PATIE NT FASTING Performed By: #### C BCDF #### [facility] [address] [place] [address] Eosinophils (Bld) [#/Vol] 0.21 10*3/uL Normal 0.00 - 0.70 [facility] Comment on above: Order Comment: PATIE NT FASTING Performed By: #### C BCDF #### [facility] [address] [place] [address] Eosinophils/100 WBC (Bld) 2.8 % Normal 0.0 - 6.0 [facility] Comment on above: Order Comment: PATIE NT FASTING Performed By: #### C BCDF #### [facility] [address] [place] [address] Lymphocytes (Bld) [#/Vol] 2.28 10*3/uL Normal 1.20 - 4.80 [facility] Comment on above: Order Comment: PATIE NT FASTING Performed By: #### C BCDF #### [facility] [address] [place] [address] Lymphocytes/100 WBC (Bld) 30.9 % Normal 13.0 - 44.0 [facility] Comment on above: Order Comment: PATIE NT FASTING Performed By: #### C BCDF #### [facility] [address] [place] [address] Monocytes (Bld) [#/Vol] 0.50 10*3/uL Normal 0.10 - 1.00 [facility] Comment on above: Order Comment: PATIE NT FASTING Performed By: #### C BCDF #### [place] [address] [place] [address] Monocytes/100 WBC (Bld) 6.8 % Normal 2.0 - 10.0 [facility] Comment on above: Order Comment: PATIE NT FASTING Performed By: #### C BCDF #### [facility] [address] [place] [address] Neutrophils (Bld) [#/Vol] 4.29 10*3/uL Normal 1.20 - 7.70 [facility] Comment on above: Order Comment: PATIE NT FASTING Performed By: #### C BCDF #### [facility] [address] [place] [address] Neutrophils/100 WBC (Bld) 58.3 % Normal 40.0 - 80.0 [facility] Comment on above: Order Comment: PATIE NT FASTING Performed By: #### C BCDF #### [facility] [address] [place] [address] Erythrocyte distribution width (RBC) [Ratio] 14.6 % High 11.5 - 14.5 [facility] Comment on above: Order Comment: PATIE NT FASTING Performed By: #### C BCDF #### [facility] [address] [place] [address] Hematocrit (Bld) [Volume fraction] 43.1 % Normal 41.0 - 52.0 [facility] Comment on above: Order Comment: PATIE NT FASTING Performed By: #### C BCDF #### [facility] [address] [place] [address] Hemoglobin (Bld) [Mass/Vol] 13.3 g/dL Low 13.5 - 17.5 [facility] Comment on above: Order Comment: PATIE NT FASTING Performed By: #### C BCDF #### [facility] [address] [place] [address] MCHC (RBC) [Mass/Vol] 30.9 g/dL Low 32.0 - 36.0 [facility] Comment on above: Order Comment: PATIE NT FASTING Performed By: #### C BCDF #### [facility] [address] [place] [address] MCV (RBC) [Entitic vol] 92 fL Normal 80 - 100 [facility] Comment on above: Order Comment: PATIE NT FASTING Performed By: #### C BCDF #### [facility] [address] [place] [address] NUCLEATED RBC 0.0 /100 WBC Normal 0.0-0.0 [facility] Comment on above: Order Comment: PATIE NT FASTING Performed By: #### C BCDF #### [facility] [address] [place] [address] Platelets (Bld) [#/Vol] 267 10*3/uL Normal 150 - 450 [facility] Comment on above: Order Comment: PATIE NT FASTING Performed By: #### C BCDF #### [facility] [address] [place] [address] RBC 4.69 x10E12/L Normal 4.50 - 5.90 [facility] Comment on above: Order Comment: PATIE NT FASTING Performed By: #### C BCDF #### [facility] [address] [place] [address] WBC (Bld) [#/Vol] 7.4 10*3/uL Normal 4.4 - 11.3 [facility] Comment on above: Order Comment: PATIE NT FASTING Performed By: #### C BCDF #### [facility] [address] [place] [address] RED CELL MORPHOLOGYon 2020 CHANELL CELLS Few Normal [facility] Comment on above: Order Comment: PATIE NT FASTING Performed By: #### M ORP2 #### [facility] [address] [place] [address] OVALOCYTES Few Normal [facility] Comment on above: Order Comment: PATIE NT FASTING Performed By: #### M ORP2 #### [facility] [address] [place] [address] POLYCHROMASIA Mild Normal [facility] Comment on above: Order Comment: PATIE NT FASTING Performed By: #### M ORP2 #### [facility] [address] [place] [address] RBC FRAGMENTS Few Normal [facility] Comment on above: Order Comment: PATIE NT FASTING Performed By: #### M ORP2 #### [facility] [address] [place] [address] RBC morphology finding Nom (Bld) See Below Normal [facility] Comment on above: Order Comment: PATIE NT FASTING Performed By: #### M ORP2 #### [facility] [address] [place] [address] No Panel Informationon 01-19 76 1 MP-Cardiolo [...] [place] Work Phone: [email or web address] ?RetrieveTestByDateTime?P hmkrjmUK=[id number]&Date=1 09-13-2019&Time=15%3a11%3a 03%3a00&TestType=ECG&Site =1&OutputType=PDF&Ext=PDF MP-Cardiolo gy-[place] 140 [place] Work Phone: Otheron 11-13-2019 [facility] Complete Blood Count + Diffe rentialon [...] width (RBC) [Ratio] 13.7 % See Below [facility] Work Phone: Comment on above: Reference Range: 11. 5 - 14.5 Hematocrit (Bld) [Volume fraction] 45.5 % See Below [facility] Work Phone: Comment on above: Reference Range: 41. 0 - 52.0 Hemoglobin (Bld) [Mass/Vol] 14.0 g/dL See Below [facility] Work Phone: Comment on above: Reference Range: 13. 5 - 17.5 Lymphocytes (Bld) [#/Vol] 2.15 {x10E9/L} See Below [facility] Work Phone: Comment on above: Reference Range: 1.2 0 - 4.80 Lymphocytes/100 WBC (Bld) 29.9 % See Below [facility] Work Phone: Comment on above: Reference Range: 13. 0 - 44.0 MCHC (RBC) [Mass/Vol] 30.8 g/dL below low threshold See Below [facility] Work Phone: Comment on above: Reference Range: 32. 0 - 36.0 MCV (RBC) [Entitic vol] 94 fL 80 - 100 -[facility] Work Phone: Monocytes (Bld) [#/Vol] 0.49 {x10E9/L} See Below [facility] Work Phone: Comment on above: Reference Range: 0.1 0 - 1.00 Monocytes/100 WBC (Bld) 6.8 % 2.0 - 10.0 -[facility] Work Phone: Neutrophils (Bld) [#/Vol] 4.30 {x10E9/L} See Below [facility] Work Phone: Comment on above: Reference Range: 1.2 0 - 7.70 Neutrophils/100 WBC (Bld) 59.9 % See Below [facility] Work Phone: Comment on above: Reference Range: 40. 0 - 80.0 Platelets (Bld) [#/Vol] 270 {x10E9/L} 150 - 450 [facility] Work Phone: RBC (Bld) [#/Vol] 4.85 {x10E12/L} See Below [facility] Work Phone: Comment on above: Reference Range: 4.5 0 - 5.90 WBC (Bld) [#/Vol] 0.0 {/100_WBC} 0.0-0.0 [facility] Work Phone: WBC (Bld) [#/Vol] 7.2 {x10E9/L} 4.4 - 11.3 [facility] Work Phone: Complete Blood Count + Differential 0.1 % 0.0 - 0.9 [facility] Work Phone: Comment on above: Immature Granulocyte Count (IG) includes promyelocytes, myelocytes and metamyelocytes but does not include bands. Percent differential counts (%) should be interpreted in the context of the absolute cell counts (cells/L). Lipid Panelon 11-06-2019 Cholesterol [Mass/Vol] 181 mg/dL 0 - 199 [facility] Work Phone: Comment [...] dosing. Cholesterol in HDL [Mass/Vol] 52.1 mg/dL [facility] Work Phone: Comment on above: . AGE VERY LOW LOW N ORMAL HIGH 0-19 Y < 35 < 40 40-45 ---- 20-24 Y ---- < 40 >45 ---- >24 Y ---- < 40 40-60 >60. Cholesterol in LDL [Mass/Vol] 97 mg/dL 0 - 99 [facility] Work Phone: Comment on above: . NEAR BORD AGE IZABELLA RABLE OPTIMAL HIGH HIGH VERY HIGH 0-19 Y 0 - 109 --- 110-129 >/= 130 ---- 20-24 Y 0 - 119 --- 120-159 >/= 160 ---- >24 Y 0 - 99 100-129 130-159 160-189 >/=190. Cholesterol.total/Chol esterol in HDL [Mass ratio] 3.5 {ratio} [facility] Work Phone: Comment on above: REF VALUESDESIRABLE < 3.4HIGH RISK > 5.0 Triglyceride [Mass/Vol] 158 mg/dL above high threshold 0 - 149 [facility] Work Phone: Comment on above: . AGE [...] Lipid Panel 32 mg/dL 0 - 40 [facility] Work Phone: Metabolic Panelon 11-06-2019 ALP [Catalytic activity/Vol] 70 U/L 33 - 136 [facility] Work Phone: Anion gap [Moles/Vol] 13 mmol/L 10 - 20 [facility] Work Phone: Bilirubin [Mass/Vol] 0.6 mg/dL 0.0 - 1.2 [facility] Work Phone: Calcium [Mass/Vol] 9.4 mg/dL 8.6 - 10.6 [facility] Work Phone: Chloride [Moles/Vol] 99 mmol/L 98 - 107 [facility] Work Phone: CO2 [Moles/Vol] 30 mmol/L 21 - 32 [facility] Work Phone: Creatinine [Mass/Vol] 0.87 mg/dL See Below [facility] Work Phone: Comment on above: Reference Range: 0.5 0 - 1.30 Glucose [Mass/Vol] 89 mg/dL 74 - 99 [facility] Work Phone: Potassium [Moles/Vol] 4.3 mmol/L 3.5 - 5.3 [facility] Work Phone: Protein [Mass/Vol] 7.3 g/dL 6.4 - 8.2 [facility] Work Phone: Sodium [Moles/Vol] 138 mmol/L 136 - 145 [facility] Work Phone: Urea nitrogen [Mass/Vol] 14 mg/dL 6 - 23 -[facility] Work Phone: Otheron 11-06-2019 Albumin BCP dye [Mass/Vol] 4.4 g/dL 3.4 - 5.0 -[facility] Work Phone: ALT With P-5'-P [Catalytic activity/Vol] 11 U/L 10 - 52 [facility] Work Phone: Comment on above: Patients treated wit h Sulfasalazine may generate falsely decreased results for ALT. AST With P-5'-P [Catalytic activity/Vol] 17 U/L 9 - 39 [facility] Work Phone: >60 >60 [facility] Work Phone: Comment on above: CALCULATIONS OF LUZMARIA MATED GFR ARE PERFORMED USING THE MDRD STUDY EQUATION FOR THE IDMS-TRACEABLE CREATININE METHODS. CLIN CHEM 2007;[id number] Culture, urine Bacteria identified Cx Nom (U) Mixed Gram Pos & Gram Neg Org [facility] Work Phone: Bacteria identified Cx Nom (U) Klebsiella pneumoniae sp pneum [facility] Work Phone: Vital Signs Date Time Vital Sign Value Performing Clinician Facility 09-13-2023 11:48-0400 Body height 175.3 cm Rebecca Buck MD Work Phone: [facility] 09-13-2023 11:48-0400 Body mass index (BMI) [Ratio] 25.84 kg/m2 Rebecca Buck MD Work Phone: [facility] 09-13-2023 11:48-0400 Body weight 79.38 kg Rebecca Buck MD Work Phone: [facility] 08-13-2023 09:56-0400 Body height 175.3 cm Rebecca Buck MD Work Phone: [facility] 08-13-2023 09:56-0400 Body mass index (BMI) [Ratio] 25.84 kg/m2 Rebecca Buck MD Work Phone: [facility] 08-13-2023 09:56-0400 Body weight 79.38 kg Rebecca Buck MD Work Phone: [facility] 03-02-2022 18:49-0400 Body temperature 98.01 [degF] Lanette Munguia DO Work Phone: [facility] 03-02-2022 18:49-0400 Diastolic blood pressure 72 mm[Hg] Lanette Munguia DO Work Phone: [employer] 03-02-2022 18:49-0400 Heart rate 94 /min Lanette Munguia DO Work Phone: [employer] 03-02-2022 18:49-0400 Respiratory rate 18 /min Lanette Munguia DO Work Phone: [employer] 03-02-2022 18:49-0400 SaO2% (BldA) [Mass fraction] 98 % Lanette Munguia DO Work Phone: [employer] 03-02-2022 18:49-0400 Systolic blood pressure 104 mm[Hg] Lanette Munguia DO Work Phone: [facility] 03-02-2022 11:55-0400 Body height 175.3 cm Lanette Munguia DO Work Phone: [employer] 03-02-2022 11:55-0400 Body mass index (BMI) [Ratio] 25.84 kg/m2 Lanette Munguia DO Work Phone: [employer] 03-02-2022 11:55-0400 Body weight 79.38 kg Lanette Munguia DO Work Phone: [facility] 12-22-2021 02:08-0400 Diastolic blood pressure 67 mm[Hg] Sharon Gonzalez MD Work Phone: [facility] 12-22-2021 02:08-0400 Heart rate 77 /min Sharon [facility] MD [facility] 12-22-2021 02:08-0400 Respiratory rate 16 /min Sharon Gonzalez MD [facility] 12-22-2021 02:08-0400 SaO2% (BldA) [Mass fraction] 96 % Sharon Gonzalez MD Work Phone: [facility] 12-22-2021 02:08-0400 Systolic blood pressure 108 mm[Hg] Sharon Gonzalez MD Work Phone: [facility] 12-21-2021 23:52-0400 Body height 175.3 cm Sharon Gonzalez MD Work Phone: [facility] 12-21-2021 23:52-0400 Body mass index (BMI) [Ratio] 25.84 kg/m2 Sharon Gonzalez MD Work Phone: [facility] 12-21-2021 23:52-0400 Body temperature 97.9 [degF] Sharon Gonzalez MD Work Phone: [facility] 12-21-2021 23:52-0400 Body weight 79.38 kg Sharon Gonzalez MD Work Phone: [facility] 11-01-2021 08:41-0400 Diastolic blood pressure 77 mm[Hg] Dante Kim MD Work Phone: [facility] 11-01-2021 08:41-0400 Heart rate 75 /min Dante Kim MD Work Phone: [facility] 11-01-2021 08:41-0400 Respiratory rate 16 /min Dante Kim MD Work Phone: [facility] 11-01-2021 08:41-0400 SaO2% (BldA) [Mass fraction] 97 % Dante Kim MD Work Phone: [facility] 11-01-2021 08:41-0400 Systolic blood pressure 112 mm[Hg] Dante Kim MD Work Phone: [facility] 10-31-2021 19:13-0400 Body height 177.8 cm Dante Kim MD Work Phone: [facility] 10-31-2021 19:13-0400 Body mass index (BMI) [Ratio] 27.26 kg/m2 Dante Kim MD Work Phone: [facility] 10-31-2021 19:13-0400 Body temperature 98.49 [degF] Dante Kim MD Work Phone: [facility] 10-31-2021 19:13-0400 Body weight 86.18 kg Dante Kim MD Work Phone: [facility] 10-29-2021 07:38-0400 Body temperature 97.81 [degF] Lisa Miguel Angel DO Work Phone: [facility] 10-29-2021 07:38-0400 Diastolic blood pressure 79 mm[Hg] Lisa Miguel Angel DO Work Phone: [facility] 10-29-2021 07:38-0400 Heart rate 80 /min Lisa Miguel Angel DO Work Phone: [facility] 10-29-2021 07:38-0400 Respiratory rate 18 /min Lisa Miguel Angel DO Work Phone: [facility] 10-29-2021 07:38-0400 SaO2% (BldA) [Mass fraction] 96 % Lisa Miguel Angel DO Work Phone: [facility] 10-29-2021 07:38-0400 Systolic blood pressure 123 mm[Hg] Lisa Miguel Angel DO Work Phone: [facility] 10-25-2021 13:55-0400 Body height 170.2 cm Lisa Miguel Angel DO Work Phone: [facility] 10-21-2021 00:57-0400 Body mass index (BMI) [Ratio] 37.58 kg/m2 Lisa Miguel Angel DO Work Phone: [facility] 10-21-2021 00:57-0400 Body weight 108.86 kg Lisa Michelle DO Work Phone: [facility] 07-13-2020 13:21-0500 BMI (Body Mass Index) 40.47 kg/m2 Monika Staley [facility] Work Phone: 07-13-2020 13:21-0500 Body Temperature 98 [degF] Monika Staley [facility] Work Phone: 07-13-2020 13:21-0500 Body weight 124.31 kg Monika Staley [facility] Work Phone: 07-13-2020 13:21-0500 [...] Source: 04-13-2020 15:33-0500 0 1 Wing Ritter [facility] Work Phone: Comment on above: Pain Scale 01-20-2020 16:39-0400 Body height 175.26 cm Monika Staley MD MP-Cardiolog y-[facility] [address] [place] Work Phone: 01-20-2020 16:39-0400 Body mass index (BMI) [Ratio] 39.28 kg/m2 Monika Staley MD SW-Tsphqzquht-Vhs [facility] [address] [place] Work Phone: 01-20-2020 16:39-0400 Body surface area Derived from formula 2.33 m2 Monika Staley MD UN-Bfahftnycw-Yfk [facility] [address] [place] Work Phone: 01-20-2020 16:39-0400 Body weight 120.66 kg Monika Staley MD -Cardiolog y-[facility] [address] [place] Work Phone: 01-20-2020 16:39-0400 Diastolic blood pressure 84 mm[Hg] Monika Staley MD QY-Mxyuasevzv-Qzp [facility] [address] [place] Work Phone: Comment on above: Location: [facility]; Position: Sitting 01-20-2020 16:39-0400 Heart rate 80 /min Monika Staley MD -Cardiolog y-[facility] [address] [place] Work Phone: 01-20-2020 16:39-0400 SaO2% (BldA) [Mass fraction] 100 % Monika Staley MD ET-Hqkgawefgn-Cdy [facility] [address] [place] Work Phone: Comment on above: Source: 01-20-2020 16:39-0400 Systolic blood pressure 144 mm[Hg] Monika Staley MD RK-Qnehlpaygj-Ald [facility] [address] [place] Work Phone: Comment on above: Location: [facility]; Position: Sitting 11-06-2019 15:29-0400 BMI (Body Mass Index) 38.31 kg/m2 [facility] Work Phone: 11-06-2019 [...] Start: 01-22-2025 ambulatory Mahaveer Mukka flash OLS Facility:[facility] Start: 01-19-2025 ambulatory Carlos Quickros OLS Faci lity:[facility] Start: 01-15-2025 ambulatory Mahaveer Mukka flash OLS Facility:[facility] Start: 01-12-2025 ambulatory Mahaveer Mukka flash OLS Facility:[facility] Start: 01-08-2025 ambulatory Mahaveer Mukka flash OLS Facility:[facility] Start: 01-06-2025 ambulatory Mahaveer Mukka flash OLS Facility:[facility] Start: 01-01-2025 ambulatory Mahaveer Mukka flash OLS Facility:[facility] Start: 12-29-2024 ambulatory Peter Katsaros OLS Faci lity:[facility] Start: 12-26-2024 ambulatory Mahaveer Mukka flash OLS Facility:[facility] Start: 12-25-2024 ambulatory Mahaveer Mukka flash OLS Facility:[facility] Start: 12-24-2024 ambulatory Peter Katsaros OLS Faci lity:[facility] Start: 12-22-2024 ambulatory Mahaveer Mukka flash OLS Facility:[facility] Start: 12-18-2024 ambulatory Mahaveer Mukka flash OLS Facility:[facility] Start: 12-15-2024 ambulatory Mahaveer Mukka flash OLS Facility:[facility] Start: 12-11-2024 ambulatory Peter Katsaros OLS Faci lity:[facility] Start: 12-08-2024 ambulatory Mahaveer Mukka flash OLS Facility:[facility] Start: 12-04-2024 ambulatory Mahaveer Mukka flash OLS Facility:[facility] Start: 12-02-2024 ambulatory Mahaveer Mukka flash OLS Facility:[facility] Start: 12-01-2024 ambulatory Peter Katsaros OLS Faci lity:[facility] Start: 11-28-2024 ambulatory Peter Katsaros OLS Faci lity:[facility] Start: 11-27-2024 ambulatory Mahaveer Mukka flash OLS Facility:[facility] Start: 11-24-2024 ambulatory Mahaveer Mukka flash OLS Facility:[facility] Start: 11-20-2024 ambulatory Mahaveer Mukka flash OLS Facility:[facility] Start: 11-17-2024 ambulatory Mahaveer Mukka flash OLS Facility:[facility] Start: 11-13-2024 ambulatory Mahaveer Mukka flash OLS Facility:[facility] Start: 11-10-2024 ambulatory Mahaveer Mukka flash OLS Facility:[facility] Start: 11-06-2024 ambulatory Mahaveer Mukka flash OLS Facility:[facility] Start: 11-03-2024 ambulatory Peter Katsaros OLS Faci lity:[facility] Start: 10-30-2024 ambulatory Mahaveer Mukka flash OLS Facility:[facility] Start: 10-30-2024 [facility] Start: 10-27-2024 ambulatory Mahaveer Mukka flash OLS Facility:[facility] Start: 10-27-2024 Registered Referred Karon casillas MD -[facility] [employer] Start: 10-23-2024 ambulatory Karon jack vidales OLS Facility:[facility] Start: 10-23-2024 Registered Referred Karon casillas MD -[facility] [employer] Start: 10-20-2024 ambulatory Karon jack vidales OLS Facility:[facility] Start: 10-20-2024 Registered Referred Karon casillas MD -[facility] [employer] Start: 10-16-2024 ambulatory Karon jack vidales OLS Facility:[facility] Start: 10-16-2024 Registered Referred [facility] Start: 10-13-2024 ambulatory Carlos NOVAK Faci lity:[facility] Start: 10-13-2024 Registered Referred Carlos Cavazos - [facility] [employer] Start: 10-09-2024 [facility] Start: 10-09-2024 Registered Referred Karon casillas MD -[facility] [employer] Start: 10-06-2024 ambulatory Carlos NOVAK Faci lity:[facility] Start: 10-06-2024 Registered Referred Carlos Cavazos - [facility] [employer] Start: 10-02-2024 ambulatory Karon jack vidales OLS Facility:[facility] Start: 10-02-2024 Registered Referred [facility]aron [facility] [employer] [facility] Start: 09-30-2024 End: 09-30-[address] Monika Staley MD Work Phone: [facility] Work Phone: Start: 09-30-2024 End: 09-30-2024 Departed Referred Karon [facility]otala [facility] [employer] Start: 09-30-2024 Registered Referred Karon ReederPotala [facility]illo [employer] Start: 09-30-2024 End: 09-30-2024 ambulatory Mahamber NOVAK Facility:[facility] Start: 09-25-2024 ambulatory Karon vidales OLS Facility:[facility] Start: 09-25-2024 Registered Referred Karon casillas MD -[facility] [employer] [facility] Start: 09-22-2024 End: 09-22-[address] Monika Staley MD Work Phone: -[facility] [facility] Start: 09-22-2024 End: 09-22-2024 Departed Referred Karon Corrales MD -[facility] [employer] Start: 09-22-2024 Registered Referred Karon casillas MD -[facility] [employer] Start: 09-22-2024 End: 09-22-2024 ambulatory Karon Corrales OLS Facility:[facility] Start: 09-18-2024 End: 09-18-[address] Monika Staley MD Work Phone: -[facility] [facility] Start: 09-18-2024 End: 09-18-2024 Departed Referred Karon Corrales MD -[facility] [employer] Start: 09-18-2024 Registered Referred Karon casillas MD -[facility] [employer] Start: 09-18-2024 End: 09-18-2024 ambulatory Karon Corrales OLS Facility:[facility] Start: 09-15-2024 End: 09-15-[address] Monika Staley MD Work Phone: [facility] Work Phone: Start: 09-15-2024 End: 09-15-2024 Departed Referred Carlos Cavazos -[facility] [employer] Start: 09-15-2024 Registered Referred Carlos Cavazos - [facility] [employer] Start: 09-15-2024 End: 09-15-2024 ambulatory Carlos Cavazos OLS Facility:[facility] Start: 09-11-2024 ambulatory Monika Rosasi ty:[facility] Start: 09-11-2024 Registered Referred Karon casillas MD -[facility] [employer] Start: 09-08-2024 End: 09-08-[address] Monika Staley MD Work Phone: [facility] Work Phone: Start: 09-08-2024 End: 09-08-2024 Departed Referred Karon Corrales MD -[facility] [employer] Start: 09-08-2024 Registered Referred Karon casillas MD -[facility] [employer] Start: 09-08-2024 End: 09-08-2024 ambulatory Karon NOVAK Facility:[facility] Start: 09-04-2024 End: 09-04-2024 Departed Referred Carlos Cavazos -[facility] [employer] Start: 09-04-2024 Registered Referred Carlos Lópezsaviri - [facility] [employer] Start: 09-04-2024 End: 09-04-2024 ambulatory Carlos NOVAK Facility:[facility] Start: 09-01-2024 End: 09-01-[address] Monika Staley MD Work Phone: [facility] Work Phone: Start: 09-01-2024 End: 09-01-2024 Departed Referred Carlos Cavazos -[facility] [employer] Start: 09-01-2024 Registered Referred Carlos Lópezsaros - [facility] [employer] Start: 09-01-2024 End: 09-01-2024 ambulatory Carlos NOVAK Facility:[facility] Start: 08-28-2024 End: 08-28-[address] Monika Staley MD Work Phone: [facility] Work Phone: Start: 08-28-2024 End: 08-28-2024 Departed Referred Carlos Cavazos -[facility] [employer] Start: 08-28-2024 Registered Referred Carlos Lópezsaviri - [facility] [employer] Start: 08-28-2024 End: 08-28-2024 ambulatory Carlos Kenny OLS Facility:[facility] Start: 08-25-2024 End: 08-25-[address] Monika Staley MD Work Phone: [facility] Work Phone: Start: 08-25-2024 End: 08-25-2024 Departed Referred Karon Corrales MD -[facility] Start: 08-25-2024 Registered Referred Karon casillas MD -[facility] Start: 08-25-2024 End: 08-25-2024 ambulatory Karon NOVAK Facility:[facility] Start: 08-21-2024 End: 08-21-[address] Monika Staley MD Work Phone: [facility] Work Phone: Start: 08-21-2024 End: 08-21-2024 Departed Referred Karon Corrales MD -[facility] [facility] Start: 08-21-2024 Registered Referred Karon casillas MD -[facility] Start: 08-21-2024 End: 08-21-2024 ambulatory Karon NOVAK Facility:[facility] Start: 08-18-2024 End: 08-18-[address] Monika Staley MD Work Phone: [facility] Work Phone: Start: 08-18-2024 End: 08-18-2024 Departed Referred Karon Corrales MD -[facility] Start: 08-18-2024 Registered Referred Karon casillas MD -[facility] Start: 08-18-2024 End: 08-18-2024 ambulatory Karon NOVAK Facility:[facility] Start: 08-14-2024 End: 08-14-[address] Monika Staley MD Work Phone: [facility] Work Phone: Start: 08-14-2024 End: 08-14-2024 Departed Referred Karon Corrales MD -[facility] [employer] Start: 08-14-2024 Registered Referred Karon casillas MD -[facility] [employer] Start: 08-14-2024 End: 08-14-2024 ambulatory Karon NOVAK Facility:[facility] Start: 08-11-2024 End: 08-11-2024 Departed Referred Karon Corrales MD -[facility] [employer] Start: 08-11-2024 Registered Referred Karon casillas MD -[facility] [employer] Start: 08-11-2024 End: 08-11-2024 ambulatory Karon NOVAK Facility:[facility] Start: 08-07-2024 End: 08-07-2024 Departed Referred Carlos Cavazos -[facility] [employer] Start: 08-07-2024 Registered Referred Carlos Lópezsaviri - [facility] [employer] Start: 08-07-2024 End: 08-07-2024 ambulatory Carlos NOVAK Facility:[facility] Start: 08-04-2024 End: 08-04-[address] Monika Staley MD Work Phone: [facility] Work Phone: Start: 08-04-2024 End: 08-04-2024 Departed Referred Carlos Cavazos -[facility] [employer] Start: 08-04-2024 Registered Referred Carlos Cavazos - [facility] [employer] Start: 08-04-2024 End: 08-04-2024 ambulatory Carlos NOVAK Facility:[facility] Start: 07-31-2024 End: 07-31-[address] Monika Staley MD Work Phone: [facility] Work Phone: Start: 07-31-2024 End: 07-31-2024 Departed Referred Karon Corrales MD -[facility] [employer] Start: 07-31-2024 Registered Referred Karon casillas MD -[facility] [employer] Start: 07-31-2024 End: 07-31-2024 ambulatory Karon NOVAK Facility:[facility] Start: 07-28-2024 End: 07-28-[address] Monika Staley MD Work Phone: [facility] Work Phone: Start: 07-28-2024 End: 07-28-2024 Departed Referred Karon Corrales MD -[facility] [employer] Start: 07-28-2024 Registered Referred Karon casillas MD -[facility] [employer] Start: 07-28-2024 End: 07-28-2024 ambulatory Karon NOVAK Facility:[facility] Start: 07-25-2024 End: 07-25-[address] Monika Staley MD Work Phone: [facility] Work Phone: Start: 07-25-2024 End: 07-25-2024 Departed Referred Carlos Cavazos -[facility] [employer] Start: 07-25-2024 Registered Referred Carlos Cavazos - [facility] [employer] Start: 07-24-2024 End: 07-25-[address] Monika Staley MD Work Phone: [facility] Work Phone: Start: 07-24-2024 End: 07-24-2024 Departed Referred Karon Corrales MD -[facility] [facility] Start: 07-24-2024 Registered Referred Karon casillas MD -[facility] [facility] Start: 07-24-2024 End: 07-24-2024 ambulatory Karon NOVAK Facility:[facility] Start: 07-21-2024 End: 07-21-[address] Monika Staley MD Work Phone: [facility] Work Phone: Start: 07-21-2024 End: 07-21-2024 Departed Referred Karon Corrales MD -[facility] [place] Start: 07-21-2024 Registered Referred Karon casillas MD -[facility] [employer] Start: 07-21-2024 End: 07-21-2024 [facility] Start: 07-17-2024 End: 07-17-[address] Monika Staley MD Work Phone: [facility] Work Phone: Start: 07-17-2024 End: 07-17-2024 Departed Referred Karon Corrales MD -[facility] [facility] Start: 07-17-2024 Registered Referred Karon casillas MD -[facility] Start: 07-17-2024 End: 07-17-2024 ambulatory Carlaraynoe Hernandezinga [place] Facility:[facility] Start: 07-14-2024 End: 07-14-[address] Monika Staley MD Work Phone: [facility] Work Phone: Start: 07-14-2024 End: 07-14-2024 Departed Referred Carlos [facility] Start: 07-14-2024 Registered Referred Carlos Cavazos - [facility] Start: 07-14-2024 End: 07-14-2024 ambulatory Carlos NOVAK Facility:[facility] Start: 07-11-2024 End: 07-11-[address] Monika Staley MD Work Phone: [facility] Work Phone: Start: 07-11-2024 End: 07-11-2024 Departed Referred Carlos [facility] Start: 07-11-2024 Registered Referred Carlos Cavazos - [facility] [employer] Start: 07-11-2024 End: 07-11-2024 ambulatory Carlos NOVAK Facility:[facility] Start: 07-07-2024 End: 07-07-[address] Monika Staley MD Work Phone: [facility] Work Phone: Start: 07-07-2024 End: 07-07-2024 Departed Referred Karon Corrales MD -[facility] Start: 07-07-2024 Registered Referred [facility] [employer] Start: 07-07-2024 End: 07-07-2024 ambulatory Karon NOVAK Facility:[facility] Start: 07-03-2024 End: 07-03-[address] Monika Staley MD Work Phone: [facility] Work Phone: Start: 07-03-2024 End: 07-03-2024 Departed Referred Kvng Crisostomo MD -[facility] Start: 07-03-2024 Registered Referred Kvng Crisostomo MD -[facility] Start: 07-03-2024 End: 07-03-2024 ambulatory Kvng NOVAK Facility:[facility] Start: 06-30-2024 End: 06-30-[address] Monika Staley MD Work Phone: [facility] Work Phone: Start: 06-30-2024 End: 06-30-2024 Departed Referred Kvng Crisostomo MD -[facility] Start: 06-30-2024 Registered Referred Kvng Crisostomo MD -[facility] Start: 06-30-2024 End: 06-30-2024 ambulatory Kvng NOVAK Facility:[facility] Start: 06-26-2024 ambulatory Kvng NOVAK Fac ility:[facility] Start: 06-26-2024 Registered Referred Kvng Crisostomo MD -[facility] Start: 06-23-2024 End: 06-23-[address] Monika Staley MD Work Phone: [facility] Work Phone: Start: 06-23-2024 End: 06-23-2024 Departed Referred Carlos Cavazos [facility] Start: 06-23-2024 Registered Referred Carlos Cavazos - [facility] [employer] Start: 06-23-2024 End: 06-23-2024 ambulatory Carlos NOVAK Facility:[facility] Start: 06-19-2024 End: 06-19-[address] Monika Staley MD Work Phone: [facility] Work Phone: Start: 06-19-2024 End: 06-19-2024 Departed Referred Kvng Crisostomo MD -[facility] Start: 06-19-2024 Registered Referred Kvng Crisostomo MD -[facility] Start: 06-19-2024 End: 06-19-2024 ambulatory Kvng NOVAK Facility:[facility] Start: 06-16-2024 End: 06-16-[address] Monika Staley MD Work Phone: [facility] Work Phone: Start: 06-16-2024 End: 06-16-2024 Departed Referred Kvng Crisostomo MD -[facility] Start: 06-16-2024 Registered Referred Kvng Crisostomo MD -[facility] Start: 06-16-2024 End: 06-16-2024 ambulatory Kvng NOVAK Facility:[facility] Start: 06-12-2024 End: 06-12-[address] Monika Staley MD Work Phone: [facility] Work Phone: Start: 06-12-2024 End: 06-12-2024 Departed Referred Kvng Crisostomo MD -[facility] Start: 06-12-2024 Registered Referred Kvng Crisostomo MD -[facility] Start: 06-12-2024 End: 06-12-2024 ambulatory Kvng NOVAK Facility:[facility] Start: 06-09-2024 End: 06-09-[address] Monika Staley MD Work Phone: [facility] Work Phone: Start: 06-09-2024 End: 06-09-2024 Departed Referred Carlos Cavazos [facility] Start: 06-09-2024 Registered Referred Carlos Cavazos - [facility] Start: 06-09-2024 End: 06-09-2024 ambulatory Carlos NOVAK Facility:[facility] Start: 06-05-2024 End: 06-05-[address] Monika Staley MD Work Phone: [facility] Work Phone: Start: 06-05-2024 End: 06-05-2024 Departed Referred Kvng Crisostomo MD -[facility] Start: 06-05-2024 End: 06-05-2024 ambulatory Kvng NOVAK Facility:[facility] Start: 06-02-2024 End: 06-02-[address] Monika Staley MD Work Phone: [facility] Work Phone: Start: 06-02-2024 End: 06-02-2024 Departed Referred Kvng Crisostomo MD -[facility] Start: 06-02-2024 Registered Referred Kvng Crisostomo MD -[facility] Start: 06-02-2024 End: 06-02-2024 ambulatory Kvng NOVAK Facility:[facility] Start: 05-29-2024 End: 05-29-[address] Monika Staley MD Work Phone: [facility] Work Phone: Start: 05-29-2024 End: 05-29-2024 Departed Referred Kvng Crisostomo MD -[facility] Start: 05-29-2024 Registered Referred Kvng Crisostomo MD -[facility] Start: 05-29-2024 End: 05-29-2024 ambulatory Kvng NOVAK Facility:[facility] Start: 05-26-2024 End: 05-26-[address] Monika Staley MD Work Phone: [facility] Work Phone: Start: 05-26-2024 End: 05-26-2024 Departed Referred Carlos Cavazos [facility] Start: 05-26-2024 Registered Referred Carlos Cavazos - [facility] [employer] Start: 05-26-2024 End: 05-26-2024 ambulatory Carlos NOVAK Facility:[facility] Start: 05-22-2024 ambulatory Kvng NOVAK Fac ility:[facility] Start: 05-22-2024 Registered Referred Kvng Crisostomo MD -[facility] Start: 05-20-2024 End: 05-20-2024 Departed Referred Kvng Crisostomo MD -[facility] [employer] Start: 05-19-2024 End: 05-20-2024 ambulatory Kvng NOVAK Facility:[facility] Start: 05-19-2024 Registered Referred Kvng Crisostomo MD -[facility] Start: 05-15-2024 End: 05-15-2024 Departed Referred Kvng Crisostomo MD -[facility] [employer] Start: 05-15-2024 End: 05-15-2024 ambulatory Kvng NOVAK Facility:[facility] Start: 05-12-2024 End: 05-12-2024 Departed Referred [facility] Start: 05-12-2024 End: 05-12-2024 ambulatory Carlos NOVAK Facility:[facility] Start: 05-09-2024 End: 05-09-2024 Departed Referred Kvng Crisostomo MD -[facility] Start: 05-09-2024 End: 05-09-2024 ambulatory Elizabethmilton Andressa NOVAK Facility:[facility] Start: 05-08-2024 End: 05-08-2024 Departed Referred Kvng Crisostomo MD -[facility] Start: 05-08-2024 End: 05-08-2024 ambulatory Elizabethmilton Andressa NOVAK Facility:[facility] Start: 05-05-2024 End: 05-05-2024 Departed Referred Kvng Crisostomo MD -[facility] Start: 05-05-2024 End: 05-05-2024 ambulatory Vicentesigifredokarolmilton Andressa NOVAK Facility:[facility] Start: 05-01-2024 End: 05-01-2024 Departed Referred Kvng Crisostomo MD -[facility] Start: 05-01-2024 End: 05-01-2024 ambulatory Vicenterocio Andressa NOVAK Facility:[facility] Start: 04-28-2024 End: 04-28-2024 Departed Referred Carlos Cavazos -[facility] Start: 04-28-2024 End: 04-28-2024 ambulatory Carlos NOVAK Facility:[facility] Start: 04-24-2024 End: 04-24-2024 Departed Referred Kvng [facility] Start: 04-24-2024 End: 04-24-2024 ambulatory Elizabethmilton Andressa NOVAK Facility:[facility] Start: 04-21-2024 End: 04-21-2024 Departed Referred Carlos [facility] Start: 04-21-2024 End: 04-21-2024 ambulatory Carlos NOVAK Facility:[facility] Start: 04-17-2024 ambulatory Vicenterocio Andressa NOVAK Fac ility:[facility] Start: 04-17-2024 Registered Referred Kvng [facility] Start: 04-14-2024 ambulatory Avisgerson Andressa NOVAK Fac ility:[facility] Start: 04-14-2024 Registered Referred Kvng Crisostomo MD -[facility] [employer] Start: 04-10-2024 End: 04-10-2024 Departed Referred Kvng Crisostomo MD -[facility] Start: 04-10-2024 End: 04-10-2024 ambulatory Kvng NOVAK Facility:[facility] Start: 04-07-2024 End: 04-07-2024 Departed Referred Carlos Cavazos [facility] [employer] Start: 04-07-2024 End: 04-07-2024 ambulatory [facility] Facility:[facility] Start: 04-04-2024 ambulatory Knvg Andressa NOVAK Fac ility:[facility] Start: 04-04-2024 Registered Referred Kvng Crisostomo MD -[facility] Start: 03-31-2024 End: 03-31-2024 Departed Referred Carlos Cavazos [facility] [employer] Start: 03-31-2024 End: 03-31-2024 ambulatory [facility] Facility:[facility] Start: 03-27-2024 End: 03-27-2024 [facility] Start: 03-27-2024 End: 03-27-2024 ambulatory [facility] Facility[facility] Start: 03-24-2024 End: 03-24-2024 Departed Referred Kvng Crisostomo MD -[facility] [employer] [facility] Start: 03-24-2024 End: 03-24-2024 ambulatory Kvng NOVAK Facility:[facility] Start: 03-20-2024 End: 03-20-2024 [facility]ed [facility] Start: 03-20-2024 End: 03-20-2024 ambulatory [facility] Facility[facility] Start: 03-19-2024 End: 03-19-2024 Departed Referred Kvng Crisostomo MD -[facility] Start: 03-19-2024 End: 03-19-2024 ambulatory Elizabethmilton Jonesur [facility] Facility:[facility] Start: 03-18-2024 End: 03-18-2024 Departed Referred [facility] [employer] [facility] Start: 03-18-2024 End: 03-18-2024 ambulatory [facility] Facility[facility] Start: 03-17-2024 End: 03-17-2024 Departed Referred [facility] [employer] Start: 03-17-2024 End: 03-17-2024 ambulatory [facility] Facility[facility] Start: 03-14-2024 End: 03-14-2024 Departed Referred Carlos Abdelrahmanviri -[facility] [employer] [facility] Start: 03-14-2024 End: 03-14-2024 ambulatory Carlos NOVAK Facility:[facility] Start: 03-13-2024 End: 03-13-2024 Departed Referred [facility] Start: 03-13-2024 End: 03-13-2024 ambulatory [facility] Facility[facility] Start: 03-10-2024 End: 03-10-2024 ambulatory [facility] Facility[facility] Start: 03-06-2024 End: 03-06-2024 ambulatory [facility] Facility[facility] Start: 03-03-2024 End: 03-03-2024 ambulatory [facility] Facility[facility] Start: 02-28-2024 End: 02-28-2024 ambulatory [facility] Facility[facility] Start: 02-25-2024 End: 02-25-2024 ambulatory Carlos NOVAK Facility:[facility] Start: 02-21-2024 End: 02-21-2024 ambulatory [facility] Facility[facility] Start: 02-18-2024 End: 02-18-2024 ambulatory [facility] Facility[facility] Start: 02-14-2024 End: 02-14-2024 ambulatory [facility] Facility[facility] Start: 02-12-2024 End: 02-12-2024 ambulatory Peter Katsaros [facility] Facility:[facility] Start: 02-11-2024 End: 02-11-2024 ambulatory [facility] Facility:[facility] Start: 02-08-2024 End: 02-08-2024 ambulatory Peter Maribelsaros [facility] Facility:[facility] Start: 02-07-2024 End: 02-07-2024 ambulatory Peter Katsaros [facility] Facility:[facility] Start: 02-04-2024 End: 02-04-2024 ambulatory Peter Katsaros [facility] Facility:[facility] Start: 02-01-2024 ambulatory Peter Katsaros [facility] Faci lity:[facility] Start: 01-30-2024 End: 01-30-2024 ambulatory Peter Maribelsaros OLS Facility:[facility] Start: 01-29-2024 End: 01-29-2024 [facility] Facility:[facility] Start: 09-13-2023 End: 09-13-2023 ambulatory [facility] Start: 09-13-2023 End: 09-13-2023 Office outpatient visit 25 minutes Rebecca Buck MD Work Phone: [facility] Comment on above: Left flank pain (Christina magui Dx); BPH with urinary obstruction; History of kidney stones Start: 09-06-2023 End: 09-07-2023 ambulatory [facility] Start: 09-06-2023 End: 09-06-2023 Subsequent hospital visit by physician Rebecca Buck MD Work Phone: [facility] Imaging Comment on above: Left flank pain; Calculus of ureter Start: 08-31-2023 ambulatory Eloise Armendariz [facility] Start: 08-31-2023 Patient encounter procedure Eloise Armendariz Clinical Communication Start: 08-21-2023 Telephone encounter Rebecca Buck MD Work Phone: [facility] Clinical Communication Comment on above: CT appt Boaz advice Start: 08-21-2023 Registered Referred [facility] Start: 08-13-2023 End: 08-13-2023 ambulatory [facility] Start: 08-13-2023 End: 08-13-2023 Office outpatient new 45 minutes Rebecca Buck MD Work Phone: [facility] Comment on above: Left flank pain (Christina magui Dx); Calculus of ureter; Disease of prostate; BPH with urinary obstruction Start: 08-03-2023 End: 08-03-2023 ambulatory [facility] Work Phone: Start: 08-03-2023 End: 08-03-2023 [facility] Start: 07-20-2023 End: 07-20-2023 ambulatory [facility] Work Phone: Start: 07-20-2023 End: 07-20-2023 [facility] Start: 07-20-2023 [facility] Start: 07-18-2023 End: 07-18-2023 ambulatory [facility] Work Phone: Start: 07-18-2023 End: 07-18-2023 [facility] Start: 07-18-2023 [facility] Start: 07-16-2023 End: 07-16-2023 ambulatory [facility] Work Phone: Start: 07-16-2023 End: 07-16-2023 [facility] Start: 07-16-2023 [facility] Start: 07-13-2023 End: 07-13-2023 ambulatory [facility] Work Phone: Start: 07-13-2023 End: 07-13-2023 [facility] Start: 07-13-2023 [facility] Start: 07-12-2023 End: 07-12-2023 ambulatory [facility] Work Phone: Start: 07-12-2023 End: 07-12-2023 [facility] Start: 07-12-2023 [facility] Start: 07-05-2023 End: 07-05-2023 ambulatory [facility] Work Phone: Start: 07-05-2023 End: 07-05-2023 [facility] Start: 07-05-2023 [facility] Start: 07-02-2023 [facility] Start: 06-28-2023 End: 06-28-2023 ambulatory [facility] Work Phone: Start: 06-28-2023 End: 06-28-2023 [facility] Start: 06-28-2023 [facility] Start: 06-25-2023 Telephone encounter Rebecca Buck MD Work Phone: [facility] Start: 06-25-2023 End: 06-25-2023 ambulatory [facility] Work Phone: Start: 06-25-2023 End: 06-25-2023 [facility] Start: 06-25-2023 [facility] Start: 06-21-2023 End: 06-21-2023 ambulatory [facility] Work Phone: Start: 06-21-2023 End: 06-21-2023 [facility] Start: 06-21-2023 [facility] Start: 06-13-2023 End: 06-13-2023 ambulatory [facility] Work Phone: Start: 06-13-2023 End: 06-13-2023 [facility] Start: 06-06-2023 End: 06-06-2023 ambulatory [facility] Work Phone: Start: 06-06-2023 End: 06-06-2023 [facility] Start: 06-06-2023 [facility] Start: 05-23-2023 End: 05-23-2023 ambulatory [facility] Work Phone: Start: 05-23-2023 End: 05-23-2023 [facility] Start: 05-09-2023 End: 05-09-2023 [facility] Start: 05-09-2023 [facility] Start: 04-23-2023 End: 04-23-2023 [facility] Start: 04-09-2023 End: 04-09-2023 ambulatory [facility] Work Phone: Start: 04-09-2023 End: 04-09-2023 [facility] Start: 04-09-2023 [facility] Start: 04-02-2023 End: 04-02-2023 ambulatory [facility] Work Phone: Start: 04-02-2023 End: 04-02-2023 [facility] Start: 04-02-2023 [facility] Start: 03-26-2023 End: 03-26-2023 ambulatory [facility] Work Phone: Start: 03-26-2023 End: 03-26-2023 [facility] Start: 03-26-2023 Registered Referred [facility] [employer] Start: 03-22-2023 End: 03-22-2023 ambulatory [facility] Work Phone: Start: 03-22-2023 End: 03-22-2023 [facility] Start: 03-22-2023 Reg[facility] Start: 03-08-2023 End: 03-08-2023 ambulatory [facility] Work Phone: Start: 03-08-2023 End: 03-08-2023 [facility] Start: 02-22-2023 End: 02-22-2023 ambulatory [facility] Work Phone: Start: 02-22-2023 End: 02-22-2023 [facility] Start: 02-22-2023 Reg[facility] Start: 02-15-2023 End: 02-15-2023 ambulatory [facility] Work Phone: Start: 02-15-2023 End: 02-15-2023 [facility] Start: 02-15-2023 [facility] Start: 02-08-2023 End: 02-08-2023 ambulatory [facility] Work Phone: Start: 02-08-2023 End: 02-08-2023 [facility] Start: 01-31-2023 End: 01-31-2023 ambulatory [facility] Work Phone: Start: 01-31-2023 End: 01-31-2023 [facility] Start: 01-31-2023 Reg[facility] Start: 01-29-2023 End: 01-29-2023 [facility] Start: 01-29-2023 Registered Referred [facility] Start: 01-26-2023 End: 01-26-2023 [facility] Start: 01-26-2023 Registered Referred [facility] [employer] Start: 01-24-2023 End: 01-24-2023 [facility] Start: 01-24-2023 Reg[facility] Start: 01-22-2023 End: 01-22-2023 ambulatory [facility] Work Phone: Start: 01-22-2023 End: 01-22-2023 [facility] Start: 01-22-2023 Reg[facility] Start: 01-10-2023 End: 01-10-2023 ambulatory [facility] Work Phone: Start: 01-10-2023 End: 01-10-2023 [facility] Start: 01-10-2023 Reg[facility] Start: 12-27-2022 End: 12-27-2022 ambulatory [facility] Work Phone: Start: 12-27-2022 End: 12-27-2022 [facility] Start: 12-27-2022 Reg[facility] Start: 12-21-2022 End: 12-21-2022 ambulatory [facility] Work Phone: Start: 12-21-2022 End: 12-21-2022 [facility] Start: 12-21-2022 Registered [facility] Start: 12-14-2022 End: 12-14-2022 ambulatory [facility] Work Phone: Start: 12-14-2022 End: 12-14-2022 [facility] Start: 12-14-2022 [facility] Start: 12-07-2022 End: 12-07-2022 ambulatory [facility] Work Phone: Start: 12-07-2022 End: 12-07-2022 [facility] Start: 12-07-2022 Reg[facility] Start: 11-24-2022 End: 11-24-2022 ambulatory [facility] Work Phone: Start: 11-24-2022 End: 11-24-2022 [facility] Start: 11-24-2022 Reg[facility] Start: 11-23-2022 End: 11-23-2022 ambulatory [facility] Work Phone: Start: 11-23-2022 End: 11-23-2022 [facility] Start: 11-23-2022 [facility] Start: 11-22-2022 End: 11-22-2022 ambulatory [facility] Work Phone: Start: 11-22-2022 End: 11-22-2022 [facility] Start: 11-22-2022 [facility]istered [facility] Start: 11-09-2022 End: 11-09-2022 ambulatory [facility] Work Phone: Start: 11-09-2022 End: 11-09-2022 [facility] Start: 11-09-2022 Registered Referred [facility] Start: 10-26-2022 End: 10-26-2022 Departed Referred [facility] Start: 10-26-2022 [facility]istered [facility] Start: 10-12-2022 End: 10-12-2022 ambulatory [facility] Work Phone: Start: 10-12-2022 End: 10-12-2022 Departed Referred [facility] Start: 10-12-2022 Registered Referred [facility] Start: 10-05-2022 End: 10-05-2022 Departed Referred [facility] Start: 10-05-2022 Registered Referred [facility] Start: 09-28-2022 End: 09-28-2022 ambulatory [facility] Work Phone: Start: 09-28-2022 End: 09-28-2022 Departed Referred [facility] Start: 09-14-2022 End: 09-14-2022 Departed Referred [facility] Start: 08-31-2022 End: 08-31-2022 [facility] Start: 08-31-2022 Registered Referred [facility] Start: 08-23-2022 End: 08-23-2022 ambulatory [facility] Work Phone: Start: 08-23-2022 End: 08-23-2022 [facility] Start: 08-23-2022 Registered Referred [facility] Start: 08-17-2022 End: 08-17-2022 ambulatory [facility] Work Phone: Start: 08-17-2022 End: 08-17-2022 [facility] Start: 08-17-2022 [facility] Start: 08-14-2022 End: 08-14-2022 ambulatory [facility] Work Phone: Start: 08-14-2022 End: 08-14-2022 Departed Referred [facility] Start: 08-14-2022 [facility] Start: 07-31-2022 End: 07-31-2022 ambulatory [facility] Work Phone: Start: 07-31-2022 End: 07-31-2022 [facility] Start: 07-31-2022 [facility] Start: 07-24-2022 End: 07-24-2022 ambulatory [facility] Work Phone: Start: 07-24-2022 End: 07-24-2022 Departed Referred [facility] Start: 07-24-2022 [facility]istered [facility] Start: 07-20-2022 End: 07-20-2022 Departed Referred [facility] Start: 07-20-2022 [facility]istered [facility] Start: 07-17-2022 End: 07-17-2022 [facility]ed [facility] Start: 07-17-2022 Registered [facility] Start: 07-11-2022 Registered [facility] Start: 07-10-2022 End: 07-10-2022 ambulatory [facility] Work Phone: Start: 07-10-2022 End: 07-10-2022 Departed [facility] Start: 07-10-2022 [facility] Start: 07-03-2022 End: 07-03-2022 ambulatory [facility] Work Phone: Start: 07-03-2022 End: 07-03-2022 [facility] Start: 07-03-2022 [facility]istered [facility] Start: 06-27-2022 End: 06-27-2022 ambulatory [facility] Work Phone: Start: 06-27-2022 End: 06-27-2022 [facility] Start: 06-27-2022 Registered [facility] Start: 06-13-2022 End: 06-13-2022 ambulatory [facility] Work Phone: Start: 06-13-2022 End: 06-13-2022 [facility] Start: 06-13-2022 Registered [facility] Start: 06-06-2022 End: 06-06-2022 ambulatory [facility] Work Phone: Start: 06-06-2022 End: 06-06-2022 [facility] Start: 06-06-2022 [facility]istered [facility] Start: 05-30-2022 End: 05-30-2022 ambulatory [facility] Work Phone: Start: 05-30-2022 End: 05-30-2022 [facility] Start: 05-30-2022 Registered [facility] Start: 05-16-2022 End: 05-16-2022 ambulatory [facility] Work Phone: Start: 05-16-2022 End: 05-16-2022 [facility] Start: 05-16-2022 Registered Ref[facility] Start: 05-02-2022 End: 05-02-2022 ambulatory [facility] Work Phone: Start: 05-02-2022 End: 05-02-2022 Departed Referred [facility] Start: 05-02-2022 Registered Referred [facility] Start: 04-27-2022 End: 04-27-2022 ambulatory [facility] Work Phone: Start: 04-27-2022 End: 04-27-2022 Departed Referred [facility] Start: 04-27-2022 Registered Referred [facility] Start: 04-26-2022 End: 04-26-2022 ambulatory [facility] Work Phone: Start: 04-26-2022 End: 04-26-2022 Departed Referred [facility] Start: 04-11-2022 End: 04-11-2022 ambulatory [facility] Work Phone: Start: 04-11-2022 End: 04-11-2022 Departed Referred [facility] Start: 03-28-2022 End: 03-28-2022 Departed Referred [facility] Start: 03-28-2022 [facility]istered [facility] Start: 03-23-2022 End: 03-23-2022 [facility]arted [facility] Start: 03-23-2022 Registered [facility] Start: 03-16-2022 End: 03-16-2022 ambulatory [facility] Work Phone: Start: 03-16-2022 End: 03-16-2022 Departed [facility] Start: 03-16-2022 [facility] Start: 03-09-2022 End: 03-09-2022 ambulatory [facility] Work Phone: Start: 03-09-2022 End: 03-09-2022 [facility] Start: 03-09-2022 Registered Referred [facility] Start: 03-06-2022 End: 03-06-2022 ambulatory [facility] Work Phone: Start: 03-06-2022 End: 03-06-2022 Departed Referred [facility] Start: 03-06-2022 Registered Referred [facility] Start: 03-02-2022 End: 03-03-2022 Emergency department patient visit UNKNOWN PROVIDER [facility] Start: 03-02-2022 End: 03-02-2022 Emergency department patient visit Lanette Charli JIMENEZ Work Phone: [facility] Emergency Dept Comment on above: Fall, initial encoun ter (Primary Dx); Anticoagulated Start: 02-20-2022 End: 02-20-2022 Departed Referred [facility] Start: 02-20-2022 [facility] Start: 02-13-2022 End: 02-13-2022 ambulatory [facility] Work Phone: Start: 02-13-2022 End: 02-13-2022 Departed [facility] Start: 02-13-2022 Registered Referred [facility] Start: 02-06-2022 End: 02-06-2022 ambulatory [facility] Work Phone: Start: 02-06-2022 End: 02-06-2022 Departed [facility]erred [facility] Start: 02-06-2022 Registered Referred [facility] Start: 01-30-2022 End: 01-30-2022 [facility] Start: 01-30-2022 [facility] Start: 01-26-2022 End: 01-26-2022 ambulatory [facility] Work Phone: Start: 01-26-2022 End: 01-26-2022 [facility] Start: 01-26-2022 [facility] Start: 01-19-2022 End: 01-19-2022 ambulatory [facility] Work Phone: Start: 01-19-2022 End: 01-19-2022 [facility] Start: 01-19-2022 [facility] Start: 01-17-2022 ambulatory [facility] Start: 01-10-2022 [facility] Start: 01-10-2022 End: 01-10-2022 ambulatory [facility] Work Phone: Start: 01-10-2022 End: 01-10-2022 [facility]ed [facility] Start: 01-10-2022 [facility] Start: 01-06-2022 AUDIT Monika melvin Work Phone: [facility] Work Phone: Start: 01-05-2022 End: 01-05-2022 [facility]ed [facility] Start: 01-05-2022 [facility] Start: 12-30-2021 End: 12-30-2021 [facility]ed [facility] Start: 12-30-2021 [facility] Start: 12-28-2021 End: 12-28-2021 ambulatory [facility] Work Phone: Start: 12-28-2021 End: 12-28-2021 Departed Referred [facility] Start: 12-28-2021 Registered Referred [facility] Start: 12-26-2021 End: 12-26-2021 ambulatory [facility] Work Phone: Start: 12-26-2021 End: 12-26-2021 Departed [facility] Start: 12-26-2021 Registered Referred [facility] Start: 12-22-2021 End: 12-22-2021 ambulatory [facility] Work Phone: Start: 12-22-2021 End: 12-22-2021 Departed Referred [facility] Start: 12-22-2021 Registered Referred [facility] Start: 12-22-2021 End: 12-22-2021 [facility] Start: 12-21-2021 End: 12-22-2021 Emergency department patient visit Sharon Gonzalez MD Work Phone: [facility] Emergency Dept Comment on above: Heel ulceration, lef t, with unspecified severity (HCC) (Primary Dx) Start: 12-19-2021 End: 12-19-2021 ambulatory [facility] Work Phone: Start: 12-19-2021 End: 12-19-2021 [facility] Start: 12-19-2021 Registered Referred [facility] Start: 12-12-2021 End: 12-12-2021 ambulatory [facility] Work Phone: Start: 12-12-2021 End: 12-12-2021 Departed Referred [facility] Start: 12-12-2021 [facility] Start: 12-08-2021 End: 12-08-2021 ambulatory [facility] Work Phone: Start: 12-08-2021 End: 12-08-2021 [facility]ed [facility] Start: 12-08-2021 [facility] Start: 12-05-2021 End: 12-05-2021 ambulatory [facility] Work Phone: Start: 12-05-2021 End: 12-05-2021 [facility]ed [facility] Start: 12-05-2021 [facility]istered [facility] Start: 12-01-2021 End: 12-01-2021 [facility]ed [facility] Start: 12-01-2021 [facility] Start: 11-28-2021 End: 11-28-2021 [facility] Start: 11-28-2021 Registered [facility] Start: 11-25-2021 Rx Renewal Monika Elias rt Work Phone: [facility] Work Phone: Start: 11-23-2021 End: 11-23-2021 Departed [facility] Start: 11-23-2021 Registered [facility] Start: 11-22-2021 End: 11-22-2021 [facility] Start: 11-22-2021 Registered [facility] Start: 11-21-2021 End: 11-21-2021 [facility]ed [facility] Start: 11-15-2021 AUDIT Shiela Stua rt Work Phone: [facility] Work Phone: Start: 11-14-2021 End: 11-14-2021 Departed Referred [facility] Start: 11-14-2021 Registered Referred [facility] Start: 11-08-2021 End: 11-08-2021 Departed Referred [facility] Start: 11-08-2021 Registered Referred [facility] Start: 11-04-2021 End: 11-04-2021 Departed Referred [facility] Start: 11-04-2021 Registered Referred [facility] Start: 10-31-2021 End: 11-01-2021 Emergency department patient visit UNKNOWN PROVIDER [facility] Start: 10-31-2021 End: 11-01-2021 Emergency department patient visit Dante Kim MD Work Phone: [facility] Emergency Dept Comment on above: Other fatigue (Prima ry Dx) Start: 10-31-2021 End: 10-31-2021 Departed Referred [facility] Start: 10-21-2021 End: 10-29-2021 Evaluation and management of inpatient UNKNOWN PROVIDER [facility] Start: 10-21-2021 End: 10-29-2021 Evaluation and management of inpatient Lisajames Michelle Work Phone: [facility] Comment on above: Leg swelling (Primar y Dx); Acute deep vein thrombosis (DVT) of proximal vein of lower extremity, unspecified laterality (HCC) Start: 10-20-2021 End: 10-20-2021 Departed Referred [facility] Start: 10-17-2021 Telephone encounter Nicole davis MD Work Phone: [facility] Comment on above: Missed Appointment Start: 09-19-2021 End: 09-19-2021 [facility] Start: 11-02-2020 AUDIT Monika Elias rt Work Phone: [facility] Work Phone: Start: 10-27-2020 AUDIT Monika Elias rt Work Phone: [facility] Work Phone: Start: 07-13-2020 Patient encounter procedure Monika Staley [facility] Work Phone: Start: 04-13-2020 Patient encounter procedure Wing Nunezterson [facility] Work Phone: Start: 04-07-2020 Patient encounter procedure Wing Ritter [facility] Work Phone: Start: 03-18-2020 Patient encounter procedure Wing Ritter [facility] Work Phone: Start: 01-20-2020 Patient [...] Start: 10-26-2021 Electroencephalogram w/rec awake&asleep Sarina Pineda [employer] Work Phone: Start: 10-26-2021 Ct head/brain w/o co ntrast material Sarina Pineda [employer] Work Phone: Start: 10-26-2021 Prothrombin time Andres Sheridan MD Work Phone: Start: 10-25-2021 Speech and language therapy regime Sarina Pineda [employer] Work Phone: Start: 10-25-2021 Prothrombin time Andres [...] count reticulo cyte automated Ellen Massey Niesha [employer] Work Phone: Start: 10-21-2021 C-reactive protein Loua juan c Massey Niesha [employer] Work Phone: Start: 10-21-2021 Non-invas physiologi c std extremity art 2 level Shruthi Frenchacre [employer] Work Phone: Start: 10-21-2021 Radex calcaneus mini mum 2 views Shruthi Frenchacre [employer] Work Phone: Start: 10-21-2021 Dup-scan xtr veins [...] Speci men Type: BLOOD SPECIMENOrdering Facility: [facility] Address: [address] [place], [place] [id number] Performed By: #### T SCR ####[facility] [id number] [address] Start: 08-04-2021 Antibody screen Comment on above: Order Comment: Speci men Type: BLOOD SPECIMENOrdering Facility: [facility] Address: [address] [place] [address] Performed By: #### T SCR ####[facility] BLOOD BANKCLIA [id number] [address] Start: 08-01-2021 Antibody screen Comment on above: Order Comment: Speci men Type: BLOOD SPECIMENOrdering Facility: [facility] Address: [address] [place] [address] Performed By: #### T SCR ####[facility] BLOOD BANKCLIA [id number] [address] Start: 06-07-2021 Antibody screen Comment on above: Order Comment: Speci men Type: BLOOD SPECIMEN Performed By: #### T SCR ####[facility] BLOOD BANKCLIA [id number] [address] Start: 09-02-2020 Lipid 1996 panel - [...] DTaP/Tdap/Td Vaccines (2 - Td or Tdap) [facility] Start: 09-02-2025 Lipid panel Lipid Panel [facility] Start: 08-22-2024 DIABETES SCREEN DIABETES SCREEN [facility] Start: 12-04-2023 Lipid panel Lipids [facility] Start: 12-04-2023 Lipid screen Lipid screen [facility] Work Phone: Start: 09-13-2023 End: 09-13-2023 Patient encounter procedure 09/13/2023 11:30 AM EDT Office Visit [facility] Urology [address] [facility] [address] [place] [id number] Rebecca Buck MD [address] [facility] [address] [place] [address] [facility] Start: 08-31-2023 End: 08-31-2023 Patient encounter procedure 08/31/2023 9:30 AM EDT Appointment [facility] Imaging [address] [place] [id number] Rebecca Buck MD [address] [id number] [facility] [address] Imaging Start: 08-13-2023 End: 08-12-2024 Basic metabolic 1998 panel - Serum or Plasma Basic metabolic panel Lab Routine Calculus of ureter Expected: 08/13/2023 (Approximate), Expires: 08/12/2024 [facility] Comment on above: Expected: 08/13/2023 (Approximate), Expires: 08/12/2024 Start: 08-13-2023 End: 08-12-2024 CT Abdomen WO contrast CT abdomen pelvis wo IV contrast Imaging Routine Left flank pain Calculus of ureter Expected: 08/13/2023, Expires: 08/12/2024 [facility] Comment on above: Expected: 08/13/2023 , Expires: 08/12/2024 Start: 08-13-2023 End: 02-12-2024 PSA, Monitoring ([facility]) PSA, Monitoring ([facility]) Lab Routine Disease of prostate Expected: 08/13/2023 (Approximate), Expires: 02/12/2024 [facility] Work Phone: Comment on above: Expected: 08/13/2023 (Approximate), Expires: 02/12/2024 Start: 08-13-2023 End: 08-13-2023 Patient encounter procedure 08/13/2023 10:00 AM EDT Office Visit [facility] Urology [address] [place] [phone] Rebecca Buck MD [address] [place], [place] [id number] [facility] Start: 07-17-2023 Bacteria identified in Urine by Culture [facility] Start: 07-17-2023 [facility] Start: 07-16-2023 Measurement of substance [facility] Start: 05-07-2023 Medicare Advantage A nnual Wellness Visit Medicare Advantage Annual Wellness Visit [facility] Start: 03-02-2023 Creatinine measurement Creatinine Le carmela [facility] Start: 03-02-2023 Potassium measurement Potassium Leve l [facility] Start: 08-22-2022 Diabetes mellitus screening Diabetes Screening [facility] Start: 01-05-2022 Influenza vaccination [facility] Start: 12-23-2021 EPV, Provider: Wing Ritter, Status: Pen, Time: 9:30 AM EPV, Provider: Wing Ritter, Status: Pen, Time: 9:30 AM [id number] Work Phone: Start: 12-05-2021 Influenza vaccination Flu vaccine (# [address]) [facility] Start: 12-05-2021 Blood chemistry [facility] Work Phone: Start: 12-05-2021 Complete blood count [facility] Work Phone: Start: 12-05-2021 [facility] Work Phone: Start: 12-01-2021 [facility] Work Phone: Start: 08-05-2021 COVID-19 VACCINE (4 - Booster for Moderna series) COVID-19 VACCINE (4 - Booster for Moderna series) [facility] Start: 08-05-2021 COVID-19 Vaccine (4 - Booster for Pfizer series) COVID-19 Vaccine (4 - Booster for Pfizer series) [facility] Start: 06-01-2021 COVID-19 Vaccine (4 - Booster for Pfizer series) COVID-19 Vaccine (4 - Booster for Pfizer series) [facility] Start: 05-07-2021 ADVANCE DIRECTIVE DISCUSSION ADVANCE DIRECTIVE DISCUSSION [facility] Start: 08-11-2020 Screening for malign ant neoplasm of colon [facility] Start: 07-30-2020 Screening for malign ant neoplasm of colon [facility] Start: 01-20-2020 Echocardiography Echocardiogram [facility] [address] [place] Work Phone: Start: 01-06-2020 Influenza vaccination INFLUENZA (#1) [facility] Start: 12-04-2019 Annual Wellness Visi t (AWV) Annual Wellness Visit (AWV) [facility] Start: 12-04-2019 Creatinine monitoring Creatinine mon itoring [facility] Work Phone: Start: 12-04-2019 Hepatitis C screen Hepatitis C scree n [facility] Work Phone: Comment on above: Postponed from 05/06 (Patient Refused) Start: 12-04-2019 Potassium monitoring Potassium monit oring [facility] Work Phone: Start: 12-04-2019 Prostate specific an tigen measurement Prostate Specific Antigen (PSA) Screening or Monitoring [facility] Start: 12-04-2019 Shingles Vaccine (1 of 2) Day gles Vaccine (1 of 2) [facility] Work Phone: Comment on above: Postponed from 05/06 (Patient Refused) Start: 06-07-2019 Colon Cancer Screen FIT/FOBT [facility] Work Phone: Start: 08-14-2017 LIPID SCREEN LIPID SCREEN [facility] Start: 2017 ADVANCE DIRECTIVE DISCUSSION ADVANCE DIRECTIVE DISCUSSION [facility] Start: 2017 PNEUMOCOCCAL: 65+ (1 - PCV) PNEUMOCOCCAL: 65+ (1 - PCV) [facility] Start: 2017 PNEUMOVAX AGE 65 AND OVER WITH 5YR LOOKBACK (#1) PNEUMOVAX AGE 65 AND OVER WITH 5YR LOOKBACK (#1) [facility] Start: 04-14-2016 DIABETES SCREEN DIABETES SCREEN [facility] Start: 2012 RSV Immunization age d 60 or older (1 - 1-dose 60+ series) RSV Immunization aged 60 or older (1 - 1-dose 60+ series) [facility] Start: 2007 PROSTATE CANCER SCRE ENING DISCUSSION PROSTATE CANCER SCREENING DISCUSSION [facility] Start: 2002 Shingles vaccine (1 of 2) Day gles vaccine (1 of 2) [facility] Start: 2002 SHINGRIX VACCINE (1 of 2) DAY GRIX VACCINE (1 of 2) [facility] Start: 2002 Tuberculosis screening COLOREC MONIQUE CANCER SCREENING,SEE MODIFIER [facility] Start: 2002 Zoster Vaccines (1 of 2) Zoste r Vaccines (1 of 2) [facility] Start: 1997 COLOGUARD (FIT-DNA) COLOGUARD (FIT-D NA) [facility] Start: 1997 Colonoscopy COLONOSCOPY [facility] Start: 1997 COLORECTAL CANCER SCREENING COLORECTAL CANCER SCREENING [facility] Start: [address] COLONOGRAPHY [facility] Start: 1997 FECAL OCCULT BLOOD FECAL OCCULT BLOO D [facility] Start: 1997 Screening for malign ant neoplasm of colon [facility] Start: 1997 SIGMOIDOSCOPY SIGMOIDOSCOPY [facility] Start: 1987 Diabetes screen Diabetes screen [facility] Start: 1971 Urine microalbumin profile DTAP,TDAP,TD (1 - Tdap) [facility] Start: 1970 ANNUAL PCP TEAM COOK FISH AND CHIPS KEESHA DISEASE VISIT ANNUAL PCP TEAM CHRONIC DISEASE VISIT [facility] Start: 1970 BP CONTROLLED (<130/80) BP CONTROLLE D (<130/80) [facility] Start: 1970 Diabetes mellitus screening Diabetes Screening [facility] Start: 1970 HEPATITIS C SCREENING HEPATITIS C JOBY VILLARREAL [facility] Start: 1970 Hepatitis C screening S [facility] Start: 1964 Adult depression screening assessment DEPRESSION SCREENING [facility] Start: 1964 Depression Screen Depression Screen [facility] Start: 1962 Diabetic foot examination Diabetes: Foot Exam [facility] Start: 1962 Glaucoma screening Diabetes: R etinopathy Screening [facility] Start: 1962 Preventive dental service Diabetes: Dental Exam [facility] Start: 1952 Echocardiography Echocardiogram [facility] Start: 1952 Hemoglobin A1c measurement Diabetes: Hemoglobin A1C [facility] Start: 1952 Lipid panel Lipid Panel [facility] Start: 1952 Screening for malign ant neoplasm of colon [facility] Bacteria identified in Urine by Culture Urine Culture [facility] Work Phone: End: 03-02-2022 CBC W Auto Differential panel - Blood CBC with Auto Differential Lab Routine One Time for 1 Occurrences starting 03/02/2022 until 03/02/2022 [facility] Work Phone: Comment on above: One Time for 1 Occur rences starting 03/02/2022 until 03/02/2022 End: 03-02-2022 Comprehensive metabolic 2000 panel - Serum or Plasma Comprehensive Metabolic Panel Lab STAT One Time for 1 Occurrences starting 03/02/2022 until 03/02/2022 [facility] Work Phone: Comment on above: One Time for 1 Occur rences starting 03/02/2022 until 03/02/2022 End: 09-06-2023 CT Abdomen WO contrast [facility] Work Phone: Comment on above: Once for 1 Occurrenc es starting 09/06/2023 until 09/06/2023 End: 12-22-2021 Culture, Blood 2 Culture, Blood 2 Microbiology STAT One Time for 1 Occurrences starting 12/22/2021 until 12/22/2021 [facility] Work Phone: Comment on above: One Time for 1 Occur rences starting 12/22/2021 until 12/22/2021 End: 12-22-2021 Microscopic examination of blood, culture Culture, Blood Microbiology STAT One Time for 1 Occurrences starting 12/22/2021 until 12/22/2021 [facility] Work Phone: Comment on above: One Time for 1 Occur rences starting 12/22/2021 until 12/22/2021 Microscopic examinat ion of blood, culture Culture, Blood Microbiology STAT 12/22/2021 12:22 AM EDT [facility] Work Phone: Oxygen therapy [[facility] Data Set] Initiate Oxygen Therapy Protocol Respiratory Care Routine As Needed until discontinued starting 10/21/[address] [facility] Comment on above: As Needed until disc ontinued starting 10/21/2021 Protime-INR Protime-INR Lab Routine Daily until discontinued starting 10/23/2021, [address] [facility] Work Phone: Comment on above: Daily until disconti nued starting 10/23/2021, 7 completed End: 03-02-2022 Protime-INR Protime-INR Lab Routine One Time for 1 Occurrences starting 03/02/2022 until 03/02/[address] [facility] Work Phone: Comment on above: One Time for 1 Occur rences starting 03/02/2022 until 03/02/2022 Spirometry panel Incentive stef metry Respiratory Care Routine Daily until discontinued starting 10/21/[address] [facility] Work Phone: Comment on above: Daily until disconti nued starting 10/21/2021 End: 10-21-2021 Wound ostomy eval Wound ostomy eval Wound Ostomy Routine One Time for 1 Occurrences starting 10/21/2021 until 10/21/[address] [facility] Work Phone: Comment on above: One Time for 1 Occur rences starting 10/21/2021 until 10/21/2021 [facility] NEGATED: Highlighted row has been ruled out! Planned Goals not documented [facility] Work Phone: Immunizations Immunization Date Immunization [...] 02-08-2015 influenza virus vacc ine, unspecified formulation Sairka [facility]END[facility] Work Phone: 02-04-2013 pneumococcal Conjuga te, unspecified formulation Sarika [facility] Work Phone: Payers Date Payer Category Payer Unknown [id number] 01-29-2024 Self-pay 01-05-2022 Medicaid 01-05-2022 Medicare 01-05-2022 Medicare [id number] 10-05-2021 Medicaid [id number] 06-07-2021 Medicare UHC MEDICARE UHC DUAL COMPLETE HMO SNP [id number] 06/07/2021-Present [phone] [address] [place] [address] Medicare [id number] [id number] 06-07-2021 Medicare UHC MEDICARE [employer] DUAL COMPLETE [id number] 06/07/2021-Present [phone] [address] [place] [address] [id number]. [id number] 11-05-2019 Medicare UHC AARP MEDICAR E [facility] AARP MEDICARE O [id number] 11/05/2019-Present O [id number]. 2.7.3.123059.315 07-06-2015 Medicare UHC MEDICARE UHC MEDICARE COMPLETE xxxxxxxxx 2015-Present xxxxxxxxx [id number]. 2.7.3.293025.315 1950 Unknown [id number] 2.16.840.1.888262.3.579. 2.668 1950 Unknown [id number] 2.16.840.1.078897.3.579. 2.668 1950 Unknown [id number] 2.16.840.1.904430.3.579. 2.668 1950 Unknown [id number] 2.16.840.1.635437.3.579. 2.668 1950 Unknown [id number] 2.16.840.1.577715.3.579. 2.668 1952 Unknown [id number] 2.16.840.1.832120.3.579. 2.668 1950 Unknown [id number] 2.16.840.1.972861.3.579. 2.668 Private Health Insurance Unknown Unknown [id number] 2.16.840.1.507451.3.579. 2.462 Unknown [id number] 2.16.840.1.171294.3.579. 2.462 Unknown [id number] 2.16.840.1.490128.3.579. 2.462 Unknown [id number] 2.16.840.1.106829.3.579. 2.462 Unknown [id number] 2.16.840.1.576722.3.579. 2.462 Unknown [id number] 2.16.840.1.653895.3.579. 2.462 Unknown [id number] 2.16.840.1.619668.3.579. 2.462 Unknown [id number] 2.16.840.1.776791.3.579. 2.462 Unknown [id number] 2.16.840.1.811483.3.579. 2.462 Unknown [id number] 2.16.840.1.886531.3.579. 2.462 Unknown [id number] 2.16.840.1.685072.3.579. 2.462 Unknown [id number] 2.16.840.1.574500.3.579. 2.462 Unknown [id number] 2.16.840.1.226641.3.579. 2.462 Unknown [id number] 2.16.840.1.042505.3.579. 2.462 Unknown [id number] 2.16.840.1.814467.3.579. 2.462 Unknown [id number] 2.16.840.1.284252.3.579. 2.462 Unknown [id number] 2.16840.1.717912.3.579. 2.462 Unknown [id number] 2.16.840.1.964732.3.579. 2.462 Unknown [id number] 2.16.840.1.450671.3.579. 2.462 Unknown [id number] 2.16.840.1.510038.3.579. 2.462 Unknown [id number] 2.16.840.1.897855.3.579. 2.462 Unknown [id number] 2.16.840.1.750224.3.579. 2.462 Unknown [id number] 2.16.840.1.532358.3.579. 2.462 Unknown [id number] 2.16.840.1.651249.3.579. 2.462 Unknown [id number] 2.16.840.1.863934.3.579. 2.462 Unknown [id number] 2.16.840.1.787778.3.579. 2.462 Unknown [id number] 2.16.840.1.117842.3.579. 2.462 Unknown [id number] 2.16.840.1.146552.3.579. 2.462 Unknown [id number] 2.16.840.1.880342.3.579. 2.462 Unknown [id number] 2.16.840.1.920747.3.579. 2.462 Unknown [id number] 2.840.1.987634.3.579. 2.462 Unknown [id number] 2.840.1.443836.3.579. 2.462 Unknown [id number] .840.1.528563.3.579. 2.462 Unknown [id number] 2.840.1.224856.3.579. 2.462 Unknown [id number] 2.840.1.067961.3.579. 2.462 Unknown [id number] 2.840.1.126739.3.579. 2.462 Unknown [id number] 2.840.1.040160.3.579. 2.462 Unknown [id number] 2.840.1.138421.3.579. 2.462 Unknown [id number] .840.1.255955.3.579. 2.462 Unknown [id number] 2.840.1.523132.3.579. 2.462 Unknown [id number] .840.1.387717.3.579. 2.462 Unknown [id number] 2.840.1.849818.3.579. 2.462 Unknown [id number] 2.840.1.345732.3.579. 2.462 Unknown [id number] 2..840.1.339612.3.579. 2.462 Unknown [id number] 2.840.1.622292.3.579. 2.462 Unknown [id number] 2.16.840.1.550508.3.579. 2.462 Unknown [id number] 2.16.840.1.130105.3.579. 2.462 Unknown [id number] 2.16.840.1.787064.3.579. 2.462 Unknown [id number] 2.16.840.1.535276.3.579. 2.462 Unknown [id number] 2.16.840.1.451536.3.579. 2.462 Unknown 27647573 2.16.840.1.756513.3.579. 2.462 Unknown [id number] 2.16.840.1.873505.3.579. 2.462 Unknown 64608017 2.840.1.013536.3.579. 2.462 Unknown 75495931 2.840.1.905886.3.579. 2.462 Unknown [id number] 2.16.840.1.200574.3.579. 2.462 Unknown 58809018 2..840.1.421572.3.579. 2.462 Unknown 83721334 2.840.1.410177.3.579. 2.462 Unknown 06973469 2.16840.1.100764.3.579. 2.462 Unknown 54710800 2.16.840.1.753106.3.579. 2.462 Unknown 55174856 2.16.840.1.025720.3.579. 2.462 Unknown 15344887 2.16.840.1.252099.3.579. 2.462 Unknown 74327287 2.16.840.1.955738.3.579. 2.462 Unknown [id number] 2.16.840.1.935822.3.579. 2.462 Unknown [id number] 2.16.840.1.759606.3.579. 2.462 Unknown [id number] 2.16.840.1.389878.3.579. 2.462 Unknown [id number] 2.16.840.1.536788.3.579. 2.462 Unknown [id number] 2.16.840.1.879315.3.579. 2.462 Unknown [id number] 2.16.840.1.905955.3.579. 2.462 Unknown [id number] 2.16.840.1.190631.3.579. 2.462 Unknown [id number] 2.16.840.1.563078.3.579. 2.462 Unknown 11731359 2..840.1.468863.3.579. 2.462 Unknown 87178086 2.16.840.1.426199.3.579. 2.462 Unknown 06686885 2.16.840.1.980379.3.579. 2.462 Unknown [id number] 2.16.840.1.274978.3.579. 2.462 Unknown 89160224 2.16.840.1.881383.3.579. 2.462 Unknown 19307322 2.16.840.1.349856.3.579. 2.462 Unknown 60297363 2.16.840.1.283456.3.579. 2.462 Unknown 25103937 2.16.840.1.323279.3.579. 2.462 Unknown 99662776 2.16.840.1.249556.3.579. 2.462 Unknown [id number] 2.16.840.1.733013.3.579. 2.462 Unknown 80847322 2.16.840.1.997274.3.579. 2.462 Unknown 37808041 2.16.840.1.364704.3.579. 2.462 Unknown 02244079 2.16.840.1.563227.3.579. 2.462 Unknown [id number] 2.16.840.1.012852.3.579. 2.462 Unknown [id number] 2.16.840.1.352483.3.579. 2.462 Unknown [id number] 2.16.840.1.113661.3.579. 2.462 Unknown 45512298 2.16.840.1.582580.3.579. 2.462 Unknown 70830172 2..840.1.639850.3.579. 2.462 Unknown 04337203 2.840.1.839705.3.579. 2.462 Unknown 73620361 2.840.1.480995.3.579. 2.462 Unknown 08606655 2.840.1.677835.3.579. 2.462 Unknown 06425222 2.840.1.772784.3.579. 2.462 Unknown 64717813 2.840.1.419527.3.579. 2.462 Unknown 22055006 2.840.1.307337.3.579. 2.462 Unknown 60234141 2.840.1.383693.3.579. 2.462 Unknown 04580267 2.840.1.294461.3.579. 2.462 Unknown 93523273 2.16840.1.571384.3.579. 2.462 Unknown 74195607 2.16840.1.279882.3.579. 2.462 Unknown 52352046 2.16840.1.993350.3.579. 2.462 Unknown 97946012 2.16.840.1.650122.3.579. 2.462 Unknown 30207065 2.16.840.1.667232.3.579. 2.462 Unknown 89129876 2.16.840.1.058613.3.579. 2.462 Unknown 89590143 2.16.840.1.844193.3.579. 2.462 Unknown 13159704 2.16.840.1.301451.3.579. 2.462 Unknown 27762378 2.16.840.1.406124.3.579. 2.462 Unknown [id number] 2.16.840.1.813515.3.579. 2.462 Unknown [id number] 2.16.840.1.072289.3.579. 2.462 Unknown [id number] 2.16.840.1.616445.3.579. 2.462 Unknown [id number] 2.16.840.1.263693.3.579. 2.462 Unknown [id number] 2.16.840.1.222061.3.579. 2.462 Unknown [id number] 2.16.840.1.423989.3.579. 2.462 Unknown [id number] 2.16.840.1.588711.3.579. 2.462 Unknown [id number] 2.16.840.1.260887.3.579. 2.462 Unknown [id number] 2.16.840.1.827818.3.579. 2.462 Unknown [id number] 2.16.840.1.258427.3.579. 2.462 Unknown [id number] 2.16.840.1.074653.3.579. 2.462 Unknown [id number] 2.16.840.1.285020.3.579. 2.462 Social History Date Type Detail Facility Start: 05-23-2018 End: 05-19-2019 Tobacco smoking status NMIS Former smoker [facility] Work Phone: History of tobacco use Cigar Smoker [employer] Work Phone: Start: 05-19-2019 End: 08-13-2023 Cigarettes smoked current (pack per day) - Reported [facility] Work Phone: Start: 05-19-2019 End: 08-13-2023 Alcohol intake Current non-drinker of alcohol (finding) [facility] Work Phone: Start: 12-03-2018 History SDOH Physica l Activity DPW 7 [facility] Work Phone: Start: 12-03-2018 History SDOH Physica l Activity MPS 9 [facility] Work Phone: Start: 12-03-2018 End: 10-31-2021 History SDOH Stress 1 [facility] Work Phone: Start: 12-03-2018 History SDOH Financial 5 [facility] Work Phone: Start: 12-03-2018 History SDOH Transpo rt Med 2 [facility] Work Phone: Start: 1950 Sex Assigned At Not on file S [facility] Work Phone: Start: 08-13-2012 End: 11-13-2019 Tobacco smoking status NHIS Never smoker [facility] Start: 05-23-2018 End: 11-13-2019 Tobacco use and exposure Never used [facility] Start: 11-13-2019 History SDOH Alcohol Std Drinks 98 [facility] Start: 10-11-2021 End: 02-15-2022 Exposure to SARS-CoV-2 (event) Not sure [facility] Start: 1950 Sex Assigned At Male W [facility] History of tobacco use Current smoker [facility] Work Phone: History of tobacco use Cigarette Smoker S [facility] Work Phone: Start: 10-31-2021 End: 08-13-2023 Tobacco use panel [facility] Tobacco smoking stat us NHIS Unknown if ever smoked [facility] Work Phone: Start: 07-11-2024 End: 08-21-2024 Sex Male (finding) [facility] NEGATED: Highlighted row - - [facility] Work Phone: Medical Equipment Procedure Code Equipment Code Equipment Origin al Text Equipment Identifier Dates Kit Bactiseal Woodard maria guadalupe Silicone Barium Catheter Shunt Sterile - [id number] Start: 06-08-2021 Catheter Bactise al 14cm External Drainage Csf Sterile Latex Free - [id number] Start: 08-05-2021 Valve Certas Shannon nt Inline - [id number] Start: 06-08-2021 Valve Certas Shannon nt Inline - [id number] Start: 08-05-2021 Valve Certas Shannon nt Inline - [id number] Start: 08-09-2021 Goals Date Patient Goal [...] status health issues are not documented [facility] Work Phone: Mental Status Date Assessment Result Facility NEGATED: Highlighted row Cognitive function [Interpretation] Cognitive status health issues are not documented [facility] Work Phone: Clinical Notes [...] Hydrocephalus, adult (CMS/HCC) (HCC) Kidney stone Neuropathy SMALL BATTERY PLATE ASSEMBLER (ventriculoperitoneal) shunt status Past Surgical History: Procedure [...] 09/13/23 12:05 PM documented in this encounter [facility] 08-31-2023 Note S: Shnathi from [facility] spoke with [facility] nurse regarding voiding trial procedure. B: Onset of symptoms/concern today. A: [facility] is calling to make sure that the patient doesn't need to stand for the procedure as the patient can't. Patient using a boaz lift and would need to come by cot if so. Shanthi advised that the patient would need to come back cot if unable to stand to move from chair to exam table for procedure. R: [facility] will attempt to arrange for transportation for September 03 but might need to reschedule appointment if unable to obtain transportation. Reason for Disposition [1] Caller requesting NON-URGENT health information AND [2] PCP's office is the best resource Protocols used: Information Only Call - No Yhpway-VUOVK-PHCHI [facility] 08-31-2023 Telephone encounter Note S: Shanthi from [facility] spoke with [facility] nurse regarding voiding trial procedure. B: [...] Protocols used: Information Only Call - No Cogulz-KUWFR-ZD [facility] 08-31-2023 Miscellaneous Notes S: Shanthi from [facility] [place] spoke with [facility] nurse regarding voiding trial [...] Protocols used: Information Only Call - No Vjfoni-VNWFH-YD documented in this encounter [facility] 08-29-2023 Telephone encounter Note Chidi on daughters vm to advise them to call the number for the counter manager to get clarification, and to call back with further questions [facility] 08-29-2023 Miscellaneous Notes Chidi on daughters vm to advise them to call the number for the counter manager to get clarification, and to call back with further questions Yes, they will need to call the number given to them. Please advise Name of caller: Shanthi Contact phone number: [phone] Relationship to Patient: patient Provider: MD Quinn Practice: [facility] Urology Chief Complaint/Reason for Call: Shanthi called in to see if Pt would need to come by cot for his CT appt due to Pt being Boaz. [facility] did reach out to office and was advised to reach out to Central Scheduling. TEA did reach out to and was advised to let [facility] know that she would need to reach out to call Maury Cedeño Card Grinder at [facility] [phone] to get clarifications. [facility] did reach back out to [facility] and advised and provider Maury's #. Please advise Best time of day caller can be reached: Any Patient advised that office/PCP has 24-48 business hours to return their call: N/A documented in this encounter [facility] 08-27-2023 Telephone encounter Note Yes, they will need to call the number given to them. [facility] 08-27-2023 Telephone encounter Note Please advise [facility] 08-21-2023 Telephone encounter Note Name of caller: [facility] Contact phone number: [phone] Relationship to Patient: patient Provider: MD Quinn Practice: [facility] Urology Chief Complaint/Reason for Call: Shanthi [...] to reach out to call Maury Cedeño Card Grinder at [facility] [phone] to get clarifications. TEA did reach back out to [facility] and advised and provider Maury's #. Please advise Best time of day caller can be reached: Any Patient advised that office/PCP has 24-48 business hours to return their call: N/A [facility] 08-13-2023 History of Present illness [...] Hydrocephalus, adult (CMS/HCC) (HCC) Kidney stone Neuropathy SMALL BATTERY PLATE ASSEMBLER (ventriculoperitoneal) shunt status Past Surgical History: Past [...] 08/13/23 10:45 AM documented in this encounter [facility] 06-25-2023 Telephone encounter Note [facility] called in stating appt scheduled 07/10/23 Guy has to be made further out, pt being transported by cot. Changed appt to 08/13/23 per [facility] only avail time for transport, first avail with DR Buck at 10:00 AM. [facility] 06-25-2023 Miscellaneous Notes [facility] called in stating appt scheduled 07/10/23 Guy has to be made further out, pt being transported by cot. Changed appt to 08/13/23 per [facility] only avail time for transport, first avail with DR Buck at 10:00 AM. documented in this encounter [facility] 12-22-2021 Hospital Discharge instructions SANIA Lou - 12/22/2021 2:32 AM EDT Please take medication as prescribed Please follow up with your Physicians as instructed in this discharge paperwork Thank you for choosing [facility] I appreciate your patience Please return to the emergency department if your symptoms worsen, or new symptoms develop as discussed documented in this encounter [facility] Work Phone: 10-29-2021 Note Hospitalist Discharg [...] abnormality and previous indwelling tubing history of SMALL BATTERY PLATE ASSEMBLER shunt ? #?Bilateral lower extremity wounds-wound care [...] neurologist. Patient will be transferred to the nursing home and his Coumadin was continued, dosing instructions were given. Wound care was given for his lower extremity wounds. Consults: neurology, vascular surgery, gastroenterology Discharge Instructions: Diet: No diet orders on file Activity: as tolerated Disposition: Patient discharged in stable condition to nursing home . Greater than 30 minutes spent discharging [...] Your Medications These medications were sent to [facility] [address] [place], [place] [address] [facility] - [phone] - F [phone] [facility] [id number] ? levETIRAcetam 750 MG tablet ? warfarin 6 MG tablet Recommended Follow-up: No follow-up provider specified. Complexity of Follow up: [] Moderate Complexity: follow up within 7-14 calendar days (80531) [x] Severe Complexity: follow up within 7 calendar days (21426) Follow up Testing, Pending results or Referrals [...] Increased fatigue or (more content not included)... [facility] 10-29-2021 Hospital Discharge instructions Fabi Subramanian RN [...] Primary Emergency Contact: Triny Damon Address: [address] [place] [address] [address] [place], [place] [id number] [place] [address] Relation: Brother/Sister Secondary Emergency Contact: Melissa Sifuentes Mobile Relation: Child Preferred language: Liberian Past Surgical History: Past Surgical History: Procedure Laterality Date BRAIN SURGERY CHOLECYSTECTOMY COLONOSCOPY HERNIA REPAIR Immunization History: Immunization History Administered Date(s) Administered Influenza Virus Vaccine 02/08/2015 Influenza, High Dose (Fluzone 65 yrs and older) 01/25/2018, 03/04/2019 Influenza, Quadv, IM, (6 mo and older Fluzone, Flulaval, Fluarix and 3 yrs and older Afluria) 02/24/2016, 02/14/2017 Pneumococcal Conjugate 13-valent ([id number]) 09/22/2016 Pneumococcal Conjugate Vaccine 02/04/2013 Pneumococcal Polysaccharide ([id number]) 12/03/2018 Tdap (Boostrix, Adacel) 09/22/2016 Active Problems: Patient Active Problem List Diagnosis Code Flank pain, acute R10.9 Night muscle spasms M62.838 Chronic fatigue R53.82 Hydrocephalus (HCC) G91.9 Neuropathy G62.9 Erectile dysfunction N52.9 Fluid retention in tissues R60.9 Hyperlipidemia E78.5 Morbidly obese (HCC) E66.01 Leg wound, left S81.802A DVT, lower extremity, recurrent, unspecified laterality ([facility]) I82.409 Moderate malnutrition ([facility]) E44.0 History of seizures Z87.898 [...] Dependent Dressing Dependent Toileting Dependent Feeding Dependent Lightning Rod Erector Dependent Med Delivery whole in pudding Wound [...] Q4H prn SOB Oxygen Therapy: {Therapy; copd oxygen:29456} Ventilator: {MH CC Vent List:[id number]} Rehab Therapies: {THERAPEUTIC INTERVENTION:[id number]} Weight Bearing Status/Restrictions: Weight Bearing - Patient was bedbound in hospital Other Medical Equipment (for information only, NOT a DME order): wheelchair, hospital bed, and Boaz Other Treatments: Patient's personal belongings (please select all that are sent with patient): {[facility] DME Belongings:[id number]} RN SIGNATURE: CASE MANAGEMENT/SOCIAL WORK SECTION Inpatient Status Date: Readmission Risk Assessment Score: Readmission Risk Risk of Unplanned Readmission: 11 Discharging to Facility/ Agency Name: Address: Phone: Fax: Dialysis Facility (if applicable) Name: Address: Dialysis Schedule: Phone: Fax: School Psychologist Assistant/Solution Make Up Operator signature: {Esignature:[id number]} PHYSICIAN SECTION Prognosis: Fair Condition at Discharge: Stable Rehab Potential (if transferring to Rehab): Fair Recommended Labs or Other Treatments After Discharge: Coumadin based on INR target range 2-3, Coumadin 6 mg on 10/30 and 10/31, recheck INR 11/01 and notify physician, ideally should be on 6 mg alt with 7 mg daily, PT/OT, follow-up with neurologist in 1 month, continue [facility] Physician Certification: I certify the above information and transfer of Andrew Sifuentes is necessary for the continuing treatment of the diagnosis listed and that he requires Snf Facility for greater than 30 days. Update Admission H&P: No change in H&P PHYSICIAN SIGNATURE: documented in this encounter [facility] Work Phone: 10-29-2021 History of Present illness Narrative [facility] Anticoagulation Management Service ([facility]) Inpatient Warfarin Consult HPI: Andrew Sifuentes is a 71 y.o. 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 Past Medical History: Diagnosis Date ED (erectile dysfunction) Hemorrhoids Hydrocephalus, adult (HCC) Kidney stone Neuropathy SMALL BATTERY PLATE ASSEMBLER (ventriculoperitoneal) shunt status Patient is newly referred [...] [facility] Consult Service is available daily [phone]. Please search for covering pharmacist name via WHATT or Groups --> Pharmacy --> Anti-Coagulation Consult Pharmacist (on 3rd page). If no response via WHATT, please page [phone]. Patient seen and chart reviewed. Afebrile. Adequate oxygenation on room air. Baseline mentation. Exam stable X 5 systems. Hgb 11.0 WBC 10.0 K Platelets 344 K Creatinine 0.71 GFR > 90 cc/min. NSE 20.8 with hemolysis. PT 30.8 INR 3.1 Conversion to Warfarin has been completed. APS w/u pending. Discussed with patient's staff counselor. Will continue to monitor. Total visit time > 35 minutes. Neurology Attending Progress Note SUBJECTIVE: No issues overnight. Care discussed with nursing staff/patient's medical team MRI brain reported nothing acute. Assessment and Plan: 71 yr M with PMH obstructive hydrocephalus s/p SMALL BATTERY PLATE ASSEMBLER shunt in 1987, needing multiple revisions and [...] normal limits and both old and new SMALL BATTERY PLATE ASSEMBLER shunt tubing noted. At present patient is awake, follows commands, was able to tell his name, and that he was in hospital but not oriented to time. Per documentation patient had NCSE in May 2021, was on Vimpat, but it was discontinued as there was no evidence of recurrent seizures in july 2021 by Neurology at [facility], per daughter patient was on Dilantin for 31 yrs. Per daughter patient had seizures in the past and also felt he had staring episodes 10/26/2021 morning. Per daughter patient has been essentially bed bound in [place] since May 2021 but prior to that was independent Impressions: H/O hydrocephalus H/O seizure, H/O stroke Acute DVT H/O PE Plan: -MRI brain w/o contrast nothing acute -CT head done during this admission reported no hydrocephalus, ventricles within normal limits and both old and new SMALL BATTERY PLATE ASSEMBLER shunt tubing noted -EEG mild to moderate slow, no seizures reported -Labs reviewed -Hydrocephalus management per Neurosurgery. At present patient does not have hydrocephalus on CT head done this admission. No Neurosurgery services available as inpatient in [facility]. Patient can follow up with Neurosurgery [...] May 2021 when he was admitted to [facility]. Per daughter she would want patient [...] is no in house Neurology coverage at [facility] over the weekend, primary hospitalist team to contact extrusion utility worker Neurology at [facility] for any weekend neurological issues related to the patient and if need to discuss any neurological test results/findings. Other deal in house Neurology coverage will be available from Sunday at [facility] and please call extrusion utility worker Neurology back on Sunday if need further assistance. This note has been generated using [employer] dictation software. It may contain incorrect words, punctuation's and spellings that were not noted in the review of the note prior to signing. This note has been generated using [employer] dictation software. It may contain incorrect [...] eGFR >90.0 >60 mL/min EGFR IF NonAfrican Kittitian >90.0 >60 mL/min Calcium 9.1 8.4 - [...] 26 AST 24 BILITOT 0.4 LABALBU 3.7 @BRIEFLAB([facility]) ABGs: )No results for input(s): PH, [...] Radiology ACCESSION EXAM DATE/TIME PROCEDURE ORDERING PROVIDER [id number] 10/21/2021 15:30 EDT CR Calcaneus 2+ Views [id number] -SHRUTHI MALIK Left CPT code 95089 Reason For Exam (CR Calcaneus 2+ Views [...] Tomography ACCESSION EXAM DATE/TIME PROCEDURE ORDERING PROVIDER [id number] 10/26/2021 11:[address] Head or Brain w/o JUNIE PINEDA, SARINA Contrast CPT code 24397 Reason For Exam (CT Head or Brain w/o Contrast) hydrocephalus. thank you Report CLINICAL INFORMATION: Hydrocephalus. Shunt. 3 mm axial cuts through the head are obtained without IV contrast. The examination is compared to a previous study dated 06/29/2014. FINDINGS: Old SMALL BATTERY PLATE ASSEMBLER shunt tubing is noted bilaterally. The new [...] are clear. IMPRESSION: 1. Old and new SMALL BATTERY PLATE ASSEMBLER shunt tubing. 2. No hydrocephalus. 3. Atrophy [...] Imaging ACCESSION EXAM DATE/TIME PROCEDURE ORDERING PROVIDER [id number] 10/23/2021 11:08 EDT MRI Abdomen w/o Contrast WING SRIVASTAVA CPT code 46376 Reason For Exam (MRI Abdomen w/o Contrast) [...] Medicine ACCESSION EXAM DATE/TIME PROCEDURE ORDERING PROVIDER [id number] 10/21/2021 07:55 EDT NM Pulmonary Perfusion [id number] MAY BOGGS w/ Vent Aerosol CPT code 48319 A9567 Reason For Exam (NM Pulmonary Perfusion [...] Brachial Indices Extremity Bilateral Result Date: 10/22/2021 [facility] --- Ankle Brachial Index Report Patient DO GurpreetB: 1950 Study 10/21/2021 Name: Andrew Gonzalez (71yrs) Date: Age: 71 Account: [id number] Gender: M Loc: 444W BP: Ordering Physician: Shruthi [employer]ik [employer] Psychometrist: Rody Cross RDMS, RVT Interpreting Physician: Carina Call --- Location: [facility] --- Indications: Foot wounds. Originally ordered as a full PVR. Ordering SCRAP HOIST OPERATOR had to modify the order to [...] supine position. Images were obtained using a [employer] vascular ultrasound machine. --- Arterial pressure indices: [...] EXTREMITY BILATERAL VENOUS DUPLEX Result Date: 10/21/2021 [facility] --- Lower Extremity Venous Duplex Report Patient RADHA Sifuentes: 1950 Study 10/21/2021 Name: Andrew Gonzalez (71yr) Date: Age: 71 Account: [id number] Gender: M Loc: 444 BP: Ordering Physician: May Cash [employer] Psychometrist: Rody Cross RDMS, RVT Interpreting Physician: Carina Call --- Location: [facility] --- Indications: Bilateral lower leg edema. [...] supine position. Images were obtained using a [employer] vascular ultrasound machine. --- Venous flow and [...] Radiology ACCESSION EXAM DATE/TIME PROCEDURE ORDERING PROVIDER [id number] 10/21/2021 08:16 EDT CR Chest 1 View Frontal [id number] MAY BOGGS CPT code 17551 Reason For Exam (CR Chest 1 View [...] Tomography ACCESSION EXAM DATE/TIME PROCEDURE ORDERING PROVIDER [id number] 10/22/2021 13:[address] Abdomen/Pelvis (No SRIVASTAVA, WING PO, No IV) CPT code 71231 Reason For Exam (CT Abdomen/Pelvis (No PO, [...] Imaging ACCESSION EXAM DATE/TIME PROCEDURE ORDERING PROVIDER [id number] 10/27/2021 13:14 EDT MRI Brain w/o Contrast UNASSIGNED, UNASSIGNED CPT code 12007 Reason For Exam (MRI Brain w/o Contrast) stroke Patient has SMALL BATTERY PLATE ASSEMBLER shunt in place, please follow Radiology protocol [...] included. Hospitalist Progress Note 10/28/2021 11:37 AM [phone]: Please page me @ [phone] for patient care issues. [phone]: Please page central supply aide for any issues@ night Subjective: Admit Date: [...] abnormality and previous indwelling tubing history of SMALL BATTERY PLATE ASSEMBLER shunt # Bilateral lower extremity wounds-wound care [...] Services This report was created using the [employer] voice-activated system. Despite prompt dictation and careful editorial review, there may be subtle contextual errors in this report, due to misrecognition of the spoken word. Speech Language Pathology Facility/Department: [facility] MED SURG Dysphagia Treatment Note NAME: [...] and gloves were worn throughout this session. [facility] Anticoagulation Management Service ([facility]) Inpatient Warfarin Consult HPI: Andrew Sifuentes is a 71 y.o. 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 Past Medical History: Diagnosis Date ED (erectile dysfunction) Hemorrhoids Hydrocephalus, adult (HCC) Kidney stone Neuropathy SMALL BATTERY PLATE ASSEMBLER (ventriculoperitoneal) shunt status Patient is newly referred [...] SNF. 4. Will provide warfarin education including [facility] warfarin booklet, if appropriate. Brionna Le, PharmD candidate Josie Gupta RP, PharmD [facility] Consult Service is available daily [phone]. Please search for covering pharmacist name via WHATT or Groups --> Pharmacy --> Anti-Coagulation Consult Pharmacist (on 3rd page). If no response via WHATT, please page [phone]. Follow up b/l foot wounds. No new [...] yr M with H obstructive hydrocephalus s/p SMALL BATTERY PLATE ASSEMBLER shunt in 1987, needing multiple revisions and [...] normal limits and both old and new SMALL BATTERY PLATE ASSEMBLER shunt tubing noted. At present patient is awake, follows commands, was able to tell his name, and that he was in hospital but not oriented to time. Per documentation patient had NCSE in May 2021, was on Vimpat, but it was discontinued as there was no evidence of recurrent seizures in july 2021 by Neurology at [facility], per daughter patient was on Dilantin for 31 yrs. Per daughter patient had seizures in the past and also felt he had staring episodes 10/26/2021 morning. Per daughter patient has been essentially bed bound [place] since May 2021 but prior to that was independent Impressions: H/O hydrocephalus H/O seizure, H/O stroke Acute DVT H/O PE Plan: -MRI brain w/o contrast. Per daughter she would like MRI brain done to evaluate for strokes -CT head done during this admission today reported no hydrocephalus, ventricles within normal limits and both old and new SMALL BATTERY PLATE ASSEMBLER shunt tubing noted -EEG mild to moderate slow, no seizures reported -Labs reviewed -Hydrocephalus management per Neurosurgery. At present patient does not have hydrocephalus on CT head done this admission. No Neurosurgery services available as inpatient in [facility]. Patient can follow up with Neurosurgery [...] May 2021 when he was admitted to [facility]. Per daughter she would want patient [...] interim. This note has been generated using [employer] dictation software. It may contain incorrect words, punctuation's and spellings that were not noted in the review of the note prior to signing. This note has been generated using [employer] dictation software. It may contain incorrect [...] LABALBU, AMYLASE, LIPASE in the last 72 hours.@BRIEFLAB([facility]) ABGs: )No results for input(s): PH, [...] Radiology ACCESSION EXAM DATE/TIME PROCEDURE ORDERING PROVIDER [id number] 10/21/2021 15:30 EDT CR Calcaneus 2+ Views [id number] -SHRUTHI MALIK Left CPT code 63946 Reason For Exam (CR Calcaneus 2+ Views [...] Result Date: 10/26/2021 [id number] Tomography ACCESSION EXAM DATE/TIME PROCEDURE ORDERING PROVIDER [id number] 10/26/2021 11:[address] Head or Brain w/o JUNIE PINEDA ALLISON Contrast CPT code 85302 Reason For Exam (CT Head or Brain w/o Contrast) hydrocephalus. thank you Report CLINICAL INFORMATION: Hydrocephalus. Shunt. 3 mm axial cuts through the head are obtained without IV contrast. The examination is compared to a previous study dated 06/29/2014. FINDINGS: Old SMALL BATTERY PLATE ASSEMBLER shunt tubing is noted bilaterally. The new [...] are clear. IMPRESSION: 1. Old and new SMALL BATTERY PLATE ASSEMBLER shunt tubing. 2. No hydrocephalus. 3. Atrophy [...] Imaging ACCESSION EXAM DATE/TIME PROCEDURE ORDERING PROVIDER [id number] 10/23/2021 11:08 EDT MRI Abdomen w/o Contrast WING SRIVASTAVA CPT code 79895 Reason For Exam (MRI Abdomen w/o Contrast) [...] Medicine ACCESSION EXAM DATE/TIME PROCEDURE ORDERING PROVIDER [id number] 10/21/2021 07:55 EDT NM Pulmonary Perfusion [id number] MAY BOGGS w/ Vent Aerosol CPT code 54994 A9567 Reason For Exam (NM Pulmonary Perfusion [...] Brachial Indices Extremity Bilateral Result Date: 10/22/2021 [facility] --- Ankle Brachial Index Report Patient RADHA Sifuentes: 1950 Study 10/21/2021 Name: Andrew Gonzalez (71yrs) Date: Age: 71 Account: [id number] Gender: M Loc: 444W BP: Ordering Physician: Shruthi Malik [employer] Psychometrist: Rody Cross RDMS, RVT Interpreting Physician: Carina Call --- Location: [facility] --- Indications: Foot wounds. Originally ordered as a full PVR. Ordering SCRAP HOIST OPERATOR had to modify the order to [...] supine position. Images were obtained using a [employer] vascular ultrasound machine. --- Arterial pressure indices: [...] EXTREMITY BILATERAL VENOUS DUPLEX Result Date: 10/21/2021 [facility] --- Lower Extremity Venous Duplex Report Patient RADHA Sifuentes: 1950 Study 10/21/2021 Name: Andrew R (71yrs) Date: Age: 71 Account: [id number] Gender: M Loc: 444 BP: Ordering Physician: May Cash [employer] Psychometrist: Rody Cross RDMS, RVT Interpreting Physician: Carina Call --- Location: [facility] --- Indications: Bilateral lower leg edema. [...] supine position. Images were obtained using a [employer] vascular ultrasound machine. --- Venous flow and [...] Radiology ACCESSION EXAM DATE/TIME PROCEDURE ORDERING PROVIDER [id number] 10/21/2021 08:16 EDT CR Chest 1 View Frontal [id number] AMBROSE MAY CPT code 05179 Reason For Exam (CR Chest 1 View [...] Tomography ACCESSION EXAM DATE/TIME PROCEDURE ORDERING PROVIDER [id number] 10/22/2021 13:[address] Abdomen/Pelvis (No SRIVASTAVA, WING PO, No IV) CPT code 25468 Reason For Exam (CT Abdomen/Pelvis (No PO, [...] 12:48 PM Consults Speech Language Pathology Facility/Department: [facility] MED SURG Dysphagia Treatment Note NAME: [...] reactivity and state change, indicative of a [id number] diffuse encephalopathy of nonspecific etiology. There are [...] Easy to chew diet/cut up. NEVILLE Jones M.A.CCC/APPLE THINNER Time session ended: 1156 Total session minutes: 23 Images from the original note were not included. Hospitalist Progress Note 10/27/2021 10:40 AM [phone]: Please page me @ [phone] for patient care issues. [phone]: Please page central supply aide for any issues@ night Subjective: Admit Date: [...] Services This report was created using the [employer] Speaking voice-activated system. Despite prompt dictation and careful editorial review, there may be subtle contextual errors in this report, due to misrecognition of the spoken word. [facility] Anticoagulation Management Service ([facility]) Inpatient Warfarin Consult HPI: Andrew Sifuentes is a 71 y.o. 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 Past Medical History: Diagnosis Date ED (erectile dysfunction) Hemorrhoids Hydrocephalus, adult (HCC) Kidney stone Neuropathy SMALL BATTERY PLATE ASSEMBLER (ventriculoperitoneal) shunt status Patient is newly referred to the [facility] clinic for warfarin management. Pt was referred by BRIAN Webber. Pt is on warfarin for DVT and has a goal INR 2.0 - 3.0 . Duration of therapy= indefinite. Reason for warfarin instead of DOAC: DOAC failure PCP: MONKIA STALEY MD S/sx of bleeding= none noted [...] PharmD [facility] Consult Service is available daily [phone]. Please search for covering pharmacist name via WHATT or Groups --> Pharmacy --> Anti-Coagulation Consult Pharmacist (on 3rd page). If no response via [employer], please page [phone]. I cleaned under patient's [...] status with Warfarin. Discussed with patient's staff counselor. Will continue to monitor. Total visit time [...] if concern Hydrocephalus Chronic WOODARD's - Revised SMALL BATTERY PLATE ASSEMBLER shunt - daughter requested that pt have CT / MRI of brain and neurology be consulted, this was done. - Hydrocephalus management per Neurosurgery. At present patient does not have hydrocephalus on CT head done this morning. No Neurosurgery services available as inpatient in [facility]. Patient can follow up with Neurosurgery as outpatient and if ends up needing inpatient neurosurgery requirement then may need to be transferred to [facility]. Seizure history, unspecified - daughter requested that [...] get report from nursing. Continue wound care. [facility] Anticoagulation Management Service ([facility]) Inpatient Warfarin Consult HPI: nAdrew Sifuentes is a 71 y.o. 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 Past Medical History: Diagnosis Date ED (erectile dysfunction) Hemorrhoids Hydrocephalus, adult (HCC) Kidney stone Neuropathy SMALL BATTERY PLATE ASSEMBLER (ventriculoperitoneal) shunt status Patient is newly referred [...] [facility] Consult Service is available daily [phone]. Please search for covering pharmacist name via WHATT or Groups --> Pharmacy --> Anti-Coagulation Consult Pharmacist (on 3rd page). If no response via WHATT, please page [phone]. Moon daughter stated that any of patient's [...] a small bore straw. Additionally discussed with APPLE THINNER, agreeable to assess tomorrow. Recent Chest Xray/CT [...] and liquids between bites. Treatment Plan Requires APPLE THINNER Intervention: Yes Duration of Treatment: 2 weeks [...] Education Response: Verbalizes understanding;Needs reinforcement Therapy Time APPLE THINNER Individual Minutes Time In: 826 Time Out: 852 Minutes: 26 NEVILLE Jones 10/26/2021 9:20 AM Comprehensive Nutrition Assessment Type and Reason for Visit: Initial (DT referral for wounds) Nutrition Recommendations/Plan: 1. Recommend to continue: Easy to Chew diet with Thin Liquids as currently ordered and safe for patient to participate in. Discussed with: RN, SCRAP HOIST OPERATOR, and APPLE THINNER. APPLE THINNER to assess tomorrow, best diet and liquid [...] & deltoids),Scapula (trapezius) Fluid Accumulation: Mild Extremities [employer] Turbines Assembler Strength: Not Performed Nutrition Assessment: 71 year [...] a small bore straw. Additionally discussed with APPLE THINNER, agreeable to assess tomorrow. Nutrition Related Findings: [...] Anthropometric Measures: Height: 5' 7.01 (170.2 cm) [place] Body Weight (IBW): 148 lbs (67 kg) Admission Body Weight: 240 lb (108.9 kg) (stated 10/21/21) Current Body Weight: 205 lb 4 oz (93.1 kg) (10/25/21), 138.7 % IBW. Weight Source: Bed Scale Current BMI (kg/m2): 32.1 Usual Body Weight: 272 lb 11.3 oz (123.7 kg) (05/30/21 and 232.5# noted 08/14/21 at [facility] per EMR Review) % Weight Change (Calculated): -24.7 BMI Categories: Obese Class 1 (BMI 30.0-34.9) Estimated Daily Nutrient Needs: Energy Requirements Based On: Kcal/kg Weight Used for Energy Requirements: [place] (67.15 kg) Energy (kcal/day): 2640-2637 (27-32 kcal/kg IBW) --> increased need d/t wounds Weight Used for Protein Requirements: [place] (67.15 kg) Protein (g/day): 67-101 (1.0-1.5 g protein/kg IBW) Method Used for Fluid Requirements: Other (Comment) Fluid (ml/day): 0187-0637 mL daily or per MD Nutrition Diagnosis: [...] Plan of Care discussed with: Patient, RN, SCRAP HOIST OPERATOR [place] Goals: Goals: other (specify) Specify Other Goals: [...] to determine [address], CHENG Contact: *[phone] Or Via WHATT Hematology/Oncology Attending Progress Note SUBJECTIVE: Patient seen [...] IRON, TIBC, FERRITIN No results found for: [id number] No results found for: FOLATE PT 15.6 INR 1.5 CA 19 - 9 is 17 Protein S 138% Protein C 186% ASSESSMENT AND PLAN GI input appreciated. Patient continues with subtherapeutic INR. GI input appreciated. Discussed with patient's staff counselor. Will continue monitor. Total visit time > 35 minutes. [facility] Anticoagulation Management Service (IRVIN) Inpatient Warfarin Consult HPI: Andrew Sifuentes is a 71 y.o. 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 Past Medical History: Diagnosis Date ED (erectile dysfunction) Hemorrhoids Hydrocephalus, adult (HCC) Kidney stone Neuropathy SMALL BATTERY PLATE ASSEMBLER (ventriculoperitoneal) shunt status Patient is newly referred to the [facility] clinic for warfarin management. Pt was referred by BRINA Webber. Pt is on warfarin for DVT [...] PharmD [facility] Consult Service is available daily [phone]. Please search for covering pharmacist name via WHATT or Groups --> Pharmacy --> Anti-Coagulation Consult Pharmacist (on 3rd page). If no response via [employer], please page [phone]. Progress Note 10/25/2021 9:36 AM Name: Andrew [...] if concern Hydrocephalus Chronic WOODARD's - Revised SMALL BATTERY PLATE ASSEMBLER shunt DC planning - 10/25/21: INR subtherapeutic, needs to be 2 Progress Note 10/24/2021 3:24 PM Name: Andrew Sifuentes Day: 3 Admit Date: 10/21/2021 12:43 AM PCP: MONIKA STLAEY MD Code Status: Full Code Subjective: No [...] if concern Hydrocephalus Chronic WOODARD's - Revised SMALL BATTERY PLATE ASSEMBLER shunt DC planning - Can be DC'd back to ECF once MRI done if no acute findings, MRI is done, defer to hem / onc on plan for that, awaiting chest PA with fluoro Patient seen and chart reviewed. Consult dictated. Will ask GI to assess concerning the etiology of liver lesions. Will continue to monitor. [facility] Anticoagulation Management Service ([facility]) Inpatient Warfarin Consult HPI: Andrew Sifuentes is a 71 y.o. 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 Past Medical History: Diagnosis Date ED (erectile dysfunction) Hemorrhoids Hydrocephalus, adult (HCC) Kidney stone Neuropathy SMALL BATTERY PLATE ASSEMBLER (ventriculoperitoneal) shunt status Patient is newly referred [...] SNF. 4. Will provide warfarin education including [facility] warfarin booklet, if appropriate. Thank you for this consult Brionna Le, PharmD candidate Josie Gupta [facility], PharmD [facility] Consult Service is available daily [phone]. Please search for covering pharmacist name via PerfectServe or Groups --> Pharmacy --> Anti-Coagulation Consult Pharmacist (on 3rd page). If no response via PerfectServe, please page [phone]. Follow up foot wounds Patient is more alert this morning. Waffle boots are on Ulcer left heel ulcer right foot Foot drop PE, chart reviewed. Patient relates that he does not walk at home. c ontinue wound care. Images from the original note were not included. Hospitalist Progress Note 10/23/2021 1:47 PM [phone]: Please page me ([phone]) or perfect serve me for patient care issues. [phone]: Please page IMS night Hospitalist for any issues. Subjective: Admit Date: 10/21/2021 PCP: MONIKA STALEY MD Room#: 007/1461 Admitting Synopsis: 71 y/o male presents from [...] if concern Hydrocephalus Chronic WOODARD's - Revised SMALL BATTERY PLATE ASSEMBLER shunt DC planning - Can be DC'd [...] Hemorrhoids Hydrocephalus, adult (HCC) Kidney stone Neuropathy SMALL BATTERY PLATE ASSEMBLER (ventriculoperitoneal) shunt status Medications: sodium chloride warfarin [...] Code Discharge planning: MATEO NGUYEN APRN - CUSTOMER SALES DISTRIBUTOR Division of Hospitalist Medicine Inpatient Medical Services PAGER: [phone] Nutrition rescreen completed. Pt referred to RD for foot ulcers. Occupational Therapy Facility/Department: [facility] MED SUR[facility] Occupational Therapy Initial Assessment Name: Andrew Sifuentes : 1950 Date of Service: 10/23/2021 OT eval and treat orders received. Chart reviewed. Per notes pt from [facility], is Boaz lift at baseline, non-ambulatory, and requires assist for all ADLs. Will d/c OT orders. Elizabeth Gutierrez OT Physical Therapy Facility/Department: [address] Physical Therapy Initial Assessment Name: Andrew Sifuentes : 1950 Date of Service: 10/23/2021 PT eval and treat orders received. Chart reviewed. Per notes pt from [facility], is Boaz lift at baseline, non-ambulatory. Will d/c PT orders. Lloyd Silva, PT [facility] Anticoagulation Management Service ([facility]) Inpatient Warfarin Consult HPI: Andrew Sifuentes is a 71 y.o. 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 Past Medical History: Diagnosis Date ED (erectile dysfunction) Hemorrhoids Hydrocephalus, adult (HCC) Kidney stone Neuropathy SMALL BATTERY PLATE ASSEMBLER (ventriculoperitoneal) shunt status Patient is newly referred to the [facility] clinic for warfarin management. Pt was referred by BIRAN Webber. Pt is on warfarin for DVT [...] PharmD [facility] Consult Service is available daily [phone]. Please search for covering pharmacist name via WHATT or Groups --> Pharmacy --> Anti-Coagulation Consult Pharmacist (on 3rd page). If no response via WHATT, please page [phone]. Department of Podiatry Attending Consult Note Reason for Consult: Wound care Requesting Physician: MD Oksana CHIEF COMPLAINT: Foot wounds HISTORY OF PRESENT ILLNESS: The patient is a 71 y.o. male with b/l foot wounds. Patient is awake , but not answering questions. Past Medical History: Diagnosis Date ED (erectile dysfunction) Hemorrhoids Hydrocephalus, adult (HCC) Kidney stone Neuropathy SMALL BATTERY PLATE ASSEMBLER (ventriculoperitoneal) shunt status Past Surgical History: Procedure [...] OT consulted. Will follow . Thank you. [facility] Department Progress Note As part [...] included. Hospitalist Progress Note 10/22/2021 6:33 AM [phone]: Please page me ([phone]) or perfect serve me for patient care issues. [phone]: Please page [facility] night Hospitalist for any issues. Subjective: Admit Date: 10/21/2021 PCP: MONIKA STALEY MD Room#: 113/146 Admitting Synopsis: 71 y/o male presents from [...] consider MRI if concern Hydrocephalus - Revised SMALL BATTERY PLATE ASSEMBLER shunt Interval History: No overnight issues. Denies [...] no cyanosis or edema and unable to fashion styling intern BLE, this is old Musculoskeletal: Muscle loss [...] Hemorrhoids Hydrocephalus, adult (HCC) Kidney stone Neuropathy SMALL BATTERY PLATE ASSEMBLER (ventriculoperitoneal) shunt status Medications: sodium chloride baclofen 10 mg Oral TID bumetanide 2 mg Oral Daily potassium chloride 20 mEq Oral Daily sodium chloride flush 5-40 mL IntraVENous 2 times per day enoxaparin 1 mg/kg SubCUTAneous BID ipratropium-albuterol 1 ampule Inhalation Q4H NM LABS: CBC: Recent Labs 10/21/210 10/22/21 0404 [...] of Hospitalist Medicine Inpatient Medical Services PAGER: [phone] Images from the original note were not included. Hospitalist Progress Note 10/21/2021 5:31 PM [phone]: Please page me ([phone]) or perfect serve me for patient care issues. [phone]: Please page IMS night Hospitalist for any [...] Will need chronic OAC Hydrocephalus - Revised SMALL BATTERY PLATE ASSEMBLER shunt Interval History: No overnight issues. Denies [...] Hemorrhoids Hydrocephalus, adult (HCC) Kidney stone Neuropathy SMALL BATTERY PLATE ASSEMBLER (ventriculoperitoneal) shunt status Medications: sodium chloride baclofen [...] Code Discharge planning: MATEO NGUYEN APRN - CUSTOMER SALES DISTRIBUTOR Division of Hospitalist Medicine Inpatient Medical Services PAGER: [phone] Family member Triny, sister to patient, called back to the hospital stating that she was returning a call from a provider. Her phone number is [phone] to speak with whomever was attempting to reach out to her. documented in this encounter [employer] Work Phone: 10-17-2021 Miscellaneous Notes Mr. Sifuentes missed his hospital stay follow-up appointment w. Dr. Lim today. Called to Reschedule. Could not get through. Subscriber you have dialed not in service - was the automated voice mail. Unable to leave . No other phone# available. Ramya Negro Veterinary Virologist [facility] documented in this encounter [facility] 08-19-2021 Note [facility] 08-19-2021 Note [facility] 08-18-2021 Note [facility] 08-18-2021 Note [facility] 08-17-2021 Note [facility] 08-17-2021 Note [facility] 08-16-2021 Note [facility] 08-16-2021 Note HNO ID: [id number] Author: Katt Kelsey DO Service: Hospital Medicine Author Type: Physician Type: Plan of Care Filed: 08/16/2021 12:26 PM Note Text: Spoke with RN that line is a PICC. Katt Kelsey DO 08/16/2021 12:26 PM [facility] 08-16-2021 Note [facility] 08-16-2021 Note [facility] 08-15-2021 Note [facility] 08-15-2021 Note [facility] 08[facility]15-2021 Note [facility] 08-14-2021 Note [facility] 08-14-2021 Note [facility] 08-13-2021 Note [facility] 08-13-2021 Note [facility] 08-13-2021 Note [facility] 08-13-2021 Note HNO ID: [id number] Author: Ambar Note Service: ? Author Type: ? Type: Progress Notes Filed: 08/13/2021 3:10 AM Note Text: Epic Scheduled Downtime: 08/13/2021 1:08:47 AM to 08/13/2021 2:53:47 AM [facility] 08-12-2021 Note [facility] 08-12-2021 Note [facility] 08-12-2021 Note [facility] 08-11-2021 Note [facility] 08-11-2021 Note [facility] 08-11-2021 Note [facility] 08-11-2021 Note [facility] 08-11-2021 Note [facility] 08[facility]11-2021 Note [facility] 08-10-2021 Note [facility] 08-10-2021 Note [facility] 08-10-2021 Note [facility] 08-10-2021 Note [facility] 08-09-2021 Note HNO ID: [id number] Author: Shannon Brooks RN Service: ? Author Type: Registered Nurse Type: Nursing Progress Note Filed: 08/09/2021 7:33 PM Note Text: Report called to unit [facility] 08-09-2021 Note [facility] 08-09-2021 Note [facility] 08-09-2021 Note [facility] 08[facility]08-2021 Note [facility] 08-08-2021 Note [facility] 08-08-2021 Note [facility] 08-07-2021 Note [facility] 08[facility]07-2021 Note [facility] 08-07-2021 Note [facility] 08-07-2021 Note [facility] 08-07-2021 Note [facility] 08-06-2021 Note [facility] 08-06-2021 Note [facility] 08-06-2021 Note [facility] 08-05-2021 Note [facility] 08-05-2021 Note [facility] 08-05-2021 Note [facility] 08-04-2021 Note [facility] 08-04-2021 Note [facility] 08[facility]04-2021 Note [facility] 08-03-2021 Note [facility] 08-03-2021 Note [facility] 08-03-2021 Note [facility] 08-02-2021 Note [facility] 08-02-2021 Note [facility] 08-02-2021 Note [facility] 08-01-2021 Note [facility] 08-01-2021 Note [facility] 08-01-2021 Note [facility] 08-01-2021 Note [facility] 07-31-2021 Note [facility] 07-31-2021 Note [facility] 07-30-2021 Note [facility] 07-30-2021 Note [facility] 07[facility]30-2021 Note [facility] 07-29-2021 Note [facility] 07-29-2021 Note [facility] 07-29-2021 Note [facility] 07-28-2021 Note [facility] 07[facility]28-2021 Note [facility] 07-28-2021 Note [facility] 07-27-2021 Note [facility] 07-27-2021 Note [facility] 07[facility]27-2021 Note [facility] 07-26-2021 Note [facility] 07-26-2021 Note [facility] 07-26-2021 Note [facility] 07-26-2021 Note [facility] 07-26-2021 Note [facility] 07-25-2021 Note [facility] 07-25-2021 Note [facility] 07[facility]25-2021 Note [facility] 07-25-2021 Note [facility] 07-24-2021 Note [facility] 07[facility]24-2021 Note [facility] 07-24-2021 Note [facility] 07-23-2021 Note [facility] 07[facility]23-2021 Note [facility] 07-23-2021 Note [facility] 07-23-2021 Note [facility] 07-23-2021 Note [facility] 07-22-2021 Note [facility] 07[facility]22-2021 Note [facility] 07-22-2021 Note [facility] 07-21-2021 Note [facility] 07-21-2021 Note [facility] 07-21-2021 Note [facility] 07-21-2021 History of [...] history of fever, elevated WBC, RP hematoma SMALL BATTERY PLATE ASSEMBLER shunt tip grew anaerobic gram positive cocci 06/08/2021 PLAN: SMALL BATTERY PLATE ASSEMBLER shunt tip sent to [facility] main, awaiting cx Continue Meropenem per [...] - following CSF studies; 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 for SUPERVISOR AGENCY APPOINTMENTS infection at this time - ID following- Continue antibiotics: Meropenem -CSF leak from EVD site, appreciate NSGY recs> stat repeat CTH on 06/07 d/t concern for CSF leak, cephalematoma, CTH unremarkable -Tolerating TF - SBT WTE - PICC line placed documented as of this encounter (statuses as of 10/17/2021) [facility]03-17-2022 [place]03[place]16[place]2022 [place]-16[place]2022 [place]-16[place]2022 Note [facility]03-16-2022 [place] 07-19-2021 [place]03[place]15-2022 [place]03[place]15-2022 [place]03-14-2022 [place]03[place]14-2022 [place]03-13-2022 [place]03[place]13-2022 [place]03[place]12-2022 Note [facility]03-12-2022 [place] 07-15-2021 [place]03[place]11-2022 [place]03-10-2022 [place]03-10-2022 [place]03-10-2022 [place]03-09-2022 [place]03-09-2022 [place]03[place]09-2022 Note [facility]03-09-2022 [place] 07-12-2021 [place]03-08-2022 [place]03[place]07-2022 [place]03[place]07-2022 [place]03[place]07-2022 [place]03[place]07-2022 [place]03[place]06-2022 [place]06-2022 Note [facility]03-05-2022 [place] 07-09-2021 [place]03[place]05-2022 [place]03[place]05-2022 [place]03-05-2022 NoteHNO ID: [id number] Author: Lizette Valderrama RN Service: Nursing Author Type: Registered Nurse Type: Nursing Progress Note Filed: 07/09/2021 1:41 AM Note Text: Report called to [facility]03-04-2022 NoteHNO ID: [id number] Author: Lizette Valderrama RN Service: Nursing Author Type: Registered Nurse Type: Nursing Progress Note Filed: 07/08/2021 8:57 PM Note Text: [address] 2049 back to PACU [address] [place], [place] [address]3103-04-2022 NoteHNO ID: [id number] Author: Sukhi Chery APRN.CNP Service: ? Author Type: Nurse Practitioner Type: Progress Notes Filed: 07/09/2021 6:46 PM Note Text: Connected Care Unit Progress Note Patient Name: Andrew Sifuentes Patient Facility: [facility] Admit Date 06/28/2021 Level of Care: Skilled [...] Dept Phone 07/21/2021 11:00 AM NICOLE LIM [phone] HPI: (Per Dr. Beltran) Andrew Sifuentes is being seen today for snf facility (SNF) admission AND management of weakness, tube feed, infected retroperitoneal infection and seizure. ? This is a 71 year old male who presents from [facility] with primary admitting diagnosis of Seizure, [...] CT brain concerning for hydrocephalus. Tip of SMALL BATTERY PLATE ASSEMBLER shunt was found to be in the [...] co (more content not included)... [facility]03-04-2022 [place]03[place]04[place]2022 [place]02-2022 NoteHNO ID: [id number] Author: Sukhi Chery APRN.VICTORIANO Service: ? Author Type: Nurse Practitioner Type: Progress Notes Filed: 07/09/2021 6:20 PM Note Text: Connected Care Unit Progress Note Patient Name: Andrew Sifuentes Patient Facility: [facility] Admit Date 06/28/2021 Level of Care: Skilled [...] Dept Phone 07/21/2021 11:00 AM NICOLE LIM [phone] HPI: (Per Dr. Beltran) Andrew Sifuentes is being seen today for snf facility (SNF) admission AND management of weakness, tube feed, infected retroperitoneal infection and seizure. ? This is a 71 year old male who presents from [facility] with primary admitting diagnosis of Seizure, [...] CT brain concerning for hydrocephalus. Tip of SMALL BATTERY PLATE ASSEMBLER shunt was found to be in the [...] is clear. (more content not included)...[facility]02-28-2022 NoteHNO ID: [id number] Author: Sukhi Chery APRN.VICTORIANO Service: ? Author Type: Nurse Practitioner Type: Progress Notes Filed: 07/09/2021 6:07 PM Note Text: Connected Care Unit Progress Note Patient Name: Andrew Sifuentes Patient Facility: [facility] Admit Date 06/28/2021 Level of Care: Skilled [...] but nursing notes it was drawn by receipt and report clerk as vancomycin was being infused; reordered trough - PICC Line Intact - No fevers or chills per patient or staff (R53.81) Debility - Certify therapies - Maintain high falls risk precautions - pt/staff verbalize understanding validated via teach back - Monitor safety awareness Appointments for Next 60 Days Date Time Provider Location Dept Phone 07/21/2021 11:00 AM CHANDLER NICOLE STEPH [facility]WT[facility] [phone] HPI: (Per Dr. Beltran) Andrew Sifuentes is being seen today for snf facility (SNF) admission AND management of weakness, tube feed, infected retroperitoneal infection and seizure. ? This is a 71 year old male who presents from [facility] with primary admitting diagnosis of Seizure, [...] CT brain concerning for hydrocephalus. Tip of SMALL BATTERY PLATE ASSEMBLER shunt was found to be in the [...] to facility records. OBJECTIVE: Labs/diagnostics: 07/04/2021 Glucose=91 Sz=848 K=3.8 Sq=013 CO2=24 BUN=14 Creatinine=0.5 FCC=844 Ca=9.0 Protein,Total=6.7 Albumin=3.6 CfrZrtm=636 AST=15 ALT=21 Bilirubin,Totall=0.5 WBC=10.7 RBC=4.04 Hgb=10.9 Hct=35.3 Ucxusfop=086 VancomycinTr (more content not included)...[facility]02-24-2022 NoteHNO ID: [id number] Author: Sukhi Chery APRN.VICTORIANO Service: ? Author Type: Nurse Practitioner Type: Progress Notes Filed: 07/09/2021 5:43 PM Note Text: Connected Care Unit Progress Note Patient Name: Andrew Sifuentes Patient Facility: [facility] Admit Date 06/28/2021 Level of Care: Skilled [...] Phone 07/21/2021 11:00 AM NICOLE LIM [facility] [phone] HPI: (Per Dr. Beltran) Andrew Sifuentes is being seen today for snf facility (SNF) admission AND management of weakness, tube feed, infected retroperitoneal infection and seizure. ? This is a 71 year old male who presents from [facility] with primary admitting diagnosis of Seizure, [...] CT brain concerning for hydrocephalus. Tip of SMALL BATTERY PLATE ASSEMBLER shunt was found to be in the [...] to facility records. OBJECTIVE: Labs/diagnostics: 07/01/2021 Glucose=83 Oi=765 K=4.1 Gw=233 CO2=27 BUN=22 Creatinine=0.6 DYI=143 Ca=8.7 WBC=10.8 RBC=3.40 Hgb=9.3 Hct=29.9 Blhvcefv=034 Vital Signs: BP 128/80 Pulse 77 Temp 36.7 ?C (98 ?F) Resp 20 Ht 182.9 cm (6') Wt 113 kg (249 lb 3.2 oz) SpO2 96% BMI 33.80 kg/m? Physical Exam: Physical Exam Vitals reviewed. Constitutional: General: He is not in acute distress. (more content not included)...[facility]02-22-2022 [place]02-22-2022 [place]02-21-2022 [place]02-21-2022 Note [facility]02-20-2022 [place] 06-26-2021 [place]02[place]19-2022 [place]02-19-2022 [place]02[place]18-2022 [place]02[place]18-2022 [place]02-18-2022 [place]02[place]17-2022 [place]02[place]17-2022 Note [facility]02-17-2022 [place] 06-22-2021 NoteHNO ID: [id number] Author: Xiomy England RN Service: Nursing Author Type: Registered Nurse Type: Nursing Progress Note Filed: 06/22/2021 7:22 PM Note Text: RT contacted as pt has wheezing auscultated and same auditory. For prn Treatment.[facility]02-16-2022 [place]02[place]16-2022 [place]02[place]16-2022 [place]02[place]16-2022 [place]02[place]16-2022 [place]02[place]15-2022 [place]02[place]15-2022 Note [facility]02-15-2022 [place] 06-21-2021 [place]02[place]14-2022 [place]02[place]14-2022 [place]02[place]14-2022 [place]02[place]14-2022 [place]02[place]14-2022 [place]02-13-2022 [place]02[place]13-2022 Note [facility]02-13-2022 [place] 06-19-2021 [place]02-13-2022 [place]02[place]12-2022 [place]02[place]12-2022 [place]02[place]12-2022 [place]02-12-2022 [place]02[place]12-2022 [place]02[place]12-2022 Note [facility]02-12-2022 NoteHNO ID: [id number] Author: Interface Note Service: ? Author Type: ? Type: Progress Notes Filed: 06/18/2021 3:10 AM Note Text: Epic Scheduled Downtime: 06/18/2021 1:00:00 AM to 06/18/2021 2:27:[facility] [place]20[facility] Note [facility]02-11-2022 [place] 06-17-2021 [place]02[place]11-2022 [place]02[place]11-2022 [place]02-10-2022 [place]02-10-2022 [place]02[place]10-2022 [place]02[place]10-2022 [place]02[place]10-2022 Note [facility]02-10-2022 [place] 06-15-2021 [place]02-09-2022 NoteHNO ID: [id number] Author: Lamonte Kline DO Service: Neurology ICU Author Type: Resident Type: Plan of Care Filed: 06/15/2021 6:21 PM Note Text: Patient's daughter Melissa updated on plan of care and critical condition, all questions answered.[facility]02-09-2022 [place]02-09-2022 [place]02-09-2022 [place]02-09-2022 [place]02-09-2022 Note [facility]02-09-2022 [place] 06-15-2021 [place]02-08-2022 [place]02[place]08-2022 [place]02[place]08-2022 [place]02[place]08-2022 [place]02[place]07-2022 [place]02[place]07-2022 [place]02[place]07-2022 Note [facility]02-07-2022 [place] 06-12-2021 [place]02[place]06-2022 [place]02[place]06-2022 [place]02[place]05-2022 [place]02[place]05-2022 [place]02[place]04-2022 [place]02[place]04-2022 [place]02[place]04-2022 Note [facility]02-04-2022 [place] 06-09-2021 [place]02[place]03-2022 [place]02[place]03-2022 [place]02-03-2022 [place]02[place]02-2022 [place]02-02-2022 NoteHNO ID: [id number] Author: Luis Diaz RN Service: ? Author Type: Registered Nurse Type: Nursing Progress Note Filed: 06/08/2021 9:23 AM Note Text: Patient off the floor to OR at this time.[facility]02-02-2022 [place]02-02-2022 [place] 06-08-2021 NoteHNO ID: [id number] Author: Eloise Samuel RN Service: ? Author Type: Registered Nurse Type: Nursing Progress Note Filed: 06/08/2021 12:46 AM Note Text: Dr. Brito notified of changes throughout shift. No new orders at [facility] time[facility] [place] 06-07-2021 NoteHNO ID: [id number] Author: Eloise Samuel RN Service: ? Author Type: Registered Nurse Type: Nursing Progress Note Filed: 06/07/2021 8:01 PM Note Text: Neuro surg [employer] notified of downward deviation of pupils. No new orders at this time.[facility]02-01-20[place] Note [facility]01-31-2022 [place] 06-05-2021 [place] NoteHNO ID: [id number] Author: Jermaine Miller PA-C Service: Neurosurgery Author Type: Physician Animal Nutritionist Type: Plan of Care Filed: 06/04/2021 1:59 PM Note Text: Discussed with Dr. Charles CT brain results. At this time, continue with EVD at 5 [facility]01-29-2022 [place] 06-04-2021 [place] NoteHNO ID: [id number] Author: Mauricio Frank DO Service: Neurology ICU Author Type: Physician Type: Plan of Care Filed: 06/03/2021 2:38 PM Note Text: I spoke with Melissa and updated her over the phone. Mauricio Frank, [facility]01-28-2022 [place]01[place]28[place] Note [facility]01-26-2022 [place] 06-01-2021 [place]01[place]26[place]20[place]01[place]26[place]20[place]26[place]25[place] Note [facility]01-25-2022 [place] 05[place]31-[place] Diagnosis Leg swelling- Primary Swelling of limb Acute deep vein thrombosis (DVT) of proximal vein of lower extremity, unspecified laterality (HCC) DVT, lower extremity, recurrent, unspecified laterality (HCC) Moderate malnutrition (HCC) Malnutrition of moderate degree History of seizures Personal history of other disorders of nervous system and sense organs documented in this encounter [facility] Work Phone: Evaluation noteNo assessment information available [facility] Work Phone: Evaluation note* Diagnosis [...] tract symptoms (LUTS) [facility] Left flank pain Abdominal pain, unspecified site Calculus of ureter [facility] Diagnosis Left flank pain- Primary Abdominal pain, unspecified site BPH with urinary obstruction Hypertrophy of prostate with urinary obstruction and other lower urinary tract symptoms (LUTS) History of kidney stones [facility] Name Dates Details Instructions not documented [id number] Work Phone: Instructions* Name Dates Details Instructions not documented [id number] [place] Work Phone: Reason for referral (narrative)No reason for referral [facility] Work Phone: Advance Directives No Advanced Directives Records FoundDocuments on File Type Date Recorded Patient Packager Head Expl anation Advance Directives and Living Will Power of Classification And Treatment Director Documents on File Type Date Recorded Patient Packager Head Expl anation Advance Directive(s) 06/02/2021 2:45 PM [...] Maker Relationship: 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 Adult Children (account maintenance representative) Documents on File Type Date Recorded Patient Packager Head Expl anation ACP-Advance Directive ACP-Power of Classification And Treatment Director Latest Code Status on File Code Status Date Activated Date Inactivated Comments Full Code 10/21/2021 4:09 AM Healthcare Agents on File Name Relationship Healthcare Agent Relationshi p Communication Melissa Gurpreet Child Primary Decision Maker deann Gurpreet Child Secondary Decision Maker Documents on File Type Date Recorded Patient Packager Head Expl anation ACP-Advance Directive ACP-Power of Classification And Treatment Director ACP-Do Not Resuscitate 11/01/2021 7:03 AM Latest Code Status on File Code Status Date Activated Date Inactivated Comments Full Code 10/21/2021 4:09 AM 10/29/2021 7:25 PM Healthcare Agents on File Name Relationship Healthcare Agent Relationshi p Communication Melissa Gurpreet Child Primary Decision Maker deann Gurpreet Child Secondary Decision Maker Documents on File Type Date Recorded Patient Packager Head Expl anation ACP-Do Not Resuscitate 11/03/2021 10:15 AM ACP-Do Not Resuscitate 11/01/2021 7:03 AM Healthcare Agents on File Name Relationship Healthcare Agent Relationshi p Communication Melissa Gurpreet Child Primary Decision Maker deann Gurpreet Child Secondary Decision Maker Documents on File Type Date Recorded Patient Packager Head Expl anation ACP-Do Not Resuscitate 11/03/2021 10:15 [...] Documents on File Type Date Recorded Patient Packager Head Expl anation DNR (Do Not Resuscitate) 10/31/2021 DNR (Do Not Resuscitate) 10/21/2021 Documents on File Type Date Recorded Patient Packager Head Expl anation DNR (Do Not Resuscitate) 10/31/2021 [...] WORK LABWORK Chief Complaint LAB WORK LABWORK [facility] LAB WORK [facility] LABWORK Chief Complaint LAB WORK LABWORK [facility] LAB WORK [facility]WORK LABWORK LABWORK [facility] LAB WORK [facility] LABWORK [facility] LAB WORK LABWORK [facility] LAB WORK LABWORK [facility] LABWORK Chief Complaint LAB WORK LABWORK [facility] LAB WORK [facility] LABWORK LABWORK LABWORK [facility] LAB WORK [facility]FP LABWORK [facility] LAB WORK LABWORK [facility] LAB WORK LABWORK [facility] LABWORK [facility] LABWORK LABWORK Chief Complaint LAB WORK LABWORK [facility] LAB WORK [facility] LABWORK LABWORK LABWORK MCFP LAB WORK MCFP LABWORK MCFP LAB WORK LABWORK MCFP LAB WORK LABWORK MCFP LABWORK MCFP LABWORK LABWORK MCFP LAB WORK Chief Complaint LABWORK MCFP LAB WORK MCFP LABWORK LABWORK LABWORK MCFP LAB WORK MCFP LABWORK MCFP LAB WORK LABWORK MCFP LAB WORK LABWORK MCFP LABWORK MCFP LABWORK LABWORK LABWORK MCFP LAB WORK Chief Complaint LABWORK MCFP LAB WORK MCFP LABWORK LABWORK LABWORK MCFP LAB WORK MCFP LABWORK MCFP LAB WORK LABWORK MCFP LAB WORK LABWORK MCFP LABWORK MCFP LABWORK LABWORK LABWORK MCFP LAB WORK LABWORK MCFP LABWORK MCFP LAB WORK [facility] LABWORK Chief Complaint [facility] LAB WOR K [facility] LABWORK LABWORK LABWORK [facility] LAB WORK MCFP LABWORK MCFP LAB WORK LABWORK [facility] LAB WORK LABWORK MCFP LABWORK [facility] LABWORK LABWORK LABWORK [facility] LAB WORK LABWORK [facility]FP LABWORK MCFP LAB WORK MCFP LABWORK [facility] LAB WORK Chief Complaint [facility] LABWORK LABWORK LABWORK [facility] LAB WORK [facility]FP LABWORK [facility] LAB WORK LABWORK [facility] LAB WORK LABWORK [facility] LABWORK [facility] LABWORK LABWORK LABWORK [facility] LAB WORK LABWORK [facility] LABWORK [facility] LAB WORK [facility] LABWORK LABWORK [facility] LAB WORK Chief Complaint [facility] LAB WOR K [facility] LABWORK [facility] LAB WORK LABWORK [facility] LAB WORK LABWORK [facility] LABWORK [facility] LABWORK LABWORK LABWORK [facility] LAB WORK LABWORK [facility] LABWORK [facility] LAB WORK [facility] LABWORK LABWORK LABWORK [facility] LAB WORK MCFP PATIENT [facility]FP LABWORK [facility] LABWORK Chief Complaint LABWORK [facility] LAB WORK LABWORK [facility] LABWORK [facility] LABWORK LABWORK LABWORK [facility] LAB WORK LABWORK [facility] LABWORK [facility]FP LAB WORK [facility] LABWORK LABWORK LABWORK [facility] LAB WORK MCFP PATIENT [facility]FP LABWORK [facility] LABWORK [facility] LAB WORK Chief Complaint LABWORK [facility] LABWORK [facility] LABWORK LABWORK LABWORK [facility] LAB WORK LABWORK [facility]FP LABWORK [facility]FP LAB WORK [facility] LABWORK LABWORK LABWORK [facility] LAB WORK MCFP PATIENT [facility]FP LABWORK MCFP LABWORK [facility] LAB WORK [facility] LAB WORK [facility] LAB WORK Chief Complaint LABWORK LABWORK [facility] LAB WORK MCFP PATIENT [facility]FP LABWORK [facility]FP LABWORK [facility] LAB WORK MCFP LAB WORK MCFP LAB WORK MCFP LABWORK [facility] LABWORK LABWORK [facility] LAB WORK LABWORK Chief Complaint [facility] LAB WOR K [facility] PATIENT [facility] LABWORK [facility] LABWORK [facility] LAB WORK [facility] LAB WORK [facility] LAB WORK [facility] LABWORK [facility] LABWORK LABWORK [facility] LAB WORK LABWORK [facility] LABWORK Chief Complaint [facility]FP PATIENT [facility] LABWORK [facility] LABWORK [facility] LAB WORK [facility] LAB WORK [facility] LAB WORK [facility] LABWORK [facility] LABWORK LABWORK [facility] LAB WORK LABWORK [facility] LABWORK [facility] LABWORK Chief Complaint [facility] LABWORK [facility] LAB WORK [facility] LAB WORK [facility] LAB WORK [facility] LABWORK [facility] LABWORK LABWORK [facility] LAB WORK LABWORK [facility] LABWORK [facility] LABWORK [facility] LABWORK Chief Complaint [facility] LABWORK [facility] LAB WORK [facility] LAB WORK [facility] LAB WORK [facility] LABWORK [facility] LABWORK LABWORK [facility] LAB WORK LABWORK [facility] LABWORK [facility] LABWORK [facility] LABWORK [facility] LABWORK Chief Complaint [facility] LABWORK LABWORK [facility] LAB WORK LABWORK [facility] LABWORK [facility] LABWORK [facility] LABWORK [facility] LABWORK [facility] LABWORK LABWORK [facility] LABWORK Chief Complaint LABWORK [facility] LAB WORK LABWORK [facility] LABWORK [facility] LABWORK [facility] LABWORK [facility] LABWORK [facility] LABWORK LABWORK LABWORK [facility] LABWORK [facility] LAB WORK [facility] LABWORK [facility] LAB WORK Chief Complaint LABWORK [facility] LAB WORK LABWORK [facility] LABWORK [facility] LABWORK [facility] LABWORK [facility] LABWORK [facility] LABWORK LABWORK LABWORK [facility] LABWORK [facility] LAB WORK [facility] LABWORK [facility] LAB WORK [facility] LABWORK Chief Complaint LABWORK [facility] LAB WORK LABWORK [facility] LABWORK [facility] LABWORK [facility] LABWORK [facility] LABWORK [facility] LABWORK LABWORK LABWORK [facility] LABWORK [facility] LAB WORK [facility] LABWORK [facility] LAB WORK [facility] LABWORK LABWORK Chief Complaint [facility] LABWORK [facility] LABWORK [facility] LABWORK [facility] LABWORK [facility] LABWORK LABWORK LABWORK [facility] LABWORK [facility] LAB WORK [facility] LABWORK [facility] LAB WORK [facility] LABWORK LABWORK [facility] LABWORK Chief Complaint [facility] LABWORK [facility] LABWORK [facility] LABWORK [facility] LABWORK [facility] LABWORK LABWORK LABWORK [facility] LABWORK [facility] LAB WORK [facility] LABWORK [facility] LAB WORK [facility] LABWORK LABWORK [facility] LABWORK LABWORK Chief Complaint [facility] LABWORK LABWORK LABWORK [facility] LABWORK [facility] LAB WORK [facility] LABWORK [facility] LAB WORK [facility] LABWORK LABWORK [facility] LABWORK LABWORK [facility] LAB WORK [facility] LAB WORK [facility] LABWORK Chief Complaint LABWORK [facility] LABWORK LABWORK [facility] LAB WORK [facility] LAB WORK [facility] LABWORK [facility] LABWORK [facility] LAB WORK [facility] LAB WORK [facility] LAB WORK LABWORK [facility] LABWORK Chief Complaint [facility] LAB WOR K [facility] LAB WORK [facility] LABWORK [facility] LABWORK [facility] LAB WORK [facility] LAB WORK [facility] LAB WORK LABWORK [facility] LABWORK LABWORK [facility] LAB WORK [facility] LAB WORK Chief Complaint [facility] LAB WOR K [facility] LABWORK [facility] LABWORK [facility] LAB WORK [facility] LAB WORK [facility] LAB WORK LABWORK [facility] LABWORK LABWORK [facility] LAB WORK [facility] LAB WORK Chief Complaint [facility] LABWORK [facility] LABWORK [facility] LAB WORK [facility] LAB WORK [facility] LAB WORK LABWORK [facility] LABWORK LABWORK [facility] LAB WORK [facility] LAB WORK [facility] LABWORK LABWORK LABWORK Chief Complaint [facility] LAB WOR K [facility] LAB WORK [facility] LAB WORK LABWORK [facility] LABWORK LABWORK [facility] LAB WORK [facility] LAB WORK [facility] LABWORK LABWORK LABWORK LABWORK LABWORK LABWORK Chief Complaint [facility] LAB WOR K LABWORK [facility] LABWORK LABWORK [facility] LAB WORK [facility] LAB WORK [facility] LABWORK LABWORK LABWORK LABWORK LABWORK [facility] LABWORK [facility] LAB WORK LABWORK [facility] LAB WORK [facility] LAB WORK Chief Complaint [facility] LAB WOR K LABWORK [facility] LABWORK LABWORK [facility] LAB WORK [facility] LAB WORK [facility] LABWORK LABWORK LABWORK LABWORK LABWORK [facility] LABWORK [facility] LAB WORK LABWORK [facility] LAB WORK [facility] LAB WORK [facility] LABWORK Chief Complaint [facility] LAB WOR K [facility] LAB WORK [facility] LABWORK LABWORK LABWORK LABWORK LABWORK [facility] LABWORK [facility] LAB WORK LABWORK [facility] LAB WORK [facility] LAB WORK [facility] LABWORK NUSING HOME LAB WORK Chief Complaint [facility] LAB WOR K [facility] LABWORK LABWORK LABWORK LABWORK LABWORK [facility] LABWORK [facility] LAB WORK LABWORK [facility] LAB WORK [facility] LAB WORK [facility] LABWORK NUSING HOME LAB WORK LABWORK Chief Complaint [facility] LAB WOR K [facility] LABWORK LABWORK LABWORK LABWORK LABWORK [facility] LABWORK [facility] LAB WORK LABWORK [facility] LAB WORK [facility] LAB WORK [facility] LABWORK NUSING HOME LAB WORK [facility] LABWORK LABWORK Chief Complaint LABWORK [facility] LAB WORK [facility] LAB WORK [facility] LABWORK NUSING HOME LAB WORK [facility] LABWORK LABWORK [facility] LABWORK [facility] LAB WORK LABWORK LABWORK Chief Complaint NUSING HOME LAB WORK [facility] LABWORK LABWORK [facility] LABWORK [facility] LAB WORK LABWORK [facility] LAB WORK LABWORK LABWORK Chief Complaint NUSING HOME LAB WORK [facility] LABWORK LABWORK [facility] LABWORK [facility] LAB WORK LABWORK [facility] LAB WORK LABWORK [facility] LAB WORK LABWORK Chief Complaint [facility] LABWORK LABWORK [facility] LABWORK [facility] LAB WORK LABWORK [facility] LAB WORK LABWORK [facility] LAB WORK LABWORK LABWORK Chief Complaint [facility] LABWORK LABWORK [facility] LABWORK [facility] LAB WORK LABWORK [facility] LAB WORK LABWORK [facility] LAB WORK LABWORK LABWORK LABWORK Chief Complaint [facility] LABWORK LABWORK [facility] LABWORK [facility] LAB WORK LABWORK [facility] LAB WORK LABWORK [facility] LAB WORK LABWORK LABWORK LABWORK LABWORK Chief Complaint [facility] LABWORK LABWORK [facility] LABWORK [facility] LAB WORK LABWORK [facility] LAB WORK LABWORK [facility] LAB WORK LABWORK LABWORK [facility] LAB WORK LABWORK LABWORK LABWORK Chief Complaint LABWORK [facility] LABWORK [facility] LAB WORK LABWORK [facility] LAB WORK LABWORK [facility] LAB WORK LABWORK LABWORK [facility] LAB WORK LABWORK LABWORK LABWORK LABWORK LABWORK LABWORK LABWORK Chief Complaint [facility] LABWORK [facility] LAB WORK LABWORK [facility] LAB WORK LABWORK [facility] LAB WORK LABWORK LABWORK [facility] LAB WORK LABWORK LABWORK LABWORK LABWORK LABWORK LABWORK LABWORK LABWORK Chief Complaint LABWORK [facility] LAB WORK LABWORK [facility] LAB WORK LABWORK LABWORK [facility] LAB WORK LABWORK LABWORK LABWORK LABWORK LABWORK LABWORK LABWORK LABWORK LABWORK Chief Complaint [facility] LABWORK LABWORK LABWORK LABWORK LABWORK [facility] LABWORK [facility] LAB WORK LABWORK [facility] LAB WORK [facility] LAB WORK [facility] LABWORK NUSING HOME LAB WORK [facility] LAB[facility] LABWORK [facility] LABWORK [facility] LAB WORK Chief Complaint Admit Date [facility] LAB WORK March 13, 2024 5:00am LABWORK March 14, 2024 5 :00am [facility] LAB WORK March 17 4 5:00am [facility] LAB WORK March 18 5:00am [facility] LAB WORK March 19 4 4:00am [facility] LAB WORK March 20 4 5:00am [facility] LAB WORK March 24 4 5:00am [facility] LAB WORK March 27 4 5:00am LABWORK March 31, 2024 5:00am [facility] LAB WORK April 04 4 5:00am LABWORK April 07, 2024 5 :00am [facility] LAB WORK April 10, 2024 5:00am [facility] LAB WORK April 14, 2024 5:00am [facility] LAB WORK April 17 5:00am LABWORK April 21, 2024 5:00am [facility] LAB WORK April 24 4:00am LABWORK April 28, 2024 5:00am [facility] LAB WORK May 01 4:00am [facility] LAB WORK May 05 5:00am [facility] LAB WORK May 08, 2024 5:00am [facility] LAB WORK May 09, 2024 4:00am LABWORK May 12, 2024 5: 00am [facility] LAB WORK May 15, 2024 5:00am [facility] LAB WORK May 19, 2024 4:00am [facility] LAB WORK May 20, 2024 5:00am [facility] LAB WORK May 22, 2024 5:00am LABWORK May 26, 2024 5 :00am [facility] LAB WORK May 29, 2024 5:00am [facility] LAB WORK June 02, 2024 5:00am [facility] LAB WORK June 05, 2024 5:00am LABWORK June 09, 2024 5 :00am [facility] LAB WORK June 12, 2024 5:00am [facility] LAB WORK June 16 5:00am [facility] LAB WORK June 19 5:00am LABWORK June 23, 2024 5:00am [facility] LAB WORK June 26 5:00am [facility] LAB WORK June 30 5:00am Chief Complaint Admit Date LABWORK April 07, 2024 5 :00am [facility] LAB WORK April 10, 2024 5:00am [facility] LAB WORK April 14, 2024 5:00am [facility] LAB WORK April 17 5:00am LABWORK April 21, 2024 5:00am [facility] LAB WORK April 24 4:00am LABWORK April 28, 2024 5:00am [facility] LAB WORK May 01 4:00am [facility] LAB WORK May 05 5:00am [facility] LAB WORK May 08, 2024 5:00am [facility] LAB WORK May 09, 2024 4:00am LABWORK May 12, 2024 5: 00am [facility] LAB WORK May 15, 2024 5:00am [facility] LAB WORK May 19, 2024 4:00am [facility] LAB WORK May 20, 2024 5:00am [facility] LAB WORK May 22, 2024 5:00am LABWORK May 26, 2024 5 :00am [facility] LAB WORK May 29, 2024 5:00am [facility] LAB WORK June 02, 2024 5:00am [facility] LAB WORK June 05, 2024 5:00am LABWORK June 09, 2024 5 :00am [facility] LAB WORK June 12, 2024 5:00am [facility] LAB WORK June 16 5:00am [facility] LAB WORK June 19 5:00am LABWORK June 23, 2024 5:00am [facility] LAB WORK June 26 5:00am [facility] LAB WORK June 30 5:00am [facility] LAB WORK July 03 5:00am [facility] LAB WORK July 07, 2024 4: 00am LABWORK July 11, 2024 5:00 am LABWORK July 14, 2024 5:0 0am [facility] LAB WORK July 17, 2024 4 :00am [facility] LAB WORK July 24, 2024 4 :00am Chief Complaint Admit Date [facility] LAB WORK April 14, 2024 5:00am [facility] LAB WORK April 17 5:00am LABWORK April 21, 2024 5:00am [facility] LAB WORK April 24 4:00am LABWORK April 28, 2024 5:00am [facility] LAB WORK May 01 4:00am [facility] LAB WORK May 05 5:00am [facility] LAB WORK May 08, 2024 5:00am [facility] LAB WORK May 09, 2024 4:00am LABWORK May 12, 2024 5: 00am [facility] LAB WORK May 15, 2024 5:00am [facility] LAB WORK May 19, 2024 4:00am [facility] LAB WORK May 20, 2024 5:00am [facility] LAB WORK May 22, 2024 5:00am LABWORK May 26, 2024 5 :00am [facility] LAB WORK May 29, 2024 5:00am [facility] LAB WORK June 02, 2024 5:00am [facility] LAB WORK June 05, 2024 5:00am LABWORK June 09, 2024 5 :00am [facility] LAB WORK June 12, 2024 5:00am [facility] LAB WORK June 16 5:00am [facility] LAB WORK June 19 5:00am LABWORK June 23, 2024 5:00am [facility] LAB WORK June 26 5:00am [facility] LAB WORK June 30 5:00am [facility] LAB WORK July 03 5:00am [facility] LAB WORK July 07, 2024 4: 00am LABWORK July 11, 2024 5:00 am LABWORK July 14, 2024 5:0 0am [facility] LAB WORK July 17, 2024 4 :00am [facility] LAB WORK July 24, 2024 4 :00am LABWORK July 25, 2024 5:0 0am Chief Complaint Admit Date [facility] LAB WORK April 14, 2024 5:00am [facility] LAB WORK April 17 5:00am LABWORK April 21, 2024 5:00am [facility] LAB WORK April 24 4:00am LABWORK April 28, 2024 5:00am [facility] LAB WORK May 01 4:00am [facility] LAB WORK May 05 5:00am [facility] LAB WORK May 08, 2024 5:00am [facility] LAB WORK May 09, 2024 4:00am LABWORK May 12, 2024 5: 00am [facility] LAB WORK May 15, 2024 5:00am [facility] LAB WORK May 19, 2024 4:00am [facility] LAB WORK May 20, 2024 5:00am [facility] LAB WORK May 22, 2024 5:00am LABWORK May 26, 2024 5 :00am [facility] LAB WORK May 29, 2024 5:00am [facility] LAB WORK June 02, 2024 5:00am [facility] LAB WORK June 05, 2024 5:00am LABWORK June 09, 2024 5 :00am [facility] LAB WORK June 12, 2024 5:00am [facility] LAB WORK June 16 5:00am [facility] LAB WORK June 19 5:00am LABWORK June 23, 2024 5:00am [facility] LAB WORK June 26 5:00am [facility] LAB WORK June 30 5:00am [facility] LAB WORK July 03 5:00am [facility] LAB WORK July 07, 2024 4: 00am LABWORK July 11, 2024 5:00 am LABWORK July 14, 2024 5:0 0am [facility] LAB WORK July 17, 2024 4 :00am [facility] LAB WORK July 21, 2024 5 :00am [facility] LAB WORK July 24, 2024 4 :00am LABWORK July 25, 2024 5:0 0am [facility] LAB WORK July 31, 2024 4 :00am Chief Complaint Admit Date [facility] LAB WORK April 17 5:00am LABWORK April 21, 2024 5:00am [facility] LAB WORK April 24 4:00am LABWORK April 28, 2024 5:00am [facility] LAB WORK May 01 4:00am [facility] LAB WORK May 05 5:00am [facility] LAB WORK May 08, 2024 5:00am [facility] LAB WORK May 09, 2024 4:00am LABWORK May 12, 2024 5: 00am [facility] LAB WORK May 15, 2024 5:00am [facility] LAB WORK May 19, 2024 4:00am [facility] LAB WORK May 20, 2024 5:00am [facility] LAB WORK May 22, 2024 5:00am LABWORK May 26, 2024 5 :00am [facility] LAB WORK May 29, 2024 5:00am [facility] LAB WORK June 02, 2024 5:00am [facility] LAB WORK June 05, 2024 5:00am LABWORK June 09, 2024 5 :00am [facility] LAB WORK June 12, 2024 5:00am [facility] LAB WORK June 16 5:00am [facility] LAB WORK June 19 5:00am LABWORK June 23, 2024 5:00am [facility] LAB WORK June 26 5:00am [facility] LAB WORK June 30 5:00am [facility] LAB WORK July 03 5:00am [facility] LAB WORK July 07, 2024 4: 00am LABWORK July 11, 2024 5:00 am LABWORK July 14, 2024 5:0 0am [facility] LAB WORK July 17, 2024 4 :00am [facility] LAB WORK July 21, 2024 5 :00am [facility] WORK July 24, 2024 4 :00am LABWORK July 25, 2024 5:0 0am [facility] LAB WORK July 28, 2024 5 :00am [facility] LAB WORK July 31, 2024 4 :00am Chief Complaint Admit Date [facility] LAB WORK April 24 4:00am LABWORK April 28, 2024 5:00am [facility] LAB WORK May 01 4:00am [facility] LAB WORK May 05 5:00am [facility] LAB WORK May 08, 2024 5:00am [facility] LAB WORK May 09, 2024 4:00am LABWORK May 12, 2024 5: 00am [facility] LAB WORK May 15, 2024 5:00am [facility] LAB WORK May 19, 2024 4:00am [facility] LAB WORK May 20, 2024 5:00am [facility] LAB WORK May 22, 2024 5:00am LABWORK May 26, 2024 5 :00am [facility] LAB WORK May 29, 2024 5:00am [facility] LAB WORK June 02, 2024 5:00am [facility] LAB WORK June 05, 2024 5:00am LABWORK June 09, 2024 5 :00am [facility] LAB WORK June 12, 2024 5:00am [facility] LAB WORK June 16 5:00am [facility] WORK June 19 5:00am LABWORK June 23, 2024 5:00am [facility] LAB WORK June 26 5:00am [facility] LAB WORK June 30 5:00am [facility] LAB WORK July 03 5:00am [facility] WORK July 07, 2024 4: 00am LABWORK July 11, 2024 5:00 am LABWORK July 14, 2024 5:0 0am [facility] WORK July 17, 2024 4 :00am [facility] WORK July 21, 2024 5 :00am [facility] WORK July 24, 2024 4 :00am LABWORK July 25, 2024 5:0 0am [facility] WORK July 28, 2024 5 :00am [facility] WORK July 31, 2024 4 :00am LABWORK August 04, 2024 5:0 0am Chief Complaint Admit Date [facility] LAB WORK May 15, 2024 5:00am [facility] WORK May 19, 2024 4:00am [facility] WORK May 20, 2024 5:00am [facility] WORK May 22, 2024 5:00am LABWORK May 26, 2024 5 :00am [facility] WORK May 29, 2024 5:00am [facility] WORK June 02, 2024 5:00am [facility] WORK June 05, 2024 5:00am LABWORK June 09, 2024 5 :00am [facility] WORK June 12, 2024 5:00am [facility] WORK June 16 5:00am [facility] WORK June 19 5:00am LABWORK June 23, 2024 5:00am [facility] LAB WORK June 26 5:00am [facility] LAB WORK June 30 5:00am [facility] WORK July 03 5:00am [facility] WORK July 07, 2024 4: 00am LABWORK July 11, 2024 5:00 am LABWORK July 14, 2024 5:0 0am [facility] WORK July 17, 2024 4 :00am [facility] WORK July 21, 2024 5 :00am [facility] WORK July 24, 2024 4 :00am LABWORK July 25, 2024 5:0 0am [facility] WORK July 28, 2024 5 :00am [facility] WORK July 31, 2024 4 :00am LABWORK August 04, 2024 5:0 0am LABWORK August 07, 2024 5:00 am [facility] LAB WORK August 11, 2024 5: 00am [facility] WORK August 14, 2024 5 :00am [facility] WORK August 18, 2024 5 :00am Chief Complaint Admit Date [facility] LAB WORK May 20, 2024 5:00am [facility] WORK May 22, 2024 5:00am LABWORK May 26, 2024 5 :00am [facility] WORK May 29, 2024 5:00am [facility] WORK June 02, 2024 5:00am [facility] LAB WORK June 05, 2024 5:00am LABWORK June 09, 2024 5 :00am [facility] LAB WORK June 12, 2024 5:00am [facility] LAB WORK June 16 5:00am [facility] LAB WORK June 19 5:00am LABWORK June 23, 2024 5:00am [facility] LAB WORK June 26 5:00am [facility] LAB WORK June 30 5:00am [facility] LAB WORK July 03 5:00am [facility] WORK July 07, 2024 4: 00am LABWORK July 11, 2024 5:00 am LABWORK July 14, 2024 5:0 0am [facility] LAB WORK July 17, 2024 4 :00am [facility] WORK July 21, 2024 5 :00am [facility] WORK July 24, 2024 4 :00am LABWORK July 25, 2024 5:0 0am [facility] WORK July 28, 2024 5 :00am [facility] WORK July 31, 2024 4 :00am LABWORK August 04, 2024 5:0 0am LABWORK August 07, 2024 5:00 am [facility] LAB WORK August 11, 2024 5: 00am [facility] WORK August 14, 2024 5 :00am [facility] WORK August 18, 2024 5 :00am LABWORK August 28, 2024 5:0 0am Chief Complaint Admit Date [facility] LAB WORK May 22, 2024 5:00am LABWORK May 26, 2024 5 :00am [facility] LAB WORK May 29, 2024 5:00am [facility] WORK June 02, 2024 5:00am [facility] WORK June 05, 2024 5:00am LABWORK June 09, 2024 5 :00am [facility] LAB WORK June 12, 2024 5:00am [facility] LAB WORK June 16 5:00am [facility] WORK June 19 5:00am LABWORK June 23, 2024 5:00am [facility] LAB WORK June 26 5:00am [facility] LAB WORK June 30 5:00am [facility] LAB WORK July 03 5:00am [facility] WORK July 07, 2024 4: 00am LABWORK July 11, 2024 5:00 am LABWORK July 14, 2024 5:0 0am [facility] LAB WORK July 17, 2024 4 :00am [facility] LAB WORK July 21, 2024 5 :00am [facility] LAB WORK July 24, 2024 4 :00am LABWORK July 25, 2024 5:0 0am [facility] WORK July 28, 2024 5 :00am [facility] LAB WORK July 31, 2024 4 :00am LABWORK August 04, 2024 5:0 0am LABWORK August 07, 2024 5:00 am [facility] LAB WORK August 11, 2024 5: 00am [facility] LAB WORK August 14, 2024 5 :00am [facility] WORK August 18, 2024 5 :00am [facility] WORK August 21, 2024 5 :00am LABWORK August 28, 2024 5:0 0am LABWORK September 01, 2024 5:0 0am Chief Complaint Admit Date [facility] LAB WORK June 05, 2024 5:00am LABWORK June 09, 2024 5 :00am [facility] LAB WORK June 12, 2024 5:00am [facility] LAB WORK June 16 5:00am [facility] LAB WORK June 19 5:00am LABWORK June 23, 2024 5:00am [facility] LAB WORK June 26 5:00am [facility] LAB WORK June 30 5:00am [facility] LAB WORK July 03 5:00am [facility] LAB WORK July 07, 2024 4: 00am LABWORK July 11, 2024 5:00 am LABWORK July 14, 2024 5:0 0am [facility] LAB WORK July 17, 2024 4 :00am [facility] LAB WORK July 21, 2024 5 :00am [facility] WORK July 24, 2024 4 :00am LABWORK July 25, 2024 5:0 0am [facility] LAB WORK July 28, 2024 5 :00am [facility] WORK July 31, 2024 4 :00am LABWORK August 04, 2024 5:0 0am LABWORK August 07, 2024 5:00 am [facility] LAB WORK August 11, 2024 5: 00am [facility] LAB WORK August 14, 2024 5 :00am [facility] LAB WORK August 18, 2024 5 :00am [facility] WORK August 21, 2024 5 :00am [facility] WORK August 25, 2024 4 :00am LABWORK August 28, 2024 5:0 0am LABWORK September 01, 2024 5:0 0am LABWORK September 04, 2024 5:00am Chief Complaint Admit Date [facility] LAB WORK June 05, 2024 5:00am LABWORK June 09, 2024 5 :00am [facility] June 12, 2024 5:00am [facility] June 16 5:00am [facility] June 19 5:00am LABWORK June 23, 2024 5:00am [facility] June 26 5:00am [facility] June 30 5:00am [facility] July 03 5:00am [facility] July 07, 2024 4: 00am LABWORK July 11, 2024 5:00 am LABWORK July 14, 2024 5:0 0am [facility] WORK July 17, 2024 4 :00am [facility] July 21, 2024 5 :00am [facility] July 24, 2024 4 :00am LABWORK July 25, 2024 5:0 0am [facility] July 28, 2024 5 :00am [facility] July 31, 2024 4 :00am LABWORK August 04, 2024 5:0 0am LABWORK August 07, 2024 5:00 am [facility] WORK August 11, 2024 5: 00am [facility] August 14, 2024 5 :00am [facility] August 18, 2024 5 :00am [facility] August 21, 2024 5 :00am [facility] August 25, 2024 4 :00am LABWORK August 28, 2024 5:0 0am LABWORK September 01, 2024 5:0 0am LABWORK September 04, 2024 5:00am LABWORK September 15, 2024 5:00a m Chief Complaint Admit Date [facility] WORK June 19 5:00am LABWORK June 23, 2024 5:00am [facility] WORK June 26 5:00am [facility] June 30 5:00am [facility] July 03 5:00am [facility] July 07, 2024 4: 00am LABWORK July 11, 2024 5:00 am LABWORK July 14, 2024 5:0 0am [facility] WORK July 17, 2024 4 :00am [facility] July 21, 2024 5 :00am [facility] July 24, 2024 4 :00am LABWORK July 25, 2024 5:0 0am [facility] WORK July 28, 2024 5 :00am [facility] WORK July 31, 2024 4 :00am LABWORK August 04, 2024 5:0 0am LABWORK August 07, 2024 5:00 am [facility] WORK August 11, 2024 5: 00am [facility] August 14, 2024 5 :00am [facility] August 18, 2024 5 :00am [facility] August 21, 2024 5 :00am [facility] August 25, 2024 4 :00am LABWORK August 28, 2024 5:0 0am LABWORK September 01, 2024 5:0 0am LABWORK September 04, 2024 5:00am [facility] September 08, 2024 4:00 am [facility] WORK September 11, 2024 5:00 am LABWORK September 15, 2024 5:00a m [facility] WORK September 25, 2024 5:0 0am [facility] September 30, 2024 4:0 0am Chief Complaint Admit Date [facility] WORK June 12, 2024 5:00am [facility] June 16 5:00am [facility] June 19 5:00am LABWORK June 23, 2024 5:00am [facility] WORK June 26 5:00am [facility] WORK June 30 5:00am [facility] July 03 5:00am [facility] WORK July 07, 2024 4: 00am LABWORK July 11, 2024 5:00 am LABWORK July 14, 2024 5:0 0am [facility] WORK July 17, 2024 4 :00am [facility] July 21, 2024 5 :00am [facility] WORK July 24, 2024 4 :00am LABWORK July 25, 2024 5:0 0am [facility] WORK July 28, 2024 5 :00am [facility] WORK July 31, 2024 4 :00am LABWORK August 04, 2024 5:0 0am LABWORK August 07, 2024 5:00 am [facility] WORK August 11, 2024 5: 00am [facility] WORK August 14, 2024 5 :00am [facility] August 18, 2024 5 :00am [facility] August 21, 2024 5 :00am [facility] August 25, 2024 4 :00am LABWORK August 28, 2024 5:0 0am LABWORK September 01, 2024 5:0 0am LABWORK September 04, 2024 5:00am [facility] WORK September 08, 2024 4:00 am LABWORK September 15, 2024 5:00a m Chief Complaint Admit Date [facility] WORK July 07, 2024 4: 00am LABWORK July 11, 2024 5:00 am LABWORK July 14, 2024 5:0 0am [facility] WORK July 17, 2024 4 :00am [facility] WORK July 21, 2024 5 :00am [facility] July 24, 2024 4 :00am LABWORK July 25, 2024 5:0 0am [facility] WORK July 28, 2024 5 :00am [facility] WORK July 31, 2024 4 :00am LABWORK August 04, 2024 5:0 0am LABWORK August 07, 2024 5:00 am [facility] WORK August 11, 2024 5: 00am [facility] WORK August 14, 2024 5 :00am [facility] WORK August 18, 2024 5 :00am [facility] August 21, 2024 5 :00am [facility] WORK August 25, 2024 4 :00am LABWORK August 28, 2024 5:0 0am LABWORK September 01, 2024 5:0 0am LABWORK September 04, 2024 5:00am [facility] WORK September 08, 2024 4:00 am [facility] WORK September 11, 2024 5:00 am LABWORK September 15, 2024 5:00a m [facility] WORK September 18, 2024 5:0 0am [facility] WORK September 22, 2024 5:0 0am [facility] September 25, 2024 5:0 0am [facility] WORK September 30, 2024 4:0 0am [facility] WORK October 02, 2024 5:0 0am [facility] WORK October 09, 2024 5:0 0am Reason for Referral Specialty Diagnoses / Procedures Referred By Aki t Referred To Contact Urology Diagnoses Other fatigue Lanette Munguia DO [address] [place] [address] [facility] [place] [address] [place] [address] Referral ID Status Reason Start Date Expiration Date V isits Requested Visits Authorized [id number] Open Specialty Services Required 11/01/2021 11/01/2022 1 1 Scheduling Instructions [facility] Urology - [facility] [address] , [address] [place], [place] [address] Specialty Diagnoses / Procedures Referred By Contac t Referred To Contact IP Unit Diagnoses Heel ulceration, left, with unspecified severity (HCC) Henry Hidalgo PA [address] [place] [address] [facility] [address] [place] [id number] Referral ID Status Reason Start Date Expiration Date V isits Requested Visits Authorized [id number] Open Specialty Services Required 12/22/2021 12/22/2022 1 1 Scheduling Instructions [facility] - [facility] [address] [place] [address] Comments Please use the parking lot located on [facility] or [email or web address]. There are handicap parking spots located in a small lot beside the wound care entrance off of [facility]. Please be advised there is a small incline from those handicap spots to our main door. Bring photo ID and insurance card to photocopy. Wear loose fitting clothing (to easily access wound). Bring list of medications (or can be sent by office). Check in at Registration for your first visit. Please call us directly with any questions [phone]. We look forward to helping you heal. Specialty Diagnoses / Procedures Referred By Contac t Referred To Contact Radiology Diagnoses Left flank pain Calculus of ureter Procedures CT abdomen pelvis wo IV contrast Rebecca Buck MD [address] [place] [address] Referral ID Status Reason Start Date Expiration Date V isits Requested Visits Authorized [id number] Pending Review 08/13/2023 08/12/2024 1 1 Referral ID Status Reason Start Date Expiration Date Visits Re quested Visits Authorized [id number] Closed 08/17/2023 09/16/2023 1 1 Additional Source Comments Source Comments (unrecognize d section and content) In the event this informatio n is protected by the Federal Confidentiality of Alcohol and Drug Abuse Patient Records regulations: The Federal rules restrict any use of the information to criminally investigate or prosecute any alcohol or drug abuse patient.[facility] the event this information is protected by the Federal Confidentiality of Alcohol and Drug Abuse Patient Records regulations: The Federal rules restrict any use of the information to criminally investigate or prosecute any alcohol or drug abuse patient.[facility] (unrecognized sect ion and content) No Status Records FoundNo Status Records FoundNo Status Records FoundNo Status Records FoundNo Status Records FoundNo Status Records FoundNo Status Records FoundNo Status Records FoundNo Status Records FoundNo Status Records Found INFORMATION SOURCE (unrecogn ized section and content) DATE CREATED AUTHOR 05/20/2021 [facility] DATE CREATED AUTHOR AUTHOR'S ORGANIZ ATION 06/07/[address] [facility] DATE CREATED AUTHOR AUTHOR'S ORGANIZ ATION 08/02/2021 [facility] DATE CREATED AUTHOR AUTHOR'S ORGANIZ ATION 12/09/2021 [facility] DATE CREATED AUTHOR AUTHOR'S ORGANIZ ATION 12/29/2021 [facility] DATE CREATED AUTHOR AUTHOR'S ORGANIZ ATION 02/04/2022 [facility] DATE CREATED AUTHOR AUTHOR'S ORGANIZ ATION 03/03/2022 [facility] DATE CREATED AUTHOR AUTHOR'S ORGANIZ ATION 09/15/2023 [facility] DATE CREATED AUTHOR AUTHOR'S ORGANIZ ATION 01/22/2025 [facility] Reason for Visit (unrecogniz ed section and content) Reason Comments Missed Appointment Reason Comments Leg Swelling Blood clots Reason Comments Altered Mental Status Pt presents to ED via [facility] for complaint listed. Pt is from [place] [facility]. Pt's LKW was 1000 hours today. Per EMS, pt had a - [place]. Pt denies CP, SOB, and N/V. Pt seems slow to respond, slightly confused at this time. Reason Comments [facility]elitis [facility], facility did xrays on left lower leg and and have concerns for possible osteomyelitis A&Ox2 to self and place, stated year 2022 preside Miss martini Reason Comments Fall Patient had unwitnes sed fall at [facility] landed on butt. Is on [...] Buck MD [address] [place] [address] Referral ID Status Reason Start Date Expiration Date Visits Re quested Visits Authorized [id number] Closed 08/17/2023 09/16/2023 1 1 Reason Comments [...] Care Provider Active Start: August 11, 2024 Kraon NOVAK MD Attending Provider Active Start: August [...] Status Dates Carlos NOVAK Attending Provider Active 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 Start Date End Date Mateus Burris [address] [place] [address] PCP - General Family Practice 11/12/19 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 [place] [address] [place] [address] PCP - General Family Medicine 09/09/20 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 Start [place] [address] [place] [address] PCP - General Family Medicine 09/09/20 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 Start [place] [address] [place] [address] PCP - General Family Medicine 09/09/20 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 Start Date End Date Carlos Cavazos MD [address] [place] [address] PCP - General Internal Medicine 02/20/22 Team [...] Monika Staley MD Primary Care Provider Active 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 Start Date End Date Carlos Cavazos [address] [place] [phone] PCP - General 12/21/21 Rebecca Buck MD [address] [address] Surgeon Urology 06/25/23 Team Status: Inactive Member [...] NOVAK Attending Provider, Referring Provi lupillo Active 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 Start Date End Date Carlos Cavazos [address] [place] [phone] PCP - General 12/21/21 Rebecca Buck MD [address] [address] Surgeon Urology 06/25/23 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 Start Date End Date Carlos Cavazos [facility] [place] [phone] PCP - General 12/21/21 Rebecca Buck MD [address] [address] Surgeon Urology 06/25/23 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 Start Date End Date Carlos Cavazos [address] [place] [phone] PCP - General 12/21/21 Rebecca Buck MD [address] [address] Surgeon Urology 06/25/23 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 Start Date End Date Carlos Cavazos [address] [place] [phone] PCP - General 12/21/21 Rebecca Buck MD [address] [address] Surgeon Urology 06/25/23 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 Monika Staley MD Primary Care Provider Active Start: March 13, 2024 End: March 13, 2024 [facility] Attending Provider Active Start: March 13, [...] March 17, 2024 End: March 17, 2024 [facility] Attending Provider Active Start: March 17, 2024 End: March 17, 2024 Team Status: Inactive Member Role Status Dates Dr. Monika Staley MD Primary Care Provider Active Start: March 18, 2024 End: March 18, 2024 [facility] Attending Provider Active Start: March 18, [...] March 20, 2024 End: March 20, 2024 [facility] Attending Provider Active Start: March 20, [...] March 27, 2024 End: March 27, 2024 [facility] Attending Provider Active Start: March 27, [...] Care Provider Active Start: July 07, 2024 [facility] Attending Provider Active Start: July 07, [...] Provider Active Start: July 24, 2024 Karon NOVKA MD Referring Provider Active Start: July 24, 2024 Team Status: Active Member Role Status Dates Dr. Monika Staley MD Primary Care Provider Active Start: July 25, 2024 Carlos NOVAK Attending Provider Active Sta rt: July 25, 2024 Team Status: Active Member Role Status Dates Dr. Monika Staley MD Primary Care Provider Active Start: July 31, 2024 Karon NOVKA MD Attending Provider Active Start: July 31, [...] July 14, 2024 End: July 14, 2024 Cralos NOVAK Attending Provider Active Sta rt: July [...] July 31, 2024 End: July 31, 2024 Kraon NOVAK MD Attending Provider Active Start: July [...] Status: Inactive Member Role/Relationship Status Dates Dr. Mnoika Staley MD Primary [...] BE BASED ON THE PRIMARY CLINICAL RECORDS. [facility]. provides no warranty or guarantee of the accuracy or completeness of information in this document.
[2025-01-26 09:23] LABS: Prothrombin Time (Protime)PT. 23.1 SECONDS (11.7-14.9)
== END ==
LOC: OLS.SANC 04:00
PROVIDERS: PCP General Practice
DX: Z79.899 Other long term (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 (principal); Z79.01 Long term (current) use of 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
CPT/HCPCS: 36415; 85610

== ENCOUNTER → 2025-01-29 | Outpatient (REF) | payer MEDICARE, MEDICAID, SELFPAY ==
[2025-01-29 10:27] LABS: Prothrombin Time (Protime)PT. 29.1 SECONDS (11.7-14.9)
== END ==
LOC: OLS.SANC 07:30
PROVIDERS: PCP General Practice
DX: Z79.01 Long term (current) use of 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 (principal)
CPT/HCPCS: 36415; 85610

== ENCOUNTER → 2025-02-02 | Outpatient (REF) | payer MEDICARE, MEDICAID, SELFPAY ==
[2025-02-02 08:48] LABS: Prothrombin Time (Protime)PT. 26.8 SECONDS (11.7-14.9)
== END ==
LOC: OLS.SANC 04:00
PROVIDERS: PCP General Practice
DX: Z79.01 Long term (current) use of 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 (principal)
CPT/HCPCS: 36415; 85610

== ENCOUNTER → 2025-02-05 | Outpatient (REF) | payer MEDICARE, MEDICAID, SELFPAY ==
[2025-02-05 09:43] LABS: Prothrombin Time (Protime)PT. 27.6 SECONDS (11.7-14.9)
== END ==
LOC: OLS.SANC 05:00
PROVIDERS: PCP General Practice
DX: Z79.899 Other long term (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 (principal)
CPT/HCPCS: 36415; 85610

== ENCOUNTER → 2025-02-12 | Outpatient (REF) | payer MEDICARE, MEDICAID, SELFPAY ==
[2025-02-12 10:24] LABS: Prothrombin Time (Protime)PT. 27.5 SECONDS (11.7-14.9)
== END ==
LOC: OLS.SANC 05:00
PROVIDERS: PCP General Practice
DX: Z79.899 Other long term (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 (principal)
CPT/HCPCS: 36415; 85610

== ENCOUNTER → 2025-02-16 | Outpatient (REF) | payer MEDICARE, MEDICAID, SELFPAY ==
[2025-02-16 08:29] LABS: Prothrombin Time (Protime)PT. 18.6 SECONDS (11.7-14.9)
== END ==
LOC: OLS.SANC 04:00
PROVIDERS: PCP General Practice
DX: Z79.01 Long term (current) use of 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 (principal)
CPT/HCPCS: 36415; 85610

== ENCOUNTER → 2025-02-19 05:00 | Outpatient (REF) | payer MEDICARE, MEDICAID, SELFPAY ==
[2025-02-19 09:41] LABS: Prothrombin Time (Protime)PT. 21.8 SECONDS (11.7-14.9)
== END ==
LOC: OLS.SANC 05:00
PROVIDERS: PCP General Practice
DX: Z79.01 Long term (current) use of 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 (principal)
CPT/HCPCS: 36415; 85610

== ENCOUNTER → 2025-02-23 05:00 | Outpatient (REF) | payer MEDICARE, MEDICAID, SELFPAY ==
--- OUTSIDE RECORDS SUMMARY | 2025-02-23 03:46 | XMS RPT_ITS | CCD ---
Author Organization [facility] Care Team Providers Care Roller Hand Name Role Phone Mateus Burris Primary Care Provider Monika Staley Unavailable Unavailable Leonor, Maddy L Unavailable Unavailable Update Needed Unavailable Unavailable Mateus Burrsi Primary Care Provider Wing Ritter Unavailable Unavailable Monika Staley Unavailable Unavailable Leonor, Maddy Belem Unavailable Unavailable Leonor, Maddy L Unavailable Unavailable Luís Shiela Unavailable Unavailable Unavailable Monika Staley MD Unavailable Unavailable Wing Ritter MD Unavailable Unavailable Luís Shiela Unavailable Unavailable Update Needed Unavailable Unavailable Leonor, Maddy Belem Unavailable Unavailable Mateus Burris Primary Care Provider Monika Staley MD Primary Care Provider [phone] Monika Staley MD Primary Care Provider Carlos [...] VALLADARES, Dr. Monika Horner Primary Care Provider [facility] Attending Provider [phone] Carlos Nelson Attending Provider Jonh aPscual MD, Dr. Calderon Attending Provider Jany Crisostomo [...] Provider Unava ilable Carlos Nelson Attending Provider Jonh Cardoza MD, Dr. Monika Horner Primary Care Provider Andressa VALLADARES, Dr. Calderon Attending Provider Jany Staley MD, Dr. Monika Horner Primary Care Provider Andressa VALLADARES, Dr. Calderon Attending Provider Jany Staley MD, Dr. Monika Horner Primary Care Provider Andressa VALLADARES, Dr. Calderon Attending Provider Unava ilable Carlos Nelson Attending Provider Unavailab ish Staley MD, Dr. Monika Horner Primary Care Provider Andressa VALLADARES, Dr. Calderon Attending Provider Unava ilCarlos Anglin Attending Provider Unavailab ish Staley MD, Dr. Monika Horner Primary Care Provider Andressa VALLADARES, Dr. Calderon Attending Provider Jany Staley MD, Dr. Monika Horner Primary Care Provider Carlos Nelson Attending Provider Unavailab ish Staley MD, Dr. Monika Horner Primary Care Physician Karon Corrales MD Attending Physician Unav ailable Carlos Nelson Attending Physician Unavaila Karon Miller MD Referring Provider Unava ilable Karon Shah Attending Unavail able Luís, Shiela Primary Care Unavailable [place] Karon NOVAK Attending Unavail able Luís, Shiela Primary Care Unavailable Katsaros Carlos NOVAK Attending Unavailable Luís, Shiela Primary Care Unavailable Davidkkamalla Karon NOVAK Attending Unavail able Luís, Shiela Primary Care Unavailable Luís, Shiela Primary Care Unavailable [place] Karon NOVAK Attending Unavail able Karon Shah Referring Unavail able Luís, Shiela Primary Care Unavailable DavidkkKaron Hoover Attending Unavail able KatsaCarlos Villavicencio Attending Unavailable Luís, Shiela Primary [...] Unavailable Katsaros OLS, Peter Attending Unavailable Luís, Hsiela Primary Care Unavailable [facility] Attending Tricia bustamantele Luís, Shiela Primary Care [...] [place] OLS, Mahaveer Attending Unavail able Katsaros OLS, Peter Attending Unavailable Luís, Shiela [...] Luís, Shiela Primary Care Unavailable [facility] Attending Unavai lable Luís, Shiela Primary Care Unavailable Crisostomo OLS, Babbaljeet Attending Unavailable Luís, Shiela Primary Care Unavailable Crisostomo OLS, Babbaljeet Attending Unavailable Luís, Shiela Primary Care Unavailable Katsaros SCARLET, Peter Attending Unavailable Luís, Shiela Primary Care Unavailable [facility] [place] [facility] Attending Unavai lable Luís, Shiela Primary Care Unavailable [place] OLS, Mahaveer Referring Unavail able Mukk[place]alla OLS, Carlaaveer Attending Unavail able Luís, Shiela Primary Care Unavailable Crisostomo OLS, Babbaljeet Attending Unavailable Crisostomo OLS, Babbaljeet Referring Unavailable Luís, Shiela Primary Care Unavailable Katsaros SCARLET, Peter Attending Unavailable Luís, Shiela Primary Care Unavailable [facility] [place] [facility] Attending Unavai lable Luís, Shiela Primary Care [...] Care Unavailable Crisostomo OLS, Vicentebalkarolet Attending Unavailable Crisostomo OLS, Babbaljeet Referring Unavailable Luís, Shiela Primary Care Unavailable [place] [...] Luís, Shiela Primary Care Unavailable [facility] Attending Unavai lable Luís, Shiela Primary Care Unavailable [facility] Attending Unavai lable Luís, Shiela Primary Care [...] able Luís, Shiela Primary Care Unavailable Crisostomo OLSKvng Attending Unavailable Crisostomo OLSKvng Referring Unavailable Luís, Shiela Primary Care Unavailable [facility] Attending Unavai lable Luís, Shiela Primary Care Unavailable Crisostomo OLSKvng Attending Unavailable Luís, Shiela Primary Care Unavailable [facility] Attending Unavai lable Luís, Shiela Primary Care Unavailable Luís, Shiela Primary Care Unavailable [place] OLS, Melindaer Attending Unavail able Mukkamalla OLS, Melindaer Attending Unavail able Luís, Shiela Primary Care Unavailable Crisostomo OLSKvng Attending Unavailable Luís, Shiela Primary Care Unavailable Katsaros OLS, Peter Attending Unavailable Luís, Shiela Primary Care Unavailable Crisostomo OLS, Elizabethet Attending Unavailable Luís, Shiela Primary Care Unavailable [facility] Attending Unavai lable Luís, Shiela Primary Care Unavailable Crisostomo OLSElizabethet Attending Unavailable Luís, Shiela Primary Care Unavailable Katsaros OLS, Peter Attending Unavailable Luís, Shiela Primary Care Unavailable [place] OLS, Carlaaveer Attending Unavail able Luís, Shiela Primary Care Unavailable Allergies Allergy Classification Reported Allergen(s) Allergy Type Date of Onset Reaction(s) Facility (13 sources) [facility]: (15 sources) Alcohol Propensity to adverse reactions to drug 3 Rash, Hives, Other: See Comments, Other [facility] Work Phone: (1 source) Latex Drug Allergy 0 Rash [facility] (8 sources) Cortisone Drug Allergy 2 [facility] (7 sources) Latex Allergy to substance 0 Rash [facility] Medications Current Medications Medication Drug Class(es) Dates Sig (Normalized) Sig (Original) Acetaminophen (10 sources) Start: 10-21-2021 acetaminophen (TYLENOL) tablet 650 mg Start: 09-14-2021 acetaminophen (TYLENOL) 325 MG tablet 650 mg every 6 hours as needed 0 09/14/2021 Active take 2 tablets by [facility] every eight hours acetaminophen (TYLENOL) 325 mg [...] Start: 11-01-2021 take 1 capsule by mo coh once daily tamsulosin (FLOMAX) 0.4 MG capsule [...] Take 1 tablet by joan once daily. Antacid TABS (6 sources) Antacid [...] on above: Take 1 capsule by mo [facility] three times daily. Complete Multi-Vitamin CHEW (4 [...] Active docusate sodium 50 mg / sennosides, snf 8.6 mg oral tablet (1 source) Start: [...] Units subcutaneously with meals and at bedtime. Occitan Panax Ginseng 100 MG CAPS (8 sources) Occitan Panax Ginseng 100 MG CAPS Quantity: 0 Refills: 0 Ordered: 06-Nov-2019 DO Active Occitan Panax Ginseng 100 MG Oral Capsule (4 sources) Occitan Panax Ginseng 100 MG Oral Capsule Refills: 0 Active Occitan Panax Gin mayuri 100 MG Oral Capsule Refills: 0 DO Active Occitan Panax Ginseng 100 MG Oral Capsule (2 sources) Occitan Panax Gin mayuri 100 MG Oral Capsule [...] Comment on above: Take 1 tablet by [facility] three times daily as needed. methylPREDNISolone [...] once daily. Pentoxifylline (1 source) Blood Viscosity Climbing Guide PENTOXIFYLLINE ORAL Take by mouth. 0 Active Comment on above: Take by mouth. petrolatum 0.41 mg/mg topical ointment (1 source) Start : 08-20 white petrolatum (AQUAPHOR) 41 % topical ointment Apply to affected area once daily. 0 08/20/2021 Active Comment on above: Apply to affected ar ea once daily. 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] Onset: 10-21-2021 Episodic Other aftercare (1 source) Drug therapy finding; Translations: [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] Episodic Other aftercare (2 sources) 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, [address] PT Coag (PPP) [Time] 21.8 s High 11.7-14.9 [facility] Comment on above: Order Comment: 411.2 Performed By: #### L 300.3900 ####[facility] [address] [place], [address] Prothrombin Time w/INRon INR Coag (PPP) [Relative time] 1.5 {INR} Normal [facility] Comment on above: Order Comment: 411.2 Performed By: #### L 300.3900 ####[facility] [address] [place], [address] PT Coag (PPP) [Time] 18.6 s High 11.7-14.9 [facility] Comment on above: Order Comment: 411.2 Performed By: #### L 300.3900 ####[facility] [address] [place], [address] Prothrombin Time w/INRon INR Coag (PPP) [Relative time] 2.5 {INR} Normal [facility] Comment on above: Order Comment: 411.2 Performed By: #### L 300.3900 ####[facility] [address] [place], [address] PT Coag (PPP) [Time] 27.5 s High 11.7-14.9 [facility] Comment on above: Order Comment: 411.2 Performed By: #### L 300.3900 ####[facility] [address] [place], [address] Prothrombin Time w/INRon INR Coag (PPP) [Relative time] 2.5 {INR} Normal [facility] Comment on above: Order Comment: 411-2 Performed By: #### L 300.3900 ####[facility] [address] [place], [address] PT Coag (PPP) [Time] 27.2 s High 11.7-14.9 [facility] Comment on above: Order Comment: 411-2 Performed By: #### L 300.3900 ####[facility] [address] [place], [address] INR Normal [facility] Comment on above: Order Comment: 411.2 Result Comment: MISS ING TUBE Performed By: #### L 300.3900 ####[facility] [address] [place], [address] PROTIME Normal 11.7-14.9 [facility] Comment on above: Order Comment: 411.2 Result Comment: MISS ING TUBE Performed By: #### L 300.3900 ####[facility] [address] [place], [address] International normalized rat io (INR) calculationOrdered By: Karon Corrales on 02-05-2025 INR Coag (Bld) [Relative time] 2.5 {INR} [facility] Prothrombin Time w/INRon INR Coag (PPP) [Relative time] 2.5 {INR} Normal [facility] Comment on above: Order Comment: 411.2 Performed By: #### L 300.3900 ####[facility] [address] [place], [address] PT Coag (PPP) [Time] 27.6 s High 11.7-14.9 [facility] Comment on above: Order Comment: 411.2 Performed By: #### L 300.3900 ####[facility] [address] [place], [place], [id number] Prothrombin timeOrdered By: Karon Corrales on 02-05-2025 PT Coag (PPP) [Time] 27.6 s High 11.7-14.9 [facility] International normalized rat io (INR) calculationOrdered By: Karon Corrales on 02-02-2025 INR Coag (Bld) [Relative time] 2.4 {INR} [facility] Prothrombin Time w/INRon INR Coag (PPP) [Relative time] 2.4 {INR} Normal [facility] Comment on above: Order Comment: 411.2 Performed By: #### L 300.3900 ####[facility] [address] [place], [place], [phone] PT Coag (PPP) [Time] 26.8 s High 11.7-14.9 [facility] Comment on above: Order Comment: 411.2 Performed By: #### L 300.3900 ####[facility] [address] [place], [place], [phone] Prothrombin timeOrdered By: Karon Corrales on 02-02-2025 PT Coag (PPP) [Time] 26.8 s High 11.7-14.9 [facility] International normalized rat io (INR) calculationOrdered By: Karon Corrales on 01-29-2025 INR Coag (Bld) [Relative time] 2.7 {INR} [facility] Prothrombin Time w/INRon INR Coag (PPP) [Relative time] 2.7 {INR} Normal [facility] Comment on above: Performed By: #### L 300.3900 ####[facility] [address] [place], [place], [phone] PT Coag (PPP) [Time] 29.1 s High 11.7-14.9 [facility] Comment on above: Performed By: #### L 300.3900 ####[facility] [address] [place], [place], [phone]) Prothrombin timeOrdered By: Karon Corrales on 01-29-2025 PT Coag (PPP) [Time] 29.1 s High 11.7-14.9 [facility] International normalized rat io (INR) calculationOrdered By: Karon Corrales on 01-26-2025 INR Coag (Bld) [Relative time] 2.0 {INR} [facility] Prothrombin Time w/INRon INR Coag (PPP) [Relative time] 2.0 {INR} Normal [facility] Comment on above: Order Comment: 411.2 Performed By: #### L 300.3900 ####[facility] [address] [place], [place], [phone]) PT Coag (PPP) [Time] 23.1 s High 11.7-14.9 [facility] Comment on above: Order Comment: 411.2 Performed By: #### L 300.3900 ####[facility] [address] [place], [place], [address](329) Prothrombin timeOrdered By: Karon Corrales on 01-26-2025 PT Coag (PPP) [Time] 23.1 s High 11.7-14.9 [facility] International normalized rat io (INR) calculationOrdered By: Karon Corrales on 01-22-2025 INR Coag (Bld) [Relative time] 2.4 {INR} [facility] Prothrombin Time w/INRon INR Coag (PPP) [Relative time] 2.4 {INR} Normal [facility] Comment on above: Order Comment: 411.2 Performed By: #### L 300.3900 ####[facility] [address] [place], [place], [phone] PT Coag (PPP) [Time] 26.6 s High 11.7-14.9 [facility] Comment on above: Order Comment: 411.2 Performed By: #### L 300.3900 ####[facility] [address] [place], [address] Prothrombin timeOrdered By: Karon Corrales on 01-22-2025 PT Coag (PPP) [Time] 26.6 s High 11.7-14.9 [facility] International normalized rat io (INR) calculationOrdered By: Carlos Cavazos on 01-19-2025 INR Coag (Bld) [Relative time] 2.7 {INR} [facility] Prothrombin Time w/INRon INR Coag (PPP) [Relative time] 2.7 {INR} Normal [facility] Comment on above: Order Comment: 411-2 Performed By: #### L 300.3900 ####[facility] [address] [place], [address] PT Coag (PPP) [Time] 29.7 s High 11.7-14.9 [facility] Comment on above: Order Comment: 411-2 Performed By: #### L 300.3900 ####[facility] [address] [place], [address] Prothrombin timeOrdered By: Carlos Cavazos on 01-19-2025 PT Coag (PPP) [Time] 29.7 s High 11.7-14.9 [facility] International normalized rat io (INR) calculationOrdered By: Karon Corrales on 01-15-2025 INR Coag (Bld) [Relative time] 2.4 {INR} [facility] Prothrombin Time w/INRon INR Coag (PPP) [Relative time] 2.4 {INR} Normal [facility] Comment on above: Order Comment: 411.1 Performed By: #### L 300.3900 ####[facility] [address] [place], [address] PT Coag (PPP) [Time] 26.6 s High 11.7-14.9 [facility] Comment on above: Order Comment: 411.1 Performed By: #### L 300.3900 ####[facility] [address] [place], [place], [phone] Prothrombin timeOrdered By: Karon Corrales on 01-15-2025 PT Coag (PPP) [Time] 26.6 s High 11.7-14.9 [facility] KEPPRA (LEVETIRACETAM)on KEPPRA 30.1 ug/mL Normal 10.0-40.0 [facility] Comment on above: Order Comment: 411.1 Result Comment: Perf ormed at: [facility] [address] [id number] Director: Alpesh Vázquez MD, Phone: [phone] Performed By: #### L 300.3900, L3310.0000 ####[facility] [address] [place], [place], [address] International normalized rat io (INR) calculationOrdered By: Karon Corrales on 01-12-2025 INR Coag (Bld) [Relative time] 2.3 {INR} [facility] LevetiracetamOrdered By: Carla Corrales on 01-12-2025 levETIRAcetam [Mass/Vol] 30.1 ug/mL 10.0-40.0 [facility] Comment on above: Performed at: [facility] [address] [id number] Director: Alpesh Vázquez MD, Phone: [phone] Prothrombin Time w/INRon INR Coag (PPP) [Relative time] 2.3 {INR} Normal [facility] Comment on above: Order Comment: 411.1 Performed By: #### L 300.3900, L3310.0000 ####[facility] [address] [place], [place], [id number] PT Coag (PPP) [Time] 26.1 s High 11.7-14.9 [facility] Comment on above: Order Comment: 411.1 Performed By: #### L 300.3900, L3310.0000 ####[facility] [address] [place], [address] Prothrombin timeOrdered By: Karon Corrales on 01-12-2025 PT Coag (PPP) [Time] 26.1 s High 11.7-14.9 [facility] KEPPRA (LEVETIRACETAM)on KEPPRA 27.6 ug/mL Normal 10.0-40.0 [facility] Comment on above: Order Comment: 411.1 Result Comment: Perf ormed at: [facility] [id number] Director: Alpesh Vázquez MD, Phone: [phone] Performed By: #### L 3310.0000, L300.3900 ####[facility] [address] [place], [place], [address] International normalized rat io (INR) calculationOrdered By: Karon Corrales on 01-08-2025 INR Coag (Bld) [Relative time] 2.2 {INR} [facility] Prothrombin Time w/INRon INR Coag (PPP) [Relative time] 2.2 {INR} Normal [facility] Comment on above: Order Comment: 411.1 Performed By: #### L 300.3900 ####[facility] [address] [place], [address] PT Coag (PPP) [Time] 24.5 s High 11.7-14.9 [facility] Comment on above: Order Comment: 411.1 Performed By: #### L 300.3900 ####[facility] [address] [place], [place], [address] Prothrombin timeOrdered By: Karon Corrales on 01-08-2025 PT Coag (PPP) [Time] 24.5 s High 11.7-14.9 [facility] International normalized rat io (INR) calculationOrdered By: Karon Corrales on 01-06-2025 INR Coag (Bld) [Relative time] 3.2 {INR} [facility] LevetiracetamOrdered By: Carla Corrales on 01-06-2025 levETIRAcetam [Mass/Vol] 27.6 ug/mL 10.0-40.0 [facility] Comment on above: Performed at: [address] [id number] Director: Alpesh Vázquez MD, Phone: [phone] Prothrombin Time w/INRon INR Coag (PPP) [Relative time] 3.2 {INR} Normal [facility] Comment on above: Order Comment: 411.1 Performed By: #### L 3310.0000, L300.3900 ####[facility] [address] [place], [place], [address] PT Coag (PPP) [Time] 33.1 s High 11.7-14.9 [facility] Comment on above: Order Comment: 411.1 Performed By: #### L 3310.0000, L300.3900 ####[facility] [address] [place], [place], [address] Prothrombin timeOrdered By: Karon Corrales on 01-06-2025 PT Coag (PPP) [Time] 33.1 s High 11.7-14.9 [facility] International normalized rat io (INR) calculationOrdered By: Karon Corrales on 01-01-2025 INR Coag (Bld) [Relative time] 2.7 {INR} [facility] Prothrombin Time w/INRon INR Coag (PPP) [Relative time] 2.7 {INR} Normal [facility] Comment on above: Order Comment: 411.1 Performed By: #### L 300.3900 ####[facility] [address] [place], [place], [address] Prothrombin timeOrdered By: Karon Corrales on 01-01-2025 PT Coag (PPP) [Time] 29.1 s High 11.7-14.9 [facility] Comment on above: Order Comment: 411.1 Performed By: #### L 300.3900 ####[facility] [address] [place], [place], [id number] KEPPRA (LEVETIRACETAM)on KEPPRA 31.8 ug/mL Normal 10.0-40.0 [facility] Comment on above: Order Comment: 411-1 Result Comment: Perf ormed at: [facility] [id number] Director: Alpesh Vázquez MD, Phone: [phone] Performed By: #### L 3310.0000, L300.3900 ####[facility] [address] [place], [address] International normalized rat io (INR) calculationOrdered By: Carlos Cavazos on 12-29-2024 INR Coag (Bld) [Relative time] 3.3 {INR} [facility] KEPPRA (LEVETIRACETAM)on KEPPRA 33.3 ug/mL Normal 10.0-40.0 [facility] Comment on above: Order Comment: 411.1 Result Comment: Perf ormed at: [facility] [id number] Director: Alpesh Vázquez MD, Phone: [phone] Performed By: #### L 3310.0000 ####[facility] [address] [place], [address] LevetiracetamOrdered By: Ted Cavazos on 12-29-2024 levETIRAcetam [Mass/Vol] 31.8 ug/mL 10.0-40.0 [facility] Comment on above: Performed at: [facility] [employer] [address] [id number] Director: Alpesh Vázquez MD, Phone: [phone] Prothrombin Time w/INRon INR Coag (PPP) [Relative time] 3.3 {INR} Normal [facility] Comment on above: Order Comment: 411-1 Performed By: #### L 3310.0000, L300.3900 ####[facility] [address] [place], [place], [address] Prothrombin timeOrdered By: Carlos Cavazos on 12-29-2024 PT Coag (PPP) [Time] 34.0 s High 11.7-14.9 [facility] Comment on above: Order Comment: 411-1 Performed By: #### L 3310.0000, L300.3900 ####[facility] [address] [place], [place], [address] LevetiracetamOrdered By: Carla Corrales on 12-26-2024 levETIRAcetam [Mass/Vol] 33.3 ug/mL 10.0-40.0 [facility] Comment on above: Performed at: [employer] [facility] [employer] [facility] [address] [id number] Director: Alpesh Vázquez MD, Phone: [phone] International normalized rat io (INR) calculationOrdered By: Karon Corrales on 12-25-2024 INR Coag (Bld) [Relative time] 2.8 {INR} [facility] Prothrombin Time w/INRon INR Coag (PPP) [Relative time] 2.8 {INR} Normal [facility] Comment on above: Order Comment: 411.1 Performed By: #### L 300.3900 ####[facility] [address] [place], [place], [address] Prothrombin timeOrdered By: Karon Corrales on 12-25-2024 PT Coag (PPP) [Time] 30.0 s High 11.7-14.9 [facility] Comment on above: Order Comment: 411.1 Performed By: #### L 300.3900 ####[facility] [address] [place], [address] Anion gap in Serum or Plasma Ordered By: Carlos Cavazos on 12-24-2024 Anion gap [Moles/Vol] 13 mmol/L 09-18 [facility] BUN/creatinine ratioOrdered By: Carlos Cavazos on 12-24-2024 Urea nitrogen/Creatinine [Mass ratio] 19.2 mg/mg 02-23 [facility] Basic Metabolic Profile (BMP )on 12-24-2024 BUN/CRE 19.2 RATIO Normal 02-23 [facility] Comment on above: Order Comment: 411-1 Performed By: #### L 500.2500, L100.0500 ####[facility] [address] [place], [address] Calcium [Mass/Vol] 8.8 mg/dL Normal 7.6-11.0 [facility] Comment on above: Order Comment: 411-1 Performed By: #### L 500.2500, L100.0500 ####[facility] [address] [place], [address] Chloride [Moles/Vol] 103 mmol/L Normal 98-108 [facility] Comment on above: Order Comment: 411-1 Performed By: #### L 500.2500, L100.0500 ####[facility] [address] [place], [address] CO2 [Moles/Vol] 23.7 mmol/L Normal 21.0-32.0 [facility] Comment on above: Order Comment: 411-1 Performed By: #### L 500.2500, L100.0500 ####[facility] [address] [place], [address] Creatinine [Mass/Vol] 0.82 mg/dL Normal 0.70-1.20 [facility] Comment on above: Order Comment: 411-1 Performed By: #### L 500.2500, L100.0500 ####[facility] [address] [place], [address] GAP 13 Normal 5-15 [facility] Comment on above: Order Comment: 411-1 Performed By: #### L 500.2500, L100.0500 ####[facility] [address] [place], [address] GFR/1.73 sq M.predicted among non-blacks MDRD (S/P/Bld) [Vol rate/Area] 93 mL/min/{1.73_m2} Normal >60 [facility] Comment on above: Order Comment: 411-1 Result Comment: mL/m in/1.73m2 CKD-EPI Creatinine Equation (2020) Performed By: #### L 500.2500, L100.0500 ####[facility] [address] [place], [address] Glucose [Mass/Vol] 88 mg/dL Normal 70-99 [facility] Comment on above: Order Comment: 411-1 Performed By: #### L 500.2500, L100.0500 ####[facility] [address] [place], [address] Potassium [Moles/Vol] 4.2 mmol/L Normal 3.3-5.1 [facility] Comment on above: Order Comment: 411-1 Performed By: #### L 500.2500, L100.0500 ####[facility] [address] [place], [address] Sodium [Moles/Vol] 139 mmol/L Normal 133-145 [facility] Comment on above: Order Comment: 411-1 Performed By: #### L 500.2500, L100.0500 ####[facility] [address] [place], [address] Urea nitrogen [Mass/Vol] 16 mg/dL Normal 4-19 [facility] Comment on above: Order Comment: 411-1 Performed By: #### L 500.2500, L100.0500 ####[facility] [address] [place], [address] CBC-Complete Blood Cnt No Di ffon 12-24-2024 Erythrocyte distribution width (RBC) [Ratio] 15.4 % High 11.6-14.6 [facility] Comment on above: Order Comment: 411-1 Performed By: #### L 500.2500, L100.0500 ####[facility] [address] [place], [address] Hematocrit (Bld) [Volume fraction] 39.8 % Low 40-54 [facility] Comment on above: Order Comment: 411-1 Performed By: #### L 500.2500, L100.0500 ####[facility] [address] [place], [address] Hemoglobin (Bld) [Mass/Vol] 12.4 g/dL Low 13.0-16.5 [facility] Comment on above: Order Comment: 411-1 Performed By: #### L 500.2500, L100.0500 ####[facility] [address] [place], [address] MCH (RBC) [Entitic mass] 26.6 pg Low 27.0-32.0 [facility] Comment on above: Order Comment: 411-1 Performed By: #### L 500.2500, L100.0500 ####[facility] [address] [place], [address] MCHC (RBC) [Mass/Vol] 31.2 g/dL Low 32-36 [facility] Comment on above: Order Comment: 411-1 Performed By: #### L 500.2500, L100.0500 ####[facility] [address] [place], [address] MCV (RBC) [Entitic vol] 85.4 fL Normal 80-94 [facility] Comment on above: Order Comment: 411-1 Performed By: #### L 500.2500, L100.0500 ####[facility] [address] [place], [address] Platelet mean volume (Bld) [Entitic vol] 10.4 fL Normal 6.2-12.0 [facility] Comment on above: Order Comment: 411-1 Performed By: #### L 500.2500, L100.0500 ####[facility] [address] [place], [address] Platelets (Bld) [#/Vol] 290 10*3/uL Normal 150-450 [facility] Comment on above: Order Comment: 411-1 Performed By: #### L 500.2500, L100.0500 ####[facility] [address] [place], [address] RBC (Bld) [#/Vol] 4.66 10*6/uL Normal 4.6-6.[address] [facility] Comment on above: Order Comment: 411-1 Performed By: #### L 500.2500, L100.0500 ####[facility] [address] [place], [address] RDW SD 48.1 fl High 35.1-43.9 [facility] Comment on above: Order Comment: 411-1 Performed By: #### L 500.2500, L100.0500 ####[facility] [address] [place], [address] WBC (Bld) [#/Vol] 16.6 10*3/uL High 4.4-11.[address] [facility] Comment on above: Order Comment: 411-1 Performed By: #### L 500.2500, L100.0500 ####[facility] [address] [place], [address] Carbon dioxide, total [Moles /volume] in Central venous bloodOrdered By: Carlos Cavazos on 12-24-2024 CO2 [Moles/Vol] 23.7 mmol/L 21.0-32.0 [facility] Chloride assayOrdered By: Sharif Crouch on 12-24-2024 Chloride [Moles/Vol] 103 mmol/L 98-108 [facility] Erythrocyte distribution wid th ratioOrdered By: Carlos Cavazos on 12-24-2024 Erythrocyte distribution width (RBC) [Ratio] 15.4 % High 11.6-14.6 [facility] Erythrocyte distribution wid th standard deviationOrdered By: Carlos Cavazos on 12-24-2024 Erythrocyte distribution width (RBC) [Ratio] 48.1 fl High 35.1-43.9 [facility] Glomerular filtration rate ( GFR) estimation/1.73 sq m using serum, plasma, or whole bOrdered By: Carlos Cavazos on 12-24-2024 GFR/1.73 sq M.predicted among non-blacks MDRD (S/P/Bld) [Vol rate/Area] 93 mL/min/{1.73_m2} >60 [facility] Comment on above: mL/min/1.73m2 CKD-EP I Creatinine Equation (2020) Hematocrit Auto (Bld) [Volum e fraction]Ordered By: Carlos Cavazos on 12-24-2024 Hematocrit (Bld) [Volume fraction] 39.8 % Low 40-54 [facility] Hemoglobin measurementOrdere d By: Carlos Cavazos on 12-24-2024 Hemoglobin (Bld) [Mass/Vol] 12.4 g/dL Low 13.0-16.5 [facility] MCV (mean corpuscular volume ) determinationOrdered By: Carlos Cavazos on 12-24-2024 MCV (RBC) [Entitic vol] 85.4 fL 80-94 [facility] Mean corpuscular hemoglobin (MCH) determinationOrdered By: Carlos Cavazos on 12-24-2024 MCH (RBC) [Entitic mass] 26.6 pg Low 27.0-32.0 [facility] Mean corpuscular hemoglobin concentration (MCHC) determinationOrdered By: Carlos Cavazos on 12-24-2024 MCHC (RBC) [Mass/Vol] 31.2 g/dL Low 32-36 [facility] Mean platelet volume determi nationOrdered By: Carlos Cavazos on 12-24-2024 Platelet mean volume (Bld) [Entitic vol] 10.4 fL 6.2-12.0 [facility] Platelet countOrdered By: Sharif Crouch on 12-24-2024 Platelets (Bld) [#/Vol] 290 10*3/uL 150-450 [facility] Potassium measurement (mass/ volume)Ordered By: Carlos Cavazos on 12-24-2024 Potassium (Unsp spec) [Mass/Vol] 4.2 mmol/L 3.3-5.1 [facility] RBC Auto (Bld) [#/Vol]Ordere d By: Carlos Cavazos on 12-24-2024 RBC (Bld) [#/Vol] 4.66 10*6/uL 4.6-6.[address] [facility] Serum creatinine measurement (mass/volume)Ordered By: Carlos Cavazos on 12-24-2024 Creatinine [Mass/Vol] 0.82 mg/dL 0.70-1.20 [facility] Serum glucose measurement (m ass/volume)Ordered By: Carlos Cavazos on 12-24-2024 Glucose [Mass/Vol] 88 mg/dL 70-99 [facility] Serum or plasma calcium oral urement (mass/volume)Ordered By: Carlos Cavazos on 12-24-2024 Calcium [Mass/Vol] 8.8 mg/dL 7.6-11.0 [facility] Serum or plasma urea nitroge n measurement (mass/volume)Ordered By: Carlos Cavazos on 12-24-2024 Urea nitrogen [Mass/Vol] 16 mg/dL 4-19 [facility] Sodium levelOrdered By: Moe Cavazos on 12-24-2024 Sodium [Moles/Vol] 139 mmol/L 133-145 [facility] White blood cell (WBC) count Ordered By: Carlos Cavazos on 12-24-2024 WBC (Bld) [#/Vol] 16.6 10*3/uL High 4.4-11.[address] [facility] International normalized rat io (INR) calculationOrdered By: Karon Corrales on 12-22-2024 INR Coag (Bld) [Relative time] 2.6 {INR} [facility] Prothrombin Time w/INRon INR Coag (PPP) [Relative time] 2.6 {INR} Normal [facility] Comment on above: Order Comment: 411.1 Performed By: #### L 300.3900 ####[facility] [address] [place], [address] PT Coag (PPP) [Time] 28.8 s High 11.7-14.9 [facility] Comment on above: Order Comment: 411.1 Performed By: #### L 300.3900 ####[facility] [address] [place], [place], [phone]([phone] Prothrombin timeOrdered By: Karon Corrales on 12-22-2024 PT Coag (PPP) [Time] 28.8 s High 11.7-14.9 [facility] International normalized rat io (INR) calculationOrdered By: Karon Corrales on 12-18-2024 INR Coag (Bld) [Relative time] 2.4 {INR} [facility] Prothrombin Time w/INRon INR Coag (PPP) [Relative time] 2.4 {INR} Normal [facility] Comment on above: Order Comment: 411.1 Performed By: #### L 300.3900 ####[facility] [address] [place], [place], [phone] PT Coag (PPP) [Time] 26.7 s High 11.7-14.9 [facility] Comment on above: Order Comment: 411.1 Performed By: #### L 300.3900 ####[facility] [address] [place], [address] Prothrombin timeOrdered By: Karon Corrales on 12-18-2024 PT Coag (PPP) [Time] 26.7 s High 11.7-14.9 [facility] International normalized rat io (INR) calculationOrdered By: Karon Corrales on 12-15-2024 INR Coag (Bld) [Relative time] 2.3 {INR} [facility] Prothrombin Time w/INRon INR Coag (PPP) [Relative time] 2.3 {INR} Normal [facility] Comment on above: Order Comment: 411.1 Performed By: #### L 300.3900 ####[facility] [address] [place], [address] Prothrombin timeOrdered By: Karon Corrales on 12-15-2024 PT Coag (PPP) [Time] 25.7 s High 11.7-14.9 [facility] Comment on above: Order Comment: 411.1 Performed By: #### L 300.3900 ####[facility] [address] [place], [place], [phone] International normalized rat io (INR) calculationOrdered By: Carlos Cavazos on 12-11-2024 INR Coag (Bld) [Relative time] 2.2 {INR} [facility] Prothrombin Time w/INRon INR Coag (PPP) [Relative time] 2.2 {INR} Normal [facility] Comment on above: Order Comment: 411-1 Performed By: #### L 300.3900 ####[facility] [address] [place], [place], [phone] Prothrombin timeOrdered By: Carlos Cavazos on 12-11-2024 PT Coag (PPP) [Time] 24.7 s High 11.7-14.9 [facility] Comment on above: Order Comment: 411-1 Performed By: #### L 300.3900 ####[facility] [address] [place], [address] International normalized rat io (INR) calculationOrdered By: Karon Corrales on 12-08-2024 INR Coag (Bld) [Relative time] 2.2 {INR} [facility] Prothrombin Time w/INRon INR Coag (PPP) [Relative time] 2.2 {INR} Normal [facility] Comment on above: Order Comment: 411.1 Performed By: #### L 300.3900 ####[facility] [address] [place], [address] PT Coag (PPP) [Time] 25.0 s High 11.7-14.9 [facility] Comment on above: Order Comment: 411.1 Performed By: #### L 300.3900 ####[facility] [address] [place], [address] Prothrombin timeOrdered By: Karon Corrales on 12-08-2024 PT Coag (PPP) [Time] 25.0 s High 11.7-14.9 [facility] International normalized rat io (INR) calculationOrdered By: Karon Corrales on 12-04-2024 INR Coag (Bld) [Relative time] 2.3 {INR} [facility] Prothrombin Time w/INRon INR Coag (PPP) [Relative time] 2.3 {INR} Normal [facility] Comment on above: Order Comment: 411.1 Performed By: #### L 300.3900 ####[facility] [address] [place], [address] PT Coag (PPP) [Time] 25.9 s High 11.7-14.9 [facility] Comment on above: Order Comment: 411.1 Performed By: #### L 300.3900 ####[facility] [address] [place], [address] Prothrombin timeOrdered By: Karon Corrales on 12-04-2024 PT Coag (PPP) [Time] 25.9 s High 11.7-14.9 [facility] International normalized rat io (INR) calculationOrdered By: Karon Corrales on 12-02-2024 INR Coag (Bld) [Relative time] 2.5 {INR} [facility] Prothrombin Time w/INRon INR Coag (PPP) [Relative time] 2.5 {INR} Normal [facility] Comment on above: Order Comment: 411.1 Performed By: #### L 300.3900 ####[facility] [address] [place], [place], [phone](890) PT Coag (PPP) [Time] 27.3 s High 11.7-14.9 [facility] Comment on above: Order Comment: 411.1 Performed By: #### L 300.3900 ####[facility] [address] [place], [place], [phone](102) Prothrombin timeOrdered By: Karon Corrales on 12-02-2024 PT Coag (PPP) [Time] 27.3 s High 11.7-14.9 [facility] International normalized rat io (INR) calculationOrdered By: Carlos Cavazos on 12-01-2024 INR Coag (Bld) [Relative time] 2.3 {INR} [facility] Prothrombin Time w/INRon INR Coag (PPP) [Relative time] 2.3 {INR} Normal [facility] Comment on above: Order Comment: 411-1 Performed By: #### L 300.3900 ####[facility] [address] [place], [place], [phone] PT Coag (PPP) [Time] 26.0 s High 11.7-14.9 [facility] Comment on above: Order Comment: 411-1 Performed By: #### L 300.3900 ####[facility] [address] [place], [place], [phone](981) Prothrombin timeOrdered By: Carlos Cavazos on 12-01-2024 PT Coag (PPP) [Time] 26.0 s High 11.7-14.9 [facility] International normalized rat io (INR) calculationOrdered By: Carlos Cavazos on 11-28-2024 INR Coag (Bld) [Relative time] 3.1 {INR} [facility] Prothrombin Time w/INRon INR Coag (PPP) [Relative time] 3.1 {INR} Normal [facility] Comment on above: Order Comment: 411-1 Performed By: #### L 300.3900 ####[facility] [address] [place], [place], [phone](655) PT Coag (PPP) [Time] 32.8 s High 11.7-14.9 [facility] Comment on above: Order Comment: 411-1 Performed By: #### L 300.3900 ####[facility] [address] [place], [place], [phone](021) Prothrombin timeOrdered By: Carlos Cavazos on 11-28-2024 PT Coag (PPP) [Time] 32.8 s High 11.7-14.9 [facility] International normalized rat io (INR) calculationOrdered By: Karon Corrales on 11-27-2024 INR Coag (Bld) [Relative time] 3.3 {INR} [facility] Prothrombin Time w/INRon INR Coag (PPP) [Relative time] 3.3 {INR} Normal [facility] Comment on above: Order Comment: 411.1 Performed By: #### L 300.3900 ####[facility] [address] [place], [place], [phone](698) PT Coag (PPP) [Time] 34.3 s High 11.7-14.9 [facility] Comment on above: Order Comment: 411.1 Performed By: #### L 300.3900 ####[facility] [address] [place], [place], [phone](469) Prothrombin timeOrdered By: Karon Corrales on 11-27-2024 PT Coag (PPP) [Time] 34.3 s High 11.7-14.9 [facility] International normalized rat io (INR) calculationOrdered By: Karon Corrales on 11-24-2024 INR Coag (Bld) [Relative time] 2.8 {INR} [facility] Prothrombin Time w/INRon INR Coag (PPP) [Relative time] 2.8 {INR} Normal [facility] Comment on above: Order Comment: 411.2 Performed By: #### L 300.3900 ####[facility] [address] [place], [place], [phone](212) PT Coag (PPP) [Time] 30.0 s High 11.7-14.9 [facility] Comment on above: Order Comment: 411.2 Performed By: #### L 300.3900 ####[facility] [address] [place], [place], [phone](829) Prothrombin timeOrdered By: Karon Corrales on 11-24-2024 PT Coag (PPP) [Time] 30.0 s High 11.7-14.9 [facility] International normalized rat io (INR) calculationOrdered By: Karon Corrales on 11-20-2024 INR Coag (Bld) [Relative time] 3.0 {INR} [facility] Prothrombin Time w/INRon INR Coag (PPP) [Relative time] 3.0 {INR} Normal [facility] Comment on above: Order Comment: 411.2 Performed By: #### L 300.3900 ####[facility] [address] [place], [place], [phone](540) PT Coag (PPP) [Time] 32.0 s High 11.7-14.9 [facility] Comment on above: Order Comment: 411.2 Performed By: #### L 300.3900 ####[facility] [address] [place], [address] Prothrombin timeOrdered By: Karon Corrales on 11-20-2024 PT Coag (PPP) [Time] 32.0 s High 11.7-14.9 [facility] International normalized rat io (INR) calculationOrdered By: Karon Corrales on 11-17-2024 INR Coag (Bld) [Relative time] 2.9 {INR} [facility] Prothrombin Time w/INRon INR Coag (PPP) [Relative time] 2.9 {INR} Normal [facility] Comment on above: Order Comment: 411.2 Performed By: #### L 300.3900 ####[facility] [address] [place], [place], [phone] PT Coag (PPP) [Time] 30.7 s High 11.7-14.9 [facility] Comment on above: Order Comment: 411.2 Performed By: #### L 300.3900 ####[facility] [address] [place], [place], [phone] Prothrombin timeOrdered By: Karon Corrales on 11-17-2024 PT Coag (PPP) [Time] 30.7 s High 11.7-14.9 [facility] International normalized rat io (INR) calculationOrdered By: Karon Corrales on 11-13-2024 INR Coag (Bld) [Relative time] 2.2 {INR} [facility] Prothrombin Time w/INRon INR Coag (PPP) [Relative time] 2.2 {INR} Normal [facility] Comment on above: Order Comment: 411.2 Performed By: #### L 300.3900 ####[facility] [address] [place], [address] PT Coag (PPP) [Time] 24.7 s High 11.7-14.9 [facility] Comment on above: Order Comment: 411.2 Performed By: #### L 300.3900 ####[facility] [address] [place], [place], [phone] Prothrombin timeOrdered By: Karon Corrales on 11-13-2024 PT Coag (PPP) [Time] 24.7 s High 11.7-14.9 [facility] International normalized rat io (INR) calculationOrdered By: Karon Corrales on 11-10-2024 INR Coag (Bld) [Relative time] 2.6 {INR} [facility] Prothrombin Time w/INRon INR Coag (PPP) [Relative time] 2.6 {INR} Normal [facility] Comment on above: Order Comment: 411.2 Performed By: #### L 300.3900 ####[facility] [address] [place], [place], [address] PT Coag (PPP) [Time] 28.7 s High 11.7-14.9 [facility] Comment on above: Order Comment: 411.2 Performed By: #### L 300.3900 ####[facility] [address] [place], [place], [phone] Prothrombin timeOrdered By: Karon Corrales on 11-10-2024 PT Coag (PPP) [Time] 28.7 s High 11.7-14.9 [facility] International normalized rat io (INR) calculationOrdered By: Karon Corrales on 11-06-2024 INR Coag (Bld) [Relative time] 3.1 {INR} [facility] Prothrombin Time w/INRon INR Coag (PPP) [Relative time] 3.1 {INR} Normal [facility] Comment on above: Order Comment: 411.2 Performed By: #### L 300.3900 ####[facility] [address] [place], [place], [phone] Prothrombin timeOrdered By: Karon Corrales on 11-06-2024 PT Coag (PPP) [Time] 33.0 s High 11.7-14.9 [facility] Comment on above: Order Comment: 411.2 Performed By: #### L 300.3900 ####[facility] [address] [place], [place], [phone](235) International normalized rat io (INR) calculationOrdered By: Carlos Cavazos on 11-03-2024 INR Coag (Bld) [Relative time] 3.0 {INR} [facility] Prothrombin Time w/INRon INR Coag (PPP) [Relative time] 3.0 {INR} Normal [facility] Comment on above: Order Comment: 411-2 Performed By: #### L 300.3900 ####[facility] [address] [place], [address] PT Coag (PPP) [Time] 31.4 s High 11.7-14.9 [facility] Comment on above: Order Comment: 411-2 Performed By: #### L 300.3900 ####[facility] [address] [place], [address] Prothrombin timeOrdered By: Carlos Cavazos on 11-03-2024 PT Coag (PPP) [Time] 31.4 s High 11.7-14.9 [facility] International normalized rat io (INR) calculationOrdered By: Karon Corrales on 10-30-2024 INR Coag (Bld) [Relative time] 2.4 {INR} [facility] Prothrombin Time w/INRon INR Coag (PPP) [Relative time] 2.4 {INR} Normal [facility] Comment on above: Performed By: #### L 300.3900 ####[facility] [address] [place], [address] PT Coag (PPP) [Time] 26.3 s High 11.7-14.9 [facility] Comment on above: Performed By: #### L 300.3900 ####[facility] [address] [place], [place], [phone] Prothrombin timeOrdered By: Karon Corrales on 10-30-2024 PT Coag (PPP) [Time] 26.3 s High 11.7-14.9 [facility] International normalized rat io (INR) calculationOrdered By: Karon Corrales on 10-27-2024 INR Coag (Bld) [Relative time] 2.2 {INR} [facility] Prothrombin Time w/INRon INR Coag (PPP) [Relative time] 2.2 {INR} Normal [facility] Comment on above: Order Comment: 411.2 Performed By: #### L 300.3900 ####[facility] [address] [place], [place], [phone] Prothrombin timeOrdered By: Karon Corrales on 10-27-2024 PT Coag (PPP) [Time] 24.5 s High 11.7-14.9 [facility] Comment on above: Order Comment: 411.2 Performed By: #### L 300.3900 ####[facility] [address] [place], [place], [phone] International normalized rat io (INR) calculationOrdered By: Karon Corrales on 10-23-2024 INR Coag (Bld) [Relative time] 2.5 {INR} [facility] Prothrombin Time w/INRon INR Coag (PPP) [Relative time] 2.5 {INR} Normal [facility] Comment on above: Order Comment: 411.2 Performed By: #### L 300.3900 ####[facility] [address] [place], [place], [phone] PT Coag (PPP) [Time] 27.9 s High 11.7-14.9 [facility] Comment on above: Order Comment: 411.2 Performed By: #### L 300.3900 ####[facility] [address] [place], [place], [phone] Prothrombin timeOrdered By: Karon Corrales on 10-23-2024 PT Coag (PPP) [Time] 27.9 s High 11.7-14.9 [facility] International normalized rat io (INR) calculationOrdered By: Karon Corrales on 10-20-2024 INR Coag (Bld) [Relative time] 3.1 {INR} [facility] Prothrombin Time w/INRon INR Coag (PPP) [Relative time] 3.1 {INR} Normal [facility] Comment on above: Order Comment: 411.2 Performed By: #### L 300.3900 ####[facility] [address] [place], [place], [phone] PT Coag (PPP) [Time] 32.8 s High 11.7-14.9 [facility] Comment on above: Order Comment: 411.2 Performed By: #### L 300.3900 ####[facility] [address] [place], [place], [address] Prothrombin timeOrdered By: Karon Corrales on 10-20-2024 PT Coag (PPP) [Time] 32.8 s High 11.7-14.9 [facility] International normalized rat io (INR) calculationOrdered By: Karon Corrales on 10-16-2024 INR Coag (Bld) [Relative time] 2.8 {INR} [facility] Prothrombin Time w/INRon INR Coag (PPP) [Relative time] 2.8 {INR} Normal [facility] Comment on above: Order Comment: 411.2 Performed By: #### L 300.3900 ####[facility] [address] [place], [address] PT Coag (PPP) [Time] 30.4 s High 11.7-14.9 [facility] Comment on above: Order Comment: 411.2 Performed By: #### L 300.3900 ####[facility] [address] [place], [place], [phone] Prothrombin timeOrdered By: Karon Corrales on 10-16-2024 PT Coag (PPP) [Time] 30.4 s High 11.7-14.9 [facility] International normalized rat io (INR) calculationOrdered By: Carlos Cavazos on 10-13-2024 INR Coag (Bld) [Relative time] 1.9 {INR} [facility] Prothrombin Time w/INRon INR Coag (PPP) [Relative time] 1.9 {INR} Normal [facility] Comment on above: Order Comment: 411-2 Performed By: #### L 300.3900 ####[facility] [address] [place], [place], [phone] PT Coag (PPP) [Time] 22.4 s High 11.7-14.9 [facility] Comment on above: Order Comment: 411-2 Performed By: #### L 300.3900 ####[facility] [address] [place], [place], [phone] Prothrombin timeOrdered By: Carlos Cavazos on 10-13-2024 PT Coag (PPP) [Time] 22.4 s High 11.7-14.9 [facility] International normalized rat io (INR) calculationOrdered By: Karon Corrales on 10-09-2024 INR Coag (Bld) [Relative time] 3.0 {INR} [facility] Prothrombin Time w/INRon INR Coag (PPP) [Relative time] 3.0 {INR} Normal [facility] Comment on above: Order Comment: 411.2 Performed By: #### L 300.3900 ####[facility] [address] [place], [place], [phone] Prothrombin timeOrdered By: Karon Corrales on 10-09-2024 PT Coag (PPP) [Time] 31.8 s High 11.7-14.9 [facility] Comment on above: Order Comment: 411.2 Performed By: #### L 300.3900 ####[facility] [address] [place], [place], [phone] International normalized rat io (INR) calculationOrdered By: Carlos Cavazos on 10-06-2024 INR Coag (Bld) [Relative time] 2.7 {INR} [facility] Prothrombin Time w/INRon INR Coag (PPP) [Relative time] 2.7 {INR} Normal [facility] Comment on above: Order Comment: 411-2 Performed By: #### L 300.3900 ####[facility] [address] [place], [place], [phone] PT Coag (PPP) [Time] 29.6 s High 11.7-14.9 [facility] Comment on above: Order Comment: 411-2 Performed By: #### L 300.3900 ####[facility] [address], [address] Prothrombin timeOrdered By: Carlos Cavazos on 10-06-2024 PT Coag (PPP) [Time] 29.6 s High 11.7-14.9 [facility] International normalized rat io (INR) calculationOrdered By: Karon Corrales on 10-02-2024 INR Coag (Bld) [Relative time] 2.3 {INR} [facility] Prothrombin Time w/INRon INR Coag (PPP) [Relative time] 2.3 {INR} Normal [facility] Comment on above: Order Comment: 411.2 Performed By: #### L 300.3900 ####[facility] [address] [place], [place], [phone] PT Coag (PPP) [Time] 26.0 s High 11.7-14.9 [facility] Comment on above: Order Comment: 411.2 Performed By: #### L 300.3900 ####[facility] [address] [place], [place], [phone] Prothrombin timeOrdered By: Karon Corrales on 10-02-2024 PT Coag (PPP) [Time] 26.0 s High 11.7-14.9 [facility] International normalized rat io (INR) calculationOrdered By: Karon Corrales on 09-30-2024 INR Coag (Bld) [Relative time] 3.1 {INR} [facility] Prothrombin Time w/INRon INR Coag (PPP) [Relative time] 3.1 {INR} Normal [facility] Comment on above: Order Comment: 411.2 Performed By: #### L 300.3900 ####[facility] [address] [place], [place], [address] PT Coag (PPP) [Time] 32.6 s High 11.7-14.9 [facility] Comment on above: Order Comment: 411.2 Performed By: #### L 300.3900 ####[facility] [address] [place], [place], [address] Prothrombin timeOrdered By: Karon Corrales on 09-30-2024 PT Coag (PPP) [Time] 32.6 s High 11.7-14.9 [facility] International normalized rat io (INR) calculationOrdered By: Karon Corrales on 09-25-2024 INR Coag (Bld) [Relative time] 2.4 {INR} [facility] Prothrombin Time w/INRon INR Coag (PPP) [Relative time] 2.4 {INR} Normal [facility] Comment on above: Order Comment: 411.2 Performed By: #### L 300.3900 ####[facility] [address] [place], [place], [phone] Prothrombin timeOrdered By: Karon Corrales on 09-25-2024 PT Coag (PPP) [Time] 26.7 s High 11.7-14.9 [facility] Comment on above: Order Comment: 411.2 Performed By: #### L 300.3900 ####[facility] [address] [place], [address] International normalized rat io (INR) calculationOrdered By: Karon Corrales on 09-22-2024 INR Coag (Bld) [Relative time] 2.5 {INR} [facility] Prothrombin Time w/INRon INR Coag (PPP) [Relative time] 2.5 {INR} Normal [facility] Comment on above: Order Comment: 411.2 Performed By: #### L 300.3900 ####[facility] [address] [place], [address] Prothrombin timeOrdered By: Karon Corrales on 09-22-2024 PT Coag (PPP) [Time] 27.4 s High 11.7-14.9 [facility] Comment on above: Order Comment: 411.2 Performed By: #### L 300.3900 ####[facility] [address] [place], [place], [phone] International normalized rat io (INR) calculationOrdered By: Karon Corrales on 09-18-2024 INR Coag (Bld) [Relative time] 2.2 {INR} [facility] Prothrombin Time w/INRon INR Coag (PPP) [Relative time] 2.2 {INR} Normal [facility] Comment on above: Order Comment: 411.2 Performed By: #### L 300.3900 ####[facility] [address] [place], [place], [phone] PT Coag (PPP) [Time] 25.1 s High 11.7-14.9 [facility] Comment on above: Order Comment: 411.2 Performed By: #### L 300.3900 ####[facility] [address] [place], [place], [phone] Prothrombin timeOrdered By: Karon Corrales on 09-18-2024 PT Coag (PPP) [Time] 25.1 s High 11.7-14.9 [facility] International normalized rat io (INR) calculationOrdered By: Carlos Cavazos on 09-15-2024 INR Coag (Bld) [Relative time] 2.4 {INR} [facility] Prothrombin Time w/INRon INR Coag (PPP) [Relative time] 2.4 {INR} Normal [facility] Comment on above: Order Comment: 411-2 Performed By: #### L 300.3900 ####[facility] [address] [place], [address] Prothrombin timeOrdered By: Carlos Cavazos on 09-15-2024 PT Coag (PPP) [Time] 26.3 s High 11.7-14.9 [facility] Comment on above: Order Comment: 411-2 Performed By: #### L 300.3900 ####[facility] [address] [place], [place], [address] International normalized rat io (INR) calculationOrdered By: Karon Corrales on 09-11-2024 INR Coag (Bld) [Relative time] 2.0 {INR} [facility] Prothrombin Time w/INRon INR Coag (PPP) [Relative time] 2.0 {INR} Normal [facility] Comment on above: Order Comment: 411.2 Performed By: #### L 300.3900 ####[facility] [address] [place], [place], [phone] PT Coag (PPP) [Time] 22.9 s High 11.7-14.9 [facility] Comment on above: Order Comment: 411.2 Performed By: #### L 300.3900 ####[facility] [address] [place], [address] Prothrombin timeOrdered By: Karon Corrales on 09-11-2024 PT Coag (PPP) [Time] 22.9 s High 11.7-14.9 [facility] International normalized rat io (INR) calculationOrdered By: Karon Corrales on 09-08-2024 INR Coag (Bld) [Relative time] 2.0 {INR} [facility] Prothrombin Time w/INRon INR Coag (PPP) [Relative time] 2.0 {INR} Normal [facility] Comment on above: Order Comment: 411.2 Performed By: #### L 300.3900 ####[facility] [address] [place], [address] PT Coag (PPP) [Time] 22.8 s High 11.7-14.9 [facility] Comment on above: Order Comment: 411.2 Performed By: #### L 300.3900 ####[facility] [address] [place], [address] Prothrombin timeOrdered By: Karon Corrales on 09-08-2024 PT Coag (PPP) [Time] 22.8 s High 11.7-14.9 [facility] International normalized rat io (INR) calculationOrdered By: Carlos Cavazos on 09-04-2024 INR Coag (Bld) [Relative time] 1.7 {INR} [facility] Prothrombin Time w/INRon INR Coag (PPP) [Relative time] 1.7 {INR} Normal [facility] Comment on above: Order Comment: 411-2 Performed By: #### L 300.3900 ####[facility] [address] [place], [address] PT Coag (PPP) [Time] 20.8 s High 11.7-14.9 [facility] Comment on above: Order Comment: 411-2 Performed By: #### L 300.3900 ####[facility] [address] [place], [address] Prothrombin timeOrdered By: Carlos Cavazos on 09-04-2024 PT Coag (PPP) [Time] 20.8 s High 11.7-14.9 [facility] International normalized rat io (INR) calculationOrdered By: Carlos Cavazos on 09-01-2024 INR Coag (Bld) [Relative time] 2.9 {INR} [facility] Prothrombin Time w/INRon INR Coag (PPP) [Relative time] 2.9 {INR} Normal [facility] Comment on above: Order Comment: 411-2 Performed By: #### L 300.3900 ####[facility] [address] [place], [address] PT Coag (PPP) [Time] 30.7 s High 11.7-14.9 [facility] Comment on above: Order Comment: 411-2 Performed By: #### L 300.3900 ####[facility] [address], [address] Prothrombin timeOrdered By: Carlos Cavazos on 09-01-2024 PT Coag (PPP) [Time] 30.7 s High 11.7-14.9 [facility] International normalized rat io (INR) calculationOrdered By: Carlos Cavazos on 08-28-2024 INR Coag (Bld) [Relative time] 2.4 {INR} [facility] Prothrombin Time w/INRon INR Coag (PPP) [Relative time] 2.4 {INR} Normal [facility] Comment on above: Order Comment: 411-2 Performed By: #### L 300.3900 ####[facility] [address] [place], [address] Prothrombin timeOrdered By: Carlos Cavazos on 08-28-2024 PT Coag (PPP) [Time] 26.7 s High 11.7-14.9 [facility] Comment on above: Order Comment: 411-2 Performed By: #### L 300.3900 ####[facility] [address] [place], [place], [phone] International normalized rat io (INR) calculationOrdered By: Karon Corrales on 08-25-2024 INR Coag (Bld) [Relative time] 1.8 {INR} [facility] Prothrombin Time w/INRon INR Coag (PPP) [Relative time] 1.8 {INR} Normal [facility] Comment on above: Order Comment: 411.2 Performed By: #### L 300.3900 ####[facility] [address] [place], [place], [phone] PT Coag (PPP) [Time] 21.6 s High 11.7-14.9 [facility] Comment on above: Order Comment: 411.2 Performed By: #### L 300.3900 ####[facility] [address] [place], [place], [address] Prothrombin timeOrdered By: Karon Corrales on 08-25-2024 PT Coag (PPP) [Time] 21.6 s High 11.7-14.9 [facility] International normalized rat io (INR) calculationOrdered [...] #### L 501.9910, L300.3900 ####[facility] [address] [place], [address] Prothrombin Time w/INRon INR Coag (PPP) [Relative time] 1.7 {INR} Normal [facility] Comment on above: Order Comment: 411.2 Performed By: #### L 501.9910, L300.3900 ####[facility] [address] [place], [address] Prothrombin timeOrdered By: Karon Corrales on 08-21-2024 PT Coag (PPP) [Time] 20.1 s High 11.7-14.9 [facility] Comment on above: Order Comment: 411.2 Performed By: #### L 501.9910, L300.3900 ####[facility] [address] [place], [address] International normalized rat io (INR) calculationOrdered By: Karon Corrales on 08-18-2024 INR Coag (Bld) [Relative time] 3.0 {INR} [facility] Prothrombin Time w/INRon INR Coag (PPP) [Relative time] 3.0 {INR} Normal [facility] Comment on above: Order Comment: 411.2 Performed By: #### L 300.3900 ####[facility] [address] [place], [address] PT Coag (PPP) [Time] 31.4 s High 11.7-14.9 [facility] Comment on above: Order Comment: 411.2 Performed By: #### L 300.3900 ####[facility] [address] [place], [place], [phone] Prothrombin timeOrdered By: Karon Corrales on 08-18-2024 PT Coag (PPP) [Time] 31.4 s High 11.7-14.9 [facility] International normalized rat io (INR) calculationOrdered By: Karon Corrales on 08-14-2024 INR Coag (Bld) [Relative time] 2.4 {INR} [facility] Prothrombin Time w/INRon INR Coag (PPP) [Relative time] 2.4 {INR} Normal [facility] Comment on above: Order Comment: 411.2 Performed By: #### L 300.3900 ####[facility] [address] [place], [place], [phone] PT Coag (PPP) [Time] 26.6 s High 11.7-14.9 [facility] Comment on above: Order Comment: 411.2 Performed By: #### L 300.3900 ####[facility] [address] [place], [place], [address] Prothrombin timeOrdered By: Karon Corrales on 08-14-2024 PT Coag (PPP) [Time] 26.6 s High 11.7-14.9 [facility] International normalized rat io (INR) calculationOrdered By: Karon Corrales on 08-11-2024 INR Coag (Bld) [Relative time] 3.1 {INR} [facility] Prothrombin Time w/INRon INR Coag (PPP) [Relative time] 3.1 {INR} Normal [facility] Comment on above: Order Comment: 411.2 Performed By: #### L 300.3900 ####[facility] [address] [place], [address]) PT Coag (PPP) [Time] 32.4 s High 11.7-14.9 [facility] Comment on above: Order Comment: 411.2 Performed By: #### L 300.3900 ####[facility] [address] [place], [place], [phone] Prothrombin timeOrdered By: Karon Corrales on 08-11-2024 PT Coag (PPP) [Time] 32.4 s High 11.7-14.9 [facility] International normalized rat io (INR) calculationOrdered By: Carlos Cavazos on 08-07-2024 INR Coag (Bld) [Relative time] 2.8 {INR} [facility] Prothrombin Time w/INRon INR Coag (PPP) [Relative time] 2.8 {INR} Normal [facility] Comment on above: Order Comment: 411-2 Performed By: #### L 300.3900 ####[facility] [address] [place], [address] PT Coag (PPP) [Time] 30.3 s High 11.7-14.9 [facility] Comment on above: Order Comment: 411-2 Performed By: #### L 300.3900 ####[facility] [address] [place], [address] Prothrombin timeOrdered By: Carlos Cavazos on 08-07-2024 PT Coag (PPP) [Time] 30.3 s High 11.7-14.9 [facility] International normalized rat io (INR) calculationOrdered By: Carlos Cavazos on 08-04-2024 INR Coag (Bld) [Relative time] 1.9 {INR} [facility] Prothrombin Time w/INRon INR Coag (PPP) [Relative time] 1.9 {INR} Normal [facility] Comment on above: Order Comment: 411-2 Performed By: #### L 300.3900 ####[facility] [address] [place], [address] PT Coag (PPP) [Time] 22.1 s High 11.7-14.9 [facility] Comment on above: Order Comment: 411-2 Performed By: #### L 300.3900 ####[facility] [address] [place], [place], [address] Prothrombin timeOrdered By: Carlos Cavazos on 08-04-2024 PT Coag (PPP) [Time] 22.1 s High 11.7-14.9 [facility] International normalized rat io (INR) calculationOrdered By: Karon Corrales on 07-31-2024 INR Coag (Bld) [Relative time] 3.2 {INR} [facility] Prothrombin Time w/INRon INR Coag (PPP) [Relative time] 3.2 {INR} Normal [facility] Comment on above: Order Comment: 411.2 Performed By: #### L 300.3900 ####[facility] [address] [place], [place], [address] PT Coag (PPP) [Time] 33.5 s High 11.7-14.9 [facility] Comment on above: Order Comment: 411.2 Performed By: #### L 300.3900 ####[facility] [address] [place], [place], [address] Prothrombin timeOrdered By: Karon Corrales on 07-31-2024 PT Coag (PPP) [Time] 33.5 s High 11.7-14.9 [facility] International normalized rat io (INR) calculationOrdered By: Karon Corrales on 07-28-2024 INR Coag (Bld) [Relative time] 2.7 {INR} [facility] Prothrombin Time w/INRon INR Coag (PPP) [Relative time] 2.7 {INR} Normal [facility] Comment on above: Order Comment: 411.2 Performed By: #### L 300.3900 ####[facility] [address] [place], [place], [phone] PT Coag (PPP) [Time] 29.6 s High 11.7-14.9 [facility] Comment on above: Order Comment: 411.2 Performed By: #### L 300.3900 ####[facility] [address] [place], [place], [address] Prothrombin timeOrdered By: Karon Corrales on 07-28-2024 PT Coag (PPP) [Time] 29.6 s High 11.7-14.9 [facility] International normalized rat io (INR) calculationOrdered By: Carlos Cavazos on 07-25-2024 INR Coag (Bld) [Relative time] 3.0 {INR} [facility] Prothrombin Time w/INRon INR Coag (PPP) [Relative time] 3.0 {INR} Normal [facility] Comment on above: Order Comment: 411-2 Performed By: #### L 300.3900 ####[facility] [address] [place], [address] Prothrombin timeOrdered By: Carlos Cavazos on 07-25-2024 PT Coag (PPP) [Time] 32.1 s High 11.7-14.9 [facility] Comment on above: Order Comment: 411-2 Performed By: #### L 300.3900 ####[facility] [address] [place], [place], [address] International normalized rat io (INR) calculationOrdered By: Karon Corrales on 07-24-2024 INR Coag (Bld) [Relative time] 3.4 {INR} [facility] Prothrombin Time w/INRon INR Coag (PPP) [Relative time] 3.4 {INR} Normal [facility] Comment on above: Order Comment: 411.2 Performed By: #### L 300.3900 ####[facility] [address] [place], [address] Prothrombin timeOrdered By: Karon Corrales on 07-24-2024 PT Coag (PPP) [Time] 35.4 s High 11.7-14.9 [facility] Comment on above: Order Comment: 411.2 Performed By: #### L 300.3900 ####[facility] [address] [place], [place], [phone](909) International normalized rat io (INR) calculationOrdered By: Karon Corrales on 07-21-2024 INR Coag (Bld) [Relative time] 1.6 {INR} [facility] Prothrombin Time w/INRon INR Coag (PPP) [Relative time] 1.6 {INR} Normal [facility] Comment on above: Order Comment: 411.2 Performed By: #### L 300.3900 ####[facility] [address] [place], [place], [phone]) PT Coag (PPP) [Time] 19.6 s High 11.7-14.9 [facility] Comment on above: Order Comment: 411.2 Performed By: #### L 300.3900 ####[facility] [address] [place], [place], [phone] Prothrombin timeOrdered By: Karon Corrales on 07-21-2024 PT Coag (PPP) [Time] 19.6 s High 11.7-14.9 [facility] International normalized rat io (INR) calculationOrdered By: Karon Corrales on 07-17-2024 INR Coag (Bld) [Relative time] 2.9 {INR} [facility] Prothrombin Time w/INRon INR Coag (PPP) [Relative time] 2.9 {INR} Normal [facility] Comment on above: Order Comment: 411.2 Performed By: #### L 300.3900 ####[facility] [address] [place], [place], [phone](034) PT Coag (PPP) [Time] 31.1 s High 11.7-14.9 [facility] Comment on above: Order Comment: 411.2 Performed By: #### L 300.3900 ####[facility] [address] [place], [address] Prothrombin timeOrdered By: Karon Corrales on 07-17-2024 PT Coag (PPP) [Time] 31.1 s High 11.7-14.9 [facility] International normalized rat io (INR) calculationOrdered By: Carlos Cavazos on 07-14-2024 INR Coag (Bld) [Relative time] 2.5 {INR} [facility] Prothrombin Time w/INRon INR Coag (PPP) [Relative time] 2.5 {INR} Normal [facility] Comment on above: Order Comment: 411-2 Performed By: #### L 300.3900 ####[facility] [address] [place], [address] PT Coag (PPP) [Time] 27.5 s High 11.7-14.9 [facility] Comment on above: Order Comment: 411-2 Performed By: #### L 300.3900 ####[facility] [address] [place], [address] Prothrombin timeOrdered By: Carlos Cavazos on 07-14-2024 PT Coag (PPP) [Time] 27.5 s High 11.7-14.9 [facility] International normalized rat io (INR) calculationOrdered By: Carlos Cavazos on 07-11-2024 INR Coag (Bld) [Relative time] 2.5 {INR} [facility] Prothrombin Time w/INRon INR Coag (PPP) [Relative time] 2.5 {INR} Normal [facility] Comment on above: Performed By: #### L 300.3900 ####[facility] [address] [place], [address] PT Coag (PPP) [Time] 27.7 s High 11.7-14.9 [facility] Comment on above: Performed By: #### L 300.3900 ####[facility] [address] [place], [address] Prothrombin timeOrdered By: Carlos Cavazos on 07-11-2024 PT Coag (PPP) [Time] 27.7 s High 11.7-14.9 [facility] Prothrombin Time w/INRon INR Normal [facility] Comment on above: Order Comment: 411.2 Result Comment: QNS TUBE NOT FILLED Performed By: #### L 300.3900 ####[facility] [address] [place], [address] PROTIME Normal 11.7-14.9 [facility] Comment on above: Order Comment: 411.2 Result Comment: QNS TUBE NOT FILLED Performed By: #### L 300.3900 ####[facility] [address] [place], [address] International normalized rat io (INR) calculationOrdered By: Kvng Crisostomo on 07-07-2024 INR Coag (Bld) [Relative time] 2.5 {INR} [facility] Prothrombin Time w/INRon INR Coag (PPP) [Relative time] 2.5 {INR} Normal [facility] Comment on above: Order Comment: 411.2 Performed By: #### L 300.3900 ####[facility] [address] [place], [address] PT Coag (PPP) [Time] 27.2 s High 11.7-14.9 [facility] Comment on above: Order Comment: 411.2 Performed By: #### L 300.3900 ####[facility] [address] [place], [address] Prothrombin timeOrdered By: Kvng Crisostomo on 07-07-2024 PT Coag (PPP) [Time] 27.2 s High 11.7-14.9 [facility] International normalized rat io (INR) calculationOrdered By: Kvng Crisostomo on 07-03-2024 INR Coag (Bld) [Relative time] 2.5 {INR} [facility] Prothrombin Time w/INRon INR Coag (PPP) [Relative time] 2.5 {INR} Normal [facility] Comment on above: Order Comment: 411.2 Performed By: #### L 300.3900 ####[facility] [facility] [address] [place], [place], [phone]) PT Coag (PPP) [Time] 27.2 s High 11.7-14.9 [facility] Comment on above: Order Comment: 411.2 Performed By: #### L 300.3900 ####[facility] [address] [place], [place], [phone] Prothrombin timeOrdered By: Kvng Crisostomo on 07-03-2024 PT Coag (PPP) [Time] 27.2 s High 11.7-14.9 [facility] International normalized rat io (INR) calculationOrdered By: Kvng Crisostomo on 06-30-2024 INR Coag (Bld) [Relative time] 2.4 {INR} [facility] Prothrombin Time w/INRon INR Coag (PPP) [Relative time] 2.4 {INR} Normal [facility] Comment on above: Order Comment: 411.2 Performed By: #### L 300.3900 ####[facility] [address] [place], [place], [phone]) PT Coag (PPP) [Time] 26.8 s High 11.7-14.9 [facility] Comment on above: Order Comment: 411.2 Performed By: #### L 300.3900 ####[facility] [address] [place], [place], [phone] Prothrombin timeOrdered By: Kvng Crisostomo on 06-30-2024 PT Coag (PPP) [Time] 26.8 s High 11.7-14.9 [facility] [employer] normalized rat io (INR) calculationOrdered By: Kvng Crisostomo on 06-26-2024 INR Coag (Bld) [Relative time] 2.5 {INR} [facility] Prothrombin Time w/INRon INR Coag (PPP) [Relative time] 2.5 {INR} Normal [facility] Comment on above: Order Comment: 411.2 Performed By: #### L 300.3900 ####[facility] [address] [place], [address] PT Coag (PPP) [Time] 27.5 s High 11.7-14.9 [facility] Comment on above: Order Comment: 411.2 Performed By: #### L 300.3900 ####[facility] [address] [place], [address] Prothrombin timeOrdered By: Kvng Crisostomo on 06-26-2024 PT Coag (PPP) [Time] 27.5 s High 11.7-14.9 [facility] International normalized rat io (INR) calculationOrdered By: Carlos Cavazos on 06-23-2024 INR Coag (Bld) [Relative time] 2.8 {INR} [facility] Prothrombin Time w/INRon INR Coag (PPP) [Relative time] 2.8 {INR} Normal [facility] Comment on above: Order Comment: 411-2 Performed By: #### L 300.3900 ####[facility] [address] [place], [address] PT Coag (PPP) [Time] 29.7 s High 11.7-14.9 [facility] Comment on above: Order Comment: 411-2 Performed By: #### L 300.3900 ####[facility] [address] [place], [address] Prothrombin timeOrdered By: Carlos Cavazos on 06-23-2024 PT Coag (PPP) [Time] 29.7 s High 11.7-14.9 [facility] International normalized rat io (INR) calculationOrdered By: Kvng Crisostomo on 06-19-2024 INR Coag (Bld) [Relative time] 2.6 {INR} [facility] Prothrombin Time w/INRon INR Coag (PPP) [Relative time] 2.6 {INR} Normal [facility] Comment on above: Order Comment: 411.2 Performed By: #### L 300.3900 ####[facility] [address] [place], [address] PT Coag (PPP) [Time] 28.6 s High 11.7-14.9 [facility] Comment on above: Order Comment: 411.2 Performed By: #### L 300.3900 ####[facility] [address] [place], [address] Prothrombin timeOrdered By: Kvng Crisostomo on 06-19-2024 PT Coag (PPP) [Time] 28.6 s High 11.7-14.9 [facility] International normalized rat io (INR) calculationOrdered By: Kvng Crisostomo on 06-16-2024 INR Coag (Bld) [Relative time] 2.5 {INR} [facility] Prothrombin Time w/INRon INR Coag (PPP) [Relative time] 2.5 {INR} Normal [facility] Comment on above: Order Comment: 411.2 Performed By: #### L 300.3900 ####[facility] [address] [place], [address] PT Coag (PPP) [Time] 27.3 s High 11.7-14.9 [facility] Comment on above: Order Comment: 411.2 Performed By: #### L 300.3900 ####[facility] [address] [place], [address] Prothrombin timeOrdered By: Kvng Crisostomo on 06-16-2024 PT Coag (PPP) [Time] 27.3 s High 11.7-14.9 [facility] International normalized rat io (INR) calculationOrdered By: Kvng Crisostomo on 06-12-2024 INR Coag (Bld) [Relative time] 2.1 {INR} [facility] Prothrombin Time w/INRon INR Coag (PPP) [Relative time] 2.1 {INR} Normal [facility] Comment on above: Order Comment: 411.2 Performed By: #### L 300.3900 ####[facility] [address] [place], [address] PT Coag (PPP) [Time] 24.0 s High 11.7-14.9 [facility] Comment on above: Order Comment: 411.2 Performed By: #### L 300.3900 ####[facility] [address] [place], [place], [phone] Prothrombin timeOrdered By: Kvng Crisostomo on 06-12-2024 PT Coag (PPP) [Time] 24.0 s High 11.7-14.9 [facility] International normalized rat io (INR) calculationOrdered By: Carlos Cavazos on 06-09-2024 INR Coag (Bld) [Relative time] 1.5 {INR} [facility] Prothrombin Time w/INRon INR Coag (PPP) [Relative time] 1.5 {INR} Normal [facility] Comment on above: Order Comment: 411-2 Performed By: #### L 300.3900 ####[facility] [address] [place], [address] PT Coag (PPP) [Time] 18.0 s High 11.7-14.9 [facility] Comment on above: Order Comment: 411-2 Performed By: #### L 300.3900 ####[facility] [address] [place], [address] Prothrombin timeOrdered By: Carlos Cavazos on 06-09-2024 PT Coag (PPP) [Time] 18.0 s High 11.7-14.9 [facility] International normalized rat io (INR) calculationOrdered By: Kvng Crisostomo on 06-05-2024 INR Coag (Bld) [Relative time] 2.8 {INR} [facility] Prothrombin Time w/INRon INR Coag (PPP) [Relative time] 2.8 {INR} Normal [facility] Comment on above: Order Comment: 411.2 Performed By: #### L 300.3900 ####[facility] [address] [place], [address] PT Coag (PPP) [Time] 30.3 s High 11.7-14.9 [facility] Comment on above: Order Comment: 411.2 Performed By: #### L 300.3900 ####[facility] [address] [place], [address] Prothrombin timeOrdered By: Kvng Crisostomo on 06-05-2024 PT Coag (PPP) [Time] 30.3 s High 11.7-14.9 [facility] International normalized rat io (INR) calculationOrdered By: Kvng Crisostomo on 06-02-2024 INR Coag (Bld) [Relative time] 2.6 {INR} [facility] Prothrombin Time w/INRon INR Coag (PPP) [Relative time] 2.6 {INR} Normal [facility] Comment on above: Order Comment: 411.2 Performed By: #### L 300.3900 ####[facility] [address] [place], [address] PT Coag (PPP) [Time] 28.6 s High 11.7-14.9 [facility] Comment on above: Order Comment: 411.2 Performed By: #### L 300.3900 ####[facility] [address] [place], [place], [phone](979) Prothrombin timeOrdered By: Kvng Crisostomo on 06-02-2024 PT Coag (PPP) [Time] 28.6 s High 11.7-14.9 [facility] International normalized rat io (INR) calculationOrdered By: Kvng Crisostomo on 05-29-2024 INR Coag (Bld) [Relative time] 2.5 {INR} [facility] Prothrombin Time w/INRon INR Coag (PPP) [Relative time] 2.5 {INR} Normal [facility] Comment on above: Order Comment: 411.2 Performed By: #### L 300.3900 ####[facility] [address] [place], [place], [phone] PT Coag (PPP) [Time] 27.7 s High 11.7-14.9 [facility] Comment on above: Order Comment: 411.2 Performed By: #### L 300.3900 ####[facility] [address] [place], [place], [phone](141) Prothrombin timeOrdered By: Kvng Crisostomo on 05-29-2024 PT Coag (PPP) [Time] 27.7 s High 11.7-14.9 [facility] International normalized rat io (INR) calculationOrdered By: Carlos Cavazos on 05-26-2024 INR Coag (Bld) [Relative time] 2.2 {INR} [facility] Prothrombin Time w/INRon INR Coag (PPP) [Relative time] 2.2 {INR} Normal [facility] Comment on above: Order Comment: 411-2 Performed By: #### L 300.3900 ####[facility] [address] [place], [address] PT Coag (PPP) [Time] 24.5 s High 11.7-14.9 [facility] Comment on above: Order Comment: 411-2 Performed By: #### L 300.3900 ####[facility] [address] [place], [place], [phone] Prothrombin timeOrdered By: Carlos Cavazos on 05-26-2024 PT Coag (PPP) [Time] 24.5 s High 11.7-14.9 [facility] International normalized rat io (INR) calculationOrdered By: Kvng Crisostomo on 05-22-2024 INR Coag (Bld) [Relative time] 2.8 {INR} [facility] Prothrombin Time w/INRon INR Coag (PPP) [Relative time] 2.8 {INR} Normal [facility] Comment on above: Order Comment: 411.2 Performed By: #### L 300.3900 ####[facility] [address] [place], [place], [phone] PT Coag (PPP) [Time] 30.3 s High 11.7-14.9 [facility] Comment on above: Order Comment: 411.2 Performed By: #### L 300.3900 ####[facility] [address] [place], [place], [phone] Prothrombin timeOrdered By: Kvng Crisostomo on 05-22-2024 PT Coag (PPP) [Time] 30.3 s High 11.7-14.9 [facility] International normalized rat io (INR) calculationOrdered By: Kvng Crisostomo on 05-20-2024 INR Coag (Bld) [Relative time] 4.0 {INR} High [facility] Comment on above: CRITICAL VALUE CASEY D TO [id number]/14/25 0828 Diana Mattson.RESULTS READ BACK BY SAME. Prothrombin Time w/INRon INR Coag (PPP) [Relative time] 4.0 {INR} Invalid Interpretation Code [facility] Comment on above: Order Comment: 411.2 Result Comment: CRIT ICAL VALUE CALLED TO [id number]/14/25 0828 Diana Mattson.RESULTS READ BACK BY SAME. Performed By: #### L 300.3900 ####[facility] [address] [place], [address] PT Coag (PPP) [Time] 39.9 s High 11.7-14.9 [facility] Comment on above: Order Comment: 411.2 Performed By: #### L 300.3900 ####[facility] [address] [place], [address] Prothrombin timeOrdered By: Kvng Crisostomo on 05-20-2024 PT Coag (PPP) [Time] 39.9 s High 11.7-14.9 [facility] International normalized rat io (INR) calculationOrdered By: Kvng Crisostomo on 05-19-2024 INR Coag (Bld) [Relative time] 3.4 {INR} [facility] Prothrombin Time w/INRon INR Coag (PPP) [Relative time] 3.4 {INR} Normal [facility] Comment on above: Order Comment: 411.2 Performed By: #### L 300.3900 ####[facility] [address] [place], [address] PT Coag (PPP) [Time] 35.4 s High 11.7-14.9 [facility] Comment on above: Order Comment: 411.2 Performed By: #### L 300.3900 ####[facility] [address] [place], [address] Prothrombin timeOrdered By: Kvng Crisostomo on 05-19-2024 PT Coag (PPP) [Time] 35.4 s High 11.7-14.9 [facility] International normalized rat io (INR) calculationOrdered By: Kvng Crisostomo on 05-15-2024 INR Coag (Bld) [Relative time] 2.6 {INR} [facility] Prothrombin Time w/INRon INR Coag (PPP) [Relative time] 2.6 {INR} Normal [facility] Comment on above: Order Comment: 411.2 Performed By: #### L 300.3900 ####[facility] [address] [place], [place], [phone] PT Coag (PPP) [Time] 28.7 s High 11.7-14.9 [facility] Comment on above: Order Comment: 411.2 Performed By: #### L 300.3900 ####[facility] [address] [place], [address] Prothrombin timeOrdered By: Kvng Crisostomo on 05-15-2024 PT Coag (PPP) [Time] 28.7 s High 11.7-14.9 [facility] International normalized rat io (INR) calculationOrdered By: Carlos Cavazos on 05-12-2024 INR Coag (Bld) [Relative time] 2.1 {INR} [facility] Prothrombin Time w/INRon INR Coag (PPP) [Relative time] 2.1 {INR} Normal [facility] Comment on above: Order Comment: 411-2 Performed By: #### L 300.3900 ####[facility] [address] [place], [address] PT Coag (PPP) [Time] 24.1 s High 11.7-14.9 [facility] Comment on above: Order Comment: 411-2 Performed By: #### L 300.3900 ####[facility] [address] [place], [address] Prothrombin timeOrdered By: Carlos Cavazos on 05-12-2024 PT Coag (PPP) [Time] 24.1 s High 11.7-14.9 [facility] International normalized rat io (INR) calculationOrdered By: Kvng Crisostomo on 05-09-2024 INR Coag (Bld) [Relative time] 3.4 {INR} [facility] Prothrombin Time w/INRon INR Coag (PPP) [Relative time] 3.4 {INR} Normal [facility] Comment on above: Order Comment: 411.2 Performed By: #### L 300.3900 ####[facility] [address] [place], [address] PT Coag (PPP) [Time] 35.4 s High 11.7-14.9 [facility] Comment on above: Order Comment: 411.2 Performed By: #### L 300.3900 ####[facility] [address] [place], [address] Prothrombin timeOrdered By: Kvng Crisostomo on 05-09-2024 PT Coag (PPP) [Time] 35.4 s High 11.7-14.9 [facility] International normalized rat io (INR) calculationOrdered By: Kvng Crisostomo on 05-08-2024 INR Coag (Bld) [Relative time] 4.1 {INR} High [facility] Comment on above: CRITICAL VALUE CASEY D TO [facility]05/08/24 0950 Karen Haven.RESULTS READ BACK BY SAME. Prothrombin Time w/INRon INR Coag (PPP) [Relative time] 4.1 {INR} Invalid Interpretation Code [facility] Comment on above: Order Comment: 411.2 Result Comment: CRIT ICAL VALUE CALLED TO [facility]05/08/24 0950 Karen Haven.RESULTS READ BACK BY SAME. Performed By: #### L 300.3900 ####[facility] [address] [place], [address] PT Coag (PPP) [Time] 40.8 s High 11.7-14.9 [facility] Comment on above: Order Comment: 411.2 Performed By: #### L 300.3900 ####[facility] [address] [place], [address] Prothrombin timeOrdered By: Kvng Crisostomo on 05-08-2024 PT Coag (PPP) [Time] 40.8 s High 11.7-14.9 [facility] International normalized rat io (INR) calculationOrdered By: Kvng Crisostomo on 05-05-2024 INR Coag (Bld) [Relative time] 3.2 {INR} [facility] Prothrombin Time w/INRon INR Coag (PPP) [Relative time] 3.2 {INR} Normal [facility] Comment on above: Order Comment: 411.2 Performed By: #### L 300.3900 ####[facility] [address] [place], [address] PT Coag (PPP) [Time] 32.5 s High 11.7-14.9 [facility] Comment on above: Order Comment: 411.2 Performed By: #### L 300.3900 ####[facility] [address] [place], [address] Prothrombin timeOrdered By: Kvng Crisostomo on 05-05-2024 PT Coag (PPP) [Time] 32.5 s High 11.7-14.9 [facility] International normalized rat io (INR) calculationOrdered By: Kvng Crisostomo on 05-01-2024 INR Coag (Bld) [Relative time] 3.1 {INR} [facility] Prothrombin Time w/INRon INR Coag (PPP) [Relative time] 3.1 {INR} Normal [facility] Comment on above: Order Comment: 411.2 Performed By: #### L 300.3900 ####[facility] [address] [facility] [address] PT Coag (PPP) [Time] 31.9 s High 11.7-14.9 [facility] Comment on above: Order Comment: 411.2 Performed By: #### L 300.3900 ####[facility] [address] [place], [address] Prothrombin timeOrdered By: Kvng Crisostomo on 05-01-2024 PT Coag (PPP) [Time] 31.9 s High 11.7-14.9 [facility] International normalized rat io (INR) calculationOrdered By: Carlos Cavazos on 04-28-2024 INR Coag (Bld) [Relative time] 2.6 {INR} [facility] Prothrombin Time w/INRon INR Coag (PPP) [Relative time] 2.6 {INR} Normal [facility] Comment on above: Order Comment: 411-2 Performed By: #### L 300.3900 ####[facility] [address] [place], [address] PT Coag (PPP) [Time] 27.3 s High 11.7-14.9 [facility] Comment on above: Order Comment: 411-2 Performed By: #### L 300.3900 ####[facility] [address] [place], [address] Prothrombin timeOrdered By: Carlos Cavazos on 04-28-2024 PT Coag (PPP) [Time] 27.3 s High 11.7-14.9 [facility] International normalized rat io (INR) calculationOrdered By: Kvng Crisostomo on 04-24-2024 INR Coag (Bld) [Relative time] 3.6 {INR} [facility] Prothrombin Time w/INRon INR Coag (PPP) [Relative time] 3.6 {INR} Normal [facility] Comment on above: Order Comment: 411.2 Performed By: #### L 300.3900 ####[facility] [address] [place], [address] PT Coag (PPP) [Time] 35.6 s High 11.7-14.9 [facility] Comment on above: Order Comment: 411.2 Performed By: #### L 300.3900 ####[facility] [address] [place], [address] Prothrombin timeOrdered By: Kvng Crisostomo on 04-24-2024 PT Coag (PPP) [Time] 35.6 s High 11.7-14.9 [facility] International normalized rat io (INR) calculationOrdered By: Carlos Cavazos on 04-21-2024 INR Coag (Bld) [Relative time] 2.8 {INR} [facility] Prothrombin Time w/INRon INR Coag (PPP) [Relative time] 2.8 {INR} Normal [facility] Comment on above: Order Comment: 411-2 Performed By: #### L 300.3900 ####[facility] [address] [place], [place], [phone] PT Coag (PPP) [Time] 29.4 s High 11.7-14.9 [facility] Comment on above: Order Comment: 411-2 Performed By: #### L 300.3900 ####[facility] [address] [place], [place], [phone](439) Prothrombin timeOrdered By: Carlos Cavazos on 04-21-2024 PT Coag (PPP) [Time] 29.4 s High 11.7-14.9 [facility] International normalized rat io (INR) calculationOrdered By: Kvng Crisostomo on 04-17-2024 INR Coag (Bld) [Relative time] 3.1 {INR} [facility] Prothrombin Time w/INRon INR Coag (PPP) [Relative time] 3.1 {INR} Normal [facility] Comment on above: Order Comment: 411.2 Performed By: #### L 300.3900 ####[facility] [address] [place], [place], [phone] Prothrombin timeOrdered By: Kvng Crisostomo on 04-17-2024 PT Coag (PPP) [Time] 31.3 s High 11.7-14.9 [facility] Comment on above: Order Comment: 411.2 Performed By: #### L 300.3900 ####[facility] [address] [place], [place], [phone] International normalized rat io (INR) calculationOrdered By: Kvng Crisostomo on 04-14-2024 INR Coag (Bld) [Relative time] 3.3 {INR} [facility] Prothrombin Time w/INRon INR Coag (PPP) [Relative time] 3.3 {INR} Normal [facility] Comment on above: Order Comment: 411.2 Performed By: #### L 300.3900 ####[facility] [address] [place], [address] PT Coag (PPP) [Time] 33.2 s High 11.7-14.9 [facility] Comment on above: Order Comment: 411.2 Performed By: #### L 300.3900 ####[facility] [address] [place], [address] Prothrombin timeOrdered By: Kvng Crisostomo on 04-14-2024 PT Coag (PPP) [Time] 33.2 s High 11.7-14.9 [facility] International normalized rat io (INR) calculationOrdered By: Kvng Crisostomo on 04-10-2024 INR Coag (Bld) [Relative time] 2.8 {INR} [facility] Prothrombin Time w/INRon INR Coag (PPP) [Relative time] 2.8 {INR} Normal [facility] Comment on above: Order Comment: 411.2 Performed By: #### L 300.3900 ####[facility] [address] [place], [address] PT Coag (PPP) [Time] 29.2 s High 11.7-14.9 [facility] Comment on above: Order Comment: 411.2 Performed By: #### L 300.3900 ####[facility] [address] [place], [address] Prothrombin timeOrdered By: Kvng Crisostomo on 04-10-2024 PT Coag (PPP) [Time] 29.2 s High 11.7-14.9 [facility] International normalized rat io (INR) calculationOrdered By: Carlos Cavazos on 04-07-2024 INR Coag (Bld) [Relative time] 2.7 {INR} [facility] Prothrombin Time w/INRon INR Coag (PPP) [Relative time] 2.7 {INR} Normal [facility] Comment on above: Order Comment: 411-2 Performed By: #### L 300.3900 ####[facility] [address] [place], [place], [phone] PT Coag (PPP) [Time] 28.1 s High 11.7-14.9 [facility] Comment on above: Order Comment: 411-2 Performed By: #### L 300.3900 ####[facility] [address] [place], [address](586) Prothrombin timeOrdered By: Carlos Cavazos on 04-07-2024 PT Coag (PPP) [Time] 28.1 s High 11.7-14.9 [facility] International normalized rat io (INR) calculationOrdered By: Kvng Crisostomo on 04-04-2024 INR Coag (Bld) [Relative time] 2.8 {INR} [facility] Prothrombin Time w/INRon INR Coag (PPP) [Relative time] 2.8 {INR} Normal [facility] Comment on above: Order Comment: 411.2 Performed By: #### L 300.3900 ####[facility] [address] [place], [place], [phone] PT Coag (PPP) [Time] 28.9 s High 11.7-14.9 [facility] Comment on above: Order Comment: 411.2 Performed By: #### L 300.3900 ####[facility] [address] [place], [place], [phone] Prothrombin timeOrdered By: Kvng Crisostomo on 04-04-2024 PT Coag (PPP) [Time] 28.9 s High 11.7-14.9 [facility] International normalized rat io (INR) calculationOrdered By: Carlos Cavazos on 03-31-2024 INR Coag (Bld) [Relative time] 2.6 {INR} [facility] Prothrombin Time w/INRon INR Coag (PPP) [Relative time] 2.6 {INR} Normal [facility] Comment on above: Order Comment: 411-2 Performed By: #### L 300.3900 ####[facility] [address] [place], [place], [phone](138 PT Coag (PPP) [Time] 27.3 s High 11.7-14.9 [facility] Comment on above: Order Comment: 411-2 Performed By: #### L 300.3900 ####[facility] [address] [place], [place], [phone](246) Prothrombin timeOrdered By: Carlos Cavazos on 03-31-2024 PT Coag (PPP) [Time] 27.3 s High 11.7-14.9 [facility] International normalized rat io (INR) calculationOrdered By: [employer] on 03-27-2024 INR Coag (Bld) [Relative time] 2.2 {INR} [facility] Prothrombin Time w/INRon INR Coag (PPP) [Relative time] 2.2 {INR} Normal [facility] Comment on above: Order Comment: 411.2 Performed By: #### L 300.3900 ####[facility] [address] [place], [place], [phone] PT Coag (PPP) [Time] 24.3 s High 11.7-14.9 [facility] Comment on above: Order Comment: 411.2 Performed By: #### L 300.3900 ####[facility] [address] [place], [place], [phone](252) Prothrombin timeOrdered By: [employer] on 03-27-2024 PT Coag (PPP) [Time] 24.3 s High 11.7-14.9 [facility] International normalized rat io (INR) calculationOrdered By: Kvng Crisostomo on 03-24-2024 INR Coag (Bld) [Relative time] 1.8 {INR} [facility] Prothrombin Time w/INRon INR Coag (PPP) [Relative time] 1.8 {INR} Normal [facility] [facility] Comment on above: Order Comment: 411.2 Performed By: #### L 300.3900 ####[facility] [address] [place], [place], [phone]) PT Coag (PPP) [Time] 20.7 s High 11.7-14.9 [facility] Comment on above: Order Comment: 411.2 Performed By: #### L 300.3900 ####[facility] [address] [place], [place], [phone] Prothrombin timeOrdered By: Kvng Crisostomo on 03-24-2024 PT Coag (PPP) [Time] 20.7 s High 11.7-14.9 [facility] International normalized rat io (INR) calculationOrdered By: [employer] on 03-20-2024 INR Coag (Bld) [Relative time] 1.8 {INR} [facility] Prothrombin Time w/INRon INR Coag (PPP) [Relative time] 1.8 {INR} Normal [facility] Comment on above: Order Comment: 411.2 Performed By: #### L 300.3900 ####[facility] [address] [place], [place], [phone]) PT Coag (PPP) [Time] 20.9 s High 11.7-14.9 [facility] Comment on above: Order Comment: 411.2 Performed By: #### L 300.3900 ####[facility] [address] [place], [place], [phone]) Prothrombin timeOrdered By: [employer] on 03-20-2024 PT Coag (PPP) [Time] 20.9 s High 11.7-14.9 [facility] International normalized rat io (INR) calculationOrdered By: Kvng Crisostomo on 03-19-2024 INR Coag (Bld) [Relative time] 2.4 {INR} [facility] Prothrombin Time w/INRon INR Coag (PPP) [Relative time] 2.4 {INR} Normal [facility] Comment on above: Order Comment: 411.2 Performed By: #### L 300.3900 ####[facility] [address] [place], [address] PT Coag (PPP) [Time] 26.4 s High 11.7-14.9 [facility] Comment on above: Order Comment: 411.2 Performed By: #### L 300.3900 ####[facility] [address] [place], [address] Prothrombin timeOrdered By: Kvng Crisostomo on 03-19-2024 PT Coag (PPP) [Time] 26.4 s High 11.7-14.9 [facility] International normalized rat io (INR) calculationOrdered By: [employer] on 03-18-2024 INR Coag (Bld) [Relative time] 3.2 {INR} [facility] Prothrombin Time w/INRon INR Coag (PPP) [Relative time] 3.2 {INR} Normal [facility] Comment on above: Order Comment: 411.2 Performed By: #### L 300.3900 ####[facility] [address] [place], [address] PT Coag (PPP) [Time] 32.3 s High 11.7-14.9 [facility] Comment on above: Order Comment: 411.2 Performed By: #### L 300.3900 ####[facility] [address] [place], [address] Prothrombin timeOrdered By: [employer] on 03-18-2024 PT Coag (PPP) [Time] 32.3 s High 11.7-14.9 [facility] International normalized rat io (INR) calculationOrdered By: [employer] on 03-17-2024 INR Coag (Bld) [Relative time] 3.6 {INR} [facility] Prothrombin Time w/INRon INR Coag (PPP) [Relative time] 3.6 {INR} Normal [facility] Comment on above: Order Comment: 411.2 Performed By: #### L 300.3900 ####[facility] [address] [place], [address] PT Coag (PPP) [Time] 35.7 s High 11.7-14.9 [facility] Comment on above: Order Comment: 411.2 Performed By: #### L 300.3900 ####[facility] [address] [place], [address] Prothrombin timeOrdered By: [employer] on 03-17-2024 PT Coag (PPP) [Time] 35.7 s High 11.7-14.9 [facility] International normalized rat io (INR) calculationOrdered By: Carlos Cavazos on 03-14-2024 INR Coag (Bld) [Relative time] 3.5 {INR} [facility] Prothrombin Time w/INRon INR Coag (PPP) [Relative time] 3.5 {INR} Normal [facility] Comment on above: Order Comment: 411-2 Performed By: #### L 300.3900 ####[facility] [address] [place], [address] PT Coag (PPP) [Time] 35.0 s High 11.7-14.9 [facility] Comment on above: Order Comment: 411-2 Performed By: #### L 300.3900 ####[facility] [address] [place], [address] Prothrombin timeOrdered By: Carlos Cavazos on 03-14-2024 PT Coag (PPP) [Time] 35.0 s High 11.7-14.9 [facility] International normalized rat io (INR) calculationOrdered By: [employer] on 03-13-2024 INR Coag (Bld) [Relative time] 3.2 {INR} [facility] Prothrombin Time w/INRon INR Coag (PPP) [Relative time] 3.2 {INR} Normal [facility] Comment on above: Performed By: #### L 300.3900 ####[facility] [address] [place], [address] PT Coag (PPP) [Time] 32.2 s High 11.7-14.9 [facility] Comment on above: Performed By: #### L 300.3900 ####[facility] [address] [place], [address] Prothrombin timeOrdered By: [employer] on 03-13-2024 PT Coag (PPP) [Time] 32.2 s High 11.7-14.9 [facility] Prothrombin Time w/INRon INR Coag (PPP) [Relative time] 2.6 {INR} Normal [facility] Comment on above: Order Comment: 411.2 Performed By: #### L 300.3900 ####[facility] [address] [place], [address] PT Coag (PPP) [Time] 27.7 s High 11.7-14.9 [facility] Comment on above: Order Comment: 411.2 Performed By: #### L 300.3900 ####[facility] [address] [place], [address] Prothrombin Time w/INRon INR Coag (PPP) [Relative time] 3.1 {INR} Normal [facility] Comment on above: Order Comment: 411.2 Performed By: #### L 300.3900 ####[facility] [address] [place], [address] PT Coag (PPP) [Time] 31.4 s High 11.7-14.9 [facility] Comment on above: Order Comment: 411.2 Performed By: #### L 300.3900 ####[facility] [address] [place], [address] Prothrombin Time w/INRon INR Coag (PPP) [Relative time] 3.1 {INR} Normal [facility] Comment on above: Order Comment: 411.2 Performed By: #### L 300.3900 ####[facility] [address] [place], [address] PT Coag (PPP) [Time] 31.8 s High 11.7-14.9 [facility] Comment on above: Order Comment: 411.2 Performed By: #### L 300.3900 ####[facility] [address] [place], [address] Prothrombin Time w/INRon INR Coag (PPP) [Relative time] 3.0 {INR} Normal [facility] Comment on above: Order Comment: 411.2 Performed By: #### L 300.3900 ####[facility] [address] [place], [address] PT Coag (PPP) [Time] 30.6 s High 11.7-14.9 [facility] Comment on above: Order Comment: 411.2 Performed By: #### L 300.3900 ####[facility] [address] [place], [address] Prothrombin Time w/INRon INR Coag (PPP) [Relative time] 2.6 {INR} Normal [facility] Comment on above: Order Comment: 411-2 Performed By: #### L 300.3900 ####[facility] [address] [place], [address] PT Coag (PPP) [Time] 27.5 s High 11.7-14.9 [facility] Comment on above: Order Comment: 411-2 Performed By: #### L 300.3900 ####[facility] [address] [place], [address] Office Visiton 09-13-2023 Follow-up visit [id number] Tamie Sifuentes cheng Gonzalez 1950 M Date Provider Department Center 09/13/2023 [id number]-SIHOALREBECCA [facility]CK [facility] None Family History Problem Relation Age of Onset Heart disease Father Cancer Mother Family Status - Relation Status Age at Father Mother Level of Service:75040 HI OFFICE/OUTPATIENT ESTABLISHED MOD MDM 30 MIN Reason for Visit and Comments: left flank pain [Other] - 8/10 pain when touched Normal [facility] Progress Noteon 09-13-2023 Progress Note Walt Moran [...] Hydrocephalus, adult (CMS/HCC) (HCC) 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 Normal [facility] CT ABDOMEN PELVIS WO IV CONT KATHYRaymon 09-07-2023 CT ABDOMEN PELVIS WO IV CONTRAST Patient Name[facility]W [facility] 1950 [id number] Exam Date/Time: 09/06/2023 18:14 Procedure: CT ABDOMEN [...] a kidney stone; pt has a hernia [facility] 36on 08-29-2023 36 Lm on daughters vm t o advise them to call the number for the product introduction manager to get clarification, and to call back with further questions [facility] [id number] 36 Yes, they will need to call the number given to them. [facility] 36 Please advise [facility] 36on 08-21-2023 36 Name of caller: Zion holt Contact phone number: [phone] Relationship to Patient: patient Provider: MD Quinn Practice: [facility] Chief Complaint/Reason for Call: Shanthi called in to see if Pt would need to come by cot for his CT appt due to Pt being [place]. [facility] did reach out to office and was advised to reach out to Central Scheduling. [facility] did reach out to and was advised to let [facility] know that she would need to reach out to call Maury Cedeño Roofing Sales Representative at [facility] [phone] to get clarifications. [facility] did reach back out to [facility] and advised and provider Maury's #. Please advise Best time of day caller can be reached: Any Patient advised that office/PCP has 24-48 business hours to return their call: N/A [facility] - CoagulationOrde red By: Carlos Cavazos on 08-21-2023 INR Coag (Bld) [Relative time] 2.7 {INR} [facility] PT Coag (PPP) [Time] 28.9 s 11.7-14.9 [facility] Office Visiton 08-13-2023 Follow-up visit [id number] Tamie Sifuentes 1950 M Date Provider Department Center 08/13/2023 [id number]-YJLPELREBECCA BUCK [facility] None Family History Problem Relation Age of Onset Heart disease Father Cancer Mother Family Status - Relation Status Age at Father Mother Level of Service:30090 HI OFFICE/OUTPATIENT NEW MODERATE MDM 45 MINUTES Reason for Visit and Comments: New Patient [542] - Bilateral flank pain, hx of kidney stones Nephrolithiasis [770992] Normal [facility] Progress Noteon 08-13-2023 Progress Note Walt Moran [...] Hydrocephalus, adult (CMS/HCC) (HCC) 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 Normal [facility] No Panel InformationOrdered By: Carlos Cavazos on 08-03-2023 Levetiracetam (Keppra) Level 32.4 ug/mL 10.0-40.0 [facility] Comment on above: Performed at: [address] [id number] Director: Alpesh Vázquez MD, Phone: [phone] Basophil percentageOrdered B y: Carlos Cavazos on 07-20-2023 Chloride [Moles/Vol] 106 mmol/L 98-107 [facility] Glucose [Mass/Vol] 98 mg/dL 74-106 [facility] Hemoglobin (Bld) [Mass/Vol] 12.5 g/dL 13.0-16.5 [facility] Potassium [Moles/Vol] 4.3 mmol/L 3.5-5.1 [facility] Sodium [Moles/Vol] 135 mmol/L 136-145 [facility] WBC (Bld) [#/Vol] 13.0 10*3/uL 4.4-11.[address] [facility] Determination of erythrocyte mean corpuscular [...] Institute MCHC (RBC) [Mass/Vol] 31.3 g/dL 32-36 [facility] Platelet mean volume (Bld) [Entitic vol] [...] 07-20-2023 RBC (Bld) [#/Vol] 4.63 10*6/uL 4.6-6.[address] [facility] Serum or plasma calcium oral urement (mass/volume)Ordered By: Carlos Cavazos on 07-20-2023 Calcium [Mass/Vol] 8.6 mg/dL 8.5-10.1 [facility] Serum or plasma creatinine m easurement (mass/volume)Ordered By: Carlos Cavazos on 07-20-2023 Creatinine [Mass/Vol] 0.85 mg/dL 0.70-1.30 [facility] Comment on above: The validity of [...] on 07-18-2023 Chloride [Moles/Vol] 102 mmol/L 98-107 [facility] Glucose [Mass/Vol] 96 mg/dL 74-106 [facility] Hemoglobin (Bld) [Mass/Vol] 12.3 g/dL 13.0-16.5 [facility] Potassium [Moles/Vol] 4.2 mmol/L 3.5-5.1 [facility] Sodium [Moles/Vol] 136 mmol/L 136-145 [facility] WBC (Bld) [#/Vol] 14.7 10*3/uL 4.4-11.[address] [facility] Determination of erythrocyte mean corpuscular volume (MCV)Ordered By: Carlos Cavazos on 07-18-2023 MCV (RBC) [Entitic vol] 85.4 fL 80-94 [facility] Erythrocyte distribution wid th ratioOrdered By: Carlos Cvaazos on 07-18-2023 Erythrocyte distribution width (RBC) [Ratio] [...] Institute MCHC (RBC) [Mass/Vol] 31.3 g/dL 32-36 [facility] Platelet mean volume (Bld) [Entitic vol] [...] 07-18-2023 RBC (Bld) [#/Vol] 4.60 10*6/uL 4.6-6.[address] [facility] Serum or plasma calcium oral urement (mass/volume)Ordered By: Carlos Cavazos on 07-18-2023 Calcium [Mass/Vol] 8.9 mg/dL 8.5-10.1 [facility] Serum or plasma creatinine m easurement (mass/volume)Ordered By: Carlos Cavazos on 07-18-2023 Creatinine [Mass/Vol] 0.86 mg/dL 0.70-1.30 [facility] Comment on above: The validity of [...] 07-17-2023 Basophil percentage 0-5 SEEN /hpf 0-5 [facility] Bilirubin Test strip Ql (U)O [...] Mucus Ql (Urine sed) 0 SEEN /hpf [facility] Nitrite Test strip Ql (U)Ord ered [...] 07-17-2023 Urobilinogen Ql (U) Normal mg/dl Normal [facility] Absolute lymphocyte countOrd ered By: Calros Cavazos on 07-16-2023 Lymphocytes Auto (Unsp spec) [#/Vol] 6.02 10*3/uL 0.83-4.51 [facility] Automated lymphocyte count a s percentage of total leukocytesOrdered By: Carlos Cavazos on 07-16-2023 Lymphocytes/100 WBC Auto (Unsp spec) 49.1 % 19-41 [facility] Basophil percentageOrdered B y: Carlos Cavazos on 07-16-2023 Basophils/100 WBC (Bld) 0.6 % 0-1 [facility] Chloride [Moles/Vol] 105 mmol/L 98-107 [facility] Eosinophils/100 WBC (Bld) 2.0 % 0-5 [facility] Glucose [Mass/Vol] 93 mg/dL 74-106 [facility] Hemoglobin (Bld) [Mass/Vol] 12.1 g/dL 13.0-16.5 [facility] Monocytes/100 WBC (Bld) 5.3 % 0-10 [facility] Neutrophils (Bld) [#/Vol] 5.2 10*3/uL 2.0-7.7 [facility] Neutrophils/100 WBC (Bld) 42.8 % 47-70 [facility] Potassium [Moles/Vol] 4.3 mmol/L 3.5-5.[address] [facility] Sodium [Moles/Vol] 138 mmol/L 136-145 [facility] r [facility] WBC (Bld) [#/Vol] 12.3 10*3/uL 4.4-11.0 [facility] Blood manual differential co mment interpretation (narrative [...] PT Coag (PPP) [Time] 25.7 s 11.7-14.9 [facility] Laboratory - Hematology and Cell countsOrdered By: Carlos Cavazos on 07-16-2023 MCH (RBC) [Entitic mass] 27.1 pg 27.0-32.0 [facility] MCHC (RBC) [Mass/Vol] 31.3 g/dL 32-36 [facility] Nucleated RBC/100 WBC (Bld) [Ratio] 0 [...] above: Non- GFR Calc Reactive Lymphocytes 1+ [facility] RBC Auto (Bld) [#/Vol]Ordere d By: Carlos Cavazos on 07-16-2023 RBC (Bld) [#/Vol] 4.46 10*6/uL 4.6-6.[address] [facility] Serum or plasma calcium oral urement (mass/volume)Ordered By: Carlos Cavazos on 07-16-2023 Calcium [Mass/Vol] 9.0 mg/dL 8.5-10.1 [facility] Serum or plasma creatinine m easurement (mass/volume)Ordered By: Carlos Cavazos on 07-16-2023 Creatinine [Mass/Vol] 0.90 mg/dL 0.70-1.30 [facility] Comment on above: The validity of [...] [facility] Chloride [Moles/Vol] 107 mmol/L 98-107 [facility] Eosinophils/100 WBC (Bld) 1.7 % 0-5 [facility] Glucose [Mass/Vol] 96 mg/dL 74-106 [facility] Hemoglobin (Bld) [Mass/Vol] 13.5 g/dL 13.0-16.5 [facility] Monocytes/100 WBC (Bld) 4.3 % 0-10 [facility] Neutrophils (Bld) [#/Vol] 5.3 10*3/uL 2.0-7.7 [facility] Neutrophils/100 WBC (Bld) 46.0 % 47-70 [facility] Potassium [Moles/Vol] 4.0 mmol/L 3.5-5.1 [facility] Sodium [Moles/Vol] 139 mmol/L 136-145 [facility] WBC (Bld) [#/Vol] 11.5 10*3/uL 4.4-11.[address] [facility] Determination of erythrocyte mean corpuscular [...] Institute MCHC (RBC) [Mass/Vol] 32.0 g/dL 32-36 [facility] Nucleated RBC/100 WBC (Bld) [Ratio] 0 [...] [facility] Comment on above: Performed at: [address] [id number] Director: Alpesh Vázquez MD, Phone: [phone] RBC Auto (Bld) [#/Vol]Ordere d By: Carlos Cavazos on 07-13-2023 RBC (Bld) [#/Vol] 4.90 10*6/uL 4.6-6.[address] [facility] Serum or plasma calcium oral urement (mass/volume)Ordered By: Carlos Cavazos on 07-13-2023 Calcium [Mass/Vol] 9.1 mg/dL 8.5-10.1 [facility] Serum or plasma creatinine m easurement (mass/volume)Ordered By: Carlos Cavazos on 07-13-2023 Creatinine [Mass/Vol] 0.82 mg/dL 0.70-1.30 [facility] Comment on above: The validity of [...] PT Coag (PPP) [Time] 26.3 s 11.7-14.9 [facility] - CoagulationOrde red By: Carlos Cavazos on 07-02-2023 INR Coag (Bld) [Relative time] 1.5 {INR} [facility] PT Coag (PPP) [Time] 18.5 s 11.7-14.9 [facility] - CoagulationOrde red By: Carlos Cavazos on 06-28-2023 INR Coag (Bld) [Relative time] 1.7 {INR} [facility] PT Coag (PPP) [Time] 20.5 s 11.7-14.9 [facility] 36on 06-25-2023 36 [facility] tuary called in stating appt scheduled 07/10/23 Guy has to be made further out, pt being transported by cot. Changed appt to 08/13/23 per [facility] only avail time for transport, first avail with DR Buck at 10:00 AM. [facility] - CoagulationOrde red By: Carlos Cavazos on 06-25-2023 INR Coag (Bld) [Relative time] 3.8 {INR} [facility] PT Coag (PPP) [Time] 38.2 s 11.7-14.9 [facility] - CoagulationOrde red By: Carlos Cavazos on 06-21-2023 INR Coag (Bld) [Relative time] 3.2 {INR} [facility] PT Coag (PPP) [Time] 32.9 s 11.7-14.9 [facility] No Panel InformationOrdered By: Carlos Cavazos on 06-13-2023 Valproic Acid (Depakene) Level < 3 ug/mL 50-100 [facility] - CoagulationOrde red By: Carlos Cavazos on 06-06-2023 PT Coag (PPP) [Time] 30.5 s 11.7-14.9 [facility] Platelet poor plasma interna tional normalized ratio (INR)Ordered By: Carlos Cavazos on 06-06-2023 INR Coag (PPP) [Relative time] 2.9 {INR} [facility] International normalized rat io (INR) calculationOrdered By: Carlos Cavazos on 05-23-2023 INR Coag (PPP) [Relative time] 2.6 {INR} [facility] - CoagulationOrde red By: Carlos Cavazos on 05-23-2023 PT Coag (PPP) [Time] 27.7 s 11.7-14.9 [facility] - CoagulationOrde red By: Carlos Cavazos on 05-09-2023 PT Coag (PPP) [Time] 24.1 s 11.7-14.9 [facility] Whole blood international no rmalized ratio (INR)Ordered By: Carlos Cavazos on 01-03-2024 INR Coag (Bld) [Relative time] 2.1 {INR} [facility] - CoagulationOrde red By: Carlos Cavazos on 04-23-2023 PT Coag (PPP) [Time] 26.4 s 11.7-14.9 [facility] Whole blood international no rmalized ratio (INR)Ordered By: Carlos Cavazos on 04-23-2023 INR Coag (Bld) [Relative time] 2.4 {INR} [facility] INR in Blood by Coagulation assayOrdered By: Carlos Cavazos on 04-09-2023 INR Coag (Bld) [Relative time] 2.1 {INR} [facility] - CoagulationOrde red By: Carlos Cavazos on 04-09-2023 PT Coag (PPP) [Time] 23.9 s 11.7-14.9 [facility] INR in Blood by Coagulation assayOrdered By: Carlos Cavazos on 04-02-2023 INR Coag (Bld) [Relative time] 2.2 {INR} [facility] - CoagulationOrde red By: Carlos Cavazos on 04-02-2023 PT Coag (PPP) [Time] 24.5 s 11.7-14.9 [facility] INR in Blood by Coagulation assayOrdered By: Carlos Cavazos on 03-26-2023 INR Coag (Bld) [Relative time] 1.7 {INR} [facility] - CoagulationOrde red By: Carlos Cavazos on 03-26-2023 PT Coag (PPP) [Time] 19.9 s 11.7-14.9 [facility] INR in Blood by Coagulation assayOrdered By: Carlos Cavazos on 03-22-2023 INR Coag (Bld) [Relative time] 1.3 {INR} [facility] - CoagulationOrde red By: Carlos Cavazos on 03-22-2023 PT Coag (PPP) [Time] 16.4 s 11.7-14.9 [facility] INR in Blood by Coagulation assayOrdered By: Carlos Cavazos on 03-08-2023 INR Coag (Bld) [Relative time] 2.0 {INR} [facility] - CoagulationOrde red By: Carlos Cavazos on 03-08-2023 PT Coag (PPP) [Time] 22.5 s 11.7-14.9 [facility] - CoagulationOrde red By: Carlos Cavazos on 02-22-2023 INR Coag (Bld) [Relative time] 2.2 {INR} [facility] Comment on above: Critical Value > 4.0 Whole blood prothrombin time Ordered By: Carlos Cavazos on 02-22-2023 PT Coag (Bld) [Time] 24.0 s 11.7-14.9 [facility] INR in Blood by Coagulation assayOrdered By: Cliff Bruner on 02-15-2023 INR Coag (Bld) [Relative time] 2.0 {INR} [facility] - CoagulationOrde red By: Cliff Bruner on 02-15-2023 PT Coag (PPP) [Time] 22.8 s 11.7-14.9 [facility] INR in Blood by Coagulation assayOrdered By: Carlos Cavazos on 02-08-2023 INR Coag (Bld) [Relative time] 2.1 {INR} [facility] - CoagulationOrde red By: Carlos Cavazos on 02-08-2023 PT Coag (PPP) [Time] 23.5 s 11.7-14.9 [facility] INR in Blood by Coagulation assayOrdered By: Carlos Cavazos on 01-31-2023 INR Coag (Bld) [Relative time] 2.0 {INR} [facility] - CoagulationOrde red By: Carlos Cavazos on 01-31-2023 PT Coag (PPP) [Time] 22.4 s 11.7-14.9 [facility] - CoagulationOrde red By: Carlos Cavazos on 01-29-2023 INR Coag (Bld) [Relative time] 1.8 {INR} [facility] Comment on above: Critical Value > 4.0 Whole blood prothrombin time Ordered By: Carlos Cavazos on 01-29-2023 PT Coag (Bld) [Time] 19.9 s 11.7-14.9 [facility] INR in Blood by Coagulation assayOrdered By: Carlos Cavazos on 01-26-2023 INR Coag (Bld) [Relative time] 1.5 {INR} [facility] - CoagulationOrde red By: Carlos Cavazos on 01-26-2023 PT Coag (PPP) [Time] 18.3 s 11.7-14.9 [facility] INR in Blood by Coagulation assayOrdered By: Carlos Cavazos on 01-24-2023 INR Coag (Bld) [Relative time] 1.3 {INR} [facility] - CoagulationOrde red By: Carlos Cavazos on 01-24-2023 PT Coag (PPP) [Time] 16.2 s 11.7-14.9 [facility] Basophil percentageOrdered B y: Carlos Cavazos on 01-22-2023 Basophil percentage 0 SEEN /hpf 0-5 [facility] Bilirubin Test strip Ql (U)O rdered [...] 01-22-2023 Mucus Ql (Urine sed) 1+ /hpf [facility] Nitrite Test strip Ql (U)Ord ered [...] 01-22-2023 Urobilinogen Ql (U) Normal mg/dl Normal [facility] INR in Blood by Coagulation assayOrdered By: Carlos Cavazos on 01-10-2023 INR Coag (Bld) [Relative time] 2.0 {INR} [facility] - CoagulationOrde red By: Carlos Cavazos on 01-10-2023 PT Coag (PPP) [Time] 22.6 s 11.7-14.9 [facility] INR in Blood by Coagulation assayOrdered By: Carlos Cavazos on 12-27-2022 INR Coag (Bld) [Relative time] 2.1 {INR} [facility] - CoagulationOrde red By: Carlos Cavazos on 12-27-2022 PT Coag (PPP) [Time] 24.1 s 11.7-14.9 [facility] INR in Blood by Coagulation assayOrdered By: Carlos Cavazos on 12-21-2022 INR Coag (Bld) [Relative time] 2.4 {INR} [facility] - CoagulationOrde red By: Carlos Cavazos on 12-21-2022 PT Coag (PPP) [Time] 26.7 s 11.7-14.9 [facility] - CoagulationOrde red By: Carlos Cavazos on 12-14-2022 INR Coag (Bld) [Relative time] 2.3 {INR} [facility] Comment on above: Critical Value > 4.0 Whole blood prothrombin time Ordered By: Carlos Cavazos on 12-14-2022 PT Coag (Bld) [Time] 25.2 s 11.7-14.9 [facility] - CoagulationOrde red By: Carlos Cavazos on 12-07-2022 INR Coag (Bld) [Relative time] 2.5 {INR} [facility] Comment on above: Critical Value > 4.0 Whole blood prothrombin time Ordered By: Carlos Cavazos on 12-07-2022 PT Coag (Bld) [Time] 26.9 s 11.7-14.9 [facility] Amorphous sediment detection in urine sediment by light microscopyOrdered By: Carlos Cavazos on 11-24-2022 Amorphous sediment LM Ql (Urine sed) 1+ [facility] Basophil percentageOrdered B y: Carlos Cavazos on 11-24-2022 Basophil percentage 0 SEEN /hpf 0-5 [facility] Bilirubin [Mass/Vol] 0.30 mg/dL 0.20-1.00 [facility] Comment on above: For patients on eltr ombopag therapy, use of Dimension [place] TBIL is not recommended. Chloride [Moles/Vol] 107 mmol/L 98-107 [facility] Glucose [Mass/Vol] 95 mg/dL 74-106 [facility] Potassium [Moles/Vol] 4.2 mmol/L 3.5-5.1 [facility] Protein [Mass/Vol] 6.9 g/dL 6.4-8.2 [facility] Sodium [Moles/Vol] 138 mmol/L 136-145 [facility] WBC (Bld) [#/Vol] 10.4 10*3/uL 4.4-11.[address] [facility] Bilirubin Test strip Ql (U)O rdered By: Carlos Cavazos on 11-24-2022 Bilirubin Ql (U) Negative Negative [facility] Blood erythrocytes count (nu mber/volume)Ordered By: Carlos Cavazos on 11-24-2022 RBC (Bld) [#/Vol] 4.44 10*6/uL 4.6-6.[address] [facility] Blood hemoglobin measurement (mass/volume)Ordered By: [...] 11-24-2022 MCHC (RBC) [Mass/Vol] 31.4 g/dL 32-36 [facility] Mucus LM Ql (Urine sed)Order ed By: Carlos Cavazos on 11-24-2022 Mucus Ql (Urine sed) 0 SEEN /hpf [facility] Nitrite Test strip Ql (U)Ord ered [...] on 11-24-2022 Albumin [Mass/Vol] 2.9 g/dL 3.2-5.0 [facility] Serum or plasma albumin/glob ulin mass ratioOrdered By: Carlos Cavazos on 11-24-2022 Albumin/Globulin [Mass ratio] 0.7 {ratio} 0.9-2.4 [facility] Serum or plasma calcium oral urement (mass/volume)Ordered By: Carlos Cavazos on 11-24-2022 Calcium [Mass/Vol] 8.7 mg/dL 8.5-10.1 [facility] Serum or plasma creatinine m easurement (mass/volume)Ordered By: Carlos Cavazos on 11-24-2022 Creatinine [Mass/Vol] 0.83 mg/dL 0.70-1.30 [facility] Comment on above: The validity of [...] [facility] Urine blood detectionOrdered By: Carlos Cvaazos on 11-24-2022 RBC Ql (U) Negative Negative [...] 11-24-2022 Urobilinogen Ql (U) Normal mg/dl Normal [facility] - CoagulationOrde red By: Carlos Cavazos on 11-23-2022 INR Coag (Bld) [Relative time] 2.2 {INR} [facility] Comment on above: Critical Value > 4.0 Whole blood prothrombin time Ordered By: Carlos Cavazos on 11-23-2022 PT Coag (Bld) [Time] 24.5 s 11.7-14.9 [facility] Basophil percentageOrdered B y: Carlos Cavazos on 11-22-2022 Chloride [Moles/Vol] 105 mmol/L 98-107 [facility] Glucose [Mass/Vol] 91 mg/dL 74-106 [facility] Potassium [Moles/Vol] 4.1 mmol/L 3.5-5.1 [facility] Sodium [Moles/Vol] 138 mmol/L 136-145 [facility] WBC (Bld) [#/Vol] 12.0 10*3/uL 4.4-11.[address] [facility] Blood erythrocytes count (nu mber/volume)Ordered By: Carlos Cavazos on 11-22-2022 RBC (Bld) [#/Vol] 4.65 10*6/uL 4.6-6.[address] [facility] Blood hemoglobin measurement (mass/volume)Ordered By: [...] 11-22-2022 MCHC (RBC) [Mass/Vol] 31.0 g/dL 32-36 [facility] No Panel InformationOrdered By: Carlos Cavazos [...] on 11-22-2022 Calcium [Mass/Vol] 8.7 mg/dL 8.5-10.1 [facility] Serum or plasma creatinine m easurement (mass/volume)Ordered By: Carlos Cavazos on 11-22-2022 Creatinine [Mass/Vol] 0.85 mg/dL 0.70-1.30 [facility] Comment on above: The validity of the calculated GFR & GFRAA in patients over 70 years has not been determined. Clinical correlation is essential. Serum or plasma urea nitroge n measurement (mass/volume)Ordered By: Carlos Cavazos on 11-22-2022 Urea nitrogen [Mass/Vol] 20 mg/dL 11-21 [facility] Thin prep Papanicolaou smear with manual screeningOrdered By: Carlos Cavazos on 11-22-2022 Thin prep Papanicolaou smear with manual screening 8 09-18 [facility] - CoagulationOrde red By: Carlos Cavazos on 11-09-2022 INR Coag (Bld) [Relative time] 2.1 {INR} [facility] Comment on above: Critical Value > 4.0 Whole blood prothrombin time Ordered By: Carlos Cavazos on 11-09-2022 PT Coag (Bld) [Time] 22.6 s 11.7-14.9 [facility] - CoagulationOrde red By: Carlos Cavazos on 10-26-2022 INR Coag (Bld) [Relative time] 2.6 {INR} [facility] Comment on above: Critical Value > 4.0 Whole blood prothrombin time Ordered By: Carlos Cavazos on 10-26-2022 PT Coag (Bld) [Time] 28.5 s 11.7-14.9 [facility] - CoagulationOrde red By: Carlos Cavazos on 10-12-2022 INR Coag (Bld) [Relative time] 2.4 {INR} [facility] Comment on above: Critical Value > 4.0 Whole blood prothrombin time Ordered By: Carlos Cavazos on 10-12-2022 PT Coag (Bld) [Time] 26.4 s 11.7-14.9 [facility] - CoagulationOrde red By: Carlos Cavazos on 10-05-2022 INR Coag (Bld) [Relative time] 2.6 {INR} [facility] Comment on above: Critical Value > 4.0 Whole blood prothrombin time Ordered By: Carlos Cavazos on 10-05-2022 PT Coag (Bld) [Time] 28.0 s 11.7-14.9 [facility] - CoagulationOrde red By: Carlos Cavazos on 09-28-2022 INR Coag (Bld) [Relative time] 2.7 {INR} [facility] Comment on above: Critical Value > 4.0 Whole blood prothrombin time Ordered By: Carlos Cavazos on 09-28-2022 PT Coag (Bld) [Time] 28.9 s 11.7-14.9 [facility] - CoagulationOrde red By: Carlos Cavazos on 09-14-2022 INR Coag (Bld) [Relative time] 2.5 {INR} [facility] Comment on above: Critical Value > 4.0 Whole blood prothrombin time Ordered By: Carlos Cavazos on 09-14-2022 PT Coag (Bld) [Time] 27.4 s 11.7-14.9 [facility] - CoagulationOrde red By: Carlos Cavazos on 08-31-2022 INR Coag (Bld) [Relative time] 2.3 {INR} [facility] Comment on above: Critical Value > 4.0 Whole blood prothrombin time Ordered By: Carlos Cavazos on 08-31-2022 PT Coag (Bld) [Time] 25.4 s 11.7-14.9 [facility] Basophil percentageOrdered B y: Carlos Cavazos on 08-23-2022 Chloride [Moles/Vol] 108 mmol/L 98-107 [facility] Glucose [Mass/Vol] 86 mg/dL 74-106 [facility] Potassium [Moles/Vol] 4.3 mmol/L 3.5-5.1 [facility] Sodium [Moles/Vol] 136 mmol/L 136-145 [facility] WBC (Bld) [#/Vol] 10.0 10*3/uL 4.4-11.[address] [facility] Blood erythrocytes count (nu mber/volume)Ordered By: Carlos Cavazos on 08-23-2022 RBC (Bld) [#/Vol] 4.77 10*6/uL 4.6-6.[address] [facility] Blood hemoglobin measurement (mass/volume)Ordered By: [...] 08-23-2022 MCHC (RBC) [Mass/Vol] 31.1 g/dL 32-36 [facility] No Panel InformationOrdered By: Carlos Cavazos [...] on 08-23-2022 Calcium [Mass/Vol] 9.1 mg/dL 8.5-10.1 [facility] Serum or plasma creatinine m easurement (mass/volume)Ordered By: Carlos Cavazos on 08-23-2022 Creatinine [Mass/Vol] 0.74 mg/dL 0.70-1.30 [facility] Comment on above: The validity of [...] PT Coag (Bld) [Time] 29.6 s 11.7-14.9 [facility] - CoagulationOrde red By: Carlos Cavazos on 08-14-2022 INR Coag (Bld) [Relative time] 3.9 {INR} [facility] Comment on above: Critical Value > 4.0 Whole blood prothrombin time Ordered By: Carlos Cavazos on 08-14-2022 PT Coag (Bld) [Time] 40.6 s 11.7-14.9 [facility] - CoagulationOrde red By: Carlos Cavazos on 07-31-2022 INR Coag (Bld) [Relative time] 2.5 {INR} [facility] Comment on above: Critical Value > 4.0 Whole blood prothrombin time Ordered By: Carlos Cavazos on 07-31-2022 PT Coag (Bld) [Time] 26.8 s 11.7-14.9 [facility] INR in Blood by Coagulation assayOrdered By: Carlos Cavazos on 07-24-2022 INR Coag (Bld) [Relative time] 2.3 {INR} [facility] - CoagulationOrde red By: Carlos Cavazos on 07-24-2022 PT Coag (PPP) [Time] 24.7 s 11.7-14.9 [facility] - CoagulationOrde red By: Carlos Cavazos on 07-20-2022 INR Coag (Bld) [Relative time] 1.9 {INR} [facility] Comment on above: Critical Value > 4.0 Whole blood prothrombin time Ordered By: Carlos Cavazos on 07-20-2022 PT Coag (Bld) [Time] 20.6 s 11.7-14.9 [facility] - CoagulationOrde red By: Carlos Cavazos on 07-17-2022 INR Coag (Bld) [Relative time] 1.3 {INR} [facility] Comment on above: Critical Value > 4.0 Whole blood prothrombin time Ordered By: Carlos Cavazos on 07-17-2022 PT Coag (Bld) [Time] 15.9 s 11.7-14.9 [facility] Basophil percentageOrdered B y: Carlos Cavazos on 07-11-2022 Chloride [Moles/Vol] 105 mmol/L 98-107 [facility] Glucose [Mass/Vol] 97 mg/dL 74-106 [facility] Potassium [Moles/Vol] 3.9 mmol/L 3.5-5.1 [facility] Sodium [Moles/Vol] 140 mmol/L 136-145 [facility] WBC (Bld) [#/Vol] 9.4 10*3/uL 4.4-11.0 [facility] Blood erythrocytes count (nu mber/volume)Ordered By: Carlos Cavazos on 07-11-2022 RBC (Bld) [#/Vol] 4.66 10*6/uL 4.6-6.[address] [facility] Blood hemoglobin measurement (mass/volume)Ordered By: [...] 07-11-2022 MCHC (RBC) [Mass/Vol] 30.8 g/dL 32-36 [facility] No Panel InformationOrdered By: Carlos Cavazos [...] on 07-11-2022 Calcium [Mass/Vol] 9.2 mg/dL 8.5-10.1 [facility] Serum or plasma creatinine m easurement (mass/volume)Ordered By: Carlos Cavazos on 07-11-2022 Creatinine [Mass/Vol] 0.78 mg/dL 0.70-1.30 [facility] Comment on above: The validity of the calculated GFR & GFRAA in patients over 70 years has not been determined. Clinical correlation is essential. Serum or plasma urea nitroge n measurement (mass/volume)Ordered By: Carlos Cavazos on 07-11-2022 Urea nitrogen [Mass/Vol] 18 mg/dL 7-18 [facility] [...] PT Coag (Bld) [Time] 21.0 s 11.7-14.9 [facility] - CoagulationOrde red By: Carlos Cavazos on 07-03-2022 INR Coag (Bld) [Relative time] 1.9 {INR} [facility] Comment on above: Critical Value > 4.0 Whole blood prothrombin time Ordered By: Carlos Cavazos on 07-03-2022 PT Coag (Bld) [Time] 22.7 s 11.7-14.9 [facility] INR in Blood by Coagulation assayOrdered By: Carlos Cavazos on 06-27-2022 INR Coag (Bld) [Relative time] 2.9 {INR} [facility] - CoagulationOrde red By: Carlos Cavazos on 06-27-2022 PT Coag (PPP) [Time] 29.9 s 11.7-14.9 [facility] - CoagulationOrde red By: Carlos Cavazos on 06-13-2022 INR Coag (Bld) [Relative time] 2.1 {INR} [facility] Comment on above: Critical Value > 4.0 Whole blood prothrombin time Ordered By: Carlos Cavazos on 06-13-2022 PT Coag (Bld) [Time] 24.4 s 11.7-14.9 [facility] - CoagulationOrde red By: Carlos Cavazos on 06-06-2022 INR Coag (Bld) [Relative time] 1.5 {INR} [facility] Comment on above: Critical Value > 4.0 Whole blood prothrombin time Ordered By: Carlos Cavazos on 06-06-2022 PT Coag (Bld) [Time] 18.4 s 11.7-14.9 [facility] Basophil percentageOrdered B y: Carlos Cavazos on 05-30-2022 Chloride [Moles/Vol] 105 mmol/L 98-107 [facility] Glucose [Mass/Vol] 95 mg/dL 74-106 [facility] Potassium [Moles/Vol] 3.9 mmol/L 3.5-5.1 [facility] Sodium [Moles/Vol] 140 mmol/L 136-145 [facility] WBC (Bld) [#/Vol] 7.6 10*3/uL 4.4-11.0 [facility] Blood erythrocytes count (nu mber/volume)Ordered By: Carlos Cavazos on 05-30-2022 RBC (Bld) [#/Vol] 4.79 10*6/uL 4.6-6.[address] [facility] Blood hemoglobin measurement (mass/volume)Ordered By: [...] PT Coag (PPP) [Time] 21.6 s 11.7-14.9 [facility] - Hematology and Cell countsOrdered By: Carlos Cavazos on 05-30-2022 Erythrocyte distribution width (RBC) [Entitic vol] 48.8 fL 35.1-43.9 [facility] Erythrocyte distribution width (RBC) [Ratio] 16.2 % 11.6-14.6 [facility] MCH (RBC) [Entitic mass] 25.3 pg 27.0-32.0 [facility] MCHC Auto (RBC) [Mass/Vol]Or dered By: Carlos Cavazos on 05-30-2022 MCHC (RBC) [Mass/Vol] 30.6 g/dL 32-36 [facility] No Panel InformationOrdered By: Carlos Cavazos [...] on 05-30-2022 Calcium [Mass/Vol] 9.1 mg/dL 8.5-10.1 [facility] Serum or plasma creatinine m easurement (mass/volume)Ordered By: Carlos Cavazos on 05-30-2022 Creatinine [Mass/Vol] 0.75 mg/dL 0.70-1.30 [facility] Comment on above: The validity of [...] PT Coag (Bld) [Time] 29.9 s 11.7-14.9 [facility] - CoagulationOrde red By: Carlos Cavazos on 05-02-2022 INR Coag (Bld) [Relative time] 2.0 {INR} [facility] Comment on above: Critical Value > 4.0 Whole blood prothrombin time Ordered By: Carlos Cavazos on 05-02-2022 PT Coag (Bld) [Time] 23.2 s 11.7-14.9 [facility] - CoagulationOrde red By: Carlos Cavazos on 04-27-2022 INR Coag (Bld) [Relative time] 2.7 {INR} [facility] Comment on above: Critical Value > 4.0 Whole blood prothrombin time Ordered By: Carlos Cavazos on 04-27-2022 PT Coag (Bld) [Time] 31.1 s 11.7-14.9 [facility] - CoagulationOrde red By: Carlos Cavazos on 04-26-2022 INR Coag (Bld) [Relative time] 2.8 {INR} [facility] Comment on above: Critical Value > 4.0 Whole blood prothrombin time Ordered By: Carlos Cavazos on 04-26-2022 PT Coag (Bld) [Time] 32.6 s 11.7-14.9 [facility] - CoagulationOrde red By: Carlos Cavazos on 04-11-2022 INR Coag (Bld) [Relative time] 2.9 {INR} [facility] Comment on above: Critical Value > 4.0 Whole blood prothrombin time Ordered By: Carlos Cavazos on 04-11-2022 PT Coag (Bld) [Time] 32.8 s 11.7-14.9 [facility] - CoagulationOrde red By: Carlos Cavazos on 03-28-2022 INR Coag (Bld) [Relative time] 2.1 {INR} [facility] Comment on above: Critical Value > 4.0 Whole blood prothrombin time Ordered By: Carlos Cavazos on 03-28-2022 PT Coag (Bld) [Time] 24.8 s 11.7-14.9 [facility] - CoagulationOrde red By: Carlos Cavazos on 03-23-2022 INR Coag (Bld) [Relative time] 1.7 {INR} [facility] Comment on above: Critical Value > 4.0 Whole blood prothrombin time Ordered By: Carlos Cavazos on 03-23-2022 PT Coag (Bld) [Time] 20.9 s 11.7-14.9 [facility] - CoagulationOrde red By: Carlos Cavazos on 03-16-2022 INR Coag (Bld) [Relative time] 1.7 {INR} [facility] Comment on above: Critical Value > 4.0 Whole blood prothrombin time Ordered By: Carlos Cavazos on 03-16-2022 PT Coag (Bld) [Time] 19.9 s 11.7-14.9 [facility] - CoagulationOrde red By: Carlos Cavazos on 03-09-2022 INR Coag (Bld) [Relative time] 1.8 {INR} [facility] Comment on above: Critical Value > 4.0 Whole blood prothrombin time Ordered By: Carlos Cavazos on 03-09-2022 PT Coag (Bld) [Time] 21.9 s 11.7-14.9 [facility] - CoagulationOrde red By: Carlos Cavazos on 03-06-2022 INR Coag (Bld) [Relative time] 1.7 {INR} [facility] Comment on above: Critical Value > 4.0 Whole blood prothrombin time Ordered By: Carlos Cavazos on 03-06-2022 PT Coag (Bld) [Time] 20.0 s 11.7-14.9 [facility] CBC with Auto Differentialon 03-02-2022 Absolute [...] 10*3/uL [facility] Test Performed by [facility], [address] [place], [place] [address]A CT HEAD WO CONTRASTon 2021 Patient Name: ANDREW SIFUENTES Computed Tomography ACCESSION EXAM DATE/TIME PROCEDURE ORDERING PROVIDER [id number] 03/02/2022 13:[address] Head or Brain w/o [id number] -LANETTE MUNGUIA Contrast CPT code 59570 Reason For Exam (CT Head or Brain [...] tubes (parent active on the left for HAND ENDBAND CUTTER shunting and disconnected on the right). 2. No definite evidence of acute infarction (MRI more sensitive), mass lesion, nor hemorrhage. Report Dictated on --- Final --- Dictated: 03/02/2022 1:35 pm Dictating Physician: MD GUTIERREZ WILLIAM Signed Date and Time: 03/02/2022 1:39 pm Signed by: MD GUTIERREZ WILLIAM Transcribed Date and Time: 03/02/2022 1:35 [facility] Anant Gutierrez MD - 03/02/2022 Patient Name: ANDREW SIFUENTES Computed Tomography ACCESSION EXAM DATE/TIME PROCEDURE ORDERING PROVIDER [id number] 03/02/2022 13:[address] Head or Brain w/o [id number] -LANETTE MUNGUIA Contrast CPT code 90793 Reason For Exam (CT Head or Brain [...] tubes (parent active on the left for HAND ENDBAND CUTTER shunting and disconnected on the right). 2. [...] Tomography ACCESSION EXAM DATE/TIME PROCEDURE ORDERING PROVIDER [id number] 03/02/2022 13:[address] Head or Brain w/o [id number] -LANETTE MUNGUIA Contrast CPT code 35396 Reason For Exam (CT Head or Brain [...] tubes (parent active on the left for HAND ENDBAND CUTTER shunting and disconnected on the right). 2. No definite evidence of acute infarction (MRI more sensitive), mass lesion, nor hemorrhage. Report Dictated on Final Dictated: 03/02/2022 1:35 pm Dictating Physician: MD GUTIERREZ WILLIAM Signed Date and Time: 03/02/2022 1:39 pm Signed by: MD GUTIERREZ WILLIAM Transcribed Date and Time: 03/02/2022 1:35 Normal [facility] Comp Metabolic Panelon 03-02 Calcium [Mass/Vol] 9.1 mg/dL Normal 8.4-10.4 [facility] Comment on above: Performed By: #### H BIMALF PT, CMP3 ####[place] [address] [place] ALP [Catalytic activity/Vol] 128 U/L High 38-126 [facility] Comment on above: Performed By: #### H EMDF PT, CMP3 ####[place] [address] [place] ALT [Catalytic activity/Vol] 12 U/L Normal 0-49 [facility] Comment on above: Result Comment: The ALT test is performed by an updated assay method. Please note that the reference intervals have been changed and are now sex specific. Performed By: #### H BIMALF PT, CMP3 ####[place] [address] [facility], [place] Anion gap [Moles/Vol] 7 mmol/L Normal 3-13 [facility] Comment on above: Performed By: #### H TIERA PT, CMP3 ####[place] [address] [place], [place] AST [Catalytic activity/Vol] 24 U/L Normal 15-46 [facility] Comment on above: Performed By: #### H BIMALF PT, CMP3 ####[place] [address] [place] Bilirubin [Mass/Vol] 0.4 mg/dL Normal 0.2-1.3 [facility] Comment on above: Performed By: #### H EMDF PT, CMP3 ####[place] [address] [facility], [place] CO2 [Moles/Vol] 27 mmol/L Normal 22-30 [facility] Comment on above: Performed By: #### H EMDF PT, CMP3 ####[place] [address] [facility], [place] Glucose [Mass/Vol] 109 mg/dL High 70-100 [facility] Comment on above: Performed By: #### H TIERA PT, CMP3 ####[facility] [place], [place] Protein [Mass/Vol] 8.1 g/dL Normal 6.3-8.2 [facility] Comment on above: Performed By: #### H BIMALF PT, CMP3 ####[place] [address] [place], [place] Urea nitrogen [Mass/Vol] 22 mg/dL High 7-17 [facility] Comment on above: Performed By: #### H TIERA PT, CMP3 ####[place] [address] [place], [place] Creatinine [Mass/Vol] 0.63 mg/dL Normal 0.52-1.25 [facility] Comment on above: Performed By: #### H TIERA PT, CMP3 ####[place] [address] [place], [place] eGFR OTHER > 90.0 Normal >60 [facility] Comment on above: Result Comment: KDIG O [...] tubular creatinine secretion. Performed By: #### H EMDF, PT, CMP3 ####[place] [address] [place], [place] GFR/1.73 sq M.predicted among blacks MDRD (S/P/Bld) [Vol rate/Area] mL/min/{1.73_m2} Normal >60 [facility] Comment on above: Performed By: #### H CHRISTEL MOTT CMP3 ####[place] [address] [place], [place] Albumin [Mass/Vol] 4.1 g/dL Normal 3.5-5.0 [facility] Comment on above: Performed By: #### H CHRISTEL MOTT, CMP3 ####[place] [address] [place], [place] Chloride [Moles/Vol] 106 mmol/L Normal 98-107 [facility] Comment on above: Performed By: #### H CHRISTEL MOTT CMP3 ####[place] [address] [place], [place] Potassium [Moles/Vol] 3.7 mmol/L Normal 3.5-5.1 [facility] Comment on above: Performed By: #### H CHRISTEL MOTT CMP3 ####[place] [address] [place], [place] Sodium [Moles/Vol] 140 mmol/L Normal 135-145 [facility] Comment on above: Performed By: #### H CHRISTEL MOTT CMP3 ####[address] Comprehensive Metabolic Pane kiel 03-02-2022 Albumin [Mass/Vol] 4.1 g/dL 3.5 - 5.0 g/dL [facility] (Bld) [Catalytic activity/Vol] 128 U/L High 38 - 126 U/L [facility] ALT [Catalytic activity/Vol] 12 U/L 0 - 49 U/L [facility] Comment on above: The ALT test is perf ormed by an updated assay method. Please note that the reference intervals have been changed and are now sex specific. Anion gap [Moles/Vol] 7 mmol/L 3 - 13 mmol/L [facility] AST [Catalytic activity/Vol] 24 U/L 15 - 46 U/L [facility] Bilirubin [Mass/Vol] 0.4 mg/dL 0.2 - [...] mg/dL [facility] Test Performed by [facility], [address] [place] [address] LAB [facility] ED Provider Noteon 2 ED Provider Note [facility] EMERGENCY DEPARTMENT ENCOUNTER Pt Name: Andrew Sifuentes Birthdate 1950 Date of evaluation: 03/02/2022 Provider: Lanette Munguia DO CHIEF COMPLAINT Chief Complaint Patient presents with Fall Patient had unwitnessed fall at [facility] landed on butt. Is on thinners, denies LOC, denies head injury has no complaints at this time HISTORY OF PRESENT ILLNESS (Location/Symptom, Timing/Onset, Context/Setting, Quality, Duration, Modifying Factors, Severity) Note limiting factors. I wore a N-95 mask for the entirety of this encounter. Andrew Sifuentes is a 71 y.o. male medical history of hydrocephalus status post HAND ENDBAND CUTTER shunt, history of DVT on Coumadin who presents to the emergency department from the [facility] for evaluation following mechanical fall. Patient rolled out of bed. Unwitnessed. Found down on ground by nursing staff. Nonambulatory at baseline. Patient reports he did not hit his head. Has no acute complaints. Denies any pain or traumatic injury. Per nursing protocol at long-term, sent to emergency department due to unwitnessed [...] Hemorrhoids Hydrocephalus, adult (HCC) Kidney stone Neuropathy HAND ENDBAND CUTTER (ventriculoperitoneal) shunt status SURGICAL HISTORY Past Surgical [...] Does not apply route Duration: 5 years, 2024 LEVETIRACETAM (KEPPRA) 750 MG TABLET Take 1 [...] CONTRAST R (more content not included)... Normal [facility] Hemogram w/ Autodiffon 03-02 Abs Baso Cnt 0.2 10*3/uL Normal 0.0-0.2 [facility] Comment on above: Performed By: #### H EMDF, PT, CMP3 ####[address] [place] [address] Abs Neutrophile Cnt 10.7 10*3/uL High 1.8-7.0 [facility] Comment on above: Performed By: #### H EMDF, PT, CMP3 ####[address] [address] Basophils/100 WBC (Bld) 1.1 % Normal 0.0-2.0 [facility] Comment on above: Performed By: #### H EMDF, PT, CMP3 ####[address] [place] [address] Eosinophils (Bld) [#/Vol] 0.1 10*3/uL Normal 0.0-0.5 [facility] Comment on above: Performed By: #### H EMDF, PT, CMP3 ####[address] [place] [address] Eosinophils/100 WBC (Bld) 0.5 % Low 1.0-6.0 [facility] Comment on above: Performed By: #### H EMDF, PT, CMP3 ####[address] [place] [address] Granulocytes/100 WBC (Bld) 73.9 % Normal 40.0-80.0 [facility] Comment on above: Performed By: #### H EMDF, PT, CMP3 ####[address] [place] [address] Lymphocytes (Bld) [#/Vol] 3.0 10*3/uL Normal 1.0-4.3 [facility] Comment on above: Performed By: #### H EMDF PT, CMP3 ####[address] Lymphocytes/100 WBC (Bld) 20.6 % Normal 20.0-40.0 [facility] Comment on above: Performed By: #### H EMDF PT, CMP3 ####[address] Monocytes (Bld) [#/Vol] 0.6 10*3/uL Normal 0.0-0.8 [facility] Comment on above: Performed By: #### H TIERA PT, CMP3 ####[address] Monocytes/100 WBC (Bld) 3.9 % Normal 2.0-10.0 [facility] Comment on above: Performed By: #### H TIERA PT, CMP3 ####[address] Platelet mean volume (Bld) [Entitic vol] 8.5 fL Normal 7.4-12.4 [facility] Comment on above: Result Comment: MPV is a calculated measurement using platelet volume ratio. Performed By: #### H EMDHeydi PT, CMP3 ####[address] Platelets (Bld) [#/Vol] 411 10*3/uL Normal 140-440 [facility] Comment on above: Performed By: #### H EMDF PT, CMP3 ####[address] Erythrocyte distribution width (RBC) [Ratio] 17.0 % High 11.5-14.5 [facility] Comment on above: Performed By: #### H EMDF PT, CMP3 ####[address] Hematocrit (Bld) [Volume fraction] 37.4 % Low 40.0-52.0 [facility] Comment on above: Performed By: #### H EMDF, PT, CMP3 ####[address] Hemoglobin (Bld) [Mass/Vol] 12.1 g/dL Low 13.0-18.0 [facility] Comment on above: Performed By: #### H EMDF, PT, CMP3 ####[address] MCH (RBC) [Entitic mass] 26.2 pg Normal 26.0-34.0 [facility] Comment on above: Performed By: #### H EMDF, PT, CMP3 ####[address] MCHC 32.3 % Normal 32.0-36.0 [facility] Comment on above: Performed By: #### H EMDF, PT, CMP3 ####[address] MCV (RBC) [Entitic vol] 81.1 fL Normal 80.0-98.0 [facility] Comment on above: Performed By: #### H EMDF, PT, CMP3 ####[address] RBC (Bld) [#/Vol] 4.61 10*6/uL Normal 4.40-5.90 [facility] Comment on above: Performed By: #### H EMDF, PT, CMP3 ####[address] WBC (Bld) [#/Vol] 14.5 10*3/uL High 3.6-10.7 [facility] Comment on above: Performed By: #### H EMDF, PT, CMP3 ####[address] Prothrombin Timeon 2 INR 1.9 High 0.9-1.1 [facility] Comment on above: Result Comment: Harry mmended [...] Performed By: #### H EMDF, PT, CMP3 ####[address] [place] [address] PT Coag (PPP) [Time] 18.9 s High 9.0-12.0 [facility] Comment on above: Result Comment: . Performed By: #### H EMDF, PT, CMP3 ####[facility] [employer] [id number] [place] [address] Protime-INRon 03-02-2022 INR Coag (Bld) [Relative time] 1.9 {INR} High [facility] Comment on above: Recommended Anticoag ulant [...] Interpretation and review of laboratory results Abnormal [facility] PT Coag (PPP) [Time] 18.9 s High 9.0 - 12.0 s [facility] Comment on above: . Test Performed by [facility], [address] [place] [address] [facility] Laboratory - CoagulationOrde red By: Carlos Cavazos on 02-20-2022 INR Coag (Bld) [Relative time] 2.6 {INR} [facility] Comment on above: Critical Value > 4.0 Whole blood prothrombin time Ordered By: Carlos Cavazos on 02-20-2022 PT Coag (Bld) [Time] 30.1 s 11.7-14.9 [facility] Laboratory - CoagulationOrde red By: Carlos Cavazos on 02-13-2022 INR Coag (Bld) [Relative time] 2.3 {INR} [facility] Comment on above: Critical Value > 4.0 Whole blood prothrombin time Ordered By: Carlos Cavazos on 02-13-2022 PT Coag (Bld) [Time] 26.7 s 11.7-14.9 [facility] Laboratory - CoagulationOrde red By: Carlos Cavazos on 02-06-2022 INR Coag (Bld) [Relative time] 2.3 {INR} [facility] Comment on above: Critical Value > 4.0 Whole blood prothrombin time Ordered By: Carlos Cavazos on 02-06-2022 PT Coag (Bld) [Time] 26.6 s 11.7-14.9 [facility] Laboratory - Coagulationon 0 01-30-2022 INR Coag (Bld) [Relative time] 1.7 {INR} [facility] Work Phone: Comment on above: Critical Value > 4.0 Whole blood prothrombin time on 01-30-2022 PT Coag (Bld) [Time] 20.1 s 11.7-14.9 [facility] Work Phone: Laboratory - Coagulationon 0 01-26-2022 INR Coag (Bld) [Relative time] 1.8 {INR} [facility] Work Phone: Comment on above: Critical Value > 4.0 Whole blood prothrombin time on 01-26-2022 PT Coag (Bld) [Time] 21.8 s 11.7-14.9 [facility] Work Phone: Laboratory - Coagulationon 0 01-19-2022 INR Coag (Bld) [Relative time] 2.2 {INR} [facility] Work Phone: Comment on above: Critical Value > 4.0 Whole blood prothrombin time on 01-19-2022 PT Coag (Bld) [Time] 25.7 s 11.7-14.9 [facility] Work Phone: INR in Blood by Coagulation assayon 01-10-2022 INR Coag (Bld) [Relative time] 1.8 {INR} [facility] Work Phone: Laboratory - Coagulationon 0 01-10-2022 PT Coag (PPP) [Time] 20.9 s 11.7-14.9 [facility] Work Phone: Basophil percentageon 2021 Chloride [Moles/Vol] 107 mmol/L 98-107 [facility] Work Phone: Glucose [Mass/Vol] 82 mg/dL 74-106 [facility] Work Phone: Potassium [Moles/Vol] 3.4 mmol/L 3.5-5.1 [facility] Work Phone: Sodium [Moles/Vol] 143 mmol/L 136-145 [facility] Work Phone: WBC (Bld) [#/Vol] 10.4 10*3/uL 4.4-11.[address] [facility] Work Phone: Blood erythrocytes count (nu mber/volume)on 01-05-2022 RBC (Bld) [#/Vol] 4.27 10*6/uL 4.6-6.[address] [facility] Work Phone: Blood hemoglobin measurement [...] 01-05-2022 MCHC (RBC) [Mass/Vol] 30.9 g/dL 32-36 [facility] Work Phone: No Panel Informationon 01-05 [...] (mass/volume)on 01-05-2022 Calcium [Mass/Vol] 8.8 mg/dL 8.5-10.1 [facility] Work Phone: Serum or plasma creatinine m easurement (mass/volume)on 01-05-2022 Creatinine [Mass/Vol] 0.75 mg/dL 0.70-1.30 [facility] Work Phone: Comment on above: The [...] PT Coag (Bld) [Time] 23.7 s 11.7-14.9 [facility] Work Phone: Basophil percentageon 2021 Chloride [Moles/Vol] 106 mmol/L 98-107 [facility] Work Phone: Glucose [Mass/Vol] 91 mg/dL 74-106 [facility] Work Phone: Potassium [Moles/Vol] 3.4 mmol/L 3.5-5.1 [facility] Work Phone: Sodium [Moles/Vol] 141 mmol/L 136-145 [facility] Work Phone: WBC (Bld) [#/Vol] 10.2 10*3/uL 4.4-11.[address] [facility] Work Phone: Blood erythrocytes count (nu mber/volume)on 12-28-2021 RBC (Bld) [#/Vol] 4.22 10*6/uL 4.6-6.[address] [facility] Work Phone: Blood hemoglobin measurement [...] 12-28-2021 MCHC (RBC) [Mass/Vol] 32.1 g/dL 32-36 [facility] Work Phone: No Panel Informationon 12-28 [...] (mass/volume)on 12-28-2021 Calcium [Mass/Vol] 8.6 mg/dL 8.5-10.1 [facility] r [facility] Work Phone: Serum or plasma creatinine m easurement (mass/volume)on 12-28-2021 Creatinine [Mass/Vol] 0.59 mg/dL 0.70-1.[address] [facility] Work Phone: Comment on above: The validity [...] F No growth at 5 days. Normal [facility] [employer] Comment on above: Performed By: #### C /BLD #### [employer] [address] [place] [id number] Laboratory - Coagulationon 0 12-26-2021 INR Coag (Bld) [Relative time] 1.7 {INR} [facility] Work Phone: Comment on above: Critical Value > 4.0 Whole blood prothrombin time on 12-26-2021 PT Coag (Bld) [Time] 20.8 s 11.7-14.9 [facility] Work Phone: Basic Metabolic Panelon 12-05 Calcium [Mass/Vol] 8.8 mg/dL Normal 8.4-10.4 [facility] Comment on above: Performed By: #### C RP2, ESR, HEMDF, BMP3 ####[facility] [employer] [id number] [place], [place] Anion gap [Moles/Vol] 6 mmol/L Normal 3-13 [facility] Comment on above: Performed By: #### C RP2, ESR, HEMDF, BMP3 ####[facility] [employer] [id number] [place], [place] CO2 [Moles/Vol] 27 mmol/L Normal 22-30 [facility] Comment on above: Performed By: #### C RP2, ESR, HEMDF, BMP3 ####[facility] [employer] [id number] [place], [place] Glucose [Mass/Vol] 100 mg/dL Normal 70-100 [facility] Comment on above: Performed By: #### C RP2, ESR, HEMDF, BMP3 ####[address] [place], [place] Urea nitrogen [Mass/Vol] 18 mg/dL High 7-17 [facility] Comment on above: Performed By: #### C RP2, ESR, HEMDF, BMP3 ####[facility] [employer] [id number] [place], [place] Creatinine [Mass/Vol] 0.73 mg/dL Normal 0.52-1.25 [facility] Comment on above: Performed By: #### C RP2, ESR, HEMDF, BMP3 ####[facility] [employer] [id number] [place], [place] eGFR OTHER > 90.0 Normal >60 [facility] Comment on above: Result Comment: KDIG O [...] By: #### C RP2, ESR, HEMDF, BMP3 ####[address] [place], [place] GFR/1.73 sq M.predicted among blacks MDRD (S/P/Bld) [Vol rate/Area] mL/min/{1.73_m2} Normal >60 [facility] Comment on above: Performed By: #### C RP2, ESR, HEMDF, BMP3 ####[address] [place], [place] Potassium [Moles/Vol] 3.7 mmol/L Normal 3.5-5.1 [facility] Comment on above: Performed By: #### C RP2, ESR, HEMDF, BMP3 ####[address] Chloride [Moles/Vol] 106 mmol/L Normal 98-107 [facility] Comment on above: Performed By: #### C RP2, ESR, HEMDF, BMP3 ####[address] [place], [place] Sodium [Moles/Vol] 139 mmol/L Normal 135-145 [facility] Comment on above: Performed By: #### C RP2, ESR, HEMDF, BMP3 ####[address] [place], [place] Anion gap [Moles/Vol] 6 mmol/L 3 - 13 mmol/L [facility] Calcium [Mass/Vol] 8.8 mg/dL 8.4 - 10. 4 mg/dL [facility] Chloride [Moles/Vol] 106 mmol/L 98 - 10 7 mmol/L [facility] CO2 [Moles/Vol] 27 mmol/L 22 - 30 mmol/L [facility] Creatinine [Mass/Vol] 0.73 mg/dL 0.52 - [...] Work Phone: Chloride [Moles/Vol] 106 mmol/L 98-107 [facility] Work Phone: [phone] Glucose [Mass/Vol] 93 mg/dL 74-106 [facility] Work Phone: Potassium [Moles/Vol] 3.5 mmol/L 3.5-5.[address] [facility] Work Phone: Sodium [Moles/Vol] 140 mmol/L 136-145 [facility] Work Phone: WBC (Bld) [#/Vol] 9.6 10*3/uL 4.4-11.0 [facility] Work Phone: Bilirubin Test strip Ql (U)o n 12-22-2021 Bilirubin Ql (U) Negative Negative [facility] Work Phone: Blood erythrocytes count (nu mber/volume)on 12-22-2021 RBC (Bld) [#/Vol] 4.34 10*6/uL 4.6-6.[address] [facility] Work Phone: Blood hemoglobin measurement (mass/volume)on 12-22-2021 Hemoglobin (Bld) [Mass/Vol] 11.5 g/dL 13.0-16.5 [facility] Work Phone: Blood platelet mean volumeon 12-22-2021 Platelet mean volume (Bld) [Entitic vol] 10.8 fL 6.2-12.0 [facility] Work Phone: C-Reactive Proteinon 022 CRP [Mass/Vol] 27.2 mg/L High 0.0-9.9 [facility] Comment on above: Result Comment: . Performed By: #### C RP2, ESR, HEMDF, BMP3 ####[employer] [id number] [place] [address] CRP [Mass/Vol] 27.2 mg/L High 0 - 9.9 mg/L [facility] Comment on above: . CBC with [...] 10*3/uL [facility] Test Performed by [facility], [address] [place] [id number] [place] [address] COVID-19, Flu A/B, and RSV C [facility] 12-22-2021 Influenza A by PCR Not detected [facility] A Influenza B by PCR Not detected [facility] A RSV PCR Not Detected. Expected Result: Not Detected _ Method: Real-time, RT-PCR This assay was developed by [employer] and distributed under an Emergency Use Authorization (EUA) granted by the FDA for the qualitative detection of nucleic acids from SARS-CoV-2, Influenza A, Influenza B, and Respiratory Syncytial Virus. Provider and patient fact sheets can be found at https://www.fda.gov/media /967241/download and https://www.fda.gov/media /152017/download. [facility] SARS-CoV-2 (COVID-19) RNA MEGAN+probe Ql (Unsp spec) Not detected [facility] Test Performed by [facility], [address] [place] [address] LAB [facility] CR Foot Complete 3+ Views [place] 12-22-2021 CR Foot Complete 3+ Views Left Patient Name: ANDREW SIFUENTES Diagnostic Radiology ACCESSION EXAM DATE/TIME PROCEDURE ORDERING PROVIDER [id number] 12/22/2021 00:09 EDT CR Foot Complete 3+ SANDY HIDALGO, HENRY Godoy Views Left CPT code 34324 Reason For Exam (CR Foot Complete 3+ [...] Date and Time: 12/22/2021 0:21 Normal [facility] Calcium oxalate crystals det ection in urine [...] leg for a while. According to EMS long-term staff completed x-ray of the lower extremity and there was concern for osteomyelitis hence transferring patient to the hospital. Patient states this time the wounds on the left lower extremity for extended period of time. He denies fevers or chills. Patient states long-term staff have been taking care of the wound for him. Focused exam: Blood pressure 108/67, pulse 77, temperature 97.9 ?F (36.6 ?C), temperature source Oral, resp. rate 16, height 5' 9" (1.753 m), weight 79.4 kg (175 lb), SpO2 96 %. Hby-kok-lriljiclq in no acute distress. Alert and oriented [...] the dictations but occasionally words are mis-transcribed.) Sahron Olivia MD [employer] Sharon Olivia MD 12/22/21 0305 [facility] ED Provider Note [facility] EMERGENCY DEPT EMERGENCY DEPARTMENT ENCOUNTER Pt Name: Andrew Sifuentes Birthdate 1950 Date of evaluation: 12/21/2021 Provider: SANIA Lou CHIEF COMPLAINT Chief Complaint Patient presents with Osteomyelitis Patient from [facility], facility did xrays on left lower leg and and have concerns for possible osteomyelitis A&Ox2 to self and place, stated year 2022 preside Miss martini HISTORY OF PRESENT ILLNESS (Location/Symptom, Timing/Onset, Context/Setting, Quality,Duration, Modifying Factors, Severity) Note limiting factors. HPI I have seen this patient With supervising physician Does this patient come from an ECF, SNF, Rehab, Mcfp or other Congregate setting: [...] Hemorrhoids Hydrocephalus, adult (HCC) Kidney stone Neuropathy HAND ENDBAND CUTTER (ventriculoperitoneal) shunt status SURGICAL HISTORY Past Surgical [...] use: No Sexual activity: Not Currently SCREENINGS [place] Coma Scale Eye Opening: Spontaneous Best Verbal Response: Confused Best Motor Response: Obeys commands [place] Coma Scale Score: 14 Patient symptoms are [...] Tenderness: (more content not included)... Normal [facility] Hematocrit Auto (Bld) [Volum e fraction]on 12-22-2021 Hematocrit (Bld) [Volume fraction] 36.6 % 40-54 [facility] Work Phone: Hemogram w/ Autodiffon 12-22 Abs Baso Cnt 0.1 10*3/uL Normal 0.0-0.2 [facility] Comment on above: Performed By: #### C RP2, ESR, HEMDF, BMP3 ####[facility] [employer] [id number] [place] [address] Abs Neutrophile Cnt 5.9 10*3/uL Normal 1.8-7.0 [facility] Comment on above: Performed By: #### C RP2, ESR, HEMDF, BMP3 ####[facility] [employer] [id number] [place] [address] Basophils/100 WBC (Bld) 0.7 % Normal 0.0-2.0 [facility] Comment on above: Performed By: #### C RP2, ESR, HEMDF, BMP3 ####[facility] [employer] [id number] [place] [address] Eosinophils (Bld) [#/Vol] 0.2 10*3/uL Normal 0.0-0.5 [facility] Comment on above: Performed By: #### C RP2, ESR, HEMDF, BMP3 ####[facility] [employer] [id number] [place] [address] Eosinophils/100 WBC (Bld) 2.3 % Normal 1.0-6.0 [facility] Comment on above: Performed By: #### C RP2, ESR, HEMDF, BMP3 ####[address] Erythrocyte distribution width (RBC) [Ratio] 17.5 % High 11.5-14.5 [facility] Comment on above: Performed By: #### C RP2, ESR, HEMDF, BMP3 ####[address] Granulocytes/100 WBC (Bld) 57.8 % Normal 40.0-80.0 [facility] Comment on above: Performed By: #### C RP2, ESR, HEMDF, BMP3 ####[address] Hematocrit (Bld) [Volume fraction] 33.3 % Low 40.0-52.0 [facility] Comment on above: Performed By: #### C RP2, ESR, HEMDF, BMP3 ####[address] Hemoglobin (Bld) [Mass/Vol] 11.0 g/dL Low 13.0-18.0 [facility] Comment on above: Performed By: #### C RP2, ESR, HEMDF, BMP3 ####[address] Lymphocytes (Bld) [#/Vol] 3.3 10*3/uL Normal 1.0-4.3 [facility] Comment on above: Performed By: #### C RP2, ESR, HEMDF, BMP3 ####[address] Lymphocytes/100 WBC (Bld) 33.0 % Normal 20.0-40.0 [facility] Comment on above: Performed By: #### C RP2, ESR, HEMDF, BMP3 ####[address] MCH (RBC) [Entitic mass] 26.5 pg Normal 26.0-34.0 [facility] Comment on above: Performed By: #### C RP2, ESR, HEMDF, BMP3 ####[address] [place], [place] MCHC 33.1 % Normal 32.0-36.0 [facility] Comment on above: Performed By: #### C RP2, ESR, HEMDF, BMP3 ####[address] MCV (RBC) [Entitic vol] 80.2 fL Normal 80.0-98.0 [facility] Comment on above: Performed By: #### C RP2, ESR, HEMDF, BMP3 ####[address] [place], [place] Monocytes (Bld) [#/Vol] 0.6 10*3/uL Normal 0.0-0.8 [facility] Comment on above: Performed By: #### C RP2, ESR, HEMDF, BMP3 ####[address] Monocytes/100 WBC (Bld) 6.2 % Normal 2.0-10.0 [facility] Comment on above: Performed By: #### C RP2, ESR, HEMDF, BMP3 ####[address] Platelet mean volume (Bld) [Entitic vol] 8.0 fL Normal 7.4-12.4 [facility] Comment on above: Result Comment: MPV is a calculated measurement using platelet volume ratio. Performed By: #### C RP2, ESR, HEMDF, BMP3 ####[address] [place], [place] Platelets (Bld) [#/Vol] 368 10*3/uL Normal 140-440 [facility] Comment on above: Performed By: #### C RP2, ESR, HEMDF, BMP3 ####[address] RBC (Bld) [#/Vol] 4.15 10*6/uL Low 4.40-5.90 [facility] Comment on above: Performed By: #### C RP2, ESR, HEMDF, BMP3 ####[facility] [place] [address] WBC (Bld) [#/Vol] 10.1 10*3/uL Normal 3.6-10.7 [facility] Comment on above: Performed By: #### C RP2, ESR, HEMDF, BMP3 ####[facility] [place] [address] Ketones Test strip Ql (U)on 12-22-2021 Ketones Ql (U) Negative Negative [facility] [...] 12-22-2021 MCHC (RBC) [Mass/Vol] 31.4 g/dL 32-36 [facility] Work Phone: Mucus LM Ql (Urine sed)on Mucus Ql (Urine sed) 0 SEEN /hpf [facility] Work Phone: Nitrite Test strip Ql [...] laboratory results Abnormal [facility] Test Performed by [address] [address] [facility] Platelets bldon 12-22-2021 Platelets [...] Real-time, RT-PCR This assay was developed by [employer] and distributed under an Emergency Use Authorization (EUA) granted by the FDA for the qualitative detection of nucleic acids from SARS-CoV-2, Influenza A, Influenza B, and Respiratory Syncytial Virus. Provider and patient fact sheets can be found at https://www.fda.gov/media /066159/download and https://www.fda.gov/media /017395/download. Expected Result: Not Detected _ Method: Real-time, RT-PCR This assay was developed by [employer] and distributed under an Emergency Use Authorization (EUA) granted by the FDA for the qualitative detection of nucleic acids from SARS-CoV-2, Influenza A, Influenza B, and Respiratory Syncytial Virus. Provider and patient fact sheets can be found at https://www.fda.gov/media /416629/download and https://www.fda.gov/media /088414/download. Normal [facility] Comment on above: Performed By: #### C VFLR ####[facility] [place] [address], [address] Sed Rateon 12-22-2021 Sed Rate 48 mm/h High 0-10 [facility] Comment on above: Performed By: #### C RP2, ESR, HEMDF, BMP3 ####[facility] [place] [address] Sedimentation Rateon 022 Interpretation and review of laboratory results Abnormal [facility] Rate 48 mm/h High 0 - 10 mm/h [facility] Test Performed by [facility], [facility] [place] [address] [facility] Serum or plasma calcium oral urement (mass/volume)on 12-22-2021 Calcium [Mass/Vol] 8.6 mg/dL 8.5-10.1 [facility] Work Phone: Serum or plasma creatinine m easurement (mass/volume)on 12-22-2021 Creatinine [Mass/Vol] 0.67 mg/dL 0.70-1.30 [facility] Work Phone: Comment on above: The validity of the calculated GFR & GFRAA in patients over 70 years has not been determined. Clinical correlation is essential. Serum or plasma urea nitroge n measurement (mass/volume)on 12-22-2021 Urea nitrogen [Mass/Vol] 15 mg/dL 11-21 [facility] Work Phone: Squamous epithelial [...] 12-22-2021 Urobilinogen Ql (U) Normal mg/dl Normal [facility] Work Phone: XR FOOT LEFT (MIN 3 VIEWS)on 12-22-2021 Patient Name: ANDREW SIFUENTES Diagnostic Radiology ACCESSION EXAM DATE/TIME PROCEDURE ORDERING PROVIDER [id number] 12/22/2021 00:09 EDT CR Foot Complete 3+ SANDY HIDALGO, HENRY Godoy Views Left CPT code 19986 Reason For Exam (CR Foot Complete 3+ [...] osteomyelitis. 3. No fracture. Report Dictated on Workstation: [employer] --- Final --- Dictated: 12/22/2021 0:21 am Dictating Physician: MD SOLANO JEFFREY Signed Date and Time: 12/22/2021 0:22 am Signed by: MD SOLANO JEFFREY Transcribed Date and Time: 12/22/2021 0:21 [facility] Albert Solano MD - 12/22/2021 Patient Name: ANDREW SIFUENTES Diagnostic Radiology ACCESSION EXAM DATE/TIME PROCEDURE ORDERING PROVIDER [id number] 12/22/2021 00:09 EDT CR Foot Complete 3+ SANDY HIDALGO JOHN M Views Left CPT code 85001 Reason For Exam (CR Foot Complete 3+ [...] Time: 12/22/2021 0:22 am Signed by: MD SOALNO JEFFREY Transcribed Date and Time: 12/22/2021 0:21 [facility] Work Phone: Radiology Study observation (narrative) [facility] Work Phone: XR FOOT LEFT (MIN 3 VIEWS)Or dered By: Albert Solano on 12-22-2021 [facility] Work Phone: Basophil percentageon 2021 Chloride [Moles/Vol] 103 mmol/L 98-107 [facility] Work Phone: Glucose [Mass/Vol] 92 mg/dL 74-106 [facility] Work Phone: Potassium [Moles/Vol] 3.5 mmol/L 3.5-5.1 [facility] Work Phone: Sodium [Moles/Vol] 138 mmol/L 136-145 [facility] Work Phone: WBC (Bld) [#/Vol] 11.2 10*3/uL 4.4-11.[address] [facility] Work Phone: Blood erythrocytes count (nu mber/volume)on 12-19-2021 RBC (Bld) [#/Vol] 4.50 10*6/uL 4.6-6.[address] [facility] Work Phone: [phone] Blood hemoglobin measurement (mass/volume)on 12-19-2021 Hemoglobin [...] 12-19-2021 MCHC (RBC) [Mass/Vol] 31.7 g/dL 32-36 [facility] Work Phone: No Panel Informationon 12-19 [...] (mass/volume)on 12-19-2021 Calcium [Mass/Vol] 9.5 mg/dL 8.5-10.1 [facility] Work Phone: Serum or plasma creatinine m easurement (mass/volume)on 12-19-2021 Creatinine [Mass/Vol] 0.66 mg/dL 0.70-1.30 [facility] Work Phone: Comment on above: The validity of the calculated GFR & GFRAA in patients over 70 years has not been determined. Clinical correlation is essential. Serum or plasma urea nitroge n measurement (mass/volume)on 12-19-2021 Urea nitrogen [Mass/Vol] 18 mg/dL 7-18 [facility] Work Phone: Thin prep Papanicolaou smear with manual screeningon 12-19-2021 Thin prep Papanicolaou smear with manual screening 09-18 [facility] Work Phone: Laboratory - Coagulationon 0 12-12-2021 INR Coag (Bld) [Relative time] 2.0 {INR} [facility] Work Phone: Comment on above: Critical Value > 4.0 Whole blood prothrombin time on 12-12-2021 PT Coag (Bld) [Time] 23.9 s 11.7-14.9 [facility] Work Phone: ANES POSTPROC EVALon 022 ANES POSTPROC EVAL Normal [facility] Laboratory - Coagulationon 0 12-08-2021 INR Coag (Bld) [Relative time] 1.8 {INR} [facility] Work Phone: Comment on above: Critical Value > 4.0 Whole blood prothrombin time on 12-08-2021 PT Coag (Bld) [Time] 21.0 s 11.7-14.9 [facility] Work Phone: Absolute lymphocyte counton 12-05-2021 Lymphocytes Auto (Unsp spec) [#/Vol] 2.97 10*3/uL 0.83-4.51 [facility] Work Phone: Basophil percentageon 2021 Basophils/100 WBC (Bld) 0.6 % 0-1 [facility] Work Phone: Chloride [Moles/Vol] 106 mmol/L 98-107 [facility] Work Phone: Eosinophils/100 WBC (Bld) 2.3 % 0-5 [facility] Work Phone: Glucose [Mass/Vol] 107 mg/dL 74-106 [facility] Work Phone: Comment on above: Fasting Glucose resu lt from 100 to 125 mg/dL suggests IMPAIRED HOMEOSTASIS per A.D.A. criteria. Neutrophils (Bld) [#/Vol] 5.6 10*3/uL 2.0-7.7 [facility] Work Phone: Neutrophils/100 WBC (Bld) 60.2 % 47-70 [facility] Work Phone: [phone] Potassium [Moles/Vol] 3.4 mmol/L 3.5-5.1 [facility] Work Phone: [phone] Sodium [Moles/Vol] 139 mmol/L 136-145 [facility] Work Phone: WBC (Bld) [#/Vol] 9.3 10*3/uL 4.4-11.0 [facility] Work Phone: [phone] Blood erythrocytes count (nu mber/volume)on 12-05-2021 RBC (Bld) [#/Vol] 4.49 10*6/uL 4.6-6.[address] [facility] Work Phone: Blood hemoglobin measurement [...] PT Coag (PPP) [Time] 20.5 s 11.7-14.9 [facility] Work Phone: Laboratory - Hematology and [...] 12-05-2021 MCHC (RBC) [Mass/Vol] 31.8 g/dL 32-36 [facility] Work Phone: No Panel Informationon 12-05 [...] (mass/volume)on 12-05-2021 Calcium [Mass/Vol] 9.4 mg/dL 8.5-10.1 [facility] Work Phone: Serum or plasma creatinine m easurement (mass/volume)on 12-05-2021 Creatinine [Mass/Vol] 0.75 mg/dL 0.70-1.30 [facility] Work Phone: Comment on above: The [...] 2021 Basophil percentage 0 SEEN /hpf 0-5 [facility] Work Phone: Chloride [Moles/Vol] 104 mmol/L 98-107 [facility] Work Phone: Glucose [Mass/Vol] 90 mg/dL 74-106 [facility] Work Phone: Potassium [Moles/Vol] 3.7 mmol/L 3.5-5.[address] [facility] [facility] Work Phone: Comment on above: Slight Hemolysis, Re sult may be falsely increased. Sodium [Moles/Vol] 138 mmol/L 136-145 [facility] Work Phone: WBC (Bld) [#/Vol] 10.7 10*3/uL 4.4-11.[address] [facility] Work Phone: Bilirubin Test strip Ql (U)o n 12-01-2021 Bilirubin Ql (U) Negative Negative [facility] Work Phone: Blood erythrocytes count (nu mber/volume)on 12-01-2021 RBC (Bld) [#/Vol] 4.33 10*6/uL 4.6-6.[address] [facility] Work Phone: Blood hemoglobin measurement [...] 12-01-2021 MCHC (RBC) [Mass/Vol] 31.4 g/dL 32-36 [facility] Work Phone: Mucus LM Ql (Urine sed)on Mucus Ql (Urine sed) 0 SEEN /hpf [facility] Work Phone: Nitrite Test strip Ql [...] (mass/volume)on 12-01-2021 Calcium [Mass/Vol] 9.4 mg/dL 8.5-10.1 [facility] Work Phone: Serum or plasma creatinine m easurement (mass/volume)on 12-01-2021 Creatinine [Mass/Vol] 0.75 mg/dL 0.70-1.[address] [facility] Work Phone: Comment on above: The validity [...] 12-01-2021 Urobilinogen Ql (U) Normal mg/dl Normal [facility] Work Phone: Whole blood prothrombin time on 12-01-2021 PT Coag (Bld) [Time] 19.8 s 11.7-14.9 [facility] Work Phone: Laboratory - Coagulationon 0 11-28-2021 INR Coag (Bld) [Relative time] 1.6 {INR} [facility] Work Phone: Comment on above: Critical Value > 4.0 Whole blood prothrombin time on 11-28-2021 PT Coag (Bld) [Time] 18.8 s 11.7-14.9 [facility] Work Phone: INR in Blood by Coagulation assayon 11-23-2021 INR Coag (Bld) [Relative time] 2.7 {INR} [facility] Work Phone: Laboratory - Coagulationon 0 11-23-2021 PT Coag (PPP) [Time] 28.0 s 11.7-14.9 [facility] Work Phone: Laboratory - Coagulationon 0 11-22-2021 INR Coag (Bld) [Relative time] 3.8 {INR} [facility] Work Phone: Comment on above: Critical Value > 4.0 Whole blood prothrombin time on 11-22-2021 PT Coag (Bld) [Time] 42.8 s 11.7-14.9 [facility] Work Phone: INR in Blood by Coagulation assayon 11-21-2021 INR Coag (Bld) [Relative time] 3.9 {INR} [facility] Work Phone: Laboratory - Coagulationon 0 11-21-2021 PT Coag (PPP) [Time] 37.7 s 11.7-14.9 [facility] Work Phone: Whole blood prothrombin time on 11-21-2021 PT Coag (Bld) [Time] 45.5 s 11.7-14.9 [facility] Work Phone: INR in Blood by Coagulation assayon 11-14-2021 INR Coag (Bld) [Relative time] 3.1 {INR} [facility] Work Phone: Laboratory - Coagulationon 0 11-14-2021 PT Coag (PPP) [Time] 31.4 s 11.7-14.9 [facility] Work Phone: Laboratory - Coagulationon 0 11-08-2021 INR Coag (Bld) [Relative time] 2.5 {INR} [facility] Work Phone: Comment on above: Critical Value > 4.0 Whole blood prothrombin time on 11-08-2021 PT Coag (Bld) [Time] 29.0 s 11.7-14.9 [facility] Work Phone: Basophil percentageon 2021 Chloride [Moles/Vol] 106 mmol/L 98-107 [facility] Work Phone: Glucose [Mass/Vol] 100 mg/dL 74-106 [facility] Work Phone: Comment on above: Fasting Glucose resu lt from 100 to 125 mg/dL suggests IMPAIRED HOMEOSTASIS per A.D.A. criteria. Potassium [Moles/Vol] 3.7 mmol/L 3.5-5.[address] [facility] Work Phone: Sodium [Moles/Vol] 140 mmol/L 136-145 [facility] Work Phone: WBC (Bld) [#/Vol] 8.8 10*3/uL 4.4-11.0 [facility] Work Phone: Blood erythrocytes count (nu mber/volume)on 11-04-2021 RBC (Bld) [#/Vol] 4.05 10*6/uL 4.6-6.[address] [facility] Work Phone: Blood hemoglobin measurement [...] PT Coag (PPP) [Time] 20.4 s 11.7-14.9 [facility] Work Phone: Laboratory - Hematology and Cell countson 11-04-2021 Erythrocyte distribution width (RBC) [Entitic vol] 48.1 fL 35.1-43.9 [facility] Work Phone: Erythrocyte distribution width (RBC) [Ratio] 15.0 % 11.6-14.6 [facility] Work Phone: MCH (RBC) [Entitic mass] 27.4 pg 27.0-32.0 [facility] Work Phone: MCHC Auto (RBC) [Mass/Vol]on 11-04-2021 MCHC (RBC) [Mass/Vol] 31.5 g/dL 32-36 [facility] Work Phone: No Panel Informationon 11-04 [...] For more information see Policy Stat Procedure [place] High Sensitivity Troponin (TNIH) and attachments. Platelets [...] (mass/volume)on 11-04-2021 Calcium [Mass/Vol] 9.1 mg/dL 8.5-10.1 [facility] Work Phone: Serum or plasma creatinine m easurement (mass/volume)on 11-04-2021 Creatinine [Mass/Vol] 0.66 mg/dL 0.70-1.30 [facility] Work Phone: Comment on above: The [...] Urinalysison 2021 Appearance (U) Clear Normal Clear [facility] Comment on above: Result Comment: . Performed By: #### C UA2 ####[facility] [place] [address] Bacteria Moderate Abnormal Negative [facility] Comment on above: Result Comment: . Performed By: #### C UA2 ####[address] [place], [place] Bilirubin,Urine Negative Normal Negative [facility] Comment on above: Result Comment: . Performed By: #### C UA2 ####[address] [place], [place] Cast, Hyaline Negative Normal Negative [facility] Comment on above: Result Comment: . Performed By: #### C UA2 ####[place] [place], [place] Color (U) Yellow Normal Lt. Yellow [facility] Comment on above: Result Comment: . Performed By: #### C UA2 ####[address] [place], [place] Glucose Ql (U) Normal Normal Normal (<70) [facility] Comment on above: Result Comment: . Performed By: #### C UA2 ####[address] [place], [place] Ketone,Urine Negative Normal Negative [facility] Comment on above: Result Comment: . Performed By: #### C UA2 ####[address] [place], [place] Leukocytes,Urine Negative Normal Negative [facility] Comment on above: Result Comment: . Performed By: #### C UA2 ####[address] [place], [place] Mucous Threads Few Normal Negative [facility] Comment on above: Result Comment: . Performed By: #### C UA2 ####[address] [place], [place] Nitrites,Urine Negative Normal Negative [facility] Comment on above: Result Comment: . Performed By: #### C UA2 ####[address] [place], [place] Occult Blood,Urine 0.1 mg/dL Abnormal Negative [facility] Comment on above: Result Comment: . Performed By: #### C UA2 ####[address] [place], [place] pH,Urine 5.5 Normal 5.0-8.0 [facility] Comment on above: Result Comment: . Performed By: #### C UA2 ####[id number] [place], [place] Protein (U) [Mass/Vol] 10 mg/dL Abnormal Negative [facility] Comment on above: Result Comment: . Performed By: #### C UA2 ####[address] RBC, Urine 26 - 50 Abnormal 0-2 [facility] Comment on above: Result Comment: . Performed By: #### C UA2 ####[address] Specific [place],Urine 1.023 Normal 1.005 - 1.030 [facility] Comment on above: Result Comment: . Performed By: #### C UA2 ####[address] Squamous Epithelial Negative Normal 3-5 [facility] Comment on above: Result Comment: . Performed By: #### C UA2 ####[address] Urobilinogen,Urine Normal Normal Normal (0-1) [facility] Comment on above: Result Comment: . Performed By: #### C UA2 ####[address] WBC, Urine 0 - 2 Normal 0-5 [facility] Comment on above: Result Comment: . Performed By: #### C UA2 ####[address] Urinalysison 11-01-2021 Appearance (U) Clear Clear [...] and review of laboratory results Abnormal [facility] Ketones Ql (U) Negative Negative mg/dL [...] Protein (U) [Mass/Vol] 10 mg/dL Abnormal Negative [facility] Comment on above: . RBC, UA 26-50 Abnormal 0 - 2 /[HPF] [facility] Comment on above: . Specific [place], Urine 1.023 [facility] Comment on above: . Squam Epithel, UA Negative 3 - 5 /[HPF] [facility] Comment on above: . Urobilinogen, Urine Normal Normal ( 0-1) mg/dL [facility] Comment on above: . WBC, UA 0-2 0 - 5 /[HPF] [facility] Comment on above: . Test Performed by [facility], [address] [place] [id number] [place] [address] LAB [facility] Basic Metabolic Panelon 06-2 Anion gap [Moles/Vol] 6 mmol/L Normal 3-13 [facility] Comment on above: Performed By: #### P T/AP, TROPN, BMP3, HEMDF #### [address] [address] Calcium [Mass/Vol] 9.1 mg/dL Normal 8.4-10.4 [facility] Comment on above: Performed By: #### P T/AP, TROPN, BMP3, HEMDF #### [address] [address] CO2 [Moles/Vol] 28 mmol/L Normal 22-30 [facility] Comment on above: Performed By: #### P T/AP, TROPN, BMP3, HEMDF #### [address] [address] Glucose [Mass/Vol] 120 mg/dL High 70-100 [facility] Comment on above: Performed By: #### P T/AP, TROPN, BMP3, HEMDF #### [facility] [address] [place], [place] Urea nitrogen [Mass/Vol] 17 mg/dL Normal 7-17 [facility] Comment on above: Performed By: #### P T/AP, TROPN, BMP3, HEMDF #### [facility] [address] [place], [place] Creatinine [Mass/Vol] 0.65 mg/dL Normal 0.52-1.25 [facility] Comment on above: Performed By: #### P T/AP, TROPN, BMP3, HEMDF #### [facility] [address] [place], [place] eGFR OTHER > 90.0 Normal >60 [facility] Comment on above: Result Comment: KDIG O [...] P T/AP, TROPN, BMP3, HEMDF #### [facility] [address] [place], [place] GFR/1.73 sq M.predicted among blacks MDRD (S/P/Bld) [Vol rate/Area] mL/min/{1.73_m2} Normal >60 [facility] Comment on above: Performed By: #### P T/AP, TROPN, BMP3, HEMDF #### [facility] [address] [place], [place] Potassium [Moles/Vol] 3.8 mmol/L Normal 3.5-5.1 [facility] Comment on above: Performed By: #### P T/AP, TROPN, BMP3, HEMDF #### [facility] [address] [place], [place] Chloride [Moles/Vol] 101 mmol/L Normal 98-107 [facility] Comment on above: Performed By: #### P T/AP, TROPN, BMP3, HEMDF #### [facility] [address] [place], [place] Sodium [Moles/Vol] 134 mmol/L Low 135-145 [facility] Comment on above: Performed By: #### P T/AP, TROPN, BMP3, HEMDF #### [address] Anion gap [Moles/Vol] 6 mmol/L 3 - 13 mmol/L [facility] Calcium [Mass/Vol] 9.1 mg/dL 8.4 - 10. 4 mg/dL [facility] Chloride [Moles/Vol] 101 mmol/L 98 - 10 7 mmol/L [facility] CO2 [Moles/Vol] 28 mmol/L 22 - 30 mmol/L [facility] Creatinine [Mass/Vol] 0.65 mg/dL 0.52 - 1.25 mg/dL [facility] EGFR IF NonAfrican Montenegrin >90.0 >60 mL/min [facility] Comment on above: KDIGO guidelines pro [...] - 17 mg/dL [facility] Test Performed by [id number] [place] [address] LAB [facility] CBC with Auto Differentialon 10-31-2021 [...] 10.7 10*3/uL [facility] Test Performed by [address] LAB [facility] CR Abdomen APon 10-31-2021 CR Abdomen AP Patient Name: ANDREW SIFUENTES Diagnostic Radiology ACCESSION EXAM DATE/TIME PROCEDURE ORDERING PROVIDER [id number] 10/31/2021 20:36 EDT CR Abdomen AP [id number] -MYRON DURAN CPT code 53356 Reason For Exam (CR Abdomen AP) vp of global marketing shunt, 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 CHEST PORTABLE [...] Date and Time: 10/31/2021 8:49 Normal [facility] CR Chest Portableon 11-01-19 22 CR Chest Portable Patient Name: ANDREW SIFUENTES Diagnostic Radiology ACCESSION EXAM DATE/TIME PROCEDURE ORDERING PROVIDER [id number] 10/31/2021 20:36 EDT CR Chest Portable [id number] MYRON GALINDO CPT code 89592 Reason For Exam (CR Chest Portable) AMS [...] Date and Time: 10/31/2021 8:[address] [facility] [address] HEAD WO CONTRASTon 2021 Patient Name: ANDREW SIFUENTES Computed Tomography ACCESSION EXAM DATE/TIME PROCEDURE ORDERING PROVIDER [id number] 10/31/2021 20:[address] Head or Brain w/o [id number] -MYRON DURAN Contrast CPT code 57133 Reason For Exam (CT Head or Brain w/o Contrast) AMS, previous HAND ENDBAND CUTTER shunt Report Examination: CT Head Clinical Information: AMS, previous HAND ENDBAND CUTTER shunt Comparison: 10/26/2021, MRI 10/27/2021 Findings: Serial [...] J Transcribed Date and Time: 10/31/2021 8:54 [facility] Alan Hernandez MD - 10/31/2021 Patient Name: ANDREW SIFUENTES Computed Tomography ACCESSION EXAM DATE/TIME PROCEDURE ORDERING PROVIDER [id number] 10/31/2021 20:[address] Head or Brain w/o [id number] -MYRON DURAN Contrast CPT code 72337 Reason For Exam (CT Head or Brain w/o Contrast) AMS, previous HAND ENDBAND CUTTER shunt Report Examination: CT Head Clinical Information: AMS, previous HAND ENDBAND CUTTER shunt Comparison: 10/26/2021, MRI 10/27/2021 Findings: Serial [...] Patient Name: ANDREW SIFUENTES [facility]#: [id number] Computed Tomography ACCESSION EXAM DATE/TIME PROCEDURE ORDERING PROVIDER [id number] 10/31/2021 20:[address] Head or Brain w/o [id number] -MYRON DURAN Contrast CPT code 25484 Reason For Exam (CT Head or Brain w/o Contrast) AMS, previous HAND ENDBAND CUTTER shunt Report Examination: CT Head Clinical Information: AMS, previous HAND ENDBAND CUTTER shunt Comparison: 10/26/2021, MRI 10/27/2021 Findings: Serial [...] Date and Time: 10/31/2021 8:54 Normal [facility] ED Provider Noteon ED Provider Note Emergency Department Encounter [facility] EMERGENCY DEPT Patient: Andrew Sifuentes [...] is cooperative and calm. According to the long-term, he has been more lethargic than normal, [...] [employer] Dante Kim MD 10/31/21 2211 [facility] ED Provider Note [facility] EMERGENCY DEPT EMERGENCY DEPARTMENT ENCOUNTER Pt Name: Andrew Sifuentes Birthdate 1950 Date of evaluation: 10/31/2021 Provider: Myron Duran MD CHIEF COMPLAINT Chief Complaint Patient presents with ? Altered Mental Status Pt presents to ED via [facility] for complaint listed. Pt is from [place] [facility]. Pt's LKW was 1000 hours today. [...] have a history of hydrocephalus with a HAND ENDBAND CUTTER shunt. 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 REVIEW OF [...] (HCC) ? Kidney stone ? Neuropathy ? HAND ENDBAND CUTTER (ventriculoperitoneal) shunt status SURGICAL HISTORY Past Surgical [...] Transportati (more content not included)... 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 : 1950 Requested By: MYRON DURAN Order Number: [id number] Reading MD: Dante Kim Measurements Intervals [place] Rate: 91 P: 41 HI: 154 QRS: 50 QRSD: 147 T: 8 QT: 385 QTc: 474 Interpretive Statements Sinus rhythm Right bundle branch block Electronically Signed On 10-31-2021 20:36:25 EDT by Dante Kim [facility] CARDIOLOGY Dante Kim M D - 10/31/2021 [facility] Test Date: 2021-10-31 Pat Name: ANDREW SIFUENTES Department: [facility] Room: 40 Gender: M Production Artist: ANDRES : 1950 Requested By: MYRON DURAN Order Number: [id number] Reading MD: Dante Kim Measurements Intervals [place] Rate: 91 P: 41 HI: 154 QRS: 50 QRSD: 147 T: 8 QT: 385 QTc: 474 Interpretive Statements Sinus rhythm Right bundle branch block Electronically Signed On 10-31-2021 20:36:25 EDT by Dante Kim [facility] Work Phone: EKG 12 Lead - Chest PainOrde red By: Dante Kim on 10-31-2021 [facility] Work Phone: Hemogram w/ [employer] 10-31 Abs Baso Cnt 0.1 10*3/uL Normal 0.0-0.2 [facility] [employer] [facility] Comment on above: Performed By: #### P T/AP, TROPN, BMP3, HEMDF #### [employer] [facility] [address] [place] [address] Abs Neutrophile Cnt 6.0 10*3/uL Normal 1.8-7.0 [facility] [employer] [facility] Comment on above: Performed By: #### P T/AP, TROPN, BMP3, HEMDF #### [facility] [address] [place] [address] Basophils/100 WBC (Bld) 1.1 % Normal 0.0-2.0 [facility] [employer] [facility] Comment on above: Performed By: #### P T/AP, TROPN, BMP3, HEMDF #### [facility] [address] [place] [address] Eosinophils (Bld) [#/Vol] 0.2 10*3/uL Normal 0.0-0.5 [facility] Comment on above: Performed By: #### P T/AP, TROPN, BMP3, HEMDF #### [employer] [facility] [address] [place] [address] Eosinophils/100 WBC (Bld) 2.3 % Normal 1.0-6.0 [facility] Comment on above: Performed By: #### P T/AP, TROPN, BMP3, HEMDF #### [place] [place], [place] Erythrocyte distribution width (RBC) [Ratio] 17.2 % High 11.5-14.5 [facility] Comment on above: Performed By: #### P T/AP, TROPN, BMP3, HEMDF #### [place] [place], [place] Granulocytes/100 WBC (Bld) 61.8 % Normal 40.0-80.0 [facility] Comment on above: Performed By: #### P T/AP, TROPN, BMP3, HEMDF #### [place] [place], [place] Hematocrit (Bld) [Volume fraction] 35.0 % Low 40.0-52.0 [facility] Comment on above: Performed By: #### P T/AP, TROPN, BMP3, HEMDF #### [place] [place], [place] Hemoglobin (Bld) [Mass/Vol] 11.3 g/dL Low 13.0-18.0 [facility] Comment on above: Performed By: #### P T/AP, TROPN, BMP3, HEMDF #### [place] [place], [place] Lymphocytes (Bld) [#/Vol] 2.8 10*3/uL Normal 1.0-4.3 [facility] Comment on above: Performed By: #### P T/AP, TROPN, BMP3, HEMDF #### [place] [place], [place] Lymphocytes/100 WBC (Bld) 29.2 % Normal 20.0-40.0 [facility] Comment on above: Performed By: #### P T/AP, TROPN, BMP3, HEMDF #### [place] [place], [place] MCH (RBC) [Entitic mass] 27.5 pg Normal 26.0-34.0 [facility] Comment on above: Performed By: #### P T/AP, TROPN, BMP3, HEMDF #### [place] [place], [place] MCHC 32.3 % Normal 32.0-36.0 [facility] Comment on above: Performed By: #### P T/AP, TROPN, BMP3, HEMDF #### [place] [place], [place] MCV (RBC) [Entitic vol] 85.0 fL Normal 80.0-98.0 [facility] Comment on above: Performed By: #### P T/AP, TROPN, BMP3, HEMDF #### [address] Monocytes (Bld) [#/Vol] 0.5 10*3/uL Normal 0.0-0.8 [facility] Comment on above: Performed By: #### P T/AP, TROPN, BMP3, HEMDF #### [address] Monocytes/100 WBC (Bld) 5.6 % Normal 2.0-10.0 [facility] Comment on above: Performed By: #### P T/AP, TROPN, BMP3, HEMDF #### [place] [place], [place] Platelet mean volume (Bld) [Entitic vol] 8.6 fL Normal 7.4-12.4 [facility] Comment on above: Result Comment: MPV is a calculated measurement using platelet volume ratio. Performed By: #### P T/AP, TROPN, BMP3, HEMDF #### [place] [place], [place] Platelets (Bld) [#/Vol] 348 10*3/uL Normal 140-440 [facility] Comment on above: Performed By: #### P T/AP, TROPN, BMP3, HEMDF #### [address] [place], [place] RBC (Bld) [#/Vol] 4.12 10*6/uL Low 4.40-5.90 [facility] Comment on above: Performed By: #### P T/AP, TROPN, BMP3, HEMDF #### [facility] [address] [place] [address] WBC (Bld) [#/Vol] 9.7 10*3/uL Normal 3.6-10.7 [facility] Comment on above: Performed By: #### P T/AP, TROPN, BMP3, HEMDF #### [facility] [address] [place] [address] Laboratory - Coagulationon 0 10-31-2021 INR Coag (Bld) [Relative time] 2.0 {INR} [facility] Work Phone: Comment on above: Critical Value > 4.0 No Panel Informationon 10-31 Radiology Study observation (narrative) [facility] Work Phone: PROTIME/INR & PTTon 11-01-19 22 aPTT Coag (Bld) [Time] 39.2 s High 20.0 - 30.5 s [facility] Comment on above: NOTE: The therapeuti c time for Heparin anticoagulation, based on Xa activity inhibition, is an APTT of 46-80 seconds. INR Coag (Bld) [Relative time] 1.9 {INR} High [facility] Comment on above: Recommended Anticoag ulant [...] Interpretation and review of laboratory results Abnormal [facility] PT Coag (PPP) [Time] 19.8 s High 9.0 - 12.0 s [facility] Comment on above: . Test Performed by [facility], [address] [place] [address] [facility] Protime AND APTTon aPTT Coag (Bld) [Time] 39.2 s High 20.0-30.5 [facility] Comment on above: Result Comment: NOTE : The therapeutic time for Heparin anticoagulation, based on Xa activity inhibition, is an APTT of 46-80 seconds. Performed By: #### P T/AP, TROPN, BMP3, HEMDF #### [address] [id number] INR 1.9 High 0.9-1.1 [facility] Comment on above: Result Comment: Harry mmended [...] #### P T/AP, TROPN, BMP3, HEMDF #### [address] [address] PT Coag (PPP) [Time] 19.8 s High 9.0-12.0 [facility] Comment on above: Result Comment: . Performed By: #### P T/AP, TROPN, BMP3, HEMDF #### [address] [address] Troponin Ion 10-31-2021 Troponin I.cardiac [Mass/Vol] ng/mL Normal 0.000-0.034 [facility] Comment on above: Result Comment: . Performed By: #### P T/AP, TROPN, BMP3, HEMDF #### [address] [address] Troponin x1on 10-31-2021 Troponin I.cardiac [Mass/Vol] ng/mL 0.000 - 0.034 ng/mL [facility] Comment on above: . Test Performed by [facility], [address] [place] [id number] [place] [address] LAB [facility] Whole blood prothrombin time on 10-31-2021 PT Coag (Bld) [Time] 23.7 s 11.7-14.9 [facility] Work Phone: XR ABDOMEN (KUB) (SINGLE AP VIEW)on 10-31-2021 Patient Name: ANDREW SIFUENTES Diagnostic Radiology ACCESSION EXAM DATE/TIME PROCEDURE ORDERING PROVIDER [id number] 10/31/2021 20:36 EDT CR Abdomen AP [id number] -MYRON DURAN CPT code 44428 Reason For Exam (CR Abdomen AP) vp of global marketing shunt, 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 CHEST PORTABLE [...] WENDELL Transcribed Date and Time: 10/31/2021 8:49 [facility] Huang Munoz MD - 10/31/2021 Patient Name: ANDREW SIFUENTES Diagnostic Radiology ACCESSION EXAM DATE/TIME PROCEDURE ORDERING PROVIDER [id number] 10/31/2021 20:36 EDT CR Abdomen AP [id number] MYRON GALINDO CPT code 08252 Reason For Exam (CR Abdomen AP) vp of global marketing shunt, 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 CHEST PORTABLE [...] CHEST PORTABLEon 11-01-19 Patient [facility]: [id number]iology ACCESSION EXAM DATE/TIME PROCEDURE ORDERING PROVIDER [id number] 10/31/2021 20:36 EDT CR Chest Portable [id number] MYRON GALINDO CPT code 62533 Reason For Exam (CR Chest Portable) AMS [...] WENDELL Transcribed Date and Time: 10/31/2021 8:49 [facility] Huang Reynoso MD - 10/31/2021 Patient Name: ANDREW SIFUENTES Diagnostic Radiology ACCESSION EXAM DATE/TIME PROCEDURE ORDERING PROVIDER [id number] 10/31/2021 20:36 EDT CR Chest Portable [id number] MYRON GALINDO CPT code 65076 Reason For Exam (CR Chest Portable) AMS [...] and Time: 10/31/2021 8:49 [facility] Work Phone: [phone] XR CHEST PORTABLEOrdered By: Huang Reynoso on 10-31-2021 [facility] Work [facility]: Lupus Anticoagulanton 2021 DRVVT Confirmation Test Not Applicable Negative ratio [facility] Work Phone: [phone] dRVVT Screen 38 [facility] Work Phone: [phone] Hex Phosph Neut Test Not Applicable Negative NA [facility] Work Phone: [phone] Interpretation and [...] has not already been performed. Performed by [facility], [address] [place] [address] [id number] [email or web address], Quiana Castro MD - Lab. Director Platelet Neutralization Not Applicable Negative NA [facility] Work Phone: [phone] PTT-D Heparin Neutralized 48 [facility] Work Phone: [phone] PTT-LA 55 High [facility] Work Phone: [phone] Reptilase Tm 17.6 <=21.9 sec [facility] Work Phone: [phone] Thrombin Time 25.3 High [facility] Work Phone: [phone] [facility] Work Phone: [phone] Lupus Anticoagulant Reflexiv e Panelon 10-29-2021 aPTT Coag (Bld) [Time] 55 s High 32-48 [facility] Comment on above: Performed By: #### C OVAG #### [facility] [address] [place] [address] aPTT Coag (Bld) [Time] 48 s Normal 32-48 [facility] Comment on above: Performed By: #### C OVAG #### [facility] [address] [place] [address] DRVVT 1:1 Mix Not Applicable Normal 33-44 [facility] Work Phone: Comment on above: Performed By: #### C OVAG #### [facility] [address] [place] [address] dRVVT Confirmation Not Applicable Normal Negative [facility] Comment on above: Performed By: #### C OVAG #### [facility] [address] [place] [address] dRVVT Screen 38 sec Normal 33-44 [facility] Comment on above: Performed By: #### C OVAG #### [facility] [address] [place] [address] Hexagonal Phospholipid Neutral Reflex Not Applicable Normal Negative [facility] Comment on above: Performed By: #### C OVAG #### [facility] [address] [place] [address] Lupus Anticoagulant Interpretation See Note Normal [facility] Comment on above: Result Comment: Lupu s [...] has not already been performed. Performed by [facility], [address] [place] [id number] [email or web address], Quiana Castro MD - Lab. Director Performed By: #### C OVAG #### [facility] [address] [place] [address] Platelet Neutralization (PTT-D, Confirm) Not Applicable Normal Negative [facility] Comment on above: Performed By: #### C OVAG #### [facility] [address] [place] [address] PT Coag (PPP) [Time] 14.7 s Normal 12.0-15.5 [facility] Work Phone: Comment on above: Performed By: #### C OVAG #### [place] [address] [place] [address] PTT-D 1:1 Mix Not Applicable Normal 32-48 [facility] Work Phone: Comment on above: Performed By: #### C OVAG #### [place] [address] [place] [address] Reptilase Time 17.6 sec Normal <=21.9 [facility] Comment on above: Performed By: #### C OVAG #### [address] [place] [address] Thrombin Time 25.3 sec High 14.7-19.5 [facility] Comment on above: Performed By: #### C OVAG #### [address] [place] [address] POCT COVID-19, Antigenon SARS-CoV-2 Nucleocapsid Antigen Negative Negative [facility] Comment on above: A negative result does not rule out the possibility of SARS-CoV-2 infection. NAAT-based methods should be considered for symptomatic patients presenting greater than seven days after onset of symptoms. Method: Lateral flow immunoassay. Fact sheets for healthcare providers and patients can be found at the following sites: https://www.fda.gov/media/553389/download https://www.fda.gov/media/950156/download Test Performed by [facility], [address] [place], [place] [id number] [place] [address] LAB [facility] Prothrombin Timeon 2 INR 2.7 High 0.9-1.1 [facility] Comment on above: Result Comment: Harry mmended [...] Performed By: #### P T #### [facility] [address] [place] [address] PT Coag (PPP) [Time] 27.4 s High 9.0-12.0 [facility] Comment on above: Result Comment: . Performed By: #### P T #### [facility] [address] [place] [address] Protime-INRon 10-29-2021 INR Coag (Bld) [Relative time] 2.7 {INR} High [facility] Work Phone: Comment on above: Recommended [...] Interpretation and review of laboratory results Abnormal [facility] Work Phone: PT Coag (PPP) [Time] 27.4 s High 9.0 - 12.0 s [facility] Work Phone: Comment on above: . Test Performed by [facility], [address] [place], [place] [address] [facility] LAB [facility] Work Phone: SARS-CoV-2 Antigenon 022 SARS-CoV-2 Antigen Negative Normal Negative [facility] Comment on above: Result Comment: A negative result does not rule out the possibility of SARS-CoV-2 infection. NAAT-based methods should be considered for symptomatic patients presenting greater than seven days after onset of symptoms. Method: Lateral flow immunoassay. Fact sheets for healthcare providers and patients can be found at the following sites: https://www.Activehours.gov/media/576956/download https://www.Activehours.gov/media/149713/download Performed By: #### C OVAG #### [facility] [address] [place] [address] [facility] 10-28-2021 Hematocrit (Bld) [Volume fraction] 33.4 % Low 40.0 - 52.0 % [facility] Work Phone: Hemoglobin (Bld) [Mass/Vol] 11.0 g/dL Low 13.0 - 18.0 g/dL [employer] Phone: Interpretation and review of laboratory results Abnormal [facility] Work Phone: MCH (RBC) [Entitic mass] 27.8 pg 26.0 - 34.0 pg [facility] Phone: MCHC (RBC) [Mass/Vol] 32.8 % 32.0 - 36.0 % [facility] Phone: MCV (RBC) [Entitic vol] 84.8 fL 80.0 - 98.0 fL [facility] Phone: Platelet distribution width (Bld) [Ratio] 17.1 % High 11.5 - 14.5 % [facility] Phone: Platelet mean volume (Bld) [Entitic vol] 8.3 fL 7.4 - 12.4 fL [facility] Phone: Comment on above: MPV is a calculated measurement using platelet volume ratio. Platelets (Bld) [#/Vol] 344 10*3/uL 140 - 440 10*3/uL [facility] Work Phone: ) RBC (Bld) [#/Vol] 3.94 10*6/uL Low 4.40 - 5.9 0 10*6/uL [facility] Work Phone: ) WBC (Bld) [#/Vol] 10.0 10*3/uL 3.6 - 10.7 10*3/uL [facility] Work Phone: Test Performed by [facility], [address] [place] [address] [facility] Work Phone: Comp Metabolic Panelon 10-28 ALP [Catalytic activity/Vol] 103 U/L Normal 38-126 [facility] Comment on above: Performed By: #### C A19O, LUPUS #### The performing lab is in the report. #### NSEO #### [facility] #### HEMDF, LDH3, BMP3, MG3, PT, CEA2 #### [facility] [address] [place] [address] #### B2GPM, B2GPA, B2GPG #### [address] ALT [Catalytic activity/Vol] 26 U/L Normal 0-49 [facility] Comment on above: Result Comment: The ALT test is performed by an updated assay method. Please note that the reference intervals have been changed and are now sex specific. Performed By: #### C A19O, LUPUS #### The performing lab is in the report. #### NSEO #### [facility] #### HEMDF, LDH3, BMP3, MG3, PT, CEA2 #### [facility] [address] [place] [address] #### B2GPM, B2GPA, B2GPG #### [address] AST [Catalytic activity/Vol] 24 U/L Normal 15-46 [facility] Comment on above: Performed By: #### C A19O, LUPUS #### The performing lab is in the report. #### NSEO #### [facility] #### HEMDF, LDH3, BMP3, MG3, PT, CEA2 #### [place] [address] [place] [address] #### B2GPM, B2GPA, B2GPG #### [address] Calcium [Mass/Vol] 9.1 mg/dL Normal 8.4-10.4 [facility] Comment on above: Performed By: #### C A19O, LUPUS #### The performing lab is in the report. #### NSEO #### [facility] #### HEMDF, LDH3, BMP3, MG3, PT, CEA2 #### [place] [address] [place] [address] #### B2GPM, B2GPA, B2GPG #### [address] Glucose [Mass/Vol] 117 mg/dL High 70-100 [facility] Comment on above: Performed By: #### C A19O, LUPUS #### The performing lab is in the report. #### NSEO #### [facility] #### HEMDF, LDH3, BMP3, MG3, PT, CEA2 #### [address] [place] [address] #### B2GPM, B2GPA, B2GPG #### [address] Urea nitrogen [Mass/Vol] 16 mg/dL Normal 7-17 [facility] Comment on above: Performed By: #### C A19O, LUPUS #### The performing lab is in the report. #### NSEO #### [facility] #### HEMDF, LDH3, BMP3, MG3, PT, CEA2 #### [address] [place] [address] #### B2GPM, B2GPA, B2GPG #### [address] Anion gap [Moles/Vol] 5 mmol/L Normal 3-13 [facility] Comment on above: Performed By: #### C A19O, LUPUS #### The performing lab is in the report. #### NSEO #### [facility] #### HEMDF, LDH3, BMP3, MG3, PT, CEA2 #### [address] [place] [address] #### B2GPM, B2GPA, B2GPG #### [address] Bilirubin [Mass/Vol] 0.4 mg/dL Normal 0.2-1.3 [facility] Comment on above: Performed By: #### C A19O, LUPUS #### The performing lab is in the report. #### NSEO #### [facility] #### HEMDF, LDH3, BMP3, MG3, PT, CEA2 #### [address] [place] #### B2GPM, B2GPA, B2GPG #### [address] CO2 [Moles/Vol] 29 mmol/L Normal 22-30 [facility] Comment on above: Performed By: #### C A19O, LUPUS #### The performing lab is in the report. #### NSEO #### [facility] #### HEMDF, LDH3, BMP3, MG3, PT, CEA2 #### [address] [place] [address] #### B2GPM, B2GPA, B2GPG #### [address] Creatinine [Mass/Vol] 0.71 mg/dL Normal 0.52-1.25 [facility] Comment on above: Performed By: #### C A19O, LUPUS #### The performing lab is in the report. #### NSEO #### [facility] #### HEMDF, LDH3, BMP3, MG3, PT, CEA2 #### [address] [place] [address] #### B2GPM, B2GPA, B2GPG #### [address] eGFR OTHER > 90.0 Normal >60 [facility] Comment on above: Result Comment: KDIG O [...] HEMDF, LDH3, BMP3, MG3, PT, CEA2 #### [facility] [employer] [facility] [address] [place] [address] #### B2GPM, B2GPA, B2GPG #### [facility] [employer] [address] [address] GFR/1.73 sq M.predicted among blacks MDRD (S/P/Bld) [Vol rate/Area] mL/min/{1.73_m2} Normal >60 [facility] Comment on above: Performed By: #### Eileen BarretoO LUPUS #### The performing lab is in the report. #### NSEO #### [facility] #### HEMDF, LDH3, BMP3, MG3, PT, CEA2 #### [facility] [address] [place] [address] #### B2GPM, B2GPA, B2GPG #### [address] [address] Protein [Mass/Vol] 7.1 g/dL Normal 6.3-8.2 [facility] Comment on above: Performed By: #### C A19O, LUPUS #### The performing lab is in the report. #### NSEO #### [facility] #### HEMDF, LDH3, BMP3, MG3, PT, CEA2 #### [facility] [address] [place] [address] #### B2GPM, B2GPA, B2GPG #### [address] [address] Potassium [Moles/Vol] 3.5 mmol/L Normal 3.5-5.1 [facility] Comment on above: Performed By: #### C A19O, LUPUS #### The performing lab is in the report. #### NSEO #### [facility] #### HEMDF, LDH3, BMP3, MG3, PT, CEA2 #### [address] [place] [address] #### B2GPM, B2GPA, B2GPG #### [address] Sodium [Moles/Vol] 138 mmol/L Normal 135-145 [facility] Comment on above: Performed By: #### C A19O, LUPUS #### The performing lab is in the report. #### NSEO #### [facility] #### HEMDF, LDH3, BMP3, MG3, PT, CEA2 #### [address] [place] [address] #### B2GPM, B2GPA, B2GPG #### [address] [address] Albumin [Mass/Vol] 3.7 g/dL Normal 3.5-5.0 [facility] Comment on above: Performed By: #### C A19O, LUPUS #### The performing lab is in the report. #### NSEO #### [facility] #### HEMDF, LDH3, BMP3, MG3, PT, CEA2 #### [address] [place] [address] #### B2GPM, B2GPA, B2GPG #### [address] [place] [address] Chloride [Moles/Vol] 104 mmol/L Normal 98-107 [facility] Comment on above: Performed By: #### C A19O, LUPUS #### The performing lab is in the report. #### NSEO #### [facility] #### HEMDF, LDH3, BMP3, MG3, PT, CEA2 #### [facility] [address] [place] [address] #### B2GPM, B2GPA, B2GPG #### [facility] [address] [place] [address] Comprehensive Metabolic Pane kiel 10-28-2021 Albumin [Mass/Vol] 3.7 g/dL 3.5 - 5.0 g/dL [facility] Work Phone: [phone] ALP (Bld) [Catalytic activity/Vol] 103 U/L 38 - 126 U/L [facility] Work Phone: [phone] ALT [Catalytic activity/Vol] 26 U/L 0 - 49 U/L [facility] Work Phone: [phone] Comment on above: The ALT test is perf ormed by an updated assay method. Please note that the reference intervals have been changed and are now sex specific. Anion gap [Moles/Vol] 5 mmol/L 3 - 13 mmol/L [facility] Work Phone: [phone] AST [Catalytic activity/Vol] 24 U/L 15 - 46 U/L [facility] Work Phone: [phone] Bilirubin [Mass/Vol] 0.4 mg/dL 0.2 - 1 .3 mg/dL [facility] Work Phone: [phone] Calcium [Mass/Vol] 9.1 mg/dL 8.4 - 10. 4 mg/dL [facility] Work Phone: [phone] Chloride [Moles/Vol] 104 mmol/L 98 - 10 7 mmol/L [facility] Work Phone: [phone] CO2 [Moles/Vol] 29 mmol/L 22 - 30 mmol/L [facility] Work Phone: [phone] Creatinine [Mass/Vol] 0.71 mg/dL 0.52 - 1.25 mg/dL [facility] Work Phone: [phone] IF NonAfrican Montenegrin >90.0 >60 mL/min [facility] Work Phone: Comment on above: KDIGO [...] fraction] 7.1 g/dL 6.3 - 8.2 g/dL [facility] Work Phone: -2 GFR/1.73 sq M.predicted among blacks MDRD (S/P/Bld) [Vol rate/Area] mL/min/{1.73_m2} >60 mL/min [facility] Work Phone: Glucose [Mass/Vol] 117 mg/dL High 70 - 100 mg/dL [facility] Work Phone: Interpretation and review of laboratory results Abnormal [facility] Work Phone: Potassium [Moles/Vol] 3.5 mmol/L 3.5 - 5.1 mmol/L [facility] Work Phone: [phone] Sodium [Moles/Vol] 138 mmol/L 135 - 145 mmol/L [facility] Work Phone: [phone] Urea nitrogen (BldV) [Mass/Vol] 16 mg/dL 7 - 17 mg/dL [facility] Work Phone: [phone] Test Performed by [facility], [address] LAB [facility] Work Phone: Hemogramon 10-28-2021 Erythrocyte distribution width (RBC) [Ratio] 17.1 % High 11.5-14.5 [facility] Comment on above: Performed By: #### C A19O, LUPUS #### The performing lab is in the report. #### NSEO #### [facility] #### HEMDF, LDH3, BMP3, MG3, PT, CEA2 #### [facility] [address] [place] [address] #### B2GPM, B2GPA, B2GPG #### [address] Hematocrit (Bld) [Volume fraction] 33.4 % Low 40.0-52.0 [facility] Comment on above: Performed By: #### C Sena9O, LUPUS #### The performing lab is in the report. #### NSEO #### [facility] #### HEMDF, LDH3, BMP3, MG3, PT, CEA2 #### [place] [address] [place] [address] #### B2GPM, B2GPA, B2GPG #### [address] Hemoglobin (Bld) [Mass/Vol] 11.0 g/dL Low 13.0-18.0 [facility] Comment on above: Performed By: #### C A19O, LUPUS #### The performing lab is in the report. #### NSEO #### [facility] #### HEMDF, LDH3, BMP3, MG3, PT, CEA2 #### [address] [place] [address] #### B2GPM, B2GPA, B2GPG #### [address] MCH (RBC) [Entitic mass] 27.8 pg Normal 26.0-34.0 [facility] Comment on above: Performed By: #### C A19O, LUPUS #### The performing lab is in the report. #### NSEO #### [facility] #### HEMDF, LDH3, BMP3, MG3, PT, CEA2 #### [address] [place] [address] #### B2GPM, B2GPA, B2GPG #### [address] MCHC 32.8 % Normal 32.0-36.0 [facility] Comment on above: Performed By: #### C A19O, LUPUS #### The performing lab is in the report. #### NSEO #### [facility] #### HEMDF, LDH3, BMP3, MG3, PT, CEA2 #### [address] [place] #### B2GPM, B2GPA, B2GPG #### [address] MCV (RBC) [Entitic vol] 84.8 fL Normal 80.0-98.0 [facility] Comment on above: Performed By: #### C A19O, LUPUS #### The performing lab is in the report. #### NSEO #### [facility] #### HEMDF, LDH3, BMP3, MG3, PT, CEA2 #### [address] [place] #### B2GPM, B2GPA, B2GPG #### [address] Platelet mean volume (Bld) [Entitic vol] 8.3 fL Normal 7.4-12.4 [facility] Comment on above: Result Comment: MPV is a calculated measurement using platelet volume ratio. Performed By: #### C A19O, LUPUS #### The performing lab is in the report. #### NSEO #### [facility] #### HEMDF, LDH3, BMP3, MG3, PT, CEA2 #### [address] [place] #### B2GPM, B2GPA, B2GPG #### [facility] [address] [place], [place] Platelets (Bld) [#/Vol] 344 10*3/uL Normal 140-440 [facility] Comment on above: Performed By: #### C A19O, LUPUS #### The performing lab is in the report. #### NSEO #### [facility] #### HEMDF, LDH3, BMP3, MG3, PT, CEA2 #### [facility] [address] [place] #### B2GPM, B2GPA, B2GPG #### [address] [place], [place] RBC (Bld) [#/Vol] 3.94 10*6/uL Low 4.40-5.90 [facility] Comment on above: Performed By: #### C A19O, LUPUS #### The performing lab is in the report. #### NSEO #### [facility] #### HEMDF, LDH3, BMP3, MG3, PT, CEA2 #### [facility] [address] [place] #### B2GPM, B2GPA, B2GPG #### [place] [address] [place], [place] WBC (Bld) [#/Vol] 10.0 10*3/uL Normal 3.6-10.7 [facility] Comment on above: Performed By: #### C A19O, LUPUS #### The performing lab is in the report. #### NSEO #### [facility] #### HEMDF, LDH3, BMP3, MG3, PT, CEA2 #### [facility] [address] [place] [address] #### B2GPM, B2GPA, B2GPG #### [address] Neuron Specific Enolaseon Neuron Specific Enolase 20.8 Normal [facility] Comment on above: Result Comment: Neur on Specific Enolase, Serum 20.8 ng/mL H (Ref Interval: <=12.7) NSE and Hgb are elevated in the specimen. The elevated NSE may be a result of hemolysis as NSE is expressed in red blood cells. Interpret results with caution. INTERPRETIVE INFORMATION: Neuron Specific Enolase in Serum This assay is performed using the [employer] NSE Kryptor Immunoassay. Results obtained with different assay methods or kits cannot be used interchangeably. Results cannot be interpreted as absolute evidence of the presence or absence of malignant disease. This test was developed and its performance characteristics determined by [facility]. It has not been cleared or approved by the [place] Food and Drug Administration. This test was performed in a CLIA certified laboratory and is intended for clinical purposes. Performed By: #### C OVAG #### [facility] [address] [place] [address] Neuron specific enolase (NSE )on 10-28-2021 Neuron Specific Enolase 20.8 [facility] Work Phone: Comment on above: Neuron Specific Enol ase, Serum 20.8 ng/mL H (Ref Interval: <=12.7) NSE and Hgb are elevated in the specimen. The elevated NSE may be a result of hemolysis as NSE is expressed in red blood cells. Interpret results with caution. INTERPRETIVE INFORMATION: Neuron Specific Enolase in Serum This assay is performed using the [employer] NSE Kryptor Immunoassay. Results obtained with different assay methods or kits cannot be used interchangeably. Results cannot be interpreted as absolute evidence of the presence or absence of malignant disease. This test was developed and its performance characteristics determined by [facility]. It has not been cleared or approved by the [place] Food and Drug Administration. This test was performed in a CLIA certified laboratory and is intended for clinical purposes. 1 [facility] Work Phone: Prothrombin Timeon 2 INR 3.1 High 0.9-1.1 [facility] Comment on above: Result Comment: Harry mmended [...] HEMDF, LDH3, BMP3, MG3, PT, CEA2 #### [address] [place] [address] #### B2GPM, B2GPA, B2GPG #### [address] [address] PT Coag (PPP) [Time] 30.8 s High 9.0-12.0 [facility] Comment on above: Result Comment: . Performed By: #### C A19O, LUPUS #### The performing lab is in the report. #### NSEO #### [facility] #### HEMDF, LDH3, BMP3, MG3, PT, CEA2 #### [address] [place] [address] #### B2GPM, B2GPA, B2GPG #### [address] [address] Protime-INRon 10-28-2021 INR Coag (Bld) [Relative time] 3.1 {INR} High [facility] Work Phone: Comment on above: Recommended Anticoag [...] 30.8 s High 9.0 - 12.0 s [facility] Work Phone: Comment on above: . Test Performed by [facility], [address], [place], [place] [id number] [place] [address] LAB [facility] Work Phone: MRI BRAIN WO CONTRASTon 10-06 Patient Name: ANDREW SIFUENTES [facility] ACCESSION EXAM DATE/TIME PROCEDURE ORDERING PROVIDER [id number] 10/27/2021 13:14 EDT MRI Brain w/o Contrast UNASSIGNED, UNASSIGNED CPT code 12381 Reason For Exam (MRI Brain w/o Contrast) stroke Patient has HAND ENDBAND CUTTER shunt in place, please follow Radiology protocol [...] OSAMA Transcribed Date and Time: 10/27/2021 2:39 Venus Tucker MD - 10/27/2021 [id number] Imaging ACCESSION EXAM DATE/TIME PROCEDURE ORDERING PROVIDER [id number] 10/27/2021 13:14 EDT MRI Brain w/o Contrast UNASSIGNED, UNASSIGNED CPT code 53245 Reason For Exam (MRI Brain w/o Contrast) stroke Patient has HAND ENDBAND CUTTER shunt in place, please follow Radiology protocol [...] Imaging ACCESSION EXAM DATE/TIME PROCEDURE ORDERING PROVIDER [id number] 10/27/2021 13:14 EDT MRI Brain w/o Contrast UNASSIGNED, UNASSIGNED CPT code 07433 Reason For Exam (MRI Brain w/o Contrast) stroke Patient has HAND ENDBAND CUTTER shunt in place, please follow Radiology protocol [...] Date and Time: 10/27/2021 2:39 Normal [facility] Prothrombin Timeon INR 2.1 High 0.9-1.1 [facility] Comment on above: Result Comment: Harry mmended [...] Performed By: #### P T #### [facility] [address] [place] [address] PT Coag (PPP) [Time] 21.9 s High 9.0-12.0 [facility] Work Phone: Comment on above: . Result Comment: . Performed By: #### P T #### [facility] [address] [place] [address] Protime-INRon 10-27-2021 INR Coag (Bld) [Relative time] 2.1 {INR} High [facility] Work Phone: Comment on above: Recommended [...] Interpretation and review of laboratory results Abnormal [facility] Work Phone: Test Performed by [facility], [address], [place], [place] [address] [facility] Work Phone: CT HEAD WO CONTRASTon 2021 Patient Name: ANDREW SIFUENTES Computed Tomography ACCESSION EXAM DATE/TIME PROCEDURE ORDERING PROVIDER [id number] 10/26/2021 11:[address] Head or Brain w/o JUNIE PINEDA ALLISON Contrast CPT code 00717 Reason For Exam (CT Head or Brain w/o Contrast) hydrocephalus. thank you Report CLINICAL INFORMATION: Hydrocephalus. Shunt. 3 mm axial cuts through the head are obtained without IV contrast. The examination is compared to a previous study dated 06/29/2014. FINDINGS: Old HAND ENDBAND CUTTER shunt tubing is noted bilaterally. The new [...] are clear. IMPRESSION: 1. Old and new HAND ENDBAND CUTTER shunt tubing. 2. No hydrocephalus. 3. Atrophy and evidence of small-vessel ischemic disease. 4. No CT evidence of an acute intracranial process. Report Dictated on --- Final --- Dictating Physician: MD SOLANO JEFFREY Signed Date and Time: 10/26/2021 11:42 am Signed by: MD SOLANO JEFFREY Transcribed Date and Time: 10/26/2021 11:43 [facility] Albert Solano MD - 10/26/2021 Patient Name: ANDREW SIFUENTES Computed Tomography ACCESSION EXAM DATE/TIME PROCEDURE ORDERING PROVIDER [id number] 10/26/2021 11:[address] Head or Brain w/o EDWIN, SERVER SERVICE ASSISTANT, SARINA Contrast CPT code 82120 Reason For Exam (CT Head or Brain w/o Contrast) hydrocephalus. thank you Report CLINICAL INFORMATION: Hydrocephalus. Shunt. 3 mm axial cuts through the head are obtained without IV contrast. The examination is compared to a previous study dated 06/29/2014. FINDINGS: Old HAND ENDBAND CUTTER shunt tubing is noted bilaterally. The new [...] are clear. IMPRESSION: 1. Old and new HAND ENDBAND CUTTER shunt tubing. 2. No hydrocephalus. 3. Atrophy [...] Tomography ACCESSION EXAM DATE/TIME PROCEDURE ORDERING PROVIDER [id number] 10/26/2021 11:[address] Head or Brain w/o JUNIE PINEDA, SARINA Contrast CPT code 82552 Reason For Exam (CT Head or Brain w/o Contrast) hydrocephalus. thank you Report CLINICAL INFORMATION: Hydrocephalus. Shunt. 3 mm axial cuts through the head are obtained without IV contrast. The examination is compared to a previous study dated 06/29/2014. FINDINGS: Old HAND ENDBAND CUTTER shunt tubing is noted bilaterally. The new [...] are clear. IMPRESSION: 1. Old and new HAND ENDBAND CUTTER shunt tubing. 2. No hydrocephalus. 3. Atrophy and evidence of small-vessel ischemic disease. 4. No CT evidence of an acute intracranial process. Report Dictated on Final Dictating Physician: MD SOLANO JEFFREY Signed Date and Time: 10/26/2021 11:42 am Signed by: MD SOLANO JEFFREY Transcribed Date and Time: 10/26/2021 11:43 Normal [facility] EEG awake and asleepon 10-26 Bony Tompkins MD 10/26/2021 4:06 PM [facility] [address] [place] [id number] ROUTINE EEG REPORT Patient Name: Andrew Sifuentes : 1950 Date of Study: 10/26/2021 Duration Recorded: 23 minutes EEG#: [id number] HUMAN RESOURCES PSYCHOLOGIST: CASTRO PROVIDER REQUESTING STUDY: Dr. Barreto REASON FOR EXAM: seizures HISTORY: Andrew Sifuentes is a 71 y.o. male with history of obstructive hydrocephalus s/p HAND ENDBAND CUTTER shunt in 1987, needing multiple revisions and [...] normal limits and both old and new HAND ENDBAND CUTTER shunt tubing noted. At present patient is awake, follows commands, was able to tell his name, and that he was in hospital but not oriented to time. Per documentation patient had NCSE in May 2021, was on Vimpat, but it was discontinued as there was no evidence of recurrent seizures in July 2021 by Neurology at [facility], per daughter patient was on Dilantin for 31 yrs. Per daughter patient had seizures in the past and also felt he had staring episodes this morning. Per daughter patient has been essentially bed bound in [place] since May 2021 but prior to that [...] tablet 40 mEq 40 mEq Oral PRN Mya Cash MD Or potassium bicarb-citric acid (EFFER-K) [...] study with video was carried out at [facility]. Scalp electrodes were positioned in person by an radioisotope technologist, following patient education, according to the 10-20 International system of electrode placement and maintained for integrity and quality of the recording. EEG data with video was recorded continuously and digitally stored. The radioisotope technologist reviewed all automated detections and manual [...] No normal vari (more content not included)... [facility] Work Phone: [facility] Work Phone: No Panel Informationon 10-26 Radiology Study observation (narrative) [facility] Work Phone: Prothrombin Timeon 2 INR 1.9 High 0.9-1.1 [facility] [employer] [facility] Comment on above: Result Comment: Harry mmended [...] Performed By: #### C OVAG #### [facility] [address] [place] [address] PT Coag (PPP) [Time] 19.7 s High 9.0-12.0 [facility] Comment on above: Result Comment: . Performed By: #### C OVAG #### [facility] [address] [place] [address] Protime-INRon 10-26-2021 INR Coag (Bld) [Relative time] 1.9 {INR} High [facility] Work Phone: Comment on above: Recommended [...] Interpretation and review of laboratory results Abnormal [facility] Work Phone: PT Coag (PPP) [Time] 19.7 s High 9.0 - 12.0 s [facility] Work Phone: Comment on above: . Test Performed by [facility], [address], [place], [place] [address] [facility] Work Phone: CA 19-9on 10-25-2021 CA 19-9 17 U/mL Normal <=35 [facility] Work Phone: Comment on above: INTERPRETIVE [...] or absence of malignant disease. Performed By: [facility] [address] [place] [address] Internet Database Specialist: Quiana Castro MD Result Comment: INTE RPRETIVE [...] or absence of malignant disease. Performed By: [facility] [address] [place] [address] Internet Database Specialist: Quiana Castro MD Performed By: #### C OVAG #### [facility] [address] [place] [address] Cancer Antigen 19-9on 2021 [facility] Work Phone: Prothrombin Timeon 2 INR 1.5 High 0.9-1.1 [facility] Comment on above: Result Comment: Harry mmended [...] Performed By: #### P T #### [facility] [address] [place] [address] PT Coag (PPP) [Time] 15.6 s High 9.0-12.0 [facility] Comment on above: Result Comment: . Performed By: #### P T #### [facility] [address] [place] [address] Protime-INRon 10-25-2021 INR Coag (Bld) [Relative time] 1.5 {INR} High [facility] Work Phone: Comment on above: Recommended [...] Interpretation and review of laboratory results Abnormal [facility] Work Phone: PT Coag (PPP) [Time] 15.6 s High 9.0 - 12.0 s [employer] Work Phone: Comment on above: . Test Performed by [facility] [employer] [facility], [address] [place] [address] [facility] Work Phone: B-2 Glycoprotein (IGA)on Beta-2 Glyco 1 IgA <2.0 U/mL [facility] Work Phone: Comment on above: Interpretive Informa tion: Results equal to or greater than 20 U/mL = POSITIVE Results less than 20 U/mL = NEGATIVE B2 Glycoprotein I (IgM) Abon 10-24-2021 Beta-2 Glyco 1 IgM <1.5 U/mL [facility] Work Phone: Comment on above: Interpretive Informa tion: Results equal to or greater than 20 U/mL = POSITIVE Results less than 20 U/mL = NEGATIVE B2 Glycoprotein I Igg Abon 0 10-24-2021 Beta-2 Glyco 1 IgG <1.4 U/mL [facility] Work Phone: Comment on above: Interpretive Informa tion: Results equal to or greater than 20 U/mL = POSITIVE Results less than 20 U/mL = NEGATIVE Basic Metabolic Panelon 06-2 Anion gap [Moles/Vol] 8 mmol/L Normal 3-13 [facility] Comment on above: Performed By: #### C A19O, LUPUS #### The performing lab is in the report. #### NSEO #### [facility] #### HEMDF, LDH3, BMP3, MG3, PT, CEA2 #### [facility] [address] [place] [address] #### B2GPM, B2GPA, B2GPG #### [address] Calcium [Mass/Vol] 8.8 mg/dL Normal 8.4-10.4 [facility] Comment on above: Performed By: #### C A19O, LUPUS #### The performing lab is in the report. #### NSEO #### [facility] #### HEMDF, LDH3, BMP3, MG3, PT, CEA2 #### [facility] [address] [place] [address] #### B2GPM, B2GPA, B2GPG #### [address] CO2 [Moles/Vol] 25 mmol/L Normal 22-30 [facility] Comment on above: Performed By: #### C A19O, LUPUS #### The performing lab is in the report. #### NSEO #### [facility] #### HEMDF, LDH3, BMP3, MG3, PT, CEA2 #### [facility] [address] [place] [address] #### B2GPM, B2GPA, B2GPG #### [address] Creatinine [Mass/Vol] 0.74 mg/dL Normal 0.52-1.25 [facility] Comment on above: Performed By: #### Eileen A19O, LUPUS #### The performing lab is in the report. #### NSEO #### [facility] #### HEMDF, LDH3, BMP3, MG3, PT, CEA2 #### [facility] [address] [place] [address] #### B2GPM, B2GPA, B2GPG #### [address] eGFR OTHER > 90.0 Normal >60 [facility] Comment on above: Result Comment: KDIG O [...] tubular creatinine secretion. Performed By: #### Eileen BarretoO, LUPUS #### The performing lab is in the report. #### NSEO #### [facility] #### HEMDF, LDH3, BMP3, MG3, PT, CEA2 #### [facility] [address] [place] [address] #### B2GPM, B2GPA, B2GPG #### [address] GFR/1.73 sq M.predicted among blacks MDRD (S/P/Bld) [Vol rate/Area] mL/min/{1.73_m2} Normal >60 [facility] Comment on above: Performed By: #### C A19O, LUPUS #### The performing lab is in the report. #### NSEO #### [facility] #### HEMDF, LDH3, BMP3, MG3, PT, CEA2 #### [facility] [address] [place] [address] #### B2GPM, B2GPA, B2GPG #### [address] Glucose [Mass/Vol] 116 mg/dL High 70-100 [facility] Comment on above: Performed By: #### C A19O, LUPUS #### The performing lab is in the report. #### NSEO #### [facility] #### HEMDF, LDH3, BMP3, MG3, PT, CEA2 #### [facility] [address] [place] [address] #### B2GPM, B2GPA, B2GPG #### [address] Urea nitrogen [Mass/Vol] 19 mg/dL High 7-17 [facility] Comment on above: Performed By: #### C A19O, LUPUS #### The performing lab is in the report. #### NSEO #### [facility] #### HEMDF, LDH3, BMP3, MG3, PT, CEA2 #### [facility] [address] [place] [address] #### B2GPM, B2GPA, B2GPG #### [address] Chloride [Moles/Vol] 107 mmol/L Normal 98-107 [facility] Comment on above: Performed By: #### C A19O, LUPUS #### The performing lab is in the report. #### NSEO #### [facility] #### HEMDF, LDH3, BMP3, MG3, PT, CEA2 #### [facility] [address] [place] [address] #### B2GPM, B2GPA, B2GPG #### [address] Potassium [Moles/Vol] 3.9 mmol/L Normal 3.5-5.1 [facility] Comment on above: Performed By: #### C A19O, LUPUS #### The performing lab is in the report. #### NSEO #### [facility] #### HEMDF, LDH3, BMP3, MG3, PT, CEA2 #### [facility] [address] [place] [address] #### B2GPM, B2GPA, B2GPG #### [address] Sodium [Moles/Vol] 140 mmol/L Normal 135-145 [facility] Comment on above: Performed By: #### C A19O, LUPUS #### The performing lab is in the report. #### NSEO #### [facility] #### HEMDF, LDH3, BMP3, MG3, PT, CEA2 #### [facility] [address] [place] [address] #### B2GPM, B2GPA, B2GPG #### [address] Anion gap [Moles/Vol] 8 mmol/L 3 - 13 mmol/L [facility] Calcium [Mass/Vol] 8.8 mg/dL 8.4 - 10. 4 mg/dL [facility] Chloride [Moles/Vol] 107 mmol/L 98 - 10 7 mmol/L [facility] CO2 [Moles/Vol] 25 mmol/L 22 - 30 mmol/L [facility] Creatinine [Mass/Vol] 0.74 mg/dL 0.52 - 1.25 mg/dL [facility] EGFR IF NonAfrican Montenegrin >90.0 >60 mL/min [facility] Comment on above: KDIGO guidelines pro [...] mg/dL [facility] Test Performed by [facility], [address] [place], [place] [id number] [place] [address] LAB [facility] Beta-2 Glycoprotein I IgAon 10-24-2021 Beta-2 Glycoprotein I IgA < 2.0 Normal [facility] Comment on above: Result Comment: Inte rpretive Information: Results equal to or greater than 20 U/mL = POSITIVE Results less than 20 U/mL = NEGATIVE Performed By: #### C OVAG #### [facility] [address] [place] [address] Beta-2 Glycoprotein I IgGon 10-24-2021 Beta-2 Glycoprotein I IgG < 1.4 Normal [facility] Comment on above: Result Comment: Inte rpretive Information: Results equal to or greater than 20 U/mL = POSITIVE Results less than 20 U/mL = NEGATIVE Performed By: #### C OVAG #### [facility] [address] [place] [address] Beta-2 Glycoprotein I IgMon 10-24-2021 Beta-2 Glycoprotein I IgM < 1.5 Normal [facility] Comment on above: Result Comment: Inte rpretive Information: Results equal to or greater than 20 U/mL = POSITIVE Results less than 20 U/mL = NEGATIVE Performed By: #### C OVAG #### [facility] [address] [place] [address] No Panel Informationon 10-24 [facility] Test Performed by [facility], [address] [place] [address], [place] [address] [facility] Work Phone: PROTEIN C FUNCTIONALon 10-24 Interpretation and review of laboratory results Abnormal [facility] Protein C-Functional 185 % High 83 - 168 % [facility] Comment on above: INTERPRETIVE INFORMA TION: [...] reference intervals for this test in the [facility] ([employer]). Performed by [facility], [address] [facility] [id number] [email or web address], Quiana Castro MD - Lab. Director Protein C, Functionalon 10-06 Protein C, Functional 185 % High 83-168 [facility] Comment on above: Result Comment: INTE [...] reference intervals for this test in the [facility] ([employer]). Performed by [facility], [address] [facility] [id number] [email or web address], Quiana Castro MD - Lab. Director Performed By: #### P T #### [facility] [address] [place] [address] Protein S, Functionalon 10-06 Protein S, Functional 138 % Normal 66-143 [facility] Comment on above: INTERPRETIVE INFORMA TION: [...] reference intervals for this test in the [facility] ([employer]). Performed by [facility], [address] [facility],[place] [id number] [email or web address], Quiana Castro MD - Lab. Director Result [...] reference intervals for this test in the [facility] ([employer]). Performed by [facility], [address] [facility],[place] [id number] [email or web address], Quiana Castro MD - Lab. Director Performed By: #### P T #### [facility] [employer] [facility] [address] [place] [address] Prothrombin Timeon 2 INR 1.2 High 0.9-1.1 [facility] Comment on above: Result Comment: Harry mmended [...] LDH3, BMP3, MG3, PT, CEA2 #### [facility] [address] [place] [address] #### B2GPM, B2GPA, B2GPG #### [address] [phone] PT Coag (PPP) [Time] 12.6 s High 9.0-12.0 [facility] Comment on above: Result Comment: . Performed By: #### C A19O, LUPUS #### The performing lab is in the report. #### NSEO #### [facility] #### HEMDF, LDH3, BMP3, MG3, PT, CEA2 #### [facility] [address] [place] [address] #### B2GPM, B2GPA, B2GPG #### [facility] [address] [place] [address] Protime-INRon 10-24-2021 INR Coag (Bld) [Relative time] 1.2 {INR} High [facility] Comment on above: Recommended Anticoag ulant [...] Interpretation and review of laboratory results Abnormal [facility] PT Coag (PPP) [Time] 12.6 s High 9.0 - 12.0 s [facility] Comment on above: . Test Performed by [facility], [address] [place], [place] [address] [facility] Basic Metabolic Panelon 10-05 Anion gap [Moles/Vol] 10 mmol/L Normal 3-13 [facility] Comment on above: Performed By: #### C A19O, LUPUS #### The performing lab is in the report. #### NSEO #### [facility] #### HEMDF, LDH3, BMP3, MG3, PT, CEA2 #### [place] [address] [place] [address] #### B2GPM, B2GPA, B2GPG #### [address] Calcium [Mass/Vol] 9.6 mg/dL Normal 8.4-10.4 [facility] Comment on above: Performed By: #### C A19O, LUPUS #### The performing lab is in the report. #### NSEO #### [facility] #### HEMDF, LDH3, BMP3, MG3, PT, CEA2 #### [place] [address] [place] [address] #### B2GPM, B2GPA, B2GPG #### [address] CO2 [Moles/Vol] 27 mmol/L Normal 22-30 [facility] Comment on above: Performed By: #### C A19O, LUPUS #### The performing lab is in the report. #### NSEO #### [facility] #### HEMDF, LDH3, BMP3, MG3, PT, CEA2 #### [address] [place] [address] #### B2GPM, B2GPA, B2GPG #### [address] Glucose [Mass/Vol] 109 mg/dL High 70-100 [facility] Comment on above: Performed By: #### C A19O, LUPUS #### The performing lab is in the report. #### NSEO #### [facility] #### HEMDF, LDH3, BMP3, MG3, PT, CEA2 #### [place] [address] [place] [address] #### B2GPM, B2GPA, B2GPG #### [address] Urea nitrogen [Mass/Vol] 18 mg/dL High 7-17 [facility] Comment on above: Performed By: #### C A19O, LUPUS #### The performing lab is in the report. #### NSEO #### [facility] #### HEMDF, LDH3, BMP3, MG3, PT, CEA2 #### [place] [address] [place] [address] #### B2GPM, B2GPA, B2GPG #### [address] [address] Creatinine [Mass/Vol] 0.82 mg/dL Normal 0.52-1.25 [facility] Comment on above: Performed By: #### C A19O, LUPUS #### The performing lab is in the report. #### NSEO #### [facility] #### HEMDF, LDH3, BMP3, MG3, PT, CEA2 #### [place] [address] [place] [address] #### B2GPM, B2GPA, B2GPG #### [address] [address] GFR/1.73 sq M.predicted among blacks MDRD (S/P/Bld) [Vol rate/Area] mL/min/{1.73_m2} Normal >60 [facility] Comment on above: Performed By: #### C A19O, LUPUS #### The performing lab is in the report. #### NSEO #### [facility] #### HEMDF, LDH3, BMP3, MG3, PT, CEA2 #### [place] [address] [place] [address] #### B2GPM, B2GPA, B2GPG #### [address] [address] GFR/1.73 sq M.predicted among non-blacks MDRD (S/P/Bld) [Vol rate/Area] 89.9 mL/min/{1.73_m2} Normal >60 [facility] Comment on above: Result Comment: KDIG O [...] HEMDF, LDH3, BMP3, MG3, PT, CEA2 #### [address] [place] [address] #### B2GPM, B2GPA, B2GPG #### [address] [address] Chloride [Moles/Vol] 104 mmol/L Normal 98-107 [facility] Comment on above: Performed By: #### C A19O, LUPUS #### The performing lab is in the report. #### NSEO #### [facility] #### HEMDF, LDH3, BMP3, MG3, PT, CEA2 #### [address] [place] [address] #### B2GPM, B2GPA, B2GPG #### [address] [address] Potassium [Moles/Vol] 3.9 mmol/L Normal 3.5-5.1 [facility] Comment on above: Performed By: #### C A19O, LUPUS #### The performing lab is in the report. #### NSEO #### [facility] #### HEMDF, LDH3, BMP3, MG3, PT, CEA2 #### [address] [place] [address] #### B2GPM, B2GPA, B2GPG #### [facility] [address] [place] Sodium [Moles/Vol] 142 mmol/L Normal 135-145 [facility] Comment on above: Performed By: #### C A19O, LUPUS #### The performing lab is in the report. #### NSEO #### [facility] #### HEMDF, LDH3, BMP3, MG3, PT, CEA2 #### [facility] [employer] [facility] [address] [place] [address] #### B2GPM, B2GPA, B2GPG #### [facility] [employer] [facility] [address] [place], [place] Anion gap [Moles/Vol] 10 mmol/L 3 - 13 mmol/L [facility] Work Phone: Calcium [Mass/Vol] 9.6 mg/dL 8.4 - 10. 4 mg/dL [facility] Work Phone: [phone] Chloride [Moles/Vol] 104 mmol/L 98 - 10 7 mmol/L [facility] Work Phone: CO2 [Moles/Vol] 27 mmol/L 22 - 30 mmol/L [facility] Work Phone: Creatinine [Mass/Vol] 0.82 mg/dL 0.52 - 1.25 mg/dL [facility] Work Phone: EGFR IF NonAfrican Montenegrin 89.9 mL/min >60 [facility] Work Phone: Comment on above: KDIGO [...] mg/dL High 70 - 100 mg/dL [facility] Work Phone: 222 Interpretation and review of laboratory results Abnormal [facility] Work Phone: 222 Potassium [Moles/Vol] 3.9 mmol/L 3.5 - 5.1 mmol/L [facility] Work Phone: 222 Sodium [Moles/Vol] 142 mmol/L 135 - 145 mmol/L [facility] Work Phone: 222 Urea nitrogen (BldV) [Mass/Vol] 18 mg/dL High 7 - 17 mg/dL [facility] Work Phone: 222 CBC with Auto Differentialon 10-23-2021 Absolute Baso # 0.1 10*3/uL 0.0 - 0.2 10*3/uL [facility] Work Phone: 222 Absolute Neut # 6.6 10*3/uL 1.8 - 7.0 10*3/uL [facility] Work Phone: 222 Basophils/100 WBC (Bld) 1.1 % 0.0 - 2.0 % [facility] Work Phone: 222 Eosinophils (Bld) [#/Vol] 0.4 10*3/uL 0.0 - 0.5 10*3/uL [facility] Work Phone: 222 Eosinophils/100 WBC (Bld) 3.9 % 1.0 - 6.0 % [facility] Work Phone: 222 Granulocytes/100 WBC (Bld) 64.0 % 40.0 - 80.0 % [facility] Work Phone: 222 Hematocrit (Bld) [Volume fraction] 35.1 % Low 40.0 - 52.0 % [facility] Work Phone: 1 Hemoglobin (Bld) [Mass/Vol] 11.6 g/dL Low 13.0 - 18.0 g/dL [facility] Work Phone: 1) 222 Interpretation and review of laboratory results Abnormal [facility] Phone: 1) Lymphocytes (Bld) [#/Vol] 2.6 10*3/uL 1.0 - 4.3 10*3/uL [facility] Work Phone: 1) 222 Lymphocytes/100 WBC (Bld) 25.0 % 20.0 - 40.0 % [facility] Phone: 1 MCH (RBC) [Entitic mass] 28.4 pg 26.0 - 34.0 pg [facility] Phone: MCHC (RBC) [Mass/Vol] 33.1 % 32.0 - 36.0 % [facility] Phone: MCV (RBC) [Entitic vol] 85.9 fL 80.0 - 98.0 fL [facility] Phone: 1) Monocytes (Bld) [#/Vol] 0.6 10*3/uL 0.0 - 0.8 10*3/uL [facility] Phone: 1) 222 Monocytes/100 WBC (Bld) 6.0 % 2.0 - 10.0 % [employer] Phone: Platelet distribution width (Bld) [Ratio] 17.4 % High 11.5 - 14.5 % [facility] Phone: Platelet mean volume (Bld) [Entitic vol] 8.1 fL 7.4 - 12.4 fL [facility] Phone: 1) Comment on above: [facility] is a calculated measurement using platelet volume ratio. Platelets (Bld) [#/Vol] 450 10*3/uL High 140 - 440 10*3/uL [employer] Phone: 1) 222 RBC (Bld) [#/Vol] 4.08 10*6/uL Low 4.40 - 5.9 0 10*6/uL [facility] Work Phone: WBC (Bld) [#/Vol] 10.3 10*3/uL 3.6 - 10.7 10*3/uL [facility] Work Phone: Test Performed by [facility], [address], [place], [place] [id number] [place] [address] LAB [facility] Work Phone: CEAon 10-23-2021 CEA 0.8 ng/mL 0.0 - 3.0 ng/mL [facility] Work Phone: Test Performed by [facility], [address], [place], [place] [id number] [place] [address] LAB [facility] Work Phone: Carcinoembryonic Agon 2021 Carcinoembryonic Ag. 0.8 ng/mL Normal 0.0-3.0 [facility] Comment on above: Performed By: #### C A19O, LUPUS #### The performing lab is in the report. #### NSEO #### [facility] #### HEMDF, LDH3, BMP3, MG3, PT, CEA2 #### [facility] [employer] [facility] [address] [place] [address] #### B2GPM, B2GPA, B2GPG #### [address] [phone] Hemogram w/ Autodiffon 10-23 Abs Baso Cnt 0.1 10*3/uL Normal 0.0-0.2 [facility] Comment on above: Performed By: #### C A19O, LUPUS #### The performing lab is in the report. #### NSEO #### [facility] #### HEMDF, LDH3, BMP3, MG3, PT, CEA2 #### [facility] [address] [place] [address] #### B2GPM, B2GPA, B2GPG #### [address] [phone] Abs Neutrophile Cnt 6.6 10*3/uL Normal 1.8-7.0 [facility] Comment on above: Performed By: #### C A19O, LUPUS #### The performing lab is in the report. #### NSEO #### [facility] #### HEMDF, LDH3, BMP3, MG3, PT, CEA2 #### [facility] [address] [place] [address] #### B2GPM, B2GPA, B2GPG #### [address] [phone] Basophils/100 WBC (Bld) 1.1 % Normal 0.0-2.0 [facility] Comment on above: Performed By: #### C A19O, LUPUS #### The performing lab is in the report. #### NSEO #### [facility] #### HEMDF, LDH3, BMP3, MG3, PT, CEA2 #### [facility] [address] [place] [address] #### B2GPM, B2GPA, B2GPG #### [address] [address] Eosinophils (Bld) [#/Vol] 0.4 10*3/uL Normal 0.0-0.5 [facility] Comment on above: Performed By: #### C A19O, LUPUS #### The performing lab is in the report. #### NSEO #### [facility] #### HEMDF, LDH3, BMP3, MG3, PT, CEA2 #### [address] [place] [address] #### B2GPM, B2GPA, B2GPG #### [address] [address] Eosinophils/100 WBC (Bld) 3.9 % Normal 1.0-6.0 [facility] Comment on above: Performed By: #### C A19O, LUPUS #### The performing lab is in the report. #### NSEO #### [facility] #### HEMDF, LDH3, BMP3, MG3, PT, CEA2 #### [facility] [address] [place] #### B2GPM, B2GPA, B2GPG #### [address] Erythrocyte distribution width (RBC) [Ratio] 17.4 % High 11.5-14.5 [facility] Comment on above: Performed By: #### C A19O, LUPUS #### The performing lab is in the report. #### NSEO #### [facility] #### HEMDF, LDH3, BMP3, MG3, PT, CEA2 #### [facility] [address] [place] #### B2GPM, B2GPA, B2GPG #### [address] Granulocytes/100 WBC (Bld) 64.0 % Normal 40.0-80.0 [facility] Comment on above: Performed By: #### C A19O, LUPUS #### The performing lab is in the report. #### NSEO #### [facility] #### HEMDF, LDH3, BMP3, MG3, PT, CEA2 #### [facility] [address] [place] #### B2GPM, B2GPA, B2GPG #### [address] Hematocrit (Bld) [Volume fraction] 35.1 % Low 40.0-52.0 [facility] Comment on above: Performed By: #### C A19O, LUPUS #### The performing lab is in the report. #### NSEO #### [facility] #### HEMDF, LDH3, BMP3, MG3, PT, CEA2 #### [facility] [address] [place] #### B2GPM, B2GPA, B2GPG #### [address] [phone] Hemoglobin (Bld) [Mass/Vol] 11.6 g/dL Low 13.0-18.0 [facility] Comment on above: Performed By: #### C A19O, LUPUS #### The performing lab is in the report. #### NSEO #### [facility] #### HEMDF, LDH3, BMP3, MG3, PT, CEA2 #### [facility] [address] [place] [address] #### B2GPM, B2GPA, B2GPG #### [address] Lymphocytes (Bld) [#/Vol] 2.6 10*3/uL Normal 1.0-4.3 [facility] Comment on above: Performed By: #### C A19O, LUPUS #### The performing lab is in the report. #### NSEO #### [facility] #### HEMDF, LDH3, BMP3, MG3, PT, CEA2 #### [facility] [address] [place] [address] #### B2GPM, B2GPA, B2GPG #### [address] Lymphocytes/100 WBC (Bld) 25.0 % Normal 20.0-40.0 [facility] Comment on above: Performed By: #### C A19O, LUPUS #### The performing lab is in the report. #### NSEO #### [facility] #### HEMDF, LDH3, BMP3, MG3, PT, CEA2 #### [facility] [address] [place] [address] #### B2GPM, B2GPA, B2GPG #### [address] MCH (RBC) [Entitic mass] 28.4 pg Normal 26.0-34.0 [facility] Comment on above: Performed By: #### C A19O, LUPUS #### The performing lab is in the report. #### NSEO #### [facility] #### HEMDF, LDH3, BMP3, MG3, PT, CEA2 #### [facility] [address] [facility] [place] #### B2GPM, B2GPA, B2GPG #### [address] MCHC 33.1 % Normal 32.0-36.0 [facility] Comment on above: Performed By: #### C A19O, LUPUS #### The performing lab is in the report. #### NSEO #### [facility] #### HEMDF, LDH3, BMP3, MG3, PT, CEA2 #### [facility] [address] [place], [place] #### B2GPM, B2GPA, B2GPG #### [address] MCV (RBC) [Entitic vol] 85.9 fL Normal 80.0-98.0 [facility] Comment on above: Performed By: #### C A19O, LUPUS #### The performing lab is in the report. #### NSEO #### [facility] #### HEMDF, LDH3, BMP3, MG3, PT, CEA2 #### [facility] [address] [place], [place] #### B2GPM, B2GPA, B2GPG #### [address] Monocytes (Bld) [#/Vol] 0.6 10*3/uL Normal 0.0-0.8 [facility] Comment on above: Performed By: #### C A19O, LUPUS #### The performing lab is in the report. #### NSEO #### [facility] #### HEMDF, LDH3, BMP3, MG3, PT, CEA2 #### [facility] [address] [place] #### B2GPM, B2GPA, B2GPG #### [address] Monocytes/100 WBC (Bld) 6.0 % Normal 2.0-10.0 [facility] Comment on above: Performed By: #### C A19O, LUPUS #### The performing lab is in the report. #### NSEO #### [facility] #### HEMDF, LDH3, BMP3, MG3, PT, CEA2 #### [facility] [address] [place] [address] #### B2GPM, B2GPA, B2GPG #### [address] Platelet mean volume (Bld) [Entitic vol] 8.1 fL Normal 7.4-12.4 [facility] Comment on above: Result Comment: MPV is a calculated measurement using platelet volume ratio. Performed By: #### C A19O, LUPUS #### The performing lab is in the report. #### NSEO #### [facility] #### HEMDF, LDH3, BMP3, MG3, PT, CEA2 #### [facility] [address] [place], [place] #### B2GPM, B2GPA, B2GPG #### [address] Platelets (Bld) [#/Vol] 450 10*3/uL High 140-440 [facility] Comment on above: Performed By: #### C A19O, LUPUS #### The performing lab is in the report. #### NSEO #### [facility] #### HEMDF, LDH3, BMP3, MG3, PT, CEA2 #### [facility] [address] [place], [place] #### B2GPM, B2GPA, B2GPG #### [address] RBC (Bld) [#/Vol] 4.08 10*6/uL Low 4.40-5.90 [facility] Comment on above: Performed By: #### C A19O, LUPUS #### The performing lab is in the report. #### NSEO #### [facility] #### HEMDF, LDH3, BMP3, MG3, PT, CEA2 #### [facility] [address] [place] [address] #### B2GPM, B2GPA, B2GPG #### [address] WBC (Bld) [#/Vol] 10.3 10*3/uL Normal 3.6-10.7 [facility] Comment on above: Performed By: #### C A19O, LUPUS #### The performing lab is in the report. #### NSEO #### [facility] #### HEMDF, LDH3, BMP3, MG3, PT, CEA2 #### [place] [address] [place] [address] #### B2GPM, B2GPA, B2GPG #### [address] LDHon 10-23-2021 LDH 136 U/L Normal 120-246 [facility] Comment on above: Performed By: #### C A19O, LUPUS #### The performing lab is in the report. #### NSEO #### [facility] #### HEMDF, LDH3, BMP3, MG3, PT, CEA2 #### [address] [place] [address] #### B2GPM, B2GPA, B2GPG #### [address] [address] Lactate Dehydrogenaseon 10-05 LD 136 U/L 120 - 246 U/L [facility] Work Phone: MRI ABDOMEN WO CONTRASTon Patient Name: ANDREW SIFUENTES Magnetic Resonance Imaging ACCESSION EXAM DATE/TIME PROCEDURE ORDERING PROVIDER [id number] 10/23/2021 11:08 EDT MRI Abdomen w/o Contrast WING SRIVASTAVA CPT code 81620 Reason For Exam (MRI Abdomen w/o Contrast) [...] VLADIMIR Transcribed Date and Time: 10/23/2021 4:36 [facility] Result, Unknown Prov ider - 10/23/2021 Patient Name: ANDREW SIFUENTES Magnetic Resonance Imaging ACCESSION EXAM DATE/TIME PROCEDURE ORDERING PROVIDER [id number] 10/23/2021 11:08 EDT MRI Abdomen w/o Contrast WING SRIVASTAVA CPT code 75700 Reason For Exam (MRI Abdomen w/o Contrast) [...] VLADIMIR Transcribed Date and Time: 10/23/2021 4:36 [facility] Work Phone: MRI ABDOMEN WO CONTRASTOrder ed By: Unknown Result on 10-23-2021 [facility] MRI Abdomen w/o Contraston 0 10-23-2021 MRI Abdomen w/o Contrast Patient [facility]: [id number] ACCESSION EXAM DATE/TIME PROCEDURE ORDERING PROVIDER [id number] 10/23/2021 11:08 EDT MRI Abdomen w/o Contrast WING SRIVASTAVA CPT code 18472 Reason For Exam (MRI Abdomen w/o Contrast) [...] Date and Time: 10/23/2021 4:36 Normal [facility] Magnesiumon 10-23-2021 Magnesium [Mass/Vol] 2.1 mg/dL Normal 1.6-2.3 [facility] Comment on above: Performed By: #### C A19O, LUPUS #### The performing lab is in the report. #### NSEO #### [facility] #### HEMDF, LDH3, BMP3, MG3, PT, CEA2 #### [facility] [address] [place] [address] #### B2GPM, B2GPA, B2GPG #### [address] [address] Magnesium [Mass/Vol] 2.1 mg/dL 1.6 - 2 .3 mg/dL [facility] Work Phone: No Panel Informationon 10-23 Test Performed by [facility], [address] LAB [facility] Work Phone: Prothrombin Timeon 2 INR 1.1 Normal 0.9-1.1 [facility] Comment on above: Result Comment: Harry mmended [...] LDH3, BMP3, MG3, PT, CEA2 #### [facility] [address] [place] [address] #### B2GPM, B2GPA, B2GPG #### [address] [phone] PT Coag (PPP) [Time] 12.2 s High 9.0-12.0 [facility] Comment on above: Result Comment: . Performed By: #### C A19O, LUPUS #### The performing lab is in the report. #### NSEO #### [facility] #### HEMDF, LDH3, BMP3, MG3, PT, CEA2 #### [facility] [address] [place] [address] #### B2GPM, B2GPA, B2GPG #### [facility] [address] [place] [address] Protime-INRon 10-23-2021 INR Coag (Bld) [Relative time] 1.1 {INR} [facility] Work Phone: Comment on above: Recommended [...] Interpretation and review of laboratory results Abnormal [facility] Work Phone: PT Coag (PPP) [Time] 12.2 s High 9.0 - 12.0 s [facility] Work Phone: Comment on above: . Test Performed by [facility], [address] [place], [place] [address] [facility] LAB [facility] Work Phone: Basic Metabolic Panelon 10-05 Calcium [Mass/Vol] 8.9 mg/dL Normal 8.4-10.4 [facility] Comment on above: Performed By: #### P T #### [facility] [address] [place] [address] Glucose [Mass/Vol] 110 mg/dL High 70-100 [facility] Comment on above: Performed By: #### P T #### [facility] [address] [place] [address] Urea nitrogen [Mass/Vol] 14 mg/dL Normal 7-17 [facility] Comment on above: Performed By: #### P T #### [facility] [address] [place] [address] Anion gap [Moles/Vol] 7 mmol/L Normal 3-13 [facility] Comment on above: Performed By: #### P T #### [facility] [address] [place] [address] CO2 [Moles/Vol] 26 mmol/L Normal 22-30 [facility] Comment on above: Performed By: #### P T #### [facility] [address] [place] [address] Creatinine [Mass/Vol] 0.71 mg/dL Normal 0.52-1.25 [facility] Comment on above: Performed By: #### P T #### [facility] [address] [place] [address] eGFR OTHER > 90.0 Normal >60 [facility] Comment on above: Result Comment: KDIG O [...] Performed By: #### P T #### [facility] [address] [place] [address] GFR/1.73 sq M.predicted among blacks MDRD (S/P/Bld) [Vol rate/Area] mL/min/{1.73_m2} Normal >60 [facility] Comment on above: Performed By: #### P T #### [facility] [address] [place] [address] Potassium [Moles/Vol] 3.8 mmol/L Normal 3.5-5.1 [facility] Comment on above: Performed By: #### P T #### [facility] [address] [place] [address] Chloride [Moles/Vol] 106 mmol/L Normal 98-107 [facility] Comment on above: Performed By: #### P T #### [facility] [address] [place] [address] Sodium [Moles/Vol] 139 mmol/L Normal 135-145 [facility] Comment on above: Performed By: #### P T #### [facility] [address] [place] [address] Anion gap [Moles/Vol] 7 mmol/L 3 - 13 mmol/L [facility] Calcium [Mass/Vol] 8.9 mg/dL 8.4 - 10. 4 mg/dL [facility] Chloride [Moles/Vol] 106 mmol/L 98 - 10 7 mmol/L [facility] CO2 [Moles/Vol] 26 mmol/L 22 - 30 mmol/L [facility] Creatinine [Mass/Vol] 0.71 mg/dL 0.52 - 1.25 mg/dL [facility] EGFR IF NonAfrican Montenegrin >90.0 >60 mL/min [facility] Comment on above: KDIGO guidelines pro [...] 10*3/uL [facility] Test Performed by [facility], [address] [facility] Pelvis Wo Contras ton 10-22-2021 Patient Name: ANDREW SIFUENTES Computed Tomography ACCESSION EXAM DATE/TIME PROCEDURE ORDERING PROVIDER [id number] 10/22/2021 13:[address] Abdomen/Pelvis (No SRIVASTAVA, WING PO, No IV) CPT code 90534 Reason For Exam (CT Abdomen/Pelvis (No PO, [...] MD - 10/22/2021 Patient Name: [facility]ENTES [id number] Computed Tomography ACCESSION EXAM DATE/TIME PROCEDURE ORDERING PROVIDER [id number] 10/22/2021 13:[address] Abdomen/Pelvis (No SRIVASTAVA, WING PO, No IV) CPT code 53443 Reason For Exam (CT Abdomen/Pelvis (No PO, [...] Tomography ACCESSION EXAM DATE/TIME PROCEDURE ORDERING PROVIDER [id number] 10/22/2021 13:[address] Abdomen/Pelvis (No SRIVASTAVAWING KESSLER PO, No IV) CPT code 71730 Reason For Exam (CT Abdomen/Pelvis (No PO, [...] Date and Time: 10/22/2021 2:37 Normal [facility] Hemogram w/ Autodiffon 10-22 Abs Baso Cnt 0.1 10*3/uL Normal 0.0-0.2 [facility] Comment on above: Performed By: #### P T #### [facility] [address] [place] [address] Abs Neutrophile Cnt 6.0 10*3/uL Normal 1.8-7.0 [facility] Comment on above: Performed By: #### P T #### [facility] [address] [place] [address] Basophils/100 WBC (Bld) 1.0 % Normal 0.0-2.0 [facility] Comment on above: Performed By: #### P T #### [facility] [address] [place] [address] Eosinophils (Bld) [#/Vol] 0.3 10*3/uL Normal 0.0-0.5 [facility] Comment on above: Performed By: #### P T #### [facility] [address] [place] [address] Eosinophils/100 WBC (Bld) 3.0 % Normal 1.0-6.0 [facility] Comment on above: Performed By: #### P T #### [facility] [address] [place] [address] Erythrocyte distribution width (RBC) [Ratio] 17.1 % High 11.5-14.5 [facility] Comment on above: Performed By: #### P T #### [facility] [address] [place] [address] Granulocytes/100 WBC (Bld) 64.1 % Normal 40.0-80.0 [facility] Comment on above: Performed By: #### P T #### [facility] [address] [place] [address] Hematocrit (Bld) [Volume fraction] 33.4 % Low 40.0-52.0 [facility] Comment on above: Performed By: #### P T #### [facility] [address] [place] [address] Hemoglobin (Bld) [Mass/Vol] 10.9 g/dL Low 13.0-18.0 [facility] Comment on above: Performed By: #### P T #### [facility] [address] [place] [address] Lymphocytes (Bld) [#/Vol] 2.5 10*3/uL Normal 1.0-4.3 [facility] Comment on above: Performed By: #### P T #### [facility] [address] [place] [address] Lymphocytes/100 WBC (Bld) 26.3 % Normal 20.0-40.0 [facility] Comment on above: Performed By: #### P T #### [facility] [address] [place] [address] MCH (RBC) [Entitic mass] 28.2 pg Normal 26.0-34.0 [facility] Comment on above: Performed By: #### P T #### [facility] [address] [place] [address] MCHC 32.7 % Normal 32.0-36.0 [facility] Comment on above: Performed By: #### P T #### [facility] [address] [place] [address] MCV (RBC) [Entitic vol] 86.3 fL Normal 80.0-98.0 [facility] Comment on above: Performed By: #### P T #### [facility] [address] [place] [address] Monocytes (Bld) [#/Vol] 0.5 10*3/uL Normal 0.0-0.8 [facility] Comment on above: Performed By: #### P T #### [facility] [address] [place] [address] Monocytes/100 WBC (Bld) 5.6 % Normal 2.0-10.0 [facility] Comment on above: Performed By: #### P T #### [facility] [address] [place] [address] Platelet mean volume (Bld) [Entitic vol] 7.6 fL Normal 7.4-12.4 [facility] Comment on above: Result Comment: MPV is a calculated measurement using platelet volume ratio. Performed By: #### P T #### [facility] [address] [place] [address] Platelets (Bld) [#/Vol] 369 10*3/uL Normal 140-440 [facility] Comment on above: Performed By: #### P T #### [facility] [address] [place] [address] RBC (Bld) [#/Vol] 3.87 10*6/uL Low 4.40-5.90 [facility] Comment on above: Performed By: #### P T #### [facility] [address] [place] [address] WBC (Bld) [#/Vol] 9.4 10*3/uL Normal 3.6-10.7 [facility] Comment on above: Performed By: #### P T #### [facility] [address] [place] [address] Magnesiumon 10-22-2021 Magnesium [Mass/Vol] 2.0 mg/dL Normal 1.6-2.3 [facility] Comment on above: Performed By: #### P T #### [facility] [address] [place] [address] Magnesium [Mass/Vol] 2.0 mg/dL 1.6 - 2 .3 mg/dL [facility] No Panel Informationon 10-22 Radiology Study observation (narrative) [facility] Work Phone: Test Performed by [facility], [address] [place], [place], [place] [id number] [place] [address] LAB [facility] Prothrombin Timeon 2 INR 1.1 Normal 0.9-1.1 [facility] Comment on above: Result Comment: Harry mmended [...] LDH3, BMP3, MG3, PT, CEA2 #### [facility] [address] [place] [address] #### B2GPM, B2GPA, B2GPG #### [address] [address] PT Coag (PPP) [Time] 11.8 s Normal 9.0-12.0 [facility] Comment on above: Result Comment: . Performed By: #### C A19O, LUPUS #### The performing lab is in the report. #### NSEO #### [facility] #### HEMDF, LDH3, BMP3, MG3, PT, CEA2 #### [facility] [address] [place] [address] #### B2GPM, B2GPA, B2GPG #### [facility] [address] [place] [address] Protime-INRon 10-22-2021 INR Coag (Bld) [Relative time] 1.1 {INR} [facility] Work Phone: Comment on above: Recommended Anticoag [...] [Time] 11.8 s 9.0 - 12.0 s [facility] Work Phone: Comment on above: . Test Performed by [facility], [address] [place], [place] [address] [facility] LAB [facility] Work Phone: VL Ankle Art Brachial Indice s Extremity Bilateralon 10-22-2021 [facility] Ankle Brachial Index Report Patient DO GurpreetB: 1950 Study 10/21/2021 Name: Andrew Gonzalez (71yrs) Date: Age: 71 Account: [id number] Gender: M Loc: 444W BP: Ordering Physician: Shruthi Malik Garage Door Opener Installer: Rody Cross RDMS, RVT Interpreting Physician: Carina Call Location: [facility] Indications: Foot wounds. Originally ordered as a full PVR. Ordering SERVER SERVICE ASSISTANT had to modify the order to [...] supine position. Images were obtained using a [employer] vascular ultrasound machine. Arterial pressure indices: + [...] signed by Carina Call 10/22/2021 13:21 [facility] Carina Call MD - 10/22/2021 [facility] Ankle Brachial Index Report Patient RADHA Sifuentes: 1950 Study 10/21/2021 Name: Andrew Gonzalez (71yrs) Date: Age: 71 Account: [id number] Gender: M Loc: 444W BP: Ordering Physician: Shruthi Malik Garage Door Opener Installer: Rody Cross RDMS, RVT Interpreting Physician: Carina Call Location: [facility] Indications: Foot wounds. Originally ordered as a full PVR. Ordering SERVER SERVICE ASSISTANT had to modify the order to [...] supine position. Images were obtained using a [employer] vascular ultrasound machine. Arterial pressure indices: + [...] electronically signed by Carina Call 10/22/2021 13:21 [facility] Work Phone: [facility] Work Phone: Basic Metabolic Panelon 10-05 Calcium [Mass/Vol] 9.1 mg/dL Normal 8.4-10.4 [facility] Comment on above: Performed By: #### C OVAG #### [facility] [address] [place] [address] Anion gap [Moles/Vol] 6 mmol/L Normal 3-13 [facility] Comment on above: Performed By: #### C OVAG #### [facility] [employer] [facility] [address] [place] [address] CO2 [Moles/Vol] 29 mmol/L Normal 22-30 [facility] Comment on above: Performed By: #### C OVAG #### [facility] [employer] [facility] [address] [place] [address] Creatinine [Mass/Vol] 0.90 mg/dL Normal 0.52-1.25 [facility] Comment on above: Performed By: #### C OVAG #### [facility] [employer] [facility] [address] [place] [address] GFR/1.73 sq M.predicted among blacks MDRD (S/P/Bld) [Vol rate/Area] mL/min/{1.73_m2} Normal >60 [facility] Comment on above: Performed By: #### C OVAG #### [facility] [employer] [facility] [address] [place] [address] GFR/1.73 sq M.predicted among non-blacks MDRD (S/P/Bld) [Vol rate/Area] 86.6 mL/min/{1.73_m2} Normal >60 [facility] Comment on above: Result Comment: KDIG O [...] Performed By: #### C OVAG #### [facility] [address] [place] [address] Glucose [Mass/Vol] 106 mg/dL High 70-100 [facility] Comment on above: Performed By: #### C OVAG #### [facility] [address] [place] [address] Urea nitrogen [Mass/Vol] 18 mg/dL High 7-17 [facility] Comment on above: Performed By: #### C OVAG #### [facility] [address] [place] [address] Chloride [Moles/Vol] 105 mmol/L Normal 98-107 [facility] Comment on above: Performed By: #### C OVAG #### [facility] [address] [place] [address] Potassium [Moles/Vol] 4.3 mmol/L Normal 3.5-5.1 [facility] Comment on above: Performed By: #### C OVAG #### [facility] [address] [place] [address] Sodium [Moles/Vol] 139 mmol/L Normal 135-145 [facility] Comment on above: Performed By: #### C OVAG #### [facility] [address] [place] [address] Anion gap [Moles/Vol] 6 mmol/L 3 - 13 mmol/L [facility] Calcium [Mass/Vol] 9.1 mg/dL 8.4 - [...] mg/dL [facility] Test Performed by [facility], [address] [place], [place] [address] [facility] C-Reactive Proteinon 022 CRP [Mass/Vol] 33.5 mg/L High 0.0-9.9 [facility] Comment on above: Result Comment: . Performed By: #### P T #### [facility] [address] [place] [address] CRP [Mass/Vol] 33.5 mg/L High 0.0 - 9.9 mg/L [facility] Comment on above: . Interpretation and review of laboratory results Abnormal [facility] Performed by [facility], [address], [place], [place] [address] [facility] CR Calcaneus 2+ Views [place] 10-21-2021 CR Calcaneus 2+ Views Left Patient Name: [id number] Radiology ACCESSION EXAM DATE/TIME PROCEDURE ORDERING PROVIDER [id number] 10/21/2021 15:30 EDT CR Calcaneus 2+ Views [id number] -SHRUTHI MALIK Left CPT code 22032 Reason For Exam (CR Calcaneus 2+ Views [...] Date and Time: 10/21/2021 4:33 Normal [facility] CR Chest 1 View Frontalon CR Chest 1 View Frontal Patient Name: ANDREW SIFUENTES Diagnostic Radiology ACCESSION EXAM DATE/TIME PROCEDURE ORDERING PROVIDER [id number] 10/21/2021 08:16 EDT CR Chest 1 View Frontal [id number] MAY BOGGS CPT code 41755 Reason For Exam (CR Chest 1 View [...] Date and Time: 10/21/2021 8:33 Normal [facility] D-Dimer, Innovanceon 022 D-Dimer, Innovance 1.51 mg/L High <0.19-0.50 [facility] Comment on above: Result Comment: Inno saba D-Dimer values of <0.50 mg/L FEU can be used in combination with a pre-test probability model (e.g. Well's) to exclude pulmonary embolism (PE) disease, as well as an aid in the diagnosis of deep vein thrombosis (DVT). Performed By: #### P T #### [facility] [address] [place] [address] D-Dimer, Quantitativeon 10-05 D-Dimer, Quant 1.51 mg/L High <0.19 - 0.50 [facility] Comment on above: Innovance D-Dimer va lues of <0.50 mg/L FEU can be used in combination with a pre-test probability model (e.g. Well's) to exclude pulmonary embolism (PE) disease, as well as an aid in the diagnosis of deep vein thrombosis (DVT). Interpretation and review of laboratory results Abnormal [facility] Test Performed by [facility], [address], [place], [place] [address] [place] [address] LAB [facility] ED Provider Noteon 2 ED Provider Note B [place] [facility] EMERGENCY DEPARTMENT ENCOUNTER Pt Name: Andrew [...] (HCC) ? Kidney stone ? Neuropathy ? HAND ENDBAND CUTTER (ventriculoperitoneal) shunt status SURGICAL HISTORY Past Surgical [...] Respirations (more content not included)... Normal [facility] Hemogramon 10-21-2021 Erythrocyte distribution width (RBC) [Ratio] 17.3 % High 11.5-14.5 [facility] Comment on above: Performed By: #### C OVAG #### [facility] [address] [place] [address] Hematocrit (Bld) [Volume fraction] 33.6 % Low 40.0-52.0 [facility] Comment on above: Performed By: #### C OVAG #### [facility] [address] [facility] [place] [address] Hemoglobin (Bld) [Mass/Vol] 10.9 g/dL Low 13.0-18.0 [facility] Comment on above: Performed By: #### C OVAG #### [facility] [address] [place] [address] MCH (RBC) [Entitic mass] 27.8 pg Normal 26.0-34.0 [facility] Comment on above: Performed By: #### C OVAG #### [facility] [address] [place] [address] MCHC 32.5 % Normal 32.0-36.0 [facility] Comment on above: Performed By: #### C OVAG #### [facility] [address] [place] [address] MCV (RBC) [Entitic vol] 85.6 fL Normal 80.0-98.0 [facility] Comment on above: Performed By: #### C OVAG #### [facility] [address] [place] [address] Platelet mean volume (Bld) [Entitic vol] 7.7 fL Normal 7.4-12.4 [facility] Comment on above: Result Comment: MPV is a calculated measurement using platelet volume ratio. Performed By: #### C OVAG #### [facility] [address] [place] [address] Platelets (Bld) [#/Vol] 404 10*3/uL Normal 140-440 [facility] Comment on above: Performed By: #### C OVAG #### [facility] [address] [place] [address] RBC (Bld) [#/Vol] 3.93 10*6/uL Low 4.40-5.90 [facility] Comment on above: Performed By: #### C OVAG #### [facility] [address] [place] [address] WBC (Bld) [#/Vol] 11.6 10*3/uL High 3.6-10.7 [facility] Comment on above: Performed By: #### C OVAG #### [facility] [address] [place] [address] Hemogram (CBC)on 10-21-2021 Hematocrit (Bld) [Volume fraction] 33.6 % Low 40.0 - 52.0 % [facility] Hem[facility] (Bld) [Mass/Vol] 10.9 g/dL Low 13.0 - 18.0 g/dL [facility] Interpretation and review of laboratory results Abnormal [facility] MCH (RBC) [Entitic mass] 27.8 pg 26.0 - 34.0 pg [facility] MCHC (RBC) [Mass/Vol] 32.5 % 32.0 - 36.0 % [facility] MCV (RBC) [Entitic vol] 85.6 fL [...] 10*3/uL [facility] Test Performed by [facility], [address] [place], [place] [id number] [place] [address] LAB [facility] NM LUNG VENT/PERFUSION (VQ)o n 10-21-2021 Patient Name: ANDREW SIFUENTES Nuclear Medicine ACCESSION EXAM DATE/TIME PROCEDURE ORDERING PROVIDER [id number] 10/21/2021 07:55 EDT NM Pulmonary Perfusion [id number] MAY BOGGS w/ Vent Aerosol CPT code 68864 A9567 Reason For Exam (NM Pulmonary Perfusion [...] Medicine ACCESSION EXAM DATE/TIME PROCEDURE ORDERING PROVIDER [id number] 10/21/2021 07:55 EDT NM Pulmonary Perfusion [id number] -SHAILESHLUCÍA KNOWLESELLE w/ Vent Aerosol CPT code 31793 A9567 Reason For Exam (NM Pulmonary Perfusion [...] JOHN Transcribed Date and Time: 10/21/2021 8:49 [facility] Work Phone: NM LUNG VENT/PERFUSION (VQ)O rdered By: Henry Harvey on 10-21-2021 [facility] Work Phone: NM Pulmonary Perfusion w/ Ve nt Aerosol or Gason 10-21-2021 NM Pulmonary Perfusion w/ Vent Aerosol or Gas Patient Name: ANDREW SIFUENTES Nuclear Medicine ACCESSION EXAM DATE/TIME PROCEDURE ORDERING PROVIDER [id number] 10/21/2021 07:55 EDT NM Pulmonary Perfusion [id number] -SHAILESHLUCÍA KNOWLESELLE w/ Vent Aerosol CPT code 36790 A9567 Reason For Exam (NM Pulmonary Perfusion [...] Date and Time: 10/21/2021 8:49 Normal [facility] No Panel Informationon 10-21 Radiology Study observation (narrative) [facility] Work Phone: Prothrombin Timeon INR 1.1 Normal 0.9-1.1 [facility] Comment on above: Result Comment: Harry mmended [...] Performed By: #### C OVAG #### [facility] [address] [place] [address] PT Coag (PPP) [Time] 11.5 s Normal 9.0-12.0 [facility] Comment on above: Result Comment: . Performed By: #### C OVAG #### [facility] [address] [place] [address] Protime-INRon 10-21-2021 INR Coag (Bld) [Relative time] 1.1 {INR} [facility] Comment on above: Recommended Anticoag ulant [...] [Time] 11.5 s 9.0 - 12.0 s [facility] Comment on above: . Test Performed by [facility], [address] [place], [place] [address] [place] [address] LAB [facility] Retic Count(%)on 10-21-2021 Retic Count(%) 1.6 Normal [facility] Comment on above: Result Comment: Newb orn < 5% Adults 0.5 - 1.5% Performed By: #### P T #### [facility] [address] [place] [address] Reticulocyteson 10-21-[address] Pct 1.6 [facility] Comment on above: Elkin < 5% Adults 0.5 - 1.5% Test Performed by [facility], [address] LAB [facility] Sed Rateon 10-21-2021 Sed Rate 63 mm/h High 0-10 [facility] Comment on above: Performed By: #### P T #### [facility] [address] [place] [address] Sedimentation Rateon 022 Interpretation and review of laboratory results Abnormal [facility] Sed Rate 63 mm/h High 0 - 10 mm/h [facility] Test Performed by [facility], [address] LAB [facility] VL CARMELLA Upr/L Extremity Art 1 -2 Levelson 10-21-2021 VL CARMELLA Upr/L Extremity Art 1-2 Levels Patient Name: ANDREW SIFUENTES Ultrasound ACCESSION EXAM DATE/TIME PROCEDURE ORDERING PROVIDER [id number] 10/21/2021 16:12 EDT VL Upr/L Extremity Art [id number] -SHRUTHI MALIK 1-2 Levels CPT code 70048 Reason For Exam (VL Upr/L Extremity Art 1-2 Levels) both lower legs CARMELLA for both feet wounds. Report [facility] Ankle Brachial Index Report Patient RADHA Sifuentes: 1950 Study 10/21/2021 Name: Andrew Gonzalez (71yrs) Date: Age: 71 Account: [id number] Gender: M Loc: 444W BP: Ordering Physician: Shruthi Malik Garage Door Opener Installer: Rody Cross RDMS, RVT Interpreting Physician: Carina Call Location: [facility] Indications: Foot wounds. Originally ordered as a full PVR. Ordering SERVER SERVICE ASSISTANT had to modify the order to [...] supine position. Images were obtained using a [employer] vascular ultrasound machine. Arterial pressure indices: + [...] CARINA HENNESSY Cardiovascular ACCESSION EXAM DATE/TIME PROCEDURE [id number] 10/21/2021 16:12 EDT VL Upr/L Extremity Art 1-2 Levels CPT code 19189 Reason For Exam (VL Upr/L Extremity Art 1-2 Levels) both lower legs CARMELLA for both feet wounds. Report [facility] Ankle Brachial Index Report Patient RADHA Sifuentes: 1950 Study 10/21/2021 Name: Andrew Gonzalez (71yrs) Date: Age: 71 Account: [id number] Cardiovascular Report Gender: M Loc: 444W BP: Ordering Physician: Shruthi Malik Garage Door Opener Installer: Rody Cross RDMS, RVT Interpreting Physician: Carina Call Location: [facility] Indications: Foot wounds. Originally ordered as a full PVR. Ordering SERVER SERVICE ASSISTANT had to modify the order to [...] in th (more content not included)... Normal [facility] VL LOWER EXTREMITY BILATERAL VENOUS DUPLEXon 10-21-2021 [facility] Lower Extremity Venous Duplex Report Patient DO GurpreetB: 1950 Study 10/21/2021 Name: Andrew Gonzalez (71yrs) Date: Age: 71 Account: [id number] Gender: M Loc: 444 BP: Ordering Physician: May Cash Garage Door Opener Installer: Rody Cross RDMS, RVT Interpreting Physician: Carina [...] supine position. Images were obtained using a [employer] vascular ultrasound machine. Venous flow and imaging: [...] [facility] Carina Call MD - 10/21/2021 [facility] Lower Extremity Venous Duplex Report Patient DO GurpreetB: 1950 Study 10/21/2021 Name: Andrew Gonzalez (71yrs) Date: Age: 71 Account: [id number] Gender: M Loc: 444 BP: Ordering Physician: May Cash Garage Door Opener Installer: Rody Cross RDMS, RVT Interpreting Physician: Carina Call Location: [facility] Indications: Bilateral lower leg edema. CRITICAL RESULTS: A critical finding, was reported to ATTILA Scheerr by Rody Cross , on 10/21/2021 , [...] supine position. Images were obtained using a [employer] vascular ultrasound machine. Venous flow and imaging: [...] + + +----- (more content not included)... [facility] Work Phone: VL LOWER EXTREMITY BILATERAL VENOUS DUPLEXOrdered By: Carina Call on 10-21-2021 [employer] Phone: VL Venous Duplex US Lower Ex t Bilateralon 10-21-2021 VL Venous Duplex US Lower Ext Bilateral Patient Name: ANDREW SIFUENTES Ultrasound ACCESSION EXAM DATE/TIME PROCEDURE ORDERING PROVIDER [id number] 10/21/2021 09:53 EDT VL Venous Duplex US [id number] -MAY CASH Lower Ext Bilateral CPT code 53038 Reason For Exam (VL Venous Duplex US Lower Ext Bilateral) bilateral sqwelling redness Report [facility] Lower Extremity Venous Duplex Report Patient Gurpreet : 1950 Study 10/21/2021 Name: Andrew Gonzalez (71yrs) Date: Age: 71 Account: [id number] Gender: M Loc: 444 BP: Ordering Physician: May Cash Garage Door Opener Installer: Rody Cross RDMS, RVT Interpreting Physician: Jakub, Carina [facility] [...] supine position. Images were obtained using a [employer] vascular ultrasound machine. Venous flow and imaging: [...] + + (more content not included)... Normal [employer] XR CALCANEUS LEFT (MIN 2 VIE WS)on 10-21-2021 Patient Name: ANDREW SIFUENTES Diagnostic Radiology ACCESSION EXAM DATE/TIME PROCEDURE ORDERING PROVIDER [id number] 10/21/2021 15:30 EDT CR Calcaneus 2+ Views [id number] -HELENA, SHRUTHI Left CPT code 55432 Reason For Exam (CR Calcaneus 2+ Views [...] Date and Time: 10/21/2021 4:33 GUY ARMENDARIZ [facility] Alan Wong MD - 10/21/2021 [facility] Name: [id number] Radiology ACCESSION EXAM DATE/TIME PROCEDURE ORDERING PROVIDER [id number] 10/21/2021 15:30 EDT CR Calcaneus 2+ Views [id number] -SHRUTHI MALIK Left CPT code 94163 Reason For Exam (CR Calcaneus 2+ Views [...] Radiology ACCESSION EXAM DATE/TIME PROCEDURE ORDERING PROVIDER [id number] 10/21/2021 08:16 EDT CR Chest 1 View Frontal [id number] MAY BOGGS CPT code 28723 Reason For Exam (CR Chest 1 View [...] OSAMA Transcribed Date and Time: 10/21/2021 8:33 [facility] Chandler MD - 10/21/2021 Patient Name: ANDREW SIFUENTES Diagnostic Radiology ACCESSION EXAM DATE/TIME PROCEDURE ORDERING PROVIDER [id number] 10/21/2021 08:16 EDT CR Chest 1 View Frontal [id number] MAY BOGGS CPT code 38836 Reason For Exam (CR Chest 1 View [...] OSAMA Transcribed Date and Time: 10/21/2021 8:33 [facility] Work Phone: XR Chest 1 VWOrdered By: Natalie Loyd on 10-21-2021 [facility] Work Phone: Basophil percentageon 2021 Chloride [Moles/Vol] 108 mmol/L 98-107 [facility] Work Phone: Glucose [Mass/Vol] 93 mg/dL 74-106 [facility] Work Phone: Potassium [Moles/Vol] 3.9 mmol/L 3.5-5.[address] [facility] Work Phone: Sodium [Moles/Vol] 140 mmol/L 136-145 [facility] Work Phone: WBC (Bld) [#/Vol] 8.7 10*3/uL 4.4-11.0 [facility] Work Phone: Blood erythrocytes count (nu mber/volume)on 10-20-2021 RBC (Bld) [#/Vol] 3.63 10*6/uL 4.6-6.2 [facility] Work Phone: Blood hemoglobin measurement [...] 10-20-2021 MCHC (RBC) [Mass/Vol] 30.9 g/dL 32-36 [facility] Work Phone: No Panel Informationon 10-20 [...] (mass/volume)on 10-20-2021 Calcium [Mass/Vol] 9.1 mg/dL 8.5-10.1 [facility] Work Phone: Serum or plasma creatinine m easurement (mass/volume)on 10-20-2021 Creatinine [Mass/Vol] 0.75 mg/dL 0.70-1.30 [facility] Work Phone: Comment on above: The [...] Institute Work Phone: CNPNon 10-17-2021 CNPN Normal [facility] Absolute lymphocyte counton 09-19-2021 Lymphocytes Auto (Unsp spec) [#/Vol] 1.74 10*3/uL 0.83-4.51 [facility] Work Phone: Basophil percentageon 2021 Basophils/100 WBC (Bld) 0.6 % 0-1 [facility] Work Phone: Bilirubin [Mass/Vol] 0.30 mg/dL 0.20-1.00 [facility] Work Phone: Comment on above: For patients on eltr ombopag therapy, use of Dimension [place] TBIL is not recommended. Chloride [Moles/Vol] 105 mmol/L 98-107 [facility] Work Phone: Eosinophils/100 WBC (Bld) 3.5 % 0-5 [facility] Work Phone: Glucose [Mass/Vol] 91 mg/dL 74-106 [facility] Work Phone: Neutrophils (Bld) [#/Vol] 4.2 10*3/uL 2.0-7.7 [facility] Work Phone: Neutrophils/100 WBC (Bld) 62.6 % 47-70 [facility] Work Phone: Potassium [Moles/Vol] 3.8 mmol/L 3.5-5.1 [facility] Work Phone: Protein [Mass/Vol] 6.3 g/dL 6.4-8.2 [facility] Work Phone: Sodium [Moles/Vol] 139 mmol/L 136-145 [facility] Work Phone: WBC (Bld) [#/Vol] 6.6 10*3/uL 4.4-11.0 [facility] Work Phone: Blood erythrocytes count (nu mber/volume)on 09-19-2021 RBC (Bld) [#/Vol] 3.47 10*6/uL 4.6-6.[address] [facility] Work Phone: Blood hemoglobin measurement (mass/volume)on 09-19-2021 Hemoglobin (Bld) [Mass/Vol] 10.2 g/dL 13.0-16.5 [facility] Work Phone: Blood lymphocytes/100 leukoc yteson 09-19-2021 Lymphocytes/100 WBC (Bld) 26.2 % 19-41 [facility] Work Phone: Blood monocytes/100 leukocyt eson 09-19-2021 Monocytes/100 WBC (Bld) 6.5 % 0-10 [facility] Work Phone: Blood platelet mean volumeon 09-19-2021 [...] Institute Work Phone: Immature granulocytes/100 WBC (Bld) 0.600 [...] 09-19-2021 MCHC (RBC) [Mass/Vol] 31.0 g/dL 32-36 [facility] Work Phone: No Panel Informationon 09-19 [...] (mass/volume)on 09-19-2021 Albumin [Mass/Vol] 2.8 g/dL 3.2-5.0 [facility] Work Phone: Serum or plasma albumin/glob ulin mass ratioon 09-19-2021 Albumin/Globulin [Mass ratio] 0.8 {ratio} 0.9-2.4 [facility] Work Phone: Serum or plasma calcium oral urement (mass/volume)on 09-19-2021 Calcium [Mass/Vol] 9.0 mg/dL 8.5-10.1 [facility] Work Phone: Serum or plasma creatinine m easurement (mass/volume)on 09-19-2021 Creatinine [Mass/Vol] 0.59 mg/dL 0.70-1.30 [facility] Work Phone: Comment on above: The [...] Comment: Speci men Type: BLOOD SPECIMENOrdering Facility: [facility] Address: [address] [place] [address] Performed By: #### 2 4321-2 ####[facility] LABORATORYCLIA [id number] [place] [address] [place] Calcium [Mass/Vol] 8.6 mg/dL Normal 8.5-10.2 [facility] Comment on above: Order Comment: Speci men Type: BLOOD SPECIMENOrdering Facility: [facility] Address: [address] [place] [address] Performed By: #### 2 4321-2 ####[facility] LABORATORYCLIA [id number] [address] OF [facility] Chloride [Moles/Vol] 99 mmol/L Normal 97-105 [facility] Comment on above: Order Comment: Speci men Type: BLOOD SPECIMENOrdering Facility: [facility] Address: [address] [place] [address] Performed By: #### 2 4321-2 ####[facility] LABORATORYCLIA [id number] [address] OF [place] CO2 [Moles/Vol] 29 mmol/L Normal 22-30 [facility] Comment on above: Order Comment: Speci men Type: BLOOD SPECIMENOrdering Facility: [facility] Address: [address] [place] [address] Performed By: #### 2 4321-2 ####[facility]CLIA [id number] [address] OF [facility] Creatinine [Mass/Vol] 0.58 mg/dL Low 0.73-1.22 [facility] Comment on above: Order Comment: Speci men Type: BLOOD SPECIMENOrdering Facility: [facility] Address: [address] [place] [address] Performed By: #### 2 4321-2 ####[facility] LABORATORYCLIA [id number] [address] ESTIMATED GLOMERULAR FILTRATION RATE 106 mL/min/1.73m??? Normal >=60 [facility] Comment on above: Order Comment: Speci men Type: BLOOD SPECIMENOrdering Facility: [facility] Address: [address] [place] [address] Result Comment: Luzmaria mated Glomerular Filtration Rate [...] actual GFR. Performed By: #### 2 4321-2 ####[facility] LABORATORYCLIA [id number] [place] [address] [place] Glucose [Mass/Vol] 101 mg/dL High 74-99 [facility] Comment on above: Order Comment: Speci men Type: BLOOD SPECIMENOrdering Facility: [facility] Address: [address] [place] [address] Result Comment: The [place] [employer] (ADA) [...] 2016.39(Suppl 1). Performed By: #### 2 4321-2 ####[facility] LABORATORYCLIA [id number] [place] [address] [place] Potassium [Moles/Vol] 3.5 mmol/L Low 3.7-5.1 [facility] Comment on above: Order Comment: Shira francia Type: BLOOD SPECIMENOrdering Facility: [facility] Address: [address] [place] [address] Performed By: #### 2 4321-2 ####[facility] LABORATORYCLIA [id number] [place] [address] [place] Sodium [Moles/Vol] 138 mmol/L Normal 136-144 [facility] Comment on above: Order Comment: Speci men Type: BLOOD SPECIMENOrdering Facility: [facility] Address: [address] [place] [address] Performed By: #### 2 4321-2 ####[facility]ORATORYCLIA [id number] [place] [address] [place] Urea nitrogen [Mass/Vol] 11 mg/dL Normal 9-24 [facility] Comment on above: Order Comment: Speci men Type: BLOOD SPECIMENOrdering Facility: [facility] Address: [address] [place] [address] Performed By: #### 2 4321-2 ####[facility] LABORATORYCLIA [id number] [address] [place] CASE MANAGEMon 08-19-2021 CASE MANAGEM Normal [facility] CBC W Auto Differential pane l (Bld)on 08-19-2021 Basophils (Bld) [#/Vol] 0.03 10*3/uL Normal <0.11 [facility] Comment on above: Order Comment: Speci men Type: BLOOD SPECIMENOrdering Facility: [facility] Address: [address] [place] [address] Performed By: #### 5 7021-8 ####[facility]ORATORYCLIA [id number] [address] [place] Basophils/100 WBC (Bld) 0.4 % Normal [facility] Comment on above: Order Comment: Speci men Type: BLOOD SPECIMENOrdering Facility: [facility] Address: [address] [place] [address] Performed By: #### 5 7021-8 ####[facility]ORATORYCLIA [id number] [address] [place] Differential cell count method Nom (Bld) Auto Normal [facility] Comment on above: Order Comment: Speci men Type: BLOOD SPECIMENOrdering Facility: [facility] Address: [address] [place] [address] Performed By: #### 5 7021-8 ####[facility]ORATORYCLIA [id number] [place] [address] [place] Eosinophils (Bld) [#/Vol] 0.24 10*3/uL Normal <0.46 [facility] Comment on above: Order Comment: Speci men Type: BLOOD SPECIMENOrdering Facility: [facility] Address: [address] [place] [address] Performed By: #### 5 7021-8 ####[facility]ORATORYCLIA [id number] [address] STATES [facility] Eosinophils/100 WBC (Bld) 3.1 % Normal [facility] Comment on above: Order Comment: Speci men Type: BLOOD SPECIMENOrdering Facility: [facility] Address: [address] [place] [address] Performed By: #### 5 7021-8 ####[facility]ORATORYCLIA [id number] [address] Erythrocyte distribution width (RBC) [Ratio] 17.5 % High 11.5-15.0 [facility] Comment on above: Order Comment: Speci men Type: BLOOD SPECIMENOrdering Facility: [facility] Address: [address] [place] [address] Performed By: #### 5 7021-8 ####[facility]ORATORYCLIA [id number] [address] Hematocrit (Bld) [Volume fraction] 30.2 % Low 39.0-51.0 [facility] Comment on above: Order Comment: Speci men Type: BLOOD SPECIMENOrdering Facility: [facility] Address: [address] [place] [address] Performed By: #### 5 7021-8 ####[facility]ORATORYCLIA [id number] [address] [place] Hemoglobin (Bld) [Mass/Vol] 9.6 g/dL Low 13.0-17.0 [facility] Comment on above: Order Comment: Speci men Type: BLOOD SPECIMENOrdering Facility: [facility] Address: [address] [place] [address] Performed By: #### 5 7021-8 ####[facility]ORATORYCLIA [id number] [address] OF [place] IMMATURE GRAN % 0.4 % Normal [facility] Comment on above: Order Comment: Speci men Type: BLOOD SPECIMENOrdering Facility: [facility] Address: [address] [place] [address] Performed By: #### 5 7021-8 ####[facility]ORATORYCLIA [id number] [address] IMMATURE GRAN ABS 0.03 k/uL Normal <0.10 [facility] Comment on above: Order Comment: Speci men Type: BLOOD SPECIMENOrdering Facility: [facility] Address: [address] [place] [address] Performed By: #### 5 7021-8 ####[facility]ORATORYCLIA [id number] [address] Lymphocytes (Bld) [#/Vol] 1.71 10*3/uL Normal 1.00-4.00 [facility] Comment on above: Order Comment: Speci men Type: BLOOD SPECIMENOrdering Facility: [facility] Address: [address] [place] [address] Performed By: #### 5 7021-8 ####[facility] LABORATORYCLIA [id number] [address] Lymphocytes/100 WBC (Bld) 22.2 % Normal [facility] Comment on above: Order Comment: Speci men Type: BLOOD SPECIMENOrdering Facility: [facility] Address: [address] [place] [address] Performed By: #### 5 7021-8 ####[facility] LABORATORYCLIA [id number] [address] MCH (RBC) [Entitic mass] 29.4 pg Normal 26.0-34.0 [facility] Comment on above: Order Comment: Speci men Type: BLOOD SPECIMENOrdering Facility: [facility] Address: [address] [place] [address] Performed By: #### 5 7021-8 ####[facility] LABORATORYCLIA [id number] [address] MCHC (RBC) [Mass/Vol] 31.8 g/dL Normal 30.5-36.0 [facility] Comment on above: Order Comment: Speci men Type: BLOOD SPECIMENOrdering Facility: [facility] Address: [address] [place] [address] Performed By: #### 5 7021-8 ####[facility] LABORATORYCLIA [id number] [address] [place] MCV (RBC) [Entitic vol] 92.6 fL Normal 80.0-100.0 [facility] Comment on above: Order Comment: Speci men Type: BLOOD SPECIMENOrdering Facility: [facility] Address: [address] [place] [address] Performed By: #### 5 7021-8 ####[facility] LABORATORYCLIA [id number] [address] [place] Monocytes (Bld) [#/Vol] 0.50 10*3/uL Normal <0.87 [facility] Comment on above: Order Comment: Speci men Type: BLOOD SPECIMENOrdering Facility: [facility] Address: [address] [place] [address] Performed By: #### 5 7021-8 ####[facility] LABORATORYCLIA [id number] [address] Monocytes/100 WBC (Bld) 6.5 % Normal [facility] Comment on above: Order Comment: Speci men Type: BLOOD SPECIMENOrdering Facility: [facility] Address: [address] [place] [address] Performed By: #### 5 7021-8 ####[facility] LABORATORYCLIA [id number] [address] [place] Neutrophils (Bld) [#/Vol] 5.20 10*3/uL Normal 1.45-7.50 [facility] Comment on above: Order Comment: Speci men Type: BLOOD SPECIMENOrdering Facility: [facility] Address: [address] [place] [address] Performed By: #### 5 7021-8 ####[facility] LABORATORYCLIA [id number] [address] Neutrophils/100 WBC (Bld) 67.4 % Normal [facility] Comment on above: Order Comment: Speci men Type: BLOOD SPECIMENOrdering Facility: [facility] Address: [address] [place] [address] Performed By: #### 5 7021-8 ####[facility]ORATORYCLIA [id number] [address] [place] Nucleated RBC (Bld) [#/Vol] 10*3/uL Normal <0.01 [facility] Comment on above: Order Comment: Speci men Type: BLOOD SPECIMENOrdering Facility: [facility] Address: [address] [place] [address] Performed By: #### 5 7021-8 ####[facility]ORATORYCLIA [id number] [address] Nucleated RBC/100 WBC (Bld) [Ratio] 0.0 /100 WBC Normal [facility] Comment on above: Order Comment: Speci men Type: BLOOD SPECIMENOrdering Facility: [facility] Address: [address] [place] [address] Performed By: #### 5 7021-8 ####[facility]ORATORYCLIA [id number] [address] [place] Platelet mean volume (Bld) [Entitic vol] 8.9 fL Low 9.0-12.7 [facility] Comment on above: Order Comment: Speci men Type: BLOOD SPECIMENOrdering Facility: [facility] Address: [address] [place] [address] Performed By: #### 5 7021-8 ####[facility]ORATORYCLIA [id number] [address] [place] Platelets (Bld) [#/Vol] 408 10*3/uL High 150-400 [facility] Comment on above: Order Comment: Speci men Type: BLOOD SPECIMENOrdering Facility: [facility] Address: [address] [place] [address] Performed By: #### 5 7021-8 ####[facility] LABORATORYCLIA [id number] [address] OF [facility] RBC (Bld) [#/Vol] 3.26 10*6/uL Low 4.20-6.00 [facility] Comment on above: Order Comment: Speci men Type: BLOOD SPECIMENOrdering Facility: [facility] Address: [address] [place] [address] Performed By: #### 5 7021-8 ####[facility]ORATORYCLIA [id number] [address] OF [facility] WBC (Bld) [#/Vol] 7.71 10*3/uL Normal 3.70-11.00 [facility] Comment on above: Order Comment: Speci men Type: BLOOD SPECIMENOrdering Facility: [facility] Address: [address] [place] [address] Performed By: #### 5 7021-8 ####[facility]ORATORYCLIA [id number] [address] [place] CNDSon 08-19-2021 CNDS Normal [facility] CONSULT PROGon 08-19-2021 CONSULT PROG Normal [facility] THERAPY NTon 08-19-2021 THERAPY NT Normal [facility] Basic metabolic 2000 panelon 08-18-2021 Anion gap [Moles/Vol] 11 mmol/L Normal 9-18 [facility] Comment on above: Order Comment: Speci men Type: BLOOD SPECIMENOrdering Facility: [facility] Address: [address] [place] [address] Performed By: #### 2 4321-2 ####[facility]ORATORYCLIA [id number] [address] Calcium [Mass/Vol] 8.6 mg/dL Normal 8.5-10.2 [facility] Comment on above: Order Comment: Speci men Type: BLOOD SPECIMENOrdering Facility: [facility] Address: [address] [place] [address] Performed By: #### 2 4321-2 ####[facility]ORATORYCLIA [id number] [address] [place] Chloride [Moles/Vol] 98 mmol/L Normal 97-105 [facility] Comment on above: Order Comment: Speci men Type: BLOOD SPECIMENOrdering Facility: [facility] Address: [address] [place] [address] Performed By: #### 2 4321-2 ####[facility]ORATORYCLIA [id number] [place] [address] [place] CO2 [Moles/Vol] 28 mmol/L Normal 22-30 [facility] Comment on above: Order Comment: Speci men Type: BLOOD SPECIMENOrdering Facility: [facility] Address: [address] [place] [address] Performed By: #### 2 4321-2 ####[facility]ORATORYCLIA [id number] [address] STATES OF [facility] Creatinine [Mass/Vol] 0.56 mg/dL Low 0.73-1.22 [facility] Comment on above: Order Comment: Speci men Type: BLOOD SPECIMENOrdering Facility: [facility] Address: [address] [place] [address] Performed By: #### 2 4321-2 ####[facility]ORATORYCLIA [id number] [address] ESTIMATED GLOMERULAR FILTRATION RATE 107 mL/min/1.73m??? Normal >=60 [facility] Comment on above: Order Comment: Speci men Type: BLOOD SPECIMENOrdering Facility: [facility] Address: [address] [place] [address] Result Comment: Luzmaria mated Glomerular Filtration Rate [...] actual GFR. Performed By: #### 2 4321-2 ####[facility] LABORATORYCLIA [id number] [place] [address] [place] Glucose [Mass/Vol] 113 mg/dL High 74-99 [facility] Comment on above: Order Comment: Shira feldman Type: BLOOD SPECIMENOrdering Facility: [facility] Address: [address] [place] [address] Result Comment: The [place] [employer] (ADA) [...] 2016.39(Suppl 1). Performed By: #### 2 4321-2 ####[facility]ORATORYCLIA [id number] [place] [address] [place] Potassium [Moles/Vol] 3.5 mmol/L Low 3.7-5.1 [facility] Comment on above: Order Comment: Shira feldman Type: BLOOD SPECIMENOrdering Facility: [facility] Address: [address] [address] Performed By: #### 2 4321-2 ####[facility]ORATORYCLIA [id number] [place] [address] [place] Sodium [Moles/Vol] 137 mmol/L Normal 136-144 [facility] Comment on above: Order Comment: Shira feldman Type: BLOOD SPECIMENOrdering Facility: [facility] Address: [address] [address] Performed By: #### 2 4321-2 ####[facility]STERCLIA [id number] [address] [place] Urea nitrogen [Mass/Vol] 10 mg/dL Normal 9-24 [facility] Comment on above: Order Comment: Speci men Type: BLOOD SPECIMENOrdering Facility: [facility] Address: [address] [place] [address] Performed By: #### 2 4321-2 ####[facility]ORATORYCLIA [id number] [address] [place] CBC W Auto Differential pane l (Bld)on 08-18-2021 Basophils (Bld) [#/Vol] 10*3/uL Normal <0.11 [facility] Comment on above: Order Comment: Speci men Type: BLOOD SPECIMENOrdering Facility: [facility] Address: [address] [place] [address] Performed By: #### 5 7021-8 ####[facility]ORATORYCLIA [id number] [address] [place] Basophils/100 WBC (Bld) 0.3 % Normal [facility] Comment on above: Order Comment: Speci men Type: BLOOD SPECIMENOrdering Facility: [facility] Address: [address] [place] [address] Performed By: #### 5 7021-8 ####[facility]ORATORYCLIA [id number] [address] Differential cell count method Nom (Bld) Auto Normal [facility] Comment on above: Order Comment: Speci men Type: BLOOD SPECIMENOrdering Facility: [facility] Address: [address] [place] [address] Performed By: #### 5 7021-8 ####[facility]ORATORYCLIA [id number] [address] [place] Eosinophils (Bld) [#/Vol] 0.37 10*3/uL Normal <0.46 [facility] Comment on above: Order Comment: Speci men Type: BLOOD SPECIMENOrdering Facility: [facility] Address: [address] [place] [address] Performed By: #### 5 7021-8 ####[facility]ORATORYCLIA [id number] [address] Eosinophils/100 WBC (Bld) 4.8 % Normal [facility] Comment on above: Order Comment: Speci men Type: BLOOD SPECIMENOrdering Facility: [facility] Address: [address] [place] [address] Performed By: #### 5 7021-8 ####[facility] LABORATORYCLIA [id number] [address] Erythrocyte distribution width (RBC) [Ratio] 17.5 % High 11.5-15.0 [facility] Comment on above: Order Comment: Speci men Type: BLOOD SPECIMENOrdering Facility: [facility] Address: [address] [place] [address] Performed By: #### 5 7021-8 ####[facility]ORATORYCLIA [id number] [address] Hematocrit (Bld) [Volume fraction] 30.2 % Low 39.0-51.0 [facility] Comment on above: Order Comment: Speci men Type: BLOOD SPECIMENOrdering Facility: [facility] Address: [address] [place] [address] Performed By: #### 5 7021-8 ####[facility]ORATORYCLIA [id number] [address] Hemoglobin (Bld) [Mass/Vol] 9.5 g/dL Low 13.0-17.0 [facility] Comment on above: Order Comment: Speci men Type: BLOOD SPECIMENOrdering Facility: [facility] Address: [address] [place] [address] Performed By: #### 5 7021-8 ####[facility]ORATORYCLIA [id number] [address] [place] IMMATURE GRAN % 0.4 % Normal [facility] Comment on above: Order Comment: Speci men Type: BLOOD SPECIMENOrdering Facility: [facility] Address: [address] [place] [address] Performed By: #### 5 7021-8 ####[facility]ORATORYCLIA [id number] [address] STATES OF [facility] IMMATURE GRAN ABS 0.03 k/uL Normal <0.10 [facility] Comment on above: Order Comment: Speci men Type: BLOOD SPECIMENOrdering Facility: [facility] Address: [address] [place] [address] Performed By: #### 5 7021-8 ####[facility]ORATORYCLIA [id number] [address] Lymphocytes (Bld) [#/Vol] 1.85 10*3/uL Normal 1.00-4.00 [facility] Comment on above: Order Comment: Speci men Type: BLOOD SPECIMENOrdering Facility: [facility] Address: [address] [place] [address] Performed By: #### 5 7021-8 ####[facility]ORATORYCLIA [id number] [address] Lymphocytes/100 WBC (Bld) 23.8 % Normal [facility] Comment on above: Order Comment: Speci men Type: BLOOD SPECIMENOrdering Facility: [facility] Address: [address] [place] [address] Performed By: #### 5 7021-8 ####[facility]ORATORYCLIA [id number] [address] MCH (RBC) [Entitic mass] 29.5 pg Normal 26.0-34.0 [facility] Comment on above: Order Comment: Speci men Type: BLOOD SPECIMENOrdering Facility: [facility] Address: [address] [place] [address] Performed By: #### 5 7021-8 ####[facility]ORATORYCLIA [id number] [address] [place] MCHC (RBC) [Mass/Vol] 31.5 g/dL Normal 30.5-36.0 [facility] Comment on above: Order Comment: Speci men Type: BLOOD SPECIMENOrdering Facility: [facility] Address: [address] [place] [address] Performed By: #### 5 7021-8 ####[facility]ORATORYCLIA [id number] [address] [place] MCV (RBC) [Entitic vol] 93.8 fL Normal 80.0-100.0 [facility] Comment on above: Order Comment: Speci men Type: BLOOD SPECIMENOrdering Facility: [facility] Address: [address] [place] [address] Performed By: #### 5 7021-8 ####[facility]ORATORYCLIA [id number] [address] STATES [facility] Monocytes (Bld) [#/Vol] 0.49 10*3/uL Normal <0.87 [facility] Comment on above: Order Comment: Speci men Type: BLOOD SPECIMENOrdering Facility: [facility] Address: [address] [place] [address] Performed By: #### 5 7021-8 ####[facility]ORATORYCLIA [id number] [address] Monocytes/100 WBC (Bld) 6.3 % Normal [facility] Comment on above: Order Comment: Speci men Type: BLOOD SPECIMENOrdering Facility: [facility] Address: [address] [place] [address] Performed By: #### 5 7021-8 ####[facility]ORATORYCLIA [id number] [address] [place] Neutrophils (Bld) [#/Vol] 5.00 10*3/uL Normal 1.45-7.50 [facility] Comment on above: Order Comment: Speci men Type: BLOOD SPECIMENOrdering Facility: [facility] Address: [address] [place] [address] Performed By: #### 5 7021-8 ####[facility]ORATORYCLIA [id number] [address] Neutrophils/100 WBC (Bld) 64.4 % Normal [facility] Comment on above: Order Comment: Speci men Type: BLOOD SPECIMENOrdering Facility: [facility] Address: [address] [place] [address] Performed By: #### 5 7021-8 ####[facility]ORATORYCLIA [id number] [address] [place] Nucleated RBC (Bld) [#/Vol] 10*3/uL Normal <0.01 [facility] Comment on above: Order Comment: Speci men Type: BLOOD SPECIMENOrdering Facility: [facility] Address: [address] [place] [address] Performed By: #### 5 7021-8 ####[facility]ORATORYCLIA [id number] [address] Nucleated RBC/100 WBC (Bld) [Ratio] 0.0 /100 WBC Normal [facility] Comment on above: Order Comment: Speci men Type: BLOOD SPECIMENOrdering Facility: [facility] Address: [address] [place] [address] Performed By: #### 5 7021-8 ####[facility]ORATORYCLIA [id number] [address] [place] Platelet mean volume (Bld) [Entitic vol] 9.1 fL Normal 9.0-12.7 [facility] Comment on above: Order Comment: Speci men Type: BLOOD SPECIMENOrdering Facility: [facility] Address: [address] [place] [address] Performed By: #### 5 7021-8 ####[facility]ATORYCLIA [id number] [address] [place] Platelets (Bld) [#/Vol] 391 10*3/uL Normal 150-400 [facility] Comment on above: Order Comment: Speci men Type: BLOOD SPECIMENOrdering Facility: [facility] Address: [address] [place] [address] Performed By: #### 5 7021-8 ####[facility]ORATORYCLIA [id number] [address] [place] RBC (Bld) [#/Vol] 3.22 10*6/uL Low 4.20-6.00 [facility] Comment on above: Order Comment: Speci men Type: BLOOD SPECIMENOrdering Facility: [facility] Address: [address] [place] [address] Performed By: #### 5 7021-8 ####[facility]ORATORYCLIA [id number] [address] OF [facility] WBC (Bld) [#/Vol] 7.76 10*3/uL Normal 3.70-11.00 [facility] Comment on above: Order Comment: Speci men Type: BLOOD SPECIMENOrdering Facility: [facility] Address: [address] [place] [address] Performed By: #### 5 7021-8 ####[facility]ORATORYCLIA [id number] [address] OF [facility] CONSULT PROGon 08-18-2021 CONSULT PROG Normal [facility] CASE MANAGEMon 08-17-2021 CASE MANAGEM Normal [facility] CBC W Auto Differential pane l (Bld)on 08-17-2021 Basophils (Bld) [#/Vol] 0.04 10*3/uL Normal <0.11 [facility] Comment on above: Order Comment: Speci men Type: BLOOD SPECIMENOrdering Facility: [facility] Address: [address] [place] [address] Performed By: #### 5 7021-8 ####[facility]ORATORYCLIA [id number] [address] [place] Basophils/100 WBC (Bld) 0.5 % Normal [facility] Comment on above: Order Comment: Speci men Type: BLOOD SPECIMENOrdering Facility: [facility] Address: [address] [place] [address] Performed By: #### 5 7021-8 ####[facility]ORATORYCLIA [id number] [address] Differential cell count method Nom (Bld) Auto Normal [facility] Comment on above: Order Comment: Speci men Type: BLOOD SPECIMENOrdering Facility: [facility] Address: [address] [place] [address] Performed By: #### 5 7021-8 ####[facility]ORATORYCLIA [id number] [address] Eosinophils (Bld) [#/Vol] 0.31 10*3/uL Normal <0.46 [facility] Comment on above: Order Comment: Speci men Type: BLOOD SPECIMENOrdering Facility: [facility] Address: [address] [place] [address] Performed By: #### 5 7021-8 ####[facility]ORATORYCLIA [id number] [address] Eosinophils/100 WBC (Bld) 3.7 % Normal [facility] Comment on above: Order Comment: Speci men Type: BLOOD SPECIMENOrdering Facility: [facility] Address: [address] [place] [address] Performed By: #### 5 7021-8 ####[facility]ORATORYCLIA [id number] [address] Erythrocyte distribution width (RBC) [Ratio] 17.4 % High 11.5-15.0 [facility] Comment on above: Order Comment: Speci men Type: BLOOD SPECIMENOrdering Facility: [facility] Address: [address] [place] [address] Performed By: #### 5 7021-8 ####[facility]ORATORYCLIA [id number] [address] [place] Hematocrit (Bld) [Volume fraction] 30.6 % Low 39.0-51.0 [facility] Comment on above: Order Comment: Speci men Type: BLOOD SPECIMENOrdering Facility: [facility] Address: [address] [place] [address] Performed By: #### 5 7021-8 ####[facility]ORATORYCLIA [id number] [address] STATES OF [facility] Hemoglobin (Bld) [Mass/Vol] 9.6 g/dL Low 13.0-17.0 [facility] Comment on above: Order Comment: Speci men Type: BLOOD SPECIMENOrdering Facility: [facility] Address: [address] [place] [address] Performed By: #### 5 7021-8 ####[facility]ORATORYCLIA [id number] [address] [place] IMMATURE GRAN % 0.2 % Normal [facility] Comment on above: Order Comment: Speci men Type: BLOOD SPECIMENOrdering Facility: [facility] Address: [address] [place] [address] Performed By: #### 5 7021-8 ####[facility]ORATORYCLIA [id number] [address] IMMATURE GRAN ABS <0.03 Normal <0.10 [facility] Comment on above: Order Comment: Speci men Type: BLOOD SPECIMENOrdering Facility: [facility] Address: [address] [place] [address] Performed By: #### 5 7021-8 ####[facility]ORATORYCLIA [id number] [address] [place] Lymphocytes (Bld) [#/Vol] 1.66 10*3/uL Normal 1.00-4.00 [facility] Comment on above: Order Comment: Speci men Type: BLOOD SPECIMENOrdering Facility: [facility] Address: [address] [place] [address] Performed By: #### 5 7021-8 ####[facility]ORATORYCLIA [id number] [address] Lymphocytes/100 WBC (Bld) 19.9 % Normal [facility] Comment on above: Order Comment: Speci men Type: BLOOD SPECIMENOrdering Facility: [facility] Address: [address] [place] [address] Performed By: #### 5 7021-8 ####[facility]ORATORYCLIA [id number] [address] MCH (RBC) [Entitic mass] 28.9 pg Normal 26.0-34.0 [facility] Comment on above: Order Comment: Speci men Type: BLOOD SPECIMENOrdering Facility: [facility] Address: [address] [place] [address] Performed By: #### 5 7021-8 ####[facility] LABORATORYCLIA [id number] [address] [place] MCHC (RBC) [Mass/Vol] 31.4 g/dL Normal 30.5-36.0 [facility] Comment on above: Order Comment: Speci men Type: BLOOD SPECIMENOrdering Facility: [facility] Address: [address] [place] [address] Performed By: #### 5 7021-8 ####[facility] LABORATORYCLIA [id number] [address] MCV (RBC) [Entitic vol] 92.2 fL Normal 80.0-100.0 [facility] Comment on above: Order Comment: Speci men Type: BLOOD SPECIMENOrdering Facility: [facility] Address: [address] [place] [address] Performed By: #### 5 7021-8 ####[facility] LABORATORYCLIA [id number] [address] Monocytes (Bld) [#/Vol] 0.52 10*3/uL Normal <0.87 [facility] Comment on above: Order Comment: Speci men Type: BLOOD SPECIMENOrdering Facility: [facility] Address: [address] [address] Performed By: #### 5 7021-8 ####[facility]ORATORYCLIA [id number] [address] [place] Monocytes/100 WBC (Bld) 6.2 % Normal [facility] Comment on above: Order Comment: Speci men Type: BLOOD SPECIMENOrdering Facility: [facility] Address: [address] [place] [address] Performed By: #### 5 7021-8 ####[facility] LABORATORYCLIA [id number] [place] [address] [place] Neutrophils (Bld) [#/Vol] 5.78 10*3/uL Normal 1.45-7.50 [facility] Comment on above: Order Comment: Speci men Type: BLOOD SPECIMENOrdering Facility: [facility] Address: [address] [place] [address] Performed By: #### 5 7021-8 ####[facility] LABORATORYCLIA [id number] [address] STATES [facility] Neutrophils/100 WBC (Bld) 69.5 % Normal [facility] Comment on above: Order Comment: Speci men Type: BLOOD SPECIMENOrdering Facility: [facility] Address: [address] [place] [address] Performed By: #### 5 7021-8 ####[facility]ORATORYCLIA [id number] [address] [place] Nucleated RBC (Bld) [#/Vol] 10*3/uL Normal <0.01 [facility] Comment on above: Order Comment: Speci men Type: BLOOD SPECIMENOrdering Facility: [facility] Address: [address] [place] [address] Performed By: #### 5 7021-8 ####[facility]ATORYCLIA [id number] [address] [place] Nucleated RBC/100 WBC (Bld) [Ratio] 0.0 /100 WBC Normal [facility] Comment on above: Order Comment: Speci men Type: BLOOD SPECIMENOrdering Facility: [facility] Address: [address] [place] [address] Performed By: #### 5 7021-8 ####[facility] LABORATORYCLIA [id number] [address] [place] Platelet mean volume (Bld) [Entitic vol] 9.2 fL Normal 9.0-12.7 [facility] Comment on above: Order Comment: Speci men Type: BLOOD SPECIMENOrdering Facility: [facility] Address: [address] [place], [place] [phone] Performed By: #### 5 7021-8 ####[facility] LABORATORYCLIA [id number] [address] [place] Platelets (Bld) [#/Vol] 379 10*3/uL Normal 150-400 [facility] Comment on above: Order Comment: Speci men Type: BLOOD SPECIMENOrdering Facility: [facility] Address: [address] [place] [address] Performed By: #### 5 7021-8 ####[facility]ORATORYCLIA [id number] [place] [address] [place] RBC (Bld) [#/Vol] 3.32 10*6/uL Low 4.20-6.00 [facility] Comment on above: Order Comment: Speci men Type: BLOOD SPECIMENOrdering Facility: [facility] Address: [address] [place], [place] [phone] Performed By: #### 5 7021-8 ####[facility] LABORATORYCLIA [id number] [place] [address] [place] WBC (Bld) [#/Vol] 8.33 10*3/uL Normal 3.70-11.00 [facility] Comment on above: Order Comment: Speci men Type: BLOOD SPECIMENOrdering Facility: [facility] Address: [address] [place] [address] Performed By: #### 5 7021-8 ####[facility]ORATORYCLIA [id number] [place] [address] [place] CONSULT PROGon 08-17-2021 CONSULT PROG Normal [facility] NUTRITIONon 08-17-2021 NUTRITION Normal [facility] Basic metabolic 2000 panelon 08-16-2021 Anion gap [Moles/Vol] 14 mmol/L Normal 9-18 [facility] Comment on above: Order Comment: Speci men Type: BLOOD SPECIMENOrdering Facility: [facility] Address: [address] [place] [address] Performed By: #### 2 4321-2, ####[facility]ORATORYCLIA [id number] [place] [address] [place] Calcium [Mass/Vol] 8.8 mg/dL Normal 8.5-10.2 [facility] Comment on above: Order Comment: Speci men Type: BLOOD SPECIMENOrdering Facility: [facility] Address: [address] [place] [address] Performed By: #### 2 4321-2, ####[facility]ORATORYCLIA [id number] [place] [address] [place] Chloride [Moles/Vol] 97 mmol/L Normal 97-105 [facility] Comment on above: Order Comment: Speci men Type: BLOOD SPECIMENOrdering Facility: [facility] Address: [address] [place] [address] Performed By: #### 2 4321-2, ####[facility]ORATORYCLIA [id number] [place] [address] [place] CO2 [Moles/Vol] 27 mmol/L Normal 22-30 [facility] Comment on above: Order Comment: Speci men Type: BLOOD SPECIMENOrdering Facility: [facility] Address: [address] [place] [address] Performed By: #### 2 4321-2, ####[facility]ORATORYCLIA [id number] [place] [address] [place] Creatinine [Mass/Vol] 0.50 mg/dL Low 0.73-1.22 [facility] Comment on above: Order Comment: Shira feldman Type: BLOOD SPECIMENOrdering Facility: [facility] Address: [address] [phone] Performed By: #### 2 4321-2, ####[facility]ORATORYCLIA [id number] [address] ESTIMATED GLOMERULAR FILTRATION RATE 110 mL/min/1.73m??? Normal >=60 [facility] Comment on above: Order Comment: Shira feldman Type: BLOOD SPECIMENOrdering Facility: [facility] Address: [address] [place], [place] [address] Result Comment: Luzmaria mated Glomerular Filtration Rate [...] actual GFR. Performed By: #### 2 4321-2, ####[facility]ORATORYCLIA [id number] [address] STATES OF [facility] Glucose [Mass/Vol] 101 mg/dL High 74-99 [facility] Comment on above: Order Comment: Shira francia Type: BLOOD SPECIMENOrdering Facility: [facility] Address: [address] [phone] Result Comment: The [place] [employer] (ADA) [...] 2016.39(Suppl 1). Performed By: #### 2 432-2, ####[facility]ORATORYCLIA [id number] [place] [address] [place] Potassium [Moles/Vol] 3.6 mmol/L Low 3.7-5.1 [facility] Comment on above: Order Comment: Speci men Type: BLOOD SPECIMENOrdering Facility: [facility] Address: [address] [place] [address] Performed By: #### 2 4322, ####[facility]ORATORYCLIA [id number] [address] [place] Sodium [Moles/Vol] 138 mmol/L Normal 136-144 [facility] Comment on above: Order Comment: Speci men Type: BLOOD SPECIMENOrdering Facility: [facility] Address: [address] [place] [address] Performed By: #### 2 4320-06, ####[facility]ORATORYCLIA [id number] [address] [place] Urea nitrogen [Mass/Vol] 11 mg/dL Normal 9-24 [facility] Comment on above: Order Comment: Speci men Type: BLOOD SPECIMENOrdering Facility: [facility] Address: [address] [place] [address] Performed By: #### 2 4320-06, ####[facility]ORATORYCLIA [id number] [address] [place] CASE MANAGEMon 08-16-2021 CASE MANAGEM Normal [facility] CBC W Auto Differential pane l (Bld)on 08-16-2021 Basophils (Bld) [#/Vol] 0.03 10*3/uL Normal <0.11 [facility] Comment on above: Order Comment: Speci men Type: BLOOD SPECIMENOrdering Facility: [facility] Address: [address] [place], [place] [phone] Performed By: #### 5 7021-8 ####[facility]ORATORYCLIA [id number] [address] Basophils/100 WBC (Bld) 0.4 % Normal [facility] Comment on above: Order Comment: Speci men Type: BLOOD SPECIMENOrdering Facility: [facility] Address: [address] [place] [address] Performed By: #### 5 7021-8 ####[facility]ORATORYCLIA [id number] [address] [place] Differential cell count method Nom (Bld) Auto Normal [facility] Comment on above: Order Comment: Speci men Type: BLOOD SPECIMENOrdering Facility: [facility] Address: [address] [place] [address] Performed By: #### 5 7021-8 ####[facility]ORATORYCLIA [id number] [address] [place] Eosinophils (Bld) [#/Vol] 0.19 10*3/uL Normal <0.46 [facility] Comment on above: Order Comment: Speci men Type: BLOOD SPECIMENOrdering Facility: [facility] Address: [address] [place] [address] Performed By: #### 5 7021-8 ####[facility]ORATORYCLIA [id number] [address] [place] Eosinophils/100 WBC (Bld) 2.5 % Normal [facility] Comment on above: Order Comment: Speci men Type: BLOOD SPECIMENOrdering Facility: [facility] Address: [address] [place] [address] Performed By: #### 5 7021-8 ####[facility]ORATORYCLIA [id number] [address] [place] Erythrocyte distribution width (RBC) [Ratio] 17.1 % High 11.5-15.0 [facility] Comment on above: Order Comment: Speci men Type: BLOOD SPECIMENOrdering Facility: [facility] Address: [address] [place] [address] Performed By: #### 5 7021-8 ####[facility]ORATORYCLIA [id number] [address] Hematocrit (Bld) [Volume fraction] 29.2 % Low 39.0-51.0 [facility] Comment on above: Order Comment: Speci men Type: BLOOD SPECIMENOrdering Facility: [facility] Address: [address] [place] [address] Performed By: #### 5 7021-8 ####[facility]ORATORYCLIA [id number] [address] Hemoglobin (Bld) [Mass/Vol] 9.0 g/dL Low 13.0-17.0 [facility] Comment on above: Order Comment: Speci men Type: BLOOD SPECIMENOrdering Facility: [facility] Address: [address] [place] [address] Performed By: #### 5 7021-8 ####[facility]ORATORYCLIA [id number] [address] IMMATURE GRAN % 0.3 % Normal [facility] Comment on above: Order Comment: Speci men Type: BLOOD SPECIMENOrdering Facility: [facility] Address: [address] [place] [address] Performed By: #### 5 7021-8 ####[facility]ORATORYCLIA [id number] [address] IMMATURE GRAN ABS <0.03 Normal <0.10 [facility] Comment on above: Order Comment: Speci men Type: BLOOD SPECIMENOrdering Facility: [facility] Address: [address] [place] [address] Performed By: #### 5 7021-8 ####[facility]ORATORYCLIA [id number] [address] [place] Lymphocytes (Bld) [#/Vol] 1.41 10*3/uL Normal 1.00-4.00 [facility] Comment on above: Order Comment: Speci men Type: BLOOD SPECIMENOrdering Facility: [facility] Address: [address] [place] [address] Performed By: #### 5 7021-8 ####[facility]ORATORYCLIA [id number] [address] Lymphocytes/100 WBC (Bld) 18.4 % Normal [facility] Comment on above: Order Comment: Speci men Type: BLOOD SPECIMENOrdering Facility: [facility] Address: [address] [place] [address] Performed By: #### 5 7021-8 ####[facility]ORATORYCLIA [id number] [address] MCH (RBC) [Entitic mass] 28.0 pg Normal 26.0-34.0 [facility] Comment on above: Order Comment: Speci men Type: BLOOD SPECIMENOrdering Facility: [facility] Address: [address] [place] [address] Performed By: #### 5 7021-8 ####[facility]ORATORYCLIA [id number] [address] MCHC (RBC) [Mass/Vol] 30.8 g/dL Normal 30.5-36.0 [facility] Comment on above: Order Comment: Speci men Type: BLOOD SPECIMENOrdering Facility: [facility] Address: [address] [place] [address] Performed By: #### 5 7021-8 ####[facility]ORATORYCLIA [id number] [address] STATES [facility] MCV (RBC) [Entitic vol] 91.0 fL Normal 80.0-100.0 [facility] Comment on above: Order Comment: Speci men Type: BLOOD SPECIMENOrdering Facility: [facility] Address: [address] [place] [address] Performed By: #### 5 7021-8 ####[facility]ORATORYCLIA [id number] [place] [address] [place] Monocytes (Bld) [#/Vol] 0.47 10*3/uL Normal <0.87 [facility] Comment on above: Order Comment: Speci men Type: BLOOD SPECIMENOrdering Facility: [facility] Address: [address] [place] [address] Performed By: #### 5 7021-8 ####[facility]ORATORYCLIA [id number] [address] [place] Monocytes/100 WBC (Bld) 6.1 % Normal [facility] Comment on above: Order Comment: Speci men Type: BLOOD SPECIMENOrdering Facility: [facility] Address: [address] [place] [address] Performed By: #### 5 7021-8 ####[facility]ORATORYCLIA [id number] [address] [place] Neutrophils (Bld) [#/Vol] 5.55 10*3/uL Normal 1.45-7.50 [facility] Comment on above: Order Comment: Speci men Type: BLOOD SPECIMENOrdering Facility: [facility] Address: [address] [place] [address] Performed By: #### 5 7021-8 ####[facility] LABORATORYCLIA [id number] [address] [place] Neutrophils/100 WBC (Bld) 72.3 % Normal [facility] Comment on above: Order Comment: Speci men Type: BLOOD SPECIMENOrdering Facility: [facility] Address: [address] [place] [address] Performed By: #### 5 7021-8 ####[facility]ORATORYCLIA [id number] [place] [address] [place] Nucleated RBC (Bld) [#/Vol] 10*3/uL Normal <0.01 [facility] Comment on above: Order Comment: Speci men Type: BLOOD SPECIMENOrdering Facility: [facility] Address: [address] [place] [address] Performed By: #### 5 7021-8 ####[facility]ATORYCLIA [id number] [address] Nucleated RBC/100 WBC (Bld) [Ratio] 0.0 /100 WBC Normal [facility] Comment on above: Order Comment: Speci men Type: BLOOD SPECIMENOrdering Facility: [facility] Address: [address] [place] [address] Performed By: #### 5 7021-8 ####[facility]ORATORYCLIA [id number] [address] [place] Platelet mean volume (Bld) [Entitic vol] 9.3 fL Normal 9.0-12.7 [facility] Comment on above: Order Comment: Speci men Type: BLOOD SPECIMENOrdering Facility: [facility] Address: [address] [place] [address] Performed By: #### 5 7021-8 ####[facility]ORATORYCLIA [id number] [address] [place] Platelets (Bld) [#/Vol] 319 10*3/uL Normal 150-400 [facility] Comment on above: Order Comment: Speci men Type: BLOOD SPECIMENOrdering Facility: [facility] Address: [address] [place] [address] Performed By: #### 5 7021-8 ####[facility]ORATORYCLIA [id number] [address] [place] RBC (Bld) [#/Vol] 3.21 10*6/uL Low 4.20-6.00 [facility] Comment on above: Order Comment: Speci men Type: BLOOD SPECIMENOrdering Facility: [facility] Address: [address] [place] [address] Performed By: #### 5 7021-8 ####[facility]ORATORYCLIA [id number] [address] [place] WBC (Bld) [#/Vol] 7.67 10*3/uL Normal 3.70-11.00 [facility] Comment on above: Order Comment: Speci men Type: BLOOD SPECIMENOrdering Facility: [facility] Address: [facility] [address] Performed By: #### 5 7021-8 ####[facility]ORATORYCLIA [id number] [place] [address] [place] Basophils (Bld) [#/Vol] 0.04 10*3/uL Normal <0.11 [facility] Comment on above: Order Comment: Speci men Type: BLOOD SPECIMENOrdering Facility: [facility] Address: [address] [place] [address] Performed By: #### 5 7021-8 ####[facility]ATORYCLIA [id number] [address] [place] Basophils/100 WBC (Bld) 0.5 % Normal [facility] Comment on above: Order Comment: Speci men Type: BLOOD SPECIMENOrdering Facility: [facility] Address: [address] [place] [address] Performed By: #### 5 7021-8 ####[facility]ORATORYCLIA [id number] [address] STATES [facility] Differential cell count method Nom (Bld) Auto Normal [facility] Comment on above: Order Comment: Speci men Type: BLOOD SPECIMENOrdering Facility: [facility] Address: [address] [place] [address] Performed By: #### 5 7021-8 ####[facility]ORATORYCLIA [id number] [place] [address] [place] Eosinophils (Bld) [#/Vol] 0.19 10*3/uL Normal <0.46 [facility] Comment on above: Order Comment: Speci men Type: BLOOD SPECIMENOrdering Facility: [facility] Address: [address] [place] [address] Performed By: #### 5 7021-8 ####[facility]ATORYCLIA [id number] [address] Eosinophils/100 WBC (Bld) 2.5 % Normal [facility] Comment on above: Order Comment: Speci men Type: BLOOD SPECIMENOrdering Facility: [facility] Address: [address] [place] [address] Performed By: #### 5 7021-8 ####[facility]ORATORYCLIA [id number] [address] Erythrocyte distribution width (RBC) [Ratio] 17.2 % High 11.5-15.0 [facility] Comment on above: Order Comment: Speci men Type: BLOOD SPECIMENOrdering Facility: [facility] Address: [address] [place] [address] Performed By: #### 5 7021-8 ####[facility]ORATORYCLIA [id number] [address] Hematocrit (Bld) [Volume fraction] 29.5 % Low 39.0-51.0 [facility] Comment on above: Order Comment: Speci men Type: BLOOD SPECIMENOrdering Facility: [facility] Address: [address] [place] [address] Performed By: #### 5 7021-8 ####[facility]ORATORYCLIA [id number] [address] [place] Hemoglobin (Bld) [Mass/Vol] 9.2 g/dL Low 13.0-17.0 [facility] Comment on above: Order Comment: Speci men Type: BLOOD SPECIMENOrdering Facility: [facility] Address: [address] [place] [address] Performed By: #### 5 7021-8 ####[facility]ORATORYCLIA [id number] [address] IMMATURE GRAN % 0.4 % Normal [facility] Comment on above: Order Comment: Speci men Type: BLOOD SPECIMENOrdering Facility: [facility] Address: [address] [place] [address] Performed By: #### 5 7021-8 ####[facility]ORATORYCLIA [id number] [address] IMMATURE GRAN ABS 0.03 k/uL Normal <0.10 [facility] Comment on above: Order Comment: Speci men Type: BLOOD SPECIMENOrdering Facility: [facility] Address: [address] [place] [address] Performed By: #### 5 7021-8 ####[facility]ORATORYCLIA [id number] [address] Lymphocytes (Bld) [#/Vol] 1.50 10*3/uL Normal 1.00-4.00 [facility] Comment on above: Order Comment: Speci men Type: BLOOD SPECIMENOrdering Facility: [facility] Address: [address] [place] [address] Performed By: #### 5 7021-8 ####[facility]ORATORYCLIA [id number] [address] Lymphocytes/100 WBC (Bld) 19.7 % Normal [facility] Comment on above: Order Comment: Speci men Type: BLOOD SPECIMENOrdering Facility: [facility] Address: [address] [place] [address] Performed By: #### 5 7021-8 ####[facility]ORATORYCLIA [id number] [address] MCH (RBC) [Entitic mass] 28.3 pg Normal 26.0-34.0 [facility] Comment on above: Order Comment: Speci men Type: BLOOD SPECIMENOrdering Facility: [facility] Address: [address] [place] [address] Performed By: #### 5 7021-8 ####[facility]ORATORYCLIA [id number] [address] MCHC (RBC) [Mass/Vol] 31.2 g/dL Normal 30.5-36.0 [facility] Comment on above: Order Comment: Speci men Type: BLOOD SPECIMENOrdering Facility: [facility] Address: [address] [place] [address] Performed By: #### 5 7021-8 ####[facility]ORATORYCLIA [id number] [address] MCV (RBC) [Entitic vol] 90.8 fL Normal 80.0-100.0 [facility] Comment on above: Order Comment: Speci men Type: BLOOD SPECIMENOrdering Facility: [facility] Address: [address] [place] [address] Performed By: #### 5 7021-8 ####[facility]ORATORYCLIA [id number] [address] Monocytes (Bld) [#/Vol] 0.49 10*3/uL Normal <0.87 [facility] Comment on above: Order Comment: Speci men Type: BLOOD SPECIMENOrdering Facility: [facility] Address: [address] [place] [address] Performed By: #### 5 7021-8 ####[facility]ORATORYCLIA [id number] [address] Monocytes/100 WBC (Bld) 6.4 % Normal [facility] Comment on above: Order Comment: Speci men Type: BLOOD SPECIMENOrdering Facility: [facility] Address: [address] [place] [address] Performed By: #### 5 7021-8 ####[facility] LABORATORYCLIA [id number] [address] [place] Neutrophils (Bld) [#/Vol] 5.38 10*3/uL Normal 1.45-7.50 [facility] Comment on above: Order Comment: Speci men Type: BLOOD SPECIMENOrdering Facility: [facility] Address: [address] [place] [address] Performed By: #### 5 7021-8 ####[facility] LABORATORYCLIA [id number] [address] Neutrophils/100 WBC (Bld) 70.5 % Normal [facility] Comment on above: Order Comment: Speci men Type: BLOOD SPECIMENOrdering Facility: [facility] Address: [address] [place] [address] Performed By: #### 5 7021-8 ####[facility] LABORATORYCLIA [id number] [address] [place] Nucleated RBC (Bld) [#/Vol] 10*3/uL Normal <0.01 [facility] Comment on above: Order Comment: Speci men Type: BLOOD SPECIMENOrdering Facility: [facility] Address: [address] [place] [address] Performed By: #### 5 7021-8 ####[facility] LABORATORYCLIA [id number] [address] Nucleated RBC/100 WBC (Bld) [Ratio] 0.0 /100 WBC Normal [facility] Comment on above: Order Comment: Speci men Type: BLOOD SPECIMENOrdering Facility: [facility] Address: [address] [place], [place] [address] Performed By: #### 5 7021-8 ####[facility] LABORATORYCLIA [id number] [address] [place] Platelet mean volume (Bld) [Entitic vol] 9.0 fL Normal 9.0-12.7 [facility] Comment on above: Order Comment: Speci men Type: BLOOD SPECIMENOrdering Facility: [facility] Address: [address] Performed By: #### 5 7021-8 ####[facility] LABORATORYCLIA [id number] [address] [place] Platelets (Bld) [#/Vol] 316 10*3/uL Normal 150-400 [facility] Comment on above: Order Comment: Speci men Type: BLOOD SPECIMENOrdering Facility: [facility] Address: [address] [place], [place] [address] Performed By: #### 5 7021-8 ####[facility] LABORATORYCLIA [id number] [address] [place] RBC (Bld) [#/Vol] 3.25 10*6/uL Low 4.20-6.00 [facility] Comment on above: Order Comment: Speci men Type: BLOOD SPECIMENOrdering Facility: [facility] Address: [address] [place] [address] Performed By: #### 5 7021-8 ####[facility] LABORATORYCLIA [id number] [address] [place] WBC (Bld) [#/Vol] 7.63 10*3/uL Normal 3.70-11.00 [facility] Comment on above: Order Comment: Speci men Type: BLOOD SPECIMENOrdering Facility: [facility] Address: [address] [place] [address] Performed By: #### 5 7021-8 ####[facility] LABORATORYCLIA [id number] [address] STATES OF [facility] Basophils (Bld) [#/Vol] Normal <0.11 [facility] Comment on above: Order Comment: Speci men Type: BLOOD SPECIMENOrdering Facility: [facility] Address: [address] [place] [address] Result Comment: Carolina Owens RN informed lab after results autoverified that she rd on the wrong patient. Lab to credit. Nurse to redraw on correct patient.Corrected result: Previously reported as 0.04 k/uL on 08/16/2021 at 4:44 AM EDT. Performed By: #### 5 7021-8 ####[facility] LABORATORYCLIA [id number] [address] OF [facility] Basophils/100 WBC (Bld) Normal [facility] Comment on above: Order Comment: Speci men Type: BLOOD SPECIMENOrdering Facility: [facility] Address: [address] [place] [address] Result Comment: Tati ected result: Previously reported as 0.4 % on 08/16/2021 at 4:44 AM EDT. Performed By: #### 5 7021-8 ####[facility] LABORATORYCLIA [id number] [address] CBC W Differential panel, method unspecified (Bld) Normal [facility] Comment on above: Order Comment: Speci men Type: BLOOD SPECIMENOrdering Facility: [facility] Address: [address] [place] [address] Result Comment: Carolina Owens RN informed lab after results autoverified that she rd on the wrong patient. Lab to credit. Nurse to redraw on correct patient. Performed By: #### 5 7021-8 ####[facility]ORATORYCLIA [id number] [address] Differential cell count method Nom (Bld) Normal [facility] Comment on above: Order Comment: Speci [facility] Type: BLOOD SPECIMENOrdering Facility: [facility] Address: [address] [place] [address] Result Comment: Carolina Owens RN informed lab after results autoverified that she rd on the wrong patient. Lab to credit. Nurse to redraw on correct patient.Corrected result: Previously reported as Auto on 08/16/2021 at 4:44 AM EDT. Performed By: #### 5 7021-8 ####[facility] LABORATORYCLIA [id number] [address] Eosinophils (Bld) [#/Vol] Normal <0.46 [facility] Comment on above: Order Comment: Speci men Type: BLOOD SPECIMENOrdering Facility: [facility] Address: [address] [place] [address] Result Comment: Carolina Owens RN informed lab after results autoverified that she rd on the wrong patient. Lab to credit. Nurse to redraw on correct patient.Corrected result: Previously reported as 0.07 k/uL on 08/16/2021 at 4:44 AM EDT. Performed By: #### 5 7021-8 ####[facility] LABORATORYCLIA [id number] [address] [place] Eosinophils/100 WBC (Bld) Normal [facility] Comment on above: Order Comment: Speci men Type: BLOOD SPECIMENOrdering Facility: [facility] Address: [address] [place] [address] Result Comment: Carolina Owens RN informed lab after results autoverified that she rd on the wrong patient. Lab to credit. Nurse to redraw on correct patient.Corrected result: Previously reported as 0.7 % on 08/16/2021 at 4:44 AM EDT. Performed By: #### 5 7021-8 ####[facility] LABORATORYCLIA [id number] [address] Erythrocyte distribution width (RBC) [Ratio] Normal 11.5-15.0 [facility] Comment on above: Order Comment: Speci men Type: BLOOD SPECIMENOrdering Facility: [facility] Address: [address] [place] [address] Result Comment: Carolina Owens RN informed lab after results autoverified that she rd on the wrong patient. Lab to credit. Nurse to redraw on correct patient.Corrected result: Previously reported as 14.2 % on 08/16/2021 at 4:44 AM EDT. Performed By: #### 5 7021-8 ####[facility]ORATORYCLIA [id number] [address] [place] Hematocrit (Bld) [Volume fraction] Normal 39.0-51.0 [facility] Comment on above: Order Comment: Speci men Type: BLOOD SPECIMENOrdering Facility: [facility] Address: [address] [place] [address] Result Comment: Carolina Owens RN informed lab after results autoverified that she rd on the wrong patient. Lab to credit. Nurse to redraw on correct patient.Corrected result: Previously reported as 34.3 % on 08/16/2021 at 4:44 AM EDT. Performed By: #### 5 7021-8 ####[facility] LABORATORYCLIA [id number] [address] Hemoglobin (Bld) [Mass/Vol] Normal 13.0-17.0 [facility] Comment on above: Order Comment: Speci men Type: BLOOD SPECIMENOrdering Facility: [facility] Address: [address] [place] [address] Result Comment: Carolina Owens RN informed lab after results autoverified that she rd on the wrong patient. Lab to credit. Nurse to redraw on correct patient.Corrected result: Previously reported as 11.2 g/dL on 08/16/2021 at 4:44 AM EDT. Performed By: #### 5 7021-8 ####[facility]ORATORYCLIA [id number] [address] IMMATURE GRAN % Normal [facility] Comment on above: Order Comment: Speci men Type: BLOOD SPECIMENOrdering Facility: [facility] Address: [address] [place] [address] Result Comment: Carolina Owens RN informed lab after results autoverified that she rd on the wrong patient. Lab to credit. Nurse to redraw on correct patient.Corrected result: Previously reported as 0.8 % on 08/16/2021 at 4:44 AM EDT. Performed By: #### 5 7021-8 ####[facility]ORATORYCLIA [id number] [address] OF [facility] IMMATURE GRAN ABS Normal <0.10 [facility] Comment on above: Order Comment: Speci men Type: BLOOD SPECIMENOrdering Facility: [facility] Address: [address] [place] [address] Result Comment: Tati ected result: Previously reported as 0.08 k/uL on 08/16/2021 at 4:44 AM EDT. Performed By: #### 5 7021-8 ####[facility]ORATORYCLIA [id number] [address] OF [facility] Lymphocytes (Bld) [#/Vol] Normal 1.00-4.00 [facility] Comment on above: Order Comment: Speci men Type: BLOOD SPECIMENOrdering Facility: [facility] Address: [address] [place] [address] Result Comment: Carolina Owens RN informed lab after results autoverified that she rd on the wrong patient. Lab to credit. Nurse to redraw on correct patient.Corrected result: Previously reported as 1.17 k/uL on 08/16/2021 at 4:44 AM EDT. Performed By: #### 5 7021-8 ####[facility]ORATORYCLIA [id number] [address] Lymphocytes/100 WBC (Bld) Normal [facility] Comment on above: Order Comment: Speci men Type: BLOOD SPECIMENOrdering Facility: [facility] Address: [address] [place] [address] Result Comment: Carolian Owens RN informed lab after results autoverified that she rd on the wrong patient. Lab to credit. Nurse to redraw on correct patient.Corrected result: Previously reported as 12.0 % on 08/16/2021 at 4:44 AM EDT. Performed By: #### 5 7021-8 ####[facility]ORATORYCLIA [id number] [address] [place] [facility] MCHC (RBC) [Mass/Vol] Normal 30.5-36.0 [facility] Comment on above: Order Comment: Speci men Type: BLOOD SPECIMENOrdering Facility: [facility] Address: [address] [place] [address] Result Comment: Carolina Owens RN informed lab after results autoverified that she rd on the wrong patient. Lab to credit. Nurse to redraw on correct patient.Corrected result: Previously reported as 32.7 g/dL on 08/16/2021 at 4:44 AM EDT. Performed By: #### 5 7021-8 ####[facility]ORATORYCLIA [id number] [address] [place] MCV (RBC) [Entitic vol] Normal 80.0-100.0 [facility] Comment on above: Order Comment: Speci men Type: BLOOD SPECIMENOrdering Facility: [facility] Address: [address] [place] [address] Result Comment: Carolina Owens RN informed lab after results autoverified that she rd on the wrong patient. Lab to credit. Nurse to redraw on correct patient.Corrected result: Previously reported as 94.2 fL on 08/16/2021 at 4:44 AM EDT. Performed By: #### 5 7021-8 ####[facility]ORATORYCLIA [id number] [address] [place] Monocytes (Bld) [#/Vol] Normal <0.87 [facility] Comment on above: Order Comment: Speci men Type: BLOOD SPECIMENOrdering Facility: [facility] Address: [address] [place] [address] Result Comment: Carolina Owens RN informed lab after results autoverified that she rd on the wrong patient. Lab to credit. Nurse to redraw on correct patient.Corrected result: Previously reported as 0.99 k/uL on 08/16/2021 at 4:44 AM EDT. Performed By: #### 5 7021-8 ####[facility]ORATORYCLIA [id number] [address] [place] Monocytes/100 WBC (Bld) Normal [facility] Comment on above: Order Comment: Speci men Type: BLOOD SPECIMENOrdering Facility: [facility] Address: [address] [place] [address] Result Comment: Carolina Owens RN informed lab after results autoverified that she rd on the wrong patient. Lab to credit. Nurse to redraw on correct patient.Corrected result: Previously reported as 10.2 % on 08/16/2021 at 4:44 AM EDT. Performed By: #### 5 7021-8 ####[facility]ORATORYCLIA [id number] [place] [address] [place] Neutrophils (Bld) [#/Vol] Normal 1.45-7.50 [facility] Comment on above: Order Comment: Speci men Type: BLOOD SPECIMENOrdering Facility: [facility] Address: [address] [place] [address] Result Comment: Carolina Owens RN informed lab after results autoverified that she rd on the wrong patient. Lab to credit. Nurse to redraw on correct patient.Corrected result: Previously reported as 7.40 k/uL on 08/16/2021 at 4:44 AM EDT. Performed By: #### 5 7021-8 ####[facility]ORATORYCLIA [id number] [address] [place] Neutrophils/100 WBC (Bld) Normal [facility] Comment on above: Order Comment: Speci men Type: BLOOD SPECIMENOrdering Facility: [facility] Address: [address] [place] [address] Result Comment: Carolina Owens RN informed lab after results autoverified that she rd on the wrong patient. Lab to credit. Nurse to redraw on correct patient.Corrected result: Previously reported as 75.9 % on 08/16/2021 at 4:44 AM EDT. Performed By: #### 5 7021-8 ####[facility] LABORATORYCLIA [id number] [place] [address] [place] Platelet mean volume (Bld) [Entitic vol] Normal 9.0-12.7 [facility] Comment on above: Order Comment: Speci men Type: BLOOD SPECIMENOrdering Facility: [facility] Address: [address] [place] [address] Result Comment: Carolina Owens RN informed lab after results autoverified that she rd on the wrong patient. Lab to credit. Nurse to redraw on correct patient.Corrected result: Previously reported as 9.1 fL on 08/16/2021 at 4:44 AM EDT. Performed By: #### 5 7021-8 ####[facility] LABORATORYCLIA [id number] [place] [address] [place] Platelets (Bld) [#/Vol] Normal 150-400 [facility] Comment on above: Order Comment: Speci men Type: BLOOD SPECIMENOrdering Facility: [facility] Address: [address] [place] [address] Result Comment: Carolina Owens RN informed lab after results autoverified that she rd on the wrong patient. Lab to credit. Nurse to redraw on correct patient.Corrected result: Previously reported as 338 k/uL on 08/16/2021 at 4:44 AM EDT. Performed By: #### 5 7021-8 ####[facility] LABORATORYCLIA [id number] [address] OF [facility] RBC (Bld) [#/Vol] Normal 4.20-6.00 [facility] Comment on above: Order Comment: Speci men Type: BLOOD SPECIMENOrdering Facility: [facility] Address: [address] [place] [address] Result Comment: Carolina Owens RN informed lab after results autoverified that she rd on the wrong patient. Lab to credit. Nurse to redraw on correct patient.Corrected result: Previously reported as 3.64 m/uL on 08/16/2021 at 4:44 AM EDT. Performed By: #### 5 7021-8 ####[facility]ORATORYCLIA [id number] [address] OF [facility] WBC (Bld) [#/Vol] Normal 3.70-11.00 [facility] Comment on above: Order Comment: Speci men Type: BLOOD SPECIMENOrdering Facility: [facility] Address: [address] [place] [address] Result Comment: Carolina Owens RN informed lab after results autoverified that she rd on the wrong patient. Lab to credit. Nurse to redraw on correct patient.Corrected result: Previously reported as 9.75 k/uL on 08/16/2021 at 4:44 AM EDT. Performed By: #### 5 7021-8 ####[facility]ATORYCLIA [id number] [address] [place] CONSULT PROGon 08-16-2021 CONSULT PROG Normal [facility] Magnesium SerPl-mCncon 08-16 Magnesium [Mass/Vol] 1.8 mg/dL Normal 1.7-2.3 [facility] Comment on above: Order Comment: Speci men Type: BLOOD SPECIMENOrdering Facility: [facility] Address: [address] [place] [address] Performed By: #### 2 4321-2, 79517-6 ####[facility]ORATORYCLIA [id number] [place] [address] [place] NURSING PROGon 08-16-2021 NURSING PROG Normal [facility] Basic metabolic 2000 panelon 08-15-2021 Anion gap [Moles/Vol] 13 mmol/L Normal 9-18 [facility] Comment on above: Order Comment: Speci men Type: BLOOD SPECIMENOrdering Facility: [facility] Address: [address] [place] [address] Performed By: #### 2 4321-2 ####[facility]ORATORYCLIA [id number] [place] [address] [place] Calcium [Mass/Vol] 9.0 mg/dL Normal 8.5-10.2 [facility] Comment on above: Order Comment: Speci men Type: BLOOD SPECIMENOrdering Facility: [facility] Address: [address] [place] [address] Performed By: #### 2 4321-2 ####[facility]ORATORYCLIA [id number] [place] [address] [place] Chloride [Moles/Vol] 95 mmol/L Low 97-105 [facility] Comment on above: Order Comment: Speci men Type: BLOOD SPECIMENOrdering Facility: [facility] Address: [address] [place] [address] Performed By: #### 2 4321-2 ####[facility]ATORYCLIA [id number] [place] [address] [place] CO2 [Moles/Vol] 28 mmol/L Normal 22-30 [facility] Comment on above: Order Comment: Speci men Type: BLOOD SPECIMENOrdering Facility: [facility] Address: [address] [place], [place] [address] Performed By: #### 2 4321-2 ####[facility] LABORATORYCLIA [id number] [place] [id number] [place] OF [facility] Creatinine [Mass/Vol] 0.50 mg/dL Low 0.73-1.22 [facility] Comment on above: Order Comment: Speci francia Type: BLOOD SPECIMENOrdering Facility: [facility] Address: [address] [place] [address] Performed By: #### 2 4321-2 ####[facility] LABORATORYCLIA [id number] [address] OF [facility] ESTIMATED GLOMERULAR FILTRATION RATE 110 mL/min/1.73m??? Normal >=60 [facility] Comment on above: Order Comment: Shira feldman Type: BLOOD SPECIMENOrdering Facility: [facility] Address: [address] [place] [address] Result Comment: Luzmaria mated Glomerular Filtration Rate [...] actual GFR. Performed By: #### 2 4321-2 ####[facility]ORATORYCLIA [id number] [address] STATES [place] [facility] Glucose [Mass/Vol] 106 mg/dL High 74-99 [facility] Comment on above: Order Comment: Shira francia Type: BLOOD SPECIMENOrdering Facility: [facility] Address: [address] [place] [address] Result Comment: The [place] [employer] (ADA) [...] 2016.39(Suppl 1). Performed By: #### 2 4321-2 ####[facility]ORATORYCLIA [id number] [address] STATES [place] [facility] Potassium [Moles/Vol] 3.3 mmol/L Low 3.7-5.1 [facility] Comment on above: Order Comment: Speci men Type: BLOOD SPECIMENOrdering Facility: [facility] Address: [address] [place] [address] Performed By: #### 2 4321-2 ####[facility]ORATORYCLIA [id number] [address] STATES [facility] Sodium [Moles/Vol] 136 mmol/L Normal 136-144 [facility] Comment on above: Order Comment: Johni men Type: BLOOD SPECIMENOrdering Facility: [facility] Address: [address] [place] [address] Performed By: #### 2 4321-2 ####[facility]ORATORYCLIA [id number] [address] Urea nitrogen [Mass/Vol] 11 mg/dL Normal 9-24 [facility] Comment on above: Order Comment: Johni men Type: BLOOD SPECIMENOrdering Facility: [facility] Address: [address] [place] [address] Performed By: #### 2 4321-2 ####[facility]ORATORYCLIA [id number] [address] [place] CASE MANAGEMon 08-15-2021 CASE MANAGEM Normal [facility] CBC W Auto Differential pane l (Bld)on 08-15-2021 Basophils (Bld) [#/Vol] 0.03 10*3/uL Normal <0.11 [facility] Comment on above: Order Comment: Speci men Type: BLOOD SPECIMENOrdering Facility: [facility] Address: [address] [place] [address] Performed By: #### 5 7021-8 ####[facility]ATORYCLIA [id number] [address] Basophils/100 WBC (Bld) 0.4 % Normal [facility] Comment on above: Order Comment: Speci men Type: BLOOD SPECIMENOrdering Facility: [facility] Address: [address] [place] [address] Performed By: #### 5 7021-8 ####[facility]ORATORYCLIA [id number] [address] Differential cell count method Nom (Bld) Auto Normal [facility] Comment on above: Order Comment: Speci men Type: BLOOD SPECIMENOrdering Facility: [facility] Address: [address] [place] [address] Performed By: #### 5 7021-8 ####[facility]ORATORYCLIA [id number] [address] STATES [place] [facility] Eosinophils (Bld) [#/Vol] 0.20 10*3/uL Normal <0.46 [facility] Comment on above: Order Comment: Speci men Type: BLOOD SPECIMENOrdering Facility: [facility] Address: [address] [place] [address] Performed By: #### 5 7021-8 ####[facility]ORATORYCLIA [id number] [address] Eosinophils/100 WBC (Bld) 2.5 % Normal [facility] Comment on above: Order Comment: Speci men Type: BLOOD SPECIMENOrdering Facility: [facility] Address: [address] [place] [address] Performed By: #### 5 7021-8 ####[facility]ATORYCLIA [id number] [address] [place] Erythrocyte distribution width (RBC) [Ratio] 16.7 % High 11.5-15.0 [facility] Comment on above: Order Comment: Speci men Type: BLOOD SPECIMENOrdering Facility: [facility] Address: [address] [place] [address] Performed By: #### 5 7021-8 ####[facility]ORATORYCLIA [id number] [address] Hematocrit (Bld) [Volume fraction] 30.3 % Low 39.0-51.0 [facility] Comment on above: Order Comment: Speci men Type: BLOOD SPECIMENOrdering Facility: [facility] Address: [address] [place] [address] Performed By: #### 5 7021-8 ####[facility]ORATORYCLIA [id number] [address] Hemoglobin (Bld) [Mass/Vol] 9.4 g/dL Low 13.0-17.0 [facility] Comment on above: Order Comment: Speci men Type: BLOOD SPECIMENOrdering Facility: [facility] Address: [address] [place] [address] Performed By: #### 5 7021-8 ####[facility]ORATORYCLIA [id number] [address] IMMATURE GRAN % 0.4 % Normal [facility] Comment on above: Order Comment: Speci men Type: BLOOD SPECIMENOrdering Facility: [facility] Address: [address] [place] [address] Performed By: #### 5 7021-8 ####[facility]ORATORYCLIA [id number] [address] IMMATURE GRAN ABS 0.03 k/uL Normal <0.10 [facility] Comment on above: Order Comment: Speci men Type: BLOOD SPECIMENOrdering Facility: [facility] Address: [address] [place] [address] Performed By: #### 5 7021-8 ####[facility]ORATORYCLIA [id number] [address] Lymphocytes (Bld) [#/Vol] 1.50 10*3/uL Normal 1.00-4.00 [facility] Comment on above: Order Comment: Speci men Type: BLOOD SPECIMENOrdering Facility: [facility] Address: [address] [place] [address] Performed By: #### 5 7021-8 ####[facility]ORATORYCLIA [id number] [address] Lymphocytes/100 WBC (Bld) 18.5 % Normal [facility] Comment on above: Order Comment: Speci men Type: BLOOD SPECIMENOrdering Facility: [facility] Address: [address] [place] [address] Performed By: #### 5 7021-8 ####[facility]ORATORYCLIA [id number] [address] STATES [place] [facility] MCH (RBC) [Entitic mass] 29.0 pg Normal 26.0-34.0 [facility] Comment on above: Order Comment: Speci men Type: BLOOD SPECIMENOrdering Facility: [facility] Address: [address] [place] [address] Performed By: #### 5 7021-8 ####[facility] LABORATORYCLIA [id number] [address] MCHC (RBC) [Mass/Vol] 31.0 g/dL Normal 30.5-36.0 [facility] Comment on above: Order Comment: Speci men Type: BLOOD SPECIMENOrdering Facility: [facility] Address: [address] [place] [address] Performed By: #### 5 7021-8 ####[facility] LABORATORYCLIA [id number] [address] MCV (RBC) [Entitic vol] 93.5 fL Normal 80.0-100.0 [facility] Comment on above: Order Comment: Speci men Type: BLOOD SPECIMENOrdering Facility: [facility] Address: [address] [place] [address] Performed By: #### 5 7021-8 ####[facility]ORATORYCLIA [id number] [place] [address] [place] Monocytes (Bld) [#/Vol] 0.47 10*3/uL Normal <0.87 [facility] Comment on above: Order Comment: Speci men Type: BLOOD SPECIMENOrdering Facility: [facility] Address: [address] [place] [address] Performed By: #### 5 7021-8 ####[facility]ORATORYCLIA [id number] [address] [place] Monocytes/100 WBC (Bld) 5.8 % Normal [facility] Comment on above: Order Comment: Speci men Type: BLOOD SPECIMENOrdering Facility: [facility] Address: [address] [place] [address] Performed By: #### 5 7021-8 ####[facility] LABORATORYCLIA [id number] [place] [address] [place] Neutrophils (Bld) [#/Vol] 5.87 10*3/uL Normal 1.45-7.50 [facility] Comment on above: Order Comment: Speci men Type: BLOOD SPECIMENOrdering Facility: [facility] Address: [address] [place] [address] Performed By: #### 5 7021-8 ####[facility]ORATORYCLIA [id number] [address] [place] Neutrophils/100 WBC (Bld) 72.4 % Normal [facility] Comment on above: Order Comment: Speci men Type: BLOOD SPECIMENOrdering Facility: [facility] Address: [address] [place] [address] Performed By: #### 5 7021-8 ####[facility]ORATORYCLIA [id number] [place] [address] [place] Nucleated RBC (Bld) [#/Vol] 10*3/uL Normal <0.01 [facility] Comment on above: Order Comment: Speci men Type: BLOOD SPECIMENOrdering Facility: [facility] Address: [address] [place] [address] Performed By: #### 5 7021-8 ####[facility] LABORATORYCLIA [id number] [address] Nucleated RBC/100 WBC (Bld) [Ratio] 0.0 /100 WBC Normal [facility] Comment on above: Order Comment: Speci men Type: BLOOD SPECIMENOrdering Facility: [facility] Address: [address] [place] [address] Performed By: #### 5 7021-8 ####[facility] LABORATORYCLIA [id number] [address] [place] Platelet mean volume (Bld) [Entitic vol] 9.4 fL Normal 9.0-12.7 [facility] Comment on above: Order Comment: Speci men Type: BLOOD SPECIMENOrdering Facility: [facility] Address: [address] [place] [address] Performed By: #### 5 7021-8 ####[facility] LABORATORYCLIA [id number] [address] [place] Platelets (Bld) [#/Vol] 290 10*3/uL Normal 150-400 [facility] Comment on above: Order Comment: Speci men Type: BLOOD SPECIMENOrdering Facility: [facility] Address: [address] [place] [address] Performed By: #### 5 7021-8 ####[facility] LABORATORYCLIA [id number] [address] [place] RBC (Bld) [#/Vol] 3.24 10*6/uL Low 4.20-6.00 [facility] Comment on above: Order Comment: Speci men Type: BLOOD SPECIMENOrdering Facility: [facility] Address: [address] [place] [address] Performed By: #### 5 7021-8 ####[facility] LABORATORYCLIA [id number] [place] [address] [place] WBC (Bld) [#/Vol] 8.10 10*3/uL Normal 3.70-11.00 [facility] Comment on above: Order Comment: Speci men Type: BLOOD SPECIMENOrdering Facility: [facility] Address: [address] [place] [address] Performed By: #### 5 7021-8 ####[facility] LABORATORYCLIA [id number] [address] [place] THERAPY NTon 08-15-2021 THERAPY NT Normal [facility] THERAPY NT Normal [facility] THERAPY NT Normal [facility] Basic metabolic 2000 panelon 08-14-2021 Anion gap [Moles/Vol] 10 mmol/L Normal 9-18 [facility] Comment on above: Order Comment: Speci men Type: BLOOD SPECIMENOrdering Facility: [facility] Address: [address] [place] [address] Performed By: #### 2 4321-2 ####[facility] LABORATORYCLIA [id number] [place] [address] [place] Calcium [Mass/Vol] 8.8 mg/dL Normal 8.5-10.2 [facility] Comment on above: Order Comment: Speci men Type: BLOOD SPECIMENOrdering Facility: [facility] Address: [address] [place] [address] Performed By: #### 2 4321-2 ####[facility] LABORATORYCLIA [id number] [place] [address] [place] Chloride [Moles/Vol] 92 mmol/L Low 97-105 [facility] Comment on above: Order Comment: Speci men Type: BLOOD SPECIMENOrdering Facility: [facility] Address: [address] [place] [address] Performed By: #### 2 4321-2 ####[facility] LABORATORYCLIA [id number] [place] [address] [place] CO2 [Moles/Vol] 29 mmol/L Normal 22-30 [facility] Comment on above: Order Comment: Speci men Type: BLOOD SPECIMENOrdering Facility: [facility] Address: [address] [address] Performed By: #### 2 4321-2 ####[facility] HOSPITALIA [id number] [address] STATES OF [facility] Creatinine [Mass/Vol] 0.49 mg/dL Low 0.73-1.22 [facility] Comment on above: Order Comment: Speci men Type: BLOOD SPECIMENOrdering Facility: [facility] Address: [address] [address] Performed By: #### 2 4321-2 ####[facility] HOSPITALIA [id number] [address] ESTIMATED GLOMERULAR FILTRATION RATE 111 mL/min/1.73m??? Normal >=60 [facility] Comment on above: Order Comment: Speccara feldman Type: BLOOD SPECIMENOrdering Facility: [facility] Address: [address] [place] [address] Result Comment: Luzmaria mated Glomerular Filtration Rate [...] actual GFR. Performed By: #### 2 4321-2 ####[facility] LABORATORYIA [id number] [address] OF [facility] Glucose [Mass/Vol] 104 mg/dL High 74-99 [facility] Comment on above: Order Comment: Shira feldman Type: BLOOD SPECIMENOrdering Facility: [facility] Address: [address] [address] Result Comment: The [place] [employer] (ADA) [...] 2016.39(Suppl 1). Performed By: #### 2 4321-2 ####[facility] LABORATORYCLIA [id number] [address] OF [facility] Potassium [Moles/Vol] 3.1 mmol/L Low 3.7-5.1 [facility] Comment on above: Order Comment: Speci men Type: BLOOD SPECIMENOrdering Facility: [facility] Address: [address] [place] [address] Performed By: #### 2 4321-2 ####[facility]ORATORYCLIA [id number] [address] Sodium [Moles/Vol] 131 mmol/L Low 136-144 [facility] Comment on above: Order Comment: Speci men Type: BLOOD SPECIMENOrdering Facility: [facility] Address: [address] [place] [address] Performed By: #### 2 4321-2 ####[facility]ORATORYCLIA [id number] [address] STATES [facility] Urea nitrogen [Mass/Vol] 13 mg/dL Normal 9-24 [facility] Comment on above: Order Comment: Speci men Type: BLOOD SPECIMENOrdering Facility: [facility] Address: [address] [place] [address] Performed By: #### 2 4321-2 ####[facility]ORATORYCLIA [id number] [address] STATES OF [facility] CBC W Auto Differential pane l (Bld)on 08-14-2021 Basophils (Bld) [#/Vol] 10*3/uL Normal <0.11 [facility] Comment on above: Order Comment: Speci men Type: BLOOD SPECIMENOrdering Facility: [facility] Address: [address] [address] Performed By: #### 5 7021-8 ####[facility]ATORYCLIA [id number] [address] Basophils/100 WBC (Bld) 0.2 % Normal [facility] Comment on above: Order Comment: Speci men Type: BLOOD SPECIMENOrdering Facility: [facility] Address: [address] [place] [address] Performed By: #### 5 7021-8 ####[facility]ORATORYCLIA [id number] [address] Differential cell count method Nom (Bld) Auto Normal [facility] Comment on above: Order Comment: Speci men Type: BLOOD SPECIMENOrdering Facility: [facility] Address: [address] [place] [address] Performed By: #### 5 7021-8 ####[facility]ORATORYCLIA [id number] [address] [place] Eosinophils (Bld) [#/Vol] 0.23 10*3/uL Normal <0.46 [facility] Comment on above: Order Comment: Speci men Type: BLOOD SPECIMENOrdering Facility: [facility] Address: [address] [place] [address] Performed By: #### 5 7021-8 ####[facility]ORATORYCLIA [id number] [address] Eosinophils/100 WBC (Bld) 2.7 % Normal [facility] Comment on above: Order Comment: Speci men Type: BLOOD SPECIMENOrdering Facility: [facility] Address: [address] [place] [address] Performed By: #### 5 7021-8 ####[facility]ATORYCLIA [id number] [address] [place] Erythrocyte distribution width (RBC) [Ratio] 16.6 % High 11.5-15.0 [facility] Comment on above: Order Comment: Speci men Type: BLOOD SPECIMENOrdering Facility: [facility] Address: [address] [place] [address] Performed By: #### 5 7021-8 ####[facility] LABORATORYCLIA [id number] [address] Hematocrit (Bld) [Volume fraction] 28.6 % Low 39.0-51.0 [facility] Comment on above: Order Comment: Speci men Type: BLOOD SPECIMENOrdering Facility: [facility] Address: [address] [place] [address] Performed By: #### 5 7021-8 ####[facility]ORATORYCLIA [id number] [address] Hemoglobin (Bld) [Mass/Vol] 9.0 g/dL Low 13.0-17.0 [facility] Comment on above: Order Comment: Speci men Type: BLOOD SPECIMENOrdering Facility: [facility] Address: [address] [place] [address] Performed By: #### 5 7021-8 ####[facility]ORATORYCLIA [id number] [address] IMMATURE GRAN % 0.2 % Normal [facility] Comment on above: Order Comment: Speci men Type: BLOOD SPECIMENOrdering Facility: [facility] Address: [address] [place] [address] Performed By: #### 5 7021-8 ####[facility]ORATORYCLIA [id number] [address] IMMATURE GRAN ABS <0.03 Normal <0.10 [facility] Comment on above: Order Comment: Speci men Type: BLOOD SPECIMENOrdering Facility: [facility] Address: [address] [place] [address] Performed By: #### 5 7021-8 ####[facility]ORATORYCLIA [id number] [place] [address] [place] Lymphocytes (Bld) [#/Vol] 1.33 10*3/uL Normal 1.00-4.00 [facility] Comment on above: Order Comment: Speci men Type: BLOOD SPECIMENOrdering Facility: [facility] Address: [address] [place] [address] Performed By: #### 5 7021-8 ####[facility]ORATORYCLIA [id number] [address] [place] Lymphocytes/100 WBC (Bld) 15.6 % Normal [facility] Comment on above: Order Comment: Speci men Type: BLOOD SPECIMENOrdering Facility: [facility] Address: [address] [place] [address] Performed By: #### 5 7021-8 ####[facility]ORATORYCLIA [id number] [address] [place] MCH (RBC) [Entitic mass] 29.0 pg Normal 26.0-34.0 [facility] Comment on above: Order Comment: Speci men Type: BLOOD SPECIMENOrdering Facility: [facility] Address: [address] [place] [address] Performed By: #### 5 7021-8 ####[facility]ORATORYCLIA [id number] [address] [place] MCHC (RBC) [Mass/Vol] 31.5 g/dL Normal 30.5-36.0 [facility] Comment on above: Order Comment: Speci men Type: BLOOD SPECIMENOrdering Facility: [facility] Address: [address] [place] [address] Performed By: #### 5 7021-8 ####[facility]ORATORYCLIA [id number] [address] [place] MCV (RBC) [Entitic vol] 92.3 fL Normal 80.0-100.0 [facility] Comment on above: Order Comment: Speci men Type: BLOOD SPECIMENOrdering Facility: [facility] Address: [address] [place] [address] Performed By: #### 5 7021-8 ####[facility]ORATORYCLIA [id number] [place] [address] [place] Monocytes (Bld) [#/Vol] 0.44 10*3/uL Normal <0.87 [facility] Comment on above: Order Comment: Speci men Type: BLOOD SPECIMENOrdering Facility: [facility] Address: [address] [place] [address] Performed By: #### 5 7021-8 ####[facility]ORATORYCLIA [id number] [address] [place] Monocytes/100 WBC (Bld) 5.2 % Normal [facility] Comment on above: Order Comment: Speci men Type: BLOOD SPECIMENOrdering Facility: [facility] Address: [address] [place] [address] Performed By: #### 5 7021-8 ####[facility]ORATORYCLIA [id number] [address] [place] Neutrophils (Bld) [#/Vol] 6.46 10*3/uL Normal 1.45-7.50 [facility] Comment on above: Order Comment: Speci men Type: BLOOD SPECIMENOrdering Facility: [facility] Address: [address] [place] [address] Performed By: #### 5 7021-8 ####[facility]ATORYCLIA [id number] [address] [place] Neutrophils/100 WBC (Bld) 76.1 % Normal [facility] Comment on above: Order Comment: Speci men Type: BLOOD SPECIMENOrdering Facility: [facility] Address: [address] [place] [address] Performed By: #### 5 7021-8 ####[facility]ATORYCLIA [id number] [place] [address] [place] Nucleated RBC (Bld) [#/Vol] 10*3/uL Normal <0.01 [facility] Comment on above: Order Comment: Speci men Type: BLOOD SPECIMENOrdering Facility: [facility] Address: [address] [place] [address] Performed By: #### 5 7021-8 ####[facility]ORATORYCLIA [id number] [address] Nucleated RBC/100 WBC (Bld) [Ratio] 0.0 /100 WBC Normal [facility] Comment on above: Order Comment: Speci men Type: BLOOD SPECIMENOrdering Facility: [facility] Address: [address] [place] [address] Performed By: #### 5 7021-8 ####[facility]ORATORYCLIA [id number] [address] [place] Platelet mean volume (Bld) [Entitic vol] 9.5 fL Normal 9.0-12.7 [facility] Comment on above: Order Comment: Speci men Type: BLOOD SPECIMENOrdering Facility: [facility] Address: [address] [place] [address] Performed By: #### 5 7021-8 ####[facility]ORATORYCLIA [id number] [address] [place] Platelets (Bld) [#/Vol] 247 10*3/uL Normal 150-400 [facility] Comment on above: Order Comment: Speci men Type: BLOOD SPECIMENOrdering Facility: [facility] Address: [address] [place], [place] [id number] Performed By: #### 5 7021-8 ####[facility]ORATORYCLIA [id number] [address] [place] RBC (Bld) [#/Vol] 3.10 10*6/uL Low 4.20-6.00 [facility] Comment on above: Order Comment: Speci men Type: BLOOD SPECIMENOrdering Facility: [facility] Address: [address] [place] [address] Performed By: #### 5 7021-8 ####[facility]ORATORYCLIA [id number] [address] [place] WBC (Bld) [#/Vol] 8.50 10*3/uL Normal 3.70-11.00 [facility] Comment on above: Order Comment: Speci men Type: BLOOD SPECIMENOrdering Facility: [facility] Address: [address] [place] [address] Performed By: #### 5 7021-8 ####[facility]ORATORYCLIA [id number] [place] [address] [place] CONSULTon 08-14-2021 CONSULT Normal [facility] NURSING PROGon 08-14-2021 NURSING PROG Normal [facility] CBC W Auto Differential pane l (Bld)on 08-13-2021 Basophils (Bld) [#/Vol] 10*3/uL Normal <0.11 [facility] Comment on above: Order Comment: Speci men Type: BLOOD SPECIMENOrdering Facility: [facility] Address: [address] [place] [address] Performed By: #### 5 7021-8 ####[facility]ORATORYCLIA [id number] [address] [place] Basophils/100 WBC (Bld) 0.2 % Normal [facility] Comment on above: Order Comment: Speci men Type: BLOOD SPECIMENOrdering Facility: [facility] Address: [address] [place] [address] Performed By: #### 5 7021-8 ####[facility]ORATORYCLIA [id number] [address] [place] Differential cell count method Nom (Bld) Auto Normal [facility] Comment on above: Order Comment: Speci men Type: BLOOD SPECIMENOrdering Facility: [facility] Address: [address] [place] [address] Performed By: #### 5 7021-8 ####[facility]ORATORYCLIA [id number] [place] [address] [place] Eosinophils (Bld) [#/Vol] 0.31 10*3/uL Normal <0.46 [facility] Comment on above: Order Comment: Speci men Type: BLOOD SPECIMENOrdering Facility: [facility] Address: [address] [place] [address] Performed By: #### 5 7021-8 ####[facility]ORATORYCLIA [id number] [address] [place] Eosinophils/100 WBC (Bld) 3.7 % Normal [facility] Comment on above: Order Comment: Speci men Type: BLOOD SPECIMENOrdering Facility: [facility] Address: [address] [place] [address] Performed By: #### 5 7021-8 ####[facility]ORATORYCLIA [id number] [address] [place] Erythrocyte distribution width (RBC) [Ratio] 16.6 % High 11.5-15.0 [facility] Comment on above: Order Comment: Speci men Type: BLOOD SPECIMENOrdering Facility: [facility] Address: [address] [place] [address] Performed By: #### 5 7021-8 ####[facility]ORATORYCLIA [id number] [address] [place] Hematocrit (Bld) [Volume fraction] 27.5 % Low 39.0-51.0 [facility] Comment on above: Order Comment: Speci men Type: BLOOD SPECIMENOrdering Facility: [facility] Address: [address] [place] [address] Performed By: #### 5 7021-8 ####[facility]ORATORYCLIA [id number] [address] [place] Hemoglobin (Bld) [Mass/Vol] 8.4 g/dL Low 13.0-17.0 [facility] Comment on above: Order Comment: Speci men Type: BLOOD SPECIMENOrdering Facility: [facility] Address: [address] [place] [address] Performed By: #### 5 7021-8 ####[facility]ATORYCLIA [id number] [address] IMMATURE GRAN % 0.5 % Normal [facility] Comment on above: Order Comment: Speci men Type: BLOOD SPECIMENOrdering Facility: [facility] Address: [address] [place] [address] Performed By: #### 5 7021-8 ####[facility]ORATORYCLIA [id number] [address] IMMATURE GRAN ABS 0.04 k/uL Normal <0.10 [facility] Comment on above: Order Comment: Speci men Type: BLOOD SPECIMENOrdering Facility: [facility] Address: [address] [place] [address] Performed By: #### 5 7021-8 ####[facility]ORATORYCLIA [id number] [address] Lymphocytes (Bld) [#/Vol] 1.55 10*3/uL Normal 1.00-4.00 [facility] Comment on above: Order Comment: Speci men Type: BLOOD SPECIMENOrdering Facility: [facility] Address: [address] [place] [address] Performed By: #### 5 7021-8 ####[facility]ORATORYCLIA [id number] [address] Lymphocytes/100 WBC (Bld) 18.7 % Normal [facility] Comment on above: Order Comment: Speci men Type: BLOOD SPECIMENOrdering Facility: [facility] Address: [address] [place] [address] Performed By: #### 5 7021-8 ####[facility]ORATORYCLIA [id number] [address] [place] MCH (RBC) [Entitic mass] 28.9 pg Normal 26.0-34.0 [facility] Comment on above: Order Comment: Speci men Type: BLOOD SPECIMENOrdering Facility: [facility] Address: [address] [place] [address] Performed By: #### 5 7021-8 ####[facility]ORATORYCLIA [id number] [address] [place] MCHC (RBC) [Mass/Vol] 30.5 g/dL Normal 30.5-36.0 [facility] Comment on above: Order Comment: Speci men Type: BLOOD SPECIMENOrdering Facility: [facility] Address: [address] [place] [address] Performed By: #### 5 7021-8 ####[facility]ORATORYCLIA [id number] [address] STATES OF [facility] MCV (RBC) [Entitic vol] 94.5 fL Normal 80.0-100.0 [facility] Comment on above: Order Comment: Speci men Type: BLOOD SPECIMENOrdering Facility: [facility] Address: [address] [place] [address] Performed By: #### 5 7021-8 ####[facility] LABORATORYCLIA [id number] [address] OF [facility] Monocytes (Bld) [#/Vol] 0.47 10*3/uL Normal <0.87 [facility] Comment on above: Order Comment: Speci men Type: BLOOD SPECIMENOrdering Facility: [facility] Address: [address] [place] [address] Performed By: #### 5 7021-8 ####[facility] LABORATORYCLIA [id number] [address] Monocytes/100 WBC (Bld) 5.7 % Normal [facility] Comment on above: Order Comment: Speci men Type: BLOOD SPECIMENOrdering Facility: [facility] Address: [address] [place] [address] Performed By: #### 5 7021-8 ####[facility] LABORATORYCLIA [id number] [address] [place] Neutrophils (Bld) [#/Vol] 5.92 10*3/uL Normal 1.45-7.50 [facility] Comment on above: Order Comment: Speci men Type: BLOOD SPECIMENOrdering Facility: [facility] Address: [address] [place] [address] Performed By: #### 5 7021-8 ####[facility] LABORATORYCLIA [id number] [address] Neutrophils/100 WBC (Bld) 71.2 % Normal [facility] Comment on above: Order Comment: Speci men Type: BLOOD SPECIMENOrdering Facility: [facility] Address: [address] [place] [address] Performed By: #### 5 7021-8 ####[facility] LABORATORYCLIA [id number] [address] [place] Nucleated RBC (Bld) [#/Vol] 10*3/uL Normal <0.01 [facility] Comment on above: Order Comment: Speci men Type: BLOOD SPECIMENOrdering Facility: [facility] Address: [address] [place] [address] Performed By: #### 5 7021-8 ####[facility] LABORATORYCLIA [id number] [address] Nucleated RBC/100 WBC (Bld) [Ratio] 0.0 /100 WBC Normal [facility] Comment on above: Order Comment: Speci men Type: BLOOD SPECIMENOrdering Facility: [facility] Address: [address] [place] [address] Performed By: #### 5 7021-8 ####[facility] LABORATORYCLIA [id number] [address] [place] Platelet mean volume (Bld) [Entitic vol] 9.9 fL Normal 9.0-12.7 [facility] Comment on above: Order Comment: Speci men Type: BLOOD SPECIMENOrdering Facility: [facility] Address: [address] [place] [address] Performed By: #### 5 7021-8 ####[facility] LABORATORYCLIA [id number] [place] [address] [place] Platelets (Bld) [#/Vol] 203 10*3/uL Normal 150-400 [facility] Comment on above: Order Comment: Speci men Type: BLOOD SPECIMENOrdering Facility: [facility] Address: [address] [place] [address] Performed By: #### 5 7021-8 ####[facility]ORATORYCLIA [id number] [place] [address] [place] RBC (Bld) [#/Vol] 2.91 10*6/uL Low 4.20-6.00 [facility] Comment on above: Order Comment: Speci men Type: BLOOD SPECIMENOrdering Facility: [facility] Address: [address] [place] [address] Performed By: #### 5 7021-8 ####[facility] LABORATORYCLIA [id number] [address] WBC (Bld) [#/Vol] 8.31 10*3/uL Normal 3.70-11.00 [facility] Comment on above: Order Comment: Speci men Type: BLOOD SPECIMENOrdering Facility: [facility] Address: [address] [place] [address] Performed By: #### 5 7021-8 ####[facility]ORATORYCLIA [id number] [address] [place] aPTT PPPon 08-13-2021 aPTT Coag (PPP) [Time] 69.7 s High 23.0-32.4 [facility] Comment on above: Order Comment: Speci men Type: BLOOD SPECIMENOrdering Facility: [facility] Address: [address] [place] [address] Performed By: #### 1 4979-9 ####[facility]ATORYCLIA [id number] [address] aPTT Coag (PPP) [Time] 70.6 s High 23.0-32.4 [facility] Comment on above: Order Comment: Speci men Type: BLOOD SPECIMENOrdering Facility: [facility] Address: [address] [place] [address] Performed By: #### 1 4979-9 ####[facility] LABORATORYCLIA [id number] [place] [address] [place] ALLIED HEALTHon 08-12-2021 ALLIED HEALTH Normal [facility] ALLIED HEALTH Normal [facility] Basic metabolic 2000 panelon 08-12-2021 Anion gap [Moles/Vol] 7 mmol/L Low 9-18 [facility] Comment on above: Order Comment: Speci men Type: BLOOD SPECIMENOrdering Facility: [facility] Address: [address] [place] [address] Performed By: #### 2 4321-2, , 2776-05 ####[facility]ORATORYCLIA [id number] [place] [address] [place] Calcium [Mass/Vol] 8.8 mg/dL Normal 8.5-10.2 [facility] Comment on above: Order Comment: Speci men Type: BLOOD SPECIMENOrdering Facility: [facility] Address: [address] [place] [address] Performed By: #### 2 4321-2, , 2776-05 ####[facility] LABORATORYCLIA [id number] [place] [address] [place] Chloride [Moles/Vol] 96 mmol/L Low 97-105 [facility] Comment on above: Order Comment: Speci men Type: BLOOD SPECIMENOrdering Facility: [facility] Address: [address] [address] Performed By: #### 2 4321-2, , 2776-05 ####[facility]ORATORYCLIA [id number] [place] [address] [place] CO2 [Moles/Vol] 32 mmol/L High 22-30 [facility] Comment on above: Order Comment: Speci men Type: BLOOD SPECIMENOrdering Facility: [facility] Address: [address] [place] [address] Performed By: #### 2 4321-2, 17821-4, 2776-05 ####[facility]STERCLIA [id number] [place] [id number] [place] [facility] Creatinine [Mass/Vol] 0.52 mg/dL Low 0.73-1.22 [facility] Comment on above: Order Comment: Speci men Type: BLOOD SPECIMENOrdering Facility: [facility] Address: [address] [address] Performed By: #### 2 4321-2, , 2776-05 ####[facility] MUNSTERCLIA [id number] [address] OF [facility] ESTIMATED GLOMERULAR FILTRATION RATE 109 mL/min/1.73m??? Normal >=60 [facility] Comment on above: Order Comment: Speccara feldman Type: BLOOD SPECIMENOrdering Facility: [facility] Address: [address] [address] Result Comment: Luzmaria mated Glomerular Filtration Rate [...] Performed By: #### 2 4321-2, , 2776-05 ####[facility] LABORATORYCLIA [id number] [address] [place] Glucose [Mass/Vol] 119 mg/dL High 74-99 [facility] Comment on above: Order Comment: Speci men Type: BLOOD SPECIMENOrdering Facility: [facility] Address: [address] Result Comment: The [place] [employer] (ADA) [...] Performed By: #### 2 4321-2, , 2776-05 ####[facility] LABORATORYCLIA [id number] [place] [address] [place] Potassium [Moles/Vol] 3.7 mmol/L Normal 3.7-5.1 [facility] Comment on above: Order Comment: Shira feldman Type: BLOOD SPECIMENOrdering Facility: [facility] Address: [address] [place] [address] Performed By: #### 2 4321-2, , 2776-05 ####[facility]ORATORYCLIA [id number] [address] [place] Sodium [Moles/Vol] 135 mmol/L Low 136-144 [facility] Comment on above: Order Comment: Shira feldman Type: BLOOD SPECIMENOrdering Facility: [facility] Address: [address] [place] [address] Performed By: #### 2 4321-2, , 2776-05 ####[facility]ORATORYCLIA [id number] [place] [address] [place] Urea nitrogen [Mass/Vol] 20 mg/dL Normal 9-24 [facility] Comment on above: Order Comment: Speci francia Type: BLOOD SPECIMENOrdering Facility: [facility] Address: [address] [place] [address] Performed By: #### 2 4321-2, , 2776-05 ####[facility] LABORATORYCLIA [id number] [place] [id number] [place] CASE MANAGEMon 08-12-2021 CASE MANAGEM Normal [facility] CBC W Auto Differential pane l (Bld)on 08-12-2021 Basophils (Bld) [#/Vol] 0.04 10*3/uL Normal <0.11 [facility] Comment on above: Order Comment: Speci men Type: BLOOD SPECIMENOrdering Facility: [facility] Address: [address] [place] [address] Performed By: #### 5 7021-8 ####[facility]ORATORYCLIA [id number] [address] [place] Basophils/100 WBC (Bld) 0.5 % Normal [facility] Comment on above: Order Comment: Speci men Type: BLOOD SPECIMENOrdering Facility: [facility] Address: [address] [place] [address] Performed By: #### 5 7021-8 ####[facility]ORATORYCLIA [id number] [address] OF [facility] Differential cell count method Nom (Bld) Auto Normal [facility] Comment on above: Order Comment: Speci men Type: BLOOD SPECIMENOrdering Facility: [facility] Address: [address] [place] [address] Performed By: #### 5 7021-8 ####[facility]ORATORYCLIA [id number] [place] [address] [place] Eosinophils (Bld) [#/Vol] 0.19 10*3/uL Normal <0.46 [facility] Comment on above: Order Comment: Speci men Type: BLOOD SPECIMENOrdering Facility: [facility] Address: [address] [place] [address] Performed By: #### 5 7021-8 ####[facility]ORATORYCLIA [id number] [address] Eosinophils/100 WBC (Bld) 2.3 % Normal [facility] Comment on above: Order Comment: Speci men Type: BLOOD SPECIMENOrdering Facility: [facility] Address: [address] [place] [address] Performed By: #### 5 7021-8 ####[facility]ORATORYCLIA [id number] [address] Erythrocyte distribution width (RBC) [Ratio] 17.1 % High 11.5-15.0 [facility] Comment on above: Order Comment: Speci men Type: BLOOD SPECIMENOrdering Facility: [facility] Address: [address] [place] [address] Performed By: #### 5 7021-8 ####[facility]ORATORYCLIA [id number] [address] Hematocrit (Bld) [Volume fraction] 25.3 % Low 39.0-51.0 [facility] Comment on above: Order Comment: Speci men Type: BLOOD SPECIMENOrdering Facility: [facility] Address: [address] [place] [address] Performed By: #### 5 7021-8 ####[facility]ORATORYCLIA [id number] [address] Hemoglobin (Bld) [Mass/Vol] 7.9 g/dL Low 13.0-17.0 [facility] Comment on above: Order Comment: Speci men Type: BLOOD SPECIMENOrdering Facility: [facility] Address: [address] [place] [address] Performed By: #### 5 7021-8 ####[facility]ORATORYCLIA [id number] [address] IMMATURE GRAN % 0.5 % Normal [facility] Comment on above: Order Comment: Speci men Type: BLOOD SPECIMENOrdering Facility: [facility] Address: [address] [place] [address] Performed By: #### 5 7021-8 ####[facility]ORATORYCLIA [id number] [address] IMMATURE GRAN ABS 0.04 k/uL Normal <0.10 [facility] Comment on above: Order Comment: Speci men Type: BLOOD SPECIMENOrdering Facility: [facility] Address: [address] [place] [address] Performed By: #### 5 7021-8 ####[facility]ORATORYCLIA [id number] [address] OF [facility] Lymphocytes (Bld) [#/Vol] 1.69 10*3/uL Normal 1.00-4.00 [facility] Comment on above: Order Comment: Speci men Type: BLOOD SPECIMENOrdering Facility: [facility] Address: [address] [place] [address] Performed By: #### 5 7021-8 ####[facility]ORATORYCLIA [id number] [address] Lymphocytes/100 WBC (Bld) 20.1 % Normal [facility] Comment on above: Order Comment: Speci men Type: BLOOD SPECIMENOrdering Facility: [facility] Address: [address] [place] [address] Performed By: #### 5 7021-8 ####[facility]ORATORYCLIA [id number] [address] OF [facility] MCH (RBC) [Entitic mass] 28.5 pg Normal 26.0-34.0 [facility] Comment on above: Order Comment: Speci men Type: BLOOD SPECIMENOrdering Facility: [facility] Address: [address] [place] [address] Performed By: #### 5 7021-8 ####[facility]ORATORYCLIA [id number] [address] OF [facility] MCHC (RBC) [Mass/Vol] 31.2 g/dL Normal 30.5-36.0 [facility] Comment on above: Order Comment: Speci men Type: BLOOD SPECIMENOrdering Facility: [facility] Address: [address] [place] [address] Performed By: #### 5 7021-8 ####[facility]ORATORYCLIA [id number] [address] MCV (RBC) [Entitic vol] 91.3 fL Normal 80.0-100.0 [facility] Comment on above: Order Comment: Speci men Type: BLOOD SPECIMENOrdering Facility: [facility] Address: [address] [place] [address] Performed By: #### 5 7021-8 ####[facility]ATORYCLIA [id number] [address] [place] Monocytes (Bld) [#/Vol] 0.53 10*3/uL Normal <0.87 [facility] Comment on above: Order Comment: Speci men Type: BLOOD SPECIMENOrdering Facility: [facility] Address: [address] [place] [address] Performed By: #### 5 7021-8 ####[facility]ATORYCLIA [id number] [address] [place] Monocytes/100 WBC (Bld) 6.3 % Normal [facility] Comment on above: Order Comment: Speci men Type: BLOOD SPECIMENOrdering Facility: [facility] Address: [address] [place] [address] Performed By: #### 5 7021-8 ####[facility]ATORYCLIA [id number] [address] [place] Neutrophils (Bld) [#/Vol] 5.90 10*3/uL Normal 1.45-7.50 [facility] Comment on above: Order Comment: Speci men Type: BLOOD SPECIMENOrdering Facility: [facility] Address: [address] [place] [address] Performed By: #### 5 7021-8 ####[facility]ATORYCLIA [id number] [address] [place] Neutrophils/100 WBC (Bld) 70.3 % Normal [facility] Comment on above: Order Comment: Speci men Type: BLOOD SPECIMENOrdering Facility: [facility] Address: [address] [place] [address] Performed By: #### 5 7021-8 ####[facility]ORATORYCLIA [id number] [address] [place] Nucleated RBC (Bld) [#/Vol] 10*3/uL Normal <0.01 [facility] Comment on above: Order Comment: Speci men Type: BLOOD SPECIMENOrdering Facility: [facility] Address: [address] [place] [address] Performed By: #### 5 7021-8 ####[facility]ORATORYCLIA [id number] [address] [place] Nucleated RBC/100 WBC (Bld) [Ratio] 0.0 /100 WBC Normal [facility] Comment on above: Order Comment: Speci men Type: BLOOD SPECIMENOrdering Facility: [facility] Address: [address] [place] [address] Performed By: #### 5 7021-8 ####[facility]ORATORYCLIA [id number] [address] [place] Platelet mean volume (Bld) [Entitic vol] 9.8 fL Normal 9.0-12.7 [facility] Comment on above: Order Comment: Speci men Type: BLOOD SPECIMENOrdering Facility: [facility] Address: [address] [place] [address] Performed By: #### 5 7021-8 ####[facility]ORATORYCLIA [id number] [address] [place] Platelets (Bld) [#/Vol] 164 10*3/uL Normal 150-400 [facility] Comment on above: Order Comment: Speci men Type: BLOOD SPECIMENOrdering Facility: [facility] Address: [address] [place] [address] Performed By: #### 5 7021-8 ####[facility]ORATORYCLIA [id number] [address] [place] RBC (Bld) [#/Vol] 2.77 10*6/uL Low 4.20-6.00 [facility] Comment on above: Order Comment: Speci men Type: BLOOD SPECIMENOrdering Facility: [facility] Address: [address] [place] [address] Performed By: #### 5 7021-8 ####[facility]ORATORYCLIA [id number] [address] OF [facility] WBC (Bld) [#/Vol] 8.39 10*3/uL Normal 3.70-11.00 [facility] Comment on above: Order Comment: Speci men Type: BLOOD SPECIMENOrdering Facility: [facility] Address: [address] [place] [address] Performed By: #### 5 7021-8 ####[facility]ORATORYCLIA [id number] [address] [facility] CT BRAIN WO IVCONon 08-13-19 CT BRAIN WO IVCON Normal [facility] CT BRAIN WO IVCON Normal [facility] Magnesium SerPl-mCncon 08-12 Magnesium [Mass/Vol] 2.0 mg/dL Normal 1.7-2.3 [facility] Comment on above: Order Comment: Speci men Type: BLOOD SPECIMENOrdering Facility: [facility] Address: [address] [place] [address] Performed By: #### 2 4321-2, , 2776-05 ####[facility]ORATORYCLIA [id number] [address] [place] Phosphate SerPl-mCncon 08-12 Phosphate [Mass/Vol] 2.9 mg/dL Normal 2.7-4.8 [facility] Comment on above: Order Comment: Speci men Type: BLOOD SPECIMENOrdering Facility: [facility] Address: [address] [place] [address] Performed By: #### 2 4321-2, , 2776-05 ####[facility]ATORYCLIA [id number] [address] [place] THERAPY NTon 08-12-2021 THERAPY NT Normal [facility] THERAPY NT Normal [facility] aPTT PPPon 08-12-2021 aPTT Coag (PPP) [Time] 94.2 s High 23.0-32.4 [facility] Comment on above: Order Comment: Speci men Type: BLOOD SPECIMENOrdering Facility: [facility] Address: [address] [place] [address] Performed By: #### 1 4979-9 ####[facility]ORATORYCLIA [id number] [address] STATES [facility] aPTT Coag (PPP) [Time] 84.4 s High 23.0-32.4 [facility] Comment on above: Order Comment: Speci men Type: BLOOD SPECIMENOrdering Facility: [facility] Address: [address] [place] [address] Performed By: #### 1 4979-9 ####[facility]ORATORYCLIA [id number] [address] aPTT Coag (PPP) [Time] 71.3 s High 23.0-32.4 [facility] Comment on above: Order Comment: Speci men Type: BLOOD SPECIMENOrdering Facility: [facility] Address: [address] [place] [address] Performed By: #### 1 4979-9 ####[facility]ORATORYCLIA [id number] [address] [place] ALLIED HEALTHon 08-11-2021 ALLIED HEALTH Normal [facility] CBC W Auto Differential pane l (Bld)on 08-11-2021 Basophils (Bld) [#/Vol] 10*3/uL Normal <0.11 [facility] Comment on above: Order Comment: Speci men Type: BLOOD SPECIMENOrdering Facility: [facility] Address: [address] [place] [address] Performed By: #### 5 7021-8 ####[facility]ORATORYCLIA [id number] [address] Basophils/100 WBC (Bld) 0.2 % Normal [facility] Comment on above: Order Comment: Speci men Type: BLOOD SPECIMENOrdering Facility: [facility] Address: [address] [place] [address] Performed By: #### 5 7021-8 ####[facility]ORATORYCLIA [id number] [address] Differential cell count method Nom (Bld) Auto Normal [facility] Comment on above: Order Comment: Speci men Type: BLOOD SPECIMENOrdering Facility: [facility] Address: [address] [place] [address] Performed By: #### 5 7021-8 ####[facility]ORATORYCLIA [id number] [address] [place] Eosinophils (Bld) [#/Vol] 0.16 10*3/uL Normal <0.46 [facility] Comment on above: Order Comment: Speci men Type: BLOOD SPECIMENOrdering Facility: [facility] Address: [address] [place] [address] Performed By: #### 5 7021-8 ####[facility]ORATORYCLIA [id number] [address] Eosinophils/100 WBC (Bld) 1.8 % Normal [facility] Comment on above: Order Comment: Speci men Type: BLOOD SPECIMENOrdering Facility: [facility] Address: [address] [place] [address] Performed By: #### 5 7021-8 ####[facility]ORATORYCLIA [id number] [address] [place] Erythrocyte distribution width (RBC) [Ratio] 17.3 % High 11.5-15.0 [facility] Comment on above: Order Comment: Speci men Type: BLOOD SPECIMENOrdering Facility: [facility] Address: [address] [place] [address] Performed By: #### 5 7021-8 ####[facility]ORATORYCLIA [id number] [address] [place] Hematocrit (Bld) [Volume fraction] 26.6 % Low 39.0-51.0 [facility] Comment on above: Order Comment: Speci men Type: BLOOD SPECIMENOrdering Facility: [facility] Address: [address] [place] [address] Performed By: #### 5 7021-8 ####[facility]ORATORYCLIA [id number] [place] [address] [place] Hemoglobin (Bld) [Mass/Vol] 8.2 g/dL Low 13.0-17.0 [facility] Comment on above: Order Comment: Speci men Type: BLOOD SPECIMENOrdering Facility: [facility] Address: [address] [place] [address] Performed By: #### 5 7021-8 ####[facility]ATORYCLIA [id number] [address] [place] IMMATURE GRAN % 0.6 % Normal [facility] Comment on above: Order Comment: Speci men Type: BLOOD SPECIMENOrdering Facility: [facility] Address: [address] [place] [address] Performed By: #### 5 7021-8 ####[facility]ORATORYCLIA [id number] [address] STATES [facility] IMMATURE GRAN ABS 0.05 k/uL Normal <0.10 [facility] Comment on above: Order Comment: Speci men Type: BLOOD SPECIMENOrdering Facility: [facility] Address: [address] [place] [address] Performed By: #### 5 7021-8 ####[facility]ORATORYCLIA [id number] [place] [address] [place] Lymphocytes (Bld) [#/Vol] 1.40 10*3/uL Normal 1.00-4.00 [facility] Comment on above: Order Comment: Speci men Type: BLOOD SPECIMENOrdering Facility: [facility] Address: [address] [place] [address] Performed By: #### 5 7021-8 ####[facility]ORATORYCLIA [id number] [address] Lymphocytes/100 WBC (Bld) 15.8 % Normal [facility] Comment on above: Order Comment: Speci men Type: BLOOD SPECIMENOrdering Facility: [facility] Address: [address] [place] [address] Performed By: #### 5 7021-8 ####[facility] LABORATORYCLIA [id number] [address] MCH (RBC) [Entitic mass] 28.4 pg Normal 26.0-34.0 [facility] Comment on above: Order Comment: Speci men Type: BLOOD SPECIMENOrdering Facility: [facility] Address: [address] [place] [address] Performed By: #### 5 7021-8 ####[facility] LABORATORYCLIA [id number] [address] MCHC (RBC) [Mass/Vol] 30.8 g/dL Normal 30.5-36.0 [facility] Comment on above: Order Comment: Speci men Type: BLOOD SPECIMENOrdering Facility: [facility] Address: [address] [place] [address] Performed By: #### 5 7021-8 ####[facility] LABORATORYCLIA [id number] [address] MCV (RBC) [Entitic vol] 92.0 fL Normal 80.0-100.0 [facility] Comment on above: Order Comment: Speci men Type: BLOOD SPECIMENOrdering Facility: [facility] Address: [address] [place] [address] Performed By: #### 5 7021-8 ####[facility] LABORATORYCLIA [id number] [address] Monocytes (Bld) [#/Vol] 0.61 10*3/uL Normal <0.87 [facility] Comment on above: Order Comment: Speci men Type: BLOOD SPECIMENOrdering Facility: [facility] Address: [address] [address] Performed By: #### 5 7021-8 ####[facility]ORATORYCLIA [id number] [address] [place] Monocytes/100 WBC (Bld) 6.9 % Normal [facility] Comment on above: Order Comment: Speci men Type: BLOOD SPECIMENOrdering Facility: [facility] Address: [address] [place] [address] Performed By: #### 5 7021-8 ####[facility]ORATORYCLIA [id number] [place] [address] [place] Neutrophils (Bld) [#/Vol] 6.62 10*3/uL Normal 1.45-7.50 [facility] Comment on above: Order Comment: Speci men Type: BLOOD SPECIMENOrdering Facility: [facility] Address: [address] [place] [address] Performed By: #### 5 7021-8 ####[facility] LABORATORYCLIA [id number] [address] [place] Neutrophils/100 WBC (Bld) 74.7 % Normal [facility] Comment on above: Order Comment: Speci men Type: BLOOD SPECIMENOrdering Facility: [facility] Address: [address] [place] [address] Performed By: #### 5 7021-8 ####[facility]ORATORYCLIA [id number] [place] [address] [place] Nucleated RBC (Bld) [#/Vol] 10*3/uL Normal <0.01 [facility] Comment on above: Order Comment: Speci men Type: BLOOD SPECIMENOrdering Facility: [facility] Address: [address] [place] [address] Performed By: #### 5 7021-8 ####[facility]ATORYCLIA [id number] [address] [place] Nucleated RBC/100 WBC (Bld) [Ratio] 0.0 /100 WBC Normal [facility] Comment on above: Order Comment: Speci men Type: BLOOD SPECIMENOrdering Facility: [facility] Address: [address] [place] [address] Performed By: #### 5 7021-8 ####[facility] LABORATORYCLIA [id number] [address] [place] Platelet mean volume (Bld) [Entitic vol] 9.8 fL Normal 9.0-12.7 [facility] Comment on above: Order Comment: Speci men Type: BLOOD SPECIMENOrdering Facility: [facility] Address: [address] [place] [address] Performed By: #### 5 7021-8 ####[facility] LABORATORYCLIA [id number] [address] [place] Platelets (Bld) [#/Vol] 157 10*3/uL Normal 150-400 [facility] Comment on above: Order Comment: Speci men Type: BLOOD SPECIMENOrdering Facility: [facility] Address: [address] [place] [address] Performed By: #### 5 7021-8 ####[facility] LABORATORYCLIA [id number] [place] [address] [place] RBC (Bld) [#/Vol] 2.89 10*6/uL Low 4.20-6.00 [facility] Comment on above: Order Comment: Speci men Type: BLOOD SPECIMENOrdering Facility: [facility] Address: [address] [place], [place] [address] Performed By: #### 5 7021-8 ####[facility] LABORATORYCLIA [id number] [place] [address] [place] WBC (Bld) [#/Vol] 8.86 10*3/uL Normal 3.70-11.00 [facility] Comment on above: Order Comment: Speci men Type: BLOOD SPECIMENOrdering Facility: [facility] Address: [address] [place], [place] [address] Performed By: #### 5 7021-8 ####[facility] LABORATORYCLIA [id number] [address] CBC panel Auto (Bld)on 08-11 Erythrocyte distribution width (RBC) [Ratio] 17.2 % High 11.5-15.0 [facility] Comment on above: Order Comment: Speci men Type: BLOOD SPECIMENOrdering Facility: [facility] Address: [address] [place] [address] Performed By: #### 5 8410-2 ####[facility] LABORATORYCLIA [id number] [address] Hematocrit (Bld) [Volume fraction] 27.0 % Low 39.0-51.0 [facility] Comment on above: Order Comment: Speci men Type: BLOOD SPECIMENOrdering Facility: [facility] Address: [address] [place] [address] Performed By: #### 5 8410-2 ####[facility]ORATORYCLIA [id number] [address] Hemoglobin (Bld) [Mass/Vol] 8.3 g/dL Low 13.0-17.0 [facility] Comment on above: Order Comment: Speci men Type: BLOOD SPECIMENOrdering Facility: [facility] Address: [address] [place] [address] Performed By: #### 5 8410-2 ####[facility] LABORATORYCLIA [id number] [address] STATES [facility] MCH (RBC) [Entitic mass] 28.7 pg Normal 26.0-34.0 [facility] Comment on above: Order Comment: Speci men Type: BLOOD SPECIMENOrdering Facility: [facility] Address: [address] [place] [address] Performed By: #### 5 8410-2 ####[facility]ORATORYCLIA [id number] [address] MCHC (RBC) [Mass/Vol] 30.7 g/dL Normal 30.5-36.0 [facility] Comment on above: Order Comment: Speci men Type: BLOOD SPECIMENOrdering Facility: [facility] Address: [facility] [address] Performed By: #### 5 8410-2 ####[facility]ORATORYCLIA [id number] [address] MCV (RBC) [Entitic vol] 93.4 fL Normal 80.0-100.0 [facility] Comment on above: Order Comment: Speci men Type: BLOOD SPECIMENOrdering Facility: [facility] Address: [address] [place] [address] Performed By: #### 5 8410-2 ####[facility]ORATORYCLIA [id number] [address] [place] Nucleated RBC (Bld) [#/Vol] 10*3/uL Normal <0.01 [facility] Comment on above: Order Comment: Speci men Type: BLOOD SPECIMENOrdering Facility: [facility] Address: [address] [place], [place] [address] Performed By: #### 5 8410-2 ####[facility]ORATORYCLIA [id number] [address] Platelet mean volume (Bld) [Entitic vol] 9.8 fL Normal 9.0-12.7 [facility] Comment on above: Order Comment: Speci men Type: BLOOD SPECIMENOrdering Facility: [facility] Address: [address] [place], [place] [address] Performed By: #### 5 8410-2 ####[facility]ORATORYCLIA [id number] [address] [place] Platelets (Bld) [#/Vol] 169 10*3/uL Normal 150-400 [facility] Comment on above: Order Comment: Speci men Type: BLOOD SPECIMENOrdering Facility: [facility] Address: [address] [place], [place] [address] Performed By: #### 5 8410-2 ####[facility] LABORATORYCLIA [id number] [address] [place] RBC (Bld) [#/Vol] 2.89 10*6/uL Low 4.20-6.00 [facility] Comment on above: Order Comment: Shira feldman Type: BLOOD SPECIMENOrdering Facility: [facility] Address: [address] [place] [address] Performed By: #### 5 8410-2 ####[facility]ORATORYCLIA [id number] [address] WBC (Bld) [#/Vol] 9.03 10*3/uL Normal 3.70-11.00 [facility] Comment on above: Order Comment: Shira feldman Type: BLOOD SPECIMENOrdering Facility: [facility] Address: [address] [place] [address] Performed By: #### 5 8410-2 ####[facility]ORATORYCLIA [id number] [address] BRAIN WO IVCONon 08-12-19 CT BRAIN WO IVCON Normal [facility] PT panel Coag (PPP)on 2021 INR Coag (PPP) [Relative time] 1.0 {INR} Normal 0.9-1.3 [facility] Comment on above: Order Comment: Shira feldman Type: BLOOD SPECIMENOrdering Facility: [facility] Address: [address] [place] [address] Result Comment: Yris min K Antagonist (VKA) [...] al. Chest 2012, 141:7S-47SNishimura RA, et al. [facility] 2017, 70: 252-289 Performed By: #### 1 4979-9, 45925-4 ####[facility]ORATORYCLIA [id number] [address] OF [facility] PT Coag (PPP) [Time] 11.4 s Normal 9.7-13.0 [facility] Comment on above: Order Comment: Speci men Type: BLOOD SPECIMENOrdering Facility: [facility] Address: [address] [address] Performed By: #### 1 4979-9, 32510-9 ####[facility]ORATORYCLIA [id number] [address] THERAPY NTon 08-11-2021 THERAPY NT Normal [...] Comment: Speci men Type: BLOOD SPECIMENOrdering Facility: [facility] Address: [address] [address] Performed By: #### 1 4979-9, 73171-9 ####[facility]ORATORYCLIA [id number] [address] OF [facility] Basic metabolic 2000 panelon 08-10-2021 Anion gap [Moles/Vol] 11 mmol/L Normal 9-18 [facility] Comment on above: Order Comment: Speci men Type: BLOOD SPECIMENOrdering Facility: [facility] Address: [address] [address] Performed By: #### 2 4321-2 ####[facility]ATORYCLIA [id number] [place] [address] [place] Calcium [Mass/Vol] 8.7 mg/dL Normal 8.5-10.2 [facility] Comment on above: Order Comment: Speci men Type: BLOOD SPECIMENOrdering Facility: [facility] Address: [address] [place] [address] Performed By: #### 2 4321-2 ####[facility]ORATORYCLIA [id number] [place] [address] [place] Chloride [Moles/Vol] 98 mmol/L Normal 97-105 [facility] Comment on above: Order Comment: Speci men Type: BLOOD SPECIMENOrdering Facility: [facility] Address: [address] [place] [address] Performed By: #### 2 4321-2 ####[facility]ORATORYCLIA [id number] [address] [place] CO2 [Moles/Vol] 28 mmol/L Normal 22-30 [facility] Comment on above: Order Comment: Speci men Type: BLOOD SPECIMENOrdering Facility: [facility] Address: [address] [place] [address] Performed By: #### 2 4321-2 ####[facility]ORATORYCLIA [id number] [address] [place] Creatinine [Mass/Vol] 0.59 mg/dL Low 0.73-1.22 [facility] Comment on above: Order Comment: Speci men Type: BLOOD SPECIMENOrdering Facility: [facility] Address: [address] [place] [address] Performed By: #### 2 4321-2 ####[facility]ORATORYCLIA [id number] [address] ESTIMATED GLOMERULAR FILTRATION RATE 105 mL/min/1.73m??? Normal >=60 [facility] Comment on above: Order Comment: Speci men Type: BLOOD SPECIMENOrdering Facility: [facility] Address: [address] [place], [place] [address] Result Comment: Luzmaria mated Glomerular Filtration Rate [...] actual GFR. Performed By: #### 2 4321-2 ####[facility]ORATORYCLIA [id number] [place] [address] [place] Glucose [Mass/Vol] 118 mg/dL High 74-99 [facility] Comment on above: Order Comment: Shira feldman Type: BLOOD SPECIMENOrdering Facility: [facility] Address: [address] [place] [address] Result Comment: The [place] [employer] (ADA) [...] 2016.39(Suppl 1). Performed By: #### 2 4321-2 ####[facility]ORATORYCLIA [id number] [place] [address] [place] Potassium [Moles/Vol] 3.7 mmol/L Normal 3.7-5.1 [facility] Comment on above: Order Comment: Shira feldman Type: BLOOD SPECIMENOrdering Facility: [facility] Address: [address] [phone] Performed By: #### 2 4321-2 ####[facility]ORATORYCLIA [id number] [place] [address] [place] Sodium [Moles/Vol] 137 mmol/L Normal 136-144 [facility] Comment on above: Order Comment: Speci men Type: BLOOD SPECIMENOrdering Facility: [facility] Address: [address] [place] [address] Performed By: #### 2 4321-2 ####[facility]ORATORYCLIA [id number] [place] [address] [place] Urea nitrogen [Mass/Vol] 23 mg/dL Normal 9-24 [facility] Comment on above: Order Comment: Speci men Type: BLOOD SPECIMENOrdering Facility: [facility] Address: [address] [place] [address] Performed By: #### 2 4321-2 ####[facility]ORATORYCLIA [id number] [place] [address] [place] Anion gap [Moles/Vol] 17 mmol/L Normal 9-18 [facility] Comment on above: Order Comment: Speci men Type: BLOOD SPECIMENOrdering Facility: [facility] Address: [address] [place] [address] Performed By: #### 1 9123-9, 2777-1, 07607-0 ####[facility]ORATORYCLIA [id number] [place] [address] [place] Calcium [Mass/Vol] 7.7 mg/dL Low 8.5-10.2 [facility] Comment on above: Order Comment: Speci men Type: BLOOD SPECIMENOrdering Facility: [facility] Address: [address] [address] Performed By: #### 1 9123-9, 2777-1, 85608-3 ####[facility]ORATORYCLIA [id number] [place] [address] [place] Chloride [Moles/Vol] 86 mmol/L Low 97-105 [facility] Comment on above: Order Comment: Speci men Type: BLOOD SPECIMENOrdering Facility: [facility] Address: [address] [place] [address] Performed By: #### 1 9123-9, 2777-, 22376-9 ####[facility]ORATORYCLIA [id number] [place] [address] [place] CO2 [Moles/Vol] 24 mmol/L Normal 22-30 [facility] Comment on above: Order Comment: Speci men Type: BLOOD SPECIMENOrdering Facility: [facility] Address: [address] [place] [address] Performed By: #### 1 9123-9, 2777, 32850-4 ####[facility]ORATORYCLIA [id number] [address] STATES OF [facility] Creatinine [Mass/Vol] 0.53 mg/dL Low 0.73-1.22 [facility] Comment on above: Order Comment: Speci men Type: BLOOD SPECIMENOrdering Facility: [facility] Address: [address] [place] [address] Performed By: #### 1 9123-9, 2777, ####[facility]PITALIA [id number] [address] STATES OF [facility] ESTIMATED GLOMERULAR FILTRATION RATE 108 mL/min/1.73m??? Normal >=60 [facility] Comment on above: Order Comment: Speci men Type: BLOOD SPECIMENOrdering Facility: [facility] Address: [address] [place] [address] Result Comment: Luzmaria mated Glomerular Filtration Rate [...] GFR. Performed By: #### 1 9123-9, 2777-1, 99085-1 ####[facility]ORATORYCLIA [id number] [place] [address] [place] Glucose [Mass/Vol] 455 mg/dL High 74-99 [facility] Comment on above: Order Comment: Shira feldman Type: BLOOD SPECIMENOrdering Facility: [facility] Address: [address] [place], [place] [phone] Result Comment: The [place] [employer] (ADA) [...] 1). Performed By: #### 1 9123-9, 2777-, 67048-6 ####[facility]ORATORYCLIA [id number] [place] [address] [place] Potassium [Moles/Vol] 3.4 mmol/L Low 3.7-5.1 [facility] Comment on above: Order Comment: Shira feldman Type: BLOOD SPECIMENOrdering Facility: [facility] Address: [address] [place], [place] [address] Performed By: #### 1 9123-9, 2777-, 03034-3 ####[facility]ORATORYCLIA [id number] [place] [address] [place] Sodium [Moles/Vol] 127 mmol/L Low 136-144 [facility] Comment on above: Order Comment: Shira feldman Type: BLOOD SPECIMENOrdering Facility: [facility] Address: [address] [place], [place] [phone] Performed By: #### 1 9123-9, 2777-, 22140-7 ####[facility]ORATORYCLIA [id number] [place] [address] [place] Urea nitrogen [Mass/Vol] 21 mg/dL Normal 9-24 [facility] Comment on above: Order Comment: Speci men Type: BLOOD SPECIMENOrdering Facility: [facility] Address: [address] [place] [address] Performed By: #### 1 9123-9, 2777-1, 55325-5 ####[facility]ORATORYCLIA [id number] [address] [place] CASE MANAGEMon 08-10-2021 CASE MANAGEM Normal [facility] CBC W Auto Differential pane l (Bld)on 08-10-2021 Basophils (Bld) [#/Vol] 0.04 10*3/uL Normal <0.11 [facility] Comment on above: Order Comment: Speci men Type: BLOOD SPECIMENOrdering Facility: [facility] Address: [address] [place] [address] Performed By: #### 5 7021-8 ####[facility]ORATORYCLIA [id number] [address] [place] Basophils/100 WBC (Bld) 0.4 % Normal [facility] Comment on above: Order Comment: Speci men Type: BLOOD SPECIMENOrdering Facility: [facility] Address: [address] [place] [address] Performed By: #### 5 7021-8 ####[facility]ORATORYCLIA [id number] [address] [place] Differential cell count method Nom (Bld) Auto Normal [facility] Comment on above: Order Comment: Speci men Type: BLOOD SPECIMENOrdering Facility: [facility] Address: [address] [place] [address] Performed By: #### 5 7021-8 ####[facility] LABORATORYCLIA [id number] [place] [address] [place] Eosinophils (Bld) [#/Vol] 0.11 10*3/uL Normal <0.46 [facility] Comment on above: Order Comment: Speci men Type: BLOOD SPECIMENOrdering Facility: [facility] Address: [address] [place] [address] Performed By: #### 5 7021-8 ####[facility]ORATORYCLIA [id number] [address] STATES [facility] Eosinophils/100 WBC (Bld) 1.1 % Normal [facility] Comment on above: Order Comment: Speci men Type: BLOOD SPECIMENOrdering Facility: [facility] Address: [address] [place] [address] Performed By: #### 5 7021-8 ####[facility]ORATORYCLIA [id number] [address] Erythrocyte distribution width (RBC) [Ratio] 17.2 % High 11.5-15.0 [facility] Comment on above: Order Comment: Speci men Type: BLOOD SPECIMENOrdering Facility: [facility] Address: [address] [place] [address] Performed By: #### 5 7021-8 ####[facility]ORATORYCLIA [id number] [address] Hematocrit (Bld) [Volume fraction] 25.5 % Low 39.0-51.0 [facility] Comment on above: Order Comment: Speci men Type: BLOOD SPECIMENOrdering Facility: [facility] Address: [address] [place] [address] Performed By: #### 5 7021-8 ####[facility]ORATORYCLIA [id number] [address] [place] Hemoglobin (Bld) [Mass/Vol] 7.9 g/dL Low 13.0-17.0 [facility] Comment on above: Order Comment: Speci men Type: BLOOD SPECIMENOrdering Facility: [facility] Address: [address] [place] [address] Performed By: #### 5 7021-8 ####[facility]ORATORYCLIA [id number] [address] [place] IMMATURE GRAN % 0.4 % Normal [facility] Comment on above: Order Comment: Speci men Type: BLOOD SPECIMENOrdering Facility: [facility] Address: [address] [place] [address] Performed By: #### 5 7021-8 ####[facility]ORATORYCLIA [id number] [address] IMMATURE GRAN ABS 0.04 k/uL Normal <0.10 [facility] Comment on above: Order Comment: Speci men Type: BLOOD SPECIMENOrdering Facility: [facility] Address: [address] [place] [address] Performed By: #### 5 7021-8 ####[facility]ORATORYCLIA [id number] [address] Lymphocytes (Bld) [#/Vol] 1.66 10*3/uL Normal 1.00-4.00 [facility] Comment on above: Order Comment: Speci men Type: BLOOD SPECIMENOrdering Facility: [facility] Address: [address] [place] [address] Performed By: #### 5 7021-8 ####[facility]ORATORYCLIA [id number] [address] Lymphocytes/100 WBC (Bld) 16.2 % Normal [facility] Comment on above: Order Comment: Speci men Type: BLOOD SPECIMENOrdering Facility: [facility] Address: [address] [place] [address] Performed By: #### 5 7021-8 ####[facility]ORATORYCLIA [id number] [address] MCH (RBC) [Entitic mass] 28.5 pg Normal 26.0-34.0 [facility] Comment on above: Order Comment: Speci men Type: BLOOD SPECIMENOrdering Facility: [facility] Address: [address] [place] [address] Performed By: #### 5 7021-8 ####[facility]ORATORYCLIA [id number] [address] MCHC (RBC) [Mass/Vol] 31.0 g/dL Normal 30.5-36.0 [facility] Comment on above: Order Comment: Speci men Type: BLOOD SPECIMENOrdering Facility: [facility] Address: [address] [place] [address] Performed By: #### 5 7021-8 ####[facility]ORATORYCLIA [id number] [address] [place] MCV (RBC) [Entitic vol] 92.1 fL Normal 80.0-100.0 [facility] Comment on above: Order Comment: Speci men Type: BLOOD SPECIMENOrdering Facility: [facility] Address: [address] [place] [address] Performed By: #### 5 7021-8 ####[facility]ORATORYCLIA [id number] [address] [place] Monocytes (Bld) [#/Vol] 0.51 10*3/uL Normal <0.87 [facility] Comment on above: Order Comment: Speci men Type: BLOOD SPECIMENOrdering Facility: [facility] Address: [address] [place] [address] Performed By: #### 5 7021-8 ####[facility]ORATORYCLIA [id number] [address] [place] Monocytes/100 WBC (Bld) 5.0 % Normal [facility] Comment on above: Order Comment: Speci men Type: BLOOD SPECIMENOrdering Facility: [facility] Address: [address] [place] [address] Performed By: #### 5 7021-8 ####[facility] LABORATORYCLIA [id number] [address] [place] Neutrophils (Bld) [#/Vol] 7.91 10*3/uL High 1.45-7.50 [facility] Comment on above: Order Comment: Speci men Type: BLOOD SPECIMENOrdering Facility: [facility] Address: [address] [place] [address] Performed By: #### 5 7021-8 ####[facility] LABORATORYCLIA [id number] [address] [place] Neutrophils/100 WBC (Bld) 76.9 % Normal [facility] Comment on above: Order Comment: Speci men Type: BLOOD SPECIMENOrdering Facility: [facility] Address: [address] [place] [address] Performed By: #### 5 7021-8 ####[facility] LABORATORYCLIA [id number] [address] [place] Nucleated RBC (Bld) [#/Vol] 10*3/uL Normal <0.01 [facility] Hospital Comment on above: Order Comment: Speci men Type: BLOOD SPECIMENOrdering Facility: [facility] Address: [address] [place] [address] Performed By: #### 5 7021-8 ####[facility] LABORATORYCLIA [id number] [address] Nucleated RBC/100 WBC (Bld) [Ratio] 0.0 /100 WBC Normal [facility] Comment on above: Order Comment: Speci men Type: BLOOD SPECIMENOrdering Facility: [facility] Address: [address] [place] [address] Performed By: #### 5 7021-8 ####[facility] LABORATORYCLIA [id number] [address] [place] Platelet mean volume (Bld) [Entitic vol] 10.3 fL Normal 9.0-12.7 [facility] Comment on above: Order Comment: Speci men Type: BLOOD SPECIMENOrdering Facility: [facility] Address: [address] [place] [address] Performed By: #### 5 7021-8 ####[facility] LABORATORYCLIA [id number] [address] [place] Platelets (Bld) [#/Vol] 152 10*3/uL Normal 150-400 [facility] Comment on above: Order Comment: Speci men Type: BLOOD SPECIMENOrdering Facility: [facility] Address: [address] [place] [address] Performed By: #### 5 7021-8 ####[facility] LABORATORYCLIA [id number] [address] OF [facility] RBC (Bld) [#/Vol] 2.77 10*6/uL Low 4.20-6.00 [facility] Comment on above: Order Comment: Speci men Type: BLOOD SPECIMENOrdering Facility: [facility] Address: [address] [place] [address] Performed By: #### 5 7021-8 ####[facility] LABORATORYCLIA [id number] [address] WBC (Bld) [#/Vol] 10.27 10*3/uL Normal 3.70-11.00 [facility] Comment on above: Order Comment: Speci men Type: BLOOD SPECIMENOrdering Facility: [facility] Address: [address] [place] [address] Performed By: #### 5 7021-8 ####[facility] LABORATORYCLIA [id number] [address] Magnesium SerPl-mCncon 08-10 Magnesium [Mass/Vol] 1.8 mg/dL Normal 1.7-2.3 [facility] Comment on above: Order Comment: Speci men Type: BLOOD SPECIMENOrdering Facility: [facility] Address: [address] [place] [address] Performed By: #### 1 9123-9, 2777-1, 97182-9 ####[facility] LABORATORYCLIA [id number] [address] NURSING PROGon 08-10-2021 NURSING PROG Normal [facility] NURSING PROG Normal [facility] NUTRITIONon 08-10-2021 NUTRITION Normal [facility] Phosphate SerPl-mCncon 08-10 Phosphate [Mass/Vol] 3.7 mg/dL Normal 2.7-4.8 [facility] Comment on above: Order Comment: Speci men Type: BLOOD SPECIMENOrdering Facility: [facility] Address: [address] [place] [address] Performed By: #### 1 9123-9, 2776-, 66152-0 ####[facility] LABORATORYCLIA [id number] [place] [address] [place] ALLIED HEALTHon 08-09-2021 [...] Comment: Speci men Type: BLOOD SPECIMENOrdering Facility: [facility] Address: [address] [place] [address] Performed By: #### 2 4321-2, , 2776-05 ####[facility] LABORATORYCLIA [id number] [place] [address] [place] Calcium [Mass/Vol] 9.2 mg/dL Normal 8.5-10.2 [facility] Comment on above: Order Comment: Speci men Type: BLOOD SPECIMENOrdering Facility: [facility] Address: [address] [place] [address] Performed By: #### 2 4321-2, , 2776-05 ####[facility] LABORATORYCLIA [id number] [place] [address] [place] Chloride [Moles/Vol] 97 mmol/L Normal 97-105 [facility] Comment on above: Order Comment: Speci men Type: BLOOD SPECIMENOrdering Facility: [facility] Address: [address] [place] [address] Performed By: #### 2 4321-2, , 2776-05 ####[facility]STERCLIA [id number] [place] [address] [place] CO2 [Moles/Vol] 30 mmol/L Normal 22-30 [facility] Comment on above: Order Comment: Speci men Type: BLOOD SPECIMENOrdering Facility: [facility] Address: [address] [place] [address] Performed By: #### 2 4321-2, , 2776-05 ####[facility] MUNSTERCLIA [id number] [place] [id number] [place] [facility] Creatinine [Mass/Vol] 0.51 mg/dL Low 0.73-1.22 [facility] Comment on above: Order Comment: Speci men Type: BLOOD SPECIMENOrdering Facility: [facility] Address: [address] [place] [address] Performed By: #### 2 4321-2, , 2776-05 ####[facility]ITALIA [id number] [address] ESTIMATED GLOMERULAR FILTRATION RATE 110 mL/min/1.73m??? Normal >=60 [facility] Comment on above: Order Comment: Speci men Type: BLOOD SPECIMENOrdering Facility: [facility] Address: [address] [place] [address] Result Comment: Luzmaria mated Glomerular Filtration Rate [...] Performed By: #### 2 4321-2, , 2776-05 ####[facility] LABORATORYCLIA [id number] [place] [id number] [place] Glucose [Mass/Vol] 106 mg/dL High 74-99 [facility] Comment on above: Order Comment: Speci men Type: BLOOD SPECIMENOrdering Facility: [facility] Address: [address] [place], [place] [address] Result Comment: The [place] [employer] (ADA) [...] Performed By: #### 2 4321-2, , 2776-05 ####[facility] LABORATORYCLIA [id number] [place] [address] [place] Potassium [Moles/Vol] 4.1 mmol/L Normal 3.7-5.1 [facility] Comment on above: Order Comment: Shira francia Type: BLOOD SPECIMENOrdering Facility: [facility] Address: [address] [place], [place] [address] Performed By: #### 2 4321-2, , 2776-05 ####[facility] LABORATORYCLIA [id number] [place] [address] [place] Sodium [Moles/Vol] 135 mmol/L Low 136-144 [facility] Comment on above: Order Comment: Shira feldman Type: BLOOD SPECIMENOrdering Facility: [facility] Address: [address] [place], [place] [phone] Performed By: #### 2 4321-2, , 2776-05 ####[facility] LABORATORYCLIA [id number] [place] [address] [place] Urea nitrogen [Mass/Vol] 26 mg/dL High 9-24 [facility] Comment on above: Order Comment: Johni men Type: BLOOD SPECIMENOrdering Facility: [facility] Address: [address] [place] [address] Performed By: #### 2 4321-2, 70970-3, 2777-1 ####[facility] LABORATORYCLIA [id number] [address] STATES [facility] CBC W Auto Differential pane l (Bld)on 08-09-2021 Basophils (Bld) [#/Vol] 0.06 10*3/uL Normal <0.11 [facility] Comment on above: Order Comment: Speci men Type: BLOOD SPECIMENOrdering Facility: [facility] Address: [address] [place] [address] Performed By: #### 5 7021-8 ####[facility] LABORATORYCLIA [id number] [address] [place] Basophils/100 WBC (Bld) 0.5 % Normal [facility] Comment on above: Order Comment: Speci men Type: BLOOD SPECIMENOrdering Facility: [facility] Address: [address] [place] [address] Performed By: #### 5 7021-8 ####[facility] LABORATORYCLIA [id number] [address] Differential cell count method Nom (Bld) Auto Normal [facility] Comment on above: Order Comment: Speci men Type: BLOOD SPECIMENOrdering Facility: [facility] Address: [address] [place] [address] Performed By: #### 5 7021-8 ####[facility] LABORATORYCLIA [id number] [address] [place] Eosinophils (Bld) [#/Vol] 0.42 10*3/uL Normal <0.46 [facility] Comment on above: Order Comment: Speci men Type: BLOOD SPECIMENOrdering Facility: [facility] Address: [address] [place] [address] Performed By: #### 5 7021-8 ####[facility] LABORATORYCLIA [id number] [address] Eosinophils/100 WBC (Bld) 3.8 % Normal [facility] Comment on above: Order Comment: Speci men Type: BLOOD SPECIMENOrdering Facility: [facility] Address: [address] [place] [address] Performed By: #### 5 7021-8 ####[facility] LABORATORYCLIA [id number] [address] Erythrocyte distribution width (RBC) [Ratio] 17.6 % High 11.5-15.0 [facility] Comment on above: Order Comment: Speci men Type: BLOOD SPECIMENOrdering Facility: [facility] Address: [address] [place] [address] Performed By: #### 5 7021-8 ####[facility] LABORATORYCLIA [id number] [address] Hematocrit (Bld) [Volume fraction] 29.3 % Low 39.0-51.0 [facility] Comment on above: Order Comment: Speci men Type: BLOOD SPECIMENOrdering Facility: [facility] Address: [address] [place] [address] Performed By: #### 5 7021-8 ####[facility] LABORATORYCLIA [id number] [address] [place] Hemoglobin (Bld) [Mass/Vol] 9.0 g/dL Low 13.0-17.0 [facility] Comment on above: Order Comment: Speci men Type: BLOOD SPECIMENOrdering Facility: [facility] Address: [address] [place] [address] Performed By: #### 5 7021-8 ####[facility] LABORATORYCLIA [id number] [address] [place] IMMATURE GRAN % 0.5 % Normal [facility] Comment on above: Order Comment: Speci men Type: BLOOD SPECIMENOrdering Facility: [facility] Address: [address] [place] [address] Performed By: #### 5 7021-8 ####[facility] LABORATORYCLIA [id number] [address] IMMATURE GRAN ABS 0.05 k/uL Normal <0.10 [facility] Comment on above: Order Comment: Speci men Type: BLOOD SPECIMENOrdering Facility: [facility] Address: [address] [place] [address] Performed By: #### 5 7021-8 ####[facility] LABORATORYCLIA [id number] [address] Lymphocytes (Bld) [#/Vol] 2.00 10*3/uL Normal 1.00-4.00 [facility] Comment on above: Order Comment: Speci men Type: BLOOD SPECIMENOrdering Facility: [facility] Address: [address] [place] [address] Performed By: #### 5 7021-8 ####[facility] LABORATORYCLIA [id number] [address] Lymphocytes/100 WBC (Bld) 18.1 % Normal [facility] Comment on above: Order Comment: Speci men Type: BLOOD SPECIMENOrdering Facility: [facility] Address: [address] [place] [address] Performed By: #### 5 7021-8 ####[facility] LABORATORYCLIA [id number] [address] MCH (RBC) [Entitic mass] 28.1 pg Normal 26.0-34.0 [facility] Comment on above: Order Comment: Speci men Type: BLOOD SPECIMENOrdering Facility: [facility] Address: [address] [place] [address] Performed By: #### 5 7021-8 ####[facility] LABORATORYCLIA [id number] [address] MCHC (RBC) [Mass/Vol] 30.7 g/dL Normal 30.5-36.0 [facility] Comment on above: Order Comment: Speci men Type: BLOOD SPECIMENOrdering Facility: [facility] Address: [address] [place] [address] Performed By: #### 5 7021-8 ####[facility] LABORATORYCLIA [id number] [address] MCV (RBC) [Entitic vol] 91.6 fL Normal 80.0-100.0 [facility] Comment on above: Order Comment: Speci men Type: BLOOD SPECIMENOrdering Facility: [facility] Address: [address] [place] [address] Performed By: #### 5 7021-8 ####[facility] LABORATORYCLIA [id number] [address] [place] Monocytes (Bld) [#/Vol] 0.68 10*3/uL Normal <0.87 [facility] Comment on above: Order Comment: Speci men Type: BLOOD SPECIMENOrdering Facility: [facility] Address: [address] [place] [address] Performed By: #### 5 7021-8 ####[facility] LABORATORYCLIA [id number] [address] STATES [facility] Monocytes/100 WBC (Bld) 6.2 % Normal [facility] Comment on above: Order Comment: Speci men Type: BLOOD SPECIMENOrdering Facility: [facility] Address: [address] [place] [address] Performed By: #### 5 7021-8 ####[facility] LABORATORYCLIA [id number] [address] [place] Neutrophils (Bld) [#/Vol] 7.82 10*3/uL High 1.45-7.50 [facility] Comment on above: Order Comment: Speci men Type: BLOOD SPECIMENOrdering Facility: [facility] Address: [address] [place] [address] Performed By: #### 5 7021-8 ####[facility] LABORATORYCLIA [id number] [place] [address] [place] Neutrophils/100 WBC (Bld) 70.9 % Normal [facility] Comment on above: Order Comment: Speci men Type: BLOOD SPECIMENOrdering Facility: [facility] Address: [address] [place] [address] Performed By: #### 5 7021-8 ####[facility] LABORATORYCLIA [id number] [address] [place] Nucleated RBC (Bld) [#/Vol] 10*3/uL Normal <0.01 [facility] Comment on above: Order Comment: Speci men Type: BLOOD SPECIMENOrdering Facility: [facility] Address: [address] [place] [address] Performed By: #### 5 7021-8 ####[facility] LABORATORYCLIA [id number] [address] Nucleated RBC/100 WBC (Bld) [Ratio] 0.0 /100 WBC Normal [facility] Comment on above: Order Comment: Speci men Type: BLOOD SPECIMENOrdering Facility: [facility] Address: [address] [place] [address] Performed By: #### 5 7021-8 ####[facility] LABORATORYCLIA [id number] [address] Platelet mean volume (Bld) [Entitic vol] 10.1 fL Normal 9.0-12.7 [facility] Comment on above: Order Comment: Speci men Type: BLOOD SPECIMENOrdering Facility: [facility] Address: [address] [place], [place] [address] Performed By: #### 5 7021-8 ####[facility] LABORATORYCLIA [id number] [address] [place] Platelets (Bld) [#/Vol] 160 10*3/uL Normal 150-400 [facility] Comment on above: Order Comment: Speci men Type: BLOOD SPECIMENOrdering Facility: [facility] Address: [address] [place], [place] [address] Performed By: #### 5 7021-8 ####[facility] LABORATORYCLIA [id number] [address] [place] RBC (Bld) [#/Vol] 3.20 10*6/uL Low 4.20-6.00 [facility] Comment on above: Order Comment: Speci men Type: BLOOD SPECIMENOrdering Facility: [facility] Address: [address] [place] [address] Performed By: #### 5 7021-8 ####[facility] LABORATORYCLIA [id number] [address] STATES OF [facility] WBC (Bld) [#/Vol] 11.03 10*3/uL High 3.70-11.00 [facility] Comment on above: Order Comment: Speci men Type: BLOOD SPECIMENOrdering Facility: [facility] Address: [address] [place] [address] Performed By: #### 5 7021-8 ####[facility] LABORATORYCLIA [id number] [address] CONSULT PROGon 08-09-2021 CONSULT PROG Normal [facility] CT BRAIN WO IVCONon 08-10-19 CT BRAIN WO IVCON Normal [facility] CT BRAIN WO IVCON Normal [facility] Magnesium SerPl-mCncon 08-09 Magnesium [Mass/Vol] 2.0 mg/dL Normal 1.7-2.3 [facility] Comment on above: Order Comment: Speci men Type: BLOOD SPECIMENOrdering Facility: [facility] Address: [address] [place] [address] Performed By: #### 2 4321-2, 37024-7, 2777-1 ####[facility] LABORATORYCLIA [id number] [address] NURSING PROGon 08-09-2021 NURSING PROG Normal [facility] OPERATIVE NOon 08-09-2021 OPERATIVE NO Normal [facility] PT panel Coag (PPP)on 2021 INR Coag (PPP) [Relative time] 1.1 {INR} Normal 0.9-1.3 [facility] Comment on above: Order Comment: Shira feldman Type: BLOOD SPECIMENOrdering Facility: [facility] Address: [address] [place], [place] [address] Result Comment: Yris min K Antagonist (VKA) [...] al. Chest 2012, 141:7S-47SNishimpatricia RA, et al. [facility] 2017, 70: 252-289 Performed By: #### 3 4528-0, 36493-5 ####[employer] [facility] LABORATORYCLIA [id number] [place] [address] [place] PT Coag (PPP) [Time] 11.7 s Normal 9.7-13.0 [facility] Comment on above: Order Comment: Shira feldman Type: BLOOD SPECIMENOrdering Facility: [facility] Address: [address] [place] [address] Performed By: #### 3 4528-0, 88966-2 ####[employer] [facility] LABORATORYCLIA [id number] [place] [address] [place] Phosphate SerPl-mCncon 08-09 Phosphate [Mass/Vol] 4.0 mg/dL Normal 2.7-4.8 [facility] Comment on above: Order Comment: Shira feldman Type: BLOOD SPECIMENOrdering Facility: [facility] Address: [address] [place] [address] Performed By: #### 2 4321-2, 37276-0, 2777-1 ####[facility] LABORATORYCLIA [id number] [address] [place] THERAPY NTon 08-09-2021 THERAPY NT Normal [facility] THERAPY NT Normal [facility] TYPE AND SCREENon 08-09-2021 ABO O Normal [facility] Comment on above: Order Comment: Speci men Type: BLOOD SPECIMENOrdering Facility: [facility] Address: [address] [place] [address] Performed By: #### T SCR ####[facility] BLOOD BANKCLIA [id number] [address] HISTORICAL AB SCR STATUS Negative [facility] Comment on above: Order Comment: Speci men Type: BLOOD SPECIMENOrdering Facility: [facility] Address: [address] [place] [address] Performed By: #### T SCR ####[facility] BLOOD BANKCLIA [id number] [address] [place] Rh Nom (Bld) Positive [facility] Comment on above: Order Comment: Speci men Type: BLOOD SPECIMENOrdering Facility: [facility] Address: [address] [place] [address] Performed By: #### T SCR ####[facility] BLOOD BANKCLIA [id number] [address] OF [facility] TYPE AND SCREEN EXPIRATION 08/12/2021 23:59 Normal [facility] Comment on above: Order Comment: Speci men Type: BLOOD SPECIMENOrdering Facility: [facility] Address: [address] [place] [address] Performed By: #### T SCR ####[facility] BLOOD BANKCLIA [id number] [address] [place] XR ABD 2V [...] Comment: Speci men Type: BLOOD SPECIMENOrdering Facility: [facility] Address: [address] [place] [address] Performed By: #### 3 4528-0, 35888-4 ####[facility] LABORATORYCLIA [id number] [place] [address] [place] CASE MANAGEMon 08-08-2021 CASE MANAGEM Normal [facility] CBC W Auto Differential pane l (Bld)on 08-08-2021 Basophils (Bld) [#/Vol] 0.05 10*3/uL Normal <0.11 [facility] Comment on above: Order Comment: Speci men Type: BLOOD SPECIMENOrdering Facility: [facility] Address: [address] [place] [address] Performed By: #### 5 7021-8 ####[facility] LABORATORYCLIA [id number] [address] [place] Basophils/100 WBC (Bld) 0.5 % Normal [facility] Comment on above: Order Comment: Speci men Type: BLOOD SPECIMENOrdering Facility: [facility] Address: [address] [place] [address] Performed By: #### 5 7021-8 ####[facility] LABORATORYCLIA [id number] [place] [address] [place] Differential cell count method Nom (Bld) Auto Normal [facility] Comment on above: Order Comment: Speci men Type: BLOOD SPECIMENOrdering Facility: [facility] Address: [address] [place] [address] Performed By: #### 5 7021-8 ####[facility] LABORATORYCLIA [id number] [address] Eosinophils (Bld) [#/Vol] 0.17 10*3/uL Normal <0.46 [facility] Comment on above: Order Comment: Speci men Type: BLOOD SPECIMENOrdering Facility: [facility] Address: [address] [place] [address] Performed By: #### 5 7021-8 ####[facility] LABORATORYCLIA [id number] [address] Eosinophils/100 WBC (Bld) 1.6 % Normal [facility] Comment on above: Order Comment: Speci men Type: BLOOD SPECIMENOrdering Facility: [facility] Address: [address] [place] [address] Performed By: #### 5 7021-8 ####[facility] LABORATORYCLIA [id number] [address] Erythrocyte distribution width (RBC) [Ratio] 17.8 % High 11.5-15.0 [facility] Comment on above: Order Comment: Speci men Type: BLOOD SPECIMENOrdering Facility: [facility] Address: [address] [place] [address] Performed By: #### 5 7021-8 ####[facility] LABORATORYCLIA [id number] [address] Hematocrit (Bld) [Volume fraction] 29.6 % Low 39.0-51.0 [facility] Comment on above: Order Comment: Speci men Type: BLOOD SPECIMENOrdering Facility: [facility] Address: [address] [place] [address] Performed By: #### 5 7021-8 ####[facility] LABORATORYCLIA [id number] [address] [place] Hemoglobin (Bld) [Mass/Vol] 9.0 g/dL Low 13.0-17.0 [facility] Comment on above: Order Comment: Speci men Type: BLOOD SPECIMENOrdering Facility: [facility] Address: [address] [place] [address] Performed By: #### 5 7021-8 ####[facility]ORATORYCLIA [id number] [address] IMMATURE GRAN % 0.5 % Normal [facility] Comment on above: Order Comment: Speci men Type: BLOOD SPECIMENOrdering Facility: [facility] Address: [address] [place] [address] Performed By: #### 5 7021-8 ####[facility] LABORATORYCLIA [id number] [address] IMMATURE GRAN ABS 0.05 k/uL Normal <0.10 [facility] Comment on above: Order Comment: Speci men Type: BLOOD SPECIMENOrdering Facility: [facility] Address: [address] [place] [address] Performed By: #### 5 7021-8 ####[facility] LABORATORYCLIA [id number] [address] Lymphocytes (Bld) [#/Vol] 1.93 10*3/uL Normal 1.00-4.00 [facility] Comment on above: Order Comment: Speci men Type: BLOOD SPECIMENOrdering Facility: [facility] Address: [address] [place] [address] Performed By: #### 5 7021-8 ####[facility] LABORATORYCLIA [id number] [address] Lymphocytes/100 WBC (Bld) 18.2 % Normal [facility] Comment on above: Order Comment: Speci men Type: BLOOD SPECIMENOrdering Facility: [facility] Address: [address] [place] [address] Performed By: #### 5 7021-8 ####[facility]ORATORYCLIA [id number] [address] MCH (RBC) [Entitic mass] 28.1 pg Normal 26.0-34.0 [facility] Comment on above: Order Comment: Speci men Type: BLOOD SPECIMENOrdering Facility: [facility] Address: [address] [place] [address] Performed By: #### 5 7021-8 ####[facility] LABORATORYCLIA [id number] [address] MCHC (RBC) [Mass/Vol] 30.4 g/dL Low 30.5-36.0 [facility] Comment on above: Order Comment: Speci men Type: BLOOD SPECIMENOrdering Facility: [facility] Address: [address] [place] [address] Performed By: #### 5 7021-8 ####[facility] LABORATORYCLIA [id number] [address] MCV (RBC) [Entitic vol] 92.5 fL Normal 80.0-100.0 [facility] Comment on above: Order Comment: Speci men Type: BLOOD SPECIMENOrdering Facility: [facility] Address: [address] [place] [address] Performed By: #### 5 7021-8 ####[facility] LABORATORYCLIA [id number] [address] Monocytes (Bld) [#/Vol] 0.75 10*3/uL Normal <0.87 [facility] Comment on above: Order Comment: Speci men Type: BLOOD SPECIMENOrdering Facility: [facility] Address: [address] [place] [address] Performed By: #### 5 7021-8 ####[facility] LABORATORYCLIA [id number] [address] Monocytes/100 WBC (Bld) 7.1 % Normal [facility] Comment on above: Order Comment: Speci men Type: BLOOD SPECIMENOrdering Facility: [facility] Address: [address] [place] [address] Performed By: #### 5 7021-8 ####[facility]ORATORYCLIA [id number] [address] [place] Neutrophils (Bld) [#/Vol] 7.65 10*3/uL High 1.45-7.50 [facility] Comment on above: Order Comment: Speci men Type: BLOOD SPECIMENOrdering Facility: [facility] Address: [address] [place] [address] Performed By: #### 5 7021-8 ####[facility] LABORATORYCLIA [id number] [address] [place] Neutrophils/100 WBC (Bld) 72.1 % Normal [facility] Comment on above: Order Comment: Speci men Type: BLOOD SPECIMENOrdering Facility: [facility] Address: [address] [place] [address] Performed By: #### 5 7021-8 ####[facility]ORATORYCLIA [id number] [address] Nucleated RBC (Bld) [#/Vol] 10*3/uL Normal <0.01 [facility] Comment on above: Order Comment: Speci men Type: BLOOD SPECIMENOrdering Facility: [facility] Address: [address] [place] [address] Performed By: #### 5 7021-8 ####[facility]ORATORYCLIA [id number] [address] Nucleated RBC/100 WBC (Bld) [Ratio] 0.0 /100 WBC Normal [facility] Comment on above: Order Comment: Speci men Type: BLOOD SPECIMENOrdering Facility: [facility] Address: [address] [place] [address] Performed By: #### 5 7021-8 ####[facility] LABORATORYCLIA [id number] [address] [place] Platelet mean volume (Bld) [Entitic vol] 9.8 fL Normal 9.0-12.7 [facility] Comment on above: Order Comment: Speci men Type: BLOOD SPECIMENOrdering Facility: [facility] Address: [address] [place] [address] Performed By: #### 5 7021-8 ####[facility]ORATORYCLIA [id number] [address] OF [facility] Platelets (Bld) [#/Vol] 175 10*3/uL Normal 150-400 [facility] Comment on above: Order Comment: Speci men Type: BLOOD SPECIMENOrdering Facility: [facility] Address: [address] [place] [address] Performed By: #### 5 7021-8 ####[facility]ORATORYCLIA [id number] [address] OF [facility] RBC (Bld) [#/Vol] 3.20 10*6/uL Low 4.20-6.00 [facility] Comment on above: Order Comment: Speci men Type: BLOOD SPECIMENOrdering Facility: [facility] Address: [address] [place] [address] Performed By: #### 5 7021-8 ####[facility]ORATORYCLIA [id number] [address] OF [facility] WBC (Bld) [#/Vol] 10.60 10*3/uL Normal 3.70-11.00 [facility] Comment on above: Order Comment: Speci men Type: BLOOD SPECIMENOrdering Facility: [facility] Address: [address] [place] [address] Performed By: #### 5 7021-8 ####[facility]ORATORYCLIA [id number] [address] [place] BRAIN WO IVCONon 08-09-19 CT BRAIN WO IVCON Normal [facility] NURSING PROGon 08-08-2021 NURSING PROG Normal [facility] Prealbumin [Mass/Vol]on Prealbumin Nephelometry [Mass/Vol] 29 mg/dL Normal 17-36 [facility] Comment on above: Order Comment: Speci men Type: BLOOD SPECIMENOrdering Facility: [facility] Address: [address] [place] [address] Performed By: #### 1 4338-8 ####[facility] LABORATORYCLIA [id number] [place] [address] [place] SARS-CoV-2 RNA Resp Ql MEGAN+p robeon 08-08-2021 SARS-CoV-2 (COVID-19) RNA MEGAN+probe Ql (Resp) COVID 19 RESULT: SARS-CoV-2 (Agent of COVID-19) Not Detected by RT-PCR or equivalent method. This test has been authorized by FDA under an Emergency Use Authorization (EUA). Normal [facility] Comment on above: Performed By: #### 9 4500-6 ####[facility]ORATORYCLIA [id number] [place] [address] [place] ALLIED HEALTHon 08-07-2021 ALLIED HEALTH Normal [facility] Basic metabolic 2000 panelon 08-07-2021 Anion gap [Moles/Vol] 9 mmol/L Normal 9-18 [facility] Comment on above: Order Comment: Speci men Type: BLOOD SPECIMENOrdering Facility: [facility] Address: [address] [place], [place] [phone] Performed By: #### 2 4321-2, 2776-, , [facility] ####[facility]ORATORYCLIA [id number] [place] [address] [place] Calcium [Mass/Vol] 9.4 mg/dL Normal 8.5-10.2 [facility] Comment on above: Order Comment: Speci men Type: BLOOD SPECIMENOrdering Facility: [facility] Address: [address] [place], [place] [phone] Performed By: #### 2 4321-2, 2777-1, , HFP ####[facility]ORATORYCLIA [id number] [place] [address] [place] Chloride [Moles/Vol] 98 mmol/L Normal 97-105 [facility] Comment on above: Order Comment: Speci men Type: BLOOD SPECIMENOrdering Facility: [facility] Address: [address] [place], [place] [phone] Performed By: #### 2 4321-2, 2776-05, , [facility] ####[facility]ORATORYCLIA [id number] [address] CO2 [Moles/Vol] 29 mmol/L Normal 22-30 [facility] Comment on above: Order Comment: Speci men Type: BLOOD SPECIMENOrdering Facility: [facility] Address: [address] [place] [phone] Performed By: #### 2 4321-2, 2776-05, , [facility] ####[facility]ORATORYCLIA [id number] [address] Creatinine [Mass/Vol] 0.67 mg/dL Low 0.73-1.22 [facility] Comment on above: Order Comment: Speci men Type: BLOOD SPECIMENOrdering Facility: [facility] Address: [address] [place] [address] Performed By: #### 2 4321-2, 2776-05, , [facility] ####[facility]ORATORYCLIA [id number] [address] ESTIMATED GLOMERULAR FILTRATION RATE 101 mL/min/1.73m??? Normal >=60 [facility] Comment on above: Order Comment: Speci men Type: BLOOD SPECIMENOrdering Facility: [facility] Address: [address] [place] [address] Result Comment: Luzmaria mated Glomerular Filtration Rate [...] By: #### 2 4321-2, 2776-05, , HFP ####[facility]ORATORYCLIA [id number] [place] [address] [place] Glucose [Mass/Vol] 117 mg/dL High 74-99 [facility] Comment on above: Order Comment: Speci men Type: BLOOD SPECIMENOrdering Facility: [facility] Address: [address] [place], [place] [phone] Result Comment: The [place] [employer] (ADA) [...] Performed By: #### 2 4321-2, 2776-, , [facility] ####[facility]ORATORYCLIA [id number] [place] [address] [place] Potassium [Moles/Vol] 4.1 mmol/L Normal 3.7-5.1 [facility] Comment on above: Order Comment: Speci men Type: BLOOD SPECIMENOrdering Facility: [facility] Address: [address] [address] [place], [place] [phone] Performed By: #### 2 4321-2, 277-, , [facility] ####[facility] LABORATORYIA [id number] [place] [address] [place] Sodium [Moles/Vol] 136 mmol/L Normal 136-144 [facility] Comment on above: Order Comment: Speci men Type: BLOOD SPECIMENOrdering Facility: [facility] Address: [address] [place], [place] [phone] Performed By: #### 2 4321-2, 2776-05, , [facility] ####[facility]ORATORYCLIA [id number] [place] [address] [place] Urea nitrogen [Mass/Vol] 31 mg/dL High 9- [facility] Comment on above: Order Comment: Speci men Type: BLOOD SPECIMENOrdering Facility: [facility] Address: [address] [place] [address] Performed By: #### 2 4321-2, 2777-1, , [facility] ####[facility]ORATORYCLIA [id number] [place] [address] [place] CBC W Auto Differential pane l (Bld)on 08-07-2021 Basophils (Bld) [#/Vol] 0.03 10*3/uL Normal <0.11 [facility] Comment on above: Order Comment: Speci men Type: BLOOD SPECIMENOrdering Facility: [facility] Address: [address] [place] [address] Performed By: #### 5 7021-8 ####[facility]ORATORYCLIA [id number] [address] [place] Basophils/100 WBC (Bld) 0.3 % Normal [facility] Comment on above: Order Comment: Speci men Type: BLOOD SPECIMENOrdering Facility: [facility] Address: [address] [place] [address] Performed By: #### 5 7021-8 ####[facility]ORATORYCLIA [id number] [address] STATES [facility] Differential cell count method Nom (Bld) Auto Normal [facility] Comment on above: Order Comment: Speci men Type: BLOOD SPECIMENOrdering Facility: [facility] Address: [address] [place] [address] Performed By: #### 5 7021-8 ####[facility]ORATORYCLIA [id number] [place] [address] [place] Eosinophils (Bld) [#/Vol] 0.16 10*3/uL Normal <0.46 [facility] Comment on above: Order Comment: Speci men Type: BLOOD SPECIMENOrdering Facility: [facility] Address: [address] [place] [address] Performed By: #### 5 7021-8 ####[facility]ORATORYCLIA [id number] [address] [place] Eosinophils/100 WBC (Bld) 1.6 % Normal [facility] Comment on above: Order Comment: Speci men Type: BLOOD SPECIMENOrdering Facility: [facility] Address: [address] [place] [address] Performed By: #### 5 7021-8 ####[facility]ORATORYCLIA [id number] [address] [place] Erythrocyte distribution width (RBC) [Ratio] 18.1 % High 11.5-15.0 [facility] Comment on above: Order Comment: Speci men Type: BLOOD SPECIMENOrdering Facility: [facility] Address: [address] [place] [address] Performed By: #### 5 7021-8 ####[facility]ORATORYCLIA [id number] [address] [place] Hematocrit (Bld) [Volume fraction] 30.6 % Low 39.0-51.0 [facility] Comment on above: Order Comment: Speci men Type: BLOOD SPECIMENOrdering Facility: [facility] Address: [address] [place] [address] Performed By: #### 5 7021-8 ####[facility]ORATORYCLIA [id number] [address] [place] Hemoglobin (Bld) [Mass/Vol] 9.4 g/dL Low 13.0-17.0 [facility] Comment on above: Order Comment: Speci men Type: BLOOD SPECIMENOrdering Facility: [facility] Address: [address] [place] [address] Performed By: #### 5 7021-8 ####[facility]ORATORYCLIA [id number] [address] IMMATURE GRAN % 0.4 % Normal [facility] Comment on above: Order Comment: Speci men Type: BLOOD SPECIMENOrdering Facility: [facility] Address: [address] [place] [address] Performed By: #### 5 7021-8 ####[facility]ORATORYCLIA [id number] [address] IMMATURE GRAN ABS 0.04 k/uL Normal <0.10 [facility] Comment on above: Order Comment: Speci men Type: BLOOD SPECIMENOrdering Facility: [facility] Address: [address] [place] [address] Performed By: #### 5 7021-8 ####[facility]ORATORYCLIA [id number] [address] Lymphocytes (Bld) [#/Vol] 2.05 10*3/uL Normal 1.00-4.00 [facility] Comment on above: Order Comment: Speci men Type: BLOOD SPECIMENOrdering Facility: [facility] Address: [address] [place] [address] Performed By: #### 5 7021-8 ####[facility]ORATORYCLIA [id number] [address] Lymphocytes/100 WBC (Bld) 20.2 % Normal [facility] Comment on above: Order Comment: Speci men Type: BLOOD SPECIMENOrdering Facility: [facility] Address: [address] [place] [address] Performed By: #### 5 7021-8 ####[facility]ORATORYCLIA [id number] [address] [place] MCH (RBC) [Entitic mass] 28.8 pg Normal 26.0-34.0 [facility] Comment on above: Order Comment: Speci men Type: BLOOD SPECIMENOrdering Facility: [facility] Address: [address] [place] [address] Performed By: #### 5 7021-8 ####[facility]ATORYCLIA [id number] [address] [place] MCHC (RBC) [Mass/Vol] 30.7 g/dL Normal 30.5-36.0 [facility] Comment on above: Order Comment: Speci men Type: BLOOD SPECIMENOrdering Facility: [facility] Address: [address] [place] [address] Performed By: #### 5 7021-8 ####[facility]ATORYCLIA [id number] [address] MCV (RBC) [Entitic vol] 93.9 fL Normal 80.0-100.0 [facility] Comment on above: Order Comment: Speci men Type: BLOOD SPECIMENOrdering Facility: [facility] Address: [address] [place] [address] Performed By: #### 5 7021-8 ####[facility]ORATORYCLIA [id number] [address] [place] Monocytes (Bld) [#/Vol] 0.64 10*3/uL Normal <0.87 [facility] Comment on above: Order Comment: Speci men Type: BLOOD SPECIMENOrdering Facility: [facility] Address: [address] [place] [address] Performed By: #### 5 7021-8 ####[facility]ORATORYCLIA [id number] [address] Monocytes/100 WBC (Bld) 6.3 % Normal [facility] Comment on above: Order Comment: Speci men Type: BLOOD SPECIMENOrdering Facility: [facility] Address: [address] [place] [address] Performed By: #### 5 7021-8 ####[facility]ORATORYCLIA [id number] [address] [place] Neutrophils (Bld) [#/Vol] 7.22 10*3/uL Normal 1.45-7.50 [facility] Comment on above: Order Comment: Speci men Type: BLOOD SPECIMENOrdering Facility: [facility] Address: [address] [place] [address] Performed By: #### 5 7021-8 ####[facility]ORATORYCLIA [id number] [address] Neutrophils/100 WBC (Bld) 71.2 % Normal [facility] Comment on above: Order Comment: Speci men Type: BLOOD SPECIMENOrdering Facility: [facility] Address: [address] [place] [address] Performed By: #### 5 7021-8 ####[facility]ATORYCLIA [id number] [address] Nucleated RBC (Bld) [#/Vol] 10*3/uL Normal <0.01 [facility] Comment on above: Order Comment: Speci men Type: BLOOD SPECIMENOrdering Facility: [facility] Address: [address] [place] [address] Performed By: #### 5 7021-8 ####[facility]ATORYCLIA [id number] [address] Nucleated RBC/100 WBC (Bld) [Ratio] 0.0 /100 WBC Normal [facility] Comment on above: Order Comment: Speci men Type: BLOOD SPECIMENOrdering Facility: [facility] Address: [address] [place] [address] Performed By: #### 5 7021-8 ####[facility]ORATORYCLIA [id number] [address] [place] Platelet mean volume (Bld) [Entitic vol] 9.9 fL Normal 9.0-12.7 [facility] Comment on above: Order Comment: Speci men Type: BLOOD SPECIMENOrdering Facility: [facility] Address: [address] [place] [address] Performed By: #### 5 7021-8 ####[facility]ORATORYCLIA [id number] [address] [place] Platelets (Bld) [#/Vol] 227 10*3/uL Normal 150-400 [facility] Comment on above: Order Comment: Speci men Type: BLOOD SPECIMENOrdering Facility: [facility] Address: [address] [place] [address] Performed By: #### 5 7021-8 ####[facility]ORATORYCLIA [id number] [address] STATES OF [facility] RBC (Bld) [#/Vol] 3.26 10*6/uL Low 4.20-6.00 [facility] Comment on above: Order Comment: Speci men Type: BLOOD SPECIMENOrdering Facility: [facility] Address: [address] [place] [address] Performed By: #### 5 7021-8 ####[facility]ORATORYCLIA [id number] [address] OF [facility] WBC (Bld) [#/Vol] 10.14 10*3/uL Normal 3.70-11.00 [facility] Comment on above: Order Comment: Speci men Type: BLOOD SPECIMENOrdering Facility: [facility] Address: [address] [place] [address] Performed By: #### 5 7021-8 ####[facility]ORATORYCLIA [id number] [address] BRAIN WO IVCONon 08-08-19 CT BRAIN WO IVCON Normal [facility] HEPATIC FUNCTION PNLon 08-07 Albumin [Mass/Vol] 3.6 g/dL Low 3.9-4.9 [facility] Comment on above: Order Comment: Speci men Type: BLOOD SPECIMENOrdering Facility: [facility] Address: [address] [place] [address] Performed By: #### 2 4321-2, 2777-1, 77941-3, HFP ####[facility]ORATORYCLIA [id number] [address] STATES OF [facility] ALP [Catalytic activity/Vol] 124 U/L High 38-113 [facility] Comment on above: Order Comment: Speci men Type: BLOOD SPECIMENOrdering Facility: [facility] Address: [address] [place], [place] [phone] Performed By: #### 2 4321-2, 2776-05, , HFP ####[facility] LABORATORYCLIA [id number] [place] [address] [place] ALT With P-5'-P [Catalytic activity/Vol] 29 U/L Normal 10-54 [facility] Comment on above: Order Comment: Speci men Type: BLOOD SPECIMENOrdering Facility: [facility] Address: [address] [place] [address] Performed By: #### 2 4321-2, 2776-05, , HFP ####[facility]ORATORYCLIA [id number] [address] STATES [place] [facility] AST With P-5'-P [Catalytic activity/Vol] 18 U/L Normal 14-40 [facility] Comment on above: Order Comment: Speci men Type: BLOOD SPECIMENOrdering Facility: [facility] Address: [address] [place] [address] Performed By: #### 2 4321-2, 2776-05, , HFP ####[facility]ORATORYCLIA [id number] [address] [place] Bilirubin [Mass/Vol] 0.3 mg/dL Normal 0.2-1.3 [facility] Comment on above: Order Comment: Speci men Type: BLOOD SPECIMENOrdering Facility: [facility] Address: [address] [place], [place] [phone] Performed By: #### 2 4321-2, 2776-05, , HFP ####[facility]ORATORYCLIA [id number] [address] Bilirubin.conjugated [Mass/Vol] mg/dL Normal <0.2 [facility] Comment on above: Order Comment: Speci men Type: BLOOD SPECIMENOrdering Facility: [facility] Address: [address] [place], [place] [phone] Performed By: #### 2 4321-2, 2776-05, , HFP ####[facility]ORATORYCLIA [id number] [place] [address] [place] Protein [Mass/Vol] 6.4 g/dL Normal 6.3-8.0 [facility] Comment on above: Order Comment: Speci men Type: BLOOD SPECIMENOrdering Facility: [facility] Address: [address] [place] [address] Performed By: #### 2 4321-2, 2776-05, , HFP ####[facility] LABORATORYCLIA [id number] [place] [address] [place] Magnesium SerPl-mCncon 08-07 Magnesium [Mass/Vol] 2.3 mg/dL Normal 1.7-2.3 [facility] Comment on above: Order Comment: Speci men Type: BLOOD SPECIMENOrdering Facility: [facility] Address: [address] [place], [place] [phone] Performed By: #### 2 4321-2, 2776-05, , HFP ####[facility]ORATORYCLIA [id number] [place] [address] [place] NURSING PROGon 08-07-2021 NURSING PROG Normal [facility] Phosphate SerPl-mCncon 08-07 Phosphate [Mass/Vol] 3.5 mg/dL Normal 2.7-4.8 [facility] Comment on above: Order Comment: Speci men Type: BLOOD SPECIMENOrdering Facility: [facility] Address: [address] [place], [place] [phone] Performed By: #### 2 4321-2, 2776-05, , HFP ####[facility] LABORATORYCLIA [id number] [place] [address] [place] ANES POSTPROC EVALon 022 ANES POSTPROC EVAL Normal [facility] Basic metabolic 2000 panelon 08-06-2021 Anion gap [Moles/Vol] 11 mmol/L Normal 9-18 [facility] Comment on above: Order Comment: Speci men Type: BLOOD SPECIMENOrdering Facility: [facility] Address: [address] [place] [address] Performed By: #### 2 4321-2, 2776-1, ####[facility] LABORATORYCLIA [id number] [place] [address] [place] Calcium [Mass/Vol] 8.2 mg/dL Low 8.5-10.2 [facility] Comment on above: Order Comment: Speci men Type: BLOOD SPECIMENOrdering Facility: [facility] Address: [address] [place] [address] Performed By: #### 2 4321-2, 2776-05, ####[facility] LABORATORYCLIA [id number] [place] [address] [place] Chloride [Moles/Vol] 100 mmol/L Normal 97-105 [facility] Comment on above: Order Comment: Speci men Type: BLOOD SPECIMENOrdering Facility: [facility] Address: [address] [place] [address] Performed By: #### 2 4321-2, 2776-05, ####[facility] LABORATORYCLIA [id number] [place] [address] [place] CO2 [Moles/Vol] 23 mmol/L Normal 22-30 [facility] Comment on above: Order Comment: Speci men Type: BLOOD SPECIMENOrdering Facility: [facility] Address: [address] [place] [address] Performed By: #### 2 4321-2, 2776-05, ####[facility] LABORATORYCLIA [id number] [place] [address] [place] Creatinine [Mass/Vol] 0.55 mg/dL Low 0.73-1.22 [facility] Comment on above: Order Comment: Speci men Type: BLOOD SPECIMENOrdering Facility: [facility] Address: [address] [place], [place] [id number] Performed By: #### 2 4321-2, 2777-1, ####[facility]UNSTERCLIA [id number] [place] [id number] [place] ESTIMATED GLOMERULAR FILTRATION RATE 107 mL/min/1.73m??? Normal >=60 [facility] Comment on above: Order Comment: Shira francia Type: BLOOD SPECIMENOrdering Facility: [facility] Address: [address] [place], [place] [address] Result Comment: Luzmaria mated Glomerular Filtration Rate [...] GFR. Performed By: #### 2 4321-2, 2777-1, ####[facility] LABORATORYIA [id number] [place] [address] [place] Glucose [Mass/Vol] 275 mg/dL High 74-99 [facility] Comment on above: Order Comment: Shira feldman Type: BLOOD SPECIMENOrdering Facility: [facility] Address: [address] [place], [place] [id number] Result Comment: The [place] [employer] (ADA) [...] 2016.39(Suppl 1). Performed By: #### 2 4321-2, 277-, ####[facility]ORATORYCLIA [id number] [place] [address] [place] Potassium [Moles/Vol] 3.6 mmol/L Low 3.7-5.1 [facility] Comment on above: Order Comment: Speci men Type: BLOOD SPECIMENOrdering Facility: [facility] Address: [address] [place] [address] Performed By: #### 2 4321-2, 2776-05, ####[facility] LABORATORYCLIA [id number] [address] STATES OF [facility] Sodium [Moles/Vol] 134 mmol/L Low 136-144 [facility] Comment on above: Order Comment: Speci men Type: BLOOD SPECIMENOrdering Facility: [facility] Address: [address] [place] [address] Performed By: #### 2 4321-2, 2776-05, ####[facility]ORATORYCLIA [id number] [address] STATES OF [facility] Urea nitrogen [Mass/Vol] 29 mg/dL High 9-24 [facility] Comment on above: Order Comment: Speci men Type: BLOOD SPECIMENOrdering Facility: [facility] Address: [address] [place] [address] Performed By: #### 2 4321-2, 2776-05, ####[facility]ORATORYCLIA [id number] [address] [place] CBC W Auto Differential pane l (Bld)on 08-06-2021 Basophils (Bld) [#/Vol] 0.03 10*3/uL Normal <0.11 [facility] Comment on above: Order Comment: Speci men Type: BLOOD SPECIMENOrdering Facility: [facility] Address: [address] [place] [address] Performed By: #### 5 7021-8 ####[facility]ATORYCLIA [id number] [address] Basophils/100 WBC (Bld) 0.3 % Normal [facility] Comment on above: Order Comment: Speci men Type: BLOOD SPECIMENOrdering Facility: [facility] Address: [address] [place] [address] Performed By: #### 5 7021-8 ####[facility] LABORATORYCLIA [id number] [address] [place] Differential cell count method Nom (Bld) Auto Normal [facility] Comment on above: Order Comment: Speci men Type: BLOOD SPECIMENOrdering Facility: [facility] Address: [address] [place] [address] Performed By: #### 5 7021-8 ####[facility]ORATORYCLIA [id number] [address] [place] Eosinophils (Bld) [#/Vol] 0.18 10*3/uL Normal <0.46 [facility] Comment on above: Order Comment: Speci men Type: BLOOD SPECIMENOrdering Facility: [facility] Address: [address] [place] [address] Performed By: #### 5 7021-8 ####[facility]ORATORYCLIA [id number] [address] Eosinophils/100 WBC (Bld) 1.6 % Normal [facility] Comment on above: Order Comment: Speci men Type: BLOOD SPECIMENOrdering Facility: [facility] Address: [address] [place] [address] Performed By: #### 5 7021-8 ####[facility]ORATORYCLIA [id number] [address] [place] Erythrocyte distribution width (RBC) [Ratio] 17.9 % High 11.5-15.0 [facility] Comment on above: Order Comment: Speci men Type: BLOOD SPECIMENOrdering Facility: [facility] Address: [address] [place] [address] Performed By: #### 5 7021-8 ####[facility]ORATORYCLIA [id number] [address] Hematocrit (Bld) [Volume fraction] 27.6 % Low 39.0-51.0 [facility] Comment on above: Order Comment: Speci men Type: BLOOD SPECIMENOrdering Facility: [facility] Address: [address] [place] [address] Performed By: #### 5 7021-8 ####[facility]ORATORYCLIA [id number] [address] Hemoglobin (Bld) [Mass/Vol] 8.5 g/dL Low 13.0-17.0 [facility] Comment on above: Order Comment: Speci men Type: BLOOD SPECIMENOrdering Facility: [facility] Address: [address] [place] [address] Performed By: #### 5 7021-8 ####[facility]ORATORYCLIA [id number] [address] IMMATURE GRAN % 0.6 % Normal [facility] Comment on above: Order Comment: Speci men Type: BLOOD SPECIMENOrdering Facility: [facility] Address: [address] [place] [address] Performed By: #### 5 7021-8 ####[facility]ORATORYCLIA [id number] [address] IMMATURE GRAN ABS 0.07 k/uL Normal <0.10 [facility] Comment on above: Order Comment: Speci men Type: BLOOD SPECIMENOrdering Facility: [facility] Address: [address] [place] [address] Performed By: #### 5 7021-8 ####[facility]ORATORYCLIA [id number] [address] Lymphocytes (Bld) [#/Vol] 1.81 10*3/uL Normal 1.00-4.00 [facility] Comment on above: Order Comment: Speci men Type: BLOOD SPECIMENOrdering Facility: [facility] Address: [address] [place] [address] Performed By: #### 5 7021-8 ####[facility]ORATORYCLIA [id number] [address] Lymphocytes/100 WBC (Bld) 15.7 % Normal [facility] Comment on above: Order Comment: Speci men Type: BLOOD SPECIMENOrdering Facility: [facility] Address: [address] [place] [address] Performed By: #### 5 7021-8 ####[facility]ORATORYCLIA [id number] [address] MCH (RBC) [Entitic mass] 28.6 pg Normal 26.0-34.0 [facility] Comment on above: Order Comment: Speci men Type: BLOOD SPECIMENOrdering Facility: [facility] Address: [address] [place] [address] Performed By: #### 5 7021-8 ####[facility]ORATORYCLIA [id number] [address] MCHC (RBC) [Mass/Vol] 30.8 g/dL Normal 30.5-36.0 [facility] Comment on above: Order Comment: Speci men Type: BLOOD SPECIMENOrdering Facility: [facility] Address: [address] [place] [address] Performed By: #### 5 7021-8 ####[facility]ORATORYCLIA [id number] [address] STATES [facility] MCV (RBC) [Entitic vol] 92.9 fL Normal 80.0-100.0 [facility] Comment on above: Order Comment: Speci men Type: BLOOD SPECIMENOrdering Facility: [facility] Address: [address] [place] [address] Performed By: #### 5 7021-8 ####[facility]ORATORYCLIA [id number] [address] Monocytes (Bld) [#/Vol] 0.63 10*3/uL Normal <0.87 [facility] Comment on above: Order Comment: Speci men Type: BLOOD SPECIMENOrdering Facility: [facility] Address: [address] [place] [address] Performed By: #### 5 7021-8 ####[facility]ORATORYCLIA [id number] [place] [address] [place] Monocytes/100 WBC (Bld) 5.5 % Normal [facility] Comment on above: Order Comment: Speci men Type: BLOOD SPECIMENOrdering Facility: [facility] Address: [address] [place] [address] Performed By: #### 5 7021-8 ####[facility]ORATORYCLIA [id number] [place] [address] [place] Neutrophils (Bld) [#/Vol] 8.78 10*3/uL High 1.45-7.50 [facility] Comment on above: Order Comment: Speci men Type: BLOOD SPECIMENOrdering Facility: [facility] Address: [address] [place] [address] Performed By: #### 5 7021-8 ####[facility]ORATORYCLIA [id number] [address] [place] Neutrophils/100 WBC (Bld) 76.3 % Normal [facility] Comment on above: Order Comment: Speci men Type: BLOOD SPECIMENOrdering Facility: [facility] Address: [address] [place] [address] Performed By: #### 5 7021-8 ####[facility]ORATORYCLIA [id number] [place] [address] [place] Nucleated RBC (Bld) [#/Vol] 10*3/uL Normal <0.01 [facility] Comment on above: Order Comment: Speci men Type: BLOOD SPECIMENOrdering Facility: [facility] Address: [address] [place] [address] Performed By: #### 5 7021-8 ####[facility]ORATORYCLIA [id number] [address] [place] Nucleated RBC/100 WBC (Bld) [Ratio] 0.0 /100 WBC Normal [facility] Comment on above: Order Comment: Speci men Type: BLOOD SPECIMENOrdering Facility: [facility] Address: [address] [place] [address] Performed By: #### 5 7021-8 ####[facility]ORATORYCLIA [id number] [address] OF [place] Platelet mean volume (Bld) [Entitic vol] 9.9 fL Normal 9.0-12.7 [facility] Comment on above: Order Comment: Speci men Type: BLOOD SPECIMENOrdering Facility: [facility] Address: [address] [place] [address] Performed By: #### 5 7021-8 ####[facility]ORATORYCLIA [id number] [address] [place] Platelets (Bld) [#/Vol] 230 10*3/uL Normal 150-400 [facility] Comment on above: Order Comment: Speci men Type: BLOOD SPECIMENOrdering Facility: [facility] Address: [address] [place] [address] Performed By: #### 5 7021-8 ####[facility]ORATORYCLIA [id number] [address] [place] RBC (Bld) [#/Vol] 2.97 10*6/uL Low 4.20-6.00 [facility] Comment on above: Order Comment: Speci men Type: BLOOD SPECIMENOrdering Facility: [facility] Address: [address] [place] [address] Performed By: #### 5 7021-8 ####[facility]ORATORYCLIA [id number] [address] [place] WBC (Bld) [#/Vol] 11.50 10*3/uL High 3.70-11.00 [facility] Comment on above: Order Comment: Speci men Type: BLOOD SPECIMENOrdering Facility: [facility] Address: [address] [place] [address] Performed By: #### 5 7021-8 ####[facility]ORATORYCLIA [id number] [address] [place] CONSULT PROGon 08-06-2021 CONSULT PROG Normal [facility] Magnesium SerPl-mCncon 08-06 Magnesium [Mass/Vol] 1.9 mg/dL Normal 1.7-2.3 [facility] Comment on above: Order Comment: Speci men Type: BLOOD SPECIMENOrdering Facility: [facility] Address: [address] [place] [address] Performed By: #### 2 4321-2, 2777, ####[facility]ORATORYCLIA [id number] [address] NURSING PROGon 08-06-2021 NURSING PROG Normal [facility] OPERATIVE NOon 08-06-2021 OPERATIVE NO Normal [facility] Phosphate SerPl-mCncon 08-06 Phosphate [Mass/Vol] 4.2 mg/dL Normal 2.7-4.8 [facility] Comment on above: Order Comment: Speci men Type: BLOOD SPECIMENOrdering Facility: [facility] Address: [address] [place] [address] Performed By: #### 2 4321-2, 2777, ####[facility]ORATORYCLIA [id number] [address] [place] ALLIED HEALTHon 08-05-2021 [...] on above: Performed By: #### 3 2355-0 ####[facility]ORATORYCLIA [id number] [address] [place] Bacteria Ur Culton 2 Bacteria identified Cx Nom (U) CULTURE, URINE: No growth (<1,000 CFU/ml) Normal [facility] Comment on above: Performed By: #### 6 30-4 ####[facility]ORATORYCLIA [id number] [address] [place] Basic metabolic 2000 panelon 08-05-2021 Anion gap [Moles/Vol] 7 mmol/L Low 9-18 [facility] Comment on above: Order Comment: Speci men Type: BLOOD SPECIMENOrdering Facility: [facility] Address: [address] [place] [address] Performed By: #### 2 4321-2 ####[facility]ORATORYCLIA [id number] [place] [address] [place] Calcium [Mass/Vol] 9.5 mg/dL Normal 8.5-10.2 [facility] Comment on above: Order Comment: Speci men Type: BLOOD SPECIMENOrdering Facility: [facility] Address: [address] [place] [address] Performed By: #### 2 4321-2 ####[facility]ORATORYCLIA [id number] [place] [address] [place] Chloride [Moles/Vol] 97 mmol/L Normal 97-105 [facility] Comment on above: Order Comment: Speci men Type: BLOOD SPECIMENOrdering Facility: [facility] Address: [address] [place] [address] Performed By: #### 2 4321-2 ####[facility]ORATORYCLIA [id number] [place] [address] [place] CO2 [Moles/Vol] 30 mmol/L Normal 22-30 [facility] Comment on above: Order Comment: Shira feldman Type: BLOOD SPECIMENOrdering Facility: [facility] Address: [address] [place] [address] Performed By: #### 2 4321-2 ####[facility]UNSTERCLIA [id number] [address] STATES [place] [facility] Creatinine [Mass/Vol] 0.61 mg/dL Low 0.73-1.22 [facility] Comment on above: Order Comment: Shira feldman Type: BLOOD SPECIMENOrdering Facility: [facility] Address: [address] [place] [address] Performed By: #### 2 4321-2 ####[facility]ITALIA [id number] [address] ESTIMATED GLOMERULAR FILTRATION RATE 104 mL/min/1.73m??? Normal >=60 [facility] Comment on above: Order Comment: Shira feldman Type: BLOOD SPECIMENOrdering Facility: [facility] Address: [address] [place] [address] Result Comment: Luzmaria mated Glomerular Filtration Rate [...] actual GFR. Performed By: #### 2 4321-2 ####[facility]ORATORYCLIA [id number] [address] OF [facility] Glucose [Mass/Vol] 124 mg/dL High 74-99 [facility] Comment on above: Order Comment: Shira feldman Type: BLOOD SPECIMENOrdering Facility: [facility] Address: [address] [place] [address] Result Comment: The [place] [employer] (ADA) [...] 2016.39(Suppl 1). Performed By: #### 2 4321-2 ####[facility]ORATORYCLIA [id number] [address] STATES [facility] Potassium [Moles/Vol] 4.9 mmol/L Normal 3.7-5.1 [facility] Comment on above: Order Comment: Shira feldman Type: BLOOD SPECIMENOrdering Facility: [facility] Address: [address] [place] [address] Performed By: #### 2 4321-2 ####[facility]ORATORYCLIA [id number] [address] Sodium [Moles/Vol] 134 mmol/L Low 136-144 [facility] Comment on above: Order Comment: Shira feldman Type: BLOOD SPECIMENOrdering Facility: [facility] Address: [address] [place] [address] Performed By: #### 2 4321-2 ####[facility]ATORYCLIA [id number] [address] Urea nitrogen [Mass/Vol] 40 mg/dL High 9-24 [facility] Comment on above: Order Comment: Speci men Type: BLOOD SPECIMENOrdering Facility: [facility] Address: [address] [place] [address] Performed By: #### 2 4321-2 ####[facility]ORATORYCLIA [id number] [address] CBC W Auto Differential pane l (Bld)on 08-05-2021 Basophils (Bld) [#/Vol] 0.04 10*3/uL Normal <0.11 [facility] Comment on above: Order Comment: Speci men Type: BLOOD SPECIMENOrdering Facility: [facility] Address: [address] [place] [address] Performed By: #### 5 7021-8 ####[facility]ATORYCLIA [id number] [address] [place] Basophils/100 WBC (Bld) 0.3 % Normal [facility] Comment on above: Order Comment: Speci men Type: BLOOD SPECIMENOrdering Facility: [facility] Address: [address] [place] [address] Performed By: #### 5 7021-8 ####[facility]ORATORYCLIA [id number] [address] Differential cell count method Nom (Bld) Auto Normal [facility] Comment on above: Order Comment: Speci men Type: BLOOD SPECIMENOrdering Facility: [facility] Address: [address] [place] [address] Performed By: #### 5 7021-8 ####[facility]ORATORYCLIA [id number] [address] [place] Eosinophils (Bld) [#/Vol] 0.42 10*3/uL Normal <0.46 [facility] Comment on above: Order Comment: Speci men Type: BLOOD SPECIMENOrdering Facility: [facility] Address: [address] [place] [address] Performed By: #### 5 7021-8 ####[facility]ATORYCLIA [id number] [address] [place] Eosinophils/100 WBC (Bld) 3.6 % Normal [facility] Comment on above: Order Comment: Speci men Type: BLOOD SPECIMENOrdering Facility: [facility] Address: [address] [place] [address] Performed By: #### 5 7021-8 ####[facility]ORATORYCLIA [id number] [address] [place] Erythrocyte distribution width (RBC) [Ratio] 17.9 % High 11.5-15.0 [facility] Comment on above: Order Comment: Speci men Type: BLOOD SPECIMENOrdering Facility: [facility] Address: [address] [place] [address] Performed By: #### 5 7021-8 ####[facility]ORATORYCLIA [id number] [address] OF [facility] Hematocrit (Bld) [Volume fraction] 30.8 % Low 39.0-51.0 [facility] Comment on above: Order Comment: Speci men Type: BLOOD SPECIMENOrdering Facility: [facility] Address: [address] [place] [address] Performed By: #### 5 7021-8 ####[facility]ORATORYCLIA [id number] [address] OF [facility] Hemoglobin (Bld) [Mass/Vol] 9.6 g/dL Low 13.0-17.0 [facility] Comment on above: Order Comment: Speci men Type: BLOOD SPECIMENOrdering Facility: [facility] Address: [address] [place] [address] Performed By: #### 5 7021-8 ####[facility]ORATORYCLIA [id number] [address] IMMATURE GRAN % 0.5 % Normal [facility] Comment on above: Order Comment: Speci men Type: BLOOD SPECIMENOrdering Facility: [facility] Address: [address] [place] [address] Performed By: #### 5 7021-8 ####[facility]ORATORYCLIA [id number] [address] IMMATURE GRAN ABS 0.06 k/uL Normal <0.10 [facility] Comment on above: Order Comment: Speci men Type: BLOOD SPECIMENOrdering Facility: [facility] Address: [address] [place] [address] Performed By: #### 5 7021-8 ####[facility]ORATORYCLIA [id number] [address] OF [facility] Lymphocytes (Bld) [#/Vol] 2.17 10*3/uL Normal 1.00-4.00 [facility] Comment on above: Order Comment: Speci men Type: BLOOD SPECIMENOrdering Facility: [facility] Address: [address] [place] [address] Performed By: #### 5 7021-8 ####[facility]ORATORYCLIA [id number] [address] OF [facility] Lymphocytes/100 WBC (Bld) 18.7 % Normal [facility] Comment on above: Order Comment: Speci men Type: BLOOD SPECIMENOrdering Facility: [facility] Address: [address] [place] [address] Performed By: #### 5 7021-8 ####[facility]ORATORYCLIA [id number] [address] [place] [facility] MCH (RBC) [Entitic mass] 28.9 pg Normal 26.0-34.0 [facility] Comment on above: Order Comment: Speci men Type: BLOOD SPECIMENOrdering Facility: [facility] Address: [address] [place] [address] Performed By: #### 5 7021-8 ####[facility]ORATORYCLIA [id number] [address] [place] MCHC (RBC) [Mass/Vol] 31.2 g/dL Normal 30.5-36.0 [facility] Comment on above: Order Comment: Speci men Type: BLOOD SPECIMENOrdering Facility: [facility] Address: [address] [place] [address] Performed By: #### 5 7021-8 ####[facility] LABORATORYCLIA [id number] [address] MCV (RBC) [Entitic vol] 92.8 fL Normal 80.0-100.0 [facility] Comment on above: Order Comment: Speci men Type: BLOOD SPECIMENOrdering Facility: [facility] Address: [address] [place] [id number] Performed By: #### 5 7021-8 ####[facility]ORATORYCLIA [id number] [address] [place] Monocytes (Bld) [#/Vol] 0.71 10*3/uL Normal <0.87 [facility] Comment on above: Order Comment: Speci men Type: BLOOD SPECIMENOrdering Facility: [facility] Address: [address] [place] [address] Performed By: #### 5 7021-8 ####[facility] LABORATORYCLIA [id number] [address] [place] Monocytes/100 WBC (Bld) 6.1 % Normal [facility] Comment on above: Order Comment: Speci men Type: BLOOD SPECIMENOrdering Facility: [facility] Address: [address] [place] [address] Performed By: #### 5 7021-8 ####[facility] LABORATORYCLIA [id number] [address] [place] Neutrophils (Bld) [#/Vol] 8.19 10*3/uL High 1.45-7.50 [facility] Comment on above: Order Comment: Speci men Type: BLOOD SPECIMENOrdering Facility: [facility] Address: [address] [place] [address] Performed By: #### 5 7021-8 ####[facility] LABORATORYCLIA [id number] [address] [place] Neutrophils/100 WBC (Bld) 70.8 % Normal [facility] Comment on above: Order Comment: Speci men Type: BLOOD SPECIMENOrdering Facility: [facility] Address: [address] [place] [address] Performed By: #### 5 7021-8 ####[facility] LABORATORYCLIA [id number] [place] [address] [place] Nucleated RBC (Bld) [#/Vol] 10*3/uL Normal <0.01 [facility] Comment on above: Order Comment: Speci men Type: BLOOD SPECIMENOrdering Facility: [facility] Address: [address] [place] [address] Performed By: #### 5 7021-8 ####[facility] LABORATORYCLIA [id number] [address] [place] Nucleated RBC/100 WBC (Bld) [Ratio] 0.0 /100 WBC Normal [facility] Comment on above: Order Comment: Speci men Type: BLOOD SPECIMENOrdering Facility: [facility] Address: [address] [place] [address] Performed By: #### 5 7021-8 ####[facility] LABORATORYCLIA [id number] [place] [address] [place] Platelet mean volume (Bld) [Entitic vol] 9.6 fL Normal 9.0-12.7 [facility] Comment on above: Order Comment: Speci men Type: BLOOD SPECIMENOrdering Facility: [facility] Address: [address] [place] [address] Performed By: #### 5 7021-8 ####[facility] LABORATORYCLIA [id number] [place] [address] [place] Platelets (Bld) [#/Vol] 339 10*3/uL Normal 150-400 [facility] Comment on above: Order Comment: Speci men Type: BLOOD SPECIMENOrdering Facility: [facility] Address: [address] [place], [place] [id number] Performed By: #### 5 7021-8 ####[facility] LABORATORYCLIA [id number] [place] [address] [place] RBC (Bld) [#/Vol] 3.32 10*6/uL Low 4.20-6.00 [facility] Comment on above: Order Comment: Speci men Type: BLOOD SPECIMENOrdering Facility: [facility] Address: [address] [place] [address] Performed By: #### 5 7021-8 ####[facility] LABORATORYCLIA [id number] [address] [place] WBC (Bld) [#/Vol] 11.59 10*3/uL High 3.70-11.00 [facility] Comment on above: Order Comment: Speci men Type: BLOOD SPECIMENOrdering Facility: [facility] Address: [address] [place] [address] Performed By: #### 5 7021-8 ####[facility] LABORATORYCLIA [id number] [address] [place] BRAIN WO IVCONon 08-06-19 CT BRAIN WO IVCON Normal [facility] Magnesium SerPl-mCncon 08-05 Magnesium [Mass/Vol] 2.2 mg/dL Normal 1.7-2.3 [facility] Comment on above: Order Comment: Speci men Type: BLOOD SPECIMENOrdering Facility: [facility] Address: [address] [place] [address] Performed By: #### 1 9123-9, 2777-1 ####[facility] LABORATORYCLIA [id number] [address] NURSING PROGon 08-05-2021 NURSING PROG Normal [facility] NURSING PROG Normal [facility] NUTRITIONon 08-05-2021 NUTRITION Normal [facility] OPERATIVE NOon 08-05-2021 OPERATIVE NO Normal [facility] Phosphate SerPl-mCncon 08-05 Phosphate [Mass/Vol] 4.6 mg/dL Normal 2.7-4.8 [facility] Comment on above: Order Comment: Speci men Type: BLOOD SPECIMENOrdering Facility: [facility] Address: [address] [place] [address] Performed By: #### 1 9123-9, 2777-1 ####[facility] LABORATORYCLIA [id number] [address] THERAPY NTon 08-05-2021 THERAPY NT Normal [facility] THERAPY NT Normal [facility] Urinalysis complete panel (U )on 08-05-2021 Bilirubin Ql (U) Negative Normal Negative [facility] Comment on above: Order Comment: Speci men Type: URINE SPECIMENOrdering Facility: [facility] Address: [address] [place] [address] Performed By: #### 2 4356-8 ####[facility] LABORATORYCLIA [id number] [address] Clarity (Unsp spec) Clear Normal Clear [facility] Comment on above: Order Comment: Speci men Type: URINE SPECIMENOrdering Facility: [facility] Address: [address] [place] [address] Performed By: #### 2 4356-8 ####[facility] LABORATORYCLIA [id number] [address] Color (U) Light Yellow Normal yellow [facility] Comment on above: Order Comment: Speci men Type: URINE SPECIMENOrdering Facility: [facility] Address: [address] [place] [address] Performed By: #### 2 4356-8 ####[facility] LABORATORYCLIA [id number] [address] Epithelial cells LM.HPF (Urine sed) [#/Area] Few Abnormal None Seen [facility] Comment on above: Order Comment: Speci men Type: URINE SPECIMENOrdering Facility: [facility] Address: [address] [place] [address] Performed By: #### 2 4356-8 ####[facility] LABORATORYCLIA [id number] [address] Glucose Test strip (U) [Mass/Vol] Negative Normal Negative [facility] Comment on above: Order Comment: Speci men Type: URINE SPECIMENOrdering Facility: [facility] Address: [address] [place] [address] Performed By: #### 2 4356-8 ####[facility] LABORATORYCLIA [id number] [address] Hemoglobin Ql (U) Negative Normal Negative [facility] Comment on above: Order Comment: Speci men Type: URINE SPECIMENOrdering Facility: [facility] Address: [address] [place] [address] Performed By: #### 2 4356-8 ####[facility] LABORATORYCLIA [id number] [address] [place] Hyaline casts (Urine sed) [#/Area] 1-3 /LPF Abnormal 0 /LPF [facility] Comment on above: Order Comment: Speci men Type: URINE SPECIMENOrdering Facility: [facility] Address: [address] [place] [address] Performed By: #### 2 4356-8 ####[facility] LABORATORYCLIA [id number] [address] Ketones Ql (U) Negative Normal Negative [facility] Comment on above: Order Comment: Speci men Type: URINE SPECIMENOrdering Facility: [facility] Address: [address] [place] [address] Performed By: #### 2 4356-8 ####[facility] LABORATORYCLIA [id number] [address] Leukocyte esterase Test strip Ql (U) Negative Normal Negative [facility] Comment on above: Order Comment: Speci men Type: URINE SPECIMENOrdering Facility: [facility] Address: [address] [place] [address] Performed By: #### 2 4356-8 ####[facility] LABORATORYCLIA [id number] [address] [place] Nitrite Ql (U) Negative Normal Negative [facility] Comment on above: Order Comment: Speci men Type: URINE SPECIMENOrdering Facility: [facility] Address: [address] [place] [address] Performed By: #### 2 4356-8 ####[facility] LABORATORYCLIA [id number] [address] [place] pH (U) 6.0 [pH] Normal 5.0-8.0 [facility] Comment on above: Order Comment: Speci men Type: URINE SPECIMENOrdering Facility: [facility] Address: [address] [place] [address] Performed By: #### 2 4356-8 ####[facility] LABORATORYCLIA [id number] [address] Protein (U) [Mass/Vol] Negative Normal Negative [facility] Comment on above: Order Comment: Speci men Type: URINE SPECIMENOrdering Facility: [facility] Address: [address] [place] [address] Performed By: #### 2 4356-8 ####[facility] MUNSTERCLIA [id number] [address] STATES [facility] RBC LM.HPF (Urine sed) [#/Area] 0-3 /HPF Normal 0-3 /HPF [facility] Comment on above: Order Comment: Speci men Type: URINE SPECIMENOrdering Facility: [facility] Address: [address] [place] [address] Performed By: #### 2 4356-8 ####[facility]ITAL[facility] [id number] [address] [place] Specific gravity (U) [Rel density] 1.015 Normal 1.005-1.030 [facility] Comment on above: Order Comment: Speci men Type: URINE SPECIMENOrdering Facility: [facility] Address: [address] [place] [address] Performed By: #### 2 4356-8 ####[facility] LABORATORYCLIA [id number] [address] Urobilinogen Ql (U) Normal Normal Negative [facility] Comment on above: Order Comment: Speci men Type: URINE SPECIMENOrdering Facility: [facility] Address: [address] [place] [address] Performed By: #### 2 4356-8 ####[facility] LABORATORYCLIA [id number] [address] WBC LM.HPF (Urine sed) [#/Area] 0-5 /HPF Normal 0-5 /HPF [facility] Comment on above: Order Comment: Speci men Type: URINE SPECIMENOrdering Facility: [facility] Address: [address] [place] [phone] Performed By: #### 2 4356-8 ####[facility] LABORATORYCLIA [id number] [address] XR ABDOMEN 1V SUPINEon 08-05 XR ABDOMEN 1V SUPINE Normal [facility] XR CHEST 1V FRONTALon 2021 XR [...] on above: Performed By: #### 6 00-7 ####[facility] LABORATORYCLIA [id number] [address] Bacteria identified Cx Nom (Bld) CULTURE, BLOOD: No growth 5 days Normal [facility] Comment on above: Performed By: #### 6 00-7 ####[facility] LABORATORYCLIA [id number] [address] [place] CBC W Auto Differential pane l (Bld)on 08-04-2021 Basophils (Bld) [#/Vol] 0.05 10*3/uL Normal <0.11 [facility] Comment on above: Order Comment: Speci men Type: BLOOD SPECIMENOrdering Facility: [facility] Address: [address] [place] [phone] Performed By: #### 5 7021-8 ####[facility] LABORATORYCLIA [id number] [address] [place] Basophils/100 WBC (Bld) 0.4 % Normal [facility] Comment on above: Order Comment: Speci men Type: BLOOD SPECIMENOrdering Facility: [facility] Address: [address] [place] [address] Performed By: #### 5 7021-8 ####[facility] LABORATORYCLIA [id number] [address] Differential cell count method Nom (Bld) Auto Normal [facility] Comment on above: Order Comment: Speci men Type: BLOOD SPECIMENOrdering Facility: [facility] Address: [address] [place] [address] Performed By: #### 5 7021-8 ####[facility] LABORATORYCLIA [id number] [address] [place] Eosinophils (Bld) [#/Vol] 0.21 10*3/uL Normal <0.46 [facility] Comment on above: Order Comment: Speci men Type: BLOOD SPECIMENOrdering Facility: [facility] Address: [address] [place] [address] Performed By: #### 5 7021-8 ####[facility] LABORATORYCLIA [id number] [address] [place] Eosinophils/100 WBC (Bld) 1.7 % Normal [facility] Comment on above: Order Comment: Speci men Type: BLOOD SPECIMENOrdering Facility: [facility] Address: [address] [place] [address] Performed By: #### 5 7021-8 ####[facility] LABORATORYCLIA [id number] [address] Erythrocyte distribution width (RBC) [Ratio] 18.1 % High 11.5-15.0 [facility] Comment on above: Order Comment: Speci men Type: BLOOD SPECIMENOrdering Facility: [facility] Address: [address] [place] [address] Performed By: #### 5 7021-8 ####[facility] LABORATORYCLIA [id number] [address] Hematocrit (Bld) [Volume fraction] 32.0 % Low 39.0-51.0 [facility] Comment on above: Order Comment: Speci men Type: BLOOD SPECIMENOrdering Facility: [facility] Address: [address] [place] [address] Performed By: #### 5 7021-8 ####[facility] LABORATORYCLIA [id number] [address] Hemoglobin (Bld) [Mass/Vol] 10.0 g/dL Low 13.0-17.0 [facility] Comment on above: Order Comment: Speci men Type: BLOOD SPECIMENOrdering Facility: [facility] Address: [address] [place] [address] Performed By: #### 5 7021-8 ####[facility] LABORATORYCLIA [id number] [address] IMMATURE GRAN % 0.6 % Normal [facility] Comment on above: Order Comment: Speci men Type: BLOOD SPECIMENOrdering Facility: [facility] Address: [address] [place] [address] Performed By: #### 5 7021-8 ####[facility] LABORATORYCLIA [id number] [address] IMMATURE GRAN ABS 0.08 k/uL Normal <0.10 [facility] Comment on above: Order Comment: Speci men Type: BLOOD SPECIMENOrdering Facility: [facility] Address: [address] [place] [address] Performed By: #### 5 7021-8 ####[facility] LABORATORYCLIA [id number] [address] Lymphocytes (Bld) [#/Vol] 2.55 10*3/uL Normal 1.00-4.00 [facility] Comment on above: Order Comment: Speci men Type: BLOOD SPECIMENOrdering Facility: [facility] Address: [address] [place] [address] Performed By: #### 5 7021-8 ####[facility] LABORATORYCLIA [id number] [address] Lymphocytes/100 WBC (Bld) 20.5 % Normal [facility] Comment on above: Order Comment: Speci men Type: BLOOD SPECIMENOrdering Facility: [facility] Address: [address] [place] [address] Performed By: #### 5 7021-8 ####[facility] LABORATORYCLIA [id number] [address] MCH (RBC) [Entitic mass] 28.9 pg Normal 26.0-34.0 [facility] Comment on above: Order Comment: Speci men Type: BLOOD SPECIMENOrdering Facility: [facility] Address: [address] [place] [address] Performed By: #### 5 7021-8 ####[facility] LABORATORYCLIA [id number] [address] STATES [facility] MCHC (RBC) [Mass/Vol] 31.3 g/dL Normal 30.5-36.0 [facility] Comment on above: Order Comment: Speci men Type: BLOOD SPECIMENOrdering Facility: [facility] Address: [address] [place] [address] Performed By: #### 5 7021-8 ####[facility] LABORATORYCLIA [id number] [address] STATES [facility] MCV (RBC) [Entitic vol] 92.5 fL Normal 80.0-100.0 [facility] Comment on above: Order Comment: Speci men Type: BLOOD SPECIMENOrdering Facility: [facility] Address: [address] [place] [address] Performed By: #### 5 7021-8 ####[facility] LABORATORYCLIA [id number] [place] [address] [place] Monocytes (Bld) [#/Vol] 0.85 10*3/uL Normal <0.87 [facility] Comment on above: Order Comment: Speci men Type: BLOOD SPECIMENOrdering Facility: [facility] Address: [address] [place] [address] Performed By: #### 5 7021-8 ####[facility] LABORATORYCLIA [id number] [address] [place] Monocytes/100 WBC (Bld) 6.8 % Normal [facility] Comment on above: Order Comment: Speci men Type: BLOOD SPECIMENOrdering Facility: [facility] Address: [address] [place] [address] Performed By: #### 5 7021-8 ####[facility] LABORATORYCLIA [id number] [address] [place] Neutrophils (Bld) [#/Vol] 8.68 10*3/uL High 1.45-7.50 [facility] Comment on above: Order Comment: Speci men Type: BLOOD SPECIMENOrdering Facility: [facility] Address: [address] [place] [address] Performed By: #### 5 7021-8 ####[facility] LABORATORYCLIA [id number] [address] [place] Neutrophils/100 WBC (Bld) 70.0 % Normal [facility] Comment on above: Order Comment: Speci men Type: BLOOD SPECIMENOrdering Facility: [facility] Address: [address] [place] [address] Performed By: #### 5 7021-8 ####[facility] LABORATORYCLIA [id number] [address] [place] Nucleated RBC (Bld) [#/Vol] 10*3/uL Normal <0.01 [facility] Comment on above: Order Comment: Speci men Type: BLOOD SPECIMENOrdering Facility: [facility] Address: [address] [place] [address] Performed By: #### 5 7021-8 ####[facility] LABORATORYCLIA [id number] [address] [place] Nucleated RBC/100 WBC (Bld) [Ratio] 0.0 /100 WBC Normal [facility] Comment on above: Order Comment: Speci men Type: BLOOD SPECIMENOrdering Facility: [facility] Address: [address] [place] [address] Performed By: #### 5 7021-8 ####[facility] LABORATORYCLIA [id number] [address] [place] Platelet mean volume (Bld) [Entitic vol] 10.0 fL Normal 9.0-12.7 [facility] Comment on above: Order Comment: Speci men Type: BLOOD SPECIMENOrdering Facility: [facility] Address: [address] [place] [address] Performed By: #### 5 7021-8 ####[facility] LABORATORYCLIA [id number] [address] Platelets (Bld) [#/Vol] 393 10*3/uL Normal 150-400 [facility] Comment on above: Order Comment: Speci men Type: BLOOD SPECIMENOrdering Facility: [facility] Address: [address] [place] [address] Performed By: #### 5 7021-8 ####[facility] LABORATORYCLIA [id number] [address] [place] RBC (Bld) [#/Vol] 3.46 10*6/uL Low 4.20-6.00 [facility] Comment on above: Order Comment: Speci men Type: BLOOD SPECIMENOrdering Facility: [facility] Address: [address] [place] [address] Performed By: #### 5 7021-8 ####[facility] LABORATORYCLIA [id number] [address] [place] WBC (Bld) [#/Vol] 12.42 10*3/uL High 3.70-11.00 [facility] Comment on above: Order Comment: Speci men Type: BLOOD SPECIMENOrdering Facility: [facility] Address: [address] [place] [address] Performed By: #### 5 7021-8 ####[facility] LABORATORYCLIA [id number] [address] [place] BRAIN WO IVCONon 08-05-19 CT BRAIN WO IVCON Normal [facility] Lactate (Bld) [Moles/Vol]on 08-04-2021 Lactate [Moles/Vol] 1.4 mmol/L Normal 0.5-2.2 [facility] Comment on above: Order Comment: Speci men Type: BLOOD SPECIMENOrdering Facility: [facility] Address: [address] [place] [address] Performed By: #### 3 2693-4 ####[facility]CLIA [id number] [address] PROCALCITONIN (LAB)on 2021 Procalcitonin [Mass/Vol] 0.08 ng/mL Normal <0.09 [facility] Comment on above: Order Comment: Speci men Type: BLOOD SPECIMENOrdering Facility: [facility] Address: [address] [place] [address] Result Comment: For a guided interpretation of test results, please visit the Change in Procalcitonin Calculator, [email or web address]. Performed By: #### P ROCAL ####[facility] LABORATORYCLIA [id number] [address] Prealbumin [Mass/Vol]on 07-07 Prealbumin Nephelometry [Mass/Vol] 35 mg/dL Normal 17-36 [facility] Comment on above: Order Comment: Speci men Type: BLOOD SPECIMENOrdering Facility: [facility] Address: [address] [place] [address] Performed By: #### 1 4338-8 ####[facility] LABORATORYCLIA [id number] [address] SARS-CoV-2 RNA Resp Ql MEGAN+p robeon 08-04-2021 SARS-CoV-2 (COVID-19) RNA MEGAN+probe Ql (Resp) COVID 19 RESULT: SARS-CoV-2 (Agent of COVID-19) Not Detected by RT-PCR or equivalent method. This test has been authorized by FDA under an Emergency Use Authorization (EUA). [facility] Comment on above: Performed By: #### 9 4500-6 ####[facility] LABORATORYCLIA [id number] [address] TYPE AND SCREENon 08-04-[address] [facility] Comment on above: Order Comment: Speci men Type: BLOOD SPECIMENOrdering Facility: [facility] Address: [address] [place] [address] Performed By: #### T SCR ####[facility] BLOOD BANKIA [id number] [address] HISTORICAL AB SCR STATUS Negative [facility] Comment on above: Order Comment: Speci men Type: BLOOD SPECIMENOrdering Facility: [facility] Address: [address] [place] [address] Performed By: #### T SCR ####[facility] BLOOD BANKCLIA [id number] [address] Rh Nom (Bld) Positive [facility] Comment on above: Order Comment: Speci men Type: BLOOD SPECIMENOrdering Facility: [facility] Address: [address] [place] [address] Performed By: #### T SCR ####[facility] BLOOD BANKCLIA [id number] [address] TYPE AND SCREEN EXPIRATION 08/07/2021 23:59 [facility] Comment on above: Order Comment: Speci men Type: BLOOD SPECIMENOrdering Facility: [facility] Address: [address] [place] [address] Performed By: #### T SCR ####[facility] BLOOD BANKCLIA [id number] [address] [place] aPTT PPPon 08-04-2021 aPTT Coag (PPP) [Time] 51.8 s High 23.0-32.4 [facility] Comment on above: Order Comment: Speci men Type: BLOOD SPECIMENOrdering Facility: [facility] Address: [address] [place] [address] Performed By: #### 1 4979-9 ####[facility] LABORATORYCLIA [id number] [address] OF [facility] Basic metabolic 2000 panelon 08-03-2021 Anion gap [Moles/Vol] 9 mmol/L Normal 9-18 [facility] Comment on above: Order Comment: Speci men Type: BLOOD SPECIMENOrdering Facility: [facility] Address: [address] [place] [address] Performed By: #### 2 4321-2, , 277- ####[facility] LABORATORYCLIA [id number] [place] [address] [place] Calcium [Mass/Vol] 9.3 mg/dL Normal 8.5-10.2 [facility] Comment on above: Order Comment: Speci men Type: BLOOD SPECIMENOrdering Facility: [facility] Address: [address] [place] [address] Performed By: #### 2 4321-2, , 277-1 ####[facility] LABORATORYCLIA [id number] [address] STATES OF [facility] Chloride [Moles/Vol] 97 mmol/L Normal 97-105 [facility] Comment on above: Order Comment: Speci men Type: BLOOD SPECIMENOrdering Facility: [facility] Address: [address] [place] [address] Performed By: #### 2 4321-2, , 2777-1 ####[facility] LABORATORYCLIA [id number] [address] [place] [facility] CO2 [Moles/Vol] 27 mmol/L Normal 22-30 [facility] Comment on above: Order Comment: Speci men Type: BLOOD SPECIMENOrdering Facility: [facility] Address: [address] [place] [address] Performed By: #### 2 4321-2, , 2776-05 ####[facility] LABORATORYCLIA [id number] [address] [place] Creatinine [Mass/Vol] 0.63 mg/dL Low 0.73-1.22 [facility] Comment on above: Order Comment: Speci men Type: BLOOD SPECIMENOrdering Facility: [facility] Address: [address] [place] [place] [address] Performed By: #### 2 4321-2, , 2776-05 ####[facility]STERCLIA [id number] [address] ESTIMATED GLOMERULAR FILTRATION RATE 103 mL/min/1.73m??? Normal >=60 [facility] Comment on above: Order Comment: Speci men Type: BLOOD SPECIMENOrdering Facility: [facility] Address: [address] [place] [address] Result Comment: Luzmaria mated Glomerular Filtration Rate [...] Performed By: #### 2 4321-2, , 2776-05 ####[facility] LABORATORYCLIA [id number] [address] [place] Glucose [Mass/Vol] 136 mg/dL High 74-99 [facility] Comment on above: Order Comment: Speci men Type: BLOOD SPECIMENOrdering Facility: [facility] Address: [address] [place] [address] Result Comment: The [place] [employer] (ADA) [...] Performed By: #### 2 4321-2, , 2776-05 ####[facility] LABORATORYCLIA [id number] [place] [address] [place] Potassium [Moles/Vol] 4.1 mmol/L Normal 3.7-5.1 [facility] Comment on above: Order Comment: Shira feldman Type: BLOOD SPECIMENOrdering Facility: [facility] Address: [address] [place] [address] Performed By: #### 2 4321-2, , 2776-05 ####[facility] LABORATORYCLIA [id number] [place] [address] [place] Sodium [Moles/Vol] 133 mmol/L Low 136-144 [facility] Comment on above: Order Comment: Shira feldman Type: BLOOD SPECIMENOrdering Facility: [facility] Address: [address] [place] [address] Performed By: #### 2 4321-2, , 2776-05 ####[facility] LABORATORYCLIA [id number] [place] [address] [place] Urea nitrogen [Mass/Vol] 40 mg/dL High 9-24 [facility] Comment on above: Order Comment: Shira feldman Type: BLOOD SPECIMENOrdering Facility: [facility] Address: [address] [place] [address] Performed By: #### 2 4321-2, 14882-5, 2777-1 ####[facility]ORATORYCLIA [id number] [address] CASE MANAGEMon 08-03-2021 CASE MANAGEM Normal [facility] CBC W Auto Differential pane l (Bld)on 08-03-2021 Basophils (Bld) [#/Vol] 0.06 10*3/uL Normal <0.11 [facility] Comment on above: Order Comment: Speci men Type: BLOOD SPECIMENOrdering Facility: [facility] Address: [address] [place] [address] Performed By: #### 5 7021-8 ####[facility]ORATORYCLIA [id number] [address] Basophils/100 WBC (Bld) 0.5 % Normal [facility] Comment on above: Order Comment: Speci men Type: BLOOD SPECIMENOrdering Facility: [facility] Address: [address] [place] [address] Performed By: #### 5 7021-8 ####[facility]ATORYCLIA [id number] [address] Differential cell count method Nom (Bld) Auto Normal [facility] Comment on above: Order Comment: Speci men Type: BLOOD SPECIMENOrdering Facility: [facility] Address: [address] [place] [address] Performed By: #### 5 7021-8 ####[facility]ORATORYCLIA [id number] [address] STATES OF [facility] Eosinophils (Bld) [#/Vol] 0.23 10*3/uL Normal <0.46 [facility] Comment on above: Order Comment: Speci men Type: BLOOD SPECIMENOrdering Facility: [facility] Address: [facility] [place] [address] Performed By: #### 5 7021-8 ####[facility]ATORYCLIA [id number] [address] Eosinophils/100 WBC (Bld) 1.8 % Normal [facility] Comment on above: Order Comment: Speci men Type: BLOOD SPECIMENOrdering Facility: [facility] Address: [address] [place] [address] Performed By: #### 5 7021-8 ####[facility]ATORYCLIA [id number] [address] Erythrocyte distribution width (RBC) [Ratio] 17.6 % High 11.5-15.0 [facility] Comment on above: Order Comment: Speci men Type: BLOOD SPECIMENOrdering Facility: [facility] Address: [address] [place] [address] Performed By: #### 5 7021-8 ####[facility]ORATORYCLIA [id number] [address] Hematocrit (Bld) [Volume fraction] 30.7 % Low 39.0-51.0 [facility] Comment on above: Order Comment: Speci men Type: BLOOD SPECIMENOrdering Facility: [facility] Address: [address] [place] [address] Performed By: #### 5 7021-8 ####[facility]ATORYCLIA [id number] [address] Hemoglobin (Bld) [Mass/Vol] 9.3 g/dL Low 13.0-17.0 [facility] Comment on above: Order Comment: Speci men Type: BLOOD SPECIMENOrdering Facility: [facility] Address: [address] [place] [address] Performed By: #### 5 7021-8 ####[facility]ORATORYCLIA [id number] [address] IMMATURE GRAN % 0.6 % Normal [facility] Comment on above: Order Comment: Speci men Type: BLOOD SPECIMENOrdering Facility: [facility] Address: [address] [place] [address] Performed By: #### 5 7021-8 ####[facility]ORATORYCLIA [id number] [address] OF [facility] IMMATURE GRAN ABS 0.08 k/uL Normal <0.10 [facility] Comment on above: Order Comment: Speci men Type: BLOOD SPECIMENOrdering Facility: [facility] Address: [address] [place] [address] Performed By: #### 5 7021-8 ####[facility]ORATORYCLIA [id number] [address] [place] Lymphocytes (Bld) [#/Vol] 2.45 10*3/uL Normal 1.00-4.00 [facility] Comment on above: Order Comment: Speci men Type: BLOOD SPECIMENOrdering Facility: [facility] Address: [address] [place] [address] Performed By: #### 5 7021-8 ####[facility]ATORYCLIA [id number] [address] Lymphocytes/100 WBC (Bld) 19.7 % Normal [facility] Comment on above: Order Comment: Speci men Type: BLOOD SPECIMENOrdering Facility: [facility] Address: [address] [place] [address] Performed By: #### 5 7021-8 ####[facility]ORATORYCLIA [id number] [address] MCH (RBC) [Entitic mass] 28.2 pg Normal 26.0-34.0 [facility] Comment on above: Order Comment: Speci men Type: BLOOD SPECIMENOrdering Facility: [facility] Address: [address] [place] [address] Performed By: #### 5 7021-8 ####[facility]ATORYCLIA [id number] [address] MCHC (RBC) [Mass/Vol] 30.3 g/dL Low 30.5-36.0 [facility] Comment on above: Order Comment: Speci men Type: BLOOD SPECIMENOrdering Facility: [facility] Address: [address] [place] [address] Performed By: #### 5 7021-8 ####[facility]ATORYCLIA [id number] [address] [place] MCV (RBC) [Entitic vol] 93.0 fL Normal 80.0-100.0 [facility] Comment on above: Order Comment: Speci men Type: BLOOD SPECIMENOrdering Facility: [facility] Address: [address] [place] [address] Performed By: #### 5 7021-8 ####[facility]ORATORYCLIA [id number] [address] [place] Monocytes (Bld) [#/Vol] 0.72 10*3/uL Normal <0.87 [facility] Comment on above: Order Comment: Speci men Type: BLOOD SPECIMENOrdering Facility: [facility] Address: [address] [place] [address] Performed By: #### 5 7021-8 ####[facility]ATORYCLIA [id number] [address] Monocytes/100 WBC (Bld) 5.8 % Normal [facility] Comment on above: Order Comment: Speci men Type: BLOOD SPECIMENOrdering Facility: [facility] Address: [address] [place] [address] Performed By: #### 5 7021-8 ####[facility]ORATORYCLIA [id number] [address] [place] Neutrophils (Bld) [#/Vol] 8.92 10*3/uL High 1.45-7.50 [facility] Comment on above: Order Comment: Speci men Type: BLOOD SPECIMENOrdering Facility: [facility] Address: [address] [place] [address] Performed By: #### 5 7021-8 ####[facility]ATORYCLIA [id number] [address] [place] Neutrophils/100 WBC (Bld) 71.6 % Normal [facility] Comment on above: Order Comment: Speci men Type: BLOOD SPECIMENOrdering Facility: [facility] Address: [address] Performed By: #### 5 7021-8 ####[facility]ORATORYCLIA [id number] [address] Nucleated RBC (Bld) [#/Vol] 10*3/uL Normal <0.01 [facility] Comment on above: Order Comment: Speci men Type: BLOOD SPECIMENOrdering Facility: [facility] Address: [address] [place], [place] [address] Performed By: #### 5 7021-8 ####[facility]ATORYCLIA [id number] [address] [place] Nucleated RBC/100 WBC (Bld) [Ratio] 0.0 /100 WBC Normal [facility] Comment on above: Order Comment: Speci men Type: BLOOD SPECIMENOrdering Facility: [facility] Address: [address] [place], [place] [address] Performed By: #### 5 7021-8 ####[facility]ORATORYCLIA [id number] [address] [place] Platelet mean volume (Bld) [Entitic vol] 10.2 fL Normal 9.0-12.7 [facility] Comment on above: Order Comment: Speci men Type: BLOOD SPECIMENOrdering Facility: [facility] Address: [address] [place], [place] [address] Performed By: #### 5 7021-8 ####[facility]ATORYCLIA [id number] [address] [place] Platelets (Bld) [#/Vol] 352 10*3/uL Normal 150-400 [facility] Comment on above: Order Comment: Speci men Type: BLOOD SPECIMENOrdering Facility: [facility] Address: [address] [place], [place] [address] Performed By: #### 5 7021-8 ####[facility]ORATORYCLIA [id number] [address] OF [facility] RBC (Bld) [#/Vol] 3.30 10*6/uL Low 4.20-6.00 [facility] Comment on above: Order Comment: Speci men Type: BLOOD SPECIMENOrdering Facility: [facility] Address: [address] [place] [address] Performed By: #### 5 7021-8 ####[facility]ATORYCLIA [id number] [address] WBC (Bld) [#/Vol] 12.46 10*3/uL High 3.70-11.00 [facility] Comment on above: Order Comment: Speci men Type: BLOOD SPECIMENOrdering Facility: [facility] Address: [address] [place] [address] Performed By: #### 5 7021-8 ####[facility]ATORYCLIA [id number] [address] CONSULT PROGon 08-03-2021 CONSULT PROG Normal [facility] Magnesium SerPl-mCncon 08-03 Magnesium [Mass/Vol] 2.2 mg/dL Normal 1.7-2.3 [facility] Comment on above: Order Comment: Speci men Type: BLOOD SPECIMENOrdering Facility: [facility] Address: [address] [place] [address] Performed By: #### 2 4321-2, 48394-6, 2777-1 ####[facility]ATORYCLIA [id number] [address] [place] NURSING PROGon 08-03-2021 NURSING PROG Normal [facility] Phosphate SerPl-mCncon 08-03 Phosphate [Mass/Vol] 4.2 mg/dL Normal 2.7-4.8 [facility] Comment on above: Order Comment: Speci men Type: BLOOD SPECIMENOrdering Facility: [facility] Address: [address] [place] [address] Performed By: #### 2 4321-2, 27625-4, 2777-1 ####[facility]ORATORYCLIA [id number] [address] aPTT PPPon 08-03-2021 aPTT Coag (PPP) [Time] 50.0 s High 23.0-32.4 [facility] Comment on above: Order Comment: Speci men Type: BLOOD SPECIMENOrdering Facility: [facility] Address: [address] [place] [address] Performed By: #### 1 4979-9 ####[facility]ORATORYCLIA [id number] [address] STATES OF [facility] CBC W Auto Differential pane l (Bld)on 08-02-2021 Basophils (Bld) [#/Vol] 10*3/uL Normal <0.11 [facility] Comment on above: Order Comment: Speci men Type: BLOOD SPECIMENOrdering Facility: [facility] Address: [address] [place] [address] Performed By: #### 5 7021-8 ####[facility]ORATORYCLIA [id number] [address] STATES [facility] Basophils/100 WBC (Bld) 0.2 % Normal [facility] Comment on above: Order Comment: Speci men Type: BLOOD SPECIMENOrdering Facility: [facility] Address: [address] [place] [address] Performed By: #### 5 7021-8 ####[facility]ATORYCLIA [id number] [address] Differential cell count method Nom (Bld) Auto Normal [facility] Comment on above: Order Comment: Speci men Type: BLOOD SPECIMENOrdering Facility: [facility] Address: [address] [place] [address] Performed By: #### 5 7021-8 ####[facility]ORATORYCLIA [id number] [place] [address] [place] Eosinophils (Bld) [#/Vol] 10*3/uL Normal <0.46 [facility] Comment on above: Order Comment: Speci men Type: BLOOD SPECIMENOrdering Facility: [facility] Address: [address] [place] [address] Performed By: #### 5 7021-8 ####[facility]ORATORYCLIA [id number] [address] Eosinophils/100 WBC (Bld) 0.0 % Normal [facility] Comment on above: Order Comment: Speci men Type: BLOOD SPECIMENOrdering Facility: [facility] Address: [address] [place] [address] Performed By: #### 5 7021-8 ####[facility]ORATORYCLIA [id number] [address] [place] Erythrocyte distribution width (RBC) [Ratio] 17.3 % High 11.5-15.0 [facility] Comment on above: Order Comment: Speci men Type: BLOOD SPECIMENOrdering Facility: [facility] Address: [address] [place] [address] Performed By: #### 5 7021-8 ####[facility]ORATORYCLIA [id number] [address] [place] Hematocrit (Bld) [Volume fraction] 30.8 % Low 39.0-51.0 [facility] Comment on above: Order Comment: Speci men Type: BLOOD SPECIMENOrdering Facility: [facility] Address: [address] [place] [address] Performed By: #### 5 7021-8 ####[facility]ATORYCLIA [id number] [address] [place] Hemoglobin (Bld) [Mass/Vol] 9.7 g/dL Low 13.0-17.0 [facility] Comment on above: Order Comment: Speci men Type: BLOOD SPECIMENOrdering Facility: [facility] Address: [address] [place] [address] Performed By: #### 5 7021-8 ####[facility]ATORYCLIA [id number] [address] IMMATURE GRAN % 0.5 % Normal [facility] Comment on above: Order Comment: Speci men Type: BLOOD SPECIMENOrdering Facility: [facility] Address: [address] [place] [address] Performed By: #### 5 7021-8 ####[facility]ATORYCLIA [id number] [address] IMMATURE GRAN ABS 0.07 k/uL Normal <0.10 [facility] Comment on above: Order Comment: Speci men Type: BLOOD SPECIMENOrdering Facility: [facility] Address: [address] [place] [address] Performed By: #### 5 7021-8 ####[facility]ORATORYCLIA [id number] [address] [place] Lymphocytes (Bld) [#/Vol] 1.60 10*3/uL Normal 1.00-4.00 [facility] Comment on above: Order Comment: Speci men Type: BLOOD SPECIMENOrdering Facility: [facility] Address: [address] [place] [address] Performed By: #### 5 7021-8 ####[facility]ORATORYCLIA [id number] [address] Lymphocytes/100 WBC (Bld) 12.1 % Normal [facility] Comment on above: Order Comment: Speci men Type: BLOOD SPECIMENOrdering Facility: [facility] Address: [address] [place] [address] Performed By: #### 5 7021-8 ####[facility]ORATORYCLIA [id number] [place] [address] [place] MCH (RBC) [Entitic mass] 28.6 pg Normal 26.0-34.0 [facility] Comment on above: Order Comment: Speci men Type: BLOOD SPECIMENOrdering Facility: [facility] Address: [address] [place] [address] Performed By: #### 5 7021-8 ####[facility]ORATORYCLIA [id number] [address] STATES [facility] MCHC (RBC) [Mass/Vol] 31.5 g/dL Normal 30.5-36.0 [facility] Comment on above: Order Comment: Speci men Type: BLOOD SPECIMENOrdering Facility: [facility] Address: [address] [place] [address] Performed By: #### 5 7021-8 ####[facility]ORATORYCLIA [id number] [address] MCV (RBC) [Entitic vol] 90.9 fL Normal 80.0-100.0 [facility] Comment on above: Order Comment: Speci men Type: BLOOD SPECIMENOrdering Facility: [facility] Address: [address] [place] [address] Performed By: #### 5 7021-8 ####[facility]ORATORYCLIA [id number] [address] STATES [place] [facility] Monocytes (Bld) [#/Vol] 0.39 10*3/uL Normal <0.87 [facility] Comment on above: Order Comment: Speci men Type: BLOOD SPECIMENOrdering Facility: [facility] Address: [address] [place] [address] Performed By: #### 5 7021-8 ####[facility]ORATORYCLIA [id number] [address] Monocytes/100 WBC (Bld) 3.0 % Normal [facility] Comment on above: Order Comment: Speci men Type: BLOOD SPECIMENOrdering Facility: [facility] Address: [address] [place] [address] Performed By: #### 5 7021-8 ####[facility]ORATORYCLIA [id number] [address] [place] Neutrophils (Bld) [#/Vol] 11.09 10*3/uL High 1.45-7.50 [facility] Comment on above: Order Comment: Speci men Type: BLOOD SPECIMENOrdering Facility: [facility] Address: [address] [place] [address] Performed By: #### 5 7021-8 ####[facility]ORATORYCLIA [id number] [address] Neutrophils/100 WBC (Bld) 84.2 % Normal [facility] Comment on above: Order Comment: Speci men Type: BLOOD SPECIMENOrdering Facility: [facility] Address: [address] [place] [address] Performed By: #### 5 7021-8 ####[facility]ORATORYCLIA [id number] [address] Nucleated RBC (Bld) [#/Vol] 10*3/uL Normal <0.01 [facility] Comment on above: Order Comment: Speci men Type: BLOOD SPECIMENOrdering Facility: [facility] Address: [address] [place] [address] Performed By: #### 5 7021-8 ####[facility]ORATORYCLIA [id number] [address] Nucleated RBC/100 WBC (Bld) [Ratio] 0.0 /100 WBC Normal [facility] Comment on above: Order Comment: Speci men Type: BLOOD SPECIMENOrdering Facility: [facility] Address: [address] [place] [address] Performed By: #### 5 7021-8 ####[facility]ORATORYCLIA [id number] [address] Platelet mean volume (Bld) [Entitic vol] 10.0 fL Normal 9.0-12.7 [facility] Comment on above: Order Comment: Speci men Type: BLOOD SPECIMENOrdering Facility: [facility] Address: [address] [place] [address] Performed By: #### 5 7021-8 ####[facility]ORATORYCLIA [id number] [address] [place] Platelets (Bld) [#/Vol] 358 10*3/uL Normal 150-400 [facility] Comment on above: Order Comment: Speci men Type: BLOOD SPECIMENOrdering Facility: [facility] Address: [address] [place] [address] Performed By: #### 5 7021-8 ####[facility]ORATORYCLIA [id number] [address] OF [facility] RBC (Bld) [#/Vol] 3.39 10*6/uL Low 4.20-6.00 [facility] Comment on above: Order Comment: Speci men Type: BLOOD SPECIMENOrdering Facility: [facility] Address: [address] [place] [address] Performed By: #### 5 7021-8 ####[facility]ORATORYCLIA [id number] [address] WBC (Bld) [#/Vol] 13.17 10*3/uL High 3.70-11.00 [facility] Comment on above: Order Comment: Speci men Type: BLOOD SPECIMENOrdering Facility: [facility] Address: [address] [place] [address] Performed By: #### 5 7021-8 ####[facility]ORATORYCLIA [id number] [address] NURSING PROGon 08-02-2021 NURSING PROG Normal [facility] THERAPY NTon 08-02-2021 THERAPY NT Normal [facility] aPTT PPPon 08-02-2021 aPTT Coag (PPP) [Time] 54.9 s High 23.0-32.4 [facility] Comment on above: Order Comment: Speci men Type: BLOOD SPECIMENOrdering Facility: [facility] Address: [address] [place] [address] Performed By: #### 1 4979-9 ####[facility]ORATORYCLIA [id number] [address] ALLIED HEALTHon 08-01-2021 ALLIED HEALTH Normal [facility] ALLIED HEALTH Normal [facility] Basic metabolic 2000 panelon 08-01-2021 Anion gap [Moles/Vol] 12 mmol/L Normal 9-18 [facility] Comment on above: Order Comment: Speci men Type: BLOOD SPECIMENOrdering Facility: [facility] Address: [address] [place] [address] Performed By: #### 2 4321-2, 02884-5, 07937-4, 2777-1 ####[facility] LABORATORYCLIA [id number] [place] [address] [place] Calcium [Mass/Vol] 9.1 mg/dL Normal 8.5-10.2 [facility] Comment on above: Order Comment: Speci men Type: BLOOD SPECIMENOrdering Facility: [facility] Address: [address] [place] [address] Performed By: #### 2 4321-2, 39401-6, 65455-3, 2777-1 ####[facility] LABORATORYCLIA [id number] [place] [address] [place] Chloride [Moles/Vol] 96 mmol/L Low 97-105 [facility] Comment on above: Order Comment: Speci men Type: BLOOD SPECIMENOrdering Facility: [facility] Address: [address] [place] [address] Performed By: #### 2 4321-2, 19043-4, 30494-4, 2777-1 ####[facility] LABORATORYCLIA [id number] [place] [address] [place] CO2 [Moles/Vol] 27 mmol/L Normal 22-30 [facility] Comment on above: Order Comment: Speci men Type: BLOOD SPECIMENOrdering Facility: [facility] Address: [address] [place] [address] Performed By: #### 2 4321-2, 50199-5, 76169-7, 2777-1 ####[facility] LABORATORYCLIA [id number] [address] OF [facility] Creatinine [Mass/Vol] 0.64 mg/dL Low 0.73-1.22 [facility] Comment on above: Order Comment: Shira feldman Type: BLOOD SPECIMENOrdering Facility: [facility] [facility] Address: [address] [address] Performed By: #### 2 4321-2, 01196-7, 16831-2, 2777-1 ####[facility] LABORATORYCLIA [id number] [address] ESTIMATED GLOMERULAR FILTRATION RATE 102 mL/min/1.73m??? Normal >=60 [facility] Comment on above: Order Comment: Shira feldman Type: BLOOD SPECIMENOrdering Facility: [facility] Address: [address] [address] Result Comment: Luzmaria mated Glomerular Filtration Rate [...] actual GFR. Performed By: #### 2 4321-2, 23748-0, 77993-3, 2777-1 ####[facility] LABORATORYCLIA [id number] [address] [place] Glucose [Mass/Vol] 122 mg/dL High 74-99 [facility] Comment on above: Order Comment: Shira feldman Type: BLOOD SPECIMENOrdering Facility: [facility] Address: [address] [address] Result Comment: The [place] [employer] (ADA) [...] 2016.39(Suppl 1). Performed By: #### 2 4321-2, 39234-0, 85311-8, 2777-1 ####[facility] LABORATORYCLIA [id number] [place] [address] [place] Potassium [Moles/Vol] 4.2 mmol/L Normal 3.7-5.1 [facility] Comment on above: Order Comment: Speci men Type: BLOOD SPECIMENOrdering Facility: [facility] Address: [address] [place] [address] Performed By: #### 2 4321-2, 04881-2, 36444-1, 2777-1 ####[facility] LABORATORYCLIA [id number] [address] STATES OF [facility] Sodium [Moles/Vol] 135 mmol/L Low 136-144 [facility] Comment on above: Order Comment: Speci men Type: BLOOD SPECIMENOrdering Facility: [facility] Address: [address] [place] [address] Performed By: #### 2 4321-2, 86794-6, 08824-7, 2776- ####[facility] LABORATORYCLIA [id number] [address] STATES OF [facility] Urea nitrogen [Mass/Vol] 36 mg/dL High 9-24 [facility] Comment on above: Order Comment: Speci men Type: BLOOD SPECIMENOrdering Facility: [facility] Address: [address] [place] [address] Performed By: #### 2 4321-2, 93511-8, 68324-0, 2777-1 ####[facility] LABORATORYCLIA [id number] [place] [address] [place] CASE MANAGEMon 08-01-2021 CASE MANAGEM Normal [facility] CBC W Auto Differential pane l (Bld)on 08-01-2021 Basophils (Bld) [#/Vol] 0.04 10*3/uL Normal <0.11 [facility] Comment on above: Order Comment: Speci men Type: BLOOD SPECIMENOrdering Facility: [facility] Address: [address] [place] [address] Performed By: #### 5 7021-8 ####[facility]ORATORYCLIA [id number] [address] [place] Basophils/100 WBC (Bld) 0.3 % Normal [facility] Comment on above: Order Comment: Speci men Type: BLOOD SPECIMENOrdering Facility: [facility] Address: [address] [place] [address] Performed By: #### 5 7021-8 ####[facility]ORATORYCLIA [id number] [address] [place] Differential cell count method Nom (Bld) Auto Normal [facility] Comment on above: Order Comment: Speci men Type: BLOOD SPECIMENOrdering Facility: [facility] Address: [address] [place] [address] Performed By: #### 5 7021-8 ####[facility]ORATORYCLIA [id number] [address] [place] Eosinophils (Bld) [#/Vol] 0.37 10*3/uL Normal <0.46 [facility] Comment on above: Order Comment: Speci men Type: BLOOD SPECIMENOrdering Facility: [facility] Address: [address] [place] [address] Performed By: #### 5 7021-8 ####[facility]ORATORYCLIA [id number] [address] [place] Eosinophils/100 WBC (Bld) 3.1 % Normal [facility] Comment on above: Order Comment: Speci men Type: BLOOD SPECIMENOrdering Facility: [facility] Address: [address] [place] [address] Performed By: #### 5 7021-8 ####[facility]ORATORYCLIA [id number] [address] Erythrocyte distribution width (RBC) [Ratio] 17.5 % High 11.5-15.0 [facility] Comment on above: Order Comment: Speci men Type: BLOOD SPECIMENOrdering Facility: [facility] Address: [address] [place] [address] Performed By: #### 5 7021-8 ####[facility] LABORATORYCLIA [id number] [address] Hematocrit (Bld) [Volume fraction] 30.1 % Low 39.0-51.0 [facility] Comment on above: Order Comment: Speci men Type: BLOOD SPECIMENOrdering Facility: [facility] Address: [address] [place] [address] Performed By: #### 5 7021-8 ####[facility]CLIA [id number] [address] OF [facility] Hemoglobin (Bld) [Mass/Vol] 9.1 g/dL Low 13.0-17.0 [facility] Comment on above: Order Comment: Speci men Type: BLOOD SPECIMENOrdering Facility: [facility] Address: [address] [place] [address] Performed By: #### 5 7021-8 ####[facility] LABORATORYCLIA [id number] [address] IMMATURE GRAN % 0.6 % Normal [facility] Comment on above: Order Comment: Speci men Type: BLOOD SPECIMENOrdering Facility: [facility] Address: [address] [place] [address] Performed By: #### 5 7021-8 ####[facility] LABORATORYCLIA [id number] [address] IMMATURE GRAN ABS 0.07 k/uL Normal <0.10 [facility] Comment on above: Order Comment: Speci men Type: BLOOD SPECIMENOrdering Facility: [facility] Address: [address] [place] [address] Performed By: #### 5 7021-8 ####[facility] LABORATORYCLIA [id number] [address] Lymphocytes (Bld) [#/Vol] 2.05 10*3/uL Normal 1.00-4.00 [facility] Comment on above: Order Comment: Speci men Type: BLOOD SPECIMENOrdering Facility: [facility] Address: [address] [place] [address] Performed By: #### 5 7021-8 ####[facility] LABORATORYCLIA [id number] [address] Lymphocytes/100 WBC (Bld) 17.1 % Normal [facility] Comment on above: Order Comment: Speci men Type: BLOOD SPECIMENOrdering Facility: [facility] Address: [address] [place] [address] Performed By: #### 5 7021-8 ####[facility] LABORATORYCLIA [id number] [address] MCH (RBC) [Entitic mass] 27.7 pg Normal 26.0-34.0 [facility] Comment on above: Order Comment: Speci men Type: BLOOD SPECIMENOrdering Facility: [facility] Address: [address] [place] [address] Performed By: #### 5 7021-8 ####[facility] LABORATORYCLIA [id number] [address] STATES OF [facility] MCHC (RBC) [Mass/Vol] 30.2 g/dL Low 30.5-36.0 [facility] Comment on above: Order Comment: Speci men Type: BLOOD SPECIMENOrdering Facility: [facility] Address: [address] [place] [address] Performed By: #### 5 7021-8 ####[facility] LABORATORYCLIA [id number] [address] [place] MCV (RBC) [Entitic vol] 91.5 fL Normal 80.0-100.0 [facility] Comment on above: Order Comment: Speci men Type: BLOOD SPECIMENOrdering Facility: [facility] Address: [address] [place] [address] Performed By: #### 5 7021-8 ####[facility]ATORYCLIA [id number] [address] [place] Monocytes (Bld) [#/Vol] 0.53 10*3/uL Normal <0.87 [facility] Comment on above: Order Comment: Speci men Type: BLOOD SPECIMENOrdering Facility: [facility] Address: [address] [place] [address] Performed By: #### 5 7021-8 ####[facility]ORATORYCLIA [id number] [address] Monocytes/100 WBC (Bld) 4.4 % Normal [facility] Comment on above: Order Comment: Speci men Type: BLOOD SPECIMENOrdering Facility: [facility] Address: [address] [place] [address] Performed By: #### 5 7021-8 ####[facility] LABORATORYCLIA [id number] [address] [place] Neutrophils (Bld) [#/Vol] 8.91 10*3/uL High 1.45-7.50 [facility] Comment on above: Order Comment: Speci men Type: BLOOD SPECIMENOrdering Facility: [facility] Address: [address] [place] [address] Performed By: #### 5 7021-8 ####[facility]ATORYCLIA [id number] [address] [place] Neutrophils/100 WBC (Bld) 74.5 % Normal [facility] Comment on above: Order Comment: Speci men Type: BLOOD SPECIMENOrdering Facility: [facility] Address: [address] [place] [address] Performed By: #### 5 7021-8 ####[facility]ORATORYCLIA [id number] [address] [place] Nucleated RBC (Bld) [#/Vol] 10*3/uL Normal <0.01 [facility] Comment on above: Order Comment: Speci men Type: BLOOD SPECIMENOrdering Facility: [facility] Address: [address] [place] [address] Performed By: #### 5 7021-8 ####[facility] LABORATORYCLIA [id number] [address] [place] Nucleated RBC/100 WBC (Bld) [Ratio] 0.0 /100 WBC Normal [facility] Comment on above: Order Comment: Speci men Type: BLOOD SPECIMENOrdering Facility: [facility] Address: [address] [place] [address] Performed By: #### 5 7021-8 ####[facility] LABORATORYCLIA [id number] [address] [place] Platelet mean volume (Bld) [Entitic vol] 10.4 fL Normal 9.0-12.7 [facility] Comment on above: Order Comment: Speci men Type: BLOOD SPECIMENOrdering Facility: [facility] Address: [address] [place] [address] Performed By: #### 5 7021-8 ####[facility] LABORATORYCLIA [id number] [address] [place] Platelets (Bld) [#/Vol] 319 10*3/uL Normal 150-400 [facility] Comment on above: Order Comment: Speci men Type: BLOOD SPECIMENOrdering Facility: [facility] Address: [address] [place] [address] Performed By: #### 5 7021-8 ####[facility] LABORATORYCLIA [id number] [address] [place] RBC (Bld) [#/Vol] 3.29 10*6/uL Low 4.20-6.00 [facility] Comment on above: Order Comment: Speci men Type: BLOOD SPECIMENOrdering Facility: [facility] Address: [address] [place] [id number] Performed By: #### 5 7021-8 ####[facility] LABORATORYCLIA [id number] [place] [address] [place] WBC (Bld) [#/Vol] 11.97 10*3/uL High 3.70-11.00 [facility] Comment on above: Order Comment: Speci men Type: BLOOD SPECIMENOrdering Facility: [facility] Address[address] [address] [place] [address] Performed By: #### 5 7021-8 ####[facility] LABORATORYCLIA [id number] [address] [place] CT BRAIN WO IVCONon 08-02-19 CT BRAIN WO IVCON Normal [facility] Magnesium SerPl-mCncon 08-01 Magnesium [Mass/Vol] 2.4 mg/dL High 1.7-2.3 [facility] Comment on above: Order Comment: Speci men Type: BLOOD SPECIMENOrdering Facility: [facility] Address: [address] [address] Performed By: #### 2 4321-2, 41013-8, 92828-4, 2777-1 ####[facility] LABORATORYCLIA [id number] [address] [place] NURSING PROGon 08-01-2021 NURSING PROG Normal [facility] NUTRITIONon 08-01-2021 NUTRITION Normal [facility] Phosphate SerPl-mCncon 08-01 Phosphate [Mass/Vol] 3.3 mg/dL Normal 2.7-4.8 [facility] Comment on above: Order Comment: Speci men Type: BLOOD SPECIMENOrdering Facility: [facility] Address: [address] [address] [address] Performed By: #### 2 4321-2, 78093-1, 91767-7, 2777-1 ####[facility]ATORYCLIA [id number] [address] [place] Prealbumin [Mass/Vol]on 07-06 Prealbumin Nephelometry [Mass/Vol] 30 mg/dL Normal 17-36 [facility] Comment on above: Order Comment: Speci men Type: BLOOD SPECIMENOrdering Facility: [facility] Address: [address] [place] [address] Performed By: #### 2 4321-2, 94314-0, 80968-0, 2777-1 ####[facility]ORATORYCLIA [id number] [address] THERAPY NTon 08-01-2021 THERAPY NT Normal [facility] THERAPY NT Normal [facility] TYPE AND SCREENon 08-01-2021 ABO O Normal [facility] Comment on above: Order Comment: Speci men Type: BLOOD SPECIMENOrdering Facility: [facility] Address: [address] [place] [address] Performed By: #### T SCR ####[facility] BLOOD BANKCLIA [id number] [address] HISTORICAL AB SCR STATUS Negative [facility] Comment on above: Order Comment: Speci men Type: BLOOD SPECIMENOrdering Facility: [facility] Address: [address] [place] [address] Performed By: #### T SCR ####[facility] BLOOD BANKCLIA [id number] [address] Rh Nom (Bld) Positive [facility] Comment on above: Order Comment: Speci men Type: BLOOD SPECIMENOrdering Facility: [facility] Address: [address] [place] [address] Performed By: #### T SCR ####[facility] BLOOD BANKCLIA [id number] [address] TYPE AND SCREEN EXPIRATION 08/04/2021 23:59 Normal [facility] Comment on above: Order Comment: Speci men Type: BLOOD SPECIMENOrdering Facility: [facility] Address: [address] [place] [address] Performed By: #### T SCR ####[facility] BLOOD BANKCLIA [id number] [address] XR CHEST 1V FRONTALon 2021 XR CHEST 1V FRONTAL Normal [facility] aPTT PPPon 08-01-2021 aPTT Coag (PPP) [Time] 50.9 s High 23.0-32.4 [facility] Comment on above: Order Comment: Speci men Type: BLOOD SPECIMENOrdering Facility: [facility] Address: [address] [place] [address] Performed By: #### 1 4979-9 ####[facility] LABORATORYCLIA [id number] [address] CBC W Auto Differential pane l (Bld)on 07-31-2021 Basophils (Bld) [#/Vol] 0.05 10*3/uL Normal <0.11 [facility] Comment on above: Order Comment: Speci men Type: BLOOD SPECIMENOrdering Facility: [facility] Address: [address] [place] [address] Performed By: #### 5 7021-8 ####[facility] LABORATORYCLIA [id number] [address] Basophils/100 WBC (Bld) 0.4 % Normal [facility] Comment on above: Order Comment: Speci men Type: BLOOD SPECIMENOrdering Facility: [facility] Address: [address] [place] [address] Performed By: #### 5 7021-8 ####[facility] LABORATORYCLIA [id number] [address] Differential cell count method Nom (Bld) Auto Normal [facility] Comment on above: Order Comment: Speci men Type: BLOOD SPECIMENOrdering Facility: [facility] Address: [address] [place] [address] Performed By: #### 5 7021-8 ####[facility] LABORATORYCLIA [id number] [address] [place] Eosinophils (Bld) [#/Vol] 0.51 10*3/uL High <0.46 [facility] Comment on above: Order Comment: Speci men Type: BLOOD SPECIMENOrdering Facility: [facility] Address: [address] [place] [address] Performed By: #### 5 7021-8 ####[facility] LABORATORYCLIA [id number] [address] [place] Eosinophils/100 WBC (Bld) 4.5 % Normal [facility] Comment on above: Order Comment: Speci men Type: BLOOD SPECIMENOrdering Facility: [facility] Address: [address] [place] [address] Performed By: #### 5 7021-8 ####[facility] LABORATORYCLIA [id number] [address] [place] Erythrocyte distribution width (RBC) [Ratio] 17.5 % High 11.5-15.0 [facility] Comment on above: Order Comment: Speci men Type: BLOOD SPECIMENOrdering Facility: [facility] Address: [address] [place] [address] Performed By: #### 5 7021-8 ####[facility] LABORATORYCLIA [id number] [address] [place] Hematocrit (Bld) [Volume fraction] 30.4 % Low 39.0-51.0 [facility] Comment on above: Order Comment: Speci men Type: BLOOD SPECIMENOrdering Facility: [facility] Address: [address] [place] [address] Performed By: #### 5 7021-8 ####[facility] LABORATORYCLIA [id number] [address] [place] Hemoglobin (Bld) [Mass/Vol] 9.2 g/dL Low 13.0-17.0 [facility] Comment on above: Order Comment: Speci men Type: BLOOD SPECIMENOrdering Facility: [facility] Address: [address] [place] [address] Performed By: #### 5 7021-8 ####[facility]ORATORYCLIA [id number] [address] IMMATURE GRAN % 0.5 % Normal [facility] Comment on above: Order Comment: Speci men Type: BLOOD SPECIMENOrdering Facility: [facility] Address: [address] [place] [address] Performed By: #### 5 7021-8 ####[facility] LABORATORYCLIA [id number] [address] IMMATURE GRAN ABS 0.06 k/uL Normal <0.10 [facility] Comment on above: Order Comment: Speci men Type: BLOOD SPECIMENOrdering Facility: [facility] Address: [address] [place] [address] Performed By: #### 5 7021-8 ####[facility] LABORATORYCLIA [id number] [address] Lymphocytes (Bld) [#/Vol] 1.99 10*3/uL Normal 1.00-4.00 [facility] Comment on above: Order Comment: Speci men Type: BLOOD SPECIMENOrdering Facility: [facility] Address: [address] [place] [address] Performed By: #### 5 7021-8 ####[facility] LABORATORYCLIA [id number] [address] Lymphocytes/100 WBC (Bld) 17.6 % Normal [facility] Comment on above: Order Comment: Speci men Type: BLOOD SPECIMENOrdering Facility: [facility] Address: [address] [place] [address] Performed By: #### 5 7021-8 ####[facility] LABORATORYCLIA [id number] [address] MCH (RBC) [Entitic mass] 28.4 pg Normal 26.0-34.0 [facility] Comment on above: Order Comment: Speci men Type: BLOOD SPECIMENOrdering Facility: [facility] Address: [address] [place] [address] Performed By: #### 5 7021-8 ####[facility] LABORATORYCLIA [id number] [address] STATES [facility] MCHC (RBC) [Mass/Vol] 30.3 g/dL Low 30.5-36.0 [facility] Comment on above: Order Comment: Speci men Type: BLOOD SPECIMENOrdering Facility: [facility] Address: [address] [place] [address] Performed By: #### 5 7021-8 ####[facility] LABORATORYCLIA [id number] [address] MCV (RBC) [Entitic vol] 93.8 fL Normal 80.0-100.0 [facility] Comment on above: Order Comment: Speci men Type: BLOOD SPECIMENOrdering Facility: [facility] Address: [address] [place] [address] Performed By: #### 5 7021-8 ####[facility] LABORATORYCLIA [id number] [address] OF [facility] Monocytes (Bld) [#/Vol] 0.57 10*3/uL Normal <0.87 [facility] Comment on above: Order Comment: Speci men Type: BLOOD SPECIMENOrdering Facility: [facility] Address: [address] [place] [address] Performed By: #### 5 7021-8 ####[facility] LABORATORYCLIA [id number] [address] Monocytes/100 WBC (Bld) 5.0 % Normal [facility] Comment on above: Order Comment: Speci men Type: BLOOD SPECIMENOrdering Facility: [facility] Address: [address] [place] [address] Performed By: #### 5 7021-8 ####[facility] LABORATORYCLIA [id number] [address] [place] Neutrophils (Bld) [#/Vol] 8.12 10*3/uL High 1.45-7.50 [facility] Comment on above: Order Comment: Speci men Type: BLOOD SPECIMENOrdering Facility: [facility] Address: [address] [place] [address] Performed By: #### 5 7021-8 ####[facility] LABORATORYCLIA [id number] [address] Neutrophils/100 WBC (Bld) 72.0 % Normal [facility] Comment on above: Order Comment: Speci men Type: BLOOD SPECIMENOrdering Facility: [facility] Address: [address] [place] [address] Performed By: #### 5 7021-8 ####[facility] LABORATORYCLIA [id number] [address] [place] Nucleated RBC (Bld) [#/Vol] 10*3/uL Normal <0.01 [facility] Comment on above: Order Comment: Speci men Type: BLOOD SPECIMENOrdering Facility: [facility] Address: [address] [place] [address] Performed By: #### 5 7021-8 ####[facility] LABORATORYCLIA [id number] [address] Nucleated RBC/100 WBC (Bld) [Ratio] 0.0 /100 WBC Normal [facility] Comment on above: Order Comment: Speci men Type: BLOOD SPECIMENOrdering Facility: [facility] Address: [address] [place] [address] Performed By: #### 5 7021-8 ####[facility] LABORATORYCLIA [id number] [address] Platelet mean volume (Bld) [Entitic vol] 10.9 fL Normal 9.0-12.7 [facility] Comment on above: Order Comment: Speci men Type: BLOOD SPECIMENOrdering Facility: [facility] Address: [address] [place] [address] Performed By: #### 5 7021-8 ####[facility] LABORATORYCLIA [id number] [address] OF [facility] Platelets (Bld) [#/Vol] 303 10*3/uL Normal 150-400 [facility] Comment on above: Order Comment: Speci men Type: BLOOD SPECIMENOrdering Facility: [facility] Address: [address] [place] [address] Performed By: #### 5 7021-8 ####[facility] LABORATORYCLIA [id number] [address] [facility] RBC (Bld) [#/Vol] 3.24 10*6/uL Low 4.20-6.00 [facility] Comment on above: Order Comment: Speci men Type: BLOOD SPECIMENOrdering Facility: [facility] Address: [address] [place] [address] Performed By: #### 5 7021-8 ####[facility] LABORATORYCLIA [id number] [address] WBC (Bld) [#/Vol] 11.30 10*3/uL High 3.70-11.00 [facility] Comment on above: Order Comment: Speci men Type: BLOOD SPECIMENOrdering Facility: [facility] Address: [address] [place] [address] Performed By: #### 5 7021-8 ####[facility] LABORATORYCLIA [id number] [address] [facility] NURSING PROGon 07-31-2021 NURSING PROG Normal [facility] aPTT PPPon 07-31-2021 aPTT Coag (PPP) [Time] 64.9 s High 23.0-32.4 [facility] Comment on above: Order Comment: Speci men Type: BLOOD SPECIMENOrdering Facility: [facility] Address: [address] [place] [address] Performed By: #### 1 4979-9 ####[facility] LABORATORYCLIA [id number] [address] ALLIED HEALTHon 07-30-2021 ALLIED HEALTH Normal [facility] Bacteria CSF Culton 07-31-19 22 Bacteria identified Cx Nom (CSF) CULTURE, CSF: No growth 14 days GRAM STAIN: No organisms seen Few Mononuclear cells Rare Polymorphonuclear leukocytes Gram stain performed on cytospun specimen. Normal [facility] Comment on above: Performed By: #### 6 06-4 ####[facility] LABORATORYCLIA [id number] [place] [address] [place] Basic metabolic 2000 panelon 07-30-2021 Anion gap [Moles/Vol] 9 mmol/L Normal 9-18 [facility] Comment on above: Order Comment: Speci men Type: BLOOD SPECIMENOrdering Facility: [facility] Address: [address] [place] [address] Performed By: #### 2 777-1, 27596-1, ####[facility] LABORATORYCLIA [id number] [place] [address] [place] Calcium [Mass/Vol] 8.9 mg/dL Normal 8.5-10.2 [facility] Comment on above: Order Comment: Speci men Type: BLOOD SPECIMENOrdering Facility: [facility] Address: [address] [place] [address] Performed By: #### 2 777-1, 87680-6, ####[facility] LABORATORYCLIA [id number] [place] [address] [place] Chloride [Moles/Vol] 95 mmol/L Low 97-105 [facility] Comment on above: Order Comment: Speci men Type: BLOOD SPECIMENOrdering Facility: [facility] Address: [address] [place] [address] Performed By: #### 2 777-1, 52254-9, ####[facility] LABORATORYCLIA [id number] [place] [address] [place] CO2 [Moles/Vol] 28 mmol/L Normal 22-30 [facility] Comment on above: Order Comment: Speci men Type: BLOOD SPECIMENOrdering Facility: [facility] Address: [address] [place] [address] Performed By: #### 2 777-1, 06868-9, ####[facility] HOSPITALIA [id number] [place] [address] [place] Creatinine [Mass/Vol] 0.67 mg/dL Low 0.73-1.22 [facility] Comment on above: Order Comment: Speci men Type: BLOOD SPECIMENOrdering Facility: [facility] Address: [address] [place] [address] Performed By: #### 2 777-1, 95300-7, ####[facility] HOSPITALIA [id number] [address] [place] ESTIMATED GLOMERULAR FILTRATION RATE 101 mL/min/1.73m??? Normal >=60 [facility] Comment on above: Order Comment: Speci men Type: BLOOD SPECIMENOrdering Facility: [facility] Address: [address] [place] [address] Result Comment: Luzmaria mated Glomerular Filtration Rate [...] actual GFR. Performed By: #### 2 777-1, 34698-1, ####[facility] HOSPITALIA [id number] [place] [address] [place] Glucose [Mass/Vol] 125 mg/dL High 74-99 [facility] Comment on above: Order Comment: Speci men Type: BLOOD SPECIMENOrdering Facility: [facility] Address: [address] [place] [address] Result Comment: The [place] [employer] (ADA) [...] 2016.39(Suppl 1). Performed By: #### 2 777-1, 33847-6, ####[facility] LABORATORYCLIA [id number] [place] [address] [place] Potassium [Moles/Vol] 3.9 mmol/L Normal 3.7-5.1 [facility] Comment on above: Order Comment: Shira feldman Type: BLOOD SPECIMENOrdering Facility: [facility] Address: [address] [place] [address] Performed By: #### 2 777-1, , ####[facility] MUNSTERCLIA [id number] [place] [address] [place] Sodium [Moles/Vol] 132 mmol/L Low 136-144 [facility] Comment on above: Order Comment: Shira feldman Type: BLOOD SPECIMENOrdering Facility: [facility] Address: [address] [place] [address] Performed By: #### 2 777-1, , ####[facility] LABORATORYCLIA [id number] [place] [address] [place] Urea nitrogen [Mass/Vol] 38 mg/dL High 9-24 [facility] Comment on above: Order Comment: Shira feldman Type: BLOOD SPECIMENOrdering Facility: [facility] Address: [address] [place] [address] Performed By: #### 2 777-1, , ####[facility]ORATORYCLIA [id number] [address] [place] CBC W Auto Differential pane l (Bld)on 07-30-2021 Basophils (Bld) [#/Vol] 0.04 10*3/uL Normal <0.11 [facility] Comment on above: Order Comment: Speci men Type: BLOOD SPECIMENOrdering Facility: [facility] Address: [address] [place] [address] Performed By: #### 5 7021-8 ####[facility] LABORATORYCLIA [id number] [address] Basophils/100 WBC (Bld) 0.4 % Normal [facility] Comment on above: Order Comment: Speci men Type: BLOOD SPECIMENOrdering Facility: [facility] Address: [address] [place] [address] Performed By: #### 5 7021-8 ####[facility]ORATORYCLIA [id number] [address] Differential cell count method Nom (Bld) Auto Normal [facility] Comment on above: Order Comment: Speci men Type: BLOOD SPECIMENOrdering Facility: [facility] Address: [address] [place] [address] Performed By: #### 5 7021-8 ####[facility]ORATORYCLIA [id number] [address] [place] Eosinophils (Bld) [#/Vol] 0.30 10*3/uL Normal <0.46 [facility] Comment on above: Order Comment: Speci men Type: BLOOD SPECIMENOrdering Facility: [facility] Address: [address] [place] [address] Performed By: #### 5 7021-8 ####[facility] LABORATORYCLIA [id number] [address] Eosinophils/100 WBC (Bld) 2.7 % Normal [facility] Comment on above: Order Comment: Speci men Type: BLOOD SPECIMENOrdering Facility: [facility] Address: [address] [place] [address] Performed By: #### 5 7021-8 ####[facility]ORATORYCLIA [id number] [address] Erythrocyte distribution width (RBC) [Ratio] 17.2 % High 11.5-15.0 [facility] Comment on above: Order Comment: Speci men Type: BLOOD SPECIMENOrdering Facility: [facility] Address: [address] [place] [address] Performed By: #### 5 7021-8 ####[facility] LABORATORYCLIA [id number] [address] Hematocrit (Bld) [Volume fraction] 30.8 % Low 39.0-51.0 [facility] Comment on above: Order Comment: Speci men Type: BLOOD SPECIMENOrdering Facility: [facility] Address: [address] [place] [address] Performed By: #### 5 7021-8 ####[facility]ORATORYCLIA [id number] [address] Hemoglobin (Bld) [Mass/Vol] 9.4 g/dL Low 13.0-17.0 [facility] Comment on above: Order Comment: Speci men Type: BLOOD SPECIMENOrdering Facility: [facility] Address: [address] [place] [address] Performed By: #### 5 7021-8 ####[facility]ORATORYCLIA [id number] [address] IMMATURE GRAN % 0.5 % Normal [facility] Comment on above: Order Comment: Speci men Type: BLOOD SPECIMENOrdering Facility: [facility] Address: [address] [place] [address] Performed By: #### 5 7021-8 ####[facility]ORATORYCLIA [id number] [address] IMMATURE GRAN ABS 0.06 k/uL Normal <0.10 [facility] Comment on above: Order Comment: Speci men Type: BLOOD SPECIMENOrdering Facility: [facility] Address: [address] [place] [address] Performed By: #### 5 7021-8 ####[facility]ORATORYCLIA [id number] [address] Lymphocytes (Bld) [#/Vol] 1.68 10*3/uL Normal 1.00-4.00 [facility] Comment on above: Order Comment: Speci men Type: BLOOD SPECIMENOrdering Facility: [facility] Address: [address] [place] [address] Performed By: #### 5 7021-8 ####[facility]ORATORYCLIA [id number] [address] Lymphocytes/100 WBC (Bld) 15.3 % Normal [facility] Comment on above: Order Comment: Speci men Type: BLOOD SPECIMENOrdering Facility: [facility] Address: [address] [place] [address] Performed By: #### 5 7021-8 ####[facility]ORATORYCLIA [id number] [address] MCH (RBC) [Entitic mass] 28.0 pg Normal 26.0-34.0 [facility] Comment on above: Order Comment: Speci men Type: BLOOD SPECIMENOrdering Facility: [facility] Address: [address] [place] [address] Performed By: #### 5 7021-8 ####[facility] LABORATORYCLIA [id number] [address] STATES [facility] MCHC (RBC) [Mass/Vol] 30.5 g/dL Normal 30.5-36.0 [facility] Comment on above: Order Comment: Speci men Type: BLOOD SPECIMENOrdering Facility: [facility] Address: [address] [place] [address] Performed By: #### 5 7021-8 ####[facility]ORATORYCLIA [id number] [place] [address] [place] MCV (RBC) [Entitic vol] 91.7 fL Normal 80.0-100.0 [facility] Comment on above: Order Comment: Speci men Type: BLOOD SPECIMENOrdering Facility: [facility] Address: [address] [place] [address] Performed By: #### 5 7021-8 ####[facility]ORATORYCLIA [id number] [place] [address] [place] Monocytes (Bld) [#/Vol] 0.53 10*3/uL Normal <0.87 [facility] Comment on above: Order Comment: Speci men Type: BLOOD SPECIMENOrdering Facility: [facility] Address: [address] [place] [address] Performed By: #### 5 7021-8 ####[facility]ORATORYCLIA [id number] [address] STATES [facility] Monocytes/100 WBC (Bld) 4.8 % Normal [facility] Comment on above: Order Comment: Speci men Type: BLOOD SPECIMENOrdering Facility: [facility] Address: [address] [place] [address] Performed By: #### 5 7021-8 ####[facility]ORATORYCLIA [id number] [address] [place] Neutrophils (Bld) [#/Vol] 8.39 10*3/uL High 1.45-7.50 [facility] Comment on above: Order Comment: Speci men Type: BLOOD SPECIMENOrdering Facility: [facility] Address: [address] [place] [address] Performed By: #### 5 7021-8 ####[facility]ORATORYCLIA [id number] [address] [place] Neutrophils/100 WBC (Bld) 76.3 % Normal [facility] Comment on above: Order Comment: Speci men Type: BLOOD SPECIMENOrdering Facility: [facility] Address: [address] [place] [address] Performed By: #### 5 7021-8 ####[facility]ORATORYCLIA [id number] [place] [address] [place] Nucleated RBC (Bld) [#/Vol] 10*3/uL Normal <0.01 [facility] Comment on above: Order Comment: Speci men Type: BLOOD SPECIMENOrdering Facility: [facility] Address: [address] [place] [address] Performed By: #### 5 7021-8 ####[facility]ORATORYCLIA [id number] [address] [place] Nucleated RBC/100 WBC (Bld) [Ratio] 0.0 /100 WBC Normal [facility] Comment on above: Order Comment: Speci men Type: BLOOD SPECIMENOrdering Facility: [facility] Address: [address] [place] [address] Performed By: #### 5 7021-8 ####[facility]ORATORYCLIA [id number] [address] Platelet mean volume (Bld) [Entitic vol] 10.9 fL Normal 9.0-12.7 [facility] Comment on above: Order Comment: Speci men Type: BLOOD SPECIMENOrdering Facility: [facility] Address: [address] [place] [address] Performed By: #### 5 7021-8 ####[facility]ORATORYCLIA [id number] [address] [place] Platelets (Bld) [#/Vol] 287 10*3/uL Normal 150-400 [facility] Comment on above: Order Comment: Speci men Type: BLOOD SPECIMENOrdering Facility: [facility] Address: [address] [place] [address] Performed By: #### 5 7021-8 ####[facility]ORATORYCLIA [id number] [address] [place] RBC (Bld) [#/Vol] 3.36 10*6/uL Low 4.20-6.00 [facility] Comment on above: Order Comment: Speci men Type: BLOOD SPECIMENOrdering Facility: [facility] Address: [address] [place] [address] Performed By: #### 5 7021-8 ####[facility]ORATORYCLIA [id number] [address] [facility] WBC (Bld) [#/Vol] 11.00 10*3/uL Normal 3.70-11.00 [facility] Comment on above: Order Comment: Speci men Type: BLOOD SPECIMENOrdering Facility: [facility] Address: [address] [place] [address] Performed By: #### 5 7021-8 ####[facility]ORATORYCLIA [id number] [address] [facility] CSF MANUAL DIFFon 07-30-2021 DIF TTL, CSF 100 cells counted Normal [facility] Comment on above: Order Comment: Speci men Type: CEREBROSPINAL FLUIDOrdering Facility: [facility] Address: [address] [place] [address] Performed By: #### L [id number], HGC1869, 92168-2 ####[facility] LABORATORYCLIA [id number] [address] [place] EOSIN%, CSF 0 % Normal [facility] Comment on above: Order Comment: Speci men Type: CEREBROSPINAL FLUIDOrdering Facility: [facility] Address: [address] [place] [address] Performed By: #### L [id number], ZMI4134, 48869-4 ####[facility]ATORYCLIA [id number] [address] [place] LYMPH%, CSF 75 % Normal 50-90 [facility] Comment on above: Order Comment: Speci men Type: CEREBROSPINAL FLUIDOrdering Facility: [facility] Address: [address] [place] [address] Performed By: #### L [id number], IPU7027, 08408-2 ####[facility]ORATORYCLIA [id number] [place] [address] [place] MACRO%, CSF 9 % High <1 [facility] Comment on above: Order Comment: Speci men Type: CEREBROSPINAL FLUIDOrdering Facility: [facility] Address: [address] [place] [address] Performed By: #### L IF8536, OFL2974, 33813-7 ####[facility]ORATORYCLIA [id number] [place] [address] [place] MONO%, CSF 10 % Normal 10-50 [facility] Comment on above: Order Comment: Speci men Type: CEREBROSPINAL FLUIDOrdering Facility: [facility] Address: [address] [place] [address] Performed By: #### L [id number], DRW6608, 26023-5 ####[facility]ATORYCLIA [id number] [address] [facility] OTHER CL%, CSF 4 % Normal [facility] Comment on above: Order Comment: Speci men Type: CEREBROSPINAL FLUIDOrdering Facility: [facility] Address: [address] [place] [address] Result Comment: Path review to follow. Performed By: #### L [id number], OVM1773, 91233-2 ####[facility]ORATORYCLIA [id number] [place] [address] [place] REAC LYMPH %, CSF 2 % Normal [facility] Comment on above: Order Comment: Speci men Type: CEREBROSPINAL FLUIDOrdering Facility: [facility] Address: [address] [place] [address] Performed By: #### L [id number], YCW0817, 60678-2 ####[facility]ORATORYCLIA [id number] [address] [facility] CSF PATHOLOGIST INTERP (LAB REFLEX ORDER-NO BILL)on 07-30-2021 CSF STAFF REVIEW Negative Normal [facility] Comment on above: Order Comment: Speci men Type: CEREBROSPINAL FLUIDOrdering Facility: [facility] Address: [address] [place] [address] Performed By: #### L [id number], QZB1124, 00103-9 ####[facility]ORATORYCLIA [id number] [address] Pathologist name Reviewed by Eloise rebolledo MD Normal [facility] Comment on above: Order Comment: Speci men Type: CEREBROSPINAL FLUIDOrdering Facility: [facility] Address: [address] [place] [address] Performed By: #### L [id number], LIN0291, 65385-2 ####[facility]ORATORYCLIA [id number] [address] [place] CT BRAIN WO IVCONon 07-31-19 CT BRAIN WO IVCON Normal [facility] Cell count panel (CSF)on Clarity (CSF) Clear Normal Clear [facility] Comment on above: Order Comment: Speci men Type: CEREBROSPINAL FLUIDOrdering Facility: [facility] Address: [address] [place] [address] Performed By: #### L [id number], TNI9954, 12681-7 ####[facility]ORATORYCLIA [id number] [address] Clarity (Unsp spec) Clear Normal Clear [facility] Comment on above: Order Comment: Speci men Type: CEREBROSPINAL FLUIDOrdering Facility: [facility] Address: [address] [place] [address] Performed By: #### L [id number], XIS9864, 26940-9 ####[facility]ORATORYCLIA [id number] [address] Color (CSF) Colorless Normal Colorless [facility] Comment on above: Order Comment: Speci men Type: CEREBROSPINAL FLUIDOrdering Facility: [facility] Address: [facility] [place] [address] Performed By: #### L [id number], CQD8115, 60532-6 ####[facility] [facility]ORATORYCLIA [id number] [place] [address] Color (Spun CSF) Colorless Normal Colorless [facility] Comment on above: Order Comment: Speci men Type: CEREBROSPINAL FLUIDOrdering Facility: [facility] Address: [address] [place] [address] Performed By: #### L QA0671, IJT6678, 85102-6 ####[facility]ORATORYCLIA [id number] [address] CSF TUBE [employer] Normal [facility] Comment on above: Order Comment: Speci men Type: CEREBROSPINAL FLUIDOrdering Facility: [facility] Address: [address] [place] [address] Performed By: #### L CK0055, YLD0925, 45452-6 ####[facility] LABORATORYCLIA [id number] [address] [place] RBC Manual cnt (CSF) [#/Vol] 9 cells/uL High 0-5 [facility] Comment on above: Order Comment: Speci men Type: CEREBROSPINAL FLUIDOrdering Facility: [facility] Address: [address] [place] [address] Performed By: #### L CJ0320, CKX0795, 05689-4 ####[facility]ORATORYCLIA [id number] [address] WBC Manual cnt (CSF) [#/Vol] 8 cells/uL High 0-5 [facility] Comment on above: Order Comment: Speci men Type: CEREBROSPINAL FLUIDOrdering Facility: [facility] Address: [address] [place] [address] Performed By: #### L [id number], ZAX5843, 53363-0 ####[facility]ORATORYCLIA [id number] [address] [place] Glucose CSF-mCncon 2 Glucose (CSF) [Mass/Vol] 65 mg/dL Normal 40-70 [facility] Comment on above: Order Comment: Speci men Type: CEREBROSPINAL FLUIDOrdering Facility: [facility] Address: [address] [place] [address] Result Comment: Lumb ar CSF glucose values of healthy patients are approximately 60% of the plasma values and must always be compared with a concurrently measured plasma value for adequate clinical interpretation.References: 1. Glucose HK (GLUC3) [package insert V 12.0 [place]ian]. [employer], [place], [place]. September 2015. 2. Michelle Moore, Loki HGarfield (2015). Chapter 7: Glucose and Lactate. F. Irina rose al.(eds.), Cerebrospinal Fluid in Clinical Neurology. [place]: [employer]. Performed By: #### 2 342-4, 2880-3 ####[facility]ORATORYCLIA [id number] [address] Magnesium [facility] 07-30 Magnesium [Mass/Vol] 2.5 mg/dL High 1.7-2.3 [facility] Comment on above: Order Comment: Speci men Type: BLOOD SPECIMENOrdering Facility: [facility] Address: [address] [place] [address] Performed By: #### 2 777-1, 68728-8, 52124-6 ####[facility]ORATORYCLIA [id number] [address] NURSING PROGon 07-30-2021 NURSING PROG Normal [facility] Phosphate SerPl-ncon 07-30 Phosphate [Mass/Vol] 2.4 mg/dL Low 2.7-4.8 [facility] Comment on above: Order Comment: Speci men Type: BLOOD SPECIMENOrdering Facility: [facility] Address: [address] [place] [address] Performed By: #### 2 777-1, 63487-6, 84218-2 ####[facility] LABORATORYCLIA [id number] [address] [facility] Prot CSF-mCncon 07-30-2021 Protein (CSF) [Mass/Vol] 50 mg/dL High 15-45 [facility] Comment on above: Order Comment: Speci men Type: CEREBROSPINAL FLUIDOrdering Facility: [facility] Address: [address] [place] [address] Performed By: #### 2 342-4, 2880-3 ####[facility]ORATORYCLIA [id number] [address] [place] aPTT PPPon 07-30-2021 aPTT Coag (PPP) [Time] 64.1 s High 23.0-32.4 [facility] Comment on above: Order Comment: Speci men Type: BLOOD SPECIMENOrdering Facility: [facility] Address: [address] [place] [address] Performed By: #### 1 4979-9 ####[facility]ORATORYCLIA [id number] [address] [place] Bacteria CSF Culton 07-30-19 22 Bacteria identified Cx Nom (CSF) CULTURE, CSF: No growth 14 days GRAM STAIN: No cells or organisms seen Gram stain performed on cytospun specimen. Gram stain confirmed by microbiology Normal [facility] Comment on above: Performed By: #### 6 06-4 ####[facility]ORATORYCLIA [id number] [address] [place] CASE MANAGEMon 07-29-2021 CASE MANAGEM Normal [facility] CBC W Auto Differential pane l (Bld)on 07-29-2021 Basophils (Bld) [#/Vol] 0.03 10*3/uL Normal <0.11 [facility] Comment on above: Order Comment: Speci men Type: BLOOD SPECIMENOrdering Facility: [facility] Address: [address] [place] [address] Performed By: #### 5 7021-8 ####[facility]ORATORYCLIA [id number] [address] [place] Basophils/100 WBC (Bld) 0.3 % Normal [facility] Comment on above: Order Comment: Speci men Type: BLOOD SPECIMENOrdering Facility: [facility] Address: [address] [place] [address] Performed By: #### 5 7021-8 ####[facility] LABORATORYCLIA [id number] [address] Differential cell count method Nom (Bld) Auto Normal [facility] Comment on above: Order Comment: Speci men Type: BLOOD SPECIMENOrdering Facility: [facility] Address: [address] [place] [address] Performed By: #### 5 7021-8 ####[facility] LABORATORYCLIA [id number] [address] Eosinophils (Bld) [#/Vol] 0.40 10*3/uL Normal <0.46 [facility] Comment on above: Order Comment: Speci men Type: BLOOD SPECIMENOrdering Facility: [facility] Address: [address] [place] [address] Performed By: #### 5 7021-8 ####[facility] LABORATORYCLIA [id number] [address] Eosinophils/100 WBC (Bld) 3.9 % Normal [facility] Comment on above: Order Comment: Speci men Type: BLOOD SPECIMENOrdering Facility: [facility] Address: [address] [place] [address] Performed By: #### 5 7021-8 ####[facility] LABORATORYCLIA [id number] [address] Erythrocyte distribution width (RBC) [Ratio] 17.1 % High 11.5-15.0 [facility] Comment on above: Order Comment: Speci men Type: BLOOD SPECIMENOrdering Facility: [facility] Address: [address] [place] [address] Performed By: #### 5 7021-8 ####[facility] LABORATORYCLIA [id number] [address] Hematocrit (Bld) [Volume fraction] 32.0 % Low 39.0-51.0 [facility] Comment on above: Order Comment: Speci men Type: BLOOD SPECIMENOrdering Facility: [facility] Address: [address] [place] [address] Performed By: #### 5 7021-8 ####[facility] LABORATORYCLIA [id number] [address] Hemoglobin (Bld) [Mass/Vol] 9.7 g/dL Low 13.0-17.0 [facility] Comment on above: Order Comment: Speci men Type: BLOOD SPECIMENOrdering Facility: [facility] Address: [address] [place] [address] Performed By: #### 5 7021-8 ####[facility]ORATORYCLIA [id number] [address] IMMATURE GRAN % 0.6 % Normal [facility] Comment on above: Order Comment: Speci men Type: BLOOD SPECIMENOrdering Facility: [facility] Address: [address] [place] [address] Performed By: #### 5 7021-8 ####[facility] LABORATORYCLIA [id number] [address] IMMATURE GRAN ABS 0.06 k/uL Normal <0.10 [facility] Comment on above: Order Comment: Speci men Type: BLOOD SPECIMENOrdering Facility: [facility] Address: [address] [place] [address] Performed By: #### 5 7021-8 ####[facility] LABORATORYCLIA [id number] [address] [place] Lymphocytes (Bld) [#/Vol] 1.96 10*3/uL Normal 1.00-4.00 [facility] Comment on above: Order Comment: Speci men Type: BLOOD SPECIMENOrdering Facility: [facility] Address: [address] [place] [address] Performed By: #### 5 7021-8 ####[facility] LABORATORYCLIA [id number] [address] Lymphocytes/100 WBC (Bld) 19.0 % Normal [facility] Comment on above: Order Comment: Speci men Type: BLOOD SPECIMENOrdering Facility: [facility] Address: [address] [place] [address] Performed By: #### 5 7021-8 ####[facility] LABORATORYCLIA [id number] [address] MCH (RBC) [Entitic mass] 28.0 pg Normal 26.0-34.0 [facility] Comment on above: Order Comment: Speci men Type: BLOOD SPECIMENOrdering Facility: [facility] Address: [address] [place] [address] Performed By: #### 5 7021-8 ####[facility]ORATORYCLIA [id number] [address] MCHC (RBC) [Mass/Vol] 30.3 g/dL Low 30.5-36.0 [facility] Comment on above: Order Comment: Speci men Type: BLOOD SPECIMENOrdering Facility: [facility] Address: [address] [place] [address] Performed By: #### 5 7021-8 ####[facility] LABORATORYCLIA [id number] [address] MCV (RBC) [Entitic vol] 92.5 fL Normal 80.0-100.0 [facility] Comment on above: Order Comment: Speci men Type: BLOOD SPECIMENOrdering Facility: [facility] Address: [address] [place] [address] Performed By: #### 5 7021-8 ####[facility]ORATORYCLIA [id number] [address] Monocytes (Bld) [#/Vol] 0.53 10*3/uL Normal <0.87 [facility] Comment on above: Order Comment: Speci men Type: BLOOD SPECIMENOrdering Facility: [facility] Address: [address] [place] [address] Performed By: #### 5 7021-8 ####[facility] LABORATORYCLIA [id number] [place] [address] [place] Monocytes/100 WBC (Bld) 5.2 % Normal [facility] Comment on above: Order Comment: Speci men Type: BLOOD SPECIMENOrdering Facility: [facility] Address: [address] [place] [address] Performed By: #### 5 7021-8 ####[facility] LABORATORYCLIA [id number] [place] [address] [place] Neutrophils (Bld) [#/Vol] 7.31 10*3/uL Normal 1.45-7.50 [facility] Comment on above: Order Comment: Speci men Type: BLOOD SPECIMENOrdering Facility: [facility] Address: [address] [place] [address] Performed By: #### 5 7021-8 ####[facility]ORATORYCLIA [id number] [address] [place] Neutrophils/100 WBC (Bld) 71.0 % Normal [facility] Comment on above: Order Comment: Speci men Type: BLOOD SPECIMENOrdering Facility: [facility] Address: [address] [place] [address] Performed By: #### 5 7021-8 ####[facility]ORATORYCLIA [id number] [place] [address] [place] Nucleated RBC (Bld) [#/Vol] 10*3/uL Normal <0.01 [facility] Comment on above: Order Comment: Speci men Type: BLOOD SPECIMENOrdering Facility: [facility] Address: [address] [place] [address] Performed By: #### 5 7021-8 ####[facility]ORATORYCLIA [id number] [address] [place] Nucleated RBC/100 WBC (Bld) [Ratio] 0.0 /100 WBC Normal [facility] Comment on above: Order Comment: Speci men Type: BLOOD SPECIMENOrdering Facility: [facility] Address: [address] [place], [place] [id number] Performed By: #### 5 7021-8 ####[facility]ORATORYCLIA [id number] [address] Platelet mean volume (Bld) [Entitic vol] 11.2 fL Normal 9.0-12.7 [facility] Comment on above: Order Comment: Speci men Type: BLOOD SPECIMENOrdering Facility: [facility] Address: [address] [place], [place] [address] Performed By: #### 5 7021-8 ####[facility]ORATORYCLIA [id number] [address] [place] Platelets (Bld) [#/Vol] 276 10*3/uL Normal 150-400 [facility] Comment on above: Order Comment: Speci men Type: BLOOD SPECIMENOrdering Facility: [facility] Address: [address] [place] [address] Performed By: #### 5 7021-8 ####[facility]ORATORYCLIA [id number] [address] [place] [facility] RBC (Bld) [#/Vol] 3.46 10*6/uL Low 4.20-6.00 [facility] Comment on above: Order Comment: Speci men Type: BLOOD SPECIMENOrdering Facility: [facility] Address: [address] [place] [address] Performed By: #### 5 7021-8 ####[facility]ORATORYCLIA [id number] [address] [place] WBC (Bld) [#/Vol] 10.29 10*3/uL Normal 3.70-11.00 [facility] Comment on above: Order Comment: Speci men Type: BLOOD SPECIMENOrdering Facility: [facility] Address: [address] [place], [place] [address] Performed By: #### 5 7021-8 ####[facility]ORATORYCLIA [id number] [address] OF [facility] NURSING PROGon 07-29-2021 NURSING PROG Normal [facility] THERAPY NTon 07-29-2021 THERAPY NT Normal [facility] aPTT PPPon 07-29-2021 aPTT Coag (PPP) [Time] 59.2 s High 23.0-32.4 [facility] Comment on above: Order Comment: Speci men Type: BLOOD SPECIMENOrdering Facility: [facility] Address: [address] [place] [address] Performed By: #### 1 4979-9 ####[facility] LABORATORYCLIA [id number] [place] [address] [place] ALLIED HEALTHon 07-28-2021 ALLIED HEALTH Normal [facility] Basic metabolic 2000 panelon 07-28-2021 Anion gap [Moles/Vol] 7 mmol/L Low 9-18 [facility] Comment on above: Order Comment: Speci men Type: BLOOD SPECIMENOrdering Facility: [facility] Address: [address] [place] [address] Performed By: #### 1 4338-8, 06739-9, 2777-1, 52176-0 ####[facility] LABORATORYCLIA [id number] [place] [address] [place] Calcium [Mass/Vol] 9.0 mg/dL Normal 8.5-10.2 [facility] Comment on above: Order Comment: Speci men Type: BLOOD SPECIMENOrdering Facility: [facility] Address: [address] [place] [address] Performed By: #### 1 4338-8, 37875-7, 2777-1, 80646-7 ####[facility]ORATORYCLIA [id number] [place] [address] [place] Chloride [Moles/Vol] 94 mmol/L Low 97-105 [facility] Comment on above: Order Comment: Speci men Type: BLOOD SPECIMENOrdering Facility: [facility] Address: [address] [place] [address] Performed By: #### 1 4338-8, 13616-9, 277-1, 02683-2 ####[facility]UNSTERCLIA [id number] [place] [address] [place] CO2 [Moles/Vol] 31 mmol/L High 22-30 [facility] Comment on above: Order Comment: Speci men Type: BLOOD SPECIMENOrdering Facility: [facility] Address: [address] [place] [address] Performed By: #### 1 4338-8, 32660-8, 2776-05, 93400-2 ####[facility]STERCLIA [id number] [place] [address] [place] Creatinine [Mass/Vol] 0.75 mg/dL Normal 0.73-1.22 [facility] Comment on above: Order Comment: Speci men Type: BLOOD SPECIMENOrdering Facility: [facility] Address: [address] [place] [address] Performed By: #### 1 4338-8, 94612-8, 2776-05, 24248-5 ####[facility]OSPITALIA [id number] [address] [place] ESTIMATED GLOMERULAR FILTRATION RATE 98 mL/min/1.73m??? Normal >=60 [facility] Comment on above: Order Comment: Speci men Type: BLOOD SPECIMENOrdering Facility: [facility] Address: [address] [place] [address] Result Comment: Luzmaria mated Glomerular Filtration Rate [...] actual GFR. Performed By: #### 1 4338-8, 60036-0, 277-, 99822-2 ####[facility] HOSPITALIA [id number] [place] [address] [place] Glucose [Mass/Vol] 122 mg/dL High 74-99 [facility] Comment on above: Order Comment: Speccaar francia Type: BLOOD SPECIMENOrdering Facility: [facility] Address: [address] [place], [place] [phone] Result Comment: The [place] [employer] (ADA) [...] 2016.39(Suppl 1). Performed By: #### 1 4338-8, 69299-2, 2777-1, 38221-5 ####[facility] LABORATORYCLIA [id number] [place] [address] [place] Potassium [Moles/Vol] 4.0 mmol/L Normal 3.7-5.1 [facility] Comment on above: Order Comment: Shira francia Type: BLOOD SPECIMENOrdering Facility: [facility] Address: [address] [place] [address] Performed By: #### 1 4338-8, 97330-0, 2777-1, 80469-8 ####[facility]ORATORYCLIA [id number] [place] [address] [place] Sodium [Moles/Vol] 132 mmol/L Low 136-144 [facility] Comment on above: Order Comment: Shira francia Type: BLOOD SPECIMENOrdering Facility: [facility] Address: [address] [place] [phone] Performed By: #### 1 4338-8, 18841-1, 7-1, 22072-8 ####[facility]ORATORYCLIA [id number] [place] [address] [place] Urea nitrogen [Mass/Vol] 34 mg/dL High 01-28 [facility] Comment on above: Order Comment: Speci men Type: BLOOD SPECIMENOrdering Facility: [facility] Address: [address] [place] [address] Performed By: #### 1 4338-8, 22933-3, 2777-1, 51329-3 ####[facility] LABORATORYCLIA [id number] [address] [place] [facility] CBC W Auto Differential pane l (Bld)on 07-28-2021 Basophils (Bld) [#/Vol] 0.04 10*3/uL Normal <0.11 [facility] Comment on above: Order Comment: Speci men Type: BLOOD SPECIMENOrdering Facility: [facility] Address: [address] [place] [address] Performed By: #### 5 7021-8 ####[facility]ORATORYCLIA [id number] [address] [place] Basophils/100 WBC (Bld) 0.5 % Normal [facility] Comment on above: Order Comment: Speci men Type: BLOOD SPECIMENOrdering Facility: [facility] Address: [address] [place] [address] Performed By: #### 5 7021-8 ####[facility]ORATORYCLIA [id number] [address] [place] Differential cell count method Nom (Bld) Auto Normal [facility] Comment on above: Order Comment: Speci men Type: BLOOD SPECIMENOrdering Facility: [facility] Address: [address] [place] [address] Performed By: #### 5 7021-8 ####[facility] LABORATORYCLIA [id number] [place] [address] [place] Eosinophils (Bld) [#/Vol] 0.30 10*3/uL Normal <0.46 [facility] Comment on above: Order Comment: Speci men Type: BLOOD SPECIMENOrdering Facility: [facility] Address: [address] [place] [address] Performed By: #### 5 7021-8 ####[facility] LABORATORYCLIA [id number] [address] STATES [facility] Eosinophils/100 WBC (Bld) 3.4 % Normal [facility] Comment on above: Order Comment: Speci men Type: BLOOD SPECIMENOrdering Facility: [facility] Address: [address] [place] [address] Performed By: #### 5 7021-8 ####[facility]ORATORYCLIA [id number] [address] Erythrocyte distribution width (RBC) [Ratio] 16.9 % High 11.5-15.0 [facility] Comment on above: Order Comment: Speci men Type: BLOOD SPECIMENOrdering Facility: [facility] Address: [address] [place] [address] Performed By: #### 5 7021-8 ####[facility] LABORATORYCLIA [id number] [address] Hematocrit (Bld) [Volume fraction] 30.3 % Low 39.0-51.0 [facility] Comment on above: Order Comment: Speci men Type: BLOOD SPECIMENOrdering Facility: [facility] Address: [address] [place] [address] Performed By: #### 5 7021-8 ####[facility]ORATORYCLIA [id number] [address] [place] Hemoglobin (Bld) [Mass/Vol] 9.2 g/dL Low 13.0-17.0 [facility] Comment on above: Order Comment: Speci men Type: BLOOD SPECIMENOrdering Facility: [facility] Address: [address] [place] [address] Performed By: #### 5 7021-8 ####[facility]ORATORYCLIA [id number] [address] [place] IMMATURE GRAN % 0.6 % Normal [facility] Comment on above: Order Comment: Speci men Type: BLOOD SPECIMENOrdering Facility: [facility] Address: [address] [place] [address] Performed By: #### 5 7021-8 ####[facility]ORATORYCLIA [id number] [address] IMMATURE GRAN ABS 0.05 k/uL Normal <0.10 [facility] Comment on above: Order Comment: Speci men Type: BLOOD SPECIMENOrdering Facility: [facility] Address: [address] [place] [address] Performed By: #### 5 7021-8 ####[facility]ORATORYCLIA [id number] [address] Lymphocytes (Bld) [#/Vol] 1.68 10*3/uL Normal 1.00-4.00 [facility] Comment on above: Order Comment: Speci men Type: BLOOD SPECIMENOrdering Facility: [facility] Address: [address] [place] [address] Performed By: #### 5 7021-8 ####[facility]ORATORYCLIA [id number] [address] Lymphocytes/100 WBC (Bld) 19.2 % Normal [facility] Comment on above: Order Comment: Speci men Type: BLOOD SPECIMENOrdering Facility: [facility] Address: [address] [place] [address] Performed By: #### 5 7021-8 ####[facility] LABORATORYCLIA [id number] [address] MCH (RBC) [Entitic mass] 28.4 pg Normal 26.0-34.0 [facility] Comment on above: Order Comment: Speci men Type: BLOOD SPECIMENOrdering Facility: [facility] Address: [address] [place] [address] Performed By: #### 5 7021-8 ####[facility]ORATORYCLIA [id number] [address] MCHC (RBC) [Mass/Vol] 30.4 g/dL Low 30.5-36.0 [facility] Comment on above: Order Comment: Speci men Type: BLOOD SPECIMENOrdering Facility: [facility] Address: [address] [place] [address] Performed By: #### 5 7021-8 ####[facility] LABORATORYCLIA [id number] [address] [place] MCV (RBC) [Entitic vol] 93.5 fL Normal 80.0-100.0 [facility] Comment on above: Order Comment: Speci men Type: BLOOD SPECIMENOrdering Facility: [facility] Address: [address] [place] [address] Performed By: #### 5 7021-8 ####[facility] LABORATORYCLIA [id number] [address] [place] Monocytes (Bld) [#/Vol] 0.58 10*3/uL Normal <0.87 [facility] Comment on above: Order Comment: Speci men Type: BLOOD SPECIMENOrdering Facility: [facility] Address: [address] [place] [address] Performed By: #### 5 7021-8 ####[facility]ORATORYCLIA [id number] [address] [place] Monocytes/100 WBC (Bld) 6.6 % Normal [facility] Comment on above: Order Comment: Speci men Type: BLOOD SPECIMENOrdering Facility: [facility] Address: [address] [place] [address] Performed By: #### 5 7021-8 ####[facility]ORATORYCLIA [id number] [address] [place] Neutrophils (Bld) [#/Vol] 6.11 10*3/uL Normal 1.45-7.50 [facility] Comment on above: Order Comment: Speci men Type: BLOOD SPECIMENOrdering Facility: [facility] Address: [address] [place] [address] Performed By: #### 5 7021-8 ####[facility]ORATORYCLIA [id number] [address] [place] Neutrophils/100 WBC (Bld) 69.7 % Normal [facility] Comment on above: Order Comment: Speci men Type: BLOOD SPECIMENOrdering Facility: [facility] Address: [address] [place] [address] Performed By: #### 5 7021-8 ####[facility]ORATORYCLIA [id number] [address] [place] Nucleated RBC (Bld) [#/Vol] 10*3/uL Normal <0.01 [facility] Comment on above: Order Comment: Speci men Type: BLOOD SPECIMENOrdering Facility: [facility] Address: [address] [place] [address] Performed By: #### 5 7021-8 ####[facility]ORATORYCLIA [id number] [address] Nucleated RBC/100 WBC (Bld) [Ratio] 0.0 /100 WBC Normal [facility] Comment on above: Order Comment: Speci men Type: BLOOD SPECIMENOrdering Facility: [facility] Address: [address] [place] [address] Performed By: #### 5 7021-8 ####[facility]ORATORYCLIA [id number] [address] [place] Platelet mean volume (Bld) [Entitic vol] 11.3 fL Normal 9.0-12.7 [facility] Comment on above: Order Comment: Speci men Type: BLOOD SPECIMENOrdering Facility: [facility] Address: [address] [place] [address] Performed By: #### 5 7021-8 ####[facility]ORATORYCLIA [id number] [address] [place] Platelets (Bld) [#/Vol] 238 10*3/uL Normal 150-400 [facility] Comment on above: Order Comment: Speci men Type: BLOOD SPECIMENOrdering Facility: [facility] Address: [address] [place] [address] Performed By: #### 5 7021-8 ####[facility]ORATORYCLIA [id number] [address] RBC (Bld) [#/Vol] 3.24 10*6/uL Low 4.20-6.00 [facility] Comment on above: Order Comment: Speci men Type: BLOOD SPECIMENOrdering Facility: [facility] Address: [address] [place] [address] Performed By: #### 5 7021-8 ####[facility]ORATORYCLIA [id number] [address] WBC (Bld) [#/Vol] 8.76 10*3/uL Normal 3.70-11.00 [facility] Comment on above: Order Comment: Speci men Type: BLOOD SPECIMENOrdering Facility: [facility] Address: [address] [place] [address] Performed By: #### 5 7021-8 ####[facility]ORATORYCLIA [id number] [address] MRI BRAIN WO/W IVCONon 07-28 MRI BRAIN WO/W IVCON Normal [facility]28 Magnesium [Mass/Vol] 2.5 mg/dL High 1.7-2.3 [facility] Comment on above: Order Comment: Speci men Type: BLOOD SPECIMENOrdering Facility: [facility] Address: [address] [place] [address] Performed By: #### 1 4338-8, 63635-5, 2777-1, 66228-2 ####[facility]ATORYCLIA [id number] [address] NURSING PROGon 07-28-2021 NURSING PROG Normal [facility] NURSING PROG Normal [facility] Phosphate SerPl-mCncon 03-24 -2022 Phosphate [Mass/Vol] 2.8 mg/dL Normal 2.7-4.8 [facility] Comment on above: Order Comment: Speci men Type: BLOOD SPECIMENOrdering Facility: [facility] Address: [address] [place] [address] Performed By: #### 1 4338-8, 54972-4, 2777-1, 30275-9 ####[facility]CLIA [id number] [address] [place] [facility] Prealbumin [Mass/Vol]on 07-06 Prealbumin Nephelometry [Mass/Vol] 25 mg/dL Normal [facility] Comment on above: Order Comment: Speci men Type: BLOOD SPECIMENOrdering Facility: [facility] Address: [address] [place] [address] Performed By: #### 1 4338-8, 33020-1, 2777-1, 20004-6 ####[facility] [id number] [address] [place] aPTT PPPon 07-28-2021 aPTT Coag (PPP) [Time] 53.0 s High 23.0-32.4 [facility] Comment on above: Order Comment: Speci men Type: BLOOD SPECIMENOrdering Facility: [facility] Address: [address] [place] [address] Performed By: #### 1 4979-9 ####[facility] [id number] [place] [address] [place] aPTT Coag (PPP) [Time] 57.2 s High 23.0-32.4 [facility] Comment on above: Order Comment: Speci men Type: BLOOD SPECIMENOrdering Facility: [facility] Address: [address] [place] [address] Performed By: #### 1 4979-9 ####[facility]ORYCLIA [id number] [place] [address] [place] Bacteria CSF Culton 07-28-19 22 Bacteria identified Cx Nom (CSF) CULTURE, CSF: No growth 14 days GRAM STAIN: No organisms seen Rare Polymorphonuclear leukocytes Rare Red Blood Cells Gram stain performed on cytospun specimen. Normal [facility] Comment on above: Performed By: #### 6 06-4 ####[facility] LABORATORYCLIA [id number] [address] [place] Bacteria Spec Resp Culton Bacteria identified Respiratory culture Nom (Unsp spec) CULTURE, RESPIRATORY: Rare Normal respiratory chris present GRAM STAIN: No organisms seen Rare Polymorphonuclear leukocytes Rare Epithelial cells Normal [facility] Comment on above: Performed By: #### 3 2355-0 ####[facility] LABORATORYCLIA [id number] [address] [place] CASE MANAGEMon 07-27-2021 CASE MANAGEM Normal [facility] CBC W Auto Differential pane l (Bld)on 07-27-2021 Basophils (Bld) [#/Vol] 0.04 10*3/uL Normal <0.11 [facility] Comment on above: Order Comment: Speci men Type: BLOOD SPECIMENOrdering Facility: [facility] Address: [address] [place] [address] Performed By: #### 5 7021-8 ####[facility] LABORATORYCLIA [id number] [address] [place] Basophils/100 WBC (Bld) 0.4 % Normal [facility] Comment on above: Order Comment: Speci men Type: BLOOD SPECIMENOrdering Facility: [facility] Address: [address] [place] [address] Performed By: #### 5 7021-8 ####[facility] LABORATORYCLIA [id number] [address] [place] Differential cell count method Nom (Bld) Auto Normal [facility] Comment on above: Order Comment: Speci men Type: BLOOD SPECIMENOrdering Facility: [facility] Address: [address] [address] Performed By: #### 5 7021-8 ####[facility] LABORATORYCLIA [id number] [address] [place] Eosinophils (Bld) [#/Vol] 0.50 10*3/uL High <0.46 [facility] Comment on above: Order Comment: Speci men Type: BLOOD SPECIMENOrdering Facility: [facility] Address: [address] [place] [address] Performed By: #### 5 7021-8 ####[facility] LABORATORYCLIA [id number] [address] [place] Eosinophils/100 WBC (Bld) 5.2 % Normal [facility] Comment on above: Order Comment: Speci men Type: BLOOD SPECIMENOrdering Facility: [facility] Address: [address] [place] [address] Performed By: #### 5 7021-8 ####[facility] LABORATORYCLIA [id number] [address] Erythrocyte distribution width (RBC) [Ratio] 16.8 % High 11.5-15.0 [facility] Comment on above: Order Comment: Speci men Type: BLOOD SPECIMENOrdering Facility: [facility] Address: [address] [place] [address] Performed By: #### 5 7021-8 ####[facility] LABORATORYCLIA [id number] [address] [place] Hematocrit (Bld) [Volume fraction] 29.8 % Low 39.0-51.0 [facility] Comment on above: Order Comment: Speci men Type: BLOOD SPECIMENOrdering Facility: [facility] Address: [address] [place] [address] Performed By: #### 5 7021-8 ####[facility] LABORATORYCLIA [id number] [address] [place] Hemoglobin (Bld) [Mass/Vol] 9.0 g/dL Low 13.0-17.0 [facility] Comment on above: Order Comment: Speci men Type: BLOOD SPECIMENOrdering Facility: [facility] Address: [address] [place] [address] Performed By: #### 5 7021-8 ####[facility] LABORATORYCLIA [id number] [address] IMMATURE GRAN % 0.6 % Normal [facility] Comment on above: Order Comment: Speci men Type: BLOOD SPECIMENOrdering Facility: [facility] Address: [address] [place] [address] Performed By: #### 5 7021-8 ####[facility] LABORATORYCLIA [id number] [address] IMMATURE GRAN ABS 0.06 k/uL Normal <0.10 [facility] Comment on above: Order Comment: Speci men Type: BLOOD SPECIMENOrdering Facility: [facility] Address: [address] [place] [address] Performed By: #### 5 7021-8 ####[facility]ORATORYCLIA [id number] [address] Lymphocytes (Bld) [#/Vol] 1.73 10*3/uL Normal 1.00-4.00 [facility] Comment on above: Order Comment: Speci men Type: BLOOD SPECIMENOrdering Facility: [facility] Address: [address] [place] [address] Performed By: #### 5 7021-8 ####[facility] LABORATORYCLIA [id number] [address] Lymphocytes/100 WBC (Bld) 17.9 % Normal [facility] Comment on above: Order Comment: Speci men Type: BLOOD SPECIMENOrdering Facility: [facility] Address: [address] [place] [address] Performed By: #### 5 7021-8 ####[facility] LABORATORYCLIA [id number] [address] [place] MCH (RBC) [Entitic mass] 28.1 pg Normal 26.0-34.0 [facility] Comment on above: Order Comment: Speci men Type: BLOOD SPECIMENOrdering Facility: [facility] Address: [address] [place] [address] Performed By: #### 5 7021-8 ####[facility] LABORATORYCLIA [id number] [address] MCHC (RBC) [Mass/Vol] 30.2 g/dL Low 30.5-36.0 [facility] Comment on above: Order Comment: Speci men Type: BLOOD SPECIMENOrdering Facility: [facility] Address: [address] [place] [address] Performed By: #### 5 7021-8 ####[facility] LABORATORYCLIA [id number] [address] MCV (RBC) [Entitic vol] 93.1 fL Normal 80.0-100.0 [facility] Comment on above: Order Comment: Speci men Type: BLOOD SPECIMENOrdering Facility: [facility] Address: [address] [place] [address] Performed By: #### 5 7021-8 ####[facility] LABORATORYCLIA [id number] [address] Monocytes (Bld) [#/Vol] 0.59 10*3/uL Normal <0.87 [facility] Comment on above: Order Comment: Speci men Type: BLOOD SPECIMENOrdering Facility: [facility] Address: [address] [place] [address] Performed By: #### 5 7021-8 ####[facility] LABORATORYCLIA [id number] [address] Monocytes/100 WBC (Bld) 6.1 % Normal [facility] Comment on above: Order Comment: Speci men Type: BLOOD SPECIMENOrdering Facility: [facility] Address: [address] [place] [address] Performed By: #### 5 7021-8 ####[facility] LABORATORYCLIA [id number] [place] [address] [place] Neutrophils (Bld) [#/Vol] 6.75 10*3/uL Normal 1.45-7.50 [facility] Comment on above: Order Comment: Speci men Type: BLOOD SPECIMENOrdering Facility: [facility] Address: [address] [place] [address] Performed By: #### 5 7021-8 ####[facility] LABORATORYCLIA [id number] [address] [place] Neutrophils/100 WBC (Bld) 69.8 % Normal [facility] Comment on above: Order Comment: Speci men Type: BLOOD SPECIMENOrdering Facility: [facility] Address: [address] [place] [address] Performed By: #### 5 7021-8 ####[facility] LABORATORYCLIA [id number] [address] [place] Nucleated RBC (Bld) [#/Vol] 10*3/uL Normal <0.01 [facility] Comment on above: Order Comment: Speci men Type: BLOOD SPECIMENOrdering Facility: [facility] Address: [address] [place] [address] Performed By: #### 5 7021-8 ####[facility] LABORATORYCLIA [id number] [address] [place] Nucleated RBC/100 WBC (Bld) [Ratio] 0.0 /100 WBC Normal [facility] Comment on above: Order Comment: Speci men Type: BLOOD SPECIMENOrdering Facility: [facility] Address: [address] [place] [address] Performed By: #### 5 7021-8 ####[facility] LABORATORYCLIA [id number] [address] [place] Platelet mean volume (Bld) [Entitic vol] 11.3 fL Normal 9.0-12.7 [facility] Comment on above: Order Comment: Speci men Type: BLOOD SPECIMENOrdering Facility: [facility] Address: [address] [place] [address] Performed By: #### 5 7021-8 ####[facility] LABORATORYCLIA [id number] [address] STATES OF [facility] Platelets (Bld) [#/Vol] 227 10*3/uL Normal 150-400 [facility] Comment on above: Order Comment: Speci men Type: BLOOD SPECIMENOrdering Facility: [facility] Address: [address] [place] [address] Performed By: #### 5 7021-8 ####[facility] LABORATORYCLIA [id number] [place] [address] [place] RBC (Bld) [#/Vol] 3.20 10*6/uL Low 4.20-6.00 [facility] Comment on above: Order Comment: Speci men Type: BLOOD SPECIMENOrdering Facility: [facility] Address: [address] [place] [address] Performed By: #### 5 7021-8 ####[facility] LABORATORYCLIA [id number] [address] OF [facility] WBC (Bld) [#/Vol] 9.67 10*3/uL Normal 3.70-11.00 [facility] Comment on above: Order Comment: Speci men Type: BLOOD SPECIMENOrdering Facility: [facility] Address: [address] [place] [address] Performed By: #### 5 7021-8 ####[facility] LABORATORYCLIA [id number] [address] OF [facility] CONSULT PROGon 07-27-2021 CONSULT PROG Normal [facility] CSF MANUAL DIFFon 07-27-2021 DIF TTL, CSF 100 cells counted Normal [facility] Comment on above: Order Comment: Speci men Type: CEREBROSPINAL FLUIDOrdering Facility: [facility] Address: [address] [place] [address] Performed By: #### L BV2786, 13816-9, NLP0963 ####[facility]ORATORYCLIA [id number] [address] [place] LYMPH%, CSF 75 % Normal 50-90 [facility] Comment on above: Order Comment: Speci men Type: CEREBROSPINAL FLUIDOrdering Facility: [facility] Address: [address] [place] [address] Performed By: #### L XC9958, 88699-8, [id number] ####[facility]ORATORYCLIA [id number] [place] [address] [place] MONO%, CSF 22 % Normal 10-50 [facility] Comment on above: Order Comment: Speci men Type: CEREBROSPINAL FLUIDOrdering Facility: [facility] Address: [address] [place] [address] Performed By: #### L CP5675, 07140-8, MMI9932 ####[facility]ATORYCLIA [id number] [address] [place] NEUT%, CSF 2 % Normal 0-3 [facility] Comment on above: Order Comment: Speci men Type: CEREBROSPINAL FLUIDOrdering Facility: [facility] Address: [address] [place] [address] Performed By: #### L EK0120, 05679-2, MHP1308 ####[facility]ATORYCLIA [id number] [address] [place] OTHER CL%, CSF 1 % Normal [facility] Comment on above: Order Comment: Speci men Type: CEREBROSPINAL FLUIDOrdering Facility: [facility] Address: [address] [place] [address] Result Comment: Path ologist review of microscopy results to follow Performed By: #### L ZM8450, 47521-9, [id number] ####[facility]ATORYCLIA [id number] [address] OF [facility] CSF PATHOLOGIST INTERP (LAB REFLEX ORDER-NO BILL)on 07-27-2021 CSF STAFF REVIEW Negative Normal [facility] Comment on above: Order Comment: Speci men Type: CEREBROSPINAL FLUIDOrdering Facility: [facility] Address: [address] [place], [place] [address] Performed By: #### L YE1895, 83132-8, KIE6737 ####[facility]ORATORYCLIA [id number] [address] Pathologist name Reviewed by Amador Stevens MD Normal [facility] Comment on above: Order Comment: Speci men Type: CEREBROSPINAL FLUIDOrdering Facility: [facility] Address: [address] [place] [address] Performed By: #### L ZI5954, 73399-9, [id number] ####[facility]ORATORYCLIA [id number] [address] Cell count panel (CSF)on Clarity (CSF) Clear Normal Clear [facility] Comment on above: Order Comment: Speci men Type: CEREBROSPINAL FLUIDOrdering Facility: [facility] Address: [address] [place] [address] Performed By: #### L KK9186, 15270-4, JKV3897 ####[facility]ATORYCLIA [id number] [address] Clarity (Unsp spec) Not Indicated Normal Clear [facility] Comment on above: Order Comment: Speci men Type: CEREBROSPINAL FLUIDOrdering Facility: [facility] Address: [address] [place] [address] Performed By: #### L GB0486, 92126-5, RXB7742 ####[facility]ORATORYCLIA [id number] [address] Color (CSF) Colorless Normal Colorless [facility] Comment on above: Order Comment: Speci men Type: CEREBROSPINAL FLUIDOrdering Facility: [facility] Address: [address] [place] [address] Performed By: #### L PL0085, 38778-4, JEP4505 ####[facility]ORATORYCLIA [id number] [address] Color (Spun CSF) Not Indicated Normal Colorless [facility] Comment on above: Order Comment: Speci men Type: CEREBROSPINAL FLUIDOrdering Facility: [facility] Address: [address] [place] [address] Performed By: #### L YX0201, 82690-2, AAX5985 ####[facility] LABORATORYCLIA [id number] [address] OF [facility] CSF TUBE NUMBER [employer] Normal [facility] Comment on above: Order Comment: Speci men Type: CEREBROSPINAL FLUIDOrdering Facility: [facility] Address: [address] [place] [address] Performed By: #### L FS6456, 85046-0, WMV1089 ####[facility] LABORATORYCLIA [id number] [address] STATES OF [facility] RBC Manual cnt (CSF) [#/Vol] 39 cells/uL High 0-5 [facility] Comment on above: Order Comment: Speci men Type: CEREBROSPINAL FLUIDOrdering Facility: [facility] Address: [address] [place] [address] Performed By: #### L UT8510, 56791-1, DEF2695 ####[facility] LABORATORYCLIA [id number] [address] STATES [facility] WBC Manual cnt (CSF) [#/Vol] 14 cells/uL High 0-5 [facility] Comment on above: Order Comment: Speci men Type: CEREBROSPINAL FLUIDOrdering Facility: [facility] Address: [address] [place] [address] Performed By: #### L CP2640, 50292-0, RWC0854 ####[facility] LABORATORYCLIA [id number] [place] [address] [place] Glucose CSF-mCncon 2 Glucose (CSF) [Mass/Vol] 64 mg/dL Normal 40-70 [facility] Comment on above: Order Comment: Speci men Type: CEREBROSPINAL FLUIDOrdering Facility: [facility] Address: [address] [place] [address] Result Comment: Lumb ar CSF glucose values of healthy patients are approximately 60% of the plasma values and must always be compared with a concurrently measured plasma value for adequate clinical interpretation.References: 1. Glucose HK (GLUC3) [package insert V 12.0 Gambian]. [employer], [place], [place]. September 2015. 2. Michelle Moore, Michelle Manjarrez (2015). Chapter 7: Glucose and Lactate. F. Irina rose al.(eds.), Cerebrospinal Fluid in Clinical Neurology. [place]: [employer]. Performed By: #### 2 342-4, 2880-3 ####[facility] LABORATORYCLIA [id number] [address] STATES OF [facility] NUTRITIONon 07-27-2021 NUTRITION Normal [facility] Prot CSF-mCncon 07-27-2021 Protein (CSF) [Mass/Vol] 58 mg/dL High 15-45 [facility] Comment on above: Order Comment: Speci men Type: CEREBROSPINAL FLUIDOrdering Facility: [facility] Address: [address] [place] [address] Performed By: #### 2 342-4, 2880-3 ####[facility]UNSTERCLIA [id number] [address] aPTT PPPon 07-27-2021 aPTT Coag (PPP) [Time] 68.4 s High 23.0-32.4 [facility] Comment on above: Order Comment: Speci men Type: BLOOD SPECIMENOrdering Facility: [facility] Address: [address] [place] [address] Performed By: #### 1 4979-9 ####[facility]ORATORYCLIA [id number] [address] aPTT Coag (PPP) [Time] 51.3 s High 23.0-32.4 [facility] Comment on above: Order Comment: Speci men Type: BLOOD SPECIMENOrdering Facility: [facility] Address: [address] [place] [address] Performed By: #### 1 4979-9 ####[facility] LABORATORYCLIA [id number] [address] ALLIED HEALTHon 07-26-2021 ALLIED HEALTH HNO ID: [id number] Author: Stephanie Maldonado, molder shoulder pad Service: Radiology Author Type: Production Artist Type: Allied Health Filed: 07/26/2021 4:10 PM Note Text: Spoke with nurse. Pt getting new EVD today. Try tomorrow. Normal [facility] Bacteria CSF Culton 07-27-19 22 Bacteria identified Cx Nom (CSF) Abnormal [facility] Comment on above: Performed By: #### 6 06-4 ####[facility] LABORATORYCLIA [id number] [address] OF [facility] Basic metabolic 2000 panelon 07-26-2021 Anion gap [Moles/Vol] 6 mmol/L Low 9-18 [facility] Comment on above: Order Comment: Speci men Type: BLOOD SPECIMENOrdering Facility: [facility] Address: [address] [place] [address] Performed By: #### 2 4321-2 ####[facility] LABORATORYCLIA [id number] [place] [address] [place] Calcium [Mass/Vol] 9.2 mg/dL Normal 8.5-10.2 [facility] Comment on above: Order Comment: Speci men Type: BLOOD SPECIMENOrdering Facility: [facility] Address: [address] [place] [address] Performed By: #### 2 4321-2 ####[facility] LABORATORYCLIA [id number] [place] [address] [place] Chloride [Moles/Vol] 99 mmol/L Normal 97-105 [facility] Comment on above: Order Comment: Speci men Type: BLOOD SPECIMENOrdering Facility: [facility] Address: [address] [place] [address] Performed By: #### 2 4321-2 ####[facility] LABORATORYCLIA [id number] [place] [address] [place] CO2 [Moles/Vol] 32 mmol/L High 22-30 [facility] Comment on above: Order Comment: Speci men Type: BLOOD SPECIMENOrdering Facility: [facility] Address: [address] [place] [address] Performed By: #### 2 4321-2 ####[facility] LABORATORYCLIA [id number] [address] [place] Creatinine [Mass/Vol] 0.74 mg/dL Normal 0.73-1.22 [facility] Comment on above: Order Comment: Speci francia Type: BLOOD SPECIMENOrdering Facility: [facility] Address: [address] [place] [address] Performed By: #### 2 4321-2 ####[facility]PITALIA [id number] [address] ESTIMATED GLOMERULAR FILTRATION RATE 98 mL/min/1.73m??? Normal >=60 [facility] Comment on above: Order Comment: Speci men Type: BLOOD SPECIMENOrdering Facility: [facility] Address: [address] [place] [address] Result Comment: Luzmaria mated Glomerular Filtration Rate [...] actual GFR. Performed By: #### 2 4321-2 ####[facility] LABORATORYCLIA [id number] [address] [place] Glucose [Mass/Vol] 126 mg/dL High 74-99 [facility] Comment on above: Order Comment: Shira feldman Type: BLOOD SPECIMENOrdering Facility: [facility] Address: [address] [place] [address] Result Comment: The [place] [employer] (ADA) [...] 2016.39(Suppl 1). Performed By: #### 2 4321-2 ####[facility] LABORATORYCLIA [id number] [address] STATES OF [facility] Potassium [Moles/Vol] 4.2 mmol/L Normal 3.7-5.1 [facility] Comment on above: Order Comment: Shira feldman Type: BLOOD SPECIMENOrdering Facility: [facility] Address: [address] [place] [address] Performed By: #### 2 4321-2 ####[facility]ORATORYCLIA [id number] [address] Sodium [Moles/Vol] 137 mmol/L Normal 136-144 [facility] Comment on above: Order Comment: Shira feldman Type: BLOOD SPECIMENOrdering Facility: [facility] Address: [address] [place] [address] Performed By: #### 2 4321-2 ####[facility] LABORATORYCLIA [id number] [address] STATES [facility] Urea nitrogen [Mass/Vol] 36 mg/dL High 9-24 [facility] Comment on above: Order Comment: Shira feldman Type: BLOOD SPECIMENOrdering Facility: [facility] Address: [address] [place] [address] Performed By: #### 2 4321-2 ####[facility]ORATORYCLIA [id number] [address] [place] CBC W Auto Differential pane l (Bld)on 07-26-2021 Basophils (Bld) [#/Vol] 0.04 10*3/uL Normal <0.11 [facility] Comment on above: Order Comment: Speci men Type: BLOOD SPECIMENOrdering Facility: [facility] Address: [address] [place] [address] Performed By: #### 5 7021-8 ####[facility]ORATORYCLIA [id number] [address] STATES [facility] Basophils/100 WBC (Bld) 0.4 % Normal [facility] Comment on above: Order Comment: Speci men Type: BLOOD SPECIMENOrdering Facility: [facility] Address: [address] [place] [address] Performed By: #### 5 7021-8 ####[facility] LABORATORYCLIA [id number] [address] Differential cell count method Nom (Bld) Auto Normal [facility] Comment on above: Order Comment: Speci men Type: BLOOD SPECIMENOrdering Facility: [facility] Address: [address] [place] [address] Performed By: #### 5 7021-8 ####[facility] LABORATORYCLIA [id number] [address] [place] Eosinophils (Bld) [#/Vol] 0.63 10*3/uL High <0.46 [facility] Comment on above: Order Comment: Speci men Type: BLOOD SPECIMENOrdering Facility: [facility] Address: [address] [place] [address] Performed By: #### 5 7021-8 ####[facility]ORATORYCLIA [id number] [address] STATES [facility] Eosinophils/100 WBC (Bld) 5.8 % Normal [facility] Comment on above: Order Comment: Speci men Type: BLOOD SPECIMENOrdering Facility: [facility] Address: [address] [place] [address] Performed By: #### 5 7021-8 ####[facility]ORATORYCLIA [id number] [address] [place] Erythrocyte distribution width (RBC) [Ratio] 16.8 % High 11.5-15.0 [facility] Comment on above: Order Comment: Speci men Type: BLOOD SPECIMENOrdering Facility: [facility] Address: [address] [place] [address] Performed By: #### 5 7021-8 ####[facility] LABORATORYCLIA [id number] [address] [facility] Hematocrit (Bld) [Volume fraction] 31.2 % Low 39.0-51.0 [facility] Comment on above: Order Comment: Speci men Type: BLOOD SPECIMENOrdering Facility: [facility] Address: [address] [place] [address] Performed By: #### 5 7021-8 ####[facility] LABORATORYCLIA [id number] [address] STATES OF [facility] Hemoglobin (Bld) [Mass/Vol] 9.1 g/dL Low 13.0-17.0 [facility] Comment on above: Order Comment: Speci men Type: BLOOD SPECIMENOrdering Facility: [facility] Address: [address] [place] [address] Performed By: #### 5 7021-8 ####[facility] LABORATORYCLIA [id number] [address] OF [facility] IMMATURE GRAN % 0.6 % Normal [facility] Comment on above: Order Comment: Speci men Type: BLOOD SPECIMENOrdering Facility: [facility] Address: [address] [place] [address] Performed By: #### 5 7021-8 ####[facility] LABORATORYCLIA [id number] [address] IMMATURE GRAN ABS 0.07 k/uL Normal <0.10 [facility] Comment on above: Order Comment: Speci men Type: BLOOD SPECIMENOrdering Facility: [facility] Address: [address] [place] [address] Performed By: #### 5 7021-8 ####[facility] LABORATORYCLIA [id number] [address] OF [facility] Lymphocytes (Bld) [#/Vol] 2.16 10*3/uL Normal 1.00-4.00 [facility] Comment on above: Order Comment: Speci men Type: BLOOD SPECIMENOrdering Facility: [facility] Address: [address] [place] [address] Performed By: #### 5 7021-8 ####[facility] LABORATORYCLIA [id number] [address] Lymphocytes/100 WBC (Bld) 20.0 % Normal [facility] Comment on above: Order Comment: Speci men Type: BLOOD SPECIMENOrdering Facility: [facility] Address: [address] [place] [address] Performed By: #### 5 7021-8 ####[facility]ORATORYCLIA [id number] [address] MCH (RBC) [Entitic mass] 27.7 pg Normal 26.0-34.0 [facility] Comment on above: Order Comment: Speci men Type: BLOOD SPECIMENOrdering Facility: [facility] Address: [address] [place] [address] Performed By: #### 5 7021-8 ####[facility]ORATORYCLIA [id number] [address] [place] MCHC (RBC) [Mass/Vol] 29.2 g/dL Low 30.5-36.0 [facility] Comment on above: Order Comment: Speci men Type: BLOOD SPECIMENOrdering Facility: [facility] Address: [address] [place] [address] Performed By: #### 5 7021-8 ####[facility]ORATORYCLIA [id number] [address] MCV (RBC) [Entitic vol] 95.1 fL Normal 80.0-100.0 [facility] Comment on above: Order Comment: Speci men Type: BLOOD SPECIMENOrdering Facility: [facility] Address: [address] [address] Performed By: #### 5 7021-8 ####[facility]ATORYCLIA [id number] [place] [address] [place] Monocytes (Bld) [#/Vol] 0.63 10*3/uL Normal <0.87 [facility] Comment on above: Order Comment: Speci men Type: BLOOD SPECIMENOrdering Facility: [facility] Address: [address] [place] [address] Performed By: #### 5 7021-8 ####[facility]ATORYCLIA [id number] [address] [place] Monocytes/100 WBC (Bld) 5.8 % Normal [facility] Comment on above: Order Comment: Speci men Type: BLOOD SPECIMENOrdering Facility: [facility] Address: [address] [place] [address] Performed By: #### 5 7021-8 ####[facility]ORATORYCLIA [id number] [address] [place] Neutrophils (Bld) [#/Vol] 7.25 10*3/uL Normal 1.45-7.50 [facility] Comment on above: Order Comment: Speci men Type: BLOOD SPECIMENOrdering Facility: [facility] Address: [address] [place] [address] Performed By: #### 5 7021-8 ####[facility]ATORYCLIA [id number] [address] [place] Neutrophils/100 WBC (Bld) 67.4 % Normal [facility] Comment on above: Order Comment: Speci men Type: BLOOD SPECIMENOrdering Facility: [facility] Address: [address] [place] [address] Performed By: #### 5 7021-8 ####[facility]ORATORYCLIA [id number] [place] [address] [place] Nucleated RBC (Bld) [#/Vol] 10*3/uL Normal <0.01 [facility] Comment on above: Order Comment: Speci men Type: BLOOD SPECIMENOrdering Facility: [facility] Address: [address] [place] [address] Performed By: #### 5 7021-8 ####[facility]ATORYCLIA [id number] [address] Nucleated RBC/100 WBC (Bld) [Ratio] 0.0 /100 WBC Normal [facility] Comment on above: Order Comment: Speci men Type: BLOOD SPECIMENOrdering Facility: [facility] Address: [address] [place] [address] Performed By: #### 5 7021-8 ####[facility]ORATORYCLIA [id number] [address] [place] Platelet mean volume (Bld) [Entitic vol] 11.2 fL Normal 9.0-12.7 [facility] Comment on above: Order Comment: Speci men Type: BLOOD SPECIMENOrdering Facility: [facility] Address: [address] [place] [address] Performed By: #### 5 7021-8 ####[facility]ORATORYCLIA [id number] [address] [place] Platelets (Bld) [#/Vol] 245 10*3/uL Normal 150-400 [facility] Comment on above: Order Comment: Speci men Type: BLOOD SPECIMENOrdering Facility: [facility] Address: [address] [place], [place] [id number] Performed By: #### 5 7021-8 ####[facility]ORATORYCLIA [id number] [address] [place] RBC (Bld) [#/Vol] 3.28 10*6/uL Low 4.20-6.00 [facility] Comment on above: Order Comment: Speci men Type: BLOOD SPECIMENOrdering Facility: [facility] Address: [address] [place] [address] Performed By: #### 5 7021-8 ####[facility]ORATORYCLIA [id number] [place] [address] [place] WBC (Bld) [#/Vol] 10.78 10*3/uL Normal 3.70-11.00 [facility] Comment on above: Order Comment: Speci men Type: BLOOD SPECIMENOrdering Facility: [facility] Address: [address] [place] [address] Performed By: #### 5 7021-8 ####[facility]ORATORYCLIA [id number] [address] [place] CSF MANUAL DIFFon 07-26-2021 DIF TTL, CSF 100 cells counted Normal [facility] Comment on above: Order Comment: Speci men Type: CEREBROSPINAL FLUIDOrdering Facility: [facility] Address: [address] [place] [address] Performed By: #### 3 4563-7, [id number], [id number] ####[facility]ORATORYCLIA [id number] [address] [place] LYMPH%, CSF 26 % Low 50-90 [facility] Comment on above: Order Comment: Speci men Type: CEREBROSPINAL FLUIDOrdering Facility: [facility] Address: [address] [place] [address] Performed By: #### 3 4563-7, [id number], [id number] ####[facility]ORATORYCLIA [id number] [place] [address] [place] MACRO%, CSF 10 % High <1 [facility] Comment on above: Order Comment: Speci men Type: CEREBROSPINAL FLUIDOrdering Facility: [facility] Address: [address] [place] [address] Performed By: #### 3 4563-7, [id number], [id number] ####[facility]ATORYCLIA [id number] [address] [place] MONO%, CSF 20 % Normal 10-50 [facility] Comment on above: Order Comment: Speci men Type: CEREBROSPINAL FLUIDOrdering Facility: [facility] Address: [address] [place] [address] Performed By: #### 3 4563-7, [id number], [id number] ####[facility]ATORYCLIA [id number] [place] [address] [place] NEUT%, CSF 40 % High 0-3 [facility] Comment on above: Order Comment: Speci men Type: CEREBROSPINAL FLUIDOrdering Facility: [facility] Address: [address] [place] [address] Performed By: #### 3 4563-7, [id number], [id number] ####[facility]ORATORYCLIA [id number] [address] OF [facility] OTHER CL%, CSF 2 % Normal [facility] Comment on above: Order Comment: Speci men Type: CEREBROSPINAL FLUIDOrdering Facility: [facility] Address: [address] [place] [address] Result Comment: Path review to follow. Performed By: #### 3 4563-7, [id number], [id number] ####[facility]ORATORYCLIA [id number] [address] [place] REAC LYMPH %, CSF 2 % Normal [facility] Comment on above: Order Comment: Speci men Type: CEREBROSPINAL FLUIDOrdering Facility: [facility] Address: [address] [place] [address] Performed By: #### 3 4563-7, [id number], [id number] ####[facility]ORATORYCLIA [id number] [address] [place] CSF PATHOLOGIST INTERP (LAB REFLEX ORDER-NO BILL)on 07-26-2021 CSF STAFF REVIEW Negative for maligna nt cells. Rare bacteria present, cocci in pairs and chains. Correlation with CSF cultures is recommended. Normal [facility] Comment on above: Order Comment: Speci men Type: CEREBROSPINAL FLUIDOrdering Facility: [facility] Address: [address] [place] [address] Performed By: #### 3 4563-7, [id number], [id number] ####[facility]ATORYCLIA [id number] [address] [place] Pathologist name Reviewed by Amador Stevens MD Normal [facility] Comment on above: Order Comment: Speci men Type: CEREBROSPINAL FLUIDOrdering Facility: [facility] Address: [address] [place] [address] Performed By: #### 3 4563-7, [id number], [id number] ####[facility]ATORYCLIA [id number] [address] Cell count panel (CSF)on Clarity (CSF) Slightly Cloudy Abnormal Clear [facility] Comment on above: Order Comment: Speci men Type: CEREBROSPINAL FLUIDOrdering Facility: [facility] Address: [address] [place] [address] Performed By: #### 3 4563-7, [id number], [id number] ####[facility]ATORYCLIA [id number] [address] [place] Clarity (Unsp spec) Clear Normal Clear [facility] Comment on above: Order Comment: Speci men Type: CEREBROSPINAL FLUIDOrdering Facility: [facility] Address: [address] [place] [address] Performed By: #### 3 4563-7, [id number], [id number] ####[facility]ATORYCLIA [id number] [address] [place] Color (CSF) Colorless Normal Colorless [facility] Comment on above: Order Comment: Speci men Type: CEREBROSPINAL FLUIDOrdering Facility: [facility] Address: [address] [place] [address] Performed By: #### 3 4563-7, [id number], [id number] ####[facility]ATORYCLIA [id number] [address] [place] Color (Spun CSF) Not Indicated Normal Colorless [facility] Comment on above: Order Comment: Speci men Type: CEREBROSPINAL FLUIDOrdering Facility: [facility] Address: [address] [place] [address] Performed By: #### 3 4563-7, [id number], [id number] ####[facility]ATORYCLIA [id number] [address] CSF TUBE [employer] Normal [facility] Comment on above: Order Comment: Speci men Type: CEREBROSPINAL FLUIDOrdering Facility: [facility] Address: [address] [place] [address] Performed By: #### 3 4563-7, [id number], [id number] ####[facility]ATORYCLIA [id number] [address] [place] RBC Manual cnt (CSF) [#/Vol] 1 cells/uL Normal 0-5 [facility] Comment on above: Order Comment: Speci men Type: CEREBROSPINAL FLUIDOrdering Facility: [facility] Address: [address] [place] [address] Performed By: #### 3 4563-7, [id number], [id number] ####[facility]ATORYCLIA [id number] [address] STATES [facility] WBC Manual cnt (CSF) [#/Vol] 50 cells/uL High 0-5 [facility] Comment on above: Order Comment: Speci men Type: CEREBROSPINAL FLUIDOrdering Facility: [facility] Address: [address] [place] [address] Performed By: #### 3 4563-7, [id number], [id number] ####[facility]ORATORYCLIA [id number] [address] [place] Glucose CSF-mCncon 2 Glucose (CSF) [Mass/Vol] 64 mg/dL Normal 40-70 [facility] Comment on above: Order Comment: Speci men Type: CEREBROSPINAL FLUIDOrdering Facility: [facility] Address: [address] [place] [address] Result Comment: Lumb ar CSF glucose values of healthy patients are approximately 60% of the plasma values and must always be compared with a concurrently measured plasma value for adequate clinical interpretation.References: 1. Glucose HK (GLUC3) [package insert V 12.0 [place]ian]. [employer], [place], [place]. September 2015. 2. Michelle Moore, Loki HGarfield (2015). Chapter 7: Glucose and Lactate. Marianela Rothman.(eds.), Cerebrospinal Fluid in Clinical Neurology. [place]: [employer]. Performed By: #### 2 880-3, 2341-4 ####[facility]ORATORYCLIA [id number] [address] Magnesium SerPl[facility] Magnesium [Mass/Vol] 2.3 mg/dL Normal 1.7-2.3 [facility] Comment on above: Order Comment: Speci men Type: BLOOD SPECIMENOrdering Facility: [facility] Address: [address] [place] [address] Performed By: #### 1 9123-9, 2777-1, 3015-3 ####[facility]STERCLIA [id number] [address] NURSING PROGon 07-26-2021 NURSING PROG Normal [facility] Phosphate SerPl-ncon 07-26 Phosphate [Mass/Vol] 2.6 mg/dL Low 2.7-4.8 [facility] Comment on above: Order Comment: Speci men Type: BLOOD SPECIMENOrdering Facility: [facility] Address: [address] [place] [address] Performed By: #### 1 9123-9, 2777-1, 6-3 ####[facility]ORATORYCLIA [id number] [address] Prot CSF-mCncon 07-26-2021 Protein (CSF) [Mass/Vol] 64 mg/dL High 15-45 [facility] Comment on above: Order Comment: Speci men Type: CEREBROSPINAL FLUIDOrdering Facility: [facility] Address: [address] [place] [address] Performed By: #### 2 880-3, 2341-4 ####[facility]ORATORYCLIA [id number] [address] [place] THERAPY NTon 07-26-2021 THERAPY NT Normal [facility] TSH SerPl-aCncon 07-26-2021 TSH Qn 1.470 m[IU]/L Normal 0.270-4.200 [facility] Comment on above: Order Comment: Speci men Type: BLOOD SPECIMENOrdering Facility: [facility] Address: [address] [place] [address] Performed By: #### 1 9123-9, 2777-1, 3016-3 ####[facility]ATORYCLIA [id number] [address] [place] VITAMIN B12 BLOODon 07-27-19 Cobalamin (Vitamin B12) [Mass/Vol] 934 pg/mL Normal 232-1,245 [facility] Comment on above: Order Comment: Speci men Type: BLOOD SPECIMENOrdering Facility: [facility] Address: [address] [place] [address] Performed By: #### B 12 ####[facility]ORATORYCLIA [id number] [address] [place] aPTT PPPon 07-26-2021 aPTT Coag (PPP) [Time] 53.6 s High 23.0-32.4 [facility] Comment on above: Order Comment: Speci men Type: BLOOD SPECIMENOrdering Facility: [facility] Address: [address] [place] [address] Performed By: #### 1 4979-9 ####[facility]ATORYCLIA [id number] [address] aPTT Coag (PPP) [Time] 44.9 s High 23.0-32.4 [facility] Comment on above: Order Comment: Speci men Type: BLOOD SPECIMENOrdering Facility: [facility] Address: [address] [place] [address] Performed By: #### 1 4979-9 ####[facility]ORATORYCLIA [id number] [address] ALLIED HEALTHon 07-25-2021 ALLIED HEALTH HNO ID: [id number] Author: Shannon Bess RT(R) Service: Radiology Author Type: Technologist Type: Allied Health Filed: 07/25/2021 1:37 PM Note Text: Called floor for MRI screening form [id number] Normal [facility] Bacteria Bld Culton 07-26-19 22 Bacteria identified Cx Nom (Bld) CULTURE, BLOOD: No growth 5 days Normal [facility] Comment on above: Performed By: #### 6 00-7 ####[facility]ATORYCLIA [id number] [address] Bacteria identified Cx Nom (Bld) CULTURE, BLOOD: No growth 5 days Normal [facility] Comment on above: Performed By: #### 6 00-7 ####[facility]ATORYCLIA [id number] [address] CASE MANAGEMon 07-25-2021 CASE MANAGEM Normal [facility] CBC W Auto Differential pane l (Bld)on 07-25-2021 Basophils (Bld) [#/Vol] 0.06 10*3/uL Normal <0.11 [facility] Comment on above: Order Comment: Speci men Type: BLOOD SPECIMENOrdering Facility: [facility] Address: [address] [place] [address] Performed By: #### 5 7021-8 ####[facility]ATORYCLIA [id number] [address] Basophils/100 WBC (Bld) 0.6 % Normal [facility] Comment on above: Order Comment: Speci men Type: BLOOD SPECIMENOrdering Facility: [facility] Address: [facility] [place] [address] Performed By: #### 5 7021-8 ####[facility]ORATORYCLIA [id number] [address] Differential cell count method Nom (Bld) Auto Normal [facility] Comment on above: Order Comment: Speci men Type: BLOOD SPECIMENOrdering Facility: [facility] Address: [address] [place] [address] Performed By: #### 5 7021-8 ####[facility]ORATORYCLIA [id number] [address] [place] Eosinophils (Bld) [#/Vol] 0.26 10*3/uL Normal <0.46 [facility] Comment on above: Order Comment: Speci men Type: BLOOD SPECIMENOrdering Facility: [facility] Address: [address] [place] [address] Performed By: #### 5 7021-8 ####[facility]ORATORYCLIA [id number] [address] OF [facility] Eosinophils/100 WBC (Bld) 2.5 % Normal [facility] Comment on above: Order Comment: Speci men Type: BLOOD SPECIMENOrdering Facility: [facility] Address: [address] [place] [address] Performed By: #### 5 7021-8 ####[facility]ATORYCLIA [id number] [address] [place] Erythrocyte distribution width (RBC) [Ratio] 16.9 % High 11.5-15.0 [facility] Comment on above: Order Comment: Speci men Type: BLOOD SPECIMENOrdering Facility: [facility] Address: [address] [place] [address] Performed By: #### 5 7021-8 ####[facility]ORATORYCLIA [id number] [address] [place] Hematocrit (Bld) [Volume fraction] 29.6 % Low 39.0-51.0 [facility] Comment on above: Order Comment: Speci men Type: BLOOD SPECIMENOrdering Facility: [facility] Address: [address] [place] [address] Performed By: #### 5 7021-8 ####[facility]ATORYCLIA [id number] [address] OF [facility] Hemoglobin (Bld) [Mass/Vol] 8.8 g/dL Low 13.0-17.0 [facility] Comment on above: Order Comment: Speci men Type: BLOOD SPECIMENOrdering Facility: [facility] Address: [address] [place] [address] Performed By: #### 5 7021-8 ####[facility]ORATORYCLIA [id number] [address] IMMATURE GRAN % 0.6 % Normal [facility] Comment on above: Order Comment: Speci men Type: BLOOD SPECIMENOrdering Facility: [facility] Address: [address] [place] [address] Performed By: #### 5 7021-8 ####[facility]ORATORYCLIA [id number] [address] IMMATURE GRAN ABS 0.06 k/uL Normal <0.10 [facility] Comment on above: Order Comment: Speci men Type: BLOOD SPECIMENOrdering Facility: [facility] Address: [address] [place] [address] Performed By: #### 5 7021-8 ####[facility]ORATORYCLIA [id number] [address] [place] Lymphocytes (Bld) [#/Vol] 2.15 10*3/uL Normal 1.00-4.00 [facility] Comment on above: Order Comment: Speci men Type: BLOOD SPECIMENOrdering Facility: [facility] Address: [address] [place] [address] Performed By: #### 5 7021-8 ####[facility]ORATORYCLIA [id number] [address] Lymphocytes/100 WBC (Bld) 20.7 % Normal [facility] Comment on above: Order Comment: Speci men Type: BLOOD SPECIMENOrdering Facility: [facility] Address: [address] [place] [address] Performed By: #### 5 7021-8 ####[facility]ORATORYCLIA [id number] [address] MCH (RBC) [Entitic mass] 28.2 pg Normal 26.0-34.0 [facility] Comment on above: Order Comment: Speci men Type: BLOOD SPECIMENOrdering Facility: [facility] Address: [address] [place] [address] Performed By: #### 5 7021-8 ####[facility]ORATORYCLIA [id number] [address] STATES [facility] MCHC (RBC) [Mass/Vol] 29.7 g/dL Low 30.5-36.0 [facility] Comment on above: Order Comment: Speci men Type: BLOOD SPECIMENOrdering Facility: [facility] Address: [address] [place] [address] Performed By: #### 5 7021-8 ####[facility]ATORYCLIA [id number] [address] MCV (RBC) [Entitic vol] 94.9 fL Normal 80.0-100.0 [facility] Comment on above: Order Comment: Speci men Type: BLOOD SPECIMENOrdering Facility: [facility] Address: [address] [place] [address] Performed By: #### 5 7021-8 ####[facility]ATORYCLIA [id number] [address] Monocytes (Bld) [#/Vol] 0.62 10*3/uL Normal <0.87 [facility] Comment on above: Order Comment: Speci men Type: BLOOD SPECIMENOrdering Facility: [facility] Address: [address] [place] [address] Performed By: #### 5 7021-8 ####[facility] LABORATORYCLIA [id number] [address] Monocytes/100 WBC (Bld) 6.0 % Normal [facility] Comment on above: Order Comment: Speci men Type: BLOOD SPECIMENOrdering Facility: [facility] Address: [address] [address] Performed By: #### 5 7021-8 ####[facility] LABORATORYCLIA [id number] [address] [place] Neutrophils (Bld) [#/Vol] 7.25 10*3/uL Normal 1.45-7.50 [facility] Comment on above: Order Comment: Speci men Type: BLOOD SPECIMENOrdering Facility: [facility] Address: [address] [place] [address] Performed By: #### 5 7021-8 ####[facility] LABORATORYCLIA [id number] [address] Neutrophils/100 WBC (Bld) 69.6 % Normal [facility] [facility] Comment on above: Order Comment: Speci men Type: BLOOD SPECIMENOrdering Facility: [facility] Address: [address] [place] [address] Performed By: #### 5 7021-8 ####[facility] LABORATORYCLIA [id number] [address] Nucleated RBC (Bld) [#/Vol] 10*3/uL Normal <0.01 [facility] Comment on above: Order Comment: Speci men Type: BLOOD SPECIMENOrdering Facility: [facility] Address: [address] [place] [address] Performed By: #### 5 7021-8 ####[facility]ATORYCLIA [id number] [address] Nucleated RBC/100 WBC (Bld) [Ratio] 0.0 /100 WBC Normal [facility] Comment on above: Order Comment: Speci men Type: BLOOD SPECIMENOrdering Facility: [facility] Address: [address] [place] [address] Performed By: #### 5 7021-8 ####[facility]ATORYCLIA [id number] [address] Platelet mean volume (Bld) [Entitic vol] 11.3 fL Normal 9.0-12.7 [facility] Comment on above: Order Comment: Speci men Type: BLOOD SPECIMENOrdering Facility: [facility] Address: [address] [place] [address] Performed By: #### 5 7021-8 ####[facility] LABORATORYCLIA [id number] [address] [place] Platelets (Bld) [#/Vol] 243 10*3/uL Normal 150-400 [facility] Comment on above: Order Comment: Speci men Type: BLOOD SPECIMENOrdering Facility: [facility] Address: [address] [place] [address] Performed By: #### 5 7021-8 ####[facility] LABORATORYCLIA [id number] [place] [address] [place] RBC (Bld) [#/Vol] 3.12 10*6/uL Low 4.20-6.00 [facility] Comment on above: Order Comment: Speci men Type: BLOOD SPECIMENOrdering Facility: [facility] Address: [address] [place] [address] Performed By: #### 5 7021-8 ####[facility] LABORATORYCLIA [id number] [address] [place] WBC (Bld) [#/Vol] 10.40 10*3/uL Normal 3.70-11.00 [facility] Comment on above: Order Comment: Speci men Type: BLOOD SPECIMENOrdering Facility: [facility] Address: [address] [place] [address] Performed By: #### 5 7021-8 ####[facility]ORATORYCLIA [id number] [address] CONSULT PROGon 07-25-2021 CONSULT PROG Normal [facility] MYCOPLASMA PNEUM IGMon 07-25 M. PNEUMO IGM, QUAL Negative Normal Negative [facility] Comment on above: Order Comment: Speci men Type: BLOOD SPECIMENOrdering Facility: [facility] Address: [address] [place] [address] Result Comment: Myco plasma pneumoniae IgM antibody test is used as an aid in diagnosis of recent infection with M. pneumoniae. It may occasionally remain elevated for extended periods after an acute infection. Cannot exclude recent infection if the specimen collected 7-10 days after onset of signs and symptoms. Clinical correlation is required. Performed By: #### M YCOPM ####[facility] LABCLIA [id number] [facility] [id number] [address] [place] NURSING PROGon 07-25-2021 NURSING PROG Normal [facility] THERAPY NTon 07-25-2021 THERAPY NT Normal [facility] THERAPY NT Normal [facility] aPTT PPPon 07-25-2021 aPTT Coag (PPP) [Time] 62.6 s High 23.0-32.4 [facility] Comment on above: Order Comment: Speci men Type: BLOOD SPECIMENOrdering Facility: [facility] Address: [address] [place] [address] Performed By: #### 1 4979-9 ####[facility]ORATORYCLIA [id number] [address] [place] Bacteria Ur Culton 2 Bacteria identified Cx Nom (U) CULTURE, URINE: No growth (<100 CFU/ml) Normal [facility] Comment on above: Performed By: #### 6 30-4 ####[facility]ORATORYCLIA [id number] [place] [address] [place] Basic metabolic 2000 panelon 07-24-2021 Anion gap [Moles/Vol] 13 mmol/L Normal 9-18 [facility] Comment on above: Order Comment: Speci men Type: BLOOD SPECIMENOrdering Facility: [facility] Address: [address] [place] [address] Performed By: #### 1 9123-9, PROCAL, 2777-1, 57063-7 ####[facility]ORATORYCLIA [id number] [place] [address] [place] Calcium [Mass/Vol] 9.5 mg/dL Normal 8.5-10.2 [facility] Comment on above: Order Comment: Speci men Type: BLOOD SPECIMENOrdering Facility: [facility] Address: [address] [place] [address] Performed By: #### 1 9123-9, PROCAL, 2777-1, 05138-8 ####[facility]ORATORYCLIA [id number] [place] [address] [place] Chloride [Moles/Vol] 102 mmol/L Normal 97-105 [facility] Comment on above: Order Comment: Speci men Type: BLOOD SPECIMENOrdering Facility: [facility] Address: [address] [place] [address] Performed By: #### 1 9123-9, PROCAL, 7-1, 34937-5 ####[facility]ORATORYCLIA [id number] [address] STATES OF [facility] CO2 [Moles/Vol] 28 mmol/L Normal 22-30 [facility] Comment on above: Order Comment: Speci men Type: BLOOD SPECIMENOrdering Facility: [facility] Address: [address] [place] [address] Performed By: #### 1 9123-9, PROCAL, 2776-1, 64184-2 ####[facility]ORATORYCLIA [id number] [place] [address] [place] Creatinine [Mass/Vol] 0.86 mg/dL Normal 0.73-1.22 [facility] Comment on above: Order Comment: Speci men Type: BLOOD SPECIMENOrdering Facility: [facility] Address: [address] [place] [address] Performed By: #### 1 9123-9, PROCAL, 7-1, 72848-5 ####[facility]ORATORYCLIA [id number] [address] ESTIMATED GLOMERULAR FILTRATION RATE 94 mL/min/1.73m??? Normal >=60 [facility] Comment on above: Order Comment: Shira feldman Type: BLOOD SPECIMENOrdering Facility: [facility] Address: [address] [place] [address] Result Comment: Luzmaria mated Glomerular Filtration Rate [...] Performed By: #### 1 9123-9, KATIE, 2777-1, 31160-8 ####[facility]UNSTERCLIA [id number] [place] [address] [place] Glucose [Mass/Vol] 148 mg/dL High 74-99 [facility] Comment on above: Order Comment: Shira feldman Type: BLOOD SPECIMENOrdering Facility: [facility] Address: [address] [place] [address] Result Comment: The [place] [employer] (ADA) [...] 1). Performed By: #### 1 9123-9, KATIE, 2777-1, 84728-6 ####[facility]ORATORYCLIA [id number] [place] [address] [place] Potassium [Moles/Vol] 4.0 mmol/L Normal 3.7-5.1 [facility] Comment on above: Order Comment: Shira men Type: BLOOD SPECIMENOrdering Facility: [facility] Address: [address] [place] [address] Performed By: #### 1 9123-9, PROCCARLITOS, 2776-05, 54630-1 ####[facility]ORATORYCLIA [id number] [address] Sodium [Moles/Vol] 143 mmol/L Normal 136-144 [facility] Comment on above: Order Comment: Speci men Type: BLOOD SPECIMENOrdering Facility: [facility] Address: [address] [place] [address] Performed By: #### 1 9123-9, KATIE, 2776-05, 32702-9 ####[facility]ORATORYCLIA [id number] [address] STATES [facility] Urea nitrogen [Mass/Vol] 38 mg/dL High 9-24 [facility] Comment on above: Order Comment: Speci men Type: BLOOD SPECIMENOrdering Facility: [facility] Address: [address] [place] [address] Performed By: #### 1 9123-9, KATIE, 2776-05, 43996-9 ####[facility]ORATORYCLIA [id number] [address] CBC W Auto Differential pane l (Bld)on 07-24-2021 Basophils (Bld) [#/Vol] 0.06 10*3/uL Normal <0.11 [facility] Comment on above: Order Comment: Speci men Type: BLOOD SPECIMENOrdering Facility: [facility] Address: [address] [place] [address] Performed By: #### 5 7021-8 ####[facility]ORATORYCLIA [id number] [address] Basophils/100 WBC (Bld) 0.6 % Normal [facility] Comment on above: Order Comment: Speci men Type: BLOOD SPECIMENOrdering Facility: [facility] Address: [address] [place] [address] Performed By: #### 5 7021-8 ####[facility]ORATORYCLIA [id number] [address] Differential cell count method Nom (Bld) Auto Normal [facility] Comment on above: Order Comment: Speci men Type: BLOOD SPECIMENOrdering Facility: [facility] Address: [address] [place] [address] Performed By: #### 5 7021-8 ####[facility]ORATORYCLIA [id number] [address] Eosinophils (Bld) [#/Vol] 0.03 10*3/uL Normal <0.46 [facility] Comment on above: Order Comment: Speci men Type: BLOOD SPECIMENOrdering Facility: [facility] Address: [address] [place] [address] Performed By: #### 5 7021-8 ####[facility]ORATORYCLIA [id number] [address] Eosinophils/100 WBC (Bld) 0.3 % Normal [facility] Comment on above: Order Comment: Speci men Type: BLOOD SPECIMENOrdering Facility: [facility] Address: [address] [place] [address] Performed By: #### 5 7021-8 ####[facility]ORATORYCLIA [id number] [address] Erythrocyte distribution width (RBC) [Ratio] 17.0 % High 11.5-15.0 [facility] Comment on above: Order Comment: Speci men Type: BLOOD SPECIMENOrdering Facility: [facility] Address: [address] [place] [address] Performed By: #### 5 7021-8 ####[facility]ORATORYCLIA [id number] [address] Hematocrit (Bld) [Volume fraction] 30.5 % Low 39.0-51.0 [facility] Comment on above: Order Comment: Speci men Type: BLOOD SPECIMENOrdering Facility: [facility] Address: [address] [place] [address] Performed By: #### 5 7021-8 ####[facility]ORATORYCLIA [id number] [address] Hemoglobin (Bld) [Mass/Vol] 9.0 g/dL Low 13.0-17.0 [facility] Comment on above: Order Comment: Speci men Type: BLOOD SPECIMENOrdering Facility: [facility] Address: [address] [place] [address] Performed By: #### 5 7021-8 ####[facility]ORATORYCLIA [id number] [address] IMMATURE GRAN % 0.5 % Normal [facility] Comment on above: Order Comment: Speci men Type: BLOOD SPECIMENOrdering Facility: [facility] Address: [address] [place] [address] Performed By: #### 5 7021-8 ####[facility]ORATORYCLIA [id number] [address] IMMATURE GRAN ABS 0.05 k/uL Normal <0.10 [facility] Comment on above: Order Comment: Speci men Type: BLOOD SPECIMENOrdering Facility: [facility] Address: [address] [place] [address] Performed By: #### 5 7021-8 ####[facility]ORATORYCLIA [id number] [address] [place] Lymphocytes (Bld) [#/Vol] 1.68 10*3/uL Normal 1.00-4.00 [facility] Comment on above: Order Comment: Speci men Type: BLOOD SPECIMENOrdering Facility: [facility] Address: [address] [place] [address] Performed By: #### 5 7021-8 ####[facility]ORATORYCLIA [id number] [address] Lymphocytes/100 WBC (Bld) 16.2 % Normal [facility] Comment on above: Order Comment: Speci men Type: BLOOD SPECIMENOrdering Facility: [facility] Address: [address] [place] [address] Performed By: #### 5 7021-8 ####[facility]ORATORYCLIA [id number] [address] MCH (RBC) [Entitic mass] 27.4 pg Normal 26.0-34.0 [facility] Comment on above: Order Comment: Speci men Type: BLOOD SPECIMENOrdering Facility: [facility] Address: [address] [place] [address] Performed By: #### 5 7021-8 ####[facility]ORATORYCLIA [id number] [address] MCHC (RBC) [Mass/Vol] 29.5 g/dL Low 30.5-36.0 [facility] Comment on above: Order Comment: Speci men Type: BLOOD SPECIMENOrdering Facility: [facility] Address: [address] [place] [address] Performed By: #### 5 7021-8 ####[facility]ORATORYCLIA [id number] [address] MCV (RBC) [Entitic vol] 93.0 fL Normal 80.0-100.0 [facility] Comment on above: Order Comment: Speci men Type: BLOOD SPECIMENOrdering Facility: [facility] Address: [address] [place] [address] Performed By: #### 5 7021-8 ####[facility]ORATORYCLIA [id number] [address] Monocytes (Bld) [#/Vol] 0.63 10*3/uL Normal <0.87 [facility] Comment on above: Order Comment: Speci men Type: BLOOD SPECIMENOrdering Facility: [facility] Address: [address] [place] [address] Performed By: #### 5 7021-8 ####[facility]ORATORYCLIA [id number] [address] [place] Monocytes/100 WBC (Bld) 6.1 % Normal [facility] Comment on above: Order Comment: Speci men Type: BLOOD SPECIMENOrdering Facility: [facility] Address: [address] [place] [address] Performed By: #### 5 7021-8 ####[facility]ORATORYCLIA [id number] [place] [address] [place] Neutrophils (Bld) [#/Vol] 7.91 10*3/uL High 1.45-7.50 [facility] Comment on above: Order Comment: Speci men Type: BLOOD SPECIMENOrdering Facility: [facility] Address: [address] [place] [address] Performed By: #### 5 7021-8 ####[facility]ORATORYCLIA [id number] [address] [place] Neutrophils/100 WBC (Bld) 76.3 % Normal [facility] Comment on above: Order Comment: Speci men Type: BLOOD SPECIMENOrdering Facility: [facility] Address: [address] [place] [address] Performed By: #### 5 7021-8 ####[facility]ORATORYCLIA [id number] [address] [place] Nucleated RBC (Bld) [#/Vol] 10*3/uL Normal <0.01 [facility] Comment on above: Order Comment: Speci men Type: BLOOD SPECIMENOrdering Facility: [facility] Address: [address] [place] [address] Performed By: #### 5 7021-8 ####[facility]ORATORYCLIA [id number] [address] [place] Nucleated RBC/100 WBC (Bld) [Ratio] 0.0 /100 WBC Normal [facility] Comment on above: Order Comment: Speci men Type: BLOOD SPECIMENOrdering Facility: [facility] Address: [address] [place], [place] [address] Performed By: #### 5 7021-8 ####[facility]ORATORYCLIA [id number] [address] Platelet mean volume (Bld) [Entitic vol] 11.1 fL Normal 9.0-12.7 [facility] Comment on above: Order Comment: Speci men Type: BLOOD SPECIMENOrdering Facility: [facility] Address: [address] [place] [address] Performed By: #### 5 7021-8 ####[facility]ORATORYCLIA [id number] [address] [place] Platelets (Bld) [#/Vol] 285 10*3/uL Normal 150-400 [facility] Comment on above: Order Comment: Speci men Type: BLOOD SPECIMENOrdering Facility: [facility] Address: [address] [place] [address] Performed By: #### 5 7021-8 ####[facility]ORATORYCLIA [id number] [address] [place] RBC (Bld) [#/Vol] 3.28 10*6/uL Low 4.20-6.00 [facility] Comment on above: Order Comment: Speci men Type: BLOOD SPECIMENOrdering Facility: [facility] Address: [address] [place] [address] Performed By: #### 5 7021-8 ####[facility]ORATORYCLIA [id number] [address] [place] WBC (Bld) [#/Vol] 10.36 10*3/uL Normal 3.70-11.00 [facility] Comment on above: Order Comment: Speci men Type: BLOOD SPECIMENOrdering Facility: [facility] Address: [address] [place] [address] Performed By: #### 5 7021-8 ####[facility]ORATORYCLIA [id number] [address] Legionella Ag Ur Qlon 2021 Legionella sp Ag Ql (U) Negative Normal Negative [facility] Comment on above: Order Comment: Speci men Type: URINE SPECIMENOrdering Facility: [facility] Address: [address] [place] [address] Performed By: #### 3 2781-7 ####[facility] LABORATORYCLIA [id number] [place] [address] [place] Magnesium SerPl-mCncon 07-24 Magnesium [Mass/Vol] 2.3 mg/dL Normal 1.7-2.3 [facility] Comment on above: Order Comment: Speci men Type: BLOOD SPECIMENOrdering Facility: [facility] Address: [address] [place] [address] Performed By: #### 1 9123-9, PROCWV, 2777-1, 73505-3 ####[facility]ORATORYCLIA [id number] [place] [address] [place] NURSING PROGon 07-24-2021 NURSING PROG Normal [facility] PROCALCITONIN (LAB)on 2021 Procalcitonin [Mass/Vol] 0.15 ng/mL High <0.09 [facility] Comment on above: Order Comment: Speci men Type: BLOOD SPECIMENOrdering Facility: [facility] Address: [address] [place] [address] Result Comment: For a guided interpretation of test results, please visit the Change in Procalcitonin Calculator, [email or web address]. Performed By: #### 1 9123-9, PROCAL, 7-1, 61317-1 ####[facility] LABORATORYCLIA [id number] [place] [address] [place] Phosphate SerPl-mCncon 07-24 Phosphate [Mass/Vol] 3.9 mg/dL Normal 2.7-4.8 [facility] Comment on above: Order Comment: Speci men Type: BLOOD SPECIMENOrdering Facility: [facility] Address: [address] [place] [address] Performed By: #### 1 9123-9, PROCAL, 2777-1, 64814-1 ####[facility] LABORATORYCLIA [id number] [address] STREPTOCOCCUS PNEUMONIAE AGo n 07-24-2021 STREPTOCOCCUS PNEUMONIAE AG Normal [facility] Comment on above: Performed By: #### S PNAG ####[facility]ORATORYCLIA [id number] [address] [place] aPTT PPPon 07-24-2021 aPTT Coag (PPP) [Time] 60.8 s High 23.0-32.4 [facility] Comment on above: Order Comment: Speci men Type: BLOOD SPECIMENOrdering Facility: [facility] Address: [address] [place] [address] Performed By: #### 1 4979-9 ####[facility]ORATORYCLIA [id number] [address] aPTT Coag (PPP) [Time] 38.2 s High 23.0-32.4 [facility] Comment on above: Order Comment: Speci men Type: BLOOD SPECIMENOrdering Facility: [facility] Address: [address] [place] [address] Performed By: #### 1 4979-9 ####[facility]ORATORYCLIA [id number] [address] aPTT Coag (PPP) [Time] 35.9 s High 23.0-32.4 [facility] Comment on above: Order Comment: Speci men Type: BLOOD SPECIMENOrdering Facility: [facility] Address: [address] [place] [address] Performed By: #### 1 4979-9 ####[facility]ORATORYCLIA [id number] [address] aPTT Coag (PPP) [Time] 28.8 s Normal 23.0-32.4 [facility] Comment on above: Order Comment: Speci men Type: BLOOD SPECIMENOrdering Facility: [facility] Address: [address] [place] [address] Performed By: #### 1 4979-9 ####[facility]ORATORYCLIA [id number] [address] [place] ALLIED HEALTHon 07-23-2021 ALLIED HEALTH Normal [facility] ALLIED HEALTH Normal [facility] ALLIED HEALTH Normal [facility] ARTERIAL BLOOD GASESon 07-23 Base excess Calc (Bld) [Moles/Vol] 4 mmol/L High 0-2 [facility] Comment on above: Order Comment: Speci men Type: ARTERIAL BLOOD SPECIMENOrdering Facility: [facility] Address: [address] [place] [address] Performed By: #### A LLBG ####[facility]ORATORYCLIA [id number] [address] Body temperature 100.58 [degF] Normal [facility] Comment on above: Order Comment: Speci men Type: ARTERIAL BLOOD SPECIMENOrdering Facility: [facility] Address: [address] [place] [address] Performed By: #### A LLBG ####[facility] LABORATORYCLIA [id number] [address] [place] CALCIUM IONIZED, PH CORRECTED 1.26 mmol/L Normal 1.08-1.30 [facility] Comment on above: Order Comment: Speci men Type: ARTERIAL BLOOD SPECIMENOrdering Facility: [facility] Address: [address] [place] [address] Performed By: #### A LLBG ####[facility]ORATORYCLIA [id number] [address] [place] Calcium.ionized (BldV) [Mass/Vol] 1.25 mmol/L Normal 1.08-1.30 [facility] Comment on above: Order Comment: Speci men Type: ARTERIAL BLOOD SPECIMENOrdering Facility: [facility] Address: [address] [place] [address] Performed By: #### A LLBG ####[facility]ORATORYCLIA [id number] [address] [place] Carboxyhemoglobin (BldA) [Mass fraction] 1.2 % Normal 0.0-2.0 [facility] Comment on above: Order Comment: Speci men Type: ARTERIAL BLOOD SPECIMENOrdering Facility: [facility] Address: [address] [place] [address] Result Comment: Carb oxyhemoglobin Reference Range for Smokers: 2.0-8.0% Performed By: #### A LLBG ####[facility] LABORATORYCLIA [id number] [address] [place] CO2 (Bld) [Partial pressure] 46 mm Hg Normal 36-46 [facility] Comment on above: Order Comment: Speci men Type: ARTERIAL BLOOD SPECIMENOrdering Facility: [facility] Address: [address] [place] [address] Performed By: #### A LLBG ####[facility] LABORATORYCLIA [id number] [address] [place] CO2 [Moles/Vol] 27 mmol/L Normal 22-28 [facility] Comment on above: Order Comment: Speci men Type: ARTERIAL BLOOD SPECIMENOrdering Facility: [facility] Address: [address] [place] [address] Performed By: #### A LLBG ####[facility] LABORATORYCLIA [id number] [place] CO2 adjusted to patient's actual temperature (Bld) [Partial pressure] 48 mmHg High 36-46 [facility] Comment on above: Order Comment: Speci men Type: ARTERIAL BLOOD SPECIMENOrdering Facility: [facility] Address: [address] [place] [address] Performed By: #### A LLBG ####[facility] LABORATORYCLIA [id number] [place] [address] [place] Glucose [Mass/Vol] 134 mg/dL High 60-105 [facility] Comment on above: Order Comment: Speci men Type: ARTERIAL BLOOD SPECIMENOrdering Facility: [facility] Address: [address] [place] [address] Performed By: #### A LLBG ####[facility] LABORATORYCLIA [id number] [address] [place] HCO3 (Bld) [Moles/Vol] 29 mmol/L High 22-26 [facility] Comment on above: Order Comment: Speci men Type: ARTERIAL BLOOD SPECIMENOrdering Facility: [facility] Address: [address] [place] [address] Performed By: #### A LLBG ####[facility] LABORATORYCLIA [id number] [address] [place] Hematocrit (Bld) [Volume fraction] 31.4 % Low 39.0-51.0 [facility] Comment on above: Order Comment: Speci men Type: ARTERIAL BLOOD SPECIMENOrdering Facility: [facility] Address: [address] [place] [address] Performed By: #### A LLBG ####[facility] LABORATORYCLIA [id number] [address] Hemoglobin (Bld) [Mass/Vol] 10.2 g/dL Low 13.0-17.0 [facility] Comment on above: Order Comment: Speci men Type: ARTERIAL BLOOD SPECIMENOrdering Facility: [facility] Address: [address] [place] [address] Performed By: #### A LLBG ####[facility] LABORATORYCLIA [id number] [address] Methemoglobin (Bld) [Mass fraction] % Normal 0.0-1.5 [facility] Comment on above: Order Comment: Speci men Type: ARTERIAL BLOOD SPECIMENOrdering Facility: [facility] Address: [address] [place] [address] Performed By: #### A LLBG ####[facility]ORATORYCLIA [id number] [address] [place] O2 THERAPY Ventilator Normal [facility] Comment on above: Order Comment: Speci men Type: ARTERIAL BLOOD SPECIMENOrdering Facility: [facility] Address: [facility] [place] [address] Performed By: #### A LLBG ####[facility]ATORYCLIA [id number] [address] Oxygen (Bld) [Partial pressure] 113 mm Hg High 85-95 [facility] Comment on above: Order Comment: Speci men Type: ARTERIAL BLOOD SPECIMENOrdering Facility: [facility] Address: [address] [place] [address] Performed By: #### A LLBG ####[facility]ORATORYCLIA [id number] [address] Oxygen adjusted to patient's actual temperature (Bld) [Partial pressure] 119 mmHg High 85-95 [facility] Comment on above: Order Comment: Speci men Type: ARTERIAL BLOOD SPECIMENOrdering Facility: [facility] Address: [address] [place] [address] Performed By: #### A LLBG ####[facility]ORATORYCLIA [id number] [address] OXYGEN SATURATION, ARTERIAL 98 % Normal 95-98 [facility] Comment on above: Order Comment: Speci men Type: ARTERIAL BLOOD SPECIMENOrdering Facility: [facility] Address: [address] [place] [address] Performed By: #### A LLBG ####[facility]ATORYCLIA [id number] [address] [place] Oxyhemoglobin (BldA) [Mass fraction] 96 % Normal 95-98 [facility] Comment on above: Order Comment: Speci men Type: ARTERIAL BLOOD SPECIMENOrdering Facility: [facility] Address: [address] [place] [address] Performed By: #### A LLBG ####[facility]ORATORYCLIA [id number] [place] [address] [place] pH (Bld) 7.41 [pH] Normal 7.35-7.45 [facility] Comment on above: Order Comment: Speci men Type: ARTERIAL BLOOD SPECIMENOrdering Facility: [facility] Address: [address] [place] [address] Performed By: #### A LLBG ####[facility]ORATORYCLIA [id number] [address] STATES OF [facility] pH adjusted to patient's actual temperature (Bld) 7.40 Normal 7.35-7.45 [facility] Comment on above: Order Comment: Speci men Type: ARTERIAL BLOOD SPECIMENOrdering Facility: [facility] Address: [address] [place] [address] Performed By: #### A LLBG ####[facility]ORATORYCLIA [id number] [address] [place] Potassium [Moles/Vol] 4.3 mmol/L Normal 3.5-5.0 [facility] Comment on above: Order Comment: Speci men Type: ARTERIAL BLOOD SPECIMENOrdering Facility: [facility] Address: [address] [place] [address] Performed By: #### A LLBG ####[facility]ORATORYCLIA [id number] [address] STATES [facility] Sodium [Moles/Vol] 144 mmol/L Normal 136-144 [facility] Comment on above: Order Comment: Speci men Type: ARTERIAL BLOOD SPECIMENOrdering Facility: [facility] Address: [address] [place] [address] Performed By: #### A LLBG ####[facility]ORATORYCLIA [id number] [address] [place] Bacteria CSF Culton 07-24-19 Bacteria identified Cx Nom (CSF) Abnormal [facility] Comment on above: Performed By: #### 6 06-4 ####[facility]ORATORYCLIA [id number] [address] [place] Basic metabolic 2000 panelon 07-23-2021 Anion gap [Moles/Vol] 12 mmol/L Normal 9-18 [facility] Comment on above: Order Comment: Speci men Type: BLOOD SPECIMENOrdering Facility: [facility] Address: [address] [place] [address] Performed By: #### 2 4321-2 ####[facility]ORATORYCLIA [id number] [place] [address] [place] Calcium [Mass/Vol] 9.7 mg/dL Normal 8.5-10.2 [facility] Comment on above: Order Comment: Speci men Type: BLOOD SPECIMENOrdering Facility: [facility] Address: [address] [place] [address] Performed By: #### 2 4321-2 ####[facility]ORATORYCLIA [id number] [place] [address] [place] Chloride [Moles/Vol] 105 mmol/L Normal 97-105 [facility] Comment on above: Order Comment: Speci men Type: BLOOD SPECIMENOrdering Facility: [facility] Address: [address] [place] [address] Performed By: #### 2 4321-2 ####[facility]ORATORYCLIA [id number] [address] [place] CO2 [Moles/Vol] 28 mmol/L Normal 22-30 [facility] Comment on above: Order Comment: Speci men Type: BLOOD SPECIMENOrdering Facility: [facility] Address: [address] [place] [address] Performed By: #### 2 4321-2 ####[facility]ORATORYCLIA [id number] [place] [address] [place] Creatinine [Mass/Vol] 0.78 mg/dL Normal 0.73-1.22 [facility] Comment on above: Order Comment: Speci men Type: BLOOD SPECIMENOrdering Facility: [facility] Address: [address] [place] [address] Performed By: #### 2 4321-2 ####[facility] [facility]ORATORYCLIA [id number] [place] [address] [place] ESTIMATED GLOMERULAR FILTRATION RATE 97 mL/min/1.73m??? Normal >=60 [facility] Comment on above: Order Comment: Shira feldman Type: BLOOD SPECIMENOrdering Facility: [facility] Address: [address] [place] [address] Result Comment: Luzmaria mated Glomerular Filtration Rate [...] Performed By: #### 2 4321-2 ####[facility]STERCLIA [id number] [place] [address] [place] Glucose [Mass/Vol] 127 mg/dL High 74-99 [facility] Comment on above: Order Comment: Shira feldman Type: BLOOD SPECIMENOrdering Facility: [facility] Address: [address] [place] [address] Result Comment: The [place] [employer] (ADA) [...] 2016.39(Suppl 1). Performed By: #### 2 4321-2 ####[facility]ORATORYCLIA [id number] [place] [id number] [place] Potassium [Moles/Vol] 4.3 mmol/L Normal 3.7-5.1 [facility] Comment on above: Order Comment: Speci men Type: BLOOD SPECIMENOrdering Facility: [facility] Address: [address] [place] [address] Performed By: #### 2 4321-2 ####[facility]ORATORYCLIA [id number] [address] [place] Sodium [Moles/Vol] 145 mmol/L High 136-144 [facility] Comment on above: Order Comment: Speci men Type: BLOOD SPECIMENOrdering Facility: [facility] Address: [address] [place] [address] Performed By: #### 2 4321-2 ####[facility]ORATORYCLIA [id number] [address] [place] Urea nitrogen [Mass/Vol] 37 mg/dL High 9-24 [facility] Comment on above: Order Comment: Speci men Type: BLOOD SPECIMENOrdering Facility: [facility] Address: [address] [place] [address] Performed By: #### 2 4321-2 ####[facility]ORATORYCLIA [id number] [address] [place] C diff Tox gens Stl Ql MEGAN+p robeon 07-23-2021 C. difficile toxin genes MEGAN+probe Ql (Stl) Negative Normal Negative for C. difficile toxin by PCR [facility] Comment on above: Order Comment: Speci men Type: STOOL SPECIMENOrdering Facility: [facility] Address: [address] [place] [address] Performed By: #### 5 4067-4 ####[facility]ORATORYCLIA [id number] [place] [address] [place] CBC W Auto Differential pane l (Bld)on 07-23-2021 Basophils (Bld) [#/Vol] 0.07 10*3/uL Normal <0.11 [facility] Comment on above: Order Comment: Speci men Type: BLOOD SPECIMENOrdering Facility: [facility] Address: [address] [place] [address] Performed By: #### 5 7021-8 ####[facility]ATORYCLIA [id number] [address] Basophils/100 WBC (Bld) 0.5 % Normal [facility] Comment on above: Order Comment: Speci men Type: BLOOD SPECIMENOrdering Facility: [facility] Address: [address] [place] [address] Performed By: #### 5 7021-8 ####[facility]ORATORYCLIA [id number] [address] [place] Differential cell count method Nom (Bld) Auto Normal [facility] Comment on above: Order Comment: Speci men Type: BLOOD SPECIMENOrdering Facility: [facility] Address: [address] [place] [address] Performed By: #### 5 7021-8 ####[facility]ORATORYCLIA [id number] [address] [place] Eosinophils (Bld) [#/Vol] 10*3/uL Normal <0.46 [facility] Comment on above: Order Comment: Speci men Type: BLOOD SPECIMENOrdering Facility: [facility] Address: [address] [place] [address] Performed By: #### 5 7021-8 ####[facility]ORATORYCLIA [id number] [address] Eosinophils/100 WBC (Bld) 0.2 % Normal [facility] Comment on above: Order Comment: Speci men Type: BLOOD SPECIMENOrdering Facility: [facility] Address: [address] [place] [address] Performed By: #### 5 7021-8 ####[facility]ORATORYCLIA [id number] [address] [place] Erythrocyte distribution width (RBC) [Ratio] 16.7 % High 11.5-15.0 [facility] Comment on above: Order Comment: Speci men Type: BLOOD SPECIMENOrdering Facility: [facility] Address: [address] [place] [address] Performed By: #### 5 7021-8 ####[facility]ORATORYCLIA [id number] [address] Hematocrit (Bld) [Volume fraction] 32.8 % Low 39.0-51.0 [facility] Comment on above: Order Comment: Speci men Type: BLOOD SPECIMENOrdering Facility: [facility] Address: [address] [place] [address] Performed By: #### 5 7021-8 ####[facility]ORATORYCLIA [id number] [address] STATES [facility] Hemoglobin (Bld) [Mass/Vol] 9.7 g/dL Low 13.0-17.0 [facility] Comment on above: Order Comment: Speci men Type: BLOOD SPECIMENOrdering Facility: [facility] Address: [address] [place] [address] Performed By: #### 5 7021-8 ####[facility]ORATORYCLIA [id number] [address] IMMATURE GRAN % 0.7 % Normal [facility] Comment on above: Order Comment: Speci men Type: BLOOD SPECIMENOrdering Facility: [facility] Address: [address] [place] [address] Performed By: #### 5 7021-8 ####[facility]ORATORYCLIA [id number] [address] IMMATURE GRAN ABS 0.09 k/uL Normal <0.10 [facility] Comment on above: Order Comment: Speci men Type: BLOOD SPECIMENOrdering Facility: [facility] Address: [address] [place] [address] Performed By: #### 5 7021-8 ####[facility]ORATORYCLIA [id number] [address] [place] Lymphocytes (Bld) [#/Vol] 1.94 10*3/uL Normal 1.00-4.00 [facility] Comment on above: Order Comment: Speci men Type: BLOOD SPECIMENOrdering Facility: [facility] Address: [address] [place] [address] Performed By: #### 5 7021-8 ####[facility]ORATORYCLIA [id number] [address] Lymphocytes/100 WBC (Bld) 14.6 % Normal [facility] Comment on above: Order Comment: Speci men Type: BLOOD SPECIMENOrdering Facility: [facility] Address: [address] [place] [address] Performed By: #### 5 7021-8 ####[facility]ORATORYCLIA [id number] [address] STATES OF [facility] MCH (RBC) [Entitic mass] 27.2 pg Normal 26.0-34.0 [facility] Comment on above: Order Comment: Speci men Type: BLOOD SPECIMENOrdering Facility: [facility] Address: [address] [place] [address] Performed By: #### 5 7021-8 ####[facility]ORATORYCLIA [id number] [address] MCHC (RBC) [Mass/Vol] 29.6 g/dL Low 30.5-36.0 [facility] Comment on above: Order Comment: Speci men Type: BLOOD SPECIMENOrdering Facility: [facility] Address: [address] [place] [address] Performed By: #### 5 7021-8 ####[facility]ORATORYCLIA [id number] [address] [place] MCV (RBC) [Entitic vol] 92.1 fL Normal 80.0-100.0 [facility] Comment on above: Order Comment: Speci men Type: BLOOD SPECIMENOrdering Facility: [facility] Address: [address] [place] [address] Performed By: #### 5 7021-8 ####[facility]ORATORYCLIA [id number] [address] [place] Monocytes (Bld) [#/Vol] 0.74 10*3/uL Normal <0.87 [facility] Comment on above: Order Comment: Speci men Type: BLOOD SPECIMENOrdering Facility: [facility] Address: [address] [place] [address] Performed By: #### 5 7021-8 ####[facility]ORATORYCLIA [id number] [address] [place] Monocytes/100 WBC (Bld) 5.6 % Normal [facility] Comment on above: Order Comment: Speci men Type: BLOOD SPECIMENOrdering Facility: [facility] Address: [address] [place] [address] Performed By: #### 5 7021-8 ####[facility]ORATORYCLIA [id number] [address] [place] Neutrophils (Bld) [#/Vol] 10.43 10*3/uL High 1.45-7.50 [facility] Comment on above: Order Comment: Speci men Type: BLOOD SPECIMENOrdering Facility: [facility] Address: [address] [place] [address] Performed By: #### 5 7021-8 ####[facility]ATORYCLIA [id number] [address] [place] Neutrophils/100 WBC (Bld) 78.4 % Normal [facility] Comment on above: Order Comment: Speci men Type: BLOOD SPECIMENOrdering Facility: [facility] Address: [address] [place] [address] Performed By: #### 5 7021-8 ####[facility]ORATORYCLIA [id number] [address] [place] Nucleated RBC (Bld) [#/Vol] 10*3/uL Normal <0.01 [facility] Comment on above: Order Comment: Speci men Type: BLOOD SPECIMENOrdering Facility: [facility] Address: [address] [place] [address] Performed By: #### 5 7021-8 ####[facility]ATORYCLIA [id number] [address] Nucleated RBC/100 WBC (Bld) [Ratio] 0.0 /100 WBC Normal [facility] Comment on above: Order Comment: Speci men Type: BLOOD SPECIMENOrdering Facility: [facility] Address: [address] [place] [address] Performed By: #### 5 7021-8 ####[facility]ORATORYCLIA [id number] [address] [place] Platelet mean volume (Bld) [Entitic vol] 11.0 fL Normal 9.0-12.7 [facility] Comment on above: Order Comment: Speci men Type: BLOOD SPECIMENOrdering Facility: [facility] Address: [address] [place] [address] Performed By: #### 5 7021-8 ####[facility]ORATORYCLIA [id number] [address] [place] Platelets (Bld) [#/Vol] 381 10*3/uL Normal 150-400 [facility] Comment on above: Order Comment: Speci men Type: BLOOD SPECIMENOrdering Facility: [facility] Address: [address] [place] [address] Performed By: #### 5 7021-8 ####[facility]ORATORYCLIA [id number] [address] [place] RBC (Bld) [#/Vol] 3.56 10*6/uL Low 4.20-6.00 [facility] Comment on above: Order Comment: Speci men Type: BLOOD SPECIMENOrdering Facility: [facility] Address: [address] [place] [address] Performed By: #### 5 7021-8 ####[facility]ORATORYCLIA [id number] [address] [place] WBC (Bld) [#/Vol] 13.29 10*3/uL High 3.70-11.00 [facility] Comment on above: Order Comment: Speci men Type: BLOOD SPECIMENOrdering Facility: [facility] Address: [address] [place] [address] Performed By: #### 5 7021-8 ####[facility]ORATORYCLIA [id number] [place] [address] [facility] [place] CONSULT PROGon 07-23-2021 CONSULT PROG Normal [facility] CONSULT PROG Normal [facility] CSF MANUAL DIFFon 07-23-2021 DIF TTL, CSF 100 cells counted Normal [facility] Comment on above: Order Comment: Speci men Type: CEREBROSPINAL FLUIDOrdering Facility: [facility] Address: [address] [place] [address] Performed By: #### L [id number], [id number], 50445-1 ####[facility]ORATORYCLIA [id number] [place] [address] [place] LYMPH%, CSF 2 % Low 50-90 [facility] Comment on above: Order Comment: Speci men Type: CEREBROSPINAL FLUIDOrdering Facility: [facility] Address: [address] [place] [address] Performed By: #### L [id number], [id number], 42687-0 ####[facility]ORATORYCLIA [id number] [place] [address] [place] MONO%, CSF 9 % Low 10-50 [facility] Comment on above: Order Comment: Speci men Type: CEREBROSPINAL FLUIDOrdering Facility: [facility] Address: [address] [place] [address] Performed By: #### L [id number], [id number], 16885-1 ####[facility]ATORYCLIA [id number] [place] [address] [place] NEUT%, CSF 89 % High 0-3 [facility] Comment on above: Order Comment: Speci men Type: CEREBROSPINAL FLUIDOrdering Facility: [facility] Address: [address] [place] [address] Performed By: #### L [id number], FOM6950, 67457-4 ####[facility]ORATORYCLIA [id number] [address] CSF PATHOLOGIST INTERP (LAB REFLEX ORDER-NO BILL)on 07-23-2021 CSF STAFF REVIEW Negative for maligna nt cells. Numerous bacterial organisms present, cocci in pairs and chains. Recommend correlation with CSF culture results. Normal [facility] Comment on above: Order Comment: Speci men Type: CEREBROSPINAL FLUIDOrdering Facility: [facility] Address: [address] [place] [address] Performed By: #### L [id number], CXW8093, 19642-8 ####[facility]ORATORYCLIA [id number] [address] Pathologist name Reviewed by Amador Stevens MD [facility] Comment on above: Order Comment: Speci men Type: CEREBROSPINAL FLUIDOrdering Facility: [facility] Address: [address] [place] [address] Performed By: #### L [id number], UWY7940, 90258-4 ####[facility]ORATORYCLIA [id number] [address] BRAIN WO IVCONon 07-24-19 CT BRAIN WO IVCON Normal [facility] Cell count panel (CSF)on Clarity (CSF) Clear Normal Clear [facility] Comment on above: Order Comment: Speci men Type: CEREBROSPINAL FLUIDOrdering Facility: [facility] Address: [address] [place] [address] Performed By: #### L [id number], RIV1840, 54480-4 ####[facility]ATORYCLIA [id number] [address] Clarity (Unsp spec) Not Indicated Normal Clear [facility] Comment on above: Order Comment: Speci men Type: CEREBROSPINAL FLUIDOrdering Facility: [facility] Address: [address] [place] [address] Performed By: #### L [id number], XAC1178, 28293-1 ####[facility]ATORYCLIA [id number] [address] Color (CSF) Colorless Normal Colorless [facility] Comment on above: Order Comment: Speci men Type: CEREBROSPINAL FLUIDOrdering Facility: [facility] Address: [address] [place] [address] Performed By: #### L [id number], YUJ9256, 12616-2 ####[facility]ATORYCLIA [id number] [address] Color (Spun CSF) Not Indicated Normal Colorless [facility] Comment on above: Order Comment: Speci men Type: CEREBROSPINAL FLUIDOrdering Facility: [facility] Address: [address] [place] [address] Performed By: #### L VL2473, EBQ9417, 38311-3 ####[facility]ATORYCLIA [id number] [address] CSF TUBE NUMBER [employer] Normal [facility] Comment on above: Order Comment: Speci men Type: CEREBROSPINAL FLUIDOrdering Facility: [facility] Address: [address] [place] [address] Performed By: #### L [id number], UZX8389, 97077-1 ####[facility]ORATORYCLIA [id number] [address] RBC Manual cnt (CSF) [#/Vol] 7 cells/uL High 0-[address] [place] [address] Comment on above: Order Comment: Speci men Type: CEREBROSPINAL FLUIDOrdering Facility: [facility] Address: [address] [place] [address] Performed By: #### L [id number], [id number], 51733-0 ####[facility]ORATORYCLIA [id number] [address] WBC Manual cnt (CSF) [#/Vol] 193 cells/uL High 0-5 [facility] Comment on above: Order Comment: Speci men Type: CEREBROSPINAL FLUIDOrdering Facility: [facility] Address: [address] [place] [address] Performed By: #### L [id number], [id number], 23791-7 ####[facility] LABORATORYCLIA [id number] [place] [address] [place] Glucose CSF-ncon Glucose (CSF) [Mass/Vol] 81 mg/dL High 40-70 [facility] Comment on above: Order Comment: Speci men Type: CEREBROSPINAL FLUIDOrdering Facility: [facility] Address: [address] [place] [address] Result Comment: Lumb ar CSF glucose values of healthy patients are approximately 60% of the plasma values and must always be compared with a concurrently measured plasma value for adequate clinical interpretation.References: 1. Glucose HK (GLUC3) [package insert V 12.0 [place]ian]. [employer], [place], [place]. September 2015. 2. Michelle Moore, Loki HGarfield (2015). Chapter 7: Glucose and Lactate. F. Irina rose al.(eds.), Cerebrospinal Fluid in Clinical Neurology. [place]: [employer]. Performed By: #### 2 342-4, 2880-3 ####[facility] LABORATORYCLIA [id number] [place] [address] [place] NURSING PROGon 07-23-2021 NURSING PROG Normal [facility] NURSING PROG Normal [facility] Prot CSF-ncon 07-23-2021 Protein (CSF) [Mass/Vol] 68 mg/dL High 15-45 [facility] Comment on above: Order Comment: Speci men Type: CEREBROSPINAL FLUIDOrdering Facility: [facility] Address: [address] [place] [address] Performed By: #### 2 342-4, 2880-3 ####[facility] LABORATORYCLIA [id number] [address] [place] Urinalysis complete panel (U )on 07-23-2021 Bilirubin Ql (U) Negative Normal Negative [facility] Comment on above: Order Comment: Speci men Type: URINE SPECIMENOrdering Facility: [facility] Address: [address] [place] [address] Performed By: #### 2 4356-8 ####[facility] LABORATORYCLIA [id number] [address] Clarity (Unsp spec) Clear Normal Clear [facility] Comment on above: Order Comment: Speci men Type: URINE SPECIMENOrdering Facility: [facility] Address: [address] [place] [address] Performed By: #### 2 4356-8 ####[facility] LABORATORYCLIA [id number] [address] Color (U) Light Yellow Normal yellow [facility] Comment on above: Order Comment: Speci men Type: URINE SPECIMENOrdering Facility: [facility] Address: [address] [place] [address] Performed By: #### 2 4356-8 ####[facility] LABORATORYCLIA [id number] [address] OF [facility] Glucose Test strip (U) [Mass/Vol] Negative Normal Negative [facility] Comment on above: Order Comment: Speci men Type: URINE SPECIMENOrdering Facility: [facility] Address: [address] [place] [address] Performed By: #### 2 4356-8 ####[facility] LABORATORYCLIA [id number] [address] [place] Hemoglobin Ql (U) Negative Normal Negative [facility] Comment on above: Order Comment: Speci men Type: URINE SPECIMENOrdering Facility: [facility] Address: [address] [place] [address] Performed By: #### 2 4356-8 ####[facility] LABORATORYCLIA [id number] [address] Ketones Ql (U) Negative Normal Negative [facility] Comment on above: Order Comment: Speci men Type: URINE SPECIMENOrdering Facility: [facility] Address: [address] [place] [address] Performed By: #### 2 4356-8 ####[facility] LABORATORYCLIA [id number] [address] Leukocyte esterase Test strip Ql (U) Negative Normal Negative [facility] Comment on above: Order Comment: Speci men Type: URINE SPECIMENOrdering Facility: [facility] Address: [address] [place] [address] Performed By: #### 2 4356-8 ####[facility]ORATORYCLIA [id number] [address] Nitrite Ql (U) Negative Normal Negative [facility] Comment on above: Order Comment: Speci men Type: URINE SPECIMENOrdering Facility: [facility] Address: [address] [place] [address] Performed By: #### 2 4356-8 ####[facility]ORATORYCLIA [id number] [address] pH (U) 6.0 [pH] Normal 5.0-8.0 [facility] Comment on above: Order Comment: Speci men Type: URINE SPECIMENOrdering Facility: [facility] Address: [address] [place] [address] Performed By: #### 2 4356-8 ####[facility]ORATORYCLIA [id number] [address] Protein (U) [Mass/Vol] 1+ Abnormal Negative [facility] Comment on above: Order Comment: Speci men Type: URINE SPECIMENOrdering Facility: [facility] Address: [address] [place] [address] Performed By: #### 2 4356-8 ####[facility]ORATORYCLIA [id number] [address] RBC LM.HPF (Urine sed) [#/Area] 0-3 /HPF Normal 0-3 /HPF [facility] Comment on above: Order Comment: Speci men Type: URINE SPECIMENOrdering Facility: [facility] Address: [address] [address] Performed By: #### 2 4356-8 ####[facility]ATORYCLIA [id number] [address] Specific gravity (U) [Rel density] 1.018 Normal 1.005-1.030 [facility] Comment on above: Order Comment: Speci men Type: URINE SPECIMENOrdering Facility: [facility] Address: [address] [place] [address] Performed By: #### 2 4356-8 ####[facility]ATORYCLIA [id number] [address] Urobilinogen Ql (U) Normal Normal Negative [facility] Comment on above: Order Comment: Speci men Type: URINE SPECIMENOrdering Facility: [facility] Address: [address] [place] [address] Performed By: #### 2 4356-8 ####[facility]ATORYCLIA [id number] [address] WBC LM.HPF (Urine sed) [#/Area] 0-5 /HPF Normal 0-5 /HPF [facility] Comment on above: Order Comment: Speci men Type: URINE SPECIMENOrdering Facility: [facility] Address: [address] [place] [address] Performed By: #### 2 4356-8 ####[facility]ORATORYCLIA [id number] [address] [place] Vancomycin random [Mass/Vol] on 07-23-2021 Vancomycin [Mass/Vol] 12.9 ug/mL Normal 10.0-20.0 [facility] Comment on above: Order Comment: Speci men Type: BLOOD SPECIMENOrdering Facility: [facility] Address: [address] [place] [address] Result Comment: Refe rence ranges and high/low indicator flags are provided as general guidelines only. The treating physician must determine appropriate target levels/dosing based on the specific clinical situation. Performed By: #### 4 091-5 ####[facility]ORATORYCLIA [id number] [address] XR CHEST 1V FRONTALon 2021 XR CHEST 1V FRONTAL Normal [facility] XR CHEST 1V FRONTAL Normal [facility] aPTT PPPon 07-23-2021 aPTT Coag (PPP) [Time] 32.3 s Normal 23.0-32.4 [facility] Comment on above: Order Comment: Speci men Type: BLOOD SPECIMENOrdering Facility: [facility] Address: [address] [place] [address] Performed By: #### 1 4979-9 ####[facility]ORATORYCLIA [id number] [address] aPTT Coag (PPP) [Time] 57.9 s High 23.0-32.4 [facility] Comment on above: Order Comment: Speci men Type: BLOOD SPECIMENOrdering Facility: [facility] Address: [address] [place] [address] Performed By: #### 1 4979-9 ####[facility]ORATORYCLIA [id number] [address] aPTT Coag (PPP) [Time] 46.3 s High 23.0-32.4 [facility] Comment on above: Order Comment: Speci men Type: BLOOD SPECIMENOrdering Facility: [facility] Address: [address] [place] [address] Performed By: #### 1 4979-9 ####[facility]ORATORYCLIA [id number] [address] Basic metabolic 2000 panelon 07-22-2021 Anion gap [Moles/Vol] 8 mmol/L Low - [facility] Comment on above: Order Comment: Speci men Type: BLOOD SPECIMENOrdering Facility: [facility] Address: [address] [place] [address] Performed By: #### 2 4321-2 ####[facility]ORATORYCLIA [id number] [place] [address] [place] Calcium [Mass/Vol] 9.5 mg/dL Normal 8.5-10.2 [facility] Comment on above: Order Comment: Speci men Type: BLOOD SPECIMENOrdering Facility: [facility] Address: [address] [place] [address] Performed By: #### 2 4321-2 ####[facility]ORATORYCLIA [id number] [place] [address] [place] Chloride [Moles/Vol] 105 mmol/L Normal 97-105 [facility] Comment on above: Order Comment: Speci men Type: BLOOD SPECIMENOrdering Facility: [facility] Address: [address] [place] [address] Performed By: #### 2 4321-2 ####[facility]ORATORYCLIA [id number] [address] [place] CO2 [Moles/Vol] 32 mmol/L High 22-30 [facility] Comment on above: Order Comment: Speci men Type: BLOOD SPECIMENOrdering Facility: [facility] Address: [address] [place] [address] Performed By: #### 2 4321-2 ####[facility]ORATORYCLIA [id number] [address] [place] Creatinine [Mass/Vol] 0.75 mg/dL Normal 0.73-1.22 [facility] Comment on above: Order Comment: Speci men Type: BLOOD SPECIMENOrdering Facility: [facility] Address: [address] [place] [address] Performed By: #### 2 4321-2 ####[facility]ORATORYCLIA [id number] [address] ESTIMATED GLOMERULAR FILTRATION RATE 98 mL/min/1.73m??? Normal >=60 [facility] Comment on above: Order Comment: Speci men Type: BLOOD SPECIMENOrdering Facility: [facility] Address: [address] [place], [place] [address] Result Comment: Luzmaria mated Glomerular Filtration Rate [...] actual GFR. Performed By: #### 2 4321-2 ####[facility]ORATORYCLIA [id number] [place] [address] [place] Glucose [Mass/Vol] 128 mg/dL High 74-99 [facility] Comment on above: Order Comment: Shira feldamn Type: BLOOD SPECIMENOrdering Facility: [facility] Address: [address] [place] [address] Result Comment: The [place] [employer] (ADA) [...] 2016.39(Suppl 1). Performed By: #### 2 4321-2 ####[facility]ORATORYCLIA [id number] [place] [address] [place] Potassium [Moles/Vol] 3.7 mmol/L Normal 3.7-5.1 [facility] Comment on above: Order Comment: Shira feldman Type: BLOOD SPECIMENOrdering Facility: [facility] Address: [address] [id number] Performed By: #### 2 4321-2 ####[facility]ORATORYCLIA [id number] [place] [address] [place] Sodium [Moles/Vol] 145 mmol/L High 136-144 [facility] Comment on above: Order Comment: Speci men Type: BLOOD SPECIMENOrdering Facility: [facility] Address: [address] [place] [address] Performed By: #### 2 4321-2 ####[facility]ORATORYCLIA [id number] [place] [address] [place] Urea nitrogen [Mass/Vol] 39 mg/dL High 9-24 [facility] Comment on above: Order Comment: Speci men Type: BLOOD SPECIMENOrdering Facility: [facility] Address: [address] [place] [address] Performed By: #### 2 4321-2 ####[facility]ORATORYCLIA [id number] [address] [place] CASE MANAGEMon 07-22-2021 CASE MANAGEM Normal [facility] CBC W Auto Differential pane l (Bld)on 07-22-2021 Basophils (Bld) [#/Vol] 0.06 10*3/uL Normal <0.11 [facility] Comment on above: Order Comment: Speci men Type: BLOOD SPECIMENOrdering Facility: [facility] Address: [address] [place] [address] Performed By: #### 5 7021-8 ####[facility]ORATORYCLIA [id number] [address] [place] Basophils/100 WBC (Bld) 0.5 % Normal [facility] Comment on above: Order Comment: Speci men Type: BLOOD SPECIMENOrdering Facility: [facility] Address: [address] [place] [address] Performed By: #### 5 7021-8 ####[facility]ORATORYCLIA [id number] [address] [place] Differential cell count method Nom (Bld) Auto Normal [facility] Comment on above: Order Comment: Speci men Type: BLOOD SPECIMENOrdering Facility: [facility] Address: [address] [address] Performed By: #### 5 7021-8 ####[facility]ORATORYCLIA [id number] [address] [place] Eosinophils (Bld) [#/Vol] 0.44 10*3/uL Normal <0.46 [facility] Comment on above: Order Comment: Speci men Type: BLOOD SPECIMENOrdering Facility: [facility] Address: [address] [address] Performed By: #### 5 7021-8 ####[facility]ORATORYCLIA [id number] [address] Eosinophils/100 WBC (Bld) 3.9 % Normal [facility] Comment on above: Order Comment: Speci men Type: BLOOD SPECIMENOrdering Facility: [facility] Address: [address] [address] Performed By: #### 5 7021-8 ####[facility]ORATORYCLIA [id number] [address] Erythrocyte distribution width (RBC) [Ratio] 17.0 % High 11.5-15.0 [facility] Comment on above: Order Comment: Speci men Type: BLOOD SPECIMENOrdering Facility: [facility] Address: [address] [address] Performed By: #### 5 7021-8 ####[facility]ORATORYCLIA [id number] [address] [place] Hematocrit (Bld) [Volume fraction] 32.0 % Low 39.0-51.0 [facility] Comment on above: Order Comment: Speci men Type: BLOOD SPECIMENOrdering Facility: [facility] Address: [facility] [address] Performed By: #### 5 7021-8 ####[facility]ORATORYCLIA [id number] [address] [place] Hemoglobin (Bld) [Mass/Vol] 9.3 g/dL Low 13.0-17.0 [facility] Comment on above: Order Comment: Speci men Type: BLOOD SPECIMENOrdering Facility: [facility] Address: [address] [place] [address] Performed By: #### 5 7021-8 ####[facility]ORATORYCLIA [id number] [address] IMMATURE GRAN % 0.5 % Normal [facility] Comment on above: Order Comment: Speci men Type: BLOOD SPECIMENOrdering Facility: [facility] Address: [address] [place] [address] Performed By: #### 5 7021-8 ####[facility]ORATORYCLIA [id number] [address] IMMATURE GRAN ABS 0.06 k/uL Normal <0.10 [facility] Comment on above: Order Comment: Speci men Type: BLOOD SPECIMENOrdering Facility: [facility] Address: [address] [place] [address] Performed By: #### 5 7021-8 ####[facility]ORATORYCLIA [id number] [address] Lymphocytes (Bld) [#/Vol] 1.83 10*3/uL Normal 1.00-4.00 [facility] Comment on above: Order Comment: Speci men Type: BLOOD SPECIMENOrdering Facility: [facility] Address: [address] [place] [address] Performed By: #### 5 7021-8 ####[facility]ORATORYCLIA [id number] [address] Lymphocytes/100 WBC (Bld) 16.1 % Normal [facility] Comment on above: Order Comment: Speci men Type: BLOOD SPECIMENOrdering Facility: [facility] Address: [address] [place] [address] Performed By: #### 5 7021-8 ####[facility] LABORATORYCLIA [id number] [place] [address] [place] MCH (RBC) [Entitic mass] 27.0 pg Normal 26.0-34.0 [facility] Comment on above: Order Comment: Speci men Type: BLOOD SPECIMENOrdering Facility: [facility] Address: [address] [place] [address] Performed By: #### 5 7021-8 ####[facility]ORATORYCLIA [id number] [address] [place] MCHC (RBC) [Mass/Vol] 29.1 g/dL Low 30.5-36.0 [facility] Comment on above: Order Comment: Speci men Type: BLOOD SPECIMENOrdering Facility: [facility] Address: [address] [place] [address] Performed By: #### 5 7021-8 ####[facility]ORATORYCLIA [id number] [address] STATES OF [facility] MCV (RBC) [Entitic vol] 92.8 fL Normal 80.0-100.0 [facility] Comment on above: Order Comment: Speci men Type: BLOOD SPECIMENOrdering Facility: [facility] Address: [address] [place] [address] Performed By: #### 5 7021-8 ####[facility]ORATORYCLIA [id number] [address] STATES OF [facility] Monocytes (Bld) [#/Vol] 0.87 10*3/uL High <0.87 [facility] Comment on above: Order Comment: Speci men Type: BLOOD SPECIMENOrdering Facility: [facility] Address: [address] [place] [address] Performed By: #### 5 7021-8 ####[facility]ORATORYCLIA [id number] [address] Monocytes/100 WBC (Bld) 7.6 % Normal [facility] Comment on above: Order Comment: Speci men Type: BLOOD SPECIMENOrdering Facility: [facility] Address: [address] [place] [address] Performed By: #### 5 7021-8 ####[facility]ORATORYCLIA [id number] [address] [place] Neutrophils (Bld) [#/Vol] 8.12 10*3/uL High 1.45-7.50 [facility] Comment on above: Order Comment: Speci men Type: BLOOD SPECIMENOrdering Facility: [facility] Address: [address] [place] [address] Performed By: #### 5 7021-8 ####[facility]ORATORYCLIA [id number] [address] Neutrophils/100 WBC (Bld) 71.4 % Normal [facility] Comment on above: Order Comment: Speci men Type: BLOOD SPECIMENOrdering Facility: [facility] Address: [address] [place] [address] Performed By: #### 5 7021-8 ####[facility]ORATORYCLIA [id number] [address] Nucleated RBC (Bld) [#/Vol] 10*3/uL Normal <0.01 [facility] Comment on above: Order Comment: Speci men Type: BLOOD SPECIMENOrdering Facility: [facility] Address: [address] [place] [address] Performed By: #### 5 7021-8 ####[facility]ORATORYCLIA [id number] [address] Nucleated RBC/100 WBC (Bld) [Ratio] 0.0 /100 WBC Normal [facility] Comment on above: Order Comment: Speci men Type: BLOOD SPECIMENOrdering Facility: [facility] Address: [address] [place] [address] Performed By: #### 5 7021-8 ####[facility]ORATORYCLIA [id number] [address] Platelet mean volume (Bld) [Entitic vol] 10.8 fL Normal 9.0-12.7 [facility] Comment on above: Order Comment: Speci men Type: BLOOD SPECIMENOrdering Facility: [facility] Address: [address] [place] [address] Performed By: #### 5 7021-8 ####[facility]ORATORYCLIA [id number] [address] OF [facility] Platelets (Bld) [#/Vol] 362 10*3/uL Normal 150-400 [facility] Comment on above: Order Comment: Speci men Type: BLOOD SPECIMENOrdering Facility: [facility] Address: [address] [place] [address] Performed By: #### 5 7021-8 ####[facility] LABORATORYCLIA [id number] [place] [address] [place] RBC (Bld) [#/Vol] 3.45 10*6/uL Low 4.20-6.00 [facility] Comment on above: Order Comment: Speci men Type: BLOOD SPECIMENOrdering Facility: [facility] Address: [address] [place] [address] Performed By: #### 5 7021-8 ####[facility]ORATORYCLIA [id number] [address] [place] WBC (Bld) [#/Vol] 11.38 10*3/uL High 3.70-11.00 [facility] Comment on above: Order Comment: Speci men Type: BLOOD SPECIMENOrdering Facility: [facility] Address: [address] [place] [address] Performed By: #### 5 7021-8 ####[facility]ORATORYCLIA [id number] [address] [place] Magnesium SerPl-mCncon 07-22 Magnesium [Mass/Vol] 2.3 mg/dL Normal 1.7-2.3 [facility] Comment on above: Order Comment: Speci men Type: BLOOD SPECIMENOrdering Facility: [facility] Address: [address] [place] [address] Performed By: #### 1 9123-9, 2777-1, 05046-1 ####[facility]ORATORYCLIA [id number] [address] NT-proBNP SerPl-mCncon 07-22 Natriuretic peptide.B prohormone N-Terminal [Mass/Vol] 328 pg/mL High <125 [facility] Comment on above: Order Comment: Speci men Type: BLOOD SPECIMENOrdering Facility: [facility] Address: [address] [place] [address] Performed By: #### 1 9123-9, 2777-1, 47918-6 ####[facility]ORATORYCLIA [id number] [address] [place] NURSING PROGon 07-22-2021 NURSING PROG Normal [facility] NUTRITIONon 07-22-2021 NUTRITION Normal [facility] Phosphate SerPl-mCncon 07-22 Phosphate [Mass/Vol] 3.5 mg/dL Normal 2.7-4.8 [facility] Comment on above: Order Comment: Speci men Type: BLOOD SPECIMENOrdering Facility: [facility] Address: [address] [place] [address] Performed By: #### 1 9123-9, 2777-1, 81892-6 ####[facility]ORATORYCLIA [id number] [address] [place] THERAPY NTon 07-22-2021 THERAPY NT Normal [facility] THERAPY NT Normal [facility] aPTT PPPon 07-22-2021 aPTT Coag (PPP) [Time] 50.1 s High 23.0-32.4 [facility] Comment on above: Order Comment: Speci men Type: BLOOD SPECIMENOrdering Facility: [facility] Address: [address] [place] [address] Performed By: #### 1 4979-9 ####[facility]ORATORYCLIA [id number] [place] [address] [place] ALLIED HEALTHon 07-21-2021 ALLIED HEALTH Normal [facility] Bacteria Spec Resp Culton Bacteria identified Respiratory culture Nom (Unsp spec) Abnormal [facility] Comment on above: Performed By: #### 3 2355-0 ####[facility]ORATORYCLIA [id number] [place] [address] [place] Basic metabolic 2000 panelon 07-21-2021 Anion gap [Moles/Vol] 9 mmol/L Normal 9-18 [facility] Comment on above: Order Comment: Speci men Type: BLOOD SPECIMENOrdering Facility: [facility] Address: [address] [place] [address] Performed By: #### 1 9123-9, 2777-1, 87242-1 ####[facility] LABORATORYCLIA [id number] [place] [address] [place] Calcium [Mass/Vol] 9.9 mg/dL Normal 8.5-10.2 [facility] Comment on above: Order Comment: Speci men Type: BLOOD SPECIMENOrdering Facility: [facility] Address: [address] [place] [address] Performed By: #### 1 9123-9, 2771, 34356-5 ####[facility] LABORATORYCLIA [id number] [place] [address] [place] Chloride [Moles/Vol] 103 mmol/L Normal 97-105 [facility] Comment on above: Order Comment: Speci men Type: BLOOD SPECIMENOrdering Facility: [facility] Address: [address] [address] Performed By: #### 1 9123-9, 2771, 93251-4 ####[facility] LABORATORYCLIA [id number] [place] [address] [place] CO2 [Moles/Vol] 33 mmol/L High 22-30 [facility] Comment on above: Order Comment: Speci men Type: BLOOD SPECIMENOrdering Facility: [facility] Address: [address] [place] [place] [address] Performed By: #### 1 9123-9, 2777-1, 43154-9 ####[facility] HOSPITALIA [id number] [place] [address] [place] Creatinine [Mass/Vol] 0.80 mg/dL Normal 0.73-1.22 [facility] Comment on above: Order Comment: Shira feldman Type: BLOOD SPECIMENOrdering Facility: [facility] Address: [address] [place], [place] [id number] Performed By: #### 1 9123-9, 2777-1, 85619-3 ####[facility] HOSPITALIA [id number] [place] [address] [place] ESTIMATED GLOMERULAR FILTRATION RATE 96 mL/min/1.73m??? Normal >=60 [facility] Comment on above: Order Comment: Shira feldman Type: BLOOD SPECIMENOrdering Facility: [facility] Address: [address] [place] [address] Result Comment: Luzmaria mated Glomerular Filtration Rate [...] GFR. Performed By: #### 1 9123-9, 2777-1, 45616-5 ####[facility] HOSPITALIA [id number] [place] [address] [place] Glucose [Mass/Vol] 148 mg/dL High 74-99 [facility] Comment on above: Order Comment: Shira feldman Type: BLOOD SPECIMENOrdering Facility: [facility] Address: [address] [phone] Result Comment: The [place] [employer] (ADA) [...] 1). Performed By: #### 1 9123-9, 2777-1, 17468-5 ####[facility] LABORATORYCLIA [id number] [place] [address] [place] [facility] Potassium [Moles/Vol] 4.1 mmol/L Normal 3.7-5.1 [facility] Comment on above: Order Comment: Shira feldman Type: BLOOD SPECIMENOrdering Facility: [facility] Address: [address] [place] [address] Performed By: #### 1 9123-9, 2777-, 56449-8 ####[facility] [id number] [address] Sodium [Moles/Vol] 145 mmol/L High 136-144 [facility] Comment on above: Order Comment: Shira feldman Type: BLOOD SPECIMENOrdering Facility: [facility] Address: [address] [place] [address] Performed By: #### 1 9123-9, 2777-1, 43067-5 ####[facility] M[facility]STERCLIA [id number] [address] STATES [facility] Urea nitrogen [Mass/Vol] 40 mg/dL High 9-24 [facility] Comment on above: Order Comment: Shira feldman Type: BLOOD SPECIMENOrdering Facility: [facility] Address: [address] [place] [address] Performed By: #### 1 9123-9, 2777-, 12842-8 ####[facility] LABORATORYCLIA [id number] [address] [place] CBC W Auto Differential pane l (Bld)on 07-21-2021 Basophils (Bld) [#/Vol] 0.06 10*3/uL Normal <0.11 [facility] Comment on above: Order Comment: Speci men Type: BLOOD SPECIMENOrdering Facility: [facility] Address: [address] [place] [address] Performed By: #### 5 7021-8 ####[facility]ATORYCLIA [id number] [address] STATES [facility] Basophils/100 WBC (Bld) 0.4 % Normal [facility] Comment on above: Order Comment: Speci men Type: BLOOD SPECIMENOrdering Facility: [facility] Address: [address] [place] [address] Performed By: #### 5 7021-8 ####[facility]ORATORYCLIA [id number] [address] Differential cell count method Nom (Bld) Auto Normal [facility] Comment on above: Order Comment: Speci men Type: BLOOD SPECIMENOrdering Facility: [facility] Address: [address] [place] [address] Performed By: #### 5 7021-8 ####[facility]ORATORYCLIA [id number] [address] Eosinophils (Bld) [#/Vol] 0.04 10*3/uL Normal <0.46 [facility] Comment on above: Order Comment: Speci men Type: BLOOD SPECIMENOrdering Facility: [facility] Address: [address] [place] [address] Performed By: #### 5 7021-8 ####[facility]ATORYCLIA [id number] [address] Eosinophils/100 WBC (Bld) 0.3 % Normal [facility] Comment on above: Order Comment: Speci men Type: BLOOD SPECIMENOrdering Facility: [facility] Address: [address] [place] [address] Performed By: #### 5 7021-8 ####[facility]ATORYCLIA [id number] [address] [place] Erythrocyte distribution width (RBC) [Ratio] 17.0 % High 11.5-15.0 [facility] Comment on above: Order Comment: Speci men Type: BLOOD SPECIMENOrdering Facility: [facility] Address: [address] [place] [address] Performed By: #### 5 7021-8 ####[facility] LABORATORYCLIA [id number] [address] Hematocrit (Bld) [Volume fraction] 33.1 % Low 39.0-51.0 [facility] Comment on above: Order Comment: Speci men Type: BLOOD SPECIMENOrdering Facility: [facility] Address: [address] [place] [address] Performed By: #### 5 7021-8 ####[facility] LABORATORYCLIA [id number] [address] Hemoglobin (Bld) [Mass/Vol] 9.7 g/dL Low 13.0-17.0 [facility] Comment on above: Order Comment: Speci men Type: BLOOD SPECIMENOrdering Facility: [facility] Address: [address] [place] [address] Performed By: #### 5 7021-8 ####[facility]ORATORYCLIA [id number] [address] IMMATURE GRAN % 0.5 % Normal [facility] Comment on above: Order Comment: Speci men Type: BLOOD SPECIMENOrdering Facility: [facility] Address: [address] [place] [address] Performed By: #### 5 7021-8 ####[facility] LABORATORYCLIA [id number] [address] IMMATURE GRAN ABS 0.07 k/uL Normal <0.10 [facility] Comment on above: Order Comment: Speci men Type: BLOOD SPECIMENOrdering Facility: [facility] Address: [address] [place] [address] Performed By: #### 5 7021-8 ####[facility]ORATORYCLIA [id number] [address] [place] Lymphocytes (Bld) [#/Vol] 1.99 10*3/uL Normal 1.00-4.00 [facility] Comment on above: Order Comment: Speci men Type: BLOOD SPECIMENOrdering Facility: [facility] Address: [address] [place] [address] Performed By: #### 5 7021-8 ####[facility]ORATORYCLIA [id number] [address] Lymphocytes/100 WBC (Bld) 13.4 % Normal [facility] Comment on above: Order Comment: Speci men Type: BLOOD SPECIMENOrdering Facility: [facility] Address: [address] [place] [address] Performed By: #### 5 7021-8 ####[facility] LABORATORYCLIA [id number] [address] STATES [facility] MCH (RBC) [Entitic mass] 27.2 pg Normal 26.0-34.0 [facility] Comment on above: Order Comment: Speci men Type: BLOOD SPECIMENOrdering Facility: [facility] Address: [address] [place] [address] Performed By: #### 5 7021-8 ####[facility]ORATORYCLIA [id number] [address] [place] MCHC (RBC) [Mass/Vol] 29.3 g/dL Low 30.5-36.0 [facility] Comment on above: Order Comment: Speci men Type: BLOOD SPECIMENOrdering Facility: [facility] Address: [address] [place] [address] Performed By: #### 5 7021-8 ####[facility]ORATORYCLIA [id number] [address] STATES OF [facility] MCV (RBC) [Entitic vol] 92.7 fL Normal 80.0-100.0 [facility] Comment on above: Order Comment: Speci men Type: BLOOD SPECIMENOrdering Facility: [facility] Address: [address] [place] [address] Performed By: #### 5 7021-8 ####[facility]ATORYCLIA [id number] [place] [address] [place] Monocytes (Bld) [#/Vol] 1.10 10*3/uL High <0.87 [facility] Comment on above: Order Comment: Speci men Type: BLOOD SPECIMENOrdering Facility: [facility] Address: [address] [place] [address] Performed By: #### 5 7021-8 ####[facility]ORATORYCLIA [id number] [address] [place] Monocytes/100 WBC (Bld) 7.4 % Normal [facility] Comment on above: Order Comment: Speci men Type: BLOOD SPECIMENOrdering Facility: [facility] Address: [address] [place] [address] Performed By: #### 5 7021-8 ####[facility] LABORATORYCLIA [id number] [place] [address] [place] Neutrophils (Bld) [#/Vol] 11.61 10*3/uL High 1.45-7.50 [facility] Comment on above: Order Comment: Speci men Type: BLOOD SPECIMENOrdering Facility: [facility] Address: [address] [place] [address] Performed By: #### 5 7021-8 ####[facility]ATORYCLIA [id number] [address] [place] Neutrophils/100 WBC (Bld) 78.0 % Normal [facility] Comment on above: Order Comment: Speci men Type: BLOOD SPECIMENOrdering Facility: [facility] Address: [address] [place] [address] Performed By: #### 5 7021-8 ####[facility]ATORYCLIA [id number] [place] [address] [place] Nucleated RBC (Bld) [#/Vol] 10*3/uL Normal <0.01 [facility] Comment on above: Order Comment: Speci men Type: BLOOD SPECIMENOrdering Facility: [facility] Address: [address] [place] [address] Performed By: #### 5 7021-8 ####[facility]ORATORYCLIA [id number] [address] STATES [place] [facility] Nucleated RBC/100 WBC (Bld) [Ratio] 0.0 /100 WBC Normal [facility] Comment on above: Order Comment: Speci men Type: BLOOD SPECIMENOrdering Facility: [facility] Address: [address] [place] [address] Performed By: #### 5 7021-8 ####[facility]ORATORYCLIA [id number] [address] [place] Platelet mean volume (Bld) [Entitic vol] 10.4 fL Normal 9.0-12.7 [facility] Comment on above: Order Comment: Speci men Type: BLOOD SPECIMENOrdering Facility: [facility] Address: [address] [place], [place] [phone] Performed By: #### 5 7021-8 ####[facility]ORATORYCLIA [id number] [address] [place] Platelets (Bld) [#/Vol] 396 10*3/uL Normal 150-400 [facility] Comment on above: Order Comment: Speci men Type: BLOOD SPECIMENOrdering Facility: [facility] Address: [address] [place], [place] [phone] Performed By: #### 5 7021-8 ####[facility]ORATORYCLIA [id number] [address] [place] RBC (Bld) [#/Vol] 3.57 10*6/uL Low 4.20-6.00 [facility] Comment on above: Order Comment: Speci men Type: BLOOD SPECIMENOrdering Facility: [facility] Address: [address] [place], [place] [phone] Performed By: #### 5 7021-8 ####[facility]ORATORYCLIA [id number] [address] [place] WBC (Bld) [#/Vol] 14.87 10*3/uL High 3.70-11.00 [facility] Comment on above: Order Comment: Speci men Type: BLOOD SPECIMENOrdering Facility: [facility] Address: [address] [place] [address] Performed By: #### 5 7021-8 ####[facility]ATORYCLIA [id number] [address] Gas and Carbon monoxide pane l (BldV)on 07-21-2021 Base excess Calc (BldV) [Moles/Vol] 7 mmol/L High 0-2 [facility] Comment on above: Order Comment: Speci men Type: VENOUS BLOOD SPECIMENOrdering Facility: [facility] Address: [address] [place] [address] Performed By: #### 2 4344-4 ####[facility]ORATORYCLIA [id number] [address] Body temperature 98.6 [degF] Normal [facility] Comment on above: Order Comment: Speci men Type: VENOUS BLOOD SPECIMENOrdering Facility: [facility] Address: [address] [place] [address] Performed By: #### 2 4344-4 ####[facility]ORATORYCLIA [id number] [address] [place] [facility] CALCIUM IONIZED, PH CORRECTED 1.21 mmol/L Normal 1.08-1.30 [facility] Comment on above: Order Comment: Speci men Type: VENOUS BLOOD SPECIMENOrdering Facility: [facility] Address: [address] [place] [address] Performed By: #### 2 4344-4 ####[facility]ORATORYCLIA [id number] [address] Calcium.ionized (BldV) [Mass/Vol] 1.23 mmol/L Normal 1.08-1.30 [facility] Comment on above: Order Comment: Speci men Type: VENOUS BLOOD SPECIMENOrdering Facility: [facility] Address: [address] [place] [address] Performed By: #### 2 4344-4 ####[facility]ORATORYCLIA [id number] [address] [place] Carboxyhemoglobin (BldV) [Mass fraction] 2.3 % High 0.0-2.0 [facility] Comment on above: Order Comment: Speci men Type: VENOUS BLOOD SPECIMENOrdering Facility: [facility] Address: [address] [place] [address] Result Comment: Carb oxyhemoglobin Reference Range for Smokers: 2.0-8.0% Performed By: #### 2 4344-4 ####[facility]ORATORYCLIA [id number] [address] [place] CO2 (BldV) [Partial pressure] 58 mm[Hg] High 42-55 [facility] Comment on above: Order Comment: Speci men Type: VENOUS BLOOD SPECIMENOrdering Facility: [facility] Address: [address] [place] [address] Performed By: #### 2 4344-4 ####[facility]ORATORYCLIA [id number] [address] [place] CO2 [Moles/Vol] 31 mmol/L High 25-29 [facility] Comment on above: Order Comment: Speci men Type: VENOUS BLOOD SPECIMENOrdering Facility: [facility] Address: [address] [place] [address] Performed By: #### 2 4344-4 ####[facility]ORATORYCLIA [id number] [address] [place] Glucose [Mass/Vol] 146 mg/dL High 60-105 [facility] Comment on above: Order Comment: Speci men Type: VENOUS BLOOD SPECIMENOrdering Facility: [facility] Address: [address] [place] [address] Performed By: #### 2 4344-4 ####[facility]ORATORYCLIA [id number] [address] [place] HCO3 (Bld) [Moles/Vol] 33 mmol/L High 24-28 [facility] Comment on above: Order Comment: Speci men Type: VENOUS BLOOD SPECIMENOrdering Facility: [facility] Address: [address] [place] [address] Performed By: #### 2 4344-4 ####[facility]ORATORYCLIA [id number] [address] [place] Hematocrit (Bld) [Volume fraction] 30.1 % Low 39.0-51.0 [facility] Comment on above: Order Comment: Speci men Type: VENOUS BLOOD SPECIMENOrdering Facility: [facility] Address: [address] [place] [address] Performed By: #### 2 4344-4 ####[facility]ORATORYCLIA [id number] [address] Hemoglobin (Bld) [Mass/Vol] 9.7 g/dL Low 13.0-17.0 [facility] Comment on above: Order Comment: Speci men Type: VENOUS BLOOD SPECIMENOrdering Facility: [facility] Address: [address] [place] [address] Performed By: #### 2 4344-4 ####[facility]ORATORYCLIA [id number] [address] Methemoglobin (Bld) [Mass fraction] % Normal 0.0-1.5 [facility] Comment on above: Order Comment: Speci men Type: VENOUS BLOOD SPECIMENOrdering Facility: [facility] Address: [address] [place] [address] Performed By: #### 2 4344-4 ####[facility]ORATORYCLIA [id number] [address] O2 THERAPY NC = Nasal Cannula Normal [facility] Comment on above: Order Comment: Speci men Type: VENOUS BLOOD SPECIMENOrdering Facility: [facility] Address: [address] [address] Performed By: #### 2 4344-4 ####[facility]ATORYCLIA [id number] [address] [place] Oxygen (BldV) [Partial pressure] 64 mm[Hg] High 35-45 [facility] Comment on above: Order Comment: Speci men Type: VENOUS BLOOD SPECIMENOrdering Facility: [facility] Address: [address] [place] [address] Performed By: #### 2 4344-4 ####[facility]ORATORYCLIA [id number] [address] [place] Oxygen saturation in Blood 90 % High 60-85 [facility] Comment on above: Order Comment: Speci men Type: VENOUS BLOOD SPECIMENOrdering Facility: [facility] Address: [address] [place] [address] Performed By: #### 2 4344-4 ####[facility]ORATORYCLIA [id number] [address] [place] Oxyhemoglobin (BldV) [Mass fraction] 87 % High 60-85 [facility] Comment on above: Order Comment: Speci men Type: VENOUS BLOOD SPECIMENOrdering Facility: [facility] Address: [address] [place] [address] Performed By: #### 2 4344-4 ####[facility]ORYCLIA [id number] [address] [place] pH (BldV) 7.38 [pH] Normal 7.32-7.42 [facility] Comment on above: Order Comment: Speci men Type: VENOUS BLOOD SPECIMENOrdering Facility: [facility] Address: [address] [place] [address] Performed By: #### 2 4344-4 ####[facility]ORATORYCLIA [id number] [address] [place] Potassium [Moles/Vol] 3.8 mmol/L Normal 3.5-5.0 [facility] Comment on above: Order Comment: Speci men Type: VENOUS BLOOD SPECIMENOrdering Facility: [facility] Address: [address] [place] [address] Performed By: #### 2 4344-4 ####[facility]ORATORYCLIA [id number] [place] [address] [place] Sodium [Moles/Vol] 145 mmol/L High 136-144 [facility] Comment on above: Order Comment: Speci men Type: VENOUS BLOOD SPECIMENOrdering Facility: [facility] Address: [address] [place] [address] Performed By: #### 2 4344-4 ####[facility]ORATORYCLIA [id number] [place] [address] [place] Base excess Calc (BldV) [Moles/Vol] 8 mmol/L High 0-2 [facility] Comment on above: Order Comment: Speci men Type: VENOUS BLOOD SPECIMENOrdering Facility: [facility] Address: [address] [place] [address] Performed By: #### 2 4344-4 ####[facility]ORATORYCLIA [id number] [address] [place] Body temperature 100.22 [degF] Normal [facility] Comment on above: Order Comment: Speci men Type: VENOUS BLOOD SPECIMENOrdering Facility: [facility] Address: [address] [place] [address] Performed By: #### 2 4344-4 ####[facility]ORATORYCLIA [id number] [place] [address] [place] CALCIUM IONIZED, PH CORRECTED 1.25 mmol/L Normal 1.08-1.30 [facility] Comment on above: Order Comment: Speci men Type: VENOUS BLOOD SPECIMENOrdering Facility: [facility] Address: [address] [place] [address] Performed By: #### 2 4344-4 ####[facility]ORATORYCLIA [id number] [address] [place] Calcium.ionized (BldV) [Mass/Vol] 1.24 mmol/L Normal 1.08-1.30 [facility] Comment on above: Order Comment: Speci men Type: VENOUS BLOOD SPECIMENOrdering Facility: [facility] Address: [address] [place] [address] Performed By: #### 2 4344-4 ####[facility]ORATORYCLIA [id number] [place] [address] [place] Carboxyhemoglobin (BldV) [Mass fraction] 2.5 % High 0.0-2.0 [facility] Comment on above: Order Comment: Speci men Type: VENOUS BLOOD SPECIMENOrdering Facility: [facility] Address: [address] [place] [address] Result Comment: Carb oxyhemoglobin Reference Range for Smokers: 2.0-8.0% Performed By: #### 2 4344-4 ####[facility]ORATORYCLIA [id number] [address] [place] CO2 (BldV) [Partial pressure] 53 mm[Hg] Normal 42-55 [facility] Comment on above: Order Comment: Speci men Type: VENOUS BLOOD SPECIMENOrdering Facility: [facility] Address: [address] [place] [address] Performed By: #### 2 4344-4 ####[facility]ORATORYCLIA [id number] [address] [place] CO2 [Moles/Vol] 31 mmol/L High 25-29 [facility] Comment on above: Order Comment: Speci men Type: VENOUS BLOOD SPECIMENOrdering Facility: [facility] Address: [address] [place] [address] Performed By: #### 2 4344-4 ####[facility]ORATORYCLIA [id number] [address] [place] CO2 adjusted to patient's actual temperature (BldV) [Partial pressure] 56 mmHg High 42-55 [facility] Comment on above: Order Comment: Speci men Type: VENOUS BLOOD SPECIMENOrdering Facility: [facility] Address: [address] [address] Performed By: #### 2 4344-4 ####[facility]ORATORYCLIA [id number] [address] [place] [facility] Glucose [Mass/Vol] 131 mg/dL High 60-105 [facility] Comment on above: Order Comment: Speci men Type: VENOUS BLOOD SPECIMENOrdering Facility: [facility] Address: [facility] [place] [address] Performed By: #### 2 4344-4 ####[facility]ORATORYCLIA [id number] [address] [place] HCO3 (Bld) [Moles/Vol] 33 mmol/L High 24-28 [facility] Comment on above: Order Comment: Speci men Type: VENOUS BLOOD SPECIMENOrdering Facility: [facility] Address: [address] [place] [address] Performed By: #### 2 4344-4 ####[facility] LABORATORYCLIA [id number] [address] Hematocrit (Bld) [Volume fraction] 30.8 % Low 39.0-51.0 [facility] Comment on above: Order Comment: Speci men Type: VENOUS BLOOD SPECIMENOrdering Facility: [facility] Address: [address] [place] [address] Performed By: #### 2 4344-4 ####[facility] LABORATORYCLIA [id number] [address] [place] Hemoglobin (Bld) [Mass/Vol] 10.0 g/dL Low 13.0-17.0 [facility] Comment on above: Order Comment: Speci men Type: VENOUS BLOOD SPECIMENOrdering Facility: [facility] Address: [address] [place] [address] Performed By: #### 2 4344-4 ####[facility] [facility]PITAL LABORATORYCLIA [id number] [address] [facility] Methemoglobin (Bld) [Mass fraction] % Normal 0.0-1.5 [facility] Comment on above: Order Comment: Speci men Type: VENOUS BLOOD SPECIMENOrdering Facility: [facility] Address: [address] [place] [address] Performed By: #### 2 4344-4 ####[facility]ORATORYCLIA [id number] [address] O2 THERAPY NC = Nasal Cannula Normal [facility] Comment on above: Order Comment: Speci men Type: VENOUS BLOOD SPECIMENOrdering Facility: [facility] Address: [address] [place] [address] Performed By: #### 2 4344-4 ####[facility]ORATORYCLIA [id number] [address] Oxygen (BldV) [Partial pressure] 58 mm[Hg] High 35-45 [facility] Comment on above: Order Comment: Speci men Type: VENOUS BLOOD SPECIMENOrdering Facility: [facility] Address: [address] [place] [address] Performed By: #### 2 4344-4 ####[facility] LABORATORYCLIA [id number] [address] Oxygen adjusted to patient's actual temperature (BldV) [Partial pressure] 61 mmHg High 35-45 [facility] Comment on above: Order Comment: Speci men Type: VENOUS BLOOD SPECIMENOrdering Facility: [facility] Address: [address] [address] Performed By: #### 2 4344-4 ####[facility]ORATORYCLIA [id number] [address] Oxygen saturation in Blood 88 % High 60-85 [facility] Comment on above: Order Comment: Speci men Type: VENOUS BLOOD SPECIMENOrdering Facility: [facility] Address: [address] [address] Performed By: #### 2 4344-4 ####[facility]ORATORYCLIA [id number] [address] Oxyhemoglobin (BldV) [Mass fraction] 85 % Normal 60-85 [facility] Comment on above: Order Comment: Speci men Type: VENOUS BLOOD SPECIMENOrdering Facility: [facility] Address: [address] [place] [address] Performed By: #### 2 4344-4 ####[facility] LABORATORYCLIA [id number] [address] pH (BldV) 7.41 [pH] Normal 7.32-7.42 [facility] Comment on above: Order Comment: Speci men Type: VENOUS BLOOD SPECIMENOrdering Facility: [facility] Address: [address] [place] [address] Performed By: #### 2 4344-4 ####[facility] LABORATORYCLIA [id number] [address] pH adjusted to patient's actual temperature (BldV) 7.40 Normal 7.32-7.42 [facility] Comment on above: Order Comment: Speci men Type: VENOUS BLOOD SPECIMENOrdering Facility: [facility] Address: [address] [place] [address] Performed By: #### 2 4344-4 ####[facility] LABORATORYCLIA [id number] [address] [place] Potassium [Moles/Vol] 4.0 mmol/L Normal 3.5-5.0 [facility] Comment on above: Order Comment: Speci men Type: VENOUS BLOOD SPECIMENOrdering Facility: [facility] Address: [address] [place] [address] Performed By: #### 2 4344-4 ####[facility] LABORATORYCLIA [id number] [address] [place] Sodium [Moles/Vol] 146 mmol/L High 136-144 [facility] Comment on above: Order Comment: Speci men Type: VENOUS BLOOD SPECIMENOrdering Facility: [facility] Address: [address] [place] [address] Performed By: #### 2 4344-4 ####[facility] LABORATORYCLIA [id number] [address] Magnesium SerPl-mCncon 07-21 Magnesium [Mass/Vol] 2.5 mg/dL High 1.7-2.3 [facility] Comment on above: Order Comment: Speci men Type: BLOOD SPECIMENOrdering Facility: [facility] Address: [address] [place] [address] Performed By: #### 1 9123-9, 2777-1, 26657-4 ####[facility] LABORATORYCLIA [id number] [address] NURSING PROGon 07-21-2021 NURSING PROG Normal [facility] Phosphate SerPl-ncon 07-21 Phosphate [Mass/Vol] 3.7 mg/dL Normal 2.7-4.8 [facility] Comment on above: Order Comment: Speci men Type: BLOOD SPECIMENOrdering Facility: [facility] Address: [address] [place] [address] Performed By: #### 1 9123-9, 2777-, 79973-8 ####[facility] LABORATORYCLIA [id number] [address] THERAPY NTon 07-21-2021 THERAPY NT Normal [facility] XR CHEST 1V FRONTALon 2021 XR CHEST 1V FRONTAL Normal [facility] aPTT PPPon 07-21-2021 aPTT Coag (PPP) [Time] 53.0 s High 23.0-32.4 [facility] Comment on above: Order Comment: Speci men Type: BLOOD SPECIMENOrdering Facility: [facility] Address: [address] [place] [address] Performed By: #### 1 4979-9 ####[facility] LABORATORYCLIA [id number] [address] OF [facility] ALLIED HEALTHon 07-20-2021 ALLIED HEALTH Normal [facility] Basic metabolic 2000 panelon 07-20-2021 Anion gap [Moles/Vol] 8 mmol/L Low 9-18 [facility] Comment on above: Order Comment: Speci men Type: BLOOD SPECIMENOrdering Facility: [facility] Address: [address] [place] [address] Performed By: #### 2 4321-2, , 2776-05 ####[facility] LABORATORYCLIA [id number] [place] [id number] [place] Calcium [Mass/Vol] 9.7 mg/dL Normal 8.5-10.2 [facility] Comment on above: Order Comment: Speci men Type: BLOOD SPECIMENOrdering Facility: [facility] Address: [address] [place] [address] Performed By: #### 2 4321-2, , 2776-05 ####[facility] LABORATORYCLIA [id number] [place] [address] [place] Chloride [Moles/Vol] 104 mmol/L Normal 97-105 [facility] Comment on above: Order Comment: Speci men Type: BLOOD SPECIMENOrdering Facility: [facility] Address: [address] [place] [address] Performed By: #### 2 4321-2, , 2776-05 ####[facility] LABORATORYCLIA [id number] [place] [address] [place] CO2 [Moles/Vol] 34 mmol/L High 22-30 [facility] Comment on above: Order Comment: Speci men Type: BLOOD SPECIMENOrdering Facility: [facility] Address: [address] [place] [address] Performed By: #### 2 4321-2, , 2776-05 ####[facility] LABORATORYCLIA [id number] [place] [address] [place] Creatinine [Mass/Vol] 0.76 mg/dL Normal 0.73-1.22 [facility] Comment on above: Order Comment: Shira feldman Type: BLOOD SPECIMENOrdering Facility: [facility] Address: [address] [place] [id number] Performed By: #### 2 4321-2, 81326-1, 2776-05 ####[facility] LABORATORYCLIA [id number] [place] [address] [place] ESTIMATED GLOMERULAR FILTRATION RATE 97 mL/min/1.73m??? Normal >=60 [facility] Comment on above: Order Comment: Johncara feldman Type: BLOOD SPECIMENOrdering Facility: [facility] Address: [address] [place], [place] [address] Result Comment: Luzmaria mated Glomerular Filtration Rate [...] Performed By: #### 2 4321-2, , 2776-05 ####[facility] LABORATORYCLIA [id number] [place] [address] [place] Glucose [Mass/Vol] 123 mg/dL High 74-99 [facility] Comment on above: Order Comment: Shira feldman Type: BLOOD SPECIMENOrdering Facility: [facility] Address: [address] Result Comment: The [place] [employer] (ADA) [...] 2016.39(Suppl 1). Performed By: #### 2 4321-2, 66762-6, 2776- ####[facility] LABORATORYCLIA [id number] [place] [address] [place] Potassium [Moles/Vol] 4.4 mmol/L Normal 3.7-5.1 [facility] Comment on above: Order Comment: Speci men Type: BLOOD SPECIMENOrdering Facility: [facility] Address: [address] [place] [address] Performed By: #### 2 4321-2, , 2776-05 ####[facility] LABORATORYCLIA [id number] [address] STATES OF [facility] Sodium [Moles/Vol] 146 mmol/L High 136-144 [facility] Comment on above: Order Comment: Speci men Type: BLOOD SPECIMENOrdering Facility: [facility] Address: [address] [place] [address] Performed By: #### 2 4321-2, , 27711-04 ####[facility] LABORATORYCLIA [id number] [address] [place] Urea nitrogen [Mass/Vol] 38 mg/dL High 9-24 [facility] Comment on above: Order Comment: Speci men Type: BLOOD SPECIMENOrdering Facility: [facility] Address: [address] [place] [address] Performed By: #### 2 4321-2, , 27711-04 ####[facility] LABORATORYCLIA [id number] [place] [address] [place] CASE MANAGEMon 07-20-2021 CASE MANAGEM Normal [facility] CBC W Auto Differential pane l (Bld)on 07-20-2021 Basophils (Bld) [#/Vol] 0.05 10*3/uL Normal <0.11 [facility] Comment on above: Order Comment: Speci men Type: BLOOD SPECIMENOrdering Facility: [facility] Address: [address] [place] [address] Performed By: #### 5 7021-8 ####[facility]ORATORYCLIA [id number] [address] STATES [facility] Basophils/100 WBC (Bld) 0.5 % Normal [facility] Comment on above: Order Comment: Speci men Type: BLOOD SPECIMENOrdering Facility: [facility] Address: [address] [place] [address] Performed By: #### 5 7021-8 ####[facility] LABORATORYCLIA [id number] [address] OF [facility] Differential cell count method Nom (Bld) Auto Normal [facility] Comment on above: Order Comment: Speci men Type: BLOOD SPECIMENOrdering Facility: [facility] Address: [address] [place] [address] Performed By: #### 5 7021-8 ####[facility] LABORATORYCLIA [id number] [address] [place] Eosinophils (Bld) [#/Vol] 0.43 10*3/uL Normal <0.46 [facility] Comment on above: Order Comment: Speci men Type: BLOOD SPECIMENOrdering Facility: [facility] Address: [address] [place] [address] Performed By: #### 5 7021-8 ####[facility] LABORATORYCLIA [id number] [address] Eosinophils/100 WBC (Bld) 4.1 % Normal [facility] Comment on above: Order Comment: Speci men Type: BLOOD SPECIMENOrdering Facility: [facility] Address: [address] [place] [address] Performed By: #### 5 7021-8 ####[facility]ORATORYCLIA [id number] [address] [place] Erythrocyte distribution width (RBC) [Ratio] 16.7 % High 11.5-15.0 [facility] Comment on above: Order Comment: Speci men Type: BLOOD SPECIMENOrdering Facility: [facility] Address: [address] [place] [address] Performed By: #### 5 7021-8 ####[facility] LABORATORYCLIA [id number] [address] Hematocrit (Bld) [Volume fraction] 33.0 % Low 39.0-51.0 [facility] Comment on above: Order Comment: Speci men Type: BLOOD SPECIMENOrdering Facility: [facility] Address: [address] [place] [address] Performed By: #### 5 7021-8 ####[facility] LABORATORYCLIA [id number] [address] Hemoglobin (Bld) [Mass/Vol] 9.7 g/dL Low 13.0-17.0 [facility] Comment on above: Order Comment: Speci men Type: BLOOD SPECIMENOrdering Facility: [facility] Address: [address] [place] [address] Performed By: #### 5 7021-8 ####[facility] LABORATORYCLIA [id number] [address] IMMATURE GRAN % 0.4 % Normal [facility] Comment on above: Order Comment: Speci men Type: BLOOD SPECIMENOrdering Facility: [facility] Address: [address] [place] [address] Performed By: #### 5 7021-8 ####[facility] LABORATORYCLIA [id number] [address] IMMATURE GRAN ABS 0.04 k/uL Normal <0.10 [facility] Comment on above: Order Comment: Speci men Type: BLOOD SPECIMENOrdering Facility: [facility] Address: [address] [place] [address] Performed By: #### 5 7021-8 ####[facility] LABORATORYCLIA [id number] [address] Lymphocytes (Bld) [#/Vol] 1.99 10*3/uL Normal 1.00-4.00 [facility] Comment on above: Order Comment: Speci men Type: BLOOD SPECIMENOrdering Facility: [facility] Address: [address] [place] [address] Performed By: #### 5 7021-8 ####[facility] LABORATORYCLIA [id number] [address] Lymphocytes/100 WBC (Bld) 18.8 % Normal [facility] Comment on above: Order Comment: Speci men Type: BLOOD SPECIMENOrdering Facility: [facility] Address: [address] [place] [address] Performed By: #### 5 7021-8 ####[facility] LABORATORYCLIA [id number] [address] STATES OF [facility] MCH (RBC) [Entitic mass] 27.8 pg Normal 26.0-34.0 [facility] Comment on above: Order Comment: Speci men Type: BLOOD SPECIMENOrdering Facility: [facility] Address: [address] [place] [address] Performed By: #### 5 7021-8 ####[facility] LABORATORYCLIA [id number] [address] STATES [facility] MCHC (RBC) [Mass/Vol] 29.4 g/dL Low 30.5-36.0 [facility] Comment on above: Order Comment: Speci men Type: BLOOD SPECIMENOrdering Facility: [facility] Address: [address] [place] [address] Performed By: #### 5 7021-8 ####[facility] LABORATORYCLIA [id number] [address] STATES [facility] MCV (RBC) [Entitic vol] 94.6 fL Normal 80.0-100.0 [facility] Comment on above: Order Comment: Speci men Type: BLOOD SPECIMENOrdering Facility: [facility] Address: [address] [place] [address] Performed By: #### 5 7021-8 ####[facility]ORATORYCLIA [id number] [place] [address] [place] Monocytes (Bld) [#/Vol] 0.82 10*3/uL Normal <0.87 [facility] Comment on above: Order Comment: Speci men Type: BLOOD SPECIMENOrdering Facility: [facility] Address: [address] [place] [address] Performed By: #### 5 7021-8 ####[facility]ORATORYCLIA [id number] [place] [address] [place] Monocytes/100 WBC (Bld) 7.8 % Normal [facility] Comment on above: Order Comment: Speci men Type: BLOOD SPECIMENOrdering Facility: [facility] Address: [address] [place] [address] Performed By: #### 5 7021-8 ####[facility] LABORATORYCLIA [id number] [address] [place] Neutrophils (Bld) [#/Vol] 7.23 10*3/uL Normal 1.45-7.50 [facility] Comment on above: Order Comment: Speci men Type: BLOOD SPECIMENOrdering Facility: [facility] Address: [address] [place] [address] Performed By: #### 5 7021-8 ####[facility]ORATORYCLIA [id number] [address] [place] Neutrophils/100 WBC (Bld) 68.4 % Normal [facility] Comment on above: Order Comment: Speci men Type: BLOOD SPECIMENOrdering Facility: [facility] Address: [address] [place] [address] Performed By: #### 5 7021-8 ####[facility] LABORATORYCLIA [id number] [address] [place] Nucleated RBC (Bld) [#/Vol] 10*3/uL Normal <0.01 [facility] Comment on above: Order Comment: Speci men Type: BLOOD SPECIMENOrdering Facility: [facility] Address: [address] [place] [address] Performed By: #### 5 7021-8 ####[facility] LABORATORYCLIA [id number] [address] [place] Nucleated RBC/100 WBC (Bld) [Ratio] 0.0 /100 WBC Normal [facility] Comment on above: Order Comment: Speci men Type: BLOOD SPECIMENOrdering Facility: [facility] Address: [address] [place] [address] Performed By: #### 5 7021-8 ####[facility] LABORATORYCLIA [id number] [place] [address] [place] Platelet mean volume (Bld) [Entitic vol] 10.5 fL Normal 9.0-12.7 [facility] Comment on above: Order Comment: Speci men Type: BLOOD SPECIMENOrdering Facility: [facility] Address: [address] [place] [address] Performed By: #### 5 7021-8 ####[facility] LABORATORYCLIA [id number] [address] [place] Platelets (Bld) [#/Vol] 400 10*3/uL Normal 150-400 [facility] Comment on above: Order Comment: Speci men Type: BLOOD SPECIMENOrdering Facility: [facility] Address: [address] [place] [address] Performed By: #### 5 7021-8 ####[facility] LABORATORYCLIA [id number] [address] [place] RBC (Bld) [#/Vol] 3.49 10*6/uL Low 4.20-6.00 [facility] Comment on above: Order Comment: Speci men Type: BLOOD SPECIMENOrdering Facility: [facility] Address: [address] [place] [address] Performed By: #### 5 7021-8 ####[facility] LABORATORYCLIA [id number] [address] [place] WBC (Bld) [#/Vol] 10.56 10*3/uL Normal 3.70-11.00 [facility] Comment on above: Order Comment: Speci men Type: BLOOD SPECIMENOrdering Facility: [facility] Address: [address] [place] [address] Performed By: #### 5 7021-8 ####[facility] LABORATORYCLIA [id number] [address] [place] CONSULT PROGon 07-20-2021 CONSULT PROG Normal [facility] CT BRAIN WO IVCONon 07-21-[address] BRAIN WO IVCON Normal [facility] Magnesium SerPl-ncon 07-20 Magnesium [Mass/Vol] 2.4 mg/dL High 1.7-2.3 [facility] Comment on above: Order Comment: Speci men Type: BLOOD SPECIMENOrdering Facility: [facility] Address: [address] [place] [address] Performed By: #### 2 4321-2, 57920-5, 2777-1 ####[facility] LABORATORYCLIA [id number] [address] [place] NUTRITIONon 07-20-2021 NUTRITION Normal [facility] Phosphate SerPl-mCncon 07-20 Phosphate [Mass/Vol] 4.1 mg/dL Normal 2.7-4.8 [facility] Comment on above: Order Comment: Speci men Type: BLOOD SPECIMENOrdering Facility: [facility] Address: [address] [place] [address] Performed By: #### 2 4321-2, 55996-1, 2777-1 ####[facility] LABORATORYCLIA [id number] [address] [place] aPTT PPPon 07-20-2021 aPTT Coag (PPP) [Time] 53.6 s High 23.0-32.4 [facility] Comment on above: Order Comment: Speci men Type: BLOOD SPECIMENOrdering Facility: [facility] Address: [address] [place] [address] Performed By: #### 1 4979-9 ####[facility] LABORATORYCLIA [id number] [place] [address] [place] Bacteria CSF Culton 07-20-19 22 Bacteria identified Cx Nom (CSF) CULTURE, CSF: No growth 14 days GRAM STAIN: No organisms seen No Polymorphonuclear Leukocytes Rare Mononuclear cells Gram stain performed on cytospun specimen. Normal [facility] Comment on above: Performed By: #### 6 06-4 ####[facility] LABORATORYCLIA [id number] [address] [place] CONSULT PROGon 07-19-2021 CONSULT PROG Normal [facility] CSF MANUAL DIFFon 07-19-2021 DIF TTL, CSF 100 cells counted Normal [facility] Comment on above: Order Comment: Speci men Type: CEREBROSPINAL FLUIDOrdering Facility: [facility] Address: [address] [place] [address] Performed By: #### L [id number], 14427-1, [id number] ####[facility] LABORATORYCLIA [id number] [address] [place] EOSIN%, CSF 1 % Normal [facility] Comment on above: Order Comment: Speci men Type: CEREBROSPINAL FLUIDOrdering Facility: [facility] Address: [address] [place] [address] Performed By: #### L [id number], 35706-4, [id number] ####[facility] LABORATORYCLIA [id number] [place] [address] [place] LYMPH%, CSF 67 % Normal 50-90 [facility] Comment on above: Order Comment: Speci men Type: CEREBROSPINAL FLUIDOrdering Facility: [facility] Address: [address] [place] [address] Performed By: #### L [id number], 30296-0, [id number] ####[facility]ORATORYCLIA [id number] [place] [address] [place] MACRO%, CSF 1 % High <1 [facility] Comment on above: Order Comment: Speci men Type: CEREBROSPINAL FLUIDOrdering Facility: [facility] Address: [address] [place] [address] Performed By: #### L OH5180, 68895-2, [id number] ####[facility]ORATORYCLIA [id number] [place] [address] [place] MONO%, CSF 18 % Normal 10-50 [facility] Comment on above: Order Comment: Speci men Type: CEREBROSPINAL FLUIDOrdering Facility: [facility] Address: [address] [place] [address] Performed By: #### L [id number], 61873-8, [id number] ####[facility]ORATORYCLIA [id number] [address] [place] NEUT%, CSF 11 % High 0-3 [facility] Comment on above: Order Comment: Speci men Type: CEREBROSPINAL FLUIDOrdering Facility: [facility] Address: [address] [place] [address] Performed By: #### L [id number], 03604-4, [id number] ####[facility] LABORATORYCLIA [id number] [address] OTHER CL%, CSF 2 % Normal [facility] Comment on above: Order Comment: Speci men Type: CEREBROSPINAL FLUIDOrdering Facility: [facility] Address: [address] [place] [address] Result Comment: Path review to follow. Performed By: #### L [id number], 00288-6, [id number] ####[facility]ORATORYCLIA [id number] [address] CSF PATHOLOGIST INTERP (LAB REFLEX ORDER-NO BILL)on 07-19-2021 CSF STAFF REVIEW Normal [facility] Comment on above: Order Comment: Speci men Type: CEREBROSPINAL FLUIDOrdering Facility: [facility] Address: [address] [place] [address] Performed By: #### L [id number], 31915-4, [id number] ####[facility] LABORATORYCLIA [id number] [address] Pathologist name Reviewed by Wing Cummings MD [facility] Comment on above: Order Comment: Speci men Type: CEREBROSPINAL FLUIDOrdering Facility: [facility] Address: [address] [place] [address] Performed By: #### L [id number], [id number], [id number] ####[facility] LABORATORYCLIA [id number] [address] Cell count panel (CSF)on Clarity (CSF) Clear Normal Clear [facility] Comment on above: Order Comment: Speci men Type: CEREBROSPINAL FLUIDOrdering Facility: [facility] Address: [address] [place] [address] Performed By: #### L [id number], [id number], [id number] ####[facility] LABORATORYCLIA [id number] [address] Clarity (Unsp spec) Not Indicated Normal Clear [facility] Comment on above: Order Comment: Speci men Type: CEREBROSPINAL FLUIDOrdering Facility: [facility] Address: [address] [place] [address] Performed By: #### L [id number], 97517-7, [id number] ####[facility] LABORATORYCLIA [id number] [address] Color (CSF) Colorless Normal Colorless [facility] Comment on above: Order Comment: Speci men Type: CEREBROSPINAL FLUIDOrdering Facility: [facility] Address: [address] [place] [address] Performed By: #### L [id number], 44904-6, [id number] ####[facility]ORATORYCLIA [id number] [address] Color (Spun CSF) Not Indicated Normal Colorless [facility] Comment on above: Order Comment: Speci men Type: CEREBROSPINAL FLUIDOrdering Facility: [facility] Address: [address] [address] Performed By: #### L [id number], 61450-6, [id number] ####[facility] LABORATORYCLIA [id number] [address] CSF TUBE NUMBER Sterile Container Normal [facility] Comment on above: Order Comment: Speci men Type: CEREBROSPINAL FLUIDOrdering Facility: [facility] Address: [address] [place] [address] Performed By: #### L [id number], 88228-4, [id number] ####[facility] LABORATORYCLIA [id number] [address] STATES OF [facility] RBC Manual cnt (CSF) [#/Vol] 0 cells/uL Normal 0-5 [facility] Comment on above: Order Comment: Shira feldman Type: CEREBROSPINAL FLUIDOrdering Facility: [facility] Address: [address] [place] [address] Performed By: #### L [id number], 11414-1, [id number] ####[facility]ORATORYCLIA [id number] [address] WBC Manual cnt (CSF) [#/Vol] 2 cells/uL Normal 0-5 [facility] Comment on above: Order Comment: Johni men Type: CEREBROSPINAL FLUIDOrdering Facility: [facility] Address: [address] [place] [address] Performed By: #### L [id number], 47682-7, [id number] ####[facility] LABORATORYCLIA [id number] [address] [place] Glucose CSF-mCncon 2 Glucose (CSF) [Mass/Vol] 69 mg/dL Normal 40-70 [facility] Comment on above: Order Comment: Johni men Type: CEREBROSPINAL FLUIDOrdering Facility: [facility] Address: [address] [place] [address] Result Comment: Lumb ar CSF glucose values of healthy patients are approximately 60% of the plasma values and must always be compared with a concurrently measured plasma value for adequate clinical interpretation.References: 1. Glucose HK (GLUC3) [package insert V 12.0 Gambian]. [employer], [place], [place]. September 2015. 2. Michelle Moore, Loki, H. (2015). Chapter 7: Glucose and Lactate. Marianela Alcocer al.(eds.), Cerebrospinal Fluid in Clinical Neurology. [place]: [employer]. Performed By: #### 2 342-4, 2880-3 ####[facility]ORATORYCLIA [id number] [address] OF [facility] NURSING PROGon 07-19-2021 NURSING PROG Normal [facility] NURSING PROG Normal [facility] Prot CSF-mCncon 07-19-2021 Protein (CSF) [Mass/Vol] 51 mg/dL High [facility] Comment on above: Order Comment: Speci men Type: CEREBROSPINAL FLUIDOrdering Facility: [facility] Address: [address] [place] [address] Performed By: #### 2 342-4, 2880-3 ####[facility]ORATORYCLIA [id number] [address] THERAPY NTon 07-19-2021 THERAPY NT Normal [facility] Urinalysis complete panel (U )on 07-19-2021 Bilirubin Ql (U) Negative Normal Negative [facility] Comment on above: Order Comment: Speci men Type: URINE SPECIMENOrdering Facility: [facility] Address: [address] [place] [address] Performed By: #### 2 4356-8 ####[facility]ORATORYCLIA [id number] [address] Clarity (Unsp spec) Clear Normal Clear [facility] Comment on above: Order Comment: Speci men Type: URINE SPECIMENOrdering Facility: [facility] Address: [address] [place] [address] Performed By: #### 2 4356-8 ####[facility]ORATORYCLIA [id number] [address] Color (U) Colorless Normal yellow [facility] Comment on above: Order Comment: Speci men Type: URINE SPECIMENOrdering Facility: [facility] Address: [address] [place] [address] Performed By: #### 2 4356-8 ####[facility] LABORATORYCLIA [id number] [address] [place] Glucose Test strip (U) [Mass/Vol] Negative Normal Negative [facility] Comment on above: Order Comment: Speci men Type: URINE SPECIMENOrdering Facility: [facility] Address: [address] [place] [address] Performed By: #### 2 4356-8 ####[facility]ORATORYCLIA [id number] [address] Hemoglobin Ql (U) Trace Abnormal Negative [facility] Comment on above: Order Comment: Speci men Type: URINE SPECIMENOrdering Facility: [facility] Address: [address] [place] [address] Performed By: #### 2 4356-8 ####[facility]ORATORYCLIA [id number] [address] [place] Hyaline casts (Urine sed) [#/Area] 1-3 /LPF Abnormal 0 /LPF [facility] Comment on above: Order Comment: Speci men Type: URINE SPECIMENOrdering Facility: [facility] Address: [address] [place] [address] Performed By: #### 2 4356-8 ####[facility]ORATORYCLIA [id number] [address] [place] Ketones Ql (U) Negative Normal Negative [facility] Comment on above: Order Comment: Speci men Type: URINE SPECIMENOrdering Facility: [facility] Address: [address] [place] [address] Performed By: #### 2 4356-8 ####[facility]ORATORYCLIA [id number] [address] [place] Leukocyte esterase Test strip Ql (U) Negative Normal Negative [facility] Comment on above: Order Comment: Speci men Type: URINE SPECIMENOrdering Facility: [facility] Address: [address] [place] [address] Performed By: #### 2 4356-8 ####[facility] LABORATORYCLIA [id number] [place] [address] [place] Nitrite Ql (U) Negative Normal Negative [facility] Comment on above: Order Comment: Speci men Type: URINE SPECIMENOrdering Facility: [facility] Address: [address] [place] [address] Performed By: #### 2 4356-8 ####[facility]ORATORYCLIA [id number] [address] [place] pH (U) 7.0 [pH] Normal 5.0-8.0 [facility] Comment on above: Order Comment: Speci men Type: URINE SPECIMENOrdering Facility: [facility] Address: [address] [place] [address] Performed By: #### 2 4356-8 ####[facility]ORATORYCLIA [id number] [place] [address] [place] [facility] Protein (U) [Mass/Vol] Negative Normal Negative [facility] Comment on above: Order Comment: Speci men Type: URINE SPECIMENOrdering Facility: [facility] Address: [address] [place] [address] Performed By: #### 2 4356-8 ####[facility]ORATORYCLIA [id number] [place] [address] [place] RBC LM.HPF (Urine sed) [#/Area] 6-10 /HPF Abnormal 0-3 /HPF [facility] Comment on above: Order Comment: Speci men Type: URINE SPECIMENOrdering Facility: [facility] Address: [address] [place] [address] Performed By: #### 2 4356-8 ####[facility]ORATORYCLIA [id number] [address] [place] Specific gravity (U) [Rel density] 1.008 Normal 1.005-1.030 [facility] Comment on above: Order Comment: Speci men Type: URINE SPECIMENOrdering Facility: [facility] Address: [address] [place] [address] Performed By: #### 2 4356-8 ####[facility]ORATORYCLIA [id number] [address] Urobilinogen Ql (U) Normal Normal Negative [facility] Comment on above: Order Comment: Speci men Type: URINE SPECIMENOrdering Facility: [facility] Address: [address] [place] [address] Performed By: #### 2 4356-8 ####[facility]STERCLIA [id number] [address] WBC LM.HPF (Urine sed) [#/Area] 0-5 /HPF Normal 0-5 /HPF [facility] Comment on above: Order Comment: Speci men Type: URINE SPECIMENOrdering Facility: [facility] Address: [address] [place] [address] Performed By: #### 2 4356-8 ####[facility]ORATORYCLIA [id number] [address] Vancomycin random [Mass/Vol] on 07-19-2021 Vancomycin [Mass/Vol] 13.9 ug/mL Normal 10.0-20.0 [facility] Comment on above: Order Comment: Speci men Type: BLOOD SPECIMENOrdering Facility: [facility] Address: [address] [place] [address] Result Comment: Refe rence ranges and high/low indicator flags are provided as general guidelines only. The treating physician must determine appropriate target levels/dosing based on the specific clinical situation. Performed By: #### 4 091-5 ####[facility]ORATORYCLIA [id number] [address] [place] aPTT PPPon 07-19-2021 aPTT Coag (PPP) [Time] 53.9 s High 23.0-32.4 [facility] Comment on above: Order Comment: Speci men Type: BLOOD SPECIMENOrdering Facility: [facility] Address: [address] [place] [address] Performed By: #### 1 4979-9 ####[facility]ORATORYCLIA [id number] [place] [address] [place] Basic metabolic 2000 panelon 07-18-2021 Anion gap [Moles/Vol] 6 mmol/L Low 9-18 [facility] Comment on above: Order Comment: Speci men Type: BLOOD SPECIMENOrdering Facility: [facility] Address: [address] [place] [address] Performed By: #### 2 4321-2, , 2776-05 ####[facility]ORATORYCLIA [id number] [place] [address] [place] Calcium [Mass/Vol] 9.4 mg/dL Normal 8.5-10.2 [facility] Comment on above: Order Comment: Speci men Type: BLOOD SPECIMENOrdering Facility: [facility] Address: [address] [place] [address] Performed By: #### 2 4321-2, , 2776-05 ####[facility]ORATORYCLIA [id number] [place] [address] [place] Chloride [Moles/Vol] 103 mmol/L Normal 97-105 [facility] Comment on above: Order Comment: Speci men Type: BLOOD SPECIMENOrdering Facility: [facility] Address: [address] [place], [place] [address] Performed By: #### 2 4321-2, , 2776-05 ####[facility]ORATORYCLIA [id number] [place] [address] [place] CO2 [Moles/Vol] 34 mmol/L High 22-30 [facility] Comment on above: Order Comment: Speci men Type: BLOOD SPECIMENOrdering Facility: [facility] Address: [address] Performed By: #### 2 4321-2, , 2776-05 ####[facility]STERCLIA [id number] [address] [id number] [place] [facility] Creatinine [Mass/Vol] 0.75 mg/dL Normal 0.73-1.22 [facility] Comment on above: Order Comment: Shira feldman Type: BLOOD SPECIMENOrdering Facility: [facility] Address: [address] [address] Performed By: #### 2 4321-2, , 2776-05 ####[facility]ORATORYCLIA [id number] [address] [id number] [place] [facility] ESTIMATED GLOMERULAR FILTRATION RATE 98 mL/min/1.73m??? Normal >=60 [facility] Comment on above: Order Comment: Shira feldman Type: BLOOD SPECIMENOrdering Facility: [facility] Address: [address] [place] [address] Result Comment: Luzmaria mated Glomerular Filtration Rate [...] Performed By: #### 2 4321-2, , 2776-05 ####[facility]ORATORYCLIA [id number] [address] [id number] [place] Glucose [Mass/Vol] 125 mg/dL High 74-99 [facility] Comment on above: Order Comment: Shiar feldman Type: BLOOD SPECIMENOrdering Facility: [facility] Address: [address] [address] Result Comment: The [place] [employer] (ADA) [...] Performed By: #### 2 4321-2, , 2776-05 ####[facility]ORATORYCLIA [id number] [place] [address] [place] Potassium [Moles/Vol] 4.4 mmol/L Normal 3.7-5.1 [facility] Comment on above: Order Comment: Shira feldman Type: BLOOD SPECIMENOrdering Facility: [facility] Address: [address] [place] [address] Performed By: #### 2 432-2, , 2776-05 ####[facility]STERCLIA [id number] [place] [address] [place] Sodium [Moles/Vol] 143 mmol/L Normal 136-144 [facility] Comment on above: Order Comment: Shira feldman Type: BLOOD SPECIMENOrdering Facility: [facility] Address: [address] [place] [address] Performed By: #### 2 4321-2, , 2776-05 ####[facility]ORATORYCLIA [id number] [place] [address] [place] Urea nitrogen [Mass/Vol] 33 mg/dL High 9-24 [facility] Comment on above: Order Comment: Shira feldman Type: BLOOD SPECIMENOrdering Facility: [facility] Address: [address] [place] [address] Performed By: #### 2 4321-2, , 2776-05 ####[facility]ORATORYCLIA [id number] [address] [place] CASE MANAGEMon 07-18-2021 CASE MANAGEM Normal [facility] CBC W Auto Differential pane l (Bld)on 07-18-2021 Basophils (Bld) [#/Vol] 0.05 10*3/uL Normal <0.11 [facility] Comment on above: Order Comment: Speci men Type: BLOOD SPECIMENOrdering Facility: [facility] Address: [address] [place] [address] Performed By: #### 5 7021-8 ####[facility]ORATORYCLIA [id number] [address] [place] Basophils/100 WBC (Bld) 0.5 % Normal [facility] Comment on above: Order Comment: Speci men Type: BLOOD SPECIMENOrdering Facility: [facility] Address: [address] [place] [address] Performed By: #### 5 7021-8 ####[facility]ORATORYCLIA [id number] [address] [place] Differential cell count method Nom (Bld) Auto Normal [facility] Comment on above: Order Comment: Speci men Type: BLOOD SPECIMENOrdering Facility: [facility] Address: [address] [place] [address] Performed By: #### 5 7021-8 ####[facility]ORATORYCLIA [id number] [place] [address] [place] Eosinophils (Bld) [#/Vol] 0.44 10*3/uL Normal <0.46 [facility] Comment on above: Order Comment: Speci men Type: BLOOD SPECIMENOrdering Facility: [facility] Address: [address] [address] Performed By: #### 5 7021-8 ####[facility]ORATORYCLIA [id number] [address] [place] Eosinophils/100 WBC (Bld) 4.3 % Normal [facility] Comment on above: Order Comment: Speci men Type: BLOOD SPECIMENOrdering Facility: [facility] Address: [address] [place] [address] Performed By: #### 5 7021-8 ####[facility]ORATORYCLIA [id number] [address] Erythrocyte distribution width (RBC) [Ratio] 16.6 % High 11.5-15.0 [facility] Comment on above: Order Comment: Speci men Type: BLOOD SPECIMENOrdering Facility: [facility] Address: [address] [place] [address] Performed By: #### 5 7021-8 ####[facility]ORATORYCLIA [id number] [address] Hematocrit (Bld) [Volume fraction] 32.2 % Low 39.0-51.0 [facility] Comment on above: Order Comment: Speci men Type: BLOOD SPECIMENOrdering Facility: [facility] Address: [address] [place] [address] Performed By: #### 5 7021-8 ####[facility]ORATORYCLIA [id number] [address] Hemoglobin (Bld) [Mass/Vol] 9.5 g/dL Low 13.0-17.0 [facility] Comment on above: Order Comment: Speci men Type: BLOOD SPECIMENOrdering Facility: [facility] Address: [address] [place] [address] Performed By: #### 5 7021-8 ####[facility]ORATORYCLIA [id number] [address] IMMATURE GRAN % 0.4 % Normal [facility] Comment on above: Order Comment: Speci men Type: BLOOD SPECIMENOrdering Facility: [facility] Address: [address] [place] [address] Performed By: #### 5 7021-8 ####[facility]ORATORYCLIA [id number] [address] IMMATURE GRAN ABS 0.04 k/uL Normal <0.10 [facility] Comment on above: Order Comment: Speci men Type: BLOOD SPECIMENOrdering Facility: [facility] Address: [address] [place] [address] Performed By: #### 5 7021-8 ####[facility]ORATORYCLIA [id number] [address] Lymphocytes (Bld) [#/Vol] 1.71 10*3/uL Normal 1.00-4.00 [facility] Comment on above: Order Comment: Speci men Type: BLOOD SPECIMENOrdering Facility: [facility] Address: [address] [place] [address] Performed By: #### 5 7021-8 ####[facility]ORATORYCLIA [id number] [address] Lymphocytes/100 WBC (Bld) 16.9 % Normal [facility] Comment on above: Order Comment: Speci men Type: BLOOD SPECIMENOrdering Facility: [facility] Address: [address] [place] [address] Performed By: #### 5 7021-8 ####[facility]ORATORYCLIA [id number] [address] STATES [facility] MCH (RBC) [Entitic mass] 27.9 pg Normal 26.0-34.0 [facility] Comment on above: Order Comment: Speci men Type: BLOOD SPECIMENOrdering Facility: [facility] Address: [address] [place] [address] Performed By: #### 5 7021-8 ####[facility]ORATORYCLIA [id number] [address] [place] MCHC (RBC) [Mass/Vol] 29.5 g/dL Low 30.5-36.0 [facility] Comment on above: Order Comment: Speci men Type: BLOOD SPECIMENOrdering Facility: [facility] Address: [address] [place] [address] Performed By: #### 5 7021-8 ####[facility] LABORATORYCLIA [id number] [place] [address] [place] MCV (RBC) [Entitic vol] 94.7 fL Normal 80.0-100.0 [facility] Comment on above: Order Comment: Speci men Type: BLOOD SPECIMENOrdering Facility: [facility] Address: [address] [place] [address] Performed By: #### 5 7021-8 ####[facility]ORATORYCLIA [id number] [place] [address] [place] Monocytes (Bld) [#/Vol] 0.69 10*3/uL Normal <0.87 [facility] Comment on above: Order Comment: Speci men Type: BLOOD SPECIMENOrdering Facility: [facility] Address: [address] [place] [address] Performed By: #### 5 7021-8 ####[facility]ORATORYCLIA [id number] [address] [place] Monocytes/100 WBC (Bld) 6.8 % Normal [facility] Comment on above: Order Comment: Speci men Type: BLOOD SPECIMENOrdering Facility: [facility] Address: [address] [place] [address] Performed By: #### 5 7021-8 ####[facility]ORATORYCLIA [id number] [address] [place] Neutrophils (Bld) [#/Vol] 7.19 10*3/uL Normal 1.45-7.50 [facility] Comment on above: Order Comment: Speci men Type: BLOOD SPECIMENOrdering Facility: [facility] Address: [address] [place] [address] Performed By: #### 5 7021-8 ####[facility]ORATORYCLIA [id number] [address] [place] Neutrophils/100 WBC (Bld) 71.1 % Normal [facility] Comment on above: Order Comment: Speci men Type: BLOOD SPECIMENOrdering Facility: [facility] Address: [address] [place] [address] Performed By: #### 5 7021-8 ####[facility]ORATORYCLIA [id number] [place] [address] [place] Nucleated RBC (Bld) [#/Vol] 10*3/uL Normal <0.01 [facility] Comment on above: Order Comment: Speci men Type: BLOOD SPECIMENOrdering Facility: [facility] Address: [address] [place] [address] Performed By: #### 5 7021-8 ####[facility]ORATORYCLIA [id number] [address] [place] Nucleated RBC/100 WBC (Bld) [Ratio] 0.0 /100 WBC Normal [facility] Comment on above: Order Comment: Speci men Type: BLOOD SPECIMENOrdering Facility: [facility] Address: [address] [place] [address] Performed By: #### 5 7021-8 ####[facility]ORATORYCLIA [id number] [address] Platelet mean volume (Bld) [Entitic vol] 10.3 fL Normal 9.0-12.7 [facility] Comment on above: Order Comment: Speci men Type: BLOOD SPECIMENOrdering Facility: [facility] Address: [address] [place] [address] Performed By: #### 5 7021-8 ####[facility]ORATORYCLIA [id number] [address] [place] Platelets (Bld) [#/Vol] 403 10*3/uL High 150-400 [facility] Comment on above: Order Comment: Speci men Type: BLOOD SPECIMENOrdering Facility: [facility] Address: [address] [place] [address] Performed By: #### 5 7021-8 ####[facility]ORATORYCLIA [id number] [address] [place] RBC (Bld) [#/Vol] 3.40 10*6/uL Low 4.20-6.00 [facility] Comment on above: Order Comment: Speci men Type: BLOOD SPECIMENOrdering Facility: [facility] Address: [address] [place] [address] Performed By: #### 5 7021-8 ####[facility]ORATORYCLIA [id number] [address] OF [facility] WBC (Bld) [#/Vol] 10.12 10*3/uL Normal 3.70-11.00 [facility] Comment on above: Order Comment: Speci men Type: BLOOD SPECIMENOrdering Facility: [facility] Address: [address] [place] [address] Performed By: #### 5 7021-8 ####[facility]ORATORYCLIA [id number] [address] Magnesium SerPl-mCncon 07-18 Magnesium [Mass/Vol] 2.4 mg/dL High 1.7-2.3 [facility] Comment on above: Order Comment: Speci men Type: BLOOD SPECIMENOrdering Facility: [facility] Address: [address] [place] [address] Performed By: #### 2 4321-2, , 2776-05 ####[facility] LABORATORYCLIA [id number] [address] NURSING PROGon 07-18-2021 NURSING PROG Normal [facility] NURSING PROG Normal [facility] Phosphate SerPl-mCncon 07-18 Phosphate [Mass/Vol] 3.9 mg/dL Normal 2.7-4.8 [facility] Comment on above: Order Comment: Speci men Type: BLOOD SPECIMENOrdering Facility: [facility] Address: [address] [place] [address] Performed By: #### 2 4321-2, 39553-3, 2777- ####[facility] LABORATORYCLIA [id number] [address] [place] THERAPY NTon 07-18-2021 THERAPY NT Normal [facility] aPTT PPPon 07-18-2021 aPTT Coag (PPP) [Time] 52.3 s High 23.0-32.4 [facility] Comment on above: Order Comment: Speci men Type: BLOOD SPECIMENOrdering Facility: [facility] Address: [address] [place] [address] Performed By: #### 1 4979-9 ####[facility] LABORATORYCLIA [id number] [address] STATES OF [facility] CBC W Auto Differential pane l (Bld)on 07-17-2021 Basophils (Bld) [#/Vol] 0.05 10*3/uL Normal <0.11 [facility] Comment on above: Order Comment: Speci men Type: BLOOD SPECIMENOrdering Facility: [facility] Address: [address] [place] [address] Performed By: #### 5 7021-8 ####[facility] LABORATORYCLIA [id number] [address] [place] Basophils/100 WBC (Bld) 0.5 % Normal [facility] Comment on above: Order Comment: Speci men Type: BLOOD SPECIMENOrdering Facility: [facility] Address: [address] [place] [address] Performed By: #### 5 7021-8 ####[facility] LABORATORYCLIA [id number] [address] Differential cell count method Nom (Bld) Auto Normal [facility] Comment on above: Order Comment: Speci men Type: BLOOD SPECIMENOrdering Facility: [facility] Address: [address] [place] [address] Performed By: #### 5 7021-8 ####[facility] LABORATORYCLIA [id number] [place] [address] [place] Eosinophils (Bld) [#/Vol] 0.32 10*3/uL Normal <0.46 [facility] Comment on above: Order Comment: Speci men Type: BLOOD SPECIMENOrdering Facility: [facility] Address: [address] [address] Performed By: #### 5 7021-8 ####[facility]ORATORYCLIA [id number] [address] Eosinophils/100 WBC (Bld) 3.4 % Normal [facility] Comment on above: Order Comment: Speci men Type: BLOOD SPECIMENOrdering Facility: [facility] Address: [address] [place] [address] Performed By: #### 5 7021-8 ####[facility] LABORATORYCLIA [id number] [address] Erythrocyte distribution width (RBC) [Ratio] 16.6 % High 11.5-15.0 [facility] Comment on above: Order Comment: Speci men Type: BLOOD SPECIMENOrdering Facility: [facility] Address: [address] [place] [address] Performed By: #### 5 7021-8 ####[facility] LABORATORYCLIA [id number] [address] Hematocrit (Bld) [Volume fraction] 30.7 % Low 39.0-51.0 [facility] Comment on above: Order Comment: Speci men Type: BLOOD SPECIMENOrdering Facility: [facility] Address: [address] [place] [address] Performed By: #### 5 7021-8 ####[facility] LABORATORYCLIA [id number] [address] [place] Hemoglobin (Bld) [Mass/Vol] 9.0 g/dL Low 13.0-17.0 [facility] Comment on above: Order Comment: Speci men Type: BLOOD SPECIMENOrdering Facility: [facility] Address: [address] [place] [address] Performed By: #### 5 7021-8 ####[facility] LABORATORYCLIA [id number] [address] [place] IMMATURE GRAN % 0.6 % Normal [facility] Comment on above: Order Comment: Speci men Type: BLOOD SPECIMENOrdering Facility: [facility] Address: [address] [place] [address] Performed By: #### 5 7021-8 ####[facility] LABORATORYCLIA [id number] [address] IMMATURE GRAN ABS 0.06 k/uL Normal <0.10 [facility] Comment on above: Order Comment: Speci men Type: BLOOD SPECIMENOrdering Facility: [facility] Address: [address] [place] [address] Performed By: #### 5 7021-8 ####[facility] LABORATORYCLIA [id number] [address] Lymphocytes (Bld) [#/Vol] 1.61 10*3/uL Normal 1.00-4.00 [facility] Comment on above: Order Comment: Speci men Type: BLOOD SPECIMENOrdering Facility: [facility] Address: [address] [place] [address] Performed By: #### 5 7021-8 ####[facility] LABORATORYCLIA [id number] [address] Lymphocytes/100 WBC (Bld) 17.3 % Normal [facility] Comment on above: Order Comment: Speci men Type: BLOOD SPECIMENOrdering Facility: [facility] Address: [address] [place] [address] Performed By: #### 5 7021-8 ####[facility] LABORATORYCLIA [id number] [address] MCH (RBC) [Entitic mass] 26.9 pg Normal 26.0-34.0 [facility] Comment on above: Order Comment: Speci men Type: BLOOD SPECIMENOrdering Facility: [facility] Address: [address] [place] [address] Performed By: #### 5 7021-8 ####[facility] LABORATORYCLIA [id number] [place] [address] [place] MCHC (RBC) [Mass/Vol] 29.3 g/dL Low 30.5-36.0 [facility] Comment on above: Order Comment: Speci men Type: BLOOD SPECIMENOrdering Facility: [facility] Address: [address] [place] [address] Performed By: #### 5 7021-8 ####[facility] LABORATORYCLIA [id number] [place] [address] [place] MCV (RBC) [Entitic vol] 91.9 fL Normal 80.0-100.0 [facility] Comment on above: Order Comment: Speci men Type: BLOOD SPECIMENOrdering Facility: [facility] Address: [address] [place] [address] Performed By: #### 5 7021-8 ####[facility] LABORATORYCLIA [id number] [address] [place] Monocytes (Bld) [#/Vol] 0.61 10*3/uL Normal <0.87 [facility] Comment on above: Order Comment: Speci men Type: BLOOD SPECIMENOrdering Facility: [facility] Address: [address] [place] [address] Performed By: #### 5 7021-8 ####[facility] LABORATORYCLIA [id number] [address] [place] Monocytes/100 WBC (Bld) 6.6 % Normal [facility] Comment on above: Order Comment: Speci men Type: BLOOD SPECIMENOrdering Facility: [facility] Address: [address] [place] [address] Performed By: #### 5 7021-8 ####[facility] LABORATORYCLIA [id number] [place] [address] [place] Neutrophils (Bld) [#/Vol] 6.64 10*3/uL Normal 1.45-7.50 [facility] Comment on above: Order Comment: Speci men Type: BLOOD SPECIMENOrdering Facility: [facility] Address: [address] [place] [address] Performed By: #### 5 7021-8 ####[facility]ORATORYCLIA [id number] [address] Neutrophils/100 WBC (Bld) 71.6 % Normal [facility] Comment on above: Order Comment: Speci men Type: BLOOD SPECIMENOrdering Facility: [facility] Address: [address] [place] [address] Performed By: #### 5 7021-8 ####[facility]ORATORYCLIA [id number] [address] [place] Nucleated RBC (Bld) [#/Vol] 10*3/uL Normal <0.01 [facility] Comment on above: Order Comment: Speci men Type: BLOOD SPECIMENOrdering Facility: [facility] Address: [address] [place] [address] Performed By: #### 5 7021-8 ####[facility]ORATORYCLIA [id number] [address] Nucleated RBC/100 WBC (Bld) [Ratio] 0.0 /100 WBC Normal [facility] Comment on above: Order Comment: Speci men Type: BLOOD SPECIMENOrdering Facility: [facility] Address: [address] [place] [address] Performed By: #### 5 7021-8 ####[facility]ORATORYCLIA [id number] [address] [place] Platelet mean volume (Bld) [Entitic vol] 10.1 fL Normal 9.0-12.7 [facility] Comment on above: Order Comment: Speci men Type: BLOOD SPECIMENOrdering Facility: [facility] Address: [address] [place] [address] Performed By: #### 5 7021-8 ####[facility]ORATORYCLIA [id number] [address] [place] Platelets (Bld) [#/Vol] 387 10*3/uL Normal 150-400 [facility] Comment on above: Order Comment: Speci men Type: BLOOD SPECIMENOrdering Facility: [facility] Address: [address] [place] [address] Performed By: #### 5 7021-8 ####[facility]ORATORYCLIA [id number] [address] RBC (Bld) [#/Vol] 3.34 10*6/uL Low 4.20-6.00 [facility] Comment on above: Order Comment: Speci men Type: BLOOD SPECIMENOrdering Facility: [facility] Address: [address] [place] [address] Performed By: #### 5 7021-8 ####[facility]ORATORYCLIA [id number] [address] WBC (Bld) [#/Vol] 9.29 10*3/uL Normal 3.70-11.00 [facility] Comment on above: Order Comment: Speci men Type: BLOOD SPECIMENOrdering Facility: [facility] Address: [address] [place] [address] Performed By: #### 5 7021-8 ####[facility]ORATORYCLIA [id number] [address] CONSULT PROGon 07-17-2021 CONSULT PROG Normal [facility] Magnesium [Mass/Vol] 2.3 mg/dL Normal 1.7-2.3 [facility] Comment on above: Order Comment: Speci men Type: BLOOD SPECIMENOrdering Facility: [facility] Address: [address] [place] [address] Performed By: #### 2 777-1, 81801-8 ####[facility]ORATORYCLIA [id number] [address] NURSING PROGon 07-17-2021 NURSING PROG Normal [facility] NURSING PROG Normal [facility] NURSING PROG Normal [facility] Phosphate SerPl-mCncon 07-17 Phosphate [Mass/Vol] 3.6 mg/dL Normal 2.7-4.8 [facility] Comment on above: Order Comment: Speci men Type: BLOOD SPECIMENOrdering Facility: [facility] Address: [address] [place] [address] Performed By: #### 2 777-1, ####[facility]ORATORYCLIA [id number] [address] OF [facility] aPTT PPPon 07-17-2021 aPTT Coag (PPP) [Time] 57.2 s High 23.0-32.4 [facility] Comment on above: Order Comment: Speci men Type: BLOOD SPECIMENOrdering Facility: [facility] Address: [address] [place] [address] Performed By: #### 1 4979-9 ####[facility]ORATORYCLIA [id number] [place] [address] [place] Basic metabolic 2000 panelon 07-16-2021 Anion gap [Moles/Vol] 5 mmol/L Low 9-18 [facility] Comment on above: Order Comment: Speci men Type: BLOOD SPECIMENOrdering Facility: [facility] Address: [address] [place] [address] Performed By: #### 2 777-1, , ####[facility]ORATORYCLIA [id number] [place] [address] [place] [facility] Calcium [Mass/Vol] 9.1 mg/dL Normal 8.5-10.2 [facility] Comment on above: Order Comment: Speci men Type: BLOOD SPECIMENOrdering Facility: [facility] Address: [address] [place] [address] Performed By: #### 2 777-1, , ####[facility]ORATORYCLIA [id number] [address] STATES [place] [facility] Chloride [Moles/Vol] 101 mmol/L Normal 97-105 [facility] Comment on above: Order Comment: Speci men Type: BLOOD SPECIMENOrdering Facility: [facility] Address: [address] [place] [address] Performed By: #### 2 777-1, 48423-9, ####[facility]UNSTERCLIA [id number] [address] CO2 [Moles/Vol] 35 mmol/L High 22-30 [facility] Comment on above: Order Comment: Speci men Type: BLOOD SPECIMENOrdering Facility: [facility] Address: [address] [place] [address] Performed By: #### 2 777-1, , ####[facility]PITALIA [id number] [address] Creatinine [Mass/Vol] 0.73 mg/dL Normal 0.73-1.22 [facility] Comment on above: Order Comment: Speci men Type: BLOOD SPECIMENOrdering Facility: [facility] Address: [address] [place] [address] Performed By: #### 2 777-1, , ####[facility] HOSPITALIA [id number] [address] ESTIMATED GLOMERULAR FILTRATION RATE 98 mL/min/1.73m??? Normal >=60 [facility] Comment on above: Order Comment: Speci men Type: BLOOD SPECIMENOrdering Facility: [facility] Address: [address] [place] [address] Result Comment: Luzmaria mated Glomerular Filtration Rate [...] actual GFR. Performed By: #### 2 777-1, 79408-4, ####[facility]ORATORYCLIA [id number] [place] [address] [place] Glucose [Mass/Vol] 133 mg/dL High 74-99 [facility] Comment on above: Order Comment: Speci men Type: BLOOD SPECIMENOrdering Facility: [facility] Address: [address] [place], [place] [id number] Result Comment: The [place] [employer] (ADA) [...] 2016.39(Suppl 1). Performed By: #### 2 777-1, 95931-8, ####[facility]ORATORYCLIA [id number] [place] [address] [place] Potassium [Moles/Vol] 4.2 mmol/L Normal 3.7-5.1 [facility] Comment on above: Order Comment: Shira feldman Type: BLOOD SPECIMENOrdering Facility: [facility] Address: [address] [id number] Performed By: #### 2 777-1, 14183-0, ####[facility] LABORATORYCLIA [id number] [place] [address] [place] Sodium [Moles/Vol] 141 mmol/L Normal 136-144 [facility] Comment on above: Order Comment: Johni men Type: BLOOD SPECIMENOrdering Facility: [facility] Address: [address] [id number] Performed By: #### 2 777-1, 59971-9, ####[facility]ORATORYCLIA [id number] [address] Urea nitrogen [Mass/Vol] 21 mg/dL Normal 9-24 [facility] Comment on above: Order Comment: Speci men Type: BLOOD SPECIMENOrdering Facility: [facility] Address: [address] [place] [address] Performed By: #### 2 777-1, 80825-7, 36156-7 ####[facility]ORATORYCLIA [id number] [address] STATES [place] [facility] CBC W Auto Differential pane l (Bld)on 07-16-2021 Basophils (Bld) [#/Vol] 0.06 10*3/uL Normal <0.11 [facility] Comment on above: Order Comment: Speci men Type: BLOOD SPECIMENOrdering Facility: [facility] Address: [address] [place] [address] Performed By: #### 5 7021-8 ####[facility]ORATORYCLIA [id number] [address] STATES [place] [facility] Basophils/100 WBC (Bld) 0.7 % Normal [facility] Comment on above: Order Comment: Speci men Type: BLOOD SPECIMENOrdering Facility: [facility] Address: [address] [place] [address] Performed By: #### 5 7021-8 ####[facility]ORATORYCLIA [id number] [address] Differential cell count method Nom (Bld) Auto Normal [facility] Comment on above: Order Comment: Speci men Type: BLOOD SPECIMENOrdering Facility: [facility] Address: [address] [place] [address] Performed By: #### 5 7021-8 ####[facility]ORATORYCLIA [id number] [address] [place] Eosinophils (Bld) [#/Vol] 0.35 10*3/uL Normal <0.46 [facility] Comment on above: Order Comment: Speci men Type: BLOOD SPECIMENOrdering Facility: [facility] Address: [address] [place] [address] Performed By: #### 5 7021-8 ####[facility]ORATORYCLIA [id number] [address] STATES [facility] Eosinophils/100 WBC (Bld) 3.9 % Normal [facility] Comment on above: Order Comment: Speci men Type: BLOOD SPECIMENOrdering Facility: [facility] Address: [address] [place] [address] Performed By: #### 5 7021-8 ####[facility]ORATORYCLIA [id number] [address] Erythrocyte distribution width (RBC) [Ratio] 16.5 % High 11.5-15.0 [facility] Comment on above: Order Comment: Speci men Type: BLOOD SPECIMENOrdering Facility: [facility] Address: [address] [place] [address] Performed By: #### 5 7021-8 ####[facility]ORATORYCLIA [id number] [address] Hematocrit (Bld) [Volume fraction] 30.9 % Low 39.0-51.0 [facility] Comment on above: Order Comment: Speci men Type: BLOOD SPECIMENOrdering Facility: [facility] Address: [address] [place] [address] Performed By: #### 5 7021-8 ####[facility] LABORATORYCLIA [id number] [address] [place] Hemoglobin (Bld) [Mass/Vol] 9.1 g/dL Low 13.0-17.0 [facility] Comment on above: Order Comment: Speci men Type: BLOOD SPECIMENOrdering Facility: [facility] Address: [address] [place] [address] Performed By: #### 5 7021-8 ####[facility]ORATORYCLIA [id number] [address] [place] IMMATURE GRAN % 0.4 % Normal [facility] Comment on above: Order Comment: Speci men Type: BLOOD SPECIMENOrdering Facility: [facility] Address: [address] [place] [address] Performed By: #### 5 7021-8 ####[facility]ORATORYCLIA [id number] [address] STATES OF [facility] IMMATURE GRAN ABS 0.04 k/uL Normal <0.10 [facility] Comment on above: Order Comment: Speci men Type: BLOOD SPECIMENOrdering Facility: [facility] Address: [address] [place] [address] Performed By: #### 5 7021-8 ####[facility] LABORATORYCLIA [id number] [address] Lymphocytes (Bld) [#/Vol] 1.35 10*3/uL Normal 1.00-4.00 [facility] Comment on above: Order Comment: Speci men Type: BLOOD SPECIMENOrdering Facility: [facility] Address: [address] [place] [address] Performed By: #### 5 7021-8 ####[facility]ORATORYCLIA [id number] [address] Lymphocytes/100 WBC (Bld) 15.0 % Normal [facility] Comment on above: Order Comment: Speci men Type: BLOOD SPECIMENOrdering Facility: [facility] Address: [address] [place] [address] Performed By: #### 5 7021-8 ####[facility]ORATORYCLIA [id number] [address] STATES [facility] MCH (RBC) [Entitic mass] 27.1 pg Normal 26.0-34.0 [facility] Comment on above: Order Comment: Speci men Type: BLOOD SPECIMENOrdering Facility: [facility] Address: [address] [place] [address] Performed By: #### 5 7021-8 ####[facility] LABORATORYCLIA [id number] [address] MCHC (RBC) [Mass/Vol] 29.4 g/dL Low 30.5-36.0 [facility] Comment on above: Order Comment: Speci men Type: BLOOD SPECIMENOrdering Facility: [facility] Address: [address] [place] [address] Performed By: #### 5 7021-8 ####[facility] LABORATORYCLIA [id number] [address] [place] MCV (RBC) [Entitic vol] 92.0 fL Normal 80.0-100.0 [facility] Comment on above: Order Comment: Speci men Type: BLOOD SPECIMENOrdering Facility: [facility] Address: [address] [place] [address] Performed By: #### 5 7021-8 ####[facility] LABORATORYCLIA [id number] [address] [place] Monocytes (Bld) [#/Vol] 0.53 10*3/uL Normal <0.87 [facility] Comment on above: Order Comment: Speci men Type: BLOOD SPECIMENOrdering Facility: [facility] Address: [address] [place] [address] Performed By: #### 5 7021-8 ####[facility] LABORATORYCLIA [id number] [address] Monocytes/100 WBC (Bld) 5.9 % Normal [facility] Comment on above: Order Comment: Speci men Type: BLOOD SPECIMENOrdering Facility: [facility] Address: [address] [place] [address] Performed By: #### 5 7021-8 ####[facility] LABORATORYCLIA [id number] [address] [place] Neutrophils (Bld) [#/Vol] 6.67 10*3/uL Normal 1.45-7.50 [facility] Comment on above: Order Comment: Speci men Type: BLOOD SPECIMENOrdering Facility: [facility] Address: [address] [place] [address] Performed By: #### 5 7021-8 ####[facility] LABORATORYCLIA [id number] [address] Neutrophils/100 WBC (Bld) 74.1 % Normal [facility] Comment on above: Order Comment: Speci men Type: BLOOD SPECIMENOrdering Facility: [facility] Address: [address] [place] [address] Performed By: #### 5 7021-8 ####[facility] LABORATORYCLIA [id number] [address] [place] Nucleated RBC (Bld) [#/Vol] 10*3/uL Normal <0.01 [facility] Comment on above: Order Comment: Speci men Type: BLOOD SPECIMENOrdering Facility: [facility] Address: [address] [place] [address] Performed By: #### 5 7021-8 ####[facility] LABORATORYCLIA [id number] [address] Nucleated RBC/100 WBC (Bld) [Ratio] 0.0 /100 WBC Normal [facility] Comment on above: Order Comment: Speci men Type: BLOOD SPECIMENOrdering Facility: [facility] Address: [address] [place] [address] Performed By: #### 5 7021-8 ####[facility] LABORATORYCLIA [id number] [address] [place] Platelet mean volume (Bld) [Entitic vol] 9.9 fL Normal 9.0-12.7 [facility] Comment on above: Order Comment: Speci men Type: BLOOD SPECIMENOrdering Facility: [facility] Address: [address] [place] [address] Performed By: #### 5 7021-8 ####[facility]ORATORYCLIA [id number] [address] [place] Platelets (Bld) [#/Vol] 391 10*3/uL Normal 150-400 [facility] Comment on above: Order Comment: Speci men Type: BLOOD SPECIMENOrdering Facility: [facility] Address: [address] [place] [address] Performed By: #### 5 7021-8 ####[facility] LABORATORYCLIA [id number] [address] OF [facility] RBC (Bld) [#/Vol] 3.36 10*6/uL Low 4.20-6.00 [facility] Comment on above: Order Comment: Speci men Type: BLOOD SPECIMENOrdering Facility: [facility] Address: [address] [place] [address] Performed By: #### 5 7021-8 ####[facility] LABORATORYCLIA [id number] [address] WBC (Bld) [#/Vol] 9.00 10*3/uL Normal 3.70-11.00 [facility] Comment on above: Order Comment: Speci men Type: BLOOD SPECIMENOrdering Facility: [facility] Address: [address] [place] [address] Performed By: #### 5 7021-8 ####[facility] LABORATORYCLIA [id number] [address] CONSULT PROGon 07-16-2021 CONSULT PROG Normal [facility] [facility] CONSULT PROG Normal [facility] Magnesium SerPl-ncon 07-16 Magnesium [Mass/Vol] 2.3 mg/dL Normal 1.7-2.3 [facility] Comment on above: Order Comment: Speci men Type: BLOOD SPECIMENOrdering Facility: [facility] Address: [address] [place] [address] Performed By: #### 2 777-1, 21843-8, 09227-9 ####[facility] LABORATORYCLIA [id number] [address] NURSING PROGon 07-16-2021 NURSING PROG Normal [facility] Phosphate SerPl-mCncon 07-16 Phosphate [Mass/Vol] 3.6 mg/dL Normal 2.7-4.8 [facility] Comment on above: Order Comment: Speci men Type: BLOOD SPECIMENOrdering Facility: [facility] Address: [address] [place] [address] Performed By: #### 2 777-1, 38839-3, 31644-4 ####[facility] LABORATORYCLIA [id number] [address] OF [facility] Vancomycin random [Mass/Vol] on 07-16-2021 Vancomycin [Mass/Vol] 16.9 ug/mL Normal 10.0-20.0 [facility] Comment on above: Order Comment: Speci men Type: BLOOD SPECIMENOrdering Facility: [facility] Address: [address] [place] [address] Result Comment: Refe rence ranges and high/low indicator flags are provided as general guidelines only. The treating physician must determine appropriate target levels/dosing based on the specific clinical situation. Performed By: #### 4 091-5 ####[facility]ORATORYCLIA [id number] [address] [place] aPTT PPPon 07-16-2021 aPTT Coag (PPP) [Time] 57.2 s High 23.0-32.4 [facility] Comment on above: Order Comment: Speci men Type: BLOOD SPECIMENOrdering Facility: [facility] Address: [address] [place] [address] Performed By: #### 1 4979-9 ####[facility]ORATORYCLIA [id number] [address] [place] ALLIED HEALTHon 07-15-2021 ALLIED HEALTH Normal [facility] Basic metabolic 2000 panelon 07-15-2021 Anion gap [Moles/Vol] 11 mmol/L Normal 9-18 [facility] Comment on above: Order Comment: Speci men Type: BLOOD SPECIMENOrdering Facility: [facility] Address: [address] [place] [address] Performed By: #### 2 4321-2, 60403-7, 2776-05 ####[facility] LABORATORYCLIA [id number] [place] [address] [place] Calcium [Mass/Vol] 8.8 mg/dL Normal 8.5-10.2 [facility] Comment on above: Order Comment: Speci men Type: BLOOD SPECIMENOrdering Facility: [facility] Address: [address] [place] [address] Performed By: #### 2 4321-2, , 2776-05 ####[facility]ORATORYCLIA [id number] [place] [address] [place] Chloride [Moles/Vol] 101 mmol/L Normal 97-105 [facility] Comment on above: Order Comment: Speci men Type: BLOOD SPECIMENOrdering Facility: [facility] Address: [address] [place] [address] Performed By: #### 2 4320-2, , 2776-05 ####[facility]ORATORYCLIA [id number] [place] [address] [place] CO2 [Moles/Vol] 31 mmol/L High 22-30 [facility] Comment on above: Order Comment: Speci men Type: BLOOD SPECIMENOrdering Facility: [facility] Address: [address] [place] [address] Performed By: #### 2 4320-2, , 2776-05 ####[facility]ORATORYCLIA [id number] [place] [address] [place] Creatinine [Mass/Vol] 0.76 mg/dL Normal 0.73-1.22 [facility] Comment on above: Order Comment: Speci men Type: BLOOD SPECIMENOrdering Facility: [facility] Address: [address] [place] [address] Performed By: #### 2 4321-2, , 2776-05 ####[facility] LABORATORYCLIA [id number] [address] [place] ESTIMATED GLOMERULAR FILTRATION RATE 97 mL/min/1.73m??? Normal >=60 [facility] Comment on above: Order Comment: Shira feldman Type: BLOOD SPECIMENOrdering Facility: [facility] Address: [address] [place], [place] [id number] Result Comment: Luzmaria mated Glomerular Filtration Rate [...] actual GFR. Performed By: #### 2 4321-2, 62304-3, 2776-05 ####[facility]STERCLIA [id number] [place] [address] [place] Glucose [Mass/Vol] 115 mg/dL High 74-99 [facility] Comment on above: Order Comment: Shiar feldman Type: BLOOD SPECIMENOrdering Facility: [facility] Address: [address] [place] [address] Result Comment: The [place] [employer] (ADA) [...] Performed By: #### 2 4321-2, , 2776-05 ####[facility]ORATORYCLIA [id number] [place] [id number] [place] Potassium [Moles/Vol] 4.0 mmol/L Normal 3.7-5.1 [facility] Comment on above: Order Comment: Speci men Type: BLOOD SPECIMENOrdering Facility: [facility] Address: [address] [place] [address] Performed By: #### 2 4321-2, , 2776-05 ####[facility]ORATORYCLIA [id number] [address] STATES OF [facility] Sodium [Moles/Vol] 143 mmol/L Normal 136-144 [facility] Comment on above: Order Comment: Speci men Type: BLOOD SPECIMENOrdering Facility: [facility] Address: [address] [place] [address] Performed By: #### 2 4321-2, , 2776-05 ####[facility]ORATORYCLIA [id number] [address] [place] Urea nitrogen [Mass/Vol] 17 mg/dL Normal 9-24 [facility] Comment on above: Order Comment: Speci men Type: BLOOD SPECIMENOrdering Facility: [facility] Address: [address] [place] [address] Performed By: #### 2 4321-2, , 2776-05 ####[facility]ORATORYCLIA [id number] [address] [place] CASE MANAGEMon 07-15-2021 CASE MANAGEM Normal [facility] CBC panel Auto (Bld)on 07-15 Erythrocyte distribution width (RBC) [Ratio] 16.4 % High 11.5-15.0 [facility] Comment on above: Order Comment: Speci men Type: BLOOD SPECIMENOrdering Facility: [facility] Address: [address] [place] [address] Performed By: #### 5 8410-2 ####[facility]ORATORYCLIA [id number] [address] [place] Hematocrit (Bld) [Volume fraction] 30.3 % Low 39.0-51.0 [facility] Comment on above: Order Comment: Speci men Type: BLOOD SPECIMENOrdering Facility: [facility] Address: [address] [place] [address] Performed By: #### 5 8410-2 ####[facility]ORATORYCLIA [id number] [address] Hemoglobin (Bld) [Mass/Vol] 9.2 g/dL Low 13.0-17.0 [facility] Comment on above: Order Comment: Speci men Type: BLOOD SPECIMENOrdering Facility: [facility] Address: [address] [place] [address] Performed By: #### 5 8410-2 ####[facility]ORATORYCLIA [id number] [address] STATES [facility] MCH (RBC) [Entitic mass] 28.3 pg Normal 26.0-34.0 [facility] Comment on above: Order Comment: Speci men Type: BLOOD SPECIMENOrdering Facility: [facility] Address: [address] [place] [address] Performed By: #### 5 8410-2 ####[facility]ORATORYCLIA [id number] [address] MCHC (RBC) [Mass/Vol] 30.4 g/dL Low 30.5-36.0 [facility] Comment on above: Order Comment: Speci men Type: BLOOD SPECIMENOrdering Facility: [facility] Address: [address] [place] [address] Performed By: #### 5 8410-2 ####[facility]ORATORYCLIA [id number] [address] MCV (RBC) [Entitic vol] 93.2 fL Normal 80.0-100.0 [facility] Comment on above: Order Comment: Speci men Type: BLOOD SPECIMENOrdering Facility: [facility] Address: [address] [place] [address] Performed By: #### 5 8410-2 ####[facility]ORATORYCLIA [id number] [address] Nucleated RBC (Bld) [#/Vol] 10*3/uL Normal <0.01 [facility] Comment on above: Order Comment: Speci men Type: BLOOD SPECIMENOrdering Facility: [facility] Address: [address] [place] [address] Performed By: #### 5 8410-2 ####[facility]ORATORYCLIA [id number] [address] [place] Platelet mean volume (Bld) [Entitic vol] 9.9 fL Normal 9.0-12.7 [facility] Comment on above: Order Comment: Speci men Type: BLOOD SPECIMENOrdering Facility: [facility] Address: [address] [place] [address] Performed By: #### 5 8410-2 ####[facility]ORATORYCLIA [id number] [address] [place] Platelets (Bld) [#/Vol] 381 10*3/uL Normal 150-400 [facility] Comment on above: Order Comment: Speci men Type: BLOOD SPECIMENOrdering Facility: [facility] Address: [address] [place] [address] Performed By: #### 5 8410-2 ####[facility]ORATORYCLIA [id number] [address] [place] RBC (Bld) [#/Vol] 3.25 10*6/uL Low 4.20-6.00 [facility] Comment on above: Order Comment: Speci men Type: BLOOD SPECIMENOrdering Facility: [facility] Address: [address] [place], [place] [address] Performed By: #### 5 8410-2 ####[facility]ORATORYCLIA [id number] [address] [place] WBC (Bld) [#/Vol] 8.80 10*3/uL Normal 3.70-11.00 [facility] Comment on above: Order Comment: Speci men Type: BLOOD SPECIMENOrdering Facility: [facility] Address: [address] [place] [address] Performed By: #### 5 8410-2 ####[facility]ORATORYCLIA [id number] [address] Magnesium SerPl-mCncon 07-15 Magnesium [Mass/Vol] 2.2 mg/dL Normal 1.7-2.3 [facility] Comment on above: Order Comment: Speci men Type: BLOOD SPECIMENOrdering Facility: [facility] Address: [address] [place] [address] Performed By: #### 2 4321-2, , 2776-05 ####[facility]ORATORYCLIA [id number] [address] NURSING PROGon 07-15-2021 NURSING PROG Normal [facility] NURSING PROG Normal [facility] NURSING PROG Normal [facility] NUTRITIONon 07-15-2021 NUTRITION Normal [facility] Phosphate SerPl-mCncon 07-15 Phosphate [Mass/Vol] 3.4 mg/dL Normal 2.7-4.8 [facility] Comment on above: Order Comment: Speci men Type: BLOOD SPECIMENOrdering Facility: [facility] Address: [address] [place] [address] Performed By: #### 2 4321-2, , 2776-05 ####[facility]ORATORYCLIA [id number] [address] [place] THERAPY NTon 07-15-2021 THERAPY [...] Comment: Speci men Type: BLOOD SPECIMENOrdering Facility: [facility] Address: [address] [place] [address] Performed By: #### 1 4979-9 ####[facility]ORATORYCLIA [id number] [place] [address] [place] Basic metabolic 2000 panelon 07-14-2021 Anion gap [Moles/Vol] 9 mmol/L Normal 9-18 [facility] Comment on above: Order Comment: Speci men Type: BLOOD SPECIMENOrdering Facility: [facility] Address: [address] [place] [address] Performed By: #### 1 9123-9, 2777, 23141-4 ####[facility]ORATORYCLIA [id number] [place] [address] [place] Calcium [Mass/Vol] 8.5 mg/dL Normal 8.5-10.2 [facility] Comment on above: Order Comment: Speci men Type: BLOOD SPECIMENOrdering Facility: [facility] Address: [address] [place] [address] Performed By: #### 1 9123-9, 2777, 86501-4 ####[facility]ORATORYCLIA [id number] [place] [address] [place] Chloride [Moles/Vol] 99 mmol/L Normal 97-105 [facility] Comment on above: Order Comment: Speci men Type: BLOOD SPECIMENOrdering Facility: [facility] Address: [address] [place] [address] Performed By: #### 1 9123-9, 27711-04, 22913-7 ####[facility]ORATORYCLIA [id number] [place] [address] [place] CO2 [Moles/Vol] 31 mmol/L High 22-30 [facility] Comment on above: Order Comment: Speci men Type: BLOOD SPECIMENOrdering Facility: [facility] Address: [address] [place] [address] Performed By: #### 1 9123-9, 2777-1, 49198-2 ####[facility]ORATORYCLIA [id number] [place] [address] [place] Creatinine [Mass/Vol] 0.74 mg/dL Normal 0.73-1.22 [facility] Comment on above: Order Comment: Shira feldman Type: BLOOD SPECIMENOrdering Facility: [facility] Address: [address] [place] [address] Performed By: #### 1 9123-9, 2777-1, 94166-7 ####[facility]ORATORYCLIA [id number] [address] OF [facility] ESTIMATED GLOMERULAR FILTRATION RATE 98 mL/min/1.73m??? Normal >=60 [facility] Comment on above: Order Comment: Shira feldman Type: BLOOD SPECIMENOrdering Facility: [facility] Address: [address] [place] [address] Result Comment: Luzmaria mated Glomerular Filtration Rate [...] GFR. Performed By: #### 1 9123-9, 2777-1, 32997-9 ####[facility]STERCLIA [id number] [address] STATES OF [facility] Glucose [Mass/Vol] 117 mg/dL High 74-99 [facility] Comment on above: Order Comment: Shira feldman Type: BLOOD SPECIMENOrdering Facility: [facility] Address: [address] Result Comment: The [place] [employer] (ADA) [...] 1). Performed By: #### 1 9123-9, 2777-, 63147-2 ####[facility]ORATORYCLIA [id number] [place] [address] [place] Potassium [Moles/Vol] 3.7 mmol/L Normal 3.7-5.1 [facility] Comment on above: Order Comment: Speci men Type: BLOOD SPECIMENOrdering Facility: [facility] Address: [address] [place] [address] Performed By: #### 1 9123-9, 2777-, 29990-3 ####[facility]ORATORYCLIA [id number] [address] STATES OF [facility] Sodium [Moles/Vol] 139 mmol/L Normal 136-144 [facility] Comment on above: Order Comment: Johni men Type: BLOOD SPECIMENOrdering Facility: [facility] Address: [address] [place] [address] Performed By: #### 1 9123-9, 2777, 15206-7 ####[facility]ORATORYCLIA [id number] [address] STATES [facility] Urea nitrogen [Mass/Vol] 16 mg/dL Normal 9-24 [facility] Comment on above: Order Comment: Speci men Type: BLOOD SPECIMENOrdering Facility: [facility] Address: [address] [place] [address] Performed By: #### 1 9123-9, 2777-, 75160-6 ####[facility]ORATORYCLIA [id number] [address] [place] CBC panel Auto (Bld)on 07-14 Erythrocyte distribution width (RBC) [Ratio] 16.2 % High 11.5-15.0 [facility] Comment on above: Order Comment: Speci men Type: BLOOD SPECIMENOrdering Facility: [facility] Address: [address] [place] [address] Performed By: #### 5 8410-2 ####[facility]ORATORYCLIA [id number] [address] Hematocrit (Bld) [Volume fraction] 29.7 % Low 39.0-51.0 [facility] Comment on above: Order Comment: Speci men Type: BLOOD SPECIMENOrdering Facility: [facility] Address: [address] [place] [address] Performed By: #### 5 8410-2 ####[facility]ORATORYCLIA [id number] [address] Hemoglobin (Bld) [Mass/Vol] 8.8 g/dL Low 13.0-17.0 [facility] Comment on above: Order Comment: Speci men Type: BLOOD SPECIMENOrdering Facility: [facility] Address: [address] [place] [address] Performed By: #### 5 8410-2 ####[facility]ORATORYCLIA [id number] [address] MCH (RBC) [Entitic mass] 27.5 pg Normal 26.0-34.0 [facility] Comment on above: Order Comment: Speci men Type: BLOOD SPECIMENOrdering Facility: [facility] Address: [address] [place] [address] Performed By: #### 5 8410-2 ####[facility]ATORYCLIA [id number] [address] MCHC (RBC) [Mass/Vol] 29.6 g/dL Low 30.5-36.0 [facility] Comment on above: Order Comment: Speci men Type: BLOOD SPECIMENOrdering Facility: [facility] Address: [address] [place] [address] Performed By: #### 5 8410-2 ####[facility]ORATORYCLIA [id number] [address] MCV (RBC) [Entitic vol] 92.8 fL Normal 80.0-100.0 [facility] Comment on above: Order Comment: Speci men Type: BLOOD SPECIMENOrdering Facility: [facility] Address: [address] [place] [address] Performed By: #### 5 8410-2 ####[facility]ORATORYCLIA [id number] [address] [place] Nucleated RBC (Bld) [#/Vol] 10*3/uL Normal <0.01 [facility] Comment on above: Order Comment: Speci men Type: BLOOD SPECIMENOrdering Facility: [facility] Address: [address] [place] [address] Performed By: #### 5 8410-2 ####[facility]ORATORYCLIA [id number] [address] [place] Platelet mean volume (Bld) [Entitic vol] 9.6 fL Normal 9.0-12.7 [facility] Comment on above: Order Comment: Speci men Type: BLOOD SPECIMENOrdering Facility: [facility] Address: [address] [place] [address] Performed By: #### 5 8410-2 ####[facility]ORATORYCLIA [id number] [address] [place] Platelets (Bld) [#/Vol] 354 10*3/uL Normal 150-400 [facility] Comment on above: Order Comment: Speci men Type: BLOOD SPECIMENOrdering Facility: [facility] Address: [address] [place], [place] [address] Performed By: #### 5 8410-2 ####[facility]ORATORYCLIA [id number] [address] [place] RBC (Bld) [#/Vol] 3.20 10*6/uL Low 4.20-6.00 [facility] Comment on above: Order Comment: Speci men Type: BLOOD SPECIMENOrdering Facility: [facility] Address: [address] [place] [address] Performed By: #### 5 8410-2 ####[facility]ORATORYCLIA [id number] [address] WBC (Bld) [#/Vol] 9.41 10*3/uL Normal 3.70-11.00 [facility] Comment on above: Order Comment: Speci men Type: BLOOD SPECIMENOrdering Facility: [facility] Address: [address] [place] [address] Performed By: #### 5 8410-2 ####[facility]ORATORYCLIA [id number] [address] CONSULT PROGon 07-14-2021 CONSULT PROG Normal [facility] Magnesium SerPl-ncon 07-14 Magnesium [Mass/Vol] 2.2 mg/dL Normal 1.7-2.3 [facility] Comment on above: Order Comment: Speci men Type: BLOOD SPECIMENOrdering Facility: [facility] Address: [address] [place] [address] Performed By: #### 1 9123-9, 2777-1, 05547-5 ####[facility]ORATORYCLIA [id number] [address] NURSING PROGon 07-14-2021 NURSING PROG Normal [facility] Phosphate SerPl-mCncon 07-14 Phosphate [Mass/Vol] 3.6 mg/dL Normal 2.7-4.8 [facility] Comment on above: Order Comment: Speci men Type: BLOOD SPECIMENOrdering Facility: [facility] Address: [address] [place] [address] Performed By: #### 1 9123-9, 2777-1, 62843-8 ####[facility]ORATORYCLIA [id number] [address] aPTT PPPon 07-14-2021 aPTT Coag (PPP) [Time] 62.9 s High 23.0-32.4 [facility] Comment on above: Order Comment: Speci men Type: BLOOD SPECIMENOrdering Facility: [facility] Address: [address] [place] [address] Performed By: #### 1 4979-9 ####[facility]ATORYCLIA [id number] [address] aPTT Coag (PPP) [Time] 55.2 s High 23.0-32.4 [facility] Comment on above: Order Comment: Speci men Type: BLOOD SPECIMENOrdering Facility: [facility] Address: [address] [place] [address] Performed By: #### 1 4979-9 ####[facility]ORATORYCLIA [id number] [address] [place] Basic metabolic 2000 panelon 07-13-2021 Anion gap [Moles/Vol] 10 mmol/L Normal 9-18 [facility] Comment on above: Order Comment: Speci men Type: BLOOD SPECIMENOrdering Facility: [facility] Address: [address] [place] [address] Performed By: #### 1 9123-9, 2777-1, 11956-3 ####[facility]CLIA [id number] [place] [address] [place] Calcium [Mass/Vol] 8.5 mg/dL Normal 8.5-10.2 [facility] Comment on above: Order Comment: Speci men Type: BLOOD SPECIMENOrdering Facility: [facility] Address: [address] [place] [address] Performed By: #### 1 9123-9, 2777-1, 89751-4 ####[facility]ORATORYCLIA [id number] [place] [address] [place] Chloride [Moles/Vol] 98 mmol/L Normal 97-105 [facility] Comment on above: Order Comment: Speci men Type: BLOOD SPECIMENOrdering Facility: [facility] Address: [address] [place] [address] Performed By: #### 1 9123-9, 2776-05, ####[facility]CLIA [id number] [place] [address] [place] CO2 [Moles/Vol] 32 mmol/L High 22-30 [facility] Comment on above: Order Comment: Speci men Type: BLOOD SPECIMENOrdering Facility: [facility] Address: [address] [place] [address] Performed By: #### 1 9123-9, 2776-05, ####[facility]STERCLIA [id number] [place] [id number] [place] [facility] Creatinine [Mass/Vol] 0.75 mg/dL Normal 0.73-1.22 [facility] Comment on above: Order Comment: Speci men Type: BLOOD SPECIMENOrdering Facility: [facility] Address: [address] [place] [address] Performed By: #### 1 9123-9, 2776-05, ####[facility]PITAL[facility] [id number] [address] ESTIMATED GLOMERULAR FILTRATION RATE 98 mL/min/1.73m??? Normal >=60 [facility] Comment on above: Order Comment: Speci men Type: BLOOD SPECIMENOrdering Facility: [facility] Address: [address] [place] [address] Result Comment: Luzmaria mated Glomerular Filtration Rate [...] GFR. Performed By: #### 1 9123-9, 27711-04, ####[facility] LABORATORYCLIA [id number] [place] [id number] [place] Glucose [Mass/Vol] 118 mg/dL High 74-99 [facility] Comment on above: Order Comment: Speci men Type: BLOOD SPECIMENOrdering Facility: [facility] Address: [address] [place], [place] [id number] Result Comment: [employer] [place] [employer] (ADA) [...] 1). Performed By: #### 1 9123-9, 2777-, 82273-9 ####[facility] LABORATORYCLIA [id number] [place] [address] [place] Potassium [Moles/Vol] 3.6 mmol/L Low 3.7-5.1 [facility] Comment on above: Order Comment: Speci men Type: BLOOD SPECIMENOrdering Facility: [facility] Address: [address] [place], [place] [address] Performed By: #### 1 9123-9, 2777-, 14654-2 ####[facility] LABORATORYCLIA [id number] [place] [address] [place] Sodium [Moles/Vol] 140 mmol/L Normal 136-144 [facility] Comment on above: Order Comment: Speci men Type: BLOOD SPECIMENOrdering Facility: [facility] Address: [address] [place], [place] [address] Performed By: #### 1 9123-9, 2777, 63379-1 ####[facility] LABORATORYCLIA [id number] [place] [address] [place] Urea nitrogen [Mass/Vol] 15 mg/dL Normal 9-24 [facility] Comment on above: Order Comment: Speci men Type: BLOOD SPECIMENOrdering Facility: [facility] Address: [address] [place] [address] Performed By: #### 1 9123-9, 2777-1, 09465-3 ####[facility] LABORATORYCLIA [id number] [address] [place] CASE MANAGEMon 07-13-2021 CASE MANAGEM Normal [facility] CBC panel Auto (Bld)on 07-13 Erythrocyte distribution width (RBC) [Ratio] 16.2 % High 11.5-15.0 [facility] Comment on above: Order Comment: Speci men Type: BLOOD SPECIMENOrdering Facility: [facility] Address: [address] [place] [address] Performed By: #### 5 8410-2 ####[facility] LABORATORYCLIA [id number] [address] [place] Hematocrit (Bld) [Volume fraction] 29.5 % Low 39.0-51.0 [facility] Comment on above: Order Comment: Speci men Type: BLOOD SPECIMENOrdering Facility: [facility] Address: [address] [place] [address] Performed By: #### 5 8410-2 ####[facility] LABORATORYCLIA [id number] [address] [place] Hemoglobin (Bld) [Mass/Vol] 8.9 g/dL Low 13.0-17.0 [facility] Comment on above: Order Comment: Speci men Type: BLOOD SPECIMENOrdering Facility: [facility] Address: [address] [place] [address] Performed By: #### 5 8410-2 ####[facility] LABORATORYCLIA [id number] [address] [place] MCH (RBC) [Entitic mass] 27.8 pg Normal 26.0-34.0 [facility] Comment on above: Order Comment: Speci men Type: BLOOD SPECIMENOrdering Facility: [facility] Address: [address] [place] [address] Performed By: #### 5 8410-2 ####[facility]ORATORYCLIA [id number] [address] STATES [facility] MCHC (RBC) [Mass/Vol] 30.2 g/dL Low 30.5-36.0 [facility] Comment on above: Order Comment: Speci men Type: BLOOD SPECIMENOrdering Facility: [facility] Address: [address] [place] [address] Performed By: #### 5 8410-2 ####[facility] LABORATORYCLIA [id number] [address] [place] MCV (RBC) [Entitic vol] 92.2 fL Normal 80.0-100.0 [facility] Comment on above: Order Comment: Speci men Type: BLOOD SPECIMENOrdering Facility: [facility] Address: [address] [place] [address] Performed By: #### 5 8410-2 ####[facility]ORATORYCLIA [id number] [address] Nucleated RBC (Bld) [#/Vol] 10*3/uL Normal <0.01 [facility] Comment on above: Order Comment: Speci men Type: BLOOD SPECIMENOrdering Facility: [facility] Address: [address] [place] [address] Performed By: #### 5 8410-2 ####[facility]ORATORYCLIA [id number] [address] [place] Platelet mean volume (Bld) [Entitic vol] 9.8 fL Normal 9.0-12.7 [facility] Comment on above: Order Comment: Speci men Type: BLOOD SPECIMENOrdering Facility: [facility] Address: [address] [place] [address] Performed By: #### 5 8410-2 ####[facility]ORATORYCLIA [id number] [address] [place] Platelets (Bld) [#/Vol] 356 10*3/uL Normal 150-400 [facility] Comment on above: Order Comment: Speci men Type: BLOOD SPECIMENOrdering Facility: [facility] Address: [address] [place] [address] Performed By: #### 5 8410-2 ####[facility]ORATORYCLIA [id number] [address] STATES OF [facility] RBC (Bld) [#/Vol] 3.20 10*6/uL Low 4.20-6.00 [facility] Comment on above: Order Comment: Speci men Type: BLOOD SPECIMENOrdering Facility: [facility] Address: [address] [place] [address] Performed By: #### 5 8410-2 ####[facility]ORATORYCLIA [id number] [address] WBC (Bld) [#/Vol] 9.20 10*3/uL Normal 3.70-11.00 [facility] Comment on above: Order Comment: Speci men Type: BLOOD SPECIMENOrdering Facility: [facility] Address: [address] [place] [address] Performed By: #### 5 8410-2 ####[facility]ORATORYCLIA [id number] [address] CONSULT PROGon 07-13-2021 CONSULT PROG Normal [facility] CONSULT PROG Normal [facility] CONSULT PROG Normal [facility] Magnesium SerPl-mCncon 07-13 Magnesium [Mass/Vol] 2.1 mg/dL Normal 1.7-2.3 [facility] Comment on above: Order Comment: Speci men Type: BLOOD SPECIMENOrdering Facility: [facility] Address: [address] [place] [address] Performed By: #### 1 9123-9, 2777-1, 86784-1 ####[facility]ORATORYCLIA [id number] [address] OF [facility] Phosphate SerPl-mCncon 07-13 Phosphate [Mass/Vol] 3.7 mg/dL Normal 2.7-4.8 [facility] Comment on above: Order Comment: Speci men Type: BLOOD SPECIMENOrdering Facility: [facility] Address: [address] [place] [address] Performed By: #### 1 9123-9, 2777-1, 49773-9 ####[facility]ORATORYCLIA [id number] [address] OF [facility] THERAPY NTon 07-13-2021 THERAPY NT Normal [facility] THERAPY NT Normal [facility] Vancomycin random [Mass/Vol] on 07-13-2021 Vancomycin [Mass/Vol] 31.7 ug/mL High 10.0-20.0 [facility] Comment on above: Order Comment: Speci men Type: BLOOD SPECIMENOrdering Facility: [facility] Address: [address] [place] [address] Result Comment: Refe rence ranges and high/low indicator flags are provided as general guidelines only. The treating physician must determine appropriate target levels/dosing based on the specific clinical situation. Performed By: #### 4 091-5 ####[facility]ORATORYCLIA [id number] [address] [place] [facility] aPTT PPPon 07-13-2021 aPTT Coag (PPP) [Time] 47.3 s High 23.0-32.4 [facility] Comment on above: Order Comment: Speci men Type: BLOOD SPECIMENOrdering Facility: [facility] Address: [address] [place] [address] Performed By: #### 1 4979-9 ####[facility]ORATORYCLIA [id number] [address] aPTT Coag (PPP) [Time] 51.2 s High 23.0-32.4 [facility] Comment on above: Order Comment: Speci men Type: BLOOD SPECIMENOrdering Facility: [facility] Address: [address] [place] [address] Performed By: #### 1 4979-9 ####[facility]STERCLIA [id number] [place] [address] [place] aPTT Coag (PPP) [Time] 47.5 s High 23.0-32.4 [facility] Comment on above: Order Comment: Speci men Type: BLOOD SPECIMENOrdering Facility: [facility] Address: [address] [place] [address] Performed By: #### 1 4979-9 ####[facility]ORATORYCLIA [id number] [place] [address] [place] Basic metabolic 2000 panelon 07-12-2021 Anion gap [Moles/Vol] 7 mmol/L Low 9-18 [facility] Comment on above: Order Comment: Speci men Type: BLOOD SPECIMENOrdering Facility: [facility] Address: [address] [place] [address] Performed By: #### 1 9123-9, 2777, 40788-1 ####[facility]STERCLIA [id number] [place] [address] [place] Calcium [Mass/Vol] 8.3 mg/dL Low 8.5-10.2 [facility] Comment on above: Order Comment: Speci men Type: BLOOD SPECIMENOrdering Facility: [facility] Address: [address] [place] [address] Performed By: #### 1 9123-9, 2777-, 93320-0 ####[facility]ORATORYCLIA [id number] [place] [address] [place] Chloride [Moles/Vol] 101 mmol/L Normal 97-105 [facility] Comment on above: Order Comment: Speci men Type: BLOOD SPECIMENOrdering Facility: [facility] Address: [address] [place] [address] Performed By: #### 1 9123-9, 2777-, 38565-7 ####[facility]ORATORYCLIA [id number] [place] [address] [place] CO2 [Moles/Vol] 32 mmol/L High 22-30 [facility] Comment on above: Order Comment: Speci men Type: BLOOD SPECIMENOrdering Facility: [facility] Address: [address] [place] [address] Performed By: #### 1 9123-9, 2777, 59109-8 ####[facility]ORATORYCLIA [id number] [place] [address] [place] Creatinine [Mass/Vol] 0.70 mg/dL Low 0.73-1.22 [facility] Comment on above: Order Comment: Speci men Type: BLOOD SPECIMENOrdering Facility: [facility] Address: [address] [place] [address] Performed By: #### 1 9123-9, 27711-04, 06105-3 ####[facility]STERCLIA [id number] [address] STATES OF [facility] ESTIMATED GLOMERULAR FILTRATION RATE 100 mL/min/1.73m??? Normal >=60 [facility] Comment on above: Order Comment: Speci men Type: BLOOD SPECIMENOrdering Facility: [facility] Address: [address] [place] [address] Result Comment: Luzmaria mated Glomerular Filtration Rate [...] GFR. Performed By: #### 1 9123-9, 2777, 66390-3 ####[facility]ORATORYCLIA [id number] [place] [id number] [place] Glucose [Mass/Vol] 104 mg/dL High 74-99 [facility] Comment on above: Order Comment: Speci men Type: BLOOD SPECIMENOrdering Facility: [facility] Address: [address] [place] [address] Result Comment: The [place] [employer] (ADA) [...] 1). Performed By: #### 1 9123-9, 2777-, 11017-4 ####[facility]ORATORYCLIA [id number] [place] [address] [place] Potassium [Moles/Vol] 3.7 mmol/L Normal 3.7-5.1 [facility] Comment on above: Order Comment: Shira feldman Type: BLOOD SPECIMENOrdering Facility: [facility] Address: [address] [place] [place] [address] Performed By: #### 1 9123-9, 2777, 29880-2 ####[facility]ORATORYCLIA [id number] [place] [address] [place] Sodium [Moles/Vol] 140 mmol/L Normal 136-144 [facility] Comment on above: Order Comment: Shira feldman Type: BLOOD SPECIMENOrdering Facility: [facility] Address: [address] [place] [address] Performed By: #### 1 9123-9, 2777-, 93667-5 ####[facility]ORATORYCLIA [id number] [place] [address] [place] Urea nitrogen [Mass/Vol] 12 mg/dL Normal 9-24 [facility] Comment on above: Order Comment: Shira men Type: BLOOD SPECIMENOrdering Facility: [facility] Address: [address] [place] [address] Performed By: #### 1 9123-9, 2777, 31078-4 ####[facility]ORATORYCLIA [id number] [address] STATES [facility] CBC panel Auto (Bld)on 07-12 Erythrocyte distribution width (RBC) [Ratio] 16.1 % High 11.5-15.0 [facility] Comment on above: Order Comment: Speci men Type: BLOOD SPECIMENOrdering Facility: [facility] Address: [address] [place] [address] Performed By: #### 5 8410-2 ####[facility]ORATORYCLIA [id number] [address] Hematocrit (Bld) [Volume fraction] 28.2 % Low 39.0-51.0 [facility] Comment on above: Order Comment: Speci men Type: BLOOD SPECIMENOrdering Facility: [facility] Address: [address] [place] [address] Performed By: #### 5 8410-2 ####[facility]ORATORYCLIA [id number] [address] Hemoglobin (Bld) [Mass/Vol] 8.5 g/dL Low 13.0-17.0 [facility] Comment on above: Order Comment: Speci men Type: BLOOD SPECIMENOrdering Facility: [facility] Address: [address] [place] [address] Performed By: #### 5 8410-2 ####[facility]ORATORYCLIA [id number] [address] STATES [facility] MCH (RBC) [Entitic mass] 26.8 pg Normal 26.0-34.0 [facility] Comment on above: Order Comment: Speci men Type: BLOOD SPECIMENOrdering Facility: [facility] Address: [address] [place] [address] Performed By: #### 5 8410-2 ####[facility]ORATORYCLIA [id number] [address] STATES [facility] MCHC (RBC) [Mass/Vol] 30.1 g/dL Low 30.5-36.0 [facility] Comment on above: Order Comment: Speci men Type: BLOOD SPECIMENOrdering Facility: [facility] Address: [address] Performed By: #### 5 8410-2 ####[facility]ORATORYCLIA [id number] [address] OF [facility] MCV (RBC) [Entitic vol] 89.0 fL Normal 80.0-100.0 [facility] Comment on above: Order Comment: Speci men Type: BLOOD SPECIMENOrdering Facility: [facility] Address: [address] [place], [place] [address] Performed By: #### 5 8410-2 ####[facility]ORATORYCLIA [id number] [address] STATES [place] [facility] Nucleated RBC (Bld) [#/Vol] 10*3/uL Normal <0.01 [facility] Comment on above: Order Comment: Speci men Type: BLOOD SPECIMENOrdering Facility: [facility] Address: [address] [place] [address] Performed By: #### 5 8410-2 ####[facility]ORATORYCLIA [id number] [address] Platelet mean volume (Bld) [Entitic vol] 9.6 fL Normal 9.0-12.7 [facility] Comment on above: Order Comment: Speci men Type: BLOOD SPECIMENOrdering Facility: [facility] Address: [address] Performed By: #### 5 8410-2 ####[facility]ORATORYCLIA [id number] [address] [place] Platelets (Bld) [#/Vol] 340 10*3/uL Normal 150-400 [facility] Comment on above: Order Comment: Speci men Type: BLOOD SPECIMENOrdering Facility: [facility] Address: [address] Performed By: #### 5 8410-2 ####[facility]ORATORYCLIA [id number] [address] [place] RBC (Bld) [#/Vol] 3.17 10*6/uL Low 4.20-6.00 [facility] Comment on above: Order Comment: Speci men Type: BLOOD SPECIMENOrdering Facility: [facility] Address: [address] [place] [address] Performed By: #### 5 8410-2 ####[facility]ORATORYCLIA [id number] [address] WBC (Bld) [#/Vol] 8.66 10*3/uL Normal 3.70-11.00 [facility] Comment on above: Order Comment: Speci men Type: BLOOD SPECIMENOrdering Facility: [facility] Address: [address] [place] [address] Performed By: #### 5 8410-2 ####[facility]ORATORYCLIA [id number] [address] CONSULTon 07-12-2021 CONSULT Normal [facility] CONSULT PROGon 07-12-2021 CONSULT PROG Normal [facility] Magnesium SerPl-mCncon 07-12 Magnesium [Mass/Vol] 2.1 mg/dL Normal 1.7-2.3 [facility] Comment on above: Order Comment: Speci men Type: BLOOD SPECIMENOrdering Facility: [facility] Address: [address] [place] [address] Performed By: #### 1 9123-9, 2777-1, 71839-8 ####[facility]ORATORYCLIA [id number] [address] NURSING PROGon 07-12-2021 NURSING PROG Normal [facility] Phosphate SerPl-mCncon 07-12 Phosphate [Mass/Vol] 3.1 mg/dL Normal 2.7-4.8 [facility] Comment on above: Order Comment: Speci men Type: BLOOD SPECIMENOrdering Facility: [facility] Address: [address] [place] [address] Performed By: #### 1 9123-9, 2777-1, 82622-7 ####[facility]ORATORYCLIA [id number] [address] OF [facility] THERAPY NTon 07-12-2021 THERAPY NT Normal [facility] aPTT PPPon 07-12-2021 aPTT Coag (PPP) [Time] 49.5 s High 23.0-32.4 [facility] Comment on above: Order Comment: Speci men Type: BLOOD SPECIMENOrdering Facility: [facility] Address: [address] [place] [address] Performed By: #### 1 4979-9 ####[facility]ORATORYCLIA [id number] [address] aPTT Coag (PPP) [Time] 68.0 s High 23.0-32.4 [facility] Comment on above: Order Comment: Speci men Type: BLOOD SPECIMENOrdering Facility: [facility] Address: [address] [place] [address] Performed By: #### 1 4979-9 ####[facility]ATORYCLIA [id number] [address] aPTT Coag (PPP) [Time] 80.0 s High 23.0-32.4 [facility] Comment on above: Order Comment: Speci men Type: BLOOD SPECIMENOrdering Facility: [facility] Address: [address] [place] [address] Performed By: #### 1 4979-9 ####[facility]ORATORYCLIA [id number] [address] OF [facility] CASE MGT INIT ASSESon 2021 CASE MGT INIT ASSES Normal [facility] CBC panel Auto (Bld)on 07-11 Erythrocyte distribution width (RBC) [Ratio] 16.3 % High 11.5-15.0 [facility] Comment on above: Order Comment: Speci men Type: BLOOD SPECIMENOrdering Facility: [facility] Address: [address] [place] [address] Performed By: #### 5 8410-2 ####[facility]ORATORYCLIA [id number] [address] Hematocrit (Bld) [Volume fraction] 28.3 % Low 39.0-51.0 [facility] Comment on above: Order Comment: Speci men Type: BLOOD SPECIMENOrdering Facility: [facility] Address: [address] [place] [address] Performed By: #### 5 8410-2 ####[facility]ORATORYCLIA [id number] [address] OF [facility] Hemoglobin (Bld) [Mass/Vol] 8.8 g/dL Low 13.0-17.0 [facility] Comment on above: Order Comment: Speci men Type: BLOOD SPECIMENOrdering Facility: [facility] Address: [address] [place] [address] Performed By: #### 5 8410-2 ####[facility]ORATORYCLIA [id number] [address] OF [facility] MCH (RBC) [Entitic mass] 27.4 pg Normal 26.0-34.0 [facility] Comment on above: Order Comment: Speci men Type: BLOOD SPECIMENOrdering Facility: [facility] Address: [address] [place] [address] Performed By: #### 5 8410-2 ####[facility]ORATORYCLIA [id number] [address] [place] MCHC (RBC) [Mass/Vol] 31.1 g/dL Normal 30.5-36.0 [facility] Comment on above: Order Comment: Speci men Type: BLOOD SPECIMENOrdering Facility: [facility] Address: [address] [place] [address] Performed By: #### 5 8410-2 ####[facility]ORATORYCLIA [id number] [address] MCV (RBC) [Entitic vol] 88.2 fL Normal 80.0-100.0 [facility] Comment on above: Order Comment: Speci men Type: BLOOD SPECIMENOrdering Facility: [facility] Address: [address] [place] [address] Performed By: #### 5 8410-2 ####[facility]ORATORYCLIA [id number] [address] Nucleated RBC (Bld) [#/Vol] 10*3/uL Normal <0.01 [facility] Comment on above: Order Comment: Speci men Type: BLOOD SPECIMENOrdering Facility: [facility] Address: [address] [place] [address] Performed By: #### 5 8410-2 ####[facility]ORATORYCLIA [id number] [address] STATES [facility] Platelet mean volume (Bld) [Entitic vol] 9.7 fL Normal 9.0-12.7 [facility] Comment on above: Order Comment: Speci men Type: BLOOD SPECIMENOrdering Facility: [facility] Address: [address] [place] [address] Performed By: #### 5 8410-2 ####[facility]ATORYCLIA [id number] [address] [place] Platelets (Bld) [#/Vol] 315 10*3/uL Normal 150-400 [facility] Comment on above: Order Comment: Speci men Type: BLOOD SPECIMENOrdering Facility: [facility] Address: [address] [place] [address] Performed By: #### 5 8410-2 ####[facility]ATORYCLIA [id number] [address] [place] RBC (Bld) [#/Vol] 3.21 10*6/uL Low 4.20-6.00 [facility] Comment on above: Order Comment: Speci men Type: BLOOD SPECIMENOrdering Facility: [facility] Address: [address] [place], [place] [address] [address] Performed By: #### 5 8410-2 ####[facility]ATORYCLIA [id number] [address] OF [facility] WBC (Bld) [#/Vol] 9.18 10*3/uL Normal 3.70-11.00 [facility] Comment on above: Order Comment: Speci men Type: BLOOD SPECIMENOrdering Facility: [facility] Address: [address] [place] [address] Performed By: #### 5 8410-2 ####[facility]ORATORYCLIA [id number] [address] OF [facility] CONSULT PROGon 07-11-2021 CONSULT PROG Normal [facility] CT BRAIN WO IVCONon 07-12-[address] BRAIN WO IVCON Normal [facility] Magnesium SerPl-mCncon 07-11 Magnesium [Mass/Vol] 2.1 mg/dL Normal 1.7-2.3 [facility] Comment on above: Order Comment: Speci men Type: BLOOD SPECIMENOrdering Facility: [facility] Address: [address] [place] [address] Performed By: #### 1 9123-9, 2777-1 ####[facility] LABORATORYCLIA [id number] [address] NURSING PROGon 07-11-2021 NURSING PROG Normal [facility] NURSING PROG Normal [facility] Phosphate SerPl-mCncon 07-11 Phosphate [Mass/Vol] 3.4 mg/dL Normal 2.7-4.8 [facility] Comment on above: Order Comment: Speci men Type: BLOOD SPECIMENOrdering Facility: [facility] Address: [address] [place], [place] [address] [address] Performed By: #### 1 9123-9, 2777-1 ####[facility]ORATORYCLIA [id number] [address] OF [place] THERAPY NTon 07-11-2021 THERAPY NT Normal [facility] Vancomycin random [Mass/Vol] on 07-11-2021 Vancomycin [Mass/Vol] 28.6 ug/mL High 10.0-20.0 [facility] Comment on above: Order Comment: Speci men Type: BLOOD SPECIMENOrdering Facility: [facility] Address: [address] [place] [address] Result Comment: Refe rence ranges and high/low indicator flags are provided as general guidelines only. The treating physician must determine appropriate target levels/dosing based on the specific clinical situation. Performed By: #### 4 091-5 ####[facility] LABORATORYCLIA [id number] [address] aPTT PPPon 07-11-2021 aPTT Coag (PPP) [Time] 62.0 s High 23.0-32.4 [facility] Comment on above: Order Comment: Speci men Type: BLOOD SPECIMENOrdering Facility: [facility] Address: [address] [place] [address] Performed By: #### 1 4979-9 ####[facility] LABORATORYCLIA [id number] [address] aPTT Coag (PPP) [Time] 52.7 s High 23.0-32.4 [facility] Comment on above: Order Comment: Speci men Type: BLOOD SPECIMENOrdering Facility: [facility] Address: [address] [place] [address] Performed By: #### 1 4979-9 ####[facility] LABORATORYCLIA [id number] [address] aPTT Coag (PPP) [Time] 29.9 s Normal 23.0-32.4 [facility] Comment on above: Order Comment: Speci men Type: BLOOD SPECIMENOrdering Facility: [facility] Address: [address] [place] [address] Performed By: #### 1 4979-9 ####[facility] LABORATORYCLIA [id number] [place] [address] [place] Basic metabolic 2000 panelon 07-10-2021 Anion gap [Moles/Vol] 14 mmol/L Normal 9-18 [facility] Comment on above: Order Comment: Speci men Type: BLOOD SPECIMENOrdering Facility: [facility] Address: [address] [place] [address] Performed By: #### 1 9123-9, 2777-1, 93830-3 ####[facility]ORATORYCLIA [id number] [place] [address] [place] Calcium [Mass/Vol] 8.5 mg/dL Normal 8.5-10.2 [facility] Comment on above: Order Comment: Speci men Type: BLOOD SPECIMENOrdering Facility: [facility] Address: [address] [place] [address] Performed By: #### 1 9123-9, 2777-1, 55363-1 ####[facility]ORATORYCLIA [id number] [address] STATES OF [facility] Chloride [Moles/Vol] 100 mmol/L Normal 97-105 [facility] Comment on above: Order Comment: Speci men Type: BLOOD SPECIMENOrdering Facility: [facility] Address: [address] [place] [address] Performed By: #### 1 9123-9, 27771, 81839-6 ####[facility]ORATORYCLIA [id number] [place] [address] [place] CO2 [Moles/Vol] 27 mmol/L Normal 22-30 [facility] Comment on above: Order Comment: Speci men Type: BLOOD SPECIMENOrdering Facility: [facility] Address: [address] [place] [address] Performed By: #### 1 9123-9, 2777-1, 38797-8 ####[facility]ORATORYCLIA [id number] [place] [address] [place] Creatinine [Mass/Vol] 0.66 mg/dL Low 0.73-1.22 [facility] Comment on above: Order Comment: Shira feldman Type: BLOOD SPECIMENOrdering Facility: [facility] Address: [address] [id number] Performed By: #### 1 9123-9, 2777-1, 85583-6 ####[facility] LABORATORYCLIA [id number] [place] [id number] [place] ESTIMATED GLOMERULAR FILTRATION RATE 102 mL/min/1.73m??? Normal >=60 [facility] Comment on above: Order Comment: Johncara feldman Type: BLOOD SPECIMENOrdering Facility: [facility] Address: [address] Result Comment: Luzmaria mated Glomerular Filtration [...] GFR. Performed By: #### 1 9123-9, 2777-1, 30889-9 ####[facility]ORATORYCLIA [id number] [place] [address] [place] Glucose [Mass/Vol] 93 mg/dL Normal 74-99 [facility] Comment on above: Order Comment: Shira feldman Type: BLOOD SPECIMENOrdering Facility: [facility] Address: [address] [place] [address] Result Comment: The [place] [employer] (ADA) [...] 1). Performed By: #### 1 9123-9, 2777-1, 00142-9 ####[facility]ORATORYCLIA [id number] [address] STATES OF [facility] Potassium [Moles/Vol] 3.5 mmol/L Low 3.7-5.1 [facility] Comment on above: Order Comment: Speci men Type: BLOOD SPECIMENOrdering Facility: [facility] Address: [address] [place] [address] Performed By: #### 1 9123-9, 2777-1, 71744-0 ####[facility]ORATORYCLIA [id number] [address] [place] [facility] Sodium [Moles/Vol] 141 mmol/L Normal 136-144 [facility] Comment on above: Order Comment: Speci men Type: BLOOD SPECIMENOrdering Facility: [facility] Address: [address] [place] [address] Performed By: #### 1 9123-9, 2777-, 23735-0 ####[facility]UNSTERCLIA [id number] [address] STATES [facility] Urea nitrogen [Mass/Vol] 11 mg/dL Normal 9-24 [facility] Comment on above: Order Comment: Speci men Type: BLOOD SPECIMENOrdering Facility: [facility] Address: [address] [place] [address] Performed By: #### 1 9123-9, 2777-, 54289-7 ####[facility]ORATORYCLIA [id number] [address] [place] CBC panel Auto (Bld)on 07-10 Erythrocyte distribution width (RBC) [Ratio] 16.2 % High 11.5-15.0 [facility] Comment on above: Order Comment: Speci men Type: BLOOD SPECIMENOrdering Facility: [facility] Address: [address] [place] [address] Performed By: #### 5 8410-2 ####[facility]ORATORYCLIA [id number] [address] Hematocrit (Bld) [Volume fraction] 30.6 % Low 39.0-51.0 [facility] Comment on above: Order Comment: Speci men Type: BLOOD SPECIMENOrdering Facility: [facility] Address: [address] [place] [address] Performed By: #### 5 8410-2 ####[facility]ORATORYCLIA [id number] [address] Hemoglobin (Bld) [Mass/Vol] 9.6 g/dL Low 13.0-17.0 [facility] Comment on above: Order Comment: Speci men Type: BLOOD SPECIMENOrdering Facility: [facility] Address: [address] [place] [address] Performed By: #### 5 8410-2 ####[facility]ORATORYCLIA [id number] [address] MCH (RBC) [Entitic mass] 28.3 pg Normal 26.0-34.0 [facility] Comment on above: Order Comment: Speci men Type: BLOOD SPECIMENOrdering Facility: [facility] Address: [address] [place] [address] Performed By: #### 5 8410-2 ####[facility]ORATORYCLIA [id number] [address] STATES [facility] MCHC (RBC) [Mass/Vol] 31.4 g/dL Normal 30.5-36.0 [facility] Comment on above: Order Comment: Speci men Type: BLOOD SPECIMENOrdering Facility: [facility] Address: [address] [place] [address] Performed By: #### 5 8410-2 ####[facility]ORATORYCLIA [id number] [address] MCV (RBC) [Entitic vol] 90.3 fL Normal 80.0-100.0 [facility] Comment on above: Order Comment: Speci men Type: BLOOD SPECIMENOrdering Facility: [facility] Address: [address] Performed By: #### 5 8410-2 ####[facility]ORATORYCLIA [id number] [address] Nucleated RBC (Bld) [#/Vol] 10*3/uL Normal <0.01 [facility] Comment on above: Order Comment: Speci men Type: BLOOD SPECIMENOrdering Facility: [facility] Address: [address] [address] Performed By: #### 5 8410-2 ####[facility]ORATORYCLIA [id number] [address] [place] Platelet mean volume (Bld) [Entitic vol] 9.7 fL Normal 9.0-12.7 [facility] Comment on above: Order Comment: Speci men Type: BLOOD SPECIMENOrdering Facility: [facility] Address: [address] [place] [address] Performed By: #### 5 8410-2 ####[facility]ORATORYCLIA [id number] [address] [place] Platelets (Bld) [#/Vol] 306 10*3/uL Normal 150-400 [facility] Comment on above: Order Comment: Speci men Type: BLOOD SPECIMENOrdering Facility: [facility] Address: [address] Performed By: #### 5 8410-2 ####[facility]ORATORYCLIA [id number] [address] [place] RBC (Bld) [#/Vol] 3.39 10*6/uL Low 4.20-6.00 [facility] Comment on above: Order Comment: Speci men Type: BLOOD SPECIMENOrdering Facility: [facility] Address: [address] [place] [address] Performed By: #### 5 8410-2 ####[facility]ORATORYCLIA [id number] [address] [place] WBC (Bld) [#/Vol] 9.81 10*3/uL Normal 3.70-11.00 [facility] Comment on above: Order Comment: Speci men Type: BLOOD SPECIMENOrdering Facility: [facility] Address: [address] [place] [address] Performed By: #### 5 8410-2 ####[facility]ORATORYCLIA [id number] [address] [place] CONSULTon 07-10-2021 CONSULT Normal [facility] CONSULT Normal [facility] Magnesium SerPl-mCncon 07-10 Magnesium [Mass/Vol] 1.9 mg/dL Normal 1.7-2.3 [facility] Comment on above: Order Comment: Speci men Type: BLOOD SPECIMENOrdering Facility: [facility] Address: [address] [place] [address] Performed By: #### 1 9123-9, 2777-1, 30850-4 ####[facility]ORATORYCLIA [id number] [address] [place] NURSING PROGon 07-10-2021 NURSING PROG Normal [facility] NURSING PROG Normal [facility] NUTRITIONon 07-10-2021 NUTRITION Normal [facility] Phosphate SerPl-mCncon 07-10 Phosphate [Mass/Vol] 3.6 mg/dL Normal 2.7-4.8 [facility] Comment on above: Order Comment: Speci men Type: BLOOD SPECIMENOrdering Facility: [facility] Address: [address] [place] [address] Performed By: #### 1 9123-9, 2777-1, 71375-3 ####[facility]ATORYCLIA [id number] [address] [place] US DVT LOWER BILon US DVT LOWER RAINER Normal [facility] aPTT PPPon 07-10-2021 aPTT Coag (PPP) [Time] 28.8 s Normal 23.0-32.4 [facility] Comment on above: Order Comment: Speci men Type: BLOOD SPECIMENOrdering Facility: [facility] Address: [address] [place] [address] Performed By: #### 1 4979-9 ####[facility]ORATORYCLIA [id number] [address] [place] aPTT Coag (PPP) [Time] 28.4 s Normal 23.0-32.4 [facility] Comment on above: Order Comment: Speci men Type: BLOOD SPECIMENOrdering Facility: [facility] Address: [address] [place] [address] Performed By: #### 1 4979-9 ####[facility]ORATORYCLIA [id number] [address] [place] ALLIED HEALTHon 07-09-2021 ALLIED HEALTH Normal [facility] Basic metabolic 2000 panelon 07-09-2021 Anion gap [Moles/Vol] 9 mmol/L Normal 9-18 [facility] Comment on above: Order Comment: Speci men Type: BLOOD SPECIMENOrdering Facility: [facility] Address: [address] [place] [address] Performed By: #### 1 9123-9, 2777-1, 98699-3 ####[facility]UNSTERCLIA [id number] [place] [address] [place] Calcium [Mass/Vol] 8.3 mg/dL Low 8.5-10.2 [facility] Comment on above: Order Comment: Speci men Type: BLOOD SPECIMENOrdering Facility: [facility] Address: [address] [place] [address] Performed By: #### 1 9123-9, 2777-1, 22601-2 ####[facility]ORATORYCLIA [id number] [place] [address] [place] Chloride [Moles/Vol] 100 mmol/L Normal 97-105 [facility] Comment on above: Order Comment: Speci men Type: BLOOD SPECIMENOrdering Facility: [facility] Address: [address] [place], [place] [address] Performed By: #### 1 9123-9, 2777-1, 48766-1 ####[facility]CLIA [id number] [address] STATES [place] [facility] CO2 [Moles/Vol] 29 mmol/L Normal 22-30 [facility] Comment on above: Order Comment: Speci men Type: BLOOD SPECIMENOrdering Facility: [facility] Address: [address] [place] [address] Performed By: #### 1 9123-9, 2777, 57550-7 ####[facility]CLIA [id number] [address] Creatinine [Mass/Vol] 0.61 mg/dL Low 0.73-1.22 [facility] Comment on above: Order Comment: Speci men Type: BLOOD SPECIMENOrdering Facility: [facility] Address: [address] [place] [address] Performed By: #### 1 9123-9, 27711-04, 42594-4 ####[facility]ITALIA [id number] [address] ESTIMATED GLOMERULAR FILTRATION RATE 104 mL/min/1.73m??? Normal >=60 [facility] Comment on above: Order Comment: Speci men Type: BLOOD SPECIMENOrdering Facility: [facility] Address: [address] [place] [address] Result Comment: Luzmaria mated Glomerular Filtration Rate [...] GFR. Performed By: #### 1 9123-9, 2777-1, 16657-1 ####[facility]ORATORYCLIA [id number] [place] [address] [place] Glucose [Mass/Vol] 106 mg/dL High 74-99 [facility] Comment on above: Order Comment: Speccara men Type: BLOOD SPECIMENOrdering Facility: [facility] Address: [address] [place], [place] [phone] Result Comment: The [place] [employer] (ADA) [...] 1). Performed By: #### 1 9123-9, 2777-, 56944-7 ####[facility]ORATORYCLIA [id number] [place] [address] [place] Potassium [Moles/Vol] 3.6 mmol/L Low 3.7-5.1 [facility] Comment on above: Order Comment: Shira feldman Type: BLOOD SPECIMENOrdering Facility: [facility] Address: [address] [place] [address] [place], [place] [phone] Performed By: #### 1 9123-9, 2777-, 60060-4 ####[facility]ORATORYCLIA [id number] [place] [address] [place] Sodium [Moles/Vol] 138 mmol/L Normal 136-144 [facility] Comment on above: Order Comment: Shira feldman Type: BLOOD SPECIMENOrdering Facility: [facility] Address: [address] [place], [place] [phone] Performed By: #### 1 9123-9, 2777-, 61500-4 ####[facility]ORATORYCLIA [id number] [place] [address] [place] Urea nitrogen [Mass/Vol] 12 mg/dL Normal 9-24 [facility] Comment on above: Order Comment: Speci men Type: BLOOD SPECIMENOrdering Facility: [facility] Address: [address] [place] [address] Performed By: #### 1 9123-9, 2777-1, 16369-4 ####[facility]ORATORYCLIA [id number] [address] [place] [facility] CBC panel Auto (Bld)on 07-09 Erythrocyte distribution width (RBC) [Ratio] 16.2 % High 11.5-15.0 [facility] Comment on above: Order Comment: Speci men Type: BLOOD SPECIMENOrdering Facility: [facility] Address: [address] [place] [address] Performed By: #### 5 8410-2 ####[facility]ORATORYCLIA [id number] [address] STATES [facility] Hematocrit (Bld) [Volume fraction] 29.0 % Low 39.0-51.0 [facility] Comment on above: Order Comment: Speci men Type: BLOOD SPECIMENOrdering Facility: [facility] Address: [address] [place] [address] Performed By: #### 5 8410-2 ####[facility]ORATORYCLIA [id number] [address] [place] Hemoglobin (Bld) [Mass/Vol] 8.8 g/dL Low 13.0-17.0 [facility] Comment on above: Order Comment: Speci men Type: BLOOD SPECIMENOrdering Facility: [facility] Address: [address] [place] [address] Performed By: #### 5 8410-2 ####[facility]ORATORYCLIA [id number] [address] MCH (RBC) [Entitic mass] 27.0 pg Normal 26.0-34.0 [facility] Comment on above: Order Comment: Speci men Type: BLOOD SPECIMENOrdering Facility: [facility] Address: [address] [place] [address] Performed By: #### 5 8410-2 ####[facility]ORATORYCLIA [id number] [address] STATES [facility] MCHC (RBC) [Mass/Vol] 30.3 g/dL Low 30.5-36.0 [facility] Comment on above: Order Comment: Speci men Type: BLOOD SPECIMENOrdering Facility: [facility] Address: [address] [place] [address] Performed By: #### 5 8410-2 ####[facility]ORATORYCLIA [id number] [address] [place] MCV (RBC) [Entitic vol] 89.0 fL Normal 80.0-100.0 [facility] Comment on above: Order Comment: Speci men Type: BLOOD SPECIMENOrdering Facility: [facility] Address: [address] [place] [address] Performed By: #### 5 8410-2 ####[facility]ORATORYCLIA [id number] [address] [place] [facility] Nucleated RBC (Bld) [#/Vol] 10*3/uL Normal <0.01 [facility] Comment on above: Order Comment: Speci men Type: BLOOD SPECIMENOrdering Facility: [facility] Address: [address] [place] [address] Performed By: #### 5 8410-2 ####[facility]ORATORYCLIA [id number] [address] STATES [facility] Platelet mean volume (Bld) [Entitic vol] 9.8 fL Normal 9.0-12.7 [facility] Comment on above: Order Comment: Speci men Type: BLOOD SPECIMENOrdering Facility: [facility] Address: [address] [place] [address] Performed By: #### 5 8410-2 ####[facility]ORATORYCLIA [id number] [place] [address] [place] Platelets (Bld) [#/Vol] 281 10*3/uL Normal 150-400 [facility] Comment on above: Order Comment: Speci men Type: BLOOD SPECIMENOrdering Facility: [facility] Address: [address] [place] [address] Performed By: #### 5 8410-2 ####[facility]ORATORYCLIA [id number] [place] [address] [place] RBC (Bld) [#/Vol] 3.26 10*6/uL Low 4.20-6.00 [facility] Comment on above: Order Comment: Speci men Type: BLOOD SPECIMENOrdering Facility: [facility] Address: [address] [place] [address] Performed By: #### 5 8410-2 ####[facility]ORATORYCLIA [id number] [address] WBC (Bld) [#/Vol] 9.12 10*3/uL Normal 3.70-11.00 [facility] Comment on above: Order Comment: Speci men Type: BLOOD SPECIMENOrdering Facility: [facility] Address: [address] [place] [address] Performed By: #### 5 8410-2 ####[facility]ORATORYCLIA [id number] [address] CONSULT PROGon 07-09-2021 CONSULT PROG Normal [facility] CONSULT PROG Normal [facility] HISTORY PHYSICALon 2 HISTORY PHYSICAL Normal [facility] Magnesium SerPl-mCncon 07-09 Magnesium [Mass/Vol] 1.9 mg/dL Normal 1.7-2.3 [facility] Comment on above: Order Comment: Speci men Type: BLOOD SPECIMENOrdering Facility: [facility] Address: [address] [place] [address] Performed By: #### 1 9123-9, 2777-1, 89635-0 ####[facility]ORATORYCLIA [id number] [address] [place] Phosphate SerPl-mCncon 07-09 Phosphate [Mass/Vol] 3.6 mg/dL Normal 2.7-4.8 [facility] Comment on above: Order Comment: Speci men Type: BLOOD SPECIMENOrdering Facility: [facility] Address: [address] [place] [phone] Performed By: #### 1 9123-9, 2777-1, 47500-0 ####[facility]ORATORYCLIA [id number] [address] [place] THERAPY NTon 07-09-2021 THERAPY NT Normal [facility] XR ABDOMEN 1V SUPINEon 07-09 XR ABDOMEN 1V SUPINE Normal [facility] ALLIED HEALTHon 07-08-2021 ALLIED HEALTH Normal [facility] [...] on above: Performed By: #### 6 00-7 ####[facility]ORATORYCLIA [id number] [address] [place] Bacteria identified Cx Nom (Bld) CULTURE, BLOOD: No growth 5 days Normal [facility] Comment on above: Performed By: #### 6 00-7 ####[facility]ORATORYCLIA [id number] [place] [address] [place] Bacteria CSF Culton 07-09-19 22 Bacteria identified Cx Nom (CSF) CULTURE, CSF: No growth 14 days GRAM STAIN: No organisms seen No Polymorphonuclear Leukocytes Few Red Blood Cells Gram stain performed on cytospun specimen. [facility] Comment on above: Performed By: #### 6 06-4 ####[facility]ORATORYCLIA [id number] [place] [address] [place] Bacteria Ur Culton 2 Bacteria identified Cx Nom (U) ORGANISM ID: 1 10,000 -<50,000 CFU/ml Proteus species Insignificant colony count. No further workup. ORGANISM ID: 2 <10,000 CFU/ml Normal urogenital chris Normal [facility] Comment on above: Performed By: #### 6 30-4 ####[facility]ATORYCLIA [id number] [place] [address] [place] Bacteria Wnd Culton 07-09-19 22 Bacteria identified Cx Nom (Wound) ORGANISM ID: 1 Coagulase negative staphylococcus Growth in Enrichment Broth Only No susceptibility testing done. Call lab within 72 hours to initiate work-up if clinically indicated. GRAM STAIN: Account credited. Not performed on this specimen type. Normal [facility] Comment on above: Performed By: #### 6 462-6 ####[facility]ATORYCLIA [id number] [address] Bacteria identified Cx Nom (Wound) ORGANISM ID: 1 Rare Coagulase negative staphylococcus No susceptibility testing done. Call lab within 72 hours to initiate work-up if clinically indicated. GRAM STAIN: Account credited. Not performed on this specimen type. Normal [facility] Comment on above: Performed By: #### 6 462-6 ####[facility]ATORYCLIA [id number] [address] [place] Bacteria identified Cx Nom (Wound) CULTURE, INTRAOPERATIVE HARDWARE: No growth 14 days GRAM STAIN: Account credited. Not performed on this specimen type. Normal [facility] Comment on above: Performed By: #### 6 462-6 ####[facility]ATORYCLIA [id number] [place] [address] [place] Basic metabolic 2000 panelon 07-08-2021 Anion gap [Moles/Vol] 9 mmol/L Normal 9-18 [facility] Comment on above: Order Comment: Speci men Type: BLOOD SPECIMENOrdering Facility: [facility] Address: [address] [place] [id number] Performed By: #### 2 4321-2 ####[facility] LABORATORYCLIA [id number] [place] [address] [place] Calcium [Mass/Vol] 8.5 mg/dL Normal 8.5-10.2 [facility] Comment on above: Order Comment: Speci men Type: BLOOD SPECIMENOrdering Facility: [facility] Address: [address] [place] [address] Performed By: #### 2 4321-2 ####[facility] LABORATORYCLIA [id number] [place] [address] [place] Chloride [Moles/Vol] 98 mmol/L Normal 97-105 [facility] Comment on above: Order Comment: Speci men Type: BLOOD SPECIMENOrdering Facility: [facility] Address: [address] [place] [address] Performed By: #### 2 4321-2 ####[facility] LABORATORYCLIA [id number] [address] [place] CO2 [Moles/Vol] 31 mmol/L High 22-30 [facility] Comment on above: Order Comment: Speci men Type: BLOOD SPECIMENOrdering Facility: [facility] Address: [address] [place] [address] Performed By: #### 2 4321-2 ####[facility] LABORATORYCLIA [id number] [address] [place] Creatinine [Mass/Vol] 0.64 mg/dL Low 0.73-1.22 [facility] Comment on above: Order Comment: Speci men Type: BLOOD SPECIMENOrdering Facility: [facility] Address: [address] [place] [address] Performed By: #### 2 4321-2 ####[facility] LABORATORYCLIA [id number] [address] ESTIMATED GLOMERULAR FILTRATION RATE 102 mL/min/1.73m??? Normal >=60 [facility] Comment on above: Order Comment: Speci men Type: BLOOD SPECIMENOrdering Facility: [facility] Address: [address] [place], [place] [id number] Result Comment: Luzmaria mated Glomerular Filtration Rate [...] actual GFR. Performed By: #### 2 4321-2 ####[facility] LABORATORYCLIA [id number] [place] [address] [place] Glucose [Mass/Vol] 114 mg/dL High 74-99 [facility] Comment on above: Order Comment: Shira feldman Type: BLOOD SPECIMENOrdering Facility: [facility] Address: [address] [place] [address] Result Comment: The [place] [employer] (ADA) [...] 2016.39(Suppl 1). Performed By: #### 2 4321-2 ####[facility]ORATORYCLIA [id number] [place] [address] [place] Potassium [Moles/Vol] 3.4 mmol/L Low 3.7-5.1 [facility] Comment on above: Order Comment: Shira feldman Type: BLOOD SPECIMENOrdering Facility: [facility] Address: [address] [address] Performed By: #### 2 4321-2 ####[facility] LABORATORYCLIA [id number] [place] [id number] [place] Sodium [Moles/Vol] 138 mmol/L Normal 136-144 [facility] Comment on above: Order Comment: Speci men Type: BLOOD SPECIMENOrdering Facility: [facility] Address: [address] [place] [address] Performed By: #### 2 4321-2 ####[facility]ORATORYCLIA [id number] [place] [address] [place] Urea nitrogen [Mass/Vol] 14 mg/dL Normal 9-24 [facility] Comment on above: Order Comment: Speci men Type: BLOOD SPECIMENOrdering Facility: [facility] Address: [address] [place] [address] Performed By: #### 2 4321-2 ####[facility] LABORATORYCLIA [id number] [address] STATES OF [facility] CBC W Auto Differential pane l (Bld)on 07-08-2021 Basophils (Bld) [#/Vol] 0.05 10*3/uL Normal <0.11 [facility] Comment on above: Order Comment: Speci men Type: BLOOD SPECIMENOrdering Facility: [facility] Address: [address] [place] [address] Performed By: #### 5 7021-8 ####[facility]ORATORYCLIA [id number] [address] [place] Basophils/100 WBC (Bld) 0.4 % Normal [facility] Comment on above: Order Comment: Speci men Type: BLOOD SPECIMENOrdering Facility: [facility] Address: [address] [place] [address] Performed By: #### 5 7021-8 ####[facility] LABORATORYCLIA [id number] [address] STATES [facility] Differential cell count method Nom (Bld) Auto Normal [facility] Comment on above: Order Comment: Speci men Type: BLOOD SPECIMENOrdering Facility: [facility] Address: [address] [place] [address] Performed By: #### 5 7021-8 ####[facility]ORATORYCLIA [id number] [place] [address] [place] Eosinophils (Bld) [#/Vol] 0.68 10*3/uL High <0.46 [facility] Comment on above: Order Comment: Speci men Type: BLOOD SPECIMENOrdering Facility: [facility] Address: [address] [place] [address] Performed By: #### 5 7021-8 ####[facility]ORATORYCLIA [id number] [address] [place] Eosinophils/100 WBC (Bld) 5.4 % Normal [facility] Comment on above: Order Comment: Speci men Type: BLOOD SPECIMENOrdering Facility: [facility] Address: [address] [place] [address] Performed By: #### 5 7021-8 ####[facility]ORATORYCLIA [id number] [address] [place] Erythrocyte distribution width (RBC) [Ratio] 16.3 % High 11.5-15.0 [facility] Comment on above: Order Comment: Speci men Type: BLOOD SPECIMENOrdering Facility: [facility] Address: [address] [place] [address] Performed By: #### 5 7021-8 ####[facility] LABORATORYCLIA [id number] [address] [place] Hematocrit (Bld) [Volume fraction] 35.7 % Low 39.0-51.0 [facility] Comment on above: Order Comment: Speci men Type: BLOOD SPECIMENOrdering Facility: [facility] Address: [address] [place] [address] Performed By: #### 5 7021-8 ####[facility]ORATORYCLIA [id number] [address] [place] Hemoglobin (Bld) [Mass/Vol] 10.8 g/dL Low 13.0-17.0 [facility] Comment on above: Order Comment: Speci men Type: BLOOD SPECIMENOrdering Facility: [facility] Address: [address] [place] [address] Performed By: #### 5 7021-8 ####[facility]ORATORYCLIA [id number] [address] IMMATURE GRAN % 0.4 % Normal [facility] Comment on above: Order Comment: Speci men Type: BLOOD SPECIMENOrdering Facility: [facility] Address: [address] [place] [address] Performed By: #### 5 7021-8 ####[facility]ORATORYCLIA [id number] [address] IMMATURE GRAN ABS 0.05 k/uL Normal <0.10 [facility] Comment on above: Order Comment: Speci men Type: BLOOD SPECIMENOrdering Facility: [facility] Address: [address] [place] [address] Performed By: #### 5 7021-8 ####[facility]ORATORYCLIA [id number] [address] Lymphocytes (Bld) [#/Vol] 1.85 10*3/uL Normal 1.00-4.00 [facility] Comment on above: Order Comment: Speci men Type: BLOOD SPECIMENOrdering Facility: [facility] Address: [address] [place] [address] Performed By: #### 5 7021-8 ####[facility]ORATORYCLIA [id number] [address] Lymphocytes/100 WBC (Bld) 14.7 % Normal [facility] Comment on above: Order Comment: Speci men Type: BLOOD SPECIMENOrdering Facility: [facility] Address: [address] [place] [address] Performed By: #### 5 7021-8 ####[facility]ORATORYCLIA [id number] [address] [place] MCH (RBC) [Entitic mass] 27.1 pg Normal 26.0-34.0 [facility] Comment on above: Order Comment: Speci men Type: BLOOD SPECIMENOrdering Facility: [facility] Address: [address] [place] [address] Performed By: #### 5 7021-8 ####[facility]ORATORYCLIA [id number] [address] [place] MCHC (RBC) [Mass/Vol] 30.3 g/dL Low 30.5-36.0 [facility] Comment on above: Order Comment: Speci men Type: BLOOD SPECIMENOrdering Facility: [facility] Address: [address] [place] [address] Performed By: #### 5 7021-8 ####[facility]ORATORYCLIA [id number] [address] [place] MCV (RBC) [Entitic vol] 89.7 fL Normal 80.0-100.0 [facility] Comment on above: Order Comment: Speci men Type: BLOOD SPECIMENOrdering Facility: [facility] Address: [address] [place] [address] Performed By: #### 5 7021-8 ####[facility]ORATORYCLIA [id number] [address] [place] Monocytes (Bld) [#/Vol] 0.87 10*3/uL High <0.87 [facility] Comment on above: Order Comment: Speci men Type: BLOOD SPECIMENOrdering Facility: [facility] Address: [address] [place] [address] Performed By: #### 5 7021-8 ####[facility]ORATORYCLIA [id number] [address] Monocytes/100 WBC (Bld) 6.9 % Normal [facility] Comment on above: Order Comment: Speci men Type: BLOOD SPECIMENOrdering Facility: [facility] Address: [address] [place] [address] Performed By: #### 5 7021-8 ####[facility]ORATORYCLIA [id number] [address] [place] Neutrophils (Bld) [#/Vol] 9.05 10*3/uL High 1.45-7.50 [facility] Comment on above: Order Comment: Speci men Type: BLOOD SPECIMENOrdering Facility: [facility] Address: [address] [address] Performed By: #### 5 7021-8 ####[facility]ORATORYCLIA [id number] [address] [place] Neutrophils/100 WBC (Bld) 72.2 % Normal [facility] Comment on above: Order Comment: Speci men Type: BLOOD SPECIMENOrdering Facility: [facility] Address: [address] [place] [address] Performed By: #### 5 7021-8 ####[facility]ORATORYCLIA [id number] [address] [place] Nucleated RBC (Bld) [#/Vol] 10*3/uL Normal <0.01 [facility] Comment on above: Order Comment: Speci men Type: BLOOD SPECIMENOrdering Facility: [facility] Address: [address] [place] [address] Performed By: #### 5 7021-8 ####[facility]ORATORYCLIA [id number] [address] [place] Nucleated RBC/100 WBC (Bld) [Ratio] 0.0 /100 WBC Normal [facility] Comment on above: Order Comment: Speci men Type: BLOOD SPECIMENOrdering Facility: [facility] Address: [address] [place] [address] Performed By: #### 5 7021-8 ####[facility]ORATORYCLIA [id number] [address] [place] Platelet mean volume (Bld) [Entitic vol] 9.9 fL Normal 9.0-12.7 [facility] Comment on above: Order Comment: Speci men Type: BLOOD SPECIMENOrdering Facility: [facility] Address: [address] [place] [address] Performed By: #### 5 7021-8 ####[facility]ORATORYCLIA [id number] [address] Platelets (Bld) [#/Vol] 335 10*3/uL Normal 150-400 [facility] Comment on above: Order Comment: Speci men Type: BLOOD SPECIMENOrdering Facility: [facility] Address: [address] [place] [address] Performed By: #### 5 7021-8 ####[facility]ORATORYCLIA [id number] [address] OF [facility] RBC (Bld) [#/Vol] 3.98 10*6/uL Low 4.20-6.00 [facility] Comment on above: Order Comment: Speci men Type: BLOOD SPECIMENOrdering Facility: [facility] Address: [address] [place] [address] Performed By: #### 5 7021-8 ####[facility]ORATORYCLIA [id number] [address] WBC (Bld) [#/Vol] 12.55 10*3/uL High 3.70-11.00 [facility] Comment on above: Order Comment: Speci men Type: BLOOD SPECIMENOrdering Facility: [facility] Address: [address] [place] [address] Performed By: #### 5 7021-8 ####[facility]ORATORYCLIA [id number] [address] CK CREATINE KINASEon 022 CK [Catalytic activity/Vol] 72 U/L Normal 51-298 [facility] Comment on above: Order Comment: Speci men Type: BLOOD SPECIMENOrdering Facility: [facility] Address: [address] [place] [address] Performed By: #### Eileen Valdivia, 10353-1 ####[facility]ORATORYCLIA [id number] [address] CONSULT PROGon 07-08-2021 CONSULT PROG Normal [facility] CONSULT PROG Normal [facility] CSF MANUAL DIFFon 07-08-2021 DIF TTL, CSF 3 cells counted Normal [facility] Comment on above: Order Comment: Speci men Type: CEREBROSPINAL FLUIDOrdering Facility: [facility] Address: [address] [place] [address] Performed By: #### 3 4563-7, [id number] ####[facility]ORATORYCLIA [id number] [place] [address] [place] LYMPH%, CSF 33 % Low 50-90 [facility] Comment on above: Order Comment: Speci men Type: CEREBROSPINAL FLUIDOrdering Facility: [facility] Address: [address] [place] [address] Performed By: #### 3 4563-7, [id number] ####[facility]ORATORYCLIA [id number] [place] [address] [place] MONO%, CSF 67 % High 10-50 [facility] Comment on above: Order Comment: Speci men Type: CEREBROSPINAL FLUIDOrdering Facility: [facility] Address: [address] [place] [address] Performed By: #### 3 4563-7, [id number] ####[facility]ORATORYCLIA [id number] [place] [address] [place] ABD/PEL W [...] Comment: Speci men Type: CEREBROSPINAL FLUIDOrdering Facility: [facility] Address: [address] [place] [address] Performed By: #### 3 4563-7, [id number] ####[facility]ORATORYCLIA [id number] [address] [place] Clarity (Unsp spec) Clear Normal Clear [facility] Comment on above: Order Comment: Speci men Type: CEREBROSPINAL FLUIDOrdering Facility: [facility] Address: [address] [address] Performed By: #### 3 4563-7, [id number] ####[facility]ORATORYCLIA [id number] [address] Color (CSF) Colorless Normal Colorless [facility] Comment on above: Order Comment: Speci men Type: CEREBROSPINAL FLUIDOrdering Facility: [facility] Address: [address] [place] [address] Performed By: #### 3 4563-7, [id number] ####[facility]ORATORYCLIA [id number] [address] Color (Spun CSF) Colorless Normal Colorless [facility] Comment on above: Order Comment: Speci men Type: CEREBROSPINAL FLUIDOrdering Facility: [facility] Address: [address] [address] Performed By: #### 3 4563-7, [id number] ####[facility]ORATORYCLIA [id number] [address] CSF [employer] Normal [facility] Comment on above: Order Comment: Speci men Type: CEREBROSPINAL FLUIDOrdering Facility: [facility] Address: [address] [address] Performed By: #### 3 4563-7, [id number] ####[facility]ORATORYCLIA [id number] [address] RBC Manual cnt (CSF) [#/Vol] 94 cells/uL High 0-5 [facility] Comment on above: Order Comment: Speci men Type: CEREBROSPINAL FLUIDOrdering Facility: [facility] Address: [address] [address] Performed By: #### 3 4563-7, [id number] ####[facility]ORATORYCLIA [id number] [address] WBC Manual cnt (CSF) [#/Vol] 1 cells/uL Normal 0-5 [facility] Comment on above: Order Comment: Speci men Type: CEREBROSPINAL FLUIDOrdering Facility: [facility] Address: [address] [place] [address] Performed By: #### 3 4563-7, [id number] ####[facility]ORATORYCLIA [id number] [address] Comprehensive metabolic 2000 panelon 07-08-2021 Albumin [Mass/Vol] 3.6 g/dL Low 3.9-4.9 [facility] Comment on above: Order Comment: Speci men Type: BLOOD SPECIMENOrdering Facility: [facility] Address: [address] [place] [address] Performed By: #### Eileen Valdivia, 15402-8 ####[facility]ORATORYCLIA [id number] [address] STATES [facility] ALP [Catalytic activity/Vol] 125 U/L High 38-113 [facility] Comment on above: Order Comment: Speci men Type: BLOOD SPECIMENOrdering Facility: [facility] Address: [address] [place] [address] Performed By: #### Eileen Valdivia, 66930-5 ####[facility]ORATORYCLIA [id number] [address] ALT With P-5'-P [Catalytic activity/Vol] 24 U/L Normal 10-54 [facility] Comment on above: Order Comment: Speci men Type: BLOOD SPECIMENOrdering Facility: [facility] Address: [address] [place] [address] Performed By: #### Eileen Valdivia, 72251-0 ####[facility]ORATORYCLIA [id number] [address] Anion gap [Moles/Vol] 16 mmol/L Normal 9-18 [facility] Comment on above: Order Comment: Speci men Type: BLOOD SPECIMENOrdering Facility: [facility] Address: [address] [place] [address] Performed By: #### Eileen Valdivia, 77639-1 ####[facility]ORATORYCLIA [id number] [place] [address] [place] AST With P-5'-P [Catalytic activity/Vol] 21 U/L Normal 14-40 [facility] Comment on above: Order Comment: Speci men Type: BLOOD SPECIMENOrdering Facility: [facility] Address: [address] [place] [address] Performed By: #### Eileen Valdivia, 31236-7 ####[facility]ORATORYCLIA [id number] [place] [address] [place] Bilirubin [Mass/Vol] 0.3 mg/dL Normal 0.2-1.3 [facility] Comment on above: Order Comment: Speci men Type: BLOOD SPECIMENOrdering Facility: [facility] Address: [address] [place] [address] Performed By: #### Eileen Valdivia, 32249-9 ####[facility]ORATORYCLIA [id number] [place] [address] [place] Calcium [Mass/Vol] 8.9 mg/dL Normal 8.5-10.2 [facility] Comment on above: Order Comment: Speci men Type: BLOOD SPECIMENOrdering Facility: [facility] Address: [address] [place] [address] Performed By: #### Eileen Valdivia, 51147-6 ####[facility]ORATORYCLIA [id number] [place] [address] [place] Chloride [Moles/Vol] 96 mmol/L Low 97-105 [facility] Comment on above: Order Comment: Speci men Type: BLOOD SPECIMENOrdering Facility: [facility] Address: [address] [place] [address] Performed By: #### Eileen Valdivia, 44093-7 ####[facility]ORATORYCLIA [id number] [place] [address] [place] CO2 [Moles/Vol] 27 mmol/L Normal 22-30 [facility] Comment on above: Order Comment: Speci men Type: BLOOD SPECIMENOrdering Facility: [facility] Address: [address] [place] [address] Performed By: #### Eileen Valdivia, 04238-5 ####[facility] LABORATORYCLIA [id number] [address] [place] Creatinine [Mass/Vol] 0.68 mg/dL Low 0.73-1.22 [facility] Comment on above: Order Comment: Speci men Type: BLOOD SPECIMENOrdering Facility: [facility] Address: [address] [place] [address] Performed By: #### Eileen Valdivia, 44604-3 ####[facility]ORATORYCLIA [id number] [address] ESTIMATED GLOMERULAR FILTRATION RATE 101 mL/min/1.73m??? Normal >=60 [facility] Comment on above: Order Comment: Speci men Type: BLOOD SPECIMENOrdering Facility: [facility] Address: [address] [place] [address] Result Comment: Luzmaria mated Glomerular Filtration Rate [...] actual GFR. Performed By: #### C K, 74355-4 ####[facility] LABORATORYCLIA [id number] [address] OF [facility] Glucose [Mass/Vol] 130 mg/dL High 74-99 [facility] Comment on above: Order Comment: Speci men Type: BLOOD SPECIMENOrdering Facility: [facility] Address: [address] [place] [address] Result Comment: The [place] [employer] (ADA) [...] 2016.39(Suppl 1). Performed By: #### C Skip, 25263-2 ####[facility] LABORATORYCLIA [id number] [place] [address] [place] Potassium [Moles/Vol] 3.9 mmol/L Normal 3.7-5.1 [facility] Comment on above: Order Comment: Speci men Type: BLOOD SPECIMENOrdering Facility: [facility] Address: [address] [place] [address] Performed By: #### Eileen Valdivia, 79703-0 ####[facility]ORATORYCLIA [id number] [place] [address] [place] Protein [Mass/Vol] 7.0 g/dL Normal 6.3-8.0 [facility] Comment on above: Order Comment: Speci men Type: BLOOD SPECIMENOrdering Facility: [facility] Address: [address] [place] [address] Performed By: #### C Skip, 75591-6 ####[facility]ORATORYCLIA [id number] [place] [address] [place] Sodium [Moles/Vol] 139 mmol/L Normal 136-144 [facility] Comment on above: Order Comment: Johni men Type: BLOOD SPECIMENOrdering Facility: [facility] Address: [address] [address] Performed By: #### C Skip, 32853-3 ####[facility]ORATORYCLIA [id number] [address] OF [facility] Urea nitrogen [Mass/Vol] 16 mg/dL Normal 9-24 [facility] Comment on above: Order Comment: Speci men Type: BLOOD SPECIMENOrdering Facility: [facility] Address: [address] [place] [address] [place] [address] Performed By: #### C K, 27679-1 ####[facility]ORATORYCLIA [id number] [address] ED NOTEon 07-08-2021 ED NOTE HNO ID: [id number] Author: Lenora James RN Service: Emergency Medicine Author Type: Registered Nurse Type: ED Notes Filed: 07/08/2021 5:03 PM Note Text: Pt to OR with surgical team [facility] ED NOTE HNO ID: [id number] Author: Lenora James RN Service: Emergency Medicine Author Type: Registered Nurse Type: ED Notes Filed: 07/08/2021 4:50 PM Note Text: OR team to get pt [facility] ED NOTE HNO ID: [id number] Author: Lenora James RN Service: Emergency Medicine Author Type: Registered Nurse Type: ED Notes Filed: 07/08/2021 4:50 PM Note Text: Normal [facility] ED NOTE HNO ID: [id number] Author: Lenora James RN Service: Emergency Medicine Author Type: Registered Nurse Type: ED Notes Filed: 07/08/2021 4:50 PM Note Text: Spoke with presurg; pt to go to OR now [facility] ED NOTE HNO ID: [id number] Author: Lenora James RN Service: Emergency Medicine Author Type: Registered Nurse Type: ED Notes Filed: 07/08/2021 4:12 PM Note Text: Neurosurgery at beside [facility] ED NOTE HNO ID: [id number] Author: Lenora James RN Service: Emergency Medicine Author Type: Registered Nurse Type: ED Notes Filed: 07/08/2021 2:35 PM Note Text: respiratory aware of pt breathing treatments [facility] ED NOTE HNO ID: [id number] Author: Lisa Woo, AYUSH Service: ? Author Type: Registered Nurse Type: ED Notes Filed: 07/08/2021 2:20 PM Note Text: Xray notified pt is ready. Normal [facility] ED NOTE HNO ID: [id number] Author: Lenoar James RN Service: Emergency Medicine Author Type: Registered Nurse Type: ED Notes Filed: 07/08/2021 12:14 PM Note Text: CT notified regarding imaging orders placed Normal [facility] [facility] ED NOTE Normal [facility] ED PROV NOTEon 07-08-2021 ED PROV NOTE Normal [facility] Glucose CSF-mCncon Glucose (CSF) [Mass/Vol] 88 mg/dL High 40-70 [facility] Comment on above: Order Comment: Shira feldman Type: CEREBROSPINAL FLUIDOrdering Facility: [facility] Address: [address] [place] [address] Result Comment: Lumb ar CSF glucose values of healthy patients are approximately 60% of the plasma values and must always be compared with a concurrently measured plasma value for adequate clinical interpretation.References: 1. Glucose HK (GLUC3) [package insert V 12.0 Gambian]. [employer], [place], [place]. September 2015. 2. Michelle Moore, Loki, H. (2015). Chapter 7: Glucose and Lactate. Marianela Alcocer al.(eds.), Cerebrospinal Fluid in Clinical Neurology. [place]: [employer]. Performed By: #### 2 880-3, 2342-4 ####[facility] LABORATORYCLIA [id number] [place] [address] [place] HIGH SENSITIVITY TROPONIN To n 07-08-2021 HIGH SENSITIVITY TAMIKO 27 ng/L High <12 [facility] Comment on above: Order Comment: Shira feldman Type: BLOOD SPECIMENOrdering Facility: [facility] Address: [address] [place], [place] [phone] Result Comment: When assessing risk for acute [...] day MACE. Performed By: #### H STNT ####[facility] LABORATORYCLIA [id number] [address] HIGH SENSITIVITY TAMIKO 36 ng/L High <12 [facility] Comment on above: Order Comment: Speci men Type: BLOOD SPECIMENOrdering Facility: [facility] Address: [address] [place] [address] Result Comment: When assessing risk for acute [...] day MACE. Performed By: #### H STNT ####[facility] LABORATORYIA [id number] [address] HISTORY PHYSICALon HISTORY PHYSICAL Normal [facility] NURSING PROGon 07-08-2021 NURSING PROG Normal [facility] OPERATIVE NOon 07-08-2021 OPERATIVE NO Normal [facility] Prot CSF-mCncon 07-08-2021 Protein (CSF) [Mass/Vol] 33 mg/dL Normal 15-45 [facility] Comment on above: Order Comment: Speci men Type: CEREBROSPINAL FLUIDOrdering Facility: [facility] Address: [address] [place] [address] Performed By: #### 2 880-3, 2342-4 ####[facility] LABORATORYIA [id number] [address] [place] SARS-CoV-2 RNA Resp Ql MEGAN+p robeon 07-08-2021 SARS-CoV-2 (COVID-19) RNA MEGAN+probe Ql (Resp) COVID 19 RESULT: SARS-CoV-2 (Agent of COVID-19) Not Detected by RT-PCR or equivalent method. This test has been authorized by FDA under an Emergency Use Authorization (EUA). Normal [facility] Comment on above: Performed By: #### 9 4500-6 ####[facility] LABORATORYCLIA [id number] [address] STAPH AUREUS PCRon S. aureus and MRSA panel MEGAN+probe (Nose) Normal Negative [facility] Comment on above: Order Comment: Speci men Type: SWAB OF INTERNAL NOSEOrdering Facility: [facility] Address: [address] [place] [address] Result Comment: Nega tive for Staphylococcus aureus by PCR.Negative for MRSA by PCR Performed By: #### S APCR ####[facility] LABORATORYCLIA [id number] [address] Urinalysis complete panel (U )on 07-08-2021 Bacteria LM.HPF (Urine sed) [#/Area] Few Abnormal None Seen [facility] Comment on above: Order Comment: Speci men Type: URINE SPECIMENOrdering Facility: [facility] Address: [address] [place] [address] Performed By: #### 2 4356-8 ####[facility]ORATORYCLIA [id number] [address] Bilirubin Ql (U) Negative Normal Negative [facility] Comment on above: Order Comment: Speci men Type: URINE SPECIMENOrdering Facility: [facility] Address: [address] [place] [address] Performed By: #### 2 4356-8 ####[facility] LABORATORYCLIA [id number] [address] Clarity (Unsp spec) Turbid Abnormal Clear [facility] Comment on above: Order Comment: Speci men Type: URINE SPECIMENOrdering Facility: [facility] Address: [address] [place] [address] Performed By: #### 2 4356-8 ####[facility]ORATORYCLIA [id number] [address] Color (U) Light Yellow Normal yellow [facility] Comment on above: Order Comment: Speci men Type: URINE SPECIMENOrdering Facility: [facility] Address: [address] [place] [address] Performed By: #### 2 4356-8 ####[facility]ORATORYCLIA [id number] [address] Glucose Test strip (U) [Mass/Vol] Negative Normal Negative [facility] Comment on above: Order Comment: Speci men Type: URINE SPECIMENOrdering Facility: [facility] Address: [address] [place] [address] Performed By: #### 2 4356-8 ####[facility]ATORYCLIA [id number] [address] Hemoglobin Ql (U) Negative Normal Negative [facility] Comment on above: Order Comment: Speci men Type: URINE SPECIMENOrdering Facility: [facility] Address: [address] [place] [address] Performed By: #### 2 4356-8 ####[facility]ATORYCLIA [id number] [address] Hyaline casts (Urine sed) [#/Area] 1-3 /LPF Abnormal 0 /LPF [facility] Comment on above: Order Comment: Speci men Type: URINE SPECIMENOrdering Facility: [facility] Address: [address] [place] [address] Performed By: #### 2 4356-8 ####[facility]ATORYCLIA [id number] [address] Ketones Ql (U) Negative Normal Negative [facility] Comment on above: Order Comment: Speci men Type: URINE SPECIMENOrdering Facility: [facility] Address: [address] [place] [address] Performed By: #### 2 4356-8 ####[facility]ORATORYCLIA [id number] [address] Leukocyte esterase Test strip Ql (U) Negative Normal Negative [facility] Comment on above: Order Comment: Speci men Type: URINE SPECIMENOrdering Facility: [facility] Address: [address] [place] [address] Performed By: #### 2 4356-8 ####[facility]ATORYCLIA [id number] [place] [address] [place] Nitrite Ql (U) Negative Normal Negative [facility] Comment on above: Order Comment: Speci men Type: URINE SPECIMENOrdering Facility: [facility] Address: [address] [place] [address] Performed By: #### 2 4356-8 ####[facility]ORATORYCLIA [id number] [address] [place] pH (U) 5.0 [pH] Normal 5.0-8.0 [facility] Comment on above: Order Comment: Speci men Type: URINE SPECIMENOrdering Facility: [facility] Address: [address] [place] [address] Performed By: #### 2 4356-8 ####[facility]ORATORYCLIA [id number] [place] [address] [place] Protein (U) [Mass/Vol] Negative Normal Negative [facility] Comment on above: Order Comment: Speci men Type: URINE SPECIMENOrdering Facility: [facility] Address: [address] [place] [address] Performed By: #### 2 4356-8 ####[facility]ORATORYCLIA [id number] [address] [place] RBC LM.HPF (Urine sed) [#/Area] 11-25 /HPF Abnormal 0-3 /HPF [facility] Comment on above: Order Comment: Speci men Type: URINE SPECIMENOrdering Facility: [facility] Address: [address] [place] [address] Performed By: #### 2 4356-8 ####[facility]ORATORYCLIA [id number] [address] [place] Specific gravity (U) [Rel density] 1.018 Normal 1.005-1.030 [facility] Comment on above: Order Comment: Speci men Type: URINE SPECIMENOrdering Facility: [facility] Address: [address] [place] [address] Performed By: #### 2 4356-8 ####[facility]ORATORYCLIA [id number] [address] Urobilinogen Ql (U) Normal Normal Negative [facility] Comment on above: Order Comment: Speci men Type: URINE SPECIMENOrdering Facility: [facility] Address: [address] [place] [address] Performed By: #### 2 4356-8 ####[facility]STERCLIA [id number] [address] WBC LM.HPF (Urine sed) [#/Area] /[HPF] Abnormal 0-5 /HPF [facility] Comment on above: Order Comment: Speci men Type: URINE SPECIMENOrdering Facility: [facility] Address: [address] [place] [address] Performed By: #### 2 4356-8 ####[facility]ORATORYCLIA [id number] [address] Vancomycin random [Mass/Vol] on 07-08-2021 Vancomycin [Mass/Vol] 31.0 ug/mL High 10.0-20.0 [facility] Comment on above: Order Comment: Speci men Type: BLOOD SPECIMENOrdering Facility: [facility] Address: [address] [place] [address] Result Comment: Refe rence ranges and high/low indicator flags are provided as general guidelines only. The treating physician must determine appropriate target levels/dosing based on the specific clinical situation. Performed By: #### 4 091-5 ####[facility]ORATORYCLIA [id number] [address] [place] XR ABD 2V [...] Hospital HISTORY PHYSICALon HISTORY PHYSICAL HNO ID: [id number] Author: Aym Beltran MD Service: ? Author Type: Physician Type: HANDP Filed: 06/30/2021 6:42 PM Note Text: Connected Care Unit History and Physical Facility: [facility] Level of Care: Skilled Admission Date: June [...] unspecified type, unspecified whether septic shock present ([facility]) - ICD9: 038.9, 995.92, ICD10: A41.9, R65.20 [...] Modafinil for ROSALINO Monitor mental status. Amy Amanambu Prognosis: Rehab potential: Fair I have reviewed [...] regarding the above plan. Total time spent [id number] and/or counseling and coordinating care on the skilled care unit for patient was approximately 45 minutes SUBJECTIVE (HISTORY) Chief Complaint: Confusion, infection, blood clot. Andrew Sifuentes is being seen today for snf facility (SNF) admission AND management of weakness, tube feed, infected retroperitoneal infection and seizure. HPI: This is a 71 year old male who presents from [facility] with primary admitting diagnosis of Seizure, [...] CT brain concerning for hydrocephalus. Tip of HAND ENDBAND CUTTER shunt was found to be in the [...] Status: Fu (more content not included)... Normal [facility] Basic metabolic 2000 panelon 06-28-2021 Anion gap [Moles/Vol] 7 mmol/L Low 9-18 [facility] Comment on above: Order Comment: Speci francia Type: BLOOD SPECIMENOrdering Facility: [facility] Address: [address] [place] [address] Performed By: #### 2 4320-06, ####[facility] LABORATORYCLIA [id number] [place] [address] [place] Calcium [Mass/Vol] 8.8 mg/dL Normal 8.5-10.2 [facility] Comment on above: Order Comment: Shira feldman Type: BLOOD SPECIMENOrdering Facility: [facility] Address: [address] [place] [address] Performed By: #### 2 4320-06, ####[facility]ORATORYCLIA [id number] [place] [address] [place] Chloride [Moles/Vol] 103 mmol/L Normal 97-105 [facility] Comment on above: Order Comment: Speci men Type: BLOOD SPECIMENOrdering Facility: [facility] Address: [address] [place] [address] Performed By: #### 2 4321-2, ####[facility]ORATORYCLIA [id number] [address] [place] CO2 [Moles/Vol] 28 mmol/L Normal 22-30 [facility] Comment on above: Order Comment: Speci men Type: BLOOD SPECIMENOrdering Facility: [facility] Address: [address] [place] [address] Performed By: #### 2 4321-2, ####[facility]ATORYCLIA [id number] [address] [place] Creatinine [Mass/Vol] 0.57 mg/dL Low 0.73-1.22 [facility] Comment on above: Order Comment: Speci men Type: BLOOD SPECIMENOrdering Facility: [facility] Address: [address] [place] [address] Performed By: #### 2 4321-2, ####[facility]ORATORYCLIA [id number] [address] [place] GFR/1.73 sq M.predicted MDRD (S/P/Bld) [Vol rate/Area] mL/min/{1.73_m2} Normal [facility] Comment on above: Order Comment: Speci men Type: BLOOD SPECIMENOrdering Facility: [facility] Address: [address] [place] [address] Result Comment: >60e GFR (Estimated GFR) Units [...] reflect actual GFR. Performed By: #### 2 432 ####[facility]ORATORYCLIA [id number] [place] [address] [place] Glucose [Mass/Vol] 120 mg/dL High 74-99 [facility] Comment on above: Order Comment: Speci men Type: BLOOD SPECIMENOrdering Facility: [facility] Address: [address] [place] [address] Result Comment: The [place] [employer] (ADA) [...] Care. 2016.39(Suppl 1). Performed By: #### 2 ####[facility]ORATORYCLIA [id number] [place] [address] [place] Potassium [Moles/Vol] 3.8 mmol/L Normal 3.7-5.1 [facility] Comment on above: Order Comment: Speci men Type: BLOOD SPECIMENOrdering Facility: [facility] Address: [address] [id number] Performed By: #### 2 ####[facility]ORATORYCLIA [id number] [place] [id number] [place] Sodium [Moles/Vol] 138 mmol/L Normal 136-144 [facility] Comment on above: Order Comment: Speci men Type: BLOOD SPECIMENOrdering Facility: [facility] Address: [address] [id number] Performed By: #### 2 ####[facility]ORATORYCLIA [id number] [address] STATES OF [facility] Urea nitrogen [Mass/Vol] 24 mg/dL Normal 9-24 [facility] Comment on above: Order Comment: Speci men Type: BLOOD SPECIMENOrdering Facility: [facility] Address: [address] [place] [address] Performed By: #### 2 4321-2, 88357-2 ####[facility]ORATORYCLIA [id number] [address] CASE MANAGEMon 06-28-2021 CASE MANAGEM Normal [facility] CBC panel Auto (Bld)on 06-28 Erythrocyte distribution width (RBC) [Ratio] 15.6 % High 11.5-15.0 [facility] Comment on above: Order Comment: Speci men Type: BLOOD SPECIMENOrdering Facility: [facility] Address: [address] [place] [address] Performed By: #### 5 8410-2 ####[facility] LABORATORYCLIA [id number] [address] STATES [facility] Hematocrit (Bld) [Volume fraction] 30.5 % Low 39.0-51.0 [facility] Comment on above: Order Comment: Speci men Type: BLOOD SPECIMENOrdering Facility: [facility] Address: [address] [place] [address] Performed By: #### 5 8410-2 ####[facility] LABORATORYCLIA [id number] [address] [place] [facility] Hemoglobin (Bld) [Mass/Vol] 9.4 g/dL Low 13.0-17.0 [facility] Comment on above: Order Comment: Speci men Type: BLOOD SPECIMENOrdering Facility: [facility] Address: [address] [place] [address] Performed By: #### 5 8410-2 ####[facility]ORATORYCLIA [id number] [address] [place] MCH (RBC) [Entitic mass] 27.8 pg Normal 26.0-34.0 [facility] Comment on above: Order Comment: Speci men Type: BLOOD SPECIMENOrdering Facility: [facility] Address: [address] [place] [address] Performed By: #### 5 8410-2 ####[facility]ORATORYCLIA [id number] [address] MCHC (RBC) [Mass/Vol] 30.8 g/dL Normal 30.5-36.0 [facility] Comment on above: Order Comment: Speci men Type: BLOOD SPECIMENOrdering Facility: [facility] Address: [address] [place] [address] Performed By: #### 5 8410-2 ####[facility]ORATORYCLIA [id number] [address] [place] [facility] MCV (RBC) [Entitic vol] 90.2 fL Normal 80.0-100.0 [facility] Comment on above: Order Comment: Speci men Type: BLOOD SPECIMENOrdering Facility: [facility] Address: [address] [place] [address] Performed By: #### 5 8410-2 ####[facility]ORATORYCLIA [id number] [address] Nucleated RBC (Bld) [#/Vol] 10*3/uL Normal <0.01 [facility] Comment on above: Order Comment: Speci men Type: BLOOD SPECIMENOrdering Facility: [facility] Address: [address] [place] [address] Performed By: #### 5 8410-2 ####[facility]ORATORYCLIA [id number] [address] Platelet mean volume (Bld) [Entitic vol] 9.9 fL Normal 9.0-12.7 [facility] Comment on above: Order Comment: Speci men Type: BLOOD SPECIMENOrdering Facility: [facility] Address: [address] [place] [address] Performed By: #### 5 8410-2 ####[facility]ORATORYCLIA [id number] [address] [place] [facility] Platelets (Bld) [#/Vol] 333 10*3/uL Normal 150-400 [facility] Comment on above: Order Comment: Speci men Type: BLOOD SPECIMENOrdering Facility: [facility] Address: [address] [place] [address] Performed By: #### 5 8410-2 ####[facility]ORATORYCLIA [id number] [place] [address] [place] RBC (Bld) [#/Vol] 3.38 10*6/uL Low 4.20-6.00 [facility] Comment on above: Order Comment: Speci men Type: BLOOD SPECIMENOrdering Facility: [facility] Address: [address] [place] [address] Performed By: #### 5 8410-2 ####[facility]ORATORYCLIA [id number] [address] WBC (Bld) [#/Vol] 9.71 10*3/uL Normal 3.70-11.00 [facility] Comment on above: Order Comment: Speci men Type: BLOOD SPECIMENOrdering Facility: [facility] Address: [address] [place] [address] Performed By: #### 5 8410-2 ####[facility]ORATORYCLIA [id number] [address] [place] CNDSon 06-28-2021 CNDS Normal [facility] CONSULT PROGon 06-28-2021 CONSULT PROG Normal [facility] Magnesium SerPl-mCncon 06-28 Magnesium [Mass/Vol] 2.2 mg/dL Normal 1.7-2.3 [facility] Comment on above: Order Comment: Speci men Type: BLOOD SPECIMENOrdering Facility: [facility] Address: [address] [place] [address] Performed By: #### 2 4321-2, ####[facility]ORATORYCLIA [id number] [address] [place] Vancomycin random [Mass/Vol] on 06-28-2021 Vancomycin [Mass/Vol] 23.0 ug/mL High 10.0-20.0 [facility] Comment on above: Order Comment: Speci men Type: BLOOD SPECIMENOrdering Facility: [facility] Address: [address] [address] Result Comment: Refe rence ranges and high/low indicator flags are provided as general guidelines only. The treating physician must determine appropriate target levels/dosing based on the specific clinical situation. Performed By: #### 4 091-5 ####[facility]ORATORYCLIA [id number] [address] [place] ALLIED HEALTHon 06-27-2021 ALLIED HEALTH Normal [facility] Basic metabolic 2000 panelon 06-27-2021 Anion gap [Moles/Vol] 10 mmol/L Normal 9-18 [facility] Comment on above: Order Comment: Speci men Type: BLOOD SPECIMENOrdering Facility: [facility] Address: [address] [address] Performed By: #### 2 4321-2, ####[facility] LABORATORYCLIA [id number] [place] [address] [place] [facility] Calcium [Mass/Vol] 8.8 mg/dL Normal 8.5-10.2 [facility] Comment on above: Order Comment: Speci men Type: BLOOD SPECIMENOrdering Facility: [facility] Address: [address] [address] Performed By: #### 2 4321-2, ####[facility]ORATORYCLIA [id number] [place] [address] [place] Chloride [Moles/Vol] 104 mmol/L Normal 97-105 [facility] Comment on above: Order Comment: Speci men Type: BLOOD SPECIMENOrdering Facility: [facility] Address: [address] [address] Performed By: #### 2 432-, ####[facility]ORATORYCLIA [id number] [place] [address] [place] CO2 [Moles/Vol] 26 mmol/L Normal 22-30 [facility] Comment on above: Order Comment: Speci men Type: BLOOD SPECIMENOrdering Facility: [facility] Address: [address] [place] [address] Performed By: #### 2 43205-08, ####[facility]ORATORYCLIA [id number] [place] [address] [place] Creatinine [Mass/Vol] 0.57 mg/dL Low 0.73-1.22 [facility] Comment on above: Order Comment: Speci men Type: BLOOD SPECIMENOrdering Facility: [facility] Address: [address] [place] [address] Performed By: #### 2 43205-08, ####[facility]CLIA [id number] [place] [address] [place] GFR/1.73 sq M.predicted MDRD (S/P/Bld) [Vol rate/Area] mL/min/{1.73_m2} Normal [facility] Comment on above: Order Comment: Speci men Type: BLOOD SPECIMENOrdering Facility: [facility] Address: [address] [place] [address] Result Comment: >60e GFR (Estimated GFR) Units [...] actual GFR. Performed By: #### 2 432-, ####[facility]ORATORYCLIA [id number] [place] [address] [place] Glucose [Mass/Vol] 133 mg/dL High 74-99 [facility] Comment on above: Order Comment: Shira feldman Type: BLOOD SPECIMENOrdering Facility: [facility] Address: [address] [place] [address] Result Comment: The [place] [employer] (ADA) [...] Care. 2016.39(Suppl 1). Performed By: #### 2 ####[facility]ORATORYCLIA [id number] [place] [address] [place] Potassium [Moles/Vol] 4.2 mmol/L Normal 3.7-5.1 [facility] Comment on above: Order Comment: Shira feldman Type: BLOOD SPECIMENOrdering Facility: [facility] Address: [address] [place] [address] Performed By: #### 2 ####[facility]ATORYCLIA [id number] [place] [address] [place] Sodium [Moles/Vol] 140 mmol/L Normal 136-144 [facility] Comment on above: Order Comment: Shira feldman Type: BLOOD SPECIMENOrdering Facility: [facility] Address: [address] [place] [address] Performed By: #### 2 ####[facility]ORATORYCLIA [id number] [place] [address] [place] Urea nitrogen [Mass/Vol] 24 mg/dL Normal 9-24 [facility] Comment on above: Order Comment: Speci men Type: BLOOD SPECIMENOrdering Facility: [facility] Address: [address] [place] [address] Performed By: #### 2 4321-2, 55163-9 ####[facility] LABORATORYCLIA [id number] [address] OF [facility] CASE MANAGEMon 06-27-2021 CASE MANAGEM Normal [facility] CBC panel Auto (Bld)on 06-27 Erythrocyte distribution width (RBC) [Ratio] 15.8 % High 11.5-15.0 [facility] Comment on above: Order Comment: Speci men Type: BLOOD SPECIMENOrdering Facility: [facility] Address: [address] [place] [address] Performed By: #### 5 8410-2 ####[facility] LABORATORYCLIA [id number] [address] Hematocrit (Bld) [Volume fraction] 31.4 % Low 39.0-51.0 [facility] Comment on above: Order Comment: Speci men Type: BLOOD SPECIMENOrdering Facility: [facility] Address: [address] [place] [address] Performed By: #### 5 8410-2 ####[facility] LABORATORYCLIA [id number] [address] [place] Hemoglobin (Bld) [Mass/Vol] 9.3 g/dL Low 13.0-17.0 [facility] Comment on above: Order Comment: Speci men Type: BLOOD SPECIMENOrdering Facility: [facility] Address: [address] [place] [address] Performed By: #### 5 8410-2 ####[facility]ORATORYCLIA [id number] [address] [place] MCH (RBC) [Entitic mass] 27.0 pg Normal 26.0-34.0 [facility] Comment on above: Order Comment: Speci men Type: BLOOD SPECIMENOrdering Facility: [facility] Address: [address] [place] [address] Performed By: #### 5 8410-2 ####[facility] LABORATORYCLIA [id number] [address] MCHC (RBC) [Mass/Vol] 29.6 g/dL Low 30.5-36.0 [facility] Comment on above: Order Comment: Speci men Type: BLOOD SPECIMENOrdering Facility: [facility] Address: [address] [place] [address] Performed By: #### 5 8410-2 ####[facility] LABORATORYCLIA [id number] [address] MCV (RBC) [Entitic vol] 91.3 fL Normal 80.0-100.0 [facility] Comment on above: Order Comment: Speci men Type: BLOOD SPECIMENOrdering Facility: [facility] Address: [address] [place] [address] Performed By: #### 5 8410-2 ####[facility]ORATORYCLIA [id number] [address] Nucleated RBC (Bld) [#/Vol] 10*3/uL Normal <0.01 [facility] Comment on above: Order Comment: Speci men Type: BLOOD SPECIMENOrdering Facility: [facility] Address: [address] [place] [address] Performed By: #### 5 8410-2 ####[facility]ORATORYCLIA [id number] [address] Platelet mean volume (Bld) [Entitic vol] 10.3 fL Normal 9.0-12.7 [facility] Comment on above: Order Comment: Speci men Type: BLOOD SPECIMENOrdering Facility: [facility] Address: [address] [place] [address] Performed By: #### 5 8410-2 ####[facility]ORATORYCLIA [id number] [address] [facility] Platelets (Bld) [#/Vol] 359 10*3/uL Normal 150-400 [facility] Comment on above: Order Comment: Speci men Type: BLOOD SPECIMENOrdering Facility: [facility] Address: [address] [place] [address] Performed By: #### 5 8410-2 ####[facility] LABORATORYCLIA [id number] [place] [address] [place] RBC (Bld) [#/Vol] 3.44 10*6/uL Low 4.20-6.00 [facility] Comment on above: Order Comment: Speci men Type: BLOOD SPECIMENOrdering Facility: [facility] Address: [address] [place] [address] Performed By: #### 5 8410-2 ####[facility]CL[facility] [id number] [address] WBC (Bld) [#/Vol] 10.73 10*3/uL Normal 3.70-11.00 [facility] Comment on above: Order Comment: Speci men Type: BLOOD SPECIMENOrdering Facility: [facility] Address: [address] [place] [address] Performed By: #### 5 8410-2 ####[facility]ORATORYCLIA [id number] [address] [place] Magnesium SerPl-mCncon 06-27 Magnesium [Mass/Vol] 2.2 mg/dL Normal 1.7-2.3 [facility] Comment on above: Order Comment: Speci men Type: BLOOD SPECIMENOrdering Facility: [facility] Address: [address] [place] [address] Performed By: #### 2 4321-2, 34966-5 ####[facility]ORATORYCLIA [id number] [address] [place] NT-proBNP SerPl-mCncon 06-27 Natriuretic peptide.B prohormone N-Terminal [Mass/Vol] 184 pg/mL High <125 [facility] Comment on above: Order Comment: Speci men Type: BLOOD SPECIMENOrdering Facility: [facility] Address: [address] [place] [address] Performed By: #### 3 3762-6 ####[facility]ORATORYCLIA [id number] [place] [address] [place] NUTRITIONon 06-27-2021 NUTRITION [...] Comment: Speci men Type: BLOOD SPECIMENOrdering Facility: [facility] Address: [address] [place] [address] Performed By: #### 1 9123-9, 19191-4 ####[facility]ORATORYCLIA [id number] [place] [address] [place] Calcium [Mass/Vol] 8.7 mg/dL Normal 8.5-10.2 [facility] Comment on above: Order Comment: Speci men Type: BLOOD SPECIMENOrdering Facility: [facility] Address: [address] [place] [address] Performed By: #### 1 9123-9, 46214-6 ####[facility]ORATORYCLIA [id number] [place] [address] [place] Chloride [Moles/Vol] 105 mmol/L Normal 97-105 [facility] Comment on above: Order Comment: Speci men Type: BLOOD SPECIMENOrdering Facility: [facility] Address: [address] [place] [address] Performed By: #### 1 9123-9, 70244-5 ####[facility]ORATORYCLIA [id number] [place] [address] [place] CO2 [Moles/Vol] 26 mmol/L Normal 22-30 [facility] Comment on above: Order Comment: Speci men Type: BLOOD SPECIMENOrdering Facility: [facility] Address: [address] [place] [address] Performed By: #### 1 9123-9, 23768-5 ####[facility]ORATORYCLIA [id number] [place] [address] [place] Creatinine [Mass/Vol] 0.56 mg/dL Low 0.73-1.22 [facility] Comment on above: Order Comment: Speci men Type: BLOOD SPECIMENOrdering Facility: [facility] Address: [address] [place] [address] Performed By: #### 1 9123-9, 10726-3 ####[facility]ORATORYCLIA [id number] [address] [place] GFR/1.73 sq M.predicted MDRD (S/P/Bld) [Vol rate/Area] mL/min/{1.73_m2} Normal [facility] Comment on above: Order Comment: Speci men Type: BLOOD SPECIMENOrdering Facility: [facility] Address: [address] [place] [address] Result Comment: >60e GFR (Estimated GFR) Units [...] actual GFR. Performed By: #### 1 9123-9, 74750-6 ####[facility]ORATORYCLIA [id number] [place] [address] [place] Glucose [Mass/Vol] 134 mg/dL High 74-99 [facility] Comment on above: Order Comment: Speci men Type: BLOOD SPECIMENOrdering Facility: [facility] Address: [address] [place], [place] [id number] Result Comment: The [place] [employer] (ADA) [...] 2016.39(Suppl 1). Performed By: #### 1 9123-9, 79961-3 ####[facility]ORATORYCLIA [id number] [place] [address] [place] Potassium [Moles/Vol] 3.8 mmol/L Normal 3.7-5.1 [facility] Comment on above: Order Comment: Johni men Type: BLOOD SPECIMENOrdering Facility: [facility] Address: [address] [place] [address] Performed By: #### 1 9123-9, 24442-8 ####[facility] LABORATORYCLIA [id number] [place] [address] [place] Sodium [Moles/Vol] 140 mmol/L Normal 136-144 [facility] Comment on above: Order Comment: Speci men Type: BLOOD SPECIMENOrdering Facility: [facility] Address: [address] Performed By: #### 1 9123-9, 14429-4 ####[facility]ORATORYCLIA [id number] [place] [address] [place] Urea nitrogen [Mass/Vol] 24 mg/dL Normal 9-24 [facility] Comment on above: Order Comment: Speci men Type: BLOOD SPECIMENOrdering Facility: [facility] Address: [address] [place] [address] Performed By: #### 1 9123-9, 52426-0 ####[facility]ORATORYCLIA [id number] [address] CBC panel Auto (Bld)on 06-26 Erythrocyte distribution width (RBC) [Ratio] 15.9 % High 11.5-15.0 [facility] Comment on above: Order Comment: Speci men Type: BLOOD SPECIMENOrdering Facility: [facility] Address: [address] [place] [address] Performed By: #### 5 8410-2 ####[facility]ORATORYCLIA [id number] [address] Hematocrit (Bld) [Volume fraction] 29.8 % Low 39.0-51.0 [facility] Comment on above: Order Comment: Speci men Type: BLOOD SPECIMENOrdering Facility: [facility] Address: [address] [place] [address] Performed By: #### 5 8410-2 ####[facility]ORATORYCLIA [id number] [address] Hemoglobin (Bld) [Mass/Vol] 9.1 g/dL Low 13.0-17.0 [facility] Comment on above: Order Comment: Speci men Type: BLOOD SPECIMENOrdering Facility: [facility] Address: [address] [place] [address] Performed By: #### 5 8410-2 ####[facility] LABORATORYCLIA [id number] [address] [place] MCH (RBC) [Entitic mass] 27.8 pg Normal 26.0-34.0 [facility] Comment on above: Order Comment: Speci men Type: BLOOD SPECIMENOrdering Facility: [facility] Address: [address] [place] [address] Performed By: #### 5 8410-2 ####[facility]ORATORYCLIA [id number] [address] MCHC (RBC) [Mass/Vol] 30.5 g/dL Normal 30.5-36.0 [facility] Comment on above: Order Comment: Speci men Type: BLOOD SPECIMENOrdering Facility: [facility] Address: [address] [place] [address] Performed By: #### 5 8410-2 ####[facility]ORATORYCLIA [id number] [address] [place] MCV (RBC) [Entitic vol] 91.1 fL Normal 80.0-100.0 [facility] Comment on above: Order Comment: Speci men Type: BLOOD SPECIMENOrdering Facility: [facility] Address: [address] [place] [address] Performed By: #### 5 8410-2 ####[facility]ATORYCLIA [id number] [address] Nucleated RBC (Bld) [#/Vol] 10*3/uL Normal <0.01 [facility] Comment on above: Order Comment: Speci men Type: BLOOD SPECIMENOrdering Facility: [facility] Address: [address] [place] [address] Performed By: #### 5 8410-2 ####[facility]ORATORYCLIA [id number] [address] [place] Platelet mean volume (Bld) [Entitic vol] 10.3 fL Normal 9.0-12.7 [facility] Comment on above: Order Comment: Speci men Type: BLOOD SPECIMENOrdering Facility: [facility] Address: [address] [place] [address] Performed By: #### 5 8410-2 ####[facility]ORATORYCLIA [id number] [address] [facility] Platelets (Bld) [#/Vol] 336 10*3/uL Normal 150-400 [facility] Comment on above: Order Comment: Speci men Type: BLOOD SPECIMENOrdering Facility: [facility] Address: [address] [place] [address] Performed By: #### 5 8410-2 ####[facility]ORATORYCLIA [id number] [address] RBC (Bld) [#/Vol] 3.27 10*6/uL Low 4.20-6.00 [facility] Comment on above: Order Comment: Speci men Type: BLOOD SPECIMENOrdering Facility: [facility] Address: [address] [place] [address] Performed By: #### 5 8410-2 ####[facility]ORATORYCLIA [id number] [address] WBC (Bld) [#/Vol] 9.14 10*3/uL Normal 3.70-11.00 [facility] Comment on above: Order Comment: Speci men Type: BLOOD SPECIMENOrdering Facility: [facility] Address: [address] [place] [address] Performed By: #### 5 8410-2 ####[facility]ORATORYCLIA [id number] [address] CONSULT PROGon 06-26-2021 CONSULT PROG Normal [facility] Magnesium SerPl-mCncon 06-26 Magnesium [Mass/Vol] 2.2 mg/dL Normal 1.7-2.3 [facility] Comment on above: Order Comment: Speci men Type: BLOOD SPECIMENOrdering Facility: [facility] Address: [address] [place] [address] Performed By: #### 1 9123-9, 70556-0 ####[facility]ORATORYCLIA [id number] [address] NURSING PROGon 06-26-2021 NURSING PROG Normal [facility] NURSING PROG Normal [facility] Basic metabolic 2000 panelon 06-25-2021 Anion gap [Moles/Vol] 8 mmol/L Low 9-18 [facility] Comment on above: Order Comment: Speci men Type: BLOOD SPECIMENOrdering Facility: [facility] Address: [address] [place] [address] Performed By: #### 2 4320-2, ####[facility]ORATORYCLIA [id number] [place] [address] [place] Calcium [Mass/Vol] 8.8 mg/dL Normal 8.5-10.2 [facility] Comment on above: Order Comment: Speci men Type: BLOOD SPECIMENOrdering Facility: [facility] Address: [address] [place] [address] Performed By: #### 2 4320-2, ####[facility]ORATORYCLIA [id number] [place] [address] [place] Chloride [Moles/Vol] 105 mmol/L Normal 97-105 [facility] Comment on above: Order Comment: Speci men Type: BLOOD SPECIMENOrdering Facility: [facility] Address: [address] [place] [address] Performed By: #### 2 4320-06, ####[facility]ORATORYCLIA [id number] [place] [address] [place] CO2 [Moles/Vol] 27 mmol/L Normal 22-30 [facility] Comment on above: Order Comment: Speci men Type: BLOOD SPECIMENOrdering Facility: [facility] Address: [address] [place] [address] Performed By: #### 2 2, ####[facility]ORATORYCLIA [id number] [place] [address] [place] Creatinine [Mass/Vol] 0.59 mg/dL Low 0.73-1.22 [facility] Comment on above: Order Comment: Speci men Type: BLOOD SPECIMENOrdering Facility: [facility] Address: [address] [place] [address] Performed By: #### 2 432-2, ####[facility]ORATORYCLIA [id number] [place] [address] [place] GFR/1.73 sq M.predicted MDRD (S/P/Bld) [Vol rate/Area] mL/min/{1.73_m2} Normal [facility] Comment on above: Order Comment: Johncara feldman Type: BLOOD SPECIMENOrdering Facility: [facility] Address: [address] [place] [address] Result Comment: >60e GFR (Estimated GFR) Units [...] actual GFR. Performed By: #### 2 4321-2, 13740-4 ####[facility]ORATORYCLIA [id number] [place] [address] [place] Glucose [Mass/Vol] 132 mg/dL High 74-99 [facility] Comment on above: Order Comment: Shira feldman Type: BLOOD SPECIMENOrdering Facility: [facility] Address: [address] [place] [address] Result Comment: The [place] [employer] (ADA) [...] 2016.39(Suppl 1). Performed By: #### 2 4321-2, 66509-7 ####[facility]ORATORYCLIA [id number] [place] [address] [place] Potassium [Moles/Vol] 3.9 mmol/L Normal 3.7-5.1 [facility] Comment on above: Order Comment: Speci men Type: BLOOD SPECIMENOrdering Facility: [facility] Address: [address] [place] [address] Performed By: #### 2 4321-2, 08315-8 ####[facility]ORATORYCLIA [id number] [address] [place] Sodium [Moles/Vol] 140 mmol/L Normal 136-144 [facility] Comment on above: Order Comment: Speci men Type: BLOOD SPECIMENOrdering Facility: [facility] Address: [address] [place] [address] Performed By: #### 2 4321-2, ####[facility]ORATORYCLIA [id number] [address] STATES [facility] Urea nitrogen [Mass/Vol] 24 mg/dL Normal 9-24 [facility] Comment on above: Order Comment: Speci men Type: BLOOD SPECIMENOrdering Facility: [facility] Address: [address] [place] [address] Performed By: #### 2 4321-2, ####[facility]ORATORYCLIA [id number] [address] OF [facility] CASE MANAGEMon 06-25-2021 CASE MANAGEM Normal [facility] CBC panel Auto (Bld)on 06-25 Erythrocyte distribution width (RBC) [Ratio] 15.9 % High 11.5-15.0 [facility] Comment on above: Order Comment: Speci men Type: BLOOD SPECIMENOrdering Facility: [facility] Address: [address] [place] [address] Performed By: #### 5 8410-2 ####[facility]ORATORYCLIA [id number] [address] Hematocrit (Bld) [Volume fraction] 31.0 % Low 39.0-51.0 [facility] Comment on above: Order Comment: Speci men Type: BLOOD SPECIMENOrdering Facility: [facility] Address: [address] [place] [address] Performed By: #### 5 8410-2 ####[facility]ORATORYCLIA [id number] [address] STATES OF [facility] Hemoglobin (Bld) [Mass/Vol] 9.4 g/dL Low 13.0-17.0 [facility] Comment on above: Order Comment: Speci men Type: BLOOD SPECIMENOrdering Facility: [facility] Address: [address] [place] [address] Performed By: #### 5 8410-2 ####[facility]ORATORYCLIA [id number] [address] STATES OF [facility] MCH (RBC) [Entitic mass] 28.1 pg Normal 26.0-34.0 [facility] Comment on above: Order Comment: Speci men Type: BLOOD SPECIMENOrdering Facility: [facility] Address: [address] [place] [address] Performed By: #### 5 8410-2 ####[facility]ORATORYCLIA [id number] [address] [place] MCHC (RBC) [Mass/Vol] 30.3 g/dL Low 30.5-36.0 [facility] Comment on above: Order Comment: Speci men Type: BLOOD SPECIMENOrdering Facility: [facility] Address: [address] [place] [address] Performed By: #### 5 8410-2 ####[facility]ORATORYCLIA [id number] [address] MCV (RBC) [Entitic vol] 92.5 fL Normal 80.0-100.0 [facility] Comment on above: Order Comment: Speci men Type: BLOOD SPECIMENOrdering Facility: [facility] Address: [address] [place] [address] Performed By: #### 5 8410-2 ####[facility]ORATORYCLIA [id number] [address] [place] Nucleated RBC (Bld) [#/Vol] 10*3/uL Normal <0.01 [facility] Comment on above: Order Comment: Speci men Type: BLOOD SPECIMENOrdering Facility: [facility] Address: [address] [place] [address] Performed By: #### 5 8410-2 ####[facility]ORATORYCLIA [id number] [address] [place] Platelet mean volume (Bld) [Entitic vol] 10.5 fL Normal 9.0-12.7 [facility] Comment on above: Order Comment: Speci men Type: BLOOD SPECIMENOrdering Facility: [facility] Address: [address] [place] [address] Performed By: #### 5 8410-2 ####[facility]ORATORYCLIA [id number] [address] [place] Platelets (Bld) [#/Vol] 311 10*3/uL Normal 150-400 [facility] Comment on above: Order Comment: Speci men Type: BLOOD SPECIMENOrdering Facility: [facility] Address: [address] [place] [address] Performed By: #### 5 8410-2 ####[facility]ORATORYCLIA [id number] [address] [place] RBC (Bld) [#/Vol] 3.35 10*6/uL Low 4.20-6.00 [facility] Comment on above: Order Comment: Speci men Type: BLOOD SPECIMENOrdering Facility: [facility] Address: [address] [place] [address] Performed By: #### 5 8410-2 ####[facility]ORATORYCLIA [id number] [address] [place] WBC (Bld) [#/Vol] 9.57 10*3/uL Normal 3.70-11.00 [facility] Comment on above: Order Comment: Speci men Type: BLOOD SPECIMENOrdering Facility: [facility] Address: [address] [place] [address] Performed By: #### 5 8410-2 ####[facility]ORATORYCLIA [id number] [place] [address] [place] Magnesium SerPl-mCncon 06-25 Magnesium [Mass/Vol] 2.4 mg/dL High 1.7-2.3 [facility] Comment on above: Order Comment: Speci men Type: BLOOD SPECIMENOrdering Facility: [facility] Address: [address] [place] [address] Performed By: #### 2 4321-2, 97672-5 ####[facility]ORATORYCLIA [id number] [place] [address] [place] Basic metabolic 2000 panelon 06-24-2021 Anion gap [Moles/Vol] 9 mmol/L Normal -18 [facility] Comment on above: Order Comment: Speci men Type: BLOOD SPECIMENOrdering Facility: [facility] Address: [address] [place] [address] Performed By: #### 1 9123-9, 15670-7 ####[facility]ORATORYCLIA [id number] [place] [address] [place] Calcium [Mass/Vol] 8.6 mg/dL Normal 8.5-10.2 [facility] Comment on above: Order Comment: Speci men Type: BLOOD SPECIMENOrdering Facility: [facility] Address: [address] [place] [address] Performed By: #### 1 9123-9, 36239-8 ####[facility]ORATORYCLIA [id number] [address] [place] Chloride [Moles/Vol] 103 mmol/L Normal 97-105 [facility] Comment on above: Order Comment: Speci men Type: BLOOD SPECIMENOrdering Facility: [facility] Address: [address] [place] [address] Performed By: #### 1 9123-9, 85388-2 ####[facility] LABORATORYCLIA [id number] [address] [place] CO2 [Moles/Vol] 26 mmol/L Normal 22-30 [facility] Comment on above: Order Comment: Speci men Type: BLOOD SPECIMENOrdering Facility: [facility] Address: [address] [place] [address] Performed By: #### 1 9123-9, 49258-6 ####[facility] LABORATORYCLIA [id number] [place] [address] [place] Creatinine [Mass/Vol] 0.60 mg/dL Low 0.73-1.22 [facility] Comment on above: Order Comment: Speci men Type: BLOOD SPECIMENOrdering Facility: [facility] Address: [address] [place] [address] Performed By: #### 1 91239, 08416-7 ####[facility] LABORATORYCLIA [id number] [place] [address] [place] GFR/1.73 sq M.predicted MDRD (S/P/Bld) [Vol rate/Area] mL/min/{1.73_m2} Normal [facility] Comment on above: Order Comment: Speci men Type: BLOOD SPECIMENOrdering Facility: [facility] Address: [address] [place] [address] Result Comment: >60e GFR (Estimated GFR) Units [...] reflect actual GFR. Performed By: #### 1 91239, 82625-5 ####[facility] LABORATORYCLIA [id number] [place] [address] [place] Glucose [Mass/Vol] 126 mg/dL High 74-99 [facility] Comment on above: Order Comment: Speci men Type: BLOOD SPECIMENOrdering Facility: [facility] Address: [address] [place] [address] Result Comment: The [place] [employer] (ADA) [...] Care. 2016.39(Suppl 1). Performed By: #### 1 9123-9-2 ####[facility] LABORATORYCLIA [id number] [place] [address] [place] Potassium [Moles/Vol] 3.9 mmol/L Normal 3.7-5.1 [facility] Comment on above: Order Comment: Speci men Type: BLOOD SPECIMENOrdering Facility: [facility] Address: [address] [place] [address] Performed By: #### 1 91239-2 ####[facility] LABORATORYCLIA [id number] [place] [address] [place] Sodium [Moles/Vol] 138 mmol/L Normal 136-144 [facility] Comment on above: Order Comment: Johni men Type: BLOOD SPECIMENOrdering Facility: [facility] Address: [address] [place] [address] Performed By: #### 1 91239-2 ####[facility] LABORATORYCLIA [id number] [place] [address] [place] Urea nitrogen [Mass/Vol] 24 mg/dL Normal 9-24 [facility] Comment on above: Order Comment: Speci men Type: BLOOD SPECIMENOrdering Facility: [facility] Address: [address] [place] [address] Performed By: #### 1 9123-9, 01217-3 ####[facility] LABORATORYCLIA [id number] [address] [place] CASE MANAGEMon 06-24-2021 CASE MANAGEM Normal [facility] CASE MANAGEM Normal [facility] CASE MANAGEM Normal [facility] CBC panel Auto (Bld)on 06-24 Erythrocyte distribution width (RBC) [Ratio] 16.1 % High 11.5-15.0 [facility] Comment on above: Order Comment: Speci men Type: BLOOD SPECIMENOrdering Facility: [facility] Address: [address] [place] [address] Performed By: #### 5 8410-2 ####[facility] LABORATORYCLIA [id number] [address] [place] Hematocrit (Bld) [Volume fraction] 31.7 % Low 39.0-51.0 [facility] Comment on above: Order Comment: Speci men Type: BLOOD SPECIMENOrdering Facility: [facility] Address: [address] [place] [address] Performed By: #### 5 8410-2 ####[facility] LABORATORYCLIA [id number] [address] [place] Hemoglobin (Bld) [Mass/Vol] 9.7 g/dL Low 13.0-17.0 [facility] Comment on above: Order Comment: Speci men Type: BLOOD SPECIMENOrdering Facility: [facility] Address: [address] [place] [address] Performed By: #### 5 8410-2 ####[facility] LABORATORYCLIA [id number] [place] [address] [place] MCH (RBC) [Entitic mass] 28.0 pg Normal 26.0-34.0 [facility] Comment on above: Order Comment: Speci men Type: BLOOD SPECIMENOrdering Facility: [facility] Address: [address] [place] [address] Performed By: #### 5 8410-2 ####[facility] LABORATORYCLIA [id number] [address] STATES [facility] MCHC (RBC) [Mass/Vol] 30.6 g/dL Normal 30.5-36.0 [facility] Comment on above: Order Comment: Speci men Type: BLOOD SPECIMENOrdering Facility: [facility] Address: [address] [place] [address] Performed By: #### 5 8410-2 ####[facility] LABORATORYCLIA [id number] [address] [place] MCV (RBC) [Entitic vol] 91.4 fL Normal 80.0-100.0 [facility] Comment on above: Order Comment: Speci men Type: BLOOD SPECIMENOrdering Facility: [facility] Address: [address] [place] [address] Performed By: #### 5 8410-2 ####[facility] LABORATORYCLIA [id number] [address] STATES OF [facility] Nucleated RBC (Bld) [#/Vol] 10*3/uL Normal <0.01 [facility] Comment on above: Order Comment: Speci men Type: BLOOD SPECIMENOrdering Facility: [facility] Address: [address] [place] [address] Performed By: #### 5 8410-2 ####[facility] LABORATORYCLIA [id number] [address] Platelet mean volume (Bld) [Entitic vol] 11.0 fL Normal 9.0-12.7 [facility] Comment on above: Order Comment: Speci men Type: BLOOD SPECIMENOrdering Facility: [facility] Address: [address] [place] [address] Performed By: #### 5 8410-2 ####[facility]ORATORYCLIA [id number] [address] Platelets (Bld) [#/Vol] 358 10*3/uL Normal 150-400 [facility] Comment on above: Order Comment: Speci men Type: BLOOD SPECIMENOrdering Facility: [facility] Address: [address] [place] [address] Performed By: #### 5 8410-2 ####[facility] LABORATORYCLIA [id number] [address] OF [facility] RBC (Bld) [#/Vol] 3.47 10*6/uL Low 4.20-6.00 [facility] Comment on above: Order Comment: Speci men Type: BLOOD SPECIMENOrdering Facility: [facility] Address: [address] [place] [address] Performed By: #### 5 8410-2 ####[facility] LABORATORYCLIA [id number] [address] WBC (Bld) [#/Vol] 10.07 10*3/uL Normal 3.70-11.00 [facility] Comment on above: Order Comment: Speci men Type: BLOOD SPECIMENOrdering Facility: [facility] Address: [address] [place] [address] Performed By: #### 5 8410-2 ####[facility]ORATORYCLIA [id number] [address] Magnesium SerPl-mCncon 06-24 Magnesium [Mass/Vol] 2.3 mg/dL Normal 1.7-2.3 [facility] Comment on above: Order Comment: Speci men Type: BLOOD SPECIMENOrdering Facility: [facility] Address: [address] [place] [address] Performed By: #### 1 9123-9, 57170-8 ####[facility]ORATORYCLIA [id number] [address] ALLIED HEALTHon 06-23-2021 ALLIED HEALTH Normal [facility] Basic metabolic 2000 panelon 06-23-2021 Anion gap [Moles/Vol] 9 mmol/L Normal 9-18 [facility] Comment on above: Order Comment: Speci men Type: BLOOD SPECIMENOrdering Facility: [facility] Address: [address] [place] [address] Performed By: #### 1 9123-9, 43692-2 ####[facility]ORATORYCLIA [id number] [place] [address] [place] Calcium [Mass/Vol] 8.4 mg/dL Low 8.5-10.2 [facility] Comment on above: Order Comment: Speci men Type: BLOOD SPECIMENOrdering Facility: [facility] Address: [address] [place] [address] Performed By: #### 1 9123-9, 55987-2 ####[facility]ORATORYCLIA [id number] [place] [address] [place] [facility] Chloride [Moles/Vol] 104 mmol/L Normal 97-105 [facility] Comment on above: Order Comment: Speci men Type: BLOOD SPECIMENOrdering Facility: [facility] Address: [address] [place] [address] Performed By: #### 1 9123-9, 49570-3 ####[facility]ORATORYCLIA [id number] [place] [address] [place] CO2 [Moles/Vol] 26 mmol/L Normal 22-30 [facility] Comment on above: Order Comment: Speci men Type: BLOOD SPECIMENOrdering Facility: [facility] Address: [address] [place] [address] Performed By: #### 1 9123-9, 86648-3 ####[facility]ORATORYCLIA [id number] [place] [address] [place] Creatinine [Mass/Vol] 0.62 mg/dL Low 0.73-1.22 [facility] Comment on above: Order Comment: Speci men Type: BLOOD SPECIMENOrdering Facility: [facility] Address: [address] [id number] Performed By: #### 1 9123-9, 00324-0 ####[facility] HOSPITALIA [id number] [place] [address] [place] GFR/1.73 sq M.predicted MDRD (S/P/Bld) [Vol rate/Area] mL/min/{1.73_m2} Normal [facility] Comment on above: Order Comment: Johncara feldman Type: BLOOD SPECIMENOrdering Facility: [facility] Address: [address] [place], [place] [address] Result Comment: >60e GFR (Estimated GFR) Units [...] actual GFR. Performed By: #### 1 9123-9, 02372-0 ####[facility] HOSPITALIA [id number] [place] [address] [place] Glucose [Mass/Vol] 111 mg/dL High 74-99 [facility] Comment on above: Order Comment: Shira francia Type: BLOOD SPECIMENOrdering Facility: [facility] Address: [address] [id number] Result Comment: The [place] [employer] (ADA) [...] 2016.39(Suppl 1). Performed By: #### 1 9123-9, 47729-0 ####[facility] LABORATORYCLIA [id number] [address] STATES OF [facility] Potassium [Moles/Vol] 4.1 mmol/L Normal 3.7-5.1 [facility] Comment on above: Order Comment: Johni men Type: BLOOD SPECIMENOrdering Facility: [facility] Address: [address] [place] [address] Performed By: #### 1 9123-9, 18526-7 ####[facility] LABORATORYCLIA [id number] [address] STATES [facility] Sodium [Moles/Vol] 139 mmol/L Normal 136-144 [facility] Comment on above: Order Comment: Johni francia Type: BLOOD SPECIMENOrdering Facility: [facility] Address: [address] [place] [address] Performed By: #### 1 9123-9, 78286-6 ####[facility]ORATORYCLIA [id number] [address] STATES [facility] Urea nitrogen [Mass/Vol] 26 mg/dL High 9-24 [facility] Comment on above: Order Comment: Shira feldman Type: BLOOD SPECIMENOrdering Facility: [facility] Address: [address] [place] [address] Performed By: #### 1 9123-9, 74619-6 ####[facility]ORATORYCLIA [id number] [address] [place] CASE MANAGEMon 06-23-2021 CASE MANAGEM Normal [facility] CBC panel Auto (Bld)on 06-23 Erythrocyte distribution width (RBC) [Ratio] 16.0 % High 11.5-15.0 [facility] Comment on above: Order Comment: Shira men Type: BLOOD SPECIMENOrdering Facility: [facility] Address: [address] [place] [address] Performed By: #### 5 8410-2 ####[facility] LABORATORYCLIA [id number] [address] Hematocrit (Bld) [Volume fraction] 31.1 % Low 39.0-51.0 [facility] Comment on above: Order Comment: Speci men Type: BLOOD SPECIMENOrdering Facility: [facility] Address: [address] [place] [address] Performed By: #### 5 8410-2 ####[facility] LABORATORYCLIA [id number] [address] OF [facility] Hemoglobin (Bld) [Mass/Vol] 9.5 g/dL Low 13.0-17.0 [facility] Comment on above: Order Comment: Speci men Type: BLOOD SPECIMENOrdering Facility: [facility] Address: [address] [place] [address] Performed By: #### 5 8410-2 ####[facility] LABORATORYCLIA [id number] [address] STATES OF [facility] MCH (RBC) [Entitic mass] 28.1 pg Normal 26.0-34.0 [facility] Comment on above: Order Comment: Speci men Type: BLOOD SPECIMENOrdering Facility: [facility] Address: [address] [place] [address] Performed By: #### 5 8410-2 ####[facility]ORATORYCLIA [id number] [address] [place] MCHC (RBC) [Mass/Vol] 30.5 g/dL Normal 30.5-36.0 [facility] Comment on above: Order Comment: Speci men Type: BLOOD SPECIMENOrdering Facility: [facility] Address: [address] [place] [address] Performed By: #### 5 8410-2 ####[facility]ORATORYCLIA [id number] [address] MCV (RBC) [Entitic vol] 92.0 fL Normal 80.0-100.0 [facility] Comment on above: Order Comment: Speci men Type: BLOOD SPECIMENOrdering Facility: [facility] Address: [address] [address] Performed By: #### 5 8410-2 ####[facility] LABORATORYCLIA [id number] [place] [address] [place] Nucleated RBC (Bld) [#/Vol] 10*3/uL Normal <0.01 [facility] Comment on above: Order Comment: Speci men Type: BLOOD SPECIMENOrdering Facility: [facility] Address: [address] [place] [address] Performed By: #### 5 8410-2 ####[facility] LABORATORYCLIA [id number] [place] [address] [place] Platelet mean volume (Bld) [Entitic vol] 11.0 fL Normal 9.0-12.7 [facility] Comment on above: Order Comment: Speci men Type: BLOOD SPECIMENOrdering Facility: [facility] Address: [address] [place] [address] Performed By: #### 5 8410-2 ####[facility] LABORATORYCLIA [id number] [place] [address] [place] Platelets (Bld) [#/Vol] 361 10*3/uL Normal 150-400 [facility] Comment on above: Order Comment: Speci men Type: BLOOD SPECIMENOrdering Facility: [facility] Address: [address] Performed By: #### 5 8410-2 ####[facility] LABORATORYCLIA [id number] [place] [address] [place] RBC (Bld) [#/Vol] 3.38 10*6/uL Low 4.20-6.00 [facility] Comment on above: Order Comment: Speci men Type: BLOOD SPECIMENOrdering Facility: [facility] Address: [address] [place] [address] Performed By: #### 5 8410-2 ####[facility] LABORATORYCLIA [id number] [address] WBC (Bld) [#/Vol] 9.02 10*3/uL Normal 3.70-11.00 [facility] Comment on above: Order Comment: Speci men Type: BLOOD SPECIMENOrdering Facility: [facility] Address: [address] [place] [address] Performed By: #### 5 8410-2 ####[facility] LABORATORYCLIA [id number] [address] CONSULT PROGon 06-23-2021 CONSULT PROG Normal [facility] CONSULT PROG Normal [facility] Magnesium SerPl-mCncon 06-23 Magnesium [Mass/Vol] 2.4 mg/dL High 1.7-2.3 [facility] Comment on above: Order Comment: Speci men Type: BLOOD SPECIMENOrdering Facility: [facility] Address: [address] [place] [address] Performed By: #### 1 9123-9, 40964-2 ####[facility] MUNSTERCLIA [id number] [address] THERAPY NTon 06-23-2021 THERAPY NT Normal [facility] Vancomycin random [Mass/Vol] on 06-23-2021 Vancomycin [Mass/Vol] 22.8 ug/mL High 10.0-20.0 [facility] Comment on above: Order Comment: Speci men Type: BLOOD SPECIMENOrdering Facility: [facility] Address: [address] [place] [address] Result Comment: Refe rence ranges and high/low indicator flags are provided as general guidelines only. The treating physician must determine appropriate target levels/dosing based on the specific clinical situation. Performed By: #### 4 091-5 ####[facility] LABORATORYCLIA [id number] [address] [place] XR MOD BARIUM SWALLOW W SPEE Lore 06-23-2021 XR MOD BARIUM SWALLOW W SPEECH Normal [facility] Basic metabolic 2000 panelon 06-22-2021 Anion gap [Moles/Vol] 6 mmol/L Low 9-18 [facility] Comment on above: Order Comment: Speci men Type: BLOOD SPECIMENOrdering Facility: [facility] Address: [address] [place] [address] Performed By: #### 2 4321-2, ####[facility] LABORATORYCLIA [id number] [place] [address] [place] Calcium [Mass/Vol] 8.5 mg/dL Normal 8.5-10.2 [facility] Comment on above: Order Comment: Speci men Type: BLOOD SPECIMENOrdering Facility: [facility] Address: [address] [place] [address] Performed By: #### 2 4321-2, ####[facility]ORATORYCLIA [id number] [place] [address] [place] Chloride [Moles/Vol] 105 mmol/L Normal 97-105 [facility] Comment on above: Order Comment: Speci men Type: BLOOD SPECIMENOrdering Facility: [facility] Address: [address] [place] [address] Performed By: #### 2 4320-2, ####[facility] LABORATORYCLIA [id number] [place] [address] [place] CO2 [Moles/Vol] 26 mmol/L Normal 22-30 [facility] Comment on above: Order Comment: Speci men Type: BLOOD SPECIMENOrdering Facility: [facility] Address: [address] [place] [address] Performed By: #### 2 4320-2, ####[facility] LABORATORYCLIA [id number] [place] [address] [place] Creatinine [Mass/Vol] 0.56 mg/dL Low 0.73-1.22 [facility] Comment on above: Order Comment: Speci men Type: BLOOD SPECIMENOrdering Facility: [facility] Address: [address] [id number] Performed By: #### 2 4321-2, 24752-7 ####[facility] HOSPITALIA [id number] [place] [address] [place] GFR/1.73 sq M.predicted MDRD (S/P/Bld) [Vol rate/Area] mL/min/{1.73_m2} Normal [facility] Comment on above: Order Comment: Shira feldman Type: BLOOD SPECIMENOrdering Facility: [facility] Address: [address] [place], [place] [id number] Result Comment: >60e GFR (Estimated GFR) Units [...] actual GFR. Performed By: #### 2 4321-2, 45267-9 ####[facility] HOSPITALIA [id number] [place] [address] [place] Glucose [Mass/Vol] 120 mg/dL High 74-99 [facility] Comment on above: Order Comment: Johncara feldman Type: BLOOD SPECIMENOrdering Facility: [facility] Address: [address] [phone] Result Comment: The [place] [employer] (ADA) [...] 2016.39(Suppl 1). Performed By: #### 2 1-2, ####[facility] LABORATORYCLIA [id number] [address] [place] Potassium [Moles/Vol] 4.0 mmol/L Normal 3.7-5.1 [facility] Comment on above: Order Comment: Speci men Type: BLOOD SPECIMENOrdering Facility: [facility] Address: [address] [place] [address] Performed By: #### 2 4320-06, ####[facility] LABORATORYCLIA [id number] [address] STATES [facility] Sodium [Moles/Vol] 137 mmol/L Normal 136-144 [facility] Comment on above: Order Comment: Johni francia Type: BLOOD SPECIMENOrdering Facility: [facility] Address: [address] [place] [address] Performed By: #### 2 4320-06, ####[facility] LABORATORYCLIA [id number] [address] STATES [facility] Urea nitrogen [Mass/Vol] 25 mg/dL High 9-24 [facility] Comment on above: Order Comment: Shira feldman Type: BLOOD SPECIMENOrdering Facility: [facility] Address: [address] [place] [address] Performed By: #### 2 4320-06, ####[facility] LABORATORYCLIA [id number] [place] [address] [place] CASE MANAGEMon 06-22-2021 CASE MANAGEM Normal [facility] CBC panel Auto (Bld)on 06-22 Erythrocyte distribution width (RBC) [Ratio] 16.0 % High 11.5-15.0 [facility] Comment on above: Order Comment: Jhoni men Type: BLOOD SPECIMENOrdering Facility: [facility] Address: [address] [address] Performed By: #### 5 8410-2 ####[facility] LABORATORYCLIA [id number] [address] Hematocrit (Bld) [Volume fraction] 30.5 % Low 39.0-51.0 [facility] Comment on above: Order Comment: Speci men Type: BLOOD SPECIMENOrdering Facility: [facility] Address: [address] [place] [address] Performed By: #### 5 8410-2 ####[facility]ORATORYCLIA [id number] [address] Hemoglobin (Bld) [Mass/Vol] 9.3 g/dL Low 13.0-17.0 [facility] Comment on above: Order Comment: Speci men Type: BLOOD SPECIMENOrdering Facility: [facility] Address: [address] [place] [address] Performed By: #### 5 8410-2 ####[facility] LABORATORYCLIA [id number] [address] MCH (RBC) [Entitic mass] 28.4 pg Normal 26.0-34.0 [facility] Comment on above: Order Comment: Speci men Type: BLOOD SPECIMENOrdering Facility: [facility] Address: [address] [place] [address] Performed By: #### 5 8410-2 ####[facility]ORATORYCLIA [id number] [address] MCHC (RBC) [Mass/Vol] 30.5 g/dL Normal 30.5-36.0 [facility] Comment on above: Order Comment: Speci men Type: BLOOD SPECIMENOrdering Facility: [facility] Address: [address] [place] [address] Performed By: #### 5 8410-2 ####[facility] LABORATORYCLIA [id number] [address] MCV (RBC) [Entitic vol] 93.3 fL Normal 80.0-100.0 [facility] Comment on above: Order Comment: Speci men Type: BLOOD SPECIMENOrdering Facility: [facility] Address: [address] [address] Performed By: #### 5 8410-2 ####[facility] LABORATORYCLIA [id number] [address] [place] Nucleated RBC (Bld) [#/Vol] 10*3/uL Normal <0.01 [facility] Comment on above: Order Comment: Speci men Type: BLOOD SPECIMENOrdering Facility: [facility] Address: [address] [place] [address] Performed By: #### 5 8410-2 ####[facility] LABORATORYCLIA [id number] [address] [place] Platelet mean volume (Bld) [Entitic vol] 11.5 fL Normal 9.0-12.7 [facility] Comment on above: Order Comment: Speci men Type: BLOOD SPECIMENOrdering Facility: [facility] Address: [address] [place] [address] Performed By: #### 5 8410-2 ####[facility]ORATORYCLIA [id number] [address] [place] Platelets (Bld) [#/Vol] 346 10*3/uL Normal 150-400 [facility] Comment on above: Order Comment: Speci men Type: BLOOD SPECIMENOrdering Facility: [facility] Address: [address] [place], [place] [id number] Performed By: #### 5 8410-2 ####[facility] LABORATORYCLIA [id number] [address] [place] RBC (Bld) [#/Vol] 3.27 10*6/uL Low 4.20-6.00 [facility] Comment on above: Order Comment: Speci men Type: BLOOD SPECIMENOrdering Facility: [facility] Address: [address] [place] [address] Performed By: #### 5 8410-2 ####[facility] LABORATORYCLIA [id number] [address] [place] WBC (Bld) [#/Vol] 9.44 10*3/uL Normal 3.70-11.00 [facility] Comment on above: Order Comment: Speci men Type: BLOOD SPECIMENOrdering Facility: [facility] Address: [address] [place] [address] Performed By: #### 5 8410-2 ####[facility] LABORATORYCLIA [id number] 08 [address] [place] HEMOGLOBIN (HGB)on Hemoglobin (Bld) [Mass/Vol] 9.7 g/dL Low 13.0-17.0 [facility] Comment on above: Order Comment: Speci men Type: BLOOD SPECIMENOrdering Facility: [facility] Address: [address] [place] [address] Performed By: #### H GB ####[facility] LABORATORYCLIA [id number] [address] [place] Magnesium SerPl-mCncon 06-22 Magnesium [Mass/Vol] 2.4 mg/dL High 1.7-2.3 [facility] Comment on above: Order Comment: Speci men Type: BLOOD SPECIMENOrdering Facility: [facility] Address: [address] [place] [address] Performed By: #### 2 4321-2, 62117-3 ####[facility]ORATORYCLIA [id number] [address] [place] THERAPY NTon 06-22-2021 THERAPY NT Normal [facility] THERAPY NT Normal [facility] aPTT PPPon 06-22-2021 aPTT Coag (PPP) [Time] 62.3 s High 23.0-32.4 [facility] Comment on above: Order Comment: Speci men Type: BLOOD SPECIMENOrdering Facility: [facility] Address: [address] [place] [address] Performed By: #### 1 4979-9 ####[facility]ORATORYCLIA [id number] [place] [address] [place] ALLIED HEALTHon 06-21-2021 ALLIED HEALTH Normal [facility] Basic metabolic 2000 panelon 06-21-2021 Anion gap [Moles/Vol] 8 mmol/L Low 9-18 [facility] Comment on above: Order Comment: Speci men Type: BLOOD SPECIMENOrdering Facility: [facility] Address: [address] [place] [address] Performed By: #### 2 4321-2, ####[facility] LABORATORYCLIA [id number] [place] [address] [place] Calcium [Mass/Vol] 8.2 mg/dL Low 8.5-10.2 [facility] Comment on above: Order Comment: Speci men Type: BLOOD SPECIMENOrdering Facility: [facility] Address: [address] [place] [address] Performed By: #### 2 432-2, ####[facility]ORATORYCLIA [id number] [place] [address] [place] Chloride [Moles/Vol] 108 mmol/L High 97-105 [facility] Comment on above: Order Comment: Speci men Type: BLOOD SPECIMENOrdering Facility: [facility] Address: [address] [place] [address] Performed By: #### 2 4321-2, ####[facility]ORATORYCLIA [id number] [place] [address] [place] CO2 [Moles/Vol] 24 mmol/L Normal 22-30 [facility] Comment on above: Order Comment: Speci men Type: BLOOD SPECIMENOrdering Facility: [facility] Address: [address] [place] [address] Performed By: #### 2 4321-2, ####[facility]ORATORYCLIA [id number] [place] [address] [place] Creatinine [Mass/Vol] 0.61 mg/dL Low 0.73-1.22 [facility] Comment on above: Order Comment: Shira feldman Type: BLOOD SPECIMENOrdering Facility: [facility] Address: [address] [id number] Performed By: #### 2 4321-2, ####[facility]ORATORYCLIA [id number] [place] [address] [place] GFR/1.73 sq M.predicted MDRD (S/P/Bld) [Vol rate/Area] mL/min/{1.73_m2} Normal [facility] Comment on above: Order Comment: Johncara feldman Type: BLOOD SPECIMENOrdering Facility: [facility] Address: [address] [place] [address] Result Comment: >60e GFR (Estimated GFR) Units [...] actual GFR. Performed By: #### 2 4321-2, ####[facility]ORATORYCLIA [id number] [address] [place] Glucose [Mass/Vol] 211 mg/dL High 74-99 [facility] Comment on above: Order Comment: Johncara feldman Type: BLOOD SPECIMENOrdering Facility: [facility] Address: [address] [place] [address] Result Comment: The [place] [employer] (ADA) [...] 2016.39(Suppl 1). Performed By: #### 2 4320-06, ####[facility]ORATORYCLIA [id number] [address] OF [facility] Potassium [Moles/Vol] 4.3 mmol/L Normal 3.7-5.1 [facility] Comment on above: Order Comment: Shira feldman Type: BLOOD SPECIMENOrdering Facility: [facility] Address: [address] [place] [address] Performed By: #### 2 4320-06, ####[facility]STERCLIA [id number] [address] Sodium [Moles/Vol] 140 mmol/L Normal 136-144 [facility] Comment on above: Order Comment: Shira feldman Type: BLOOD SPECIMENOrdering Facility: [facility] Address: [address] [place] [address] Performed By: #### 2 4320-06, ####[facility]ORATORYCLIA [id number] [address] STATES [facility] Urea nitrogen [Mass/Vol] 26 mg/dL High 9-24 [facility] Comment on above: Order Comment: Shira feldman Type: BLOOD SPECIMENOrdering Facility: [facility] Address: [address] [place] [address] Performed By: #### 2 4320-06, ####[facility]ATORYCLIA [id number] [address] OF [facility] CBC panel Auto (Bld)on 06-21 Erythrocyte distribution width (RBC) [Ratio] 16.1 % High 11.5-15.0 [facility] Comment on above: Order Comment: Speci men Type: BLOOD SPECIMENOrdering Facility: [facility] Address: [address] [place] [address] Performed By: #### 5 8410-2 ####[facility]ORATORYCLIA [id number] [address] Hematocrit (Bld) [Volume fraction] 29.7 % Low 39.0-51.0 [facility] Comment on above: Order Comment: Speci men Type: BLOOD SPECIMENOrdering Facility: [facility] Address: [address] [place] [address] Performed By: #### 5 8410-2 ####[facility]ORATORYCLIA [id number] [address] Hemoglobin (Bld) [Mass/Vol] 9.2 g/dL Low 13.0-17.0 [facility] Comment on above: Order Comment: Speci men Type: BLOOD SPECIMENOrdering Facility: [facility] Address: [address] [place] [address] Performed By: #### 5 8410-2 ####[facility]ORATORYCLIA [id number] [address] MCH (RBC) [Entitic mass] 28.8 pg Normal 26.0-34.0 [facility] Comment on above: Order Comment: Speci men Type: BLOOD SPECIMENOrdering Facility: [facility] Address: [address] [place] [address] Performed By: #### 5 8410-2 ####[facility]ORATORYCLIA [id number] [address] [place] MCHC (RBC) [Mass/Vol] 31.0 g/dL Normal 30.5-36.0 [facility] Comment on above: Order Comment: Speci men Type: BLOOD SPECIMENOrdering Facility: [facility] Address: [address] [place] [address] Performed By: #### 5 8410-2 ####[facility]ORATORYCLIA [id number] [address] STATES OF [facility] MCV (RBC) [Entitic vol] 93.1 fL Normal 80.0-100.0 [facility] Comment on above: Order Comment: Speci men Type: BLOOD SPECIMENOrdering Facility: [facility] Address: [address] [place] [address] Performed By: #### 5 8410-2 ####[facility]ATORYCLIA [id number] [address] Nucleated RBC (Bld) [#/Vol] 10*3/uL Normal <0.01 [facility] Comment on above: Order Comment: Speci men Type: BLOOD SPECIMENOrdering Facility: [facility] Address: [address] [place] [address] Performed By: #### 5 8410-2 ####[facility]ORATORYCLIA [id number] [address] Platelet mean volume (Bld) [Entitic vol] 11.6 fL Normal 9.0-12.7 [facility] Comment on above: Order Comment: Speci men Type: BLOOD SPECIMENOrdering Facility: [facility] Address: [address] [place] [address] Performed By: #### 5 8410-2 ####[facility]ATORYCLIA [id number] [address] Platelets (Bld) [#/Vol] 347 10*3/uL Normal 150-400 [facility] Comment on above: Order Comment: Speci men Type: BLOOD SPECIMENOrdering Facility: [facility] Address: [address] [place] [address] Performed By: #### 5 8410-2 ####[facility]ORATORYCLIA [id number] [address] [place] RBC (Bld) [#/Vol] 3.19 10*6/uL Low 4.20-6.00 [facility] Comment on above: Order Comment: Speci men Type: BLOOD SPECIMENOrdering Facility: [facility] Address: [address] [place] [address] Performed By: #### 5 8410-2 ####[facility]ORATORYCLIA [id number] [address] WBC (Bld) [#/Vol] 10.29 10*3/uL Normal 3.70-11.00 [facility] Comment on above: Order Comment: Speci men Type: BLOOD SPECIMENOrdering Facility: [facility] Address: [address] [place] [address] Performed By: #### 5 8410-2 ####[facility]ORATORYCLIA [id number] [address] CONSULT PROGon 06-21-2021 CONSULT PROG Normal [facility] CONSULT PROG Normal [facility] Magnesium SerPl-mCncon 06-21 Magnesium [Mass/Vol] 2.5 mg/dL High 1.7-2.3 [facility] Comment on above: Order Comment: Speci men Type: BLOOD SPECIMENOrdering Facility: [facility] Address: [address] [place] [address] Performed By: #### 2 4321-2, 58035-0 ####[facility]ORATORYCLIA [id number] [address] [place] NUTRITIONon 06-21-2021 NUTRITION Normal [facility] XR CHEST 1V FRONTALon 2021 XR CHEST 1V FRONTAL Normal [facility] aPTT PPPon 06-21-2021 aPTT Coag (PPP) [Time] 68.5 s High 23.0-32.4 [facility] Comment on above: Order Comment: Speci men Type: BLOOD SPECIMENOrdering Facility: [facility] Address: [address] [place] [address] Performed By: #### 1 4979-9 ####[facility]ORATORYCLIA [id number] [address] [place] aPTT Coag (PPP) [Time] 57.8 s High 23.0-32.4 [facility] Comment on above: Order Comment: Speci men Type: BLOOD SPECIMENOrdering Facility: [facility] Address: [address] [place] [address] Performed By: #### 1 4979-9 ####[facility]ORATORYCLIA [id number] [place] [address] [place] Basic metabolic 2000 panelon 06-20-2021 Anion gap [Moles/Vol] 9 mmol/L Normal 9-18 [facility] Comment on above: Order Comment: Speci men Type: BLOOD SPECIMENOrdering Facility: [facility] Address: [address] [place] [address] Performed By: #### 2 4321-2, ####[facility]ORATORYCLIA [id number] [place] [address] [place] Calcium [Mass/Vol] 8.3 mg/dL Low 8.5-10.2 [facility] Comment on above: Order Comment: Speci men Type: BLOOD SPECIMENOrdering Facility: [facility] Address: [address] [place] [address] Performed By: #### 2 4321-2, ####[facility]ORATORYCLIA [id number] [place] [address] [place] Chloride [Moles/Vol] 111 mmol/L High 97-105 [facility] Comment on above: Order Comment: Speci men Type: BLOOD SPECIMENOrdering Facility: [facility] Address: [address] [place] [address] Performed By: #### 2 4321-2, ####[facility]ORATORYCLIA [id number] [place] [address] [place] CO2 [Moles/Vol] 24 mmol/L Normal 22-30 [facility] Comment on above: Order Comment: Speci men Type: BLOOD SPECIMENOrdering Facility: [facility] Address: [address] [place] [address] Performed By: #### 2 4321-2, ####[facility]ORATORYCLIA [id number] [place] [address] [place] Creatinine [Mass/Vol] 0.64 mg/dL Low 0.73-1.22 [facility] Comment on above: Order Comment: Speci [facility] Type: BLOOD SPECIMENOrdering Facility: [facility] Address: [address] [place], [place] [address] Performed By: #### 2 432-, ####[facility]ORATORYCLIA [id number] [place] [address] [place] GFR/1.73 sq M.predicted MDRD (S/P/Bld) [Vol rate/Area] mL/min/{1.73_m2} Normal [facility] Comment on above: Order Comment: [facility] Type: BLOOD SPECIMENOrdering Facility: [facility] Address: [address] [place] [address] Result Comment: >60e GFR (Estimated GFR) Units [...] actual GFR. Performed By: #### 2 432-2, ####[facility]ORATORYCLIA [id number] [place] [address] [place] Glucose [Mass/Vol] 114 mg/dL High 74-99 [facility] Comment on above: Order Comment: Shira francia Type: BLOOD SPECIMENOrdering Facility: [facility] Address: [address] [place] [address] Result Comment: The [place] [employer] (ADA) [...] 2016.39(Suppl 1). Performed By: #### 2 4320-06, ####[facility]ORATORYCLIA [id number] [place] [address] [place] [facility] Potassium [Moles/Vol] 4.1 mmol/L Normal 3.7-5.1 [facility] Comment on above: Order Comment: Speccara feldman Type: BLOOD SPECIMENOrdering Facility: [facility] Address: [address] [place] [address] Performed By: #### 2 ####[facility]STERCLIA [id number] [address] STATES [facility] Sodium [Moles/Vol] 144 mmol/L Normal 136-144 [facility] Comment on above: Order Comment: Shira feldman Type: BLOOD SPECIMENOrdering Facility: [facility] Address: [address] [place] [address] Performed By: #### 2 4320-06, ####[facility]ORATORYCLIA [id number] [address] [place] Urea nitrogen [Mass/Vol] 27 mg/dL High 9-24 [facility] Comment on above: Order Comment: Shira feldman Type: BLOOD SPECIMENOrdering Facility: [facility] Address: [facility] [address] Performed By: #### 2 4320-06, ####[facility]ORATORYCLIA [id number] [address] STATES OF [facility] CASE MANAGEMon 06-20-2021 CASE MANAGEM Normal [facility] CBC panel Auto (Bld)on 06-20 Erythrocyte distribution width (RBC) [Ratio] 15.9 % High 11.5-15.0 [facility] Comment on above: Order Comment: Speci men Type: BLOOD SPECIMENOrdering Facility: [facility] Address: [address] [place] [address] Performed By: #### 5 8410-2 ####[facility]ORATORYCLIA [id number] [address] Hematocrit (Bld) [Volume fraction] 31.0 % Low 39.0-51.0 [facility] Comment on above: Order Comment: Speci men Type: BLOOD SPECIMENOrdering Facility: [facility] Address: [address] [place] [address] Performed By: #### 5 8410-2 ####[facility]ORATORYCLIA [id number] [address] Hemoglobin (Bld) [Mass/Vol] 9.2 g/dL Low 13.0-17.0 [facility] Comment on above: Order Comment: Speci men Type: BLOOD SPECIMENOrdering Facility: [facility] Address: [address] [place] [address] Performed By: #### 5 8410-2 ####[facility]ORATORYCLIA [id number] [address] MCH (RBC) [Entitic mass] 27.4 pg Normal 26.0-34.0 [facility] Comment on above: Order Comment: Speci men Type: BLOOD SPECIMENOrdering Facility: [facility] Address: [address] [place] [address] Performed By: #### 5 8410-2 ####[facility]ORATORYCLIA [id number] [address] [place] MCHC (RBC) [Mass/Vol] 29.7 g/dL Low 30.5-36.0 [facility] Comment on above: Order Comment: Speci men Type: BLOOD SPECIMENOrdering Facility: [facility] Address: [address] [address] Performed By: #### 5 8410-2 ####[facility]ORATORYCLIA [id number] [address] MCV (RBC) [Entitic vol] 92.3 fL Normal 80.0-100.0 [facility] Comment on above: Order Comment: Speci men Type: BLOOD SPECIMENOrdering Facility: [facility] Address: [address] [address] Performed By: #### 5 8410-2 ####[facility]ORATORYCLIA [id number] [address] [place] Nucleated RBC (Bld) [#/Vol] 10*3/uL Normal <0.01 [facility] Comment on above: Order Comment: Speci men Type: BLOOD SPECIMENOrdering Facility: [facility] Address: [address] [address] Performed By: #### 5 8410-2 ####[facility]ORATORYCLIA [id number] [address] [place] Platelet mean volume (Bld) [Entitic vol] 11.5 fL Normal 9.0-12.7 [facility] Comment on above: Order Comment: Speci men Type: BLOOD SPECIMENOrdering Facility: [facility] Address: [address] Performed By: #### 5 8410-2 ####[facility]ORATORYCLIA [id number] [address] [place] Platelets (Bld) [#/Vol] 343 10*3/uL Normal 150-400 [facility] Comment on above: Order Comment: Speci men Type: BLOOD SPECIMENOrdering Facility: [facility] Address: [address] [address] Performed By: #### 5 8410-2 ####[facility]ORATORYCLIA [id number] [place] [address] [place] RBC (Bld) [#/Vol] 3.36 10*6/uL Low 4.20-6.00 [facility] Comment on above: Order Comment: Speci men Type: BLOOD SPECIMENOrdering Facility: [facility] Address: [address] [place] [address] Performed By: #### 5 8410-2 ####[facility]ORATORYCLIA [id number] [place] [address] [place] WBC (Bld) [#/Vol] 10.71 10*3/uL Normal 3.70-11.00 [facility] Comment on above: Order Comment: Speci men Type: BLOOD SPECIMENOrdering Facility: [facility] Address: [address] [place] [address] Performed By: #### 5 8410-2 ####[facility]ORATORYCLIA [id number] [address] CONSULT PROGon 06-20-2021 CONSULT PROG Normal [facility] HEMOGLOBIN (HGB)on Hemoglobin (Bld) [Mass/Vol] 9.7 g/dL Low 13.0-17.0 [facility] Comment on above: Order Comment: Speci men Type: BLOOD SPECIMENOrdering Facility: [facility] Address: [address] [place] [address] Performed By: #### H GB ####[facility]ORATORYCLIA [id number] [address] [place] Magnesium SerPl-mCncon 06-20 Magnesium [Mass/Vol] 2.5 mg/dL High 1.7-2.3 [facility] Comment on above: Order Comment: Speci men Type: BLOOD SPECIMENOrdering Facility: [facility] Address: [address] [place] [address] Performed By: #### 2 4321-2, 33736-1 ####[facility]ORATORYCLIA [id number] [address] NURSING PROGon 06-20-2021 NURSING PROG Normal [facility] THERAPY NTon 06-20-2021 THERAPY NT Normal [facility] aPTT PPPon 06-20-2021 aPTT Coag (PPP) [Time] 93.5 s High 23.0-32.4 [facility] Comment on above: Order Comment: Speci men Type: BLOOD SPECIMENOrdering Facility: [facility] Address: [address] [place] [address] Performed By: #### 1 4979-9 ####[facility]ORATORYCLIA [id number] [address] aPTT Coag (PPP) [Time] 47.1 s High 23.0-32.4 [facility] Comment on above: Order Comment: Speci men Type: BLOOD SPECIMENOrdering Facility: [facility] Address: [address] [place] [address] Performed By: #### 1 4979-9 ####[facility]ORATORYCLIA [id number] [address] [place] Basic metabolic 2000 panelon 06-19-2021 Anion gap [Moles/Vol] 7 mmol/L Low 9-18 [facility] Comment on above: Order Comment: Speci men Type: BLOOD SPECIMENOrdering Facility: [facility] Address: [address] [place] [address] Performed By: #### 2 4321-2 ####[facility]ORATORYCLIA [id number] [address] STATES OF [facility] Calcium [Mass/Vol] 8.1 mg/dL Low 8.5-10.2 [facility] Comment on above: Order Comment: Speci men Type: BLOOD SPECIMENOrdering Facility: [facility] Address: [address] [place] [address] Performed By: #### 2 4321-2 ####[facility]ORATORYCLIA [id number] [address] [place] [facility] Chloride [Moles/Vol] 111 mmol/L High 97-105 [facility] Comment on above: Order Comment: Johncara feldman Type: BLOOD SPECIMENOrdering Facility: [facility] Address: [address] [place] [address] Performed By: #### 2 4321-2 ####[facility]ORATORYCLIA [id number] [place] [address] [place] CO2 [Moles/Vol] 24 mmol/L Normal 22-30 [facility] Comment on above: Order Comment: Shira francia Type: BLOOD SPECIMENOrdering Facility: [facility] Address: [address] [place] [address] Performed By: #### 2 4321-2 ####[facility]ORATORYCLIA [id number] [address] [place] Creatinine [Mass/Vol] 0.71 mg/dL Low 0.73-1.22 [facility] Comment on above: Order Comment: Shira francia Type: BLOOD SPECIMENOrdering Facility: [facility] Address: [address] [place] [address] Performed By: #### 2 4321-2 ####[facility]ORATORYCLIA [id number] [place] [address] [place] GFR/1.73 sq M.predicted MDRD (S/P/Bld) [Vol rate/Area] mL/min/{1.73_m2} Normal [facility] Comment on above: Order Comment: Shira francia Type: BLOOD SPECIMENOrdering Facility: [facility] Address: [address] [place] [address] Result Comment: >60e GFR (Estimated GFR) Units [...] actual GFR. Performed By: #### 2 4321-2 ####[facility]ORATORYCLIA [id number] [place] [address] [place] Glucose [Mass/Vol] 110 mg/dL High 74-99 [facility] Comment on above: Order Comment: Shira francia Type: BLOOD SPECIMENOrdering Facility: [facility] Address: [address] [place] [address] Result Comment: The [place] [employer] (ADA) [...] 2016.39(Suppl 1). Performed By: #### 2 4321-2 ####[facility] LABORATORYCLIA [id number] [place] [address] [place] Potassium [Moles/Vol] 3.7 mmol/L Normal 3.7-5.1 [facility] Comment on above: Order Comment: Shira francia Type: BLOOD SPECIMENOrdering Facility: [facility] Address: [address] [place] [address] Performed By: #### 2 4321-2 ####[facility] LABORATORYCLIA [id number] [place] [address] [place] Sodium [Moles/Vol] 142 mmol/L Normal 136-144 [facility] Comment on above: Order Comment: Shira francia Type: BLOOD SPECIMENOrdering Facility: [facility] Address: [address] [address] Performed By: #### 2 4321-2 ####[facility] LABORATORYCLIA [id number] [address] [place] [address] [place] Urea nitrogen [Mass/Vol] 26 mg/dL High 9-24 [facility] Comment on above: Order Comment: Speci men Type: BLOOD SPECIMENOrdering Facility: [facility] Address: [address] [place] [address] Performed By: #### 2 4321-2 ####[facility] LABORATORYCLIA [id number] [address] [place] [facility] CBC panel Auto (Bld)on 06-19 Erythrocyte distribution width (RBC) [Ratio] 15.7 % High 11.5-15.0 [facility] Comment on above: Order Comment: Speci men Type: BLOOD SPECIMENOrdering Facility: [facility] Address: [address] [place] [address] Performed By: #### 5 8410-2 ####[facility] LABORATORYIA [id number] [address] [place] [facility] Hematocrit (Bld) [Volume fraction] 30.9 % Low 39.0-51.0 [facility] Comment on above: Order Comment: Speci men Type: BLOOD SPECIMENOrdering Facility: [facility] Address: [address] [place] [address] Performed By: #### 5 8410-2 ####[facility] LABORATORYCLIA [id number] [address] [place] [facility] Hemoglobin (Bld) [Mass/Vol] 9.5 g/dL Low 13.0-17.0 [facility] Comment on above: Order Comment: Speci men Type: BLOOD SPECIMENOrdering Facility: [facility] Address: [address] [place] [address] Performed By: #### 5 8410-2 ####[facility]ORATORYCLIA [id number] [address] [place] MCH (RBC) [Entitic mass] 28.4 pg Normal 26.0-34.0 [facility] Comment on above: Order Comment: Speci men Type: BLOOD SPECIMENOrdering Facility: [facility] Address: [address] [place] [address] Performed By: #### 5 8410-2 ####[facility]ORATORYCLIA [id number] [address] MCHC (RBC) [Mass/Vol] 30.7 g/dL Normal 30.5-36.0 [facility] Comment on above: Order Comment: Speci men Type: BLOOD SPECIMENOrdering Facility: [facility] Address: [address] [place] [address] Performed By: #### 5 8410-2 ####[facility]ORATORYCLIA [id number] [address] MCV (RBC) [Entitic vol] 92.2 fL Normal 80.0-100.0 [facility] Comment on above: Order Comment: Speci men Type: BLOOD SPECIMENOrdering Facility: [facility] Address: [address] [place] [address] Performed By: #### 5 8410-2 ####[facility]ORATORYCLIA [id number] [address] Nucleated RBC (Bld) [#/Vol] 10*3/uL Normal <0.01 [facility] Comment on above: Order Comment: Speci men Type: BLOOD SPECIMENOrdering Facility: [facility] Address: [address] [place] [address] Performed By: #### 5 8410-2 ####[facility]ORATORYCLIA [id number] [address] Platelet mean volume (Bld) [Entitic vol] 11.7 fL Normal 9.0-12.7 [facility] Comment on above: Order Comment: Speci men Type: BLOOD SPECIMENOrdering Facility: [facility] Address: [address] [place] [address] Performed By: #### 5 8410-2 ####[facility]ORATORYCLIA [id number] [address] [facility] Platelets (Bld) [#/Vol] 323 10*3/uL Normal 150-400 [facility] Comment on above: Order Comment: Speci men Type: BLOOD SPECIMENOrdering Facility: [facility] Address: [address] [place] [address] Performed By: #### 5 8410-2 ####[facility]ORATORYCLIA [id number] [place] [address] [place] RBC (Bld) [#/Vol] 3.35 10*6/uL Low 4.20-6.00 [facility] Comment on above: Order Comment: Speci men Type: BLOOD SPECIMENOrdering Facility: [facility] Address: [address] [place] [address] Performed By: #### 5 8410-2 ####[facility]ORATORYCLIA [id number] [address] OF [facility] WBC (Bld) [#/Vol] 9.53 10*3/uL Normal 3.70-11.00 [facility] Comment on above: Order Comment: Speci men Type: BLOOD SPECIMENOrdering Facility: [facility] Address: [address] [place] [address] Performed By: #### 5 8410-2 ####[facility]ORATORYCLIA [id number] [address] [place] HEMOGLOBIN (HGB)on 2 Hemoglobin (Bld) [Mass/Vol] 9.7 g/dL Low 13.0-17.0 [facility] Comment on above: Order Comment: Speci men Type: BLOOD SPECIMENOrdering Facility: [facility] Address: [address] [place] [address] Performed By: #### H GB ####[facility]ORATORYCLIA [id number] [address] OF [facility] Magnesium SerPl-mCncon 06-19 Magnesium [Mass/Vol] 2.5 mg/dL High 1.7-2.3 [facility] Comment on above: Order Comment: Speci men Type: BLOOD SPECIMENOrdering Facility: [facility] Address: [address] [place] [address] Performed By: #### 1 9123-9, 27771 ####[facility]ORATORYCLIA [id number] [address] [place] NURSING PROGon 06-19-2021 NURSING PROG Normal [facility] Phosphate SerPl-mCncon 06-19 Phosphate [Mass/Vol] 2.6 mg/dL Low 2.7-4.8 [facility] Comment on above: Order Comment: Speci men Type: BLOOD SPECIMENOrdering Facility: [facility] Address: [address] [place] [address] Performed By: #### 1 9123-9, 27711-04 ####[facility]ORATORYCLIA [id number] [address] [place] aPTT PPPon 06-19-2021 aPTT Coag (PPP) [Time] 61.9 s High 23.0-32.4 [facility] Comment on above: Order Comment: Speci men Type: BLOOD SPECIMENOrdering Facility: [facility] Address: [address] [place] [address] Performed By: #### 1 4979-9 ####[facility]ORATORYCLIA [id number] [address] [place] [facility] aPTT Coag (PPP) [Time] 68.6 s High 23.0-32.4 [facility] Comment on above: Order Comment: Speci men Type: BLOOD SPECIMENOrdering Facility: [facility] Address: [address] [place] [address] Performed By: #### 1 4979-9 ####[facility]ORATORYCLIA [id number] [address] [place] aPTT Coag (PPP) [Time] 83.2 s High 23.0-32.4 [facility] Comment on above: Order Comment: Speci men Type: BLOOD SPECIMENOrdering Facility: [facility] Address: [address] [place] [address] Performed By: #### 1 4979-9 ####[facility]ORATORYCLIA [id number] [place] [address] [place] Basic metabolic 2000 panelon 06-18-2021 Anion gap [Moles/Vol] 7 mmol/L Low 9-18 [facility] Comment on above: Order Comment: Speci men Type: BLOOD SPECIMENOrdering Facility: [facility] Address: [address] [place] [address] Performed By: #### 2 4321-2, , 2776-05 ####[facility] LABORATORYCLIA [id number] [place] [address] [place] Calcium [Mass/Vol] 8.2 mg/dL Low 8.5-10.2 [facility] Comment on above: Order Comment: Speci men Type: BLOOD SPECIMENOrdering Facility: [facility] Address: [address] [place] [address] Performed By: #### 2 4321-2, , 2776-05 ####[facility]ORATORYCLIA [id number] [place] [address] [place] Chloride [Moles/Vol] 115 mmol/L High 97-105 [facility] Comment on above: Order Comment: Speci men Type: BLOOD SPECIMENOrdering Facility: [facility] Address: [address] [place] [address] Performed By: #### 2 4321-2, , 2776-05 ####[facility]ORATORYCLIA [id number] [place] [address] [place] CO2 [Moles/Vol] 23 mmol/L Normal 22-30 [facility] Comment on above: Order Comment: Speci men Type: BLOOD SPECIMENOrdering Facility: [facility] Address: [address] [place] [address] Performed By: #### 2 4321-2, , 2776-05 ####[facility]ORATORYCLIA [id number] [place] [address] [place] Creatinine [Mass/Vol] 0.70 mg/dL Low 0.73-1.22 [facility] Comment on above: Order Comment: Shira feldman Type: BLOOD SPECIMENOrdering Facility: [facility] Address: [address] [place] [address] Performed By: #### 2 4321-2, , 2776-05 ####[facility]ORATORYCLIA [id number] [place] [address] [place] GFR/1.73 sq M.predicted MDRD (S/P/Bld) [Vol rate/Area] mL/min/{1.73_m2} Normal [facility] Comment on above: Order Comment: [facility] Type: BLOOD SPECIMENOrdering Facility: [facility] Address: [address] [place] [address] Result Comment: >60e GFR (Estimated GFR) Units [...] Performed By: #### 2 4321-2, , 2776-05 ####[facility] LABORATORYCLIA [id number] [place] [address] [place] Glucose [Mass/Vol] 105 mg/dL High 74-99 [facility] Comment on above: Order Comment: Shira francia Type: BLOOD SPECIMENOrdering Facility: [facility] Address: [address] [place] [address] Result Comment: The [place] [employer] (ADA) [...] Performed By: #### 2 4321-2, , 2776-05 ####[facility]ORATORYCLIA [id number] [place] [address] [place] Potassium [Moles/Vol] 4.1 mmol/L Normal 3.7-5.1 [facility] Comment on above: Order Comment: Johni francia Type: BLOOD SPECIMENOrdering Facility: [facility] Address: [address] [place] [address] Performed By: #### 2 1-2, , 2776-05 ####[facility]ORATORYCLIA [id number] [place] [address] [place] Sodium [Moles/Vol] 145 mmol/L High 136-144 [facility] Comment on above: Order Comment: Johni francia Type: BLOOD SPECIMENOrdering Facility: [facility] Address: [address] [place] [address] Performed By: #### 2 4321-2, , 2776-05 ####[facility]ORATORYCLIA [id number] [place] [address] [place] Urea nitrogen [Mass/Vol] 27 mg/dL High 9-24 [facility] Comment on above: Order Comment: Johni men Type: BLOOD SPECIMENOrdering Facility: [facility] Address: [address] [place] [address] Performed By: #### 2 4321-2, , 2776-05 ####[facility]ORATORYCLIA [id number] [address] CALCIUM IONIZED Bon 06-18-19 Calcium.ionized (BldV) [Mass/Vol] 1.22 mmol/L Normal 1.08-1.30 [facility] Comment on above: Order Comment: Speci men Type: BLOOD SPECIMENOrdering Facility: [facility] Address: [address] [place] [address] Performed By: #### I CA ####[facility]ORATORYCLIA [id number] [address] Calcium.ionized adjusted to pH 7.4 (Bld) [Moles/Vol] 1.23 mmol/L Normal 1.08-1.30 [facility] Comment on above: Order Comment: Speci men Type: BLOOD SPECIMENOrdering Facility: [facility] Address: [address] [place] [address] Performed By: #### I CA ####[facility]ORATORYCLIA [id number] [address] CBC panel Auto (Bld)on 06-18 Erythrocyte distribution width (RBC) [Ratio] 15.8 % High 11.5-15.0 [facility] Comment on above: Order Comment: Speci men Type: BLOOD SPECIMENOrdering Facility: [facility] Address: [address] [place] [address] Performed By: #### 5 8410-2 ####[facility]ORATORYCLIA [id number] [address] Hematocrit (Bld) [Volume fraction] 29.5 % Low 39.0-51.0 [facility] Comment on above: Order Comment: Speci men Type: BLOOD SPECIMENOrdering Facility: [facility] Address: [address] [place] [address] Performed By: #### 5 8410-2 ####[facility]ORATORYCLIA [id number] [address] Hemoglobin (Bld) [Mass/Vol] 8.8 g/dL Low 13.0-17.0 [facility] Comment on above: Order Comment: Speci men Type: BLOOD SPECIMENOrdering Facility: [facility] Address: [address] [place] [address] Performed By: #### 5 8410-2 ####[facility]ORATORYCLIA [id number] [address] MCH (RBC) [Entitic mass] 27.4 pg Normal 26.0-34.0 [facility] Comment on above: Order Comment: Speci men Type: BLOOD SPECIMENOrdering Facility: [facility] Address: [address] [place] [address] Performed By: #### 5 8410-2 ####[facility]ORATORYCLIA [id number] [address] MCHC (RBC) [Mass/Vol] 29.8 g/dL Low 30.5-36.0 [facility] Comment on above: Order Comment: Speci men Type: BLOOD SPECIMENOrdering Facility: [facility] Address: [address] [place] [address] Performed By: #### 5 8410-2 ####[facility]ORATORYCLIA [id number] [address] MCV (RBC) [Entitic vol] 91.9 fL Normal 80.0-100.0 [facility] Comment on above: Order Comment: Speci men Type: BLOOD SPECIMENOrdering Facility: [facility] Address: [address] [place] [address] Performed By: #### 5 8410-2 ####[facility]ORATORYCLIA [id number] [address] Nucleated RBC (Bld) [#/Vol] 10*3/uL Normal <0.01 [facility] Comment on above: Order Comment: Speci men Type: BLOOD SPECIMENOrdering Facility: [facility] Address: [address] [place] [address] Performed By: #### 5 8410-2 ####[facility]ORATORYCLIA [id number] [address] [place] Platelet mean volume (Bld) [Entitic vol] 11.9 fL Normal 9.0-12.7 [facility] Comment on above: Order Comment: Speci men Type: BLOOD SPECIMENOrdering Facility: [facility] Address: [address] [place] [address] Performed By: #### 5 8410-2 ####[facility]ORATORYCLIA [id number] [address] [place] Platelets (Bld) [#/Vol] 291 10*3/uL Normal 150-400 [facility] Comment on above: Order Comment: Speci men Type: BLOOD SPECIMENOrdering Facility: [facility] Address: [address] [place] [address] Performed By: #### 5 8410-2 ####[facility]ORATORYCLIA [id number] [address] [place] [facility] RBC (Bld) [#/Vol] 3.21 10*6/uL Low 4.20-6.00 [facility] Comment on above: Order Comment: Speci men Type: BLOOD SPECIMENOrdering Facility: [facility] Address: [address] [place] [address] Performed By: #### 5 8410-2 ####[facility]ORATORYCLIA [id number] [address] [place] WBC (Bld) [#/Vol] 10.19 10*3/uL Normal 3.70-11.00 [facility] Comment on above: Order Comment: Speci men Type: BLOOD SPECIMENOrdering Facility: [facility] Address: [address] [place] [address] Performed By: #### 5 8410-2 ####[facility]ORATORYCLIA [id number] [address] [place] FERRITIN BLDon 06-18-2021 Ferritin [Mass/Vol] 600.9 ng/mL High 30.3-565.7 [facility] Comment on above: Order Comment: Speci men Type: BLOOD SPECIMENOrdering Facility: [facility] Address: [address] [place] [address] Performed By: #### S ERFOL, IRON, FERR ####[facility]ORATORYCLIA [id number] [address] [place] FOLATE SERUMon 06-18-2021 Folate [Mass/Vol] 14.3 ng/mL Normal >4.7 [facility] Comment on above: Order Comment: Speci men Type: BLOOD SPECIMENOrdering Facility: [facility] Address: [address] [place] [address] Performed By: #### S ERFOL, IRON, FERR ####[facility]ORATORYCLIA [id number] [address] OF [facility] Gas and Carbon monoxide pane l (BldV)on 06-18-2021 Base excess Calc (BldV) [Moles/Vol] 0.5 mmol/L Normal 0-2 [facility] Comment on above: Order Comment: Speci men Type: VENOUS BLOOD SPECIMENOrdering Facility: [facility] Address: [address] [place] [address] Performed By: #### 2 4344-4 ####[facility]ORATORYCLIA [id number] [address] [place] [facility] Body temperature 97.34 [degF] Normal [facility] Comment on above: Order Comment: Speci men Type: VENOUS BLOOD SPECIMENOrdering Facility: [facility] Address: [address] [place] [address] Performed By: #### 2 4344-4 ####[facility]ORATORYCLIA [id number] [address] [place] CALCIUM IONIZED, PH CORRECTED 1.26 mmol/L Normal 1.08-1.30 [facility] Comment on above: Order Comment: Speci men Type: VENOUS BLOOD SPECIMENOrdering Facility: [facility] Address: [address] [place] [address] Performed By: #### 2 4344-4 ####[facility]ORATORYCLIA [id number] [address] Calcium.ionized (BldV) [Mass/Vol] 1.25 mmol/L Normal 1.08-1.30 [facility] Comment on above: Order Comment: Speci men Type: VENOUS BLOOD SPECIMENOrdering Facility: [facility] Address: [address] [place] [address] Performed By: #### 2 4344-4 ####[facility]ORATORYCLIA [id number] [address] [place] Carboxyhemoglobin (BldV) [Mass fraction] 1.5 % Normal 0.0-2.0 [facility] Comment on above: Order Comment: Speci men Type: VENOUS BLOOD SPECIMENOrdering Facility: [facility] Address: [address] [place] [address] Result Comment: Carb oxyhemoglobin Reference Range for Smokers: 2.0-8.0% Performed By: #### 2 4344-4 ####[facility]ORATORYCLIA [id number] [address] CO2 (BldV) [Partial pressure] 38 mm[Hg] Low 42-55 [facility] Comment on above: Order Comment: Speci men Type: VENOUS BLOOD SPECIMENOrdering Facility: [facility] Address: [address] [place] [address] Performed By: #### 2 4344-4 ####[facility]ORATORYCLIA [id number] [address] [place] CO2 [Moles/Vol] 22.9 mmol/L Low 25-29 [facility] Comment on above: Order Comment: Speci men Type: VENOUS BLOOD SPECIMENOrdering Facility: [facility] Address: [address] [place] [address] Performed By: #### 2 4344-4 ####[facility]ORATORYCLIA [id number] [address] CO2 adjusted to patient's actual temperature (BldV) [Partial pressure] 37 mmHg Low 42-55 [facility] Comment on above: Order Comment: Speci men Type: VENOUS BLOOD SPECIMENOrdering Facility: [facility] Address: [address] [place] [address] Performed By: #### 2 4344-4 ####[facility] LABORATORYCLIA [id number] [place] [address] [place] Glucose [Mass/Vol] 103 mg/dL Normal 60-105 [facility] Comment on above: Order Comment: Speci men Type: VENOUS BLOOD SPECIMENOrdering Facility: [facility] Address: [address] [place] [address] Performed By: #### 2 4344-4 ####[facility]ORATORYCLIA [id number] [place] [address] [place] HCO3 (Bld) [Moles/Vol] 24.4 mmol/L Normal 24-28 [facility] Comment on above: Order Comment: Speci men Type: VENOUS BLOOD SPECIMENOrdering Facility: [facility] Address: [address] [place] [address] Performed By: #### 2 4344-4 ####[facility]ORATORYCLIA [id number] [address] [place] Hematocrit (Bld) [Volume fraction] 28.7 % Low 39.0-51.0 [facility] Comment on above: Order Comment: Speci men Type: VENOUS BLOOD SPECIMENOrdering Facility: [facility] Address: [address] [address] Performed By: #### 2 4344-4 ####[facility]ORATORYCLIA [id number] [address] [place] Hemoglobin (Bld) [Mass/Vol] 9.3 g/dL Low 13.0-17.0 [facility] Comment on above: Order Comment: Speci men Type: VENOUS BLOOD SPECIMENOrdering Facility: [facility] Address: [address] [place] [address] Performed By: #### 2 4344-4 ####[facility]ORATORYCLIA [id number] [address] Methemoglobin (Bld) [Mass fraction] % Normal 0.0-1.5 [facility] Comment on above: Order Comment: Speci men Type: VENOUS BLOOD SPECIMENOrdering Facility: [facility] Address: [address] [place] [address] Performed By: #### 2 4344-4 ####[facility]ORATORYCLIA [id number] [address] O2 THERAPY Ventilator Normal [facility] Comment on above: Order Comment: Speci men Type: VENOUS BLOOD SPECIMENOrdering Facility: [facility] Address: [address] [place] [address] Performed By: #### 2 4344-4 ####[facility]ORATORYCLIA [id number] [address] Oxygen (BldV) [Partial pressure] 37 mm[Hg] Normal 35-45 [facility] Comment on above: Order Comment: Speci men Type: VENOUS BLOOD SPECIMENOrdering Facility: [facility] Address: [address] [place] [address] Performed By: #### 2 4344-4 ####[facility]ORATORYCLIA [id number] [address] Oxygen adjusted to patient's actual temperature (BldV) [Partial pressure] 35.1 mmHg Normal 35-45 [facility] Comment on above: Order Comment: Speci men Type: VENOUS BLOOD SPECIMENOrdering Facility: [facility] Address: [address] [place] [address] Performed By: #### 2 4344-4 ####[facility]ORATORYCLIA [id number] [address] Oxygen saturation in Blood 67.1 % Normal 60-85 [facility] Comment on above: Order Comment: Speci men Type: VENOUS BLOOD SPECIMENOrdering Facility: [facility] Address: [address] [place] [address] Performed By: #### 2 4344-4 ####[facility] LABORATORYCLIA [id number] [address] Oxyhemoglobin (BldV) [Mass fraction] 66 % Normal 60-85 [facility] Comment on above: Order Comment: Speci men Type: VENOUS BLOOD SPECIMENOrdering Facility: [facility] Address: [address] [place] [address] Performed By: #### 2 4344-4 ####[facility] LABORATORYCLIA [id number] [address] [place] pH (BldV) 7.42 [pH] Normal 7.32-7.42 [facility] Comment on above: Order Comment: Speci men Type: VENOUS BLOOD SPECIMENOrdering Facility: [facility] Address: [address] [place] [address] Performed By: #### 2 4344-4 ####[facility] LABORATORYCLIA [id number] [address] pH adjusted to patient's actual temperature (BldV) 7.43 High 7.32-7.42 [facility] Comment on above: Order Comment: Speci men Type: VENOUS BLOOD SPECIMENOrdering Facility: [facility] Address: [address] [place] [address] Performed By: #### 2 4344-4 ####[facility] LABORATORYCLIA [id number] [address] [place] Potassium [Moles/Vol] 4.0 mmol/L Normal 3.5-5.0 [facility] Comment on above: Order Comment: Speci men Type: VENOUS BLOOD SPECIMENOrdering Facility: [facility] Address: [address] [place] [address] Performed By: #### 2 4344-4 ####[facility] LABORATORYCLIA [id number] [address] [place] Sodium [Moles/Vol] 146 mmol/L High 136-144 [facility] Comment on above: Order Comment: Speci men Type: VENOUS BLOOD SPECIMENOrdering Facility: [facility] Address: [address] [place] [address] Performed By: #### 2 4344-4 ####[facility] LABORATORYCLIA [id number] [address] [place] HEMOGLOBIN (HGB)on 2 Hemoglobin (Bld) [Mass/Vol] 9.2 g/dL Low 13.0-17.0 [facility] Comment on above: Order Comment: Speci men Type: BLOOD SPECIMENOrdering Facility: [facility] Address: [address] [place] [address] Performed By: #### H GB ####[facility] LABORATORYCLIA [id number] [address] [place] IRON + TIBCon 06-18-2021 Iron [Mass/Vol] 27 ug/dL Low 41-186 [facility] Comment on above: Order Comment: Speci men Type: BLOOD SPECIMENOrdering Facility: [facility] Address: [address] [place] [address] Performed By: #### S ERFOL, IRON, FERR ####[facility]ORATORYCLIA [id number] [address] [place] Iron binding capacity [Mass/Vol] 141 ug/dL Low 232-386 [facility] Comment on above: Order Comment: Speci men Type: BLOOD SPECIMENOrdering Facility: [facility] Address: [address] [place] [address] Performed By: #### S ERFOL, IRON, FERR ####[facility]ORATORYCLIA [id number] [address] Iron saturation [Mass fraction] 19 % Normal 15-57 [facility] Comment on above: Order Comment: Speci men Type: BLOOD SPECIMENOrdering Facility: [facility] Address: [address] [place] [address] Performed By: #### S ERFOL, IRON, FERR ####[facility]ORATORYCLIA [id number] [address] Magnesium SerPl-mCncon 06-18 Magnesium [Mass/Vol] 2.5 mg/dL High 1.7-2.3 [facility] Comment on above: Order Comment: Speci men Type: BLOOD SPECIMENOrdering Facility: [facility] Address: [address] [place] [address] Performed By: #### 2 4321-2, 12956-0, 2777-1 ####[facility]ATORYCLIA [id number] [address] NURSING PROGon 06-18-2021 NURSING PROG Normal [facility] Phosphate SerPl-mCncon 06-18 Phosphate [Mass/Vol] 3.0 mg/dL Normal 2.7-4.8 [facility] Comment on above: Order Comment: Speci men Type: BLOOD SPECIMENOrdering Facility: [facility] Address: [address] [place] [address] Performed By: #### 2 4321-2, , 2777- ####[facility]ATORYCLIA [id number] [address] THERAPY NTon 06-18-2021 THERAPY NT Normal [facility] aPTT PPPon 06-18-2021 aPTT Coag (PPP) [Time] 43.0 s High 23.0-32.4 [facility] Comment on above: Order Comment: Speci men Type: BLOOD SPECIMENOrdering Facility: [facility] Address: [address] [place] [address] Performed By: #### 1 4979-9 ####[facility]ATORYCLIA [id number] [address] aPTT Coag (PPP) [Time] 60.6 s High 23.0-32.4 [facility] Comment on above: Order Comment: Speci men Type: BLOOD SPECIMENOrdering Facility: [facility] Address: [address] [place] [address] Performed By: #### 1 4979-9 ####[facility]ORATORYCLIA [id number] [place] [id number] [place] aPTT Coag (PPP) [Time] 46.4 s High 23.0-32.4 [facility] Comment on above: Order Comment: Speci men Type: BLOOD SPECIMENOrdering Facility: [facility] Address: [address] [place] [address] Performed By: #### 1 4979-9 ####[facility]ORATORYCLIA [id number] [place] [address] [place] Basic metabolic 2000 panelon 06-17-2021 Anion gap [Moles/Vol] 7 mmol/L Low 9-18 [facility] Comment on above: Order Comment: Speci men Type: BLOOD SPECIMENOrdering Facility: [facility] Address: [address] [place] [address] Performed By: #### 2 951-2, 51870-0, 2777-1, 11530-2 ####[facility]STERCLIA [id number] [place] [address] [place] Calcium [Mass/Vol] 8.1 mg/dL Low 8.5-10.2 [facility] Comment on above: Order Comment: Speci men Type: BLOOD SPECIMENOrdering Facility: [facility] Address: [address] [place] [address] Performed By: #### 2 951-2, 47527-1, 277-1, 24249-2 ####[facility]ORATORYCLIA [id number] [place] [address] [place] Chloride [Moles/Vol] 113 mmol/L High 97-105 [facility] Comment on above: Order Comment: Speci men Type: BLOOD SPECIMENOrdering Facility: [facility] Address: [address] [place] [address] Performed By: #### 2 951-2, , 2776-, 60289-3 ####[facility]ORATORYCLIA [id number] [place] [address] [place] CO2 [Moles/Vol] 25 mmol/L Normal 22-30 [facility] Comment on above: Order Comment: Shira feldman Type: BLOOD SPECIMENOrdering Facility: [facility] Address: [address] [place] [address] Performed By: #### 2 951-2, 31287-2, 2776-05, 01031-3 ####[facility]ATORYCLIA [id number] [place] [address] [place] Creatinine [Mass/Vol] 0.70 mg/dL Low 0.73-1.22 [facility] Comment on above: Order Comment: Shira feldman Type: BLOOD SPECIMENOrdering Facility: [facility] Address: [address] [place] [address] Performed By: #### 2 95-2, , 2776-05, 49958-3 ####[facility]ORATORYCLIA [id number] [place] [address] [place] GFR/1.73 sq M.predicted MDRD (S/P/Bld) [Vol rate/Area] mL/min/{1.73_m2} Normal [facility] Comment on above: Order Comment: Shira feldman Type: BLOOD SPECIMENOrdering Facility: [facility] Address: [address] [place] [address] Result Comment: >60e GFR (Estimated GFR) Units [...] actual GFR. Performed By: #### 2 951-2, 97032-9, 2776-05, 99307-6 ####[facility]ORATORYCLIA [id number] [place] [address] [place] Glucose [Mass/Vol] 122 mg/dL High 74-99 [facility] Comment on above: Order Comment: Speci francia Type: BLOOD SPECIMENOrdering Facility: [facility] Address: [address] [place] [address] Result Comment: The [place] [employer] (ADA) [...] Performed By: #### 2 951-2, , 2776-05, 46407-7 ####[facility]ORATORYCLIA [id number] [place] [address] [place] Potassium [Moles/Vol] 3.5 mmol/L Low 3.7-5.1 [facility] Comment on above: Order Comment: Shira francia Type: BLOOD SPECIMENOrdering Facility: [facility] Address: [address] [id number] Performed By: #### 2 951-2, 93103-1, 277-1, 87344-9 ####[facility]ORATORYCLIA [id number] [place] [address] [place] Urea nitrogen [Mass/Vol] 27 mg/dL High 9-24 [facility] Comment on above: Order Comment: Johni francia Type: BLOOD SPECIMENOrdering Facility: [facility] Address: [address] [place] [address] Performed By: #### 2 951-2, 12337-1, 2777-1, 62419-6 ####[facility]ORATORYCLIA [id number] [address] OF [facility] CASE MANAGEMon 06-17-2021 CASE MANAGEM Normal [facility] CBC panel Auto (Bld)on 06-17 Erythrocyte distribution width (RBC) [Ratio] 15.9 % High 11.5-15.0 [facility] Comment on above: Order Comment: Speci men Type: BLOOD SPECIMENOrdering Facility: [facility] Address: [address] [place] [address] Performed By: #### 5 8410-2 ####[facility]ORATORYCLIA [id number] [address] Hematocrit (Bld) [Volume fraction] 28.9 % Low 39.0-51.0 [facility] Comment on above: Order Comment: Speci men Type: BLOOD SPECIMENOrdering Facility: [facility] Address: [address] [place] [address] Performed By: #### 5 8410-2 ####[facility]ORATORYCLIA [id number] [address] Hemoglobin (Bld) [Mass/Vol] 8.8 g/dL Low 13.0-17.0 [facility] Comment on above: Order Comment: Speci men Type: BLOOD SPECIMENOrdering Facility: [facility] Address: [address] [place] [address] Performed By: #### 5 8410-2 ####[facility]ORATORYCLIA [id number] [address] STATES [facility] MCH (RBC) [Entitic mass] 28.4 pg Normal 26.0-34.0 [facility] Comment on above: Order Comment: Speci men Type: BLOOD SPECIMENOrdering Facility: [facility] Address: [address] [place] [address] Performed By: #### 5 8410-2 ####[facility]ORATORYCLIA [id number] [address] STATES [facility] MCHC (RBC) [Mass/Vol] 30.4 g/dL Low 30.5-36.0 [facility] Comment on above: Order Comment: Speci men Type: BLOOD SPECIMENOrdering Facility: [facility] Address: [address] [place] [address] Performed By: #### 5 8410-2 ####[facility]ORATORYCLIA [id number] [address] MCV (RBC) [Entitic vol] 93.2 fL Normal 80.0-100.0 [facility] Comment on above: Order Comment: Speci men Type: BLOOD SPECIMENOrdering Facility: [facility] Address: [address] [place] [address] Performed By: #### 5 8410-2 ####[facility]ATORYCLIA [id number] [address] Nucleated RBC (Bld) [#/Vol] 10*3/uL Normal <0.01 [facility] Comment on above: Order Comment: Speci men Type: BLOOD SPECIMENOrdering Facility: [facility] Address: [address] [place] [address] Performed By: #### 5 8410-2 ####[facility]ORATORYCLIA [id number] [address] [place] Platelet mean volume (Bld) [Entitic vol] 11.9 fL Normal 9.0-12.7 [facility] Comment on above: Order Comment: Speci men Type: BLOOD SPECIMENOrdering Facility: [facility] Address: [address] [place] [address] Performed By: #### 5 8410-2 ####[facility]ATORYCLIA [id number] [address] [place] Platelets (Bld) [#/Vol] 257 10*3/uL Normal 150-400 [facility] Comment on above: Order Comment: Speci men Type: BLOOD SPECIMENOrdering Facility: [facility] Address: [address] [place] [address] Performed By: #### 5 8410-2 ####[facility]ORATORYCLIA [id number] [address] OF [facility] RBC (Bld) [#/Vol] 3.10 10*6/uL Low 4.20-6.00 [facility] Comment on above: Order Comment: Speci men Type: BLOOD SPECIMENOrdering Facility: [facility] Address: [address] [place] [address] Performed By: #### 5 8410-2 ####[facility]ORATORYCLIA [id number] [address] STATES OF [facility] WBC (Bld) [#/Vol] 10.54 10*3/uL Normal 3.70-11.00 [facility] Comment on above: Order Comment: Speci men Type: BLOOD SPECIMENOrdering Facility: [facility] Address: [address] [place] [address] Performed By: #### 5 8410-2 ####[facility]ORATORYCLIA [id number] [address] [place] HEMOGLOBIN (HGB)on Hemoglobin (Bld) [Mass/Vol] 8.8 g/dL Low 13.0-17.0 [facility] Comment on above: Order Comment: Speci men Type: BLOOD SPECIMENOrdering Facility: [facility] Address: [address] [place] [address] Performed By: #### H GB ####[facility]ORATORYCLIA [id number] [address] Magnesium SerPl-mCncon 06-17 Magnesium [Mass/Vol] 2.5 mg/dL High 1.7-2.3 [facility] Comment on above: Order Comment: Speci men Type: BLOOD SPECIMENOrdering Facility: [facility] Address: [address] [place] [address] Performed By: #### 2 951-2, , 2776-05, 50926-9 ####[facility]ORATORYCLIA [id number] [address] [place] NURSING PROGon 06-17-2021 NURSING PROG Normal [facility] NURSING PROG Normal [facility] NURSING PROG Normal [facility] Phosphate SerPl-mCncon 06-17 Phosphate [Mass/Vol] 1.9 mg/dL Low 2.7-4.8 [facility] Comment on above: Order Comment: Speci men Type: BLOOD SPECIMENOrdering Facility: [facility] Address: [address] [place] [address] Performed By: #### 2 951-2, , 2776-05, 98161-0 ####[facility]ORATORYCLIA [id number] [address] STATES OF [facility] Sodium SerPl-sCncon 06-17-19 22 Sodium [Moles/Vol] 144 mmol/L Normal 136-144 [facility] Comment on above: Order Comment: Speci men Type: BLOOD SPECIMENOrdering Facility: [facility] Address: [address] [place] [address] Performed By: #### 2 951-2 ####[facility]ORATORYCLIA [id number] [address] [place] Sodium [Moles/Vol] 145 mmol/L High 136-144 [facility] Comment on above: Order Comment: Speci men Type: BLOOD SPECIMENOrdering Facility: [facility] Address: [address] [place] [address] Performed By: #### 2 951-2, , 2776-05, 80368-8 ####[facility]ORATORYCLIA [id number] [address] [place] aPTT PPPon 06-17-2021 aPTT Coag (PPP) [Time] 55.8 s High 23.0-32.4 [facility] Comment on above: Order Comment: Speci men Type: BLOOD SPECIMENOrdering Facility: [facility] Address: [address] [place] [address] Performed By: #### 1 4979-9 ####[facility]ORATORYCLIA [id number] [address] ARTERIAL BLOOD GASESon 06-16 Base excess Calc (Bld) [Moles/Vol] 3 mmol/L High 0-2 [facility] Comment on above: Order Comment: Speci men Type: ARTERIAL BLOOD SPECIMENOrdering Facility: [facility] Address: [address] [place] [address] Performed By: #### A LLBG ####[facility]ORATORYCLIA [id number] [address] Body temperature 99.14 [degF] Normal [facility] Comment on above: Order Comment: Speci men Type: ARTERIAL BLOOD SPECIMENOrdering Facility: [facility] Address: [address] [place] [address] Performed By: #### A LLBG ####[facility]ORATORYCLIA [id number] [address] CALCIUM IONIZED, PH CORRECTED 1.21 mmol/L Normal 1.08-1.30 [facility] Comment on above: Order Comment: Speci men Type: ARTERIAL BLOOD SPECIMENOrdering Facility: [facility] Address: [address] [place] [address] Performed By: #### A LLBG ####[facility]ORATORYCLIA [id number] [address] [place] Calcium.ionized (BldV) [Mass/Vol] 1.17 mmol/L Normal 1.08-1.30 [facility] Comment on above: Order Comment: Speci men Type: ARTERIAL BLOOD SPECIMENOrdering Facility: [facility] Address: [address] [place] [address] Performed By: #### A LLBG ####[facility]ORATORYCLIA [id number] [address] [place] Carboxyhemoglobin (BldA) [Mass fraction] 1.4 % Normal 0.0-2.0 [facility] Comment on above: Order Comment: Speci men Type: ARTERIAL BLOOD SPECIMENOrdering Facility: [facility] Address: [address] [place] [address] Result Comment: Carb oxyhemoglobin Reference Range for Smokers: 2.0-8.0% Performed By: #### A LLBG ####[facility]ATORYCLIA [id number] [address] [place] CO2 (Bld) [Partial pressure] 38 mm Hg Normal 36-46 [facility] Comment on above: Order Comment: Speci men Type: ARTERIAL BLOOD SPECIMENOrdering Facility: [facility] Address: [address] [place] [address] Performed By: #### A LLBG ####[facility]ORATORYCLIA [id number] [address] [place] CO2 [Moles/Vol] 24.5 mmol/L Normal 22-28 [facility] Comment on above: Order Comment: Speci men Type: ARTERIAL BLOOD SPECIMENOrdering Facility: [facility] Address: [address] [place] [address] Performed By: #### A LLBG ####[facility]ORATORYCLIA [id number] [address] [place] CO2 adjusted to patient's actual temperature (Bld) [Partial pressure] 38 mmHg Normal 36-46 [facility] Comment on above: Order Comment: Speci men Type: ARTERIAL BLOOD SPECIMENOrdering Facility: [facility] Address: [address] [place] [address] Performed By: #### A LLBG ####[facility]ATORYCLIA [id number] [address] [place] Glucose [Mass/Vol] 147 mg/dL High 60-105 [facility] Comment on above: Order Comment: Speci men Type: ARTERIAL BLOOD SPECIMENOrdering Facility: [facility] Address: [address] [place], [place] [id number] Performed By: #### A LLBG ####[facility]ORATORYCLIA [id number] [address] [place] HCO3 (Bld) [Moles/Vol] 27 mmol/L High 22-26 [facility] Comment on above: Order Comment: Speci men Type: ARTERIAL BLOOD SPECIMENOrdering Facility: [facility] Address: [address] [place] [address] Performed By: #### A LLBG ####[facility]ORATORYCLIA [id number] [address] [place] Hematocrit (Bld) [Volume fraction] 31.8 % Low 39.0-51.0 [facility] Comment on above: Order Comment: Speci men Type: ARTERIAL BLOOD SPECIMENOrdering Facility: [facility] Address: [address] [place] [address] Performed By: #### A LLBG ####[facility]ORATORYCLIA [id number] [address] [place] Hemoglobin (Bld) [Mass/Vol] 10.3 g/dL Low 13.0-17.0 [facility] Comment on above: Order Comment: Speci men Type: ARTERIAL BLOOD SPECIMENOrdering Facility: [facility] Address: [address] [place] [address] Performed By: #### A LLBG ####[facility]ORATORYCLIA [id number] [address] [place] Methemoglobin (Bld) [Mass fraction] 1.0 % Normal 0.0-1.5 [facility] Comment on above: Order Comment: Speci men Type: ARTERIAL BLOOD SPECIMENOrdering Facility: [facility] Address: [address] [place] [address] Performed By: #### A LLBG ####[facility]ORATORYCLIA [id number] [address] [place] O2 THERAPY Ventilator Normal [facility] Comment on above: Order Comment: Speci men Type: ARTERIAL BLOOD SPECIMENOrdering Facility: [facility] Address: [address] [place] [address] Performed By: #### A LLBG ####[facility]ATORYCLIA [id number] [address] Oxygen (Bld) [Partial pressure] 78 mm Hg Low 85-95 [facility] Comment on above: Order Comment: Speci men Type: ARTERIAL BLOOD SPECIMENOrdering Facility: [facility] Address: [address] [place] [address] Performed By: #### A LLBG ####[facility]ORATORYCLIA [id number] [address] Oxygen adjusted to patient's actual temperature (Bld) [Partial pressure] 79.7 mmHg Low 85-95 [facility] Comment on above: Order Comment: Speci men Type: ARTERIAL BLOOD SPECIMENOrdering Facility: [facility] Address: [address] [place] [address] Performed By: #### A LLBG ####[facility]ORATORYCLIA [id number] [address] [place] OXYGEN SATURATION, ARTERIAL 96 % Normal 95-98 [facility] Comment on above: Order Comment: Speci men Type: ARTERIAL BLOOD SPECIMENOrdering Facility: [facility] Address: [address] [place] [address] Performed By: #### A LLBG ####[facility]ORATORYCLIA [id number] [address] [place] Oxyhemoglobin (BldA) [Mass fraction] 94 % Low 95-98 [facility] Comment on above: Order Comment: Speci men Type: ARTERIAL BLOOD SPECIMENOrdering Facility: [facility] Address: [address] [place] [address] Performed By: #### A LLBG ####[facility]ATORYCLIA [id number] [address] [place] pH (Bld) 7.47 [pH] High 7.35-7.45 [facility] Comment on above: Order Comment: Speci men Type: ARTERIAL BLOOD SPECIMENOrdering Facility: [facility] Address: [address] [place] [address] Performed By: #### A LLBG ####[facility]ORATORYCLIA [id number] [address] pH adjusted to patient's actual temperature (Bld) 7.46 High 7.35-7.45 [facility] Comment on above: Order Comment: Speci men Type: ARTERIAL BLOOD SPECIMENOrdering Facility: [facility] Address: [address] [place] [address] Performed By: #### A LLBG ####[facility]ORATORYCLIA [id number] [address] [place] Potassium [Moles/Vol] 3.7 mmol/L Normal 3.5-5.0 [facility] Comment on above: Order Comment: Speci men Type: ARTERIAL BLOOD SPECIMENOrdering Facility: [facility] Address: [address] [place] [address] Performed By: #### A LLBG ####[facility]ORATORYCLIA [id number] [address] STATES [facility] Sodium [Moles/Vol] 155 mmol/L High 136-144 [facility] Comment on above: Order Comment: Speci men Type: ARTERIAL BLOOD SPECIMENOrdering Facility: [facility] Address: [address] [place] [address] Performed By: #### A LLBG ####[facility]ORATORYCLIA [id number] [place] [address] [place] Bacteria Spec Resp Culton Bacteria identified Respiratory culture Nom (Unsp spec) CULTURE, RESPIRATORY: Rare Normal respiratory chris present ORGANISM ID: 1 Few Yeast, not cryptococcus neoformans GRAM STAIN: No organisms seen Few Polymorphonuclear leukocytes Few Epithelial cells Abnormal [facility] Comment on above: Performed By: #### 3 2355-0 ####[facility] LABORATORYCLIA [id number] [address] [place] Basic metabolic 2000 panelon 06-16-2021 Anion gap [Moles/Vol] 9 mmol/L Normal 9-18 [facility] Comment on above: Order Comment: Speci men Type: BLOOD SPECIMENOrdering Facility: [facility] Address: [address] [place] [address] Performed By: #### 2 4321-2 ####[facility] LABORATORYCLIA [id number] [place] [address] [place] Calcium [Mass/Vol] 8.4 mg/dL Low 8.5-10.2 [facility] Comment on above: Order Comment: Speci men Type: BLOOD SPECIMENOrdering Facility: [facility] Address: [address] [place] [address] Performed By: #### 2 4321-2 ####[facility] LABORATORYCLIA [id number] [address] [place] Chloride [Moles/Vol] 120 mmol/L High 97-105 [facility] Comment on above: Order Comment: Speci men Type: BLOOD SPECIMENOrdering Facility: [facility] Address: [address] [place] [address] Performed By: #### 2 4321-2 ####[facility] LABORATORYCLIA [id number] [address] [place] CO2 [Moles/Vol] 27 mmol/L Normal 22-30 [facility] Comment on above: Order Comment: Speci men Type: BLOOD SPECIMENOrdering Facility: [facility] Address: [address] [place] [address] Performed By: #### 2 4321-2 ####[facility] LABORATORYCLIA [id number] [address] [place] Creatinine [Mass/Vol] 0.75 mg/dL Normal 0.73-1.22 [facility] Comment on above: Order Comment: Speci men Type: BLOOD SPECIMENOrdering Facility: [facility] Address: [address] [place] [address] Performed By: #### 2 4321-2 ####[facility] LABORATORYCLIA [id number] [place] [address] [place] GFR/1.73 sq M.predicted MDRD (S/P/Bld) [Vol rate/Area] mL/min/{1.73_m2} Normal [facility] Comment on above: Order Comment: Shira feldman Type: BLOOD SPECIMENOrdering Facility: [facility] Address: [address] [place], [place] [address] Result Comment: >60e GFR (Estimated GFR) Units [...] actual GFR. Performed By: #### 2 4321-2 ####[facility]ORATORYCLIA [id number] [place] [id number] [place] Glucose [Mass/Vol] 160 mg/dL High 74-99 [facility] Comment on above: Order Comment: Shira feldman Type: BLOOD SPECIMENOrdering Facility: [facility] Address: [address] [place], [place] [address] Result Comment: The [place] [employer] (ADA) [...] 2016.39(Suppl 1). Performed By: #### 2 4321-2 ####[facility]ORATORYCLIA [id number] [address] STATES OF [facility] Potassium [Moles/Vol] 3.1 mmol/L Low 3.7-5.1 [facility] Comment on above: Order Comment: Speci men Type: BLOOD SPECIMENOrdering Facility: [facility] Address: [address] [place] [address] Performed By: #### 2 4321-2 ####[facility]ORATORYCLIA [id number] [address] [place] Sodium [Moles/Vol] 156 mmol/L High 136-144 [facility] Comment on above: Order Comment: Speci men Type: BLOOD SPECIMENOrdering Facility: [facility] Address: [address] [place] [address] Performed By: #### 2 4321-2 ####[facility]ORATORYCLIA [id number] [address] STATES [facility] Urea nitrogen [Mass/Vol] 33 mg/dL High 9-24 [facility] Comment on above: Order Comment: Speci men Type: BLOOD SPECIMENOrdering Facility: [facility] Address: [address] [place] [address] Performed By: #### 2 4321-2 ####[facility]ORATORYCLIA [id number] [address] [place] CASE MANAGEMon 06-16-2021 CASE MANAGEM Normal [facility] CBC panel Auto (Bld)on 06-16 Erythrocyte distribution width (RBC) [Ratio] 15.9 % High 11.5-15.0 [facility] Comment on above: Order Comment: Speci men Type: BLOOD SPECIMENOrdering Facility: [facility] Address: [address] [place] [address] Performed By: #### 5 8410-2 ####[facility] LABORATORYCLIA [id number] [address] [place] Hematocrit (Bld) [Volume fraction] 34.6 % Low 39.0-51.0 [facility] Comment on above: Order Comment: Speci men Type: BLOOD SPECIMENOrdering Facility: [facility] Address: [address] [place] [address] Performed By: #### 5 8410-2 ####[facility]ORATORYCLIA [id number] [address] STATES [place] [facility] Hemoglobin (Bld) [Mass/Vol] 10.2 g/dL Low 13.0-17.0 [facility] Comment on above: Order Comment: Speci men Type: BLOOD SPECIMENOrdering Facility: [facility] Address: [address] [place] [address] Performed By: #### 5 8410-2 ####[facility]ORATORYCLIA [id number] [address] [place] MCH (RBC) [Entitic mass] 28.5 pg Normal 26.0-34.0 [facility] Comment on above: Order Comment: Speci men Type: BLOOD SPECIMENOrdering Facility: [facility] Address: [address] [place] [address] Performed By: #### 5 8410-2 ####[facility]ORATORYCLIA [id number] [address] [place] MCHC (RBC) [Mass/Vol] 29.5 g/dL Low 30.5-36.0 [facility] Comment on above: Order Comment: Speci men Type: BLOOD SPECIMENOrdering Facility: [facility] Address: [address] [place] [address] Performed By: #### 5 8410-2 ####[facility]ORATORYCLIA [id number] [address] STATES [facility] MCV (RBC) [Entitic vol] 96.6 fL Normal 80.0-100.0 [facility] Comment on above: Order Comment: Speci men Type: BLOOD SPECIMENOrdering Facility: [facility] Address: [address] [place] [address] Performed By: #### 5 8410-2 ####[facility]ORATORYCLIA [id number] [address] Nucleated RBC (Bld) [#/Vol] 10*3/uL Normal <0.01 [facility] Comment on above: Order Comment: Speci men Type: BLOOD SPECIMENOrdering Facility: [facility] Address: [address] [place] [address] Performed By: #### 5 8410-2 ####[facility]ORATORYCLIA [id number] [address] [place] Platelet mean volume (Bld) [Entitic vol] 11.9 fL Normal 9.0-12.7 [facility] Comment on above: Order Comment: Speci men Type: BLOOD SPECIMENOrdering Facility: [facility] Address: [address] [place] [address] Performed By: #### 5 8410-2 ####[facility]ORATORYCLIA [id number] [address] [place] Platelets (Bld) [#/Vol] 269 10*3/uL Normal 150-400 [facility] Comment on above: Order Comment: Speci men Type: BLOOD SPECIMENOrdering Facility: [facility] Address: [address] [place] [address] Performed By: #### 5 8410-2 ####[facility]ORATORYCLIA [id number] [address] [place] RBC (Bld) [#/Vol] 3.58 10*6/uL Low 4.20-6.00 [facility] Comment on above: Order Comment: Speci men Type: BLOOD SPECIMENOrdering Facility: [facility] Address: [address] [place] [address] Performed By: #### 5 8410-2 ####[facility]ATORYCLIA [id number] [address] [place] WBC (Bld) [#/Vol] 13.11 10*3/uL High 3.70-11.00 [facility] Comment on above: Order Comment: Speci men Type: BLOOD SPECIMENOrdering Facility: [facility] Address: [address] [place] [address] Performed By: #### 5 8410-2 ####[facility]ORATORYCLIA [id number] [address] [place] CONSULTon 06-16-2021 CONSULT Normal [...] Comment: Speci men Type: BLOOD SPECIMENOrdering Facility: [facility] Address: [address] [place] [address] Performed By: #### H GB ####[facility]ORATORYCLIA [id number] [address] Hemoglobin (Bld) [Mass/Vol] 9.6 g/dL Low 13.0-17.0 [facility] Comment on above: Order Comment: Speci men Type: BLOOD SPECIMENOrdering Facility: [facility] Address: [address] [place] [address] Performed By: #### H GB ####[facility]ORATORYCLIA [id number] [address] Magnesium SerPl-mCncon 06-16 Magnesium [Mass/Vol] 2.7 mg/dL High 1.7-2.3 [facility] Comment on above: Order Comment: Speci men Type: BLOOD SPECIMENOrdering Facility: [facility] Address: [address] [place] [address] Performed By: #### 1 9123-9 ####[facility]ORATORYCLIA [id number] [address] OF [facility] NURSING PROGon 06-16-2021 NURSING PROG Normal [facility] NUTRITIONon 06-16-2021 NUTRITION Normal [facility] Phosphate SerPl-mCncon 06-16 Phosphate [Mass/Vol] 1.4 mg/dL Low 2.7-4.8 [facility] Comment on above: Order Comment: Speci men Type: BLOOD SPECIMENOrdering Facility: [facility] Address: [address] [place] [address] Performed By: #### 2 777-1 ####[facility]ORATORYCLIA [id number] [address] [place] STAPH AUREUS PCRon S. aureus and MRSA panel MEGAN+probe (Nose) Normal Negative [facility] Comment on above: Order Comment: Speci men Type: SWAB OF INTERNAL NOSEOrdering Facility: [facility] Address: [address] [place] [address] Result Comment: Nega tive for Staphylococcus aureus by PCR.Negative for MRSA by PCR Performed By: #### S APCR ####[facility]ORATORYCLIA [id number] [place] [address] [place] Sodium SerPl-sCncon 06-16-19 22 Sodium [Moles/Vol] 150 mmol/L High 136-144 [facility] Comment on above: Order Comment: Speci men Type: BLOOD SPECIMENOrdering Facility: [facility] Address: [address] [place] [address] Performed By: #### 2 951-2 ####[facility]ORATORYCLIA [id number] [place] [address] [place] Sodium [Moles/Vol] 153 mmol/L High 136-144 [facility] Comment on above: Order Comment: Speci men Type: BLOOD SPECIMENOrdering Facility: [facility] Address: [address] [place] [address] Performed By: #### 2 951-2 ####[facility]ORATORYCLIA [id number] [address] Sodium [Moles/Vol] 158 mmol/L High 136-144 [facility] Comment on above: Order Comment: Speci men Type: BLOOD SPECIMENOrdering Facility: [facility] Address: [address] [place] [address] Performed By: #### 2 951-2 ####[facility]ORATORYCLIA [id number] [address] OF [facility] aPTT PPPon 06-16-2021 aPTT Coag (PPP) [Time] 61.8 s High 23.0-32.4 [facility] Comment on above: Order Comment: Speci men Type: BLOOD SPECIMENOrdering Facility: [facility] Address: [address] [place] [address] Performed By: #### 1 4979-9 ####[facility]ATORYCLIA [id number] [address] aPTT Coag (PPP) [Time] 57.6 s High 23.0-32.4 [facility] Comment on above: Order Comment: Speci men Type: BLOOD SPECIMENOrdering Facility: [facility] Address: [address] [place] [address] Performed By: #### 1 4979-9 ####[facility]ORATORYCLIA [id number] [address] [place] ALLIED HEALTHon 06-15-2021 [...] Speci men Type: ARTERIAL BLOOD SPECIMENOrdering Facility: [facility] Address: [address] [place] [address] Performed By: #### A LLBG ####[facility]ORATORYCLIA [id number] [address] Body temperature 99.5 [degF] Normal [facility] Comment on above: Order Comment: Speci men Type: ARTERIAL BLOOD SPECIMENOrdering Facility: [facility] Address: [address] [place] [address] Performed By: #### A LLBG ####[facility]ORATORYCLIA [id number] [address] STATES OF [facility] CALCIUM IONIZED, PH CORRECTED 1.34 mmol/L High 1.08-1.30 [facility] Comment on above: Order Comment: Speci men Type: ARTERIAL BLOOD SPECIMENOrdering Facility: [facility] Address: [address] [place] [address] Performed By: #### A LLBG ####[facility]ORATORYCLIA [id number] [address] Calcium.ionized (BldV) [Mass/Vol] 1.29 mmol/L Normal 1.08-1.30 [facility] Comment on above: Order Comment: Speci men Type: ARTERIAL BLOOD SPECIMENOrdering Facility: [facility] Address: [address] [place] [address] Performed By: #### A LLBG ####[facility]ORATORYCLIA [id number] [address] OF [facility] Carboxyhemoglobin (BldA) [Mass fraction] 1.3 % Normal 0.0-2.0 [facility] Comment on above: Order Comment: Speci men Type: ARTERIAL BLOOD SPECIMENOrdering Facility: [facility] Address: [address] [place] [address] Result Comment: Carb oxyhemoglobin Reference Range for Smokers: 2.0-8.0% Performed By: #### A LLBG ####[facility]ORATORYCLIA [id number] [address] CO2 (Bld) [Partial pressure] 37 mm Hg Normal 36-46 [facility] Comment on above: Order Comment: Speci men Type: ARTERIAL BLOOD SPECIMENOrdering Facility: [facility] Address: [address] [place] [address] Performed By: #### A LLBG ####[facility]ORATORYCLIA [id number] [address] [place] CO2 [Moles/Vol] 24.6 mmol/L Normal 22-28 [facility] Comment on above: Order Comment: Speci men Type: ARTERIAL BLOOD SPECIMENOrdering Facility: [facility] Address: [address] [place] [address] Performed By: #### A LLBG ####[facility]ORATORYCLIA [id number] [address] CO2 adjusted to patient's actual temperature (Bld) [Partial pressure] 38 mmHg Normal 36-46 [facility] Comment on above: Order Comment: Speci men Type: ARTERIAL BLOOD SPECIMENOrdering Facility: [facility] Address: [address] [place] [address] Performed By: #### A LLBG ####[facility]ORATORYCLIA [id number] [address] STATES [facility] FIO2 100 % Normal [facility] Comment on above: Order Comment: Speci men Type: ARTERIAL BLOOD SPECIMENOrdering Facility: [facility] Address: [address] [place] [address] Performed By: #### A LLBG ####[facility]ORATORYCLIA [id number] [address] [place] Glucose [Mass/Vol] 159 mg/dL High 60-105 [facility] Comment on above: Order Comment: Speci men Type: ARTERIAL BLOOD SPECIMENOrdering Facility: [facility] Address: [address] [place] [address] Performed By: #### A LLBG ####[facility]ORATORYCLIA [id number] [address] HCO3 (Bld) [Moles/Vol] 27 mmol/L High 22-26 [facility] Comment on above: Order Comment: Speci men Type: ARTERIAL BLOOD SPECIMENOrdering Facility: [facility] Address: [address] [place] [address] Performed By: #### A LLBG ####[facility]ORATORYCLIA [id number] [address] OF [facility] Hematocrit (Bld) [Volume fraction] 31.0 % Low 39.0-51.0 [facility] Comment on above: Order Comment: Speci men Type: ARTERIAL BLOOD SPECIMENOrdering Facility: [facility] Address: [address] [place] [address] Performed By: #### A LLBG ####[facility]ORATORYCLIA [id number] [address] [place] Hemoglobin (Bld) [Mass/Vol] 10.0 g/dL Low 13.0-17.0 [facility] Comment on above: Order Comment: Speci men Type: ARTERIAL BLOOD SPECIMENOrdering Facility: [facility] Address: [address] [place] [address] Performed By: #### A LLBG ####[facility]ORATORYCLIA [id number] [address] OF [facility] Methemoglobin (Bld) [Mass fraction] % Normal 0.0-1.5 [facility] Comment on above: Order Comment: Speci men Type: ARTERIAL BLOOD SPECIMENOrdering Facility: [facility] Address: [address] [place] [address] Performed By: #### A LLBG ####[facility]ORATORYCLIA [id number] [address] [place] O2 THERAPY Ventilator Normal [facility] Comment on above: Order Comment: Speci men Type: ARTERIAL BLOOD SPECIMENOrdering Facility: [facility] Address: [address] [place] [address] Performed By: #### A LLBG ####[facility]ORATORYCLIA [id number] [address] Oxygen (Bld) [Partial pressure] 279 mm Hg High 85-95 [facility] Comment on above: Order Comment: Speci men Type: ARTERIAL BLOOD SPECIMENOrdering Facility: [facility] Address: [address] [place] [address] Performed By: #### A LLBG ####[facility]ORATORYCLIA [id number] [address] Oxygen adjusted to patient's actual temperature (Bld) [Partial pressure] 281 mmHg High 85-95 [facility] Comment on above: Order Comment: Speci men Type: ARTERIAL BLOOD SPECIMENOrdering Facility: [facility] Address: [address] [place] [address] Performed By: #### A LLBG ####[facility]ORATORYCLIA [id number] [address] OXYGEN SATURATION, ARTERIAL 100 % High 95-98 [facility] Comment on above: Order Comment: Speci men Type: ARTERIAL BLOOD SPECIMENOrdering Facility: [facility] Address: [address] [place] [address] Performed By: #### A LLBG ####[facility]ORATORYCLIA [id number] [address] Oxyhemoglobin (BldA) [Mass fraction] 98 % Normal 95-98 [facility] Comment on above: Order Comment: Speci men Type: ARTERIAL BLOOD SPECIMENOrdering Facility: [facility] Address: [address] [place] [address] Performed By: #### A LLBG ####[facility]ORATORYCLIA [id number] [address] [place] pH (Bld) 7.47 [pH] High 7.35-7.45 [facility] Comment on above: Order Comment: Speci men Type: ARTERIAL BLOOD SPECIMENOrdering Facility: [facility] Address: [address] [place] [address] Performed By: #### A LLBG ####[facility]ORATORYCLIA [id number] [address] [place] pH adjusted to patient's actual temperature (Bld) 7.46 High 7.35-7.45 [facility] Comment on above: Order Comment: Speci men Type: ARTERIAL BLOOD SPECIMENOrdering Facility: [facility] Address: [address] [place] [address] Performed By: #### A LLBG ####[facility]ORATORYCLIA [id number] [address] [place] Potassium [Moles/Vol] 3.6 mmol/L Normal 3.5-5.0 [facility] Comment on above: Order Comment: Speci men Type: ARTERIAL BLOOD SPECIMENOrdering Facility: [facility] Address: [address] [place] [address] Performed By: #### A LLBG ####[facility]ORATORYCLIA [id number] [address] [place] Sodium [Moles/Vol] 162 mmol/L High 136-144 [facility] Comment on above: Order Comment: Speci men Type: ARTERIAL BLOOD SPECIMENOrdering Facility: [facility] Address: [address] [place] [address] Performed By: #### A LLBG ####[facility]ORATORYCLIA [id number] [address] [place] Base excess Calc (Bld) [Moles/Vol] 4 mmol/L High 0-2 [facility] Comment on above: Order Comment: Speci men Type: ARTERIAL BLOOD SPECIMENOrdering Facility: [facility] Address: [address] [place] [address] Performed By: #### A LLBG ####[facility]ORATORYCLIA [id number] [address] [place] Body temperature 100.58 [degF] Normal [facility] Comment on above: Order Comment: Speci men Type: ARTERIAL BLOOD SPECIMENOrdering Facility: [facility] Address: [address] [place] [address] Performed By: #### A LLBG ####[facility]ORATORYCLIA [id number] [address] [place] CALCIUM IONIZED, PH CORRECTED 1.34 mmol/L High 1.08-1.30 [facility] Comment on above: Order Comment: Speci men Type: ARTERIAL BLOOD SPECIMENOrdering Facility: [facility] Address: [address] [place] [address] Performed By: #### A LLBG ####[facility]ORATORYCLIA [id number] [place] [address] [place] Calcium.ionized (BldV) [Mass/Vol] 1.33 mmol/L High 1.08-1.30 [facility] Comment on above: Order Comment: Speci men Type: ARTERIAL BLOOD SPECIMENOrdering Facility: [facility] Address: [address] [place] [address] Performed By: #### A LLBG ####[facility]ORATORYCLIA [id number] [address] Carboxyhemoglobin (BldA) [Mass fraction] 1.5 % Normal 0.0-2.0 [facility] Comment on above: Order Comment: Speci men Type: ARTERIAL BLOOD SPECIMENOrdering Facility: [facility] Address: [address] [place] [address] Result Comment: Carb oxyhemoglobin Reference Range for Smokers: 2.0-8.0% Performed By: #### A LLBG ####[facility]ORATORYCLIA [id number] [address] [place] CO2 (Bld) [Partial pressure] 46 mm Hg Normal 36-46 [facility] Comment on above: Order Comment: Speci men Type: ARTERIAL BLOOD SPECIMENOrdering Facility: [facility] Address: [address] [place] [address] Performed By: #### A LLBG ####[facility]ORATORYCLIA [id number] [address] CO2 [Moles/Vol] 26.4 mmol/L Normal 22-28 [facility] Comment on above: Order Comment: Speci men Type: ARTERIAL BLOOD SPECIMENOrdering Facility: [facility] Address: [address] [place] [address] Performed By: #### A LLBG ####[facility]ORATORYCLIA [id number] [address] CO2 adjusted to patient's actual temperature (Bld) [Partial pressure] 48 mmHg High 36-46 [facility] Comment on above: Order Comment: Speci men Type: ARTERIAL BLOOD SPECIMENOrdering Facility: [facility] Address: [address] [place] [address] Performed By: #### A LLBG ####[facility]ORATORYCLIA [id number] [address] [place] FIO2 100 % Normal [facility] Comment on above: Order Comment: Speci men Type: ARTERIAL BLOOD SPECIMENOrdering Facility: [facility] Address: [address] [place] [address] Performed By: #### A LLBG ####[facility]ORATORYCLIA [id number] [address] [place] Glucose [Mass/Vol] 132 mg/dL High 60-105 [facility] Comment on above: Order Comment: Speci men Type: ARTERIAL BLOOD SPECIMENOrdering Facility: [facility] Address: [address] [place] [address] Performed By: #### A LLBG ####[facility] LABORATORYCLIA [id number] [address] [place] HCO3 (Bld) [Moles/Vol] 29 mmol/L High 22-26 [facility] Comment on above: Order Comment: Speci men Type: ARTERIAL BLOOD SPECIMENOrdering Facility: [facility] Address: [address] [place] [address] Performed By: #### A LLBG ####[facility] LABORATORYCLIA [id number] [address] Hematocrit (Bld) [Volume fraction] 32.3 % Low 39.0-51.0 [facility] Comment on above: Order Comment: Speci men Type: ARTERIAL BLOOD SPECIMENOrdering Facility: [facility] Address: [address] [address] Performed By: #### A LLBG ####[facility] LABORATORYCLIA [id number] [address] [place] Hemoglobin (Bld) [Mass/Vol] 10.4 g/dL Low 13.0-17.0 [facility] Comment on above: Order Comment: Speci men Type: ARTERIAL BLOOD SPECIMENOrdering Facility: [facility] Address: [address] [address] Performed By: #### A LLBG ####[facility] LABORATORYCLIA [id number] [address] [place] Methemoglobin (Bld) [Mass fraction] % Normal 0.0-1.5 [facility] Comment on above: Order Comment: Speci men Type: ARTERIAL BLOOD SPECIMENOrdering Facility: [facility] Address: [address] [place] [address] Performed By: #### A LLBG ####[facility] LABORATORYCLIA [id number] [address] O2 THERAPY NR=Non-Rebreather Mask Normal [facility] Comment on above: Order Comment: Speci men Type: ARTERIAL BLOOD SPECIMENOrdering Facility: [facility] Address: [address] [place] [address] Performed By: #### A LLBG ####[facility] LABORATORYCLIA [id number] [address] [place] Oxygen (Bld) [Partial pressure] 130 mm Hg High 85-95 [facility] Comment on above: Order Comment: Speci men Type: ARTERIAL BLOOD SPECIMENOrdering Facility: [facility] Address: [address] [address] Performed By: #### A LLBG ####[facility]ATORYCLIA [id number] [address] [place] Oxygen adjusted to patient's actual temperature (Bld) [Partial pressure] 136 mmHg High 85-95 [facility] Comment on above: Order Comment: Speci men Type: ARTERIAL BLOOD SPECIMENOrdering Facility: [facility] Address: [address] [place] [address] Performed By: #### A LLBG ####[facility]ORATORYCLIA [id number] [address] [place] OXYGEN SATURATION, ARTERIAL 99 % High 95-98 [facility] Comment on above: Order Comment: Speci men Type: ARTERIAL BLOOD SPECIMENOrdering Facility: [facility] Address: [address] [place] [address] Performed By: #### A LLBG ####[facility]ORATORYCLIA [id number] [address] Oxyhemoglobin (BldA) [Mass fraction] 97 % Normal 95-98 [facility] Comment on above: Order Comment: Speci men Type: ARTERIAL BLOOD SPECIMENOrdering Facility: [facility] Address: [address] [place] [address] Performed By: #### A LLBG ####[facility]ORATORYCLIA [id number] [address] [place] pH (Bld) 7.41 [pH] Normal 7.35-7.45 [facility] Comment on above: Order Comment: Speci men Type: ARTERIAL BLOOD SPECIMENOrdering Facility: [facility] Address: [address] [place] [address] Performed By: #### A LLBG ####[facility]ATORYCLIA [id number] [address] pH adjusted to patient's actual temperature (Bld) 7.40 Normal 7.35-7.45 [facility] Comment on above: Order Comment: Speci men Type: ARTERIAL BLOOD SPECIMENOrdering Facility: [facility] Address: [address] [place] [address] Performed By: #### A LLBG ####[facility]ORATORYCLIA [id number] [address] [place] Potassium [Moles/Vol] 3.8 mmol/L Normal 3.5-5.0 [facility] Comment on above: Order Comment: Speci men Type: ARTERIAL BLOOD SPECIMENOrdering Facility: [facility] Address: [address] [place] [address] Performed By: #### A LLBG ####[facility]ORATORYCLIA [id number] [address] STATES OF [facility] Sodium [Moles/Vol] 166 mmol/L High 136-144 [facility] Comment on above: Order Comment: Speci men Type: ARTERIAL BLOOD SPECIMENOrdering Facility: [facility] Address: [address] [place] [address] Performed By: #### A LLBG ####[facility]ORATORYCLIA [id number] [address] [place] Bacteria Bld Culton 06-15-19 22 Bacteria identified Cx Nom (Bld) CULTURE, BLOOD: No growth 5 days Normal [facility] Comment on above: Performed By: #### 6 00-7 ####[facility]ORATORYCLIA [id number] [address] [place] Basic metabolic 2000 panelon 06-15-2021 Anion gap [Moles/Vol] 9 mmol/L Normal 9-18 [facility] Comment on above: Order Comment: Speci men Type: BLOOD SPECIMEN Performed By: #### 2 4321-2, 2776-05, ####[facility]ATORYCLIA [id number] [address] [place] Calcium [Mass/Vol] 9.0 mg/dL Normal 8.5-10.2 [facility] Comment on above: Order Comment: Speci men Type: BLOOD SPECIMEN Performed By: #### 2 4321-2, 2776-, ####[facility]ATORYCLIA [id number] [address] [place] Chloride [Moles/Vol] 125 mmol/L High 97-105 [facility] Comment on above: Order Comment: Speci men Type: BLOOD SPECIMEN Performed By: #### 2 4321-2, 2776-05, ####[facility]ORATORYCLIA [id number] [place] [address] [place] CO2 [Moles/Vol] 29 mmol/L Normal 22-30 [facility] Comment on above: Order Comment: Speci men Type: BLOOD SPECIMEN Performed By: #### 2 4321-2, 2776-05, ####[facility]ATORYCLIA [id number] [place], [place] [id number] [place] [address] [place] Creatinine [Mass/Vol] 0.81 mg/dL Normal 0.73-1.22 [facility] Comment on above: Order Comment: Speci men Type: BLOOD SPECIMEN Performed By: #### 2 4321-2, 2776-05, ####[facility]ORATORYCLIA [id number] [address] [place] GFR/1.73 sq M.predicted [...] GFR. Performed By: #### 2 4321-2, 2776-05, ####[facility]ATORYCLIA [id number] [place] [address] [place] Glucose [Mass/Vol] 124 mg/dL [...] 1). Performed By: #### 2 4321-2, 2776-05, ####[facility]ATORYCLIA [id number] [address] [place] Potassium [Moles/Vol] 3.8 mmol/L Normal 3.7-5.1 [facility] Comment on above: Order Comment: Speci men Type: BLOOD SPECIMEN Performed By: #### 2 1-2, 2776-05, ####[facility]ATORYCLIA [id number] [address] STATES [facility] Sodium [Moles/Vol] 163 mmol/L High 136-144 [facility] Comment on above: Order Comment: Speci men Type: BLOOD SPECIMEN Performed By: #### 2 1-2, 2776-05, ####[facility]ATORYCLIA [id number] [address] [place] Urea nitrogen [Mass/Vol] 35 mg/dL High 9-24 [facility] Comment on above: Order Comment: Speci men Type: BLOOD SPECIMEN Performed By: #### 2 4321-2, 2776-05, ####[facility]ATORYCLIA [id number] [address] OF [facility] CBC panel Auto (Bld)on 06-15 Erythrocyte distribution width (RBC) [Ratio] 16.3 % High 11.5-15.0 [facility] Comment on above: Order Comment: Speci men Type: BLOOD SPECIMENOrdering Facility: [facility] Address: [address] [place] [address] Performed By: #### 5 8410-2 ####[facility]ATORYCLIA [id number] [address] Hematocrit (Bld) [Volume fraction] 30.0 % Low 39.0-51.0 [facility] Comment on above: Order Comment: Speci men Type: BLOOD SPECIMENOrdering Facility: [facility] Address: [address] [place] [address] Performed By: #### 5 8410-2 ####[facility]ATORYCLIA [id number] [address] Hemoglobin (Bld) [Mass/Vol] 8.9 g/dL Low 13.0-17.0 [facility] Comment on above: Order Comment: Speci men Type: BLOOD SPECIMENOrdering Facility: [facility] Address: [address] [place] [address] Performed By: #### 5 8410-2 ####[facility]ATORYCLIA [id number] [address] MCH (RBC) [Entitic mass] 28.7 pg Normal 26.0-34.0 [facility] Comment on above: Order Comment: Speci men Type: BLOOD SPECIMENOrdering Facility: [facility] Address: [address] [place] [address] Performed By: #### 5 8410-2 ####[facility]ATORYCLIA [id number] [address] [place] MCHC (RBC) [Mass/Vol] 29.7 g/dL Low 30.5-36.0 [facility] Comment on above: Order Comment: Speci men Type: BLOOD SPECIMENOrdering Facility: [facility] Address: [address] [place] [address] Performed By: #### 5 8410-2 ####[facility]ORATORYCLIA [id number] [address] MCV (RBC) [Entitic vol] 96.8 fL Normal 80.0-100.0 [facility] Comment on above: Order Comment: Speci men Type: BLOOD SPECIMENOrdering Facility: [facility] Address: [address] [place] [address] Performed By: #### 5 8410-2 ####[facility]ATORYCLIA [id number] [address] Nucleated RBC (Bld) [#/Vol] 10*3/uL Normal <0.01 [facility] Comment on above: Order Comment: Speci men Type: BLOOD SPECIMENOrdering Facility: [facility] Address: [address] [place] [address] Performed By: #### 5 8410-2 ####[facility]ORATORYCLIA [id number] [address] Platelet mean volume (Bld) [Entitic vol] 12.3 fL Normal 9.0-12.7 [facility] Comment on above: Order Comment: Speci men Type: BLOOD SPECIMENOrdering Facility: [facility] Address: [address] [place] [address] Performed By: #### 5 8410-2 ####[facility]ATORYCLIA [id number] [address] Platelets (Bld) [#/Vol] 226 10*3/uL Normal 150-400 [facility] Comment on above: Order Comment: Speci men Type: BLOOD SPECIMENOrdering Facility: [facility] Address: [address] [place] [address] Performed By: #### 5 8410-2 ####[facility]ATORYCLIA [id number] [address] RBC (Bld) [#/Vol] 3.10 10*6/uL Low 4.20-6.00 [facility] Comment on above: Order Comment: Speci men Type: BLOOD SPECIMENOrdering Facility: [facility] Address: [address] [place] [address] Performed By: #### 5 8410-2 ####[facility]ATORYCLIA [id number] [address] WBC (Bld) [#/Vol] 10.77 10*3/uL Normal 3.70-11.00 [facility] Comment on above: Order Comment: Speci men Type: BLOOD SPECIMENOrdering Facility: [facility] Address: [address] [place] [address] Performed By: #### 5 8410-2 ####[facility]ORATORYCLIA [id number] [address] STATES OF [facility] Erythrocyte distribution width (RBC) [Ratio] 16.2 % High 11.5-15.0 [facility] Comment on above: Order Comment: Speci men Type: BLOOD SPECIMENOrdering Facility: [facility] Address: [address] [place] [address] Performed By: #### 5 8410-2 ####[facility]ORATORYCLIA [id number] [address] OF [facility] Hematocrit (Bld) [Volume fraction] 34.8 % Low 39.0-51.0 [facility] Comment on above: Order Comment: Speci men Type: BLOOD SPECIMENOrdering Facility: [facility] Address: [address] [place] [address] Performed By: #### 5 8410-2 ####[facility]ATORYCLIA [id number] [address] [place] Hemoglobin (Bld) [Mass/Vol] 10.0 g/dL Low 13.0-17.0 [facility] Comment on above: Order Comment: Speci men Type: BLOOD SPECIMENOrdering Facility: [facility] Address: [address] [place] [address] Performed By: #### 5 8410-2 ####[facility]ORATORYCLIA [id number] [address] MCH (RBC) [Entitic mass] 27.5 pg Normal 26.0-34.0 [facility] Comment on above: Order Comment: Speci men Type: BLOOD SPECIMENOrdering Facility: [facility] Address: [address] [place] [address] Performed By: #### 5 8410-2 ####[facility]ATORYCLIA [id number] [address] MCHC (RBC) [Mass/Vol] 28.7 g/dL Low 30.5-36.0 [facility] Comment on above: Order Comment: Speci men Type: BLOOD SPECIMENOrdering Facility: [facility] Address: [address] [place] [address] Performed By: #### 5 8410-2 ####[facility]ORATORYCLIA [id number] [address] MCV (RBC) [Entitic vol] 95.6 fL Normal 80.0-100.0 [facility] Comment on above: Order Comment: Speci men Type: BLOOD SPECIMENOrdering Facility: [facility] Address: [address] [place] [address] Performed By: #### 5 8410-2 ####[facility]ORATORYCLIA [id number] [address] Nucleated RBC (Bld) [#/Vol] 10*3/uL Normal <0.01 [facility] Comment on above: Order Comment: Speci men Type: BLOOD SPECIMENOrdering Facility: [facility] Address: [address] [place] [address] Performed By: #### 5 8410-2 ####[facility]ORATORYCLIA [id number] [address] Platelet mean volume (Bld) [Entitic vol] 11.9 fL Normal 9.0-12.7 [facility] Comment on above: Order Comment: Speci men Type: BLOOD SPECIMENOrdering Facility: [facility] Address: [address] [place] [address] Performed By: #### 5 8410-2 ####[facility]ORATORYCLIA [id number] [address] Platelets (Bld) [#/Vol] 246 10*3/uL Normal 150-400 [facility] Comment on above: Order Comment: Speci men Type: BLOOD SPECIMENOrdering Facility: [facility] Address: [address] [place] [address] Performed By: #### 5 8410-2 ####[facility]ATORYCLIA [id number] [address] RBC (Bld) [#/Vol] 3.64 10*6/uL Low 4.20-6.00 [facility] Comment on above: Order Comment: Speci men Type: BLOOD SPECIMENOrdering Facility: [facility] Address: [address] [place] [address] Performed By: #### 5 8410-2 ####[facility]ORATORYCLIA [id number] [address] WBC (Bld) [#/Vol] 11.45 10*3/uL High 3.70-11.00 [facility] Comment on above: Order Comment: Speci men Type: BLOOD SPECIMENOrdering Facility: [facility] Address: [address] [place] [address] Performed By: #### 5 8410-2 ####[facility]ATORYCLIA [id number] [address] Erythrocyte distribution width (RBC) [Ratio] 15.9 % High 11.5-15.0 [facility] Comment on above: Order Comment: Speci men Type: BLOOD SPECIMEN Performed By: #### 5 8410-2 ####[facility]ATORYCLIA [id number] [address] Hematocrit (Bld) [Volume fraction] 35.8 % Low 39.0-51.0 [facility] Comment on above: Order Comment: Speci men Type: BLOOD SPECIMEN Performed By: #### 5 8410-2 ####[facility]ATORYCLIA [id number] [address] Hemoglobin (Bld) [Mass/Vol] 10.4 g/dL Low 13.0-17.0 [facility] Comment on above: Order Comment: Speci men Type: BLOOD SPECIMEN Performed By: #### 5 8410-2 ####[facility]ATORYCLIA [id number] [address] MCH (RBC) [Entitic mass] 28.0 pg Normal 26.0-34.0 [facility] Comment on above: Order Comment: Speci men Type: BLOOD SPECIMEN Performed By: #### 5 8410-2 ####[facility]ATORYCLIA [id number] [address] MCHC (RBC) [Mass/Vol] 29.1 g/dL Low 30.5-36.0 [facility] Comment on above: Order Comment: Speci men Type: BLOOD SPECIMEN Performed By: #### 5 8410-2 ####[facility]ATORYCLIA [id number] [address] MCV (RBC) [Entitic vol] 96.2 fL Normal 80.0-100.0 [facility] Comment on above: Order Comment: Speci men Type: BLOOD SPECIMEN Performed By: #### 5 8410-2 ####[facility]ATORYCLIA [id number] [address] Nucleated RBC (Bld) [#/Vol] 10*3/uL Normal <0.01 [facility] Comment on above: Order Comment: Speci men Type: BLOOD SPECIMEN Performed By: #### 5 8410-2 ####[facility]ATORYCLIA [id number] [address] Platelet mean volume (Bld) [Entitic vol] 11.6 fL Normal 9.0-12.7 [facility] Comment on above: Order Comment: Speci men Type: BLOOD SPECIMEN Performed By: #### 5 8410-2 ####[facility]ATORYCLIA [id number] [address] Platelets (Bld) [#/Vol] 265 10*3/uL Normal 150-400 [facility] Comment on above: Order Comment: Speci men Type: BLOOD SPECIMEN Performed By: #### 5 8410-2 ####[facility]ATORYCLIA [id number] [address] RBC (Bld) [#/Vol] 3.72 10*6/uL Low 4.20-6.00 [facility] Comment on above: Order Comment: Speci men Type: BLOOD SPECIMEN Performed By: #### 5 8410-2 ####[facility]ATORYCLIA [id number] [address] WBC (Bld) [#/Vol] 12.24 10*3/uL High 3.70-11.00 [facility] Comment on above: Order Comment: Speci men Type: BLOOD SPECIMEN Performed By: #### 5 8410-2 ####[facility]ORATORYCLIA [id number] [address] CONSULTon 06-15-2021 CONSULT Normal [facility] CONSULT Normal [facility] CONSULT Normal [facility] CT BRAIN WO IVCONon 06-15-[address] BRAIN WO IVCON Normal [facility] CT CHEST W IVCON PEon 2021 CT CHEST W IVCON PE Invalid Interpretation Code [facility] Chloride Unsp time (U) [Mole s/Vol]on 06-15-2021 Chloride (U) [Moles/Vol] 28 mmol/L Normal 16-250 [facility] Comment on above: Order Comment: Speci men Type: URINE SPECIMENOrdering Facility: [facility] Address: [address] [place] [address] Performed By: #### U TPR, 14106-7, 10068-7, 42021-4 ####[facility]ORATORYCLIA [id number] [address] [place] Comprehensive metabolic 2000 panelon 06-15-2021 Albumin [Mass/Vol] 2.8 g/dL Low 3.9-4.9 [facility] Comment on above: Order Comment: Speci men Type: BLOOD SPECIMENOrdering Facility: [facility] Address: [address] [place] [address] Performed By: #### 2 4323-8 ####[facility]ORATORYCLIA [id number] [address] [place] ALP [Catalytic activity/Vol] 74 U/L Normal 38-113 [facility] Comment on above: Order Comment: Speci men Type: BLOOD SPECIMENOrdering Facility: [facility] Address: [address] [place] [address] Performed By: #### 2 4323-8 ####[facility]ORATORYCLIA [id number] [address] ALT With P-5'-P [Catalytic activity/Vol] 50 U/L Normal 10-54 [facility] Comment on above: Order Comment: Speci men Type: BLOOD SPECIMENOrdering Facility: [facility] Address: [address] [place] [address] Performed By: #### 2 4323-8 ####[facility]ORATORYCLIA [id number] [address] Anion gap [Moles/Vol] 12 mmol/L Normal 9-18 [facility] Comment on above: Order Comment: Speci men Type: BLOOD SPECIMENOrdering Facility: [facility] Address: [address] [place] [address] Performed By: #### 2 4323-8 ####[facility]ORATORYCLIA [id number] [address] [place] AST With P-5'-P [Catalytic activity/Vol] 36 U/L Normal 14-40 [facility] Comment on above: Order Comment: Speci men Type: BLOOD SPECIMENOrdering Facility: [facility] Address: [address] [place] [address] Performed By: #### 2 4323-8 ####[facility]ORATORYCLIA [id number] [address] [place] Bilirubin [Mass/Vol] 0.5 mg/dL Normal 0.2-1.3 [facility] Comment on above: Order Comment: Speci men Type: BLOOD SPECIMENOrdering Facility: [facility] Address: [address] [place] [address] Performed By: #### 2 4323-8 ####[facility]ATORYCLIA [id number] [place] [address] [place] Calcium [Mass/Vol] 8.8 mg/dL Normal 8.5-10.2 [facility] Comment on above: Order Comment: Speci men Type: BLOOD SPECIMENOrdering Facility: [facility] Address: [address] [place] [address] Performed By: #### 2 4323-8 ####[facility]ORATORYCLIA [id number] [place] [address] [place] Chloride [Moles/Vol] 126 mmol/L High 97-105 [facility] Comment on above: Order Comment: Speci men Type: BLOOD SPECIMENOrdering Facility: [facility] Address: [address] [place] [address] Performed By: #### 2 4323-8 ####[facility]ORATORYCLIA [id number] [place] [address] [place] CO2 [Moles/Vol] 24 mmol/L Normal 22-30 [facility] Comment on above: Order Comment: Speci men Type: BLOOD SPECIMENOrdering Facility: [facility] Address: [address] [place] [address] Performed By: #### 2 4323-8 ####[facility]ORATORYCLIA [id number] [place] [address] [place] Creatinine [Mass/Vol] 0.84 mg/dL Normal 0.73-1.22 [facility] Comment on above: Order Comment: Shira feldman Type: BLOOD SPECIMENOrdering Facility: [facility] Address: [address] [id number] Performed By: #### 2 4323-8 ####[facility] LABORATORYCLIA [id number] [place] [address] [place] GFR/1.73 sq M.predicted MDRD (S/P/Bld) [Vol rate/Area] mL/min/{1.73_m2} Normal [facility] Comment on above: Order Comment: Shira feldman Type: BLOOD SPECIMENOrdering Facility: [facility] Address: [address] [id number] Result Comment: >60e GFR (Estimated GFR) Units [...] actual GFR. Performed By: #### 2 4323-8 ####[facility] LABORATORYCLIA [id number] [place] [address] [place] Glucose [Mass/Vol] 142 mg/dL High 74-99 [facility] Comment on above: Order Comment: Shira feldman Type: BLOOD SPECIMENOrdering Facility: [facility] Address: [address] [place] [address] Result Comment: The [place] [employer] (ADA) [...] 2016.39(Suppl 1). Performed By: #### 2 4323-8 ####[facility] LABORATORYCLIA [id number] [place] [address] [place] Potassium [Moles/Vol] 3.8 mmol/L Normal 3.7-5.1 [facility] Comment on above: Order Comment: Speci men Type: BLOOD SPECIMENOrdering Facility: [facility] Address: [address] [place] [address] Performed By: #### 2 4323-8 ####[facility] LABORATORYCLIA [id number] [place] [address] [place] Protein [Mass/Vol] 6.1 g/dL Low 6.3-8.0 [facility] Comment on above: Order Comment: Speci men Type: BLOOD SPECIMENOrdering Facility: [facility] Address: [address] [place] [address] Performed By: #### 2 4323-8 ####[facility] LABORATORYCLIA [id number] [place] [address] [place] Sodium [Moles/Vol] 162 mmol/L High 136-144 [facility] Comment on above: Order Comment: Speci men Type: BLOOD SPECIMENOrdering Facility: [facility] Address: [address] [place] [address] Performed By: #### 2 4323-8 ####[facility] LABORATORYCLIA [id number] [place] [address] [place] Urea nitrogen [Mass/Vol] 33 mg/dL High 9-24 [facility] Comment on above: Order Comment: Speci men Type: BLOOD SPECIMENOrdering Facility: [facility] Address: [address] [address] Performed By: #### 2 4323-8 ####[facility] LABORATORYCLIA [id number] [place] [address] [place] Creatinine Unsp time (U) [Ma ss/Vol]on 06-15-2021 Creatinine (U) [Mass/Vol] 87.0 mg/dL Normal 46.8-314.5 [facility] Comment on above: Order Comment: Speci men Type: URINE SPECIMENOrdering Facility: [facility] Address: [address] [place] [address] Performed By: #### U TPR, 44214-2, 41982-7, 52163-5 ####[facility] LABORATORYCLIA [id number] [address] [place] HIGH SENSITIVITY TROPONIN To n 06-15-2021 HIGH SENSITIVITY TAMIKO 23 ng/L High <12 [facility] Comment on above: Order Comment: Speci men Type: BLOOD SPECIMENOrdering Facility: [facility] Address: [address] [place] [address] Result Comment: When assessing risk for acute [...] day MACE. Performed By: #### P ROCAL, 45723-3, HSTNT ####[facility]UNSTERCLIA [id number] [place] [address] [place] Lactate (Bld) [Moles/Vol]on 06-15-2021 Lactate [Moles/Vol] 0.8 mmol/L Normal 0.5-2.2 [facility] Comment on above: Order Comment: Speci men Type: BLOOD SPECIMENOrdering Facility: [facility] Address: [address] [place] [address] Performed By: #### 3 2693-4 ####[facility] LABORATORYCLIA [id number] [place] [id number] [place] Magnesium SerPl-mCncon 06-15 Magnesium [Mass/Vol] 3.0 mg/dL High 1.7-2.3 [facility] Comment on above: Order Comment: Speci men Type: BLOOD SPECIMEN Performed By: #### 2 4321-2, 2777-1, 06251-1 ####[facility]ORATORYCLIA [id number] [address] [place] NT-proBNP SerPl-mCncon 06-15 Natriuretic peptide.B prohormone N-Terminal [Mass/Vol] 265 pg/mL High <125 [facility] Comment on above: Order Comment: Speci men Type: BLOOD SPECIMENOrdering Facility: [facility] Address: [address] [place] [address] Performed By: #### P JULIANNE, 21041-7, HSTNT ####[facility]ORATORYCLIA [id number] [address] Osmolality Uron 06-15-2021 Osmolality (U) [Osmolality] 606 mosm/kg Normal 50-1,200 [facility] Comment on above: Order Comment: Speci men Type: URINE SPECIMENOrdering Facility: [facility] Address: [address] [place] [address] Performed By: #### 2 695-5 ####[facility]ORATORYCLIA [id number] [address] PROCALCITONIN (LAB)on 2021 Procalcitonin [Mass/Vol] 0.21 ng/mL High <0.09 [facility] Comment on above: Order Comment: Speci men Type: BLOOD SPECIMENOrdering Facility: [facility] Address: [address] [place] [address] Result Comment: For a guided interpretation of test results, please visit the Change in Procalcitonin Calculator, [email or web address]. Performed By: #### P JULIANNE, 2951-2 ####[facility]ORATORYCLIA [id number] [address] [place] Procalcitonin [Mass/Vol] 0.17 ng/mL High <0.09 [facility] Comment on above: Order Comment: Shira francia Type: BLOOD SPECIMENOrdering Facility: [facility] Address: [address] [place] [address] Result Comment: For a guided interpretation of test results, please visit the Change in Procalcitonin Calculator, [email or web address]. Performed By: #### P ROCAL, 78901-2, HSTNT ####[facility]ORATORYCLIA [id number] [place] [address] [place] PROTEIN RANDOM URon 06-15-19 22 Protein (U) [Mass/Vol] 175 mg/dL High 0-20 [facility] Comment on above: Order Comment: Shira feldman Type: URINE SPECIMENOrdering Facility: [facility] Address: [address] [place] [address] Performed By: #### U TPR, 92323-7, 56099-5, 93176-4 ####[facility]ORATORYCLIA [id number] [place] [address] [place] PT panel Coag (PPP)on 2021 INR Coag (PPP) [Relative time] 1.1 {INR} Normal <1.4 [facility] Comment on above: Order Comment: Shira francia Type: BLOOD SPECIMENOrdering Facility: [facility] Address: [address] [place] [address] Result Comment: Yris min K Antagonist (VKA) [...] al. Chest 2012, 141:7S-47SNishimura RA, et al. [facility] 2017, 70: 252-289 Performed By: #### 3 4528-0, 88437-5 ####[facility] LABORATORYCLIA [id number] [place] [address] [place] PT Coag (PPP) [Time] 11.4 s Normal <13.1 [facility] Comment on above: Order Comment: Speci men Type: BLOOD SPECIMENOrdering Facility: [facility] Address: [address] [place] [address] Performed By: #### 3 4528-0, 10749-4 ####[facility]ORATORYCLIA [id number] [place] [address] [place] Phosphate SerPl-mCncon 06-15 Phosphate [Mass/Vol] 2.6 mg/dL Low 2.7-4.8 [facility] Comment on above: Order Comment: Speci men Type: BLOOD SPECIMEN Performed By: #### 2 4321-2, 2777-1, 73888-6 ####[facility]ATORYCLIA [id number] [place] [address] [place] Sodium ?Tm Ur-sCncon 022 Sodium Unsp time (U) [Moles/Vol] 34 mmol/L Normal 14-216 [facility] Comment on above: Order Comment: Speci men Type: URINE SPECIMENOrdering Facility: [facility] Address: [address] [place] [address] Performed By: #### U TPR, 96992-0, 08135-6, 11282-3 ####[facility]ORATORYCLIA [id number] [place] [address] [place] Sodium SerPl-sCncon 06-15-19 22 Sodium [Moles/Vol] 159 mmol/L High 136-144 [facility] Comment on above: Order Comment: Speci men Type: BLOOD SPECIMENOrdering Facility: [facility] Address: [address] [place] [address] Performed By: #### P JULIANNE 2951-2 ####[facility]ORATORYCLIA [id number] [address] THERAPY NTon 06-15-2021 THERAPY NT Normal [facility] Urinalysis complete panel (U )on 06-15-2021 Bacteria LM.HPF (Urine sed) [#/Area] None Seen Normal None Seen [facility] Comment on above: Order Comment: Speci men Type: URINE SPECIMENOrdering Facility: [facility] Address: [address] [place] [address] Performed By: #### 2 4356-8 ####[facility]STERCLIA [id number] [address] Bilirubin Ql (U) Negative Normal Negative [facility] Comment on above: Order Comment: Speci men Type: URINE SPECIMENOrdering Facility: [facility] Address: [address] [place] [address] Performed By: #### 2 4356-8 ####[facility]ITALIA [id number] [address] Clarity (Unsp spec) Cloudy Abnormal Clear [facility] Comment on above: Order Comment: Speci men Type: URINE SPECIMENOrdering Facility: [facility] Address: [address] [place] [address] Performed By: #### 2 4356-8 ####[facility]ORATORYCLIA [id number] [address] Color (U) Yellow Normal Yellow [facility] Comment on above: Order Comment: Speci men Type: URINE SPECIMENOrdering Facility: [facility] Address: [address] [place] [address] Performed By: #### 2 4356-8 ####[facility]ORATORYCLIA [id number] [place] [address] [place] Epithelial cells LM.HPF (Urine sed) [#/Area] 7.1 /[HPF] Normal [facility] Comment on above: Order Comment: Speci men Type: URINE SPECIMENOrdering Facility: [facility] Address: [address] [place] [address] Performed By: #### 2 4356-8 ####[facility]ORATORYCLIA [id number] [address] Glucose Test strip (U) [Mass/Vol] Negative Normal Negative [facility] Comment on above: Order Comment: Speci men Type: URINE SPECIMENOrdering Facility: [facility] Address: [address] [place] [address] Performed By: #### 2 4356-8 ####[facility]ORATORYCLIA [id number] [address] Granular casts (Urine sed) [#/Area] /[LPF] Abnormal 0 /LPF [facility] Comment on above: Order Comment: Speci men Type: URINE SPECIMENOrdering Facility: [facility] Address: [address] [place] [address] Performed By: #### 2 4356-8 ####[facility]ORATORYCLIA [id number] [address] Hemoglobin Ql (U) Moderate Abnormal Negative [facility] Comment on above: Order Comment: Speci men Type: URINE SPECIMENOrdering Facility: [facility] Address: [address] [place] [address] Performed By: #### 2 4356-8 ####[facility]ORATORYCLIA [id number] [address] Hyaline casts (Urine sed) [#/Area] /[LPF] Abnormal 0 /LPF [facility] Comment on above: Order Comment: Speci men Type: URINE SPECIMENOrdering Facility: [facility] Address: [address] [place] [address] Performed By: #### 2 4356-8 ####[facility]ORATORYCLIA [id number] [address] Ketones Ql (U) Negative Normal Negative [facility] Comment on above: Order Comment: Speci men Type: URINE SPECIMENOrdering Facility: [facility] Address: [address] [place] [address] Performed By: #### 2 4356-8 ####[facility]ORATORYCLIA [id number] [address] Leukocyte esterase Test strip Ql (U) Negative Normal Negative [facility] Comment on above: Order Comment: Speci men Type: URINE SPECIMENOrdering Facility: [facility] Address: [address] [place] [address] Performed By: #### 2 4356-8 ####[facility]ORATORYCLIA [id number] [address] STATES [facility] Nitrite Ql (U) Negative Normal Negative [facility] Comment on above: Order Comment: Speci men Type: URINE SPECIMENOrdering Facility: [facility] Address: [address] [place] [address] Performed By: #### 2 4356-8 ####[facility]ORATORYCLIA [id number] [address] [place] pH (U) 6.0 [pH] Normal 5.0-8.0 [facility] Comment on above: Order Comment: Speci men Type: URINE SPECIMENOrdering Facility: [facility] Address: [address] [place] [address] Performed By: #### 2 4356-8 ####[facility]ORATORYCLIA [id number] [address] STATES [facility] Protein (U) [Mass/Vol] 100 mg/dL Abnormal Negative [facility] Comment on above: Order Comment: Speci men Type: URINE SPECIMENOrdering Facility: [facility] Address: [address] [place] [address] Performed By: #### 2 4356-8 ####[facility]ORATORYCLIA [id number] [address] STATES [facility] RBC LM.HPF (Urine sed) [#/Area] 0-3 /HPF Normal 0-3 /HPF [facility] Comment on above: Order Comment: Speci men Type: URINE SPECIMENOrdering Facility: [facility] Address: [address] [place] [address] Performed By: #### 2 4356-8 ####[facility]ORATORYCLIA [id number] [address] Specific gravity (U) [Rel density] 1.024 Normal 1.005-1.030 [facility] Comment on above: Order Comment: Speci men Type: URINE SPECIMENOrdering Facility: [facility] Address: [address] [place] [address] Performed By: #### 2 4356-8 ####[facility]ORATORYCLIA [id number] [address] Urobilinogen Ql (U) 0.2 EU/dL Normal 0.2-1.0 EU/dL [facility] Comment on above: Order Comment: Speci men Type: URINE SPECIMENOrdering Facility: [facility] Address: [address] [place] [address] Performed By: #### 2 4356-8 ####[facility]ATORYCLIA [id number] [address] WBC LM.HPF (Urine sed) [#/Area] 0-5 /HPF Normal 0-5 /HPF [facility] Comment on above: Order Comment: Speci men Type: URINE SPECIMENOrdering Facility: [facility] Address: [address] [place] [address] Performed By: #### 2 4356-8 ####[facility]ORATORYCLIA [id number] [address] [place] XR CHEST 1V FRONTALon [...] Comment: Speci men Type: BLOOD SPECIMENOrdering Facility: [facility] Address: [address] [place] [address] Performed By: #### 3 4528-0, 53991-5 ####[facility]ORATORYCLIA [id number] [address] [place] Basic metabolic 2000 panelon 06-14-2021 Anion gap [Moles/Vol] 8 mmol/L Low 9-18 [facility] Comment on above: Order Comment: Speci men Type: BLOOD SPECIMEN Performed By: #### 2 4321-2, 7-1, ####[facility]ORATORYCLIA [id number] [place] [address] [place] Calcium [Mass/Vol] 8.9 mg/dL Normal 8.5-10.2 [facility] Comment on above: Order Comment: Speci men Type: BLOOD SPECIMEN Performed By: #### 2 4321-2, 2776-05, ####[facility]ORATORYCLIA [id number] [address] STATES OF [facility] Chloride [Moles/Vol] 121 mmol/L High 97-105 [facility] Comment on above: Order Comment: Speci men Type: BLOOD SPECIMEN Performed By: #### 2 4321-2, 2776-1, ####[facility]ORATORYCLIA [id number] [place] [address] [place] CO2 [Moles/Vol] 30 mmol/L Normal 22-30 [facility] Comment on above: Order Comment: Speci men Type: BLOOD SPECIMEN Performed By: #### 2 4321-2, 7-1, ####[facility]ORATORYCLIA [id number] [place], [place] [id number] [place] [address] [place] [facility] Creatinine [Mass/Vol] 0.78 mg/dL Normal 0.73-1.22 [facility] Comment on above: Order Comment: Speci [facility] Type: BLOOD SPECIMEN Performed By: #### 2 4321-2, 2777-, ####[facility]ORATORYCLIA [id number] [place] [id number] [place] GFR/1.73 sq M.predicted MDRD [...] GFR. Performed By: #### 2 4321-2, 7-, ####[facility]ORATORYCLIA [id number] [place] [address] [place] Glucose [Mass/Vol] 132 mg/dL [...] 1). Performed By: #### 2 4321-2, 2777-1, ####[facility]ORATORYCLIA [id number] [place], [place] [address] [place] [address] [place] [facility] Potassium [Moles/Vol] 3.7 mmol/L Normal 3.7-5.1 [facility] Comment on above: Order Comment: Speci men Type: BLOOD SPECIMEN Performed By: #### 2 4321-2, 2776-, ####[facility]ORATORYCLIA [id number] [place], [place] [address] [place] [address] [place] [facility] Sodium [Moles/Vol] 159 mmol/L High 136-144 [facility] Comment on above: Order Comment: Speci men Type: BLOOD SPECIMEN Performed By: #### 2 4321-2, 2776-, ####[facility]ORATORYCLIA [id number] [address] [place] [facility] Urea nitrogen [Mass/Vol] 35 mg/dL High 9-24 [facility] Comment on above: Order Comment: Speci men Type: BLOOD SPECIMEN Performed By: #### 2 4321-2, 2776-05, ####[facility]ORATORYCLIA [id number] [address] OF [facility] CASE MANAGEMon 06-14-2021 CASE MANAGEM Normal [facility] CBC panel Auto (Bld)on 06-14 Erythrocyte distribution width (RBC) [Ratio] 16.2 % High 11.5-15.0 [facility] Comment on above: Order Comment: Speci men Type: BLOOD SPECIMEN Performed By: #### 5 8410-2 ####[facility]ORATORYCLIA [id number] [address] Hematocrit (Bld) [Volume fraction] 35.2 % Low 39.0-51.0 [facility] Comment on above: Order Comment: Speci men Type: BLOOD SPECIMEN Performed By: #### 5 8410-2 ####[facility]ORATORYCLIA [id number] [address] Hemoglobin (Bld) [Mass/Vol] 10.1 g/dL Low 13.0-17.0 [facility] Comment on above: Order Comment: Speci men Type: BLOOD SPECIMEN Performed By: #### 5 8410-2 ####[facility]ORATORYCLIA [id number] [address] MCH (RBC) [Entitic mass] 27.2 pg Normal 26.0-34.0 [facility] Comment on above: Order Comment: Speci men Type: BLOOD SPECIMEN Performed By: #### 5 8410-2 ####[facility]ATORYCLIA [id number] [address] MCHC (RBC) [Mass/Vol] 28.7 g/dL Low 30.5-36.0 [facility] Comment on above: Order Comment: Speci men Type: BLOOD SPECIMEN Performed By: #### 5 8410-2 ####[facility]ORATORYCLIA [id number] [address] MCV (RBC) [Entitic vol] 94.6 fL Normal 80.0-100.0 [facility] Comment on above: Order Comment: Speci men Type: BLOOD SPECIMEN Performed By: #### 5 8410-2 ####[facility]ORATORYCLIA [id number] [address] Nucleated RBC (Bld) [#/Vol] 10*3/uL Normal <0.01 [facility] Comment on above: Order Comment: Speci men Type: BLOOD SPECIMEN Performed By: #### 5 8410-2 ####[facility]ORATORYCLIA [id number] [address] Platelet mean volume (Bld) [Entitic vol] 11.0 fL Normal 9.0-12.7 [facility] Comment on above: Order Comment: Speci men Type: BLOOD SPECIMEN Performed By: #### 5 8410-2 ####[facility]ORATORYCLIA [id number] [place] [address] [facility] Platelets (Bld) [#/Vol] 287 10*3/uL Normal 150-400 [facility] Comment on above: Order Comment: Speci men Type: BLOOD SPECIMEN Performed By: #### 5 8410-2 ####[facility]ORATORYCLIA [id number] [place] [address] [facility] RBC (Bld) [#/Vol] 3.72 10*6/uL Low 4.20-6.00 [facility] Comment on above: Order Comment: Speci men Type: BLOOD SPECIMEN Performed By: #### 5 8410-2 ####[facility]ORATORYCLIA [id number] [address] WBC (Bld) [#/Vol] 12.23 10*3/uL High 3.70-11.00 [facility] Comment on above: Order Comment: Speci men Type: BLOOD SPECIMEN Performed By: #### 5 8410-2 ####[facility]ORATORYCLIA [id number] [address] Comprehensive metabolic 2000 panelon 06-14-2021 Albumin [Mass/Vol] 3.1 g/dL Low 3.9-4.9 [facility] Comment on above: Order Comment: Speci men Type: BLOOD SPECIMEN Performed By: #### 2 4323-8, HSTNT, 2776-05, ####[facility]ATORYCLIA [id number] [address] ALP [Catalytic activity/Vol] 72 U/L Normal 38-113 [facility] Comment on above: Order Comment: Speci men Type: BLOOD SPECIMEN Performed By: #### 2 4323-8, HSTNT, 2776-05, ####[facility]ATORYCLIA [id number] [address] ALT With P-5'-P [Catalytic activity/Vol] 57 U/L High 10-54 [facility] Comment on above: Order Comment: Speci men Type: BLOOD SPECIMEN Performed By: #### 2 4323-8, HSTNT, 2776-05, ####[facility]ORATORYCLIA [id number] [place], [place] [address] [place] [address] [place] [facility] Anion gap [Moles/Vol] 9 mmol/L Normal 9-18 [facility] Comment on above: Order Comment: Speci men Type: BLOOD SPECIMEN Performed By: #### 2 4323-8, HSTNT, 2776-05, ####[facility]ORATORYCLIA [id number] [address] AST With P-5'-P [Catalytic activity/Vol] 33 U/L Normal 14-40 [facility] Comment on above: Order Comment: Speci men Type: BLOOD SPECIMEN Performed By: #### 2 4323-8, HSTNT, 2776-05, ####[facility]ORATORYCLIA [id number] [address] STATES [place] [facility] Bilirubin [Mass/Vol] 0.5 mg/dL Normal 0.2-1.3 [facility] Comment on above: Order Comment: Speci men Type: BLOOD SPECIMEN Performed By: #### 2 4323-8, HSTNT, 2776-05, ####[facility]ATORYCLIA [id number] [address] STATES [place] [facility] Calcium [Mass/Vol] 8.8 mg/dL Normal 8.5-10.2 [facility] Comment on above: Order Comment: Speci men Type: BLOOD SPECIMEN Performed By: #### 2 4323-8, HSTNT, 2776-05, ####[facility]ATORYCLIA [id number] [address] [place] Chloride [Moles/Vol] 124 mmol/L High 97-105 [facility] Comment on above: Order Comment: Speci men Type: BLOOD SPECIMEN Performed By: #### 2 4323-8, HSTNT, 2776-05, ####[facility]ORATORYCLIA [id number] [place], [place] [id number] [place] [address] [place] [facility] CO2 [Moles/Vol] 29 mmol/L Normal 22-30 [facility] Comment on above: Order Comment: Speci men Type: BLOOD SPECIMEN Performed By: #### 2 4323-8, HSTNT, 2776-05, ####[facility]ATORYCLIA [id number] [place], [place] [address] [place] [address] [place] Creatinine [Mass/Vol] 0.73 mg/dL Normal 0.73-1.22 [facility] Comment on above: Order Comment: Speci men Type: BLOOD SPECIMEN Performed By: #### 2 4323-8, HSTNT, 2776-05, ####[facility]ORATORYCLIA [id number] [place] [address] [place] GFR/1.73 sq M.predicted [...] Performed By: #### 2 4323-8, HSTNT, 2776-05, ####[facility]ORATORYCLIA [id number] [place], [place] [address] [place] [address] [place] Glucose [Mass/Vol] 137 mg/dL [...] 1). Performed By: #### 2 4323-8, HSTNT, ####[facility]ORATORYCLIA [id number] [place] [address] [place] Potassium [Moles/Vol] 3.6 mmol/L Low 3.7-5.1 [facility] Comment on above: Order Comment: Speci men Type: BLOOD SPECIMEN Performed By: #### 2 4323-8, HSTNT, ####[facility] LABORATORYCLIA [id number] [address] STATES OF [facility] Protein [Mass/Vol] 5.9 g/dL Low 6.3-8.0 [facility] Comment on above: Order Comment: Speci men Type: BLOOD SPECIMEN Performed By: #### 2 4323-8, HSTNT, ####[facility]ORATORYCLIA [id number] [address] [place] Sodium [Moles/Vol] 162 mmol/L High 136-144 [facility] Comment on above: Order Comment: Speci men Type: BLOOD SPECIMEN Performed By: #### 2 4323-8, HSTNT, ####[facility]ATORYCLIA [id number] [address] [place] Urea nitrogen [Mass/Vol] 33 mg/dL High 9-24 [facility] Comment on above: Order Comment: Speci men Type: BLOOD SPECIMEN Performed By: #### 2 4323-8, HSTNT, ####[facility]ORATORYCLIA [id number] [address] [place] HIGH SENSITIVITY TROPONIN To n 06-14-2021 HIGH SENSITIVITY TAMIKO 22 ng/L High <12 [facility] Comment on above: Order [...] day MACE. Performed By: #### H STNT ####[facility]ORATORYCLIA [id number] [address] STATES [facility] HIGH SENSITIVITY TAMIKO 22 ng/L High <12 [facility] Comment on above: Order [...] MACE. Performed By: #### 2 4323-8, HSTNT, ####[facility] LABORATORYCLIA [id number] [address] [place] Magnesium SerPl-mCncon 06-14 Magnesium [Mass/Vol] 2.9 mg/dL High 1.7-2.3 [facility] Comment on above: Order Comment: Speci men Type: BLOOD SPECIMEN Performed By: #### 2 4323-8, HSTNT, ####[facility]ORATORYCLIA [id number] [place] [address] [place] [facility] Magnesium [Mass/Vol] 3.0 mg/dL High 1.7-2.3 [facility] Comment on above: Order Comment: Speci men Type: BLOOD SPECIMEN Performed By: #### 2 4321-2, 2776-05, ####[facility]ORATORYCLIA [id number] [place] [address] [place] NURSING PROGon 06-14-2021 NURSING PROG Normal [facility] NUTRITIONon 06-14-2021 NUTRITION Normal [facility] Phosphate SerPl-mCncon 06-14 Phosphate [Mass/Vol] 2.4 mg/dL Low 2.7-4.8 [facility] Comment on above: Order Comment: Speci men Type: BLOOD SPECIMEN Performed By: #### 2 4323-8, HSTNT, 2776-05, ####[facility]ORATORYCLIA [id number] [address] OF [facility] Phosphate [Mass/Vol] 3.2 mg/dL Normal 2.7-4.8 [facility] Comment on above: Order Comment: Speci men Type: BLOOD SPECIMEN Performed By: #### 2 4321-2, 2776-05, ####[facility]ORATORYCLIA [id number] [place] [address] [facility] THERAPY NTon 06-14-2021 THERAPY NT Normal [facility] [...] BLOOD SPECIMEN Performed By: #### 2 4321-2, 24661-3, 2776-05 ####[facility]ORYCLIA [id number] [address] [place] [facility] Calcium [Mass/Vol] 8.8 mg/dL Normal 8.5-10.2 [facility] Comment on above: Order Comment: Speci men Type: BLOOD SPECIMEN Performed By: #### 2 4321-2, , 2776-05 ####[facility]ORATORYCLIA [id number] [address] Chloride [Moles/Vol] 120 mmol/L High 97-105 [facility] Comment on above: Order Comment: Speci men Type: BLOOD SPECIMEN Performed By: #### 2 4321-2, , 2776-05 ####[facility]ORATORYCLIA [id number] [address] CO2 [Moles/Vol] 28 mmol/L Normal 22-30 [facility] Comment on above: Order Comment: Speci men Type: BLOOD SPECIMEN Performed By: #### 2 4321-2, , 2776-05 ####[facility]ORATORYCLIA [id number] [address] [place] [facility] Creatinine [Mass/Vol] 0.78 mg/dL Normal 0.73-1.22 [facility] Comment on above: Order Comment: Speci men Type: BLOOD SPECIMEN Performed By: #### 2 4321-2, , 2776-05 ####[facility]ORATORYCLIA [id number] [address] [place] GFR/1.73 sq M.predicted [...] Performed By: #### 2 1-2, , 2776-05 ####[facility]ORATORYCLIA [id number] [place] [address] [place] Glucose [Mass/Vol] 126 [...] Performed By: #### 2 4320-2, , 2776-05 ####[facility]ORATORYCLIA [id number] [place] [address] [place] Potassium [Moles/Vol] 3.6 mmol/L Low 3.7-5.1 [facility] Comment on above: Order Comment: Speci men Type: BLOOD SPECIMEN Performed By: #### 2 1-2, , 2776-05 ####[facility]ORATORYCLIA [id number] [place] [address] [place] Sodium [Moles/Vol] 155 mmol/L High 136-144 [facility] Comment on above: Order Comment: Speci men Type: BLOOD SPECIMEN Performed By: #### 2 1-2, , 2776-05 ####[facility]ATORYCLIA [id number] [place] [address] [place] Urea nitrogen [Mass/Vol] 36 mg/dL High 9-24 [facility] Comment on above: Order Comment: Speci men Type: BLOOD SPECIMEN Performed By: #### 2 4321-2, , 2776-05 ####[facility]ATORYCLIA [id number] [place] [address] [place] Anion gap [Moles/Vol] 6 mmol/L Low 9-18 [facility] Comment on above: Order Comment: Speci men Type: BLOOD SPECIMEN Performed By: #### 2 4321-2, 2776-05, ####[facility]ORYCLIA [id number] [place], [place] [address] [place] [address] [place] Calcium [Mass/Vol] 6.5 mg/dL Low 8.5-10.2 [facility] Comment on above: Order Comment: Speci men Type: BLOOD SPECIMEN Performed By: #### 2 4321-2, 2776-05, ####[facility]ATORYCLIA [id number] [place] [address] [place] Chloride [Moles/Vol] 124 mmol/L High 97-105 [facility] Comment on above: Order Comment: Speci men Type: BLOOD SPECIMEN Performed By: #### 2 4321-2, 2776-05, ####[facility]ORYCLIA [id number] [place] [address] [place] CO2 [Moles/Vol] 24 mmol/L Normal 22-30 [facility] Comment on above: Order Comment: Speci men Type: BLOOD SPECIMEN Performed By: #### 2 4321-2, 2776-05, ####[facility]ORYCLIA [id number] [place] [address] [place] Creatinine [Mass/Vol] 0.61 mg/dL Low 0.73-1.22 [facility] Comment on above: Order Comment: Speci men Type: BLOOD SPECIMEN Performed By: #### 2 4321-2, 2777-, ####[facility]ATORYCLIA [id number] [place] [address] [place] GFR/1.73 sq M.predicted [...] GFR. Performed By: #### 2 4321-2, 2777-, ####[facility]ITALIA [id number] [place] [address] [place] Glucose [Mass/Vol] 100 [...] 1). Performed By: #### 2 4321-2, 2777-, 84979-4 ####[facility]ATORYCLIA [id number] [place] [address] [place] [facility] Potassium [Moles/Vol] 2.7 mmol/L Low 3.7-5.1 [facility] Comment on above: Order Comment: Speci men Type: BLOOD SPECIMEN Performed By: #### 2 4321-2, 7-1, ####[facility]ORATORYCLIA [id number] [place] [address] [place] Sodium [Moles/Vol] 154 mmol/L High 136-144 [facility] Comment on above: Order Comment: Speci men Type: BLOOD SPECIMEN Performed By: #### 2 4321-2, 2776-05, ####[facility]ORATORYCLIA [id number] [place] [address] [place] [facility] Urea nitrogen [Mass/Vol] 29 mg/dL High 9-24 [facility] Comment on above: Order Comment: Speci men Type: BLOOD SPECIMEN Performed By: #### 2 4321-2, 2776-05, ####[facility]ORATORYCLIA [id number] [address] OF [facility] CASE MANAGEMon 06-13-2021 CASE MANAGEM Normal [facility] CBC panel Auto (Bld)on 06-13 Erythrocyte distribution width (RBC) [Ratio] 15.9 % High 11.5-15.0 [facility] Comment on above: Order Comment: Speci men Type: BLOOD SPECIMEN Performed By: #### 5 8410-2 ####[facility]ORATORYCLIA [id number] [place] [address] [place] Hematocrit (Bld) [Volume fraction] 34.3 % Low 39.0-51.0 [facility] Comment on above: Order Comment: Speci men Type: BLOOD SPECIMEN Performed By: #### 5 8410-2 ####[facility]ORATORYCLIA [id number] [place] [address] [place] Hemoglobin (Bld) [Mass/Vol] 9.9 g/dL Low 13.0-17.0 [facility] Comment on above: Order Comment: Speci men Type: BLOOD SPECIMEN Performed By: #### 5 8410-2 ####[facility]ORATORYCLIA [id number] [address] MCH (RBC) [Entitic mass] 27.3 pg Normal 26.0-34.0 [facility] Comment on above: Order Comment: Speci men Type: BLOOD SPECIMEN Performed By: #### 5 8410-2 ####[facility]ORATORYCLIA [id number] [address] MCHC (RBC) [Mass/Vol] 28.9 g/dL Low 30.5-36.0 [facility] Comment on above: Order Comment: Speci men Type: BLOOD SPECIMEN Performed By: #### 5 8410-2 ####[facility]ORATORYCLIA [id number] [address] MCV (RBC) [Entitic vol] 94.5 fL Normal 80.0-100.0 [facility] Comment on above: Order Comment: Speci men Type: BLOOD SPECIMEN Performed By: #### 5 8410-2 ####[facility]ORATORYCLIA [id number] [address] Nucleated RBC (Bld) [#/Vol] 10*3/uL Normal <0.01 [facility] Comment on above: Order Comment: Speci men Type: BLOOD SPECIMEN Performed By: #### 5 8410-2 ####[facility]ORATORYCLIA [id number] [address] Platelet mean volume (Bld) [Entitic vol] 11.3 fL Normal 9.0-12.7 [facility] Comment on above: Order Comment: Speci men Type: BLOOD SPECIMEN Performed By: #### 5 8410-2 ####[facility]ATORYCLIA [id number] [address] Platelets (Bld) [#/Vol] 269 10*3/uL Normal 150-400 [facility] Comment on above: Order Comment: Speci men Type: BLOOD SPECIMEN Performed By: #### 5 8410-2 ####[facility]ATORYCLIA [id number] [address] RBC (Bld) [#/Vol] 3.63 10*6/uL Low 4.20-6.00 [facility] Comment on above: Order Comment: Speci men Type: BLOOD SPECIMEN Performed By: #### 5 8410-2 ####[facility]ATORYCLIA [id number] [address] WBC (Bld) [#/Vol] 12.77 10*3/uL High 3.70-11.00 [facility] Comment on above: Order Comment: Speci men Type: BLOOD SPECIMEN Performed By: #### 5 8410-2 ####[facility]ORATORYCLIA [id number] [address] Gas and Carbon monoxide pane l (BldV)on 06-13-2021 Base excess Calc (BldV) [Moles/Vol] 5.7 mmol/L High 0-2 [facility] Comment on above: Order Comment: Speci men Type: VENOUS BLOOD SPECIMEN Performed By: #### 2 4344-4 ####[facility]ORATORYCLIA [id number] [address] Body temperature 99.5 [degF] Normal [facility] Comment on above: Order Comment: Speci men Type: VENOUS BLOOD SPECIMEN Performed By: #### 2 4344-4 ####[facility]ORATORYCLIA [id number] [address] CALCIUM IONIZED, PH CORRECTED 1.24 mmol/L Normal 1.08-1.30 [facility] Comment on above: Order Comment: Speci men Type: VENOUS BLOOD SPECIMEN Performed By: #### 2 4344-4 ####[facility]ATORYCLIA [id number] [address] Calcium.ionized (BldV) [Mass/Vol] 1.23 mmol/L Normal 1.08-1.30 [facility] Comment on above: Order Comment: Speci men Type: VENOUS BLOOD SPECIMEN Performed By: #### 2 4344-4 ####[facility]ORATORYCLIA [id number] [address] OF [facility] Carboxyhemoglobin (BldV) [Mass fraction] 1.2 % Normal 0.0-2.0 [facility] Comment on above: Order Comment: Speci men Type: VENOUS BLOOD SPECIMEN Result Comment: Carb oxyhemoglobin Reference Range for Smokers: 2.0-8.0% Performed By: #### 2 4344-4 ####[facility]ATORYCLIA [id number] [address] CO2 (BldV) [Partial pressure] 48 mm[Hg] Normal 42-55 [facility] Comment on above: Order Comment: Speci men Type: VENOUS BLOOD SPECIMEN Performed By: #### 2 4344-4 ####[facility]ATORYCLIA [id number] [address] CO2 [Moles/Vol] 28.2 mmol/L Normal 25-29 [facility] Comment on above: Order Comment: Speci men Type: VENOUS BLOOD SPECIMEN Performed By: #### 2 4344-4 ####[facility]ATORYCLIA [id number] [address] CO2 adjusted to patient's actual temperature (BldV) [Partial pressure] 49 mmHg Normal 42-55 [facility] Comment on above: Order Comment: Speci men Type: VENOUS BLOOD SPECIMEN Performed By: #### 2 4344-4 ####[facility]ORYCLIA [id number] [address] Glucose [Mass/Vol] 131 mg/dL High 60-105 [facility] Comment on above: Order Comment: Speci men Type: VENOUS BLOOD SPECIMEN Performed By: #### 2 4344-4 ####[facility]ORYCLIA [id number] [address] STATES [facility] HCO3 (Bld) [Moles/Vol] 30.6 mmol/L High 24-[address] [facility] Comment on above: Order Comment: Speci men Type: VENOUS BLOOD SPECIMEN Performed By: #### 2 4344-4 ####[facility]ORYCLIA [id number] [address] Hematocrit (Bld) [Volume fraction] 32.8 % Low 39.0-51.0 [facility] Comment on above: Order Comment: Speci men Type: VENOUS BLOOD SPECIMEN Performed By: #### 2 4344-4 ####[facility]ORYCLIA [id number] [address] Hemoglobin (Bld) [Mass/Vol] 10.6 g/dL Low 13.0-17.0 [facility] Comment on above: Order Comment: Speci men Type: VENOUS BLOOD SPECIMEN Performed By: #### 2 4344-4 ####[facility]ORYCLIA [id number] [address] LITERS 6 Liters/min Normal [facility] Comment on above: Order Comment: Speci men Type: VENOUS BLOOD SPECIMEN Performed By: #### 2 4344-4 ####[facility]ORYCLIA [id number] [address] Methemoglobin (Bld) [Mass fraction] 1.0 % Normal 0.0-1.5 [facility] Comment on above: Order Comment: Speci men Type: VENOUS BLOOD SPECIMEN Performed By: #### 2 4344-4 ####[facility]ORYCLIA [id number] [address] O2 THERAPY NC = Nasal Cannula Normal [facility] Comment on above: Order Comment: Speci men Type: VENOUS BLOOD SPECIMEN Performed By: #### 2 4344-4 ####[facility]ORYCLIA [id number] [address] [place] Oxygen (BldV) [Partial pressure] 42 mm[Hg] Normal 35-45 [facility] Comment on above: Order Comment: Speci men Type: VENOUS BLOOD SPECIMEN Performed By: #### 2 4344-4 ####[facility]ORYCLIA [id number] [address] Oxygen adjusted to patient's actual temperature (BldV) [Partial pressure] 43.8 mmHg Normal 35-45 [facility] Comment on above: Order Comment: Speci men Type: VENOUS BLOOD SPECIMEN Performed By: #### 2 4344-4 ####[facility]ORYCLIA [id number] [address] Oxygen saturation in Blood 76.7 % Normal 60-85 [facility] Comment on above: Order Comment: Speci men Type: VENOUS BLOOD SPECIMEN Performed By: #### 2 4344-4 ####[facility]ORYCLIA [id number] [address] Oxyhemoglobin (BldV) [Mass fraction] 75 % Normal 60-85 [facility] Comment on above: Order Comment: Speci men Type: VENOUS BLOOD SPECIMEN Performed By: #### 2 4344-4 ####[facility]ORYCLIA [id number] [address] [place] [facility] pH (BldV) 7.42 [pH] Normal 7.32-7.42 [facility] Comment on above: Order Comment: Speci men Type: VENOUS BLOOD SPECIMEN Performed By: #### 2 4344-4 ####[facility]ORYCLIA [id number] [address] pH adjusted to patient's actual temperature (BldV) 7.41 Normal 7.32-7.42 [facility] Comment on above: Order Comment: Speci men Type: VENOUS BLOOD SPECIMEN Performed By: #### 2 4344-4 ####[facility]ORYCLIA [id number] [address] [facility] Potassium [Moles/Vol] 3.5 mmol/L Normal 3.5-5.0 [facility] Comment on above: Order Comment: Speci men Type: VENOUS BLOOD SPECIMEN Performed By: #### 2 4344-4 ####[facility]ORYCLIA [id number] [address] OF [facility] Sodium [Moles/Vol] 157 mmol/L High 136-144 [facility] Comment on above: Order Comment: Speci men Type: VENOUS BLOOD SPECIMEN Performed By: #### 2 4344-4 ####[facility]ORYCLIA [id number] [address] OF [facility] Magnesium SerPl-mCncon 06-13 Magnesium [Mass/Vol] 3.0 mg/dL High 1.7-2.3 [facility] Comment on above: Order Comment: Speci men Type: BLOOD SPECIMEN Performed By: #### 2 4321-2, , 2776-05 ####[facility]ORYCLIA [id number] [address] OF [facility] Magnesium [Mass/Vol] 2.2 mg/dL Normal 1.7-2.3 [facility] Comment on above: Order Comment: Speci men Type: BLOOD SPECIMEN Performed By: #### 2 4321-2, 2776-05, ####[facility]ORYCLIA [id number] [address] OF [facility] Phosphate SerPl-mCncon 06-13 Phosphate [Mass/Vol] 2.2 mg/dL Low 2.7-4.8 [facility] Comment on above: Order Comment: Speci men Type: BLOOD SPECIMEN Performed By: #### 2 4321-2, , 2776-05 ####[facility]ORYCLIA [id number] [address] OF [facility] Phosphate [Mass/Vol] 1.8 mg/dL Low 2.7-4.8 [facility] Comment on above: Order Comment: Speci men Type: BLOOD SPECIMEN Performed By: #### 2 4321-2, 2776-05, ####[facility]ORYCLIA [id number] [place] [address] [place] XR CHEST 1V [...] on above: Performed By: #### 6 11-4 ####[facility]ORATORYCLIA [id number] [place] [address] [place] Basic metabolic 2000 panelon 06-12-2021 Anion gap [Moles/Vol] 6 mmol/L Low 9-18 [facility] Comment on above: Order Comment: Speci men Type: BLOOD SPECIMEN Performed By: #### 2 777-1, 66352-9, ####[facility]ORATORYCLIA [id number] [place] [address] [place] Calcium [Mass/Vol] 8.7 mg/dL Normal 8.5-10.2 [facility] Comment on above: Order Comment: Speci men Type: BLOOD SPECIMEN Performed By: #### 2 777-1, 83028-2, ####[facility]ATORYCLIA [id number] [place] [address] [place] Chloride [Moles/Vol] 118 mmol/L High 97-105 [facility] Comment on above: Order Comment: Speci men Type: BLOOD SPECIMEN Performed By: #### 2 777-1, 26243-4, ####[facility]ORYCLIA [id number] [place] [address] [place] CO2 [Moles/Vol] 28 mmol/L Normal 22-30 [facility] Comment on above: Order Comment: Speci men Type: BLOOD SPECIMEN Performed By: #### 2 777-1, 90297-9, ####[facility]ORATORYCLIA [id number] [place] [address] [place] Creatinine [Mass/Vol] 0.77 mg/dL Normal 0.73-1.22 [facility] Comment on above: Order Comment: Speci men Type: BLOOD SPECIMEN Performed By: #### 2 777-1, 03063-3, ####[facility]ITALIA [id number] [place] [address] [place] GFR/1.73 sq M.predicted MDRD [...] actual GFR. Performed By: #### 2 777-1, 80713-4, ####[facility] HOSPITALIA [id number] [place] [id number] [place] Glucose [Mass/Vol] 116 mg/dL High 74-99 [facility] Comment on above: Order Comment: [facility] Type: BLOOD SPECIMEN Result Comment: [employer] [place] [...] 2016.39(Suppl 1). Performed By: #### 2 777-1, 19035-2, ####[facility]ORATORYCLIA [id number] [place], [place] [address] [place] [address] [place] [facility] Potassium [Moles/Vol] 4.0 mmol/L Normal 3.7-5.1 [facility] Comment on above: Order Comment: Speci men Type: BLOOD SPECIMEN Performed By: #### 2 777-1, 18203-9, ####[facility]ORATORYCLIA [id number] [address] Sodium [Moles/Vol] 152 mmol/L High 136-144 [facility] Comment on above: Order Comment: Speci men Type: BLOOD SPECIMEN Performed By: #### 2 777-1, , ####[facility]ORATORYCLIA [id number] [address] Urea nitrogen [Mass/Vol] 34 mg/dL High 9-24 [facility] Comment on above: Order Comment: Speci men Type: BLOOD SPECIMEN Performed By: #### 2 777-1, , ####[facility]ORATORYCLIA [id number] [address] CBC panel Auto (Bld)on 06-12 Erythrocyte distribution width (RBC) [Ratio] 16.1 % High 11.5-15.0 [facility] Comment on above: Order Comment: Speci men Type: BLOOD SPECIMEN Performed By: #### 5 8410-2 ####[facility]ORATORYCLIA [id number] [address] Hematocrit (Bld) [Volume fraction] 32.8 % Low 39.0-51.0 [facility] Comment on above: Order Comment: Speci men Type: BLOOD SPECIMEN Performed By: #### 5 8410-2 ####[facility]ORATORYCLIA [id number] [address] Hemoglobin (Bld) [Mass/Vol] 9.9 g/dL Low 13.0-17.0 [facility] Comment on above: Order Comment: Speci men Type: BLOOD SPECIMEN Performed By: #### 5 8410-2 ####[facility]ORATORYCLIA [id number] [address] MCH (RBC) [Entitic mass] 28.4 pg Normal 26.0-34.0 [facility] Comment on above: Order Comment: Speci men Type: BLOOD SPECIMEN Performed By: #### 5 8410-2 ####[facility]ATORYCLIA [id number] [address] MCHC (RBC) [Mass/Vol] 30.2 g/dL Low 30.5-36.0 [facility] Comment on above: Order Comment: Speci men Type: BLOOD SPECIMEN Performed By: #### 5 8410-2 ####[facility]ATORYCLIA [id number] [address] MCV (RBC) [Entitic vol] 94.3 fL Normal 80.0-100.0 [facility] Comment on above: Order Comment: Speci men Type: BLOOD SPECIMEN Performed By: #### 5 8410-2 ####[facility]ATORYCLIA [id number] [address] Nucleated RBC (Bld) [#/Vol] 10*3/uL Normal <0.01 [facility] Comment on above: Order Comment: Speci men Type: BLOOD SPECIMEN Performed By: #### 5 8410-2 ####[facility]ORYCLIA [id number] [address] Platelet mean volume (Bld) [Entitic vol] 11.2 fL Normal 9.0-12.7 [facility] Comment on above: Order Comment: Speci men Type: BLOOD SPECIMEN Performed By: #### 5 8410-2 ####[facility]ATORYCLIA [id number] [address] Platelets (Bld) [#/Vol] 218 10*3/uL Normal 150-400 [facility] Comment on above: Order Comment: Speci men Type: BLOOD SPECIMEN Performed By: #### 5 8410-2 ####[facility]ORYCLIA [id number] [address] RBC (Bld) [#/Vol] 3.48 10*6/uL Low 4.20-6.00 [facility] Comment on above: Order Comment: Speci men Type: BLOOD SPECIMEN Performed By: #### 5 8410-2 ####[facility]ORYCLIA [id number] [address] WBC (Bld) [#/Vol] 13.33 10*3/uL High 3.70-11.00 [facility] Comment on above: Order Comment: Speci men Type: BLOOD SPECIMEN Performed By: #### 5 8410-2 ####[facility] LABORATORYCLIA [id number] [address] CONSULT PROGon 06-12-2021 CONSULT PROG Normal [facility] CT DRN PLACE PERIT/RETROP [place] BIon 06-12-[address] PERIT/RETROP FL BI Normal [facility] HISTORY PHYSICALon HISTORY PHYSICAL Normal [facility] Magnesium SerPl-mCncon 06-12 Magnesium [Mass/Vol] 2.7 mg/dL High 1.7-2.3 [facility] Comment on above: Order Comment: Speci men Type: BLOOD SPECIMEN Performed By: #### 2 777-1, 55462-3, 83691-9 ####[facility] LABORATORYCLIA [id number] [address] PT panel Coag (PPP)on 2021 INR [...] al. Chest 2012, 141:[id number]-47SNishimpatricia RA, et al. [facility] 2017, 70: 252-289 Performed By: #### 3 4528-0 ####[facility] LABORATORYCLIA [id number] [place] [address] [place] PT Coag (PPP) [Time] 11.9 s Normal 9.7-13.0 [facility] Comment on above: Order Comment: Speci men Type: BLOOD SPECIMEN Performed By: #### 3 4528-0 ####[facility] LABORATORYCLIA [id number] [place] [address] [place] Phosphate SerPl-mCncon 06-12 Phosphate [Mass/Vol] 2.2 mg/dL Low 2.7-4.8 [facility] Comment on above: Order Comment: Speci men Type: BLOOD SPECIMEN Performed By: #### 2 777-1, 66744-3, 42288-0 ####[facility] LABORATORYCLIA [id number] [place] [address] [place] XR ABDOMEN 1V SUPINEon 06-12 XR ABDOMEN 1V SUPINE Normal [facility] ALLIED HEALTHon 06-11-2021 ALLIED HEALTH Normal [facility] Bacteria Bld Culton 06-11-19 22 Bacteria identified Cx Nom (Bld) CULTURE, BLOOD: No growth 5 days Normal [facility] Comment on above: Performed By: #### 6 00-7 ####[facility] LABORATORYCLIA [id number] [address] Bacteria identified Cx Nom (Bld) CULTURE, BLOOD: No growth 5 days Normal [facility] Comment on above: Performed By: #### 6 00-7 ####[facility] LABORATORYCLIA [id number] [address] Bacteria Ur Culton 2 Bacteria identified Cx Nom (U) CULTURE, URINE: No growth (<1,000 CFU/ml) Normal [facility] Comment on above: Performed By: #### 6 30-4 ####[facility]ORATORYCLIA [id number] [address] [place] Basic metabolic 2000 panelon 06-11-2021 Anion gap [Moles/Vol] 9 mmol/L Normal 9-18 [facility] Comment on above: Order Comment: Speci men Type: BLOOD SPECIMEN Performed By: #### 1 9123-9, 2776-1, 50925-1 ####[facility]ORATORYCLIA [id number] [address] [place] Calcium [Mass/Vol] 8.5 mg/dL Normal 8.5-10.2 [facility] Comment on above: Order Comment: Speci men Type: BLOOD SPECIMEN Performed By: #### 1 9123-9, 7-1, 34269-3 ####[facility]ORATORYCLIA [id number] [address] [place] Chloride [Moles/Vol] 118 mmol/L High 97-105 [facility] Comment on above: Order Comment: Speci men Type: BLOOD SPECIMEN Performed By: #### 1 9123-9, 2777-1, 60827-7 ####[facility]ORATORYCLIA [id number] [address] CO2 [Moles/Vol] 27 mmol/L Normal 22-30 [facility] Comment on above: Order Comment: Speci men Type: BLOOD SPECIMEN Performed By: #### 1 9123-9, 2777-1, 75159-3 ####[facility]ORATORYCLIA [id number] [address] STATES [facility] Creatinine [Mass/Vol] 0.75 mg/dL Normal 0.73-1.22 [facility] Comment on above: Order Comment: Speci men Type: BLOOD SPECIMEN Performed By: #### 1 9123-9, 2777, 88090-1 ####[facility]ORATORYCLIA [id number] [address] GFR/1.73 sq M.predicted MDRD (S/P/Bld) [Vol [...] GFR. Performed By: #### 1 9123-9, 2777-, 36727-7 ####[facility]ORATORYCLIA [id number] [address] OF [facility] Glucose [Mass/Vol] 142 mg/dL High 74-99 [...] 1). Performed By: #### 1 9123-9, 2776-, 61027-7 ####[facility]ORATORYCLIA [id number] [address] Potassium [Moles/Vol] 3.6 mmol/L Low 3.7-5.1 [facility] Comment on above: Order Comment: Speci men Type: BLOOD SPECIMEN Performed By: #### 1 9123-9, , 46659-7 ####[facility]ATORYCLIA [id number] [address] Sodium [Moles/Vol] 154 mmol/L High 136-144 [facility] Comment on above: Order Comment: Speci men Type: BLOOD SPECIMEN Performed By: #### 1 9123-9, 2776-05, 41301-6 ####[facility]ATORYCLIA [id number] [address] Urea nitrogen [Mass/Vol] 31 mg/dL High 9-24 [facility] Comment on above: Order Comment: Speci men Type: BLOOD SPECIMEN Performed By: #### 1 9123-9, 27711-04, 41558-4 ####[facility]ORATORYCLIA [id number] [address] C diff Tox gens Stl Ql MEGAN+p robeon 06-11-2021 C. difficile toxin genes MEGAN+probe Ql (Stl) Negative Normal Negative for C. difficile toxin by PCR [facility] Comment on above: Order Comment: Speci men Type: STOOL SPECIMEN Performed By: #### 5 4067-4 ####[facility]ATORYCLIA [id number] [address] STATES OF [facility] CBC W Auto Differential pane l (Bld)on 06-11-2021 Basophils (Bld) [#/Vol] 0.03 10*3/uL Normal <0.11 [facility] Comment on above: Order Comment: Speci men Type: BLOOD SPECIMEN Performed By: #### 5 7021-8 ####[facility]ATORYCLIA [id number] [address] Basophils/100 WBC (Bld) 0.2 % Normal [facility] Comment on above: Order Comment: Speci men Type: BLOOD SPECIMEN Performed By: #### 5 7021-8 ####[facility]ORYCLIA [id number] [address] Differential cell count method Nom (Bld) Auto Normal [facility] Comment on above: Order Comment: Speci men Type: BLOOD SPECIMEN Performed By: #### 5 7021-8 ####[facility]ORYCLIA [id number] [address] STATES OF [facility] Eosinophils (Bld) [#/Vol] 0.19 10*3/uL Normal <0.46 [facility] Comment on above: Order Comment: Speci men Type: BLOOD SPECIMEN Performed By: #### 5 7021-8 ####[facility]ORYCLIA [id number] [address] Eosinophils/100 WBC (Bld) 1.5 % Normal [facility] Comment on above: Order Comment: Speci men Type: BLOOD SPECIMEN Performed By: #### 5 7021-8 ####[facility]ATORYCLIA [id number] [address] Erythrocyte distribution width (RBC) [Ratio] 16.3 % High 11.5-15.0 [facility] Comment on above: Order Comment: Speci men Type: BLOOD SPECIMEN Performed By: #### 5 7021-8 ####[facility]ATORYCLIA [id number] [address] Hematocrit (Bld) [Volume fraction] 32.1 % Low 39.0-51.0 [facility] Comment on above: Order Comment: Speci men Type: BLOOD SPECIMEN Performed By: #### 5 7021-8 ####[facility]ORATORYCLIA [id number] [address] Hemoglobin (Bld) [Mass/Vol] 9.3 g/dL Low 13.0-17.0 [facility] Comment on above: Order Comment: Speci men Type: BLOOD SPECIMEN Performed By: #### 5 7021-8 ####[facility]ORATORYCLIA [id number] [address] IMMATURE GRAN % 0.6 % Normal [facility] Comment on above: Order Comment: Speci men Type: BLOOD SPECIMEN Performed By: #### 5 7021-8 ####[facility]ORATORYCLIA [id number] [address] IMMATURE GRAN ABS 0.08 k/uL Normal <0.10 [facility] Comment on above: Order Comment: Speci men Type: BLOOD SPECIMEN Performed By: #### 5 7021-8 ####[facility]ORATORYCLIA [id number] [address] Lymphocytes (Bld) [#/Vol] 1.65 10*3/uL Normal 1.00-4.00 [facility] Comment on above: Order Comment: Speci men Type: BLOOD SPECIMEN Performed By: #### 5 7021-8 ####[facility]ORATORYCLIA [id number] [address] Lymphocytes/100 WBC (Bld) 12.8 % Normal [facility] Comment on above: Order Comment: Speci men Type: BLOOD SPECIMEN Performed By: #### 5 7021-8 ####[facility]ORATORYCLIA [id number] [address] MCH (RBC) [Entitic mass] 27.2 pg Normal 26.0-34.0 [facility] Comment on above: Order Comment: Speci men Type: BLOOD SPECIMEN Performed By: #### 5 7021-8 ####[facility]ORATORYCLIA [id number] [address] MCHC (RBC) [Mass/Vol] 29.0 g/dL Low 30.5-36.0 [facility] Comment on above: Order Comment: Speci men Type: BLOOD SPECIMEN Performed By: #### 5 7021-8 ####[facility]ORATORYCLIA [id number] [address] MCV (RBC) [Entitic vol] 93.9 fL Normal 80.0-100.0 [facility] Comment on above: Order Comment: Speci men Type: BLOOD SPECIMEN Performed By: #### 5 7021-8 ####[facility]ATORYCLIA [id number] [address] Monocytes (Bld) [#/Vol] 0.68 10*3/uL Normal <0.87 [facility] Comment on above: Order Comment: Speci men Type: BLOOD SPECIMEN Performed By: #### 5 7021-8 ####[facility]ORATORYCLIA [id number] [address] Monocytes/100 WBC (Bld) 5.3 % Normal [facility] Comment on above: Order Comment: Speci men Type: BLOOD SPECIMEN Performed By: #### 5 7021-8 ####[facility]ORYCLIA [id number] [address] Neutrophils (Bld) [#/Vol] 10.22 10*3/uL High 1.45-7.50 [facility] Comment on above: Order Comment: Speci men Type: BLOOD SPECIMEN Performed By: #### 5 7021-8 ####[facility]ATORYCLIA [id number] [address] Neutrophils/100 WBC (Bld) 79.6 % Normal [facility] Comment on above: Order Comment: Speci men Type: BLOOD SPECIMEN Performed By: #### 5 7021-8 ####[facility]ATORYCLIA [id number] [address] Nucleated RBC (Bld) [#/Vol] 10*3/uL Normal <0.01 [facility] Comment on above: Order Comment: Speci men Type: BLOOD SPECIMEN Performed By: #### 5 7021-8 ####[facility]ATORYCLIA [id number] [address] Nucleated RBC/100 WBC (Bld) [Ratio] 0.0 /100 WBC Normal 0.0 [facility] Comment on above: Order Comment: Speci men Type: BLOOD SPECIMEN Performed By: #### 5 7021-8 ####[facility]ATORYCLIA [id number] [address] Platelet mean volume (Bld) [Entitic vol] 11.1 fL Normal 9.0-12.7 [facility] Comment on above: Order Comment: Speci men Type: BLOOD SPECIMEN Performed By: #### 5 7021-8 ####[facility]ORATORYCLIA [id number] [address] OF [facility] Platelets (Bld) [#/Vol] 188 10*3/uL Normal 150-400 [facility] Comment on above: Order Comment: Speci men Type: BLOOD SPECIMEN Performed By: #### 5 7021-8 ####[facility]ORATORYCLIA [id number] [address] RBC (Bld) [#/Vol] 3.42 10*6/uL Low 4.20-6.00 [facility] Comment on above: Order Comment: Speci men Type: BLOOD SPECIMEN Performed By: #### 5 7021-8 ####[facility]ORYCLIA [id number] [address] [place] WBC (Bld) [#/Vol] 12.85 10*3/uL High 3.70-11.00 [facility] Comment on above: Order Comment: Speci men Type: BLOOD SPECIMEN Performed By: #### 5 7021-8 ####[facility]ATORYCLIA [id number] [address] CBC panel Auto (Bld)on 06-11 Erythrocyte distribution width (RBC) [Ratio] 16.2 % High 11.5-15.0 [facility] Comment on above: Order Comment: Speci men Type: BLOOD SPECIMEN Performed By: #### 5 8410-2 ####[facility]ORATORYCLIA [id number] [address] Hematocrit (Bld) [Volume fraction] 34.5 % Low 39.0-51.0 [facility] Comment on above: Order Comment: Speci men Type: BLOOD SPECIMEN Performed By: #### 5 8410-2 ####[facility]ATORYCLIA [id number] [address] Hemoglobin (Bld) [Mass/Vol] 10.3 g/dL Low 13.0-17.0 [facility] Comment on above: Order Comment: Speci men Type: BLOOD SPECIMEN Performed By: #### 5 8410-2 ####[facility]ATORYCLIA [id number] [address] MCH (RBC) [Entitic mass] 28.1 pg Normal 26.0-34.0 [facility] Comment on above: Order Comment: Speci men Type: BLOOD SPECIMEN Performed By: #### 5 8410-2 ####[facility]ORATORYCLIA [id number] [address] MCHC (RBC) [Mass/Vol] 29.9 g/dL Low 30.5-36.0 [facility] Comment on above: Order Comment: Speci men Type: BLOOD SPECIMEN Performed By: #### 5 8410-2 ####[facility]ORATORYCLIA [id number] [address] MCV (RBC) [Entitic vol] 94.3 fL Normal 80.0-100.0 [facility] Comment on above: Order Comment: Speci men Type: BLOOD SPECIMEN Performed By: #### 5 8410-2 ####[facility]ATORYCLIA [id number] [address] Nucleated RBC (Bld) [#/Vol] 10*3/uL Normal <0.01 [facility] Comment on above: Order Comment: Speci men Type: BLOOD SPECIMEN Performed By: #### 5 8410-2 ####[facility]ATORYCLIA [id number] [address] Platelet mean volume (Bld) [Entitic vol] 10.9 fL Normal 9.0-12.7 [facility] Comment on above: Order Comment: Speci men Type: BLOOD SPECIMEN Performed By: #### 5 8410-2 ####[facility]ATORYCLIA [id number] [address] Platelets (Bld) [#/Vol] 210 10*3/uL Normal 150-400 [facility] Comment on above: Order Comment: Speci men Type: BLOOD SPECIMEN Performed By: #### 5 8410-2 ####[facility]ORATORYCLIA [id number] [address] RBC (Bld) [#/Vol] 3.66 10*6/uL Low 4.20-6.00 [facility] Comment on above: Order Comment: Speci men Type: BLOOD SPECIMEN Performed By: #### 5 8410-2 ####[facility]ORATORYCLIA [id number] [address] STATES OF [facility] WBC (Bld) [#/Vol] 13.03 10*3/uL High 3.70-11.00 [facility] Comment on above: Order Comment: Speci men Type: BLOOD SPECIMEN Performed By: #### 5 8410-2 ####[facility]ORATORYCLIA [id number] [address] CONSULT PROGon 06-11-2021 CONSULT PROG Normal [facility] CONSULT PROG Normal [facility] CONSULT PROG Normal [facility] CT ABD/PEL W IVCONon 022 CT ABD/PEL W IVCON Invalid Interpretation Code [facility] Magnesium SerPl-mCncon 06-11 Magnesium [Mass/Vol] 2.7 mg/dL High 1.7-2.3 [facility] Comment on above: Order Comment: Speci men Type: BLOOD SPECIMEN Performed By: #### 1 9123-9, 2776-1, 78211-1 ####[facility]ORATORYCLIA [id number] [place] [address] [place] Phosphate SerPl-mCncon 06-11 Phosphate [Mass/Vol] 2.5 mg/dL Low 2.7-4.8 [facility] Comment on above: Order Comment: Speci men Type: BLOOD SPECIMEN Performed By: #### 1 9123-9, 1, 39607-7 ####[facility]ATORYCLIA [id number] [place] [address] [place] Basic metabolic 2000 panelon 06-10-2021 Anion gap [Moles/Vol] 7 mmol/L Low 9-18 [facility] Comment on above: Order Comment: Speci men Type: BLOOD SPECIMEN Performed By: #### 2 777-1, 90847-2, , HFP ####[facility]ORATORYCLIA [id number] [place] [address] [place] Calcium [Mass/Vol] 8.5 mg/dL Normal 8.5-10.2 [facility] Comment on above: Order Comment: Speci men Type: BLOOD SPECIMEN Performed By: #### 2 777-1, 01882-4, , HFP ####[facility]ATORYCLIA [id number] [place] [address] [place] Chloride [Moles/Vol] 118 mmol/L High 97-105 [facility] Comment on above: Order Comment: Speci men Type: BLOOD SPECIMEN Performed By: #### 2 777-1, 22780-2, , [facility] ####[facility]ORATORYCLIA [id number] [address] STATES [facility] CO2 [Moles/Vol] 26 mmol/L Normal 22-30 [facility] Comment on above: Order Comment: Speci men Type: BLOOD SPECIMEN Performed By: #### 2 777-1, 82039-4, , [facility] ####[facility]ORATORYCLIA [id number] [address] [place] Creatinine [Mass/Vol] 0.70 mg/dL Low 0.73-1.22 [facility] Comment on above: Order Comment: Speci men Type: BLOOD SPECIMEN Performed By: #### 2 777-1, 60616-1, , [facility] ####[facility]ORATORYCLIA [id number] [address] [place] GFR/1.73 sq M.predicted [...] has been calibrated to be traceable to [employer]Superpedestrian. An eGFR <60 mL/min/1.73m2 for >3 months is consistent with chronic kidney disease. Refer to KDOQI guidelines for clinical interpretation. In patients with unstable renal function, e.g. those with acute kidney injury, the eGFR may not accurately reflect actual GFR. Performed By: #### 2 777-1, 90784-9, , [facility] ####[facility]ORATORYCLIA [id number] [place] [id number] [place] Glucose [Mass/Vol] 135 mg/dL [...] 2016.39(Suppl 1). Performed By: #### 2 777-1, 02289-5, , [facility] ####[facility]ORATORYCLIA [id number] [place] [address] [place] Potassium [Moles/Vol] 3.9 mmol/L Normal 3.7-5.1 [facility] Comment on above: Order Comment: Speci men Type: BLOOD SPECIMEN Performed By: #### 2 777-1, 68690-7, , HFP ####[facility]ORATORYCLIA [id number] [address] STATES OF [facility] Sodium [Moles/Vol] 151 mmol/L High 136-144 [facility] Comment on above: Order Comment: Speci men Type: BLOOD SPECIMEN Performed By: #### 2 777-1, 83653-7, , HFP ####[facility]ORATORYCLIA [id number] [place] [address] [place] Urea nitrogen [Mass/Vol] 27 mg/dL High 9-24 [facility] Comment on above: Order Comment: Speci men Type: BLOOD SPECIMEN Performed By: #### 2 777-1, 86790-2, , HFP ####[facility]ORATORYCLIA [id number] [place] [address] [place] CASE MANAGEMon 06-10-2021 CASE MANAGEM Normal [facility] CBC panel Auto (Bld)on 06-10 Erythrocyte distribution width (RBC) [Ratio] 16.2 % High 11.5-15.0 [facility] Comment on above: Order Comment: Speci men Type: BLOOD SPECIMEN Performed By: #### 5 8410-2 ####[facility]ORATORYCLIA [id number] [address] Hematocrit (Bld) [Volume fraction] 34.8 % Low 39.0-51.0 [facility] Comment on above: Order Comment: Speci men Type: BLOOD SPECIMEN Performed By: #### 5 8410-2 ####[facility]ORATORYCLIA [id number] [address] Hemoglobin (Bld) [Mass/Vol] 10.2 g/dL Low 13.0-17.0 [facility] Comment on above: Order Comment: Speci men Type: BLOOD SPECIMEN Performed By: #### 5 8410-2 ####[facility]ORATORYCLIA [id number] [address] MCH (RBC) [Entitic mass] 27.1 pg Normal 26.0-34.0 [facility] Comment on above: Order Comment: Speci men Type: BLOOD SPECIMEN Performed By: #### 5 8410-2 ####[facility]ORATORYCLIA [id number] [address] [place] [facility] MCHC (RBC) [Mass/Vol] 29.3 g/dL Low 30.5-36.0 [facility] Comment on above: Order Comment: Speci men Type: BLOOD SPECIMEN Performed By: #### 5 8410-2 ####[facility]ORATORYCLIA [id number] [address] MCV (RBC) [Entitic vol] 92.6 fL Normal 80.0-100.0 [facility] Comment on above: Order Comment: Speci men Type: BLOOD SPECIMEN Performed By: #### 5 8410-2 ####[facility]ORATORYCLIA [id number] [address] Nucleated RBC (Bld) [#/Vol] 10*3/uL Normal <0.01 [facility] Comment on above: Order Comment: Speci men Type: BLOOD SPECIMEN Performed By: #### 5 8410-2 ####[facility]ORATORYCLIA [id number] [address] Platelet mean volume (Bld) [Entitic vol] 10.4 fL Normal 9.0-12.7 [facility] Comment on above: Order Comment: Speci men Type: BLOOD SPECIMEN Performed By: #### 5 8410-2 ####[facility]ATORYCLIA [id number] [address] Platelets (Bld) [#/Vol] 206 10*3/uL Normal 150-400 [facility] Comment on above: Order Comment: Speci men Type: BLOOD SPECIMEN Performed By: #### 5 8410-2 ####[facility]ORATORYCLIA [id number] [address] RBC (Bld) [#/Vol] 3.76 10*6/uL Low 4.20-6.00 [facility] Comment on above: Order Comment: Speci men Type: BLOOD SPECIMEN Performed By: #### 5 8410-2 ####[facility]ORATORYCLIA [id number] [address] WBC (Bld) [#/Vol] 11.36 10*3/uL High 3.70-11.00 [facility] Comment on above: Order Comment: Speci men Type: BLOOD SPECIMEN Performed By: #### 5 8410-2 ####[facility]ORATORYCLIA [id number] [address] HEPATIC FUNCTION PNLon 06-10 Albumin [Mass/Vol] 3.1 g/dL Low 3.9-4.9 [facility] Comment on above: Order Comment: Speci men Type: BLOOD SPECIMEN Performed By: #### 2 777-1, 19936-1, , HFP ####[facility]ORATORYCLIA [id number] [place], [place] [address] [place] [address] ALP [Catalytic activity/Vol] 73 U/L Normal 38-113 [facility] Comment on above: Order Comment: Speci men Type: BLOOD SPECIMEN Performed By: #### 2 777-1, 76858-6, , HFP ####[facility]ORATORYCLIA [id number] [place], [place] [address] [place] [address] ALT With P-5'-P [Catalytic activity/Vol] 64 U/L High 10-54 [facility] Comment on above: Order Comment: Speci men Type: BLOOD SPECIMEN Performed By: #### 2 777-1, 65432-6, , HFP ####[facility]ATORYCLIA [id number] [place], [place] [address] [place] [address] AST With P-5'-P [Catalytic activity/Vol] 44 U/L High 14-40 [facility] Comment on above: Order Comment: Speci men Type: BLOOD SPECIMEN Performed By: #### 2 777-1, 16864-4, , HFP ####[facility]ATORYCLIA [id number] [place], [place] [address] [place] [address] Bilirubin [Mass/Vol] 0.5 mg/dL Normal 0.2-1.3 [facility] Comment on above: Order Comment: Speci men Type: BLOOD SPECIMEN Performed By: #### 2 777-1, 83918-1, , HFP ####[facility]ATORYCLIA [id number] [place] [address] [facility] Bilirubin.conjugated [Mass/Vol] mg/dL Normal <0.2 [facility] Comment on above: Order Comment: Speci men Type: BLOOD SPECIMEN Performed By: #### 2 777-1, 01271-0, , HFP ####[facility]ATORYCLIA [id number] [place] [address] [facility] Protein [Mass/Vol] 5.7 g/dL Low 6.3-8.0 [facility] Comment on above: Order Comment: Speci men Type: BLOOD SPECIMEN Performed By: #### 2 777-1, 58799-0, , [facility] ####[facility] LABORATORYCLIA [id number] [address] [place] LEVETIRACETAMon 06-10-2021 levETIRAcetam [Mass/Vol] 57.7 [...] developed and its performance characteristics determined by [facility] [place] ([facility]). It has not been cleared or approved by the FDA. [facility] is regulated under CLIA as qualified to perform high complexity testing. This test is used for clinical purposes. It should not be regarded as investigational or for research. Performed By: #### L DARY ####[facility] LAB REFERENCE LABCLIA [id number] [address] [id number] [address] [place] Magnesium SerPl-mCncon 06-10 Magnesium [Mass/Vol] 2.7 mg/dL High 1.7-2.3 [facility] Comment on above: Order Comment: Speci men Type: BLOOD SPECIMEN Performed By: #### 2 777-1, 73362-7, , [facility] ####[facility] LABORATORYCLIA [id number] [place] [address] [place] Phosphate SerPl-mCncon 06-10 Phosphate [Mass/Vol] 1.8 mg/dL Low 2.7-4.8 [facility] Comment on above: Order Comment: Speci men Type: BLOOD SPECIMEN Performed By: #### 2 777-1, 75306-6, , [facility] ####[facility]ORATORYCLIA [id number] [place] [address] [place] ALLIED HEALTHon 06-09-2021 [...] SPECIMEN Performed By: #### 2 4321-2, 2776-05, ####[facility]ATORYCLIA [id number] [place] [address] [place] Calcium [Mass/Vol] 8.3 mg/dL Low 8.5-10.2 [facility] Comment on above: Order Comment: Speci men Type: BLOOD SPECIMEN Performed By: #### 2 4321-2, 2776-05, ####[facility]ATORYCLIA [id number] [place] [address] [place] Chloride [Moles/Vol] 116 mmol/L High 97-105 [facility] Comment on above: Order Comment: Speci men Type: BLOOD SPECIMEN Performed By: #### 2 4321-2, 2776-05, ####[facility]ATORYCLIA [id number] [place] [address] [place] CO2 [Moles/Vol] 27 mmol/L Normal 22-30 [facility] Comment on above: Order Comment: Speci men Type: BLOOD SPECIMEN Performed By: #### 2 4321-2, 2776-05, ####[facility]ATORYCLIA [id number] [place] [address] [place] Creatinine [Mass/Vol] 0.70 mg/dL Low 0.73-1.22 [facility] Comment on above: Order Comment: Speci [facility] Type: BLOOD SPECIMEN Performed By: #### 2 4321-2, 2777-1, 80558-1 ####[facility] LABORATORYCLIA [id number] [place] [address] [place] GFR/1.73 sq M.predicted [...] GFR. Performed By: #### 2 4321-2, 2777-1, 65347-6 ####[facility] [id number] [place] [id number] [place] Glucose [Mass/Vol] 123 mg/dL High 74-99 [facility] Comment on above: Order Comment: [facility] Type: BLOOD SPECIMEN Result Comment: [facility] [place] [...] 1). Performed By: #### 2 4321-2, 2776-05, ####[facility]ORYCLIA [id number] [place], [place] [address] [place] [address] [place] [facility] Potassium [Moles/Vol] 3.5 mmol/L Low 3.7-5.1 [facility] Comment on above: Order Comment: Speci men Type: BLOOD SPECIMEN Performed By: #### 2 4321-2, 2776-05, ####[facility]ORYCLIA [id number] [place], [place] [address] [place] [address] Sodium [Moles/Vol] 151 mmol/L High 136-144 [facility] Comment on above: Order Comment: Speci men Type: BLOOD SPECIMEN Performed By: #### 2 4321-2, 2776-05, ####[facility]ORATORYCLIA [id number] [address] Urea nitrogen [Mass/Vol] 39 mg/dL High 9-24 [facility] Comment on above: Order Comment: Speci men Type: BLOOD SPECIMEN Performed By: #### 2 4321-2, 2776-05, ####[facility]ORATORYCLIA [id number] [address] CBC panel Auto (Bld)on 06-09 Erythrocyte distribution width (RBC) [Ratio] 16.2 % High 11.5-15.0 [facility] Comment on above: Order Comment: Speci men Type: BLOOD SPECIMEN Performed By: #### 5 8410-2 ####[facility]ORYCLIA [id number] [address] Hematocrit (Bld) [Volume fraction] 33.7 % Low 39.0-51.0 [facility] Comment on above: Order Comment: Speci men Type: BLOOD SPECIMEN Performed By: #### 5 8410-2 ####[facility]ORYCLIA [id number] [address] Hemoglobin (Bld) [Mass/Vol] 10.2 g/dL Low 13.0-17.0 [facility] Comment on above: Order Comment: Speci men Type: BLOOD SPECIMEN Performed By: #### 5 8410-2 ####[facility]ORATORYCLIA [id number] [address] MCH (RBC) [Entitic mass] 27.4 pg Normal 26.0-34.0 [facility] Comment on above: Order Comment: Speci men Type: BLOOD SPECIMEN Performed By: #### 5 8410-2 ####[facility]ORATORYCLIA [id number] [address] MCHC (RBC) [Mass/Vol] 30.3 g/dL Low 30.5-36.0 [facility] Comment on above: Order Comment: Speci men Type: BLOOD SPECIMEN Performed By: #### 5 8410-2 ####[facility]ORATORYCLIA [id number] [address] MCV (RBC) [Entitic vol] 90.6 fL Normal 80.0-100.0 [facility] Comment on above: Order Comment: Speci men Type: BLOOD SPECIMEN Performed By: #### 5 8410-2 ####[facility]ORATORYCLIA [id number] [address] Nucleated RBC (Bld) [#/Vol] 10*3/uL Normal <0.01 [facility] Comment on above: Order Comment: Speci men Type: BLOOD SPECIMEN Performed By: #### 5 8410-2 ####[facility]ATORYCLIA [id number] [address] Platelet mean volume (Bld) [Entitic vol] 10.3 fL Normal 9.0-12.7 [facility] Comment on above: Order Comment: Speci men Type: BLOOD SPECIMEN Performed By: #### 5 8410-2 ####[facility]ATORYCLIA [id number] [address] Platelets (Bld) [#/Vol] 219 10*3/uL Normal 150-400 [facility] Comment on above: Order Comment: Speci men Type: BLOOD SPECIMEN Performed By: #### 5 8410-2 ####[facility]ORATORYCLIA [id number] [address] RBC (Bld) [#/Vol] 3.72 10*6/uL Low 4.20-6.00 [facility] Comment on above: Order Comment: Speci men Type: BLOOD SPECIMEN Performed By: #### 5 8410-2 ####[facility]ATORYCLIA [id number] [address] WBC (Bld) [#/Vol] 13.02 10*3/uL High 3.70-11.00 [facility] Comment on above: Order Comment: Speci men Type: BLOOD SPECIMEN Performed By: #### 5 8410-2 ####[facility]ORATORYCLIA [id number] [address] CONSULT PROGon 06-09-2021 CONSULT PROG Normal [facility] CONSULT PROG Normal [facility] CT BRAIN WO IVCONon 06-09-[address] BRAIN WO IVCON Normal [facility] Magnesium SerPl-mCncon 06-09 Magnesium [Mass/Vol] 2.8 mg/dL High 1.7-2.3 [facility] Comment on above: Order Comment: Speci men Type: BLOOD SPECIMEN Performed By: #### 2 4321-2, 2777-1, 83907-9 ####[facility]ORATORYCLIA [id number] [address] [place] NURSING PROGon 06-09-2021 NURSING PROG Normal [facility] NUTRITIONon 06-09-2021 NUTRITION Normal [facility] PT EDon 06-09-2021 PT ED Normal [facility] Phosphate SerPl-mCncon 06-09 Phosphate [Mass/Vol] 2.2 mg/dL Low 2.7-4.8 [facility] Comment on above: Order Comment: Speci men Type: BLOOD SPECIMEN Performed By: #### 2 4321-2, 2777-1, 09421-0 ####[facility]ORATORYCLIA [id number] [address] Vancomycin random [Mass/Vol] on 06-09-2021 Vancomycin [Mass/Vol] 18.9 ug/mL Normal 10.0-20.0 [facility] Comment on above: Order Comment: Speci men Type: BLOOD SPECIMEN Result Comment: Refe rence ranges and high/low indicator flags are provided as general guidelines only. The treating physician must determine appropriate target levels/dosing based on the specific clinical situation. Performed By: #### 4 091-5 ####[facility]ORATORYCLIA [id number] [address] XR ABD 2V SUPINE W UPR/DECUB [...] 1 Rare Staphylococcus saccharolyticus Identification performed by [facility] See scanned document for susceptibility report Normal [facility] Comment on above: Performed By: #### 6 462-6, 635-3 ####[facility]ORATORYCLIA [id number] [address] Bacteria Wnd Culton 06-08-19 22 Bacteria identified Cx Nom (Wound) CULTURE, INTRAOPERATIVE HARDWARE: No growth 5 days GRAM STAIN: Not performed on specimen type Normal [facility] Comment on above: Performed By: #### 6 462-6, 635-3 ####[facility]ORYCLIA [id number] [place], [place] [id number] [place] [address] [place] Basic metabolic 2000 panelon 06-08-2021 Anion gap [Moles/Vol] 9 mmol/L Normal 9-18 [facility] Comment on above: Order Comment: Speci men Type: BLOOD SPECIMEN Performed By: #### 2 4321-2, 2776-, ####[facility]ORYCLIA [id number] [place] [address] [place] Calcium [Mass/Vol] 8.7 mg/dL Normal 8.5-10.2 [facility] Comment on above: Order Comment: Speci men Type: BLOOD SPECIMEN Performed By: #### 2 4321-2, 2776-, ####[facility]ORYCLIA [id number] [place] [address] [place] Chloride [Moles/Vol] 113 mmol/L High 97-105 [facility] Comment on above: Order Comment: Speci men Type: BLOOD SPECIMEN Performed By: #### 2 4321-2, 2776-05, ####[facility]ORYCLIA [id number] [place] [address] [place] CO2 [Moles/Vol] 26 mmol/L Normal 22-30 [facility] Comment on above: Order Comment: Speci men Type: BLOOD SPECIMEN Performed By: #### 2 4321-2, 2776-, ####[facility]ORYCLIA [id number] [place] [address] [place] Creatinine [Mass/Vol] 0.68 mg/dL Low 0.73-1.22 [facility] Comment on above: Order Comment: Speci men Type: BLOOD SPECIMEN Performed By: #### 2 4321-2, 2777-, ####[facility]ORATORYCLIA [id number] [place], [place] [address] [place] [address] [place] GFR/1.73 sq M.predicted MDRD [...] GFR. Performed By: #### 2 4321-2, 2777-, ####[facility]ITAL[facility] [id number] [place] [address] [place] Glucose [Mass/Vol] 146 [...] 1). Performed By: #### 2 4321-2, 2777-, 71363-8 ####[facility]ORATORYCLIA [id number] [place], [place] [address] [place] [address] [place] [facility] Potassium [Moles/Vol] 3.6 mmol/L Low 3.7-5.1 [facility] Comment on above: Order Comment: Speci men Type: BLOOD SPECIMEN Performed By: #### 2 4321-2, 2776-, ####[facility]ORATORYCLIA [id number] [place] [address] [place] [facility] Sodium [Moles/Vol] 148 mmol/L High 136-144 [facility] Comment on above: Order Comment: Speci men Type: BLOOD SPECIMEN Performed By: #### 2 4321-2, 2776-, ####[facility]ATORYCLIA [id number] [address] Urea nitrogen [Mass/Vol] 36 mg/dL High 9-24 [facility] Comment on above: Order Comment: Speci men Type: BLOOD SPECIMEN Performed By: #### 2 4321-2, 2776-05, ####[facility]ORATORYCLIA [id number] [address] STATES OF [facility] CASE MANAGEMon 06-08-2021 CASE MANAGEM Normal [facility] CBC panel Auto (Bld)on 06-08 Erythrocyte distribution width (RBC) [Ratio] 16.0 % High 11.5-15.0 [facility] Comment on above: Order Comment: Speci men Type: BLOOD SPECIMEN Performed By: #### 5 8410-2 ####[facility]ATORYCLIA [id number] [address] OF [facility] Hematocrit (Bld) [Volume fraction] 38.4 % Low 39.0-51.0 [facility] Comment on above: Order Comment: Speci men Type: BLOOD SPECIMEN Performed By: #### 5 8410-2 ####[facility]ATORYCLIA [id number] [address] [place] Hemoglobin (Bld) [Mass/Vol] 12.1 g/dL Low 13.0-17.0 [facility] Comment on above: Order Comment: Speci men Type: BLOOD SPECIMEN Performed By: #### 5 8410-2 ####[facility]ATORYCLIA [id number] [address] MCH (RBC) [Entitic mass] 28.3 pg Normal 26.0-34.0 [facility] Comment on above: Order Comment: Speci men Type: BLOOD SPECIMEN Performed By: #### 5 8410-2 ####[facility]ORYCLIA [id number] [address] MCHC (RBC) [Mass/Vol] 31.5 g/dL Normal 30.5-36.0 [facility] Comment on above: Order Comment: Speci men Type: BLOOD SPECIMEN Performed By: #### 5 8410-2 ####[facility]ATORYCLIA [id number] [address] MCV (RBC) [Entitic vol] 89.9 fL Normal 80.0-100.0 [facility] Comment on above: Order Comment: Speci men Type: BLOOD SPECIMEN Performed By: #### 5 8410-2 ####[facility]ATORYCLIA [id number] [address] Nucleated RBC (Bld) [#/Vol] 10*3/uL Normal <0.01 [facility] Comment on above: Order Comment: Speci men Type: BLOOD SPECIMEN Performed By: #### 5 8410-2 ####[facility]ATORYCLIA [id number] [address] Platelet mean volume (Bld) [Entitic vol] 10.3 fL Normal 9.0-12.7 [facility] Comment on above: Order Comment: Speci men Type: BLOOD SPECIMEN Performed By: #### 5 8410-2 ####[facility]ATORYCLIA [id number] [address] Platelets (Bld) [#/Vol] 236 10*3/uL Normal 150-400 [facility] Comment on above: Order Comment: Speci men Type: BLOOD SPECIMEN Performed By: #### 5 8410-2 ####[facility]ORYCLIA [id number] [address] RBC (Bld) [#/Vol] 4.27 10*6/uL Normal 4.20-6.00 [facility] Comment on above: Order Comment: Speci men Type: BLOOD SPECIMEN Performed By: #### 5 8410-2 ####[facility]ATORYCLIA [id number] [address] WBC (Bld) [#/Vol] 11.06 10*3/uL High 3.70-11.00 [facility] Comment on above: Order Comment: Speci men Type: BLOOD SPECIMEN Performed By: #### 5 8410-2 ####[facility]ORATORYCLIA [id number] [address] CONSULT PROGon 06-08-[address] [facility] CT BRAIN WO IVCONon 06-08-19 CT BRAIN WO IVCON Normal [facility] Magnesium SerPl-mCncon 06-08 Magnesium [Mass/Vol] 2.8 mg/dL High 1.7-2.3 [facility] Comment on above: Order Comment: Speci men Type: BLOOD SPECIMEN Performed By: #### 2 4321-2, 2777-1, 02270-8 ####[facility]ATORYCLIA [id number] [address] Microorganism Spec Culton Microorganism identified Cx Nom (Unsp spec) CULTURE, FUNGAL: No Fungus isolated after 28 days FUNGAL SMEAR: No fungus seen [facility] Comment on above: Performed By: #### 1 1475-1 ####[facility]ORYCLIA [id number] [address] NURSING PROGon 06-08-2021 NURSING PROG Normal [facility] OPERATIVE NOon 02-02-2022 OPERATIVE NO Normal [facility] [...] al. Chest 2012, 141:7S-47SNishimpatricia RA, et al. [facility] 2017, 70: 252-289 Performed By: #### 3 4528-0, 42644-1 ####[facility]ORATORYCLIA [id number] [place] [address] [place] PT Coag (PPP) [Time] 11.9 s Normal 9.7-13.0 [facility] Comment on above: Order Comment: Speci men Type: BLOOD SPECIMEN Performed By: #### 3 4528-0, 68395-9 ####[facility]ATORYCLIA [id number] [place] [address] [place] Phosphate SerPl-mCncon 06-08 Phosphate [Mass/Vol] 2.3 mg/dL Low 2.7-4.8 [facility] Comment on above: Order Comment: Speci men Type: BLOOD SPECIMEN Performed By: #### 2 4321-2, 2777-1, 76320-6 ####[facility]ATORYCLIA [id number] [address] aPTT PPPon 06-08-2021 aPTT Coag (PPP) [Time] 24.2 s Normal 23.0-32.4 [facility] Comment on above: Order Comment: Speci men Type: BLOOD SPECIMEN Performed By: #### 3 4528-0, 01736-7 ####[facility]ATORYCLIA [id number] [address] ALLIED HEALTHon 06-07-2021 ALLIED HEALTH Normal [...] on above: Performed By: #### 6 06-4 ####[facility]ATORYCLIA [id number] [address] Basic metabolic 2000 panelon 06-07-2021 Anion gap [Moles/Vol] 9 mmol/L Normal 9-18 [facility] Comment on above: Order Comment: Speci men Type: BLOOD SPECIMEN Performed By: #### 1 9123-9, 2777-1, 04911-0 ####[facility]ATORYCLIA [id number] [address] Calcium [Mass/Vol] 8.8 mg/dL Normal 8.5-10.2 [facility] Comment on above: Order Comment: Speci men Type: BLOOD SPECIMEN Performed By: #### 1 9123-9, 2777-1, 53232-3 ####[facility]ATORYCLIA [id number] [address] Chloride [Moles/Vol] 111 mmol/L High 97-105 [facility] Comment on above: Order Comment: Speci men Type: BLOOD SPECIMEN Performed By: #### 1 9123-9, 2777-1, 86706-1 ####[facility]ATORYCLIA [id number] [place] [address] [place] [facility] CO2 [Moles/Vol] 27 mmol/L Normal 22-30 [facility] Comment on above: Order Comment: Speci men Type: BLOOD SPECIMEN Performed By: #### 1 9123-9, 2777-1, 44593-8 ####[facility]ATORYCLIA [id number] [place] [id number] [place] Creatinine [Mass/Vol] 0.66 mg/dL Low 0.73-1.22 [facility] Comment on above: Order Comment: Speci men Type: BLOOD SPECIMEN Performed By: #### 1 9123-9, 2777-, 58465-8 ####[facility]ATORYCLIA [id number] [address] [place] GFR/1.73 sq M.predicted [...] GFR. Performed By: #### 1 9123-9, 2777-1, 14809-5 ####[facility]ATORYCLIA [id number] [place] [id number] [place] Glucose [Mass/Vol] 123 mg/dL [...] 1). Performed By: #### 1 9123-9, 2777-, 60936-3 ####[facility]ATORYCLIA [id number] [address] Potassium [Moles/Vol] 3.6 mmol/L Low 3.7-5.1 [facility] Comment on above: Order Comment: Speci men Type: BLOOD SPECIMEN Performed By: #### 1 9123-9, 277, 51551-2 ####[facility]ATORYCLIA [id number] [address] Sodium [Moles/Vol] 147 mmol/L High 136-144 [facility] Comment on above: Order Comment: Speci men Type: BLOOD SPECIMEN Performed By: #### 1 9123-9, 2777, 17009-5 ####[facility]ATORYCLIA [id number] [address] Urea nitrogen [Mass/Vol] 30 mg/dL High 9-24 [facility] Comment on above: Order Comment: Speci men Type: BLOOD SPECIMEN Performed By: #### 1 9123-9, 2777-, 99466-1 ####[facility]ATORYCLIA [id number] [address] CBC W Auto Differential pane l (Bld)on 06-07-2021 Basophils (Bld) [#/Vol] 10*3/uL Normal <0.11 [facility] Comment on above: Order Comment: Speci men Type: BLOOD SPECIMEN Performed By: #### 5 7021-8 ####[facility]ORYCLIA [id number] [address] Basophils/100 WBC (Bld) 0.2 % Normal [facility] Comment on above: Order Comment: Speci men Type: BLOOD SPECIMEN Performed By: #### 5 7021-8 ####[facility]ORYCLIA [id number] [address] Differential cell count method Nom (Bld) Auto Normal [facility] Comment on above: Order Comment: Speci men Type: BLOOD SPECIMEN Performed By: #### 5 7021-8 ####[facility]ORYCLIA [id number] [address] Eosinophils (Bld) [#/Vol] 0.06 10*3/uL Normal <0.46 [facility] Comment on above: Order Comment: Speci men Type: BLOOD SPECIMEN Performed By: #### 5 7021-8 ####[facility]ORYCLIA [id number] [address] Eosinophils/100 WBC (Bld) 0.6 % Normal [facility] Comment on above: Order Comment: Speci men Type: BLOOD SPECIMEN Performed By: #### 5 7021-8 ####[facility]ORYCLIA [id number] [address] Erythrocyte distribution width (RBC) [Ratio] 15.8 % High 11.5-15.0 [facility] Comment on above: Order Comment: Speci men Type: BLOOD SPECIMEN Performed By: #### 5 7021-8 ####[facility]ATORYCLIA [id number] [address] Hematocrit (Bld) [Volume fraction] 40.4 % Normal 39.0-51.0 [facility] Comment on above: Order Comment: Speci men Type: BLOOD SPECIMEN Performed By: #### 5 7021-8 ####[facility]ORYCLIA [id number] [address] Hemoglobin (Bld) [Mass/Vol] 12.4 g/dL Low 13.0-17.0 [facility] Comment on above: Order Comment: Speci men Type: BLOOD SPECIMEN Performed By: #### 5 7021-8 ####[facility]ORATORYCLIA [id number] [address] IMMATURE GRAN % 0.7 % Normal [facility] Comment on above: Order Comment: Speci men Type: BLOOD SPECIMEN Performed By: #### 5 7021-8 ####[facility]ATORYCLIA [id number] [address] IMMATURE GRAN ABS 0.07 k/uL Normal <0.10 [facility] Comment on above: Order Comment: Speci men Type: BLOOD SPECIMEN Performed By: #### 5 7021-8 ####[facility]ATORYCLIA [id number] [address] Lymphocytes (Bld) [#/Vol] 1.43 10*3/uL Normal 1.00-4.00 [facility] Comment on above: Order Comment: Speci men Type: BLOOD SPECIMEN Performed By: #### 5 7021-8 ####[facility]ATORYCLIA [id number] [address] Lymphocytes/100 WBC (Bld) 14.1 % Normal [facility] Comment on above: Order Comment: Speci men Type: BLOOD SPECIMEN Performed By: #### 5 7021-8 ####[facility]ATORYCLIA [id number] [address] MCH (RBC) [Entitic mass] 27.6 pg Normal 26.0-34.0 [facility] Comment on above: Order Comment: Speci men Type: BLOOD SPECIMEN Performed By: #### 5 7021-8 ####[facility]ATORYCLIA [id number] [address] [place] MCHC (RBC) [Mass/Vol] 30.7 g/dL Normal 30.5-36.0 [facility] Comment on above: Order Comment: Speci men Type: BLOOD SPECIMEN Performed By: #### 5 7021-8 ####[facility]ATORYCLIA [id number] [address] MCV (RBC) [Entitic vol] 89.8 fL Normal 80.0-100.0 [facility] Comment on above: Order Comment: Speci men Type: BLOOD SPECIMEN Performed By: #### 5 7021-8 ####[facility]ATORYCLIA [id number] [address] Monocytes (Bld) [#/Vol] 0.82 10*3/uL Normal <0.87 [facility] Comment on above: Order Comment: Speci men Type: BLOOD SPECIMEN Performed By: #### 5 7021-8 ####[facility]ATORYCLIA [id number] [address] Monocytes/100 WBC (Bld) 8.1 % Normal [facility] Comment on above: Order Comment: Speci men Type: BLOOD SPECIMEN Performed By: #### 5 7021-8 ####[facility]ATORYCLIA [id number] [address] [place] Neutrophils (Bld) [#/Vol] 7.74 10*3/uL High 1.45-7.50 [facility] Comment on above: Order Comment: Speci men Type: BLOOD SPECIMEN Performed By: #### 5 7021-8 ####[facility]ORYCLIA [id number] [address] Neutrophils/100 WBC (Bld) 76.3 % Normal [facility] Comment on above: Order Comment: Speci men Type: BLOOD SPECIMEN Performed By: #### 5 7021-8 ####[facility]ORYCLIA [id number] [address] [place] Nucleated RBC (Bld) [#/Vol] 10*3/uL Normal <0.01 [facility] Comment on above: Order Comment: Speci men Type: BLOOD SPECIMEN Performed By: #### 5 7021-8 ####[facility]ORATORYCLIA [id number] [address] Nucleated RBC/100 WBC (Bld) [Ratio] 0.0 /100 WBC Normal 0.0 [facility] Comment on above: Order Comment: Speci men Type: BLOOD SPECIMEN Performed By: #### 5 7021-8 ####[facility]ORATORYCLIA [id number] [address] Platelet mean volume (Bld) [Entitic vol] 10.4 fL Normal 9.0-12.7 [facility] Comment on above: Order Comment: Speci men Type: BLOOD SPECIMEN Performed By: #### 5 7021-8 ####[facility]ORATORYCLIA [id number] [address] Platelets (Bld) [#/Vol] 236 10*3/uL Normal 150-400 [facility] Comment on above: Order Comment: Speci men Type: BLOOD SPECIMEN Performed By: #### 5 7021-8 ####[facility]ORYCLIA [id number] [address] RBC (Bld) [#/Vol] 4.50 10*6/uL Normal 4.20-6.00 [facility] Comment on above: Order Comment: Speci men Type: BLOOD SPECIMEN Performed By: #### 5 7021-8 ####[facility]ORYCLIA [id number] [address] WBC (Bld) [#/Vol] 10.14 10*3/uL Normal 3.70-11.00 [facility] Comment on above: Order Comment: Speci men Type: BLOOD SPECIMEN Performed By: #### 5 7021-8 ####[facility]ORATORYCLIA [id number] [address] CBC panel Auto (Bld)on 06-07 Erythrocyte distribution width (RBC) [Ratio] 15.8 % High 11.5-15.0 [facility] Comment on above: Order Comment: Speci men Type: BLOOD SPECIMEN Performed By: #### 5 8410-2 ####[facility] LABORATORYCLIA [id number] [address] Hematocrit (Bld) [Volume fraction] 40.0 % Normal 39.0-51.0 [facility] Comment on above: Order Comment: Speci men Type: BLOOD SPECIMEN Performed By: #### 5 8410-2 ####[facility] LABORATORYCLIA [id number] [address] Hemoglobin (Bld) [Mass/Vol] 12.3 g/dL Low 13.0-17.0 [facility] Comment on above: Order Comment: Speci men Type: BLOOD SPECIMEN Performed By: #### 5 8410-2 ####[facility] LABORATORYCLIA [id number] [address] MCH (RBC) [Entitic mass] 27.3 pg Normal 26.0-34.0 [facility] Comment on above: Order Comment: Speci men Type: BLOOD SPECIMEN Performed By: #### 5 8410-2 ####[facility] LABORATORYCLIA [id number] [address] MCHC (RBC) [Mass/Vol] 30.8 g/dL Normal 30.5-36.0 [facility] Comment on above: Order Comment: Speci men Type: BLOOD SPECIMEN Performed By: #### 5 8410-2 ####[facility] LABORATORYCLIA [id number] [address] MCV (RBC) [Entitic vol] 88.7 fL Normal 80.0-100.0 [facility] Comment on above: Order Comment: Speci men Type: BLOOD SPECIMEN Performed By: #### 5 8410-2 ####[facility] LABORATORYCLIA [id number] [address] Nucleated RBC (Bld) [#/Vol] 10*3/uL Normal <0.01 [facility] Comment on above: Order Comment: Speci men Type: BLOOD SPECIMEN Performed By: #### 5 8410-2 ####[facility] LABORATORYCLIA [id number] [address] Platelet mean volume (Bld) [Entitic vol] 10.0 fL Normal 9.0-12.7 [facility] Comment on above: Order Comment: Speci men Type: BLOOD SPECIMEN Performed By: #### 5 8410-2 ####[facility] LABORATORYCLIA [id number] [address] OF [facility] Platelets (Bld) [#/Vol] 234 10*3/uL Normal 150-400 [facility] Comment on above: Order Comment: Speci men Type: BLOOD SPECIMEN Performed By: #### 5 8410-2 ####[facility] LABORATORYCLIA [id number] [address] RBC (Bld) [#/Vol] 4.51 10*6/uL Normal 4.20-6.00 [facility] Comment on above: Order Comment: Speci men Type: BLOOD SPECIMEN Performed By: #### 5 8410-2 ####[facility] LABORATORYCLIA [id number] [address] WBC (Bld) [#/Vol] 11.47 10*3/uL High 3.70-11.00 [facility] Comment on above: Order Comment: Speci men Type: BLOOD SPECIMEN Performed By: #### 5 8410-2 ####[facility] LABORATORYCLIA [id number] [address] CONSULT PROGon 06-07-2021 CONSULT PROG Normal [facility] CONSULT PROG Normal [facility] CSF MANUAL DIFFon 06-07-2021 DIF TTL, CSF 92 cells counted Normal [facility] Comment on above: Order Comment: Speci men Type: CEREBROSPINAL FLUID Performed By: #### 3 4563-7, [id number], [id number] ####[facility]ATORYCLIA [id number] [place], [place] [address] [place] [address] [place] EOSIN%, CSF 1 % Normal [facility] Comment on above: Order Comment: Speci men Type: CEREBROSPINAL FLUID Performed By: #### 3 4563-7, [id number], [id number] ####[facility]ATORYCLIA [id number] [place], [place] [address] [place] [address] [place] LYMPH%, CSF 21 % Low 50-90 [facility] Comment on above: Order Comment: Speci men Type: CEREBROSPINAL FLUID Performed By: #### 3 4563-7, [id number], [id number] ####[facility]ATORYCLIA [id number] [place] [address] [place] MACRO%, CSF 27 % High <1 [facility] Comment on above: Order Comment: Speci men Type: CEREBROSPINAL FLUID Result Comment: Tati ected result: Previously reported as 22 % on 06/07/2021 at 1:49 PM EST. Performed By: #### 3 4563-7, [id number], [id number] ####[facility]ATORYCLIA [id number] [place] [address] [place] MONO%, CSF 36 % Normal 10-50 [facility] Comment on above: Order Comment: Speci men Type: CEREBROSPINAL FLUID Performed By: #### 3 4563-7, [id number], [id number] ####[facility]ATORYCLIA [id number] [place] [address] [place] NEUT%, CSF 11 % High 0-3 [facility] Comment on above: Order Comment: Speci men Type: CEREBROSPINAL FLUID Performed By: #### 3 4563-7, [id number], [id number] ####[facility]ATORYCLIA [id number] [place], [place] [address] [place] [address] [place] OTHER CL%, CSF 4 % Normal [facility] Comment on above: Order Comment: Speci men Type: CEREBROSPINAL FLUID Result Comment: Path review to follow.Corrected result: Previously reported as 10 % on 06/07/2021 at 1:49 PM EST. Performed By: #### 3 4563-7, [id number], [id number] ####[facility] LABORATORYCLIA [id number] [address] CSF PATHOLOGIST INTERP (LAB REFLEX ORDER-NO BILL)on 06-07-2021 CSF STAFF REVIEW Negative for maligna nt cells. Rare immature myeloid or ventricular lining cells. Normal [facility] Comment on above: Order Comment: Speci men Type: CEREBROSPINAL FLUID Performed By: #### 3 4563-7, [id number], [id number] ####[facility]ATORYCLIA [id number] [address] Pathologist name Reviewed by Eloise rebolledo MD [facility] Comment on above: Order Comment: Speci men Type: CEREBROSPINAL FLUID Performed By: #### 3 4563-7, [id number], [id number] ####[facility] LABORATORYCLIA [id number] [address] BRAIN WO IVCONon 06-07-19 CT BRAIN WO IVCON Normal [facility] CT BRAIN WO IVCON Normal [facility] Cell count panel (CSF)on Clarity (CSF) Clear Normal Clear [facility] Comment on above: Order Comment: Speci men Type: CEREBROSPINAL FLUID Performed By: #### 3 4563-7, [id number], [id number] ####[facility] LABORATORYCLIA [id number] [address] Clarity (Unsp spec) Not Indicated Normal Clear [facility] Comment on above: Order Comment: Speci men Type: CEREBROSPINAL FLUID Performed By: #### 3 4563-7, [id number], [id number] ####[facility]ORYCLIA [id number] [address] Color (CSF) Colorless Normal Colorless [facility] Comment on above: Order Comment: Speci men Type: CEREBROSPINAL FLUID Performed By: #### 3 4563-7, [id number], [id number] ####[facility]ATORYCLIA [id number] [address] Color (Spun CSF) Not Indicated Normal Colorless [facility] Comment on above: Order Comment: Speci men Type: CEREBROSPINAL FLUID Performed By: #### 3 4563-7, [id number], RNI5711 ####[facility]ORATORYCLIA [id number] [address] CSF TUBE NUMBER Sterile Container Normal [facility] Comment on above: Order Comment: Speci men Type: CEREBROSPINAL FLUID Performed By: #### 3 4563-7, IGS7303, VVP3598 ####[facility]ORATORYCLIA [id number] [address] RBC Manual cnt (CSF) [#/Vol] 42 cells/uL High 0-5 [facility] Comment on above: Order Comment: Speci men Type: CEREBROSPINAL FLUID Performed By: #### 3 4563-7, [id number], [id number] ####[facility]ORATORYCLIA [id number] [address] WBC Manual cnt (CSF) [#/Vol] 1 cells/uL Normal 0-5 [facility] Comment on above: Order Comment: Speci men Type: CEREBROSPINAL FLUID Performed By: #### 3 4563-7, [id number], [id number] ####[facility]ORATORYCLIA [id number] [address] Glucose CSF-mCncon 2 Glucose (CSF) [Mass/Vol] [...] Glucose HK (GLUC3) [package insert V 12.0 Gambian]. [employer], [place], [place]. September 2015. 2. Mihcelle Moore, Loki H. (2015). Chapter 7: Glucose and Lactate. F. Irina rose al.(eds.), Cerebrospinal Fluid in Clinical Neurology. [place]: [employer]. Performed By: #### 2 880-3, 2342-4 ####[facility] LABORATORYCLIA [id number] [address] Lactate (Bld) [Moles/Vol]on 06-07-2021 Lactate [Moles/Vol] 0.9 mmol/L Normal 0.5-2.2 [facility] Comment on above: Order Comment: Speci men Type: BLOOD SPECIMEN Performed By: #### 3 2693-4 ####[facility]ORATORYCLIA [id number] [address] [place] Lipase SerPl-cCncon 06-07-19 22 Lipase [Catalytic activity/Vol] 35 U/L Normal 16-61 [facility] Comment on above: Order Comment: Speci men Type: BLOOD SPECIMEN Performed By: #### 3 040-3, PROCAL ####[facility]ORATORYCLIA [id number] [address] Magnesium SerPl-mCncon 06-07 Magnesium [Mass/Vol] 2.7 mg/dL High 1.7-2.3 [facility] Comment on above: Order Comment: Speci men Type: BLOOD SPECIMEN Performed By: #### 1 9123-9, 2777-1, 77002-8 ####[facility]ORATORYCLIA [id number] [address] PROCALCITONIN (LAB)on 2021 Procalcitonin [Mass/Vol] 0.13 ng/mL High <0.09 [facility] Comment on above: Order Comment: Speci men Type: BLOOD SPECIMEN Result Comment: For a guided interpretation of test results, please visit the Change in Procalcitonin Calculator, [email or web address]. Performed By: #### 3 040-3, PROCAL ####[facility] LABORATORYCLIA [id number] [address] OF [facility] Phosphate SerPl-mCncon 06-07 Phosphate [Mass/Vol] 1.9 mg/dL Low 2.7-4.8 [facility] Comment on above: Order Comment: Speci men Type: BLOOD SPECIMEN Performed By: #### 1 9123-9, 2777-1, 18012-2 ####[facility]ORATORYCLIA [id number] [address] Prot CSF-mCncon 06-07-2021 Protein (CSF) [Mass/Vol] 33 mg/dL Normal 15-45 [facility] Comment on above: Order Comment: Speci men Type: CEREBROSPINAL FLUID Performed By: #### 2 880-3, 2342-4 ####[facility]ORATORYCLIA [id number] [address] SARS-CoV-2 RNA Resp Ql MEGAN+p robeon 06-07-2021 SARS-CoV-2 (COVID-19) RNA MEGAN+probe Ql (Resp) COVID 19 RESULT: SARS-CoV-2 (Agent of COVID-19) Not Detected by PCR. This test has been authorized by FDA under an Emergency Use Authorization (EUA). [facility] Comment on above: Performed By: #### 9 4500-6 ####[facility]ORATORYCLIA [id number] [address] TYPE AND SCREENon 06-07-[address] [facility] Comment on above: Order Comment: Speci men Type: BLOOD SPECIMEN Performed By: #### T SCR ####[facility]LO[facility] BANKCLIA [id number] [address] HISTORICAL AB SCR STATUS Negative [facility] Comment on above: Order Comment: Speci men Type: BLOOD SPECIMEN Performed By: #### T SCR ####[facility]LO[facility] BANKCLIA [id number] [address] Rh Nom (Bld) Positive [facility] Comment on above: Order Comment: Speci men Type: BLOOD SPECIMEN Performed By: #### T SCR ####[facility] BLOOD BANKCLIA [id number] [address] TYPE AND SCREEN EXPIRATION 06/10/2021 23:59 Normal [facility] Comment on above: Order Comment: Speci men Type: BLOOD SPECIMEN Performed By: #### T SCR ####[facility] BLOOD BANKCLIA [id number] [address] Vancomycin random [Mass/Vol] on 06-07-2021 Vancomycin [Mass/Vol] 16.5 ug/mL Normal 10.0-20.0 [facility] Comment on above: Order Comment: Speci men Type: BLOOD SPECIMEN Result Comment: Refe rence ranges and high/low indicator flags are provided as general guidelines only. The treating physician must determine appropriate target levels/dosing based on the specific clinical situation. Performed By: #### 4 091-5 ####[facility] LABORATORYCLIA [id number] [address] XR CHEST 1V FRONTAL PORTon 0 06-07-2021 XR CHEST 1V FRONTAL PORT Normal [facility] Basic metabolic 2000 panelon 06-06-2021 Anion gap [Moles/Vol] 11 mmol/L Normal 9-18 [facility] Comment on above: Order Comment: Speci men Type: BLOOD SPECIMEN Performed By: #### 2 4321-2, , 2776-05 ####[facility]ORATORYCLIA [id number] [address] Calcium [Mass/Vol] 8.6 mg/dL Normal 8.5-10.2 [facility] Comment on above: Order Comment: Speci men Type: BLOOD SPECIMEN Performed By: #### 2 4321-2, , 2776-05 ####[facility]ORATORYCLIA [id number] [address] Chloride [Moles/Vol] 108 mmol/L High 97-105 [facility] Comment on above: Order Comment: Speci men Type: BLOOD SPECIMEN Performed By: #### 2 4321-2, , 2776-05 ####[facility] LABORATORYCLIA [id number] [place] [address] [place] CO2 [Moles/Vol] 25 mmol/L Normal 22-30 [facility] Comment on above: Order Comment: Speci men Type: BLOOD SPECIMEN Performed By: #### 2 4321-2, , 2776-05 ####[facility] LABORATORYCLIA [id number] [place] [id number] [place] Creatinine [Mass/Vol] 0.76 mg/dL Normal 0.73-1.22 [facility] Comment on above: Order Comment: Speci men Type: BLOOD SPECIMEN Performed By: #### 2 4321-2, , 2776-05 ####[facility]CL[facility] [id number] [address] [place] GFR/1.73 sq M.predicted [...] Performed By: #### 2 4321-2, , 2776-05 ####[facility] LABORATORYCLIA [id number] [place] [id number] [place] Glucose [Mass/Vol] 116 mg/dL [...] Performed By: #### 2 4321-2, , 2776-05 ####[facility] LABORATORYCLIA [id number] [address] STATES OF [facility] Potassium [Moles/Vol] 3.5 mmol/L Low 3.7-5.1 [facility] Comment on above: Order Comment: Speci men Type: BLOOD SPECIMEN Performed By: #### 2 4321-2, , 2776-05 ####[facility] LABORATORYCLIA [id number] [address] STATES OF [facility] Sodium [Moles/Vol] 144 mmol/L Normal 136-144 [facility] Comment on above: Order Comment: Speci men Type: BLOOD SPECIMEN Performed By: #### 2 4321-2, , 2776-05 ####[facility] LABORATORYCLIA [id number] [address] [place] Urea nitrogen [Mass/Vol] 31 mg/dL High 9-24 [facility] Comment on above: Order Comment: Speci men Type: BLOOD SPECIMEN Performed By: #### 2 4321-2, , 2776-05 ####[facility] LABORATORYCLIA [id number] [address] [place] CASE MANAGEMon 06-06-2021 CASE MANAGEM Normal [facility] CBC panel Auto (Bld)on 06-06 Erythrocyte distribution width (RBC) [Ratio] 15.8 % High 11.5-15.0 [facility] Comment on above: Order Comment: Speci men Type: BLOOD SPECIMEN Performed By: #### 5 8410-2 ####[facility]ORATORYCLIA [id number] [address] Hematocrit (Bld) [Volume fraction] 39.5 % Normal 39.0-51.0 [facility] Comment on above: Order Comment: Speci men Type: BLOOD SPECIMEN Performed By: #### 5 8410-2 ####[facility]ORATORYCLIA [id number] [address] Hemoglobin (Bld) [Mass/Vol] 12.2 g/dL Low 13.0-17.0 [facility] Comment on above: Order Comment: Speci men Type: BLOOD SPECIMEN Performed By: #### 5 8410-2 ####[facility]ORATORYCLIA [id number] [address] MCH (RBC) [Entitic mass] 27.8 pg Normal 26.0-34.0 [facility] Comment on above: Order Comment: Speci men Type: BLOOD SPECIMEN Performed By: #### 5 8410-2 ####[facility]ORATORYCLIA [id number] [address] MCHC (RBC) [Mass/Vol] 30.9 g/dL Normal 30.5-36.0 [facility] Comment on above: Order Comment: Speci men Type: BLOOD SPECIMEN Performed By: #### 5 8410-2 ####[facility] LABORATORYCLIA [id number] [address] MCV (RBC) [Entitic vol] 90.0 fL Normal 80.0-100.0 [facility] Comment on above: Order Comment: Speci men Type: BLOOD SPECIMEN Performed By: #### 5 8410-2 ####[facility]ORATORYCLIA [id number] [address] Nucleated RBC (Bld) [#/Vol] 10*3/uL Normal <0.01 [facility] Comment on above: Order Comment: Speci men Type: BLOOD SPECIMEN Performed By: #### 5 8410-2 ####[facility]ORATORYCLIA [id number] [address] Platelet mean volume (Bld) [Entitic vol] 10.4 fL Normal 9.0-12.7 [facility] Comment on above: Order Comment: Speci men Type: BLOOD SPECIMEN Performed By: #### 5 8410-2 ####[facility] LABORATORYCLIA [id number] [address] OF [facility] Platelets (Bld) [#/Vol] 236 10*3/uL Normal 150-400 [facility] Comment on above: Order Comment: Speci men Type: BLOOD SPECIMEN Performed By: #### 5 8410-2 ####[facility]ORATORYCLIA [id number] [address] OF [facility] RBC (Bld) [#/Vol] 4.39 10*6/uL Normal 4.20-6.00 [facility] Comment on above: Order Comment: Speci men Type: BLOOD SPECIMEN Performed By: #### 5 8410-2 ####[facility]ORATORYCLIA [id number] [address] WBC (Bld) [#/Vol] 9.74 10*3/uL Normal 3.70-11.00 [facility] Comment on above: Order Comment: Speci men Type: BLOOD SPECIMEN Performed By: #### 5 8410-2 ####[facility]ORATORYCLIA [id number] [address] CONSULT PROGon 06-06-2021 CONSULT PROG Normal [facility] CONSULT PROG Normal [facility] Magnesium SerPl-mCncon 06-06 Magnesium [Mass/Vol] 2.5 mg/dL High 1.7-2.3 [facility] Comment on above: Order Comment: Speci men Type: BLOOD SPECIMEN Performed By: #### 2 4321-2, 00514-9, 2777-1 ####[facility] LABORATORYCLIA [id number] [place] [address] [place] PT panel Coag [...] al. Chest 2012, 141:7S-47SNishimura RA, et al. [facility] 2017, 70: 252-289 Performed By: #### 3 4528-0, 87881-8 ####[facility] LABORATORYCLIA [id number] [place] [id number] [place] PT Coag (PPP) [Time] 11.4 s Normal 9.7-13.0 [facility] Comment on above: Order Comment: Speci men Type: BLOOD SPECIMEN Performed By: #### 3 4528-0, 18181-6 ####[facility] LABORATORYCLIA [id number] [place] [id number] [place] Phosphate SerPl-mCncon 06-06 Phosphate [Mass/Vol] 2.3 mg/dL Low 2.7-4.8 [facility] Comment on above: Order Comment: Speci men Type: BLOOD SPECIMEN Performed By: #### 2 4321-2, 36948-7, 2777-1 ####[facility] LABORATORYCLIA [id number] [address] THROMBOGRAPH HEPARINASE PANE Kiel 06-06-2021 Clot angle after addition of heparinase TEG (Bld) [Angle] 70.2 degrees Normal 47.0-74.0 [facility] Comment on above: Order Comment: Speci men Type: BLOOD SPECIMEN Performed By: #### T EGHPP ####[facility] LABORATORYCLIA [id number] [address] Clot Lysis 30 Min post maximum clot amplitude TEG (Bld) [Length fraction] 0.0 % Normal 0.0-8.0 [facility] Comment on above: Order Comment: Speci men Type: BLOOD SPECIMEN Performed By: #### T EGHPP ####[facility] LABORATORYCLIA [id number] [address] Clotting time after addition of heparinase TEG (Bld) 5.7 minutes Normal 4.0-10.0 [facility] Comment on above: Order Comment: Speci men Type: BLOOD SPECIMEN Performed By: #### T EGHPP ####[facility] LABORATORYCLIA [id number] [address] Coagulation index TEG Qn (Bld) 1.2 Normal -4.6-3.2 [facility] Comment on above: Order Comment: Speci men Type: BLOOD SPECIMEN Result Comment: The Coagulation Index, a secondary parameter, is labeled by the sales floor associate as for "research use only" and is used per the sales floor associate's instructions. Its performance characteristics were determined by [facility]'s Isrrael Perez [facility] Pathology and Laboratory Medicine [place] in a manner consistent with CLIA requirements. This test has not been cleared by the U.S. Food and Drug Administration. Performed By: #### T EGHPP ####[facility] LABORATORYCLIA [id number] [address] Maximum clot firmness after addition of heparinase TEG (Bld) [Length] 64.0 mm Normal 51.0-75.0 [facility] Comment on above: Order Comment: Speci men Type: BLOOD SPECIMEN Performed By: #### T EGHPP ####[facility] LABORATORYCLIA [id number] [address] Vancomycin random [Mass/Vol] on 06-06-2021 Vancomycin [Mass/Vol] 17.4 ug/mL Normal 10.0-20.0 [facility] Comment on above: Order Comment: Speci men Type: BLOOD SPECIMEN Result Comment: Refe rence ranges and high/low indicator flags are provided as general guidelines only. The treating physician must determine appropriate target levels/dosing based on the specific clinical situation. Performed By: #### 4 091-5 ####[facility] LABORATORYCLIA [id number] [address] Vancomycin [Mass/Vol] 13.5 ug/mL Normal 10.0-20.0 [facility] Comment on above: Order Comment: Speci men Type: BLOOD SPECIMEN Result Comment: Refe rence ranges and high/low indicator flags are provided as general guidelines only. The treating physician must determine appropriate target levels/dosing based on the specific clinical situation. Performed By: #### 4 091-5 ####[facility] LABORATORYCLIA [id number] [address] aPTT PPPon 06-06-2021 aPTT Coag (PPP) [Time] 27.8 s Normal 23.0-32.4 [facility] Comment on above: Order Comment: Speci men Type: BLOOD SPECIMEN Performed By: #### 3 4528-0, 11679-9 ####[facility] LABORATORYCLIA [id number] [address] Basic metabolic 2000 panelon 06-05-2021 Anion gap [Moles/Vol] 11 mmol/L Normal 9-18 [facility] Comment on above: Order Comment: Speci men Type: BLOOD SPECIMEN Performed By: #### 1 9123-9, 77163-2, 2777-1 ####[facility] LABORATORYCLIA [id number] [address] STATES OF [facility] Calcium [Mass/Vol] 8.6 mg/dL Normal 8.5-10.2 [facility] Comment on above: Order Comment: Speci men Type: BLOOD SPECIMEN Performed By: #### 1 9123-9, 02374-2, 2776- ####[facility] LABORATORYCLIA [id number] [address] Chloride [Moles/Vol] 108 mmol/L High 97-105 [facility] Comment on above: Order Comment: Speci men Type: BLOOD SPECIMEN Performed By: #### 1 9123-9, 15298-2, 2776- ####[facility] LABORATORYCLIA [id number] [address] CO2 [Moles/Vol] 25 mmol/L Normal 22-30 [facility] Comment on above: Order Comment: Speci men Type: BLOOD SPECIMEN Performed By: #### 1 9123-9, 29672-4, 2776- ####[facility] LABORATORYCLIA [id number] [address] STATES OF [facility] Creatinine [Mass/Vol] 0.77 mg/dL Normal 0.73-1.22 [facility] Comment on above: Order Comment: Speci men Type: BLOOD SPECIMEN Performed By: #### 1 9123-9, 41509-8, 2776- ####[facility] LABORATORYCLIA [id number] [address] [place] GFR/1.73 sq M.predicted [...] actual GFR. Performed By: #### 1 9123-9, 27737-4, 2776-05 ####[facility] LABORATORYCLIA [id number] [place] [address] [place] Glucose [Mass/Vol] 96 [...] Care. 2016.39(Suppl 1). Performed By: #### 1 239, , 2776-05 ####[facility] LABORATORYCLIA [id number] [place] [address] [place] Potassium [Moles/Vol] 3.9 mmol/L Normal 3.7-5.1 [facility] Comment on above: Order Comment: Speci men Type: BLOOD SPECIMEN Performed By: #### 1 23-9, 19187-6, 2776-05 ####[facility] LABORATORYCLIA [id number] [place] [address] [place] Sodium [Moles/Vol] 144 mmol/L Normal 136-144 [facility] Comment on above: Order Comment: Speci men Type: BLOOD SPECIMEN Performed By: #### 1 9123-9, 49043-9, 2776-05 ####[facility]ORATORYCLIA [id number] [address] Urea nitrogen [Mass/Vol] 26 mg/dL High 9-24 [facility] Comment on above: Order Comment: Speci men Type: BLOOD SPECIMEN Performed By: #### 1 9123-9, 36288-7, 2777-1 ####[facility]ATORYCLIA [id number] [address] CBC panel Auto (Bld)on 06-05 Erythrocyte distribution width (RBC) [Ratio] 15.9 % High 11.5-15.0 [facility] Comment on above: Order Comment: Speci men Type: BLOOD SPECIMEN Performed By: #### 5 8410-2 ####[facility]ORATORYCLIA [id number] [address] Hematocrit (Bld) [Volume fraction] 39.6 % Normal 39.0-51.0 [facility] Comment on above: Order Comment: Speci men Type: BLOOD SPECIMEN Performed By: #### 5 8410-2 ####[facility]ATORYCLIA [id number] [address] Hemoglobin (Bld) [Mass/Vol] 12.3 g/dL Low 13.0-17.0 [facility] Comment on above: Order Comment: Speci men Type: BLOOD SPECIMEN Performed By: #### 5 8410-2 ####[facility]ATORYCLIA [id number] [address] MCH (RBC) [Entitic mass] 28.1 pg Normal 26.0-34.0 [facility] Comment on above: Order Comment: Speci men Type: BLOOD SPECIMEN Performed By: #### 5 8410-2 ####[facility]ATORYCLIA [id number] [address] MCHC (RBC) [Mass/Vol] 31.1 g/dL Normal 30.5-36.0 [facility] Comment on above: Order Comment: Speci men Type: BLOOD SPECIMEN Performed By: #### 5 8410-2 ####[facility]ATORYCLIA [id number] [address] MCV (RBC) [Entitic vol] 90.4 fL Normal 80.0-100.0 [facility] Comment on above: Order Comment: Speci men Type: BLOOD SPECIMEN Performed By: #### 5 8410-2 ####[facility]ATORYCLIA [id number] [address] Nucleated RBC (Bld) [#/Vol] 10*3/uL Normal <0.01 [facility] Comment on above: Order Comment: Speci men Type: BLOOD SPECIMEN Performed By: #### 5 8410-2 ####[facility]ATORYCLIA [id number] [address] Platelet mean volume (Bld) [Entitic vol] 10.5 fL Normal 9.0-12.7 [facility] Comment on above: Order Comment: Speci men Type: BLOOD SPECIMEN Performed By: #### 5 8410-2 ####[facility]ATORYCLIA [id number] [address] Platelets (Bld) [#/Vol] 224 10*3/uL Normal 150-400 [facility] Comment on above: Order Comment: Speci men Type: BLOOD SPECIMEN Performed By: #### 5 8410-2 ####[facility]ORATORYCLIA [id number] [address] OF [facility] RBC (Bld) [#/Vol] 4.38 10*6/uL Normal 4.20-6.00 [facility] Comment on above: Order Comment: Speci men Type: BLOOD SPECIMEN Performed By: #### 5 8410-2 ####[facility]ORATORYCLIA [id number] [address] WBC (Bld) [#/Vol] 9.66 10*3/uL Normal 3.70-11.00 [facility] Comment on above: Order Comment: Speci men Type: BLOOD SPECIMEN Performed By: #### 5 8410-2 ####[facility]ATORYCLIA [id number] [address] CONSULT PROGon 06-05-2021 CONSULT PROG Normal [facility] Gas and Carbon monoxide pane l (BldV)on 06-05-2021 Base excess Calc (BldV) [Moles/Vol] 1.8 mmol/L Normal 0-2 [facility] Comment on above: Order Comment: Speci men Type: VENOUS BLOOD SPECIMEN Performed By: #### 2 4344-4 ####[facility]ORATORYCLIA [id number] [address] Body temperature 100.4 [degF] Normal [facility] Comment on above: Order Comment: Speci men Type: VENOUS BLOOD SPECIMEN Performed By: #### 2 4344-4 ####[facility]ORATORYCLIA [id number] [address] CALCIUM IONIZED, PH CORRECTED 1.21 mmol/L Normal 1.08-1.30 [facility] Comment on above: Order Comment: Speci men Type: VENOUS BLOOD SPECIMEN Performed By: #### 2 4344-4 ####[facility]ATORYCLIA [id number] [address] Calcium.ionized (BldV) [Mass/Vol] 1.19 mmol/L Normal 1.08-1.30 [facility] Comment on above: Order Comment: Speci men Type: VENOUS BLOOD SPECIMEN Performed By: #### 2 4344-4 ####[facility]ATORYCLIA [id number] [address] Carboxyhemoglobin (BldV) [Mass fraction] 1.0 % Normal 0.0-2.0 [facility] Comment on above: Order Comment: Speci men Type: VENOUS BLOOD SPECIMEN Result Comment: Carb oxyhemoglobin Reference Range for Smokers: 2.0-8.0% Performed By: #### 2 4344-4 ####[facility]ORATORYCLIA [id number] [address] CO2 (BldV) [Partial pressure] 41 mm[Hg] Low 42-55 [facility] Comment on above: Order Comment: Speci men Type: VENOUS BLOOD SPECIMEN Performed By: #### 2 4344-4 ####[facility]ATORYCLIA [id number] [address] [facility] CO2 [Moles/Vol] 23.4 mmol/L Low 25-29 [facility] Comment on above: Order Comment: Speci men Type: VENOUS BLOOD SPECIMEN Performed By: #### 2 4344-4 ####[facility]ATORYCLIA [id number] [address] CO2 adjusted to patient's actual temperature (BldV) [Partial pressure] 43 mmHg Normal 42-55 [facility] Comment on above: Order Comment: Speci men Type: VENOUS BLOOD SPECIMEN Performed By: #### 2 4344-4 ####[facility]ORYCLIA [id number] [address] Glucose [Mass/Vol] 101 mg/dL Normal 60-105 [facility] Comment on above: Order Comment: Speci men Type: VENOUS BLOOD SPECIMEN Performed By: #### 2 4344-4 ####[facility]ATORYCLIA [id number] [address] OF [facility] HCO3 (Bld) [Moles/Vol] 26.0 mmol/L Normal 24-28 [facility] Comment on above: Order Comment: Speci men Type: VENOUS BLOOD SPECIMEN Performed By: #### 2 4344-4 ####[facility]ATORYCLIA [id number] [address] [place] Hematocrit (Bld) [Volume fraction] 38.4 % Low 39.0-51.0 [facility] Comment on above: Order Comment: Speci men Type: VENOUS BLOOD SPECIMEN Performed By: #### 2 4344-4 ####[facility]ATORYCLIA [id number] [address] [place] Hemoglobin (Bld) [Mass/Vol] 12.5 g/dL Low 13.0-17.0 [facility] Comment on above: Order Comment: Speci men Type: VENOUS BLOOD SPECIMEN Performed By: #### 2 4344-4 ####[facility]ATORYCLIA [id number] [place] [address] [place] Methemoglobin (Bld) [Mass fraction] % Normal 0.0-1.5 [facility] Comment on above: Order Comment: Speci men Type: VENOUS BLOOD SPECIMEN Performed By: #### 2 4344-4 ####[facility]ATORYCLIA [id number] [place] [address] [facility] [place] O2 THERAPY Ventilator Normal [facility] Comment on above: Order Comment: Speci men Type: VENOUS BLOOD SPECIMEN Performed By: #### 2 4344-4 ####[facility]ATORYCLIA [id number] [place] [address] [facility] [place] Oxygen (BldV) [Partial pressure] 44 mm[Hg] Normal 35-45 [facility] Comment on above: Order Comment: Speci men Type: VENOUS BLOOD SPECIMEN Performed By: #### 2 4344-4 ####[facility]ATORYCLIA [id number] [place] [address] [facility] [place] Oxygen adjusted to patient's actual temperature (BldV) [Partial pressure] 46.8 mmHg High 35-45 [facility] Comment on above: Order Comment: Speci men Type: VENOUS BLOOD SPECIMEN Performed By: #### 2 4344-4 ####[facility]ORYCLIA [id number] [place] [address] [facility] [place] Oxygen saturation in Blood 76.5 % Normal 60-85 [facility] Comment on above: Order Comment: Speci men Type: VENOUS BLOOD SPECIMEN Performed By: #### 2 4344-4 ####[facility]ATORYCLIA [id number] [place] [address] [facility] [place] Oxyhemoglobin (BldV) [Mass fraction] 75 % Normal 60-85 [facility] Comment on above: Order Comment: Speci men Type: VENOUS BLOOD SPECIMEN Performed By: #### 2 4344-4 ####[facility]ORYCLIA [id number] [address] pH (BldV) 7.42 [pH] Normal 7.32-7.42 [facility] Comment on above: Order Comment: Speci men Type: VENOUS BLOOD SPECIMEN Performed By: #### 2 4344-4 ####[facility]ATORYCLIA [id number] [address] pH adjusted to patient's actual temperature (BldV) 7.40 Normal 7.32-7.42 [facility] Comment on above: Order Comment: Speci men Type: VENOUS BLOOD SPECIMEN Performed By: #### 2 4344-4 ####[facility]ATORYCLIA [id number] [address] Potassium [Moles/Vol] 3.7 mmol/L Normal 3.5-5.0 [facility] Comment on above: Order Comment: Speci men Type: VENOUS BLOOD SPECIMEN Performed By: #### 2 4344-4 ####[facility]ORATORYCLIA [id number] [address] Sodium [Moles/Vol] 141 mmol/L Normal 136-144 [facility] Comment on above: Order Comment: Speci men Type: VENOUS BLOOD SPECIMEN Performed By: #### 2 4344-4 ####[facility]ATORYCLIA [id number] [address] [place] Magnesium SerPl-mCncon 06-05 Magnesium [Mass/Vol] 2.3 mg/dL Normal 1.7-2.3 [facility] Comment on above: Order Comment: Speci men Type: BLOOD SPECIMEN Performed By: #### 1 9123-9, 61994-5, 2777-1 ####[facility]ORYCLIA [id number] [address] [place] Phosphate SerPl-mCncon 06-05 Phosphate [Mass/Vol] 2.9 mg/dL Normal 2.7-4.8 [facility] Comment on above: Order Comment: Speci men Type: BLOOD SPECIMEN Performed By: #### 1 9123-9, 31948-0, 2777-1 ####[facility]ATORYCLIA [id number] [place] [address] [place] Vancomycin random [Mass/Vol] on 06-05-2021 Vancomycin [Mass/Vol] 23.2 ug/mL High 10.0-20.0 [facility] Comment on above: Order Comment: Speci men Type: BLOOD SPECIMEN Result Comment: Refe rence ranges and high/low indicator flags are provided as general guidelines only. The treating physician must determine appropriate target levels/dosing based on the specific clinical situation. Performed By: #### 4 091-5 ####[facility]ORATORYCLIA [id number] [place] [address] [place] (1,3)-E-T-QLYVJYfk 2 (1,3) B-D GLUCAN <31 Normal <60 [facility] Comment on above: Order Comment: Speci [facility] Type: BLOOD SPECIMEN Performed By: #### B DGLUC ####[facility]FER[facility] LABCLIA [id number] [id number] [address] [place] (1,3) B-D GLUCAN, QUAL Negative Normal NEGAT [facility] Comment on above: Order Comment: Speci men Type: BLOOD SPECIMEN Result Comment: Cert ain fungi, such as the genus Cryptococcus which produces very low levels of (1,3)-dcgk-P-zvuqmb, may not result in serum (1,3)-tvtf-I-sxmwrj sufficiently elevated so as to be detected by the assay. Infections with fungi of the order Mucorales such as Absidia, Mucor and Rhizopus which are not known to produce (1,3)-gywg-Z-ksraeo, are also observed to yield low serum (1,3)-vngr-F-awegko titers.In addition, the yeast phase of Blastomyces dermatitidis produces little (1,3)-amfy-E-ophtza and may not be detected by the assay. Performed By: #### B DGLUC ####[facility] REFERENCE LABCLIA [id number] [place] C71[place] [address] [place] ALLIED HEALTHon 06-04-2021 ALLIED HEALTH Normal [facility] ALLIED HEALTH Normal [facility] ARTERIAL BLOOD GASESon 06-04 Base excess Calc (Bld) [Moles/Vol] 3 mmol/L High 0-2 [facility] Comment on above: Order Comment: Speci men Type: ARTERIAL BLOOD SPECIMEN Performed By: #### A LLBG ####[facility]ORATORYCLIA [id number] [address] Body temperature 98.06 [degF] Normal [facility] Comment on above: Order Comment: Speci men Type: ARTERIAL BLOOD SPECIMEN Performed By: #### A LLBG ####[facility]ORATORYCLIA [id number] [address] CALCIUM IONIZED, PH CORRECTED 1.19 mmol/L Normal 1.08-1.30 [facility] Comment on above: Order Comment: Speci men Type: ARTERIAL BLOOD SPECIMEN Performed By: #### A LLBG ####[facility]ORATORYCLIA [id number] [address] Calcium.ionized (BldV) [Mass/Vol] 1.14 mmol/L Normal 1.08-1.30 [facility] Comment on above: Order Comment: Speci men Type: ARTERIAL BLOOD SPECIMEN Performed By: #### A LLBG ####[facility]ORATORYCLIA [id number] [address] Carboxyhemoglobin (BldA) [Mass fraction] 1.2 % Normal 0.0-2.0 [facility] Comment on above: Order Comment: Speci men Type: ARTERIAL BLOOD SPECIMEN Result Comment: Carb oxyhemoglobin Reference Range for Smokers: 2.0-8.0% Performed By: #### A LLBG ####[facility]ORATORYCLIA [id number] [address] CO2 (Bld) [Partial pressure] 35 mm Hg Low 36-46 [facility] Comment on above: Order Comment: Speci men Type: ARTERIAL BLOOD SPECIMEN Performed By: #### A LLBG ####[facility]ATORYCLIA [id number] [address] CO2 [Moles/Vol] 23.2 mmol/L Normal 22-28 [facility] Comment on above: Order Comment: Speci men Type: ARTERIAL BLOOD SPECIMEN Performed By: #### A LLBG ####[facility]ATORYCLIA [id number] [address] CO2 adjusted to patient's actual temperature (Bld) [Partial pressure] 34 mmHg Low 36-46 [facility] Comment on above: Order Comment: Speci men Type: ARTERIAL BLOOD SPECIMEN Performed By: #### A LLBG ####[facility]ORATORYCLIA [id number] [address] Glucose [Mass/Vol] 115 mg/dL High 60-105 [facility] Comment on above: Order Comment: Speci men Type: ARTERIAL BLOOD SPECIMEN Performed By: #### A LLBG ####[facility]ATORYCLIA [id number] [address] HCO3 (Bld) [Moles/Vol] 26 mmol/L Normal 22-26 [facility] Comment on above: Order Comment: Speci men Type: ARTERIAL BLOOD SPECIMEN Performed By: #### A LLBG ####[facility]ATORYCLIA [id number] [address] [place] Hematocrit (Bld) [Volume fraction] 35.3 % Low 39.0-51.0 [facility] Comment on above: Order Comment: Speci men Type: ARTERIAL BLOOD SPECIMEN Performed By: #### A LLBG ####[facility]ATORYCLIA [id number] [address] [place] Hemoglobin (Bld) [Mass/Vol] 11.5 g/dL Low 13.0-17.0 [facility] Comment on above: Order Comment: Speci men Type: ARTERIAL BLOOD SPECIMEN Performed By: #### A LLBG ####[facility]ATORYCLIA [id number] [address] Methemoglobin (Bld) [Mass fraction] % Normal 0.0-1.5 [facility] Comment on above: Order Comment: Speci men Type: ARTERIAL BLOOD SPECIMEN Performed By: #### A LLBG ####[facility]ATORYCLIA [id number] [address] [place] O2 THERAPY Ventilator Normal [facility] Comment on above: Order Comment: Speci men Type: ARTERIAL BLOOD SPECIMEN Performed By: #### A LLBG ####[facility]ATORYCLIA [id number] [address] Oxygen (Bld) [Partial pressure] 66 mm Hg Low 85-95 [facility] Comment on above: Order Comment: Speci men Type: ARTERIAL BLOOD SPECIMEN Performed By: #### A LLBG ####[facility]ATORYCLIA [id number] [address] Oxygen adjusted to patient's actual temperature (Bld) [Partial pressure] 64.3 mmHg Low 85-95 [facility] Comment on above: Order Comment: Speci men Type: ARTERIAL BLOOD SPECIMEN Performed By: #### A LLBG ####[facility]ORYCLIA [id number] [address] OXYGEN SATURATION, ARTERIAL 95 % Normal 95-98 [facility] Comment on above: Order Comment: Speci men Type: ARTERIAL BLOOD SPECIMEN Performed By: #### A LLBG ####[facility]ATORYCLIA [id number] [address] Oxyhemoglobin (BldA) [Mass fraction] 93 % Low 95-98 [facility] Comment on above: Order Comment: Speci men Type: ARTERIAL BLOOD SPECIMEN Performed By: #### A LLBG ####[facility]ATORYCLIA [id number] [place] [address] pH (Bld) 7.49 [pH] High 7.35-7.45 [facility] Comment on above: Order Comment: Speci men Type: ARTERIAL BLOOD SPECIMEN Performed By: #### A LLBG ####[facility]ATORYCLIA [id number] [address] pH adjusted to patient's actual temperature (Bld) 7.49 High 7.35-7.45 [facility] Comment on above: Order Comment: Speci men Type: ARTERIAL BLOOD SPECIMEN Performed By: #### A LLBG ####[facility]ORATORYCLIA [id number] [address] Potassium [Moles/Vol] 2.8 mmol/L Low 3.5-5.0 [facility] Comment on above: Order Comment: Speci men Type: ARTERIAL BLOOD SPECIMEN Performed By: #### A LLBG ####[facility]ORATORYCLIA [id number] [address] Bas Metab 2000 Pnl SerPlon 0 06-04-2021 Sodium [Moles/Vol] 143 mmol/L Normal 136-144 [facility] Comment on above: Order Comment: Speci men Type: BLOOD SPECIMEN Performed By: #### 2 777-1, , 94002-4 ####[facility]ORATORYCLIA [id number] [address] Order Comment: Speci men Type: ARTERIAL BLOOD SPECIMEN Performed By: #### A LLBG ####[facility]ORATORYCLIA [id number] [address] Basic metabolic 2000 panelon 06-04-2021 Anion gap [Moles/Vol] 11 mmol/L Normal 9-18 [facility] Comment on above: Order Comment: Speci men Type: BLOOD SPECIMEN Performed By: #### 2 777-1, , 46720-8 ####[facility]ORATORYCLIA [id number] [address] Calcium [Mass/Vol] 8.5 mg/dL Normal 8.5-10.2 [facility] Comment on above: Order Comment: Speci men Type: BLOOD SPECIMEN Performed By: #### 2 777-1, , ####[facility]ORATORYCLIA [id number] [address] [place] Chloride [Moles/Vol] 107 mmol/L High 97-105 [facility] Comment on above: Order Comment: Speci men Type: BLOOD SPECIMEN Performed By: #### 2 777-1, , ####[facility]ORATORYCLIA [id number] [address] STATES OF [facility] CO2 [Moles/Vol] 25 mmol/L Normal 22-30 [facility] Comment on above: Order Comment: Speci men Type: BLOOD SPECIMEN Performed By: #### 2 777-1, , ####[facility]ORATORYCLIA [id number] [address] [place] Creatinine [Mass/Vol] 0.77 mg/dL Normal 0.73-1.22 [facility] Comment on above: Order Comment: Speci men Type: BLOOD SPECIMEN Performed By: #### 2 777-1, , ####[facility]ORATORYCLIA [id number] [place] [address] [place] GFR/1.73 sq M.predicted [...] GFR. Performed By: #### 2 777-1, , ####[facility]ORATORYCLIA [id number] [address] STATES OF [facility] Glucose [Mass/Vol] 107 mg/dL High 74-99 [...] 1). Performed By: #### 2 777-1, , ####[facility]ORATORYCLIA [id number] [address] STATES [place] [facility] Potassium [Moles/Vol] 3.1 mmol/L Low 3.7-5.1 [facility] Comment on above: Order Comment: Speci men Type: BLOOD SPECIMEN Performed By: #### 2 777-1, , ####[facility]ORATORYCLIA [id number] [address] STATES [facility] Urea nitrogen [Mass/Vol] 19 mg/dL Normal 9-24 [facility] Comment on above: Order Comment: Speci men Type: BLOOD SPECIMEN Performed By: #### 2 777-1, , ####[facility]ORATORYCLIA [id number] [address] [place] CBC panel Auto (Bld)on 06-04 Erythrocyte distribution width (RBC) [Ratio] 15.8 % High 11.5-15.0 [facility] Comment on above: Order Comment: Speci men Type: BLOOD SPECIMEN Performed By: #### 5 8410-2 ####[facility]ORATORYCLIA [id number] [address] Hematocrit (Bld) [Volume fraction] 36.9 % Low 39.0-51.0 [facility] Comment on above: Order Comment: Speci men Type: BLOOD SPECIMEN Performed By: #### 5 8410-2 ####[facility]ORATORYCLIA [id number] [address] Hemoglobin (Bld) [Mass/Vol] 11.2 g/dL Low 13.0-17.0 [facility] Comment on above: Order Comment: Speci men Type: BLOOD SPECIMEN Performed By: #### 5 8410-2 ####[facility]ORATORYCLIA [id number] [address] MCH (RBC) [Entitic mass] 27.3 pg Normal 26.0-34.0 [facility] Comment on above: Order Comment: Speci men Type: BLOOD SPECIMEN Performed By: #### 5 8410-2 ####[facility]ATORYCLIA [id number] [address] MCHC (RBC) [Mass/Vol] 30.4 g/dL Low 30.5-36.0 [facility] Comment on above: Order Comment: Speci men Type: BLOOD SPECIMEN Performed By: #### 5 8410-2 ####[facility]ORATORYCLIA [id number] [address] MCV (RBC) [Entitic vol] 89.8 fL Normal 80.0-100.0 [facility] Comment on above: Order Comment: Speci men Type: BLOOD SPECIMEN Performed By: #### 5 8410-2 ####[facility]ORYCLIA [id number] [address] Nucleated RBC (Bld) [#/Vol] 10*3/uL Normal <0.01 [facility] Comment on above: Order Comment: Speci men Type: BLOOD SPECIMEN Performed By: #### 5 8410-2 ####[facility]ORATORYCLIA [id number] [address] Platelet mean volume (Bld) [Entitic vol] 10.7 fL Normal 9.0-12.7 [facility] Comment on above: Order Comment: Speci men Type: BLOOD SPECIMEN Performed By: #### 5 8410-2 ####[facility]ORATORYCLIA [id number] [address] Platelets (Bld) [#/Vol] 174 10*3/uL Normal 150-400 [facility] Comment on above: Order Comment: Speci men Type: BLOOD SPECIMEN Performed By: #### 5 8410-2 ####[facility]ORATORYCLIA [id number] [address] RBC (Bld) [#/Vol] 4.11 10*6/uL Low 4.20-6.00 [facility] Comment on above: Order Comment: Speci men Type: BLOOD SPECIMEN Performed By: #### 5 8410-2 ####[facility]ORATORYCLIA [id number] [address] WBC (Bld) [#/Vol] 8.29 10*3/uL Normal 3.70-11.00 [facility] Comment on above: Order Comment: Speci men Type: BLOOD SPECIMEN Performed By: #### 5 8410-2 ####[facility] LABORATORYCLIA [id number] [address] CONSULT PROGon 06-04-2021 CONSULT PROG Normal [facility] CT BRAIN WO IVCONon 06-04-19 CT BRAIN WO IVCON Normal [facility] CT CHEST W IVCON PEon 01-29- 2022 CT CHEST W IVCON PE Normal [facility] Magnesium [Mass/Vol] 2.2 mg/dL Normal 1.7-2.3 [facility] Comment on above: Order Comment: Speci men Type: BLOOD SPECIMEN Performed By: #### 2 777-1, 27380-8, 88790-7 ####[facility] LABORATORYCLIA [id number] [address] [facility] NT-proBNP [facility] [facility] 06-04 Natriuretic peptide.B prohormone N-Terminal [Mass/Vol] 229 pg/mL High <125 [facility] Comment on above: Order Comment: Speci men Type: BLOOD SPECIMEN Performed By: #### 3 3762-6, 4090-5 ####[facility] [id number] [address] STATES OF [facility] Phosphate [facility] 06-04 Phosphate [Mass/Vol] 2.0 mg/dL Low 2.7-4.8 [facility] Comment on above: Order Comment: Speci men Type: BLOOD SPECIMEN Performed By: #### 2 777-1, , ####[facility] LABORATORYCLIA [id number] [address] [place] [facility] Vancomycin random [Mass/Vol] on 06-04-2021 Vancomycin [Mass/Vol] 35.2 ug/mL High 10.0-20.0 [facility] Comment on above: Order Comment: Speci men Type: BLOOD SPECIMEN Result Comment: Refe rence ranges and high/low indicator flags are provided as general guidelines only. The treating physician must determine appropriate target levels/dosing based on the specific clinical situation. Performed By: #### 3 3762-6, 4091-5 ####[facility]ORATORYCLIA [id number] [address] [place] XR ABDOMEN 1V SUPINEon 06-04 XR ABDOMEN 1V SUPINE Normal [facility] ALLIED HEALTHon 06-03-2021 ALLIED HEALTH Normal [facility] ARTERIAL BLOOD GASESon 06-03 Base excess Calc (Bld) [Moles/Vol] 5 mmol/L High 0-2 [facility] Comment on above: Order Comment: Speci men Type: ARTERIAL BLOOD SPECIMEN Performed By: #### A LLBG ####[facility]ORATORYCLIA [id number] [address] Body temperature 99.5 [degF] Normal [facility] Comment on above: Order Comment: Speci men Type: ARTERIAL BLOOD SPECIMEN Performed By: #### A LLBG ####[facility]ORATORYCLIA [id number] [address] CALCIUM IONIZED, PH CORRECTED 1.18 mmol/L Normal 1.08-1.30 [facility] Comment on above: Order Comment: Speci men Type: ARTERIAL BLOOD SPECIMEN Performed By: #### A LLBG ####[facility]ORATORYCLIA [id number] [address] OF [facility] Calcium.ionized (BldV) [Mass/Vol] 1.16 mmol/L Normal 1.08-1.30 [facility] Comment on above: Order Comment: Speci men Type: ARTERIAL BLOOD SPECIMEN Performed By: #### A LLBG ####[facility]ATORYCLIA [id number] [address] Carboxyhemoglobin (BldA) [Mass fraction] 1.2 % Normal 0.0-2.0 [facility] Comment on above: Order Comment: Speci men Type: ARTERIAL BLOOD SPECIMEN Result Comment: Carb oxyhemoglobin Reference Range for Smokers: 2.0-8.0% Performed By: #### A LLBG ####[facility]ATORYCLIA [id number] [address] CO2 (Bld) [Partial pressure] 45 mm Hg Normal 36-46 [facility] Comment on above: Order Comment: Speci men Type: ARTERIAL BLOOD SPECIMEN Performed By: #### A LLBG ####[facility]ORATORYCLIA [id number] CO2 [Moles/Vol] 26.9 mmol/L Normal 22-28 [facility] Comment on above: Order Comment: Speci men Type: ARTERIAL BLOOD SPECIMEN Performed By: #### A LLBG ####[facility]ATORYCLIA [id number] [address] CO2 adjusted to patient's actual temperature (Bld) [Partial pressure] 47 mmHg High 36-46 [facility] Comment on above: Order Comment: Speci men Type: ARTERIAL BLOOD SPECIMEN Performed By: #### A LLBG ####[facility]ATORYCLIA [id number] [address] Glucose [Mass/Vol] 141 mg/dL High 60-105 [facility] Comment on above: Order Comment: Speci men Type: ARTERIAL BLOOD SPECIMEN Performed By: #### A LLBG ####[facility]ATORYCLIA [id number] [address] HCO3 (Bld) [Moles/Vol] 30 mmol/L High 22-26 [facility] Comment on above: Order Comment: Speci men Type: ARTERIAL BLOOD SPECIMEN Performed By: #### A LLBG ####[facility]ORYCLIA [id number] [address] OF [facility] Hematocrit (Bld) [Volume fraction] 35.8 % Low 39.0-51.0 [facility] Comment on above: Order Comment: Speci men Type: ARTERIAL BLOOD SPECIMEN Performed By: #### A LLBG ####[facility]ORYCLIA [id number] [address] [place] Hemoglobin (Bld) [Mass/Vol] 11.6 g/dL Low 13.0-17.0 [facility] Comment on above: Order Comment: Speci men Type: ARTERIAL BLOOD SPECIMEN Performed By: #### A LLBG ####[facility]ORYCLIA [id number] [address] Methemoglobin (Bld) [Mass fraction] % Normal 0.0-1.5 [facility] Comment on above: Order Comment: Speci men Type: ARTERIAL BLOOD SPECIMEN Performed By: #### A LLBG ####[facility]ATORYCLIA [id number] [address] O2 THERAPY Ventilator Normal [facility] Comment on above: Order Comment: Speci men Type: ARTERIAL BLOOD SPECIMEN Performed By: #### A LLBG ####[facility]ATORYCLIA [id number] [address] Oxygen (Bld) [Partial pressure] 69 mm Hg Low 85-95 [facility] Comment on above: Order Comment: Speci men Type: ARTERIAL BLOOD SPECIMEN Performed By: #### A LLBG ####[facility]ORYCLIA [id number] [address] Oxygen adjusted to patient's actual temperature (Bld) [Partial pressure] 70.8 mmHg Low 85-95 [facility] Comment on above: Order Comment: Speci men Type: ARTERIAL BLOOD SPECIMEN Performed By: #### A LLBG ####[facility]ATORYCLIA [id number] [address] OXYGEN SATURATION, ARTERIAL 94 % Low 95-98 [facility] Comment on above: Order Comment: Speci men Type: ARTERIAL BLOOD SPECIMEN Performed By: #### A LLBG ####[facility]ATORYCLIA [id number] [address] Oxyhemoglobin (BldA) [Mass fraction] 93 % Low 95-98 [facility] Comment on above: Order Comment: Speci men Type: ARTERIAL BLOOD SPECIMEN Performed By: #### A LLBG ####[facility]ATORYCLIA [id number] [address] pH (Bld) 7.43 [pH] Normal 7.35-7.45 [facility] Comment on above: Order Comment: Speci men Type: ARTERIAL BLOOD SPECIMEN Performed By: #### A LLBG ####[facility]ATORYCLIA [id number] [address] OF [facility] pH adjusted to patient's actual temperature (Bld) 7.43 Normal 7.35-7.45 [facility] Comment on above: Order Comment: Speci men Type: ARTERIAL BLOOD SPECIMEN Performed By: #### A LLBG ####[facility]ATORYCLIA [id number] [address] Potassium [Moles/Vol] 3.1 mmol/L Low 3.5-5.0 [facility] Comment on above: Order Comment: Speci men Type: ARTERIAL BLOOD SPECIMEN Performed By: #### A LLBG ####[facility]ATORYCLIA [id number] [address] Sodium [Moles/Vol] 145 mmol/L High 136-144 [facility] Comment on above: Order Comment: Speci men Type: ARTERIAL BLOOD SPECIMEN Performed By: #### A LLBG ####[facility]ORATORYCLIA [id number] [address] ASPERGILLUS GALACTOMANNAN SE RUMon 06-03-2021 Galactomannan [...] is suspected. Performed By: #### A SGALS ####[facility] REFERENCE LABCLIA [id number] [id number] [address] [place] Galactomannan Ag IA Qn <0.50 Normal [facility] Comment on above: Order Comment: Speci men Type: BLOOD SPECIMEN Result Comment: Inde x Values are Interpreted as Follows:Negative specimens <0.50Positive specimens >=0.50 Performed By: #### A SGALS ####[facility] REFERENCE LABCLIA [id number] [place] LINDA [id number], [place] [address] [place] Basic metabolic 2000 panelon 06-03-2021 Anion gap [Moles/Vol] 8 mmol/L Low 9-18 [facility] Comment on above: Order Comment: Speci men Type: BLOOD SPECIMEN Performed By: #### 1 9123-9, 277-, 67413-5 ####[facility]ATORYCLIA [id number] [place] [address] [place] [facility] Calcium [Mass/Vol] 8.0 mg/dL Low 8.5-10.2 [facility] Comment on above: Order Comment: Speci men Type: BLOOD SPECIMEN Performed By: #### 1 9123-9, 2776-05, 35485-9 ####[facility]ORATORYCLIA [id number] [address] [place] Chloride [Moles/Vol] 110 mmol/L High 97-105 [facility] Comment on above: Order Comment: Speci men Type: BLOOD SPECIMEN Performed By: #### 1 9123-9, 2776-05, 24421-0 ####[facility]ATORYCLIA [id number] [address] [place] CO2 [Moles/Vol] 28 mmol/L Normal 22-30 [facility] Comment on above: Order Comment: Speci men Type: BLOOD SPECIMEN Performed By: #### 1 9123-9, 2776-05, 87013-2 ####[facility]ATORYCLIA [id number] [address] [place] Creatinine [Mass/Vol] 0.75 mg/dL Normal 0.73-1.22 [facility] Comment on above: Order Comment: Speci men Type: BLOOD SPECIMEN Performed By: #### 1 9123-9, 2776-05, 28857-1 ####[facility]ORATORYCLIA [id number] [place] [address] [place] GFR/1.73 sq M.predicted [...] GFR. Performed By: #### 1 9123-9, 2777-, 54372-9 ####[facility]STERCLIA [id number] [place] [address] [place] Glucose [Mass/Vol] 141 [...] 1). Performed By: #### 1 9123-9, 2777-, 30435-4 ####[facility]ORATORYCLIA [id number] [place] [address] [place] Potassium [Moles/Vol] 3.3 mmol/L Low 3.7-5.1 [facility] Comment on above: Order Comment: Speci [facility] Type: BLOOD SPECIMEN Performed By: #### 1 9123-9, 2777-1, ####[facility]ORATORYCLIA [id number] [place], [place] [address] [place] [address] STATES [facility] Sodium [Moles/Vol] 146 mmol/L High 136-144 [facility] Comment on above: Order Comment: Speci men Type: BLOOD SPECIMEN Performed By: #### 1 9123-9, 27711-04, 71887-5 ####[facility]ORATORYCLIA [id number] [address] STATES [facility] Urea nitrogen [Mass/Vol] 10 mg/dL Normal 9-24 [facility] Comment on above: Order Comment: Speci men Type: BLOOD SPECIMEN Performed By: #### 1 9123-9, 2776-05, ####[facility]ORATORYCLIA [id number] [address] CASE MANAGEMon 06-03-2021 CASE MANAGEM Normal [facility] CBC panel Auto (Bld)on 06-03 Erythrocyte distribution width (RBC) [Ratio] 15.6 % High 11.5-15.0 [facility] Comment on above: Order Comment: Speci men Type: BLOOD SPECIMEN Performed By: #### 5 8410-2 ####[facility]ORATORYCLIA [id number] [address] Hematocrit (Bld) [Volume fraction] 36.9 % Low 39.0-51.0 [facility] Comment on above: Order Comment: Speci men Type: BLOOD SPECIMEN Performed By: #### 5 8410-2 ####[facility]ATORYCLIA [id number] [address] STATES [place] [facility] Hemoglobin (Bld) [Mass/Vol] 11.1 g/dL Low 13.0-17.0 [facility] Comment on above: Order Comment: Speci men Type: BLOOD SPECIMEN Performed By: #### 5 8410-2 ####[facility]ORATORYCLIA [id number] [address] MCH (RBC) [Entitic mass] 27.0 pg Normal 26.0-34.0 [facility] Comment on above: Order Comment: Speci men Type: BLOOD SPECIMEN Performed By: #### 5 8410-2 ####[facility]ATORYCLIA [id number] [address] MCHC (RBC) [Mass/Vol] 30.1 g/dL Low 30.5-36.0 [facility] Comment on above: Order Comment: Speci men Type: BLOOD SPECIMEN Performed By: #### 5 8410-2 ####[facility]ATORYCLIA [id number] [address] MCV (RBC) [Entitic vol] 89.8 fL Normal 80.0-100.0 [facility] Comment on above: Order Comment: Speci men Type: BLOOD SPECIMEN Performed By: #### 5 8410-2 ####[facility]ATORYCLIA [id number] [address] Nucleated RBC (Bld) [#/Vol] 10*3/uL Normal <0.01 [facility] Comment on above: Order Comment: Speci men Type: BLOOD SPECIMEN Performed By: #### 5 8410-2 ####[facility]ORATORYCLIA [id number] [address] Platelet mean volume (Bld) [Entitic vol] 10.5 fL Normal 9.0-12.7 [facility] Comment on above: Order Comment: Speci men Type: BLOOD SPECIMEN Performed By: #### 5 8410-2 ####[facility]ORATORYCLIA [id number] [address] Platelets (Bld) [#/Vol] 196 10*3/uL Normal 150-400 [facility] Comment on above: Order Comment: Speci men Type: BLOOD SPECIMEN Performed By: #### 5 8410-2 ####[facility]ATORYCLIA [id number] [address] RBC (Bld) [#/Vol] 4.11 10*6/uL Low 4.20-6.00 [facility] Comment on above: Order Comment: Speci men Type: BLOOD SPECIMEN Performed By: #### 5 8410-2 ####[facility]ORATORYCLIA [id number] [address] [place] WBC (Bld) [#/Vol] 8.18 10*3/uL Normal 3.70-11.00 [facility] Comment on above: Order Comment: Speci men Type: BLOOD SPECIMEN Performed By: #### 5 8410-2 ####[facility]ORATORYCLIA [id number] [address] [place] CONSULTon 06-03-2021 CONSULT Normal [facility] CONSULT PROGon 06-03-2021 CONSULT PROG Normal [facility] Gas and Carbon monoxide pane l (BldV)on 06-03-2021 Base excess Calc (BldV) [Moles/Vol] 1.4 mmol/L Normal 0-2 [facility] Comment on above: Order Comment: Speci men Type: VENOUS BLOOD SPECIMEN Performed By: #### 2 4344-4 ####[facility]ORATORYCLIA [id number] [address] Body temperature 98.42 [degF] Normal [facility] Comment on above: Order Comment: Speci men Type: VENOUS BLOOD SPECIMEN Performed By: #### 2 4344-4 ####[facility]ORATORYCLIA [id number] [address] OF [facility] CALCIUM IONIZED, PH CORRECTED 1.09 mmol/L Normal 1.08-1.30 [facility] Comment on above: Order Comment: Speci men Type: VENOUS BLOOD SPECIMEN Performed By: #### 2 4344-4 ####[facility]ORATORYCLIA [id number] [address] [place] Calcium.ionized (BldV) [Mass/Vol] 1.12 mmol/L Normal 1.08-1.30 [facility] Comment on above: Order Comment: Speci men Type: VENOUS BLOOD SPECIMEN Performed By: #### 2 4344-4 ####[facility]ATORYCLIA [id number] [place], [place] [address] [place] [address] Carboxyhemoglobin (BldV) [Mass fraction] 1.7 % Normal 0.0-2.0 [facility] Comment on above: Order Comment: Speci men Type: VENOUS BLOOD SPECIMEN Result Comment: Carb oxyhemoglobin Reference Range for Smokers: 2.0-8.0% Performed By: #### 2 4344-4 ####[facility]ATORYCLIA [id number] [address] CO2 (BldV) [Partial pressure] 50 mm[Hg] Normal 42-55 [facility] Comment on above: Order Comment: Speci men Type: VENOUS BLOOD SPECIMEN Performed By: #### 2 4344-4 ####[facility]ORYCLIA [id number] [address] CO2 [Moles/Vol] 24.9 mmol/L Low 25-29 [facility] Comment on above: Order Comment: Speci men Type: VENOUS BLOOD SPECIMEN Performed By: #### 2 4344-4 ####[facility]ORYCLIA [id number] [address] CO2 adjusted to patient's actual temperature (BldV) [Partial pressure] 50 mmHg Normal 42-55 [facility] Comment on above: Order Comment: Speci men Type: VENOUS BLOOD SPECIMEN Performed By: #### 2 4344-4 ####[facility]ORYCLIA [id number] [address] FIO2 30 % Normal [facility] Comment on above: Order Comment: Speci men Type: VENOUS BLOOD SPECIMEN Performed By: #### 2 4344-4 ####[facility]ORYCLIA [id number] [address] Glucose [Mass/Vol] 191 mg/dL High 60-105 [facility] Comment on above: Order Comment: Speci men Type: VENOUS BLOOD SPECIMEN Performed By: #### 2 4344-4 ####[facility]ORYCLIA [id number] [address] [place] HCO3 (Bld) [Moles/Vol] 27.1 mmol/L Normal 24-[address] [facility] Comment on above: Order Comment: Speci men Type: VENOUS BLOOD SPECIMEN Performed By: #### 2 4344-4 ####[facility]ORYCLIA [id number] [address] OF [facility] Hematocrit (Bld) [Volume fraction] 36.2 % Low 39.0-51.0 [facility] Comment on above: Order Comment: Speci men Type: VENOUS BLOOD SPECIMEN Performed By: #### 2 4344-4 ####[facility]ORYCLIA [id number] [address] Hemoglobin (Bld) [Mass/Vol] 11.8 g/dL Low 13.0-17.0 [facility] Comment on above: Order Comment: Speci men Type: VENOUS BLOOD SPECIMEN Performed By: #### 2 4344-4 ####[facility]ORYCLIA [id number] [address] INHALED TIDAL VOLUME (ML) 530 Normal [facility] Comment on above: Order Comment: Speci men Type: VENOUS BLOOD SPECIMEN Performed By: #### 2 4344-4 ####[facility]ORYCLIA [id number] [address] [place] Methemoglobin (Bld) [Mass fraction] % Normal 0.0-1.5 [facility] Comment on above: Order Comment: Speci men Type: VENOUS BLOOD SPECIMEN Performed By: #### 2 4344-4 ####[facility]ORYCLIA [id number] [address] O2 THERAPY Ventilator Normal [facility] Comment on above: Order Comment: Speci men Type: VENOUS BLOOD SPECIMEN Performed By: #### 2 4344-4 ####[facility]ATORYCLIA [id number] [place] [address] [place] Oxygen (BldV) [Partial pressure] 69 mm[Hg] High 35-45 [facility] Comment on above: Order Comment: Speci men Type: VENOUS BLOOD SPECIMEN Performed By: #### 2 4344-4 ####[facility]ORATORYCLIA [id number] [place] [address] [facility] Oxygen adjusted to patient's actual temperature (BldV) [Partial pressure] 68.8 mmHg High 35-45 [facility] Comment on above: Order Comment: Speci men Type: VENOUS BLOOD SPECIMEN Performed By: #### 2 4344-4 ####[facility]ATORYCLIA [id number] [place], [place] [address] [place] [address] Oxygen saturation in Blood 92.4 % High 60-85 [facility] Comment on above: Order Comment: Speci men Type: VENOUS BLOOD SPECIMEN Performed By: #### 2 4344-4 ####[facility]ATORYCLIA [id number] [place], [place] [address] [place] [address] Oxyhemoglobin (BldV) [Mass fraction] 90 % High 60-85 [facility] Comment on above: Order Comment: Speci men Type: VENOUS BLOOD SPECIMEN Performed By: #### 2 4344-4 ####[facility]ATORYCLIA [id number] [place], [place] [address] [place] [address] [place] PEEP/CPAP 8 cmH2O Normal [facility] Comment on above: Order Comment: Speci men Type: VENOUS BLOOD SPECIMEN Performed By: #### 2 4344-4 ####[facility]ATORYCLIA [id number] [place], [place] [address] [place] [address] pH (BldV) 7.35 [pH] Normal 7.32-7.42 [facility] Comment on above: Order Comment: Speci men Type: VENOUS BLOOD SPECIMEN Performed By: #### 2 4344-4 ####[facility]ATORYCLIA [id number] [place], [place] [address] [place] [address] [place] pH adjusted to patient's actual temperature (BldV) 7.35 Normal 7.32-7.42 [facility] Comment on above: Order Comment: Speci men Type: VENOUS BLOOD SPECIMEN Performed By: #### 2 4344-4 ####[facility] LABORATORYCLIA [id number] [address] Potassium [Moles/Vol] 3.6 mmol/L Normal 3.5-5.0 [facility] Comment on above: Order Comment: Speci men Type: VENOUS BLOOD SPECIMEN Performed By: #### 2 4344-4 ####[facility] LABORATORYCLIA [id number] [address] SET VENTILATOR RESPIRATORY RATE (BPM) 18 BPM Normal [facility] Comment on above: Order Comment: Speci men Type: VENOUS BLOOD SPECIMEN Performed By: #### 2 4344-4 ####[facility]ORATORYCLIA [id number] [address] Sodium [Moles/Vol] 141 mmol/L Normal 136-144 [facility] Comment on above: Order Comment: Speci men Type: VENOUS BLOOD SPECIMEN Performed By: #### 2 4344-4 ####[facility] LABORATORYCLIA [id number] [address] HIV 1+2 Ab IA Qlon 2 HIV 1 and 2 Ab IA.rapid Nom Normal [facility] Comment on above: Order Comment: Speci men Type: BLOOD SPECIMEN Result Comment: Test not indicated. Performed By: #### 3 1201-7, TOXMG ####[facility] LABORATORYCLIA [id number] [address] HIV 1+2 Ab+HIV1 p24 Ag IA Ql Non-Reactive Normal Nonreactive [facility] Comment on above: Order Comment: Speci men Type: BLOOD SPECIMEN Result Comment: [place] Rev. Code 3701.243(E): This information has been [...] diagnoses. Performed By: #### 3 1201-7, TOXMG ####[facility] LABORATORYCLIA [id number] [address] HIVINT Normal [facility] Comment on above: Order Comment: Speci men Type: BLOOD SPECIMEN Result Comment: No e vidence of HIV-1 or HIV-2 infection. Should recent infection be suspected, repeat testing may be considered 2-3 weeks after this draw. Performed By: #### 3 1201-7, TOXMG ####[facility] LABORATORYCLIA [id number] [address] OF [facility] Magnesium SerPl-mCncon 06-03 Magnesium [Mass/Vol] 1.9 mg/dL Normal 1.7-2.3 [facility] Comment on above: Order Comment: Speci men Type: BLOOD SPECIMEN Performed By: #### 1 9123-9, 2777-1, 42701-1 ####[facility] LABORATORYCLIA [id number] [address] NUTRITIONon 06-03-2021 NUTRITION Normal [facility] Phosphate SerPl-mCncon 06-03 Phosphate [Mass/Vol] 1.9 mg/dL Low 2.7-4.8 [facility] Comment on above: Order Comment: Speci men Type: BLOOD SPECIMEN Performed By: #### 1 9123-9, 2777-1, 86132-3 ####[facility] LABORATORYCLIA [id number] [address] TOXOPLASMOSIS IGM AND IGG AB on [...] IU/mL Performed By: #### 3 1201-7, TOXMG ####[facility]ORATORYCLIA [id number] [address] TOXO IGM QUAL Negative Normal Negative [facility] Comment on above: Order Comment: Speci men Type: BLOOD SPECIMEN Result Comment: No s erological evidence of recent exposure to Toxoplasma gondii.Negative <0.9 IndexEquivocal 0.9-0.99 IndexPositive >=1.0 Index Performed By: #### 3 1201-7, TOXMG ####[facility] LABORATORYCLIA [id number] [address] [place] US DVT LOWER BILon US [...] BLOOD SPECIMEN Performed By: #### A LLBG ####[facility] LABORATORYCLIA [id number] [address] Body temperature 99.32 [degF] Normal [facility] Comment on above: Order Comment: Speci men Type: ARTERIAL BLOOD SPECIMEN Performed By: #### A LLBG ####[facility] LABORATORYCLIA [id number] [address] CALCIUM IONIZED, PH CORRECTED 1.15 mmol/L Normal 1.08-1.30 [facility] Comment on above: Order Comment: Speci men Type: ARTERIAL BLOOD SPECIMEN Performed By: #### A LLBG ####[facility] LABORATORYCLIA [id number] [address] Calcium.ionized (BldV) [Mass/Vol] 1.13 mmol/L Normal 1.08-1.30 [facility] Comment on above: Order Comment: Speci men Type: ARTERIAL BLOOD SPECIMEN Performed By: #### A LLBG ####[facility]ATORYCLIA [id number] [address] OF [facility] Carboxyhemoglobin (BldA) [Mass fraction] 1.4 % Normal 0.0-2.0 [facility] Comment on above: Order Comment: Speci men Type: ARTERIAL BLOOD SPECIMEN Result Comment: Carb oxyhemoglobin Reference Range for Smokers: 2.0-8.0% Performed By: #### A LLBG ####[facility]ORYCLIA [id number] [address] [place] CO2 (Bld) [Partial pressure] 39 mm Hg Normal 36-46 [facility] Comment on above: Order Comment: Speci men Type: ARTERIAL BLOOD SPECIMEN Performed By: #### A LLBG ####[facility]ORATORYCLIA [id number] [address] [facility] CO2 [Moles/Vol] 23.4 mmol/L Normal 22-28 [facility] Comment on above: Order Comment: Speci men Type: ARTERIAL BLOOD SPECIMEN Performed By: #### A LLBG ####[facility]ATORYCLIA [id number] [address] CO2 adjusted to patient's actual temperature (Bld) [Partial pressure] 40 mmHg Normal 36-46 [facility] Comment on above: Order Comment: Speci men Type: ARTERIAL BLOOD SPECIMEN Performed By: #### A LLBG ####[facility]ATORYCLIA [id number] [address] [place] Glucose [Mass/Vol] 156 mg/dL High 60-105 [facility] Comment on above: Order Comment: Speci men Type: ARTERIAL BLOOD SPECIMEN Performed By: #### A LLBG ####[facility]ORYCLIA [id number] [address] [place] HCO3 (Bld) [Moles/Vol] 26 mmol/L Normal 22-26 [facility] Comment on above: Order Comment: Speci men Type: ARTERIAL BLOOD SPECIMEN Performed By: #### A LLBG ####[facility]ORYCLIA [id number] [address] Hematocrit (Bld) [Volume fraction] 33.9 % Low 39.0-51.0 [facility] Comment on above: Order Comment: Speci men Type: ARTERIAL BLOOD SPECIMEN Performed By: #### A LLBG ####[facility]ORYCLIA [id number] [address] [facility] Hemoglobin (Bld) [Mass/Vol] 11.0 g/dL Low 13.0-17.0 [facility] Comment on above: Order Comment: Speci men Type: ARTERIAL BLOOD SPECIMEN Performed By: #### A LLBG ####[facility]ATORYCLIA [id number] [address] Methemoglobin (Bld) [Mass fraction] % Normal 0.0-1.5 [facility] Comment on above: Order Comment: Speci men Type: ARTERIAL BLOOD SPECIMEN Performed By: #### A LLBG ####[facility]ORYCLIA [id number] [address] [place] O2 THERAPY Ventilator Normal [facility] Comment on above: Order Comment: Speci men Type: ARTERIAL BLOOD SPECIMEN Performed By: #### A LLBG ####[facility]ORYCLIA [id number] [address] [place] Oxygen (Bld) [Partial pressure] 70 mm Hg Low 85-95 [facility] Comment on above: Order Comment: Speci men Type: ARTERIAL BLOOD SPECIMEN Performed By: #### A LLBG ####[facility]ORYCLIA [id number] [address] [place] Oxygen adjusted to patient's actual temperature (Bld) [Partial pressure] 72.2 mmHg Low 85-95 [facility] Comment on above: Order Comment: Speci men Type: ARTERIAL BLOOD SPECIMEN Performed By: #### A LLBG ####[facility]ORYCLIA [id number] [address] [place] OXYGEN SATURATION, ARTERIAL 96 % Normal 95-98 [facility] Comment on above: Order Comment: Speci men Type: ARTERIAL BLOOD SPECIMEN Performed By: #### A LLBG ####[facility]ORYCLIA [id number] [address] Oxyhemoglobin (BldA) [Mass fraction] 94 % Low 95-98 [facility] Comment on above: Order Comment: Speci men Type: ARTERIAL BLOOD SPECIMEN Performed By: #### A LLBG ####[facility]ORYCLIA [id number] [address] pH (Bld) 7.43 [pH] Normal 7.35-7.45 [facility] Comment on above: Order Comment: Speci men Type: ARTERIAL BLOOD SPECIMEN Performed By: #### A LLBG ####[facility]ORYCLIA [id number] [address] pH adjusted to patient's actual temperature (Bld) 7.42 Normal 7.35-7.45 [facility] Comment on above: Order Comment: Speci men Type: ARTERIAL BLOOD SPECIMEN Performed By: #### A LLBG ####[facility]ATORYCLIA [id number] [address] Potassium [Moles/Vol] 2.6 mmol/L Low 3.5-5.0 [facility] Comment on above: Order Comment: Speci men Type: ARTERIAL BLOOD SPECIMEN Performed By: #### A LLBG ####[facility]ORYCLIA [id number] [address] Sodium [Moles/Vol] 142 mmol/L Normal 136-144 [facility] Comment on above: Order Comment: Speci men Type: ARTERIAL BLOOD SPECIMEN Performed By: #### A LLBG ####[facility]ORYCLIA [id number] [address] Ammonia Plas-sCncon 06-02-19 22 Ammonia (P) [Moles/Vol] 20 umol/L Normal 16-60 [facility] Comment on above: Order Comment: Speci men Type: BLOOD SPECIMEN Performed By: #### 1 6362-6 ####[facility]ORATORYCLIA [id number] [address] STATES OF [facility] Bacteria CSF Culton 06-02-19 22 Bacteria identified Cx Nom (CSF) CULTURE, CSF: No growth 14 days GRAM STAIN: No organisms seen Rare Polymorphonuclear leukocytes Gram stain performed on cytospun specimen. Normal [facility] Comment on above: Performed By: #### 6 06-4 ####[facility]ATORYCLIA [id number] [address] [facility] Basic metabolic 2000 panelon 06-02-2021 Anion gap [Moles/Vol] 10 mmol/L Normal 9-18 [facility] Comment on above: Order Comment: Speci men Type: BLOOD SPECIMEN Performed By: #### 2 4321-2, , 2776-05 ####[facility]ORATORYCLIA [id number] [address] STATES OF [facility] Calcium [Mass/Vol] 8.1 mg/dL Low 8.5-10.2 [facility] Comment on above: Order Comment: Speci men Type: BLOOD SPECIMEN Performed By: #### 2 4321-2, , 2776-05 ####[facility]ORATORYCLIA [id number] [address] [place] Chloride [Moles/Vol] 108 mmol/L High 97-105 [facility] Comment on above: Order Comment: Speci men Type: BLOOD SPECIMEN Performed By: #### 2 4321-2, , 2776-05 ####[facility]ATORYCLIA [id number] [place] [address] [place] CO2 [Moles/Vol] 24 mmol/L Normal 22-30 [facility] Comment on above: Order Comment: Speci men Type: BLOOD SPECIMEN Performed By: #### 2 4321-2, , 2776-05 ####[facility]ATORYCLIA [id number] [address] [place] Creatinine [Mass/Vol] 0.78 mg/dL Normal 0.73-1.22 [facility] Comment on above: Order Comment: Speci [facility] Type: BLOOD SPECIMEN Performed By: #### 2 4321-2, , 2776-05 ####[facility]ATORYCLIA [id number] [place] [address] [place] GFR/1.73 sq M.predicted [...] Performed By: #### 2 4321-2, , 2776-05 ####[facility]ORATORYCLIA [id number] [place] [address] [place] Glucose [Mass/Vol] 162 mg/dL High 74-99 [facility] Comment on above: Order Comment: [facility] Type: BLOOD SPECIMEN Result Comment: [facility] [place] [...] Performed By: #### 2 4321-2, , 2776-05 ####[facility]ATORYCLIA [id number] [address] Potassium [Moles/Vol] 2.7 mmol/L Low 3.7-5.1 [facility] Comment on above: Order Comment: Speci men Type: BLOOD SPECIMEN Performed By: #### 2 4321-2, , 2776-05 ####[facility]ORYCLIA [id number] [address] Sodium [Moles/Vol] 142 mmol/L Normal 136-144 [facility] Comment on above: Order Comment: Speci men Type: BLOOD SPECIMEN Performed By: #### 2 4321-2, , 2776-05 ####[facility]ATORYCLIA [id number] [address] Urea nitrogen [Mass/Vol] 12 mg/dL Normal 9-24 [facility] Comment on above: Order Comment: Speci men Type: BLOOD SPECIMEN Performed By: #### 2 4321-2, , 2776-05 ####[facility]ATORYCLIA [id number] [address] CBC panel Auto (Bld)on 06-02 Erythrocyte distribution width (RBC) [Ratio] 15.0 % Normal 11.5-15.0 [facility] Comment on above: Order Comment: Speci men Type: BLOOD SPECIMEN Performed By: #### 5 8410-2 ####[facility]ATORYCLIA [id number] [address] Hematocrit (Bld) [Volume fraction] 34.3 % Low 39.0-51.0 [facility] Comment on above: Order Comment: Speci men Type: BLOOD SPECIMEN Performed By: #### 5 8410-2 ####[facility]ATORYCLIA [id number] [address] Hemoglobin (Bld) [Mass/Vol] 10.3 g/dL Low 13.0-17.0 [facility] Comment on above: Order Comment: Speci men Type: BLOOD SPECIMEN Performed By: #### 5 8410-2 ####[facility]ATORYCLIA [id number] [address] MCH (RBC) [Entitic mass] 27.0 pg Normal 26.0-34.0 [facility] Comment on above: Order Comment: Speci men Type: BLOOD SPECIMEN Performed By: #### 5 8410-2 ####[facility]ATORYCLIA [id number] [address] MCHC (RBC) [Mass/Vol] 30.0 g/dL Low 30.5-36.0 [facility] Comment on above: Order Comment: Speci men Type: BLOOD SPECIMEN Performed By: #### 5 8410-2 ####[facility]ATORYCLIA [id number] [address] MCV (RBC) [Entitic vol] 90.0 fL Normal 80.0-100.0 [facility] Comment on above: Order Comment: Speci men Type: BLOOD SPECIMEN Performed By: #### 5 8410-2 ####[facility]ATORYCLIA [id number] [address] Nucleated RBC (Bld) [#/Vol] 10*3/uL Normal <0.01 [facility] Comment on above: Order Comment: Speci men Type: BLOOD SPECIMEN Performed By: #### 5 8410-2 ####[facility]ORATORYCLIA [id number] [address] Platelet mean volume (Bld) [Entitic vol] 10.2 fL Normal 9.0-12.7 [facility] Comment on above: Order Comment: Speci men Type: BLOOD SPECIMEN Performed By: #### 5 8410-2 ####[facility]ATORYCLIA [id number] [place] [address] [place] Platelets (Bld) [#/Vol] 194 10*3/uL Normal 150-400 [facility] Comment on above: Order Comment: Speci men Type: BLOOD SPECIMEN Performed By: #### 5 8410-2 ####[facility]ATORYCLIA [id number] [address] [place] RBC (Bld) [#/Vol] 3.81 10*6/uL Low 4.20-6.00 [facility] Comment on above: Order Comment: Speci men Type: BLOOD SPECIMEN Performed By: #### 5 8410-2 ####[facility]ATORYCLIA [id number] [address] [facility] WBC (Bld) [#/Vol] 9.22 10*3/uL Normal 3.70-11.00 [facility] Comment on above: Order Comment: Speci men Type: BLOOD SPECIMEN Performed By: #### 5 8410-2 ####[facility]ORATORYCLIA [id number] [address] [facility] CONSULT PROGon 06-02-2021 CONSULT PROG Normal [facility] CSF MANUAL DIFFon 06-02-2021 DIF TTL, CSF 25 cells counted Normal [facility] Comment on above: Order Comment: Speci men Type: CEREBROSPINAL FLUID Performed By: #### 3 4563-7, [id number], [id number] ####[facility]ATORYCLIA [id number] [address] [place] LYMPH%, CSF 4 % Low 50-90 [facility] Comment on above: Order Comment: Speci men Type: CEREBROSPINAL FLUID Performed By: #### 3 4563-7, [id number], [id number] ####[facility]ORYCLIA [id number] [address] [place] MACRO%, CSF 4 % High <1 [facility] Comment on above: Order Comment: Speci men Type: CEREBROSPINAL FLUID Performed By: #### 3 4563-7, [id number], [id number] ####[facility]ORYCLIA [id number] [place], [place] [id number] [place] [address] [place] MONO%, CSF 20 % Normal 10-50 [facility] Comment on above: Order Comment: Speci men Type: CEREBROSPINAL FLUID Performed By: #### 3 4563-7, [id number], VCG3753 ####[facility]ATORYCLIA [id number] [address] [place] NEUT%, CSF 72 % High 0-3 [facility] Comment on above: Order Comment: Speci men Type: CEREBROSPINAL FLUID Performed By: #### 3 4563-7, [id number], [id number] ####[facility]ATORYCLIA [id number] [address] CSF PATHOLOGIST INTERP (LAB REFLEX ORDER-NO BILL)on 06-02-2021 CSF STAFF REVIEW Negative Normal [facility] Comment on above: Order Comment: Speci men Type: CEREBROSPINAL FLUID Performed By: #### 3 4563-7, [id number], BEC1035 ####[facility]ATORYCLIA [id number] [address] Pathologist name Reviewed by Amador Stevens MD [facility] Comment on above: Order Comment: Speci men Type: CEREBROSPINAL FLUID Performed By: #### 3 4563-7, [id number], [id number] ####[facility]ATORYCLIA [id number] [address] Cell count panel (CSF)on Clarity (CSF) Clear Normal Clear [facility] Comment on above: Order Comment: Speci men Type: CEREBROSPINAL FLUID Performed By: #### 3 4563-7, [id number], [id number] ####[facility]ORYCLIA [id number] [address] Clarity (Unsp spec) Not Indicated Normal Clear [facility] Comment on above: Order Comment: Speci men Type: CEREBROSPINAL FLUID Performed By: #### 3 4563-7, SWV3342, TYP8265 ####[facility]ORYCLIA [id number] [address] Color (CSF) Colorless Normal Colorless [facility] Comment on above: Order Comment: Speci men Type: CEREBROSPINAL FLUID Performed By: #### 3 4563-7, [id number], RGM6500 ####[facility]ORYCLIA [id number] [address] Color (Spun CSF) Not Indicated Normal Colorless [facility] Comment on above: Order Comment: Speci men Type: CEREBROSPINAL FLUID Performed By: #### 3 4563-7, RHX5079, IMR7610 ####[facility]ATORYCLIA [id number] [address] CSF TUBE NUMBER [employer] Normal [facility] Comment on above: Order Comment: Speci men Type: CEREBROSPINAL FLUID Performed By: #### 3 4563-7, BGV3695, VYJ4873 ####[facility]ATORYCLIA [id number] [address] RBC Manual cnt (CSF) [#/Vol] 117 cells/uL High 0-5 [facility] Comment on above: Order Comment: Speci men Type: CEREBROSPINAL FLUID Performed By: #### 3 4563-7, RSF5613, VMU9448 ####[facility]ORYCLIA [id number] [address] WBC Manual cnt (CSF) [#/Vol] 1 cells/uL Normal 0-5 [facility] Comment on above: Order Comment: Speci men Type: CEREBROSPINAL FLUID Performed By: #### 3 4563-7, [id number], [id number] ####[facility]ATORYCLIA [id number] [address] Glucose CSF-mCncon 2 Glucose (CSF) [Mass/Vol] [...] Glucose HK (GLUC3) [package insert V 12.0 [place]ian]. [employer], [place], [place]. September 2015. 2. Michelle Moore, Loki HGarfield (2015). Chapter 7: Glucose and Lactate. Marianela Rothman.(eds.), Cerebrospinal Fluid in Clinical Neurology. [place]: [employer]. Performed By: #### 2 342-4 ####[facility]ATORYCLIA [id number] [address] HEPATIC FUNCTION PNLon 06-02 Albumin [Mass/Vol] 3.2 g/dL Low 3.9-4.9 [facility] Comment on above: Order Comment: Speci men Type: BLOOD SPECIMEN Performed By: #### [place], [address]-8 ####[facility]ATORYCLIA [id number] [address] ALP [Catalytic activity/Vol] 67 U/L Normal 38-113 [facility] Comment on above: Order Comment: Speci men Type: BLOOD SPECIMEN Performed By: #### H FP, 81661-2 ####[facility]ORYCLIA [id number] [address] ALT With P-5'-P [Catalytic activity/Vol] 16 U/L Normal 10-54 [facility] Comment on above: Order Comment: Speci men Type: BLOOD SPECIMEN Performed By: #### [place], 24335-4 ####[facility]CLIA [id number] [address] AST With P-5'-P [Catalytic activity/Vol] 25 U/L Normal 14-40 [facility] Comment on above: Order Comment: Speci men Type: BLOOD SPECIMEN Performed By: #### [place], [address]-5 ####[facility]ORYCLIA [id number] [address] Bilirubin [Mass/Vol] 0.2 mg/dL Normal 0.2-1.3 [facility] Comment on above: Order Comment: Speci men Type: BLOOD SPECIMEN Performed By: #### Marin KATHIE, 36557-5 ####[facility]ORYCLIA [id number] [address] Bilirubin.conjugated [Mass/Vol] mg/dL Normal <0.2 [facility] Comment on above: Order Comment: Speci men Type: BLOOD SPECIMEN Performed By: #### Marin KATHIE, 92763-4 ####[facility]ORYCLIA [id number] [address] Protein [Mass/Vol] 5.8 g/dL Low 6.3-8.0 [facility] Comment on above: Order Comment: Speci men Type: BLOOD SPECIMEN Performed By: #### Marin KATHIE, 23427-5 ####[facility]ORYCLIA [id number] [address] MRI BRAIN WO/W IVCONon 06-02 MRI BRAIN WO/W IVCON Normal [facility] Magnesium SerPl-mCncon 06-02 Magnesium [Mass/Vol] 2.0 mg/dL Normal 1.7-2.3 [facility] Comment on above: Order Comment: Speci men Type: BLOOD SPECIMEN Performed By: #### 2 4321-2, 99099-9, 2777-1 ####[facility]ORYCLIA [id number] [address] NT-proBNP SerPl-mCncon 06-02 Natriuretic peptide.B prohormone N-Terminal [Mass/Vol] 296 pg/mL High <125 [facility] Comment on above: Order Comment: Speci men Type: BLOOD SPECIMEN Performed By: #### Marin KATHIE, 73953-5 ####[facility]ORYCLIA [id number] [address] POTASSIUM BLDon 06-02-2021 Potassium [Moles/Vol] 3.2 mmol/L Low 3.7-5.1 [facility] Comment on above: Order Comment: Speci men Type: BLOOD SPECIMEN Performed By: #### K 1 ####[facility]ATORYCLIA [id number] [address] [place] Phosphate SerPl-mCncon 06-02 Phosphate [Mass/Vol] 2.1 mg/dL Low 2.7-4.8 [facility] Comment on above: Order Comment: Speci men Type: BLOOD SPECIMEN Performed By: #### 2 4321-2, 11250-6, 2777-1 ####[facility]ATORYCLIA [id number] [address] [place] Vancomycin random [Mass/Vol] on 06-02-2021 Vancomycin [Mass/Vol] 18.8 ug/mL Normal 10.0-20.0 [facility] Comment on above: Order Comment: Speci men Type: BLOOD SPECIMEN Result Comment: Refe rence ranges and high/low indicator flags are provided as general guidelines only. The treating physician must determine appropriate target levels/dosing based on the specific clinical situation. Performed By: #### 4 091-5 ####[facility]ATORYCLIA [id number] [address] [place] ALLIED HEALTHon 06-01-2021 ALLIED HEALTH Normal [facility] ALLIED HEALTH Normal [facility] HEALTH Normal [facility] ARTERIAL BLOOD GASESon 06-01 Base excess Calc (Bld) [Moles/Vol] 1 mmol/L Normal 0-2 [facility] Comment on above: Order Comment: Speci men Type: ARTERIAL BLOOD SPECIMEN Performed By: #### A LLBG ####[facility]ORATORYCLIA [id number] [address] OF [facility] Body temperature 97.52 [degF] Normal [facility] Comment on above: Order Comment: Speci men Type: ARTERIAL BLOOD SPECIMEN Performed By: #### A LLBG ####[facility]ATORYCLIA [id number] [address] [place] CALCIUM IONIZED, PH CORRECTED 1.13 mmol/L Normal 1.08-1.30 [facility] Comment on above: Order Comment: Speci men Type: ARTERIAL BLOOD SPECIMEN Performed By: #### A LLBG ####[facility]ORYCLIA [id number] [address] Calcium.ionized (BldV) [Mass/Vol] 1.12 mmol/L Normal 1.08-1.30 [facility] Comment on above: Order Comment: Speci men Type: ARTERIAL BLOOD SPECIMEN Performed By: #### A LLBG ####[facility]ORYCLIA [id number] [address] Carboxyhemoglobin (BldA) [Mass fraction] 1.6 % Normal 0.0-2.0 [facility] Comment on above: Order Comment: Speci men Type: ARTERIAL BLOOD SPECIMEN Result Comment: Carb oxyhemoglobin Reference Range for Smokers: 2.0-8.0% Performed By: #### A LLBG ####[facility]ORYCLIA [id number] [address] CO2 (Bld) [Partial pressure] 41 mm Hg Normal 36-46 [facility] Comment on above: Order Comment: Speci men Type: ARTERIAL BLOOD SPECIMEN Performed By: #### A LLBG ####[facility]ORYCLIA [id number] [address] CO2 [Moles/Vol] 23.0 mmol/L Normal 22-28 [facility] Comment on above: Order Comment: Speci men Type: ARTERIAL BLOOD SPECIMEN Performed By: #### A LLBG ####[facility]ORYCLIA [id number] [address] CO2 adjusted to patient's actual temperature (Bld) [Partial pressure] 40 mmHg Normal 36-46 [facility] Comment on above: Order Comment: Speci men Type: ARTERIAL BLOOD SPECIMEN Performed By: #### A LLBG ####[facility]ORYCLIA [id number] [address] FIO2 40 % Normal [facility] Comment on above: Order Comment: Speci men Type: ARTERIAL BLOOD SPECIMEN Performed By: #### A LLBG ####[facility]ORYCLIA [id number] [address] Glucose [Mass/Vol] 127 mg/dL High 60-105 [facility] Comment on above: Order Comment: Speci men Type: ARTERIAL BLOOD SPECIMEN Performed By: #### A LLBG ####[facility]ORYCLIA [id number] [address] HCO3 (Bld) [Moles/Vol] 25 mmol/L Normal 22-26 [facility] Comment on above: Order Comment: Speci men Type: ARTERIAL BLOOD SPECIMEN Performed By: #### A LLBG ####[facility]ORYCLIA [id number] [address] Hematocrit (Bld) [Volume fraction] 33.7 % Low 39.0-51.0 [facility] Comment on above: Order Comment: Speci men Type: ARTERIAL BLOOD SPECIMEN Performed By: #### A LLBG ####[facility]ATORYCLIA [id number] [address] Hemoglobin (Bld) [Mass/Vol] 10.9 g/dL Low 13.0-17.0 [facility] Comment on above: Order Comment: Speci men Type: ARTERIAL BLOOD SPECIMEN Performed By: #### A LLBG ####[facility]ATORYCLIA [id number] [address] INHALED TIDAL VOLUME (ML) 500 Normal [facility] Comment on above: Order Comment: Speci men Type: ARTERIAL BLOOD SPECIMEN Performed By: #### A LLBG ####[facility]ORYCLIA [id number] [address] INVASIVE VENTILATOR MODE PRVC=Pressure Regulated Volume Control [facility] Comment on above: Order Comment: Speci men Type: ARTERIAL BLOOD SPECIMEN Performed By: #### A LLBG ####[facility]ORYCLIA [id number] [place] [address] [place] Methemoglobin (Bld) [Mass fraction] % Normal 0.0-1.5 [facility] Comment on above: Order Comment: Speci men Type: ARTERIAL BLOOD SPECIMEN Performed By: #### A LLBG ####[facility]ORATORYCLIA [id number] [address] [place] O2 THERAPY Ventilator Normal [facility] Comment on above: Order Comment: Speci men Type: ARTERIAL BLOOD SPECIMEN Performed By: #### A LLBG ####[facility]ORATORYCLIA [id number] [address] [place] Oxygen (Bld) [Partial pressure] 64 mm Hg Low 85-95 [facility] Comment on above: Order Comment: Speci men Type: ARTERIAL BLOOD SPECIMEN Performed By: #### A LLBG ####[facility]ATORYCLIA [id number] [address] [place] Oxygen adjusted to patient's actual temperature (Bld) [Partial pressure] 61.8 mmHg Low 85-95 [facility] Comment on above: Order Comment: Speci men Type: ARTERIAL BLOOD SPECIMEN Performed By: #### A LLBG ####[facility]ORYCLIA [id number] [address] [place] OXYGEN SATURATION, ARTERIAL 94 % Low 95-98 [facility] Comment on above: Order Comment: Speci men Type: ARTERIAL BLOOD SPECIMEN Performed By: #### A LLBG ####[facility]ORYCLIA [id number] [address] [place] Oxyhemoglobin (BldA) [Mass fraction] 92 % Low 95-98 [facility] Comment on above: Order Comment: Speci men Type: ARTERIAL BLOOD SPECIMEN Performed By: #### A LLBG ####[facility]ORYCLIA [id number] [address] [place] PEEP/CPAP 5 cmH2O Normal [facility] Comment on above: Order Comment: Speci men Type: ARTERIAL BLOOD SPECIMEN Performed By: #### A LLBG ####[facility]ORYCLIA [id number] [address] pH (Bld) 7.40 [pH] Normal 7.35-7.45 [facility] Comment on above: Order Comment: Speci men Type: ARTERIAL BLOOD SPECIMEN Performed By: #### A LLBG ####[facility]ORYCLIA [id number] [address] pH adjusted to patient's actual temperature (Bld) 7.41 Normal 7.35-7.45 [facility] Comment on above: Order Comment: Speci men Type: ARTERIAL BLOOD SPECIMEN Performed By: #### A LLBG ####[facility]ORYCLIA [id number] [address] Potassium [Moles/Vol] 3.1 mmol/L Low 3.5-5.0 [facility] Comment on above: Order Comment: Speci men Type: ARTERIAL BLOOD SPECIMEN Performed By: #### A LLBG ####[facility]ORYCLIA [id number] [address] SET VENTILATOR RESPIRATORY RATE (BPM) 18 BPM Normal [facility] Comment on above: Order Comment: Speci men Type: ARTERIAL BLOOD SPECIMEN Performed By: #### A LLBG ####[facility]ORYCLIA [id number] [address] [place] Sodium [Moles/Vol] 141 mmol/L Normal 136-144 [facility] Comment on above: Order Comment: Speci men Type: ARTERIAL BLOOD SPECIMEN Performed By: #### A LLBG ####[facility]ORYCLIA [id number] [address] [place] BASE DEFICIT, ARTERIAL -1.0 mmol/L Normal -2-0 [facility] Comment on above: Order Comment: Speci men Type: ARTERIAL BLOOD SPECIMEN Performed By: #### A LLBG ####[facility]ORYCLIA [id number] [address] [place] Body temperature 98.24 [degF] Normal [facility] Comment on above: Order Comment: Speci men Type: ARTERIAL BLOOD SPECIMEN Performed By: #### A LLBG ####[facility]ORYCLIA [id number] [address] CALCIUM IONIZED, PH CORRECTED 1.08 mmol/L Normal 1.08-1.30 [facility] Comment on above: Order Comment: Speci men Type: ARTERIAL BLOOD SPECIMEN Performed By: #### A LLBG ####[facility]ORYCLIA [id number] [address] Calcium.ionized (BldV) [Mass/Vol] 1.15 mmol/L Normal 1.08-1.30 [facility] Comment on above: Order Comment: Speci men Type: ARTERIAL BLOOD SPECIMEN Performed By: #### A LLBG ####[facility]ORYCLIA [id number] [address] Carboxyhemoglobin (BldA) [Mass fraction] 1.4 % Normal 0.0-2.0 [facility] Comment on above: Order Comment: Speci men Type: ARTERIAL BLOOD SPECIMEN Result Comment: Carb oxyhemoglobin Reference Range for Smokers: 2.0-8.0% Performed By: #### A LLBG ####[facility]ORYCLIA [id number] [address] CO2 (Bld) [Partial pressure] 59 mm Hg High 36-46 [facility] Comment on above: Order Comment: Speci men Type: ARTERIAL BLOOD SPECIMEN Performed By: #### A LLBG ####[facility]ORYCLIA [id number] [address] CO2 [Moles/Vol] 24.5 mmol/L Normal 22-28 [facility] Comment on above: Order Comment: Speci men Type: ARTERIAL BLOOD SPECIMEN Performed By: #### A LLBG ####[facility]ORYCLIA [id number] [address] CO2 adjusted to patient's actual temperature (Bld) [Partial pressure] 58 mmHg High 36-46 [facility] Comment on above: Order Comment: Speci men Type: ARTERIAL BLOOD SPECIMEN Performed By: #### A LLBG ####[facility]ORYCLIA [id number] [address] FIO2 40 % Normal [facility] Comment on above: Order Comment: Speci men Type: ARTERIAL BLOOD SPECIMEN Performed By: #### A LLBG ####[facility]ORYCLIA [id number] [address] Glucose [Mass/Vol] 128 mg/dL High 60-105 [facility] Comment on above: Order Comment: Speci men Type: ARTERIAL BLOOD SPECIMEN Performed By: #### A LLBG ####[facility]ORYCLIA [id number] [address] HCO3 (Bld) [Moles/Vol] 26 mmol/L Normal 22-26 [facility] Comment on above: Order Comment: Speci men Type: ARTERIAL BLOOD SPECIMEN Performed By: #### A LLBG ####[facility]ORYCLIA [id number] [address] Hematocrit (Bld) [Volume fraction] 35.6 % Low 39.0-51.0 [facility] Comment on above: Order Comment: Speci men Type: ARTERIAL BLOOD SPECIMEN Performed By: #### A LLBG ####[facility]ORYCLIA [id number] [address] OF [facility] Hemoglobin (Bld) [Mass/Vol] 11.5 g/dL Low 13.0-17.0 [facility] Comment on above: Order Comment: Speci men Type: ARTERIAL BLOOD SPECIMEN Performed By: #### A LLBG ####[facility]ORYCLIA [id number] [address] INHALED TIDAL VOLUME (ML) 500 Normal [facility] Comment on above: Order Comment: Speci men Type: ARTERIAL BLOOD SPECIMEN Performed By: #### A LLBG ####[facility]ORYCLIA [id number] [address] INVASIVE VENTILATOR MODE PRVC=Pressure Regulated Volume Control Normal [facility] Comment on above: Order Comment: Speci men Type: ARTERIAL BLOOD SPECIMEN Performed By: #### A LLBG ####[facility]ORYCLIA [id number] [address] Methemoglobin (Bld) [Mass fraction] % Normal 0.0-1.5 [facility] Comment on above: Order Comment: Speci men Type: ARTERIAL BLOOD SPECIMEN Performed By: #### A LLBG ####[facility]ORYCLIA [id number] [address] O2 THERAPY Ventilator Normal [facility] Comment on above: Order Comment: Speci men Type: ARTERIAL BLOOD SPECIMEN Performed By: #### A LLBG ####[facility]ORYCLIA [id number] [address] Oxygen (Bld) [Partial pressure] 88 mm Hg Normal 85-95 [facility] Comment on above: Order Comment: Speci men Type: ARTERIAL BLOOD SPECIMEN Performed By: #### A LLBG ####[facility]ORYCLIA [id number] [address] Oxygen adjusted to patient's actual temperature (Bld) [Partial pressure] 86.5 mmHg Normal 85-95 [facility] Comment on above: Order Comment: Speci men Type: ARTERIAL BLOOD SPECIMEN Performed By: #### A LLBG ####[facility]ORYCLIA [id number] [address] OXYGEN SATURATION, ARTERIAL 95 % Normal 95-98 [facility] Comment on above: Order Comment: Speci men Type: ARTERIAL BLOOD SPECIMEN Performed By: #### A LLBG ####[facility]ORYCLIA [id number] [address] Oxyhemoglobin (BldA) [Mass fraction] 93 % Low 95-98 [facility] Comment on above: Order Comment: Speci men Type: ARTERIAL BLOOD SPECIMEN Performed By: #### A LLBG ####[facility]ORYCLIA [id number] [address] PEEP/CPAP 5 cmH2O Normal [facility] Comment on above: Order Comment: Speci men Type: ARTERIAL BLOOD SPECIMEN Performed By: #### A LLBG ####[facility]ORYCLIA [id number] [address] [place] pH (Bld) 7.27 [pH] Low 7.35-7.45 [facility] Comment on above: Order Comment: Speci men Type: ARTERIAL BLOOD SPECIMEN Performed By: #### A LLBG ####[facility]ORYCLIA [id number] [address] pH adjusted to patient's actual temperature (Bld) 7.28 Low 7.35-7.45 [facility] Comment on above: Order Comment: Speci men Type: ARTERIAL BLOOD SPECIMEN Performed By: #### A LLBG ####[facility]ORYCLIA [id number] [address] Potassium [Moles/Vol] 3.3 mmol/L Low 3.5-5.0 [facility] Comment on above: Order Comment: Speci men Type: ARTERIAL BLOOD SPECIMEN Performed By: #### A LLBG ####[facility]ORYCLIA [id number] [address] SET VENTILATOR RESPIRATORY RATE (BPM) 14 BPM Normal [facility] Comment on above: Order Comment: Speci men Type: ARTERIAL BLOOD SPECIMEN Performed By: #### A LLBG ####[facility]ORYCLIA [id number] [address] [place] Sodium [Moles/Vol] 141 mmol/L Normal 136-144 [facility] Comment on above: Order Comment: Speci men Type: ARTERIAL BLOOD SPECIMEN Performed By: #### A LLBG ####[facility]ORYCLIA [id number] [address] Bacteria CSF Culton 06-01-19 22 Bacteria identified Cx Nom (CSF) CULTURE, CSF: No growth 14 days GRAM STAIN: No organisms seen Rare Polymorphonuclear leukocytes Moderate Red Blood Cells Gram stain performed on cytospun specimen. Normal [facility] Comment on above: Performed By: #### 6 06-4 ####[facility] LABORATORYCLIA [id number] [address] STATES OF [facility] Bacteria Spec Resp Culton Bacteria identified Respiratory culture Nom (Unsp spec) CULTURE, RESPIRATORY: No growth 2 days GRAM STAIN: No organisms seen No Polymorphonuclear Leukocytes Normal [facility] Comment on above: Performed By: #### 3 2355-0 ####[facility]ORATORYCLIA [id number] [address] OF [facility] Basic metabolic 2000 panelon 06-01-2021 Anion gap [Moles/Vol] 8 mmol/L Low 9-18 [facility] Comment on above: Order Comment: Speci men Type: BLOOD SPECIMEN Performed By: #### 2 4321-2, , 2776-05 ####[facility] LABORATORYCLIA [id number] [place] [address] [place] Calcium [Mass/Vol] 7.8 mg/dL Low 8.5-10.2 [facility] Comment on above: Order Comment: Speci men Type: BLOOD SPECIMEN Performed By: #### 2 4321-2, , 2776-05 ####[facility]ORATORYCLIA [id number] [place] [address] [place] Chloride [Moles/Vol] 109 mmol/L High 97-105 [facility] Comment on above: Order Comment: Speci men Type: BLOOD SPECIMEN Performed By: #### 2 4321-2, , 2776-05 ####[facility]ORATORYCLIA [id number] [place] [address] [place] CO2 [Moles/Vol] 26 mmol/L Normal 22-30 [facility] Comment on above: Order Comment: Speci men Type: BLOOD SPECIMEN Performed By: #### 2 4321-2, 71110-92776-05 ####[facility] LABORATORYCLIA [id number] [place] [address] [place] Creatinine [Mass/Vol] 0.82 mg/dL Normal 0.73-1.22 [facility] Comment on above: Order Comment: Speci men Type: BLOOD SPECIMEN Performed By: #### 2 4321-2, , 2776-05 ####[facility]CLIA [id number] [place] [id number] [place] GFR/1.73 sq M.predicted [...] Performed By: #### 2 4321-2, , 2776-05 ####[facility] [id number] [place] [id number] [place] Glucose [Mass/Vol] 105 mg/dL High 74-99 [facility] Comment on above: Order Comment: [facility] Type: BLOOD SPECIMEN Result Comment: [employer] [place] [...] Performed By: #### 2 4321-2, , 2776-05 ####[facility]ORATORYCLIA [id number] [address] OF [facility] Potassium [Moles/Vol] 3.8 mmol/L Normal 3.7-5.1 [facility] Comment on above: Order Comment: Speci men Type: BLOOD SPECIMEN Performed By: #### 2 4321-2, , 2776-05 ####[facility]ATORYCLIA [id number] [address] Sodium [Moles/Vol] 143 mmol/L Normal 136-144 [facility] Comment on above: Order Comment: Speci men Type: BLOOD SPECIMEN Performed By: #### 2 4321-2, , 2776-05 ####[facility]ATORYCLIA [id number] [address] Urea nitrogen [Mass/Vol] 15 mg/dL Normal 9-24 [facility] Comment on above: Order Comment: Speci men Type: BLOOD SPECIMEN Performed By: #### 2 4321-2, , 2776-05 ####[facility]ATORYCLIA [id number] [address] CBC panel Auto (Bld)on 06-01 Erythrocyte distribution width (RBC) [Ratio] 15.4 % High 11.5-15.0 [facility] Comment on above: Order Comment: Speci men Type: BLOOD SPECIMEN Performed By: #### 5 8410-2 ####[facility]ORATORYCLIA [id number] [address] Hematocrit (Bld) [Volume fraction] 38.4 % Low 39.0-51.0 [facility] Comment on above: Order Comment: Speci men Type: BLOOD SPECIMEN Performed By: #### 5 8410-2 ####[facility]ATORYCLIA [id number] [address] Hemoglobin (Bld) [Mass/Vol] 11.1 g/dL Low 13.0-17.0 [facility] Comment on above: Order Comment: Speci men Type: BLOOD SPECIMEN Performed By: #### 5 8410-2 ####[facility]ORATORYCLIA [id number] [address] MCH (RBC) [Entitic mass] 26.9 pg Normal 26.0-34.0 [facility] Comment on above: Order Comment: Speci men Type: BLOOD SPECIMEN Performed By: #### 5 8410-2 ####[facility]ATORYCLIA [id number] [address] MCHC (RBC) [Mass/Vol] 28.9 g/dL Low 30.5-36.0 [facility] Comment on above: Order Comment: Speci men Type: BLOOD SPECIMEN Performed By: #### 5 8410-2 ####[facility]ORATORYCLIA [id number] [address] MCV (RBC) [Entitic vol] 93.2 fL Normal 80.0-100.0 [facility] Comment on above: Order Comment: Speci men Type: BLOOD SPECIMEN Performed By: #### 5 8410-2 ####[facility]ORATORYCLIA [id number] [address] Nucleated RBC (Bld) [#/Vol] 10*3/uL Normal <0.01 [facility] Comment on above: Order Comment: Speci men Type: BLOOD SPECIMEN Performed By: #### 5 8410-2 ####[facility]ATORYCLIA [id number] [address] Platelet mean volume (Bld) [Entitic vol] 10.2 fL Normal 9.0-12.7 [facility] Comment on above: Order Comment: Speci men Type: BLOOD SPECIMEN Performed By: #### 5 8410-2 ####[facility]ORATORYCLIA [id number] [address] OF [facility] Platelets (Bld) [#/Vol] 231 10*3/uL Normal 150-400 [facility] Comment on above: Order Comment: Speci men Type: BLOOD SPECIMEN Performed By: #### 5 8410-2 ####[facility]ATORYCLIA [id number] [address] OF [facility] RBC (Bld) [#/Vol] 4.12 10*6/uL Low 4.20-6.00 [facility] Comment on above: Order Comment: Speci men Type: BLOOD SPECIMEN Performed By: #### 5 8410-2 ####[facility]ATORYCLIA [id number] [address] WBC (Bld) [#/Vol] 10.99 10*3/uL Normal 3.70-11.00 [facility] Comment on above: Order Comment: Speci men Type: BLOOD SPECIMEN Performed By: #### 5 8410-2 ####[facility]ATORYCLIA [id number] [address] CONSULT PROGon 06-01-2021 CONSULT PROG Normal [facility] CSF MANUAL DIFFon 06-01-2021 DIF TTL, CSF 100 cells counted Normal [facility] Comment on above: Order Comment: Speci men Type: CEREBROSPINAL FLUID Performed By: #### 3 4563-7, [id number] ####[facility]ORATORYCLIA [id number] [address] [place] LYMPH%, CSF 11 % Low 50-90 [facility] Comment on above: Order Comment: Speci men Type: CEREBROSPINAL FLUID Performed By: #### 3 4563-7, [id number] ####[facility]ORYCLIA [id number] [address] [place] MONO%, CSF 10 % Normal 10-50 [facility] Comment on above: Order Comment: Speci men Type: CEREBROSPINAL FLUID Performed By: #### 3 4563-7, [id number] ####[facility]ORYCLIA [id number] [address] NEUT%, CSF 79 % High 0-3 [facility] Comment on above: Order Comment: Speci men Type: CEREBROSPINAL FLUID Performed By: #### 3 4563-7, [id number] ####[facility]ORYCLIA [id number] [address] BRAIN WO IVCONon 06-01-19 CT BRAIN WO IVCON Normal [facility] Cell count panel (CSF)on Clarity (CSF) Clear Normal Clear [facility] Comment on above: Order Comment: Speci men Type: CEREBROSPINAL FLUID Performed By: #### 3 4563-7, [id number] ####[facility]ORYCLIA [id number] [address] Clarity (Unsp spec) Not Indicated Normal Clear [facility] Comment on above: Order Comment: Speci men Type: CEREBROSPINAL FLUID Performed By: #### 3 4563-7, [id number] ####[facility]ORYCLIA [id number] [address] Color (CSF) Colorless Normal Colorless [facility] Comment on above: Order Comment: Speci men Type: CEREBROSPINAL FLUID Performed By: #### 3 4563-7, [id number] ####[facility]ORYCLIA [id number] [address] Color (Spun CSF) Not Indicated Normal Colorless [facility] Comment on above: Order Comment: Speci men Type: CEREBROSPINAL FLUID Performed By: #### 3 4563-7, [id number] ####[facility]ORYCLIA [id number] [address] CSF TUBE NUMBER Sterile Container Normal [facility] Comment on above: Order Comment: Speci men Type: CEREBROSPINAL FLUID Performed By: #### 3 4563-7, [id number] ####[facility]ORYCLIA [id number] [address] RBC Manual cnt (CSF) [#/Vol] 171 cells/uL High 0-5 [facility] Comment on above: Order Comment: Speci men Type: CEREBROSPINAL FLUID Performed By: #### 3 4563-7, [id number] ####[facility]ATORYCLIA [id number] [address] WBC Manual cnt (CSF) [#/Vol] 5 cells/uL Normal 0-5 [facility] Comment on above: Order Comment: Speci men Type: CEREBROSPINAL FLUID Performed By: #### 3 4563-7, [id number] ####[facility]ORATORYCLIA [id number] [address] FUNGAL CULTUREon 06-01-2021 FUNGAL CULTURE CULTURE, FUNGAL: No Fungus isolated after 28 days Normal [facility] Comment on above: Performed By: #### F CUL ####[facility]ORATORYCLIA [id number] [address] Glucose CSF-mCncon 2 Glucose (CSF) [Mass/Vol] [...] Glucose HK (GLUC3) [package insert V 12.0 [place]ian]. [employer], [place], [place]. September 2015. 2. Teresa HGarfield, Loki, H. (2015). Chapter 7: Glucose and Lactate. F. Irina rose al.(eds.), Cerebrospinal Fluid in Clinical Neurology. [place]: [employer]. Performed By: #### 2 342-4, 2880-3 ####[facility] LABORATORYCLIA [id number] [address] [place] HERPES SIMPLEX CSFon 022 HERPES SIMPLEX CSF HSV PCR SPEC SOURCE: Cerebrospinal Fluid HSV-1: Negative for Herpes Simplex Virus Type 1 by PCR HSV-2: Negative for Herpes Simplex Virus Type 2 by PCR Normal [facility] Comment on above: Performed By: #### H [facility] ####[facility] REFERENCE LABCLIA [id number] [id number] [address] [place] Lactate (Bld) [Moles/Vol]on 06-01-2021 Lactate [Moles/Vol] 0.5 mmol/L Normal 0.5-2.2 [facility] Comment on above: Order Comment: Speci men Type: BLOOD SPECIMEN Performed By: #### 3 2693-4 ####[facility]ORATORYCLIA [id number] [address] [place] MENINGITIS ENCEPHALITIS BIOF IREon 06-01-2021 MENINGITIS ENCEPHALITIS BIOFIRE Negative Normal [facility] Comment on above: Order Comment: Speci men Type: CEREBROSPINAL FLUID Performed By: #### M GEBF ####[facility]IA [id number] [address] Magnesium SerPl-mCncon 06-01 Magnesium [Mass/Vol] 2.2 mg/dL Normal 1.7-2.3 [facility] Comment on above: Order Comment: Speci men Type: BLOOD SPECIMEN Performed By: #### 2 4321-2, 26995-4, 2777-1 ####[facility]ORATORYCLIA [id number] [address] [place] Microorganism Spec Culton Microorganism identified Cx Nom (Unsp spec) CULTURE, AFB: No Acid Fast Bacilli isolated after 42 days AFB STAIN: No acid fast bacilli seen by flurochrome stain Normal [facility] Comment on above: Performed By: #### 1 1475-1 ####[facility]ORATORYCLIA [id number] [address] [place] PROCALCITONIN (LAB)on 2021 Procalcitonin [Mass/Vol] 0.08 ng/mL Normal <0.09 [facility] Comment on above: Order Comment: Speci men Type: BLOOD SPECIMEN Result Comment: For a guided interpretation of test results, please visit the Change in Procalcitonin Calculator, [email or web address]. Performed By: #### P SHANTELLAL ####[facility]ORATORYCLIA [id number] [address] Phosphate SerPl-mCncon 06-01 Phosphate [Mass/Vol] 3.5 mg/dL Normal 2.7-4.8 [facility] Comment on above: Order Comment: Speci men Type: BLOOD SPECIMEN Performed By: #### 2 4321-2, 20730-7, 2777-1 ####[facility]ORATORYCLIA [id number] [address] OF [facility] Prot CSF-mCncon 06-01-2021 Protein (CSF) [Mass/Vol] 52 mg/dL High 15-45 [facility] Comment on above: Order Comment: Speci men Type: CEREBROSPINAL FLUID Performed By: #### 2 342-4, 2880-3 ####[facility]ORATORYCLIA [id number] [address] Vancomycin random [Mass/Vol] on 06-01-2021 Vancomycin [Mass/Vol] 14.6 ug/mL Normal 10.0-20.0 [facility] Comment on above: Order Comment: Speci men Type: BLOOD SPECIMEN Result Comment: Refe rence ranges and high/low indicator flags are provided as general guidelines only. The treating physician must determine appropriate target levels/dosing based on the specific clinical situation. Performed By: #### 4 091-5 ####[facility]ORATORYCLIA [id number] [address] XR CHEST 1V FRONTALon 2021 XR [...] ALLIED HEALTHon 05-31-2021 ALLIED HEALTH HNO ID: [id number] Author: Christina Lynne RT(R) Service: Radiology Author [...] on above: Performed By: #### 6 00-7 ####[facility] LABORATORYCLIA [id number] [address] [place] Bacteria CSF Culton 05-31-19 22 Bacteria identified Cx Nom (CSF) CULTURE, CSF: No growth 14 days GRAM STAIN: No organisms seen Rare Polymorphonuclear leukocytes Rare Red Blood Cells Gram stain performed on cytospun specimen. Normal [facility] Comment on above: Performed By: #### 6 06-4 ####[facility] LABORATORYCLIA [id number] [place] [address] [place] Basic metabolic 2000 panelon 05-31-2021 Anion gap [Moles/Vol] 9 mmol/L Normal 9-18 [facility] Comment on above: Order Comment: Speci men Type: BLOOD SPECIMEN Performed By: #### 2 777-1, 95040-2, 28958-9 ####[facility]ORATORYCLIA [id number] [place] [address] [place] Calcium [Mass/Vol] 8.2 mg/dL Low 8.5-10.2 [facility] Comment on above: Order Comment: Speci men Type: BLOOD SPECIMEN Performed By: #### 2 777-1, , ####[facility]ORATORYCLIA [id number] [address] STATES OF [facility] Chloride [Moles/Vol] 110 mmol/L High 97-105 [facility] Comment on above: Order Comment: Speci men Type: BLOOD SPECIMEN Performed By: #### 2 777-1, 92470-2, ####[facility] LABORATORYCLIA [id number] [address] STATES [facility] CO2 [Moles/Vol] 27 mmol/L Normal 22-30 [facility] Comment on above: Order Comment: Speci men Type: BLOOD SPECIMEN Performed By: #### 2 777-1, , ####[facility]ORATORYCLIA [id number] [address] STATES OF [facility] Creatinine [Mass/Vol] 0.85 mg/dL Normal 0.73-1.22 [facility] Comment on above: Order Comment: Speci men Type: BLOOD SPECIMEN Performed By: #### 2 777-1, , ####[facility]ORATORYCLIA [id number] [address] [place] GFR/1.73 sq M.predicted [...] GFR. Performed By: #### 2 777-1, , ####[facility] LABORATORYCLIA [id number] [place] [address] [place] Glucose [Mass/Vol] 111 [...] 1). Performed By: #### 2 777-1, , ####[facility]ORATORYCLIA [id number] [place] [address] [place] Potassium [Moles/Vol] 3.7 mmol/L Normal 3.7-5.1 [facility] Comment on above: Order Comment: Speci men Type: BLOOD SPECIMEN Performed By: #### 2 777-1, , ####[facility]ORATORYCLIA [id number] [place] [address] [place] Sodium [Moles/Vol] 146 mmol/L High 136-144 [facility] Comment on above: Order Comment: Speci men Type: BLOOD SPECIMEN Performed By: #### 2 777-1, , ####[facility]ORATORYCLIA [id number] [address] [place] Urea nitrogen [Mass/Vol] 16 mg/dL Normal 9-24 [facility] Comment on above: Order Comment: Speci men Type: BLOOD SPECIMEN Performed By: #### 2 777-1, , 07253-7 ####[facility]ORYCLIA [id number] [address] OF [facility] CASE MGT INIT ASSESon 2021 CASE MGT INIT ASSES Normal [facility] CBC W Auto Differential pane l (Bld)on 05-31-2021 Basophils (Bld) [#/Vol] 0.04 10*3/uL Normal <0.11 [facility] Comment on above: Order Comment: Speci men Type: BLOOD SPECIMEN Performed By: #### 5 7021-8 ####[facility]ORYCLIA [id number] [address] Basophils/100 WBC (Bld) 0.5 % Normal [facility] Comment on above: Order Comment: Speci men Type: BLOOD SPECIMEN Performed By: #### 5 7021-8 ####[facility]ORYCLIA [id number] [address] Differential cell count method Nom (Bld) Auto Normal [facility] Comment on above: Order Comment: Speci men Type: BLOOD SPECIMEN Performed By: #### 5 7021-8 ####[facility]ORYCLIA [id number] [address] STATES OF [facility] Eosinophils (Bld) [#/Vol] 0.27 10*3/uL Normal <0.46 [facility] Comment on above: Order Comment: Speci men Type: BLOOD SPECIMEN Performed By: #### 5 7021-8 ####[facility]ORYCLIA [id number] [address] STATES [facility] Eosinophils/100 WBC (Bld) 3.3 % Normal [facility] Comment on above: Order Comment: Speci men Type: BLOOD SPECIMEN Performed By: #### 5 7021-8 ####[facility]ORYCLIA [id number] [address] OF [place] Erythrocyte distribution width (RBC) [Ratio] 15.4 % High 11.5-15.0 [facility] Comment on above: Order Comment: Speci men Type: BLOOD SPECIMEN Performed By: #### 5 7021-8 ####[facility]ATORYCLIA [id number] [address] Hematocrit (Bld) [Volume fraction] 37.9 % Low 39.0-51.0 [facility] Comment on above: Order Comment: Speci men Type: BLOOD SPECIMEN Performed By: #### 5 7021-8 ####[facility]ATORYCLIA [id number] [address] Hemoglobin (Bld) [Mass/Vol] 11.5 g/dL Low 13.0-17.0 [facility] Comment on above: Order Comment: Speci men Type: BLOOD SPECIMEN Performed By: #### 5 7021-8 ####[facility]ATORYCLIA [id number] [address] IMMATURE GRAN % 0.4 % Normal [facility] Comment on above: Order Comment: Speci men Type: BLOOD SPECIMEN Performed By: #### 5 7021-8 ####[facility]ORYCLIA [id number] [address] IMMATURE GRAN ABS 0.03 k/uL Normal <0.10 [facility] Comment on above: Order Comment: Speci men Type: BLOOD SPECIMEN Performed By: #### 5 7021-8 ####[facility]ORYCLIA [id number] [address] Lymphocytes (Bld) [#/Vol] 1.90 10*3/uL Normal 1.00-4.00 [facility] Comment on above: Order Comment: Speci men Type: BLOOD SPECIMEN Performed By: #### 5 7021-8 ####[facility]ORYCLIA [id number] [address] Lymphocytes/100 WBC (Bld) 23.0 % Normal [facility] Comment on above: Order Comment: Speci men Type: BLOOD SPECIMEN Performed By: #### 5 7021-8 ####[facility]ATORYCLIA [id number] [address] MCH (RBC) [Entitic mass] 28.0 pg Normal 26.0-34.0 [facility] Comment on above: Order Comment: Speci men Type: BLOOD SPECIMEN Performed By: #### 5 7021-8 ####[facility]ORATORYCLIA [id number] [address] MCHC (RBC) [Mass/Vol] 30.3 g/dL Low 30.5-36.0 [facility] Comment on above: Order Comment: Speci men Type: BLOOD SPECIMEN Performed By: #### 5 7021-8 ####[facility]ORATORYCLIA [id number] [address] MCV (RBC) [Entitic vol] 92.4 fL Normal 80.0-100.0 [facility] Comment on above: Order Comment: Speci men Type: BLOOD SPECIMEN Performed By: #### 5 7021-8 ####[facility]ORATORYCLIA [id number] [address] Monocytes (Bld) [#/Vol] 0.60 10*3/uL Normal <0.87 [facility] Comment on above: Order Comment: Speci men Type: BLOOD SPECIMEN Performed By: #### 5 7021-8 ####[facility]ORATORYCLIA [id number] [address] Monocytes/100 WBC (Bld) 7.3 % Normal [facility] Comment on above: Order Comment: Speci men Type: BLOOD SPECIMEN Performed By: #### 5 7021-8 ####[facility]ORATORYCLIA [id number] [address] Neutrophils (Bld) [#/Vol] 5.41 10*3/uL Normal 1.45-7.50 [facility] Comment on above: Order Comment: Speci men Type: BLOOD SPECIMEN Performed By: #### 5 7021-8 ####[facility]ATORYCLIA [id number] [address] Neutrophils/100 WBC (Bld) 65.5 % Normal [facility] Comment on above: Order Comment: Speci men Type: BLOOD SPECIMEN Performed By: #### 5 7021-8 ####[facility]ATORYCLIA [id number] [address] Nucleated RBC (Bld) [#/Vol] 10*3/uL Normal <0.01 [facility] Comment on above: Order Comment: Speci men Type: BLOOD SPECIMEN Performed By: #### 5 7021-8 ####[facility]ORATORYCLIA [id number] [address] Nucleated RBC/100 WBC (Bld) [Ratio] 0.0 /100 WBC Normal 0.0 [facility] Comment on above: Order Comment: Speci men Type: BLOOD SPECIMEN Performed By: #### 5 7021-8 ####[facility]ORATORYCLIA [id number] [address] Platelet mean volume (Bld) [Entitic vol] 9.8 fL Normal 9.0-12.7 [facility] Comment on above: Order Comment: Speci men Type: BLOOD SPECIMEN Performed By: #### 5 7021-8 ####[facility]ORATORYCLIA [id number] [address] OF [facility] Platelets (Bld) [#/Vol] 251 10*3/uL Normal 150-400 [facility] Comment on above: Order Comment: Speci men Type: BLOOD SPECIMEN Performed By: #### 5 7021-8 ####[facility]ORATORYCLIA [id number] [address] RBC (Bld) [#/Vol] 4.10 10*6/uL Low 4.20-6.00 [facility] Comment on above: Order Comment: Speci men Type: BLOOD SPECIMEN Performed By: #### 5 7021-8 ####[facility]ORYCLIA [id number] [address] WBC (Bld) [#/Vol] 8.25 10*3/uL Normal 3.70-11.00 [facility] Comment on above: Order Comment: Speci men Type: BLOOD SPECIMEN Performed By: #### 5 7021-8 ####[facility]ORATORYCLIA [id number] [address] CONSULTon 05-31-2021 CONSULT Normal [facility] CONSULT Normal [facility] CONSULT Normal [facility] CT BRAIN WO IVCONon 05-31-19 CT BRAIN WO IVCON Normal [facility] CT BRAIN WO IVCON Normal [facility] CT CHEST WO IVCONon 05-31-19 CT CHEST WO IVCON Normal [facility] Cortis SerPl-mCncon 05-31-19 Cortisol [Mass/Vol] 31.0 ug/dL High AM: 5.3-22.5, PM: 3.4-16.8 [facility] Comment on above: Order Comment: Speci men Type: BLOOD SPECIMEN Result Comment: Prov ided reference range is from 6-10 AM sample collection time.Cortisol Reference Range: 6-10 AM = 4.8-19.5 ug/dL, 4-8 PM = 2.5-11.9 ug/dL Performed By: #### 2 143-6, 3016-3 ####[facility]ORATORYCLIA [id number] [address] Cryptoc Ag Spec Ql LAon 05-08 Cryptococcus sp Ag LA Ql (Unsp spec) Negative Normal [facility] Comment on above: Performed By: #### 4 3228-6 ####[facility]ORATORYCLIA [id number] [address] HISTORY PHYSICALon HISTORY PHYSICAL Normal [facility] Magnesium SerPl-mCncon 05-31 Magnesium [Mass/Vol] 2.2 mg/dL Normal 1.7-2.3 [facility] Comment on above: Order Comment: Speci men Type: BLOOD SPECIMEN Performed By: #### 2 777-1, 54424-5, ####[facility]ATORYCLIA [id number] [address] [place] NURSING PROGon 05-31-2021 NURSING PROG Normal [facility] NUTRITIONon 05-31-2021 NUTRITION Normal [facility] OPERATIVE NOon 05-31-2021 OPERATIVE NO Normal [facility] Phosphate SerPl-mCncon 05-31 Phosphate [Mass/Vol] 3.3 mg/dL Normal 2.7-4.8 [facility] Comment on above: Order Comment: Speci men Type: BLOOD SPECIMEN Performed By: #### 2 777-1, 14466-8, ####[facility]ATORYCLIA [id number] [address] OF [facility] STAPH AUREUS PCRon S. aureus and MRSA panel MEGAN+probe (Nose) Normal Negative [facility] Comment on above: Order Comment: Speci men Type: SWAB OF INTERNAL NOSE Result Comment: Nega tive for Staphylococcus aureus by PCR.Negative for MRSA by PCR Performed By: #### S APCR ####[facility]ATORYCLIA [id number] [address] [place] TSH SerPl-aCncon 05-31-2021 TSH Qn 0.829 m[IU]/L Normal 0.270-4.200 [facility] Comment on above: Order Comment: Speci men Type: BLOOD SPECIMEN Performed By: #### 2 143-6, 3016-3 ####[facility]ORATORYCLIA [id number] [address] [place] XR CHEST 1V FRONTALon 2021 XR CHEST 1V FRONTAL Normal [facility] XR CHEST 1V FRONTAL Normal [facility] Blood Cultureon 05-30-2021 Bacteria identified Cx Nom (Bld) Culture Result - No growth 5 days Normal [facility] Comment on above: Performed By: #### C AD #### [facility] [address] [place] [address] [facility] [address] [place], [place] [phone] Bacteria identified Cx Nom (Bld) Sp. Request/Comment: - 8.2MLS Culture Result - No growth 5 days Normal [facility] Comment on above: Performed By: #### C AD #### [facility] [address] [place] [address] [facility] [address] [place], [place] [address] C-Reactive Proteinon 022 C-Reactive Protein 1.7 mg/dL High <0.9 [facility] Comment on above: Performed By: #### C RP ####[facility] [address] [place] [phone] CNDSon 05-30-2021 CNDS HNO ID: [id number] Author: Columba Carroll PA-C Service: Hospital Medicine Author Type: Physician National Sales Manager Type: Discharge Summary Filed: 05/30/2021 12:49 PM [...] Team: Attending Provider: Ayaka Menjivar MD Physician National Sales Manager: Columba Carroll PA-C Consulting: Lilo Mendoza MD [...] consulted. 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 Tele-neuro also suggested an MRI brain be obtained prior to LP to check HAND ENDBAND CUTTER shunt and decrease risk of herniation in neurosurgery capable facility. Transfer to [facility] requested. Sepsis lactate was 1.3. ABG showed pO2 67.8, placed patient on 2L NC.Follow B1, B12, and RPR pending. Transitions of Care Critical Issues: - patient transferred for [facility] for management of possible CLASS B TRUCK DRIVER infection and herniation. LABS AND PROCEDURES PENDING [...] q 1 (more content not included)... [facility] CONSULTon 05-30-2021 CONSULT HNO ID: [id number] Author: Juan Carlos Mckenzie MD Service: Infectious [...] vertebrae with counting from the craniocervical junction. Security Program Manager: PSCB Transcribe Date/Time: May 29 2021 8:59P Dictated by : CARLOS YOUNGER MD This examination was interpreted and the report reviewed and electronically signed by: CARLOS YOUNGER MD on May 29 2021 9:14PM EST ? CT CERVICAL SPINE WO (more content not included)... Normal [facility] CONSULT HNO ID: [id number] Author: Lilo Mendoza MD Service: Neurology General Author Type: Physician Type: Consults Filed: 05/30/2021 10:56 AM Note Text: [facility] TeleNeurology Consult Note Patient seen using [facility]. Recommendations are placed in the chart. Please review. For questions after hours, when teleneurologist is not available, for [facility]: Please Page [phone] for the [facility] Neurology Group from 12pm to 8Am Admitting Provider/Consulted by:Hermes Roca MD Time of Note:05/30/2021 Patient Name:Andrew Sifuentes Admit Date:05/29/2021 Hospital Day:0 CC: altered mental status History of Present Illness: Andrew Sifuentes is a 71 year old unknown handed male with limited information about past medical history including venous insufficiency s/p EVLT, hydrocepalus s/p HAND ENDBAND CUTTER shunt in 1987 with multiple revisions and [...] Right Lef (more content not included)... [facility] CONSULT PROGon 05-30-[address] 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 Age: [age] year old Allergies: ALLERGIES Allergen [...] Levels: No results found for: IMANI Gutierres [facility] Normal [facility] Creatinineon 05-30-2021 Creatinine [Mass/Vol] 0.86 mg/dL Normal 0.73-1.22 [facility] Comment on above: Performed By: #### C RET1 ####[facility] [address] [place] [phone] eGFR- Amer. >60 [facility] Comment on above: Performed By: #### C RET1 ####[facility] [address] [place] [phone] eGFR-All Other Races >60 Normal [facility] [...] at [email or web address]. Performed By: #### C RET1 ####[facility] [address] [place], [place] [phone] Crypto Antigen Deton 022 Crypto Antigen Det Sp. Request/Comment: - SST Test Result - Duplicate request Account Credited [facility] Comment on above: Performed By: #### C AD #### [facility] [address] [place] [phone] [facility] [address] [place] [address] Crypto Antigen Det Sp. Request/Comment: - SST Test Result - Cryptococcal antigen detection result: Negative By latex agglutination [facility] Comment on above: Performed By: #### C AD #### [facility] [address] [place] [address] [facility] [address] [place] [address] ED NOTEon 05-30-2021 ED NOTE HNO ID: [id number] Author: Aletha Lopez RN Service: ? Author Type: Registered Nurse Type: ED Notes Filed: 05/29/2021 11:16 PM Note Text: Patient changed for incontinent urine, labs redrawn and sent. Patient aware of plan to be admitted and agrees with plan Normal [facility] HISTORY PHYSICALon HISTORY PHYSICAL Normal [facility] HISTORY PHYSICAL HNO ID: [id number] Author: Hermes Roca MD Service: Hospital Medicine Author Type: Physician Type: HANDP Filed: 05/30/2021 1:03 AM Note Text: DEPARTMENT OF HOSPITAL MEDICINE HISTORY AND PHYSICAL EXAM SERVICE DATE: 05/29/2021 SERVICE TIME: 11:18 PM Primary Care Physician: Mateus Burris MD NIGHT AND WEEKEND COVERAGE: Please page [phone] until 7:30am this morning. After 7:30am please check the treatment team banner and page the appropriate service. 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 Normal [facility] Magnesium SerPl-mCncon 05-30 Magnesium [Mass/Vol] 2.5 mg/dL High 1.7-2.3 [facility] Comment on above: Order Comment: Speci men Type: BLOOD SPECIMEN Performed By: #### 1 9123-9, 2777-1 ####[facility]ORATORYCLIA [id number] [place] [address] [place] NURSING PROGon 05-30-2021 NURSING PROG HNO ID: [id number] Author: Precious Cervantes RN Service: ? Author Type: Registered Nurse Type: Nursing Progress Note Filed: 05/30/2021 11:26 AM Note Text: Nursing Progress Note Patient Name: Andrew Sifuenets Patient Location: [facility]-0217/[id number] Daily Note: 0700- Report received from vegetable loader RN, patient resting in bed at this time, call light within reach, bed low and locked. Asked the patient to state his name because vegetable loader RN was unable to complete his admission [...] note was completed by: Precious Cervantes [facility] NURSING PROG HNO ID: [id number] Author: Lyubov Day RN Service: ? Author Type: Registered Nurse Type: Nursing Progress Note Filed: 05/30/2021 1:27 AM Note Text: Nursing Progress Note Patient Name: Andrew Sifuentes Patient [facility]17/[id number] 0100: Patient is unresponsive to questions. Patient [...] note was completed by: Lyubov Day [facility] Phosphate SerPl-mCncon 05-30 Phosphate [Mass/Vol] 3.5 mg/dL Normal 2.7-4.8 [facility] Comment on above: Order Comment: Speci men Type: BLOOD SPECIMEN Performed By: #### 1 9123-9, 2777-1 ####[facility]ORATORYCLIA [id number] [place] [address] [place] Sepsis Lactateon 05-30-2021 Sepsis Lactate 1.5 mmol/L Normal 0.5-2.0 [facility] Comment on above: Performed By: #### S LACT ####[facility] [address] [place] [phone] Syphilis Ttl w/Reflxon 05-30 Syphilis Interp Cannot exclude recen t Treponemal infection if specimen collected within 7 to 10 days after appearance of suspect lesions or 2 to 3 weeks after an exposure. Clinical correlation is required. Normal [facility] Comment on above: Performed By: #### S YPHTX, B1WB ####[facility] [address] [place], [place] [phone] Syphilis Screen Rslt Non-Reactive Normal Non Reactive [facility] Comment on above: Performed By: #### S YPHTX, B1WB ####[facility] [address] [place], [place] [phone] THERAPY NTon 05-30-2021 THERAPY NT HNO ID: [id number] Author: RADHA Andres/Felecia Service: Occupational Therapy Author Type: Occupational Therapist Type: Therapy (PT/OT/Speech/Resp) Filed: 05/30/2021 10:29 AM Note Text: OCCUPATIONAL THERAPY MISSED VISIT SERVICE DATE: 05/30/2021 SERVICE TIME: 1017 to 1019 ROOM: [place] [address] Attempted Evaluation. Patient not seen due to Not following commands. Per nursing patient was seen by neuro and they are talking about having him transferred to [facility] secondary to shunt concerns. Will re attempt in the event patient continues to be admitted at [place] and is able to participate. SIGNATURE: RADHA Andres/Felecia PATIENT NAME: Andrew Sifuentes DATE: May 30, 2021 TIME: 10:21 AM Normal [facility] THERAPY NT HNO ID: [id number] Author: Bette Velasquez, PT Service: Physical Therapy Author Type: Physical Therapist Type: Therapy (PT/OT/Speech/Resp) Filed: 05/30/2021 8:42 AM Note Text: PHYSICAL THERAPY MISSED VISIT SERVICE DATE: 05/30/2021 SERVICE TIME: 0840 to 0840 ROOM: [place] [address] Attempted Evaluation. Patient not seen due to (pt difficult to awake per RN, very lethargic). Will re-attempt when schedule permits. SIGNATURE: Bette Velasquez, PT PATIENT NAME: Andrew Sifuentes DATE: May 30, 2021 TIME: 8:41 AM Normal [facility] Toxicology Screen,Uron 05-30 Amphetamines, Urine Negative Normal Negative [facility] Comment on above: Result Comment: Cuto ff threshold at 1000 ng/mL. Performed By: #### C AD #### [facility] [address] [place] [id number] [place] [phone] Barbiturates, Urine Negative Normal Negative [facility] Comment on above: Result Comment: Cuto ff threshold at 200 ng/mL. Performed By: #### C AD #### [facility] [address] [place] [phone] [place] [phone] Benzodiazepines, Ur Negative Normal Negative [facility] Comment on above: Result Comment: Cuto ff threshold at 200 ng/mL. Performed By: #### C AD #### [facility] [address] [place] [phone] [facility] [address] [place] [phone] Cannabinoids, Urine Negative Normal Negative [facility] Comment on above: Result Comment: Cuto ff threshold at 50 ng/mL. Performed By: #### C AD #### [facility] [address] [place] [phone] [facility] [address] [place] [address] Cocaine, Urine Negative Normal Negative [facility] Comment on above: Result Comment: Cuto ff threshold at 300 ng/mL. Performed By: #### C AD #### [facility] [address] [place] [address] [facility] [address] [place] [address] Opiates, Urine Negative Normal Negative [facility] Comment on above: Result Comment: Cuto ff threshold at 300 ng/mL. Performed By: #### C AD #### [facility] [address] [place] [address] [place] [address] Oxycodone, Urine Negative Normal Negative [facility] Comment on above: Result Comment: Cuto [...] on the same specimen through Client Services ([phone]) if contacted within 48 hours of initial testing. [1]Substance Abuse and Mental Health Services Administration (2012). Clinical Drug Testing in Primary Care Technical Assistance Publication Series 32. Department of Health and Human Services, [place], p.10. Performed By: #### C AD #### [facility] [address] [place] [address] [facility] [address] [place] [address] Phencyclidine, Urine Negative Normal Negative [facility] Comment on above: Result Comment: Cuto ff threshold at 25 ng/mL. Performed By: #### C AD #### [facility] [address] [place] [address] [facility] [facility] [address] [place], [place] [address] Troponin Ton 05-30-2021 Troponin T <0.010 Normal 0.000-0.029 [facility] Comment on above: Performed By: #### T NT ####[facility] [address] [place] [phone] Urinalysison 05-30-2021 Bilirubin, Urine Negative Normal Negative [facility] Comment on above: Performed By: #### C AD #### [facility] [address] [place] [phone] [facility] [address] [place] [address] Clarity (U) Slightly Cloudy Critically abnormal Clear [facility] Comment on above: Performed By: #### C AD #### [facility] [address] [phone] [facility] [address] [address] Color (U) Yellow Normal Yellow [facility] Comment on above: Performed By: #### C AD #### [facility] [address] [phone] [facility] [address] [address] Glucose Ql (U) Negative Normal Negative [facility] Comment on above: Performed By: #### C AD #### [facility] [address] [phone] [facility] [address] [place], [place] [address] Hemoglobin/Blood,Ur Negative Normal Negative [facility] Comment on above: Performed By: #### C AD #### [facility] [address] [phone] [facility] [address] [address] Ketones Ql (U) Negative Normal Negative [facility] Comment on above: Performed By: #### C AD #### [facility] [address] [phone] [facility] [address] [place], [place] [address] Leukest Negative Normal Negative [facility] Comment on above: Performed By: #### C AD #### [facility] [address] [place] [address] [facility] [address] [place], [place] [address] Nitrite Ql (U) Negative Normal Negative [facility] Comment on above: Performed By: #### C AD #### [facility] [address] [place] [address] [facility] [address] [place] [address] pH (U) 8.5 [pH] High 5.0-8.0 [facility] Comment on above: Performed By: #### C AD #### [facility] [address] [place] [address] [facility] [address] [place] [address] Protein, Urine Negative Normal Negative [facility] Comment on above: Performed By: #### C AD #### [facility] [address] [place] [address] [facility] [address] [place], [place] [address] Specific [place], Ur 1.015 Normal 1.005-1.030 [facility] Comment on above: Performed By: #### C AD #### [facility] [place] [address] [facility] [address] [place], [place] [address] Urobilinogen Qn (U) 0.2 {Marianne'U}/dL Normal 0.2-1.0 [facility] Comment on above: Performed By: #### C AD #### [facility] [address] [place] [address] [facility] [address] [place], [place] [address] Vitamin B1, Whole Blon 05-30 Vitamin B1 (TDP), WB 207.1 nmol/L Normal 84.0-213.0 [facility] Comment on above: Result Comment: This assay measures the concentration of thiamine diphosphate (TDP), the primary active form of vitamin B1. Approximately 90 percent of vitamin B1 present in whole blood is TDP. Thiamine and thiamine monophosphate, which comprise the remaining 10 percent, are not measured. This test was developed and its performance characteristics determined by [facility]'s Isrrael Perez [facility] [place] ([facility]). It has not been cleared or approved by the FDA. [facility] is regulated under CLIA as qualified to perform high complexity testing. This test is used for clinical purposes. It should not be regarded as investigational or for research. Performed By: #### S YPHTX, B1WB ####[facility] [place], [place] [phone] Vitamin B12on 05-30-2021 Cobalamin (Vitamin B12) [Mass/Vol] 494 pg/mL Normal 232-1245 [facility] Comment on above: Performed By: #### C AD #### [facility] [address] [place] [address] [facility] [address] [place], [place] [address] ALLIED HEALTHon 05-29-2021 ALLIED HEALTH HNO ID: [id number] Author: RT Kitty(Lisa) Service: Radiology Author Type: [...] Kitty(R) May 29, 2021 8:51 PM Normal [facility] ALLIED HEALTH HNO ID: [id number] Author: Markie Fish Service: ? Author Type: Production Artist Type: Allied Health Filed: 05/29/2021 8:39 PM [...] Markie Fish May 29, 2021 8:38 PM [facility] CBC and Differentialon 05-29 Abs Baso 0.05 k/uL Normal <0.11 [facility] Comment on above: Performed By: #### C MP, MG1, CBCDIF ####[facility] [address] [place] [address] Abs [place] 0.72 k/uL Normal <0.87 [facility] Comment on above: Performed By: #### C MP, MG1, CBCDIF ####[facility] [address] [place] [address] Abs Neut 7.86 k/uL High 1.45-7.50 [facility] Comment on above: Performed By: #### C MP, MG1, CBCDIF ####[facility] [address] [place] [address] Absolute nRBC <0.01 Normal <0.01 [facility] Comment on above: Performed By: #### C MP, MG1, CBCDIF ####[facility] [address] [place] [address] Basophils/100 WBC (Bld) 0.5 % Normal [facility] Comment on above: Performed By: #### C MP, MG1, CBCDIF ####[facility] [address] [place], [place] [address] DTYPE Auto Diff Normal [facility] Comment on above: Performed By: #### C MP, MG1, CBCDIF ####[facility] Acfvxctoql6752 [address] Eosinophils (Bld) [#/Vol] 0.10 10*3/uL Normal <0.46 [facility] Comment on above: Performed By: #### C MP MG1, CBCDIF ####[facility] [address] [place], [place] [phone] Eosinophils/100 WBC (Bld) 0.9 % Normal [facility] Comment on above: Performed By: #### C MP MG1, CBCDIF ####[facility] [address] [place] [address] Erythrocyte distribution width (RBC) [Ratio] 15.5 % High 11.5-15.0 [facility] Comment on above: Performed By: #### C MARÍA ELENA MG1, CBCDIF ####[facility] [address] [place] [address] Hematocrit (Bld) [Volume fraction] 41.6 % Normal 39.0-51.0 [facility] Comment on above: Performed By: #### C MP, MG1, CBCDIF ####[facility] [address] [place], [place] [phone] Hemoglobin (Bld) [Mass/Vol] 12.7 g/dL Low 13.0-17.0 [facility] Comment on above: Performed By: #### C MP, MG1, CBCDIF ####[facility] [address] [place], [place] [phone] Lymphocytes (Bld) [#/Vol] 2.04 10*3/uL Normal 1.00-4.00 [facility] Comment on above: Performed By: #### C MP, MG1, CBCDIF ####[facility] [address] [place], [place] [phone] Lymphocytes/100 WBC (Bld) 18.9 % Normal [facility] Comment on above: Performed By: #### C MP, MG1, CBCDIF ####[facility] [address] [place] [address] MCH 27.3 pG Normal 26.0-34.0 [facility] Comment on above: Performed By: #### C MARÍA ELENA MG1, CBCDIF ####[facility] [address] [place] [address] MCHC (RBC) [Mass/Vol] 30.5 g/dL Normal 30.5-36.0 [facility] Comment on above: Performed By: #### C MP MG1, CBCDIF ####[facility] [address] [place] [address] MCV (RBC) [Entitic vol] 89.5 fL Normal 80.0-100.0 [facility] Comment on above: Performed By: #### C MARÍA ELENA MG1, CBCDIF ####[place] [address] Monocytes/100 WBC (Bld) 6.7 % Normal [facility] Comment on above: Performed By: #### C MP MG1, CBCDIF ####[facility] [address] [place] [address] Neutrophils/100 WBC (Bld) 73.0 % Normal [facility] Comment on above: Performed By: #### C MARÍA ELENA MG1, CBCDIF ####[place] [address] NRBCs 0.0 /100 WBC Normal 0 [facility] Comment on above: Performed By: #### C MARÍA ELENA MG1, CBCDIF ####[facility] [address] [place] [address] Platelet mean volume (Bld) [Entitic vol] 10.1 fL Normal 9.0-12.7 [facility] Comment on above: Performed By: #### C MP MG1, CBCDIF ####[facility] [address] [place], [place] [address] Platelets (Bld) [#/Vol] 291 10*3/uL Normal 150-400 [facility] Comment on above: Performed By: #### C MP, MG1, CBCDIF ####[facility] [address] [place] [address] RBC (Bld) [#/Vol] 4.65 10*6/uL Normal 4.20-6.00 [facility] Comment on above: Performed By: #### C MP, MG1, CBCDIF ####[facility] Woif[address]urxvz9654 [phone] WBC (Bld) [#/Vol] 10.77 10*3/uL Normal 3.70-11.00 [facility] Comment on above: Performed By: #### C MP, MG1, CBCDIF ####[facility] Yfuazdwzey7861 [phone] CT BRAIN WO IVCONon 05-29-19 CT BRAIN WO IVCON * * *Final Report* * * DATE OF EXAM: May 29 2021 8:42PM [facility] [place]IN [place] IVCON / PROCEDURE REASON: Head trauma, headache * * * * Physician Interpretation * * * * EXAMINATION: CT CERVICAL SPINE WO IVCON, CT BRAIN WO IVCON CLINICAL HISTORY: C-spine trauma, NEXUS/CCR positive (accession [id number]), Head trauma, headache (accession [id number]) TECHNIQUE: Serial axial unenhanced images were obtained from the vertex to the foramen magnum. Spiral, high resolution axial unenhanced images were obtained from the skull base to the cervicothoracic junction with sagittal and coronal planar reconstructions. Dose-Length Product (DLP): 2132 mGy*cm. CT Dose Reduction Employed: Automated exposure control (AEC) COMPARISON: 08/13/[address] RESULT: BRAIN: Post-operative change: Right parietal approach HAND ENDBAND CUTTER shunt is intact. The intracranial fragments of [...] vertebrae with counting from the craniocervical junction. Security Program Manager: [employer] Transcribe Date/Time: May 29 2021 8:59P Dictated by : CARLOS YOUNGER MD This examination was interpreted and the report reviewed and electronically signed by: CARLOS YOUNGER MD on May 29 2021 9:14PM EST [id number] [facility] CT CERVICAL SPINE WO IVCONon 05-29-2021 CT CERVICAL SPINE WO IVCON * * *Final Report* * * DATE OF EXAM: May 29 2021 8:42PM [facility] [place] CERVICAL SPINE WO IVCON / PROCEDURE REASON: C-spine trauma, NEXUS/CCR positive * * * * Physician Interpretation * * * * EXAMINATION: CT CERVICAL SPINE WO IVCON, CT BRAIN WO IVCON CLINICAL HISTORY: C-spine trauma, NEXUS/CCR positive (accession [id number]), Head trauma, headache (accession [id number]) TECHNIQUE: Serial axial unenhanced images were obtained from the vertex to the foramen magnum. Spiral, high resolution axial unenhanced images were obtained from the skull base to the cervicothoracic junction with sagittal and coronal planar reconstructions. Dose-Length Product (DLP): 2132 mGy*cm. CT Dose Reduction Employed: Automated exposure control (AEC) COMPARISON: 08/13/[address] RESULT: BRAIN: Post-operative change: Right parietal approach HAND ENDBAND CUTTER shunt is intact. The intracranial fragments of [...] vertebrae with counting from the craniocervical junction. Security Program Manager: [facility] Transcribe Date/Time: May 29 2021 8:59P Dictated by : CARLOS YOUNGER MD This examination was interpreted and the report reviewed and electronically signed by: CARLOS YOUNGER MD on May 29 2021 9:14PM EST [id number] Normal [facility] Cepheid Bill only (EXCFR)on 05-29-2021 Cepheid Bill only (EXCFR) Billed for services performed Normal [facility] Comment on above: Performed By: #### C AD #### [facility] [address] [place] [address] [facility] [address], [place] [address] Comp Metabolic Panelon 05-29 Albumin [Mass/Vol] 4.1 g/dL Normal 3.9-4.9 [facility] Comment on above: Performed By: #### C MP ####[facility] [address] [place] [phone] ALP [Catalytic activity/Vol] 86 U/L Normal 38-113 [facility] Comment on above: Performed By: #### C MP ####[facility] [address] [place], [place] [address] ALT [Catalytic activity/Vol] 15 U/L Normal 10-54 [facility] Comment on above: Performed By: #### C MP ####[facility] [address] [place] [address] Anion gap [Moles/Vol] 9 mmol/L Normal 9-18 [facility] Comment on above: Performed By: #### C MP ####[facility] [address] [place] [address] AST [Catalytic activity/Vol] 22 U/L Normal 14-40 [facility] Comment on above: Performed By: #### C MP ####[facility] [address] [place] [address] Bilirubin [Mass/Vol] 0.2 mg/dL Normal 0.2-1.3 [facility] Comment on above: Performed By: #### C MP ####[facility] [address] [place] [address] Calcium [Mass/Vol] 9.1 mg/dL Normal 8.5-10.2 [facility] Comment on above: Performed By: #### C MP ####[facility] [address] [place] [address] Chloride [Moles/Vol] 103 mmol/L Normal 97-105 [facility] Comment on above: Performed By: #### C MP ####[facility] [address] [place] [address] CO2 [Moles/Vol] 29 mmol/L Normal 22-30 [facility] Comment on above: Performed By: #### C MP ####[facility] [address] [place] [address] Creatinine [Mass/Vol] 0.89 mg/dL Normal 0.73-1.22 [facility] Comment on above: Performed By: #### C MP ####[facility] [address] [place] [address] eGFR- Amer. >60 Normal [facility] Comment on above: Performed By: #### C MP ####[facility] [address] [place] [address] eGFR-All Other Races >60 Normal [facility] [...] at [email or web address]. Performed By: #### C MP ####[facility] Svuzhfeine7198 [phone] Glucose [Mass/Vol] 120 mg/dL High 74-99 [facility] Comment on above: Result Comment: The [...] 2016.39(Suppl 1). Performed By: #### C MP ####[facility] [address] [place] [phone] Potassium [Moles/Vol] 4.2 mmol/L Normal 3.7-5.1 [facility] Comment on above: Performed By: #### C MP ####[facility] [address] [place] [phone] Protein [Mass/Vol] 7.1 g/dL Normal 6.3-8.0 [facility] Comment on above: Performed By: #### C MP ####[facility] [address] [place] [address] Sodium [Moles/Vol] 141 mmol/L Normal 136-144 [facility] Comment on above: Performed By: #### C MP ####[facility] [address] [place] [address] Urea nitrogen [Mass/Vol] 11 mg/dL Normal 9-24 [facility] Comment on above: Performed By: #### C MP ####[facility] [address] [place] [address] Albumin [Mass/Vol] 4.1 g/dL Normal 3.9-4.9 [facility] Comment on above: Performed By: #### C MP, MG1, CBCDIF ####[facility] [address] [place] [address] ALP [Catalytic activity/Vol] 86 U/L Normal 38-113 [facility] Comment on above: Performed By: #### C MP, MG1, CBCDIF ####[facility] [address] [place] [address] ALT Unable to assay due to interference from hemolysis. Suggest reorder as clinically indicated. Normal 10-54 [facility] Comment on above: Result Comment: Call ed to ED Álvaro at 2128 on 05.29.21 by Sabino Performed By: #### C MP, MG1, CBCDIF ####[facility] [address] [place] [address] Anion gap [Moles/Vol] 12 mmol/L Normal 9-18 [facility] Comment on above: Performed By: #### C MP, MG1, CBCDIF ####[facility] [address] [place] [address] AST Unable to assay due to interference from hemolysis. Suggest reorder as clinically indicated. Normal 14-40 [facility] Comment on above: Result Comment: Call ed to ED Álvaro at 2128 on 05.29.21 by Sabino Performed By: #### C MP, MG1, CBCDIF ####[facility] [address] [place] [address] Bilirubin [Mass/Vol] 0.2 mg/dL Normal 0.2-1.3 [facility] Comment on above: Performed By: #### C MP, MG1, CBCDIF ####[facility] [address]ft[address] [place] [address] Calcium [Mass/Vol] 9.0 mg/dL Normal 8.5-10.2 [facility] Comment on above: Performed By: #### C MP, MG1, CBCDIF ####[facility] [address] [place] [address] Chloride [Moles/Vol] 102 mmol/L Normal 97-105 [facility] Comment on above: Performed By: #### C MP, MG1, CBCDIF ####[facility] [address] [place] [address] CO2 [Moles/Vol] 27 mmol/L Normal 22-30 [facility] Comment on above: Performed By: #### C MP, MG1, CBCDIF ####[facility] [address] [place] [address] Creatinine [Mass/Vol] 0.75 mg/dL Normal 0.73-1.22 [facility] Comment on above: Performed By: #### C MP, MG1, CBCDIF ####[facility] [address] [place] [address] eGFR- Amer. >60 Normal [facility] Comment on above: Performed By: #### C MP, MG1, CBCDIF ####[facility] [address] [place] [address] eGFR-All Other Races >60 Normal [facility] [...] Performed By: #### C MP, MG1, CBCDIF ####[facility] [address] [place] [address] Glucose [Mass/Vol] 112 mg/dL High 74-99 [facility] Comment on above: Result Comment: The [...] Performed By: #### C MP, MG1, CBCDIF ####[facility] [address] [place] [address] Potassium Unable to assay due to interference from hemolysis. Suggest reorder as clinically indicated. Normal 3.7-5.1 [facility] Comment on above: Result Comment: Call ed to LISA Rea at 2129 on 05.29.21 by Sabino Performed By: #### C MP, MG1, CBCDIF ####[facility] Jerefdjkds1040 [address]5[address] Protein [Mass/Vol] 7.3 g/dL Normal 6.3-8.0 [facility] Comment on above: Performed By: #### C MP, MG1, CBCDIF ####[facility] Nxfqovsnjs5550 [address]5[address] Sodium [Moles/Vol] 141 mmol/L Normal 136-144 [facility] Comment on above: Performed By: #### C MP, MG1, CBCDIF ####[facility] [address] [place] [address] Urea nitrogen [Mass/Vol] 11 mg/dL Normal 9-24 [facility] Comment on above: Performed By: #### C MP, MG1, CBCDIF ####[facility] [address] [place] [phone] ED PROV NOTEon 05-29-2021 ED PROV NOTE HNO ID: [id number] Author: Shanell Slaughter MD Service: ? Author [...] No radiographic evidence of acute cardiopulmonary disease. Security Program Manager: OG Transcribe Date/Time: May 29 2021 [...] vertebrae with counting from the craniocervical junction. Security Program Manager: OG Transcribe Date/Time: May 29 2021 [...] vertebrae with counting from the craniocervical junction. Security Program Manager: PSCShilpa Transcribe Date/Time: May 29 (more content not included)... 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 Provider Location: [facility] Patient Location: Outpatient Hospital Physical Exam Vital [...] Flavio Pandya, DO Flavio Pandya, 05/29/211909 Normal [facility] EXCOVD, Flu A/B, RSV (On int erfaces 1102,1120)on 05-29-2021 Influenza A PCR Negative [facility] Comment on above: Performed By: #### C AD #### [facility] [address] [place] [address] [place] [phone] Influenza B PCR Negative [facility] Comment on above: Performed By: #### C AD #### [facility] [address] [place] [address] [place] [address] RSV PCR Negative Normal [facility] Comment on above: Result Comment: This test has been authorized by FDA under an Emergency Use Authorization (EUA). Performed By: #### C AD #### [facility] [place] [address] [address] SARS-CoV-2 (COVID-19) RNA MEGAN+probe Ql (Unsp spec) UPPER RESPIRATORY TRACT SWAB Normal [facility] Comment on above: Performed By: #### C AD #### [facility] [place] [address] [place] [phone] SARS-CoV-2 (COVID-19) RNA MEGAN+probe Ql (Unsp spec) Negative for COVID19 (SARS CoV2) by RT-PCR or equivalent method. Normal Negative for COVID19 (SARS CoV2) by RT-PCR or equivalent method. [facility] Comment on above: Result Comment: This test has been authorized by FDA under an Emergency Use Authorization (EUA). Performed By: #### C AD #### [facility] [place] [address] [address] Magnesiumon 05-29-2021 Magnesium [Mass/Vol] 2.2 mg/dL Normal 1.7-2.3 [facility] Comment on above: Performed By: #### C MP, MG1, CBCDIF ####[facility] Anchmwstps5756 [address]5[address] NT Pro BNPon 05-29-2021 PRO B Natr Peptide 303 pg/mL High <125 [facility] Comment on above: Performed By: #### N TBNP ####[facility] [address] [place] [address] Troponin Ton 05-29-2021 Troponin T <0.010 Normal 0.000-0.029 [facility] Comment on above: Performed By: #### T NT ####[facility] [address] [place] [address] Troponin T Unable to assay due to interference from hemolysis. Suggest reorder as clinically indicated. Normal 0.000-0.029 [facility] Comment on above: Result Comment: Call ed to LISA Rea at 2129 on 05.29.21 by Sabino Performed By: #### T NT ####[facility] [address] [place] [address] XR CHEST 1V FRONTAL PORTon 0 05-29-2021 [...] No radiographic evidence of acute cardiopulmonary disease. Security Program Manager: PSCB Transcribe Date/Time: May 29 2021 8:53P Dictated by : ROLY BANGURA MD This examination was interpreted and the report reviewed and electronically signed by: ROLY BANGURA MD on May 29 2021 8:54PM EST [id number] Normal [facility] PANELon 2020 Albumin [Mass/Vol] 3.9 g/dL Normal 3.4 - 5.0 [facility] Comment on above: Order Comment: PATIE NT FASTING Performed By: #### C MP #### [facility] [address] [place] [address] ALP [Catalytic activity/Vol] 71 U/L Normal 33 - 136 [facility] Comment on above: Order Comment: PATIE NT FASTING Performed By: #### C MP #### [facility] [address] [place] [address] ALT [Catalytic activity/Vol] 19 U/L Normal 10 - 52 [facility] Comment on above: Order Comment: PATIE NT FASTING Result Comment: Nasima ents treated with Sulfasalazine may generate falsely decreased results for ALT. Performed By: #### C MP #### [facility] [address] [place] [address] Anion gap [Moles/Vol] 13 mmol/L Normal 10 - 20 [facility] Comment on above: Order Comment: PATIE NT FASTING Performed By: #### C MP #### [facility] [address] [place] [address] AST [Catalytic activity/Vol] 20 U/L Normal 9 - 39 [facility] Comment on above: Order Comment: PATIE NT FASTING Performed By: #### C MP #### [facility] [address] [place] [address] Bilirubin [Mass/Vol] 0.6 mg/dL Normal 0.0 - 1.2 [facility] Comment on above: Order Comment: PATIE NT FASTING Performed By: #### C MP #### [facility] [address] [place] [address] Calcium [Mass/Vol] 9.0 mg/dL Normal 8.6 - 10.6 [facility] Comment on above: Order Comment: PATIE NT FASTING Performed By: #### C MP #### [facility] [address] [place] [address] Chloride [Moles/Vol] 103 mmol/L Normal 98 - 107 [facility] Comment on above: Order Comment: PATIE NT FASTING Performed By: #### C MP #### [facility] [address] [place] [address] Creatinine [Mass/Vol] 0.94 mg/dL Normal 0.50 - 1.30 [facility] Comment on above: Order Comment: PATIE NT FASTING Performed By: #### C MP #### [facility] [address] [place] [address] GFR- AM. >60 Normal >60 [facility] Comment on above: Order Comment: PATIE NT FASTING Result Comment: CALC ULATIONS OF ESTIMATED GFR ARE PERFORMED USING THE MDRD STUDY EQUATION FOR THE IDMS-TRACEABLE CREATININE METHODS. CLIN CHEM 2007;53:766-72 Performed By: #### C MP #### [facility] [address] [place] [address] GFR-NON AM. >60 Normal >60 [facility] Comment on above: Order Comment: PATIE NT FASTING Performed By: #### C MP #### [facility] [address] [place] [address] Glucose [Mass/Vol] 85 mg/dL Normal 74 - 99 [facility] Comment on above: Order Comment: PATIE NT FASTING Performed By: #### C MP #### [facility] [address] [place] [address] HCO3 (Bld) [Moles/Vol] 30 mmol/L Normal 21 - 32 [facility] Comment on above: Order Comment: PATIE NT FASTING Performed By: #### C MP #### [facility] [address] [place] [address] Potassium [Moles/Vol] 4.1 mmol/L Normal 3.5 - 5.3 [facility] Comment on above: Order Comment: PATIE NT FASTING Performed By: #### C MP #### [facility] [address] [place] [address] Protein [Mass/Vol] 6.6 g/dL Normal 6.4 - 8.2 [facility] Comment on above: Order Comment: PATIE NT FASTING Performed By: #### C MP #### [facility] [address] [place] [address] Sodium [Moles/Vol] 142 mmol/L Normal 136 - 145 [facility] Comment on above: Order Comment: PATIE NT FASTING Performed By: #### C MP #### [facility] [address] [place] [address] Urea nitrogen [Mass/Vol] 14 mg/dL Normal 6 - 23 [facility] Comment on above: Order Comment: PATIE NT FASTING Performed By: #### C MP #### [facility] [address] [place] [address] LIPID PANEL (CORONARY RISK 2 )on 09-03-2020 Cholesterol [Mass/Vol] 210 mg/dL High 0 - 199 [facility] Comment on above: Order Comment: [...] Performed By: #### L IPID #### [facility] [address] [place] [address] Cholesterol in HDL [Mass/Vol] 50.1 mg/dL Normal [facility] Comment on above: Order Comment: PATIE NT FASTING Result Comment: . AGE VERY LOW LOW NORMAL HIGH 0-19 Y < 35 < 40 40-45 ---- 20-24 Y ---- < 40 >45 ---- >24 Y ---- < 40 40-60 >60 . Performed By: #### L IPID #### [facility] [address] [place] [address] Cholesterol in LDL [Mass/Vol] 130 mg/dL High 0 - 99 [facility] Comment on above: Order Comment: PATIE NT FASTING Result Comment: . NEAR BORD AGE DESIRABLE OPTIMAL HIGH HIGH VERY HIGH 0-19 Y 0 - 109 --- 110-129 >/= 130 ---- 20-24 Y 0 - 119 --- 120-159 >/= 160 ---- >24 Y 0 - 99 100-129 130-159 160-189 >/=190 . Performed By: #### L IPID #### [facility] [address] [place] [address] Cholesterol in VLDL [Mass/Vol] 30 mg/dL Normal 0 - 40 [facility] Comment on above: Order Comment: PATIE NT FASTING Performed By: #### L IPID #### [facility] [address] [place] [address] Cholesterol.total/Chol esterol in HDL [Mass ratio] 4.2 {ratio} Normal [facility] Comment on above: Order Comment: PATIE NT FASTING Result Comment: REF VALUES DESIRABLE < 3.4 HIGH RISK > 5.0 Performed By: #### L IPID #### [facility] [address] [place] [address] Triglyceride [Mass/Vol] 152 mg/dL High 0 - 149 [facility] Comment on above: Order Comment: [...] dosing. Performed By: #### L IPID #### [facility] [address] [place] [address] PROSTATE SPEC.AG,SCREENon PROSTATE SPEC.AG,SCREEN 0.37 ng/mL Normal 0.00 - 4.00 [facility] Comment on above: Order Comment: PATIE NT FASTING Result Comment: The FDA requires that the method used for PSA assay be reported to the physician. Values obtained with different assay methods must not be used interchangeably. This test was performed at [facility] using the Siemens psicofxp PSA method, which is a sandwich immunoassay using chemiluminescence for quantitation. The assay is approved for measurement of prostate-specific antigen (PSA) in serum and may be used in conjunction with a digital rectal examination in men 50 years and older as an aid in detection of prostate cancer. 2-Hiitg-yfutuxkxv inhibitors (e.g. Proscar, Finasteride, Avodart, Dutasteride and Elizabeth) for the treatment of BPH have been shown to lower PSA levels by an average of 50% after 6 months of treatment. Performed By: #### P SASC #### [facility] [address] [place] [address] TSH WITH REFLEX TO FREE T4 I F ABNORMALon 09-03-2020 TSH Qn 0.97 m[IU]/L Normal 0.44 - 3.98 [facility] Comment on above: Order Comment: PATIE NT FASTING Result Comment: TSH testing is performed using different testing methodology at [facility] than at other legacy [facility]. Direct result comparisons should only be made within the same method. Performed By: #### T HYDS #### [facility] [address] [place] [address] CBC AND DIFFERENTIALon 09-02 % AUTOMATED IMMATURE GRAN 0.3 % Normal 0.0 - 0.9 [facility] Comment on above: Order Comment: PATIE NT FASTING Result Comment: [place] Granulocyte Count (IG) includes promyelocytes, myelocytes and metamyelocytes but does not include bands. Percent differential counts (%) should be interpreted in the context of the absolute cell counts (cells/L). Performed By: #### C BCDF #### [place] [address] [place] [address] Basophils (Bld) [#/Vol] 0.07 10*3/uL Normal 0.00 - 0.10 [facility] Comment on above: Order Comment: PATIE NT FASTING Result Comment: Auto mated WBC differential has been confirmed by manual smear. Performed By: #### C BCDF #### [facility] [address] [place] [address] Basophils/100 WBC (Bld) 0.9 % Normal 0.0 - 2.0 [facility] Comment on above: Order Comment: PATIE NT FASTING Performed By: #### C BCDF #### [facility] [address] [place] [address] Eosinophils (Bld) [#/Vol] 0.21 10*3/uL Normal 0.00 - 0.70 [facility] Comment on above: Order Comment: PATIE NT FASTING Performed By: #### C BCDF #### [facility] [address] [place] [address] Eosinophils/100 WBC (Bld) 2.8 % Normal 0.0 - 6.0 [facility] Comment on above: Order Comment: PATIE NT FASTING Performed By: #### C BCDF #### [facility] [address] [place] [address] Lymphocytes (Bld) [#/Vol] 2.28 10*3/uL Normal 1.20 - 4.80 [facility] Comment on above: Order Comment: PATIE NT FASTING Performed By: #### C BCDF #### [facility] [address] [place] [address] Lymphocytes/100 WBC (Bld) 30.9 % Normal 13.0 - 44.0 [facility] Comment on above: Order Comment: PATIE NT FASTING Performed By: #### C BCDF #### [facility] [address] [place] [address] Monocytes (Bld) [#/Vol] 0.50 10*3/uL Normal 0.10 - 1.00 [facility] Comment on above: Order Comment: PATIE NT FASTING Performed By: #### C BCDF #### [facility] [address] [place] [address] Monocytes/100 WBC (Bld) 6.8 % Normal 2.0 - 10.0 [facility] Comment on above: Order Comment: PATIE NT FASTING Performed By: #### C BCDF #### [facility] [address] [place] [address] Neutrophils (Bld) [#/Vol] 4.29 10*3/uL Normal 1.20 - 7.70 [facility] Comment on above: Order Comment: PATIE NT FASTING Performed By: #### C BCDF #### [facility] [address] [place] [address] Neutrophils/100 WBC (Bld) 58.3 % Normal 40.0 - 80.0 [facility] Comment on above: Order Comment: PATIE NT FASTING Performed By: #### C BCDF #### [facility] [address] [place] [address] Erythrocyte distribution width (RBC) [Ratio] 14.6 % High 11.5 - 14.5 [facility] Comment on above: Order Comment: PATIE NT FASTING Performed By: #### C BCDF #### [facility] [address] [place] [address] Hematocrit (Bld) [Volume fraction] 43.1 % Normal 41.0 - 52.0 [facility] Comment on above: Order Comment: PATIE NT FASTING Performed By: #### C BCDF #### [facility] [address] [place] [address] Hemoglobin (Bld) [Mass/Vol] 13.3 g/dL Low 13.5 - 17.5 [facility] Comment on above: Order Comment: PATIE NT FASTING Performed By: #### C BCDF #### [facility] [address] [place] [address] MCHC (RBC) [Mass/Vol] 30.9 g/dL Low 32.0 - 36.0 [facility] Comment on above: Order Comment: PATIE NT FASTING Performed By: #### C BCDF #### [facility] [address] [place] [address] MCV (RBC) [Entitic vol] 92 fL Normal 80 - 100 [facility] Comment on above: Order Comment: PATIE NT FASTING Performed By: #### C BCDF #### [facility] [address] [place] [address] NUCLEATED RBC 0.0 /100 WBC Normal 0.0-0.0 [facility] Comment on above: Order Comment: PATIE NT FASTING Performed By: #### C BCDF #### [facility] [address] [place] [address] Platelets (Bld) [#/Vol] 267 10*3/uL Normal 150 - 450 [facility] Comment on above: Order Comment: PATIE NT FASTING Performed By: #### C BCDF #### [facility] [address] [place] [address] RBC 4.69 x10E12/L Normal 4.50 - 5.90 [facility] Comment on above: Order Comment: PATIE NT FASTING Performed By: #### C BCDF #### [facility] [address] [place] [address] WBC (Bld) [#/Vol] 7.4 10*3/uL Normal 4.4 - 11.3 [facility] Comment on above: Order Comment: PATIE NT FASTING Performed By: #### C BCDF #### [facility] [address] [place] [address] RED CELL MORPHOLOGYon 2020 CHANELL CELLS Few Normal [facility] Comment on above: Order Comment: PATIE NT FASTING Performed By: #### M ORP2 #### [facility] [address] [place] [address] OVALOCYTES Few Normal [facility] Comment on above: Order Comment: PATIE NT FASTING Performed By: #### M ORP2 #### [facility] [address] [place] [address] POLYCHROMASIA Mild Normal [facility] Comment on above: Order Comment: PATIE NT FASTING Performed By: #### M ORP2 #### [facility] [address] [place] [address] RBC FRAGMENTS Few Normal [facility] Comment on above: Order Comment: PATIE NT FASTING Performed By: #### M ORP2 #### [facility] [address] [place] [address] RBC morphology finding Nom (Bld) See Below Normal [facility] Comment on above: Order Comment: PATIE NT FASTING Performed By: #### M ORP2 #### [facility] [address] [place] [address] No Panel Informationon 01-19 76 1 [facility]-Cardiolo [...] [facility]-[place] [address] [place] Work Phone: [email or web address] ?RetrieveTestByDateTime?P [id number]&Date=1 09-13-2019&Time=15%3a11%3a 03%3a00&TestType=ECG&Site =1&OutputType=PDF&Ext=PDF [facility]iol[facility] [address] [place] Work Phone: Otheron 11-13-2019 [facility] Complete Blood Count + Diffe rentialon [...] 5.90 WBC (Bld) [#/Vol] 0.0 {/100_WBC} 0.0-0.0 [facility] Work Phone: WBC (Bld) [#/Vol] 7.2 {x10E9/L} 4.4 - 11.3 [facility] Work Phone: Complete Blood Count + Differential 0.1 % 0.0 - 0.9 [facility] Work Phone: Comment on above: Immature Granulocyte Count (IG) includes promyelocytes, myelocytes and metamyelocytes but does not include bands. Percent differential counts (%) should be interpreted in the context of the absolute cell counts (cells/L). Lipid Panelon 11-06-2019 Cholesterol [Mass/Vol] 181 mg/dL 0 - 199 [facility] Work Phone: Comment on above: . [...] dosing. Cholesterol in HDL [Mass/Vol] 52.1 mg/dL [facility] Work Phone: Comment on above: . AGE VERY LOW LOW N ORMAL HIGH 0-19 Y < 35 < 40 40-45 ---- 20-24 Y ---- < 40 >45 ---- >24 Y ---- < 40 40-60 >60. Cholesterol in LDL [Mass/Vol] 97 mg/dL 0 - 99 [facility] Work Phone: Comment on above: . NEAR BORD AGE IZABELLA RABLE OPTIMAL HIGH HIGH VERY HIGH 0-19 Y 0 - 109 --- 110-129 >/= 130 ---- 20-24 Y 0 - 119 --- 120-159 >/= 160 ---- >24 Y 0 - 99 100-129 130-159 160-189 >/=190. Cholesterol.total/Chol esterol in HDL [Mass ratio] 3.5 {ratio} [facility] Work Phone: Comment on above: REF VALUESDESIRABLE < 3.4HIGH RISK > 5.0 Triglyceride [Mass/Vol] 158 mg/dL above high threshold 0 - 149 [facility] Work Phone: Comment on above: [...] Lipid Panel 32 mg/dL 0 - 40 [facility] Work Phone: Metabolic Panelon 11-06-2019 ALP [Catalytic activity/Vol] 70 U/L 33 - 136 [facility] Work Phone: Anion gap [Moles/Vol] 13 mmol/L 10 - 20 [facility] Work Phone: Bilirubin [Mass/Vol] 0.6 mg/dL 0.0 - 1.2 [facility] Work Phone: Calcium [Mass/Vol] 9.4 mg/dL 8.6 - 10.6 [facility] Work Phone: Chloride [Moles/Vol] 99 mmol/L 98 - 107 [facility] Work Phone: CO2 [Moles/Vol] 30 mmol/L 21 - 32 [facility] Work Phone: Creatinine [Mass/Vol] 0.87 mg/dL See Below [facility] Work Phone: Comment on above: Reference Range: 0.5 0 - 1.30 Glucose [Mass/Vol] 89 mg/dL 74 - 99 [facility] Work Phone: Potassium [Moles/Vol] 4.3 mmol/L 3.5 - 5.3 [facility] Work Phone: Protein [Mass/Vol] 7.3 g/dL 6.4 - 8.2 [facility] Work Phone: Sodium [Moles/Vol] 138 mmol/L 136 - 145 [facility] Work Phone: Urea nitrogen [Mass/Vol] 14 mg/dL 6 - 23 [facility] Work Phone: Otheron 11-06-2019 Albumin BCP dye [Mass/Vol] 4.4 g/dL 3.4 - 5.0 [facility] Work Phone: ALT With P-5'-P [Catalytic activity/Vol] 11 U/L 10 - 52 [facility] Work Phone: Comment on above: Patients treated wit h Sulfasalazine may generate falsely decreased results for ALT. AST With P-5'-P [Catalytic activity/Vol] 17 U/L 9 - 39 [facility] Work Phone: >60 >60 [facility] Work Phone: Comment on [...] 175.3 cm Rebecca Buck MD Work Phone: [facility] [employer] 09-13-2023 11:48-0400 Body mass index (BMI) [Ratio] 25.84 kg/m2 Rebecca Buck MD Work Phone: [facility] [employer] 09-13-2023 11:48-0400 Body weight 79.38 kg Rebecca Buck MD Work Phone: [facility] [employer] 08-13-2023 09:56-0400 Body height 175.3 cm Rebecca Buck MD Work Phone: [facility] [employer] 08-13-2023 09:56-0400 Body mass index (BMI) [Ratio] 25.84 kg/m2 Rebecca Buck MD Work Phone: [facility] [employer] 08-13-2023 09:56-0400 Body weight 79.38 kg Rebecca Buck MD Work Phone: [facility] [employer] 03-02-2022 18:49-0400 Body temperature 98.01 [degF] Lanette Munguia DO Work Phone: [employer] 03-02-2022 18:49-0400 Diastolic blood pressure 72 mm[Hg] Lanette Munguia DO Work Phone: [employer] 03-02-2022 18:49-0400 Heart rate 94 /min Lanettepriscilla Munguia DO Work Phone: [employer] 03-02-2022 18:49-0400 Respiratory rate 18 /min Lanettepriscilla Munguia DO Work Phone: [employer] 03-02-2022 18:49-0400 SaO2% (BldA) [Mass fraction] 98 % Lanettepriscilla Munguia DO Work Phone: [employer] 03-02-2022 18:49-0400 Systolic blood pressure 104 mm[Hg] Lanette Munguia DO Work Phone: [employer] 03-02-2022 11:55-0400 Body height 175.3 cm Lan[facility]ung[facility]ia DO [facility] 03-02-2022 11:55-0400 Body mass index (BMI) [Ratio] 25.84 kg/m2 Lanette Munguia DO Work Phone: [facility] 03-02-2022 11:55-0400 Body weight 79.38 kg Lanette Munguia DO Work Phone: [facility] 12-22-2021 02:08-0400 Diastolic blood pressure 67 mm[Hg] Sharon Olivia MD Work Phone: [facility] 12-22-2021 02:08-0400 Heart rate 77 /min Sharon Olivia MD Work Phone: [facility] 12-22-2021 02:08-0400 Respiratory rate 16 /min Sharon Olivia MD Work Phone: [facility] 12-22-2021 02:08-0400 SaO2% (BldA) [Mass fraction] 96 % Sharon Olivia MD Work Phone: [facility] 12-22-2021 02:08-0400 Systolic blood pressure 108 mm[Hg] Sharon Olivia MD Work Phone: [facility] 12-21-2021 23:52-0400 Body height 175.3 cm Sharon Olivia MD Work Phone: [facility] 12-21-2021 23:52-0400 Body mass index (BMI) [Ratio] 25.84 kg/m2 Sharon Olivia MD Work Phone: [facility] 12-21-2021 23:52-0400 Body temperature 97.9 [degF] Sharon Olivia MD Work Phone: [facility] 12-21-2021 23:52-0400 Body weight 79.38 kg Sahron Olivia MD Work Phone: [facility] 11-01-2021 08:41-0400 Diastolic blood pressure 77 mm[Hg] Dante Kim MD Work Phone: [facility] 11-01-2021 08:41-0400 Heart rate 75 /min Dante Kim MD Work Phone: [facility] 11-01-2021 08:41-0400 Respiratory rate 16 /min Dante Kim MD Work Phone: [facility] 11-01-2021 08:41-0400 SaO2% (BldA) [Mass fraction] 97 % Dante Kim MD Work Phone: [facility] 11-01-2021 08:41-0400 Systolic blood pressure 112 mm[Hg] Dante Kim MD Work Phone: [facility] 10-31-2021 19:13-0400 Body height 177.8 cm Dante Kim MD Work Phone: [facility] 10-31-2021 19:13-0400 Body mass index (BMI) [Ratio] 27.26 kg/m2 Dante Kim MD Work Phone: [facility] 10-31-2021 19:13-0400 Body temperature 98.49 [degF] Dante Kim MD Work Phone: [facility] 10-31-2021 19:13-0400 Body weight 86.18 kg Dante Kim MD Work Phone: [facility] 10-29-2021 07:38-0400 Body temperature 97.81 [degF] Lisa Michelle DO Work Phone: [facility] 10-29-2021 07:38-0400 Diastolic blood pressure 79 mm[Hg] Lisaitalia Michelle DO Work Phone: [facility] 10-29-2021 07:38-0400 Heart rate 80 /min Lisa Miguel Angel DO Work Phone: [facility] 10-29-2021 07:38-0400 Respiratory rate 18 /min Lisa Michelle DO Work Phone: [facility] 10-29-2021 07:38-0400 SaO2% (BldA) [Mass fraction] 96 % Lisa Michelle DO Work Phone: [facility] 10-29-2021 07:38-0400 Systolic blood pressure 123 mm[Hg] Lisa Michelle DO Work Phone: [facility] 10-25-2021 13:55-0400 Body height 170.2 cm Lisa Michelle DO Work Phone: [facility] 10-21-2021 00:57-0400 Body mass index (BMI) [Ratio] 37.58 kg/m2 Lisa Michelle DO Work Phone: [facility] 10-21-2021 00:57-0400 Body weight 108.86 kg Lisa Michelle DO Work Phone: [facility] 07-13-2020 13:21-0500 BMI (Body Mass Index) 40.47 kg/m2 Shiela Stuart [facility] Work Phone: 07-13-2020 13:21-0500 Body Temperature 98 [degF] Shiela Stuart [facility] Work Phone: 07-13-2020 13:21-0500 Body weight 124.31 kg Shiela Stuart [facility] Work Phone: 07-13-2020 13:21-0500 BP Diastolic 78 mm[Hg] Shiela Luís [facility] Work Phone: 07-13-2020 13:21-0500 BP Systolic 138 mm[Hg] Shiela Stuart [facility] Work Phone: 07-13-2020 13:21-0500 BSA (Body Surface Area) 2.36 m2 Shiela Stuart [facility] Work Phone: 04-13-2020 15:33-0500 BMI (Body Mass Index) 40.32 kg/m2 Wing Ritter [facility] Work Phone: 04-13-2020 15:33-0500 Body weight 123.83 kg Wing [facility] Work Phone: 04-13-2020 15:33-0500 BP [...] 04-13-2020 15:33-0500 Height 175.26 cm Wing [facility] Work Phone: 04-13-2020 15:33-0500 Pulse (Heart Rate) 98 /min Wing Ritter [facility] Work Phone: 04-13-2020 15:33-0500 Pulse Oximetry 98 % Wing [facility] Work Phone: Comment on above: Source: 04-13-2020 15:33-0500 0 1 [facility] Work Phone: Comment on above: Pain Scale 01-20-2020 16:39-0400 Body height 175.26 cm Monika Staley MD [facility] [address] [place] Work Phone: 01-20-2020 16:39-0400 Body mass index (BMI) [Ratio] 39.28 kg/m2 Monika Staley MD FJ-Wjptgjbhlk-Aui [facility] [address] [place] Work Phone: 01-20-2020 16:39-0400 Body surface area Derived from formula 2.33 m2 Monika Staley MD MH-Hhwqedoqga-Vtu [facility] [address] [place] Work Phone: 01-20-2020 16:39-0400 Body weight 120.66 kg Monika Staley MD [facility] [address] [place] Work Phone: 01-20-2020 16:39-0400 Diastolic blood pressure 84 mm[Hg] Monika Staley MD UI-Lbqjxovebr-Tpg [facility] [address] [place] Work Phone: Comment on above: Location: [facility]; Position: Sitting 01-20-2020 16:39-0400 Heart rate 80 /min Monika Staley MD [facility] [address] [place] Work Phone: 01-20-2020 16:39-0400 SaO2% (BldA) [Mass fraction] 100 % Monika Staley MD TT-Cusbcqeexn-Iao [facility] [address] [place] Work Phone: Comment on above: Source: 01-20-2020 16:39-0400 Systolic blood pressure 144 mm[Hg] Monika Staley MD PV-Ozvarlbbqk-Yxb [place] [address] [place] Work Phone: Comment on above: Location: [facility]; Position: Sitting 11-06-2019 15:29-0400 BMI (Body Mass Index) 38.31 kg/m2 Monika Staley [facility] Work Phone: 11-06-2019 15:29-0400 Body Temperature 97.6 [degF] Monika Staley [facility] Work Phone: 11-06-2019 15:29-0400 Body weight 117.66 kg Monika Stlaey [facility] Work Phone: 11-06-2019 15:29-0400 BP Diastolic 62 mm[Hg] Monika Staley [facility] Work Phone: 11-06-2019 15:29-0400 BP Systolic 140 mm[Hg] Monika Staley -[place] Work Phone: 11-06-2019 15:29-0400 BSA (Body Surface Area) 2.31 m2 Monika [facility] Work Phone: 11-06-2019 15:29-0400 Height 175.26 cm Monika [facility] Work Phone: Encounters Encounter Date Encounter Type Care Provider Facility Start: 02-19-2025 ambulatory Mahaveer Mukka flash OLS Facility:[facility] Start: 02-[facility]2025 [facility] Start: 02-[facility]-2025 [facility] Start: 02-09-2025 ambulatory Carlos NOVAK Faci lity:[facility] Start: [facility] Start: 02-05-2025 Registered Referred Karon casillas MD -[facility] Start: 02-02-2025 [facility] Start: 02-02-2025 Registered Referred Karon casillas MD -[facility] Start: 01-29-2025 [facility] Start: 01-29-2025 Registered Referred Karon casillas MD -[facility] Start: 01-26-2025 [facility] Start: 01-26-2025 Registered Referred Karon casillas MD -[facility] Start: 01-22-2025 [facility] Start: 01-22-2025 Registered Referred Karon casillas MD -[facility] Start: 01-19-2025 ambulatory Carlos NOVAK Faci lity:[facility] Start: 01-19-2025 Registered Referred Carlos Cavazos - [facility] [employer] Start: 01-15-2025 [facility] Start: 01-15-2025 Registered Referred Karon casillas MD -[facility] [employer] Start: 01-12-2025 [facility] Facility[facility] Start: 01-12-2025 Registered Referred Karon casillas MD -[facility] [employer] Start: 01-08-2025 ambulatory [facility] Start: 01-08-2025 Registered Referred Karon casillas MD -[facility] Start: 01-06-2025 [facility] Facility:[facility] Start: 01-06-2025 Registered Referred Karon casillas MD -[facility] Start: 01-01-2025 Registered Referred Karon casillas MD -[facility] [employer] Start: 01-01-2025 End: 01-01-2025 [facility] Start: 12-29-2024 ambulatory Carlos Cavazos OLS Faci lity:[facility] Start: 12-29-2024 Registered Referred Carlos Cavazos - [facility] [employer] Start: 12-26-2024 Registered Referred Karon casillas MD -[facility] Start: 12-25-2024 End: 12-26-2024 ambulatory Karon inga OLS Facility:[facility] Start: 12-25-2024 Registered Referred Karon casillas MD -[facility] [employer] Start: 12-24-2024 ambulatory Carlos Cavazos OLS Faci lity:[facility] Start: 12-24-2024 Registered Referred Carlos Cavazos - [facility] Start: 12-22-2024 ambulatory Karon [facility] Facility:[facility] Start: 12-22-2024 Registered Referred [facility] Start: 12-18-2024 [facility] Start: 12-18-2024 Registered Referred Karon casillas MD -[facility] [employer] [employer] Start: 12-15-2024 ambulatory [facility] Start: 12-15-2024 Registered Referred Karon casillas MD -[facility] [employer] Start: 12-11-2024 ambulatory Carlos NOVAK Faci lity:[facility] Start: 12-11-2024 Registered Referred Carlos Cavazos - [facility] Start: 12-08-2024 ambulatory [facility] Facility:[facility] Start: 12-08-2024 Registered Referred Karon casillas MD -[facility] [employer] Start: 12-04-2024 ambulatory [facility] Facility:[facility] Start: 12-04-2024 Registered Referred Karon casillas MD -[facility] [employer] Start: 12-02-2024 ambulatory [facility] Facility:[facility] Start: 12-02-2024 Registered Referred Karon casillas MD -[employer] [employer] Start: 12-01-2024 ambulatory Carlos NOVAK Faci lity:[facility] Start: 12-01-2024 Registered Referred Carlos Cavazos - [facility] [employer] [employer] Start: 11-28-2024 ambulatory Carlos NOVAK Faci lity:[facility] Start: 11-28-2024 Registered Referred Carlos Cavazos - [facility] [employer] Start: 11-27-2024 ambulatory [facility] Facility:[facility] Start: 11-27-2024 Registered Referred Karon casillas MD -[facility] [employer] Start: 11-24-2024 ambulatory [facility] O[facility] Facility:[facility] Start: 11-24-2024 Registered [facility] Start: 11-20-2024 ambulatory [facility] Facility:[facility] Start: 11-20-2024 Registered Referred Mahaveer M ukkamalla MD -[facility] [employer] Start: 11-17-2024 ambulatory Karon muellera OLS Facility:[facility] Start: 11-17-2024 Registered Referred Karon casillas MD -[facility] [employer] [employer] Start: 11-13-2024 ambulatory Karon muellera OLS Facility:[facility] Start: 11-13-2024 Registered Referred Karon casillas MD -[facility] [employer] Start: 11-10-2024 ambulatory Karon muellera OLS Facility:[facility] Start: 11-10-2024 Registered Referred Karon casillas MD -[facility] [employer] Start: 11-06-2024 ambulatory Karon jack muellera OLS Facility:[facility] Start: 11-06-2024 Registered Referred Karon casillas MD -[facility] [employer] [employer] Start: 11-03-2024 End: 11-03-[address] Monika Staley MD Work Phone: -[facility] Start: 11-03-2024 End: 11-03-2024 Departed Referred Carlos Cavazos [facility] [employer] Start: 11-03-2024 Registered Referred Carlos Cavazos - [facility] [employer] [employer] Start: 11-03-2024 End: 11-03-2024 ambulatory Carlos NOVAK Facility:[facility] Start: 10-30-2024 End: 10-30-[address] Monika Staley MD Work Phone: -[facility] Start: 10-30-2024 End: 10-30-2024 Departed Referred Karon Corrales MD -[facility] Start: 10-30-2024 Registered Referred Karon casillas MD -[facility] [employer] Start: 10-30-2024 End: 10-30-2024 ambulatory Monika Staley Facility:[facility] Start: 10-27-2024 [facility] Facility:[facility] Start: 10-27-2024 Registered Referred Karon casillas MD -[facility] Start: 10-23-2024 ambulatory Shiela Luís Facili ty:[facility] Start: 10-23-2024 Registered Referred Karon casillas MD -[facility] Start: 10-20-2024 End: 10-20-[address] Monika Staley MD Work Phone: -[facility] Start: 10-20-2024 End: 10-20-2024 Departed Referred Karon Corrales MD -[facility] [employer] Start: 10-20-2024 Registered Referred Karon casillas MD -[facility] [employer] [employer] Start: 10-20-2024 End: 10-20-2024 ambulatory Karon NOVAK Facility:[facility] Start: 10-16-2024 ambulatory Shiela Luís Facili ty:[facility] Start: 10-16-2024 Registered Referred Karon casillas MD -[facility] [employer] Start: 10-13-2024 ambulatory Shiela Luís Facili ty:[facility] Start: 10-13-2024 Registered Referred Carlos Cavazos - [employer] Start: 10-09-2024 ambulatory Shiela Luís Facili ty:[facility] Start: 10-09-2024 Registered Referred Karon casillas MD -[facility] Start: 10-06-2024 ambulatory Carlos NOVAK Faci lity:[facility] Start: 10-06-2024 Registered Referred Carlos Cavazos - [facility] [employer] Start: 10-02-2024 ambulatory Monika Horner Luís Facili ty:[facility] Start: 10-02-2024 Registered Referred Karon casillas MD -[facility] [employer] Start: 09-30-2024 End: 09-30-[address] Monika Staley MD Work Phone: [facility] Work Phone: Start: 09-30-2024 End: 09-30-2024 Departed Referred Karon Corrales MD -[facility] [employer] [employer] Start: 09-30-2024 Registered Referred Karon casillas MD -[employer] [employer] Start: 09-30-2024 End: 09-30-2024 [facility] Start: 09-25-2024 ambulatory Monika Carlos ty:[facility] Start: 09-25-2024 Registered Referred Karon casillas MD -[facility] [employer] Start: 09-22-2024 End: 09-22-[address] Monika Staley MD Work Phone: [facility] [employer] Start: 09-22-2024 End: 09-22-2024 Departed Referred Karon Corrales MD -[facility] [employer] Start: 09-22-2024 Registered Referred Karon casillas MD -[facility] [employer] Start: 09-22-2024 End: 09-22-2024 ambulatory Karon inga NOVAK Facility:[facility] Start: 09-18-2024 End: 09-18-[address] Monika Staley MD Work Phone: [facility] Start: 09-18-2024 End: 09-18-2024 Departed Referred Karon Corrales MD -[facility] [employer] Start: 09-18-2024 Registered Referred Karon casillas MD -[facility] [employer] Start: 09-18-2024 End: 09-18-2024 [facility] Facility:[facility] Start: 09-15-2024 End: 09-15-[address] Monika Staley MD Work Phone: [facility] Work Phone: Start: 09-15-2024 End: 09-15-2024 Departed Referred Carlos Cavazos [facility] [employer] Start: 09-15-2024 Registered Referred Carlos Cavazos - [facility] [employer] Start: 09-15-2024 End: 09-15-2024 ambulatory Carlos NOVAK Facility:[facility] Start: 09-11-2024 ambulatory Karon NOVAK Facility:[facility] Start: 09-11-2024 Registered Referred Karon casillas MD -[facility] [employer] [facility] Start: 09-08-2024 End: 09-08-[address] Monika Staley MD Work Phone: [facility] Work Phone: Start: 09-08-2024 End: 09-08-2024 Departed Referred Karon Corrales MD -[facility] [employer] Start: 09-08-2024 Registered Referred Karon casillas MD -[facility] [employer] Start: 09-08-2024 End: 09-08-2024 ambulatory Karon NOVAK Facility:[facility] Start: 09-04-2024 End: 09-04-2024 Departed Referred Carlos Cavazos [facility] [employer] Start: 09-04-2024 Registered Referred Carlos Cavazos - [employer] [facility] [employer] Start: 09-04-2024 End: 09-04-2024 ambulatory Carlos NOVAK Facility:[facility] Start: 09-01-2024 End: 09-01-[address] Monika Staley MD Work Phone: [facility] Work Phone: Start: 09-01-2024 End: 09-01-2024 Departed Referred [facility] Start: 09-01-2024 Registered Referred Carlos [facility] Start: 09-01-2024 End: 09-01-2024 ambulatory Carlos NOVAK Facility:[facility] Start: 08-28-2024 End: 08-28-[address] Monika Staley MD Work Phone: [facility] Work Phone: Start: 08-28-2024 End: 08-28-2024 Departed Referred Carlos Cavazos -[facility] [employer] Start: 08-28-2024 Registered Referred Carlos Maribelkameron - [facility] Start: 08-28-2024 End: 08-28-2024 ambulatory Carlos Maribelkameron OLS Facility:[facility] Start: 08-25-2024 End: 08-25-[address] Monika Staley MD Work Phone: [facility] Work Phone: Start: 08-25-2024 End: 08-25-2024 Departed Referred Karon Corrales MD -[facility] [employer] Start: 08-25-2024 Registered Referred Karon casillas MD -[facility] [employer] Start: 08-25-2024 End: 08-25-2024 ambulatory Karon NOVAK Facility:[facility] Start: 08-21-2024 End: 08-21-[address] Monika Staley MD Work Phone: [facility] Work Phone: Start: 08-21-2024 End: 08-21-2024 Departed Referred Karon Corrales MD -[facility] [employer] Start: 08-21-2024 Registered Referred Karon casillas MD -[facility] [employer] Start: 08-21-2024 End: 08-21-2024 ambulatory Karon NOVAK Facility:[facility] Start: 08-18-2024 End: 08-18-[address] Monika Staley MD Work Phone: [facility] Work Phone: Start: 08-18-2024 End: 08-18-2024 Departed Referred Mahaveer Mukkamalla MD -[facility] [employer] [facility] Start: 08-18-2024 Registered Referred Karon casillas MD -[facility] Start: 08-18-2024 End: 08-18-2024 ambulatory Karon NOVAK Facility:[facility] Start: 08-14-2024 End: 08-14-[address] Monika Staley MD Work Phone: [facility] Work Phone: Start: 08-14-2024 End: 08-14-2024 Departed Referred Karon Corrales MD -[facility] Start: 08-14-2024 Registered Referred Karon casillas MD -[facility] [employer] [employer] Start: 08-14-2024 End: 08-14-2024 ambulatory Karon NOVAK Facility:[facility] Start: 08-11-2024 End: 08-11-2024 Departed Referred Karon Corrales MD -[facility] [employer] Start: 08-11-2024 Registered Referred Karon casillas MD -[facility] [employer] Start: 08-11-2024 End: 08-11-2024 ambulatory Karon NOVAK Facility:[facility] Start: 08-07-2024 End: 08-07-2024 Departed Referred Carlos Cavazos -[facility] [employer] Start: 08-07-2024 Registered Referred Carlos Reeder [facility] [employer] Start: 08-07-2024 End: 08-07-2024 ambulatory Carlos NOVAK Facility:[facility] Start: 08-04-2024 End: 08-04-[address] Monika Staley MD Work Phone: [facility] Work Phone: Start: 08-04-2024 End: 08-04-2024 Departed Referred Carlos Cavazos [facility] [employer] Start: 08-04-2024 Registered Referred Carlos Reeder [facility] [employer] [facility] Start: 08-04-2024 End: 08-04-2024 ambulatory Carlos NOVAK Facility:[facility] Start: 07-31-2024 End: 07-31-[address] Monika Staley MD Work Phone: [facility] Work Phone: Start: 07-31-2024 End: 07-31-2024 Departed Referred Karon Corrales MD -[facility] [employer] Start: 07-31-2024 Registered Referred Karon casillas MD -[facility] [employer] [facility] Start: 07-31-2024 End: 07-31-2024 ambulatory Karon NOVAK Facility:[facility] Start: 07-28-2024 End: 07-28-[address] Monika Staley MD Work Phone: [facility] Work Phone: Start: 07-28-2024 End: 07-28-2024 Departed Referred Karon Corrales MD -[facility] [employer] Start: 07-28-2024 Registered Referred Karon casillas MD -[facility] [employer] Start: 07-28-2024 End: 07-28-2024 ambulatory Karon NOVAK Facility:[facility] Start: 07-25-2024 End: 07-25-[address] Monika Staley MD Work Phone: [facility] Work Phone: Start: 07-25-2024 End: 07-25-2024 Departed Referred Carlos Cavazos [facility] [employer] Start: 07-25-2024 Registered Referred Carlos Cavazos - [employer] Start: 07-24-2024 End: 07-25-[address] Monika Staley MD Work Phone: [facility] Work Phone: Start: 07-24-2024 End: 07-24-2024 Departed Referred Karon Corrales MD -[facility] [employer] [employer] Start: 07-24-2024 Registered Referred Karon casillas MD -[facility] [employer] Start: 07-24-2024 End: 07-24-2024 ambulatory Karon NOVAK Facility:[facility] Start: 07-21-2024 End: 07-21-[address] Monika Staley MD Work Phone: [facility] Work Phone: Start: 07-21-2024 End: 07-21-2024 Departed Referred Karon Corrales MD -[facility] [employer] Start: 07-21-2024 Registered Referred Karon casillas MD -[facility] [employer] Start: 07-21-2024 End: 07-21-2024 ambulatory Karon NOVAK Facility:[facility] Start: 07-17-2024 End: 07-17-[address] Monika Staley MD Work Phone: [facility] Work Phone: Start: 07-17-2024 End: 07-17-2024 Departed Referred Karon Corrales MD -[facility] [employer] Start: 07-17-2024 Registered Referred Karon casillas MD -[facility] [employer] Start: 07-17-2024 End: 07-17-2024 ambulatory Carlaamber NOVAK Facility:[facility] Start: 07-14-2024 End: 07-14-[address] Monika Staley MD Work Phone: [facility] Work Phone: Start: 07-14-2024 End: 07-14-2024 Departed Referred Carlos Cavazos [facility] [employer] Start: 07-14-2024 Registered Referred Carlos Reeder [facility] Start: 07-14-2024 End: 07-14-2024 ambulatory Carlos NOVAK Facility:[facility] Start: 07-11-2024 End: 07-11-[address] Monika Staley MD Work Phone: [facility] Work Phone: Start: 07-11-2024 End: 07-11-2024 Departed Referred Carlos Maribelkameron -[facility] [employer] Start: 07-11-2024 Registered Referred Carlos Abdelrahmanviri - [facility] [employer] Start: 07-11-2024 End: 07-11-2024 ambulatory Carlos Abdelrahmanviri OLS Facility:[facility] Start: 07-07-2024 End: 07-07-[address] Monika Staley MD Work Phone: [facility] Work Phone: Start: 07-07-2024 End: 07-07-2024 Departed Referred Karon Corrales MD -[facility] [employer] Start: 07-07-2024 [facility] Start: 07-07-2024 End: 07-07-2024 ambulatory Karon NOVAK Facility:[facility] Start: 07-03-2024 End: 07-03-[address] Monika Staley MD Work Phone: [facility] Work Phone: Start: 07-03-2024 End: 07-03-2024 Departed Referred Kvng Crisostomo MD -[facility] [employer] Start: 07-03-2024 Registered Referred Kvng Crisostomo MD -[facility] [employer] Start: 07-03-2024 End: 07-03-2024 ambulatory Kvng NOVAK Facility:[facility] Start: 06-30-2024 End: 06-30-[address] Monika Staley MD Work Phone: [facility] Work Phone: Start: 06-30-2024 End: 06-30-2024 Departed Referred Kvng Crisostomo MD -[facility] Start: 06-30-2024 Registered Referred Kvng Crisostomo MD -[facility] Start: 06-30-2024 End: 06-30-2024 ambulatory Kvng NOVAK Facility:[facility] Start: 06-26-2024 ambulatory Kvng NOVAK Fac ility:[facility] Start: 06-26-2024 Registered Referred Kvng Crisostomo MD [facility] [employer] Start: 06-23-2024 End: 06-23-[address] Monika Staley MD Work Phone: [facility] Work Phone: Start: 06-23-2024 End: 06-23-2024 Departed Referred Carlos Cavazos [facility] [employer] Start: 06-23-2024 Registered Referred Carlos Cavazos - [facility] [employer] Start: 06-23-2024 End: 06-23-2024 ambulatory Carlos NOVAK Facility:[facility] Start: 06-19-2024 End: 06-19-[address] Monika Staley MD Work Phone: [facility] Work Phone: Start: 06-19-2024 End: 06-19-2024 Departed Referred Kvng Crisostomo MD -[facility] [employer] Start: 06-19-2024 Registered Referred Kvng Crisostomo MD -[facility] [employer] Start: 06-19-2024 End: 06-19-2024 ambulatory Kvng NOVAK Facility:[facility] Start: 06-16-2024 End: 06-16-[address] Monika Staley MD Work Phone: [facility] Work Phone: Start: 06-16-2024 End: 06-16-2024 Departed Referred Kvng Crisostomo MD -[facility] Start: 06-16-2024 Registered Referred Kvng Crisostomo MD -[facility] Start: 06-16-2024 End: 06-16-2024 ambulatory Kvng NOVAK Facility:[facility] Start: 06-12-2024 End: 06-12-[address] Monika Staley MD Work Phone: [facility] Work Phone: Start: 06-12-2024 End: 06-12-2024 Departed Referred Kvng Crisostomo MD -[facility] Start: 06-12-2024 Registered Referred Kvng Crisostomo MD -[facility] Start: 06-12-2024 End: 06-12-2024 ambulatory Kvng NOVAK Facility:[facility] Start: 06-09-2024 End: 06-09-[address] Monika Staley MD Work Phone: [facility] Work Phone: Start: 06-09-2024 End: 06-09-2024 Departed Referred Carlos Cavazos [facility] Start: 06-09-2024 Registered Referred Carlos Cavazos - [facility] Start: 06-09-2024 End: 06-09-2024 ambulatory Carlos NOVAK Facility:[facility] Start: 06-05-2024 End: 06-05-[address] Monika Staley MD Work Phone: [facility] Work Phone: Start: 06-05-2024 End: 06-05-2024 Departed Referred Kvng Crisostomo MD -[facility] Start: 06-05-2024 End: 06-05-2024 ambulatory Kvng NOVAK Facility:[facility] Start: 06-02-2024 End: 06-02-[address] Monika Staley MD Work Phone: [facility] Work Phone: Start: 06-02-2024 End: 06-02-2024 Departed Referred Babbaljeet Crisostomo MD -[facility] Start: 06-02-2024 Registered Referred Kvng Crisostomo MD -[facility] Start: 06-02-2024 End: 06-02-2024 ambulatory Kvng NOVAK Facility:[facility] Start: 05-29-2024 End: 05-29-[address] Monika Staley MD Work Phone: [facility] Work Phone: Start: 05-29-2024 End: 05-29-2024 Departed Referred Kvng Crisostomo MD -[facility] Start: 05-29-2024 Registered Referred Kvng Crisostomo MD -[facility] [employer] [facility] Start: 05-29-2024 End: 05-29-2024 ambulatory Kvng NOVAK Facility:[facility] Start: 05-26-2024 End: 05-26-[address] Monika Staley MD Work Phone: [facility] Work Phone: Start: 05-26-2024 End: 05-26-2024 Departed Referred Carlos Cavazos [facility] Start: 05-26-2024 Registered Referred Carlos Cavazos - [facility] Start: 05-26-2024 End: 05-26-2024 ambulatory Carlos NOVAK Facility:[facility] Start: 05-22-2024 ambulatory Kvng NOVAK Fac ility:[facility] Start: 05-22-2024 Registered Referred Kvng Crisostomo MD -[facility] Start: 05-20-2024 End: 05-20-2024 Departed Referred Kvng Crisostomo MD [facility] Start: 05-19-2024 End: 05-20-2024 ambulatory Kvng NOVAK Facility:[facility] Start: 05-19-2024 Registered Referred Kvng Crisostomo MD [facility] Start: 05-15-2024 End: 05-15-2024 Departed Referred Kvng Crisostomo MD [facility] Start: 05-15-2024 End: 05-15-2024 ambulatory Elizabethmilton Andressa NOVAK Facility:[facility] Start: 05-12-2024 End: 05-12-2024 Departed Referred Carlos Cavazos [facility] Start: 05-12-2024 End: 05-12-2024 ambulatory Carlos NOVAK Facility:[facility] Start: 05-09-2024 End: 05-09-2024 Departed Referred Kvng Crisostomo MD [facility] Start: 05-09-2024 End: 05-09-2024 ambulatory Kvng NOVAK Facility:[facility] Start: 05-08-2024 End: 05-08-2024 Departed Referred Kvng Crisostomo MD [facility] Start: 05-08-2024 End: 05-08-2024 ambulatory Kvng NOVAK Facility:[facility] Start: 05-05-2024 End: 05-05-2024 Departed Referred Kvng Crisostomo MD [facility] Start: 05-05-2024 End: 05-05-2024 ambulatory Vicenterocio Andressa NOVAK Facility:[facility] Start: 05-01-2024 End: 05-01-2024 Departed Referred Kvng Crisostomo MD [facility] Start: 05-01-2024 End: 05-01-2024 ambulatory Vicenterocio Andressa NOVAK Facility:[facility] Start: 04-28-2024 End: 04-28-2024 Departed Referred Carlos Cavazos [facility] Start: 04-28-2024 End: 04-28-2024 ambulatory Carlos NOVAK Facility:[facility] Start: 04-24-2024 End: 04-24-2024 Departed Referred Kvng Crisostomo MD [facility] Start: 04-24-2024 End: 04-24-2024 ambulatory Vicenterocio Andressa NOVAK Facility:[facility] Start: 04-21-2024 End: 04-21-2024 Departed Referred Carlos Cavazos [facility] Start: 04-21-2024 End: 04-21-2024 ambulatory Carlos NOVAK Facility:[facility] Start: 04-17-2024 ambulatory Kvng NOVAK Fac ility:[facility] Start: 04-17-2024 Registered Referred Kvng Crisostomo MD [facility] Start: 04-14-2024 ambulatory Kvng NOVAK Fac ility:[facility] Start: 04-14-2024 Registered Referred Kvng Crisostomo MD [facility] Start: 04-10-2024 End: 04-10-2024 Departed Referred Kvng Crisostomo MD [facility] Start: 04-10-2024 End: 04-10-2024 ambulatory Kvng NOVAK Facility:[facility] Start: 04-07-2024 End: 04-07-2024 Departed Referred aCrlos Cavazos -[facility] Start: 04-07-2024 End: 04-07-2024 ambulatory Carlos NOVAK Facility:[facility] Start: 04-04-2024 ambulatory Kvng NOVAK Fac ility:[facility] Start: 04-04-2024 Registered Referred Kvng Crisostomo MD [facility] Start: 03-31-2024 End: 03-31-2024 Departed Referred Carlos Cavazos [facility] Start: 03-31-2024 End: 03-31-2024 ambulatory Carlos NOVAK Facility:[facility] Start: 03-27-2024 End: 03-27-2024 Departed Referred [facility] Start: 03-27-2024 End: 03-27-2024 ambulatory [facility] Facility[facility] Start: 03-24-2024 End: 03-24-2024 Departed Referred Kvng Crisostomo MD -[facility] Start: 03-24-2024 End: 03-24-2024 ambulatory Kvng NOVAK Facility:[facility] Start: 03-20-2024 End: 03-20-2024 Departed Referred [facility] Start: 03-20-2024 End: 03-20-2024 ambulatory [facility] [facility] Start: 03-19-2024 End: 03-19-2024 Departed Referred Kvng Crisostomo MD [facility] Start: 03-19-2024 End: 03-19-2024 ambulatory Kvng NOVAK Facility:[facility] Start: 03-18-2024 End: 03-18-2024 Departed [facility]erred [facility] Start: 03-18-2024 End: 03-18-2024 ambulatory [facility] Facility:[facility] Start: 03-17-2024 End: 03-17-2024 Departed Referred [facility] Start: 03-17-2024 End: 03-17-2024 ambulatory [facility] Facility:[facility] Start: 03-14-2024 End: 03-14-2024 Departed Referred Carlos Cavazos [facility] Start: 03-14-2024 End: 03-14-2024 ambulatory Carlos NOVAK Facility:[facility] Start: 03-13-2024 End: 03-13-2024 Departed Referred [facility] Start: 03-13-2024 End: 03-13-2024 ambulatory [facility] Facility:[facility] Start: 03-10-2024 End: 03-10-2024 ambulatory [facility] Facility:[facility] Start: 03-06-2024 End: 03-06-2024 ambulatory [facility] Facility:[facility] Start: 03-03-2024 End: 03-03-2024 ambulatory [facility] Facility:[facility] Start: 02-28-2024 End: 02-28-2024 ambulatory [facility] Facility:[facility] Start: 02-25-2024 End: 02-25-2024 ambulatory Carlos NOVAK Facility:[facility] Start: 09-13-2023 End: 09-13-2023 ambulatory [facility] Start: 09-13-2023 End: 09-13-2023 Office outpatient visit 25 minutes Rebecca Buck MD Work Phone: [facility] Comment on above: Left flank pain (Christina magui Dx); BPH with urinary obstruction; History of kidney stones Start: 09-06-2023 End: 09-07-2023 ambulatory [facility] Start: 09-06-2023 End: 09-06-2023 Subsequent hospital visit by physician Rebecca Buck MD Work Phone: [facility] CT Imaging Comment on above: Left flank pain; Calculus of ureter Start: 08-31-2023 ambulatory Eloise Stern RN [facility] Clinical Communication Start: 08-31-2023 Patient encounter procedure Eloise Stern RN [facility] Clinical Communication Start: 08-21-2023 Telephone encounter Rebecca Buck MD Work Phone: [facility] Clinical Communication Comment on above: CT appt Boaz advice Start: 08-21-2023 Registered Referred [facility] Start: 08-13-2023 End: 08-13-2023 ambulatory [facility] Start: 08-13-2023 End: 08-13-2023 Office outpatient new 45 minutes Rebecca Buck MD Work Phone: [facility] Comment on above: Left flank pain (Christina magui Dx); Calculus of ureter; Disease of prostate; BPH with urinary obstruction Start: 08-03-2023 End: 08-03-2023 ambulatory [facility] Work Phone: Start: 08-03-2023 End: 08-03-2023 Departed Referred [facility] Start: 07-20-2023 End: 07-20-2023 [facility] Work Phone: Start: 07-20-2023 End: 07-20-2023 Departed Referred [facility] Start: 07-20-2023 [facility] Start: 07-18-2023 End: 07-18-2023 ambulatory [facility] Work Phone: Start: 07-18-2023 End: 07-18-2023 Departed Referred [facility] Start: 07-18-2023 Registered Referred [facility] Start: 07-16-2023 End: 07-16-2023 ambulatory [facility] Work Phone: Start: 07-16-2023 End: 07-16-2023 [facility] Start: 07-16-2023 [facility] Start: 07-13-2023 End: 07-13-2023 ambulatory [facility] Work Phone: Start: 07-13-2023 End: 07-13-2023 [facility] Start: 07-13-2023 Registered Referred [facility] Start: 07-12-2023 End: 07-12-2023 ambulatory [facility] Work Phone: Start: 07-12-2023 End: 07-12-2023 [facility] Start: 07-12-2023 Registered Referred [facility] Start: 07-05-2023 End: 07-05-2023 ambulatory [facility] Work Phone: Start: 07-05-2023 End: 07-05-2023 [facility] Start: 07-05-2023 [facility] Start: 07-02-2023 [facility] Start: 06-28-2023 End: 06-28-2023 ambulatory [facility] Work Phone: Start: 06-28-2023 End: 06-28-2023 [facility] Start: 06-28-2023 [facility] Start: 06-25-2023 Telephone encounter Rebecca Buck MD Work Phone: [facility] Start: 06-25-2023 End: 06-25-2023 ambulatory [facility] Work Phone: Start: 06-25-2023 End: 06-25-2023 [facility] Start: 06-25-2023 [facility] Start: 06-21-2023 End: 06-21-2023 ambulatory [facility] Work Phone: Start: 06-21-2023 End: 06-21-2023 [facility] Start: 06-21-2023 [facility] Start: 06-13-2023 End: 06-13-2023 ambulatory [facility] Work Phone: Start: 06-13-2023 End: 06-13-2023 [facility] Start: 06-06-2023 End: 06-06-2023 ambulatory [facility] Work Phone: Start: 06-06-2023 End: 06-06-2023 [facility] Start: 06-06-2023 [facility] Start: 05-23-2023 End: 05-23-2023 ambulatory [facility] Work Phone: Start: 05-23-2023 End: 05-23-2023 [facility] Start: 05-09-2023 End: 05-09-2023 [facility] Start: 05-09-2023 Registered Referred [facility] Start: 04-23-2023 End: 04-23-2023 [facility] Start: 04-09-2023 End: 04-09-2023 ambulatory [facility] Work Phone: Start: 04-09-2023 End: 04-09-2023 [facility] Start: 04-09-2023 [facility] Start: 04-02-2023 End: 04-02-2023 ambulatory [facility] Work Phone: Start: 04-02-2023 End: 04-02-2023 [facility] Start: 04-02-2023 [facility] Start: 03-26-2023 End: 03-26-2023 ambulatory [facility] Work Phone: Start: 03-26-2023 End: 03-26-2023 [facility] Start: 03-26-2023 [facility] Start: 03-22-2023 End: 03-22-2023 ambulatory [facility] Work Phone: Start: 03-22-2023 End: 03-22-2023 [facility] Start: 03-22-2023 [facility] Start: 03-08-2023 End: 03-08-2023 ambulatory [facility] Work Phone: Start: 03-08-2023 End: 03-08-2023 [facility] Start: 02-22-2023 End: 02-22-2023 ambulatory [facility] Work Phone: Start: 02-22-2023 End: 02-22-2023 Departed Referred [facility] Start: 02-22-2023 Registered Referred [facility] Start: 02-15-2023 End: 02-15-2023 ambulatory [facility] Work Phone: Start: 02-15-2023 End: 02-15-2023 Departed Referred [facility] Start: 02-15-2023 Registered Referred [facility] Start: 02-08-2023 End: 02-08-2023 ambulatory [facility] Work Phone: Start: 02-08-2023 End: 02-08-2023 Departed Referred [facility] Start: 01-31-2023 End: 01-31-2023 ambulatory [facility] Work Phone: Start: 01-31-2023 End: 01-31-2023 Departed Referred [facility] Start: 01-31-2023 Registered Referred [facility] Start: 01-29-2023 End: 01-29-2023 Departed Referred [facility] Start: 01-29-2023 Registered Referred [facility] Start: 01-26-2023 End: 01-26-2023 Departed Referred [facility] Start: 01-26-2023 Registered Referred [facility] Start: 01-24-2023 End: 01-24-2023 Departed Referred [facility] Start: 01-24-2023 Registered Referred [facility] Start: 01-22-2023 End: 01-22-2023 ambulatory [facility] Work Phone: Start: 01-22-2023 End: 01-22-2023 Departed Referred [facility] Start: 01-22-2023 [facility] Start: 01-10-2023 End: 01-10-2023 ambulatory [facility] Work Phone: Start: 01-10-2023 End: 01-10-2023 [facility] Start: 01-10-2023 [facility] Start: 12-27-2022 End: 12-27-2022 ambulatory [facility] Work Phone: Start: 12-27-2022 End: 12-27-2022 [facility] Start: 12-27-2022 [facility] Start: 12-21-2022 End: 12-21-2022 ambulatory [facility] Work Phone: Start: 12-21-2022 End: 12-21-2022 [facility] Start: 12-21-2022 [facility] Start: 12-14-2022 End: 12-14-2022 ambulatory [facility] Work Phone: Start: 12-14-2022 End: 12-14-2022 [facility] Start: 12-14-2022 [facility] Start: 12-07-2022 End: 12-07-2022 ambulatory [facility] Work Phone: Start: 12-07-2022 End: 12-07-2022 [facility] Start: 12-07-2022 [facility] Start: 11-24-2022 End: 11-24-2022 ambulatory [facility] Work Phone: Start: 11-24-2022 End: 11-24-2022 Departed Referred [facility] Start: 11-24-2022 Registered Referred [facility] Start: 11-23-2022 End: 11-23-2022 ambulatory [facility] Work Phone: Start: 11-23-2022 End: 11-23-2022 [facility] Start: 11-23-2022 [facility] Start: 11-22-2022 End: 11-22-2022 ambulatory [facility] Work Phone: Start: 11-22-2022 End: 11-22-2022 [facility] Start: 11-22-2022 [facility] Start: 11-09-2022 End: 11-09-2022 ambulatory [facility] Work Phone: Start: 11-09-2022 End: 11-09-2022 [facility] Start: 11-09-2022 Registered Referred [facility] Start: 10-26-2022 End: 10-26-2022 [facility] Start: 10-26-2022 Registered Referred [facility] Start: 10-12-2022 End: 10-12-2022 ambulatory [facility] Work Phone: Start: 10-12-2022 End: 10-12-2022 [facility] Start: 10-12-2022 [facility] Start: 10-05-2022 End: 10-05-2022 [facility] Start: 10-05-2022 [facility] Start: 09-28-2022 End: 09-28-2022 ambulatory [facility] Work Phone: Start: 09-28-2022 End: 09-28-2022 [facility] Start: 09-14-2022 End: 09-14-2022 [facility] Start: 08-31-2022 End: 08-31-2022 [facility] Start: 08-31-2022 [facility] Start: 08-23-2022 End: 08-23-2022 ambulatory [facility] Work Phone: Start: 08-23-2022 End: 08-23-2022 [facility] Start: 08-23-2022 [facility] Start: 08-17-2022 End: 08-17-2022 ambulatory [facility] Work Phone: Start: 08-17-2022 End: 08-17-2022 [facility] Start: 08-17-2022 [facility] Start: 08-14-2022 End: 08-14-2022 ambulatory [facility] Work Phone: Start: 08-14-2022 End: 08-14-2022 [facility] Start: 08-14-2022 [facility] Start: 07-31-2022 End: 07-31-2022 ambulatory [facility] Work Phone: Start: 07-31-2022 End: 07-31-2022 [facility] Start: 07-31-2022 [facility] Start: 07-24-2022 End: 07-24-2022 ambulatory [facility] Work Phone: Start: 07-24-2022 End: 07-24-2022 [facility] Start: 07-24-2022 [facility] Start: 07-20-2022 End: 07-20-2022 [facility] Start: 07-20-2022 [facility] Start: 07-17-2022 End: 07-17-2022 [facility] Start: 07-17-2022 [facility] Start: 07-11-2022 [facility] Start: 07-10-2022 End: 07-10-2022 ambulatory [facility] Work Phone: Start: 07-10-2022 End: 07-10-2022 [facility] Start: 07-10-2022 [facility] Start: 07-03-2022 End: 07-03-2022 ambulatory [facility] Work Phone: Start: 07-03-2022 End: 07-03-2022 [facility] Start: 07-03-2022 [facility] Start: 06-27-2022 End: 06-27-2022 ambulatory [facility] Work Phone: Start: 06-27-2022 End: 06-27-2022 [facility] Start: 06-27-2022 [facility] Start: 06-13-2022 End: 06-13-2022 ambulatory [facility] Work Phone: Start: 06-13-2022 End: 06-13-2022 [facility] Start: 06-13-2022 Registered Referred [facility] Start: 06-06-2022 End: 06-06-2022 ambulatory [facility] Work Phone: Start: 06-06-2022 End: 06-06-2022 [facility] Start: 06-06-2022 [facility] Start: 05-30-2022 End: 05-30-2022 ambulatory [facility] Work Phone: Start: 05-30-2022 End: 05-30-2022 [facility] Start: 05-30-2022 [facility] Start: 05-16-2022 End: 05-16-2022 ambulatory [facility] Work Phone: Start: 05-16-2022 End: 05-16-2022 [facility] Start: 05-16-2022 [facility] Start: 05-02-2022 End: 05-02-2022 ambulatory [facility] Work Phone: Start: 05-02-2022 End: 05-02-2022 [facility] Start: 05-02-2022 [facility] Start: 04-27-2022 End: 04-27-2022 ambulatory [facility] Work Phone: Start: 04-27-2022 End: 04-27-2022 [facility] Start: 04-27-2022 [facility] Start: 04-26-2022 End: 04-26-2022 ambulatory [facility] Work Phone: Start: 04-26-2022 End: 04-26-2022 [facility] Start: 04-11-2022 End: 04-11-2022 ambulatory [facility] Work Phone: Start: 04-11-2022 End: 04-11-2022 [facility] Start: 03-28-2022 End: 03-28-2022 [facility] Start: 03-28-2022 Registered Referred [facility] Start: 03-23-2022 End: 03-23-2022 [facility] Start: 03-23-2022 [facility] Start: 03-16-2022 End: 03-16-2022 ambulatory [facility] Work Phone: Start: 03-16-2022 End: 03-16-2022 [facility] Start: 03-16-2022 [facility] Start: 03-09-2022 End: 03-09-2022 ambulatory [facility] Work Phone: Start: 03-09-2022 End: 03-09-2022 [facility] Start: 03-09-2022 [facility] Start: 03-06-2022 End: 03-06-2022 ambulatory [facility] Work Phone: Start: 03-06-2022 End: 03-06-2022 [facility] Start: 03-06-2022 [facility] Start: 03-02-2022 End: 03-03-2022 Emergency department patient visit UNKNOWN PROVIDER [facility] Start: 03-02-2022 End: 03-02-2022 Emergency department patient visit Lanette Munguia DO Work Phone: [facility] Emergency Dept Comment on above: Fall, initial encoun ter (Primary Dx); Anticoagulated Start: 02-20-2022 End: 02-20-2022 Departed Referred [facility] Start: 02-20-2022 Registered Referred [facility] Start: 02-13-2022 End: 02-13-2022 ambulatory [facility] Work Phone: Start: 02-13-2022 End: 02-13-2022 Departed Referred [facility] Start: 02-13-2022 Registered Referred [facility] Start: 02-06-2022 End: 02-06-2022 ambulatory [facility] Work Phone: Start: 02-06-2022 End: 02-06-2022 [facility] Start: 02-06-2022 [facility] Start: 01-30-2022 End: 01-30-2022 [facility] Start: 01-30-2022 [facility] Start: 01-26-2022 End: 01-26-2022 ambulatory [facility] Work Phone: Start: 01-26-2022 End: 01-26-2022 [facility] Start: 01-26-2022 [facility] Start: 01-19-2022 End: 01-19-2022 ambulatory [facility] Work Phone: Start: 01-19-2022 End: 01-19-2022 Departed Referred [facility] Start: 01-19-2022 [facility] Start: 01-17-2022 ambulatory [facility] Start: 01-10-2022 ambulatory [facility] Start: 01-10-2022 End: 01-10-2022 ambulatory [facility] Work Phone: Start: 01-10-2022 End: 01-10-2022 Departed Referred [facility] Start: 01-10-2022 [facility] Start: 01-06-2022 AUDIT Monika Elias rt Work Phone: [facility] Work Phone: Start: 01-05-2022 End: 01-05-2022 [facility] Start: 01-05-2022 [facility] Start: 12-30-2021 End: 12-30-2021 [facility] Start: 12-30-2021 [facility] Start: 12-28-2021 End: 12-28-2021 ambulatory [facility] Work Phone: Start: 12-28-2021 End: 12-28-2021 [facility] Start: 12-28-2021 [facility] Start: 12-26-2021 End: 12-26-2021 ambulatory [facility] Work Phone: Start: 12-26-2021 End: 12-26-2021 [facility] Start: 12-26-2021 [facility] Start: 12-22-2021 End: 12-22-2021 ambulatory [facility] Work Phone: Start: 12-22-2021 End: 12-22-2021 [facility] Start: 12-22-2021 [facility] Start: 12-22-2021 End: 12-22-2021 [facility] Start: 12-21-2021 End: 12-22-2021 Emergency department patient visit Sharon Olivia MD Work Phone: [facility] Emergency Dept Comment on above: Heel ulceration, lef t, with unspecified severity (HCC) (Primary Dx) Start: 12-19-2021 End: 12-19-2021 ambulatory [facility] Work Phone: Start: 12-19-2021 End: 12-19-2021 Departed Referred [facility] Start: 12-19-2021 [facility] Start: 12-12-2021 End: 12-12-2021 ambulatory [facility] Work Phone: Start: 12-12-2021 End: 12-12-2021 [facility] Start: 12-12-2021 [facility] Start: 12-08-2021 End: 12-08-2021 ambulatory [facility] Work Phone: Start: 12-08-2021 End: 12-08-2021 [facility] Start: 12-08-2021 [facility] Start: 12-05-2021 End: 12-05-2021 ambulatory [facility] Work Phone: Start: 12-05-2021 End: 12-05-2021 [facility] Start: 12-05-2021 Registered Ref[facility] Start: 12-01-2021 End: 12-01-2021 [facility] Start: 12-01-2021 [facility] Start: 11-28-2021 End: 11-28-2021 [facility] Start: 11-28-2021 [facility] Start: 11-25-2021 Rx Renewal Monika Horner evelyn rt Work Phone: [employer] Work Phone: Start: 11-23-2021 End: 11-23-2021 [facility]ed [facility] Start: 11-23-2021 [facility] Start: 11-22-2021 End: 11-22-2021 [facility] Start: 11-22-2021 [facility] Start: 11-21-2021 End: 11-21-2021 [facility] Start: 11-15-2021 AUDIT Monika Horner evelyn rt Work Phone: [facility]Tfte[facility] Work Phone: Start: 11-14-2021 End: 11-14-2021 [facility] Start: 11-14-2021 [facility] Start: 11-08-2021 End: 11-08-2021 [facility] Start: 11-08-2021 [facility] Start: 11-04-2021 End: 11-04-2021 [facility] Start: 11-04-2021 [facility] Start: 10-31-2021 End: 11-01-2021 Emergency department patient visit UNKNOWN PROVIDER [facility] Start: 10-31-2021 End: 11-01-2021 Emergency department patient visit Dante Kim MD Work Phone: [facility] Emergency Dept Comment on above: Other fatigue (Prima ry Dx) Start: 10-31-2021 End: 10-31-2021 Departed Referred [facility] Start: 10-21-2021 End: 10-29-2021 Evaluation and management of inpatient UNKNOWN PROVIDER [facility] Start: 10-21-2021 End: 10-29-2021 Evaluation and management of inpatient Lisa Michelle DO Work Phone: [facility] Comment on above: Leg swelling (Primar y Dx); Acute deep vein thrombosis (DVT) of proximal vein of lower extremity, unspecified laterality (HCC) Start: 10-20-2021 End: 10-20-2021 Departed Referred [facility] Start: 10-17-2021 Telephone encounter Nicoel davis MD Work Phone: [facility] Comment on above: Missed Appointment Start: 09-19-2021 End: 09-19-2021 Departed Referred [facility] Start: 11-02-2020 AUDIT Monika Elias rt Work Phone: [facility] Work Phone: Start: 10-27-2020 AUDIT Monika Elias rt Work Phone: [facility] Work Phone: Start: 07-13-2020 Patient encounter procedure Monika Staley [facility] Work Phone: Start: 04-13-2020 Patient encounter procedure Wing Ritter [facility] Work Phone: Start: 04-07-2020 Patient encounter procedure Wing Ritter [facility] Work Phone: Start: 03-18-2020 Patient encounter procedure Wing [facility] Work Phone: Start: 01-20-2020 Patient encounter procedure Monika Staley MD DR-Apkhwshexh-Cbvau Work Phone: Start: 11-13-2019 End: 11-13-2019 Subsequent hospital visit by physician [facility] Comment on above: Non-pressure chronic ulcer left lower leg, 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] Start: 11-06-2019 Patient encounter procedure Monika Staley MD VS-Eiwsypdbvs-Jjubv Work Phone: Start: 06-18-2019 End: 06-18-2019 Subsequent [...] Start: 10-26-2021 Electroencephalogram w/rec awake&asleep Sarina Pineda [employer] Work Phone: Start: 10-26-2021 Ct head/brain w/o co ntrast material Sarina Isabel Edwin [employer] Work Phone: Start: 10-26-2021 Prothrombin time Andres Sheridan MD Work Phone: Start: 10-25-2021 Speech and language therapy regime Sarina Isabel Edwin [employer] Work Phone: Start: 10-25-2021 Prothrombin time Andres [...] Blood count reticulo cyte automated Ellen Scherer [employer] Work Phone: Start: 10-21-2021 C-reactive protein Jax irizarry B Niesha [employer] Work Phone: Start: 10-21-2021 Non-invas physiologi c std extremity art 2 level Shruthi Malik [employer] Work Phone: Start: 10-21-2021 Radex calcaneus mini mum 2 views Shruthi Malik [employer] Work Phone: Start: 10-21-2021 Dup-scan xtr veins [...] Comment: Speci men Type: BLOOD SPECIMENOrdering Facility: [facility] Address: [address] [place] [address] Performed By: #### T SCR ####[facility] BLOOD BANKCLIA [id number] [address] Start: 08-04-2021 Antibody screen Comment on above: Order Comment: Speci men Type: BLOOD SPECIMENOrdering Facility: [facility] Address: [address] [place] [address] Performed By: #### T SCR ####[facility] BLOOD BANKCLIA [id number] [address] Start: 08-01-2021 Antibody screen Comment on above: Order Comment: Speci men Type: BLOOD SPECIMENOrdering Facility: [facility] Address: [address] [place] [address] Performed By: #### T SCR ####[facility] BLOOD BANKCLIA [id number] [address] Start: 06-07-2021 Antibody screen Comment on above: Order Comment: Speci men Type: BLOOD SPECIMEN Performed By: #### T SCR ####[facility] BLOOD BANKCLIA [id number] [place] [address] [facility] Start: 09-02-2020 Lipid 1996 panel - S bradly or Plasma Rebecca Buck MD Work Phone: Start: 04-07-2020 Echocardiography Wing Ritter Start: 11-13-2019 Radiologic examinati on tibia & fibula 2 views 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 (System Operation Superintendent) Debbie Work Phone: Hernia repair Monika melvin History of Cholecystotomy An yvette Staley History of Creation Of Subdural-Peritoneal CSF Shunt Monika Staley 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 Start: 08-22-2024 DIABETES SCREEN [facility]EN [facility] Start: 12-04-2023 Lipid panel Lipids [facility] Start: 12-04-2023 Lipid screen Lipid screen [facility] Work Phone: Start: 09-13-2023 End: 09-13-2023 Patient encounter procedure 09/13/2023 11:30 AM EDT Office Visit [facility] Medical [facility] Urology [address] [place] [id number] Rebecca Buck MD [address] [place] [address] [facility] Start: 08-31-2023 End: 08-31-2023 Patient encounter procedure 08/31/2023 9:30 AM EDT Appointment [facility] CT Imaging [address] [place] [id number] Rebecca Buck MD [address] [place] [address] [facility] CT Imaging Start: 08-13-2023 End: 08-12-2024 Basic metabolic 1998 panel - Serum or Plasma Basic metabolic panel Lab Routine Calculus of ureter Expected: 08/13/2023 (Approximate), Expires: 08/12/2024 [facility] Comment on above: Expected: 08/13/2023 (Approximate), Expires: 08/12/2024 Start: 08-13-2023 End: 08-12-2024 CT Abdomen WO contrast CT abdomen pelvis wo IV contrast Imaging Routine Left flank pain Calculus of ureter Expected: 08/13/2023, Expires: 08/12/2024 [facility] Comment on above: Expected: 08/13/2023 , Expires: 08/12/2024 Start: 08-13-2023 End: 02-12-2024 PSA, Monitoring ([facility]) PSA, Monitoring ([facility]) Lab Routine Disease of prostate Expected: 08/13/2023 (Approximate), Expires: 02/12/2024 [facility] [employer] Work Phone: Comment on above: Expected: 08/13/2023 (Approximate), Expires: 02/12/2024 Start: 08-13-2023 End: 08-13-2023 Patient encounter procedure 08/13/2023 10:00 AM EDT Office Visit [facility] [address] [place] [id number] Rebecca Buck MD [address] [facility] [address] [place] [address] [facility] Start: 07-17-2023 Bacteria identified in Urine by Culture [facility] Start: 07-17-2023 [facility] Start: 07-16-2023 Measurement of substance [facility] Start: 05-07-2023 Medicare Advantage A nnual Wellness Visit Medicare Advantage Annual Wellness Visit [facility] Start: 03-02-2023 Creatinine measurement Creatinine Le carmela [facility] Start: 03-02-2023 Potassium measurement Potassium Leve l [facility] Start: 08-22-2022 Diabetes mellitus screening Diabetes Screening [facility] Start: 01-05-2022 Influenza vaccination [facility] Start: 12-23-2021 EPV, Provider: Wing Ritter, Status: Pen, Time: 9:30 AM EPV, Provider: Wing Ritter, Status: Pen, Time: 9:30 AM MZ-Gtsnloyrkf-Wqv ma Work Phone: Start: 12-05-2021 Influenza vaccination Flu vaccine (# 1) [facility] Start: 12-05-2021 Blood chemistry [facility] Work Phone: Start: 12-05-2021 Complete blood count [facility] Work Phone: Start: 12-05-2021 [facility] Work Phone: Start: 12-01-2021 [facility] Work Phone: Start: 08-05-2021 COVID-19 VACCINE (4 - Booster for Moderna series) COVID-19 VACCINE (4 - Booster for Moderna series) [facility] Start: 08-05-2021 COVID-19 Vaccine (4 - Booster for Pfizer series) COVID-19 Vaccine (4 - Booster for Pfizer series) [facility] Start: 06-01-2021 COVID-19 Vaccine (4 - Booster for Pfizer series) COVID-19 Vaccine (4 - Booster for Pfizer series) [facility] Start: 05-07-2021 ADVANCE DIRECTIVE DISCUSSION ADVANCE DIRECTIVE DISCUSSION [facility] Start: 08-11-2020 Screening for malign ant neoplasm of colon [facility] Start: 07-30-2020 Screening for malign ant neoplasm of colon [facility] Start: 01-20-2020 Echocardiography Echocardiogram MP-C [facility] [address] [place] Work Phone: Start: 01-06-2020 Influenza vaccination INFLUENZA (#1) [facility] Start: 12-04-2019 Annual Wellness Visi t (AWV) Annual Wellness Visit (AWV) [facility] Start: 12-04-2019 Creatinine monitoring [facility] mon [facility]oring [facility] Work [facility]: Start: 12-04-2019 Hepatitis C screen Hepatitis C scree n [facility] Work Phone: Comment on above: Postponed from 05/06 (Patient Refused) Start: 12-04-2019 Potassium monitoring Potassium monit oring [facility] Work Phone: Start: 12-04-2019 Prostate specific an tigen measurement Prostate Specific Antigen (PSA) Screening or Monitoring [facility] Start: 12-04-2019 Shingles Vaccine (1 of 2) Day gles Vaccine (1 of 2) [facility] Work Phone: Comment on above: Postponed from 05/06 (Patient Refused) Start: 06-07-2019 Colon Cancer Screen FIT/FOBT [facility] Work Phone: Start: 08-14-2017 LIPID SCREEN LIPID SCREEN [facility] Start: 2017 ADVANCE DIRECTIVE DISCUSSION ADVANCE DIRECTIVE DISCUSSION [facility] Start: 2017 PNEUMOCOCCAL: 65+ (1 - PCV) PNEUMOCOCCAL: 65+ (1 - PCV) [facility] Start: 2017 PNEUMOVAX AGE 65 AND OVER WITH 5YR LOOKBACK (#1) PNEUMOVAX AGE 65 AND OVER WITH 5YR LOOKBACK (#1) [facility] Start: 04-14-2016 DIABETES SCREEN DIABETES SCREEN [facility] Start: 2012 RSV Immunization age d 60 or older (1 - 1-dose 60+ series) RSV Immunization aged 60 or older (1 - 1-dose 60+ series) [facility] Start: 2007 PROSTATE CANCER SCRE ENING DISCUSSION PROSTATE CANCER SCREENING DISCUSSION [facility] Start: 2002 Shingles vaccine (1 of 2) Day gles vaccine (1 of 2) [facility] Start: 2002 SHINGRIX VACCINE (1 of 2) DAY GRIX VACCINE (1 of 2) [facility] Start: 2002 Tuberculosis screening COLOREC MONIQUE CANCER SCREENING,SEE MODIFIER [facility] Start: 2002 Zoster Vaccines (1 of 2) Zoste r Vaccines (1 of 2) [facility] Start: 1997 COLOGUARD (FIT-DNA) COLOGUARD (FIT-D NA) [facility] Start: 1997 Colonoscopy COLONOSCOPY [facility] Start: 1997 COLORECTAL CANCER SCREENING COLORECTAL CANCER SCREENING [facility] Start: [address] COLONOGRAPHY [facility] Start: 1997 FECAL OCCULT BLOOD FECAL OCCULT BLOO D [facility] Start: 1997 Screening for malign ant neoplasm of colon [facility] Start: 1997 SIGMOIDOSCOPY SIGMOIDOSCOPY [facility] Start: 1987 Diabetes screen Diabetes screen [facility] Start: 1971 Urine microalbumin profile DTAP,TDAP,TD (1 - Tdap) [facility] Start: 1970 ANNUAL PCP TEAM MAILROOM CLERK KEESHA DISEASE VISIT ANNUAL PCP TEAM CHRONIC DISEASE VISIT [facility] Start: 1970 BP CONTROLLED (<130/80) BP CONTROLLE D (<130/80) [facility] Start: 1970 Diabetes mellitus screening Diabetes Screening [facility] Start: 1970 HEPATITIS C SCREENING HEPATITIS C SC PHIL [facility] Start: 1970 Hepatitis C screening [facility] Start: 1964 Adult depression screening assessment DEPRESSION SCREENING [facility] Start: 1964 Depression Screen Depression Screen [facility] Start: 1962 Diabetic foot examination Diabetes: Foot Exam [facility] Start: 1962 Glaucoma screening Diabetes: R etinopathy Screening [facility] Start: 1962 Preventive dental service Diabetes: Dental Exam [facility] Start: 1952 Echocardiography Echocardiogram [facility] Start: 1952 Hemoglobin A1c measurement Diabetes: Hemoglobin A1C [facility] Start: 1952 Lipid panel Lipid Panel [facility] Start: 1952 Screening for malign ant neoplasm of colon [facility] Bacteria identified in Urine by Culture Urine Culture [facility] Work Phone: End: 03-02-2022 CBC W Auto Differential panel - Blood CBC with Auto Differential Lab Routine One Time for 1 Occurrences starting 03/02/2022 until 03/02/2022 [facility] Work Phone: Comment on above: One Time for 1 Occur rences starting 03/02/2022 until 03/02/2022 End: 03-02-2022 Comprehensive metabolic 2000 panel - Serum or Plasma Comprehensive Metabolic Panel Lab STAT One Time for 1 Occurrences starting 03/02/2022 until 03/02/2022 [facility] Work Phone: Comment on above: One Time for 1 Occur rences starting 03/02/2022 until 03/02/2022 End: 09-06-2023 CT Abdomen WO contrast [facility] Work Phone: Comment on above: Once for 1 Occurrenc es starting 09/06/2023 until 09/06/2023 End: 12-22-2021 Culture, Blood 2 Culture, Blood 2 Microbiology STAT One Time for 1 Occurrences starting 12/22/2021 until 12/22/2021 [facility] Work Phone: Comment on above: One Time for 1 Occur rences starting 12/22/2021 until 12/22/2021 End: 12-22-2021 Microscopic examination of blood, culture Culture, Blood Microbiology STAT One Time for 1 Occurrences starting 12/22/2021 until 12/22/2021 [facility] Work Phone: Comment on above: One Time for 1 Occur rences starting 12/22/2021 until 12/22/2021 Microscopic examinat ion of blood, culture Culture, Blood Microbiology STAT 12/22/2021 12:22 AM EDT [facility] Work Phone: Oxygen therapy [[facility] Data Set] Initiate Oxygen Therapy Protocol Respiratory Care Routine As Needed until discontinued starting 10/21/2021 [facility] Comment on above: As Needed until disc ontinued starting 10/21/2021 Protime-INR Protime-INR Lab Routine Daily until discontinued starting 10/23/2021, 7 completed [facility] Work Phone: Comment on above: Daily until disconti nued starting 10/23/2021, 7 completed End: 03-02-2022 Protime-INR Protime-INR Lab Routine One Time for 1 Occurrences starting 03/02/2022 until 03/02/2022 [facility] Work Phone: Comment on above: One Time for 1 Occur rences starting 03/02/2022 until 03/02/2022 Spirometry panel Incentive stef metry Respiratory Care Routine Daily until discontinued starting 10/21/2021 [facility] Work Phone: Comment on above: Daily until disconti nued starting 10/21/2021 End: 10-21-2021 Wound ostomy eval Wound ostomy eval Wound Ostomy Routine One Time for 1 Occurrences starting 10/21/2021 until 10/21/2021 [facility] Work Phone: Comment on above: One Time for 1 Occur rences starting 10/21/2021 until 10/21/2021 [facility] NEGATED: Highlighted row has been ruled out! Planned Goals not documented HK[facility]Exevljovkb-Knc sc Work Phone: Immunizations Immunization Date Immunization Notes [...] e, quadrivalent, contains preservative Sarika Salas [facility] 02-08-2015 influenza virus vacc ine, unspecified formulation Sarika Salas [facility] Work Phone: 02-04-2013 pneumococcal Conjuga te, unspecified formulation Sarika Salas [facility] Work Phone: Payers Date Payer Category Payer Unknown [id number] 02-25-2024 Self-pay 01-05-2022 Medicaid 01-05-2022 Medicare 01-05-2022 Medicare [id number] 10-05-2021 Medicaid [id number] 06-07-2021 Medicare UHC MEDICARE UHC DUAL COMPLETE HMO SNP [id number] 06/07/2021-Present [phone] [address] [place] [address] Medicare [id number] 06-07-2021 Medicare UHC MEDICARE [employer] DUAL COMPLETE [id number] 06/07/2021-Present [phone] [address] [place] [address] [id number] [id number] 11-05-2019 Medicare UHC AARP MEDICAR E [facility] AARP MEDICARE HMO [id number] 11/05/2019-Present HMO [id number] [id number] 07-06-2015 Medicare UHC MEDICARE UHC MEDICARE COMPLETE xxxxxxxxx 2015-Present xxxxxxxxx [id number]. [id number] 1952 Unknown [id number] 2.16.840.1.437254.3.579. 2.668 1952 Unknown [id number] 2.16.840.1.971135.3.579. 2.668 1952 Unknown [id number] 2.16.840.1.622929.3.579. 2.668 1952 Unknown [id number] 2.16.840.1.043483.3.579. 2.668 1952 Unknown [id number] 2.16.840.1.217187.3.579. 2.668 1952 Unknown [id number] 2.840.1.189845.3.579. 2.668 1952 Unknown [id number] 2.840.1.515214.3.579. 2.668 Private Health Insurance Unknown Unknown [id number] 2.840.1.426044.3.579. 2.462 Unknown [id number] 2.840.1.676257.3.579. 2.462 Unknown [id number] 2.840.1.834366.3.579. 2.462 Unknown [id number] 2.840.1.817395.3.579. 2.462 Unknown [id number] 2.840.1.661085.3.579. 2.462 Unknown [id number] 2.840.1.542790.3.579. 2.462 Unknown [id number] 2.840.1.942786.3.579. 2.462 Unknown [id number] 2.840.1.326497.3.579. 2.462 Unknown [id number] 2.840.1.480990.3.579. 2.462 Unknown [id number] 2.840.1.790815.3.579. 2.462 Unknown [id number] 2.840.1.146175.3.579. 2.462 Unknown [id number] 2.840.1.824976.3.579. 2.462 Unknown [id number] 2.840.1.793522.3.579. 2.462 Unknown [id number] 2.840.1.884224.3.579. 2.462 Unknown [id number] 2.840.1.183114.3.579. 2.462 Unknown [id number] 2.16.840.1.640215.3.579. 2.462 Unknown [id number] 2.16.840.1.555960.3.579. 2.462 Unknown [id number] 2.16.840.1.889561.3.579. 2.462 Unknown [id number] 2.16.840.1.449959.3.579. 2.462 Unknown [id number] 2.16.840.1.069844.3.579. 2.462 Unknown [id number] 2.16.840.1.645697.3.579. 2.462 Unknown [id number] 2.16.840.1.595875.3.579. 2.462 Unknown [id number] 2.16840.1.347242.3.579. 2.462 Unknown [id number] 2.16840.1.822910.3.579. 2.462 Unknown [id number] 2.16.840.1.723732.3.579. 2.462 Unknown [id number] 2.16.840.1.936426.3.579. 2.462 Unknown [id number] 2.16.840.1.348215.3.579. 2.462 Unknown [id number] 2.16.840.1.809262.3.579. 2.462 Unknown [id number] 2.16.840.1.543099.3.579. 2.462 Unknown [id number] 2.16.840.1.202384.3.579. 2.462 Unknown [id number] 2.16.840.1.336034.3.579. 2.462 Unknown [id number] 2.16.840.1.856853.3.579. 2.462 Unknown [id number] 2.16.840.1.752088.3.579. 2.462 Unknown [id number] 2.16.840.1.838234.3.579. 2.462 Unknown [id number] 2.16.840.1.292471.3.579. 2.462 Unknown [id number] 2.16.840.1.318470.3.579. 2.462 Unknown [id number] 2.16.840.1.289027.3.579. 2.462 Unknown [id number] 2.840.1.927317.3.579. 2.462 Unknown [id number] 2..840.1.257016.3.579. 2.462 Unknown [id number] 2.840.1.689815.3.579. 2.462 Unknown [id number] 2.840.1.447040.3.579. 2.462 Unknown [id number] 2.840.1.529411.3.579. 2.462 Unknown [id number] 2.840.1.704608.3.579. 2.462 Unknown [id number] .840.1.415062.3.579. 2.462 Unknown [id number] .840.1.950760.3.579. 2.462 Unknown [id number] .840.1.422328.3.579. 2.462 Unknown [id number] .840.1.410487.3.579. 2.462 Unknown [id number] .840.1.899311.3.579. 2.462 Unknown [id number] .840.1.794804.3.579. 2.462 Unknown [id number] 2.840.1.562551.3.579. 2.462 Unknown [id number] 2.840.1.991121.3.579. 2.462 Unknown [id number] 2.840.1.578825.3.579. 2.462 Unknown [id number] 2.16.840.1.458576.3.579. 2.462 Unknown [id number] 2.16.840.1.329560.3.579. 2.462 Unknown [id number] 2.16.840.1.130151.3.579. 2.462 Unknown [id number] 2.16.840.1.157062.3.579. 2.462 Unknown [id number] 2.16.840.1.109949.3.579. 2.462 Unknown [id number] 2.16.840.1.884300.3.579. 2.462 Unknown [id number] 2.16.840.1.507473.3.579. 2.462 Unknown [id number] 2.16.840.1.866437.3.579. 2.462 Unknown [id number] 2.16.840.1.453361.3.579. 2.462 Unknown [id number] 2.16.840.1.794677.3.579. 2.462 Unknown [id number] 2.16.840.1.132249.3.579. 2.462 Unknown [id number] 2.16.840.1.146222.3.579. 2.462 Unknown [id number] 2.16.840.1.201341.3.579. 2.462 Unknown [id number] 2.16.840.1.973694.3.579. 2.462 Unknown [id number] 2.16.840.1.518325.3.579. 2.462 Unknown [id number] 2.16.840.1.107216.3.579. 2.462 Unknown [id number] 2.16.840.1.915960.3.579. 2.462 Unknown [id number] 2.16.840.1.141126.3.579. 2.462 Unknown [id number] 2.16.840.1.921750.3.579. 2.462 Unknown [id number] 2.16.840.1.909792.3.579. 2.462 Unknown [id number] 2.16.840.1.902784.3.579. 2.462 Unknown [id number] 2.16.840.1.002981.3.579. 2.462 Unknown [id number] 2.16.840.1.889679.3.579. 2.462 Unknown [id number] 2.16.840.1.936410.3.579. 2.462 Unknown [id number] 2.16.840.1.434153.3.579. 2.462 Unknown [id number] 2.16.840.1.192532.3.579. 2.462 Unknown [id number] 2..840.1.520359.3.579. 2.462 Unknown [id number] 2.840.1.909723.3.579. 2.462 Unknown [id number] 2..840.1.336646.3.579. 2.462 Unknown [id number] 2.16.840.1.262430.3.579. 2.462 Unknown [id number] 2.16.840.1.704938.3.579. 2.462 Unknown [id number] 2.16.840.1.216522.3.579. 2.462 Unknown [id number] 2.16.840.1.385436.3.579. 2.462 Unknown [id number] 2.16.840.1.210094.3.579. 2.462 Unknown [id number] 2.16.840.1.194573.3.579. 2.462 Unknown [id number] 2.16.840.1.729302.3.579. 2.462 Unknown [id number] 2.16.840.1.576311.3.579. 2.462 Unknown [id number] 2.16.840.1.053017.3.579. 2.462 Unknown [id number] 2.840.1.933809.3.579. 2.462 Unknown [id number] 2.840.1.581281.3.579. 2.462 Unknown [id number] 2.16840.1.291913.3.579. 2.462 Unknown [id number] 2.840.1.285259.3.579. 2.462 Unknown [id number] 2.840.1.809750.3.579. 2.462 Unknown [id number] 2.840.1.812766.3.579. 2.462 Unknown [id number] 2.840.1.016867.3.579. 2.462 Unknown [id number] 2.840.1.301714.3.579. 2.462 Unknown [id number] 2.840.1.239972.3.579. 2.462 Unknown [id number] .840.1.024812.3.579. 2.462 Unknown [id number] 2.840.1.875732.3.579. 2.462 Unknown [id number] 2.840.1.710988.3.579. 2.462 Unknown [id number] 2.840.1.970399.3.579. 2.462 Unknown [id number] .840.1.848486.3.579. 2.462 Unknown [id number] .840.1.504131.3.579. 2.462 Unknown [id number] 2.840.1.047444.3.579. 2.462 Unknown [id number] 2.840.1.627494.3.579. 2.462 Unknown [id number] 2.840.1.578717.3.579. 2.462 Unknown [id number] 2.16.840.1.495846.3.579. 2.462 Unknown [id number] 2.16.840.1.226729.3.579. 2.462 Unknown [id number] 2.16.840.1.908045.3.579. 2.462 Unknown [id number] 2.16.840.1.942221.3.579. 2.462 Unknown [id number] 2.16.840.1.344497.3.579. 2.462 Unknown [id number] 2.16.840.1.117891.3.579. 2.462 Social History Date Type Detail Facility Start: 05-23-2018 End: 05-19-2019 Tobacco smoking status NEIS Former smoker [facility] Work Phone: History of tobacco use Cigar Smoker [employer] [facility] Work Phone: Start: 05-19-2019 End: 08-13-2023 Cigarettes smoked current (pack per day) - Reported [facility] Work Phone: Start: 05-19-2019 End: 08-13-2023 Alcohol intake Current non-drinker of alcohol (finding) [facility] Work Phone: Start: 12-03-2018 History SDOH Physica l Activity DPW 7 [employer] [facility] Work Phone: Start: 12-03-2018 History SDOH Physica l Activity MPS 9 [facility] Work Phone: Start: 12-03-2018 End: 10-31-2021 History SDOH Stress 1 [facility] [facility] Work Phone: Start: 12-03-2018 History SDOH Financial 5 [facility] Work Phone: Start: 12-03-2018 History SDOH Transpo rt Med 2 [employer] [facility] Work Phone: Start: 1950 Sex Assigned At Not on file [facility] Work Phone: Start: 08-13-2012 End: 11-13-2019 Tobacco smoking status NEIS Never smoker [facility] Start: 05-23-2018 End: 11-13-2019 Tobacco use and exposure Never used [facility] Start: 11-13-2019 History SDOH Alcohol Std Drinks 98 [facility] Start: 10-11-2021 End: 02-15-2022 Exposure to SARS-CoV-2 (event) Not sure [facility] Start: 1950 Sex Assigned At Male [facility] History of tobacco use Current smoker [facility] Work Phone: History of tobacco use Cigarette Smoker S [facility] Work Phone: Start: 10-31-2021 End: 08-13-2023 Tobacco use panel [facility] Tobacco smoking stat us NHIS Unknown if ever smoked [facility] Work Phone: Start: 07-11-2024 End: 08-21-2024 Sex Male (finding) [facility] NEGATED: Highlighted row - - [facility] Work Phone: Medical Equipment Procedure Code Equipment Code Equipment Origin al Text Equipment Identifier Dates Kit Bactiseal Woodard maria guadalupe Silicone Barium Catheter Shunt Sterile - [id number] Start: 06-08-2021 Catheter Bactise al 14cm External Drainage Csf Sterile Latex Free - [id number] Start: 08-05-2021 Valve Certas Shannon nt Inline - [id number] Start: 06-08-2021 Valve Certas Shannon nt Inline - [id number] Start: 08-05-2021 Valve Certas Shannon nt Inline - [id number] Start: 08-09-2021 Goals Date Patient Goal [...] status health issues are not documented Disease [facility] Work Phone: Mental Status Date Assessment Result Facility NEGATED: Highlighted row Cognitive function [Interpretation] Cognitive status health issues are not documented Disease [facility] Work Phone: Clinical Notes 05-31-2021 [...] Hydrocephalus, adult (CMS/HCC) (HCC) Kidney stone Neuropathy HAND ENDBAND CUTTER (ventriculoperitoneal) shunt status Past Surgical History: Procedure [...] 09/13/23 12:05 PM documented in this encounter [facility] 08-31-2023 Note S: Shanthi from [facility] spoke with CAC nurse regarding voiding trial [...] Protocols used: Information Only Call - No Akfzwn-GGIOF-ACCHI [facility] 08-31-2023 Telephone encounter Note S: Shanthi from [facility] spoke with CAC nurse regarding voiding trial [...] Protocols used: Information Only Call - No Djhiea-DZVGR-IP [facility] 08-31-2023 Miscellaneous Notes S: Shanthi from [facility] spoke with CAC nurse regarding voiding trial [...] Protocols used: Information Only Call - No [id number]-MPADE-PF documented in this encounter [facility] 08-29-2023 Telephone encounter Note Lm on daughters to advise them to call the number for the product introduction manager to get clarification, and to call back with further questions [facility] 08-29-2023 Miscellaneous Notes Lm on greg vm to advise them to call the number for the product introduction manager to get clarification, and to call back with further questions Yes, they will need to call the number given to them. Please advise Name of caller: Shanthi Contact phone number: [phone] Relationship to Patient: patient Provider: MD Quinn Practice: [facility] Chief Complaint/Reason for Call: Shanthi called [...] to reach out to call Maury Cedeño Roofing Sales Representative at [facility] [phone] to get clarifications. TEA did reach back out to [facility] and advised and provider Maury's #. Please advise Best time of day caller can be reached: Any Patient advised that office/PCP has 24-48 business hours to return their call: N/A documented in this encounter [facility] 08-27-2023 Telephone encounter Note Yes, they will need to call the number given to them. [facility] 08-27-2023 Telephone encounter Note Please advise [facility] 08-21-2023 Telephone encounter Note Name of caller: Shanthi Contact phone number: [phone] Relationship to Patient: patient Provider: MD Quinn Practice: [facility] Chief Complaint/Reason for Call: [facility] called in to see if Pt would need to come by cot for his CT appt due to Pt being Boaz. CAC did reach out to office and was advised to reach out to Central Scheduling. CAC did reach out to and was advised to let [facility] know that she would need to reach out to call Maury Cedeño Roofing Sales Representative at [facility] [phone] to get clarifications. CAC did reach back out to [facility] and advised and provider Maury's #. Please advise Best time of day caller can be reached: Any Patient advised that office/PCP has 24-48 business hours to return their call: N/A [facility] 08-13-2023 History of Present illness Narrative [...] Hydrocephalus, adult (CMS/HCC) (HCC) Kidney stone Neuropathy HAND ENDBAND CUTTER (ventriculoperitoneal) shunt status Past Surgical History: Past [...] AM documented in this encounter [facility] 06-25-2023 [facility]phone [facility] 07/10/23 [place] has to be made further out, pt being transported by cot. Changed appt to 08/13/23 per [facility] only avail time for transport, first avail with DR Buck at 10:00 AM. [facility] 06-25-2023 Miscellaneous Notes [facility] called in stating appt scheduled 07/10/23 [place] has to be made further out, pt being transported by cot. Changed appt to 08/13/23 per [facility] only avail time for transport, first avail with DR Buck at 10:00 AM. documented in this encounter [facility] 12-22-2021 Hospital Discharge instructions SANIA Lou - 12/22/2021 2:32 AM EDT Please take medication as prescribed Please follow up with your Physicians as instructed in this discharge paperwork Thank you for choosing [facility] I appreciate your patience Please [...] abnormality and previous indwelling tubing history of HAND ENDBAND CUTTER shunt ? #?Bilateral lower extremity wounds-wound care [...] neurologist. Patient will be transferred to the care home and his Coumadin was continued, dosing instructions were given. Wound care was given for his lower extremity wounds. Consults: neurology, vascular surgery, gastroenterology Discharge Instructions: Diet: No diet orders on file Activity: as tolerated Disposition: Patient discharged in stable condition to care home . Greater than 30 minutes spent [...] Your Medications These medications were sent to [facility] [address] [place] [address] [id number] [facility] - P [phone] - F [phone] [facility] [id number] ? levETIRAcetam 750 MG tablet ? warfarin 6 MG tablet Recommended Follow-up: No follow-up provider specified. Complexity of Follow up: [] Moderate Complexity: follow up within 7-14 calendar days (21028) [x] Severe Complexity: follow up within 7 calendar days (45891) Follow up Testing, Pending results or Referrals [...] fatigue or (more content not included)... [facility] 10-29-2021 Hospital Discharge instructions Fabi Subramanian RN [...] Information Primary Emergency Contact: Triny Damon Address: [address] [place] [address] [place], [place] [address] [place] [address] Relation: Brother/Sister Secondary Emergency Contact: Melissa Sifuentes Mobile Relation: Child Preferred language: Gambian Past Surgical History: Past Surgical History: Procedure Laterality Date BRAIN SURGERY CHOLECYSTECTOMY COLONOSCOPY HERNIA REPAIR Immunization History: Immunization History Administered Date(s) Administered Influenza Virus Vaccine 02/08/2015 Influenza, High Dose (Fluzone 65 yrs and older) 01/25/2018, 03/04/2019 Influenza, Quadv, IM, (6 mo and older Fluzone, Flulaval, Fluarix and 3 yrs and older Afluria) 02/24/2016, 02/14/2017 Pneumococcal Conjugate 13-valent ([id number]) 09/22/2016 Pneumococcal Conjugate Vaccine 02/04/2013 Pneumococcal Polysaccharide ([id number]) 12/03/2018 Tdap (Boostrix, Adacel) 09/22/2016 Active Problems: Patient Active Problem List Diagnosis Code Flank pain, acute R10.9 Night muscle spasms M62.838 Chronic fatigue R53.82 Hydrocephalus ([facility]) G91.9 Neuropathy G62.9 Erectile dysfunction N52.9 Fluid retention in tissues R60.9 Hyperlipidemia E78.5 Morbidly obese ([facility]) E66.01 Leg wound, left S81.802A DVT, lower extremity, recurrent, unspecified laterality ([facility]) I82.409 Moderate malnutrition ([facility]) E44.0 History of seizures Z87.898 [...] Dependent Dressing Dependent Toileting Dependent Feeding Dependent Student Ambassador Dependent Med Delivery whole in [facility] Wound Care Documentation and Therapy: Wound [...] Q4H prn SOB Oxygen Therapy: {Therapy; copd oxygen:52411} Ventilator: { CC Vent List:[id number]} Rehab Therapies: {THERAPEUTIC INTERVENTION:0969701851} Weight Bearing Status/Restrictions: Weight Bearing - Patient was bedbound in hospital Other Medical Equipment (for information only, NOT a DME order): wheelchair, hospital bed, and Boaz Other Treatments: Patient's personal belongings (please select all that are sent with patient): {[facility] DME Belongings:299510139} RN SIGNATURE: CASE MANAGEMENT/SOCIAL WORK SECTION Inpatient Status Date: Readmission Risk Assessment Score: Readmission Risk Risk of Unplanned Readmission: 11 Discharging to Facility/ Agency Name: Address: Phone: Fax: Dialysis Facility (if applicable) Name: Address: Dialysis Schedule: Phone: Fax: Practice Specialist/Scheduling Analyst signature: {Esignature:[id number]} PHYSICIAN SECTION Prognosis: Fair Condition at Discharge: [...] the diagnosis listed and that he requires [facility]dc Facility for greater than 30 days. Update Admission H&P: No change in H&P PHYSICIAN SIGNATURE: documented in this encounter [facility] Work Phone: 10-29-2021 History of Present illness Narrative [facility] Anticoagulation Management Service ([facility]) Inpatient Warfarin Consult HPI: Andrew Sifuentes is a 71 y.o. 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 Past Medical History: Diagnosis Date ED (erectile dysfunction) Hemorrhoids Hydrocephalus, adult (HCC) Kidney stone Neuropathy HAND ENDBAND CUTTER (ventriculoperitoneal) shunt status Patient is newly referred to the [facility] clinic for warfarin management. Pt was [...] [facility] warfarin booklet, if appropriate. Vimal Oropeza RP, PharmD [facility] Consult Service is available daily [phone]. Please search for covering pharmacist name via Lecture[employer] or Groups --> Pharmacy --> Anti-Coagulation Consult Pharmacist (on 3rd page). If no response via [employer], please page [phone]. Patient seen and chart reviewed. Afebrile. Adequate oxygenation on room air. Baseline mentation. Exam stable X 5 systems. Hgb 11.0 WBC 10.0 K Platelets 344 K Creatinine 0.71 GFR > 90 cc/min. NSE 20.8 with hemolysis. PT 30.8 INR 3.1 Conversion to Warfarin has been completed. APS w/u pending. Discussed with patient's staff technologist. Will continue to monitor. Total visit time > 35 minutes. Neurology Attending Progress Note SUBJECTIVE: No issues overnight. Care discussed with nursing staff/patient's medical team MRI brain reported nothing acute. Assessment and Plan: 71 yr M with PMH obstructive hydrocephalus s/p HAND ENDBAND CUTTER shunt in 1987, needing multiple revisions and [...] normal limits and both old and new HAND ENDBAND CUTTER shunt tubing noted. At present patient is awake, follows commands, was able to tell his name, and that he was in hospital but not oriented to time. Per documentation patient had NCSE in May 2021, was on Vimpat, but it was discontinued as there was no evidence of recurrent seizures in july 2021 by Neurology at [facility], per daughter patient was on Dilantin for 31 yrs. Per daughter patient had seizures in the past and also felt he had staring episodes 10/26/2021 morning. Per daughter patient [place] been [place] bed bound in [place] since May 2021 but prior to that was independent Impressions: H/O hydrocephalus H/O seizure, H/O stroke Acute DVT H/O PE Plan: -MRI brain w/o contrast nothing acute -CT head done during this admission reported no hydrocephalus, ventricles within normal limits and both old and new HAND ENDBAND CUTTER shunt tubing noted -EEG mild to moderate slow, no seizures reported -Labs reviewed -Hydrocephalus management per Neurosurgery. At present patient does not have hydrocephalus on CT head done this admission. No Neurosurgery services available as inpatient in [facility]. Patient can follow up with Neurosurgery as outpatient and if ends up needing inpatient neurosurgery requirement then may need to be transferred to [facility]. -No clear clinical signs of ventriculitis. Defer evaluation to primary medical team/ID as deemed necessary. -Discussed with daughter in detail on . She was concerned that patient has had h/o seizures, and he has been taken off seizure medication, per note documentation patient had NCSE in May 2021 when he was admitted to [facility]. Per daughter she would want [...] is no in house Neurology coverage at [facility] over the weekend, primary hospitalist team to contact precision honing machine operator Neurology at [facility] for any weekend neurological issues related to the patient and if need to discuss any neurological test results/findings. Other deal in house Neurology coverage will be available from Sunday at [facility] and please call precision honing machine operator Neurology back on Sunday if need further assistance. This note has been generated using [employer] dictation software. It may contain incorrect words, punctuation's and spellings that were not noted in the review of the note prior to signing. This note has been generated using [employer] dictation software. It may contain incorrect words, [...] 26 AST 24 BILITOT 0.4 LABALBU 3.7 @BRIEFLAB([facility]) ABGs: )No results for input(s): PH, PO2, [...] Radiology ACCESSION EXAM DATE/TIME PROCEDURE ORDERING PROVIDER [id number] 10/21/2021 15:30 EDT CR Calcaneus 2+ Views [id number] -SHRUTHI MALIK Left CPT code 03248 Reason For Exam (CR Calcaneus 2+ Views [...] Tomography ACCESSION EXAM DATE/TIME PROCEDURE ORDERING PROVIDER [id number] 10/26/2021 11:[address] Head or Brain w/o JUNIE PINEDA, SARINA Contrast CPT code 24375 Reason For Exam (CT Head or Brain w/o Contrast) hydrocephalus. thank you Report CLINICAL INFORMATION: Hydrocephalus. Shunt. 3 mm axial cuts through the head are obtained without IV contrast. The examination is compared to a previous study dated 06/29/2014. FINDINGS: Old HAND ENDBAND CUTTER shunt tubing is noted bilaterally. The new [...] are clear. IMPRESSION: 1. Old and new HAND ENDBAND CUTTER shunt tubing. 2. No hydrocephalus. 3. Atrophy and evidence of small-vessel ischemic disease. 4. No CT evidence of an acute intracranial process. Report Dictated on --- Final --- Dictating Physician: MD SOLANO JEFFREY Signed Date and Time: 10/26/2021 11:42 am Signed by: MD SOLANO JEFFREY Transcribed Date and Time: 10/26/2021 11:43 MRI ABDOMEN WO CONTRAST Result Date: 10/23/2021 [id number] Imaging ACCESSION EXAM DATE/TIME PROCEDURE ORDERING PROVIDER [id number] 10/23/2021 11:08 EDT MRI Abdomen w/o Contrast WING SRIVASTAVA CPT code 59790 Reason For Exam (MRI Abdomen w/o Contrast) [...] Medicine ACCESSION EXAM DATE/TIME PROCEDURE ORDERING PROVIDER [id number] 10/21/2021 07:55 EDT NM Pulmonary Perfusion [id number] MAY BOGGS w/ Vent Aerosol CPT code 23882 A9567 Reason For Exam (NM Pulmonary Perfusion [...] Indices Extremity Bilateral Result Date: 10/22/2021 [facility] --- Ankle Brachial Index Report Patient DO GurpreetB: 1950 Study 10/21/2021 Name: Andrew Gonzalez (71yrs) Date: Age: 71 Account: [id number] Gender: M Loc: 444W BP: Ordering Physician: Shruthi Malik Garage Door Opener Installer: Rody Cross RDMS, RVT Interpreting Physician: Carina Call --- Location: [facility] --- Indications: Foot wounds. Originally ordered as a full PVR. Ordering SERVER SERVICE ASSISTANT had to modify the order to [...] supine position. Images were obtained using a [employer] vascular ultrasound machine. --- Arterial pressure indices: [...] BILATERAL VENOUS DUPLEX Result Date: 10/21/2021 [facility] --- Lower Extremity Venous Duplex Report Patient Gurpreet, : 1950 Study 10/21/2021 Name: Andrew Gonzalez (71yrs) Date: Age: 71 Account: [id number] Gender: M Loc: 444 BP: Ordering Physician: May Cash Garage Door Opener Installer: Rody Cross RDMS, RVT Interpreting Physician: Carina [...] supine position. Images were obtained using a [employer] vascular ultrasound machine. --- Venous flow and [...] Radiology ACCESSION EXAM DATE/TIME PROCEDURE ORDERING PROVIDER [id number] 10/21/2021 08:16 EDT CR Chest 1 View Frontal [id number] CPT code 46903 Reason For Exam (CR Chest 1 View [...] Tomography ACCESSION EXAM DATE/TIME PROCEDURE ORDERING PROVIDER [id number] 10/22/2021 13:[address] Abdomen/Pelvis (No SRIVASTAVA, WING PO, No IV) CPT code 37110 Reason For Exam (CT Abdomen/Pelvis (No PO, [...] Result Date: 10/27/2021 [id number] Resonance Imaging ACCESSION EXAM DATE/TIME PROCEDURE ORDERING PROVIDER [id number] 10/27/2021 13:14 EDT MRI Brain w/o Contrast UNASSIGNED, UNASSIGNED CPT code 70874 Reason For Exam (MRI Brain w/o Contrast) stroke Patient has HAND ENDBAND CUTTER shunt in place, please follow Radiology protocol [...] included. Hospitalist Progress Note 10/28/2021 11:37 AM [phone]: Please page nc @ [phone] for patient care issues. [phone]: Please page bellows charger assembler for any issues@ night Subjective: Admit Date: [...] times per day LABS: CBC: Recent Labs 06/24/22 0418 WBC 10.0 RBC 3.94* HGB 11.0* [...] abnormality and previous indwelling tubing history of HAND ENDBAND CUTTER shunt # Bilateral lower extremity wounds-wound care [...] Services This report was created using the App in the Air Speaking voice-activated system. Despite prompt dictation and careful editorial review, there may be subtle contextual errors in this report, due to misrecognition of the spoken word. Speech Language Pathology Facility/Department: [facility] MED SURG Dysphagia Treatment Note [...] and gloves were worn throughout this session. [facility] Anticoagulation Management Service ([facility]) Inpatient Warfarin Consult HPI: Andrew Sifuentes is a 71 y.o. 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 Past Medical History: Diagnosis Date ED (erectile dysfunction) Hemorrhoids Hydrocephalus, adult (HCC) Kidney stone Neuropathy HAND ENDBAND CUTTER (ventriculoperitoneal) shunt status Patient is newly referred to the [facility] clinic for warfarin management. Pt was [...] PharmD IRV[facility] Consult Service is available daily [phone]. Please search for covering pharmacist name via LectureTools or Groups --> Pharmacy --> Anti-Coagulation Consult Pharmacist (on 3rd page). If no response via Lecture[employer], please page [phone]. Follow up b/l foot wounds. No new [...] yr M with PMH obstructive hydrocephalus s/p HAND ENDBAND CUTTER shunt in 1987, needing multiple revisions and [...] normal limits and both old and new HAND ENDBAND CUTTER shunt tubing noted. At present patient is awake, follows commands, was able to tell his name, and that he was in hospital but not oriented to time. Per documentation patient had NCSE in May 2021, was on Vimpat, but it was discontinued as there was no evidence of recurrent seizures in july 2021 by Neurology at [facility], per daughter patient was on Dilantin for 31 yrs. Per daughter patient had seizures in the past and also felt he had staring episodes 10/26/2021 morning. Per daughter patient [place] bound [place] since [place] 2021 but prior to that was independent Impressions: H/O hydrocephalus H/O seizure, H/O stroke Acute DVT H/O PE Plan: -MRI brain w/o contrast. Per daughter she would like MRI brain done to evaluate for strokes -CT head done during this admission today reported no hydrocephalus, ventricles within normal limits and both old and new HAND ENDBAND CUTTER shunt tubing noted -EEG mild to moderate slow, no seizures reported -Labs reviewed -Hydrocephalus management per Neurosurgery. At present patient does not have hydrocephalus on CT head done this admission. No Neurosurgery services available as inpatient in [facility]. Patient can follow up with Neurosurgery as outpatient and if ends up needing inpatient neurosurgery requirement then may need to be transferred to [facility]. -No clear clinical signs of ventriculitis. Defer evaluation to primary medical team/ID as deemed necessary. -Discussed with daughter in detail on . She was concerned that patient has had h/o seizures, and he has been taken off seizure medication, per note documentation patient had NCSE in May 2021 when he was admitted to [facility]. Per daughter she would want [...] interim. This note has been generated using [employer] dictation software. It may contain incorrect words, punctuation's and spellings that were not noted in the review of the note prior to signing. This note has been generated using [employer] dictation software. It may contain incorrect words, [...] LABALBU, AMYLASE, LIPASE in the last 72 hours.@BRIEFLAB([facility]) ABGs: )No results for input(s): PH, PO2, [...] Radiology ACCESSION EXAM DATE/TIME PROCEDURE ORDERING PROVIDER [id number] 10/21/2021 15:30 EDT CR Calcaneus 2+ Views [id number] -SHRUTHI MALIK Left CPT code 81919 Reason For Exam (CR Calcaneus 2+ Views [...] Result Date: 10/26/2021 [id number] Tomography ACCESSION EXAM DATE/TIME PROCEDURE ORDERING PROVIDER [id number] 10/26/2021 11:[address] Head or Brain w/o JUNIE PINEDA ALLISON Contrast CPT code 50331 Reason For Exam (CT Head or Brain w/o Contrast) hydrocephalus. thank you Report CLINICAL INFORMATION: Hydrocephalus. Shunt. 3 mm axial cuts through the head are obtained without IV contrast. The examination is compared to a previous study dated 06/29/2014. FINDINGS: Old HAND ENDBAND CUTTER shunt tubing is noted bilaterally. The new [...] are clear. IMPRESSION: 1. Old and new HAND ENDBAND CUTTER shunt tubing. 2. No hydrocephalus. 3. Atrophy [...] Imaging ACCESSION EXAM DATE/TIME PROCEDURE ORDERING PROVIDER [id number] 10/23/2021 11:08 EDT MRI Abdomen w/o Contrast SRIVASTAVAWING CPT code 76222 Reason For Exam (MRI Abdomen w/o Contrast) [...] Medicine ACCESSION EXAM DATE/TIME PROCEDURE ORDERING PROVIDER [id number] 10/21/2021 07:55 EDT NM Pulmonary Perfusion [id number] -MAY CASH w/ Vent Aerosol CPT code 78326 A9567 Reason For Exam (NM Pulmonary Perfusion [...] Indices Extremity Bilateral Result Date: 10/22/2021 [facility] --- Ankle Brachial Index Report Patient DO GurpreetB: 1950 Study 10/21/2021 Name: Andrew Gonzalez (71yrs) Date: Age: 71 Account: [id number] Gender: M Loc: 444W BP: Ordering Physician: Shruthi Malik Garage Door Opener Installer: Rody Cross RDMS, RVT Interpreting Physician: Carina Call --- Location: [facility] --- Indications: Foot wounds. Originally ordered as a full PVR. Ordering SERVER SERVICE ASSISTANT had to modify the order to [...] supine position. Images were obtained using a [employer] vascular ultrasound machine. --- Arterial pressure indices: [...] BILATERAL VENOUS DUPLEX Result Date: 10/21/2021 [facility] --- Lower Extremity Venous Duplex Report Patient DO GurpreetB: 1950 Study 10/21/2021 Name: Andrew Gonzalez (71yrs) Date: Age: 71 Account: [id number] Gender: M Loc: 444 BP: Ordering Physician: May Cash Garage Door Opener Installer: Rody Cross RDMS, RVT Interpreting Physician: Carina [...] supine position. Images were obtained using a [employer] vascular ultrasound machine. --- Venous flow and [...] Radiology ACCESSION EXAM DATE/TIME PROCEDURE ORDERING PROVIDER [id number] 10/21/2021 08:16 EDT CR Chest 1 View Frontal [id number] MAY BOGGS CPT code 94182 Reason For Exam (CR Chest 1 View [...] Result Date: 10/22/2021 [id number] Computed Tomography ACCESSION EXAM DATE/TIME PROCEDURE ORDERING PROVIDER [id number] 10/22/2021 13:[address] Abdomen/Pelvis (No SRIVASTAVA, WING PO, No IV) CPT code 99248 Reason For Exam (CT Abdomen/Pelvis (No PO, [...] 12:48 PM Consults Speech Language Pathology Facility/Department: [facility] MED SURG Dysphagia Treatment Note NAME: Andrew Sifuentes DOB: 1950 Allergies: Allergies Allergen Reactions Alcohol Morphine [...] reactivity and state change, indicative of a equx-iq-xbxnykxm diffuse encephalopathy of nonspecific etiology. There are [...] diet/cut up. NEVILLE Jones M.A.[facility]/ACCOUNT MAINTENANCE REPRESENTATIVE Time session ended: 1156 Total session minutes: 23 Images from the original note were not included. Hospitalist Progress Note 10/27/2021 10:40 AM [phone]: Please page nc @ [phone] for patient care issues. [phone]: Please page bellows charger assembler for any issues@ night Subjective: Admit Date: [...] Services This report was created using the App in the Air Speaking voice-activated system. Despite prompt dictation and careful editorial review, there may be subtle contextual errors in this report, due to misrecognition of the spoken word. [facility] Anticoagulation Management Service ([facility]) Inpatient Warfarin Consult HPI: Andrew Sifuentes is a 71 y.o. 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 Past Medical History: Diagnosis Date ED (erectile dysfunction) Hemorrhoids Hydrocephalus, adult (HCC) Kidney stone Neuropathy HAND ENDBAND CUTTER (ventriculoperitoneal) shunt status Patient is newly referred to the [facility] clinic for warfarin management. Pt was [...] drug interactions and adjust dose accordingly. 3. [facility] will manage while inpatient and sign off at discharge. Patient resides in a SNF. 4. Will provide warfarin education including [facility] warfarin booklet, if appropriate. Thank you for this consult Brionna Le, PharmD candidate Josie Gupta RP, PharmD [facility] Consult Service is available daily [phone]. Please search for covering pharmacist name via LectureTools or Groups --> Pharmacy --> Anti-Coagulation Consult Pharmacist (on 3rd page). If no response via [employer], please page [phone]. I cleaned under patient's finger nails with [...] status with Warfarin. Discussed with patient's staff technologist. Will continue to monitor. Total visit time [...] if concern Hydrocephalus Chronic WOODARD's - Revised HAND ENDBAND CUTTER shunt - daughter requested that pt have CT / MRI of brain and neurology be consulted, this was done. - "Hydrocephalus management per Neurosurgery. At present patient does not have hydrocephalus on CT head done this morning. No Neurosurgery services available as inpatient in [facility]. Patient can follow up with Neurosurgery as outpatient and if ends up needing inpatient neurosurgery requirement then may need to be transferred to [facility]. " Seizure history, unspecified - daughter requested [...] get report from nursing. Continue wound care. [facility] Anticoagulation Management Service ([facility]) Inpatient Warfarin Consult HPI: Andrew Sifuentes is a 71 y.o. 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 Past Medical History: Diagnosis Date ED (erectile dysfunction) Hemorrhoids Hydrocephalus, adult (HCC) Kidney stone Neuropathy HAND ENDBAND CUTTER (ventriculoperitoneal) shunt status Patient is newly referred to the [facility] clinic for warfarin management. Pt was [...] PharmD [facility] Consult Service is available daily [phone]. Please search for covering pharmacist name via LectureTools or Groups --> Pharmacy --> Anti-Coagulation Consult Pharmacist (on 3rd page). If no response via [employer], please page [phone]. Moon daughter stated that any of patient's family can call and obtain an update on patient's status. Speech Language Pathology Facility/Department: [facility] MED SURG CLINICAL BEDSIDE SWALLOW [...] a small bore straw. Additionally discussed with ACCOUNT MAINTENANCE REPRESENTATIVE, agreeable to assess tomorrow. Recent Chest Xray/CT [...] and liquids between bites. Treatment Plan Requires ACCOUNT MAINTENANCE REPRESENTATIVE Intervention: Yes Duration of Treatment: 2 weeks [...] Patient;RN;Family member Family member consulted: mariam Mustafa Patient Education: Swallowing strategies. Patient Education Response: Verbalizes understanding;Needs reinforcement Therapy Time ACCOUNT MAINTENANCE REPRESENTATIVE Individual Minutes Time In: 826 Time Out: 0853 Minutes: 26 NEVILLE Jones 10/26/2021 9:20 AM Comprehensive Nutrition Assessment Type and Reason for Visit: Initial (DT referral for wounds) Nutrition Recommendations/Plan: 1. Recommend to continue: Easy to Chew diet with Thin Liquids as currently ordered and safe for patient to participate in. Discussed with: RN, SERVER SERVICE ASSISTANT, and ACCOUNT MAINTENANCE REPRESENTATIVE. ACCOUNT MAINTENANCE REPRESENTATIVE to assess tomorrow, best diet and liquid [...] Malnutrition Assessment: Malnutrition Status: Moderate malnutrition (10/25/21 8153) Context: Chronic Illness Findings of the 6 [...] & deltoids),Scapula (trapezius) Fluid Accumulation: Mild Extremities Priming Powder Premix Blender Strength: Not Performed Nutrition Assessment: 71 year [...] a small bore straw. Additionally discussed with ACCOUNT MAINTENANCE REPRESENTATIVE, agreeable to assess tomorrow. Nutrition Related Findings: [...] Anthropometric Measures: Height: 5' 7.01" (170.2 cm) Bandon Body Weight (IBW): 148 lbs (67 kg) Admission Body Weight: 240 lb (108.9 kg) (stated 10/21/21) Current Body Weight: 205 lb 4 oz (93.1 kg) (10/25/21), 138.7 % IBW. Weight Source: Bed Scale Current BMI (kg/m2): 32.1 Usual Body Weight: 272 lb 11.3 oz (123.7 kg) (05/30/21 and 232.5# noted 08/14/21 at [facility] per EMR Review) % Weight Change (Calculated): -24.7 BMI Categories: Obese Class 1 (BMI 30.0-34.9) Estimated Daily Nutrient Needs: Energy Requirements Based On: Kcal/kg Weight Used for Energy Requirements: Bandon (67.15 kg) Energy (kcal/day): 1215-9207 (27-32 kcal/kg IBW) --> increased need d/t wounds Weight Used for Protein Requirements: Bandon (67.15 kg) Protein (g/day): 67-101 (1.0-1.5 g protein/kg IBW) Method Used for Fluid Requirements: Other (Comment) Fluid (ml/day): 2946-5445 mL daily or per MD Nutrition Diagnosis: [...] Plan of Care discussed with: Patient, RN, SERVER SERVICE ASSISTANT Edwin Goals: Goals: other (specify) Specify Other [...] to determine Puja Almanza RD, LD Contact: [phone] Or Via LectureTools Hematology/Oncology Attending Progress Note SUBJECTIVE: Patient seen [...] IRON, TIBC, FERRITIN No results found for: [id number] No results found for: FOLATE PT 15.6 INR 1.5 CA 19 - 9 is 17 Protein S 138% Protein C 186% ASSESSMENT AND PLAN GI input appreciated. Patient continues with subtherapeutic INR. GI input appreciated. Discussed with patient's staff technologist. Will continue monitor. Total visit time > 35 minutes. [facility] Anticoagulation Management Service ([facility]) Inpatient Warfarin Consult HPI: Andrew Sifuentes is a 71 y.o. 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 Past Medical History: Diagnosis Date ED (erectile dysfunction) Hemorrhoids Hydrocephalus, adult (HCC) Kidney stone Neuropathy HAND ENDBAND CUTTER (ventriculoperitoneal) shunt status Patient is newly referred to the [facility] clinic for warfarin management. Pt was [...] drug interactions and adjust dose accordingly. 3. [facility] will manage while inpatient and sign off at discharge. Patient resides in a SNF. 4. Will provide warfarin education including [facility] warfarin booklet, if appropriate. Thank you for this consult Brionna Le, PharmD candidate Josie Gupta RPh, PharmD [facility] Consult Service is available daily [phone]. Please search for covering pharmacist name via LectureTools or Groups --> Pharmacy --> Anti-Coagulation Consult Pharmacist (on 3rd page). If no response via LectureTools, please page [phone]. Progress Note 10/25/2021 9:36 AM Name: Andrew [...] if concern Hydrocephalus Chronic WOODARD's - Revised HAND ENDBAND CUTTER shunt DC planning - 10/25/21: INR subtherapeutic, [...] if concern Hydrocephalus Chronic WOODARD's - Revised HAND ENDBAND CUTTER shunt DC planning - Can be DC'd back to ECF once MRI done if no acute findings, MRI is done, defer to hem / onc on plan for that, awaiting chest PA with fluoro Patient seen and chart reviewed. Consult dictated. Will ask GI to assess concerning the etiology of liver lesions. Will continue to monitor. [facility] Anticoagulation Management Service ([facility]) Inpatient Warfarin Consult HPI: Andrew Sifuentes is a 71 y.o. 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 Past Medical History: Diagnosis Date ED (erectile dysfunction) Hemorrhoids Hydrocephalus, adult (HCC) Kidney stone Neuropathy HAND ENDBAND CUTTER (ventriculoperitoneal) shunt status Patient is newly referred to the [facility] clinic for warfarin management. Pt was [...] PharmD [facility] Consult Service is available daily [phone]. Please search for covering pharmacist name via LectureTools or Groups --> Pharmacy --> Anti-Coagulation Consult Pharmacist (on 3rd page). If no response via LectureTools, please page [phone]. Follow up foot wounds Patient is more alert this morning. Waffle boots are on Ulcer left heel ulcer right foot Foot drop PE, chart reviewed. Patient relates that he does not walk at home. c ontinue wound care. Images from the original note were not included. Hospitalist Progress Note 10/23/2021 1:47 PM [phone]: Please page me ([phone]) or perfect serve me for patient care issues. [phone]: Please page IMS night Hospitalist for any [...] if concern Hydrocephalus Chronic WOODARD's - Revised HAND ENDBAND CUTTER shunt DC planning - Can be DC'd [...] Hemorrhoids Hydrocephalus, adult (HCC) Kidney stone Neuropathy HAND ENDBAND CUTTER (ventriculoperitoneal) shunt status Medications: sodium chloride warfarin [...] the last 72 hours. PT/INR: Recent Labs 10/21/210 10/22/21 0744 10/23/21 0458 PROTIME 11.5 11.8 [...] of Hospitalist Medicine Inpatient Medical Services PAGER: [phone] Nutrition rescreen completed. Pt referred to RD for foot ulcers. Occupational Therapy Facility/Department: [facility] MED SURG Occupational Therapy Initial Assessment Name: Andrew Sifuentes : 1950 Date of Service: 10/23/2021 OT eval and treat orders received. Chart reviewed. Per notes pt from [facility], is Boaz lift at baseline, non-ambulatory, and requires assist for all ADLs. Will d/c OT orders. Elizabeth Gutierrez OT Physical Therapy Facility/Department: [facility] MED SURG Physical Therapy Initial Assessment Name: Andrew Sifuentes : 1950 Date of Service: 10/23/2021 PT eval and treat orders received. Chart reviewed. Per notes pt from [facility], is Boaz rios at baseline, non-ambulatory. Will d/c PT orders. Lloyd Silva PT [facility] Anticoagulation Management Service ([facility]) Inpatient Warfarin Consult HPI: Andrew Sifuentes is a 71 y.o. 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 Past Medical History: Diagnosis Date ED (erectile dysfunction) Hemorrhoids Hydrocephalus, adult (HCC) Kidney stone Neuropathy HAND ENDBAND CUTTER (ventriculoperitoneal) shunt status Patient is newly referred to the [facility] clinic for warfarin management. Pt was [...] drug interactions and adjust dose accordingly. 3. [facility] will manage while inpatient and sign off at discharge. Patient resides in a SNF. 4. Will provide warfarin education including [facility] warfarin booklet, if appropriate. Thank you for this consult Lisa Forrest RP, PharmD [facility] Consult Service is available daily [phone]. Please search for covering pharmacist name via LectureTools or Groups --> Pharmacy --> Anti-Coagulation Consult Pharmacist (on 3rd page). If no response via PerfectServe, please page [phone]. Electronically signed by Lisa Forrest [facility] at 10/23/2021 8:37 AM EDT Department of Podiatry Attending Consult Note Reason for Consult: Wound care Requesting Physician: MD Shailesh CHIEF COMPLAINT: Foot wounds HISTORY OF PRESENT ILLNESS: The patient is a 71 y.o. male with b/l foot wounds. Patient is awake , but not answering questions. Past Medical History: Diagnosis Date ED (erectile dysfunction) Hemorrhoids Hydrocephalus, adult (HCC) Kidney stone Neuropathy HAND ENDBAND CUTTER (ventriculoperitoneal) shunt status Past Surgical History: Procedure [...] consulted. Will follow . Thank you. [facility] Respiratory Care Department Progress Note As part [...] included. Hospitalist Progress Note 10/22/2021 6:33 AM [phone]: Please page me ([phone]) or perfect serve me for patient care issues. [phone]: Please page IMS night Hospitalist for any issues. Subjective: Admit Date: 10/21/2021 PCP: MONIKA STALEY MD Room#: 793/1469 Admitting Synopsis: 71 y/o male presents from [...] consider MRI if concern Hydrocephalus - Revised HAND ENDBAND CUTTER shunt Interval History: No overnight issues. Denies [...] no cyanosis or edema and unable to stain remover BLE, this is old Musculoskeletal: Muscle [...] Hemorrhoids Hydrocephalus, adult (HCC) Kidney stone Neuropathy HAND ENDBAND CUTTER (ventriculoperitoneal) shunt status Medications: sodium chloride baclofen 10 mg Oral TID bumetanide 2 mg Oral Daily potassium chloride 20 mEq Oral Daily sodium chloride flush 5-40 mL IntraVENous 2 times per day enoxaparin 1 mg/kg SubCUTAneous BID ipratropium-albuterol 1 ampule Inhalation Q4H RI LABS: CBC: Recent Labs 10/21/21 0210 10/22/21 [...] of Hospitalist Medicine Inpatient Medical Services PAGER: [phone] Images from the original note were not included. Hospitalist Progress Note 10/21/2021 5:31 PM [phone]: Please page me ([phone]) or perfect serve me for patient care issues. [phone]: Please page [facility] night Hospitalist for any issues. Subjective: Admit Date: 10/21/2021 PCP: MONIKA STALEY MD Room#: 100/1469 Admitting Synopsis: 71 y/o male presents from [...] Will need chronic OAC Hydrocephalus - Revised HAND ENDBAND CUTTER shunt Interval History: No overnight issues. Denies [...] Hemorrhoids Hydrocephalus, adult (HCC) Kidney stone Neuropathy HAND ENDBAND CUTTER (ventriculoperitoneal) shunt status Medications: sodium chloride baclofen [...] of Hospitalist Medicine Inpatient Medical Services PAGER: [phone] Family member Triny, sister to patient, called back to the hospital stating that she was returning a call from a provider. Her phone number is [phone] to speak with whomever was attempting to reach out to her. documented in this encounter [facility] Work Phone: 10-17-2021 Miscellaneous Notes Mr. Sifuentes missed his hospital stay follow-up appointment wGarfield Lim today. Called to Reschedule. Could not get through. "Subscriber you have dialed not in service" - was the automated voice mail. Unable to leave . No other phone# available. Ramya Negro Wiper Blender [facility] Neurosurgery/Ortho Spine documented in this encounter [facility] 08-19-2021 Note [facility] 08-19-2021 Note [facility] 08-18-2021 Note [facility] 08-18-2021 Note [facility] 08-17-2021 Note [facility] 08-17-2021 Note [facility] 08-16-2021 Note [facility] 08-16-2021 Note HNO ID: [id number] Author: Katt Kelsey DO Service: Hospital Medicine Author Type: Physician Type: Plan of Care Filed: 08/16/2021 12:26 PM Note Text: Spoke with RN that line is a PICC. Katt Kelsey DO 08/16/2021 12:26 PM [facility] 08-16-2021 Note [facility] 08-16-2021 Note [facility] 08-15-2021 Note [facility] 08-15-2021 Note [facility] 08-15-2021 Note [facility] 08-14-2021 Note [facility] 08-14-2021 Note [facility] 08-13-2021 Note [facility] 08-13-2021 Note [facility] 08-13-2021 Note [facility] 08-13-2021 Note HNO ID: [id number] Author: Interface Note Service: ? Author Type: ? Type: Progress Notes Filed: 08/13/2021 3:10 AM Note Text: Epic Scheduled Downtime: 08/13/2021 1:08:47 AM to 08/13/2021 2:53:47 AM [facility] 08-12-2021 Note [facility] 08-12-2021 Note [facility] 08-12-2021 Note [facility] 08-11-2021 Note [facility] 08-11-2021 Note [facility] 08[facility]11-2021 Note [facility] 08-11-2021 Note [facility] 08-11-2021 Note [facility] 08-11-2021 Note [facility] 08-10-2021 Note [facility] 08-10-2021 Note [facility] 08-10-2021 Note [facility] 08-10-2021 Note [facility] 08-09-2021 Note HNO ID: [id number] Author: Shannon Brooks RN Service: ? Author Type: Registered Nurse Type: Nursing Progress Note Filed: 08/09/2021 7:33 PM Note Text: Report called to unit [facility] 08-09-2021 Note [facility] 08-09-2021 Note [facility] 08-09-2021 Note [facility] 08-08-2021 Note [facility] 08-08-2021 Note [facility] 08-08-2021 Note [facility] 08-07-2021 Note [facility] 08-07-2021 Note [facility] 08-07-2021 Note [facility] 08[facility]07-2021 Note [facility] 08-07-2021 Note [facility] 08-06-2021 Note [facility] 08-06-2021 Note [facility] 08-06-2021 Note [facility] 08-05-2021 Note [facility] 08-05-2021 Note [facility] 08-05-2021 Note [facility] 08-04-2021 Note [facility] 08-04-2021 Note [facility] 08-04-2021 Note [facility] 08-03-2021 Note [facility] 08-03-2021 Note [facility] 08-03-2021 Note [facility] 08-02-2021 Note [facility] 08-02-2021 Note [facility] 08-02-2021 Note [facility] 08-01-2021 Note [facility] 08-01-2021 Note [facility] 08[facility]01-2021 Note [facility] 08-01-2021 Note [facility] 07-31-2021 Note [facility] 07-31-2021 Note [facility] 07-30-2021 Note [facility] 07-30-2021 Note [facility] 07[facility]30-2021 Note [facility] 07-29-2021 Note [facility] 07-29-2021 Note [facility] 07-29-2021 Note [facility] 07-28-2021 Note [facility] 07-28-2021 Note [facility] 07-28-2021 Note [facility] 07-27-2021 Note [facility] 07-27-2021 Note [facility] 07[facility]27-2021 Note [facility] 07-26-2021 Note [facility] 07-26-2021 Note [facility] 07-26-2021 Note [facility] 07-26-2021 Note [facility] 07-26-2021 Note [facility] 07-25-2021 Note [facility] 07-25-2021 Note [facility] 07-25-2021 Note [facility] 07-25-2021 Note [facility] 07-24-2021 Note [facility] 07-24-2021 Note [facility] 07-24-2021 Note [facility] 07-23-2021 Note [facility] 07-23-2021 Note [facility] 07-23-2021 Note [facility] 07-23-[address] [facility] [facility] [facility] 07-22-[address] [facility] 07-22-[address] [facility] 07-22-[address] [facility] 07-21-[address] [facility] 07-21-[address] [facility] 07-21-[address] 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03-16-2022 [facility] 07-19-2021 [facility]03-15-2022 [facility]03-15-2022 [facility]03-14-2022 [facility]03-14-2022 [facility]03-13-2022 [facility]03-13-2022 [facility]03-12-2022 Note [facility]03-12-2022 [facility] 07-15-2021 [facility]03-11-2022 [facility]03-10-2022 [facility]03-10-2022 [facility]03-10-2022 [facility]03-09-2022 [facility]03-09-2022 [facility]03-09-2022 Note [facility]03-09-2022 [facility] 07-12-2021 [facility]03-08-2022 [facility]03-07-2022 [facility]03-07-2022 [facility]03-07-2022 [facility]03-07-2022 [facility]03-06-2022 [facility]03-06-2022 Note [facility]03-05-2022 [facility] 07-09-2021 [facility]03-05-2022 [facility]03-05-2022 [facility]03-05-2022 NoteHNO ID: [id number] Author: Lizette Valderrama RN Service: Nursing Author Type: Registered Nurse Type: Nursing Progress Note Filed: 07/09/2021 1:41 AM Note Text: Report called to [facility]03-04-2022 NoteHNO ID: [id number] Author: Lizette Valderrama RN Service: Nursing Author Type: Registered Nurse Type: Nursing Progress Note Filed: 07/08/2021 8:57 PM Note Text: [address]50 back to PACU [address] [place], [place] [address]303-04-2022 NoteHNO ID: [id number] Author: Sukhi Chery APRN.CNP Service: ? Author Type: Nurse Practitioner Type: Progress Notes Filed: 07/09/2021 6:46 PM Note Text: Connected Care Unit Progress Note Patient Name: Andrew Sifuentes Patient Facility: [facility] Admit Date 06/28/2021 Level of Care: Skilled [...] Dept Phone 07/21/2021 11:00 AM NICOLE LIM [phone] HPI: (Per Dr. Beltran) Andrew Sifuentes is being seen today for snf facility (SNF) admission AND management of weakness, tube feed, infected retroperitoneal infection and seizure. ? This is a 71 year old male who presents from [facility] with primary admitting diagnosis of Seizure, [...] CT brain concerning for hydrocephalus. Tip of HAND ENDBAND CUTTER shunt was found to be in the [...] slow to respond. Ordered to transfer to [facility] ED for evaluation of neurological and pulmonary [...] changes in co (more content not included)... [facility]03-04-2022 [facility]03-04-2022 [facility]03-02-2022 NoteHNO ID: [id number] Author: Sukhi Chery APRN.VICTORIANO Service: ? Author Type: Nurse Practitioner Type: Progress Notes Filed: 07/09/2021 6:20 PM Note Text: Connected Care Unit Progress Note Patient Name: Andrew Sifuentes Patient Facility: [facility] Admit Date 06/28/2021 Level of Care: Skilled [...] Dept Phone 07/21/2021 11:00 AM NICO[facility] LIM [phone] HPI: (Per Dr. Beltran) Andrew Sifuentes is being seen today for snf facility (SNF) admission AND management of weakness, tube feed, infected retroperitoneal infection and seizure. ? This is a 71 year old male who presents from [facility] with primary admitting diagnosis of Seizure, [...] CT brain concerning for hydrocephalus. Tip of HAND ENDBAND CUTTER shunt was found to be in the [...] uncontrolled pain exacerbations. Medications: Medications listed in [facility] during SNF admission may not be [...] Pharynx: Oropharynx is clear. (more content not included)...[facility]02-28-2022 NoteHNO ID: [id number] Author: Sukhi Chery APRN.CNP Service: ? Author Type: Nurse Practitioner Type: Progress Notes Filed: 07/09/2021 6:07 PM Note Text: Connected Care Unit Progress Note Patient Name: Andrew Sifuentes Patient Facility: [facility] Admit Date 06/28/2021 Level of Care: Skilled [...] but nursing notes it was drawn by dry sander as vancomycin was being infused; reordered trough - PICC Line Intact - No fevers or chills per patient or staff (R53.81) Debility - Certify therapies - Maintain high falls risk precautions - pt/staff verbalize understanding validated via teach back - Monitor safety awareness Appointments for Next 60 Days Date Time Provider Location Dept Phone 07/21/2021 11:00 AM NICOLE LIM [phone] HPI: (Per Dr. Beltran) Andrew Sifuentes is being seen today for snf facility (SNF) admission AND management of weakness, tube feed, infected retroperitoneal infection and seizure. ? This is a 71 year old male who presents from [facility] with primary admitting diagnosis of Seizure, [...] CT brain concerning for hydrocephalus. Tip of HAND ENDBAND CUTTER shunt was found to be in the [...] to facility records. OBJECTIVE: Labs/diagnostics: 07/04/2021 Glucose=91 Zd=630 K=3.8 Fw=009 CO2=24 BUN=14 Creatinine=0.5 NWX=843 Ca=9.0 Protein,Total=6.7 Albumin=3.6 DrfMnet=706 AST=15 ALT=21 Bilirubin,Totall=0.5 WBC=10.7 RBC=4.04 Hgb=10.9 Hct=35.3 Gzjwylek=587 VancomycinTr (more content not included)...[facility]02-24-2022 NoteHNO ID: [id number] Author: Sukhi Chery APRN.CNP Service: ? Author Type: Nurse Practitioner Type: Progress Notes Filed: 07/09/2021 5:43 PM Note Text: Connected Care Unit Progress Note Patient Name: Andrew Sifuentes Patient Facility: [facility] Admit Date 06/28/2021 Level of Care: Skilled [...] Dept Phone 07/21/2021 11:00 AM NICOLE LIM [phone] HPI: (Per Dr. Beltran) Andrew Sifuentes is being seen today for snf facility (SNF) admission AND management of weakness, tube feed, infected retroperitoneal infection and seizure. ? This is a 71 year old male who presents from [facility] with primary admitting diagnosis of Seizure, [...] CT brain concerning for hydrocephalus. Tip of HAND ENDBAND CUTTER shunt was found to be in the [...] to facility records. OBJECTIVE: Labs/diagnostics: 07/01/2021 Glucose=83 Fl=774 K=4.1 Tr=722 CO2=27 BUN=22 Creatinine=0.6 DBM=541 Ca=8.7 WBC=10.8 RBC=3.40 Hgb=9.3 Hct=29.9 Bygnxvqc=761 Vital Signs: BP 128/80 Pulse 77 Temp 36.7 ?C (98 ?F) Resp 20 Ht 182.9 cm (6') Wt 113 kg (249 lb 3.2 oz) SpO2 96% BMI 33.80 kg/m? Physical Exam: Physical Exam Vitals reviewed. Constitutional: General: He is not in acute distress. (more content not included)...[facility]02-22-2022 [facility]02-22-2022 [facility]02-21-2022 [facility]02-21-2022 Note [facility]02-20-2022 [facility] 06-26-2021 [facility]02-19-2022 [facility]02-19-2022 [facility]02-18-2022 [facility]02-18-2022 [facility]02-18-2022 [facility]02-17-2022 [facility]02-17-2022 Note [facility]02-17-2022 [facility] 06-22-2021 NoteO ID: [id number] Author: Xiomy England RN Service: Nursing Author Type: Registered Nurse Type: Nursing Progress Note Filed: 06/22/2021 7:22 PM Note Text: RT contacted as pt has wheezing auscultated and same auditory. For prn Treatment.[facility]02-16-2022 [facility]02-16-2022 [facility]02-16-2022 [facility]02-16-2022 [facility]02-16-2022 [facility]02-15-2022 [facility]02-15-2022 Note [facility]02-15-2022 [facility] 06-21-2021 [facility]02-14-2022 [facility]02-14-2022 [facility]02-14-2022 [facility]02-14-2022 [facility]02[facility]14-2022 [facility]02-13-2022 [facility]02-13-2022 Note [facility]02-13-2022 [facility] 06-19-2021 [facility]02-13-2022 [facility]02[facility]12-2022 [facility]02-12-2022 [facility]02-12-2022 [facility]02-12-2022 [facility]02-12-2022 [facility]02-12-2022 Note [facility]02-12-2022 NoteHNO ID: [id number] Author: Interface Note Service: ? Author Type: ? Type: Progress Notes Filed: 06/18/2021 3:10 AM Note Text: Epic Scheduled Downtime: 06/18/2021 1:00:00 AM to 06/18/2021 2:27:00 [facility]02-11-2022 [facility]02-11-2022 Note [facility]02-11-2022 [facility] 06-17-2021 [facility]02-11-2022 [facility]02-11-2022 [facility]02-10-2022 [facility]02-10-2022 [facility]02-10-2022 [facility]02-10-2022 [facility]02-10-2022 Note [facility]02-10-2022 [facility] 06-15-2021 [facility]02-09-2022 NoteHNO ID: [id number] Author: Lamonte Kline DO Service: Neurology ICU Author Type: Resident Type: Plan of Care Filed: 06/15/2021 6:21 PM Note Text: Patient's daughter Melissa updated on plan of care and critical condition, all questions answered.[facility]02-09-2022 [facility]02-09-2022 [facility]02-09-2022 [facility]02-09-2022 [facility]02-09-2022 Note [facility]02-09-2022 [facility] 06-15-2021 [facility]02-08-2022 [facility]02-08-2022 [facility]02-08-2022 [facility]02-08-2022 [facility]02-07-2022 [facility]02-07-2022 [facility]02-07-2022 Note [facility]02-07-2022 [facility] 06-12-2021 [facility]02-06-2022 [facility]02-06-2022 [facility]02-05-2022 [facility]02-05-2022 [facility]02-04-2022 [facility]02-04-2022 [facility]02-04-2022 Note [facility]02-04-2022 [facility] 06-09-2021 [facility]02-03-2022 [facility]02-03-2022 [facility]02-03-2022 [facility]02-02-2022 [facility]02-02-2022 NoteHNO ID: [id number] Author: Luis Diaz RN Service: ? Author Type: Registered Nurse Type: Nursing Progress Note Filed: 06/08/2021 9:23 AM Note Text: Patient off the floor to OR at this time.[facility]02-02-2022 [facility]02-02-2022 [facility] 06-08-2021 NoteHNO ID: [id number] Author: Eloise Samuel RN Service: ? Author Type: Registered Nurse Type: Nursing Progress Note Filed: 06/08/2021 12:46 AM Note Text: Dr. Brito notified of changes throughout shift. No new orders at [facility] time[facility] 06-07-2021 NoteHNO ID: [id number] Author: Eloise Samuel RN Service: ? Author Type: Registered Nurse Type: Nursing Progress Note Filed: 06/07/2021 8:01 PM Note Text: Neuro surg CAR SALES ASSOCIATE notified of downward deviation of pupils. No new orders at this time.[facility]02-01-2022 [facility]02-01-2022 [facility]02-01-2022 [facility]02-01-2022 [facility]01-31-2022 [facility]01-31-2022 [facility]01-31-2022 Note [facility]01-31-2022 [facility] 06-05-2021 [facility]01-30-2022 [facility]01-30-2022 [facility]01-29-2022 [facility]01-29-2022 NoteHNO ID: [id number] Author: Jermaine Miller PA-C Service: Neurosurgery Author Type: Physician National Sales Manager Type: Plan of Care Filed: 06/04/2021 1:59 PM Note Text: Discussed with Dr. Charles CT brain results. At this time, continue with EVD at 5 mmHg[facility] 06-04-2021 [facility]01-28-2022 [facility]01-28-2022 NoteHNO ID: [id number] Author: Mauricio Frank DO Service: Neurology ICU Author Type: Physician Type: Plan of Care Filed: 06/03/2021 2:38 PM Note Text: I spoke with Melissa and updated her over the phone. Mauricio Frank, [facility]01-28-2022 [facility]01-28-2022 [facility]01-27-2022 [facility]01-27-2022 [facility]01-27-2022 Note [facility]01-26-2022 [facility] 06-01-2021 [facility]01-26-2022 [facility]01-26-2022 [facility]01-26-2022 [facility]01-25-2022 [facility]01-25-2022 [facility]01-25-2022 [facility]01-25-2022 Note [facility]01-25-2022 [facility] 05-31-2021 [facility] [...] use of anticoagulants documented in this encounter [facility] Work Phone: Evaluation note* Diagnosis Left flank pain- Primary Abdominal pain, unspecified site Calculus of ureter Disease of prostate Unspecified disorder of prostate BPH with urinary obstruction Hypertrophy of prostate with urinary obstruction and other lower urinary tract symptoms (LUTS) documented in this encounter [facility] [employer] note* Diagnosis Left flank pain Abdominal pain, unspecified site Calculus of ureter documented in this encounter [facility]* Diagnosis Left flank pain- Primary Abdominal pain, unspecified site BPH with urinary obstruction Hypertrophy of prostate with urinary obstruction and other lower urinary tract symptoms (LUTS) History of kidney stones documented in this encounter [facility] HealthInstructions* Name Dates Details Instructions not documented [id number] Work Phone: Instructions* Name Dates Details Instructions not documented [id number] [address] [place] Work Phone: Reason for referral (narrative)No reason for referral information availableWGerman Hospital Work Phone: Advance Directives No Advanced Directives Records FoundDocuments on File Type Date Recorded Patient Letter Carrier Expl anation Advance Directives and Living Will Power of Data Manager Documents on File Type Date Recorded Patient Letter Carrier Expl anation Advance Directive(s) 06/02/2021 2:45 PM [...] Maker Relationship: 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 Adult Children (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 to door 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 representative) Documents on File Type Date Recorded Patient Letter Carrier Expl anation ACP-Advance Directive ACP-Power of Data Manager Latest Code Status on File Code Status Date Activated Date Inactivated Comments Full Code 10/21/2021 4:09 AM Healthcare Agents on File Name Relationship Healthcare Agent [facility] p Communication Melissa Sifuentes Child Primary Decision Maker deann Gurpreet Child Secondary Decision Maker Documents on File Type Date Recorded Patient Letter Carrier Expl anation ACP-Advance Directive ACP-Power of Data Manager ACP-Do Not Resuscitate 11/01/2021 7:03 AM Latest Code Status on File Code Status Date Activated Date Inactivated Comments Full Code 10/21/2021 4:09 AM 10/29/2021 7:25 PM Healthcare Agents on File Name Relationship Healthcare Agent Relationshi p Communication Melissa Gurpreet Child Primary Decision Maker deann Gurpreet Child Secondary Decision Maker Documents on File Type Date Recorded Patient Letter Carrier Expl anation ACP-Do Not Resuscitate 11/03/2021 10:15 AM ACP-Do Not Resuscitate 11/01/2021 7:03 AM Healthcare Agents on File Name Relationship Healthcare Agent Relationshi p Communication Melissa Gurpreet Child Primary Decision Maker deann Gurpreet Child Secondary Decision Maker Documents on File Type Date Recorded Patient Letter Carrier Expl anation ACP-Do Not Resuscitate 11/03/2021 10:15 [...] Documents on File Type Date Recorded Patient Letter Carrier Expl anation DNR (Do Not Resuscitate) 10/31/2021 DNR (Do Not Resuscitate) 10/21/2021 Documents on File Type Date Recorded Patient Letter Carrier Expl anation DNR (Do Not Resuscitate) 10/31/2021 [...] WORK LABWORK Chief Complaint LAB WORK LABWORK INTERMEDIATE LAB WORK INTERMEDIATE LABWORK Chief Complaint LAB WORK LABWORK INTERMEDIATE LAB WORK INTERMEDIATE LABWORK LABWORK LABWORK INTERMEDIATE LAB WORK INTERMEDIATE LABWORK INTERMEDIATE LAB WORK LABWORK INTERMEDIATE LAB WORK LABWORK INTERMEDIATE LABWORK Chief Complaint LAB WORK LABWORK INTERMEDIATE LAB WORK INTERMEDIATE LABWORK LABWORK LABWORK INTERMEDIATE LAB WORK INTERMEDIATE LABWORK INTERMEDIATE LAB WORK LABWORK INTERMEDIATE LAB WORK LABWORK INTERMEDIATE LABWORK INTERMEDIATE LABWORK LABWORK Chief Complaint LAB WORK LABWORK INTERMEDIATE LAB WORK INTERMEDIATE LABWORK LABWORK LABWORK INTERMEDIATE LAB WORK INTERMEDIATE LABWORK INTERMEDIATE LAB WORK LABWORK INTERMEDIATE LAB WORK LABWORK INTERMEDIATE LABWORK INTERMEDIATE LABWORK LABWORK INTERMEDIATE LAB WORK Chief Complaint LABWORK INTERMEDIATE LAB WORK INTERMEDIATE LABWORK LABWORK LABWORK INTERMEDIATE LAB WORK INTERMEDIATE LABWORK INTERMEDIATE LAB WORK LABWORK INTERMEDIATE LAB WORK LABWORK INTERMEDIATE LABWORK INTERMEDIATE LABWORK LABWORK LABWORK INTERMEDIATE LAB WORK Chief Complaint LABWORK INTERMEDIATE LAB WORK INTERMEDIATE LABWORK LABWORK LABWORK INTERMEDIATE LAB WORK INTERMEDIATE LABWORK INTERMEDIATE LAB WORK LABWORK INTERMEDIATE LAB WORK LABWORK INTERMEDIATE LABWORK INTERMEDIATE LABWORK LABWORK LABWORK INTERMEDIATE LAB WORK LABWORK INTERMEDIATE LABWORK INTERMEDIATE LAB WORK INTERMEDIATE LABWORK Chief Complaint INTERMEDIATE LAB WOR K INTERMEDIATE LABWORK LABWORK LABWORK INTERMEDIATE LAB WORK INTERMEDIATE LABWORK INTERMEDIATE LAB WORK LABWORK INTERMEDIATE LAB WORK LABWORK INTERMEDIATE LABWORK INTERMEDIATE LABWORK LABWORK LABWORK INTERMEDIATE LAB WORK LABWORK INTERMEDIATE LABWORK INTERMEDIATE LAB WORK INTERMEDIATE LABWORK INTERMEDIATE LAB WORK Chief Complaint INTERMEDIATE LABWORK LABWORK LABWORK INTERMEDIATE LAB WORK INTERMEDIATE LABWORK INTERMEDIATE LAB WORK LABWORK INTERMEDIATE LAB WORK LABWORK INTERMEDIATE LABWORK INTERMEDIATE LABWORK LABWORK LABWORK INTERMEDIATE LAB WORK LABWORK INTERMEDIATE LABWORK INTERMEDIATE LAB WORK INTERMEDIATE LABWORK LABWORK INTERMEDIATE LAB WORK Chief Complaint INTERMEDIATE LAB WOR K INTERMEDIATE LABWORK INTERMEDIATE LAB WORK LABWORK INTERMEDIATE LAB WORK LABWORK INTERMEDIATE LABWORK INTERMEDIATE LABWORK LABWORK LABWORK INTERMEDIATE LAB WORK LABWORK INTERMEDIATE LABWORK INTERMEDIATE LAB WORK INTERMEDIATE LABWORK LABWORK LABWORK INTERMEDIATE LAB WORK INTERMEDIATE PATIENT INTERMEDIATE LABWORK INTERMEDIATE LABWORK Chief Complaint LABWORK INTERMEDIATE LAB WORK LABWORK INTERMEDIATE LABWORK INTERMEDIATE LABWORK LABWORK LABWORK INTERMEDIATE LAB WORK LABWORK INTERMEDIATE LABWORK INTERMEDIATE LAB WORK INTERMEDIATE LABWORK LABWORK LABWORK INTERMEDIATE LAB WORK INTERMEDIATE PATIENT INTERMEDIATE LABWORK INTERMEDIATE LABWORK INTERMEDIATE LAB WORK Chief Complaint LABWORK INTERMEDIATE LABWORK INTERMEDIATE LABWORK LABWORK LABWORK INTERMEDIATE LAB WORK LABWORK INTERMEDIATE LABWORK INTERMEDIATE LAB WORK INTERMEDIATE LABWORK LABWORK LABWORK INTERMEDIATE LAB WORK INTERMEDIATE PATIENT INTERMEDIATE LABWORK INTERMEDIATE LABWORK INTERMEDIATE LAB WORK INTERMEDIATE LAB WORK INTERMEDIATE LAB WORK Chief Complaint LABWORK LABWORK INTERMEDIATE LAB WORK INTERMEDIATE PATIENT INTERMEDIATE LABWORK INTERMEDIATE LABWORK INTERMEDIATE LAB WORK INTERMEDIATE LAB WORK INTERMEDIATE LAB WORK INTERMEDIATE LABWORK INTERMEDIATE LABWORK LABWORK INTERMEDIATE LAB WORK LABWORK Chief Complaint INTERMEDIATE LAB WOR K INTERMEDIATE PATIENT INTERMEDIATE LABWORK INTERMEDIATE LABWORK INTERMEDIATE LAB WORK INTERMEDIATE LAB WORK INTERMEDIATE LAB WORK INTERMEDIATE LABWORK INTERMEDIATE LABWORK LABWORK INTERMEDIATE LAB WORK LABWORK INTERMEDIATE LABWORK Chief Complaint INTERMEDIATE PATIENT INTERMEDIATE LABWORK INTERMEDIATE LABWORK INTERMEDIATE LAB WORK INTERMEDIATE LAB WORK INTERMEDIATE LAB WORK INTERMEDIATE LABWORK INTERMEDIATE LABWORK LABWORK INTERMEDIATE LAB WORK LABWORK INTERMEDIATE LABWORK INTERMEDIATE LABWORK Chief Complaint INTERMEDIATE LABWORK INTERMEDIATE LAB WORK INTERMEDIATE LAB WORK INTERMEDIATE LAB WORK INTERMEDIATE LABWORK INTERMEDIATE LABWORK LABWORK INTERMEDIATE LAB WORK LABWORK INTERMEDIATE LABWORK INTERMEDIATE LABWORK INTERMEDIATE LABWORK Chief Complaint INTERMEDIATE LABWORK INTERMEDIATE LAB WORK INTERMEDIATE LAB WORK INTERMEDIATE LAB WORK INTERMEDIATE LABWORK INTERMEDIATE LABWORK LABWORK INTERMEDIATE LAB WORK LABWORK INTERMEDIATE LABWORK INTERMEDIATE LABWORK INTERMEDIATE LABWORK INTERMEDIATE LABWORK Chief Complaint INTERMEDIATE LABWORK LABWORK INTERMEDIATE LAB WORK LABWORK INTERMEDIATE LABWORK INTERMEDIATE LABWORK INTERMEDIATE LABWORK INTERMEDIATE LABWORK INTERMEDIATE LABWORK LABWORK INTERMEDIATE LABWORK Chief Complaint LABWORK INTERMEDIATE LAB WORK LABWORK INTERMEDIATE LABWORK INTERMEDIATE LABWORK INTERMEDIATE LABWORK INTERMEDIATE LABWORK INTERMEDIATE LABWORK LABWORK LABWORK INTERMEDIATE LABWORK INTERMEDIATE LAB WORK INTERMEDIATE LABWORK INTERMEDIATE LAB WORK Chief Complaint LABWORK INTERMEDIATE LAB WORK LABWORK INTERMEDIATE LABWORK INTERMEDIATE LABWORK INTERMEDIATE LABWORK INTERMEDIATE LABWORK INTERMEDIATE LABWORK LABWORK LABWORK INTERMEDIATE LABWORK INTERMEDIATE LAB WORK INTERMEDIATE LABWORK INTERMEDIATE LAB WORK INTERMEDIATE LABWORK Chief Complaint LABWORK INTERMEDIATE LAB WORK LABWORK INTERMEDIATE LABWORK INTERMEDIATE LABWORK INTERMEDIATE LABWORK INTERMEDIATE LABWORK INTERMEDIATE LABWORK LABWORK LABWORK INTERMEDIATE LABWORK INTERMEDIATE LAB WORK INTERMEDIATE LABWORK INTERMEDIATE LAB WORK INTERMEDIATE LABWORK LABWORK Chief Complaint INTERMEDIATE LABWORK INTERMEDIATE LABWORK INTERMEDIATE LABWORK INTERMEDIATE LABWORK INTERMEDIATE LABWORK LABWORK LABWORK INTERMEDIATE LABWORK INTERMEDIATE LAB WORK INTERMEDIATE LABWORK INTERMEDIATE LAB WORK INTERMEDIATE LABWORK LABWORK INTERMEDIATE LABWORK Chief Complaint INTERMEDIATE LABWORK INTERMEDIATE LABWORK INTERMEDIATE LABWORK INTERMEDIATE LABWORK INTERMEDIATE LABWORK LABWORK LABWORK INTERMEDIATE LABWORK INTERMEDIATE LAB WORK INTERMEDIATE LABWORK INTERMEDIATE LAB WORK INTERMEDIATE LABWORK LABWORK INTERMEDIATE LABWORK LABWORK Chief Complaint INTERMEDIATE LABWORK LABWORK LABWORK INTERMEDIATE LABWORK INTERMEDIATE LAB WORK INTERMEDIATE LABWORK INTERMEDIATE LAB WORK INTERMEDIATE LABWORK LABWORK INTERMEDIATE LABWORK LABWORK INTERMEDIATE LAB WORK INTERMEDIATE LAB WORK INTERMEDIATE LABWORK Chief Complaint LABWORK INTERMEDIATE LABWORK LABWORK INTERMEDIATE LAB WORK INTERMEDIATE LAB WORK INTERMEDIATE LABWORK INTERMEDIATE LABWORK INTERMEDIATE LAB WORK INTERMEDIATE LAB WORK INTERMEDIATE LAB WORK LABWORK INTERMEDIATE LABWORK Chief Complaint INTERMEDIATE LAB WOR K INTERMEDIATE LAB WORK INTERMEDIATE LABWORK INTERMEDIATE LABWORK INTERMEDIATE LAB WORK INTERMEDIATE LAB WORK INTERMEDIATE LAB WORK LABWORK INTERMEDIATE LABWORK LABWORK INTERMEDIATE LAB WORK INTERMEDIATE LAB WORK Chief Complaint INTERMEDIATE LAB WOR K INTERMEDIATE LABWORK INTERMEDIATE LABWORK INTERMEDIATE LAB WORK INTERMEDIATE LAB WORK INTERMEDIATE LAB WORK LABWORK INTERMEDIATE LABWORK LABWORK INTERMEDIATE LAB WORK INTERMEDIATE LAB WORK Chief Complaint INTERMEDIATE LABWORK INTERMEDIATE LABWORK INTERMEDIATE LAB WORK INTERMEDIATE LAB WORK INTERMEDIATE LAB WORK LABWORK INTERMEDIATE LABWORK LABWORK INTERMEDIATE LAB WORK INTERMEDIATE LAB WORK INTERMEDIATE LABWORK LABWORK LABWORK Chief Complaint INTERMEDIATE LAB WOR K INTERMEDIATE LAB WORK INTERMEDIATE LAB WORK LABWORK INTERMEDIATE LABWORK LABWORK INTERMEDIATE LAB WORK INTERMEDIATE LAB WORK INTERMEDIATE LABWORK LABWORK LABWORK LABWORK LABWORK LABWORK Chief Complaint INTERMEDIATE LAB WOR K LABWORK INTERMEDIATE LABWORK LABWORK INTERMEDIATE LAB WORK INTERMEDIATE LAB WORK INTERMEDIATE LABWORK LABWORK LABWORK LABWORK LABWORK INTERMEDIATE LABWORK INTERMEDIATE LAB WORK LABWORK INTERMEDIATE LAB WORK INTERMEDIATE LAB WORK Chief Complaint INTERMEDIATE LAB WOR K LABWORK INTERMEDIATE LABWORK LABWORK INTERMEDIATE LAB WORK INTERMEDIATE LAB WORK INTERMEDIATE LABWORK LABWORK LABWORK LABWORK LABWORK INTERMEDIATE LABWORK INTERMEDIATE LAB WORK LABWORK INTERMEDIATE LAB WORK INTERMEDIATE LAB WORK INTERMEDIATE LABWORK Chief Complaint INTERMEDIATE LAB WOR K INTERMEDIATE LAB WORK INTERMEDIATE LABWORK LABWORK LABWORK LABWORK LABWORK INTERMEDIATE LABWORK INTERMEDIATE LAB WORK LABWORK INTERMEDIATE LAB WORK INTERMEDIATE LAB WORK INTERMEDIATE LABWORK NUSING HOME LAB WORK Chief Complaint INTERMEDIATE LAB WOR K INTERMEDIATE LABWORK LABWORK LABWORK LABWORK LABWORK INTERMEDIATE LABWORK INTERMEDIATE LAB WORK LABWORK INTERMEDIATE LAB WORK INTERMEDIATE LAB WORK INTERMEDIATE LABWORK NUSING HOME LAB WORK LABWORK Chief Complaint INTERMEDIATE LAB WOR K INTERMEDIATE LABWORK LABWORK LABWORK LABWORK LABWORK INTERMEDIATE LABWORK INTERMEDIATE LAB WORK LABWORK INTERMEDIATE LAB WORK INTERMEDIATE LAB WORK INTERMEDIATE LABWORK NUSING HOME LAB WORK INTERMEDIATE LABWORK LABWORK Chief Complaint LABWORK INTERMEDIATE LAB WORK INTERMEDIATE LAB WORK INTERMEDIATE LABWORK NUSING HOME LAB WORK INTERMEDIATE LABWORK LABWORK INTERMEDIATE LABWORK INTERMEDIATE LAB WORK LABWORK LABWORK Chief Complaint NUSING HOME LAB WORK INTERMEDIATE LABWORK LABWORK INTERMEDIATE LABWORK INTERMEDIATE LAB WORK LABWORK INTERMEDIATE LAB WORK LABWORK LABWORK Chief Complaint NUSING HOME LAB WORK INTERMEDIATE LABWORK LABWORK INTERMEDIATE LABWORK INTERMEDIATE LAB WORK LABWORK INTERMEDIATE LAB WORK LABWORK INTERMEDIATE LAB WORK LABWORK Chief Complaint INTERMEDIATE LABWORK LABWORK INTERMEDIATE LABWORK INTERMEDIATE LAB WORK LABWORK INTERMEDIATE LAB WORK LABWORK INTERMEDIATE LAB WORK LABWORK LABWORK Chief Complaint INTERMEDIATE LABWORK LABWORK INTERMEDIATE LABWORK INTERMEDIATE LAB WORK LABWORK INTERMEDIATE LAB WORK LABWORK INTERMEDIATE LAB WORK LABWORK LABWORK LABWORK Chief Complaint INTERMEDIATE LABWORK LABWORK INTERMEDIATE LABWORK INTERMEDIATE LAB WORK LABWORK INTERMEDIATE LAB WORK LABWORK INTERMEDIATE LAB WORK LABWORK LABWORK LABWORK LABWORK Chief Complaint INTERMEDIATE LABWORK LABWORK INTERMEDIATE LABWORK INTERMEDIATE LAB WORK LABWORK INTERMEDIATE LAB WORK LABWORK INTERMEDIATE LAB WORK LABWORK LABWORK INTERMEDIATE LAB WORK LABWORK LABWORK LABWORK Chief Complaint LABWORK INTERMEDIATE LABWORK INTERMEDIATE LAB WORK LABWORK INTERMEDIATE LAB WORK LABWORK INTERMEDIATE LAB WORK LABWORK LABWORK INTERMEDIATE LAB WORK LABWORK LABWORK LABWORK LABWORK LABWORK LABWORK LABWORK Chief Complaint INTERMEDIATE LABWORK INTERMEDIATE LAB WORK LABWORK INTERMEDIATE LAB WORK LABWORK INTERMEDIATE LAB WORK LABWORK LABWORK INTERMEDIATE LAB WORK LABWORK LABWORK LABWORK LABWORK LABWORK LABWORK LABWORK LABWORK Chief Complaint LABWORK INTERMEDIATE LAB WORK LABWORK INTERMEDIATE LAB WORK LABWORK LABWORK INTERMEDIATE LAB WORK LABWORK LABWORK LABWORK LABWORK LABWORK LABWORK LABWORK LABWORK LABWORK Chief Complaint INTERMEDIATE LABWORK LABWORK LABWORK LABWORK LABWORK INTERMEDIATE LABWORK INTERMEDIATE LAB WORK LABWORK INTERMEDIATE LAB WORK INTERMEDIATE LAB WORK INTERMEDIATE LABWORK NUSING HOME LAB WORK INTERMEDIATE LABWORK LABWORK INTERMEDIATE LABWORK INTERMEDIATE LAB WORK Chief Complaint Admit Date INTERMEDIATE LAB WORK March 13, 2024 5:00am LABWORK March 14, 2024 5 :00am INTERMEDIATE LAB WORK March 17 5:00am INTERMEDIATE LAB WORK March 18 5:00am INTERMEDIATE LAB WORK March 19 4:00am INTERMEDIATE LAB WORK March 20 5:00am INTERMEDIATE LAB WORK March 24 5:00am INTERMEDIATE LAB WORK March 27 5:00am LABWORK March 31, 2024 5:00am INTERMEDIATE LAB WORK April 04 5:00am LABWORK April 07, 2024 5 :00am INTERMEDIATE LAB WORK April 10, 2024 5:00am INTERMEDIATE LAB WORK April 14, 2024 5:00am INTERMEDIATE LAB WORK April 17 5:00am LABWORK April 21, 2024 5:00am INTERMEDIATE LAB WORK April 24 4:00am LABWORK April 28, 2024 5:00am INTERMEDIATE LAB WORK May 01 4:00am INTERMEDIATE LAB WORK May 05 5:00am INTERMEDIATE LAB WORK May 08, 2024 5:00am INTERMEDIATE LAB WORK May 09, 2024 4:00am LABWORK May 12, 2024 5: 00am INTERMEDIATE LAB WORK May 15, 2024 5:00am INTERMEDIATE LAB WORK May 19, 2024 4:00am INTERMEDIATE LAB WORK May 20, 2024 5:00am INTERMEDIATE LAB WORK May 22, 2024 5:00am LABWORK May 26, 2024 5 :00am INTERMEDIATE LAB WORK May 29, 2024 5:00am INTERMEDIATE LAB WORK June 02, 2024 5:00am INTERMEDIATE LAB WORK June 05, 2024 5:00am LABWORK June 09, 2024 5 :00am INTERMEDIATE LAB WORK June 12, 2024 5:00am INTERMEDIATE LAB WORK June 16 5:00am INTERMEDIATE LAB WORK June 19 5:00am LABWORK June 23, 2024 5:00am INTERMEDIATE LAB WORK June 26 5:00am INTERMEDIATE LAB WORK June 30 5:00am Chief Complaint Admit Date LABWORK April 07, 2024 5 :00am INTERMEDIATE LAB WORK April 10, 2024 5:00am INTERMEDIATE LAB WORK April 14, 2024 5:00am INTERMEDIATE LAB WORK April 17 5:00am LABWORK April 21, 2024 5:00am INTERMEDIATE LAB WORK April 24 4:00am LABWORK April 28, 2024 5:00am INTERMEDIATE LAB WORK May 01 4:00am INTERMEDIATE LAB WORK May 05 5:00am INTERMEDIATE LAB WORK May 08, 2024 5:00am INTERMEDIATE LAB WORK May 09, 2024 4:00am LABWORK May 12, 2024 5: 00am INTERMEDIATE LAB WORK May 15, 2024 5:00am INTERMEDIATE LAB WORK May 19, 2024 4:00am INTERMEDIATE LAB WORK May 20, 2024 5:00am INTERMEDIATE LAB WORK May 22, 2024 5:00am LABWORK May 26, 2024 5 :00am INTERMEDIATE LAB WORK May 29, 2024 5:00am INTERMEDIATE LAB WORK June 02, 2024 5:00am INTERMEDIATE LAB WORK June 05, 2024 5:00am LABWORK June 09, 2024 5 :00am INTERMEDIATE LAB WORK June 12, 2024 5:00am INTERMEDIATE LAB WORK June 16 5:00am INTERMEDIATE LAB WORK June 19 5:00am LABWORK June 23, 2024 5:00am INTERMEDIATE LAB WORK June 26 5:00am INTERMEDIATE LAB WORK June 30 5:00am INTERMEDIATE LAB WORK July 03 5:00am INTERMEDIATE LAB WORK July 07, 2024 4: 00am LABWORK July 11, 2024 5:00 am LABWORK July 14, 2024 5:0 0am INTERMEDIATE LAB WORK July 17, 2024 4 :00am INTERMEDIATE LAB WORK July 24, 2024 4 :00am Chief Complaint Admit Date INTERMEDIATE LAB WORK April 14, 2024 5:00am INTERMEDIATE LAB WORK April 17 5:00am LABWORK April 21, 2024 5:00am INTERMEDIATE LAB WORK April 24 4:00am LABWORK April 28, 2024 5:00am INTERMEDIATE LAB WORK May 01 4:00am INTERMEDIATE LAB WORK May 05 5:00am INTERMEDIATE LAB WORK May 08, 2024 5:00am INTERMEDIATE LAB WORK May 09, 2024 4:00am LABWORK May 12, 2024 5: 00am INTERMEDIATE LAB WORK May 15, 2024 5:00am INTERMEDIATE LAB WORK May 19, 2024 4:00am INTERMEDIATE LAB WORK May 20, 2024 5:00am INTERMEDIATE LAB WORK May 22, 2024 5:00am LABWORK May 26, 2024 5 :00am INTERMEDIATE LAB WORK May 29, 2024 5:00am INTERMEDIATE LAB WORK June 02, 2024 5:00am INTERMEDIATE LAB WORK June 05, 2024 5:00am LABWORK June 09, 2024 5 :00am INTERMEDIATE LAB WORK June 12, 2024 5:00am INTERMEDIATE LAB WORK June 16 5:00am INTERMEDIATE LAB WORK June 19 5:00am LABWORK June 23, 2024 5:00am INTERMEDIATE LAB WORK June 26 5:00am INTERMEDIATE LAB WORK June 30 5:00am INTERMEDIATE LAB WORK July 03 5:00am INTERMEDIATE LAB WORK July 07, 2024 4: 00am LABWORK July 11, 2024 5:00 am LABWORK July 14, 2024 5:0 0am INTERMEDIATE LAB WORK July 17, 2024 4 :00am INTERMEDIATE LAB WORK July 24, 2024 4 :00am LABWORK July 25, 2024 5:0 0am Chief Complaint Admit Date INTERMEDIATE LAB WORK April 14, 2024 5:00am INTERMEDIATE LAB WORK April 17 5:00am LABWORK April 21, 2024 5:00am INTERMEDIATE LAB WORK April 24 4:00am LABWORK April 28, 2024 5:00am INTERMEDIATE LAB WORK May 01 4:00am INTERMEDIATE LAB WORK May 05 5:00am INTERMEDIATE LAB WORK May 08, 2024 5:00am INTERMEDIATE LAB WORK May 09, 2024 4:00am LABWORK May 12, 2024 5: 00am INTERMEDIATE LAB WORK May 15, 2024 5:00am INTERMEDIATE LAB WORK May 19, 2024 4:00am INTERMEDIATE LAB WORK May 20, 2024 5:00am INTERMEDIATE LAB WORK May 22, 2024 5:00am LABWORK May 26, 2024 5 :00am INTERMEDIATE LAB WORK May 29, 2024 5:00am INTERMEDIATE LAB WORK June 02, 2024 5:00am INTERMEDIATE LAB WORK June 05, 2024 5:00am LABWORK June 09, 2024 5 :00am INTERMEDIATE LAB WORK June 12, 2024 5:00am INTERMEDIATE LAB WORK June 16 5:00am INTERMEDIATE LAB WORK June 19 5:00am LABWORK June 23, 2024 5:00am INTERMEDIATE LAB WORK June 26 5:00am INTERMEDIATE LAB WORK June 30 5:00am INTERMEDIATE LAB WORK July 03 5:00am INTERMEDIATE LAB WORK July 07, 2024 4: 00am LABWORK July 11, 2024 5:00 am LABWORK July 14, 2024 5:0 0am INTERMEDIATE LAB WORK July 17, 2024 4 :00am INTERMEDIATE LAB WORK July 21, 2024 5 :00am INTERMEDIATE LAB WORK July 24, 2024 4 :00am LABWORK July 25, 2024 5:0 0am INTERMEDIATE LAB WORK July 31, 2024 4 :00am Chief Complaint Admit Date INTERMEDIATE LAB WORK April 17 5:00am LABWORK April 21, 2024 5:00am INTERMEDIATE LAB WORK April 24 4:00am LABWORK April 28, 2024 5:00am INTERMEDIATE LAB WORK May 01 4:00am INTERMEDIATE LAB WORK May 05 5:00am INTERMEDIATE LAB WORK May 08, 2024 5:00am INTERMEDIATE LAB WORK May 09, 2024 4:00am LABWORK May 12, 2024 5: 00am INTERMEDIATE LAB WORK May 15, 2024 5:00am INTERMEDIATE LAB WORK May 19, 2024 4:00am INTERMEDIATE LAB WORK May 20, 2024 5:00am INTERMEDIATE LAB WORK May 22, 2024 5:00am LABWORK May 26, 2024 5 :00am INTERMEDIATE LAB WORK May 29, 2024 5:00am INTERMEDIATE LAB WORK June 02, 2024 5:00am INTERMEDIATE LAB WORK June 05, 2024 5:00am LABWORK June 09, 2024 5 :00am INTERMEDIATE LAB WORK June 12, 2024 5:00am INTERMEDIATE LAB WORK June 16 5:00am INTERMEDIATE LAB WORK June 19 5:00am LABWORK June 23, 2024 5:00am INTERMEDIATE LAB WORK June 26 5:00am INTERMEDIATE LAB WORK June 30 5:00am INTERMEDIATE LAB WORK July 03 5:00am INTERMEDIATE LAB WORK July 07, 2024 4: 00am LABWORK July 11, 2024 5:00 am LABWORK July 14, 2024 5:0 0am INTERMEDIATE LAB WORK July 17, 2024 4 :00am INTERMEDIATE LAB WORK July 21, 2024 5 :00am INTERMEDIATE LAB WORK July 24, 2024 4 :00am LABWORK July 25, 2024 5:0 0am INTERMEDIATE LAB WORK July 28, 2024 5 :00am INTERMEDIATE LAB WORK July 31, 2024 4 :00am Chief Complaint Admit Date INTERMEDIATE LAB WORK April 24 4:00am LABWORK April 28, 2024 5:00am INTERMEDIATE LAB WORK May 01 4:00am INTERMEDIATE LAB WORK May 05 5:00am INTERMEDIATE LAB WORK May 08, 2024 5:00am INTERMEDIATE LAB WORK May 09, 2024 4:00am LABWORK May 12, 2024 5: 00am INTERMEDIATE LAB WORK May 15, 2024 5:00am INTERMEDIATE LAB WORK May 19, 2024 4:00am INTERMEDIATE LAB WORK May 20, 2024 5:00am INTERMEDIATE LAB WORK May 22, 2024 5:00am LABWORK May 26, 2024 5 :00am INTERMEDIATE LAB WORK May 29, 2024 5:00am INTERMEDIATE LAB WORK June 02, 2024 5:00am INTERMEDIATE LAB WORK June 05, 2024 5:00am LABWORK June 09, 2024 5 :00am INTERMEDIATE LAB WORK June 12, 2024 5:00am INTERMEDIATE LAB WORK June 16 5:00am INTERMEDIATE LAB WORK June 19 5:00am LABWORK June 23, 2024 5:00am INTERMEDIATE LAB WORK June 26 5:00am INTERMEDIATE LAB WORK June 30 5:00am INTERMEDIATE LAB WORK July 03 5:00am INTERMEDIATE LAB WORK July 07, 2024 4: 00am LABWORK July 11, 2024 5:00 am LABWORK July 14, 2024 5:0 0am INTERMEDIATE LAB WORK July 17, 2024 4 :00am INTERMEDIATE LAB WORK July 21, 2024 5 :00am INTERMEDIATE LAB WORK July 24, 2024 4 :00am LABWORK July 25, 2024 5:0 0am INTERMEDIATE LAB WORK July 28, 2024 5 :00am INTERMEDIATE LAB WORK July 31, 2024 4 :00am LABWORK August 04, 2024 5:0 0am Chief Complaint Admit Date INTERMEDIATE LAB WORK May 15, 2024 5:00am INTERMEDIATE LAB WORK May 19, 2024 4:00am INTERMEDIATE LAB WORK May 20, 2024 5:00am INTERMEDIATE LAB WORK May 22, 2024 5:00am LABWORK May 26, 2024 5 :00am INTERMEDIATE LAB WORK May 29, 2024 5:00am INTERMEDIATE LAB WORK June 02, 2024 5:00am INTERMEDIATE LAB WORK June 05, 2024 5:00am LABWORK June 09, 2024 5 :00am INTERMEDIATE LAB WORK June 12, 2024 5:00am INTERMEDIATE LAB WORK June 16 5:00am INTERMEDIATE LAB WORK June 19 5:00am LABWORK June 23, 2024 5:00am INTERMEDIATE LAB WORK June 26 5:00am INTERMEDIATE LAB WORK June 30 5:00am INTERMEDIATE LAB WORK July 03 5:00am INTERMEDIATE LAB WORK July 07, 2024 4: 00am LABWORK July 11, 2024 5:00 am LABWORK July 14, 2024 5:0 0am INTERMEDIATE LAB WORK July 17, 2024 4 :00am INTERMEDIATE LAB WORK July 21, 2024 5 :00am INTERMEDIATE LAB WORK July 24, 2024 4 :00am LABWORK July 25, 2024 5:0 0am INTERMEDIATE LAB WORK July 28, 2024 5 :00am INTERMEDIATE LAB WORK July 31, 2024 4 :00am LABWORK August 04, 2024 5:0 0am LABWORK August 07, 2024 5:00 am INTERMEDIATE LAB WORK August 11, 2024 5: 00am INTERMEDIATE LAB WORK August 14, 2024 5 :00am INTERMEDIATE LAB WORK August 18, 2024 5 :00am Chief Complaint Admit Date INTERMEDIATE LAB WORK May 20, 2024 5:00am INTERMEDIATE LAB WORK May 22, 2024 5:00am LABWORK May 26, 2024 5 :00am INTERMEDIATE LAB WORK May 29, 2024 5:00am INTERMEDIATE LAB WORK June 02, 2024 5:00am INTERMEDIATE LAB WORK June 05, 2024 5:00am LABWORK June 09, 2024 5 :00am INTERMEDIATE LAB WORK June 12, 2024 5:00am INTERMEDIATE LAB WORK June 16 5:00am INTERMEDIATE LAB WORK June 19 5:00am LABWORK June 23, 2024 5:00am INTERMEDIATE LAB WORK June 26 5:00am INTERMEDIATE LAB WORK June 30 5:00am INTERMEDIATE LAB WORK July 03 5:00am INTERMEDIATE LAB WORK July 07, 2024 4: 00am LABWORK July 11, 2024 5:00 am LABWORK July 14, 2024 5:0 0am INTERMEDIATE LAB WORK July 17, 2024 4 :00am INTERMEDIATE LAB WORK July 21, 2024 5 :00am INTERMEDIATE LAB WORK July 24, 2024 4 :00am LABWORK July 25, 2024 5:0 0am INTERMEDIATE LAB WORK July 28, 2024 5 :00am INTERMEDIATE LAB WORK July 31, 2024 4 :00am LABWORK August 04, 2024 5:0 0am LABWORK August 07, 2024 5:00 am INTERMEDIATE LAB WORK August 11, 2024 5: 00am INTERMEDIATE LAB WORK August 14, 2024 5 :00am INTERMEDIATE LAB WORK August 18, 2024 5 :00am LABWORK August 28, 2024 5:0 0am Chief Complaint Admit Date INTERMEDIATE LAB WORK May 22, 2024 5:00am LABWORK May 26, 2024 5 :00am INTERMEDIATE LAB WORK May 29, 2024 5:00am INTERMEDIATE LAB WORK June 02, 2024 5:00am INTERMEDIATE LAB WORK June 05, 2024 5:00am LABWORK June 09, 2024 5 :00am INTERMEDIATE LAB WORK June 12, 2024 5:00am INTERMEDIATE LAB WORK June 16 5:00am INTERMEDIATE LAB WORK June 19 5:00am LABWORK June 23, 2024 5:00am INTERMEDIATE LAB WORK June 26 5:00am INTERMEDIATE LAB WORK June 30 5:00am INTERMEDIATE LAB WORK July 03 5:00am INTERMEDIATE LAB WORK July 07, 2024 4: 00am LABWORK July 11, 2024 5:00 am LABWORK July 14, 2024 5:0 0am INTERMEDIATE LAB WORK July 17, 2024 4 :00am INTERMEDIATE LAB WORK July 21, 2024 5 :00am INTERMEDIATE LAB WORK July 24, 2024 4 :00am LABWORK July 25, 2024 5:0 0am INTERMEDIATE LAB WORK July 28, 2024 5 :00am INTERMEDIATE LAB WORK July 31, 2024 4 :00am LABWORK August 04, 2024 5:0 0am LABWORK August 07, 2024 5:00 am INTERMEDIATE LAB WORK August 11, 2024 5: 00am INTERMEDIATE LAB WORK August 14, 2024 5 :00am INTERMEDIATE LAB WORK August 18, 2024 5 :00am INTERMEDIATE LAB WORK August 21, 2024 5 :00am LABWORK August 28, 2024 5:0 0am LABWORK September 01, 2024 5:0 0am Chief Complaint Admit Date INTERMEDIATE LAB WORK June 05, 2024 5:00am LABWORK June 09, 2024 5 :00am INTERMEDIATE LAB WORK June 12, 2024 5:00am INTERMEDIATE LAB WORK June 16 5:00am INTERMEDIATE LAB WORK June 19 5:00am LABWORK June 23, 2024 5:00am INTERMEDIATE LAB WORK June 26 5:00am INTERMEDIATE LAB WORK June 30 5:00am INTERMEDIATE LAB WORK July 03 5:00am INTERMEDIATE LAB WORK July 07, 2024 4: 00am LABWORK July 11, 2024 5:00 am LABWORK July 14, 2024 5:0 0am INTERMEDIATE LAB WORK July 17, 2024 4 :00am INTERMEDIATE LAB WORK July 21, 2024 5 :00am INTERMEDIATE LAB WORK July 24, 2024 4 :00am LABWORK July 25, 2024 5:0 0am INTERMEDIATE LAB WORK July 28, 2024 5 :00am INTERMEDIATE LAB WORK July 31, 2024 4 :00am LABWORK August 04, 2024 5:0 0am LABWORK August 07, 2024 5:00 am INTERMEDIATE LAB WORK August 11, 2024 5: 00am INTERMEDIATE LAB WORK August 14, 2024 5 :00am INTERMEDIATE LAB WORK August 18, 2024 5 :00am INTERMEDIATE LAB WORK August 21, 2024 5 :00am INTERMEDIATE LAB WORK August 25, 2024 4 :00am LABWORK August 28, 2024 5:0 0am LABWORK September 01, 2024 5:0 0am LABWORK September 04, 2024 5:00am Chief Complaint Admit Date INTERMEDIATE LAB WORK June 05, 2024 5:00am LABWORK June 09, 2024 5 :00am INTERMEDIATE LAB WORK June 12, 2024 5:00am INTERMEDIATE LAB WORK June 16 5:00am INTERMEDIATE LAB WORK June 19 5:00am LABWORK June 23, 2024 5:00am INTERMEDIATE LAB WORK June 26 5:00am INTERMEDIATE LAB WORK June 30 5:00am INTERMEDIATE LAB WORK July 03 5:00am INTERMEDIATE LAB WORK July 07, 2024 4: 00am LABWORK July 11, 2024 5:00 am LABWORK July 14, 2024 5:0 0am INTERMEDIATE LAB WORK July 17, 2024 4 :00am INTERMEDIATE LAB WORK July 21, 2024 5 :00am INTERMEDIATE LAB WORK July 24, 2024 4 :00am LABWORK July 25, 2024 5:0 0am INTERMEDIATE LAB WORK July 28, 2024 5 :00am INTERMEDIATE LAB WORK July 31, 2024 4 :00am LABWORK August 04, 2024 5:0 0am LABWORK August 07, 2024 5:00 am INTERMEDIATE LAB WORK August 11, 2024 5: 00am INTERMEDIATE LAB WORK August 14, 2024 5 :00am INTERMEDIATE LAB WORK August 18, 2024 5 :00am INTERMEDIATE LAB WORK August 21, 2024 5 :00am INTERMEDIATE LAB WORK August 25, 2024 4 :00am LABWORK August 28, 2024 5:0 0am LABWORK September 01, 2024 5:0 0am LABWORK September 04, 2024 5:00am LABWORK September 15, 2024 5:00a m Chief Complaint Admit Date INTERMEDIATE LAB WORK June 19 5:00am LABWORK June 23, 2024 5:00am INTERMEDIATE LAB WORK June 26 5:00am INTERMEDIATE LAB WORK June 30 5:00am INTERMEDIATE LAB WORK July 03 5:00am INTERMEDIATE LAB WORK July 07, 2024 4: 00am LABWORK July 11, 2024 5:00 am LABWORK July 14, 2024 5:0 0am INTERMEDIATE LAB WORK July 17, 2024 4 :00am INTERMEDIATE LAB WORK July 21, 2024 5 :00am INTERMEDIATE LAB WORK July 24, 2024 4 :00am LABWORK July 25, 2024 5:0 0am INTERMEDIATE LAB WORK July 28, 2024 5 :00am INTERMEDIATE LAB WORK July 31, 2024 4 :00am LABWORK August 04, 2024 5:0 0am LABWORK August 07, 2024 5:00 am INTERMEDIATE LAB WORK August 11, 2024 5: 00am INTERMEDIATE LAB WORK August 14, 2024 5 :00am INTERMEDIATE LAB WORK August 18, 2024 5 :00am INTERMEDIATE LAB WORK August 21, 2024 5 :00am INTERMEDIATE LAB WORK August 25, 2024 4 :00am LABWORK August 28, 2024 5:0 0am LABWORK September 01, 2024 5:0 0am LABWORK September 04, 2024 5:00am INTERMEDIATE LAB WORK September 08, 2024 4:00 am INTERMEDIATE LAB WORK September 11, 2024 5:00 am LABWORK September 15, 2024 5:00a m INTERMEDIATE LAB WORK September 25, 2024 5:0 0am INTERMEDIATE LAB WORK September 30, 2024 4:0 0am Chief Complaint Admit Date INTERMEDIATE LAB WORK June 12, 2024 5:00am INTERMEDIATE LAB WORK June 16 5:00am INTERMEDIATE LAB WORK June 19 5:00am LABWORK June 23, 2024 5:00am INTERMEDIATE LAB WORK June 26 5:00am INTERMEDIATE LAB WORK June 30 5:00am INTERMEDIATE LAB WORK July 03 5:00am INTERMEDIATE LAB WORK July 07, 2024 4: 00am LABWORK July 11, 2024 5:00 am LABWORK July 14, 2024 5:0 0am INTERMEDIATE LAB WORK July 17, 2024 4 :00am INTERMEDIATE LAB WORK July 21, 2024 5 :00am INTERMEDIATE LAB WORK July 24, 2024 4 :00am LABWORK July 25, 2024 5:0 0am INTERMEDIATE LAB WORK July 28, 2024 5 :00am INTERMEDIATE LAB WORK July 31, 2024 4 :00am LABWORK August 04, 2024 5:0 0am LABWORK August 07, 2024 5:00 am INTERMEDIATE LAB WORK August 11, 2024 5: 00am INTERMEDIATE LAB WORK August 14, 2024 5 :00am INTERMEDIATE LAB WORK August 18, 2024 5 :00am INTERMEDIATE LAB WORK August 21, 2024 5 :00am INTERMEDIATE LAB WORK August 25, 2024 4 :00am LABWORK August 28, 2024 5:0 0am LABWORK September 01, 2024 5:0 0am LABWORK September 04, 2024 5:00am INTERMEDIATE LAB WORK September 08, 2024 4:00 am LABWORK September 15, 2024 5:00a m Chief Complaint Admit Date INTERMEDIATE LAB WORK July 07, 2024 4: 00am LABWORK July 11, 2024 5:00 am LABWORK July 14, 2024 5:0 0am INTERMEDIATE LAB WORK July 17, 2024 4 :00am INTERMEDIATE LAB WORK July 21, 2024 5 :00am INTERMEDIATE LAB WORK July 24, 2024 4 :00am LABWORK July 25, 2024 5:0 0am INTERMEDIATE LAB WORK July 28, 2024 5 :00am INTERMEDIATE LAB WORK July 31, 2024 4 :00am LABWORK August 04, 2024 5:0 0am LABWORK August 07, 2024 5:00 am INTERMEDIATE LAB WORK August 11, 2024 5: 00am INTERMEDIATE LAB WORK August 14, 2024 5 :00am INTERMEDIATE LAB WORK August 18, 2024 5 :00am INTERMEDIATE LAB WORK August 21, 2024 5 :00am INTERMEDIATE LAB WORK August 25, 2024 4 :00am LABWORK August 28, 2024 5:0 0am LABWORK September 01, 2024 5:0 0am LABWORK September 04, 2024 5:00am INTERMEDIATE LAB WORK September 08, 2024 4:00 am INTERMEDIATE LAB WORK September 11, 2024 5:00 am LABWORK September 15, 2024 5:00a m INTERMEDIATE LAB WORK September 18, 2024 5:0 0am INTERMEDIATE LAB WORK September 22, 2024 5:0 0am INTERMEDIATE LAB WORK September 25, 2024 5:0 0am INTERMEDIATE LAB WORK September 30, 2024 4:0 0am INTERMEDIATE LAB WORK October 02, 2024 5:0 0am INTERMEDIATE LAB WORK October 09, 2024 5:0 0am Chief Complaint Admit Date INTERMEDIATE LAB WORK October 09, 2024 5:0 0am LABWORK October 13, 2024 5:00a m INTERMEDIATE LAB WORK October 16, 2024 5: 00am INTERMEDIATE LAB WORK October 20, 2024 4: 00am INTERMEDIATE LAB WORK October 23, 2024 5: 00am INTERMEDIATE LAB WORK October 27, 2024 4: 00am INTERMEDIATE LAB WORK October 30, 2024 6: 35am LABWORK November 03, 2024 5:00 am INTERMEDIATE LAB WORK November 06, 2024 4:0 0am INTERMEDIATE LAB WORK November 10, 2024 4:0 0am INTERMEDIATE LAB WORK November 13, 2024 5: 00am INTERMEDIATE LAB WORK November 17, 2024 5: 00am INTERMEDIATE LAB WORK November 20, 2024 5: 00am INTERMEDIATE LAB WORK November 24, 2024 5: 00am INTERMEDIATE LAB WORK November 27, 2024 5: 00am LABWORK November 28, 2024 5:00 am LABWORK December 01, 2024 5:00 am INTERMEDIATE LAB WORK December 02, 2024 4: 00am INTERMEDIATE LAB WORK December 04, 2024 5: 00am INTERMEDIATE LAB WORK December 08, 2024 5 :00am LABWORK December 11, 2024 6:0 0am INTERMEDIATE LAB WORK December 15, 2024 4:00am INTERMEDIATE LAB WORK December 18, 2024 5:00am INTERMEDIATE LAB WORK December 22, 2024 4:00am LABWORK December 24, 2024 5: 00am INTERMEDIATE LAB WORK December 25, 2024 5:00am INTERMEDIATE LAB WORK December 26, 2024 5:00am LABWORK December 29, 2024 5: 00am INTERMEDIATE LAB WORK January 01, 2025 5:00am INTERMEDIATE LAB WORK January 06 5:00am LABWORK January 08, 2025 5:00am INTERMEDIATE LAB WORK January 12 4:00am INTERMEDIATE LAB WORK January 15 5:00am LABWORK January 19, 2025 5:00am INTERMEDIATE LAB WORK January 26 4:00am Reason for Referral Specialty Diagnoses / Procedures Referred By Contac t Referred To Contact Urology Diagnoses Other fatigue Lanette Munguia DO [address] [place] [address] Afl [facility] [address] [place] [id number] Referral ID Status Reason Start Date Expiration Date V isits Requested Visits Authorized [id number] Open Specialty Services Required 11/01/2021 11/01/2022 1 1 Scheduling Instructions [facility] - [address] , [address] [address] Specialty Diagnoses / Procedures Referred By Contac t Referred To Contact IP Unit Diagnoses Heel ulceration, left, with unspecified severity (HCC) Henry Hidalgo PA [address] [place] [address] [facility] [address] [place] [id number] Referral ID Status Reason Start Date Expiration Date V isits Requested Visits Authorized [id number] Open Specialty Services Required 12/22/2021 12/22/2022 1 1 Scheduling Instructions [facility] - [facility] [address] [place] [address] Comments Please use the parking lot located on [address] or [employer]. There are handicap parking spots located in a small lot beside the wound care entrance off of [address]. Please be advised there is a small incline from those handicap spots to our main door. Bring photo ID and insurance card to photocopy. Wear loose fitting clothing (to easily access wound). Bring list of medications (or can be sent by office). Check in at Registration for your first visit. Please call us directly with any questions [phone]. We look forward to helping you heal. Specialty Diagnoses / Procedures Referred By Aki t Referred To Contact Radiology Diagnoses Left flank pain Calculus of ureter Procedures CT abdomen pelvis wo IV contrast Rebecca Buck MD [address] [place] [address] Referral ID Status Reason Start Date Expiration Date V isits Requested Visits Authorized [id number] Pending Review 08/13/2023 08/12/2024 1 1 Referral ID Status Reason Start Date Expiration Date Visits Re quested Visits Authorized [id number] Closed 08/17/2023 09/16/2023 1 1 Additional Source Comments Source Comments (unrecognize d section and content) In the event this informatio n is protected by the Federal Confidentiality of Alcohol and Drug Abuse Patient Records regulations: The Federal rules restrict any use of the information to criminally investigate or prosecute any alcohol or drug abuse patient.[facility] the event this information is protected by the Federal Confidentiality of Alcohol and Drug Abuse Patient Records regulations: The Federal rules restrict any use of the information to criminally investigate or prosecute any alcohol or drug abuse patient.[facility] (unrecognized sect ion and content) No Status Records FoundNo Status Records FoundNo Status Records FoundNo Status Records FoundNo Status Records FoundNo Status Records FoundNo Status Records FoundNo Status Records FoundNo Status Records FoundNo Status Records Found INFORMATION SOURCE (unrecogn ized section and content) DATE CREATED AUTHOR 05/20/2021 [facility] DATE CREATED AUTHOR AUTHOR'S ORGANIZ ATION 06/07/2021 [facility] DATE CREATED AUTHOR AUTHOR'S ORGANIZ ATION 08/02/2021 [facility] DATE CREATED AUTHOR AUTHOR'S ORGANIZ ATION 12/09/2021 [facility] DATE CREATED AUTHOR AUTHOR'S ORGANIZ ATION 12/29/2021 [facility] DATE CREATED AUTHOR AUTHOR'S ORGANIZ ATION 02/04/2022 [facility] DATE CREATED AUTHOR AUTHOR'S ORGANIZ ATION 03/03/2022 [facility] DATE CREATED AUTHOR AUTHOR'S ORGANIZ ATION 09/15/2023 [facility] DATE CREATED AUTHOR AUTHOR'S ORGANIZ ATION 02/20/2025 [facility] Reason for Visit (unrecogniz ed section and content) Reason Comments Missed Appointment Reason Comments Leg Swelling Blood clots Reason Comments Altered Mental Status Pt presents to ED via [facility] for complaint listed. Pt is from [facility]. Pt's LKW was 1000 hours today. Per EMS, pt had a - [place]. Pt denies CP, SOB, and N/V. Pt seems slow to respond, slightly confused at this time. Reason Comments Osteomyelitis Patient [facility], facility did xrays on left lower leg and and have concerns for possible osteomyelitis A&Ox2 to self and place, stated year 2022 pres[facility] Reason Comments Fall Patient had unwitnes sed fall at [facility] landed on butt. Is on [...] Buck MD [address] [place] [address] Referral ID Status Reason Start Date Expiration Date Visits Re quested Visits Authorized [id number] Closed 08/17/2023 09/16/2023 1 1 Reason Comments [...] 07, 2024 End: July 07, 2024 Karon NOAVK MD Referring Provider Active Start: July 07, [...] 01, 2024 End: September 01, 2024 Carlos NOAVK Attending Provider Active Sta rt: September 01, [...] Care Provider Active Start: July 28, 2024 Karno NOVAK MD Attending Provider Active Start: July [...] Status Dates Carlos NOVAK Attending Provider Active Roller Hand Relationship Specialty Start Date End Date Mateus Burris [address] [place] [address] PCP - General Family Practice 11/12/19 Rol[employer] Hand Relationship Specialty [place] [address] [place] [address] PCP - General Family Medicine 09/09/20 Roller Hand Relationship Specialty [place] [address] [place] [address] PCP - General Family Medicine 09/09/20 Roller Hand Relationship Specialty [place] [address] [place] [address] PCP - General Family Medicine 09/09/20 Roller Hand Relationship Specialty Start Date End Date Carlos Cavazos MD [address] [place] [address] PCP - General Internal Medicine 02/20/22 Team [...] Monika Staley MD Primary Care Provider Active Roller Hand Relationship Specialty Start Date End Date KennyCarlos [address] [place] [phone] PCP - General 12/21/21 Rebecca Buck MD [address] [place] [address] [address] [place] [address] Surgeon Urology 06/25/23 Team Status: Inactive Member [...] NOVAK Attending Provider, Referring Provi lupillo Active Roller Hand Relationship Specialty Start Date End Date Kenny Carlos [address] [place] [phone] PCP - General 12/21/21 Rebecca Buck MD [address] [place] [address] Surgeon Urology 06/25/23 Roller Hand Relationship Specialty Start Date End Date Carlos Cavazos [address] [place] [phone] PCP - General 12/21/21 Rebecca Buck MD [address] [place] [address] Surgeon Urology 06/25/23 Roller Hand Relationship Specialty Start Date End Date Carlos Cavazos [address] [place] [phone] PCP - General 12/21/21 Rebecca Buck MD [address] [place] [address] Surgeon Urology 06/25/23 Roller Hand Relationship Specialty Start Date End Date Carlos Cavazos [address] [place] [phone] PCP - General 12/21/21 Rebecca Buck MD [address] [place] [address] Surgeon Urology 06/25/23 Roller Hand Relationship Specialty Start Date End Date Carlos Cavazos [address] [place] [phone] PCP - General 12/21/21 Rebecca Buck MD [address] [facility] [address] [place] [address] Surgeon Urology 06/25/23 Roller Hand Relationship Specialty Start Date End Date Carlos Cavazos [address] [facility] [address] [place] [phone] PCP - General 12/21/21 Rebecca Buck MD [address] [facility] [address] [place] [address] Surgeon Urology 06/25/23 Team Status: Inactive Member Role Status Dates Dr. Monika Staley MD Primary Care Provider Active Start: March 13, 2024 End: March 13, 2024 [facility] Attending Provider Active Start: March [...] March 17, 2024 End: March 17, 2024 [facility] Attending Provider Active Start: March 17, 2024 End: March 17, 2024 Team Status: Inactive Member Role Status Dates Dr. Monika Staley MD Primary Care Provider Active Start: March 18, 2024 End: March 18, 2024 [facility] Attending Provider Active Start: March [...] March 20, 2024 End: March 20, 2024 [facility] Attending Provider Active Start: March [...] March 27, 2024 End: March 27, 2024 [facility] Attending Provider Active Start: March [...] Care Provider Active Start: July 07, 2024 [facility] Attending Provider Active Start: July [...] September 30, 2024 End: September 30, 2024 Kraon NOVAK MD Attending Provider Active Start: September [...] Status: Active Member Role/Relationship Status Dates Dr. Moinka Staley MD Primary [...] September 22, 2024 End: September 22, 2024 Team Status: Active Member Role/Relationship Status Dates Dr. Monika Staley MD Primary care physician Activ e Team Status: Active Member Role/Relationship Status Dates Dr. Monika Staley MD Primary care physician Activ e Start: October 09, 2024 Karon NOVAK MD Attending physician Active Start: October 09, 2024 Team Status: Active Member Role/Relationship Status Dates Dr. Monika Staley MD Primary care physician Activ e Start: October 13, 2024 Carlos NOVAK Attending physician Active St art: October 13, 2024 Team Status: Active Member Role/Relationship Status Dates Dr. Monika Staley MD Primary care physician Activ e Start: October 16, 2024 Karon NOVAK MD Attending physician Active Start: October 16, 2024 Team Status: Inactive Member Role/Relationship Status Dates Dr. Monika Staley MD Primary care physician Activ e Start: October 20, 2024 End: October 20, 2024 Karon NOVAK MD Attending physician Active Start: October 20, 2024 End: October 20, 2024 Karon NOVAK MD Referring Provider Active Start: October 20, 2024 End: October 20, 2024 Team Status: Active Member Role/Relationship Status Dates Dr. Monika Staley MD Primary care physician Activ e Start: October 23, 2024 Karon NOVKA MD Attending physician Active Start: October 23, 2024 Team Status: Active Member Role/Relationship Status Dates Dr. Monika Staley MD Primary care physician Activ e Start: October 27, 2024 Karon NOVAK MD Attending physician Active Start: October 27, 2024 Karon NOVAK MD Referring Provider Active Start: October 27, 2024 Team Status: Active Member Role/Relationship Status Dates Dr. Monika Staley MD Primary care physician Activ e Start: October 30, 2024 Karon NOVAK MD Attending physician Active Start: October 30, 2024 Team Status: Active Member Role/Relationship Status Dates Dr. Monika Staley MD Primary care physician Activ e Start: November 03, 2024 Carlos NOVAK Attending physician Active St art: November 03, 2024 Team Status: Active Member Role/Relationship Status Dates Dr. Monika Staley MD Primary care physician Activ e Start: November 06, 2024 Karon NOVAK MD Attending physician Active Start: November 06, 2024 Karon NOVAK MD Referring Provider Active Start: November 06, 2024 Team Status: Active Member Role/Relationship Status Dates Dr. Monika Staley MD Primary care physician Activ e Start: November 10, 2024 Karon NOVAK MD Attending physician Active Start: November 10, 2024 Karon NOVAK MD Referring Provider Active Start: November 10, 2024 Team Status: Active Member Role/Relationship Status Dates Dr. Monika Staley MD Primary care physician Activ e Start: November 13, 2024 Karon NOVAK MD Attending physician Active Start: November 13, 2024 Team Status: Active Member Role/Relationship Status Dates Dr. Monika Staley MD Primary care physician Activ e Start: November 17, 2024 Karon NOVAK MD Attending physician Active Start: November 17, 2024 Team Status: Active Member Role/Relationship Status Dates Dr. Monika Staley MD Primary care physician Activ e Start: November 20, 2024 Karon NOVAK MD Attending physician Active Start: November 20, 2024 Team Status: Active Member Role/Relationship Status Dates Dr. Monika Staley MD Primary care physician Activ e Start: November 24, 2024 Karon NOVAK MD Attending physician Active Start: November 24, 2024 Team Status: Active Member Role/Relationship Status Dates Dr. Monika Staley MD Primary care physician Activ e Start: November 27, 2024 Karon NOVAK MD Attending physician Active Start: November 27, 2024 Team Status: Active Member Role/Relationship Status Dates Dr. Monika Staley MD Primary care physician Activ e Start: November 28, 2024 Carlos NOVAK Attending physician Active St art: November 28, 2024 Team Status: Active Member Role/Relationship Status Dates Dr. Monika Staley MD Primary care physician Activ e Start: December 01, 2024 Carlos NOVAK Attending physician Active St art: December 01, 2024 Team Status: Active Member Role/Relationship Status Dates Dr. Monika Staley MD Primary care physician Activ e Start: December 02, 2024 Karon NOVAK MD Attending physician Active Start: December 02, 2024 Karon NOVAK MD Referring Provider Active Start: December 02, 2024 Team Status: Active Member Role/Relationship Status Dates Dr. Monika Staley MD Primary care physician Activ e Start: December 04, 2024 Karon NOVAK MD Attending physician Active Start: December 04, 2024 Team Status: Active Member Role/Relationship Status Dates Dr. Monika Staley MD Primary care physician Activ e Start: December 08, 2024 Karon NOVAK MD Attending physician Active Start: December 08, 2024 Team Status: Active Member Role/Relationship Status Dates Dr. Monika Staley MD Primary care physician Activ e Start: December 11, 2024 Carlos NOVAK Attending physician Active St art: December 11, 2024 Team Status: Active Member Role/Relationship Status Dates Dr. Monika Staley MD Primary care physician Activ e Start: December 15, 2024 Karon NOVAK MD Attending physician Active Start: December 15, 2024 Karon NOVAK MD Referring Provider Active Start: December 15, 2024 Team Status: Active Member Role/Relationship Status Dates Dr. Monika Stlaey MD Primary care physician Activ e Start: December 18, 2024 Karon NOVAK MD Attending physician Active Start: December 18, 2024 Team Status: Active Member Role/Relationship Status Dates Dr. Monika Staley MD Primary care physician Activ e Start: December 22, 2024 Karon NOVAK MD Attending physician Active Start: December 22, 2024 Karon NOVAK MD Referring Provider Active Start: December 22, 2024 Team Status: Active Member Role/Relationship Status Dates Dr. Monika Staley MD Primary care physician Activ e Start: December 24, 2024 Carlos NOVAK Attending physician Active St art: December 24, 2024 Team Status: Active Member Role/Relationship Status Dates Dr. Monika Staley MD Primary care physician Activ e Start: December 25, 2024 Karon NOVAK MD Attending physician Active Start: December 25, 2024 Team Status: Active Member Role/Relationship Status Dates Dr. Monika Staley MD Primary care physician Activ e Start: December 26, 2024 Karon NOVAK MD Attending physician Active Start: December 26, 2024 Team Status: Active Member Role/Relationship Status Dates Dr. Monika Staley MD Primary care physician Activ e Start: December 29, 2024 Carlos NOVAK Attending physician Active St art: December 29, 2024 Team Status: Active Member Role/Relationship Status Dates Dr. Monika Staley MD Primary care physician Activ e Start: January 01, 2025 Karon NOVAK MD Attending physician Active Start: January 01, 2025 Team Status: Active Member Role/Relationship Status Dates Dr. Monika Staley MD Primary care physician Activ e Start: January 06, 2025 Karon NOVAK MD Attending physician Active Start: January 06, 2025 Team Status: Active Member Role/Relationship Status Dates Dr. Monika Staley MD Primary care physician Activ e Start: January 08, 2025 Karon NOVAK MD Attending physician Active Start: January 08, 2025 Team Status: Active Member Role/Relationship Status Dates Dr. Monika Staley MD Primary care physician Activ e Start: January 12, 2025 Karon NOVAK MD Attending physician Active Start: January 12, 2025 Karon NOVAK MD Referring Provider Active Start: January 12, 2025 Team Status: Active Member Role/Relationship Status Dates Dr. Monika Staley MD Primary care physician Activ e Start: January 15, 2025 Karon NOVAK MD Attending physician Active Start: January 15, 2025 Team Status: Active Member Role/Relationship Status Dates Dr. Monika Staley MD Primary care physician Activ e Start: January 19, 2025 Carlos NOVAK Attending physician Active St art: January 19, 2025 Team Status: Active Member Role/Relationship Status Dates Dr. Monika Staley MD Primary care physician Activ e Start: January 22, 2025 Karon NOVAK MD Attending physician Active Start: January 22, 2025 Team Status: Active Member Role/Relationship Status Dates Dr. Monika Staley MD Primary care physician Activ e Start: January 26, 2025 Karon NOVAK MD Attending physician Active Start: January 26, 2025 Karon NOVAK MD Referring Provider Active Start: January 26, 2025 Team Status: Active Member Role/Relationship Status Dates Dr. Monika Staley MD Primary care physician Activ e Start: January 29, 2025 Karon NOVAK MD Attending physician Active Start: January 29, 2025 Team Status: Active Member Role/Relationship Status Dates Dr. Monika Staley MD Primary care physician Activ e Start: February 02, 2025 Karon NOVAK MD Attending physician Active Start: February 02, 2025 Team Status: Active Member Role/Relationship Status Dates Dr. Monika Staley MD Primary care physician Activ e Start: February 05, 2025 Karon NOVAK MD Attending physician Active Start: February 05, 2025 Team Status: Inactive Member Role/Relationship Status Dates Dr. Monika Staley MD Primary care physician Activ e Start: October 30, 2024 End: October 30, 2024 Karon NOVAK MD Attending physician Active Start: October 30, 2024 End: October 30, 2024 Team Status: Inactive Member Role/Relationship Status Dates Dr. Monika Staley MD Primary care physician Activ e Start: November 03, 2024 End: November 03, 2024 Carlos NOVAK Attending physician Active St art: November 03, 2024 End: November 03, 2024 Ordered Prescriptions (unrec ognized section and [...] Ashby, AYUSH)214 (Stopped - Provider: Lisa Ashby, RN) 1026 (New Bag - Provider: Fabi Subramanian, RN)1150 (Stopped - Provider: Fabi Subramanian, RN)2100 (Due) [...] RN) 1027 (Given - Provider: Fabi Subramanian, RN)2100 (Due) warfarin (COUMADIN) tablet 7.5 mg [...] BE BASED ON THE PRIMARY CLINICAL RECORDS. [facility] [employer] [facility]. provides no warranty or guarantee of the accuracy or completeness of information in this document.
[2025-02-23 08:20] LABS: Prothrombin Time (Protime)PT. 23.5 SECONDS (11.7-14.9)
== END ==
LOC: OLS.SANC 05:00
PROVIDERS: PCP General Practice
DX: Z79.01 Long term (current) use of 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 (principal)
CPT/HCPCS: 36415; 85610

== ENCOUNTER → 2025-02-26 05:00 | Outpatient (REF) | payer MEDICARE, MEDICAID, SELFPAY ==
--- OUTSIDE RECORDS SUMMARY | 2025-02-26 04:47 | XMS RPT_ITS | CCD ---
Author Organization [facility] Care Team Providers Care Marketing Analytics Manager Name Role Phone Mateus Burris Primary [...] Attending Unavailable Kenny, Carlos Primary Care Provider [phone] Quinn VALLADARES, Rebecca L Unavailable Quinn VALLADARES, Rebecca L Unavailable REBECCA BUCK Attending Unavailable REBECCA BUCK Referring Unavailable CARLOS CAVAZOS Primary Care Unavailable RBEECCA BUCK Attending Unavailable KENNY, CARLOS Primary Care Unavailable REBECCA BUCK Attending Unavailable KENNY, CARLOS Primary Care Unavailable Luís VALLADARES, Dr. Monika Horner Primary Care Provider [facility] Attending Provider [phone] Carlos Nelson Attending Provider Jonh Pascual MD, [...] Attending Provider Unava ilCarlos Anglin Attending Provider Daniab ish Staley MD, Dr. Monika Horner Primary Care Provider Andressa VALLADARES, Dr. Calderon Attending Provider Jany Staley MD, Dr. Monika Horner Primary Care Provider Carlos Nelson Attending Provider Unavailab ish Staley MD, Dr. Monika Horner Primary Care Physician Karon Corrales MD Attending Physician Unav ailable Carlos Nelson Attending Physician Dania Karon Miller MD Referring Provider Unava ilCarlos Anglin Attending Unavailable Luís, Shiela Primary Care Unavailable [...] OLSKaron Attending Unavail able Mukkamalla OLS, Karon Attending [...] Unavailable Crisostomo OLS, Kvng Attending Unavailable Luís, Shilea Primary Care Unavailable Crisostomo OLS, Kvng Attending Unavailable Luís, Shiela Primary Care Unavailable Katsaros OLS, Peter Attending Unavailable Luís, Shiela Primary Care Unavailable Crisostomo OLS, Elizabethet Attending Unavailable Luís, Shiela Primary Care Unavailable Luís, Shiela Primary Care Unavailable [place] OLS, Karon Attending Unavail able Katsaros OLS, Carlos Attending Unavailable Luís, Shiela Primary Care Unavailable Katsaros OLS, Peter Attending Unavailable Luís, Shiela Primary Care Unavailable [place] OLS, Karon Attending Unavail able Luís, Shiela Primary Care Unavailable Luís, Shiela Primary Care Unavailable [place] OLS, Melindaer Attending Unavail able Katsaros OLS, Peter Attending [...] Katsaros OLS, Carlos Attending Unavailable [place]alla OLS, Mahaveer Referring Unavail [...] Luís, Shiela Primary Care Unavailable [facility] [place] Attending Unavai lable Luís, Shiela Primary Care Unavailable [place] OLS, Mahaveer Referring Unavail able [place]alla OLS, Mahaveer Attending Unavail able Luís, Shiela Primary Care Unavailable [facility] [place] Attending Unavai lable Luís, Shiela Primary Care Unavailable Crisostomo OLS, Avisjeet Attending Unavailable Luís, Shiela Primary Care Unavailable Katsaros OLS, Carlos Attending Unavailable Luís, Shiela Primary Care Unavailable Crisostomo OLS, Vicentebaljeet Attending Unavailable Crisostomo OLS, Babbaljeet Referring Unavailable Luís, Shiela Primary Care Unavailable [facility] [place] Attending Unavai lable Luís, Shiela Primary Care Unavailable Katsaros OLS, Carlos Attending Unavailable Luís, Shiela Primary Care Unavailable Crisostomo OLS, Vicentebaljeet Attending Unavailable Crisostomo OLS, Babbaljeet Referring Unavailable Luís, Shiela Primary Care Unavailable Crisostomo OLS, Vicentebaljeet Attending Unavailable Luís, Shiela Primary Care Unavailable [facility] [place] Attending Unavai lable Luís, Shiela Primary Care [...] Luís, Shiela Primary Care Unavailable [facility] [place] Attending Unavai lable Luís, Shiela Primary Care Unavailable [facility] [place] Attending Unavai lable Líus, Shiela Primary Care Unavailable Crisostomo OLS, Babbaljeet [...] Unavailable [place] OLS, Carlaaveer Attending Unavail able [facility] [place] Attending Unavai lable Luís, Shiela Primary Care Unavailable Crisostomo OLSVicentebalgerson Attending Unavailable Luís, Shiela Primary Care Unavailable [facility] [place] Attending Unavai lable Luís, Shiela Primary Care [...] Luís, Shiela Primary Care Unavailable [facility] [place] Attending Unavai lable Luís, Shiela Primary Care Unavailable [place] OLS, Mahaveer Attending Unavail able LuísMonika bruce Primary [facility] Unavailable Karon Shah Attending Unavail able LuísMonika [facility] Unavailable Allergies Allergy Classification Reported Allergen(s) Allergy Type Date of Onset Reaction(s) Facility (13 sources) [facility]: (15 sources) Alcohol Propensity to adverse reactions to drug 3 Rash, Hives, Other: See Comments, Other [facility] Work Phone: (1 source) Latex Drug Allergy 0 Rash [facility] (8 sources) Cortisone Drug Allergy 2 [facility] (7 sources) Latex Allergy to substance 0 Rash [facility] Medications Current Medications Medication Drug Class(es) Dates Sig (Normalized) Sig (Original) Acetaminophen (10 sources) Start: 10-21-2021 acetaminophen (TYLENOL) tablet 650 mg Start: 09-14-2021 acetaminophen (TYLENOL) 325 MG tablet 650 mg every 6 hours as needed 0 09/14/2021 Active take 2 tablets by [facility] eight hours acetaminophen (TYLENOL) [...] Start: 11-01-2021 take 1 capsule by mo [facility] once daily tamsulosin (FLOMAX) 0.4 MG capsule [...] on above: Take 1 capsule by mo [facility] three times daily. Complete Multi-Vitamin CHEW (4 [...] Units subcutaneously with meals and at bedtime. Malay Panax Ginseng 100 MG CAPS (8 sources) Malay Panax Ginseng 100 MG CAPS Quantity: 0 Refills: 0 Ordered: 06-Nov-2019 DO Active Malay Panax Ginseng 100 MG Oral Capsule (4 sources) Malay Panax Ginseng 100 MG Oral Capsule Refills: 0 Active Malay Panax Gin mayuri 100 MG Oral Capsule Refills: 0 DO Active Malay Panax Ginseng 100 MG Oral Capsule (2 sources) Malay Panax Gin mayuri 100 MG Oral Capsule [...] Comment on above: Take 1 tablet by [facility] three times daily as needed. methylPREDNISolone (1 [...] once daily. Pentoxifylline (1 source) Blood Viscosity Furniture Manager PENTOXIFYLLINE ORAL Take by mouth. 0 Active Comment on above: Take by mouth. petrolatum 0.41 mg/mg topical ointment (1 source) Start : 08-20 white petrolatum (AQUAPHOR) 41 % topical ointment Apply to affected area once daily. 0 08/20/2021 Active Comment on above: Apply to affected ar ea once daily. 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] Onset: 10-21-2021 Episodic Other aftercare (1 source) Drug therapy finding; Translations: [[facility] (current) use of anticoagulants] Episodic Other aftercare (2 sources) Other manager long term care (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; Translations: [Other manager long term care (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] Onset: 02-13-2025 Episodic Other circulatory disease (2 sources) Presence [...] Translations: [Anemia, unspecified] Onset: 06-14-2021 06-14-2021 Episodic Fluid and electrolyte disorders (3 sources) [...] source) Retroperitoneal hematoma; Translations: [Hemoperitoneum] Onset: 06-11-2021 2 Episodic Other gastrointestinal disorders (1 source) Dysphagia; [...] Coag (PPP) [Relative time] 2.0 {INR} Normal [facility] Comment on above: Order Comment: 411.2 Performed By: #### L 300.3900 ####[facility] [address] [place], [address] PT Coag (PPP) [Time] 23.5 s High 11.7-14.9 [facility] Comment on above: Order Comment: 411.2 Performed By: #### L 300.3900 ####[facility] [address] [place], [address] Prothrombin Time w/INRon INR Coag (PPP) [Relative time] 1.9 {INR} Normal [facility] Comment on above: Order Comment: 411.2 Performed By: #### L 300.3900 ####[facility] [address] [place], [address] PT Coag (PPP) [Time] 21.8 s High 11.7-14.9 [facility] Comment on above: Order Comment: 411.2 Performed By: #### L 300.3900 ####[facility] [address] [place], [address] Prothrombin Time w/INRon INR Coag (PPP) [Relative time] 1.5 {INR} Normal [facility] Comment on above: Order Comment: 411.2 Performed By: #### L 300.3900 ####[facility] [address] [place], [address] PT Coag (PPP) [Time] 18.6 s High 11.7-14.9 [facility] Comment on above: Order Comment: 411.2 Performed By: #### L 300.3900 ####[facility] [address] [place], [address] Prothrombin Time w/INRon INR Coag (PPP) [Relative time] 2.5 {INR} Normal [facility] Comment on above: Order Comment: 411.2 Performed By: #### L 300.3900 ####[facility] [address] [place], [address] PT Coag (PPP) [Time] 27.5 s High 11.7-14.9 [facility] Comment on above: Order Comment: 411.2 Performed By: #### L 300.3900 ####[facility] [address] [place], [address] Prothrombin Time w/INRon INR Coag (PPP) [Relative time] 2.5 {INR} Normal [facility] Comment on above: Order Comment: 411-2 Performed By: #### L 300.3900 ####[facility] [address] [place], [address] PT Coag (PPP) [Time] 27.2 s High 11.7-14.9 [facility] Comment on above: Order Comment: 411-2 Performed By: #### L 300.3900 ####[facility] [address] [place], [address] INR Normal [facility] Comment on above: Order Comment: 411.2 Result Comment: MISS ING TUBE Performed By: #### L 300.3900 ####[facility] [address] [place], [address] PROTIME Normal 11.7-14.9 [facility] Comment on above: Order Comment: 411.2 Result Comment: MISS ING TUBE Performed By: #### L 300.3900 ####[facility] [address] [place], [place], [phone] International normalized rat io (INR) calculationOrdered By: Karon Corrales on 02-05-2025 INR Coag (Bld) [Relative time] 2.5 {INR} [facility] Prothrombin Time w/INRon INR Coag (PPP) [Relative time] 2.5 {INR} Normal [facility] Comment on above: Order Comment: 411.2 Performed By: #### L 300.3900 ####[facility] [address] [place], [address] PT Coag (PPP) [Time] 27.6 s High 11.7-14.9 [facility] Comment on above: Order Comment: 411.2 Performed By: #### L 300.3900 ####[facility] [address] [place], [address] Prothrombin timeOrdered By: Karon Corrales on 02-05-2025 PT Coag (PPP) [Time] 27.6 s High 11.7-14.9 [facility] International normalized rat io (INR) calculationOrdered By: Karon Corrales on 02-02-2025 INR Coag (Bld) [Relative time] 2.4 {INR} [facility] Prothrombin Time w/INRon INR Coag (PPP) [Relative time] 2.4 {INR} Normal [facility] Comment on above: Order Comment: 411.2 Performed By: #### L 300.3900 ####[facility] [address] [place], [address] PT Coag (PPP) [Time] 26.8 s High 11.7-14.9 [facility] Comment on above: Order Comment: 411.2 Performed By: #### L 300.3900 ####[facility] [address] [place], [address] Prothrombin timeOrdered By: Karon Corrales on 02-02-2025 PT Coag (PPP) [Time] 26.8 s High 11.7-14.9 [facility] International normalized rat io (INR) calculationOrdered By: Karon Corrales on 01-29-2025 INR Coag (Bld) [Relative time] 2.7 {INR} [facility] Prothrombin Time w/INRon INR Coag (PPP) [Relative time] 2.7 {INR} Normal [facility] Comment on above: Performed By: #### L 300.3900 ####[facility] [address] [place], [place], [phone] PT Coag (PPP) [Time] 29.1 s High 11.7-14.9 [facility] Comment on above: Performed By: #### L 300.3900 ####[facility] [address] [place], [place], [phone] Prothrombin timeOrdered By: Karon Corrales on 01-29-2025 PT Coag (PPP) [Time] 29.1 s High 11.7-14.9 [facility] International normalized rat io (INR) calculationOrdered By: Karon Corrales on 01-26-2025 INR Coag (Bld) [Relative time] 2.0 {INR} [facility] Prothrombin Time w/INRon INR Coag (PPP) [Relative time] 2.0 {INR} Normal [facility] Comment on above: Order Comment: 411.2 Performed By: #### L 300.3900 ####[facility] [address] [place], [place], [phone] PT Coag (PPP) [Time] 23.1 s High 11.7-14.9 [facility] Comment on above: Order Comment: 411.2 Performed By: #### L 300.3900 ####[facility] [address] [place], [address] Prothrombin timeOrdered By: Karon Corrales on 01-26-2025 PT Coag (PPP) [Time] 23.1 s High 11.7-14.9 [facility] International normalized rat io (INR) calculationOrdered By: Karon Corrales on 01-22-2025 INR Coag (Bld) [Relative time] 2.4 {INR} [facility] Prothrombin Time w/INRon INR Coag (PPP) [Relative time] 2.4 {INR} Normal [facility] Comment on above: Order Comment: 411.2 Performed By: #### L 300.3900 ####[facility] [address] [place], [address] PT Coag (PPP) [Time] 26.6 s High 11.7-14.9 [facility] Comment on above: Order Comment: 411.2 Performed By: #### L 300.3900 ####[facility] [address] [place], [address] Prothrombin timeOrdered By: Karon Corrales on 01-22-2025 PT Coag (PPP) [Time] 26.6 s High 11.7-14.9 [facility] International normalized rat io (INR) calculationOrdered By: Carlos Cavazos on 01-19-2025 INR Coag (Bld) [Relative time] 2.7 {INR} [facility] Prothrombin Time w/INRon INR Coag (PPP) [Relative time] 2.7 {INR} Normal [facility] Comment on above: Order Comment: 411-2 Performed By: #### L 300.3900 ####[facility] [address] [place], [address] PT Coag (PPP) [Time] 29.7 s High 11.7-14.9 [facility] Comment on above: Order Comment: 411-2 Performed By: #### L 300.3900 ####[facility] [address] [place], [place], [address] Prothrombin timeOrdered By: Carlos Cavazos on 01-19-2025 PT Coag (PPP) [Time] 29.7 s High 11.7-14.9 [facility] International normalized rat io (INR) calculationOrdered By: Karon Corrales on 01-15-2025 INR Coag (Bld) [Relative time] 2.4 {INR} [facility] Prothrombin Time w/INRon INR Coag (PPP) [Relative time] 2.4 {INR} Normal [facility] Comment on above: Order Comment: 411.1 Performed By: #### L 300.3900 ####[facility] [address] [place], [place], [address] PT Coag (PPP) [Time] 26.6 s High 11.7-14.9 [facility] Comment on above: Order Comment: 411.1 Performed By: #### L 300.3900 ####[facility] [address] [place], [place], [address] Prothrombin timeOrdered By: Karon Corrales on 01-15-2025 PT Coag (PPP) [Time] 26.6 s High 11.7-14.9 [facility] KEPPRA (LEVETIRACETAM)on KEPPRA 30.1 ug/mL Normal 10.0-40.0 [facility] Comment on above: Order Comment: 411.1 Result Comment: Perf ormed at: - [facility] [id number] Director: Alpesh Vázquez MD, Phone: [phone] Performed By: #### L 300.3900, L3310.0000 ####[facility] [address] [place], [place], [address] International normalized rat io (INR) calculationOrdered By: Karon Corrales on 01-12-2025 INR Coag (Bld) [Relative time] 2.3 {INR} [facility] LevetiracetamOrdered By: Carla Corrales on 01-12-2025 levETIRAcetam [Mass/Vol] 30.1 ug/mL 10.0-40.0 [facility] Comment on above: Performed at: [facility] - [facility] [address] [id number] Director: Alpesh Vázquez MD, Phone: [phone] Prothrombin Time w/INRon INR Coag (PPP) [Relative time] 2.3 {INR} Normal [facility] Comment on above: Order Comment: 411.1 Performed By: #### L 300.3900, L3310.0000 ####[facility] [address] [place], [place], [address] PT Coag (PPP) [Time] 26.1 s High 11.7-14.9 [facility] Comment on above: Order Comment: 411.1 Performed By: #### L 300.3900, L3310.0000 ####[facility] [address] [place], [place], [address] Prothrombin timeOrdered By: Karon Corrales on 01-12-2025 PT Coag (PPP) [Time] 26.1 s High 11.7-14.9 [facility] KEPPRA (LEVETIRACETAM)on KEPPRA 27.6 ug/mL Normal 10.0-40.0 [facility] Comment on above: Order Comment: 411.1 Result Comment: Perf ormed at: [facility] - [facility] [address] [id number] Director: Alpesh Vázquez MD, Phone: [phone] Performed By: #### L 3310.0000, L300.3900 ####[facility] [address] [place], [place], [address] International normalized rat io (INR) calculationOrdered By: Karon Corrales on 01-08-2025 INR Coag (Bld) [Relative time] 2.2 {INR} [facility] Prothrombin Time w/INRon INR Coag (PPP) [Relative time] 2.2 {INR} Normal [facility] Comment on above: Order Comment: 411.1 Performed By: #### L 300.3900 ####[facility] [address] [place], [address] PT Coag (PPP) [Time] 24.5 s High 11.7-14.9 [facility] Comment on above: Order Comment: 411.1 Performed By: #### L 300.3900 ####[facility] [address] [place], [place], [address] Prothrombin timeOrdered By: Karon Corrales on 01-08-2025 PT Coag (PPP) [Time] 24.5 s High 11.7-14.9 [facility] International normalized rat io (INR) calculationOrdered By: Karon Corrales on 01-06-2025 INR Coag (Bld) [Relative time] 3.2 {INR} [facility] LevetiracetamOrdered By: Carla Corrales on 01-06-2025 levETIRAcetam [Mass/Vol] 27.6 ug/mL 10.0-40.0 [facility] Comment on above: Performed at: [address] [id number] Director: Alpesh Vázquez MD, Phone: [phone] Prothrombin Time w/INRon INR Coag (PPP) [Relative time] 3.2 {INR} Normal [facility] Comment on above: Order Comment: 411.1 Performed By: #### L 3310.0000, L300.3900 ####[facility] [address] [place], [place], [id number] PT Coag (PPP) [Time] 33.1 s High 11.7-14.9 [facility] Comment on above: Order Comment: 411.1 Performed By: #### L 3310.0000, L300.3900 ####[facility] [address] [place], [place], [address] Prothrombin timeOrdered By: Karon Corrales on 01-06-2025 PT Coag (PPP) [Time] 33.1 s High 11.7-14.9 [facility] International normalized rat io (INR) calculationOrdered By: Karon Corrales on 01-01-2025 INR Coag (Bld) [Relative time] 2.7 {INR} [facility] Prothrombin Time w/INRon INR Coag (PPP) [Relative time] 2.7 {INR} Normal [facility] Comment on above: Order Comment: 411.1 Performed By: #### L 300.3900 ####[facility] [address] [place], [place], [address] Prothrombin timeOrdered By: Karon Corrales on 01-01-2025 PT Coag (PPP) [Time] 29.1 s High 11.7-14.9 [facility] Comment on above: Order Comment: 411.1 Performed By: #### L 300.3900 ####[facility] [address] [place], [place], [address] KEPPRA (LEVETIRACETAM)on KEPPRA 31.8 ug/mL Normal 10.0-40.0 [facility] Comment on above: Order Comment: 411-1 Result Comment: Perf ormed at: - [facility] [id number] Director: Alpesh Vázquez MD, Phone: [phone] Performed By: #### L 3310.0000, L327.3900 ####[facility] [address] [place], [place], [address] International normalized rat io (INR) calculationOrdered By: Carlos Cavazos on 12-29-2024 INR Coag (Bld) [Relative time] 3.3 {INR} [facility] KEPPRA (LEVETIRACETAM)on KEPPRA 33.3 ug/mL Normal 10.0-40.0 [facility] Comment on above: Order Comment: 411.1 Result Comment: Perf ormed at: [employer] [facility] [address] [id number] Director: Alpesh Vázquez MD, Phone: [phone] Performed By: #### L 3310.0000 ####[facility] [address] [place], [address] LevetiracetamOrdered By: Ted Cavazos on 12-29-2024 levETIRAcetam [Mass/Vol] 31.8 ug/mL 10.0-40.0 [facility] Comment on above: Performed at: [facility] [employer] [address] [id number] Director: Alpesh Vázquez MD, Phone: [phone] Prothrombin Time w/INRon INR Coag (PPP) [Relative time] 3.3 {INR} Normal [facility] Comment on above: Order Comment: 411-1 Performed By: #### L 3310.0000, L300.3900 ####[facility] [address] [place], [address] Prothrombin timeOrdered By: Carlos Cavazos on 12-29-2024 PT Coag (PPP) [Time] 34.0 s High 11.7-14.9 [facility] Comment on above: Order Comment: 411-1 Performed By: #### L 3310.0000, L300.3900 ####[facility] [address] [place], [address] LevetiracetamOrdered By: Carla Corrales on 12-26-2024 levETIRAcetam [Mass/Vol] 33.3 ug/mL 10.0-40.0 [facility] Comment on above: Performed at: - [address] [id number] Director: Alpesh Vázquez MD, Phone: [phone] International normalized rat io (INR) calculationOrdered By: Karon Corrales on 12-25-2024 INR Coag (Bld) [Relative time] 2.8 {INR} [facility] Prothrombin Time w/INRon INR Coag (PPP) [Relative time] 2.8 {INR} Normal [facility] Comment on above: Order Comment: 411.1 Performed By: #### L 300.3900 ####[facility] [address] [place], [address] Prothrombin timeOrdered By: Karon Corrales on 12-25-2024 PT Coag (PPP) [Time] 30.0 s High 11.7-14.9 [facility] Comment on above: Order Comment: 411.1 Performed By: #### L 300.3900 ####[facility] [address] [place], [address] Anion gap in Serum or Plasma Ordered By: Carlos Cavazos on 12-24-2024 Anion gap [Moles/Vol] 13 mmol/L 09-18 [facility] BUN/creatinine ratioOrdered By: Carlos Cavazos on 12-24-2024 Urea nitrogen/Creatinine [Mass ratio] 19.2 mg/mg 02-23 [facility] Basic Metabolic Profile (BMP )on 12-24-2024 BUN/CRE 19.2 RATIO Normal 02-23 [facility] Comment on above: Order Comment: 411-1 Performed By: #### L 500.2500, L100.0500 ####[facility] [address] [place], [address] Calcium [Mass/Vol] 8.8 mg/dL Normal 7.6-11.0 [facility] Comment on above: Order Comment: 411-1 Performed By: #### L 500.2500, L100.0500 ####[facility] [address] [place], [address] Chloride [Moles/Vol] 103 mmol/L Normal 98-108 [facility] Comment on above: Order Comment: 411-1 Performed By: #### L 500.2500, L100.0500 ####[facility] [address] [place], [address] CO2 [Moles/Vol] 23.7 mmol/L Normal 21.0-32.0 [facility] Comment on above: Order Comment: 411-1 Performed By: #### L 500.2500, L100.0500 ####[facility] [address] [place], [address] Creatinine [Mass/Vol] 0.82 mg/dL Normal 0.70-1.20 [facility] Comment on above: Order Comment: 411-1 Performed By: #### L 500.2500, L100.0500 ####[facility] [address] [place], [address] GAP 13 Normal 5-15 [facility] Comment on above: Order Comment: 411-1 Performed By: #### L 500.2500, L100.0500 ####[facility] [address] [place], [address] GFR/1.73 sq M.predicted among non-blacks MDRD (S/P/Bld) [Vol rate/Area] 93 mL/min/{1.73_m2} Normal >60 [facility] Comment on above: Order Comment: 411-1 Result Comment: mL/m in/1.73m2 CKD-EPI Creatinine Equation (2020) Performed By: #### L 500.2500, L100.0500 ####[facility] [address] [place], [address] Glucose [Mass/Vol] 88 mg/dL Normal 70-99 [facility] Comment on above: Order Comment: 411-1 Performed By: #### L 500.2500, L100.0500 ####[facility] [address] [place], [address] Potassium [Moles/Vol] 4.2 mmol/L Normal 3.3-5.1 [facility] Comment on above: Order Comment: 411-1 Performed By: #### L 500.2500, L100.0500 ####[facility] [address] [place], [address] Sodium [Moles/Vol] 139 mmol/L Normal 133-145 [facility] Comment on above: Order Comment: 411-1 Performed By: #### L 500.2500, L100.0500 ####[facility] [address] [place], [address] Urea nitrogen [Mass/Vol] 16 mg/dL Normal 4-19 [facility] Comment on above: Order Comment: 411-1 Performed By: #### L 500.2500, L100.0500 ####[facility] [address] [place], [address] CBC-Complete Blood Cnt No Di ffon 12-24-2024 Erythrocyte distribution width (RBC) [Ratio] 15.4 % High 11.6-14.6 [facility] Comment on above: Order Comment: 411-1 Performed By: #### L 500.2500, L100.0500 ####[facility] [address] [place], [address] Hematocrit (Bld) [Volume fraction] 39.8 % Low 40-54 [facility] Comment on above: Order Comment: 411-1 Performed By: #### L 500.2500, L100.0500 ####[facility] [address] [place], [address] Hemoglobin (Bld) [Mass/Vol] 12.4 g/dL Low 13.0-16.5 [facility] Comment on above: Order Comment: 411-1 Performed By: #### L 500.2500, L100.0500 ####[facility] [address] [place], [address] MCH (RBC) [Entitic mass] 26.6 pg Low 27.0-32.0 [facility] Comment on above: Order Comment: 411-1 Performed By: #### L 500.2500, L100.0500 ####[facility] [address] [place], [address] MCHC (RBC) [Mass/Vol] 31.2 g/dL Low 32-36 [facility] Comment on above: Order Comment: 411-1 Performed By: #### L 500.2500, L100.0500 ####[facility] [address] [place], [address] MCV (RBC) [Entitic vol] 85.4 fL Normal 80-94 [facility] Comment on above: Order Comment: 411-1 Performed By: #### L 500.2500, L100.0500 ####[facility] [address] [place], [address] Platelet mean volume (Bld) [Entitic vol] 10.4 fL Normal 6.2-12.0 [facility] Comment on above: Order Comment: 411-1 Performed By: #### L 500.2500, L100.0500 ####[facility] [address] [place], [address] Platelets (Bld) [#/Vol] 290 10*3/uL Normal 150-450 [facility] Comment on above: Order Comment: 411-1 Performed By: #### L 500.2500, L100.0500 ####[facility] [address] [place], [address] RBC (Bld) [#/Vol] 4.66 10*6/uL Normal 4.6-6.2 [facility] Comment on above: Order Comment: 411-1 Performed By: #### L 500.2500, L100.0500 ####[facility] [address] [place], [address] RDW SD 48.1 fl High 35.1-43.9 [facility] Comment on above: Order Comment: 411-1 Performed By: #### L 500.2500, L100.0500 ####[facility] [address] [place], [address] WBC (Bld) [#/Vol] 16.6 10*3/uL High 4.4-11.0 [facility] Comment on above: Order Comment: 411-1 Performed By: #### L 500.2500, L100.0500 ####[facility] [address] [place], [address] Carbon dioxide, total [Moles /volume] in Central venous bloodOrdered By: Carlos Cavazos on 12-24-2024 CO2 [Moles/Vol] 23.7 mmol/L 21.0-32.0 [facility] Chloride assayOrdered By: Sharif Crouch on 12-24-2024 Chloride [Moles/Vol] 103 mmol/L 98-108 [facility] Erythrocyte distribution wid th ratioOrdered By: Carlos Cavazos on 12-24-2024 Erythrocyte distribution width (RBC) [Ratio] 15.4 % High 11.6-14.6 [facility] Erythrocyte distribution wid th standard deviationOrdered By: Carlos Cavazos on 12-24-2024 Erythrocyte distribution width (RBC) [Ratio] 48.1 fl High 35.1-43.9 [facility] Glomerular filtration rate ( GFR) estimation/1.73 sq m using serum, plasma, or whole bOrdered By: Carlos Cavazos on 12-24-2024 GFR/1.73 sq M.predicted among non-blacks MDRD (S/P/Bld) [Vol rate/Area] 93 mL/min/{1.73_m2} >60 [facility] Comment on above: mL/min/1.73m2 CKD-EP I Creatinine Equation (2020) Hematocrit Auto (Bld) [Volum e fraction]Ordered By: Carlos Cavazos on 12-24-2024 Hematocrit (Bld) [Volume fraction] 39.8 % Low 40-54 [facility] Hemoglobin measurementOrdere d By: Carlos Cavazos on 12-24-2024 Hemoglobin (Bld) [Mass/Vol] 12.4 g/dL Low 13.0-16.5 [facility] MCV (mean corpuscular volume ) determinationOrdered By: Carlos Cavazos on 12-24-2024 MCV (RBC) [Entitic vol] 85.4 fL 80-94 [facility] Mean corpuscular hemoglobin (MCH) determinationOrdered By: Carlos Cavazos on 12-24-2024 MCH (RBC) [Entitic mass] 26.6 pg Low 27.0-32.0 [facility] Mean corpuscular hemoglobin concentration (MCHC) determinationOrdered By: Carlos Cavazos on 12-24-2024 MCHC (RBC) [Mass/Vol] 31.2 g/dL Low 32-36 [facility] Mean platelet volume determi nationOrdered By: Carlos Cavazos on 12-24-2024 Platelet mean volume (Bld) [Entitic vol] 10.4 fL 6.2-12.0 [facility] Platelet countOrdered By: Sharif Crouch on 12-24-2024 Platelets (Bld) [#/Vol] 290 10*3/uL 150-450 [facility] Potassium measurement (mass/ volume)Ordered By: Carlos Cavazos on 12-24-2024 Potassium (Unsp spec) [Mass/Vol] 4.2 mmol/L 3.3-5.1 [facility] RBC Auto (Bld) [#/Vol]Ordere d By: Carlos Cavazos on 12-24-2024 RBC (Bld) [#/Vol] 4.66 10*6/uL 4.6-6.2 [facility] Serum creatinine measurement (mass/volume)Ordered By: Carlos Cavazos on 12-24-2024 Creatinine [Mass/Vol] 0.82 mg/dL 0.70-1.20 [facility] Serum glucose measurement (m ass/volume)Ordered By: Carlos Cavazos on 12-24-2024 Glucose [Mass/Vol] 88 mg/dL 70-99 [facility] Serum or plasma calcium oral urement (mass/volume)Ordered By: Carlos Cavazos on 12-24-2024 Calcium [Mass/Vol] 8.8 mg/dL 7.6-11.0 [facility] Serum or plasma urea nitroge n measurement (mass/volume)Ordered By: Carlos Cavazos on 12-24-2024 Urea nitrogen [Mass/Vol] 16 mg/dL 4-19 [facility] Sodium levelOrdered By: Moe Cavazos on 12-24-2024 Sodium [Moles/Vol] 139 mmol/L 133-145 [facility] White blood cell (WBC) count Ordered By: Carlos Cavazos on 12-24-2024 WBC (Bld) [#/Vol] 16.6 10*3/uL High 4.4-11.0 [facility] International normalized rat io (INR) calculationOrdered By: Karon Corrales on 12-22-2024 INR Coag (Bld) [Relative time] 2.6 {INR} [facility] Prothrombin Time w/INRon INR Coag (PPP) [Relative time] 2.6 {INR} Normal [facility] Comment on above: Order Comment: 411.1 Performed By: #### L 672.3905 ####[facility] [address] [place], [place], [phone] PT Coag (PPP) [Time] 28.8 s High 11.7-14.9 [facility] Comment on above: Order Comment: 411.1 Performed By: #### L 300.3900 ####[facility] [address] [place], [place], [phone] Prothrombin timeOrdered By: Karon Corrales on 12-22-2024 PT Coag (PPP) [Time] 28.8 s High 11.7-14.9 [facility] International normalized rat io (INR) calculationOrdered By: Karon Corrales on 12-18-2024 INR Coag (Bld) [Relative time] 2.4 {INR} [facility] Prothrombin Time w/INRon INR Coag (PPP) [Relative time] 2.4 {INR} Normal [facility] Comment on above: Order Comment: 411.1 Performed By: #### L 300.3900 ####[facility] [address] [place], [place], [phone] PT Coag (PPP) [Time] 26.7 s High 11.7-14.9 [facility] Comment on above: Order Comment: 411.1 Performed By: #### L 300.3900 ####[facility] [address] [place], [place], [phone] Prothrombin timeOrdered By: Karon Corrales on 12-18-2024 PT Coag (PPP) [Time] 26.7 s High 11.7-14.9 [facility] International normalized rat io (INR) calculationOrdered By: Karon Corrales on 12-15-2024 INR Coag (Bld) [Relative time] 2.3 {INR} [facility] Prothrombin Time w/INRon INR Coag (PPP) [Relative time] 2.3 {INR} Normal [facility] Comment on above: Order Comment: 411.1 Performed By: #### L 300.3900 ####[facility] [address] [place], [place], [address] Prothrombin timeOrdered By: Karon Corrales on 12-15-2024 PT Coag (PPP) [Time] 25.7 s High 11.7-14.9 [facility] Comment on above: Order Comment: 411.1 Performed By: #### L 300.3900 ####[facility] [address] [place], [place], [phone] International normalized rat io (INR) calculationOrdered By: Carlos Cavazos on 12-11-2024 INR Coag (Bld) [Relative time] 2.2 {INR} [facility] Prothrombin Time w/INRon INR Coag (PPP) [Relative time] 2.2 {INR} Normal [facility] Comment on above: Order Comment: 411-1 Performed By: #### L 300.3900 ####[facility] [address] [place], [place], [phone] Prothrombin timeOrdered By: Carlos Cavazos on 12-11-2024 PT Coag (PPP) [Time] 24.7 s High 11.7-14.9 [facility] Comment on above: Order Comment: 411-1 Performed By: #### L 300.3900 ####[facility] [address] [place], [place], [phone] International normalized rat io (INR) calculationOrdered By: Karon Corrales on 12-08-2024 INR Coag (Bld) [Relative time] 2.2 {INR} [facility] Prothrombin Time w/INRon INR Coag (PPP) [Relative time] 2.2 {INR} Normal [facility] Comment on above: Order Comment: 411.1 Performed By: #### L 300.3900 ####[facility] [address] [place], [place], [phone] PT Coag (PPP) [Time] 25.0 s High 11.7-14.9 [facility] Comment on above: Order Comment: 411.1 Performed By: #### L 300.3900 ####[facility] [address] [place], [place], [phone] Prothrombin timeOrdered By: Karon Corrales on 12-08-2024 PT Coag (PPP) [Time] 25.0 s High 11.7-14.9 [facility] International normalized rat io (INR) calculationOrdered By: Karon Corrales on 12-04-2024 INR Coag (Bld) [Relative time] 2.3 {INR} [facility] Prothrombin Time w/INRon INR Coag (PPP) [Relative time] 2.3 {INR} Normal [facility] Comment on above: Order Comment: 411.1 Performed By: #### L 300.3900 ####[facility] [address] [place], [place], [phone] PT Coag (PPP) [Time] 25.9 s High 11.7-14.9 [facility] Comment on above: Order Comment: 411.1 Performed By: #### L 300.3900 ####[facility] [address] [place], [place], [phone] Prothrombin timeOrdered By: Karon Corrales on 12-04-2024 PT Coag (PPP) [Time] 25.9 s High 11.7-14.9 [facility] International normalized rat io (INR) calculationOrdered By: Karon Corrales on 12-02-2024 INR Coag (Bld) [Relative time] 2.5 {INR} [facility] Prothrombin Time w/INRon INR Coag (PPP) [Relative time] 2.5 {INR} Normal [facility] Comment on above: Order Comment: 411.1 Performed By: #### L 300.3900 ####[facility] [address] [place], [place], [phone] PT Coag (PPP) [Time] 27.3 s High 11.7-14.9 [facility] Comment on above: Order Comment: 411.1 Performed By: #### L 300.3900 ####[facility] [address] [place], [place], [phone] Prothrombin timeOrdered By: Karon Corrales on 12-02-2024 PT Coag (PPP) [Time] 27.3 s High 11.7-14.9 [facility] International normalized rat io (INR) calculationOrdered By: Carlos Cavazos on 12-01-2024 INR Coag (Bld) [Relative time] 2.3 {INR} [facility] Prothrombin Time w/INRon INR Coag (PPP) [Relative time] 2.3 {INR} Normal [facility] Comment on above: Order Comment: 411-1 Performed By: #### L 300.3900 ####[facility] [address] [place], [place], [phone]) PT Coag (PPP) [Time] 26.0 s High 11.7-14.9 [facility] Comment on above: Order Comment: 411-1 Performed By: #### L 300.3900 ####[facility] [address] [place], [place], [phone] Prothrombin timeOrdered By: Carlos Cavazos on 12-01-2024 PT Coag (PPP) [Time] 26.0 s High 11.7-14.9 [facility] International normalized rat io (INR) calculationOrdered By: Carlos Cavazos on 11-28-2024 INR Coag (Bld) [Relative time] 3.1 {INR} [facility] Prothrombin Time w/INRon INR Coag (PPP) [Relative time] 3.1 {INR} Normal [facility] Comment on above: Order Comment: 411-1 Performed By: #### L 300.3900 ####[facility] [address] [place], [place], [phone] PT Coag (PPP) [Time] 32.8 s High 11.7-14.9 [facility] Comment on above: Order Comment: 411-1 Performed By: #### L 300.3900 ####[facility] [address] [place], [place], [phone] Prothrombin timeOrdered By: Carlos Cavazos on 11-28-2024 PT Coag (PPP) [Time] 32.8 s High 11.7-14.9 [facility] International normalized rat io (INR) calculationOrdered By: Karon Corrales on 11-27-2024 INR Coag (Bld) [Relative time] 3.3 {INR} [facility] Prothrombin Time w/INRon INR Coag (PPP) [Relative time] 3.3 {INR} Normal [facility] Comment on above: Order Comment: 411.1 Performed By: #### L 300.3900 ####[facility] [address] [place], [phone] PT Coag (PPP) [Time] 34.3 s High 11.7-14.9 [facility] Comment on above: Order Comment: 411.1 Performed By: #### L 300.3900 ####[facility] [address] [place], [place], [phone] Prothrombin timeOrdered By: Karon Corrales on 11-27-2024 PT Coag (PPP) [Time] 34.3 s High 11.7-14.9 [facility] International normalized rat io (INR) calculationOrdered By: Karon Corrales on 11-24-2024 INR Coag (Bld) [Relative time] 2.8 {INR} [facility] Prothrombin Time w/INRon INR Coag (PPP) [Relative time] 2.8 {INR} Normal [facility] Comment on above: Order Comment: 411.2 Performed By: #### L 300.3900 ####[facility] [address] [place], [address] PT Coag (PPP) [Time] 30.0 s High 11.7-14.9 [facility] Comment on above: Order Comment: 411.2 Performed By: #### L 300.3900 ####[facility] [address] [place], [address] Prothrombin timeOrdered By: Karon Corrales on 11-24-2024 PT Coag (PPP) [Time] 30.0 s High 11.7-14.9 [facility] International normalized rat io (INR) calculationOrdered By: Karon Corrales on 11-20-2024 INR Coag (Bld) [Relative time] 3.0 {INR} [facility] Prothrombin Time w/INRon INR Coag (PPP) [Relative time] 3.0 {INR} Normal [facility] Comment on above: Order Comment: 411.2 Performed By: #### L 300.3900 ####[facility] [address] [place], [address] PT Coag (PPP) [Time] 32.0 s High 11.7-14.9 [facility] Comment on above: Order Comment: 411.2 Performed By: #### L 300.3900 ####[facility] [address] [place], [place], [phone] Prothrombin timeOrdered By: Karon Corrales on 11-20-2024 PT Coag (PPP) [Time] 32.0 s High 11.7-14.9 [facility] International normalized rat io (INR) calculationOrdered By: Karon Corrales on 11-17-2024 INR Coag (Bld) [Relative time] 2.9 {INR} [facility] Prothrombin Time w/INRon INR Coag (PPP) [Relative time] 2.9 {INR} Normal [facility] Comment on above: Order Comment: 411.2 Performed By: #### L 300.3900 ####[facility] [address] [place], [address] PT Coag (PPP) [Time] 30.7 s High 11.7-14.9 [facility] Comment on above: Order Comment: 411.2 Performed By: #### L 300.3900 ####[facility] [address] [place], [place], [phone] Prothrombin timeOrdered By: Karon Corrales on 11-17-2024 PT Coag (PPP) [Time] 30.7 s High 11.7-14.9 [facility] International normalized rat io (INR) calculationOrdered By: Karon Corrales on 11-13-2024 INR Coag (Bld) [Relative time] 2.2 {INR} [facility] Prothrombin Time w/INRon INR Coag (PPP) [Relative time] 2.2 {INR} Normal [facility] Comment on above: Order Comment: 411.2 Performed By: #### L 300.3900 ####[facility] [address] [place], [address] PT Coag (PPP) [Time] 24.7 s High 11.7-14.9 [facility] Comment on above: Order Comment: 411.2 Performed By: #### L 300.3900 ####[facility] [address] [place], [address] Prothrombin timeOrdered By: Karon Corrales on 11-13-2024 PT Coag (PPP) [Time] 24.7 s High 11.7-14.9 [facility] International normalized rat io (INR) calculationOrdered By: Karon Corrales on 11-10-2024 INR Coag (Bld) [Relative time] 2.6 {INR} [facility] Prothrombin Time w/INRon INR Coag (PPP) [Relative time] 2.6 {INR} Normal [facility] Comment on above: Order Comment: 411.2 Performed By: #### L 300.3900 ####[facility] [address] [place], [address] PT Coag (PPP) [Time] 28.7 s High 11.7-14.9 [facility] Comment on above: Order Comment: 411.2 Performed By: #### L 300.3900 ####[facility] [address] [place], [address] Prothrombin timeOrdered By: Karon Corrales on 11-10-2024 PT Coag (PPP) [Time] 28.7 s High 11.7-14.9 [facility] International normalized rat io (INR) calculationOrdered By: Karon Corrales on 11-06-2024 INR Coag (Bld) [Relative time] 3.1 {INR} [facility] Prothrombin Time w/INRon INR Coag (PPP) [Relative time] 3.1 {INR} Normal [facility] Comment on above: Order Comment: 411.2 Performed By: #### L 300.3900 ####[facility] [address] [place], [address](528) Prothrombin timeOrdered By: Karon Corrales on 11-06-2024 PT Coag (PPP) [Time] 33.0 s High 11.7-14.9 [facility] Comment on above: Order Comment: 411.2 Performed By: #### L 300.3900 ####[facility] [address] [place], [place], [phone] International normalized rat io (INR) calculationOrdered By: Carlos Cavazos on 11-03-2024 INR Coag (Bld) [Relative time] 3.0 {INR} [facility] Prothrombin Time w/INRon INR Coag (PPP) [Relative time] 3.0 {INR} Normal [facility] Comment on above: Order Comment: 411-2 Performed By: #### L 300.3900 ####[facility] [address] [place], [place], [phone] PT Coag (PPP) [Time] 31.4 s High 11.7-14.9 [facility] Comment on above: Order Comment: 411-2 Performed By: #### L 300.3900 ####[facility] [address] [place], [place], [phone] Prothrombin timeOrdered By: Carlos Cavazos on 11-03-2024 PT Coag (PPP) [Time] 31.4 s High 11.7-14.9 [facility] International normalized rat io (INR) calculationOrdered By: Karon Corrales on 10-30-2024 INR Coag (Bld) [Relative time] 2.4 {INR} [facility] Prothrombin Time w/INRon INR Coag (PPP) [Relative time] 2.4 {INR} Normal [facility] Comment on above: Performed By: #### L 300.3900 ####[facility] [address] [place], [place], [phone] PT Coag (PPP) [Time] 26.3 s High 11.7-14.9 [facility] Comment on above: Performed By: #### L 300.3900 ####[facility] [address] [place], [place], [phone] Prothrombin timeOrdered By: Karon Corrales on 10-30-2024 PT Coag (PPP) [Time] 26.3 s High 11.7-14.9 [facility] International normalized rat io (INR) calculationOrdered By: Karon Corrales on 10-27-2024 INR Coag (Bld) [Relative time] 2.2 {INR} [facility] Prothrombin Time w/INRon INR Coag (PPP) [Relative time] 2.2 {INR} Normal [facility] Comment on above: Order Comment: 411.2 Performed By: #### L 300.3900 ####[facility] [address] [place], [place], [phone] Prothrombin timeOrdered By: Karon Corrales on 10-27-2024 PT Coag (PPP) [Time] 24.5 s High 11.7-14.9 [facility] Comment on above: Order Comment: 411.2 Performed By: #### L 300.3900 ####[facility] [address] [place], [address] International normalized rat io (INR) calculationOrdered By: Karon Corrales on 10-23-2024 INR Coag (Bld) [Relative time] 2.5 {INR} [facility] Prothrombin Time w/INRon INR Coag (PPP) [Relative time] 2.5 {INR} Normal [facility] Comment on above: Order Comment: 411.2 Performed By: #### L 300.3900 ####[facility] [address] [place], [place], [phone] PT Coag (PPP) [Time] 27.9 s High 11.7-14.9 [facility] Comment on above: Order Comment: 411.2 Performed By: #### L 300.3900 ####[facility] [address] [place], [place], [phone] Prothrombin timeOrdered By: Karon Corrales on 10-23-2024 PT Coag (PPP) [Time] 27.9 s High 11.7-14.9 [facility] International normalized rat io (INR) calculationOrdered By: Karon Corrales on 10-20-2024 INR Coag (Bld) [Relative time] 3.1 {INR} [facility] Prothrombin Time w/INRon INR Coag (PPP) [Relative time] 3.1 {INR} Normal [facility] Comment on above: Order Comment: 411.2 Performed By: #### L 300.3900 ####[facility] [address] [place], [place], [phone] PT Coag (PPP) [Time] 32.8 s High 11.7-14.9 [facility] Comment on above: Order Comment: 411.2 Performed By: #### L 300.3900 ####[facility] [address] [place], [place], [phone] Prothrombin timeOrdered By: Karon Corrales on 10-20-2024 PT Coag (PPP) [Time] 32.8 s High 11.7-14.9 [facility] International normalized rat io (INR) calculationOrdered By: Karon Corrales on 10-16-2024 INR Coag (Bld) [Relative time] 2.8 {INR} [facility] Prothrombin Time w/INRon INR Coag (PPP) [Relative time] 2.8 {INR} Normal [facility] Comment on above: Order Comment: 411.2 Performed By: #### L 300.3900 ####[facility] [address] [place], [address] PT Coag (PPP) [Time] 30.4 s High 11.7-14.9 [facility] Comment on above: Order Comment: 411.2 Performed By: #### L 300.3900 ####[facility] [address] [place], [address] Prothrombin timeOrdered By: Karon Corrales on 10-16-2024 PT Coag (PPP) [Time] 30.4 s High 11.7-14.9 [facility] International normalized rat io (INR) calculationOrdered By: Carlos Cavazos on 10-13-2024 INR Coag (Bld) [Relative time] 1.9 {INR} [facility] Prothrombin Time w/INRon INR Coag (PPP) [Relative time] 1.9 {INR} Normal [facility] Comment on above: Order Comment: 411-2 Performed By: #### L 300.3900 ####[facility] [address] [place], [address] PT Coag (PPP) [Time] 22.4 s High 11.7-14.9 [facility] Comment on above: Order Comment: 411-2 Performed By: #### L 300.3900 ####[facility] [address] [place], [address] Prothrombin timeOrdered By: Carlos Cavazos on 10-13-2024 PT Coag (PPP) [Time] 22.4 s High 11.7-14.9 [facility] International normalized rat io (INR) calculationOrdered By: Karon Corrales on 10-09-2024 INR Coag (Bld) [Relative time] 3.0 {INR} [facility] Prothrombin Time w/INRon INR Coag (PPP) [Relative time] 3.0 {INR} Normal [facility] Comment on above: Order Comment: 411.2 Performed By: #### L 300.3900 ####[facility] [address] [place], [phone] Prothrombin timeOrdered By: Karon Corrales on 10-09-2024 PT Coag (PPP) [Time] 31.8 s High 11.7-14.9 [facility] Comment on above: Order Comment: 411.2 Performed By: #### L 300.3900 ####[facility] [address] [place], [place], [phone] International normalized rat io (INR) calculationOrdered By: Carlos Cavazos on 10-06-2024 INR Coag (Bld) [Relative time] 2.7 {INR} [facility] Prothrombin Time w/INRon INR Coag (PPP) [Relative time] 2.7 {INR} Normal [facility] Comment on above: Order Comment: 411-2 Performed By: #### L 300.3900 ####[facility] [address] [place], [place], [phone] PT Coag (PPP) [Time] 29.6 s High 11.7-14.9 [facility] Comment on above: Order Comment: 411-2 Performed By: #### L 300.3900 ####[facility] [address] [place], [place], [phone] Prothrombin timeOrdered By: Carlos Cavazos on 10-06-2024 PT Coag (PPP) [Time] 29.6 s High 11.7-14.9 [facility] International normalized rat io (INR) calculationOrdered By: Karon Corrales on 10-02-2024 INR Coag (Bld) [Relative time] 2.3 {INR} [facility] Prothrombin Time w/INRon INR Coag (PPP) [Relative time] 2.3 {INR} Normal [facility] Comment on above: Order Comment: 411.2 Performed By: #### L 300.3900 ####[facility] [address] [place], [address] PT Coag (PPP) [Time] 26.0 s High 11.7-14.9 [facility] Comment on above: Order Comment: 411.2 Performed By: #### L 300.3900 ####[facility] [address] [place], [address] Prothrombin timeOrdered By: Karon Corrales on 10-02-2024 PT Coag (PPP) [Time] 26.0 s High 11.7-14.9 [facility] International normalized rat io (INR) calculationOrdered By: Karon Corrales on 09-30-2024 INR Coag (Bld) [Relative time] 3.1 {INR} [facility] Prothrombin Time w/INRon INR Coag (PPP) [Relative time] 3.1 {INR} Normal [facility] Comment on above: Order Comment: 411.2 Performed By: #### L 300.3900 ####[facility] [address] [place], [address] PT Coag (PPP) [Time] 32.6 s High 11.7-14.9 [facility] Comment on above: Order Comment: 411.2 Performed By: #### L 300.3900 ####[facility] [address] [place], [address] Prothrombin timeOrdered By: Karon Corrales on 09-30-2024 PT Coag (PPP) [Time] 32.6 s High 11.7-14.9 [facility] International normalized rat io (INR) calculationOrdered By: Karon Corrales on 09-25-2024 INR Coag (Bld) [Relative time] 2.4 {INR} [facility] Prothrombin Time w/INRon INR Coag (PPP) [Relative time] 2.4 {INR} Normal [facility] Comment on above: Order Comment: 411.2 Performed By: #### L 300.3900 ####[facility] [address] [facility] [phone] Prothrombin timeOrdered By: Karon Corrales on 09-25-2024 PT Coag (PPP) [Time] 26.7 s High 11.7-14.9 [facility] Comment on above: Order Comment: 411.2 Performed By: #### L 300.3900 ####[facility] [address] [place], [place], [phone] International normalized rat io (INR) calculationOrdered By: Karon Corrales on 09-22-2024 INR Coag (Bld) [Relative time] 2.5 {INR} [facility] Prothrombin Time w/INRon INR Coag (PPP) [Relative time] 2.5 {INR} Normal [facility] Comment on above: Order Comment: 411.2 Performed By: #### L 300.3900 ####[facility] [address] [place], [place], [phone] Prothrombin timeOrdered By: Karon Corrales on 09-22-2024 PT Coag (PPP) [Time] 27.4 s High 11.7-14.9 [facility] Comment on above: Order Comment: 411.2 Performed By: #### L 300.3900 ####[facility] [address] [place], [place], [phone] International normalized rat io (INR) calculationOrdered By: Karon Corrales on 09-18-2024 INR Coag (Bld) [Relative time] 2.2 {INR} [facility] Prothrombin Time w/INRon INR Coag (PPP) [Relative time] 2.2 {INR} Normal [facility] Comment on above: Order Comment: 411.2 Performed By: #### L 300.3900 ####[facility] [address] [place], [place], [phone] PT Coag (PPP) [Time] 25.1 s High 11.7-14.9 [facility] Comment on above: Order Comment: 411.2 Performed By: #### L 300.3900 ####[facility] [address] [place], [place], [phone] Prothrombin timeOrdered By: Karon Corrales on 09-18-2024 PT Coag (PPP) [Time] 25.1 s High 11.7-14.9 [facility] International normalized rat io (INR) calculationOrdered By: Carlos Cavazos on 09-15-2024 INR Coag (Bld) [Relative time] 2.4 {INR} [facility] Prothrombin Time w/INRon INR Coag (PPP) [Relative time] 2.4 {INR} Normal [facility] Comment on above: Order Comment: 411-2 Performed By: #### L 300.3900 ####[facility] [address] [place], [place], [phone] Prothrombin timeOrdered By: Carlos Cavazos on 09-15-2024 PT Coag (PPP) [Time] 26.3 s High 11.7-14.9 [facility] Comment on above: Order Comment: 411-2 Performed By: #### L 300.3900 ####[facility] [address] [place], [address] International normalized rat io (INR) calculationOrdered By: Karon Corrales on 09-11-2024 INR Coag (Bld) [Relative time] 2.0 {INR} [facility] Prothrombin Time w/INRon INR Coag (PPP) [Relative time] 2.0 {INR} Normal [facility] Comment on above: Order Comment: 411.2 Performed By: #### L 300.3900 ####[facility] [address] [place], [address] PT Coag (PPP) [Time] 22.9 s High 11.7-14.9 [facility] Comment on above: Order Comment: 411.2 Performed By: #### L 300.3900 ####[facility] [address] [place], [phone] Prothrombin timeOrdered By: Karon Corrales on 09-11-2024 PT Coag (PPP) [Time] 22.9 s High 11.7-14.9 [facility] International normalized rat io (INR) calculationOrdered By: Karon Corrales on 09-08-2024 INR Coag (Bld) [Relative time] 2.0 {INR} [facility] Prothrombin Time w/INRon INR Coag (PPP) [Relative time] 2.0 {INR} Normal [facility] Comment on above: Order Comment: 411.2 Performed By: #### L 300.3900 ####[facility] [address] [place], [address] PT Coag (PPP) [Time] 22.8 s High 11.7-14.9 [facility] Comment on above: Order Comment: 411.2 Performed By: #### L 300.3900 ####[facility] [address] [place], [place], [phone] Prothrombin timeOrdered By: Karon Corrales on 09-08-2024 PT Coag (PPP) [Time] 22.8 s High 11.7-14.9 [facility] International normalized rat io (INR) calculationOrdered By: Carlos Cavazos on 09-04-2024 INR Coag (Bld) [Relative time] 1.7 {INR} [facility] Prothrombin Time w/INRon INR Coag (PPP) [Relative time] 1.7 {INR} Normal [facility] Comment on above: Order Comment: 411-2 Performed By: #### L 300.3900 ####[facility] [address] [place], [place], [phone] PT Coag (PPP) [Time] 20.8 s High 11.7-14.9 [facility] Comment on above: Order Comment: 411-2 Performed By: #### L 300.3900 ####[facility] [address] [place], [place], [phone] Prothrombin timeOrdered By: Carlos Cavazos on 09-04-2024 PT Coag (PPP) [Time] 20.8 s High 11.7-14.9 [facility] International normalized rat io (INR) calculationOrdered By: Carlos Cavazos on 09-01-2024 INR Coag (Bld) [Relative time] 2.9 {INR} [facility] Prothrombin Time w/INRon INR Coag (PPP) [Relative time] 2.9 {INR} Normal [facility] Comment on above: Order Comment: 411-2 Performed By: #### L 300.3900 ####[facility] [address] [place], [place], [phone] PT Coag (PPP) [Time] 30.7 s High 11.7-14.9 [facility] Comment on above: Order Comment: 411-2 Performed By: #### L 300.3900 ####[facility] [address] [place], [place], [phone] Prothrombin timeOrdered By: Carlos Cavazos on 04-28-2025 PT Coag (PPP) [Time] 30.7 s High 11.7-14.9 [facility] International normalized rat io (INR) calculationOrdered By: Carlos Cavazos on 08-28-2024 INR Coag (Bld) [Relative time] 2.4 {INR} [facility] Prothrombin Time w/INRon INR Coag (PPP) [Relative time] 2.4 {INR} Normal [facility] Comment on above: Order Comment: 411-2 Performed By: #### L 300.3900 ####[facility] [address] [place], [phone] Prothrombin timeOrdered By: Carlos Cavazos on 08-28-2024 PT Coag (PPP) [Time] 26.7 s High 11.7-14.9 [facility] Comment on above: Order Comment: 411-2 Performed By: #### L 300.3900 ####[facility] [address] [place], [phone] International normalized rat io (INR) calculationOrdered By: Karon Corrales on 08-25-2024 INR Coag (Bld) [Relative time] 1.8 {INR} [facility] Prothrombin Time w/INRon INR Coag (PPP) [Relative time] 1.8 {INR} Normal [facility] Comment on above: Order Comment: 411.2 Performed By: #### L 300.3900 ####[facility] [address] [place], [phone] PT Coag (PPP) [Time] 21.6 s High 11.7-14.9 [facility] Comment on above: Order Comment: 411.2 Performed By: #### L 300.3900 ####[facility] [address] [place], [phone] Prothrombin timeOrdered By: Karon Corrales on 08-25-2024 PT Coag (PPP) [Time] 21.6 s High 11.7-14.9 [facility] International normalized rat io (INR) calculationOrdered By: Karon Corrales on 08-21-2024 INR Coag (Bld) [Relative time] 1.7 {INR} [facility] PSA, total screeningOrdered By: Karon Corrales on 08-21-2024 Prostate Specific Antigen Screen 0.52 ng/mL 0.02-4.00 [facility] Comment on above: This test was perfor med using the [employer] tPSA method. Measured values of a patient sample can vary depending on the testing procedure used. PSA values determined on patient samples by different testing procedures cannot be used interchangeably. If there is a change in PSA assays while monitoring therapy, sequential testing should be performed to confirm baseline values. PSA,Total - Annual Screenon 08-21-2024 PSA,TOT SCREEN 0.52 ng/mL Normal 0.02-4.00 [facility] Comment on above: [...] values. Performed By: #### L 501.9910, L300.3900 ####[facility] [address] [place], [place], [phone] Prothrombin Time w/INRon INR Coag (PPP) [Relative time] 1.7 {INR} Normal [facility] Comment on above: Order Comment: 411.2 Performed By: #### L 501.9910, L300.3900 ####[facility] [address] [place], [address] Prothrombin timeOrdered By: Karon Corrales on 08-21-2024 PT Coag (PPP) [Time] 20.1 s High 11.7-14.9 [facility] Comment on above: Order Comment: 411.2 Performed By: #### L 501.9910, L300.3900 ####[facility] [address] [place], [place], [phone] International normalized rat io (INR) calculationOrdered By: Karon Corrales on 08-18-2024 INR Coag (Bld) [Relative time] 3.0 {INR} [facility] Prothrombin Time w/INRon INR Coag (PPP) [Relative time] 3.0 {INR} Normal [facility] Comment on above: Order Comment: 411.2 Performed By: #### L 300.3900 ####[facility] [address] [place], [place], [phone] PT Coag (PPP) [Time] 31.4 s High 11.7-14.9 [facility] Comment on above: Order Comment: 411.2 Performed By: #### L 300.3900 ####[facility] [address] [place], [place], [phone] Prothrombin timeOrdered By: Karon Corrales on 08-18-2024 PT Coag (PPP) [Time] 31.4 s High 11.7-14.9 [facility] International normalized rat io (INR) calculationOrdered By: Karon Corrales on 08-14-2024 INR Coag (Bld) [Relative time] 2.4 {INR} [facility] Prothrombin Time w/INRon INR Coag (PPP) [Relative time] 2.4 {INR} Normal [facility] Comment on above: Order Comment: 411.2 Performed By: #### L 300.3900 ####[facility] [address] [place], [address] PT Coag (PPP) [Time] 26.6 s High 11.7-14.9 [facility] Comment on above: Order Comment: 411.2 Performed By: #### L 300.3900 ####[facility] [address] [place], [address] Prothrombin timeOrdered By: Karon Corrales on 08-14-2024 PT Coag (PPP) [Time] 26.6 s High 11.7-14.9 [facility] International normalized rat io (INR) calculationOrdered By: Karon Corrales on 08-11-2024 INR Coag (Bld) [Relative time] 3.1 {INR} [facility] Prothrombin Time w/INRon INR Coag (PPP) [Relative time] 3.1 {INR} Normal [facility] Comment on above: Order Comment: 411.2 Performed By: #### L 300.3900 ####[facility] [address] [place], [place], [phone] PT Coag (PPP) [Time] 32.4 s High 11.7-14.9 [facility] Comment on above: Order Comment: 411.2 Performed By: #### L 300.3900 ####[facility] [address] [place], [place], [phone] Prothrombin timeOrdered By: Karon Corrales on 08-11-2024 PT Coag (PPP) [Time] 32.4 s High 11.7-14.9 [facility] International normalized rat io (INR) calculationOrdered By: Carlos Cavazos on 08-07-2024 INR Coag (Bld) [Relative time] 2.8 {INR} [facility] Prothrombin Time w/INRon INR Coag (PPP) [Relative time] 2.8 {INR} Normal [facility] Comment on above: Order Comment: 411-2 Performed By: #### L 300.3900 ####[facility] [address] [place], [address] PT Coag (PPP) [Time] 30.3 s High 11.7-14.9 [facility] Comment on above: Order Comment: 411-2 Performed By: #### L 300.3900 ####[facility] [address] [place], [place], [phone] Prothrombin timeOrdered By: Carlos Cavazos on 08-07-2024 PT Coag (PPP) [Time] 30.3 s High 11.7-14.9 [facility] International normalized rat io (INR) calculationOrdered By: Carlos Cavazos on 08-04-2024 INR Coag (Bld) [Relative time] 1.9 {INR} [facility] Prothrombin Time w/INRon INR Coag (PPP) [Relative time] 1.9 {INR} Normal [facility] Comment on above: Order Comment: 411-2 Performed By: #### L 300.3900 ####[facility] [address] [place], [place], [phone] PT Coag (PPP) [Time] 22.1 s High 11.7-14.9 [facility] Comment on above: Order Comment: 411-2 Performed By: #### L 300.3900 ####[facility] [address] [place], [place], [phone] Prothrombin timeOrdered By: Carlos Cavazos on 08-04-2024 PT Coag (PPP) [Time] 22.1 s High 11.7-14.9 [facility] International normalized rat io (INR) calculationOrdered By: Karon Corrales on 07-31-2024 INR Coag (Bld) [Relative time] 3.2 {INR} [facility] Prothrombin Time w/INRon INR Coag (PPP) [Relative time] 3.2 {INR} Normal [facility] Comment on above: Order Comment: 411.2 Performed By: #### L 300.3900 ####[facility] [address] [place], [place], [phone] PT Coag (PPP) [Time] 33.5 s High 11.7-14.9 [facility] Comment on above: Order Comment: 411.2 Performed By: #### L 300.3900 ####[facility] [address] [place], [place], [phone] Prothrombin timeOrdered By: Karon Corrales on 07-31-2024 PT Coag (PPP) [Time] 33.5 s High 11.7-14.9 [facility] International normalized rat io (INR) calculationOrdered By: Karon Corrales on 07-28-2024 INR Coag (Bld) [Relative time] 2.7 {INR} [facility] Prothrombin Time w/INRon INR Coag (PPP) [Relative time] 2.7 {INR} Normal [facility] Comment on above: Order Comment: 411.2 Performed By: #### L 300.3900 ####[facility] [address] [place], [place], [phone] PT Coag (PPP) [Time] 29.6 s High 11.7-14.9 [facility] Comment on above: Order Comment: 411.2 Performed By: #### L 300.3900 ####[facility] [address] [place], [place], [phone] Prothrombin timeOrdered By: Karon Corrales on 07-28-2024 PT Coag (PPP) [Time] 29.6 s High 11.7-14.9 [facility] International normalized rat io (INR) calculationOrdered By: Carlos Cavazos on 07-25-2024 INR Coag (Bld) [Relative time] 3.0 {INR} [facility] Prothrombin Time w/INRon INR Coag (PPP) [Relative time] 3.0 {INR} Normal [facility] Comment on above: Order Comment: 411-2 Performed By: #### L 300.3900 ####[facility] [address] [place], [place], [phone] Prothrombin timeOrdered By: Carlos Cavazos on 07-25-2024 PT Coag (PPP) [Time] 32.1 s High 11.7-14.9 [facility] Comment on above: Order Comment: 411-2 Performed By: #### L 300.3900 ####[facility] [address] [place], [place], [phone] International normalized rat io (INR) calculationOrdered By: Karon Corrales on 07-24-2024 INR Coag (Bld) [Relative time] 3.4 {INR} [facility] Prothrombin Time w/INRon INR Coag (PPP) [Relative time] 3.4 {INR} Normal [facility] Comment on above: Order Comment: 411.2 Performed By: #### L 300.3900 ####[facility] [address] [place], [place], [phone] Prothrombin timeOrdered By: Karon Corrales on 07-24-2024 PT Coag (PPP) [Time] 35.4 s High 11.7-14.9 [facility] Comment on above: Order Comment: 411.2 Performed By: #### L 300.3900 ####[facility] [address] [place], [place], [phone] International normalized rat io (INR) calculationOrdered By: Karon Corrales on 07-21-2024 INR Coag (Bld) [Relative time] 1.6 {INR} [facility] Prothrombin Time w/INRon INR Coag (PPP) [Relative time] 1.6 {INR} Normal [facility] Comment on above: Order Comment: 411.2 Performed By: #### L 300.3900 ####[facility] [address] [place], [place], [phone] PT Coag (PPP) [Time] 19.6 s High 11.7-14.9 [facility] Comment on above: Order Comment: 411.2 Performed By: #### L 300.3900 ####[facility] [address] [place], [place], [phone] Prothrombin timeOrdered By: Karon Corrales on 07-21-2024 PT Coag (PPP) [Time] 19.6 s High 11.7-14.9 [facility] International normalized rat io (INR) calculationOrdered By: Karon Corrales on 07-17-2024 INR Coag (Bld) [Relative time] 2.9 {INR} [facility] Prothrombin Time w/INRon INR Coag (PPP) [Relative time] 2.9 {INR} Normal [facility] Comment on above: Order Comment: 411.2 Performed By: #### L 300.3900 ####[facility] [address] [place], [place], [phone] PT Coag (PPP) [Time] 31.1 s High 11.7-14.9 [facility] Comment on above: Order Comment: 411.2 Performed By: #### L 300.3900 ####[facility] [address] [place], [place], [phone] Prothrombin timeOrdered By: Karon Corrales on 07-17-2024 PT Coag (PPP) [Time] 31.1 s High 11.7-14.9 [facility] International normalized rat io (INR) calculationOrdered By: Carlos Cavazos on 07-14-2024 INR Coag (Bld) [Relative time] 2.5 {INR} [facility] Prothrombin Time w/INRon INR Coag (PPP) [Relative time] 2.5 {INR} Normal [facility] Comment on above: Order Comment: 411-2 Performed By: #### L 300.3900 ####[facility] [address] [place], [place], [phone] PT Coag (PPP) [Time] 27.5 s High 11.7-14.9 [facility] Comment on above: Order Comment: 411-2 Performed By: #### L 300.3900 ####[facility] [address] [place], [address] Prothrombin timeOrdered By: Carlos Cavazos on 07-14-2024 PT Coag (PPP) [Time] 27.5 s High 11.7-14.9 [facility] International normalized rat io (INR) calculationOrdered By: Carlos Cavazos on 07-11-2024 INR Coag (Bld) [Relative time] 2.5 {INR} [facility] Prothrombin Time w/INRon INR Coag (PPP) [Relative time] 2.5 {INR} Normal [facility] Comment on above: Performed By: #### L 300.3900 ####[facility] [address] [place], [address] PT Coag (PPP) [Time] 27.7 s High 11.7-14.9 [facility] Comment on above: Performed By: #### L 300.3900 ####[facility] [address] [place], [address] Prothrombin timeOrdered By: Carlos Cavazos on 07-11-2024 PT Coag (PPP) [Time] 27.7 s High 11.7-14.9 [facility] Prothrombin Time w/INRon INR Normal [facility] Comment on above: Order Comment: 411.2 Result Comment: QNS TUBE NOT FILLED Performed By: #### L 300.3900 ####[facility] [address] [place], [address] PROTIME Normal 11.7-14.9 [facility] Comment on above: Order Comment: 411.2 Result Comment: QNS TUBE NOT FILLED Performed By: #### L 300.3900 ####[facility] [address] [place], [address] International normalized rat io (INR) calculationOrdered By: Kvng Crisostomo on 07-07-2024 INR Coag (Bld) [Relative time] 2.5 {INR} [facility] Prothrombin Time w/INRon INR Coag (PPP) [Relative time] 2.5 {INR} Normal [facility] Comment on above: Order Comment: 411.2 Performed By: #### L 300.3900 ####[facility] [address] [place], [place], [phone] PT Coag (PPP) [Time] 27.2 s High 11.7-14.9 [facility] Comment on above: Order Comment: 411.2 Performed By: #### L 300.3900 ####[facility] [address] [place], [address] Prothrombin timeOrdered By: Kvng Crisostomo on 07-07-2024 PT Coag (PPP) [Time] 27.2 s High 11.7-14.9 [facility] International normalized rat io (INR) calculationOrdered By: Kvng Crisostomo on 07-03-2024 INR Coag (Bld) [Relative time] 2.5 {INR} [facility] Prothrombin Time w/INRon INR Coag (PPP) [Relative time] 2.5 {INR} Normal [facility] Comment on above: Order Comment: 411.2 Performed By: #### L 300.3900 ####[facility] [address] [place], [address] PT Coag (PPP) [Time] 27.2 s High 11.7-14.9 [facility] Comment on above: Order Comment: 411.2 Performed By: #### L 300.3900 ####[facility] [address] [place], [address] Prothrombin timeOrdered By: Kvng Crisostomo on 07-03-2024 PT Coag (PPP) [Time] 27.2 s High 11.7-14.9 [facility] International normalized rat io (INR) calculationOrdered By: vKng Crisostomo on 06-30-2024 INR Coag (Bld) [Relative time] 2.4 {INR} [facility] Prothrombin Time w/INRon INR Coag (PPP) [Relative time] 2.4 {INR} Normal [facility] Comment on above: Order Comment: 411.2 Performed By: #### L 300.3900 ####[facility] [address] [place], [address] PT Coag (PPP) [Time] 26.8 s High 11.7-14.9 [facility] Comment on above: Order Comment: 411.2 Performed By: #### L 300.3900 ####[facility] [address], [address] Prothrombin timeOrdered By: Kvng Crisostomo on 06-30-2024 PT Coag (PPP) [Time] 26.8 s High 11.7-14.9 [facility] International normalized rat io (INR) calculationOrdered By: Elizabethet Andressa on 06-26-2024 INR Coag (Bld) [Relative time] 2.5 {INR} [facility] Prothrombin Time w/INRon INR Coag (PPP) [Relative time] 2.5 {INR} Normal [facility] Comment on above: Order Comment: 411.2 Performed By: #### L 300.3900 ####[facility] [address] [place], [address] PT Coag (PPP) [Time] 27.5 s High 11.7-14.9 [facility] Comment on above: Order Comment: 411.2 Performed By: #### L 300.3900 ####[facility] [address], [address] Prothrombin timeOrdered By: Kvng Crisostomo on 06-26-2024 PT Coag (PPP) [Time] 27.5 s High 11.7-14.9 [facility] International normalized rat io (INR) calculationOrdered By: Carlos Cavazos on 06-23-2024 INR Coag (Bld) [Relative time] 2.8 {INR} [facility] Prothrombin Time w/INRon INR Coag (PPP) [Relative time] 2.8 {INR} Normal [facility] Comment on above: Order Comment: 411-2 Performed By: #### L 300.3900 ####[facility] [address] [facility] [address] PT Coag (PPP) [Time] 29.7 s High 11.7-14.9 [facility] Comment on above: Order Comment: 411-2 Performed By: #### L 300.3900 ####[facility] [address] [facility] [address] Prothrombin timeOrdered By: Carlos Cavazos on 06-23-2024 PT Coag (PPP) [Time] 29.7 s High 11.7-14.9 [facility] International normalized rat io (INR) calculationOrdered By: Kvng Crisostomo on 06-19-2024 INR Coag (Bld) [Relative time] 2.6 {INR} [facility] Prothrombin Time w/INRon INR Coag (PPP) [Relative time] 2.6 {INR} Normal [facility] Comment on above: Order Comment: 411.2 Performed By: #### L 300.3900 ####[facility] [address] [place], [address] PT Coag (PPP) [Time] 28.6 s High 11.7-14.9 [facility] Comment on above: Order Comment: 411.2 Performed By: #### L 300.3900 ####[facility] [address], [address] Prothrombin timeOrdered By: Kvng Crisostomo on 06-19-2024 PT Coag (PPP) [Time] 28.6 s High 11.7-14.9 [facility] International normalized rat io (INR) calculationOrdered By: Kvng Crisostomo on 06-16-2024 INR Coag (Bld) [Relative time] 2.5 {INR} [facility] Prothrombin Time w/INRon INR Coag (PPP) [Relative time] 2.5 {INR} Normal [facility] Comment on above: Order Comment: 411.2 Performed By: #### L 300.3900 ####[facility] [address] [place], [address] PT Coag (PPP) [Time] 27.3 s High 11.7-14.9 [facility] Comment on above: Order Comment: 411.2 Performed By: #### L 300.3900 ####[facility] [address] [place], [address] Prothrombin timeOrdered By: Kvng Crisostomo on 06-16-2024 PT Coag (PPP) [Time] 27.3 s High 11.7-14.9 [facility] International normalized rat io (INR) calculationOrdered By: Kvng Crisostomo on 06-12-2024 INR Coag (Bld) [Relative time] 2.1 {INR} [facility] Prothrombin Time w/INRon INR Coag (PPP) [Relative time] 2.1 {INR} Normal [facility] Comment on above: Order Comment: 411.2 Performed By: #### L 300.3900 ####[facility] [address] [place], [address] PT Coag (PPP) [Time] 24.0 s High 11.7-14.9 [facility] Comment on above: Order Comment: 411.2 Performed By: #### L 300.3900 ####[facility] [address] [place], [address] Prothrombin timeOrdered By: Kvng Crisostomo on 06-12-2024 PT Coag (PPP) [Time] 24.0 s High 11.7-14.9 [facility] International normalized rat io (INR) calculationOrdered By: Carlos Cavazos on 06-09-2024 INR Coag (Bld) [Relative time] 1.5 {INR} [facility] Prothrombin Time w/INRon INR Coag (PPP) [Relative time] 1.5 {INR} Normal [facility] Comment on above: Order Comment: 411-2 Performed By: #### L 300.3900 ####[facility] [address] [place], [address](317) PT Coag (PPP) [Time] 18.0 s High 11.7-14.9 [facility] Comment on above: Order Comment: 411-2 Performed By: #### L 300.3900 ####[facility] [address] [place], [address]74) Prothrombin timeOrdered By: Carlos Cavazos on 06-09-2024 PT Coag (PPP) [Time] 18.0 s High 11.7-14.9 [facility] International normalized rat io (INR) calculationOrdered By: Kvng Crisostomo on 06-05-2024 INR Coag (Bld) [Relative time] 2.8 {INR} [facility] Prothrombin Time w/INRon INR Coag (PPP) [Relative time] 2.8 {INR} Normal [facility] Comment on above: Order Comment: 411.2 Performed By: #### L 300.3900 ####[facility] [address] [place], [place], [phone] PT Coag (PPP) [Time] 30.3 s High 11.7-14.9 [facility] Comment on above: Order Comment: 411.2 Performed By: #### L 300.3900 ####[facility] [address] [place], [address]) Prothrombin timeOrdered By: Kvng Crisostomo on 06-05-2024 PT Coag (PPP) [Time] 30.3 s High 11.7-14.9 [facility] International normalized rat io (INR) calculationOrdered By: Kvng Crisostomo on 06-02-2024 INR Coag (Bld) [Relative time] 2.6 {INR} [facility] Prothrombin Time w/INRon INR Coag (PPP) [Relative time] 2.6 {INR} Normal [facility] Comment on above: Order Comment: 411.2 Performed By: #### L 300.3900 ####[facility] [address] [place], [place], [phone]) PT Coag (PPP) [Time] 28.6 s High 11.7-14.9 [facility] Comment on above: Order Comment: 411.2 Performed By: #### L 300.3900 ####[facility] [address] [place], [place], [phone]) Prothrombin timeOrdered By: Kvng Crisostomo on 06-02-2024 PT Coag (PPP) [Time] 28.6 s High 11.7-14.9 [facility] International normalized rat io (INR) calculationOrdered By: Kvng Crisostomo on 05-29-2024 INR Coag (Bld) [Relative time] 2.5 {INR} [facility] Prothrombin Time w/INRon INR Coag (PPP) [Relative time] 2.5 {INR} Normal [facility] Comment on above: Order Comment: 411.2 Performed By: #### L 300.3900 ####[facility] [address] [place], [place], [phone] PT Coag (PPP) [Time] 27.7 s High 11.7-14.9 [facility] Comment on above: Order Comment: 411.2 Performed By: #### L 300.3900 ####[facility] [address] [place], [place], [phone] Prothrombin timeOrdered By: Kvng Crisostomo on 05-29-2024 PT Coag (PPP) [Time] 27.7 s High 11.7-14.9 [facility] International normalized rat io (INR) calculationOrdered By: Carlos Cavazos on 05-26-2024 INR Coag (Bld) [Relative time] 2.2 {INR} [facility] Prothrombin Time w/INRon INR Coag (PPP) [Relative time] 2.2 {INR} Normal [facility] Comment on above: Order Comment: 411-2 Performed By: #### L 300.3900 ####[facility] [address] [place], [address] PT Coag (PPP) [Time] 24.5 s High 11.7-14.9 [facility] Comment on above: Order Comment: 411-2 Performed By: #### L 300.3900 ####[facility] [address] [place], [address] Prothrombin timeOrdered By: Carlos Cavazos on 05-26-2024 PT Coag (PPP) [Time] 24.5 s High 11.7-14.9 [facility] International normalized rat io (INR) calculationOrdered By: Kvng Crisostomo on 05-22-2024 INR Coag (Bld) [Relative time] 2.8 {INR} [facility] Prothrombin Time w/INRon INR Coag (PPP) [Relative time] 2.8 {INR} Normal [facility] Comment on above: Order Comment: 411.2 Performed By: #### L 300.3900 ####[facility] [address] [place], [address] PT Coag (PPP) [Time] 30.3 s High 11.7-14.9 [facility] Comment on above: Order Comment: 411.2 Performed By: #### L 300.3900 ####[facility] [address] [place], [address] Prothrombin timeOrdered By: Kvng Crisostomo on 05-22-2024 PT Coag (PPP) [Time] 30.3 s High 11.7-14.9 [facility] International normalized rat io (INR) calculationOrdered By: Kvng Crisostomo on 05-20-2024 INR Coag (Bld) [Relative time] 4.0 {INR} High [facility] Comment on above: CRITICAL VALUE CASEY D TO WYPYSQEGK06/14/25 [facility] Diana Mattson.RESULTS READ BACK BY SAME. Prothrombin Time w/INRon INR Coag (PPP) [Relative time] 4.0 {INR} Invalid Interpretation Code [facility] Comment on above: Order Comment: 411.2 Result Comment: CRIT ICAL VALUE CALLED TO [place] [address] [facility] Diana Mattson.RESULTS READ BACK BY SAME. Performed By: #### L 300.3900 ####[facility] [address] [place], [place], [phone] PT Coag (PPP) [Time] 39.9 s High 11.7-14.9 [facility] Comment on above: Order Comment: 411.2 Performed By: #### L 300.3900 ####[facility] [address] [place], [place], [phone] Prothrombin timeOrdered By: Kvng Crisostomo on 05-20-2024 PT Coag (PPP) [Time] 39.9 s High 11.7-14.9 [facility] International normalized rat io (INR) calculationOrdered By: Kvng Crisostomo on 05-19-2024 INR Coag (Bld) [Relative time] 3.4 {INR} [facility] Prothrombin Time w/INRon INR Coag (PPP) [Relative time] 3.4 {INR} Normal [facility] Comment on above: Order Comment: 411.2 Performed By: #### L 300.3900 ####[facility] [address] [place], [place], [phone] PT Coag (PPP) [Time] 35.4 s High 11.7-14.9 [facility] Comment on above: Order Comment: 411.2 Performed By: #### L 300.3900 ####[facility] [address] [place], [place], [phone]([phone] Prothrombin timeOrdered By: Kvng Crisostomo on 05-19-2024 PT Coag (PPP) [Time] 35.4 s High 11.7-14.9 [facility] International normalized rat io (INR) calculationOrdered By: Kvng Crisostomo on 05-15-2024 INR Coag (Bld) [Relative time] 2.6 {INR} [facility] Prothrombin Time w/INRon INR Coag (PPP) [Relative time] 2.6 {INR} Normal [facility] Comment on above: Order Comment: 411.2 Performed By: #### L 300.3900 ####[facility] [address] [place], [address] PT Coag (PPP) [Time] 28.7 s High 11.7-14.9 [facility] Comment on above: Order Comment: 411.2 Performed By: #### L 300.3900 ####[facility] [address] [place], [address] Prothrombin timeOrdered By: Kvng Crisostomo on 05-15-2024 PT Coag (PPP) [Time] 28.7 s High 11.7-14.9 [facility] International normalized rat io (INR) calculationOrdered By: Carlos Cavazos on 05-12-2024 INR Coag (Bld) [Relative time] 2.1 {INR} [facility] Prothrombin Time w/INRon INR Coag (PPP) [Relative time] 2.1 {INR} Normal [facility] Comment on above: Order Comment: 411-2 Performed By: #### L 300.3900 ####[facility] [address], [address] PT Coag (PPP) [Time] 24.1 s High 11.7-14.9 [facility] Comment on above: Order Comment: 411-2 Performed By: #### L 300.3900 ####[facility] [address] [place], [address] Prothrombin timeOrdered By: Carlos Cavazos on 05-12-2024 PT Coag (PPP) [Time] 24.1 s High 11.7-14.9 [facility] International normalized rat io (INR) calculationOrdered By: Kvng Crisostomo on 05-09-2024 INR Coag (Bld) [Relative time] 3.4 {INR} [facility] Prothrombin Time w/INRon INR Coag (PPP) [Relative time] 3.4 {INR} Normal [facility] Comment on above: Order Comment: 411.2 Performed By: #### L 300.3900 ####[facility] [address] [place], [address] PT Coag (PPP) [Time] 35.4 s High 11.7-14.9 [facility] Comment on above: Order Comment: 411.2 Performed By: #### L 300.3900 ####[facility] [address] [place], [address] Prothrombin timeOrdered By: Kvng Crisostomo on 05-09-2024 PT Coag (PPP) [Time] 35.4 s High 11.7-14.9 [facility] International normalized rat io (INR) calculationOrdered By: Kvng Crisostomo on 05-08-2024 INR Coag (Bld) [Relative time] 4.1 {INR} High [facility] Comment on above: CRITICAL VALUE CASEY D TO WILMER MCGINNIS05/08/24 0950 Karen Jamison.RESULTS READ BACK BY SAME. Prothrombin Time w/INRon INR Coag (PPP) [Relative time] 4.1 {INR} Invalid Interpretation Code [facility] Comment on above: Order Comment: 411.2 Result Comment: CRIT ICAL VALUE CALLED TO WILMER MCGINNIS05/08/24 0950 Karen Jamison.RESULTS READ BACK BY SAME. Performed By: #### L 300.3900 ####[facility] [address] [place], [address] PT Coag (PPP) [Time] 40.8 s High 11.7-14.9 [facility] Comment on above: Order Comment: 411.2 Performed By: #### L 300.3900 ####[facility] [address] [place], [address] Prothrombin timeOrdered By: Kvng Crisostomo on 05-08-2024 PT Coag (PPP) [Time] 40.8 s High 11.7-14.9 [facility] International normalized rat io (INR) calculationOrdered By: Kvng Crisostomo on 05-05-2024 INR Coag (Bld) [Relative time] 3.2 {INR} [facility] Prothrombin Time w/INRon INR Coag (PPP) [Relative time] 3.2 {INR} Normal [facility] Comment on above: Order Comment: 411.2 Performed By: #### L 300.3900 ####[facility] [address] [place], [address] PT Coag (PPP) [Time] 32.5 s High 11.7-14.9 [facility] Comment on above: Order Comment: 411.2 Performed By: #### L 300.3900 ####[facility] [address] [place], [address] Prothrombin timeOrdered By: Kvng Crisostomo on 05-05-2024 PT Coag (PPP) [Time] 32.5 s High 11.7-14.9 [facility] International normalized rat io (INR) calculationOrdered By: Kvng Crisostomo on 05-01-2024 INR Coag (Bld) [Relative time] 3.1 {INR} [facility] Prothrombin Time w/INRon INR Coag (PPP) [Relative time] 3.1 {INR} Normal [facility] Comment on above: Order Comment: 411.2 Performed By: #### L 300.3900 ####[facility] [address] [place], [address] PT Coag (PPP) [Time] 31.9 s High 11.7-14.9 [facility] Comment on above: Order Comment: 411.2 Performed By: #### L 300.3900 ####[facility] [address] [place], [address] Prothrombin timeOrdered By: Kvng Crisostomo on 05-01-2024 PT Coag (PPP) [Time] 31.9 s High 11.7-14.9 [facility] International normalized rat io (INR) calculationOrdered By: Carlos Cavazos on 04-28-2024 INR Coag (Bld) [Relative time] 2.6 {INR} [facility] Prothrombin Time w/INRon INR Coag (PPP) [Relative time] 2.6 {INR} Normal [facility] Comment on above: Order Comment: 411-2 Performed By: #### L 300.3900 ####[facility] [address] [place], [address] PT Coag (PPP) [Time] 27.3 s High 11.7-14.9 [facility] Comment on above: Order Comment: 411-2 Performed By: #### L 300.3900 ####[facility] [address] [place], [address] Prothrombin timeOrdered By: Carlos Cavazos on 04-28-2024 PT Coag (PPP) [Time] 27.3 s High 11.7-14.9 [facility] International normalized rat io (INR) calculationOrdered By: Kvng Crisostomo on 04-24-2024 INR Coag (Bld) [Relative time] 3.6 {INR} [facility] Prothrombin Time w/INRon INR Coag (PPP) [Relative time] 3.6 {INR} Normal [facility] Comment on above: Order Comment: 411.2 Performed By: #### L 300.3900 ####[facility] [address] [place], [address] PT Coag (PPP) [Time] 35.6 s High 11.7-14.9 [facility] Comment on above: Order Comment: 411.2 Performed By: #### L 300.3900 ####[facility] [address] [place], [address] Prothrombin timeOrdered By: Kvng Crisostomo on 04-24-2024 PT Coag (PPP) [Time] 35.6 s High 11.7-14.9 [facility] International normalized rat io (INR) calculationOrdered By: Carlos Cavazos on 04-21-2024 INR Coag (Bld) [Relative time] 2.8 {INR} [facility] Prothrombin Time w/INRon INR Coag (PPP) [Relative time] 2.8 {INR} Normal [facility] Comment on above: Order Comment: 411-2 Performed By: #### L 300.3900 ####[facility] [address] [place], [address] PT Coag (PPP) [Time] 29.4 s High 11.7-14.9 [facility] Comment on above: Order Comment: 411-2 Performed By: #### L 300.3900 ####[facility] [address] [place], [address] Prothrombin timeOrdered By: Carlos Cavazos on 04-21-2024 PT Coag (PPP) [Time] 29.4 s High 11.7-14.9 [facility] International normalized rat io (INR) calculationOrdered By: Kvng Crisostomo on 04-17-2024 INR Coag (Bld) [Relative time] 3.1 {INR} [facility] Prothrombin Time w/INRon INR Coag (PPP) [Relative time] 3.1 {INR} Normal [facility] Comment on above: Order Comment: 411.2 Performed By: #### L 300.3900 ####[facility] [address] [place], [place], [phone] Prothrombin timeOrdered By: Kvng Crisostomo on 04-17-2024 PT Coag (PPP) [Time] 31.3 s High 11.7-14.9 [facility] Comment on above: Order Comment: 411.2 Performed By: #### L 300.3900 ####[facility] [address] [place], [place], [phone](942) International normalized rat io (INR) calculationOrdered By: Kvng Crisostomo on 04-14-2024 INR Coag (Bld) [Relative time] 3.3 {INR} [facility] Prothrombin Time w/INRon INR Coag (PPP) [Relative time] 3.3 {INR} Normal [facility] Comment on above: Order Comment: 411.2 Performed By: #### L 300.3900 ####[facility] [address] [place], [place], [phone] PT Coag (PPP) [Time] 33.2 s High 11.7-14.9 [facility] Comment on above: Order Comment: 411.2 Performed By: #### L 300.3900 ####[facility] [address] [place], [place], [phone](947) Prothrombin timeOrdered By: Kvng Crisostomo on 04-14-2024 PT Coag (PPP) [Time] 33.2 s High 11.7-14.9 [facility] International normalized rat io (INR) calculationOrdered By: Kvng Crisostomo on 04-10-2024 INR Coag (Bld) [Relative time] 2.8 {INR} [facility] Prothrombin Time w/INRon INR Coag (PPP) [Relative time] 2.8 {INR} Normal [facility] Comment on above: Order Comment: 411.2 Performed By: #### L 300.3900 ####[facility] [address] [place], [address] PT Coag (PPP) [Time] 29.2 s High 11.7-14.9 [facility] [facility] Comment on above: Order Comment: 411.2 Performed By: #### L 300.3900 ####[facility] [address] [place], [address] Prothrombin timeOrdered By: Kvng Crisostomo on 04-10-2024 PT Coag (PPP) [Time] 29.2 s High 11.7-14.9 [facility] International normalized rat io (INR) calculationOrdered By: Carlos Cavazos on 04-07-2024 INR Coag (Bld) [Relative time] 2.7 {INR} [facility] Prothrombin Time w/INRon INR Coag (PPP) [Relative time] 2.7 {INR} Normal [facility] Comment on above: Order Comment: 411-2 Performed By: #### L 300.3900 ####[facility] [address] [place], [address] PT Coag (PPP) [Time] 28.1 s High 11.7-14.9 [facility] Comment on above: Order Comment: 411-2 Performed By: #### L 300.3900 ####[facility] [address] [place], [address] Prothrombin timeOrdered By: Carlos Cavazos on 04-07-2024 PT Coag (PPP) [Time] 28.1 s High 11.7-14.9 [facility] International normalized rat io (INR) calculationOrdered By: Kvng Crisostomo on 04-04-2024 INR Coag (Bld) [Relative time] 2.8 {INR} [facility] Prothrombin Time w/INRon INR Coag (PPP) [Relative time] 2.8 {INR} Normal [facility] Comment on above: Order Comment: 411.2 Performed By: #### L 300.3900 ####[facility] [address] [place], [address] PT Coag (PPP) [Time] 28.9 s High 11.7-14.9 [facility] Comment on above: Order Comment: 411.2 Performed By: #### L 300.3900 ####[facility] [address] [place], [address] Prothrombin timeOrdered By: Kvng Crisostomo on 04-04-2024 PT Coag (PPP) [Time] 28.9 s High 11.7-14.9 [facility] International normalized rat io (INR) calculationOrdered By: Carlos Cavazos on 03-31-2024 INR Coag (Bld) [Relative time] 2.6 {INR} [facility] Prothrombin Time w/INRon INR Coag (PPP) [Relative time] 2.6 {INR} Normal [facility] Comment on above: Order Comment: 411-2 Performed By: #### L 300.3900 ####[facility] [address] [place], [address] PT Coag (PPP) [Time] 27.3 s High 11.7-14.9 [facility] Comment on above: Order Comment: 411-2 Performed By: #### L 300.3900 ####[facility] [address] [place], [address] Prothrombin timeOrdered By: Carlos Cavazos on 03-31-2024 PT Coag (PPP) [Time] 27.3 s High 11.7-14.9 [facility] International normalized rat io (INR) calculationOrdered By: [facility] on 03-27-2024 INR Coag (Bld) [Relative time] 2.2 {INR} [facility] Prothrombin Time w/INRon INR Coag (PPP) [Relative time] 2.2 {INR} Normal [facility] Comment on above: Order Comment: 411.2 Performed By: #### L 300.3900 ####[facility] [address] [place], [address] PT Coag (PPP) [Time] 24.3 s High 11.7-14.9 [facility] Comment on above: Order Comment: 411.2 Performed By: #### L 300.3900 ####[facility] [address] [place], [address] Prothrombin timeOrdered By: [employer] on 03-27-2024 PT Coag (PPP) [Time] 24.3 s High 11.7-14.9 [facility] International normalized rat io (INR) calculationOrdered By: Kvng Crisostomo on 03-24-2024 INR Coag (Bld) [Relative time] 1.8 {INR} [facility] Prothrombin Time w/INRon INR Coag (PPP) [Relative time] 1.8 {INR} Normal [facility] Comment on above: Order Comment: 411.2 Performed By: #### L 300.3900 ####[facility] [address] [place], [address] PT Coag (PPP) [Time] 20.7 s High 11.7-14.9 [facility] Comment on above: Order Comment: 411.2 Performed By: #### L 300.3900 ####[facility] [address] [place], [address] Prothrombin timeOrdered By: Kvng Crisostomo on 03-24-2024 PT Coag (PPP) [Time] 20.7 s High 11.7-14.9 [facility] International normalized rat io (INR) calculationOrdered By: [employer] on 03-20-2024 INR Coag (Bld) [Relative time] 1.8 {INR} [facility] Prothrombin Time w/INRon INR Coag (PPP) [Relative time] 1.8 {INR} Normal [facility] Comment on above: Order Comment: 411.2 Performed By: #### L 300.3900 ####[facility] [address] [place], [address] PT Coag (PPP) [Time] 20.9 s High 11.7-14.9 [facility] Comment on above: Order Comment: 411.2 Performed By: #### L 300.3900 ####[facility] [address] [place], [address] Prothrombin timeOrdered By: [employer] on 03-20-2024 PT Coag (PPP) [Time] 20.9 s High 11.7-14.9 [facility] International normalized rat io (INR) calculationOrdered By: Kvng Crisostomo on 03-19-2024 INR Coag (Bld) [Relative time] 2.4 {INR} [facility] Prothrombin Time w/INRon INR Coag (PPP) [Relative time] 2.4 {INR} Normal [facility] Comment on above: Order Comment: 411.2 Performed By: #### L 300.3900 ####[facility] [address] [place], [address] PT Coag (PPP) [Time] 26.4 s High 11.7-14.9 [facility] Comment on above: Order Comment: 411.2 Performed By: #### L 300.3900 ####[facility] [address] [place], [address] Prothrombin timeOrdered By: Kvng Crisostomo on 03-19-2024 PT Coag (PPP) [Time] 26.4 s High 11.7-14.9 [facility] International normalized rat io (INR) calculationOrdered By: [employer] on 03-18-2024 INR Coag (Bld) [Relative time] 3.2 {INR} [facility] Prothrombin Time w/INRon INR Coag (PPP) [Relative time] 3.2 {INR} Normal [facility] Comment on above: Order Comment: 411.2 Performed By: #### L 300.3900 ####[facility] [address] [facility] [address] PT Coag (PPP) [Time] 32.3 s High 11.7-14.9 [facility] Comment on above: Order Comment: 411.2 Performed By: #### L 300.3900 ####[facility] [address] [facility] [address] Prothrombin timeOrdered By: [employer] on 03-18-2024 PT Coag (PPP) [Time] 32.3 s High 11.7-14.9 [facility] International normalized rat io (INR) calculationOrdered By: [employer] on 03-17-2024 INR Coag (Bld) [Relative time] 3.6 {INR} [facility] Prothrombin Time w/INRon INR Coag (PPP) [Relative time] 3.6 {INR} Normal [facility] Comment on above: Order Comment: 411.2 Performed By: #### L 300.3900 ####[facility] [address] [place], [address] PT Coag (PPP) [Time] 35.7 s High 11.7-14.9 [facility] Comment on above: Order Comment: 411.2 Performed By: #### L 300.3900 ####[facility] [address] [place], [address] Prothrombin timeOrdered By: [employer] on 03-17-2024 PT Coag (PPP) [Time] 35.7 s High 11.7-14.9 [facility] International normalized rat io (INR) calculationOrdered By: Carlos Cavazos on 03-14-2024 INR Coag (Bld) [Relative time] 3.5 {INR} [facility] Prothrombin Time w/INRon INR Coag (PPP) [Relative time] 3.5 {INR} Normal [facility] Comment on above: Order Comment: 411-2 Performed By: #### L 300.3900 ####[facility] [address], [address]) PT Coag (PPP) [Time] 35.0 s High 11.7-14.9 [facility] Comment on above: Order Comment: 411-2 Performed By: #### L 300.3900 ####[facility] [address] [place], [address] Prothrombin timeOrdered By: Carlos Cavazos on 03-14-2024 PT Coag (PPP) [Time] 35.0 s High 11.7-14.9 [facility] International normalized rat io (INR) calculationOrdered By: [employer] on 03-13-2024 INR Coag (Bld) [Relative time] 3.2 {INR} [facility] Prothrombin Time w/INRon INR Coag (PPP) [Relative time] 3.2 {INR} Normal [facility] Comment on above: Performed By: #### L 300.3900 ####[facility] [address] [place], [address] PT Coag (PPP) [Time] 32.2 s High 11.7-14.9 [facility] Comment on above: Performed By: #### L 300.3900 ####[facility] [address], [address]) Prothrombin timeOrdered By: [employer] on 03-13-2024 PT Coag (PPP) [Time] 32.2 s High 11.7-14.9 [facility] Prothrombin Time w/INRon INR Coag (PPP) [Relative time] 2.6 {INR} Normal [facility] Comment on above: Order Comment: 411.2 Performed By: #### L 300.3900 ####[facility] [address] [place], [address] PT Coag (PPP) [Time] 27.7 s High 11.7-14.9 [facility] Comment on above: Order Comment: 411.2 Performed By: #### L 300.3900 ####[facility] [address] [place], [address] Prothrombin Time w/INRon INR Coag (PPP) [Relative time] 3.1 {INR} Normal [facility] Comment on above: Order Comment: 411.2 Performed By: #### L 300.3900 ####[facility] [address] [place], [address] PT Coag (PPP) [Time] 31.4 s High 11.7-14.9 [facility] Comment on above: Order Comment: 411.2 Performed By: #### L 300.3900 ####[facility] [address] [place], [address] Prothrombin Time w/INRon INR Coag (PPP) [Relative time] 3.1 {INR} Normal [facility] Comment on above: Order Comment: 411.2 Performed By: #### L 300.3900 ####[facility] [address] [place], [address] PT Coag (PPP) [Time] 31.8 s High 11.7-14.9 [facility] Comment on above: Order Comment: 411.2 Performed By: #### L 300.3900 ####[facility] [address] [place], [address] Prothrombin Time w/INRon 10- 24-2024 INR Coag (PPP) [Relative time] 3.0 {INR} Normal [facility] Comment on above: Order Comment: 411.2 Performed By: #### L 300.3900 ####[facility] [address] [place], [place], [address] PT Coag (PPP) [Time] 30.6 s High 11.7-14.9 [facility] Comment on above: Order Comment: 411.2 Performed By: #### L 300.3900 ####[facility] [address] [place], [place], [address] Office Visiton 09-13-2023 Follow-up visit [id number] Tamie Sifuentes cheng Gonzalez 1950 M Pasha Provider Department Center 09/13/2023 32219-WJYVYCREBECCA BUCK [facility] None Family History Problem Relation Age of Onset Heart disease Father Cancer Mother Family Status - Relation Status Age at Father Mother Level of Service:56235 MI OFFICE/OUTPATIENT ESTABLISHED MOD MDM 30 MIN Reason for Visit and Comments: left flank pain [Other] - 8/10 pain when touched Normal [facility] Progress Noteon 09-13-2023 Progress Note Walt [...] Hydrocephalus, adult (CMS/HCC) (HCC) Kidney stone Neuropathy CIGAR MAKING 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 Normal [facility] CT ABDOMEN PELVIS WO IV CONT Kelly 09-07-2023 CT ABDOMEN PELVIS WO IV CONTRAST Patient Name: ANDREW SIFUENTES : 1950 [facility]#: [id number] Exam Date/Time: 09/06/2023 18:14 Procedure: CT ABDOMEN [...] a kidney stone; pt has a hernia [facility] 3608-29-2023 36 Lm on daughters vm t o advise them to call the number for the valet manager to get clarification, and to call back with further questions [facility] 3608-27-2023 36 Yes, they will need to call the number given to them. [facility] 36 Please advise [place] 0679908-21-2023 36 Name of caller: Zion holt Contact phone number: [phone] Relationship to Patient: patient Provider: MD Quinn Practice: [facility] [place] [facility] Chief Complaint/Reason for Call: [facility] called in to see if Pt would need to come by cot for his CT appt due to Pt being [place]. [facility] did reach out to office and was advised to reach out to Central Scheduling. CAC did reach out to and was advised to let [facility] know that she would need to reach out to call Maury Cedeño Maintenance Journeyman at [facility] [phone] to get clarifications. CAC did reach back out to [facility] and advised and provider Maury's #. Please advise Best time of day caller can be reached: Any Patient advised that office/PCP has 24-48 business hours to return their call: N/A [facility] Laboratory - CoagulationOrde red By: Carlos Cavazos on 08-21-2023 INR Coag (Bld) [Relative time] 2.7 {INR} [facility] PT Coag (PPP) [Time] 28.9 s 11.7-14.9 [facility] Office Visiton 08-13-2023 Follow-up visit [id number] Tamie Sifuentes 1950 M Date Provider Department Center 08/13/2023 [id number]-KVLZWJREBECCA BUCK [facility] [place] None Family History Problem Relation Age of Onset Heart disease Father Cancer Mother Family Status - Relation Status Age at Father Mother Level of Service:18011 MI OFFICE/OUTPATIENT NEW MODERATE MDM 45 MINUTES Reason for Visit and Comments: New Patient [542] - Bilateral flank pain, hx of kidney stones Nephrolithiasis [329085] [facility] Progress Noteon 08-13-2023 Progress Note [...] Hydrocephalus, adult (CMS/HCC) (HCC) Kidney stone Neuropathy CIGAR MAKING SUPERVISOR (ventriculoperitoneal) shunt status Past Surgical History: Past [...] CT ab (more content not included)... Normal [facility] No Panel InformationOrdered By: Carlos Cavazos on 08-03-2023 Levetiracetam (Keppra) Level 32.4 ug/mL 10.0-40.0 [facility] Comment on above: Performed at: [address] [id number] Director: Alpesh Vázquez MD, Phone: [phone] Basophil percentageOrdered B y: Carlos Cavazos on 07-20-2023 Chloride [Moles/Vol] 106 mmol/L 98-107 [facility] Glucose [Mass/Vol] 98 mg/dL 74-106 [facility] Hemoglobin (Bld) [Mass/Vol] 12.5 g/dL 13.0-16.5 [facility] Potassium [Moles/Vol] 4.3 mmol/L 3.5-5.1 [facility] Sodium [Moles/Vol] 135 mmol/L 136-145 [facility] WBC (Bld) [#/Vol] 13.0 10*3/uL 4.4-11.0 [facility] Determination of erythrocyte mean corpuscular volume (MCV)Ordered By: Carlos Cavazos on 07-20-2023 MCV (RBC) [Entitic vol] 86.2 fL 80-94 [facility] Erythrocyte distribution wid th ratioOrdered By: Carlos Cavazos on 07-20-2023 Erythrocyte distribution width (RBC) [Ratio] 15.3 % 11.6-14.6 [facility] Erythrocyte distribution wid th standard deviationOrdered By: Carlos Cavazos on 07-20-2023 Erythrocyte distribution width (RBC) [Entitic vol] 48.1 fL 35.1-43.9 [facility] Hematocrit Auto (Bld) [Volum e fraction]Ordered By: Carlos Cavazos on 07-20-2023 Hematocrit (Bld) [Volume fraction] 39.9 % 40-54 [facility] Laboratory - Chemistry and C hemistry - challengeOrdered By: Carlos Cavazos on 07-20-2023 CO2 [Moles/Vol] 24.0 mmol/L 21.0-32.0 [facility] Urea nitrogen/Creatinine [Mass ratio] 24.6 mg/mg 10-20 [facility] Laboratory - Hematology and Cell countsOrdered By: Carlos Cavazos on 07-20-2023 MCH (RBC) [Entitic mass] 27.0 pg 27.0-32.0 [facility] MCHC (RBC) [Mass/Vol] 31.3 g/dL 32-36 [facility] Platelet mean volume (Bld) [Entitic vol] 10.7 fL 6.2-12.0 [facility] Platelets (Bld) [#/Vol] 260 10*3/uL 150-450 [facility] No Panel InformationOrdered By: Carlos Cavazos on 07-20-2023 Estimated GFR (MDRD) Amer 114 mL/min >60 [facility] Comment on above: GFR Calc Estimated GFR (MDRD) Non-Af Amer 94 mL/min >60 [facility] Comment on above: Non- GFR Calc RBC Auto (Bld) [#/Vol]Ordere d By: Carlos Cavazos on 07-20-2023 RBC (Bld) [#/Vol] 4.63 10*6/uL 4.6-6.2 [facility] Serum or plasma calcium oral urement (mass/volume)Ordered By: Carlos Cavazos on 07-20-2023 Calcium [Mass/Vol] 8.6 mg/dL 8.5-10.1 [facility] Serum or plasma creatinine m easurement (mass/volume)Ordered By: Carlos Cavazos on 07-20-2023 Creatinine [Mass/Vol] 0.85 mg/dL 0.70-1.30 [facility] Comment on above: The validity of the calculated GFR & GFRAA in patients over 70 years has not been determined. Clinical correlation is essential. Serum or plasma urea nitroge n measurement (mass/volume)Ordered By: Carlos Cavazos on 07-20-2023 Urea nitrogen [Mass/Vol] 21 mg/dL 7-18 [facility] Thin prep Papanicolaou smear with manual screeningOrdered By: Carlos Cavazos on 07-20-2023 Thin prep Papanicolaou smear with manual screening 5 5-15 [facility] Basophil percentageOrdered B y: Carlos Cavazos on 07-18-2023 Chloride [Moles/Vol] 102 mmol/L 98-107 [facility] Glucose [Mass/Vol] 96 mg/dL 74-106 [facility] Hemoglobin (Bld) [Mass/Vol] 12.3 g/dL 13.0-16.5 [facility] Potassium [Moles/Vol] 4.2 mmol/L 3.5-5.1 [facility] Sodium [Moles/Vol] 136 mmol/L 136-145 [facility] WBC (Bld) [#/Vol] 14.7 10*3/uL 4.4-11.0 [facility] Determination of erythrocyte mean corpuscular volume (MCV)Ordered By: Carlos Cavazos on 07-18-2023 MCV (RBC) [Entitic vol] 85.4 fL 80-94 [facility] Erythrocyte distribution wid th ratioOrdered By: Carlos Cavazos on 07-18-2023 Erythrocyte distribution width (RBC) [Ratio] 15.1 % 11.6-14.6 [facility] Erythrocyte distribution wid th standard deviationOrdered By: Carlos Cavazos on 07-18-2023 Erythrocyte distribution width (RBC) [Entitic vol] 47.3 fL 35.1-43.9 [facility] Hematocrit Auto (Bld) [Volum e fraction]Ordered By: Carlos Cavazos on 07-18-2023 Hematocrit (Bld) [Volume fraction] 39.3 % 40-54 [facility] Laboratory - Chemistry and C hemistry - challengeOrdered By: Carlos Cavazos on 07-18-2023 CO2 [Moles/Vol] 27.0 mmol/L 21.0-32.0 [facility] Urea nitrogen/Creatinine [Mass ratio] 24.4 mg/mg 10-20 [facility] Laboratory - Hematology and Cell countsOrdered By: Carlos Cavazos on 07-18-2023 MCH (RBC) [Entitic mass] 26.7 pg 27.0-32.0 [facility] MCHC (RBC) [Mass/Vol] 31.3 g/dL 32-36 [facility] Platelet mean volume (Bld) [Entitic vol] 10.3 fL 6.2-12.0 [facility] Platelets (Bld) [#/Vol] 288 10*3/uL 150-450 [facility] No Panel InformationOrdered By: Carlos Cavazos on 07-18-2023 Estimated GFR (MDRD) Amer 113 mL/min >60 [facility] Comment on above: GFR Calc Estimated GFR (MDRD) Non-Af Amer 93 mL/min >60 [facility] Comment on above: Non- GFR Calc RBC Auto (Bld) [#/Vol]Ordere d By: Carlos Cavazos on 07-18-2023 RBC (Bld) [#/Vol] 4.60 10*6/uL 4.6-6.2 [facility] Serum or plasma calcium oral urement (mass/volume)Ordered By: Carlos Cavazos on 07-18-2023 Calcium [Mass/Vol] 8.9 mg/dL 8.5-10.1 [facility] Serum or plasma creatinine m easurement (mass/volume)Ordered By: Carlos Cavazos on 07-18-2023 Creatinine [Mass/Vol] 0.86 mg/dL 0.70-1.30 [facility] Comment on above: The validity of the calculated GFR & GFRAA in patients over 70 years has not been determined. Clinical correlation is essential. Serum or plasma urea nitroge n measurement (mass/volume)Ordered By: Carlos Cavazos on 07-18-2023 Urea nitrogen [Mass/Vol] 21 mg/dL 7-18 [facility] Thin prep Papanicolaou smear with manual screeningOrdered By: Carlos Cavazos on 07-18-2023 Thin prep Papanicolaou smear with manual screening 7 5-15 [facility] Basophil percentageOrdered B y: Carlos Cavazos on 07-17-2023 Basophil percentage 0-5 SEEN /hpf 0-5 [facility] Bilirubin Test strip Ql (U)O rdered By: Carlos Cavazos on 07-17-2023 Bilirubin Ql (U) Negative Negative [facility] Calcium oxalate crystals det ection in urine sediment by light microscopyOrdered By: Carlos Cavazos on 07-17-2023 Calcium oxalate crystals LM Ql (Urine sed) 1+ /hpf [facility] Culture, urineOrdered By: Sharif Crouch on 07-17-2023 Bacteria identified Cx Nom (U) Positive [facility] Ketones Test strip Ql (U)Ord ered By: Carlos Cavazos on 07-17-2023 Ketones Ql (U) Negative Negative [facility] Mucus LM Ql (Urine sed)Order ed By: Carlos Cavazos on 07-17-2023 Mucus Ql (Urine sed) 0 SEEN /hpf [facility] Nitrite Test strip Ql (U)Ord ered By: Carlos Cavazos on 07-17-2023 Nitrite Ql (U) Negative Negative [facility] No Panel InformationOrdered By: Carlos Cavazos on 07-17-2023 Urine RBC 0 SEEN /hpf 0-5 [facility] Protein Test strip Ql (U)Ord ered By: Carlos Cavazos on 07-17-2023 Protein Ql (U) Negative Negative [facility] Squamous epithelial cells de tection in urine sediment by light microscopyOrdered By: Carlos Cavazos on 07-17-2023 Epithelial cells.squamous LM Ql (Urine sed) 0-5 SEEN /hpf 0-5 [facility] Urine blood detectionOrdered By: Carlos Cavazos on 07-17-2023 RBC Ql (U) Negative Negative [facility] Urine clarityOrdered By: Ted Cavazos on 07-17-2023 Clarity (U) Clear Clear [facility] Urine color determinationOrd ered By: Carlos Cavazos on 03-12-2024 Color (U) Yellow Yellow [facility] Urine glucose detectionOrder ed By: Carlos Cavazos on 07-17-2023 Glucose Ql (U) Normal mg/dl Normal [facility] Urine leukocyte esterase det ection by dipstickOrdered By: Carlos Cavazos on 07-17-2023 Leukocyte esterase Test strip Ql (U) 25 /ul Negative [facility] Urine pHOrdered By: Carlos flores on 07-17-2023 pH (U) 6.0 [pH] 5.0 - 8.0 [facility] Urine sediment bacteria coun t by microscopy (number/high power field)Ordered By: Carlos Cavazos on 07-17-2023 Bacteria LM.HPF (Urine sed) [#/Area] 0 /[HPF] None Seen [facility] Urine specific gravity measu rementOrdered By: Carlos Cavazos on 07-17-2023 Specific gravity (U) [Rel density] 1.020 1.002-1.030 [facility] Urine urobilinogen measureme ntOrdered By: Carlos Cavazos on 07-17-2023 Urobilinogen Ql (U) Normal mg/dl Normal [facility] Absolute lymphocyte countOrd ered By: Carlos Cavazos on 07-16-2023 Lymphocytes Auto (Unsp spec) [#/Vol] 6.02 10*3/uL 0.83-4.51 [facility] Automated lymphocyte count a s percentage of total leukocytesOrdered By: Carlos Cavazos on 07-16-2023 Lymphocytes/100 WBC Auto (Unsp spec) 49.1 % 19-41 [facility] Basophil percentageOrdered B y: Carlos Cavazos on 07-16-2023 Basophils/100 WBC (Bld) 0.6 % 0-1 [facility] [facility] Chloride [Moles/Vol] 105 mmol/L 98-107 [facility] Eosinophils/100 WBC (Bld) 2.0 % 0-5 [facility] Glucose [Mass/Vol] 93 mg/dL 74-106 [facility] Hemoglobin (Bld) [Mass/Vol] 12.1 g/dL 13.0-16.5 [facility] Monocytes/100 WBC (Bld) 5.3 % 0-10 [facility] Neutrophils (Bld) [#/Vol] 5.2 10*3/uL 2.0-7.7 [facility] Neutrophils/100 WBC (Bld) 42.8 % 47-70 [facility] Potassium [Moles/Vol] 4.3 mmol/L 3.5-5.1 [facility] Sodium [Moles/Vol] 138 mmol/L 136-145 [facility] [place]BC (Bld) [#/Vol] 12.3 10*3/uL 4.4-11.0 [facility] [place] Blood manual differential co mment interpretation (narrative result)Ordered By: Carlos Cavazos on 07-16-2023 Manual differential comment Shemar (Bld) [Interp] SCANNED [facility] Determination of erythrocyte mean corpuscular volume (MCV)Ordered By: Carlos Cavazos on 07-16-2023 MCV (RBC) [Entitic vol] 86.8 fL 80-94 [facility] Erythrocyte distribution wid th ratioOrdered By: Carlos Cavazos on 07-16-2023 Erythrocyte distribution width (RBC) [Ratio] 15.3 % 11.6-14.6 [facility] Erythrocyte distribution wid th standard deviationOrdered By: Carlos Cavazos on 07-16-2023 Erythrocyte distribution width (RBC) [Entitic vol] 48.9 fL 35.1-43.9 [facility] Hematocrit Auto (Bld) [Volum e fraction]Ordered By: Carlos Cavazos on 07-16-2023 Hematocrit (Bld) [Volume fraction] 38.7 % 40-54 [facility] Immature granulocytes/100 WB C Auto (Bld)Ordered By: Carlos Cavazos on 07-16-2023 Immature granulocytes/100 WBC (Bld) 0.200 % 0.0-0.9 [facility] Comment on above: IG% - Immature Granu locytes (promyelocytes, myelocytes and metamyelocytes) > 1% indicates that a LEFT SHIFT is Present. Laboratory - Chemistry and C hemistry - challengeOrdered By: Carlos Cavazos on 07-16-2023 CO2 [Moles/Vol] 25.0 mmol/L 21.0-32.0 [facility] Urea nitrogen/Creatinine [Mass ratio] 21.0 mg/mg 10-20 [facility] Laboratory - CoagulationOrde red By: Carlos Cavazos on 07-16-2023 INR Coag (Bld) [Relative time] 2.4 {INR} [facility] PT Coag (PPP) [Time] 25.7 s 11.7-14.9 [facility] Laboratory - Hematology and Cell countsOrdered By: Carlos Cavazos on 07-16-2023 MCH (RBC) [Entitic mass] 27.1 pg 27.0-32.0 [facility] MCHC (RBC) [Mass/Vol] 31.3 g/dL 32-36 [facility] Nucleated RBC/100 WBC (Bld) [Ratio] 0 % 0-5 [facility] Platelet mean volume (Bld) [Entitic vol] 10.5 fL 6.2-12.0 [facility] Platelets (Bld) [#/Vol] 289 10*3/uL 150-450 [facility] No Panel InformationOrdered By: Carlos Cavazos on 07-16-2023 Estimated GFR (MDRD) Amer 106 mL/min >60 [facility] Comment on above: GFR Calc Estimated GFR (MDRD) Non-Af Amer 88 mL/min >60 [facility] Comment on above: Non- GFR Calc Reactive Lymphocytes 1+ [facility] RBC Auto (Bld) [#/Vol]Ordere d By: Carlos Cavazos on 07-16-2023 RBC (Bld) [#/Vol] 4.46 10*6/uL 4.6-6.2 [facility] Serum or plasma calcium oral urement (mass/volume)Ordered By: Carlos Cavazos on 07-16-2023 Calcium [Mass/Vol] 9.0 mg/dL 8.5-10.1 [facility] Serum or plasma creatinine m easurement (mass/volume)Ordered By: Carlos Cavazos on 07-16-2023 Creatinine [Mass/Vol] 0.90 mg/dL 0.70-1.30 [facility] Comment on above: The validity of the calculated GFR & GFRAA in patients over 70 years has not been determined. Clinical correlation is essential. Serum or plasma urea nitroge n measurement (mass/volume)Ordered By: Carlos Cavazos on 07-16-2023 Urea nitrogen [Mass/Vol] 19 mg/dL 7-18 [facility] Thin prep Papanicolaou smear with manual screeningOrdered By: Carlos Cavazos on 07-16-2023 Thin prep Papanicolaou smear with manual screening 8 5-15 [facility] Absolute lymphocyte countOrd ered By: Carlos Cavazos on 07-13-2023 Lymphocytes Auto (Unsp spec) [#/Vol] 5.44 10*3/uL 0.83-4.51 [facility] Automated lymphocyte count a s percentage of total leukocytesOrdered By: Carlos Cavazos on 07-13-2023 Lymphocytes/100 WBC Auto (Unsp spec) 47.3 % 19-41 [facility] Basophil percentageOrdered B y: Carlos Cavazos on 07-13-2023 Basophils/100 WBC (Bld) 0.4 % 0-1 [facility] Chloride [Moles/Vol] 107 mmol/L 98-107 [facility] Eosinophils/100 WBC (Bld) 1.7 % 0-5 [facility] Glucose [Mass/Vol] 96 mg/dL 74-106 [facility] Hemoglobin (Bld) [Mass/Vol] 13.5 g/dL 13.0-16.5 [facility] Monocytes/100 WBC (Bld) 4.3 % 0-10 [facility] Neutrophils (Bld) [#/Vol] 5.3 10*3/uL 2.0-7.7 [facility] Neutrophils/100 WBC (Bld) 46.0 % 47-70 [facility] Potassium [Moles/Vol] 4.0 mmol/L 3.5-5.1 [facility] Sodium [Moles/Vol] 139 mmol/L 136-145 [facility] WBC (Bld) [#/Vol] 11.5 10*3/uL 4.4-11.0 [facility] Determination of erythrocyte mean corpuscular volume (MCV)Ordered By: Carlos Cavazos on 07-13-2023 MCV (RBC) [Entitic vol] 86.1 fL 80-94 [facility] Erythrocyte distribution wid th ratioOrdered By: Carlos Cavazos on 07-13-2023 Erythrocyte distribution width (RBC) [Ratio] 15.2 % 11.6-14.6 [facility] Erythrocyte distribution wid th standard deviationOrdered By: Carlos Cavazos on 07-13-2023 Erythrocyte distribution width (RBC) [Entitic vol] 48.0 fL 35.1-43.9 [facility] Hematocrit Auto (Bld) [Volum e fraction]Ordered By: Carlos Cavazos on 07-13-2023 Hematocrit (Bld) [Volume fraction] 42.2 % 40-54 [facility] Immature granulocytes/100 WB C Auto (Bld)Ordered By: Carlos Cavazos on 07-13-2023 Immature granulocytes/100 WBC (Bld) 0.300 % 0.0-0.9 [facility] Comment on above: IG% - Immature Granu locytes (promyelocytes, myelocytes and metamyelocytes) > 1% indicates that a LEFT SHIFT is Present. Laboratory - Chemistry and C hemistry - challengeOrdered By: Carlos Cavazos on 07-13-2023 CO2 [Moles/Vol] 26.0 mmol/L 21.0-32.0 [facility] Urea nitrogen/Creatinine [Mass ratio] 21.8 mg/mg 10-20 [facility] Laboratory - Hematology and Cell countsOrdered By: Carlos Cavazos on 07-13-2023 MCH (RBC) [Entitic mass] 27.6 pg 27.0-32.0 [facility] MCHC (RBC) [Mass/Vol] 32.0 g/dL 32-36 [facility] Nucleated RBC/100 WBC (Bld) [Ratio] 0 % 0-5 [facility] Platelet mean volume (Bld) [Entitic vol] 10.1 fL 6.2-12.0 [facility] Platelets (Bld) [#/Vol] 279 10*3/uL 150-450 [facility] No Panel InformationOrdered By: Carlos Cavazos on 07-13-2023 Estimated GFR (MDRD) Amer 118 mL/min >60 [facility] Comment on above: GFR Calc Estimated GFR (MDRD) Non-Af Amer 98 mL/min >60 [facility] Comment on above: Non- GFR Calc Levetiracetam (Keppra) Level 25.5 ug/mL 10.0-40.0 [facility] Comment on above: Performed at: [place] [address] [place], [place] [id number] Director: Alpesh Vázquez MD, Phone: [phone] RBC Auto (Bld) [#/Vol]Ordere d By: Carlos Cavazos on 07-13-2023 RBC (Bld) [#/Vol] 4.90 10*6/uL 4.6-6.2 [facility] Serum or plasma calcium oral urement (mass/volume)Ordered By: Carlos Cavazos on 07-13-2023 Calcium [Mass/Vol] 9.1 mg/dL 8.5-10.1 [facility] Serum or plasma creatinine m easurement (mass/volume)Ordered By: Carlos Cavazos on 07-13-2023 Creatinine [Mass/Vol] 0.82 mg/dL 0.70-1.30 [facility] Comment on above: The validity of the calculated GFR & GFRAA in patients over 70 years has not been determined. Clinical correlation is essential. Serum or plasma urea nitroge n measurement (mass/volume)Ordered By: Carlos Cavazos on 07-13-2023 Urea nitrogen [Mass/Vol] 18 mg/dL 7-18 [facility] Thin prep Papanicolaou smear with manual screeningOrdered By: Carlos Cavazos on 07-13-2023 Thin prep Papanicolaou smear with manual screening 6 5-15 [facility] No Panel InformationOrdered By: Carlos Cavazos on 07-12-2023 Valproic Acid (Depakene) Level < 3 ug/mL 50-100 [facility] Laboratory - CoagulationOrde red By: Carlos Cavazos on 07-05-2023 INR Coag (Bld) [Relative time] 2.4 {INR} [facility] PT Coag (PPP) [Time] 26.3 s 11.7-14.9 [facility] Laboratory - CoagulationOrde red By: Carlos Cavazos on 07-02-2023 INR Coag (Bld) [Relative time] 1.5 {INR} [facility] PT Coag (PPP) [Time] 18.5 s 11.7-14.9 [facility] Laboratory - CoagulationOrde red By: Carlos Cavazos on 06-28-2023 INR Coag (Bld) [Relative time] 1.7 {INR} [facility] PT Coag (PPP) [Time] 20.5 s 11.7-14.9 [facility] 36on 06-25-2023 36 [facility] christiano called in stating appt scheduled 07/10/23 Guy has to be made further out, pt being transported by cot. Changed appt to 08/13/23 per [facility] only avail time for transport, first avail with DR Buck at 10:[address] [facility] Laboratory - CoagulationOrde red By: Carlos Cavazos on 06-25-2023 INR Coag (Bld) [Relative time] 3.8 {INR} [facility] PT Coag (PPP) [Time] 38.2 s 11.7-14.9 [facility] Laboratory - CoagulationOrde red By: Carlos Cavazos on 06-21-2023 INR Coag (Bld) [Relative time] 3.2 {INR} [facility] PT Coag (PPP) [Time] 32.9 s 11.7-14.9 [facility] No Panel InformationOrdered By: Carlos Cavazos on 06-13-2023 Valproic Acid (Depakene) Level < 3 ug/mL 50-100 [facility] Laboratory - CoagulationOrde red By: Carlos Cavazos on 06-06-2023 PT Coag (PPP) [Time] 30.5 s 11.7-14.9 [facility] Platelet poor plasma interna tional normalized ratio (INR)Ordered By: Carlos Cavazos on 06-06-2023 INR Coag (PPP) [Relative time] 2.9 {INR} [facility] International normalized rat io (INR) calculationOrdered By: Carlos Cavazos on 05-23-2023 INR Coag (PPP) [Relative time] 2.6 {INR} [facility] Laboratory - CoagulationOrde red By: Carlos Cavazos on 05-23-2023 PT Coag (PPP) [Time] 27.7 s 11.7-14.9 [facility] Laboratory - CoagulationOrde red By: Carlos Cavazos on 05-09-2023 PT Coag (PPP) [Time] 24.1 s 11.7-14.9 [facility] Whole blood international no rmalized ratio (INR)Ordered By: Carlos Cavazos on 05-09-2023 INR Coag (Bld) [Relative time] 2.1 {INR} [facility] Laboratory - CoagulationOrde red By: Carlos Cavazos on 04-23-2023 PT Coag (PPP) [Time] 26.4 s 11.7-14.9 [facility] Whole blood international no rmalized ratio (INR)Ordered By: Carlos Cavazos on 04-23-2023 INR Coag (Bld) [Relative time] 2.4 {INR} [facility] INR in Blood by Coagulation assayOrdered By: Carlos Cavazos on 04-09-2023 INR Coag (Bld) [Relative time] 2.1 {INR} [facility] Laboratory - CoagulationOrde red By: Carlos Cavazos on 04-09-2023 PT Coag (PPP) [Time] 23.9 s 11.7-14.9 [facility] INR in Blood by Coagulation assayOrdered By: Carlos Cavazos on 04-02-2023 INR Coag (Bld) [Relative time] 2.2 {INR} [facility] Laboratory - CoagulationOrde red By: Carlos Cavazos on 04-02-2023 PT Coag (PPP) [Time] 24.5 s 11.7-14.9 [facility] INR in Blood by Coagulation assayOrdered By: Carlos Cavazos on 03-26-2023 INR Coag (Bld) [Relative time] 1.7 {INR} [facility] Laboratory - CoagulationOrde red By: Carlos Cavazos on 03-26-2023 PT Coag (PPP) [Time] 19.9 s 11.7-14.9 [facility] INR in Blood by Coagulation assayOrdered By: Carlos Cavazos on 03-22-2023 INR Coag (Bld) [Relative time] 1.3 {INR} [facility] Laboratory - CoagulationOrde red By: Carlos Cavazos on 03-22-2023 PT Coag (PPP) [Time] 16.4 s 11.7-14.9 [facility] INR in Blood by Coagulation assayOrdered By: Carlos Cavazos on 03-08-2023 INR Coag (Bld) [Relative time] 2.0 {INR} [facility] Laboratory - CoagulationOrde red By: Carlos Cavazos on 03-08-2023 PT Coag (PPP) [Time] 22.5 s 11.7-14.9 [facility] Laboratory - CoagulationOrde red By: Carlos Cavazos on 02-22-2023 INR Coag (Bld) [Relative time] 2.2 {INR} [facility] Comment on above: Critical Value > 4.0 Whole blood prothrombin time Ordered By: Carlos Cavazos on 02-22-2023 PT Coag (Bld) [Time] 24.0 s 11.7-14.9 [facility] INR in Blood by Coagulation assayOrdered By: Cliff Bruner on 02-15-2023 INR Coag (Bld) [Relative time] 2.0 {INR} [facility] Laboratory - CoagulationOrde red By: Cliff Bruner on 02-15-2023 PT Coag (PPP) [Time] 22.8 s 11.7-14.9 [facility] INR in Blood by Coagulation assayOrdered By: Carlos Cavazos on 02-08-2023 INR Coag (Bld) [Relative time] 2.1 {INR} [facility] Laboratory - CoagulationOrde red By: Carlos Cavazos on 02-08-2023 PT Coag (PPP) [Time] 23.5 s 11.7-14.9 [facility] INR in Blood by Coagulation assayOrdered By: Carlos Cavazos on 01-31-2023 INR Coag (Bld) [Relative time] 2.0 {INR} [facility] Laboratory - CoagulationOrde red By: Carlos Cavazos on 01-31-2023 PT Coag (PPP) [Time] 22.4 s 11.7-14.9 [facility] Laboratory - CoagulationOrde red By: Carlos Cavazos on 01-29-2023 INR Coag (Bld) [Relative time] 1.8 {INR} [facility] Comment on above: Critical Value > 4.0 Whole blood prothrombin time Ordered By: Carlos Cavazos on 01-29-2023 PT Coag (Bld) [Time] 19.9 s 11.7-14.9 [facility] INR in Blood by Coagulation assayOrdered By: Carlos Cavazos on 01-26-2023 INR Coag (Bld) [Relative time] 1.5 {INR} [facility] Laboratory - CoagulationOrde red By: Carlos Cavazos on 01-26-2023 PT Coag (PPP) [Time] 18.3 s 11.7-14.9 [facility] INR in Blood by Coagulation assayOrdered By: Carlos Cavazos on 01-24-2023 INR Coag (Bld) [Relative time] 1.3 {INR} [facility] Laboratory - CoagulationOrde red By: Carlos Cavazos on 01-24-2023 PT Coag (PPP) [Time] 16.2 s 11.7-14.9 [facility] Basophil percentageOrdered B y: Carlos Cavazos on 01-22-2023 Basophil percentage 0 SEEN /hpf 0-5 [facility] Bilirubin Test strip Ql (U)O rdered By: Carlos Cavazos on 01-22-2023 Bilirubin Ql (U) Negative Negative [facility] Calcium oxalate crystals det ection in urine sediment by light microscopyOrdered By: Carlos Cavazos on 01-22-2023 Calcium oxalate crystals LM Ql (Urine sed) 1+ /hpf [facility] Culture, urineOrdered By: Sharif Crouch on 01-22-2023 Bacteria identified Cx Nom (U) Positive [facility] Ketones Test strip Ql (U)Ord ered By: Carlos Cavazos on 01-22-2023 Ketones Ql (U) Negative Negative [facility] Mucus LM Ql (Urine sed)Order ed By: Carlos Cavazos on 01-22-2023 Mucus Ql (Urine sed) 1+ /hpf [facility] Nitrite Test strip Ql (U)Ord ered By: Carlos Cavazos on 01-22-2023 Nitrite Ql (U) Negative Negative [facility] Protein Test strip Ql (U)Ord ered By: Carlos Cavazos on 01-22-2023 Protein Ql (U) Negative Negative [facility] Squamous epithelial cells de tection in urine sediment by light microscopyOrdered By: Carlos Cavazos on 01-22-2023 Epithelial cells.squamous LM Ql (Urine sed) 0 SEEN /hpf 0-5 [facility] Urine blood detectionOrdered By: Carlos Cavazos on 01-22-2023 RBC Ql (U) Negative Negative [facility] RBC Ql (U) 0 SEEN /hpf 0-5 [facility] Urine clarityOrdered By: Ted Cavazos on 01-22-2023 Clarity (U) Sl. Cloudy Clear [facility] Urine color determinationOrd ered By: Carlos Cavazos on 01-22-2023 Color (U) Yellow Yellow [facility] Urine glucose detectionOrder ed By: Carlos Cavazos on 01-22-2023 Glucose Ql (U) Normal mg/dl Normal [facility] Urine leukocyte esterase det ection by dipstickOrdered By: Carlos Cavazos on 01-22-2023 Leukocyte esterase Test strip Ql (U) Negative Negative [facility] Urine pHOrdered By: Carlos flores on 01-22-2023 pH (U) 5.0 [pH] 5.0 - 8.0 [facility] Urine sediment bacteria coun t by microscopy (number/high power field)Ordered By: Carlos Cavazos on 01-22-2023 Bacteria LM.HPF (Urine sed) [#/Area] 2 /[HPF] None Seen [facility] Urine specific gravity measu rementOrdered By: Carlos Cavazos on 01-22-2023 Specific gravity (U) [Rel density] 1.025 1.002-1.030 [facility] Urobilinogen Auto test strip Ql (U)Ordered By: Carlos Cavazos on 01-22-2023 Urobilinogen Ql (U) Normal mg/dl Normal [facility] INR in Blood by Coagulation assayOrdered By: Carlos Cavazos on 01-10-2023 INR Coag (Bld) [Relative time] 2.0 {INR} [facility] Laboratory - CoagulationOrde red By: Carlos Cavazos on 01-10-2023 PT Coag (PPP) [Time] 22.6 s 11.7-14.9 [facility] INR in Blood by Coagulation assayOrdered By: Carlos Cavazos on 12-27-2022 INR Coag (Bld) [Relative time] 2.1 {INR} [facility] Laboratory - CoagulationOrde red By: Carlos Cavazos on 12-27-2022 PT Coag (PPP) [Time] 24.1 s 11.7-14.9 [facility] INR in Blood by Coagulation assayOrdered By: Carlos Cavazos on 12-21-2022 INR Coag (Bld) [Relative time] 2.4 {INR} [facility] Laboratory - CoagulationOrde red By: Carlos Cavazos on 12-21-2022 PT Coag (PPP) [Time] 26.7 s 11.7-14.9 [facility] Laboratory - CoagulationOrde red By: Carlos Cavazos on 12-14-2022 INR Coag (Bld) [Relative time] 2.3 {INR} [facility] Comment on above: Critical Value > 4.0 Whole blood prothrombin time Ordered By: Carlos Cavazos on 12-14-2022 PT Coag (Bld) [Time] 25.2 s 11.7-14.9 [facility] Laboratory - CoagulationOrde red By: Carlos Cavazos on 12-07-2022 INR Coag (Bld) [Relative time] 2.5 {INR} [facility] Comment on above: Critical Value > 4.0 Whole blood prothrombin time Ordered By: Carlos Cavazos on 12-07-2022 PT Coag (Bld) [Time] 26.9 s 11.7-14.9 [facility] Amorphous sediment detection in urine sediment by light microscopyOrdered By: Carlos Cavazos on 11-24-2022 Amorphous sediment LM Ql (Urine sed) 1+ [facility] Basophil percentageOrdered B y: Carlos Cavazos on 11-24-2022 Basophil percentage 0 SEEN /hpf 0-5 [facility] Bilirubin [Mass/Vol] 0.30 mg/dL 0.20-1.00 [facility] Comment on above: For patients on eltr ombopag therapy, use of Dimension [place] TBIL is not recommended. Chloride [Moles/Vol] 107 mmol/L 98-107 [facility] Glucose [Mass/Vol] 95 mg/dL 74-106 [facility] Potassium [Moles/Vol] 4.2 mmol/L 3.5-5.1 [facility] Protein [Mass/Vol] 6.9 g/dL 6.4-8.2 [facility] Sodium [Moles/Vol] 138 mmol/L 136-145 [facility] WBC (Bld) [#/Vol] 10.4 10*3/uL 4.4-11.0 [facility] Bilirubin Test strip Ql (U)O rdered By: Carlos Cavazos on 11-24-2022 Bilirubin Ql (U) Negative Negative [facility] Blood erythrocytes count (nu mber/volume)Ordered By: Carlos Cavazos on 11-24-2022 RBC (Bld) [#/Vol] 4.44 10*6/uL 4.6-6.2 [facility] Blood hemoglobin measurement (mass/volume)Ordered By: Carlos Cavazos on 11-24-2022 Hemoglobin (Bld) [Mass/Vol] 11.8 g/dL 13.0-16.5 [facility] Blood platelet mean volumeOr dered By: Carlos Cavazos on 11-24-2022 Platelet mean volume (Bld) [Entitic vol] 9.7 fL 6.2-12.0 [facility] Calcium oxalate crystals det ection in urine sediment by light microscopyOrdered By: Carlos Cavazos on 11-24-2022 Calcium oxalate crystals LM Ql (Urine sed) RARE /hpf [facility] Culture, urineOrdered By: Sharif Crouch on 11-24-2022 Bacteria identified Cx Nom (U) Positive [facility] Determination of erythrocyte mean corpuscular volume (MCV)Ordered By: Carlos Cavazos on 11-24-2022 MCV (RBC) [Entitic vol] 84.7 fL 80-94 [facility] Hematocrit Auto (Bld) [Volum e fraction]Ordered By: Carlos Cavazos on 11-24-2022 Hematocrit (Bld) [Volume fraction] 37.6 % 40-54 [facility] Ketones Test strip Ql (U)Ord ered By: Carlos Cavazos on 11-24-2022 Ketones Ql (U) Negative Negative [facility] Laboratory - Chemistry and C hemistry - challengeOrdered By: Carlos Cavazos on 11-24-2022 ALP [Catalytic activity/Vol] 103 U/L 45-117 [facility] ALT [Catalytic activity/Vol] 14 U/L 16-61 [facility] CO2 [Moles/Vol] 26.0 mmol/L 21.0-32.0 [facility] Globulin (S) [Mass/Vol] 4.0 g/dL 2.2-4.2 [facility] Urea nitrogen/Creatinine [Mass ratio] 24.1 mg/mg 10-20 [facility] Laboratory - Hematology and Cell countsOrdered By: Carlos Cavazos on 11-24-2022 Erythrocyte distribution width (RBC) [Entitic vol] 49.4 fL 35.1-43.9 [facility] Erythrocyte distribution width (RBC) [Ratio] 16.0 % 11.6-14.6 [facility] MCH (RBC) [Entitic mass] 26.6 pg 27.0-32.0 [facility] MCHC Auto (RBC) [Mass/Vol]Or dered By: Carlos Cavazos on 11-24-2022 MCHC (RBC) [Mass/Vol] 31.4 g/dL 32-36 [facility] Mucus LM Ql (Urine sed)Order ed By: Carlos Cavazos on 11-24-2022 Mucus Ql (Urine sed) 0 SEEN /hpf [facility] Nitrite Test strip Ql (U)Ord ered By: Carlos Cavazos on 11-24-2022 Nitrite Ql (U) Negative Negative [facility] No Panel InformationOrdered By: Carlos Cavazos on 11-24-2022 Estimated GFR (MDRD) Amer 118 mL/min >60 [facility] Comment on above: GFR Calc Estimated GFR (MDRD) Non-Af Amer 97 mL/min >60 [facility] Comment on above: Non- GFR Calc Platelets bldOrdered By: Ted Cavazos on 11-24-2022 Platelets (Bld) [#/Vol] 309 10*3/uL 150-450 [facility] Protein Test strip Ql (U)Ord ered By: Carlos Cavazos on 11-24-2022 Protein Ql (U) Negative Negative [facility] Serum or plasma albumin oral urement (mass/volume)Ordered By: Carlos Cavazos on 11-24-2022 Albumin [Mass/Vol] 2.9 g/dL 3.2-5.0 [facility] Serum or plasma albumin/glob ulin mass ratioOrdered By: Carlos Cavazos on 11-24-2022 Albumin/Globulin [Mass ratio] 0.7 {ratio} 0.9-2.4 [facility] Serum or plasma calcium oral urement (mass/volume)Ordered By: Carlos Cavazos on 11-24-2022 Calcium [Mass/Vol] 8.7 mg/dL 8.5-10.1 [facility] Serum or plasma creatinine m easurement (mass/volume)Ordered By: Carlos Cavazos on 11-24-2022 Creatinine [Mass/Vol] 0.83 mg/dL 0.70-1.30 [facility] Comment on above: The validity of the calculated GFR & GFRAA in patients over 70 years has not been determined. Clinical correlation is essential. Serum or plasma urea nitroge n measurement (mass/volume)Ordered By: Carlos Cavazos on 11-24-2022 Urea nitrogen [Mass/Vol] 20 mg/dL 7-18 [facility] [facility] epithelial cells de tection in urine sediment by light microscopyOrdered By: Carlos Cavazos on 11-24-2022 Epithelial cells.squamous LM Ql (Urine sed) 0 SEEN /hpf 0-5 [facility] Thin prep Papanicolaou smear with manual screeningOrdered By: Carlos Cavazos on 11-24-2022 Thin prep Papanicolaou smear with manual screening 10 U/L 15-37 [facility] Thin prep Papanicolaou smear with manual screening 5 5-15 [facility] Urine blood detectionOrdered By: Carlos Cavazos on 11-24-2022 RBC Ql (U) Negative Negative [facility] RBC Ql (U) 0 SEEN /hpf 0-5 [facility] Urine clarityOrdered By: Ted Cavazos on 11-24-2022 Clarity (U) Clear Clear [facility] Urine color determinationOrd ered By: Carlos Cavazos on 11-24-2022 Color (U) Yellow Yellow [facility] Urine glucose detectionOrder ed By: Carlos Cavazos on 11-24-2022 Glucose Ql (U) Normal mg/dl Normal [facility] Urine leukocyte esterase det ection by dipstickOrdered By: Carlos Cavazos on 11-24-2022 Leukocyte esterase Test strip Ql (U) Negative Negative [facility] Urine pHOrdered By: Carlos flores on 11-24-2022 pH (U) 7.0 [pH] 5.0 - 8.0 [facility] Urine sediment bacteria coun t by microscopy (number/high power field)Ordered By: Carlos Cavazos on 11-24-2022 Bacteria LM.HPF (Urine sed) [#/Area] 0 /[HPF] None Seen [facility] Urine specific gravity measu rementOrdered By: Carlos Cavazos on 11-24-2022 Specific gravity (U) [Rel density] 1.010 1.002-1.030 [facility] Urobilinogen Auto test strip Ql (U)Ordered By: Carlos Cavazos on 11-24-2022 Urobilinogen Ql (U) Normal mg/dl Normal [facility] Laboratory - CoagulationOrde red By: Carlos Cavazos on 11-23-2022 INR Coag (Bld) [Relative time] 2.2 {INR} [facility] Comment on above: Critical Value > 4.0 Whole blood prothrombin time Ordered By: Carlos Cavazos on 11-23-2022 PT Coag (Bld) [Time] 24.5 s 11.7-14.9 [facility] Basophil percentageOrdered B y: Carlos Cavazos on 11-22-2022 Chloride [Moles/Vol] 105 mmol/L 98-107 [facility] Glucose [Mass/Vol] 91 mg/dL 74-106 [facility] Potassium [Moles/Vol] 4.1 mmol/L 3.5-5.1 [facility] Sodium [Moles/Vol] 138 mmol/L 136-145 [facility] WBC (Bld) [#/Vol] 12.0 10*3/uL 4.4-11.0 [facility] Blood erythrocytes count (nu mber/volume)Ordered By: Carlos Cavazos on 11-22-2022 RBC (Bld) [#/Vol] 4.65 10*6/uL 4.6-6.2 [facility] Blood hemoglobin measurement (mass/volume)Ordered By: Carlos Cavazos on 11-22-2022 Hemoglobin (Bld) [Mass/Vol] 12.4 g/dL 13.0-16.5 [facility] Blood platelet mean volumeOr dered By: Carlos Cavazos on 11-22-2022 Platelet mean volume (Bld) [Entitic vol] 10.3 fL 6.2-12.0 [facility] Determination of erythrocyte mean corpuscular volume (MCV)Ordered By: Carlos Cavazos on 11-22-2022 MCV (RBC) [Entitic vol] 86.0 fL 80-94 [facility] Hematocrit Auto (Bld) [Volum e fraction]Ordered By: Carlos Cavazos on 11-22-2022 Hematocrit (Bld) [Volume fraction] 40.0 % 40-54 [facility] Laboratory - Chemistry and C hemistry - challengeOrdered By: Carlos Cavazos on 11-22-2022 CO2 [Moles/Vol] 25.0 mmol/L 21.0-32.0 [facility] Urea nitrogen/Creatinine [Mass ratio] 23.6 mg/mg 10-20 [facility] Laboratory - Hematology and Cell countsOrdered By: Carlos Cavazos on 11-22-2022 Erythrocyte distribution width (RBC) [Entitic vol] 50.0 fL 35.1-43.9 [facility] Erythrocyte distribution width (RBC) [Ratio] 15.9 % 11.6-14.6 [facility] MCH (RBC) [Entitic mass] 26.7 pg 27.0-32.0 [facility] MCHC Auto (RBC) [Mass/Vol]Or dered By: Carlos Cavazos on 11-22-2022 MCHC (RBC) [Mass/Vol] 31.0 g/dL 32-36 [facility] No Panel InformationOrdered By: Carlos Cavazos on 11-22-2022 Estimated GFR (MDRD) Amer 115 mL/min >60 [facility] Comment on above: GFR Calc Estimated GFR (MDRD) Non-Af Amer 95 mL/min >60 [facility] Comment on above: Non- GFR Calc Platelets bldOrdered By: Ted Cavazos on 11-22-2022 Platelets (Bld) [#/Vol] 320 10*3/uL 150-450 [facility] Serum or plasma calcium oral urement (mass/volume)Ordered By: Carlos Cavazos on 11-22-2022 Calcium [Mass/Vol] 8.7 mg/dL 8.5-10.1 [facility] Serum or plasma creatinine m easurement (mass/volume)Ordered By: Carlos Cavazos on 11-22-2022 Creatinine [Mass/Vol] 0.85 mg/dL 0.70-1.30 [facility] Comment on above: The validity of the calculated GFR & GFRAA in patients over 70 years has not been determined. Clinical correlation is essential. Serum or plasma urea nitroge n measurement (mass/volume)Ordered By: Carlos Cavazos on 11-22-2022 Urea nitrogen [Mass/Vol] 20 mg/dL 7-18 [facility] Thin prep Papanicolaou smear with manual screeningOrdered By: Carlos Cavazos on 11-22-2022 Thin prep Papanicolaou smear with manual screening 8 5-15 [facility] Laboratory - CoagulationOrde red By: Carlos Cavazos on 11-09-2022 INR Coag (Bld) [Relative time] 2.1 {INR} [facility] Comment on above: Critical Value > 4.0 Whole blood prothrombin time Ordered By: Carlos Cavazos on 11-09-2022 PT Coag (Bld) [Time] 22.6 s 11.7-14.9 [facility] Laboratory - CoagulationOrde red By: Carlos Cavazos on 10-26-2022 INR Coag (Bld) [Relative time] 2.6 {INR} [facility] Comment on above: Critical Value > 4.0 Whole blood prothrombin time Ordered By: Carlos Cavazos on 10-26-2022 PT Coag (Bld) [Time] 28.5 s 11.7-14.9 [facility] Laboratory - CoagulationOrde red By: Carlos Cavazos on 10-12-2022 INR Coag (Bld) [Relative time] 2.4 {INR} [facility] Comment on above: Critical Value > 4.0 Whole blood prothrombin time Ordered By: Carlos Cavazos on 10-12-2022 PT Coag (Bld) [Time] 26.4 s 11.7-14.9 [facility] Laboratory - CoagulationOrde red By: Carlos Cavazos on 10-05-2022 INR Coag (Bld) [Relative time] 2.6 {INR} [facility] Comment on above: Critical Value > 4.0 Whole blood prothrombin time Ordered By: Carlos Cavazos on 10-05-2022 PT Coag (Bld) [Time] 28.0 s 11.7-14.9 [facility] Laboratory - CoagulationOrde red By: Carlos Cavazos on 09-28-2022 INR Coag (Bld) [Relative time] 2.7 {INR} [facility] Comment on above: Critical Value > 4.0 Whole blood prothrombin time Ordered By: Carlos Cavazos on 09-28-2022 PT Coag (Bld) [Time] 28.9 s 11.7-14.9 [facility] Laboratory - CoagulationOrde red By: Carlos Cavazos on 09-14-2022 INR Coag (Bld) [Relative time] 2.5 {INR} [facility] Comment on above: Critical Value > 4.0 Whole blood prothrombin time Ordered By: Carlos Cavazos on 09-14-2022 PT Coag (Bld) [Time] 27.4 s 11.7-14.9 [facility] Laboratory - CoagulationOrde red By: Carlos Cavazos on 08-31-2022 INR Coag (Bld) [Relative time] 2.3 {INR} [facility] Comment on above: Critical Value > 4.0 Whole blood prothrombin time Ordered By: Carlos Cavazos on 08-31-2022 PT Coag (Bld) [Time] 25.4 s 11.7-14.9 [facility] Basophil percentageOrdered B y: Carlos Cavazos on 08-23-2022 Chloride [Moles/Vol] 108 mmol/L 98-107 [facility] Glucose [Mass/Vol] 86 mg/dL 74-106 [facility] Potassium [Moles/Vol] 4.3 mmol/L 3.5-5.1 [facility] Sodium [Moles/Vol] 136 mmol/L 136-145 [facility] WBC (Bld) [#/Vol] 10.0 10*3/uL 4.4-11.0 [facility] Blood erythrocytes count (nu mber/volume)Ordered By: Carlos Cavazos on 08-23-2022 RBC (Bld) [#/Vol] 4.77 10*6/uL 4.6-6.2 [facility] Blood hemoglobin measurement (mass/volume)Ordered By: Carlos Cavazos on 08-23-2022 Hemoglobin (Bld) [Mass/Vol] 12.5 g/dL 13.0-16.5 [facility] Blood platelet mean volumeOr dered By: Carlos Cavazos on 08-23-2022 Platelet mean volume (Bld) [Entitic vol] 11.0 fL 6.2-12.0 [facility] Determination of erythrocyte mean corpuscular volume (MCV)Ordered By: Carlos Cavazos on 08-23-2022 MCV (RBC) [Entitic vol] 84.3 fL 80-94 [facility] Hematocrit Auto (Bld) [Volum e fraction]Ordered By: Carlos Cavazos on 08-23-2022 Hematocrit (Bld) [Volume fraction] 40.2 % 40-54 [facility] Laboratory - Chemistry and C hemistry - challengeOrdered By: Carlos Cavazos on 08-23-2022 CO2 [Moles/Vol] 24.0 mmol/L 21.0-32.0 [facility] Urea nitrogen/Creatinine [Mass ratio] 22.8 mg/mg 10-20 [facility] Laboratory - Hematology and Cell countsOrdered By: Carlos Cavazos on 08-23-2022 Erythrocyte distribution width (RBC) [Entitic vol] 49.3 fL 35.1-43.9 [facility] Erythrocyte distribution width (RBC) [Ratio] 16.0 % 11.6-14.6 [facility] MCH (RBC) [Entitic mass] 26.2 pg 27.0-32.0 [facility] MCHC Auto (RBC) [Mass/Vol]Or dered By: Carlos Cavazos on 08-23-2022 MCHC (RBC) [Mass/Vol] 31.1 g/dL 32-36 [facility] No Panel InformationOrdered By: Carlos Cavazos on 08-23-2022 Estimated GFR (MDRD) Amer 134 mL/min >60 [facility] Comment on above: GFR Calc Estimated GFR (MDRD) Non-Af Amer 110 mL/min >60 [facility] Comment on above: Non- GFR Calc Platelets bldOrdered By: Ted Cavazos on 08-23-2022 Platelets (Bld) [#/Vol] 268 10*3/uL 150-450 [facility] Serum or plasma calcium oral urement (mass/volume)Ordered By: Carlos Cavazos on 08-23-2022 Calcium [Mass/Vol] 9.1 mg/dL 8.5-10.1 [facility] Serum or plasma creatinine m easurement (mass/volume)Ordered By: Carlos Cavazos on 08-23-2022 Creatinine [Mass/Vol] 0.74 mg/dL 0.70-1.30 [facility] Comment on above: The validity of the calculated GFR & GFRAA in patients over 70 years has not been determined. Clinical correlation is essential. Serum or plasma urea nitroge n measurement (mass/volume)Ordered By: Carlos Cavazos on 08-23-2022 Urea nitrogen [Mass/Vol] 17 mg/dL 7-18 [facility] Thin prep Papanicolaou smear with manual screeningOrdered By: Carlos Cavazos on 08-23-2022 Thin prep Papanicolaou smear with manual screening 4 5-15 [facility] Laboratory - CoagulationOrde red By: Carlos Cavazos on 08-17-2022 INR Coag (Bld) [Relative time] 2.8 {INR} [facility] Comment on above: Critical Value > 4.0 Whole blood prothrombin time Ordered By: Carlos Cavazos on 08-17-2022 PT Coag (Bld) [Time] 29.6 s 11.7-14.9 [facility] Laboratory - CoagulationOrde red By: Carlos Cavazos on 08-14-2022 INR Coag (Bld) [Relative time] 3.9 {INR} [facility] Comment on above: Critical Value > 4.0 Whole blood prothrombin time Ordered By: Carlos Cavazos on 08-14-2022 PT Coag (Bld) [Time] 40.6 s 11.7-14.9 [facility] Laboratory - CoagulationOrde red By: Carlos Cavazos on 07-31-2022 INR Coag (Bld) [Relative time] 2.5 {INR} [facility] Comment on above: Critical Value > 4.0 Whole blood prothrombin time Ordered By: Carlos Cavazos on 07-31-2022 PT Coag (Bld) [Time] 26.8 s 11.7-14.9 [facility] INR in Blood by Coagulation assayOrdered By: Carlos Cavazos on 07-24-2022 INR Coag (Bld) [Relative time] 2.3 {INR} [facility] Laboratory - CoagulationOrde red By: Carlos Cavazos on 07-24-2022 PT Coag (PPP) [Time] 24.7 s 11.7-14.9 [facility] Laboratory - CoagulationOrde red By: Carlos Cavazos on 07-20-2022 INR Coag (Bld) [Relative time] 1.9 {INR} [facility] Comment on above: Critical Value > 4.0 Whole blood prothrombin time Ordered By: Carlos Cavazos on 07-20-2022 PT Coag (Bld) [Time] 20.6 s 11.7-14.9 [facility] Laboratory - CoagulationOrde red By: Carlos Cavazos on 07-17-2022 INR Coag (Bld) [Relative time] 1.3 {INR} [facility] Comment on above: Critical Value > 4.0 Whole blood prothrombin time Ordered By: Carlos Cavazos on 07-17-2022 PT Coag (Bld) [Time] 15.9 s 11.7-14.9 [facility] Basophil percentageOrdered B y: Carlos Cavazos on 07-11-2022 Chloride [Moles/Vol] 105 mmol/L 98-107 [facility] Glucose [Mass/Vol] 97 mg/dL 74-106 [facility] Potassium [Moles/Vol] 3.9 mmol/L 3.5-5.1 [facility] Sodium [Moles/Vol] 140 mmol/L 136-145 [facility] WBC (Bld) [#/Vol] 9.4 10*3/uL 4.4-11.0 [facility] Blood erythrocytes count (nu mber/volume)Ordered By: Carlos Cavazos on 07-11-2022 RBC (Bld) [#/Vol] 4.66 10*6/uL 4.6-6.2 [facility] Blood hemoglobin measurement (mass/volume)Ordered By: Carlos Cavazos on 07-11-2022 Hemoglobin (Bld) [Mass/Vol] 12.0 g/dL 13.0-16.5 [facility] Blood platelet mean volumeOr dered By: Carlos Cavazos on 07-11-2022 Platelet mean volume (Bld) [Entitic vol] 10.4 fL 6.2-12.0 [facility] Determination of erythrocyte mean corpuscular volume (MCV)Ordered By: Carlos Cavazos on 07-11-2022 MCV (RBC) [Entitic vol] 83.7 fL 80-94 [facility] Hematocrit Auto (Bld) [Volum e fraction]Ordered By: Carlos Cavazos on 07-11-2022 Hematocrit (Bld) [Volume fraction] 39.0 % 40-54 [facility] Laboratory - Chemistry and C hemistry - challengeOrdered By: Carlos Cavazos on 07-11-2022 CO2 [Moles/Vol] 28.0 mmol/L 21.0-32.0 [facility] Urea nitrogen/Creatinine [Mass ratio] 23.0 mg/mg 10-20 [facility] Laboratory - Hematology and Cell countsOrdered By: Carlos Cavazos on 07-11-2022 Erythrocyte distribution width (RBC) [Entitic vol] 51.0 fL 35.1-43.9 [facility] Erythrocyte distribution width (RBC) [Ratio] 16.8 % 11.6-14.6 [facility] MCH (RBC) [Entitic mass] 25.8 pg 27.0-32.0 [facility] MCHC Auto (RBC) [Mass/Vol]Or dered By: Carlos Cavazos on 07-11-2022 MCHC (RBC) [Mass/Vol] 30.8 g/dL 32-36 [facility] No Panel InformationOrdered By: Carlos Cavazos on 07-11-2022 Estimated GFR (MDRD) Amer 126 mL/min >60 [facility] Comment on above: GFR Calc Estimated GFR (MDRD) Non-Af Amer 104 mL/min >60 [facility] Comment on above: Non- GFR Calc Platelets bldOrdered By: Pet noe Kenny on 07-11-2022 Platelets (Bld) [#/Vol] 291 10*3/uL 150-450 [facility] Serum or plasma calcium oral urement (mass/volume)Ordered By: Carlos Cavazos on 07-11-2022 Calcium [Mass/Vol] 9.2 mg/dL 8.5-10.1 [facility] Serum or plasma creatinine m easurement (mass/volume)Ordered By: Carlos Cavazos on 07-11-2022 Creatinine [Mass/Vol] 0.78 mg/dL 0.70-1.30 [facility] Comment on above: The validity of the calculated GFR & GFRAA in patients over 70 years has not been determined. Clinical correlation is essential. Serum or plasma urea nitroge n measurement (mass/volume)Ordered By: Carlos Cavazos on 07-11-2022 Urea nitrogen [Mass/Vol] 18 mg/dL 7-18 [facility] Thin prep Papanicolaou smear with manual screeningOrdered By: Carlos Cavazos on 07-11-2022 Thin prep Papanicolaou smear with manual screening 7 5-15 [facility] Laboratory - CoagulationOrde red By: Carlos Cavazos on 07-10-2022 INR Coag (Bld) [Relative time] 1.8 {INR} [facility] Comment on above: Critical Value > 4.0 Whole blood prothrombin time Ordered By: Carlos Cavazos on 07-10-2022 PT Coag (Bld) [Time] 21.0 s 11.7-14.9 [facility] Laboratory - CoagulationOrde red By: Carlos Cavazos on 07-03-2022 INR Coag (Bld) [Relative time] 1.9 {INR} [facility] Comment on above: Critical Value > 4.0 Whole blood prothrombin time Ordered By: Carlos Cavazos on 07-03-2022 PT Coag (Bld) [Time] 22.7 s 11.7-14.9 [facility] INR in Blood by Coagulation assayOrdered By: Carlos Cavazos on 06-27-2022 INR Coag (Bld) [Relative time] 2.9 {INR} [facility] Laboratory - CoagulationOrde red By: Carlos Cavazos on 06-27-2022 PT Coag (PPP) [Time] 29.9 s 11.7-14.9 [facility] Laboratory - CoagulationOrde red By: Carlos Cavazos on 06-13-2022 INR Coag (Bld) [Relative time] 2.1 {INR} [facility] Comment on above: Critical Value > 4.0 Whole blood prothrombin time Ordered By: Carlos Cavazos on 06-13-2022 PT Coag (Bld) [Time] 24.4 s 11.7-14.9 [facility] Laboratory - CoagulationOrde red By: Carlos Cavazos on 06-06-2022 INR Coag (Bld) [Relative time] 1.5 {INR} [facility] Comment on above: Critical Value > 4.0 Whole blood prothrombin time Ordered By: Carlos Cavazos on 06-06-2022 PT Coag (Bld) [Time] 18.4 s 11.7-14.9 [facility] Basophil percentageOrdered B y: Carlos Cavazos on 05-30-2022 Chloride [Moles/Vol] 105 mmol/L 98-107 [facility] Glucose [Mass/Vol] 95 mg/dL 74-106 [facility] Potassium [Moles/Vol] 3.9 mmol/L 3.5-5.1 [facility] Sodium [Moles/Vol] 140 mmol/L 136-145 [facility] WBC (Bld) [#/Vol] 7.6 10*3/uL 4.4-11.0 [facility] Blood erythrocytes count (nu mber/volume)Ordered By: Carlos Cavazos on 05-30-2022 RBC (Bld) [#/Vol] 4.79 10*6/uL 4.6-6.2 [facility] Blood hemoglobin measurement (mass/volume)Ordered By: Carlos Cavazos on 05-30-2022 Hemoglobin (Bld) [Mass/Vol] 12.1 g/dL 13.0-16.5 [facility] Blood platelet mean volumeOr dered By: Carlos Cavazos on 05-30-2022 Platelet mean volume (Bld) [Entitic vol] 10.4 fL 6.2-12.0 [facility] Determination of erythrocyte mean corpuscular volume (MCV)Ordered By: Carlos Cavazos on 05-30-2022 MCV (RBC) [Entitic vol] 82.5 fL 80-94 [facility] Hematocrit Auto (Bld) [Volum e fraction]Ordered By: Carlos Cavazos on 05-30-2022 Hematocrit (Bld) [Volume fraction] 39.5 % 40-54 [facility] INR in Blood by Coagulation assayOrdered By: Carlos Cavazos on 05-30-2022 INR Coag (Bld) [Relative time] 1.9 {INR} [facility] Laboratory - Chemistry and C hemistry - challengeOrdered By: Carlos Cavazos on 05-30-2022 CO2 [Moles/Vol] 27.0 mmol/L 21.0-32.0 [facility] Urea nitrogen/Creatinine [Mass ratio] 21.4 mg/mg 10-20 [facility] Laboratory - CoagulationOrde red By: Carlos Cavazos on 05-30-2022 PT Coag (PPP) [Time] 21.6 s 11.7-14.9 [facility] Laboratory - Hematology and Cell countsOrdered By: Carlos Cavazos on 05-30-2022 Erythrocyte distribution width (RBC) [Entitic vol] 48.8 fL 35.1-43.9 [facility] Erythrocyte distribution width (RBC) [Ratio] 16.2 % 11.6-14.6 [facility] MCH (RBC) [Entitic mass] 25.3 pg 27.0-32.0 [facility] MCHC Auto (RBC) [Mass/Vol]Or dered By: Carlos Cavazos on 05-30-2022 MCHC (RBC) [Mass/Vol] 30.6 g/dL 32-36 [facility] No Panel InformationOrdered By: Carlos Cavazos on 05-30-2022 Estimated GFR (MDRD) Amer 133 mL/min >60 [facility] Comment on above: GFR Calc Estimated GFR (MDRD) Non-Af Amer 110 mL/min >60 [facility] Comment on above: Non- GFR Calc Platelets bldOrdered By: Ted Cavazos on 05-30-2022 Platelets (Bld) [#/Vol] 308 10*3/uL 150-450 [facility] Serum or plasma calcium oral urement (mass/volume)Ordered By: Carlos Cavazos on 05-30-2022 Calcium [Mass/Vol] 9.1 mg/dL 8.5-10.1 [facility] Serum or plasma creatinine m easurement (mass/volume)Ordered By: Carlos Cavazos on 05-30-2022 Creatinine [Mass/Vol] 0.75 mg/dL 0.70-1.30 [facility] Comment on above: The validity of the calculated GFR & GFRAA in patients over 70 years has not been determined. Clinical correlation is essential. Serum or plasma urea nitroge n measurement (mass/volume)Ordered By: Carlos Cavazos on 05-30-2022 Urea nitrogen [Mass/Vol] 16 mg/dL 7-18 [facility] Thin prep Papanicolaou smear with manual screeningOrdered By: Carlos Cavazos on 05-30-2022 Thin prep Papanicolaou smear with manual screening 8 5-15 [facility] Laboratory - CoagulationOrde red By: Carlos Cavazos on 05-16-2022 INR Coag (Bld) [Relative time] 2.6 {INR} [facility] Comment on above: Critical Value > 4.0 Whole blood prothrombin time Ordered By: Carlos Cavazos on 05-16-2022 PT Coag (Bld) [Time] 29.9 s 11.7-14.9 [facility] Laboratory - CoagulationOrde red By: Carlos Cavazos on 05-02-2022 INR Coag (Bld) [Relative time] 2.0 {INR} [facility] Comment on above: Critical Value > 4.0 Whole blood prothrombin time Ordered By: Carlos Cavazos on 05-02-2022 PT Coag (Bld) [Time] 23.2 s 11.7-14.9 [facility] Laboratory - CoagulationOrde red By: Carlos Cavazos on 04-27-2022 INR Coag (Bld) [Relative time] 2.7 {INR} [facility] Comment on above: Critical Value > 4.0 Whole blood prothrombin time Ordered By: Carlos Cavazos on 04-27-2022 PT Coag (Bld) [Time] 31.1 s 11.7-14.9 [facility] Laboratory - CoagulationOrde red By: Carlos Cavazos on 04-26-2022 INR Coag (Bld) [Relative time] 2.8 {INR} [facility] Comment on above: Critical Value > 4.0 Whole blood prothrombin time Ordered By: Carlos Cavazos on 04-26-2022 PT Coag (Bld) [Time] 32.6 s 11.7-14.9 [facility] Laboratory - CoagulationOrde red By: Carlos Cavazos on 04-11-2022 INR Coag (Bld) [Relative time] 2.9 {INR} [facility] Comment on above: Critical Value > 4.0 Whole blood prothrombin time Ordered By: Carlos Cavazos on 04-11-2022 PT Coag (Bld) [Time] 32.8 s 11.7-14.9 [facility] Laboratory - CoagulationOrde red By: Carlos Cavazos on 03-28-2022 INR Coag (Bld) [Relative time] 2.1 {INR} [facility] Comment on above: Critical Value > 4.0 Whole blood prothrombin time Ordered By: Carlos Cavazos on 03-28-2022 PT Coag (Bld) [Time] 24.8 s 11.7-14.9 [facility] Laboratory - CoagulationOrde red By: Carlos Cavazos on 03-23-2022 INR Coag (Bld) [Relative time] 1.7 {INR} [facility] Comment on above: Critical Value > 4.0 Whole blood prothrombin time Ordered By: Carlos Cavazos on 03-23-2022 PT Coag (Bld) [Time] 20.9 s 11.7-14.9 [facility] Laboratory - CoagulationOrde red By: Carlos Cavazos on 03-16-2022 INR Coag (Bld) [Relative time] 1.7 {INR} [facility] Comment on above: Critical Value > 4.0 Whole blood prothrombin time Ordered By: Carlos Cavazos on 03-16-2022 PT Coag (Bld) [Time] 19.9 s 11.7-14.9 [facility] Laboratory - CoagulationOrde red By: Carlos Cavazos on 03-09-2022 INR Coag (Bld) [Relative time] 1.8 {INR} [facility] Comment on above: Critical Value > 4.0 Whole blood prothrombin time Ordered By: Carlos Cavazos on 03-09-2022 PT Coag (Bld) [Time] 21.9 s 11.7-14.9 [facility] Laboratory - CoagulationOrde red By: Carlos Cavazos on 03-06-2022 INR Coag (Bld) [Relative time] 1.7 {INR} [facility] Comment on above: Critical Value > 4.0 Whole blood prothrombin time Ordered By: Carlos Cavazos on 03-06-2022 PT Coag (Bld) [Time] 20.0 s 11.7-14.9 [facility] CBC with Auto Differentialon 03-02-2022 [...] 14.5 10*3/uL High 3.6 - 10.7 10*3/uL [facility] Test Performed by [id number] [place] [address] CT HEAD WO CONTRASTon 2021 Patient Name: ANDREW SIFUENTES Computed Tomography ACCESSION EXAM DATE/TIME PROCEDURE ORDERING PROVIDER [id number] 03/02/2022 13:[address] Head or Brain w/o [id number] -LANETTE MUNGUIA Contrast CPT code 45960 Reason For Exam (CT Head or Brain [...] tubes (parent active on the left for CIGAR MAKING SUPERVISOR shunting and disconnected on the right). 2. No definite evidence of acute infarction (MRI more sensitive), mass lesion, nor hemorrhage. 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 Bilateral ventriculostomy tubes (parent active on the left for CIGAR MAKING SUPERVISOR shunting and disconnected on the right). 2. [...] Tomography ACCESSION EXAM DATE/TIME PROCEDURE ORDERING PROVIDER [id number] 03/02/2022 13:[address] Head or Brain w/o [id number] -LANETTE MUNGUIA Contrast CPT code 73377 Reason For Exam (CT Head or Brain [...] tubes (parent active on the left for CIGAR MAKING SUPERVISOR shunting and disconnected on the right). 2. No definite evidence of acute infarction (MRI more sensitive), mass lesion, nor hemorrhage. Report Dictated on Final Dictated: 03/02/2022 1:35 pm Dictating Physician: MD GUTIERREZ WILLIAM Signed Date and Time: 03/02/2022 1:39 pm Signed by: MD GUTIERREZ WILLIAM Transcribed Date and Time: 03/02/2022 1:35 Normal [facility] Comp Metabolic Panelon 03-02 Calcium [Mass/Vol] 9.1 mg/dL Normal 8.4-10.4 [facility] Comment on above: Performed By: #### H EMDF PT, CMP3 ####[place] [address] [facility] [place] ALP [Catalytic activity/Vol] 128 U/L High 38-126 [facility] Comment on above: Performed By: #### H EMDF PT, CMP3 ####[place] [address] [facility] [place] ALT [Catalytic activity/Vol] 12 U/L Normal 0-49 [facility] Comment on above: Result Comment: The ALT test is performed by an updated assay method. Please note that the reference intervals have been changed and are now sex specific. Performed By: #### H EMDF, PT, CMP3 ####[place] [address] [facility] [place] Anion gap [Moles/Vol] 7 mmol/L Normal 3-13 [facility] Comment on above: Performed By: #### H EMDF, PT, CMP3 ####[place] [address] [facility], [place] AST [Catalytic activity/Vol] 24 U/L Normal 15-46 [facility] Comment on above: Performed By: #### H EMDF, PT, CMP3 ####[place] [address] [facility], [place] Bilirubin [Mass/Vol] 0.4 mg/dL Normal 0.2-1.3 [facility] Comment on above: Performed By: #### H EMDF, PT, CMP3 ####[place] [address] [facility] [place] CO2 [Moles/Vol] 27 mmol/L Normal 22-30 [facility] Comment on above: Performed By: #### H EMDF, PT, CMP3 ####[address] [place] [address] Glucose [Mass/Vol] 109 mg/dL High 70-100 [facility] Comment on above: Performed By: #### H TIERA PT, CMP3 ####[address] [place] [address] Protein [Mass/Vol] 8.1 g/dL Normal 6.3-8.2 [facility] Comment on above: Performed By: #### H TIERA PT, CMP3 ####[address] [place] [address] Urea nitrogen [Mass/Vol] 22 mg/dL High 7-17 [facility] Comment on above: Performed By: #### H TIERA PT, CMP3 ####[address] [address] Creatinine [Mass/Vol] 0.63 mg/dL Normal 0.52-1.25 [facility] Comment on above: Performed By: #### H TIERA PT, CMP3 ####[address] [place] [address] eGFR OTHER > 90.0 Normal >60 [facility] Comment on above: Result Comment: KDIG [...] #### H TIERA PT, CMP3 ####[facility] [address], [place] GFR/1.73 sq M.predicted among blacks MDRD (S/P/Bld) [Vol rate/Area] mL/min/{1.73_m2} Normal >60 [facility] Comment on above: Performed By: #### H EMDF, PT, CMP3 ####[address] Albumin [Mass/Vol] 4.1 g/dL Normal 3.5-5.0 [facility] Comment on above: Performed By: #### H EMDF, PT, CMP3 ####[address] Chloride [Moles/Vol] 106 mmol/L Normal 98-107 [facility] Comment on above: Performed By: #### H EMDF, PT, CMP3 ####[address] Potassium [Moles/Vol] 3.7 mmol/L Normal 3.5-5.1 [facility] Comment on above: Performed By: #### H EMDF, PT, CMP3 ####[address] Sodium [Moles/Vol] 140 mmol/L Normal 135-145 [facility] Comment on above: Performed By: #### H EMDF, PT, CMP3 ####[address] Comprehensive Metabolic Pane kiel 03-02-2022 Albumin [Mass/Vol] 4.1 g/dL 3.5 - 5.0 g/dL [facility] ALP (Bld) [Catalytic activity/Vol] 128 U/L High 38 - 126 U/L [facility] ALT [Catalytic activity/Vol] 12 U/L 0 - 49 U/L [facility] Comment on above: The ALT test is perf ormed by an updated assay method. Please note that the reference intervals have been changed and are now sex specific. Anion gap [Moles/Vol] 7 mmol/L 3 - 13 mmol/L [facility] AST [Catalytic activity/Vol] 24 U/L 15 - [...] P INF mL/min [facility] EGFR IF NonAfrican Australian mL/min 60 - PINF mL/min [facility] Comment [...] mg/dL [facility] Test Performed by [facility], [address] [place] [address] [facility] ED Provider Noteon 2 ED Provider Note [...] male medical history of hydrocephalus status post CIGAR MAKING SUPERVISOR shunt, history of DVT on Coumadin who presents to the emergency department from [facility] for evaluation following mechanical fall. Patient rolled out of bed. Unwitnessed. Found down on ground by nursing staff. Nonambulatory at baseline. Patient reports he did not hit his head. Has no acute complaints. Denies any pain or traumatic injury. 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 Normal [facility] Hemogram w/ Autodiffon 03-02 Abs Baso Cnt 0.2 10*3/uL Normal 0.0-0.2 [facility] Comment on above: Performed By: #### H EMDHeydi PT, CMP3 ####[address] [address] Abs Neutrophile Cnt 10.7 10*3/uL High 1.8-7.0 [facility] Comment on above: Performed By: #### H EMDHeydi PT, CMP3 ####[address] [address] Basophils/100 WBC (Bld) 1.1 % Normal 0.0-2.0 [facility] Comment on above: Performed By: #### H EMDHeydi PT, CMP3 ####[address] [address] Eosinophils (Bld) [#/Vol] 0.1 10*3/uL Normal 0.0-0.5 [facility] Comment on above: Performed By: #### H EMDF PT, CMP3 ####[address] [address] [place] [address] Eosinophils/100 WBC (Bld) 0.5 % Low 1.0-6.0 [facility] Comment on above: Performed By: #### H EMDF PT, CMP3 ####[address] [address] Granulocytes/100 WBC (Bld) 73.9 % Normal 40.0-80.0 [facility] Comment on above: Performed By: #### H EMDF PT, CMP3 ####[address] Lymphocytes (Bld) [#/Vol] 3.0 10*3/uL Normal 1.0-4.3 [facility] Comment on above: Performed By: #### H EMDF PT, CMP3 ####[address] Lymphocytes/100 WBC (Bld) 20.6 % Normal 20.0-40.0 [facility] Comment on above: Performed By: #### H EMDF, PT, CMP3 ####[address] Monocytes (Bld) [#/Vol] 0.6 10*3/uL Normal 0.0-0.8 [facility] Comment on above: Performed By: #### H EMDF PT, CMP3 ####[address] Monocytes/100 WBC (Bld) 3.9 % Normal 2.0-10.0 [facility] Comment on above: Performed By: #### H EMDF PT, CMP3 ####[address] Platelet mean volume (Bld) [Entitic vol] 8.5 fL Normal 7.4-12.4 [facility] Comment on above: Result Comment: MPV is a calculated measurement using platelet volume ratio. Performed By: #### H EMDF, PT, CMP3 ####[address] Platelets (Bld) [#/Vol] 411 10*3/uL Normal 140-440 [facility] Comment on above: Performed By: #### H EMDF, PT, CMP3 ####[address] Erythrocyte distribution width (RBC) [Ratio] 17.0 % High 11.5-14.5 [facility] Comment on above: Performed By: #### H EMDF, PT, CMP3 ####[address], [place] Hematocrit (Bld) [Volume fraction] 37.4 % Low 40.0-52.0 [facility] Comment on above: Performed By: #### H EMDF, PT, CMP3 ####[address] Hemoglobin (Bld) [Mass/Vol] 12.1 g/dL Low 13.0-18.0 [facility] Comment on above: Performed By: #### H EMDF, PT, CMP3 ####[address] MCH (RBC) [Entitic mass] 26.2 pg Normal 26.0-34.0 [facility] Comment on above: Performed By: #### H EMDF, PT, CMP3 ####[address] MCHC 32.3 % Normal 32.0-36.0 [facility] Comment on above: Performed By: #### H EMDF, PT, CMP3 ####[address] MCV (RBC) [Entitic vol] 81.1 fL Normal 80.0-98.0 [facility] Comment on above: Performed By: #### H EMDF, PT, CMP3 ####[address] RBC (Bld) [#/Vol] 4.61 10*6/uL Normal 4.40-5.90 [facility] Comment on above: Performed By: #### H EMDF, PT, CMP3 ####[address] WBC (Bld) [#/Vol] 14.5 10*3/uL High 3.6-10.7 [facility] Comment on above: Performed By: #### H EMDF, PT, CMP3 ####[address] Prothrombin Timeon 2 INR 1.9 High 0.9-1.1 [facility] Comment on above: Result Comment: Harry mmended [...] Performed By: #### H EMDF, PT, CMP3 ####[facility] [id number] [place], [place] PT Coag (PPP) [Time] 18.9 s High 9.0-12.0 [facility] Comment on above: Result Comment: . Performed By: #### H EMDF, PT, CMP3 ####[facility] [id number] [place], [place] Protime-INRon 03-02-2022 INR Coag (Bld) [Relative time] 1.9 {INR} High [facility] Comment on above: Recommended Anticoag ulant Therapy: [...] review of laboratory results Abnormal [facility] PT Coag (PPP) [Time] 18.9 s High 9.0 - 12.0 s [facility] Comment on above: . Test Performed by [facility], [address] [place] [address] [facility] Laboratory - CoagulationOrde red By: Carlos Cavazos on 02-20-2022 INR Coag (Bld) [Relative time] 2.6 {INR} [facility] Comment on above: Critical Value > 4.0 Whole blood prothrombin time Ordered By: Carlos Cavazos on 02-20-2022 PT Coag (Bld) [Time] 30.1 s 11.7-14.9 [facility] Laboratory - CoagulationOrde red By: Carlos Cavazos on 02-13-2022 INR Coag (Bld) [Relative time] 2.3 {INR} [facility] Comment on above: Critical Value > 4.0 Whole blood prothrombin time Ordered By: Carlos Cavazos on 02-13-2022 PT Coag (Bld) [Time] 26.7 s 11.7-14.9 [facility] Laboratory - CoagulationOrde red By: Carlos Cavazos on 02-06-2022 INR Coag (Bld) [Relative time] 2.3 {INR} [facility] Comment on above: Critical Value > 4.0 Whole blood prothrombin time Ordered By: Carlos Cavazos on 02-06-2022 PT Coag (Bld) [Time] 26.6 s 11.7-14.9 [facility] Laboratory - Coagulationon 0 01-30-2022 INR Coag (Bld) [Relative time] 1.7 {INR} [facility] Work Phone: Comment on above: Critical Value > 4.0 Whole blood prothrombin time on 01-30-2022 PT Coag (Bld) [Time] 20.1 s 11.7-14.9 [facility] Work Phone: Laboratory - Coagulationon 0 01-26-2022 INR Coag (Bld) [Relative time] 1.8 {INR} [facility] Work Phone: Comment on above: Critical Value > 4.0 Whole blood prothrombin time on 01-26-2022 PT Coag (Bld) [Time] 21.8 s 11.7-14.9 [facility] Work Phone: Laboratory - Coagulationon 0 01-19-2022 INR Coag (Bld) [Relative time] 2.2 {INR} [facility] Work Phone: Comment on above: Critical Value > 4.0 Whole blood prothrombin time on 01-19-2022 PT Coag (Bld) [Time] 25.7 s 11.7-14.9 [facility] Work Phone: INR in Blood by Coagulation assayon 01-10-2022 INR Coag (Bld) [Relative time] 1.8 {INR} [facility] Work Phone: Laboratory - Coagulationon 0 01-10-2022 PT Coag (PPP) [Time] 20.9 s 11.7-14.9 [facility] Work Phone: Basophil percentageon 2021 Chloride [Moles/Vol] 107 mmol/L 98-107 [facility] Work Phone: Glucose [Mass/Vol] 82 mg/dL 74-106 [facility] Work Phone: Potassium [Moles/Vol] 3.4 mmol/L 3.5-5.1 [facility] Work Phone: Sodium [Moles/Vol] 143 mmol/L 136-145 [facility] Work Phone: WBC (Bld) [#/Vol] 10.4 10*3/uL 4.4-11.0 [facility] Work Phone: Blood erythrocytes count (nu mber/volume)on 01-05-2022 RBC (Bld) [#/Vol] 4.27 10*6/uL 4.6-6.2 [facility] Work Phone: Blood hemoglobin measurement (mass/volume)on 01-05-2022 Hemoglobin (Bld) [Mass/Vol] 11.2 g/dL 13.0-16.5 [facility] Work Phone: Blood platelet mean volumeon 01-05-2022 Platelet mean volume (Bld) [Entitic vol] 10.3 fL 6.2-12.0 [facility] Work Phone: Determination of erythrocyte mean corpuscular volume (MCV)on 01-05-2022 MCV (RBC) [Entitic vol] 84.8 fL 80-94 [facility] Work Phone: Hematocrit Auto (Bld) [Volum e fraction]on 01-05-2022 Hematocrit (Bld) [Volume fraction] 36.2 % 40-54 [facility] Work Phone: Laboratory - Chemistry and C hemistry - challengeon 01-05-2022 CO2 [Moles/Vol] 28.0 mmol/L 21.0-32.0 [facility] Work Phone: Urea nitrogen/Creatinine [Mass ratio] 20.0 mg/mg 10-20 [facility] Work Phone: Laboratory - Hematology and Cell countson 01-05-2022 Erythrocyte distribution width (RBC) [Entitic vol] 51.8 fL 35.1-43.9 [facility] Work Phone: Erythrocyte distribution width (RBC) [Ratio] 16.8 % 11.6-14.6 [facility] Work Phone: MCH (RBC) [Entitic mass] 26.2 pg 27.0-32.0 [facility] Work Phone: MCHC Auto (RBC) [Mass/Vol]on 01-05-2022 MCHC (RBC) [Mass/Vol] 30.9 g/dL 32-36 [facility] Work Phone: No Panel Informationon 01-05 Estimated GFR (MDRD) Amer 133 mL/min >60 [facility] Work Phone: Comment on above: GFR Calc Estimated GFR (MDRD) Non-Af Amer 110 mL/min >60 [facility] Work Phone: Comment on above: Non- GFR Calc Platelets bldon 01-05-2022 Platelets (Bld) [#/Vol] 373 10*3/uL 150-450 [facility] Work Phone: Serum or plasma calcium oral urement (mass/volume)on 01-05-2022 Calcium [Mass/Vol] 8.8 mg/dL 8.5-10.1 [facility] Work Phone: Serum or plasma creatinine m easurement (mass/volume)on 01-05-2022 Creatinine [Mass/Vol] 0.75 mg/dL 0.70-1.30 [facility] Work Phone: Comment on above: The validity of the calculated GFR & GFRAA in patients over 70 years has not been determined. Clinical correlation is essential. Serum or plasma urea nitroge n measurement (mass/volume)on 01-05-2022 Urea nitrogen [Mass/Vol] 15 mg/dL 7-18 [facility] Work Phone: Thin prep Papanicolaou smear with manual screeningon 01-05-2022 Thin prep Papanicolaou smear with manual screening 8 5-15 [facility] Work Phone: Laboratory - Coagulationon 0 12-30-2021 INR Coag (Bld) [Relative time] 2.0 {INR} [facility] Work Phone: Comment on above: Critical Value > 4.0 Whole blood prothrombin time on 12-30-2021 PT Coag (Bld) [Time] 23.7 s 11.7-14.9 [facility] Work Phone: Basophil percentageon 2021 Chloride [Moles/Vol] 106 mmol/L 98-107 [facility] Work Phone: Glucose [Mass/Vol] 91 mg/dL 74-106 [facility] Work Phone: Potassium [Moles/Vol] 3.4 mmol/L 3.5-5.1 [facility] Work Phone: Sodium [Moles/Vol] 141 mmol/L 136-145 [facility] Work Phone: WBC (Bld) [#/Vol] 10.2 10*3/uL 4.4-11.0 [facility] Work Phone: Blood erythrocytes count (nu mber/volume)on 12-28-2021 RBC (Bld) [#/Vol] 4.22 10*6/uL 4.6-6.2 [facility] Work Phone: Blood hemoglobin measurement (mass/volume)on 12-28-2021 Hemoglobin (Bld) [Mass/Vol] 11.2 g/dL 13.0-16.5 [facility] Work Phone: Blood platelet mean volumeon 12-28-2021 Platelet mean volume (Bld) [Entitic vol] 10.1 fL 6.2-12.0 [facility] Work Phone: Determination of erythrocyte mean corpuscular volume (MCV)on 12-28-2021 MCV (RBC) [Entitic vol] 82.7 fL 80-94 [facility] Work Phone: Hematocrit Auto (Bld) [Volum e fraction]on 12-28-2021 Hematocrit (Bld) [Volume fraction] 34.9 % 40-54 [facility] Work Phone: Laboratory - Chemistry and C hemistry - challengeon 12-28-2021 CO2 [Moles/Vol] 30.0 mmol/L 21.0-32.0 [facility] Work Phone: Urea nitrogen/Creatinine [Mass ratio] 33.7 mg/mg 10-20 [facility] Work Phone: Laboratory - Hematology and Cell countson 12-28-2021 Erythrocyte distribution width (RBC) [Entitic vol] 49.1 fL 35.1-43.9 [facility] Work Phone: Erythrocyte distribution width (RBC) [Ratio] 16.5 % 11.6-14.6 [facility] Work Phone: MCH (RBC) [Entitic mass] 26.5 pg 27.0-32.0 [facility] Work Phone: MCHC Auto (RBC) [Mass/Vol]on 12-28-2021 MCHC (RBC) [Mass/Vol] 32.1 g/dL 32-36 [facility] Work Phone: No Panel Informationon 12-28 Estimated GFR (MDRD) Amer 174 mL/min >60 [facility] Work Phone: Comment on above: GFR Calc Estimated GFR (MDRD) Non-Af Amer 143 mL/min >60 [facility] Work Phone: Comment on above: Non- GFR Calc Platelets bldon 12-28-2021 Platelets (Bld) [#/Vol] 339 10*3/uL 150-450 [facility] Work Phone: Serum or plasma calcium oral urement (mass/volume)on 12-28-2021 Calcium [Mass/Vol] 8.6 mg/dL 8.5-10.1 [facility] Work Phone: Serum or plasma creatinine m easurement (mass/volume)on 12-28-2021 Creatinine [Mass/Vol] 0.59 mg/dL 0.70-1.30 [facility] Work Phone: Comment on above: The validity of the calculated GFR & GFRAA in patients over 70 years has not been determined. Clinical correlation is essential. Serum or plasma urea nitroge n measurement (mass/volume)on 12-28-2021 Urea nitrogen [Mass/Vol] 20 mg/dL 7-18 [facility] Work Phone: Thin prep Papanicolaou smear with manual screeningon 12-28-2021 Thin prep Papanicolaou smear with manual screening 5 5-15 [facility] Work Phone: CULTURE BLOODon 12-27-2021 Microscopic examination of blood, culture CULTURE BLOOD --> Status: F No growth at 5 days. Normal [facility] Comment on above: Performed By: #### C /BLD #### [facility] [address] [place] [id number] Laboratory - Coagulationon 0 12-26-2021 INR Coag (Bld) [Relative time] 1.7 {INR} [facility] Work Phone: Comment on above: Critical Value > 4.0 Whole blood prothrombin time on 12-26-2021 PT Coag (Bld) [Time] 20.8 s 11.7-14.9 [facility] Work Phone: Basic Metabolic Panelon 12-05 Calcium [Mass/Vol] 8.8 mg/dL Normal 8.4-10.4 [facility] Comment on above: Performed By: #### C RP2, ESR, HEMDF, BMP3 ####[facility] [id number] [place], [place] Anion gap [Moles/Vol] 6 mmol/L Normal 3-13 [facility] Comment on above: Performed By: #### C RP2, ESR, HEMDF, BMP3 ####[facility] [id number] [place], [place] CO2 [Moles/Vol] 27 mmol/L Normal 22-30 [facility] Comment on above: Performed By: #### C RP2, ESR, HEMDF, BMP3 ####[facility] [id number] [place], [place] Glucose [Mass/Vol] 100 mg/dL Normal 70-100 [facility] Comment on above: Performed By: #### C RP2, ESR, HEMDF, BMP3 ####[facility] [id number] [place], [place] Urea nitrogen [Mass/Vol] 18 mg/dL High 7-17 [facility] Comment on above: Performed By: #### C RP2, ESR, HEMDF, BMP3 ####[facility] [id number] [place], [place] Creatinine [Mass/Vol] 0.73 mg/dL Normal 0.52-1.25 [facility] Comment on above: Performed By: #### C RP2, ESR, HEMDF, BMP3 ####[facility] [id number] [place], [place] eGFR OTHER > 90.0 Normal >60 [facility] Comment on above: Result Comment: KDIG [...] By: #### C RP2, ESR, HEMDF, BMP3 ####[address] [place], [place] GFR/1.73 sq M.predicted among blacks MDRD (S/P/Bld) [Vol rate/Area] mL/min/{1.73_m2} Normal >60 [facility] Comment on above: Performed By: #### C RP2, ESR, HEMDF, BMP3 ####[address] [place], [place] Potassium [Moles/Vol] 3.7 mmol/L Normal 3.5-5.1 [facility] Comment on above: Performed By: #### C RP2, ESR, HEMDF, BMP3 ####[address] [place], [place] Chloride [Moles/Vol] 106 mmol/L Normal 98-107 [facility] Comment on above: Performed By: #### C RP2, ESR, HEMDF, BMP3 ####[address] [place], [place] Sodium [Moles/Vol] 139 mmol/L Normal 135-145 [facility] Comment on above: Performed By: #### C RP2, ESR, HEMDF, BMP3 ####[address] [place], [place] Anion gap [Moles/Vol] 6 mmol/L 3 - 13 mmol/L [facility] Calcium [Mass/Vol] 8.8 mg/dL 8.4 - 10. 4 mg/dL [facility] Chloride [Moles/Vol] 106 mmol/L 98 - 10 7 mmol/L [facility] CO2 [Moles/Vol] 27 mmol/L 22 - 30 mmol/L [facility] Creatinine [Mass/Vol] 0.73 mg/dL 0.52 - 1.25 mg/dL [facility] eGFR mL/min 60 - P INF mL/min [facility] EGFR IF NonAfrican Australian mL/min 60 - PINF mL/min [facility] Comment [...] 2021 Basophil percentage 25-50 SEEN /hpf 0-5 [facility] Work Phone: Chloride [Moles/Vol] 106 mmol/L 98-[address] [facility] Work Phone: Glucose [Mass/Vol] 93 mg/dL 74-106 [facility] Work Phone: Potassium [Moles/Vol] 3.5 mmol/L 3.5-5.1 [facility] Work Phone: Sodium [Moles/Vol] 140 mmol/L 136-145 [facility] Work Phone: WBC (Bld) [#/Vol] 9.6 10*3/uL 4.4-11.0 [facility] Work Phone: Bilirubin Test strip Ql (U)o n 12-22-2021 Bilirubin Ql (U) Negative Negative [facility] Work Phone: Blood erythrocytes count (nu mber/volume)on 12-22-2021 RBC (Bld) [#/Vol] 4.34 10*6/uL 4.6-6.2 [facility] Work Phone: Blood hemoglobin measurement (mass/volume)on 12-22-2021 Hemoglobin (Bld) [Mass/Vol] 11.5 g/dL 13.0-16.5 [facility] Work Phone: Blood platelet mean volumeon 12-22-2021 Platelet mean volume (Bld) [Entitic vol] 10.8 fL 6.2-12.0 [facility] Work Phone: C-Reactive Proteinon 022 CRP [Mass/Vol] 27.2 mg/L High 0.0-9.9 [facility] Comment on above: Result Comment: . Performed By: #### C RP2, ESR, HEMDF, BMP3 ####[employer] [id number] [place] [address] CRP [Mass/Vol] 27.2 mg/L High 0 - 9.9 mg/L [facility] Comment on above: . CBC with Auto [...] 10*3/uL [facility] Test Performed by [facility], [address] [place] [id number] [place] [address] LAB [facility], Flu A/B, and RSV C [facility] 12-22-2021 Influenza A by PCR Not detected [facility] A Influenza B by PCR Not detected [facility] A RSV PCR Not Detected. Expected Result: Not Detected _ Method: Real-time, RT-PCR This assay was developed by [employer] and distributed under an Emergency Use Authorization (EUA) granted by the FDA for the qualitative detection of nucleic acids from SARS-CoV-2, Influenza A, Influenza B, and Respiratory Syncytial Virus. Provider and patient fact sheets can be found at https://www.fda.gov/media /273407/download and https://www.fda.gov/media /598205/download. [facility] SARS-CoV-2 (COVID-19) RNA MEGAN+probe Ql (Unsp spec) Not detected [facility] Test Performed by [facility], [address] [place] [address] LAB [facility] CR Foot Complete 3+ Views [place] 12-22-2021 CR Foot Complete 3+ Views Left Patient Name: ANDREW SIFUENTES Diagnostic Radiology ACCESSION EXAM DATE/TIME PROCEDURE ORDERING PROVIDER [id number] 12/22/2021 00:09 EDT CR Foot Complete 3+ SANDY HIDALGO, HENRY Godoy Views Left CPT code 46057 Reason For Exam (CR Foot Complete 3+ [...] Transcribed Date and Time: 12/22/2021 0:21 Normal [facility] Calcium oxalate crystals det ection in urine sediment by light microscopyon 12-22-2021 Calcium oxalate crystals LM Ql (Urine sed) 1+ /hpf [facility] Work Phone: Determination of erythrocyte mean corpuscular volume (MCV)on 12-22-2021 MCV (RBC) [Entitic vol] 84.3 fL 80-94 [facility] Work Phone: ED Provider Noteon 2 ED Provider Note Emergency Department Encounter [facility] EMERGENCY DEPT Patient: Andrew Sifuentes : [...] leg for a while. According to EMS senior care staff completed x-ray of the lower extremity and there was concern for osteomyelitis hence transferring patient to the hospital. Patient states this time the wounds on the left lower extremity for extended period of time. He denies fevers or chills. Patient states senior care staff have been taking care of the wound for him. Focused exam: Blood pressure 108/67, pulse 77, temperature 97.9 ?F (36.6 ?C), temperature source Oral, resp. rate 16, height 5' 9" (1.753 m), weight 79.4 kg (175 lb), SpO2 96 %. [id number] in no acute distress. Alert and oriented [...] [employer] Sharon Olivia MD 12/22/21 0305 [facility] ED Provider Note [facility] EMERGENCY DEPT EMERGENCY DEPARTMENT ENCOUNTER Pt Name: Andrew Sifuentes Birthdate 1950 Date of evaluation: 12/21/2021 Provider: SANIA Lou CHIEF COMPLAINT Chief Complaint Patient presents with Osteomyelitis Patient from [facility], facility did xrays on left [...] Hemorrhoids Hydrocephalus, adult (HCC) Kidney stone Neuropathy [employer] (ventriculoperitoneal) shunt status SURGICAL HISTORY Past Surgical [...] Response: Confused Best Motor Response: Obeys commands [place] Coma Scale Score: 14 Patient symptoms are [...] soft. Tenderness: (more content not included)... Normal [facility] Hematocrit Auto (Bld) [Volum e fraction]on 12-22-2021 Hematocrit (Bld) [Volume fraction] 36.6 % 40-54 [facility] Work Phone: Hemogram w/ Autodiffon 12-22 Abs Baso Cnt 0.1 10*3/uL Normal 0.0-0.2 [facility] Comment on above: Performed By: #### C RP2, ESR, HEMDF, BMP3 ####[facility] [id number] [place] [address] Abs Neutrophile Cnt 5.9 10*3/uL Normal 1.8-7.0 [facility] Comment on above: Performed By: #### C RP2, ESR, HEMDF, BMP3 ####[facility] [id number] [place] [address] Basophils/100 WBC (Bld) 0.7 % Normal 0.0-2.0 [facility] Comment on above: Performed By: #### C RP2, ESR, HEMDF, BMP3 ####[facility] [id number] [place] [address] Eosinophils (Bld) [#/Vol] 0.2 10*3/uL Normal 0.0-0.5 [facility] Comment on above: Performed By: #### C RP2, ESR, HEMDF, BMP3 ####[address] Eosinophils/100 WBC (Bld) 2.3 % Normal 1.0-6.0 [facility] Comment on above: Performed By: #### C RP2, ESR, HEMDF, BMP3 ####[address] Erythrocyte distribution width (RBC) [Ratio] 17.5 % High 11.5-14.5 [facility] Comment on above: Performed By: #### C RP2, ESR, HEMDF, BMP3 ####[address] Granulocytes/100 WBC (Bld) 57.8 % Normal 40.0-80.0 [facility] Comment on above: Performed By: #### C RP2, ESR, HEMDF, BMP3 ####[address] Hematocrit (Bld) [Volume fraction] 33.3 % Low 40.0-52.0 [facility] Comment on above: Performed By: #### C RP2, ESR, HEMDF, BMP3 ####[address] Hemoglobin (Bld) [Mass/Vol] 11.0 g/dL Low 13.0-18.0 [facility] Comment on above: Performed By: #### C RP2, ESR, HEMDF, BMP3 ####[address] Lymphocytes (Bld) [#/Vol] 3.3 10*3/uL Normal 1.0-4.3 [facility] Comment on above: Performed By: #### C RP2, ESR, HEMDF, BMP3 ####[address] Lymphocytes/100 WBC (Bld) 33.0 % Normal 20.0-40.0 [facility] Comment on above: Performed By: #### C RP2, ESR, HEMDF, BMP3 ####[id number] [place], [place] MCH (RBC) [Entitic mass] 26.5 pg Normal 26.0-34.0 [facility] Comment on above: Performed By: #### C RP2, ESR, HEMDF, BMP3 ####[address] [place], [place] MCHC 33.1 % Normal 32.0-36.0 [facility] Comment on above: Performed By: #### C RP2, ESR, HEMDF, BMP3 ####[address] [place], [place] MCV (RBC) [Entitic vol] 80.2 fL Normal 80.0-98.0 [facility] Comment on above: Performed By: #### C RP2, ESR, HEMDF, BMP3 ####[address] [place], [place] Monocytes (Bld) [#/Vol] 0.6 10*3/uL Normal 0.0-0.8 [facility] Comment on above: Performed By: #### C RP2, ESR, HEMDF, BMP3 ####[address] [place], [place] Monocytes/100 WBC (Bld) 6.2 % Normal 2.0-10.0 [facility] Comment on above: Performed By: #### C RP2, ESR, HEMDF, BMP3 ####[address] Platelet mean volume (Bld) [Entitic vol] 8.0 fL Normal 7.4-12.4 [facility] Comment on above: Result Comment: MPV is a calculated measurement using platelet volume ratio. Performed By: #### C RP2, ESR, HEMDF, BMP3 ####[address] [place], [place] Platelets (Bld) [#/Vol] 368 10*3/uL Normal 140-440 [facility] Comment on above: Performed By: #### C RP2, ESR, HEMDF, BMP3 ####[facility] [place], [place] RBC (Bld) [#/Vol] 4.15 10*6/uL Low 4.40-5.90 [facility] Comment on above: Performed By: #### C RP2, ESR, HEMDF, BMP3 ####[facility], [place] WBC (Bld) [#/Vol] 10.1 10*3/uL Normal 3.6-10.7 [facility] Comment on above: Performed By: #### C RP2, ESR, HEMDF, BMP3 ####[facility] [place], [place] Ketones Test strip Ql (U)on 12-22-2021 Ketones Ql (U) Negative Negative [facility] Work Phone: Laboratory - Chemistry and C hemistry - challengeon 12-22-2021 CO2 [Moles/Vol] 27.0 mmol/L 21.0-32.0 [facility] Work Phone: Urea nitrogen/Creatinine [Mass ratio] 22.5 mg/mg 10-20 [facility] Work Phone: Laboratory - Hematology and Cell countson 12-22-2021 Erythrocyte distribution width (RBC) [Entitic vol] 49.1 fL 35.1-43.9 [facility] Work Phone: Erythrocyte distribution width (RBC) [Ratio] 16.1 % 11.6-14.6 [facility] Work Phone: MCH (RBC) [Entitic mass] 26.5 pg 27.0-32.0 [facility] Work Phone: MCHC Auto (RBC) [Mass/Vol]on 12-22-2021 MCHC (RBC) [Mass/Vol] 31.4 g/dL 32-36 [facility] Work Phone: Mucus LM Ql (Urine sed)on Mucus Ql (Urine sed) 0 SEEN /hpf [facility] Work Phone: Nitrite Test strip Ql (U)on 12-22-2021 Nitrite Ql (U) Positive Negative [facility] Work Phone: No Panel Informationon 12-22 Estimated GFR (MDRD) Amer 152 mL/min >60 [facility] Work Phone: Comment on above: GFR Calc Estimated GFR (MDRD) Non-Af Amer 125 mL/min >60 [facility] Work Phone: Comment on above: Non- GFR Calc Interpretation and review of laboratory results Abnormal [facility] Test Performed by [id number] [place] [address] LAB [facility] Platelets bldon 12-22-2021 Platelets (Bld) [#/Vol] 317 10*3/uL 150-450 [facility] Work Phone: Protein Test strip Ql (U)on 12-22-2021 Protein Ql (U) 30 mg/dl Negative [facility] Work Phone: SARS-CoV-2, Flu A/B and RSVo n 12-22-2021 SARS-CoV-2 (COVID-19) RNA MEGAN+probe Ql (Unsp spec) SARS-CoV-2 --> Status: F Not Detected. Flu A PCR --> Status: F Not Detected. Flu B PCR --> Status: F Not Detected. RSV PCR --> Status: F Not Detected. Expected Result: Not Detected _ Method: Real-time, RT-PCR This assay was developed by [employer] and distributed under an Emergency Use Authorization (EUA) granted by the FDA for the qualitative detection of nucleic acids from SARS-CoV-2, Influenza A, Influenza B, and Respiratory Syncytial Virus. Provider and patient fact sheets can be found at https://www.fda.gov/media /698426/download and https://www.fda.gov/media /989267/download. Expected Result: Not Detected _ Method: Real-time, RT-PCR This assay was developed by [employer] and distributed under an Emergency Use Authorization (EUA) granted by the FDA for the qualitative detection of nucleic acids from SARS-CoV-2, Influenza A, Influenza B, and Respiratory Syncytial Virus. Provider and patient fact sheets can be found at https://www.fda.gov/media /649895/download and https://www.fda.gov/media /494578/download. Normal [facility] Comment on above: Performed By: #### C VFLR ####[facility] [place] [address], [address] Sed Rateon 12-22-2021 Sed Rate 48 mm/h High 0-10 [facility] Comment on above: Performed By: #### C RP2, ESR, HEMDF, BMP3 ####[address] [place] [address] Sedimentation Rateon 022 Interpretation and review of laboratory results Abnormal [facility] Sed Rate 48 mm/h High 0 - 10 mm/h [facility] Test Performed by [facility], [place] [address] [facility] Serum or plasma calcium oral urement (mass/volume)on 12-22-2021 Calcium [Mass/Vol] 8.6 mg/dL 8.5-10.1 [facility] Work Phone: Serum or plasma creatinine m easurement (mass/volume)on 12-22-2021 Creatinine [Mass/Vol] 0.67 mg/dL 0.70-1.30 [facility] Work Phone: Comment on above: The validity of the calculated GFR & GFRAA in patients over 70 years has not been determined. Clinical correlation is essential. Serum or plasma urea nitroge n measurement (mass/volume)on 12-22-2021 Urea nitrogen [Mass/Vol] 15 mg/dL - [facility] Work Phone: Squamous epithelial cells de tection in urine sediment by light microscopyon 12-22-2021 Epithelial cells.squamous LM Ql (Urine sed) 0-5 SEEN /hpf 0-5 [facility] Work Phone: Thin prep Papanicolaou smear with manual screeningon 12-22-2021 Thin prep Papanicolaou smear with manual screening 7 5-15 [facility] Work Phone: Urine blood detectionon 12-05 RBC Ql (U) 150 /ul Negative [facility] Work Phone: RBC Ql (U) 10-25 SEEN /hpf 0-5 [facility] Work Phone: Urine clarityon 12-22-2021 Clarity (U) Sl. Cloudy Clear [facility] Work Phone: Urine color determinationon 12-22-2021 Color (U) Yellow Yellow [facility] Work Phone: Urine glucose detectionon Glucose Ql (U) Normal mg/dl Normal [facility] Work Phone: Urine leukocyte esterase det ection by dipstickon 12-22-2021 Leukocyte esterase Test strip Ql (U) 500 /ul Negative [facility] Work Phone: Urine pHon 12-22-2021 pH (U) 6.0 [pH] 5.0 - 8.0 [facility] Work Phone: Urine sediment bacteria coun t by microscopy (number/high power field)on 12-22-2021 Bacteria LM.HPF (Urine sed) [#/Area] 2 /[HPF] None Seen [facility] Work Phone: Urine specific gravity measu rementon 12-22-2021 Specific gravity (U) [Rel density] 1.020 1.002-1.030 [facility] Work Phone: Urobilinogen Auto test strip Ql (U)on 12-22-2021 Urobilinogen Ql (U) Normal mg/dl Normal [facility] Work Phone: XR FOOT LEFT (MIN 3 VIEWS)on 12-22-2021 Patient Name: ANDREW LARSEN Diagnostic Radiology ACCESSION EXAM DATE/TIME PROCEDURE ORDERING PROVIDER [id number] 12/22/2021 00:09 EDT CR Foot Complete 3+ SANDY HIDALGO JOHN M Views Left CPT code 06159 Reason For Exam (CR Foot Complete 3+ [...] JEFFREY Transcribed Date and Time: 12/22/2021 0:21 [facility] Albert Solano MD - 12/22/2021 Patient Name: ANDREW SIFUENTES Diagnostic Radiology ACCESSION EXAM DATE/TIME PROCEDURE ORDERING PROVIDER [id number] 12/22/2021 00:09 EDT CR Foot Complete 3+ SANDY HIDALGO JOHN M Views Left CPT code 74781 Reason For Exam (CR Foot Complete 3+ [...] JEFFREY Transcribed Date and Time: 12/22/2021 0:21 [facility] Work Phone: Radiology Study observation (narrative) [facility] Work Phone: XR FOOT LEFT (MIN 3 VIEWS)Or dered By: Albert Solano on 12-22-2021 [facility] Work Phone: Basophil percentageon 2021 Chloride [Moles/Vol] 103 mmol/L 98-107 [facility] Work Phone: [phone] Glucose [Mass/Vol] 92 mg/dL 74-106 [facility] Work Phone: Potassium [Moles/Vol] 3.5 mmol/L 3.5-5.1 [facility] Work Phone: Sodium [Moles/Vol] 138 mmol/L 136-145 [facility] Work Phone: WBC (Bld) [#/Vol] 11.2 10*3/uL 4.4-11.0 [facility] Work Phone: [phone] Blood erythrocytes count (nu mber/volume)on 12-19-2021 RBC (Bld) [#/Vol] 4.50 10*6/uL 4.6-6.2 [facility] Work Phone: [phone] Blood hemoglobin measurement (mass/volume)on 12-19-2021 Hemoglobin (Bld) [Mass/Vol] 12.2 g/dL 13.0-16.5 [facility] Work Phone: Blood platelet mean volumeon 12-19-2021 Platelet mean volume (Bld) [Entitic vol] 11.3 fL 6.2-12.0 [facility] Work Phone: Determination of erythrocyte mean corpuscular volume (MCV)on 12-19-2021 MCV (RBC) [Entitic vol] 85.6 fL 80-94 [facility] Work Phone: Hematocrit Auto (Bld) [Volum e fraction]on 12-19-2021 Hematocrit (Bld) [Volume fraction] 38.5 % 40-54 [facility] Work Phone: Laboratory - Chemistry and C hemistry - challengeon 12-19-2021 CO2 [Moles/Vol] 30.0 mmol/L 21.0-32.0 [facility] Work Phone: Urea nitrogen/Creatinine [Mass ratio] 27.1 mg/mg 10-20 [facility] Work Phone: Laboratory - Hematology and Cell countson 12-19-2021 Erythrocyte distribution width (RBC) [Entitic vol] 50.5 fL 35.1-43.9 [facility] Work Phone: Erythrocyte distribution width (RBC) [Ratio] 16.0 % 11.6-14.6 [facility] Work Phone: MCH (RBC) [Entitic mass] 27.1 pg 27.0-32.0 [facility] Work Phone: MCHC Auto (RBC) [Mass/Vol]on 12-19-2021 MCHC (RBC) [Mass/Vol] 31.7 g/dL 32-36 [facility] Work Phone: No Panel Informationon 12-19 Estimated GFR (MDRD) Amer 153 mL/min >60 [facility] Work Phone: Comment on above: GFR Calc Estimated GFR (MDRD) Non-Af Amer 126 mL/min >60 [facility] Work Phone: Comment on above: Non- GFR Calc Platelets bldon 12-19-2021 Platelets (Bld) [#/Vol] 363 10*3/uL 150-450 [facility] Work Phone: Serum or plasma calcium oral urement (mass/volume)on 12-19-2021 Calcium [Mass/Vol] 9.5 mg/dL 8.5-10.1 [facility] Work Phone: Serum or plasma creatinine m easurement (mass/volume)on 12-19-2021 Creatinine [Mass/Vol] 0.66 mg/dL 0.70-1.30 [facility] Work Phone: Comment on above: The validity of the calculated GFR & GFRAA in patients over 70 years has not been determined. Clinical correlation is essential. Serum or plasma urea nitroge n measurement (mass/volume)on 12-19-2021 Urea nitrogen [Mass/Vol] 18 mg/dL 7-18 [facility] Work Phone: Thin prep Papanicolaou smear with manual screeningon 12-19-2021 Thin prep Papanicolaou smear with manual screening 5 5-15 [facility] Work Phone: Laboratory - Coagulationon 0 12-12-2021 INR Coag (Bld) [Relative time] 2.0 {INR} [facility] Work Phone: Comment on above: Critical Value > 4.0 Whole blood prothrombin time on 12-12-2021 PT Coag (Bld) [Time] 23.9 s 11.7-14.9 [facility] Work Phone: ANES POSTPROC EVALon 022 ANES POSTPROC EVAL Normal [facility] Laboratory - Coagulationon 0 12-08-2021 INR Coag (Bld) [Relative time] 1.8 {INR} [facility] Work Phone: Comment on above: Critical Value > 4.0 Whole blood prothrombin time on 12-08-2021 PT Coag (Bld) [Time] 21.0 s 11.7-14.9 [facility] Work Phone: Absolute lymphocyte counton 12-05-2021 Lymphocytes Auto (Unsp spec) [#/Vol] 2.97 10*3/uL 0.83-4.51 [facility] Work Phone: Basophil percentageon 2021 Basophils/100 WBC (Bld) 0.6 % 0-1 [facility] Work Phone: Chloride [Moles/Vol] 106 mmol/L 98-107 [facility] Work Phone: Eosinophils/100 WBC (Bld) 2.3 % 0-5 [facility] Work Phone: Glucose [Mass/Vol] 107 mg/dL 74-106 [facility] Work Phone: Comment on above: Fasting Glucose resu lt from 100 to 125 mg/dL suggests IMPAIRED HOMEOSTASIS per A.D.A. criteria. Neutrophils (Bld) [#/Vol] 5.6 10*3/uL 2.0-7.7 [facility] Work Phone: [phone] Neutrophils/100 WBC (Bld) 60.2 % 47-70 [facility] Work Phone: [phone] Potassium [Moles/Vol] 3.4 mmol/L 3.5-5.1 [facility] Work Phone: Sodium [Moles/Vol] 139 mmol/L 136-145 [facility] Work Phone: WBC (Bld) [#/Vol] 9.3 10*3/uL 4.4-11.0 [facility] Work Phone: [phone] Blood erythrocytes count (nu mber/volume)on 12-05-2021 RBC (Bld) [#/Vol] 4.49 10*6/uL 4.6-6.2 [facility] Work Phone: Blood hemoglobin measurement (mass/volume)on 12-05-2021 Hemoglobin (Bld) [Mass/Vol] 12.1 g/dL 13.0-16.5 [facility] Work Phone: Blood lymphocytes/100 leukoc yteson 12-05-2021 Lymphocytes/100 WBC (Bld) 32.0 % 19-41 [facility] Work Phone: Blood monocytes/100 leukocyt eson 12-05-2021 Monocytes/100 WBC (Bld) 4.7 % 0-10 [facility] Work Phone: Blood platelet mean volumeon 12-05-2021 Platelet mean volume (Bld) [Entitic vol] 10.8 fL 6.2-12.0 [facility] Work Phone: Determination of erythrocyte mean corpuscular volume (MCV)on 12-05-2021 MCV (RBC) [Entitic vol] 84.9 fL 80-94 [facility] Work Phone: Hematocrit Auto (Bld) [Volum e fraction]on 12-05-2021 Hematocrit (Bld) [Volume fraction] 38.1 % 40-54 [facility] Work Phone: INR in Blood by Coagulation assayon 12-05-2021 INR Coag (Bld) [Relative time] 1.8 {INR} [facility] Work Phone: Laboratory - Chemistry and C hemistry - challengeon 12-05-2021 CO2 [Moles/Vol] 29.0 mmol/L 21.0-32.0 [facility] Work Phone: Urea nitrogen/Creatinine [Mass ratio] 25.4 mg/mg 10-20 [facility] Work Phone: Laboratory - Coagulationon 0 12-05-2021 PT Coag (PPP) [Time] 20.5 s 11.7-14.9 [facility] Work Phone: Laboratory - Hematology and Cell countson 12-05-2021 Erythrocyte distribution width (RBC) [Entitic vol] 48.5 fL 35.1-43.9 [facility] Work Phone: Erythrocyte distribution width (RBC) [Ratio] 15.7 % 11.6-14.6 [facility] Work Phone: Immature granulocytes/100 WBC (Bld) 0.200 % 0.0-0.9 [facility] Work Phone: Comment on above: IG% - Immature Granu locytes (promyelocytes, myelocytes and metamyelocytes) > 1% indicates that a LEFT SHIFT is Present. MCH (RBC) [Entitic mass] 26.9 pg 27.0-32.0 [facility] Work Phone: Nucleated RBC/100 WBC (Bld) [Ratio] 0 % 0-5 [facility] Work Phone: MCHC Auto (RBC) [Mass/Vol]on 12-05-2021 MCHC (RBC) [Mass/Vol] 31.8 g/dL 32-36 [facility] Work Phone: No Panel Informationon 12-05 Estimated GFR (MDRD) Amer 133 mL/min >60 [facility] Work Phone: Comment on above: GFR Calc Estimated GFR (MDRD) Non-Af Amer 110 mL/min >60 [facility] Work Phone: Comment on above: Non- GFR Calc Platelets bldon 12-05-2021 Platelets (Bld) [#/Vol] 363 10*3/uL 150-450 [facility] Work Phone: Serum or plasma calcium oral urement (mass/volume)on 12-05-2021 Calcium [Mass/Vol] 9.4 mg/dL 8.5-10.1 [facility] Work Phone: Serum or plasma creatinine m easurement (mass/volume)on 12-05-2021 Creatinine [Mass/Vol] 0.75 mg/dL 0.70-1.30 [facility] Work Phone: Comment on above: The validity of the calculated GFR & GFRAA in patients over 70 years has not been determined. Clinical correlation is essential. Serum or plasma urea nitroge n measurement (mass/volume)on 12-05-2021 Urea nitrogen [Mass/Vol] 19 mg/dL 7-18 [facility] Work Phone: Thin prep Papanicolaou smear with manual screeningon 12-05-2021 Thin prep Papanicolaou smear with manual screening 4 5-15 [facility] Work Phone: Basophil percentageon 2021 Basophil percentage 0 SEEN /hpf 0-5 [facility] Work Phone: Chloride [Moles/Vol] 104 mmol/L 98-107 [facility] Work Phone: Glucose [Mass/Vol] 90 mg/dL 74-106 [facility] Work Phone: Potassium [Moles/Vol] 3.7 mmol/L 3.5-5.1 [facility] Work Phone: Comment on above: Slight Hemolysis, Re sult may be falsely increased. Sodium [Moles/Vol] 138 mmol/L 136-145 [facility] Work Phone: WBC (Bld) [#/Vol] 10.7 10*3/uL 4.4-11.0 [facility] Work Phone: Bilirubin Test strip Ql (U)o n 12-01-2021 Bilirubin Ql (U) Negative Negative [facility] Work Phone: Blood erythrocytes count (nu mber/volume)on 12-01-2021 RBC (Bld) [#/Vol] 4.33 10*6/uL 4.6-6.2 [facility] Work Phone: Blood hemoglobin measurement (mass/volume)on 12-01-2021 Hemoglobin (Bld) [Mass/Vol] 11.6 g/dL 13.0-16.5 [facility] Work Phone: Blood platelet mean volumeon 12-01-2021 Platelet mean volume (Bld) [Entitic vol] 11.2 fL 6.2-12.0 [facility] Work Phone: Determination of erythrocyte mean corpuscular volume (MCV)on 12-01-2021 MCV (RBC) [Entitic vol] 85.2 fL 80-94 [facility] Work Phone: Hematocrit Auto (Bld) [Volum e fraction]on 12-01-2021 Hematocrit (Bld) [Volume fraction] 36.9 % 40-54 [facility] Work Phone: Ketones Test strip Ql (U)on 12-01-2021 Ketones Ql (U) Negative Negative [facility] Work Phone: Laboratory - Chemistry and C hemistry - challengeon 12-01-2021 CO2 [Moles/Vol] 27.0 mmol/L 21.0-32.0 [facility] Work Phone: Urea nitrogen/Creatinine [Mass ratio] 24.0 mg/mg 10-20 [facility] Work Phone: Laboratory - Coagulationon 0 12-01-2021 INR Coag (Bld) [Relative time] 1.6 {INR} [facility] Work Phone: Comment on above: Critical Value > 4.0 Laboratory - Hematology and Cell countson 12-01-2021 Erythrocyte distribution width (RBC) [Entitic vol] 47.9 fL 35.1-43.9 [facility] Work Phone: Erythrocyte distribution width (RBC) [Ratio] 15.5 % 11.6-14.6 [facility] Work Phone: MCH (RBC) [Entitic mass] 26.8 pg 27.0-32.0 [facility] Work Phone: MCHC Auto (RBC) [Mass/Vol]on 12-01-2021 MCHC (RBC) [Mass/Vol] 31.4 g/dL 32-36 [facility] Work Phone: Mucus LM Ql (Urine sed)on Mucus Ql (Urine sed) 0 SEEN /hpf [facility] Work Phone: Nitrite Test strip Ql (U)on 12-01-2021 Nitrite Ql (U) Negative Negative [facility] Work Phone: No Panel Informationon 12-01 Estimated GFR (MDRD) Amer 133 mL/min >60 [facility] Work Phone: Comment on above: GFR Calc Estimated GFR (MDRD) Non-Af Amer 110 mL/min >60 [facility] Work Phone: Comment on above: Non- GFR Calc Platelets bldon 12-01-2021 Platelets (Bld) [#/Vol] 336 10*3/uL 150-450 [facility] Work Phone: Protein Test strip Ql (U)on 12-01-2021 Protein Ql (U) 30 mg/dl Negative [facility] Work Phone: Serum or plasma calcium oral urement (mass/volume)on 12-01-2021 Calcium [Mass/Vol] 9.4 mg/dL 8.5-10.1 [facility] Work Phone: Serum or plasma creatinine m easurement (mass/volume)on 12-01-2021 Creatinine [Mass/Vol] 0.75 mg/dL 0.70-1.30 [facility] Work Phone: Comment on above: The validity of the calculated GFR & GFRAA in patients over 70 years has not been determined. Clinical correlation is essential. Serum or plasma urea nitroge n measurement (mass/volume)on 12-01-2021 Urea nitrogen [Mass/Vol] 18 mg/dL 7-18 [facility] Work Phone: Squamous epithelial cells de tection in urine sediment by light microscopyon 12-01-2021 Epithelial cells.squamous LM Ql (Urine sed) 0-5 SEEN /hpf 0-5 [facility] Work Phone: Thin prep Papanicolaou smear with manual screeningon 12-01-2021 Thin prep Papanicolaou smear with manual screening 7 5-15 [facility] Work Phone: Urine blood detectionon 11-05 RBC Ql (U) Negative Negative [facility] Work Phone: RBC Ql (U) 0 SEEN /hpf 0-5 [facility] Work Phone: Urine clarityon 12-01-2021 Clarity (U) Clear Clear [facility] Work Phone: Urine color determinationon 12-01-2021 Color (U) Yellow Yellow [facility] Work Phone: Urine glucose detectionon Glucose Ql (U) 50 mg/dl Normal [facility] Work Phone: Urine leukocyte esterase det ection by dipstickon 12-01-2021 Leukocyte esterase Test strip Ql (U) Negative Negative [facility] Work Phone: Urine pHon 12-01-2021 pH (U) 6.0 [pH] 5.0 - 8.0 [facility] Work Phone: Urine sediment bacteria coun t by microscopy (number/high power field)on 12-01-2021 Bacteria LM.HPF (Urine sed) [#/Area] 0 /[HPF] None Seen [facility] Work Phone: Urine sediment yeast count b y microscopy (number/high powered field)on 12-01-2021 Yeast LM.HPF (Urine sed) [#/Area] 2 /[HPF] None Seen [facility] Work Phone: Urine specific gravity measu rementon 12-01-2021 Specific gravity (U) [Rel density] 1.010 1.002-1.030 [facility] Work Phone: Urobilinogen Auto test strip Ql (U)on 12-01-2021 Urobilinogen Ql (U) Normal mg/dl Normal [facility] Work Phone: Whole blood prothrombin time on 12-01-2021 PT Coag (Bld) [Time] 19.8 s 11.7-14.9 [facility] Work Phone: Laboratory - Coagulationon 0 11-28-2021 INR Coag (Bld) [Relative time] 1.6 {INR} [facility] Work Phone: Comment on above: Critical Value > 4.0 Whole blood prothrombin time on 11-28-2021 PT Coag (Bld) [Time] 18.8 s 11.7-14.9 [facility] Work Phone: INR in Blood by Coagulation assayon 11-23-2021 INR Coag (Bld) [Relative time] 2.7 {INR} [facility] Work Phone: Laboratory - Coagulationon 0 11-23-2021 PT Coag (PPP) [Time] 28.0 s 11.7-14.9 [facility] Work Phone: Laboratory - Coagulationon 0 11-22-2021 INR Coag (Bld) [Relative time] 3.8 {INR} [facility] Work Phone: Comment on above: Critical Value > 4.0 Whole blood prothrombin time on 11-22-2021 PT Coag (Bld) [Time] 42.8 s 11.7-14.9 [facility] Work Phone: INR in Blood by Coagulation assayon 11-21-2021 INR Coag (Bld) [Relative time] 3.9 {INR} [facility] Work Phone: Laboratory - Coagulationon 0 11-21-2021 PT Coag (PPP) [Time] 37.7 s 11.7-14.9 [facility] Work Phone: Whole blood prothrombin time on 11-21-2021 PT Coag (Bld) [Time] 45.5 s 11.7-14.9 [facility] Work Phone: INR in Blood by Coagulation assayon 11-14-2021 INR Coag (Bld) [Relative time] 3.1 {INR} [facility] Work Phone: Laboratory - Coagulationon 0 11-14-2021 PT Coag (PPP) [Time] 31.4 s 11.7-14.9 [facility] Work Phone: Laboratory - Coagulationon 0 11-08-2021 INR Coag (Bld) [Relative time] 2.5 {INR} [facility] Work Phone: Comment on above: Critical Value > 4.0 Whole blood prothrombin time on 11-08-2021 PT Coag (Bld) [Time] 29.0 s 11.7-14.9 [facility] Work Phone: Basophil percentageon 2021 Chloride [Moles/Vol] 106 mmol/L 98-107 [facility] Work Phone: Glucose [Mass/Vol] 100 mg/dL 74-106 [facility] Work Phone: Comment on above: Fasting Glucose resu lt from 100 to 125 mg/dL suggests IMPAIRED HOMEOSTASIS per A.D.A. criteria. Potassium [Moles/Vol] 3.7 mmol/L 3.5-5.1 [facility] Work Phone: Sodium [Moles/Vol] 140 mmol/L 136-145 [facility] Work Phone: WBC (Bld) [#/Vol] 8.8 10*3/uL 4.4-11.0 [facility] Work Phone: Blood erythrocytes count (nu mber/volume)on 11-04-2021 RBC (Bld) [#/Vol] 4.05 10*6/uL 4.6-6.2 [facility] Work Phone: Blood hemoglobin measurement (mass/volume)on 11-04-2021 Hemoglobin (Bld) [Mass/Vol] 11.1 g/dL 13.0-16.5 [facility] Work Phone: Blood platelet mean volumeon 11-04-2021 Platelet mean volume (Bld) [Entitic vol] 10.8 fL 6.2-12.0 [facility] Work Phone: Determination of erythrocyte mean corpuscular volume (MCV)on 11-04-2021 MCV (RBC) [Entitic vol] 86.9 fL 80-94 [facility] Work Phone: Hematocrit Auto (Bld) [Volum e fraction]on 11-04-2021 Hematocrit (Bld) [Volume fraction] 35.2 % 40-54 [facility] Work Phone: INR in Blood by Coagulation assayon 07-01-2022 INR Coag (Bld) [Relative time] 1.8 {INR} [facility] Work Phone: Laboratory - Chemistry and C hemistry - challengeon 11-04-2021 CO2 [Moles/Vol] 26.0 mmol/L 21.0-32.0 [facility] Work Phone: Urea nitrogen/Creatinine [Mass ratio] 18.3 mg/mg 10-20 [facility] Work Phone: Laboratory - Coagulationon 0 11-04-2021 PT Coag (PPP) [Time] 20.4 s 11.7-14.9 [facility] Work Phone: Laboratory - Hematology and Cell countson 11-04-2021 Erythrocyte distribution width (RBC) [Entitic vol] 48.1 fL 35.1-43.9 [facility] Work Phone: Erythrocyte distribution width (RBC) [Ratio] 15.0 % 11.6-14.6 [facility] Work Phone: MCH (RBC) [Entitic mass] 27.4 pg 27.0-32.0 [facility] Work Phone: MCHC Auto (RBC) [Mass/Vol]on 11-04-2021 MCHC (RBC) [Mass/Vol] 31.5 g/dL 32-36 [facility] Work Phone: No Panel Informationon 11-04 D-Dimer Quantitative (PE/DVT) 0.56 FEU/ug/m 0.27-0.49 [facility] Work Phone: Comment on above: D-Dimer ELEVATED (>0 .49): Additional studies and clinicalassessments are indicated to conclude diagnosis of:Deep Vein Thrombosis (DVT) or Pulmonary Embolism (PE) Estimated GFR (MDRD) Amer 155 mL/min >60 [facility] Work Phone: Comment on above: GFR Calc Estimated GFR (MDRD) Non-Af Amer 128 mL/min >60 [facility] Work Phone: Comment on above: Non- GFR Calc Troponin I High Sensitivity 11 pg/mL 3.0-78.0 [facility] Work Phone: Comment on above: Please Note: New Fadumo t Units and Gender Specific Reference Ranges. For more information see Policy Stat Procedure [facility] High Sensitivity Troponin (TNIH) and attachments. Platelets bldon 11-04-2021 Platelets (Bld) [#/Vol] 364 10*3/uL 150-450 [facility] Work Phone: Serum or plasma C reactive p rotein measurement (mass/volume)on 11-04-2021 CRP [Mass/Vol] 31.90 mg/L 0.0-3.0 [facility] Work Phone: Comment on above: C-Reactive Protein ( CRP) provides useful information for thediagnosis, therapy and monitoring of inflammatory processesand associated diseases. For the evaluation of Relative Riskfor Cardiovascular Disease, a High Sensitivity CRP (HSCRP)should be ordered. Serum or plasma calcium oral urement (mass/volume)on 11-04-2021 Calcium [Mass/Vol] 9.1 mg/dL 8.5-10.1 [facility] Work Phone: Serum or plasma creatinine m easurement (mass/volume)on 11-04-2021 Creatinine [Mass/Vol] 0.66 mg/dL 0.70-1.30 [facility] Work Phone: Comment on above: The validity of the calculated GFR & GFRAA in patients over 70 years has not been determined. Clinical correlation is essential. Serum or plasma urea nitroge n measurement (mass/volume)on 11-04-2021 Urea nitrogen [Mass/Vol] 12 mg/dL 7-18 [facility] Work Phone: Thin prep Papanicolaou smear with manual screeningon 11-04-2021 Thin prep Papanicolaou smear with manual screening 8 5-15 [facility] Work Phone: Complete Urinalysison 2021 Appearance (U) Clear Normal Clear [facility] Comment on above: Result Comment: . Performed By: #### C UA2 ####[address] [place], [place] Bacteria Moderate Abnormal Negative [facility] Comment on above: Result Comment: . Performed By: #### C UA2 ####[address] [place], [place] Bilirubin,Urine Negative Normal Negative [facility] Comment on above: Result Comment: . Performed By: #### C UA2 ####[address] [place], [place] Cast, Hyaline Negative Normal Negative [facility] Comment on above: Result Comment: . Performed By: #### C UA2 ####[place] [address] [address] [place], [place] Color (U) Yellow Normal Lt. Yellow [facility] Comment on above: Result Comment: . Performed By: #### C UA2 ####[address] [place], [place] Glucose Ql (U) Normal Normal Normal (<70) [facility] Comment on above: Result Comment: . Performed By: #### C UA2 ####[place] [address] [address] [address] [place], [place] Ketone,Urine Negative Normal Negative [facility] Comment on above: Result Comment: . Performed By: #### C UA2 ####[address] [place], [place] Leukocytes,Urine Negative Normal Negative [facility] Comment on above: Result Comment: . Performed By: #### C UA2 ####[address] [address] [address] [place], [place] Mucous Threads Few Normal Negative [facility] Comment on above: Result Comment: . Performed By: #### C UA2 ####[address] [place], [place] Nitrites,Urine Negative Normal Negative [facility] Comment on above: Result Comment: . Performed By: #### C UA2 ####[address] [address] [address] [place], [place] Occult Blood,Urine 0.1 mg/dL Abnormal Negative [facility] Comment on above: Result Comment: . Performed By: #### C UA2 ####[address] . [place], [place] pH,Urine 5.5 Normal 5.0-8.0 [facility] Comment on above: Result Comment: . Performed By: #### C UA2 ####[place] [address] [address] [address] [place], [place] Protein (U) [Mass/Vol] 10 mg/dL Abnormal Negative [facility] Comment on above: Result Comment: . Performed By: #### C UA2 ####[address] [place], [place] RBC, Urine 26 - 50 Abnormal 0-2 [facility] Comment on above: Result Comment: . Performed By: #### C UA2 ####[address] Specific [place],Urine 1.023 Normal 1.005 - 1.030 [facility] Comment on above: Result Comment: . Performed By: #### C UA2 ####[address] Squamous Epithelial Negative Normal 3-5 [facility] Comment on above: Result Comment: . Performed By: #### C UA2 ####[address] Urobilinogen,Urine Normal Normal Normal (0-1) [facility] Comment on above: Result Comment: . Performed By: #### C UA2 ####[address] WBC, Urine 0 - 2 Normal 0-5 [facility] Comment on above: Result Comment: . Performed By: #### C UA2 ####[address] Urinalysison 11-01-2021 Appearance (U) Clear Clear NA [facility] Comment on above: . Bacteria, UA Moderate [...] Protein (U) [Mass/Vol] 10 mg/dL Abnormal Negative [facility] Comment on above: . RBC, UA 26-50 Abnormal 0 - 2 /[HPF] [facility] Comment on above: . Specific [place], Urine 1.023 [facility] Comment on above: . Squam Epithel, UA Negative 3 - 5 /[HPF] [facility] Comment on above: . Urobilinogen, Urine Normal Normal ( 0-1) mg/dL [facility] Comment on above: . WBC, UA 0-2 0 - 5 /[HPF] [facility] Comment on above: . Test Performed by [facility], [address] [place] [address] LAB [facility] Basic Metabolic Panelon - Anion gap [Moles/Vol] 6 mmol/L Normal 3-13 [facility] Comment on above: Performed By: #### P T/AP, TROPN, BMP3, HEMDF #### [address] [id number] Calcium [Mass/Vol] 9.1 mg/dL Normal 8.4-10.4 [facility] Comment on above: Performed By: #### P T/AP, TROPN, BMP3, HEMDF #### [address] [address] CO2 [Moles/Vol] 28 mmol/L Normal 22-30 [facility] Comment on above: Performed By: #### P T/AP, TROPN, BMP3, HEMDF #### [address] Glucose [Mass/Vol] 120 mg/dL High 70-100 [facility] Comment on above: Performed By: #### P T/AP, TROPN, BMP3, HEMDF #### [address] Urea nitrogen [Mass/Vol] 17 mg/dL Normal 7-17 [facility] Comment on above: Performed By: #### P T/AP, TROPN, BMP3, HEMDF #### [address] Creatinine [Mass/Vol] 0.65 mg/dL Normal 0.52-1.25 [facility] Comment on above: Performed By: #### P T/AP, TROPN, BMP3, HEMDF #### [address] eGFR OTHER > 90.0 Normal >60 [facility] Comment on above: Result Comment: KDIG [...] #### P T/AP, TROPN, BMP3, HEMDF #### [address] GFR/1.73 sq M.predicted among blacks MDRD (S/P/Bld) [Vol rate/Area] mL/min/{1.73_m2} Normal >60 [facility] Comment on above: Performed By: #### P T/AP, TROPN, BMP3, HEMDF #### [facility] [address] [place], [place] Potassium [Moles/Vol] 3.8 mmol/L Normal 3.5-5.1 [facility] Comment on above: Performed By: #### P T/AP, TROPN, BMP3, HEMDF #### [facility] [address] [place], [place] Chloride [Moles/Vol] 101 mmol/L Normal 98-107 [facility] Comment on above: Performed By: #### P T/AP, TROPN, BMP3, HEMDF #### [address] [address] [place], [place] Sodium [Moles/Vol] 134 mmol/L Low 135-145 [facility] Comment on above: Performed By: #### P T/AP, TROPN, BMP3, HEMDF #### [address] [address] [place], [place] Anion gap [Moles/Vol] 6 mmol/L 3 - 13 mmol/L [facility] Calcium [Mass/Vol] 9.1 mg/dL 8.4 - 10. 4 mg/dL [facility] Chloride [Moles/Vol] 101 mmol/L 98 - 10 7 mmol/L [facility] CO2 [Moles/Vol] 28 mmol/L 22 - 30 mmol/L [facility] Creatinine [Mass/Vol] 0.65 mg/dL 0.52 - 1.25 mg/dL [facility] EGFR IF NonAfrican Australian >90.0 >60 mL/min [facility] Comment on above: KDIGO guidelines pro vide [...] - 17 mg/dL [facility] Test Performed by [id number] [place] [address] LAB [facility] CBC with Auto Differentialon 10-31-2021 [...] 10*3/uL [facility] Test Performed by [facility], [address] [place] [address] LAB [facility] Abdomen APon 10-31-2021 CR Abdomen AP Patient Name: ANDREW SIFUENTES Diagnostic Radiology ACCESSION EXAM DATE/TIME PROCEDURE ORDERING PROVIDER [id number] 10/31/2021 20:36 EDT CR Abdomen AP [id number] MYRON GALINDO CPT code 09076 Reason For Exam (CR Abdomen AP) vp clinical shunt, 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 CHEST PORTABLE [...] Transcribed Date and Time: 10/31/2021 8:49 Normal [facility] CR Chest Portableon 11-01-19 22 CR Chest Portable Patient Name: ANDREW SIFUENTES Diagnostic Radiology ACCESSION EXAM DATE/TIME PROCEDURE ORDERING PROVIDER [id number] 10/31/2021 20:36 EDT CR Chest Portable [id number] MYRON GALINDO CPT code 40681 Reason For Exam (CR Chest Portable) AMS [...] Transcribed Date and Time: 10/31/2021 8:[address] [facility] [address] HEAD WO CONTRASTon 2021 Patient Name: ANDREW LARSEN [facility]#: [id number] Computed Tomography ACCESSION EXAM DATE/TIME PROCEDURE ORDERING PROVIDER [id number] 10/31/2021 20:[address] Head or Brain w/o [id number] -MYRON DURAN Contrast CPT code 74839 Reason For Exam (CT Head or Brain w/o Contrast) AMS, previous CIGAR MAKING SUPERVISOR shunt Report Examination: CT Head Clinical Information: AMS, previous CIGAR MAKING SUPERVISOR shunt Comparison: 10/26/2021, MRI 10/27/2021 Findings: Serial [...] Transcribed Date and Time: 10/31/2021 8:54 [facility] Alan Kumar MD - 10/31/2021 [id number] Tomography ACCESSION EXAM DATE/TIME PROCEDURE ORDERING PROVIDER [id number] 10/31/2021 20:[address] Head or Brain w/o [id number] -DURAN MYRON Contrast CPT code 11937 Reason For Exam (CT Head or Brain w/o Contrast) AMS, previous CIGAR MAKING SUPERVISOR shunt Report Examination: CT Head Clinical Information: AMS, previous CIGAR MAKING SUPERVISOR shunt Comparison: 10/26/2021, MRI 10/27/2021 Findings: Serial [...] CONTRASTOrdered B y: Alan Wong on 10-31-2021 [facility] Work Phone: CT Head or Brain w/o Contras ton 10-31-2021 CT Head or Brain w/o Contrast Patient [facility]: [id number] Computed Tomography ACCESSION EXAM DATE/TIME PROCEDURE ORDERING PROVIDER [id number] 10/31/2021 20:[address] Head or Brain w/o [id number] -DURAN, MYRON Contrast CPT code 55931 Reason For Exam (CT Head or Brain w/o Contrast) AMS, previous CIGAR MAKING SUPERVISOR shunt Report Examination: CT Head Clinical Information: AMS, previous CIGAR MAKING SUPERVISOR shunt Comparison: 10/26/2021, MRI 10/27/2021 Findings: Serial [...] Transcribed Date and Time: 10/31/2021 8:54 Normal [facility] ED Provider Noteon ED Provider Note Emergency Department Encounter [facility] EM[facility]GENCY [facility]PT Patient: Andrew Sifuentes : [...] is cooperative and calm. According to the senior care, he has been more lethargic than normal, [...] are mis-transcribed.) Dante Kim MD Acute Care [facility] Dante Kim MD 10/31/21 2211 Normal [facility] ED Provider Note [facility] EMERGENCY DEPT EMERGENCY DEPARTMENT ENCOUNTER Pt Name: Andrew Sifuentes Birthdate 1950 Date of evaluation: 10/31/2021 Provider: Myron Duran MD CHIEF COMPLAINT Chief Complaint Patient presents with ? Altered Mental Status Pt presents to ED via [facility] for complaint listed. Pt is from [place] [facility]. Pt's LKW was 1000 hours [...] have a history of hydrocephalus with a CIGAR MAKING SUPERVISOR shunt. 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 REVIEW OF [...] (HCC) ? Kidney stone ? Neuropathy ? CIGAR MAKING SUPERVISOR (ventriculoperitoneal) shunt status SURGICAL HISTORY Past Surgical [...] of Transportati (more content not included)... Normal [facility] EKG 12 Lead - Chest Painon 0 10-31-2021 [facility] Test Date: 2021-10-31 Pat Name: ANDREW SIFUENTES Department: [facility] Room: 40 Gender: M Entry Level Account Representative: ANDRES : 1950 Requested By: MYRON DURAN Order Number: [id number] Latosha MD: Dante Kim Measurements Intervals Darragh Rate: 91 P: 41 MI: 154 QRS: 50 QRSD: 147 T: 8 QT: 385 QTc: 474 Interpretive Statements Sinus rhythm Right bundle branch block Electronically Signed On 6-27-2022 20:36:25 EDT by Dante Kim [facility] CARDIOLOGY Dante Kim M D - 10/31/2021 [facility] Test Date: 2021-10-31 Pat Name: ANDREW SIFUENTES Department: [facility] Room: 40 Gender: M Entry Level Account Representative: ANDRES : 1950 Requested By: MYRON DURAN Order Number: [id number] Reading MD: Dante Kim Measurements Intervals Darragh Rate: 91 P: 41 MI: 154 QRS: 50 QRSD: 147 T: 8 QT: 385 QTc: 474 Interpretive Statements Sinus rhythm Right bundle branch block Electronically Signed On 10-31-2021 20:36:25 EDT by Dante Kim [facility] Work Phone: EKG 12 Lead - Chest PainOrde red By: Dante Kim on 10-31-2021 [facility] Work Phone: Hemogram w/ Autodiffon 10-31 Abs Baso Cnt 0.1 10*3/uL Normal 0.0-0.2 [facility] Comment on above: Performed By: #### P T/AP, TROPN, BMP3, HEMDF #### [address] [id number] Abs Neutrophile Cnt 6.0 10*3/uL Normal 1.8-7.0 [facility] Comment on above: Performed By: #### P T/AP, TROPN, BMP3, HEMDF #### [facility] [address] Basophils/100 WBC (Bld) 1.1 % Normal 0.0-2.0 [facility] Comment on above: Performed By: #### P T/AP, TROPN, BMP3, HEMDF #### [address] Eosinophils (Bld) [#/Vol] 0.2 10*3/uL Normal 0.0-0.5 [facility] Comment on above: Performed By: #### P T/AP, TROPN, BMP3, HEMDF #### [address] [address] [place], [place] Eosinophils/100 WBC (Bld) 2.3 % Normal 1.0-6.0 [facility] Comment on above: Performed By: #### P T/AP, TROPN, BMP3, HEMDF #### [address] [address] [place], [place] Erythrocyte distribution width (RBC) [Ratio] 17.2 % High 11.5-14.5 [facility] Comment on above: Performed By: #### P T/AP, TROPN, BMP3, HEMDF #### [address] [place], [place] Granulocytes/100 WBC (Bld) 61.8 % Normal 40.0-80.0 [facility] Comment on above: Performed By: #### P T/AP, TROPN, BMP3, HEMDF #### [address] [place], [place] Hematocrit (Bld) [Volume fraction] 35.0 % Low 40.0-52.0 [facility] Comment on above: Performed By: #### P T/AP, TROPN, BMP3, HEMDF #### [address] [place], [place] Hemoglobin (Bld) [Mass/Vol] 11.3 g/dL Low 13.0-18.0 [facility] Comment on above: Performed By: #### P T/AP, TROPN, BMP3, HEMDF #### [address] [place], [place] Lymphocytes (Bld) [#/Vol] 2.8 10*3/uL Normal 1.0-4.3 [facility] Comment on above: Performed By: #### P T/AP, TROPN, BMP3, HEMDF #### [address] [place], [place] Lymphocytes/100 WBC (Bld) 29.2 % Normal 20.0-40.0 [facility] Comment on above: Performed By: #### P T/AP, TROPN, BMP3, HEMDF #### [address] [place], [place] MCH (RBC) [Entitic mass] 27.5 pg Normal 26.0-34.0 [facility] Comment on above: Performed By: #### P T/AP, TROPN, BMP3, HEMDF #### [address] [place] MCHC 32.3 % Normal 32.0-36.0 [facility] Comment on above: Performed By: #### P T/AP, TROPN, BMP3, HEMDF #### [address] [address] [place], [place] MCV (RBC) [Entitic vol] 85.0 fL Normal 80.0-98.0 [facility] Comment on above: Performed By: #### P T/AP, TROPN, BMP3, HEMDF #### [address] Monocytes (Bld) [#/Vol] 0.5 10*3/uL Normal 0.0-0.8 [facility] Comment on above: Performed By: #### P T/AP, TROPN, BMP3, HEMDF #### [address] [address] [place], [place] Monocytes/100 WBC (Bld) 5.6 % Normal 2.0-10.0 [facility] Comment on above: Performed By: #### P T/AP, TROPN, BMP3, HEMDF #### [place] [address] [address] [place], [place] Platelet mean volume (Bld) [Entitic vol] 8.6 fL Normal 7.4-12.4 [facility] Comment on above: Result Comment: MPV is a calculated measurement using platelet volume ratio. Performed By: #### P T/AP, TROPN, BMP3, HEMDF #### [place] [address] [place], [place] Platelets (Bld) [#/Vol] 348 10*3/uL Normal 140-440 [facility] Comment on above: Performed By: #### P T/AP, TROPN, BMP3, HEMDF #### [facility] [address] [place], [place] RBC (Bld) [#/Vol] 4.12 10*6/uL Low 4.40-5.90 [facility] Comment on above: Performed By: #### P T/AP, TROPN, BMP3, HEMDF #### [facility] [address] [place], [place] WBC (Bld) [#/Vol] 9.7 10*3/uL Normal 3.6-10.7 [facility] Comment on above: Performed By: #### P T/AP, TROPN, BMP3, HEMDF #### [facility] [address] [place], [place] Laboratory - Coagulationon 0 10-31-2021 INR Coag (Bld) [Relative time] 2.0 {INR} [facility] Work Phone: Comment on above: Critical Value > 4.0 No Panel Informationon 10-31 Radiology Study observation (narrative) [facility] Work Phone: PROTIME/INR & PTTon 11-01-19 aPTT Coag (Bld) [Time] 39.2 s High 20.0 - 30.5 s [facility] Comment on above: NOTE: The therapeuti c time for Heparin anticoagulation, based on Xa activity inhibition, is an APTT of 46-80 seconds. INR Coag (Bld) [Relative time] 1.9 {INR} High [facility] Comment on above: Recommended Anticoag ulant Therapy: [...] review of laboratory results Abnormal [facility] PT Coag (PPP) [Time] 19.8 s High 9.0 - 12.0 s [facility] Comment on above: . Test Performed by [facility], [address] [place] [address] [facility] Protime AND APTTon aPTT Coag (Bld) [Time] 39.2 s High 20.0-30.5 [facility] Comment on above: Result Comment: NOTE : The therapeutic time for Heparin anticoagulation, based on Xa activity inhibition, is an APTT of 46-80 seconds. Performed By: #### P T/AP, TROPN, BMP3, HEMDF #### [address] [phone] INR 1.9 High 0.9-1.1 [facility] Comment on above: Result [...] #### P T/AP, TROPN, BMP3, HEMDF #### [address] [address] PT Coag (PPP) [Time] 19.8 s High 9.0-12.0 [facility] Comment on above: Result Comment: . Performed By: #### P T/AP, TROPN, BMP3, HEMDF #### [address] [address] Troponin Ion 10-31-2021 Troponin I.cardiac [Mass/Vol] ng/mL Normal 0.000-0.034 [facility] Comment on above: Result Comment: . Performed By: #### P T/AP, TROPN, BMP3, HEMDF #### [address] [address] Troponin x1on 10-31-2021 Troponin I.cardiac [Mass/Vol] ng/mL 0.000 - 0.034 ng/mL [facility] Comment on above: . Test Performed by [facility], [address] [place] [address] [facility] LAB [facility] Whole blood prothrombin time on 10-31-2021 PT Coag (Bld) [Time] 23.7 s 11.7-14.9 [facility] Work Phone: XR ABDOMEN (KUB) (SINGLE AP VIEW)on 10-31-2021 Patient Name: ANDREW SIFUENTES Diagnostic Radiology ACCESSION EXAM DATE/TIME PROCEDURE ORDERING PROVIDER [id number] 10/31/2021 20:36 EDT CR Abdomen AP [id number] -MYRON DURAN CPT code 43651 Reason For Exam (CR Abdomen AP) vp clinical shunt, 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 CHEST PORTABLE [...] WENDELL Transcribed Date and Time: 10/31/2021 8:49 [facility] - 10/31/2021 Patient Name: ANDREW SIFUENTES Diagnostic Radiology ACCESSION EXAM DATE/TIME PROCEDURE ORDERING PROVIDER [id number] 10/31/2021 20:36 EDT CR Abdomen AP [id number] PERDOMO CPT code 52283 Reason For Exam (CR Abdomen AP) vp clinical shunt, 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 CHEST PORTABLE [...] WENDELL Transcribed Date and Time: 10/31/2021 8:49 [facility] Work Phone: [facility] Work Phone: XR CHEST PORTABLEon 11-01-19 [facility]: [id number] Radiology ACCESSION EXAM DATE/TIME PROCEDURE ORDERING PROVIDER [id number] 10/31/2021 20:36 EDT CR Chest Portable [id number] MARTÍNEZ CPT code 63095 Reason For Exam (CR Chest Portable) AMS [...] WENDELL Transcribed Date and Time: 10/31/2021 8:49 [facility] Huang Reynoso MD - 10/31/2021 Patient Name: ANDREW SIFUENTES Diagnostic Radiology ACCESSION EXAM DATE/TIME PROCEDURE ORDERING PROVIDER [id number] 10/31/2021 20:36 EDT CR Chest Portable [id number] -MYRON DURAN CPT code 79756 Reason For Exam (CR Chest Portable) AMS [...] bowel gas pattern. Report Dictated on Workstation: [id number] --- Final --- Dictated: 10/31/2021 8:49 pm Dictating Physician: MD REYNOSO WENDELL Signed Date and Time: 10/31/2021 8:52 pm Signed by: MD REYNOSO WENDELL Transcribed Date and Time: 10/31/2021 8:49 [facility] Work Phone: [phone] XR CHEST PORTABLEOrdered By: Huang Reynoso on 10-31-2021 [facility] Work Phone: Lupus Anticoagulanton 2021 DRVVT Confirmation Test Not Applicable Negative ratio [facility] Work Phone: dRVVT Screen 38 [facility] Work Phone: [phone] Hex Phosph Neut Test Not Applicable Negative NA [facility] Work Phone: [phone] Interpretation and review of laboratory results Abnormal [facility] Work Phone: LUPUS INTERPRETATION See Note [facility] Work Phone: [phone] Comment on above: Lupus anticoagulant not [...] has not already been performed. Performed by [facility], [address] [place] [id number] [email or web address], Quiana Castro MD - Lab. Director Platelet Neutralization Not Applicable Negative NA [facility] Work Phone: PTT-D Heparin Neutralized 48 [facility] Work Phone: [phone] PTT-LA 55 High [facility] Work Phone: [phone] Reptilase Tm 17.6 <=21.9 sec [facility] Work Phone: [phone] Thrombin Time 25.3 High [facility] Work Phone: [facility] Work Phone: Lupus Anticoagulant Reflexiv e Panelon 10-29-2021 aPTT Coag (Bld) [Time] 55 s High 32-48 [facility] Comment on above: Performed By: #### C OVAG #### [facility] [address] [place] [address] aPTT Coag (Bld) [Time] 48 s Normal 32-48 [facility] Comment on above: Performed By: #### C OVAG #### [facility] [address] [place] [address] DRVVT 1:1 Mix Not Applicable Normal 33-44 [facility] Work Phone: Comment on above: Performed By: #### C OVAG #### [facility] [address] [place] [address] dRVVT Confirmation Not Applicable Normal Negative [facility] Comment on above: Performed By: #### C OVAG #### [facility] [address] [place] [address] dRVVT Screen 38 sec Normal 33-44 [facility] Comment on above: Performed By: #### C OVAG #### [facility] [address] [place] [address] Hexagonal Phospholipid Neutral Reflex Not Applicable Normal Negative [facility] Comment on above: Performed By: #### C OVAG #### [facility] [address] [place] [address] Lupus Anticoagulant Interpretation See Note Normal [facility] Comment on above: Result Comment: Lupu [...] has not already been performed. Performed by [facility], [address] [place] [id number] [email or web address], Quiana Castro MD - Lab. Director Performed By: #### C OVAG #### [facility] [address] [place] [address] Platelet Neutralization (PTT-D, Confirm) Not Applicable Normal Negative [facility] Comment on above: Performed By: #### C OVAG #### [facility] [address] [place] [address] PT Coag (PPP) [Time] 14.7 s Normal 12.0-15.5 [facility] Work Phone: Comment on above: Performed By: #### C OVAG #### [facility] [address] [place] [address] PTT-D 1:1 Mix Not Applicable Normal 32-48 [facility] Work Phone: Comment on above: Performed By: #### C OVAG #### [facility] [address] [place] [address] Reptilase Time 17.6 sec Normal <=21.9 [facility] Comment on above: Performed By: #### C OVAG #### [facility] [address] [place] [address] Thrombin Time 25.3 sec High 14.7-19.5 [facility] Comment on above: Performed By: #### C OVAG #### [facility] [address] [place] [address] POCT COVID-19, Antigenon SARS-CoV-2 Nucleocapsid Antigen Negative Negative [facility] Comment on above: A negative result does not rule out the possibility of SARS-CoV-2 infection. NAAT-based methods should be considered for symptomatic patients presenting greater than seven days after onset of symptoms. Method: Lateral flow immunoassay. Fact sheets for healthcare providers and patients can be found at the following sites: https://www.fda.gov/media/775342/download https://www.fda.gov/media/300345/download Test Performed by [facility], [address] [place], [place] [address] [place] [address] LAB [facility] Prothrombin Timeon INR 2.7 High 0.9-1.1 [facility] Comment on above: Result [...] Infarction Performed By: #### P T #### [facility] [address] [place] [address] PT Coag (PPP) [Time] 27.4 s High 9.0-12.0 [facility] Comment on above: Result Comment: . Performed By: #### P T #### [facility] [address] [place] [address] Protime-INRon 10-29-2021 INR Coag (Bld) [Relative time] 2.7 {INR} High [facility] Work Phone: Comment on above: Recommended Anticoag [...] review of laboratory results Abnormal [facility] Work Phone: PT Coag (PPP) [Time] 27.4 s High 9.0 - 12.0 s [employer] Work Phone: Comment on above: . Test Performed by [facility], [address], [place], [place] [address] [facility] LAB [facility] Work Phone: SARS-CoV-2 Antigenon 022 SARS-CoV-2 Antigen Negative Normal Negative [facility] Comment on above: Result Comment: A negative result does not rule out the possibility of SARS-CoV-2 infection. NAAT-based methods should be considered for symptomatic patients presenting greater than seven days after onset of symptoms. Method: Lateral flow immunoassay. Fact sheets for healthcare providers and patients can be found at the following sites: https://www.[employer].gov/media/552884/download https://www.[employer].gov/[employer]/171030/download Performed By: #### C OVAG #### [facility] [address] [place] [address] [facility]Con 10-28-2021 Hematocrit (Bld) [Volume fraction] 33.4 % Low 40.0 - 52.0 % [employer] Phone: Hemoglobin (Bld) [Mass/Vol] 11.0 g/dL Low 13.0 - 18.0 g/dL [facility] Phone: Interpretation and review of laboratory results Abnormal [facility] Phone: MCH (RBC) [Entitic mass] 27.8 pg 26.0 - 34.0 pg [facility] Phone: MCHC (RBC) [Mass/Vol] 32.8 % 32.0 - 36.0 % [employer] Phone: MCV (RBC) [Entitic vol] 84.8 fL 80.0 - 98.0 fL [employer] Phone: Platelet distribution width (Bld) [Ratio] 17.1 % High 11.5 - 14.5 % [facility] Phone: Platelet mean volume (Bld) [Entitic vol] 8.3 fL 7.4 - 12.4 fL [facility] Phone: Comment on above: MPV is a calculated measurement using platelet volume ratio. Platelets (Bld) [#/Vol] 344 10*3/uL 140 - 440 10*3/uL [employer] Phone: RBC (Bld) [#/Vol] 3.94 10*6/uL Low 4.40 - 5.9 0 10*6/uL [employer] [facility] Phone: [phone] WBC (Bld) [#/Vol] 10.0 10*3/uL 3.6 - 10.7 10*3/uL [facility] Work Phone: Test Performed by [facility], [address] [place], [place] [address] [facility] LAB [facility] Work Phone: Comp Metabolic Panelon 10-28 ALP [Catalytic activity/Vol] 103 U/L Normal 38-126 [facility] Comment on above: Performed By: #### C A19O, LUPUS #### The performing lab is in the report. #### NSEO #### [facility] #### HEMDF, LDH3, BMP3, MG3, PT, CEA2 #### [facility] [address] [place] [address] #### B2GPM, B2GPA, B2GPG #### [address] ALT [Catalytic activity/Vol] 26 U/L Normal 0-49 [facility] Comment on above: Result Comment: The ALT test is performed by an updated assay method. Please note that the reference intervals have been changed and are now sex specific. Performed By: #### C A19O, LUPUS #### The performing lab is in the report. #### NSEO #### [facility] #### HEMDF, LDH3, BMP3, MG3, PT, CEA2 #### [facility] [address] [place] [address] #### B2GPM, B2GPA, B2GPG #### [address] [address] AST [Catalytic activity/Vol] 24 U/L Normal 15-46 [facility] Comment on above: Performed By: #### C A19O, LUPUS #### The performing lab is in the report. #### NSEO #### [facility] #### HEMDF, LDH3, BMP3, MG3, PT, CEA2 #### [facility] [address] [place] [address] #### B2GPM, B2GPA, B2GPG #### [address] Calcium [Mass/Vol] 9.1 mg/dL Normal 8.4-10.4 [facility] Comment on above: Performed By: #### C A19O, LUPUS #### The performing lab is in the report. #### NSEO #### [facility] #### HEMDF, LDH3, BMP3, MG3, PT, CEA2 #### [facility] [address] [place], [place] #### B2GPM, B2GPA, B2GPG #### [address] Glucose [Mass/Vol] 117 mg/dL High 70-100 [facility] Comment on above: Performed By: #### C A19O, LUPUS #### The performing lab is in the report. #### NSEO #### [facility] #### HEMDF, LDH3, BMP3, MG3, PT, CEA2 #### [facility] [address] [place] [address] #### B2GPM, B2GPA, B2GPG #### [address] Urea nitrogen [Mass/Vol] 16 mg/dL Normal 7-17 [facility] Comment on above: Performed By: #### C A19O, LUPUS #### The performing lab is in the report. #### NSEO #### [facility] #### HEMDF, LDH3, BMP3, MG3, PT, CEA2 #### [facility] [address] [place] [address] #### B2GPM, B2GPA, B2GPG #### [address] Anion gap [Moles/Vol] 5 mmol/L Normal 3-13 [facility] Comment on above: Performed By: #### C A19O, LUPUS #### The performing lab is in the report. #### NSEO #### [facility] #### HEMDF, LDH3, BMP3, MG3, PT, CEA2 #### [place] [address] [place] [address] #### B2GPM, B2GPA, B2GPG #### [address] Bilirubin [Mass/Vol] 0.4 mg/dL Normal 0.2-1.3 [facility] Comment on above: Performed By: #### C A19O, LUPUS #### The performing lab is in the report. #### NSEO #### [facility] #### HEMDF, LDH3, BMP3, MG3, PT, CEA2 #### [address] [place] #### B2GPM, B2GPA, B2GPG #### [address] CO2 [Moles/Vol] 29 mmol/L Normal 22-30 [facility] Comment on above: Performed By: #### C A19O, LUPUS #### The performing lab is in the report. #### NSEO #### [facility] #### HEMDF, LDH3, BMP3, MG3, PT, CEA2 #### [address] [place] #### B2GPM, B2GPA, B2GPG #### [address] Creatinine [Mass/Vol] 0.71 mg/dL Normal 0.52-1.25 [facility] Comment on above: Performed By: #### C A19O, LUPUS #### The performing lab is in the report. #### NSEO #### [facility] #### HEMDF, LDH3, BMP3, MG3, PT, CEA2 #### [address] [place] #### B2GPM, B2GPA, B2GPG #### [address] eGFR OTHER > 90.0 Normal >60 [facility] Comment on above: Result Comment: KDIG [...] BMP3, MG3, PT, CEA2 #### [facility] [address] [place] [address] #### B2GPM, B2GPA, B2GPG #### [address] GFR/1.73 sq M.predicted among blacks MDRD (S/P/Bld) [Vol rate/Area] mL/min/{1.73_m2} Normal >60 [facility] Comment on above: Performed By: #### C A19O, LUPUS #### The performing lab is in the report. #### NSEO #### [facility] #### HEMDF, LDH3, BMP3, MG3, PT, CEA2 #### [facility] [address] [place] [address] #### B2GPM, B2GPA, B2GPG #### [address] Protein [Mass/Vol] 7.1 g/dL Normal 6.3-8.2 [facility] Comment on above: Performed By: #### C A19O, LUPUS #### The performing lab is in the report. #### NSEO #### [facility] #### HEMDF, LDH3, BMP3, MG3, PT, CEA2 #### [place] [address] [place] [address] #### B2GPM, B2GPA, B2GPG #### [address] Potassium [Moles/Vol] 3.5 mmol/L Normal 3.5-5.1 [facility] Comment on above: Performed By: #### C A19O, LUPUS #### The performing lab is in the report. #### NSEO #### [facility] #### HEMDF, LDH3, BMP3, MG3, PT, CEA2 #### [place] [address] [place] [address] #### B2GPM, B2GPA, B2GPG #### [address] Sodium [Moles/Vol] 138 mmol/L Normal 135-145 [facility] Comment on above: Performed By: #### C A19O, LUPUS #### The performing lab is in the report. #### NSEO #### [facility] #### HEMDF, LDH3, BMP3, MG3, PT, CEA2 #### [address] [place] [address] #### B2GPM, B2GPA, B2GPG #### [address] Albumin [Mass/Vol] 3.7 g/dL Normal 3.5-5.0 [facility] Comment on above: Performed By: #### C A19O, LUPUS #### The performing lab is in the report. #### NSEO #### [facility] #### HEMDF, LDH3, BMP3, MG3, PT, CEA2 #### [facility] [address] [place] [address] #### B2GPM, B2GPA, B2GPG #### [facility] [address] [place] [address] Chloride [Moles/Vol] 104 mmol/L Normal 98-107 [facility] Comment on above: Performed By: #### C A19O, LUPUS #### The performing lab is in the report. #### NSEO #### [facility] #### HEMDF, LDH3, BMP3, MG3, PT, CEA2 #### [facility] [address] [place] [address] #### B2GPM, B2GPA, B2GPG #### [address] [address] Comprehensive Metabolic Pane kiel 10-28-2021 Albumin [Mass/Vol] 3.7 g/dL 3.5 - 5.0 g/dL [facility] Work Phone: [phone] ALP (Bld) [Catalytic activity/Vol] 103 U/L 38 - 126 U/L [facility] Work Phone: [phone] ALT [Catalytic activity/Vol] 26 U/L 0 - 49 U/L [facility] Work Phone: [phone] Comment on above: The ALT test is perf ormed by an updated assay method. Please note that the reference intervals have been changed and are now sex specific. Anion gap [Moles/Vol] 5 mmol/L 3 - 13 mmol/L [facility] Work Phone: [phone] AST [Catalytic activity/Vol] 24 U/L 15 - 46 U/L [facility] Work Phone: [phone] Bilirubin [Mass/Vol] 0.4 mg/dL 0.2 - 1 .3 mg/dL [facility] Work Phone: [phone] Calcium [Mass/Vol] 9.1 mg/dL 8.4 - 10. 4 mg/dL [facility] Work Phone: [phone] Chloride [Moles/Vol] 104 mmol/L 98 - 10 7 mmol/L [facility] Work Phone: [phone] CO2 [Moles/Vol] 29 mmol/L 22 - 30 mmol/L [facility] Work Phone: [phone] Creatinine [Mass/Vol] 0.71 mg/dL 0.52 - 1.25 mg/dL [facility] Work Phone: [phone] EGFR IF NonAfrican Australian >90.0 >60 mL/min [facility] Work Phone: [phone] [...] fraction] 7.1 g/dL 6.3 - 8.2 g/dL [facility] Work Phone: [phone] GFR/1.73 sq M.predicted among blacks MDRD (S/P/Bld) [Vol rate/Area] mL/min/{1.73_m2} >60 mL/min [facility] Work Phone: [phone] Glucose [Mass/Vol] 117 mg/dL High 70 - 100 mg/dL [facility] Work Phone: [phone] Interpretation and review of laboratory results Abnormal [facility] Work Phone: [phone] Potassium [Moles/Vol] 3.5 mmol/L 3.5 - 5.1 mmol/L [facility] Work Phone: [phone] Sodium [Moles/Vol] 138 mmol/L 135 - 145 mmol/L [facility] Work Phone: [phone] Urea nitrogen (BldV) [Mass/Vol] 16 mg/dL 7 - 17 mg/dL [facility] Work Phone: Test Performed by [facility], [address] [place], [place] [address] [facility] LAB [facility] Work Phone: Hemogramon 10-28-2021 Erythrocyte distribution width (RBC) [Ratio] 17.1 % High 11.5-14.5 [facility] Comment on above: Performed By: #### C A19O, LUPUS #### The performing lab is in the report. #### NSEO #### [facility] #### HEMDF, LDH3, BMP3, MG3, PT, CEA2 #### [facility] [address] [place] [address] #### B2GPM, B2GPA, B2GPG #### [address] Hematocrit (Bld) [Volume fraction] 33.4 % Low 40.0-52.0 [facility] Comment on above: Performed By: #### C A19O, LUPUS #### The performing lab is in the report. #### NSEO #### [facility] #### HEMDF, LDH3, BMP3, MG3, PT, CEA2 #### [place] [address] [place] [address] #### B2GPM, B2GPA, B2GPG #### [address] Hemoglobin (Bld) [Mass/Vol] 11.0 g/dL Low 13.0-18.0 [facility] Comment on above: Performed By: #### C A19O, LUPUS #### The performing lab is in the report. #### NSEO #### [facility] #### HEMDF, LDH3, BMP3, MG3, PT, CEA2 #### [place] [address] [place] [address] #### B2GPM, B2GPA, B2GPG #### [address] MCH (RBC) [Entitic mass] 27.8 pg Normal 26.0-34.0 [facility] Comment on above: Performed By: #### C A19O, LUPUS #### The performing lab is in the report. #### NSEO #### [facility] #### HEMDF, LDH3, BMP3, MG3, PT, CEA2 #### [address] [place] [address] #### B2GPM, B2GPA, B2GPG #### [address] MCHC 32.8 % Normal 32.0-36.0 [facility] Comment on above: Performed By: #### C A19O, LUPUS #### The performing lab is in the report. #### NSEO #### [facility] #### HEMDF, LDH3, BMP3, MG3, PT, CEA2 #### [address] [place], [place] #### B2GPM, B2GPA, B2GPG #### [address] MCV (RBC) [Entitic vol] 84.8 fL Normal 80.0-98.0 [facility] Comment on above: Performed By: #### C A19O, LUPUS #### The performing lab is in the report. #### NSEO #### [facility] #### HEMDF, LDH3, BMP3, MG3, PT, CEA2 #### [address] [place], [place] #### B2GPM, B2GPA, B2GPG #### [address] Platelet mean volume (Bld) [Entitic vol] 8.3 fL Normal 7.4-12.4 [facility] Comment on above: Result Comment: MPV is a calculated measurement using platelet volume ratio. Performed By: #### C A19O, LUPUS #### The performing lab is in the report. #### NSEO #### [facility] #### HEMDF, LDH3, BMP3, MG3, PT, CEA2 #### [facility] [address] [place] [address] #### B2GPM, B2GPA, B2GPG #### [address] Platelets (Bld) [#/Vol] 344 10*3/uL Normal 140-440 [facility] Comment on above: Performed By: #### C A19O, LUPUS #### The performing lab is in the report. #### NSEO #### [facility] #### HEMDF, LDH3, BMP3, MG3, PT, CEA2 #### [address] [place] #### B2GPM, B2GPA, B2GPG #### [address] RBC (Bld) [#/Vol] 3.94 10*6/uL Low 4.40-5.90 [facility] Comment on above: Performed By: #### C A19O, LUPUS #### The performing lab is in the report. #### NSEO #### [facility] #### HEMDF, LDH3, BMP3, MG3, PT, CEA2 #### [address] [place] #### B2GPM, B2GPA, B2GPG #### [address] WBC (Bld) [#/Vol] 10.0 10*3/uL Normal 3.6-10.7 [facility] Comment on above: Performed By: #### C A19O, LUPUS #### The performing lab is in the report. #### NSEO #### [facility] #### HEMDF, LDH3, BMP3, MG3, PT, CEA2 #### [place] [address] [place] #### B2GPM, B2GPA, B2GPG #### [facility] [address] [place] [address] Neuron Specific Enolaseon Neuron Specific Enolase 20.8 Normal [facility] Comment on above: Result Comment: Neur on Specific Enolase, Serum 20.8 ng/mL H (Ref Interval: <=12.7) NSE and Hgb are elevated in the specimen. The elevated NSE may be a result of hemolysis as NSE is expressed in red blood cells. Interpret results with caution. INTERPRETIVE INFORMATION: Neuron Specific Enolase in Serum This assay is performed using the OpenROV NSE Kryptor Immunoassay. Results obtained with different assay methods or kits cannot be used interchangeably. Results cannot be interpreted as absolute evidence of the presence or absence of malignant disease. This test was developed and its performance characteristics determined by [facility]. It has not been cleared or approved by the [place] Food and Drug Administration. This test was performed in a CLIA certified laboratory and is intended for clinical purposes. Performed By: #### C OVAG #### [facility] [address] [place] [address] Neuron specific enolase (NSE )on 10-28-2021 Neuron Specific Enolase 20.8 [facility] Work Phone: Comment on above: Neuron Specific Enol ase, Serum 20.8 ng/mL H (Ref Interval: <=12.7) NSE and Hgb are elevated in the specimen. The elevated NSE may be a result of hemolysis as NSE is expressed in red blood cells. Interpret results with caution. INTERPRETIVE INFORMATION: Neuron Specific Enolase in Serum This assay is performed using the OpenROV NSE Kryptor Immunoassay. Results obtained with different assay methods or kits cannot be used interchangeably. Results cannot be interpreted as absolute evidence of the presence or absence of malignant disease. This test was developed and its performance characteristics determined by [facility]. It has not been cleared or approved by the US Food and Drug Administration. This test was performed in a CLIA certified laboratory and is intended for clinical purposes. 1 [facility] Work Phone: Prothrombin Timeon 2 INR 3.1 High 0.9-1.1 [facility] Comment on above: Result [...] HEMDF, LDH3, BMP3, MG3, PT, CEA2 #### [facility] [address] [place] [address] #### B2GPM, B2GPA, B2GPG #### [address] [address] PT Coag (PPP) [Time] 30.8 s High 9.0-12.0 [facility] Comment on above: Result Comment: . Performed By: #### C A19O, LUPUS #### The performing lab is in the report. #### NSEO #### [facility] #### HEMDF, LDH3, BMP3, MG3, PT, CEA2 #### [facility] [address] [place] [address] #### B2GPM, B2GPA, B2GPG #### [address] [address] Protime-INRon 10-28-2021 INR Coag (Bld) [Relative time] 3.1 {INR} High [facility] Work Phone: Comment on above: Recommended Anticoag [...] review of laboratory results Abnormal [facility] Work Phone: PT Coag (PPP) [Time] 30.8 s High 9.0 - 12.0 s [facility] Work Phone: Comment on above: . Test Performed by [facility], [address], [place], [place] [address] [facility] Work Phone: MRI BRAIN WO CONTRASTon 10-06 Patient Name: ANDREW SIFUENTES Magnetic Resonance Imaging ACCESSION EXAM DATE/TIME PROCEDURE ORDERING PROVIDER [id number] 10/27/2021 13:14 EDT MRI Brain w/o Contrast UNASSIGNED, UNASSIGNED CPT code 47860 Reason For Exam (MRI Brain w/o Contrast) stroke Patient has CIGAR MAKING SUPERVISOR shunt in place, please follow Radiology protocol [...] Imaging ACCESSION EXAM DATE/TIME PROCEDURE ORDERING PROVIDER [id number] 10/27/2021 13:14 EDT MRI Brain w/o Contrast UNASSIGNED, UNASSIGNED CPT code 12848 Reason For Exam (MRI Brain w/o Contrast) stroke Patient has CIGAR MAKING SUPERVISOR shunt in place, please follow Radiology protocol [...] Imaging ACCESSION EXAM DATE/TIME PROCEDURE ORDERING PROVIDER [id number] 10/27/2021 13:14 EDT MRI Brain w/o Contrast UNASSIGNED, UNASSIGNED CPT code 00746 Reason For Exam (MRI Brain w/o Contrast) stroke Patient has CIGAR MAKING SUPERVISOR shunt in place, please follow Radiology protocol [...] Transcribed Date and Time: 10/27/2021 2:39 Normal [facility] Prothrombin Timeon INR 2.1 High 0.9-1.1 [facility] Comment on above: Result [...] Infarction Performed By: #### P T #### [facility] [address] [place] [address] PT Coag (PPP) [Time] 21.9 s High 9.0-12.0 [facility] Work Phone: Comment on above: . Result Comment: . Performed By: #### P T #### [facility] [address] [place] [address] Protime-INRon 10-27-2021 INR Coag (Bld) [Relative time] 2.1 {INR} High [facility] Work Phone: Comment on above: Recommended Anticoag [...] review of laboratory results Abnormal [facility] Work Phone: Test Performed by [facility], [address] [place], [place], [place] [address] [facility] Work Phone: CT HEAD WO CONTRASTon 2021 Patient Name: ANDREW SIFUENTES Computed Tomography ACCESSION EXAM DATE/TIME PROCEDURE ORDERING PROVIDER [id number] 10/26/2021 11:[address] Head or Brain w/o JUNIE PINEDA, SARINA Contrast CPT code 88558 Reason For Exam (CT Head or Brain w/o Contrast) hydrocephalus. thank you Report CLINICAL INFORMATION: Hydrocephalus. Shunt. 3 mm axial cuts through the head are obtained without IV contrast. The examination is compared to a previous study dated 06/29/2014. FINDINGS: Old CIGAR MAKING SUPERVISOR shunt tubing is noted bilaterally. The new [...] are clear. IMPRESSION: 1. Old and new CIGAR MAKING SUPERVISOR shunt tubing. 2. No hydrocephalus. 3. Atrophy [...] Tomography ACCESSION EXAM DATE/TIME PROCEDURE ORDERING PROVIDER [id number] 10/26/2021 11:[address] Head or Brain w/o EDWINJUNIE MASON, SARINA Contrast CPT code 45577 Reason For Exam (CT Head or Brain w/o Contrast) hydrocephalus. thank you Report CLINICAL INFORMATION: Hydrocephalus. Shunt. 3 mm axial cuts through the head are obtained without IV contrast. The examination is compared to a previous study dated 06/29/2014. FINDINGS: Old CIGAR MAKING SUPERVISOR shunt tubing is noted bilaterally. The new [...] are clear. IMPRESSION: 1. Old and new CIGAR MAKING SUPERVISOR shunt tubing. 2. No hydrocephalus. 3. Atrophy and evidence of small-vessel ischemic disease. 4. No CT evidence of an acute intracranial process. Report Dictated on --- Final --- Dictating Physician: MD SOLANO JEFFREY Signed Date and Time: 10/26/2021 11:42 am Signed by: MD SOLANO JEFFREY Transcribed Date and Time: 10/26/2021 11:43 [facility] Work Phone: CT HEAD WO CONTRASTOrdered B y: Albert Solano on 10-26-2021 [facility] Work Phone: CT Head or Brain w/o Contras ton 10-26-2021 CT Head or Brain w/o Contrast Patient Name: ANDREW SIFUENTES Computed Tomography ACCESSION EXAM DATE/TIME PROCEDURE ORDERING PROVIDER [id number] 10/26/2021 11:[address] Head or Brain w/o EDWIN, TELEMETRY TECH, SARINA Contrast CPT code 18414 Reason For Exam (CT Head or Brain w/o Contrast) hydrocephalus. thank you Report CLINICAL INFORMATION: Hydrocephalus. Shunt. 3 mm axial cuts through the head are obtained without IV contrast. The examination is compared to a previous study dated 06/29/2014. FINDINGS: Old CIGAR MAKING SUPERVISOR shunt tubing is noted bilaterally. The new [...] are clear. IMPRESSION: 1. Old and new CIGAR MAKING SUPERVISOR shunt tubing. 2. No hydrocephalus. 3. Atrophy and evidence of small-vessel ischemic disease. 4. No CT evidence of an acute intracranial process. Report Dictated on Final Dictating Physician: MD SOLANO JEFFREY Signed Date and Time: 10/26/2021 11:42 am Signed by: MD SOLANO JEFFREY Transcribed Date and Time: 10/26/2021 11:43 Normal [facility] EEG awake and asleepon 10-26 Bony Tompkins MD 10/26/2021 4:[address] [facility] [address] [place] [id number] ROUTINE EEG REPORT Patient Name: Andrew Sifuetnes : 1950 Date of Study: 10/26/2021 Duration Recorded: 23 minutes EEG#: [id number] BOATWRIGHT: CASTRO PROVIDER REQUESTING STUDY: Dr. Barreto REASON FOR EXAM: seizures HISTORY: Andrew Sifuentes is a 71 y.o. 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 At present patient is awake, follows commands, was able to tell his name, and that he was in hospital but not oriented to time. Per documentation patient had NCSE in May 2021, was on Vimpat, but it was discontinued as there was no evidence of recurrent seizures in July 2021 by Neurology at [facility], per daughter patient was on Dilantin [...] study with video was carried out at [facility]. Scalp electrodes were positioned in person by an neurology technologist, following patient education, according to the 10-20 International system of electrode placement and maintained for integrity and quality of the recording. EEG data with video was recorded continuously and digitally stored. The neurology technologist reviewed all automated detections and manual [...] No normal vari (more content not included)... [facility] Work [facility]: [facility] Work Phone: No Panel Informationon 10-26 Radiology Study observation (narrative) [facility] Work Phone: Prothrombin Timeon 2 INR 1.9 High 0.9-1.1 [facility] Comment on above: Result Comment: Harry mmended [...] Infarction Performed By: #### C OVAG #### [facility] [address] [place] [address] PT Coag (PPP) [Time] 19.7 s High 9.0-12.0 [facility] Comment on above: Result Comment: . Performed By: #### C OVAG #### [facility] [address] [place] [address] Protime-INRon 10-26-2021 INR Coag (Bld) [Relative time] 1.9 {INR} High [facility] Work Phone: Comment on above: Recommended Anticoag [...] review of laboratory results Abnormal [facility] Work Phone: PT Coag (PPP) [Time] 19.7 s High 9.0 - 12.0 s [facility] Work Phone: Comment on above: . Test Performed by [facility], [address], [place], [place] [address] [facility] Work Phone: CA 19-9on 10-25-2021 CA 19-9 17 U/mL Normal <=35 [facility] Work Phone: Comment on above: INTERPRETIVE INFORMA [...] or absence of malignant disease. Performed By: [facility] [address] [place] [address] [employer] Assistant Department Head: Quiana Castro MD Result Comment: INTE RPRETIVE [...] or absence of malignant disease. Performed By: [facility] [address] [place] [address] [employer] Assistant Department Head: Quiana Castro MD Performed By: #### C OVAG #### [facility] [address] [place] [address] Cancer Antigen 19-9on 2021 [facility] Work Phone: Prothrombin Timeon 2 INR 1.5 High 0.9-1.1 [facility] Comment on above: Result [...] Infarction Performed By: #### P T #### [facility] [address] [place] [address] PT Coag (PPP) [Time] 15.6 s High 9.0-12.0 [facility] Comment on above: Result Comment: . Performed By: #### P T #### [facility] [address] [place] [address] Protime-INRon 10-25-2021 INR Coag (Bld) [Relative time] 1.5 {INR} High [facility] Work Phone: Comment on above: Recommended Anticoag [...] review of laboratory results Abnormal [facility] Work Phone: PT Coag (PPP) [Time] 15.6 s High 9.0 - 12.0 s [facility] Work Phone: Comment on above: . Test Performed by [facility], [address] [place] [address] [facility] Work Phone: B-2 Glycoprotein (IGA)on Beta-2 Glyco 1 IgA <2.0 U/mL [facility] Work Phone: Comment on above: Interpretive Informa tion: Results equal to or greater than 20 U/mL = POSITIVE Results less than 20 U/mL = NEGATIVE B2 Glycoprotein I (IgM) Abon 10-24-2021 Beta-2 Glyco 1 IgM <1.5 U/mL [facility] Work Phone: Comment on above: Interpretive Informa tion: Results equal to or greater than 20 U/mL = POSITIVE Results less than 20 U/mL = NEGATIVE B2 Glycoprotein I Igg Abon 0 10-24-2021 Beta-2 Glyco 1 IgG <1.4 U/mL [facility] Work Phone: Comment on above: Interpretive Informa tion: Results equal to or greater than 20 U/mL = POSITIVE Results less than 20 U/mL = NEGATIVE Basic Metabolic Panelon 06-2 -2021 Anion gap [Moles/Vol] 8 mmol/L Normal 3-13 [facility] Comment on above: Performed By: #### C A19O, LUPUS #### The performing lab is in the report. #### NSEO #### [facility] #### HEMDF, LDH3, BMP3, MG3, PT, CEA2 #### [facility] [address] [place] [address] #### B2GPM, B2GPA, B2GPG #### [address] [address] Calcium [Mass/Vol] 8.8 mg/dL Normal 8.4-10.4 [facility] Comment on above: Performed By: #### C A19O, LUPUS #### The performing lab is in the report. #### NSEO #### [facility] #### HEMDF, LDH3, BMP3, MG3, PT, CEA2 #### [facility] [address] [place] [address] #### B2GPM, B2GPA, B2GPG #### [address] [address] CO2 [Moles/Vol] 25 mmol/L Normal 22-30 [facility] Comment on above: Performed By: #### C A19O, LUPUS #### The performing lab is in the report. #### NSEO #### [facility] #### HEMDF, LDH3, BMP3, MG3, PT, CEA2 #### [facility] [address] [place] [address] #### B2GPM, B2GPA, B2GPG #### [address] Creatinine [Mass/Vol] 0.74 mg/dL Normal 0.52-1.25 [facility] Comment on above: Performed By: #### C A19O, LUPUS #### The performing lab is in the report. #### NSEO #### [facility] #### HEMDF, LDH3, BMP3, MG3, PT, CEA2 #### [facility] [address] [place] #### B2GPM, B2GPA, B2GPG #### [address] eGFR OTHER > 90.0 Normal >60 [facility] Comment on above: Result Comment: KDIG [...] HEMDF, LDH3, BMP3, MG3, PT, CEA2 #### [facility] [address] [facility] [address] #### B2GPM, B2GPA, B2GPG #### [address] GFR/1.73 sq M.predicted among blacks MDRD (S/P/Bld) [Vol rate/Area] mL/min/{1.73_m2} Normal >60 [facility] Comment on above: Performed By: #### C A19O, LUPUS #### The performing lab is in the report. #### NSEO #### [facility] #### HEMDF, LDH3, BMP3, MG3, PT, CEA2 #### [address] [place] [address] #### B2GPM, B2GPA, B2GPG #### [address] Glucose [Mass/Vol] 116 mg/dL High 70-100 [facility] Comment on above: Performed By: #### C A19O, LUPUS #### The performing lab is in the report. #### NSEO #### [facility] #### HEMDF, LDH3, BMP3, MG3, PT, CEA2 #### [address] [place] [address] #### B2GPM, B2GPA, B2GPG #### [address] Urea nitrogen [Mass/Vol] 19 mg/dL High 7-17 [facility] Comment on above: Performed By: #### C A19O, LUPUS #### The performing lab is in the report. #### NSEO #### [facility] #### HEMDF, LDH3, BMP3, MG3, PT, CEA2 #### [address] [place] [address] #### B2GPM, B2GPA, B2GPG #### [address] Chloride [Moles/Vol] 107 mmol/L Normal 98-107 [facility] Comment on above: Performed By: #### C A19O, LUPUS #### The performing lab is in the report. #### NSEO #### [facility] #### HEMDF, LDH3, BMP3, MG3, PT, CEA2 #### [place] [address] [place] [address] #### B2GPM, B2GPA, B2GPG #### [address] Potassium [Moles/Vol] 3.9 mmol/L Normal 3.5-5.1 [facility] Comment on above: Performed By: #### C A19O, LUPUS #### The performing lab is in the report. #### NSEO #### [facility] #### HEMDF, LDH3, BMP3, MG3, PT, CEA2 #### [place] [address] [place] [address] #### B2GPM, B2GPA, B2GPG #### [address] Sodium [Moles/Vol] 140 mmol/L Normal 135-145 [facility] Comment on above: Performed By: #### C A19O, LUPUS #### The performing lab is in the report. #### NSEO #### [facility] #### HEMDF, LDH3, BMP3, MG3, PT, CEA2 #### [address] [place] [address] #### B2GPM, B2GPA, B2GPG #### [address] Anion gap [Moles/Vol] 8 mmol/L 3 - 13 mmol/L [facility] Calcium [Mass/Vol] 8.8 mg/dL 8.4 - 10. 4 mg/dL [facility] Chloride [Moles/Vol] 107 mmol/L 98 - 10 7 mmol/L [facility] CO2 [Moles/Vol] 25 mmol/L 22 - 30 mmol/L [facility] Creatinine [Mass/Vol] 0.74 mg/dL 0.52 - 1.25 mg/dL [facility] EGFR IF NonAfrican Australian >90.0 >60 mL/min [facility] Comment on above: KDIGO guidelines pro [...] mg/dL [facility] Test Performed by [facility], [address] [place], [place] [id number] [place] [address] LAB [facility] Beta-2 Glycoprotein I IgAon 10-24-2021 Beta-2 Glycoprotein I IgA < 2.0 Normal [facility] Comment on above: Result Comment: Inte rpretive Information: Results equal to or greater than 20 U/mL = POSITIVE Results less than 20 U/mL = NEGATIVE Performed By: #### C OVAG #### [facility] [address] [place] [address] Beta-2 Glycoprotein I IgGon 10-24-2021 Beta-2 Glycoprotein I IgG < 1.4 Normal [facility] Comment on above: Result Comment: Inte rpretive Information: Results equal to or greater than 20 U/mL = POSITIVE Results less than 20 U/mL = NEGATIVE Performed By: #### C OVAG #### [facility] [address] [place] [address] Beta-2 Glycoprotein I IgMon 10-24-2021 Beta-2 Glycoprotein I IgM < 1.5 Normal [facility] Comment on above: Result Comment: Inte rpretive Information: Results equal to or greater than 20 U/mL = POSITIVE Results less than 20 U/mL = NEGATIVE Performed By: #### C OVAG #### [facility] [address] [place] [address] No Panel Informationon 10-24 [facility] Test Performed by [facility], [address] [place] [address] [facility] Work Phone: PROTEIN C FUNCTIONALon 10-24 Interpretation and review of laboratory results Abnormal [facility] Protein C-Functional 185 % High 83 - [...] reference intervals for this test in the [employer] Laboratory Test Directory ([employer]). Performed by [facility], [address] [place] [address] [email or web address], Quiana Castro MD - Lab. Director Protein C, Functionalon 10-06 Protein C, Functional 185 % High 83-168 [facility] Comment on above: Result Comment: INTE [...] reference intervals for this test in the [employer] Laboratory Test Directory ([employer]). Performed by [facility], [address] [place] [address] [email or web address], Quiana Castro MD - Lab. Director Performed By: #### P T #### [facility] [address] [place] [address] Protein S, Functionalon 10-06 Protein S, Functional 138 % Normal 66-143 [facility] Comment on above: INTERPRETIVE INFORMA [...] reference intervals for this test in the [employer] Laboratory Test Directory ([employer]). Performed by [facility], [address] [place] [address] [email or web address], Quiana Castro MD - Lab. Director Result [...] reference intervals for this test in the [employer] Laboratory Test Directory (Keep[employer]). Performed by [facility], [address] [facility] [id number] [email or web address], Quiana Castro MD - Lab. Director Performed By: #### P T #### [facility] [address] [place] [address] Prothrombin Timeon 2 INR 1.2 High 0.9-1.1 [facility] Comment on above: Result [...] HEMDF, LDH3, BMP3, MG3, PT, CEA2 #### [facility] [address] [place] [address] #### B2GPM, B2GPA, B2GPG #### [address] [address] PT Coag (PPP) [Time] 12.6 s High 9.0-12.0 [facility] Comment on above: Result Comment: . Performed By: #### C A19O, LUPUS #### The performing lab is in the report. #### NSEO #### [facility] #### HEMDF, LDH3, BMP3, MG3, PT, CEA2 #### [facility] [address] [place] [address] #### B2GPM, B2GPA, B2GPG #### [address] [address] Protime-INRon 10-24-2021 INR Coag (Bld) [Relative time] 1.2 {INR} High [facility] Comment on above: Recommended Anticoag ulant Therapy: [...] review of laboratory results Abnormal [facility] PT Coag (PPP) [Time] 12.6 s High 9.0 - 12.0 s [facility] Comment on above: . Test Performed by [facility], [address] [place], [place] [address] [facility] Basic Metabolic Panelon 10-05 Anion gap [Moles/Vol] 10 mmol/L Normal 3-13 [facility] Comment on above: Performed By: #### C A19O, LUPUS #### The performing lab is in the report. #### NSEO #### [facility] #### HEMDF, LDH3, BMP3, MG3, PT, CEA2 #### [facility] [address] [place] [address] #### B2GPM, B2GPA, B2GPG #### [address] Calcium [Mass/Vol] 9.6 mg/dL Normal 8.4-10.4 [facility] Comment on above: Performed By: #### C A19O, LUPUS #### The performing lab is in the report. #### NSEO #### [facility] #### HEMDF, LDH3, BMP3, MG3, PT, CEA2 #### [address] [place] [address] #### B2GPM, B2GPA, B2GPG #### [address] CO2 [Moles/Vol] 27 mmol/L Normal 22-30 [facility] Comment on above: Performed By: #### C A19O, LUPUS #### The performing lab is in the report. #### NSEO #### [facility] #### HEMDF, LDH3, BMP3, MG3, PT, CEA2 #### [address] [place] [address] #### B2GPM, B2GPA, B2GPG #### [address] Glucose [Mass/Vol] 109 mg/dL High 70-100 [facility] Comment on above: Performed By: #### C A19O, LUPUS #### The performing lab is in the report. #### NSEO #### [facility] #### HEMDF, LDH3, BMP3, MG3, PT, CEA2 #### [place] [address] [place] [address] #### B2GPM, B2GPA, B2GPG #### [address] Urea nitrogen [Mass/Vol] 18 mg/dL High 7-17 [facility] Comment on above: Performed By: #### C A19O, LUPUS #### The performing lab is in the report. #### NSEO #### [facility] #### HEMDF, LDH3, BMP3, MG3, PT, CEA2 #### [address] [place] [address] #### B2GPM, B2GPA, B2GPG #### [address] Creatinine [Mass/Vol] 0.82 mg/dL Normal 0.52-1.25 [facility] Comment on above: Performed By: #### C A19O, LUPUS #### The performing lab is in the report. #### NSEO #### [facility] #### HEMDF, LDH3, BMP3, MG3, PT, CEA2 #### [address] [place] [address] #### B2GPM, B2GPA, B2GPG #### [address] GFR/1.73 sq M.predicted among blacks MDRD (S/P/Bld) [Vol rate/Area] mL/min/{1.73_m2} Normal >60 [facility] Comment on above: Performed By: #### C A19O, LUPUS #### The performing lab is in the report. #### NSEO #### [facility] #### HEMDF, LDH3, BMP3, MG3, PT, CEA2 #### [address] [place] [address] #### B2GPM, B2GPA, B2GPG #### [address] GFR/1.73 sq M.predicted among non-blacks MDRD (S/P/Bld) [Vol rate/Area] 89.9 mL/min/{1.73_m2} Normal >60 [facility] Comment on above: Result Comment: KDIG [...] HEMDF, LDH3, BMP3, MG3, PT, CEA2 #### [facility] [address] [place] [address] #### B2GPM, B2GPA, B2GPG #### [address] [address] Chloride [Moles/Vol] 104 mmol/L Normal 98-107 [facility] [facility] Comment on above: Performed By: #### C A19O, LUPUS #### The performing lab is in the report. #### NSEO #### [facility] #### HEMDF, LDH3, BMP3, MG3, PT, CEA2 #### [facility] [address] [place] [address] #### B2GPM, B2GPA, B2GPG #### [address] [address] Potassium [Moles/Vol] 3.9 mmol/L Normal 3.5-5.1 [facility] Comment on above: Performed By: #### C A19O, LUPUS #### The performing lab is in the report. #### NSEO #### [facility] #### HEMDF, LDH3, BMP3, MG3, PT, CEA2 #### [facility] [address] [place] [address] #### B2GPM, B2GPA, B2GPG #### [facility] [address], [place] Sodium [Moles/Vol] 142 mmol/L Normal 135-145 [facility] Comment on above: Performed By: #### C A19O, LUPUS #### The performing lab is in the report. #### NSEO #### [facility] #### HEMDF, LDH3, BMP3, MG3, PT, CEA2 #### [facility] [address] [place] [address] #### B2GPM, B2GPA, B2GPG #### [facility] [address], [place] Anion gap [Moles/Vol] 10 mmol/L 3 - 13 mmol/L [facility] Work Phone: Calcium [Mass/Vol] 9.6 mg/dL 8.4 - 10. 4 mg/dL [employer] Work Phone: Chloride [Moles/Vol] 104 mmol/L 98 - 10 7 mmol/L [facility] Work Phone: CO2 [Moles/Vol] 27 mmol/L 22 - 30 mmol/L [facility] Work Phone: Creatinine [Mass/Vol] 0.82 mg/dL 0.52 - 1.25 mg/dL [employer] Work Phone: EGFR IF NonAfrican Australian 89.9 mL/min >60 [employer] Work Phone: Comment on above: KDIGO guidelines [...] MDRD (S/P/Bld) [Vol rate/Area] mL/min/{1.73_m2} >60 mL/min [employer] Work Phone: [phone] Glucose [Mass/Vol] 109 mg/dL High 70 - 100 mg/dL [facility] Work Phone: [phone] Interpretation and review of laboratory results Abnormal [facility] Work Phone: 222 Potassium [Moles/Vol] 3.9 mmol/L 3.5 - 5.1 mmol/L [facility] Work Phone: ) 222 Sodium [Moles/Vol] 142 mmol/L 135 - 145 mmol/L [facility] Work Phone: 222 Urea nitrogen (BldV) [Mass/Vol] 18 mg/dL High 7 - 17 mg/dL [facility] Work Phone: [phone] CBC with Auto Differentialon 10-23-2021 Absolute Baso # 0.1 10*3/uL 0.0 - 0.2 10*3/uL [facility] Work Phone: ) 222 Absolute Neut # 6.6 10*3/uL 1.8 - 7.0 10*3/uL [facility] Work Phone: ) 222 Basophils/100 WBC (Bld) 1.1 % 0.0 - 2.0 % [facility] Work Phone: ) 222 Eosinophils (Bld) [#/Vol] 0.4 10*3/uL 0.0 - 0.5 10*3/uL [facility] Work Phone: [phone] Eosinophils/100 WBC (Bld) 3.9 % 1.0 - 6.0 % [facility] Work Phone: ) 222 Granulocytes/100 WBC (Bld) 64.0 % 40.0 - 80.0 % [facility] Work Phone: Hematocrit (Bld) [Volume fraction] 35.1 % Low 40.0 - 52.0 % [facility] Work Phone: Hemoglobin (Bld) [Mass/Vol] 11.6 g/dL Low 13.0 - 18.0 g/dL [facility] Work Phone: Interpretation and review of laboratory results Abnormal [facility] Work Phone: Lymphocytes (Bld) [#/Vol] 2.6 10*3/uL 1.0 - 4.3 10*3/uL [facility] Work Phone: Lymphocytes/100 WBC (Bld) 25.0 % 20.0 - 40.0 % [employer] Phone: MCH (RBC) [Entitic mass] 28.4 pg 26.0 - 34.0 pg [employer] Phone: MCHC (RBC) [Mass/Vol] 33.1 % 32.0 - 36.0 % [facility] Work Phone: MCV (RBC) [Entitic vol] 85.9 fL 80.0 - 98.0 fL [employer] Phone: Monocytes (Bld) [#/Vol] 0.6 10*3/uL 0.0 - 0.8 10*3/uL [facility] Phone: 222 Monocytes/100 WBC (Bld) 6.0 % 2.0 - 10.0 % [facility] Work Phone: Platelet distribution width (Bld) [Ratio] 17.4 % High 11.5 - 14.5 % [employer] Phone: Platelet mean volume (Bld) [Entitic vol] 8.1 fL 7.4 - 12.4 fL [employer] Phone: Comment on above: MPV is a calculated measurement using platelet volume ratio. Platelets (Bld) [#/Vol] 450 10*3/uL High 140 - 440 10*3/uL [facility] Work Phone: RBC (Bld) [#/Vol] 4.08 10*6/uL Low 4.40 - 5.9 0 10*6/uL [facility] Work Phone: WBC (Bld) [#/Vol] 10.3 10*3/uL 3.6 - 10.7 10*3/uL [facility] Work Phone: Test Performed by [facility], [address] [place], [place] [id number] [place] [address] LAB [facility] Work Phone: CEAon 10-23-2021 CEA 0.8 ng/mL 0.0 - 3.0 ng/mL [facility] Work Phone: Test Performed by [facility], [facility] [address] LAB [facility] Work Phone: [phone] Carcinoembryonic Agon 2021 Carcinoembryonic Ag. 0.8 ng/mL Normal 0.0-3.0 [facility] Comment on above: Performed By: #### C A19O, LUPUS #### The performing lab is in the report. #### NSEO #### [facility] #### HEMDF, LDH3, BMP3, MG3, PT, CEA2 #### [facility] [address] [place] [address] #### B2GPM, B2GPA, B2GPG #### [address] [address] Hemogram w/ Autodiffon 10-23 Abs Baso Cnt 0.1 10*3/uL Normal 0.0-0.2 [facility] Comment on above: Performed By: #### C A19O, LUPUS #### The performing lab is in the report. #### NSEO #### [facility] #### HEMDF, LDH3, BMP3, MG3, PT, CEA2 #### [facility] [address] [place] [address] #### B2GPM, B2GPA, B2GPG #### [facility] [address] [place] [address] Abs Neutrophile Cnt 6.6 10*3/uL Normal 1.8-7.0 [facility] Comment on above: Performed By: #### C A19O, LUPUS #### The performing lab is in the report. #### NSEO #### [facility] #### HEMDF, LDH3, BMP3, MG3, PT, CEA2 #### [facility] [address] [place] [address] #### B2GPM, B2GPA, B2GPG #### [address] [address] Basophils/100 WBC (Bld) 1.1 % Normal 0.0-2.0 [facility] Comment on above: Performed By: #### C A19O, LUPUS #### The performing lab is in the report. #### NSEO #### [facility] #### HEMDF, LDH3, BMP3, MG3, PT, CEA2 #### [facility] [address] [place] [address] #### B2GPM, B2GPA, B2GPG #### [address] Eosinophils (Bld) [#/Vol] 0.4 10*3/uL Normal 0.0-0.5 [facility] Comment on above: Performed By: #### C A19O, LUPUS #### The performing lab is in the report. #### NSEO #### [facility] #### HEMDF, LDH3, BMP3, MG3, PT, CEA2 #### [facility] [address] [place] [address] #### B2GPM, B2GPA, B2GPG #### [address] [address] Eosinophils/100 WBC (Bld) 3.9 % Normal 1.0-6.0 [facility] Comment on above: Performed By: #### C A19O, LUPUS #### The performing lab is in the report. #### NSEO #### [facility] #### HEMDF, LDH3, BMP3, MG3, PT, CEA2 #### [address] [place] [address] #### B2GPM, B2GPA, B2GPG #### [address] Erythrocyte distribution width (RBC) [Ratio] 17.4 % High 11.5-14.5 [facility] Comment on above: Performed By: #### C A19O, LUPUS #### The performing lab is in the report. #### NSEO #### [facility] #### HEMDF, LDH3, BMP3, MG3, PT, CEA2 #### [address] [place], [place] #### B2GPM, B2GPA, B2GPG #### [address] Granulocytes/100 WBC (Bld) 64.0 % Normal 40.0-80.0 [facility] Comment on above: Performed By: #### C A19O, LUPUS #### The performing lab is in the report. #### NSEO #### [facility] #### HEMDF, LDH3, BMP3, MG3, PT, CEA2 #### [address] [place], [place] #### B2GPM, B2GPA, B2GPG #### [address] Hematocrit (Bld) [Volume fraction] 35.1 % Low 40.0-52.0 [facility] Comment on above: Performed By: #### C A19O, LUPUS #### The performing lab is in the report. #### NSEO #### [facility] #### HEMDF, LDH3, BMP3, MG3, PT, CEA2 #### [address] [place], [place] #### B2GPM, B2GPA, B2GPG #### [address] Hemoglobin (Bld) [Mass/Vol] 11.6 g/dL Low 13.0-18.0 [facility] Comment on above: Performed By: #### C A19O, LUPUS #### The performing lab is in the report. #### NSEO #### [facility] #### HEMDF, LDH3, BMP3, MG3, PT, CEA2 #### [facility] [address] [place] #### B2GPM, B2GPA, B2GPG #### [address] Lymphocytes (Bld) [#/Vol] 2.6 10*3/uL Normal 1.0-4.3 [facility] Comment on above: Performed By: #### C A19O, LUPUS #### The performing lab is in the report. #### NSEO #### [facility] #### HEMDF, LDH3, BMP3, MG3, PT, CEA2 #### [facility] [address] [place] #### B2GPM, B2GPA, B2GPG #### [address] Lymphocytes/100 WBC (Bld) 25.0 % Normal 20.0-40.0 [facility] Comment on above: Performed By: #### C A19O, LUPUS #### The performing lab is in the report. #### NSEO #### [facility] #### HEMDF, LDH3, BMP3, MG3, PT, CEA2 #### [facility] [address] [place] #### B2GPM, B2GPA, B2GPG #### [address] MCH (RBC) [Entitic mass] 28.4 pg Normal 26.0-34.0 [facility] Comment on above: Performed By: #### C A19O, LUPUS #### The performing lab is in the report. #### NSEO #### [facility] #### HEMDF, LDH3, BMP3, MG3, PT, CEA2 #### [facility] [address] [place] [address] #### B2GPM, B2GPA, B2GPG #### [address] MCHC 33.1 % Normal 32.0-36.0 [facility] Comment on above: Performed By: #### C A19O, LUPUS #### The performing lab is in the report. #### NSEO #### [facility] #### HEMDF, LDH3, BMP3, MG3, PT, CEA2 #### [facility] [address] [place], [place] #### B2GPM, B2GPA, B2GPG #### [address] MCV (RBC) [Entitic vol] 85.9 fL Normal 80.0-98.0 [facility] Comment on above: Performed By: #### C A19O, LUPUS #### The performing lab is in the report. #### NSEO #### [facility] #### HEMDF, LDH3, BMP3, MG3, PT, CEA2 #### [facility] [address] [place], [place] #### B2GPM, B2GPA, B2GPG #### [address] Monocytes (Bld) [#/Vol] 0.6 10*3/uL Normal 0.0-0.8 [facility] Comment on above: Performed By: #### C A19O, LUPUS #### The performing lab is in the report. #### NSEO #### [facility] #### HEMDF, LDH3, BMP3, MG3, PT, CEA2 #### [facility] [address] [place] [address] #### B2GPM, B2GPA, B2GPG #### [address] Monocytes/100 WBC (Bld) 6.0 % Normal 2.0-10.0 [facility] Comment on above: Performed By: #### C A19O, LUPUS #### The performing lab is in the report. #### NSEO #### [facility] #### HEMDF, LDH3, BMP3, MG3, PT, CEA2 #### [place] [address] [place] #### B2GPM, B2GPA, B2GPG #### [address] Platelet mean volume (Bld) [Entitic vol] 8.1 fL Normal 7.4-12.4 [facility] Comment on above: Result Comment: MPV is a calculated measurement using platelet volume ratio. Performed By: #### C A19O, LUPUS #### The performing lab is in the report. #### NSEO #### [facility] #### HEMDF, LDH3, BMP3, MG3, PT, CEA2 #### [place] [address] [place] #### B2GPM, B2GPA, B2GPG #### [address] Platelets (Bld) [#/Vol] 450 10*3/uL High 140-440 [facility] Comment on above: Performed By: #### C A19O, LUPUS #### The performing lab is in the report. #### NSEO #### [facility] #### HEMDF, LDH3, BMP3, MG3, PT, CEA2 #### [place] [address] [place] #### B2GPM, B2GPA, B2GPG #### [address] RBC (Bld) [#/Vol] 4.08 10*6/uL Low 4.40-5.90 [facility] Comment on above: Performed By: #### C A19O, LUPUS #### The performing lab is in the report. #### NSEO #### [facility] #### HEMDF, LDH3, BMP3, MG3, PT, CEA2 #### [facility] [address] [place] [address] #### B2GPM, B2GPA, B2GPG #### [address] WBC (Bld) [#/Vol] 10.3 10*3/uL Normal 3.6-10.7 [facility] Comment on above: Performed By: #### C A19O, LUPUS #### The performing lab is in the report. #### NSEO #### [facility] #### HEMDF, LDH3, BMP3, MG3, PT, CEA2 #### [facility] [address] [facility] [address] #### B2GPM, B2GPA, B2GPG #### [address] LDHon 10-23-2021 LDH 136 U/L Normal 120-246 [facility] Comment on above: Performed By: #### C A19O, LUPUS #### The performing lab is in the report. #### NSEO #### [facility] #### HEMDF, LDH3, BMP3, MG3, PT, CEA2 #### [place] [address] [place] [address] #### B2GPM, B2GPA, B2GPG #### [address] Lactate Dehydrogenaseon 10-05 LD 136 U/L 120 - 246 U/L [facility] Work Phone: MRI ABDOMEN WO CONTRASTon Patient Name: ANDREW SIFUENTES [facility] ACCESSION EXAM DATE/TIME PROCEDURE ORDERING PROVIDER [id number] 10/23/2021 11:08 EDT MRI Abdomen w/o Contrast WING SRIVASTAVA CPT code 96318 Reason For Exam (MRI Abdomen w/o Contrast) [...] VLADIMIR Transcribed Date and Time: 10/23/2021 4:36 [facility] Result, Unknown Prov ider - 10/23/2021 Patient Name: ANDREW SIFUENTES [facility] ACCESSION EXAM DATE/TIME PROCEDURE ORDERING PROVIDER [id number] 10/23/2021 11:08 EDT MRI Abdomen w/o Contrast WING SRIVASTAVA CPT code 80212 Reason For Exam (MRI Abdomen w/o Contrast) [...] VLADIMIR Transcribed Date and Time: 10/23/2021 4:36 [facility] Work Phone: MRI ABDOMEN WO CONTRASTOrder ed By: Unknown Result on 10-23-2021 [facility] MRI Abdomen w/o Contraston 0 10-23-2021 MRI Abdomen w/o Contrast Patient Name: ANDREW SIFUENTES [facility] ACCESSION EXAM DATE/TIME PROCEDURE ORDERING PROVIDER [id number] 10/23/2021 11:08 EDT MRI Abdomen w/o Contrast WING SRIVASTAVA CPT code 45062 Reason For Exam (MRI Abdomen w/o Contrast) [...] CAMILA Transcribed Date and Time: 10/23/2021 4:36 Normal [facility] Magnesiumon 10-23-2021 Magnesium [Mass/Vol] 2.1 mg/dL Normal 1.6-2.3 [facility] Comment on above: Performed By: #### C A19O, LUPUS #### The performing lab is in the report. #### NSEO #### [facility] #### HEMDF, LDH3, BMP3, MG3, PT, CEA2 #### [facility] [address] [place] [address] #### B2GPM, B2GPA, B2GPG #### [facility] [address] [place] [address] Magnesium [Mass/Vol] 2.1 mg/dL 1.6 - 2 .3 mg/dL [facility] Work Phone: No Panel Informationon 10-23 Test Performed by [facility], [address] [place], [place] [id number] [place] [address] LAB [facility] Work Phone: Prothrombin Timeon 2 INR 1.1 Normal 0.9-1.1 [facility] Comment on above: Result [...] HEMDF, LDH3, BMP3, MG3, PT, CEA2 #### [facility] [address] [place] [address] #### B2GPM, B2GPA, B2GPG #### [facility] [employer] [address] [place] [address] PT Coag (PPP) [Time] 12.2 s High 9.0-12.0 [facility] Comment on above: Result Comment: . Performed By: #### C A19O, LUPUS #### The performing lab is in the report. #### NSEO #### [facility] #### HEMDF, LDH3, BMP3, MG3, PT, CEA2 #### [facility] [address] [place] [address] #### B2GPM, B2GPA, B2GPG #### [facility] [address] [place] [address] Protime-INRon 10-23-2021 INR Coag (Bld) [Relative time] 1.1 {INR} [facility] Work Phone: Comment on above: Recommended Anticoag [...] review of laboratory results Abnormal [facility] Work Phone: PT Coag (PPP) [Time] 12.2 s High 9.0 - 12.0 s [facility] Work Phone: Comment on above: . Test Performed by [facility], [address] [place], [place], [place] [id number] [place] [address] LAB [facility] Work Phone: Basic Metabolic Panelon 10-05 Calcium [Mass/Vol] 8.9 mg/dL Normal 8.4-10.4 [facility] Comment on above: Performed By: #### P T #### [facility] [address] [place] [address] Glucose [Mass/Vol] 110 mg/dL High 70-100 [facility] Comment on above: Performed By: #### P T #### [facility] [address] [place] [address] Urea nitrogen [Mass/Vol] 14 mg/dL Normal 7-17 [facility] Comment on above: Performed By: #### P T #### [facility] [address] [place] [address] Anion gap [Moles/Vol] 7 mmol/L Normal 3-13 [facility] Comment on above: Performed By: #### P T #### [facility] [address] [place] [address] CO2 [Moles/Vol] 26 mmol/L Normal 22-30 [facility] Comment on above: Performed By: #### P T #### [facility] [address] [place] [address] Creatinine [Mass/Vol] 0.71 mg/dL Normal 0.52-1.25 [facility] Comment on above: Performed By: #### P T #### [facility] [address] [place] [address] eGFR OTHER > 90.0 Normal >60 [facility] Comment on above: Result Comment: KDIG [...] secretion. Performed By: #### P T #### [facility] [address] [place] [address] GFR/1.73 sq M.predicted among blacks MDRD (S/P/Bld) [Vol rate/Area] mL/min/{1.73_m2} Normal >60 [facility] Comment on above: Performed By: #### P T #### [facility] [address] [place] [address] Potassium [Moles/Vol] 3.8 mmol/L Normal 3.5-5.1 [facility] Comment on above: Performed By: #### P T #### [facility] [address] [place] [address] Chloride [Moles/Vol] 106 mmol/L Normal 98-107 [facility] Comment on above: Performed By: #### P T #### [facility] [address] [place] [address] Sodium [Moles/Vol] 139 mmol/L Normal 135-145 [facility] Comment on above: Performed By: #### P T #### [facility] [address] [place] [address] Anion gap [Moles/Vol] 7 mmol/L 3 - 13 mmol/L [facility] Calcium [Mass/Vol] 8.9 mg/dL 8.4 - 10. 4 mg/dL [facility] Chloride [Moles/Vol] 106 mmol/L 98 - 10 7 mmol/L [facility] CO2 [Moles/Vol] 26 mmol/L 22 - 30 mmol/L [facility] Creatinine [Mass/Vol] 0.71 mg/dL 0.52 - 1.25 mg/dL [facility] EGFR IF NonAfrican Australian >90.0 >60 mL/min [facility] Comment on above: KDIGO guidelines pro vide [...] 10*3/uL [facility] Test Performed by [facility], [address] LAB [facility] Pelvis Wo Contras ton 10-22-2021 Patient Name: ANDREW LARSEN Computed Tomography ACCESSION EXAM DATE/TIME PROCEDURE ORDERING PROVIDER [id number] 10/22/2021 13:[address] Abdomen/Pelvis (No SRIVASTAVA, WING PO, No IV) CPT code 00904 Reason For Exam (CT Abdomen/Pelvis (No PO, [...] Tomography ACCESSION EXAM DATE/TIME PROCEDURE ORDERING PROVIDER [id number] 10/22/2021 13:[address] Abdomen/Pelvis (No SRIVASTAVA, WING PO, No IV) CPT code 43528 Reason For Exam (CT Abdomen/Pelvis (No PO, [...] but are most likely small cysts or poloomas. No other mass or intrahepatic biliary dilatation [...] Abdomen/Pelvis w/o Contrast Patient [facility]: [id number] Tomography ACCESSION EXAM DATE/TIME PROCEDURE ORDERING PROVIDER [id number] 10/22/2021 13:[address] Abdomen/Pelvis (No SRIVASTAVA, WING PO, No IV) CPT code 83644 Reason For Exam (CT Abdomen/Pelvis (No PO, [...] Transcribed Date and Time: 10/22/2021 2:37 Normal [facility] Hemogram w/ Autodiffon 10-22 Abs Baso Cnt 0.1 10*3/uL Normal 0.0-0.2 [facility] Comment on above: Performed By: #### P T #### [facility] [address] [place] [address] Abs Neutrophile Cnt 6.0 10*3/uL Normal 1.8-7.0 [facility] Comment on above: Performed By: #### P T #### [facility] [address] [place] [address] Basophils/100 WBC (Bld) 1.0 % Normal 0.0-2.0 [facility] Comment on above: Performed By: #### P T #### [facility] [address] [place] [address] Eosinophils (Bld) [#/Vol] 0.3 10*3/uL Normal 0.0-0.5 [facility] Comment on above: Performed By: #### P T #### [facility] [address] [place] [address] Eosinophils/100 WBC (Bld) 3.0 % Normal 1.0-6.0 [facility] Comment on above: Performed By: #### P T #### [facility] [address] [place] [address] Erythrocyte distribution width (RBC) [Ratio] 17.1 % High 11.5-14.5 [facility] Comment on above: Performed By: #### P T #### [facility] [address] [place] [address] Granulocytes/100 WBC (Bld) 64.1 % Normal 40.0-80.0 [facility] Comment on above: Performed By: #### P T #### [facility] [address] [place] [address] Hematocrit (Bld) [Volume fraction] 33.4 % Low 40.0-52.0 [facility] Comment on above: Performed By: #### P T #### [facility] [address] [place] [address] Hemoglobin (Bld) [Mass/Vol] 10.9 g/dL Low 13.0-18.0 [facility] Comment on above: Performed By: #### P T #### [facility] [address] [place] [address] Lymphocytes (Bld) [#/Vol] 2.5 10*3/uL Normal 1.0-4.3 [facility] Comment on above: Performed By: #### P T #### [facility] [address] [place] [address] Lymphocytes/100 WBC (Bld) 26.3 % Normal 20.0-40.0 [facility] Comment on above: Performed By: #### P T #### [place] [address] [place] [address] MCH (RBC) [Entitic mass] 28.2 pg Normal 26.0-34.0 [facility] Comment on above: Performed By: #### P T #### [facility] [address] [place] [address] MCHC 32.7 % Normal 32.0-36.0 [facility] Comment on above: Performed By: #### P T #### [facility] [address] [place] [address] MCV (RBC) [Entitic vol] 86.3 fL Normal 80.0-98.0 [facility] Comment on above: Performed By: #### P T #### [facility] [address] [place] [address] Monocytes (Bld) [#/Vol] 0.5 10*3/uL Normal 0.0-0.8 [facility] Comment on above: Performed By: #### P T #### [facility] [address] [place] [address] Monocytes/100 WBC (Bld) 5.6 % Normal 2.0-10.0 [facility] Comment on above: Performed By: #### P T #### [facility] [address] [place] [address] Platelet mean volume (Bld) [Entitic vol] 7.6 fL Normal 7.4-12.4 [facility] Comment on above: Result Comment: MPV is a calculated measurement using platelet volume ratio. Performed By: #### P T #### [facility] [address] [place] [address] Platelets (Bld) [#/Vol] 369 10*3/uL Normal 140-440 [facility] Comment on above: Performed By: #### P T #### [facility] [address] [place] [address] RBC (Bld) [#/Vol] 3.87 10*6/uL Low 4.40-5.90 [facility] Comment on above: Performed By: #### P T #### [facility] [address] [place] [address] WBC (Bld) [#/Vol] 9.4 10*3/uL Normal 3.6-10.7 [facility] Comment on above: Performed By: #### P T #### [facility] [address] [place] [address] Magnesiumon 10-22-2021 Magnesium [Mass/Vol] 2.0 mg/dL Normal 1.6-2.3 [facility] Comment on above: Performed By: #### P T #### [facility] [address] [place] [address] Magnesium [Mass/Vol] 2.0 mg/dL 1.6 - 2 .3 mg/dL [facility] No Panel Informationon 10-22 Radiology Study observation (narrative) [facility] Work Phone: Test Performed by [facility], [address] [place], [place] [id number] [place] [address] LAB [facility] Prothrombin Timeon INR 1.1 Normal 0.9-1.1 [facility] Comment on above: Result [...] HEMDF, LDH3, BMP3, MG3, PT, CEA2 #### [facility] [address] [place] [address] #### B2GPM, B2GPA, B2GPG #### [facility] [address] [place] [address] PT Coag (PPP) [Time] 11.8 s Normal 9.0-12.0 [facility] Comment on above: Result Comment: . Performed By: #### C A19O, LUPUS #### The performing lab is in the report. #### NSEO #### [facility] #### HEMDF, LDH3, BMP3, MG3, PT, CEA2 #### [facility] [address] [place] [address] #### B2GPM, B2GPA, B2GPG #### [facility] [address] [place] [address] Protime-INRon 10-22-2021 INR Coag (Bld) [Relative time] 1.1 {INR} [facility] Work Phone: Comment on above: Recommended Anticoag [...] [Time] 11.8 s 9.0 - 12.0 s [employer] Work Phone: Comment on above: . Test Performed by [facility], [address] [place], [place], [place] [id number] [place] [address] LAB [facility] Work Phone: VL Ankle Art Brachial Indice s Extremity Bilateralon 10-22-2021 [facility] Ankle Brachial Index Report Patient DO GurpreetB: 1950 Study 10/21/2021 Name: Andrew Gonzalez (71yrs) Date: Age: 71 Account: [id number] Gender: M Loc: 444W BP: Ordering Physician: Shruthi Malik Core Oven Tender: Rody Cross RDMS, RVT Interpreting Physician: Carina Call Location: [facility] Indications: Foot wounds. Originally ordered as a full PVR. Ordering TELEMETRY TECH had to modify the order to ABIs [...] supine position. Images were obtained using a [employer] vascular ultrasound machine. Arterial pressure indices: + [...] electronically signed by Carina Call 10/22/2021 13:21 [facility] Carina Call MD - 10/22/2021 [facility] Ankle Brachial Index Report Patient DO GurpreetB: 1950 Study 10/21/2021 Name: Andrew Gonzalez (71yr) Date: Age: 71 Account: [id number] Gender: M Loc: 444W BP: Ordering Physician: Shruthi Malik Core Oven Tender: Rody Cross RDMS, RVT Interpreting Physician: Carina Call Location: [facility] Indications: Foot wounds. Originally ordered as a full PVR. Ordering TELEMETRY TECH had to modify the order to ABIs [...] supine position. Images were obtained using a [employer] vascular ultrasound machine. Arterial pressure indices: + [...] electronically signed by Carina Call 10/22/2021 13:21 [employer] Work Phone: [employer] Work Phone: Basic Metabolic Panelon 10-05 Calcium [Mass/Vol] 9.1 mg/dL Normal 8.4-10.4 [facility] Comment on above: Performed By: #### C OVAG #### [facility] [address] [place] [address] Anion gap [Moles/Vol] 6 mmol/L Normal 3-13 [facility] Comment on above: Performed By: #### C OVAG #### [facility] [address] [place] [address] CO2 [Moles/Vol] 29 mmol/L Normal 22-30 [facility] Comment on above: Performed By: #### C OVAG #### [facility] [address] [place] [address] Creatinine [Mass/Vol] 0.90 mg/dL Normal 0.52-1.25 [facility] Comment on above: Performed By: #### C OVAG #### [facility] [address] [place] [address] GFR/1.73 sq M.predicted among blacks MDRD (S/P/Bld) [Vol rate/Area] mL/min/{1.73_m2} Normal >60 [facility] Comment on above: Performed By: #### C OVAG #### [facility] [address] [place] [address] GFR/1.73 sq M.predicted among non-blacks MDRD (S/P/Bld) [Vol rate/Area] 86.6 mL/min/{1.73_m2} Normal >60 [facility] Comment on above: Result Comment: KDIG [...] secretion. Performed By: #### C OVAG #### [facility] [address] [place] [address] Glucose [Mass/Vol] 106 mg/dL High 70-100 [facility] Comment on above: Performed By: #### C OVAG #### [facility] [address] [place] [address] Urea nitrogen [Mass/Vol] 18 mg/dL High 7-17 [facility] Comment on above: Performed By: #### C OVAG #### [facility] [address] [place] [address] Chloride [Moles/Vol] 105 mmol/L Normal 98-107 [facility] Comment on above: Performed By: #### C OVAG #### [facility] [address] [place] [address] Potassium [Moles/Vol] 4.3 mmol/L Normal 3.5-5.1 [facility] Comment on above: Performed By: #### C OVAG #### [facility] [address] [place] [address] Sodium [Moles/Vol] 139 mmol/L Normal 135-145 [facility] Comment on above: Performed By: #### C OVAG #### [facility] [address] [place] [address] Anion gap [Moles/Vol] 6 mmol/L 3 - 13 mmol/L [facility] Calcium [Mass/Vol] 9.1 mg/dL 8.4 - 10. 4 mg/dL [facility] Chloride [Moles/Vol] 105 mmol/L 98 - 10 7 mmol/L [facility] CO2 [Moles/Vol] 29 mmol/L 22 - 30 mmol/L [facility] Creatinine [Mass/Vol] 0.9 mg/dL 0.52 - 1.25 mg/dL [facility] EGFR IF NonAfrican Australian 86.6 mL/min >60 [facility] Comment on above: [...] 106 mg/dL High 70 - 100 mg/dL [facility] Interpretation and review of laboratory results Abnormal [facility] Potassium [Moles/Vol] 4.3 mmol/L 3.5 - 5.1 mmol/L [facility] Sodium [Moles/Vol] 139 mmol/L 135 - 145 mmol/L [facility] Urea nitrogen (BldV) [Mass/Vol] 18 mg/dL High 7 - 17 mg/dL [facility] Test Performed by [facility], [address], [place], [place] [address] [facility] C-Reactive Proteinon 06-17-2 022 CRP [Mass/Vol] 33.5 mg/L High 0.0-9.9 [facility] Comment on above: Result Comment: . Performed By: #### P T #### [facility] [address] [place] [address] CRP [Mass/Vol] 33.5 mg/L High 0.0 - 9.9 mg/L [facility] Comment on above: . Interpretation and review of laboratory results Abnormal [facility] Test Performed by [facility], [address], [place], [place] [address] [facility] CR Calcaneus 2+ Views Lefton 10-21-2021 CR Calcaneus 2+ Views Left Patient Name: ANDREW SIFUENTES Diagnostic Radiology ACCESSION EXAM DATE/TIME PROCEDURE ORDERING PROVIDER [id number] 10/21/2021 15:30 EDT CR Calcaneus 2+ Views [id number] -HELENA SHRUTHI Left CPT code 37970 Reason For Exam (CR Calcaneus 2+ Views [...] Transcribed Date and Time: 10/21/2021 4:33 Normal [facility] CR Chest 1 View Frontalon CR Chest 1 View Frontal Patient Name: ANDREW SIFUENTES Diagnostic Radiology ACCESSION EXAM DATE/TIME PROCEDURE ORDERING PROVIDER [id number] 10/21/2021 08:16 EDT CR Chest 1 View Frontal [id number] LilliSHAILESH MAY CPT code 36630 Reason For Exam (CR Chest 1 View [...] Transcribed Date and Time: 10/21/2021 8:33 Normal [facility] D-Dimer, Innovanceon 10-21-2 022 D-Dimer, Innovance 1.51 mg/L High <0.19-0.50 [facility] Comment on above: Result Comment: Inno saba D-Dimer values of <0.50 mg/L FEU can be used in combination with a pre-test probability model (e.g. Well's) to exclude pulmonary embolism (PE) disease, as well as an aid in the diagnosis of deep vein thrombosis (DVT). Performed By: #### P T #### [facility] [address] [place] [address] D-Dimer, Quantitativeon 06- D-Dimer, Quant 1.51 mg/L High <0.19 - 0.50 [facility] Comment on above: [facility] D-Dimer va lues of <0.50 mg/L FEU can be used in combination with a pre-test probability model (e.g. Well's) to exclude pulmonary embolism (PE) disease, as well as an aid in the diagnosis of deep vein thrombosis (DVT). Interpretation and review of laboratory results Abnormal [facility] Test Performed by [facility], [address], [place], [place] [address] [facility] LAB [facility] ED Provider Noteon ED Provider Note Shilpa SEIBERT ED EMERGENCY DEPARTMENT ENCOUNTER Pt Name: Andrew [...] (HCC) ? Kidney stone ? Neuropathy ? 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 Normal [facility] Hemogramon 10-21-2021 Erythrocyte distribution width (RBC) [Ratio] 17.3 % High 11.5-14.5 [facility] Comment on above: Performed By: #### C OVAG #### [facility] [address] [place] [address] Hematocrit (Bld) [Volume fraction] 33.6 % Low 40.0-52.0 [facility] Comment on above: Performed By: #### C OVAG #### [facility] [address] [place] [address] Hemoglobin (Bld) [Mass/Vol] 10.9 g/dL Low 13.0-18.0 [facility] Comment on above: Performed By: #### C OVAG #### [facility] [address] [place] [address] MCH (RBC) [Entitic mass] 27.8 pg Normal 26.0-34.0 [facility] Comment on above: Performed By: #### C OVAG #### [facility] [address] [place] [address] MCHC 32.5 % Normal 32.0-36.0 [facility] Comment on above: Performed By: #### C OVAG #### [facility] [address] [place] [address] MCV (RBC) [Entitic vol] 85.6 fL Normal 80.0-98.0 [facility] Comment on above: Performed By: #### C OVAG #### [facility] [address] [place] [address] Platelet mean volume (Bld) [Entitic vol] 7.7 fL Normal 7.4-12.4 [facility] Comment on above: Result Comment: MPV is a calculated measurement using platelet volume ratio. Performed By: #### C OVAG #### [facility] [address] [place] [address] Platelets (Bld) [#/Vol] 404 10*3/uL Normal 140-440 [facility] Comment on above: Performed By: #### C OVAG #### [facility] [address] [place] [address] RBC (Bld) [#/Vol] 3.93 10*6/uL Low 4.40-5.90 [facility] Comment on above: Performed By: #### C OVAG #### [facility] [address] [place] [address] WBC (Bld) [#/Vol] 11.6 10*3/uL High 3.6-10.7 [facility] Comment on above: Performed By: #### C OVAG #### [facility] [address] [place] [address] Hemogram (CBC)on 10-21-2021 Hematocrit (Bld) [Volume fraction] 33.6 % Low 40.0 - 52.0 % [facility] Hemoglobin (Bld) [Mass/Vol] 10.9 g/dL Low 13.0 - 18.0 g/dL [facility] Interpretation and review of laboratory results Abnormal [facility] MCH (RBC) [Entitic mass] 27.8 pg [...] 10*3/uL [facility] Test Performed by [facility], [address] LAB [facility] NM LUNG VENT/PERFUSION (VQ)o n 10-21-2021 Patient Name: ANDREW SIFUENTES Nuclear Medicine ACCESSION EXAM DATE/TIME PROCEDURE ORDERING PROVIDER [id number] 10/21/2021 07:55 EDT NM Pulmonary Perfusion [id number] MAY BOGGS w/ Vent Aerosol CPT code 68548 A9567 Reason For Exam (NM Pulmonary Perfusion [...] Medicine ACCESSION EXAM DATE/TIME PROCEDURE ORDERING PROVIDER [id number] 10/21/2021 07:55 EDT NM Pulmonary Perfusion [id number] -MAY CASH w/ Vent Aerosol CPT code 18270 A9567 Reason For Exam (NM Pulmonary Perfusion [...] Medicine ACCESSION EXAM DATE/TIME PROCEDURE ORDERING PROVIDER [id number] 10/21/2021 07:55 EDT NM Pulmonary Perfusion [id number] MAY BOGGS w/ Vent Aerosol CPT code 83830 A9567 Reason For Exam (NM Pulmonary Perfusion [...] Transcribed Date and Time: 10/21/2021 8:49 Normal [facility] No Panel Informationon 10-21 Radiology Study observation (narrative) [facility] Work Phone: Prothrombin Timeon 2 INR 1.1 Normal 0.9-1.1 [facility] Comment on above: Result [...] Infarction Performed By: #### C OVAG #### [facility] [address] [place] [address] PT Coag (PPP) [Time] 11.5 s Normal 9.0-12.0 [facility] Comment on above: Result Comment: . Performed By: #### C OVAG #### [facility] [address] [place] [address] Protime-INRon 10-21-2021 INR Coag (Bld) [Relative time] 1.1 {INR} [facility] Comment on above: Recommended Anticoag ulant Therapy: [...] [Time] 11.5 s 9.0 - 12.0 s [facility] Comment on above: . Test Performed by [facility], [address] LAB [facility] Retic Count(%)on 10-21-2021 Retic Count(%) 1.6 Normal [facility] Comment on above: Result Comment: [place] < 5% Adults 0.5 - 1.5% Performed By: #### P T #### [facility] [address] [place] [address] Reticulocyteson 10-21-[address] Pct 1.6 [facility] Comment on above: [place] < 5% Adults 0.5 - 1.5% Test Performed by [facility], [address] LAB [facility] Sed Rateon 10-21-2021 Sed Rate 63 mm/h High 0-10 [facility] Comment on above: Performed By: #### P T #### [facility] [address] [place] [address] Sedimentation Rateon 022 Interpretation and review of laboratory results Abnormal [facility] Sed Rate 63 mm/h High 0 - 10 mm/h [facility] Test Performed by [facility], [address] LAB [facility] VL CARMELLA Upr/L Extremity Art 1 -2 Levelson 10-21-2021 VL CARMELLA Upr/L Extremity Art 1-2 Levels Patient Name: ANDREW SIFUENTES Ultrasound ACCESSION EXAM DATE/TIME PROCEDURE ORDERING PROVIDER [id number] 10/21/2021 16:12 EDT VL Upr/L Extremity Art [id number] -SHRUTHI MALIK 1-2 Levels CPT code 98118 Reason For Exam (VL Upr/L Extremity Art 1-2 Levels) both lower legs CARMELLA for both feet wounds. Report [facility] Ankle Brachial Index Report Patient DO GurpreetB: 1950 Study 10/21/2021 Name: Andrew Gonzalez (71yrs) Date: Age: 71 Account: [id number] Gender: M Loc: 444W BP: Ordering Physician: Shruthi Malik Core Oven Tender: Rody Cross RDMS, RVT Interpreting Physician: Carina Call Location: [facility] Indications: Foot wounds. Originally ordered as a full PVR. Ordering TELEMETRY TECH had to modify the order to ABIs [...] supine position. Images were obtained using a [employer] vascular ultrasound machine. Arterial pressure indices: + [...] CARINA HENNESSY Cardiovascular ACCESSION EXAM DATE/TIME PROCEDURE [id number] 10/21/2021 16:12 EDT VL Upr/L Extremity Art 1-2 Levels CPT code 45262 Reason For Exam (VL Upr/L Extremity Art 1-2 Levels) both lower legs CARMELLA for both feet wounds. Report [facility] Ankle Brachial Index Report Patient DO GurpreetB: 1950 Study 10/21/2021 Name: Andrew Gonzalez (71yrs) Date: Age: 71 Account: [id number] Cardiovascular Report Gender: M Loc: 444W BP: Ordering Physician: Shruthi Malik Core Oven Tender: Rody Cross RDMS, RVT Interpreting Physician: Carina Call Location: [facility] Indications: Foot wounds. Originally ordered as a full PVR. Ordering TELEMETRY TECH had to modify the order to ABIs [...] in th (more content not included)... Normal [facility] VL LOWER EXTREMITY BILATERAL VENOUS DUPLEXon 10-21-2021 [facility] Lower Extremity Venous Duplex Report Patient DO GurpreetB: 1950 Study 10/21/2021 Name: Andrew Gonzalez (71yrs) Date: Age: 71 Account: [id number] Gender: M Loc: 444 BP: Ordering Physician: May Cash Core Oven Tender: Rody Cross RDMS, RVT Interpreting Physician: Carina [...] supine position. Images were obtained using a [employer] vascular ultrasound machine. Venous flow and imaging: [...] --------+ + (more content not included)... [facility] Carina Call MD - 10/21/2021 [facility] Lower Extremity Venous Duplex Report Patient Gurpreet, : 1950 Study 10/21/2021 Name: Andrew Gonzalez (71yr) Date: Age: 71 Account: [id number] Gender: M Loc: 444 BP: Ordering Physician: May Cash Core Oven Tender: Rody Cross RDMS, T Interpreting Physician: Carina Call [facility] [...] supine position. Images were obtained using a [employer] vascular ultrasound machine. Venous flow and imaging: [...] + + +----- (more content not included)... [employer] Work Phone: VL LOWER EXTREMITY BILATERAL VENOUS DUPLEXOrdered By: Carina Call on 10-21-2021 [employer] Phone: VL Venous Duplex US Lower Ex t Bilateralon 10-21-2021 VL Venous Duplex US Lower Ext Bilateral Patient Name: ANDREW SIFUENTES Ultrasound ACCESSION EXAM DATE/TIME PROCEDURE ORDERING PROVIDER [id number] 10/21/2021 09:53 EDT VL Venous Duplex US [id number] -MAY CASH Lower Ext Bilateral CPT code 48725 Reason For Exam (VL Venous Duplex US Lower Ext Bilateral) bilateral sqwelling redness Report [facility] Lower Extremity Venous Duplex Report Patient GurpreetRADHA: 1950 Study 10/21/2021 Name: Andrew Gonzalez (71yrs) Date: Age: 71 Account: [id number] Gender: M Loc: 444 BP: Ordering Physician: May Cash Core Oven Tender: Rody Cross RDMS, RVT Interpreting Physician: Carina [...] supine position. Images were obtained using a [employer] vascular ultrasound machine. Venous flow and imaging: [...] + + (more content not included)... Normal [facility] XR CALCANEUS LEFT (MIN 2 VIE WS)on 10-21-2021 Patient Name: ANDREW SIFUENTES Diagnostic Radiology ACCESSION EXAM DATE/TIME PROCEDURE ORDERING PROVIDER [id number] 10/21/2021 15:30 EDT CR Calcaneus 2+ Views [id number] -SHRUTHI MALIK Left CPT code 12655 Reason For Exam (CR Calcaneus 2+ Views [...] Date and Time: 10/21/2021 4:33 GUY [facility]ENDAR[facility] Alan Wong MD - 10/21/2021 [id number] Radiology ACCESSION EXAM DATE/TIME PROCEDURE ORDERING PROVIDER [id number] 10/21/2021 15:30 EDT CR Calcaneus 2+ Views [id number] -SHRUTHI MALIK Left CPT code 89569 Reason For Exam (CR Calcaneus 2+ Views [...] Radiology ACCESSION EXAM DATE/TIME PROCEDURE ORDERING PROVIDER [id number] 10/21/2021 08:16 EDT CR Chest 1 View Frontal [id number] MAY BOGGS CPT code 44525 Reason For Exam (CR Chest 1 View [...] Radiology ACCESSION EXAM DATE/TIME PROCEDURE ORDERING PROVIDER [id number] 10/21/2021 08:16 EDT CR Chest 1 View Frontal [id number] -MAY CASH CPT code 69372 Reason For Exam (CR Chest 1 View [...] Date and Time: 10/21/2021 8:33 [facility] Work Phone: XR Chest 1 VWOrdered By: Natalie Loyd on 10-21-2021 [facility] Work Phone: Basophil percentageon 06-16- 2022 Chloride [Moles/Vol] 108 mmol/L 98-[address] [facility] [address] [facility] Work Phone: Glucose [Mass/Vol] 93 mg/dL 74-106 [facility] Work Phone: Potassium [Moles/Vol] 3.9 mmol/L 3.5-5.1 [facility] Work Phone: Sodium [Moles/Vol] 140 mmol/L 136-145 [facility] Work Phone: WBC (Bld) [#/Vol] 8.7 10*3/uL 4.4-11.0 [facility] Work Phone: Blood erythrocytes count (nu mber/volume)on 10-20-2021 RBC (Bld) [#/Vol] 3.63 10*6/uL 4.6-6.2 [facility] Work [facility]: Blood hemoglobin measurement (mass/volume)on 10-20-2021 Hemoglobin (Bld) [Mass/Vol] 10.1 g/dL 13.0-16.5 [facility] Work Phone: Blood platelet mean volumeon 10-20-2021 Platelet mean volume (Bld) [Entitic vol] 9.8 fL 6.2-12.0 [facility] Work Phone: Determination of erythrocyte mean corpuscular volume (MCV)on 10-20-2021 MCV (RBC) [Entitic vol] 90.1 fL 80-94 [facility] Work Phone: Hematocrit Auto (Bld) [Volum e fraction]on 10-20-2021 Hematocrit (Bld) [Volume fraction] 32.7 % 40-54 [facility] Work Phone: Laboratory - Chemistry and C hemistry - challengeon 10-20-2021 CO2 [Moles/Vol] 25.0 mmol/L 21.0-32.0 [facility] Work Phone: [phone] Urea nitrogen/Creatinine [Mass ratio] 17.4 mg/mg 10-20 [facility] Work Phone: Laboratory - Hematology and Cell countson 10-20-2021 Erythrocyte distribution width (RBC) [Entitic vol] 52.1 fL 35.1-43.9 [facility] Work Phone: Erythrocyte distribution width (RBC) [Ratio] 15.6 % 11.6-14.6 [facility] Work Phone: MCH (RBC) [Entitic mass] 27.8 pg 27.0-32.0 [facility] Work Phone: MCHC Auto (RBC) [Mass/Vol]on 10-20-2021 MCHC (RBC) [Mass/Vol] 30.9 g/dL 32-36 [facility] Work Phone: No Panel Informationon 10-20 Estimated GFR (MDRD) Amer 133 mL/min >60 [facility] Work Phone: Comment on above: GFR Calc Estimated GFR (MDRD) Non-Af Amer 110 mL/min >60 [facility] Work Phone: Comment on above: Non- GFR Calc Platelets bldon 10-20-2021 Platelets (Bld) [#/Vol] 404 10*3/uL 150-450 [facility] Work Phone: Serum or plasma calcium oral urement (mass/volume)on 10-20-2021 Calcium [Mass/Vol] 9.1 mg/dL 8.5-10.1 [facility] Work Phone: Serum or plasma creatinine m easurement (mass/volume)on 10-20-2021 Creatinine [Mass/Vol] 0.75 mg/dL 0.70-1.30 [facility] Work Phone: Comment on above: The validity of the calculated GFR & GFRAA in patients over 70 years has not been determined. Clinical correlation is essential. Serum or plasma urea nitroge n measurement (mass/volume)on 10-20-2021 Urea nitrogen [Mass/Vol] 13 mg/dL 7-18 [facility] Work Phone: Thin prep Papanicolaou smear with manual screeningon 10-20-2021 Thin prep Papanicolaou smear with manual screening 7 5-15 [facility] Work Phone: CNPNon 10-17-2021 CNPN Normal [facility] Absolute lymphocyte counton 09-19-2021 Lymphocytes Auto (Unsp spec) [#/Vol] 1.74 10*3/uL 0.83-4.51 [facility] Work Phone: Basophil percentageon 2021 Basophils/100 WBC (Bld) 0.6 % 0-1 [facility] Work Phone: Bilirubin [Mass/Vol] 0.30 mg/dL 0.20-1.00 [facility] Work Phone: Comment on above: For patients on eltr ombopag therapy, use of Dimension [place] TBIL is not recommended. Chloride [Moles/Vol] 105 mmol/L 98-107 [facility] Work Phone: [phone] Eosinophils/100 WBC (Bld) 3.5 % 0-5 [facility] Work Phone: Glucose [Mass/Vol] 91 mg/dL 74-106 [facility] Work Phone: [phone] Neutrophils (Bld) [#/Vol] 4.2 10*3/uL 2.0-7.7 [facility] Work Phone: [phone] Neutrophils/100 WBC (Bld) 62.6 % 47-70 [facility] Work Phone: Potassium [Moles/Vol] 3.8 mmol/L 3.5-5.1 [facility] Work Phone: Protein [Mass/Vol] 6.3 g/dL 6.4-8.2 [facility] Work Phone: Sodium [Moles/Vol] 139 mmol/L 136-145 [facility] Work Phone: WBC (Bld) [#/Vol] 6.6 10*3/uL 4.4-11.0 [facility] Work Phone: Blood erythrocytes count (nu mber/volume)on 09-19-2021 RBC (Bld) [#/Vol] 3.47 10*6/uL 4.6-6.2 [facility] Work Phone: Blood hemoglobin measurement (mass/volume)on 09-19-2021 Hemoglobin (Bld) [Mass/Vol] 10.2 g/dL 13.0-16.5 [facility] Work Phone: Blood lymphocytes/100 leukoc yteson 09-19-2021 Lymphocytes/100 WBC (Bld) 26.2 % 19-41 [facility] Work Phone: Blood monocytes/100 leukocyt eson 09-19-2021 Monocytes/100 WBC (Bld) 6.5 % 0-10 [facility] Work Phone: Blood platelet mean volumeon 09-19-2021 Platelet mean volume (Bld) [Entitic vol] 9.6 fL 6.2-12.0 [facility] Work Phone: Determination of erythrocyte mean corpuscular volume (MCV)on 09-19-2021 MCV (RBC) [Entitic vol] 94.8 fL 80-94 [facility] Work Phone: Hematocrit Auto (Bld) [Volum e fraction]on 09-19-2021 Hematocrit (Bld) [Volume fraction] 32.9 % 40-54 [facility] Work Phone: Laboratory - Chemistry and C hemistry - challengeon 09-19-2021 ALP [Catalytic activity/Vol] 109 U/L 45-117 [facility] Work Phone: ALT [Catalytic activity/Vol] 23 U/L 16-61 [facility] Work Phone: CO2 [Moles/Vol] 26.0 mmol/L 21.0-32.0 [facility] Work Phone: Globulin (S) [Mass/Vol] 3.5 g/dL 2.2-4.2 [facility] Work Phone: Urea nitrogen/Creatinine [Mass ratio] 15.3 mg/mg 10-20 [facility] Work Phone: Laboratory - Hematology and Cell countson 09-19-2021 Erythrocyte distribution width (RBC) [Entitic vol] 59.4 fL 35.1-43.9 [facility] Work Phone: Erythrocyte distribution width (RBC) [Ratio] 17.1 % 11.6-14.6 [facility] Work Phone: Immature granulocytes/100 WBC (Bld) 0.600 % 0.0-0.9 [facility] Work Phone: Comment on above: IG% - Immature Granu locytes (promyelocytes, myelocytes and metamyelocytes) > 1% indicates that a LEFT SHIFT is Present. MCH (RBC) [Entitic mass] 29.4 pg 27.0-32.0 [facility] Work Phone: Nucleated RBC/100 WBC (Bld) [Ratio] 0 % 0-5 [facility] Work Phone: MCHC Auto (RBC) [Mass/Vol]on 09-19-2021 MCHC (RBC) [Mass/Vol] 31.0 g/dL 32-36 [facility] Work Phone: No Panel Informationon 09-19 Estimated GFR (MDRD) Amer 175 mL/min >60 [facility] Work Phone: Comment on above: GFR Calc Estimated GFR (MDRD) Non-Af Amer 145 mL/min >60 [facility] Work Phone: Comment on above: Non- GFR Calc Platelets bldon 09-19-2021 Platelets (Bld) [#/Vol] 342 10*3/uL 150-450 [facility] Work Phone: Serum or plasma albumin oral urement (mass/volume)on 09-19-2021 Albumin [Mass/Vol] 2.8 g/dL 3.2-5.0 [facility] Work Phone: Serum or plasma albumin/glob ulin mass ratioon 09-19-2021 Albumin/Globulin [Mass ratio] 0.8 {ratio} 0.9-2.4 [facility] Work Phone: Serum or plasma calcium oral urement (mass/volume)on 09-19-2021 Calcium [Mass/Vol] 9.0 mg/dL 8.5-10.1 [facility] Work Phone: Serum or plasma creatinine m easurement (mass/volume)on 09-19-2021 Creatinine [Mass/Vol] 0.59 mg/dL 0.70-1.30 [facility] Work Phone: Comment on above: The validity of the calculated GFR & GFRAA in patients over 70 years has not been determined. Clinical correlation is essential. Serum or plasma urea nitroge n measurement (mass/volume)on 09-19-2021 Urea nitrogen [Mass/Vol] 9 mg/dL 7-18 [facility] Work Phone: Thin prep Papanicolaou smear with manual screeningon 09-19-2021 Thin prep Papanicolaou smear with manual screening 12 U/L 15-37 [facility] Work Phone: Thin prep Papanicolaou smear with manual screening 8 5-15 [facility] Work Phone: OPERATIVE NOon 08-22-2021 OPERATIVE NO Normal [facility] Basic metabolic 2000 panelon 08-19-2021 Anion gap [Moles/Vol] 10 mmol/L Normal 9-18 [facility] Comment on above: Order Comment: Speci men Type: BLOOD SPECIMENOrdering Facility: [facility] Address: [address] [place] [address] Performed By: #### 2 4321-2 ####[facility] LABORATORYCLIA [id number] [place] [address] [place] Calcium [Mass/Vol] 8.6 mg/dL Normal 8.5-10.2 [facility] Comment on above: Order Comment: Speci men Type: BLOOD SPECIMENOrdering Facility: [facility] Address: [address] [address] Performed By: #### 2 4321-2 ####[facility] LABORATORYCLIA [id number] [place] [address] [place] Chloride [Moles/Vol] 99 mmol/L Normal 97-105 [facility] Comment on above: Order Comment: Speci men Type: BLOOD SPECIMENOrdering Facility: [facility] Address: [address] [place] [address] Performed By: #### 2 4321-2 ####[facility] LABORATORYCLIA [id number] [place] [address] [place] CO2 [Moles/Vol] 29 mmol/L Normal 22-30 [facility] Comment on above: Order Comment: Speci men Type: BLOOD SPECIMENOrdering Facility: [facility] Address: [address] [place] [address] Performed By: #### 2 4321-2 ####[facility] LABORATORYCLIA [id number] [address] STATES OF [facility] Creatinine [Mass/Vol] 0.58 mg/dL Low 0.73-1.22 [facility] Comment on above: Order Comment: Speci men Type: BLOOD SPECIMENOrdering Facility: [facility] Address: [address] [place] [address] Performed By: #### 2 4321-2 ####[facility] LABORATORYCLIA [id number] [address] ESTIMATED GLOMERULAR FILTRATION RATE 106 mL/min/1.73m??? Normal >=60 [facility] Comment on above: Order Comment: Speci men Type: BLOOD SPECIMENOrdering Facility: [facility] Address: [address] [place] [address] Result Comment: Luzmaria mated Glomerular Filtration Rate [...] By: #### 2 4321-2 ####[facility] LABORATORYCLIA [id number] [place] [address] [place] Glucose [Mass/Vol] 101 mg/dL High 74-99 [facility] Comment on above: Order Comment: Shira feldman Type: BLOOD SPECIMENOrdering Facility: [facility] Address: [address] [place] [address] Result Comment: The [place] Diabetes Association (ADA) provides guidance for cutoff [...] Standards of Medical Care in Diabetes 2016, [place] Diabetes Association. Diabetes Care. 2016.39(Suppl 1). Performed By: #### 2 4321-2 ####[facility] LABORATORYCLIA [id number] [place] [address] [place] Potassium [Moles/Vol] 3.5 mmol/L Low 3.7-5.1 [facility] Comment on above: Order Comment: Shira feldman Type: BLOOD SPECIMENOrdering Facility: [facility] Address: [address] [address] Performed By: #### 2 4321-2 ####[facility] LABORATORYCLIA [id number] [place] [address] [place] Sodium [Moles/Vol] 138 mmol/L Normal 136-144 [facility] Comment on above: Order Comment: Shira efldman Type: BLOOD SPECIMENOrdering Facility: [facility] Address: [address] [address] Performed By: #### 2 4321-2 ####[facility] LABORATORYCLIA [id number] [address] [place] Urea nitrogen [Mass/Vol] 11 mg/dL Normal 9-24 [facility] Comment on above: Order Comment: Speci men Type: BLOOD SPECIMENOrdering Facility: [facility] Address: [address] [place] [address] Performed By: #### 2 4321-2 ####[facility] LABORATORYCLIA [id number] [address] [place] CASE MANAGEMon 08-19-2021 CASE MANAGEM Normal [facility] CBC W Auto Differential pane l (Bld)on 08-19-2021 Basophils (Bld) [#/Vol] 0.03 10*3/uL Normal <0.11 [facility] Comment on above: Order Comment: Speci men Type: BLOOD SPECIMENOrdering Facility: [facility] Address: [address] [place] [address] Performed By: #### 5 7021-8 ####[facility] LABORATORYCLIA [id number] [address] [place] Basophils/100 WBC (Bld) 0.4 % Normal [facility] Comment on above: Order Comment: Speci men Type: BLOOD SPECIMENOrdering Facility: [facility] Address: [address] [place] [address] Performed By: #### 5 7021-8 ####[facility] LABORATORYCLIA [id number] [address] [place] Differential cell count method Nom (Bld) Auto Normal [facility] Comment on above: Order Comment: Speci men Type: BLOOD SPECIMENOrdering Facility: [facility] Address: [address] [place] [address] Performed By: #### 5 7021-8 ####[facility] LABORATORYCLIA [id number] [place] [address] [place] Eosinophils (Bld) [#/Vol] 0.24 10*3/uL Normal <0.46 [facility] Comment on above: Order Comment: Speci men Type: BLOOD SPECIMENOrdering Facility: [facility] Address: [address] [place] [address] Performed By: #### 5 7021-8 ####[facility] LABORATORYCLIA [id number] [address] [place] Eosinophils/100 WBC (Bld) 3.1 % Normal [facility] Comment on above: Order Comment: Speci men Type: BLOOD SPECIMENOrdering Facility: [facility] Address: [address] [place] [address] Performed By: #### 5 7021-8 ####[facility] LABORATORYCLIA [id number] [address] Erythrocyte distribution width (RBC) [Ratio] 17.5 % High 11.5-15.0 [facility] Comment on above: Order Comment: Speci men Type: BLOOD SPECIMENOrdering Facility: [facility] Address: [address] [place] [address] Performed By: #### 5 7021-8 ####[facility] LABORATORYCLIA [id number] [address] [place] Hematocrit (Bld) [Volume fraction] 30.2 % Low 39.0-51.0 [facility] Comment on above: Order Comment: Speci men Type: BLOOD SPECIMENOrdering Facility: [facility] Address: [address] [place] [address] Performed By: #### 5 7021-8 ####[facility] LABORATORYCLIA [id number] [address] [place] Hemoglobin (Bld) [Mass/Vol] 9.6 g/dL Low 13.0-17.0 [facility] Comment on above: Order Comment: Speci men Type: BLOOD SPECIMENOrdering Facility: [facility] Address: [address] [place] [address] Performed By: #### 5 7021-8 ####[facility] LABORATORYCLIA [id number] IMMATURE GRAN % 0.4 % Normal [facility] Comment on above: Order Comment: Speci men Type: BLOOD SPECIMENOrdering Facility: [facility] Address: [address] [place] [address] Performed By: #### 5 7021-8 ####[facility] LABORATORYCLIA [id number] [address] IMMATURE GRAN ABS 0.03 k/uL Normal <0.10 [facility] Comment on above: Order Comment: Speci men Type: BLOOD SPECIMENOrdering Facility: [facility] Address: [address] [place] [address] Performed By: #### 5 7021-8 ####[facility] LABORATORYCLIA [id number] [address] Lymphocytes (Bld) [#/Vol] 1.71 10*3/uL Normal 1.00-4.00 [facility] Comment on above: Order Comment: Speci men Type: BLOOD SPECIMENOrdering Facility: [facility] Address: [address] [place] [address] Performed By: #### 5 7021-8 ####[facility] LABORATORYCLIA [id number] [address] Lymphocytes/100 WBC (Bld) 22.2 % Normal [facility] Comment on above: Order Comment: Speci men Type: BLOOD SPECIMENOrdering Facility: [facility] Address: [address] [place] [address] Performed By: #### 5 7021-8 ####[facility] LABORATORYCLIA [id number] [address] [place] MCH (RBC) [Entitic mass] 29.4 pg Normal 26.0-34.0 [facility] Comment on above: Order Comment: Speci men Type: BLOOD SPECIMENOrdering Facility: [facility] Address: [address] [place] [address] Performed By: #### 5 7021-8 ####[facility] LABORATORYCLIA [id number] [address] STATES OF [facility] MCHC (RBC) [Mass/Vol] 31.8 g/dL Normal 30.5-36.0 [facility] Comment on above: Order Comment: Speci men Type: BLOOD SPECIMENOrdering Facility: [facility] Address: [address] [place] [address] Performed By: #### 5 7021-8 ####[facility] LABORATORYCLIA [id number] [address] MCV (RBC) [Entitic vol] 92.6 fL Normal 80.0-100.0 [facility] Comment on above: Order Comment: Speci men Type: BLOOD SPECIMENOrdering Facility: [facility] Address: [address] [place] [address] Performed By: #### 5 7021-8 ####[facility] LABORATORYCLIA [id number] [address] [place] Monocytes (Bld) [#/Vol] 0.50 10*3/uL Normal <0.87 [facility] Comment on above: Order Comment: Speci men Type: BLOOD SPECIMENOrdering Facility: [facility] Address: [address] [place] [address] Performed By: #### 5 7021-8 ####[facility] LABORATORYCLIA [id number] [address] Monocytes/100 WBC (Bld) 6.5 % Normal [facility] Comment on above: Order Comment: Speci men Type: BLOOD SPECIMENOrdering Facility: [facility] Address: [address] [place] [address] Performed By: #### 5 7021-8 ####[facility] LABORATORYCLIA [id number] [address] [place] Neutrophils (Bld) [#/Vol] 5.20 10*3/uL Normal 1.45-7.50 [facility] Comment on above: Order Comment: Speci men Type: BLOOD SPECIMENOrdering Facility: [facility] Address: [address] [place] [address] Performed By: #### 5 7021-8 ####[facility] LABORATORYCLIA [id number] [address] Neutrophils/100 WBC (Bld) 67.4 % Normal [facility] Comment on above: Order Comment: Speci men Type: BLOOD SPECIMENOrdering Facility: [facility] Address: [address] [place] [address] Performed By: #### 5 7021-8 ####[facility] LABORATORYCLIA [id number] [address] Nucleated RBC (Bld) [#/Vol] 10*3/uL Normal <0.01 [facility] Comment on above: Order Comment: Speci men Type: BLOOD SPECIMENOrdering Facility: [facility] Address: [address] [place] [address] Performed By: #### 5 7021-8 ####[facility] LABORATORYCLIA [id number] [address] Nucleated RBC/100 WBC (Bld) [Ratio] 0.0 /100 WBC Normal [facility] Comment on above: Order Comment: Speci men Type: BLOOD SPECIMENOrdering Facility: [facility] Address: [address] [place] [address] Performed By: #### 5 7021-8 ####[facility] LABORATORYCLIA [id number] [address] [place] Platelet mean volume (Bld) [Entitic vol] 8.9 fL Low 9.0-12.7 [facility] Comment on above: Order Comment: Speci men Type: BLOOD SPECIMENOrdering Facility: [facility] Address: [address] [place] [address] Performed By: #### 5 7021-8 ####[facility] LABORATORYCLIA [id number] [address] [place] Platelets (Bld) [#/Vol] 408 10*3/uL High 150-400 [facility] Comment on above: Order Comment: Speci men Type: BLOOD SPECIMENOrdering Facility: [facility] Address: [address] [place] [address] Performed By: #### 5 7021-8 ####[facility] LABORATORYCLIA [id number] [place] [address] [place] RBC (Bld) [#/Vol] 3.26 10*6/uL Low 4.20-6.00 [facility] Comment on above: Order Comment: Speci men Type: BLOOD SPECIMENOrdering Facility: [facility] Address: [address] [place] [address] Performed By: #### 5 7021-8 ####[facility] LABORATORYCLIA [id number] [address] [place] WBC (Bld) [#/Vol] 7.71 10*3/uL Normal 3.70-11.00 [facility] Comment on above: Order Comment: Speci men Type: BLOOD SPECIMENOrdering Facility: [facility] Address: [address] [place] [address] Performed By: #### 5 7021-8 ####[facility] LABORATORYCLIA [id number] [address] [place] CNDSon 08-19-2021 CNDS Normal [facility] CONSULT PROGon 08-19-2021 CONSULT PROG Normal [facility] THERAPY NTon 08-19-2021 THERAPY NT Normal [facility] Basic metabolic 2000 panelon 08-18-2021 Anion gap [Moles/Vol] 11 mmol/L Normal 9-18 [facility] Comment on above: Order Comment: Speci men Type: BLOOD SPECIMENOrdering Facility: [facility] Address: [address] [place] [address] Performed By: #### 2 4321-2 ####[facility] LABORATORYCLIA [id number] [address] [place] Calcium [Mass/Vol] 8.6 mg/dL Normal 8.5-10.2 [facility] Comment on above: Order Comment: Speci men Type: BLOOD SPECIMENOrdering Facility: [facility] Address: [address] [place] [address] Performed By: #### 2 4321-2 ####[facility] LABORATORYCLIA [id number] [place] [address] [place] Chloride [Moles/Vol] 98 mmol/L Normal 97-105 [facility] Comment on above: Order Comment: Speci men Type: BLOOD SPECIMENOrdering Facility: [facility] Address: [address] [place] [address] Performed By: #### 2 4321-2 ####[facility] LABORATORYCLIA [id number] [place] [address] [place] CO2 [Moles/Vol] 28 mmol/L Normal 22-30 [facility] Comment on above: Order Comment: Speci men Type: BLOOD SPECIMENOrdering Facility: [facility] Address: [address] [place] [address] Performed By: #### 2 4321-2 ####[facility] LABORATORYCLIA [id number] [address] [place] Creatinine [Mass/Vol] 0.56 mg/dL Low 0.73-1.22 [facility] Comment on above: Order Comment: Speci men Type: BLOOD SPECIMENOrdering Facility: [facility] Address: [address] [place] [address] Performed By: #### 2 4321-2 ####[facility] LABORATORYCLIA [id number] [address] OF [facility] ESTIMATED GLOMERULAR FILTRATION RATE 107 mL/min/1.73m??? Normal >=60 [facility] Comment on above: Order Comment: Speci men Type: BLOOD SPECIMENOrdering Facility: [facility] Address: [address] [place] [address] Result Comment: Luzmaria mated Glomerular Filtration Rate [...] By: #### 2 4321-2 ####[facility] LABORATORYCLIA [id number] [place] [address] [place] Glucose [Mass/Vol] 113 mg/dL High 74-99 [facility] Comment on above: Order Comment: Speci men Type: BLOOD SPECIMENOrdering Facility: [facility] Address: [address] [place] [address] Result Comment: The [place] Diabetes Association (ADA) provides guidance for cutoff [...] Standards of Medical Care in Diabetes 2016, [place] Diabetes Association. Diabetes Care. 2016.39(Suppl 1). Performed By: #### 2 4321-2 ####[facility] LABORATORYCLIA [id number] [place] [address] [place] Potassium [Moles/Vol] 3.5 mmol/L Low 3.7-5.1 [facility] Comment on above: Order Comment: Speci men Type: BLOOD SPECIMENOrdering Facility: [facility] Address: [address] [place], [place] [address] Performed By: #### 2 4321-2 ####[facility] LABORATORYCLIA [id number] [place] [address] [place] Sodium [Moles/Vol] 137 mmol/L Normal 136-144 [facility] Comment on above: Order Comment: Speci men Type: BLOOD SPECIMENOrdering Facility: [facility] Address: [address] [place] [address] Performed By: #### 2 4321-2 ####[facility] LABORATORYCLIA [id number] [address] STATES [facility] Urea nitrogen [Mass/Vol] 10 mg/dL Normal 9-24 [facility] Comment on above: Order Comment: Speci men Type: BLOOD SPECIMENOrdering Facility: [facility] Address: [address] [place] [address] Performed By: #### 2 4321-2 ####[facility] LABORATORYCLIA [id number] [address] CBC W Auto Differential pane l (Bld)on 08-18-2021 Basophils (Bld) [#/Vol] 10*3/uL Normal <0.11 [facility] Comment on above: Order Comment: Speci men Type: BLOOD SPECIMENOrdering Facility: [facility] Address: [address] [place] [address] Performed By: #### 5 7021-8 ####[facility] LABORATORYCLIA [id number] [address] Basophils/100 WBC (Bld) 0.3 % Normal [facility] Comment on above: Order Comment: Speci men Type: BLOOD SPECIMENOrdering Facility: [facility] Address: [address] [place] [address] Performed By: #### 5 7021-8 ####[facility] LABORATORYCLIA [id number] [address] Differential cell count method Nom (Bld) Auto Normal [facility] Comment on above: Order Comment: Speci men Type: BLOOD SPECIMENOrdering Facility: [facility] Address: [address] [place] [address] Performed By: #### 5 7021-8 ####[facility] LABORATORYCLIA [id number] [place] [address] [place] Eosinophils (Bld) [#/Vol] 0.37 10*3/uL Normal <0.46 [facility] Comment on above: Order Comment: Speci men Type: BLOOD SPECIMENOrdering Facility: [facility] Address: [address] [place] [address] Performed By: #### 5 7021-8 ####[facility] LABORATORYCLIA [id number] [address] Eosinophils/100 WBC (Bld) 4.8 % Normal [facility] Comment on above: Order Comment: Speci men Type: BLOOD SPECIMENOrdering Facility: [facility] Address: [address] [place] [address] Performed By: #### 5 7021-8 ####[facility] LABORATORYCLIA [id number] [address] Erythrocyte distribution width (RBC) [Ratio] 17.5 % High 11.5-15.0 [facility] Comment on above: Order Comment: Speci men Type: BLOOD SPECIMENOrdering Facility: [facility] Address: [address] [place] [address] Performed By: #### 5 7021-8 ####[facility] LABORATORYCLIA [id number] [address] Hematocrit (Bld) [Volume fraction] 30.2 % Low 39.0-51.0 [facility] Comment on above: Order Comment: Speci men Type: BLOOD SPECIMENOrdering Facility: [facility] Address: [address] [place] [address] Performed By: #### 5 7021-8 ####[facility] LABORATORYCLIA [id number] [address] [place] Hemoglobin (Bld) [Mass/Vol] 9.5 g/dL Low 13.0-17.0 [facility] Comment on above: Order Comment: Speci men Type: BLOOD SPECIMENOrdering Facility: [facility] Address: [address] [place] [address] Performed By: #### 5 7021-8 ####[facility]ORATORYCLIA [id number] [address] IMMATURE GRAN % 0.4 % Normal [facility] Comment on above: Order Comment: Speci men Type: BLOOD SPECIMENOrdering Facility: [facility] Address: [address] [place] [address] Performed By: #### 5 7021-8 ####[facility]ORATORYCLIA [id number] [address] IMMATURE GRAN ABS 0.03 k/uL Normal <0.10 [facility] Comment on above: Order Comment: Speci men Type: BLOOD SPECIMENOrdering Facility: [facility] Address: [address] [place] [address] Performed By: #### 5 7021-8 ####[facility] LABORATORYCLIA [id number] [address] Lymphocytes (Bld) [#/Vol] 1.85 10*3/uL Normal 1.00-4.00 [facility] Comment on above: Order Comment: Speci men Type: BLOOD SPECIMENOrdering Facility: [facility] Address: [address] [place] [address] Performed By: #### 5 7021-8 ####[facility]ORATORYCLIA [id number] [address] Lymphocytes/100 WBC (Bld) 23.8 % Normal [facility] Comment on above: Order Comment: Speci men Type: BLOOD SPECIMENOrdering Facility: [facility] Address: [address] [place] [address] Performed By: #### 5 7021-8 ####[facility]ORATORYCLIA [id number] [address] STATES [facility] MCH (RBC) [Entitic mass] 29.5 pg Normal 26.0-34.0 [facility] Comment on above: Order Comment: Speci men Type: BLOOD SPECIMENOrdering Facility: [facility] Address: [address] [address] Performed By: #### 5 7021-8 ####[facility] LABORATORYCLIA [id number] [address] STATES [facility] MCHC (RBC) [Mass/Vol] 31.5 g/dL Normal 30.5-36.0 [facility] Comment on above: Order Comment: Speci men Type: BLOOD SPECIMENOrdering Facility: [facility] Address: [address] [place] [address] Performed By: #### 5 7021-8 ####[facility] LABORATORYCLIA [id number] [address] STATES OF [facility] MCV (RBC) [Entitic vol] 93.8 fL Normal 80.0-100.0 [facility] Comment on above: Order Comment: Speci men Type: BLOOD SPECIMENOrdering Facility: [facility] Address: [address] [place] [address] Performed By: #### 5 7021-8 ####[facility] LABORATORYCLIA [id number] [address] OF [facility] Monocytes (Bld) [#/Vol] 0.49 10*3/uL Normal <0.87 [facility] Comment on above: Order Comment: Speci men Type: BLOOD SPECIMENOrdering Facility: [facility] Address: [address] [place] [address] Performed By: #### 5 7021-8 ####[facility] LABORATORYCLIA [id number] [address] Monocytes/100 WBC (Bld) 6.3 % Normal [facility] Comment on above: Order Comment: Speci men Type: BLOOD SPECIMENOrdering Facility: [facility] Address: [address] [place] [address] Performed By: #### 5 7021-8 ####[facility] LABORATORYCLIA [id number] [address] [place] Neutrophils (Bld) [#/Vol] 5.00 10*3/uL Normal 1.45-7.50 [facility] Comment on above: Order Comment: Speci men Type: BLOOD SPECIMENOrdering Facility: [facility] Address: [address] [place] [address] Performed By: #### 5 7021-8 ####[facility] LABORATORYCLIA [id number] [address] Neutrophils/100 WBC (Bld) 64.4 % Normal [facility] Comment on above: Order Comment: Speci men Type: BLOOD SPECIMENOrdering Facility: [facility] Address: [address] [place] [address] Performed By: #### 5 7021-8 ####[facility] LABORATORYCLIA [id number] [address] [place] Nucleated RBC (Bld) [#/Vol] 10*3/uL Normal <0.01 [facility] Comment on above: Order Comment: Speci men Type: BLOOD SPECIMENOrdering Facility: [facility] Address: [address] [place] [address] Performed By: #### 5 7021-8 ####[facility] LABORATORYCLIA [id number] [address] Nucleated RBC/100 WBC (Bld) [Ratio] 0.0 /100 WBC Normal [facility] Comment on above: Order Comment: Speci men Type: BLOOD SPECIMENOrdering Facility: [facility] Address: [address] [place] [address] Performed By: #### 5 7021-8 ####[facility] LABORATORYCLIA [id number] [address] [place] Platelet mean volume (Bld) [Entitic vol] 9.1 fL Normal 9.0-12.7 [facility] Comment on above: Order Comment: Speci men Type: BLOOD SPECIMENOrdering Facility: [facility] Address: [address] [place] [address] Performed By: #### 5 7021-8 ####[facility]ORATORYCLIA [id number] [place] [address] [place] Platelets (Bld) [#/Vol] 391 10*3/uL Normal 150-400 [facility] Comment on above: Order Comment: Speci men Type: BLOOD SPECIMENOrdering Facility: [facility] Address: [address] [place] [address] Performed By: #### 5 7021-8 ####[facility] LABORATORYCLIA [id number] [place] [address] [place] RBC (Bld) [#/Vol] 3.22 10*6/uL Low 4.20-6.00 [facility] Comment on above: Order Comment: Speci men Type: BLOOD SPECIMENOrdering Facility: [facility] Address: [address] [place] [address] Performed By: #### 5 7021-8 ####[facility] LABORATORYCLIA [id number] [address] STATES [facility] WBC (Bld) [#/Vol] 7.76 10*3/uL Normal 3.70-11.00 [facility] Comment on above: Order Comment: Speci men Type: BLOOD SPECIMENOrdering Facility: [facility] Address: [address] [place] [address] Performed By: #### 5 7021-8 ####[facility] LABORATORYCLIA [id number] [address] [place] CONSULT PROGon 08-18-2021 CONSULT PROG Normal [facility] CASE MANAGEMon 08-17-2021 CASE MANAGEM Normal [facility] CBC W Auto Differential pane l (Bld)on 08-17-2021 Basophils (Bld) [#/Vol] 0.04 10*3/uL Normal <0.11 [facility] Comment on above: Order Comment: Speci men Type: BLOOD SPECIMENOrdering Facility: [facility] Address: [address] [place] [address] Performed By: #### 5 7021-8 ####[facility] LABORATORYCLIA [id number] [address] [place] Basophils/100 WBC (Bld) 0.5 % Normal [facility] Comment on above: Order Comment: Speci men Type: BLOOD SPECIMENOrdering Facility: [facility] Address: [address] [place] [address] Performed By: #### 5 7021-8 ####[facility] LABORATORYCLIA [id number] [address] [place] Differential cell count method Nom (Bld) Auto Normal [facility] Comment on above: Order Comment: Speci men Type: BLOOD SPECIMENOrdering Facility: [facility] Address: [address] [place] [address] Performed By: #### 5 7021-8 ####[facility] LABORATORYCLIA [id number] [address] [place] Eosinophils (Bld) [#/Vol] 0.31 10*3/uL Normal <0.46 [facility] Comment on above: Order Comment: Speci men Type: BLOOD SPECIMENOrdering Facility: [facility] Address: [address] [place] [address] Performed By: #### 5 7021-8 ####[facility] LABORATORYCLIA [id number] [address] [place] Eosinophils/100 WBC (Bld) 3.7 % Normal [facility] Comment on above: Order Comment: Speci men Type: BLOOD SPECIMENOrdering Facility: [facility] Address: [address] [place] [address] Performed By: #### 5 7021-8 ####[facility] LABORATORYCLIA [id number] [address] [place] Erythrocyte distribution width (RBC) [Ratio] 17.4 % High 11.5-15.0 [facility] Comment on above: Order Comment: Speci men Type: BLOOD SPECIMENOrdering Facility: [facility] Address: [address] [place] [address] Performed By: #### 5 7021-8 ####[facility] LABORATORYCLIA [id number] [address] OF [facility] Hematocrit (Bld) [Volume fraction] 30.6 % Low 39.0-51.0 [facility] Comment on above: Order Comment: Speci men Type: BLOOD SPECIMENOrdering Facility: [facility] Address: [address] [place] [address] Performed By: #### 5 7021-8 ####[facility] LABORATORYCLIA [id number] [address] Hemoglobin (Bld) [Mass/Vol] 9.6 g/dL Low 13.0-17.0 [facility] Comment on above: Order Comment: Speci men Type: BLOOD SPECIMENOrdering Facility: [facility] Address: [address] [place] [address] Performed By: #### 5 7021-8 ####[facility] LABORATORYCLIA [id number] [address] IMMATURE GRAN % 0.2 % Normal [facility] Comment on above: Order Comment: Speci men Type: BLOOD SPECIMENOrdering Facility: [facility] Address: [address] [place] [address] Performed By: #### 5 7021-8 ####[facility] LABORATORYCLIA [id number] [address] IMMATURE GRAN ABS <0.03 Normal <0.10 [facility] Comment on above: Order Comment: Speci men Type: BLOOD SPECIMENOrdering Facility: [facility] Address: [address] [place] [address] Performed By: #### 5 7021-8 ####[facility] LABORATORYCLIA [id number] [address] Lymphocytes (Bld) [#/Vol] 1.66 10*3/uL Normal 1.00-4.00 [facility] Comment on above: Order Comment: Speci men Type: BLOOD SPECIMENOrdering Facility: [facility] Address: [address] [place] [address] Performed By: #### 5 7021-8 ####[facility] LABORATORYCLIA [id number] [address] Lymphocytes/100 WBC (Bld) 19.9 % Normal [facility] Comment on above: Order Comment: Speci men Type: BLOOD SPECIMENOrdering Facility: [facility] Address: [address] [place] [address] Performed By: #### 5 7021-8 ####[facility] LABORATORYCLIA [id number] [address] MCH (RBC) [Entitic mass] 28.9 pg Normal 26.0-34.0 [facility] Comment on above: Order Comment: Speci men Type: BLOOD SPECIMENOrdering Facility: [facility] Address: [address] [place] [address] Performed By: #### 5 7021-8 ####[facility] LABORATORYCLIA [id number] [address] MCHC (RBC) [Mass/Vol] 31.4 g/dL Normal 30.5-36.0 [facility] Comment on above: Order Comment: Speci men Type: BLOOD SPECIMENOrdering Facility: [facility] Address: [address] [place] [address] Performed By: #### 5 7021-8 ####[facility] LABORATORYCLIA [id number] [address] MCV (RBC) [Entitic vol] 92.2 fL Normal 80.0-100.0 [facility] Comment on above: Order Comment: Speci men Type: BLOOD SPECIMENOrdering Facility: [facility] Address: [address] [place] [address] Performed By: #### 5 7021-8 ####[facility] LABORATORYCLIA [id number] [address] Monocytes (Bld) [#/Vol] 0.52 10*3/uL Normal <0.87 [facility] Comment on above: Order Comment: Speci men Type: BLOOD SPECIMENOrdering Facility: [facility] Address: [address] [place] [address] Performed By: #### 5 7021-8 ####[facility] LABORATORYCLIA [id number] [address] [place] Monocytes/100 WBC (Bld) 6.2 % Normal [facility] Comment on above: Order Comment: Speci men Type: BLOOD SPECIMENOrdering Facility: [facility] Address: [address] [place] [address] Performed By: #### 5 7021-8 ####[facility] LABORATORYCLIA [id number] [address] [place] Neutrophils (Bld) [#/Vol] 5.78 10*3/uL Normal 1.45-7.50 [facility] Comment on above: Order Comment: Speci men Type: BLOOD SPECIMENOrdering Facility: [facility] Address: [address] [place] [address] Performed By: #### 5 7021-8 ####[facility] LABORATORYCLIA [id number] [address] [place] Neutrophils/100 WBC (Bld) 69.5 % Normal [facility] Comment on above: Order Comment: Speci men Type: BLOOD SPECIMENOrdering Facility: [facility] Address: [address] [place] [address] Performed By: #### 5 7021-8 ####[facility] LABORATORYCLIA [id number] [place] [address] [place] Nucleated RBC (Bld) [#/Vol] 10*3/uL Normal <0.01 [facility] Comment on above: Order Comment: Speci men Type: BLOOD SPECIMENOrdering Facility: [facility] Address: [address] [place] [address] Performed By: #### 5 7021-8 ####[facility]ORATORYCLIA [id number] [place] [address] [place] Nucleated RBC/100 WBC (Bld) [Ratio] 0.0 /100 WBC Normal [facility] Comment on above: Order Comment: Speci men Type: BLOOD SPECIMENOrdering Facility: [facility] Address: [address] [place] [address] Performed By: #### 5 7021-8 ####[facility] LABORATORYCLIA [id number] [place] [address] [place] Platelet mean volume (Bld) [Entitic vol] 9.2 fL Normal 9.0-12.7 [facility] Comment on above: Order Comment: Speci men Type: BLOOD SPECIMENOrdering Facility: [facility] Address: [address] [place] [address] Performed By: #### 5 7021-8 ####[facility] LABORATORYCLIA [id number] [address] [place] Platelets (Bld) [#/Vol] 379 10*3/uL Normal 150-400 [facility] Comment on above: Order Comment: Speci men Type: BLOOD SPECIMENOrdering Facility: [facility] Address: [address] [place] [address] Performed By: #### 5 7021-8 ####[facility] LABORATORYCLIA [id number] [place] [address] [place] RBC (Bld) [#/Vol] 3.32 10*6/uL Low 4.20-6.00 [facility] Comment on above: Order Comment: Speci men Type: BLOOD SPECIMENOrdering Facility: [facility] Address: [address] [place] [address] Performed By: #### 5 7021-8 ####[facility] LABORATORYCLIA [id number] [place] [address] [place] WBC (Bld) [#/Vol] 8.33 10*3/uL Normal 3.70-11.00 [facility] Comment on above: Order Comment: Speci men Type: BLOOD SPECIMENOrdering Facility: [facility] Address: [address] [place] [address] Performed By: #### 5 7021-8 ####[facility] LABORATORYCLIA [id number] [place] [address] [place] CONSULT PROGon 08-17-2021 CONSULT PROG Normal [facility] NUTRITIONon 08-17-2021 NUTRITION Normal [facility] Basic metabolic 2000 panelon 08-16-2021 Anion gap [Moles/Vol] 14 mmol/L Normal 9-18 [facility] Comment on above: Order Comment: Speci men Type: BLOOD SPECIMENOrdering Facility: [facility] Address: [address] [place] [address] Performed By: #### 2 4321-2, ####[facility] LABORATORYCLIA [id number] [place] [address] [place] Calcium [Mass/Vol] 8.8 mg/dL Normal 8.5-10.2 [facility] Comment on above: Order Comment: Speci men Type: BLOOD SPECIMENOrdering Facility: [facility] Address: [address] [place] [address] Performed By: #### 2 4321-2, ####[facility] LABORATORYCLIA [id number] [place] [address] [place] Chloride [Moles/Vol] 97 mmol/L Normal 97-105 [facility] Comment on above: Order Comment: Speci men Type: BLOOD SPECIMENOrdering Facility: [facility] Address: [address] [place] [address] Performed By: #### 2 4321-2, ####[facility] LABORATORYCLIA [id number] [place] [address] [place] CO2 [Moles/Vol] 27 mmol/L Normal 22-30 [facility] Comment on above: Order Comment: Speci men Type: BLOOD SPECIMENOrdering Facility: [facility] Address: [address] [place] [address] Performed By: #### 2 4321-2, ####[facility] LABORATORYCLIA [id number] [place] [address] [place] Creatinine [Mass/Vol] 0.50 mg/dL Low 0.73-1.22 [facility] Comment on above: Order Comment: Speccara feldman Type: BLOOD SPECIMENOrdering Facility: [facility] Address: [address] [place], [place] [address] Performed By: #### 2 432-2, ####[facility] LABORATORYCLIA [id number] [place] [address] [place] ESTIMATED GLOMERULAR FILTRATION RATE 110 mL/min/1.73m??? Normal >=60 [facility] Comment on above: Order Comment: Shira feldman Type: BLOOD SPECIMENOrdering Facility: [facility] Address: [address] [place] [address] Result Comment: Luzmaria mated Glomerular Filtration Rate [...] actual GFR. Performed By: #### 2 4321-2, 12404-9 ####[facility] LABORATORYCLIA [id number] [place] [address] [place] Glucose [Mass/Vol] 101 mg/dL High 74-99 [facility] Comment on above: Order Comment: Shira francia Type: BLOOD SPECIMENOrdering Facility: [facility] Address: [address] [place] [address] Result Comment: The [place] Diabetes Association (ADA) provides guidance for cutoff [...] Standards of Medical Care in Diabetes 2016, [place] Diabetes Association. Diabetes Care. 2016.39(Suppl 1). Performed By: #### 2 43205-08, ####[facility] LABORATORYCLIA [id number] [address] STATES [facility] Potassium [Moles/Vol] 3.6 mmol/L Low 3.7-5.1 [facility] Comment on above: Order Comment: Shira feldman Type: BLOOD SPECIMENOrdering Facility: [facility] Address: [address] [place] [address] Performed By: #### 2 4320-06, ####[facility] LABORATORYCLIA [id number] [address] Sodium [Moles/Vol] 138 mmol/L Normal 136-144 [facility] Comment on above: Order Comment: Shira feldman Type: BLOOD SPECIMENOrdering Facility: [facility] Address: [address] [place] [address] Performed By: #### 2 4320-06, ####[facility] LABORATORYCLIA [id number] [address] STATES [facility] Urea nitrogen [Mass/Vol] 11 mg/dL Normal 9-24 [facility] Comment on above: Order Comment: Johni francia Type: BLOOD SPECIMENOrdering Facility: [facility] Address: [address] [place] [address] Performed By: #### 2 4320-06, ####[facility] LABORATORYCLIA [id number] [address] STATES [facility] CASE MANAGEMon 08-16-2021 CASE MANAGEM Normal [facility] CBC W Auto Differential pane l (Bld)on 08-16-2021 Basophils (Bld) [#/Vol] 0.03 10*3/uL Normal <0.11 [facility] Comment on above: Order Comment: Speci men Type: BLOOD SPECIMENOrdering Facility: [facility] Address: [address] [place] [address] Performed By: #### 5 7021-8 ####[facility] LABORATORYCLIA [id number] [address] STATES [facility] Basophils/100 WBC (Bld) 0.4 % Normal [facility] Comment on above: Order Comment: Speci men Type: BLOOD SPECIMENOrdering Facility: [facility] Address: [address] [place] [address] Performed By: #### 5 7021-8 ####[facility]ORATORYCLIA [id number] [address] Differential cell count method Nom (Bld) Auto Normal [facility] Comment on above: Order Comment: Speci men Type: BLOOD SPECIMENOrdering Facility: [facility] Address: [address] [place] [address] Performed By: #### 5 7021-8 ####[facility] LABORATORYCLIA [id number] [address] Eosinophils (Bld) [#/Vol] 0.19 10*3/uL Normal <0.46 [facility] Comment on above: Order Comment: Speci men Type: BLOOD SPECIMENOrdering Facility: [facility] Address: [address] [place] [address] Performed By: #### 5 7021-8 ####[facility]ORATORYCLIA [id number] [address] Eosinophils/100 WBC (Bld) 2.5 % Normal [facility] Comment on above: Order Comment: Speci men Type: BLOOD SPECIMENOrdering Facility: [facility] Address: [address] [place] [address] Performed By: #### 5 7021-8 ####[facility]ORATORYCLIA [id number] [address] Erythrocyte distribution width (RBC) [Ratio] 17.1 % High 11.5-15.0 [facility] Comment on above: Order Comment: Speci men Type: BLOOD SPECIMENOrdering Facility: [facility] Address: [address] [place] [address] Performed By: #### 5 7021-8 ####[facility] LABORATORYCLIA [id number] [address] OF [facility] Hematocrit (Bld) [Volume fraction] 29.2 % Low 39.0-51.0 [facility] Comment on above: Order Comment: Speci men Type: BLOOD SPECIMENOrdering Facility: [facility] Address: [address] [place] [address] Performed By: #### 5 7021-8 ####[facility] LABORATORYCLIA [id number] [address] STATES [facility] Hemoglobin (Bld) [Mass/Vol] 9.0 g/dL Low 13.0-17.0 [facility] Comment on above: Order Comment: Speci men Type: BLOOD SPECIMENOrdering Facility: [facility] Address: [address] [place] [address] Performed By: #### 5 7021-8 ####[facility] LABORATORYCLIA [id number] [address] OF [facility] IMMATURE GRAN % 0.3 % Normal [facility] Comment on above: Order Comment: Speci men Type: BLOOD SPECIMENOrdering Facility: [facility] Address: [address] [place] [address] Performed By: #### 5 7021-8 ####[facility] LABORATORYCLIA [id number] [address] IMMATURE GRAN ABS <0.03 Normal <0.10 [facility] Comment on above: Order Comment: Speci men Type: BLOOD SPECIMENOrdering Facility: [facility] Address: [address] [place] [address] Performed By: #### 5 7021-8 ####[facility] LABORATORYCLIA [id number] [address] [place] Lymphocytes (Bld) [#/Vol] 1.41 10*3/uL Normal 1.00-4.00 [facility] Comment on above: Order Comment: Speci men Type: BLOOD SPECIMENOrdering Facility: [facility] Address: [address] [place] [address] Performed By: #### 5 7021-8 ####[facility] LABORATORYCLIA [id number] [address] Lymphocytes/100 WBC (Bld) 18.4 % Normal [facility] Comment on above: Order Comment: Speci men Type: BLOOD SPECIMENOrdering Facility: [facility] Address: [address] [place] [address] Performed By: #### 5 7021-8 ####[facility] LABORATORYCLIA [id number] [address] [place] [facility] MCH (RBC) [Entitic mass] 28.0 pg Normal 26.0-34.0 [facility] Comment on above: Order Comment: Speci men Type: BLOOD SPECIMENOrdering Facility: [facility] Address: [address] [place] [address] Performed By: #### 5 7021-8 ####[place] [facility] LABORATORYCLIA [id number] [address] [place] MCHC (RBC) [Mass/Vol] 30.8 g/dL Normal 30.5-36.0 [facility] Comment on above: Order Comment: Speci men Type: BLOOD SPECIMENOrdering Facility: [facility] Address: [address] [place] [address] Performed By: #### 5 7021-8 ####[facility] LABORATORYCLIA [id number] [address] [place] MCV (RBC) [Entitic vol] 91.0 fL Normal 80.0-100.0 [facility] Comment on above: Order Comment: Speci men Type: BLOOD SPECIMENOrdering Facility: [facility] Address: [address] [address] Performed By: #### 5 7021-8 ####[facility]ORATORYCLIA [id number] [place] [address] [place] Monocytes (Bld) [#/Vol] 0.47 10*3/uL Normal <0.87 [facility] Comment on above: Order Comment: Speci men Type: BLOOD SPECIMENOrdering Facility: [facility] Address: [address] [place] [address] Performed By: #### 5 7021-8 ####[facility]ORATORYCLIA [id number] [address] [place] Monocytes/100 WBC (Bld) 6.1 % Normal [facility] Comment on above: Order Comment: Speci men Type: BLOOD SPECIMENOrdering Facility: [facility] Address: [address] [place] [address] Performed By: #### 5 7021-8 ####[facility] LABORATORYCLIA [id number] [address] [place] Neutrophils (Bld) [#/Vol] 5.55 10*3/uL Normal 1.45-7.50 [facility] Comment on above: Order Comment: Speci men Type: BLOOD SPECIMENOrdering Facility: [facility] Address: [address] [place] [address] Performed By: #### 5 7021-8 ####[facility]ATORYCLIA [id number] [address] [place] Neutrophils/100 WBC (Bld) 72.3 % Normal [facility] Comment on above: Order Comment: Speci men Type: BLOOD SPECIMENOrdering Facility: [facility] Address: [address] [place] [address] Performed By: #### 5 7021-8 ####[facility]ORATORYCLIA [id number] [place] [address] [place] Nucleated RBC (Bld) [#/Vol] 10*3/uL Normal <0.01 [facility] Comment on above: Order Comment: Speci men Type: BLOOD SPECIMENOrdering Facility: [facility] Address: [address] [place] [address] Performed By: #### 5 7021-8 ####[facility] LABORATORYCLIA [id number] [address] OF [facility] Nucleated RBC/100 WBC (Bld) [Ratio] 0.0 /100 WBC Normal [facility] Comment on above: Order Comment: Speci men Type: BLOOD SPECIMENOrdering Facility: [facility] Address: [address] [place] [address] Performed By: #### 5 7021-8 ####[facility] LABORATORYCLIA [id number] [address] [place] Platelet mean volume (Bld) [Entitic vol] 9.3 fL Normal 9.0-12.7 [facility] Comment on above: Order Comment: Speci men Type: BLOOD SPECIMENOrdering Facility: [facility] Address: [address] [place] [address] Performed By: #### 5 7021-8 ####[facility] LABORATORYCLIA [id number] [address] [place] Platelets (Bld) [#/Vol] 319 10*3/uL Normal 150-400 [facility] Comment on above: Order Comment: Speci men Type: BLOOD SPECIMENOrdering Facility: [facility] Address: [address] [place], [place] [id number] Performed By: #### 5 7021-8 ####[facility] LABORATORYCLIA [id number] [address] [place] RBC (Bld) [#/Vol] 3.21 10*6/uL Low 4.20-6.00 [facility] Comment on above: Order Comment: Speci men Type: BLOOD SPECIMENOrdering Facility: [facility] Address: [address] [place], [place] [id number] Performed By: #### 5 7021-8 ####[facility] LABORATORYCLIA [id number] [place] [address] [place] WBC (Bld) [#/Vol] 7.67 10*3/uL Normal 3.70-11.00 [facility] Comment on above: Order Comment: Speci men Type: BLOOD SPECIMENOrdering Facility: [facility] Address: [address] [place] [address] Performed By: #### 5 7021-8 ####[facility] LABORATORYCLIA [id number] [address] [place] Basophils (Bld) [#/Vol] 0.04 10*3/uL Normal <0.11 [facility] Comment on above: Order Comment: Speci men Type: BLOOD SPECIMENOrdering Facility: [facility] Address: [address] [place] [address] Performed By: #### 5 7021-8 ####[facility] LABORATORYCLIA [id number] [address] Basophils/100 WBC (Bld) 0.5 % Normal [facility] Comment on above: Order Comment: Speci men Type: BLOOD SPECIMENOrdering Facility: [facility] Address: [address] [place] [address] Performed By: #### 5 7021-8 ####[facility] LABORATORYCLIA [id number] [address] [place] Differential cell count method Nom (Bld) Auto Normal [facility] Comment on above: Order Comment: Speci men Type: BLOOD SPECIMENOrdering Facility: [facility] Address: [address] [place] [address] Performed By: #### 5 7021-8 ####[facility] LABORATORYCLIA [id number] [address] [place] Eosinophils (Bld) [#/Vol] 0.19 10*3/uL Normal <0.46 [facility] Comment on above: Order Comment: Speci men Type: BLOOD SPECIMENOrdering Facility: [facility] Address: [address] [place] [address] Performed By: #### 5 7021-8 ####[facility]ATORYCLIA [id number] [address] Eosinophils/100 WBC (Bld) 2.5 % Normal [facility] Comment on above: Order Comment: Speci men Type: BLOOD SPECIMENOrdering Facility: [facility] Address: [address] [place] [address] Performed By: #### 5 7021-8 ####[facility] LABORATORYCLIA [id number] [address] Erythrocyte distribution width (RBC) [Ratio] 17.2 % High 11.5-15.0 [facility] Comment on above: Order Comment: Speci men Type: BLOOD SPECIMENOrdering Facility: [facility] Address: [address] [place] [address] Performed By: #### 5 7021-8 ####[facility] LABORATORYCLIA [id number] [address] Hematocrit (Bld) [Volume fraction] 29.5 % Low 39.0-51.0 [facility] Comment on above: Order Comment: Speci men Type: BLOOD SPECIMENOrdering Facility: [facility] Address: [address] [place] [address] Performed By: #### 5 7021-8 ####[facility]ORATORYCLIA [id number] [address] Hemoglobin (Bld) [Mass/Vol] 9.2 g/dL Low 13.0-17.0 [facility] Comment on above: Order Comment: Speci men Type: BLOOD SPECIMENOrdering Facility: [facility] Address: [address] [place] [address] Performed By: #### 5 7021-8 ####[facility]ATORYCLIA [id number] [address] [place] IMMATURE GRAN % 0.4 % Normal [facility] Comment on above: Order Comment: Speci men Type: BLOOD SPECIMENOrdering Facility: [facility] Address: [address] [place] [address] Performed By: #### 5 7021-8 ####[facility]ORATORYCLIA [id number] [address] STATES OF [facility] IMMATURE GRAN ABS 0.03 k/uL Normal <0.10 [facility] Comment on above: Order Comment: Speci men Type: BLOOD SPECIMENOrdering Facility: [facility] Address: [address] [place] [address] Performed By: #### 5 7021-8 ####[facility] LABORATORYCLIA [id number] [address] Lymphocytes (Bld) [#/Vol] 1.50 10*3/uL Normal 1.00-4.00 [facility] Comment on above: Order Comment: Speci men Type: BLOOD SPECIMENOrdering Facility: [facility] Address: [address] [place] [address] Performed By: #### 5 7021-8 ####[facility] LABORATORYCLIA [id number] [address] Lymphocytes/100 WBC (Bld) 19.7 % Normal [facility] Comment on above: Order Comment: Speci men Type: BLOOD SPECIMENOrdering Facility: [facility] Address: [address] [place] [address] Performed By: #### 5 7021-8 ####[facility] LABORATORYCLIA [id number] [address] MCH (RBC) [Entitic mass] 28.3 pg Normal 26.0-34.0 [facility] Comment on above: Order Comment: Speci men Type: BLOOD SPECIMENOrdering Facility: [facility] Address: [address] [place] [address] Performed By: #### 5 7021-8 ####[facility]ORATORYCLIA [id number] [address] [place] MCHC (RBC) [Mass/Vol] 31.2 g/dL Normal 30.5-36.0 [facility] Comment on above: Order Comment: Speci men Type: BLOOD SPECIMENOrdering Facility: [facility] Address: [address] [place] [address] Performed By: #### 5 7021-8 ####[facility]ORATORYCLIA [id number] [address] [place] MCV (RBC) [Entitic vol] 90.8 fL Normal 80.0-100.0 [facility] Comment on above: Order Comment: Speci men Type: BLOOD SPECIMENOrdering Facility: [facility] Address: [address] [place] [address] Performed By: #### 5 7021-8 ####[facility] LABORATORYCLIA [id number] [address] STATES [facility] Monocytes (Bld) [#/Vol] 0.49 10*3/uL Normal <0.87 [facility] Comment on above: Order Comment: Speci men Type: BLOOD SPECIMENOrdering Facility: [facility] Address: [address] [place] [address] Performed By: #### 5 7021-8 ####[facility] LABORATORYCLIA [id number] [address] Monocytes/100 WBC (Bld) 6.4 % Normal [facility] Comment on above: Order Comment: Speci men Type: BLOOD SPECIMENOrdering Facility: [facility] Address: [address] [place] [address] Performed By: #### 5 7021-8 ####[facility] LABORATORYCLIA [id number] [address] [place] Neutrophils (Bld) [#/Vol] 5.38 10*3/uL Normal 1.45-7.50 [facility] Comment on above: Order Comment: Speci men Type: BLOOD SPECIMENOrdering Facility: [facility] Address: [address] [place] [address] Performed By: #### 5 7021-8 ####[facility]ATORYCLIA [id number] [address] Neutrophils/100 WBC (Bld) 70.5 % Normal [facility] Comment on above: Order Comment: Speci men Type: BLOOD SPECIMENOrdering Facility: [facility] Address: [address] [place] [address] Performed By: #### 5 7021-8 ####[facility]ORATORYCLIA [id number] [address] [place] Nucleated RBC (Bld) [#/Vol] 10*3/uL Normal <0.01 [facility] Comment on above: Order Comment: Speci men Type: BLOOD SPECIMENOrdering Facility: [facility] Address: [address] [place] [address] Performed By: #### 5 7021-8 ####[facility]ORATORYCLIA [id number] [address] Nucleated RBC/100 WBC (Bld) [Ratio] 0.0 /100 WBC Normal [facility] Comment on above: Order Comment: Speci men Type: BLOOD SPECIMENOrdering Facility: [facility] Address: [address] [place] [address] Performed By: #### 5 7021-8 ####[facility]ORATORYCLIA [id number] [address] [place] Platelet mean volume (Bld) [Entitic vol] 9.0 fL Normal 9.0-12.7 [facility] Comment on above: Order Comment: Speci men Type: BLOOD SPECIMENOrdering Facility: [facility] Address: [address] [place] [address] Performed By: #### 5 7021-8 ####[facility]ORYCLIA [id number] [address] [place] Platelets (Bld) [#/Vol] 316 10*3/uL Normal 150-400 [facility] Comment on above: Order Comment: Speci men Type: BLOOD SPECIMENOrdering Facility: [facility] Address: [address] [place] [address] Performed By: #### 5 7021-8 ####[facility]ORATORYCLIA [id number] [address] [place] RBC (Bld) [#/Vol] 3.25 10*6/uL Low 4.20-6.00 [facility] Comment on above: Order Comment: Speci men Type: BLOOD SPECIMENOrdering Facility: [facility] Address: [address] [place] [address] Performed By: #### 5 7021-8 ####[facility] LABORATORYCLIA [id number] [address] OF [facility] WBC (Bld) [#/Vol] 7.63 10*3/uL Normal 3.70-11.00 [facility] Comment on above: Order Comment: Speci men Type: BLOOD SPECIMENOrdering Facility: [facility] Address: [address] [place] [address] Performed By: #### 5 7021-8 ####[facility] LABORATORYCLIA [id number] [address] OF [facility] Basophils (Bld) [#/Vol] Normal <0.11 [facility] Comment on above: Order Comment: Speci men Type: BLOOD SPECIMENOrdering Facility: [facility] Address: [address] [place] [address] Result Comment: Carolina Owens RN informed lab after results autoverified that she rd on the wrong patient. Lab to credit. Nurse to redraw on correct patient.Corrected result: Previously reported as 0.04 k/uL on 08/16/2021 at 4:44 AM EDT. Performed By: #### 5 7021-8 ####[facility]ORATORYCLIA [id number] [address] [place] Basophils/100 WBC (Bld) Normal [facility] Comment on above: Order Comment: Speci men Type: BLOOD SPECIMENOrdering Facility: [facility] Address: [address] [place] [address] Result Comment: Tati ected result: Previously reported as 0.4 % on 08/16/2021 at 4:44 AM EDT. Performed By: #### 5 7021-8 ####[facility] LABORATORYCLIA [id number] [address] STATES [facility] CBC W Differential panel, method unspecified (Bld) Normal [facility] Comment on above: Order Comment: Speci men Type: BLOOD SPECIMENOrdering Facility: [facility] Address: [address] [place] [address] Result Comment: Carolina Owens RN informed lab after results autoverified that she rd on the wrong patient. Lab to credit. Nurse to redraw on correct patient. Performed By: #### 5 7021-8 ####[facility] LABORATORYCLIA [id number] [address] Differential cell count method Nom (Bld) Normal [facility] Comment on above: Order Comment: Speci men Type: BLOOD SPECIMENOrdering Facility: [facility] Address: [address] [place] [address] Result Comment: Carolina Owens RN informed lab after results autoverified that she rd on the wrong patient. Lab to credit. Nurse to redraw on correct patient.Corrected result: Previously reported as Auto on 08/16/2021 at 4:44 AM EDT. Performed By: #### 5 7021-8 ####[facility]ORATORYCLIA [id number] [address] [place] Eosinophils (Bld) [#/Vol] Normal <0.46 [facility] Comment on above: Order Comment: Speci men Type: BLOOD SPECIMENOrdering Facility: [facility] Address: [address] [place] [address] Result Comment: Carolina Owens RN informed lab after results autoverified that she rd on the wrong patient. Lab to credit. Nurse to redraw on correct patient.Corrected result: Previously reported as 0.07 k/uL on 08/16/2021 at 4:44 AM EDT. Performed By: #### 5 7021-8 ####[facility] LABORATORYCLIA [id number] [address] STATES [facility] Eosinophils/100 WBC (Bld) Normal [facility] Comment on above: Order Comment: Speci men Type: BLOOD SPECIMENOrdering Facility: [facility] Address: [address] [place] [address] Result Comment: Carolina Owens RN informed lab after results autoverified that she rd on the wrong patient. Lab to credit. Nurse to redraw on correct patient.Corrected result: Previously reported as 0.7 % on 08/16/2021 at 4:44 AM EDT. Performed By: #### 5 7021-8 ####[facility]ORATORYCLIA [id number] [address] Erythrocyte distribution width (RBC) [Ratio] Normal 11.5-15.0 [facility] Comment on above: Order Comment: Speci [facility] Type: BLOOD SPECIMENOrdering Facility: [facility] Address: [address] [place] [address] Result Comment: Carolina Owens RN informed lab after results autoverified that she rd on the wrong patient. Lab to credit. Nurse to redraw on correct patient.Corrected result: Previously reported as 14.2 % on 08/16/2021 at 4:44 AM EDT. Performed By: #### 5 7021-8 ####[facility] LABORATORYCLIA [id number] [address] [place] Hematocrit (Bld) [Volume fraction] Normal 39.0-51.0 [facility] Comment on above: Order Comment: Speci men Type: BLOOD SPECIMENOrdering Facility: [facility] Address: [address] [place] [address] Result Comment: Carolina Owens RN informed lab after results autoverified that she rd on the wrong patient. Lab to credit. Nurse to redraw on correct patient.Corrected result: Previously reported as 34.3 % on 08/16/2021 at 4:44 AM EDT. Performed By: #### 5 7021-8 ####[facility]ORATORYCLIA [id number] [address] Hemoglobin (Bld) [Mass/Vol] Normal 13.0-17.0 [facility] Comment on above: Order Comment: Speci men Type: BLOOD SPECIMENOrdering Facility: [facility] Address: [address] [place] [address] Result Comment: Carolina Owens RN informed lab after results autoverified that she rd on the wrong patient. Lab to credit. Nurse to redraw on correct patient.Corrected result: Previously reported as 11.2 g/dL on 08/16/2021 at 4:44 AM EDT. Performed By: #### 5 7021-8 ####[facility] LABORATORYCLIA [id number] [address] IMMATURE GRAN % Normal [facility] Comment on above: Order Comment: Speci men Type: BLOOD SPECIMENOrdering Facility: [facility] Address: [address] [place] [address] Result Comment: Carolina Owens RN informed lab after results autoverified that she rd on the wrong patient. Lab to credit. Nurse to redraw on correct patient.Corrected result: Previously reported as 0.8 % on 08/16/2021 at 4:44 AM EDT. Performed By: #### 5 7021-8 ####[facility] LABORATORYCLIA [id number] [address] IMMATURE GRAN ABS Normal <0.10 [facility] Comment on above: Order Comment: Speci men Type: BLOOD SPECIMENOrdering Facility: [facility] Address: [address] [place] [address] Result Comment: Tati ected result: Previously reported as 0.08 k/uL on 08/16/2021 at 4:44 AM EDT. Performed By: #### 5 7021-8 ####[facility] LABORATORYCLIA [id number] [address] OF [facility] Lymphocytes (Bld) [#/Vol] Normal 1.00-4.00 [facility] Comment on above: Order Comment: Speci men Type: BLOOD SPECIMENOrdering Facility: [facility] Address: [address] [place] [address] Result Comment: Carolina Owens RN informed lab after results autoverified that she rd on the wrong patient. Lab to credit. Nurse to redraw on correct patient.Corrected result: Previously reported as 1.17 k/uL on 08/16/2021 at 4:44 AM EDT. Performed By: #### 5 7021-8 ####[facility] LABORATORYCLIA [id number] [address] Lymphocytes/100 WBC (Bld) Normal [facility] Comment on above: Order Comment: Speci [facility] Type: BLOOD SPECIMENOrdering Facility: [facility] Address: [address] [place] [address] Result Comment: Carolina Owens RN informed lab after results autoverified that she rd on the wrong patient. Lab to credit. Nurse to redraw on correct patient.Corrected result: Previously reported as 12.0 % on 08/16/2021 at 4:44 AM EDT. Performed By: #### 5 7021-8 ####[facility] LABORATORYCLIA [id number] [address] OF [facility] MCHC (RBC) [Mass/Vol] Normal 30.5-36.0 [facility] Comment on above: Order Comment: Speci [facility] Type: BLOOD SPECIMENOrdering Facility: [facility] Address: [address] [place] [address] Result Comment: Carolina Owens RN informed lab after results autoverified that she rd on the wrong patient. Lab to credit. Nurse to redraw on correct patient.Corrected result: Previously reported as 32.7 g/dL on 08/16/2021 at 4:44 AM EDT. Performed By: #### 5 7021-8 ####[facility] LABORATORYCLIA [id number] [address] [place] MCV (RBC) [Entitic vol] Normal 80.0-100.0 [facility] Comment on above: Order Comment: Speci men Type: BLOOD SPECIMENOrdering Facility: [facility] Address: [address] [place] [address] Result Comment: Carolina Owens RN informed lab after results autoverified that she rd on the wrong patient. Lab to credit. Nurse to redraw on correct patient.Corrected result: Previously reported as 94.2 fL on 08/16/2021 at 4:44 AM EDT. Performed By: #### 5 7021-8 ####[facility] LABORATORYCLIA [id number] [address] Monocytes (Bld) [#/Vol] Normal <0.87 [facility] Comment on above: Order Comment: Speci [facility] Type: BLOOD SPECIMENOrdering Facility: [facility] Address: [address] [place] [address] Result Comment: Carolina Owens RN informed lab after results autoverified that she rd on the wrong patient. Lab to credit. Nurse to redraw on correct patient.Corrected result: Previously reported as 0.99 k/uL on 08/16/2021 at 4:44 AM EDT. Performed By: #### 5 7021-8 ####[facility] LABORATORYCLIA [id number] [address] [place] Monocytes/100 WBC (Bld) Normal [facility] Comment on above: Order Comment: Speci [facility] Type: BLOOD SPECIMENOrdering Facility: [facility] Address: [address] [place] [address] Result Comment: Carolina Owens RN informed lab after results autoverified that she rd on the wrong patient. Lab to credit. Nurse to redraw on correct patient.Corrected result: Previously reported as 10.2 % on 08/16/2021 at 4:44 AM EDT. Performed By: #### 5 7021-8 ####[facility] LABORATORYCLIA [id number] [place] [address] [place] Neutrophils (Bld) [#/Vol] Normal 1.45-7.50 [facility] Comment on above: Order Comment: Speccara feldman Type: BLOOD SPECIMENOrdering Facility: [facility] Address: [address] [place] [address] Result Comment: Carolina Owens RN informed lab after results autoverified that she rd on the wrong patient. Lab to credit. Nurse to redraw on correct patient.Corrected result: Previously reported as 7.40 k/uL on 08/16/2021 at 4:44 AM EDT. Performed By: #### 5 7021-8 ####[facility] LABORATORYCLIA [id number] [address] OF [facility] Neutrophils/100 WBC (Bld) Normal [facility] Comment on above: Order Comment: Shira feldman Type: BLOOD SPECIMENOrdering Facility: [facility] Address: [address] [place] [address] Result Comment: Carolina Owens RN informed lab after results autoverified that she rd on the wrong patient. Lab to credit. Nurse to redraw on correct patient.Corrected result: Previously reported as 75.9 % on 08/16/2021 at 4:44 AM EDT. Performed By: #### 5 7021-8 ####[facility] LABORATORYCLIA [id number] [address] [place] Platelet mean volume (Bld) [Entitic vol] Normal 9.0-12.7 [facility] Comment on above: Order Comment: Speci [facility] Type: BLOOD SPECIMENOrdering Facility: [facility] Address: [address] [place] [address] Result Comment: Carolina Owens RN informed lab after results autoverified that she rd on the wrong patient. Lab to credit. Nurse to redraw on correct patient.Corrected result: Previously reported as 9.1 fL on 08/16/2021 at 4:44 AM EDT. Performed By: #### 5 7021-8 ####[facility] LABORATORYCLIA [id number] [place] [address] [place] Platelets (Bld) [#/Vol] Normal 150-400 [facility] Comment on above: Order Comment: Speci men Type: BLOOD SPECIMENOrdering Facility: [facility] Address: [address] [place] [address] Result Comment: Carolina Owens RN informed lab after results autoverified that she rd on the wrong patient. Lab to credit. Nurse to redraw on correct patient.Corrected result: Previously reported as 338 k/uL on 08/16/2021 at 4:44 AM EDT. Performed By: #### 5 7021-8 ####[facility] LABORATORYCLIA [id number] [address] RBC (Bld) [#/Vol] Normal 4.20-6.00 [facility] Comment on above: Order Comment: Speci men Type: BLOOD SPECIMENOrdering Facility: [facility] Address: [address] [place] [address] Result Comment: Carolina Owens RN informed lab after results autoverified that she rd on the wrong patient. Lab to credit. Nurse to redraw on correct patient.Corrected result: Previously reported as 3.64 m/uL on 08/16/2021 at 4:44 AM EDT. Performed By: #### 5 7021-8 ####[facility] LABORATORYCLIA [id number] [address] WBC (Bld) [#/Vol] Normal 3.70-11.00 [facility] Comment on above: Order Comment: Speci men Type: BLOOD SPECIMENOrdering Facility: [facility] Address: [address] [place] [address] Result Comment: Carolina Owens RN informed lab after results autoverified that she rd on the wrong patient. Lab to credit. Nurse to redraw on correct patient.Corrected result: Previously reported as 9.75 k/uL on 08/16/2021 at 4:44 AM EDT. Performed By: #### 5 7021-8 ####[facility]ORATORYCLIA [id number] [address] OF [facility] CONSULT PROGon 08-16-2021 CONSULT PROG Normal [facility] Magnesium SerPl-mCncon 08-16 Magnesium [Mass/Vol] 1.8 mg/dL Normal 1.7-2.3 [facility] Comment on above: Order Comment: Speci men Type: BLOOD SPECIMENOrdering Facility: [facility] Address: [address] [place] [address] Performed By: #### 2 4321-2, 09289-8 ####[facility] LABORATORYCLIA [id number] [address] NURSING PROGon 08-16-2021 NURSING PROG Normal [facility] Basic metabolic 2000 panelon 08-15-2021 Anion gap [Moles/Vol] 13 mmol/L Normal 9-18 [facility] Comment on above: Order Comment: Speci men Type: BLOOD SPECIMENOrdering Facility: [facility] Address: [address] [place] [address] Performed By: #### 2 4321-2 ####[facility] LABORATORYCLIA [id number] [place] [address] [place] Calcium [Mass/Vol] 9.0 mg/dL Normal 8.5-10.2 [facility] Comment on above: Order Comment: Speci men Type: BLOOD SPECIMENOrdering Facility: [facility] Address: [address] [place] [address] Performed By: #### 2 4321-2 ####[facility] LABORATORYCLIA [id number] [place] [address] [place] Chloride [Moles/Vol] 95 mmol/L Low 97-105 [facility] Comment on above: Order Comment: Speci men Type: BLOOD SPECIMENOrdering Facility: [facility] Address: [address] [place] [address] Performed By: #### 2 4321-2 ####[facility] LABORATORYCLIA [id number] [place] [address] [place] CO2 [Moles/Vol] 28 mmol/L Normal 22-30 [facility] Comment on above: Order Comment: Speci men Type: BLOOD SPECIMENOrdering Facility: [facility] Address: [address] [place] [address] Performed By: #### 2 4321-2 ####[facility] LABORATORYCLIA [id number] [address] [place] Creatinine [Mass/Vol] 0.50 mg/dL Low 0.73-1.22 [facility] Comment on above: Order Comment: Speci men Type: BLOOD SPECIMENOrdering Facility: [facility] Address: [address] [place] [address] Performed By: #### 2 4321-2 ####[facility]ITALIA [id number] [address] OF [facility] ESTIMATED GLOMERULAR FILTRATION RATE 110 mL/min/1.73m??? Normal >=60 [facility] Comment on above: Order Comment: Speci men Type: BLOOD SPECIMENOrdering Facility: [facility] Address: [address] [place] [address] Result Comment: Luzmaria mated Glomerular Filtration Rate [...] By: #### 2 4321-2 ####[facility] LABORATORYCLIA [id number] [address] [place] Glucose [Mass/Vol] 106 mg/dL High 74-99 [facility] Comment on above: Order Comment: Speci men Type: BLOOD SPECIMENOrdering Facility: [facility] Address: [address] [place] [address] Result Comment: The [place] Diabetes Association (ADA) provides guidance for cutoff [...] Standards of Medical Care in Diabetes 2016, [place] Diabetes Association. Diabetes Care. 2016.39(Suppl 1). Performed By: #### 2 4321-2 ####[facility] LABORATORYCLIA [id number] [place] [address] [place] Potassium [Moles/Vol] 3.3 mmol/L Low 3.7-5.1 [facility] Comment on above: Order Comment: Speci francia Type: BLOOD SPECIMENOrdering Facility: [facility] Address: [address] [place] [address] Performed By: #### 2 1-2 ####[facility] LABORATORYCLIA [id number] [place] [address] [place] Sodium [Moles/Vol] 136 mmol/L Normal 136-144 [facility] Comment on above: Order Comment: Shira feldman Type: BLOOD SPECIMENOrdering Facility: [facility] Address: [address] [place] [address] Performed By: #### 2 1-2 ####[facility] LABORATORYCLIA [id number] [place] [address] [place] Urea nitrogen [Mass/Vol] 11 mg/dL Normal 9-24 [facility] Comment on above: Order Comment: Speci men Type: BLOOD SPECIMENOrdering Facility: [facility] Address: [address] [place] [address] Performed By: #### 2 4321-2 ####[facility] LABORATORYCLIA [id number] [place] [address] [place] CASE MANAGEMon 08-15-2021 CASE MANAGEM Normal [facility] CBC W Auto Differential pane l (Bld)on 08-15-2021 Basophils (Bld) [#/Vol] 0.03 10*3/uL Normal <0.11 [facility] Comment on above: Order Comment: Speci men Type: BLOOD SPECIMENOrdering Facility: [facility] Address: [address] [place] [address] Performed By: #### 5 7021-8 ####[facility] GENERAL LABORATORYCLIA [id number] [address] STATES [facility] Basophils/100 WBC (Bld) 0.4 % Normal [facility] Comment on above: Order Comment: Speci men Type: BLOOD SPECIMENOrdering Facility: [facility] Address: [address] [place] [address] Performed By: #### 5 7021-8 ####[facility]ORATORYCLIA [id number] [address] [place] Differential cell count method Nom (Bld) Auto Normal [facility] Comment on above: Order Comment: Speci men Type: BLOOD SPECIMENOrdering Facility: [facility] Address: [address] [place] [address] Performed By: #### 5 7021-8 ####[facility]ORATORYCLIA [id number] [address] [place] Eosinophils (Bld) [#/Vol] 0.20 10*3/uL Normal <0.46 [facility] Comment on above: Order Comment: Speci men Type: BLOOD SPECIMENOrdering Facility: [facility] Address: [address] [place] [address] Performed By: #### 5 7021-8 ####[facility]ORATORYCLIA [id number] [address] [place] Eosinophils/100 WBC (Bld) 2.5 % Normal [facility] Comment on above: Order Comment: Speci men Type: BLOOD SPECIMENOrdering Facility: [facility] Address: [address] [place] [address] Performed By: #### 5 7021-8 ####[facility]ORATORYCLIA [id number] [address] Erythrocyte distribution width (RBC) [Ratio] 16.7 % High 11.5-15.0 [facility] Comment on above: Order Comment: Speci men Type: BLOOD SPECIMENOrdering Facility: [facility] Address: [address] [place] [address] Performed By: #### 5 7021-8 ####[facility] LABORATORYCLIA [id number] [address] Hematocrit (Bld) [Volume fraction] 30.3 % Low 39.0-51.0 [facility] Comment on above: Order Comment: Speci men Type: BLOOD SPECIMENOrdering Facility: [facility] Address: [address] [place] [address] Performed By: #### 5 7021-8 ####[facility]ITALCLIA [id number] [address] OF [facility] Hemoglobin (Bld) [Mass/Vol] 9.4 g/dL Low 13.0-17.0 [facility] Comment on above: Order Comment: Speci men Type: BLOOD SPECIMENOrdering Facility: [facility] Address: [address] [place] [address] Performed By: #### 5 7021-8 ####[facility] LABORATORYCLIA [id number] [address] IMMATURE GRAN % 0.4 % Normal [facility] Comment on above: Order Comment: Speci men Type: BLOOD SPECIMENOrdering Facility: [facility] Address: [address] [place] [address] Performed By: #### 5 7021-8 ####[facility] LABORATORYCLIA [id number] [address] IMMATURE GRAN ABS 0.03 k/uL Normal <0.10 [facility] Comment on above: Order Comment: Speci men Type: BLOOD SPECIMENOrdering Facility: [facility] Address: [address] [place] [address] Performed By: #### 5 7021-8 ####[facility] LABORATORYCLIA [id number] [address] Lymphocytes (Bld) [#/Vol] 1.50 10*3/uL Normal 1.00-4.00 [facility] Comment on above: Order Comment: Speci men Type: BLOOD SPECIMENOrdering Facility: [facility] Address: [address] [place] [address] Performed By: #### 5 7021-8 ####[facility] LABORATORYCLIA [id number] [address] Lymphocytes/100 WBC (Bld) 18.5 % Normal [facility] Comment on above: Order Comment: Speci men Type: BLOOD SPECIMENOrdering Facility: [facility] Address: [address] [place] [address] Performed By: #### 5 7021-8 ####[facility] LABORATORYCLIA [id number] [address] MCH (RBC) [Entitic mass] 29.0 pg Normal 26.0-34.0 [facility] Comment on above: Order Comment: Speci men Type: BLOOD SPECIMENOrdering Facility: [facility] Address: [address] [place] [address] Performed By: #### 5 7021-8 ####[facility] LABORATORYCLIA [id number] [address] MCHC (RBC) [Mass/Vol] 31.0 g/dL Normal 30.5-36.0 [facility] Comment on above: Order Comment: Speci men Type: BLOOD SPECIMENOrdering Facility: [facility] Address: [address] [place] [address] Performed By: #### 5 7021-8 ####[facility] LABORATORYCLIA [id number] [address] [place] MCV (RBC) [Entitic vol] 93.5 fL Normal 80.0-100.0 [facility] Comment on above: Order Comment: Speci men Type: BLOOD SPECIMENOrdering Facility: [facility] Address: [address] [place] [address] Performed By: #### 5 7021-8 ####[facility] GENER[facility] LABORATORYCLIA [id number] [address] Monocytes (Bld) [#/Vol] 0.47 10*3/uL Normal <0.87 [facility] Comment on above: Order Comment: Speci men Type: BLOOD SPECIMENOrdering Facility: [facility] Address: [address] [place] [address] Performed By: #### 5 7021-8 ####[facility] LABORATORYCLIA [id number] [address] Monocytes/100 WBC (Bld) 5.8 % Normal [facility] Comment on above: Order Comment: Speci men Type: BLOOD SPECIMENOrdering Facility: [facility] Address: [address] [place] [address] Performed By: #### 5 7021-8 ####[facility] LABORATORYCLIA [id number] [address] Neutrophils (Bld) [#/Vol] 5.87 10*3/uL Normal 1.45-7.50 [facility] Comment on above: Order Comment: Speci men Type: BLOOD SPECIMENOrdering Facility: [facility] Address: [address] [place] [address] Performed By: #### 5 7021-8 ####[facility]ATORYCLIA [id number] [address] Neutrophils/100 WBC (Bld) 72.4 % Normal [facility] Comment on above: Order Comment: Speci men Type: BLOOD SPECIMENOrdering Facility: [facility] Address: [address] [place] [address] Performed By: #### 5 7021-8 ####[facility]ATORYCLIA [id number] [address] [place] Nucleated RBC (Bld) [#/Vol] 10*3/uL Normal <0.01 [facility] Comment on above: Order Comment: Speci men Type: BLOOD SPECIMENOrdering Facility: [facility] Address: [address] [place] [address] Performed By: #### 5 7021-8 ####[facility] LABORATORYCLIA [id number] [address] [place] Nucleated RBC/100 WBC (Bld) [Ratio] 0.0 /100 WBC Normal [facility] Comment on above: Order Comment: Speci men Type: BLOOD SPECIMENOrdering Facility: [facility] Address: [address] [place] [address] Performed By: #### 5 7021-8 ####[facility] LABORATORYCLIA [id number] [address] [place] Platelet mean volume (Bld) [Entitic vol] 9.4 fL Normal 9.0-12.7 [facility] Comment on above: Order Comment: Speci men Type: BLOOD SPECIMENOrdering Facility: [facility] Address: [address] [place] [address] Performed By: #### 5 7021-8 ####[facility] LABORATORYCLIA [id number] [address] [place] Platelets (Bld) [#/Vol] 290 10*3/uL Normal 150-400 [facility] Comment on above: Order Comment: Speci men Type: BLOOD SPECIMENOrdering Facility: [facility] Address: [address] [address] Performed By: #### 5 7021-8 ####[facility] LABORATORYCLIA [id number] [address] [place] RBC (Bld) [#/Vol] 3.24 10*6/uL Low 4.20-6.00 [facility] Comment on above: Order Comment: Speci men Type: BLOOD SPECIMENOrdering Facility: [facility] Address: [address] [place] [address] Performed By: #### 5 7021-8 ####[facility] LABORATORYCLIA [id number] [place] [address] [place] WBC (Bld) [#/Vol] 8.10 10*3/uL Normal 3.70-11.00 [facility] Comment on above: Order Comment: Speci men Type: BLOOD SPECIMENOrdering Facility: [facility] Address: [address] [address] Performed By: #### 5 7021-8 ####[facility] LABORATORYCLIA [id number] [address] THERAPY NTon 08-15-2021 THERAPY NT Normal [facility] THERAPY NT Normal [facility] THERAPY NT Normal [facility] Basic metabolic 2000 panelon 08-14-2021 Anion gap [Moles/Vol] 10 mmol/L Normal 9-18 [facility] Comment on above: Order Comment: Speci men Type: BLOOD SPECIMENOrdering Facility: [facility] Address: [address] [place] [address] Performed By: #### 2 4321-2 ####[facility] LABORATORYCLIA [id number] [address] [place] Calcium [Mass/Vol] 8.8 mg/dL Normal 8.5-10.2 [facility] Comment on above: Order Comment: Speci men Type: BLOOD SPECIMENOrdering Facility: [facility] Address: [address] [address] Performed By: #### 2 4321-2 ####[facility] LABORATORYCLIA [id number] [place] [address] [place] Chloride [Moles/Vol] 92 mmol/L Low 97-105 [facility] Comment on above: Order Comment: Speci men Type: BLOOD SPECIMENOrdering Facility: [facility] Address: [address] [address] Performed By: #### 2 4321-2 ####[facility] LABORATORYCLIA [id number] [address] CO2 [Moles/Vol] 29 mmol/L Normal 22-30 [facility] Comment on above: Order Comment: Speci men Type: BLOOD SPECIMENOrdering Facility: [facility] Address: [address] [place] [address] Performed By: #### 2 4321-2 ####[facility] LABORATORYCLIA [id number] [address] Creatinine [Mass/Vol] 0.49 mg/dL Low 0.73-1.22 [facility] Comment on above: Order Comment: Speci men Type: BLOOD SPECIMENOrdering Facility: [facility] Address: [address] [place] [address] Performed By: #### 2 4321-2 ####[facility] LABORATORYCLIA [id number] [address] ESTIMATED GLOMERULAR FILTRATION RATE 111 mL/min/1.73m??? Normal >=60 [facility] Comment on above: Order Comment: Speci men Type: BLOOD SPECIMENOrdering Facility: [facility] Address: [address] [place] [address] Result Comment: Luzmaria mated Glomerular Filtration Rate [...] By: #### 2 4321-2 ####[facility] LABORATORYCLIA [id number] [address] Glucose [Mass/Vol] 104 mg/dL High 74-99 [facility] Comment on above: Order Comment: Speci men Type: BLOOD SPECIMENOrdering Facility: [facility] Address: [address] [address] Result Comment: The [place] Diabetes Association (ADA) provides guidance for cutoff [...] Standards of Medical Care in Diabetes 2016, [place] Diabetes Association. Diabetes Care. 2016.39(Suppl 1). Performed By: #### 2 4321-2 ####[facility] LABORATORYCLIA [id number] [address] [place] Potassium [Moles/Vol] 3.1 mmol/L Low 3.7-5.1 [facility] Comment on above: Order Comment: Shira feldman Type: BLOOD SPECIMENOrdering Facility: [facility] Address: [address] [place] [address] Performed By: #### 2 4321-2 ####[facility] LABORATORYCLIA [id number] [address] STATES [facility] Sodium [Moles/Vol] 131 mmol/L Low 136-144 [facility] Comment on above: Order Comment: Shira feldman Type: BLOOD SPECIMENOrdering Facility: [facility] Address: [address] [place] [address] Performed By: #### 2 4321-2 ####[facility] LABORATORYCLIA [id number] [address] [place] [facility] Urea nitrogen [Mass/Vol] 13 mg/dL Normal 9-24 [facility] Comment on above: Order Comment: Shira feldman Type: BLOOD SPECIMENOrdering Facility: [facility] Address: [address] [place] [address] Performed By: #### 2 4321-2 ####[facility] LABORATORYCLIA [id number] [place] [address] [place] CBC W Auto Differential pane l (Bld)on 08-14-2021 Basophils (Bld) [#/Vol] 10*3/uL Normal <0.11 [facility] Comment on above: Order Comment: Speci men Type: BLOOD SPECIMENOrdering Facility: [facility] Address: [address] [place] [address] Performed By: #### 5 7021-8 ####[facility]ORATORYCLIA [id number] [address] [place] Basophils/100 WBC (Bld) 0.2 % Normal [facility] Comment on above: Order Comment: Speci men Type: BLOOD SPECIMENOrdering Facility: [facility] Address: [address] [place] [address] Performed By: #### 5 7021-8 ####[facility]ORATORYCLIA [id number] [address] [place] Differential cell count method Nom (Bld) Auto Normal [facility] Comment on above: Order Comment: Speci men Type: BLOOD SPECIMENOrdering Facility: [facility] Address: [address] [place] [address] Performed By: #### 5 7021-8 ####[facility]ORATORYCLIA [id number] [address] [place] Eosinophils (Bld) [#/Vol] 0.23 10*3/uL Normal <0.46 [facility] Comment on above: Order Comment: Speci men Type: BLOOD SPECIMENOrdering Facility: [facility] Address: [address] [place] [address] Performed By: #### 5 7021-8 ####[facility]ORYCLIA [id number] [address] [place] Eosinophils/100 WBC (Bld) 2.7 % Normal [facility] Comment on above: Order Comment: Speci men Type: BLOOD SPECIMENOrdering Facility: [facility] Address: [address] [place] [address] Performed By: #### 5 7021-8 ####[facility]ORYCLIA [id number] [address] Erythrocyte distribution width (RBC) [Ratio] 16.6 % High 11.5-15.0 [facility] Comment on above: Order Comment: Speci men Type: BLOOD SPECIMENOrdering Facility: [facility] Address: [address] [place] [address] Performed By: #### 5 7021-8 ####[facility] LABORATORYCLIA [id number] [address] Hematocrit (Bld) [Volume fraction] 28.6 % Low 39.0-51.0 [facility] Comment on above: Order Comment: Speci men Type: BLOOD SPECIMENOrdering Facility: [facility] Address: [address] [place] [address] Performed By: #### 5 7021-8 ####[facility] LABORATORYCLIA [id number] [address] Hemoglobin (Bld) [Mass/Vol] 9.0 g/dL Low 13.0-17.0 [facility] Comment on above: Order Comment: Speci men Type: BLOOD SPECIMENOrdering Facility: [facility] Address: [address] [place] [address] Performed By: #### 5 7021-8 ####[facility] LABORATORYCLIA [id number] [address] IMMATURE GRAN % 0.2 % Normal [facility] Comment on above: Order Comment: Speci men Type: BLOOD SPECIMENOrdering Facility: [facility] Address: [address] [place] [address] Performed By: #### 5 7021-8 ####[facility] LABORATORYCLIA [id number] [address] IMMATURE GRAN ABS <0.03 Normal <0.10 [facility] Comment on above: Order Comment: Speci men Type: BLOOD SPECIMENOrdering Facility: [facility] Address: [address] [place] [address] Performed By: #### 5 7021-8 ####[facility] LABORATORYCLIA [id number] [address] STATES OF [facility] Lymphocytes (Bld) [#/Vol] 1.33 10*3/uL Normal 1.00-4.00 [facility] Comment on above: Order Comment: Speci men Type: BLOOD SPECIMENOrdering Facility: [facility] Address: [address] [place] [address] Performed By: #### 5 7021-8 ####[facility] LABORATORYCLIA [id number] [address] Lymphocytes/100 WBC (Bld) 15.6 % Normal [facility] Comment on above: Order Comment: Speci men Type: BLOOD SPECIMENOrdering Facility: [facility] Address: [address] [place] [address] Performed By: #### 5 7021-8 ####[facility] LABORATORYCLIA [id number] [address] [place] [facility] MCH (RBC) [Entitic mass] 29.0 pg Normal 26.0-34.0 [facility] Comment on above: Order Comment: Speci men Type: BLOOD SPECIMENOrdering Facility: [facility] Address: [address] [place] [address] Performed By: #### 5 7021-8 ####[facility] LABORATORYCLIA [id number] [address] [place] MCHC (RBC) [Mass/Vol] 31.5 g/dL Normal 30.5-36.0 [facility] Comment on above: Order Comment: Speci men Type: BLOOD SPECIMENOrdering Facility: [facility] Address: [address] [place] [address] Performed By: #### 5 7021-8 ####[facility] LABORATORYCLIA [id number] [address] [place] MCV (RBC) [Entitic vol] 92.3 fL Normal 80.0-100.0 [facility] Comment on above: Order Comment: Speci men Type: BLOOD SPECIMENOrdering Facility: [facility] Address: [address] [place] [address] Performed By: #### 5 7021-8 ####[facility]ORATORYCLIA [id number] [place] [address] [place] Monocytes (Bld) [#/Vol] 0.44 10*3/uL Normal <0.87 [facility] Comment on above: Order Comment: Speci men Type: BLOOD SPECIMENOrdering Facility: [facility] Address: [address] [place] [address] Performed By: #### 5 7021-8 ####[facility]ORATORYCLIA [id number] [address] [place] Monocytes/100 WBC (Bld) 5.2 % Normal [facility] Comment on above: Order Comment: Speci men Type: BLOOD SPECIMENOrdering Facility: [facility] Address: [address] [place] [address] Performed By: #### 5 7021-8 ####[facility]ORATORYCLIA [id number] [address] [place] Neutrophils (Bld) [#/Vol] 6.46 10*3/uL Normal 1.45-7.50 [facility] Comment on above: Order Comment: Speci men Type: BLOOD SPECIMENOrdering Facility: [facility] Address: [address] [place] [address] Performed By: #### 5 7021-8 ####[facility]ORATORYCLIA [id number] [address] [place] Neutrophils/100 WBC (Bld) 76.1 % Normal [facility] Comment on above: Order Comment: Speci men Type: BLOOD SPECIMENOrdering Facility: [facility] Address: [address] [place] [address] Performed By: #### 5 7021-8 ####[facility]ORATORYCLIA [id number] [address] Nucleated RBC (Bld) [#/Vol] 10*3/uL Normal <0.01 [facility] Comment on above: Order Comment: Speci men Type: BLOOD SPECIMENOrdering Facility: [facility] Address: [address] [place] [address] Performed By: #### 5 7021-8 ####[facility] LABORATORYCLIA [id number] [address] [place] Nucleated RBC/100 WBC (Bld) [Ratio] 0.0 /100 WBC Normal [facility] Comment on above: Order Comment: Speci men Type: BLOOD SPECIMENOrdering Facility: [facility] Address: [address] [place] [address] Performed By: #### 5 7021-8 ####[facility] LABORATORYCLIA [id number] [address] [place] Platelet mean volume (Bld) [Entitic vol] 9.5 fL Normal 9.0-12.7 [facility] Comment on above: Order Comment: Speci men Type: BLOOD SPECIMENOrdering Facility: [facility] Address: [address] [place] [address] Performed By: #### 5 7021-8 ####[facility] LABORATORYCLIA [id number] [address] [place] Platelets (Bld) [#/Vol] 247 10*3/uL Normal 150-400 [facility] Comment on above: Order Comment: Speci men Type: BLOOD SPECIMENOrdering Facility: [facility] Address: [address] [place] [address] Performed By: #### 5 7021-8 ####[facility] LABORATORYCLIA [id number] [address] [place] RBC (Bld) [#/Vol] 3.10 10*6/uL Low 4.20-6.00 [facility] Comment on above: Order Comment: Speci men Type: BLOOD SPECIMENOrdering Facility: [facility] Address: [address] [address] Performed By: #### 5 7021-8 ####[facility] LABORATORYCLIA [id number] [place] [address] [place] WBC (Bld) [#/Vol] 8.50 10*3/uL Normal 3.70-11.00 [facility] Comment on above: Order Comment: Speci men Type: BLOOD SPECIMENOrdering Facility: [facility] Address: [facility] [place] [address] Performed By: #### 5 7021-8 ####[facility] LABORATORYCLIA [id number] [address] [place] CONSULTon 08-14-2021 CONSULT Normal [facility] NURSING PROGon 08-14-2021 NURSING PROG Normal [facility] CBC W Auto Differential pane l (Bld)on 08-13-2021 Basophils (Bld) [#/Vol] 10*3/uL Normal <0.11 [facility] Comment on above: Order Comment: Speci men Type: BLOOD SPECIMENOrdering Facility: [facility] Address: [address] [place] [address] Performed By: #### 5 7021-8 ####[facility] LABORATORYCLIA [id number] [address] [place] Basophils/100 WBC (Bld) 0.2 % Normal [facility] Comment on above: Order Comment: Speci men Type: BLOOD SPECIMENOrdering Facility: [facility] Address: [address] [address] Performed By: #### 5 7021-8 ####[facility] LABORATORYCLIA [id number] [address] STATES [facility] Differential cell count method Nom (Bld) Auto Normal [facility] Comment on above: Order Comment: Speci men Type: BLOOD SPECIMENOrdering Facility: [facility] Address: [address] [address] Performed By: #### 5 7021-8 ####[facility]ORATORYCLIA [id number] [address] [place] Eosinophils (Bld) [#/Vol] 0.31 10*3/uL Normal <0.46 [facility] Comment on above: Order Comment: Speci men Type: BLOOD SPECIMENOrdering Facility: [facility] Address: [address] [place] [address] Performed By: #### 5 7021-8 ####[facility] LABORATORYCLIA [id number] [address] Eosinophils/100 WBC (Bld) 3.7 % Normal [facility] Comment on above: Order Comment: Speci men Type: BLOOD SPECIMENOrdering Facility: [facility] Address: [address] [place] [address] Performed By: #### 5 7021-8 ####[facility] LABORATORYCLIA [id number] [address] Erythrocyte distribution width (RBC) [Ratio] 16.6 % High 11.5-15.0 [facility] Comment on above: Order Comment: Speci men Type: BLOOD SPECIMENOrdering Facility: [facility] Address: [address] [place] [address] Performed By: #### 5 7021-8 ####[facility] LABORATORYCLIA [id number] [address] [place] Hematocrit (Bld) [Volume fraction] 27.5 % Low 39.0-51.0 [facility] Comment on above: Order Comment: Speci men Type: BLOOD SPECIMENOrdering Facility: [facility] Address: [address] [place] [address] Performed By: #### 5 7021-8 ####[facility] LABORATORYCLIA [id number] [address] Hemoglobin (Bld) [Mass/Vol] 8.4 g/dL Low 13.0-17.0 [facility] Comment on above: Order Comment: Speci men Type: BLOOD SPECIMENOrdering Facility: [facility] Address: [address] [place] [address] Performed By: #### 5 7021-8 ####[facility] LABORATORYCLIA [id number] [address] IMMATURE GRAN % 0.5 % Normal [facility] Comment on above: Order Comment: Speci men Type: BLOOD SPECIMENOrdering Facility: [facility] Address: [address] [place] [address] Performed By: #### 5 7021-8 ####[facility] LABORATORYCLIA [id number] [address] IMMATURE GRAN ABS 0.04 k/uL Normal <0.10 [facility] Comment on above: Order Comment: Speci men Type: BLOOD SPECIMENOrdering Facility: [facility] Address: [address] [place] [address] Performed By: #### 5 7021-8 ####[facility] LABORATORYCLIA [id number] [address] Lymphocytes (Bld) [#/Vol] 1.55 10*3/uL Normal 1.00-4.00 [facility] Comment on above: Order Comment: Speci men Type: BLOOD SPECIMENOrdering Facility: [facility] Address: [address] [place] [address] Performed By: #### 5 7021-8 ####[facility] LABORATORYCLIA [id number] [address] Lymphocytes/100 WBC (Bld) 18.7 % Normal [facility] Comment on above: Order Comment: Speci men Type: BLOOD SPECIMENOrdering Facility: [facility] Address: [address] [place] [address] Performed By: #### 5 7021-8 ####[facility] LABORATORYCLIA [id number] [address] [place] MCH (RBC) [Entitic mass] 28.9 pg Normal 26.0-34.0 [facility] Comment on above: Order Comment: Speci men Type: BLOOD SPECIMENOrdering Facility: [facility] Address: [address] [place] [address] Performed By: #### 5 7021-8 ####[facility] LABORATORYCLIA [id number] [address] MCHC (RBC) [Mass/Vol] 30.5 g/dL Normal 30.5-36.0 [facility] Comment on above: Order Comment: Speci men Type: BLOOD SPECIMENOrdering Facility: [facility] Address: [address] [place] [address] Performed By: #### 5 7021-8 ####[facility] LABORATORYCLIA [id number] [address] MCV (RBC) [Entitic vol] 94.5 fL Normal 80.0-100.0 [facility] Comment on above: Order Comment: Speci men Type: BLOOD SPECIMENOrdering Facility: [facility] Address: [address] [place] [address] Performed By: #### 5 7021-8 ####[facility] LABORATORYCLIA [id number] [address] Monocytes (Bld) [#/Vol] 0.47 10*3/uL Normal <0.87 [facility] Comment on above: Order Comment: Speci men Type: BLOOD SPECIMENOrdering Facility: [facility] Address: [address] [place] [address] Performed By: #### 5 7021-8 ####[facility] LABORATORYCLIA [id number] [address] Monocytes/100 WBC (Bld) 5.7 % Normal [facility] Comment on above: Order Comment: Speci men Type: BLOOD SPECIMENOrdering Facility: [facility] Address: [address] [place] [address] Performed By: #### 5 7021-8 ####[facility] LABORATORYCLIA [id number] [place] [address] [place] Neutrophils (Bld) [#/Vol] 5.92 10*3/uL Normal 1.45-7.50 [facility] Comment on above: Order Comment: Speci men Type: BLOOD SPECIMENOrdering Facility: [facility] Address: [address] [place] [address] Performed By: #### 5 7021-8 ####[facility] LABORATORYCLIA [id number] [place] [address] [place] Neutrophils/100 WBC (Bld) 71.2 % Normal [facility] Comment on above: Order Comment: Speci men Type: BLOOD SPECIMENOrdering Facility: [facility] Address: [address] [place] [address] Performed By: #### 5 7021-8 ####[facility] LABORATORYCLIA [id number] [address] [place] Nucleated RBC (Bld) [#/Vol] 10*3/uL Normal <0.01 [facility] Comment on above: Order Comment: Speci men Type: BLOOD SPECIMENOrdering Facility: [facility] Address: [address] [place] [address] Performed By: #### 5 7021-8 ####[facility] LABORATORYCLIA [id number] [address] [place] Nucleated RBC/100 WBC (Bld) [Ratio] 0.0 /100 WBC Normal [facility] Comment on above: Order Comment: Speci men Type: BLOOD SPECIMENOrdering Facility: [facility] Address: [address] [place] [address] Performed By: #### 5 7021-8 ####[facility] LABORATORYCLIA [id number] [address] [place] Platelet mean volume (Bld) [Entitic vol] 9.9 fL Normal 9.0-12.7 [facility] Comment on above: Order Comment: Speci men Type: BLOOD SPECIMENOrdering Facility: [facility] Address: [address] [place] [address] Performed By: #### 5 7021-8 ####[facility] LABORATORYCLIA [id number] [address] Platelets (Bld) [#/Vol] 203 10*3/uL Normal 150-400 [facility] Comment on above: Order Comment: Speci men Type: BLOOD SPECIMENOrdering Facility: [facility] Address: [address] [place] [address] Performed By: #### 5 7021-8 ####[facility] LABORATORYCLIA [id number] [address] [place] RBC (Bld) [#/Vol] 2.91 10*6/uL Low 4.20-6.00 [facility] Comment on above: Order Comment: Speci men Type: BLOOD SPECIMENOrdering Facility: [facility] Address: [address] [place] [address] Performed By: #### 5 7021-8 ####[facility] LABORATORYCLIA [id number] [address] WBC (Bld) [#/Vol] 8.31 10*3/uL Normal 3.70-11.00 [facility] Comment on above: Order Comment: Speci men Type: BLOOD SPECIMENOrdering Facility: [facility] Address: [address] [place] [address] Performed By: #### 5 7021-8 ####[facility] LABORATORYCLIA [id number] [address] aPTT PPPon 08-13-2021 aPTT Coag (PPP) [Time] 69.7 s High 23.0-32.4 [facility] Comment on above: Order Comment: Speci men Type: BLOOD SPECIMENOrdering Facility: [facility] Address: [address] [place] [address] Performed By: #### 1 4979-9 ####[facility] LABORATORYCLIA [id number] [address] aPTT Coag (PPP) [Time] 70.6 s High 23.0-32.4 [facility] Comment on above: Order Comment: Speci men Type: BLOOD SPECIMENOrdering Facility: [facility] Address: [address] [place] [address] Performed By: #### 1 4979-9 ####[facility] LABORATORYCLIA [id number] [place] [address] [place] ALLIED HEALTHon 08-12-2021 ALLIED HEALTH Normal [facility] ALLIED HEALTH Normal [facility] Basic metabolic 2000 panelon 08-12-2021 Anion gap [Moles/Vol] 7 mmol/L Low 9-18 [facility] Comment on above: Order Comment: Speci men Type: BLOOD SPECIMENOrdering Facility: [facility] Address: [address] [place] [address] Performed By: #### 2 4321-2, , 2776-05 ####[facility] LABORATORYCLIA [id number] [place] [address] [place] Calcium [Mass/Vol] 8.8 mg/dL Normal 8.5-10.2 [facility] Comment on above: Order Comment: Speci men Type: BLOOD SPECIMENOrdering Facility: [facility] Address: [address] [place] [address] Performed By: #### 2 4321-2, , 2776-05 ####[facility] LABORATORYCLIA [id number] [place] [address] [place] Chloride [Moles/Vol] 96 mmol/L Low 97-105 [facility] Comment on above: Order Comment: Speci men Type: BLOOD SPECIMENOrdering Facility: [facility] Address: [address] [place] [address] Performed By: #### 2 4321-2, , 2776-05 ####[facility] LABORATORYCLIA [id number] [place] [address] [place] CO2 [Moles/Vol] 32 mmol/L High 22-30 [facility] Comment on above: Order Comment: Speci men Type: BLOOD SPECIMENOrdering Facility: [facility] Address: [address] [place] [address] Performed By: #### 2 4321-2, , 2776-05 ####[facility] LABORATORYCLIA [id number] [place] [id number] [place] Creatinine [Mass/Vol] 0.52 mg/dL Low 0.73-1.22 [facility] Comment on above: Order Comment: Speci men Type: BLOOD SPECIMENOrdering Facility: [facility] Address: [address] [place] [address] Performed By: #### 2 4321-2, , 2776-05 ####[facility]ITALCLIA [id number] [address] [place] ESTIMATED GLOMERULAR FILTRATION RATE 109 mL/min/1.73m??? Normal >=60 [facility] Comment on above: Order Comment: Speci men Type: BLOOD SPECIMENOrdering Facility: [facility] Address: [address] [place] [address] Result Comment: Luzmaria mated Glomerular Filtration Rate [...] 2 4321-2, , 2776-05 ####[facility] LABORATORYCLIA [id number] [place] [address] [place] Glucose [Mass/Vol] 119 mg/dL High 74-99 [facility] Comment on above: Order Comment: Speci men Type: BLOOD SPECIMENOrdering Facility: [facility] Address: [address] [place] [address] Result Comment: The [place] Diabetes Association (ADA) provides guidance for cutoff [...] Standards of Medical Care in Diabetes 2016, [place] Diabetes Association. Diabetes Care. 2016.39(Suppl 1). Performed By: #### 2 4321-2, , 2776-05 ####[facility] LABORATORYCLIA [id number] [place] [address] [place] Potassium [Moles/Vol] 3.7 mmol/L Normal 3.7-5.1 [facility] Comment on above: Order Comment: Speci men Type: BLOOD SPECIMENOrdering Facility: [facility] Address: [address] [place] [address] Performed By: #### 2 4321-2, , 2776-05 ####[facility] LABORATORYCLIA [id number] [place] [address] [place] Sodium [Moles/Vol] 135 mmol/L Low 136-144 [facility] Comment on above: Order Comment: Speci men Type: BLOOD SPECIMENOrdering Facility: [facility] Address: [address] [place] [address] Performed By: #### 2 4321-2, , 2776-05 ####[facility] LABORATORYCLIA [id number] [place] [address] [place] Urea nitrogen [Mass/Vol] 20 mg/dL Normal 9-24 [facility] Comment on above: Order Comment: Speci men Type: BLOOD SPECIMENOrdering Facility: [facility] Address: [address] [address] Performed By: #### 2 4321-2, , 2777-1 ####[facility]ORATORYCLIA [id number] [address] [place] CASE MANAGEMon 08-12-2021 CASE MANAGEM Normal [facility] CBC W Auto Differential pane l (Bld)on 08-12-2021 Basophils (Bld) [#/Vol] 0.04 10*3/uL Normal <0.11 [facility] Comment on above: Order Comment: Speci men Type: BLOOD SPECIMENOrdering Facility: [facility] Address: [address] [place] [address] Performed By: #### 5 7021-8 ####[facility] LABORATORYCLIA [id number] [address] Basophils/100 WBC (Bld) 0.5 % Normal [facility] Comment on above: Order Comment: Speci men Type: BLOOD SPECIMENOrdering Facility: [facility] Address: [address] [place] [address] Performed By: #### 5 7021-8 ####[facility] LABORATORYCLIA [id number] [address] Differential cell count method Nom (Bld) Auto Normal [facility] Comment on above: Order Comment: Speci men Type: BLOOD SPECIMENOrdering Facility: [facility] Address: [address] [place] [address] Performed By: #### 5 7021-8 ####[facility] LABORATORYCLIA [id number] [place] [address] [place] Eosinophils (Bld) [#/Vol] 0.19 10*3/uL Normal <0.46 [facility] Comment on above: Order Comment: Speci men Type: BLOOD SPECIMENOrdering Facility: [facility] Address: [address] [place] [address] Performed By: #### 5 7021-8 ####[facility]ATORYCLIA [id number] [address] Eosinophils/100 WBC (Bld) 2.3 % Normal [facility] Comment on above: Order Comment: Speci men Type: BLOOD SPECIMENOrdering Facility: [facility] Address: [address] [place] [address] Performed By: #### 5 7021-8 ####[facility] LABORATORYCLIA [id number] [address] [place] Erythrocyte distribution width (RBC) [Ratio] 17.1 % High 11.5-15.0 [facility] Comment on above: Order Comment: Speci men Type: BLOOD SPECIMENOrdering Facility: [facility] Address: [address] [place] [address] Performed By: #### 5 7021-8 ####[facility] LABORATORYCLIA [id number] [address] Hematocrit (Bld) [Volume fraction] 25.3 % Low 39.0-51.0 [facility] Comment on above: Order Comment: Speci men Type: BLOOD SPECIMENOrdering Facility: [facility] Address: [address] [place] [address] Performed By: #### 5 7021-8 ####[facility] LABORATORYCLIA [id number] [address] [place] Hemoglobin (Bld) [Mass/Vol] 7.9 g/dL Low 13.0-17.0 [facility] Comment on above: Order Comment: Speci men Type: BLOOD SPECIMENOrdering Facility: [facility] Address: [address] [place] [address] Performed By: #### 5 7021-8 ####[facility] LABORATORYCLIA [id number] [address] [place] IMMATURE GRAN % 0.5 % Normal [facility] Comment on above: Order Comment: Speci men Type: BLOOD SPECIMENOrdering Facility: [facility] Address: [address] [place] [address] Performed By: #### 5 7021-8 ####[facility] LABORATORYCLIA [id number] [address] [place] IMMATURE GRAN ABS 0.04 k/uL Normal <0.10 [facility] Comment on above: Order Comment: Speci men Type: BLOOD SPECIMENOrdering Facility: [facility] Address: [address] [place] [address] Performed By: #### 5 7021-8 ####[facility] LABORATORYCLIA [id number] [address] Lymphocytes (Bld) [#/Vol] 1.69 10*3/uL Normal 1.00-4.00 [facility] Comment on above: Order Comment: Speci men Type: BLOOD SPECIMENOrdering Facility: [facility] Address: [address] [place] [address] Performed By: #### 5 7021-8 ####[facility] LABORATORYCLIA [id number] [address] Lymphocytes/100 WBC (Bld) 20.1 % Normal [facility] Comment on above: Order Comment: Speci men Type: BLOOD SPECIMENOrdering Facility: [facility] Address: [address] [place] [address] Performed By: #### 5 7021-8 ####[facility] LABORATORYCLIA [id number] [address] MCH (RBC) [Entitic mass] 28.5 pg Normal 26.0-34.0 [facility] Comment on above: Order Comment: Speci men Type: BLOOD SPECIMENOrdering Facility: [facility] Address: [address] [place] [address] Performed By: #### 5 7021-8 ####[facility] LABORATORYCLIA [id number] [address] MCHC (RBC) [Mass/Vol] 31.2 g/dL Normal 30.5-36.0 [facility] Comment on above: Order Comment: Speci men Type: BLOOD SPECIMENOrdering Facility: [facility] Address: [address] [place] [address] Performed By: #### 5 7021-8 ####[facility]ATORYCLIA [id number] [address] [place] MCV (RBC) [Entitic vol] 91.3 fL Normal 80.0-100.0 [facility] Comment on above: Order Comment: Speci men Type: BLOOD SPECIMENOrdering Facility: [facility] Address: [address] [place] [address] Performed By: #### 5 7021-8 ####[facility]ORATORYCLIA [id number] [address] [place] Monocytes (Bld) [#/Vol] 0.53 10*3/uL Normal <0.87 [facility] Comment on above: Order Comment: Speci men Type: BLOOD SPECIMENOrdering Facility: [facility] Address: [address] [place] [address] Performed By: #### 5 7021-8 ####[facility] LABORATORYCLIA [id number] [address] Monocytes/100 WBC (Bld) 6.3 % Normal [facility] Comment on above: Order Comment: Speci men Type: BLOOD SPECIMENOrdering Facility: [facility] Address: [address] [place] [address] Performed By: #### 5 7021-8 ####[facility] LABORATORYCLIA [id number] [address] [place] Neutrophils (Bld) [#/Vol] 5.90 10*3/uL Normal 1.45-7.50 [facility] Comment on above: Order Comment: Speci men Type: BLOOD SPECIMENOrdering Facility: [facility] Address: [address] [place] [address] Performed By: #### 5 7021-8 ####[facility]ATORYCLIA [id number] [address] [place] Neutrophils/100 WBC (Bld) 70.3 % Normal [facility] Comment on above: Order Comment: Speci men Type: BLOOD SPECIMENOrdering Facility: [facility] Address: [address] [address] Performed By: #### 5 7021-8 ####[facility] LABORATORYCLIA [id number] [address] Nucleated RBC (Bld) [#/Vol] 10*3/uL Normal <0.01 [facility] Comment on above: Order Comment: Speci men Type: BLOOD SPECIMENOrdering Facility: [facility] Address: [address] [place] [address] Performed By: #### 5 7021-8 ####[facility] LABORATORYCLIA [id number] [address] Nucleated RBC/100 WBC (Bld) [Ratio] 0.0 /100 WBC Normal [facility] Comment on above: Order Comment: Speci men Type: BLOOD SPECIMENOrdering Facility: [facility] Address: [address] [place] [address] Performed By: #### 5 7021-8 ####[facility] LABORATORYCLIA [id number] [address] STATES [facility] Platelet mean volume (Bld) [Entitic vol] 9.8 fL Normal 9.0-12.7 [facility] Comment on above: Order Comment: Speci men Type: BLOOD SPECIMENOrdering Facility: [facility] Address: [address] [place] [address] Performed By: #### 5 7021-8 ####[facility] LABORATORYCLIA [id number] [address] [place] Platelets (Bld) [#/Vol] 164 10*3/uL Normal 150-400 [facility] Comment on above: Order Comment: Speci men Type: BLOOD SPECIMENOrdering Facility: [facility] Address: [address] [place] [address] Performed By: #### 5 7021-8 ####[facility] LABORATORYCLIA [id number] [place] [address] [place] RBC (Bld) [#/Vol] 2.77 10*6/uL Low 4.20-6.00 [facility] Comment on above: Order Comment: Speci men Type: BLOOD SPECIMENOrdering Facility: [facility] Address: [address] [place] [address] Performed By: #### 5 7021-8 ####[facility] LABORATORYCLIA [id number] [address] [place] WBC (Bld) [#/Vol] 8.39 10*3/uL Normal 3.70-11.00 [facility] Comment on above: Order Comment: Speci men Type: BLOOD SPECIMENOrdering Facility: [facility] Address: [address] [place] [address] Performed By: #### 5 7021-8 ####[facility] LABORATORYCLIA [id number] [address] [place] BRAIN WO IVCONon 08-13-[address] BRAIN WO IVCON Normal [facility] CT BRAIN WO IVCON Normal [facility] Magnesium SerPl-mCncon 08-12 Magnesium [Mass/Vol] 2.0 mg/dL Normal 1.7-2.3 [facility] Comment on above: Order Comment: Speci men Type: BLOOD SPECIMENOrdering Facility: [facility] Address: [address] [place] [address] Performed By: #### 2 4321-2, , 1 ####[facility] LABORATORYCLIA [id number] [address] Phosphate SerPl-mCncon 08-12 Phosphate [Mass/Vol] 2.9 mg/dL Normal 2.7-4.8 [facility] Comment on above: Order Comment: Speci men Type: BLOOD SPECIMENOrdering Facility: [facility] Address: [address] [place] [address] Performed By: #### 2 4321-2, 11300-6, 2777-1 ####[facility] LABORATORYCLIA [id number] [address] OF [facility] THERAPY NTon 08-12-2021 THERAPY NT Normal [facility] THERAPY NT Normal [facility] aPTT PPPon 08-12-2021 aPTT Coag (PPP) [Time] 94.2 s High 23.0-32.4 [facility] Comment on above: Order Comment: Speci men Type: BLOOD SPECIMENOrdering Facility: [facility] Address: [address] [place] [address] Performed By: #### 1 4979-9 ####[facility] LABORATORYCLIA [id number] [address] aPTT Coag (PPP) [Time] 84.4 s High 23.0-32.4 [facility] Comment on above: Order Comment: Speci men Type: BLOOD SPECIMENOrdering Facility: [facility] Address: [address] [place] [address] Performed By: #### 1 4979-9 ####[facility] LABORATORYCLIA [id number] [address] aPTT Coag (PPP) [Time] 71.3 s High 23.0-32.4 [facility] Comment on above: Order Comment: Speci men Type: BLOOD SPECIMENOrdering Facility: [facility] Address: [address] [place] [address] Performed By: #### 1 4979-9 ####[facility] LABORATORYCLIA [id number] [address] ALLIED HEALTHon 08-11-2021 ALLIED HEALTH Normal [facility] CBC W Auto Differential pane l (Bld)on 08-11-2021 Basophils (Bld) [#/Vol] 10*3/uL Normal <0.11 [facility] Comment on above: Order Comment: Speci men Type: BLOOD SPECIMENOrdering Facility: [facility] Address: [address] [place] [address] Performed By: #### 5 7021-8 ####[facility]ORATORYCLIA [id number] [address] Basophils/100 WBC (Bld) 0.2 % Normal [facility] Comment on above: Order Comment: Speci men Type: BLOOD SPECIMENOrdering Facility: [facility] Address: [address] [place] [address] Performed By: #### 5 7021-8 ####[facility] LABORATORYCLIA [id number] [address] Differential cell count method Nom (Bld) Auto Normal [facility] Comment on above: Order Comment: Speci men Type: BLOOD SPECIMENOrdering Facility: [facility] Address: [address] [place] [address] Performed By: #### 5 7021-8 ####[facility] LABORATORYCLIA [id number] [address] [place] Eosinophils (Bld) [#/Vol] 0.16 10*3/uL Normal <0.46 [facility] Comment on above: Order Comment: Speci men Type: BLOOD SPECIMENOrdering Facility: [facility] Address: [address] [place] [address] Performed By: #### 5 7021-8 ####[facility] LABORATORYCLIA [id number] [address] Eosinophils/100 WBC (Bld) 1.8 % Normal [facility] Comment on above: Order Comment: Speci men Type: BLOOD SPECIMENOrdering Facility: [facility] Address: [address] [place] [address] Performed By: #### 5 7021-8 ####[facility] LABORATORYCLIA [id number] [address] Erythrocyte distribution width (RBC) [Ratio] 17.3 % High 11.5-15.0 [facility] Comment on above: Order Comment: Speci men Type: BLOOD SPECIMENOrdering Facility: [facility] Address: [address] [place] [address] Performed By: #### 5 7021-8 ####[facility] LABORATORYCLIA [id number] [address] Hematocrit (Bld) [Volume fraction] 26.6 % Low 39.0-51.0 [facility] Comment on above: Order Comment: Speci men Type: BLOOD SPECIMENOrdering Facility: [facility] Address: [address] [place] [address] Performed By: #### 5 7021-8 ####[facility] LABORATORYCLIA [id number] [address] Hemoglobin (Bld) [Mass/Vol] 8.2 g/dL Low 13.0-17.0 [facility] Comment on above: Order Comment: Speci men Type: BLOOD SPECIMENOrdering Facility: [facility] Address: [address] [place] [address] Performed By: #### 5 7021-8 ####[facility] LABORATORYCLIA [id number] [address] IMMATURE GRAN % 0.6 % Normal [facility] Comment on above: Order Comment: Speci men Type: BLOOD SPECIMENOrdering Facility: [facility] Address: [address] [place] [address] Performed By: #### 5 7021-8 ####[facility] LABORATORYCLIA [id number] [address] IMMATURE GRAN ABS 0.05 k/uL Normal <0.10 [facility] Comment on above: Order Comment: Speci men Type: BLOOD SPECIMENOrdering Facility: [facility] Address: [address] [place] [address] Performed By: #### 5 7021-8 ####[facility] LABORATORYCLIA [id number] [address] Lymphocytes (Bld) [#/Vol] 1.40 10*3/uL Normal 1.00-4.00 [facility] Comment on above: Order Comment: Speci men Type: BLOOD SPECIMENOrdering Facility: [facility] Address: [address] [place] [address] Performed By: #### 5 7021-8 ####[facility] LABORATORYCLIA [id number] [address] Lymphocytes/100 WBC (Bld) 15.8 % Normal [facility] Comment on above: Order Comment: Speci men Type: BLOOD SPECIMENOrdering Facility: [facility] Address: [address] [place] [address] Performed By: #### 5 7021-8 ####[facility] LABORATORYCLIA [id number] [address] MCH (RBC) [Entitic mass] 28.4 pg Normal 26.0-34.0 [facility] Comment on above: Order Comment: Speci men Type: BLOOD SPECIMENOrdering Facility: [facility] Address: [address] [place] [address] Performed By: #### 5 7021-8 ####[facility] LABORATORYCLIA [id number] [address] MCHC (RBC) [Mass/Vol] 30.8 g/dL Normal 30.5-36.0 [facility] Comment on above: Order Comment: Speci men Type: BLOOD SPECIMENOrdering Facility: [facility] Address: [address] [place] [address] Performed By: #### 5 7021-8 ####[facility] LABORATORYCLIA [id number] [address] STATES [facility] MCV (RBC) [Entitic vol] 92.0 fL Normal 80.0-100.0 [facility] Comment on above: Order Comment: Speci men Type: BLOOD SPECIMENOrdering Facility: [facility] Address: [address] [place] [address] Performed By: #### 5 7021-8 ####[facility] LABORATORYCLIA [id number] [place] [address] [place] Monocytes (Bld) [#/Vol] 0.61 10*3/uL Normal <0.87 [facility] Comment on above: Order Comment: Speci men Type: BLOOD SPECIMENOrdering Facility: [facility] Address: [address] [address] Performed By: #### 5 7021-8 ####[facility] LABORATORYCLIA [id number] [place] [address] [place] Monocytes/100 WBC (Bld) 6.9 % Normal [facility] Comment on above: Order Comment: Speci men Type: BLOOD SPECIMENOrdering Facility: [facility] Address: [address] [place] [address] Performed By: #### 5 7021-8 ####[facility] LABORATORYCLIA [id number] [address] [place] Neutrophils (Bld) [#/Vol] 6.62 10*3/uL Normal 1.45-7.50 [facility] Comment on above: Order Comment: Speci men Type: BLOOD SPECIMENOrdering Facility: [facility] Address: [address] [place] [address] Performed By: #### 5 7021-8 ####[facility] LABORATORYCLIA [id number] [address] [place] Neutrophils/100 WBC (Bld) 74.7 % Normal [facility] Comment on above: Order Comment: Speci men Type: BLOOD SPECIMENOrdering Facility: [facility] Address: [address] [address] Performed By: #### 5 7021-8 ####[facility]ORATORYCLIA [id number] [place] [address] [place] Nucleated RBC (Bld) [#/Vol] 10*3/uL Normal <0.01 [facility] Comment on above: Order Comment: Speci men Type: BLOOD SPECIMENOrdering Facility: [facility] Address: [address] [address] Performed By: #### 5 7021-8 ####[facility] LABORATORYCLIA [id number] [address] [place] Nucleated RBC/100 WBC (Bld) [Ratio] 0.0 /100 WBC Normal [facility] Comment on above: Order Comment: Speci men Type: BLOOD SPECIMENOrdering Facility: [facility] Address: [address] [place] [address] Performed By: #### 5 7021-8 ####[facility] LABORATORYCLIA [id number] [address] [place] Platelet mean volume (Bld) [Entitic vol] 9.8 fL Normal 9.0-12.7 [facility] Comment on above: Order Comment: Speci men Type: BLOOD SPECIMENOrdering Facility: [facility] Address: [address] [place] [address] Performed By: #### 5 7021-8 ####[facility] LABORATORYCLIA [id number] [address] [place] Platelets (Bld) [#/Vol] 157 10*3/uL Normal 150-400 [facility] Comment on above: Order Comment: Speci men Type: BLOOD SPECIMENOrdering Facility: [facility] Address: [address] [place] [address] Performed By: #### 5 7021-8 ####[facility] LABORATORYCLIA [id number] [address] [place] RBC (Bld) [#/Vol] 2.89 10*6/uL Low 4.20-6.00 [facility] Comment on above: Order Comment: Speci men Type: BLOOD SPECIMENOrdering Facility: [facility] Address: [address] [place] [address] Performed By: #### 5 7021-8 ####[facility] LABORATORYCLIA [id number] [address] [place] WBC (Bld) [#/Vol] 8.86 10*3/uL Normal 3.70-11.00 [facility] Comment on above: Order Comment: Speci men Type: BLOOD SPECIMENOrdering Facility: [facility] Address: [address] [place] [address] Performed By: #### 5 7021-8 ####[facility] LABORATORYCLIA [id number] [address] CBC panel Auto (Bld)on 08-11 Erythrocyte distribution width (RBC) [Ratio] 17.2 % High 11.5-15.0 [facility] Comment on above: Order Comment: Speci men Type: BLOOD SPECIMENOrdering Facility: [facility] Address: [address] [place] [address] Performed By: #### 5 8410-2 ####[facility] LABORATORYCLIA [id number] [address] STATES OF [facility] Hematocrit (Bld) [Volume fraction] 27.0 % Low 39.0-51.0 [facility] Comment on above: Order Comment: Speci men Type: BLOOD SPECIMENOrdering Facility: [facility] Address: [address] [place] [address] Performed By: #### 5 8410-2 ####[facility] LABORATORYCLIA [id number] [address] Hemoglobin (Bld) [Mass/Vol] 8.3 g/dL Low 13.0-17.0 [facility] Comment on above: Order Comment: Speci men Type: BLOOD SPECIMENOrdering Facility: [facility] Address: [address] [place] [address] Performed By: #### 5 8410-2 ####[facility] LABORATORYCLIA [id number] [address] STATES [facility] MCH (RBC) [Entitic mass] 28.7 pg Normal 26.0-34.0 [facility] Comment on above: Order Comment: Speci men Type: BLOOD SPECIMENOrdering Facility: [facility] Address: [address] [place] [address] Performed By: #### 5 8410-2 ####[facility] LABORATORYCLIA [id number] [address] STATES [facility] MCHC (RBC) [Mass/Vol] 30.7 g/dL Normal 30.5-36.0 [facility] Comment on above: Order Comment: Speci men Type: BLOOD SPECIMENOrdering Facility: [facility] Address: [address] [place] [address] Performed By: #### 5 8410-2 ####[facility] LABORATORYCLIA [id number] [address] MCV (RBC) [Entitic vol] 93.4 fL Normal 80.0-100.0 [facility] Comment on above: Order Comment: Speci men Type: BLOOD SPECIMENOrdering Facility: [facility] Address: [address] [place] [address] Performed By: #### 5 8410-2 ####[facility] LABORATORYCLIA [id number] [address] Nucleated RBC (Bld) [#/Vol] 10*3/uL Normal <0.01 [facility] Comment on above: Order Comment: Speci men Type: BLOOD SPECIMENOrdering Facility: [facility] Address: [address] [place] [address] Performed By: #### 5 8410-2 ####[facility] LABORATORYCLIA [id number] [address] [place] Platelet mean volume (Bld) [Entitic vol] 9.8 fL Normal 9.0-12.7 [facility] Comment on above: Order Comment: Speci men Type: BLOOD SPECIMENOrdering Facility: [facility] Address: [address] [place] [address] Performed By: #### 5 8410-2 ####[facility] LABORATORYCLIA [id number] [address] [place] Platelets (Bld) [#/Vol] 169 10*3/uL Normal 150-400 [facility] Comment on above: Order Comment: Speci men Type: BLOOD SPECIMENOrdering Facility: [facility] Address: [address] [place] [address] Performed By: #### 5 8410-2 ####[facility] LABORATORYCLIA [id number] [address] RBC (Bld) [#/Vol] 2.89 10*6/uL Low 4.20-6.00 [facility] Comment on above: Order Comment: Speci men Type: BLOOD SPECIMENOrdering Facility: [facility] Address: [address] [place] [address] Performed By: #### 5 8410-2 ####[facility] LABORATORYCLIA [id number] [address] WBC (Bld) [#/Vol] 9.03 10*3/uL Normal 3.70-11.00 [facility] Comment on above: Order Comment: Shira francia Type: BLOOD SPECIMENOrdering Facility: [facility] Address: [address] [place] [address] Performed By: #### 5 8410-2 ####[facility] LABORATORYCLIA [id number] [address] BRAIN WO IVCONon 08-12-19 CT BRAIN WO IVCON Normal [facility] PT panel Coag (PPP)on 2021 INR Coag (PPP) [Relative time] 1.0 {INR} Normal 0.9-1.3 [facility] Comment on above: Order Comment: Shira feldman Type: BLOOD SPECIMENOrdering Facility: [facility] Address: [address] [place] [address] Result Comment: Yris min K Antagonist (VKA) Therapeutic Range: INR 2 to 3 (Target INR of 2.5)Note: For patients treated with VKA drugs, such as warfarin, the [employer] 2012 Guideline recommends [...] al. Chest 2012, 141:7S-47SNishimura RA, et al. [facility] 2017, 70: 252-289 Performed By: #### 1 4979-9, 89082-9 ####[facility] LABORATORYCLIA [id number] [address] STATES OF [facility] PT Coag (PPP) [Time] 11.4 s Normal 9.7-13.0 [facility] Comment on above: Order Comment: Speci men Type: BLOOD SPECIMENOrdering Facility: [facility] Address: [address] [address] Performed By: #### 1 4979-9, 47260-5 ####[facility] LABORATORYCLIA [id number] [address] [place] THERAPY NTon 08-11-2021 THERAPY NT Normal [facility] US DVT LOWER BILon 2 US DVT LOWER RAINER Normal [facility] US DVT UPPER BILon 2 US DVT UPPER RAINER Normal [facility] aPTT PPPon 08-11-2021 aPTT Coag (PPP) [Time] 26.9 s Normal 23.0-32.4 [facility] Comment on above: Order Comment: Speci men Type: BLOOD SPECIMENOrdering Facility: [facility] Address: [address] [address] Performed By: #### 1 4979-9, 47388-0 ####[facility] LABORATORYCLIA [id number] [place] [address] [place] Basic metabolic 2000 panelon 08-10-2021 Anion gap [Moles/Vol] 11 mmol/L Normal 9-18 [facility] Comment on above: Order Comment: Speci men Type: BLOOD SPECIMENOrdering Facility: [facility] Address: [address] [place] [address] Performed By: #### 2 4321-2 ####[facility]ATORYCLIA [id number] [address] [place] Calcium [Mass/Vol] 8.7 mg/dL Normal 8.5-10.2 [facility] Comment on above: Order Comment: Speci men Type: BLOOD SPECIMENOrdering Facility: [facility] Address: [address] [place] [address] Performed By: #### 2 4321-2 ####[facility] LABORATORYCLIA [id number] [place] [address] [place] Chloride [Moles/Vol] 98 mmol/L Normal 97-105 [facility] Comment on above: Order Comment: Speci men Type: BLOOD SPECIMENOrdering Facility: [facility] Address: [address] [place] [address] Performed By: #### 2 4321-2 ####[facility] LABORATORYCLIA [id number] [place] [address] [place] CO2 [Moles/Vol] 28 mmol/L Normal 22-30 [facility] Comment on above: Order Comment: Speci men Type: BLOOD SPECIMENOrdering Facility: [facility] Address: [address] [place] [address] Performed By: #### 2 4321-2 ####[facility]ORATORYCLIA [id number] [address] [place] Creatinine [Mass/Vol] 0.59 mg/dL Low 0.73-1.22 [facility] Comment on above: Order Comment: Speci men Type: BLOOD SPECIMENOrdering Facility: [facility] Address: [address] [place] [address] Performed By: #### 2 4321-2 ####[facility] LABORATORYCLIA [id number] [address] [place] ESTIMATED GLOMERULAR FILTRATION RATE 105 mL/min/1.73m??? Normal >=60 [facility] Comment on above: Order Comment: Shira feldman Type: BLOOD SPECIMENOrdering Facility: [facility] Address: [address] [place] [address] Result Comment: Luzmaria mated Glomerular Filtration Rate [...] By: #### 2 4321-2 ####[facility] LABORATORYCLIA [id number] [place] [address] [place] Glucose [Mass/Vol] 118 mg/dL High 74-99 [facility] Comment on above: Order Comment: Shira feldman Type: BLOOD SPECIMENOrdering Facility: [facility] Address: [address] [place] [address] Result Comment: The [place] Diabetes Association (ADA) provides guidance for cutoff [...] Standards of Medical Care in Diabetes 2016, Australian Diabetes Association. Diabetes Care. 2016.39(Suppl 1). Performed By: #### 2 4321-2 ####[facility] LABORATORYCLIA [id number] [place] [address] [place] Potassium [Moles/Vol] 3.7 mmol/L Normal 3.7-5.1 [facility] Comment on above: Order Comment: Shira feldman Type: BLOOD SPECIMENOrdering Facility: [facility] Address: [address] [place] [address] Performed By: #### 2 4321-2 ####[facility]ATORYCLIA [id number] [place] [address] [place] Sodium [Moles/Vol] 137 mmol/L Normal 136-144 [facility] Comment on above: Order Comment: Speci men Type: BLOOD SPECIMENOrdering Facility: [facility] Address: [address] [place] [address] Performed By: #### 2 4321-2 ####[facility] LABORATORYCLIA [id number] [place] [address] [place] Urea nitrogen [Mass/Vol] 23 mg/dL Normal 9-24 [facility] Comment on above: Order Comment: Speci men Type: BLOOD SPECIMENOrdering Facility: [facility] Address: [address] [place] [address] Performed By: #### 2 4321-2 ####[facility] LABORATORYCLIA [id number] [place] [address] [place] Anion gap [Moles/Vol] 17 mmol/L Normal 9-18 [facility] Comment on above: Order Comment: Speci men Type: BLOOD SPECIMENOrdering Facility: [facility] Address: [address] [place] [address] Performed By: #### 1 9123-9, 2777-1, 82300-6 ####[facility]ORATORYCLIA [id number] [place] [address] [place] Calcium [Mass/Vol] 7.7 mg/dL Low 8.5-10.2 [facility] Comment on above: Order Comment: Speci men Type: BLOOD SPECIMENOrdering Facility: [facility] Address: [address] [place] [address] Performed By: #### 1 9123-9, 2777-1, 06782-6 ####[facility]ORATORYCLIA [id number] [place] [address] [place] Chloride [Moles/Vol] 86 mmol/L Low 97-105 [facility] Comment on above: Order Comment: Speci men Type: BLOOD SPECIMENOrdering Facility: [facility] Address: [address] [place] [address] Performed By: #### 1 9123-9, 2777, ####[facility]ORATORYCLIA [id number] [address] CO2 [Moles/Vol] 24 mmol/L Normal 22-30 [facility] Comment on above: Order Comment: Speci men Type: BLOOD SPECIMENOrdering Facility: [facility] Address: [address] [place] [address] Performed By: #### 1 9123-9, 27711-04, ####[facility]ITALCLIA [id number] [address] OF [facility] Creatinine [Mass/Vol] 0.53 mg/dL Low 0.73-1.22 [facility] Comment on above: Order Comment: Speci men Type: BLOOD SPECIMENOrdering Facility: [facility] Address: [address] [place] [address] Performed By: #### 1 9123-9, 2776-05, ####[facility]ITALCLIA [id number] [address] ESTIMATED GLOMERULAR FILTRATION RATE 108 mL/min/1.73m??? Normal >=60 [facility] Comment on above: Order Comment: Speci men Type: BLOOD SPECIMENOrdering Facility: [facility] Address: [address] [place] [address] Result Comment: Luzmaria mated Glomerular Filtration Rate [...] GFR. Performed By: #### 1 9123-9, 27711-04, 11767-9 ####[facility] LABORATORYCLIA [id number] [place] [address] [place] Glucose [Mass/Vol] 455 mg/dL High 74-99 [facility] Comment on above: Order Comment: Speci men Type: BLOOD SPECIMENOrdering Facility: [facility] Address: [address] [place] [address] Result Comment: The [place] Diabetes Association (ADA) provides guidance for cutoff [...] Standards of Medical Care in Diabetes 2016, [place] Diabetes Association. Diabetes Care. 2016.39(Suppl 1). Performed By: #### 1 9123-9, 2777, 88926-1 ####[facility]ORATORYCLIA [id number] [place] [address] [place] Potassium [Moles/Vol] 3.4 mmol/L Low 3.7-5.1 [facility] Comment on above: Order Comment: Speci men Type: BLOOD SPECIMENOrdering Facility: [facility] Address: [address] [place] [address] Performed By: #### 1 9123-9, 2777, 05322-8 ####[facility] LABORATORYCLIA [id number] [place] [address] [place] Sodium [Moles/Vol] 127 mmol/L Low 136-144 [facility] Comment on above: Order Comment: Johni men Type: BLOOD SPECIMENOrdering Facility: [facility] Address: [address] [place] [address] Performed By: #### 1 9123-9, 27711-04, 18190-1 ####[facility]ORATORYCLIA [id number] [address] [place] Urea nitrogen [Mass/Vol] 21 mg/dL Normal 9-24 [facility] Comment on above: Order Comment: Speci men Type: BLOOD SPECIMENOrdering Facility: [facility] Address: [address] [place] [address] Performed By: #### 1 9123-9, 2777-1, 06536-7 ####[facility] LABORATORYCLIA [id number] [address] [place] CASE MANAGEMon 08-10-2021 CASE MANAGEM Normal [facility] CBC W Auto Differential pane l (Bld)on 08-10-2021 Basophils (Bld) [#/Vol] 0.04 10*3/uL Normal <0.11 [facility] Comment on above: Order Comment: Speci men Type: BLOOD SPECIMENOrdering Facility: [facility] Address: [address] [place] [address] Performed By: #### 5 7021-8 ####[facility] LABORATORYCLIA [id number] [address] [place] Basophils/100 WBC (Bld) 0.4 % Normal [facility] Comment on above: Order Comment: Speci men Type: BLOOD SPECIMENOrdering Facility: [facility] Address: [address] [place] [address] Performed By: #### 5 7021-8 ####[facility] LABORATORYCLIA [id number] [address] Differential cell count method Nom (Bld) Auto Normal [facility] Comment on above: Order Comment: Speci men Type: BLOOD SPECIMENOrdering Facility: [facility] Address: [address] [place] [address] Performed By: #### 5 7021-8 ####[facility] LABORATORYCLIA [id number] [place] [address] [place] Eosinophils (Bld) [#/Vol] 0.11 10*3/uL Normal <0.46 [facility] Comment on above: Order Comment: Speci men Type: BLOOD SPECIMENOrdering Facility: [facility] Address: [address] [place] [address] Performed By: #### 5 7021-8 ####[facility] LABORATORYCLIA [id number] [address] Eosinophils/100 WBC (Bld) 1.1 % Normal [facility] Comment on above: Order Comment: Speci men Type: BLOOD SPECIMENOrdering Facility: [facility] Address: [address] [place] [address] Performed By: #### 5 7021-8 ####[facility]ORATORYCLIA [id number] [address] [place] Erythrocyte distribution width (RBC) [Ratio] 17.2 % High 11.5-15.0 [facility] Comment on above: Order Comment: Speci men Type: BLOOD SPECIMENOrdering Facility: [facility] Address: [address] [place] [address] Performed By: #### 5 7021-8 ####[facility] LABORATORYCLIA [id number] [address] [place] Hematocrit (Bld) [Volume fraction] 25.5 % Low 39.0-51.0 [facility] Comment on above: Order Comment: Speci men Type: BLOOD SPECIMENOrdering Facility: [facility] Address: [address] [place] [address] Performed By: #### 5 7021-8 ####[facility]ORATORYCLIA [id number] [address] [place] Hemoglobin (Bld) [Mass/Vol] 7.9 g/dL Low 13.0-17.0 [facility] Comment on above: Order Comment: Speci men Type: BLOOD SPECIMENOrdering Facility: [facility] Address: [address] [place] [address] Performed By: #### 5 7021-8 ####[facility]ORATORYCLIA [id number] [address] IMMATURE GRAN % 0.4 % Normal [facility] Comment on above: Order Comment: Speci men Type: BLOOD SPECIMENOrdering Facility: [facility] Address: [address] [place] [address] Performed By: #### 5 7021-8 ####[facility]ORATORYCLIA [id number] [address] IMMATURE GRAN ABS 0.04 k/uL Normal <0.10 [facility] Comment on above: Order Comment: Speci men Type: BLOOD SPECIMENOrdering Facility: [facility] Address: [address] [place] [address] Performed By: #### 5 7021-8 ####[facility]ORATORYCLIA [id number] [address] [place] Lymphocytes (Bld) [#/Vol] 1.66 10*3/uL Normal 1.00-4.00 [facility] Comment on above: Order Comment: Speci men Type: BLOOD SPECIMENOrdering Facility: [facility] Address: [address] [place] [address] Performed By: #### 5 7021-8 ####[facility]ORATORYCLIA [id number] [address] Lymphocytes/100 WBC (Bld) 16.2 % Normal [facility] Comment on above: Order Comment: Speci men Type: BLOOD SPECIMENOrdering Facility: [facility] Address: [address] [place] [address] Performed By: #### 5 7021-8 ####[facility]ORATORYCLIA [id number] [address] [place] MCH (RBC) [Entitic mass] 28.5 pg Normal 26.0-34.0 [facility] Comment on above: Order Comment: Speci men Type: BLOOD SPECIMENOrdering Facility: [facility] Address: [address] [place] [address] Performed By: #### 5 7021-8 ####[facility] LABORATORYCLIA [id number] [address] STATES [facility] MCHC (RBC) [Mass/Vol] 31.0 g/dL Normal 30.5-36.0 [facility] Comment on above: Order Comment: Speci men Type: BLOOD SPECIMENOrdering Facility: [facility] Address: [address] [place] [address] Performed By: #### 5 7021-8 ####[facility]ORATORYCLIA [id number] [address] MCV (RBC) [Entitic vol] 92.1 fL Normal 80.0-100.0 [facility] Comment on above: Order Comment: Speci men Type: BLOOD SPECIMENOrdering Facility: [facility] Address: [address] [place] [address] Performed By: #### 5 7021-8 ####[facility]ORATORYCLIA [id number] [address] Monocytes (Bld) [#/Vol] 0.51 10*3/uL Normal <0.87 [facility] Comment on above: Order Comment: Speci men Type: BLOOD SPECIMENOrdering Facility: [facility] Address: [address] [place] [address] Performed By: #### 5 7021-8 ####[facility]ORATORYCLIA [id number] [address] Monocytes/100 WBC (Bld) 5.0 % Normal [facility] Comment on above: Order Comment: Speci men Type: BLOOD SPECIMENOrdering Facility: [facility] Address: [address] [place] [address] Performed By: #### 5 7021-8 ####[facility]ORATORYCLIA [id number] [address] [place] Neutrophils (Bld) [#/Vol] 7.91 10*3/uL High 1.45-7.50 [facility] Comment on above: Order Comment: Speci men Type: BLOOD SPECIMENOrdering Facility: [facility] Address: [address] [address] Performed By: #### 5 7021-8 ####[facility]ORATORYCLIA [id number] [address] Neutrophils/100 WBC (Bld) 76.9 % Normal [facility] Comment on above: Order Comment: Speci men Type: BLOOD SPECIMENOrdering Facility: [facility] Address: [address] [place] [address] Performed By: #### 5 7021-8 ####[facility]ORATORYCLIA [id number] [address] Nucleated RBC (Bld) [#/Vol] 10*3/uL Normal <0.01 [facility] Comment on above: Order Comment: Speci men Type: BLOOD SPECIMENOrdering Facility: [facility] Address: [address] [place] [address] Performed By: #### 5 7021-8 ####[facility]ORATORYCLIA [id number] [address] Nucleated RBC/100 WBC (Bld) [Ratio] 0.0 /100 WBC Normal [facility] Comment on above: Order Comment: Speci men Type: BLOOD SPECIMENOrdering Facility: [facility] Address: [address] [place] [address] Performed By: #### 5 7021-8 ####[facility] LABORATORYCLIA [id number] [address] Platelet mean volume (Bld) [Entitic vol] 10.3 fL Normal 9.0-12.7 [facility] Comment on above: Order Comment: Speci men Type: BLOOD SPECIMENOrdering Facility: [facility] Address: [address] [place] [address] Performed By: #### 5 7021-8 ####[facility]ORATORYCLIA [id number] [address] Platelets (Bld) [#/Vol] 152 10*3/uL Normal 150-400 [facility] Comment on above: Order Comment: Speci men Type: BLOOD SPECIMENOrdering Facility: [facility] Address: [address] [place] [address] Performed By: #### 5 7021-8 ####[facility]ORATORYCLIA [id number] [place] [address] [place] RBC (Bld) [#/Vol] 2.77 10*6/uL Low 4.20-6.00 [facility] Comment on above: Order Comment: Speci men Type: BLOOD SPECIMENOrdering Facility: [facility] Address: [address] [place] [address] Performed By: #### 5 7021-8 ####[facility]ORATORYCLIA [id number] [address] WBC (Bld) [#/Vol] 10.27 10*3/uL Normal 3.70-11.00 [facility] Comment on above: Order Comment: Speci men Type: BLOOD SPECIMENOrdering Facility: [facility] Address: [address] [place] [address] Performed By: #### 5 7021-8 ####[facility] LABORATORYCLIA [id number] [address] [place] Magnesium SerPl-mCncon 08-10 Magnesium [Mass/Vol] 1.8 mg/dL Normal 1.7-2.3 [facility] Comment on above: Order Comment: Speci men Type: BLOOD SPECIMENOrdering Facility: [facility] Address: [address] [place] [address] Performed By: #### 1 9123-9, 2777-1, 79973-3 ####[facility]ORATORYCLIA [id number] [address] [place] NURSING PROGon 08-10-2021 NURSING PROG Normal [facility] NURSING PROG Normal [facility] NUTRITIONon 08-10-2021 NUTRITION Normal [facility] Phosphate SerPl-mCncon 08-10 Phosphate [Mass/Vol] 3.7 mg/dL Normal 2.7-4.8 [facility] Comment on above: Order Comment: Speci men Type: BLOOD SPECIMENOrdering Facility: [facility] Address: [address] [place] [address] Performed By: #### 1 9123-9, 2777-1, 07041-5 ####[facility]ORATORYCLIA [id number] [place] [address] [place] ALLIED HEALTHon 08-09-2021 [...] Comment: Speci men Type: BLOOD SPECIMENOrdering Facility: [facility] Address: [address] [place] [address] Performed By: #### 2 4321-2, , 2776-05 ####[facility]ORATORYCLIA [id number] [place] [address] [place] Calcium [Mass/Vol] 9.2 mg/dL Normal 8.5-10.2 [facility] Comment on above: Order Comment: Speci men Type: BLOOD SPECIMENOrdering Facility: [facility] Address: [address] [place] [address] Performed By: #### 2 4321-2, , 2776-05 ####[facility]ORATORYCLIA [id number] [place] [address] [place] Chloride [Moles/Vol] 97 mmol/L Normal 97-105 [facility] Comment on above: Order Comment: Speci men Type: BLOOD SPECIMENOrdering Facility: [facility] Address: [address] [place] [address] Performed By: #### 2 4321-2, , 2776-05 ####[facility]ITALCLIA [id number] [address] CO2 [Moles/Vol] 30 mmol/L Normal 22-30 [facility] Comment on above: Order Comment: Speci men Type: BLOOD SPECIMENOrdering Facility: [facility] Address: [address] [place] [address] Performed By: #### 2 4321-2, , 2776-05 ####[facility]ITALIA [id number] [address] Creatinine [Mass/Vol] 0.51 mg/dL Low 0.73-1.22 [facility] Comment on above: Order Comment: Speci men Type: BLOOD SPECIMENOrdering Facility: [facility] Address: [address] [place] [address] Performed By: #### 2 4321-2, , 2776-05 ####[facility]ITALIA [id number] [address] ESTIMATED GLOMERULAR FILTRATION RATE 110 mL/min/1.73m??? Normal >=60 [facility] Comment on above: Order Comment: Speci men Type: BLOOD SPECIMENOrdering Facility: [facility] Address: [address] [place] [address] Result Comment: Luzmaria mated Glomerular Filtration Rate [...] 2 4321-2, , 2776-05 ####[facility]ORATORYCLIA [id number] [place] [address] [place] Glucose [Mass/Vol] 106 mg/dL High 74-99 [facility] Comment on above: Order Comment: Shira men Type: BLOOD SPECIMENOrdering Facility: [facility] Address: [address] [place], [place] [id number] Result Comment: The [place] Diabetes Association (ADA) provides guidance for cutoff [...] Standards of Medical Care in Diabetes 2016, [place] Diabetes Association. Diabetes Care. 2016.39(Suppl 1). Performed By: #### 2 4321-2, , 2776-05 ####[facility] LABORATORYCLIA [id number] [place] [address] [place] Potassium [Moles/Vol] 4.1 mmol/L Normal 3.7-5.1 [facility] Comment on above: Order Comment: Shira feldman Type: BLOOD SPECIMENOrdering Facility: [facility] Address: [address] [id number] Performed By: #### 2 4321-2, , 2776-05 ####[facility]ORATORYCLIA [id number] [place] [address] [place] Sodium [Moles/Vol] 135 mmol/L Low 136-144 [facility] Comment on above: Order Comment: Shira feldman Type: BLOOD SPECIMENOrdering Facility: [facility] Address: [address] [id number] Performed By: #### 2 4321-2, , 2776-05 ####[facility] LABORATORYCLIA [id number] [address] STATES [facility] Urea nitrogen [Mass/Vol] 26 mg/dL High 9-24 [facility] Comment on above: Order Comment: Speci men Type: BLOOD SPECIMENOrdering Facility: [facility] Address: [address] [place] [address] Performed By: #### 2 4321-2, 26378-7, 2777-1 ####[facility] LABORATORYCLIA [id number] [address] STATES OF [facility] CBC W Auto Differential pane l (Bld)on 08-09-2021 Basophils (Bld) [#/Vol] 0.06 10*3/uL Normal <0.11 [facility] Comment on above: Order Comment: Speci men Type: BLOOD SPECIMENOrdering Facility: [facility] Address: [address] [place] [address] Performed By: #### 5 7021-8 ####[facility] LABORATORYCLIA [id number] [address] STATES OF [facility] Basophils/100 WBC (Bld) 0.5 % Normal [facility] Comment on above: Order Comment: Speci men Type: BLOOD SPECIMENOrdering Facility: [facility] Address: [address] [place] [address] Performed By: #### 5 7021-8 ####[facility] LABORATORYCLIA [id number] [address] Differential cell count method Nom (Bld) Auto Normal [facility] Comment on above: Order Comment: Speci men Type: BLOOD SPECIMENOrdering Facility: [facility] Address: [address] [place] [address] Performed By: #### 5 7021-8 ####[facility] LABORATORYCLIA [id number] [address] [place] Eosinophils (Bld) [#/Vol] 0.42 10*3/uL Normal <0.46 [facility] Comment on above: Order Comment: Speci men Type: BLOOD SPECIMENOrdering Facility: [facility] Address: [address] [place] [address] Performed By: #### 5 7021-8 ####[facility] LABORATORYCLIA [id number] [address] STATES [facility] Eosinophils/100 WBC (Bld) 3.8 % Normal [facility] Comment on above: Order Comment: Speci men Type: BLOOD SPECIMENOrdering Facility: [facility] Address: [address] [place] [address] Performed By: #### 5 7021-8 ####[facility] LABORATORYCLIA [id number] [address] Erythrocyte distribution width (RBC) [Ratio] 17.6 % High 11.5-15.0 [facility] Comment on above: Order Comment: Speci men Type: BLOOD SPECIMENOrdering Facility: [facility] Address: [address] [place] [address] Performed By: #### 5 7021-8 ####[facility] LABORATORYCLIA [id number] [address] Hematocrit (Bld) [Volume fraction] 29.3 % Low 39.0-51.0 [facility] Comment on above: Order Comment: Speci men Type: BLOOD SPECIMENOrdering Facility: [facility] Address: [address] [place] [address] Performed By: #### 5 7021-8 ####[facility] LABORATORYCLIA [id number] [address] [place] Hemoglobin (Bld) [Mass/Vol] 9.0 g/dL Low 13.0-17.0 [facility] Comment on above: Order Comment: Speci men Type: BLOOD SPECIMENOrdering Facility: [facility] Address: [address] [place] [address] Performed By: #### 5 7021-8 ####[facility] LABORATORYCLIA [id number] [address] [place] IMMATURE GRAN % 0.5 % Normal [facility] Comment on above: Order Comment: Speci men Type: BLOOD SPECIMENOrdering Facility: [facility] Address: [address] [place] [address] Performed By: #### 5 7021-8 ####[facility] LABORATORYCLIA [id number] [address] [place] OF [facility] IMMATURE GRAN ABS 0.05 k/uL Normal <0.10 [facility] Comment on above: Order Comment: Speci men Type: BLOOD SPECIMENOrdering Facility: [facility] Address: [address] [place] [address] Performed By: #### 5 7021-8 ####[facility] LABORATORYCLIA [id number] [address] Lymphocytes (Bld) [#/Vol] 2.00 10*3/uL Normal 1.00-4.00 [facility] Comment on above: Order Comment: Speci men Type: BLOOD SPECIMENOrdering Facility: [facility] Address: [address] [place] [address] Performed By: #### 5 7021-8 ####[facility] LABORATORYCLIA [id number] [address] Lymphocytes/100 WBC (Bld) 18.1 % Normal [facility] Comment on above: Order Comment: Speci men Type: BLOOD SPECIMENOrdering Facility: [facility] Address: [address] [place] [address] Performed By: #### 5 7021-8 ####[facility] LABORATORYCLIA [id number] [address] STATES [facility] MCH (RBC) [Entitic mass] 28.1 pg Normal 26.0-34.0 [facility] Comment on above: Order Comment: Speci men Type: BLOOD SPECIMENOrdering Facility: [facility] Address: [address] [place] [address] Performed By: #### 5 7021-8 ####[facility] LABORATORYCLIA [id number] [address] MCHC (RBC) [Mass/Vol] 30.7 g/dL Normal 30.5-36.0 [facility] Comment on above: Order Comment: Speci men Type: BLOOD SPECIMENOrdering Facility: [facility] Address: [address] [place] [address] Performed By: #### 5 7021-8 ####[facility] LABORATORYCLIA [id number] [address] [place] MCV (RBC) [Entitic vol] 91.6 fL Normal 80.0-100.0 [facility] Comment on above: Order Comment: Speci men Type: BLOOD SPECIMENOrdering Facility: [facility] Address: [address] [place] [address] Performed By: #### 5 7021-8 ####[facility] LABORATORYCLIA [id number] [address] [place] Monocytes (Bld) [#/Vol] 0.68 10*3/uL Normal <0.87 [facility] Comment on above: Order Comment: Speci men Type: BLOOD SPECIMENOrdering Facility: [facility] Address: [address] [place] [address] Performed By: #### 5 7021-8 ####[facility] LABORATORYCLIA [id number] [address] Monocytes/100 WBC (Bld) 6.2 % Normal [facility] Comment on above: Order Comment: Speci men Type: BLOOD SPECIMENOrdering Facility: [facility] Address: [address] [place] [address] Performed By: #### 5 7021-8 ####[facility] LABORATORYCLIA [id number] [address] [place] Neutrophils (Bld) [#/Vol] 7.82 10*3/uL High 1.45-7.50 [facility] Comment on above: Order Comment: Speci men Type: BLOOD SPECIMENOrdering Facility: [facility] Address: [address] [place] [address] Performed By: #### 5 7021-8 ####[facility] LABORATORYCLIA [id number] [address] Neutrophils/100 WBC (Bld) 70.9 % Normal [facility] Comment on above: Order Comment: Speci men Type: BLOOD SPECIMENOrdering Facility: [facility] Address: [address] [place] [address] Performed By: #### 5 7021-8 ####[facility] LABORATORYCLIA [id number] [address] [place] Nucleated RBC (Bld) [#/Vol] 10*3/uL Normal <0.01 [facility] Comment on above: Order Comment: Speci men Type: BLOOD SPECIMENOrdering Facility: [facility] Address: [address] [place] [address] Performed By: #### 5 7021-8 ####[facility] LABORATORYCLIA [id number] [address] Nucleated RBC/100 WBC (Bld) [Ratio] 0.0 /100 WBC Normal [facility] Comment on above: Order Comment: Speci men Type: BLOOD SPECIMENOrdering Facility: [facility] Address: [address] [place] [address] Performed By: #### 5 7021-8 ####[facility] LABORATORYCLIA [id number] [address] [place] Platelet mean volume (Bld) [Entitic vol] 10.1 fL Normal 9.0-12.7 [facility] Comment on above: Order Comment: Speci men Type: BLOOD SPECIMENOrdering Facility: [facility] Address: [address] [place] [address] Performed By: #### 5 7021-8 ####[facility] LABORATORYCLIA [id number] [address] [place] Platelets (Bld) [#/Vol] 160 10*3/uL Normal 150-400 [facility] Comment on above: Order Comment: Speci men Type: BLOOD SPECIMENOrdering Facility: [facility] Address: [address] [place] [address] Performed By: #### 5 7021-8 ####[facility] LABORATORYCLIA [id number] [address] OF [facility] RBC (Bld) [#/Vol] 3.20 10*6/uL Low 4.20-6.00 [facility] Comment on above: Order Comment: Speci men Type: BLOOD SPECIMENOrdering Facility: [facility] Address: [address] [place] [address] Performed By: #### 5 7021-8 ####[facility] LABORATORYCLIA [id number] [address] WBC (Bld) [#/Vol] 11.03 10*3/uL High 3.70-11.00 [facility] Comment on above: Order Comment: Speci men Type: BLOOD SPECIMENOrdering Facility: [facility] Address: [address] [place] [address] Performed By: #### 5 7021-8 ####[facility] LABORATORYCLIA [id number] [address] CONSULT PROGon 08-09-2021 CONSULT PROG Normal [facility] CT BRAIN WO IVCONon 08-10-[address] BRAIN WO IVCON Normal [facility] CT BRAIN WO IVCON Normal [facility] Magnesium SerPl-mCncon 08-09 Magnesium [Mass/Vol] 2.0 mg/dL Normal 1.7-2.3 [facility] Comment on above: Order Comment: Speci men Type: BLOOD SPECIMENOrdering Facility: [facility] Address: [address] [place] [address] Performed By: #### 2 4321-2, 15376-8, 2777-1 ####[facility]ORATORYCLIA [id number] [address] NURSING PROGon 08-09-2021 NURSING PROG Normal [facility] OPERATIVE NOon 08-09-2021 OPERATIVE NO Normal [facility] PT panel Coag (PPP)on 2021 INR Coag (PPP) [Relative time] 1.1 {INR} Normal 0.9-1.3 [facility] Comment on above: Order Comment: Shira feldman Type: BLOOD SPECIMENOrdering Facility: [facility] Address: [address] [place], [place] [address] Result Comment: Yris min K Antagonist (VKA) Therapeutic Range: INR 2 to 3 (Target INR of 2.5)Note: For patients treated with VKA drugs, such as warfarin, the [employer] 2012 Guideline recommends [...] al. Chest 2012, 141:7S-47SNishimura RA, et al. [facility] 2017, 70: 252-289 Performed By: #### 3 4528-0, 92818-8 ####[facility] LABORATORYCLIA [id number] [place] [address] [place] PT Coag (PPP) [Time] 11.7 s Normal 9.7-13.0 [facility] Comment on above: Order Comment: Speci men Type: BLOOD SPECIMENOrdering Facility: [facility] Address: [address] [place] [address] Performed By: #### 3 4528-0, 87993-5 ####[facility] LABORATORYCLIA [id number] [place] [id number] [place] Phosphate SerPl-mCncon 08-09 Phosphate [Mass/Vol] 4.0 mg/dL Normal 2.7-4.8 [facility] Comment on above: Order Comment: Speci men Type: BLOOD SPECIMENOrdering Facility: [facility] Address: [address] [place] [address] Performed By: #### 2 4321-2, 43555-4, 2777-1 ####[facility] LABORATORYCLIA [id number] [address] OF [facility] THERAPY NTon 08-09-2021 THERAPY NT Normal [facility] THERAPY NT Normal [facility] TYPE AND SCREENon 08-09-2021 ABO O [facility] Comment on above: Order Comment: Speci men Type: BLOOD SPECIMENOrdering Facility: [facility] Address: [address] [place] [address] Performed By: #### T SCR ####[facility] BLOOD BANKCLIA [id number] [address] HISTORICAL AB SCR STATUS Negative [facility] Comment on above: Order Comment: Speci men Type: BLOOD SPECIMENOrdering Facility: [facility] Address: [address] [place] [address] Performed By: #### T SCR ####[facility] BLOOD BANKCLIA [id number] [address] [facility] Rh Nom (Bld) Positive [facility] Comment on above: Order Comment: Speci men Type: BLOOD SPECIMENOrdering Facility: [facility] Address: [address] [place] [address] Performed By: #### T SCR ####[facility] BLOOD BANKCLIA [id number] [address] [facility] TYPE AND SCREEN EXPIRATION 08/12/2021 23:59 Normal [facility] Comment on above: Order Comment: Speci men Type: BLOOD SPECIMENOrdering Facility: [facility] Address: [address] [place] [address] Performed By: #### T SCR ####[facility] BLOOD BANKCLIA [id number] [address] STATES [facility] XR ABD 2V SUPINE W UPR/DECUB [...] Coag (PPP) [Time] 26.8 s Normal 23.0-32.4 [facility] Comment on above: Order Comment: Speci men Type: BLOOD SPECIMENOrdering Facility: [facility] Address: [address] [place] [address] Performed By: #### 3 4528-0, 38874-6 ####[facility] LABORATORYCLIA [id number] [address] [facility] CASE MANAGEMon 08-08-2021 CASE MANAGEM Normal [facility] CBC W Auto Differential pane l (Bld)on 08-08-2021 Basophils (Bld) [#/Vol] 0.05 10*3/uL Normal <0.11 [facility] Comment on above: Order Comment: Speci men Type: BLOOD SPECIMENOrdering Facility: [facility] Address: [address] [place] [address] Performed By: #### 5 7021-8 ####[facility] LABORATORYCLIA [id number] [address] STATES [facility] Basophils/100 WBC (Bld) 0.5 % Normal [facility] Comment on above: Order Comment: Speci men Type: BLOOD SPECIMENOrdering Facility: [facility] Address: [address] [place] [address] Performed By: #### 5 7021-8 ####[facility] LABORATORYCLIA [id number] [address] [place] Differential cell count method Nom (Bld) Auto Normal [facility] Comment on above: Order Comment: Speci men Type: BLOOD SPECIMENOrdering Facility: [facility] Address: [address] [place] [address] Performed By: #### 5 7021-8 ####[facility] LABORATORYCLIA [id number] [address] Eosinophils (Bld) [#/Vol] 0.17 10*3/uL Normal <0.46 [facility] Comment on above: Order Comment: Speci men Type: BLOOD SPECIMENOrdering Facility: [facility] Address: [address] [place] [address] Performed By: #### 5 7021-8 ####[facility] LABORATORYCLIA [id number] [address] Eosinophils/100 WBC (Bld) 1.6 % Normal [facility] Comment on above: Order Comment: Speci men Type: BLOOD SPECIMENOrdering Facility: [facility] Address: [address] [place] [address] Performed By: #### 5 7021-8 ####[facility] LABORATORYCLIA [id number] [address] Erythrocyte distribution width (RBC) [Ratio] 17.8 % High 11.5-15.0 [facility] Comment on above: Order Comment: Speci men Type: BLOOD SPECIMENOrdering Facility: [facility] Address: [address] [place] [address] Performed By: #### 5 7021-8 ####[facility] LABORATORYCLIA [id number] [address] Hematocrit (Bld) [Volume fraction] 29.6 % Low 39.0-51.0 [facility] Comment on above: Order Comment: Speci men Type: BLOOD SPECIMENOrdering Facility: [facility] Address: [address] [place] [address] Performed By: #### 5 7021-8 ####[facility] LABORATORYCLIA [id number] [address] [place] Hemoglobin (Bld) [Mass/Vol] 9.0 g/dL Low 13.0-17.0 [facility] Comment on above: Order Comment: Speci men Type: BLOOD SPECIMENOrdering Facility: [facility] Address: [address] [place] [address] Performed By: #### 5 7021-8 ####[facility] LABORATORYCLIA [id number] [address] [facility] IMMATURE GRAN % 0.5 % Normal [facility] Comment on above: Order Comment: Speci men Type: BLOOD SPECIMENOrdering Facility: [facility] Address: [address] [place] [address] Performed By: #### 5 7021-8 ####[facility] LABORATORYCLIA [id number] [address] IMMATURE GRAN ABS 0.05 k/uL Normal <0.10 [facility] Comment on above: Order Comment: Speci men Type: BLOOD SPECIMENOrdering Facility: [facility] Address: [address] [place] [address] Performed By: #### 5 7021-8 ####[facility] LABORATORYCLIA [id number] [address] [place] Lymphocytes (Bld) [#/Vol] 1.93 10*3/uL Normal 1.00-4.00 [facility] Comment on above: Order Comment: Speci men Type: BLOOD SPECIMENOrdering Facility: [facility] Address: [address] [place] [address] Performed By: #### 5 7021-8 ####[facility] LABORATORYCLIA [id number] [address] Lymphocytes/100 WBC (Bld) 18.2 % Normal [facility] Comment on above: Order Comment: Speci men Type: BLOOD SPECIMENOrdering Facility: [facility] Address: [address] [place], [place] [address] Performed By: #### 5 7021-8 ####[facility] LABORATORYCLIA [id number] [address] MCH (RBC) [Entitic mass] 28.1 pg Normal 26.0-34.0 [facility] Comment on above: Order Comment: Speci men Type: BLOOD SPECIMENOrdering Facility: [facility] Address: [address] [place] [address] Performed By: #### 5 7021-8 ####[facility] LABORATORYCLIA [id number] [address] MCHC (RBC) [Mass/Vol] 30.4 g/dL Low 30.5-36.0 [facility] Comment on above: Order Comment: Speci men Type: BLOOD SPECIMENOrdering Facility: [facility] Address: [address] [place] [address] Performed By: #### 5 7021-8 ####[facility] LABORATORYCLIA [id number] [address] MCV (RBC) [Entitic vol] 92.5 fL Normal 80.0-100.0 [facility] Comment on above: Order Comment: Speci men Type: BLOOD SPECIMENOrdering Facility: [facility] Address: [address] [place] [address] Performed By: #### 5 7021-8 ####[facility] LABORATORYCLIA [id number] [address] Monocytes (Bld) [#/Vol] 0.75 10*3/uL Normal <0.87 [facility] Comment on above: Order Comment: Speci men Type: BLOOD SPECIMENOrdering Facility: [facility] Address: [address] [place] [address] Performed By: #### 5 7021-8 ####[facility] LABORATORYCLIA [id number] [address] Monocytes/100 WBC (Bld) 7.1 % Normal [facility] Comment on above: Order Comment: Speci men Type: BLOOD SPECIMENOrdering Facility: [facility] Address: [address] [place] [address] Performed By: #### 5 7021-8 ####[facility] LABORATORYCLIA [id number] [address] [place] Neutrophils (Bld) [#/Vol] 7.65 10*3/uL High 1.45-7.50 [facility] Comment on above: Order Comment: Speci men Type: BLOOD SPECIMENOrdering Facility: [facility] Address: [address] [place] [address] Performed By: #### 5 7021-8 ####[facility] LABORATORYCLIA [id number] [address] [place] Neutrophils/100 WBC (Bld) 72.1 % Normal [facility] Comment on above: Order Comment: Speci men Type: BLOOD SPECIMENOrdering Facility: [facility] Address: [address] [place] [address] Performed By: #### 5 7021-8 ####[facility]ORATORYCLIA [id number] [address] [place] Nucleated RBC (Bld) [#/Vol] 10*3/uL Normal <0.01 [facility] Comment on above: Order Comment: Speci men Type: BLOOD SPECIMENOrdering Facility: [facility] Address: [address] [place] [address] Performed By: #### 5 7021-8 ####[facility] LABORATORYCLIA [id number] [address] [place] Nucleated RBC/100 WBC (Bld) [Ratio] 0.0 /100 WBC Normal [facility] Comment on above: Order Comment: Speci men Type: BLOOD SPECIMENOrdering Facility: [facility] Address: [address] [place] [address] Performed By: #### 5 7021-8 ####[facility] LABORATORYCLIA [id number] [address] STATES [facility] Platelet mean volume (Bld) [Entitic vol] 9.8 fL Normal 9.0-12.7 [facility] Comment on above: Order Comment: Speci men Type: BLOOD SPECIMENOrdering Facility: [facility] Address: [address] [place] [address] Performed By: #### 5 7021-8 ####[facility] LABORATORYCLIA [id number] [address] [place] [facility] Platelets (Bld) [#/Vol] 175 10*3/uL Normal 150-400 [facility] Comment on above: Order Comment: Speci men Type: BLOOD SPECIMENOrdering Facility: [facility] Address: [address] [place] [address] Performed By: #### 5 7021-8 ####[facility] LABORATORYCLIA [id number] [address] STATES [facility] RBC (Bld) [#/Vol] 3.20 10*6/uL Low 4.20-6.00 [facility] Comment on above: Order Comment: Speci men Type: BLOOD SPECIMENOrdering Facility: [facility] Address: [address] [place] [address] Performed By: #### 5 7021-8 ####[facility] LABORATORYCLIA [id number] [address] [place] WBC (Bld) [#/Vol] 10.60 10*3/uL Normal 3.70-11.00 [facility] Comment on above: Order Comment: Speci men Type: BLOOD SPECIMENOrdering Facility: [facility] Address: [address] [place] [address] Performed By: #### 5 7021-8 ####[facility] LABORATORYCLIA [id number] [address] [facility] CT BRAIN WO IVCONon 08-09-19 CT BRAIN WO IVCON Normal [facility] NURSING PROGon 08-08-2021 NURSING PROG Normal [facility] Prealbumin [Mass/Vol]on Prealbumin Nephelometry [Mass/Vol] 29 mg/dL Normal 17-36 [facility] Comment on above: Order Comment: Speci men Type: BLOOD SPECIMENOrdering Facility: [facility] Address: [address] [place] [address] Performed By: #### 1 4338-8 ####[facility] LABORATORYCLIA [id number] [address] [place] SARS-CoV-2 RNA Resp Ql MEGAN+p robeon 08-08-2021 SARS-CoV-2 (COVID-19) RNA MEGAN+probe Ql (Resp) COVID 19 RESULT: SARS-CoV-2 (Agent of COVID-19) Not Detected by RT-PCR or equivalent method. This test has been authorized by FDA under an Emergency Use Authorization (EUA). Normal [facility] Comment on above: Performed By: #### 9 4500-6 ####[facility] LABORATORYCLIA [id number] [place] [address] [place] ALLIED HEALTHon 08-07-2021 ALLIED HEALTH Normal [facility] Basic metabolic 2000 panelon 08-07-2021 Anion gap [Moles/Vol] 9 mmol/L Normal 9-18 [facility] Comment on above: Order Comment: Speci men Type: BLOOD SPECIMENOrdering Facility: [facility] Address: [address] [place], [place] [id number] Performed By: #### 2 4321-2, 2777-, , [facility] ####[facility] LABORATORYCLIA [id number] [place] [address] [place] Calcium [Mass/Vol] 9.4 mg/dL Normal 8.5-10.2 [facility] Comment on above: Order Comment: Speci men Type: BLOOD SPECIMENOrdering Facility: [facility] Address: [address] [place], [place] [phone] Performed By: #### 2 4321-2, 2777-, , [facility] ####[facility] LABORATORYCLIA [id number] [place], [place] [address] [place] [address] [place] Chloride [Moles/Vol] 98 mmol/L Normal 97-105 [facility] Comment on above: Order Comment: Speci men Type: BLOOD SPECIMENOrdering Facility: [facility] Address: [address] [place] [address] Performed By: #### 2 4321-2, 2777-1, , [facility] ####[facility] LABORATORYCLIA [id number] [place] [id number] [facility] CO2 [Moles/Vol] 29 mmol/L Normal 22-30 [facility] Comment on above: Order Comment: Speci men Type: BLOOD SPECIMENOrdering Facility: [facility] Address: [address] [place] [address] Performed By: #### 2 4321-2, 2777-1, , [facility] ####[facility]ITAL[facility] [id number] [address] Creatinine [Mass/Vol] 0.67 mg/dL Low 0.73-1.22 [facility] Comment on above: Order Comment: Speci men Type: BLOOD SPECIMENOrdering Facility: [facility] Address: [address] [place] [address] Performed By: #### 2 4321-2, 2777-1, , [facility] ####[facility] LABORATORYIA [id number] [address] ESTIMATED GLOMERULAR FILTRATION RATE 101 mL/min/1.73m??? Normal >=60 [facility] Comment on above: Order Comment: Speci men Type: BLOOD SPECIMENOrdering Facility: [facility] Address: [address] [place] [address] Result Comment: Luzmaria mated Glomerular Filtration Rate [...] Performed By: #### 2 4321-2, 2776-05, , [facility] ####[facility] LABORATORYCLIA [id number] [place] [address] [place] Glucose [Mass/Vol] 117 mg/dL High 74-99 [facility] Comment on above: Order Comment: Shira feldman Type: BLOOD SPECIMENOrdering Facility: [facility] Address: [address] [place], [place] [address] Result Comment: The [place] Diabetes Association (ADA) provides guidance for cutoff [...] Standards of Medical Care in Diabetes 2016, [place] Diabetes Association. Diabetes Care. 2016.39(Suppl 1). Performed By: #### 2 4321-2, 2776-05, , [facility] ####[facility] LABORATORYCLIA [id number] [place] [address] [place] Potassium [Moles/Vol] 4.1 mmol/L Normal 3.7-5.1 [facility] Comment on above: Order Comment: Shira feldman Type: BLOOD SPECIMENOrdering Facility: [facility] Address: [address] [place] [address] Performed By: #### 2 4321-2, 2776-05, , [facility] ####[facility] LABORATORYIA [id number] [place] [address] [place] Sodium [Moles/Vol] 136 mmol/L Normal 136-144 [facility] Comment on above: Order Comment: Shira feldman Type: BLOOD SPECIMENOrdering Facility: [facility] Address: [address] [place] [address] Performed By: #### 2 4321-2, 277-, , [facility] ####[facility] LABORATORYCLIA [id number] [address] [place] [facility] Urea nitrogen [Mass/Vol] 31 mg/dL High 9-24 [facility] Comment on above: Order Comment: Speci men Type: BLOOD SPECIMENOrdering Facility: [facility] Address: [address] [place] [address] Performed By: #### 2 4321-2, 2776-05, , [facility] ####[facility] LABORATORYCLIA [id number] [address] STATES OF [facility] CBC W Auto Differential pane l (Bld)on 08-07-2021 Basophils (Bld) [#/Vol] 0.03 10*3/uL Normal <0.11 [facility] Comment on above: Order Comment: Speci men Type: BLOOD SPECIMENOrdering Facility: [facility] Address: [address] [place] [address] Performed By: #### 5 7021-8 ####[facility] LABORATORYCLIA [id number] [address] [place] Basophils/100 WBC (Bld) 0.3 % Normal [facility] Comment on above: Order Comment: Speci men Type: BLOOD SPECIMENOrdering Facility: [facility] Address: [address] [place] [address] Performed By: #### 5 7021-8 ####[facility] LABORATORYCLIA [id number] [address] STATES [facility] Differential cell count method Nom (Bld) Auto Normal [facility] Comment on above: Order Comment: Speci men Type: BLOOD SPECIMENOrdering Facility: [facility] Address: [address] [place] [address] Performed By: #### 5 7021-8 ####[facility] LABORATORYCLIA [id number] [address] [place] Eosinophils (Bld) [#/Vol] 0.16 10*3/uL Normal <0.46 [facility] Comment on above: Order Comment: Speci men Type: BLOOD SPECIMENOrdering Facility: [facility] Address: [address] [place] [address] Performed By: #### 5 7021-8 ####[facility] LABORATORYCLIA [id number] [address] OF [place] Eosinophils/100 WBC (Bld) 1.6 % Normal [facility] Comment on above: Order Comment: Speci men Type: BLOOD SPECIMENOrdering Facility: [facility] Address: [address] [place] [address] Performed By: #### 5 7021-8 ####[facility] LABORATORYCLIA [id number] [address] Erythrocyte distribution width (RBC) [Ratio] 18.1 % High 11.5-15.0 [facility] Comment on above: Order Comment: Speci men Type: BLOOD SPECIMENOrdering Facility: [facility] Address: [address] [place] [address] Performed By: #### 5 7021-8 ####[facility] LABORATORYCLIA [id number] [address] OF [place] Hematocrit (Bld) [Volume fraction] 30.6 % Low 39.0-51.0 [facility] Comment on above: Order Comment: Speci men Type: BLOOD SPECIMENOrdering Facility: [facility] Address: [address] [place] [address] Performed By: #### 5 7021-8 ####[facility] LABORATORYCLIA [id number] [address] [place] Hemoglobin (Bld) [Mass/Vol] 9.4 g/dL Low 13.0-17.0 [facility] Comment on above: Order Comment: Speci men Type: BLOOD SPECIMENOrdering Facility: [facility] Address: [address] [address] Performed By: #### 5 7021-8 ####[facility] LABORATORYCLIA [id number] [address] IMMATURE GRAN % 0.4 % Normal [facility] Comment on above: Order Comment: Speci men Type: BLOOD SPECIMENOrdering Facility: [facility] Address: [address] [place] [address] Performed By: #### 5 7021-8 ####[facility] LABORATORYCLIA [id number] [address] IMMATURE GRAN ABS 0.04 k/uL Normal <0.10 [facility] Comment on above: Order Comment: Speci men Type: BLOOD SPECIMENOrdering Facility: [facility] Address: [address] [place] [address] Performed By: #### 5 7021-8 ####[facility] LABORATORYCLIA [id number] [address] Lymphocytes (Bld) [#/Vol] 2.05 10*3/uL Normal 1.00-4.00 [facility] Comment on above: Order Comment: Speci men Type: BLOOD SPECIMENOrdering Facility: [facility] Address: [address] [place] [address] Performed By: #### 5 7021-8 ####[facility] LABORATORYCLIA [id number] [address] Lymphocytes/100 WBC (Bld) 20.2 % Normal [facility] Comment on above: Order Comment: Speci men Type: BLOOD SPECIMENOrdering Facility: [facility] Address: [address] [place] [address] Performed By: #### 5 7021-8 ####[facility] LABORATORYCLIA [id number] [address] [place] MCH (RBC) [Entitic mass] 28.8 pg Normal 26.0-34.0 [facility] Comment on above: Order Comment: Speci men Type: BLOOD SPECIMENOrdering Facility: [facility] Address: [address] [place] [address] Performed By: #### 5 7021-8 ####[facility] LABORATORYCLIA [id number] [address] MCHC (RBC) [Mass/Vol] 30.7 g/dL Normal 30.5-36.0 [facility] Comment on above: Order Comment: Speci men Type: BLOOD SPECIMENOrdering Facility: [facility] Address: [address] [place] [address] Performed By: #### 5 7021-8 ####[facility] LABORATORYCLIA [id number] [address] MCV (RBC) [Entitic vol] 93.9 fL Normal 80.0-100.0 [facility] Comment on above: Order Comment: Speci men Type: BLOOD SPECIMENOrdering Facility: [facility] Address: [address] [place] [address] Performed By: #### 5 7021-8 ####[facility] LABORATORYCLIA [id number] [address] Monocytes (Bld) [#/Vol] 0.64 10*3/uL Normal <0.87 [facility] Comment on above: Order Comment: Speci men Type: BLOOD SPECIMENOrdering Facility: [facility] Address: [address] [place] [address] Performed By: #### 5 7021-8 ####[facility] LABORATORYCLIA [id number] [address] Monocytes/100 WBC (Bld) 6.3 % Normal [facility] Comment on above: Order Comment: Speci men Type: BLOOD SPECIMENOrdering Facility: [facility] Address: [address] [place] [address] Performed By: #### 5 7021-8 ####[facility] LABORATORYCLIA [id number] [place] [address] [place] Neutrophils (Bld) [#/Vol] 7.22 10*3/uL Normal 1.45-7.50 [facility] Comment on above: Order Comment: Speci men Type: BLOOD SPECIMENOrdering Facility: [facility] Address: [address] [place] [address] Performed By: #### 5 7021-8 ####[facility] LABORATORYCLIA [id number] [address] [place] Neutrophils/100 WBC (Bld) 71.2 % Normal [facility] Comment on above: Order Comment: Speci men Type: BLOOD SPECIMENOrdering Facility: [facility] Address: [address] [place] [address] Performed By: #### 5 7021-8 ####[facility] LABORATORYCLIA [id number] [address] [place] Nucleated RBC (Bld) [#/Vol] 10*3/uL Normal <0.01 [facility] Comment on above: Order Comment: Speci men Type: BLOOD SPECIMENOrdering Facility: [facility] Address: [address] [place] [address] Performed By: #### 5 7021-8 ####[facility] LABORATORYCLIA [id number] [address] [place] Nucleated RBC/100 WBC (Bld) [Ratio] 0.0 /100 WBC Normal [facility] Comment on above: Order Comment: Speci men Type: BLOOD SPECIMENOrdering Facility: [facility] Address: [address] [place] [address] Performed By: #### 5 7021-8 ####[facility] LABORATORYCLIA [id number] [place] [address] [place] Platelet mean volume (Bld) [Entitic vol] 9.9 fL Normal 9.0-12.7 [facility] Comment on above: Order Comment: Speci men Type: BLOOD SPECIMENOrdering Facility: [facility] Address: [address] [place] [address] Performed By: #### 5 7021-8 ####[facility] LABORATORYCLIA [id number] [address] Platelets (Bld) [#/Vol] 227 10*3/uL Normal 150-400 [facility] Comment on above: Order Comment: Speci men Type: BLOOD SPECIMENOrdering Facility: [facility] Address: [address] [place] [address] Performed By: #### 5 7021-8 ####[facility] LABORATORYCLIA [id number] [address] [place] RBC (Bld) [#/Vol] 3.26 10*6/uL Low 4.20-6.00 [facility] Comment on above: Order Comment: Speci men Type: BLOOD SPECIMENOrdering Facility: [facility] Address: [address] [place] [address] Performed By: #### 5 7021-8 ####[facility] LABORATORYCLIA [id number] [address] OF [facility] WBC (Bld) [#/Vol] 10.14 10*3/uL Normal 3.70-11.00 [facility] Comment on above: Order Comment: Speci men Type: BLOOD SPECIMENOrdering Facility: [facility] Address: [address] [place] [address] Performed By: #### 5 7021-8 ####[facility] LABORATORYCLIA [id number] [address] [place] CT BRAIN WO IVCONon 08-08-19 CT BRAIN WO IVCON Normal [facility] HEPATIC FUNCTION PNLon 08-07 Albumin [Mass/Vol] 3.6 g/dL Low 3.9-4.9 [facility] Comment on above: Order Comment: Speci men Type: BLOOD SPECIMENOrdering Facility: [facility] Address: [address] [place] [address] Performed By: #### 2 4321-2, 2777-1, 44127-0, HFP ####[facility] LABORATORYCLIA [id number] [place] [address] [place] ALP [Catalytic activity/Vol] 124 U/L High 38-113 [facility] Comment on above: Order Comment: Speci men Type: BLOOD SPECIMENOrdering Facility: [facility] Address: [address] [place] [address] Performed By: #### 2 4321-2, 2776-, , HFP ####[facility] LABORATORYCLIA [id number] [address] [place] ALT With P-5'-P [Catalytic activity/Vol] 29 U/L Normal 10-54 [facility] Comment on above: Order Comment: Speci men Type: BLOOD SPECIMENOrdering Facility: [facility] Address: [address] [place] [address] Performed By: #### 2 4321-2, 2776-05, , HFP ####[facility] LABORATORYCLIA [id number] [address] [place] AST With P-5'-P [Catalytic activity/Vol] 18 U/L Normal 14-40 [facility] Comment on above: Order Comment: Speci men Type: BLOOD SPECIMENOrdering Facility: [facility] Address: [address] [place] [address] Performed By: #### 2 4321-2, 2776-, , HFP ####[facility] LABORATORYCLIA [id number] [address] [place] Bilirubin [Mass/Vol] 0.3 mg/dL Normal 0.2-1.3 [facility] Comment on above: Order Comment: Speci men Type: BLOOD SPECIMENOrdering Facility: [facility] Address: [address] [place] [address] Performed By: #### 2 4321-2, 2776-1, , HFP ####[facility] LABORATORYCLIA [id number] [address] [place] Bilirubin.conjugated [Mass/Vol] mg/dL Normal <0.2 [facility] Comment on above: Order Comment: Speci men Type: BLOOD SPECIMENOrdering Facility: [facility] Address: [address] [place] [address] Performed By: #### 2 4321-2, 2776-, , HFP ####[facility] LABORATORYCLIA [id number] [address] Protein [Mass/Vol] 6.4 g/dL Normal 6.3-8.0 [facility] Comment on above: Order Comment: Speci men Type: BLOOD SPECIMENOrdering Facility: [facility] Address: [address] [place] [address] Performed By: #### 2 4321-2, 2776-05, , HFP ####[facility] LABORATORYCLIA [id number] [address] Magnesium [facility]-07 Magnesium [Mass/Vol] 2.3 mg/dL Normal 1.7-2.3 [facility] Comment on above: Order Comment: Speci men Type: BLOOD SPECIMENOrdering Facility: [facility] Address: [address] [place] [address] Performed By: #### 2 4321-2, 2776-05, , HFP ####[facility] LABORATORYCLIA [id number] [address] [place] NURSING PROGon 08-07-2021 NURSING PROG Normal [facility] Phosphate SerPl-mCncon 08-07 Phosphate [Mass/Vol] 3.5 mg/dL Normal 2.7-4.8 [facility] Comment on above: Order Comment: Speci men Type: BLOOD SPECIMENOrdering Facility: [facility] Address: [address] [place], [place] [address] Performed By: #### 2 4321-2, 277-, , HFP ####[facility] LABORATORYCLIA [id number] [place] [address] [place] ANES POSTPROC EVALon 022 ANES POSTPROC EVAL Normal [facility] Basic metabolic 2000 panelon 08-06-2021 Anion gap [Moles/Vol] 11 mmol/L Normal 9-18 [facility] Comment on above: Order Comment: Speci men Type: BLOOD SPECIMENOrdering Facility: [facility] Address: [address] [place] [address] Performed By: #### 2 4321-2, 2776-05, ####[facility] LABORATORYCLIA [id number] [place] [address] [place] Calcium [Mass/Vol] 8.2 mg/dL Low 8.5-10.2 [facility] Comment on above: Order Comment: Speci men Type: BLOOD SPECIMENOrdering Facility: [facility] Address: [address] [place] [address] Performed By: #### 2 4321-2, 2776-05, ####[facility] LABORATORYCLIA [id number] [place] [address] [place] Chloride [Moles/Vol] 100 mmol/L Normal 97-105 [facility] Comment on above: Order Comment: Speci men Type: BLOOD SPECIMENOrdering Facility: [facility] Address: [address] [place] [address] Performed By: #### 2 4321-2, 2776-05, ####[facility] LABORATORYCLIA [id number] [place] [address] [place] CO2 [Moles/Vol] 23 mmol/L Normal 22-30 [facility] Comment on above: Order Comment: Speci men Type: BLOOD SPECIMENOrdering Facility: [facility] Address: [address] [place] [address] Performed By: #### 2 4321-2, 2776-05, ####[facility] LABORATORYCLIA [id number] [address] STATES [place] [facility] Creatinine [Mass/Vol] 0.55 mg/dL Low 0.73-1.22 [facility] Comment on above: Order Comment: Shira feldman Type: BLOOD SPECIMENOrdering Facility: [facility] Address: [address] [place], [place] [address] Performed By: #### 2 4321-2, 2776-05, ####[facility]CL[facility] [id number] [address] ESTIMATED GLOMERULAR FILTRATION RATE 107 mL/min/1.73m??? Normal >=60 [facility] Comment on above: Order Comment: Shira feldman Type: BLOOD SPECIMENOrdering Facility: [facility] Address: [address] [place] [address] Result Comment: Luzmaria mated Glomerular Filtration Rate [...] GFR. Performed By: #### 2 4321-2, 2776-05, ####[facility] [id number] [address] [place] Glucose [Mass/Vol] 275 mg/dL High 74-99 [facility] Comment on above: Order Comment: Shira feldman Type: BLOOD SPECIMENOrdering Facility: [facility] Address: [address] [place], [place] [address] Result Comment: The [place] Diabetes Association (ADA) provides guidance for cutoff [...] Standards of Medical Care in Diabetes 2016, [place] Diabetes Association. Diabetes Care. 2016.39(Suppl 1). Performed By: #### 2 4321-2, 2776-05, ####[facility] LABORATORYCLIA [id number] [place] [address] [place] Potassium [Moles/Vol] 3.6 mmol/L Low 3.7-5.1 [facility] Comment on above: Order Comment: Speci men Type: BLOOD SPECIMENOrdering Facility: [facility] Address: [address] [place] [address] Performed By: #### 2 4321-2, 2776-05, ####[facility] LABORATORYCLIA [id number] [address] [place] [facility] Sodium [Moles/Vol] 134 mmol/L Low 136-144 [facility] Comment on above: Order Comment: Speci men Type: BLOOD SPECIMENOrdering Facility: [facility] Address: [address] [place] [address] Performed By: #### 2 4321-2, 2776-05, ####[facility] LABORATORYCLIA [id number] [address] STATES [facility] Urea nitrogen [Mass/Vol] 29 mg/dL High 9-24 [facility] Comment on above: Order Comment: Speci men Type: BLOOD SPECIMENOrdering Facility: [facility] Address: [address] [place] [address] Performed By: #### 2 4321-2, 2776-05, ####[facility] LABORATORYCLIA [id number] [place] [address] [place] CBC W Auto Differential pane l (Bld)on 08-06-2021 Basophils (Bld) [#/Vol] 0.03 10*3/uL Normal <0.11 [facility] Comment on above: Order Comment: Speci men Type: BLOOD SPECIMENOrdering Facility: [facility] Address: [address] [address] Performed By: #### 5 7021-8 ####[facility]ORATORYCLIA [id number] [address] Basophils/100 WBC (Bld) 0.3 % Normal [facility] Comment on above: Order Comment: Speci men Type: BLOOD SPECIMENOrdering Facility: [facility] Address: [address] [place] [address] Performed By: #### 5 7021-8 ####[facility] LABORATORYCLIA [id number] [address] Differential cell count method Nom (Bld) Auto Normal [facility] Comment on above: Order Comment: Speci men Type: BLOOD SPECIMENOrdering Facility: [facility] Address: [address] [place] [address] Performed By: #### 5 7021-8 ####[facility]ORATORYCLIA [id number] [address] [place] Eosinophils (Bld) [#/Vol] 0.18 10*3/uL Normal <0.46 [facility] Comment on above: Order Comment: Speci men Type: BLOOD SPECIMENOrdering Facility: [facility] Address: [address] [place] [address] Performed By: #### 5 7021-8 ####[facility]ORATORYCLIA [id number] [address] Eosinophils/100 WBC (Bld) 1.6 % Normal [facility] Comment on above: Order Comment: Speci men Type: BLOOD SPECIMENOrdering Facility: [facility] Address: [address] [place] [address] Performed By: #### 5 7021-8 ####[facility]ORATORYCLIA [id number] [address] [place] Erythrocyte distribution width (RBC) [Ratio] 17.9 % High 11.5-15.0 [facility] Comment on above: Order Comment: Speci men Type: BLOOD SPECIMENOrdering Facility: [facility] Address: [address] [place] [address] Performed By: #### 5 7021-8 ####[facility] LABORATORYCLIA [id number] [address] Hematocrit (Bld) [Volume fraction] 27.6 % Low 39.0-51.0 [facility] Comment on above: Order Comment: Speci men Type: BLOOD SPECIMENOrdering Facility: [facility] Address: [address] [place] [address] Performed By: #### 5 7021-8 ####[facility] LABORATORYCLIA [id number] [address] Hemoglobin (Bld) [Mass/Vol] 8.5 g/dL Low 13.0-17.0 [facility] Comment on above: Order Comment: Speci men Type: BLOOD SPECIMENOrdering Facility: [facility] Address: [address] [place] [address] Performed By: #### 5 7021-8 ####[facility] LABORATORYCLIA [id number] [address] IMMATURE GRAN % 0.6 % Normal [facility] Comment on above: Order Comment: Speci men Type: BLOOD SPECIMENOrdering Facility: [facility] Address: [address] [place] [address] Performed By: #### 5 7021-8 ####[facility] LABORATORYCLIA [id number] [address] IMMATURE GRAN ABS 0.07 k/uL Normal <0.10 [facility] Comment on above: Order Comment: Speci men Type: BLOOD SPECIMENOrdering Facility: [facility] Address: [address] [place] [address] Performed By: #### 5 7021-8 ####[facility] LABORATORYCLIA [id number] [place] [address] [place] Lymphocytes (Bld) [#/Vol] 1.81 10*3/uL Normal 1.00-4.00 [facility] Comment on above: Order Comment: Speci men Type: BLOOD SPECIMENOrdering Facility: [facility] Address: [address] [place] [address] Performed By: #### 5 7021-8 ####[facility] LABORATORYCLIA [id number] [address] Lymphocytes/100 WBC (Bld) 15.7 % Normal [facility] Comment on above: Order Comment: Speci men Type: BLOOD SPECIMENOrdering Facility: [facility] Address: [address] [place] [address] Performed By: #### 5 7021-8 ####[facility] LABORATORYCLIA [id number] [address] [place] MCH (RBC) [Entitic mass] 28.6 pg Normal 26.0-34.0 [facility] Comment on above: Order Comment: Speci men Type: BLOOD SPECIMENOrdering Facility: [facility] Address: [address] [place] [address] Performed By: #### 5 7021-8 ####[facility] LABORATORYCLIA [id number] [address] STATES OF [facility] MCHC (RBC) [Mass/Vol] 30.8 g/dL Normal 30.5-36.0 [facility] Comment on above: Order Comment: Speci men Type: BLOOD SPECIMENOrdering Facility: [facility] Address: [address] [place] [address] Performed By: #### 5 7021-8 ####[facility] LABORATORYCLIA [id number] [address] MCV (RBC) [Entitic vol] 92.9 fL Normal 80.0-100.0 [facility] Comment on above: Order Comment: Speci men Type: BLOOD SPECIMENOrdering Facility: [facility] Address: [address] [place] [address] Performed By: #### 5 7021-8 ####[facility]ORATORYCLIA [id number] [place] [address] [place] Monocytes (Bld) [#/Vol] 0.63 10*3/uL Normal <0.87 [facility] Comment on above: Order Comment: Speci men Type: BLOOD SPECIMENOrdering Facility: [facility] Address: [address] [place] [address] Performed By: #### 5 7021-8 ####[facility]ORATORYCLIA [id number] [address] [place] Monocytes/100 WBC (Bld) 5.5 % Normal [facility] Comment on above: Order Comment: Speci men Type: BLOOD SPECIMENOrdering Facility: [facility] Address: [address] [place] [address] Performed By: #### 5 7021-8 ####[facility] LABORATORYCLIA [id number] [address] [place] Neutrophils (Bld) [#/Vol] 8.78 10*3/uL High 1.45-7.50 [facility] Comment on above: Order Comment: Speci men Type: BLOOD SPECIMENOrdering Facility: [facility] Address: [address] [place] [address] Performed By: #### 5 7021-8 ####[facility]ORATORYCLIA [id number] [address] [place] Neutrophils/100 WBC (Bld) 76.3 % Normal [facility] Comment on above: Order Comment: Speci men Type: BLOOD SPECIMENOrdering Facility: [facility] Address: [address] [place] [address] Performed By: #### 5 7021-8 ####[facility]ORATORYCLIA [id number] [place] [address] [place] Nucleated RBC (Bld) [#/Vol] 10*3/uL Normal <0.01 [facility] Comment on above: Order Comment: Speci men Type: BLOOD SPECIMENOrdering Facility: [facility] Address: [address] [place] [address] Performed By: #### 5 7021-8 ####[facility] LABORATORYCLIA [id number] [address] [place] Nucleated RBC/100 WBC (Bld) [Ratio] 0.0 /100 WBC Normal [facility] Comment on above: Order Comment: Speci men Type: BLOOD SPECIMENOrdering Facility: [facility] Address: [address] [place] [address] Performed By: #### 5 7021-8 ####[facility] LABORATORYCLIA [id number] [place] [address] [place] Platelet mean volume (Bld) [Entitic vol] 9.9 fL Normal 9.0-12.7 [facility] Comment on above: Order Comment: Speci men Type: BLOOD SPECIMENOrdering Facility: [facility] Address: [address] [place] [address] Performed By: #### 5 7021-8 ####[facility] LABORATORYCLIA [id number] [place] [address] [place] Platelets (Bld) [#/Vol] 230 10*3/uL Normal 150-400 [facility] Comment on above: Order Comment: Speci men Type: BLOOD SPECIMENOrdering Facility: [facility] Address: [address] [place] [address] Performed By: #### 5 7021-8 ####[facility] LABORATORYCLIA [id number] [place] [address] [place] RBC (Bld) [#/Vol] 2.97 10*6/uL Low 4.20-6.00 [facility] Comment on above: Order Comment: Speci men Type: BLOOD SPECIMENOrdering Facility: [facility] Address: [address] [place] [address] Performed By: #### 5 7021-8 ####[facility] LABORATORYCLIA [id number] [address] [place] WBC (Bld) [#/Vol] 11.50 10*3/uL High 3.70-11.00 [facility] Comment on above: Order Comment: Speci men Type: BLOOD SPECIMENOrdering Facility: [facility] Address: [address] [place] [address] Performed By: #### 5 7021-8 ####[facility] LABORATORYCLIA [id number] [address] OF [facility] CONSULT PROGon 08-06-2021 CONSULT PROG Normal [facility] Magnesium SerPl-mCncon 08-06 Magnesium [Mass/Vol] 1.9 mg/dL Normal 1.7-2.3 [facility] Comment on above: Order Comment: Speci men Type: BLOOD SPECIMENOrdering Facility: [facility] Address: [address] [place] [address] Performed By: #### 2 4321-2, 2777-1, 47274-4 ####[facility] LABORATORYCLIA [id number] [address] [place] NURSING PROGon 08-06-2021 NURSING PROG Normal [facility] OPERATIVE NOon 08-06-2021 OPERATIVE NO Normal [facility] Phosphate SerPl-mCncon 08-06 Phosphate [Mass/Vol] 4.2 mg/dL Normal 2.7-4.8 [facility] Comment on above: Order Comment: Speci men Type: BLOOD SPECIMENOrdering Facility: [facility] Address: [address] [place] [address] Performed By: #### 2 4321-2, 2777-1, 13482-2 ####[facility] LABORATORYCLIA [id number] [address] [place] ALLIED HEALTHon 08-05-2021 ALLIED [...] By: #### 3 2355-0 ####[facility] LABORATORYCLIA [id number] [place] [address] [place] Bacteria Ur Culton 2 Bacteria identified Cx Nom (U) CULTURE, URINE: No growth (<1,000 CFU/ml) Normal [facility] Comment on above: Performed By: #### 6 30-4 ####[facility] LABORATORYCLIA [id number] [place] [address] [place] Basic metabolic 2000 panelon 08-05-2021 Anion gap [Moles/Vol] 7 mmol/L Low 9-18 [facility] Comment on above: Order Comment: Speci men Type: BLOOD SPECIMENOrdering Facility: [facility] Address: [address] [place] [address] Performed By: #### 2 4321-2 ####[facility] LABORATORYCLIA [id number] [place] [address] [place] Calcium [Mass/Vol] 9.5 mg/dL Normal 8.5-10.2 [facility] Comment on above: Order Comment: Speci men Type: BLOOD SPECIMENOrdering Facility: [facility] Address: [address] [address] Performed By: #### 2 4321-2 ####[facility] LABORATORYCLIA [id number] [place] [address] [place] Chloride [Moles/Vol] 97 mmol/L Normal 97-105 [facility] Comment on above: Order Comment: Speci men Type: BLOOD SPECIMENOrdering Facility: [facility] Address: [address] [address] Performed By: #### 2 4321-2 ####[facility] LABORATORYCLIA [id number] [address] STATES [place] CO2 [Moles/Vol] 30 mmol/L Normal 22-30 [facility] Comment on above: Order Comment: Speci men Type: BLOOD SPECIMENOrdering Facility: [facility] Address: [address] [place] [address] Performed By: #### 2 4321-2 ####[facility] LABORATORYCLIA [id number] [address] Creatinine [Mass/Vol] 0.61 mg/dL Low 0.73-1.22 [facility] Comment on above: Order Comment: Speci men Type: BLOOD SPECIMENOrdering Facility: [facility] Address: [address] [place] [address] Performed By: #### 2 4321-2 ####[facility]PITALCLIA [id number] [address] ESTIMATED GLOMERULAR FILTRATION RATE 104 mL/min/1.73m??? Normal >=60 [facility] Comment on above: Order Comment: Speci men Type: BLOOD SPECIMENOrdering Facility: [facility] Address: [address] [place] [address] Result Comment: Luzmaria mated Glomerular Filtration Rate [...] By: #### 2 4321-2 ####[facility] LABORATORYCLIA [id number] [address] OF [facility] Glucose [Mass/Vol] 124 mg/dL High 74-99 [facility] Comment on above: Order Comment: Speci men Type: BLOOD SPECIMENOrdering Facility: [facility] Address: [address] [place] [address] Result Comment: The [place] Diabetes Association (ADA) provides guidance for cutoff [...] Standards of Medical Care in Diabetes 2016, [place] Diabetes Association. Diabetes Care. 2016.39(Suppl 1). Performed By: #### 2 4321-2 ####[facility] LABORATORYCLIA [id number] [address] STATES OF [facility] Potassium [Moles/Vol] 4.9 mmol/L Normal 3.7-5.1 [facility] Comment on above: Order Comment: Speci men Type: BLOOD SPECIMENOrdering Facility: [facility] Address: [address] [place] [address] Performed By: #### 2 1-2 ####[facility] LABORATORYCLIA [id number] [address] STATES [facility] Sodium [Moles/Vol] 134 mmol/L Low 136-144 [facility] Comment on above: Order Comment: Shira feldman Type: BLOOD SPECIMENOrdering Facility: [facility] Address: [address] [place] [address] Performed By: #### 2 4321-2 ####[facility] LABORATORYCLIA [id number] [address] STATES [facility] Urea nitrogen [Mass/Vol] 40 mg/dL High 9-24 [facility] Comment on above: Order Comment: Johni men Type: BLOOD SPECIMENOrdering Facility: [facility] Address: [facility] [place] [address] Performed By: #### 2 4321-2 ####[facility] LABORATORYCLIA [id number] [address] [place] CBC W Auto Differential pane l (Bld)on 08-05-2021 Basophils (Bld) [#/Vol] 0.04 10*3/uL Normal <0.11 [facility] Comment on above: Order Comment: Speci men Type: BLOOD SPECIMENOrdering Facility: [facility] Address: [address] [address] Performed By: #### 5 7021-8 ####[facility] LABORATORYCLIA [id number] [place] [address] [place] Basophils/100 WBC (Bld) 0.3 % Normal [facility] Comment on above: Order Comment: Speci men Type: BLOOD SPECIMENOrdering Facility: [facility] Address: [address] [place] [address] Performed By: #### 5 7021-8 ####[facility] LABORATORYCLIA [id number] [address] [place] Differential cell count method Nom (Bld) Auto Normal [facility] Comment on above: Order Comment: Speci men Type: BLOOD SPECIMENOrdering Facility: [facility] Address: [address] [place] [address] Performed By: #### 5 7021-8 ####[facility] LABORATORYCLIA [id number] [place] [address] [place] Eosinophils (Bld) [#/Vol] 0.42 10*3/uL Normal <0.46 [facility] Comment on above: Order Comment: Speci men Type: BLOOD SPECIMENOrdering Facility: [facility] Address: [address] [address] Performed By: #### 5 7021-8 ####[facility]ORATORYCLIA [id number] [address] [place] Eosinophils/100 WBC (Bld) 3.6 % Normal [facility] Comment on above: Order Comment: Speci men Type: BLOOD SPECIMENOrdering Facility: [facility] Address: [address] [place] [address] Performed By: #### 5 7021-8 ####[facility] LABORATORYCLIA [id number] [address] Erythrocyte distribution width (RBC) [Ratio] 17.9 % High 11.5-15.0 [facility] Comment on above: Order Comment: Speci men Type: BLOOD SPECIMENOrdering Facility: [facility] Address: [address] [place] [address] Performed By: #### 5 7021-8 ####[facility] LABORATORYCLIA [id number] [address] OF [facility] Hematocrit (Bld) [Volume fraction] 30.8 % Low 39.0-51.0 [facility] Comment on above: Order Comment: Speci men Type: BLOOD SPECIMENOrdering Facility: [facility] Address: [address] [place] [address] Performed By: #### 5 7021-8 ####[facility] LABORATORYCLIA [id number] [address] Hemoglobin (Bld) [Mass/Vol] 9.6 g/dL Low 13.0-17.0 [facility] Comment on above: Order Comment: Speci men Type: BLOOD SPECIMENOrdering Facility: [facility] Address: [address] [place] [address] Performed By: #### 5 7021-8 ####[facility] LABORATORYCLIA [id number] [address] IMMATURE GRAN % 0.5 % Normal [facility] Comment on above: Order Comment: Speci men Type: BLOOD SPECIMENOrdering Facility: [facility] Address: [address] [place] [address] Performed By: #### 5 7021-8 ####[facility] LABORATORYCLIA [id number] [address] IMMATURE GRAN ABS 0.06 k/uL Normal <0.10 [facility] Comment on above: Order Comment: Speci men Type: BLOOD SPECIMENOrdering Facility: [facility] Address: [address] [address] Performed By: #### 5 7021-8 ####[facility] LABORATORYCLIA [id number] [address] OF [facility] Lymphocytes (Bld) [#/Vol] 2.17 10*3/uL Normal 1.00-4.00 [facility] Comment on above: Order Comment: Speci men Type: BLOOD SPECIMENOrdering Facility: [facility] Address: [address] [place] [address] Performed By: #### 5 7021-8 ####[facility] LABORATORYCLIA [id number] [address] Lymphocytes/100 WBC (Bld) 18.7 % Normal [facility] Comment on above: Order Comment: Speci men Type: BLOOD SPECIMENOrdering Facility: [facility] Address: [address] [place] [address] Performed By: #### 5 7021-8 ####[facility] LABORATORYCLIA [id number] [address] STATES [place] [facility] MCH (RBC) [Entitic mass] 28.9 pg Normal 26.0-34.0 [facility] Comment on above: Order Comment: Speci men Type: BLOOD SPECIMENOrdering Facility: [facility] Address: [address] [place] [address] Performed By: #### 5 7021-8 ####[facility] LABORATORYCLIA [id number] [address] [place] MCHC (RBC) [Mass/Vol] 31.2 g/dL Normal 30.5-36.0 [facility] Comment on above: Order Comment: Speci men Type: BLOOD SPECIMENOrdering Facility: [facility] Address: [address] [place] [address] Performed By: #### 5 7021-8 ####[facility] LABORATORYCLIA [id number] [address] MCV (RBC) [Entitic vol] 92.8 fL Normal 80.0-100.0 [facility] Comment on above: Order Comment: Speci men Type: BLOOD SPECIMENOrdering Facility: [facility] Address: [address] [place] [address] Performed By: #### 5 7021-8 ####[facility] LABORATORYCLIA [id number] [place] [address] [place] Monocytes (Bld) [#/Vol] 0.71 10*3/uL Normal <0.87 [facility] Comment on above: Order Comment: Speci men Type: BLOOD SPECIMENOrdering Facility: [facility] Address: [address] [place] [address] Performed By: #### 5 7021-8 ####[facility] LABORATORYCLIA [id number] [address] [place] Monocytes/100 WBC (Bld) 6.1 % Normal [facility] Comment on above: Order Comment: Speci men Type: BLOOD SPECIMENOrdering Facility: [facility] Address: [address] [place] [address] Performed By: #### 5 7021-8 ####[facility] LABORATORYCLIA [id number] [place] [address] [place] Neutrophils (Bld) [#/Vol] 8.19 10*3/uL High 1.45-7.50 [facility] Comment on above: Order Comment: Speci men Type: BLOOD SPECIMENOrdering Facility: [facility] Address: [address] [place] [address] Performed By: #### 5 7021-8 ####[facility] LABORATORYCLIA [id number] [place] [address] [place] Neutrophils/100 WBC (Bld) 70.8 % Normal [facility] Comment on above: Order Comment: Speci men Type: BLOOD SPECIMENOrdering Facility: [facility] Address: [address] [place] [address] Performed By: #### 5 7021-8 ####[facility]ORATORYCLIA [id number] [address] [place] Nucleated RBC (Bld) [#/Vol] 10*3/uL Normal <0.01 [facility] Comment on above: Order Comment: Speci men Type: BLOOD SPECIMENOrdering Facility: [facility] Address: [address] [place] [address] Performed By: #### 5 7021-8 ####[facility] LABORATORYCLIA [id number] [address] [place] Nucleated RBC/100 WBC (Bld) [Ratio] 0.0 /100 WBC Normal [facility] Comment on above: Order Comment: Speci men Type: BLOOD SPECIMENOrdering Facility: [facility] Address: [address] [place] [address] Performed By: #### 5 7021-8 ####[facility] LABORATORYCLIA [id number] [address] [place] Platelet mean volume (Bld) [Entitic vol] 9.6 fL Normal 9.0-12.7 [facility] Comment on above: Order Comment: Speci men Type: BLOOD SPECIMENOrdering Facility: [facility] Address: [address] [place] [address] Performed By: #### 5 7021-8 ####[facility] LABORATORYCLIA [id number] [address] [place] Platelets (Bld) [#/Vol] 339 10*3/uL Normal 150-400 [facility] Comment on above: Order Comment: Speci men Type: BLOOD SPECIMENOrdering Facility: [facility] Address: [address] [place] [address] Performed By: #### 5 7021-8 ####[facility] LABORATORYCLIA [id number] [address] [place] RBC (Bld) [#/Vol] 3.32 10*6/uL Low 4.20-6.00 [facility] Comment on above: Order Comment: Speci men Type: BLOOD SPECIMENOrdering Facility: [facility] Address: [address] [place] [address] Performed By: #### 5 7021-8 ####[facility] LABORATORYCLIA [id number] [address] STATES [place] [facility] WBC (Bld) [#/Vol] 11.59 10*3/uL High 3.70-11.00 [facility] Comment on above: Order Comment: Speci men Type: BLOOD SPECIMENOrdering Facility: [facility] Address: [address] [place] [address] Performed By: #### 5 7021-8 ####[facility] LABORATORYCLIA [id number] [address] [place] BRAIN WO IVCONon 08-06-19 CT BRAIN WO IVCON Normal [facility] Magnesium SerPl-mCncon 08-05 Magnesium [Mass/Vol] 2.2 mg/dL Normal 1.7-2.3 [facility] Comment on above: Order Comment: Speci men Type: BLOOD SPECIMENOrdering Facility: [facility] Address: [address] [place] [address] Performed By: #### 1 9123-9, 2777-1 ####[facility] LABORATORYCLIA [id number] [address] [place] NURSING PROGon 08-05-2021 NURSING [...] Comment: Speci men Type: BLOOD SPECIMENOrdering Facility: [facility] Address: [address] [place] [address] Performed By: #### 1 9123-9, 2777-1 ####[facility]ATORYCLIA [id number] [address] THERAPY NTon 08-05-2021 THERAPY NT Normal [facility] THERAPY NT Normal [facility] Urinalysis complete panel (U )on 08-05-2021 Bilirubin Ql (U) Negative Normal Negative [facility] Comment on above: Order Comment: Speci men Type: URINE SPECIMENOrdering Facility: [facility] Address: [address] [place] [address] Performed By: #### 2 4356-8 ####[facility] LABORATORYCLIA [id number] [address] Clarity (Unsp spec) Clear Normal Clear [facility] Comment on above: Order Comment: Speci men Type: URINE SPECIMENOrdering Facility: [facility] Address: [address] [place] [address] Performed By: #### 2 4356-8 ####[facility]ITALCLIA [id number] [address] Color (U) Light Yellow Normal yellow [facility] Comment on above: Order Comment: Speci men Type: URINE SPECIMENOrdering Facility: [facility] Address: [address] [place] [address] Performed By: #### 2 4356-8 ####[facility] LABORATORYCLIA [id number] [address] Epithelial cells LM.HPF (Urine sed) [#/Area] Few Abnormal None Seen [facility] Comment on above: Order Comment: Speci men Type: URINE SPECIMENOrdering Facility: [facility] Address: [address] [place] [address] Performed By: #### 2 4356-8 ####[facility] LABORATORYCLIA [id number] [address] Glucose Test strip (U) [Mass/Vol] Negative Normal Negative [facility] Comment on above: Order Comment: Speci men Type: URINE SPECIMENOrdering Facility: [facility] Address: [address] [place] [address] Performed By: #### 2 4356-8 ####[facility]ORATORYCLIA [id number] [address] Hemoglobin Ql (U) Negative Normal Negative [facility] Comment on above: Order Comment: Speci men Type: URINE SPECIMENOrdering Facility: [facility] Address: [address] [place] [address] Performed By: #### 2 4356-8 ####[facility] LABORATORYCLIA [id number] [address] Hyaline casts (Urine sed) [#/Area] 1-3 /LPF Abnormal 0 /LPF [facility] Comment on above: Order Comment: Speci men Type: URINE SPECIMENOrdering Facility: [facility] Address: [address] [place] [address] Performed By: #### 2 4356-8 ####[facility] LABORATORYCLIA [id number] [address] STATES [facility] Ketones Ql (U) Negative Normal Negative [facility] Comment on above: Order Comment: Speci men Type: URINE SPECIMENOrdering Facility: [facility] Address: [address] [place] [address] Performed By: #### 2 4356-8 ####[facility] LABORATORYCLIA [id number] [address] Leukocyte esterase Test strip Ql (U) Negative Normal Negative [facility] Comment on above: Order Comment: Speci men Type: URINE SPECIMENOrdering Facility: [facility] Address: [facility] [place] [address] Performed By: #### 2 4356-8 ####[facility]ATORYCLIA [id number] [address] STATES [facility] Nitrite Ql (U) Negative Normal Negative [facility] Comment on above: Order Comment: Speci men Type: URINE SPECIMENOrdering Facility: [facility] Address: [facility] [place] [address] Performed By: #### 2 4356-8 ####[facility] LABORATORYCLIA [id number] [address] STATES [facility] pH (U) 6.0 [pH] Normal 5.0-8.0 [facility] Comment on above: Order Comment: Speci men Type: URINE SPECIMENOrdering Facility: [facility] Address: [address] [place] [address] Performed By: #### 2 4356-8 ####[facility] LABORATORYCLIA [id number] [address] [place] Protein (U) [Mass/Vol] Negative Normal Negative [facility] Comment on above: Order Comment: Speci men Type: URINE SPECIMENOrdering Facility: [facility] Address: [address] [place] [address] Performed By: #### 2 4356-8 ####[facility]PITALCLIA [id number] [address] STATES [facility] RBC LM.HPF (Urine sed) [#/Area] 0-3 /HPF Normal 0-3 /HPF [facility] Comment on above: Order Comment: Speci men Type: URINE SPECIMENOrdering Facility: [facility] Address: [address] [place] [address] Performed By: #### 2 4356-8 ####[facility] LABORATORYCLIA [id number] [address] Specific gravity (U) [Rel density] 1.015 Normal 1.005-1.030 [facility] Comment on above: Order Comment: Speci men Type: URINE SPECIMENOrdering Facility: [facility] Address: [address] [place] [address] Performed By: #### 2 4356-8 ####[facility] LABORATORYCLIA [id number] [address] Urobilinogen Ql (U) Normal Normal Negative [facility] Comment on above: Order Comment: Speci men Type: URINE SPECIMENOrdering Facility: [facility] Address: [address] [address] Performed By: #### 2 4356-8 ####[facility] LABORATORYCLIA [id number] [address] WBC LM.HPF (Urine sed) [#/Area] 0-5 /HPF Normal 0-5 /HPF [facility] Comment on above: Order Comment: Speci men Type: URINE SPECIMENOrdering Facility: [facility] Address: [address] [place] [address] Performed By: #### 2 4356-8 ####[facility] LABORATORYCLIA [id number] [address] XR ABDOMEN 1V SUPINEon 08-05 XR [...] By: #### 6 00-7 ####[facility] LABORATORYCLIA [id number] [address] Bacteria identified Cx Nom (Bld) CULTURE, BLOOD: No growth 5 days Normal [facility] Comment on above: Performed By: #### 6 00-7 ####[facility] LABORATORYCLIA [id number] [address] CBC W Auto Differential pane l (Bld)on 08-04-2021 Basophils (Bld) [#/Vol] 0.05 10*3/uL Normal <0.11 [facility] Comment on above: Order Comment: Speci men Type: BLOOD SPECIMENOrdering Facility: [facility] Address: [address] [place] [address] Performed By: #### 5 7021-8 ####[facility]ORATORYCLIA [id number] [address] Basophils/100 WBC (Bld) 0.4 % Normal [facility] Comment on above: Order Comment: Speci men Type: BLOOD SPECIMENOrdering Facility: [facility] Address: [address] [place] [address] Performed By: #### 5 7021-8 ####[facility] LABORATORYCLIA [id number] [address] Differential cell count method Nom (Bld) Auto Normal [facility] Comment on above: Order Comment: Speci men Type: BLOOD SPECIMENOrdering Facility: [facility] Address: [address] [place] [address] Performed By: #### 5 7021-8 ####[facility] LABORATORYCLIA [id number] [address] [place] Eosinophils (Bld) [#/Vol] 0.21 10*3/uL Normal <0.46 [facility] Comment on above: Order Comment: Speci men Type: BLOOD SPECIMENOrdering Facility: [facility] Address: [address] [place] [address] Performed By: #### 5 7021-8 ####[facility] LABORATORYCLIA [id number] [address] Eosinophils/100 WBC (Bld) 1.7 % Normal [facility] Comment on above: Order Comment: Speci men Type: BLOOD SPECIMENOrdering Facility: [facility] Address: [address] [place] [address] Performed By: #### 5 7021-8 ####[facility]ORATORYCLIA [id number] [address] [place] Erythrocyte distribution width (RBC) [Ratio] 18.1 % High 11.5-15.0 [facility] Comment on above: Order Comment: Speci men Type: BLOOD SPECIMENOrdering Facility: [facility] Address: [address] [place] [address] Performed By: #### 5 7021-8 ####[facility] LABORATORYCLIA [id number] [address] OF [facility] Hematocrit (Bld) [Volume fraction] 32.0 % Low 39.0-51.0 [facility] Comment on above: Order Comment: Speci men Type: BLOOD SPECIMENOrdering Facility: [facility] Address: [address] [place] [address] Performed By: #### 5 7021-8 ####[facility] LABORATORYCLIA [id number] [address] Hemoglobin (Bld) [Mass/Vol] 10.0 g/dL Low 13.0-17.0 [facility] Comment on above: Order Comment: Speci men Type: BLOOD SPECIMENOrdering Facility: [facility] Address: [address] [place] [address] Performed By: #### 5 7021-8 ####[facility] LABORATORYCLIA [id number] [address] IMMATURE GRAN % 0.6 % Normal [facility] Comment on above: Order Comment: Speci men Type: BLOOD SPECIMENOrdering Facility: [facility] Address: [address] [place] [address] Performed By: #### 5 7021-8 ####[facility] LABORATORYCLIA [id number] [address] IMMATURE GRAN ABS 0.08 k/uL Normal <0.10 [facility] Comment on above: Order Comment: Speci men Type: BLOOD SPECIMENOrdering Facility: [facility] Address: [address] [place] [address] Performed By: #### 5 7021-8 ####[facility] LABORATORYCLIA [id number] [address] [place] Lymphocytes (Bld) [#/Vol] 2.55 10*3/uL Normal 1.00-4.00 [facility] Comment on above: Order Comment: Speci men Type: BLOOD SPECIMENOrdering Facility: [facility] Address: [address] [place] [address] Performed By: #### 5 7021-8 ####[facility] LABORATORYCLIA [id number] [address] OF [facility] Lymphocytes/100 WBC (Bld) 20.5 % Normal [facility] Comment on above: Order Comment: Speci men Type: BLOOD SPECIMENOrdering Facility: [facility] Address: [address] [place] [address] Performed By: #### 5 7021-8 ####[facility] LABORATORYCLIA [id number] [address] [place] [facility] MCH (RBC) [Entitic mass] 28.9 pg Normal 26.0-34.0 [facility] Comment on above: Order Comment: Speci men Type: BLOOD SPECIMENOrdering Facility: [facility] Address: [address] [place] [address] Performed By: #### 5 7021-8 ####[facility] LABORATORYCLIA [id number] [address] [place] MCHC (RBC) [Mass/Vol] 31.3 g/dL Normal 30.5-36.0 [facility] Comment on above: Order Comment: Speci men Type: BLOOD SPECIMENOrdering Facility: [facility] Address: [address] [place] [address] Performed By: #### 5 7021-8 ####[facility] LABORATORYCLIA [id number] [address] STATES [facility] MCV (RBC) [Entitic vol] 92.5 fL Normal 80.0-100.0 [facility] Comment on above: Order Comment: Speci men Type: BLOOD SPECIMENOrdering Facility: [facility] Address: [address] [place] [address] Performed By: #### 5 7021-8 ####[facility]ATORYCLIA [id number] [address] [place] Monocytes (Bld) [#/Vol] 0.85 10*3/uL Normal <0.87 [facility] Comment on above: Order Comment: Speci men Type: BLOOD SPECIMENOrdering Facility: [facility] Address: [address] [place] [address] Performed By: #### 5 7021-8 ####[facility] LABORATORYCLIA [id number] [address] [place] Monocytes/100 WBC (Bld) 6.8 % Normal [facility] Comment on above: Order Comment: Speci men Type: BLOOD SPECIMENOrdering Facility: [facility] Address: [address] [place] [address] Performed By: #### 5 7021-8 ####[facility] LABORATORYCLIA [id number] [address] [place] Neutrophils (Bld) [#/Vol] 8.68 10*3/uL High 1.45-7.50 [facility] Comment on above: Order Comment: Speci men Type: BLOOD SPECIMENOrdering Facility: [facility] Address: [address] [place] [address] Performed By: #### 5 7021-8 ####[facility]ORYCLIA [id number] [address] [place] Neutrophils/100 WBC (Bld) 70.0 % Normal [facility] Comment on above: Order Comment: Speci men Type: BLOOD SPECIMENOrdering Facility: [facility] Address: [address] [place] [address] Performed By: #### 5 7021-8 ####[facility]ORYCLIA [id number] [address] [place] Nucleated RBC (Bld) [#/Vol] 10*3/uL Normal <0.01 [facility] Comment on above: Order Comment: Speci men Type: BLOOD SPECIMENOrdering Facility: [facility] Address: [address] [address] Performed By: #### 5 7021-8 ####[facility] LABORATORYCLIA [id number] [address] [place] Nucleated RBC/100 WBC (Bld) [Ratio] 0.0 /100 WBC Normal [facility] Comment on above: Order Comment: Speci men Type: BLOOD SPECIMENOrdering Facility: [facility] Address: [address] [place], [place] [address] Performed By: #### 5 7021-8 ####[facility] LABORATORYCLIA [id number] [place] [address] [place] Platelet mean volume (Bld) [Entitic vol] 10.0 fL Normal 9.0-12.7 [facility] Comment on above: Order Comment: Speci men Type: BLOOD SPECIMENOrdering Facility: [facility] Address: [address] [place] [address] Performed By: #### 5 7021-8 ####[facility] LABORATORYCLIA [id number] [place] [address] [place] Platelets (Bld) [#/Vol] 393 10*3/uL Normal 150-400 [facility] Comment on above: Order Comment: Speci men Type: BLOOD SPECIMENOrdering Facility: [facility] Address: [address] Performed By: #### 5 7021-8 ####[facility] LABORATORYCLIA [id number] [place] [address] [place] RBC (Bld) [#/Vol] 3.46 10*6/uL Low 4.20-6.00 [facility] Comment on above: Order Comment: Speci men Type: BLOOD SPECIMENOrdering Facility: [facility] Address: [address] [place] [address] Performed By: #### 5 7021-8 ####[facility] LABORATORYCLIA [id number] [address] [place] [facility] WBC (Bld) [#/Vol] 12.42 10*3/uL High 3.70-11.00 [facility] Comment on above: Order Comment: Speci men Type: BLOOD SPECIMENOrdering Facility: [facility] Address: [address] [place] [address] Performed By: #### 5 7021-8 ####[facility] LABORATORYCLIA [id number] [address] BRAIN WO IVCONon 08-05-19 CT BRAIN WO IVCON Normal [facility] Lactate (Bld) [Moles/Vol]on 08-04-2021 Lactate [Moles/Vol] 1.4 mmol/L Normal 0.5-2.2 [facility] Comment on above: Order Comment: Speci men Type: BLOOD SPECIMENOrdering Facility: [facility] Address: [address] [place] [address] Performed By: #### 3 2693-4 ####[facility] LABORATORYCLIA [id number] [address] PROCALCITONIN (LAB)on 2021 Procalcitonin [Mass/Vol] 0.08 ng/mL Normal <0.09 [facility] Comment on above: Order Comment: Speci men Type: BLOOD SPECIMENOrdering Facility: [facility] Address: [address] [place] [address] Result Comment: For a guided interpretation of test results, please visit the Change in Procalcitonin Calculator, [email or web address]. Performed By: #### P ROCAL ####[facility] LABORATORYCLIA [id number] [address] Prealbumin [Mass/Vol]on 07-07 Prealbumin Nephelometry [Mass/Vol] 35 mg/dL Normal 17-36 [facility] Comment on above: Order Comment: Speci men Type: BLOOD SPECIMENOrdering Facility: [facility] Address: [address] [place] [address] Performed By: #### 1 4338-8 ####[facility] LABORATORYCLIA [id number] [address] SARS-CoV-2 RNA Resp Ql MEGAN+p robeon 08-04-2021 SARS-CoV-2 (COVID-19) RNA MEGAN+probe Ql (Resp) COVID 19 RESULT: SARS-CoV-2 (Agent of COVID-19) Not Detected by RT-PCR or equivalent method. This test has been authorized by FDA under an Emergency Use Authorization (EUA). [facility] Comment on above: Performed By: #### 9 4500-6 ####[facility] LABORATORYCLIA [id number] [address] TYPE AND SCREENon 08-04-2021 ABO O [facility] Comment on above: Order Comment: Speci men Type: BLOOD SPECIMENOrdering Facility: [facility] Address: [address] [place] [address] Performed By: #### T SCR ####[facility] BLOOD BANKCLIA [id number] [address] HISTORICAL AB SCR STATUS Negative [facility] Comment on above: Order Comment: Speci men Type: BLOOD SPECIMENOrdering Facility: [facility] Address: [address] [place] [address] Performed By: #### T SCR ####[facility] BLOOD BANKCLIA [id number] [address] Rh Nom (Bld) Positive [facility] Comment on above: Order Comment: Speci men Type: BLOOD SPECIMENOrdering Facility: [facility] Address: [address] [place] [address] Performed By: #### T SCR ####[facility] BLOOD BANKCLIA [id number] [address] TYPE AND SCREEN EXPIRATION 08/07/2021 23:59 Normal [facility] Comment on above: Order Comment: Speci men Type: BLOOD SPECIMENOrdering Facility: [facility] Address: [address] [place] [address] Performed By: #### T SCR ####[facility] BLOOD BANKCLIA [id number] [place] [address] [place] aPTT PPPon 08-04-2021 aPTT Coag (PPP) [Time] 51.8 s High 23.0-32.4 [facility] Comment on above: Order Comment: Speci men Type: BLOOD SPECIMENOrdering Facility: [facility] Address: [address] [place] [address] Performed By: #### 1 4979-9 ####[facility] LABORATORYCLIA [id number] [place] [address] [place] Basic metabolic 2000 panelon 08-03-2021 Anion gap [Moles/Vol] 9 mmol/L Normal 9-18 [facility] Comment on above: Order Comment: Speci men Type: BLOOD SPECIMENOrdering Facility: [facility] Address: [address] [place] [address] Performed By: #### 2 4321-2, 71567-8, 2777-1 ####[facility] LABORATORYCLIA [id number] [place] [address] [place] Calcium [Mass/Vol] 9.3 mg/dL Normal 8.5-10.2 [facility] Comment on above: Order Comment: Speci men Type: BLOOD SPECIMENOrdering Facility: [facility] Address: [address] [place] [address] Performed By: #### 2 4321-2, 24736-6, 2777-1 ####[facility] LABORATORYCLIA [id number] [place] [address] [place] Chloride [Moles/Vol] 97 mmol/L Normal 97-105 [facility] Comment on above: Order Comment: Speci men Type: BLOOD SPECIMENOrdering Facility: [facility] Address: [address] [place] [address] Performed By: #### 2 4321-2, , 2776-05 ####[facility] LABORATORYCLIA [id number] [place] [address] [place] CO2 [Moles/Vol] 27 mmol/L Normal 22-30 [facility] Comment on above: Order Comment: Speci men Type: BLOOD SPECIMENOrdering Facility: [facility] Address: [address] [place] [address] Performed By: #### 2 4321-2, , 2776-05 ####[facility] LABORATORYCLIA [id number] [place] [address] [place] [facility] Creatinine [Mass/Vol] 0.63 mg/dL Low 0.73-1.22 [facility] Comment on above: Order Comment: Speci men Type: BLOOD SPECIMENOrdering Facility: [facility] Address: [address] [place] [address] Performed By: #### 2 4321-2, , 2776-05 ####[facility]PITALCLIA [id number] [address] [place] [facility] ESTIMATED GLOMERULAR FILTRATION RATE 103 mL/min/1.73m??? Normal >=60 [facility] Comment on above: Order Comment: Speci men Type: BLOOD SPECIMENOrdering Facility: [facility] Address: [address] [place] [address] Result Comment: Luzmaria mated Glomerular Filtration Rate [...] 2 4321-2, , 2776-05 ####[facility] LABORATORYCLIA [id number] [place] [address] [place] Glucose [Mass/Vol] 136 mg/dL High 74-99 [facility] Comment on above: Order Comment: Shira feldman Type: BLOOD SPECIMENOrdering Facility: [facility] Address: [address] [place], [place] [id number] Result Comment: The [place] Diabetes Association (ADA) provides guidance for cutoff [...] Standards of Medical Care in Diabetes 2016, [place] Diabetes Association. Diabetes Care. 2016.39(Suppl 1). Performed By: #### 2 4321-2, , 2776-05 ####[facility] LABORATORYCLIA [id number] [place] [address] [place] Potassium [Moles/Vol] 4.1 mmol/L Normal 3.7-5.1 [facility] Comment on above: Order Comment: Shira feldman Type: BLOOD SPECIMENOrdering Facility: [facility] Address: [address] [place], [place] [id number] Performed By: #### 2 4321-2, , 2776-05 ####[facility] LABORATORYCLIA [id number] [place] [address] [place] Sodium [Moles/Vol] 133 mmol/L Low 136-144 [facility] Comment on above: Order Comment: Shira feldman Type: BLOOD SPECIMENOrdering Facility: [facility] Address: [address] [place], [place] [id number] Performed By: #### 2 4321-2, , 2776-05 ####[facility] LABORATORYCLIA [id number] [place] [address] [place] Urea nitrogen [Mass/Vol] 40 mg/dL High 9-24 [facility] Comment on above: Order Comment: Speci men Type: BLOOD SPECIMENOrdering Facility: [facility] Address: [address] [place] [address] Performed By: #### 2 4321-2, 37741-3, 2777-1 ####[facility] LABORATORYCLIA [id number] [address] [place] CASE MANAGEMon 08-03-2021 CASE MANAGEM Normal [facility] CBC W Auto Differential pane l (Bld)on 08-03-2021 Basophils (Bld) [#/Vol] 0.06 10*3/uL Normal <0.11 [facility] Comment on above: Order Comment: Speci men Type: BLOOD SPECIMENOrdering Facility: [facility] Address: [address] [place] [address] Performed By: #### 5 7021-8 ####[facility] LABORATORYCLIA [id number] [place] [address] [place] Basophils/100 WBC (Bld) 0.5 % Normal [facility] Comment on above: Order Comment: Speci men Type: BLOOD SPECIMENOrdering Facility: [facility] Address: [address] [place] [address] Performed By: #### 5 7021-8 ####[facility] LABORATORYCLIA [id number] [address] [place] Differential cell count method Nom (Bld) Auto Normal [facility] Comment on above: Order Comment: Speci men Type: BLOOD SPECIMENOrdering Facility: [facility] Address: [address] [place] [address] Performed By: #### 5 7021-8 ####[facility] LABORATORYCLIA [id number] [place] [address] [place] Eosinophils (Bld) [#/Vol] 0.23 10*3/uL Normal <0.46 [facility] Comment on above: Order Comment: Speci men Type: BLOOD SPECIMENOrdering Facility: [facility] Address: [address] [place] [address] Performed By: #### 5 7021-8 ####[facility] LABORATORYCLIA [id number] [address] STATES [facility] Eosinophils/100 WBC (Bld) 1.8 % Normal [facility] Comment on above: Order Comment: Speci men Type: BLOOD SPECIMENOrdering Facility: [facility] Address: [address] [place] [address] Performed By: #### 5 7021-8 ####[facility] LABORATORYCLIA [id number] [address] [place] Erythrocyte distribution width (RBC) [Ratio] 17.6 % High 11.5-15.0 [facility] Comment on above: Order Comment: Speci men Type: BLOOD SPECIMENOrdering Facility: [facility] Address: [address] [place] [address] Performed By: #### 5 7021-8 ####[facility] LABORATORYCLIA [id number] [address] Hematocrit (Bld) [Volume fraction] 30.7 % Low 39.0-51.0 [facility] Comment on above: Order Comment: Speci men Type: BLOOD SPECIMENOrdering Facility: [facility] Address: [address] [place] [address] Performed By: #### 5 7021-8 ####[facility] LABORATORYCLIA [id number] [address] [place] Hemoglobin (Bld) [Mass/Vol] 9.3 g/dL Low 13.0-17.0 [facility] Comment on above: Order Comment: Speci men Type: BLOOD SPECIMENOrdering Facility: [facility] Address: [address] [place] [address] Performed By: #### 5 7021-8 ####[facility] LABORATORYCLIA [id number] [address] [place] IMMATURE GRAN % 0.6 % Normal [facility] Comment on above: Order Comment: Speci men Type: BLOOD SPECIMENOrdering Facility: [facility] Address: [address] [place] [address] Performed By: #### 5 7021-8 ####[facility] LABORATORYCLIA [id number] [address] IMMATURE GRAN ABS 0.08 k/uL Normal <0.10 [facility] Comment on above: Order Comment: Speci men Type: BLOOD SPECIMENOrdering Facility: [facility] Address: [address] [place] [address] Performed By: #### 5 7021-8 ####[facility] LABORATORYCLIA [id number] [address] Lymphocytes (Bld) [#/Vol] 2.45 10*3/uL Normal 1.00-4.00 [facility] Comment on above: Order Comment: Speci men Type: BLOOD SPECIMENOrdering Facility: [facility] Address: [address] [place] [address] Performed By: #### 5 7021-8 ####[facility] LABORATORYCLIA [id number] [address] Lymphocytes/100 WBC (Bld) 19.7 % Normal [facility] Comment on above: Order Comment: Speci men Type: BLOOD SPECIMENOrdering Facility: [facility] Address: [address] [place] [address] Performed By: #### 5 7021-8 ####[facility] LABORATORYCLIA [id number] [address] MCH (RBC) [Entitic mass] 28.2 pg Normal 26.0-34.0 [facility] Comment on above: Order Comment: Speci men Type: BLOOD SPECIMENOrdering Facility: [facility] Address: [address] [place] [address] Performed By: #### 5 7021-8 ####[facility] LABORATORYCLIA [id number] [address] MCHC (RBC) [Mass/Vol] 30.3 g/dL Low 30.5-36.0 [facility] Comment on above: Order Comment: Speci men Type: BLOOD SPECIMENOrdering Facility: [facility] Address: [address] [place] [address] Performed By: #### 5 7021-8 ####[facility] LABORATORYCLIA [id number] [address] [place] [facility] MCV (RBC) [Entitic vol] 93.0 fL Normal 80.0-100.0 [facility] Comment on above: Order Comment: Speci men Type: BLOOD SPECIMENOrdering Facility: [facility] Address: [address] [place] [address] Performed By: #### 5 7021-8 ####[facility] LABORATORYCLIA [id number] [address] [place] Monocytes (Bld) [#/Vol] 0.72 10*3/uL Normal <0.87 [facility] Comment on above: Order Comment: Speci men Type: BLOOD SPECIMENOrdering Facility: [facility] Address: [address] [place] [address] Performed By: #### 5 7021-8 ####[facility] LABORATORYCLIA [id number] [address] Monocytes/100 WBC (Bld) 5.8 % Normal [facility] Comment on above: Order Comment: Speci men Type: BLOOD SPECIMENOrdering Facility: [facility] Address: [address] [place] [address] Performed By: #### 5 7021-8 ####[facility] LABORATORYCLIA [id number] [address] [place] Neutrophils (Bld) [#/Vol] 8.92 10*3/uL High 1.45-7.50 [facility] Comment on above: Order Comment: Speci men Type: BLOOD SPECIMENOrdering Facility: [facility] Address: [address] [place] [address] Performed By: #### 5 7021-8 ####[facility] LABORATORYCLIA [id number] [address] [place] Neutrophils/100 WBC (Bld) 71.6 % Normal [facility] Comment on above: Order Comment: Speci men Type: BLOOD SPECIMENOrdering Facility: [facility] Address: [address] [place] [address] Performed By: #### 5 7021-8 ####[facility] LABORATORYCLIA [id number] [address] Nucleated RBC (Bld) [#/Vol] 10*3/uL Normal <0.01 [facility] Comment on above: Order Comment: Speci men Type: BLOOD SPECIMENOrdering Facility: [facility] Address: [address] [place] [address] Performed By: #### 5 7021-8 ####[place] [facility] LABORATORYCLIA [id number] [address] Nucleated RBC/100 WBC (Bld) [Ratio] 0.0 /100 WBC Normal [facility] Comment on above: Order Comment: Speci men Type: BLOOD SPECIMENOrdering Facility: [facility] Address: [address] [place] [address] Performed By: #### 5 7021-8 ####[facility]ORATORYCLIA [id number] [address] [place] Platelet mean volume (Bld) [Entitic vol] 10.2 fL Normal 9.0-12.7 [facility] Comment on above: Order Comment: Speci men Type: BLOOD SPECIMENOrdering Facility: [facility] Address: [address] [place] [address] Performed By: #### 5 7021-8 ####[facility]ORATORYCLIA [id number] [address] [place] Platelets (Bld) [#/Vol] 352 10*3/uL Normal 150-400 [facility] Comment on above: Order Comment: Speci men Type: BLOOD SPECIMENOrdering Facility: [facility] Address: [address] [place] [address] Performed By: #### 5 7021-8 ####[facility] LABORATORYCLIA [id number] [address] RBC (Bld) [#/Vol] 3.30 10*6/uL Low 4.20-6.00 [facility] Comment on above: Order Comment: Speci men Type: BLOOD SPECIMENOrdering Facility: [facility] Address: [address] [place] [address] Performed By: #### 5 7021-8 ####[facility] LABORATORYCLIA [id number] [address] WBC (Bld) [#/Vol] 12.46 10*3/uL High 3.70-11.00 [facility] Comment on above: Order Comment: Speci men Type: BLOOD SPECIMENOrdering Facility: [facility] Address: [address] [place] [address] Performed By: #### 5 7021-8 ####[facility] LABORATORYCLIA [id number] [address] CONSULT PROGon 08-03-2021 CONSULT PROG Normal [facility] Magnesium SerPl-mCncon 08-03 Magnesium [Mass/Vol] 2.2 mg/dL Normal 1.7-2.3 [facility] Comment on above: Order Comment: Speci men Type: BLOOD SPECIMENOrdering Facility: [facility] Address: [address] [place] [address] Performed By: #### 2 4321-2, 88384-1, 2777-1 ####[facility]ORATORYCLIA [id number] [address] NURSING PROGon 08-03-2021 NURSING PROG Normal [facility] Phosphate SerPl-mCncon 08-03 Phosphate [Mass/Vol] 4.2 mg/dL Normal 2.7-4.8 [facility] Comment on above: Order Comment: Speci men Type: BLOOD SPECIMENOrdering Facility: [facility] Address: [address] [place] [address] Performed By: #### 2 4321-2, 20524-9, 2777-1 ####[facility]ORATORYCLIA [id number] [address] [place] aPTT PPPon 08-03-2021 aPTT Coag (PPP) [Time] 50.0 s High 23.0-32.4 [facility] Comment on above: Order Comment: Speci men Type: BLOOD SPECIMENOrdering Facility: [facility] Address: [address] [place] [address] Performed By: #### 1 4979-9 ####[facility] LABORATORYCLIA [id number] [address] STATES [place] [facility] CBC W Auto Differential pane l (Bld)on 08-02-2021 Basophils (Bld) [#/Vol] 10*3/uL Normal <0.11 [facility] Comment on above: Order Comment: Speci men Type: BLOOD SPECIMENOrdering Facility: [facility] Address: [address] [place] [address] Performed By: #### 5 7021-8 ####[facility] LABORATORYCLIA [id number] [address] STATES [place] [facility] Basophils/100 WBC (Bld) 0.2 % Normal [facility] Comment on above: Order Comment: Speci men Type: BLOOD SPECIMENOrdering Facility: [facility] Address: [address] [place] [address] Performed By: #### 5 7021-8 ####[facility] LABORATORYCLIA [id number] [address] Differential cell count method Nom (Bld) Auto Normal [facility] Comment on above: Order Comment: Speci men Type: BLOOD SPECIMENOrdering Facility: [facility] Address: [address] [place] [address] Performed By: #### 5 7021-8 ####[facility]ORYCLIA [id number] [address] [place] Eosinophils (Bld) [#/Vol] 10*3/uL Normal <0.46 [facility] Comment on above: Order Comment: Speci men Type: BLOOD SPECIMENOrdering Facility: [facility] Address: [address] [place] [address] Performed By: #### 5 7021-8 ####[facility] LABORATORYCLIA [id number] [address] Eosinophils/100 WBC (Bld) 0.0 % Normal [facility] Comment on above: Order Comment: Speci men Type: BLOOD SPECIMENOrdering Facility: [facility] Address: [address] [place] [address] Performed By: #### 5 7021-8 ####[facility] LABORATORYCLIA [id number] [address] Erythrocyte distribution width (RBC) [Ratio] 17.3 % High 11.5-15.0 [facility] Comment on above: Order Comment: Speci men Type: BLOOD SPECIMENOrdering Facility: [facility] Address: [address] [place] [address] Performed By: #### 5 7021-8 ####[facility] LABORATORYCLIA [id number] [address] [place] Hematocrit (Bld) [Volume fraction] 30.8 % Low 39.0-51.0 [facility] Comment on above: Order Comment: Speci men Type: BLOOD SPECIMENOrdering Facility: [facility] Address: [address] [place] [address] Performed By: #### 5 7021-8 ####[facility]ORATORYCLIA [id number] [address] [place] Hemoglobin (Bld) [Mass/Vol] 9.7 g/dL Low 13.0-17.0 [facility] Comment on above: Order Comment: Speci men Type: BLOOD SPECIMENOrdering Facility: [facility] Address: [address] [place] [address] Performed By: #### 5 7021-8 ####[facility]ORYCLIA [id number] [address] IMMATURE GRAN % 0.5 % Normal [facility] Comment on above: Order Comment: Speci men Type: BLOOD SPECIMENOrdering Facility: [facility] Address: [address] [place] [address] Performed By: #### 5 7021-8 ####[facility]ORATORYCLIA [id number] [address] IMMATURE GRAN ABS 0.07 k/uL Normal <0.10 [facility] Comment on above: Order Comment: Speci men Type: BLOOD SPECIMENOrdering Facility: [facility] Address: [address] [place] [address] Performed By: #### 5 7021-8 ####[facility] LABORATORYCLIA [id number] [address] Lymphocytes (Bld) [#/Vol] 1.60 10*3/uL Normal 1.00-4.00 [facility] Comment on above: Order Comment: Speci men Type: BLOOD SPECIMENOrdering Facility: [facility] Address: [address] [place] [address] Performed By: #### 5 7021-8 ####[facility]ORATORYCLIA [id number] [address] Lymphocytes/100 WBC (Bld) 12.1 % Normal [facility] Comment on above: Order Comment: Speci men Type: BLOOD SPECIMENOrdering Facility: [facility] Address: [address] [place] [address] Performed By: #### 5 7021-8 ####[facility]ATORYCLIA [id number] [address] [place] MCH (RBC) [Entitic mass] 28.6 pg Normal 26.0-34.0 [facility] Comment on above: Order Comment: Speci men Type: BLOOD SPECIMENOrdering Facility: [facility] Address: [address] [place] [address] Performed By: #### 5 7021-8 ####[facility]ORATORYCLIA [id number] [address] [place] MCHC (RBC) [Mass/Vol] 31.5 g/dL Normal 30.5-36.0 [facility] Comment on above: Order Comment: Speci men Type: BLOOD SPECIMENOrdering Facility: [facility] Address: [address] [place] [address] Performed By: #### 5 7021-8 ####[facility]ORATORYCLIA [id number] [address] [place] MCV (RBC) [Entitic vol] 90.9 fL Normal 80.0-100.0 [facility] Comment on above: Order Comment: Speci men Type: BLOOD SPECIMENOrdering Facility: [facility] Address: [address] [place] [address] Performed By: #### 5 7021-8 ####[facility]ORATORYCLIA [id number] [address] [place] Monocytes (Bld) [#/Vol] 0.39 10*3/uL Normal <0.87 [facility] Comment on above: Order Comment: Speci men Type: BLOOD SPECIMENOrdering Facility: [facility] Address: [address] [place] [address] Performed By: #### 5 7021-8 ####[facility]ORATORYCLIA [id number] [address] Monocytes/100 WBC (Bld) 3.0 % Normal [facility] Comment on above: Order Comment: Speci men Type: BLOOD SPECIMENOrdering Facility: [facility] Address: [address] [place] [address] Performed By: #### 5 7021-8 ####[facility]ORATORYCLIA [id number] [address] [place] Neutrophils (Bld) [#/Vol] 11.09 10*3/uL High 1.45-7.50 [facility] Comment on above: Order Comment: Speci men Type: BLOOD SPECIMENOrdering Facility: [facility] Address: [address] [place] [address] Performed By: #### 5 7021-8 ####[facility]ORATORYCLIA [id number] [address] [place] Neutrophils/100 WBC (Bld) 84.2 % Normal [facility] Comment on above: Order Comment: Speci men Type: BLOOD SPECIMENOrdering Facility: [facility] Address: [address] [place] [address] Performed By: #### 5 7021-8 ####[facility]ORATORYCLIA [id number] [address] [place] Nucleated RBC (Bld) [#/Vol] 10*3/uL Normal <0.01 [facility] Comment on above: Order Comment: Speci men Type: BLOOD SPECIMENOrdering Facility: [facility] Address: [address] [place] [address] Performed By: #### 5 7021-8 ####[facility]ORATORYCLIA [id number] [address] [place] Nucleated RBC/100 WBC (Bld) [Ratio] 0.0 /100 WBC Normal [facility] Comment on above: Order Comment: Speci men Type: BLOOD SPECIMENOrdering Facility: [facility] Address: [address] [place] [address] Performed By: #### 5 7021-8 ####[facility]ORATORYCLIA [id number] [address] [place] Platelet mean volume (Bld) [Entitic vol] 10.0 fL Normal 9.0-12.7 [facility] Comment on above: Order Comment: Speci men Type: BLOOD SPECIMENOrdering Facility: [facility] Address: [address] [address] Performed By: #### 5 7021-8 ####[facility]ORATORYCLIA [id number] [address] Platelets (Bld) [#/Vol] 358 10*3/uL Normal 150-400 [facility] Comment on above: Order Comment: Speci men Type: BLOOD SPECIMENOrdering Facility: [facility] Address: [address] [place] [address] Performed By: #### 5 7021-8 ####[facility]ORATORYCLIA [id number] [address] [place] RBC (Bld) [#/Vol] 3.39 10*6/uL Low 4.20-6.00 [facility] Comment on above: Order Comment: Speci men Type: BLOOD SPECIMENOrdering Facility: [facility] Address: [address] [place] [address] Performed By: #### 5 7021-8 ####[facility]ORATORYCLIA [id number] [address] WBC (Bld) [#/Vol] 13.17 10*3/uL High 3.70-11.00 [facility] Comment on above: Order Comment: Speci men Type: BLOOD SPECIMENOrdering Facility: [facility] Address: [address] [place] [address] Performed By: #### 5 7021-8 ####[facility]ORATORYCLIA [id number] [address] OF [facility] NURSING PROGon 08-02-2021 NURSING PROG Normal [facility] THERAPY NTon 08-02-2021 THERAPY NT Normal [facility] aPTT PPPon 08-02-2021 aPTT Coag (PPP) [Time] 54.9 s High 23.0-32.4 [facility] Comment on above: Order Comment: Speci men Type: BLOOD SPECIMENOrdering Facility: [facility] Address: [address] [place] [address] Performed By: #### 1 4979-9 ####[facility]ORATORYCLIA [id number] [place] [address] [place] ALLIED HEALTHon 08-01-2021 ALLIED HEALTH Normal [facility] ALLIED HEALTH Normal [facility] Basic metabolic 2000 panelon 08-01-2021 Anion gap [Moles/Vol] 12 mmol/L Normal 9-18 [facility] Comment on above: Order Comment: Speci men Type: BLOOD SPECIMENOrdering Facility: [facility] Address: [address] [place] [address] Performed By: #### 2 4321-2, 03274-9, 76347-5, 2777-1 ####[facility]ORATORYCLIA [id number] [place] [address] [place] Calcium [Mass/Vol] 9.1 mg/dL Normal 8.5-10.2 [facility] Comment on above: Order Comment: Speci men Type: BLOOD SPECIMENOrdering Facility: [facility] Address: [address] [place] [address] Performed By: #### 2 4321-2, 60831-0, 52171-3, 2777-1 ####[facility] LABORATORYCLIA [id number] [place] [address] [place] Chloride [Moles/Vol] 96 mmol/L Low 97-105 [facility] Comment on above: Order Comment: Speci men Type: BLOOD SPECIMENOrdering Facility: [facility] Address: [address] [place] [address] Performed By: #### 2 4321-2, 50905-3, 40779-3, 2777-1 ####[facility]ORATORYCLIA [id number] [place] [address] [place] CO2 [Moles/Vol] 27 mmol/L Normal 22-30 [facility] Comment on above: Order Comment: Speci men Type: BLOOD SPECIMENOrdering Facility: [facility] Address: [address] [place], [place] [id number] Performed By: #### 2 4321-2, 24033-6, 99466-3, 2777-1 ####[facility]ITALCLIA [id number] [place] [id number] [place] [facility] Creatinine [Mass/Vol] 0.64 mg/dL Low 0.73-1.22 [facility] Comment on above: Order Comment: Speci men Type: BLOOD SPECIMENOrdering Facility: [facility] Address: [address] [place] [address] Performed By: #### 2 4321-2, 29469-9, 73027-4, 2777-1 ####[facility]ITALIA [id number] [address] [place] ESTIMATED GLOMERULAR FILTRATION RATE 102 mL/min/1.73m??? Normal >=60 [facility] Comment on above: Order Comment: Speci men Type: BLOOD SPECIMENOrdering Facility: [facility] Address: [address] [place] [address] Result Comment: Luzmaria mated Glomerular Filtration Rate [...] actual GFR. Performed By: #### 2 4321-2, 21367-4, 48819-8, 2777-1 ####[facility] LABORATORYCLIA [id number] [address] [id number] [place] Glucose [Mass/Vol] 122 mg/dL High 74-99 [facility] Comment on above: Order Comment: Speci men Type: BLOOD SPECIMENOrdering Facility: [facility] Address: [address] [address] Result Comment: The [place] Diabetes Association (ADA) provides guidance for cutoff [...] Standards of Medical Care in Diabetes 2016, [place] Diabetes Association. Diabetes Care. 2016.39(Suppl 1). Performed By: #### 2 4321-2, 56171-2, 55232-5, 2777-1 ####[facility] LABORATORYCLIA [id number] [place] [address] [place] Potassium [Moles/Vol] 4.2 mmol/L Normal 3.7-5.1 [facility] Comment on above: Order Comment: Shira feldman Type: BLOOD SPECIMENOrdering Facility: [facility] Address: [address] [place] [address] Performed By: #### 2 4321-2, 71487-6, 06001-0, 277-1 ####[facility]ITALCLIA [id number] [place] [address] [place] Sodium [Moles/Vol] 135 mmol/L Low 136-144 [facility] Comment on above: Order Comment: Shira feldman Type: BLOOD SPECIMENOrdering Facility: [facility] Address: [address] [place] [address] Performed By: #### 2 4321-2, 74699-0, 99737-7, 277-1 ####[facility]ORATORYCLIA [id number] [place] [address] [place] Urea nitrogen [Mass/Vol] 36 mg/dL High 9-24 [facility] Comment on above: Order Comment: Shira feldman Type: BLOOD SPECIMENOrdering Facility: [facility] Address: [address] [place] [address] Performed By: #### 2 4321-2, 01469-1, 64447-1, 2777-1 ####[facility]ORATORYCLIA [id number] [address] [place] CASE MANAGEMon 08-01-2021 CASE MANAGEM Normal [facility] CBC W Auto Differential pane l (Bld)on 08-01-2021 Basophils (Bld) [#/Vol] 0.04 10*3/uL Normal <0.11 [facility] Comment on above: Order Comment: Speci men Type: BLOOD SPECIMENOrdering Facility: [facility] Address: [address] [place] [address] Performed By: #### 5 7021-8 ####[facility] LABORATORYCLIA [id number] [address] STATES [facility] Basophils/100 WBC (Bld) 0.3 % Normal [facility] Comment on above: Order Comment: Speci men Type: BLOOD SPECIMENOrdering Facility: [facility] Address: [address] [place] [address] Performed By: #### 5 7021-8 ####[facility]ORATORYCLIA [id number] [address] Differential cell count method Nom (Bld) Auto Normal [facility] Comment on above: Order Comment: Speci men Type: BLOOD SPECIMENOrdering Facility: [facility] Address: [address] [place] [address] Performed By: #### 5 7021-8 ####[facility] LABORATORYCLIA [id number] [address] [place] Eosinophils (Bld) [#/Vol] 0.37 10*3/uL Normal <0.46 [facility] Comment on above: Order Comment: Speci men Type: BLOOD SPECIMENOrdering Facility: [facility] Address: [address] [place] [address] Performed By: #### 5 7021-8 ####[facility] LABORATORYCLIA [id number] [address] [place] Eosinophils/100 WBC (Bld) 3.1 % Normal [facility] Comment on above: Order Comment: Speci men Type: BLOOD SPECIMENOrdering Facility: [facility] Address: [address] [place] [address] Performed By: #### 5 7021-8 ####[facility] LABORATORYCLIA [id number] [address] Erythrocyte distribution width (RBC) [Ratio] 17.5 % High 11.5-15.0 [facility] Comment on above: Order Comment: Speci men Type: BLOOD SPECIMENOrdering Facility: [facility] Address: [address] [place] [address] Performed By: #### 5 7021-8 ####[facility] LABORATORYCLIA [id number] [address] Hematocrit (Bld) [Volume fraction] 30.1 % Low 39.0-51.0 [facility] Comment on above: Order Comment: Speci men Type: BLOOD SPECIMENOrdering Facility: [facility] Address: [address] [place] [address] Performed By: #### 5 7021-8 ####[facility] LABORATORYCLIA [id number] [address] OF [facility] Hemoglobin (Bld) [Mass/Vol] 9.1 g/dL Low 13.0-17.0 [facility] Comment on above: Order Comment: Speci men Type: BLOOD SPECIMENOrdering Facility: [facility] Address: [address] [place] [address] Performed By: #### 5 7021-8 ####[facility] LABORATORYCLIA [id number] [address] IMMATURE GRAN % 0.6 % Normal [facility] Comment on above: Order Comment: Speci men Type: BLOOD SPECIMENOrdering Facility: [facility] Address: [address] [place] [address] Performed By: #### 5 7021-8 ####[facility] LABORATORYCLIA [id number] [address] IMMATURE GRAN ABS 0.07 k/uL Normal <0.10 [facility] Comment on above: Order Comment: Speci men Type: BLOOD SPECIMENOrdering Facility: [facility] Address: [address] [place] [address] Performed By: #### 5 7021-8 ####[facility] LABORATORYCLIA [id number] [address] Lymphocytes (Bld) [#/Vol] 2.05 10*3/uL Normal 1.00-4.00 [facility] Comment on above: Order Comment: Speci men Type: BLOOD SPECIMENOrdering Facility: [facility] Address: [address] [place] [address] Performed By: #### 5 7021-8 ####[facility] LABORATORYCLIA [id number] [address] Lymphocytes/100 WBC (Bld) 17.1 % Normal [facility] Comment on above: Order Comment: Speci men Type: BLOOD SPECIMENOrdering Facility: [facility] Address: [address] [place] [address] Performed By: #### 5 7021-8 ####[facility] LABORATORYCLIA [id number] [address] OF [facility] MCH (RBC) [Entitic mass] 27.7 pg Normal 26.0-34.0 [facility] Comment on above: Order Comment: Speci men Type: BLOOD SPECIMENOrdering Facility: [facility] Address: [address] [place] [address] Performed By: #### 5 7021-8 ####[facility] LABORATORYCLIA [id number] [address] [place] MCHC (RBC) [Mass/Vol] 30.2 g/dL Low 30.5-36.0 [facility] Comment on above: Order Comment: Speci men Type: BLOOD SPECIMENOrdering Facility: [facility] Address: [address] [place] [address] Performed By: #### 5 7021-8 ####[facility] LABORATORYCLIA [id number] [place] [address] [place] MCV (RBC) [Entitic vol] 91.5 fL Normal 80.0-100.0 [facility] Comment on above: Order Comment: Speci men Type: BLOOD SPECIMENOrdering Facility: [facility] Address: [address] [place] [address] Performed By: #### 5 7021-8 ####[facility] LABORATORYCLIA [id number] [place] [address] [place] Monocytes (Bld) [#/Vol] 0.53 10*3/uL Normal <0.87 [facility] Comment on above: Order Comment: Speci men Type: BLOOD SPECIMENOrdering Facility: [facility] Address: [address] [place] [address] Performed By: #### 5 7021-8 ####[facility] LABORATORYCLIA [id number] [address] Monocytes/100 WBC (Bld) 4.4 % Normal [facility] Comment on above: Order Comment: Speci men Type: BLOOD SPECIMENOrdering Facility: [facility] Address: [address] [place] [address] Performed By: #### 5 7021-8 ####[facility] LABORATORYCLIA [id number] [address] [place] Neutrophils (Bld) [#/Vol] 8.91 10*3/uL High 1.45-7.50 [facility] Comment on above: Order Comment: Speci men Type: BLOOD SPECIMENOrdering Facility: [facility] Address: [address] [place] [address] Performed By: #### 5 7021-8 ####[facility] LABORATORYCLIA [id number] [address] [place] Neutrophils/100 WBC (Bld) 74.5 % Normal [facility] Comment on above: Order Comment: Speci men Type: BLOOD SPECIMENOrdering Facility: [facility] Address: [id number] [address] Performed By: #### 5 7021-8 ####[facility] LABORATORYCLIA [id number] [address] Nucleated RBC (Bld) [#/Vol] 10*3/uL Normal <0.01 [facility] Comment on above: Order Comment: Speci men Type: BLOOD SPECIMENOrdering Facility: [facility] Address: [facility] [place] [address] Performed By: #### 5 7021-8 ####[facility] LABORATORYCLIA [id number] [address] OF [facility] Nucleated RBC/100 WBC (Bld) [Ratio] 0.0 /100 WBC Normal [facility] Comment on above: Order Comment: Speci men Type: BLOOD SPECIMENOrdering Facility: [facility] Address: [address] [place] [address] Performed By: #### 5 7021-8 ####[facility] LABORATORYCLIA [id number] [address] Platelet mean volume (Bld) [Entitic vol] 10.4 fL Normal 9.0-12.7 [facility] Comment on above: Order Comment: Speci men Type: BLOOD SPECIMENOrdering Facility: [facility] Address: [address] [place] [address] Performed By: #### 5 7021-8 ####[facility] LABORATORYCLIA [id number] [address] [place] Platelets (Bld) [#/Vol] 319 10*3/uL Normal 150-400 [facility] Comment on above: Order Comment: Speci men Type: BLOOD SPECIMENOrdering Facility: [facility] Address: [facility]0 [address] Performed By: #### 5 7021-8 ####[facility] LABORATORYCLIA [id number] [address] [place] RBC (Bld) [#/Vol] 3.29 10*6/uL Low 4.20-6.00 [facility] Comment on above: Order Comment: Speci men Type: BLOOD SPECIMENOrdering Facility: [facility] Address: [address] [place] [address] Performed By: #### 5 7021-8 ####[facility] LABORATORYCLIA [id number] [address] [place] WBC (Bld) [#/Vol] 11.97 10*3/uL High 3.70-11.00 [facility] Comment on above: Order Comment: Speci men Type: BLOOD SPECIMENOrdering Facility: [facility] Address: [address] [place] [address] Performed By: #### 5 7021-8 ####[facility] LABORATORYCLIA [id number] [address] STATES OF [facility] CT BRAIN WO IVCONon 08-02-19 CT BRAIN WO IVCON Normal [facility] Magnesium SerPl-mCncon 08-01 Magnesium [Mass/Vol] 2.4 mg/dL High 1.7-2.3 [facility] Comment on above: Order Comment: Speci men Type: BLOOD SPECIMENOrdering Facility: [facility] Address: [address] [place] [address] Performed By: #### 2 4321-2, 65194-5, 01240-4, 2777-1 ####[facility] LABORATORYCLIA [id number] [address] [place] NURSING PROGon 08-01-2021 NURSING PROG Normal [facility] NUTRITIONon 08-01-2021 NUTRITION Normal [facility] Phosphate SerPl-mCncon 08-01 Phosphate [Mass/Vol] 3.3 mg/dL Normal 2.7-4.8 [facility] Comment on above: Order Comment: Speci men Type: BLOOD SPECIMENOrdering Facility: [facility] Address: [address] [place] [address] Performed By: #### 2 4321-2, 15402-6, 76460-5, 2777- ####[facility] LABORATORYCLIA [id number] [place] [address] [place] Prealbumin [Mass/Vol]on 07-06 Prealbumin Nephelometry [Mass/Vol] 30 mg/dL Normal 17-36 [facility] Comment on above: Order Comment: Speci men Type: BLOOD SPECIMENOrdering Facility: [facility] Address: [address] [place] [address] Performed By: #### 2 4321-2, 60148-4, 63221-0, 277- ####[facility] LABORATORYCLIA [id number] [address] THERAPY NTon 08-01-2021 THERAPY NT Normal [facility] THERAPY NT Normal [facility] TYPE AND SCREENon 08-01-2021 ABO O Normal [facility] Comment on above: Order Comment: Speci men Type: BLOOD SPECIMENOrdering Facility: [facility] Address: [address] [place] [address] Performed By: #### T SCR ####[facility] BLOOD BANKCLIA [id number] [address] HISTORICAL AB SCR STATUS Negative [facility] Comment on above: Order Comment: Speci men Type: BLOOD SPECIMENOrdering Facility: [facility] Address: [address] [place] [address] Performed By: #### T SCR ####[facility] BLOOD BANKCLIA [id number] [address] Rh Nom (Bld) Positive [facility] Comment on above: Order Comment: Speci men Type: BLOOD SPECIMENOrdering Facility: [facility] Address: [address] [place] [address] Performed By: #### T SCR ####[facility] BLOOD BANKCLIA [id number] [address] STATES [place] [facility] TYPE AND SCREEN EXPIRATION 08/04/2021 23:59 Normal [facility] Comment on above: Order Comment: Speci men Type: BLOOD SPECIMENOrdering Facility: [facility] Address: [address] [place] [address] Performed By: #### T SCR ####[facility] BLOOD BANKCLIA [id number] [address] [place] XR CHEST 1V FRONTALon 2021 XR CHEST 1V FRONTAL Normal [facility] aPTT PPPon 08-01-2021 aPTT Coag (PPP) [Time] 50.9 s High 23.0-32.4 [facility] Comment on above: Order Comment: Speci men Type: BLOOD SPECIMENOrdering Facility: [facility] Address: [address] [place] [address] Performed By: #### 1 4979-9 ####[facility] LABORATORYCLIA [id number] [address] [place] CBC W Auto Differential pane l (Bld)on 07-31-2021 Basophils (Bld) [#/Vol] 0.05 10*3/uL Normal <0.11 [facility] Comment on above: Order Comment: Speci men Type: BLOOD SPECIMENOrdering Facility: [facility] Address: [address] [place] [address] Performed By: #### 5 7021-8 ####[facility] LABORATORYCLIA [id number] [address] [place] Basophils/100 WBC (Bld) 0.4 % Normal [facility] Comment on above: Order Comment: Speci men Type: BLOOD SPECIMENOrdering Facility: [facility] Address: [address] [place] [address] Performed By: #### 5 7021-8 ####[facility] LABORATORYCLIA [id number] [address] [place] Differential cell count method Nom (Bld) Auto Normal [facility] Comment on above: Order Comment: Speci men Type: BLOOD SPECIMENOrdering Facility: [facility] Address: [address] [place] [address] Performed By: #### 5 7021-8 ####[facility] LABORATORYCLIA [id number] [address] [place] Eosinophils (Bld) [#/Vol] 0.51 10*3/uL High <0.46 [facility] Comment on above: Order Comment: Speci men Type: BLOOD SPECIMENOrdering Facility: [facility] Address: [address] [place] [address] Performed By: #### 5 7021-8 ####[facility] LABORATORYCLIA [id number] [address] Eosinophils/100 WBC (Bld) 4.5 % Normal [facility] Comment on above: Order Comment: Speci men Type: BLOOD SPECIMENOrdering Facility: [facility] Address: [address] [place] [address] Performed By: #### 5 7021-8 ####[facility] LABORATORYCLIA [id number] [address] Erythrocyte distribution width (RBC) [Ratio] 17.5 % High 11.5-15.0 [facility] Comment on above: Order Comment: Speci men Type: BLOOD SPECIMENOrdering Facility: [facility] Address: [address] [place] [address] Performed By: #### 5 7021-8 ####[facility] LABORATORYCLIA [id number] [address] [place] Hematocrit (Bld) [Volume fraction] 30.4 % Low 39.0-51.0 [facility] Comment on above: Order Comment: Speci men Type: BLOOD SPECIMENOrdering Facility: [facility] Address: [facility] [place] [address] Performed By: #### 5 7021-8 ####[facility] LABORATORYCLIA [id number] [address] [place] Hemoglobin (Bld) [Mass/Vol] 9.2 g/dL Low 13.0-17.0 [facility] Comment on above: Order Comment: Speci men Type: BLOOD SPECIMENOrdering Facility: [facility] Address: [address] [place] [address] Performed By: #### 5 7021-8 ####[facility]ORATORYCLIA [id number] [address] IMMATURE GRAN % 0.5 % Normal [facility] Comment on above: Order Comment: Speci men Type: BLOOD SPECIMENOrdering Facility: [facility] Address: [address] [place] [address] Performed By: #### 5 7021-8 ####[facility] LABORATORYCLIA [id number] [address] IMMATURE GRAN ABS 0.06 k/uL Normal <0.10 [facility] Comment on above: Order Comment: Speci men Type: BLOOD SPECIMENOrdering Facility: [facility] Address: [address] [place] [address] Performed By: #### 5 7021-8 ####[facility] LABORATORYCLIA [id number] [address] Lymphocytes (Bld) [#/Vol] 1.99 10*3/uL Normal 1.00-4.00 [facility] Comment on above: Order Comment: Speci men Type: BLOOD SPECIMENOrdering Facility: [facility] Address: [address] [place] [address] Performed By: #### 5 7021-8 ####[facility] LABORATORYCLIA [id number] [address] Lymphocytes/100 WBC (Bld) 17.6 % Normal [facility] Comment on above: Order Comment: Speci men Type: BLOOD SPECIMENOrdering Facility: [facility] Address: [address] [place] [address] Performed By: #### 5 7021-8 ####[facility] LABORATORYCLIA [id number] [place] [address] [place] MCH (RBC) [Entitic mass] 28.4 pg Normal 26.0-34.0 [facility] Comment on above: Order Comment: Speci men Type: BLOOD SPECIMENOrdering Facility: [facility] Address: [address] [place] [address] Performed By: #### 5 7021-8 ####[facility] LABORATORYCLIA [id number] [address] STATES [place] [facility] MCHC (RBC) [Mass/Vol] 30.3 g/dL Low 30.5-36.0 [facility] Comment on above: Order Comment: Speci men Type: BLOOD SPECIMENOrdering Facility: [facility] Address: [address] [place] [address] Performed By: #### 5 7021-8 ####[facility] LABORATORYCLIA [id number] [address] OF [facility] MCV (RBC) [Entitic vol] 93.8 fL Normal 80.0-100.0 [facility] Comment on above: Order Comment: Speci men Type: BLOOD SPECIMENOrdering Facility: [facility] Address: [address] [place] [address] Performed By: #### 5 7021-8 ####[facility] LABORATORYCLIA [id number] [address] Monocytes (Bld) [#/Vol] 0.57 10*3/uL Normal <0.87 [facility] Comment on above: Order Comment: Speci men Type: BLOOD SPECIMENOrdering Facility: [facility] Address: [address] [place] [address] Performed By: #### 5 7021-8 ####[facility] LABORATORYCLIA [id number] [address] Monocytes/100 WBC (Bld) 5.0 % Normal [facility] Comment on above: Order Comment: Speci men Type: BLOOD SPECIMENOrdering Facility: [facility] Address: [address] [place] [address] Performed By: #### 5 7021-8 ####[facility] LABORATORYCLIA [id number] [address] [place] Neutrophils (Bld) [#/Vol] 8.12 10*3/uL High 1.45-7.50 [facility] Comment on above: Order Comment: Speci men Type: BLOOD SPECIMENOrdering Facility: [facility] Address: [address] [place] [address] Performed By: #### 5 7021-8 ####[facility] LABORATORYCLIA [id number] [address] Neutrophils/100 WBC (Bld) 72.0 % Normal [facility] Comment on above: Order Comment: Speci men Type: BLOOD SPECIMENOrdering Facility: [facility] Address: [address] [place] [address] Performed By: #### 5 7021-8 ####[facility] LABORATORYCLIA [id number] [address] Nucleated RBC (Bld) [#/Vol] 10*3/uL Normal <0.01 [facility] Comment on above: Order Comment: Speci men Type: BLOOD SPECIMENOrdering Facility: [facility] Address: [address] [place] [address] Performed By: #### 5 7021-8 ####[facility] LABORATORYCLIA [id number] [address] Nucleated RBC/100 WBC (Bld) [Ratio] 0.0 /100 WBC Normal [facility] Comment on above: Order Comment: Speci men Type: BLOOD SPECIMENOrdering Facility: [facility] Address: [address] [place] [address] Performed By: #### 5 7021-8 ####[facility] LABORATORYCLIA [id number] [address] Platelet mean volume (Bld) [Entitic vol] 10.9 fL Normal 9.0-12.7 [facility] Comment on above: Order Comment: Speci men Type: BLOOD SPECIMENOrdering Facility: [facility] Address: [address] [place] [address] Performed By: #### 5 7021-8 ####[facility] LABORATORYCLIA [id number] [address] Platelets (Bld) [#/Vol] 303 10*3/uL Normal 150-400 [facility] Comment on above: Order Comment: Speci men Type: BLOOD SPECIMENOrdering Facility: [facility] Address: [address] [place] [address] Performed By: #### 5 7021-8 ####[facility] LABORATORYCLIA [id number] [address] OF [facility] RBC (Bld) [#/Vol] 3.24 10*6/uL Low 4.20-6.00 [facility] Comment on above: Order Comment: Speci men Type: BLOOD SPECIMENOrdering Facility: [facility] Address: [address] [place] [address] Performed By: #### 5 7021-8 ####[facility] LABORATORYCLIA [id number] [address] WBC (Bld) [#/Vol] 11.30 10*3/uL High 3.70-11.00 [facility] Comment on above: Order Comment: Speci men Type: BLOOD SPECIMENOrdering Facility: [facility] Address: [address] [place] [address] Performed By: #### 5 7021-8 ####[facility] LABORATORYCLIA [id number] [address] OF [facility] NURSING PROGon 07-31-2021 NURSING PROG Normal [facility] aPTT PPPon 07-31-2021 aPTT Coag (PPP) [Time] 64.9 s High 23.0-32.4 [facility] Comment on above: Order Comment: Speci men Type: BLOOD SPECIMENOrdering Facility: [facility] Address: [address] [place] [address] Performed By: #### 1 4979-9 ####[facility] LABORATORYCLIA [id number] [address] ALLIED HEALTHon 07-30-2021 ALLIED HEALTH Normal [facility] Bacteria CSF Culton 07-31-19 22 Bacteria identified Cx Nom (CSF) CULTURE, CSF: No growth 14 days GRAM STAIN: No organisms seen Few Mononuclear cells Rare Polymorphonuclear leukocytes Gram stain performed on cytospun specimen. Normal [facility] Comment on above: Performed By: #### 6 06-4 ####[facility] LABORATORYCLIA [id number] [address] Basic metabolic 2000 panelon 07-30-2021 Anion gap [Moles/Vol] 9 mmol/L Normal 9-18 [facility] Comment on above: Order Comment: Speci men Type: BLOOD SPECIMENOrdering Facility: [facility] Address: [address] [place] [address] Performed By: #### 2 777-1, , ####[facility] LABORATORYCLIA [id number] [place] [address] [place] Calcium [Mass/Vol] 8.9 mg/dL Normal 8.5-10.2 [facility] Comment on above: Order Comment: Speci men Type: BLOOD SPECIMENOrdering Facility: [facility] Address: [address] [place] [address] Performed By: #### 2 777-1, , ####[facility] LABORATORYCLIA [id number] [address] [place] Chloride [Moles/Vol] 95 mmol/L Low 97-105 [facility] Comment on above: Order Comment: Speci men Type: BLOOD SPECIMENOrdering Facility: [facility] Address: [address] [place] [address] Performed By: #### 2 777-1, 65041-0, ####[facility] LABORATORYCLIA [id number] [address] [place] CO2 [Moles/Vol] 28 mmol/L Normal 22-30 [facility] Comment on above: Order Comment: Speci men Type: BLOOD SPECIMENOrdering Facility: [facility] Address: [address] [place] [address] Performed By: #### 2 777-1, 00859-7, ####[facility] LABORATORYCLIA [id number] [address] OF [facility] Creatinine [Mass/Vol] 0.67 mg/dL Low 0.73-1.22 [facility] Comment on above: Order Comment: Speci men Type: BLOOD SPECIMENOrdering Facility: [facility] Address: [address] [place] [address] Performed By: #### 2 777-1, 65510-8, ####[facility] [id number] [address] ESTIMATED GLOMERULAR FILTRATION RATE 101 mL/min/1.73m??? Normal >=60 [facility] Comment on above: Order Comment: Speci men Type: BLOOD SPECIMENOrdering Facility: [facility] Address: [address] [place] [address] Result Comment: Luzmaria mated Glomerular Filtration Rate [...] actual GFR. Performed By: #### 2 777-1, 89334-2, ####[facility] LABORATORYCLIA [id number] [address] [place] Glucose [Mass/Vol] 125 mg/dL High 74-99 [facility] Comment on above: Order Comment: Speci men Type: BLOOD SPECIMENOrdering Facility: [facility] Address: [address] [place], [place] [id number] Result Comment: The [place] Diabetes Association (ADA) provides guidance for cutoff [...] Standards of Medical Care in Diabetes 2016, [place] Diabetes Association. Diabetes Care. 2016.39(Suppl 1). Performed By: #### 2 777-1, , ####[facility] LABORATORYCLIA [id number] [place] [address] [place] Potassium [Moles/Vol] 3.9 mmol/L Normal 3.7-5.1 [facility] Comment on above: Order Comment: Speci men Type: BLOOD SPECIMENOrdering Facility: [facility] Address: [address] Performed By: #### 2 777-1, , ####[facility] LABORATORYCLIA [id number] [place] [address] [place] Sodium [Moles/Vol] 132 mmol/L Low 136-144 [facility] Comment on above: Order Comment: Speci men Type: BLOOD SPECIMENOrdering Facility: [facility] Address: [address] [id number] Performed By: #### 2 777-1, , ####[facility] LABORATORYCLIA [id number] [place] [address] [place] Urea nitrogen [Mass/Vol] 38 mg/dL High 9-24 [facility] Comment on above: Order Comment: Speci men Type: BLOOD SPECIMENOrdering Facility: [facility] Address: [address] [id number] Performed By: #### 2 777-1, 29748-9, 76000-8 ####[facility] LABORATORYCLIA [id number] [address] STATES [facility] CBC W Auto Differential pane l (Bld)on 07-30-2021 Basophils (Bld) [#/Vol] 0.04 10*3/uL Normal <0.11 [facility] Comment on above: Order Comment: Speci men Type: BLOOD SPECIMENOrdering Facility: [facility] Address: [address] [place] [address] Performed By: #### 5 7021-8 ####[facility] LABORATORYCLIA [id number] [address] Basophils/100 WBC (Bld) 0.4 % Normal [facility] Comment on above: Order Comment: Speci men Type: BLOOD SPECIMENOrdering Facility: [facility] Address: [address] [place] [address] Performed By: #### 5 7021-8 ####[facility] LABORATORYCLIA [id number] [address] Differential cell count method Nom (Bld) Auto Normal [facility] Comment on above: Order Comment: Speci men Type: BLOOD SPECIMENOrdering Facility: [facility] Address: [address] [place] [address] Performed By: #### 5 7021-8 ####[facility] LABORATORYCLIA [id number] [address] Eosinophils (Bld) [#/Vol] 0.30 10*3/uL Normal <0.46 [facility] Comment on above: Order Comment: Speci men Type: BLOOD SPECIMENOrdering Facility: [facility] Address: [address] [place] [address] Performed By: #### 5 7021-8 ####[facility] LABORATORYCLIA [id number] [address] Eosinophils/100 WBC (Bld) 2.7 % Normal [facility] Comment on above: Order Comment: Speci men Type: BLOOD SPECIMENOrdering Facility: [facility] Address: [address] [place] [address] Performed By: #### 5 7021-8 ####[facility] LABORATORYCLIA [id number] [address] Erythrocyte distribution width (RBC) [Ratio] 17.2 % High 11.5-15.0 [facility] Comment on above: Order Comment: Speci men Type: BLOOD SPECIMENOrdering Facility: [facility] Address: [address] [place] [address] Performed By: #### 5 7021-8 ####[facility] LABORATORYCLIA [id number] [address] Hematocrit (Bld) [Volume fraction] 30.8 % Low 39.0-51.0 [facility] Comment on above: Order Comment: Speci men Type: BLOOD SPECIMENOrdering Facility: [facility] Address: [address] [place] [address] Performed By: #### 5 7021-8 ####[facility] LABORATORYCLIA [id number] [address] OF [facility] Hemoglobin (Bld) [Mass/Vol] 9.4 g/dL Low 13.0-17.0 [facility] Comment on above: Order Comment: Speci men Type: BLOOD SPECIMENOrdering Facility: [facility] Address: [address] [place] [address] Performed By: #### 5 7021-8 ####[facility] LABORATORYCLIA [id number] [address] STATES [facility] IMMATURE GRAN % 0.5 % Normal [facility] Comment on above: Order Comment: Speci men Type: BLOOD SPECIMENOrdering Facility: [facility] Address: [address] [place] [address] Performed By: #### 5 7021-8 ####[facility] LABORATORYCLIA [id number] [address] IMMATURE GRAN ABS 0.06 k/uL Normal <0.10 [facility] Comment on above: Order Comment: Speci men Type: BLOOD SPECIMENOrdering Facility: [facility] Address: [address] [place] [address] Performed By: #### 5 7021-8 ####[facility] LABORATORYCLIA [id number] [address] Lymphocytes (Bld) [#/Vol] 1.68 10*3/uL Normal 1.00-4.00 [facility] Comment on above: Order Comment: Speci men Type: BLOOD SPECIMENOrdering Facility: [facility] Address: [address] [place] [address] Performed By: #### 5 7021-8 ####[facility] LABORATORYCLIA [id number] [address] Lymphocytes/100 WBC (Bld) 15.3 % Normal [facility] Comment on above: Order Comment: Speci men Type: BLOOD SPECIMENOrdering Facility: [facility] Address: [address] [place] [address] Performed By: #### 5 7021-8 ####[facility] LABORATORYCLIA [id number] [address] MCH (RBC) [Entitic mass] 28.0 pg Normal 26.0-34.0 [facility] Comment on above: Order Comment: Speci men Type: BLOOD SPECIMENOrdering Facility: [facility] Address: [address] [place] [address] Performed By: #### 5 7021-8 ####[facility] LABORATORYCLIA [id number] [address] MCHC (RBC) [Mass/Vol] 30.5 g/dL Normal 30.5-36.0 [facility] Comment on above: Order Comment: Speci men Type: BLOOD SPECIMENOrdering Facility: [facility] Address: [address] [place], [place] [address] Performed By: #### 5 7021-8 ####[facility] LABORATORYCLIA [id number] [address] [place] MCV (RBC) [Entitic vol] 91.7 fL Normal 80.0-100.0 [facility] Comment on above: Order Comment: Speci men Type: BLOOD SPECIMENOrdering Facility: [facility] Address: [address] [place] [address] Performed By: #### 5 7021-8 ####[facility] LABORATORYCLIA [id number] [address] [place] Monocytes (Bld) [#/Vol] 0.53 10*3/uL Normal <0.87 [facility] Comment on above: Order Comment: Speci men Type: BLOOD SPECIMENOrdering Facility: [facility] Address: [address] [place] [address] Performed By: #### 5 7021-8 ####[facility] LABORATORYCLIA [id number] [address] STATES [facility] Monocytes/100 WBC (Bld) 4.8 % Normal [facility] Comment on above: Order Comment: Speci men Type: BLOOD SPECIMENOrdering Facility: [facility] Address: [address] [place] [address] Performed By: #### 5 7021-8 ####[facility] LABORATORYCLIA [id number] [address] [place] Neutrophils (Bld) [#/Vol] 8.39 10*3/uL High 1.45-7.50 [facility] Comment on above: Order Comment: Speci men Type: BLOOD SPECIMENOrdering Facility: [facility] Address: [address] [place] [address] Performed By: #### 5 7021-8 ####[facility] LABORATORYCLIA [id number] [address] [place] Neutrophils/100 WBC (Bld) 76.3 % Normal [facility] Comment on above: Order Comment: Speci men Type: BLOOD SPECIMENOrdering Facility: [facility] Address: [address] Performed By: #### 5 7021-8 ####[facility] LABORATORYCLIA [id number] [address] [place] Nucleated RBC (Bld) [#/Vol] 10*3/uL Normal <0.01 [facility] Comment on above: Order Comment: Speci men Type: BLOOD SPECIMENOrdering Facility: [facility] Address: [address] [place], [place] [address] Performed By: #### 5 7021-8 ####[facility] LABORATORYCLIA [id number] [address] [place] Nucleated RBC/100 WBC (Bld) [Ratio] 0.0 /100 WBC Normal [facility] Comment on above: Order Comment: Speci men Type: BLOOD SPECIMENOrdering Facility: [facility] Address: [address] [place], [place] [address] Performed By: #### 5 7021-8 ####[facility] LABORATORYCLIA [id number] [address] [place] Platelet mean volume (Bld) [Entitic vol] 10.9 fL Normal 9.0-12.7 [facility] Comment on above: Order Comment: Speci men Type: BLOOD SPECIMENOrdering Facility: [facility] Address: [address] Performed By: #### 5 7021-8 ####[facility] LABORATORYCLIA [id number] [address] [place] Platelets (Bld) [#/Vol] 287 10*3/uL Normal 150-400 [facility] Comment on above: Order Comment: Speci men Type: BLOOD SPECIMENOrdering Facility: [facility] Address: [address] [place], [place] [address] Performed By: #### 5 7021-8 ####[facility] LABORATORYCLIA [id number] [address] [place] RBC (Bld) [#/Vol] 3.36 10*6/uL Low 4.20-6.00 [facility] Comment on above: Order Comment: Speci men Type: BLOOD SPECIMENOrdering Facility: [facility] Address: [address] [place] [address] Performed By: #### 5 7021-8 ####[facility] LABORATORYCLIA [id number] [address] [place] WBC (Bld) [#/Vol] 11.00 10*3/uL Normal 3.70-11.00 [facility] Comment on above: Order Comment: Speci men Type: BLOOD SPECIMENOrdering Facility: [facility] Address: [address] [place] [address] Performed By: #### 5 7021-8 ####[facility] LABORATORYCLIA [id number] [address] CSF MANUAL DIFFon 07-30-2021 DIF TTL, CSF 100 cells counted Normal [facility] Comment on above: Order Comment: Speci men Type: CEREBROSPINAL FLUIDOrdering Facility: [facility] Address: [address] [place] [address] Performed By: #### L [id number], [id number], 77040-9 ####[facility] LABORATORYCLIA [id number] [address] [place] EOSIN%, CSF 0 % Normal [facility] Comment on above: Order Comment: Speci men Type: CEREBROSPINAL FLUIDOrdering Facility: [facility] Address: [address] [place] [address] Performed By: #### L [id number], TXL1896, 35445-1 ####[facility] LABORATORYCLIA [id number] [address] LYMPH%, CSF 75 % Normal 50-90 [facility] Comment on above: Order Comment: Speci men Type: CEREBROSPINAL FLUIDOrdering Facility: [facility] Address: [address] [place] [address] Performed By: #### L [id number], [id number], 10966-2 ####[facility]ORATORYCLIA [id number] [place] [address] [place] MACRO%, CSF 9 % High <1 [facility] Comment on above: Order Comment: Speci men Type: CEREBROSPINAL FLUIDOrdering Facility: [facility] Address: [address] [place] [address] Performed By: #### L [id number], VYB4283, 51583-3 ####[facility]ORATORYCLIA [id number] [place] [address] [place] MONO%, CSF 10 % Normal 10-50 [facility] Comment on above: Order Comment: Speci men Type: CEREBROSPINAL FLUIDOrdering Facility: [facility] Address: [address] [place] [address] Performed By: #### L [id number], [id number], 18984-1 ####[facility]ORATORYCLIA [id number] [address] OTHER CL%, CSF 4 % Normal [facility] Comment on above: Order Comment: Speci men Type: CEREBROSPINAL FLUIDOrdering Facility: [facility] Address: [address] [place] [address] Result Comment: Path review to follow. Performed By: #### L [id number], NDE5328, 62947-6 ####[facility]ORATORYCLIA [id number] [address] [place] REAC LYMPH %, CSF 2 % Normal [facility] Comment on above: Order Comment: Speci men Type: CEREBROSPINAL FLUIDOrdering Facility: [facility] Address: [address] [place] [address] Performed By: #### L [id number], QBL9157, 65322-1 ####[facility]ORATORYCLIA [id number] [address] [place] CSF PATHOLOGIST INTERP (LAB REFLEX ORDER-NO BILL)on 07-30-2021 CSF STAFF REVIEW Negative Normal [facility] Comment on above: Order Comment: Speci men Type: CEREBROSPINAL FLUIDOrdering Facility: [facility] Address: [address] [place] [address] Performed By: #### L [id number], TBO7091, 70277-0 ####[facility]ORATORYCLIA [id number] [address] Pathologist name Reviewed by Eloise rebolledo MD Normal [facility] Comment on above: Order Comment: Speci men Type: CEREBROSPINAL FLUIDOrdering Facility: [facility] Address: [address] [place] [address] Performed By: #### L [id number], MFM1671, 10258-1 ####[facility]ORATORYCLIA [id number] [address] [place] CT BRAIN WO IVCONon 07-31-19 CT BRAIN WO IVCON Normal [facility] Cell count panel (CSF)on Clarity (CSF) Clear Normal Clear [facility] Comment on above: Order Comment: Speci men Type: CEREBROSPINAL FLUIDOrdering Facility: [facility] Address: [address] [place] [address] Performed By: #### L [id number], IHT7991, 02984-6 ####[facility]ORATORYCLIA [id number] [address] Clarity (Unsp spec) Clear Normal Clear [facility] Comment on above: Order Comment: Speci men Type: CEREBROSPINAL FLUIDOrdering Facility: [facility] Address: [address] [place] [address] Performed By: #### L [id number], ZTN4744, 93331-2 ####[facility]ORATORYCLIA [id number] [address] Color (CSF) Colorless Normal Colorless [facility] Comment on above: Order Comment: Speci men Type: CEREBROSPINAL FLUIDOrdering Facility: [facility] Address: [address] [place] [address] Performed By: #### L WX4757, DVG8801, 38415-3 ####[facility] LABORATORYCLIA [id number] [address] Color (Spun CSF) Colorless Normal Colorless [facility] Comment on above: Order Comment: Speci men Type: CEREBROSPINAL FLUIDOrdering Facility: [facility] Address: [address] [place], [place] [address] Performed By: #### L [id number], GIH3018, 84817-3 ####[facility] LABORATORYCLIA [id number] [address] CSF [employer] Normal [facility] Comment on above: Order Comment: Speci men Type: CEREBROSPINAL FLUIDOrdering Facility: [facility] Address: [address] [place] [address] Performed By: #### L [id number], AUA1629, 75860-4 ####[facility] LABORATORYCLIA [id number] [address] RBC Manual cnt (CSF) [#/Vol] 9 cells/uL High 0-5 [facility] Comment on above: Order Comment: Speci men Type: CEREBROSPINAL FLUIDOrdering Facility: [facility] Address: [address] [place] [address] Performed By: #### L YC5355, KHN8852, 14015-9 ####[facility] LABORATORYCLIA [id number] [address] WBC Manual cnt (CSF) [#/Vol] 8 cells/uL High 0-5 [facility] Comment on above: Order Comment: Speci men Type: CEREBROSPINAL FLUIDOrdering Facility: [facility] Address: [address] [place], [place] [address] Performed By: #### L DZ2988, IDZ8418, 91313-7 ####[facility] LABORATORYCLIA [id number] [address] [place] Glucose CSF-ncon 2 Glucose (CSF) [Mass/Vol] 65 mg/dL Normal 40-70 [facility] Comment on above: Order Comment: Speci men Type: CEREBROSPINAL FLUIDOrdering Facility: [facility] Address: [address] [place] [address] Result Comment: Lumb ar CSF glucose values of healthy patients are approximately 60% of the plasma values and must always be compared with a concurrently measured plasma value for adequate clinical interpretation.References: 1. Glucose HK (GLUC3) [package insert V 12.0 Cymraes]. [employer], [place], [place]. September 2015. 2. Michelle Moore, Loki HGarfield (2015). Chapter 7: Glucose and Lactate. F. Irina rose al.(eds.), Cerebrospinal Fluid in Clinical Neurology. Saunders: [employer]. Performed By: #### 2 342-4, 2880-3 ####[facility] LABORATORYCLIA [id number] [address] [place] Magnesium SerPl-mCncon 07-30 Magnesium [Mass/Vol] 2.5 mg/dL High 1.7-2.3 [facility] Comment on above: Order Comment: Speccara feldman Type: BLOOD SPECIMENOrdering Facility: [facility] Address: [address] [place] [address] Performed By: #### 2 777-1, 27008-7, 61935-0 ####[facility] LABORATORYCLIA [id number] [address] OF [facility] NURSING PROGon 07-30-2021 NURSING PROG Normal [facility] Phosphate SerPl-mCncon 07-30 Phosphate [Mass/Vol] 2.4 mg/dL Low 2.7-4.8 [facility] Comment on above: Order Comment: Johni francia Type: BLOOD SPECIMENOrdering Facility: [facility] Address: [address] [place] [address] Performed By: #### 2 777-1, 55216-0, 47317-8 ####[facility] LABORATORYCLIA [id number] [address] OF [facility] Prot CSF-mCncon 07-30-2021 Protein (CSF) [Mass/Vol] 50 mg/dL High 15-45 [facility] Comment on above: Order Comment: Speci men Type: CEREBROSPINAL FLUIDOrdering Facility: [facility] Address: [address] [place] [address] Performed By: #### 2 342-4, 2880-3 ####[facility] LABORATORYCLIA [id number] [address] [place] aPTT PPPon 07-30-2021 aPTT Coag (PPP) [Time] 64.1 s High 23.0-32.4 [facility] Comment on above: Order Comment: Speci men Type: BLOOD SPECIMENOrdering Facility: [facility] Address: [address] [place] [address] Performed By: #### 1 4979-9 ####[facility] LABORATORYCLIA [id number] [address] [place] Bacteria CSF Culton 07-30-19 22 Bacteria identified Cx Nom (CSF) CULTURE, CSF: No growth 14 days GRAM STAIN: No cells or organisms seen Gram stain performed on cytospun specimen. Gram stain confirmed by microbiology Normal [facility] Comment on above: Performed By: #### 6 06-4 ####[facility] LABORATORYCLIA [id number] [address] [place] CASE MANAGEMon 07-29-2021 CASE MANAGEM Normal [facility] CBC W Auto Differential pane l (Bld)on 07-29-2021 Basophils (Bld) [#/Vol] 0.03 10*3/uL Normal <0.11 [facility] Comment on above: Order Comment: Speci men Type: BLOOD SPECIMENOrdering Facility: [facility] Address: [address] [place] [address] Performed By: #### 5 7021-8 ####[facility] LABORATORYCLIA [id number] [address] [place] Basophils/100 WBC (Bld) 0.3 % Normal [facility] Comment on above: Order Comment: Speci men Type: BLOOD SPECIMENOrdering Facility: [facility] Address: [address] [place] [address] Performed By: #### 5 7021-8 ####[facility] LABORATORYCLIA [id number] [address] Differential cell count method Nom (Bld) Auto Normal [facility] Comment on above: Order Comment: Speci men Type: BLOOD SPECIMENOrdering Facility: [facility] Address: [address] [place] [address] Performed By: #### 5 7021-8 ####[facility] LABORATORYCLIA [id number] [address] Eosinophils (Bld) [#/Vol] 0.40 10*3/uL Normal <0.46 [facility] Comment on above: Order Comment: Speci men Type: BLOOD SPECIMENOrdering Facility: [facility] Address: [address] [place] [address] Performed By: #### 5 7021-8 ####[facility] LABORATORYCLIA [id number] [address] Eosinophils/100 WBC (Bld) 3.9 % Normal [facility] Comment on above: Order Comment: Speci men Type: BLOOD SPECIMENOrdering Facility: [facility] Address: [address] [place] [address] Performed By: #### 5 7021-8 ####[facility] LABORATORYCLIA [id number] [address] Erythrocyte distribution width (RBC) [Ratio] 17.1 % High 11.5-15.0 [facility] Comment on above: Order Comment: Speci men Type: BLOOD SPECIMENOrdering Facility: [facility] Address: [address] [place] [address] Performed By: #### 5 7021-8 ####[facility] LABORATORYCLIA [id number] [place] [address] [place] Hematocrit (Bld) [Volume fraction] 32.0 % Low 39.0-51.0 [facility] Comment on above: Order Comment: Speci men Type: BLOOD SPECIMENOrdering Facility: [facility] Address: [address] [place] [address] Performed By: #### 5 7021-8 ####[facility] LABORATORYCLIA [id number] [address] STATES OF [facility] Hemoglobin (Bld) [Mass/Vol] 9.7 g/dL Low 13.0-17.0 [facility] Comment on above: Order Comment: Speci men Type: BLOOD SPECIMENOrdering Facility: [facility] Address: [address] [place] [address] Performed By: #### 5 7021-8 ####[facility] LABORATORYCLIA [id number] [address] IMMATURE GRAN % 0.6 % Normal [facility] Comment on above: Order Comment: Speci men Type: BLOOD SPECIMENOrdering Facility: [facility] Address: [address] [place] [address] Performed By: #### 5 7021-8 ####[facility] LABORATORYCLIA [id number] [address] IMMATURE GRAN ABS 0.06 k/uL Normal <0.10 [facility] Comment on above: Order Comment: Speci men Type: BLOOD SPECIMENOrdering Facility: [facility] Address: [address] [place] [address] Performed By: #### 5 7021-8 ####[facility] LABORATORYCLIA [id number] [address] [place] Lymphocytes (Bld) [#/Vol] 1.96 10*3/uL Normal 1.00-4.00 [facility] Comment on above: Order Comment: Speci men Type: BLOOD SPECIMENOrdering Facility: [facility] Address: [address] [place] [address] Performed By: #### 5 7021-8 ####[facility] LABORATORYCLIA [id number] [address] Lymphocytes/100 WBC (Bld) 19.0 % Normal [facility] Comment on above: Order Comment: Speci men Type: BLOOD SPECIMENOrdering Facility: [facility] Address: [address] [place] [address] Performed By: #### 5 7021-8 ####[facility] LABORATORYCLIA [id number] [address] MCH (RBC) [Entitic mass] 28.0 pg Normal 26.0-34.0 [facility] Comment on above: Order Comment: Speci men Type: BLOOD SPECIMENOrdering Facility: [facility] Address: [address] [place] [address] Performed By: #### 5 7021-8 ####[facility] LABORATORYCLIA [id number] [address] MCHC (RBC) [Mass/Vol] 30.3 g/dL Low 30.5-36.0 [facility] Comment on above: Order Comment: Speci men Type: BLOOD SPECIMENOrdering Facility: [facility] Address: [address] [place] [address] Performed By: #### 5 7021-8 ####[facility] LABORATORYCLIA [id number] [address] STATES [facility] MCV (RBC) [Entitic vol] 92.5 fL Normal 80.0-100.0 [facility] Comment on above: Order Comment: Speci men Type: BLOOD SPECIMENOrdering Facility: [facility] Address: [address] [place] [address] Performed By: #### 5 7021-8 ####[facility] LABORATORYCLIA [id number] [address] Monocytes (Bld) [#/Vol] 0.53 10*3/uL Normal <0.87 [facility] Comment on above: Order Comment: Speci men Type: BLOOD SPECIMENOrdering Facility: [facility] Address: [address] [place] [address] Performed By: #### 5 7021-8 ####[facility]ORATORYCLIA [id number] [address] [place] Monocytes/100 WBC (Bld) 5.2 % Normal [facility] Comment on above: Order Comment: Speci men Type: BLOOD SPECIMENOrdering Facility: [facility] Address: [address] [place] [address] Performed By: #### 5 7021-8 ####[facility]ATORYCLIA [id number] [address] [place] Neutrophils (Bld) [#/Vol] 7.31 10*3/uL Normal 1.45-7.50 [facility] Comment on above: Order Comment: Speci men Type: BLOOD SPECIMENOrdering Facility: [facility] Address: [address] [place] [address] Performed By: #### 5 7021-8 ####[facility]ATORYCLIA [id number] [address] [place] Neutrophils/100 WBC (Bld) 71.0 % Normal [facility] Comment on above: Order Comment: Speci men Type: BLOOD SPECIMENOrdering Facility: [facility] Address: [address] [place] [address] Performed By: #### 5 7021-8 ####[facility]ATORYCLIA [id number] [address] [place] Nucleated RBC (Bld) [#/Vol] 10*3/uL Normal <0.01 [facility] Comment on above: Order Comment: Speci men Type: BLOOD SPECIMENOrdering Facility: [facility] Address: [address] [place] [address] Performed By: #### 5 7021-8 ####[facility]ORATORYCLIA [id number] [place] [address] [place] Nucleated RBC/100 WBC (Bld) [Ratio] 0.0 /100 WBC Normal [facility] Comment on above: Order Comment: Speci men Type: BLOOD SPECIMENOrdering Facility: [facility] Address: [address] [place], [place] [address] Performed By: #### 5 7021-8 ####[facility] LABORATORYCLIA [id number] [address] [place] Platelet mean volume (Bld) [Entitic vol] 11.2 fL Normal 9.0-12.7 [facility] Comment on above: Order Comment: Speci men Type: BLOOD SPECIMENOrdering Facility: [facility] Address: [address] [place] [address] Performed By: #### 5 7021-8 ####[facility] LABORATORYCLIA [id number] [address] [place] Platelets (Bld) [#/Vol] 276 10*3/uL Normal 150-400 [facility] Comment on above: Order Comment: Speci men Type: BLOOD SPECIMENOrdering Facility: [facility] Address: [address] [place] [address] Performed By: #### 5 7021-8 ####[facility] LABORATORYCLIA [id number] [address] [place] RBC (Bld) [#/Vol] 3.46 10*6/uL Low 4.20-6.00 [facility] Comment on above: Order Comment: Speci men Type: BLOOD SPECIMENOrdering Facility: [facility] Address: [address] [place], [place] [address] Performed By: #### 5 7021-8 ####[facility] LABORATORYCLIA [id number] [address] [place] WBC (Bld) [#/Vol] 10.29 10*3/uL Normal 3.70-11.00 [facility] Comment on above: Order Comment: Speci men Type: BLOOD SPECIMENOrdering Facility: [facility] Address: [address] [place], [place] [address] Performed By: #### 5 7021-8 ####[facility] LABORATORYCLIA [id number] [address] OF [facility] NURSING PROGon 07-29-2021 NURSING PROG Normal [facility] THERAPY NTon 07-29-2021 THERAPY NT Normal [facility] aPTT PPPon 07-29-2021 aPTT Coag (PPP) [Time] 59.2 s High 23.0-32.4 [facility] Comment on above: Order Comment: Speci men Type: BLOOD SPECIMENOrdering Facility: [facility] Address: [address] [place] [address] Performed By: #### 1 [id number] ####[facility] LABORATORYCLIA [id number] [address] OF [facility] ALLIED HEALTHon 07-28-2021 ALLIED HEALTH Normal [facility] Basic metabolic 2000 panelon 07-28-2021 Anion gap [Moles/Vol] 7 mmol/L Low 9-18 [facility] Comment on above: Order Comment: Speci men Type: BLOOD SPECIMENOrdering Facility: [facility] Address: [address] [place] [address] Performed By: #### 1 4338-8, 86556-0, 2777-1, 39401-3 ####[facility] LABORATORYCLIA [id number] [place] [address] [place] Calcium [Mass/Vol] 9.0 mg/dL Normal 8.5-10.2 [facility] Comment on above: Order Comment: Speci men Type: BLOOD SPECIMENOrdering Facility: [facility] Address: [address] [place] [address] Performed By: #### 1 4338-8, 23453-8, 2777-1, 59796-6 ####[facility] LABORATORYCLIA [id number] [place] [address] [place] Chloride [Moles/Vol] 94 mmol/L Low 97-105 [facility] Comment on above: Order Comment: Speci men Type: BLOOD SPECIMENOrdering Facility: [facility] Address: [address] [place] [address] Performed By: #### 1 4338-8, 81977-7, 2777, 52072-5 ####[facility] LABORATORYCLIA [id number] [place] [address] [place] CO2 [Moles/Vol] 31 mmol/L High 22-30 [facility] Comment on above: Order Comment: Speci men Type: BLOOD SPECIMENOrdering Facility: [facility] Address: [address] [place] [address] Performed By: #### 1 4338-8, 03439-7, 2776-05, 66706-6 ####[facility] LABORATORYCLIA [id number] [address] [place] Creatinine [Mass/Vol] 0.75 mg/dL Normal 0.73-1.22 [facility] Comment on above: Order Comment: Speci men Type: BLOOD SPECIMENOrdering Facility: [facility] Address: [address] [place] [address] Performed By: #### 1 4338-8, 96426-7, 27711-04, 57412-2 ####[facility] LABORATORYCLIA [id number] [address] [place] ESTIMATED GLOMERULAR FILTRATION RATE 98 mL/min/1.73m??? Normal >=60 [facility] Comment on above: Order Comment: Speci men Type: BLOOD SPECIMENOrdering Facility: [facility] Address: [address] [place] [address] Result Comment: Luzmaria mated Glomerular Filtration Rate [...] actual GFR. Performed By: #### 1 4338-8, 09979-1, 2777-, 60443-9 ####[facility] LABORATORYCLIA [id number] [place] [address] [place] Glucose [Mass/Vol] 122 mg/dL High 74-99 [facility] Comment on above: Order Comment: Speccara men Type: BLOOD SPECIMENOrdering Facility: [facility] Address: [address] [place], [place] [address] Result Comment: The [place] Diabetes Association (ADA) provides guidance for cutoff [...] Standards of Medical Care in Diabetes 2016, [place] Diabetes Association. Diabetes Care. 2016.39(Suppl 1). Performed By: #### 1 4338-8, 58916-2, 277-1, 96969-2 ####[facility] LABORATORYCLIA [id number] [place] [address] [place] Potassium [Moles/Vol] 4.0 mmol/L Normal 3.7-5.1 [facility] Comment on above: Order Comment: Johni men Type: BLOOD SPECIMENOrdering Facility: [facility] Address: [address] [place], [place] [address] Performed By: #### 1 4338-8, 00578-5, 277-, 48093-7 ####[facility] LABORATORYCLIA [id number] [place] [address] [place] Sodium [Moles/Vol] 132 mmol/L Low 136-144 [facility] Comment on above: Order Comment: Speci men Type: BLOOD SPECIMENOrdering Facility: [facility] Address: [address] [id number] Performed By: #### 1 4338-8, 65367-6, 2776-1, 65331-9 ####[facility] LABORATORYCLIA [id number] [place] [address] [place] Urea nitrogen [Mass/Vol] 34 mg/dL High 01-28 [facility] Comment on above: Order Comment: Speci men Type: BLOOD SPECIMENOrdering Facility: [facility] Address: [address] [place] [address] Performed By: #### 1 4338-8, 96708-2, 2777-1, 74381-1 ####[facility]ORATORYCLIA [id number] [place] [address] [place] CBC W Auto Differential pane l (Bld)on 07-28-2021 Basophils (Bld) [#/Vol] 0.04 10*3/uL Normal <0.11 [facility] Comment on above: Order Comment: Speci men Type: BLOOD SPECIMENOrdering Facility: [facility] Address: [address] [place] [address] Performed By: #### 5 7021-8 ####[facility] LABORATORYCLIA [id number] [place] [address] [place] Basophils/100 WBC (Bld) 0.5 % Normal [facility] Comment on above: Order Comment: Speci men Type: BLOOD SPECIMENOrdering Facility: [facility] Address: [address] [place] [address] Performed By: #### 5 7021-8 ####[facility] LABORATORYCLIA [id number] [address] [place] Differential cell count method Nom (Bld) Auto Normal [facility] Comment on above: Order Comment: Speci men Type: BLOOD SPECIMENOrdering Facility: [facility] Address: [address] [place] [address] Performed By: #### 5 7021-8 ####[facility] LABORATORYCLIA [id number] [place] [address] [place] Eosinophils (Bld) [#/Vol] 0.30 10*3/uL Normal <0.46 [facility] Comment on above: Order Comment: Speci men Type: BLOOD SPECIMENOrdering Facility: [facility] Address: [address] [place] [address] Performed By: #### 5 7021-8 ####[facility] LABORATORYCLIA [id number] [address] Eosinophils/100 WBC (Bld) 3.4 % Normal [facility] Comment on above: Order Comment: Speci men Type: BLOOD SPECIMENOrdering Facility: [facility] Address: [address] [place] [address] Performed By: #### 5 7021-8 ####[facility] LABORATORYCLIA [id number] [address] [place] Erythrocyte distribution width (RBC) [Ratio] 16.9 % High 11.5-15.0 [facility] Comment on above: Order Comment: Speci men Type: BLOOD SPECIMENOrdering Facility: [facility] Address: [address] [place] [address] Performed By: #### 5 7021-8 ####[facility] LABORATORYCLIA [id number] [address] [place] Hematocrit (Bld) [Volume fraction] 30.3 % Low 39.0-51.0 [facility] Comment on above: Order Comment: Speci men Type: BLOOD SPECIMENOrdering Facility: [facility] Address: [address] [place] [address] Performed By: #### 5 7021-8 ####[facility] LABORATORYCLIA [id number] [address] [place] Hemoglobin (Bld) [Mass/Vol] 9.2 g/dL Low 13.0-17.0 [facility] Comment on above: Order Comment: Speci men Type: BLOOD SPECIMENOrdering Facility: [facility] Address: [address] [place] [address] Performed By: #### 5 7021-8 ####[facility] LABORATORYCLIA [id number] [address] IMMATURE GRAN % 0.6 % Normal [facility] Comment on above: Order Comment: Speci men Type: BLOOD SPECIMENOrdering Facility: [facility] Address: [address] [place] [address] Performed By: #### 5 7021-8 ####[facility] LABORATORYCLIA [id number] [address] IMMATURE GRAN ABS 0.05 k/uL Normal <0.10 [facility] Comment on above: Order Comment: Speci men Type: BLOOD SPECIMENOrdering Facility: [facility] Address: [address] [place] [address] Performed By: #### 5 7021-8 ####[facility] LABORATORYCLIA [id number] [address] [place] Lymphocytes (Bld) [#/Vol] 1.68 10*3/uL Normal 1.00-4.00 [facility] Comment on above: Order Comment: Speci men Type: BLOOD SPECIMENOrdering Facility: [facility] Address: [address] [place] [address] Performed By: #### 5 7021-8 ####[facility] LABORATORYCLIA [id number] [address] Lymphocytes/100 WBC (Bld) 19.2 % Normal [facility] Comment on above: Order Comment: Speci men Type: BLOOD SPECIMENOrdering Facility: [facility] Address: [address] [place] [address] Performed By: #### 5 7021-8 ####[facility] LABORATORYCLIA [id number] [address] [place] MCH (RBC) [Entitic mass] 28.4 pg Normal 26.0-34.0 [facility] Comment on above: Order Comment: Speci men Type: BLOOD SPECIMENOrdering Facility: [facility] Address: [address] [place] [address] Performed By: #### 5 7021-8 ####[facility] LABORATORYCLIA [id number] [address] STATES [facility] MCHC (RBC) [Mass/Vol] 30.4 g/dL Low 30.5-36.0 [facility] Comment on above: Order Comment: Speci men Type: BLOOD SPECIMENOrdering Facility: [facility] Address: [address] [place] [address] Performed By: #### 5 7021-8 ####[facility] LABORATORYCLIA [id number] [address] MCV (RBC) [Entitic vol] 93.5 fL Normal 80.0-100.0 [facility] Comment on above: Order Comment: Speci men Type: BLOOD SPECIMENOrdering Facility: [facility] Address: [address] [place] [address] Performed By: #### 5 7021-8 ####[facility] LABORATORYCLIA [id number] [address] Monocytes (Bld) [#/Vol] 0.58 10*3/uL Normal <0.87 [facility] Comment on above: Order Comment: Speci men Type: BLOOD SPECIMENOrdering Facility: [facility] Address: [address] [place] [address] Performed By: #### 5 7021-8 ####[facility] LABORATORYCLIA [id number] [address] Monocytes/100 WBC (Bld) 6.6 % Normal [facility] Comment on above: Order Comment: Speci men Type: BLOOD SPECIMENOrdering Facility: [facility] Address: [address] [place] [address] Performed By: #### 5 7021-8 ####[facility] LABORATORYCLIA [id number] [address] [place] Neutrophils (Bld) [#/Vol] 6.11 10*3/uL Normal 1.45-7.50 [facility] Comment on above: Order Comment: Speci men Type: BLOOD SPECIMENOrdering Facility: [facility] Address: [address] [address] Performed By: #### 5 7021-8 ####[facility] LABORATORYCLIA [id number] [address] Neutrophils/100 WBC (Bld) 69.7 % Normal [facility] Comment on above: Order Comment: Speci men Type: BLOOD SPECIMENOrdering Facility: [facility] Address: [address] [place] [address] Performed By: #### 5 7021-8 ####[facility] LABORATORYCLIA [id number] [address] Nucleated RBC (Bld) [#/Vol] 10*3/uL Normal <0.01 [facility] Comment on above: Order Comment: Speci men Type: BLOOD SPECIMENOrdering Facility: [facility] Address: [address] [place] [address] Performed By: #### 5 7021-8 ####[facility] LABORATORYCLIA [id number] [address] Nucleated RBC/100 WBC (Bld) [Ratio] 0.0 /100 WBC Normal [facility] Comment on above: Order Comment: Speci men Type: BLOOD SPECIMENOrdering Facility: [facility] Address: [address] [place] [address] Performed By: #### 5 7021-8 ####[facility] LABORATORYCLIA [id number] [address] Platelet mean volume (Bld) [Entitic vol] 11.3 fL Normal 9.0-12.7 [facility] Comment on above: Order Comment: Speci men Type: BLOOD SPECIMENOrdering Facility: [facility] Address: [address] [place] [address] Performed By: #### 5 7021-8 ####[facility] LABORATORYCLIA [id number] [address] Platelets (Bld) [#/Vol] 238 10*3/uL Normal 150-400 [facility] Comment on above: Order Comment: Speci men Type: BLOOD SPECIMENOrdering Facility: [facility] Address: [address] [place] [address] Performed By: #### 5 7021-8 ####[facility] LABORATORYCLIA [id number] [address] OF [facility] RBC (Bld) [#/Vol] 3.24 10*6/uL Low 4.20-6.00 [facility] Comment on above: Order Comment: Speci men Type: BLOOD SPECIMENOrdering Facility: [facility] Address: [address] [place] [address] Performed By: #### 5 7021-8 ####[facility] LABORATORYCLIA [id number] [address] WBC (Bld) [#/Vol] 8.76 10*3/uL Normal 3.70-11.00 [facility] Comment on above: Order Comment: Speci men Type: BLOOD SPECIMENOrdering Facility: [facility] Address: [address] [place] [address] Performed By: #### 5 7021-8 ####[facility] LABORATORYCLIA [id number] [address] MRI BRAIN WO/W IVCONon 07-28 MRI BRAIN WO/W IVCON Normal [facility] Magnesium SerPl-mCncon 07-28 Magnesium [Mass/Vol] 2.5 mg/dL High 1.7-2.3 [facility] Comment on above: Order Comment: Speci men Type: BLOOD SPECIMENOrdering Facility: [facility] Address: [address] [place] [address] Performed By: #### 1 4338-8, 52937-6, 2777-1, 49721-0 ####[facility] LABORATORYCLIA [id number] [address] NURSING PROGon 03-24-2022 NURSING PROG Normal [facility] NURSING PROG Normal [facility] Phosphate SerPl-mCncon 07-28 Phosphate [Mass/Vol] 2.8 mg/dL Normal 2.7-4.8 [facility] Comment on above: Order Comment: Speci men Type: BLOOD SPECIMENOrdering Facility: [facility] Address: [address] [place] [address] Performed By: #### 1 4338-8, 82581-5, 2777-1, 96820-0 ####[facility] LABORATORYCLIA [id number] [address] Prealbumin [Mass/Vol]on 07-06 Prealbumin Nephelometry [Mass/Vol] 25 mg/dL Normal 17-36 [facility] Comment on above: Order Comment: Speci men Type: BLOOD SPECIMENOrdering Facility: [facility] Address: [address] [place] [address] Performed By: #### 1 4338-8, 63195-9, 2777-1, 44069-5 ####[facility] LABORATORYCLIA [id number] [address] aPTT PPPon 07-28-2021 aPTT Coag (PPP) [Time] 53.0 s High 23.0-32.4 [facility] Comment on above: Order Comment: Speci men Type: BLOOD SPECIMENOrdering Facility: [facility] Address: [address] [place] [address] Performed By: #### 1 4979-9 ####[facility] LABORATORYCLIA [id number] [address] aPTT Coag (PPP) [Time] 57.2 s High 23.0-32.4 [facility] Comment on above: Order Comment: Speci men Type: BLOOD SPECIMENOrdering Facility: [facility] Address: [address] [place] [address] Performed By: #### 1 4979-9 ####[facility]CL[facility] [id number] [address] [place] Bacteria CSF Culton 07-28-19 22 Bacteria identified Cx Nom (CSF) CULTURE, CSF: No growth 14 days GRAM STAIN: No organisms seen Rare Polymorphonuclear leukocytes Rare Red Blood Cells Gram stain performed on cytospun specimen. Normal [facility] Comment on above: Performed By: #### 6 06-4 ####[facility] LABORATORYCLIA [id number] [address] [place] Bacteria Spec Resp Culton Bacteria identified Respiratory culture Nom (Unsp spec) CULTURE, RESPIRATORY: Rare Normal respiratory chris present GRAM STAIN: No organisms seen Rare Polymorphonuclear leukocytes Rare Epithelial cells Normal [facility] Comment on above: Performed By: #### 3 2355-0 ####[facility] LABORATORYCLIA [id number] [address] [place] CASE MANAGEMon 07-27-2021 CASE MANAGEM Normal [facility] CBC W Auto Differential pane l (Bld)on 07-27-2021 Basophils (Bld) [#/Vol] 0.04 10*3/uL Normal <0.11 [facility] Comment on above: Order Comment: Speci men Type: BLOOD SPECIMENOrdering Facility: [facility] Address: [address] [place] [address] Performed By: #### 5 7021-8 ####[facility] LABORATORYCLIA [id number] [address] [place] Basophils/100 WBC (Bld) 0.4 % Normal [facility] Comment on above: Order Comment: Speci men Type: BLOOD SPECIMENOrdering Facility: [facility] Address: [address] [place] [address] Performed By: #### 5 7021-8 ####[facility] LABORATORYCLIA [id number] [address] [place] Differential cell count method Nom (Bld) Auto Normal [facility] Comment on above: Order Comment: Speci men Type: BLOOD SPECIMENOrdering Facility: [facility] Address: [address] [place] [address] Performed By: #### 5 7021-8 ####[facility] LABORATORYCLIA [id number] [address] [place] Eosinophils (Bld) [#/Vol] 0.50 10*3/uL High <0.46 [facility] Comment on above: Order Comment: Speci men Type: BLOOD SPECIMENOrdering Facility: [facility] Address: [address] [place] [address] Performed By: #### 5 7021-8 ####[facility] LABORATORYCLIA [id number] [address] Eosinophils/100 WBC (Bld) 5.2 % Normal [facility] Comment on above: Order Comment: Speci men Type: BLOOD SPECIMENOrdering Facility: [facility] Address: [address] [place] [address] Performed By: #### 5 7021-8 ####[facility] LABORATORYCLIA [id number] [address] Erythrocyte distribution width (RBC) [Ratio] 16.8 % High 11.5-15.0 [facility] Comment on above: Order Comment: Speci men Type: BLOOD SPECIMENOrdering Facility: [facility] Address: [address] [place] [address] Performed By: #### 5 7021-8 ####[facility] LABORATORYCLIA [id number] [address] Hematocrit (Bld) [Volume fraction] 29.8 % Low 39.0-51.0 [facility] Comment on above: Order Comment: Speci men Type: BLOOD SPECIMENOrdering Facility: [facility] Address: [address] [place] [address] Performed By: #### 5 7021-8 ####[facility] LABORATORYCLIA [id number] [address] Hemoglobin (Bld) [Mass/Vol] 9.0 g/dL Low 13.0-17.0 [facility] Comment on above: Order Comment: Speci men Type: BLOOD SPECIMENOrdering Facility: [facility] Address: [address] [place] [address] Performed By: #### 5 7021-8 ####[facility]ORATORYCLIA [id number] [address] OF [facility] IMMATURE GRAN % 0.6 % Normal [facility] Comment on above: Order Comment: Speci men Type: BLOOD SPECIMENOrdering Facility: [facility] Address: [address] [place] [address] Performed By: #### 5 7021-8 ####[facility]ATORYCLIA [id number] [address] IMMATURE GRAN ABS 0.06 k/uL Normal <0.10 [facility] Comment on above: Order Comment: Speci men Type: BLOOD SPECIMENOrdering Facility: [facility] Address: [address] [place] [address] Performed By: #### 5 7021-8 ####[facility] LABORATORYCLIA [id number] [place] [address] [place] Lymphocytes (Bld) [#/Vol] 1.73 10*3/uL Normal 1.00-4.00 [facility] Comment on above: Order Comment: Speci men Type: BLOOD SPECIMENOrdering Facility: [facility] Address: [address] [place] [address] Performed By: #### 5 7021-8 ####[facility]ORATORYCLIA [id number] [address] Lymphocytes/100 WBC (Bld) 17.9 % Normal [facility] Comment on above: Order Comment: Speci men Type: BLOOD SPECIMENOrdering Facility: [facility] Address: [address] [place] [address] Performed By: #### 5 7021-8 ####[facility]ATORYCLIA [id number] [address] MCH (RBC) [Entitic mass] 28.1 pg Normal 26.0-34.0 [facility] Comment on above: Order Comment: Speci men Type: BLOOD SPECIMENOrdering Facility: [facility] Address: [address] [place] [address] Performed By: #### 5 7021-8 ####[facility] LABORATORYCLIA [id number] [address] [place] MCHC (RBC) [Mass/Vol] 30.2 g/dL Low 30.5-36.0 [facility] Comment on above: Order Comment: Speci men Type: BLOOD SPECIMENOrdering Facility: [facility] Address: [address] [place] [address] Performed By: #### 5 7021-8 ####[facility] LABORATORYCLIA [id number] [address] MCV (RBC) [Entitic vol] 93.1 fL Normal 80.0-100.0 [facility] Comment on above: Order Comment: Speci men Type: BLOOD SPECIMENOrdering Facility: [facility] Address: [address] [place] [address] Performed By: #### 5 7021-8 ####[facility] LABORATORYCLIA [id number] [address] OF [facility] Monocytes (Bld) [#/Vol] 0.59 10*3/uL Normal <0.87 [facility] Comment on above: Order Comment: Speci men Type: BLOOD SPECIMENOrdering Facility: [facility] Address: [address] [place] [address] Performed By: #### 5 7021-8 ####[facility] LABORATORYCLIA [id number] [address] Monocytes/100 WBC (Bld) 6.1 % Normal [facility] Comment on above: Order Comment: Speci men Type: BLOOD SPECIMENOrdering Facility: [facility] Address: [address] [place] [address] Performed By: #### 5 7021-8 ####[facility] LABORATORYCLIA [id number] [address] [place] Neutrophils (Bld) [#/Vol] 6.75 10*3/uL Normal 1.45-7.50 [facility] Comment on above: Order Comment: Speci men Type: BLOOD SPECIMENOrdering Facility: [facility] Address: [address] [place] [address] Performed By: #### 5 7021-8 ####[facility] LABORATORYCLIA [id number] [address] [place] Neutrophils/100 WBC (Bld) 69.8 % Normal [facility] Comment on above: Order Comment: Speci men Type: BLOOD SPECIMENOrdering Facility: [facility] Address: [address] [place] [address] Performed By: #### 5 7021-8 ####[facility] LABORATORYCLIA [id number] [address] [place] Nucleated RBC (Bld) [#/Vol] 10*3/uL Normal <0.01 [facility] Comment on above: Order Comment: Speci men Type: BLOOD SPECIMENOrdering Facility: [facility] Address: [address] [place] [address] Performed By: #### 5 7021-8 ####[facility] LABORATORYCLIA [id number] [address] [place] Nucleated RBC/100 WBC (Bld) [Ratio] 0.0 /100 WBC Normal [facility] Comment on above: Order Comment: Speci men Type: BLOOD SPECIMENOrdering Facility: [facility] Address: [address] [place] [address] Performed By: #### 5 7021-8 ####[facility] LABORATORYCLIA [id number] [address] [place] Platelet mean volume (Bld) [Entitic vol] 11.3 fL Normal 9.0-12.7 [facility] Comment on above: Order Comment: Speci men Type: BLOOD SPECIMENOrdering Facility: [facility] Address: [address] [place] [address] Performed By: #### 5 7021-8 ####[facility] LABORATORYCLIA [id number] [address] STATES OF [facility] Platelets (Bld) [#/Vol] 227 10*3/uL Normal 150-400 [facility] Comment on above: Order Comment: Speci men Type: BLOOD SPECIMENOrdering Facility: [facility] Address: [address] [place] [address] Performed By: #### 5 7021-8 ####[facility] LABORATORYCLIA [id number] [address] [place] RBC (Bld) [#/Vol] 3.20 10*6/uL Low 4.20-6.00 [facility] Comment on above: Order Comment: Speci men Type: BLOOD SPECIMENOrdering Facility: [facility] Address: [address] [place] [address] Performed By: #### 5 7021-8 ####[facility] LABORATORYCLIA [id number] [address] OF [facility] WBC (Bld) [#/Vol] 9.67 10*3/uL Normal 3.70-11.00 [facility] Comment on above: Order Comment: Speci men Type: BLOOD SPECIMENOrdering Facility: [facility] Address: [address] [place] [address] Performed By: #### 5 7021-8 ####[facility] LABORATORYCLIA [id number] [address] CONSULT PROGon 07-27-2021 CONSULT PROG Normal [facility] CSF MANUAL DIFFon 07-27-2021 DIF TTL, CSF 100 cells counted Normal [facility] Comment on above: Order Comment: Speci men Type: CEREBROSPINAL FLUIDOrdering Facility: [facility] Address: [address] [place] [address] Performed By: #### L [id number], 12402-8, [id number] ####[facility]ORATORYCLIA [id number] [place] [address] [place] LYMPH%, CSF 75 % Normal 50-90 [facility] Comment on above: Order Comment: Speci men Type: CEREBROSPINAL FLUIDOrdering Facility: [facility] Address: [address] [place] [address] Performed By: #### L [id number], 37990-7, [id number] ####[facility]ATORYCLIA [id number] [place] [address] [place] MONO%, CSF 22 % Normal 10-50 [facility] Comment on above: Order Comment: Speci men Type: CEREBROSPINAL FLUIDOrdering Facility: [facility] Address: [address] [place] [address] Performed By: #### L [id number], 98814-4, [id number] ####[facility]ORATORYCLIA [id number] [place] [address] [place] NEUT%, CSF 2 % Normal 0-3 [facility] Comment on above: Order Comment: Speci men Type: CEREBROSPINAL FLUIDOrdering Facility: [facility] Address: [address] [place] [address] Performed By: #### L [id number], 24646-6, [id number] ####[facility]ATORYCLIA [id number] [place] [address] [place] OTHER CL%, CSF 1 % Normal [facility] Comment on above: Order Comment: Speci men Type: CEREBROSPINAL FLUIDOrdering Facility: [facility] Address: [address] [place] [address] Result Comment: Path ologist review of microscopy results to follow Performed By: #### L [id number], 87008-3, [id number] ####[facility]ORATORYCLIA [id number] [address] [place] CSF PATHOLOGIST INTERP (LAB REFLEX ORDER-NO BILL)on 07-27-2021 CSF STAFF REVIEW Negative Normal [facility] Comment on above: Order Comment: Speci men Type: CEREBROSPINAL FLUIDOrdering Facility: [facility] Address: [address] [place] [address] Performed By: #### L [id number], 26942-4, [id number] ####[facility]ORATORYCLIA [id number] [address] Pathologist name Reviewed by Amador Stevens MD [facility] Comment on above: Order Comment: Speci men Type: CEREBROSPINAL FLUIDOrdering Facility: [facility] Address: [address] [place] [address] Performed By: #### L [id number], 09565-9, [id number] ####[facility]ATORYCLIA [id number] [address] Cell count panel (CSF)on Clarity (CSF) Clear Normal Clear [facility] Comment on above: Order Comment: Speci men Type: CEREBROSPINAL FLUIDOrdering Facility: [facility] Address: [address] [place] [address] Performed By: #### L [id number], 23703-2, [id number] ####[facility]ORATORYCLIA [id number] [address] Clarity (Unsp spec) Not Indicated Normal Clear [facility] Comment on above: Order Comment: Speci men Type: CEREBROSPINAL FLUIDOrdering Facility: [facility] Address: [address] [place] [address] Performed By: #### L SR6860, 70971-9, [id number] ####[facility]ORATORYCLIA [id number] [address] Color (CSF) Colorless Normal Colorless [facility] Comment on above: Order Comment: Speci men Type: CEREBROSPINAL FLUIDOrdering Facility: [facility] Address: [address] [place] [address] Performed By: #### L [id number], 64229-5, [id number] ####[facility]ORATORYCLIA [id number] [address] OF [facility] Color (Spun CSF) Not Indicated Normal Colorless [facility] Comment on above: Order Comment: Speci men Type: CEREBROSPINAL FLUIDOrdering Facility: [facility] Address: [address] [place] [address] Performed By: #### L [id number], 63815-7, [id number] ####[facility] LABORATORYCLIA [id number] [address] CSF TU[employer] Normal [facility] Comment on above: Order Comment: Speci men Type: CEREBROSPINAL FLUIDOrdering Facility: [facility] Address: [address] [place] [address] Performed By: #### L [id number], 11039-6, [id number] ####[facility] LABORATORYCLIA [id number] [address] OF [facility] RBC Manual cnt (CSF) [#/Vol] 39 cells/uL High 0-5 [facility] Comment on above: Order Comment: Speci men Type: CEREBROSPINAL FLUIDOrdering Facility: [facility] Address: [address] [place] [address] Performed By: #### L [id number], 52032-3, [id number] ####[facility] LABORATORYCLIA [id number] [address] WBC Manual cnt (CSF) [#/Vol] 14 cells/uL High 0-5 [facility] Comment on above: Order Comment: Speci men Type: CEREBROSPINAL FLUIDOrdering Facility: [facility] Address: [address] [place] [address] Performed By: #### L [id number], 65991-4, [id number] ####[facility] LABORATORYCLIA [id number] [address] [place] Glucose CSF-mCncon 2 Glucose (CSF) [Mass/Vol] 64 mg/dL Normal 40-70 [facility] Comment on above: Order Comment: Speci men Type: CEREBROSPINAL FLUIDOrdering Facility: [facility] Address: [address] [place] [address] Result Comment: Lumb ar CSF glucose values of healthy patients are approximately 60% of the plasma values and must always be compared with a concurrently measured plasma value for adequate clinical interpretation.References: 1. Glucose HK (GLUC3) [package insert V 12.0 Cymraes]. [employer], [place], [place]. September 2015. 2. Michelle Moore, Loki HGarfield (2015). Chapter 7: Glucose and Lactate. F. Irina rose al.(eds.), Cerebrospinal Fluid in Clinical Neurology. Saunders: [employer]. Performed By: #### 2 342-4, 2880-3 ####[facility] LABORATORYCLIA [id number] [place] [address] [place] NUTRITIONon 07-27-2021 NUTRITION Normal [facility] Prot CSF-mCncon 07-27-2021 Protein (CSF) [Mass/Vol] 58 mg/dL High 15-45 [facility] Comment on above: Order Comment: Speci men Type: CEREBROSPINAL FLUIDOrdering Facility: [facility] Address: [address] [place] [address] Performed By: #### 2 342-4, 2880-3 ####[facility]PITALCLIA [id number] [place] [address] [place] aPTT PPPon 07-27-2021 aPTT Coag (PPP) [Time] 68.4 s High 23.0-32.4 [facility] Comment on above: Order Comment: Speci men Type: BLOOD SPECIMENOrdering Facility: [facility] Address: [address] [place] [address] Performed By: #### 1 4979-9 ####[facility] LABORATORYCLIA [id number] [address] [place] aPTT Coag (PPP) [Time] 51.3 s High 23.0-32.4 [facility] Comment on above: Order Comment: Speci men Type: BLOOD SPECIMENOrdering Facility: [facility] Address: [address] [place] [address] Performed By: #### 1 4979-9 ####[facility] LABORATORYCLIA [id number] [address] ALLIED HEALTHon 07-26-2021 ALLIED HEALTH HNO ID: [id number] Author: Stephanie Maldonado, powertrain engineer Service: Radiology Author Type: Entry Level Account Representative Type: Allied Health Filed: 07/26/2021 4:10 PM Note Text: Spoke with nurse. Pt getting new EVD today. Try tomorrow. Normal [facility] Bacteria CSF Culton 07-27-19 Bacteria identified Cx Nom (CSF) Abnormal [facility] Comment on above: Performed By: #### 6 06-4 ####[facility] LABORATORYCLIA [id number] [address] OF [facility] Basic metabolic 2000 panelon 07-26-2021 Anion gap [Moles/Vol] 6 mmol/L Low 9-18 [facility] Comment on above: Order Comment: Speci men Type: BLOOD SPECIMENOrdering Facility: [facility] Address: [address] [place] [address] Performed By: #### 2 4321-2 ####[facility] LABORATORYCLIA [id number] [address] [place] Calcium [Mass/Vol] 9.2 mg/dL Normal 8.5-10.2 [facility] Comment on above: Order Comment: Speci men Type: BLOOD SPECIMENOrdering Facility: [facility] Address: [address] [place] [address] Performed By: #### 2 4321-2 ####[facility] LABORATORYCLIA [id number] [address] [place] Chloride [Moles/Vol] 99 mmol/L Normal 97-105 [facility] Comment on above: Order Comment: Speci men Type: BLOOD SPECIMENOrdering Facility: [facility] Address: [address] [place] [address] Performed By: #### 2 4321-2 ####[facility] LABORATORYCLIA [id number] [place] [address] [place] CO2 [Moles/Vol] 32 mmol/L High 22-30 [facility] Comment on above: Order Comment: Speci men Type: BLOOD SPECIMENOrdering Facility: [facility] Address: [address] [place] [address] Performed By: #### 2 4321-2 ####[facility] LABORATORYCLIA [id number] [address] OF [facility] Creatinine [Mass/Vol] 0.74 mg/dL Normal 0.73-1.22 [facility] Comment on above: Order Comment: Speci men Type: BLOOD SPECIMENOrdering Facility: [facility] Address: [address] [place] [address] Performed By: #### 2 4321-2 ####[facility]ITALIA [id number] [address] ESTIMATED GLOMERULAR FILTRATION RATE 98 mL/min/1.73m??? Normal >=60 [facility] Comment on above: Order Comment: Speci men Type: BLOOD SPECIMENOrdering Facility: [facility] Address: [address] [place] [address] Result Comment: Luzmaria mated Glomerular Filtration Rate [...] By: #### 2 4321-2 ####[facility] LABORATORYCLIA [id number] [address] [place] [facility] Glucose [Mass/Vol] 126 mg/dL High 74-99 [facility] Comment on above: Order Comment: Speci men Type: BLOOD SPECIMENOrdering Facility: [facility] Address: [address] [place] [address] Result Comment: The [place] Diabetes Association (ADA) provides guidance for cutoff [...] Standards of Medical Care in Diabetes 2016, [place] Diabetes Association. Diabetes Care. 2016.39(Suppl 1). Performed By: #### 2 4321-2 ####[facility] LABORATORYCLIA [id number] [address] [place] [facility] Potassium [Moles/Vol] 4.2 mmol/L Normal 3.7-5.1 [facility] Comment on above: Order Comment: Speci men Type: BLOOD SPECIMENOrdering Facility: [facility] Address: [address] [place] [address] Performed By: #### 2 1-2 ####[facility]ITALCLIA [id number] [address] Sodium [Moles/Vol] 137 mmol/L Normal 136-144 [facility] Comment on above: Order Comment: Speci men Type: BLOOD SPECIMENOrdering Facility: [facility] Address: [address] [place] [address] Performed By: #### 2 4321-2 ####[facility] LABORATORYCLIA [id number] [address] [place] Urea nitrogen [Mass/Vol] 36 mg/dL High 9-24 [facility] Comment on above: Order Comment: Speci men Type: BLOOD SPECIMENOrdering Facility: [facility] Address: [address] [address] Performed By: #### 2 4321-2 ####[facility] LABORATORYCLIA [id number] [address] [place] CBC W Auto Differential pane l (Bld)on 07-26-2021 Basophils (Bld) [#/Vol] 0.04 10*3/uL Normal <0.11 [facility] Comment on above: Order Comment: Speci men Type: BLOOD SPECIMENOrdering Facility: [facility] Address: [address] [place] [address] Performed By: #### 5 7021-8 ####[facility] LABORATORYCLIA [id number] [address] Basophils/100 WBC (Bld) 0.4 % Normal [facility] Comment on above: Order Comment: Speci men Type: BLOOD SPECIMENOrdering Facility: [facility] Address: [address] [place] [address] Performed By: #### 5 7021-8 ####[facility] LABORATORYCLIA [id number] [address] Differential cell count method Nom (Bld) Auto Normal [facility] Comment on above: Order Comment: Speci men Type: BLOOD SPECIMENOrdering Facility: [facility] Address: [address] [place] [address] Performed By: #### 5 7021-8 ####[facility] LABORATORYCLIA [id number] [address] STATES [facility] Eosinophils (Bld) [#/Vol] 0.63 10*3/uL High <0.46 [facility] Comment on above: Order Comment: Speci men Type: BLOOD SPECIMENOrdering Facility: [facility] Address: [address] [place] [address] Performed By: #### 5 7021-8 ####[facility] LABORATORYCLIA [id number] [address] Eosinophils/100 WBC (Bld) 5.8 % Normal [facility] Comment on above: Order Comment: Speci men Type: BLOOD SPECIMENOrdering Facility: [facility] Address: [address] [place] [address] Performed By: #### 5 7021-8 ####[facility] LABORATORYCLIA [id number] [address] Erythrocyte distribution width (RBC) [Ratio] 16.8 % High 11.5-15.0 [facility] Comment on above: Order Comment: Speci men Type: BLOOD SPECIMENOrdering Facility: [facility] Address: [address] [place] [address] Performed By: #### 5 7021-8 ####[facility] LABORATORYCLIA [id number] [address] Hematocrit (Bld) [Volume fraction] 31.2 % Low 39.0-51.0 [facility] Comment on above: Order Comment: Speci men Type: BLOOD SPECIMENOrdering Facility: [facility] Address: [address] [place] [address] Performed By: #### 5 7021-8 ####[facility]PITALCLIA [id number] [address] Hemoglobin (Bld) [Mass/Vol] 9.1 g/dL Low 13.0-17.0 [facility] Comment on above: Order Comment: Speci men Type: BLOOD SPECIMENOrdering Facility: [facility] Address: [address] [place] [address] Performed By: #### 5 7021-8 ####[facility] LABORATORYCLIA [id number] [address] IMMATURE GRAN % 0.6 % Normal [facility] Comment on above: Order Comment: Speci men Type: BLOOD SPECIMENOrdering Facility: [facility] Address: [address] [place] [address] Performed By: #### 5 7021-8 ####[facility]ORATORYCLIA [id number] [address] IMMATURE GRAN ABS 0.07 k/uL Normal <0.10 [facility] Comment on above: Order Comment: Speci men Type: BLOOD SPECIMENOrdering Facility: [facility] Address: [address] [place] [address] Performed By: #### 5 7021-8 ####[facility] LABORATORYCLIA [id number] [address] [place] [facility] Lymphocytes (Bld) [#/Vol] 2.16 10*3/uL Normal 1.00-4.00 [facility] Comment on above: Order Comment: Speci men Type: BLOOD SPECIMENOrdering Facility: [facility] Address: [address] [place] [address] Performed By: #### 5 7021-8 ####[facility]ORATORYCLIA [id number] [address] Lymphocytes/100 WBC (Bld) 20.0 % Normal [facility] Comment on above: Order Comment: Speci men Type: BLOOD SPECIMENOrdering Facility: [facility] Address: [address] [place] [address] Performed By: #### 5 7021-8 ####[facility]ORATORYCLIA [id number] [address] [place] MCH (RBC) [Entitic mass] 27.7 pg Normal 26.0-34.0 [facility] Comment on above: Order Comment: Speci men Type: BLOOD SPECIMENOrdering Facility: [facility] Address: [address] [place] [address] Performed By: #### 5 7021-8 ####[facility]ORATORYCLIA [id number] [address] [place] MCHC (RBC) [Mass/Vol] 29.2 g/dL Low 30.5-36.0 [facility] Comment on above: Order Comment: Speci men Type: BLOOD SPECIMENOrdering Facility: [facility] Address: [address] [place] [address] Performed By: #### 5 7021-8 ####[facility] LABORATORYCLIA [id number] [address] MCV (RBC) [Entitic vol] 95.1 fL Normal 80.0-100.0 [facility] Comment on above: Order Comment: Speci men Type: BLOOD SPECIMENOrdering Facility: [facility] Address: [address] [place] [address] Performed By: #### 5 7021-8 ####[facility] LABORATORYCLIA [id number] [place] [address] [place] Monocytes (Bld) [#/Vol] 0.63 10*3/uL Normal <0.87 [facility] Comment on above: Order Comment: Speci men Type: BLOOD SPECIMENOrdering Facility: [facility] Address: [address] [place] [address] Performed By: #### 5 7021-8 ####[facility] LABORATORYCLIA [id number] [address] [place] Monocytes/100 WBC (Bld) 5.8 % Normal [facility] Comment on above: Order Comment: Speci men Type: BLOOD SPECIMENOrdering Facility: [facility] Address: [address] [place] [address] Performed By: #### 5 7021-8 ####[facility]ATORYCLIA [id number] [place] [address] [place] Neutrophils (Bld) [#/Vol] 7.25 10*3/uL Normal 1.45-7.50 [facility] Comment on above: Order Comment: Speci men Type: BLOOD SPECIMENOrdering Facility: [facility] Address: [address] [place] [address] Performed By: #### 5 7021-8 ####[facility]ORYCLIA [id number] [place] [address] [place] Neutrophils/100 WBC (Bld) 67.4 % Normal [facility] Comment on above: Order Comment: Speci men Type: BLOOD SPECIMENOrdering Facility: [facility] Address: [address] [place] [address] Performed By: #### 5 7021-8 ####[facility] LABORATORYCLIA [id number] [address] [place] Nucleated RBC (Bld) [#/Vol] 10*3/uL Normal <0.01 [facility] Comment on above: Order Comment: Speci men Type: BLOOD SPECIMENOrdering Facility: [facility] Address: [address] [place] [address] Performed By: #### 5 7021-8 ####[facility] LABORATORYCLIA [id number] [address] [place] Nucleated RBC/100 WBC (Bld) [Ratio] 0.0 /100 WBC Normal [facility] Comment on above: Order Comment: Speci men Type: BLOOD SPECIMENOrdering Facility: [facility] Address: [address] [place] [address] Performed By: #### 5 7021-8 ####[facility] LABORATORYCLIA [id number] [address] [place] Platelet mean volume (Bld) [Entitic vol] 11.2 fL Normal 9.0-12.7 [facility] Comment on above: Order Comment: Speci men Type: BLOOD SPECIMENOrdering Facility: [facility] Address: [address] [place] [address] Performed By: #### 5 7021-8 ####[facility] LABORATORYCLIA [id number] [address] [place] Platelets (Bld) [#/Vol] 245 10*3/uL Normal 150-400 [facility] Comment on above: Order Comment: Speci men Type: BLOOD SPECIMENOrdering Facility: [facility] Address: [address] [place] [address] Performed By: #### 5 7021-8 ####[facility] LABORATORYCLIA [id number] [address] [place] RBC (Bld) [#/Vol] 3.28 10*6/uL Low 4.20-6.00 [facility] Comment on above: Order Comment: Speci men Type: BLOOD SPECIMENOrdering Facility: [facility] Address: [address] [place] [address] Performed By: #### 5 7021-8 ####[facility] LABORATORYCLIA [id number] [address] WBC (Bld) [#/Vol] 10.78 10*3/uL Normal 3.70-11.00 [facility] Comment on above: Order Comment: Speci men Type: BLOOD SPECIMENOrdering Facility: [facility] Address: [address] [place] [address] Performed By: #### 5 7021-8 ####[facility] LABORATORYCLIA [id number] [address] OF [facility] CSF MANUAL DIFFon 07-26-2021 DIF TTL, CSF 100 cells counted Normal [facility] Comment on above: Order Comment: Speci men Type: CEREBROSPINAL FLUIDOrdering Facility: [facility] Address: [address] [place] [address] Performed By: #### 3 4563-7, [id number], [id number] ####[facility] LABORATORYCLIA [id number] [address] [place] LYMPH%, CSF 26 % Low 50-90 [facility] Comment on above: Order Comment: Speci men Type: CEREBROSPINAL FLUIDOrdering Facility: [facility] Address: [address] [place] [address] Performed By: #### 3 4563-7, [id number], [id number] ####[facility] LABORATORYCLIA [id number] [address] [place] MACRO%, CSF 10 % High <1 [facility] Comment on above: Order Comment: Speci men Type: CEREBROSPINAL FLUIDOrdering Facility: [facility] Address: [address] [place] [address] Performed By: #### 3 4563-7, [id number], [id number] ####[facility]ORYCLIA [id number] [address] [place] MONO%, CSF 20 % Normal 10-50 [facility] Comment on above: Order Comment: Speci men Type: CEREBROSPINAL FLUIDOrdering Facility: [facility] Address: [address] [place] [address] Performed By: #### 3 4563-7, [id number], [id number] ####[facility] LABORATORYCLIA [id number] [place] [address] [place] NE[place]%, CSF 40 % High 0-3 [facility] Comment on above: Order Comment: Speci men Type: CEREBROSPINAL FLUIDOrdering Facility: [facility] Address: [address] [place] [address] Performed By: #### 3 4563-7, [id number], [id number] ####[facility] LABORATORYCLIA [id number] [address] OTHER CL%, CSF 2 % Normal [facility] Comment on above: Order Comment: Speci men Type: CEREBROSPINAL FLUIDOrdering Facility: [facility] Address: [address] [place] [address] Result Comment: Path review to follow. Performed By: #### 3 4563-7, [id number], [id number] ####[facility] LABORATORYCLIA [id number] [address] [place] REAC LYMPH %, CSF 2 % Normal [facility] Comment on above: Order Comment: Speci men Type: CEREBROSPINAL FLUIDOrdering Facility: [facility] Address: [address] [place] [address] Performed By: #### 3 4563-7, [id number], [id number] ####[facility] LABORATORYCLIA [id number] [address] CSF PATHOLOGIST INTERP (LAB REFLEX ORDER-NO BILL)on 07-26-2021 CSF STAFF REVIEW Negative for maligna nt cells. Rare bacteria present, cocci in pairs and chains. Correlation with CSF cultures is recommended. Normal [facility] Comment on above: Order Comment: Speci men Type: CEREBROSPINAL FLUIDOrdering Facility: [facility] Address: [address] [address] Performed By: #### 3 4563-7, [id number], [id number] ####[facility]ORATORYCLIA [id number] [address] Pathologist name Reviewed by Amador Stevens MD Normal [facility] Comment on above: Order Comment: Speci men Type: CEREBROSPINAL FLUIDOrdering Facility: [facility] Address: [address] [place] [address] Performed By: #### 3 4563-7, [id number], [id number] ####[facility]ATORYCLIA [id number] [address] Cell count panel (CSF)on Clarity (CSF) Slightly Cloudy Abnormal Clear [facility] Comment on above: Order Comment: Speci men Type: CEREBROSPINAL FLUIDOrdering Facility: [facility] Address: [address] [place] [address] Performed By: #### 3 4563-7, [id number], [id number] ####[facility]ATORYCLIA [id number] [address] Clarity (Unsp spec) Clear Normal Clear [facility] Comment on above: Order Comment: Speci men Type: CEREBROSPINAL FLUIDOrdering Facility: [facility] Address: [address] [place] [address] Performed By: #### 3 4563-7, [id number], [id number] ####[facility]ATORYCLIA [id number] [address] Color (CSF) Colorless Normal Colorless [facility] Comment on above: Order Comment: Speci men Type: CEREBROSPINAL FLUIDOrdering Facility: [facility] Address: [facility] [address] Performed By: #### 3 4563-7, [id number], [id number] ####[facility]ORATORYCLIA [id number] [address] [place] Color (Spun CSF) Not Indicated Normal Colorless [facility] Comment on above: Order Comment: Speci men Type: CEREBROSPINAL FLUIDOrdering Facility: [facility] Address: [address] [place] [address] Performed By: #### 3 4563-7, [id number], [id number] ####[facility] LABORATORYCLIA [id number] [address] CSF TUBE [employer]BER [employer] Normal [facility] Comment on above: Order Comment: Speci men Type: CEREBROSPINAL FLUIDOrdering Facility: [facility] Address: [address] [place] [address] Performed By: #### 3 4563-7, [id number], [id number] ####[facility] LABORATORYCLIA [id number] [address] STATES OF [facility] RBC Manual cnt (CSF) [#/Vol] 1 cells/uL Normal 0-5 [facility] Comment on above: Order Comment: Speci men Type: CEREBROSPINAL FLUIDOrdering Facility: [facility] Address: [address] [place] [address] Performed By: #### 3 4563-7, [id number], [id number] ####[facility] LABORATORYCLIA [id number] [address] WBC Manual cnt (CSF) [#/Vol] 50 cells/uL High 0-5 [facility] Comment on above: Order Comment: Speci men Type: CEREBROSPINAL FLUIDOrdering Facility: [facility] Address: [address] [place] [address] Performed By: #### 3 4563-7, [id number], [id number] ####[facility] LABORATORYCLIA [id number] [address] STATES [place] Glucose CSF-mCncon 2 Glucose (CSF) [Mass/Vol] 64 mg/dL Normal 40-70 [facility] Comment on above: Order Comment: Speci men Type: CEREBROSPINAL FLUIDOrdering Facility: [facility] Address: [address] [place] [address] Result Comment: Lumb ar CSF glucose values of healthy patients are approximately 60% of the plasma values and must always be compared with a concurrently measured plasma value for adequate clinical interpretation.References: 1. Glucose HK (GLUC3) [package insert V 12.0 Cymraes]. [employer], [place], [place]. September 2015. 2. Michelle Moore, Loki HGarfield (2015). Chapter 7: Glucose and Lactate. F. Irina rose al.(eds.), Cerebrospinal Fluid in Clinical Neurology. Saunders: [employer]. Performed By: #### 2 880-3, 2342-4 ####[facility] LABORATORYCLIA [id number] [address] Magnesium [facility] Magnesium [Mass/Vol] 2.3 mg/dL Normal 1.7-2.3 [facility] Comment on above: Order Comment: Speci men Type: BLOOD SPECIMENOrdering Facility: [facility] Address: [address] [place] [address] Performed By: #### 1 9123-9, 2777-1, 3016-3 ####[facility]PITALCLIA [id number] [address] NURSING PROGon 07-26-2021 NURSING PROG Normal [facility] Phosphate SerPl-ncon 07-26 Phosphate [Mass/Vol] 2.6 mg/dL Low 2.7-4.8 [facility] Comment on above: Order Comment: Speci men Type: BLOOD SPECIMENOrdering Facility: [facility] Address: [address] [place] [address] Performed By: #### 1 9123-9, 2777-1, 3016-3 ####[facility] LABORATORYCLIA [id number] [address] Prot CSF-mCncon 07-26-2021 Protein (CSF) [Mass/Vol] 64 mg/dL High 15-45 [facility] Comment on above: Order Comment: Speci men Type: CEREBROSPINAL FLUIDOrdering Facility: [facility] Address: [address] [place] [address] Performed By: #### 2 880-3, 2342-4 ####[facility] LABORATORYCLIA [id number] [address] [place] THERAPY NTon 07-26-2021 THERAPY NT Normal [facility] TSH SerPl-aCncon 07-26-2021 TSH Qn 1.470 m[IU]/L Normal 0.270-4.200 [facility] Comment on above: Order Comment: Speci men Type: BLOOD SPECIMENOrdering Facility: [facility] Address: [address] [place] [address] Performed By: #### 1 9123-9, 2777-1, 3016-3 ####[facility] LABORATORYCLIA [id number] [address] [place] VITAMIN B12 BLOODon 07-27-19 22 Cobalamin (Vitamin B12) [Mass/Vol] 934 pg/mL Normal 232-1,245 [facility] Comment on above: Order Comment: Speci men Type: BLOOD SPECIMENOrdering Facility: [facility] Address: [address] [place] [address] Performed By: #### B 12 ####[facility] LABORATORYCLIA [id number] [address] [place] aPTT PPPon 07-26-2021 aPTT Coag (PPP) [Time] 53.6 s High 23.0-32.4 [facility] Comment on above: Order Comment: Speci men Type: BLOOD SPECIMENOrdering Facility: [facility] Address: [address] [place] [address] Performed By: #### 1 4979-9 ####[facility] LABORATORYCLIA [id number] [address] [place] aPTT Coag (PPP) [Time] 44.9 s High 23.0-32.4 [facility] Comment on above: Order Comment: Speci men Type: BLOOD SPECIMENOrdering Facility: [facility] Address: [address] [place] [address] Performed By: #### 1 4979-9 ####[facility] LABORATORYCLIA [id number] [address] ALLIED HEALTHon 07-25-2021 ALLIED HEALTH HNO ID: [id number] Author: Shannon Bess RT(R) Service: Radiology Author Type: Technologist Type: Allied Health Filed: 07/25/2021 1:37 PM Note Text: Called floor for MRI screening form [id number] Normal [facility] Bacteria Bld Culton 07-26-19 Bacteria identified Cx Nom (Bld) CULTURE, BLOOD: No growth 5 days Normal [facility] Comment on above: Performed By: #### 6 00-7 ####[facility] LABORATORYCLIA [id number] [address] Bacteria identified Cx Nom (Bld) CULTURE, BLOOD: No growth 5 days Normal [facility] Comment on above: Performed By: #### 6 00-7 ####[facility] LABORATORYCLIA [id number] [address] CASE MANAGEMon 07-25-2021 CASE MANAGEM Normal [facility] CBC W Auto Differential pane l (Bld)on 07-25-2021 Basophils (Bld) [#/Vol] 0.06 10*3/uL Normal <0.11 [facility] Comment on above: Order Comment: Speci men Type: BLOOD SPECIMENOrdering Facility: [facility] Address: [address] [place] [address] Performed By: #### 5 7021-8 ####[facility] LABORATORYCLIA [id number] [address] Basophils/100 WBC (Bld) 0.6 % Normal [facility] Comment on above: Order Comment: Speci men Type: BLOOD SPECIMENOrdering Facility: [facility] Address: [address] [place] [address] Performed By: #### 5 7021-8 ####[facility]ORATORYCLIA [id number] [address] Differential cell count method Nom (Bld) Auto Normal [facility] Comment on above: Order Comment: Speci men Type: BLOOD SPECIMENOrdering Facility: [facility] Address: [address] [place] [address] Performed By: #### 5 7021-8 ####[facility] LABORATORYCLIA [id number] [address] Eosinophils (Bld) [#/Vol] 0.26 10*3/uL Normal <0.46 [facility] Comment on above: Order Comment: Speci men Type: BLOOD SPECIMENOrdering Facility: [facility] Address: [address] [place] [address] Performed By: #### 5 7021-8 ####[facility] LABORATORYCLIA [id number] [address] Eosinophils/100 WBC (Bld) 2.5 % Normal [facility] Comment on above: Order Comment: Speci men Type: BLOOD SPECIMENOrdering Facility: [facility] Address: [address] [place] [address] Performed By: #### 5 7021-8 ####[facility] LABORATORYCLIA [id number] [address] Erythrocyte distribution width (RBC) [Ratio] 16.9 % High 11.5-15.0 [facility] Comment on above: Order Comment: Speci men Type: BLOOD SPECIMENOrdering Facility: [facility] Address: [address] [place] [address] Performed By: #### 5 7021-8 ####[facility] LABORATORYCLIA [id number] [address] Hematocrit (Bld) [Volume fraction] 29.6 % Low 39.0-51.0 [facility] Comment on above: Order Comment: Speci men Type: BLOOD SPECIMENOrdering Facility: [facility] Address: [address] [place] [address] Performed By: #### 5 7021-8 ####[facility]ORATORYCLIA [id number] [address] Hemoglobin (Bld) [Mass/Vol] 8.8 g/dL Low 13.0-17.0 [facility] Comment on above: Order Comment: Speci men Type: BLOOD SPECIMENOrdering Facility: [facility] Address: [address] [place] [address] Performed By: #### 5 7021-8 ####[facility]ORATORYCLIA [id number] [address] IMMATURE GRAN % 0.6 % Normal [facility] Comment on above: Order Comment: Speci men Type: BLOOD SPECIMENOrdering Facility: [facility] Address: [address] [place] [address] Performed By: #### 5 7021-8 ####[facility]ORATORYCLIA [id number] [address] IMMATURE GRAN ABS 0.06 k/uL Normal <0.10 [facility] Comment on above: Order Comment: Speci men Type: BLOOD SPECIMENOrdering Facility: [facility] Address: [address] [place] [address] Performed By: #### 5 7021-8 ####[facility] LABORATORYCLIA [id number] [address] [place] Lymphocytes (Bld) [#/Vol] 2.15 10*3/uL Normal 1.00-4.00 [facility] Comment on above: Order Comment: Speci men Type: BLOOD SPECIMENOrdering Facility: [facility] Address: [address] [place] [address] Performed By: #### 5 7021-8 ####[facility]ORATORYCLIA [id number] [address] Lymphocytes/100 WBC (Bld) 20.7 % Normal [facility] Comment on above: Order Comment: Speci men Type: BLOOD SPECIMENOrdering Facility: [facility] Address: [address] [place] [address] Performed By: #### 5 7021-8 ####[facility]ORATORYCLIA [id number] [address] MCH (RBC) [Entitic mass] 28.2 pg Normal 26.0-34.0 [facility] Comment on above: Order Comment: Speci men Type: BLOOD SPECIMENOrdering Facility: [facility] Address: [address] [place] [address] Performed By: #### 5 7021-8 ####[facility]ORATORYCLIA [id number] [address] MCHC (RBC) [Mass/Vol] 29.7 g/dL Low 30.5-36.0 [facility] Comment on above: Order Comment: Speci men Type: BLOOD SPECIMENOrdering Facility: [facility] Address: [address] [place] [address] Performed By: #### 5 7021-8 ####[facility]ORATORYCLIA [id number] [address] MCV (RBC) [Entitic vol] 94.9 fL Normal 80.0-100.0 [facility] Comment on above: Order Comment: Speci men Type: BLOOD SPECIMENOrdering Facility: [facility] Address: [address] [place] [address] Performed By: #### 5 7021-8 ####[facility] LABORATORYCLIA [id number] [address] Monocytes (Bld) [#/Vol] 0.62 10*3/uL Normal <0.87 [facility] Comment on above: Order Comment: Speci men Type: BLOOD SPECIMENOrdering Facility: [facility] Address: [address] [place] [address] Performed By: #### 5 7021-8 ####[facility] LABORATORYCLIA [id number] [address] [place] Monocytes/100 WBC (Bld) 6.0 % Normal [facility] Comment on above: Order Comment: Speci men Type: BLOOD SPECIMENOrdering Facility: [facility] Address: [address] [place] [address] Performed By: #### 5 7021-8 ####[facility] LABORATORYCLIA [id number] [place] [address] [place] Neutrophils (Bld) [#/Vol] 7.25 10*3/uL Normal 1.45-7.50 [facility] Comment on above: Order Comment: Speci men Type: BLOOD SPECIMENOrdering Facility: [facility] Address: [address] [place] [address] Performed By: #### 5 7021-8 ####[facility] LABORATORYCLIA [id number] [address] [place] Neutrophils/100 WBC (Bld) 69.6 % Normal [facility] Comment on above: Order Comment: Speci men Type: BLOOD SPECIMENOrdering Facility: [facility] Address: [address] [place] [address] Performed By: #### 5 7021-8 ####[facility] LABORATORYCLIA [id number] [place] [address] [place] Nucleated RBC (Bld) [#/Vol] 10*3/uL Normal <0.01 [facility] Comment on above: Order Comment: Speci men Type: BLOOD SPECIMENOrdering Facility: [facility] Address: [address] [place] [address] Performed By: #### 5 7021-8 ####[facility]ORATORYCLIA [id number] [address] [place] Nucleated RBC/100 WBC (Bld) [Ratio] 0.0 /100 WBC Normal [facility] Comment on above: Order Comment: Speci men Type: BLOOD SPECIMENOrdering Facility: [facility] Address: [address] [place], [place] [address] Performed By: #### 5 7021-8 ####[facility]ORATORYCLIA [id number] [address] Platelet mean volume (Bld) [Entitic vol] 11.3 fL Normal 9.0-12.7 [facility] Comment on above: Order Comment: Speci men Type: BLOOD SPECIMENOrdering Facility: [facility] Address: [address] [place], [place] [address] Performed By: #### 5 7021-8 ####[facility]ORATORYCLIA [id number] [address] [place] Platelets (Bld) [#/Vol] 243 10*3/uL Normal 150-400 [facility] Comment on above: Order Comment: Speci men Type: BLOOD SPECIMENOrdering Facility: [facility] Address: [address] [place] [address] Performed By: #### 5 7021-8 ####[facility]ORATORYCLIA [id number] [address] [place] RBC (Bld) [#/Vol] 3.12 10*6/uL Low 4.20-6.00 [facility] Comment on above: Order Comment: Speci men Type: BLOOD SPECIMENOrdering Facility: [facility] Address: [address] [place] [address] Performed By: #### 5 7021-8 ####[facility]ORATORYCLIA [id number] [address] [place] WBC (Bld) [#/Vol] 10.40 10*3/uL Normal 3.70-11.00 [facility] Comment on above: Order Comment: Speci men Type: BLOOD SPECIMENOrdering Facility: [facility] Address: [address] [place], [place] [address] Performed By: #### 5 7021-8 ####[facility]ORATORYCLIA [id number] [address] CONSULT PROGon 07-25-2021 CONSULT PROG Normal [facility] MYCOPLASMA PNEUM IGMon 07-25 M. PNEUMO IGM, QUAL Negative Normal Negative [facility] Comment on above: Order Comment: Speci men Type: BLOOD SPECIMENOrdering Facility: [facility] Address: [address] [place] [address] Result Comment: Myco plasma pneumoniae IgM antibody test is used as an aid in diagnosis of recent infection with M. pneumoniae. It may occasionally remain elevated for extended periods after an acute infection. Cannot exclude recent infection if the specimen collected 7-10 days after onset of signs and symptoms. Clinical correlation is required. Performed By: #### M YCOPM ####[facility] LABCLIA [id number] [facility] [id number] STATES OF [facility] NURSING PROGon 07-25-2021 NURSING PROG Normal [facility] THERAPY NTon 07-25-2021 THERAPY NT Normal [facility] THERAPY NT Normal [facility] aPTT PPPon 07-25-2021 aPTT Coag (PPP) [Time] 62.6 s High 23.0-32.4 [facility] Comment on above: Order Comment: Speci men Type: BLOOD SPECIMENOrdering Facility: [facility] Address: [address] [place] [address] Performed By: #### 1 4979-9 ####[facility] LABORATORYCLIA [id number] [place] [address] [place] Bacteria Ur Culton 2 Bacteria identified Cx Nom (U) CULTURE, URINE: No growth (<100 CFU/ml) Normal [facility] Comment on above: Performed By: #### 6 30-4 ####[facility] LABORATORYCLIA [id number] [place] [address] [place] Basic metabolic 2000 panelon 07-24-2021 Anion gap [Moles/Vol] 13 mmol/L Normal 9-18 [facility] Comment on above: Order Comment: Speci men Type: BLOOD SPECIMENOrdering Facility: [facility] Address: [address] [place] [address] Performed By: #### 1 9123-9, PROCAL, 7-1, 64022-9 ####[facility] LABORATORYCLIA [id number] [place] [address] [place] Calcium [Mass/Vol] 9.5 mg/dL Normal 8.5-10.2 [facility] Comment on above: Order Comment: Speci men Type: BLOOD SPECIMENOrdering Facility: [facility] Address: [address] [place] [address] Performed By: #### 1 9123-9, PROCAL, 7-1, 89883-6 ####[facility] LABORATORYCLIA [id number] [place] [address] [place] Chloride [Moles/Vol] 102 mmol/L Normal 97-105 [facility] Comment on above: Order Comment: Speci men Type: BLOOD SPECIMENOrdering Facility: [facility] Address: [address] [place] [address] Performed By: #### 1 9123-9, PROCAL, 7-1, 08993-6 ####[facility] LABORATORYCLIA [id number] [place] [address] [place] CO2 [Moles/Vol] 28 mmol/L Normal 22-30 [facility] Comment on above: Order Comment: Speci men Type: BLOOD SPECIMENOrdering Facility: [facility] Address: [address] [place] [address] Performed By: #### 1 9123-9, PROCAL, 7-1, 72619-5 ####[facility] LABORATORYCLIA [id number] [place] [address] [place] Creatinine [Mass/Vol] 0.86 mg/dL Normal 0.73-1.22 [facility] Comment on above: Order Comment: Speci men Type: BLOOD SPECIMENOrdering Facility: [facility] Address: [address] [place] [address] Performed By: #### 1 9123-9, PROCAL, 2777-1, 07716-7 ####[facility]ITALIA [id number] [address] STATES [facility] ESTIMATED GLOMERULAR FILTRATION RATE 94 mL/min/1.73m??? Normal >=60 [facility] Comment on above: Order Comment: Shira feldman Type: BLOOD SPECIMENOrdering Facility: [facility] Address: [address] [place] [address] Result Comment: Luzmaria mated Glomerular Filtration Rate [...] Performed By: #### 1 9123-9, PROCAL, 2777-1, 90496-4 ####[facility] [id number] [address] Glucose [Mass/Vol] 148 mg/dL High 74-99 [facility] Comment on above: Order Comment: Shira francia Type: BLOOD SPECIMENOrdering Facility: [facility] Address: [address] [place] [address] Result Comment: The [place] Diabetes Association (ADA) provides guidance for cutoff [...] Standards of Medical Care in Diabetes 2016, [place] Diabetes Association. Diabetes Care. 2016.39(Suppl 1). Performed By: #### 1 9123-9, PROCAL, 2777-1, 83732-4 ####[facility] LABORATORYIA [id number] [address] [place] Potassium [Moles/Vol] 4.0 mmol/L Normal 3.7-5.1 [facility] Comment on above: Order Comment: Speci men Type: BLOOD SPECIMENOrdering Facility: [facility] Address: [address] [place] [address] Performed By: #### 1 9123-9, PROCAL, 2777-1, 17853-5 ####[facility] LABORATORYCLIA [id number] [address] STATES [facility] Sodium [Moles/Vol] 143 mmol/L Normal 136-144 [facility] Comment on above: Order Comment: Speci men Type: BLOOD SPECIMENOrdering Facility: [facility] Address: [address] [place] [address] Performed By: #### 1 9123-9, PROCAL, 2777-1, 91213-8 ####[facility] LABORATORYCLIA [id number] [address] [place] [facility] Urea nitrogen [Mass/Vol] 38 mg/dL High 9-24 [facility] Comment on above: Order Comment: Speci men Type: BLOOD SPECIMENOrdering Facility: [facility] Address: [address] [place] [address] Performed By: #### 1 9123-9, PROCAL, 2777-1, 04290-8 ####[facility] LABORATORYCLIA [id number] [address] [place] [facility] CBC W Auto Differential pane l (Bld)on 07-24-2021 Basophils (Bld) [#/Vol] 0.06 10*3/uL Normal <0.11 [facility] Comment on above: Order Comment: Speci men Type: BLOOD SPECIMENOrdering Facility: [facility] Address: [address] [place] [address] Performed By: #### 5 7021-8 ####[facility] LABORATORYCLIA [id number] [address] Basophils/100 WBC (Bld) 0.6 % Normal [facility] Comment on above: Order Comment: Speci men Type: BLOOD SPECIMENOrdering Facility: [facility] Address: [address] [place] [address] Performed By: #### 5 7021-8 ####[facility] LABORATORYCLIA [id number] [address] Differential cell count method Nom (Bld) Auto Normal [facility] Comment on above: Order Comment: Speci men Type: BLOOD SPECIMENOrdering Facility: [facility] Address: [address] [place] [address] Performed By: #### 5 7021-8 ####[facility] LABORATORYCLIA [id number] [address] STATES [facility] Eosinophils (Bld) [#/Vol] 0.03 10*3/uL Normal <0.46 [facility] Comment on above: Order Comment: Speci men Type: BLOOD SPECIMENOrdering Facility: [facility] Address: [address] [place] [address] Performed By: #### 5 7021-8 ####[facility] LABORATORYCLIA [id number] [address] Eosinophils/100 WBC (Bld) 0.3 % Normal [facility] Comment on above: Order Comment: Speci men Type: BLOOD SPECIMENOrdering Facility: [facility] Address: [address] [place] [address] Performed By: #### 5 7021-8 ####[facility] LABORATORYCLIA [id number] [address] Erythrocyte distribution width (RBC) [Ratio] 17.0 % High 11.5-15.0 [facility] Comment on above: Order Comment: Speci men Type: BLOOD SPECIMENOrdering Facility: [facility] Address: [address] [place] [address] Performed By: #### 5 7021-8 ####[facility] LABORATORYCLIA [id number] [place] [address] [place] Hematocrit (Bld) [Volume fraction] 30.5 % Low 39.0-51.0 [facility] Comment on above: Order Comment: Speci men Type: BLOOD SPECIMENOrdering Facility: [facility] Address: [address] [place] [address] Performed By: #### 5 7021-8 ####[facility] LABORATORYCLIA [id number] [address] STATES OF [facility] Hemoglobin (Bld) [Mass/Vol] 9.0 g/dL Low 13.0-17.0 [facility] Comment on above: Order Comment: Speci men Type: BLOOD SPECIMENOrdering Facility: [facility] Address: [address] [place] [address] Performed By: #### 5 7021-8 ####[facility] LABORATORYCLIA [id number] [address] IMMATURE GRAN % 0.5 % Normal [facility] Comment on above: Order Comment: Speci men Type: BLOOD SPECIMENOrdering Facility: [facility] Address: [address] [place] [address] Performed By: #### 5 7021-8 ####[facility] LABORATORYCLIA [id number] [address] IMMATURE GRAN ABS 0.05 k/uL Normal <0.10 [facility] Comment on above: Order Comment: Speci men Type: BLOOD SPECIMENOrdering Facility: [facility] Address: [address] [place] [address] Performed By: #### 5 7021-8 ####[facility] LABORATORYCLIA [id number] [address] Lymphocytes (Bld) [#/Vol] 1.68 10*3/uL Normal 1.00-4.00 [facility] Comment on above: Order Comment: Speci men Type: BLOOD SPECIMENOrdering Facility: [facility] Address: [address] [place] [address] Performed By: #### 5 7021-8 ####[facility] LABORATORYCLIA [id number] [address] Lymphocytes/100 WBC (Bld) 16.2 % Normal [facility] Comment on above: Order Comment: Speci men Type: BLOOD SPECIMENOrdering Facility: [facility] Address: [address] [place] [address] Performed By: #### 5 7021-8 ####[facility] LABORATORYCLIA [id number] [address] MCH (RBC) [Entitic mass] 27.4 pg Normal 26.0-34.0 [facility] Comment on above: Order Comment: Speci men Type: BLOOD SPECIMENOrdering Facility: [facility] Address: [address] [place] [address] Performed By: #### 5 7021-8 ####[facility] LABORATORYCLIA [id number] [address] MCHC (RBC) [Mass/Vol] 29.5 g/dL Low 30.5-36.0 [facility] Comment on above: Order Comment: Speci men Type: BLOOD SPECIMENOrdering Facility: [facility] Address: [address] [place] [address] Performed By: #### 5 7021-8 ####[facility] LABORATORYCLIA [id number] [address] STATES [facility] MCV (RBC) [Entitic vol] 93.0 fL Normal 80.0-100.0 [facility] Comment on above: Order Comment: Speci men Type: BLOOD SPECIMENOrdering Facility: [facility] Address: [address] [place] [address] Performed By: #### 5 7021-8 ####[facility] LABORATORYCLIA [id number] [address] Monocytes (Bld) [#/Vol] 0.63 10*3/uL Normal <0.87 [facility] Comment on above: Order Comment: Speci men Type: BLOOD SPECIMENOrdering Facility: [facility] Address: [address] [place] [address] Performed By: #### 5 7021-8 ####[facility]ORATORYCLIA [id number] [address] [place] Monocytes/100 WBC (Bld) 6.1 % Normal [facility] Comment on above: Order Comment: Speci men Type: BLOOD SPECIMENOrdering Facility: [facility] Address: [address] [place] [address] Performed By: #### 5 7021-8 ####[facility] LABORATORYCLIA [id number] [address] [place] Neutrophils (Bld) [#/Vol] 7.91 10*3/uL High 1.45-7.50 [facility] Comment on above: Order Comment: Speci men Type: BLOOD SPECIMENOrdering Facility: [facility] Address: [address] [place] [address] Performed By: #### 5 7021-8 ####[facility]ORATORYCLIA [id number] [address] [place] Neutrophils/100 WBC (Bld) 76.3 % Normal [facility] Comment on above: Order Comment: Speci men Type: BLOOD SPECIMENOrdering Facility: [facility] Address: [address] [place] [address] Performed By: #### 5 7021-8 ####[facility]ORATORYCLIA [id number] [address] [place] Nucleated RBC (Bld) [#/Vol] 10*3/uL Normal <0.01 [facility] Comment on above: Order Comment: Speci men Type: BLOOD SPECIMENOrdering Facility: [facility] Address: [address] [place] [address] Performed By: #### 5 7021-8 ####[facility]ORATORYCLIA [id number] [address] [place] Nucleated RBC/100 WBC (Bld) [Ratio] 0.0 /100 WBC Normal [facility] Comment on above: Order Comment: Speci men Type: BLOOD SPECIMENOrdering Facility: [facility] Address: [address] [place] [address] Performed By: #### 5 7021-8 ####[facility] LABORATORYCLIA [id number] [address] [place] Platelet mean volume (Bld) [Entitic vol] 11.1 fL Normal 9.0-12.7 [facility] Comment on above: Order Comment: Speci men Type: BLOOD SPECIMENOrdering Facility: [facility] Address: [address] [place] [address] Performed By: #### 5 7021-8 ####[facility] LABORATORYCLIA [id number] [address] [place] Platelets (Bld) [#/Vol] 285 10*3/uL Normal 150-400 [facility] Comment on above: Order Comment: Speci men Type: BLOOD SPECIMENOrdering Facility: [facility] Address: [address] [place] [address] Performed By: #### 5 7021-8 ####[facility] LABORATORYCLIA [id number] [address] [place] RBC (Bld) [#/Vol] 3.28 10*6/uL Low 4.20-6.00 [facility] Comment on above: Order Comment: Speci men Type: BLOOD SPECIMENOrdering Facility: [facility] Address: [address] [place], [place] [id number] Performed By: #### 5 7021-8 ####[facility] LABORATORYCLIA [id number] [address] [place] WBC (Bld) [#/Vol] 10.36 10*3/uL Normal 3.70-11.00 [facility] Comment on above: Order Comment: Speci men Type: BLOOD SPECIMENOrdering Facility: [facility] Address: [address] [place], [place] [address] Performed By: #### 5 7021-8 ####[facility] LABORATORYCLIA [id number] [address] STATES OF [facility] Legionella Ag Ur Qlon 2021 Legionella sp Ag Ql (U) Negative Normal Negative [facility] Comment on above: Order Comment: Speci men Type: URINE SPECIMENOrdering Facility: [facility] Address: [address] [place] [address] Performed By: #### 3 2781-7 ####[facility] LABORATORYCLIA [id number] [address] [place] Magnesium SerPl-mCncon 07-24 Magnesium [Mass/Vol] 2.3 mg/dL Normal 1.7-2.3 [facility] Comment on above: Order Comment: Speci men Type: BLOOD SPECIMENOrdering Facility: [facility] Address: [address] [place] [address] Performed By: #### 1 9123-9, KATIE, 2777-, 96951-9 ####[facility]PITALCLIA [id number] [address] OF [facility] NURSING PROGon 07-24-2021 NURSING PROG Normal [facility] PROCALCITONIN (LAB)on 2021 Procalcitonin [Mass/Vol] 0.15 ng/mL High <0.09 [facility] Comment on above: Order Comment: Speci men Type: BLOOD SPECIMENOrdering Facility: [facility] Address: [address] [place] [address] Result Comment: For a guided interpretation of test results, please visit the Change in Procalcitonin Calculator, [email or web address]. Performed By: #### 1 9123-9, PROCAL, 2777-1, 04365-9 ####[facility] LABORATORYCLIA [id number] [address] [place] Phosphate SerPl-mCncon 07-24 Phosphate [Mass/Vol] 3.9 mg/dL Normal 2.7-4.8 [facility] Comment on above: Order Comment: Speci men Type: BLOOD SPECIMENOrdering Facility: [facility] Address: [address] [place] [address] Performed By: #### 1 9123-9, PROCAL, 2777-1, 55312-2 ####[facility] LABORATORYCLIA [id number] [address] STREPTOCOCCUS PNEUMONIAE AGo n 07-24-2021 STREPTOCOCCUS PNEUMONIAE AG Normal [facility] Comment on above: Performed By: #### S PNAG ####[facility] LABORATORYCLIA [id number] [address] aPTT PPPon 07-24-2021 aPTT Coag (PPP) [Time] 60.8 s High 23.0-32.4 [facility] Comment on above: Order Comment: Speci men Type: BLOOD SPECIMENOrdering Facility: [facility] Address: [address] [place] [address] Performed By: #### 1 4979-9 ####[facility] LABORATORYCLIA [id number] [address] aPTT Coag (PPP) [Time] 38.2 s High 23.0-32.4 [facility] Comment on above: Order Comment: Speci men Type: BLOOD SPECIMENOrdering Facility: [facility] Address: [address] [place] [address] Performed By: #### 1 4979-9 ####[facility] LABORATORYCLIA [id number] [address] aPTT Coag (PPP) [Time] 35.9 s High 23.0-32.4 [facility] Comment on above: Order Comment: Speci men Type: BLOOD SPECIMENOrdering Facility: [facility] Address: [address] [place] [address] Performed By: #### 1 4979-9 ####[facility] LABORATORYCLIA [id number] [place] [address] [place] aPTT Coag (PPP) [Time] 28.8 s Normal 23.0-32.4 [facility] Comment on above: Order Comment: Speci men Type: BLOOD SPECIMENOrdering Facility: [facility] Address: [address] [place] [address] Performed By: #### 1 4979-9 ####[facility] LABORATORYCLIA [id number] [address] [place] ALLIED HEALTHon 07-23-2021 ALLIED HEALTH Normal [facility] ALLIED HEALTH Normal [facility] ALLIED HEALTH Normal [facility] ARTERIAL BLOOD GASESon 07-23 Base excess Calc (Bld) [Moles/Vol] 4 mmol/L High 0-2 [facility] Comment on above: Order Comment: Speci men Type: ARTERIAL BLOOD SPECIMENOrdering Facility: [facility] Address: [address] [place] [address] Performed By: #### A LLBG ####[facility] LABORATORYCLIA [id number] [address] STATES [facility] Body temperature 100.58 [degF] Normal [facility] Comment on above: Order Comment: Speci men Type: ARTERIAL BLOOD SPECIMENOrdering Facility: [facility] Address: [address] [place] [address] Performed By: #### A LLBG ####[facility] LABORATORYCLIA [id number] [address] [place] CALCIUM IONIZED, PH CORRECTED 1.26 mmol/L Normal 1.08-1.30 [facility] Comment on above: Order Comment: Speci men Type: ARTERIAL BLOOD SPECIMENOrdering Facility: [facility] Address: [address] [place] [address] Performed By: #### A LLBG ####[facility] LABORATORYCLIA [id number] [address] [place] Calcium.ionized (BldV) [Mass/Vol] 1.25 mmol/L Normal 1.08-1.30 [facility] Comment on above: Order Comment: Speci men Type: ARTERIAL BLOOD SPECIMENOrdering Facility: [facility] Address: [address] [place] [address] Performed By: #### A LLBG ####[facility] LABORATORYCLIA [id number] [address] Carboxyhemoglobin (BldA) [Mass fraction] 1.2 % Normal 0.0-2.0 [facility] Comment on above: Order Comment: Speci men Type: ARTERIAL BLOOD SPECIMENOrdering Facility: [facility] Address: [address] [place] [address] Result Comment: Carb oxyhemoglobin Reference Range for Smokers: 2.0-8.0% Performed By: #### A LLBG ####[facility] LABORATORYCLIA [id number] [address] CO2 (Bld) [Partial pressure] 46 mm Hg Normal 36-46 [facility] Comment on above: Order Comment: Speci men Type: ARTERIAL BLOOD SPECIMENOrdering Facility: [facility] Address: [address] [place] [address] Performed By: #### A LLBG ####[facility] LABORATORYCLIA [id number] [address] [place] CO2 [Moles/Vol] 27 mmol/L Normal 22-28 [facility] Comment on above: Order Comment: Speci men Type: ARTERIAL BLOOD SPECIMENOrdering Facility: [facility] Address: [address] [place] [address] Performed By: #### A LLBG ####[facility] LABORATORYCLIA [id number] [address] [place] CO2 adjusted to patient's actual temperature (Bld) [Partial pressure] 48 mmHg High 36-46 [facility] Comment on above: Order Comment: Speci men Type: ARTERIAL BLOOD SPECIMENOrdering Facility: [facility] Address: [address] [place] [address] Performed By: #### A LLBG ####[facility] LABORATORYCLIA [id number] [address] [place] Glucose [Mass/Vol] 134 mg/dL High 60-105 [facility] Comment on above: Order Comment: Speci men Type: ARTERIAL BLOOD SPECIMENOrdering Facility: [facility] Address: [address] [place] [address] Performed By: #### A LLBG ####[facility] LABORATORYCLIA [id number] [place] [address] [place] HCO3 (Bld) [Moles/Vol] 29 mmol/L High 22-26 [facility] Comment on above: Order Comment: Speci men Type: ARTERIAL BLOOD SPECIMENOrdering Facility: [facility] Address: [address] [place] [address] Performed By: #### A LLBG ####[facility] LABORATORYCLIA [id number] [address] [place] Hematocrit (Bld) [Volume fraction] 31.4 % Low 39.0-51.0 [facility] Comment on above: Order Comment: Speci men Type: ARTERIAL BLOOD SPECIMENOrdering Facility: [facility] Address: [address] [place] [address] Performed By: #### A LLBG ####[facility] LABORATORYCLIA [id number] [address] [place] Hemoglobin (Bld) [Mass/Vol] 10.2 g/dL Low 13.0-17.0 [facility] Comment on above: Order Comment: Speci men Type: ARTERIAL BLOOD SPECIMENOrdering Facility: [facility] Address: [address] [address] Performed By: #### A LLBG ####[facility] LABORATORYCLIA [id number] [address] [place] Methemoglobin (Bld) [Mass fraction] % Normal 0.0-1.5 [facility] Comment on above: Order Comment: Speci men Type: ARTERIAL BLOOD SPECIMENOrdering Facility: [facility] Address: [address] [place] [address] Performed By: #### A LLBG ####[facility]ORATORYCLIA [id number] [address] O2 THERAPY Ventilator Normal [facility] Comment on above: Order Comment: Speci men Type: ARTERIAL BLOOD SPECIMENOrdering Facility: [facility] Address: [address] [address] Performed By: #### A LLBG ####[facility]ORATORYCLIA [id number] [address] [place] Oxygen (Bld) [Partial pressure] 113 mm Hg High 85-95 [facility] Comment on above: Order Comment: Speci men Type: ARTERIAL BLOOD SPECIMENOrdering Facility: [facility] Address: [address] [place] [address] Performed By: #### A LLBG ####[facility] LABORATORYCLIA [id number] [address] Oxygen adjusted to patient's actual temperature (Bld) [Partial pressure] 119 mmHg High 85-95 [facility] Comment on above: Order Comment: Speci men Type: ARTERIAL BLOOD SPECIMENOrdering Facility: [facility] Address: [address] [place] [address] Performed By: #### A LLBG ####[facility] LABORATORYCLIA [id number] [address] [place] OXYGEN SATURATION, ARTERIAL 98 % Normal 95-98 [facility] Comment on above: Order Comment: Speci men Type: ARTERIAL BLOOD SPECIMENOrdering Facility: [facility] Address: [address] [address] Performed By: #### A LLBG ####[facility]ORATORYCLIA [id number] [address] Oxyhemoglobin (BldA) [Mass fraction] 96 % Normal 95-98 [facility] Comment on above: Order Comment: Speci men Type: ARTERIAL BLOOD SPECIMENOrdering Facility: [facility] Address: [address] [address] Performed By: #### A LLBG ####[facility] LABORATORYCLIA [id number] [address] STATES [facility] pH (Bld) 7.41 [pH] Normal 7.35-7.45 [facility] Comment on above: Order Comment: Speci men Type: ARTERIAL BLOOD SPECIMENOrdering Facility: [facility] Address: [address] [place] [address] Performed By: #### A LLBG ####[facility] LABORATORYCLIA [id number] [address] pH adjusted to patient's actual temperature (Bld) 7.40 Normal 7.35-7.45 [facility] Comment on above: Order Comment: Speci men Type: ARTERIAL BLOOD SPECIMENOrdering Facility: [facility] Address: [address] [place] [address] Performed By: #### A LLBG ####[facility] LABORATORYCLIA [id number] [address] Potassium [Moles/Vol] 4.3 mmol/L Normal 3.5-5.0 [facility] Comment on above: Order Comment: Speci men Type: ARTERIAL BLOOD SPECIMENOrdering Facility: [facility] Address: [address] [place] [address] Performed By: #### A LLBG ####[facility] LABORATORYCLIA [id number] [address] [place] Sodium [Moles/Vol] 144 mmol/L Normal 136-144 [facility] Comment on above: Order Comment: Speci men Type: ARTERIAL BLOOD SPECIMENOrdering Facility: [facility] Address: [address] [place] [address] Performed By: #### A LLBG ####[facility] LABORATORYCLIA [id number] [address] [place] Bacteria CSF Culton 07-24-19 22 Bacteria identified Cx Nom (CSF) Abnormal [facility] Comment on above: Performed By: #### 6 06-4 ####[facility]ORATORYCLIA [id number] [place] [address] [place] Basic metabolic 2000 panelon 07-23-2021 Anion gap [Moles/Vol] 12 mmol/L Normal 9-18 [facility] Comment on above: Order Comment: Speci men Type: BLOOD SPECIMENOrdering Facility: [facility] Address: [address] [place] [address] Performed By: #### 2 4321-2 ####[facility]ATORYCLIA [id number] [place] [address] [place] Calcium [Mass/Vol] 9.7 mg/dL Normal 8.5-10.2 [facility] Comment on above: Order Comment: Speci men Type: BLOOD SPECIMENOrdering Facility: [facility] Address: [address] [place] [address] Performed By: #### 2 4321-2 ####[facility] LABORATORYCLIA [id number] [address] [place] Chloride [Moles/Vol] 105 mmol/L Normal 97-105 [facility] Comment on above: Order Comment: Speci men Type: BLOOD SPECIMENOrdering Facility: [facility] Address: [address] [place] [address] Performed By: #### 2 4321-2 ####[facility]ORYCLIA [id number] [address] [place] CO2 [Moles/Vol] 28 mmol/L Normal 22-30 [facility] Comment on above: Order Comment: Speci men Type: BLOOD SPECIMENOrdering Facility: [facility] Address: [address] [place] [address] Performed By: #### 2 4321-2 ####[facility]ATORYCLIA [id number] [place] [address] [place] Creatinine [Mass/Vol] 0.78 mg/dL Normal 0.73-1.22 [facility] Comment on above: Order Comment: Speci men Type: BLOOD SPECIMENOrdering Facility: [facility] Address: [address] [place] [address] Performed By: #### 2 4321-2 ####[facility]ITALIA [id number] [address] ESTIMATED GLOMERULAR FILTRATION RATE 97 mL/min/1.73m??? Normal >=60 [facility] Comment on above: Order Comment: Shira feldman Type: BLOOD SPECIMENOrdering Facility: [facility] Address: [address] [place] [address] Result Comment: Luzmaria mated Glomerular Filtration Rate [...] actual GFR. Performed By: #### 2 4321-2 ####[facility] [id number] [address] [place] Glucose [Mass/Vol] 127 mg/dL High 74-99 [facility] Comment on above: Order Comment: Shira feldman Type: BLOOD SPECIMENOrdering Facility: [facility] Address: [address] [place] [address] Result Comment: The [place] Diabetes Association (ADA) provides guidance for cutoff [...] Standards of Medical Care in Diabetes 2016, [place] Diabetes Association. Diabetes Care. 2016.39(Suppl 1). Performed By: #### 2 4321-2 ####[facility] LABORATORYCLIA [id number] [place] [address] [place] Potassium [Moles/Vol] 4.3 mmol/L Normal 3.7-5.1 [facility] Comment on above: Order Comment: Speci men Type: BLOOD SPECIMENOrdering Facility: [facility] Address: [address] [place] [address] Performed By: #### 2 4321-2 ####[facility] LABORATORYCLIA [id number] [place] [address] [place] Sodium [Moles/Vol] 145 mmol/L High 136-144 [facility] Comment on above: Order Comment: Speci men Type: BLOOD SPECIMENOrdering Facility: [facility] Address: [address] [place] [address] Performed By: #### 2 4321-2 ####[facility]ITALIA [id number] [address] STATES [facility] Urea nitrogen [Mass/Vol] 37 mg/dL High 9-24 [facility] Comment on above: Order Comment: Speci men Type: BLOOD SPECIMENOrdering Facility: [facility] Address: [address] [place] [address] Performed By: #### 2 4321-2 ####[facility] LABORATORYCLIA [id number] [address] [place] C diff Tox gens Stl Ql MEGAN+p robeon 07-23-2021 C. difficile toxin genes MEGAN+probe Ql (Stl) Negative Normal Negative for C. difficile toxin by PCR [facility] Comment on above: Order Comment: Speci men Type: STOOL SPECIMENOrdering Facility: [facility] Address: [address] [place] [address] Performed By: #### 5 4067-4 ####[facility] LABORATORYCLIA [id number] [address] [place] CBC W Auto Differential pane l (Bld)on 07-23-2021 Basophils (Bld) [#/Vol] 0.07 10*3/uL Normal <0.11 [facility] Comment on above: Order Comment: Speci men Type: BLOOD SPECIMENOrdering Facility: [facility] Address: [address] [place] [address] Performed By: #### 5 7021-8 ####[facility]ORATORYCLIA [id number] [address] STATES [facility] Basophils/100 WBC (Bld) 0.5 % Normal [facility] Comment on above: Order Comment: Speci men Type: BLOOD SPECIMENOrdering Facility: [facility] Address: [address] [place] [address] Performed By: #### 5 7021-8 ####[facility] LABORATORYCLIA [id number] [address] Differential cell count method Nom (Bld) Auto Normal [facility] Comment on above: Order Comment: Speci men Type: BLOOD SPECIMENOrdering Facility: [facility] Address: [address] [place] [address] Performed By: #### 5 7021-8 ####[facility] LABORATORYCLIA [id number] [address] [place] Eosinophils (Bld) [#/Vol] 10*3/uL Normal <0.46 [facility] Comment on above: Order Comment: Speci men Type: BLOOD SPECIMENOrdering Facility: [facility] Address: [address] [place] [address] Performed By: #### 5 7021-8 ####[facility]ORYCLIA [id number] [address] Eosinophils/100 WBC (Bld) 0.2 % Normal [facility] Comment on above: Order Comment: Speci men Type: BLOOD SPECIMENOrdering Facility: [facility] Address: [address] [place] [address] Performed By: #### 5 7021-8 ####[facility]ATORYCLIA [id number] [address] [place] Erythrocyte distribution width (RBC) [Ratio] 16.7 % High 11.5-15.0 [facility] Comment on above: Order Comment: Speci men Type: BLOOD SPECIMENOrdering Facility: [facility] Address: [address] [place] [address] Performed By: #### 5 7021-8 ####[facility] LABORATORYCLIA [id number] [address] OF [facility] Hematocrit (Bld) [Volume fraction] 32.8 % Low 39.0-51.0 [facility] Comment on above: Order Comment: Speci men Type: BLOOD SPECIMENOrdering Facility: [facility] Address: [address] [place] [address] Performed By: #### 5 7021-8 ####[facility] LABORATORYCLIA [id number] [address] OF [facility] Hemoglobin (Bld) [Mass/Vol] 9.7 g/dL Low 13.0-17.0 [facility] Comment on above: Order Comment: Speci men Type: BLOOD SPECIMENOrdering Facility: [facility] Address: [address] [place] [address] Performed By: #### 5 7021-8 ####[facility] LABORATORYCLIA [id number] [address] OF [facility] IMMATURE GRAN % 0.7 % Normal [facility] Comment on above: Order Comment: Speci men Type: BLOOD SPECIMENOrdering Facility: [facility] Address: [address] [place] [address] Performed By: #### 5 7021-8 ####[facility] LABORATORYCLIA [id number] [address] IMMATURE GRAN ABS 0.09 k/uL Normal <0.10 [facility] Comment on above: Order Comment: Speci men Type: BLOOD SPECIMENOrdering Facility: [facility] Address: [address] [place] [address] Performed By: #### 5 7021-8 ####[facility] LABORATORYCLIA [id number] [address] OF [facility] Lymphocytes (Bld) [#/Vol] 1.94 10*3/uL Normal 1.00-4.00 [facility] Comment on above: Order Comment: Speci men Type: BLOOD SPECIMENOrdering Facility: [facility] Address: [address] [place] [address] Performed By: #### 5 7021-8 ####[facility] LABORATORYCLIA [id number] [address] Lymphocytes/100 WBC (Bld) 14.6 % Normal [facility] Comment on above: Order Comment: Speci men Type: BLOOD SPECIMENOrdering Facility: [facility] Address: [address] [place] [address] Performed By: #### 5 7021-8 ####[facility] LABORATORYCLIA [id number] [address] MCH (RBC) [Entitic mass] 27.2 pg Normal 26.0-34.0 [facility] Comment on above: Order Comment: Speci men Type: BLOOD SPECIMENOrdering Facility: [facility] Address: [address] [place] [address] Performed By: #### 5 7021-8 ####[facility] LABORATORYCLIA [id number] [address] [place] MCHC (RBC) [Mass/Vol] 29.6 g/dL Low 30.5-36.0 [facility] Comment on above: Order Comment: Speci men Type: BLOOD SPECIMENOrdering Facility: [facility] Address: [address] [place] [address] Performed By: #### 5 7021-8 ####[facility] LABORATORYCLIA [id number] [address] MCV (RBC) [Entitic vol] 92.1 fL Normal 80.0-100.0 [facility] Comment on above: Order Comment: Speci men Type: BLOOD SPECIMENOrdering Facility: [facility] Address: [address] [address] Performed By: #### 5 7021-8 ####[facility]ATORYCLIA [id number] [address] [place] Monocytes (Bld) [#/Vol] 0.74 10*3/uL Normal <0.87 [facility] Comment on above: Order Comment: Speci men Type: BLOOD SPECIMENOrdering Facility: [facility] Address: [address] [place] [address] Performed By: #### 5 7021-8 ####[facility] LABORATORYCLIA [id number] [address] [place] Monocytes/100 WBC (Bld) 5.6 % Normal [facility] Comment on above: Order Comment: Speci men Type: BLOOD SPECIMENOrdering Facility: [facility] Address: [address] [place] [address] Performed By: #### 5 7021-8 ####[facility] LABORATORYCLIA [id number] [address] [place] Neutrophils (Bld) [#/Vol] 10.43 10*3/uL High 1.45-7.50 [facility] Comment on above: Order Comment: Speci men Type: BLOOD SPECIMENOrdering Facility: [facility] Address: [address] [place] [address] Performed By: #### 5 7021-8 ####[facility]ORYCLIA [id number] [address] [place] Neutrophils/100 WBC (Bld) 78.4 % Normal [facility] Comment on above: Order Comment: Speci men Type: BLOOD SPECIMENOrdering Facility: [facility] Address: [address] [place] [address] Performed By: #### 5 7021-8 ####[facility]ATORYCLIA [id number] [place] [address] [place] Nucleated RBC (Bld) [#/Vol] 10*3/uL Normal <0.01 [facility] Comment on above: Order Comment: Speci men Type: BLOOD SPECIMENOrdering Facility: [facility] Address: [address] [place] [address] Performed By: #### 5 7021-8 ####[facility] LABORATORYCLIA [id number] [address] Nucleated RBC/100 WBC (Bld) [Ratio] 0.0 /100 WBC Normal [facility] Comment on above: Order Comment: Speci men Type: BLOOD SPECIMENOrdering Facility: [facility] Address: [address] [place], [place] [address] Performed By: #### 5 7021-8 ####[facility]ORATORYCLIA [id number] [address] [place] Platelet mean volume (Bld) [Entitic vol] 11.0 fL Normal 9.0-12.7 [facility] Comment on above: Order Comment: Speci men Type: BLOOD SPECIMENOrdering Facility: [facility] Address: [address] [place], [place] [address] Performed By: #### 5 7021-8 ####[facility]ORATORYCLIA [id number] [address] [place] Platelets (Bld) [#/Vol] 381 10*3/uL Normal 150-400 [facility] Comment on above: Order Comment: Speci men Type: BLOOD SPECIMENOrdering Facility: [facility] Address: [address] [place], [place] [address] Performed By: #### 5 7021-8 ####[facility] LABORATORYCLIA [id number] [address] [place] RBC (Bld) [#/Vol] 3.56 10*6/uL Low 4.20-6.00 [facility] Comment on above: Order Comment: Speci men Type: BLOOD SPECIMENOrdering Facility: [facility] Address: [address] [place] [address] Performed By: #### 5 7021-8 ####[facility] LABORATORYCLIA [id number] [place] [address] [place] WBC (Bld) [#/Vol] 13.29 10*3/uL High 3.70-11.00 [facility] Comment on above: Order Comment: Speci men Type: BLOOD SPECIMENOrdering Facility: [facility] Address: [address] [place] [address] Performed By: #### 5 7021-8 ####[facility] LABORATORYCLIA [id number] [address] [place] CONSULT PROGon 07-23-2021 CONSULT PROG Normal [facility] CONSULT PROG Normal [facility] CSF MANUAL DIFFon 07-23-2021 DIF TTL, CSF 100 cells counted Normal [facility] Comment on above: Order Comment: Speci men Type: CEREBROSPINAL FLUIDOrdering Facility: [facility] Address: [address] [place] [address] Performed By: #### L [id number], [id number], 07953-7 ####[facility] LABORATORYCLIA [id number] [address] [place] LYMPH%, CSF 2 % Low 50-90 [facility] Comment on above: Order Comment: Speci men Type: CEREBROSPINAL FLUIDOrdering Facility: [facility] Address: [address] [place] [address] Performed By: #### L [id number], [id number], 39743-8 ####[facility] LABORATORYCLIA [id number] [place] [address] [place] MONO%, CSF 9 % Low 10-50 [facility] Comment on above: Order Comment: Speci men Type: CEREBROSPINAL FLUIDOrdering Facility: [facility] Address: [address] [place] [address] Performed By: #### L [id number], [id number], 13031-4 ####[facility] LABORATORYCLIA [id number] [place] [address] [place] NEUT%, CSF 89 % High 0-3 [facility] Comment on above: Order Comment: Speci men Type: CEREBROSPINAL FLUIDOrdering Facility: [facility] Address: [address] [place] [address] Performed By: #### L [id number], IAS2976, 11879-0 ####[facility] LABORATORYCLIA [id number] [address] [place] CSF PATHOLOGIST INTERP (LAB REFLEX ORDER-NO BILL)on 07-23-2021 CSF STAFF REVIEW Negative for maligna nt cells. Numerous bacterial organisms present, cocci in pairs and chains. Recommend correlation with CSF culture results. Normal [facility] Comment on above: Order Comment: Speci men Type: CEREBROSPINAL FLUIDOrdering Facility: [facility] Address: [address] [place] [address] Performed By: #### L [id number], CBA4031, 00707-6 ####[facility] LABORATORYCLIA [id number] [address] Pathologist name Reviewed by Amador Stevens MD [facility] Comment on above: Order Comment: Speci men Type: CEREBROSPINAL FLUIDOrdering Facility: [facility] Address: [address] [place] [address] Performed By: #### L SZ5973, YMV7261, 23952-0 ####[facility]ORATORYCLIA [id number] [address] [place] CT BRAIN WO IVCONon 07-24-[address] BRAIN WO IVCON Normal [facility] Cell count panel (CSF)on Clarity (CSF) Clear Normal Clear [facility] Comment on above: Order Comment: Speci men Type: CEREBROSPINAL FLUIDOrdering Facility: [facility] Address: [address] [place] [address] Performed By: #### L [id number], URA0332, 78219-4 ####[facility] LABORATORYCLIA [id number] [address] [place] Clarity (Unsp spec) Not Indicated Normal Clear [facility] Comment on above: Order Comment: Speci men Type: CEREBROSPINAL FLUIDOrdering Facility: [facility] Address: [address] [address] Performed By: #### L [id number], [id number], 33694-2 ####[facility] LABORATORYCLIA [id number] [address] Color (CSF) Colorless Normal Colorless [facility] Comment on above: Order Comment: Speci men Type: CEREBROSPINAL FLUIDOrdering Facility: [facility] Address: [address] [place] [address] Performed By: #### L [id number], DMY7815, 14060-0 ####[facility] LABORATORYCLIA [id number] [address] Color (Spun CSF) Not Indicated Normal Colorless [facility] Comment on above: Order Comment: Speci men Type: CEREBROSPINAL FLUIDOrdering Facility: [facility] Address: [address] [place] [address] Performed By: #### L [id number], BYH0114, 35275-1 ####[facility] LABORATORYCLIA [id number] [address] CSF [employer] Normal [facility] Comment on above: Order Comment: Speci men Type: CEREBROSPINAL FLUIDOrdering Facility: [facility] Address: [address] [place] [address] Performed By: #### L [id number], AON3514, 38260-4 ####[facility]ORYCLIA [id number] [address] RBC Manual cnt (CSF) [#/Vol] 7 cells/uL High 0-5 [facility] Comment on above: Order Comment: Speci men Type: CEREBROSPINAL FLUIDOrdering Facility: [facility] Address: [address] [place] [address] Performed By: #### L [id number], [id number], 07408-2 ####[facility]ORYCLIA [id number] [address] [place] WBC Manual cnt (CSF) [#/Vol] 193 cells/uL High 0-5 [facility] Comment on above: Order Comment: Speci men Type: CEREBROSPINAL FLUIDOrdering Facility: [facility] Address: [address] [place] [address] Performed By: #### L SE0282, DZF8489, 08840-9 ####[facility] LABORATORYCLIA [id number] [address] Glucose [facility] Glucose (CSF) [Mass/Vol] 81 mg/dL High 40-70 [facility] Comment on above: Order Comment: Speci men Type: CEREBROSPINAL FLUIDOrdering Facility: [facility] Address: [address] [place] [address] Result Comment: Lumb ar CSF glucose values of healthy patients are approximately 60% of the plasma values and must always be compared with a concurrently measured plasma value for adequate clinical interpretation.References: 1. Glucose HK (GLUC3) [package insert V 12.0 Cymraes]. [employer], [place], [place]. September 2015. 2. Michelle Moore, Loki, H. (2015). Chapter 7: Glucose and Lactate. Marianela Rothman.(eds.), Cerebrospinal Fluid in Clinical Neurology. Saunders: [employer]. Performed By: #### 2 342-4, 2880-3 ####[facility] LABORATORYCLIA [id number] [place] [address] [place] NURSING PROGon 07-23-2021 NURSING PROG Normal [facility] NURSING PROG Normal [facility] Prot [facility]2021 Protein (CSF) [Mass/Vol] 68 mg/dL High 15-45 [facility] Comment on above: Order Comment: Speci men Type: CEREBROSPINAL FLUIDOrdering Facility: [facility] Address: [address] [place] [address] Performed By: #### 2 342-4, 2880-3 ####[facility] LABORATORYCLIA [id number] [address] Urinalysis complete panel (U )on 07-23-2021 Bilirubin Ql (U) Negative Normal Negative [facility] Comment on above: Order Comment: Speci men Type: URINE SPECIMENOrdering Facility: [facility] Address: [address] [place] [address] Performed By: #### 2 4356-8 ####[facility]ORATORYCLIA [id number] [address] [place] Clarity (Unsp spec) Clear Normal Clear [facility] Comment on above: Order Comment: Speci men Type: URINE SPECIMENOrdering Facility: [facility] Address: [address] [place] [address] Performed By: #### 2 4356-8 ####[facility] LABORATORYCLIA [id number] [address] Color (U) Light Yellow Normal yellow [facility] Comment on above: Order Comment: Speci men Type: URINE SPECIMENOrdering Facility: [facility] Address: [address] [place] [address] Performed By: #### 2 4356-8 ####[facility]ORATORYCLIA [id number] [address] Glucose Test strip (U) [Mass/Vol] Negative Normal Negative [facility] Comment on above: Order Comment: Speci men Type: URINE SPECIMENOrdering Facility: [facility] Address: [address] [place] [address] Performed By: #### 2 4356-8 ####[facility] LABORATORYCLIA [id number] [address] STATES [facility] Hemoglobin Ql (U) Negative Normal Negative [facility] Comment on above: Order Comment: Speci men Type: URINE SPECIMENOrdering Facility: [facility] Address: [address] [place] [address] Performed By: #### 2 4356-8 ####[facility] LABORATORYCLIA [id number] [address] Ketones Ql (U) Negative Normal Negative [facility] Comment on above: Order Comment: Speci men Type: URINE SPECIMENOrdering Facility: [facility] Address: [address] [place] [address] Performed By: #### 2 4356-8 ####[facility] LABORATORYCLIA [id number] [address] Leukocyte esterase Test strip Ql (U) Negative Normal Negative [facility] Comment on above: Order Comment: Speci men Type: URINE SPECIMENOrdering Facility: [facility] Address: [address] [place] [address] Performed By: #### 2 4356-8 ####[facility] LABORATORYCLIA [id number] [address] Nitrite Ql (U) Negative Normal Negative [facility] Comment on above: Order Comment: Speci men Type: URINE SPECIMENOrdering Facility: [facility] Address: [address] [place] [address] Performed By: #### 2 4356-8 ####[facility] LABORATORYCLIA [id number] [address] pH (U) 6.0 [pH] Normal 5.0-8.0 [facility] Comment on above: Order Comment: Speci men Type: URINE SPECIMENOrdering Facility: [facility] Address: [address] [place] [address] Performed By: #### 2 4356-8 ####[facility] LABORATORYCLIA [id number] [address] Protein (U) [Mass/Vol] 1+ Abnormal Negative [facility] Comment on above: Order Comment: Speci men Type: URINE SPECIMENOrdering Facility: [facility] Address: [address] [place] [address] Performed By: #### 2 4356-8 ####[facility] LABORATORYCLIA [id number] [place] [address] [place] RBC LM.HPF (Urine sed) [#/Area] 0-3 /HPF Normal 0-3 /HPF [facility] Comment on above: Order Comment: Speci men Type: URINE SPECIMENOrdering Facility: [facility] Address: [address] [place] [address] Performed By: #### 2 4356-8 ####[facility] LABORATORYCLIA [id number] [address] [place] Specific gravity (U) [Rel density] 1.018 Normal 1.005-1.030 [facility] Comment on above: Order Comment: Speci men Type: URINE SPECIMENOrdering Facility: [facility] Address: [address] [place] [address] Performed By: #### 2 4356-8 ####[facility] LABORATORYCLIA [id number] [address] STATES [facility] Urobilinogen Ql (U) Normal Normal Negative [facility] Comment on above: Order Comment: Speci men Type: URINE SPECIMENOrdering Facility: [facility] Address: [address] [place] [address] Performed By: #### 2 4356-8 ####[facility] LABORATORYCLIA [id number] [address] WBC LM.HPF (Urine sed) [#/Area] 0-5 /HPF Normal 0-5 /HPF [facility] Comment on above: Order Comment: Speci men Type: URINE SPECIMENOrdering Facility: [facility] Address: [address] [place] [address] Performed By: #### 2 4356-8 ####[facility] LABORATORYCLIA [id number] [address] [place] Vancomycin random [Mass/Vol] on 07-23-2021 Vancomycin [Mass/Vol] 12.9 ug/mL Normal 10.0-20.0 [facility] Comment on above: Order Comment: Speci men Type: BLOOD SPECIMENOrdering Facility: [facility] Address: [address] [place], [place] [address] Result Comment: Refe rence ranges and high/low indicator flags are provided as general guidelines only. The treating physician must determine appropriate target levels/dosing based on the specific clinical situation. Performed By: #### 4 091-5 ####[facility] LABORATORYCLIA [id number] [address] XR CHEST 1V FRONTALon 2021 XR CHEST 1V FRONTAL Normal [facility] XR CHEST 1V FRONTAL Normal [facility] aPTT PPPon 07-23-2021 aPTT Coag (PPP) [Time] 32.3 s Normal 23.0-32.4 [facility] Comment on above: Order Comment: Speci men Type: BLOOD SPECIMENOrdering Facility: [facility] Address: [address] [place] [address] Performed By: #### 1 4979-9 ####[facility] LABORATORYCLIA [id number] [address] aPTT Coag (PPP) [Time] 57.9 s High 23.0-32.4 [facility] Comment on above: Order Comment: Speci men Type: BLOOD SPECIMENOrdering Facility: [facility] Address: [address] [place] [address] Performed By: #### 1 4979-9 ####[facility]PITALCLIA [id number] aPTT Coag (PPP) [Time] 46.3 s High 23.0-32.4 [facility] Comment on above: Order Comment: Speci men Type: BLOOD SPECIMENOrdering Facility: [facility] Address: [address] [place] [address] Performed By: #### 1 4979-9 ####[facility] LABORATORYCLIA [id number] [address] [place] Basic metabolic 2000 panelon 07-22-2021 Anion gap [Moles/Vol] 8 mmol/L Low 9-18 [facility] Comment on above: Order Comment: Speci men Type: BLOOD SPECIMENOrdering Facility: [facility] Address: [address] [place] [address] Performed By: #### 2 4321-2 ####[facility] LABORATORYCLIA [id number] [address] [place] Calcium [Mass/Vol] 9.5 mg/dL Normal 8.5-10.2 [facility] Comment on above: Order Comment: Speci men Type: BLOOD SPECIMENOrdering Facility: [facility] Address: [address] [place] [address] Performed By: #### 2 4321-2 ####[facility] LABORATORYCLIA [id number] [place] [address] [place] Chloride [Moles/Vol] 105 mmol/L Normal 97-105 [facility] Comment on above: Order Comment: Speci men Type: BLOOD SPECIMENOrdering Facility: [facility] Address: [address] [place] [address] Performed By: #### 2 4321-2 ####[facility] LABORATORYCLIA [id number] [place] [address] [place] CO2 [Moles/Vol] 32 mmol/L High 22-30 [facility] Comment on above: Order Comment: Speci men Type: BLOOD SPECIMENOrdering Facility: [facility] Address: [address] [place] [address] Performed By: #### 2 4321-2 ####[facility] LABORATORYCLIA [id number] [address] [place] Creatinine [Mass/Vol] 0.75 mg/dL Normal 0.73-1.22 [facility] Comment on above: Order Comment: Speci men Type: BLOOD SPECIMENOrdering Facility: [facility] Address: [address] [place] [address] Performed By: #### 2 4321-2 ####[facility] LABORATORYCLIA [id number] [address] [place] ESTIMATED GLOMERULAR FILTRATION RATE 98 mL/min/1.73m??? Normal >=60 [facility] Comment on above: Order Comment: Shira feldman Type: BLOOD SPECIMENOrdering Facility: [facility] Address: [address] [place] [address] Result Comment: Luzmaria mated Glomerular Filtration Rate [...] By: #### 2 4321-2 ####[facility] LABORATORYCLIA [id number] [place] [address] [place] Glucose [Mass/Vol] 128 mg/dL High 74-99 [facility] Comment on above: Order Comment: Shira feldman Type: BLOOD SPECIMENOrdering Facility: [facility] Address: [address] [place] [address] Result Comment: The [place] Diabetes Association (ADA) provides guidance for cutoff [...] Standards of Medical Care in Diabetes 2016, [place] Diabetes Association. Diabetes Care. 2016.39(Suppl 1). Performed By: #### 2 4321-2 ####[facility] LABORATORYCLIA [id number] [place] [address] [place] Potassium [Moles/Vol] 3.7 mmol/L Normal 3.7-5.1 [facility] Comment on above: Order Comment: Shira feldman Type: BLOOD SPECIMENOrdering Facility: [facility] Address: [address] [address] Performed By: #### 2 4321-2 ####[facility] LABORATORYCLIA [id number] [address] [place] Sodium [Moles/Vol] 145 mmol/L High 136-144 [facility] Comment on above: Order Comment: Speci men Type: BLOOD SPECIMENOrdering Facility: [facility] Address: [address] [place] [address] Performed By: #### 2 4321-2 ####[facility] LABORATORYCLIA [id number] [address] [place] Urea nitrogen [Mass/Vol] 39 mg/dL High 9-24 [facility] Comment on above: Order Comment: Speci men Type: BLOOD SPECIMENOrdering Facility: [facility] Address: [address] [place] [address] Performed By: #### 2 4321-2 ####[facility] LABORATORYCLIA [id number] [address] [place] CASE MANAGEMon 07-22-2021 CASE MANAGEM Normal [facility] CBC W Auto Differential pane l (Bld)on 07-22-2021 Basophils (Bld) [#/Vol] 0.06 10*3/uL Normal <0.11 [facility] Comment on above: Order Comment: Speci men Type: BLOOD SPECIMENOrdering Facility: [facility] Address: [address] [place] [address] Performed By: #### 5 7021-8 ####[facility] LABORATORYCLIA [id number] [address] STATES [facility] Basophils/100 WBC (Bld) 0.5 % Normal [facility] Comment on above: Order Comment: Speci men Type: BLOOD SPECIMENOrdering Facility: [facility] Address: [address] [place] [address] Performed By: #### 5 7021-8 ####[facility] LABORATORYCLIA [id number] [place] [address] [place] Differential cell count method Nom (Bld) Auto Normal [facility] Comment on above: Order Comment: Speci men Type: BLOOD SPECIMENOrdering Facility: [facility] Address: [address] [place] [address] Performed By: #### 5 7021-8 ####[facility] LABORATORYCLIA [id number] [address] [place] Eosinophils (Bld) [#/Vol] 0.44 10*3/uL Normal <0.46 [facility] Comment on above: Order Comment: Speci men Type: BLOOD SPECIMENOrdering Facility: [facility] Address: [address] [place] [address] Performed By: #### 5 7021-8 ####[facility] LABORATORYCLIA [id number] [address] Eosinophils/100 WBC (Bld) 3.9 % Normal [facility] Comment on above: Order Comment: Speci men Type: BLOOD SPECIMENOrdering Facility: [facility] Address: [address] [place] [address] Performed By: #### 5 7021-8 ####[facility] LABORATORYCLIA [id number] [address] Erythrocyte distribution width (RBC) [Ratio] 17.0 % High 11.5-15.0 [facility] Comment on above: Order Comment: Speci men Type: BLOOD SPECIMENOrdering Facility: [facility] Address: [address] [place] [address] Performed By: #### 5 7021-8 ####[facility] LABORATORYCLIA [id number] [address] Hematocrit (Bld) [Volume fraction] 32.0 % Low 39.0-51.0 [facility] Comment on above: Order Comment: Speci men Type: BLOOD SPECIMENOrdering Facility: [facility] Address: [address] [place] [address] Performed By: #### 5 7021-8 ####[facility]ORATORYCLIA [id number] [address] OF [facility] Hemoglobin (Bld) [Mass/Vol] 9.3 g/dL Low 13.0-17.0 [facility] Comment on above: Order Comment: Speci men Type: BLOOD SPECIMENOrdering Facility: [facility] Address: [address] [place] [address] Performed By: #### 5 7021-8 ####[facility] LABORATORYCLIA [id number] [address] IMMATURE GRAN % 0.5 % Normal [facility] Comment on above: Order Comment: Speci men Type: BLOOD SPECIMENOrdering Facility: [facility] Address: [address] [place] [address] Performed By: #### 5 7021-8 ####[facility] LABORATORYCLIA [id number] [address] IMMATURE GRAN ABS 0.06 k/uL Normal <0.10 [facility] Comment on above: Order Comment: Speci men Type: BLOOD SPECIMENOrdering Facility: [facility] Address: [address] [place] [address] Performed By: #### 5 7021-8 ####[facility] LABORATORYCLIA [id number] [address] Lymphocytes (Bld) [#/Vol] 1.83 10*3/uL Normal 1.00-4.00 [facility] Comment on above: Order Comment: Speci men Type: BLOOD SPECIMENOrdering Facility: [facility] Address: [address] [place] [address] Performed By: #### 5 7021-8 ####[facility] LABORATORYCLIA [id number] [address] Lymphocytes/100 WBC (Bld) 16.1 % Normal [facility] Comment on above: Order Comment: Speci men Type: BLOOD SPECIMENOrdering Facility: [facility] Address: [address] [place] [address] Performed By: #### 5 7021-8 ####[facility] LABORATORYCLIA [id number] [address] MCH (RBC) [Entitic mass] 27.0 pg Normal 26.0-34.0 [facility] Comment on above: Order Comment: Speci men Type: BLOOD SPECIMENOrdering Facility: [facility] Address: [address] [place] [address] Performed By: #### 5 7021-8 ####[facility] LABORATORYCLIA [id number] [address] MCHC (RBC) [Mass/Vol] 29.1 g/dL Low 30.5-36.0 [facility] Comment on above: Order Comment: Speci men Type: BLOOD SPECIMENOrdering Facility: [facility] Address: [address] [place] [address] Performed By: #### 5 7021-8 ####[facility] LABORATORYCLIA [id number] [address] MCV (RBC) [Entitic vol] 92.8 fL Normal 80.0-100.0 [facility] Comment on above: Order Comment: Speci men Type: BLOOD SPECIMENOrdering Facility: [facility] Address: [address] [place] [address] Performed By: #### 5 7021-8 ####[facility] LABORATORYCLIA [id number] [address] Monocytes (Bld) [#/Vol] 0.87 10*3/uL High <0.87 [facility] Comment on above: Order Comment: Speci men Type: BLOOD SPECIMENOrdering Facility: [facility] Address: [address] [place] [address] Performed By: #### 5 7021-8 ####[facility] LABORATORYCLIA [id number] [address] Monocytes/100 WBC (Bld) 7.6 % Normal [facility] Comment on above: Order Comment: Speci men Type: BLOOD SPECIMENOrdering Facility: [facility] Address: [address] [address] Performed By: #### 5 7021-8 ####[facility]ORATORYCLIA [id number] [address] [place] Neutrophils (Bld) [#/Vol] 8.12 10*3/uL High 1.45-7.50 [facility] Comment on above: Order Comment: Speci men Type: BLOOD SPECIMENOrdering Facility: [facility] Address: [address] [place] [address] Performed By: #### 5 7021-8 ####[facility] LABORATORYCLIA [id number] [address] [place] Neutrophils/100 WBC (Bld) 71.4 % Normal [facility] Comment on above: Order Comment: Speci men Type: BLOOD SPECIMENOrdering Facility: [facility] Address: [address] [place] [address] Performed By: #### 5 7021-8 ####[facility] LABORATORYCLIA [id number] [address] [place] Nucleated RBC (Bld) [#/Vol] 10*3/uL Normal <0.01 [facility] Comment on above: Order Comment: Speci men Type: BLOOD SPECIMENOrdering Facility: [facility] Address: [address] [place] [address] Performed By: #### 5 7021-8 ####[facility] LABORATORYCLIA [id number] [address] [place] Nucleated RBC/100 WBC (Bld) [Ratio] 0.0 /100 WBC Normal [facility] Comment on above: Order Comment: Speci men Type: BLOOD SPECIMENOrdering Facility: [facility] Address: [address] [place] [address] Performed By: #### 5 7021-8 ####[facility]ORATORYCLIA [id number] [address] [place] Platelet mean volume (Bld) [Entitic vol] 10.8 fL Normal 9.0-12.7 [facility] Comment on above: Order Comment: Speci men Type: BLOOD SPECIMENOrdering Facility: [facility] Address: [address] [place] [address] Performed By: #### 5 7021-8 ####[facility] LABORATORYCLIA [id number] [place] [address] [place] Platelets (Bld) [#/Vol] 362 10*3/uL Normal 150-400 [facility] Comment on above: Order Comment: Speci men Type: BLOOD SPECIMENOrdering Facility: [facility] Address: [address] [place] [address] Performed By: #### 5 7021-8 ####[facility] LABORATORYCLIA [id number] [place] [address] [place] RBC (Bld) [#/Vol] 3.45 10*6/uL Low 4.20-6.00 [facility] Comment on above: Order Comment: Speci men Type: BLOOD SPECIMENOrdering Facility: [facility] Address: [address] [place] [address] Performed By: #### 5 7021-8 ####[facility] LABORATORYCLIA [id number] [address] [place] WBC (Bld) [#/Vol] 11.38 10*3/uL High 3.70-11.00 [facility] Comment on above: Order Comment: Speci men Type: BLOOD SPECIMENOrdering Facility: [facility] Address: [address] [place] [address] Performed By: #### 5 7021-8 ####[facility] LABORATORYCLIA [id number] [address] [place] Magnesium SerPl-mCncon 07-22 Magnesium [Mass/Vol] 2.3 mg/dL Normal 1.7-2.3 [facility] Comment on above: Order Comment: Speci men Type: BLOOD SPECIMENOrdering Facility: [facility] Address: [address] [place] [address] Performed By: #### 1 9123-9, 2777-1, 05906-8 ####[facility] LABORATORYCLIA [id number] [address] [place] NT-proBNP SerPl-ncon 07-22 Natriuretic peptide.B prohormone N-Terminal [Mass/Vol] 328 pg/mL High <125 [facility] Comment on above: Order Comment: Speci men Type: BLOOD SPECIMENOrdering Facility: [facility] Address: [address] [place] [address] Performed By: #### 1 9123-9, 2777-1, 22938-4 ####[facility] LABORATORYCLIA [id number] [address] [place] NURSING PROGon 07-22-2021 NURSING PROG Normal [facility] NUTRITIONon 07-22-2021 NUTRITION Normal [facility] Phosphate [facility]Pl[facility] Phosphate [Mass/Vol] 3.5 mg/dL Normal 2.7-4.8 [facility] Comment on above: Order Comment: Speci men Type: BLOOD SPECIMENOrdering Facility: [facility] Address: [address] [place] [address] Performed By: #### 1 9123-9, 2777-1, 20664-9 ####[facility] LABORATORYCLIA [id number] [address] [place] THERAPY NTon 07-22-2021 THERAPY NT Normal [facility] THERAPY NT Normal [facility] aPTT PPPon 07-22-2021 aPTT Coag (PPP) [Time] 50.1 s High 23.0-32.4 [facility] Comment on above: Order Comment: Speci men Type: BLOOD SPECIMENOrdering Facility: [facility] Address: [address] [place] [address] Performed By: #### 1 4979-9 ####[facility] LABORATORYCLIA [id number] [place] [address] [place] ALLIED HEALTHon 07-21-2021 ALLIED HEALTH Normal [facility] Bacteria Spec Resp Culton Bacteria identified Respiratory culture Nom (Unsp spec) Abnormal [facility] Comment on above: Performed By: #### 3 2355-0 ####[facility] LABORATORYCLIA [id number] [place] [id number] [place] Basic metabolic 2000 panelon 07-21-2021 Anion gap [Moles/Vol] 9 mmol/L Normal 9-18 [facility] Comment on above: Order Comment: Speci men Type: BLOOD SPECIMENOrdering Facility: [facility] Address: [address] [place] [address] Performed By: #### 1 9123-9, 2777-1, 56694-1 ####[facility] LABORATORYCLIA [id number] [place] [address] [place] Calcium [Mass/Vol] 9.9 mg/dL Normal 8.5-10.2 [facility] Comment on above: Order Comment: Speci men Type: BLOOD SPECIMENOrdering Facility: [facility] Address: [address] [place] [address] Performed By: #### 1 9123-9, 2777-1, 53250-4 ####[facility] LABORATORYCLIA [id number] [place] [address] [place] Chloride [Moles/Vol] 103 mmol/L Normal 97-105 [facility] Comment on above: Order Comment: Speci men Type: BLOOD SPECIMENOrdering Facility: [facility] Address: [address] [place] [address] Performed By: #### 1 9123-9, 27771, 69820-5 ####[facility] LABORATORYCLIA [id number] [place] [address] [place] CO2 [Moles/Vol] 33 mmol/L High 22-30 [facility] Comment on above: Order Comment: Speci men Type: BLOOD SPECIMENOrdering Facility: [facility] Address: [address] [place] [address] Performed By: #### 1 9123-9, 2777-1, 17886-8 ####[facility]ITALIA [id number] [place] [address] [place] Creatinine [Mass/Vol] 0.80 mg/dL Normal 0.73-1.22 [facility] Comment on above: Order Comment: Speci men Type: BLOOD SPECIMENOrdering Facility: [facility] Address: [address] [place] [address] Performed By: #### 1 9123-9, 2777-, 82095-7 ####[facility]PITALIA [id number] [address] [place] ESTIMATED GLOMERULAR FILTRATION RATE 96 mL/min/1.73m??? Normal >=60 [facility] Comment on above: Order Comment: Speci men Type: BLOOD SPECIMENOrdering Facility: [facility] Address: [address] [place] [address] Result Comment: Luzmaria mated Glomerular Filtration Rate [...] GFR. Performed By: #### 1 9123-9, 2777-, 65477-3 ####[facility]PITALIA [id number] [place] [address] [place] Glucose [Mass/Vol] 148 mg/dL High 74-99 [facility] Comment on above: Order Comment: Speci men Type: BLOOD SPECIMENOrdering Facility: [facility] Address: [address] [place] [address] Result Comment: The [place] Diabetes Association (ADA) provides guidance for cutoff [...] Standards of Medical Care in Diabetes 2016, [place] Diabetes Association. Diabetes Care. 2016.39(Suppl 1). Performed By: #### 1 9123-9, 2777-, 98361-9 ####[facility] LABORATORYCLIA [id number] [place] [address] [place] Potassium [Moles/Vol] 4.1 mmol/L Normal 3.7-5.1 [facility] Comment on above: Order Comment: Shira feldman Type: BLOOD SPECIMENOrdering Facility: [facility] Address: [address] [place] [address] Performed By: #### 1 9123-9, 27711-04, 88172-4 ####[facility]PITALCLIA [id number] [place] [address] [place] Sodium [Moles/Vol] 145 mmol/L High 136-144 [facility] Comment on above: Order Comment: Shira feldman Type: BLOOD SPECIMENOrdering Facility: [facility] Address: [address] [place] [address] Performed By: #### 1 9123-9, 2777, 68639-2 ####[facility] LABORATORYCLIA [id number] [place] [address] [place] Urea nitrogen [Mass/Vol] 40 mg/dL High 9-24 [facility] Comment on above: Order Comment: Shira feldman Type: BLOOD SPECIMENOrdering Facility: [facility] Address: [address] [address] Performed By: #### 1 9123-9, 2777, 56596-0 ####[facility] LABORATORYCLIA [id number] [address] [place] CBC W Auto Differential pane l (Bld)on 07-21-2021 Basophils (Bld) [#/Vol] 0.06 10*3/uL Normal <0.11 [facility] Comment on above: Order Comment: Speci men Type: BLOOD SPECIMENOrdering Facility: [facility] Address: [address] [place] [address] Performed By: #### 5 7021-8 ####[facility] LABORATORYCLIA [id number] [address] STATES [facility] Basophils/100 WBC (Bld) 0.4 % Normal [facility] Comment on above: Order Comment: Speci men Type: BLOOD SPECIMENOrdering Facility: [facility] Address: [address] [place] [address] Performed By: #### 5 7021-8 ####[facility] LABORATORYCLIA [id number] [address] Differential cell count method Nom (Bld) Auto Normal [facility] Comment on above: Order Comment: Speci men Type: BLOOD SPECIMENOrdering Facility: [facility] Address: [address] [place] [address] Performed By: #### 5 7021-8 ####[facility] LABORATORYCLIA [id number] [address] [place] Eosinophils (Bld) [#/Vol] 0.04 10*3/uL Normal <0.46 [facility] Comment on above: Order Comment: Speci men Type: BLOOD SPECIMENOrdering Facility: [facility] Address: [address] [place] [address] Performed By: #### 5 7021-8 ####[facility] LABORATORYCLIA [id number] [address] Eosinophils/100 WBC (Bld) 0.3 % Normal [facility] Comment on above: Order Comment: Speci men Type: BLOOD SPECIMENOrdering Facility: [facility] Address: [address] [place] [address] Performed By: #### 5 7021-8 ####[facility] LABORATORYCLIA [id number] [address] Erythrocyte distribution width (RBC) [Ratio] 17.0 % High 11.5-15.0 [facility] Comment on above: Order Comment: Speci men Type: BLOOD SPECIMENOrdering Facility: [facility] Address: [address] [place] [address] Performed By: #### 5 7021-8 ####[facility] LABORATORYCLIA [id number] [address] Hematocrit (Bld) [Volume fraction] 33.1 % Low 39.0-51.0 [facility] Comment on above: Order Comment: Speci men Type: BLOOD SPECIMENOrdering Facility: [facility] Address: [address] [place] [address] Performed By: #### 5 7021-8 ####[facility] LABORATORYCLIA [id number] [address] Hemoglobin (Bld) [Mass/Vol] 9.7 g/dL Low 13.0-17.0 [facility] Comment on above: Order Comment: Speci men Type: BLOOD SPECIMENOrdering Facility: [facility] Address: [address] [place] [address] Performed By: #### 5 7021-8 ####[facility] LABORATORYCLIA [id number] [address] IMMATURE GRAN % 0.5 % Normal [facility] Comment on above: Order Comment: Speci men Type: BLOOD SPECIMENOrdering Facility: [facility] Address: [address] [place] [address] Performed By: #### 5 7021-8 ####[facility] LABORATORYCLIA [id number] [address] IMMATURE GRAN ABS 0.07 k/uL Normal <0.10 [facility] Comment on above: Order Comment: Speci men Type: BLOOD SPECIMENOrdering Facility: [facility] Address: [address] [place] [address] Performed By: #### 5 7021-8 ####[facility] LABORATORYCLIA [id number] [address] Lymphocytes (Bld) [#/Vol] 1.99 10*3/uL Normal 1.00-4.00 [facility] Comment on above: Order Comment: Speci men Type: BLOOD SPECIMENOrdering Facility: [facility] Address: [address] [place] [address] Performed By: #### 5 7021-8 ####[facility] LABORATORYCLIA [id number] [address] Lymphocytes/100 WBC (Bld) 13.4 % Normal [facility] Comment on above: Order Comment: Speci men Type: BLOOD SPECIMENOrdering Facility: [facility] Address: [address] [place] [address] Performed By: #### 5 7021-8 ####[facility] LABORATORYCLIA [id number] [address] MCH (RBC) [Entitic mass] 27.2 pg Normal 26.0-34.0 [facility] Comment on above: Order Comment: Speci men Type: BLOOD SPECIMENOrdering Facility: [facility] Address: [address] [place] [address] Performed By: #### 5 7021-8 ####[facility] LABORATORYCLIA [id number] [address] [place] MCHC (RBC) [Mass/Vol] 29.3 g/dL Low 30.5-36.0 [facility] Comment on above: Order Comment: Speci men Type: BLOOD SPECIMENOrdering Facility: [facility] Address: [address] [place] [address] Performed By: #### 5 7021-8 ####[facility] LABORATORYCLIA [id number] [place] [address] [place] MCV (RBC) [Entitic vol] 92.7 fL Normal 80.0-100.0 [facility] Comment on above: Order Comment: Speci men Type: BLOOD SPECIMENOrdering Facility: [facility] Address: [address] [place] [address] Performed By: #### 5 7021-8 ####[facility]ORATORYCLIA [id number] [place] [address] [place] Monocytes (Bld) [#/Vol] 1.10 10*3/uL High <0.87 [facility] Comment on above: Order Comment: Speci men Type: BLOOD SPECIMENOrdering Facility: [facility] Address: [address] [place] [address] Performed By: #### 5 7021-8 ####[facility] LABORATORYCLIA [id number] [address] STATES [facility] Monocytes/100 WBC (Bld) 7.4 % Normal [facility] Comment on above: Order Comment: Speci men Type: BLOOD SPECIMENOrdering Facility: [facility] Address: [address] [place] [address] Performed By: #### 5 7021-8 ####[facility] LABORATORYCLIA [id number] [place] [address] [place] Neutrophils (Bld) [#/Vol] 11.61 10*3/uL High 1.45-7.50 [facility] Comment on above: Order Comment: Speci men Type: BLOOD SPECIMENOrdering Facility: [facility] Address: [address] [place] [address] Performed By: #### 5 7021-8 ####[facility] LABORATORYCLIA [id number] [address] [place] Neutrophils/100 WBC (Bld) 78.0 % Normal [facility] Comment on above: Order Comment: Speci men Type: BLOOD SPECIMENOrdering Facility: [facility] Address: [address] [place] [address] Performed By: #### 5 7021-8 ####[facility] LABORATORYCLIA [id number] [address] [place] Nucleated RBC (Bld) [#/Vol] 10*3/uL Normal <0.01 [facility] Comment on above: Order Comment: Speci men Type: BLOOD SPECIMENOrdering Facility: [facility] Address: [address] [place] [address] Performed By: #### 5 7021-8 ####[facility] LABORATORYCLIA [id number] [address] [place] Nucleated RBC/100 WBC (Bld) [Ratio] 0.0 /100 WBC Normal [facility] Comment on above: Order Comment: Speci men Type: BLOOD SPECIMENOrdering Facility: [facility] Address: [address] [place] [address] Performed By: #### 5 7021-8 ####[facility] LABORATORYCLIA [id number] [address] Platelet mean volume (Bld) [Entitic vol] 10.4 fL Normal 9.0-12.7 [facility] Comment on above: Order Comment: Speci men Type: BLOOD SPECIMENOrdering Facility: [facility] Address: [address] [place] [address] Performed By: #### 5 7021-8 ####[facility] LABORATORYCLIA [id number] [address] [place] Platelets (Bld) [#/Vol] 396 10*3/uL Normal 150-400 [facility] Comment on above: Order Comment: Speci men Type: BLOOD SPECIMENOrdering Facility: [facility] Address: [address] [place] [address] Performed By: #### 5 7021-8 ####[facility] LABORATORYCLIA [id number] [address] [place] RBC (Bld) [#/Vol] 3.57 10*6/uL Low 4.20-6.00 [facility] Comment on above: Order Comment: Speci men Type: BLOOD SPECIMENOrdering Facility: [facility] Address: [address] [place] [address] Performed By: #### 5 7021-8 ####[facility] LABORATORYCLIA [id number] [address] [place] WBC (Bld) [#/Vol] 14.87 10*3/uL High 3.70-11.00 [facility] Comment on above: Order Comment: Speci men Type: BLOOD SPECIMENOrdering Facility: [facility] Address: [address] [place] [address] Performed By: #### 5 7021-8 ####[facility] LABORATORYCLIA [id number] [address] Gas and Carbon monoxide pane l (BldV)on 07-21-2021 Base excess Calc (BldV) [Moles/Vol] 7 mmol/L High 0-2 [facility] Comment on above: Order Comment: Speci men Type: VENOUS BLOOD SPECIMENOrdering Facility: [facility] Address: [address] [place] [address] Performed By: #### 2 4344-4 ####[facility] LABORATORYCLIA [id number] [address] STATES OF [facility] Body temperature 98.6 [degF] Normal [facility] Comment on above: Order Comment: Speci men Type: VENOUS BLOOD SPECIMENOrdering Facility: [facility] Address: [address] [place] [address] Performed By: #### 2 4344-4 ####[facility] LABORATORYCLIA [id number] [address] STATES OF [facility] CALCIUM IONIZED, PH CORRECTED 1.21 mmol/L Normal 1.08-1.30 [facility] Comment on above: Order Comment: Speci men Type: VENOUS BLOOD SPECIMENOrdering Facility: [facility] Address: [address] [place] [address] Performed By: #### 2 4344-4 ####[facility]PITALCLIA [id number] [address] [place] Calcium.ionized (BldV) [Mass/Vol] 1.23 mmol/L Normal 1.08-1.30 [facility] Comment on above: Order Comment: Speci men Type: VENOUS BLOOD SPECIMENOrdering Facility: [facility] Address: [address] [place] [address] Performed By: #### 2 4344-4 ####[facility] LABORATORYCLIA [id number] [address] [place] Carboxyhemoglobin (BldV) [Mass fraction] 2.3 % High 0.0-2.0 [facility] Comment on above: Order Comment: Speci men Type: VENOUS BLOOD SPECIMENOrdering Facility: [facility] Address: [address] [place] [address] Result Comment: Carb oxyhemoglobin Reference Range for Smokers: 2.0-8.0% Performed By: #### 2 4344-4 ####[facility] LABORATORYCLIA [id number] [address] [place] CO2 (BldV) [Partial pressure] 58 mm[Hg] High 42-55 [facility] Comment on above: Order Comment: Speci men Type: VENOUS BLOOD SPECIMENOrdering Facility: [facility] Address: [address] [place] [address] Performed By: #### 2 4344-4 ####[facility] LABORATORYCLIA [id number] [address] [place] CO2 [Moles/Vol] 31 mmol/L High 25-29 [facility] Comment on above: Order Comment: Speci men Type: VENOUS BLOOD SPECIMENOrdering Facility: [facility] Address: [address] [place] [address] Performed By: #### 2 4344-4 ####[facility] LABORATORYCLIA [id number] [place] [address] [place] Glucose [Mass/Vol] 146 mg/dL High 60-105 [facility] Comment on above: Order Comment: Speci men Type: VENOUS BLOOD SPECIMENOrdering Facility: [facility] Address: [address] [address] Performed By: #### 2 4344-4 ####[facility] LABORATORYCLIA [id number] [address] [place] HCO3 (Bld) [Moles/Vol] 33 mmol/L High 24-28 [facility] Comment on above: Order Comment: Speci men Type: VENOUS BLOOD SPECIMENOrdering Facility: [facility] Address: [address] [place] [address] Performed By: #### 2 4344-4 ####[facility] LABORATORYCLIA [id number] [address] [place] Hematocrit (Bld) [Volume fraction] 30.1 % Low 39.0-51.0 [facility] Comment on above: Order Comment: Speci men Type: VENOUS BLOOD SPECIMENOrdering Facility: [facility] Address: [address] [address] Performed By: #### 2 4344-4 ####[facility] LABORATORYCLIA [id number] [address] [place] Hemoglobin (Bld) [Mass/Vol] 9.7 g/dL Low 13.0-17.0 [facility] Comment on above: Order Comment: Speci men Type: VENOUS BLOOD SPECIMENOrdering Facility: [facility] Address: [address] [address] Performed By: #### 2 4344-4 ####[facility] LABORATORYCLIA [id number] [address] [place] Methemoglobin (Bld) [Mass fraction] % Normal 0.0-1.5 [facility] Comment on above: Order Comment: Speci men Type: VENOUS BLOOD SPECIMENOrdering Facility: [facility] Address: [address] [address] Performed By: #### 2 4344-4 ####[facility]ORATORYCLIA [id number] [address] [place] O2 THERAPY NC = Nasal Cannula Normal [facility] Comment on above: Order Comment: Speci men Type: VENOUS BLOOD SPECIMENOrdering Facility: [facility] Address: [address] [place] [address] Performed By: #### 2 4344-4 ####[facility] LABORATORYCLIA [id number] [address] [place] Oxygen (BldV) [Partial pressure] 64 mm[Hg] High 35-45 [facility] Comment on above: Order Comment: Speci men Type: VENOUS BLOOD SPECIMENOrdering Facility: [facility] Address: [address] [place] [address] Performed By: #### 2 4344-4 ####[facility] LABORATORYCLIA [id number] [address] [place] Oxygen saturation in Blood 90 % High 60-85 [facility] Comment on above: Order Comment: Speci men Type: VENOUS BLOOD SPECIMENOrdering Facility: [facility] Address: [address] [place] [address] Performed By: #### 2 4344-4 ####[facility] LABORATORYCLIA [id number] [address] [place] Oxyhemoglobin (BldV) [Mass fraction] 87 % High 60-85 [facility] Comment on above: Order Comment: Speci men Type: VENOUS BLOOD SPECIMENOrdering Facility: [facility] Address: [address] [place] [address] Performed By: #### 2 4344-4 ####[facility] LABORATORYCLIA [id number] [place] [address] [place] pH (BldV) 7.38 [pH] Normal 7.32-7.42 [facility] Comment on above: Order Comment: Speci men Type: VENOUS BLOOD SPECIMENOrdering Facility: [facility] Address: [address] [place] [address] Performed By: #### 2 4344-4 ####[facility] LABORATORYCLIA [id number] [address] [place] Potassium [Moles/Vol] 3.8 mmol/L Normal 3.5-5.0 [facility] Comment on above: Order Comment: Speci men Type: VENOUS BLOOD SPECIMENOrdering Facility: [facility] Address: [address] [place] [address] Performed By: #### 2 4344-4 ####[facility] LABORATORYCLIA [id number] [address] [place] Sodium [Moles/Vol] 145 mmol/L High 136-144 [facility] Comment on above: Order Comment: Speci men Type: VENOUS BLOOD SPECIMENOrdering Facility: [facility] Address: [address] [place] [address] Performed By: #### 2 4344-4 ####[facility] LABORATORYCLIA [id number] [address] [place] Base excess Calc (BldV) [Moles/Vol] 8 mmol/L High 0-2 [facility] Comment on above: Order Comment: Speci men Type: VENOUS BLOOD SPECIMENOrdering Facility: [facility] Address: [address] [place] [address] Performed By: #### 2 4344-4 ####[facility] LABORATORYCLIA [id number] [address] [place] Body temperature 100.22 [degF] Normal [facility] Comment on above: Order Comment: Speci men Type: VENOUS BLOOD SPECIMENOrdering Facility: [facility] Address: [address] [place] [address] Performed By: #### 2 4344-4 ####[facility] LABORATORYCLIA [id number] [address] CALCIUM IONIZED, PH CORRECTED 1.25 mmol/L Normal 1.08-1.30 [facility] Comment on above: Order Comment: Speci men Type: VENOUS BLOOD SPECIMENOrdering Facility: [facility] Address: [address] [place] [address] Performed By: #### 2 4344-4 ####[facility] LABORATORYCLIA [id number] [address] [place] Calcium.ionized (BldV) [Mass/Vol] 1.24 mmol/L Normal 1.08-1.30 [facility] Comment on above: Order Comment: Speci men Type: VENOUS BLOOD SPECIMENOrdering Facility: [facility] Address: [address] [place] [address] Performed By: #### 2 4344-4 ####[facility] LABORATORYCLIA [id number] [address] [place] Carboxyhemoglobin (BldV) [Mass fraction] 2.5 % High 0.0-2.0 [facility] Comment on above: Order Comment: Speci men Type: VENOUS BLOOD SPECIMENOrdering Facility: [facility] Address: [address] [place] [address] Result Comment: Carb oxyhemoglobin Reference Range for Smokers: 2.0-8.0% Performed By: #### 2 4344-4 ####[facility] LABORATORYCLIA [id number] [address] [place] CO2 (BldV) [Partial pressure] 53 mm[Hg] Normal 42-55 [facility] Comment on above: Order Comment: Speci men Type: VENOUS BLOOD SPECIMENOrdering Facility: [facility] Address: [address] [place] [address] Performed By: #### 2 4344-4 ####[facility] LABORATORYCLIA [id number] [address] [place] CO2 [Moles/Vol] 31 mmol/L High 25-29 [facility] Comment on above: Order Comment: Speci men Type: VENOUS BLOOD SPECIMENOrdering Facility: [facility] Address: [address] [place] [address] Performed By: #### 2 4344-4 ####[facility]ATORYCLIA [id number] [address] [place] CO2 adjusted to patient's actual temperature (BldV) [Partial pressure] 56 mmHg High 42-55 [facility] Comment on above: Order Comment: Speci men Type: VENOUS BLOOD SPECIMENOrdering Facility: [facility] Address: [address] [address] Performed By: #### 2 4344-4 ####[facility] LABORATORYCLIA [id number] [place] [address] [place] Glucose [Mass/Vol] 131 mg/dL High 60-105 [facility] Comment on above: Order Comment: Speci men Type: VENOUS BLOOD SPECIMENOrdering Facility: [facility] Address: [address] [place] [address] Performed By: #### 2 4344-4 ####[facility] LABORATORYCLIA [id number] [address] [place] HCO3 (Bld) [Moles/Vol] 33 mmol/L High 24-28 [facility] Comment on above: Order Comment: Speci men Type: VENOUS BLOOD SPECIMENOrdering Facility: [facility] Address: [address] [place] [address] Performed By: #### 2 4344-4 ####[facility] LABORATORYCLIA [id number] [address] [place] Hematocrit (Bld) [Volume fraction] 30.8 % Low 39.0-51.0 [facility] Comment on above: Order Comment: Speci men Type: VENOUS BLOOD SPECIMENOrdering Facility: [facility] Address: [address] [address] Performed By: #### 2 4344-4 ####[facility] LABORATORYCLIA [id number] [address] [place] Hemoglobin (Bld) [Mass/Vol] 10.0 g/dL Low 13.0-17.0 [facility] Comment on above: Order Comment: Speci men Type: VENOUS BLOOD SPECIMENOrdering Facility: [facility] Address: [address] [address] Performed By: #### 2 4344-4 ####[facility] LABORATORYCLIA [id number] [address] Methemoglobin (Bld) [Mass fraction] % Normal 0.0-1.5 [facility] Comment on above: Order Comment: Speci men Type: VENOUS BLOOD SPECIMENOrdering Facility: [facility] Address: [address] [place] [address] Performed By: #### 2 4344-4 ####[facility] LABORATORYCLIA [id number] [address] O2 THERAPY NC = Nasal Cannula Normal [facility] Comment on above: Order Comment: Speci men Type: VENOUS BLOOD SPECIMENOrdering Facility: [facility] Address: [address] [place] [address] Performed By: #### 2 4344-4 ####[facility] LABORATORYCLIA [id number] [address] [place] Oxygen (BldV) [Partial pressure] 58 mm[Hg] High 35-45 [facility] Comment on above: Order Comment: Speci men Type: VENOUS BLOOD SPECIMENOrdering Facility: [facility] Address: [address] [place] [address] Performed By: #### 2 4344-4 ####[facility] LABORATORYCLIA [id number] [address] Oxygen adjusted to patient's actual temperature (BldV) [Partial pressure] 61 mmHg High 35-45 [facility] Comment on above: Order Comment: Speci men Type: VENOUS BLOOD SPECIMENOrdering Facility: [facility] Address: [address] [address] Performed By: #### 2 4344-4 ####[facility]ORATORYCLIA [id number] [address] [place] Oxygen saturation in Blood 88 % High 60-85 [facility] Comment on above: Order Comment: Speci men Type: VENOUS BLOOD SPECIMENOrdering Facility: [facility] Address: [address] [place] [address] Performed By: #### 2 4344-4 ####[facility] LABORATORYCLIA [id number] [address] Oxyhemoglobin (BldV) [Mass fraction] 85 % Normal 60-85 [facility] Comment on above: Order Comment: Speci men Type: VENOUS BLOOD SPECIMENOrdering Facility: [facility] Address: [address] [place] [address] Performed By: #### 2 4344-4 ####[facility] LABORATORYCLIA [id number] [address] [place] pH (BldV) 7.41 [pH] Normal 7.32-7.42 [facility] Comment on above: Order Comment: Speci men Type: VENOUS BLOOD SPECIMENOrdering Facility: [facility] Address: [address] [place] [address] Performed By: #### 2 4344-4 ####[facility] LABORATORYCLIA [id number] [address] pH adjusted to patient's actual temperature (BldV) 7.40 Normal 7.32-7.42 [facility] Comment on above: Order Comment: Speci men Type: VENOUS BLOOD SPECIMENOrdering Facility: [facility] Address: [address] [place] [address] Performed By: #### 2 4344-4 ####[facility] LABORATORYCLIA [id number] [address] [place] Potassium [Moles/Vol] 4.0 mmol/L Normal 3.5-5.0 [facility] Comment on above: Order Comment: Speci men Type: VENOUS BLOOD SPECIMENOrdering Facility: [facility] Address: [address] [place] [address] Performed By: #### 2 4344-4 ####[facility] LABORATORYCLIA [id number] [address] [place] Sodium [Moles/Vol] 146 mmol/L High 136-144 [facility] Comment on above: Order Comment: Speci men Type: VENOUS BLOOD SPECIMENOrdering Facility: [facility] Address: [address] [place] [address] Performed By: #### 2 4344-4 ####[facility] LABORATORYCLIA [id number] [address] [place] Magnesium SerPl-mCncon 07-21 Magnesium [Mass/Vol] 2.5 mg/dL High 1.7-2.3 [facility] Comment on above: Order Comment: Speci men Type: BLOOD SPECIMENOrdering Facility: [facility] Address: [address] [place] [address] Performed By: #### 1 9123-9, 2777-1, 19547-5 ####[facility] LABORATORYCLIA [id number] [address] [place] NURSING PROGon 07-21-2021 NURSING PROG Normal [facility] Phosphate SerPl-mCncon 07-21 Phosphate [Mass/Vol] 3.7 mg/dL Normal 2.7-4.8 [facility] Comment on above: Order Comment: Speci men Type: BLOOD SPECIMENOrdering Facility: [facility] Address: [address] [place] [address] Performed By: #### 1 9123-9, 2777-1, 71254-9 ####[facility] LABORATORYCLIA [id number] [address] [place] THERAPY NTon 07-21-2021 THERAPY NT Normal [facility] XR CHEST 1V FRONTALon 2021 XR CHEST 1V FRONTAL Normal [facility] aPTT PPPon 07-21-2021 aPTT Coag (PPP) [Time] 53.0 s High 23.0-32.4 [facility] Comment on above: Order Comment: Speci men Type: BLOOD SPECIMENOrdering Facility: [facility] Address: [address] [place] [address] Performed By: #### 1 4979-9 ####[facility] LABORATORYCLIA [id number] [place] [address] [place] ALLIED HEALTHon 07-20-2021 ALLIED HEALTH Normal [facility] Basic metabolic 2000 panelon 07-20-2021 Anion gap [Moles/Vol] 8 mmol/L Low 9-18 [facility] Comment on above: Order Comment: Speci men Type: BLOOD SPECIMENOrdering Facility: [facility] Address: [address] [place] [address] Performed By: #### 2 4321-2, , 2776-05 ####[facility] LABORATORYCLIA [id number] [place] [address] [place] Calcium [Mass/Vol] 9.7 mg/dL Normal 8.5-10.2 [facility] Comment on above: Order Comment: Speci men Type: BLOOD SPECIMENOrdering Facility: [facility] Address: [address] [place] [address] Performed By: #### 2 4321-2, , 2776-05 ####[facility] LABORATORYCLIA [id number] [place] [address] [place] Chloride [Moles/Vol] 104 mmol/L Normal 97-105 [facility] Comment on above: Order Comment: Speci men Type: BLOOD SPECIMENOrdering Facility: [facility] Address: [address] [place] [address] Performed By: #### 2 4321-2, , 2776- ####[facility] LABORATORYCLIA [id number] [place] [id number] [place] CO2 [Moles/Vol] 34 mmol/L High 22-30 [facility] Comment on above: Order Comment: Speci men Type: BLOOD SPECIMENOrdering Facility: [facility] Address: [address] [place] [address] Performed By: #### 2 4321-2, , 2776- ####[facility]PITALCLIA [id number] [place] [address] [place] Creatinine [Mass/Vol] 0.76 mg/dL Normal 0.73-1.22 [facility] Comment on above: Order Comment: Shira feldman Type: BLOOD SPECIMENOrdering Facility: [facility] Address: [address] [place] [address] Performed By: #### 2 4321-2, , 2776-05 ####[facility]ITALIA [id number] [address] OF [facility] ESTIMATED GLOMERULAR FILTRATION RATE 97 mL/min/1.73m??? Normal >=60 [facility] Comment on above: Order Comment: Shira feldman Type: BLOOD SPECIMENOrdering Facility: [facility] Address: [address] [place] [address] Result Comment: Luzmaria mated Glomerular Filtration Rate [...] #### 2 4321-2, , 2776-05 ####[facility] [id number] [address] [place] Glucose [Mass/Vol] 123 mg/dL High 74-99 [facility] Comment on above: Order Comment: Shira feldman Type: BLOOD SPECIMENOrdering Facility: [facility] Address: [address] [place], [place] [address] Result Comment: The [place] Diabetes Association (ADA) provides guidance for cutoff [...] Standards of Medical Care in Diabetes 2016, [place] Diabetes Association. Diabetes Care. 2016.39(Suppl 1). Performed By: #### 2 4321-2, , 2776-05 ####[facility] LABORATORYCLIA [id number] [place] [address] [place] Potassium [Moles/Vol] 4.4 mmol/L Normal 3.7-5.1 [facility] Comment on above: Order Comment: Speci men Type: BLOOD SPECIMENOrdering Facility: [facility] Address: [address] [place] [address] Performed By: #### 2 4321-2, , 2776-05 ####[facility] LABORATORYCLIA [id number] [address] STATES OF [facility] Sodium [Moles/Vol] 146 mmol/L High 136-144 [facility] Comment on above: Order Comment: Speci men Type: BLOOD SPECIMENOrdering Facility: [facility] Address: [address] [place] [address] Performed By: #### 2 4321-2, , 2776-05 ####[facility] LABORATORYCLIA [id number] [address] [place] Urea nitrogen [Mass/Vol] 38 mg/dL High 9-24 [facility] Comment on above: Order Comment: Speci men Type: BLOOD SPECIMENOrdering Facility: [facility] Address: [address] [place] [address] Performed By: #### 2 4321-2, , 2776-05 ####[facility] LABORATORYCLIA [id number] [address] [place] CASE MANAGEMon 07-20-2021 CASE MANAGEM Normal [facility] CBC W Auto Differential pane l (Bld)on 07-20-2021 Basophils (Bld) [#/Vol] 0.05 10*3/uL Normal <0.11 [facility] Comment on above: Order Comment: Speci men Type: BLOOD SPECIMENOrdering Facility: [facility] Address: [address] [place] [address] Performed By: #### 5 7021-8 ####[facility]ORATORYCLIA [id number] [address] [place] Basophils/100 WBC (Bld) 0.5 % Normal [facility] Comment on above: Order Comment: Speci men Type: BLOOD SPECIMENOrdering Facility: [facility] Address: [address] [place] [address] Performed By: #### 5 7021-8 ####[facility]ORATORYCLIA [id number] [address] [place] Differential cell count method Nom (Bld) Auto Normal [facility] Comment on above: Order Comment: Speci men Type: BLOOD SPECIMENOrdering Facility: [facility] Address: [address] [place] [address] Performed By: #### 5 7021-8 ####[facility]ATORYCLIA [id number] [place] [address] [place] Eosinophils (Bld) [#/Vol] 0.43 10*3/uL Normal <0.46 [facility] Comment on above: Order Comment: Speci men Type: BLOOD SPECIMENOrdering Facility: [facility] Address: [address] [place] [address] Performed By: #### 5 7021-8 ####[facility]ATORYCLIA [id number] [address] [place] Eosinophils/100 WBC (Bld) 4.1 % Normal [facility] Comment on above: Order Comment: Speci men Type: BLOOD SPECIMENOrdering Facility: [facility] Address: [address] [place] [address] Performed By: #### 5 7021-8 ####[facility]ATORYCLIA [id number] [address] Erythrocyte distribution width (RBC) [Ratio] 16.7 % High 11.5-15.0 [facility] Comment on above: Order Comment: Speci men Type: BLOOD SPECIMENOrdering Facility: [facility] Address: [address] [place] [address] Performed By: #### 5 7021-8 ####[facility] LABORATORYCLIA [id number] [address] OF [facility] Hematocrit (Bld) [Volume fraction] 33.0 % Low 39.0-51.0 [facility] Comment on above: Order Comment: Speci men Type: BLOOD SPECIMENOrdering Facility: [facility] Address: [address] [place] [address] Performed By: #### 5 7021-8 ####[facility] LABORATORYCLIA [id number] [address] OF [facility] Hemoglobin (Bld) [Mass/Vol] 9.7 g/dL Low 13.0-17.0 [facility] Comment on above: Order Comment: Speci men Type: BLOOD SPECIMENOrdering Facility: [facility] Address: [address] [place] [address] Performed By: #### 5 7021-8 ####[facility] LABORATORYCLIA [id number] [address] [place] IMMATURE GRAN % 0.4 % Normal [facility] Comment on above: Order Comment: Speci men Type: BLOOD SPECIMENOrdering Facility: [facility] Address: [address] [place] [address] Performed By: #### 5 7021-8 ####[facility] LABORATORYCLIA [id number] [address] IMMATURE GRAN ABS 0.04 k/uL Normal <0.10 [facility] Comment on above: Order Comment: Speci men Type: BLOOD SPECIMENOrdering Facility: [facility] Address: [address] [place] [address] Performed By: #### 5 7021-8 ####[facility] LABORATORYCLIA [id number] [address] [place] [facility] Lymphocytes (Bld) [#/Vol] 1.99 10*3/uL Normal 1.00-4.00 [facility] Comment on above: Order Comment: Speci men Type: BLOOD SPECIMENOrdering Facility: [facility] Address: [address] [place] [address] Performed By: #### 5 7021-8 ####[facility] LABORATORYCLIA [id number] [address] Lymphocytes/100 WBC (Bld) 18.8 % Normal [facility] Comment on above: Order Comment: Speci men Type: BLOOD SPECIMENOrdering Facility: [facility] Address: [address] [place] [address] Performed By: #### 5 7021-8 ####[facility] LABORATORYCLIA [id number] [address] MCH (RBC) [Entitic mass] 27.8 pg Normal 26.0-34.0 [facility] Comment on above: Order Comment: Speci men Type: BLOOD SPECIMENOrdering Facility: [facility] Address: [address] [place] [address] Performed By: #### 5 7021-8 ####[facility] LABORATORYCLIA [id number] [address] [place] [facility] MCHC (RBC) [Mass/Vol] 29.4 g/dL Low 30.5-36.0 [facility] Comment on above: Order Comment: Speci men Type: BLOOD SPECIMENOrdering Facility: [facility] Address: [address] [place] [address] Performed By: #### 5 7021-8 ####[facility] LABORATORYCLIA [id number] [address] [place] [facility] MCV (RBC) [Entitic vol] 94.6 fL Normal 80.0-100.0 [facility] Comment on above: Order Comment: Speci men Type: BLOOD SPECIMENOrdering Facility: [facility] Address: [address] [place] [address] Performed By: #### 5 7021-8 ####[facility]ATORYCLIA [id number] [address] [place] Monocytes (Bld) [#/Vol] 0.82 10*3/uL Normal <0.87 [facility] Comment on above: Order Comment: Speci men Type: BLOOD SPECIMENOrdering Facility: [facility] Address: [address] [place] [address] Performed By: #### 5 7021-8 ####[facility] GENER[facility] LABORATORYCLIA [id number] [address] [place] Monocytes/100 WBC (Bld) 7.8 % Normal [facility] Comment on above: Order Comment: Speci men Type: BLOOD SPECIMENOrdering Facility: [facility] Address: [address] [place] [address] Performed By: #### 5 7021-8 ####[facility] LABORATORYCLIA [id number] [address] [place] Neutrophils (Bld) [#/Vol] 7.23 10*3/uL Normal 1.45-7.50 [facility] Comment on above: Order Comment: Speci men Type: BLOOD SPECIMENOrdering Facility: [facility] Address: [address] [place] [address] Performed By: #### 5 7021-8 ####[facility]ORATORYCLIA [id number] [address] [place] Neutrophils/100 WBC (Bld) 68.4 % Normal [facility] Comment on above: Order Comment: Speci men Type: BLOOD SPECIMENOrdering Facility: [facility] Address: [address] [place] [address] Performed By: #### 5 7021-8 ####[facility]ORATORYCLIA [id number] [place] [address] [place] Nucleated RBC (Bld) [#/Vol] 10*3/uL Normal <0.01 [facility] Comment on above: Order Comment: Speci men Type: BLOOD SPECIMENOrdering Facility: [facility] Address: [address] [place] [address] Performed By: #### 5 7021-8 ####[facility] LABORATORYCLIA [id number] [place] [address] [place] Nucleated RBC/100 WBC (Bld) [Ratio] 0.0 /100 WBC Normal [facility] Comment on above: Order Comment: Speci men Type: BLOOD SPECIMENOrdering Facility: [facility] Address: [address] [place] [address] Performed By: #### 5 7021-8 ####[facility] LABORATORYCLIA [id number] [address] [place] Platelet mean volume (Bld) [Entitic vol] 10.5 fL Normal 9.0-12.7 [facility] Comment on above: Order Comment: Speci men Type: BLOOD SPECIMENOrdering Facility: [facility] Address: [address] [place] [address] Performed By: #### 5 7021-8 ####[facility] LABORATORYCLIA [id number] [place] [address] [place] Platelets (Bld) [#/Vol] 400 10*3/uL Normal 150-400 [facility] Comment on above: Order Comment: Speci men Type: BLOOD SPECIMENOrdering Facility: [facility] Address: [address] Performed By: #### 5 7021-8 ####[facility] LABORATORYCLIA [id number] [place] [address] [place] RBC (Bld) [#/Vol] 3.49 10*6/uL Low 4.20-6.00 [facility] Comment on above: Order Comment: Speci men Type: BLOOD SPECIMENOrdering Facility: [facility] Address: [address] [place] [address] Performed By: #### 5 7021-8 ####[facility] LABORATORYCLIA [id number] [place] [address] [place] WBC (Bld) [#/Vol] 10.56 10*3/uL Normal 3.70-11.00 [facility] Comment on above: Order Comment: Speci men Type: BLOOD SPECIMENOrdering Facility: [facility] Address: [address] [place] [address] Performed By: #### 5 7021-8 ####[facility] LABORATORYCLIA [id number] [address] [place] CONSULT PROGon 07-20-2021 CONSULT PROG Normal [facility] CT BRAIN WO IVCONon 07-21-[address] BRAIN WO IVCON Normal [facility] Magnesium SerPl-ncon 07-20 Magnesium [Mass/Vol] 2.4 mg/dL High 1.7-2.3 [facility] Comment on above: Order Comment: Speci men Type: BLOOD SPECIMENOrdering Facility: [facility] Address: [facility] [place] [address] Performed By: #### 2 4321-2, , 2776-05 ####[facility] LABORATORYCLIA [id number] [address] [place] NUTRITIONon 07-20-2021 NUTRITION Normal [facility] Phosphate SerPl-mCncon 07-20 Phosphate [Mass/Vol] 4.1 mg/dL Normal 2.7-4.8 [facility] Comment on above: Order Comment: Speci men Type: BLOOD SPECIMENOrdering Facility: [facility] Address: [address] [place] [address] Performed By: #### 2 4321-2, , 2777 ####[facility]ORATORYCLIA [id number] [address] [place] aPTT PPPon 07-20-2021 aPTT Coag (PPP) [Time] 53.6 s High 23.0-32.4 [facility] Comment on above: Order Comment: Speci men Type: BLOOD SPECIMENOrdering Facility: [facility] Address: [address] [place] [address] Performed By: #### 1 4979-9 ####[facility] LABORATORYCLIA [id number] [address] [place] Bacteria CSF Culton 07-20-19 22 Bacteria identified Cx Nom (CSF) CULTURE, CSF: No growth 14 days GRAM STAIN: No organisms seen No Polymorphonuclear Leukocytes Rare Mononuclear cells Gram stain performed on cytospun specimen. Normal [facility] Comment on above: Performed By: #### 6 06-4 ####[facility]ORATORYCLIA [id number] [address] [place] CONSULT PROGon 07-19-2021 CONSULT PROG Normal [facility] CSF MANUAL DIFFon 07-19-2021 DIF TTL, CSF 100 cells counted Normal [facility] Comment on above: Order Comment: Speci men Type: CEREBROSPINAL FLUIDOrdering Facility: [facility] Address: [address] [place] [address] Performed By: #### L [id number], 15498-0, [id number] ####[facility] LABORATORYCLIA [id number] [address] [place] EOSIN%, CSF 1 % Normal [facility] Comment on above: Order Comment: Speci men Type: CEREBROSPINAL FLUIDOrdering Facility: [facility] Address: [address] [place] [address] Performed By: #### L [id number], 09680-5, [id number] ####[facility] LABORATORYCLIA [id number] [place] [address] [place] LYMPH%, CSF 67 % Normal 50-90 [facility] Comment on above: Order Comment: Speci men Type: CEREBROSPINAL FLUIDOrdering Facility: [facility] Address: [address] [place] [address] Performed By: #### L [id number], 57168-3, [id number] ####[facility]ORATORYCLIA [id number] [place] [address] [place] MACRO%, CSF 1 % High <1 [facility] Comment on above: Order Comment: Speci men Type: CEREBROSPINAL FLUIDOrdering Facility: [facility] Address: [address] [place] [address] Performed By: #### L [id number], 97057-4, [id number] ####[facility]ORATORYCLIA [id number] [place] [address] [place] MONO%, CSF 18 % Normal 10-50 [facility] Comment on above: Order Comment: Speci men Type: CEREBROSPINAL FLUIDOrdering Facility: [facility] Address: [address] [place] [address] Performed By: #### L [id number], 75583-0, [id number] ####[facility]ORYCLIA [id number] [place] [address] [place] NEUT%, CSF 11 % High 0-3 [facility] Comment on above: Order Comment: Speci men Type: CEREBROSPINAL FLUIDOrdering Facility: [facility] Address: [address] [place] [address] Performed By: #### L [id number], 92646-9, [id number] ####[facility]ORYCLIA [id number] [address] [place] OTHER CL%, CSF 2 % Normal [facility] Comment on above: Order Comment: Speci men Type: CEREBROSPINAL FLUIDOrdering Facility: [facility] Address: [address] [place] [address] Result Comment: Path review to follow. Performed By: #### L [id number], 96680-9, [id number] ####[facility]ORATORYCLIA [id number] [address] CSF PATHOLOGIST INTERP (LAB REFLEX ORDER-NO BILL)on 07-19-2021 CSF STAFF REVIEW Normal [facility] Comment on above: Order Comment: Speci men Type: CEREBROSPINAL FLUIDOrdering Facility: [facility] Address: [address] [place] [address] Performed By: #### L [id number], 86799-1, [id number] ####[facility] GENER[facility] LABORATORYCLIA [id number] [address] Pathologist name Reviewed by Wing Cummings MD Normal [facility] Comment on above: Order Comment: Speci men Type: CEREBROSPINAL FLUIDOrdering Facility: [facility] Address: [address] [place] [address] Performed By: #### L DK0568, 32969-2, [id number] ####[facility] LABORATORYCLIA [id number] [address] Cell count panel (CSF)on Clarity (CSF) Clear Normal Clear [facility] Comment on above: Order Comment: Speci men Type: CEREBROSPINAL FLUIDOrdering Facility: [facility] Address: [address] [place] [address] Performed By: #### L NV4503, 94511-0, [id number] ####[facility]ORATORYCLIA [id number] [address] Clarity (Unsp spec) Not Indicated Normal Clear [facility] Comment on above: Order Comment: Speci men Type: CEREBROSPINAL FLUIDOrdering Facility: [facility] Address: [address] [place] [address] Performed By: #### L YX9600, 29732-7, [id number] ####[facility]ORYCLIA [id number] [address] Color (CSF) Colorless Normal Colorless [facility] Comment on above: Order Comment: Speci men Type: CEREBROSPINAL FLUIDOrdering Facility: [facility] Address: [address] [place] [address] Performed By: #### L [id number], 90032-7, [id number] ####[facility] LABORATORYCLIA [id number] [address] [place] Color (Spun CSF) Not Indicated Normal Colorless [facility] Comment on above: Order Comment: Speci men Type: CEREBROSPINAL FLUIDOrdering Facility: [facility] Address: [address] [place] [address] Performed By: #### L [id number], 10473-2, [id number] ####[facility] LABORATORYCLIA [id number] [address] CSF [employer] Normal [facility] Comment on above: Order Comment: Speci men Type: CEREBROSPINAL FLUIDOrdering Facility: [facility] Address: [address] [place] [address] Performed By: #### L [id number], 53569-3, [id number] ####[facility] LABORATORYCLIA [id number] [address] STATES [place] [facility] RBC Manual cnt (CSF) [#/Vol] 0 cells/uL Normal 0-5 [facility] Comment on above: Order Comment: Speci men Type: CEREBROSPINAL FLUIDOrdering Facility: [facility] Address: [address] [place] [address] Performed By: #### L [id number], 17053-7, [id number] ####[facility] LABORATORYCLIA [id number] [address] WBC Manual cnt (CSF) [#/Vol] 2 cells/uL Normal 0-5 [facility] Comment on above: Order Comment: Speci men Type: CEREBROSPINAL FLUIDOrdering Facility: [facility] Address: [address] [place] [address] Performed By: #### L DO2783, 57420-0, [id number] ####[facility] LABORATORYCLIA [id number] [address] OF [facility] Glucose CSF-mCncon 2 Glucose (CSF) [Mass/Vol] 69 mg/dL Normal 40-70 [facility] Comment on above: Order Comment: Speci men Type: CEREBROSPINAL FLUIDOrdering Facility: [facility] Address: [address] [place] [address] Result Comment: Lumb ar CSF glucose values of healthy patients are approximately 60% of the plasma values and must always be compared with a concurrently measured plasma value for adequate clinical interpretation.References: 1. Glucose HK (GLUC3) [package insert V 12.0 Cymraes]. [employer], [place], [place]. September 2015. 2. Michelle Moore, Loki HGarfield (2015). Chapter 7: Glucose and Lactate. Heydi. Irina rose al.(eds.), Cerebrospinal Fluid in Clinical Neurology. Saunders: [employer]. Performed By: #### 2 342-4, 2880-3 ####[facility] LABORATORYCLIA [id number] [address] NURSING PROGon 07-19-2021 NURSING PROG Normal [facility] NURSING PROG Normal [facility] Prot CSF-mCncon 07-19-2021 Protein (CSF) [Mass/Vol] 51 mg/dL High 15-45 [facility] Comment on above: Order Comment: Speci men Type: CEREBROSPINAL FLUIDOrdering Facility: [facility] Address: [address] [place] [place] [address] Performed By: #### 2 342-4, 2880-3 ####[facility] LABORATORYCLIA [id number] [address] THERAPY NTon 07-19-2021 THERAPY NT Normal [facility] Urinalysis complete panel (U )on 07-19-2021 Bilirubin Ql (U) Negative Normal Negative [facility] Comment on above: Order Comment: Speci men Type: URINE SPECIMENOrdering Facility: [facility] Address: [address] [place] [address] Performed By: #### 2 4356-8 ####[facility] LABORATORYCLIA [id number] [address] Clarity (Unsp spec) Clear Normal Clear [facility] Comment on above: Order Comment: Speci men Type: URINE SPECIMENOrdering Facility: [facility] Address: [address] [place] [address] Performed By: #### 2 4356-8 ####[facility] LABORATORYCLIA [id number] [address] Color (U) Colorless Normal yellow [facility] Comment on above: Order Comment: Speci men Type: URINE SPECIMENOrdering Facility: [facility] Address: [address] [place] [address] Performed By: #### 2 4356-8 ####[facility] LABORATORYCLIA [id number] [address] Glucose Test strip (U) [Mass/Vol] Negative Normal Negative [facility] Comment on above: Order Comment: Speci men Type: URINE SPECIMENOrdering Facility: [facility] Address: [address] [place] [address] Performed By: #### 2 4356-8 ####[facility] LABORATORYCLIA [id number] [address] Hemoglobin Ql (U) Trace Abnormal Negative [facility] Comment on above: Order Comment: Speci men Type: URINE SPECIMENOrdering Facility: [facility] Address: [address] [place] [address] Performed By: #### 2 4356-8 ####[facility] LABORATORYCLIA [id number] [address] Hyaline casts (Urine sed) [#/Area] 1-3 /LPF Abnormal 0 /LPF [facility] Comment on above: Order Comment: Speci men Type: URINE SPECIMENOrdering Facility: [facility] Address: [address] [place] [address] Performed By: #### 2 4356-8 ####[facility] LABORATORYCLIA [id number] [address] Ketones Ql (U) Negative Normal Negative [facility] Comment on above: Order Comment: Speci men Type: URINE SPECIMENOrdering Facility: [facility] Address: [address] [place] [address] Performed By: #### 2 4356-8 ####[facility] LABORATORYCLIA [id number] [address] Leukocyte esterase Test strip Ql (U) Negative Normal Negative [facility] Comment on above: Order Comment: Speci men Type: URINE SPECIMENOrdering Facility: [facility] Address: [address] [place] [address] Performed By: #### 2 4356-8 ####[facility] LABORATORYCLIA [id number] [address] Nitrite Ql (U) Negative Normal Negative [facility] Comment on above: Order Comment: Speci men Type: URINE SPECIMENOrdering Facility: [facility] Address: [address] [place] [address] Performed By: #### 2 4356-8 ####[facility] LABORATORYCLIA [id number] [address] pH (U) 7.0 [pH] Normal 5.0-8.0 [facility] Comment on above: Order Comment: Speci men Type: URINE SPECIMENOrdering Facility: [facility] [facility]OSP[facility] Address: [address] [place] [address] Performed By: #### 2 4356-8 ####[facility] LABORATORYCLIA [id number] [address] Protein (U) [Mass/Vol] Negative Normal Negative [facility] Comment on above: Order Comment: Speci men Type: URINE SPECIMENOrdering Facility: [facility] Address: [address] [place] [address] Performed By: #### 2 4356-8 ####[facility] LABORATORYCLIA [id number] [address] RBC LM.HPF (Urine sed) [#/Area] 6-10 /HPF Abnormal 0-3 /HPF [facility] Comment on above: Order Comment: Speci men Type: URINE SPECIMENOrdering Facility: [facility] Address: [address] [place] [address] Performed By: #### 2 4356-8 ####[facility] LABORATORYCLIA [id number] [address] Specific gravity (U) [Rel density] 1.008 Normal 1.005-1.030 [facility] Comment on above: Order Comment: Speci men Type: URINE SPECIMENOrdering Facility: [facility] Address: [address] [place] [address] Performed By: #### 2 4356-8 ####[facility] LABORATORYCLIA [id number] [address] Urobilinogen Ql (U) Normal Normal Negative [facility] Comment on above: Order Comment: Speci men Type: URINE SPECIMENOrdering Facility: [facility] Address: [address] [place] [address] Performed By: #### 2 4356-8 ####[facility] [id number] [address] WBC LM.HPF (Urine sed) [#/Area] 0-5 /HPF Normal 0-5 /HPF [facility] Comment on above: Order Comment: Speci men Type: URINE SPECIMENOrdering Facility: [facility] Address: [address] [place] [address] Performed By: #### 2 4356-8 ####[facility] LABORATORYCLIA [id number] [address] [place] Vancomycin random [Mass/Vol] on 07-19-2021 Vancomycin [Mass/Vol] 13.9 ug/mL Normal 10.0-20.0 [facility] Comment on above: Order Comment: Speci men Type: BLOOD SPECIMENOrdering Facility: [facility] Address: [address] [place] [address] Result Comment: Refe rence ranges and high/low indicator flags are provided as general guidelines only. The treating physician must determine appropriate target levels/dosing based on the specific clinical situation. Performed By: #### 4 091-5 ####[facility] LABORATORYCLIA [id number] [place] [address] [place] aPTT PPPon 07-19-2021 aPTT Coag (PPP) [Time] 53.9 s High 23.0-32.4 [facility] Comment on above: Order Comment: Speci men Type: BLOOD SPECIMENOrdering Facility: [facility] Address: [address] [place] [address] Performed By: #### 1 4979-9 ####[facility] LABORATORYCLIA [id number] [place] [id number] [place] Basic metabolic 2000 panelon 07-18-2021 Anion gap [Moles/Vol] 6 mmol/L Low 9-18 [facility] Comment on above: Order Comment: Speci men Type: BLOOD SPECIMENOrdering Facility: [facility] Address: [address] [place] [address] Performed By: #### 2 4321-2, , 2776-05 ####[facility]PITALCLIA [id number] [place] [address] [place] Calcium [Mass/Vol] 9.4 mg/dL Normal 8.5-10.2 [facility] Comment on above: Order Comment: Speci men Type: BLOOD SPECIMENOrdering Facility: [facility] Address: [address] [place] [address] Performed By: #### 2 4321-2, , 27711-04 ####[facility] LABORATORYCLIA [id number] [place] [address] [place] Chloride [Moles/Vol] 103 mmol/L Normal 97-105 [facility] Comment on above: Order Comment: Speci men Type: BLOOD SPECIMENOrdering Facility: [facility] Address: [address] [place] [address] Performed By: #### 2 4321-2, , 277- ####[facility] LABORATORYCLIA [id number] [place] [address] [place] CO2 [Moles/Vol] 34 mmol/L High 22-30 [facility] Comment on above: Order Comment: Speci men Type: BLOOD SPECIMENOrdering Facility: [facility] Address: [address] [place] [address] Performed By: #### 2 4321-2, , 2776-05 ####[facility] LABORATORYCLIA [id number] [place] [address] [place] Creatinine [Mass/Vol] 0.75 mg/dL Normal 0.73-1.22 [facility] Comment on above: Order Comment: Speci men Type: BLOOD SPECIMENOrdering Facility: [facility] Address: [address] [place] [address] Performed By: #### 2 4321-2, , 2776-05 ####[facility]PITALCLIA [id number] [address] STATES OF [facility] ESTIMATED GLOMERULAR FILTRATION RATE 98 mL/min/1.73m??? Normal >=60 [facility] Comment on above: Order Comment: Speci men Type: BLOOD SPECIMENOrdering Facility: [facility] Address: [address] [place] [address] Result Comment: Luzmaria mated Glomerular Filtration Rate [...] 2 4321-2, , 2776-05 ####[facility] LABORATORYCLIA [id number] [place] [id number] [place] Glucose [Mass/Vol] 125 mg/dL High 74-99 [facility] Comment on above: Order Comment: Speci men Type: BLOOD SPECIMENOrdering Facility: [facility] Address: [address] [place] [address] Result Comment: The [place] Diabetes Association (ADA) provides guidance for cutoff [...] Standards of Medical Care in Diabetes 2016, [place] Diabetes Association. Diabetes Care. 2016.39(Suppl 1). Performed By: #### 2 4321-2, , 2776-05 ####[facility] LABORATORYCLIA [id number] [place] [address] [place] Potassium [Moles/Vol] 4.4 mmol/L Normal 3.7-5.1 [facility] Comment on above: Order Comment: Shira feldman Type: BLOOD SPECIMENOrdering Facility: [facility] Address: [address] [address] Performed By: #### 2 4321-2, , 2776-05 ####[facility] LABORATORYCLIA [id number] [place] [address] [place] Sodium [Moles/Vol] 143 mmol/L Normal 136-144 [facility] Comment on above: Order Comment: Shira feldman Type: BLOOD SPECIMENOrdering Facility: [facility] Address: [address] Performed By: #### 2 4321-2, , 2776-05 ####[facility] LABORATORYCLIA [id number] [place] [address] [place] Urea nitrogen [Mass/Vol] 33 mg/dL High 9-24 [facility] Comment on above: Order Comment: Shira feldman Type: BLOOD SPECIMENOrdering Facility: [facility] Address: [address] [place] [address] Performed By: #### 2 4321-2, , 2776-1 ####[facility] LABORATORYCLIA [id number] [address] [place] CASE MANAGEMon 07-18-2021 CASE MANAGEM Normal [facility] CBC W Auto Differential pane l (Bld)on 07-18-2021 Basophils (Bld) [#/Vol] 0.05 10*3/uL Normal <0.11 [facility] Comment on above: Order Comment: Speci men Type: BLOOD SPECIMENOrdering Facility: [facility] Address: [address] [place] [address] Performed By: #### 5 7021-8 ####[facility] LABORATORYCLIA [id number] [address] Basophils/100 WBC (Bld) 0.5 % Normal [facility] Comment on above: Order Comment: Speci men Type: BLOOD SPECIMENOrdering Facility: [facility] Address: [address] [place] [address] Performed By: #### 5 7021-8 ####[facility] LABORATORYCLIA [id number] [address] Differential cell count method Nom (Bld) Auto Normal [facility] Comment on above: Order Comment: Speci men Type: BLOOD SPECIMENOrdering Facility: [facility] Address: [address] [place] [address] Performed By: #### 5 7021-8 ####[facility] LABORATORYCLIA [id number] [address] [place] Eosinophils (Bld) [#/Vol] 0.44 10*3/uL Normal <0.46 [facility] Comment on above: Order Comment: Speci men Type: BLOOD SPECIMENOrdering Facility: [facility] Address: [address] [place] [address] Performed By: #### 5 7021-8 ####[facility] LABORATORYCLIA [id number] [address] Eosinophils/100 WBC (Bld) 4.3 % Normal [facility] Comment on above: Order Comment: Speci men Type: BLOOD SPECIMENOrdering Facility: [facility] Address: [address] [place] [address] Performed By: #### 5 7021-8 ####[facility] LABORATORYCLIA [id number] [address] Erythrocyte distribution width (RBC) [Ratio] 16.6 % High 11.5-15.0 [facility] Comment on above: Order Comment: Speci men Type: BLOOD SPECIMENOrdering Facility: [facility] Address: [address] [place] [address] Performed By: #### 5 7021-8 ####[facility] LABORATORYCLIA [id number] [address] Hematocrit (Bld) [Volume fraction] 32.2 % Low 39.0-51.0 [facility] Comment on above: Order Comment: Speci men Type: BLOOD SPECIMENOrdering Facility: [facility] Address: [address] [place] [address] Performed By: #### 5 7021-8 ####[facility] LABORATORYCLIA [id number] [address] OF [facility] Hemoglobin (Bld) [Mass/Vol] 9.5 g/dL Low 13.0-17.0 [facility] Comment on above: Order Comment: Speci men Type: BLOOD SPECIMENOrdering Facility: [facility] Address: [address] [place] [address] Performed By: #### 5 7021-8 ####[facility] LABORATORYCLIA [id number] [address] STATES [facility] IMMATURE GRAN % 0.4 % Normal [facility] Comment on above: Order Comment: Speci men Type: BLOOD SPECIMENOrdering Facility: [facility] Address: [address] [place] [address] Performed By: #### 5 7021-8 ####[facility] LABORATORYCLIA [id number] [address] IMMATURE GRAN ABS 0.04 k/uL Normal <0.10 [facility] Comment on above: Order Comment: Speci men Type: BLOOD SPECIMENOrdering Facility: [facility] Address: [address] [place] [address] Performed By: #### 5 7021-8 ####[facility] LABORATORYCLIA [id number] [address] OF [facility] Lymphocytes (Bld) [#/Vol] 1.71 10*3/uL Normal 1.00-4.00 [facility] Comment on above: Order Comment: Speci men Type: BLOOD SPECIMENOrdering Facility: [facility] Address: [address] [place] [address] Performed By: #### 5 7021-8 ####[facility] LABORATORYCLIA [id number] [address] Lymphocytes/100 WBC (Bld) 16.9 % Normal [facility] Comment on above: Order Comment: Speci men Type: BLOOD SPECIMENOrdering Facility: [facility] Address: [address] [place] [address] Performed By: #### 5 7021-8 ####[facility] LABORATORYCLIA [id number] [address] MCH (RBC) [Entitic mass] 27.9 pg Normal 26.0-34.0 [facility] Comment on above: Order Comment: Speci men Type: BLOOD SPECIMENOrdering Facility: [facility] Address: [address] [place] [address] Performed By: #### 5 7021-8 ####[facility] LABORATORYCLIA [id number] [address] MCHC (RBC) [Mass/Vol] 29.5 g/dL Low 30.5-36.0 [facility] Comment on above: Order Comment: Speci men Type: BLOOD SPECIMENOrdering Facility: [facility] Address: [address] [place] [address] Performed By: #### 5 7021-8 ####[facility]ATORYCLIA [id number] [address] [place] MCV (RBC) [Entitic vol] 94.7 fL Normal 80.0-100.0 [facility] Comment on above: Order Comment: Speci men Type: BLOOD SPECIMENOrdering Facility: [facility] Address: [address] [place] [address] Performed By: #### 5 7021-8 ####[facility] LABORATORYCLIA [id number] [address] [place] Monocytes (Bld) [#/Vol] 0.69 10*3/uL Normal <0.87 [facility] Comment on above: Order Comment: Speci men Type: BLOOD SPECIMENOrdering Facility: [facility] Address: [address] [place] [address] Performed By: #### 5 7021-8 ####[facility] LABORATORYCLIA [id number] [address] [place] Monocytes/100 WBC (Bld) 6.8 % Normal [facility] Comment on above: Order Comment: Speci men Type: BLOOD SPECIMENOrdering Facility: [facility] Address: [address] [place] [address] Performed By: #### 5 7021-8 ####[facility] LABORATORYCLIA [id number] [address] [place] Neutrophils (Bld) [#/Vol] 7.19 10*3/uL Normal 1.45-7.50 [facility] Comment on above: Order Comment: Speci men Type: BLOOD SPECIMENOrdering Facility: [facility] Address: [address] [place] [address] Performed By: #### 5 7021-8 ####[facility] LABORATORYCLIA [id number] [address] [place] Neutrophils/100 WBC (Bld) 71.1 % Normal [facility] Comment on above: Order Comment: Speci men Type: BLOOD SPECIMENOrdering Facility: [facility] Address: [address] Performed By: #### 5 7021-8 ####[facility] LABORATORYCLIA [id number] [address] [place] Nucleated RBC (Bld) [#/Vol] 10*3/uL Normal <0.01 [facility] Comment on above: Order Comment: Speci men Type: BLOOD SPECIMENOrdering Facility: [facility] Address: [address] Performed By: #### 5 7021-8 ####[facility] LABORATORYCLIA [id number] [address] [place] Nucleated RBC/100 WBC (Bld) [Ratio] 0.0 /100 WBC Normal [facility] Comment on above: Order Comment: Speci men Type: BLOOD SPECIMENOrdering Facility: [facility] Address: [address] Performed By: #### 5 7021-8 ####[facility] LABORATORYCLIA [id number] [address] [place] Platelet mean volume (Bld) [Entitic vol] 10.3 fL Normal 9.0-12.7 [facility] Comment on above: Order Comment: Speci men Type: BLOOD SPECIMENOrdering Facility: [facility] Address: [address] Performed By: #### 5 7021-8 ####[facility] LABORATORYCLIA [id number] [address] [place] Platelets (Bld) [#/Vol] 403 10*3/uL High 150-400 [facility] Comment on above: Order Comment: Speci men Type: BLOOD SPECIMENOrdering Facility: [facility] Address: [address] [place], [place] [address] Performed By: #### 5 7021-8 ####[facility] LABORATORYCLIA [id number] [address] [place] RBC (Bld) [#/Vol] 3.40 10*6/uL Low 4.20-6.00 [facility] Comment on above: Order Comment: Speci men Type: BLOOD SPECIMENOrdering Facility: [facility] Address: [address] [place] [address] Performed By: #### 5 7021-8 ####[facility] LABORATORYCLIA [id number] [address] STATES OF [facility] WBC (Bld) [#/Vol] 10.12 10*3/uL Normal 3.70-11.00 [facility] Comment on above: Order Comment: Speci men Type: BLOOD SPECIMENOrdering Facility: [facility] Address: [address] [place] [address] Performed By: #### 5 7021-8 ####[facility] LABORATORYCLIA [id number] [address] Magnesium SerPl-mCncon 07-18 Magnesium [Mass/Vol] 2.4 mg/dL High 1.7-2.3 [facility] Comment on above: Order Comment: Speci men Type: BLOOD SPECIMENOrdering Facility: [facility] Address: [address] [place] [address] Performed By: #### 2 4321-2, , 1 ####[facility] LABORATORYCLIA [id number] [place] [address] [place] NURSING PROGon 07-18-2021 NURSING PROG Normal [facility] NURSING PROG Normal [facility] Phosphate SerPl-mCncon 07-18 Phosphate [Mass/Vol] 3.9 mg/dL Normal 2.7-4.8 [facility] Comment on above: Order Comment: Speci men Type: BLOOD SPECIMENOrdering Facility: [facility] Address: [address] [place] [address] Performed By: #### 2 4321-2, , 2777-1 ####[facility] LABORATORYCLIA [id number] [address] THERAPY NTon 07-18-2021 THERAPY NT Normal [facility] aPTT PPPon 07-18-2021 aPTT Coag (PPP) [Time] 52.3 s High 23.0-32.4 [facility] Comment on above: Order Comment: Speci men Type: BLOOD SPECIMENOrdering Facility: [facility] Address: [address] [place] [address] Performed By: #### 1 4979-9 ####[facility] LABORATORYCLIA [id number] [address] CBC W Auto Differential pane l (Bld)on 07-17-2021 Basophils (Bld) [#/Vol] 0.05 10*3/uL Normal <0.11 [facility] Comment on above: Order Comment: Speci men Type: BLOOD SPECIMENOrdering Facility: [facility] Address: [address] [place] [address] Performed By: #### 5 7021-8 ####[facility] LABORATORYCLIA [id number] [address] Basophils/100 WBC (Bld) 0.5 % Normal [facility] Comment on above: Order Comment: Speci men Type: BLOOD SPECIMENOrdering Facility: [facility] Address: [address] [place] [address] Performed By: #### 5 7021-8 ####[facility] LABORATORYCLIA [id number] [address] Differential cell count method Nom (Bld) Auto Normal [facility] Comment on above: Order Comment: Speci men Type: BLOOD SPECIMENOrdering Facility: [facility] Address: [address] [place] [address] Performed By: #### 5 7021-8 ####[facility] LABORATORYCLIA [id number] [address] Eosinophils (Bld) [#/Vol] 0.32 10*3/uL Normal <0.46 [facility] Comment on above: Order Comment: Speci men Type: BLOOD SPECIMENOrdering Facility: [facility] Address: [address] [place] [address] Performed By: #### 5 7021-8 ####[facility] LABORATORYCLIA [id number] [address] Eosinophils/100 WBC (Bld) 3.4 % Normal [facility] Comment on above: Order Comment: Speci men Type: BLOOD SPECIMENOrdering Facility: [facility] Address: [address] [place] [address] Performed By: #### 5 7021-8 ####[facility] LABORATORYCLIA [id number] [address] [place] Erythrocyte distribution width (RBC) [Ratio] 16.6 % High 11.5-15.0 [facility] Comment on above: Order Comment: Speci men Type: BLOOD SPECIMENOrdering Facility: [facility] Address: [address] [place] [address] Performed By: #### 5 7021-8 ####[facility] LABORATORYCLIA [id number] [address] STATES [facility] Hematocrit (Bld) [Volume fraction] 30.7 % Low 39.0-51.0 [facility] Comment on above: Order Comment: Speci men Type: BLOOD SPECIMENOrdering Facility: [facility] Address: [address] [place] [address] Performed By: #### 5 7021-8 ####[facility]ORYCLIA [id number] [address] [place] Hemoglobin (Bld) [Mass/Vol] 9.0 g/dL Low 13.0-17.0 [facility] Comment on above: Order Comment: Speci men Type: BLOOD SPECIMENOrdering Facility: [facility] Address: [address] [place] [address] Performed By: #### 5 7021-8 ####[facility]ORYCLIA [id number] [address] IMMATURE GRAN % 0.6 % Normal [facility] Comment on above: Order Comment: Speci men Type: BLOOD SPECIMENOrdering Facility: [facility] Address: [address] [place] [address] Performed By: #### 5 7021-8 ####[facility] LABORATORYCLIA [id number] [address] IMMATURE GRAN ABS 0.06 k/uL Normal <0.10 [facility] Comment on above: Order Comment: Speci men Type: BLOOD SPECIMENOrdering Facility: [facility] Address: [address] [place] [address] Performed By: #### 5 7021-8 ####[facility] LABORATORYCLIA [id number] [address] Lymphocytes (Bld) [#/Vol] 1.61 10*3/uL Normal 1.00-4.00 [facility] Comment on above: Order Comment: Speci men Type: BLOOD SPECIMENOrdering Facility: [facility] Address: [address] [place] [address] Performed By: #### 5 7021-8 ####[facility] LABORATORYCLIA [id number] [address] Lymphocytes/100 WBC (Bld) 17.3 % Normal [facility] Comment on above: Order Comment: Speci men Type: BLOOD SPECIMENOrdering Facility: [facility] Address: [address] [place] [address] Performed By: #### 5 7021-8 ####[facility] LABORATORYCLIA [id number] [address] MCH (RBC) [Entitic mass] 26.9 pg Normal 26.0-34.0 [facility] Comment on above: Order Comment: Speci men Type: BLOOD SPECIMENOrdering Facility: [facility] Address: [address] [place] [address] Performed By: #### 5 7021-8 ####[facility] LABORATORYCLIA [id number] [address] STATES [facility] MCHC (RBC) [Mass/Vol] 29.3 g/dL Low 30.5-36.0 [facility] Comment on above: Order Comment: Speci men Type: BLOOD SPECIMENOrdering Facility: [facility] Address: [address] [place] [address] Performed By: #### 5 7021-8 ####[facility] LABORATORYCLIA [id number] [address] [place] MCV (RBC) [Entitic vol] 91.9 fL Normal 80.0-100.0 [facility] Comment on above: Order Comment: Speci men Type: BLOOD SPECIMENOrdering Facility: [facility] Address: [address] [place] [address] Performed By: #### 5 7021-8 ####[facility] LABORATORYCLIA [id number] [address] STATES OF [facility] Monocytes (Bld) [#/Vol] 0.61 10*3/uL Normal <0.87 [facility] Comment on above: Order Comment: Speci men Type: BLOOD SPECIMENOrdering Facility: [facility] Address: [address] [place] [address] Performed By: #### 5 7021-8 ####[facility] LABORATORYCLIA [id number] [address] [place] Monocytes/100 WBC (Bld) 6.6 % Normal [facility] Comment on above: Order Comment: Speci men Type: BLOOD SPECIMENOrdering Facility: [facility] Address: [address] [place] [address] Performed By: #### 5 7021-8 ####[facility] LABORATORYCLIA [id number] [address] [place] Neutrophils (Bld) [#/Vol] 6.64 10*3/uL Normal 1.45-7.50 [facility] Comment on above: Order Comment: Speci men Type: BLOOD SPECIMENOrdering Facility: [facility] Address: [address] [place] [address] Performed By: #### 5 7021-8 ####[facility] LABORATORYCLIA [id number] [address] Neutrophils/100 WBC (Bld) 71.6 % Normal [facility] Comment on above: Order Comment: Speci men Type: BLOOD SPECIMENOrdering Facility: [facility] Address: [address] [place] [address] Performed By: #### 5 7021-8 ####[facility] LABORATORYCLIA [id number] [address] [place] Nucleated RBC (Bld) [#/Vol] 10*3/uL Normal <0.01 [facility] Comment on above: Order Comment: Speci men Type: BLOOD SPECIMENOrdering Facility: [facility] Address: [address] [place] [address] Performed By: #### 5 7021-8 ####[facility] LABORATORYCLIA [id number] [address] Nucleated RBC/100 WBC (Bld) [Ratio] 0.0 /100 WBC Normal [facility] Comment on above: Order Comment: Speci men Type: BLOOD SPECIMENOrdering Facility: [facility] Address: [address] [place] [address] Performed By: #### 5 7021-8 ####[facility] LABORATORYCLIA [id number] [address] [place] Platelet mean volume (Bld) [Entitic vol] 10.1 fL Normal 9.0-12.7 [facility] Comment on above: Order Comment: Speci men Type: BLOOD SPECIMENOrdering Facility: [facility] Address: [address] [place] [address] Performed By: #### 5 7021-8 ####[facility]ORATORYCLIA [id number] [address] OF [facility] Platelets (Bld) [#/Vol] 387 10*3/uL Normal 150-400 [facility] Comment on above: Order Comment: Speci men Type: BLOOD SPECIMENOrdering Facility: [facility] Address: [address] [place] [address] Performed By: #### 5 7021-8 ####[facility] LABORATORYCLIA [id number] [place] [address] [place] RBC (Bld) [#/Vol] 3.34 10*6/uL Low 4.20-6.00 [facility] Comment on above: Order Comment: Speci men Type: BLOOD SPECIMENOrdering Facility: [facility] Address: [address] [place] [address] Performed By: #### 5 7021-8 ####[facility] LABORATORYCLIA [id number] [address] WBC (Bld) [#/Vol] 9.29 10*3/uL Normal 3.70-11.00 [facility] Comment on above: Order Comment: Speci men Type: BLOOD SPECIMENOrdering Facility: [facility] Address: [address] [place] [address] Performed By: #### 5 7021-8 ####[facility] LABORATORYCLIA [id number] [address] CONSULT PROGon 07-17-2021 CONSULT PROG Normal [facility] Magnesium SerPl-mCncon 07-17 Magnesium [Mass/Vol] 2.3 mg/dL Normal 1.7-2.3 [facility] Comment on above: Order Comment: Speci men Type: BLOOD SPECIMENOrdering Facility: [facility] Address: [address] [place] [address] Performed By: #### 2 777-1, 55169-7 ####[facility] LABORATORYCLIA [id number] [address] [place] NURSING PROGon 07-17-2021 NURSING PROG Normal [facility] NURSING PROG Normal [facility] NURSING PROG Normal [facility] Phosphate SerPl-mCncon 07-17 Phosphate [Mass/Vol] 3.6 mg/dL Normal 2.7-4.8 [facility] Comment on above: Order Comment: Speci men Type: BLOOD SPECIMENOrdering Facility: [facility] Address: [address] [place] [address] Performed By: #### 2 777-1, ####[facility] LABORATORYCLIA [id number] [place] [address] [place] aPTT PPPon 07-17-2021 aPTT Coag (PPP) [Time] 57.2 s High 23.0-32.4 [facility] Comment on above: Order Comment: Speci men Type: BLOOD SPECIMENOrdering Facility: [facility] Address: [address] [place] [address] Performed By: #### 1 4979-9 ####[facility] LABORATORYCLIA [id number] [place] [address] [place] Basic metabolic 2000 panelon 07-16-2021 Anion gap [Moles/Vol] 5 mmol/L Low 9-18 [facility] Comment on above: Order Comment: Speci men Type: BLOOD SPECIMENOrdering Facility: [facility] Address: [address] [place] [address] Performed By: #### 2 777-1, 73605-9, 70109-3 ####[facility] LABORATORYCLIA [id number] [place] [address] [place] Calcium [Mass/Vol] 9.1 mg/dL Normal 8.5-10.2 [facility] Comment on above: Order Comment: Speci men Type: BLOOD SPECIMENOrdering Facility: [facility] Address: [address] [place] [address] Performed By: #### 2 777-1, 67802-8, ####[facility] LABORATORYCLIA [id number] [address] STATES OF [facility] Chloride [Moles/Vol] 101 mmol/L Normal 97-105 [facility] Comment on above: Order Comment: Speci men Type: BLOOD SPECIMENOrdering Facility: [facility] Address: [address] [place] [address] Performed By: #### 2 777-1, 64783-2, ####[facility] LABORATORYCLIA [id number] [address] OF [facility] CO2 [Moles/Vol] 35 mmol/L High 22-30 [facility] Comment on above: Order Comment: Speci men Type: BLOOD SPECIMENOrdering Facility: [facility] Address: [address] [place] [address] Performed By: #### 2 777-1, 61615-3, ####[facility] LABORATORYCLIA [id number] [address] Creatinine [Mass/Vol] 0.73 mg/dL Normal 0.73-1.22 [facility] Comment on above: Order Comment: Speci men Type: BLOOD SPECIMENOrdering Facility: [facility] Address: [address] [place] [address] Performed By: #### 2 777-1, 75170-1, ####[facility] LABORATORYCLIA [id number] [address] ESTIMATED GLOMERULAR FILTRATION RATE 98 mL/min/1.73m??? Normal >=60 [facility] Comment on above: Order Comment: Speci men Type: BLOOD SPECIMENOrdering Facility: [facility] Address: [address] [place] [address] Result Comment: Luzmaria mated Glomerular Filtration Rate [...] actual GFR. Performed By: #### 2 777-1, 13848-5, ####[facility] LABORATORYCLIA [id number] [place] [address] [place] Glucose [Mass/Vol] 133 mg/dL High 74-99 [facility] Comment on above: Order Comment: Speci men Type: BLOOD SPECIMENOrdering Facility: [facility] Address: [address] [place], [place] [address] Result Comment: The [place] Diabetes Association (ADA) provides guidance for cutoff [...] Standards of Medical Care in Diabetes 2016, [place] Diabetes Association. Diabetes Care. 2016.39(Suppl 1). Performed By: #### 2 777-1, 31881-3, ####[facility]PITALCLIA [id number] [place] [address] [place] Potassium [Moles/Vol] 4.2 mmol/L Normal 3.7-5.1 [facility] Comment on above: Order Comment: Speci men Type: BLOOD SPECIMENOrdering Facility: [facility] Address: [address] [id number] Performed By: #### 2 777-1, 48177-7, ####[facility] LABORATORYIA [id number] [place] [address] [place] Sodium [Moles/Vol] 141 mmol/L Normal 136-144 [facility] Comment on above: Order Comment: Speci men Type: BLOOD SPECIMENOrdering Facility: [facility] Address: [address] [id number] Performed By: #### 2 777-1, 41945-0, ####[facility] LABORATORYCLIA [id number] [address] STATES [facility] Urea nitrogen [Mass/Vol] 21 mg/dL Normal 9-24 [facility] Comment on above: Order Comment: Speci men Type: BLOOD SPECIMENOrdering Facility: [facility] Address: [address] [place] [address] Performed By: #### 2 777-1, 58595-4, ####[facility] LABORATORYCLIA [id number] [address] STATES [facility] CBC W Auto Differential pane l (Bld)on 07-16-2021 Basophils (Bld) [#/Vol] 0.06 10*3/uL Normal <0.11 [facility] Comment on above: Order Comment: Speci men Type: BLOOD SPECIMENOrdering Facility: [facility] Address: [address] [place] [address] Performed By: #### 5 7021-8 ####[facility] LABORATORYCLIA [id number] [address] [place] Basophils/100 WBC (Bld) 0.7 % Normal [facility] Comment on above: Order Comment: Speci men Type: BLOOD SPECIMENOrdering Facility: [facility] Address: [address] [place] [address] Performed By: #### 5 7021-8 ####[facility] LABORATORYCLIA [id number] [address] STATES [facility] Differential cell count method Nom (Bld) Auto Normal [facility] Comment on above: Order Comment: Speci men Type: BLOOD SPECIMENOrdering Facility: [facility] Address: [address] [place] [address] Performed By: #### 5 7021-8 ####[facility] LABORATORYCLIA [id number] [address] [place] Eosinophils (Bld) [#/Vol] 0.35 10*3/uL Normal <0.46 [facility] Comment on above: Order Comment: Speci men Type: BLOOD SPECIMENOrdering Facility: [facility] Address: [address] [place] [address] Performed By: #### 5 7021-8 ####[facility] LABORATORYCLIA [id number] [address] Eosinophils/100 WBC (Bld) 3.9 % Normal [facility] Comment on above: Order Comment: Speci men Type: BLOOD SPECIMENOrdering Facility: [facility] Address: [address] [place] [address] Performed By: #### 5 7021-8 ####[facility] LABORATORYCLIA [id number] [address] [place] Erythrocyte distribution width (RBC) [Ratio] 16.5 % High 11.5-15.0 [facility] Comment on above: Order Comment: Speci men Type: BLOOD SPECIMENOrdering Facility: [facility] Address: [address] [place] [address] Performed By: #### 5 7021-8 ####[facility] LABORATORYCLIA [id number] [address] STATES [facility] Hematocrit (Bld) [Volume fraction] 30.9 % Low 39.0-51.0 [facility] Comment on above: Order Comment: Speci men Type: BLOOD SPECIMENOrdering Facility: [facility] Address: [address] [place] [address] Performed By: #### 5 7021-8 ####[facility] LABORATORYCLIA [id number] [address] [place] Hemoglobin (Bld) [Mass/Vol] 9.1 g/dL Low 13.0-17.0 [facility] Comment on above: Order Comment: Speci men Type: BLOOD SPECIMENOrdering Facility: [facility] Address: [address] [place] [address] Performed By: #### 5 7021-8 ####[facility]ORATORYCLIA [id number] [address] IMMATURE GRAN % 0.4 % Normal [facility] Comment on above: Order Comment: Speci men Type: BLOOD SPECIMENOrdering Facility: [facility] Address: [address] [place] [address] Performed By: #### 5 7021-8 ####[facility] LABORATORYCLIA [id number] [address] IMMATURE GRAN ABS 0.04 k/uL Normal <0.10 [facility] Comment on above: Order Comment: Speci men Type: BLOOD SPECIMENOrdering Facility: [facility] Address: [address] [place] [address] Performed By: #### 5 7021-8 ####[facility] LABORATORYCLIA [id number] [address] STATES [facility] Lymphocytes (Bld) [#/Vol] 1.35 10*3/uL Normal 1.00-4.00 [facility] Comment on above: Order Comment: Speci men Type: BLOOD SPECIMENOrdering Facility: [facility] Address: [address] [place] [address] Performed By: #### 5 7021-8 ####[facility] LABORATORYCLIA [id number] [address] Lymphocytes/100 WBC (Bld) 15.0 % Normal [facility] Comment on above: Order Comment: Speci men Type: BLOOD SPECIMENOrdering Facility: [facility] Address: [address] [place] [address] Performed By: #### 5 7021-8 ####[facility] LABORATORYCLIA [id number] [address] STATES [facility] MCH (RBC) [Entitic mass] 27.1 pg Normal 26.0-34.0 [facility] Comment on above: Order Comment: Speci men Type: BLOOD SPECIMENOrdering Facility: [facility] Address: [address] [place] [address] Performed By: #### 5 7021-8 ####[facility] LABORATORYCLIA [id number] [address] STATES [facility] MCHC (RBC) [Mass/Vol] 29.4 g/dL Low 30.5-36.0 [facility] Comment on above: Order Comment: Speci men Type: BLOOD SPECIMENOrdering Facility: [facility] Address: [address] [place] [address] Performed By: #### 5 7021-8 ####[facility] LABORATORYCLIA [id number] [address] [place] MCV (RBC) [Entitic vol] 92.0 fL Normal 80.0-100.0 [facility] Comment on above: Order Comment: Speci men Type: BLOOD SPECIMENOrdering Facility: [facility] Address: [address] [place] [address] Performed By: #### 5 7021-8 ####[facility] LABORATORYCLIA [id number] [address] STATES OF [facility] Monocytes (Bld) [#/Vol] 0.53 10*3/uL Normal <0.87 [facility] Comment on above: Order Comment: Speci men Type: BLOOD SPECIMENOrdering Facility: [facility] Address: [address] [place] [address] Performed By: #### 5 7021-8 ####[facility] LABORATORYCLIA [id number] [address] Monocytes/100 WBC (Bld) 5.9 % Normal [facility] Comment on above: Order Comment: Speci men Type: BLOOD SPECIMENOrdering Facility: [facility] Address: [address] [place] [address] Performed By: #### 5 7021-8 ####[facility] LABORATORYCLIA [id number] [address] [place] Neutrophils (Bld) [#/Vol] 6.67 10*3/uL Normal 1.45-7.50 [facility] Comment on above: Order Comment: Speci men Type: BLOOD SPECIMENOrdering Facility: [facility] Address: [address] [place] [address] Performed By: #### 5 7021-8 ####[facility] LABORATORYCLIA [id number] [address] Neutrophils/100 WBC (Bld) 74.1 % Normal [facility] Comment on above: Order Comment: Speci men Type: BLOOD SPECIMENOrdering Facility: [facility] Address: [address] [place] [address] Performed By: #### 5 7021-8 ####[facility] LABORATORYCLIA [id number] [address] [place] Nucleated RBC (Bld) [#/Vol] 10*3/uL Normal <0.01 [facility] Comment on above: Order Comment: Speci men Type: BLOOD SPECIMENOrdering Facility: [facility] Address: [address] [place] [address] Performed By: #### 5 7021-8 ####[facility] LABORATORYCLIA [id number] [address] Nucleated RBC/100 WBC (Bld) [Ratio] 0.0 /100 WBC Normal [facility] Comment on above: Order Comment: Speci men Type: BLOOD SPECIMENOrdering Facility: [facility] Address: [address] [place] [address] Performed By: #### 5 7021-8 ####[facility] LABORATORYCLIA [id number] [address] [place] Platelet mean volume (Bld) [Entitic vol] 9.9 fL Normal 9.0-12.7 [facility] Comment on above: Order Comment: Speci men Type: BLOOD SPECIMENOrdering Facility: [facility] Address: [address] [place] [address] Performed By: #### 5 7021-8 ####[facility] LABORATORYCLIA [id number] [address] STATES [place] [facility] Platelets (Bld) [#/Vol] 391 10*3/uL Normal 150-400 [facility] Comment on above: Order Comment: Speci men Type: BLOOD SPECIMENOrdering Facility: [facility] Address: [address] [place] [address] Performed By: #### 5 7021-8 ####[facility] LABORATORYCLIA [id number] [place] [address] [place] RBC (Bld) [#/Vol] 3.36 10*6/uL Low 4.20-6.00 [facility] Comment on above: Order Comment: Speci men Type: BLOOD SPECIMENOrdering Facility: [facility] Address: [address] [place] [address] Performed By: #### 5 7021-8 ####[facility] LABORATORYCLIA [id number] [address] WBC (Bld) [#/Vol] 9.00 10*3/uL Normal 3.70-11.00 [facility] Comment on above: Order Comment: Speci men Type: BLOOD SPECIMENOrdering Facility: [facility] Address: [address] [place] [address] Performed By: #### 5 7021-8 ####[facility]ORATORYCLIA [id number] [address] CONSULT PROGon 07-16-2021 CONSULT PROG Normal [facility] CONSULT PROG Normal [facility] Magnesium SerPl-mCncon 07-16 Magnesium [Mass/Vol] 2.3 mg/dL Normal 1.7-2.3 [facility] Comment on above: Order Comment: Speci men Type: BLOOD SPECIMENOrdering Facility: [facility] Address: [address] [place] [address] Performed By: #### 2 777-1, 39510-1, 45436-6 ####[facility] LABORATORYCLIA [id number] [address] [place] NURSING PROGon 07-16-2021 NURSING PROG Normal [facility] Phosphate SerPl-mCncon 07-16 Phosphate [Mass/Vol] 3.6 mg/dL Normal 2.7-4.8 [facility] Comment on above: Order Comment: Speci men Type: BLOOD SPECIMENOrdering Facility: [facility] Address: [address] [place] [address] Performed By: #### 2 777-1, 77429-2, 21130-4 ####[facility] LABORATORYCLIA [id number] [address] Vancomycin random [Mass/Vol] on 07-16-2021 Vancomycin [Mass/Vol] 16.9 ug/mL Normal 10.0-20.0 [facility] Comment on above: Order Comment: Speci men Type: BLOOD SPECIMENOrdering Facility: [facility] Address: [address] [place] [address] Result Comment: Refe rence ranges and high/low indicator flags are provided as general guidelines only. The treating physician must determine appropriate target levels/dosing based on the specific clinical situation. Performed By: #### 4 091-5 ####[facility]ORATORYCLIA [id number] [address] aPTT PPPon 07-16-2021 aPTT Coag (PPP) [Time] 57.2 s High 23.0-32.4 [facility] Comment on above: Order Comment: Speci men Type: BLOOD SPECIMENOrdering Facility: [facility] Address: [address] [place] [address] Performed By: #### 1 4979-9 ####[facility] LABORATORYCLIA [id number] [address] [place] ALLIED HEALTHon 07-15-2021 ALLIED HEALTH Normal [facility] Basic metabolic 2000 panelon 07-15-2021 Anion gap [Moles/Vol] 11 mmol/L Normal 9-18 [facility] Comment on above: Order Comment: Speci men Type: BLOOD SPECIMENOrdering Facility: [facility] Address: [address] Performed By: #### 2 4321-2, , 2776-05 ####[facility] LABORATORYCLIA [id number] [place] [address] [place] Calcium [Mass/Vol] 8.8 mg/dL Normal 8.5-10.2 [facility] Comment on above: Order Comment: Speci men Type: BLOOD SPECIMENOrdering Facility: [facility] Address: [address] [place] [address] Performed By: #### 2 4321-2, , 2776-05 ####[facility] LABORATORYCLIA [id number] [place] [address] [place] Chloride [Moles/Vol] 101 mmol/L Normal 97-105 [facility] Comment on above: Order Comment: Speci men Type: BLOOD SPECIMENOrdering Facility: [facility] Address: [address] [place] [address] Performed By: #### 2 1-2, , 2776-05 ####[facility] LABORATORYCLIA [id number] [place] [address] [place] CO2 [Moles/Vol] 31 mmol/L High 22-30 [facility] Comment on above: Order Comment: Speci men Type: BLOOD SPECIMENOrdering Facility: [facility] Address: [address] Performed By: #### 2 4321-2, , 2776-05 ####[facility] LABORATORYCLIA [id number] [place] [address] [place] Creatinine [Mass/Vol] 0.76 mg/dL Normal 0.73-1.22 [facility] Comment on above: Order Comment: Speci men Type: BLOOD SPECIMENOrdering Facility: [facility] Address: [address] [place], [place] [address] Performed By: #### 2 4321-2, , 2776-05 ####[facility]ITALIA [id number] [address] ESTIMATED GLOMERULAR FILTRATION RATE 97 mL/min/1.73m??? Normal >=60 [facility] Comment on above: Order Comment: Shira francia Type: BLOOD SPECIMENOrdering Facility: [facility] Address: [address] [place] [address] Result Comment: Luzmaria mated Glomerular Filtration Rate [...] #### 2 4321-2, , 2776-05 ####[facility] [id number] [address] Glucose [Mass/Vol] 115 mg/dL High 74-99 [facility] Comment on above: Order Comment: Shira feldman Type: BLOOD SPECIMENOrdering Facility: [facility] Address: [address] [place] [address] Result Comment: The [place] Diabetes Association (ADA) provides guidance for cutoff [...] Standards of Medical Care in Diabetes 2016, [place] Diabetes Association. Diabetes Care. 2016.39(Suppl 1). Performed By: #### 2 4321-2, , 2776-05 ####[facility]ITALIA [id number] [address] STATES [facility] Potassium [Moles/Vol] 4.0 mmol/L Normal 3.7-5.1 [facility] Comment on above: Order Comment: Speci men Type: BLOOD SPECIMENOrdering Facility: [facility] Address: [address] [place] [address] Performed By: #### 2 4321-2, 17476-4, 2776- ####[facility] LABORATORYCLIA [id number] [address] STATES OF [facility] Sodium [Moles/Vol] 143 mmol/L Normal 136-144 [facility] Comment on above: Order Comment: Speci men Type: BLOOD SPECIMENOrdering Facility: [facility] Address: [address] [place] [address] Performed By: #### 2 4321-2, , 2776-05 ####[facility] LABORATORYCLIA [id number] [address] [place] [facility] Urea nitrogen [Mass/Vol] 17 mg/dL Normal 9-24 [facility] Comment on above: Order Comment: Speci men Type: BLOOD SPECIMENOrdering Facility: [facility] Address: [address] [place] [address] Performed By: #### 2 4321-2, , 2776-05 ####[facility] LABORATORYCLIA [id number] [address] [place] [facility] CASE MANAGEMon 07-15-2021 CASE MANAGEM Normal [facility] CBC panel Auto (Bld)on 07-15 Erythrocyte distribution width (RBC) [Ratio] 16.4 % High 11.5-15.0 [facility] Comment on above: Order Comment: Speci men Type: BLOOD SPECIMENOrdering Facility: [facility] Address: [address] [place] [address] Performed By: #### 5 8410-2 ####[facility] LABORATORYCLIA [id number] [address] [place] Hematocrit (Bld) [Volume fraction] 30.3 % Low 39.0-51.0 [facility] Comment on above: Order Comment: Speci men Type: BLOOD SPECIMENOrdering Facility: [facility] Address: [address] [place] [address] Performed By: #### 5 8410-2 ####[facility] LABORATORYCLIA [id number] [address] [facility] Hemoglobin (Bld) [Mass/Vol] 9.2 g/dL Low 13.0-17.0 [facility] Comment on above: Order Comment: Speci men Type: BLOOD SPECIMENOrdering Facility: [facility] Address: [address] [place] [address] Performed By: #### 5 8410-2 ####[facility] LABORATORYCLIA [id number] [address] [place] [facility] MCH (RBC) [Entitic mass] 28.3 pg Normal 26.0-34.0 [facility] Comment on above: Order Comment: Speci men Type: BLOOD SPECIMENOrdering Facility: [facility] Address: [address] [place] [address] Performed By: #### 5 8410-2 ####[facility] LABORATORYCLIA [id number] [address] [facility] MCHC (RBC) [Mass/Vol] 30.4 g/dL Low 30.5-36.0 [facility] Comment on above: Order Comment: Speci men Type: BLOOD SPECIMENOrdering Facility: [facility] Address: [address] [place] [address] Performed By: #### 5 8410-2 ####[facility] LABORATORYCLIA [id number] [address] MCV (RBC) [Entitic vol] 93.2 fL Normal 80.0-100.0 [facility] Comment on above: Order Comment: Speci men Type: BLOOD SPECIMENOrdering Facility: [facility] Address: [address] [place] [address] Performed By: #### 5 8410-2 ####[facility] LABORATORYCLIA [id number] [address] [place] Nucleated RBC (Bld) [#/Vol] 10*3/uL Normal <0.01 [facility] Comment on above: Order Comment: Speci men Type: BLOOD SPECIMENOrdering Facility: [facility] Address: [address] [place] [address] Performed By: #### 5 8410-2 ####[facility] LABORATORYCLIA [id number] [address] [place] Platelet mean volume (Bld) [Entitic vol] 9.9 fL Normal 9.0-12.7 [facility] Comment on above: Order Comment: Speci men Type: BLOOD SPECIMENOrdering Facility: [facility] Address: [address] [place] [address] Performed By: #### 5 8410-2 ####[facility] LABORATORYCLIA [id number] [address] [place] Platelets (Bld) [#/Vol] 381 10*3/uL Normal 150-400 [facility] Comment on above: Order Comment: Speci men Type: BLOOD SPECIMENOrdering Facility: [facility] Address: [address] [place] [address] Performed By: #### 5 8410-2 ####[facility] LABORATORYCLIA [id number] [address] [place] RBC (Bld) [#/Vol] 3.25 10*6/uL Low 4.20-6.00 [facility] Comment on above: Order Comment: Speci men Type: BLOOD SPECIMENOrdering Facility: [facility] Address: [address] [place] [address] Performed By: #### 5 8410-2 ####[facility] LABORATORYCLIA [id number] [address] [place] WBC (Bld) [#/Vol] 8.80 10*3/uL Normal 3.70-11.00 [facility] Comment on above: Order Comment: Speci men Type: BLOOD SPECIMENOrdering Facility: [facility] Address: [address] [place] [address] Performed By: #### 5 8410-2 ####[facility] LABORATORYCLIA [id number] [address] [place] [facility] Magnesium SerPl-mCncon 07-15 Magnesium [Mass/Vol] 2.2 mg/dL Normal 1.7-2.3 [facility] Comment on above: Order Comment: Speci men Type: BLOOD SPECIMENOrdering Facility: [facility] Address: [address] [place] [address] Performed By: #### 2 4321-2, , 2776-05 ####[facility] LABORATORYCLIA [id number] [address] [place] NURSING PROGon 07-15-2021 [...] Comment: Speci men Type: BLOOD SPECIMENOrdering Facility: [facility] Address: [address] [place] [address] Performed By: #### 2 4321-2, , 2776-05 ####[facility] LABORATORYCLIA [id number] [address] [place] THERAPY NTon 07-15-2021 THERAPY NT Normal [facility] US DVT UPPER LTon 07-15-2021 US DVT UPPER LT Normal [facility] XR CHEST 1V FRONTALon 2021 XR CHEST 1V FRONTAL Normal [facility] aPTT PPPon 07-15-2021 aPTT Coag (PPP) [Time] 59.9 s High 23.0-32.4 [facility] Comment on above: Order Comment: Speci men Type: BLOOD SPECIMENOrdering Facility: [facility] Address: [address] [place] [address] Performed By: #### 1 4979-9 ####[facility] LABORATORYCLIA [id number] [place] [address] [place] Basic metabolic 2000 panelon 07-14-2021 Anion gap [Moles/Vol] 9 mmol/L Normal 9-18 [facility] Comment on above: Order Comment: Speci men Type: BLOOD SPECIMENOrdering Facility: [facility] Address: [address] [place] [address] Performed By: #### 1 9123-9, 2777-1, 02347-1 ####[facility] LABORATORYCLIA [id number] [place] [address] [place] Calcium [Mass/Vol] 8.5 mg/dL Normal 8.5-10.2 [facility] Comment on above: Order Comment: Speci men Type: BLOOD SPECIMENOrdering Facility: [facility] Address: [address] [place] [address] Performed By: #### 1 9123-9, 2777-1, 85110-3 ####[facility] LABORATORYCLIA [id number] [address] [place] Chloride [Moles/Vol] 99 mmol/L Normal 97-105 [facility] Comment on above: Order Comment: Speci men Type: BLOOD SPECIMENOrdering Facility: [facility] Address: [address] [place] [address] Performed By: #### 1 9123-9, 2777-1, 04988-2 ####[facility] LABORATORYCLIA [id number] [place] [address] [place] CO2 [Moles/Vol] 31 mmol/L High 22-30 [facility] Comment on above: Order Comment: Speci men Type: BLOOD SPECIMENOrdering Facility: [facility] Address: [address] [place] [address] Performed By: #### 1 9123-9, 2777-1, 03733-8 ####[facility]PITALCLIA [id number] [place] [address] [place] [facility] Creatinine [Mass/Vol] 0.74 mg/dL Normal 0.73-1.22 [facility] Comment on above: Order Comment: Speccara feldman Type: BLOOD SPECIMENOrdering Facility: [facility] Address: [address] [place], [place] [address] Performed By: #### 1 9123-9, 2777-1, 63038-3 ####[facility]OSPITALIA [id number] [place] [address] [place] [facility] ESTIMATED GLOMERULAR FILTRATION RATE 98 mL/min/1.73m??? Normal >=60 [facility] Comment on above: Order Comment: Shira feldman Type: BLOOD SPECIMENOrdering Facility: [facility] Address: [address] [place] [address] Result Comment: Luzmaria mated Glomerular Filtration Rate [...] GFR. Performed By: #### 1 9123-9, 2777-1, 03564-9 ####[facility] HOSPITALIA [id number] [place] [address] [place] Glucose [Mass/Vol] 117 mg/dL High 74-99 [facility] Comment on above: Order Comment: Speccara francia Type: BLOOD SPECIMENOrdering Facility: [facility] Address: [address] [id number] Result Comment: The [place] Diabetes Association (ADA) provides guidance for cutoff [...] Standards of Medical Care in Diabetes 2016, [place] Diabetes Association. Diabetes Care. 2016.39(Suppl 1). Performed By: #### 1 9123-9, 2777-1, 18050-4 ####[facility] LABORATORYCLIA [id number] [address] [place] Potassium [Moles/Vol] 3.7 mmol/L Normal 3.7-5.1 [facility] Comment on above: Order Comment: Shira feldman Type: BLOOD SPECIMENOrdering Facility: [facility] Address: [address] [place] [address] Performed By: #### 1 9123-9, 2777, 39810-2 ####[facility]OSPITALIA [id number] [address] [place] [facility] Sodium [Moles/Vol] 139 mmol/L Normal 136-144 [facility] Comment on above: Order Comment: Shira feldman Type: BLOOD SPECIMENOrdering Facility: [facility] Address: [address] [place] [address] Performed By: #### 1 9123-9, 2777, 30324-3 ####[facility]OSPITALCLIA [id number] [address] STATES [facility] Urea nitrogen [Mass/Vol] 16 mg/dL Normal 9-24 [facility] Comment on above: Order Comment: Shira feldman Type: BLOOD SPECIMENOrdering Facility: [facility] Address: [address] [place] [address] Performed By: #### 1 9123-9, 2777, 00644-1 ####[facility] LABORATORYCLIA [id number] [address] [place] CBC panel Auto (Bld)on 07-14 Erythrocyte distribution width (RBC) [Ratio] 16.2 % High 11.5-15.0 [facility] Comment on above: Order Comment: Speci men Type: BLOOD SPECIMENOrdering Facility: [facility] Address: [address] [place] [address] Performed By: #### 5 8410-2 ####[facility] LABORATORYCLIA [id number] [address] Hematocrit (Bld) [Volume fraction] 29.7 % Low 39.0-51.0 [facility] Comment on above: Order Comment: Speci men Type: BLOOD SPECIMENOrdering Facility: [facility] Address: [address] [place] [address] Performed By: #### 5 8410-2 ####[facility] LABORATORYCLIA [id number] [address] OF [facility] Hemoglobin (Bld) [Mass/Vol] 8.8 g/dL Low 13.0-17.0 [facility] Comment on above: Order Comment: Speci men Type: BLOOD SPECIMENOrdering Facility: [facility] Address: [address] [place] [address] Performed By: #### 5 8410-2 ####[facility] LABORATORYCLIA [id number] [address] MCH (RBC) [Entitic mass] 27.5 pg Normal 26.0-34.0 [facility] Comment on above: Order Comment: Speci men Type: BLOOD SPECIMENOrdering Facility: [facility] Address: [address] [place] [address] Performed By: #### 5 8410-2 ####[facility] LABORATORYCLIA [id number] [address] MCHC (RBC) [Mass/Vol] 29.6 g/dL Low 30.5-36.0 [facility] Comment on above: Order Comment: Speci men Type: BLOOD SPECIMENOrdering Facility: [facility] Address: [address] [place] [address] Performed By: #### 5 8410-2 ####[facility] LABORATORYCLIA [id number] [address] MCV (RBC) [Entitic vol] 92.8 fL Normal 80.0-100.0 [facility] Comment on above: Order Comment: Speci men Type: BLOOD SPECIMENOrdering Facility: [facility] Address: [address] [place] [address] Performed By: #### 5 8410-2 ####[facility] LABORATORYCLIA [id number] [address] Nucleated RBC (Bld) [#/Vol] 10*3/uL Normal <0.01 [facility] Comment on above: Order Comment: Speci men Type: BLOOD SPECIMENOrdering Facility: [facility] Address: [address] [place] [address] Performed By: #### 5 8410-2 ####[facility] LABORATORYCLIA [id number] [address] Platelet mean volume (Bld) [Entitic vol] 9.6 fL Normal 9.0-12.7 [facility] Comment on above: Order Comment: Speci men Type: BLOOD SPECIMENOrdering Facility: [facility] Address: [address] [place] [address] Performed By: #### 5 8410-2 ####[facility] LABORATORYCLIA [id number] [address] Platelets (Bld) [#/Vol] 354 10*3/uL Normal 150-400 [facility] Comment on above: Order Comment: Speci men Type: BLOOD SPECIMENOrdering Facility: [facility] Address: [address] [place] [address] Performed By: #### 5 8410-2 ####[facility] LABORATORYCLIA [id number] [address] [place] RBC (Bld) [#/Vol] 3.20 10*6/uL Low 4.20-6.00 [facility] Comment on above: Order Comment: Speci men Type: BLOOD SPECIMENOrdering Facility: [facility] Address: [address] [place] [address] Performed By: #### 5 8410-2 ####[facility] LABORATORYCLIA [id number] [address] [place] WBC (Bld) [#/Vol] 9.41 10*3/uL Normal 3.70-11.00 [facility] Comment on above: Order Comment: Speci men Type: BLOOD SPECIMENOrdering Facility: [facility] Address: [address] [place] [address] Performed By: #### 5 8410-2 ####[facility] LABORATORYCLIA [id number] [address] CONSULT PROGon 07-14-2021 CONSULT PROG Normal [facility] Magnesium SerPl-ncon 07-14 Magnesium [Mass/Vol] 2.2 mg/dL Normal 1.7-2.3 [facility] Comment on above: Order Comment: Speci men Type: BLOOD SPECIMENOrdering Facility: [facility] Address: [address] [place] [address] Performed By: #### 1 9123-9, 2777-1, 97444-3 ####[facility] LABORATORYCLIA [id number] [address] NURSING PROGon 07-14-2021 NURSING PROG Normal [facility] Phosphate SerPl-mCncon 07-14 Phosphate [Mass/Vol] 3.6 mg/dL Normal 2.7-4.8 [facility] Comment on above: Order Comment: Speci men Type: BLOOD SPECIMENOrdering Facility: [facility] Address: [address] [place] [address] Performed By: #### 1 9123-9, 2777-1, 92213-0 ####[facility] LABORATORYCLIA [id number] [address] [place] aPTT PPPon 07-14-2021 aPTT Coag (PPP) [Time] 62.9 s High 23.0-32.4 [facility] Comment on above: Order Comment: Speci men Type: BLOOD SPECIMENOrdering Facility: [facility] Address: [address] [place] [address] Performed By: #### 1 4979-9 ####[facility] LABORATORYCLIA [id number] [address] [place] aPTT Coag (PPP) [Time] 55.2 s High 23.0-32.4 [facility] Comment on above: Order Comment: Speci men Type: BLOOD SPECIMENOrdering Facility: [facility] Address: [address] [place] [address] Performed By: #### 1 4979-9 ####[facility] LABORATORYCLIA [id number] [place] [address] [place] Basic metabolic 2000 panelon 07-13-2021 Anion gap [Moles/Vol] 10 mmol/L Normal 9-18 [facility] Comment on above: Order Comment: Speci men Type: BLOOD SPECIMENOrdering Facility: [facility] Address: [address] [place] [address] Performed By: #### 1 9123-9, 2777-1, 52863-1 ####[facility] LABORATORYCLIA [id number] [place] [address] [place] Calcium [Mass/Vol] 8.5 mg/dL Normal 8.5-10.2 [facility] Comment on above: Order Comment: Speci men Type: BLOOD SPECIMENOrdering Facility: [facility] Address: [address] [place] [address] Performed By: #### 1 9123-9, 2777-1, 92732-2 ####[facility] LABORATORYCLIA [id number] [address] [place] Chloride [Moles/Vol] 98 mmol/L Normal 97-105 [facility] Comment on above: Order Comment: Speci men Type: BLOOD SPECIMENOrdering Facility: [facility] Address: [address] [place] [address] Performed By: #### 1 9123-9, 2777, 47689-1 ####[facility]ITALCLIA [id number] [address] CO2 [Moles/Vol] 32 mmol/L High 22-30 [facility] Comment on above: Order Comment: Speci men Type: BLOOD SPECIMENOrdering Facility: [facility] Address: [address] [place] [address] Performed By: #### 1 9123-9, 2777, ####[facility]ITALIA [id number] [address] Creatinine [Mass/Vol] 0.75 mg/dL Normal 0.73-1.22 [facility] Comment on above: Order Comment: Speci men Type: BLOOD SPECIMENOrdering Facility: [facility] Address: [address] [place] [address] Performed By: #### 1 9123-9, 2777, ####[facility]ITALIA [id number] [address] ESTIMATED GLOMERULAR FILTRATION RATE 98 mL/min/1.73m??? Normal >=60 [facility] Comment on above: Order Comment: Speci men Type: BLOOD SPECIMENOrdering Facility: [facility] Address: [address] [place] [address] Result Comment: Luzmaria mated Glomerular Filtration Rate [...] GFR. Performed By: #### 1 9123-9, 2777-, 87794-2 ####[facility] LABORATORYCLIA [id number] [place] [address] [place] Glucose [Mass/Vol] 118 mg/dL High 74-99 [facility] Comment on above: Order Comment: Speci men Type: BLOOD SPECIMENOrdering Facility: [facility] Address: [address] [place] [address] Result Comment: The [place] Diabetes Association (ADA) provides guidance for cutoff [...] Standards of Medical Care in Diabetes 2016, [place] Diabetes Association. Diabetes Care. 2016.39(Suppl 1). Performed By: #### 1 9123-9, 2777-1, 94092-6 ####[facility] LABORATORYCLIA [id number] [place] [address] [place] Potassium [Moles/Vol] 3.6 mmol/L Low 3.7-5.1 [facility] Comment on above: Order Comment: Shira feldman Type: BLOOD SPECIMENOrdering Facility: [facility] Address: [address] [place] [address] Performed By: #### 1 9123-9, 2777-, 26655-5 ####[facility] LABORATORYCLIA [id number] [place] [address] [place] Sodium [Moles/Vol] 140 mmol/L Normal 136-144 [facility] Comment on above: Order Comment: Johni men Type: BLOOD SPECIMENOrdering Facility: [facility] Address: [address] [address] Performed By: #### 1 9123-9, 2777-, 54973-0 ####[facility] LABORATORYCLIA [id number] [address] [place] Urea nitrogen [Mass/Vol] 15 mg/dL Normal 9-24 [facility] Comment on above: Order Comment: Speci men Type: BLOOD SPECIMENOrdering Facility: [facility] Address: [address] [place] [address] Performed By: #### 1 9123-9, 2777-1, 19404-8 ####[facility] LABORATORYCLIA [id number] [address] [place] CASE MANAGEMon 07-13-2021 CASE MANAGEM Normal [facility] CBC panel Auto (Bld)on 07-13 Erythrocyte distribution width (RBC) [Ratio] 16.2 % High 11.5-15.0 [facility] Comment on above: Order Comment: Speci men Type: BLOOD SPECIMENOrdering Facility: [facility] Address: [address] [place] [address] Performed By: #### 5 8410-2 ####[facility] LABORATORYCLIA [id number] [address] [place] Hematocrit (Bld) [Volume fraction] 29.5 % Low 39.0-51.0 [facility] Comment on above: Order Comment: Speci men Type: BLOOD SPECIMENOrdering Facility: [facility] Address: [address] [place] [address] Performed By: #### 5 8410-2 ####[facility] LABORATORYCLIA [id number] [address] [place] Hemoglobin (Bld) [Mass/Vol] 8.9 g/dL Low 13.0-17.0 [facility] Comment on above: Order Comment: Speci men Type: BLOOD SPECIMENOrdering Facility: [facility] Address: [address] [place] [address] Performed By: #### 5 8410-2 ####[facility] LABORATORYCLIA [id number] [place] [address] [place] MCH (RBC) [Entitic mass] 27.8 pg Normal 26.0-34.0 [facility] Comment on above: Order Comment: Speci men Type: BLOOD SPECIMENOrdering Facility: [facility] Address: [address] [place] [address] Performed By: #### 5 8410-2 ####[facility] LABORATORYCLIA [id number] [address] MCHC (RBC) [Mass/Vol] 30.2 g/dL Low 30.5-36.0 [facility] Comment on above: Order Comment: Speci men Type: BLOOD SPECIMENOrdering Facility: [facility] Address: [address] [place] [address] Performed By: #### 5 8410-2 ####[facility] LABORATORYCLIA [id number] [address] [place] MCV (RBC) [Entitic vol] 92.2 fL Normal 80.0-100.0 [facility] Comment on above: Order Comment: Speci men Type: BLOOD SPECIMENOrdering Facility: [facility] Address: [address] [place] [address] Performed By: #### 5 8410-2 ####[facility] LABORATORYCLIA [id number] [address] Nucleated RBC (Bld) [#/Vol] 10*3/uL Normal <0.01 [facility] Comment on above: Order Comment: Speci men Type: BLOOD SPECIMENOrdering Facility: [facility] Address: [address] [place] [address] Performed By: #### 5 8410-2 ####[facility] LABORATORYCLIA [id number] [address] Platelet mean volume (Bld) [Entitic vol] 9.8 fL Normal 9.0-12.7 [facility] Comment on above: Order Comment: Speci men Type: BLOOD SPECIMENOrdering Facility: [facility] Address: [address] [place] [address] Performed By: #### 5 8410-2 ####[facility] LABORATORYCLIA [id number] [address] [place] Platelets (Bld) [#/Vol] 356 10*3/uL Normal 150-400 [facility] Comment on above: Order Comment: Speci men Type: BLOOD SPECIMENOrdering Facility: [facility] Address: [address] [place] [address] Performed By: #### 5 8410-2 ####[facility] LABORATORYCLIA [id number] [place] [address] [place] RBC (Bld) [#/Vol] 3.20 10*6/uL Low 4.20-6.00 [facility] Comment on above: Order Comment: Speci men Type: BLOOD SPECIMENOrdering Facility: [facility] Address: [address] [place] [address] Performed By: #### 5 8410-2 ####[facility] LABORATORYCLIA [id number] [address] [place] [facility] WBC (Bld) [#/Vol] 9.20 10*3/uL Normal 3.70-11.00 [facility] Comment on above: Order Comment: Speci men Type: BLOOD SPECIMENOrdering Facility: [facility] Address: [address] [place] [address] Performed By: #### 5 8410-2 ####[facility] LABORATORYCLIA [id number] [address] [place] CONSULT PROGon 07-13-2021 CONSULT PROG Normal [facility] CONSULT PROG Normal [facility] CONSULT PROG Normal [facility] Magnesium SerPl-mCncon 07-13 Magnesium [Mass/Vol] 2.1 mg/dL Normal 1.7-2.3 [facility] Comment on above: Order Comment: Speci men Type: BLOOD SPECIMENOrdering Facility: [facility] Address: [address] [place] [address] Performed By: #### 1 9123-9, 2777-1, 31605-0 ####[facility] LABORATORYCLIA [id number] [place] [address] [place] Phosphate SerPl-mCncon 07-13 Phosphate [Mass/Vol] 3.7 mg/dL Normal 2.7-4.8 [facility] Comment on above: Order Comment: Speci men Type: BLOOD SPECIMENOrdering Facility: [facility] Address: [address] [place] [address] Performed By: #### 1 9123-9, 2777-1, 79093-1 ####[facility] LABORATORYCLIA [id number] [address] OF [facility] THERAPY NTon 07-13-2021 THERAPY NT Normal [facility] THERAPY NT Normal [facility] Vancomycin random [Mass/Vol] on 07-13-2021 Vancomycin [Mass/Vol] 31.7 ug/mL High 10.0-20.0 [facility] Comment on above: Order Comment: Speci men Type: BLOOD SPECIMENOrdering Facility: [facility] Address: [address] [place] [address] Result Comment: Refe rence ranges and high/low indicator flags are provided as general guidelines only. The treating physician must determine appropriate target levels/dosing based on the specific clinical situation. Performed By: #### 4 091-5 ####[facility] LABORATORYCLIA [id number] [place] [address] [place] aPTT PPPon 07-13-2021 aPTT Coag (PPP) [Time] 47.3 s High 23.0-32.4 [facility] Comment on above: Order Comment: Speci men Type: BLOOD SPECIMENOrdering Facility: [facility] Address: [address] [place] [address] Performed By: #### 1 4979-9 ####[facility] LABORATORYCLIA [id number] [place] [address] [place] aPTT Coag (PPP) [Time] 51.2 s High 23.0-32.4 [facility] Comment on above: Order Comment: Speci men Type: BLOOD SPECIMENOrdering Facility: [facility] Address: [address] [place] [address] Performed By: #### 1 4979-9 ####[facility] LABORATORYCLIA [id number] [address] aPTT Coag (PPP) [Time] 47.5 s High 23.0-32.4 [facility] Comment on above: Order Comment: Speci men Type: BLOOD SPECIMENOrdering Facility: [facility] Address: [address] [place] [address] Performed By: #### 1 4979-9 ####[facility] LABORATORYCLIA [id number] [address] [place] Basic metabolic 2000 panelon 07-12-2021 Anion gap [Moles/Vol] 7 mmol/L Low 9-18 [facility] Comment on above: Order Comment: Speci men Type: BLOOD SPECIMENOrdering Facility: [facility] Address: [address] [place] [address] Performed By: #### 1 9123-9, 2777-1, 84133-6 ####[facility]ITALCLIA [id number] [place] [address] [place] Calcium [Mass/Vol] 8.3 mg/dL Low 8.5-10.2 [facility] Comment on above: Order Comment: Speci men Type: BLOOD SPECIMENOrdering Facility: [facility] Address: [address] [place] [address] Performed By: #### 1 9123-9, 2777-1, 65373-0 ####[facility] LABORATORYCLIA [id number] [address] STATES [place] [facility] Chloride [Moles/Vol] 101 mmol/L Normal 97-105 [facility] Comment on above: Order Comment: Speci men Type: BLOOD SPECIMENOrdering Facility: [facility] Address: [address] [place] [address] Performed By: #### 1 9123-9, 2776-05, ####[facility]PITALCLIA [id number] [place] [address] [place] CO2 [Moles/Vol] 32 mmol/L High 22-30 [facility] Comment on above: Order Comment: Speci men Type: BLOOD SPECIMENOrdering Facility: [facility] Address: [address] [place] [address] Performed By: #### 1 9123-9, 2776-05, ####[facility]ITALCLIA [id number] [address] STATES [facility] Creatinine [Mass/Vol] 0.70 mg/dL Low 0.73-1.22 [facility] Comment on above: Order Comment: Speci men Type: BLOOD SPECIMENOrdering Facility: [facility] Address: [address] [place] [address] Performed By: #### 1 9123-9, 2776-05, ####[facility]ITALIA [id number] [address] ESTIMATED GLOMERULAR FILTRATION RATE 100 mL/min/1.73m??? Normal >=60 [facility] Comment on above: Order Comment: Speci men Type: BLOOD SPECIMENOrdering Facility: [facility] Address: [address] [place] [address] Result Comment: Luzmaria mated Glomerular Filtration Rate [...] GFR. Performed By: #### 1 9123-9, 27711-04, ####[facility] LABORATORYCLIA [id number] [address] [place] Glucose [Mass/Vol] 104 mg/dL High 74-99 [facility] Comment on above: Order Comment: Speci men Type: BLOOD SPECIMENOrdering Facility: [facility] Address: [address] [place], [place] [id number] Result Comment: The [place] Diabetes Association (ADA) provides guidance for cutoff [...] Standards of Medical Care in Diabetes 2016, [place] Diabetes Association. Diabetes Care. 2016.39(Suppl 1). Performed By: #### 1 9123-9, 2777-, 84884-9 ####[facility] LABORATORYCLIA [id number] [place] [address] [place] Potassium [Moles/Vol] 3.7 mmol/L Normal 3.7-5.1 [facility] Comment on above: Order Comment: Shira francia Type: BLOOD SPECIMENOrdering Facility: [facility] Address: [address] [place], [place] [address] Performed By: #### 1 9123-9, 2777-, 39977-7 ####[facility] LABORATORYCLIA [id number] [place] [address] [place] Sodium [Moles/Vol] 140 mmol/L Normal 136-144 [facility] Comment on above: Order Comment: Johni men Type: BLOOD SPECIMENOrdering Facility: [facility] Address: [address] [place], [place] [address] Performed By: #### 1 9123-9, 2777, 40711-7 ####[facility] LABORATORYCLIA [id number] [place] [address] [place] Urea nitrogen [Mass/Vol] 12 mg/dL Normal 9-24 [facility] Comment on above: Order Comment: Speci men Type: BLOOD SPECIMENOrdering Facility: [facility] Address: [address] [place] [address] Performed By: #### 1 9123-9, 2777-1, 95580-4 ####[facility] LABORATORYCLIA [id number] [address] CBC panel Auto (Bld)on 07-12 Erythrocyte distribution width (RBC) [Ratio] 16.1 % High 11.5-15.0 [facility] Comment on above: Order Comment: Speci men Type: BLOOD SPECIMENOrdering Facility: [facility] Address: [address] [place] [address] Performed By: #### 5 8410-2 ####[facility] LABORATORYCLIA [id number] [address] Hematocrit (Bld) [Volume fraction] 28.2 % Low 39.0-51.0 [facility] Comment on above: Order Comment: Speci men Type: BLOOD SPECIMENOrdering Facility: [facility] Address: [address] [place] [address] Performed By: #### 5 8410-2 ####[facility] LABORATORYCLIA [id number] [address] Hemoglobin (Bld) [Mass/Vol] 8.5 g/dL Low 13.0-17.0 [facility] Comment on above: Order Comment: Speci men Type: BLOOD SPECIMENOrdering Facility: [facility] Address: [address] [place] [address] Performed By: #### 5 8410-2 ####[facility] LABORATORYCLIA [id number] [address] [place] MCH (RBC) [Entitic mass] 26.8 pg Normal 26.0-34.0 [facility] Comment on above: Order Comment: Speci men Type: BLOOD SPECIMENOrdering Facility: [facility] Address: [address] [place] [address] Performed By: #### 5 8410-2 ####[facility] LABORATORYCLIA [id number] [address] MCHC (RBC) [Mass/Vol] 30.1 g/dL Low 30.5-36.0 [facility] Comment on above: Order Comment: Speci men Type: BLOOD SPECIMENOrdering Facility: [facility] Address: [address] [place] [address] Performed By: #### 5 8410-2 ####[facility] LABORATORYCLIA [id number] [address] MCV (RBC) [Entitic vol] 89.0 fL Normal 80.0-100.0 [facility] Comment on above: Order Comment: Speci men Type: BLOOD SPECIMENOrdering Facility: [facility] Address: [address] [place] [address] Performed By: #### 5 8410-2 ####[facility] LABORATORYCLIA [id number] [address] Nucleated RBC (Bld) [#/Vol] 10*3/uL Normal <0.01 [facility] Comment on above: Order Comment: Speci men Type: BLOOD SPECIMENOrdering Facility: [facility] Address: [address] [place] [address] Performed By: #### 5 8410-2 ####[facility] LABORATORYCLIA [id number] [address] [place] Platelet mean volume (Bld) [Entitic vol] 9.6 fL Normal 9.0-12.7 [facility] Comment on above: Order Comment: Speci men Type: BLOOD SPECIMENOrdering Facility: [facility] Address: [address] [place] [address] Performed By: #### 5 8410-2 ####[facility] LABORATORYCLIA [id number] [address] [place] Platelets (Bld) [#/Vol] 340 10*3/uL Normal 150-400 [facility] Comment on above: Order Comment: Speci men Type: BLOOD SPECIMENOrdering Facility: [facility] Address: [address] [place] [address] Performed By: #### 5 8410-2 ####[facility] LABORATORYCLIA [id number] [address] RBC (Bld) [#/Vol] 3.17 10*6/uL Low 4.20-6.00 [facility] Comment on above: Order Comment: Speci men Type: BLOOD SPECIMENOrdering Facility: [facility] Address: [address] [place] [address] Performed By: #### 5 8410-2 ####[facility] LABORATORYCLIA [id number] [address] WBC (Bld) [#/Vol] 8.66 10*3/uL Normal 3.70-11.00 [facility] Comment on above: Order Comment: Speci men Type: BLOOD SPECIMENOrdering Facility: [facility] Address: [address] [place] [address] Performed By: #### 5 8410-2 ####[facility] LABORATORYCLIA [id number] [address] CONSULTon 07-12-2021 CONSULT Normal [facility] CONSULT PROGon 07-12-2021 CONSULT PROG Normal [facility] Magnesium SerPl-ncon 07-12 Magnesium [Mass/Vol] 2.1 mg/dL Normal 1.7-2.3 [facility] Comment on above: Order Comment: Speci men Type: BLOOD SPECIMENOrdering Facility: [facility] Address: [address] [place] [address] Performed By: #### 1 9123-9, 2777-1, 98102-7 ####[facility] LABORATORYCLIA [id number] [address] NURSING PROGon 07-12-2021 NURSING PROG Normal [facility] Phosphate SerPl-mCncon 07-12 Phosphate [Mass/Vol] 3.1 mg/dL Normal 2.7-4.8 [facility] Comment on above: Order Comment: Speci men Type: BLOOD SPECIMENOrdering Facility: [facility] Address: [address] [place] [address] Performed By: #### 1 9123-9, 2777-1, 02345-4 ####[facility] LABORATORYCLIA [id number] [address] [facility] THERAPY NTon 07-12-2021 THERAPY NT Normal [facility] aPTT PPPon 07-12-2021 aPTT Coag (PPP) [Time] 49.5 s High 23.0-32.4 [facility] Comment on above: Order Comment: Speci men Type: BLOOD SPECIMENOrdering Facility: [facility] Address: [address] [place] [address] Performed By: #### 1 4979-9 ####[facility] LABORATORYCLIA [id number] [address] aPTT Coag (PPP) [Time] 68.0 s High 23.0-32.4 [facility] Comment on above: Order Comment: Speci men Type: BLOOD SPECIMENOrdering Facility: [facility] Address: [address] [place] [address] Performed By: #### 1 4979-9 ####[facility] LABORATORYCLIA [id number] [address] aPTT Coag (PPP) [Time] 80.0 s High 23.0-32.4 [facility] Comment on above: Order Comment: Speci men Type: BLOOD SPECIMENOrdering Facility: [facility] Address: [address] [place] [address] Performed By: #### 1 4979-9 ####[facility] LABORATORYCLIA [id number] [address] [place] CASE MGT INIT ASSESon 2021 CASE MGT INIT ASSES Normal [facility] CBC panel Auto (Bld)on 07-11 Erythrocyte distribution width (RBC) [Ratio] 16.3 % High 11.5-15.0 [facility] Comment on above: Order Comment: Speci men Type: BLOOD SPECIMENOrdering Facility: [facility] Address: [address] [place] [address] Performed By: #### 5 8410-2 ####[facility] LABORATORYCLIA [id number] [address] Hematocrit (Bld) [Volume fraction] 28.3 % Low 39.0-51.0 [facility] Comment on above: Order Comment: Speci men Type: BLOOD SPECIMENOrdering Facility: [facility] Address: [address] [place] [address] Performed By: #### 5 8410-2 ####[facility] LABORATORYCLIA [id number] [address] OF [facility] Hemoglobin (Bld) [Mass/Vol] 8.8 g/dL Low 13.0-17.0 [facility] Comment on above: Order Comment: Speci men Type: BLOOD SPECIMENOrdering Facility: [facility] Address: [address] [place] [address] Performed By: #### 5 8410-2 ####[facility] LABORATORYCLIA [id number] [address] [place] MCH (RBC) [Entitic mass] 27.4 pg Normal 26.0-34.0 [facility] Comment on above: Order Comment: Speci men Type: BLOOD SPECIMENOrdering Facility: [facility] Address: [address] [place] [address] Performed By: #### 5 8410-2 ####[facility] LABORATORYCLIA [id number] [address] [place] MCHC (RBC) [Mass/Vol] 31.1 g/dL Normal 30.5-36.0 [facility] Comment on above: Order Comment: Speci men Type: BLOOD SPECIMENOrdering Facility: [facility] Address: [address] Performed By: #### 5 8410-2 ####[facility] LABORATORYCLIA [id number] [address] MCV (RBC) [Entitic vol] 88.2 fL Normal 80.0-100.0 [facility] Comment on above: Order Comment: Speci men Type: BLOOD SPECIMENOrdering Facility: [facility] Address: [address] [address] [address] Performed By: #### 5 8410-2 ####[facility] LABORATORYCLIA [id number] [address] Nucleated RBC (Bld) [#/Vol] 10*3/uL Normal <0.01 [facility] Comment on above: Order Comment: Speci men Type: BLOOD SPECIMENOrdering Facility: [facility] Address: [address] [address] Performed By: #### 5 8410-2 ####[facility] LABORATORYCLIA [id number] [address] Platelet mean volume (Bld) [Entitic vol] 9.7 fL Normal 9.0-12.7 [facility] Comment on above: Order Comment: Speci men Type: BLOOD SPECIMENOrdering Facility: [facility] Address: [address] [address] Performed By: #### 5 8410-2 ####[facility] LABORATORYCLIA [id number] [address] Platelets (Bld) [#/Vol] 315 10*3/uL Normal 150-400 [facility] Comment on above: Order Comment: Speci men Type: BLOOD SPECIMENOrdering Facility: [facility] Address: [address] [address] Performed By: #### 5 8410-2 ####[facility] LABORATORYCLIA [id number] [address] [place] RBC (Bld) [#/Vol] 3.21 10*6/uL Low 4.20-6.00 [facility] Comment on above: Order Comment: Speci men Type: BLOOD SPECIMENOrdering Facility: [facility] Address: [address] [place] [address] Performed By: #### 5 8410-2 ####[facility] LABORATORYCLIA [id number] [address] [place] WBC (Bld) [#/Vol] 9.18 10*3/uL Normal 3.70-11.00 [facility] Comment on above: Order Comment: Speci men Type: BLOOD SPECIMENOrdering Facility: [facility] Address: [address] [place] [address] Performed By: #### 5 8410-2 ####[facility] LABORATORYCLIA [id number] [address] [place] CONSULT PROGon 07-11-2021 CONSULT PROG Normal [facility] CT BRAIN WO IVCONon 07-12-[address] BRAIN WO IVCON Normal [facility] Magnesium SerPl-mCncon 07-11 Magnesium [Mass/Vol] 2.1 mg/dL Normal 1.7-2.3 [facility] Comment on above: Order Comment: Speci men Type: BLOOD SPECIMENOrdering Facility: [facility] Address: [address] [place] [address] Performed By: #### 1 9123-9, 2777-1 ####[facility] LABORATORYCLIA [id number] [address] [place] NURSING PROGon 07-11-2021 NURSING PROG Normal [facility] NURSING PROG Normal [facility] Phosphate SerPl-mCncon 07-11 Phosphate [Mass/Vol] 3.4 mg/dL Normal 2.7-4.8 [facility] Comment on above: Order Comment: Speci men Type: BLOOD SPECIMENOrdering Facility: [facility] Address: [address] [place] [address] Performed By: #### 1 9123-9, 2777-1 ####[facility] LABORATORYCLIA [id number] [address] [place] THERAPY NTon 07-11-2021 THERAPY NT Normal [facility] Vancomycin random [Mass/Vol] on 07-11-2021 Vancomycin [Mass/Vol] 28.6 ug/mL High 10.0-20.0 [facility] Comment on above: Order Comment: Speci men Type: BLOOD SPECIMENOrdering Facility: [facility] Address: [address] [place] [address] Result Comment: Refe rence ranges and high/low indicator flags are provided as general guidelines only. The treating physician must determine appropriate target levels/dosing based on the specific clinical situation. Performed By: #### 4 091-5 ####[facility] LABORATORYCLIA [id number] [address] aPTT PPPon 07-11-2021 aPTT Coag (PPP) [Time] 62.0 s High 23.0-32.4 [facility] Comment on above: Order Comment: Speci men Type: BLOOD SPECIMENOrdering Facility: [facility] Address: [address] [place] [address] Performed By: #### 1 4979-9 ####[facility]CL[facility] [id number] [address] aPTT Coag (PPP) [Time] 52.7 s High 23.0-32.4 [facility] Comment on above: Order Comment: Speci men Type: BLOOD SPECIMENOrdering Facility: [facility] Address: [address] [place] [address] Performed By: #### 1 4979-9 ####[facility] LABORATORYCLIA [id number] [address] aPTT Coag (PPP) [Time] 29.9 s Normal 23.0-32.4 [facility] Comment on above: Order Comment: Speci men Type: BLOOD SPECIMENOrdering Facility: [facility] Address: [address] [place] [address] Performed By: #### 1 4979-9 ####[facility] LABORATORYCLIA [id number] [place] [address] [place] Basic metabolic 2000 panelon 07-10-2021 Anion gap [Moles/Vol] 14 mmol/L Normal 9-18 [facility] Comment on above: Order Comment: Speci men Type: BLOOD SPECIMENOrdering Facility: [facility] Address: [address] [place] [address] Performed By: #### 1 9123-9, 2777-, 61729-0 ####[facility] LABORATORYCLIA [id number] [place] [address] [place] Calcium [Mass/Vol] 8.5 mg/dL Normal 8.5-10.2 [facility] Comment on above: Order Comment: Speci men Type: BLOOD SPECIMENOrdering Facility: [facility] Address: [address] [place] [address] Performed By: #### 1 9123-9, 2777, 05976-8 ####[facility] LABORATORYCLIA [id number] [place] [address] [place] Chloride [Moles/Vol] 100 mmol/L Normal 97-105 [facility] Comment on above: Order Comment: Speci men Type: BLOOD SPECIMENOrdering Facility: [facility] Address: [address] [address] Performed By: #### 1 9123-9, 27711-04, 40662-1 ####[facility] LABORATORYCLIA [id number] [place] [address] [place] CO2 [Moles/Vol] 27 mmol/L Normal 22-30 [facility] Comment on above: Order Comment: Speci men Type: BLOOD SPECIMENOrdering Facility: [facility] Address: [address] [address] Performed By: #### 1 9123-9, 2777-1, 45931-5 ####[facility] LABORATORYCLIA [id number] [address] STATES [place] [facility] Creatinine [Mass/Vol] 0.66 mg/dL Low 0.73-1.22 [facility] Comment on above: Order Comment: Shira feldman Type: BLOOD SPECIMENOrdering Facility: [facility] Address: [address] [place] [address] Performed By: #### 1 9123-9, 2777-, 97272-0 ####[facility] LABORATORYCLIA [id number] [address] ESTIMATED GLOMERULAR FILTRATION RATE 102 mL/min/1.73m??? Normal >=60 [facility] Comment on above: Order Comment: Shira feldman Type: BLOOD SPECIMENOrdering Facility: [facility] Address: [address] [place] [address] Result Comment: Luzmaria mated Glomerular Filtration Rate [...] GFR. Performed By: #### 1 9123-9, 2777-, 16579-9 ####[facility] LABORATORYCLIA [id number] [address] OF [facility] Glucose [Mass/Vol] 93 mg/dL Normal 74-99 [facility] Comment on above: Order Comment: Shira feldman Type: BLOOD SPECIMENOrdering Facility: [facility] Address: [address] [place] [address] Result Comment: The [place] Diabetes Association (ADA) provides guidance for cutoff [...] Standards of Medical Care in Diabetes 2016, [place] Diabetes Association. Diabetes Care. 2016.39(Suppl 1). Performed By: #### 1 9123-9, 2777-1, 00002-3 ####[facility] LABORATORYCLIA [id number] [address] STATES [place] [facility] Potassium [Moles/Vol] 3.5 mmol/L Low 3.7-5.1 [facility] Comment on above: Order Comment: Speci men Type: BLOOD SPECIMENOrdering Facility: [facility] Address: [address] [place] [address] Performed By: #### 1 9123-9, 27711-04, 69052-2 ####[facility] LABORATORYCLIA [id number] [address] STATES [facility] Sodium [Moles/Vol] 141 mmol/L Normal 136-144 [facility] Comment on above: Order Comment: Speci francia Type: BLOOD SPECIMENOrdering Facility: [facility] Address: [address] [place] [address] Performed By: #### 1 9123-9, 27711-04, 21370-0 ####[facility] LABORATORYCLIA [id number] [address] Urea nitrogen [Mass/Vol] 11 mg/dL Normal 9-24 [facility] Comment on above: Order Comment: Speci men Type: BLOOD SPECIMENOrdering Facility: [facility] Address: [address] [place] [address] Performed By: #### 1 9123-9, 27711-04, 88476-1 ####[facility] LABORATORYCLIA [id number] [address] CBC panel Auto (Bld)on 07-10 Erythrocyte distribution width (RBC) [Ratio] 16.2 % High 11.5-15.0 [facility] Comment on above: Order Comment: Speci men Type: BLOOD SPECIMENOrdering Facility: [facility] Address: [address] [place] [address] Performed By: #### 5 8410-2 ####[facility] LABORATORYCLIA [id number] [address] Hematocrit (Bld) [Volume fraction] 30.6 % Low 39.0-51.0 [facility] Comment on above: Order Comment: Speci men Type: BLOOD SPECIMENOrdering Facility: [facility] Address: [address] [place] [address] Performed By: #### 5 8410-2 ####[facility] LABORATORYCLIA [id number] [address] Hemoglobin (Bld) [Mass/Vol] 9.6 g/dL Low 13.0-17.0 [facility] Comment on above: Order Comment: Speci men Type: BLOOD SPECIMENOrdering Facility: [facility] Address: [address] [place] [address] Performed By: #### 5 8410-2 ####[facility] LABORATORYCLIA [id number] [address] MCH (RBC) [Entitic mass] 28.3 pg Normal 26.0-34.0 [facility] Comment on above: Order Comment: Speci men Type: BLOOD SPECIMENOrdering Facility: [facility] Address: [address] [place] [address] Performed By: #### 5 8410-2 ####[facility] LABORATORYCLIA [id number] [address] [place] MCHC (RBC) [Mass/Vol] 31.4 g/dL Normal 30.5-36.0 [facility] Comment on above: Order Comment: Speci men Type: BLOOD SPECIMENOrdering Facility: [facility] Address: [address] [place] [address] Performed By: #### 5 8410-2 ####[facility] LABORATORYCLIA [id number] [place] [address] MCV (RBC) [Entitic vol] 90.3 fL Normal 80.0-100.0 [facility] Comment on above: Order Comment: Speci men Type: BLOOD SPECIMENOrdering Facility: [facility] Address: [address] [place] [address] Performed By: #### 5 8410-2 ####[facility] LABORATORYCLIA [id number] [address] OF [facility] Nucleated RBC (Bld) [#/Vol] 10*3/uL Normal <0.01 [facility] Comment on above: Order Comment: Speci men Type: BLOOD SPECIMENOrdering Facility: [facility] Address: [address] [place] [address] Performed By: #### 5 8410-2 ####[facility] LABORATORYCLIA [id number] [address] STATES OF [facility] Platelet mean volume (Bld) [Entitic vol] 9.7 fL Normal 9.0-12.7 [facility] Comment on above: Order Comment: Speci men Type: BLOOD SPECIMENOrdering Facility: [facility] Address: [address] [place] [address] Performed By: #### 5 8410-2 ####[facility] LABORATORYCLIA [id number] [address] Platelets (Bld) [#/Vol] 306 10*3/uL Normal 150-400 [facility] Comment on above: Order Comment: Speci men Type: BLOOD SPECIMENOrdering Facility: [facility] Address: [address] [place] [address] Performed By: #### 5 8410-2 ####[facility] LABORATORYCLIA [id number] [address] [place] RBC (Bld) [#/Vol] 3.39 10*6/uL Low 4.20-6.00 [facility] Comment on above: Order Comment: Speci men Type: BLOOD SPECIMENOrdering Facility: [facility] Address: [address] Performed By: #### 5 8410-2 ####[facility] LABORATORYCLIA [id number] [address] WBC (Bld) [#/Vol] 9.81 10*3/uL Normal 3.70-11.00 [facility] Comment on above: Order Comment: Speci men Type: BLOOD SPECIMENOrdering Facility: [facility] Address: [address] [place], [place] [address] [address] Performed By: #### 5 8410-2 ####[facility] LABORATORYCLIA [id number] [address] OF [facility] CONSULTon 07-10-2021 CONSULT Normal [facility] CONSULT Normal [facility] Magnesium SerPl-mCncon 07-10 Magnesium [Mass/Vol] 1.9 mg/dL Normal 1.7-2.3 [facility] Comment on above: Order Comment: Speci men Type: BLOOD SPECIMENOrdering Facility: [facility] Address: [address] [place] [address] Performed By: #### 1 9123-9, 2777-1, 16940-5 ####[facility] LABORATORYCLIA [id number] [address] NURSING PROGon 07-10-2021 NURSING PROG Normal [facility] NURSING PROG Normal [facility] NUTRITIONon 07-10-2021 NUTRITION Normal [facility] Phosphate SerPl-mCncon 07-10 Phosphate [Mass/Vol] 3.6 mg/dL Normal 2.7-4.8 [facility] Comment on above: Order Comment: Speci men Type: BLOOD SPECIMENOrdering Facility: [facility] Address: [facility] [place] [address] Performed By: #### 1 9123-9, 2777-1, 48065-9 ####[facility] LABORATORYCLIA [id number] [place] [id number] [facility] [place] US DVT LOWER BILon 2 US DVT LOWER RAINER Normal [facility] aPTT PPPon 07-10-2021 aPTT Coag (PPP) [Time] 28.8 s Normal 23.0-32.4 [facility] Comment on above: Order Comment: Speci men Type: BLOOD SPECIMENOrdering Facility: [facility] Address: [address] [place] [address] Performed By: #### 1 4979-9 ####[facility] LABORATORYCLIA [id number] [address] [place] aPTT Coag (PPP) [Time] 28.4 s Normal 23.0-32.4 [facility] Comment on above: Order Comment: Speci men Type: BLOOD SPECIMENOrdering Facility: [facility] Address: [address] [place] [address] Performed By: #### 1 4979-9 ####[facility] LABORATORYCLIA [id number] [place] [address] [place] ALLIED HEALTHon 07-09-2021 ALLIED HEALTH Normal [facility] Basic metabolic 2000 panelon 07-09-2021 Anion gap [Moles/Vol] 9 mmol/L Normal 9-18 [facility] Comment on above: Order Comment: Speci men Type: BLOOD SPECIMENOrdering Facility: [facility] Address: [address] [place] [address] Performed By: #### 1 9123-9, 2777-1, 30935-4 ####[facility] LABORATORYCLIA [id number] [place] [address] [place] Calcium [Mass/Vol] 8.3 mg/dL Low 8.5-10.2 [facility] Comment on above: Order Comment: Speci men Type: BLOOD SPECIMENOrdering Facility: [facility] Address: [address] [place] [address] Performed By: #### 1 9123-9, 2777-1, 42230-8 ####[facility] LABORATORYCLIA [id number] [address] [place] Chloride [Moles/Vol] 100 mmol/L Normal 97-105 [facility] Comment on above: Order Comment: Speci men Type: BLOOD SPECIMENOrdering Facility: [facility] Address: [address] [place] [address] Performed By: #### 1 9123-9, 2777-1, 11838-1 ####[facility] LABORATORYCLIA [id number] [address] OF [facility] CO2 [Moles/Vol] 29 mmol/L Normal 22-30 [facility] Comment on above: Order Comment: Speci men Type: BLOOD SPECIMENOrdering Facility: [facility] Address: [address] [place] [address] Performed By: #### 1 9123-9, 2777-1, 06658-3 ####[facility] LABORATORYCLIA [id number] [address] Creatinine [Mass/Vol] 0.61 mg/dL Low 0.73-1.22 [facility] Comment on above: Order Comment: Speci men Type: BLOOD SPECIMENOrdering Facility: [facility] Address: [address] [place] [address] Performed By: #### 1 9123-9, 2777-, 48146-6 ####[facility] LABORATORYCLIA [id number] [address] ESTIMATED GLOMERULAR FILTRATION RATE 104 mL/min/1.73m??? Normal >=60 [facility] Comment on above: Order Comment: Speci men Type: BLOOD SPECIMENOrdering Facility: [facility] Address: [address] [place] [address] Result Comment: Luzmaria mated Glomerular Filtration Rate [...] GFR. Performed By: #### 1 9123-9, 2777-1, 31063-8 ####[facility] LABORATORYCLIA [id number] [place] [address] [place] Glucose [Mass/Vol] 106 mg/dL High 74-99 [facility] Comment on above: Order Comment: Speci men Type: BLOOD SPECIMENOrdering Facility: [facility] Address: [address] [place] [address] Result Comment: The [place] Diabetes Association (ADA) provides guidance for cutoff [...] Standards of Medical Care in Diabetes 2016, [place] Diabetes Association. Diabetes Care. 2016.39(Suppl 1). Performed By: #### 1 9123-9, 2777-, 11600-4 ####[facility] LABORATORYCLIA [id number] [place] [address] [place] Potassium [Moles/Vol] 3.6 mmol/L Low 3.7-5.1 [facility] Comment on above: Order Comment: Speci men Type: BLOOD SPECIMENOrdering Facility: [facility] Address: [address] [place] [address] Performed By: #### 1 9123-9, 2777-, 33501-9 ####[facility] LABORATORYCLIA [id number] [place] [address] [place] Sodium [Moles/Vol] 138 mmol/L Normal 136-144 [facility] Comment on above: Order Comment: Johni men Type: BLOOD SPECIMENOrdering Facility: [facility] Address: [address] [place] [address] Performed By: #### 1 9123-9, 2777-, 06232-5 ####[facility] LABORATORYCLIA [id number] [address] STATES [facility] Urea nitrogen [Mass/Vol] 12 mg/dL Normal 9-24 [facility] Comment on above: Order Comment: Speci men Type: BLOOD SPECIMENOrdering Facility: [facility] Address: [address] [place] [address] Performed By: #### 1 9123-9, 2777-, 22611-8 ####[facility] LABORATORYCLIA [id number] [address] STATES [facility] CBC panel Auto (Bld)on 07-09 Erythrocyte distribution width (RBC) [Ratio] 16.2 % High 11.5-15.0 [facility] Comment on above: Order Comment: Speci men Type: BLOOD SPECIMENOrdering Facility: [facility] Address: [address] [place] [address] Performed By: #### 5 8410-2 ####[facility] LABORATORYCLIA [id number] [address] STATES [facility] Hematocrit (Bld) [Volume fraction] 29.0 % Low 39.0-51.0 [facility] Comment on above: Order Comment: Speci men Type: BLOOD SPECIMENOrdering Facility: [facility] Address: [address] [place] [address] Performed By: #### 5 8410-2 ####[facility] LABORATORYCLIA [id number] [address] Hemoglobin (Bld) [Mass/Vol] 8.8 g/dL Low 13.0-17.0 [facility] Comment on above: Order Comment: Speci men Type: BLOOD SPECIMENOrdering Facility: [facility] Address: [address] [place] [address] Performed By: #### 5 8410-2 ####[facility] LABORATORYCLIA [id number] [address] [place] MCH (RBC) [Entitic mass] 27.0 pg Normal 26.0-34.0 [facility] Comment on above: Order Comment: Speci men Type: BLOOD SPECIMENOrdering Facility: [facility] Address: [address] [place] [address] Performed By: #### 5 8410-2 ####[facility] LABORATORYCLIA [id number] [place] [address] [place] MCHC (RBC) [Mass/Vol] 30.3 g/dL Low 30.5-36.0 [facility] Comment on above: Order Comment: Speci men Type: BLOOD SPECIMENOrdering Facility: [facility] Address: [address] [place] [address] Performed By: #### 5 8410-2 ####[facility] LABORATORYCLIA [id number] [address] [place] MCV (RBC) [Entitic vol] 89.0 fL Normal 80.0-100.0 [facility] Comment on above: Order Comment: Speci men Type: BLOOD SPECIMENOrdering Facility: [facility] Address: [address] [place] [address] Performed By: #### 5 8410-2 ####[facility] LABORATORYCLIA [id number] [address] [place] Nucleated RBC (Bld) [#/Vol] 10*3/uL Normal <0.01 [facility] Comment on above: Order Comment: Speci men Type: BLOOD SPECIMENOrdering Facility: [facility] Address: [address] [place] [address] Performed By: #### 5 8410-2 ####[facility] LABORATORYCLIA [id number] [address] [place] Platelet mean volume (Bld) [Entitic vol] 9.8 fL Normal 9.0-12.7 [facility] Comment on above: Order Comment: Speci men Type: BLOOD SPECIMENOrdering Facility: [facility] Address: [address] [place] [address] Performed By: #### 5 8410-2 ####[facility] LABORATORYCLIA [id number] [address] Platelets (Bld) [#/Vol] 281 10*3/uL Normal 150-400 [facility] Comment on above: Order Comment: Speci men Type: BLOOD SPECIMENOrdering Facility: [facility] Address: [address] [place] [address] Performed By: #### 5 8410-2 ####[facility] LABORATORYCLIA [id number] [address] [place] RBC (Bld) [#/Vol] 3.26 10*6/uL Low 4.20-6.00 [facility] Comment on above: Order Comment: Speci men Type: BLOOD SPECIMENOrdering Facility: [facility] Address: [address] [place] [address] Performed By: #### 5 8410-2 ####[facility] LABORATORYCLIA [id number] [address] WBC (Bld) [#/Vol] 9.12 10*3/uL Normal 3.70-11.00 [facility] Comment on above: Order Comment: Speci men Type: BLOOD SPECIMENOrdering Facility: [facility] Address: [address] [place] [address] Performed By: #### 5 8410-2 ####[facility] LABORATORYCLIA [id number] [address] CONSULT PROGon 07-09-2021 CONSULT PROG Normal [facility] CONSULT PROG Normal [facility] HISTORY PHYSICALon HISTORY PHYSICAL Normal [facility] Magnesium SerPl-mCncon 07-09 Magnesium [Mass/Vol] 1.9 mg/dL Normal 1.7-2.3 [facility] Comment on above: Order Comment: Speci men Type: BLOOD SPECIMENOrdering Facility: [facility] Address: [address] [place] [address] Performed By: #### 1 9123-9, 2777-1, 22618-5 ####[facility] LABORATORYCLIA [id number] [address] [place] Phosphate SerPl-mCncon 07-09 Phosphate [Mass/Vol] 3.6 mg/dL Normal 2.7-4.8 [facility] Comment on above: Order Comment: Speci men Type: BLOOD SPECIMENOrdering Facility: [facility] Address: [address] [place] [address] [place] [id number] Performed By: #### 1 9123-9, 2777-1, 71819-0 ####[facility] LABORATORYCLIA [id number] [address] THERAPY NTon 07-09-2021 THERAPY NT Normal [...] By: #### 6 00-7 ####[facility] LABORATORYCLIA [id number] [address] Bacteria identified Cx Nom (Bld) CULTURE, BLOOD: No growth 5 days Normal [facility] Comment on above: Performed By: #### 6 00-7 ####[facility] LABORATORYCLIA [id number] [address] OF [facility] Bacteria CSF Culton 07-09-19 22 Bacteria identified Cx Nom (CSF) CULTURE, CSF: No growth 14 days GRAM STAIN: No organisms seen No Polymorphonuclear Leukocytes Few Red Blood Cells Gram stain performed on cytospun specimen. Normal [facility] Comment on above: Performed By: #### 6 06-4 ####[facility] LABORATORYCLIA [id number] [address] Bacteria Ur Culton 2 Bacteria identified Cx Nom (U) ORGANISM ID: 1 10,000 -<50,000 CFU/ml Proteus species Insignificant colony count. No further workup. ORGANISM ID: 2 <10,000 CFU/ml Normal urogenital chris Normal [facility] Comment on above: Performed By: #### 6 30-4 ####[facility] LABORATORYCLIA [id number] [address] Bacteria Wnd Culton 07-09-19 22 Bacteria [...] By: #### 6 462-6 ####[facility] LABORATORYCLIA [id number] [address] Bacteria identified Cx Nom (Wound) ORGANISM ID: 1 Rare Coagulase negative staphylococcus No susceptibility testing done. Call lab within 72 hours to initiate work-up if clinically indicated. GRAM STAIN: Account credited. Not performed on this specimen type. Normal [facility] Comment on above: Performed By: #### 6 462-6 ####[facility] LABORATORYCLIA [id number] [address] Bacteria identified Cx Nom (Wound) CULTURE, INTRAOPERATIVE HARDWARE: No growth 14 days GRAM STAIN: Account credited. Not performed on this specimen type. Normal [facility] Comment on above: Performed By: #### 6 462-6 ####[facility] LABORATORYCLIA [id number] [address] Basic metabolic 2000 panelon 07-08-2021 Anion gap [Moles/Vol] 9 mmol/L Normal 9-18 [facility] Comment on above: Order Comment: Speci men Type: BLOOD SPECIMENOrdering Facility: [facility] Address: [address] [place] [address] Performed By: #### 2 4321-2 ####[facility]ORATORYCLIA [id number] [place] [address] [place] Calcium [Mass/Vol] 8.5 mg/dL Normal 8.5-10.2 [facility] Comment on above: Order Comment: Speci men Type: BLOOD SPECIMENOrdering Facility: [facility] Address: [address] [place] [address] Performed By: #### 2 4321-2 ####[facility] LABORATORYCLIA [id number] [address] [place] Chloride [Moles/Vol] 98 mmol/L Normal 97-105 [facility] Comment on above: Order Comment: Speci men Type: BLOOD SPECIMENOrdering Facility: [facility] Address: [address] [place] [address] Performed By: #### 2 4321-2 ####[facility] LABORATORYCLIA [id number] [address] [place] CO2 [Moles/Vol] 31 mmol/L High 22-30 [facility] Comment on above: Order Comment: Speci men Type: BLOOD SPECIMENOrdering Facility: [facility] Address: [address] [place] [address] Performed By: #### 2 4321-2 ####[facility] LABORATORYCLIA [id number] [address] [place] Creatinine [Mass/Vol] 0.64 mg/dL Low 0.73-1.22 [facility] Comment on above: Order Comment: Speci men Type: BLOOD SPECIMENOrdering Facility: [facility] Address: [address] [place] [address] Performed By: #### 2 4321-2 ####[facility] LABORATORYCLIA [id number] [address] ESTIMATED GLOMERULAR FILTRATION RATE 102 mL/min/1.73m??? Normal >=60 [facility] Comment on above: Order Comment: Shira feldman Type: BLOOD SPECIMENOrdering Facility: [facility] Address: [address] Result Comment: Luzmaria mated Glomerular Filtration [...] By: #### 2 4321-2 ####[facility] LABORATORYCLIA [id number] [place] [address] [place] Glucose [Mass/Vol] 114 mg/dL High 74-99 [facility] Comment on above: Order Comment: Shira feldman Type: BLOOD SPECIMENOrdering Facility: [facility] Address: [address] [place] [address] Result Comment: The [place] Diabetes Association (ADA) provides guidance for cutoff [...] Standards of Medical Care in Diabetes 2016, [place] Diabetes Association. Diabetes Care. 2016.39(Suppl 1). Performed By: #### 2 4321-2 ####[facility] LABORATORYCLIA [id number] [place] [address] [place] Potassium [Moles/Vol] 3.4 mmol/L Low 3.7-5.1 [facility] Comment on above: Order Comment: Shira feldman Type: BLOOD SPECIMENOrdering Facility: [facility] Address: [address] [address] Performed By: #### 2 4321-2 ####[facility] LABORATORYCLIA [id number] [address] STATES [facility] Sodium [Moles/Vol] 138 mmol/L Normal 136-144 [facility] Comment on above: Order Comment: Speci men Type: BLOOD SPECIMENOrdering Facility: [facility] Address: [address] [place] [address] Performed By: #### 2 4321-2 ####[facility] LABORATORYCLIA [id number] [address] STATES OF [facility] Urea nitrogen [Mass/Vol] 14 mg/dL Normal 9-24 [facility] Comment on above: Order Comment: Speci men Type: BLOOD SPECIMENOrdering Facility: [facility] Address: [address] [place] [address] Performed By: #### 2 4321-2 ####[facility] LABORATORYCLIA [id number] [address] CBC W Auto Differential pane l (Bld)on 07-08-2021 Basophils (Bld) [#/Vol] 0.05 10*3/uL Normal <0.11 [facility] Comment on above: Order Comment: Speci men Type: BLOOD SPECIMENOrdering Facility: [facility] Address: [address] [place] [address] Performed By: #### 5 7021-8 ####[facility] LABORATORYCLIA [id number] [address] STATES [facility] Basophils/100 WBC (Bld) 0.4 % Normal [facility] Comment on above: Order Comment: Speci men Type: BLOOD SPECIMENOrdering Facility: [facility] Address: [address] [place] [address] Performed By: #### 5 7021-8 ####[facility] LABORATORYCLIA [id number] [address] Differential cell count method Nom (Bld) Auto Normal [facility] Comment on above: Order Comment: Speci men Type: BLOOD SPECIMENOrdering Facility: [facility] Address: [address] [address] Performed By: #### 5 7021-8 ####[facility] LABORATORYCLIA [id number] [address] [place] Eosinophils (Bld) [#/Vol] 0.68 10*3/uL High <0.46 [facility] Comment on above: Order Comment: Speci men Type: BLOOD SPECIMENOrdering Facility: [facility] Address: [address] [place] [address] Performed By: #### 5 7021-8 ####[facility] LABORATORYCLIA [id number] [address] Eosinophils/100 WBC (Bld) 5.4 % Normal [facility] Comment on above: Order Comment: Speci men Type: BLOOD SPECIMENOrdering Facility: [facility] Address: [address] [place] [address] Performed By: #### 5 7021-8 ####[facility] LABORATORYCLIA [id number] [address] STATES [facility] Erythrocyte distribution width (RBC) [Ratio] 16.3 % High 11.5-15.0 [facility] Comment on above: Order Comment: Speci men Type: BLOOD SPECIMENOrdering Facility: [facility] Address: [address] [place] [address] Performed By: #### 5 7021-8 ####[facility] LABORATORYCLIA [id number] [address] Hematocrit (Bld) [Volume fraction] 35.7 % Low 39.0-51.0 [facility] Comment on above: Order Comment: Speci men Type: BLOOD SPECIMENOrdering Facility: [facility] Address: [address] [place] [address] Performed By: #### 5 7021-8 ####[facility] LABORATORYCLIA [id number] [place] [address] [place] Hemoglobin (Bld) [Mass/Vol] 10.8 g/dL Low 13.0-17.0 [facility] Comment on above: Order Comment: Speci men Type: BLOOD SPECIMENOrdering Facility: [facility] Address: [address] [place] [address] Performed By: #### 5 7021-8 ####[facility]ORATORYCLIA [id number] [address] [place] IMMATURE GRAN % 0.4 % Normal [facility] Comment on above: Order Comment: Speci men Type: BLOOD SPECIMENOrdering Facility: [facility] Address: [address] [place] [address] Performed By: #### 5 7021-8 ####[facility] LABORATORYCLIA [id number] [address] OF [facility] IMMATURE GRAN ABS 0.05 k/uL Normal <0.10 [facility] Comment on above: Order Comment: Speci men Type: BLOOD SPECIMENOrdering Facility: [facility] Address: [address] [place] [address] Performed By: #### 5 7021-8 ####[facility]ORATORYCLIA [id number] [address] [place] Lymphocytes (Bld) [#/Vol] 1.85 10*3/uL Normal 1.00-4.00 [facility] Comment on above: Order Comment: Speci men Type: BLOOD SPECIMENOrdering Facility: [facility] Address: [address] [place] [address] Performed By: #### 5 7021-8 ####[facility] LABORATORYCLIA [id number] [address] [place] Lymphocytes/100 WBC (Bld) 14.7 % Normal [facility] Comment on above: Order Comment: Speci men Type: BLOOD SPECIMENOrdering Facility: [facility] Address: [address] [place] [address] Performed By: #### 5 7021-8 ####[facility]ORATORYCLIA [id number] [address] MCH (RBC) [Entitic mass] 27.1 pg Normal 26.0-34.0 [facility] Comment on above: Order Comment: Speci men Type: BLOOD SPECIMENOrdering Facility: [facility] Address: [address] [place] [address] Performed By: #### 5 7021-8 ####[facility] LABORATORYCLIA [id number] [address] [place] MCHC (RBC) [Mass/Vol] 30.3 g/dL Low 30.5-36.0 [facility] Comment on above: Order Comment: Speci men Type: BLOOD SPECIMENOrdering Facility: [facility] Address: [address] [place] [address] Performed By: #### 5 7021-8 ####[facility] LABORATORYCLIA [id number] [address] STATES OF [facility] MCV (RBC) [Entitic vol] 89.7 fL Normal 80.0-100.0 [facility] Comment on above: Order Comment: Speci men Type: BLOOD SPECIMENOrdering Facility: [facility] Address: [address] [place] [address] Performed By: #### 5 7021-8 ####[facility] LABORATORYCLIA [id number] [address] [place] Monocytes (Bld) [#/Vol] 0.87 10*3/uL High <0.87 [facility] Comment on above: Order Comment: Speci men Type: BLOOD SPECIMENOrdering Facility: [facility] Address: [address] [place] [address] Performed By: #### 5 7021-8 ####[facility] LABORATORYCLIA [id number] [address] Monocytes/100 WBC (Bld) 6.9 % Normal [facility] Comment on above: Order Comment: Speci men Type: BLOOD SPECIMENOrdering Facility: [facility] Address: [address] [address] Performed By: #### 5 7021-8 ####[facility] LABORATORYCLIA [id number] [address] [place] Neutrophils (Bld) [#/Vol] 9.05 10*3/uL High 1.45-7.50 [facility] Comment on above: Order Comment: Speci men Type: BLOOD SPECIMENOrdering Facility: [facility] Address: [address] [place] [address] Performed By: #### 5 7021-8 ####[facility] LABORATORYCLIA [id number] [address] STATES [facility] Neutrophils/100 WBC (Bld) 72.2 % Normal [facility] Comment on above: Order Comment: Speci men Type: BLOOD SPECIMENOrdering Facility: [facility] Address: [address] [place] [address] Performed By: #### 5 7021-8 ####[facility] LABORATORYCLIA [id number] [address] [place] Nucleated RBC (Bld) [#/Vol] 10*3/uL Normal <0.01 [facility] Comment on above: Order Comment: Speci men Type: BLOOD SPECIMENOrdering Facility: [facility] Address: [address] [place] [address] Performed By: #### 5 7021-8 ####[facility] LABORATORYCLIA [id number] [address] [place] Nucleated RBC/100 WBC (Bld) [Ratio] 0.0 /100 WBC Normal [facility] Comment on above: Order Comment: Speci men Type: BLOOD SPECIMENOrdering Facility: [facility] Address: [address] [place] [address] Performed By: #### 5 7021-8 ####[facility] LABORATORYCLIA [id number] [address] [place] Platelet mean volume (Bld) [Entitic vol] 9.9 fL Normal 9.0-12.7 [facility] Comment on above: Order Comment: Speci men Type: BLOOD SPECIMENOrdering Facility: [facility] Address: [address] [place] [address] Performed By: #### 5 7021-8 ####[facility] LABORATORYCLIA [id number] [address] OF [facility] Platelets (Bld) [#/Vol] 335 10*3/uL Normal 150-400 [facility] Comment on above: Order Comment: Speci men Type: BLOOD SPECIMENOrdering Facility: [facility] Address: [address] [place] [address] Performed By: #### 5 7021-8 ####[facility] LABORATORYCLIA [id number] [address] STATES OF [facility] RBC (Bld) [#/Vol] 3.98 10*6/uL Low 4.20-6.00 [facility] Comment on above: Order Comment: Speci men Type: BLOOD SPECIMENOrdering Facility: [facility] Address: [address] [place] [address] Performed By: #### 5 7021-8 ####[facility] LABORATORYCLIA [id number] [address] OF [facility] WBC (Bld) [#/Vol] 12.55 10*3/uL High 3.70-11.00 [facility] Comment on above: Order Comment: Speci men Type: BLOOD SPECIMENOrdering Facility: [facility] Address: [address] [place] [address] Performed By: #### 5 7021-8 ####[facility] LABORATORYCLIA [id number] [address] CK CREATINE KINASEon 022 CK [Catalytic activity/Vol] 72 U/L Normal 51-298 [facility] Comment on above: Order Comment: Speci men Type: BLOOD SPECIMENOrdering Facility: [facility] Address: [address] [place] [address] Performed By: #### C K, 52993-8 ####[facility] LABORATORYCLIA [id number] [address] STATES OF [facility] CONSULT PROGon 07-08-2021 CONSULT PROG Normal [facility] CONSULT PROG Normal [facility] CSF MANUAL DIFFon 07-08-2021 DIF TTL, CSF 3 cells counted Normal [facility] Comment on above: Order Comment: Speci men Type: CEREBROSPINAL FLUIDOrdering Facility: [facility] Address: [address] [place] [address] Performed By: #### 3 4563-7, [id number] ####[facility] LABORATORYCLIA [id number] [place] [address] [place] LYMPH%, CSF 33 % Low 50-90 [facility] Comment on above: Order Comment: Speci men Type: CEREBROSPINAL FLUIDOrdering Facility: [facility] Address: [address] [place] [address] Performed By: #### 3 4563-7, [id number] ####[facility] LABORATORYCLIA [id number] [address] [place] MONO%, CSF 67 % High 10-50 [facility] Comment on above: Order Comment: Speci men Type: CEREBROSPINAL FLUIDOrdering Facility: [facility] Address: [address] [place] [address] Performed By: #### 3 4563-7, [id number] ####[facility] LABORATORYCLIA [id number] [address] [place] CT ABD/PEL W IVCONon [...] Comment: Speci men Type: CEREBROSPINAL FLUIDOrdering Facility: [facility] Address: [address] [place] [address] Performed By: #### 3 4563-7, [id number] ####[facility]ORATORYCLIA [id number] [address] [place] Clarity (Unsp spec) Clear Normal Clear [facility] Comment on above: Order Comment: Speci men Type: CEREBROSPINAL FLUIDOrdering Facility: [facility] Address: [address] [place] [address] Performed By: #### 3 4563-7, [id number] ####[facility]ATORYCLIA [id number] [address] Color (CSF) Colorless Normal Colorless [facility] Comment on above: Order Comment: Speci men Type: CEREBROSPINAL FLUIDOrdering Facility: [facility] Address: [address] [place] [address] Performed By: #### 3 4563-7, [id number] ####[facility] LABORATORYCLIA [id number] [address] Color (Spun CSF) Colorless Normal Colorless [facility] Comment on above: Order Comment: Speci men Type: CEREBROSPINAL FLUIDOrdering Facility: [facility] Address: [address] [place] [address] Performed By: #### 3 4563-7, [id number] ####[facility]ORYCLIA [id number] [address] CSF TUBE [employer] Normal [facility] Comment on above: Order Comment: Speci men Type: CEREBROSPINAL FLUIDOrdering Facility: [facility] Address: [address] [place] [address] Performed By: #### 3 4563-7, [id number] ####[facility]ATORYCLIA [id number] [address] [place] RBC Manual cnt (CSF) [#/Vol] 94 cells/uL High 0-5 [facility] Comment on above: Order Comment: Speci men Type: CEREBROSPINAL FLUIDOrdering Facility: [facility] Address: [address] [place] [address] Performed By: #### 3 4563-7, [id number] ####[facility] LABORATORYCLIA [id number] [address] WBC Manual cnt (CSF) [#/Vol] 1 cells/uL Normal 0-5 [facility] Comment on above: Order Comment: Speci men Type: CEREBROSPINAL FLUIDOrdering Facility: [facility] Address: [address] [place] [address] Performed By: #### 3 4563-7, [id number] ####[facility] LABORATORYCLIA [id number] [address] Comprehensive metabolic 2000 panelon 07-08-2021 Albumin [Mass/Vol] 3.6 g/dL Low 3.9-4.9 [facility] Comment on above: Order Comment: Speci men Type: BLOOD SPECIMENOrdering Facility: [facility] Address: [address] [place] [address] Performed By: #### Eileen Valdivia, 49123-6 ####[facility] LABORATORYCLIA [id number] [address] STATES OF [facility] ALP [Catalytic activity/Vol] 125 U/L High 38-113 [facility] Comment on above: Order Comment: Speci men Type: BLOOD SPECIMENOrdering Facility: [facility] Address: [address] [place] [address] Performed By: #### Eileen Valdivia, 92940-9 ####[facility] LABORATORYCLIA [id number] [address] [place] ALT With P-5'-P [Catalytic activity/Vol] 24 U/L Normal 10-54 [facility] Comment on above: Order Comment: Speci men Type: BLOOD SPECIMENOrdering Facility: [facility] Address: [address] [place] [address] Performed By: #### Eileen Valdivia, 91099-0 ####[facility]ORATORYCLIA [id number] [place] [address] [place] Anion gap [Moles/Vol] 16 mmol/L Normal 9-18 [facility] Comment on above: Order Comment: Speci men Type: BLOOD SPECIMENOrdering Facility: [facility] Address: [address] [place] [address] Performed By: #### Eileen Valdivia, 34067-6 ####[facility]ATORYCLIA [id number] [place] [address] [place] AST With P-5'-P [Catalytic activity/Vol] 21 U/L Normal 14-40 [facility] Comment on above: Order Comment: Speci men Type: BLOOD SPECIMENOrdering Facility: [facility] Address: [address] [place] [address] Performed By: #### Eileen Valdivia, 37182-9 ####[facility] LABORATORYCLIA [id number] [place] [address] [place] Bilirubin [Mass/Vol] 0.3 mg/dL Normal 0.2-1.3 [facility] Comment on above: Order Comment: Speci men Type: BLOOD SPECIMENOrdering Facility: [facility] Address: [address] [place] [address] Performed By: #### Eileen Valdivia, 54241-7 ####[facility] LABORATORYCLIA [id number] [address] [place] Calcium [Mass/Vol] 8.9 mg/dL Normal 8.5-10.2 [facility] Comment on above: Order Comment: Speci men Type: BLOOD SPECIMENOrdering Facility: [facility] Address: [address] [place] [address] Performed By: #### Eileen Valdivia, 30378-8 ####[facility]ATORYCLIA [id number] [place] [address] [place] Chloride [Moles/Vol] 96 mmol/L Low 97-105 [facility] Comment on above: Order Comment: Speci men Type: BLOOD SPECIMENOrdering Facility: [facility] Address: [address] [place] [address] Performed By: #### Eileen Valdivia, 32615-9 ####[facility] LABORATORYCLIA [id number] [place] [address] [place] CO2 [Moles/Vol] 27 mmol/L Normal 22-30 [facility] Comment on above: Order Comment: Speci men Type: BLOOD SPECIMENOrdering Facility: [facility] Address: [address] [place] [address] Performed By: #### Eileen Valdivia, 88550-1 ####[facility] LABORATORYCLIA [id number] [address] STATES [place] [facility] Creatinine [Mass/Vol] 0.68 mg/dL Low 0.73-1.22 [facility] Comment on above: Order Comment: Speci men Type: BLOOD SPECIMENOrdering Facility: [facility] Address: [address] [place] [address] Performed By: #### Eileen Valdivia, 26264-0 ####[facility] LABORATORYCLIA [id number] [address] STATES [place] [facility] ESTIMATED GLOMERULAR FILTRATION RATE 101 mL/min/1.73m??? Normal >=60 [facility] Comment on above: Order Comment: Speci men Type: BLOOD SPECIMENOrdering Facility: [facility] Address: [address] [place] [address] Result Comment: Luzmaria mated Glomerular Filtration Rate [...] actual GFR. Performed By: #### C K, 41473-4 ####[facility] LABORATORYCLIA [id number] [address] [place] Glucose [Mass/Vol] 130 mg/dL High 74-99 [facility] Comment on above: Order Comment: Speci men Type: BLOOD SPECIMENOrdering Facility: [facility] Address: [address] [place], [place] [address] Result Comment: The [place] Diabetes Association (ADA) provides guidance for cutoff [...] Standards of Medical Care in Diabetes 2016, [place] Diabetes Association. Diabetes Care. 2016.39(Suppl 1). Performed By: #### Eileen Valdivia, 47741-8 ####[facility] LABORATORYCLIA [id number] [place] [address] [place] Potassium [Moles/Vol] 3.9 mmol/L Normal 3.7-5.1 [facility] Comment on above: Order Comment: Shira feldman Type: BLOOD SPECIMENOrdering Facility: [facility] Address: [address] [place], [place] [address] Performed By: #### Eileen Valdivia, 81165-8 ####[facility] LABORATORYCLIA [id number] [place] [address] [place] Protein [Mass/Vol] 7.0 g/dL Normal 6.3-8.0 [facility] Comment on above: Order Comment: Shira feldman Type: BLOOD SPECIMENOrdering Facility: [facility] Address: [address] [id number] Performed By: #### Eileen Valdivia, 74698-2 ####[facility] LABORATORYCLIA [id number] [place] [address] [place] Sodium [Moles/Vol] 139 mmol/L Normal 136-144 [facility] Comment on above: Order Comment: Johni men Type: BLOOD SPECIMENOrdering Facility: [facility] Address: [address] [place] [address] Performed By: #### Eileen Valdivia, 98539-0 ####[facility]ATORYCLIA [id number] [address] Urea nitrogen [Mass/Vol] 16 mg/dL Normal 9-24 [facility] Comment on above: Order Comment: Speci men Type: BLOOD SPECIMENOrdering Facility: [facility] Address: [address] [place] [address] Performed By: #### Eileen Valdivia, 52091-5 ####[facility]ORATORYCLIA [id number] [place] [id number] [facility] ED NOTEon 07-08-2021 ED NOTE HNO ID: [id number] Author: Lenora James RN Service: Emergency Medicine Author Type: Registered Nurse Type: ED Notes Filed: 07/08/2021 5:03 PM Note Text: Pt to OR with surgical team [facility] ED NOTE HNO ID: [id number] Author: Lenora James RN Service: Emergency Medicine Author Type: Registered Nurse Type: ED Notes Filed: 07/08/2021 4:50 PM Note Text: OR team to get pt [facility] ED NOTE HNO ID: [id number] Author: Lenora James RN Service: Emergency Medicine Author Type: Registered Nurse Type: ED Notes Filed: 07/08/2021 4:50 PM Note Text: Normal [facility] ED NOTE HNO ID: [id number] Author: Lenora James RN Service: Emergency Medicine Author Type: Registered Nurse Type: ED Notes Filed: 07/08/2021 4:50 PM Note Text: Spoke with presurg; pt to go to OR now [facility] ED NOTE HNO ID: [id number] Author: Lenora James RN Service: Emergency Medicine Author Type: Registered Nurse Type: ED Notes Filed: 07/08/2021 4:12 PM Note Text: Neurosurgery at beside [facility] ED NOTE HNO ID: [id number] Author: Lenora James RN Service: Emergency Medicine Author Type: Registered Nurse Type: ED Notes Filed: 07/08/2021 2:35 PM Note Text: respiratory aware of pt breathing treatments Normal [facility] ED NOTE HNO ID: [id number] Author: Lisa Woo RN Service: ? Author Type: Registered Nurse Type: ED Notes Filed: 07/08/2021 2:20 PM Note Text: Xray notified pt is ready. Normal [facility] ED NOTE HNO ID: [id number] Author: Lenora James RN Service: Emergency Medicine Author Type: Registered Nurse Type: ED Notes Filed: 07/08/2021 12:14 PM Note Text: CT notified regarding imaging orders placed Normal [facility] ED NOTE Normal [facility] ED PROV NOTEon 07-08-2021 ED PROV NOTE Normal [facility] Glucose CSF-mCncon 2 Glucose (CSF) [Mass/Vol] 88 mg/dL High 40-70 [facility] Comment on above: Order Comment: Speci men Type: CEREBROSPINAL FLUIDOrdering Facility: [facility] Address: [address] [place] [address] Result Comment: Lumb ar CSF glucose values of healthy patients are approximately 60% of the plasma values and must always be compared with a concurrently measured plasma value for adequate clinical interpretation.References: 1. Glucose HK (GLUC3) [package insert V 12.0 Cymraes]. [employer], [place], [place]. September 2015. 2. Michelle Moore, Loki, H. (2015). Chapter 7: Glucose and Lactate. FGarfield Alcocer al.(eds.), Cerebrospinal Fluid in Clinical Neurology. Saunders: [employer]. Performed By: #### 2 880-3, 2342-4 ####[facility] LABORATORYCLIA [id number] [place] [address] [place] HIGH SENSITIVITY TROPONIN To n 07-08-2021 HIGH SENSITIVITY TAMIKO 27 ng/L High <12 [facility] Comment on above: Order Comment: Speci men Type: BLOOD SPECIMENOrdering Facility: [facility] Address: [address] [place] [address] Result Comment: When assessing risk for acute [...] By: #### H STNT ####[facility] LABORATORYCLIA [id number] [address] HIGH SENSITIVITY TAMKIO 36 ng/L High <12 [facility] Comment on above: Order Comment: Speci men Type: BLOOD SPECIMENOrdering Facility: [facility] Address: [address] [place] [address] Result Comment: When assessing risk for acute [...] By: #### H STNT ####[facility] LABORATORYCLIA [id number] [address] OF [facility] HISTORY PHYSICALon HISTORY PHYSICAL Normal [facility] NURSING PROGon 07-08-2021 NURSING PROG Normal [facility] OPERATIVE NOon 07-08-2021 OPERATIVE NO Normal [facility] Prot CSF-mCncon 07-08-2021 Protein (CSF) [Mass/Vol] 33 mg/dL Normal 15-45 [facility] Comment on above: Order Comment: Speci men Type: CEREBROSPINAL FLUIDOrdering Facility: [facility] Address: [address] [place] [address] Performed By: #### 2 880-3, 2342-4 ####[facility] LABORATORYCLIA [id number] [place] [address] [place] SARS-CoV-2 RNA Resp Ql MEGAN+p robeon 07-08-2021 SARS-CoV-2 (COVID-19) RNA MEGAN+probe Ql (Resp) COVID 19 RESULT: SARS-CoV-2 (Agent of COVID-19) Not Detected by RT-PCR or equivalent method. This test has been authorized by FDA under an Emergency Use Authorization (EUA). Normal [facility] Comment on above: Performed By: #### 9 4500-6 ####[facility] LABORATORYCLIA [id number] [address] STAPH AUREUS PCRon 2 S. aureus and MRSA panel MEGAN+probe (Nose) Normal Negative [facility] Comment on above: Order Comment: Speci men Type: SWAB OF INTERNAL NOSEOrdering Facility: [facility] Address: [address] [place] [address] Result Comment: Nega tive for Staphylococcus aureus by PCR.Negative for MRSA by PCR Performed By: #### S APCR ####[facility] LABORATORYCLIA [id number] [address] Urinalysis complete panel (U )on 07-08-2021 Bacteria LM.HPF (Urine sed) [#/Area] Few Abnormal None Seen [facility] Comment on above: Order Comment: Speci men Type: URINE SPECIMENOrdering Facility: [facility] Address: [address] [place] [address] Performed By: #### 2 4356-8 ####[facility] LABORATORYCLIA [id number] [address] STATES [facility] Bilirubin Ql (U) Negative Normal Negative [facility] Comment on above: Order Comment: Speci men Type: URINE SPECIMENOrdering Facility: [facility] Address: [address] [place] [address] Performed By: #### 2 4356-8 ####[facility] LABORATORYCLIA [id number] [address] Clarity (Unsp spec) Turbid Abnormal Clear [facility] Comment on above: Order Comment: Speci men Type: URINE SPECIMENOrdering Facility: [facility] Address: [address] [place] [address] Performed By: #### 2 4356-8 ####[facility] LABORATORYCLIA [id number] [address] Color (U) Light Yellow Normal yellow [facility] Comment on above: Order Comment: Speci men Type: URINE SPECIMENOrdering Facility: [facility] Address: [address] [place] [address] Performed By: #### 2 4356-8 ####[facility] LABORATORYCLIA [id number] [address] Glucose Test strip (U) [Mass/Vol] Negative Normal Negative [facility] Comment on above: Order Comment: Speci men Type: URINE SPECIMENOrdering Facility: [facility] Address: [address] [place] [address] Performed By: #### 2 4356-8 ####[facility] LABORATORYCLIA [id number] [address] Hemoglobin Ql (U) Negative Normal Negative [facility] [facility] Comment on above: Order Comment: Speci men Type: URINE SPECIMENOrdering Facility: [facility] Address: [address] [place] [address] Performed By: #### 2 4356-8 ####[facility] LABORATORYCLIA [id number] [address] Hyaline casts (Urine sed) [#/Area] 1-3 /LPF Abnormal 0 /LPF [facility] Comment on above: Order Comment: Speci men Type: URINE SPECIMENOrdering Facility: [facility] Address: [address] [place] [address] Performed By: #### 2 4356-8 ####[facility] LABORATORYCLIA [id number] [address] Ketones Ql (U) Negative Normal Negative [facility] Comment on above: Order Comment: Speci men Type: URINE SPECIMENOrdering Facility: [facility] Address: [address] [place] [address] Performed By: #### 2 4356-8 ####[facility] LABORATORYCLIA [id number] [address] Leukocyte esterase Test strip Ql (U) Negative Normal Negative [facility] Comment on above: Order Comment: Speci men Type: URINE SPECIMENOrdering Facility: [facility] Address: [address] [place] [address] Performed By: #### 2 4356-8 ####[facility] LABORATORYCLIA [id number] [address] Nitrite Ql (U) Negative Normal Negative [facility] Comment on above: Order Comment: Speci men Type: URINE SPECIMENOrdering Facility: [facility] Address: [address] [place] [address] Performed By: #### 2 4356-8 ####[facility] LABORATORYCLIA [id number] [address] pH (U) 5.0 [pH] Normal 5.0-8.0 [facility] Comment on above: Order Comment: Speci men Type: URINE SPECIMENOrdering Facility: [facility] Address: [address] [place] [address] Performed By: #### 2 4356-8 ####[facility] LABORATORYCLIA [id number] [address] Protein (U) [Mass/Vol] Negative Normal Negative [facility] Comment on above: Order Comment: Speci men Type: URINE SPECIMENOrdering Facility: [facility] Address: [address] [place] [address] Performed By: #### 2 4356-8 ####[facility] LABORATORYCLIA [id number] [address] RBC LM.HPF (Urine sed) [#/Area] 11-25 /HPF Abnormal 0-3 /HPF [facility] Comment on above: Order Comment: Speci men Type: URINE SPECIMENOrdering Facility: [facility] Address: [address] [place] [address] Performed By: #### 2 4356-8 ####[facility] LABORATORYCLIA [id number] [address] Specific gravity (U) [Rel density] 1.018 Normal 1.005-1.030 [facility] Comment on above: Order Comment: Speci men Type: URINE SPECIMENOrdering Facility: [facility] Address: [address] [place] [address] Performed By: #### 2 4356-8 ####[facility] LABORATORYCLIA [id number] [address] Urobilinogen Ql (U) Normal Normal Negative [facility] Comment on above: Order Comment: Speci men Type: URINE SPECIMENOrdering Facility: [facility] Address: [address] [place] [address] Performed By: #### 2 4356-8 ####[facility]ITALCL[facility] [id number] [address] WBC LM.HPF (Urine sed) [#/Area] /[HPF] Abnormal 0-5 /HPF [facility] Comment on above: Order Comment: Speci men Type: URINE SPECIMENOrdering Facility: [facility] Address: [address] [place] [address] Performed By: #### 2 4356-8 ####[facility]PITALCLIA [id number] [address] Vancomycin random [Mass/Vol] on 07-08-2021 Vancomycin [Mass/Vol] 31.0 ug/mL High 10.0-20.0 [facility] Comment on above: Order Comment: Speci men Type: BLOOD SPECIMENOrdering Facility: [facility] Address: [address] [place] [address] Result Comment: Refe rence ranges and high/low indicator flags are provided as general guidelines only. The treating physician must determine appropriate target levels/dosing based on the specific clinical situation. Performed By: #### 4 091-5 ####[facility] LABORATORYCLIA [id number] [place] [address] [place] XR ABD 2V [...] Hospital HISTORY PHYSICALon HISTORY PHYSICAL HNO ID: [id number] Author: Amy Beltran MD Service: ? Author Type: Physician Type: HANDP Filed: 06/30/2021 6:42 PM Note Text: Connected Care Unit History and Physical Facility: [place] [facility] Level of Care: Skilled Admission Date: June [...] regarding the above plan. Total time spent hvsd-[id number] and/or counseling and coordinating care on the skilled care unit for patient was approximately 45 minutes SUBJECTIVE (HISTORY) Chief Complaint: Confusion, infection, blood clot. Andrew Sifuentes is being seen today for long term facility (SNF) admission AND management of weakness, tube feed, infected retroperitoneal infection and seizure. HPI: This is a 71 year old male who presents from [facility] with primary admitting diagnosis of Seizure, [...] CT brain concerning for hydrocephalus. Tip of [employer] shunt was found to be in the [...] Status: Fu (more content not included)... Normal [facility] Basic metabolic 2000 panelon 06-28-2021 Anion gap [Moles/Vol] 7 mmol/L Low 9-18 [facility] Comment on above: Order Comment: Shira feldman Type: BLOOD SPECIMENOrdering Facility: [facility] Address: [address] [place] [address] Performed By: #### 2 432 ####[facility] LABORATORYCLIA [id number] [place] [address] [place] Calcium [Mass/Vol] 8.8 mg/dL Normal 8.5-10.2 [facility] Comment on above: Order Comment: Shira feldman Type: BLOOD SPECIMENOrdering Facility: [facility] Address: [address] [address] Performed By: #### 2 432- ####[facility] LABORATORYCLIA [id number] [address] OF [facility] Chloride [Moles/Vol] 103 mmol/L Normal 97-105 [facility] Comment on above: Order Comment: Speci men Type: BLOOD SPECIMENOrdering Facility: [facility] Address: [address] [place] [address] Performed By: #### 2 4321-2, ####[facility] LABORATORYCLIA [id number] [address] [place] CO2 [Moles/Vol] 28 mmol/L Normal 22-30 [facility] Comment on above: Order Comment: Speci men Type: BLOOD SPECIMENOrdering Facility: [facility] Address: [address] [place] [address] Performed By: #### 2 4321-2, ####[facility] LABORATORYCLIA [id number] [address] STATES OF [facility] Creatinine [Mass/Vol] 0.57 mg/dL Low 0.73-1.22 [facility] Comment on above: Order Comment: Speci men Type: BLOOD SPECIMENOrdering Facility: [facility] Address: [address] [place] [address] Performed By: #### 2 4321-2, ####[facility] LABORATORYCLIA [id number] [address] [place] GFR/1.73 sq M.predicted MDRD (S/P/Bld) [Vol rate/Area] mL/min/{1.73_m2} Normal [facility] Comment on above: Order Comment: Speci men Type: BLOOD SPECIMENOrdering Facility: [facility] Address: [address] [place] [address] Result Comment: >60e GFR (Estimated GFR) Units [...] By: #### 2 432-, ####[facility] LABORATORYCLIA [id number] [place] [address] [place] Glucose [Mass/Vol] 120 mg/dL High 74-99 [facility] Comment on above: Order Comment: Shira feldman Type: BLOOD SPECIMENOrdering Facility: [facility] Address: [address] [id number] Result Comment: The [place] Diabetes Association (ADA) provides guidance for cutoff [...] Standards of Medical Care in Diabetes 2016, [place] Diabetes Association. Diabetes Care. 2016.39(Suppl 1). Performed By: #### 2 432-, ####[facility] LABORATORYCLIA [id number] [place] [address] [place] Potassium [Moles/Vol] 3.8 mmol/L Normal 3.7-5.1 [facility] Comment on above: Order Comment: Shira feldman Type: BLOOD SPECIMENOrdering Facility: [facility] Address: [address] [place] [address] Performed By: #### 2 432-, ####[facility] LABORATORYCLIA [id number] [place] [address] [place] Sodium [Moles/Vol] 138 mmol/L Normal 136-144 [facility] Comment on above: Order Comment: Shira feldman Type: BLOOD SPECIMENOrdering Facility: [facility] Address: [address] [place] [address] Performed By: #### 2 4321-2, ####[facility] LABORATORYCLIA [id number] [address] Urea nitrogen [Mass/Vol] 24 mg/dL Normal 9-24 [facility] Comment on above: Order Comment: Speci men Type: BLOOD SPECIMENOrdering Facility: [facility] Address: [address] [place] [address] Performed By: #### 2 4321-2, ####[facility] LABORATORYCLIA [id number] [address] CASE MANAGEMon 06-28-2021 CASE MANAGEM Normal [facility] CBC panel Auto (Bld)on 06-28 Erythrocyte distribution width (RBC) [Ratio] 15.6 % High 11.5-15.0 [facility] Comment on above: Order Comment: Speci men Type: BLOOD SPECIMENOrdering Facility: [facility] Address: [address] [place] [address] Performed By: #### 5 8410-2 ####[facility] LABORATORYCLIA [id number] [address] STATES [facility] Hematocrit (Bld) [Volume fraction] 30.5 % Low 39.0-51.0 [facility] Comment on above: Order Comment: Speci men Type: BLOOD SPECIMENOrdering Facility: [facility] Address: [address] [place] [address] Performed By: #### 5 8410-2 ####[facility] LABORATORYCLIA [id number] [address] [place] Hemoglobin (Bld) [Mass/Vol] 9.4 g/dL Low 13.0-17.0 [facility] Comment on above: Order Comment: Speci men Type: BLOOD SPECIMENOrdering Facility: [facility] Address: [address] [place] [address] Performed By: #### 5 8410-2 ####[facility] LABORATORYCLIA [id number] [address] MCH (RBC) [Entitic mass] 27.8 pg Normal 26.0-34.0 [facility] Comment on above: Order Comment: Speci men Type: BLOOD SPECIMENOrdering Facility: [facility] Address: [address] [place] [address] Performed By: #### 5 8410-2 ####[facility] LABORATORYCLIA [id number] [address] MCHC (RBC) [Mass/Vol] 30.8 g/dL Normal 30.5-36.0 [facility] Comment on above: Order Comment: Speci men Type: BLOOD SPECIMENOrdering Facility: [facility] Address: [address] [place] [address] Performed By: #### 5 8410-2 ####[facility] LABORATORYCLIA [id number] [address] MCV (RBC) [Entitic vol] 90.2 fL Normal 80.0-100.0 [facility] Comment on above: Order Comment: Speci men Type: BLOOD SPECIMENOrdering Facility: [facility] Address: [address] [place] [address] Performed By: #### 5 8410-2 ####[facility] LABORATORYCLIA [id number] [address] Nucleated RBC (Bld) [#/Vol] 10*3/uL Normal <0.01 [facility] Comment on above: Order Comment: Speci men Type: BLOOD SPECIMENOrdering Facility: [facility] Address: [address] [place] [address] Performed By: #### 5 8410-2 ####[facility] LABORATORYCLIA [id number] [address] Platelet mean volume (Bld) [Entitic vol] 9.9 fL Normal 9.0-12.7 [facility] Comment on above: Order Comment: Speci men Type: BLOOD SPECIMENOrdering Facility: [facility] Address: [address] [place] [address] Performed By: #### 5 8410-2 ####[facility] LABORATORYCLIA [id number] [address] OF [facility] Platelets (Bld) [#/Vol] 333 10*3/uL Normal 150-400 [facility] Comment on above: Order Comment: Speci men Type: BLOOD SPECIMENOrdering Facility: [facility] Address: [address] [place] [address] Performed By: #### 5 8410-2 ####[facility] LABORATORYCLIA [id number] [address] STATES [facility] RBC (Bld) [#/Vol] 3.38 10*6/uL Low 4.20-6.00 [facility] Comment on above: Order Comment: Speci men Type: BLOOD SPECIMENOrdering Facility: [facility] Address: [address] [place] [address] Performed By: #### 5 8410-2 ####[facility] LABORATORYCLIA [id number] [address] WBC (Bld) [#/Vol] 9.71 10*3/uL Normal 3.70-11.00 [facility] Comment on above: Order Comment: Speci men Type: BLOOD SPECIMENOrdering Facility: [facility] Address: [address] [place] [address] Performed By: #### 5 8410-2 ####[facility] LABORATORYCLIA [id number] [address] [place] CNDSon 06-28-2021 CNDS Normal [facility] CONSULT PROGon 06-28-2021 CONSULT PROG Normal [facility] Magnesium SerPl-mCncon 06-28 Magnesium [Mass/Vol] 2.2 mg/dL Normal 1.7-2.3 [facility] Comment on above: Order Comment: Speci men Type: BLOOD SPECIMENOrdering Facility: [facility] Address: [address] [place] [address] Performed By: #### 2 2, ####[facility] LABORATORYCLIA [id number] [address] [place] Vancomycin random [Mass/Vol] on 06-28-2021 Vancomycin [Mass/Vol] 23.0 ug/mL High 10.0-20.0 [facility] Comment on above: Order Comment: Speci men Type: BLOOD SPECIMENOrdering Facility: [facility] Address: [address] [place] [address] Result Comment: Refe rence ranges and high/low indicator flags are provided as general guidelines only. The treating physician must determine appropriate target levels/dosing based on the specific clinical situation. Performed By: #### 4 091-5 ####[facility] LABORATORYCLIA [id number] [address] [place] ALLIED HEALTHon 06-27-2021 ALLIED HEALTH Normal [facility] Basic metabolic 2000 panelon 06-27-2021 Anion gap [Moles/Vol] 10 mmol/L Normal 9-18 [facility] Comment on above: Order Comment: Speci men Type: BLOOD SPECIMENOrdering Facility: [facility] Address: [address] [place] [address] Performed By: #### 2 4320-06, ####[facility] LABORATORYCLIA [id number] [place] [address] [place] Calcium [Mass/Vol] 8.8 mg/dL Normal 8.5-10.2 [facility] Comment on above: Order Comment: Speci men Type: BLOOD SPECIMENOrdering Facility: [facility] Address: [address] [place] [address] Performed By: #### 2 2, ####[facility] LABORATORYCLIA [id number] [place] [address] [place] Chloride [Moles/Vol] 104 mmol/L Normal 97-105 [facility] Comment on above: Order Comment: Speci men Type: BLOOD SPECIMENOrdering Facility: [facility] Address: [address] [place] [address] Performed By: #### 2 432-2, ####[facility] LABORATORYCLIA [id number] [address] [place] CO2 [Moles/Vol] 26 mmol/L Normal 22-30 [facility] Comment on above: Order Comment: Speci men Type: BLOOD SPECIMENOrdering Facility: [facility] Address: [address] [place] [address] Performed By: #### 2 4322, ####[facility] LABORATORYCLIA [id number] [address] STATES [facility] Creatinine [Mass/Vol] 0.57 mg/dL Low 0.73-1.22 [facility] Comment on above: Order Comment: Speci men Type: BLOOD SPECIMENOrdering Facility: [facility] Address: [address] [place] [address] Performed By: #### 2 432-2, ####[facility] LABORATORYCLIA [id number] [address] GFR/1.73 sq M.predicted MDRD (S/P/Bld) [Vol rate/Area] mL/min/{1.73_m2} Normal [facility] Comment on above: Order Comment: Speci men Type: BLOOD SPECIMENOrdering Facility: [facility] Address: [address] [place] [address] Result Comment: >60e GFR (Estimated GFR) Units [...] actual GFR. Performed By: #### 2 432-, 22774-4 ####[facility]PITALIA [id number] [place] [address] [place] Glucose [Mass/Vol] 133 mg/dL High 74-99 [facility] Comment on above: Order Comment: Shira feldman Type: BLOOD SPECIMENOrdering Facility: [facility] Address: [address] [place] [address] Result Comment: The [place] Diabetes Association (ADA) provides guidance for cutoff [...] Standards of Medical Care in Diabetes 2016, [place] Diabetes Association. Diabetes Care. 2016.39(Suppl 1). Performed By: #### 2 432-, ####[facility]OSPITALIA [id number] [place] [address] [place] Potassium [Moles/Vol] 4.2 mmol/L Normal 3.7-5.1 [facility] Comment on above: Order Comment: Shira feldman Type: BLOOD SPECIMENOrdering Facility: [facility] Address: [address] [id number] Performed By: #### 2 432-, ####[facility] LABORATORYIA [id number] [place] [address] [place] Sodium [Moles/Vol] 140 mmol/L Normal 136-144 [facility] Comment on above: Order Comment: Shira feldman Type: BLOOD SPECIMENOrdering Facility: [facility] Address: [address] [address] Performed By: #### 2 4321-2, ####[facility] LABORATORYCLIA [id number] [address] STATES [facility] Urea nitrogen [Mass/Vol] 24 mg/dL Normal 9 [facility] Comment on above: Order Comment: Speci men Type: BLOOD SPECIMENOrdering Facility: [facility] Address: [address] [place] [address] Performed By: #### 2 4321-2, ####[facility] LABORATORYCLIA [id number] [address] [place] CASE MANAGEMon 06-27-2021 CASE MANAGEM Normal [facility] CBC panel Auto (Bld)on 06-27 Erythrocyte distribution width (RBC) [Ratio] 15.8 % High 11.5-15.0 [facility] Comment on above: Order Comment: Speci men Type: BLOOD SPECIMENOrdering Facility: [facility] Address: [address] [place] [address] Performed By: #### 5 8410-2 ####[facility] LABORATORYCLIA [id number] [address] [place] Hematocrit (Bld) [Volume fraction] 31.4 % Low 39.0-51.0 [facility] Comment on above: Order Comment: Speci men Type: BLOOD SPECIMENOrdering Facility: [facility] Address: [address] [place] [address] Performed By: #### 5 8410-2 ####[facility] LABORATORYCLIA [id number] [address] [place] Hemoglobin (Bld) [Mass/Vol] 9.3 g/dL Low 13.0-17.0 [facility] Comment on above: Order Comment: Speci men Type: BLOOD SPECIMENOrdering Facility: [facility] Address: [address] [place] [address] Performed By: #### 5 8410-2 ####[facility] LABORATORYCLIA [id number] [address] MCH (RBC) [Entitic mass] 27.0 pg Normal 26.0-34.0 [facility] Comment on above: Order Comment: Speci men Type: BLOOD SPECIMENOrdering Facility: [facility] Address: [address] [place] [address] Performed By: #### 5 8410-2 ####[facility] LABORATORYCLIA [id number] [address] MCHC (RBC) [Mass/Vol] 29.6 g/dL Low 30.5-36.0 [facility] Comment on above: Order Comment: Speci men Type: BLOOD SPECIMENOrdering Facility: [facility] Address: [address] [place] [address] Performed By: #### 5 8410-2 ####[facility] LABORATORYCLIA [id number] [address] MCV (RBC) [Entitic vol] 91.3 fL Normal 80.0-100.0 [facility] Comment on above: Order Comment: Speci men Type: BLOOD SPECIMENOrdering Facility: [facility] Address: [address] [place] [address] Performed By: #### 5 8410-2 ####[facility] LABORATORYCLIA [id number] [address] Nucleated RBC (Bld) [#/Vol] 10*3/uL Normal <0.01 [facility] Comment on above: Order Comment: Speci men Type: BLOOD SPECIMENOrdering Facility: [facility] Address: [address] [place] [address] Performed By: #### 5 8410-2 ####[facility] LABORATORYCLIA [id number] [address] Platelet mean volume (Bld) [Entitic vol] 10.3 fL Normal 9.0-12.7 [facility] Comment on above: Order Comment: Speci men Type: BLOOD SPECIMENOrdering Facility: [facility] Address: [address] [place] [address] Performed By: #### 5 8410-2 ####[facility] LABORATORYCLIA [id number] [address] OF [facility] Platelets (Bld) [#/Vol] 359 10*3/uL Normal 150-400 [facility] Comment on above: Order Comment: Speci men Type: BLOOD SPECIMENOrdering Facility: [facility] Address: [address] [place] [address] Performed By: #### 5 8410-2 ####[facility] LABORATORYCLIA [id number] [place] [address] [place] RBC (Bld) [#/Vol] 3.44 10*6/uL Low 4.20-6.00 [facility] Comment on above: Order Comment: Speci men Type: BLOOD SPECIMENOrdering Facility: [facility] Address: [address] [place] [address] Performed By: #### 5 8410-2 ####[facility] LABORATORYCLIA [id number] [address] [place] WBC (Bld) [#/Vol] 10.73 10*3/uL Normal 3.70-11.00 [facility] Comment on above: Order Comment: Speci men Type: BLOOD SPECIMENOrdering Facility: [facility] Address: [address] [place] [address] Performed By: #### 5 8410-2 ####[facility] LABORATORYCLIA [id number] [address] Magnesium SerPl-mCncon 06-27 Magnesium [Mass/Vol] 2.2 mg/dL Normal 1.7-2.3 [facility] Comment on above: Order Comment: Speci men Type: BLOOD SPECIMENOrdering Facility: [facility] Address: [address] [place] [address] Performed By: #### 2 4321-2, 16271-0 ####[facility] LABORATORYCLIA [id number] [place] [address] [place] NT-proBNP SerPl-mCncon 06-27 Natriuretic peptide.B prohormone N-Terminal [Mass/Vol] 184 pg/mL High <125 [facility] Comment on above: Order Comment: Speci men Type: BLOOD SPECIMENOrdering Facility: [facility] Address: [address] [place] [address] Performed By: #### 3 3762-6 ####[facility] LABORATORYCLIA [id number] [place] [address] [place] NUTRITIONon 06-27-2021 NUTRITION [...] Comment: Speci men Type: BLOOD SPECIMENOrdering Facility: [facility] Address: [address] [address] Performed By: #### 1 9123-9, 08574-0 ####[facility] LABORATORYCLIA [id number] [place] [address] [place] Calcium [Mass/Vol] 8.7 mg/dL Normal 8.5-10.2 [facility] Comment on above: Order Comment: Speci men Type: BLOOD SPECIMENOrdering Facility: [facility] Address: [address] [address] Performed By: #### 1 9123-9, 31596-8 ####[facility] LABORATORYCLIA [id number] [place] [address] [place] Chloride [Moles/Vol] 105 mmol/L Normal 97-105 [facility] Comment on above: Order Comment: Speci men Type: BLOOD SPECIMENOrdering Facility: [facility] Address: [address] [address] Performed By: #### 1 9123-9, ####[facility] LABORATORYCLIA [id number] [place] [address] [place] CO2 [Moles/Vol] 26 mmol/L Normal 22-30 [facility] Comment on above: Order Comment: Speci men Type: BLOOD SPECIMENOrdering Facility: [facility] Address: [address] [place] [address] Performed By: #### 1 9123-01, 81276-4 ####[facility]ITALCLIA [id number] [place] [address] [place] Creatinine [Mass/Vol] 0.56 mg/dL Low 0.73-1.22 [facility] Comment on above: Order Comment: Speci men Type: BLOOD SPECIMENOrdering Facility: [facility] Address: [address] [place] [address] Performed By: #### 1 91239, 11275-5 ####[facility]ITALCLIA [id number] [place] [address] [place] GFR/1.73 sq M.predicted MDRD (S/P/Bld) [Vol rate/Area] mL/min/{1.73_m2} Normal [facility] Comment on above: Order Comment: Speci men Type: BLOOD SPECIMENOrdering Facility: [facility] Address: [address] [place] [address] Result Comment: >60e GFR (Estimated GFR) Units [...] actual GFR. Performed By: #### 1 91239, 31110-9 ####[facility] LABORATORYCLIA [id number] [place] [address] [place] Glucose [Mass/Vol] 134 mg/dL High 74-99 [facility] Comment on above: Order Comment: Shira feldman Type: BLOOD SPECIMENOrdering Facility: [facility] Address: [address] [place] [address] Result Comment: The [place] Diabetes Association (ADA) provides guidance for cutoff [...] Standards of Medical Care in Diabetes 2016, [place] Diabetes Association. Diabetes Care. 2016.39(Suppl 1). Performed By: #### 1 9123-9, 77042-4 ####[facility] LABORATORYCLIA [id number] [place] [address] [place] Potassium [Moles/Vol] 3.8 mmol/L Normal 3.7-5.1 [facility] Comment on above: Order Comment: Shira feldman Type: BLOOD SPECIMENOrdering Facility: [facility] Address: [address] [place] [address] Performed By: #### 1 9123-9, 01560-6 ####[facility] LABORATORYCLIA [id number] [place] [address] [place] Sodium [Moles/Vol] 140 mmol/L Normal 136-144 [facility] Comment on above: Order Comment: Shira feldman Type: BLOOD SPECIMENOrdering Facility: [facility] Address: [address] [place] [address] Performed By: #### 1 9123-9, 08658-4 ####[facility] LABORATORYCLIA [id number] [place] [address] [place] Urea nitrogen [Mass/Vol] 24 mg/dL Normal 9-24 [facility] Comment on above: Order Comment: Speci men Type: BLOOD SPECIMENOrdering Facility: [facility] Address: [address] [place] [address] Performed By: #### 1 9123-9, 40137-3 ####[facility] LABORATORYCLIA [id number] [address] STATES [place] [facility] CBC panel Auto (Bld)on 06-26 Erythrocyte distribution width (RBC) [Ratio] 15.9 % High 11.5-15.0 [facility] Comment on above: Order Comment: Speci men Type: BLOOD SPECIMENOrdering Facility: [facility] Address: [address] [place] [address] Performed By: #### 5 8410-2 ####[facility] LABORATORYCLIA [id number] [address] STATES [facility] Hematocrit (Bld) [Volume fraction] 29.8 % Low 39.0-51.0 [facility] Comment on above: Order Comment: Speci men Type: BLOOD SPECIMENOrdering Facility: [facility] Address: [address] [place] [address] Performed By: #### 5 8410-2 ####[facility] LABORATORYCLIA [id number] [address] STATES [place] [facility] Hemoglobin (Bld) [Mass/Vol] 9.1 g/dL Low 13.0-17.0 [facility] Comment on above: Order Comment: Speci men Type: BLOOD SPECIMENOrdering Facility: [facility] Address: [address] [place] [address] Performed By: #### 5 8410-2 ####[facility] LABORATORYCLIA [id number] [address] STATES [facility] MCH (RBC) [Entitic mass] 27.8 pg Normal 26.0-34.0 [facility] Comment on above: Order Comment: Speci men Type: BLOOD SPECIMENOrdering Facility: [facility] Address: [address] [address] Performed By: #### 5 8410-2 ####[facility] LABORATORYCLIA [id number] [address] MCHC (RBC) [Mass/Vol] 30.5 g/dL Normal 30.5-36.0 [facility] Comment on above: Order Comment: Speci men Type: BLOOD SPECIMENOrdering Facility: [facility] Address: [address] [place] [address] Performed By: #### 5 8410-2 ####[facility] LABORATORYCLIA [id number] [address] MCV (RBC) [Entitic vol] 91.1 fL Normal 80.0-100.0 [facility] Comment on above: Order Comment: Speci men Type: BLOOD SPECIMENOrdering Facility: [facility] Address: [address] [place] [address] Performed By: #### 5 8410-2 ####[facility] LABORATORYCLIA [id number] [address] Nucleated RBC (Bld) [#/Vol] 10*3/uL Normal <0.01 [facility] Comment on above: Order Comment: Speci men Type: BLOOD SPECIMENOrdering Facility: [facility] Address: [address] [place] [address] Performed By: #### 5 8410-2 ####[facility] LABORATORYCLIA [id number] [address] Platelet mean volume (Bld) [Entitic vol] 10.3 fL Normal 9.0-12.7 [facility] Comment on above: Order Comment: Speci men Type: BLOOD SPECIMENOrdering Facility: [facility] Address: [address] [place] [address] Performed By: #### 5 8410-2 ####[facility] LABORATORYCLIA [id number] [address] [place] Platelets (Bld) [#/Vol] 336 10*3/uL Normal 150-400 [facility] Comment on above: Order Comment: Speci men Type: BLOOD SPECIMENOrdering Facility: [facility] Address: [address] [place] [address] Performed By: #### 5 8410-2 ####[facility] LABORATORYCLIA [id number] [place] [address] [place] [facility] RBC (Bld) [#/Vol] 3.27 10*6/uL Low 4.20-6.00 [facility] Comment on above: Order Comment: Speci men Type: BLOOD SPECIMENOrdering Facility: [facility] Address: [address] [place] [address] Performed By: #### 5 8410-2 ####[facility] LABORATORYCLIA [id number] [address] [place] [facility] WBC (Bld) [#/Vol] 9.14 10*3/uL Normal 3.70-11.00 [facility] Comment on above: Order Comment: Speci men Type: BLOOD SPECIMENOrdering Facility: [facility] Address: [address] [place] [address] Performed By: #### 5 8410-2 ####[facility] LABORATORYCLIA [id number] [address] CONSULT PROGon 06-26-2021 CONSULT PROG Normal [facility] Magnesium SerPl-mCncon 06-26 Magnesium [Mass/Vol] 2.2 mg/dL Normal 1.7-2.3 [facility] Comment on above: Order Comment: Speci men Type: BLOOD SPECIMENOrdering Facility: [facility] Address: [address] [place] [address] Performed By: #### 1 9123-9, 21866-3 ####[facility] LABORATORYCLIA [id number] [address] [place] NURSING PROGon 06-26-2021 NURSING PROG Normal [facility] NURSING PROG Normal [facility] Basic metabolic 2000 panelon 06-25-2021 Anion gap [Moles/Vol] 8 mmol/L Low 9-18 [facility] Comment on above: Order Comment: Speci men Type: BLOOD SPECIMENOrdering Facility: [facility] Address: [address] [place] [address] Performed By: #### 2 4321-2, ####[facility]ORYCLIA [id number] [place] [address] [place] Calcium [Mass/Vol] 8.8 mg/dL Normal 8.5-10.2 [facility] Comment on above: Order Comment: Speci men Type: BLOOD SPECIMENOrdering Facility: [facility] Address: [address] [place] [address] Performed By: #### 2 4321-2, ####[facility] LABORATORYCLIA [id number] [place] [address] [place] Chloride [Moles/Vol] 105 mmol/L Normal 97-105 [facility] Comment on above: Order Comment: Speci men Type: BLOOD SPECIMENOrdering Facility: [facility] Address: [address] [place] [address] Performed By: #### 2 4320-2, ####[facility] LABORATORYCLIA [id number] [place] [address] [place] CO2 [Moles/Vol] 27 mmol/L Normal 22-30 [facility] Comment on above: Order Comment: Speci men Type: BLOOD SPECIMENOrdering Facility: [facility] Address: [address] [place] [address] Performed By: #### 2 4321-2, ####[facility]ATORYCLIA [id number] [place] [address] [place] Creatinine [Mass/Vol] 0.59 mg/dL Low 0.73-1.22 [facility] Comment on above: Order Comment: Speci men Type: BLOOD SPECIMENOrdering Facility: [facility] Address: [address] [id number] Performed By: #### 2 4321-2, 95742-6 ####[facility] LABORATORYCLIA [id number] [address] [place] GFR/1.73 sq M.predicted MDRD (S/P/Bld) [Vol rate/Area] mL/min/{1.73_m2} Normal [facility] Comment on above: Order Comment: Shira feldman Type: BLOOD SPECIMENOrdering Facility: [facility] Address: [address] Result Comment: >60e GFR (Estimated GFR) [...] actual GFR. Performed By: #### 2 4321-2, 30429-1 ####[facility] LABORATORYCLIA [id number] [place] [address] [place] Glucose [Mass/Vol] 132 mg/dL High 74-99 [facility] Comment on above: Order Comment: Shira feldman Type: BLOOD SPECIMENOrdering Facility: [facility] Address: [address] [id number] Result Comment: The [place] Diabetes Association (ADA) provides guidance for cutoff [...] Standards of Medical Care in Diabetes 2016, [place] Diabetes Association. Diabetes Care. 2016.39(Suppl 1). Performed By: #### 2 432-2, ####[facility] LABORATORYCLIA [id number] [address] [place] Potassium [Moles/Vol] 3.9 mmol/L Normal 3.7-5.1 [facility] Comment on above: Order Comment: Speci men Type: BLOOD SPECIMENOrdering Facility: [facility] Address: [address] [place] [address] Performed By: #### 2 43205-08, ####[facility] LABORATORYCLIA [id number] [address] [place] [facility] Sodium [Moles/Vol] 140 mmol/L Normal 136-144 [facility] Comment on above: Order Comment: Speci men Type: BLOOD SPECIMENOrdering Facility: [facility] Address: [address] [place] [address] Performed By: #### 2 4320-06, ####[facility] LABORATORYCLIA [id number] [address] [place] [facility] Urea nitrogen [Mass/Vol] 24 mg/dL Normal 9-24 [facility] Comment on above: Order Comment: Speci men Type: BLOOD SPECIMENOrdering Facility: [facility] Address: [address] [place] [address] Performed By: #### 2 4320-06, ####[facility] LABORATORYCLIA [id number] [address] [place] CASE MANAGEMon 06-25-2021 CASE MANAGEM Normal [facility] CBC panel Auto (Bld)on 06-25 Erythrocyte distribution width (RBC) [Ratio] 15.9 % High 11.5-15.0 [facility] Comment on above: Order Comment: Speci men Type: BLOOD SPECIMENOrdering Facility: [facility] Address: [address] [place] [address] Performed By: #### 5 8410-2 ####[facility] LABORATORYCLIA [id number] [address] Hematocrit (Bld) [Volume fraction] 31.0 % Low 39.0-51.0 [facility] Comment on above: Order Comment: Speci men Type: BLOOD SPECIMENOrdering Facility: [facility] Address: [address] [place] [address] Performed By: #### 5 8410-2 ####[facility] LABORATORYCLIA [id number] [address] Hemoglobin (Bld) [Mass/Vol] 9.4 g/dL Low 13.0-17.0 [facility] Comment on above: Order Comment: Speci men Type: BLOOD SPECIMENOrdering Facility: [facility] Address: [address] [place] [address] Performed By: #### 5 8410-2 ####[facility] LABORATORYCLIA [id number] [address] MCH (RBC) [Entitic mass] 28.1 pg Normal 26.0-34.0 [facility] Comment on above: Order Comment: Speci men Type: BLOOD SPECIMENOrdering Facility: [facility] Address: [address] [place] [address] Performed By: #### 5 8410-2 ####[facility] LABORATORYCLIA [id number] [address] MCHC (RBC) [Mass/Vol] 30.3 g/dL Low 30.5-36.0 [facility] Comment on above: Order Comment: Speci men Type: BLOOD SPECIMENOrdering Facility: [facility] Address: [address] [place] [address] Performed By: #### 5 8410-2 ####[facility] LABORATORYCLIA [id number] [address] OF [facility] MCV (RBC) [Entitic vol] 92.5 fL Normal 80.0-100.0 [facility] Comment on above: Order Comment: Speci men Type: BLOOD SPECIMENOrdering Facility: [facility] Address: [address] Performed By: #### 5 8410-2 ####[facility] LABORATORYCLIA [id number] [address] [place] Nucleated RBC (Bld) [#/Vol] 10*3/uL Normal <0.01 [facility] Comment on above: Order Comment: Speci men Type: BLOOD SPECIMENOrdering Facility: [facility] Address: [address] Performed By: #### 5 8410-2 ####[facility] LABORATORYCLIA [id number] [address] [place] Platelet mean volume (Bld) [Entitic vol] 10.5 fL Normal 9.0-12.7 [facility] Comment on above: Order Comment: Speci men Type: BLOOD SPECIMENOrdering Facility: [facility] Address: [address] Performed By: #### 5 8410-2 ####[facility] LABORATORYCLIA [id number] [address] [place] Platelets (Bld) [#/Vol] 311 10*3/uL Normal 150-400 [facility] Comment on above: Order Comment: Speci men Type: BLOOD SPECIMENOrdering Facility: [facility] Address: [address] Performed By: #### 5 8410-2 ####[facility] LABORATORYCLIA [id number] [address] [place] RBC (Bld) [#/Vol] 3.35 10*6/uL Low 4.20-6.00 [facility] Comment on above: Order Comment: Speci men Type: BLOOD SPECIMENOrdering Facility: [facility] Address: [address] Performed By: #### 5 8410-2 ####[facility] LABORATORYCLIA [id number] [place] [address] [place] WBC (Bld) [#/Vol] 9.57 10*3/uL Normal 3.70-11.00 [facility] Comment on above: Order Comment: Speci men Type: BLOOD SPECIMENOrdering Facility: [facility] Address: [address] [place] [address] Performed By: #### 5 8410-2 ####[facility] LABORATORYCLIA [id number] [place] [address] [place] Magnesium SerPl-mCncon 06-25 Magnesium [Mass/Vol] 2.4 mg/dL High 1.7-2.3 [facility] Comment on above: Order Comment: Speci men Type: BLOOD SPECIMENOrdering Facility: [facility] Address: [address] [place] [address] Performed By: #### 2 4321-2, 59473-0 ####[facility] LABORATORYCLIA [id number] [place] [address] [place] Basic metabolic 2000 panelon 06-24-2021 Anion gap [Moles/Vol] 9 mmol/L Normal 9-18 [facility] Comment on above: Order Comment: Speci men Type: BLOOD SPECIMENOrdering Facility: [facility] Address: [address] [place] [address] Performed By: #### 1 9123-9, 00297-9 ####[facility] LABORATORYCLIA [id number] [address] [place] Calcium [Mass/Vol] 8.6 mg/dL Normal 8.5-10.2 [facility] Comment on above: Order Comment: Speci men Type: BLOOD SPECIMENOrdering Facility: [facility] Address: [address] [place] [address] Performed By: #### 1 9123-9, 05497-8 ####[facility] LABORATORYCLIA [id number] [address] [place] Chloride [Moles/Vol] 103 mmol/L Normal 97-105 [facility] Comment on above: Order Comment: Speci men Type: BLOOD SPECIMENOrdering Facility: [facility] Address: [address] [address] Performed By: #### 1 9123-9, 65983-8 ####[facility] LABORATORYCLIA [id number] [address] [place] [facility] CO2 [Moles/Vol] 26 mmol/L Normal 22-30 [facility] Comment on above: Order Comment: Speci men Type: BLOOD SPECIMENOrdering Facility: [facility] Address: [address] [place] [address] Performed By: #### 1 9123-9, 12506-2 ####[facility] LABORATORYCLIA [id number] [address] [place] [facility] Creatinine [Mass/Vol] 0.60 mg/dL Low 0.73-1.22 [facility] Comment on above: Order Comment: Speci men Type: BLOOD SPECIMENOrdering Facility: [facility] Address: [address] [place] [address] Performed By: #### 1 9123-9, 28018-9 ####[facility] LABORATORYCLIA [id number] [address] [place] GFR/1.73 sq M.predicted MDRD (S/P/Bld) [Vol rate/Area] mL/min/{1.73_m2} Normal [facility] Comment on above: Order Comment: Speci men Type: BLOOD SPECIMENOrdering Facility: [facility] Address: [address] [place] [address] Result Comment: >60e GFR (Estimated GFR) Units [...] actual GFR. Performed By: #### 1 9123-9, 48722-3 ####[facility]ITALCLIA [id number] [place] [address] [place] Glucose [Mass/Vol] 126 mg/dL High 74-99 [facility] Comment on above: Order Comment: Shira fedlman Type: BLOOD SPECIMENOrdering Facility: [facility] Address: [address] [place], [place] [id number] Result Comment: The [place] Diabetes Association (ADA) provides guidance for cutoff [...] Standards of Medical Care in Diabetes 2016, [place] Diabetes Association. Diabetes Care. 2016.39(Suppl 1). Performed By: #### 1 9123-9, 99805-0 ####[facility]ITALCLIA [id number] [place] [address] [place] Potassium [Moles/Vol] 3.9 mmol/L Normal 3.7-5.1 [facility] Comment on above: Order Comment: Shira feldman Type: BLOOD SPECIMENOrdering Facility: [facility] Address: [address] [id number] Performed By: #### 1 9123-9, 88870-8 ####[facility] LABORATORYCLIA [id number] [place] [address] [place] Sodium [Moles/Vol] 138 mmol/L Normal 136-144 [facility] Comment on above: Order Comment: Shira feldman Type: BLOOD SPECIMENOrdering Facility: [facility] Address: [address] [address] Performed By: #### 1 9123-9, 79716-5 ####[facility] LABORATORYCLIA [id number] [place] [address] [place] Urea nitrogen [Mass/Vol] 24 mg/dL Normal 9-24 [facility] Comment on above: Order Comment: Speci men Type: BLOOD SPECIMENOrdering Facility: [facility] Address: [address] [place] [address] Performed By: #### 1 9123-9, 09723-1 ####[facility] LABORATORYCLIA [id number] [address] [place] CASE MANAGEMon 06-24-2021 CASE MANAGEM Normal [facility] CASE MANAGEM Normal [facility] CASE MANAGEM Normal [facility] CBC panel Auto (Bld)on 06-24 Erythrocyte distribution width (RBC) [Ratio] 16.1 % High 11.5-15.0 [facility] Comment on above: Order Comment: Speci men Type: BLOOD SPECIMENOrdering Facility: [facility] Address: [address] [place] [address] Performed By: #### 5 8410-2 ####[facility] LABORATORYCLIA [id number] [address] [place] Hematocrit (Bld) [Volume fraction] 31.7 % Low 39.0-51.0 [facility] Comment on above: Order Comment: Speci men Type: BLOOD SPECIMENOrdering Facility: [facility] Address: [address] [place] [address] Performed By: #### 5 8410-2 ####[facility] LABORATORYCLIA [id number] [place] [address] [place] Hemoglobin (Bld) [Mass/Vol] 9.7 g/dL Low 13.0-17.0 [facility] Comment on above: Order Comment: Speci men Type: BLOOD SPECIMENOrdering Facility: [facility] Address: [address] [place] [address] Performed By: #### 5 8410-2 ####[facility] LABORATORYCLIA [id number] [address] MCH (RBC) [Entitic mass] 28.0 pg Normal 26.0-34.0 [facility] Comment on above: Order Comment: Speci men Type: BLOOD SPECIMENOrdering Facility: [facility] Address: [address] [place] [address] Performed By: #### 5 8410-2 ####[facility] LABORATORYCLIA [id number] [address] MCHC (RBC) [Mass/Vol] 30.6 g/dL Normal 30.5-36.0 [facility] Comment on above: Order Comment: Speci men Type: BLOOD SPECIMENOrdering Facility: [facility] Address: [address] [place] [address] Performed By: #### 5 8410-2 ####[facility] LABORATORYCLIA [id number] [address] MCV (RBC) [Entitic vol] 91.4 fL Normal 80.0-100.0 [facility] Comment on above: Order Comment: Speci men Type: BLOOD SPECIMENOrdering Facility: [facility] Address: [address] [place] [address] Performed By: #### 5 8410-2 ####[facility] LABORATORYCLIA [id number] [address] Nucleated RBC (Bld) [#/Vol] 10*3/uL Normal <0.01 [facility] Comment on above: Order Comment: Speci men Type: BLOOD SPECIMENOrdering Facility: [facility] Address: [address] [place] [address] Performed By: #### 5 8410-2 ####[facility] [facility]PITAL LABORATORYCLIA [id number] [address] Platelet mean volume (Bld) [Entitic vol] 11.0 fL Normal 9.0-12.7 [facility] Comment on above: Order Comment: Speci men Type: BLOOD SPECIMENOrdering Facility: [facility] Address: [address] [place] [address] Performed By: #### 5 8410-2 ####[facility] LABORATORYCLIA [id number] [address] [facility] Platelets (Bld) [#/Vol] 358 10*3/uL Normal 150-400 [facility] Comment on above: Order Comment: Speci men Type: BLOOD SPECIMENOrdering Facility: [facility] Address: [address] [place] [address] Performed By: #### 5 8410-2 ####[facility] LABORATORYCLIA [id number] [address] [place] RBC (Bld) [#/Vol] 3.47 10*6/uL Low 4.20-6.00 [facility] Comment on above: Order Comment: Speci men Type: BLOOD SPECIMENOrdering Facility: [facility] Address: [address] [place] [address] Performed By: #### 5 8410-2 ####[facility] LABORATORYCLIA [id number] [address] [place] WBC (Bld) [#/Vol] 10.07 10*3/uL Normal 3.70-11.00 [facility] Comment on above: Order Comment: Speci men Type: BLOOD SPECIMENOrdering Facility: [facility] Address: [address] [place] [address] Performed By: #### 5 8410-2 ####[facility] LABORATORYCLIA [id number] [address] Magnesium SerPl-mCncon 06-24 Magnesium [Mass/Vol] 2.3 mg/dL Normal 1.7-2.3 [facility] Comment on above: Order Comment: Speci men Type: BLOOD SPECIMENOrdering Facility: [facility] Address: [address] [place] [address] Performed By: #### 1 9123-9, 72822-8 ####[facility] LABORATORYCLIA [id number] [place] [address] [place] ALLIED HEALTHon 06-23-2021 ALLIED HEALTH Normal [facility] Basic metabolic 2000 panelon 06-23-2021 Anion gap [Moles/Vol] 9 mmol/L Normal 9-18 [facility] Comment on above: Order Comment: Speci men Type: BLOOD SPECIMENOrdering Facility: [facility] Address: [address] [place] [address] Performed By: #### 1 91239, 82040-8 ####[facility] LABORATORYCLIA [id number] [place] [address] [place] Calcium [Mass/Vol] 8.4 mg/dL Low 8.5-10.2 [facility] Comment on above: Order Comment: Speci men Type: BLOOD SPECIMENOrdering Facility: [facility] Address: [address] [place] [address] Performed By: #### 1 91239, 35404-0 ####[facility] LABORATORYCLIA [id number] [place] [address] [place] Chloride [Moles/Vol] 104 mmol/L Normal 97-105 [facility] Comment on above: Order Comment: Speci men Type: BLOOD SPECIMENOrdering Facility: [facility] Address: [address] [place] [address] Performed By: #### 1 91239, 03821-7 ####[facility] LABORATORYCLIA [id number] [place] [address] [place] CO2 [Moles/Vol] 26 mmol/L Normal 22-30 [facility] Comment on above: Order Comment: Speci men Type: BLOOD SPECIMENOrdering Facility: [facility] Address: [address] [place] [address] Performed By: #### 1 91239, 51678-1 ####[facility] LABORATORYCLIA [id number] [place] [address] [place] Creatinine [Mass/Vol] 0.62 mg/dL Low 0.73-1.22 [facility] Comment on above: Order Comment: Johncara feldman Type: BLOOD SPECIMENOrdering Facility: [facility] Address: [address] [id number] Performed By: #### 1 9123-9, 04139-9 ####[facility] LABORATORYCLIA [id number] [place] [address] [place] GFR/1.73 sq M.predicted MDRD (S/P/Bld) [Vol rate/Area] mL/min/{1.73_m2} Normal [facility] Comment on above: Order Comment: [facility] Type: BLOOD SPECIMENOrdering Facility: [facility] Address: [address] [place] [address] Result Comment: >60e GFR (Estimated GFR) Units [...] actual GFR. Performed By: #### 1 9123-9, 70922-7 ####[facility] LABORATORYCLIA [id number] [address] [place] Glucose [Mass/Vol] 111 mg/dL High 74-99 [facility] Comment on above: Order Comment: Johncara feldman Type: BLOOD SPECIMENOrdering Facility: [facility] Address: [address] [id number] Result Comment: The [place] Diabetes Association (ADA) provides guidance for cutoff [...] Standards of Medical Care in Diabetes 2016, [place] Diabetes Association. Diabetes Care. 2016.39(Suppl 1). Performed By: #### 1 9123-9, 73885-1 ####[facility] LABORATORYCLIA [id number] [address] STATES [facility] Potassium [Moles/Vol] 4.1 mmol/L Normal 3.7-5.1 [facility] Comment on above: Order Comment: Shira feldman Type: BLOOD SPECIMENOrdering Facility: [facility] Address: [address] [place] [address] Performed By: #### 1 9123-9, 23275-4 ####[facility]ITALCLIA [id number] [address] Sodium [Moles/Vol] 139 mmol/L Normal 136-144 [facility] Comment on above: Order Comment: Shira feldman Type: BLOOD SPECIMENOrdering Facility: [facility] Address: [address] [place] [address] Performed By: #### 1 9123-9, 92523-5 ####[facility]PITALCLIA [id number] [address] Urea nitrogen [Mass/Vol] 26 mg/dL High 9-24 [facility] Comment on above: Order Comment: Johni francia Type: BLOOD SPECIMENOrdering Facility: [facility] Address: [address] [place] [address] Performed By: #### 1 9123-9, 27386-5 ####[facility] LABORATORYCLIA [id number] [address] [facility] CASE MANAGEMon 06-23-2021 CASE MANAGEM Normal [facility] CBC panel Auto (Bld)on 06-23 Erythrocyte distribution width (RBC) [Ratio] 16.0 % High 11.5-15.0 [facility] Comment on above: Order Comment: Speci men Type: BLOOD SPECIMENOrdering Facility: [facility] Address: [address] [place] [address] Performed By: #### 5 8410-2 ####[facility] LABORATORYCLIA [id number] [address] Hematocrit (Bld) [Volume fraction] 31.1 % Low 39.0-51.0 [facility] Comment on above: Order Comment: Speci men Type: BLOOD SPECIMENOrdering Facility: [facility] Address: [address] [place] [address] Performed By: #### 5 8410-2 ####[facility] LABORATORYCLIA [id number] [address] [facility] Hemoglobin (Bld) [Mass/Vol] 9.5 g/dL Low 13.0-17.0 [facility] Comment on above: Order Comment: Speci men Type: BLOOD SPECIMENOrdering Facility: [facility] Address: [address] [place] [address] Performed By: #### 5 8410-2 ####[facility] LABORATORYCLIA [id number] [address] [place] MCH (RBC) [Entitic mass] 28.1 pg Normal 26.0-34.0 [facility] Comment on above: Order Comment: Speci men Type: BLOOD SPECIMENOrdering Facility: [facility] Address: [address] [place] [address] Performed By: #### 5 8410-2 ####[facility] LABORATORYCLIA [id number] [address] MCHC (RBC) [Mass/Vol] 30.5 g/dL Normal 30.5-36.0 [facility] Comment on above: Order Comment: Speci men Type: BLOOD SPECIMENOrdering Facility: [facility] Address: [address] [place] [address] Performed By: #### 5 8410-2 ####[facility] LABORATORYCLIA [id number] [address] MCV (RBC) [Entitic vol] 92.0 fL Normal 80.0-100.0 [facility] Comment on above: Order Comment: Speci men Type: BLOOD SPECIMENOrdering Facility: [facility] Address: [address] [place] [address] Performed By: #### 5 8410-2 ####[facility] LABORATORYCLIA [id number] [address] Nucleated RBC (Bld) [#/Vol] 10*3/uL Normal <0.01 [facility] Comment on above: Order Comment: Speci men Type: BLOOD SPECIMENOrdering Facility: [facility] Address: [address] [place] [address] Performed By: #### 5 8410-2 ####[facility] LABORATORYCLIA [id number] [address] Platelet mean volume (Bld) [Entitic vol] 11.0 fL Normal 9.0-12.7 [facility] Comment on above: Order Comment: Speci men Type: BLOOD SPECIMENOrdering Facility: [facility] Address: [address] [place] [address] Performed By: #### 5 8410-2 ####[facility] LABORATORYCLIA [id number] [address] Platelets (Bld) [#/Vol] 361 10*3/uL Normal 150-400 [facility] Comment on above: Order Comment: Speci men Type: BLOOD SPECIMENOrdering Facility: [facility] Address: [address] [place] [address] Performed By: #### 5 8410-2 ####[facility] LABORATORYCLIA [id number] [address] [place] RBC (Bld) [#/Vol] 3.38 10*6/uL Low 4.20-6.00 [facility] Comment on above: Order Comment: Speci men Type: BLOOD SPECIMENOrdering Facility: [facility] Address: [address] [place] [address] Performed By: #### 5 8410-2 ####[facility] LABORATORYCLIA [id number] [address] [facility] WBC (Bld) [#/Vol] 9.02 10*3/uL Normal 3.70-11.00 [facility] Comment on above: Order Comment: Speci men Type: BLOOD SPECIMENOrdering Facility: [facility] Address: [address] [place] [address] Performed By: #### 5 8410-2 ####[facility] LABORATORYCLIA [id number] [address] CONSULT PROGon 06-23-2021 CONSULT PROG Normal [facility] CONSULT PROG Normal [facility] Magnesium SerPl-mCncon 06-23 Magnesium [Mass/Vol] 2.4 mg/dL High 1.7-2.3 [facility] Comment on above: Order Comment: Speci men Type: BLOOD SPECIMENOrdering Facility: [facility] Address: [address] [place] [address] Performed By: #### 1 9123-9, 26803-3 ####[facility] LABORATORYCLIA [id number] [address] THERAPY NTon 06-23-2021 THERAPY NT Normal [facility] Vancomycin random [Mass/Vol] on 06-23-2021 Vancomycin [Mass/Vol] 22.8 ug/mL High 10.0-20.0 [facility] Comment on above: Order Comment: Speci men Type: BLOOD SPECIMENOrdering Facility: [facility] Address: [address] [place] [address] Result Comment: Refe rence ranges and high/low indicator flags are provided as general guidelines only. The treating physician must determine appropriate target levels/dosing based on the specific clinical situation. Performed By: #### 4 091-5 ####[facility] LABORATORYCLIA [id number] [place] [address] [place] XR MOD BARIUM SWALLOW W SPEE Lore 06-23-2021 XR MOD BARIUM SWALLOW W SPEECH Normal [facility] Basic metabolic 2000 panelon 06-22-2021 Anion gap [Moles/Vol] 6 mmol/L Low 9-18 [facility] Comment on above: Order Comment: Speci men Type: BLOOD SPECIMENOrdering Facility: [facility] Address: [address] [place] [address] Performed By: #### 2 4321-2, ####[facility] LABORATORYCLIA [id number] [place] [address] [place] Calcium [Mass/Vol] 8.5 mg/dL Normal 8.5-10.2 [facility] Comment on above: Order Comment: Speci men Type: BLOOD SPECIMENOrdering Facility: [facility] Address: [address] [place] [address] Performed By: #### 2 432-2, ####[facility] LABORATORYCLIA [id number] [place] [address] [place] Chloride [Moles/Vol] 105 mmol/L Normal 97-105 [facility] Comment on above: Order Comment: Speci men Type: BLOOD SPECIMENOrdering Facility: [facility] Address: [address] [place] [address] Performed By: #### 2 4321-2, ####[facility] LABORATORYCLIA [id number] [place] [address] [place] CO2 [Moles/Vol] 26 mmol/L Normal 22-30 [facility] Comment on above: Order Comment: Speci men Type: BLOOD SPECIMENOrdering Facility: [facility] Address: [address] [place] [address] Performed By: #### 2 4321-2, ####[facility] LABORATORYCLIA [id number] [place] [address] [place] Creatinine [Mass/Vol] 0.56 mg/dL Low 0.73-1.22 [facility] Comment on above: Order Comment: Shira feldman Type: BLOOD SPECIMENOrdering Facility: [facility] Address: [address] [id number] Performed By: #### 2 4321-2, ####[facility] LABORATORYCLIA [id number] [place] [address] [place] GFR/1.73 sq M.predicted MDRD (S/P/Bld) [Vol rate/Area] mL/min/{1.73_m2} Normal [facility] Comment on above: Order Comment: Johncara feldman Type: BLOOD SPECIMENOrdering Facility: [facility] Address: [address] [place] [address] Result Comment: >60e GFR (Estimated GFR) Units [...] By: #### 2 4321-2, ####[facility] LABORATORYCLIA [id number] [address] [place] Glucose [Mass/Vol] 120 mg/dL High 74-99 [facility] Comment on above: Order Comment: Johncara feldman Type: BLOOD SPECIMENOrdering Facility: [facility] Address: [address] [place] [address] Result Comment: The [place] Diabetes Association (ADA) provides guidance for cutoff [...] Standards of Medical Care in Diabetes 2016, [place] Diabetes Association. Diabetes Care. 2016.39(Suppl 1). Performed By: #### 2 4320-2, ####[facility] LABORATORYCLIA [id number] [address] OF [facility] Potassium [Moles/Vol] 4.0 mmol/L Normal 3.7-5.1 [facility] Comment on above: Order Comment: Shira feldman Type: BLOOD SPECIMENOrdering Facility: [facility] Address: [address] [place] [address] Performed By: #### 2 4320-06, ####[facility]ITALCLIA [id number] [address] Sodium [Moles/Vol] 137 mmol/L Normal 136-144 [facility] Comment on above: Order Comment: Shira feldman Type: BLOOD SPECIMENOrdering Facility: [facility] Address: [address] [place] [address] Performed By: #### 2 4320-06, ####[facility] LABORATORYCLIA [id number] [address] STATES [facility] Urea nitrogen [Mass/Vol] 25 mg/dL High 9-24 [facility] Comment on above: Order Comment: Shira feldman Type: BLOOD SPECIMENOrdering Facility: [facility] Address: [address] [place] [address] Performed By: #### 2 4320-06, ####[facility] LABORATORYCLIA [id number] [address] [place] CASE MANAGEMon 06-22-2021 CASE MANAGEM Normal [facility] CBC panel Auto (Bld)on 06-22 Erythrocyte distribution width (RBC) [Ratio] 16.0 % High 11.5-15.0 [facility] Comment on above: Order Comment: Speci men Type: BLOOD SPECIMENOrdering Facility: [facility] Address: [address] [place] [address] Performed By: #### 5 8410-2 ####[facility] LABORATORYCLIA [id number] [address] Hematocrit (Bld) [Volume fraction] 30.5 % Low 39.0-51.0 [facility] Comment on above: Order Comment: Speci men Type: BLOOD SPECIMENOrdering Facility: [facility] Address: [address] [place] [address] Performed By: #### 5 8410-2 ####[facility] LABORATORYCLIA [id number] [address] OF [facility] Hemoglobin (Bld) [Mass/Vol] 9.3 g/dL Low 13.0-17.0 [facility] Comment on above: Order Comment: Speci men Type: BLOOD SPECIMENOrdering Facility: [facility] Address: [address] [place] [address] Performed By: #### 5 8410-2 ####[facility] LABORATORYCLIA [id number] [address] MCH (RBC) [Entitic mass] 28.4 pg Normal 26.0-34.0 [facility] Comment on above: Order Comment: Speci men Type: BLOOD SPECIMENOrdering Facility: [facility] Address: [address] [place] [address] Performed By: #### 5 8410-2 ####[facility] LABORATORYCLIA [id number] [address] MCHC (RBC) [Mass/Vol] 30.5 g/dL Normal 30.5-36.0 [facility] Comment on above: Order Comment: Speci men Type: BLOOD SPECIMENOrdering Facility: [facility] Address: [address] [place] [address] Performed By: #### 5 8410-2 ####[facility] LABORATORYCLIA [id number] [address] MCV (RBC) [Entitic vol] 93.3 fL Normal 80.0-100.0 [facility] Comment on above: Order Comment: Speci men Type: BLOOD SPECIMENOrdering Facility: [facility] Address: [address] [place] [address] Performed By: #### 5 8410-2 ####[facility] LABORATORYCLIA [id number] [address] Nucleated RBC (Bld) [#/Vol] 10*3/uL Normal <0.01 [facility] Comment on above: Order Comment: Speci men Type: BLOOD SPECIMENOrdering Facility: [facility] Address: [address] [place] [address] Performed By: #### 5 8410-2 ####[facility] LABORATORYCLIA [id number] [address] Platelet mean volume (Bld) [Entitic vol] 11.5 fL Normal 9.0-12.7 [facility] Comment on above: Order Comment: Speci men Type: BLOOD SPECIMENOrdering Facility: [facility] Address: [address] [place] [address] Performed By: #### 5 8410-2 ####[facility] LABORATORYCLIA [id number] [address] Platelets (Bld) [#/Vol] 346 10*3/uL Normal 150-400 [facility] Comment on above: Order Comment: Speci men Type: BLOOD SPECIMENOrdering Facility: [facility] Address: [address] [place] [address] Performed By: #### 5 8410-2 ####[facility] LABORATORYCLIA [id number] [address] [place] RBC (Bld) [#/Vol] 3.27 10*6/uL Low 4.20-6.00 [facility] Comment on above: Order Comment: Speci men Type: BLOOD SPECIMENOrdering Facility: [facility] Address: [address] [place] [address] Performed By: #### 5 8410-2 ####[facility] LABORATORYCLIA [id number] [address] [place] WBC (Bld) [#/Vol] 9.44 10*3/uL Normal 3.70-11.00 [facility] Comment on above: Order Comment: Speci men Type: BLOOD SPECIMENOrdering Facility: [facility] Address: [address] [place] [address] Performed By: #### 5 8410-2 ####[facility]ITALCLIA [id number] [address] OF [facility] HEMOGLOBIN (HGB)on Hemoglobin (Bld) [Mass/Vol] 9.7 g/dL Low 13.0-17.0 [facility] Comment on above: Order Comment: Speci men Type: BLOOD SPECIMENOrdering Facility: [facility] Address: [address] [place] [address] Performed By: #### H GB ####[facility] LABORATORYCLIA [id number] [address] [facility] Magnesium SerPl-mCncon 06-22 Magnesium [Mass/Vol] 2.4 mg/dL High 1.7-2.3 [facility] Comment on above: Order Comment: Speci men Type: BLOOD SPECIMENOrdering Facility: [facility] Address: [address] [place] [address] Performed By: #### 2 4321-2, 35478-3 ####[facility] LABORATORYCLIA [id number] [address] [place] THERAPY NTon 06-22-2021 THERAPY NT Normal [facility] THERAPY NT Normal [facility] aPTT PPPon 06-22-2021 aPTT Coag (PPP) [Time] 62.3 s High 23.0-32.4 [facility] Comment on above: Order Comment: Speci men Type: BLOOD SPECIMENOrdering Facility: [facility] Address: [address] [place] [address] Performed By: #### 1 4979-9 ####[facility] LABORATORYCLIA [id number] [place] [address] [place] ALLIED HEALTHon 06-21-2021 ALLIED HEALTH Normal [facility] Basic metabolic 2000 panelon 06-21-2021 Anion gap [Moles/Vol] 8 mmol/L Low 9-18 [facility] Comment on above: Order Comment: Speci men Type: BLOOD SPECIMENOrdering Facility: [facility] Address: [address] [place] [address] Performed By: #### 2 4321-2, ####[facility] LABORATORYCLIA [id number] [place] [address] [place] Calcium [Mass/Vol] 8.2 mg/dL Low 8.5-10.2 [facility] Comment on above: Order Comment: Speci men Type: BLOOD SPECIMENOrdering Facility: [facility] Address: [address] [place] [address] Performed By: #### 2 4321-2, ####[facility] LABORATORYCLIA [id number] [place] [address] [place] Chloride [Moles/Vol] 108 mmol/L High 97-105 [facility] Comment on above: Order Comment: Speci men Type: BLOOD SPECIMENOrdering Facility: [facility] Address: [address] [place] [address] Performed By: #### 2 4321-2, ####[facility] LABORATORYCLIA [id number] [place] [address] [place] CO2 [Moles/Vol] 24 mmol/L Normal 22-30 [facility] Comment on above: Order Comment: Speci men Type: BLOOD SPECIMENOrdering Facility: [facility] Address: [address] [place] [address] Performed By: #### 2 4321-2, ####[facility] LABORATORYCLIA [id number] [place] [address] [place] Creatinine [Mass/Vol] 0.61 mg/dL Low 0.73-1.22 [facility] Comment on above: Order Comment: Shira feldman Type: BLOOD SPECIMENOrdering Facility: [facility] Address: [address] [place], [place] [address] Performed By: #### 2 432-2, ####[facility]ITALCLIA [id number] [place] [address] [place] GFR/1.73 sq M.predicted MDRD (S/P/Bld) [Vol rate/Area] mL/min/{1.73_m2} Normal [facility] Comment on above: Order Comment: [facility] Type: BLOOD SPECIMENOrdering Facility: [facility] Address: [address] [place] [address] Result Comment: >60e GFR (Estimated GFR) Units [...] By: #### 2 4321-2, ####[facility] LABORATORYCLIA [id number] [place] [address] [place] Glucose [Mass/Vol] 211 mg/dL High 74-99 [facility] Comment on above: Order Comment: Shira feldman Type: BLOOD SPECIMENOrdering Facility: [facility] Address: [address] [address] Result Comment: The [place] Diabetes Association (ADA) provides guidance for cutoff [...] Standards of Medical Care in Diabetes 2016, [place] Diabetes Association. Diabetes Care. 2016.39(Suppl 1). Performed By: #### 2 4320-06, ####[facility] LABORATORYCLIA [id number] [place] [address] [place] Potassium [Moles/Vol] 4.3 mmol/L Normal 3.7-5.1 [facility] Comment on above: Order Comment: Speci men Type: BLOOD SPECIMENOrdering Facility: [facility] Address: [address] [place] [address] Performed By: #### 2 ####[facility]ITAL[facility] [id number] [address] STATES OF [facility] Sodium [Moles/Vol] 140 mmol/L Normal 136-144 [facility] Comment on above: Order Comment: Speci men Type: BLOOD SPECIMENOrdering Facility: [facility] Address: [address] [place] [address] Performed By: #### 2 4320-06, ####[facility] LABORATORYCLIA [id number] [place] [address] [place] Urea nitrogen [Mass/Vol] 26 mg/dL High 9-24 [facility] Comment on above: Order Comment: Speci men Type: BLOOD SPECIMENOrdering Facility: [facility] Address: [address] [address] Performed By: #### 2 ####[facility] LABORATORYCLIA [id number] [address] CBC panel Auto (Bld)on 06-21 Erythrocyte distribution width (RBC) [Ratio] 16.1 % High 11.5-15.0 [facility] Comment on above: Order Comment: Speci men Type: BLOOD SPECIMENOrdering Facility: [facility] Address: [address] [place] [address] Performed By: #### 5 8410-2 ####[facility] LABORATORYCLIA [id number] [address] Hematocrit (Bld) [Volume fraction] 29.7 % Low 39.0-51.0 [facility] Comment on above: Order Comment: Speci men Type: BLOOD SPECIMENOrdering Facility: [facility] Address: [address] [place] [address] Performed By: #### 5 8410-2 ####[facility] LABORATORYCLIA [id number] [address] Hemoglobin (Bld) [Mass/Vol] 9.2 g/dL Low 13.0-17.0 [facility] Comment on above: Order Comment: Speci men Type: BLOOD SPECIMENOrdering Facility: [facility] Address: [address] [place] [address] Performed By: #### 5 8410-2 ####[facility] LABORATORYCLIA [id number] [address] MCH (RBC) [Entitic mass] 28.8 pg Normal 26.0-34.0 [facility] Comment on above: Order Comment: Speci men Type: BLOOD SPECIMENOrdering Facility: [facility] Address: [address] [place] [address] Performed By: #### 5 8410-2 ####[facility] LABORATORYCLIA [id number] [address] MCHC (RBC) [Mass/Vol] 31.0 g/dL Normal 30.5-36.0 [facility] Comment on above: Order Comment: Speci men Type: BLOOD SPECIMENOrdering Facility: [facility] Address: [address] [address] Performed By: #### 5 8410-2 ####[facility] LABORATORYCLIA [id number] [address] MCV (RBC) [Entitic vol] 93.1 fL Normal 80.0-100.0 [facility] Comment on above: Order Comment: Speci men Type: BLOOD SPECIMENOrdering Facility: [facility] Address: [address] [place] [address] Performed By: #### 5 8410-2 ####[facility] LABORATORYCLIA [id number] [address] Nucleated RBC (Bld) [#/Vol] 10*3/uL Normal <0.01 [facility] Comment on above: Order Comment: Speci men Type: BLOOD SPECIMENOrdering Facility: [facility] Address: [address] [place] [address] Performed By: #### 5 8410-2 ####[facility] LABORATORYCLIA [id number] [address] Platelet mean volume (Bld) [Entitic vol] 11.6 fL Normal 9.0-12.7 [facility] Comment on above: Order Comment: Speci men Type: BLOOD SPECIMENOrdering Facility: [facility] Address: [address] [place] [address] Performed By: #### 5 8410-2 ####[facility] LABORATORYCLIA [id number] [address] Platelets (Bld) [#/Vol] 347 10*3/uL Normal 150-400 [facility] Comment on above: Order Comment: Speci men Type: BLOOD SPECIMENOrdering Facility: [facility] Address: [address] [place] [address] Performed By: #### 5 8410-2 ####[facility] LABORATORYCLIA [id number] [place] [address] [place] RBC (Bld) [#/Vol] 3.19 10*6/uL Low 4.20-6.00 [facility] Comment on above: Order Comment: Speci men Type: BLOOD SPECIMENOrdering Facility: [facility] Address: [address] [place] [address] Performed By: #### 5 8410-2 ####[facility] LABORATORYCLIA [id number] [place] [address] [place] WBC (Bld) [#/Vol] 10.29 10*3/uL Normal 3.70-11.00 [facility] Comment on above: Order Comment: Speci men Type: BLOOD SPECIMENOrdering Facility: [facility] Address: [address] [place] [address] Performed By: #### 5 8410-2 ####[facility] LABORATORYCLIA [id number] [address] CONSULT PROGon 06-21-2021 CONSULT PROG Normal [facility] CONSULT PROG Normal [facility] Magnesium SerPl-mCncon 06-21 Magnesium [Mass/Vol] 2.5 mg/dL High 1.7-2.3 [facility] Comment on above: Order Comment: Speci men Type: BLOOD SPECIMENOrdering Facility: [facility] Address: [address] [place] [address] Performed By: #### 2 4321-2, 70810-3 ####[facility] LABORATORYCLIA [id number] [address] [place] NUTRITIONon 06-21-2021 NUTRITION Normal [facility] XR CHEST 1V FRONTALon 2021 XR CHEST 1V FRONTAL Normal [facility] aPTT PPPon 06-21-2021 aPTT Coag (PPP) [Time] 68.5 s High 23.0-32.4 [facility] Comment on above: Order Comment: Speci men Type: BLOOD SPECIMENOrdering Facility: [facility] Address: [address] [place] [address] Performed By: #### 1 4979-9 ####[facility] LABORATORYCLIA [id number] [place] [id number] [place] aPTT Coag (PPP) [Time] 57.8 s High 23.0-32.4 [facility] Comment on above: Order Comment: Speci men Type: BLOOD SPECIMENOrdering Facility: [facility] Address: [address] [place] [address] Performed By: #### 1 4979-9 ####[facility] LABORATORYCLIA [id number] [place] [address] [place] Basic metabolic 2000 panelon 06-20-2021 Anion gap [Moles/Vol] 9 mmol/L Normal 9-18 [facility] Comment on above: Order Comment: Speci men Type: BLOOD SPECIMENOrdering Facility: [facility] Address: [address] [place] [address] Performed By: #### 2 43205-08, ####[facility] LABORATORYCLIA [id number] [place] [address] [place] Calcium [Mass/Vol] 8.3 mg/dL Low 8.5-10.2 [facility] Comment on above: Order Comment: Speci men Type: BLOOD SPECIMENOrdering Facility: [facility] Address: [address] [place] [address] Performed By: #### 2 432-2, ####[facility] LABORATORYCLIA [id number] [address] [place] Chloride [Moles/Vol] 111 mmol/L High 97-105 [facility] Comment on above: Order Comment: Speci men Type: BLOOD SPECIMENOrdering Facility: [facility] Address: [address] [place] [address] Performed By: #### 2 432-2, ####[facility] LABORATORYCLIA [id number] [place] [address] [place] CO2 [Moles/Vol] 24 mmol/L Normal 22-30 [facility] Comment on above: Order Comment: Speci francia Type: BLOOD SPECIMENOrdering Facility: [facility] Address: [address] [place] [address] Performed By: #### 2 432-, ####[facility] LABORATORYCLIA [id number] [place] [id number] [place] Creatinine [Mass/Vol] 0.64 mg/dL Low 0.73-1.22 [facility] Comment on above: Order Comment: Speci men Type: BLOOD SPECIMENOrdering Facility: [facility] Address: [address] [place] [address] Performed By: #### 2 43205-08, ####[facility]PITALCLIA [id number] [place] [address] [place] GFR/1.73 sq M.predicted MDRD (S/P/Bld) [Vol rate/Area] mL/min/{1.73_m2} Normal [facility] Comment on above: Order Comment: Speci francia Type: BLOOD SPECIMENOrdering Facility: [facility] Address: [address] [place] [address] Result Comment: >60e GFR (Estimated GFR) Units [...] By: #### 2 432-, ####[facility] LABORATORYCLIA [id number] [place] [id number] [place] Glucose [Mass/Vol] 114 mg/dL High 74-99 [facility] Comment on above: Order Comment: Speci men Type: BLOOD SPECIMENOrdering Facility: [facility] Address: [address] [id number] Result Comment: The [place] Diabetes Association (ADA) provides guidance for cutoff [...] Standards of Medical Care in Diabetes 2016, [place] Diabetes Association. Diabetes Care. 2016.39(Suppl 1). Performed By: #### 2 4320-, ####[facility] LABORATORYCLIA [id number] [place] [address] [place] Potassium [Moles/Vol] 4.1 mmol/L Normal 3.7-5.1 [facility] Comment on above: Order Comment: Speci men Type: BLOOD SPECIMENOrdering Facility: [facility] Address: [address] [address] Performed By: #### 2 4320-06, ####[facility] LABORATORYCLIA [id number] [place] [address] [place] Sodium [Moles/Vol] 144 mmol/L Normal 136-144 [facility] Comment on above: Order Comment: Speci men Type: BLOOD SPECIMENOrdering Facility: [facility] Address: [address] Performed By: #### 2 4320-06, ####[facility] LABORATORYCLIA [id number] [place] [address] [place] Urea nitrogen [Mass/Vol] 27 mg/dL High 9-24 [facility] Comment on above: Order Comment: Speci men Type: BLOOD SPECIMENOrdering Facility: [facility] Address: [address] Performed By: #### 2 4321-2, 28848-7 ####[facility] LABORATORYCLIA [id number] [address] CASE MANAGEMon 06-20-2021 CASE MANAGEM Normal [facility] CBC panel Auto (Bld)on 06-20 Erythrocyte distribution width (RBC) [Ratio] 15.9 % High 11.5-15.0 [facility] Comment on above: Order Comment: Speci men Type: BLOOD SPECIMENOrdering Facility: [facility] Address: [address] [place] [address] Performed By: #### 5 8410-2 ####[facility] LABORATORYCLIA [id number] [address] Hematocrit (Bld) [Volume fraction] 31.0 % Low 39.0-51.0 [facility] Comment on above: Order Comment: Speci men Type: BLOOD SPECIMENOrdering Facility: [facility] Address: [address] [place] [address] Performed By: #### 5 8410-2 ####[facility] LABORATORYCLIA [id number] [address] Hemoglobin (Bld) [Mass/Vol] 9.2 g/dL Low 13.0-17.0 [facility] Comment on above: Order Comment: Speci men Type: BLOOD SPECIMENOrdering Facility: [facility] Address: [address] [place] [address] Performed By: #### 5 8410-2 ####[facility] LABORATORYCLIA [id number] [address] MCH (RBC) [Entitic mass] 27.4 pg Normal 26.0-34.0 [facility] Comment on above: Order Comment: Speci men Type: BLOOD SPECIMENOrdering Facility: [facility] Address: [address] [place] [address] Performed By: #### 5 8410-2 ####[facility] LABORATORYCLIA [id number] [address] MCHC (RBC) [Mass/Vol] 29.7 g/dL Low 30.5-36.0 [facility] Comment on above: Order Comment: Speci men Type: BLOOD SPECIMENOrdering Facility: [facility] Address: [address] [place] [address] Performed By: #### 5 8410-2 ####[facility] LABORATORYCLIA [id number] [address] STATES [facility] MCV (RBC) [Entitic vol] 92.3 fL Normal 80.0-100.0 [facility] Comment on above: Order Comment: Speci men Type: BLOOD SPECIMENOrdering Facility: [facility] Address: [address] [place] [address] Performed By: #### 5 8410-2 ####[facility] LABORATORYCLIA [id number] [address] Nucleated RBC (Bld) [#/Vol] 10*3/uL Normal <0.01 [facility] Comment on above: Order Comment: Speci men Type: BLOOD SPECIMENOrdering Facility: [facility] Address: [address] [place] [address] Performed By: #### 5 8410-2 ####[facility] LABORATORYCLIA [id number] [address] [place] Platelet mean volume (Bld) [Entitic vol] 11.5 fL Normal 9.0-12.7 [facility] Comment on above: Order Comment: Speci men Type: BLOOD SPECIMENOrdering Facility: [facility] Address: [address] [place] [address] Performed By: #### 5 8410-2 ####[facility] LABORATORYCLIA [id number] [address] Platelets (Bld) [#/Vol] 343 10*3/uL Normal 150-400 [facility] Comment on above: Order Comment: Speci men Type: BLOOD SPECIMENOrdering Facility: [facility] Address: [address] [place] [address] Performed By: #### 5 8410-2 ####[facility] LABORATORYCLIA [id number] [address] OF [facility] RBC (Bld) [#/Vol] 3.36 10*6/uL Low 4.20-6.00 [facility] Comment on above: Order Comment: Speci men Type: BLOOD SPECIMENOrdering Facility: [facility] Address: [address] [place] [address] Performed By: #### 5 8410-2 ####[facility] LABORATORYCLIA [id number] [address] OF [facility] WBC (Bld) [#/Vol] 10.71 10*3/uL Normal 3.70-11.00 [facility] Comment on above: Order Comment: Speci men Type: BLOOD SPECIMENOrdering Facility: [facility] Address: [address] [place] [address] Performed By: #### 5 8410-2 ####[facility] LABORATORYCLIA [id number] [address] CONSULT PROGon 06-20-2021 CONSULT PROG Normal [facility] HEMOGLOBIN (HGB)on 2 Hemoglobin (Bld) [Mass/Vol] 9.7 g/dL Low 13.0-17.0 [facility] Comment on above: Order Comment: Speci men Type: BLOOD SPECIMENOrdering Facility: [facility] Address: [address] [place] [address] Performed By: #### H GB ####[facility] LABORATORYCLIA [id number] [address] Magnesium SerPl-mCncon 06-20 Magnesium [Mass/Vol] 2.5 mg/dL High 1.7-2.3 [facility] Comment on above: Order Comment: Speci men Type: BLOOD SPECIMENOrdering Facility: [facility] Address: [address] [place] [address] Performed By: #### 2 4321-2, 88716-7 ####[facility] LABORATORYCLIA [id number] [address] OF [facility] NURSING PROGon 06-20-2021 NURSING PROG Normal [facility] THERAPY NTon 06-20-2021 THERAPY NT Normal [facility] aPTT PPPon 06-20-2021 aPTT Coag (PPP) [Time] 93.5 s High 23.0-32.4 [facility] Comment on above: Order Comment: Speci men Type: BLOOD SPECIMENOrdering Facility: [facility] Address: [address] [place] [address] Performed By: #### 1 4979-9 ####[facility] LABORATORYCLIA [id number] [address] aPTT Coag (PPP) [Time] 47.1 s High 23.0-32.4 [facility] Comment on above: Order Comment: Speci men Type: BLOOD SPECIMENOrdering Facility: [facility] Address: [address] [place] [address] Performed By: #### 1 4979-9 ####[facility] LABORATORYCLIA [id number] [address] [place] Basic metabolic 2000 panelon 06-19-2021 Anion gap [Moles/Vol] 7 mmol/L Low 9-18 [facility] Comment on above: Order Comment: Speci men Type: BLOOD SPECIMENOrdering Facility: [facility] Address: [address] [address] Performed By: #### 2 4321-2 ####[facility] LABORATORYCLIA [id number] [address] STATES OF [facility] Calcium [Mass/Vol] 8.1 mg/dL Low 8.5-10.2 [facility] Comment on above: Order Comment: Speci men Type: BLOOD SPECIMENOrdering Facility: [facility] Address: [facility] [address] Performed By: #### 2 4321-2 ####[facility] LABORATORYCLIA [id number] [place] [address] [place] Chloride [Moles/Vol] 111 mmol/L High 97-105 [facility] Comment on above: Order Comment: Speci men Type: BLOOD SPECIMENOrdering Facility: [facility] Address: [address] [place] [address] Performed By: #### 2 4321-2 ####[facility] LABORATORYCLIA [id number] [address] [place] CO2 [Moles/Vol] 24 mmol/L Normal 22-30 [facility] Comment on above: Order Comment: Speci men Type: BLOOD SPECIMENOrdering Facility: [facility] Address: [address] [place] [address] Performed By: #### 2 4321-2 ####[facility] LABORATORYCLIA [id number] [address] Creatinine [Mass/Vol] 0.71 mg/dL Low 0.73-1.22 [facility] Comment on above: Order Comment: Speci men Type: BLOOD SPECIMENOrdering Facility: [facility] Address: [address] [place] [address] Performed By: #### 2 4321-2 ####[facility] LABORATORYCLIA [id number] [address] [place] GFR/1.73 sq M.predicted MDRD (S/P/Bld) [Vol rate/Area] mL/min/{1.73_m2} Normal [facility] Comment on above: Order Comment: Speci men Type: BLOOD SPECIMENOrdering Facility: [facility] Address: [address] [place] [address] Result Comment: >60e GFR (Estimated GFR) Units [...] By: #### 2 4321-2 ####[facility] LABORATORYCLIA [id number] [place] [address] [place] Glucose [Mass/Vol] 110 mg/dL High 74-99 [facility] Comment on above: Order Comment: Speci men Type: BLOOD SPECIMENOrdering Facility: [facility] Address: [address] [place], [place] [address] Result Comment: The [place] Diabetes Association (ADA) provides guidance for cutoff [...] Standards of Medical Care in Diabetes 2016, [place] Diabetes Association. Diabetes Care. 2016.39(Suppl 1). Performed By: #### 2 4321-2 ####[facility] LABORATORYCLIA [id number] [place] [address] [place] Potassium [Moles/Vol] 3.7 mmol/L Normal 3.7-5.1 [facility] Comment on above: Order Comment: Shira feldman Type: BLOOD SPECIMENOrdering Facility: [facility] Address: [address] [place] [address] Performed By: #### 2 4321-2 ####[facility] LABORATORYCLIA [id number] [place] [id number] [place] Sodium [Moles/Vol] 142 mmol/L Normal 136-144 [facility] Comment on above: Order Comment: Johni men Type: BLOOD SPECIMENOrdering Facility: [facility] Address: [address] [place] [address] Performed By: #### 2 4321-2 ####[facility] LABORATORYCLIA [id number] [address] Urea nitrogen [Mass/Vol] 26 mg/dL High 9-24 [facility] Comment on above: Order Comment: Speci men Type: BLOOD SPECIMENOrdering Facility: [facility] Address: [address] [place] [address] Performed By: #### 2 4321-2 ####[facility] LABORATORYCLIA [id number] [address] CBC panel Auto (Bld)on 06-19 Erythrocyte distribution width (RBC) [Ratio] 15.7 % High 11.5-15.0 [facility] Comment on above: Order Comment: Speci men Type: BLOOD SPECIMENOrdering Facility: [facility] Address: [address] [place] [address] Performed By: #### 5 8410-2 ####[facility] LABORATORYCLIA [id number] [address] Hematocrit (Bld) [Volume fraction] 30.9 % Low 39.0-51.0 [facility] Comment on above: Order Comment: Speci men Type: BLOOD SPECIMENOrdering Facility: [facility] Address: [address] [place] [address] Performed By: #### 5 8410-2 ####[facility] LABORATORYCLIA [id number] [address] STATES [facility] Hemoglobin (Bld) [Mass/Vol] 9.5 g/dL Low 13.0-17.0 [facility] Comment on above: Order Comment: Speci men Type: BLOOD SPECIMENOrdering Facility: [facility] Address: [address] [place] [address] Performed By: #### 5 8410-2 ####[facility] LABORATORYCLIA [id number] [address] MCH (RBC) [Entitic mass] 28.4 pg Normal 26.0-34.0 [facility] Comment on above: Order Comment: Speci men Type: BLOOD SPECIMENOrdering Facility: [facility] Address: [address] [place] [address] Performed By: #### 5 8410-2 ####[facility] LABORATORYCLIA [id number] [address] MCHC (RBC) [Mass/Vol] 30.7 g/dL Normal 30.5-36.0 [facility] Comment on above: Order Comment: Speci men Type: BLOOD SPECIMENOrdering Facility: [facility] Address: [address] [place] [address] Performed By: #### 5 8410-2 ####[facility] LABORATORYCLIA [id number] [address] MCV (RBC) [Entitic vol] 92.2 fL Normal 80.0-100.0 [facility] Comment on above: Order Comment: Speci men Type: BLOOD SPECIMENOrdering Facility: [facility] Address: [address] [place] [address] Performed By: #### 5 8410-2 ####[facility] LABORATORYCLIA [id number] [address] Nucleated RBC (Bld) [#/Vol] 10*3/uL Normal <0.01 [facility] Comment on above: Order Comment: Speci men Type: BLOOD SPECIMENOrdering Facility: [facility] Address: [address] [place] [address] Performed By: #### 5 8410-2 ####[facility] LABORATORYCLIA [id number] [address] Platelet mean volume (Bld) [Entitic vol] 11.7 fL Normal 9.0-12.7 [facility] Comment on above: Order Comment: Speci men Type: BLOOD SPECIMENOrdering Facility: [facility] Address: [address] Performed By: #### 5 8410-2 ####[facility] LABORATORYCLIA [id number] [address] [facility] Platelets (Bld) [#/Vol] 323 10*3/uL Normal 150-400 [facility] Comment on above: Order Comment: Speci men Type: BLOOD SPECIMENOrdering Facility: [facility] Address: [address] [place] [address] Performed By: #### 5 8410-2 ####[facility] LABORATORYCLIA [id number] [address] [place] [facility] RBC (Bld) [#/Vol] 3.35 10*6/uL Low 4.20-6.00 [facility] Comment on above: Order Comment: Speci men Type: BLOOD SPECIMENOrdering Facility: [facility] Address: [address] [place] [address] Performed By: #### 5 8410-2 ####[facility] LABORATORYCLIA [id number] [address] WBC (Bld) [#/Vol] 9.53 10*3/uL Normal 3.70-11.00 [facility] Comment on above: Order Comment: Speci men Type: BLOOD SPECIMENOrdering Facility: [facility] Address: [address] [place] [address] Performed By: #### 5 8410-2 ####[facility] LABORATORYCLIA [id number] [address] HEMOGLOBIN (HGB)on 2 Hemoglobin (Bld) [Mass/Vol] 9.7 g/dL Low 13.0-17.0 [facility] Comment on above: Order Comment: Speci men Type: BLOOD SPECIMENOrdering Facility: [facility] Address: [address] [place] [address] Performed By: #### H GB ####[facility] LABORATORYCLIA [id number] [address] Magnesium SerPl-mCncon 06-19 Magnesium [Mass/Vol] 2.5 mg/dL High 1.7-2.3 [facility] Comment on above: Order Comment: Speci men Type: BLOOD SPECIMENOrdering Facility: [facility] Address: [address] [place] [address] Performed By: #### 1 9123-9, 2777-1 ####[facility] LABORATORYCLIA [id number] [address] NURSING PROGon 06-19-2021 NURSING PROG Normal [facility] Phosphate SerPl-mCncon 06-19 Phosphate [Mass/Vol] 2.6 mg/dL Low 2.7-4.8 [facility] Comment on above: Order Comment: Speci men Type: BLOOD SPECIMENOrdering Facility: [facility] Address: [address] [place] [address] Performed By: #### 1 9123-9, 2777-1 ####[facility] LABORATORYCLIA [id number] [address] aPTT PPPon 06-19-2021 aPTT Coag (PPP) [Time] 61.9 s High 23.0-32.4 [facility] Comment on above: Order Comment: Speci men Type: BLOOD SPECIMENOrdering Facility: [facility] Address: [address] [place] [address] Performed By: #### 1 4979-9 ####[facility] LABORATORYCLIA [id number] [address] STATES [facility] aPTT Coag (PPP) [Time] 68.6 s High 23.0-32.4 [facility] Comment on above: Order Comment: Speci men Type: BLOOD SPECIMENOrdering Facility: [facility] Address: [address] [place] [address] Performed By: #### 1 4979-9 ####[facility] LABORATORYCLIA [id number] [place] [address] [place] aPTT Coag (PPP) [Time] 83.2 s High 23.0-32.4 [facility] Comment on above: Order Comment: Speci men Type: BLOOD SPECIMENOrdering Facility: [facility] Address: [address] [place] [address] Performed By: #### 1 4979-9 ####[facility] LABORATORYCLIA [id number] [place] [address] [place] Basic metabolic 2000 panelon 06-18-2021 Anion gap [Moles/Vol] 7 mmol/L Low 9-18 [facility] Comment on above: Order Comment: Speci men Type: BLOOD SPECIMENOrdering Facility: [facility] Address: [address] [place] [address] Performed By: #### 2 4321-2, , 2776-05 ####[facility] LABORATORYCLIA [id number] [place] [address] [place] Calcium [Mass/Vol] 8.2 mg/dL Low 8.5-10.2 [facility] Comment on above: Order Comment: Speci men Type: BLOOD SPECIMENOrdering Facility: [facility] Address: [address] [place] [address] Performed By: #### 2 4321-2, , 2776-05 ####[facility] LABORATORYCLIA [id number] [place] [address] [place] Chloride [Moles/Vol] 115 mmol/L High 97-105 [facility] Comment on above: Order Comment: Speci men Type: BLOOD SPECIMENOrdering Facility: [facility] Address: [address] [place] [address] Performed By: #### 2 4321-2, , 2776-05 ####[facility] LABORATORYCLIA [id number] [place] [address] [place] CO2 [Moles/Vol] 23 mmol/L Normal 22-30 [facility] Comment on above: Order Comment: Speci men Type: BLOOD SPECIMENOrdering Facility: [facility] Address: [address] [place], [place] [address] Performed By: #### 2 4321-2, , 2776-05 ####[facility] LABORATORYCLIA [id number] [place] [address] [place] Creatinine [Mass/Vol] 0.70 mg/dL Low 0.73-1.22 [facility] Comment on above: Order Comment: Speci men Type: BLOOD SPECIMENOrdering Facility: [facility] Address: [address] [place] [address] Performed By: #### 2 4321-2, , 2776-05 ####[facility] LABORATORYCLIA [id number] [place] [address] [place] GFR/1.73 sq M.predicted MDRD (S/P/Bld) [Vol rate/Area] mL/min/{1.73_m2} Normal [facility] Comment on above: Order Comment: Shira francia Type: BLOOD SPECIMENOrdering Facility: [facility] Address: [address] [place] [address] Result Comment: >60e GFR (Estimated GFR) Units [...] 2 4321-2, , 2776-05 ####[facility] LABORATORYCLIA [id number] [place] [address] [place] Glucose [Mass/Vol] 105 mg/dL High 74-99 [facility] Comment on above: Order Comment: Johni francia Type: BLOOD SPECIMENOrdering Facility: [facility] Address: [address] [address] Result Comment: The [place] Diabetes Association (ADA) provides guidance for cutoff [...] Standards of Medical Care in Diabetes 2016, [place] Diabetes Association. Diabetes Care. 2016.39(Suppl 1). Performed By: #### 2 4321-2, , 2776-05 ####[facility] LABORATORYCLIA [id number] [place] [address] [place] Potassium [Moles/Vol] 4.1 mmol/L Normal 3.7-5.1 [facility] Comment on above: Order Comment: Speci men Type: BLOOD SPECIMENOrdering Facility: [facility] Address: [address] [address] Performed By: #### 2 4321-2, , 2776-05 ####[facility] LABORATORYCLIA [id number] [place] [address] [place] Sodium [Moles/Vol] 145 mmol/L High 136-144 [facility] Comment on above: Order Comment: Speci men Type: BLOOD SPECIMENOrdering Facility: [facility] Address: [address] [address] Performed By: #### 2 4321-2, , 2776-05 ####[facility] LABORATORYCLIA [id number] [place] [address] [place] Urea nitrogen [Mass/Vol] 27 mg/dL High 9-24 [facility] Comment on above: Order Comment: Speci men Type: BLOOD SPECIMENOrdering Facility: [facility] Address: [address] [address] Performed By: #### 2 4321-2, 07817-2, 2777-1 ####[facility] LABORATORYCLIA [id number] [address] CALCIUM IONIZED Bon 06-18-19 Calcium.ionized (BldV) [Mass/Vol] 1.22 mmol/L Normal 1.08-1.30 [facility] Comment on above: Order Comment: Speci men Type: BLOOD SPECIMENOrdering Facility: [facility] Address: [address] [place] [address] Performed By: #### I CA ####[facility] LABORATORYCLIA [id number] [address] Calcium.ionized adjusted to pH 7.4 (Bld) [Moles/Vol] 1.23 mmol/L Normal 1.08-1.30 [facility] Comment on above: Order Comment: Speci men Type: BLOOD SPECIMENOrdering Facility: [facility] Address: [address] [place] [address] Performed By: #### I CA ####[facility] LABORATORYCLIA [id number] [address] CBC panel Auto (Bld)on 06-18 Erythrocyte distribution width (RBC) [Ratio] 15.8 % High 11.5-15.0 [facility] Comment on above: Order Comment: Speci men Type: BLOOD SPECIMENOrdering Facility: [facility] Address: [address] [place] [address] Performed By: #### 5 8410-2 ####[facility] LABORATORYCLIA [id number] [address] Hematocrit (Bld) [Volume fraction] 29.5 % Low 39.0-51.0 [facility] Comment on above: Order Comment: Speci men Type: BLOOD SPECIMENOrdering Facility: [facility] Address: [address] [place] [address] Performed By: #### 5 8410-2 ####[facility]ITALCLIA [id number] [address] OF [facility] Hemoglobin (Bld) [Mass/Vol] 8.8 g/dL Low 13.0-17.0 [facility] Comment on above: Order Comment: Speci men Type: BLOOD SPECIMENOrdering Facility: [facility] Address: [address] [place] [address] Performed By: #### 5 8410-2 ####[facility] LABORATORYCLIA [id number] [address] MCH (RBC) [Entitic mass] 27.4 pg Normal 26.0-34.0 [facility] Comment on above: Order Comment: Speci men Type: BLOOD SPECIMENOrdering Facility: [facility] Address: [address] [place] [address] Performed By: #### 5 8410-2 ####[facility] LABORATORYCLIA [id number] [address] MCHC (RBC) [Mass/Vol] 29.8 g/dL Low 30.5-36.0 [facility] Comment on above: Order Comment: Speci men Type: BLOOD SPECIMENOrdering Facility: [facility] Address: [address] [place] [address] Performed By: #### 5 8410-2 ####[facility] LABORATORYCLIA [id number] [address] MCV (RBC) [Entitic vol] 91.9 fL Normal 80.0-100.0 [facility] Comment on above: Order Comment: Speci men Type: BLOOD SPECIMENOrdering Facility: [facility] Address: [address] [place] [address] Performed By: #### 5 8410-2 ####[facility] LABORATORYCLIA [id number] [address] Nucleated RBC (Bld) [#/Vol] 10*3/uL Normal <0.01 [facility] Comment on above: Order Comment: Speci men Type: BLOOD SPECIMENOrdering Facility: [facility] Address: [address] [place] [address] Performed By: #### 5 8410-2 ####[facility] LABORATORYCLIA [id number] [address] Platelet mean volume (Bld) [Entitic vol] 11.9 fL Normal 9.0-12.7 [facility] Comment on above: Order Comment: Speci men Type: BLOOD SPECIMENOrdering Facility: [facility] Address: [address] [place] [address] Performed By: #### 5 8410-2 ####[facility] LABORATORYCLIA [id number] [address] [place] Platelets (Bld) [#/Vol] 291 10*3/uL Normal 150-400 [facility] Comment on above: Order Comment: Speci men Type: BLOOD SPECIMENOrdering Facility: [facility] Address: [address] [place] [address] Performed By: #### 5 8410-2 ####[facility] LABORATORYCLIA [id number] [address] [place] RBC (Bld) [#/Vol] 3.21 10*6/uL Low 4.20-6.00 [facility] Comment on above: Order Comment: Speci men Type: BLOOD SPECIMENOrdering Facility: [facility] Address: [address] [place] [address] Performed By: #### 5 8410-2 ####[facility] LABORATORYCLIA [id number] [address] [place] WBC (Bld) [#/Vol] 10.19 10*3/uL Normal 3.70-11.00 [facility] Comment on above: Order Comment: Speci men Type: BLOOD SPECIMENOrdering Facility: [facility] Address: [address] [place] [address] Performed By: #### 5 8410-2 ####[facility] LABORATORYCLIA [id number] [place] [address] [place] FERRITIN BLDon 06-18-2021 Ferritin [Mass/Vol] 600.9 ng/mL High 30.3-565.7 [facility] Comment on above: Order Comment: Speci men Type: BLOOD SPECIMENOrdering Facility: [facility] Address: [address] [place] [address] Performed By: #### S ERFOL, IRON, FERR ####[facility] LABORATORYCLIA [id number] [address] [place] FOLATE SERUMon 06-18-2021 Folate [Mass/Vol] 14.3 ng/mL Normal >4.7 [facility] Comment on above: Order Comment: Speci men Type: BLOOD SPECIMENOrdering Facility: [facility] Address: [address] [place] [address] Performed By: #### S ERFOL, IRON, FERR ####[facility] LABORATORYCLIA [id number] [address] OF [facility] Gas and Carbon monoxide pane l (BldV)on 06-18-2021 Base excess Calc (BldV) [Moles/Vol] 0.5 mmol/L Normal 0-2 [facility] Comment on above: Order Comment: Speci men Type: VENOUS BLOOD SPECIMENOrdering Facility: [facility] Address: [address] [place] [address] Performed By: #### 2 4344-4 ####[facility] LABORATORYCLIA [id number] [address] [place] Body temperature 97.34 [degF] Normal [facility] Comment on above: Order Comment: Speci men Type: VENOUS BLOOD SPECIMENOrdering Facility: [facility] Address: [address] [place] [address] Performed By: #### 2 4344-4 ####[facility] LABORATORYCLIA [id number] [address] [place] CALCIUM IONIZED, PH CORRECTED 1.26 mmol/L Normal 1.08-1.30 [facility] Comment on above: Order Comment: Speci men Type: VENOUS BLOOD SPECIMENOrdering Facility: [facility] Address: [address] [place] [address] Performed By: #### 2 4344-4 ####[facility] LABORATORYCLIA [id number] [place] [address] [place] Calcium.ionized (BldV) [Mass/Vol] 1.25 mmol/L Normal 1.08-1.30 [facility] Comment on above: Order Comment: Speci men Type: VENOUS BLOOD SPECIMENOrdering Facility: [facility] Address: [address] [place] [address] Performed By: #### 2 4344-4 ####[facility] LABORATORYCLIA [id number] [address] [place] Carboxyhemoglobin (BldV) [Mass fraction] 1.5 % Normal 0.0-2.0 [facility] Comment on above: Order Comment: Speci men Type: VENOUS BLOOD SPECIMENOrdering Facility: [facility] Address: [address] [place] [address] Result Comment: Carb oxyhemoglobin Reference Range for Smokers: 2.0-8.0% Performed By: #### 2 4344-4 ####[facility] LABORATORYCLIA [id number] [place] [address] [place] CO2 (BldV) [Partial pressure] 38 mm[Hg] Low 42-55 [facility] Comment on above: Order Comment: Speci men Type: VENOUS BLOOD SPECIMENOrdering Facility: [facility] Address: [address] [place] [address] Performed By: #### 2 4344-4 ####[facility] LABORATORYCLIA [id number] [address] [place] CO2 [Moles/Vol] 22.9 mmol/L Low 25-29 [facility] Comment on above: Order Comment: Speci men Type: VENOUS BLOOD SPECIMENOrdering Facility: [facility] Address: [address] [place] [address] Performed By: #### 2 4344-4 ####[facility] LABORATORYCLIA [id number] [address] CO2 adjusted to patient's actual temperature (BldV) [Partial pressure] 37 mmHg Low 42-55 [facility] Comment on above: Order Comment: Speci men Type: VENOUS BLOOD SPECIMENOrdering Facility: [facility] Address: [address] [place] [address] Performed By: #### 2 4344-4 ####[facility] LABORATORYCLIA [id number] [address] [place] Glucose [Mass/Vol] 103 mg/dL Normal 60-105 [facility] Comment on above: Order Comment: Speci men Type: VENOUS BLOOD SPECIMENOrdering Facility: [facility] Address: [address] [place] [address] Performed By: #### 2 4344-4 ####[facility] LABORATORYCLIA [id number] [address] [place] HCO3 (Bld) [Moles/Vol] 24.4 mmol/L Normal 24-28 [facility] Comment on above: Order Comment: Speci men Type: VENOUS BLOOD SPECIMENOrdering Facility: [facility] Address: [address] [place] [address] Performed By: #### 2 4344-4 ####[facility] LABORATORYCLIA [id number] [address] [place] Hematocrit (Bld) [Volume fraction] 28.7 % Low 39.0-51.0 [facility] Comment on above: Order Comment: Speci men Type: VENOUS BLOOD SPECIMENOrdering Facility: [facility] Address: [address] [place] [address] Performed By: #### 2 4344-4 ####[facility] LABORATORYCLIA [id number] [address] [place] Hemoglobin (Bld) [Mass/Vol] 9.3 g/dL Low 13.0-17.0 [facility] Comment on above: Order Comment: Speci men Type: VENOUS BLOOD SPECIMENOrdering Facility: [facility] Address: [address] [address] Performed By: #### 2 4344-4 ####[facility]ORATORYCLIA [id number] [address] Methemoglobin (Bld) [Mass fraction] % Normal 0.0-1.5 [facility] Comment on above: Order Comment: Speci men Type: VENOUS BLOOD SPECIMENOrdering Facility: [facility] Address: [address] [address] Performed By: #### 2 4344-4 ####[facility]ORYCLIA [id number] [address] O2 THERAPY Ventilator Normal [facility] Comment on above: Order Comment: Speci men Type: VENOUS BLOOD SPECIMENOrdering Facility: [facility] Address: [address] [place] [address] Performed By: #### 2 4344-4 ####[facility]ATORYCLIA [id number] [address] Oxygen (BldV) [Partial pressure] 37 mm[Hg] Normal 35-45 [facility] Comment on above: Order Comment: Speci men Type: VENOUS BLOOD SPECIMENOrdering Facility: [facility] Address: [address] [address] Performed By: #### 2 4344-4 ####[facility]ORATORYCLIA [id number] [address] Oxygen adjusted to patient's actual temperature (BldV) [Partial pressure] 35.1 mmHg Normal 35-45 [facility] Comment on above: Order Comment: Speci men Type: VENOUS BLOOD SPECIMENOrdering Facility: [facility] Address: [address] [address] Performed By: #### 2 4344-4 ####[facility]ATORYCLIA [id number] [address] [place] Oxygen saturation in Blood 67.1 % Normal 60-85 [facility] Comment on above: Order Comment: Speci men Type: VENOUS BLOOD SPECIMENOrdering Facility: [facility] Address: [address] [place] [address] Performed By: #### 2 4344-4 ####[facility] LABORATORYCLIA [id number] [address] [place] Oxyhemoglobin (BldV) [Mass fraction] 66 % Normal 60-85 [facility] Comment on above: Order Comment: Speci men Type: VENOUS BLOOD SPECIMENOrdering Facility: [facility] Address: [address] [place] [address] Performed By: #### 2 4344-4 ####[facility] LABORATORYCLIA [id number] [address] [place] pH (BldV) 7.42 [pH] Normal 7.32-7.42 [facility] Comment on above: Order Comment: Speci men Type: VENOUS BLOOD SPECIMENOrdering Facility: [facility] Address: [address] [place] [address] Performed By: #### 2 4344-4 ####[facility] LABORATORYCLIA [id number] [address] pH adjusted to patient's actual temperature (BldV) 7.43 High 7.32-7.42 [facility] Comment on above: Order Comment: Speci men Type: VENOUS BLOOD SPECIMENOrdering Facility: [facility] Address: [address] [place] [address] Performed By: #### 2 4344-4 ####[facility] LABORATORYCLIA [id number] [address] [place] Potassium [Moles/Vol] 4.0 mmol/L Normal 3.5-5.0 [facility] Comment on above: Order Comment: Speci men Type: VENOUS BLOOD SPECIMENOrdering Facility: [facility] Address: [address] [place] [address] Performed By: #### 2 4344-4 ####[facility] LABORATORYCLIA [id number] [address] [place] Sodium [Moles/Vol] 146 mmol/L High 136-144 [facility] Comment on above: Order Comment: Speci men Type: VENOUS BLOOD SPECIMENOrdering Facility: [facility] Address: [address] [place] [address] Performed By: #### 2 4344-4 ####[facility] LABORATORYCLIA [id number] [address] [place] HEMOGLOBIN (HGB)on Hemoglobin (Bld) [Mass/Vol] 9.2 g/dL Low 13.0-17.0 [facility] Comment on above: Order Comment: Speci men Type: BLOOD SPECIMENOrdering Facility: [facility] Address: [address] [place] [address] Performed By: #### H GB ####[facility] LABORATORYCLIA [id number] [address] [place] IRON + TIBCon 06-18-2021 Iron [Mass/Vol] 27 ug/dL Low 41-186 [facility] Comment on above: Order Comment: Speci men Type: BLOOD SPECIMENOrdering Facility: [facility] Address: [address] [place] [address] Performed By: #### S ERFOL, IRON, FERR ####[facility] LABORATORYCLIA [id number] [address] [place] Iron binding capacity [Mass/Vol] 141 ug/dL Low 232-386 [facility] Comment on above: Order Comment: Speci men Type: BLOOD SPECIMENOrdering Facility: [facility] Address: [address] [place] [address] Performed By: #### S ERFOL, IRON, FERR ####[facility] LABORATORYCLIA [id number] [address] [place] Iron saturation [Mass fraction] 19 % Normal 15-57 [facility] Comment on above: Order Comment: Speci men Type: BLOOD SPECIMENOrdering Facility: [facility] Address: [address] [place] [address] Performed By: #### S ERFOL, IRON, FERR ####[facility] LABORATORYCLIA [id number] [address] STATES OF [facility] Magnesium SerPl-mCncon 06-18 Magnesium [Mass/Vol] 2.5 mg/dL High 1.7-2.3 [facility] Comment on above: Order Comment: Speci men Type: BLOOD SPECIMENOrdering Facility: [facility] Address: [address] [place] [address] Performed By: #### 2 4321-2, 44872-6, 2777- ####[facility] LABORATORYCLIA [id number] [address] STATES OF [facility] NURSING PROGon 06-18-2021 NURSING PROG Normal [facility] Phosphate SerPl-mCncon 06-18 Phosphate [Mass/Vol] 3.0 mg/dL Normal 2.7-4.8 [facility] Comment on above: Order Comment: Speci men Type: BLOOD SPECIMENOrdering Facility: [facility] Address: [address] [place] [address] Performed By: #### 2 4321-2, , 277- ####[facility] LABORATORYCLIA [id number] [address] [place] THERAPY NTon 06-18-2021 THERAPY NT Normal [facility] aPTT PPPon 06-18-2021 aPTT Coag (PPP) [Time] 43.0 s High 23.0-32.4 [facility] Comment on above: Order Comment: Speci men Type: BLOOD SPECIMENOrdering Facility: [facility] Address: [address] [place] [address] Performed By: #### 1 4979-9 ####[facility] LABORATORYCLIA [id number] [address] [place] aPTT Coag (PPP) [Time] 60.6 s High 23.0-32.4 [facility] Comment on above: Order Comment: Speci men Type: BLOOD SPECIMENOrdering Facility: [facility] Address: [address] [place] [address] Performed By: #### 1 4979-9 ####[facility] LABORATORYCLIA [id number] [address] aPTT Coag (PPP) [Time] 46.4 s High 23.0-32.4 [facility] Comment on above: Order Comment: Speci men Type: BLOOD SPECIMENOrdering Facility: [facility] Address: [address] [place] [address] Performed By: #### 1 4979-9 ####[facility] LABORATORYCLIA [id number] [address] [place] Basic metabolic 2000 panelon 06-17-2021 Anion gap [Moles/Vol] 7 mmol/L Low 9-18 [facility] Comment on above: Order Comment: Speci men Type: BLOOD SPECIMENOrdering Facility: [facility] Address: [address] [place] [address] Performed By: #### 2 951-2, 99360-3, 2777-, 28379-1 ####[facility]ITALCLIA [id number] [place] [address] [place] Calcium [Mass/Vol] 8.1 mg/dL Low 8.5-10.2 [facility] Comment on above: Order Comment: Speci men Type: BLOOD SPECIMENOrdering Facility: [facility] Address: [address] [place] [address] Performed By: #### 2 951-2, 38989-9, 2777-1, 96301-9 ####[facility] LABORATORYCLIA [id number] [address] [place] Chloride [Moles/Vol] 113 mmol/L High 97-105 [facility] Comment on above: Order Comment: Speci men Type: BLOOD SPECIMENOrdering Facility: [facility] Address: [address] [place], [place] [address] Performed By: #### 2 951-2, 94747-9, 277-, 59028-0 ####[facility] LABORATORYCLIA [id number] [place] [address] [place] CO2 [Moles/Vol] 25 mmol/L Normal 22-30 [facility] Comment on above: Order Comment: Speci men Type: BLOOD SPECIMENOrdering Facility: [facility] Address: [address] [place], [place] [address] Performed By: #### 2 951-2, , 2776-05, 85793-2 ####[facility] LABORATORYCLIA [id number] [address] [place] Creatinine [Mass/Vol] 0.70 mg/dL Low 0.73-1.22 [facility] Comment on above: Order Comment: Speci men Type: BLOOD SPECIMENOrdering Facility: [facility] Address: [address] [place] [address] Performed By: #### 2 951-2, 68372-6, 27711-04, 47470-3 ####[facility] LABORATORYCLIA [id number] [address] [place] GFR/1.73 sq M.predicted MDRD (S/P/Bld) [Vol rate/Area] mL/min/{1.73_m2} Normal [facility] Comment on above: Order Comment: [facility] Type: BLOOD SPECIMENOrdering Facility: [facility] Address: [address] [place] [address] Result Comment: >60e GFR (Estimated GFR) Units [...] Performed By: #### 2 951-2, , 2776-05, 60519-9 ####[facility] LABORATORYCLIA [id number] [place] [address] [place] Glucose [Mass/Vol] 122 mg/dL High 74-99 [facility] Comment on above: Order Comment: Shira feldman Type: BLOOD SPECIMENOrdering Facility: [facility] Address: [address] [place] [address] Result Comment: The [place] Diabetes Association (ADA) provides guidance for cutoff [...] Standards of Medical Care in Diabetes 2016, [place] Diabetes Association. Diabetes Care. 2016.39(Suppl 1). Performed By: #### 2 951-2, , 2776-05, ####[facility] LABORATORYCLIA [id number] [place] [address] [place] Potassium [Moles/Vol] 3.5 mmol/L Low 3.7-5.1 [facility] Comment on above: Order Comment: Shira feldman Type: BLOOD SPECIMENOrdering Facility: [facility] Address: [address] [place] [address] Performed By: #### 2 951-2, , 2776-05, 71359-9 ####[facility]ORATORYCLIA [id number] [place] [address] [place] Urea nitrogen [Mass/Vol] 27 mg/dL High 9-24 [facility] Comment on above: Order Comment: Speci men Type: BLOOD SPECIMENOrdering Facility: [facility] Address: [address] [place] [address] Performed By: #### 2 951-2, 60613-4, 2777-1, 91764-4 ####[facility]ORATORYCLIA [id number] [address] [place] CASE MANAGEMon 06-17-2021 CASE MANAGEM Normal [facility] CBC panel Auto (Bld)on 06-17 Erythrocyte distribution width (RBC) [Ratio] 15.9 % High 11.5-15.0 [facility] Comment on above: Order Comment: Speci men Type: BLOOD SPECIMENOrdering Facility: [facility] Address: [address] [place] [address] Performed By: #### 5 8410-2 ####[facility] LABORATORYCLIA [id number] [address] [place] Hematocrit (Bld) [Volume fraction] 28.9 % Low 39.0-51.0 [facility] Comment on above: Order Comment: Speci men Type: BLOOD SPECIMENOrdering Facility: [facility] Address: [address] [place] [address] Performed By: #### 5 8410-2 ####[facility] LABORATORYCLIA [id number] [address] [place] Hemoglobin (Bld) [Mass/Vol] 8.8 g/dL Low 13.0-17.0 [facility] Comment on above: Order Comment: Speci men Type: BLOOD SPECIMENOrdering Facility: [facility] Address: [address] [place] [address] Performed By: #### 5 8410-2 ####[facility] LABORATORYCLIA [id number] [address] [place] MCH (RBC) [Entitic mass] 28.4 pg Normal 26.0-34.0 [facility] Comment on above: Order Comment: Speci men Type: BLOOD SPECIMENOrdering Facility: [facility] Address: [address] [place] [address] Performed By: #### 5 8410-2 ####[facility] LABORATORYCLIA [id number] [address] MCHC (RBC) [Mass/Vol] 30.4 g/dL Low 30.5-36.0 [facility] Comment on above: Order Comment: Speci men Type: BLOOD SPECIMENOrdering Facility: [facility] Address: [address] [place] [address] Performed By: #### 5 8410-2 ####[facility] LABORATORYCLIA [id number] [address] MCV (RBC) [Entitic vol] 93.2 fL Normal 80.0-100.0 [facility] Comment on above: Order Comment: Speci men Type: BLOOD SPECIMENOrdering Facility: [facility] Address: [address] [place] [address] Performed By: #### 5 8410-2 ####[facility] LABORATORYCLIA [id number] [address] Nucleated RBC (Bld) [#/Vol] 10*3/uL Normal <0.01 [facility] Comment on above: Order Comment: Speci men Type: BLOOD SPECIMENOrdering Facility: [facility] Address: [address] [place] [address] Performed By: #### 5 8410-2 ####[facility] LABORATORYCLIA [id number] [address] Platelet mean volume (Bld) [Entitic vol] 11.9 fL Normal 9.0-12.7 [facility] Comment on above: Order Comment: Speci men Type: BLOOD SPECIMENOrdering Facility: [facility] Address: [address] [place] [address] Performed By: #### 5 8410-2 ####[facility] LABORATORYCLIA [id number] [place] Platelets (Bld) [#/Vol] 257 10*3/uL Normal 150-400 [facility] Comment on above: Order Comment: Speci men Type: BLOOD SPECIMENOrdering Facility: [facility] Address: [address] [place] [address] Performed By: #### 5 8410-2 ####[facility]ORATORYCLIA [id number] [place] [address] [place] RBC (Bld) [#/Vol] 3.10 10*6/uL Low 4.20-6.00 [facility] Comment on above: Order Comment: Speci men Type: BLOOD SPECIMENOrdering Facility: [facility] Address: [address] [place] [address] Performed By: #### 5 8410-2 ####[facility] LABORATORYCLIA [id number] [address] OF [facility] WBC (Bld) [#/Vol] 10.54 10*3/uL Normal 3.70-11.00 [facility] Comment on above: Order Comment: Speci men Type: BLOOD SPECIMENOrdering Facility: [facility] Address: [address] [place] [address] Performed By: #### 5 8410-2 ####[facility] LABORATORYCLIA [id number] [address] [place] HEMOGLOBIN (HGB)on 2 Hemoglobin (Bld) [Mass/Vol] 8.8 g/dL Low 13.0-17.0 [facility] Comment on above: Order Comment: Speci men Type: BLOOD SPECIMENOrdering Facility: [facility] Address: [address] [place] [address] Performed By: #### H GB ####[facility] LABORATORYCLIA [id number] [address] [place] Magnesium SerPl-mCncon 06-17 Magnesium [Mass/Vol] 2.5 mg/dL High 1.7-2.3 [facility] Comment on above: Order Comment: Speci men Type: BLOOD SPECIMENOrdering Facility: [facility] Address: [address] [place] [address] Performed By: #### 2 951-2, , 2776-05, ####[facility]ORATORYCLIA [id number] [place] [address] [place] NURSING PROGon 06-17-2021 NURSING PROG Normal [facility] NURSING PROG Normal [facility] NURSING PROG Normal [facility] Phosphate SerPl-mCncon 06-17 Phosphate [Mass/Vol] 1.9 mg/dL Low 2.7-4.8 [facility] Comment on above: Order Comment: Speci men Type: BLOOD SPECIMENOrdering Facility: [facility] Address: [address] [place] [address] Performed By: #### 2 951-2, , 2776-05, ####[facility]ORATORYCLIA [id number] [place] [address] [place] Sodium SerPl-sCncon 06-17-19 22 Sodium [Moles/Vol] 144 mmol/L Normal 136-144 [facility] Comment on above: Order Comment: Speci men Type: BLOOD SPECIMENOrdering Facility: [facility] Address: [address] [place] [address] Performed By: #### 2 95-2 ####[facility] LABORATORYCLIA [id number] [place] [address] [place] Sodium [Moles/Vol] 145 mmol/L High 136-144 [facility] Comment on above: Order Comment: Speci men Type: BLOOD SPECIMENOrdering Facility: [facility] Address: [address] [place] [address] Performed By: #### 2 951-2, , 2776-05, 83333-9 ####[facility]ORATORYCLIA [id number] [place] [address] [place] aPTT PPPon 06-17-2021 aPTT Coag (PPP) [Time] 55.8 s High 23.0-32.4 [facility] Comment on above: Order Comment: Speci men Type: BLOOD SPECIMENOrdering Facility: [facility] Address: [address] [place] [address] Performed By: #### 1 4979-9 ####[facility] LABORATORYCLIA [id number] [address] ARTERIAL BLOOD GASESon 06-16 Base excess Calc (Bld) [Moles/Vol] 3 mmol/L High 0-2 [facility] Comment on above: Order Comment: Speci men Type: ARTERIAL BLOOD SPECIMENOrdering Facility: [facility] Address: [address] [place] [address] Performed By: #### A LLBG ####[facility] LABORATORYCLIA [id number] [address] Body temperature 99.14 [degF] Normal [facility] Comment on above: Order Comment: Speci men Type: ARTERIAL BLOOD SPECIMENOrdering Facility: [facility] Address: [address] [place] [address] Performed By: #### A LLBG ####[facility] LABORATORYCLIA [id number] [address] [place] CALCIUM IONIZED, PH CORRECTED 1.21 mmol/L Normal 1.08-1.30 [facility] Comment on above: Order Comment: Speci men Type: ARTERIAL BLOOD SPECIMENOrdering Facility: [facility] Address: [address] [place] [address] Performed By: #### A LLBG ####[facility]ORATORYCLIA [id number] [address] STATES [facility] Calcium.ionized (BldV) [Mass/Vol] 1.17 mmol/L Normal 1.08-1.30 [facility] Comment on above: Order Comment: Speci men Type: ARTERIAL BLOOD SPECIMENOrdering Facility: [facility] Address: [address] [address] Performed By: #### A LLBG ####[facility]ORATORYCLIA [id number] [address] Carboxyhemoglobin (BldA) [Mass fraction] 1.4 % Normal 0.0-2.0 [facility] Comment on above: Order Comment: Speci men Type: ARTERIAL BLOOD SPECIMENOrdering Facility: [facility] Address: [address] [address] Result Comment: Carb oxyhemoglobin Reference Range for Smokers: 2.0-8.0% Performed By: #### A LLBG ####[facility] LABORATORYCLIA [id number] [address] CO2 (Bld) [Partial pressure] 38 mm Hg Normal 36-46 [facility] Comment on above: Order Comment: Speci men Type: ARTERIAL BLOOD SPECIMENOrdering Facility: [facility] Address: [address] [place] [address] Performed By: #### A LLBG ####[facility] LABORATORYCLIA [id number] [address] [place] CO2 [Moles/Vol] 24.5 mmol/L Normal 22-28 [facility] Comment on above: Order Comment: Speci men Type: ARTERIAL BLOOD SPECIMENOrdering Facility: [facility] Address: [address] [place] [address] Performed By: #### A LLBG ####[facility] LABORATORYCLIA [id number] [address] [place] CO2 adjusted to patient's actual temperature (Bld) [Partial pressure] 38 mmHg Normal 36-46 [facility] Comment on above: Order Comment: Speci men Type: ARTERIAL BLOOD SPECIMENOrdering Facility: [facility] Address: [address] [address] Performed By: #### A LLBG ####[facility] LABORATORYCLIA [id number] [address] [place] Glucose [Mass/Vol] 147 mg/dL High 60-105 [facility] Comment on above: Order Comment: Speci men Type: ARTERIAL BLOOD SPECIMENOrdering Facility: [facility] Address: [address] [place] [address] Performed By: #### A LLBG ####[facility] LABORATORYCLIA [id number] [address] [place] HCO3 (Bld) [Moles/Vol] 27 mmol/L High 22-26 [facility] Comment on above: Order Comment: Speci men Type: ARTERIAL BLOOD SPECIMENOrdering Facility: [facility] Address: [address] [place] [address] Performed By: #### A LLBG ####[facility] LABORATORYCLIA [id number] [address] [place] Hematocrit (Bld) [Volume fraction] 31.8 % Low 39.0-51.0 [facility] Comment on above: Order Comment: Speci men Type: ARTERIAL BLOOD SPECIMENOrdering Facility: [facility] Address: [address] [place] [address] Performed By: #### A LLBG ####[facility] LABORATORYCLIA [id number] [address] [place] Hemoglobin (Bld) [Mass/Vol] 10.3 g/dL Low 13.0-17.0 [facility] Comment on above: Order Comment: Speci men Type: ARTERIAL BLOOD SPECIMENOrdering Facility: [facility] Address: [address] [place] [address] Performed By: #### A LLBG ####[facility] LABORATORYCLIA [id number] [address] [place] Methemoglobin (Bld) [Mass fraction] 1.0 % Normal 0.0-1.5 [facility] Comment on above: Order Comment: Speci men Type: ARTERIAL BLOOD SPECIMENOrdering Facility: [facility] Address: [address] [place] [address] Performed By: #### A LLBG ####[facility]ATORYCLIA [id number] [address] [place] O2 THERAPY Ventilator Normal [facility] Comment on above: Order Comment: Speci men Type: ARTERIAL BLOOD SPECIMENOrdering Facility: [facility] Address: [address] [address] Performed By: #### A LLBG ####[facility] LABORATORYCLIA [id number] [address] [place] Oxygen (Bld) [Partial pressure] 78 mm Hg Low 85-95 [facility] Comment on above: Order Comment: Speci men Type: ARTERIAL BLOOD SPECIMENOrdering Facility: [facility] Address: [facility] [address] Performed By: #### A LLBG ####[facility] LABORATORYCLIA [id number] [address] [place] Oxygen adjusted to patient's actual temperature (Bld) [Partial pressure] 79.7 mmHg Low 85-95 [facility] Comment on above: Order Comment: Speci men Type: ARTERIAL BLOOD SPECIMENOrdering Facility: [facility] Address: [address] [place] [address] Performed By: #### A LLBG ####[facility] LABORATORYCLIA [id number] [address] [place] OXYGEN SATURATION, ARTERIAL 96 % Normal 95-98 [facility] Comment on above: Order Comment: Speci men Type: ARTERIAL BLOOD SPECIMENOrdering Facility: [facility] Address: [address] [address] Performed By: #### A LLBG ####[facility] LABORATORYCLIA [id number] [address] [place] Oxyhemoglobin (BldA) [Mass fraction] 94 % Low 95-98 [facility] Comment on above: Order Comment: Speci men Type: ARTERIAL BLOOD SPECIMENOrdering Facility: [facility] Address: [address] [address] Performed By: #### A LLBG ####[facility]ORATORYCLIA [id number] [address] STATES OF [facility] pH (Bld) 7.47 [pH] High 7.35-7.45 [facility] Comment on above: Order Comment: Speci men Type: ARTERIAL BLOOD SPECIMENOrdering Facility: [facility] Address: [address] [place] [address] Performed By: #### A LLBG ####[facility] LABORATORYCLIA [id number] [address] pH adjusted to patient's actual temperature (Bld) 7.46 High 7.35-7.45 [facility] Comment on above: Order Comment: Speci men Type: ARTERIAL BLOOD SPECIMENOrdering Facility: [facility] Address: [address] [place] [address] Performed By: #### A LLBG ####[facility] LABORATORYCLIA [id number] [address] Potassium [Moles/Vol] 3.7 mmol/L Normal 3.5-5.0 [facility] Comment on above: Order Comment: Speci men Type: ARTERIAL BLOOD SPECIMENOrdering Facility: [facility] Address: [address] [place] [address] Performed By: #### A LLBG ####[facility] LABORATORYCLIA [id number] [address] STATES [facility] Sodium [Moles/Vol] 155 mmol/L High 136-144 [facility] Comment on above: Order Comment: Speci men Type: ARTERIAL BLOOD SPECIMENOrdering Facility: [facility] Address: [address] [place] [address] Performed By: #### A LLBG ####[facility] LABORATORYCLIA [id number] [address] Bacteria Spec Resp Culton Bacteria identified Respiratory culture Nom (Unsp spec) CULTURE, RESPIRATORY: Rare Normal respiratory chris present ORGANISM ID: 1 Few Yeast, not cryptococcus neoformans GRAM STAIN: No organisms seen Few Polymorphonuclear leukocytes Few Epithelial cells Abnormal [facility] Comment on above: Performed By: #### 3 2355-0 ####[facility]ORATORYCLIA [id number] [place] [address] [place] Basic metabolic 2000 panelon 06-16-2021 Anion gap [Moles/Vol] 9 mmol/L Normal 9-18 [facility] Comment on above: Order Comment: Speci men Type: BLOOD SPECIMENOrdering Facility: [facility] Address: [address] [place] [address] Performed By: #### 2 4321-2 ####[facility] LABORATORYCLIA [id number] [place] [address] [place] Calcium [Mass/Vol] 8.4 mg/dL Low 8.5-10.2 [facility] Comment on above: Order Comment: Speci men Type: BLOOD SPECIMENOrdering Facility: [facility] Address: [address] [place] [address] Performed By: #### 2 4321-2 ####[facility] LABORATORYCLIA [id number] [place] [address] [place] Chloride [Moles/Vol] 120 mmol/L High 97-105 [facility] Comment on above: Order Comment: Speci men Type: BLOOD SPECIMENOrdering Facility: [facility] Address: [address] [place] [address] Performed By: #### 2 4321-2 ####[facility]ATORYCLIA [id number] [place] [address] [place] CO2 [Moles/Vol] 27 mmol/L Normal 22-30 [facility] Comment on above: Order Comment: Speci men Type: BLOOD SPECIMENOrdering Facility: [facility] Address: [address] [place] [address] Performed By: #### 2 4321-2 ####[facility] LABORATORYCLIA [id number] [place] [address] [place] Creatinine [Mass/Vol] 0.75 mg/dL Normal 0.73-1.22 [facility] Comment on above: Order Comment: Johncara feldman Type: BLOOD SPECIMENOrdering Facility: [facility] Address: [address] [id number] Performed By: #### 2 4321-2 ####[facility] LABORATORYCLIA [id number] [place] [address] [place] GFR/1.73 sq M.predicted MDRD (S/P/Bld) [Vol rate/Area] mL/min/{1.73_m2} Normal [facility] Comment on above: Order Comment: Johncara feldman Type: BLOOD SPECIMENOrdering Facility: [facility] Address: [address] [id number] Result Comment: >60e GFR (Estimated GFR) Units [...] By: #### 2 4321-2 ####[facility] LABORATORYCLIA [id number] [place] [address] [place] Glucose [Mass/Vol] 160 mg/dL High 74-99 [facility] Comment on above: Order Comment: Shira feldman Type: BLOOD SPECIMENOrdering Facility: [facility] Address: [address] [place] [address] Result Comment: The [place] Diabetes Association (ADA) provides guidance for cutoff [...] Standards of Medical Care in Diabetes 2016, [place] Diabetes Association. Diabetes Care. 2016.39(Suppl 1). Performed By: #### 2 4321-2 ####[facility] LABORATORYCLIA [id number] [address] STATES OF [facility] Potassium [Moles/Vol] 3.1 mmol/L Low 3.7-5.1 [facility] Comment on above: Order Comment: Speci men Type: BLOOD SPECIMENOrdering Facility: [facility] Address: [address] [place] [address] Performed By: #### 2 4321-2 ####[facility] LABORATORYCLIA [id number] [address] Sodium [Moles/Vol] 156 mmol/L High 136-144 [facility] Comment on above: Order Comment: Speci men Type: BLOOD SPECIMENOrdering Facility: [facility] Address: [address] [place] [address] Performed By: #### 2 1-2 ####[facility] LABORATORYCLIA [id number] [address] [place] [facility] Urea nitrogen [Mass/Vol] 33 mg/dL High 9-24 [facility] Comment on above: Order Comment: Speci men Type: BLOOD SPECIMENOrdering Facility: [facility] Address: [address] [place] [address] Performed By: #### 2 1-2 ####[facility] LABORATORYCLIA [id number] [address] [place] CASE MANAGEMon 06-16-2021 CASE MANAGEM Normal [facility] CBC panel Auto (Bld)on 06-16 Erythrocyte distribution width (RBC) [Ratio] 15.9 % High 11.5-15.0 [facility] Comment on above: Order Comment: Speci men Type: BLOOD SPECIMENOrdering Facility: [facility] Address: [address] [address] Performed By: #### 5 8410-2 ####[facility] LABORATORYCLIA [id number] [address] Hematocrit (Bld) [Volume fraction] 34.6 % Low 39.0-51.0 [facility] Comment on above: Order Comment: Speci men Type: BLOOD SPECIMENOrdering Facility: [facility] Address: [address] [place] [address] Performed By: #### 5 8410-2 ####[facility] LABORATORYCLIA [id number] [address] Hemoglobin (Bld) [Mass/Vol] 10.2 g/dL Low 13.0-17.0 [facility] Comment on above: Order Comment: Speci men Type: BLOOD SPECIMENOrdering Facility: [facility] Address: [address] [place] [address] Performed By: #### 5 8410-2 ####[facility] LABORATORYCLIA [id number] [address] MCH (RBC) [Entitic mass] 28.5 pg Normal 26.0-34.0 [facility] Comment on above: Order Comment: Speci men Type: BLOOD SPECIMENOrdering Facility: [facility] Address: [address] [place] [address] Performed By: #### 5 8410-2 ####[facility] LABORATORYCLIA [id number] [address] [place] MCHC (RBC) [Mass/Vol] 29.5 g/dL Low 30.5-36.0 [facility] Comment on above: Order Comment: Speci men Type: BLOOD SPECIMENOrdering Facility: [facility] Address: [address] [place] [address] Performed By: #### 5 8410-2 ####[facility] LABORATORYCLIA [id number] [address] [place] MCV (RBC) [Entitic vol] 96.6 fL Normal 80.0-100.0 [facility] Comment on above: Order Comment: Speci men Type: BLOOD SPECIMENOrdering Facility: [facility] Address: [address] [place] [address] Performed By: #### 5 8410-2 ####[facility] LABORATORYCLIA [id number] [address] Nucleated RBC (Bld) [#/Vol] 10*3/uL Normal <0.01 [facility] Comment on above: Order Comment: Speci men Type: BLOOD SPECIMENOrdering Facility: [facility] Address: [address] [place] [address] Performed By: #### 5 8410-2 ####[facility] LABORATORYCLIA [id number] [address] [place] Platelet mean volume (Bld) [Entitic vol] 11.9 fL Normal 9.0-12.7 [facility] Comment on above: Order Comment: Speci men Type: BLOOD SPECIMENOrdering Facility: [facility] Address: [address] [place] [address] Performed By: #### 5 8410-2 ####[facility] LABORATORYCLIA [id number] [address] [place] [facility] Platelets (Bld) [#/Vol] 269 10*3/uL Normal 150-400 [facility] Comment on above: Order Comment: Speci men Type: BLOOD SPECIMENOrdering Facility: [facility] Address: [address] [place], [place] [address] Performed By: #### 5 8410-2 ####[facility] LABORATORYCLIA [id number] [address] [place] RBC (Bld) [#/Vol] 3.58 10*6/uL Low 4.20-6.00 [facility] Comment on above: Order Comment: Speci men Type: BLOOD SPECIMENOrdering Facility: [facility] Address: [address] [place] [address] Performed By: #### 5 8410-2 ####[facility] LABORATORYCLIA [id number] [place] [address] [place] WBC (Bld) [#/Vol] 13.11 10*3/uL High 3.70-11.00 [facility] Comment on above: Order Comment: Speci men Type: BLOOD SPECIMENOrdering Facility: [facility] Address: [address] [place] [address] Performed By: #### 5 8410-2 ####[facility] LABORATORYCLIA [id number] [place] [address] [place] CONSULTon 06-16-2021 CONSULT Normal [facility] [...] Comment: Speci men Type: BLOOD SPECIMENOrdering Facility: [facility] Address: [address] [place] [address] Performed By: #### H GB ####[facility] LABORATORYCLIA [id number] [address] [place] Hemoglobin (Bld) [Mass/Vol] 9.6 g/dL Low 13.0-17.0 [facility] Comment on above: Order Comment: Speci men Type: BLOOD SPECIMENOrdering Facility: [facility] Address: [address] [address] Performed By: #### H GB ####[facility] LABORATORYCLIA [id number] [place] [address] [place] Magnesium SerPl-mCncon 06-16 Magnesium [Mass/Vol] 2.7 mg/dL High 1.7-2.3 [facility] Comment on above: Order Comment: Speci men Type: BLOOD SPECIMENOrdering Facility: [facility] Address: [address] [place], [place] [address] Performed By: #### 1 9123-9 ####[facility] LABORATORYCLIA [id number] [place] [address] [place] NURSING PROGon 06-16-2021 NURSING PROG Normal [facility] NUTRITIONon 06-16-2021 NUTRITION Normal [facility] Phosphate SerPl-mCncon 06-16 Phosphate [Mass/Vol] 1.4 mg/dL Low 2.7-4.8 [facility] Comment on above: Order Comment: Speci men Type: BLOOD SPECIMENOrdering Facility: [facility] Address: [address] [place] [address] Performed By: #### 2 777-1 ####[facility] LABORATORYCLIA [id number] [address] [place] STAPH AUREUS PCRon S. aureus and MRSA panel MEGAN+probe (Nose) Normal Negative [facility] Comment on above: Order Comment: Speci men Type: SWAB OF INTERNAL NOSEOrdering Facility: [facility] Address: [address] [place] [address] Result Comment: Nega tive for Staphylococcus aureus by PCR.Negative for MRSA by PCR Performed By: #### S APCR ####[facility] LABORATORYCLIA [id number] [place] [address] [place] Sodium SerPl-sCncon 06-16-19 22 Sodium [Moles/Vol] 150 mmol/L High 136-144 [facility] Comment on above: Order Comment: Speci men Type: BLOOD SPECIMENOrdering Facility: [facility] Address: [address] [address] Performed By: #### 2 951-2 ####[facility] LABORATORYCLIA [id number] [place] [address] [place] Sodium [Moles/Vol] 153 mmol/L High 136-144 [facility] Comment on above: Order Comment: Speci men Type: BLOOD SPECIMENOrdering Facility: [facility] Address: [address] [place] [address] Performed By: #### 2 951-2 ####[facility] LABORATORYCLIA [id number] [address] [place] [facility] Sodium [Moles/Vol] 158 mmol/L High 136-144 [facility] Comment on above: Order Comment: Speci men Type: BLOOD SPECIMENOrdering Facility: [facility] Address: [address] [place] [address] Performed By: #### 2 951-2 ####[facility] LABORATORYCLIA [id number] [address] [place] aPTT PPPon 06-16-2021 aPTT Coag (PPP) [Time] 61.8 s High 23.0-32.4 [facility] Comment on above: Order Comment: Speci men Type: BLOOD SPECIMENOrdering Facility: [facility] Address: [address] [place] [address] Performed By: #### 1 4979-9 ####[facility] LABORATORYCLIA [id number] [address] [place] aPTT Coag (PPP) [Time] 57.6 s High 23.0-32.4 [facility] Comment on above: Order Comment: Speci men Type: BLOOD SPECIMENOrdering Facility: [facility] Address: [address] [place] [address] Performed By: #### 1 4979-9 ####[facility]ORATORYCLIA [id number] [place] [address] [place] ALLIED HEALTHon 06-15-2021 [...] Speci men Type: ARTERIAL BLOOD SPECIMENOrdering Facility: [facility] Address: [address] [place] [address] Performed By: #### A LLBG ####[facility] LABORATORYCLIA [id number] [address] Body temperature 99.5 [degF] Normal [facility] Comment on above: Order Comment: Speci men Type: ARTERIAL BLOOD SPECIMENOrdering Facility: [facility] Address: [address] [place] [address] Performed By: #### A LLBG ####[facility] LABORATORYCLIA [id number] [address] [place] CALCIUM IONIZED, PH CORRECTED 1.34 mmol/L High 1.08-1.30 [facility] Comment on above: Order Comment: Speci men Type: ARTERIAL BLOOD SPECIMENOrdering Facility: [facility] Address: [address] [place] [address] Performed By: #### A LLBG ####[facility] LABORATORYCLIA [id number] [address] Calcium.ionized (BldV) [Mass/Vol] 1.29 mmol/L Normal 1.08-1.30 [facility] Comment on above: Order Comment: Speci men Type: ARTERIAL BLOOD SPECIMENOrdering Facility: [facility] Address: [address] [place] [address] Performed By: #### A LLBG ####[facility] LABORATORYCLIA [id number] [address] [place] Carboxyhemoglobin (BldA) [Mass fraction] 1.3 % Normal 0.0-2.0 [facility] Comment on above: Order Comment: Speci men Type: ARTERIAL BLOOD SPECIMENOrdering Facility: [facility] Address: [address] [place] [address] Result Comment: Carb oxyhemoglobin Reference Range for Smokers: 2.0-8.0% Performed By: #### A LLBG ####[facility] LABORATORYCLIA [id number] [address] [place] CO2 (Bld) [Partial pressure] 37 mm Hg Normal 36-46 [facility] Comment on above: Order Comment: Speci men Type: ARTERIAL BLOOD SPECIMENOrdering Facility: [facility] Address: [address] [place] [address] Performed By: #### A LLBG ####[facility]ORYCLIA [id number] [address] [place] CO2 [Moles/Vol] 24.6 mmol/L Normal 22-28 [facility] Comment on above: Order Comment: Speci men Type: ARTERIAL BLOOD SPECIMENOrdering Facility: [facility] Address: [address] [place] [address] Performed By: #### A LLBG ####[facility] LABORATORYCLIA [id number] [address] CO2 adjusted to patient's actual temperature (Bld) [Partial pressure] 38 mmHg Normal 36-46 [facility] Comment on above: Order Comment: Speci men Type: ARTERIAL BLOOD SPECIMENOrdering Facility: [facility] Address: [address] [place] [address] Performed By: #### A LLBG ####[facility] LABORATORYCLIA [id number] [address] FIO2 100 % Normal [facility] Comment on above: Order Comment: Speci men Type: ARTERIAL BLOOD SPECIMENOrdering Facility: [facility] Address: [address] [place] [address] Performed By: #### A LLBG ####[facility]ATORYCLIA [id number] [address] [place] Glucose [Mass/Vol] 159 mg/dL High 60-105 [facility] Comment on above: Order Comment: Speci men Type: ARTERIAL BLOOD SPECIMENOrdering Facility: [facility] Address: [address] [place] [address] Performed By: #### A LLBG ####[facility]ORYCLIA [id number] [address] [place] HCO3 (Bld) [Moles/Vol] 27 mmol/L High 22-26 [facility] Comment on above: Order Comment: Speci men Type: ARTERIAL BLOOD SPECIMENOrdering Facility: [facility] Address: [address] [place] [address] Performed By: #### A LLBG ####[facility] LABORATORYCLIA [id number] [address] OF [facility] Hematocrit (Bld) [Volume fraction] 31.0 % Low 39.0-51.0 [facility] Comment on above: Order Comment: Speci men Type: ARTERIAL BLOOD SPECIMENOrdering Facility: [facility] Address: [address] [place] [address] Performed By: #### A LLBG ####[facility] LABORATORYCLIA [id number] [address] Hemoglobin (Bld) [Mass/Vol] 10.0 g/dL Low 13.0-17.0 [facility] Comment on above: Order Comment: Speci men Type: ARTERIAL BLOOD SPECIMENOrdering Facility: [facility] Address: [address] [place] [address] Performed By: #### A LLBG ####[facility] LABORATORYCLIA [id number] [address] Methemoglobin (Bld) [Mass fraction] % Normal 0.0-1.5 [facility] Comment on above: Order Comment: Speci men Type: ARTERIAL BLOOD SPECIMENOrdering Facility: [facility] Address: [address] [place] [address] Performed By: #### A LLBG ####[facility] LABORATORYCLIA [id number] [address] [place] O2 THERAPY Ventilator Normal [facility] Comment on above: Order Comment: Speci men Type: ARTERIAL BLOOD SPECIMENOrdering Facility: [facility] Address: [address] [place] [address] Performed By: #### A LLBG ####[facility] LABORATORYCLIA [id number] [place] [address] [place] Oxygen (Bld) [Partial pressure] 279 mm Hg High 85-95 [facility] Comment on above: Order Comment: Speci men Type: ARTERIAL BLOOD SPECIMENOrdering Facility: [facility] Address: [address] [address] Performed By: #### A LLBG ####[facility] LABORATORYCLIA [id number] [address] [place] Oxygen adjusted to patient's actual temperature (Bld) [Partial pressure] 281 mmHg High 85-95 [facility] Comment on above: Order Comment: Speci men Type: ARTERIAL BLOOD SPECIMENOrdering Facility: [facility] Address: [address] [place] [address] Performed By: #### A LLBG ####[facility] LABORATORYCLIA [id number] [address] [place] OXYGEN SATURATION, ARTERIAL 100 % High 95-98 [facility] Comment on above: Order Comment: Speci men Type: ARTERIAL BLOOD SPECIMENOrdering Facility: [facility] Address: [address] [place] [address] Performed By: #### A LLBG ####[facility] LABORATORYCLIA [id number] [address] [place] Oxyhemoglobin (BldA) [Mass fraction] 98 % Normal 95-98 [facility] Comment on above: Order Comment: Speci men Type: ARTERIAL BLOOD SPECIMENOrdering Facility: [facility] Address: [address] [place] [address] Performed By: #### A LLBG ####[facility] LABORATORYCLIA [id number] [place] [address] [place] pH (Bld) 7.47 [pH] High 7.35-7.45 [facility] Comment on above: Order Comment: Speci men Type: ARTERIAL BLOOD SPECIMENOrdering Facility: [facility] Address: [address] [address] Performed By: #### A LLBG ####[facility]ATORYCLIA [id number] [address] [place] [facility] pH adjusted to patient's actual temperature (Bld) 7.46 High 7.35-7.45 [facility] Comment on above: Order Comment: Speci men Type: ARTERIAL BLOOD SPECIMENOrdering Facility: [facility] Address: [address] [place] [address] Performed By: #### A LLBG ####[facility] LABORATORYCLIA [id number] [address] [place] Potassium [Moles/Vol] 3.6 mmol/L Normal 3.5-5.0 [facility] Comment on above: Order Comment: Speci men Type: ARTERIAL BLOOD SPECIMENOrdering Facility: [facility] Address: [address] [place] [address] Performed By: #### A LLBG ####[facility] LABORATORYCLIA [id number] [address] [place] Sodium [Moles/Vol] 162 mmol/L High 136-144 [facility] Comment on above: Order Comment: Speci men Type: ARTERIAL BLOOD SPECIMENOrdering Facility: [facility] Address: [address] [place] [address] Performed By: #### A LLBG ####[facility] LABORATORYCLIA [id number] [address] [place] Base excess Calc (Bld) [Moles/Vol] 4 mmol/L High 0-2 [facility] Comment on above: Order Comment: Speci men Type: ARTERIAL BLOOD SPECIMENOrdering Facility: [facility] Address: [address] [place] [address] Performed By: #### A LLBG ####[facility] LABORATORYCLIA [id number] [address] [place] Body temperature 100.58 [degF] Normal [facility] Comment on above: Order Comment: Speci men Type: ARTERIAL BLOOD SPECIMENOrdering Facility: [facility] Address: [address] [place] [address] Performed By: #### A LLBG ####[facility] LABORATORYCLIA [id number] [address] [place] [facility] CALCIUM IONIZED, PH CORRECTED 1.34 mmol/L High 1.08-1.30 [facility] Comment on above: Order Comment: Speci men Type: ARTERIAL BLOOD SPECIMENOrdering Facility: [facility] Address: [address] [place] [address] Performed By: #### A LLBG ####[facility] LABORATORYCLIA [id number] [address] [place] Calcium.ionized (BldV) [Mass/Vol] 1.33 mmol/L High 1.08-1.30 [facility] Comment on above: Order Comment: Speci men Type: ARTERIAL BLOOD SPECIMENOrdering Facility: [facility] Address: [address] [place] [address] Performed By: #### A LLBG ####[facility] LABORATORYCLIA [id number] [address] Carboxyhemoglobin (BldA) [Mass fraction] 1.5 % Normal 0.0-2.0 [facility] Comment on above: Order Comment: Speci men Type: ARTERIAL BLOOD SPECIMENOrdering Facility: [facility] Address: [address] [place] [address] Result Comment: Carb oxyhemoglobin Reference Range for Smokers: 2.0-8.0% Performed By: #### A LLBG ####[facility] LABORATORYCLIA [id number] [address] OF [facility] CO2 (Bld) [Partial pressure] 46 mm Hg Normal 36-46 [facility] Comment on above: Order Comment: Speci men Type: ARTERIAL BLOOD SPECIMENOrdering Facility: [facility] Address: [address] [place] [address] Performed By: #### A LLBG ####[facility] LABORATORYCLIA [id number] [address] [place] CO2 [Moles/Vol] 26.4 mmol/L Normal 22-28 [facility] Comment on above: Order Comment: Speci men Type: ARTERIAL BLOOD SPECIMENOrdering Facility: [facility] Address: [address] [place] [address] Performed By: #### A LLBG ####[facility]ORYCLIA [id number] [address] CO2 adjusted to patient's actual temperature (Bld) [Partial pressure] 48 mmHg High 36-46 [facility] Comment on above: Order Comment: Speci men Type: ARTERIAL BLOOD SPECIMENOrdering Facility: [facility] Address: [address] [place] [address] Performed By: #### A LLBG ####[facility] LABORATORYCLIA [id number] [address] FIO2 100 % Normal [facility] Comment on above: Order Comment: Speci men Type: ARTERIAL BLOOD SPECIMENOrdering Facility: [facility] Address: [address] [place] [address] Performed By: #### A LLBG ####[facility] LABORATORYCLIA [id number] [address] [place] Glucose [Mass/Vol] 132 mg/dL High 60-105 [facility] Comment on above: Order Comment: Speci men Type: ARTERIAL BLOOD SPECIMENOrdering Facility: [facility] Address: [address] [place] [address] Performed By: #### A LLBG ####[facility]ORYCLIA [id number] [address] [place] HCO3 (Bld) [Moles/Vol] 29 mmol/L High 22-26 [facility] Comment on above: Order Comment: Speci men Type: ARTERIAL BLOOD SPECIMENOrdering Facility: [facility] Address: [address] [place] [address] Performed By: #### A LLBG ####[facility]ORYCLIA [id number] [address] [place] Hematocrit (Bld) [Volume fraction] 32.3 % Low 39.0-51.0 [facility] Comment on above: Order Comment: Speci men Type: ARTERIAL BLOOD SPECIMENOrdering Facility: [facility] Address: [facility] [address] Performed By: #### A LLBG ####[facility] LABORATORYCLIA [id number] [address] [place] Hemoglobin (Bld) [Mass/Vol] 10.4 g/dL Low 13.0-17.0 [facility] Comment on above: Order Comment: Speci men Type: ARTERIAL BLOOD SPECIMENOrdering Facility: [facility] Address: [address] [place] [address] Performed By: #### A LLBG ####[facility] LABORATORYCLIA [id number] [address] [place] Methemoglobin (Bld) [Mass fraction] % Normal 0.0-1.5 [facility] Comment on above: Order Comment: Speci men Type: ARTERIAL BLOOD SPECIMENOrdering Facility: [facility] Address: [address] [place] [address] Performed By: #### A LLBG ####[facility] LABORATORYCLIA [id number] [address] O2 THERAPY NR=Non-Rebreather Mask Normal [facility] Comment on above: Order Comment: Speci men Type: ARTERIAL BLOOD SPECIMENOrdering Facility: [facility] Address: [address] [address] Performed By: #### A LLBG ####[facility] LABORATORYCLIA [id number] [address] [place] Oxygen (Bld) [Partial pressure] 130 mm Hg High 85-95 [facility] Comment on above: Order Comment: Speci men Type: ARTERIAL BLOOD SPECIMENOrdering Facility: [facility] Address: [address] [address] Performed By: #### A LLBG ####[facility]ORYCLIA [id number] [address] Oxygen adjusted to patient's actual temperature (Bld) [Partial pressure] 136 mmHg High 85-95 [facility] Comment on above: Order Comment: Speci men Type: ARTERIAL BLOOD SPECIMENOrdering Facility: [facility] Address: [address] [place] [address] Performed By: #### A LLBG ####[facility] LABORATORYCLIA [id number] [address] [place] OXYGEN SATURATION, ARTERIAL 99 % High 95-98 [facility] Comment on above: Order Comment: Speci men Type: ARTERIAL BLOOD SPECIMENOrdering Facility: [facility] Address: [address] [place] [address] Performed By: #### A LLBG ####[facility]ORATORYCLIA [id number] [address] Oxyhemoglobin (BldA) [Mass fraction] 97 % Normal 95-98 [facility] Comment on above: Order Comment: Speci men Type: ARTERIAL BLOOD SPECIMENOrdering Facility: [facility] Address: [address] [place] [address] Performed By: #### A LLBG ####[facility] LABORATORYCLIA [id number] [address] [place] pH (Bld) 7.41 [pH] Normal 7.35-7.45 [facility] Comment on above: Order Comment: Speci men Type: ARTERIAL BLOOD SPECIMENOrdering Facility: [facility] Address: [address] [place] [address] Performed By: #### A LLBG ####[facility] LABORATORYCLIA [id number] [address] pH adjusted to patient's actual temperature (Bld) 7.40 Normal 7.35-7.45 [facility] Comment on above: Order Comment: Speci men Type: ARTERIAL BLOOD SPECIMENOrdering Facility: [facility] Address: [address] [place] [address] Performed By: #### A LLBG ####[facility] LABORATORYCLIA [id number] [place] [address] [place] Potassium [Moles/Vol] 3.8 mmol/L Normal 3.5-5.0 [facility] Comment on above: Order Comment: Speci men Type: ARTERIAL BLOOD SPECIMENOrdering Facility: [facility] Address: [address] [place] [address] Performed By: #### A LLBG ####[facility] LABORATORYCLIA [id number] [address] [place] Sodium [Moles/Vol] 166 mmol/L High 136-144 [facility] Comment on above: Order Comment: Speci men Type: ARTERIAL BLOOD SPECIMENOrdering Facility: [facility] Address: [address] [place] [address] Performed By: #### A LLBG ####[facility] LABORATORYCLIA [id number] [address] [place] Bacteria Bld Culton 06-15-19 22 Bacteria identified Cx Nom (Bld) CULTURE, BLOOD: No growth 5 days Normal [facility] Comment on above: Performed By: #### 6 00-7 ####[facility] LABORATORYCLIA [id number] [address] [place] Basic metabolic 2000 panelon 06-15-2021 Anion gap [Moles/Vol] 9 mmol/L Normal 9-18 [facility] Comment on above: Order Comment: Speci men Type: BLOOD SPECIMEN Performed By: #### 2 4321-2, 2776-05, ####[facility]ORATORYCLIA [id number] [place] [address] [place] Calcium [Mass/Vol] 9.0 mg/dL Normal 8.5-10.2 [facility] Comment on above: Order Comment: Speci men Type: BLOOD SPECIMEN Performed By: #### 2 4321-2, 2776-, ####[facility]ATORYCLIA [id number] [place] [address] [place] Chloride [Moles/Vol] 125 mmol/L High 97-105 [facility] Comment on above: Order Comment: Speci men Type: BLOOD SPECIMEN Performed By: #### 2 4321-2, 2776-05, ####[facility] LABORATORYCLIA [id number] [place] [address] [facility] [place] CO2 [Moles/Vol] 29 mmol/L Normal 22-30 [facility] Comment on above: Order Comment: Speci men Type: BLOOD SPECIMEN Performed By: #### 2 4321-2, 2776-05, ####[facility]ORATORYCLIA [id number] [address] Creatinine [Mass/Vol] 0.81 mg/dL Normal 0.73-1.22 [facility] Comment on above: Order Comment: Speci men Type: BLOOD SPECIMEN Performed By: #### 2 4321-2, 2776-05, ####[facility] LABORATORYCLIA [id number] [address] GFR/1.73 sq M.predicted MDRD (S/P/Bld) [Vol [...] GFR. Performed By: #### 2 4321-2, 27711-04, ####[facility]ORATORYCLIA [id number] [address] Glucose [Mass/Vol] 124 mg/dL High 74-99 [facility] Comment on above: Order Comment: Speci men Type: BLOOD SPECIMEN Result Comment: The [place] Diabetes Association (ADA) provides guidance for cutoff [...] Standards of Medical Care in Diabetes 2016, [place] Diabetes Association. Diabetes Care. 2016.39(Suppl 1). Performed By: #### 2 4321-2, 2776-05, ####[facility] LABORATORYCLIA [id number] [address] [place] Potassium [Moles/Vol] 3.8 mmol/L Normal 3.7-5.1 [facility] Comment on above: Order Comment: Speci men Type: BLOOD SPECIMEN Performed By: #### 2 1-2, 2776-05, ####[facility] LABORATORYCLIA [id number] [address] [facility] Sodium [Moles/Vol] 163 mmol/L High 136-144 [facility] Comment on above: Order Comment: Speci men Type: BLOOD SPECIMEN Performed By: #### 2 4321-2, 2776-05, ####[facility]ORATORYCLIA [id number] [address] [place] Urea nitrogen [Mass/Vol] 35 mg/dL High 9-24 [facility] Comment on above: Order Comment: Speci men Type: BLOOD SPECIMEN Performed By: #### 2 4321-2, 2776-05, ####[facility] LABORATORYCLIA [id number] [address] CBC panel Auto (Bld)on 06-15 Erythrocyte distribution width (RBC) [Ratio] 16.3 % High 11.5-15.0 [facility] Comment on above: Order Comment: Speci men Type: BLOOD SPECIMENOrdering Facility: [facility] Address: [address] [place] [address] Performed By: #### 5 8410-2 ####[facility] LABORATORYCLIA [id number] [address] Hematocrit (Bld) [Volume fraction] 30.0 % Low 39.0-51.0 [facility] Comment on above: Order Comment: Speci men Type: BLOOD SPECIMENOrdering Facility: [facility] Address: [address] [place] [address] Performed By: #### 5 8410-2 ####[facility]ORATORYCLIA [id number] [address] Hemoglobin (Bld) [Mass/Vol] 8.9 g/dL Low 13.0-17.0 [facility] Comment on above: Order Comment: Speci men Type: BLOOD SPECIMENOrdering Facility: [facility] Address: [address] [place] [address] Performed By: #### 5 8410-2 ####[facility] LABORATORYCLIA [id number] [address] MCH (RBC) [Entitic mass] 28.7 pg Normal 26.0-34.0 [facility] Comment on above: Order Comment: Speci men Type: BLOOD SPECIMENOrdering Facility: [facility] Address: [address] [place] [address] Performed By: #### 5 8410-2 ####[facility] LABORATORYCLIA [id number] [address] MCHC (RBC) [Mass/Vol] 29.7 g/dL Low 30.5-36.0 [facility] Comment on above: Order Comment: Speci men Type: BLOOD SPECIMENOrdering Facility: [facility] Address: [address] [address] Performed By: #### 5 8410-2 ####[facility] LABORATORYCLIA [id number] [address] MCV (RBC) [Entitic vol] 96.8 fL Normal 80.0-100.0 [facility] Comment on above: Order Comment: Speci men Type: BLOOD SPECIMENOrdering Facility: [facility] Address: [address] [address] Performed By: #### 5 8410-2 ####[facility] LABORATORYCLIA [id number] [address] Nucleated RBC (Bld) [#/Vol] 10*3/uL Normal <0.01 [facility] Comment on above: Order Comment: Speci men Type: BLOOD SPECIMENOrdering Facility: [facility] Address: [address] [place] [address] Performed By: #### 5 8410-2 ####[facility] LABORATORYCLIA [id number] [address] Platelet mean volume (Bld) [Entitic vol] 12.3 fL Normal 9.0-12.7 [facility] Comment on above: Order Comment: Speci men Type: BLOOD SPECIMENOrdering Facility: [facility] Address: [address] [address] Performed By: #### 5 8410-2 ####[facility] LABORATORYCLIA [id number] [address] Platelets (Bld) [#/Vol] 226 10*3/uL Normal 150-400 [facility] Comment on above: Order Comment: Speci men Type: BLOOD SPECIMENOrdering Facility: [facility] Address: [address] [place] [address] Performed By: #### 5 8410-2 ####[facility] LABORATORYCLIA [id number] [address] RBC (Bld) [#/Vol] 3.10 10*6/uL Low 4.20-6.00 [facility] Comment on above: Order Comment: Speci men Type: BLOOD SPECIMENOrdering Facility: [facility] Address: [address] [place] [address] Performed By: #### 5 8410-2 ####[facility] LABORATORYCLIA [id number] [place] [address] [place] WBC (Bld) [#/Vol] 10.77 10*3/uL Normal 3.70-11.00 [facility] Comment on above: Order Comment: Speci men Type: BLOOD SPECIMENOrdering Facility: [facility] Address: [address] [place] [address] Performed By: #### 5 8410-2 ####[facility] LABORATORYCLIA [id number] [address] Erythrocyte distribution width (RBC) [Ratio] 16.2 % High 11.5-15.0 [facility] Comment on above: Order Comment: Speci men Type: BLOOD SPECIMENOrdering Facility: [facility] Address: [address] [place] [address] Performed By: #### 5 8410-2 ####[facility] LABORATORYCLIA [id number] [address] Hematocrit (Bld) [Volume fraction] 34.8 % Low 39.0-51.0 [facility] Comment on above: Order Comment: Speci men Type: BLOOD SPECIMENOrdering Facility: [facility] Address: [address] [place] [address] Performed By: #### 5 8410-2 ####[facility] LABORATORYCLIA [id number] [address] Hemoglobin (Bld) [Mass/Vol] 10.0 g/dL Low 13.0-17.0 [facility] Comment on above: Order Comment: Speci men Type: BLOOD SPECIMENOrdering Facility: [facility] Address: [address] [place] [address] Performed By: #### 5 8410-2 ####[facility] LABORATORYCLIA [id number] [address] MCH (RBC) [Entitic mass] 27.5 pg Normal 26.0-34.0 [facility] Comment on above: Order Comment: Speci men Type: BLOOD SPECIMENOrdering Facility: [facility] Address: [address] [place] [address] Performed By: #### 5 8410-2 ####[facility]ORATORYCLIA [id number] [address] MCHC (RBC) [Mass/Vol] 28.7 g/dL Low 30.5-36.0 [facility] Comment on above: Order Comment: Speci men Type: BLOOD SPECIMENOrdering Facility: [facility] Address: [address] [place] [address] Performed By: #### 5 8410-2 ####[facility] LABORATORYCLIA [id number] [address] [place] [facility] MCV (RBC) [Entitic vol] 95.6 fL Normal 80.0-100.0 [facility] Comment on above: Order Comment: Speci men Type: BLOOD SPECIMENOrdering Facility: [facility] Address: [address] [place] [address] Performed By: #### 5 8410-2 ####[facility] LABORATORYCLIA [id number] [address] Nucleated RBC (Bld) [#/Vol] 10*3/uL Normal <0.01 [facility] Comment on above: Order Comment: Speci men Type: BLOOD SPECIMENOrdering Facility: [facility] Address: [address] [place] [address] Performed By: #### 5 8410-2 ####[facility] LABORATORYCLIA [id number] [address] Platelet mean volume (Bld) [Entitic vol] 11.9 fL Normal 9.0-12.7 [facility] Comment on above: Order Comment: Speci men Type: BLOOD SPECIMENOrdering Facility: [facility] Address: [address] [place] [address] Performed By: #### 5 8410-2 ####[facility] LABORATORYCLIA [id number] [address] [facility] Platelets (Bld) [#/Vol] 246 10*3/uL Normal 150-400 [facility] Comment on above: Order Comment: Speci men Type: BLOOD SPECIMENOrdering Facility: [facility] Address: [address] [place] [address] Performed By: #### 5 8410-2 ####[facility] LABORATORYCLIA [id number] [address] [place] [facility] RBC (Bld) [#/Vol] 3.64 10*6/uL Low 4.20-6.00 [facility] Comment on above: Order Comment: Speci men Type: BLOOD SPECIMENOrdering Facility: [facility] Address: [address] [place] [address] Performed By: #### 5 8410-2 ####[facility] LABORATORYCLIA [id number] [address] [place] [facility] WBC (Bld) [#/Vol] 11.45 10*3/uL High 3.70-11.00 [facility] Comment on above: Order Comment: Speci men Type: BLOOD SPECIMENOrdering Facility: [facility] Address: [address] [place] [address] Performed By: #### 5 8410-2 ####[facility] LABORATORYCLIA [id number] [address] Erythrocyte distribution width (RBC) [Ratio] 15.9 % High 11.5-15.0 [facility] Comment on above: Order Comment: Speci men Type: BLOOD SPECIMEN Performed By: #### 5 8410-2 ####[facility] LABORATORYCLIA [id number] [address] Hematocrit (Bld) [Volume fraction] 35.8 % Low 39.0-51.0 [facility] Comment on above: Order Comment: Speci men Type: BLOOD SPECIMEN Performed By: #### 5 8410-2 ####[facility]ORATORYCLIA [id number] [address] Hemoglobin (Bld) [Mass/Vol] 10.4 g/dL Low 13.0-17.0 [facility] Comment on above: Order Comment: Speci men Type: BLOOD SPECIMEN Performed By: #### 5 8410-2 ####[facility] LABORATORYCLIA [id number] [address] MCH (RBC) [Entitic mass] 28.0 pg Normal 26.0-34.0 [facility] Comment on above: Order Comment: Speci men Type: BLOOD SPECIMEN Performed By: #### 5 8410-2 ####[facility] LABORATORYCLIA [id number] [address] MCHC (RBC) [Mass/Vol] 29.1 g/dL Low 30.5-36.0 [facility] Comment on above: Order Comment: Speci men Type: BLOOD SPECIMEN Performed By: #### 5 8410-2 ####[facility] LABORATORYCLIA [id number] [address] MCV (RBC) [Entitic vol] 96.2 fL Normal 80.0-100.0 [facility] Comment on above: Order Comment: Speci men Type: BLOOD SPECIMEN Performed By: #### 5 8410-2 ####[facility] LABORATORYCLIA [id number] [address] Nucleated RBC (Bld) [#/Vol] 10*3/uL Normal <0.01 [facility] Comment on above: Order Comment: Speci men Type: BLOOD SPECIMEN Performed By: #### 5 8410-2 ####[facility] LABORATORYCLIA [id number] [address] Platelet mean volume (Bld) [Entitic vol] 11.6 fL Normal 9.0-12.7 [facility] Comment on above: Order Comment: Speci men Type: BLOOD SPECIMEN Performed By: #### 5 8410-2 ####[facility] LABORATORYCLIA [id number] [id number] [place] Platelets (Bld) [#/Vol] 265 10*3/uL Normal 150-400 [facility] Comment on above: Order Comment: Speci men Type: BLOOD SPECIMEN Performed By: #### 5 8410-2 ####[facility] LABORATORYCLIA [id number] [address] [place] [facility] RBC (Bld) [#/Vol] 3.72 10*6/uL Low 4.20-6.00 [facility] Comment on above: Order Comment: Speci men Type: BLOOD SPECIMEN Performed By: #### 5 8410-2 ####[facility] LABORATORYCLIA [id number] [address] [place] [facility] WBC (Bld) [#/Vol] 12.24 10*3/uL High 3.70-11.00 [facility] Comment on above: Order Comment: Speci men Type: BLOOD SPECIMEN Performed By: #### 5 8410-2 ####[facility] LABORATORYCLIA [id number] [address] [place] CONSULTon 06-15-2021 CONSULT Normal [facility] Comment: Speci men Type: URINE SPECIMENOrdering Facility: [facility] Address: [address] [place] [address] Performed By: #### U TPR, 16159-1, 51083-0, 34627-1 ####[facility] LABORATORYCLIA [id number] [address] [facility] Comprehensive metabolic 2000 panelon 06-15-2021 Albumin [Mass/Vol] 2.8 g/dL Low 3.9-4.9 [facility] Comment on above: Order Comment: Speci men Type: BLOOD SPECIMENOrdering Facility: [facility] Address: [address] [place] [address] Performed By: #### 2 4323-8 ####[facility] LABORATORYCLIA [id number] [address] [place] ALP [Catalytic activity/Vol] 74 U/L Normal 38-113 [facility] Comment on above: Order Comment: Speci men Type: BLOOD SPECIMENOrdering Facility: [facility] Address: [address] [place] [address] Performed By: #### 2 4323-8 ####[facility] LABORATORYCLIA [id number] [address] ALT With P-5'-P [Catalytic activity/Vol] 50 U/L Normal 10-54 [facility] Comment on above: Order Comment: Speci men Type: BLOOD SPECIMENOrdering Facility: [facility] Address: [address] [place] [address] Performed By: #### 2 4323-8 ####[facility] LABORATORYCLIA [id number] [address] [place] Anion gap [Moles/Vol] 12 mmol/L Normal 9-18 [facility] Comment on above: Order Comment: Speci men Type: BLOOD SPECIMENOrdering Facility: [facility] Address: [address] [place] [address] Performed By: #### 2 4323-8 ####[facility] LABORATORYCLIA [id number] [address] [place] AST With P-5'-P [Catalytic activity/Vol] 36 U/L Normal 14-40 [facility] Comment on above: Order Comment: Speci men Type: BLOOD SPECIMENOrdering Facility: [facility] Address: [address] [place] [address] Performed By: #### 2 4323-8 ####[facility] LABORATORYCLIA [id number] [address] [place] Bilirubin [Mass/Vol] 0.5 mg/dL Normal 0.2-1.3 [facility] Comment on above: Order Comment: Speci men Type: BLOOD SPECIMENOrdering Facility: [facility] Address: [address] [place] [address] Performed By: #### 2 4323-8 ####[facility] LABORATORYCLIA [id number] [address] [place] Calcium [Mass/Vol] 8.8 mg/dL Normal 8.5-10.2 [facility] Comment on above: Order Comment: Speci men Type: BLOOD SPECIMENOrdering Facility: [facility] Address: [address] [place] [address] Performed By: #### 2 4323-8 ####[facility] LABORATORYCLIA [id number] [place] [address] [place] Chloride [Moles/Vol] 126 mmol/L High 97-105 [facility] Comment on above: Order Comment: Speci men Type: BLOOD SPECIMENOrdering Facility: [facility] Address: [address] [place] [address] Performed By: #### 2 4323-8 ####[facility] LABORATORYCLIA [id number] [place] [address] [place] CO2 [Moles/Vol] 24 mmol/L Normal 22-30 [facility] Comment on above: Order Comment: Speci men Type: BLOOD SPECIMENOrdering Facility: [facility] Address: [address] [place] [address] Performed By: #### 2 4323-8 ####[facility] LABORATORYCLIA [id number] [address] [place] Creatinine [Mass/Vol] 0.84 mg/dL Normal 0.73-1.22 [facility] Comment on above: Order Comment: Shira feldman Type: BLOOD SPECIMENOrdering Facility: [facility] Address: [address] [place] [address] Performed By: #### 2 4323-8 ####[facility] LABORATORYCLIA [id number] [place] [address] [place] GFR/1.73 sq M.predicted MDRD (S/P/Bld) [Vol rate/Area] mL/min/{1.73_m2} Normal [facility] Comment on above: Order Comment: Shira feldman Type: BLOOD SPECIMENOrdering Facility: [facility] Address: [address] [place] [address] Result Comment: >60e GFR (Estimated GFR) Units [...] By: #### 2 4323-8 ####[facility] LABORATORYCLIA [id number] [address] [place] Glucose [Mass/Vol] 142 mg/dL High 74-99 [facility] Comment on above: Order Comment: Shira feldman Type: BLOOD SPECIMENOrdering Facility: [facility] Address: [address] [address] Result Comment: The [place] Diabetes Association (ADA) provides guidance for cutoff [...] Standards of Medical Care in Diabetes 2016, [place] Diabetes Association. Diabetes Care. 2016.39(Suppl 1). Performed By: #### 2 4323-8 ####[facility] LABORATORYCLIA [id number] [place] [address] [place] Potassium [Moles/Vol] 3.8 mmol/L Normal 3.7-5.1 [facility] Comment on above: Order Comment: Shira men Type: BLOOD SPECIMENOrdering Facility: [facility] Address: [address] [place] [address] Performed By: #### 2 4323-8 ####[facility] LABORATORYCLIA [id number] [place] [address] [place] Protein [Mass/Vol] 6.1 g/dL Low 6.3-8.0 [facility] Comment on above: Order Comment: Shira feldman Type: BLOOD SPECIMENOrdering Facility: [facility] Address: [address] [place] [address] Performed By: #### 2 4323-8 ####[facility] LABORATORYCLIA [id number] [place] [address] [place] Sodium [Moles/Vol] 162 mmol/L High 136-144 [facility] Comment on above: Order Comment: Johni men Type: BLOOD SPECIMENOrdering Facility: [facility] Address: [address] [place] [address] Performed By: #### 2 4323-8 ####[facility] LABORATORYCLIA [id number] [place] [address] [place] Urea nitrogen [Mass/Vol] 33 mg/dL High 9-24 [facility] Comment on above: Order Comment: Speci men Type: BLOOD SPECIMENOrdering Facility: [facility] Address: [address] [place] [address] Performed By: #### 2 4323-8 ####[facility] [id number] [address] [place] Creatinine Unsp time (U) [Ma ss/Vol]on 06-15-2021 Creatinine (U) [Mass/Vol] 87.0 mg/dL Normal 46.8-314.5 [facility] Comment on above: Order Comment: Speci men Type: URINE SPECIMENOrdering Facility: [facility] Address: [address] [place] [address] Performed By: #### U TPR, 08349-6, 93797-9, 80186-6 ####[facility]ITALCL[facility] [id number] [address] [place] HIGH SENSITIVITY TROPONIN To n 06-15-2021 HIGH SENSITIVITY TAMIKO 23 ng/L High <12 [facility] Comment on above: Order Comment: Speci men Type: BLOOD SPECIMENOrdering Facility: [facility] Address: [address] [place] [address] Result Comment: When assessing risk for acute [...] day MACE. Performed By: #### P JULIANNE, 90003-1, HSTNT ####[facility] [id number] [place] [address] [place] Lactate (Bld) [Moles/Vol]on 06-15-2021 Lactate [Moles/Vol] 0.8 mmol/L Normal 0.5-2.2 [facility] Comment on above: Order Comment: Speci men Type: BLOOD SPECIMENOrdering Facility: [facility] Address: [address] [place] [address] Performed By: #### 3 2693-4 ####[facility] [id number] [address] [place] Magn[facility] Magnesium [Mass/Vol] 3.0 mg/dL High 1.7-2.3 [facility] Comment on above: Order Comment: Speci men Type: BLOOD SPECIMEN Performed By: #### 2 4321-2, 2777-1, 91431-2 ####[facility] [id number] [address] [place] NT-proBNP [facility] 06-15 Natriuretic peptide.B prohormone N-Terminal [Mass/Vol] 265 pg/mL High <125 [facility] Comment on above: Order Comment: Speci men Type: BLOOD SPECIMENOrdering Facility: [facility] Address: [address] [place] [address] Performed By: #### P JULIANNE, 61428-9, HSTNT ####[facility]ITALIA [id number] [address] [place] Osmolality Uron 06-15-2021 Osmolality (U) [Osmolality] 606 mosm/kg Normal 50-1,200 [facility] Comment on above: Order Comment: Speci men Type: URINE SPECIMENOrdering Facility: [facility] Address: [address] [place] [address] Performed By: #### 2 695-5 ####[facility] [id number] [address] PROCALCITONIN (LAB)on 2021 Procalcitonin [Mass/Vol] 0.21 ng/mL High <0.09 [facility] Comment on above: Order Comment: Speci men Type: BLOOD SPECIMENOrdering Facility: [facility] Address: [address] [place] [address] Result Comment: For a guided interpretation of test results, please visit the Change in Procalcitonin Calculator, [email or web address]. Performed By: #### P JULIANNE, 2951-2 ####[facility] LABORATORYCLIA [id number] [address] Procalcitonin [Mass/Vol] 0.17 ng/mL High <0.09 [facility] Comment on above: Order Comment: Shira feldman Type: BLOOD SPECIMENOrdering Facility: [facility] Address: [address] [place] [address] Result Comment: For a guided interpretation of test results, please visit the Change in Procalcitonin Calculator, [email or web address]. Performed By: #### P JULIANNE, 90359-5, HSTNT ####[facility] LABORATORYCLIA [id number] [address] PROTEIN RANDOM URon 06-15-19 22 Protein (U) [Mass/Vol] 175 mg/dL High 0-20 [facility] Comment on above: Order Comment: Speci francia Type: URINE SPECIMENOrdering Facility: [facility] Address: [address] [place] [address] Performed By: #### U TPR, 56287-8, 51655-1, 65794-2 ####[facility]ITALCLIA [id number] [address] PT panel Coag (PPP)on 2021 INR Coag (PPP) [Relative time] 1.1 {INR} Normal <1.4 [facility] Comment on above: Order Comment: Johni francia Type: BLOOD SPECIMENOrdering Facility: [facility] Address: [address] [place] [address] Result Comment: Yris min K Antagonist (VKA) Therapeutic Range: INR 2 to 3 (Target INR of 2.5)Note: For patients treated with VKA drugs, such as warfarin, the [employer] 2012 Guideline recommends [...] al. Chest 2012, 141:7S-47SNishmariangel RA, et al. [facility] 2017, 70: 252-289 Performed By: #### 3 4528-0, 54630-2 ####[facility] LABORATORYCLIA [id number] [place] [address] [place] PT Coag (PPP) [Time] 11.4 s Normal <13.1 [facility] Comment on above: Order Comment: Speci men Type: BLOOD SPECIMENOrdering Facility: [facility] Address: [address] [place] [address] Performed By: #### 3 4528-0, 80806-0 ####[facility] [id number] [place] [address] [place] Phosphate SerPl-mCncon 06-15 Phosphate [Mass/Vol] 2.6 mg/dL Low 2.7-4.8 [facility] Comment on above: Order Comment: Speci men Type: BLOOD SPECIMEN Performed By: #### 2 4321-2, 2777-1, 07245-5 ####[facility]PITALCLIA [id number] [place] [address] [place] Sodium ?Tm Ur-sCncon 022 Sodium Unsp time (U) [Moles/Vol] 34 mmol/L Normal 14-216 [facility] Comment on above: Order Comment: Speci men Type: URINE SPECIMENOrdering Facility: [facility] Address: [address] [place] [address] Performed By: #### U TPR, 62059-1, 75295-4, 48777-1 ####[facility] LABORATORYCLIA [id number] [address] [place] Sodium SerPl-sCncon 06-15-19 22 Sodium [Moles/Vol] 159 mmol/L High 136-144 [facility] Comment on above: Order Comment: Speci men Type: BLOOD SPECIMENOrdering Facility: [facility] Address: [address] [place] [address] Performed By: #### P JULIANNE, 2951-2 ####[facility] LABORATORYCLIA [id number] [address] THERAPY NTon 06-15-2021 THERAPY NT Normal [facility] Urinalysis complete panel (U )on 06-15-2021 Bacteria LM.HPF (Urine sed) [#/Area] None Seen Normal None Seen [facility] Comment on above: Order Comment: Speci men Type: URINE SPECIMENOrdering Facility: [facility] Address: [address] [place] [address] Performed By: #### 2 4356-8 ####[facility] LABORATORYCLIA [id number] [address] Bilirubin Ql (U) Negative Normal Negative [facility] Comment on above: Order Comment: Speci men Type: URINE SPECIMENOrdering Facility: [facility] Address: [address] [place] [address] Performed By: #### 2 4356-8 ####[facility]ORATORYCLIA [id number] [address] Clarity (Unsp spec) Cloudy Abnormal Clear [facility] Comment on above: Order Comment: Speci men Type: URINE SPECIMENOrdering Facility: [facility] Address: [address] [place] [address] Performed By: #### 2 4356-8 ####[facility]ORATORYCLIA [id number] [address] Color (U) Yellow Normal Yellow [facility] Comment on above: Order Comment: Speci men Type: URINE SPECIMENOrdering Facility: [facility] Address: [address] [place] [address] Performed By: #### 2 4356-8 ####[facility]ORATORYCLIA [id number] [address] Epithelial cells LM.HPF (Urine sed) [#/Area] 7.1 /[HPF] Normal [facility] Comment on above: Order Comment: Speci men Type: URINE SPECIMENOrdering Facility: [facility] Address: [address] [place] [address] Performed By: #### 2 4356-8 ####[facility]ORATORYCLIA [id number] [address] Glucose Test strip (U) [Mass/Vol] Negative Normal Negative [facility] Comment on above: Order Comment: Speci men Type: URINE SPECIMENOrdering Facility: [facility] Address: [address] [place] [address] Performed By: #### 2 4356-8 ####[facility]ORATORYCLIA [id number] [address] Granular casts (Urine sed) [#/Area] /[LPF] Abnormal 0 /LPF [facility] Comment on above: Order Comment: Speci men Type: URINE SPECIMENOrdering Facility: [facility] Address: [address] [place] [address] Performed By: #### 2 4356-8 ####[facility]ORATORYCLIA [id number] [address] Hemoglobin Ql (U) Moderate Abnormal Negative [facility] Comment on above: Order Comment: Speci men Type: URINE SPECIMENOrdering Facility: [facility] Address: [address] [place] [address] Performed By: #### 2 4356-8 ####[facility] LABORATORYCLIA [id number] [address] Hyaline casts (Urine sed) [#/Area] /[LPF] Abnormal 0 /LPF [facility] Comment on above: Order Comment: Speci men Type: URINE SPECIMENOrdering Facility: [facility] Address: [address] [place] [address] Performed By: #### 2 4356-8 ####[facility]ATORYCLIA [id number] [address] Ketones Ql (U) Negative Normal Negative [facility] Comment on above: Order Comment: Speci men Type: URINE SPECIMENOrdering Facility: [facility] Address: [address] [place] [address] Performed By: #### 2 4356-8 ####[facility]ATORYCLIA [id number] [address] Leukocyte esterase Test strip Ql (U) Negative Normal Negative [facility] Comment on above: Order Comment: Speci men Type: URINE SPECIMENOrdering Facility: [facility] Address: [address] [place] [address] Performed By: #### 2 4356-8 ####[facility] LABORATORYCLIA [id number] [address] [place] Nitrite Ql (U) Negative Normal Negative [facility] Comment on above: Order Comment: Speci men Type: URINE SPECIMENOrdering Facility: [facility] Address: [address] [place] [address] Performed By: #### 2 4356-8 ####[facility]ORATORYCLIA [id number] [address] [place] pH (U) 6.0 [pH] Normal 5.0-8.0 [facility] Comment on above: Order Comment: Speci men Type: URINE SPECIMENOrdering Facility: [facility] Address: [address] [place] [address] Performed By: #### 2 4356-8 ####[facility]ORATORYCLIA [id number] [address] Protein (U) [Mass/Vol] 100 mg/dL Abnormal Negative [facility] Comment on above: Order Comment: Speci men Type: URINE SPECIMENOrdering Facility: [facility] Address: [address] [place] [address] Performed By: #### 2 4356-8 ####[facility]ORATORYCLIA [id number] [address] RBC LM.HPF (Urine sed) [#/Area] 0-3 /HPF Normal 0-3 /HPF [facility] Comment on above: Order Comment: Speci men Type: URINE SPECIMENOrdering Facility: [facility] Address: [address] [place] [address] Performed By: #### 2 4356-8 ####[facility]ORATORYCLIA [id number] [address] Specific gravity (U) [Rel density] 1.024 Normal 1.005-1.030 [facility] Comment on above: Order Comment: Speci men Type: URINE SPECIMENOrdering Facility: [facility] Address: [address] [place] [address] Performed By: #### 2 4356-8 ####[facility]ORATORYCLIA [id number] [address] Urobilinogen Ql (U) 0.2 EU/dL Normal 0.2-1.0 EU/dL [facility] Comment on above: Order Comment: Speci men Type: URINE SPECIMENOrdering Facility: [facility] Address: [address] [place] [address] Performed By: #### 2 4356-8 ####[facility]ORATORYCLIA [id number] [address] WBC LM.HPF (Urine sed) [#/Area] 0-5 /HPF Normal 0-5 /HPF [facility] Comment on above: Order Comment: Speci men Type: URINE SPECIMENOrdering Facility: [facility] Address: [address] [place] [address] Performed By: #### 2 4356-8 ####[facility] LABORATORYCLIA [id number] [address] XR CHEST 1V FRONTALon 2021 XR CHEST 1V FRONTAL Normal [facility] XR CHEST 1V FRONTAL PORTon 0 06-15-2021 XR CHEST 1V FRONTAL PORT Normal [facility] XR CHEST 1V FRONTAL PORT Normal [facility] aPTT PPPon 06-15-2021 aPTT Coag (PPP) [Time] 30.9 s Normal 23.0-32.4 [facility] Comment on above: Order Comment: Speci men Type: BLOOD SPECIMENOrdering Facility: [facility] Address: [address] [place] [id number] Performed By: #### 3 4528-0, 70138-6 ####[facility]ORATORYCLIA [id number] [place] [address] [place] Basic metabolic 2000 panelon 06-14-2021 Anion gap [Moles/Vol] 8 mmol/L Low 9-18 [facility] Comment on above: Order Comment: Speci men Type: BLOOD SPECIMEN Performed By: #### 2 4321-2, 2776-05, ####[facility]ORATORYCLIA [id number] [place] [address] [place] Calcium [Mass/Vol] 8.9 mg/dL Normal 8.5-10.2 [facility] Comment on above: Order Comment: Speci men Type: BLOOD SPECIMEN Performed By: #### 2 4321-2, 2776-05, ####[facility]ORATORYCLIA [id number] [place] [address] [place] Chloride [Moles/Vol] 121 mmol/L High 97-105 [facility] Comment on above: Order Comment: Speci men Type: BLOOD SPECIMEN Performed By: #### 2 4321-2, 2776-, ####[facility]ORATORYCLIA [id number] [place] [address] [place] CO2 [Moles/Vol] 30 mmol/L Normal 22-30 [facility] Comment on above: Order Comment: Speci men Type: BLOOD SPECIMEN Performed By: #### 2 4321-2, 2777-, ####[facility]ORATORYCLIA [id number] [place] [address] [place] Creatinine [Mass/Vol] 0.78 mg/dL Normal 0.73-1.22 [facility] Comment on above: Order Comment: Speci men Type: BLOOD SPECIMEN Performed By: #### 2 4321-2, 277-, ####[facility]ORATORYCLIA [id number] [place] [address] [place] GFR/1.73 sq M.predicted MDRD [...] GFR. Performed By: #### 2 4321-2, 2777, ####[facility]ORATORYCLIA [id number] [place] [id number] [place] Glucose [Mass/Vol] 132 mg/dL High 74-99 [facility] Comment on above: Order Comment: Speci men Type: BLOOD SPECIMEN Result Comment: The [place] Diabetes Association (ADA) provides guidance for cutoff [...] Standards of Medical Care in Diabetes 2016, [place] Diabetes Association. Diabetes Care. 2016.39(Suppl 1). Performed By: #### 2 4321-2, 7-, ####[facility] LABORATORYCLIA [id number] [address] STATES OF [facility] Potassium [Moles/Vol] 3.7 mmol/L Normal 3.7-5.1 [facility] Comment on above: Order Comment: Speci men Type: BLOOD SPECIMEN Performed By: #### 2 4321-2, 2776-05, ####[facility] LABORATORYCLIA [id number] [address] Sodium [Moles/Vol] 159 mmol/L High 136-144 [facility] Comment on above: Order Comment: Speci men Type: BLOOD SPECIMEN Performed By: #### 2 4321-2, 2776-05, ####[facility]ORATORYCLIA [id number] [address] Urea nitrogen [Mass/Vol] 35 mg/dL High 9-24 [facility] Comment on above: Order Comment: Speci men Type: BLOOD SPECIMEN Performed By: #### 2 4321-2, 2776-05, ####[facility] LABORATORYCLIA [id number] [address] CASE MANAGEMon 06-14-2021 CASE MANAGEM Normal [facility] CBC panel Auto (Bld)on 06-14 Erythrocyte distribution width (RBC) [Ratio] 16.2 % High 11.5-15.0 [facility] Comment on above: Order Comment: Speci men Type: BLOOD SPECIMEN Performed By: #### 5 8410-2 ####[facility] LABORATORYCLIA [id number] [address] Hematocrit (Bld) [Volume fraction] 35.2 % Low 39.0-51.0 [facility] Comment on above: Order Comment: Speci men Type: BLOOD SPECIMEN Performed By: #### 5 8410-2 ####[facility]ORATORYCLIA [id number] [address] Hemoglobin (Bld) [Mass/Vol] 10.1 g/dL Low 13.0-17.0 [facility] Comment on above: Order Comment: Speci men Type: BLOOD SPECIMEN Performed By: #### 5 8410-2 ####[facility] LABORATORYCLIA [id number] [address] MCH (RBC) [Entitic mass] 27.2 pg Normal 26.0-34.0 [facility] Comment on above: Order Comment: Speci men Type: BLOOD SPECIMEN Performed By: #### 5 8410-2 ####[facility]ORATORYCLIA [id number] [address] MCHC (RBC) [Mass/Vol] 28.7 g/dL Low 30.5-36.0 [facility] Comment on above: Order Comment: Speci men Type: BLOOD SPECIMEN Performed By: #### 5 8410-2 ####[facility]ORATORYCLIA [id number] [address] MCV (RBC) [Entitic vol] 94.6 fL Normal 80.0-100.0 [facility] Comment on above: Order Comment: Speci men Type: BLOOD SPECIMEN Performed By: #### 5 8410-2 ####[facility]ORATORYCLIA [id number] [address] Nucleated RBC (Bld) [#/Vol] 10*3/uL Normal <0.01 [facility] Comment on above: Order Comment: Speci men Type: BLOOD SPECIMEN Performed By: #### 5 8410-2 ####[facility]ORATORYCLIA [id number] [address] Platelet mean volume (Bld) [Entitic vol] 11.0 fL Normal 9.0-12.7 [facility] Comment on above: Order Comment: Speci men Type: BLOOD SPECIMEN Performed By: #### 5 8410-2 ####[facility] LABORATORYCLIA [id number] [address] Platelets (Bld) [#/Vol] 287 10*3/uL Normal 150-400 [facility] Comment on above: Order Comment: Speci men Type: BLOOD SPECIMEN Performed By: #### 5 8410-2 ####[facility]ORATORYCLIA [id number] [address] RBC (Bld) [#/Vol] 3.72 10*6/uL Low 4.20-6.00 [facility] Comment on above: Order Comment: Speci men Type: BLOOD SPECIMEN Performed By: #### 5 8410-2 ####[facility]ORATORYCLIA [id number] [address] WBC (Bld) [#/Vol] 12.23 10*3/uL High 3.70-11.00 [facility] Comment on above: Order Comment: Speci men Type: BLOOD SPECIMEN Performed By: #### 5 8410-2 ####[facility]ORATORYCLIA [id number] [address] Comprehensive metabolic 2000 panelon 06-14-2021 Albumin [Mass/Vol] 3.1 g/dL Low 3.9-4.9 [facility] Comment on above: Order Comment: Speci men Type: BLOOD SPECIMEN Performed By: #### 2 4323-8, HSTNT, 2776-, ####[facility] LABORATORYCLIA [id number] [address] ALP [Catalytic activity/Vol] 72 U/L Normal 38-113 [facility] Comment on above: Order Comment: Speci men Type: BLOOD SPECIMEN Performed By: #### 2 4323-8, HSTNT, 7-, 26562-1 ####[facility]ATORYCLIA [id number] [place], [place] [id number] [place] [address] [place] [facility] ALT With P-5'-P [Catalytic activity/Vol] 57 U/L High 10-54 [facility] Comment on above: Order Comment: Speci men Type: BLOOD SPECIMEN Performed By: #### 2 4323-8, HSTNT, 2776-1, ####[facility]ATORYCLIA [id number] [place], [place] [address] [place] [address] Anion gap [Moles/Vol] 9 mmol/L Normal 9-18 [facility] Comment on above: Order Comment: Speci men Type: BLOOD SPECIMEN Performed By: #### 2 4323-8, HSTNT, 2776-05, ####[facility]ORYCLIA [id number] [place], [place] [id number] [place] [address] AST With P-5'-P [Catalytic activity/Vol] 33 U/L Normal 14-40 [facility] Comment on above: Order Comment: Speci men Type: BLOOD SPECIMEN Performed By: #### 2 4323-8, HSTNT, 2776-05, ####[facility]ORYCLIA [id number] [place], [place] [id number] [place] [address] OF [facility] Bilirubin [Mass/Vol] 0.5 mg/dL Normal 0.2-1.3 [facility] Comment on above: Order Comment: Speci men Type: BLOOD SPECIMEN Performed By: #### 2 4323-8, HSTNT, 2776-05, ####[facility]ATORYCLIA [id number] [place], [place] [id number] [place] [address] [place] [facility] Calcium [Mass/Vol] 8.8 mg/dL Normal 8.5-10.2 [facility] Comment on above: Order Comment: Speci men Type: BLOOD SPECIMEN Performed By: #### 2 4323-8, HSTNT, 2776-05, ####[facility]ORYCLIA [id number] [place], [place] [address] [place] [address] [place] Chloride [Moles/Vol] 124 mmol/L High 97-105 [facility] Comment on above: Order Comment: Speci men Type: BLOOD SPECIMEN Performed By: #### 2 4323-8, HSTNT, 2776-05, ####[facility] LABORATORYCLIA [id number] [place], [place] [address] [place] [address] [place] [facility] CO2 [Moles/Vol] 29 mmol/L Normal 22-30 [facility] Comment on above: Order Comment: Speci men Type: BLOOD SPECIMEN Performed By: #### 2 4323-8, HSTNT, 2776-05, ####[facility] LABORATORYCLIA [id number] [address] STATES [place] [facility] Creatinine [Mass/Vol] 0.73 mg/dL Normal 0.73-1.22 [facility] Comment on above: Order Comment: Speci men Type: BLOOD SPECIMEN Performed By: #### 2 4323-8, HSTNT, 2776-05, ####[facility] LABORATORYCLIA [id number] [address] [place] GFR/1.73 sq M.predicted [...] 2 4323-8, HSTNT, 2776-05, ####[facility] LABORATORYCLIA [id number] [place] [address] [place] Glucose [Mass/Vol] 137 mg/dL High 74-99 [facility] Comment on above: Order Comment: Speci men Type: BLOOD SPECIMEN Result Comment: The [place] Diabetes Association (ADA) provides guidance for cutoff [...] Standards of Medical Care in Diabetes 2016, [place] Diabetes Association. Diabetes Care. 2016.39(Suppl 1). Performed By: #### 2 4323-8, HSTNT, ####[facility]ORATORYCLIA [id number] [place] [address] [place] Potassium [Moles/Vol] 3.6 mmol/L Low 3.7-5.1 [facility] Comment on above: Order Comment: Speci men Type: BLOOD SPECIMEN Performed By: #### 2 4323-8, HSTNT, ####[facility]ORATORYCLIA [id number] [place] [address] [place] Protein [Mass/Vol] 5.9 g/dL Low 6.3-8.0 [facility] Comment on above: Order Comment: Speci men Type: BLOOD SPECIMEN Performed By: #### 2 4323-8, HSTNT, ####[facility]ORATORYCLIA [id number] [place] [address] [place] Sodium [Moles/Vol] 162 mmol/L High 136-144 [facility] Comment on above: Order Comment: Speci men Type: BLOOD SPECIMEN Performed By: #### 2 4323-8, HSTNT, 2776-05, ####[facility] LABORATORYCLIA [id number] [address] STATES [facility] Urea nitrogen [Mass/Vol] 33 mg/dL High 9-24 [facility] Comment on above: Order Comment: Speci men Type: BLOOD SPECIMEN Performed By: #### 2 4323-8, HSTNT, ####[facility] LABORATORYCLIA [id number] [address] HIGH SENSITIVITY TROPONIN To n 06-14-2021 [...] By: #### H STNT ####[facility] LABORATORYCLIA [id number] [address] HIGH SENSITIVITY TAMIKO 22 ng/L High [...] MACE. Performed By: #### 2 4323-8, HSTNT, ####[facility]ORATORYCLIA [id number] [address] Magnesium SerPl-mCncon 06-14 Magnesium [Mass/Vol] 2.9 mg/dL High 1.7-2.3 [facility] Comment on above: Order Comment: Speci men Type: BLOOD SPECIMEN Performed By: #### 2 4323-8, HSTNT, 2776-, ####[facility] LABORATORYCLIA [id number] [place], [place] [address] [place] [address] STATES [facility] Magnesium [Mass/Vol] 3.0 mg/dL High 1.7-2.3 [facility] Comment on above: Order Comment: Speci men Type: BLOOD SPECIMEN Performed By: #### 2 4321-2, 277-1, ####[facility] LABORATORYCLIA [id number] [place], [place] [id number] [place] [address] [place] NURSING PROGon 06-14-2021 NURSING PROG Normal [facility] NUTRITIONon 06-14-2021 NUTRITION Normal [facility] Phosphate SerPl-mCncon 06-14 Phosphate [Mass/Vol] 2.4 mg/dL Low 2.7-4.8 [facility] Comment on above: Order Comment: Speci men Type: BLOOD SPECIMEN Performed By: #### 2 4323-8, HSTNT, 2776-05, ####[facility] [facility] LABORATORYCLIA [id number] [address] Phosphate [Mass/Vol] 3.2 mg/dL Normal 2.7-4.8 [facility] Comment on above: Order Comment: Speci men Type: BLOOD SPECIMEN Performed By: #### 2 4321-2, 2776-, ####[facility] LABORATORYCLIA [id number] [place], [place] [id number] [place] [address] OF [facility] THERAPY NTon 06-14-2021 THERAPY NT Normal [...] 2 4321-2, , 2776-05 ####[facility] LABORATORYCLIA [id number] [address] STATES OF [facility] Calcium [Mass/Vol] 8.8 mg/dL Normal 8.5-10.2 [facility] Comment on above: Order Comment: Speci men Type: BLOOD SPECIMEN Performed By: #### 2 4321-2, , 2776-05 ####[facility] LABORATORYCLIA [id number] [address] [place] Chloride [Moles/Vol] 120 mmol/L High 97-105 [facility] Comment on above: Order Comment: Speci men Type: BLOOD SPECIMEN Performed By: #### 2 4321-2, , 2776-05 ####[facility] LABORATORYCLIA [id number] [address] [place] CO2 [Moles/Vol] 28 mmol/L Normal 22-30 [facility] Comment on above: Order Comment: Speci men Type: BLOOD SPECIMEN Performed By: #### 2 1-2, , 2776-05 ####[facility] LABORATORYCLIA [id number] [address] [place] Creatinine [Mass/Vol] 0.78 mg/dL Normal 0.73-1.22 [facility] Comment on above: Order Comment: Speci men Type: BLOOD SPECIMEN Performed By: #### 2 4321-2, , 2776-05 ####[facility] LABORATORYCLIA [id number] [place] [address] [place] GFR/1.73 sq M.predicted [...] 2 4321-2, , 2776-05 ####[facility] LABORATORYCLIA [id number] [place] [address] [place] Glucose [Mass/Vol] 126 mg/dL High 74-99 [facility] Comment on above: Order Comment: Speci men Type: BLOOD SPECIMEN Result Comment: The Australian Diabetes Association (ADA) provides guidance for cutoff [...] Standards of Medical Care in Diabetes 2016, [place] Diabetes Association. Diabetes Care. 2016.39(Suppl 1). Performed By: #### 2 4321-2, , 2776-05 ####[facility] LABORATORYCLIA [id number] [place] [id number] [place] Potassium [Moles/Vol] 3.6 mmol/L Low 3.7-5.1 [facility] Comment on above: Order Comment: Speci men Type: BLOOD SPECIMEN Performed By: #### 2 4321-2, , 2776-05 ####[facility] LABORATORYCLIA [id number] [place] [id number] [place] Sodium [Moles/Vol] 155 mmol/L High 136-144 [facility] Comment on above: Order Comment: Speci men Type: BLOOD SPECIMEN Performed By: #### 2 4321-2, , 2776-05 ####[facility]ORATORYCLIA [id number] [place], [place] [address] [place] [address] STATES OF [facility] Urea nitrogen [Mass/Vol] 36 mg/dL High 9-24 [facility] Comment on above: Order Comment: Speci men Type: BLOOD SPECIMEN Performed By: #### 2 4321-2, , 2776-05 ####[facility]ORATORYCLIA [id number] [place], [place] [address] [place] [address] STATES OF [facility] Anion gap [Moles/Vol] 6 mmol/L Low 9-18 [facility] Comment on above: Order Comment: Speci men Type: BLOOD SPECIMEN Performed By: #### 2 4321-2, 2776-05, ####[facility]ORATORYCLIA [id number] [place], [place] [address] [place] [address] STATES OF [facility] Calcium [Mass/Vol] 6.5 mg/dL Low 8.5-10.2 [facility] Comment on above: Order Comment: Speci men Type: BLOOD SPECIMEN Performed By: #### 2 4321-2, 2776-05, ####[facility]ORATORYCLIA [id number] [place], [place] [address] [place] [address] [place] Chloride [Moles/Vol] 124 mmol/L High 97-105 [facility] Comment on above: Order Comment: Speci men Type: BLOOD SPECIMEN Performed By: #### 2 4321-2, 2776-05, ####[facility]ORATORYCLIA [id number] [place] [address] [place] CO2 [Moles/Vol] 24 mmol/L Normal 22-30 [facility] Comment on above: Order Comment: Speci men Type: BLOOD SPECIMEN Performed By: #### 2 4321-2, 2776-05, ####[facility]ORATORYCLIA [id number] [place] [address] [place] Creatinine [Mass/Vol] 0.61 mg/dL Low 0.73-1.22 [facility] Comment on above: Order Comment: Speci men Type: BLOOD SPECIMEN Performed By: #### 2 4321-2, 2777-, ####[facility] LABORATORYCLIA [id number] [place] [address] [place] GFR/1.73 sq M.predicted MDRD [...] #### 2 4321-2, 2777-, ####[facility] LABORATORYCLIA [id number] [place] [address] [place] Glucose [Mass/Vol] 100 mg/dL High 74-99 [facility] Comment on above: Order Comment: Speci men Type: BLOOD SPECIMEN Result Comment: The [place] Diabetes Association (ADA) provides guidance for cutoff [...] Standards of Medical Care in Diabetes 2016, [place] Diabetes Association. Diabetes Care. 2016.39(Suppl 1). Performed By: #### 2 4321-2, 2777-1, ####[facility] LABORATORYCLIA [id number] [place], [place] [address] [place] [address] STATES [facility] Potassium [Moles/Vol] 2.7 mmol/L Low 3.7-5.1 [facility] Comment on above: Order Comment: Speci men Type: BLOOD SPECIMEN Performed By: #### 2 4321-2, 277-, ####[facility] LABORATORYCLIA [id number] [place], [place] [address] [place] [address] STATES OF [facility] Sodium [Moles/Vol] 154 mmol/L High 136-144 [facility] Comment on above: Order Comment: Speci men Type: BLOOD SPECIMEN Performed By: #### 2 4321-2, 2776-, ####[facility] LABORATORYCLIA [id number] [address] STATES [facility] Urea nitrogen [Mass/Vol] 29 mg/dL High 9-24 [facility] Comment on above: Order Comment: Speci men Type: BLOOD SPECIMEN Performed By: #### 2 4321-2, 2776-05, ####[facility] LABORATORYCLIA [id number] [address] CASE MANAGEMon 06-13-2021 CASE MANAGEM Normal [facility] CBC panel Auto (Bld)on 06-13 Erythrocyte distribution width (RBC) [Ratio] 15.9 % High 11.5-15.0 [facility] Comment on above: Order Comment: Speci men Type: BLOOD SPECIMEN Performed By: #### 5 8410-2 ####[facility]ORATORYCLIA [id number] [address] Hematocrit (Bld) [Volume fraction] 34.3 % Low 39.0-51.0 [facility] Comment on above: Order Comment: Speci men Type: BLOOD SPECIMEN Performed By: #### 5 8410-2 ####[facility]ORATORYCLIA [id number] [address] Hemoglobin (Bld) [Mass/Vol] 9.9 g/dL Low 13.0-17.0 [facility] Comment on above: Order Comment: Speci men Type: BLOOD SPECIMEN Performed By: #### 5 8410-2 ####[facility] LABORATORYCLIA [id number] [address] MCH (RBC) [Entitic mass] 27.3 pg Normal 26.0-34.0 [facility] Comment on above: Order Comment: Speci men Type: BLOOD SPECIMEN Performed By: #### 5 8410-2 ####[facility] LABORATORYCLIA [id number] [address] MCHC (RBC) [Mass/Vol] 28.9 g/dL Low 30.5-36.0 [facility] Comment on above: Order Comment: Speci men Type: BLOOD SPECIMEN Performed By: #### 5 8410-2 ####[facility] LABORATORYCLIA [id number] [address] MCV (RBC) [Entitic vol] 94.5 fL Normal 80.0-100.0 [facility] Comment on above: Order Comment: Speci men Type: BLOOD SPECIMEN Performed By: #### 5 8410-2 ####[facility] LABORATORYCLIA [id number] [address] Nucleated RBC (Bld) [#/Vol] 10*3/uL Normal <0.01 [facility] Comment on above: Order Comment: Speci men Type: BLOOD SPECIMEN Performed By: #### 5 8410-2 ####[facility] LABORATORYCLIA [id number] [address] Platelet mean volume (Bld) [Entitic vol] 11.3 fL Normal 9.0-12.7 [facility] Comment on above: Order Comment: Speci men Type: BLOOD SPECIMEN Performed By: #### 5 8410-2 ####[facility] LABORATORYCLIA [id number] [address] OF [facility] Platelets (Bld) [#/Vol] 269 10*3/uL Normal 150-400 [facility] Comment on above: Order Comment: Speci men Type: BLOOD SPECIMEN Performed By: #### 5 8410-2 ####[facility] LABORATORYCLIA [id number] [address] OF [facility] RBC (Bld) [#/Vol] 3.63 10*6/uL Low 4.20-6.00 [facility] Comment on above: Order Comment: Speci men Type: BLOOD SPECIMEN Performed By: #### 5 8410-2 ####[facility] LABORATORYCLIA [id number] [address] WBC (Bld) [#/Vol] 12.77 10*3/uL High 3.70-11.00 [facility] Comment on above: Order Comment: Speci men Type: BLOOD SPECIMEN Performed By: #### 5 8410-2 ####[facility] LABORATORYCLIA [id number] [address] Gas and Carbon monoxide pane l (BldV)on 06-13-2021 Base excess Calc (BldV) [Moles/Vol] 5.7 mmol/L High 0-2 [facility] Comment on above: Order Comment: Speci men Type: VENOUS BLOOD SPECIMEN Performed By: #### 2 4344-4 ####[facility] LABORATORYCLIA [id number] [address] Body temperature 99.5 [degF] Normal [facility] Comment on above: Order Comment: Speci men Type: VENOUS BLOOD SPECIMEN Performed By: #### 2 4344-4 ####[facility] LABORATORYCLIA [id number] [address] CALCIUM IONIZED, PH CORRECTED 1.24 mmol/L Normal 1.08-1.30 [facility] Comment on above: Order Comment: Speci men Type: VENOUS BLOOD SPECIMEN Performed By: #### 2 4344-4 ####[facility]ATORYCLIA [id number] [address] Calcium.ionized (BldV) [Mass/Vol] 1.23 mmol/L Normal 1.08-1.30 [facility] Comment on above: Order Comment: Speci men Type: VENOUS BLOOD SPECIMEN Performed By: #### 2 4344-4 ####[facility]ATORYCLIA [id number] [address] Carboxyhemoglobin (BldV) [Mass fraction] 1.2 % Normal 0.0-2.0 [facility] Comment on above: Order Comment: Speci men Type: VENOUS BLOOD SPECIMEN Result Comment: Carb oxyhemoglobin Reference Range for Smokers: 2.0-8.0% Performed By: #### 2 4344-4 ####[facility] LABORATORYCLIA [id number] [address] CO2 (BldV) [Partial pressure] 48 mm[Hg] Normal 42-55 [facility] Comment on above: Order Comment: Speci men Type: VENOUS BLOOD SPECIMEN Performed By: #### 2 4344-4 ####[facility]ATORYCLIA [id number] [address] CO2 [Moles/Vol] 28.2 mmol/L Normal 25-29 [facility] Comment on above: Order Comment: Speci men Type: VENOUS BLOOD SPECIMEN Performed By: #### 2 4344-4 ####[facility]ATORYCLIA [id number] [address] CO2 adjusted to patient's actual temperature (BldV) [Partial pressure] 49 mmHg Normal 42-55 [facility] Comment on above: Order Comment: Speci men Type: VENOUS BLOOD SPECIMEN Performed By: #### 2 4344-4 ####[facility]ATORYCLIA [id number] [address] [place] Glucose [Mass/Vol] 131 mg/dL High 60-105 [facility] Comment on above: Order Comment: Speci men Type: VENOUS BLOOD SPECIMEN Performed By: #### 2 4344-4 ####[facility]ORATORYCLIA [id number] [address] HCO3 (Bld) [Moles/Vol] 30.6 mmol/L High 24-28 [facility] Comment on above: Order Comment: Speci men Type: VENOUS BLOOD SPECIMEN Performed By: #### 2 4344-4 ####[facility]ORATORYCLIA [id number] [address] Hematocrit (Bld) [Volume fraction] 32.8 % Low 39.0-51.0 [facility] Comment on above: Order Comment: Speci men Type: VENOUS BLOOD SPECIMEN Performed By: #### 2 4344-4 ####[facility]ORATORYCLIA [id number] [address] Hemoglobin (Bld) [Mass/Vol] 10.6 g/dL Low 13.0-17.0 [facility] Comment on above: Order Comment: Speci men Type: VENOUS BLOOD SPECIMEN Performed By: #### 2 4344-4 ####[facility]ORATORYCLIA [id number] [address] LITERS 6 Liters/min [facility] Comment on above: Order Comment: Speci men Type: VENOUS BLOOD SPECIMEN Performed By: #### 2 4344-4 ####[facility]ORATORYCLIA [id number] [address] Methemoglobin (Bld) [Mass fraction] 1.0 % Normal 0.0-1.5 [facility] Comment on above: Order Comment: Speci men Type: VENOUS BLOOD SPECIMEN Performed By: #### 2 4344-4 ####[facility]ORATORYCLIA [id number] [address] O2 THERAPY NC = Nasal Cannula Normal [facility] Comment on above: Order Comment: Speci men Type: VENOUS BLOOD SPECIMEN Performed By: #### 2 4344-4 ####[facility]ORATORYCLIA [id number] [place], [place] [address] [place] [address] [place] Oxygen (BldV) [Partial pressure] 42 mm[Hg] Normal 35-45 [facility] Comment on above: Order Comment: Speci men Type: VENOUS BLOOD SPECIMEN Performed By: #### 2 4344-4 ####[facility]ORATORYCLIA [id number] [place], [place] [address] [place] [address] OF [facility] Oxygen adjusted to patient's actual temperature (BldV) [Partial pressure] 43.8 mmHg Normal 35-45 [facility] Comment on above: Order Comment: Speci men Type: VENOUS BLOOD SPECIMEN Performed By: #### 2 4344-4 ####[facility]ORATORYCLIA [id number] [place], [place] [address] [place] [address] Oxygen saturation in Blood 76.7 % Normal 60-85 [facility] Comment on above: Order Comment: Speci men Type: VENOUS BLOOD SPECIMEN Performed By: #### 2 4344-4 ####[facility]ORATORYCLIA [id number] [place], [place] [address] [place] [address] [place] Oxyhemoglobin (BldV) [Mass fraction] 75 % Normal 60-85 [facility] Comment on above: Order Comment: Speci men Type: VENOUS BLOOD SPECIMEN Performed By: #### 2 4344-4 ####[facility]ORATORYCLIA [id number] [place], [place] [address] [place] [address] [place] pH (BldV) 7.42 [pH] Normal 7.32-7.42 [facility] Comment on above: Order Comment: Speci men Type: VENOUS BLOOD SPECIMEN Performed By: #### 2 4344-4 ####[facility]ORATORYCLIA [id number] [place], [place] [address] [place] [address] STATES OF [facility] pH adjusted to patient's actual temperature (BldV) 7.41 Normal 7.32-7.42 [facility] Comment on above: Order Comment: Speci men Type: VENOUS BLOOD SPECIMEN Performed By: #### 2 4344-4 ####[facility]ORATORYCLIA [id number] [place] [address] [place] Potassium [Moles/Vol] 3.5 mmol/L Normal 3.5-5.0 [facility] Comment on above: Order Comment: Speci men Type: VENOUS BLOOD SPECIMEN Performed By: #### 2 4344-4 ####[facility]ATORYCLIA [id number] [place] [address] [place] Sodium [Moles/Vol] 157 mmol/L High 136-144 [facility] Comment on above: Order Comment: Speci men Type: VENOUS BLOOD SPECIMEN Performed By: #### 2 4344-4 ####[facility] LABORATORYCLIA [id number] [place] [address] [place] Magnesium SerPl-mCncon 06-13 Magnesium [Mass/Vol] 3.0 mg/dL High 1.7-2.3 [facility] Comment on above: Order Comment: Speci men Type: BLOOD SPECIMEN Performed By: #### 2 4321-2, , 2776-05 ####[facility]ATORYCLIA [id number] [place] [address] [place] Magnesium [Mass/Vol] 2.2 mg/dL Normal 1.7-2.3 [facility] Comment on above: Order Comment: Speci men Type: BLOOD SPECIMEN Performed By: #### 2 4321-2, 2776-05, ####[facility]ATORYCLIA [id number] [place] [address] [place] Phosphate SerPl-mCncon 06-13 Phosphate [Mass/Vol] 2.2 mg/dL Low 2.7-4.8 [facility] Comment on above: Order Comment: Speci men Type: BLOOD SPECIMEN Performed By: #### 2 4321-2, , 2776-05 ####[facility]ATORYCLIA [id number] [place] [address] [place] Phosphate [Mass/Vol] 1.8 mg/dL Low 2.7-4.8 [facility] Comment on above: Order Comment: Speci men Type: BLOOD SPECIMEN Performed By: #### 2 4321-2, 2777-1, ####[facility] LABORATORYCLIA [id number] [address] STATES [facility] XR CHEST 1V FRONTALon 2021 XR [...] on above: Performed By: #### 6 11-4 ####[facility] LABORATORYCLIA [id number] [place] [address] [place] Basic metabolic 2000 panelon 06-12-2021 Anion gap [Moles/Vol] 6 mmol/L Low 9-18 [facility] Comment on above: Order Comment: Speci men Type: BLOOD SPECIMEN Performed By: #### 2 777-1, , ####[facility] LABORATORYCLIA [id number] [place] [address] [place] Calcium [Mass/Vol] 8.7 mg/dL Normal 8.5-10.2 [facility] Comment on above: Order Comment: Speci men Type: BLOOD SPECIMEN Performed By: #### 2 777-1, 27440-3, ####[facility]ATORYCLIA [id number] [place] [address] [place] Chloride [Moles/Vol] 118 mmol/L High 97-105 [facility] Comment on above: Order Comment: Speci men Type: BLOOD SPECIMEN Performed By: #### 2 777-1, 56173-6, ####[facility]ATORYCLIA [id number] [place] [address] [place] CO2 [Moles/Vol] 28 mmol/L Normal 22-30 [facility] Comment on above: Order Comment: Speci men Type: BLOOD SPECIMEN Performed By: #### 2 777-1, 93135-6, ####[facility] LABORATORYCLIA [id number] [address] [place] Creatinine [Mass/Vol] 0.77 mg/dL Normal 0.73-1.22 [facility] Comment on above: Order Comment: Speci men Type: BLOOD SPECIMEN Performed By: #### 2 777-1, 40666-5, ####[facility] LABORATORYCLIA [id number] [address] STATES [place] GFR/1.73 sq M.predicted [...] actual GFR. Performed By: #### 2 777-1, 89906-5, ####[facility] LABORATORYCLIA [id number] [place] [address] [place] Glucose [Mass/Vol] 116 mg/dL High 74-99 [facility] Comment on above: Order Comment: Speci [facility] Type: BLOOD SPECIMEN Result Comment: The [place] Diabetes Association (ADA) provides guidance for cutoff [...] Standards of Medical Care in Diabetes 2016, [place] Diabetes Association. Diabetes Care. 2016.39(Suppl 1). Performed By: #### 2 777-1, , ####[facility] LABORATORYCLIA [id number] [address] Potassium [Moles/Vol] 4.0 mmol/L Normal 3.7-5.1 [facility] Comment on above: Order Comment: Speci men Type: BLOOD SPECIMEN Performed By: #### 2 777-1, , ####[facility] LABORATORYCLIA [id number] [address] Sodium [Moles/Vol] 152 mmol/L High 136-144 [facility] Comment on above: Order Comment: Speci men Type: BLOOD SPECIMEN Performed By: #### 2 777-1, , ####[facility] LABORATORYCLIA [id number] [address] Urea nitrogen [Mass/Vol] 34 mg/dL High 9-24 [facility] Comment on above: Order Comment: Speci men Type: BLOOD SPECIMEN Performed By: #### 2 777-1, , ####[facility] LABORATORYCLIA [id number] [address] CBC panel Auto (Bld)on 06-12 Erythrocyte distribution width (RBC) [Ratio] 16.1 % High 11.5-15.0 [facility] Comment on above: Order Comment: Speci men Type: BLOOD SPECIMEN Performed By: #### 5 8410-2 ####[facility] LABORATORYCLIA [id number] [address] Hematocrit (Bld) [Volume fraction] 32.8 % Low 39.0-51.0 [facility] Comment on above: Order Comment: Speci men Type: BLOOD SPECIMEN Performed By: #### 5 8410-2 ####[facility] LABORATORYCLIA [id number] [address] Hemoglobin (Bld) [Mass/Vol] 9.9 g/dL Low 13.0-17.0 [facility] Comment on above: Order Comment: Speci men Type: BLOOD SPECIMEN Performed By: #### 5 8410-2 ####[facility]ORATORYCLIA [id number] [address] MCH (RBC) [Entitic mass] 28.4 pg Normal 26.0-34.0 [facility] Comment on above: Order Comment: Speci men Type: BLOOD SPECIMEN Performed By: #### 5 8410-2 ####[facility] LABORATORYCLIA [id number] [address] MCHC (RBC) [Mass/Vol] 30.2 g/dL Low 30.5-36.0 [facility] Comment on above: Order Comment: Speci men Type: BLOOD SPECIMEN Performed By: #### 5 8410-2 ####[facility] LABORATORYCLIA [id number] [address] MCV (RBC) [Entitic vol] 94.3 fL Normal 80.0-100.0 [facility] Comment on above: Order Comment: Speci men Type: BLOOD SPECIMEN Performed By: #### 5 8410-2 ####[facility] LABORATORYCLIA [id number] [address] Nucleated RBC (Bld) [#/Vol] 10*3/uL Normal <0.01 [facility] Comment on above: Order Comment: Speci men Type: BLOOD SPECIMEN Performed By: #### 5 8410-2 ####[facility] LABORATORYCLIA [id number] [place] [address] [place] Platelet mean volume (Bld) [Entitic vol] 11.2 fL Normal 9.0-12.7 [facility] Comment on above: Order Comment: Speci men Type: BLOOD SPECIMEN Performed By: #### 5 8410-2 ####[facility] LABORATORYCLIA [id number] [address] STATES OF [facility] Platelets (Bld) [#/Vol] 218 10*3/uL Normal 150-400 [facility] Comment on above: Order Comment: Speci men Type: BLOOD SPECIMEN Performed By: #### 5 8410-2 ####[facility] LABORATORYCLIA [id number] [address] STATES OF [facility] RBC (Bld) [#/Vol] 3.48 10*6/uL Low 4.20-6.00 [facility] Comment on above: Order Comment: Speci men Type: BLOOD SPECIMEN Performed By: #### 5 8410-2 ####[facility] LABORATORYCLIA [id number] [address] WBC (Bld) [#/Vol] 13.33 10*3/uL High 3.70-11.00 [facility] Comment on above: Order Comment: Speci men Type: BLOOD SPECIMEN Performed By: #### 5 8410-2 ####[facility] LABORATORYCLIA [id number] [address] CONSULT PROGon 06-12-2021 CONSULT PROG Normal [...] BLOOD SPECIMEN Performed By: #### 2 777-1, 33920-8, 18462-4 ####[facility] LABORATORYCLIA [id number] [place] [address] [place] PT panel Coag (PPP)on 2021 INR Coag (PPP) [Relative time] 1.1 {INR} Normal 0.9-1.3 [facility] Comment on above: Order Comment: Speci men Type: BLOOD SPECIMEN Result Comment: Yris min K Antagonist (VKA) Therapeutic Range: INR 2 to 3 (Target INR of 2.5)Note: For patients treated with VKA drugs, such as warfarin, the [employer] 2012 Guideline recommends [...] al. Chest 2012, 141:7S-47SNishimpatricia RA, et al. JAC 2017, 70: 252-289 Performed By: #### 3 4528-0 ####[facility] LABORATORYCLIA [id number] [place] [address] [place] PT Coag (PPP) [Time] 11.9 s Normal 9.7-13.0 [facility] Comment on above: Order Comment: Speci men Type: BLOOD SPECIMEN Performed By: #### 3 4528-0 ####[facility] LABORATORYCLIA [id number] [place] [id number] [place] Phosphate SerPl-mCncon 06-12 Phosphate [Mass/Vol] 2.2 mg/dL Low 2.7-4.8 [facility] Comment on above: Order Comment: Speci men Type: BLOOD SPECIMEN Performed By: #### 2 777-1, 49543-6, 71004-8 ####[facility]ORATORYCLIA [id number] [place] [address] [place] XR ABDOMEN 1V SUPINEon 06-12 XR ABDOMEN 1V SUPINE Normal [facility] ALLIED HEALTHon 06-11-2021 ALLIED HEALTH Normal [facility] Bacteria Bld Culton 06-11-19 22 Bacteria identified Cx Nom (Bld) CULTURE, BLOOD: No growth 5 days Normal [facility] Comment on above: Performed By: #### 6 00-7 ####[facility]ORATORYCLIA [id number] [address] Bacteria identified Cx Nom (Bld) CULTURE, BLOOD: No growth 5 days Normal [facility] Comment on above: Performed By: #### 6 00-7 ####[facility] LABORATORYCLIA [id number] [address] [place] Bacteria Ur Culton 2 Bacteria identified Cx Nom (U) CULTURE, URINE: No growth (<1,000 CFU/ml) Normal [facility] Comment on above: Performed By: #### 6 30-4 ####[facility]ORATORYCLIA [id number] [place] [address] [place] Basic metabolic 2000 panelon 06-11-2021 Anion gap [Moles/Vol] 9 mmol/L Normal 9-18 [facility] Comment on above: Order Comment: Speci men Type: BLOOD SPECIMEN Performed By: #### 1 9123-9, 2777-1, 39504-0 ####[facility]ORATORYCLIA [id number] [address] [place] Calcium [Mass/Vol] 8.5 mg/dL Normal 8.5-10.2 [facility] Comment on above: Order Comment: Speci men Type: BLOOD SPECIMEN Performed By: #### 1 9123-9, 2777-1, 86914-0 ####[facility]ORATORYCLIA [id number] [address] [place] Chloride [Moles/Vol] 118 mmol/L High 97-105 [facility] Comment on above: Order Comment: Speci men Type: BLOOD SPECIMEN Performed By: #### 1 9123-9, 2777, ####[facility]ORATORYCLIA [id number] [address] STATES [facility] CO2 [Moles/Vol] 27 mmol/L Normal 22-30 [facility] Comment on above: Order Comment: Speci men Type: BLOOD SPECIMEN Performed By: #### 1 9123-9, 27711-04, 99921-3 ####[facility]ORATORYCLIA [id number] [address] [place] Creatinine [Mass/Vol] 0.75 mg/dL Normal 0.73-1.22 [facility] Comment on above: Order Comment: Speci men Type: BLOOD SPECIMEN Performed By: #### 1 9123-9, 2776-05, ####[facility]ORATORYCLIA [id number] [address] [place] GFR/1.73 sq M.predicted [...] GFR. Performed By: #### 1 9123-9, 2777, 92099-6 ####[facility]ORATORYCLIA [id number] [address] [place] Glucose [Mass/Vol] 142 mg/dL High 74-99 [facility] Comment on above: Order Comment: Speci men Type: BLOOD SPECIMEN Result Comment: The [place] Diabetes [employer] (ADA) provides guidance for cutoff [...] Standards of Medical Care in Diabetes 2016, [place] [employer]. Diabetes Care. 2016.39(Suppl 1). Performed By: #### 1 9123-9, 27711-04, 06859-6 ####[facility]ORATORYCLIA [id number] [place] [address] [place] [facility] Potassium [Moles/Vol] 3.6 mmol/L Low 3.7-5.1 [facility] Comment on above: Order Comment: Speci men Type: BLOOD SPECIMEN Performed By: #### 1 9123-9, 2776-05, 71441-0 ####[facility]ORATORYCLIA [id number] [address] STATES [facility] Sodium [Moles/Vol] 154 mmol/L High 136-144 [facility] Comment on above: Order Comment: Speci men Type: BLOOD SPECIMEN Performed By: #### 1 9123-9, 2776-05, 18982-7 ####[facility]ORATORYCLIA [id number] [place] [address] [place] Urea nitrogen [Mass/Vol] 31 mg/dL High 9-24 [facility] Comment on above: Order Comment: Speci men Type: BLOOD SPECIMEN Performed By: #### 1 9123-9, 27711-04, 62402-2 ####[facility]ORATORYCLIA [id number] [place] [address] [place] C diff Tox gens Stl Ql MEGAN+p sammemary ann 06-11-2021 C. difficile toxin genes MEGAN+probe Ql (Stl) Negative Normal Negative for C. difficile toxin by PCR [facility] Comment on above: Order Comment: Speci men Type: STOOL SPECIMEN Performed By: #### 5 4067-4 ####[facility]ORATORYCLIA [id number] [address] CBC W Auto Differential pane l (Bld)on 06-11-2021 Basophils (Bld) [#/Vol] 0.03 10*3/uL Normal <0.11 [facility] Comment on above: Order Comment: Speci men Type: BLOOD SPECIMEN Performed By: #### 5 7021-8 ####[facility]ORATORYCLIA [id number] [address] Basophils/100 WBC (Bld) 0.2 % Normal [facility] Comment on above: Order Comment: Speci men Type: BLOOD SPECIMEN Performed By: #### 5 7021-8 ####[facility]ORATORYCLIA [id number] [address] Differential cell count method Nom (Bld) Auto Normal [facility] Comment on above: Order Comment: Speci men Type: BLOOD SPECIMEN Performed By: #### 5 7021-8 ####[facility]ORATORYCLIA [id number] [address] STATES OF [facility] Eosinophils (Bld) [#/Vol] 0.19 10*3/uL Normal <0.46 [facility] Comment on above: Order Comment: Speci men Type: BLOOD SPECIMEN Performed By: #### 5 7021-8 ####[facility] LABORATORYCLIA [id number] [address] Eosinophils/100 WBC (Bld) 1.5 % Normal [facility] Comment on above: Order Comment: Speci men Type: BLOOD SPECIMEN Performed By: #### 5 7021-8 ####[facility]ORATORYCLIA [id number] [address] Erythrocyte distribution width (RBC) [Ratio] 16.3 % High 11.5-15.0 [facility] Comment on above: Order Comment: Speci men Type: BLOOD SPECIMEN Performed By: #### 5 7021-8 ####[facility]ORATORYCLIA [id number] [address] Hematocrit (Bld) [Volume fraction] 32.1 % Low 39.0-51.0 [facility] Comment on above: Order Comment: Speci men Type: BLOOD SPECIMEN Performed By: #### 5 7021-8 ####[facility]ORATORYCLIA [id number] [address] Hemoglobin (Bld) [Mass/Vol] 9.3 g/dL Low 13.0-17.0 [facility] Comment on above: Order Comment: Speci men Type: BLOOD SPECIMEN Performed By: #### 5 7021-8 ####[facility]ORATORYCLIA [id number] [address] IMMATURE GRAN % 0.6 % Normal [facility] Comment on above: Order Comment: Speci men Type: BLOOD SPECIMEN Performed By: #### 5 7021-8 ####[facility] LABORATORYCLIA [id number] [address] IMMATURE GRAN ABS 0.08 k/uL Normal <0.10 [facility] Comment on above: Order Comment: Speci men Type: BLOOD SPECIMEN Performed By: #### 5 7021-8 ####[facility]ORATORYCLIA [id number] [address] Lymphocytes (Bld) [#/Vol] 1.65 10*3/uL Normal 1.00-4.00 [facility] Comment on above: Order Comment: Speci men Type: BLOOD SPECIMEN Performed By: #### 5 7021-8 ####[facility]ATORYCLIA [id number] [address] Lymphocytes/100 WBC (Bld) 12.8 % Normal [facility] Comment on above: Order Comment: Speci men Type: BLOOD SPECIMEN Performed By: #### 5 7021-8 ####[facility]ORATORYCLIA [id number] [address] MCH (RBC) [Entitic mass] 27.2 pg Normal 26.0-34.0 [facility] Comment on above: Order Comment: Speci men Type: BLOOD SPECIMEN Performed By: #### 5 7021-8 ####[facility]ORATORYCLIA [id number] [address] MCHC (RBC) [Mass/Vol] 29.0 g/dL Low 30.5-36.0 [facility] Comment on above: Order Comment: Speci men Type: BLOOD SPECIMEN Performed By: #### 5 7021-8 ####[facility]ORATORYCLIA [id number] [address] MCV (RBC) [Entitic vol] 93.9 fL Normal 80.0-100.0 [facility] Comment on above: Order Comment: Speci men Type: BLOOD SPECIMEN Performed By: #### 5 7021-8 ####[facility]ORATORYCLIA [id number] [address] Monocytes (Bld) [#/Vol] 0.68 10*3/uL Normal <0.87 [facility] Comment on above: Order Comment: Speci men Type: BLOOD SPECIMEN Performed By: #### 5 7021-8 ####[facility]ORATORYCLIA [id number] [address] Monocytes/100 WBC (Bld) 5.3 % Normal [facility] Comment on above: Order Comment: Speci men Type: BLOOD SPECIMEN Performed By: #### 5 7021-8 ####[facility]ORATORYCLIA [id number] [address] Neutrophils (Bld) [#/Vol] 10.22 10*3/uL High 1.45-7.50 [facility] Comment on above: Order Comment: Speci men Type: BLOOD SPECIMEN Performed By: #### 5 7021-8 ####[facility]ORATORYCLIA [id number] [address] Neutrophils/100 WBC (Bld) 79.6 % Normal [facility] Comment on above: Order Comment: Speci men Type: BLOOD SPECIMEN Performed By: #### 5 7021-8 ####[facility]ORATORYCLIA [id number] [address] Nucleated RBC (Bld) [#/Vol] 10*3/uL Normal <0.01 [facility] Comment on above: Order Comment: Speci men Type: BLOOD SPECIMEN Performed By: #### 5 7021-8 ####[facility]ORATORYCLIA [id number] [address] Nucleated RBC/100 WBC (Bld) [Ratio] 0.0 /100 WBC Normal 0.0 [facility] Comment on above: Order Comment: Speci men Type: BLOOD SPECIMEN Performed By: #### 5 7021-8 ####[facility]ORATORYCLIA [id number] [address] Platelet mean volume (Bld) [Entitic vol] 11.1 fL Normal 9.0-12.7 [facility] Comment on above: Order Comment: Speci men Type: BLOOD SPECIMEN Performed By: #### 5 7021-8 ####[facility]ORATORYCLIA [id number] [address] Platelets (Bld) [#/Vol] 188 10*3/uL Normal 150-400 [facility] Comment on above: Order Comment: Speci men Type: BLOOD SPECIMEN Performed By: #### 5 7021-8 ####[facility]ATORYCLIA [id number] [address] RBC (Bld) [#/Vol] 3.42 10*6/uL Low 4.20-6.00 [facility] Comment on above: Order Comment: Speci men Type: BLOOD SPECIMEN Performed By: #### 5 7021-8 ####[facility]ORATORYCLIA [id number] [address] WBC (Bld) [#/Vol] 12.85 10*3/uL High 3.70-11.00 [facility] Comment on above: Order Comment: Speci men Type: BLOOD SPECIMEN Performed By: #### 5 7021-8 ####[facility]ORATORYCLIA [id number] [address] CBC panel Auto (Bld)on 06-11 Erythrocyte distribution width (RBC) [Ratio] 16.2 % High 11.5-15.0 [facility] Comment on above: Order Comment: Speci men Type: BLOOD SPECIMEN Performed By: #### 5 8410-2 ####[facility]ORATORYCLIA [id number] [address] Hematocrit (Bld) [Volume fraction] 34.5 % Low 39.0-51.0 [facility] Comment on above: Order Comment: Speci men Type: BLOOD SPECIMEN Performed By: #### 5 8410-2 ####[facility]ORATORYCLIA [id number] [address] Hemoglobin (Bld) [Mass/Vol] 10.3 g/dL Low 13.0-17.0 [facility] Comment on above: Order Comment: Speci men Type: BLOOD SPECIMEN Performed By: #### 5 8410-2 ####[facility]ORATORYCLIA [id number] [address] MCH (RBC) [Entitic mass] 28.1 pg Normal 26.0-34.0 [facility] Comment on above: Order Comment: Speci men Type: BLOOD SPECIMEN Performed By: #### 5 8410-2 ####[facility]ORATORYCLIA [id number] [address] MCHC (RBC) [Mass/Vol] 29.9 g/dL Low 30.5-36.0 [facility] Comment on above: Order Comment: Speci men Type: BLOOD SPECIMEN Performed By: #### 5 8410-2 ####[facility]ORATORYCLIA [id number] [address] MCV (RBC) [Entitic vol] 94.3 fL Normal 80.0-100.0 [facility] Comment on above: Order Comment: Speci men Type: BLOOD SPECIMEN Performed By: #### 5 8410-2 ####[facility]ORATORYCLIA [id number] [address] Nucleated RBC (Bld) [#/Vol] 10*3/uL Normal <0.01 [facility] Comment on above: Order Comment: Speci men Type: BLOOD SPECIMEN Performed By: #### 5 8410-2 ####[facility]ORATORYCLIA [id number] [address] Platelet mean volume (Bld) [Entitic vol] 10.9 fL Normal 9.0-12.7 [facility] Comment on above: Order Comment: Speci men Type: BLOOD SPECIMEN Performed By: #### 5 8410-2 ####[facility]ORATORYCLIA [id number] [address] Platelets (Bld) [#/Vol] 210 10*3/uL Normal 150-400 [facility] Comment on above: Order Comment: Speci men Type: BLOOD SPECIMEN Performed By: #### 5 8410-2 ####[facility] LABORATORYCLIA [id number] [address] OF [facility] RBC (Bld) [#/Vol] 3.66 10*6/uL Low 4.20-6.00 [facility] Comment on above: Order Comment: Speci men Type: BLOOD SPECIMEN Performed By: #### 5 8410-2 ####[facility]ORATORYCLIA [id number] [address] WBC (Bld) [#/Vol] 13.03 10*3/uL High 3.70-11.00 [facility] Comment on above: Order Comment: Speci men Type: BLOOD SPECIMEN Performed By: #### 5 8410-2 ####[facility]ATORYCLIA [id number] [address] OF [facility] CONSULT PROGon 06-11-2021 CONSULT PROG Normal [facility] [...] SPECIMEN Performed By: #### 1 9123-9, 2777-, ####[facility]ATORYCLIA [id number] [address] [place] Phosphate SerPl-mCncon 06-11 Phosphate [Mass/Vol] 2.5 mg/dL Low 2.7-4.8 [facility] Comment on above: Order Comment: Speci men Type: BLOOD SPECIMEN Performed By: #### 1 9123-9, 2776-05, ####[facility]ATORYCLIA [id number] [address] [place] Basic metabolic 2000 panelon 06-10-2021 Anion gap [Moles/Vol] 7 mmol/L Low 9-18 [facility] Comment on above: Order Comment: Speci men Type: BLOOD SPECIMEN Performed By: #### 2 777-1, 30635-9, , [facility] ####[facility]ATORYCLIA [id number] [address] [place] Calcium [Mass/Vol] 8.5 mg/dL Normal 8.5-10.2 [facility] Comment on above: Order Comment: Speci men Type: BLOOD SPECIMEN Performed By: #### 2 777-1, 94391-2, , HFP ####[facility]ORATORYCLIA [id number] [address] OF [facility] Chloride [Moles/Vol] 118 mmol/L High 97-105 [facility] Comment on above: Order Comment: Speci men Type: BLOOD SPECIMEN Performed By: #### 2 777-1, 80407-5, , HFP ####[facility]ORATORYCLIA [id number] [address] CO2 [Moles/Vol] 26 mmol/L Normal 22-30 [facility] Comment on above: Order Comment: Speci men Type: BLOOD SPECIMEN Performed By: #### 2 777-1, 78418-6, , HFP ####[facility]ORATORYCLIA [id number] [address] Creatinine [Mass/Vol] 0.70 mg/dL Low 0.73-1.22 [facility] Comment on above: Order Comment: Speci men Type: BLOOD SPECIMEN Performed By: #### 2 777-1, , , [facility] ####[facility] LABORATORYCLIA [id number] [address] [place] GFR/1.73 sq M.predicted MDRD (S/P/Bld) [...] actual GFR. Performed By: #### 2 777-1, 84901-1, , HFP ####[facility] LABORATORYCLIA [id number] [place] [address] [place] Glucose [Mass/Vol] 135 mg/dL High 74-99 [facility] Comment on above: Order Comment: Speci men Type: BLOOD SPECIMEN Result Comment: The [place] Diabetes Association (ADA) provides guidance for cutoff [...] Standards of Medical Care in Diabetes 2016, [place] Diabetes Association. Diabetes Care. 2016.39(Suppl 1). Performed By: #### 2 777-1, 95429-5, , [facility] ####[facility] LABORATORYCLIA [id number] [address] [place] Potassium [Moles/Vol] 3.9 mmol/L Normal 3.7-5.1 [facility] Comment on above: Order Comment: Speci men Type: BLOOD SPECIMEN Performed By: #### 2 777-1, , , [facility] ####[facility] LABORATORYCLIA [id number] [address] [place] Sodium [Moles/Vol] 151 mmol/L High 136-144 [facility] Comment on above: Order Comment: Speci men Type: BLOOD SPECIMEN Performed By: #### 2 777-1, 57908-3, , HFP ####[facility]ORATORYCLIA [id number] [place] [address] [place] Urea nitrogen [Mass/Vol] 27 mg/dL High 9-24 [facility] Comment on above: Order Comment: Speci men Type: BLOOD SPECIMEN Performed By: #### 2 777-1, 38099-0, , HFP ####[facility]ORATORYCLIA [id number] [address] CASE MANAGEMon 06-10-2021 CASE MANAGEM Normal [facility] CBC panel Auto (Bld)on 06-10 Erythrocyte distribution width (RBC) [Ratio] 16.2 % High 11.5-15.0 [facility] Comment on above: Order Comment: Speci men Type: BLOOD SPECIMEN Performed By: #### 5 8410-2 ####[facility]ORATORYCLIA [id number] [address] Hematocrit (Bld) [Volume fraction] 34.8 % Low 39.0-51.0 [facility] Comment on above: Order Comment: Speci men Type: BLOOD SPECIMEN Performed By: #### 5 8410-2 ####[facility]ORATORYCLIA [id number] [address] Hemoglobin (Bld) [Mass/Vol] 10.2 g/dL Low 13.0-17.0 [facility] Comment on above: Order Comment: Speci men Type: BLOOD SPECIMEN Performed By: #### 5 8410-2 ####[facility]ORATORYCLIA [id number] [address] MCH (RBC) [Entitic mass] 27.1 pg Normal 26.0-34.0 [facility] Comment on above: Order Comment: Speci men Type: BLOOD SPECIMEN Performed By: #### 5 8410-2 ####[facility]ORATORYCLIA [id number] [address] MCHC (RBC) [Mass/Vol] 29.3 g/dL Low 30.5-36.0 [facility] Comment on above: Order Comment: Speci men Type: BLOOD SPECIMEN Performed By: #### 5 8410-2 ####[facility]ORATORYCLIA [id number] [address] MCV (RBC) [Entitic vol] 92.6 fL Normal 80.0-100.0 [facility] Comment on above: Order Comment: Speci men Type: BLOOD SPECIMEN Performed By: #### 5 8410-2 ####[facility]ORATORYCLIA [id number] [address] Nucleated RBC (Bld) [#/Vol] 10*3/uL Normal <0.01 [facility] Comment on above: Order Comment: Speci men Type: BLOOD SPECIMEN Performed By: #### 5 8410-2 ####[facility]ORATORYCLIA [id number] [address] Platelet mean volume (Bld) [Entitic vol] 10.4 fL Normal 9.0-12.7 [facility] Comment on above: Order Comment: Speci men Type: BLOOD SPECIMEN Performed By: #### 5 8410-2 ####[facility]ATORYCLIA [id number] [address] Platelets (Bld) [#/Vol] 206 10*3/uL Normal 150-400 [facility] Comment on above: Order Comment: Speci men Type: BLOOD SPECIMEN Performed By: #### 5 8410-2 ####[facility]ORATORYCLIA [id number] [address] RBC (Bld) [#/Vol] 3.76 10*6/uL Low 4.20-6.00 [facility] Comment on above: Order Comment: Speci men Type: BLOOD SPECIMEN Performed By: #### 5 8410-2 ####[facility]ATORYCLIA [id number] [address] WBC (Bld) [#/Vol] 11.36 10*3/uL High 3.70-11.00 [facility] Comment on above: Order Comment: Speci men Type: BLOOD SPECIMEN Performed By: #### 5 8410-2 ####[facility]ORATORYCLIA [id number] [address] HEPATIC FUNCTION PNLon 06-10 Albumin [Mass/Vol] 3.1 g/dL Low 3.9-4.9 [facility] Comment on above: Order Comment: Speci men Type: BLOOD SPECIMEN Performed By: #### 2 777-1, 56366-2, , HFP ####[facility]ORYCLIA [id number] [address] ALP [Catalytic activity/Vol] 73 U/L Normal 38-113 [facility] Comment on above: Order Comment: Speci men Type: BLOOD SPECIMEN Performed By: #### 2 777-1, , , HFP ####[facility]ATORYCLIA [id number] [address] ALT With P-5'-P [Catalytic activity/Vol] 64 U/L High 10-54 [facility] Comment on above: Order Comment: Speci men Type: BLOOD SPECIMEN Performed By: #### 2 777-1, , , HFP ####[facility]ORYCLIA [id number] [address] AST With P-5'-P [Catalytic activity/Vol] 44 U/L High 14-40 [facility] Comment on above: Order Comment: Speci men Type: BLOOD SPECIMEN Performed By: #### 2 777-1, , , HFP ####[facility]ATORYCLIA [id number] [address] Bilirubin [Mass/Vol] 0.5 mg/dL Normal 0.2-1.3 [facility] Comment on above: Order Comment: Speci men Type: BLOOD SPECIMEN Performed By: #### 2 777-1, 06640-4, , HFP ####[facility]ATORYCLIA [id number] [address] Bilirubin.conjugated [Mass/Vol] mg/dL Normal <0.2 [facility] Comment on above: Order Comment: Speci men Type: BLOOD SPECIMEN Performed By: #### 2 777-1, 22700-3, , [facility] ####[facility] LABORATORYCLIA [id number] [place] [address] [place] Protein [Mass/Vol] 5.7 g/dL Low 6.3-8.0 [facility] Comment on above: Order Comment: Speci men Type: BLOOD SPECIMEN Performed By: #### 2 777-1, 54367-2, , [facility] ####[facility] LABORATORYCLIA [id number] [place] [address] [place] LEVETIRACETAMon 06-10-2021 levETIRAcetam [Mass/Vol] [...] developed and its performance characteristics determined by [facility]'s [facility] Pathology and Laboratory Medicine [place]ie ( [facility]). It has not been cleared or approved by the FDA. [facility] is regulated under CLIA as qualified to perform high complexity testing. This test is used for clinical purposes. It should not be regarded as investigational or for research. Performed By: #### L EVET ####[facility] LABCLIA [id number] [id number] [address] [place] Magnesium SerPl-mCncon 06-10 Magnesium [Mass/Vol] 2.7 mg/dL High 1.7-2.3 [facility] Comment on above: Order Comment: Speci men Type: BLOOD SPECIMEN Performed By: #### 2 777-1, 88970-0, , [facility] ####[facility] LABORATORYCLIA [id number] [place] [address] [place] Phosphate SerPl-mCncon 06-10 Phosphate [Mass/Vol] 1.8 mg/dL Low 2.7-4.8 [facility] Comment on above: Order Comment: Speci men Type: BLOOD SPECIMEN Performed By: #### 2 777-1, 68967-6, , [facility] ####[facility] LABORATORYCLIA [id number] [place] [address] [place] ALLIED HEALTHon 06-09-2021 [...] SPECIMEN Performed By: #### 2 4321-2, 277-, ####[facility] LABORATORYCLIA [id number] [place] [address] [place] Calcium [Mass/Vol] 8.3 mg/dL Low 8.5-10.2 [facility] Comment on above: Order Comment: Speci men Type: BLOOD SPECIMEN Performed By: #### 2 4321-2, 2776-05, ####[facility] LABORATORYCLIA [id number] [place] [address] [place] Chloride [Moles/Vol] 116 mmol/L High 97-105 [facility] Comment on above: Order Comment: Speci men Type: BLOOD SPECIMEN Performed By: #### 2 4321-2, 2776-, ####[facility]ORY[facility]IA [id number] [place] [address] [place] CO2 [Moles/Vol] 27 mmol/L Normal 22-30 [facility] Comment on above: Order Comment: Speci men Type: BLOOD SPECIMEN Performed By: #### 2 4321-2, 2776-, ####[facility] LABORATORYCLIA [id number] [place] [address] [place] Creatinine [Mass/Vol] 0.70 mg/dL Low 0.73-1.22 [facility] Comment on above: Order Comment: Speci men Type: BLOOD SPECIMEN Performed By: #### 2 4321-2, 2777-1, ####[facility] LABORATORYCLIA [id number] [place] [address] [place] GFR/1.73 sq M.predicted [...] GFR. Performed By: #### 2 4321-2, 2777-, ####[facility]ITAL[facility] [id number] [place] [address] [place] Glucose [Mass/Vol] 123 mg/dL High 74-99 [facility] Comment on above: Order Comment: Spec men Type: BLOOD SPECIMEN Result Comment: The [place] Diabetes Association (ADA) provides guidance for cutoff [...] Standards of Medical Care in Diabetes 2016, [place] Diabetes Association. Diabetes Care. 2016.39(Suppl 1). Performed By: #### 2 4321-2, 2776-, ####[facility] LABORATORYCLIA [id number] [address] Potassium [Moles/Vol] 3.5 mmol/L Low 3.7-5.1 [facility] Comment on above: Order Comment: Speci men Type: BLOOD SPECIMEN Performed By: #### 2 4321-2, 2776-05, ####[facility] LABORATORYCLIA [id number] [address] Sodium [Moles/Vol] 151 mmol/L High 136-144 [facility] Comment on above: Order Comment: Speci men Type: BLOOD SPECIMEN Performed By: #### 2 4321-2, 2776-05, ####[facility] LABORATORYCLIA [id number] [address] Urea nitrogen [Mass/Vol] 39 mg/dL High 9-24 [facility] Comment on above: Order Comment: Speci men Type: BLOOD SPECIMEN Performed By: #### 2 4321-2, 2776-05, ####[facility] LABORATORYCLIA [id number] [address] CBC panel Auto (Bld)on 06-09 Erythrocyte distribution width (RBC) [Ratio] 16.2 % High 11.5-15.0 [facility] Comment on above: Order Comment: Speci men Type: BLOOD SPECIMEN Performed By: #### 5 8410-2 ####[facility] LABORATORYCLIA [id number] [address] Hematocrit (Bld) [Volume fraction] 33.7 % Low 39.0-51.0 [facility] Comment on above: Order Comment: Speci men Type: BLOOD SPECIMEN Performed By: #### 5 8410-2 ####[facility] LABORATORYCLIA [id number] [address] Hemoglobin (Bld) [Mass/Vol] 10.2 g/dL Low 13.0-17.0 [facility] Comment on above: Order Comment: Speci men Type: BLOOD SPECIMEN Performed By: #### 5 8410-2 ####[facility] LABORATORYCLIA [id number] [address] MCH (RBC) [Entitic mass] 27.4 pg Normal 26.0-34.0 [facility] Comment on above: Order Comment: Speci men Type: BLOOD SPECIMEN Performed By: #### 5 8410-2 ####[facility] LABORATORYCLIA [id number] [address] MCHC (RBC) [Mass/Vol] 30.3 g/dL Low 30.5-36.0 [facility] Comment on above: Order Comment: Speci men Type: BLOOD SPECIMEN Performed By: #### 5 8410-2 ####[facility] LABORATORYCLIA [id number] [address] MCV (RBC) [Entitic vol] 90.6 fL Normal 80.0-100.0 [facility] Comment on above: Order Comment: Speci men Type: BLOOD SPECIMEN Performed By: #### 5 8410-2 ####[facility] LABORATORYCLIA [id number] [address] Nucleated RBC (Bld) [#/Vol] 10*3/uL Normal <0.01 [facility] Comment on above: Order Comment: Speci men Type: BLOOD SPECIMEN Performed By: #### 5 8410-2 ####[facility] LABORATORYCLIA [id number] [address] Platelet mean volume (Bld) [Entitic vol] 10.3 fL Normal 9.0-12.7 [facility] Comment on above: Order Comment: Speci men Type: BLOOD SPECIMEN Performed By: #### 5 8410-2 ####[facility]ATORYCLIA [id number] [address] STATES OF [facility] Platelets (Bld) [#/Vol] 219 10*3/uL Normal 150-400 [facility] Comment on above: Order Comment: Speci men Type: BLOOD SPECIMEN Performed By: #### 5 8410-2 ####[facility] LABORATORYCLIA [id number] [address] STATES [place] [facility] RBC (Bld) [#/Vol] 3.72 10*6/uL Low 4.20-6.00 [facility] Comment on above: Order Comment: Speci men Type: BLOOD SPECIMEN Performed By: #### 5 8410-2 ####[facility] LABORATORYCLIA [id number] [address] OF [facility] WBC (Bld) [#/Vol] 13.02 10*3/uL High 3.70-11.00 [facility] Comment on above: Order Comment: Speci men Type: BLOOD SPECIMEN Performed By: #### 5 8410-2 ####[facility] LABORATORYCLIA [id number] [address] CONSULT PROGon 06-09-2021 CONSULT PROG Normal [facility] CONSULT PROG Normal [facility] CT BRAIN WO IVCONon 06-09-19 CT BRAIN WO IVCON Normal [facility] Magnesium SerPl-mCncon 06-09 Magnesium [Mass/Vol] 2.8 mg/dL High 1.7-2.3 [facility] Comment on above: Order Comment: Speci men Type: BLOOD SPECIMEN Performed By: #### 2 4321-2, 2777-1, 87900-2 ####[facility] LABORATORYCLIA [id number] [address] NURSING PROGon 06-09-2021 NURSING PROG Normal [facility] NUTRITIONon 06-09-2021 NUTRITION Normal [facility] PT EDon 06-09-2021 PT ED Normal [facility] Phosphate SerPl-mCncon 06-09 Phosphate [Mass/Vol] 2.2 mg/dL Low 2.7-4.8 [facility] Comment on above: Order Comment: Speci men Type: BLOOD SPECIMEN Performed By: #### 2 4321-2, 2777-1, 82960-4 ####[facility] LABORATORYCLIA [id number] [address] Vancomycin random [Mass/Vol] on 06-09-2021 Vancomycin [...] By: #### 4 091-5 ####[facility] LABORATORYCLIA [id number] [address] XR ABD 2V SUPINE W UPR/DECUB [...] 1 Rare Staphylococcus saccharolyticus Identification performed by [facility] [employer] See scanned document for susceptibility report Normal [facility] Comment on above: Performed By: #### 6 462-6, 635-3 ####[facility] LABORATORYCLIA [id number] [place], [place] [address] [place] [address] STATES [facility] Bacteria Wnd Culton 06-08-19 22 Bacteria identified Cx Nom (Wound) CULTURE, INTRAOPERATIVE HARDWARE: No growth 5 days GRAM STAIN: Not performed on specimen type Normal [facility] Comment on above: Performed By: #### 6 462-6, 635-3 ####[facility] LABORATORYCLIA [id number] [place], [place] [address] [place] [address] [place] Basic metabolic 2000 panelon 06-08-2021 Anion gap [Moles/Vol] 9 mmol/L Normal 9-18 [facility] Comment on above: Order Comment: Speci men Type: BLOOD SPECIMEN Performed By: #### 2 4321-2, 2776-05, ####[facility]ORATORYCLIA [id number] [address] [place] Calcium [Mass/Vol] 8.7 mg/dL Normal 8.5-10.2 [facility] Comment on above: Order Comment: Speci men Type: BLOOD SPECIMEN Performed By: #### 2 4321-2, 2776-05, ####[facility]ORATORYCLIA [id number] [place], [place] [address] [place] [address] [place] Chloride [Moles/Vol] 113 mmol/L High 97-105 [facility] Comment on above: Order Comment: Speci men Type: BLOOD SPECIMEN Performed By: #### 2 4321-2, 2776-05, ####[facility] LABORATORYCLIA [id number] [place] [address] [place] CO2 [Moles/Vol] 26 mmol/L Normal 22-30 [facility] Comment on above: Order Comment: Speci men Type: BLOOD SPECIMEN Performed By: #### 2 4321-2, 2776-05, ####[facility]ORYCLIA [id number] [place] [address] [place] Creatinine [Mass/Vol] 0.68 mg/dL Low 0.73-1.22 [facility] Comment on above: Order Comment: [facility] Type: BLOOD SPECIMEN Performed By: #### 2 4321-2, 2777-, ####[facility] LABORATORYCLIA [id number] [place] [address] [place] GFR/1.73 sq M.predicted MDRD (S/P/Bld) [Vol rate/Area] mL/min/{1.73_m2} Normal [facility] Comment on above: Order Comment: [facility] Type: BLOOD SPECIMEN Result Comment: >60e [...] #### 2 4321-2, 2777-, ####[facility] LABORATORYCLIA [id number] [place] [id number] [place] Glucose [Mass/Vol] 146 mg/dL High 74-99 [facility] Comment on above: Order Comment: [facility] Type: BLOOD SPECIMEN Result Comment: The [place] Diabetes Association (ADA) provides guidance for cutoff [...] Standards of Medical Care in Diabetes 2016, [place] Diabetes Association. Diabetes Care. 2016.39(Suppl 1). Performed By: #### 2 4321-2, 7-1, ####[facility]ORYCLIA [id number] [address] Potassium [Moles/Vol] 3.6 mmol/L Low 3.7-5.1 [facility] Comment on above: Order Comment: Speci men Type: BLOOD SPECIMEN Performed By: #### 2 4321-2, 2776-, ####[facility]ORYCLIA [id number] [place], [place] [address] [place] [address] [place] [facility] Sodium [Moles/Vol] 148 mmol/L High 136-144 [facility] Comment on above: Order Comment: Speci men Type: BLOOD SPECIMEN Performed By: #### 2 4321-2, 2776-, ####[facility] LABORATORYCLIA [id number] [address] Urea nitrogen [Mass/Vol] 36 mg/dL High 9-24 [facility] Comment on above: Order Comment: Speci men Type: BLOOD SPECIMEN Performed By: #### 2 4321-2, 2776-05, ####[facility] LABORATORYCLIA [id number] [address] CASE MANAGEMon 06-08-2021 CASE MANAGEM Normal [facility] CBC panel Auto (Bld)on 06-08 Erythrocyte distribution width (RBC) [Ratio] 16.0 % High 11.5-15.0 [facility] Comment on above: Order Comment: Speci men Type: BLOOD SPECIMEN Performed By: #### 5 8410-2 ####[facility]ORYCLIA [id number] [address] Hematocrit (Bld) [Volume fraction] 38.4 % Low 39.0-51.0 [facility] Comment on above: Order Comment: Speci men Type: BLOOD SPECIMEN Performed By: #### 5 8410-2 ####[facility] LABORATORYCLIA [id number] [address] Hemoglobin (Bld) [Mass/Vol] 12.1 g/dL Low 13.0-17.0 [facility] Comment on above: Order Comment: Speci men Type: BLOOD SPECIMEN Performed By: #### 5 8410-2 ####[facility] LABORATORYCLIA [id number] [address] MCH (RBC) [Entitic mass] 28.3 pg Normal 26.0-34.0 [facility] Comment on above: Order Comment: Speci men Type: BLOOD SPECIMEN Performed By: #### 5 8410-2 ####[facility] LABORATORYCLIA [id number] [address] MCHC (RBC) [Mass/Vol] 31.5 g/dL Normal 30.5-36.0 [facility] Comment on above: Order Comment: Speci men Type: BLOOD SPECIMEN Performed By: #### 5 8410-2 ####[facility] LABORATORYCLIA [id number] [address] MCV (RBC) [Entitic vol] 89.9 fL Normal 80.0-100.0 [facility] Comment on above: Order Comment: Speci men Type: BLOOD SPECIMEN Performed By: #### 5 8410-2 ####[facility] LABORATORYCLIA [id number] [address] Nucleated RBC (Bld) [#/Vol] 10*3/uL Normal <0.01 [facility] Comment on above: Order Comment: Speci men Type: BLOOD SPECIMEN Performed By: #### 5 8410-2 ####[facility] LABORATORYCLIA [id number] [address] Platelet mean volume (Bld) [Entitic vol] 10.3 fL Normal 9.0-12.7 [facility] Comment on above: Order Comment: Speci men Type: BLOOD SPECIMEN Performed By: #### 5 8410-2 ####[facility] LABORATORYCLIA [id number] [address] Platelets (Bld) [#/Vol] 236 10*3/uL Normal 150-400 [facility] Comment on above: Order Comment: Speci men Type: BLOOD SPECIMEN Performed By: #### 5 8410-2 ####[facility] LABORATORYCLIA [id number] [address] RBC (Bld) [#/Vol] 4.27 10*6/uL Normal 4.20-6.00 [facility] Comment on above: Order Comment: Speci men Type: BLOOD SPECIMEN Performed By: #### 5 8410-2 ####[facility] LABORATORYCLIA [id number] [address] WBC (Bld) [#/Vol] 11.06 10*3/uL High 3.70-11.00 [facility] Comment on above: Order Comment: Speci men Type: BLOOD SPECIMEN Performed By: #### 5 8410-2 ####[facility] LABORATORYCLIA [id number] [address] CONSULT PROGon 06-08-2021 CONSULT PROG Normal [facility] CT BRAIN WO IVCONon 06-08-[address] BRAIN WO IVCON Normal [facility] Magnesium SerPl-mCncon 06-08 Magnesium [Mass/Vol] 2.8 mg/dL High 1.7-2.3 [facility] Comment on above: Order Comment: Speci men Type: BLOOD SPECIMEN Performed By: #### 2 4321-2, 2777-1, 57807-2 ####[facility] LABORATORYCLIA [id number] [address] Microorganism Spec Culton Microorganism identified Cx Nom (Unsp spec) CULTURE, FUNGAL: No Fungus isolated after 28 days FUNGAL SMEAR: No fungus seen Normal [facility] Comment on above: Performed By: #### 1 1475-1 ####[facility]ORYCLIA [id number] [address] [place] NURSING PROGon 06-08-2021 NURSING PROG Normal [facility] [...] with VKA drugs, such as warfarin, the [place] [employer] 2012 Guideline recommends [...] al. Chest 2012, 141:7S-47SNishimpatricia RA, et al. [facility] 2017, 70: 252-289 Performed By: #### 3 4528-0, 23208-1 ####[facility] LABORATORYCLIA [id number] [place] [address] [place] PT Coag (PPP) [Time] 11.9 s Normal 9.7-13.0 [facility] Comment on above: Order Comment: Speci men Type: BLOOD SPECIMEN Performed By: #### 3 4528-0, 14323-0 ####[facility] LABORATORYCLIA [id number] [place] [id number] [place] Phosphate SerPl-mCncon 06-08 Phosphate [Mass/Vol] 2.3 mg/dL Low 2.7-4.8 [facility] Comment on above: Order Comment: Speci men Type: BLOOD SPECIMEN Performed By: #### 2 4321-2, 2777-1, 52049-3 ####[facility]ORATORYCLIA [id number] [address] aPTT PPPon 06-08-2021 aPTT Coag (PPP) [Time] 24.2 s Normal 23.0-32.4 [facility] Comment on above: Order Comment: Speci men Type: BLOOD SPECIMEN Performed By: #### 3 4528-0, 07051-3 ####[facility] LABORATORYCLIA [id number] [address] ALLIED HEALTHon 06-07-2021 ALLIED HEALTH Normal [...] By: #### 6 06-4 ####[facility]ORATORYCLIA [id number] [address] Basic metabolic 2000 panelon 06-07-2021 Anion gap [Moles/Vol] 9 mmol/L Normal 9-18 [facility] Comment on above: Order Comment: Speci men Type: BLOOD SPECIMEN Performed By: #### 1 9123-9, 2777-, 69415-5 ####[facility]ORATORYCLIA [id number] [address] STATES [facility] Calcium [Mass/Vol] 8.8 mg/dL Normal 8.5-10.2 [facility] Comment on above: Order Comment: Speci men Type: BLOOD SPECIMEN Performed By: #### 1 9123-9, 2777-1, 15931-3 ####[facility]ORATORYCLIA [id number] [address] STATES [place] [facility] Chloride [Moles/Vol] 111 mmol/L High 97-105 [facility] Comment on above: Order Comment: Speci men Type: BLOOD SPECIMEN Performed By: #### 1 9123-9, 2777-, 79093-5 ####[facility]ORATORYCLIA [id number] [address] STATES [facility] CO2 [Moles/Vol] 27 mmol/L Normal 22-30 [facility] Comment on above: Order Comment: Speci men Type: BLOOD SPECIMEN Performed By: #### 1 9123-9, 27711-04, 76185-2 ####[facility] LABORATORYCLIA [id number] [place] [address] [place] Creatinine [Mass/Vol] 0.66 mg/dL Low 0.73-1.22 [facility] Comment on above: Order Comment: Speci men Type: BLOOD SPECIMEN Performed By: #### 1 9123-9, 27711-04, ####[facility]ORATORYCLIA [id number] [address] [place] GFR/1.73 sq M.predicted [...] GFR. Performed By: #### 1 9123-9, 27771, 43103-4 ####[facility]ORATORYCLIA [id number] [address] [place] Glucose [Mass/Vol] 123 mg/dL High 74-99 [facility] Comment on above: Order Comment: Speci men Type: BLOOD SPECIMEN Result Comment: The [place] Diabetes Association (ADA) provides guidance for cutoff [...] Standards of Medical Care in Diabetes 2016, [place] Diabetes Association. Diabetes Care. 2016.39(Suppl 1). Performed By: #### 1 9123-9, 2777-, 94585-1 ####[facility]ORATORYCLIA [id number] [address] [place] Potassium [Moles/Vol] 3.6 mmol/L Low 3.7-5.1 [facility] Comment on above: Order Comment: Speci men Type: BLOOD SPECIMEN Performed By: #### 1 9123-9, 27711-04, 41326-6 ####[facility] LABORATORYCLIA [id number] [address] Sodium [Moles/Vol] 147 mmol/L High 136-144 [facility] Comment on above: Order Comment: Speci men Type: BLOOD SPECIMEN Performed By: #### 1 9123-9, 27711-04, 79761-3 ####[facility] LABORATORYCLIA [id number] [address] STATES [facility] Urea nitrogen [Mass/Vol] 30 mg/dL High 9-24 [facility] Comment on above: Order Comment: Speci men Type: BLOOD SPECIMEN Performed By: #### 1 9123-9, 2777, 56572-4 ####[facility] LABORATORYCLIA [id number] [place] [address] [place] CBC W Auto Differential pane l (Bld)on 06-07-2021 Basophils (Bld) [#/Vol] 10*3/uL Normal <0.11 [facility] Comment on above: Order Comment: Speci men Type: BLOOD SPECIMEN Performed By: #### 5 7021-8 ####[facility]ORYCLIA [id number] [address] Basophils/100 WBC (Bld) 0.2 % Normal [facility] Comment on above: Order Comment: Speci men Type: BLOOD SPECIMEN Performed By: #### 5 7021-8 ####[facility]ORYCLIA [id number] [address] Differential cell count method Nom (Bld) Auto Normal [facility] Comment on above: Order Comment: Speci men Type: BLOOD SPECIMEN Performed By: #### 5 7021-8 ####[facility]ORATORYCLIA [id number] [address] Eosinophils (Bld) [#/Vol] 0.06 10*3/uL Normal <0.46 [facility] Comment on above: Order Comment: Speci men Type: BLOOD SPECIMEN Performed By: #### 5 7021-8 ####[facility]ORYCLIA [id number] [address] Eosinophils/100 WBC (Bld) 0.6 % Normal [facility] Comment on above: Order Comment: Speci men Type: BLOOD SPECIMEN Performed By: #### 5 7021-8 ####[facility]ORYCLIA [id number] [address] Erythrocyte distribution width (RBC) [Ratio] 15.8 % High 11.5-15.0 [facility] Comment on above: Order Comment: Speci men Type: BLOOD SPECIMEN Performed By: #### 5 7021-8 ####[facility]ORYCLIA [id number] [address] Hematocrit (Bld) [Volume fraction] 40.4 % Normal 39.0-51.0 [facility] Comment on above: Order Comment: Speci men Type: BLOOD SPECIMEN Performed By: #### 5 7021-8 ####[facility] LABORATORYCLIA [id number] [address] Hemoglobin (Bld) [Mass/Vol] 12.4 g/dL Low 13.0-17.0 [facility] Comment on above: Order Comment: Speci men Type: BLOOD SPECIMEN Performed By: #### 5 7021-8 ####[facility] LABORATORYCLIA [id number] [address] IMMATURE GRAN % 0.7 % Normal [facility] Comment on above: Order Comment: Speci men Type: BLOOD SPECIMEN Performed By: #### 5 7021-8 ####[facility]ORATORYCLIA [id number] [address] IMMATURE GRAN ABS 0.07 k/uL Normal <0.10 [facility] Comment on above: Order Comment: Speci men Type: BLOOD SPECIMEN Performed By: #### 5 7021-8 ####[facility] LABORATORYCLIA [id number] [address] Lymphocytes (Bld) [#/Vol] 1.43 10*3/uL Normal 1.00-4.00 [facility] Comment on above: Order Comment: Speci men Type: BLOOD SPECIMEN Performed By: #### 5 7021-8 ####[facility]ORATORYCLIA [id number] [address] Lymphocytes/100 WBC (Bld) 14.1 % Normal [facility] Comment on above: Order Comment: Speci men Type: BLOOD SPECIMEN Performed By: #### 5 7021-8 ####[facility]ATORYCLIA [id number] [address] MCH (RBC) [Entitic mass] 27.6 pg Normal 26.0-34.0 [facility] Comment on above: Order Comment: Speci men Type: BLOOD SPECIMEN Performed By: #### 5 7021-8 ####[facility]ORYCLIA [id number] [address] MCHC (RBC) [Mass/Vol] 30.7 g/dL Normal 30.5-36.0 [facility] Comment on above: Order Comment: Speci men Type: BLOOD SPECIMEN Performed By: #### 5 7021-8 ####[facility]ATORYCLIA [id number] [address] MCV (RBC) [Entitic vol] 89.8 fL Normal 80.0-100.0 [facility] Comment on above: Order Comment: Speci men Type: BLOOD SPECIMEN Performed By: #### 5 7021-8 ####[facility] LABORATORYCLIA [id number] [address] Monocytes (Bld) [#/Vol] 0.82 10*3/uL Normal <0.87 [facility] Comment on above: Order Comment: Speci men Type: BLOOD SPECIMEN Performed By: #### 5 7021-8 ####[facility] LABORATORYCLIA [id number] [address] Monocytes/100 WBC (Bld) 8.1 % Normal [facility] Comment on above: Order Comment: Speci men Type: BLOOD SPECIMEN Performed By: #### 5 7021-8 ####[facility] LABORATORYCLIA [id number] [address] OF [facility] Neutrophils (Bld) [#/Vol] 7.74 10*3/uL High 1.45-7.50 [facility] Comment on above: Order Comment: Speci men Type: BLOOD SPECIMEN Performed By: #### 5 7021-8 ####[facility]ORYCLIA [id number] [address] Neutrophils/100 WBC (Bld) 76.3 % Normal [facility] Comment on above: Order Comment: Speci men Type: BLOOD SPECIMEN Performed By: #### 5 7021-8 ####[facility]ORYCLIA [id number] [address] [place] Nucleated RBC (Bld) [#/Vol] 10*3/uL Normal <0.01 [facility] Comment on above: Order Comment: Speci men Type: BLOOD SPECIMEN Performed By: #### 5 7021-8 ####[facility] LABORATORYCLIA [id number] [address] Nucleated RBC/100 WBC (Bld) [Ratio] 0.0 /100 WBC Normal 0.0 [facility] Comment on above: Order Comment: Speci men Type: BLOOD SPECIMEN Performed By: #### 5 7021-8 ####[facility] LABORATORYCLIA [id number] [address] Platelet mean volume (Bld) [Entitic vol] 10.4 fL Normal 9.0-12.7 [facility] Comment on above: Order Comment: Speci men Type: BLOOD SPECIMEN Performed By: #### 5 7021-8 ####[facility] LABORATORYCLIA [id number] [address] Platelets (Bld) [#/Vol] 236 10*3/uL Normal 150-400 [facility] Comment on above: Order Comment: Speci men Type: BLOOD SPECIMEN Performed By: #### 5 7021-8 ####[facility] LABORATORYCLIA [id number] [address] RBC (Bld) [#/Vol] 4.50 10*6/uL Normal 4.20-6.00 [facility] Comment on above: Order Comment: Speci men Type: BLOOD SPECIMEN Performed By: #### 5 7021-8 ####[facility] LABORATORYCLIA [id number] [address] WBC (Bld) [#/Vol] 10.14 10*3/uL Normal 3.70-11.00 [facility] Comment on above: Order Comment: Speci men Type: BLOOD SPECIMEN Performed By: #### 5 7021-8 ####[facility]ORYCLIA [id number] [address] CBC panel Auto (Bld)on 06-07 Erythrocyte distribution width (RBC) [Ratio] 15.8 % High 11.5-15.0 [facility] Comment on above: Order Comment: Speci men Type: BLOOD SPECIMEN Performed By: #### 5 8410-2 ####[facility] LABORATORYCLIA [id number] [address] Hematocrit (Bld) [Volume fraction] 40.0 % Normal 39.0-51.0 [facility] Comment on above: Order Comment: Speci men Type: BLOOD SPECIMEN Performed By: #### 5 8410-2 ####[facility] LABORATORYCLIA [id number] [address] Hemoglobin (Bld) [Mass/Vol] 12.3 g/dL Low 13.0-17.0 [facility] Comment on above: Order Comment: Speci men Type: BLOOD SPECIMEN Performed By: #### 5 8410-2 ####[facility] LABORATORYCLIA [id number] [address] MCH (RBC) [Entitic mass] 27.3 pg Normal 26.0-34.0 [facility] Comment on above: Order Comment: Speci men Type: BLOOD SPECIMEN Performed By: #### 5 8410-2 ####[facility] LABORATORYCLIA [id number] [address] MCHC (RBC) [Mass/Vol] 30.8 g/dL Normal 30.5-36.0 [facility] Comment on above: Order Comment: Speci men Type: BLOOD SPECIMEN Performed By: #### 5 8410-2 ####[facility] LABORATORYCLIA [id number] [address] MCV (RBC) [Entitic vol] 88.7 fL Normal 80.0-100.0 [facility] Comment on above: Order Comment: Speci men Type: BLOOD SPECIMEN Performed By: #### 5 8410-2 ####[facility] LABORATORYCLIA [id number] [address] Nucleated RBC (Bld) [#/Vol] 10*3/uL Normal <0.01 [facility] Comment on above: Order Comment: Speci men Type: BLOOD SPECIMEN Performed By: #### 5 8410-2 ####[facility] LABORATORYCLIA [id number] [address] Platelet mean volume (Bld) [Entitic vol] 10.0 fL Normal 9.0-12.7 [facility] Comment on above: Order Comment: Speci men Type: BLOOD SPECIMEN Performed By: #### 5 8410-2 ####[facility] LABORATORYCLIA [id number] [address] Platelets (Bld) [#/Vol] 234 10*3/uL Normal 150-400 [facility] Comment on above: Order Comment: Speci men Type: BLOOD SPECIMEN Performed By: #### 5 8410-2 ####[facility] LABORATORYCLIA [id number] [address] RBC (Bld) [#/Vol] 4.51 10*6/uL Normal 4.20-6.00 [facility] Comment on above: Order Comment: Speci men Type: BLOOD SPECIMEN Performed By: #### 5 8410-2 ####[facility] LABORATORYCLIA [id number] [address] WBC (Bld) [#/Vol] 11.47 10*3/uL High 3.70-11.00 [facility] Comment on above: Order Comment: Speci men Type: BLOOD SPECIMEN Performed By: #### 5 8410-2 ####[facility] LABORATORYCLIA [id number] [address] CONSULT PROGon 06-07-2021 CONSULT PROG Normal [facility] CONSULT PROG Normal [facility] CSF MANUAL DIFFon 06-07-2021 DIF TTL, CSF 92 cells counted Normal [facility] Comment on above: Order Comment: Speci men Type: CEREBROSPINAL FLUID Performed By: #### 3 4563-7, [id number], [id number] ####[facility]ORATORYCLIA [id number] [place], [place] [id number] [place] [address] [place] EOSIN%, CSF 1 % Normal [facility] Comment on above: Order Comment: Speci men Type: CEREBROSPINAL FLUID Performed By: #### 3 4563-7, [id number], [id number] ####[facility]ORYCLIA [id number] [place], [place] [address] [place] [address] OF [place] LYMPH%, CSF 21 % Low 50-90 [facility] Comment on above: Order Comment: Speci men Type: CEREBROSPINAL FLUID Performed By: #### 3 4563-7, [id number], [id number] ####[facility]ATORYCLIA [id number] [address] [place] MACRO%, CSF 27 % High <1 [facility] Comment on above: Order Comment: Speci men Type: CEREBROSPINAL FLUID Result Comment: Tati ected result: Previously reported as 22 % on 06/07/2021 at 1:49 PM EST. Performed By: #### 3 4563-7, [id number], [id number] ####[facility]ATORYCLIA [id number] [place] [address] [place] MONO%, CSF 36 % Normal 10-50 [facility] Comment on above: Order Comment: Speci men Type: CEREBROSPINAL FLUID Performed By: #### 3 4563-7, [id number], [id number] ####[facility]ORYCLIA [id number] [place] [address] [place] NEUT%, CSF 11 % High 0-3 [facility] Comment on above: Order Comment: Speci men Type: CEREBROSPINAL FLUID Performed By: #### 3 4563-7, [id number], [id number] ####[facility]ORYCLIA [id number] [place], [place] [address] [place] [address] [place] OTHER CL%, CSF 4 % Normal [facility] Comment on above: Order Comment: Speci men Type: CEREBROSPINAL FLUID Result Comment: Path review to follow.Corrected result: Previously reported as 10 % on 06/07/2021 at 1:49 PM EST. Performed By: #### 3 4563-7, [id number], [id number] ####[facility] LABORATORYCLIA [id number] [address] CSF PATHOLOGIST INTERP (LAB REFLEX ORDER-NO BILL)on 06-07-2021 CSF STAFF REVIEW Negative for maligna nt cells. Rare immature myeloid or ventricular lining cells. Normal [facility] Comment on above: Order Comment: Speci men Type: CEREBROSPINAL FLUID Performed By: #### 3 4563-7, [id number], [id number] ####[facility] LABORATORYCLIA [id number] [address] Pathologist name Reviewed by Eloise rebolledo MD [facility] Comment on above: Order Comment: Speci men Type: CEREBROSPINAL FLUID Performed By: #### 3 4563-7, [id number], [id number] ####[facility] LABORATORYCLIA [id number] [address] BRAIN WO IVCONon 06-07-19 CT BRAIN WO IVCON Normal [facility] CT BRAIN WO IVCON Normal [facility] Cell count panel (CSF)on Clarity (CSF) Clear Normal Clear [facility] Comment on above: Order Comment: Speci men Type: CEREBROSPINAL FLUID Performed By: #### 3 4563-7, [id number], [id number] ####[facility] LABORATORYCLIA [id number] [address] Clarity (Unsp spec) Not Indicated Normal Clear [facility] Comment on above: Order Comment: Speci men Type: CEREBROSPINAL FLUID Performed By: #### 3 4563-7, [id number], [id number] ####[facility]ORYCLIA [id number] [address] OF [place] Color (CSF) Colorless Normal Colorless [facility] Comment on above: Order Comment: Speci men Type: CEREBROSPINAL FLUID Performed By: #### 3 4563-7, [id number], [id number] ####[facility] LABORATORYCLIA [id number] [address] Color (Spun CSF) Not Indicated Normal Colorless [facility] Comment on above: Order Comment: Speci men Type: CEREBROSPINAL FLUID Performed By: #### 3 4563-7, [id number], [id number] ####[facility] LABORATORYCLIA [id number] [address] CSF TUBE NUMBER Sterile Container Normal [facility] Comment on above: Order Comment: Speci men Type: CEREBROSPINAL FLUID Performed By: #### 3 4563-7, [id number], [id number] ####[facility] LABORATORYCLIA [id number] [address] RBC Manual cnt (CSF) [#/Vol] 42 cells/uL High 0-5 [facility] Comment on above: Order Comment: Speci men Type: CEREBROSPINAL FLUID Performed By: #### 3 4563-7, [id number], [id number] ####[facility] LABORATORYCLIA [id number] [address] WBC Manual cnt (CSF) [#/Vol] 1 cells/uL Normal 0-[address] [place] [address] Comment on above: Order Comment: Speci men Type: CEREBROSPINAL FLUID Performed By: #### 3 4563-7, [id number], [id number] ####[facility] LABORATORYCLIA [id number] [address] Glucose CSF-mCncon 2 Glucose (CSF) [Mass/Vol] [...] Glucose HK (GLUC3) [package insert V 12.0 Cymraes]. [employer], [place], [place]. September 2015. 2. Michelle Moore, Michelle Manjarrez (2015). Chapter 7: Glucose and Lactate. F. Irina rose al.(eds.), Cerebrospinal Fluid in Clinical Neurology. Saunders: [employer]. Performed By: #### 2 880-3, 2342-4 ####[facility] LABORATORYCLIA [id number] [address] Lactate (Bld) [Moles/Vol]on 06-07-2021 Lactate [Moles/Vol] 0.9 mmol/L Normal 0.5-2.2 [facility] Comment on above: Order Comment: Speci men Type: BLOOD SPECIMEN Performed By: #### 3 2693-4 ####[facility] LABORATORYCLIA [id number] [address] OF [facility] Lipase SerPl-cCncon 06-07-19 22 Lipase [Catalytic activity/Vol] 35 U/L Normal 16-61 [facility] Comment on above: Order Comment: Speci men Type: BLOOD SPECIMEN Performed By: #### 3 040-3, PROCAL ####[facility] LABORATORYCLIA [id number] [address] Magnesium SerPl-mCncon 06-07 Magnesium [Mass/Vol] 2.7 mg/dL High 1.7-2.3 [facility] Comment on above: Order Comment: Speci men Type: BLOOD SPECIMEN Performed By: #### 1 9123-9, 2777-1, 05783-1 ####[facility] LABORATORYCLIA [id number] [address] PROCALCITONIN (LAB)on 2021 Procalcitonin [Mass/Vol] 0.13 ng/mL High <0.09 [facility] Comment on above: Order Comment: Speci men Type: BLOOD SPECIMEN Result Comment: For a guided interpretation of test results, please visit the Change in Procalcitonin Calculator, [email or web address]. Performed By: #### 3 040-3, PROCAL ####[facility] LABORATORYCLIA [id number] [address] Phosphate SerPl-mCncon 06-07 Phosphate [Mass/Vol] 1.9 mg/dL Low 2.7-4.8 [facility] Comment on above: Order Comment: Speci men Type: BLOOD SPECIMEN Performed By: #### 1 9123-9, 2777-1, 33793-6 ####[facility] LABORATORYCLIA [id number] [address] Prot CSF-mCncon 06-07-2021 Protein (CSF) [Mass/Vol] 33 mg/dL Normal 15-45 [facility] Comment on above: Order Comment: Speci men Type: CEREBROSPINAL FLUID Performed By: #### 2 880-3, 2342-4 ####[facility] LABORATORYCLIA [id number] [address] SARS-CoV-2 RNA Resp Ql MEGAN+p robeon 06-07-2021 SARS-CoV-2 (COVID-19) RNA MEGAN+probe Ql (Resp) COVID 19 RESULT: SARS-CoV-2 (Agent of COVID-19) Not Detected by PCR. This test has been authorized by FDA under an Emergency Use Authorization (EUA). Normal [facility] Comment on above: Performed By: #### 9 4500-6 ####[facility] LABORATORYCLIA [id number] [address] TYPE AND SCREENon 06-07-2021 ABO O Normal [facility] Comment on above: Order Comment: Speci men Type: BLOOD SPECIMEN Performed By: #### T SCR ####[facility] BLOOD BANKCLIA [id number] [address] HISTORICAL AB SCR STATUS Negative Normal [facility] Comment on above: Order Comment: Speci men Type: BLOOD SPECIMEN Performed By: #### T SCR ####[facility] BLOOD BANKCLIA [id number] [address] Rh Nom (Bld) Positive Normal [facility] Comment on above: Order Comment: Speci men Type: BLOOD SPECIMEN Performed By: #### T SCR ####[facility] BLOOD BANKCLIA [id number] [address] TYPE AND SCREEN EXPIRATION 06/10/2021 23:59 Normal [facility] Comment on above: Order Comment: Speci men Type: BLOOD SPECIMEN Performed By: #### T SCR ####[facility] BLOOD BANKCLIA [id number] [address] Vancomycin random [Mass/Vol] on 06-07-2021 Vancomycin [...] By: #### 4 091-5 ####[facility] LABORATORYCLIA [id number] [address] XR CHEST 1V FRONTAL PORTon 0 06-07-2021 XR CHEST 1V FRONTAL PORT Normal [facility] Basic metabolic 2000 panelon 06-06-2021 Anion gap [Moles/Vol] 11 mmol/L Normal 9-18 [facility] Comment on above: Order Comment: Speci men Type: BLOOD SPECIMEN Performed By: #### 2 4321-2, , 2776-05 ####[facility] LABORATORYCLIA [id number] [address] Calcium [Mass/Vol] 8.6 mg/dL Normal 8.5-10.2 [facility] Comment on above: Order Comment: Speci men Type: BLOOD SPECIMEN Performed By: #### 2 4321-2, , 2776-05 ####[facility] LABORATORYCLIA [id number] [address] Chloride [Moles/Vol] 108 mmol/L High 97-105 [facility] Comment on above: Order Comment: Speci men Type: BLOOD SPECIMEN Performed By: #### 2 4321-2, , 2776-05 ####[facility] LABORATORYCLIA [id number] [address] [place] CO2 [Moles/Vol] 25 mmol/L Normal 22-30 [facility] Comment on above: Order Comment: Speci men Type: BLOOD SPECIMEN Performed By: #### 2 4321-2, , 2776-05 ####[facility] LABORATORYCLIA [id number] [address] [place] Creatinine [Mass/Vol] 0.76 mg/dL Normal 0.73-1.22 [facility] Comment on above: Order Comment: Speci men Type: BLOOD SPECIMEN Performed By: #### 2 4321-2, , 2776-05 ####[facility] LABORATORYCLIA [id number] [address] [place] GFR/1.73 sq M.predicted [...] 2 4321-2, , 2776-05 ####[facility] LABORATORYCLIA [id number] [address] [place] Glucose [Mass/Vol] 116 mg/dL High 74-99 [facility] Comment on above: Order Comment: Speci men Type: BLOOD SPECIMEN Result Comment: The [place] Diabetes Association (ADA) provides guidance for cutoff [...] Standards of Medical Care in Diabetes 2016, [place] Diabetes Association. Diabetes Care. 2016.39(Suppl 1). Performed By: #### 2 4321-2, , 2776-05 ####[facility] LABORATORYCLIA [id number] [address] STATES OF [facility] Potassium [Moles/Vol] 3.5 mmol/L Low 3.7-5.1 [facility] Comment on above: Order Comment: Speci men Type: BLOOD SPECIMEN Performed By: #### 2 1-2, , 2776-05 ####[facility] LABORATORYCLIA [id number] [address] STATES [facility] Sodium [Moles/Vol] 144 mmol/L Normal 136-144 [facility] Comment on above: Order Comment: Speci men Type: BLOOD SPECIMEN Performed By: #### 2 4321-2, , 2776-05 ####[facility] LABORATORYCLIA [id number] [address] [place] Urea nitrogen [Mass/Vol] 31 mg/dL High 9-24 [facility] Comment on above: Order Comment: Speci men Type: BLOOD SPECIMEN Performed By: #### 2 4321-2, , 2776-05 ####[facility] LABORATORYCLIA [id number] [address] [place] CASE MANAGEMon 01-31-2022 CASE MANAGEM Normal [facility] CBC panel Auto (Bld)on 06-06 Erythrocyte distribution width (RBC) [Ratio] 15.8 % High 11.5-15.0 [facility] Comment on above: Order Comment: Speci men Type: BLOOD SPECIMEN Performed By: #### 5 8410-2 ####[facility] LABORATORYCLIA [id number] [address] Hematocrit (Bld) [Volume fraction] 39.5 % Normal 39.0-51.0 [facility] Comment on above: Order Comment: Speci men Type: BLOOD SPECIMEN Performed By: #### 5 8410-2 ####[facility] LABORATORYCLIA [id number] [address] Hemoglobin (Bld) [Mass/Vol] 12.2 g/dL Low 13.0-17.0 [facility] Comment on above: Order Comment: Speci men Type: BLOOD SPECIMEN Performed By: #### 5 8410-2 ####[facility] LABORATORYCLIA [id number] [address] MCH (RBC) [Entitic mass] 27.8 pg Normal 26.0-34.0 [facility] Comment on above: Order Comment: Speci men Type: BLOOD SPECIMEN Performed By: #### 5 8410-2 ####[facility] LABORATORYCLIA [id number] [address] MCHC (RBC) [Mass/Vol] 30.9 g/dL Normal 30.5-36.0 [facility] Comment on above: Order Comment: Speci men Type: BLOOD SPECIMEN Performed By: #### 5 8410-2 ####[facility] LABORATORYCLIA [id number] [address] MCV (RBC) [Entitic vol] 90.0 fL Normal 80.0-100.0 [facility] Comment on above: Order Comment: Speci men Type: BLOOD SPECIMEN Performed By: #### 5 8410-2 ####[facility] LABORATORYCLIA [id number] [address] Nucleated RBC (Bld) [#/Vol] 10*3/uL Normal <0.01 [facility] Comment on above: Order Comment: Speci men Type: BLOOD SPECIMEN Performed By: #### 5 8410-2 ####[facility] LABORATORYCLIA [id number] [address] Platelet mean volume (Bld) [Entitic vol] 10.4 fL Normal 9.0-12.7 [facility] Comment on above: Order Comment: Speci men Type: BLOOD SPECIMEN Performed By: #### 5 8410-2 ####[facility] LABORATORYCLIA [id number] [address] Platelets (Bld) [#/Vol] 236 10*3/uL Normal 150-400 [facility] Comment on above: Order Comment: Speci men Type: BLOOD SPECIMEN Performed By: #### 5 8410-2 ####[facility] LABORATORYCLIA [id number] [address] RBC (Bld) [#/Vol] 4.39 10*6/uL Normal 4.20-6.00 [facility] Comment on above: Order Comment: Speci men Type: BLOOD SPECIMEN Performed By: #### 5 8410-2 ####[facility] LABORATORYCLIA [id number] [address] OF [facility] WBC (Bld) [#/Vol] 9.74 10*3/uL Normal 3.70-11.00 [facility] Comment on above: Order Comment: Speci men Type: BLOOD SPECIMEN Performed By: #### 5 8410-2 ####[facility] LABORATORYCLIA [id number] [address] CONSULT PROGon 06-06-2021 CONSULT PROG Normal [facility] CONSULT PROG Normal [facility] Magnesium SerPl-mCncon 06-06 Magnesium [Mass/Vol] 2.5 mg/dL High 1.7-2.3 [facility] Comment on above: Order Comment: Speci men Type: BLOOD SPECIMEN Performed By: #### 2 4321-2, 91313-6, 2777-1 ####[facility] LABORATORYCLIA [id number] [place] [id number] [place] PT panel Coag (PPP)on 2021 INR Coag (PPP) [Relative time] 1.0 {INR} Normal 0.9-1.3 [facility] Comment on above: Order Comment: Speci men Type: BLOOD SPECIMEN Result Comment: Yris min K Antagonist (VKA) Therapeutic Range: INR 2 to 3 (Target INR of 2.5)Note: For patients treated with VKA drugs, such as warfarin, the [employer] 2012 Guideline recommends [...] al. Chest 2012, 141:7S-47SAlba RA, et al. [facility] 2017, 70: 252-289 Performed By: #### 3 4528-0, 04160-9 ####[facility] LABORATORYCLIA [id number] [place] [address] [place] PT Coag (PPP) [Time] 11.4 s Normal 9.7-13.0 [facility] Comment on above: Order Comment: Speci men Type: BLOOD SPECIMEN Performed By: #### 3 4528-0, 28231-5 ####[facility] LABORATORYCLIA [id number] [place] [address] [place] Phosphate SerPl-mCncon 06-06 Phosphate [Mass/Vol] 2.3 mg/dL Low 2.7-4.8 [facility] Comment on above: Order Comment: Speci men Type: BLOOD SPECIMEN Performed By: #### 2 4321-2, 31185-2, 2777-1 ####[facility] LABORATORYCLIA [id number] [address] THROMBOGRAPH HEPARINASE PANE Kiel 06-06-2021 Clot angle after addition of heparinase TEG (Bld) [Angle] 70.2 degrees Normal 47.0-74.0 [facility] Comment on above: Order Comment: Speci men Type: BLOOD SPECIMEN Performed By: #### T EGHPP ####[id number] [address] Clot Lysis 30 Min post maximum clot amplitude TEG (Bld) [Length fraction] 0.0 % Normal 0.0-8.0 [facility] Comment on above: Order Comment: Speci men Type: BLOOD SPECIMEN Performed By: #### T EGHPP ####[facility]ATORYCLIA [id number] [address] Clotting time after addition of heparinase TEG (Bld) 5.7 minutes Normal 4.0-10.0 [facility] Comment on above: Order Comment: Speci men Type: BLOOD SPECIMEN Performed By: #### T EGHPP ####[facility]ORATORYCLIA [id number] [address] Coagulation index TEG Qn (Bld) 1.2 Normal -4.6-3.2 [facility] Comment on above: Order Comment: Speci men Type: BLOOD SPECIMEN Result Comment: The Coagulation Index, a secondary parameter, is labeled by the idea worker as for "research use only" and is used per the idea worker's instructions. Its performance characteristics were determined by [facility]'s Isrrael Perez [facility] Pathology and Laboratory Medicine [place] in a manner consistent with CLIA requirements. This test has not been cleared by the U.S. Food and Drug Administration. Performed By: #### T EGHPP ####[facility]ORATORYCLIA [id number] [address] Maximum clot firmness after addition of heparinase TEG (Bld) [Length] 64.0 mm Normal 51.0-75.0 [facility] Comment on above: Order Comment: Speci men Type: BLOOD SPECIMEN Performed By: #### T EGHPP ####[facility]ORATORYCLIA [id number] [address] Vancomycin random [Mass/Vol] on 06-06-2021 Vancomycin [...] By: #### 4 091-5 ####[facility]ATORYCLIA [id number] [address] Vancomycin [Mass/Vol] 13.5 ug/mL Normal 10.0-20.0 [facility] Comment on above: Order Comment: Speci men Type: BLOOD SPECIMEN Result Comment: Refe rence ranges and high/low indicator flags are provided as general guidelines only. The treating physician must determine appropriate target levels/dosing based on the specific clinical situation. Performed By: #### 4 091-5 ####[facility]ATORYCLIA [id number] [address] aPTT PPPon 06-06-2021 aPTT Coag (PPP) [Time] 27.8 s Normal 23.0-32.4 [facility] Comment on above: Order Comment: Speci men Type: BLOOD SPECIMEN Performed By: #### 3 4528-0, 46785-4 ####[facility]ATORYCLIA [id number] [address] Basic metabolic 2000 panelon 06-05-2021 Anion gap [Moles/Vol] 11 mmol/L Normal 9-18 [facility] Comment on above: Order Comment: Speci men Type: BLOOD SPECIMEN Performed By: #### 1 9123-9, 02273-8, 2776- ####[facility]ORATORYCLIA [id number] [address] STATES OF [facility] Calcium [Mass/Vol] 8.6 mg/dL Normal 8.5-10.2 [facility] Comment on above: Order Comment: Speci men Type: BLOOD SPECIMEN Performed By: #### 1 9123-9, 62482-5, 2776- ####[facility]ORATORYCLIA [id number] [address] OF [facility] Chloride [Moles/Vol] 108 mmol/L High 97-105 [facility] Comment on above: Order Comment: Speci men Type: BLOOD SPECIMEN Performed By: #### 1 91239, 10778-5, 2776-05 ####[facility]ORYCLIA [id number] [address] STATES OF [facility] CO2 [Moles/Vol] 25 mmol/L Normal 22-30 [facility] Comment on above: Order Comment: Speci men Type: BLOOD SPECIMEN Performed By: #### 1 9123-9, , 2776-05 ####[facility]ATORYCLIA [id number] [address] [place] Creatinine [Mass/Vol] 0.77 mg/dL Normal 0.73-1.22 [facility] Comment on above: Order Comment: Speci men Type: BLOOD SPECIMEN Performed By: #### 1 9123-9, 56345-6, 2776-05 ####[facility]ATORYCLIA [id number] [place] [address] [place] GFR/1.73 sq M.predicted [...] actual GFR. Performed By: #### 1 9123-9, 40690-4, 2776-05 ####[facility]ATORYCLIA [id number] [place] [address] [place] Glucose [Mass/Vol] 96 mg/dL Normal 74-99 [facility] Comment on above: Order Comment: Speci men Type: BLOOD SPECIMEN Result Comment: The [place] Diabetes Association (ADA) provides guidance for cutoff [...] Standards of Medical Care in Diabetes 2016, [place] Diabetes Association. Diabetes Care. 2016.39(Suppl 1). Performed By: #### 1 9123-9, , 2776-05 ####[facility]ATORYCLIA [id number] [address] [place] Potassium [Moles/Vol] 3.9 mmol/L Normal 3.7-5.1 [facility] Comment on above: Order Comment: Speci men Type: BLOOD SPECIMEN Performed By: #### 1 9123-9, 48057-0, 2776-05 ####[facility]ATORYCLIA [id number] [address] [place] Sodium [Moles/Vol] 144 mmol/L Normal 136-144 [facility] Comment on above: Order Comment: Speci men Type: BLOOD SPECIMEN Performed By: #### 1 9123-9, 98620-2, 2777-1 ####[facility] LABORATORYCLIA [id number] [address] Urea nitrogen [Mass/Vol] 26 mg/dL High 9-24 [facility] Comment on above: Order Comment: Speci men Type: BLOOD SPECIMEN Performed By: #### 1 9123-9, 77854-3, 277- ####[facility]ORATORYCLIA [id number] [address] CBC panel Auto (Bld)on 06-05 Erythrocyte distribution width (RBC) [Ratio] 15.9 % High 11.5-15.0 [facility] Comment on above: Order Comment: Speci men Type: BLOOD SPECIMEN Performed By: #### 5 8410-2 ####[facility]ORATORYCLIA [id number] [address] Hematocrit (Bld) [Volume fraction] 39.6 % Normal 39.0-51.0 [facility] Comment on above: Order Comment: Speci men Type: BLOOD SPECIMEN Performed By: #### 5 8410-2 ####[facility]ATORYCLIA [id number] [address] Hemoglobin (Bld) [Mass/Vol] 12.3 g/dL Low 13.0-17.0 [facility] Comment on above: Order Comment: Speci men Type: BLOOD SPECIMEN Performed By: #### 5 8410-2 ####[facility]ATORYCLIA [id number] [address] MCH (RBC) [Entitic mass] 28.1 pg Normal 26.0-34.0 [facility] Comment on above: Order Comment: Speci men Type: BLOOD SPECIMEN Performed By: #### 5 8410-2 ####[facility]ATORYCLIA [id number] [address] MCHC (RBC) [Mass/Vol] 31.1 g/dL Normal 30.5-36.0 [facility] Comment on above: Order Comment: Speci men Type: BLOOD SPECIMEN Performed By: #### 5 8410-2 ####[facility]ATORYCLIA [id number] [address] MCV (RBC) [Entitic vol] 90.4 fL Normal 80.0-100.0 [facility] Comment on above: Order Comment: Speci men Type: BLOOD SPECIMEN Performed By: #### 5 8410-2 ####[facility]ATORYCLIA [id number] [address] Nucleated RBC (Bld) [#/Vol] 10*3/uL Normal <0.01 [facility] Comment on above: Order Comment: Speci men Type: BLOOD SPECIMEN Performed By: #### 5 8410-2 ####[facility]ORATORYCLIA [id number] [address] Platelet mean volume (Bld) [Entitic vol] 10.5 fL Normal 9.0-12.7 [facility] Comment on above: Order Comment: Speci men Type: BLOOD SPECIMEN Performed By: #### 5 8410-2 ####[facility]ORATORYCLIA [id number] [address] Platelets (Bld) [#/Vol] 224 10*3/uL Normal 150-400 [facility] Comment on above: Order Comment: Speci men Type: BLOOD SPECIMEN Performed By: #### 5 8410-2 ####[facility]ATORYCLIA [id number] [address] RBC (Bld) [#/Vol] 4.38 10*6/uL Normal 4.20-6.00 [facility] Comment on above: Order Comment: Speci men Type: BLOOD SPECIMEN Performed By: #### 5 8410-2 ####[facility]ATORYCLIA [id number] [address] WBC (Bld) [#/Vol] 9.66 10*3/uL Normal 3.70-11.00 [facility] Comment on above: Order Comment: Speci men Type: BLOOD SPECIMEN Performed By: #### 5 8410-2 ####[facility]ORATORYCLIA [id number] [address] CONSULT PROGon 06-05-2021 CONSULT PROG Normal [facility] Gas and Carbon monoxide pane l (BldV)on 06-05-2021 Base excess Calc (BldV) [Moles/Vol] 1.8 mmol/L Normal 0-2 [facility] Comment on above: Order Comment: Speci men Type: VENOUS BLOOD SPECIMEN Performed By: #### 2 4344-4 ####[facility]ORATORYCLIA [id number] [address] Body temperature 100.4 [degF] Normal [facility] Comment on above: Order Comment: Speci men Type: VENOUS BLOOD SPECIMEN Performed By: #### 2 4344-4 ####[facility]ORATORYCLIA [id number] [address] CALCIUM IONIZED, PH CORRECTED 1.21 mmol/L Normal 1.08-1.30 [facility] Comment on above: Order Comment: Speci men Type: VENOUS BLOOD SPECIMEN Performed By: #### 2 4344-4 ####[facility]ORATORYCLIA [id number] [address] Calcium.ionized (BldV) [Mass/Vol] 1.19 mmol/L Normal 1.08-1.30 [facility] Comment on above: Order Comment: Speci men Type: VENOUS BLOOD SPECIMEN Performed By: #### 2 4344-4 ####[facility]ORATORYCLIA [id number] [address] Carboxyhemoglobin (BldV) [Mass fraction] 1.0 % Normal 0.0-2.0 [facility] Comment on above: Order Comment: Speci men Type: VENOUS BLOOD SPECIMEN Result Comment: Carb oxyhemoglobin Reference Range for Smokers: 2.0-8.0% Performed By: #### 2 4344-4 ####[facility]ORYCLIA [id number] [address] CO2 (BldV) [Partial pressure] 41 mm[Hg] Low 42-55 [facility] Comment on above: Order Comment: Speci men Type: VENOUS BLOOD SPECIMEN Performed By: #### 2 4344-4 ####[facility] LABORATORYCLIA [id number] [address] CO2 [Moles/Vol] 23.4 mmol/L Low 25-29 [facility] Comment on above: Order Comment: Speci men Type: VENOUS BLOOD SPECIMEN Performed By: #### 2 4344-4 ####[facility]ORYCLIA [id number] [address] CO2 adjusted to patient's actual temperature (BldV) [Partial pressure] 43 mmHg Normal 42-55 [facility] Comment on above: Order Comment: Speci men Type: VENOUS BLOOD SPECIMEN Performed By: #### 2 4344-4 ####[facility]ORYCLIA [id number] [address] Glucose [Mass/Vol] 101 mg/dL Normal 60-105 [facility] Comment on above: Order Comment: Speci men Type: VENOUS BLOOD SPECIMEN Performed By: #### 2 4344-4 ####[facility]ORYCLIA [id number] [address] HCO3 (Bld) [Moles/Vol] 26.0 mmol/L Normal 24-28 [facility] Comment on above: Order Comment: Speci men Type: VENOUS BLOOD SPECIMEN Performed By: #### 2 4344-4 ####[facility]ORYCLIA [id number] [address] Hematocrit (Bld) [Volume fraction] 38.4 % Low 39.0-51.0 [facility] Comment on above: Order Comment: Speci men Type: VENOUS BLOOD SPECIMEN Performed By: #### 2 4344-4 ####[facility]ORATORYCLIA [id number] [place] [address] [facility] Hemoglobin (Bld) [Mass/Vol] 12.5 g/dL Low 13.0-17.0 [facility] Comment on above: Order Comment: Speci men Type: VENOUS BLOOD SPECIMEN Performed By: #### 2 4344-4 ####[facility]ORATORYCLIA [id number] [place], [place] [address] [place] [address] [place] Methemoglobin (Bld) [Mass fraction] % Normal 0.0-1.5 [facility] Comment on above: Order Comment: Speci men Type: VENOUS BLOOD SPECIMEN Performed By: #### 2 4344-4 ####[facility]ATORYCLIA [id number] [address] O2 THERAPY Ventilator Normal [facility] Comment on above: Order Comment: Speci men Type: VENOUS BLOOD SPECIMEN Performed By: #### 2 4344-4 ####[facility]ORATORYCLIA [id number] [place], [place] [address] [place] [address] [place] Oxygen (BldV) [Partial pressure] 44 mm[Hg] Normal 35-45 [facility] Comment on above: Order Comment: Speci men Type: VENOUS BLOOD SPECIMEN Performed By: #### 2 4344-4 ####[facility]ATORYCLIA [id number] [place], [place] [address] [place] [address] OF [facility] Oxygen adjusted to patient's actual temperature (BldV) [Partial pressure] 46.8 mmHg High 35-45 [facility] Comment on above: Order Comment: Speci men Type: VENOUS BLOOD SPECIMEN Performed By: #### 2 4344-4 ####[facility]ORYCLIA [id number] [address] Oxygen saturation in Blood 76.5 % Normal 60-85 [facility] Comment on above: Order Comment: Speci men Type: VENOUS BLOOD SPECIMEN Performed By: #### 2 4344-4 ####[facility]ORYCLIA [id number] [address] Oxyhemoglobin (BldV) [Mass fraction] 75 % Normal 60-85 [facility] Comment on above: Order Comment: Speci men Type: VENOUS BLOOD SPECIMEN Performed By: #### 2 4344-4 ####[facility]ORATORYCLIA [id number] [address] pH (BldV) 7.42 [pH] Normal 7.32-7.42 [facility] Comment on above: Order Comment: Speci men Type: VENOUS BLOOD SPECIMEN Performed By: #### 2 4344-4 ####[facility]ORATORYCLIA [id number] [address] pH adjusted to patient's actual temperature (BldV) 7.40 Normal 7.32-7.42 [facility] Comment on above: Order Comment: Speci men Type: VENOUS BLOOD SPECIMEN Performed By: #### 2 4344-4 ####[facility]ORATORYCLIA [id number] [address] Potassium [Moles/Vol] 3.7 mmol/L Normal 3.5-5.0 [facility] Comment on above: Order Comment: Speci men Type: VENOUS BLOOD SPECIMEN Performed By: #### 2 4344-4 ####[facility]ORATORYCLIA [id number] [address] Sodium [Moles/Vol] 141 mmol/L Normal 136-144 [facility] Comment on above: Order Comment: Speci men Type: VENOUS BLOOD SPECIMEN Performed By: #### 2 4344-4 ####[facility]ORATORYCLIA [id number] [address] OF [place] Magnesium SerPl-mCncon 06-05 Magnesium [Mass/Vol] 2.3 mg/dL Normal 1.7-2.3 [facility] Comment on above: Order Comment: Speci men Type: BLOOD SPECIMEN Performed By: #### 1 9123-9, 76031-2, 2777-1 ####[facility]ORATORYCLIA [id number] [place] [address] [place] Phosphate SerPl-mCncon 06-05 Phosphate [Mass/Vol] 2.9 mg/dL Normal 2.7-4.8 [facility] Comment on above: Order Comment: Speci men Type: BLOOD SPECIMEN Performed By: #### 1 9123-9, 13810-0, 2777-1 ####[facility] LABORATORYCLIA [id number] [place] [address] [place] Vancomycin random [Mass/Vol] [...] By: #### 4 091-5 ####[facility] LABORATORYCLIA [id number] [place] [address] [place] (1,3)-V-Q-WVWASMtc 2 (1,3) B-D GLUCAN <31 Normal <60 [facility] Comment on above: Order Comment: Speci [facility] Type: BLOOD SPECIMEN Performed By: #### B DGLUC ####[facility] LABCLIA [id number] [address] [place] [address] [place] (1,3) B-D GLUCAN, QUAL Negative Normal NEGAT [facility] Comment on above: Order Comment: Speci men Type: BLOOD SPECIMEN Result Comment: Cert ain fungi, such as the genus Cryptococcus which produces very low levels of (1,3)-vheu-B-dwtauq, may not result in serum (1,3)-pgiu-S-cgqkxx sufficiently elevated so as to be detected by the assay. Infections with fungi of the order Mucorales such as Absidia, Mucor and Rhizopus which are not known to produce (1,3)-bhnt-T-knbthr, are also observed to yield low serum (1,3)-bstm-V-nfjmop titers.In addition, the yeast phase of Blastomyces dermatitidis produces little (1,3)-nrlr-H-cxofaa and may not be detected by the assay. Performed By: #### B DGLUC ####[facility] LABCLIA [id number] [address]13[place], [place] [address] [place] ALLIED HEALTHon 06-04-2021 ALLIED HEALTH Normal [facility] ALLIED HEALTH Normal [facility] ARTERIAL BLOOD GASESon 06-04 Base excess Calc (Bld) [Moles/Vol] 3 mmol/L High 0-2 [facility] Comment on above: Order Comment: Speci men Type: ARTERIAL BLOOD SPECIMEN Performed By: #### A LLBG ####[facility]ORATORYCLIA [id number] [address] STATES [facility] Body temperature 98.06 [degF] Normal [facility] Comment on above: Order Comment: Speci men Type: ARTERIAL BLOOD SPECIMEN Performed By: #### A LLBG ####[facility] LABORATORYCLIA [id number] [address] STATES OF [facility] CALCIUM IONIZED, PH CORRECTED 1.19 mmol/L Normal 1.08-1.30 [facility] Comment on above: Order Comment: Speci men Type: ARTERIAL BLOOD SPECIMEN Performed By: #### A LLBG ####[facility]ORATORYCLIA [id number] [address] STATES [facility] Calcium.ionized (BldV) [Mass/Vol] 1.14 mmol/L Normal 1.08-1.30 [facility] Comment on above: Order Comment: Speci men Type: ARTERIAL BLOOD SPECIMEN Performed By: #### A LLBG ####[facility]ORATORYCLIA [id number] [address] Carboxyhemoglobin (BldA) [Mass fraction] 1.2 % Normal 0.0-2.0 [facility] Comment on above: Order Comment: Speci men Type: ARTERIAL BLOOD SPECIMEN Result Comment: Carb oxyhemoglobin Reference Range for Smokers: 2.0-8.0% Performed By: #### A LLBG ####[facility]ORYCLIA [id number] [address] CO2 (Bld) [Partial pressure] 35 mm Hg Low 36-46 [facility] Comment on above: Order Comment: Speci men Type: ARTERIAL BLOOD SPECIMEN Performed By: #### A LLBG ####[facility]ORYCLIA [id number] [address] CO2 [Moles/Vol] 23.2 mmol/L Normal 22-28 [facility] Comment on above: Order Comment: Speci men Type: ARTERIAL BLOOD SPECIMEN Performed By: #### A LLBG ####[facility]ORATORYCLIA [id number] [address] CO2 adjusted to patient's actual temperature (Bld) [Partial pressure] 34 mmHg Low 36-46 [facility] Comment on above: Order Comment: Speci men Type: ARTERIAL BLOOD SPECIMEN Performed By: #### A LLBG ####[facility]ORATORYCLIA [id number] [address] OF [facility] Glucose [Mass/Vol] 115 mg/dL High 60-105 [facility] Comment on above: Order Comment: Speci men Type: ARTERIAL BLOOD SPECIMEN Performed By: #### A LLBG ####[facility]ORYCLIA [id number] [address] OF [facility] HCO3 (Bld) [Moles/Vol] 26 mmol/L Normal 22-26 [facility] Comment on above: Order Comment: Speci men Type: ARTERIAL BLOOD SPECIMEN Performed By: #### A LLBG ####[facility]ORYCLIA [id number] [address] Hematocrit (Bld) [Volume fraction] 35.3 % Low 39.0-51.0 [facility] Comment on above: Order Comment: Speci men Type: ARTERIAL BLOOD SPECIMEN Performed By: #### A LLBG ####[facility]ORYCLIA [id number] [address] OF [facility] Hemoglobin (Bld) [Mass/Vol] 11.5 g/dL Low 13.0-17.0 [facility] Comment on above: Order Comment: Speci men Type: ARTERIAL BLOOD SPECIMEN Performed By: #### A LLBG ####[facility]ORYCLIA [id number] [address] STATES [place] Methemoglobin (Bld) [Mass fraction] % Normal 0.0-1.5 [facility] Comment on above: Order Comment: Speci men Type: ARTERIAL BLOOD SPECIMEN Performed By: #### A LLBG ####[facility]ORYCLIA [id number] [address] O2 THERAPY Ventilator Normal [facility] Comment on above: Order Comment: Speci men Type: ARTERIAL BLOOD SPECIMEN Performed By: #### A LLBG ####[facility]ORYCLIA [id number] [address] Oxygen (Bld) [Partial pressure] 66 mm Hg Low 85-95 [facility] Comment on above: Order Comment: Speci men Type: ARTERIAL BLOOD SPECIMEN Performed By: #### A LLBG ####[facility]ORYCLIA [id number] [address] Oxygen adjusted to patient's actual temperature (Bld) [Partial pressure] 64.3 mmHg Low 85-95 [facility] Comment on above: Order Comment: Speci men Type: ARTERIAL BLOOD SPECIMEN Performed By: #### A LLBG ####[facility]ORYCLIA [id number] [address] [place] OXYGEN SATURATION, ARTERIAL 95 % Normal 95-98 [facility] Comment on above: Order Comment: Speci men Type: ARTERIAL BLOOD SPECIMEN Performed By: #### A LLBG ####[facility]ORYCLIA [id number] [address] [place] Oxyhemoglobin (BldA) [Mass fraction] 93 % Low 95-98 [facility] Comment on above: Order Comment: Speci men Type: ARTERIAL BLOOD SPECIMEN Performed By: #### A LLBG ####[facility]ORYCLIA [id number] [address] pH (Bld) 7.49 [pH] High 7.35-7.45 [facility] Comment on above: Order Comment: Speci men Type: ARTERIAL BLOOD SPECIMEN Performed By: #### A LLBG ####[facility]ORYCLIA [id number] [address] pH adjusted to patient's actual temperature (Bld) 7.49 High 7.35-7.45 [facility] Comment on above: Order Comment: Speci men Type: ARTERIAL BLOOD SPECIMEN Performed By: #### A LLBG ####[facility]ORYCLIA [id number] [address] Potassium [Moles/Vol] 2.8 mmol/L Low 3.5-5.0 [facility] Comment on above: Order Comment: Speci men Type: ARTERIAL BLOOD SPECIMEN Performed By: #### A LLBG ####[facility]ORYCLIA [id number] [address] Bas Metab 2000 Pnl SerPlon 0 06-04-2021 Sodium [Moles/Vol] 143 mmol/L Normal 136-144 [facility] Comment on above: Order Comment: Speci men Type: BLOOD SPECIMEN Performed By: #### 2 777-1, 63885-7, 40135-1 ####[facility]ORYCLIA [id number] [address] Order Comment: Speci men Type: ARTERIAL BLOOD SPECIMEN Performed By: #### A LLBG ####[facility]ORYCLIA [id number] [address] Basic metabolic 2000 panelon 06-04-2021 Anion gap [Moles/Vol] 11 mmol/L Normal 9-18 [facility] Comment on above: Order Comment: Speci men Type: BLOOD SPECIMEN Performed By: #### 2 777-1, , ####[facility] LABORATORYCLIA [id number] [address] [facility] Calcium [Mass/Vol] 8.5 mg/dL Normal 8.5-10.2 [facility] Comment on above: Order Comment: Speci men Type: BLOOD SPECIMEN Performed By: #### 2 777-1, , ####[facility] LABORATORYCLIA [id number] [address] [facility] Chloride [Moles/Vol] 107 mmol/L High 97-105 [facility] Comment on above: Order Comment: Speci men Type: BLOOD SPECIMEN Performed By: #### 2 777-1, , ####[facility] LABORATORYCLIA [id number] [address] STATES [facility] CO2 [Moles/Vol] 25 mmol/L Normal 22-30 [facility] Comment on above: Order Comment: Speci men Type: BLOOD SPECIMEN Performed By: #### 2 777-1, , ####[facility] LABORATORYCLIA [id number] [address] STATES OF [facility] Creatinine [Mass/Vol] 0.77 mg/dL Normal 0.73-1.22 [facility] Comment on above: Order Comment: Speci men Type: BLOOD SPECIMEN Performed By: #### 2 777-1, , ####[facility] LABORATORYCLIA [id number] [address] [place] GFR/1.73 sq M.predicted [...] #### 2 777-1, , ####[facility] LABORATORYCLIA [id number] [place] [address] [place] Glucose [Mass/Vol] 107 mg/dL High 74-99 [facility] Comment on above: Order Comment: Speci men Type: BLOOD SPECIMEN Result Comment: The [place] Diabetes Association (ADA) provides guidance for cutoff [...] Standards of Medical Care in Diabetes 2016, [place] Diabetes Association. Diabetes Care. 2016.39(Suppl 1). Performed By: #### 2 777-, , ####[facility] [id number] [place] [address] [place] Potassium [Moles/Vol] 3.1 mmol/L Low 3.7-5.1 [facility] Comment on above: Order Comment: Speci men Type: BLOOD SPECIMEN Performed By: #### 2 777-1, , ####[facility] LABORATORYCLIA [id number] [place] [address] [place] Urea nitrogen [Mass/Vol] 19 mg/dL Normal 9-24 [facility] Comment on above: Order Comment: Speci men Type: BLOOD SPECIMEN Performed By: #### 2 777-1, 78636-4, 18996-4 ####[facility] LABORATORYCLIA [id number] [address] CBC panel Auto (Bld)on 06-04 Erythrocyte distribution width (RBC) [Ratio] 15.8 % High 11.5-15.0 [facility] Comment on above: Order Comment: Speci men Type: BLOOD SPECIMEN Performed By: #### 5 8410-2 ####[facility] LABORATORYCLIA [id number] [address] Hematocrit (Bld) [Volume fraction] 36.9 % Low 39.0-51.0 [facility] Comment on above: Order Comment: Speci men Type: BLOOD SPECIMEN Performed By: #### 5 8410-2 ####[facility] LABORATORYCLIA [id number] [address] Hemoglobin (Bld) [Mass/Vol] 11.2 g/dL Low 13.0-17.0 [facility] Comment on above: Order Comment: Speci men Type: BLOOD SPECIMEN Performed By: #### 5 8410-2 ####[facility] LABORATORYCLIA [id number] [address] MCH (RBC) [Entitic mass] 27.3 pg Normal 26.0-34.0 [facility] Comment on above: Order Comment: Speci men Type: BLOOD SPECIMEN Performed By: #### 5 8410-2 ####[facility] LABORATORYCLIA [id number] [address] MCHC (RBC) [Mass/Vol] 30.4 g/dL Low 30.5-36.0 [facility] Comment on above: Order Comment: Speci men Type: BLOOD SPECIMEN Performed By: #### 5 8410-2 ####[facility] LABORATORYCLIA [id number] [address] MCV (RBC) [Entitic vol] 89.8 fL Normal 80.0-100.0 [facility] Comment on above: Order Comment: Speci men Type: BLOOD SPECIMEN Performed By: #### 5 8410-2 ####[facility] LABORATORYCLIA [id number] [address] Nucleated RBC (Bld) [#/Vol] 10*3/uL Normal <0.01 [facility] Comment on above: Order Comment: Speci men Type: BLOOD SPECIMEN Performed By: #### 5 8410-2 ####[facility] LABORATORYCLIA [id number] [address] Platelet mean volume (Bld) [Entitic vol] 10.7 fL Normal 9.0-12.7 [facility] Comment on above: Order Comment: Speci men Type: BLOOD SPECIMEN Performed By: #### 5 8410-2 ####[facility] LABORATORYCLIA [id number] [address] Platelets (Bld) [#/Vol] 174 10*3/uL Normal 150-400 [facility] Comment on above: Order Comment: Speci men Type: BLOOD SPECIMEN Performed By: #### 5 8410-2 ####[facility] LABORATORYCLIA [id number] [address] RBC (Bld) [#/Vol] 4.11 10*6/uL Low 4.20-6.00 [facility] Comment on above: Order Comment: Speci men Type: BLOOD SPECIMEN Performed By: #### 5 8410-2 ####[facility] LABORATORYCLIA [id number] [address] WBC (Bld) [#/Vol] 8.29 10*3/uL Normal 3.70-11.00 [facility] Comment on above: Order Comment: Speci men Type: BLOOD SPECIMEN Performed By: #### 5 8410-2 ####[facility] LABORATORYCLIA [id number] [address] CONSULT PROGon 01-29-2022 CONSULT PROG Normal [facility] [...] #### 2 777-1, , ####[facility] LABORATORYCLIA [id number] [address] [facility] Natriuretic peptide.B prohormone N-Terminal [Mass/Vol] 229 pg/mL High <125 [facility] Comment on above: Order Comment: Speci men Type: BLOOD SPECIMEN Performed By: #### 3 3762-6, 4091-5 ####[facility] LABORATORYCLIA [id number] [address] STATES [facility] Phosphate SerPl-ncon 06-04 Phosphate [Mass/Vol] 2.0 mg/dL Low 2.7-4.8 [facility] Comment on above: Order Comment: Speci men Type: BLOOD SPECIMEN Performed By: #### 2 777-1, , 64560-5 ####[facility] LABORATORYCLIA [id number] [place] [address] [place] Vancomycin random [Mass/Vol] [...] #### 3 3762-6, 4091-5 ####[facility] LABORATORYCLIA [id number] [address] [facility] XR ABDOMEN 1V SUPINEon 06-04 XR ABDOMEN 1V SUPINE Normal [facility] ALLIED HEALTHon 06-03-2021 ALLIED HEALTH Normal [facility] ARTERIAL BLOOD GASESon 06-03 Base excess Calc (Bld) [Moles/Vol] 5 mmol/L High 0-2 [facility] Comment on above: Order Comment: Speci men Type: ARTERIAL BLOOD SPECIMEN Performed By: #### A LLBG ####[facility] LABORATORYCLIA [id number] [address] Body temperature 99.5 [degF] Normal [facility] Comment on above: Order Comment: Speci men Type: ARTERIAL BLOOD SPECIMEN Performed By: #### A LLBG ####[facility] LABORATORYCLIA [id number] [address] [facility] CALCIUM IONIZED, PH CORRECTED 1.18 mmol/L Normal 1.08-1.30 [facility] Comment on above: Order Comment: Speci men Type: ARTERIAL BLOOD SPECIMEN Performed By: #### A LLBG ####[facility] LABORATORYCLIA [id number] [address] Calcium.ionized (BldV) [Mass/Vol] 1.16 mmol/L Normal 1.08-1.30 [facility] Comment on above: Order Comment: Speci men Type: ARTERIAL BLOOD SPECIMEN Performed By: #### A LLBG ####[facility] LABORATORYCLIA [id number] [address] [place] Carboxyhemoglobin (BldA) [Mass fraction] 1.2 % Normal 0.0-2.0 [facility] Comment on above: Order Comment: Speci men Type: ARTERIAL BLOOD SPECIMEN Result Comment: Carb oxyhemoglobin Reference Range for Smokers: 2.0-8.0% Performed By: #### A LLBG ####[facility] LABORATORYCLIA [id number] [address] [place] CO2 (Bld) [Partial pressure] 45 mm Hg Normal 36-46 [facility] Comment on above: Order Comment: Speci men Type: ARTERIAL BLOOD SPECIMEN Performed By: #### A LLBG ####[facility]ORATORYCLIA [id number] [address] CO2 [Moles/Vol] 26.9 mmol/L Normal 22-28 [facility] Comment on above: Order Comment: Speci men Type: ARTERIAL BLOOD SPECIMEN Performed By: #### A LLBG ####[facility]ORATORYCLIA [id number] [address] CO2 adjusted to patient's actual temperature (Bld) [Partial pressure] 47 mmHg High 36-46 [facility] Comment on above: Order Comment: Speci men Type: ARTERIAL BLOOD SPECIMEN Performed By: #### A LLBG ####[facility]ORATORYCLIA [id number] [address] Glucose [Mass/Vol] 141 mg/dL High 60-105 [facility] Comment on above: Order Comment: Speci men Type: ARTERIAL BLOOD SPECIMEN Performed By: #### A LLBG ####[facility]ORATORYCLIA [id number] [address] HCO3 (Bld) [Moles/Vol] 30 mmol/L High 22-26 [facility] Comment on above: Order Comment: Speci men Type: ARTERIAL BLOOD SPECIMEN Performed By: #### A LLBG ####[facility]ORATORYCLIA [id number] [address] [place] Hematocrit (Bld) [Volume fraction] 35.8 % Low 39.0-51.0 [facility] Comment on above: Order Comment: Speci men Type: ARTERIAL BLOOD SPECIMEN Performed By: #### A LLBG ####[facility]ORATORYCLIA [id number] [address] Hemoglobin (Bld) [Mass/Vol] 11.6 g/dL Low 13.0-17.0 [facility] Comment on above: Order Comment: Speci men Type: ARTERIAL BLOOD SPECIMEN Performed By: #### A LLBG ####[facility] LABORATORYCLIA [id number] [place], [place] [id number] [place] [address] [facility] Methemoglobin (Bld) [Mass fraction] % Normal 0.0-1.5 [facility] Comment on above: Order Comment: Speci men Type: ARTERIAL BLOOD SPECIMEN Performed By: #### A LLBG ####[facility]ORATORYCLIA [id number] [address] O2 THERAPY Ventilator Normal [facility] Comment on above: Order Comment: Speci men Type: ARTERIAL BLOOD SPECIMEN Performed By: #### A LLBG ####[facility]ORATORYCLIA [id number] [address] Oxygen (Bld) [Partial pressure] 69 mm Hg Low 85-95 [facility] Comment on above: Order Comment: Speci men Type: ARTERIAL BLOOD SPECIMEN Performed By: #### A LLBG ####[facility]ORATORYCLIA [id number] [address] Oxygen adjusted to patient's actual temperature (Bld) [Partial pressure] 70.8 mmHg Low 85-95 [facility] Comment on above: Order Comment: Speci men Type: ARTERIAL BLOOD SPECIMEN Performed By: #### A LLBG ####[facility]ORATORYCLIA [id number] [address] OXYGEN SATURATION, ARTERIAL 94 % Low 95-98 [facility] Comment on above: Order Comment: Speci men Type: ARTERIAL BLOOD SPECIMEN Performed By: #### A LLBG ####[facility]ORATORYCLIA [id number] [address] Oxyhemoglobin (BldA) [Mass fraction] 93 % Low 95-98 [facility] Comment on above: Order Comment: Speci men Type: ARTERIAL BLOOD SPECIMEN Performed By: #### A LLBG ####[facility] LABORATORYCLIA [id number] [address] [place] pH (Bld) 7.43 [pH] Normal 7.35-7.45 [facility] Comment on above: Order Comment: Speci men Type: ARTERIAL BLOOD SPECIMEN Performed By: #### A LLBG ####[facility] LABORATORYCLIA [id number] [address] pH adjusted to patient's actual temperature (Bld) 7.43 Normal 7.35-7.45 [facility] Comment on above: Order Comment: Speci men Type: ARTERIAL BLOOD SPECIMEN Performed By: #### A LLBG ####[facility] LABORATORYCLIA [id number] [address] Potassium [Moles/Vol] 3.1 mmol/L Low 3.5-5.0 [facility] Comment on above: Order Comment: Speci men Type: ARTERIAL BLOOD SPECIMEN Performed By: #### A LLBG ####[facility] LABORATORYCLIA [id number] [address] Sodium [Moles/Vol] 145 mmol/L High 136-144 [facility] Comment on above: Order Comment: Speci men Type: ARTERIAL BLOOD SPECIMEN Performed By: #### A LLBG ####[facility] LABORATORYCLIA [id number] [address] [facility] ASPERGILLUS GALACTOMANNAN SE RUMon 06-03-2021 Galactomannan Ag IA Ql Negative Normal NEGAT [facility] Comment on above: Order Comment: [...] is suspected. Performed By: #### A SGALS ####[facility] LABCLIA [id number] [place] [address] [place] Galactomannan Ag IA Qn <0.50 Normal [facility] Comment on above: Order Comment: Speci men Type: BLOOD SPECIMEN Result Comment: Inde x Values are Interpreted as Follows:Negative specimens <0.50Positive specimens >=0.50 Performed By: #### A SGALS ####[facility] LABCLIA [id number] [address] [place] [address] [place] Basic metabolic 2000 panelon 06-03-2021 Anion gap [Moles/Vol] 8 mmol/L Low 9-18 [facility] Comment on above: Order Comment: Speci men Type: BLOOD SPECIMEN Performed By: #### 1 9123-9, 2776-05, 99862-5 ####[facility] LABORATORYCLIA [id number] [place] [address] [place] Calcium [Mass/Vol] 8.0 mg/dL Low 8.5-10.2 [facility] Comment on above: Order Comment: Speci men Type: BLOOD SPECIMEN Performed By: #### 1 9123-9, 2776-05, 08630-4 ####[facility] LABORATORYCLIA [id number] [address] [place] Chloride [Moles/Vol] 110 mmol/L High 97-105 [facility] Comment on above: Order Comment: Speci men Type: BLOOD SPECIMEN Performed By: #### 1 9123-9, 2776-05, ####[facility]ORATORYCLIA [id number] [place] [address] [place] CO2 [Moles/Vol] 28 mmol/L Normal 22-30 [facility] Comment on above: Order Comment: Speci men Type: BLOOD SPECIMEN Performed By: #### 1 9123-9, 2776-05, 27790-2 ####[facility]ORATORYCLIA [id number] [place] [address] [place] Creatinine [Mass/Vol] 0.75 mg/dL Normal 0.73-1.22 [facility] Comment on above: Order Comment: Speci men Type: BLOOD SPECIMEN Performed By: #### 1 9123-9, 2776-05, 79542-4 ####[facility] [id number] [place] [address] [place] GFR/1.73 sq M.predicted [...] GFR. Performed By: #### 1 9123-9, 2777-1, 25215-5 ####[facility] [id number] [place] [id number] [place] Glucose [Mass/Vol] 141 mg/dL High 74-99 [facility] Comment on above: Order Comment: Speci men Type: BLOOD SPECIMEN Result Comment: The [place] Diabetes Association (ADA) provides guidance for cutoff [...] Standards of Medical Care in Diabetes 2016, [place] Diabetes Association. Diabetes Care. 2016.39(Suppl 1). Performed By: #### 1 9123-9, 2777-1, 37651-6 ####[facility] LABORATORYIA [id number] [place] [id number] [place] Potassium [Moles/Vol] 3.3 mmol/L Low 3.7-5.1 [facility] Comment on above: Order Comment: Speci men Type: BLOOD SPECIMEN Performed By: #### 1 9123-9, 2777-1, 28650-9 ####[facility] LABORATORYCLIA [id number] [address] Sodium [Moles/Vol] 146 mmol/L High 136-144 [facility] Comment on above: Order Comment: Speci men Type: BLOOD SPECIMEN Performed By: #### 1 9123-9, 2777-, 60132-9 ####[facility] LABORATORYCLIA [id number] [address] Urea nitrogen [Mass/Vol] 10 mg/dL Normal 9-24 [facility] Comment on above: Order Comment: Speci men Type: BLOOD SPECIMEN Performed By: #### 1 9123-9, 2777, 95828-8 ####[facility] LABORATORYCLIA [id number] [address] CASE MANAGEMon 06-03-2021 CASE MANAGEM Normal [facility] CBC panel Auto (Bld)on 06-03 Erythrocyte distribution width (RBC) [Ratio] 15.6 % High 11.5-15.0 [facility] Comment on above: Order Comment: Speci men Type: BLOOD SPECIMEN Performed By: #### 5 8410-2 ####[facility] LABORATORYCLIA [id number] [address] Hematocrit (Bld) [Volume fraction] 36.9 % Low 39.0-51.0 [facility] Comment on above: Order Comment: Speci men Type: BLOOD SPECIMEN Performed By: #### 5 8410-2 ####[facility] LABORATORYCLIA [id number] [address] Hemoglobin (Bld) [Mass/Vol] 11.1 g/dL Low 13.0-17.0 [facility] Comment on above: Order Comment: Speci men Type: BLOOD SPECIMEN Performed By: #### 5 8410-2 ####[facility] LABORATORYCLIA [id number] [address] MCH (RBC) [Entitic mass] 27.0 pg Normal 26.0-34.0 [facility] Comment on above: Order Comment: Speci men Type: BLOOD SPECIMEN Performed By: #### 5 8410-2 ####[facility] LABORATORYCLIA [id number] [address] MCHC (RBC) [Mass/Vol] 30.1 g/dL Low 30.5-36.0 [facility] Comment on above: Order Comment: Speci men Type: BLOOD SPECIMEN Performed By: #### 5 8410-2 ####[facility] LABORATORYCLIA [id number] [address] MCV (RBC) [Entitic vol] 89.8 fL Normal 80.0-100.0 [facility] Comment on above: Order Comment: Speci men Type: BLOOD SPECIMEN Performed By: #### 5 8410-2 ####[facility] LABORATORYCLIA [id number] [address] Nucleated RBC (Bld) [#/Vol] 10*3/uL Normal <0.01 [facility] Comment on above: Order Comment: Speci men Type: BLOOD SPECIMEN Performed By: #### 5 8410-2 ####[facility] LABORATORYCLIA [id number] [address] Platelet mean volume (Bld) [Entitic vol] 10.5 fL Normal 9.0-12.7 [facility] Comment on above: Order Comment: Speci men Type: BLOOD SPECIMEN Performed By: #### 5 8410-2 ####[facility] LABORATORYCLIA [id number] [address] Platelets (Bld) [#/Vol] 196 10*3/uL Normal 150-400 [facility] Comment on above: Order Comment: Speci men Type: BLOOD SPECIMEN Performed By: #### 5 8410-2 ####[facility] LABORATORYCLIA [id number] [address] [place] RBC (Bld) [#/Vol] 4.11 10*6/uL Low 4.20-6.00 [facility] Comment on above: Order Comment: Speci men Type: BLOOD SPECIMEN Performed By: #### 5 8410-2 ####[facility] LABORATORYCLIA [id number] [address] [place] WBC (Bld) [#/Vol] 8.18 10*3/uL Normal 3.70-11.00 [facility] Comment on above: Order Comment: Speci men Type: BLOOD SPECIMEN Performed By: #### 5 8410-2 ####[facility] LABORATORYCLIA [id number] [address] OF [facility] CONSULTon 06-03-2021 CONSULT Normal [facility] CONSULT PROGon 06-03-2021 CONSULT PROG Normal [facility] Gas and Carbon monoxide pane l (BldV)on 06-03-2021 Base excess Calc (BldV) [Moles/Vol] 1.4 mmol/L Normal 0-2 [facility] Comment on above: Order Comment: Speci men Type: VENOUS BLOOD SPECIMEN Performed By: #### 2 4344-4 ####[facility] LABORATORYCLIA [id number] [address] Body temperature 98.42 [degF] Normal [facility] Comment on above: Order Comment: Speci men Type: VENOUS BLOOD SPECIMEN Performed By: #### 2 4344-4 ####[facility] LABORATORYCLIA [id number] [address] STATES OF [facility] CALCIUM IONIZED, PH CORRECTED 1.09 mmol/L Normal 1.08-1.30 [facility] Comment on above: Order Comment: Speci men Type: VENOUS BLOOD SPECIMEN Performed By: #### 2 4344-4 ####[facility] LABORATORYCLIA [id number] [address] [place] Calcium.ionized (BldV) [Mass/Vol] 1.12 mmol/L Normal 1.08-1.30 [facility] Comment on above: Order Comment: Speci men Type: VENOUS BLOOD SPECIMEN Performed By: #### 2 4344-4 ####[facility]ORYCLIA [id number] [address] Carboxyhemoglobin (BldV) [Mass fraction] 1.7 % Normal 0.0-2.0 [facility] Comment on above: Order Comment: Speci men Type: VENOUS BLOOD SPECIMEN Result Comment: Carb oxyhemoglobin Reference Range for Smokers: 2.0-8.0% Performed By: #### 2 4344-4 ####[facility]ORYCLIA [id number] [address] CO2 (BldV) [Partial pressure] 50 mm[Hg] Normal 42-55 [facility] Comment on above: Order Comment: Speci men Type: VENOUS BLOOD SPECIMEN Performed By: #### 2 4344-4 ####[facility]ORYCLIA [id number] [address] CO2 [Moles/Vol] 24.9 mmol/L Low 25-29 [facility] Comment on above: Order Comment: Speci men Type: VENOUS BLOOD SPECIMEN Performed By: #### 2 4344-4 ####[facility]ORYCLIA [id number] [address] CO2 adjusted to patient's actual temperature (BldV) [Partial pressure] 50 mmHg Normal 42-55 [facility] Comment on above: Order Comment: Speci men Type: VENOUS BLOOD SPECIMEN Performed By: #### 2 4344-4 ####[facility]ORYCLIA [id number] [address] FIO2 30 % Normal [facility] Comment on above: Order Comment: Speci men Type: VENOUS BLOOD SPECIMEN Performed By: #### 2 4344-4 ####[facility]ORYCLIA [id number] [address] Glucose [Mass/Vol] 191 mg/dL High 60-105 [facility] Comment on above: Order Comment: Speci men Type: VENOUS BLOOD SPECIMEN Performed By: #### 2 4344-4 ####[facility]ATORYCLIA [id number] [address] [place] HCO3 (Bld) [Moles/Vol] 27.1 mmol/L Normal 24-28 [facility] Comment on above: Order Comment: Speci men Type: VENOUS BLOOD SPECIMEN Performed By: #### 2 4344-4 ####[facility]ORYCLIA [id number] [address] Hematocrit (Bld) [Volume fraction] 36.2 % Low 39.0-51.0 [facility] Comment on above: Order Comment: Speci men Type: VENOUS BLOOD SPECIMEN Performed By: #### 2 4344-4 ####[facility]ORYCLIA [id number] [address] OF [facility] Hemoglobin (Bld) [Mass/Vol] 11.8 g/dL Low 13.0-17.0 [facility] Comment on above: Order Comment: Speci men Type: VENOUS BLOOD SPECIMEN Performed By: #### 2 4344-4 ####[facility]ORYCLIA [id number] [address] OF [place] INHALED TIDAL VOLUME (ML) 530 Normal [facility] Comment on above: Order Comment: Speci men Type: VENOUS BLOOD SPECIMEN Performed By: #### 2 4344-4 ####[facility]ORATORYCLIA [id number] [address] [place] Methemoglobin (Bld) [Mass fraction] % Normal 0.0-1.5 [facility] Comment on above: Order Comment: Speci men Type: VENOUS BLOOD SPECIMEN Performed By: #### 2 4344-4 ####[facility]ORATORYCLIA [id number] [address] OF [place] O2 THERAPY Ventilator Normal [facility] Comment on above: Order Comment: Speci men Type: VENOUS BLOOD SPECIMEN Performed By: #### 2 4344-4 ####[facility]ATORYCLIA [id number] [address] Oxygen (BldV) [Partial pressure] 69 mm[Hg] High 35-45 [facility] Comment on above: Order Comment: Speci men Type: VENOUS BLOOD SPECIMEN Performed By: #### 2 4344-4 ####[facility]ATORYCLIA [id number] [address] Oxygen adjusted to patient's actual temperature (BldV) [Partial pressure] 68.8 mmHg High 35-45 [facility] Comment on above: Order Comment: Speci men Type: VENOUS BLOOD SPECIMEN Performed By: #### 2 4344-4 ####[facility]ORYCLIA [id number] [address] Oxygen saturation in Blood 92.4 % High 60-85 [facility] Comment on above: Order Comment: Speci men Type: VENOUS BLOOD SPECIMEN Performed By: #### 2 4344-4 ####[facility]ORYCLIA [id number] [address] Oxyhemoglobin (BldV) [Mass fraction] 90 % High 60-85 [facility] Comment on above: Order Comment: Speci men Type: VENOUS BLOOD SPECIMEN Performed By: #### 2 4344-4 ####[facility]ORYCLIA [id number] [address] PEEP/CPAP 8 cmH2O Normal [facility] Comment on above: Order Comment: Speci men Type: VENOUS BLOOD SPECIMEN Performed By: #### 2 4344-4 ####[facility]ORYCLIA [id number] [address] pH (BldV) 7.35 [pH] Normal 7.32-7.42 [facility] Comment on above: Order Comment: Speci men Type: VENOUS BLOOD SPECIMEN Performed By: #### 2 4344-4 ####[facility]ORYCLIA [id number] [address] pH adjusted to patient's actual temperature (BldV) 7.35 Normal 7.32-7.42 [facility] Comment on above: Order Comment: Speci men Type: VENOUS BLOOD SPECIMEN Performed By: #### 2 4344-4 ####[facility]ORATORYCLIA [id number] [address] Potassium [Moles/Vol] 3.6 mmol/L Normal 3.5-5.0 [facility] Comment on above: Order Comment: Speci men Type: VENOUS BLOOD SPECIMEN Performed By: #### 2 4344-4 ####[facility]ORATORYCLIA [id number] [address] SET VENTILATOR RESPIRATORY RATE (BPM) 18 BPM Normal [facility] Comment on above: Order Comment: Speci men Type: VENOUS BLOOD SPECIMEN Performed By: #### 2 4344-4 ####[facility]ORATORYCLIA [id number] [address] Sodium [Moles/Vol] 141 mmol/L Normal 136-144 [facility] Comment on above: Order Comment: Speci men Type: VENOUS BLOOD SPECIMEN Performed By: #### 2 4344-4 ####[facility]ORATORYCLIA [id number] [address] OF [facility] HIV 1+2 Ab IA Qlon 2 HIV 1 and 2 Ab IA.rapid Nom Normal [facility] Comment on above: Order Comment: Speci men Type: BLOOD SPECIMEN Result Comment: Test not indicated. Performed By: #### 3 1201-7, TOXMG ####[facility]ORATORYCLIA [id number] [address] HIV 1+2 Ab+HIV1 p24 Ag IA Ql Non-Reactive Normal Nonreactive [facility] Comment on above: Order Comment: Speci men Type: BLOOD SPECIMEN Result Comment: [place] Rev. Code 3701.243(E): This information has been [...] #### 3 1201-7, TOXMG ####[facility]ORATORYCLIA [id number] [address] HIVINT Normal [facility] Comment on above: Order Comment: Speci men Type: BLOOD SPECIMEN Result Comment: No e vidence of HIV-1 or HIV-2 infection. Should recent infection be suspected, repeat testing may be considered 2-3 weeks after this draw. Performed By: #### 3 1201-7, TOXMG ####[facility]ORATORYCLIA [id number] [address] [place] Magnesium SerPl-mCncon 06-03 Magnesium [Mass/Vol] 1.9 mg/dL Normal 1.7-2.3 [facility] Comment on above: Order Comment: Speci men Type: BLOOD SPECIMEN Performed By: #### 1 9123-9, 2777-1, 37259-8 ####[facility]ORATORYCLIA [id number] [address] [place] NUTRITIONon 06-03-2021 NUTRITION Normal [facility] Phosphate SerPl-mCncon 06-03 Phosphate [Mass/Vol] 1.9 mg/dL Low 2.7-4.8 [facility] Comment on above: Order Comment: Speci men Type: BLOOD SPECIMEN Performed By: #### 1 9123-9, 2777-1, 09418-8 ####[facility]ORATORYCLIA [id number] [address] TOXOPLASMOSIS IGM AND IGG AB on [...] #### 3 1201-7, TOXMG ####[facility]ORATORYCLIA [id number] [address] TOXO IGM QUAL Negative Normal Negative [facility] Comment on above: Order Comment: Speci men Type: BLOOD SPECIMEN Result Comment: No s erological evidence of recent exposure to Toxoplasma gondii.Negative <0.9 IndexEquivocal 0.9-0.99 IndexPositive >=1.0 Index Performed By: #### 3 1201-7, TOXMG ####[facility]ORATORYCLIA [id number] [address] STATES OF [facility] US DVT LOWER BILon US DVT [...] By: #### A LLBG ####[facility]ORATORYCLIA [id number] [address] Body temperature 99.32 [degF] Normal [facility] Comment on above: Order Comment: Speci men Type: ARTERIAL BLOOD SPECIMEN Performed By: #### A LLBG ####[facility]ORATORYCLIA [id number] [address] CALCIUM IONIZED, PH CORRECTED 1.15 mmol/L Normal 1.08-1.30 [facility] Comment on above: Order Comment: Speci men Type: ARTERIAL BLOOD SPECIMEN Performed By: #### A LLBG ####[facility]ORATORYCLIA [id number] [address] STATES [place] [facility] Calcium.ionized (BldV) [Mass/Vol] 1.13 mmol/L Normal 1.08-1.30 [facility] Comment on above: Order Comment: Speci men Type: ARTERIAL BLOOD SPECIMEN Performed By: #### A LLBG ####[facility]ORYCLIA [id number] [address] Carboxyhemoglobin (BldA) [Mass fraction] 1.4 % Normal 0.0-2.0 [facility] Comment on above: Order Comment: Speci men Type: ARTERIAL BLOOD SPECIMEN Result Comment: Carb oxyhemoglobin Reference Range for Smokers: 2.0-8.0% Performed By: #### A LLBG ####[facility]ORYCLIA [id number] [address] CO2 (Bld) [Partial pressure] 39 mm Hg Normal 36-46 [facility] Comment on above: Order Comment: Speci men Type: ARTERIAL BLOOD SPECIMEN Performed By: #### A LLBG ####[facility]ORYCLIA [id number] [address] STATES [place] [facility] CO2 [Moles/Vol] 23.4 mmol/L Normal 22-28 [facility] Comment on above: Order Comment: Speci men Type: ARTERIAL BLOOD SPECIMEN Performed By: #### A LLBG ####[facility]ORYCLIA [id number] [address] OF [facility] CO2 adjusted to patient's actual temperature (Bld) [Partial pressure] 40 mmHg Normal 36-46 [facility] Comment on above: Order Comment: Speci men Type: ARTERIAL BLOOD SPECIMEN Performed By: #### A LLBG ####[facility]ORYCLIA [id number] [address] [place] Glucose [Mass/Vol] 156 mg/dL High 60-105 [facility] Comment on above: Order Comment: Speci men Type: ARTERIAL BLOOD SPECIMEN Performed By: #### A LLBG ####[facility]ORYCLIA [id number] [address] OF [place] HCO3 (Bld) [Moles/Vol] 26 mmol/L Normal 22-26 [facility] Comment on above: Order Comment: Speci men Type: ARTERIAL BLOOD SPECIMEN Performed By: #### A LLBG ####[facility]ORYCLIA [id number] [address] Hematocrit (Bld) [Volume fraction] 33.9 % Low 39.0-51.0 [facility] Comment on above: Order Comment: Speci men Type: ARTERIAL BLOOD SPECIMEN Performed By: #### A LLBG ####[facility]ORYCLIA [id number] [address] Hemoglobin (Bld) [Mass/Vol] 11.0 g/dL Low 13.0-17.0 [facility] Comment on above: Order Comment: Speci men Type: ARTERIAL BLOOD SPECIMEN Performed By: #### A LLBG ####[facility]ORYCLIA [id number] [address] Methemoglobin (Bld) [Mass fraction] % Normal 0.0-1.5 [facility] Comment on above: Order Comment: Speci men Type: ARTERIAL BLOOD SPECIMEN Performed By: #### A LLBG ####[facility]ORYCLIA [id number] [address] O2 THERAPY Ventilator Normal [facility] Comment on above: Order Comment: Speci men Type: ARTERIAL BLOOD SPECIMEN Performed By: #### A LLBG ####[facility]ORYCLIA [id number] [address] Oxygen (Bld) [Partial pressure] 70 mm Hg Low 85-95 [facility] Comment on above: Order Comment: Speci men Type: ARTERIAL BLOOD SPECIMEN Performed By: #### A LLBG ####[facility]ORYCLIA [id number] [address] Oxygen adjusted to patient's actual temperature (Bld) [Partial pressure] 72.2 mmHg Low 85-95 [facility] Comment on above: Order Comment: Speci men Type: ARTERIAL BLOOD SPECIMEN Performed By: #### A LLBG ####[facility]ORYCLIA [id number] [address] OXYGEN SATURATION, ARTERIAL 96 % Normal 95-98 [facility] Comment on above: Order Comment: Speci men Type: ARTERIAL BLOOD SPECIMEN Performed By: #### A LLBG ####[facility]ORYCLIA [id number] [address] Oxyhemoglobin (BldA) [Mass fraction] 94 % Low 95-98 [facility] Comment on above: Order Comment: Speci men Type: ARTERIAL BLOOD SPECIMEN Performed By: #### A LLBG ####[facility]ORYCLIA [id number] [address] pH (Bld) 7.43 [pH] Normal 7.35-7.45 [facility] Comment on above: Order Comment: Speci men Type: ARTERIAL BLOOD SPECIMEN Performed By: #### A LLBG ####[facility]ORATORYCLIA [id number] [address] pH adjusted to patient's actual temperature (Bld) 7.42 Normal 7.35-7.45 [facility] Comment on above: Order Comment: Speci men Type: ARTERIAL BLOOD SPECIMEN Performed By: #### A LLBG ####[facility]ORYCLIA [id number] [address] Potassium [Moles/Vol] 2.6 mmol/L Low 3.5-5.0 [facility] Comment on above: Order Comment: Speci men Type: ARTERIAL BLOOD SPECIMEN Performed By: #### A LLBG ####[facility]ORYCLIA [id number] [address] Sodium [Moles/Vol] 142 mmol/L Normal 136-144 [facility] Comment on above: Order Comment: Speci men Type: ARTERIAL BLOOD SPECIMEN Performed By: #### A LLBG ####[facility]ORYCLIA [id number] [address] Ammonia Plas-sCncon 01-27-20 22 Ammonia (P) [Moles/Vol] 20 umol/L Normal 16-60 [facility] Comment on above: Order Comment: Speci men Type: BLOOD SPECIMEN Performed By: #### 1 6362-6 ####[facility] LABORATORYCLIA [id number] [address] [place] Bacteria CSF Culton 06-02-19 22 Bacteria identified Cx Nom (CSF) CULTURE, CSF: No growth 14 days GRAM STAIN: No organisms seen Rare Polymorphonuclear leukocytes Gram stain performed on cytospun specimen. Normal [facility] Comment on above: Performed By: #### 6 06-4 ####[facility]ORATORYCLIA [id number] [address] [place] Basic metabolic 2000 panelon 06-02-2021 Anion gap [Moles/Vol] 10 mmol/L Normal 9-18 [facility] Comment on above: Order Comment: Speci men Type: BLOOD SPECIMEN Performed By: #### 2 4321-2, , 2776-05 ####[facility]ORATORYCLIA [id number] [address] [place] Calcium [Mass/Vol] 8.1 mg/dL Low 8.5-10.2 [facility] Comment on above: Order Comment: Speci men Type: BLOOD SPECIMEN Performed By: #### 2 4321-2, , 2776-05 ####[facility]ORATORYCLIA [id number] [address] [place] Chloride [Moles/Vol] 108 mmol/L High 97-105 [facility] Comment on above: Order Comment: Speci men Type: BLOOD SPECIMEN Performed By: #### 2 4321-2, , 2776-05 ####[facility]ATORYCLIA [id number] [address] [place] CO2 [Moles/Vol] 24 mmol/L Normal 22-30 [facility] Comment on above: Order Comment: Speci men Type: BLOOD SPECIMEN Performed By: #### 2 4321-2, , 2776-05 ####[facility]ORATORYCLIA [id number] [place] [address] [place] Creatinine [Mass/Vol] 0.78 mg/dL Normal 0.73-1.22 [facility] Comment on above: Order Comment: Speci men Type: BLOOD SPECIMEN Performed By: #### 2 4321-2, , 2776-05 ####[facility]ITALCLIA [id number] [place] [id number] [facility] [place] GFR/1.73 sq M.predicted MDRD (S/P/Bld) [Vol rate/Area] mL/min/{1.73_m2} Normal [facility] Comment on above: Order Comment: Spec [...] Performed By: #### 2 1-2, , 2776-05 ####[facility]PITALIA [id number] [place] [address] [place] Glucose [Mass/Vol] 162 mg/dL High 74-99 [facility] Comment on above: Order Comment: [facility]: BLOOD SPECIMEN Result Comment: The [place] Diabetes Association (ADA) provides guidance for cutoff [...] Standards of Medical Care in Diabetes 2016, [place] Diabetes Association. Diabetes Care. 2016.39(Suppl 1). Performed By: #### 2 4321-2, , 2776-05 ####[facility]ORATORYCLIA [id number] [address] OF [facility] Potassium [Moles/Vol] 2.7 mmol/L Low 3.7-5.1 [facility] Comment on above: Order Comment: Speci men Type: BLOOD SPECIMEN Performed By: #### 2 4321-2, , 2776-05 ####[facility]ORATORYCLIA [id number] [address] Sodium [Moles/Vol] 142 mmol/L Normal 136-144 [facility] Comment on above: Order Comment: Speci men Type: BLOOD SPECIMEN Performed By: #### 2 4321-2, , 2776-05 ####[facility]ORATORYCLIA [id number] [address] Urea nitrogen [Mass/Vol] 12 mg/dL Normal 9-24 [facility] Comment on above: Order Comment: Speci men Type: BLOOD SPECIMEN Performed By: #### 2 4321-2, , 2776-05 ####[facility]ORATORYCLIA [id number] [address] CBC panel Auto (Bld)on 06-02 Erythrocyte distribution width (RBC) [Ratio] 15.0 % Normal 11.5-15.0 [facility] Comment on above: Order Comment: Speci men Type: BLOOD SPECIMEN Performed By: #### 5 8410-2 ####[facility]ORATORYCLIA [id number] [address] Hematocrit (Bld) [Volume fraction] 34.3 % Low 39.0-51.0 [facility] Comment on above: Order Comment: Speci men Type: BLOOD SPECIMEN Performed By: #### 5 8410-2 ####[facility]ATORYCLIA [id number] [address] Hemoglobin (Bld) [Mass/Vol] 10.3 g/dL Low 13.0-17.0 [facility] Comment on above: Order Comment: Speci men Type: BLOOD SPECIMEN Performed By: #### 5 8410-2 ####[facility]ORATORYCLIA [id number] [address] MCH (RBC) [Entitic mass] 27.0 pg Normal 26.0-34.0 [facility] Comment on above: Order Comment: Speci men Type: BLOOD SPECIMEN Performed By: #### 5 8410-2 ####[facility]ATORYCLIA [id number] [address] MCHC (RBC) [Mass/Vol] 30.0 g/dL Low 30.5-36.0 [facility] Comment on above: Order Comment: Speci men Type: BLOOD SPECIMEN Performed By: #### 5 8410-2 ####[facility]ATORYCLIA [id number] [address] MCV (RBC) [Entitic vol] 90.0 fL Normal 80.0-100.0 [facility] Comment on above: Order Comment: Speci men Type: BLOOD SPECIMEN Performed By: #### 5 8410-2 ####[facility]ORATORYCLIA [id number] [address] Nucleated RBC (Bld) [#/Vol] 10*3/uL Normal <0.01 [facility] Comment on above: Order Comment: Speci men Type: BLOOD SPECIMEN Performed By: #### 5 8410-2 ####[facility]ORATORYCLIA [id number] [address] Platelet mean volume (Bld) [Entitic vol] 10.2 fL Normal 9.0-12.7 [facility] Comment on above: Order Comment: Speci men Type: BLOOD SPECIMEN Performed By: #### 5 8410-2 ####[facility]ORYCLIA [id number] [address] Platelets (Bld) [#/Vol] 194 10*3/uL Normal 150-400 [facility] Comment on above: Order Comment: Speci men Type: BLOOD SPECIMEN Performed By: #### 5 8410-2 ####[facility]ORYCLIA [id number] [address] OF [facility] RBC (Bld) [#/Vol] 3.81 10*6/uL Low 4.20-6.00 [facility] Comment on above: Order Comment: Speci men Type: BLOOD SPECIMEN Performed By: #### 5 8410-2 ####[facility]ATORYCLIA [id number] [address] WBC (Bld) [#/Vol] 9.22 10*3/uL Normal 3.70-11.00 [facility] Comment on above: Order Comment: Speci men Type: BLOOD SPECIMEN Performed By: #### 5 8410-2 ####[facility]ORATORYCLIA [id number] [address] CONSULT PROGon 06-02-2021 CONSULT PROG Normal [facility] CSF MANUAL DIFFon 06-02-2021 DIF TTL, CSF 25 cells counted Normal [facility] Comment on above: Order Comment: Speci men Type: CEREBROSPINAL FLUID Performed By: #### 3 4563-7, [id number], [id number] ####[facility]ORYCLIA [id number] [address] [place] LYMPH%, CSF 4 % Low 50-90 [facility] Comment on above: Order Comment: Speci men Type: CEREBROSPINAL FLUID Performed By: #### 3 4563-7, [id number], [id number] ####[facility]ORYCLIA [id number] [address] [place] MACRO%, CSF 4 % High <1 [facility] Comment on above: Order Comment: Speci men Type: CEREBROSPINAL FLUID Performed By: #### 3 4563-7, [id number], [id number] ####[facility]ORYCLIA [id number] [address] MONO%, CSF 20 % Normal 10-50 [facility] Comment on above: Order Comment: Speci men Type: CEREBROSPINAL FLUID Performed By: #### 3 4563-7, [id number], [id number] ####[facility]ORYCLIA [id number] [address] NEUT%, CSF 72 % High 0-3 [facility] Comment on above: Order Comment: Speci men Type: CEREBROSPINAL FLUID Performed By: #### 3 4563-7, [id number], [id number] ####[facility]ORYCLIA [id number] [address] CSF PATHOLOGIST INTERP (LAB REFLEX ORDER-NO BILL)on 06-02-2021 CSF STAFF REVIEW Negative Normal [facility] Comment on above: Order Comment: Speci men Type: CEREBROSPINAL FLUID Performed By: #### 3 4563-7, [id number], [id number] ####[facility]ORYCLIA [id number] [address] Pathologist name Reviewed by Amador Stevens MD [facility] Comment on above: Order Comment: Speci men Type: CEREBROSPINAL FLUID Performed By: #### 3 4563-7, [id number], [id number] ####[facility]ORYCLIA [id number] [address] Cell count panel (CSF)on Clarity (CSF) Clear Normal Clear [facility] Comment on above: Order Comment: Speci men Type: CEREBROSPINAL FLUID Performed By: #### 3 4563-7, [id number], [id number] ####[facility]ORYCLIA [id number] [address] Clarity (Unsp spec) Not Indicated Normal Clear [facility] Comment on above: Order Comment: Speci men Type: CEREBROSPINAL FLUID Performed By: #### 3 4563-7, [id number], [id number] ####[facility]ORATORYCLIA [id number] [address] Color (CSF) Colorless Normal Colorless [facility] Comment on above: Order Comment: Speci men Type: CEREBROSPINAL FLUID Performed By: #### 3 4563-7, [id number], [id number] ####[facility]ORYCLIA [id number] [address] Color (Spun CSF) Not Indicated Normal Colorless [facility] Comment on above: Order Comment: Speci men Type: CEREBROSPINAL FLUID Performed By: #### 3 4563-7, [id number], [id number] ####[facility]ORYCLIA [id number] [address] CSF TUBE NUMBER Sterile Container Normal [facility] Comment on above: Order Comment: Speci men Type: CEREBROSPINAL FLUID Performed By: #### 3 4563-7, [id number], [id number] ####[facility]ORATORYCLIA [id number] [address] RBC Manual cnt (CSF) [#/Vol] 117 cells/uL High 0-5 [facility] Comment on above: Order Comment: Speci men Type: CEREBROSPINAL FLUID Performed By: #### 3 4563-7, [id number], WEC1182 ####[facility]ORYCLIA [id number] [address] WBC Manual cnt (CSF) [#/Vol] 1 cells/uL Normal 0-5 [facility] Comment on above: Order Comment: Speci men Type: CEREBROSPINAL FLUID Performed By: #### 3 4563-7, [id number], [id number] ####[facility]ATORYCLIA [id number] [address] [place] Glucose CSF-mCncon 2 Glucose [...] Glucose HK (GLUC3) [package insert V 12.0 Cymraes]. [employer], [place], [place]. September 2015. 2. Michelle Moore, Loki HGarfield (2015). Chapter 7: Glucose and Lactate. Marianela Alcocer al.(eds.), Cerebrospinal Fluid in Clinical Neurology. Saunders: [employer]. Performed By: #### 2 342-4 ####[facility] LABORATORYCLIA [id number] [address] HEPATIC FUNCTION PNLon 06-02 Albumin [Mass/Vol] 3.2 g/dL Low 3.9-4.9 [facility] Comment on above: Order Comment: Speci men Type: BLOOD SPECIMEN Performed By: #### H FP, 70089-4 ####[facility]ORATORYCLIA [id number] [address] ALP [Catalytic activity/Vol] 67 U/L Normal 38-113 [facility] Comment on above: Order Comment: Speci men Type: BLOOD SPECIMEN Performed By: #### H FP, 94869-5 ####[facility]ORYCLIA [id number] [address] ALT With P-5'-P [Catalytic activity/Vol] 16 U/L Normal 10-54 [facility] Comment on above: Order Comment: Speci men Type: BLOOD SPECIMEN Performed By: #### H FP, 93845-2 ####[facility]ORYCLIA [id number] [address] AST With P-5'-P [Catalytic activity/Vol] 25 U/L Normal 14-40 [facility] Comment on above: Order Comment: Speci men Type: BLOOD SPECIMEN Performed By: #### H FP, 83544-3 ####[facility]ORYCLIA [id number] [address] Bilirubin [Mass/Vol] 0.2 mg/dL Normal 0.2-1.3 [facility] Comment on above: Order Comment: Speci men Type: BLOOD SPECIMEN Performed By: #### Marin KATHIE, 48346-3 ####[facility] LABORATORYCLIA [id number] [address] Bilirubin.conjugated [Mass/Vol] mg/dL Normal <0.2 [facility] Comment on above: Order Comment: Speci men Type: BLOOD SPECIMEN Performed By: #### H KATHIE, 28532-2 ####[facility]ORATORYCLIA [id number] [address] Protein [Mass/Vol] 5.8 g/dL Low 6.3-8.0 [facility] Comment on above: Order Comment: Speci men Type: BLOOD SPECIMEN Performed By: #### [place] KATHIE, 56744-7 ####[facility]ORATORYCLIA [id number] [address] MRI BRAIN WO/W IVCONon 06-02 MRI BRAIN WO/W IVCON Normal [facility] Magnesium SerPl-mCncon 06-02 Magnesium [Mass/Vol] 2.0 mg/dL Normal 1.7-2.3 [facility] Comment on above: Order Comment: Speci men Type: BLOOD SPECIMEN Performed By: #### 2 4321-2, 88692-5, 2777-1 ####[facility] LABORATORYCLIA [id number] [address] NT-proBNP SerPl-mCncon 06-02 Natriuretic peptide.B prohormone N-Terminal [Mass/Vol] 296 pg/mL High <125 [facility] Comment on above: Order Comment: Speci men Type: BLOOD SPECIMEN Performed By: #### H KATHIE, 73201-1 ####[facility]ORATORYCLIA [id number] [address] POTASSIUM BLDon 06-02-2021 Potassium [Moles/Vol] 3.2 mmol/L Low 3.7-5.1 [facility] Comment on above: Order Comment: Speci men Type: BLOOD SPECIMEN Performed By: #### K 1 ####[facility] LABORATORYCLIA [id number] [address] OF [facility] Phosphate SerPl-mCncon 06-02 Phosphate [Mass/Vol] 2.1 mg/dL Low 2.7-4.8 [facility] Comment on above: Order Comment: Speci men Type: BLOOD SPECIMEN Performed By: #### 2 4321-2, 10553-8, 2777-1 ####[facility]ORATORYCLIA [id number] [address] OF [facility] Vancomycin random [Mass/Vol] on 06-02-2021 Vancomycin [...] By: #### 4 091-5 ####[facility] LABORATORYCLIA [id number] [address] OF [place] ALLIED HEALTHon 06-01-2021 ALLIED [...] By: #### A LLBG ####[facility] LABORATORYCLIA [id number] [address] Body temperature 97.52 [degF] Normal [facility] Comment on above: Order Comment: Speci men Type: ARTERIAL BLOOD SPECIMEN Performed By: #### A LLBG ####[facility]ORYCLIA [id number] [address] [facility] CALCIUM IONIZED, PH CORRECTED 1.13 mmol/L Normal 1.08-1.30 [facility] Comment on above: Order Comment: Speci men Type: ARTERIAL BLOOD SPECIMEN Performed By: #### A LLBG ####[facility]ORYCLIA [id number] [address] Calcium.ionized (BldV) [Mass/Vol] 1.12 mmol/L Normal 1.08-1.30 [facility] Comment on above: Order Comment: Speci men Type: ARTERIAL BLOOD SPECIMEN Performed By: #### A LLBG ####[facility]ORATORYCLIA [id number] [address] [facility] Carboxyhemoglobin (BldA) [Mass fraction] 1.6 % Normal 0.0-2.0 [facility] Comment on above: Order Comment: Speci men Type: ARTERIAL BLOOD SPECIMEN Result Comment: Carb oxyhemoglobin Reference Range for Smokers: 2.0-8.0% Performed By: #### A LLBG ####[facility]ORATORYCLIA [id number] [address] [place] CO2 (Bld) [Partial pressure] 41 mm Hg Normal 36-46 [facility] Comment on above: Order Comment: Speci men Type: ARTERIAL BLOOD SPECIMEN Performed By: #### A LLBG ####[facility]ORYCLIA [id number] [address] [place] CO2 [Moles/Vol] 23.0 mmol/L Normal 22-28 [facility] Comment on above: Order Comment: Speci men Type: ARTERIAL BLOOD SPECIMEN Performed By: #### A LLBG ####[facility]ORATORYCLIA [id number] [address] [facility] CO2 adjusted to patient's actual temperature (Bld) [Partial pressure] 40 mmHg Normal 36-46 [facility] Comment on above: Order Comment: Speci men Type: ARTERIAL BLOOD SPECIMEN Performed By: #### A LLBG ####[facility]ORATORYCLIA [id number] [place] [address] [place] FIO2 40 % Normal [facility] Comment on above: Order Comment: Speci men Type: ARTERIAL BLOOD SPECIMEN Performed By: #### A LLBG ####[facility]ATORYCLIA [id number] [address] [place] Glucose [Mass/Vol] 127 mg/dL High 60-105 [facility] Comment on above: Order Comment: Speci men Type: ARTERIAL BLOOD SPECIMEN Performed By: #### A LLBG ####[facility]ATORYCLIA [id number] [address] [place] HCO3 (Bld) [Moles/Vol] 25 mmol/L Normal 22-26 [facility] Comment on above: Order Comment: Speci men Type: ARTERIAL BLOOD SPECIMEN Performed By: #### A LLBG ####[facility]ORYCLIA [id number] [address] [place] Hematocrit (Bld) [Volume fraction] 33.7 % Low 39.0-51.0 [facility] Comment on above: Order Comment: Speci men Type: ARTERIAL BLOOD SPECIMEN Performed By: #### A LLBG ####[facility]ORATORYCLIA [id number] [address] [place] Hemoglobin (Bld) [Mass/Vol] 10.9 g/dL Low 13.0-17.0 [facility] Comment on above: Order Comment: Speci men Type: ARTERIAL BLOOD SPECIMEN Performed By: #### A LLBG ####[facility]ORYCLIA [id number] [address] [place] INHALED TIDAL VOLUME (ML) 500 Normal [facility] Comment on above: Order Comment: Speci men Type: ARTERIAL BLOOD SPECIMEN Performed By: #### A LLBG ####[facility]ORYCLIA [id number] [address] [place] INVASIVE VENTILATOR MODE PRVC=Pressure Regulated Volume Control Normal [facility] Comment on above: Order Comment: Speci men Type: ARTERIAL BLOOD SPECIMEN Performed By: #### A LLBG ####[facility]ORATORYCLIA [id number] [place], [place] [id number] [place] [address] Methemoglobin (Bld) [Mass fraction] % Normal 0.0-1.5 [facility] Comment on above: Order Comment: Speci men Type: ARTERIAL BLOOD SPECIMEN Performed By: #### A LLBG ####[facility]ATORYCLIA [id number] [address] [place] O2 THERAPY Ventilator Normal [facility] Comment on above: Order Comment: Speci men Type: ARTERIAL BLOOD SPECIMEN Performed By: #### A LLBG ####[facility]ATORYCLIA [id number] [address] Oxygen (Bld) [Partial pressure] 64 mm Hg Low 85-95 [facility] Comment on above: Order Comment: Speci men Type: ARTERIAL BLOOD SPECIMEN Performed By: #### A LLBG ####[facility]ATORYCLIA [id number] [address] Oxygen adjusted to patient's actual temperature (Bld) [Partial pressure] 61.8 mmHg Low 85-95 [facility] Comment on above: Order Comment: Speci men Type: ARTERIAL BLOOD SPECIMEN Performed By: #### A LLBG ####[facility]ATORYCLIA [id number] [address] OXYGEN SATURATION, ARTERIAL 94 % Low 95-98 [facility] Comment on above: Order Comment: Speci men Type: ARTERIAL BLOOD SPECIMEN Performed By: #### A LLBG ####[facility]ATORYCLIA [id number] [address] Oxyhemoglobin (BldA) [Mass fraction] 92 % Low 95-98 [facility] Comment on above: Order Comment: Speci men Type: ARTERIAL BLOOD SPECIMEN Performed By: #### A LLBG ####[facility]ATORYCLIA [id number] [address] [place] PEEP/CPAP 5 cmH2O Normal [facility] Comment on above: Order Comment: Speci men Type: ARTERIAL BLOOD SPECIMEN Performed By: #### A LLBG ####[facility]ATORYCLIA [id number] [address] pH (Bld) 7.40 [pH] Normal 7.35-7.45 [facility] Comment on above: Order Comment: Speci men Type: ARTERIAL BLOOD SPECIMEN Performed By: #### A LLBG ####[facility]ATORYCLIA [id number] [address] pH adjusted to patient's actual temperature (Bld) 7.41 Normal 7.35-7.45 [facility] Comment on above: Order Comment: Speci men Type: ARTERIAL BLOOD SPECIMEN Performed By: #### A LLBG ####[facility]ORYCLIA [id number] [address] Potassium [Moles/Vol] 3.1 mmol/L Low 3.5-5.0 [facility] Comment on above: Order Comment: Speci men Type: ARTERIAL BLOOD SPECIMEN Performed By: #### A LLBG ####[facility]ATORYCLIA [id number] [address] SET VENTILATOR RESPIRATORY RATE (BPM) 18 BPM Normal [facility] Comment on above: Order Comment: Speci men Type: ARTERIAL BLOOD SPECIMEN Performed By: #### A LLBG ####[facility]ORYCLIA [id number] [address] Sodium [Moles/Vol] 141 mmol/L Normal 136-144 [facility] Comment on above: Order Comment: Speci men Type: ARTERIAL BLOOD SPECIMEN Performed By: #### A LLBG ####[facility]ATORYCLIA [id number] [address] BASE DEFICIT, ARTERIAL -1.0 mmol/L Normal -2-0 [facility] Comment on above: Order Comment: Speci men Type: ARTERIAL BLOOD SPECIMEN Performed By: #### A LLBG ####[facility]ATORYCLIA [id number] [address] Body temperature 98.24 [degF] Normal [facility] Comment on above: Order Comment: Speci men Type: ARTERIAL BLOOD SPECIMEN Performed By: #### A LLBG ####[facility]ORATORYCLIA [id number] [address] CALCIUM IONIZED, PH CORRECTED 1.08 mmol/L Normal 1.08-1.30 [facility] Comment on above: Order Comment: Speci men Type: ARTERIAL BLOOD SPECIMEN Performed By: #### A LLBG ####[facility]ORATORYCLIA [id number] [address] Calcium.ionized (BldV) [Mass/Vol] 1.15 mmol/L Normal 1.08-1.30 [facility] Comment on above: Order Comment: Speci men Type: ARTERIAL BLOOD SPECIMEN Performed By: #### A LLBG ####[facility]ORATORYCLIA [id number] [address] [facility] Carboxyhemoglobin (BldA) [Mass fraction] 1.4 % Normal 0.0-2.0 [facility] Comment on above: Order Comment: Speci men Type: ARTERIAL BLOOD SPECIMEN Result Comment: Carb oxyhemoglobin Reference Range for Smokers: 2.0-8.0% Performed By: #### A LLBG ####[facility]ORATORYCLIA [id number] [address] [place] CO2 (Bld) [Partial pressure] 59 mm Hg High 36-46 [facility] Comment on above: Order Comment: Speci men Type: ARTERIAL BLOOD SPECIMEN Performed By: #### A LLBG ####[facility]ORATORYCLIA [id number] [address] CO2 [Moles/Vol] 24.5 mmol/L Normal 22-28 [facility] Comment on above: Order Comment: Speci men Type: ARTERIAL BLOOD SPECIMEN Performed By: #### A LLBG ####[facility]ORYCLIA [id number] [address] CO2 adjusted to patient's actual temperature (Bld) [Partial pressure] 58 mmHg High 36-46 [facility] Comment on above: Order Comment: Speci men Type: ARTERIAL BLOOD SPECIMEN Performed By: #### A LLBG ####[facility]ORYCLIA [id number] [address] [place] FIO2 40 % Normal [facility] Comment on above: Order Comment: Speci men Type: ARTERIAL BLOOD SPECIMEN Performed By: #### A LLBG ####[facility]ORYCLIA [id number] [address] Glucose [Mass/Vol] 128 mg/dL High 60-105 [facility] Comment on above: Order Comment: Speci men Type: ARTERIAL BLOOD SPECIMEN Performed By: #### A LLBG ####[facility]ORYCLIA [id number] [address] HCO3 (Bld) [Moles/Vol] 26 mmol/L Normal 22-26 [facility] Comment on above: Order Comment: Speci men Type: ARTERIAL BLOOD SPECIMEN Performed By: #### A LLBG ####[facility]ORYCLIA [id number] [address] Hematocrit (Bld) [Volume fraction] 35.6 % Low 39.0-51.0 [facility] Comment on above: Order Comment: Speci men Type: ARTERIAL BLOOD SPECIMEN Performed By: #### A LLBG ####[facility]ORYCLIA [id number] [address] [place] Hemoglobin (Bld) [Mass/Vol] 11.5 g/dL Low 13.0-17.0 [facility] Comment on above: Order Comment: Speci men Type: ARTERIAL BLOOD SPECIMEN Performed By: #### A LLBG ####[facility]ORYCLIA [id number] [address] INHALED TIDAL VOLUME (ML) 500 Normal [facility] Comment on above: Order Comment: Speci men Type: ARTERIAL BLOOD SPECIMEN Performed By: #### A LLBG ####[facility]ATORYCLIA [id number] [address] INVASIVE VENTILATOR MODE PRVC=Pressure Regulated Volume Control Normal [facility] Comment on above: Order Comment: Speci men Type: ARTERIAL BLOOD SPECIMEN Performed By: #### A LLBG ####[facility]ORYCLIA [id number] [address] Methemoglobin (Bld) [Mass fraction] % Normal 0.0-1.5 [facility] Comment on above: Order Comment: Speci men Type: ARTERIAL BLOOD SPECIMEN Performed By: #### A LLBG ####[facility]ORYCLIA [id number] [address] O2 THERAPY Ventilator Normal [facility] Comment on above: Order Comment: Speci men Type: ARTERIAL BLOOD SPECIMEN Performed By: #### A LLBG ####[facility]ATORYCLIA [id number] [address] Oxygen (Bld) [Partial pressure] 88 mm Hg Normal 85-95 [facility] Comment on above: Order Comment: Speci men Type: ARTERIAL BLOOD SPECIMEN Performed By: #### A LLBG ####[facility]ATORYCLIA [id number] [address] [facility] Oxygen adjusted to patient's actual temperature (Bld) [Partial pressure] 86.5 mmHg Normal 85-95 [facility] Comment on above: Order Comment: Speci men Type: ARTERIAL BLOOD SPECIMEN Performed By: #### A LLBG ####[facility]ATORYCLIA [id number] [address] [place] OXYGEN SATURATION, ARTERIAL 95 % Normal 95-98 [facility] Comment on above: Order Comment: Speci men Type: ARTERIAL BLOOD SPECIMEN Performed By: #### A LLBG ####[facility]ATORYCLIA [id number] [address] [place] Oxyhemoglobin (BldA) [Mass fraction] 93 % Low 95-98 [facility] Comment on above: Order Comment: Speci men Type: ARTERIAL BLOOD SPECIMEN Performed By: #### A LLBG ####[facility]ORYCLIA [id number] [address] PEEP/CPAP 5 cmH2O Normal [facility] Comment on above: Order Comment: Speci men Type: ARTERIAL BLOOD SPECIMEN Performed By: #### A LLBG ####[facility]ORYCLIA [id number] [address] pH (Bld) 7.27 [pH] Low 7.35-7.45 [facility] Comment on above: Order Comment: Speci men Type: ARTERIAL BLOOD SPECIMEN Performed By: #### A LLBG ####[facility]ORYCLIA [id number] [address] pH adjusted to patient's actual temperature (Bld) 7.28 Low 7.35-7.45 [facility] Comment on above: Order Comment: Speci men Type: ARTERIAL BLOOD SPECIMEN Performed By: #### A LLBG ####[facility]ORYCLIA [id number] [address] Potassium [Moles/Vol] 3.3 mmol/L Low 3.5-5.0 [facility] Comment on above: Order Comment: Speci men Type: ARTERIAL BLOOD SPECIMEN Performed By: #### A LLBG ####[facility]ORYCLIA [id number] [address] SET VENTILATOR RESPIRATORY RATE (BPM) 14 BPM Normal [facility] Comment on above: Order Comment: Speci men Type: ARTERIAL BLOOD SPECIMEN Performed By: #### A LLBG ####[facility]ORYCLIA [id number] [address] Sodium [Moles/Vol] 141 mmol/L Normal 136-144 [facility] Comment on above: Order Comment: Speci men Type: ARTERIAL BLOOD SPECIMEN Performed By: #### A LLBG ####[facility]ORATORYCLIA [id number] [place] [address] [place] Bacteria CSF Culton 06-01-19 22 Bacteria identified Cx Nom (CSF) CULTURE, CSF: No growth 14 days GRAM STAIN: No organisms seen Rare Polymorphonuclear leukocytes Moderate Red Blood Cells Gram stain performed on cytospun specimen. Normal [facility] Comment on above: Performed By: #### 6 06-4 ####[facility]ORATORYCLIA [id number] [address] [place] Bacteria Spec Resp Culton Bacteria identified Respiratory culture Nom (Unsp spec) CULTURE, RESPIRATORY: No growth 2 days GRAM STAIN: No organisms seen No Polymorphonuclear Leukocytes Normal [facility] Comment on above: Performed By: #### 3 2355-0 ####[facility]ORATORYCLIA [id number] [address] [place] Basic metabolic 2000 panelon 06-01-2021 Anion gap [Moles/Vol] 8 mmol/L Low 9-18 [facility] Comment on above: Order Comment: Speci men Type: BLOOD SPECIMEN Performed By: #### 2 4321-2, , 2776-05 ####[facility]ORATORYCLIA [id number] [address] [place] Calcium [Mass/Vol] 7.8 mg/dL Low 8.5-10.2 [facility] Comment on above: Order Comment: Speci men Type: BLOOD SPECIMEN Performed By: #### 2 4321-2, , 2776-05 ####[facility]ORATORYCLIA [id number] [place] [address] [place] Chloride [Moles/Vol] 109 mmol/L High 97-105 [facility] Comment on above: Order Comment: Speci men Type: BLOOD SPECIMEN Performed By: #### 2 4321-2, , 2776-05 ####[facility]ORATORYCLIA [id number] [place] [address] [place] CO2 [Moles/Vol] 26 mmol/L Normal 22-30 [facility] Comment on above: Order Comment: Speci men Type: BLOOD SPECIMEN Performed By: #### 2 4321-2, , 2776-05 ####[facility]ORATORYCLIA [id number] [address] STATES [place] [facility] Creatinine [Mass/Vol] 0.82 mg/dL Normal 0.73-1.22 [facility] Comment on above: Order Comment: Speci men Type: BLOOD SPECIMEN Performed By: #### 2 4321-2, , 2776-05 ####[facility]ORATORYCLIA [id number] [address] STATES [place] [facility] GFR/1.73 sq M.predicted MDRD (S/P/Bld) [Vol rate/Area] mL/min/{1.73_m2} Normal [facility] Comment on above: Order Comment: Spec [...] 2 4321-2, , 2776-05 ####[facility]ORATORYCLIA [id number] [place] [address] [place] Glucose [Mass/Vol] 105 mg/dL High 74-99 [facility] Comment on above: Order Comment: [facility] Type: BLOOD SPECIMEN Result Comment: The [place] Diabetes Association (ADA) provides guidance for cutoff [...] Standards of Medical Care in Diabetes 2016, [place] Diabetes Association. Diabetes Care. 2016.39(Suppl 1). Performed By: #### 2 4321-2, , 2776-05 ####[facility]ORATORYCLIA [id number] [address] Potassium [Moles/Vol] 3.8 mmol/L Normal 3.7-5.1 [facility] Comment on above: Order Comment: Speci men Type: BLOOD SPECIMEN Performed By: #### 2 4321-2, , 2776-05 ####[facility]ORATORYCLIA [id number] [address] Sodium [Moles/Vol] 143 mmol/L Normal 136-144 [facility] Comment on above: Order Comment: Speci men Type: BLOOD SPECIMEN Performed By: #### 2 4321-2, , 2776-05 ####[facility]ORATORYCLIA [id number] [address] Urea nitrogen [Mass/Vol] 15 mg/dL Normal 9-24 [facility] Comment on above: Order Comment: Speci men Type: BLOOD SPECIMEN Performed By: #### 2 4321-2, , 2776-05 ####[facility]ORATORYCLIA [id number] [address] CBC panel Auto (Bld)on 06-01 Erythrocyte distribution width (RBC) [Ratio] 15.4 % High 11.5-15.0 [facility] Comment on above: Order Comment: Speci men Type: BLOOD SPECIMEN Performed By: #### 5 8410-2 ####[facility]ORATORYCLIA [id number] [address] Hematocrit (Bld) [Volume fraction] 38.4 % Low 39.0-51.0 [facility] Comment on above: Order Comment: Speci men Type: BLOOD SPECIMEN Performed By: #### 5 8410-2 ####[facility]ORATORYCLIA [id number] [address] Hemoglobin (Bld) [Mass/Vol] 11.1 g/dL Low 13.0-17.0 [facility] Comment on above: Order Comment: Speci men Type: BLOOD SPECIMEN Performed By: #### 5 8410-2 ####[facility]ORATORYCLIA [id number] [address] MCH (RBC) [Entitic mass] 26.9 pg Normal 26.0-34.0 [facility] Comment on above: Order Comment: Speci men Type: BLOOD SPECIMEN Performed By: #### 5 8410-2 ####[facility]ORATORYCLIA [id number] [address] MCHC (RBC) [Mass/Vol] 28.9 g/dL Low 30.5-36.0 [facility] Comment on above: Order Comment: Speci men Type: BLOOD SPECIMEN Performed By: #### 5 8410-2 ####[facility]ORATORYCLIA [id number] [address] MCV (RBC) [Entitic vol] 93.2 fL Normal 80.0-100.0 [facility] Comment on above: Order Comment: Speci men Type: BLOOD SPECIMEN Performed By: #### 5 8410-2 ####[facility]ORATORYCLIA [id number] [address] Nucleated RBC (Bld) [#/Vol] 10*3/uL Normal <0.01 [facility] Comment on above: Order Comment: Speci men Type: BLOOD SPECIMEN Performed By: #### 5 8410-2 ####[facility] LABORATORYCLIA [id number] [place] [address] [place] Platelet mean volume (Bld) [Entitic vol] 10.2 fL Normal 9.0-12.7 [facility] Comment on above: Order Comment: Speci men Type: BLOOD SPECIMEN Performed By: #### 5 8410-2 ####[facility]ORATORYCLIA [id number] [address] Platelets (Bld) [#/Vol] 231 10*3/uL Normal 150-400 [facility] Comment on above: Order Comment: Speci men Type: BLOOD SPECIMEN Performed By: #### 5 8410-2 ####[facility] LABORATORYCLIA [id number] [address] [place] [facility] RBC (Bld) [#/Vol] 4.12 10*6/uL Low 4.20-6.00 [facility] Comment on above: Order Comment: Speci men Type: BLOOD SPECIMEN Performed By: #### 5 8410-2 ####[facility]ORATORYCLIA [id number] [address] WBC (Bld) [#/Vol] 10.99 10*3/uL Normal 3.70-11.00 [facility] Comment on above: Order Comment: Speci men Type: BLOOD SPECIMEN Performed By: #### 5 8410-2 ####[facility]ORATORYCLIA [id number] [address] CONSULT PROGon 06-01-2021 CONSULT PROG Normal [facility] CSF MANUAL DIFFon 06-01-2021 DIF TTL, CSF 100 cells counted Normal [facility] Comment on above: Order Comment: Speci men Type: CEREBROSPINAL FLUID Performed By: #### 3 4563-7, [id number] ####[facility]ORYCLIA [id number] [address] OF [facility] LYMPH%, CSF 11 % Low 50-90 [facility] Comment on above: Order Comment: Speci men Type: CEREBROSPINAL FLUID Performed By: #### 3 4563-7, [id number] ####[facility]ORYCLIA [id number] [place], [place] [address] [place] [address] OF [facility] MONO%, CSF 10 % Normal 10-50 [facility] Comment on above: Order Comment: Speci men Type: CEREBROSPINAL FLUID Performed By: #### 3 4563-7, [id number] ####[facility]ORATORYCLIA [id number] [place], [place] [address] [place] [address] NEUT%, CSF 79 % High 0-3 [facility] Comment on above: Order Comment: Speci men Type: CEREBROSPINAL FLUID Performed By: #### 3 4563-7, [id number] ####[facility]ORYCLIA [id number] [address] BRAIN WO IVCONon 06-01-19 CT BRAIN WO IVCON Normal [facility] Cell count panel (CSF)on Clarity (CSF) Clear Normal Clear [facility] Comment on above: Order Comment: Speci men Type: CEREBROSPINAL FLUID Performed By: #### 3 4563-7, [id number] ####[facility]ATORYCLIA [id number] [address] Clarity (Unsp spec) Not Indicated Normal Clear [facility] Comment on above: Order Comment: Speci men Type: CEREBROSPINAL FLUID Performed By: #### 3 4563-7, [id number] ####[facility]ORYCLIA [id number] [place], [place] [address] [place] [address] Color (CSF) Colorless Normal Colorless [facility] Comment on above: Order Comment: Speci men Type: CEREBROSPINAL FLUID Performed By: #### 3 4563-7, [id number] ####[facility]ORYCLIA [id number] [address] Color (Spun CSF) Not Indicated Normal Colorless [facility] Comment on above: Order Comment: Speci men Type: CEREBROSPINAL FLUID Performed By: #### 3 4563-7, [id number] ####[facility]ORYCLIA [id number] [address] CSF TUBE NUMBER Sterile Container Normal [facility] Comment on above: Order Comment: Speci men Type: CEREBROSPINAL FLUID Performed By: #### 3 4563-7, [id number] ####[facility] LABORATORYCLIA [id number] [address] RBC Manual cnt (CSF) [#/Vol] 171 cells/uL High 0-5 [facility] Comment on above: Order Comment: Speci men Type: CEREBROSPINAL FLUID Performed By: #### 3 4563-7, [id number] ####[facility] LABORATORYCLIA [id number] [address] WBC Manual cnt (CSF) [#/Vol] 5 cells/uL Normal 0-5 [facility] Comment on above: Order Comment: Speci men Type: CEREBROSPINAL FLUID Performed By: #### 3 4563-7, [id number] ####[facility] LABORATORYCLIA [id number] [address] FUNGAL CULTUREon 06-01-2021 FUNGAL CULTURE CULTURE, FUNGAL: No Fungus isolated after 28 days Normal [facility] Comment on above: Performed By: #### F CUL ####[facility] LABORATORYCLIA [id number] [address] Glucose CSF-mCncon 2 Glucose (CSF) [Mass/Vol] [...] Glucose HK (GLUC3) [package insert V 12.0 Cymraes]. [employer] [facility], [place], [place]. September 2015. 2. Michelle Moore, Loki, H. (2015). Chapter 7: Glucose and Lactate. FGarfield Rothman.(eds.), Cerebrospinal Fluid in Clinical Neurology. Saunders: [employer]. Performed By: #### 2 342-4, 2880-3 ####[facility] LABORATORYCLIA [id number] [place], [place] [address] [place] [address] [place] HERPES SIMPLEX CSFon 022 HERPES SIMPLEX CSF HSV PCR SPEC SOURCE: Cerebrospinal Fluid HSV-1: Negative for Herpes Simplex Virus Type 1 by PCR HSV-2: Negative for Herpes Simplex Virus Type 2 by PCR Normal [facility] Comment on above: Performed By: #### H [facility] ####[facility] LABCLIA [id number] [place] [address] [place] Lactate (Bld) [Moles/Vol]on 06-01-2021 Lactate [Moles/Vol] 0.5 mmol/L Normal 0.5-2.2 [facility] Comment on above: Order Comment: Speci men Type: BLOOD SPECIMEN Performed By: #### 3 2693-4 ####[facility] LABORATORYCLIA [id number] [address] MENINGITIS ENCEPHALITIS BIOF IREon 06-01-2021 MENINGITIS ENCEPHALITIS BIOFIRE Negative Normal [facility] Comment on above: Order Comment: Speci men Type: CEREBROSPINAL FLUID Performed By: #### M GEBF ####[facility] [id number], [place] [address] Magnesium SerPl-mCncon 06-01 Magnesium [Mass/Vol] 2.2 mg/dL Normal 1.7-2.3 [facility] Comment on above: Order Comment: Speci men Type: BLOOD SPECIMEN Performed By: #### 2 4321-2, 91488-5, 2777-1 ####[facility] LABORATORYCLIA [id number] [address] [place] Microorganism Spec Culton Microorganism identified Cx Nom (Unsp spec) CULTURE, AFB: No Acid Fast Bacilli isolated after 42 days AFB STAIN: No acid fast bacilli seen by flurochrome stain Normal [facility] Comment on above: Performed By: #### 1 1475-1 ####[facility] LABORATORYCLIA [id number] [address] [place] PROCALCITONIN (LAB)on 2021 Procalcitonin [Mass/Vol] 0.08 ng/mL Normal <0.09 [facility] Comment on above: Order Comment: Speci men Type: BLOOD SPECIMEN Result Comment: For a guided interpretation of test results, please visit the Change in Procalcitonin Calculator, [email or web address]. Performed By: #### P ROCAL ####[facility] LABORATORYCLIA [id number] [address] OF [facility] Phosphate SerPl-ncon 06-01 Phosphate [Mass/Vol] 3.5 mg/dL Normal 2.7-4.8 [facility] Comment on above: Order Comment: Speci men Type: BLOOD SPECIMEN Performed By: #### 2 4321-2, 57661-4, 2777-1 ####[facility] LABORATORYCLIA [id number] [address] Prot CSF-mCncon 06-01-2021 Protein (CSF) [Mass/Vol] 52 mg/dL High 15-45 [facility] Comment on above: Order Comment: Speci men Type: CEREBROSPINAL FLUID Performed By: #### 2 342-4, 2880-3 ####[facility] LABORATORYCLIA [id number] [address] OF [facility] Vancomycin random [Mass/Vol] on 06-01-2021 Vancomycin [...] By: #### 4 091-5 ####[facility] LABORATORYCLIA [id number] [address] XR CHEST 1V FRONTALon 2021 XR [...] ALLIED HEALTHon 05-31-2021 ALLIED HEALTH HNO ID: [id number] Author: Christina Lynne RT(R) Service: Radiology Author [...] By: #### 6 00-7 ####[facility] LABORATORYCLIA [id number] [address] [place] Bacteria CSF Culton 05-31-19 22 Bacteria identified Cx Nom (CSF) CULTURE, CSF: No growth 14 days GRAM STAIN: No organisms seen Rare Polymorphonuclear leukocytes Rare Red Blood Cells Gram stain performed on cytospun specimen. Normal [facility] Comment on above: Performed By: #### 6 06-4 ####[facility] LABORATORYCLIA [id number] [place] [address] [place] Basic metabolic 2000 panelon 05-31-2021 Anion gap [Moles/Vol] 9 mmol/L Normal 9-18 [facility] Comment on above: Order Comment: Speci men Type: BLOOD SPECIMEN Performed By: #### 2 777-1, 11114-9, 78174-9 ####[facility] LABORATORYCLIA [id number] [place] [address] [place] Calcium [Mass/Vol] 8.2 mg/dL Low 8.5-10.2 [facility] Comment on above: Order Comment: Speci men Type: BLOOD SPECIMEN Performed By: #### 2 777-1, , ####[facility] LABORATORYCLIA [id number] [address] STATES OF [facility] Chloride [Moles/Vol] 110 mmol/L High 97-105 [facility] Comment on above: Order Comment: Speci men Type: BLOOD SPECIMEN Performed By: #### 2 777-1, , ####[facility] LABORATORYCLIA [id number] [address] STATES OF [facility] CO2 [Moles/Vol] 27 mmol/L Normal 22-30 [facility] Comment on above: Order Comment: Speci men Type: BLOOD SPECIMEN Performed By: #### 2 777-1, , ####[facility] LABORATORYCLIA [id number] [address] [place] Creatinine [Mass/Vol] 0.85 mg/dL Normal 0.73-1.22 [facility] Comment on above: Order Comment: Speci men Type: BLOOD SPECIMEN Performed By: #### 2 777-1, , ####[facility] LABORATORYCLIA [id number] [address] [place] GFR/1.73 sq M.predicted [...] #### 2 777-1, , ####[facility] LABORATORYCLIA [id number] [place] [address] [place] Glucose [Mass/Vol] 111 mg/dL High 74-99 [facility] Comment on above: Order Comment: Speci men Type: BLOOD SPECIMEN Result Comment: The [place] Diabetes Association (ADA) provides guidance for cutoff [...] Standards of Medical Care in Diabetes 2016, [place] Diabetes Association. Diabetes Care. 2016.39(Suppl 1). Performed By: #### 2 777-1, , ####[facility] LABORATORYCLIA [id number] [place] [address] [place] Potassium [Moles/Vol] 3.7 mmol/L Normal 3.7-5.1 [facility] Comment on above: Order Comment: Speci men Type: BLOOD SPECIMEN Performed By: #### 2 777-1, , ####[facility]ORATORYCLIA [id number] [place] [address] [place] Sodium [Moles/Vol] 146 mmol/L High 136-144 [facility] Comment on above: Order Comment: Speci men Type: BLOOD SPECIMEN Performed By: #### 2 777-1, , ####[facility]ORATORYCLIA [id number] [place] [address] [place] Urea nitrogen [Mass/Vol] 16 mg/dL Normal 9-24 [facility] Comment on above: Order Comment: Speci men Type: BLOOD SPECIMEN Performed By: #### 2 777-1, 67630-4, 49407-7 ####[facility]ATORYCLIA [id number] [address] [place] CASE MGT INIT ASSESon 2021 CASE MGT INIT ASSES Normal [facility] CBC W Auto Differential pane l (Bld)on 05-31-2021 Basophils (Bld) [#/Vol] 0.04 10*3/uL Normal <0.11 [facility] Comment on above: Order Comment: Speci men Type: BLOOD SPECIMEN Performed By: #### 5 7021-8 ####[facility]ORYCLIA [id number] [address] STATES OF [facility] Basophils/100 WBC (Bld) 0.5 % Normal [facility] Comment on above: Order Comment: Speci men Type: BLOOD SPECIMEN Performed By: #### 5 7021-8 ####[facility]ATORYCLIA [id number] [address] [place] Differential cell count method Nom (Bld) Auto Normal [facility] Comment on above: Order Comment: Speci men Type: BLOOD SPECIMEN Performed By: #### 5 7021-8 ####[facility]ORYCLIA [id number] [address] [place] Eosinophils (Bld) [#/Vol] 0.27 10*3/uL Normal <0.46 [facility] Comment on above: Order Comment: Speci men Type: BLOOD SPECIMEN Performed By: #### 5 7021-8 ####[facility]ORATORYCLIA [id number] [address] [place] Eosinophils/100 WBC (Bld) 3.3 % Normal [facility] Comment on above: Order Comment: Speci men Type: BLOOD SPECIMEN Performed By: #### 5 7021-8 ####[facility]ORYCLIA [id number] [address] Erythrocyte distribution width (RBC) [Ratio] 15.4 % High 11.5-15.0 [facility] Comment on above: Order Comment: Speci men Type: BLOOD SPECIMEN Performed By: #### 5 7021-8 ####[facility]ORATORYCLIA [id number] [address] Hematocrit (Bld) [Volume fraction] 37.9 % Low 39.0-51.0 [facility] Comment on above: Order Comment: Speci men Type: BLOOD SPECIMEN Performed By: #### 5 7021-8 ####[facility] LABORATORYCLIA [id number] [address] Hemoglobin (Bld) [Mass/Vol] 11.5 g/dL Low 13.0-17.0 [facility] Comment on above: Order Comment: Speci men Type: BLOOD SPECIMEN Performed By: #### 5 7021-8 ####[facility] LABORATORYCLIA [id number] [address] IMMATURE GRAN % 0.4 % Normal [facility] Comment on above: Order Comment: Speci men Type: BLOOD SPECIMEN Performed By: #### 5 7021-8 ####[facility] LABORATORYCLIA [id number] [address] IMMATURE GRAN ABS 0.03 k/uL Normal <0.10 [facility] Comment on above: Order Comment: Speci men Type: BLOOD SPECIMEN Performed By: #### 5 7021-8 ####[facility] LABORATORYCLIA [id number] [address] Lymphocytes (Bld) [#/Vol] 1.90 10*3/uL Normal 1.00-4.00 [facility] Comment on above: Order Comment: Speci men Type: BLOOD SPECIMEN Performed By: #### 5 7021-8 ####[facility]ORATORYCLIA [id number] [address] Lymphocytes/100 WBC (Bld) 23.0 % Normal [facility] Comment on above: Order Comment: Speci men Type: BLOOD SPECIMEN Performed By: #### 5 7021-8 ####[facility] LABORATORYCLIA [id number] [address] MCH (RBC) [Entitic mass] 28.0 pg Normal 26.0-34.0 [facility] Comment on above: Order Comment: Speci men Type: BLOOD SPECIMEN Performed By: #### 5 7021-8 ####[facility] LABORATORYCLIA [id number] [address] MCHC (RBC) [Mass/Vol] 30.3 g/dL Low 30.5-36.0 [facility] Comment on above: Order Comment: Speci men Type: BLOOD SPECIMEN Performed By: #### 5 7021-8 ####[facility] LABORATORYCLIA [id number] [address] MCV (RBC) [Entitic vol] 92.4 fL Normal 80.0-100.0 [facility] Comment on above: Order Comment: Speci men Type: BLOOD SPECIMEN Performed By: #### 5 7021-8 ####[facility] LABORATORYCLIA [id number] [address] Monocytes (Bld) [#/Vol] 0.60 10*3/uL Normal <0.87 [facility] Comment on above: Order Comment: Speci men Type: BLOOD SPECIMEN Performed By: #### 5 7021-8 ####[facility]ORYCLIA [id number] [address] Monocytes/100 WBC (Bld) 7.3 % Normal [facility] Comment on above: Order Comment: Speci men Type: BLOOD SPECIMEN Performed By: #### 5 7021-8 ####[facility]ATORYCLIA [id number] [address] [place] Neutrophils (Bld) [#/Vol] 5.41 10*3/uL Normal 1.45-7.50 [facility] Comment on above: Order Comment: Speci men Type: BLOOD SPECIMEN Performed By: #### 5 7021-8 ####[facility] LABORATORYCLIA [id number] [address] Neutrophils/100 WBC (Bld) 65.5 % Normal [facility] Comment on above: Order Comment: Speci men Type: BLOOD SPECIMEN Performed By: #### 5 7021-8 ####[facility] LABORATORYCLIA [id number] [address] Nucleated RBC (Bld) [#/Vol] 10*3/uL Normal <0.01 [facility] Comment on above: Order Comment: Speci men Type: BLOOD SPECIMEN Performed By: #### 5 7021-8 ####[facility] LABORATORYCLIA [id number] [address] Nucleated RBC/100 WBC (Bld) [Ratio] 0.0 /100 WBC Normal 0.0 [facility] Comment on above: Order Comment: Speci men Type: BLOOD SPECIMEN Performed By: #### 5 7021-8 ####[facility] LABORATORYCLIA [id number] [address] Platelet mean volume (Bld) [Entitic vol] 9.8 fL Normal 9.0-12.7 [facility] Comment on above: Order Comment: Speci men Type: BLOOD SPECIMEN Performed By: #### 5 7021-8 ####[facility] LABORATORYCLIA [id number] [address] Platelets (Bld) [#/Vol] 251 10*3/uL Normal 150-400 [facility] Comment on above: Order Comment: Speci men Type: BLOOD SPECIMEN Performed By: #### 5 7021-8 ####[facility]ORYCLIA [id number] [address] RBC (Bld) [#/Vol] 4.10 10*6/uL Low 4.20-6.00 [facility] Comment on above: Order Comment: Speci men Type: BLOOD SPECIMEN Performed By: #### 5 7021-8 ####[facility] LABORATORYCLIA [id number] [address] STATES OF [facility] WBC (Bld) [#/Vol] 8.25 10*3/uL Normal 3.70-11.00 [facility] Comment on above: Order Comment: Speci men Type: BLOOD SPECIMEN Performed By: #### 5 7021-8 ####[facility] LABORATORYCLIA [id number] [address] [place] CONSULTon 05-31-2021 CONSULT Normal [facility] [...] #### 2 143-6, 3016-3 ####[facility] LABORATORYCLIA [id number] [address] [place] Cryptoc Ag Spec Ql LAon 05-08 Cryptococcus sp Ag LA Ql (Unsp spec) Negative Normal [facility] Comment on above: Performed By: #### 4 3228-6 ####[facility] LABORATORYCLIA [id number] [address] [place] HISTORY PHYSICALon HISTORY PHYSICAL Normal [facility] Magnesium SerPl-mCncon 05-31 Magnesium [Mass/Vol] 2.2 mg/dL Normal 1.7-2.3 [facility] Comment on above: Order Comment: Speci men Type: BLOOD SPECIMEN Performed By: #### 2 777-1, 82446-9, 72927-7 ####[facility] LABORATORYCLIA [id number] [address] OF [facility] NURSING PROGon 05-31-2021 NURSING PROG Normal [facility] NUTRITIONon 05-31-2021 NUTRITION Normal [facility] OPERATIVE NOon 05-31-2021 OPERATIVE NO Normal [facility] Phosphate SerPl-mCncon 05-31 Phosphate [Mass/Vol] 3.3 mg/dL Normal 2.7-4.8 [facility] Comment on above: Order Comment: Speci men Type: BLOOD SPECIMEN Performed By: #### 2 777-1, 52067-4, ####[facility] LABORATORYCLIA [id number] [address] STAPH AUREUS PCRon S. aureus and MRSA panel MEGAN+probe (Nose) Normal Negative [facility] Comment on above: Order Comment: Speci men Type: SWAB OF INTERNAL NOSE Result Comment: Nega tive for Staphylococcus aureus by PCR.Negative for MRSA by PCR Performed By: #### S APCR ####[facility] LABORATORYCLIA [id number] [address] [place] TSH SerPl-aCncon 05-31-2021 TSH Qn 0.829 m[IU]/L Normal 0.270-4.200 [facility] Comment on above: Order Comment: Speci men Type: BLOOD SPECIMEN Performed By: #### 2 143-6, 3016-3 ####[facility] LABORATORYCLIA [id number] [address] [place] XR CHEST 1V FRONTALon 2021 XR CHEST 1V FRONTAL Normal [facility] XR CHEST 1V FRONTAL Normal [facility] Blood Cultureon 05-30-2021 Bacteria identified Cx Nom (Bld) Culture Result - No growth 5 days Normal [facility] Comment on above: Performed By: #### C AD #### [facility] [id number] [place] [address] Bacteria identified Cx Nom (Bld) Sp. Request/Comment: - 8.2MLS Culture Result - No growth 5 days Normal [facility] Comment on above: Performed By: #### C AD #### [facility] [id number] [place] [address] C-Reactive Proteinon 022 C-Reactive Protein 1.7 mg/dL High <0.9 [facility] Comment on above: Performed By: #### C RP ####[facility] [address] [place] [phone] CNDSon 05-30-2021 [facility] HNO ID: [id number] Author: Columba Carroll PA-C Service: Hospital Medicine Author Type: Physician Environmental Designer Type: Discharge Summary Filed: 05/30/2021 12:49 [...] Team: Attending Provider: Ayaka Menjivar MD Physician Environmental Designer: Columba Carroll PA-C Consulting: Lilo Mendoza [...] consulted. Neurology suggested empiric abx coverage for LIME PULLER infection Rocephin and Vancomycin was started. Tele-neuro also suggested an MRI brain be obtained prior to LP to check [employer] MA[employer] shunt and decrease risk of herniation in neurosurgery capable facility. Transfer to [facility] requested. Sepsis lactate was 1.3. ABG showed pO2 67.8, placed patient on 2L NC.Follow B1, B12, and RPR pending. 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 LABS AND PROCEDURES PENDING [...] q 1 (more content not included)... Normal [facility] CONSULTon 05-30-2021 CONSULT HNO ID: [id number] Author: Juan Carlos Mckenzie MD Service: Infectious [...] vertebrae with counting from the craniocervical junction. Medical Staff Services Coordinator: PSCB Transcribe Date/Time: May 29 2021 8:59P Dictated by : CARLOS YOUNGER MD This examination was interpreted and the report reviewed and electronically signed by: CARLOS YOUNGER MD on May 29 2021 9:14PM EST ? CT CERVICAL SPINE WO (more content not included)... Normal [facility] CONSULT HNO ID: [id number] Author: Lilo Mendoza MD Service: Neurology General Author Type: Physician Type: Consults Filed: 05/30/2021 10:56 AM Note Text: [facility] TeleNeurology Consult Note Patient seen using [facility]. Recommendations are placed in the chart. Please review. For questions after hours, when teleneurologist is not available, for [place]: Please Page [phone] for the [facility] Neurology Group from 12pm to 8Am Admitting Provider/Consulted by:Hermes Roca MD Time of Note:05/30/2021 Patient Name:Andrew Sifuentes Admit Date:05/29/2021 Hospital Day:0 CC: altered mental status History of Present Illness: Andrew Sifuentes is a 71 year old unknown handed male with limited information about past medical history including venous insufficiency s/p EVLT, hydrocepalus s/p CIGAR MA[employer] SUPER[employer]OR shunt in 1987 with multiple revisions and [...] Reflexes Right Lef (more content not included)... 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 Age: [age] year old Allergies: ALLERGIES Allergen [...] Levels: No results found for: IMANI Gutierres [facility] Creatinineon 05-30-2021 Creatinine [Mass/Vol] 0.86 mg/dL Normal 0.73-1.22 [facility] Comment on above: Performed By: #### C RET1 ####[facility] [address] [place] [phone] eGFR- Amer. >60 [facility] Comment on above: Performed By: #### C RET1 ####[facility] [address] [phone] eGFR-All Other Races >60 [facility] [...] at [email or web address]. Performed By: #### C RET1 ####[facility] [phone] Crypto Antigen Deton 022 Crypto Antigen Det Sp. Request/Comment: - SST Test Result - Duplicate request Account Credited [facility] Comment on above: Performed By: #### C AD #### [facility] [address] [place] [address] [facility] [address] [place] [address] Crypto Antigen Det Sp. Request/Comment: - SST Test Result - Cryptococcal antigen detection result: Negative By latex agglutination [facility] Comment on above: Performed By: #### C AD #### [facility] [address] [place] [address] [facility] [address] [place], [place] [address] ED NOTEon 05-30-2021 ED NOTE HNO ID: [id number] Author: Aletha Lopez RN Service: ? Author Type: Registered Nurse Type: ED Notes Filed: 05/29/2021 11:16 PM Note Text: Patient changed for incontinent urine, labs redrawn and sent. Patient aware of plan to be admitted and agrees with plan Normal [facility] HISTORY PHYSICALon HISTORY PHYSICAL Normal [facility] HISTORY PHYSICAL HNO ID: [id number] Author: Hermes Roca MD Service: Hospital Medicine Author Type: Physician Type: HANDP Filed: 05/30/2021 1:03 AM Note Text: DEPARTMENT OF HOSPITAL MEDICINE HISTORY AND PHYSICAL EXAM SERVICE DATE: 05/29/2021 SERVICE TIME: 11:18 PM Primary Care Physician: Mateus Burris MD NIGHT AND WEEKEND COVERAGE: Please page [phone] until 7:30am this morning. After 7:30am please check the treatment team banner and page the appropriate service. 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 Normal [facility] Magnesium SerPl-mCncon 05-30 Magnesium [Mass/Vol] 2.5 mg/dL High 1.7-2.3 [facility] Comment on above: Order Comment: Speci men Type: BLOOD SPECIMEN Performed By: #### 1 9123-9, 2777-1 ####[facility] LABORATORYCLIA [id number] [place] [address] [place] NURSING PROGon 05-30-2021 NURSING PROG HNO ID: [id number] Author: Precious Cervantes, AYUSH Service: ? Author Type: Registered Nurse Type: Nursing Progress Note Filed: 05/30/2021 11:26 AM Note Text: Nursing Progress Note Patient Name: Andrew Sifuentes Patient Location: [id number] Daily Note: 0700- Report received from physical therapy assistant instructor RN, patient resting in bed at this time, call light within reach, bed low and locked. Asked the patient to state his name because physical therapy assistant instructor RN was unable to complete his admission [...] This note was completed by: Precious Cervantes [facility] NURSING PROG HNO ID: [id number] Author: Lyubov Day RN Service: ? Author Type: Registered Nurse Type: Nursing Progress Note Filed: 05/30/2021 1:27 AM Note Text: Nursing Progress Note Patient Name: Andrew Sifuentes [id number] 0100: Patient is unresponsive to questions. Patient [...] This note was completed by: Lyubov Day [facility] Phosphate SerPl-mCncon 05-30 Phosphate [Mass/Vol] 3.5 mg/dL Normal 2.7-4.8 [facility] Comment on above: Order Comment: Speci men Type: BLOOD SPECIMEN Performed By: #### 1 9123-9, 2777-1 ####[facility] LABORATORYCLIA [id number] [address] Sepsis Lactateon 05-30-2021 Sepsis Lactate 1.5 mmol/L Normal 0.5-2.0 [facility] Comment on above: Performed By: #### S LACT ####[facility] [address] [place], [place] [phone] Syphilis Ttl w/Reflxon 05-30 Syphilis Interp Cannot exclude recen t Treponemal infection if specimen collected within 7 to 10 days after appearance of suspect lesions or 2 to 3 weeks after an exposure. Clinical correlation is required. Normal [facility] Comment on above: Performed By: #### S YPHTX, B1WB ####[facility] [address] [place], [place] [phone] Syphilis Screen Rslt Non-Reactive Normal Non Reactive [facility] Comment on above: Performed By: #### S YPHTX, B1WB ####[facility] [address] [place], [place] [phone] THERAPY NTon 05-30-2021 THERAPY NT HNO ID: [id number] Author: Bette Jimenez OTR/L Service: Occupational Therapy Author Type: Occupational Therapist Type: Therapy (PT/OT/Speech/Resp) Filed: 05/30/2021 10:29 AM Note Text: OCCUPATIONAL THERAPY MISSED VISIT SERVICE DATE: 05/30/2021 SERVICE TIME: 1017 to 1019 ROOM: [place] [address] Attempted Evaluation. Patient not seen due to Not following commands. Per nursing patient was seen by neuro and they are talking about having him transferred to [facility] secondary to shunt concerns. Will re attempt in the event patient continues to be admitted at [facility] and is able to participate. SIGNATURE: Bette Jimenez OTR/L PATIENT NAME: Andrew Sifuentes DATE: May 30, 2021 TIME: 10:21 AM Normal [facility] THERAPY NT HNO ID: [id number] Author: Bette Velasquez PT Service: Physical Therapy Author Type: Physical Therapist Type: Therapy (PT/OT/Speech/Resp) Filed: 05/30/2021 8:42 AM Note Text: PHYSICAL THERAPY MISSED VISIT SERVICE DATE: 05/30/2021 SERVICE TIME: 839 to 839 ROOM: [place] [address] Attempted Evaluation. Patient not seen due to (pt difficult to awake per RN, very lethargic). Will re-attempt when schedule permits. SIGNATURE: Bette Velasquez PT PATIENT NAME: Andrew Sifuentes DATE: May 30, 2021 TIME: 8:41 AM [facility] Toxicology Screen,Uron 05-30 Amphetamines, Urine Negative Normal Negative [facility] Comment on above: Result Comment: Cuto ff threshold at 1000 ng/mL. Performed By: #### C AD #### [facility] [address] [place], [place] [phone] [place] [address] Barbiturates, Urine Negative Normal Negative [facility] Comment on above: Result Comment: Cuto ff threshold at 200 ng/mL. Performed By: #### C AD #### [facility] [place] [phone] [facility] [address] [place] [address] Benzodiazepines, Ur Negative Normal Negative [facility] Comment on above: Result Comment: Cuto ff threshold at 200 ng/mL. Performed By: #### C AD #### [facility] [place] [phone] [facility] [address] [place] [address] Cannabinoids, Urine Negative Normal Negative [facility] Comment on above: Result Comment: Cuto ff threshold at 50 ng/mL. Performed By: #### C AD #### [facility] [address] [place] [phone] [place] [address]45[address] [place] [address] Cocaine, Urine Negative Normal Negative [facility] Comment on above: Result Comment: Cuto ff threshold at 300 ng/mL. Performed By: #### C AD #### [facility] [address] [place] [phone] [place] [address] Opiates, Urine Negative Normal Negative [facility] Comment on above: Result Comment: Cuto ff threshold at 300 ng/mL. Performed By: #### C AD #### [facility] [address] [place] [phone] [place] [address] Oxycodone, Urine Negative Normal Negative [facility] Comment on above: Result Comment: Cuto [...] on the same specimen through Client Services ([phone]) if contacted within 48 hours of initial testing. [1]Substance Abuse and Mental Health Services Administration (2012). Clinical Drug Testing in Primary Care Technical Assistance Publication Series 32. Department of Health and Human Services, [place], p.10. Performed By: #### C AD #### [facility] [address] [place] [phone] [place] [address] Phencyclidine, Urine Negative Normal Negative [facility] Comment on above: Result Comment: Cuto ff threshold at 25 ng/mL. Performed By: #### C AD #### [facility] [address] [place] [phone] [facility] [address] [place] [address] Troponin Ton 05-30-2021 Troponin T <0.010 Normal 0.000-0.029 [facility] Comment on above: Performed By: #### T NT ####[facility] [address] [place] [phone] Urinalysison 05-30-2021 Bilirubin, Urine Negative Normal Negative [facility] Comment on above: Performed By: #### C AD #### [facility] [address] [place] [phone] [facility] [address] [place] [address] Clarity (U) Slightly Cloudy Critically abnormal Clear [facility] Comment on above: Performed By: #### C AD #### [facility] [address] [place] [phone] [facility] [address] [place] [address] Color (U) Yellow Normal Yellow [facility] Comment on above: Performed By: #### C AD #### [facility] [address] [place] [address] [facility] [address] [place] [address] Glucose Ql (U) Negative Normal Negative [facility] Comment on above: Performed By: #### C AD #### [facility] [address] [place] [phone] [facility] [address] [place] [address] Hemoglobin/Blood,Ur Negative Normal Negative [facility] Comment on above: Performed By: #### C AD #### [facility] [address] [place] [phone] [facility] [address] [place] [address] Ketones Ql (U) Negative Normal Negative [facility] Comment on above: Performed By: #### C AD #### [facility] [address] [place] [address] [facility] [address] [place], [place] [address] Leukest Negative Normal Negative [facility] Comment on above: Performed By: #### C AD #### [facility] [address] [place] [address] [facility] [address] [place] [address] Nitrite Ql (U) Negative Normal Negative [facility] Comment on above: Performed By: #### C AD #### [facility] [address] [place] [address] [facility] [address] [place] [address] pH (U) 8.5 [pH] High 5.0-8.0 [facility] Comment on above: Performed By: #### C AD #### [facility] [address] [place] [address] [facility] [address] [place] [phone] Protein, Urine Negative Normal Negative [facility] Comment on above: Performed By: #### C AD #### [facility] [address] [place] [address] [facility] [address] [place], [place] [address] Specific [place], Ur 1.015 Normal 1.005-1.030 [facility] Comment on above: Performed By: #### C AD #### [facility] [address] [place] [address] [facility] [address] [place], [place] [address] Urobilinogen Qn (U) 0.2 {Marianne'U}/dL Normal 0.2-1.0 [facility] Comment on above: Performed By: #### C AD #### [facility] [address] [place] [address] [facility] [address] [place], [place] [address] Vitamin B1, Whole Blon 05-30 Vitamin B1 (TDP), WB 207.1 nmol/L Normal 84.0-213.0 [facility] Comment on above: Result Comment: This assay measures the concentration of thiamine diphosphate (TDP), the primary active form of vitamin B1. Approximately 90 percent of vitamin B1 present in whole blood is TDP. Thiamine and thiamine monophosphate, which comprise the remaining 10 percent, are not measured. This test was developed and its performance characteristics determined by [facility]'s [facility] ([facility]). It has not been cleared or approved by the FDA. [facility] is regulated under CLIA as qualified to perform high complexity testing. This test is used for clinical purposes. It should not be regarded as investigational or for research. Performed By: #### S YPHTX, B1WB ####[facility] [place], [place] [phone] Vitamin B12on 05-30-2021 Cobalamin (Vitamin B12) [Mass/Vol] 494 pg/mL Normal 232-1245 [facility] Comment on above: Performed By: #### C AD #### [facility] [address] [place] [address] [place] [address] [place], [place] [address] ALLIED HEALTHon 05-29-2021 ALLIED HEALTH HNO ID: [id number] Author: RT Kitty(R) Service: Radiology Author Type: [...] Kitty(R) May 29, 2021 8:51 PM Normal [facility] ALLIED HEALTH HNO ID: [id number] Author: Markie Fish Service: ? Author Type: Entry Level Account Representative Type: Allied Health Filed: 05/29/2021 8:39 [...] Fish May 29, 2021 8:38 PM Normal [facility] CBC and Differentialon 05-29 Abs Baso 0.05 k/uL Normal <0.11 [facility] Comment on above: Performed By: #### C MP, MG1, CBCDIF ####[facility] [address] [place] [address] Abs Eddy 0.72 k/uL Normal <0.87 [facility] Comment on above: Performed By: #### C MP, MG1, CBCDIF ####[facility] [address] [place] [address] Abs Neut 7.86 k/uL High 1.45-7.50 [facility] Comment on above: Performed By: #### C MP, MG1, CBCDIF ####[facility] [address] [place] [address] Absolute nRBC <0.01 Normal <0.01 [facility] Comment on above: Performed By: #### C MP, MG1, CBCDIF ####[facility] [address] [place] [address] Basophils/100 WBC (Bld) 0.5 % Normal [facility] Comment on above: Performed By: #### C MP MG1, CBCDIF ####[facility] [address] [place] [address] DTYPE Auto Diff Normal [facility] Comment on above: Performed By: #### C MP, MG1, CBCDIF ####[place] [address] Eosinophils (Bld) [#/Vol] 0.10 10*3/uL Normal <0.46 [facility] Comment on above: Performed By: #### C MP, MG1, CBCDIF ####[place] [address] Eosinophils/100 WBC (Bld) 0.9 % Normal [facility] Comment on above: Performed By: #### C MP, MG1, CBCDIF ####[place] [address] Erythrocyte distribution width (RBC) [Ratio] 15.5 % High 11.5-15.0 [facility] Comment on above: Performed By: #### C MP, MG1, CBCDIF ####[place] [address] Hematocrit (Bld) [Volume fraction] 41.6 % Normal 39.0-51.0 [facility] Comment on above: Performed By: #### C MP, MG1, CBCDIF ####[place] [address] Hemoglobin (Bld) [Mass/Vol] 12.7 g/dL Low 13.0-17.0 [facility] Comment on above: Performed By: #### C MP, MG1, CBCDIF ####[place] [address] Lymphocytes (Bld) [#/Vol] 2.04 10*3/uL Normal 1.00-4.00 [facility] Comment on above: Performed By: #### C MP, MG1, CBCDIF ####[facility] [address] [place] [address] Lymphocytes/100 WBC (Bld) 18.9 % Normal [facility] Comment on above: Performed By: #### C MP, MG1, CBCDIF ####[facility] [address] [place] [address] MCH 27.3 pG Normal 26.0-34.0 [facility] Comment on above: Performed By: #### C MP, MG1, CBCDIF ####[facility] [address] [place] [address] MCHC (RBC) [Mass/Vol] 30.5 g/dL Normal 30.5-36.0 [facility] Comment on above: Performed By: #### C MP, MG1, CBCDIF ####[place] [address] MCV (RBC) [Entitic vol] 89.5 fL Normal 80.0-100.0 [facility] Comment on above: Performed By: #### C MP, MG1, CBCDIF ####[facility] [address] [place] [address] Monocytes/100 WBC (Bld) 6.7 % Normal [facility] Comment on above: Performed By: #### C MP, MG1, CBCDIF ####[place] [address] Neutrophils/100 WBC (Bld) 73.0 % Normal [facility] Comment on above: Performed By: #### C MP, MG1, CBCDIF ####[facility] [address] [place] [address] NRBCs 0.0 /100 WBC Normal 0 [facility] Comment on above: Performed By: #### C MP, MG1, CBCDIF ####[place] [address] Platelet mean volume (Bld) [Entitic vol] 10.1 fL Normal 9.0-12.7 [facility] Comment on above: Performed By: #### C MP, MG1, CBCDIF ####[facility] [address] [place] [address] Platelets (Bld) [#/Vol] 291 10*3/uL Normal 150-400 [facility] Comment on above: Performed By: #### C MP, MG1, CBCDIF ####[facility] [address] [place] [phone] RBC (Bld) [#/Vol] 4.65 10*6/uL Normal 4.20-6.00 [facility] Comment on above: Performed By: #### C MP, MG1, CBCDIF ####[facility] [address] WBC (Bld) [#/Vol] 10.77 10*3/uL Normal 3.70-11.00 [facility] Comment on above: Performed By: #### C MP, MG1, CBCDIF ####[facility] [address] [place] [phone] CT BRAIN WO IVCONon 05-29-19 CT BRAIN WO IVCON * * *Final Report* * * DATE OF EXAM: May 29 2021 8:42PM [facility] [place] [place] BRAIN WO IV[place] / PROCEDURE REASON: Head trauma, headache * * * * Physician Interpretation * * * * EXAMINATION: CT CERVICAL SPINE WO IVCON, CT BRAIN WO IVCON CLINICAL HISTORY: C-spine trauma, NEXUS/CCR positive (accession [id number]), Head trauma, headache (accession [id number]) TECHNIQUE: Serial axial unenhanced images were obtained from the vertex to the foramen magnum. Spiral, high resolution axial unenhanced images were obtained from the skull base to the cervicothoracic junction with sagittal and coronal planar reconstructions. Dose-Length Product (DLP): 2132 mGy*cm. CT Dose Reduction Employed: Automated exposure control (AEC) COMPARISON: 08/13/[address] RESULT: BRAIN: Post-operative change: Right parietal approach CIGAR MAKING SUPERVISOR shunt is intact. The intracranial fragments of [...] vertebrae with counting from the craniocervical junction. Medical Staff Services Coordinator: OG Transcribe Date/Time: May 29 2021 8:59P Dictated by : CARLOS YOUNGER MD This examination was interpreted and the report reviewed and electronically signed by: CARLOS YOUNGER MD on May 29 2021 9:14PM EST [id number] [facility] CT CERVICAL SPINE WO IVCONon 05-29-2021 CT CERVICAL SPINE WO IVCON * * *Final Report* * * DATE OF EXAM: May 29 2021 8:42PM [facility] [place] CT CERVICAL SPINE WO IVCON / PROCEDURE REASON: C-spine trauma, NEXUS/CCR positive * * * * Physician Interpretation * * * * EXAMINATION: CT CERVICAL SPINE WO IVCON, CT BRAIN WO IVCON CLINICAL HISTORY: C-spine trauma, NEXUS/CCR positive (accession [id number]), Head trauma, headache (accession [id number]) TECHNIQUE: Serial axial unenhanced images were obtained from the vertex to the foramen magnum. Spiral, high resolution axial unenhanced images were obtained from the skull base to the cervicothoracic junction with sagittal and coronal planar reconstructions. Dose-Length Product (DLP): 2132 mGy*cm. CT Dose Reduction Employed: Automated exposure control (AEC) COMPARISON: 08/13/[address] RESULT: BRAIN: Post-operative change: Right parietal approach CIGAR MAKING SUPERVISOR shunt is intact. The intracranial fragments of [...] vertebrae with counting from the craniocervical junction. Medical Staff Services Coordinator[facility] Transcribe Date/Time: May 29 2021 8:59P Dictated by : CARLOS YOUNGER MD This examination was interpreted and the report reviewed and electronically signed by: CARLOS YOUNGER MD on May 29 2021 9:14PM EST [id number] Normal [facility] Cepheid Bill only (EXCFR)on 05-29-2021 Cepheid Bill only (EXCFR) Billed for services performed Normal [facility] Comment on above: Performed By: #### C AD #### [facility] [address] [place] [address] [facility] [address] [place], [place] [address] Comp Metabolic Panelon 05-29 Albumin [Mass/Vol] 4.1 g/dL Normal 3.9-4.9 [facility] Comment on above: Performed By: #### C MP ####[facility] [address] [place], [place] [phone] ALP [Catalytic activity/Vol] 86 U/L Normal 38-113 [facility] Comment on above: Performed By: #### C MP ####[facility] [address] [place] [address] ALT [Catalytic activity/Vol] 15 U/L Normal 10-54 [facility] Comment on above: Performed By: #### C MP ####[facility] [address] [place] [address] Anion gap [Moles/Vol] 9 mmol/L Normal 9-18 [facility] Comment on above: Performed By: #### C MP ####[facility] [address] [place] [address] AST [Catalytic activity/Vol] 22 U/L Normal 14-40 [facility] Comment on above: Performed By: #### C MP ####[facility] [address] [place] [address] Bilirubin [Mass/Vol] 0.2 mg/dL Normal 0.2-1.3 [facility] Comment on above: Performed By: #### C MP ####[facility] [address] [place] [address] Calcium [Mass/Vol] 9.1 mg/dL Normal 8.5-10.2 [facility] Comment on above: Performed By: #### C MP ####[facility] [address] [place] [address] Chloride [Moles/Vol] 103 mmol/L Normal 97-105 [facility] Comment on above: Performed By: #### C MP ####[facility] [address] [place] [address] CO2 [Moles/Vol] 29 mmol/L Normal 22-30 [facility] Comment on above: Performed By: #### C MP ####[facility] [address] [place] [address] Creatinine [Mass/Vol] 0.89 mg/dL Normal 0.73-1.22 [facility] Comment on above: Performed By: #### C MP ####[facility] [address] [place] [address] eGFR- Amer. >60 Normal [facility] Comment on above: Performed By: #### C MP ####[facility] [address] [place] [phone] eGFR-All Other Races >60 Normal [facility] [...] at [email or web address]. Performed By: #### C MP ####[facility] [address] [place] [phone] Glucose [Mass/Vol] 120 mg/dL High 74-99 [facility] Comment on above: Result Comment: The [place] Diabetes Association (ADA) provides guidance for cutoff [...] Standards of Medical Care in Diabetes 2016, [place] Diabetes Association. Diabetes Care. 2016.39(Suppl 1). Performed By: #### C MP ####[facility] [address] [place] [phone] Potassium [Moles/Vol] 4.2 mmol/L Normal 3.7-5.1 [facility] Comment on above: Performed By: #### C MP ####[facility] [address] [place] [address] Protein [Mass/Vol] 7.1 g/dL Normal 6.3-8.0 [facility] Comment on above: Performed By: #### C MP ####[facility] [address] [place] [address] Sodium [Moles/Vol] 141 mmol/L Normal 136-144 [facility] Comment on above: Performed By: #### C MP ####[facility] [address] [place] [address] Urea nitrogen [Mass/Vol] 11 mg/dL Normal 9-24 [facility] Comment on above: Performed By: #### C MP ####[facility] [address] [place] [address] Albumin [Mass/Vol] 4.1 g/dL Normal 3.9-4.9 [facility] Comment on above: Performed By: #### C MP, MG1, CBCDIF ####[facility] [address] [place] [address] ALP [Catalytic activity/Vol] 86 U/L Normal 38-113 [facility] Comment on above: Performed By: #### C MP, MG1, CBCDIF ####[facility] [address] [place] [address] ALT Unable to assay due to interference from hemolysis. Suggest reorder as clinically indicated. Normal 10-54 [facility] Comment on above: Result Comment: Call ed to ED StephanLubna at [phone] on 05.29.21 by Sabino Performed By: #### C MP, MG1, CBCDIF ####[facility] [address] [place] [address] Anion gap [Moles/Vol] 12 mmol/L Normal 9-18 [facility] Comment on above: Performed By: #### C MP, MG1, CBCDIF ####[facility] [address] [place] [address] AST Unable to assay due to interference from hemolysis. Suggest reorder as clinically indicated. Normal 14-40 [facility] Comment on above: Result Comment: Call ed to ED StephanLubna at [phone] on 05.29.21 by Sabino Performed By: #### C MP, MG1, CBCDIF ####[facility] [address] [place] [address] Bilirubin [Mass/Vol] 0.2 mg/dL Normal 0.2-1.3 [facility] Comment on above: Performed By: #### C MP, MG1, CBCDIF ####[facility] [address] [place] [address] Calcium [Mass/Vol] 9.0 mg/dL Normal 8.5-10.2 [facility] Comment on above: Performed By: #### C MP, MG1, CBCDIF ####[facility] [address] [place] [address] Chloride [Moles/Vol] 102 mmol/L Normal 97-105 [facility] Comment on above: Performed By: #### C MP MG1, CBCDIF ####[facility] [address] [place] [address] CO2 [Moles/Vol] 27 mmol/L Normal 22-30 [facility] Comment on above: Performed By: #### C MP, MG1, CBCDIF ####[facility] [address] [place] [address] Creatinine [Mass/Vol] 0.75 mg/dL Normal 0.73-1.22 [facility] Comment on above: Performed By: #### C MP, MG1, CBCDIF ####[facility] [address] [place] [address] eGFR- Amer. >60 Normal [facility] Comment on above: Performed By: #### C MP, MG1, CBCDIF ####[facility] [address]46 [place] [address] eGFR-All Other Races >60 Normal [facility] [...] Performed By: #### C MP, MG1, CBCDIF ####[facility] [address] [place] [address] Glucose [Mass/Vol] 112 mg/dL High 74-99 [facility] Comment on above: Result Comment: The [place] Diabetes Association (ADA) provides guidance for cutoff [...] Standards of Medical Care in Diabetes 2016, [place] Diabetes Association. Diabetes Care. 2016.39(Suppl 1). Performed By: #### C MP, MG1, CBCDIF ####[facility] [address] [place], [place] [id number] Potassium Unable to assay due to interference from hemolysis. Suggest reorder as clinically indicated. Normal 3.7-5.1 [facility] Comment on above: Result Comment: Call ed to LISA Rea at 2129 on 05.29.21 by Sabino Performed By: #### C MP, MG1, CBCDIF ####[facility] Y[address]rsgz6266 [address] Protein [Mass/Vol] 7.3 g/dL Normal 6.3-8.0 [facility] Comment on above: Performed By: #### C MP, MG1, CBCDIF ####[facility] [address] [place] [phone] Sodium [Moles/Vol] 141 mmol/L Normal 136-144 [facility] Comment on above: Performed By: #### C MP, MG1, CBCDIF ####[facility] [address] [place] [phone] Urea nitrogen [Mass/Vol] 11 mg/dL Normal 9-24 [facility] Comment on above: Performed By: #### C MP, MG1, CBCDIF ####[facility] [address] [place] [phone] ED PROV NOTEon 05-29-2021 ED PROV NOTE HNO ID: [id number] Author: Shanell Slaughter MD Service: ? Author [...] reviewed and are negative. Physical Exam Vitals [05/29/219] BP Pulse Temp Temp src Resp SpO2 [...] No radiographic evidence of acute cardiopulmonary disease. Medical Staff Services Coordinator: OG Transcribe Date/Time: May 29 2021 8:53P [...] vertebrae with counting from the craniocervical junction. Medical Staff Services Coordinator: [facility] Transcribe Date/Time: May 29 2021 8:59P [...] vertebrae with counting from the craniocervical junction. Medical Staff Services Coordinator: [facility] Transcribe Date/Time: May 29 (more content not included)... 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 Provider Location: [facility] [place] [facility] Patient Location: Outpatient Hospital Physical [...] Pandya, DO Flavio Pandya, DO 05/29/211909 Normal [facility] EXCOVD, Flu A/B, RSV (On int erfaces 1102,1120)on 05-29-2021 Influenza A PCR Negative [facility] Comment on above: Performed By: #### C AD #### [facility] [address] [place] [address] [facility] [address] [place] [address] Influenza B PCR Negative [facility] Comment on above: Performed By: #### C AD #### [facility] [address] [place] [address] [facility] [address] [place] [id number] RSV PCR Negative [facility] Comment on above: Result Comment: This test has been authorized by FDA under an Emergency Use Authorization (EUA). Performed By: #### C AD #### [facility] [address] [place] [address] [facility] [address] [place], [place] [address] SARS-CoV-2 (COVID-19) RNA MEGAN+probe Ql (Unsp spec) UPPER RESPIRATORY TRACT SWAB Normal [facility] Comment on above: Performed By: #### C AD #### [facility] [place] [address] [place] [address] SARS-CoV-2 (COVID-19) RNA MEGAN+probe Ql (Unsp spec) Negative for COVID19 (SARS CoV2) by RT-PCR or equivalent method. Normal Negative for COVID19 (SARS CoV2) by RT-PCR or equivalent method. [facility] Comment on above: Result Comment: This test has been authorized by FDA under an Emergency Use Authorization (EUA). Performed By: #### C AD #### [facility] [place] [id number] [place] [address] Magnesiumon 05-29-2021 Magnesium [Mass/Vol] 2.2 mg/dL Normal 1.7-2.3 [facility] Comment on above: Performed By: #### C MP, MG1, CBCDIF ####[facility] [address] [place] [phone] NT Pro BNPon 05-29-2021 PRO B Natr Peptide 303 pg/mL High <125 [facility] Comment on above: Performed By: #### N TBNP ####[facility] Zmdceeexxz8600 [phone] Troponin Ton 05-29-2021 Troponin T <0.010 Normal 0.000-0.029 [facility] Comment on above: Performed By: #### T NT ####[facility] Sw[address]xolovp4730 [address] Troponin T Unable to assay due to interference from hemolysis. Suggest reorder as clinically indicated. Normal 0.000-0.029 [facility] Comment on above: Result Comment: Call ed to LISA Rea at [phone] on 05.29.21 by Sabino Performed By: #### T NT ####[facility] [address] [place] [phone] XR CHEST 1V FRONTAL PORTon 0 05-29-2021 [...] No radiographic evidence of acute cardiopulmonary disease. Medical Staff Services Coordinator: OG Transcribe Date/Time: May 29 2021 8:53P Dictated by : ROLY ABNGURA MD This examination was interpreted and the report reviewed and electronically signed by: ROLY BANGURA MD on May 29 2021 8:54PM EST [id number] Normal [facility] COMPREHENSIVE PANELon 2020 Albumin [Mass/Vol] 3.9 g/dL Normal 3.4 - 5.0 [facility] Comment on above: Order Comment: PATIE NT FASTING Performed By: #### C MP #### [facility] [address] [place] [address] ALP [Catalytic activity/Vol] 71 U/L Normal 33 - 136 [facility] Comment on above: Order Comment: PATIE NT FASTING Performed By: #### C MP #### [facility] [address] [place] [address] ALT [Catalytic activity/Vol] 19 U/L Normal 10 - 52 [facility] Comment on above: Order Comment: PATIE NT FASTING Result Comment: Nasima ents treated with Sulfasalazine may generate falsely decreased results for ALT. Performed By: #### C MP #### [facility] [address] [place] [address] Anion gap [Moles/Vol] 13 mmol/L Normal 10 - 20 [facility] Comment on above: Order Comment: PATIE NT FASTING Performed By: #### C MP #### [facility] [address] [place] [address] AST [Catalytic activity/Vol] 20 U/L Normal 9 - 39 [facility] Comment on above: Order Comment: PATIE NT FASTING Performed By: #### C MP #### [facility] [address] [place] [address] Bilirubin [Mass/Vol] 0.6 mg/dL Normal 0.0 - 1.2 [facility] Comment on above: Order Comment: PATIE NT FASTING Performed By: #### C MP #### [facility] [address] [place] [address] Calcium [Mass/Vol] 9.0 mg/dL Normal 8.6 - 10.6 [facility] Comment on above: Order Comment: PATIE NT FASTING Performed By: #### C MP #### [facility] [address] [place] [address] Chloride [Moles/Vol] 103 mmol/L Normal 98 - 107 [facility] Comment on above: Order Comment: PATIE NT FASTING Performed By: #### C MP #### [facility] [address] [place] [address] Creatinine [Mass/Vol] 0.94 mg/dL Normal 0.50 - 1.30 [facility] Comment on above: Order Comment: PATIE NT FASTING Performed By: #### C MP #### [facility] [address] [place] [address] GFR- AM. >60 Normal >60 [facility] Comment on above: Order Comment: PATIE NT FASTING Result Comment: CALC ULATIONS OF ESTIMATED GFR ARE PERFORMED USING THE MDRD STUDY EQUATION FOR THE IDMS-TRACEABLE CREATININE METHODS. CLIN CHEM 2007;53:766-72 Performed By: #### C MP #### [facility] [address] [place] [address] GFR-NON AM. >60 Normal >60 [facility] Comment on above: Order Comment: PATIE NT FASTING Performed By: #### C MP #### [facility] [address] [place] [address] Glucose [Mass/Vol] 85 mg/dL Normal 74 - 99 [facility] Comment on above: Order Comment: PATIE NT FASTING Performed By: #### C MP #### [facility] [address] [place] [address] HCO3 (Bld) [Moles/Vol] 30 mmol/L Normal 21 - 32 [facility] Comment on above: Order Comment: PATIE NT FASTING Performed By: #### C MP #### [facility] [address] [place] [address] Potassium [Moles/Vol] 4.1 mmol/L Normal 3.5 - 5.3 [facility] Comment on above: Order Comment: PATIE NT FASTING Performed By: #### C MP #### [facility] [address] [place] [address] Protein [Mass/Vol] 6.6 g/dL Normal 6.4 - 8.2 [facility] Comment on above: Order Comment: PATIE NT FASTING Performed By: #### C MP #### [facility] [address] [place] [address] Sodium [Moles/Vol] 142 mmol/L Normal 136 - 145 [facility] Comment on above: Order Comment: PATIE NT FASTING Performed By: #### C MP #### [facility] [address] [place] [address] Urea nitrogen [Mass/Vol] 14 mg/dL Normal 6 - 23 [facility] Comment on above: Order Comment: PATIE NT FASTING Performed By: #### C MP #### [facility] [address] [place] [address] LIPID PANEL (CORONARY RISK 2 )on 09-03-2020 Cholesterol [Mass/Vol] 210 mg/dL High 0 - 199 [facility] Comment on above: Order [...] Performed By: #### L IPID #### [facility] [address] [place] [address] Cholesterol in HDL [Mass/Vol] 50.1 mg/dL Normal [facility] Comment on above: Order Comment: PATIE NT FASTING Result Comment: . AGE VERY LOW LOW NORMAL HIGH 0-19 Y < 35 < 40 40-45 ---- 20-24 Y ---- < 40 >45 ---- >24 Y ---- < 40 40-60 >60 . Performed By: #### L IPID #### [facility] [address] [place] [address] Cholesterol in LDL [Mass/Vol] 130 mg/dL High 0 - 99 [facility] Comment on above: Order Comment: PATIE NT FASTING Result Comment: . NEAR BORD AGE DESIRABLE OPTIMAL HIGH HIGH VERY HIGH 0-19 Y 0 - 109 --- 110-129 >/= 130 ---- 20-24 Y 0 - 119 --- 120-159 >/= 160 ---- >24 Y 0 - 99 100-129 130-159 160-189 >/=190 . Performed By: #### L IPID #### [facility] [address] [place] [address] Cholesterol in VLDL [Mass/Vol] 30 mg/dL Normal 0 - 40 [facility] Comment on above: Order Comment: PATIE NT FASTING Performed By: #### L IPID #### [facility] [address] [place] [address] Cholesterol.total/Chol esterol in HDL [Mass ratio] 4.2 {ratio} Normal [facility] Comment on above: Order Comment: PATIE NT FASTING Result Comment: REF VALUES DESIRABLE < 3.4 HIGH RISK > 5.0 Performed By: #### L IPID #### [facility] [address] [place] [address] Triglyceride [Mass/Vol] 152 mg/dL High 0 - 149 [facility] Comment on above: Order [...] dosing. Performed By: #### L IPID #### [facility] [address] [place] [address] PROSTATE SPEC.AG,SCREENon PROSTATE SPEC.AG,SCREEN 0.37 ng/mL Normal 0.00 - 4.00 [facility] Comment on above: Order Comment: PATIE NT FASTING Result Comment: The FDA requires that the method used for PSA assay be reported to the physician. Values obtained with different assay methods must not be used interchangeably. This test was performed at [facility] using the [employer] PSA method, which is a sandwich immunoassay using chemiluminescence for quantitation. The assay is approved for measurement of prostate-specific antigen (PSA) in serum and may be used in conjunction with a digital rectal examination in men 50 years and older as an aid in detection of prostate cancer. 7-Rgsff-fzubgcffe inhibitors (e.g. Proscar, Finasteride, Avodart, Dutasteride and Elizabeth) for the treatment of BPH have been shown to lower PSA levels by an average of 50% after 6 months of treatment. Performed By: #### P SASC #### [facility] [address] [place] [address] TSH WITH REFLEX TO FREE T4 I F ABNORMALon 09-03-2020 TSH Qn 0.97 m[IU]/L Normal 0.44 - 3.98 [facility] Comment on above: Order Comment: PATIE NT FASTING Result Comment: TSH testing is performed using different testing methodology at [facility] than at other [facility]. Direct result comparisons should only be made within the same method. Performed By: #### T HYDS #### [facility] [address] [place] [address] CBC AND DIFFERENTIALon 09-02 % AUTOMATED IMMATURE GRAN 0.3 % Normal 0.0 - 0.9 [facility] Comment on above: Order Comment: PATIE NT FASTING Result Comment: [place] Granulocyte Count (IG) includes promyelocytes, myelocytes and metamyelocytes but does not include bands. Percent differential counts (%) should be interpreted in the context of the absolute cell counts (cells/L). Performed By: #### C BCDF #### [facility] [address] [place] [address] Basophils (Bld) [#/Vol] 0.07 10*3/uL Normal 0.00 - 0.10 [facility] Comment on above: Order Comment: PATIE NT FASTING Result Comment: Auto mated WBC differential has been confirmed by manual smear. Performed By: #### C BCDF #### [facility] [address] [place] [address] Basophils/100 WBC (Bld) 0.9 % Normal 0.0 - 2.0 [facility] Comment on above: Order Comment: PATIE NT FASTING Performed By: #### C BCDF #### [facility] [address] [place] [address] Eosinophils (Bld) [#/Vol] 0.21 10*3/uL Normal 0.00 - 0.70 [facility] Comment on above: Order Comment: PATIE NT FASTING Performed By: #### C BCDF #### [facility] [address] [place] [address] Eosinophils/100 WBC (Bld) 2.8 % Normal 0.0 - 6.0 [facility] Comment on above: Order Comment: PATIE NT FASTING Performed By: #### C BCDF #### [facility] [address] [place] [address] Lymphocytes (Bld) [#/Vol] 2.28 10*3/uL Normal 1.20 - 4.80 [facility] Comment on above: Order Comment: PATIE NT FASTING Performed By: #### C BCDF #### [facility] [address] [place] [address] Lymphocytes/100 WBC (Bld) 30.9 % Normal 13.0 - 44.0 [facility] Comment on above: Order Comment: PATIE NT FASTING Performed By: #### C BCDF #### [facility] [address] [place] [address] Monocytes (Bld) [#/Vol] 0.50 10*3/uL Normal 0.10 - 1.00 [facility] Comment on above: Order Comment: PATIE NT FASTING Performed By: #### C BCDF #### [facility] [address] [place] [address] Monocytes/100 WBC (Bld) 6.8 % Normal 2.0 - 10.0 [facility] Comment on above: Order Comment: PATIE NT FASTING Performed By: #### C BCDF #### [facility] [address] [place] [address] Neutrophils (Bld) [#/Vol] 4.29 10*3/uL Normal 1.20 - 7.70 [facility] Comment on above: Order Comment: PATIE NT FASTING Performed By: #### C BCDF #### [facility] [address] [place] [address] Neutrophils/100 WBC (Bld) 58.3 % Normal 40.0 - 80.0 [facility] Comment on above: Order Comment: PATIE NT FASTING Performed By: #### C BCDF #### [facility] [address] [place] [address] Erythrocyte distribution width (RBC) [Ratio] 14.6 % High 11.5 - 14.5 [facility] Comment on above: Order Comment: PATIE NT FASTING Performed By: #### C BCDF #### [facility] [address] [place] [address] Hematocrit (Bld) [Volume fraction] 43.1 % Normal 41.0 - 52.0 [facility] Comment on above: Order Comment: PATIE NT FASTING Performed By: #### C BCDF #### [facility] [address] [place] [address] Hemoglobin (Bld) [Mass/Vol] 13.3 g/dL Low 13.5 - 17.5 [facility] Comment on above: Order Comment: PATIE NT FASTING Performed By: #### C BCDF #### [facility] [address] [place] [address] MCHC (RBC) [Mass/Vol] 30.9 g/dL Low 32.0 - 36.0 [facility] Comment on above: Order Comment: PATIE NT FASTING Performed By: #### C BCDF #### [facility] [address] [place] [address] MCV (RBC) [Entitic vol] 92 fL Normal 80 - 100 [facility] Comment on above: Order Comment: PATIE NT FASTING Performed By: #### C BCDF #### [facility] [address] [place] [address] NUCLEATED RBC 0.0 /100 WBC Normal 0.0-0.0 [facility] Comment on above: Order Comment: PATIE NT FASTING Performed By: #### C BCDF #### [facility] [address] [place] [address] Platelets (Bld) [#/Vol] 267 10*3/uL Normal 150 - 450 [facility] Comment on above: Order Comment: PATIE NT FASTING Performed By: #### C BCDF #### [facility] [address] [place] [address] RBC 4.69 x10E12/L Normal 4.50 - 5.90 [facility] Comment on above: Order Comment: PATIE NT FASTING Performed By: #### C BCDF #### [facility] [address] [place] [address] WBC (Bld) [#/Vol] 7.4 10*3/uL Normal 4.4 - 11.3 [facility] Comment on above: Order Comment: PATIE NT FASTING Performed By: #### C BCDF #### [facility] [address] [place] [address] RED CELL MORPHOLOGYon 2020 CHANELL CELLS Few Normal [facility] Comment on above: Order Comment: PATIE NT FASTING Performed By: #### M ORP2 #### [facility] [address] [place] [address] OVALOCYTES Few Normal [facility] Comment on above: Order Comment: PATIE NT FASTING Performed By: #### M ORP2 #### [facility] [address] [place] [address] POLYCHROMASIA Mild Normal [facility] Comment on above: Order Comment: PATIE NT FASTING Performed By: #### M ORP2 #### [facility] [address] [place] [address] RBC FRAGMENTS Few Normal [facility] Comment on above: Order Comment: PATIE NT FASTING Performed By: #### M ORP2 #### [facility] [address] [place] [address] RBC morphology finding Nom (Bld) See Below Normal [facility] Comment on above: Order Comment: PATIE NT FASTING Performed By: #### M ORP2 #### [facility] [address] [place] [address] No Panel Informationon 01-19 76 1 MP-Cardiolo [...] [place] Work Phone: [email or web address] ?RetrieveTestByDateTime?P hbfzehAE=[id number]&Date=1 09-13-2019&Time=15%3a11%3a 03%3a00&TestType=ECG&Site =1&OutputType=PDF&Ext=PDF MP-Cardiolo gy-[place] 140 [place] Work Phone: Otheron 11-13-2019 [facility] Complete Blood Count + Diffe rentialon [...] RBC (Bld) [#/Vol] 4.85 {x10E12/L} See Below [facility] Work Phone: Comment on above: Reference Range: 4.5 0 - 5.90 WBC (Bld) [#/Vol] 0.0 {/100_WBC} 0.0-0.0 [facility] Work Phone: WBC (Bld) [#/Vol] 7.2 {x10E9/L} 4.4 - 11.3 [facility] Work Phone: Complete Blood Count + Differential 0.1 % 0.0 - 0.9 [facility] Work Phone: Comment on above: Immature Granulocyte Count (IG) includes promyelocytes, myelocytes and metamyelocytes but does not include bands. Percent differential counts (%) should be interpreted in the context of the absolute cell counts (cells/L). Lipid Panelon 11-06-2019 Cholesterol [Mass/Vol] 181 mg/dL 0 - 199 [facility] Work Phone: Comment on [...] dosing. Cholesterol in HDL [Mass/Vol] 52.1 mg/dL [facility] Work Phone: Comment on above: . AGE VERY LOW LOW N ORMAL HIGH 0-19 Y < 35 < 40 40-45 ---- 20-24 Y ---- < 40 >45 ---- >24 Y ---- < 40 40-60 >60. Cholesterol in LDL [Mass/Vol] 97 mg/dL 0 - 99 [facility] Work Phone: Comment on above: . NEAR BORD AGE IZABELLA RABLE OPTIMAL HIGH HIGH VERY HIGH 0-19 Y 0 - 109 --- 110-129 >/= 130 ---- 20-24 Y 0 - 119 --- 120-159 >/= 160 ---- >24 Y 0 - 99 100-129 130-159 160-189 >/=190. Cholesterol.total/Chol esterol in HDL [Mass ratio] 3.5 {ratio} [facility] Work Phone: Comment on above: REF VALUESDESIRABLE < 3.4HIGH RISK > 5.0 Triglyceride [Mass/Vol] 158 mg/dL above high threshold 0 - 149 [facility] Work Phone: Comment on above: . AGE [...] 32 mg/dL 0 - 40 [facility] Work Phone: Metabolic Panelon 11-06-2019 ALP [Catalytic activity/Vol] 70 U/L 33 - 136 [facility] Work Phone: Anion gap [Moles/Vol] 13 mmol/L 10 - 20 [facility] Work Phone: Bilirubin [Mass/Vol] 0.6 mg/dL 0.0 - 1.2 [facility] Work Phone: Calcium [Mass/Vol] 9.4 mg/dL 8.6 - 10.6 [facility] Work Phone: Chloride [Moles/Vol] 99 mmol/L 98 - 107 [facility] Work Phone: CO2 [Moles/Vol] 30 mmol/L 21 - 32 [facility] Work Phone: Creatinine [Mass/Vol] 0.87 mg/dL See Below [facility] Work Phone: Comment on above: Reference Range: 0.5 0 - 1.30 Glucose [Mass/Vol] 89 mg/dL 74 - 99 [facility] Work Phone: Potassium [Moles/Vol] 4.3 mmol/L 3.5 - 5.3 [facility] Work Phone: Protein [Mass/Vol] 7.3 g/dL 6.4 - 8.2 [facility] Work Phone: Sodium [Moles/Vol] 138 mmol/L 136 - 145 [facility] Work Phone: Urea nitrogen [Mass/Vol] 14 mg/dL 6 - 23 [facility] Work Phone: Otheron 11-06-2019 Albumin BCP dye [Mass/Vol] 4.4 g/dL 3.4 - 5.0 [facility] Work Phone: ALT With P-5'-P [Catalytic activity/Vol] 11 U/L 10 - 52 [facility] Work Phone: Comment on above: Patients treated wit h Sulfasalazine may generate falsely decreased results for ALT. AST With P-5'-P [Catalytic activity/Vol] 17 U/L 9 - 39 [facility] Work Phone: >60 >60 [facility] Work Phone: Comment on above: CALCULATIONS OF LUZMARIA MATED GFR ARE PERFORMED USING THE MDRD STUDY EQUATION FOR THE IDMS-TRACEABLE CREATININE METHODS. CLIN CHEM [id number] Culture, urine Bacteria identified Cx Nom (U) Mixed Gram Pos & Gram Neg Org [facility] Work Phone: Bacteria identified Cx Nom (U) Klebsiella pneumoniae sp pneum [facility] Work Phone: Vital Signs Date Time Vital Sign Value Performing Clinician Facility 09-13-2023 11:48-0400 Body height 175.3 cm Rebecca Buck MD Work Phone: [facility] 09-13-2023 11:48-0400 Body mass index (BMI) [Ratio] 25.84 kg/m2 Rebecca Buck MD Work Phone: [facility] 09-13-2023 11:48-0400 Body weight 79.38 kg Rebecca Buck MD Work Phone: [facility] 08-13-2023 09:56-0400 Body height 175.3 cm Rebecca Buck MD Work Phone: [facility] 08-13-2023 09:56-0400 Body mass index (BMI) [Ratio] 25.84 kg/m2 Rebecca Buck MD Work Phone: [facility] 08-13-2023 09:56-0400 Body weight 79.38 kg Rebecca Buck MD Work Phone: [facility] 03-02-2022 18:49-0400 Body temperature 98.01 [degF] Lanette Munguia DO Work Phone: [facility] 03-02-2022 18:49-0400 Diastolic blood pressure 72 mm[Hg] Lanette Munguia DO Work Phone: [facility] 03-02-2022 18:49-0400 Heart rate 94 /min Lanette Munguia DO Work Phone: [facility] 03-02-2022 18:49-0400 Respiratory rate 18 /min Lanette Munguia DO Work Phone: [facility] 03-02-2022 18:49-0400 SaO2% (BldA) [Mass fraction] 98 % Lanette Munguia DO Work Phone: [employer] 03-02-2022 18:49-0400 Systolic blood pressure 104 mm[Hg] Lanette Munguia DO Work Phone: [employer] 03-02-2022 11:55-0400 Body height 175.3 cm Lanette Munguia DO Work Phone: [employer] 03-02-2022 11:55-0400 Body mass index (BMI) [Ratio] 25.84 kg/m2 Lanette Munguia DO Work Phone: [employer] 03-02-2022 11:55-0400 Body weight 79.38 kg Lanette Munguia DO Work Phone: [employer] 12-22-2021 02:08-0400 Diastolic blood pressure 67 mm[Hg] Sharon Olivia MD Work Phone: [employer] 12-22-2021 02:08-0400 Heart rate 77 /min Sharon Olivia MD Work Phone: [employer] 12-22-2021 02:08-0400 Respiratory rate 16 /min Sharon Olivia MD Work Phone: [employer] 12-22-2021 02:08-0400 SaO2% (BldA) [Mass fraction] 96 % Sharon Olivia MD Work Phone: [facility] 12-22-2021 02:08-0400 Systolic blood pressure 108 mm[Hg] Sharon Olivia MD [facility] Phone: [facility] 12-21-2021 23:52-0400 Body height 175.3 cm Sharon Olivia MD Work Phone: [employer] 12-21-2021 23:52-0400 Body mass index (BMI) [Ratio] 25.84 kg/m2 Sharon Olivia MD Work Phone: [facility] 12-21-2021 23:52-0400 Body temperature 97.9 [degF] Sharon Olivia MD Work Phone: [facility] 12-21-2021 23:52-0400 Body weight 79.38 kg Sharon Olivia MD Work Phone: [facility] 11-01-2021 08:41-0400 Diastolic blood pressure 77 mm[Hg] Dante Kim MD Work Phone: [facility] 11-01-2021 08:41-0400 Heart rate 75 /min Dante Kim MD Work Phone: [facility] 11-01-2021 08:41-0400 Respiratory rate 16 /min Dante Kim MD Work Phone: [facility] 11-01-2021 08:41-0400 SaO2% (BldA) [Mass fraction] 97 % Dante Kim MD Work Phone: [facility] 11-01-2021 08:41-0400 Systolic blood pressure 112 mm[Hg] Dante Kim MD Work Phone: [facility] 10-31-2021 19:13-0400 Body height 177.8 cm Dante Kim MD Work Phone: [facility] 10-31-2021 19:13-0400 Body mass index (BMI) [Ratio] 27.26 kg/m2 Dante Kim MD Work Phone: [facility] 10-31-2021 19:13-0400 Body temperature 98.49 [degF] Dante Kim MD Work Phone: [facility] 10-31-2021 19:13-0400 Body weight 86.18 kg Dante Kim MD Work Phone: [facility] 10-29-2021 07:38-0400 Body temperature 97.81 [degF] Lisa Michelle DO Work Phone: [facility] 10-29-2021 07:38-0400 Diastolic blood pressure 79 mm[Hg] Lisa Michelle DO Work Phone: [facility] 10-29-2021 07:38-0400 Heart rate 80 /min Lisa Michelle DO Work Phone: [facility] 10-29-2021 07:38-0400 Respiratory rate 18 /min Lisa Michelle DO Work Phone: [facility] 10-29-2021 07:38-0400 SaO2% (BldA) [Mass fraction] 96 % Lisa Michelle DO Work Phone: [facility] 10-29-2021 07:38-0400 Systolic blood pressure 123 mm[Hg] Lisa Michelle DO Work Phone: [facility] 10-25-2021 13:55-0400 Body height 170.2 cm Lisa Michelle DO Work Phone: [facility] 10-21-2021 00:57-0400 Body mass index (BMI) [Ratio] 37.58 kg/m2 Lisa Michelle DO Work Phone: [facility] 10-21-2021 00:57-0400 Body weight 108.86 kg Lisa Michelle DO Work Phone: [facility] 07-13-2020 13:21-0500 BMI (Body Mass Index) 40.47 kg/m2 Monika Staley [facility] Work Phone: 07-13-2020 13:21-0500 Body Temperature 98 [degF] Shiela Stuart [facility] Work Phone: 07-13-2020 13:21-0500 Body weight 124.31 kg Monika Staley [facility] Work Phone: 07-13-2020 13:21-0500 BP Diastolic 78 mm[Hg] Shiela Stuart [facility] Work Phone: 07-13-2020 13:21-0500 BP Systolic 138 mm[Hg] Monika Staley [facility] Work Phone: 07-13-2020 13:21-0500 BSA (Body Surface Area) 2.36 m2 Monika Staley [facility] Work Phone: 04-13-2020 15:33-0500 BMI (Body Mass Index) 40.32 kg/m2 [facility] Work Phone: 04-13-2020 15:33-0500 Body weight 123.83 kg [facility] Work Phone: 04-13-2020 15:33-0500 BP Diastolic 82 mm[Hg] [facility] Work Phone: Comment on above: Location: [facility]; Position: Sitting 04-13-2020 15:33-0500 BP Systolic 145 mm[Hg] [facility] Work Phone: Comment on above: Location: [facility]; Position: Sitting 04-13-2020 15:33-0500 BSA (Body Surface Area) 2.36 m2 [facility] Work Phone: 04-13-2020 15:33-0500 Height 175.26 cm [facility] Work Phone: 04-13-2020 15:33-0500 Pulse (Heart Rate) 98 /min [facility] Work Phone: 04-13-2020 15:33-0500 Pulse Oximetry 98 % [facility] Work Phone: Comment on above: Source: 04-13-2020 15:33-0500 0 1 [facility] Work Phone: Comment on above: Pain Scale 01-20-2020 16:39-0400 Body height 175.26 cm Monika Staley MD MP-Cardiolog y-Med [facility] [address] [place] Work Phone: 01-20-2020 16:39-0400 Body mass index (BMI) [Ratio] 39.28 kg/m2 Monika Staley MD FL-Npcamaplnb-Gwn [address] [place] Work Phone: 01-20-2020 16:39-0400 Body surface area Derived from formula 2.33 m2 Monika Staley MD OM-Ucosgtbciq-Lbp [address] [place] Work Phone: 01-20-2020 16:39-0400 Body weight 120.66 kg Monika Staley MD -Cardiolog y-[facility] [address] [place] Work Phone: 01-20-2020 16:39-0400 Diastolic blood pressure 84 mm[Hg] Monika Staley MD AA-Jeycavgart-Lgo [address] [place] Work Phone: Comment on above: Location: [facility]; Position: Sitting 01-20-2020 16:39-0400 Heart rate 80 /min Monika Staley MD -Cardiolog y-[facility] [address] [place] Work Phone: 01-20-2020 16:39-0400 SaO2% (BldA) [Mass fraction] 100 % Monika Staley MD UJ-Iftfkcctiw-Yzw [address] [place] Work Phone: Comment on above: Source: 01-20-2020 16:39-0400 Systolic blood pressure 144 mm[Hg] Monika Staley MD GS-Ewlskcfrmq-Hkn [address] [place] Work Phone: Comment on above: Location: [facility]; Position: Sitting 11-06-2019 15:29-0400 BMI (Body Mass Index) 38.31 kg/m2 Monika Staley [facility] Work Phone: 11-06-2019 15:29-0400 Body Temperature 97.6 [degF] Monika Staley [facility] Work Phone: 11-06-2019 15:29-0400 Body weight 117.66 kg Monika Staley [facility] Work Phone: 11-06-2019 15:29-0400 BP Diastolic 62 mm[Hg] Monika Staley [facility] Work Phone: 11-06-2019 15:29-0400 BP Systolic 140 mm[Hg] [facility] Work Phone: 11-06-2019 15:040 BSA (Body Surface Area) 2.31 m2 Monika Staley [facility] Work Phone: 11-06-2019 15:040 Height 175.26 cm Monika Staley [facility] Work Phone: Encounters Encounter Date Encounter Type Care Provider Facility Start: 02-23-2025 ambulatory Mahaveer Mukka flash OLS Facility:[facility] Start: 02-19-2025 ambulatory Mahaveer Mukka flash OLS Facility:[facility] Start: 02-16-2025 ambulatory Mahaveer Mukka flash OLS Facility:[facility] Start: 02-12-2025 [facility] Start: 02-09-2025 ambulatory Carlos Cavazos OLS Faci lity:[facility] Start: 02-05-2025 ambulatory Mahaveer Mukka flash OLS Facility:[facility] Start: 02-05-2025 Registered Referred [facility] Start: 02-02-2025 ambulatory Mahaveer Mukka flash OLS Facility:[facility] Start: 02-02-2025 Registered Referred [facility] Start: 01-29-2025 ambulatory Mahaveer Mukka flash OLS Facility:[facility] Start: 01-29-2025 [facility] Start: 01-26-2025 ambulatory Mahaveer Mukka flash OLS Facility:[facility] Start: 01-26-2025 [facility] Start: 01-22-2025 ambulatory Mahaveer Mukka flash OLS Facility:[facility] Start: 01-22-2025 Registered Referred [facility] Start: 01-19-2025 ambulatory Carlos Cavazos OLS Faci lity:[facility] Start: 01-19-2025 Registered Referred Carlos Cavazos - [facility] Start: 01-15-2025 [facility]ulatory [facility] Start: 01-15-2025 Registered Referred Karon casillas MD -[facility] Start: 01-12-2025 [facility] Start: 01-12-2025 Registered Referred Karon casillas MD -[facility] Start: 01-08-2025 ambulatory [facility] OLS Facility:[facility] Start: 01-08-2025 Registered Referred Karon casillas MD -[facility] Start: 01-06-2025 [facility]ulatory [facility] Start: 01-06-2025 Registered Referred Karon casillas MD -[facility] Start: 01-01-2025 Registered Referred Karon casillas MD -[facility] Start: 01-01-2025 End: 01-01-2025 [facility] Start: 12-29-2024 ambulatory Carlos NOVAK Faci lity:[facility] Start: 12-29-2024 Registered Referred Carlos Cavazos - [facility] Start: 12-26-2024 Registered Referred Karon casillas MD -[facility] Start: 12-25-2024 End: 12-26-2024 ambulatory [facility] Start: 12-25-2024 Registered Referred Karon casillas MD -[facility] Start: 12-24-2024 ambulatory Carlos Cavazos OLS Faci lity:[facility] Start: 12-24-2024 Registered Referred Carlos Cavazos - [facility] Start: 12-22-2024 ambulatory [facility] Start: 12-22-2024 Registered Referred Karon casillas MD -[facility] Start: 12-18-2024 ambulatory [facility] OLS Facility:[facility] Start: 12-18-2024 Registered Referred Karon casillas MD -[facility] Start: 12-15-2024 ambulatory [facility] OLS Facility:[facility] Start: 12-15-2024 Registered Referred Karon casillas MD -[facility] Start: 12-11-2024 ambulatory Carlos NOVAK Faci lity:[facility] Start: 12-11-2024 Registered Referred Carlos Cavazos - [facility] Start: 12-08-2024 ambulatory [facility] OLS Facility:[facility] Start: 12-08-2024 [facility] Start: 12-04-2024 ambulatory [facility] OLS Facility:[facility] Start: 12-04-2024 Registered Referred Karon casillas MD -[facility] Start: 12-02-2024 ambulatory [facility] OLS Facility:[facility] Start: 12-02-2024 Registered Referred Karon casillas MD -[facility] Start: 12-01-2024 ambulatory Carlos NOVAK Faci lity:[facility] Start: 12-01-2024 Registered Referred Carlos Cavazos - [facility] Start: 11-28-2024 ambulatory Carlos NOVAK Faci lity:[facility] Start: 11-28-2024 Registered Referred Carlos Cavazos - [facility] Start: 11-27-2024 ambulatory [facility] OLS Facility:[facility] Start: 11-27-2024 [facility] Start: 11-24-2024 ambulatory [facility] OLS Facility:[facility] Start: 11-24-2024 Registered Referred Karon casillas MD -[facility] Start: 11-20-2024 [facility] Start: 11-20-2024 Registered Referred Carlaraynoe Godoy sonja VALLADARES -[facility] Start: 11-17-2024 [facility]ulatory [facility] Start: 11-17-2024 Registered Referred Karon Walt sonja VALLADARES -[facility] Start: 11-13-2024 [facility]ulatory [facility] Start: 11-13-2024 Registered Referred Karon casillas MD -[facility] Start: 11-10-2024 [facility]ulatory [facility] Start: 11-10-2024 Registered Referred Karon casillas MD -[facility] Start: 11-06-2024 [facility]ulatory [facility] Start: 11-06-2024 Registered Referred Karon casillas MD -[facility] Start: 11-03-2024 End: 11-03-[address] Monika Staley MD Work Phone: -[facility] Start: 11-03-2024 End: 11-03-2024 Departed Referred Carlos Cavazos -[facility] Start: 11-03-2024 Registered Referred Carlos Cavazos - [facility] Start: 11-03-2024 End: 11-03-2024 ambulatory Monika Staley Facility:[facility] Start: 10-30-2024 End: 10-30-[address] Monika Staley MD Work Phone: -[facility] Start: 10-30-2024 End: 10-30-2024 Departed Referred Karon Corrales MD -[facility] Start: 10-30-2024 Registered Referred Karon casillas MD -[facility] Start: 10-30-2024 End: 10-30-2024 ambulatory Monika Staley Facility:[facility] Start: 10-27-2024 ambulatory Karon NOVAK Facility:[facility] Start: 10-27-2024 Registered Referred Karon casillas MD -[facility] Start: 10-23-2024 ambulatory Monika Horner Luís Facili ty:[facility] Start: 10-23-2024 Registered Referred Karon casillas MD -[facility] Start: 10-20-2024 End: 10-20-[address] Monika Staley MD Work Phone: -[facility] Start: 10-20-2024 End: 10-20-2024 Departed Referred Karon Corrales MD -[facility] Start: 10-20-2024 Registered Referred Karon casillas MD -[facility] Start: 10-20-2024 End: 10-20-2024 ambulatory Carlaamber Nubiashellie NOVAK Facility:[facility] Start: 10-16-2024 ambulatory Monika Horner Luís Facili ty:[facility] Start: 10-16-2024 Registered Referred Karon casillas MD -[facility] Start: 10-13-2024 ambulatory Carlos NOVAK Faci lity:[facility] Start: 10-13-2024 Registered Referred Carlos Cavazos - [facility] Start: 10-09-2024 ambulatory Shiela Luís Facili ty:[facility] Start: 10-09-2024 Registered Referred Karon casillas MD -[facility] Start: 10-06-2024 ambulatory Carlos NOVAK Faci lity:[facility] Start: 10-06-2024 Registered Referred Carlos Reeder [facility] Start: 10-02-2024 ambulatory Shiela Luís Facili ty:[facility] Start: 10-02-2024 Registered Referred Karon casillas MD -[facility] Start: 09-30-2024 End: 09-30-[address] Monika Staley MD Work Phone: [facility] Work Phone: Start: 09-30-2024 End: 09-30-2024 Departed Referred Karon Corrales MD -[facility] Start: 09-30-2024 Registered Referred Karon casillas MD -[facility] Start: 09-30-2024 End: 09-30-2024 ambulatory Karon NOVAK Facility:[facility] Start: 09-25-2024 ambulatory Monika Carlos ty:[facility] Start: 09-25-2024 Registered Referred Karon casillas MD -[facility] Start: 09-22-2024 End: 09-22-[address] Monika Staley MD Work Phone: -[facility] Start: 09-22-2024 End: 09-22-2024 Departed Referred Karon Corrales MD -[facility] Start: 09-22-2024 Registered Referred Karon casillas MD -[facility] Start: 09-22-2024 End: 09-22-2024 ambulatory Karon NOVAK Facility:[facility] Start: 09-18-2024 End: 09-18-[address] Monika Staley MD Work Phone: [facility] Start: 09-18-2024 End: 09-18-2024 Departed Referred Karon Corrales MD -[facility] Start: 09-18-2024 Registered Referred Karon casillas MD -[facility] Start: 09-18-2024 End: 09-18-2024 ambulatory Karon NOVAK Facility:[facility] Start: 09-15-2024 End: 09-15-[address] Monika Staley MD Work Phone: [facility] Work Phone: Start: 09-15-2024 End: 09-15-2024 Departed Referred Carlos Cavazos -[facility] Start: 09-15-2024 Registered Referred Carlos Lópezsaviri - [facility] Start: 09-15-2024 End: 09-15-2024 ambulatory Carlos Cavazos OLS Facility:[facility] Start: 09-11-2024 ambulatory Karon vidales OLS Facility:[facility] Start: 09-11-2024 Registered Referred Karon casillas MD -[facility] Start: 09-08-2024 End: 09-08-[address] Monika Staley MD Work Phone: [facility] Work Phone: Start: 09-08-2024 End: 09-08-2024 Departed Referred Karon Corrales MD -[facility] Start: 09-08-2024 Registered Referred Karon casillas MD -[facility] Start: 09-08-2024 End: 09-08-2024 ambulatory Karon NOVAK Facility:[facility] Start: 09-04-2024 End: 09-04-2024 Departed Referred Carlos Lópezsaviri -[facility] Start: 09-04-2024 Registered Referred Carlos Lópezsaros - [facility] Start: 09-04-2024 End: 09-04-2024 ambulatory Carlos NOVAK Facility:[facility] Start: 09-01-2024 End: 09-01-[address] Monika Staley MD Work Phone: [facility] Work Phone: Start: 09-01-2024 End: 09-01-2024 Departed Referred Carlos Cavazos -[facility] Start: 09-01-2024 Registered Referred Carlos Maribelros - [facility] Start: 09-01-2024 End: 09-01-2024 ambulatory Carlos NOVAK Facility:[facility] Start: 08-28-2024 End: 08-28-[address] Monika Staley MD Work Phone: [facility] Work Phone: Start: 08-28-2024 End: 08-28-2024 Departed Referred Carlos Abdelrahmanviri -[facility] Start: 08-28-2024 Registered Referred Carlos Kenny - [facility] Start: 08-28-2024 End: 08-28-2024 ambulatory Carlos NOVAK Facility:[facility] Start: 08-25-2024 End: 08-25-[address] Monika Staley MD Work Phone: [facility] Work Phone: Start: 08-25-2024 End: 08-25-2024 Departed Referred Karon Corrales MD -[facility] Start: 08-25-2024 Registered Referred Karon casillas MD -[facility] Start: 08-25-2024 End: 08-25-2024 ambulatory Karon NOVAK Facility:[facility] Start: 08-21-2024 End: 08-21-[address] Monika Staley MD Work Phone: [facility] Work Phone: Start: 08-21-2024 End: 08-21-2024 Departed Referred Karon Corrales MD -[facility] Start: 08-21-2024 Registered Referred Karon casillas MD -[facility] Start: 08-21-2024 End: 08-21-2024 ambulatory Karon NOVAK Facility:[facility] Start: 08-18-2024 End: 08-18-[address] Monika Staley MD Work Phone: [facility] Work Phone: Start: 08-18-2024 End: 08-18-2024 Departed Referred Karon Corrales MD -[facility] Start: 08-18-2024 Registered Referred Karon casillas MD -[facility] Start: 08-18-2024 End: 08-18-2024 ambulatory Karon Corrales OLS Facility:[facility] Start: 08-14-2024 End: 08-14-[address] Monika Staley MD Work Phone: [facility] Work Phone: Start: 08-14-2024 End: 08-14-2024 Departed Referred Karon Corrales MD -[facility] Start: 08-14-2024 Registered Referred Karon casillas MD -[facility] Start: 08-14-2024 End: 08-14-2024 ambulatory Karon Corrales OLS Facility:[facility] Start: 08-11-2024 End: 08-11-2024 Departed Referred Karon Corrales MD -[facility] Start: 08-11-2024 Registered Referred Karon casillas MD -[facility] Start: 08-11-2024 End: 08-11-2024 ambulatory Karon Corrales OLS Facility:[facility] Start: 08-07-2024 End: 08-07-2024 Departed Referred Carlos Cavazos -[facility] Start: 08-07-2024 Registered Referred Carlos Cavazos - [facility] Start: 08-07-2024 End: 08-07-2024 ambulatory Carlos Cavazos OLS Facility:[facility] Start: 08-04-2024 End: 08-04-[address] Monika Staley MD Work Phone: [facility] Work Phone: Start: 08-04-2024 End: 08-04-2024 Departed Referred Carlos Cavazos -[facility] Start: 08-04-2024 Registered Referred Carlos Cavazos - [facility] Start: 08-04-2024 End: 08-04-2024 ambulatory Carlos Cavazos OLS Facility:[facility] Start: 07-31-2024 End: 07-31-[address] Monika Staley MD Work Phone: [facility] Work Phone: Start: 07-31-2024 End: 07-31-2024 Departed Referred Karon [facility] Start: 07-31-2024 Registered Referred Karon [facility]ary [facility] Start: 07-31-2024 End: 07-31-2024 ambulatory Karon NOVAK Facility:[facility] Start: 07-28-2024 End: 07-28-[address] Monika Staley MD Work Phone: [facility] Work Phone: Start: 07-28-2024 End: 07-28-2024 Departed Referred Karon Corrales MD [facility] Start: 07-28-2024 Registered Referred Karon casillas MD -[facility] Start: 07-28-2024 End: 07-28-2024 ambulatory Karon NOVAK Facility:[facility] Start: 07-25-2024 End: 07-25-[address] Monika Staley MD Work Phone: [facility] Work Phone: Start: 07-25-2024 End: 07-25-2024 Departed Referred [facility] Start: 07-25-2024 Registered Referred Carlos Campbelluary [facility] Start: 07-24-2024 End: 07-25-[address] Monika Staley MD Work Phone: [facility] Work Phone: Start: 07-24-2024 End: 07-24-2024 Departed Referred Karon Corrales MD -[facility] Start: 07-24-2024 Registered Referred Karon casillas MD -[facility] Start: 07-24-2024 End: 07-24-2024 ambulatory Mahamber Farmera OLS Facility:[facility] Start: 07-21-2024 End: 07-21-[address] Monika Staley MD Work Phone: [facility] Work Phone: Start: 07-21-2024 End: 07-21-2024 Departed Referred Karon Corrales MD -[facility] Start: 07-21-2024 Registered Referred Karon casillas MD -[facility] Start: 07-21-2024 End: 07-21-2024 ambulatory Carlaamber Davidshina OLS Facility:[facility] Start: 07-17-2024 End: 07-17-[address] Monika Staley MD Work Phone: [facility] Work Phone: Start: 07-17-2024 End: 07-17-2024 Departed Referred Karon Corrales MD -[facility] Start: 07-17-2024 Registered Referred Karon casillas MD -[facility] Start: 07-17-2024 End: 07-17-2024 ambulatory Karon Davidinga OLS Facility:[facility] Start: 07-14-2024 End: 07-14-[address] Monika Staley MD Work Phone: [facility] Work Phone: Start: 07-14-2024 End: 07-14-2024 Departed Referred Carlos Abdelrahmanviri -[facility] Start: 07-14-2024 Registered Referred Carlos Kenny - [facility] Start: 07-14-2024 End: 07-14-2024 ambulatory Carlos NOVAK Facility:[facility] Start: 07-11-2024 End: 07-11-[address] Monika Staley MD Work Phone: [facility] Work Phone: Start: 07-11-2024 End: 07-11-2024 Departed Referred Carlos Kenny -[facility] Start: 07-11-2024 Registered Referred Carlos Kenny - [facility] Start: 07-11-2024 End: 07-11-2024 ambulatory Carlos NOVAK Facility:[facility] Start: 07-07-2024 End: 07-07-[address] Monika Staley MD Work Phone: [facility] Work Phone: Start: 07-07-2024 End: 07-07-2024 Departed Referred Karon Corrales MD -[facility] Start: 07-07-2024 [facility] Start: 07-07-2024 End: 07-07-2024 ambulatory Karon NOVAK Facility:[facility] Start: 07-03-2024 End: 07-03-[address] Monika Staley MD Work Phone: [facility] Work Phone: Start: 07-03-2024 End: 07-03-2024 Departed Referred Kvng Crisostomo MD -[facility] Start: 07-03-2024 Registered Referred Kvng Crisostomo MD -[facility] Start: 07-03-2024 End: 07-03-2024 ambulatory Kvng NOVAK Facility:[facility] Start: 06-30-2024 End: 06-30-[address] Monika Staley MD Work Phone: [facility] Work Phone: Start: 06-30-2024 End: 06-30-2024 Departed Referred Kvng Crisostomo MD -[facility] Start: 06-30-2024 Registered Referred Kvng Crisostomo MD -[facility] Start: 06-30-2024 End: 06-30-2024 ambulatory Kvng NOVAK Facility:[facility] Start: 06-26-2024 ambulatory Kvng NOVAK Fac ility:[facility] Start: 06-26-2024 Registered Referred Kvng Crisostomo MD -[facility] Start: 06-23-2024 End: 06-23-[address] Monika Staley MD Work Phone: [facility] Work Phone: Start: 06-23-2024 End: 06-23-2024 Departed Referred Carlos Cavazos -[facility] Start: 06-23-2024 Registered Referred Carlos Cavazos - [facility] Start: 06-23-2024 End: 06-23-2024 ambulatory Carlos NOVAK Facility:[facility] Start: 06-19-2024 End: 06-19-[address] Monika Staley MD Work Phone: [facility] Work Phone: Start: 06-19-2024 End: 06-19-2024 Departed Referred Kvng Crisostomo MD -[facility] Start: 06-19-2024 Registered Referred Kvng Crisostomo MD -[facility] Start: 06-19-2024 End: 06-19-2024 ambulatory Kvng NOVAK Facility:[facility] Start: 06-16-2024 End: 06-16-[address] Monika Staley MD Work Phone: [facility] Work Phone: Start: 06-16-2024 End: 06-16-2024 Departed Referred Kvng Crisostomo MD -[facility] Start: 06-16-2024 Registered Referred Kvng Crisostomo MD -[facility] Start: 06-16-2024 End: 06-16-2024 ambulatory Kvng NOVAK Facility:[facility] Start: 06-12-2024 End: 06-12-[address] Monika Staley MD Work Phone: [facility] Work Phone: Start: 06-12-2024 End: 06-12-2024 Departed Referred Kvng Crisostomo MD -[facility] Start: 06-12-2024 Registered Referred Kvng Crisostomo MD -[facility] Start: 06-12-2024 End: 06-12-2024 ambulatory Kvng NOVAK Facility:[facility] Start: 06-09-2024 End: 06-09-[address] Monika Staley MD Work Phone: [facility] Work Phone: Start: 06-09-2024 End: 06-09-2024 Departed Referred Carlos [facility] [employer] Start: 06-09-2024 Registered Referred Carlos Reeder [facility] Start: 06-09-2024 End: 06-09-2024 ambulatory Carlos NOVAK Facility:[facility] Start: 06-05-2024 End: 06-05-[address] Monika Staley MD Work Phone: [facility] Work Phone: Start: 06-05-2024 End: 06-05-2024 [facility] Start: 06-05-2024 End: 06-05-2024 ambulatory Kvng NOVAK Facility:[facility] Start: 06-02-2024 End: 06-02-[address] Monika Staley MD Work Phone: [facility] Work Phone: Start: 06-02-2024 End: 06-02-2024 Departed Referred Kvng Crisostomo MD -[facility] Start: 06-02-2024 Registered Referred Kvng Crisostomo MD -[facility] Start: 06-02-2024 End: 06-02-2024 ambulatory Kvng NOVAK Facility:[facility] Start: 05-29-2024 End: 05-29-[address] Monika Staley MD Work Phone: [facility] Work Phone: Start: 05-29-2024 End: 05-29-2024 Departed Referred Kvng Crisostomo MD -[facility] Start: 05-29-2024 Registered Referred Kvng Crisostomo MD -[facility] Start: 05-29-2024 End: 05-29-2024 ambulatory Kvng NOVAK Facility:[facility] Start: 05-26-2024 End: 05-26-[address] Monika Staley MD Work Phone: [facility] Work Phone: Start: 05-26-2024 End: 05-26-2024 [facility] Start: 05-26-2024 Registered Referred Carlos Reeder [facility] Start: 05-26-2024 End: 05-26-2024 ambulatory Carlos NOVAK Facility:[facility] Start: 05-22-2024 ambulatory Kvng NOVAK Fac ility:[facility] Start: 05-22-2024 [facility] Start: 05-20-2024 End: 05-20-2024 [facility] Start: 05-19-2024 End: 05-20-2024 ambulatory Kvng Jonesluis enrique NOVAK Facility:[facility] Start: 05-19-2024 Registered Referred Kvng Crisostomo MD -[facility] Start: 05-15-2024 End: 05-15-2024 Departed Referred Kvng Crisostomo MD -[facility] Start: 05-15-2024 End: 05-15-2024 ambulatory vKng Jonesluis enrique NOVAK Facility:[facility] Start: 05-12-2024 End: 05-12-2024 Departed Referred Carlos Cavazos -[facility] Start: 05-12-2024 End: 05-12-2024 ambulatory Carlos NOVAK Facility:[facility] Start: 05-09-2024 End: 05-09-2024 Departed Referred Kvng Crisostomo MD -[facility] Start: 05-09-2024 End: 05-09-2024 ambulatory Kvng Jonesluis enrique NOVAK Facility:[facility] Start: 05-08-2024 End: 05-08-2024 Departed Referred Kvng Crisostomo MD -[facility] Start: 05-08-2024 End: 05-08-2024 ambulatory Kvng Jonesluis enrique NOVAK Facility:[facility] Start: 05-05-2024 End: 05-05-2024 Departed Referred Kvng Crisostomo MD -[facility] Start: 05-05-2024 End: 05-05-2024 ambulatory Kvng Jonesluis enrique NOVAK Facility:[facility] Start: 05-01-2024 End: 05-01-2024 Departed Referred Kvng Crisostomo MD -[facility] Start: 05-01-2024 End: 05-01-2024 ambulatory Vicenterocio Jonesluis enrique NOVAK Facility:[facility] Start: 04-28-2024 End: 04-28-2024 Departed Referred Carlos Cavazos -[facility] Start: 04-28-2024 End: 04-28-2024 ambulatory Carlos NOVAK Facility:[facility] Start: 04-24-2024 End: 04-24-2024 Departed Referred Kvng Crisostomo MD -[facility] Start: 04-24-2024 End: 04-24-2024 ambulatory Avisgreson Andressa NOVAK Facility:[facility] Start: 04-21-2024 End: 04-21-2024 Departed Referred Carlos Cavazos -[facility] Start: 04-21-2024 End: 04-21-2024 ambulatory Carlos NOVAK Facility:[facility] Start: 04-17-2024 ambulatory Kvng Andressa NOVAK Fac ility:[facility] Start: 04-17-2024 Registered Referred Kvng Crisostomo MD -[facility] Start: 04-14-2024 ambulatory AviskarolVijay NOVAK Fac ility:[facility] Start: 04-14-2024 Registered Referred Kvng Crisostomo MD -[facility] Start: 04-10-2024 End: 04-10-2024 Departed Referred Kvng Crisostomo MD -[facility] Start: 04-10-2024 End: 04-10-2024 ambulatory Kvng NOVAK Facility:[facility] Start: 04-07-2024 End: 04-07-2024 Departed Referred Carlos Cavazos -[facility] Start: 04-07-2024 End: 04-07-2024 ambulatory Carlos NOVAK Facility:[facility] Start: 04-04-2024 ambulatory Vicenterocio Andressa NOVAK Fac ility:[facility] Start: 04-04-2024 Registered Referred Kvng Crisostomo MD -[facility] Start: 03-31-2024 End: 03-31-2024 Departed Referred Carlos Cavazos -[facility] Start: 03-31-2024 End: 03-31-2024 ambulatory Carlos NOVAK Facility:[facility] Start: 03-27-2024 End: 03-27-2024 Departed Referred [facility] -[facility] Start: 03-27-2024 End: 03-27-2024 ambulatory [facility] Facility:[facility] Start: 03-24-2024 End: 03-24-2024 Departed Referred Kvng Crisostomo MD -[facility] Start: 03-24-2024 End: 03-24-2024 ambulatory Kvng NOVAK Facility:[facility] Start: 03-20-2024 End: 03-20-2024 Departed Referred [facility] -[facility] Start: 03-20-2024 End: 03-20-2024 ambulatory [facility] Facility:[facility] Start: 03-19-2024 End: 03-19-2024 Departed Referred Kvng Crisostomo MD -[facility] Start: 03-19-2024 End: 03-19-2024 ambulatory Kvng NOVAK Facility:[facility] Start: 03-18-2024 End: 03-18-2024 Departed Referred [facility] -[facility] Start: 03-18-2024 End: 03-18-2024 ambulatory [facility] Facility:[facility] Start: 03-17-2024 End: 03-17-2024 Departed Referred [facility] -[facility] Start: 03-17-2024 End: 03-17-2024 ambulatory [facility] Facility:[facility] Start: 03-14-2024 End: 03-14-2024 Departed Referred Carlos Cavazos -[facility] Start: 03-14-2024 End: 03-14-2024 ambulatory Carlos NOVAK Facility:[facility] Start: 03-13-2024 End: 03-13-2024 Departed Referred [facility] -[facility] Start: 03-13-2024 End: 03-13-2024 ambulatory [facility] Facility:[facility] Start: 03-10-2024 End: 03-10-2024 ambulatory [facility] Facility:[facility] Start: 03-06-2024 End: 03-06-2024 ambulatory [facility] Facility:[facility] Start: 03-03-2024 End: 03-03-2024 [facility] Facility:[facility] Start: 02-28-2024 End: 02-28-2024 [facility] Facility:[facility] Start: 09-13-2023 End: 09-13-2023 ambulatory [facility] Start: 09-13-2023 End: 09-13-2023 Office outpatient visit 25 minutes Rebecca Buck MD Work Phone: [facility] Comment on above: Left flank pain (Christina magui Dx); BPH with urinary obstruction; History of kidney stones Start: 09-06-2023 End: 09-07-2023 ambulatory [facility] Start: 09-06-2023 End: 09-06-2023 Subsequent hospital visit by physician Rebecca Buck MD Work Phone: [facility] CT Imaging Comment on above: Left flank pain; Calculus of ureter Start: 08-31-2023 ambulatory Eloise Stern RN [facility] Communication Start: 08-31-2023 [facility] encounter [facility] Start: 08-21-2023 Telephone encounter Rebecca Buck MD Work Phone: [facility] Clinical Communication Comment on above: CT appt [facility] advice Start: 08-21-[address] [facility] Start: 08-13-2023 End: 08-13-2023 ambulatory [facility] Start: 08-13-2023 End: 08-13-2023 Office outpatient new 45 minutes Rebecca Buck MD Work Phone: [facility] Comment on above: Left flank pain (Christina magui Dx); Calculus of ureter; Disease of prostate; BPH with urinary obstruction Start: 08-03-2023 End: 08-03-2023 ambulatory [facility] Work Phone: Start: 08-03-2023 End: 08-03-2023 Departed Referred [facility] Start: 07-20-2023 End: 07-20-2023 ambulatory [facility] Work Phone: Start: 07-20-2023 End: 07-20-2023 Departed Referred [facility] Start: 07-20-2023 Registered Referred [facility] Start: 07-18-2023 End: 07-18-2023 ambulatory [facility] Work Phone: Start: 07-18-2023 End: 07-18-2023 [facility] Start: 07-18-2023 [facility] Start: 07-16-2023 End: 07-16-2023 ambulatory [facility] Work Phone: Start: 07-16-2023 End: 07-16-2023 [facility] Start: 07-16-2023 [facility] Start: 07-13-2023 End: 07-13-2023 ambulatory [facility] Work Phone: Start: 07-13-2023 End: 07-13-2023 [facility] Start: 07-13-2023 Registered Referred [facility] Start: 07-12-2023 End: 07-12-2023 ambulatory [facility] Work Phone: Start: 07-12-2023 End: 07-12-2023 [facility] Start: 07-12-2023 Registered Referred [facility] Start: 07-05-2023 End: 07-05-2023 ambulatory [facility] Work Phone: Start: 07-05-2023 End: 07-05-2023 [facility] Start: 07-05-2023 [facility] Start: 07-02-2023 [facility] Start: 06-28-2023 End: 06-28-2023 ambulatory [facility] Work Phone: Start: 06-28-2023 End: 06-28-2023 [facility] Start: 06-28-2023 [facility] Start: 06-25-2023 Telephone encounter Rebecca Buck MD Work Phone: [facility] Start: 06-25-2023 End: 06-25-2023 ambulatory [facility] Work Phone: Start: 06-25-2023 End: 06-25-2023 [facility] Start: 06-25-[facility]23 [facility] Start: 06-21-2023 End: 06-21-2023 ambulatory [facility] Work Phone: Start: 06-21-2023 End: 06-21-2023 [facility] Start: 06-21-2023 [facility] Start: 06-13-2023 End: 06-13-2023 ambulatory [facility] Work Phone: Start: 06-13-2023 End: 06-13-2023 [facility] Start: 06-06-2023 End: 06-06-2023 ambulatory [facility] Work Phone: Start: 06-06-2023 End: 06-06-2023 [facility] Start: 06-06-2023 [facility] Start: 05-23-2023 End: 05-23-2023 ambulatory [facility] Work Phone: Start: 05-23-2023 End: 05-23-2023 Departed Referred [facility] Start: 05-09-2023 End: 05-09-2023 Departed Referred [facility] Start: 05-09-2023 Registered Referred [facility] Start: 04-23-2023 End: 04-23-2023 Departed Referred [facility] Start: 04-09-2023 End: 04-09-2023 ambulatory [facility] Work Phone: Start: 04-09-2023 End: 04-09-2023 Departed Referred [facility] Start: 04-09-2023 Registered Referred [facility] Start: 04-02-2023 End: 04-02-2023 ambulatory [facility] Work Phone: Start: 04-02-2023 End: 04-02-2023 [facility] Start: 04-02-2023 Registered Referred [facility] Start: 03-26-2023 End: 03-26-2023 ambulatory [facility] Work Phone: Start: 03-26-2023 End: 03-26-2023 [facility] Start: 03-26-2023 Registered Referred [facility] Start: 03-22-2023 End: 03-22-2023 ambulatory [facility] Work Phone: Start: 03-22-2023 End: 03-22-2023 [facility] Start: 03-22-2023 Registered Referred [facility] Start: 03-08-2023 End: 03-08-2023 ambulatory [facility] Work Phone: Start: 03-08-2023 End: 03-08-2023 Departed Referred [facility] Start: 02-22-2023 End: 02-22-2023 ambulatory [facility] Work Phone: Start: 02-22-2023 End: 02-22-2023 Departed Referred [facility] Start: 02-22-2023 Registered Referred [facility] Start: 02-15-2023 End: 02-15-2023 ambulatory [facility] Work Phone: Start: 02-15-2023 End: 02-15-2023 [facility] Start: 02-15-2023 Registered Referred [facility] Start: 02-08-2023 End: 02-08-2023 ambulatory [facility] Work Phone: Start: 02-08-2023 End: 02-08-2023 [facility] Start: 01-31-2023 End: 01-31-2023 ambulatory [facility] Work Phone: Start: 01-31-2023 End: 01-31-2023 Departed Referred [facility] Start: 01-31-2023 Registered Referred [facility] Start: 01-29-2023 End: 01-29-2023 Departed Referred [facility] Start: 01-29-2023 Registered Referred [facility] Start: 01-26-2023 End: 01-26-2023 Departed Referred [facility] Start: 01-26-2023 Registered Referred [facility] Start: 01-24-2023 End: 01-24-2023 Departed Referred [facility] Start: 01-24-2023 Registered Referred [facility] Start: 01-22-2023 End: 01-22-2023 ambulatory [facility] Work Phone: Start: 01-22-2023 End: 01-22-2023 Departed Referred [facility] Start: 01-22-2023 Registered Referred [facility] Start: 01-10-2023 End: 01-10-2023 ambulatory [facility] Work Phone: Start: 01-10-2023 End: 01-10-2023 [facility] Start: 01-10-2023 Registered Referred [facility] Start: 12-27-2022 End: 12-27-2022 ambulatory [facility] Work Phone: Start: 12-27-2022 End: 12-27-2022 [facility] Start: 12-27-2022 Registered Referred [facility] Start: 12-21-2022 End: 12-21-2022 ambulatory [facility] Work Phone: Start: 12-21-2022 End: 12-21-2022 [facility] Start: 12-21-2022 Registered Referred [facility] Start: 12-14-2022 End: 12-14-2022 ambulatory [facility] Work Phone: Start: 12-14-2022 End: 12-14-2022 [facility]ed [facility] Start: 12-14-2022 Registered Ref[facility] Start: 12-07-2022 End: 12-07-2022 ambulatory [facility] Work Phone: Start: 12-07-2022 End: 12-07-2022 Departed Referred [facility] Start: 12-07-2022 Registered Referred [facility] Start: 11-24-2022 End: 11-24-2022 ambulatory [facility] Work Phone: Start: 11-24-2022 End: 11-24-2022 Departed Referred [facility] Start: 11-24-2022 Registered Referred [facility] Start: 11-23-2022 End: 11-23-2022 ambulatory [facility] Work Phone: Start: 11-23-2022 End: 11-23-2022 [facility]ed [facility] Start: 11-23-2022 [facility] Start: 11-22-2022 End: 11-22-2022 ambulatory [facility] Work Phone: Start: 11-22-2022 End: 11-22-2022 [facility]ed [facility] Start: 11-22-2022 [facility] Start: 11-09-2022 End: 11-09-2022 ambulatory [facility] Work Phone: Start: 11-09-2022 End: 11-09-2022 [facility]ed [facility] Start: 11-09-2022 Registered Referred [facility] Start: 10-26-2022 End: 10-26-2022 Departed Referred [facility] Start: 10-26-2022 Registered Referred [facility] Start: 10-12-2022 End: 10-12-2022 ambulatory [facility] Work Phone: Start: 10-12-2022 End: 10-12-2022 [facility]ed [facility] Start: 10-12-2022 Registered Ref[facility] Start: 10-05-2022 End: 10-05-2022 Departed Referred [facility] Start: 10-05-2022 Registered Referred [facility] Start: 09-28-2022 End: 09-28-2022 ambulatory [facility] Work Phone: Start: 09-28-2022 End: 09-28-2022 [facility] Start: 09-14-2022 End: 09-14-2022 [facility]ed [facility] Start: 08-31-2022 End: 08-31-2022 [facility]ed [facility] Start: 08-31-2022 [facility] Start: 08-23-2022 End: 08-23-2022 ambulatory [facility] Work Phone: Start: 08-23-2022 End: 08-23-2022 [facility] Start: 08-23-2022 [facility] Start: 08-17-2022 End: 08-17-2022 ambulatory [facility] Work Phone: Start: 08-17-2022 End: 08-17-2022 [facility]ed [facility] Start: 08-17-2022 [facility] Start: 08-14-2022 End: 08-14-2022 ambulatory [facility] Work Phone: Start: 08-14-2022 End: 08-14-2022 [facility]ed [facility] Start: 08-14-2022 [facility] Start: 07-31-2022 End: 07-31-2022 ambulatory [facility] Work Phone: Start: 07-31-2022 End: 07-31-2022 Departed Referred [facility] Start: 07-31-2022 [facility] Start: 07-24-2022 End: 07-24-2022 ambulatory [facility] Work Phone: Start: 07-24-2022 End: 07-24-2022 Departed Referred [facility] Start: 07-24-2022 [facility] Start: 07-20-2022 End: 07-20-2022 Departed Referred [facility] Start: 07-20-2022 Registered Referred [facility] Start: 07-17-2022 End: 07-17-2022 [facility]ed [facility] Start: 07-17-2022 [facility] Start: 07-11-2022 Registered [facility] Start: 07-10-2022 End: 07-10-2022 ambulatory [facility] Work Phone: Start: 07-10-2022 End: 07-10-2022 Departed Referred [facility] Start: 07-10-2022 Registered Referred [facility] Start: 07-03-2022 End: 07-03-2022 ambulatory [facility] Work Phone: Start: 07-03-2022 End: 07-03-2022 Departed Referred [facility] Start: 07-03-2022 Registered Referred [facility] Start: 06-27-2022 End: 06-27-2022 ambulatory [facility] Work Phone: Start: 06-27-2022 End: 06-27-2022 Departed Referred [facility] Start: 06-27-2022 Registered Referred [facility] Start: 06-13-2022 End: 06-13-2022 ambulatory [facility] Work Phone: Start: 06-13-2022 End: 06-13-2022 [facility]ed [facility] Start: 06-13-2022 [facility] Start: 06-06-2022 End: 06-06-2022 ambulatory [facility] Work Phone: Start: 06-06-2022 End: 06-06-2022 [facility]ed [facility] Start: 06-06-2022 [facility] Start: 05-30-2022 End: 05-30-2022 ambulatory [facility] Work Phone: Start: 05-30-2022 End: 05-30-2022 [facility]ed [facility] Start: 05-30-2022 [facility] Start: 05-16-2022 End: 05-16-2022 ambulatory [facility] Work Phone: Start: 05-16-2022 End: 05-16-2022 [facility]ed [facility] Start: 05-16-2022 [facility] Start: 05-02-2022 End: 05-02-2022 ambulatory [facility] Work Phone: Start: 05-02-2022 End: 05-02-2022 [facility]ed [facility] Start: 05-02-2022 [facility] Start: 04-27-2022 End: 04-27-2022 ambulatory [facility] Work Phone: Start: 04-27-2022 End: 04-27-2022 [facility]ed [facility] Start: 04-27-2022 Registered Referred [facility] Start: 04-26-2022 End: 04-26-2022 ambulatory [facility] Work Phone: Start: 04-26-2022 End: 04-26-2022 Departed Referred [facility] Start: 04-11-2022 End: 04-11-2022 ambulatory [facility] Work Phone: Start: 04-11-2022 End: 04-11-2022 Departed Referred [facility] Start: 03-28-2022 End: 03-28-2022 Departed Referred [facility] Start: 03-28-2022 Registered Referred [facility] Start: 03-23-2022 End: 03-23-2022 [facility] Start: 03-23-2022 Registered Referred [facility] Start: 03-16-2022 End: 03-16-2022 ambulatory [facility] Work Phone: Start: 03-16-2022 End: 03-16-2022 Departed Referred [facility] Start: 03-16-2022 Registered Referred [facility] Start: 03-09-2022 End: 03-09-2022 ambulatory [facility] Work Phone: Start: 03-09-2022 End: 03-09-2022 [facility] Start: 03-09-2022 Registered Referred [facility] Start: 03-06-2022 End: 03-06-2022 ambulatory [facility] Work Phone: Start: 03-06-2022 End: 03-06-2022 [facility]ed [facility] Start: 03-06-2022 Registered Referred [facility] Start: 03-02-2022 End: 03-03-2022 Emergency department patient visit UNKNOWN PROVIDER [facility] Start: 03-02-2022 End: 03-02-2022 Emergency department patient visit Lanette Munguia DO Work Phone: [facility] Emergency Dept Comment on above: Fall, initial encoun ter (Primary Dx); Anticoagulated Start: 02-20-2022 End: 02-20-2022 Departed Referred [facility] Start: 02-20-2022 Registered Referred [facility] Start: 02-13-2022 End: 02-13-2022 ambulatory [facility] Work Phone: Start: 02-13-2022 End: 02-13-2022 Departed Referred [facility] Start: 02-13-2022 Registered Referred [facility] Start: 02-06-2022 End: 02-06-2022 ambulatory [facility] Work Phone: Start: 02-06-2022 End: 02-06-2022 Departed Referred [facility] Start: 02-06-2022 Registered Referred [facility] Start: 01-30-2022 End: 01-30-2022 Departed Referred [facility] Start: 01-30-2022 Registered Referred [facility] Start: 01-26-2022 End: 01-26-2022 ambulatory [facility] Work Phone: Start: 01-26-2022 End: 01-26-2022 Departed Referred [facility] Start: 01-26-2022 Registered Referred [facility] Start: 01-19-2022 End: 01-19-2022 ambulatory [facility] Work Phone: Start: 01-19-2022 End: 01-19-2022 [facility]ed [facility] Start: 01-19-2022 [facility] Start: 01-17-2022 ambulatory [facility] Start: 01-10-2022 ambulatory [facility] Start: 01-10-2022 End: 01-10-2022 ambulatory [facility] Work Phone: Start: 01-10-2022 End: 01-10-2022 [facility]ed [facility] Start: 01-10-2022 [facility] Start: 01-06-2022 AUDIT Monika Elias rt Work Phone: [facility] Work Phone: Start: 01-05-2022 End: 01-05-2022 [facility] Start: 01-05-2022 [facility] Start: 12-30-2021 End: 12-30-2021 [facility] Start: 12-30-2021 Registered Referred [facility] Start: 12-28-2021 End: 12-28-2021 ambulatory [facility] Work Phone: Start: 12-28-2021 End: 12-28-2021 [facility] Start: 12-28-2021 [facility] Start: 12-26-2021 End: 12-26-2021 ambulatory [facility] Work Phone: Start: 12-26-2021 End: 12-26-2021 [facility] Start: 12-26-2021 [facility] Start: 12-22-2021 End: 12-22-2021 ambulatory [facility] Work Phone: Start: 12-22-2021 End: 12-22-2021 Departed Referred [facility] Start: 12-22-2021 Registered Referred [facility] Start: 12-22-2021 End: 12-22-2021 [facility] Start: 12-21-2021 End: 12-22-2021 Emergency department patient visit Sharon Olivia MD Work Phone: [facility] Emergency Dept Comment on above: Heel ulceration, lef t, with unspecified severity (HCC) (Primary Dx) Start: 12-19-2021 End: 12-19-2021 ambulatory [facility] Work Phone: Start: 12-19-2021 End: 12-19-2021 Departed Referred [facility] Start: 12-19-2021 Registered Referred [facility] Start: 12-12-2021 End: 12-12-2021 ambulatory [facility] Work Phone: Start: 12-12-2021 End: 12-12-2021 Departed Referred [facility] Start: 12-12-2021 Registered Referred [facility] Start: 12-08-2021 End: 12-08-2021 ambulatory [facility] Work Phone: Start: 12-08-2021 End: 12-08-2021 Departed Referred [facility] Start: 12-08-2021 Registered Referred [facility] Start: 12-05-2021 End: 12-05-2021 ambulatory [facility] Work Phone: Start: 12-05-2021 End: 12-05-2021 Departed Referred [facility] Start: 12-05-2021 [facility] Start: 12-01-2021 End: 12-01-2021 [facility] Start: 12-01-2021 [facility] Start: 11-28-2021 End: 11-28-2021 [facility]ed [facility] Start: 11-28-2021 [facility] Start: 11-25-2021 Rx Renewal Monika Elias rt Work Phone: [id number] Work Phone: Start: 11-23-2021 End: 11-23-2021 [facility]ed [facility] Start: 11-23-2021 [facility] Start: 11-22-2021 End: 11-22-2021 [facility]ed [facility] Start: 11-22-2021 [facility] Start: 11-21-2021 End: 11-21-2021 [facility] Start: 11-15-2021 AUDIT Shiela Jada rt Work Phone: [id number] Work Phone: Start: 11-14-2021 End: 11-14-2021 [facility]ed [facility] Start: 11-14-2021 [facility] Start: 11-08-2021 End: 11-08-2021 Dep[facility]ed [facility] Start: 11-08-2021 [facility] Start: 11-04-2021 End: 11-04-2021 [facility]ed [facility] Start: 11-04-2021 Registered Referred [facility] Start: 10-31-2021 End: 11-01-2021 Emergency department patient visit UNKNOWN PROVIDER [facility] Start: 10-31-2021 End: 11-01-2021 Emergency department patient visit Dante Kim MD Work Phone: [facility] Emergency Dept Comment on above: Other fatigue (Prima ry Dx) Start: 10-31-2021 End: 10-31-2021 Departed Referred [facility] Start: 10-21-2021 End: 10-29-2021 Evaluation and management of inpatient UNKNOWN PROVIDER [facility] Start: 10-21-2021 End: 10-29-2021 Evaluation and management of inpatient Lisa Michelle DO Work Phone: [facility] Comment on above: Leg swelling (Primar y Dx); Acute deep vein thrombosis (DVT) of proximal vein of lower extremity, unspecified laterality (HCC) Start: 10-20-2021 End: 10-20-2021 Departed Referred [facility] Start: 10-17-2021 Telephone encounter Nicole davis MD Work Phone: [facility] Comment on above: Missed Appointment Start: 09-19-2021 End: 09-19-2021 Departed Referred [facility] Start: 11-02-2020 AUDIT Monika Elias rt Work Phone: [facility] Work Phone: Start: 10-27-2020 AUDIT Monika Elias rt Work Phone: [facility] Work Phone: Start: 07-13-2020 Patient encounter procedure Monika Staley [facility] Work Phone: Start: 04-13-2020 Patient encounter procedure Wing Ritter [facility] Work Phone: Start: 04-07-2020 Patient encounter procedure Wing Ritter [facility] Work Phone: Start: 03-18-2020 Patient encounter procedure Wing Ritter [facility] Work Phone: Start: 01-20-2020 Patient encounter procedure Monika Staley MD [id number] Work Phone: Start: 11-13-2019 End: 11-13-2019 Subsequent hospital visit by physician [facility] Comment on above: Non-pressure chronic ulcer left lower leg, 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] Start: 11-06-2019 Patient encounter procedure Monika Staley MD [id number] Work Phone: Start: 06-18-2019 End: 06-18-2019 Subsequent [...] Work Phone: Start: 12-22-2021 C-reactive protein Henry Hidalgo PA Work Phone: Start: 12-22-2021 COVID-19, FLU [...] Start: 10-26-2021 Electroencephalogram w/rec awake&asleep Sarina Pineda [employer] Work Phone: Start: 10-26-2021 Ct head/brain w/o co ntrast material Sarina Pineda [employer] Work Phone: Start: 10-26-2021 Prothrombin time Andres Sheridan MD Work Phone: Start: 10-25-2021 Speech and language therapy regime Sarina Pineda [employer] - [employer] Work Phone: Start: 10-25-2021 Prothrombin time Andres [...] Blood count reticulo cyte automated Ellen Scherer [employer] Work Phone: Start: 10-21-2021 C-reactive protein Jax Scherer [employer] Work Phone: Start: 10-21-2021 Non-invas physiologi c std extremity art 2 level Shruthi Malik [employer] Work Phone: Start: 10-21-2021 Radex calcaneus mini mum 2 views Shruthi Malik [employer] Work Phone: Start: 10-21-2021 Dup-scan xtr veins [...] Comment: Speci men Type: BLOOD SPECIMENOrdering Facility: [facility] Address: [address] [place] [address] Performed By: #### T SCR ####[facility] BLOOD BANKCLIA [id number] [address] Start: 08-04-2021 Antibody screen Comment on above: Order Comment: Speci men Type: BLOOD SPECIMENOrdering Facility: [facility] Address: [address] [place] [address] Performed By: #### T SCR ####[facility] BLOOD BANKCLIA [id number] [address] Start: 08-01-2021 Antibody screen Comment on above: Order Comment: Speci men Type: BLOOD SPECIMENOrdering Facility: [facility] Address: [address] [place] [address] Performed By: #### T SCR ####[facility] BLOOD BANKCLIA [id number] [place] [address] [facility] Start: 06-07-2021 Antibody screen Comment on above: Order Comment: Speci men Type: BLOOD SPECIMEN Performed By: #### T SCR ####[facility] BLOOD BANKCLIA [id number] [place] [address] [facility] Start: 09-02-2020 Lipid 1996 panel - S bradly or Plasma Rebecca Buck MD Work Phone: Start: 04-07-2020 Echocardiography 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 Start: 11-13-2019 Radiologic examinati on tibia & fibula 2 views 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 (Buggy Runner) Debbie Work Phone: Hernia repair Monika melvin History of Cholecystotomy An yvette Staley History of Creation Of Subdural-Peritoneal CSF Shunt Monika Staley History of Interrupt ion Inferior Vena Cava Mchenry Filter Placement Monika Staley Urine culture Plan of Treatment Date Care Activity Detail Author Start: 09-22-2026 DTaP/Tdap/Td vaccine (2 - Td or Tdap) DTaP/Tdap/Td vaccine (2 - Td or Tdap) [facility] Start: 09-22-2026 DTaP/Tdap/Td vaccine (2 - Td) DTaP/Tdap/Td vaccine (2 - Td) [facility] Work Phone: Start: 09-22-2026 DTaP/Tdap/Td Vaccine s (2 - Td or Tdap) DTaP/Tdap/Td Vaccines (2 - Td or Tdap) [facility] Start: 09-02-2025 Lipid panel Lipid Panel [facility] Start: 08-22-2024 DIABETES SCREEN DIABETES SCREEN [facility] Start: 12-04-2023 Lipid panel Lipids [facility] Start: 12-04-2023 Lipid screen Lipid screen [facility] Work Phone: Start: 09-13-2023 End: 09-13-2023 Patient encounter procedure 09/13/2023 11:30 AM EDT [facility] [address] [place] [id number] Rebecca Buck MD [address] [facility] [address] [place] [address] [facility] Start: 08-31-2023 End: 08-31-2023 Patient encounter procedure 08/31/2023 9:30 AM EDT Appointment [facility] [address] [place] [id number] Rebecca Buck MD [address] [facility] [address] [place] [address] [facility] Start: 08-13-2023 End: 08-12-2024 Basic metabolic 1998 panel - Serum or Plasma Basic metabolic panel Lab Routine Calculus of ureter Expected: 08/13/2023 (Approximate), Expires: 08/12/2024 [facility] Comment on above: Expected: 08/13/2023 (Approximate), Expires: 08/12/2024 Start: 08-13-2023 End: 08-12-2024 CT Abdomen WO contrast CT abdomen pelvis wo IV contrast Imaging Routine Left flank pain Calculus of ureter Expected: 08/13/2023, Expires: 08/12/2024 [facility] Comment on above: Expected: 08/13/2023 , Expires: 08/12/2024 Start: 08-13-2023 End: 02-12-2024 PSA, Monitoring ([facility]) PSA, Monitoring ([facility]) Lab Routine Disease of prostate Expected: 08/13/2023 (Approximate), Expires: 02/12/2024 [facility] Work Phone: Comment on above: Expected: 08/13/2023 (Approximate), Expires: 02/12/2024 Start: 08-13-2023 End: 08-13-2023 Patient encounter procedure 08/13/2023 10:00 AM EDT Office Visit [facility] [address] [facility] [address] [place] [phone] Rebecca Buck MD [address] [facility] [address] [place] [address] [facility] Start: 07-17-2023 Bacteria identified in Urine by Culture [facility] Start: 07-17-2023 [facility] Start: 07-16-2023 Measurement of substance [facility] Start: 05-07-2023 Medicare Advantage A nnual Wellness Visit Medicare Advantage Annual Wellness Visit [facility] Start: 03-02-2023 Creatinine measurement Creatinine Le carmela [facility] Start: 03-02-2023 Potassium measurement Potassium Leve l [facility] Start: 08-22-2022 Diabetes mellitus screening Diabetes Screening [facility] Start: 01-05-2022 Influenza vaccination [facility] Start: 12-23-2021 EPV, Provider: Wing Ritter, Status: Pen, Time: 9:30 AM EPV, Provider: Wign Ritter, Status: Pen, Time: 9:30 AM [id number] co Work Phone: Start: 12-05-2021 Influenza vaccination Flu vaccine (# 1) [facility] Start: 12-05-2021 Blood chemistry [facility] Work Phone: Start: 12-05-2021 Complete blood count [facility] Work Phone: Start: 12-05-2021 [facility] Work Phone: Start: 12-01-2021 [facility] Work Phone: Start: 08-05-2021 COVID-19 VACCINE (4 - Booster for Moderna series) COVID-19 VACCINE (4 - Booster for Moderna series) [facility] Start: 08-05-2021 COVID-19 Vaccine (4 - Booster for Pfizer series) COVID-19 Vaccine (4 - Booster for Pfizer series) [facility] Start: 06-01-2021 COVID-19 Vaccine (4 - Booster for Pfizer series) COVID-19 Vaccine (4 - Booster for Pfizer series) [facility] Start: 05-07-2021 ADVANCE DIRECTIVE DISCUSSION ADVANCE DIRECTIVE DISCUSSION [facility] Start: 08-11-2020 Screening for malign ant neoplasm of colon [facility] Start: 07-30-2020 Screening for malign ant neoplasm of colon [facility] Start: 01-20-2020 Echocardiography Echocardiogram [facility] [address] [place] Work Phone: Start: 01-06-2020 Influenza vaccination INFLUENZA (#1) [facility] Start: 12-04-2019 Annual Wellness Visi t (AWV) Annual Wellness Visit (AWV) [facility] Start: 12-04-2019 Creatinine monitoring Creat[facility] mon [facility] Work Phone: Start: 12-04-2019 Hepatitis C screen Hepatitis C scree n [facility] Work Phone: Comment on above: Postponed from 05/06 (Patient Refused) Start: 12-04-2019 Potassium monitoring Potassium monit oring [facility] Work Phone: Start: 12-04-2019 Prostate specific an tigen measurement Prostate Specific Antigen (PSA) Screening or Monitoring [facility] Start: 12-04-2019 Shingles Vaccine (1 of 2) Day gles Vaccine (1 of 2) [facility] Work Phone: Comment on above: Postponed from 05/06 (Patient Refused) Start: 06-07-2019 Colon Cancer Screen FIT/FOBT [facility] Work Phone: Start: 08-14-2017 LIPID SCREEN LIPID SCREEN [facility] Start: 2017 ADVANCE DIRECTIVE DISCUSSION ADVANCE DIRECTIVE DISCUSSION [facility] Start: 2017 PNEUMOCOCCAL: 65+ (1 - PCV) PNEUMOCOCCAL: 65+ (1 - PCV) [facility] Start: 2017 PNEUMOVAX AGE 65 AND OVER WITH 5YR LOOKBACK (#1) PNEUMOVAX AGE 65 AND OVER WITH 5YR LOOKBACK (#1) [facility] Start: 04-14-2016 DIABETES SCREEN DIABETES SCREEN [place] Start: 2012 RSV Immunization age d 60 or older (1 - 1-dose 60+ series) RSV Immunization aged 60 or older (1 - 1-dose 60+ series) [facility] Start: 2007 PROSTATE CANCER SCRE ENING DISCUSSION PROSTATE CANCER SCREENING DISCUSSION [facility] Start: 2002 Shingles vaccine (1 of 2) Day gles vaccine (1 of 2) [facility] Start: 2002 SHINGRIX VACCINE (1 of 2) DAY GRIX VACCINE (1 of 2) [facility] Start: 2002 Tuberculosis screening COLOREC MONIQUE CANCER SCREENING,SEE MODIFIER [facility] Start: 2002 Zoster Vaccines (1 of 2) Zoste r Vaccines (1 of 2) [facility] Start: 1997 COLOGUARD (FIT-DNA) COLOGUARD (FIT-D NA) [facility] Start: 1997 Colonoscopy COLONOSCOPY [facility] Start: 1997 COLORECTAL CANCER SCREENING COLORECTAL CANCER SCREENING [facility] Start: [address] COLONOGRAPHY [place] Start: 1997 FECAL OCCULT BLOOD FECAL OCCULT BLOO D [facility] Start: 1997 Screening for malign ant neoplasm of colon [facility] Start: 1997 SIGMOIDOSCOPY SIGMOIDOSCOPY [facility] Start: 1987 Diabetes screen Diabetes screen [facility] Start: 1971 Urine microalbumin profile DTAP,TDAP,TD (1 - Tdap) [facility] Start: 1970 ANNUAL PCP TEAM CLAM PICKER KEESHA DISEASE VISIT ANNUAL PCP TEAM CHRONIC DISEASE VISIT [facility] Start: 1970 BP CONTROLLED (<130/80) BP CONTROLLE D (<130/80) [facility] Start: 1970 Diabetes mellitus screening Diabetes Screening [facility] Start: 1970 [facility] Start: 1970 Hepatitis C screening S [facility] Start: 1964 Adult depression screening assessment DEPRESSION SCREENING [facility] Start: 1964 Depression Screen Depression Screen [facility] Start: 1962 Diabetic foot examination Diabetes: Foot Exam [facility] Start: 1962 Glaucoma screening Diabetes: R etinopathy Screening [facility] Start: 1962 Preventive dental service Diabetes: Dental Exam [facility] Start: 1950 Echocardiography Echocardiogram [facility] Start: 1950 Hemoglobin A1c measurement Diabetes: Hemoglobin A1C [facility] Start: 1952 Lipid panel Lipid Panel [facility] Start: 1952 Screening for malign ant neoplasm of colon [facility] Bacteria identified in Urine by Culture Urine Culture [facility] Work Phone: End: 03-02-2022 CBC W Auto Differential panel - Blood CBC with Auto Differential Lab Routine One Time for 1 Occurrences starting 03/02/2022 until 03/02/2022 [facility] Work Phone: Comment on above: One Time for 1 Occur rences starting 03/02/2022 until 03/02/2022 End: 03-02-2022 Comprehensive metabolic 2000 panel - Serum or Plasma Comprehensive Metabolic Panel Lab STAT One Time for 1 Occurrences starting 03/02/2022 until 03/02/2022 [facility] Work Phone: Comment on above: One Time for 1 Occur rences starting 03/02/2022 until 03/02/2022 End: 09-06-2023 CT Abdomen WO contrast [facility] Work Phone: Comment on above: Once for 1 Occurrenc es starting 09/06/2023 until 09/06/2023 End: 12-22-2021 Culture, Blood 2 Culture, Blood 2 Microbiology STAT One Time for 1 Occurrences starting 12/22/2021 until 12/22/2021 [facility] Work Phone: Comment on above: One Time for 1 Occur rences starting 12/22/2021 until 12/22/2021 End: 12-22-2021 Microscopic examination of blood, culture Culture, Blood Microbiology STAT One Time for 1 Occurrences starting 12/22/2021 until 12/22/2021 [facility] Work Phone: Comment on above: One Time for 1 Occur rences starting 12/22/2021 until 12/22/2021 Microscopic examinat ion of blood, culture Culture, Blood Microbiology STAT 12/22/2021 12:22 AM EDT [facility] Work Phone: Oxygen therapy [[facility] Data Set] Initiate Oxygen Therapy Protocol Respiratory Care Routine As Needed until discontinued starting 10/21/2021 [facility] Comment on above: As Needed until disc ontinued starting 10/21/2021 Protime-INR Protime-INR Lab Routine Daily until discontinued starting 10/23/2021, 7 completed [facility] Work Phone: Comment on above: Daily until disconti nued starting 10/23/2021, 7 completed End: 03-02-2022 Protime-INR Protime-INR Lab Routine One Time for 1 Occurrences starting 03/02/2022 until 03/02/2022 [facility] Work Phone: Comment on above: One Time for 1 Occur rences starting 03/02/2022 until 03/02/2022 Spirometry panel Incentive stef metry Respiratory Care Routine Daily until discontinued starting 10/21/2021 [facility] Work Phone: Comment on above: Daily until disconti nued starting 10/21/2021 End: 10-21-2021 Wound ostomy eval Wound ostomy eval Wound Ostomy Routine One Time for 1 Occurrences starting 10/21/2021 until 10/21/2021 [facility] Work Phone: Comment on above: One Time for 1 Occur rences starting 10/21/2021 until 10/21/2021 [facility] NEGATED: Highlighted row has been ruled out! Planned Goals not documented [id number] Work Phone: Immunizations Immunization Date Immunization Notes Care Provider Fa [facility] 03-04-2019 influenza, high dose seasonal, preservative-free Sarika Aslas [facility] 12-03-2018 pneumococcal polysac charide vaccine, 23 [...] Phone: Payers Date Payer Category Payer Unknown [id number] 02-28-2024 Self-pay 01-05-2022 Medicaid 01-05-2022 Medicare 01-05-2022 Medicare [id number] 10-05-2021 Medicaid [id number] [id number] 06-07-2021 Medicare UHC MEDICARE UHC DUAL COMPLETE HMO SNP [id number] 06/07/2021-Present [phone] [address] [place] [address] Medicare [id number]. 2.7.3.427208.315 06-07-2021 Medicare UHC MEDICARE [employer] DUAL COMPLETE [id number] 06/07/2021-Present [phone] [address] [place] [address] [id number] 1.2.840.766478.1.13.239. 2.7.3.465275.315 11-05-2019 Medicare UHC [facility] A[facility] MEDICARE HMO [id number] 11/05/2019-Present O [id number] 1.2.840.788087.1.13.159. 2.7.3.389846.315 07-06-2015 Medicare UHC MEDICARE UHC MEDICARE COMPLETE xxxxxxxxx 2015-Present xxxxxxxxx 1.2.840.047363.1.13.239. 2.7.3.085152.315 1950 Unknown [id number] 2.16.840.1.154749.3.579. 2.668 1950 Unknown [id number] 2.16.840.1.886225.3.579. 2.668 1952 Unknown [id number] 2.16.840.1.160098.3.579. 2.668 1952 Unknown [id number] 2.16.840.1.065344.3.579. 2.668 1952 Unknown [id number] 2.16.840.1.661393.3.579. 2.8 1952 Unknown [id number] 2.16.840.1.102785.3.579. 2.668 1950 Unknown [id number] 2.16.840.1.785389.3.579. 2.668 Private Health Insurance Unknown Unknown [id number] 2.16.840.1.642051.3.579. 2.462 Unknown [id number] 2.16.840.1.071585.3.579. 2.462 Unknown [id number] 2.16.840.1.296362.3.579. 2.462 Unknown [id number] 2.16840.1.187007.3.579. 2.462 Unknown [id number] 2.16.840.1.831197.3.579. 2.462 Unknown [id number] 2.16.840.1.438124.3.579. 2.462 Unknown [id number] 2.16.840.1.761356.3.579. 2.462 Unknown [id number] 2.16.840.1.369006.3.579. 2.462 Unknown [id number] 2.16.840.1.493743.3.579. 2.462 Unknown [id number] 2.16.840.1.679154.3.579. 2.462 Unknown [id number] 2.16.840.1.484774.3.579. 2.462 Unknown [id number] 2.16.840.1.985557.3.579. 2.462 Unknown [id number] 2.16.840.1.209615.3.579. 2.462 Unknown [id number] 2.16.840.1.230027.3.579. 2.462 Unknown [id number] 2.16.840.1.985048.3.579. 2.462 Unknown [id number] 2.16840.1.023487.3.579. 2.462 Unknown [id number] 2.16.840.1.931992.3.579. 2.462 Unknown [id number] 2.840.1.250077.3.579. 2.462 Unknown [id number] 2.840.1.529054.3.579. 2.462 Unknown [id number] 2.840.1.198068.3.579. 2.462 Unknown [id number] 2.840.1.405323.3.579. 2.462 Unknown [id number] 2.840.1.430123.3.579. 2.462 Unknown [id number] 2.840.1.251506.3.579. 2.462 Unknown [id number] 2.840.1.284802.3.579. 2.462 Unknown [id number] 2.840.1.730163.3.579. 2.462 Unknown [id number] 2.840.1.532988.3.579. 2.462 Unknown [id number] 2.840.1.595987.3.579. 2.462 Unknown [id number] 2.840.1.128405.3.579. 2.462 Unknown [id number] 2.840.1.663657.3.579. 2.462 Unknown [id number] 2.840.1.618422.3.579. 2.462 Unknown [id number] 2.840.1.797054.3.579. 2.462 Unknown [id number] 2.840.1.851686.3.579. 2.462 Unknown [id number] 2.16.840.1.845589.3.579. 2.462 Unknown [id number] 2.16.840.1.547070.3.579. 2.462 Unknown [id number] 2.16.840.1.517220.3.579. 2.462 Unknown [id number] 2.16.840.1.942941.3.579. 2.462 Unknown [id number] 2.16.840.1.233575.3.579. 2.462 Unknown [id number] 2.16.840.1.455550.3.579. 2.462 Unknown [id number] 2.840.1.018949.3.579. 2.462 Unknown [id number] 2.840.1.227483.3.579. 2.462 Unknown [id number] 2.840.1.242611.3.579. 2.462 Unknown [id number] 2.840.1.271111.3.579. 2.462 Unknown [id number] 2..840.1.336765.3.579. 2.462 Unknown [id number] 2..840.1.755243.3.579. 2.462 Unknown [id number] 2.16.840.1.568077.3.579. 2.462 Unknown [id number] 2.840.1.154925.3.579. 2.462 Unknown [id number] 2.16.840.1.850656.3.579. 2.462 Unknown [id number] 2.16.840.1.454873.3.579. 2.462 Unknown [id number] 2.16.840.1.990546.3.579. 2.462 Unknown [id number] 2.16.840.1.998559.3.579. 2.462 Unknown [id number] 2..840.1.058912.3.579. 2.462 Unknown [id number] 2.16.840.1.688348.3.579. 2.462 Unknown 42439670 2.16.840.1.136263.3.579. 2.462 Unknown [id number] 2.16.840.1.034134.3.579. 2.462 Unknown [id number] 2.16.840.1.633566.3.579. 2.462 Unknown [id number] 2.16.840.1.155800.3.579. 2.462 Unknown [id number] 2.16.840.1.357596.3.579. 2.462 Unknown [id number] 2.16.840.1.518792.3.579. 2.462 Unknown 56990057 2.16.840.1.913182.3.579. 2.462 Unknown 44742845 2.16840.1.347315.3.579. 2.462 Unknown 30143559 2.16.840.1.608302.3.579. 2.462 Unknown 50784592 2.16840.1.290444.3.579. 2.462 Unknown 14598922 2.16840.1.432790.3.579. 2.462 Unknown 63129593 2.16.840.1.691709.3.579. 2.462 Unknown 99172978 2.16.840.1.312119.3.579. 2.462 Unknown 47143642 2.16.840.1.419766.3.579. 2.462 Unknown 08180800 2.16.840.1.702362.3.579. 2.462 Unknown 78186691 2.16.840.1.570061.3.579. 2.462 Unknown 22133045 2.16.840.1.953922.3.579. 2.462 Unknown 85432788 2.16.840.1.627855.3.579. 2.462 Unknown 13270003 2.16.840.1.167659.3.579. 2.462 Unknown 10271412 2.16.840.1.187141.3.579. 2.462 Unknown 49945501 2.16.840.1.683615.3.579. 2.462 Unknown 60891789 2.16.840.1.387575.3.579. 2.462 Unknown 02663488 2.16.840.1.232030.3.579. 2.462 Unknown 33452312 2.16.840.1.110552.3.579. 2.462 Unknown 40654653 2.16.840.1.276691.3.579. 2.462 Unknown 27675740 2.16.840.1.227694.3.579. 2.462 Unknown 92737721 2.16.840.1.403826.3.579. 2.462 Unknown 55378343 2.16.840.1.726279.3.579. 2.462 Unknown 70643528 2.16.840.1.467497.3.579. 2.462 Unknown 99179642 2.16.840.1.913684.3.579. 2.462 Unknown 42164294 2.16.840.1.047983.3.579. 2.462 Unknown 71576809 2.16.840.1.411751.3.579. 2.462 Unknown 42519008 2.16.840.1.609645.3.579. 2.462 Unknown 41816768 2.16.840.1.800337.3.579. 2.462 Unknown 56263242 2.16.840.1.943627.3.579. 2.462 Unknown 80751695 2.16.840.1.209836.3.579. 2.462 Unknown 92278515 2.16.840.1.462954.3.579. 2.462 Unknown 24449019 2.16.840.1.833706.3.579. 2.462 Unknown 96277517 2.16.840.1.127558.3.579. 2.462 Unknown 03039921 2.16.840.1.450375.3.579. 2.462 Unknown 03114596 2.840.1.008468.3.579. 2.462 Unknown 64138374 2.840.1.180923.3.579. 2.462 Unknown 56268532 2.840.1.747627.3.579. 2.462 Unknown 95271092 2.840.1.487057.3.579. 2.462 Unknown 56932607 2.840.1.694606.3.579. 2.462 Unknown 87843403 2.840.1.674495.3.579. 2.462 Unknown 61259807 2.840.1.476482.3.579. 2.462 Unknown 55501377 2.840.1.651386.3.579. 2.462 Unknown 70284995 2.840.1.731960.3.579. 2.462 Unknown 03862481 2.840.1.617277.3.579. 2.462 Unknown 24470091 2.840.1.212224.3.579. 2.462 Unknown 18059825 2.840.1.091752.3.579. 2.462 Unknown 26025643 2.840.1.985383.3.579. 2.462 Unknown 97936443 2.840.1.592627.3.579. 2.462 Unknown 64909130 2.840.1.144222.3.579. 2.462 Unknown 15391013 2.16.840.1.465021.3.579. 2.462 Unknown 97827590 2.16.840.1.952546.3.579. 2.462 Unknown [id number] 2.16.840.1.205503.3.579. 2.462 Unknown [id number] 2.16.840.1.562536.3.579. 2.462 Unknown [id number] 2.16.840.1.837463.3.579. 2.462 Unknown [id number] 2.16.840.1.202012.3.579. 2.462 Unknown [id number] 2.16.840.1.588879.3.579. 2.462 Unknown [id number] 2.16.840.1.729199.3.579. 2.462 Social History Date Type Detail Facility Start: 05-23-2018 End: 05-19-2019 Tobacco smoking status UTIS Former smoker [employer] Work Phone: History of tobacco use Cigar Smoker [facility] Work Phone: Start: 05-19-2019 End: 08-13-2023 Cigarettes smoked current (pack per day) - Reported [employer] Work Phone: Start: 05-19-2019 End: 08-13-2023 Alcohol intake Current non-drinker of alcohol (finding) [facility] Work Phone: Start: 12-03-2018 History SDOH Physica l Activity DPW 7 [facility] Work Phone: Start: 12-03-2018 History SDOH Physica l Activity MPS 9 [facility] Work Phone: Start: 12-03-2018 End: 10-31-2021 History SDOH Stress 1 [employer] Work Phone: Start: 12-03-2018 History SDOH Financial 5 [facility] Work Phone: Start: 12-03-2018 History SDOH Transpo rt Med 2 [employer] Work Phone: Start: 1950 Sex Assigned At Not on file [facility] Work Phone: Start: 08-13-2012 End: 11-13-2019 Tobacco smoking status NHIS Never smoker [facility] Start: 05-23-2018 End: 11-13-2019 Tobacco use and exposure Never used [facility] Start: 11-13-2019 History SDOH Alcohol Std Drinks 98 [facility] Start: 10-11-2021 End: 02-15-2022 Exposure to SARS-CoV-2 (event) Not sure [facility] Start: 1950 Sex Assigned At Male [facility] History of tobacco use Current smoker [facility] Work Phone: History of tobacco use Cigarette Smoker S [facility] Work Phone: Start: 10-31-2021 End: 08-13-2023 Tobacco use panel [facility] Tobacco smoking stat us UTIS Unknown if ever smoked [facility] Work Phone: Start: 07-11-2024 End: 08-21-2024 Sex Male (finding) [facility] NEGATED: Highlighted row - - [facility] Work Phone: Medical Equipment Procedure Code Equipment Code Equipment Origin al Text Equipment Identifier Dates Kit Bactiseal Woodard maria guadalupe Silicone Barium Catheter Shunt Sterile - [id number] Start: 06-08-2021 Catheter Bactise al 14cm External Drainage Csf Sterile Latex Free - [id number] Start: 08-05-2021 Valve Certas Shannon nt Inline - [id number] Start: 06-08-2021 Valve Certas Shannon nt Inline - [id number] Start: 08-05-2021 Valve Certas Shannon nt Inline - [id number] Start: 08-09-2021 Goals Date Patient Goal [...] status health issues are not documented [facility] Work Phone: Mental Status Date Assessment Result Facility NEGATED: Highlighted row Cognitive function [Interpretation] Cognitive status health issues are not documented [facility] Work Phone: Clinical Notes [...] Hydrocephalus, adult (CMS/HCC) (HCC) Kidney stone Neuropathy CIGAR MAKING SUPERVISOR (ventriculoperitoneal) shunt status Past Surgical History: Procedure [...] 09/13/23 12:05 PM documented in this encounter [facility] 08-31-2023 Note S: Shanthi from [facility] spoke with [facility] nurse regarding voiding trial procedure. B: [...] Protocols used: Information Only Call - No [facility] Telephone encounter Note S: Shanthi from [facility] spoke with [facility] nurse regarding voiding trial procedure. B: [...] Protocols used: Information Only Call - No [id number]-[id number]-HJ [facility] 08-31-2023 Miscellaneous Notes S: Shanthi from [facility] spoke with [facility] nurse regarding voiding trial procedure. B: [...] Protocols used: Information Only Call - No Dpabgw-GZYYX-QU documented in this encounter [facility] 08-29-2023 Telephone encounter Note Lm on daughters vm to advise them to call the number for the valet manager to get clarification, and to call back with further questions [facility] 08-29-2023 Miscellaneous Notes Lm on daughters vm to advise them to call the number for the valet manager to get clarification, and to call back with further questions Yes, they will need to call the number given to them. Please advise Name of caller: Shanthi Contact phone number: [phone] Relationship to Patient: patient Provider: MD Quinn Practice: [facility] Chief Complaint/Reason for Call: Shanthi called in to see if Pt would need to come by cot for his CT appt due to Pt being [place]. [facility] did reach out to office and was advised to reach out to Central Scheduling. TEA did reach out to and was advised to let Shanthi know that she would need to reach out to call Maury Cedeño Maintenance Journeyman at [facility] [phone] to get clarifications. CAC did reach back out to [facility] and advised and provider Maury's #. Please advise Best time of day caller can be reached: Any Patient advised that office/PCP has 24-48 business hours to return their call: N/A documented in this encounter [facility] 08-27-2023 Telephone encounter Note Yes, they will need to call the number given to them. [facility] 08-27-2023 Telephone encounter Note Please advise [facility] 08-21-2023 Telephone encounter Note Name of caller: Shanthi Contact phone number: [phone] Relationship to Patient: patient Provider: MD Quinn Practice: [facility] Chief Complaint/Reason [...] to reach out to call Maury Cedeño Maintenance Journeyman at [facility] [phone] to get clarifications. TEA did reach back out to [facility] and advised and provider Maury's #. Please advise Best time of day caller can be reached: Any Patient advised that office/PCP has 24-48 business hours to return their call: N/A [facility] 08-13-2023 History of Present illness Narrative Images [...] Hydrocephalus, adult (CMS/HCC) (HCC) Kidney stone Neuropathy CIGAR MAKING SUPERVISOR (ventriculoperitoneal) shunt status Past Surgical History: Past [...] 08/13/23 10:45 AM documented in this encounter [facility] 06-25-2023 [facility]23 [place] has to be made further out, pt being transported by cot. Changed appt to 08/13/23 per [facility] only avail time for transport, first avail with DR Buck at 10:00 AM. [facility] 06-25-2023 [facility]23 [place] has to be made further out, pt being transported by cot. Changed appt to 08/13/23 per [facility] only avail time for transport, first avail with DR Buck at 10:00 AM. documented in this encounter [facility] 12-22-2021 Hospital Discharge instructions SANIA Lou - 12/22/2021 2:32 AM EDT Please take medication as prescribed Please follow up with your Physicians as instructed in this discharge paperwork Thank you for choosing [facility] I appreciate your patience Please return to [...] abnormality and previous indwelling tubing history of CIGAR MAKING SUPERVISOR shunt ? #?Bilateral lower extremity wounds-wound care [...] neurologist. Patient will be transferred to the [facility] and his Coumadin was continued, dosing instructions were given. Wound care was given for his lower extremity wounds. Consults: neurology, vascular surgery, gastroenterology Discharge Instructions: Diet: No diet orders on file Activity: as tolerated Disposition: Patient discharged in stable condition to [facility] . Greater than 30 minutes spent discharging [...] Your Medications These medications were sent to [facility] [address] [facility] - P [phone] - F [phone] [facility] [id number] ? levETIRAcetam 750 MG tablet ? warfarin 6 MG tablet Recommended Follow-up: No follow-up provider specified. Complexity of Follow up: [] Moderate Complexity: follow up within 7-14 calendar days (81093) [x] Severe Complexity: follow up within 7 calendar days (83972) Follow up Testing, Pending results or Referrals [...] Increased fatigue or (more content not included)... [facility] 10-29-2021 Hospital Discharge instructions Fabi Subramanian RN - 10/29/2021 12:03 PM EDT Continuity of Care Form Patient Name: Andrew Sifuentes : 1950 Admit date: 10/21/2021 Discharge date: 10/29/2021 Code Status Order: Full Code Advance Directives: Admitting Physician: May Cash MD PCP: MONIKA STALEY MD Discharging Nurse: Fabi [facility] Unit/Room#: 146/1461 Discharging Unit Emergency Contact: Extended Emergency Contact Information Primary Emergency Contact: NelsonTriny Address: [address] [place] [address] Relation: Brother/Sister Secondary Emergency Contact: Melissa Sifuentes Mobile Relation: Child Preferred language: Cymraes Past Surgical History: Past Surgical History: Procedure Laterality Date BRAIN SURGERY CHOLECYSTECTOMY COLONOSCOPY HERNIA REPAIR Immunization History: Immunization History Administered Date(s) Administered Influenza Virus Vaccine 02/08/2015 Influenza, High Dose (Fluzone 65 yrs and older) 01/25/2018, 03/04/2019 Influenza, Quadv, IM, (6 mo and older Fluzone, Flulaval, Fluarix and 3 yrs and older Afluria) 02/24/2016, 02/14/2017 Pneumococcal Conjugate 13-valent (Qsgyicx17) 09/22/2016 Pneumococcal Conjugate Vaccine 02/04/2013 Pneumococcal Polysaccharide (Lkcfmxobq22) 12/03/2018 Tdap (Boostrix, Adacel) 09/22/2016 Active Problems: Patient Active Problem List Diagnosis Code Flank pain, acute R10.9 Night muscle spasms M62.838 Chronic fatigue R53.82 Hydrocephalus ([facility]) G91.9 Neuropathy G62.9 Erectile dysfunction N52.9 Fluid retention in tissues R60.9 Hyperlipidemia E78.5 Morbidly obese (FORMER[facility]) E66.01 Leg wound, left S81.802A DVT, lower extremity, recurrent, unspecified laterality ([facility]) I82.409 Moderate malnutrition ([facility]) E44.0 History of seizures Z87.898 Isolation/Infection: Isolation [...] Dependent Dressing Dependent Toileting Dependent Feeding Dependent Caster Operator Dependent Med Delivery whole in [facility] Wound Care Documentation and Therapy: Wound [...] Q4H prn SOB Oxygen Therapy: {Therapy; copd oxygen:63225} Ventilator: { CC Vent List:[id number]} Rehab Therapies: {THERAPEUTIC INTERVENTION:1998869095} Weight Bearing Status/Restrictions: Weight Bearing - Patient was bedbound in hospital Other Medical Equipment (for information only, NOT a DME order): wheelchair, hospital bed, and Boaz Other Treatments: Patient's personal belongings (please select all that are sent with patient): {[facility] DME Belongings:[id number]} RN SIGNATURE: CASE MANAGEMENT/SOCIAL WORK SECTION Inpatient Status Date: Readmission Risk Assessment Score: Readmission Risk Risk of Unplanned Readmission: 11 Discharging to Facility/ Agency Name: Address: Phone: Fax: Dialysis Facility (if applicable) Name: Address: Dialysis Schedule: Phone: Fax: Filament Shaper/Stitch Separator signature: {Esignature:[id number]} PHYSICIAN SECTION Prognosis: Fair Condition at Discharge: Stable Rehab Potential (if transferring to Rehab): Fair Recommended Labs or Other Treatments After Discharge: Coumadin based on INR target range 2-3, Coumadin 6 mg on 10/30 and 10/31, recheck INR 11/01 and notify physician, ideally should be on 6 mg alt with 7 mg daily, PT/OT, follow-up with neurologist in 1 month, continue [facility] Physician Certification: I certify the above information and transfer of Andrew Sifuentes is necessary for the continuing treatment of the diagnosis listed and that he requires [facility] Facility for greater than 30 days. Update Admission H&P: No change in H&P PHYSICIAN SIGNATURE: documented in this encounter [facility] Work Phone: 10-29-2021 History of Present illness Narrative [facility] ([facility] Inpatient Warfarin Consult HPI: Andrew Sifuentes is a 71 y.o. 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 Past Medical History: Diagnosis Date ED (erectile dysfunction) Hemorrhoids Hydrocephalus, adult (HCC) Kidney stone Neuropathy CIGAR MAKING SUPERVISOR (ventriculoperitoneal) shunt status Patient is newly [facility] to the [facility] for warfarin management. Pt was [...] HOLD 10/27 2.1 7.5mg 10/26 1.9 7.5mg 6/21 1.5 7.5mg 10/24 1.2 7.5mg 10/23 1.1 [...] PharmD IRVIN Consult Service is available daily [phone]. Please search for covering pharmacist name via Flytenow or Groups --> Pharmacy --> Anti-Coagulation Consult Pharmacist (on 3rd page). If no response via Renthackrve, please page [phone]. Patient seen and chart reviewed. Afebrile. Adequate oxygenation on room air. Baseline mentation. Exam stable X 5 systems. Hgb 11.0 WBC 10.0 K Platelets 344 K Creatinine 0.71 GFR > 90 cc/min. NSE 20.8 with hemolysis. PT 30.8 INR 3.1 Conversion to Warfarin has been completed. APS w/u pending. Discussed with patient's staff internist office based only. Will continue to monitor. Total visit time > 35 minutes. Neurology Attending Progress Note SUBJECTIVE: No issues overnight. Care discussed with nursing staff/patient's medical team MRI brain reported nothing acute. Assessment and Plan: 71 yr M with H obstructive hydrocephalus s/p CIGAR MAKING SUPERVISOR shunt in 1987, needing multiple revisions and [...] normal limits and both old and new CIGAR MAKING SUPERVISOR shunt tubing noted. At present patient is awake, follows commands, was able to tell his name, and that he was in hospital but not oriented to time. Per documentation patient had NCSE in May 2021, was on Vimpat, but it was discontinued as there was no evidence of recurrent seizures in july 2021 by Neurology at [facility], per daughter patient was on Dilantin [...] normal limits and both old and new CIGAR MAKING SUPERVISOR shunt tubing noted -EEG mild to moderate slow, no seizures reported -Labs reviewed -Hydrocephalus management per Neurosurgery. At present patient does not have hydrocephalus on CT head done this admission. No Neurosurgery services available as inpatient in [facility]. Patient can follow up with Neurosurgery as outpatient and if ends up needing inpatient neurosurgery requirement then may need to be transferred to [facility]. -No clear clinical signs of ventriculitis. Defer evaluation to primary medical team/ID as deemed necessary. -Discussed with daughter in detail on . She was concerned that patient has had h/o seizures, and he has been taken off seizure medication, per note documentation patient had NCSE in May 2021 when he was admitted to [facility]. Per daughter she would want patient [...] no in house Neurology coverage at [facility] over the weekend, primary hospitalist team to contact continuous improvement analyst Neurology at [facility] for any weekend neurological issues related to the patient and if need to discuss any neurological test results/findings. Other deal in house Neurology coverage will be available from Sunday at [facility] and please call continuous improvement analyst Neurology back on Sunday if need further assistance. This note has been generated using CitiSent dictation software. It may contain incorrect words, punctuation's and spellings that were not noted in the review of the note prior to signing. This note has been generated using CitiSent dictation software. It may contain incorrect words, [...] eGFR >90.0 >60 mL/min EGFR IF NonAfrican Australian >90.0 >60 mL/min Calcium 9.1 8.4 - [...] 26 AST 24 BILITOT 0.4 LABALBU 3.7 @BRIEFLAB([facility]) ABGs: )No results for input(s): PH, PO2, [...] Radiology ACCESSION EXAM DATE/TIME PROCEDURE ORDERING PROVIDER [id number] 10/21/2021 15:30 EDT CR Calcaneus 2+ Views [id number] -SHRUTHI MALIK Left CPT code 47623 Reason For Exam (CR Calcaneus 2+ Views [...] Result Date: 10/26/2021 [id number] Computed Tomography ACCESSION EXAM DATE/TIME PROCEDURE ORDERING PROVIDER [id number] 10/26/2021 11:[address] Head or Brain w/o JUNIE PINEDA, SARINA Contrast CPT code 45353 Reason For Exam (CT Head or Brain w/o Contrast) hydrocephalus. thank you Report CLINICAL INFORMATION: Hydrocephalus. Shunt. 3 mm axial cuts through the head are obtained without IV contrast. The examination is compared to a previous study dated 06/29/2014. FINDINGS: Old CIGAR MAKING SUPERVISOR shunt tubing is noted bilaterally. The new [...] are clear. IMPRESSION: 1. Old and new CIGAR MAKING SUPERVISOR shunt tubing. 2. No hydrocephalus. 3. Atrophy [...] Imaging ACCESSION EXAM DATE/TIME PROCEDURE ORDERING PROVIDER [id number] 10/23/2021 11:08 EDT MRI Abdomen w/o Contrast IWNG SRIVASTAVA CPT code 13293 Reason For Exam (MRI Abdomen w/o Contrast) [...] Medicine ACCESSION EXAM DATE/TIME PROCEDURE ORDERING PROVIDER [id number] 10/21/2021 07:55 EDT NM Pulmonary Perfusion [id number] MAY BOGGS w/ Vent Aerosol CPT code 99601 A9567 Reason For Exam (NM Pulmonary Perfusion [...] Indices Extremity Bilateral Result Date: 10/22/2021 [facility] --- Ankle Brachial Index Report Patient DO GurpreetB: 1950 Study 10/21/2021 Name: Andrew Gonzalez (71yrs) Date: Age: 71 Account: [id number] Gender: M Loc: 444W BP: Ordering Physician: Shruthi Malik Core Oven Tender: Rody Cross RDMS RVT Interpreting Physician: Carina Call --- Location: [facility] --- Indications: Foot wounds. Originally ordered as a full PVR. Ordering TELEMETRY TECH had to modify the order to ABIs [...] supine position. Images were obtained using a [employer] vascular ultrasound machine. --- Arterial pressure indices: [...] BILATERAL VENOUS DUPLEX Result Date: 10/21/2021 [facility] --- Lower Extremity Venous Duplex Report Patient Gurpreet, : 1950 Study 10/21/2021 Name: Andrew Gonzalez (71yrs) Date: Age: 71 Account: [id number] Gender: M Loc: 444 BP: Ordering Physician: May Cash Core Oven Tender: Rody Cross RDMS, T Interpreting Physician: Carina Call --- [facility] [...] supine position. Images were obtained using a [employer] vascular ultrasound machine. --- Venous flow and [...] Radiology ACCESSION EXAM DATE/TIME PROCEDURE ORDERING PROVIDER [id number] 10/21/2021 08:16 EDT CR Chest 1 View Frontal [id number] MAY BOGGS CPT code 90286 Reason For Exam (CR Chest 1 View [...] Tomography ACCESSION EXAM DATE/TIME PROCEDURE ORDERING PROVIDER [id number] 10/22/2021 13:[address] Abdomen/Pelvis (No SRIVASTAVA, WING PO, No IV) CPT code 97567 Reason For Exam (CT Abdomen/Pelvis (No PO, [...] Imaging ACCESSION EXAM DATE/TIME PROCEDURE ORDERING PROVIDER [id number] 10/27/2021 13:14 EDT MRI Brain w/o Contrast UNASSIGNED, UNASSIGNED CPT code 40571 Reason For Exam (MRI Brain w/o Contrast) stroke Patient has CIGAR MAKING SUPERVISOR shunt in place, please follow Radiology protocol [...] included. Hospitalist Progress Note 10/28/2021 11:37 AM [phone]: Please page mi @ [phone] for patient care issues. [phone]: Please page autos disassembler for any issues@ night Subjective: Admit Date: [...] abnormality and previous indwelling tubing history of CIGAR MAKING SUPERVISOR shunt # Bilateral lower extremity wounds-wound care [...] Services This report was created using the Hightail Speaking voice-activated system. Despite prompt dictation and careful editorial review, there may be subtle contextual errors in this report, due to misrecognition of the spoken word. Speech Language Pathology Facility/Department: [facility] Dysphagia Treatment Note NAME: [...] PO intake, strategies as established. Time Out: 0930 Session time: 25 minutes A KN95 mask and gloves were worn throughout this session. [facility] ([facility] Inpatient Warfarin Consult HPI: Andrew Sifuentes is a 71 y.o. 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 Past Medical History: Diagnosis Date ED (erectile dysfunction) Hemorrhoids Hydrocephalus, adult (HCC) Kidney stone Neuropathy CIGAR MAKING SUPERVISOR (ventriculoperitoneal) shunt status Patient is newly referred to [facility] for warfarin management. Pt was [...] PharmD IRVIN Consult Service is available daily [phone]. Please search for covering pharmacist name via Flytenow or Groups --> Pharmacy --> Anti-Coagulation Consult Pharmacist (on 3rd page). If no response via Flytenow, please page [phone]. Follow up b/l foot wounds. No new [...] yr M with PMH obstructive hydrocephalus s/p CIGAR MAKING SUPERVISOR shunt in 1987, needing multiple revisions and [...] normal limits and both old and new CIGAR MAKING SUPERVISOR shunt tubing noted. At present patient is awake, follows commands, was able to tell his name, and that he was in hospital but not oriented to time. Per documentation patient had NCSE in May 2021, was on Vimpat, but it was discontinued as there was no evidence of recurrent seizures in july 2021 by Neurology at [facility], per daughter patient was on Dilantin [...] normal limits and both old and new CIGAR MAKING SUPERVISOR shunt tubing noted -EEG mild to moderate slow, no seizures reported -Labs reviewed -Hydrocephalus management per Neurosurgery. At present patient does not have hydrocephalus on CT head done this admission. No Neurosurgery services available as inpatient in [facility]. Patient can follow up with Neurosurgery as outpatient and if ends up needing inpatient neurosurgery requirement then may need to be transferred to [facility]. -No clear clinical signs of ventriculitis. Defer evaluation to primary medical team/ID as deemed necessary. -Discussed with daughter in detail on . She was concerned that patient has had h/o seizures, and he has been taken off seizure medication, per note documentation patient had NCSE in May 2021 when he was admitted to [facility]. Per daughter she would want patient [...] interim. This note has been generated using CitiSent dictation software. It may contain incorrect words, punctuation's and spellings that were not noted in the review of the note prior to signing. This note has been generated using CitiSent dictation software. It may contain incorrect words, [...] LABALBU, AMYLASE, LIPASE in the last 72 hours.@BRIEFLAB([facility]) ABGs: )No results for input(s): PH, [...] Radiology ACCESSION EXAM DATE/TIME PROCEDURE ORDERING PROVIDER [id number] 10/21/2021 15:30 EDT CR Calcaneus 2+ Views [id number] -SHRUTHI MALIK Left CPT code 56006 Reason For Exam (CR Calcaneus 2+ Views [...] Tomography ACCESSION EXAM DATE/TIME PROCEDURE ORDERING PROVIDER [id number] 10/26/2021 11:[address] Head or Brain w/o JUNIE PINEDA, SARINA Contrast CPT code 62297 Reason For Exam (CT Head or Brain w/o Contrast) hydrocephalus. thank you Report CLINICAL INFORMATION: Hydrocephalus. Shunt. 3 mm axial cuts through the head are obtained without IV contrast. The examination is compared to a previous study dated 06/29/2014. FINDINGS: Old CIGAR MAKING SUPERVISOR shunt tubing is noted bilaterally. The new [...] are clear. IMPRESSION: 1. Old and new CIGAR MAKING SUPERVISOR shunt tubing. 2. No hydrocephalus. 3. Atrophy [...] Imaging ACCESSION EXAM DATE/TIME PROCEDURE ORDERING PROVIDER [id number] 10/23/2021 11:08 EDT MRI Abdomen w/o Contrast WING SRIVASTAVA CPT code 36829 Reason For Exam (MRI Abdomen w/o Contrast) [...] Medicine ACCESSION EXAM DATE/TIME PROCEDURE ORDERING PROVIDER [id number] 10/21/2021 07:55 EDT NM Pulmonary Perfusion [id number] MAY BOGGS w/ Vent Aerosol CPT code 40743 A9567 Reason For Exam (NM Pulmonary Perfusion [...] Indices Extremity Bilateral Result Date: 10/22/2021 [facility] --- Ankle Brachial Index Report Patient DO GurpreetB: 1950 Study 10/21/2021 Name: Andrew Gonzalez (71yrs) Date: Age: 71 Account: [id number] Gender: M Loc: 444W BP: Ordering Physician: Shruthi Malik Core Oven Tender: Rody Cross RDMS, RVT Interpreting Physician: Carina Call --- Location: [facility] --- Indications: Foot wounds. Originally ordered as a full PVR. Ordering TELEMETRY TECH had to modify the order to ABIs [...] supine position. Images were obtained using a [employer] vascular ultrasound machine. --- Arterial pressure indices: [...] BILATERAL VENOUS DUPLEX Result Date: 10/21/2021 [facility] --- Lower Extremity Venous Duplex Report Patient DO GurpreetB: 1950 Study 10/21/2021 Name: Andrew Gonzalez (71yr) Date: Age: 71 Account: [id number] Gender: M Loc: 444 BP: Ordering Physician: May Cash Core Oven Tender: Rody Cross RDMS, RVT Interpreting Physician: Carina [...] supine position. Images were obtained using a [employer] vascular ultrasound machine. --- Venous flow and [...] Radiology ACCESSION EXAM DATE/TIME PROCEDURE ORDERING PROVIDER [id number] 10/21/2021 08:16 EDT CR Chest 1 View Frontal [id number] MAY BOGGS CPT code 16860 Reason For Exam (CR Chest 1 View [...] Tomography ACCESSION EXAM DATE/TIME PROCEDURE ORDERING PROVIDER [id number] 10/22/2021 13:[address] Abdomen/Pelvis (No SRIVASTAVA, WING PO, No IV) CPT code 03182 Reason For Exam (CT Abdomen/Pelvis (No PO, [...] PM Consults Speech Language Pathology Facility/Department: [facility] Dysphagia Treatment Note NAME: [...] reactivity and state change, indicative of a pfoo-ni-ommgokao diffuse encephalopathy of nonspecific etiology. There are [...] Easy to chew diet/cut up. NEVILLE Jones M.A.CCC/ANIMAL TAXONOMIST Time session ended: 1156 Total session minutes: 23 Images from the original note were not included. Hospitalist Progress Note 10/27/2021 10:40 AM 8989-0181: Please page me @ [phone] for patient care issues. [phone]: Please page autos disassembler for any issues@ night Subjective: Admit Date: [...] Services This report was created using the Going My Way voice-activated system. Despite prompt dictation and careful editorial review, there may be subtle contextual errors in this report, due to misrecognition of the spoken word. [facility] ([facility] Inpatient Warfarin Consult HPI: Andrew Sifuentes is a 71 y.o. 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 Past Medical History: Diagnosis Date ED (erectile dysfunction) Hemorrhoids Hydrocephalus, adult (HCC) Kidney stone Neuropathy CIGAR MAKING SUPERVISOR (ventriculoperitoneal) shunt status Patient is newly referred to the [facility] for warfarin management. Pt was [...] SNF. 4. Will provide warfarin education including [facility] warfarin booklet, if appropriate. Thank you for this consult Brionna Le, PharmD candidate Josie Gupta [facility], PharmD [facility] Consult Service is available daily [phone]. Please search for covering pharmacist name via Flytenow or Groups --> Pharmacy --> Anti-Coagulation Consult Pharmacist (on 3rd page). If no response via PerfectServe, please page [phone]. I cleaned under patient's finger nails with [...] status with Warfarin. Discussed with patient's staff internist office based only. Will continue to monitor. Total visit time [...] if concern Hydrocephalus Chronic WOODARD's - Revised CIGAR MAKING SUPERVISOR shunt - daughter requested that pt have CT / MRI of brain and neurology be consulted, this was done. - "Hydrocephalus management per Neurosurgery. At present patient does not have hydrocephalus on CT head done this morning. No Neurosurgery services available as inpatient in [facility]. Patient can follow up with Neurosurgery as outpatient and if ends up needing inpatient neurosurgery requirement then may need to be transferred to [facility]. " Seizure history, unspecified - [...] get report from nursing. Continue wound care. [facility] ([facility] Inpatient Warfarin Consult HPI: Andrew Sifuentes is a 71 y.o. 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 Past Medical History: Diagnosis Date ED (erectile dysfunction) Hemorrhoids Hydrocephalus, adult (HCC) Kidney stone Neuropathy CIGAR MAKING SUPERVISOR (ventriculoperitoneal) shunt status Patient is newly referred to the [facility] for warfarin management. Pt was [...] PharmD IRVIN Consult Service is available daily [phone]. Please search for covering pharmacist name via Flytenow or Groups --> Pharmacy --> Anti-Coagulation Consult Pharmacist (on 3rd page). If no response via Flytenow, please page [phone]. Moon daughter stated that any of patient's family can call and obtain an update on patient's status. Speech Language Pathology Facility/Department: [facility] CLINICAL BEDSIDE SWALLOW EVALUATION [...] a small bore straw. Additionally discussed with ANIMAL TAXONOMIST, agreeable to assess tomorrow. Recent Chest Xray/CT [...] and liquids between bites. Treatment Plan Requires ANIMAL TAXONOMIST Intervention: Yes Duration of Treatment: 2 weeks [...] Education Response: Verbalizes understanding;Needs reinforcement Therapy Time ANIMAL TAXONOMIST Individual Minutes Time In: 08 Time Out: 0853 Minutes: 26 NEVILLE Jones 10/26/2021 9:20 AM Comprehensive Nutrition Assessment Type and Reason for Visit: Initial (DT referral for wounds) Nutrition Recommendations/Plan: 1. Recommend to continue: Easy to Chew diet with Thin Liquids as currently ordered and safe for patient to participate in. Discussed with: RN, TELEMETRY TECH, and ANIMAL TAXONOMIST. ANIMAL TAXONOMIST to assess tomorrow, best diet and liquid [...] & deltoids),Scapula (trapezius) Fluid Accumulation: Mild Extremities Expeller Worker Strength: Not Performed Nutrition Assessment: 71 year [...] a small bore straw. Additionally discussed with ANIMAL TAXONOMIST, agreeable to assess tomorrow. Nutrition Related Findings: [...] Anthropometric Measures: Height: 5' 7.01" (170.2 cm) [place] Body Weight (IBW): 148 lbs (67 kg) [...] On: Kcal/kg Weight Used for Energy Requirements: [place] (67.15 kg) Energy (kcal/day): 9019-5874 (27-32 kcal/kg IBW) --> increased need d/t wounds Weight Used for Protein Requirements: [place] (67.15 kg) Protein (g/day): 67-101 (1.0-1.5 g protein/kg IBW) Method Used for Fluid Requirements: Other (Comment) Fluid (ml/day): 6187-3521 mL daily or per MD Nutrition Diagnosis: [...] Plan of Care discussed with: Patient, RN, TELEMETRY TECH Edwin Goals: Goals: other (specify) Specify Other [...] to determine Puja Almanza RD, LD Contact: *[phone] [address] Flytenow Hematology/Oncology Attending Progress Note SUBJECTIVE: Patient seen [...] IRON, TIBC, FERRITIN No results found for: HIIBNOCX18 No results found for: FOLATE PT 15.6 INR 1.5 CA 19 - 9 is 17 Protein S 138% Protein C 186% ASSESSMENT AND PLAN GI input appreciated. Patient continues with subtherapeutic INR. GI input appreciated. Discussed with patient's staff internist office based only. Will continue monitor. Total visit time > 35 minutes. [facility] ([facility] Inpatient Warfarin Consult HPI: Andrew Sifuentes is a 71 y.o. 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 Past Medical History: Diagnosis Date ED (erectile dysfunction) Hemorrhoids Hydrocephalus, adult (HCC) Kidney stone Neuropathy CIGAR MAKING SUPERVISOR (ventriculoperitoneal) shunt status Patient is newly [facility] for warfarin management. Pt was [...] SNF. 4. Will provide warfarin education including [facility] warfarin booklet, if appropriate. Thank you for this consult Brionna Le, PharmD candidate Josie Gupta RPh, PharmD [facility] Consult Service is available daily [phone]. Please search for covering pharmacist name via Flytenow or Groups --> Pharmacy --> Anti-Coagulation Consult Pharmacist (on 3rd page). If no response via Flytenow, please page [phone]. Progress Note 10/25/2021 9:36 AM Name: Andrew [...] if concern Hydrocephalus Chronic WOODARD's - Revised CIGAR MAKING SUPERVISOR shunt DC planning - 10/25/21: INR subtherapeutic, [...] if concern Hydrocephalus Chronic WOODARD's - Revised CIGAR MAKING SUPERVISOR shunt DC planning - Can be DC'd back to [facility] once MRI done if no acute findings, MRI is done, defer to hem / onc on plan for that, awaiting chest PA with fluoro Patient seen and chart reviewed. Consult dictated. Will ask GI to assess concerning the etiology of liver lesions. Will continue to monitor. [facility] ([facility]) Inpatient Warfarin Consult HPI: Andrew Sifuentes is a 71 y.o. 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 Past Medical History: Diagnosis Date ED (erectile dysfunction) Hemorrhoids Hydrocephalus, adult (HCC) Kidney stone Neuropathy CIGAR MAKING SUPERVISOR (ventriculoperitoneal) shunt status Patient is newly referred to the [facility] clinic for warfarin management. Pt was [...] PharmD IRVIN Consult Service is available daily [phone]. Please search for covering pharmacist name via Flytenow or Groups --> Pharmacy --> Anti-Coagulation Consult Pharmacist (on 3rd page). If no response via Renthackrve, please page [phone]. Follow up foot wounds Patient is more alert this morning. Waffle boots are on Ulcer left heel ulcer right foot Foot drop PE, chart reviewed. Patient relates that he does not walk at home. c ontinue wound care. Images from the original note were not included. Hospitalist Progress Note 10/23/2021 1:47 PM [phone]: Please page me ([phone]) or perfect serve me for patient care issues. [phone]: Please page IMS night Hospitalist for any [...] if concern Hydrocephalus Chronic WOODARD's - Revised CIGAR MAKING SUPERVISOR shunt DC planning - Can be DC'd [...] Hemorrhoids Hydrocephalus, adult (HCC) Kidney stone Neuropathy CIGAR MAKING SUPERVISOR (ventriculoperitoneal) shunt status Medications: sodium chloride warfarin [...] of Hospitalist Medicine Inpatient Medical Services PAGER: [phone] Nutrition rescreen completed. Pt referred to RD for foot ulcers. Occupational Therapy Facility/Department: [facility] Occupational Therapy Initial Assessment Name: Andrew Sifuentes : 1950 Date of Service: 10/23/2021 OT eval and treat orders received. Chart reviewed. Per notes pt from [facility], is Boaz lift at baseline, non-ambulatory, and requires assist for all ADLs. Will d/c OT orders. Elizabeth Gutirerez OT Physical Therapy Facility/Department: [facility] Physical Therapy Initial Assessment Name: Andrew Sifuentes : 1950 Date of Service: 10/23/2021 PT eval and treat orders received. Chart reviewed. Per notes pt from [facility], is Boaz rios at baseline, non-ambulatory. Will d/c PT orders. Lloyd Silva PT [facility] ([facility]) Inpatient Warfarin Consult HPI: Andrew Sifuentes is a 71 y.o. 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 Past Medical History: Diagnosis Date ED (erectile dysfunction) Hemorrhoids Hydrocephalus, adult (HCC) Kidney stone Neuropathy CIGAR MAKING SUPERVISOR (ventriculoperitoneal) shunt status Patient is newly referred to the [facility] clinic for warfarin management. Pt was [...] PharmD IRVIN Consult Service is available daily [phone]. Please search for covering pharmacist name via Flytenow or Groups --> Pharmacy --> Anti-Coagulation Consult Pharmacist (on 3rd page). If no response via PerfectServe, please page [phone]. Department of Podiatry Attending Consult Note Reason for Consult: Wound care Requesting Physician: MD Shailesh CHIEF COMPLAINT: Foot wounds HISTORY OF PRESENT ILLNESS: The patient is a 71 y.o. male with b/l foot wounds. Patient is awake , but not answering questions. Past Medical History: Diagnosis Date ED (erectile dysfunction) Hemorrhoids Hydrocephalus, adult (HCC) Kidney stone Neuropathy CIGAR MAKING SUPERVISOR (ventriculoperitoneal) shunt status Past Surgical History: Procedure [...] OT consulted. Will follow . Thank you. [facility] Respiratory Care Department Progress Note As [...] included. Hospitalist Progress Note 10/22/2021 6:33 AM [phone]: Please page me ([phone]) or perfect serve me for patient care issues. [phone]: Please page IMS night Hospitalist for any [...] consider MRI if concern Hydrocephalus - Revised CIGAR MAKING SUPERVISOR shunt Interval History: No overnight issues. Denies [...] no cyanosis or edema and unable to director financial analysis BLE, this is old Musculoskeletal: Muscle loss [...] Hemorrhoids Hydrocephalus, adult (HCC) Kidney stone Neuropathy CIGAR MAKING SUPERVISOR (ventriculoperitoneal) shunt status Medications: sodium chloride baclofen [...] of Hospitalist Medicine Inpatient Medical Services PAGER: [phone] Images from the original note were not included. Hospitalist Progress Note 10/21/2021 5:31 PM [phone]: Please page me ([phone]) or perfect serve me for patient care issues. [phone]: Please page [facility] night Hospitalist for any issues. Subjective: Admit Date: 10/21/2021 PCP: MONIKA STALEY MD Room#: 679/1463 Admitting Synopsis: 71 y/o male presents from [...] Will need chronic OAC Hydrocephalus - Revised CIGAR MAKING SUPERVISOR shunt Interval History: No overnight issues. Denies [...] Intake/Output Summary (Last 24 hours) at 10/21/2021 1739 Last data filed at 10/21/2021 0928 Gross per 24 hour Intake 360 ml Output Net 360 ml Past Medical History: Diagnosis Date ED (erectile dysfunction) Hemorrhoids Hydrocephalus, adult (HCC) Kidney stone Neuropathy CIGAR MAKING SUPERVISOR (ventriculoperitoneal) shunt status Medications: sodium chloride baclofen [...] of Hospitalist Medicine Inpatient Medical Services PAGER: [phone] Family member Triny, sister to patient, called back to the hospital stating that she was returning a call from a provider. Her phone number is [phone] to speak with whomever was attempting to reach out to her. documented in this encounter [facility] Work Phone: 10-17-2021 Miscellaneous Notes Mr. Sifuentes missed his hospital stay follow-up appointment [facility] today. Called to Reschedule. Could not get through. "Subscriber you have dialed not in service" - was the automated voice mail. Unable to leave . No other phone# available. Ramya Negro Supply Planner [facility] documented in this encounter [facility] 08-19-2021 Note [facility] 08-19-2021 Note [facility] 08-18-2021 Note [facility] 08-18-2021 Note [facility] 08-17-2021 Note [facility] 08-17-2021 Note [facility] 08-16-2021 Note [facility] 08-16-2021 Note HNO ID: [id number] Author: Katt Kelsey DO Service: Hospital Medicine Author Type: Physician Type: Plan of Care Filed: 08/16/2021 12:26 PM Note Text: Spoke with RN that line is a PICC. Katt Kelsey DO 08/16/2021 12:26 PM [facility] 08-16-2021 Note [facility] 08-16-2021 Note [facility] 08-15-2021 Note [facility] 08[facility]15-2021 Note [facility] 08-15-2021 Note [facility] 08-14-2021 Note [facility] 08-14-2021 Note [facility] 08-13-2021 Note [facility] 08-13-2021 Note [facility] 08-13-2021 Note [facility] 08-13-2021 Note HNO ID: [id number] Author: Interface Note Service: ? Author Type: ? Type: Progress Notes Filed: 08/13/2021 3:10 AM Note Text: Epic Scheduled Downtime: 08/13/2021 1:08:47 AM to 08/13/2021 2:53:47 AM [facility] 08-12-2021 Note [facility] 08-12-2021 Note [facility] 08-12-2021 Note [facility] 08-11-2021 Note [facility] 08[facility]11-2021 Note [facility] 08-11-2021 Note [facility] 08[facility]11-2021 Note [facility] 08[facility]11-2021 Note [facility] 08[facility]11-2021 Note [facility] 08-10-2021 Note [facility] 08[facility]10-2021 Note [facility] 08-10-2021 Note [facility] 08-10-2021 Note [facility] 08-09-2021 Note HNO ID: [id number] Author: Shannon Brooks RN Service: ? Author Type: Registered Nurse Type: Nursing Progress Note Filed: 08/09/2021 7:33 PM Note Text: Report called to unit [facility] 08-09-2021 Note [facility] 08-09-2021 Note [facility] 08-09-2021 Note [facility] 08-08-2021 Note [facility] 08[facility]08-2021 Note [facility] 08-08-2021 Note [facility] 08-07-2021 Note [facility] 08-07-2021 Note [facility] 08[facility]07-2021 Note [facility] 08[facility]07-2021 Note [facility] 08[facility]07-2021 Note [facility] 08-06-2021 Note [facility] 08[facility]06-2021 Note [facility] 08[facility]06-2021 Note [facility] 08-05-2021 Note [facility] 08[facility]05-2021 Note [facility] 08[facility]05-2021 Note [facility] 08-04-2021 Note [facility] 08[facility]04-2021 Note [facility] 08-04-2021 Note [facility] 08-03-2021 Note [facility] 08[facility]03-2021 Note [facility] 08[facility]03-2021 Note [facility] 08-02-2021 Note [facility] 08-02-2021 Note [facility] 08-02-2021 Note [facility] 08-01-2021 Note [facility] 08[facility]01-2021 Note [facility] 08-01-2021 Note [facility] 08-01-2021 Note [facility] 07-31-2021 Note [facility] 07-31-2021 Note [facility] 07-30-2021 Note [facility] 07-30-2021 Note [facility] 07-30-2021 Note [facility] 07-29-2021 Note [facility] 07[facility]29-2021 Note [facility] 07[facility]29-2021 Note [facility] 07-28-2021 Note [facility] 07[facility]28-2021 Note [facility] 07[facility]28-2021 Note [facility] 07-27-2021 Note [facility] 07[facility]27-2021 Note [facility] 07[facility]27-2021 Note [facility] 07-26-2021 Note [facility] 07[facility]26-2021 Note [facility] 07-26-2021 Note [facility] 07[facility]26-2021 Note [facility] 07-26-2021 Note [facility] 07-25-2021 Note [facility] 07-25-2021 Note [facility] 07-25-2021 Note [facility] 07[facility]25-2021 Note [facility] 07-24-2021 Note [facility] 07[facility]24-2021 Note [facility] 07[facility]24-2021 Note [facility] 07-23-2021 Note [facility] 07[facility]23-2021 Note [facility] 07-23-2021 Note [facility] 07-23-2021 Note [facility] 07[facility]23-2021 Note [facility] 07-22-2021 Note [facility] 07[facility]22-2021 Note [facility] 07-22-2021 Note [facility] 07-21-2021 Note [facility] 07[facility]21-2021 Note [facility] 07-21-2021 Note [facility] 07-21-2021 History of Past i [...] history of fever, elevated WBC, RP hematoma CIGAR MAKING SUPERVISOR shunt tip grew anaerobic gram positive cocci 06/08/2021 PLAN: CIGAR MAKING SUPERVISOR shunt tip sent to [facility] main, awaiting cx Continue Meropenem per [...] - following CSF studies; 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 for LIME PULLER infection at this time - ID following- Continue antibiotics: Meropenem -CSF leak from EVD site, appreciate NSGY recs> stat repeat CTH on 06/07 d/t concern for CSF leak, cephalematoma, CTH unremarkable -Tolerating TF - SBT WTE - PICC line placed documented as of this encounter (statuses as of 10/17/2021) [facility]03-17-2022 [facility]03-16-2022 [facility]03-16-2022 [facility]03-16-2022 Note [facility]03-16-2022 [facility] 07-19-2021 [facility]03-15-2022 [facility]03-15-2022 [facility]03-14-2022 [facility]03-14-2022 [facility]03-13-2022 [facility]03-13-2022 [facility]03-12-2022 Note [facility]03-12-2022 [facility] 07-15-2021 [facility]03-11-2022 [facility]03-10-2022 [facility]03-10-2022 [facility]03-10-2022 [facility]03-09-2022 [facility]03-09-2022 [facility]03-09-2022 Note [facility]03-09-2022 [facility] 07-12-2021 [facility]03-08-2022 [facility]03-07-2022 [facility]03-07-2022 [facility]03-07-2022 [facility]03-07-2022 [facility]03-06-2022 [facility]03-06-2022 Note [facility]03-05-2022 [facility] 07-09-2021 [facility]03-05-2022 [facility]03-05-2022 [facility]03-05-2022 NoteHNO ID: [id number] Author: Lizette Valderrama RN Service: Nursing Author Type: Registered Nurse Type: Nursing Progress Note Filed: 07/09/2021 1:41 AM Note Text: Report called to [facility]03-04-2022 NoteHNO ID: [id number] Author: Lizette Valderrama RN Service: Nursing Author Type: Registered Nurse Type: Nursing Progress Note Filed: 07/08/2021 8:57 PM Note Text: [address] back to PACU [address] [place], [place] 9393303-04-2022 NoteHNO ID: [id number] Author: Sukhi Chery APRN.CNP Service: ? Author Type: Nurse Practitioner Type: Progress Notes Filed: 07/09/2021 6:46 PM Note Text: Connected Care Unit Progress Note Patient Name: Andrew Sifuentes Patient Facility: [facility] Admit Date 06/28/2021 Level of Care: Skilled [...] Dept Phone 07/21/2021 11:00 AM [facility] [phone] HPI: (Per Dr. Beltran) Andrew Sifuentes is being seen today for long term facility (SNF) admission AND management of weakness, tube feed, infected retroperitoneal infection and seizure. ? This is a 71 year old male who presents from [facility] with primary admitting diagnosis of Seizure, [...] CT brain concerning for hydrocephalus. Tip of CIGAR MAKING SUPERVISOR shunt was found to be in the [...] slow to respond. Ordered to transfer to [facility] ED for evaluation of neurological and [...] changes in co (more content not included)... [facility]03-04-2022 [facility]03-04-2022 [facility]03-02-2022 NoteHNO ID: [id number] Author: Sukhi Chery APRN.CNP Service: ? Author Type: Nurse Practitioner Type: Progress Notes Filed: 07/09/2021 6:20 PM Note Text: Connected Care Unit Progress Note Patient Name: Andrew Sifuentes Patient Facility: [facility] Admit Date 06/28/2021 Level of Care: Skilled [...] Dept Phone 07/21/2021 11:00 AM [facility] [phone] HPI: (Per Dr. Beltran) Andrew Sifuentes is being seen today for long term facility (SNF) admission AND management of weakness, tube feed, infected retroperitoneal infection and seizure. ? This is a 71 year old male who presents from [facility] with primary admitting diagnosis of Seizure, [...] CT brain concerning for hydrocephalus. Tip of CIGAR MAKING SUPERVISOR shunt was found to be in the [...] uncontrolled pain exacerbations. Medications: Medications listed in [facility] during SNF admission may not be current. [...] Pharynx: Oropharynx is clear. (more content not included)...[facility]02-28-2022 NoteHNO ID: [id number] Author: Sukhi Chery APRN.VICTORIANO Service: ? Author Type: Nurse Practitioner Type: Progress Notes Filed: 07/09/2021 6:07 PM Note Text: Connected Care Unit Progress Note Patient Name: Andrew Sifuentes Patient Facility: [facility] Admit Date 06/28/2021 Level of Care: Skilled [...] but nursing notes it was drawn by aquatic director as vancomycin was being infused; reordered trough - PICC Line Intact - No fevers or chills per patient or staff (R53.81) Debility - Certify therapies - Maintain high falls risk precautions - pt/staff verbalize understanding validated via teach back - Monitor safety awareness Appointments for Next 60 Days Date Time Provider Location Dept Phone 07/21/2021 11:00 AM [facility] [phone] HPI: (Per Dr. Beltran) Andrew Sifuentes is being seen today for long term facility (SNF) admission AND management of weakness, tube feed, infected retroperitoneal infection and seizure. ? This is a 71 year old male who presents from [facility] with primary admitting diagnosis of Seizure, [...] CT brain concerning for hydrocephalus. Tip of CIGAR MAKING SUPERVISOR shunt was found to be in the [...] to facility records. OBJECTIVE: Labs/diagnostics: 07/04/2021 Glucose=91 Hb=629 K=3.8 Db=579 CO2=24 BUN=14 Creatinine=0.5 OES=056 Ca=9.0 Protein,Total=6.7 Albumin=3.6 VveFdne=200 AST=15 ALT=21 Bilirubin,Totall=0.5 WBC=10.7 RBC=4.04 Hgb=10.9 Hct=35.3 Cwukbchr=182 VancomycinTr (more content not included)...[facility]02-24-2022 NoteHNO ID: [id number] Author: Sukhi Chery APRN.STEAM TUNNEL FEEDER Service: ? Author Type: Nurse Practitioner Type: Progress Notes Filed: 07/09/2021 5:43 PM Note Text: Connected Care Unit Progress Note Patient Name: Andrew Sifuentes Patient Facility: [facility] Admit Date 06/28/2021 Level of Care: Skilled [...] Dept Phone 07/21/2021 11:00 AM [facility] [phone] HPI: (Per Dr. Beltran) Andrew Sifuentes is being seen today for long term facility (SNF) admission AND management of weakness, tube feed, infected retroperitoneal infection and seizure. ? This is a 71 year old male who presents from [facility] with primary admitting diagnosis of Seizure, [...] CT brain concerning for hydrocephalus. Tip of CIGAR MAKING SUPERVISOR shunt was found to be in the [...] to facility records. OBJECTIVE: Labs/diagnostics: 07/01/2021 Glucose=83 Zn=298 K=4.1 Wo=810 CO2=27 BUN=22 Creatinine=0.6 VGH=732 Ca=8.7 WBC=10.8 RBC=3.40 Hgb=9.3 Hct=29.9 Ccnnccac=872 Vital Signs: BP 128/80 Pulse 77 Temp 36.7 ?C (98 ?F) Resp 20 Ht 182.9 cm (6') Wt 113 kg (249 lb 3.2 oz) SpO2 96% BMI 33.80 kg/m? Physical Exam: Physical Exam Vitals reviewed. Constitutional: General: He is not in acute distress. (more content not included)...[facility]02-22-2022 [facility]02-22-2022 [facility]02-21-2022 [facility]02-21-2022 Note [facility]02-20-2022 [facility] 06-26-[facility]02-19-2022 [facility]02-18-2022 [facility]02[facility]18-2022 [facility]02-18-2022 [facility]02-17-2022 [facility]02-17-2022 Note [facility]02-17-2022 [facility] 06-22-2021 NoteHNO ID: [id number] Author: Xiomy England RN Service: Nursing Author Type: Registered Nurse Type: Nursing Progress Note Filed: 06/22/2021 7:22 PM Note Text: RT contacted as pt has wheezing auscultated and same auditory. For prn Treatment.[facility]02-16-2022 [facility]02-16-2022 [facility]02-16-2022 [facility]02-16-2022 [facility]02[facility]16-2022 [facility]02-15-2022 [facility]02-15-2022 Note [facility]02-15-2022 [facility] 06-21-2021 [facility]02-14-2022 [facility]02-14-2022 [facility]02-14-2022 [facility]02-14-2022 [facility]02-14-2022 [facility]02-13-2022 [facility]02-13-2022 Note [facility]02-13-2022 [facility] 06-19-2021 [facility]02-13-2022 [facility]02-12-2022 [facility]02-12-2022 [facility]02-12-2022 [facility]02-12-2022 [facility]02-12-2022 [facility]02-12-2022 Note [facility]02-12-2022 NoteHNO ID: [id number] Author: Interface Note Service: ? Author Type: ? Type: Progress Notes Filed: 06/18/2021 3:10 AM Note Text: Epic Scheduled Downtime: 06/18/2021 1:00:00 AM to 06/18/2021 2:27:00 [facility]02-11-2022 Note [facility]02-11-2022 [facility] 06-17-2021 [facility]02-11-2022 [facility]02-11-2022 [facility]02-10-2022 [facility]02-10-2022 [facility]02-10-2022 [facility]02-10-2022 [facility]02-10-2022 Note [facility]02-10-2022 [facility] 06-15-2021 [facility]02-09-2022 NoteHNO ID: [id number] Author: Lamonte Kline DO Service: Neurology ICU Author Type: Resident Type: Plan of Care Filed: 06/15/2021 6:21 PM Note Text: Patient's daughter Melissa updated on plan of care and critical condition, all questions answered.[facility]02-09-2022 [facility]02-09-2022 [facility]02-09-2022 [facility]02-09-2022 [facility]02-09-2022 Note [facility]02-09-2022 [facility] 06-15-2021 [facility]02-08-2022 [facility]02-08-2022 [facility]02-08-2022 [facility]02-08-2022 [facility]02-07-2022 [facility]02-07-2022 [facility]02-07-2022 Note [facility]02-07-2022 [facility] 06-12-2021 [facility]02-06-2022 [facility]02-06-2022 [facility]02-05-2022 [facility]02-05-2022 [facility]02-04-2022 [facility]02-04-2022 [facility] [facility] Note [facility]02-04-2022 [facility] 06-09-2021 [facility]02-03-2022 [facility]02-03-2022 [facility]02-03-2022 [facility]02-02-2022 [facility]02-02-2022 NoteHNO ID: [id number] Author: Luis Diaz RN Service: ? Author Type: Registered Nurse Type: Nursing Progress Note Filed: 06/08/2021 9:23 AM Note Text: Patient off the floor to OR at this time.[facility]02-02-2022 [facility]02-02-2022 [facility] 06-08-2021 NoteHNO ID: [id number] Author: Eloise Samuel RN Service: ? Author Type: Registered Nurse Type: Nursing Progress Note Filed: 06/08/2021 12:46 AM Note Text: Dr. Brito notified of changes throughout shift. No [facility] 06-07-2021 NoteHNO ID: [id number] Author: Eloise Samuel RN Service: ? Author Type: Registered Nurse Type: Nursing Progress Note Filed: 06/07/2021 8:01 PM Note Text: Neuro surg STEAM TUNNEL FEEDER notified of downward deviation of pupils. No new orders at this time.[facility]02-01-2022 [facility]02-01-2022 [facility]02-01-2022 [facility]02-01-2022 [facility]01-31-2022 [facility]01-31-2022 [facility]01-31-2022 Note [facility]01-31-2022 [facility] 06-05-2021 [facility]01-30-2022 [facility]01-30-2022 [facility]01-29-2022 [facility]01-29-2022 NoteHNO ID: [id number] Author: Jermaine Miller PA-C Service: Neurosurgery Author Type: Physician Environmental Designer Type: Plan of Care Filed: 06/04/2021 1:59 PM Note Text: Discussed with Dr. Charles CT brain results. At this time, continue with EVD at 5 [facility]01-29-2022 [facility] 06-04-2021 [facility]01-28-2022 [facility]01-28-2022 NoteHNO ID: [id number] Author: Mauricio Frank DO Service: Neurology ICU Author Type: Physician Type: Plan of Care Filed: 06/03/2021 2:38 PM Note Text: I spoke with Melissa and updated her over the phone. Mauricio Frank, [facility]01-28-2022 [facility]01-28-2022 [facility]01-27-2022 [facility]01-27-2022 [facility]01-27-2022 Note [facility]01-26-2022 [facility] 06-01-2021 [facility]01-26-2022 [facility]01-26-2022 [facility]01-26-2022 [facility]01-25-2022 [facility]01-25-2022 [facility]01-25-2022 [facility]01-25-2022 Note [facility]01-25-2022 [facility] 05-31-2021 [facility] Leg swelling- Primary Swelling of limb Acute deep vein thrombosis (DVT) of proximal vein of lower extremity, unspecified laterality (HCC) DVT, lower extremity, recurrent, unspecified laterality (HCC) Moderate malnutrition (HCC) Malnutrition of moderate degree History of seizures Personal history of other disorders of nervous system and sense organs documented in this encounter [facility] Work Phone: Evaluation noteNo assessment information available [facility] Work Phone: Evaluation note* Diagnosis Other fatigue- Primary documented in this encounter [facility] Work Phone: Evaluation note* Diagnosis Heel ulceration, left, with unspecified severity (HCC)- Primary documented in this encounter [facility] Work Phone: Evaluation note* Diagnosis Fall, initial encounter- Primary Anticoagulated Encounter for long-term (current) use of anticoagulants documented in this encounter [facility] Work Phone: Evaluation note* Diagnosis Left flank pain- Primary Abdominal pain, unspecified site Calculus of ureter Disease of prostate Unspecified disorder of prostate BPH with urinary obstruction Hypertrophy of prostate with urinary obstruction and other lower urinary tract symptoms (LUTS) [facility] Diagnosis Left flank pain Abdominal pain, unspecified site Calculus of ureter [facility] Diagnosis Left flank pain- Primary Abdominal pain, unspecified site BPH with urinary obstruction Hypertrophy of prostate with urinary obstruction and other lower urinary tract symptoms (LUTS) History of kidney stones documented [facility]* Name Dates Details Instructions not documented [id number] Work Phone: Instructions* Name Dates Details Instructions not documented [id number] [place] Work Phone: Reason for referral (narrative)No reason for referral information availableWKet[facility] Work Phone: Advance Directives No Advanced Directives Records FoundDocuments on File Type Date Recorded Patient Powertrain Engineer Expl anation Advance Directives and Living Will Power of Tour Leader Documents on File Type Date Recorded Patient Powertrain Engineer Expl anation Advance Directive(s) 06/02/2021 2:45 [...] Maker Relationship: 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 Adult Children (procurement representative) Documents on File Type Date Recorded Patient Powertrain Engineer Expl anation ACP-Advance Directive ACP-Power of Tour Leader Latest Code Status on File Code Status Date Activated Date Inactivated Comments Full Code 10/21/2021 4:09 AM Healthcare Agents on File Name Relationship Healthcare Agent Relationshi p Communication Melissa Gurpreet Child Primary Decision Maker deann Gurpreet Child Secondary Decision Maker Documents on File Type Date Recorded Patient Powertrain Engineer Expl anation ACP-Advance Directive ACP-Power of Tour Leader ACP-Do Not Resuscitate 11/01/2021 7:03 AM Latest Code Status on File Code Status Date Activated Date Inactivated Comments Full Code 10/21/2021 4:09 AM 10/29/2021 7:25 PM Healthcare Agents on File Name Relationship Healthcare Agent Relationshi p Communication Melissa Gurpreet Child Primary Decision Maker deann Gurpreet Child Secondary Decision Maker Documents on File Type Date Recorded Patient Powertrain Engineer Expl anation ACP-Do Not Resuscitate 11/03/2021 10:15 AM ACP-Do Not Resuscitate 11/01/2021 7:03 AM Healthcare Agents on File Name Relationship Healthcare Agent Relationshi p Communication Melissa Gurpreet Child Primary Decision Maker deann Gurpreet Child Secondary Decision Maker Documents on File Type Date Recorded Patient Powertrain Engineer Expl anation ACP-Do Not Resuscitate 11/03/2021 [...] on File Type Date Recorded Patient Powertrain Engineer Expl anation DNR (Do Not Resuscitate) 10/31/2021 DNR (Do Not Resuscitate) 10/21/2021 Documents on File Type Date Recorded Patient Powertrain Engineer Expl anation DNR (Do Not Resuscitate) [...] WORK LABWORK Chief Complaint LAB WORK LABWORK CARE HOME LAB WORK CARE HOME LABWORK Chief Complaint LAB WORK LABWORK CARE HOME LAB WORK CARE HOME LABWORK LABWORK LABWORK CARE HOME LAB WORK CARE HOME LABWORK CARE HOME LAB WORK LABWORK CARE HOME LAB WORK LABWORK CARE HOME LABWORK Chief Complaint LAB WORK LABWORK CARE HOME LAB WORK CARE HOME LABWORK LABWORK LABWORK CARE HOME LAB WORK CARE HOME LABWORK CARE HOME LAB WORK LABWORK CARE HOME LAB WORK LABWORK CARE HOME LABWORK CARE HOME LABWORK LABWORK Chief Complaint LAB WORK LABWORK CARE HOME LAB WORK CARE HOME LABWORK LABWORK LABWORK CARE HOME LAB WORK CARE HOME LABWORK CARE HOME LAB WORK LABWORK CARE HOME LAB WORK LABWORK CARE HOME LABWORK CARE HOME LABWORK LABWORK CARE HOME LAB WORK Chief Complaint LABWORK CARE HOME LAB WORK CARE HOME LABWORK LABWORK LABWORK CARE HOME LAB WORK CARE HOME LABWORK CARE HOME LAB WORK LABWORK CARE HOME LAB WORK LABWORK CARE HOME LABWORK CARE HOME LABWORK LABWORK LABWORK CARE HOME LAB WORK Chief Complaint LABWORK CARE HOME LAB WORK CARE HOME LABWORK LABWORK LABWORK CARE HOME LAB WORK CARE HOME LABWORK CARE HOME LAB WORK LABWORK CARE HOME LAB WORK LABWORK CARE HOME LABWORK CARE HOME LABWORK LABWORK LABWORK CARE HOME LAB WORK LABWORK CARE HOME LABWORK CARE HOME LAB WORK CARE HOME LABWORK Chief Complaint CARE HOME LAB WOR K CARE HOME LABWORK LABWORK LABWORK CARE HOME LAB WORK CARE HOME LABWORK CARE HOME LAB WORK LABWORK CARE HOME LAB WORK LABWORK CARE HOME LABWORK CARE HOME LABWORK LABWORK LABWORK CARE HOME LAB WORK LABWORK CARE HOME LABWORK CARE HOME LAB WORK CARE HOME LABWORK CARE HOME LAB WORK Chief Complaint CARE HOME LABWORK LABWORK LABWORK CARE HOME LAB WORK CARE HOME LABWORK CARE HOME LAB WORK LABWORK CARE HOME LAB WORK LABWORK CARE HOME LABWORK CARE HOME LABWORK LABWORK LABWORK CARE HOME LAB WORK LABWORK CARE HOME LABWORK CARE HOME LAB WORK CARE HOME LABWORK LABWORK CARE HOME LAB WORK Chief Complaint CARE HOME LAB WOR K CARE HOME LABWORK CARE HOME LAB WORK LABWORK CARE HOME LAB WORK LABWORK CARE HOME LABWORK CARE HOME LABWORK LABWORK LABWORK CARE HOME LAB WORK LABWORK CARE HOME LABWORK CARE HOME LAB WORK CARE HOME LABWORK LABWORK LABWORK CARE HOME LAB WORK CARE HOME PATIENT CARE HOME LABWORK CARE HOME LABWORK Chief Complaint LABWORK CARE HOME LAB WORK LABWORK CARE HOME LABWORK CARE HOME LABWORK LABWORK LABWORK CARE HOME LAB WORK LABWORK CARE HOME LABWORK CARE HOME LAB WORK CARE HOME LABWORK LABWORK LABWORK CARE HOME LAB WORK CARE HOME PATIENT CARE HOME LABWORK CARE HOME LABWORK CARE HOME LAB WORK Chief Complaint LABWORK CARE HOME LABWORK CARE HOME LABWORK LABWORK LABWORK CARE HOME LAB WORK LABWORK CARE HOME LABWORK CARE HOME LAB WORK CARE HOME LABWORK LABWORK LABWORK CARE HOME LAB WORK CARE HOME PATIENT CARE HOME LABWORK CARE HOME LABWORK CARE HOME LAB WORK CARE HOME LAB WORK CARE HOME LAB WORK Chief Complaint LABWORK LABWORK CARE HOME LAB WORK CARE HOME PATIENT CARE HOME LABWORK CARE HOME LABWORK CARE HOME LAB WORK CARE HOME LAB WORK CARE HOME LAB WORK CARE HOME LABWORK CARE HOME LABWORK LABWORK CARE HOME LAB WORK LABWORK Chief Complaint CARE HOME LAB WOR K CARE HOME PATIENT CARE HOME LABWORK CARE HOME LABWORK CARE HOME LAB WORK CARE HOME LAB WORK CARE HOME LAB WORK CARE HOME LABWORK CARE HOME LABWORK LABWORK CARE HOME LAB WORK LABWORK CARE HOME LABWORK Chief Complaint CARE HOME PATIENT CARE HOME LABWORK CARE HOME LABWORK CARE HOME LAB WORK CARE HOME LAB WORK CARE HOME LAB WORK CARE HOME LABWORK CARE HOME LABWORK LABWORK CARE HOME LAB WORK LABWORK CARE HOME LABWORK CARE HOME LABWORK Chief Complaint CARE HOME LABWORK CARE HOME LAB WORK CARE HOME LAB WORK CARE HOME LAB WORK CARE HOME LABWORK CARE HOME LABWORK LABWORK CARE HOME LAB WORK LABWORK CARE HOME LABWORK CARE HOME LABWORK CARE HOME LABWORK Chief Complaint CARE HOME LABWORK CARE HOME LAB WORK CARE HOME LAB WORK CARE HOME LAB WORK CARE HOME LABWORK CARE HOME LABWORK LABWORK CARE HOME LAB WORK LABWORK CARE HOME LABWORK CARE HOME LABWORK CARE HOME LABWORK CARE HOME LABWORK Chief Complaint CARE HOME LABWORK LABWORK CARE HOME LAB WORK LABWORK CARE HOME LABWORK CARE HOME LABWORK CARE HOME LABWORK CARE HOME LABWORK CARE HOME LABWORK LABWORK CARE HOME LABWORK Chief Complaint LABWORK CARE HOME LAB WORK LABWORK CARE HOME LABWORK CARE HOME LABWORK CARE HOME LABWORK CARE HOME LABWORK CARE HOME LABWORK LABWORK LABWORK CARE HOME LABWORK CARE HOME LAB WORK CARE HOME LABWORK CARE HOME LAB WORK Chief Complaint LABWORK CARE HOME LAB WORK LABWORK CARE HOME LABWORK CARE HOME LABWORK CARE HOME LABWORK CARE HOME LABWORK CARE HOME LABWORK LABWORK LABWORK CARE HOME LABWORK CARE HOME LAB WORK CARE HOME LABWORK CARE HOME LAB WORK CARE HOME LABWORK Chief Complaint LABWORK CARE HOME LAB WORK LABWORK CARE HOME LABWORK CARE HOME LABWORK CARE HOME LABWORK CARE HOME LABWORK CARE HOME LABWORK LABWORK LABWORK CARE HOME LABWORK CARE HOME LAB WORK CARE HOME LABWORK CARE HOME LAB WORK CARE HOME LABWORK LABWORK Chief Complaint CARE HOME LABWORK CARE HOME LABWORK CARE HOME LABWORK CARE HOME LABWORK CARE HOME LABWORK LABWORK LABWORK CARE HOME LABWORK CARE HOME LAB WORK CARE HOME LABWORK CARE HOME LAB WORK CARE HOME LABWORK LABWORK CARE HOME LABWORK Chief Complaint CARE HOME LABWORK CARE HOME LABWORK CARE HOME LABWORK CARE HOME LABWORK CARE HOME LABWORK LABWORK LABWORK CARE HOME LABWORK CARE HOME LAB WORK CARE HOME LABWORK CARE HOME LAB WORK CARE HOME LABWORK LABWORK CARE HOME LABWORK LABWORK Chief Complaint CARE HOME LABWORK LABWORK LABWORK CARE HOME LABWORK CARE HOME LAB WORK CARE HOME LABWORK CARE HOME LAB WORK CARE HOME LABWORK LABWORK CARE HOME LABWORK LABWORK CARE HOME LAB WORK CARE HOME LAB WORK CARE HOME LABWORK Chief Complaint LABWORK CARE HOME LABWORK LABWORK CARE HOME LAB WORK CARE HOME LAB WORK CARE HOME LABWORK CARE HOME LABWORK CARE HOME LAB WORK CARE HOME LAB WORK CARE HOME LAB WORK LABWORK CARE HOME LABWORK Chief Complaint CARE HOME LAB WOR K CARE HOME LAB WORK CARE HOME LABWORK CARE HOME LABWORK CARE HOME LAB WORK CARE HOME LAB WORK CARE HOME LAB WORK LABWORK CARE HOME LABWORK LABWORK CARE HOME LAB WORK CARE HOME LAB WORK Chief Complaint CARE HOME LAB WOR K CARE HOME LABWORK CARE HOME LABWORK CARE HOME LAB WORK CARE HOME LAB WORK CARE HOME LAB WORK LABWORK CARE HOME LABWORK LABWORK CARE HOME LAB WORK CARE HOME LAB WORK Chief Complaint CARE HOME LABWORK CARE HOME LABWORK CARE HOME LAB WORK CARE HOME LAB WORK CARE HOME LAB WORK LABWORK CARE HOME LABWORK LABWORK CARE HOME LAB WORK CARE HOME LAB WORK CARE HOME LABWORK LABWORK LABWORK Chief Complaint CARE HOME LAB WOR K CARE HOME LAB WORK CARE HOME LAB WORK LABWORK CARE HOME LABWORK LABWORK CARE HOME LAB WORK CARE HOME LAB WORK CARE HOME LABWORK LABWORK LABWORK LABWORK LABWORK LABWORK Chief Complaint CARE HOME LAB WOR K LABWORK CARE HOME LABWORK LABWORK CARE HOME LAB WORK CARE HOME LAB WORK CARE HOME LABWORK LABWORK LABWORK LABWORK LABWORK CARE HOME LABWORK CARE HOME LAB WORK LABWORK CARE HOME LAB WORK CARE HOME LAB WORK Chief Complaint CARE HOME LAB WOR K LABWORK CARE HOME LABWORK LABWORK CARE HOME LAB WORK CARE HOME LAB WORK CARE HOME LABWORK LABWORK LABWORK LABWORK LABWORK CARE HOME LABWORK CARE HOME LAB WORK LABWORK CARE HOME LAB WORK CARE HOME LAB WORK CARE HOME LABWORK Chief Complaint CARE HOME LAB WOR K CARE HOME LAB WORK CARE HOME LABWORK LABWORK LABWORK LABWORK LABWORK CARE HOME LABWORK CARE HOME LAB WORK LABWORK CARE HOME LAB WORK CARE HOME LAB WORK CARE HOME LABWORK NUSING HOME LAB WORK Chief Complaint CARE HOME LAB WOR K CARE HOME LABWORK LABWORK LABWORK LABWORK LABWORK CARE HOME LABWORK CARE HOME LAB WORK LABWORK CARE HOME LAB WORK CARE HOME LAB WORK CARE HOME LABWORK NUSING HOME LAB WORK LABWORK Chief Complaint CARE HOME LAB WOR K CARE HOME LABWORK LABWORK LABWORK LABWORK LABWORK CARE HOME LABWORK CARE HOME LAB WORK LABWORK CARE HOME LAB WORK CARE HOME LAB WORK CARE HOME LABWORK NUSING HOME LAB WORK CARE HOME LABWORK LABWORK Chief Complaint LABWORK CARE HOME LAB WORK CARE HOME LAB WORK CARE HOME LABWORK NUSING HOME LAB WORK CARE HOME LABWORK LABWORK CARE HOME LABWORK CARE HOME LAB WORK LABWORK LABWORK Chief Complaint NUSING HOME LAB WORK CARE HOME LABWORK LABWORK CARE HOME LABWORK CARE HOME LAB WORK LABWORK CARE HOME LAB WORK LABWORK LABWORK Chief Complaint NUSING HOME LAB WORK CARE HOME LABWORK LABWORK CARE HOME LABWORK CARE HOME LAB WORK LABWORK CARE HOME LAB WORK LABWORK CARE HOME LAB WORK LABWORK Chief Complaint CARE HOME LABWORK LABWORK CARE HOME LABWORK CARE HOME LAB WORK LABWORK CARE HOME LAB WORK LABWORK CARE HOME LAB WORK LABWORK LABWORK Chief Complaint CARE HOME LABWORK LABWORK CARE HOME LABWORK CARE HOME LAB WORK LABWORK CARE HOME LAB WORK LABWORK CARE HOME LAB WORK LABWORK LABWORK LABWORK Chief Complaint CARE HOME LABWORK LABWORK CARE HOME LABWORK CARE HOME LAB WORK LABWORK CARE HOME LAB WORK LABWORK CARE HOME LAB WORK LABWORK LABWORK LABWORK LABWORK Chief Complaint CARE HOME LABWORK LABWORK CARE HOME LABWORK CARE HOME LAB WORK LABWORK CARE HOME LAB WORK LABWORK CARE HOME LAB WORK LABWORK LABWORK CARE HOME LAB WORK LABWORK LABWORK LABWORK Chief Complaint LABWORK CARE HOME LABWORK CARE HOME LAB WORK LABWORK CARE HOME LAB WORK LABWORK CARE HOME LAB WORK LABWORK LABWORK CARE HOME LAB WORK LABWORK LABWORK LABWORK LABWORK LABWORK LABWORK LABWORK Chief Complaint CARE HOME LABWORK CARE HOME LAB WORK LABWORK CARE HOME LAB WORK LABWORK CARE HOME LAB WORK LABWORK LABWORK CARE HOME LAB WORK LABWORK LABWORK LABWORK LABWORK LABWORK LABWORK LABWORK LABWORK Chief Complaint LABWORK CARE HOME LAB WORK LABWORK CARE HOME LAB WORK LABWORK LABWORK CARE HOME LAB WORK LABWORK LABWORK LABWORK LABWORK LABWORK LABWORK LABWORK LABWORK LABWORK Chief Complaint CARE HOME LABWORK LABWORK LABWORK LABWORK LABWORK CARE HOME LABWORK CARE HOME LAB WORK LABWORK CARE HOME LAB WORK CARE HOME LAB WORK CARE HOME LABWORK NUSING HOME LAB WORK CARE HOME LABWORK LABWORK CARE HOME LABWORK CARE HOME LAB WORK Chief Complaint Admit Date CARE HOME LAB WORK March 13, 2024 5:00am LABWORK March 14, 2024 5 :00am CARE HOME LAB WORK March 17 5:00am CARE HOME LAB WORK March 18 5:00am CARE HOME LAB WORK March 19 4:00am CARE HOME LAB WORK March 20 5:00am CARE HOME LAB WORK March 24 5:00am CARE HOME LAB WORK March 27 5:00am LABWORK March 31, 2024 5:00am CARE HOME LAB WORK April 04 5:00am LABWORK April 07, 2024 5 :00am CARE HOME LAB WORK April 10, 2024 5:00am CARE HOME LAB WORK April 14, 2024 5:00am CARE HOME LAB WORK April 17 5:00am LABWORK April 21, 2024 5:00am CARE HOME LAB WORK April 24 4:00am LABWORK April 28, 2024 5:00am CARE HOME LAB WORK May 01 4:00am CARE HOME LAB WORK May 05 5:00am CARE HOME LAB WORK May 08, 2024 5:00am CARE HOME LAB WORK May 09, 2024 4:00am LABWORK May 12, 2024 5: 00am CARE HOME LAB WORK May 15, 2024 5:00am CARE HOME LAB WORK May 19, 2024 4:00am CARE HOME LAB WORK May 20, 2024 5:00am CARE HOME LAB WORK May 22, 2024 5:00am LABWORK May 26, 2024 5 :00am CARE HOME LAB WORK May 29, 2024 5:00am CARE HOME LAB WORK June 02, 2024 5:00am CARE HOME LAB WORK June 05, 2024 5:00am LABWORK June 09, 2024 5 :00am CARE HOME LAB WORK June 12, 2024 5:00am CARE HOME LAB WORK June 16 5:00am CARE HOME LAB WORK June 19 5:00am LABWORK June 23, 2024 5:00am CARE HOME LAB WORK June 26 5:00am CARE HOME LAB WORK June 30 5:00am Chief Complaint Admit Date LABWORK April 07, 2024 5 :00am CARE HOME LAB WORK April 10, 2024 5:00am CARE HOME LAB WORK April 14, 2024 5:00am CARE HOME LAB WORK April 17 5:00am LABWORK April 21, 2024 5:00am CARE HOME LAB WORK April 24 4:00am LABWORK April 28, 2024 5:00am CARE HOME LAB WORK May 01 4:00am CARE HOME LAB WORK May 05 5:00am CARE HOME LAB WORK May 08, 2024 5:00am CARE HOME LAB WORK May 09, 2024 4:00am LABWORK May 12, 2024 5: 00am CARE HOME LAB WORK May 15, 2024 5:00am CARE HOME LAB WORK May 19, 2024 4:00am CARE HOME LAB WORK May 20, 2024 5:00am CARE HOME LAB WORK May 22, 2024 5:00am LABWORK May 26, 2024 5 :00am CARE HOME LAB WORK May 29, 2024 5:00am CARE HOME LAB WORK June 02, 2024 5:00am CARE HOME LAB WORK June 05, 2024 5:00am LABWORK June 09, 2024 5 :00am CARE HOME LAB WORK June 12, 2024 5:00am CARE HOME LAB WORK June 16 5:00am CARE HOME LAB WORK June 19 5:00am LABWORK June 23, 2024 5:00am CARE HOME LAB WORK June 26 5:00am CARE HOME LAB WORK June 30 5:00am CARE HOME LAB WORK July 03 5:00am CARE HOME LAB WORK July 07, 2024 4: 00am LABWORK July 11, 2024 5:00 am LABWORK July 14, 2024 5:0 0am CARE HOME LAB WORK July 17, 2024 4 :00am CARE HOME LAB WORK July 24, 2024 4 :00am Chief Complaint Admit Date CARE HOME LAB WORK April 14, 2024 5:00am CARE HOME LAB WORK April 17 5:00am LABWORK April 21, 2024 5:00am CARE HOME LAB WORK April 24 4:00am LABWORK April 28, 2024 5:00am CARE HOME LAB WORK May 01 4:00am CARE HOME LAB WORK May 05 5:00am CARE HOME LAB WORK May 08, 2024 5:00am CARE HOME LAB WORK May 09, 2024 4:00am LABWORK May 12, 2024 5: 00am CARE HOME LAB WORK May 15, 2024 5:00am CARE HOME LAB WORK May 19, 2024 4:00am CARE HOME LAB WORK May 20, 2024 5:00am CARE HOME LAB WORK May 22, 2024 5:00am LABWORK May 26, 2024 5 :00am CARE HOME LAB WORK May 29, 2024 5:00am CARE HOME LAB WORK June 02, 2024 5:00am CARE HOME LAB WORK June 05, 2024 5:00am LABWORK June 09, 2024 5 :00am CARE HOME LAB WORK June 12, 2024 5:00am CARE HOME LAB WORK June 16 5:00am CARE HOME LAB WORK June 19 5:00am LABWORK June 23, 2024 5:00am CARE HOME LAB WORK June 26 5:00am CARE HOME LAB WORK June 30 5:00am CARE HOME LAB WORK July 03 5:00am CARE HOME LAB WORK July 07, 2024 4: 00am LABWORK July 11, 2024 5:00 am LABWORK July 14, 2024 5:0 0am CARE HOME LAB WORK July 17, 2024 4 :00am CARE HOME LAB WORK July 24, 2024 4 :00am LABWORK July 25, 2024 5:0 0am Chief Complaint Admit Date CARE HOME LAB WORK April 14, 2024 5:00am CARE HOME LAB WORK April 17 5:00am LABWORK April 21, 2024 5:00am CARE HOME LAB WORK April 24 4:00am LABWORK April 28, 2024 5:00am CARE HOME LAB WORK May 01 4:00am CARE HOME LAB WORK May 05 5:00am CARE HOME LAB WORK May 08, 2024 5:00am CARE HOME LAB WORK May 09, 2024 4:00am LABWORK May 12, 2024 5: 00am CARE HOME LAB WORK May 15, 2024 5:00am CARE HOME LAB WORK May 19, 2024 4:00am CARE HOME LAB WORK May 20, 2024 5:00am CARE HOME LAB WORK May 22, 2024 5:00am LABWORK May 26, 2024 5 :00am CARE HOME LAB WORK May 29, 2024 5:00am CARE HOME LAB WORK June 02, 2024 5:00am CARE HOME LAB WORK June 05, 2024 5:00am LABWORK June 09, 2024 5 :00am CARE HOME LAB WORK June 12, 2024 5:00am CARE HOME LAB WORK June 16 5:00am CARE HOME LAB WORK June 19 5:00am LABWORK June 23, 2024 5:00am CARE HOME LAB WORK June 26 5:00am CARE HOME LAB WORK June 30 5:00am CARE HOME LAB WORK July 03 5:00am CARE HOME LAB WORK July 07, 2024 4: 00am LABWORK July 11, 2024 5:00 am LABWORK July 14, 2024 5:0 0am CARE HOME LAB WORK July 17, 2024 4 :00am CARE HOME LAB WORK July 21, 2024 5 :00am CARE HOME LAB WORK July 24, 2024 4 :00am LABWORK July 25, 2024 5:0 0am CARE HOME LAB WORK July 31, 2024 4 :00am Chief Complaint Admit Date CARE HOME LAB WORK April 17 5:00am LABWORK April 21, 2024 5:00am CARE HOME LAB WORK April 24 4:00am LABWORK April 28, 2024 5:00am CARE HOME LAB WORK May 01 4:00am CARE HOME LAB WORK May 05 5:00am CARE HOME LAB WORK May 08, 2024 5:00am CARE HOME LAB WORK May 09, 2024 4:00am LABWORK May 12, 2024 5: 00am CARE HOME LAB WORK May 15, 2024 5:00am CARE HOME LAB WORK May 19, 2024 4:00am CARE HOME LAB WORK May 20, 2024 5:00am CARE HOME LAB WORK May 22, 2024 5:00am LABWORK May 26, 2024 5 :00am CARE HOME LAB WORK May 29, 2024 5:00am CARE HOME LAB WORK June 02, 2024 5:00am CARE HOME LAB WORK June 05, 2024 5:00am LABWORK June 09, 2024 5 :00am CARE HOME LAB WORK June 12, 2024 5:00am CARE HOME LAB WORK June 16 5:00am CARE HOME LAB WORK June 19 5:00am LABWORK June 23, 2024 5:00am CARE HOME LAB WORK June 26 5:00am CARE HOME LAB WORK June 30 5:00am CARE HOME LAB WORK July 03 5:00am CARE HOME LAB WORK July 07, 2024 4: 00am LABWORK July 11, 2024 5:00 am LABWORK July 14, 2024 5:0 0am CARE HOME LAB WORK July 17, 2024 4 :00am CARE HOME LAB WORK July 21, 2024 5 :00am CARE HOME LAB WORK July 24, 2024 4 :00am LABWORK July 25, 2024 5:0 0am CARE HOME LAB WORK July 28, 2024 5 :00am CARE HOME LAB WORK July 31, 2024 4 :00am Chief Complaint Admit Date CARE HOME LAB WORK April 24 4:00am LABWORK April 28, 2024 5:00am CARE HOME LAB WORK May 01 4:00am CARE HOME LAB WORK May 05 5:00am CARE HOME LAB WORK May 08, 2024 5:00am CARE HOME LAB WORK May 09, 2024 4:00am LABWORK May 12, 2024 5: 00am CARE HOME LAB WORK May 15, 2024 5:00am CARE HOME LAB WORK May 19, 2024 4:00am CARE HOME LAB WORK May 20, 2024 5:00am CARE HOME LAB WORK May 22, 2024 5:00am LABWORK May 26, 2024 5 :00am CARE HOME LAB WORK May 29, 2024 5:00am CARE HOME LAB WORK June 02, 2024 5:00am CARE HOME LAB WORK June 05, 2024 5:00am LABWORK June 09, 2024 5 :00am [facility] June 12, 2024 5:00am [facility] June 16 5:00am [facility] June 19 5:00am LABWORK June 23, 2024 5:00am [facility] June 26 5:00am [facility] June 30 5:00am [facility] July 03 5:00am [facility] July 07, 2024 4: 00am LABWORK July 11, 2024 5:00 am LABWORK July 14, 2024 5:0 0am [facility] July 17, 2024 4 :00am [facility] July 21, 2024 5 :00am [facility] July 24, 2024 4 :00am LABWORK July 25, 2024 5:0 0am [facility] July 28, 2024 5 :00am [facility] July 31, 2024 4 :00am LABWORK August 04, 2024 5:0 0am Chief Complaint Admit Date [facility] May 15, 2024 5:00am [facility] May 19, 2024 4:00am [facility] May 20, 2024 5:00am [facility] May 22, 2024 5:00am LABWORK May 26, 2024 5 :00am [facility] May 29, 2024 5:00am [facility] June 02, 2024 5:00am [facility] June 05, 2024 5:00am LABWORK June 09, 2024 5 :00am [facility] June 12, 2024 5:00am [facility] June 16 5:00am [facility] June 19 5:00am LABWORK June 23, 2024 5:00am [facility] June 26 5:00am [facility] June 30 5:00am [facility] July 03 5:00am [facility] July 07, 2024 4: 00am LABWORK July 11, 2024 5:00 am LABWORK July 14, 2024 5:0 0am [facility] July 17, 2024 4 :00am [facility] July 21, 2024 5 :00am [facility] July 24, 2024 4 :00am LABWORK July 25, 2024 5:0 0am [facility] July 28, 2024 5 :00am [facility] July 31, 2024 4 :00am LABWORK August 04, 2024 5:0 0am LABWORK August 07, 2024 5:00 am [facility] August 11, 2024 5: 00am [facility] August 14, 2024 5 :00am [facility] August 18, 2024 5 :00am Chief Complaint Admit Date [facility] May 20, 2024 5:00am [facility] May 22, 2024 5:00am LABWORK May 26, 2024 5 :00am [facility] May 29, 2024 5:00am [facility] June 02, 2024 5:00am [facility] June 05, 2024 5:00am LABWORK June 09, 2024 5 :00am [facility] June 12, 2024 5:00am [facility] June 16 5:00am [facility] June 19 5:00am LABWORK June 23, 2024 5:00am [facility] June 26 5:00am [facility] June 30 5:00am [facility] July 03 5:00am [facility] July 07, 2024 4: 00am LABWORK July 11, 2024 5:00 am LABWORK July 14, 2024 5:0 0am [facility] July 17, 2024 4 :00am [facility] July 21, 2024 5 :00am [facility] July 24, 2024 4 :00am LABWORK July 25, 2024 5:0 0am [facility] July 28, 2024 5 :00am [facility] July 31, 2024 4 :00am LABWORK August 04, 2024 5:0 0am LABWORK August 07, 2024 5:00 am [facility] August 11, 2024 5: 00am [facility] August 14, 2024 5 :00am [facility] August 18, 2024 5 :00am LABWORK August 28, 2024 5:0 0am Chief Complaint Admit Date [facility] May 22, 2024 5:00am LABWORK May 26, 2024 5 :00am [facility] May 29, 2024 5:00am [facility] June 02, 2024 5:00am [facility] June 05, 2024 5:00am LABWORK June 09, 2024 5 :00am [facility] June 12, 2024 5:00am [facility] June 16 5:00am [facility] June 19 5:00am LABWORK June 23, 2024 5:00am [facility] June 26 5:00am [facility] June 30 5:00am [facility] July 03 5:00am [facility] July 07, 2024 4: 00am LABWORK July 11, 2024 5:00 am LABWORK July 14, 2024 5:0 0am [facility] July 17, 2024 4 :00am [facility] July 21, 2024 5 :00am [facility] July 24, 2024 4 :00am LABWORK July 25, 2024 5:0 0am [facility] July 28, 2024 5 :00am [facility] July 31, 2024 4 :00am LABWORK August 04, 2024 5:0 0am LABWORK August 07, 2024 5:00 am [facility] August 11, 2024 5: 00am [facility] August 14, 2024 5 :00am [facility] August 18, 2024 5 :00am [facility] August 21, 2024 5 :00am LABWORK August 28, 2024 5:0 0am LABWORK September 01, 2024 5:0 0am Chief Complaint Admit Date [facility] June 05, 2024 5:00am LABWORK June 09, 2024 5 :00am [facility] June 12, 2024 5:00am [facility] June 16 5:00am [facility] June 19 5:00am LABWORK June 23, 2024 5:00am [facility] June 26 5:00am [facility] June 30 5:00am [facility] July 03 5:00am [facility] July 07, 2024 4: 00am LABWORK July 11, 2024 5:00 am LABWORK July 14, 2024 5:0 0am [facility] July 17, 2024 4 :00am [facility] July 21, 2024 5 :00am [facility] July 24, 2024 4 :00am LABWORK July 25, 2024 5:0 0am [facility] July 28, 2024 5 :00am [facility] July 31, 2024 4 :00am LABWORK August 04, 2024 5:0 0am LABWORK August 07, 2024 5:00 am [facility] August 11, 2024 5: 00am [facility] August 14, 2024 5 :00am [facility] August 18, 2024 5 :00am [facility] August 21, 2024 5 :00am [facility] August 25, 2024 4 :00am LABWORK August 28, 2024 5:0 0am LABWORK September 01, 2024 5:0 0am LABWORK September 04, 2024 5:00am Chief Complaint Admit Date [facility] June 05, 2024 5:00am LABWORK June 09, 2024 5 :00am [facility] June 12, 2024 5:00am [facility] June 16 5:00am [facility] June 19 5:00am LABWORK June 23, 2024 5:00am [facility] June 26 5:00am [facility] June 30 5:00am [facility] July 03 5:00am [facility] July 07, 2024 4: 00am LABWORK July 11, 2024 5:00 am LABWORK July 14, 2024 5:0 0am [facility] July 17, 2024 4 :00am [facility] July 21, 2024 5 :00am [facility] July 24, 2024 4 :00am LABWORK July 25, 2024 5:0 0am [facility] July 28, 2024 5 :00am [facility] July 31, 2024 4 :00am LABWORK August 04, 2024 5:0 0am LABWORK August 07, 2024 5:00 am [facility] August 11, 2024 5: 00am [facility] August 14, 2024 5 :00am [facility] August 18, 2024 5 :00am [facility] August 21, 2024 5 :00am [facility] August 25, 2024 4 :00am LABWORK August 28, 2024 5:0 0am LABWORK September 01, 2024 5:0 0am LABWORK September 04, 2024 5:00am LABWORK September 15, 2024 5:00a m Chief Complaint Admit Date [facility] June 19 5:00am LABWORK June 23, 2024 5:00am [facility] June 26 5:00am [facility] June 30 5:00am [facility] July 03 5:00am [facility] July 07, 2024 4: 00am LABWORK July 11, 2024 5:00 am LABWORK July 14, 2024 5:0 0am [facility] July 17, 2024 4 :00am [facility] July 21, 2024 5 :00am [facility] July 24, 2024 4 :00am LABWORK July 25, 2024 5:0 0am [facility] July 28, 2024 5 :00am [facility] July 31, 2024 4 :00am LABWORK August 04, 2024 5:0 0am LABWORK August 07, 2024 5:00 am [facility] August 11, 2024 5: 00am [facility] August 14, 2024 5 :00am [facility] August 18, 2024 5 :00am [facility] August 21, 2024 5 :00am [facility] August 25, 2024 4 :00am LABWORK August 28, 2024 5:0 0am LABWORK September 01, 2024 5:0 0am LABWORK September 04, 2024 5:00am [facility] September 08, 2024 4:00 am [facility] September 11, 2024 5:00 am LABWORK September 15, 2024 5:00a m [facility] September 25, 2024 5:0 0am [facility] September 30, 2024 4:0 0am Chief Complaint Admit Date [facility] June 12, 2024 5:00am [facility] June 16 5:00am [facility] June 19 5:00am LABWORK June 23, 2024 5:00am [facility] June 26 5:00am [facility] June 30 5:00am [facility] July 03 5:00am [facility] July 07, 2024 4: 00am LABWORK July 11, 2024 5:00 am LABWORK July 14, 2024 5:0 0am [facility] July 17, 2024 4 :00am [facility] July 21, 2024 5 :00am [facility] July 24, 2024 4 :00am LABWORK July 25, 2024 5:0 0am [facility] July 28, 2024 5 :00am [facility] July 31, 2024 4 :00am LABWORK August 04, 2024 5:0 0am LABWORK August 07, 2024 5:00 am [facility] August 11, 2024 5: 00am [facility] August 14, 2024 5 :00am [facility] August 18, 2024 5 :00am [facility] August 21, 2024 5 :00am [facility] August 25, 2024 4 :00am LABWORK August 28, 2024 5:0 0am LABWORK September 01, 2024 5:0 0am LABWORK September 04, 2024 5:00am [facility] September 08, 2024 4:00 am LABWORK September 15, 2024 5:00a m Chief Complaint Admit Date [facility] July 07, 2024 4: 00am LABWORK July 11, 2024 5:00 am LABWORK July 14, 2024 5:0 0am [facility] July 17, 2024 4 :00am [facility] July 21, 2024 5 :00am [facility] July 24, 2024 4 :00am LABWORK July 25, 2024 5:0 0am [facility] July 28, 2024 5 :00am [facility] July 31, 2024 4 :00am LABWORK August 04, 2024 5:0 0am LABWORK August 07, 2024 5:00 am [facility] August 11, 2024 5: 00am [facility] August 14, 2024 5 :00am [facility] August 18, 2024 5 :00am [facility] August 21, 2024 5 :00am [facility] August 25, 2024 4 :00am LABWORK August 28, 2024 5:0 0am LABWORK September 01, 2024 5:0 0am LABWORK September 04, 2024 5:00am [facility] September 08, 2024 4:00 am [facility] September 11, 2024 5:00 am LABWORK September 15, 2024 5:00a m [facility] September 18, 2024 5:0 0am [facility] September 22, 2024 5:0 0am [facility] September 25, 2024 5:0 0am [facility] September 30, 2024 4:0 0am [facility] October 02, 2024 5:0 0am [facility] October 09, 2024 5:0 0am Chief Complaint Admit Date [facility] October 09, 2024 5:0 0am LABWORK October 13, 2024 5:00a m [facility] October 16, 2024 5: 00am [facility] October 20, 2024 4: 00am [facility] October 23, 2024 5: 00am [facility] October 27, 2024 4: 00am [facility] October 30, 2024 6: 35am LABWORK November 03, 2024 5:00 am [facility] November 06, 2024 4:0 0am [facility] November 10, 2024 4:0 0am [facility] November 13, 2024 5: 00am [facility] November 17, 2024 5: 00am [facility] November 20, 2024 5: 00am [facility] November 24, 2024 5: 00am [facility] November 27, 2024 5: 00am LABWORK November 28, 2024 5:00 am LABWORK December 01, 2024 5:00 am [facility] December 02, 2024 4: 00am [facility] December 04, 2024 5: 00am [facility] December 08, 2024 5 :00am LABWORK December 11, 2024 6:0 0am [facility] December 15, 2024 4:00am [facility] December 18, 2024 5:00am [facility] December 22, 2024 4:00am LABWORK December 24, 2024 5: 00am [facility] December 25, 2024 5:00am [facility] December 26, 2024 5:00am LABWORK December 29, 2024 5: 00am [facility] January 01, 2025 5:00am [facility] January 06 5:00am LABWORK January 08, 2025 5:00am [facility] January 12 4:00am [facility] January 15 5:00am LABWORK January 19, 2025 5:00am [facility] January 26 4:00am Reason for Referral Specialty Diagnoses / Procedures Referred By Contac t Referred To Contact Urology Diagnoses Other fatigue Lanette Munguia DO [address] [place] [address] [facility] [address] [place] [id number] Referral ID Status Reason Start Date Expiration Date V isits Requested Visits Authorized [id number] Open Specialty Services Required 11/01/2021 11/01/2022 1 1 Scheduling Instructions [facility] [place] [facility] - [address] , [address] [place] [address] Specialty Diagnoses / Procedures Referred By Contac t Referred To Contact IP Unit Diagnoses Heel ulceration, left, with unspecified severity (HCC) Henry Hidalgo PA [address] [place] [address] [facility] [address] [place] [address] Referral ID Status Reason Start Date Expiration Date V isits Requested Visits Authorized [id number] Open Specialty Services Required 12/22/2021 12/22/2022 1 1 Scheduling Instructions [facility] - [facility] [address] [place] [address] Comments Please use the parking lot located on [address] or [employer] services. There are handicap parking spots located in a small lot beside the wound care entrance off of [facility]. Please be advised there is a small incline from those handicap spots to our main door. Bring photo ID and insurance card to photocopy. Wear loose fitting clothing (to easily access wound). Bring list of medications (or can be sent by office). Check in at Registration for your first visit. Please call us directly with any questions [phone]. We look forward to helping you heal. Specialty Diagnoses / Procedures Referred By Aki kumari Referred To Contact Radiology Diagnoses Left flank pain Calculus of ureter Procedures CT abdomen pelvis wo IV contrast Rebecca Buck MD [address] [place] [address] Referral ID Status Reason Start Date Expiration Date V isits Requested Visits Authorized [id number] Pending Review 08/13/2023 08/12/2024 1 1 Referral ID Status Reason Start Date Expiration Date Visits Re quested Visits Authorized [id number] Closed 08/17/2023 09/16/2023 1 1 Additional Source Comments Source Comments (unrecognize d section and content) In the event this informatio n is protected by the Federal Confidentiality of Alcohol and Drug Abuse Patient Records regulations: The Federal rules restrict any use of the information to criminally investigate or prosecute any alcohol or drug abuse patient.[facility] the event this information is protected by the Federal Confidentiality of Alcohol and Drug Abuse Patient Records regulations: The Federal rules restrict any use of the information to criminally investigate or prosecute any alcohol or drug abuse patient.[facility] (unrecognized sect ion and content) No Status Records FoundNo Status Records FoundNo Status Records FoundNo Status Records FoundNo Status Records FoundNo Status Records FoundNo Status Records FoundNo Status Records FoundNo Status Records FoundNo Status Records Found INFORMATION SOURCE (unrecogn ized section and content) DATE CREATED AUTHOR 05/20/2021 [facility] DATE CREATED AUTHOR AUTHOR'S ORGANIZ ATION 06/07/2021 [facility] DATE CREATED AUTHOR AUTHOR'S ORGANIZ ATION 08/02/2021 [facility] DATE CREATED AUTHOR AUTHOR'S ORGANIZ ATION 12/09/2021 [facility] DATE CREATED AUTHOR AUTHOR'S ORGANIZ ATION 12/29/2021 [facility] DATE CREATED AUTHOR AUTHOR'S ORGANIZ ATION 02/04/2022 [facility] DATE CREATED AUTHOR AUTHOR'S ORGANIZ ATION 03/03/2022 [facility] DATE CREATED AUTHOR AUTHOR'S ORGANIZ ATION 09/15/2023 [facility] DATE CREATED AUTHOR AUTHOR'S ORGANIZ ATION 02/25/2025 [facility] Reason for Visit (unrecogniz ed section and content) Reason Comments Missed Appointment Reason Comments Leg Swelling Blood clots Reason Comments Altered Mental Status Pt presents to ED via [facility] for complaint listed. Pt is from [facility]. Pt's LKW was 1000 hours today. Per EMS, pt had a - [place]. Pt denies CP, SOB, and N/V. Pt seems slow to respond, slightly confused at this time. Reason Comments Osteomyelitis Patient from [facility], facility did xrays on left lower [...] Buck MD [address] [place] [address] Referral ID Status Reason Start Date Expiration Date Visits Re quested Visits Authorized [id number] Closed 08/17/2023 09/16/2023 1 1 Reason Comments [...] Active Start: April 14, 2024 Dr. Kvng NOVKA MD Attending Provider Active Start: April 14, [...] Team Status: Inactive Member Role Status Dates Carlso NOVAK Attending Provider, Referring Provi lupillo Active Team Status: Active Member Role Status Dates Carlos NOVAK Attending Provider Active Marketing Analytics Manager Relationship Specialty Start Date End Date Mateus Burris [address] [place] [address] PCP - General Family Practice 11/12/19 Marketing Analytics Manager Relationship Specialty [place] [address] [place] [address] PCP - General Family Medicine 09/09/20 Marketing Analytics Manager Relationship Specialty [place] [address] [place] [address] PCP - General Family Medicine 09/09/20 Marketing Analytics Manager Relationship Specialty [place] [address] [place] [address] PCP - General Family Medicine 09/09/20 Marketing Analytics Manager Relationship Specialty Start Date End Date Carlos Cavazos MD [address] [facility] [address] [place] [address] PCP - General Internal Medicine 02/20/22 Team Status: Inactive Member Role Status Dates Carlos Cavazos Attending Provider, Referring Provider Active Team Status: Inactive Member Role Status Dates Carlos Cavazos Attending Provider Active Team Status: Active Member Role Status Dates Carlos Cvaazos Attending Provider Active Team Status: Active Member Role Status Dates Carlos NOVAK Attending Provider, Referring Provi lupillo Active Team Status: Active Member Role Status Dates Cliff NOVAK Attending Provider Active Team Status: Inactive Member Role Status Dates Cliff NOVAK Attending Provider Active Team Status: Inactive Member Role Status Dates Carlos NOVAK Attending Provider Active Dr. Monika Staley MD Primary Care Provider Active Marketing Analytics Manager Relationship Specialty Start Date End Date Carlos Cavazos [address] [place] [address] [address] [place] [phone] PCP - General 12/21/21 Rebecca Buck MD [address] [place] [address] [address] [place] [address] Surgeon Urology 06/25/23 Team Status: Inactive Member [...] OLS Attending Provider, Referring Provi lupillo Active Marketing Analytics Manager Relationship Specialty Start Date End Date Carlos Cavazos [address] [place] [phone] PCP - General 12/21/21 Rebecca Buck MD [address] [address] Surgeon Urology 06/25/23 Marketing Analytics Manager Relationship Specialty Start Date End Date Carlos Cavazos [address] [place] [phone] PCP - General 12/21/21 Rebecca Buck MD [address] [address] Surgeon Urology 06/25/23 Marketing Analytics Manager Relationship Specialty Start Date End Date Carlos Cavazos [address] [place] [phone] PCP - General 12/21/21 Rebecca Buck MD [address] [address] Surgeon Urology 06/25/23 Marketing Analytics Manager Relationship Specialty Start Date End Date Carlos Cavazos [address] [place] [phone] PCP - General 12/21/21 Rebecca Buck MD [address] [address] Surgeon Urology 06/25/23 Marketing Analytics Manager Relationship Specialty Start Date End Date Carlos Cavazos [address] [place] [phone] PCP - General 12/21/21 Rebecca Buck MD [address] [address] Surgeon Urology 06/25/23 Marketing Analytics Manager Relationship Specialty Start Date End Date Maribelkameron Carlos [address] [place] [phone] PCP - General 12/21/21 Rebecca Buck MD [address] [address] Surgeon Urology 06/25/23 Team Status: Inactive Member Role Status Dates Dr. Monika Staley MD Primary Care Provider Active Start: March 13, 2024 End: March 13, 2024 [facility] Attending Provider Active Start: March 13, 2024 [...] March 17, 2024 End: March 17, 2024 [facility] Attending Provider Active Start: March 17, 2024 End: March 17, 2024 Team Status: Inactive Member Role Status Dates Dr. Monika Staley MD Primary Care Provider Active Start: March 18, 2024 End: March 18, 2024 [facility] Attending Provider Active Start: March 18, 2024 [...] March 20, 2024 End: March 20, 2024 [facility] Attending Provider Active Start: March 20, 2024 [...] March 27, 2024 End: March 27, 2024 [facility] Attending Provider Active Start: March 27, 2024 [...] Care Provider Active Start: July 07, 2024 [facility] Attending Provider Active Start: July 07, 2024 [...] Provider Active Start: July 07, 2024 Karon NOVKA MD Referring Provider Active Start: July 07, [...] Activ e Start: October 23, 2024 Karon NOVAK MD Attending physician Active Start: October 23, [...] Hoff RN)192 (Given - Provider: Lisa Ashby, AYUSH) 1024 (Given - Provider: Fabi Subramanian RN)154 (Given - Provider: Cliff Isidro RN)2100 [...] 1025 (Given - Provider: Fabi Subramanian, AYUSH) sodium chloride flush 0.9 % injection 5-40 [...] Midline or Central Line = 20 mL/lumen 09 (Given - Provider: Rosanne Hoff RN)2034 (Given - Provider: Katlin Julio RN) 08 (Given - Provider: Rosanne Hoff RN)1926 (Given - Provider: Lisa Ashby, AYUSH) 1027 [...] mg, Oral, ONCE Warfarin, 1 dose, On [facility] 10/29/21 at 1800, Indication of Use: [...] First dose on Sun10/31/21 at 2015, Until Discontinued
Flush line with 3-5 mL
[...] BE BASED ON THE PRIMARY CLINICAL RECORDS. [facility]. provides no warranty or guarantee of the accuracy or completeness of information in this document.
[2025-02-26 09:41] LABS: Prothrombin Time (Protime)PT. 24.5 SECONDS (11.7-14.9)
== END ==
LOC: OLS.SANC 05:00
PROVIDERS: PCP General Practice
DX: Z79.01 Long term (current) use of 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 (principal)
CPT/HCPCS: 36415; 85610

== ENCOUNTER → 2025-03-02 05:00 | Outpatient (REF) | payer MEDICAID, SELFPAY ==
[2025-03-02 09:00] LABS: Prothrombin Time (Protime)PT. 25.3 SECONDS (11.7-14.9)
== END ==
LOC: OLS.SANC 05:00
PROVIDERS: PCP General Practice; Visit Provider Internal Medicine
DX: E11.9 Type 2 diabetes mellitus without complications (principal)
CPT/HCPCS: 36415; 85610

== ENCOUNTER → 2025-03-05 | Outpatient (REF) | payer MEDICARE, MEDICAID, SELFPAY ==
[2025-03-05 09:19] LABS: Prothrombin Time (Protime)PT. 21.2 SECONDS (11.7-14.9)
== END ==
LOC: OLS.SANC 05:00
PROVIDERS: PCP General Practice
DX: Z79.01 Long term (current) use of 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 (principal)
CPT/HCPCS: 36415; 85610

== ENCOUNTER → 2025-03-09 04:00 | Outpatient (REF) | payer MEDICARE, MEDICAID, SELFPAY ==
--- OUTSIDE RECORDS SUMMARY | 2025-03-09 03:37 | XMS RPT_ITS | CCD ---
Author Organization [facility] Care Team Providers Care Business Office Representative Name Role Phone Mateus Burris Primary Care [...] VALLADARES, Dr. Monika Horner Primary Care Provider [facility] Attending Provider [phone] Carlos Nelson Attending Provider Jonh Pascual MD, [...] Attending Provider Unava ilCarlos Anglin Attending Provider Jonh Cardoza MD, Dr. Monika Horner Primary Care Provider Andressa VALLADARES, Dr. Calderon Attending Provider Jany Staley MD, Dr. Monika Horner Primary Care Provider Carlos Nelson Attending Provider Jonh Cardoza MD, Dr. Monika Horner Primary Care Physician Karon Corrales MD Attending Physician Unav Carlos Fontaine Attending Physician Camelia Corrales MD, Karon Referring Provider Unava evan Staley MD, Dr. Monika Horner Primary Care Physician Carlos Nelson Attending Physician Unavailvanessa Corrales MD, Karon Attending Physician Unav mike Corrales MD, Karon Referring Provider Unava ilMonika Barrow Primary Care Unavailable Karon Shah Attending Unavail able Carlos Nelson Attending Unavailable Monika Staley Primary Care Unavailable Karon Shah Attending Unavail able Luís, Monika Horner Primary Care Unavailable Karon Shah Attending Unavail able Luís, Monika Horner Primary Care Unavailable [place] OLS, Mahaveer Referring Unavail able Luís, Shiela Primary Care Unavailable [place] OLS, Mahaveer Attending Unavail able Katsaros OLSCarlos Attending Unavailable Luís, Shiela Primary [...] Luís, Shiela Primary Care Unavailable [facility] [place] Attending Unavai lable Luís, Shiela Primary Care [...] OLS, Mahaveer Attending Unavail able Katsaros OLS, Carlos Attending [...] Attending Unavailable Luís, Shiela Primary Care Unavailable [facility] [place] Attending Unadavidi lable Luís, Shiela Primary Care Unavailable Katsaros OLS, Carlos Attending Unavailable Luís, Shiela Primary Care Unavailable Luís, Shiela Primary Care Unavailable [place] OLS, Carlaaveer Attending Unavail able Katsaros OLS, Carlos Attending Unavailable Luís, Shiela Primary Care Unavailable Luís, Shiela Primary Care Unavailable [place] OLS, Carlaaveer Attending Unavail able [place] OLS, Melindaer Referring Unavail able Luís, Shiela Primary Care Unavailable [place] OLS, Carlaaveer Attending Unavail able Luís, Shiela Primary Care Unavailable [place] OLS, Carlaaveer Attending Unavail able [place] OLS, Mahaveer Attending [...] Luís, Shiela Primary Care Unavailable [facility] [place] Attending Unavai lable Luís, Shiela Primary Care [...] Unavailable Katsaros Carlos NOVAK Attending Unavailable Crisostomo OLS, Babbaljeet Attending Unavailable [...] Luís, Shiela Primary Care Unavailable [facility] [place] Attending Unavai lable Luís, Shiela Primary Care Unavailable Katsaros Carlos NOVAK Attending Unavailable Luís, Shiela Primary Care Unavailable [facility] [place] Attending Unavai lable Luís, Shiela Primary Care [...] Care Unavailable [place] OLS, Mahaveer Attending Unavail [facility], [facility] Primary Care Unavailable Luís, [facility] Primary Care Unavailable Karon Shah Attending [facility], [place] Attending Tricia Staley, [facility] Primary Care Unavailable Carlos Nelson Attending Unavailable Luís, [facility] Primary Care Unavailable Karon Shah Attending [facility], [facility] Unavailable Allergies Allergy Classification Reported Allergen(s) Allergy Type Date of Onset Reaction(s) Facility (13 sources) [facility]: (15 sources) Alcohol Propensity to adverse reactions to drug 3 Rash, Hives, Other: See Comments, Other [facility] Work Phone: (1 source) Latex Drug Allergy 0 Rash [facility] (8 sources) Cortisone Drug Allergy 2 [facility] (7 sources) Latex Allergy to substance 0 Rash [facility] Medications Current Medications Medication Drug Class(es) Dates Sig (Normalized) Sig (Original) Acetaminophen (10 sources) Start: 10-21-2021 acetaminophen (TYLENOL) tablet 650 mg Start: 09-14-2021 acetaminophen (TYLENOL) 325 MG tablet 650 mg every 6 hours as needed 0 09/14/2021 Active take 2 tablets by [facility] every eight hours acetaminophen (TYLENOL) [...] 11-01-2021 take [address] [facility] once daily tamsulosin (FLOMAX) [...] tablet 3 10/29/2021 Active Start: 10-23-2021 End: 06-26-2022 warfarin (COUMADIN) tablet 7 .5 mg Start: [...] above: Take [address] [facility] three times daily. Complete Multi-Vitamin CHEW [...] Units subcutaneously with meals and at bedtime. Armenian Panax Ginseng 100 MG CAPS (8 sources) Armenian Panax Ginseng 100 MG CAPS Quantity: 0 Refills: 0 Ordered: 06-Nov-2019 DO Active Armenian Panax Ginseng 100 MG Oral Capsule (4 sources) Armenian Panax Ginseng 100 MG Oral Capsule Refills: 0 Active Armenian Panax Gin mayuri 100 MG Oral Capsule Refills: 0 DO Active Armenian Panax Ginseng 100 MG Oral Capsule (2 sources) Armenian Panax Gin mayuri 100 MG Oral Capsule [...] once daily. Pentoxifylline (1 source) Blood Viscosity Inspector Fibrous Wallboard PENTOXIFYLLINE ORAL Take by mouth. 0 Active Comment on above: Take by mouth. petrolatum 0.41 mg/mg topical ointment (1 source) Start : 08-20 white petrolatum (AQUAPHOR) 41 % topical ointment Apply to affected area once daily. 0 08/20/2021 Active Comment on above: Apply to affected ar ea once daily. 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 Comment on above: Order Comment: 411.2 Performed By: #### L 300.3900 ####[facility] [address] [place], [place], [phone] PT Coag (PPP) [Time] 21.2 s High 11.7-14.9 [facility] Comment on above: Order Comment: 411.2 Performed By: #### L 300.3900 ####[facility] [address] [place], [place], [phone] International normalized rat io (INR) calculationOrdered By: Carlos Cavazos on 03-02-2025 INR Coag (Bld) [Relative time] 2.2 {INR} [facility] Prothrombin Time w/INRon INR Coag (PPP) [Relative time] 2.2 {INR} Normal [facility] Comment on above: Order Comment: 411-2 Performed By: #### L 300.3900 ####[facility] [address] [place], [place], [phone] Prothrombin timeOrdered By: Carlos Cavazos on 03-02-2025 PT Coag (PPP) [Time] 25.3 s High 11.7-14.9 [facility] Comment on above: Order Comment: 411-2 Performed By: #### L 300.3900 ####[facility] [address] [place], [place], [phone](741) International normalized rat io (INR) calculationOrdered By: Karon Corrales on 02-26-2025 INR Coag (Bld) [Relative time] 2.2 {INR} [facility] Prothrombin Time w/INRon INR Coag (PPP) [Relative time] 2.2 {INR} Normal [facility] Comment on above: Order Comment: 411.2 Performed By: #### L 300.3900 ####[facility] [address] [place], [place], [phone] PT Coag (PPP) [Time] 24.5 s High 11.7-14.9 [facility] Comment on above: Order Comment: 411.2 Performed By: #### L 300.3900 ####[facility] [address] [place], [place], [phone](893) Prothrombin timeOrdered By: Karon Corrales on 02-26-2025 PT Coag (PPP) [Time] 24.5 s High 11.7-14.9 [facility] International normalized rat io (INR) calculationOrdered By: Karon Corrales on 02-23-2025 INR Coag (Bld) [Relative time] 2.0 {INR} [facility] Prothrombin Time w/INRon INR Coag (PPP) [Relative time] 2.0 {INR} Normal [facility] Comment on above: Order Comment: 411.2 Performed By: #### L 300.3900 ####[facility] [address] [place], [address] PT Coag (PPP) [Time] 23.5 s High 11.7-14.9 [facility] Comment on above: Order Comment: 411.2 Performed By: #### L 300.3900 ####[facility] [address] [place], [place], [phone](600) Prothrombin timeOrdered By: Karon Corrales on 02-23-2025 PT Coag (PPP) [Time] 23.5 s High 11.7-14.9 [facility] International normalized rat io (INR) calculationOrdered By: Karon Corrales on 02-19-2025 INR Coag (Bld) [Relative time] 1.9 {INR} [facility] Prothrombin Time w/INRon INR Coag (PPP) [Relative time] 1.9 {INR} Normal [facility] Comment on above: Order Comment: 411.2 Performed By: #### L 300.3900 ####[facility] [address] [place], [address] PT Coag (PPP) [Time] 21.8 s High 11.7-14.9 [facility] Comment on above: Order Comment: 411.2 Performed By: #### L 300.3900 ####[facility] [address] [place], [address] Prothrombin timeOrdered By: Karon Corrales on 02-19-2025 PT Coag (PPP) [Time] 21.8 s High 11.7-14.9 [facility] International normalized rat io (INR) calculationOrdered By: Karon Corrales on 02-16-2025 INR Coag (Bld) [Relative time] 1.5 {INR} [facility] Prothrombin Time w/INRon INR Coag (PPP) [Relative time] 1.5 {INR} Normal [facility] Comment on above: Order Comment: 411.2 Performed By: #### L 300.3900 ####[facility] [address] [place], [address] PT Coag (PPP) [Time] 18.6 s High 11.7-14.9 [facility] Comment on above: Order Comment: 411.2 Performed By: #### L 300.3900 ####[facility] [address] [facility] [phone] Prothrombin timeOrdered By: Karon Corrales on 02-16-2025 PT Coag (PPP) [Time] 18.6 s High 11.7-14.9 [facility] International normalized rat io (INR) calculationOrdered By: Karon Corrales on 02-12-2025 INR Coag (Bld) [Relative time] 2.5 {INR} [facility] Prothrombin Time w/INRon INR Coag (PPP) [Relative time] 2.5 {INR} Normal [facility] Comment on above: Order Comment: 411.2 Performed By: #### L 300.3900 ####[facility] [address] [place], [place], [phone] PT Coag (PPP) [Time] 27.5 s High 11.7-14.9 [facility] Comment on above: Order Comment: 411.2 Performed By: #### L 300.3900 ####[facility] [address] [place], [place], [phone] Prothrombin timeOrdered By: Karon Corrales on 02-12-2025 PT Coag (PPP) [Time] 27.5 s High 11.7-14.9 [facility] International normalized rat io (INR) calculationOrdered By: Carlos Cavazos on 02-09-2025 INR Coag (Bld) [Relative time] 2.5 {INR} [facility] Prothrombin Time w/INRon INR Coag (PPP) [Relative time] 2.5 {INR} Normal [facility] Comment on above: Order Comment: 411-2 Performed By: #### L 300.3900 ####[facility] [address] [place], [place], [phone] INR Normal [facility] Comment on above: Order Comment: 411.2 Result Comment: MISS ING TUBE Performed By: #### L 300.3900 ####[facility] [address] [place], [place], [phone] PROTIME Normal 11.7-14.[address] [facility] Comment on above: Order Comment: 411.2 Result Comment: MISS ING TUBE Performed By: #### L 300.3900 ####[facility] [address] [place], [place], [phone] Prothrombin timeOrdered By: Carlos Cavazos on 02-09-2025 PT Coag (PPP) [Time] 27.2 s High 11.7-14.9 [facility] Comment on above: Order Comment: 411-2 Performed By: #### L 300.3900 ####[facility] [address] [place], [place], [phone] International normalized rat io (INR) calculationOrdered By: Karon Corrales on 02-05-2025 INR Coag (Bld) [Relative time] 2.5 {INR} [facility] Prothrombin Time w/INRon INR Coag (PPP) [Relative time] 2.5 {INR} Normal [facility] Comment on above: Order Comment: 411.2 Performed By: #### L 300.3900 ####[facility] [address] [place], [address] PT Coag (PPP) [Time] 27.6 s High 11.7-14.9 [facility] Comment on above: Order Comment: 411.2 Performed By: #### L 300.3900 ####[facility] [address] [place], [address] Prothrombin timeOrdered By: Kaorn Corrales on 02-05-2025 PT Coag (PPP) [Time] 27.6 s High 11.7-14.9 [facility] International normalized rat io (INR) calculationOrdered By: Karon Corrales on 02-02-2025 INR Coag (Bld) [Relative time] 2.4 {INR} [facility] Prothrombin Time w/INRon INR Coag (PPP) [Relative time] 2.4 {INR} Normal [facility] Comment on above: Order Comment: 411.2 Performed By: #### L 300.3900 ####[facility] [address] [place], [address] PT Coag (PPP) [Time] 26.8 s High 11.7-14.9 [facility] Comment on above: Order Comment: 411.2 Performed By: #### L 300.3900 ####[facility] [address] [place], [address] Prothrombin timeOrdered By: Karon Corrales on 02-02-2025 PT Coag (PPP) [Time] 26.8 s High 11.7-14.9 [facility] International normalized rat io (INR) calculationOrdered By: Karon Corrales on 01-29-2025 INR Coag (Bld) [Relative time] 2.7 {INR} [facility] Prothrombin Time w/INRon INR Coag (PPP) [Relative time] 2.7 {INR} Normal [facility] Comment on above: Performed By: #### L 300.3900 ####[facility] [address] [place], [address] PT Coag (PPP) [Time] 29.1 s High 11.7-14.9 [facility] Comment on above: Performed By: #### L 300.3900 ####[facility] [address] [place], [address] Prothrombin timeOrdered By: Karon Corrales on 01-29-2025 PT Coag (PPP) [Time] 29.1 s High 11.7-14.9 [facility] International normalized rat io (INR) calculationOrdered By: Karon Corrales on 01-26-2025 INR Coag (Bld) [Relative time] 2.0 {INR} [facility] Prothrombin Time w/INRon INR Coag (PPP) [Relative time] 2.0 {INR} Normal [facility] Comment on above: Order Comment: 411.2 Performed By: #### L 300.3900 ####[facility] [address] [place], [place], [phone] PT Coag (PPP) [Time] 23.1 s High 11.7-14.9 [facility] Comment on above: Order Comment: 411.2 Performed By: #### L 300.3900 ####[facility] [address] [place], [place], [phone](425) Prothrombin timeOrdered By: Karon Corrales on 01-26-2025 PT Coag (PPP) [Time] 23.1 s High 11.7-14.9 [facility] International normalized rat io (INR) calculationOrdered By: Karon Corrales on 01-22-2025 INR Coag (Bld) [Relative time] 2.4 {INR} [facility] Prothrombin Time w/INRon INR Coag (PPP) [Relative time] 2.4 {INR} Normal [facility] Comment on above: Order Comment: 411.2 Performed By: #### L 300.3900 ####[facility] [address] [place], [place], [phone] PT Coag (PPP) [Time] 26.6 s High 11.7-14.9 [facility] Comment on above: Order Comment: 411.2 Performed By: #### L 300.3900 ####[facility] [address] [place], [place], [phone] Prothrombin timeOrdered By: Karon Corrales on 01-22-2025 PT Coag (PPP) [Time] 26.6 s High 11.7-14.9 [facility] International normalized rat io (INR) calculationOrdered By: Carlos Cavazos on 01-19-2025 INR Coag (Bld) [Relative time] 2.7 {INR} [facility] Prothrombin Time w/INRon INR Coag (PPP) [Relative time] 2.7 {INR} Normal [facility] Comment on above: Order Comment: 411-2 Performed By: #### L 300.3900 ####[facility] [address] [place], [address] PT Coag (PPP) [Time] 29.7 s High 11.7-14.9 [facility] Comment on above: Order Comment: 411-2 Performed By: #### L 300.3900 ####[facility] [address] [place], [address] Prothrombin timeOrdered By: Carlos Cavazos on 01-19-2025 PT Coag (PPP) [Time] 29.7 s High 11.7-14.9 [facility] International normalized rat io (INR) calculationOrdered By: Karon Corrales on 01-15-2025 INR Coag (Bld) [Relative time] 2.4 {INR} [facility] Prothrombin Time w/INRon INR Coag (PPP) [Relative time] 2.4 {INR} Normal [facility] Comment on above: Order Comment: 411.1 Performed By: #### L 300.3900 ####[facility] [address] [place], [address] PT Coag (PPP) [Time] 26.6 s High 11.7-14.9 [facility] Comment on above: Order Comment: 411.1 Performed By: #### L 300.3900 ####[facility] [address] [place], [address] Prothrombin timeOrdered By: Karon Corrales on 01-15-2025 PT Coag (PPP) [Time] 26.6 s High 11.7-14.9 [facility] KEPPRA (LEVETIRACETAM)on KEPPRA 30.1 ug/mL Normal 10.0-40.[address] [facility] Comment on above: Order Comment: 411.1 Result Comment: Perf ormed at: [employer] [facility] [address] [id number] Director: Alpesh Vázquez MD, Phone: [phone] Performed By: #### L 3310.0000, L300.3900 ####[facility] [address] [place], [place], [address] International normalized rat io (INR) calculationOrdered By: Karon Corrales on 01-12-2025 INR Coag (Bld) [Relative time] 2.3 {INR} [facility] LevetiracetamOrdered By: Carla Corrales on 01-12-2025 levETIRAcetam [Mass/Vol] 30.1 ug/mL 10.0-40.[address] [facility] Comment on above: Performed at: [employer] [facility] [address] [id number] Director: Alpesh Vázquez MD, Phone: [phone] Prothrombin Time w/INRon INR Coag (PPP) [Relative time] 2.3 {INR} Normal [facility] Comment on above: Order Comment: 411.1 Performed By: #### L 3310.0000, L300.3900 ####[facility] [address] [place], [place], [phone] PT Coag (PPP) [Time] 26.1 s High 11.7-14.9 [facility] Comment on above: Order Comment: 411.1 Performed By: #### L 3310.0000, L300.3900 ####[facility] [address] [place], [place], [phone] Prothrombin timeOrdered By: Karon Corrales on 01-12-2025 PT Coag (PPP) [Time] 26.1 s High 11.7-14.9 [facility] KEPPRA (LEVETIRACETAM)on KEPPRA 27.6 ug/mL Normal 10.0-40.[address] [facility] Comment on above: Order Comment: 411.1 Result Comment: Perf ormed at: [facility] [address] [place], [place] [id number] Director: Alpesh Vázquez MD, Phone: [phone] Performed By: #### L 3310.0000, L300.3900 ####[facility] [address] [place], [place], [phone] International normalized rat io (INR) calculationOrdered By: Karon Corrales on 01-08-2025 INR Coag (Bld) [Relative time] 2.2 {INR} [facility] Prothrombin Time w/INRon INR Coag (PPP) [Relative time] 2.2 {INR} Normal [facility] Comment on above: Order Comment: 411.1 Performed By: #### L 300.3900 ####[facility] [address] [place], [place], [phone] PT Coag (PPP) [Time] 24.5 s High 11.7-14.9 [facility] Comment on above: Order Comment: 411.1 Performed By: #### L 300.3050 ####[facility] [address] [place], [place], [phone] Prothrombin timeOrdered By: Karon Corrales on 01-08-2025 PT Coag (PPP) [Time] 24.5 s High 11.7-14.9 [facility] International normalized rat io (INR) calculationOrdered By: Karon Corrales on 01-06-2025 INR Coag (Bld) [Relative time] 3.2 {INR} [facility] LevetiracetamOrdered By: Carla Corrales on 01-06-2025 levETIRAcetam [Mass/Vol] 27.6 ug/mL 10.0-40.[address] [facility] Comment on above: Performed at: [facility] [address] [place], [place] [id number] Director: Alpesh Vázquez MD, Phone: [phone] Prothrombin Time w/INRon INR Coag (PPP) [Relative time] 3.2 {INR} Normal [facility] Comment on above: Order Comment: 411.1 Performed By: #### L 3310.0000, L300.3900 ####[facility] [address] [place], [address] PT Coag (PPP) [Time] 33.1 s High 11.7-14.9 [facility] Comment on above: Order Comment: 411.1 Performed By: #### L 3310.0000, L300.3900 ####[facility] [address] [place], [address] Prothrombin timeOrdered By: Karon Corrales on 01-06-2025 PT Coag (PPP) [Time] 33.1 s High 11.7-14.9 [facility] International normalized rat io (INR) calculationOrdered By: Karon Corrales on 01-01-2025 INR Coag (Bld) [Relative time] 2.7 {INR} [facility] Prothrombin Time w/INRon INR Coag (PPP) [Relative time] 2.7 {INR} Normal [facility] Comment on above: Order Comment: 411.1 Performed By: #### L 300.3900 ####[facility] [address] [place], [address] Prothrombin timeOrdered By: Karon Corrales on 01-01-2025 PT Coag (PPP) [Time] 29.1 s High 11.7-14.9 [facility] Comment on above: Order Comment: 411.1 Performed By: #### L 300.3900 ####[facility] [address] [place], [address] KEPPRA (LEVETIRACETAM)on KEPPRA 31.8 ug/mL Normal 10.0-40.[address] [facility] [facility] [address] [facility] Comment on above: Order Comment: 411-1 Result Comment: Perf ormed at: [facility] [address] [id number] Director: Alpesh Vázquez MD, Phone: [phone] Performed By: #### L 3310.0000, L300.3900 ####[facility] [address] [facility] [address] International normalized rat io (INR) calculationOrdered By: Carlos Cavazos on 12-29-2024 INR Coag (Bld) [Relative time] 3.3 {INR} [facility] KEPPRA (LEVETIRACETAM)on KEPPRA 33.3 ug/mL Normal 10.0-40.[address] [facility] Comment on above: Order Comment: 411.1 Result Comment: Perf ormed at: [facility] [address] [id number] Director: Alpesh Vázquez MD, Phone: [phone] Performed By: #### L 3310.0000 ####[facility] [address] [facility] [phone] LevetiracetamOrdered By: Ted Cavazos on 12-29-2024 levETIRAcetam [Mass/Vol] 31.8 ug/mL 10.0-40.[address] [facility] Comment on above: Performed at: [facility] - [address] [id number] Director: Alpesh Vázquez MD, Phone: [phone] Prothrombin Time w/INRon INR Coag (PPP) [Relative time] 3.3 {INR} Normal [facility] Comment on above: Order Comment: 411-1 Performed By: #### L 3310.0000, L300.3900 ####[facility] [address] [place], [place], [address] Prothrombin timeOrdered By: Carlos Cavazos on 12-29-2024 PT Coag (PPP) [Time] 34.0 s High 11.7-14.9 [facility] Comment on above: Order Comment: 411-1 Performed By: #### L 3310.0000, L300.3900 ####[facility] [address] [place], [place], [phone] LevetiracetamOrdered By: Carla Corrales on 12-26-2024 levETIRAcetam [Mass/Vol] 33.3 ug/mL 10.0-40.[address] [facility] Comment on above: Performed at: [address] [id number] Director: Alpesh Vázquez MD, Phone: [phone] International normalized rat io (INR) calculationOrdered By: Karon Corrales on 12-25-2024 INR Coag (Bld) [Relative time] 2.8 {INR} [facility] Prothrombin Time w/INRon INR Coag (PPP) [Relative time] 2.8 {INR} Normal [facility] Comment on above: Order Comment: 411.1 Performed By: #### L 300.3900 ####[facility] [address] [place], [place], [phone] Prothrombin timeOrdered By: Karon Corrales on 12-25-2024 PT Coag (PPP) [Time] 30.0 s High 11.7-14.9 [facility] Comment on above: Order Comment: 411.1 Performed By: #### L 300.3900 ####[facility] [address] [place], [place], [phone] Anion gap in Serum or Plasma Ordered By: Carlos Cavazos on 12-24-2024 Anion gap [Moles/Vol] 13 mmol/L 5-15 [facility] BUN/creatinine ratioOrdered By: Carlos Cavazos on 12-24-2024 Urea nitrogen/Creatinine [Mass ratio] 19.2 mg/mg - [facility] Basic Metabolic Profile (BMP )on 12-24-2024 BUN/CRE 19.2 RATIO Normal - [facility] Comment on above: Order Comment: 411-1 Performed By: #### L 500.2500, L100.0500 ####[facility] [address] [place], [address] Calcium [Mass/Vol] 8.8 mg/dL Normal 7.6-11.0 [facility] Comment on above: Order Comment: 411-1 Performed By: #### L 500.2500, L100.0500 ####[facility] [address] [place], [address] Chloride [Moles/Vol] 103 mmol/L Normal 98-108 [facility] Comment on above: Order Comment: 411-1 Performed By: #### L 500.2500, L100.0500 ####[facility] [address] [place], [address] CO2 [Moles/Vol] 23.7 mmol/L Normal 21.0-32.[address] [facility] Comment on above: Order Comment: 411-1 Performed By: #### L 500.2500, L100.0500 ####[facility] [address] [place], [address] Creatinine [Mass/Vol] 0.82 mg/dL Normal 0.70-1.20 [facility] Comment on above: Order Comment: 411-1 Performed By: #### L 500.2500, L100.0500 ####[facility] [address] [place], [address] GAP 13 Normal 5-[address] [facility] Comment on above: Order Comment: 411-1 Performed By: #### L 500.2500, L100.0500 ####[facility] [address] [place], [address] GFR/1.73 sq M.predicted among non-blacks MDRD (S/P/Bld) [Vol rate/Area] 93 mL/min/{1.73_m2} Normal >[address] [facility] Comment on above: Order Comment: 411-1 Result Comment: mL/m in/1.73m2 CKD-EPI Creatinine Equation (2020) Performed By: #### L 500.2500, L100.0500 ####[facility] [address] [place], [address] Glucose [Mass/Vol] 88 mg/dL Normal 70-99 [facility] Comment on above: Order Comment: 411-1 Performed By: #### L 500.2500, L100.0500 ####[facility] [address] [place], [address] Potassium [Moles/Vol] 4.2 mmol/L Normal 3.3-5.1 [facility] Comment on above: Order Comment: 411-1 Performed By: #### L 500.2500, L100.0500 ####[facility] [address] [place], [address] Sodium [Moles/Vol] 139 mmol/L Normal 133-145 [facility] Comment on above: Order Comment: 411-1 Performed By: #### L 500.2500, L100.0500 ####[facility] [address] [place], [address] Urea nitrogen [Mass/Vol] 16 mg/dL Normal 4-[address] [facility] Comment on above: Order Comment: 411-1 Performed By: #### L 500.2500, L100.0500 ####[facility] [address] [place], [address] CBC-Complete Blood Cnt No Di ffon 12-24-2024 Erythrocyte distribution width (RBC) [Ratio] 15.4 % High 11.6-14.[address] [facility] Comment on above: Order Comment: 411-1 Performed By: #### L 500.2500, L100.0500 ####[facility] [address] [place], [address] Hematocrit (Bld) [Volume fraction] 39.8 % Low 40-[address] [facility] Comment on above: Order Comment: 411-1 Performed By: #### L 500.2500, L100.0500 ####[facility] [address] [place], [address] Hemoglobin (Bld) [Mass/Vol] 12.4 g/dL Low 13.0-16.[address] [facility] Comment on above: Order Comment: 411-1 Performed By: #### L 500.2500, L100.0500 ####[facility] [address] [place], [address] MCH (RBC) [Entitic mass] 26.6 pg Low 27.0-32.[address] [facility] Comment on above: Order Comment: 411-1 Performed By: #### L 500.2500, L100.0500 ####[facility] [address] [place], [address] MCHC (RBC) [Mass/Vol] 31.2 g/dL Low 32-36 [facility] Comment on above: Order Comment: 411-1 Performed By: #### L 500.2500, L100.0500 ####[facility] [address] [place], [address] MCV (RBC) [Entitic vol] 85.4 fL Normal 80-[address] [facility] Comment on above: Order Comment: 411-1 Performed By: #### L 500.2500, L100.0500 ####[facility] [address] [place], [address] Platelet mean volume (Bld) [Entitic vol] 10.4 fL Normal 6.2-12.[address] [facility] Comment on above: Order Comment: 411-1 Performed By: #### L 500.2500, L100.0500 ####[facility] [address] [place], [address] Platelets (Bld) [#/Vol] 290 10*3/uL Normal 150-[address] [facility] Comment on above: Order Comment: 411-1 Performed By: #### L 500.2500, L100.0500 ####[facility] [address] [place], [address] RBC (Bld) [#/Vol] 4.66 10*6/uL Normal 4.6-6.2 [facility] Comment on above: Order Comment: 411-1 Performed By: #### L 500.2500, L100.0500 ####[facility] [address] [place], [address] RDW SD 48.1 fl High 35.1-43.[address] [facility] Comment on above: Order Comment: 411-1 Performed By: #### L 500.2500, L100.0500 ####[facility] [address] [place], [address] WBC (Bld) [#/Vol] 16.6 10*3/uL High 4.4-11.0 [facility] Comment on above: Order Comment: 411-1 Performed By: #### L 500.2500, L100.0500 ####[facility] [address] [place], [address] Carbon dioxide, total [Moles /volume] in Central venous bloodOrdered By: Carlos Cavazos on 12-24-2024 CO2 [Moles/Vol] 23.7 mmol/L 21.0-32.[address] [facility] Chloride assayOrdered By: Sharif Crouch on 12-24-2024 Chloride [Moles/Vol] 103 mmol/L 98-108 [facility] Erythrocyte distribution wid th ratioOrdered By: Carlos Cavazos on 12-24-2024 Erythrocyte distribution width (RBC) [Ratio] 15.4 % High 11.6-14.[address] [facility] Erythrocyte distribution wid th standard deviationOrdered By: Carlos Cavazos on 12-24-2024 Erythrocyte distribution width (RBC) [Ratio] 48.1 fl High 35.1-43.[address] [facility] Glomerular filtration rate ( GFR) estimation/1.73 sq m using serum, plasma, or whole bOrdered By: Carlos Cavazos on 12-24-2024 GFR/1.73 sq M.predicted among non-blacks MDRD (S/P/Bld) [Vol rate/Area] 93 mL/min/{1.73_m2} >[address] [facility] Comment on above: mL/min/1.73m2 CKD-EP I Creatinine Equation (2020) Hematocrit Auto (Bld) [Volum e fraction]Ordered By: Carlos Cavazos on 12-24-2024 Hematocrit (Bld) [Volume fraction] 39.8 % Low 40-[address] [facility] Hemoglobin measurementOrdere d By: Carlos Cavazos on 12-24-2024 Hemoglobin (Bld) [Mass/Vol] 12.4 g/dL Low 13.0-16.[address] [facility] MCV (mean corpuscular volume ) determinationOrdered By: Carlos Cavazos on 12-24-2024 MCV (RBC) [Entitic vol] 85.4 fL 80-[address] [facility] Mean corpuscular hemoglobin (MCH) determinationOrdered By: Carlos Cavazos on 12-24-2024 MCH (RBC) [Entitic mass] 26.6 pg Low 27.0-32.[address] [facility] Mean corpuscular hemoglobin concentration (MCHC) determinationOrdered By: Carlos Cavazos on 12-24-2024 MCHC (RBC) [Mass/Vol] 31.2 g/dL Low 32-36 [facility] Mean platelet volume determi nationOrdered By: Carlos Cavazos on 12-24-2024 Platelet mean volume (Bld) [Entitic vol] 10.4 fL 6.2-12.[address] [facility] Platelet countOrdered By: Sharif Crouch on 12-24-2024 Platelets (Bld) [#/Vol] 290 10*3/uL 150-[address] [facility] Potassium measurement (mass/ volume)Ordered By: Carlos Cavazos on 12-24-2024 Potassium (Unsp spec) [Mass/Vol] 4.2 mmol/L 3.3-5.[address] [facility] RBC Auto (Bld) [#/Vol]Ordere d By: Carlos Cavazos on 12-24-2024 RBC (Bld) [#/Vol] 4.66 10*6/uL 4.6-6.2 [facility] Serum creatinine measurement (mass/volume)Ordered By: Carlos Cavazos on 12-24-2024 Creatinine [Mass/Vol] 0.82 mg/dL 0.70-1.20 [facility] Serum glucose measurement (m ass/volume)Ordered By: Carlos Cavazos on 12-24-2024 Glucose [Mass/Vol] 88 mg/dL 70-99 [facility] Serum or plasma calcium oral urement (mass/volume)Ordered By: Carlos Cavazos on 12-24-2024 Calcium [Mass/Vol] 8.8 mg/dL 7.6-11.0 [facility] Serum or plasma urea nitroge n measurement (mass/volume)Ordered By: Carlos Cavazos on 12-24-2024 Urea nitrogen [Mass/Vol] 16 mg/dL 4-[address] [facility] Sodium levelOrdered By: Moe Cavazos on 12-24-2024 Sodium [Moles/Vol] 139 mmol/L 133-145 [facility] White blood cell (WBC) count Ordered By: Carlos Cavazos on 12-24-2024 WBC (Bld) [#/Vol] 16.6 10*3/uL High 4.4-11.0 [facility] International normalized rat io (INR) calculationOrdered By: Karon Corrales on 12-22-2024 INR Coag (Bld) [Relative time] 2.6 {INR} [facility] Prothrombin Time w/INRon INR Coag (PPP) [Relative time] 2.6 {INR} Normal [facility] Comment on above: Order Comment: 411.1 Performed By: #### L 237.1759 ####[facility] [address] [place], [place], [phone] PT Coag (PPP) [Time] 28.8 s High 11.7-14.9 [facility] Comment on above: Order Comment: 411.1 Performed By: #### L 300.3900 ####[facility] [address] [place], [place], [phone]([phone] Prothrombin timeOrdered By: Karon Corrales on 12-22-2024 PT Coag (PPP) [Time] 28.8 s High 11.7-14.9 [facility] International normalized rat io (INR) calculationOrdered By: Karon Corrales on 12-18-2024 INR Coag (Bld) [Relative time] 2.4 {INR} [facility] Prothrombin Time w/INRon INR Coag (PPP) [Relative time] 2.4 {INR} Normal [facility] Comment on above: Order Comment: 411.1 Performed By: #### L 300.3900 ####[facility] [address] [place], [address] PT Coag (PPP) [Time] 26.7 s High 11.7-14.9 [facility] Comment on above: Order Comment: 411.1 Performed By: #### L 300.3900 ####[facility] [address] [facility] [address] [place], [place], [phone] Prothrombin timeOrdered By: Karon Corrales on 12-18-2024 PT Coag (PPP) [Time] 26.7 s High 11.7-14.9 [facility] International normalized rat io (INR) calculationOrdered By: Karon Corrales on 12-15-2024 INR Coag (Bld) [Relative time] 2.3 {INR} [facility] Prothrombin Time w/INRon INR Coag (PPP) [Relative time] 2.3 {INR} Normal [facility] Comment on above: Order Comment: 411.1 Performed By: #### L 300.3900 ####[facility] [address] [place], [place], [address] Prothrombin timeOrdered By: Karon Corrales on 12-15-2024 PT Coag (PPP) [Time] 25.7 s High 11.7-14.9 [facility] Comment on above: Order Comment: 411.1 Performed By: #### L 300.3900 ####[facility] [address] [place], [place], [address] International normalized rat io (INR) calculationOrdered By: Carlos Cavazos on 12-11-2024 INR Coag (Bld) [Relative time] 2.2 {INR} [facility] Prothrombin Time w/INRon INR Coag (PPP) [Relative time] 2.2 {INR} Normal [facility] Comment on above: Order Comment: 411-1 Performed By: #### L 300.3900 ####[facility] [address] [place], [place], [address] Prothrombin timeOrdered By: Carlos Cavazos on 12-11-2024 PT Coag (PPP) [Time] 24.7 s High 11.7-14.9 [facility] Comment on above: Order Comment: 411-1 Performed By: #### L 300.3900 ####[facility] [address] [place], [place], [address] International normalized rat io (INR) calculationOrdered By: Karon Corrales on 12-08-2024 INR Coag (Bld) [Relative time] 2.2 {INR} [facility] Prothrombin Time w/INRon INR Coag (PPP) [Relative time] 2.2 {INR} Normal [facility] Comment on above: Order Comment: 411.1 Performed By: #### L 300.3900 ####[facility] [address] [place], [place], [address] PT Coag (PPP) [Time] 25.0 s High 11.7-14.9 [facility] Comment on above: Order Comment: 411.1 Performed By: #### L 300.3900 ####[facility] [address] [place], [place], [address] Prothrombin timeOrdered By: Karon Corrales on 12-08-2024 PT Coag (PPP) [Time] 25.0 s High 11.7-14.9 [facility] International normalized rat io (INR) calculationOrdered By: Karon Corrales on 12-04-2024 INR Coag (Bld) [Relative time] 2.3 {INR} [facility] Prothrombin Time w/INRon INR Coag (PPP) [Relative time] 2.3 {INR} Normal [facility] Comment on above: Order Comment: 411.1 Performed By: #### L 300.3900 ####[facility] [address] [place], [place], [phone] PT Coag (PPP) [Time] 25.9 s High 11.7-14.9 [facility] Comment on above: Order Comment: 411.1 Performed By: #### L 300.3900 ####[facility] [address] [place], [place], [address] Prothrombin timeOrdered By: Karon Corrales on 12-04-2024 PT Coag (PPP) [Time] 25.9 s High 11.7-14.9 [facility] International normalized rat io (INR) calculationOrdered By: Karon Corrales on 12-02-2024 INR Coag (Bld) [Relative time] 2.5 {INR} [facility] Prothrombin Time w/INRon INR Coag (PPP) [Relative time] 2.5 {INR} Normal [facility] Comment on above: Order Comment: 411.1 Performed By: #### L 300.3900 ####[facility] [address] [place], [address](641) PT Coag (PPP) [Time] 27.3 s High 11.7-14.9 [facility] Comment on above: Order Comment: 411.1 Performed By: #### L 300.3900 ####[facility] [address] [place], [place], [phone](383) Prothrombin timeOrdered By: Karon Corrales on 12-02-2024 PT Coag (PPP) [Time] 27.3 s High 11.7-14.9 [facility] International normalized rat io (INR) calculationOrdered By: Carlos Cavazos on 12-01-2024 INR Coag (Bld) [Relative time] 2.3 {INR} [facility] Prothrombin Time w/INRon INR Coag (PPP) [Relative time] 2.3 {INR} Normal [facility] Comment on above: Order Comment: 411-1 Performed By: #### L 300.3900 ####[facility] [address], [address] PT Coag (PPP) [Time] 26.0 s High 11.7-14.9 [facility] Comment on above: Order Comment: 411-1 Performed By: #### L 300.3900 ####[facility] [address] [place], [address] Prothrombin timeOrdered By: Carlos Cavazos on 12-01-2024 PT Coag (PPP) [Time] 26.0 s High 11.7-14.9 [facility] International normalized rat io (INR) calculationOrdered By: Carlos Cavazos on 11-28-2024 INR Coag (Bld) [Relative time] 3.1 {INR} [facility] Prothrombin Time w/INRon INR Coag (PPP) [Relative time] 3.1 {INR} Normal [facility] Comment on above: Order Comment: 411-1 Performed By: #### L 300.3900 ####[facility] [address] [place], [place], [phone] PT Coag (PPP) [Time] 32.8 s High 11.7-14.9 [facility] Comment on above: Order Comment: 411-1 Performed By: #### L 300.3900 ####[facility] [address] [place], [place], [phone] Prothrombin timeOrdered By: Carlos Cavazos on 11-28-2024 PT Coag (PPP) [Time] 32.8 s High 11.7-14.9 [facility] International normalized rat io (INR) calculationOrdered By: Karon Corrales on 11-27-2024 INR Coag (Bld) [Relative time] 3.3 {INR} [facility] Prothrombin Time w/INRon INR Coag (PPP) [Relative time] 3.3 {INR} Normal [facility] Comment on above: Order Comment: 411.1 Performed By: #### L 300.3900 ####[facility] [address] [place], [place], [phone] PT Coag (PPP) [Time] 34.3 s High 11.7-14.9 [facility] Comment on above: Order Comment: 411.1 Performed By: #### L 300.3900 ####[facility] [address] [place], [place], [phone] Prothrombin timeOrdered By: Karon Corarles on 11-27-2024 PT Coag (PPP) [Time] 34.3 s High 11.7-14.9 [facility] International normalized rat io (INR) calculationOrdered By: Karon Corrales on 11-24-2024 INR Coag (Bld) [Relative time] 2.8 {INR} [facility] Prothrombin Time w/INRon INR Coag (PPP) [Relative time] 2.8 {INR} Normal [facility] Comment on above: Order Comment: 411.2 Performed By: #### L 300.3900 ####[facility] [address] [place], [place], [phone](299) PT Coag (PPP) [Time] 30.0 s High 11.7-14.9 [facility] Comment on above: Order Comment: 411.2 Performed By: #### L 300.3900 ####[facility] [address] [place], [address] Prothrombin timeOrdered By: Karon Corrales on 11-24-2024 PT Coag (PPP) [Time] 30.0 s High 11.7-14.9 [facility] International normalized rat io (INR) calculationOrdered By: Karon Corrales on 11-20-2024 INR Coag (Bld) [Relative time] 3.0 {INR} [facility] Prothrombin Time w/INRon INR Coag (PPP) [Relative time] 3.0 {INR} Normal [facility] Comment on above: Order Comment: 411.2 Performed By: #### L 300.3900 ####[facility] [address] [place], [address] PT Coag (PPP) [Time] 32.0 s High 11.7-14.9 [facility] Comment on above: Order Comment: 411.2 Performed By: #### L 300.3900 ####[facility] [address] [place], [address] Prothrombin timeOrdered By: Karon Corrales on 11-20-2024 PT Coag (PPP) [Time] 32.0 s High 11.7-14.9 [facility] International normalized rat io (INR) calculationOrdered By: Karon Corrales on 11-17-2024 INR Coag (Bld) [Relative time] 2.9 {INR} [facility] Prothrombin Time w/INRon INR Coag (PPP) [Relative time] 2.9 {INR} Normal [facility] Comment on above: Order Comment: 411.2 Performed By: #### L 300.3900 ####[facility] [address] [place], [address] PT Coag (PPP) [Time] 30.7 s High 11.7-14.9 [facility] Comment on above: Order Comment: 411.2 Performed By: #### L 300.3900 ####[facility] [address] [place], [place], [phone] Prothrombin timeOrdered By: Karon Corrales on 11-17-2024 PT Coag (PPP) [Time] 30.7 s High 11.7-14.9 [facility] International normalized rat io (INR) calculationOrdered By: Karon Corrales on 11-13-2024 INR Coag (Bld) [Relative time] 2.2 {INR} [facility] Prothrombin Time w/INRon INR Coag (PPP) [Relative time] 2.2 {INR} Normal [facility] Comment on above: Order Comment: 411.2 Performed By: #### L 300.3900 ####[facility] [address] [place], [address] PT Coag (PPP) [Time] 24.7 s High 11.7-14.9 [facility] Comment on above: Order Comment: 411.2 Performed By: #### L 300.3900 ####[facility] [address] [place], [address] Prothrombin timeOrdered By: Karon Corrales on 11-13-2024 PT Coag (PPP) [Time] 24.7 s High 11.7-14.9 [facility] International normalized rat io (INR) calculationOrdered By: Karon Corrales on 11-10-2024 INR Coag (Bld) [Relative time] 2.6 {INR} [facility] Prothrombin Time w/INRon INR Coag (PPP) [Relative time] 2.6 {INR} Normal [facility] Comment on above: Order Comment: 411.2 Performed By: #### L 300.3900 ####[facility] [address] [place], [address] PT Coag (PPP) [Time] 28.7 s High 11.7-14.9 [facility] Comment on above: Order Comment: 411.2 Performed By: #### L 300.3900 ####[facility] [address] [place], [address] Prothrombin timeOrdered By: Karon Corrales on 11-10-2024 PT Coag (PPP) [Time] 28.7 s High 11.7-14.9 [facility] International normalized rat io (INR) calculationOrdered By: Karon Corrales on 11-06-2024 INR Coag (Bld) [Relative time] 3.1 {INR} [facility] Prothrombin Time w/INRon INR Coag (PPP) [Relative time] 3.1 {INR} Normal [facility] Comment on above: Order Comment: 411.2 Performed By: #### L 300.3900 ####[facility] [address] [place], [address] Prothrombin timeOrdered By: Karon Corrales on 11-06-2024 PT Coag (PPP) [Time] 33.0 s High 11.7-14.9 [facility] Comment on above: Order Comment: 411.2 Performed By: #### L 300.3900 ####[facility] [address] [place], [address] International normalized rat io (INR) calculationOrdered By: Carlos Cavazos on 11-03-2024 INR Coag (Bld) [Relative time] 3.0 {INR} [facility] Prothrombin Time w/INRon INR Coag (PPP) [Relative time] 3.0 {INR} Normal [facility] Comment on above: Order Comment: 411-2 Performed By: #### L 300.3900 ####[facility] [address], [address] PT Coag (PPP) [Time] 31.4 s High 11.7-14.9 [facility] Comment on above: Order Comment: 411-2 Performed By: #### L 300.3900 ####[facility] [address], [address] Prothrombin timeOrdered By: Carlos Cavazos on 11-03-2024 PT Coag (PPP) [Time] 31.4 s High 11.7-14.9 [facility] International normalized rat io (INR) calculationOrdered By: Karon Corrales on 10-30-2024 INR Coag (Bld) [Relative time] 2.4 {INR} [facility] Prothrombin Time w/INRon INR Coag (PPP) [Relative time] 2.4 {INR} Normal [facility] Comment on above: Performed By: #### L 300.3900 ####[facility] [address] [place], [address] PT Coag (PPP) [Time] 26.3 s High 11.7-14.9 [facility] Comment on above: Performed By: #### L 300.3900 ####[facility] [address], [address] Prothrombin timeOrdered By: Karon Corrales on 10-30-2024 PT Coag (PPP) [Time] 26.3 s High 11.7-14.9 [facility] International normalized rat io (INR) calculationOrdered By: Karon Corrales on 10-27-2024 INR Coag (Bld) [Relative time] 2.2 {INR} [facility] Prothrombin Time w/INRon INR Coag (PPP) [Relative time] 2.2 {INR} Normal [facility] Comment on above: Order Comment: 411.2 Performed By: #### L 300.3900 ####[facility] [address] [place], [address] Prothrombin timeOrdered By: Karon Corrales on 10-27-2024 PT Coag (PPP) [Time] 24.5 s High 11.7-14.9 [facility] Comment on above: Order Comment: 411.2 Performed By: #### L 300.3900 ####[facility] [address] [place], [place], [address] International normalized rat io (INR) calculationOrdered By: Karon Corrales on 10-23-2024 INR Coag (Bld) [Relative time] 2.5 {INR} [facility] Prothrombin Time w/INRon INR Coag (PPP) [Relative time] 2.5 {INR} Normal [facility] Comment on above: Order Comment: 411.2 Performed By: #### L 300.3900 ####[facility] [address] [place], [address] PT Coag (PPP) [Time] 27.9 s High 11.7-14.9 [facility] Comment on above: Order Comment: 411.2 Performed By: #### L 300.3900 ####[facility] [address] [place], [place], [phone] Prothrombin timeOrdered By: Karon Corrales on 10-23-2024 PT Coag (PPP) [Time] 27.9 s High 11.7-14.9 [facility] International normalized rat io (INR) calculationOrdered By: Karon Corrales on 10-20-2024 INR Coag (Bld) [Relative time] 3.1 {INR} [facility] Prothrombin Time w/INRon INR Coag (PPP) [Relative time] 3.1 {INR} Normal [facility] Comment on above: Order Comment: 411.2 Performed By: #### L 300.3900 ####[facility] [address] [place], [address] PT Coag (PPP) [Time] 32.8 s High 11.7-14.9 [facility] Comment on above: Order Comment: 411.2 Performed By: #### L 300.3900 ####[facility] [address] [place], [place], [phone] Prothrombin timeOrdered By: Karon Corrales on 10-20-2024 PT Coag (PPP) [Time] 32.8 s High 11.7-14.9 [facility] International normalized rat io (INR) calculationOrdered By: Karon Corrales on 10-16-2024 INR Coag (Bld) [Relative time] 2.8 {INR} [facility] Prothrombin Time w/INRon INR Coag (PPP) [Relative time] 2.8 {INR} Normal [facility] Comment on above: Order Comment: 411.2 Performed By: #### L 300.3900 ####[facility] [address] [place], [address] PT Coag (PPP) [Time] 30.4 s High 11.7-14.9 [facility] Comment on above: Order Comment: 411.2 Performed By: #### L 300.3900 ####[facility] [address] [place], [address] Prothrombin timeOrdered By: Karon Corrales on 10-16-2024 PT Coag (PPP) [Time] 30.4 s High 11.7-14.9 [facility] International normalized rat io (INR) calculationOrdered By: Carlos Cavazos on 10-13-2024 INR Coag (Bld) [Relative time] 1.9 {INR} [facility] Prothrombin Time w/INRon INR Coag (PPP) [Relative time] 1.9 {INR} Normal [facility] Comment on above: Order Comment: 411-2 Performed By: #### L 300.3900 ####[facility] [address] [place], [address] PT Coag (PPP) [Time] 22.4 s High 11.7-14.9 [facility] Comment on above: Order Comment: 411-2 Performed By: #### L 300.3900 ####[facility] [address] [place], [address] Prothrombin timeOrdered By: Carlos Cavazos on 10-13-2024 PT Coag (PPP) [Time] 22.4 s High 11.7-14.9 [facility] International normalized rat io (INR) calculationOrdered By: Karon Corrales on 10-09-2024 INR Coag (Bld) [Relative time] 3.0 {INR} [facility] Prothrombin Time w/INRon INR Coag (PPP) [Relative time] 3.0 {INR} Normal [facility] Comment on above: Order Comment: 411.2 Performed By: #### L 300.3900 ####[facility] [address] [place], [address] Prothrombin timeOrdered By: Karon Corrales on 10-09-2024 PT Coag (PPP) [Time] 31.8 s High 11.7-14.9 [facility] Comment on above: Order Comment: 411.2 Performed By: #### L 300.3900 ####[facility] [address] [place], [address] International normalized rat io (INR) calculationOrdered By: Carlos Cavazos on 10-06-2024 INR Coag (Bld) [Relative time] 2.7 {INR} [facility] Prothrombin Time w/INRon INR Coag (PPP) [Relative time] 2.7 {INR} Normal [facility] Comment on above: Order Comment: 411-2 Performed By: #### L 300.3900 ####[facility] [address] [place], [address] PT Coag (PPP) [Time] 29.6 s High 11.7-14.9 [facility] Comment on above: Order Comment: 411-2 Performed By: #### L 300.3900 ####[facility] [address] [place], [place], [phone] Prothrombin timeOrdered By: Carlos Cavazos on 10-06-2024 PT Coag (PPP) [Time] 29.6 s High 11.7-14.9 [facility] International normalized rat io (INR) calculationOrdered By: Karon Corrales on 10-02-2024 INR Coag (Bld) [Relative time] 2.3 {INR} [facility] Prothrombin Time w/INRon INR Coag (PPP) [Relative time] 2.3 {INR} Normal [facility] Comment on above: Order Comment: 411.2 Performed By: #### L 300.3900 ####[facility] [address] [place] [place], [address] PT Coag (PPP) [Time] 26.0 s High 11.7-14.9 [facility] Comment on above: Order Comment: 411.2 Performed By: #### L 300.3900 ####[facility] [address], [address] Prothrombin timeOrdered By: Karon Corrales on 10-02-2024 PT Coag (PPP) [Time] 26.0 s High 11.7-14.9 [facility] International normalized rat io (INR) calculationOrdered By: Karon Corrales on 09-30-2024 INR Coag (Bld) [Relative time] 3.1 {INR} [facility] Prothrombin Time w/INRon INR Coag (PPP) [Relative time] 3.1 {INR} Normal [facility] Comment on above: Order Comment: 411.2 Performed By: #### L 300.3900 ####[facility] [address], [address] PT Coag (PPP) [Time] 32.6 s High 11.7-14.9 [facility] Comment on above: Order Comment: 411.2 Performed By: #### L 300.3900 ####[facility] [address] [place], [address] Prothrombin timeOrdered By: Karon Corrales on 09-30-2024 PT Coag (PPP) [Time] 32.6 s High 11.7-14.9 [facility] International normalized rat io (INR) calculationOrdered By: Karon Corrales on 09-25-2024 INR Coag (Bld) [Relative time] 2.4 {INR} [facility] Prothrombin Time w/INRon INR Coag (PPP) [Relative time] 2.4 {INR} Normal [facility] Comment on above: Order Comment: 411.2 Performed By: #### L 300.3900 ####[facility] [address] [place], [address] Prothrombin timeOrdered By: Karon Corrales on 09-25-2024 PT Coag (PPP) [Time] 26.7 s High 11.7-14.9 [facility] Comment on above: Order Comment: 411.2 Performed By: #### L 300.3900 ####[facility] [address] [place], [address] International normalized rat io (INR) calculationOrdered By: Karon Corrales on 09-22-2024 INR Coag (Bld) [Relative time] 2.5 {INR} [facility] Prothrombin Time w/INRon INR Coag (PPP) [Relative time] 2.5 {INR} Normal [facility] Comment on above: Order Comment: 411.2 Performed By: #### L 300.3900 ####[facility] [address] [place], [place], [address] Prothrombin timeOrdered By: Karon Corrales on 09-22-2024 PT Coag (PPP) [Time] 27.4 s High 11.7-14.9 [facility] Comment on above: Order Comment: 411.2 Performed By: #### L 300.3900 ####[facility] [address] [place], [place], [address] International normalized rat io (INR) calculationOrdered By: Karon Corrales on 09-18-2024 INR Coag (Bld) [Relative time] 2.2 {INR} [facility] Prothrombin Time w/INRon INR Coag (PPP) [Relative time] 2.2 {INR} Normal [facility] Comment on above: Order Comment: 411.2 Performed By: #### L 300.3900 ####[facility] [address] [place], [address] PT Coag (PPP) [Time] 25.1 s High 11.7-14.9 [facility] Comment on above: Order Comment: 411.2 Performed By: #### L 300.3900 ####[facility] [address] [place], [place], [phone] Prothrombin timeOrdered By: Karon Corrales on 09-18-2024 PT Coag (PPP) [Time] 25.1 s High 11.7-14.9 [facility] International normalized rat io (INR) calculationOrdered By: Carlos Cavazos on 09-15-2024 INR Coag (Bld) [Relative time] 2.4 {INR} [facility] Prothrombin Time w/INRon INR Coag (PPP) [Relative time] 2.4 {INR} Normal [facility] Comment on above: Order Comment: 411-2 Performed By: #### L 300.3900 ####[facility] [address] [place], [place], [phone] Prothrombin timeOrdered By: Carlos Cavazos on 09-15-2024 PT Coag (PPP) [Time] 26.3 s High 11.7-14.9 [facility] Comment on above: Order Comment: 411-2 Performed By: #### L 300.3900 ####[facility] [address] [place], [place], [phone] International normalized rat io (INR) calculationOrdered By: Karon Corrales on 09-11-2024 INR Coag (Bld) [Relative time] 2.0 {INR} [facility] Prothrombin Time w/INRon INR Coag (PPP) [Relative time] 2.0 {INR} Normal [facility] Comment on above: Order Comment: 411.2 Performed By: #### L 300.3900 ####[facility] [address] [place], [place], [address] PT Coag (PPP) [Time] 22.9 s High 11.7-14.9 [facility] Comment on above: Order Comment: 411.2 Performed By: #### L 300.3900 ####[facility] [address] [place], [place], [phone] Prothrombin timeOrdered By: Karon Corrales on 09-11-2024 PT Coag (PPP) [Time] 22.9 s High 11.7-14.9 [facility] International normalized rat io (INR) calculationOrdered By: Karon Corrales on 09-08-2024 INR Coag (Bld) [Relative time] 2.0 {INR} [facility] Prothrombin Time w/INRon INR Coag (PPP) [Relative time] 2.0 {INR} Normal [facility] Comment on above: Order Comment: 411.2 Performed By: #### L 300.3900 ####[facility] [address] [place], [address](476) PT Coag (PPP) [Time] 22.8 s High 11.7-14.9 [facility] Comment on above: Order Comment: 411.2 Performed By: #### L 300.3900 ####[facility] [address] [place], [place], [phone] Prothrombin timeOrdered By: Karon Corrales on 09-08-2024 PT Coag (PPP) [Time] 22.8 s High 11.7-14.9 [facility] International normalized rat io (INR) calculationOrdered By: Carlos Cavazos on 09-04-2024 INR Coag (Bld) [Relative time] 1.7 {INR} [facility] Prothrombin Time w/INRon INR Coag (PPP) [Relative time] 1.7 {INR} Normal [facility] Comment on above: Order Comment: 411-2 Performed By: #### L 300.3900 ####[facility] [address] [place], [address] PT Coag (PPP) [Time] 20.8 s High 11.7-14.9 [facility] Comment on above: Order Comment: 411-2 Performed By: #### L 300.3900 ####[facility] [address] [place], [address] Prothrombin timeOrdered By: Carlos Cavazos on 09-04-2024 PT Coag (PPP) [Time] 20.8 s High 11.7-14.9 [facility] International normalized rat io (INR) calculationOrdered By: Carlos Cavazos on 09-01-2024 INR Coag (Bld) [Relative time] 2.9 {INR} [facility] Prothrombin Time w/INRon INR Coag (PPP) [Relative time] 2.9 {INR} Normal [facility] Comment on above: Order Comment: 411-2 Performed By: #### L 300.3900 ####[facility] [address] [place], [address] PT Coag (PPP) [Time] 30.7 s High 11.7-14.9 [facility] Comment on above: Order Comment: 411-2 Performed By: #### L 300.3900 ####[facility] [address] [place], [address] Prothrombin timeOrdered By: Carlos Cavazos on 09-01-2024 PT Coag (PPP) [Time] 30.7 s High 11.7-14.9 [facility] International normalized rat io (INR) calculationOrdered By: Carlos Cavazos on 08-28-2024 INR Coag (Bld) [Relative time] 2.4 {INR} [facility] Prothrombin Time w/INRon INR Coag (PPP) [Relative time] 2.4 {INR} Normal [facility] Comment on above: Order Comment: 411-2 Performed By: #### L 300.3900 ####[facility] [address] [place], [address] Prothrombin timeOrdered By: Carlos Cavazos on 08-28-2024 PT Coag (PPP) [Time] 26.7 s High 11.7-14.9 [facility] Comment on above: Order Comment: 411-2 Performed By: #### L 300.3900 ####[facility] [address] [place], [address] International normalized rat io (INR) calculationOrdered By: Karon Corrales on 08-25-2024 INR Coag (Bld) [Relative time] 1.8 {INR} [facility] Prothrombin Time w/INRon INR Coag (PPP) [Relative time] 1.8 {INR} Normal [facility] Comment on above: Order Comment: 411.2 Performed By: #### L 300.3900 ####[facility] [address] [place], [address] PT Coag (PPP) [Time] 21.6 s High 11.7-14.9 [facility] Comment on above: Order Comment: 411.2 Performed By: #### L 300.3900 ####[facility] [address] [place], [address] Prothrombin timeOrdered By: Karon Corrales on 08-25-2024 PT Coag (PPP) [Time] 21.6 s High 11.7-14.9 [facility] International normalized rat io (INR) calculationOrdered By: Karon Corrales on 08-21-2024 INR Coag (Bld) [Relative time] 1.7 {INR} [facility] PSA, total screeningOrdered By: Karon Corrales on 08-21-2024 Prostate Specific Antigen Screen 0.52 ng/mL 0.02-4.[address] [facility] Comment on above: This test was [...] 08-21-2024 PSA,TOT SCREEN 0.52 ng/mL Normal 0.02-4.[address] [facility] Comment on above: Order Comment: 411.2 [...] values. Performed By: #### L 501.9910, L300.3900 ####[facility] [address] [place], [address] Prothrombin Time w/INRon INR Coag (PPP) [Relative time] 1.7 {INR} Normal [facility] Comment on above: Order Comment: 411.2 Performed By: #### L 501.9910, L300.3900 ####[facility] [address] [place], [address] Prothrombin timeOrdered By: Karon Corrales on 08-21-2024 PT Coag (PPP) [Time] 20.1 s High 11.7-14.9 [facility] Comment on above: Order Comment: 411.2 Performed By: #### L 501.9910, L300.3900 ####[facility] [address] [place], [address] International normalized rat io (INR) calculationOrdered By: Karon Corrales on 08-18-2024 INR Coag (Bld) [Relative time] 3.0 {INR} [facility] Prothrombin Time w/INRon INR Coag (PPP) [Relative time] 3.0 {INR} Normal [facility] Comment on above: Order Comment: 411.2 Performed By: #### L 300.3900 ####[facility] [address] [place], [address] PT Coag (PPP) [Time] 31.4 s High 11.7-14.9 [facility] Comment on above: Order Comment: 411.2 Performed By: #### L 300.3900 ####[facility] [address] [place], [address] Prothrombin timeOrdered By: Karon Corrales on 08-18-2024 PT Coag (PPP) [Time] 31.4 s High 11.7-14.9 [facility] International normalized rat io (INR) calculationOrdered By: Karon Corrales on 08-14-2024 INR Coag (Bld) [Relative time] 2.4 {INR} [facility] Prothrombin Time w/INRon INR Coag (PPP) [Relative time] 2.4 {INR} Normal [facility] Comment on above: Order Comment: 411.2 Performed By: #### L 300.3900 ####[facility] [address] [place], [place], [phone] PT Coag (PPP) [Time] 26.6 s High 11.7-14.9 [facility] Comment on above: Order Comment: 411.2 Performed By: #### L 300.3900 ####[facility] [address] [place], [place], [phone] Prothrombin timeOrdered By: Karon Corrales on 08-14-2024 PT Coag (PPP) [Time] 26.6 s High 11.7-14.9 [facility] International normalized rat io (INR) calculationOrdered By: Karon Corrales on 08-11-2024 INR Coag (Bld) [Relative time] 3.1 {INR} [facility] Prothrombin Time w/INRon INR Coag (PPP) [Relative time] 3.1 {INR} Normal [facility] Comment on above: Order Comment: 411.2 Performed By: #### L 300.3900 ####[facility] [address] [place], [address] PT Coag (PPP) [Time] 32.4 s High 11.7-14.9 [facility] Comment on above: Order Comment: 411.2 Performed By: #### L 300.3900 ####[facility] [address] [place], [place], [phone] Prothrombin timeOrdered By: Karon Corrales on 08-11-2024 PT Coag (PPP) [Time] 32.4 s High 11.7-14.9 [facility] International normalized rat io (INR) calculationOrdered By: Carlos Cavazos on 08-07-2024 INR Coag (Bld) [Relative time] 2.8 {INR} [facility] Prothrombin Time w/INRon INR Coag (PPP) [Relative time] 2.8 {INR} Normal [facility] Comment on above: Order Comment: 411-2 Performed By: #### L 300.3900 ####[facility] [address] [place], [place], [phone](451) PT Coag (PPP) [Time] 30.3 s High 11.7-14.9 [facility] Comment on above: Order Comment: 411-2 Performed By: #### L 300.3900 ####[facility] [address] [place], [place], [phone] Prothrombin timeOrdered By: Carlos Cavazos on 08-07-2024 PT Coag (PPP) [Time] 30.3 s High 11.7-14.9 [facility] International normalized rat io (INR) calculationOrdered By: Carlos Cavazos on 08-04-2024 INR Coag (Bld) [Relative time] 1.9 {INR} [facility] Prothrombin Time w/INRon INR Coag (PPP) [Relative time] 1.9 {INR} Normal [facility] Comment on above: Order Comment: 411-2 Performed By: #### L 300.3900 ####[facility] [address] [place], [place], [phone] PT Coag (PPP) [Time] 22.1 s High 11.7-14.9 [facility] Comment on above: Order Comment: 411-2 Performed By: #### L 300.3900 ####[facility] [facility] [address] [place], [place], [phone] Prothrombin timeOrdered By: Carlos Cavazos on 08-04-2024 PT Coag (PPP) [Time] 22.1 s High 11.7-14.9 [facility] International normalized rat io (INR) calculationOrdered By: Karon Corrales on 07-31-2024 INR Coag (Bld) [Relative time] 3.2 {INR} [facility] Prothrombin Time w/INRon INR Coag (PPP) [Relative time] 3.2 {INR} Normal [facility] Comment on above: Order Comment: 411.2 Performed By: #### L 300.3900 ####[facility] [address], [address](444 PT Coag (PPP) [Time] 33.5 s High 11.7-14.9 [facility] Comment on above: Order Comment: 411.2 Performed By: #### L 300.3900 ####[facility] [address] [place], [place], [phone](040 Prothrombin timeOrdered By: Karon Corrales on 07-31-2024 PT Coag (PPP) [Time] 33.5 s High 11.7-14.9 [facility] International normalized rat io (INR) calculationOrdered By: Karon Corrales on 07-28-2024 INR Coag (Bld) [Relative time] 2.7 {INR} [facility] Prothrombin Time w/INRon INR Coag (PPP) [Relative time] 2.7 {INR} Normal [facility] Comment on above: Order Comment: 411.2 Performed By: #### L 300.3900 ####[facility] [address] [place], [address] PT Coag (PPP) [Time] 29.6 s High 11.7-14.9 [facility] Comment on above: Order Comment: 411.2 Performed By: #### L 300.3900 ####[facility] [address] [place], [address] Prothrombin timeOrdered By: Karon Corrales on 07-28-2024 PT Coag (PPP) [Time] 29.6 s High 11.7-14.9 [facility] International normalized rat io (INR) calculationOrdered By: Carlos Cavazos on 07-25-2024 INR Coag (Bld) [Relative time] 3.0 {INR} [facility] Prothrombin Time w/INRon INR Coag (PPP) [Relative time] 3.0 {INR} Normal [facility] Comment on above: Order Comment: 411-2 Performed By: #### L 300.3900 ####[facility] [address] [place], [address] Prothrombin timeOrdered By: Carlos Cavazos on 07-25-2024 PT Coag (PPP) [Time] 32.1 s High 11.7-14.9 [facility] Comment on above: Order Comment: 411-2 Performed By: #### L 300.3900 ####[facility] [address] [place], [address] International normalized rat io (INR) calculationOrdered By: aKron Corrales on 07-24-2024 INR Coag (Bld) [Relative time] 3.4 {INR} [facility] Prothrombin Time w/INRon INR Coag (PPP) [Relative time] 3.4 {INR} Normal [facility] Comment on above: Order Comment: 411.2 Performed By: #### L 300.3900 ####[facility] [address] [place], [address] Prothrombin timeOrdered By: Karon Corrales on 07-24-2024 PT Coag (PPP) [Time] 35.4 s High 11.7-14.9 [facility] Comment on above: Order Comment: 411.2 Performed By: #### L 300.3900 ####[facility] [address] [place], [address] International normalized rat io (INR) calculationOrdered By: Karon Corrales on 07-21-2024 INR Coag (Bld) [Relative time] 1.6 {INR} [facility] Prothrombin Time w/INRon INR Coag (PPP) [Relative time] 1.6 {INR} Normal [facility] Comment on above: Order Comment: 411.2 Performed By: #### L 300.3900 ####[facility] [address] [place], [place], [phone] PT Coag (PPP) [Time] 19.6 s High 11.7-14.9 [facility] Comment on above: Order Comment: 411.2 Performed By: #### L 300.3900 ####[facility] [address] [place], [address] Prothrombin timeOrdered By: Karon Corrales on 07-21-2024 PT Coag (PPP) [Time] 19.6 s High 11.7-14.9 [facility] International normalized rat io (INR) calculationOrdered By: Karon Corrales on 07-17-2024 INR Coag (Bld) [Relative time] 2.9 {INR} [facility] Prothrombin Time w/INRon INR Coag (PPP) [Relative time] 2.9 {INR} Normal [facility] Comment on above: Order Comment: 411.2 Performed By: #### L 300.3900 ####[facility] [address] [place], [place], [phone](862 PT Coag (PPP) [Time] 31.1 s High 11.7-14.9 [facility] Comment on above: Order Comment: 411.2 Performed By: #### L 300.3900 ####[facility] [address] [place], [address] Prothrombin timeOrdered By: Karon Corrales on 07-17-2024 PT Coag (PPP) [Time] 31.1 s High 11.7-14.9 [facility] International normalized rat io (INR) calculationOrdered By: Carlos Cavazos on 07-14-2024 INR Coag (Bld) [Relative time] 2.5 {INR} [facility] Prothrombin Time w/INRon INR Coag (PPP) [Relative time] 2.5 {INR} Normal [facility] Comment on above: Order Comment: 411-2 Performed By: #### L 300.3900 ####[facility] [address] [place], [address] PT Coag (PPP) [Time] 27.5 s High 11.7-14.9 [facility] Comment on above: Order Comment: 411-2 Performed By: #### L 300.3900 ####[facility] [address] [place], [address] Prothrombin timeOrdered By: Carlos Cavazos on 07-14-2024 PT Coag (PPP) [Time] 27.5 s High 11.7-14.9 [facility] International normalized rat io (INR) calculationOrdered By: Carlos Cavazos on 07-11-2024 INR Coag (Bld) [Relative time] 2.5 {INR} [facility] Prothrombin Time w/INRon INR Coag (PPP) [Relative time] 2.5 {INR} Normal [facility] Comment on above: Performed By: #### L 300.3900 ####[facility] [address] [place], [address] PT Coag (PPP) [Time] 27.7 s High 11.7-14.9 [facility] Comment on above: Performed By: #### L 300.3900 ####[facility] [address] [place], [address] Prothrombin timeOrdered By: Carlos Cavazos on 07-11-2024 PT Coag (PPP) [Time] 27.7 s High 11.7-14.9 [facility] Prothrombin Time w/INRon INR Normal [facility] Comment on above: Order Comment: 411.2 Result Comment: QNS TUBE NOT FILLED Performed By: #### L 300.3900 ####[facility] [address] [place], [address] PROTIME Normal 11.7-14.[address] [facility] Comment on above: Order Comment: 411.2 Result Comment: QNS TUBE NOT FILLED Performed By: #### L 300.3900 ####[facility] [address] [place], [address] International normalized rat io (INR) calculationOrdered By: Kvng Crisostomo on 07-07-2024 INR Coag (Bld) [Relative time] 2.5 {INR} [facility] Prothrombin Time w/INRon INR Coag (PPP) [Relative time] 2.5 {INR} Normal [facility] Comment on above: Order Comment: 411.2 Performed By: #### L 300.3900 ####[facility] [address] [place], [address] PT Coag (PPP) [Time] 27.2 s High 11.7-14.9 [facility] Comment on above: Order Comment: 411.2 Performed By: #### L 300.3900 ####[facility] [address] [place], [address] Prothrombin timeOrdered By: Kvng Crisostomo on 07-07-2024 PT Coag (PPP) [Time] 27.2 s High 11.7-14.9 [facility] International normalized rat io (INR) calculationOrdered By: Kvng Crisostomo on 07-03-2024 INR Coag (Bld) [Relative time] 2.5 {INR} [facility] Prothrombin Time w/INRon INR Coag (PPP) [Relative time] 2.5 {INR} Normal [facility] Comment on above: Order Comment: 411.2 Performed By: #### L 300.3900 ####[facility] [address] [place], [address] PT Coag (PPP) [Time] 27.2 s High 11.7-14.9 [facility] Comment on above: Order Comment: 411.2 Performed By: #### L 300.3900 ####[facility] [address] [place], [address] Prothrombin timeOrdered By: Kvng Crisostomo on 07-03-2024 PT Coag (PPP) [Time] 27.2 s High 11.7-14.9 [facility] International normalized rat io (INR) calculationOrdered By: Babrocio Crisostomo on 06-30-2024 INR Coag (Bld) [Relative time] 2.4 {INR} [facility] Prothrombin Time w/INRon INR Coag (PPP) [Relative time] 2.4 {INR} Normal [facility] Comment on above: Order Comment: 411.2 Performed By: #### L 300.3900 ####[facility] [address], [address] PT Coag (PPP) [Time] 26.8 s High 11.7-14.9 [facility] Comment on above: Order Comment: 411.2 Performed By: #### L 300.3900 ####[facility] [address] [place], [place], [phone] Prothrombin timeOrdered By: Kvng Crisostomo on 06-30-2024 PT Coag (PPP) [Time] 26.8 s High 11.7-14.9 [facility] International normalized rat io (INR) calculationOrdered By: Babrocio Crisostomo on 06-26-2024 INR Coag (Bld) [Relative time] 2.5 {INR} [facility] Prothrombin Time w/INRon INR Coag (PPP) [Relative time] 2.5 {INR} Normal [facility] Comment on above: Order Comment: 411.2 Performed By: #### L 300.3900 ####[facility] [address] [place], [place], [phone](195) PT Coag (PPP) [Time] 27.5 s High 11.7-14.9 [facility] Comment on above: Order Comment: 411.2 Performed By: #### L 300.3900 ####[facility] [address] [place], [place], [phone](179) Prothrombin timeOrdered By: Kvng Crisostomo on 06-26-2024 PT Coag (PPP) [Time] 27.5 s High 11.7-14.9 [facility] International normalized rat io (INR) calculationOrdered By: Carlos Cavazos on 06-23-2024 INR Coag (Bld) [Relative time] 2.8 {INR} [facility] Prothrombin Time w/INRon INR Coag (PPP) [Relative time] 2.8 {INR} Normal [facility] Comment on above: Order Comment: 411-2 Performed By: #### L 300.3900 ####[facility] [address] [place], [address] PT Coag (PPP) [Time] 29.7 s High 11.7-14.9 [facility] Comment on above: Order Comment: 411-2 Performed By: #### L 300.3900 ####[facility] [address] [place], [address] Prothrombin timeOrdered By: Carlos Cavazos on 06-23-2024 PT Coag (PPP) [Time] 29.7 s High 11.7-14.9 [facility] International normalized rat io (INR) calculationOrdered By: Kvng Crisostomo on 06-19-2024 INR Coag (Bld) [Relative time] 2.6 {INR} [facility] Prothrombin Time w/INRon INR Coag (PPP) [Relative time] 2.6 {INR} Normal [facility] Comment on above: Order Comment: 411.2 Performed By: #### L 300.3900 ####[facility] [address] [place], [address] PT Coag (PPP) [Time] 28.6 s High 11.7-14.9 [facility] Comment on above: Order Comment: 411.2 Performed By: #### L 300.3900 ####[facility] [address] [place], [address] Prothrombin timeOrdered By: Kvng Crisostomo on 06-19-2024 PT Coag (PPP) [Time] 28.6 s High 11.7-14.9 [facility] International normalized rat io (INR) calculationOrdered By: Kvng Crisostomo on 06-16-2024 INR Coag (Bld) [Relative time] 2.5 {INR} [facility] Prothrombin Time w/INRon INR Coag (PPP) [Relative time] 2.5 {INR} Normal [facility] Comment on above: Order Comment: 411.2 Performed By: #### L 300.3900 ####[facility] [address] [place], [address] PT Coag (PPP) [Time] 27.3 s High 11.7-14.9 [facility] Comment on above: Order Comment: 411.2 Performed By: #### L 300.3900 ####[facility] [address] [place], [address] Prothrombin timeOrdered By: Kvng Crisostomo on 06-16-2024 PT Coag (PPP) [Time] 27.3 s High 11.7-14.9 [facility] International normalized rat io (INR) calculationOrdered By: Kvng Crisostomo on 06-12-2024 INR Coag (Bld) [Relative time] 2.1 {INR} [facility] Prothrombin Time w/INRon INR Coag (PPP) [Relative time] 2.1 {INR} Normal [facility] Comment on above: Order Comment: 411.2 Performed By: #### L 300.3900 ####[facility] [address] [place], [place], [phone]) PT Coag (PPP) [Time] 24.0 s High 11.7-14.9 [facility] Comment on above: Order Comment: 411.2 Performed By: #### L 300.3900 ####[facility] [address] [place], [address] Prothrombin timeOrdered By: Kvng Crisostomo on 06-12-2024 PT Coag (PPP) [Time] 24.0 s High 11.7-14.9 [facility] International normalized rat io (INR) calculationOrdered By: Carlos Cavazos on 06-09-2024 INR Coag (Bld) [Relative time] 1.5 {INR} [facility] Prothrombin Time w/INRon INR Coag (PPP) [Relative time] 1.5 {INR} Normal [facility] Comment on above: Order Comment: 411-2 Performed By: #### L 300.3900 ####[facility] [address] [place], [address] PT Coag (PPP) [Time] 18.0 s High 11.7-14.9 [facility] Comment on above: Order Comment: 411-2 Performed By: #### L 300.3900 ####[facility] [address] [place], [address] Prothrombin timeOrdered By: Carlos Cavazos on 06-09-2024 PT Coag (PPP) [Time] 18.0 s High 11.7-14.9 [facility] International normalized rat io (INR) calculationOrdered By: Kvng Crisostomo on 06-05-2024 INR Coag (Bld) [Relative time] 2.8 {INR} [facility] Prothrombin Time w/INRon INR Coag (PPP) [Relative time] 2.8 {INR} Normal [facility] Comment on above: Order Comment: 411.2 Performed By: #### L 300.3900 ####[facility] [address] [place], [address] PT Coag (PPP) [Time] 30.3 s High 11.7-14.9 [facility] Comment on above: Order Comment: 411.2 Performed By: #### L 300.3900 ####[facility] [address] [place], [address] Prothrombin timeOrdered By: Babjulyet Andressa on 06-05-2024 PT Coag (PPP) [Time] 30.3 s High 11.7-14.9 [facility] International normalized rat io (INR) calculationOrdered By: Babbaljeet Crisostomo on 06-02-2024 INR Coag (Bld) [Relative time] 2.6 {INR} [facility] Prothrombin Time w/INRon INR Coag (PPP) [Relative time] 2.6 {INR} Normal [facility] Comment on above: Order Comment: 411.2 Performed By: #### L 300.3900 ####[facility] [address] [place], [address] PT Coag (PPP) [Time] 28.6 s High 11.7-14.9 [facility] Comment on above: Order Comment: 411.2 Performed By: #### L 300.3900 ####[facility] [address] [place], [address] Prothrombin timeOrdered By: Babsigifredojeet Andressa on 06-02-2024 PT Coag (PPP) [Time] 28.6 s High 11.7-14.9 [facility] International normalized rat io (INR) calculationOrdered By: Babbaljeet Crisostomo on 05-29-2024 INR Coag (Bld) [Relative time] 2.5 {INR} [facility] Prothrombin Time w/INRon INR Coag (PPP) [Relative time] 2.5 {INR} Normal [facility] Comment on above: Order Comment: 411.2 Performed By: #### L 300.3900 ####[facility] [address] [place], [address] PT Coag (PPP) [Time] 27.7 s High 11.7-14.9 [facility] Comment on above: Order Comment: 411.2 Performed By: #### L 300.3900 ####[facility] [address] [place], [address] Prothrombin timeOrdered By: Kvng Crisostomo on 05-29-2024 PT Coag (PPP) [Time] 27.7 s High 11.7-14.9 [facility] International normalized rat io (INR) calculationOrdered By: Carlos Cavazos on 05-26-2024 INR Coag (Bld) [Relative time] 2.2 {INR} [facility] Prothrombin Time w/INRon INR Coag (PPP) [Relative time] 2.2 {INR} Normal [facility] Comment on above: Order Comment: 411-2 Performed By: #### L 300.3900 ####[facility] [address] [place], [address] PT Coag (PPP) [Time] 24.5 s High 11.7-14.9 [facility] Comment on above: Order Comment: 411-2 Performed By: #### L 300.3900 ####[facility] [address] [place], [address] Prothrombin timeOrdered By: Carlos Cavazos on 05-26-2024 PT Coag (PPP) [Time] 24.5 s High 11.7-14.9 [facility] International normalized rat io (INR) calculationOrdered By: Kvng Crisostomo on 05-22-2024 INR Coag (Bld) [Relative time] 2.8 {INR} [facility] Prothrombin Time w/INRon INR Coag (PPP) [Relative time] 2.8 {INR} Normal [facility] Comment on above: Order Comment: 411.2 Performed By: #### L 300.3900 ####[facility] [address] [place], [address] PT Coag (PPP) [Time] 30.3 s High 11.7-14.9 [facility] Comment on above: Order Comment: 411.2 Performed By: #### L 300.3900 ####[facility] [address] [place], [address] Prothrombin timeOrdered By: Kvng Crisostomo on 05-22-2024 PT Coag (PPP) [Time] 30.3 s High 11.7-14.9 [facility] International normalized rat io (INR) calculationOrdered By: Kvng Crisostomo on 05-20-2024 INR Coag (Bld) [Relative time] 4.0 {INR} High [facility] Comment on above: CRITICAL VALUE CASEY D TO [id number]/14/25 0828 Diana Mattson.RESULTS READ BACK BY SAME. Prothrombin Time w/INRon INR Coag (PPP) [Relative time] 4.0 {INR} Invalid Interpretation Code [facility] Comment on above: Order Comment: 411.2 Result Comment: CRIT ICAL VALUE CALLED TO [id number]/14/25 28 Diana Mattson.RESULTS READ BACK BY SAME. Performed By: #### L 300.3900 ####[facility] [address] [place], [address] PT Coag (PPP) [Time] 39.9 s High 11.7-14.9 [facility] Comment on above: Order Comment: 411.2 Performed By: #### L 300.3900 ####[facility] [address] [place], [address] Prothrombin timeOrdered By: Kvng Crisostomo on 05-20-2024 PT Coag (PPP) [Time] 39.9 s High 11.7-14.9 [facility] International normalized rat io (INR) calculationOrdered By: Kvng Crisostomo on 05-19-2024 INR Coag (Bld) [Relative time] 3.4 {INR} [facility] Prothrombin Time w/INRon INR Coag (PPP) [Relative time] 3.4 {INR} Normal [facility] Comment on above: Order Comment: 411.2 Performed By: #### L 300.3900 ####[facility] [address] [place], [place], [phone] PT Coag (PPP) [Time] 35.4 s High 11.7-14.9 [facility] Comment on above: Order Comment: 411.2 Performed By: #### L 300.3900 ####[facility] [address] [place], [place], [phone](124) Prothrombin timeOrdered By: Kvng Crisostomo on 05-19-2024 PT Coag (PPP) [Time] 35.4 s High 11.7-14.9 [facility] International normalized rat io (INR) calculationOrdered By: Kvng Crisostomo on 05-15-2024 INR Coag (Bld) [Relative time] 2.6 {INR} [facility] Prothrombin Time w/INRon INR Coag (PPP) [Relative time] 2.6 {INR} Normal [facility] Comment on above: Order Comment: 411.2 Performed By: #### L 300.3900 ####[facility] [address] [place], [place], [phone]) PT Coag (PPP) [Time] 28.7 s High 11.7-14.9 [facility] Comment on above: Order Comment: 411.2 Performed By: #### L 300.3900 ####[facility] [address] [place], [place], [phone](772) Prothrombin timeOrdered By: Kvng Crisostomo on 05-15-2024 PT Coag (PPP) [Time] 28.7 s High 11.7-14.9 [facility] International normalized rat io (INR) calculationOrdered By: Carlos Cavazos on 05-12-2024 INR Coag (Bld) [Relative time] 2.1 {INR} [facility] Prothrombin Time w/INRon INR Coag (PPP) [Relative time] 2.1 {INR} Normal [facility] Comment on above: Order Comment: 411-2 Performed By: #### L 300.3900 ####[facility] [address] [place], [address] PT Coag (PPP) [Time] 24.1 s High 11.7-14.9 [facility] Comment on above: Order Comment: 411-2 Performed By: #### L 300.3900 ####[facility] [address] [place], [place], [phone] Prothrombin timeOrdered By: Carlos Cavazos on 05-12-2024 PT Coag (PPP) [Time] 24.1 s High 11.7-14.9 [facility] International normalized rat io (INR) calculationOrdered By: Kvng Crisostomo on 05-09-2024 INR Coag (Bld) [Relative time] 3.4 {INR} [facility] Prothrombin Time w/INRon INR Coag (PPP) [Relative time] 3.4 {INR} Normal [facility] Comment on above: Order Comment: 411.2 Performed By: #### L 300.3900 ####[facility] [address] [place], [address] PT Coag (PPP) [Time] 35.4 s High 11.7-14.9 [facility] Comment on above: Order Comment: 411.2 Performed By: #### L 300.3900 ####[facility] [address] [place], [address] Prothrombin timeOrdered By: Kvng Crisostomo on 05-09-2024 PT Coag (PPP) [Time] 35.4 s High 11.7-14.9 [facility] International normalized rat io (INR) calculationOrdered By: Kvng Crisostomo on 05-08-2024 INR Coag (Bld) [Relative time] 4.1 {INR} High [facility] Comment on above: CRITICAL VALUE CASEY D TO [facility]05/08/24 0950 Karen Yaquelin.RESULTS READ BACK BY SAME. Prothrombin Time w/INRon INR Coag (PPP) [Relative time] 4.1 {INR} Invalid Interpretation Code [facility] Comment on above: Order Comment: 411.2 Result Comment: CRIT ICAL VALUE CALLED TO [facility]05/08/24 09 Karen Preciousyvette.RESULTS READ BACK BY SAME. Performed By: #### L 300.3900 ####[facility] [address] [place], [place], [phone] PT Coag (PPP) [Time] 40.8 s High 11.7-14.9 [facility] Comment on above: Order Comment: 411.2 Performed By: #### L 300.3900 ####[facility] [address] [place], [place], [phone](286 Prothrombin timeOrdered By: Kvng Crisostomo on 05-08-2024 PT Coag (PPP) [Time] 40.8 s High 11.7-14.9 [facility] International normalized rat io (INR) calculationOrdered By: Kvng Crisostomo on 05-05-2024 INR Coag (Bld) [Relative time] 3.2 {INR} [facility] Prothrombin Time w/INRon INR Coag (PPP) [Relative time] 3.2 {INR} Normal [facility] Comment on above: Order Comment: 411.2 Performed By: #### L 300.3900 ####[facility] [address] [place], [place], [phone](124 PT Coag (PPP) [Time] 32.5 s High 11.7-14.9 [facility] Comment on above: Order Comment: 411.2 Performed By: #### L 300.3900 ####[facility] [address] [place], [address] Prothrombin timeOrdered By: Kvng Crisostomo on 05-05-2024 PT Coag (PPP) [Time] 32.5 s High 11.7-14.9 [facility] International normalized rat io (INR) calculationOrdered By: Kvng Crisostomo on 05-01-2024 INR Coag (Bld) [Relative time] 3.1 {INR} [facility] Prothrombin Time w/INRon INR Coag (PPP) [Relative time] 3.1 {INR} Normal [facility] Comment on above: Order Comment: 411.2 Performed By: #### L 300.3900 ####[facility] [address] [place], [address] PT Coag (PPP) [Time] 31.9 s High 11.7-14.9 [facility] Comment on above: Order Comment: 411.2 Performed By: #### L 300.3900 ####[facility] [address] [place], [address] Prothrombin timeOrdered By: Kvng Crisostomo on 05-01-2024 PT Coag (PPP) [Time] 31.9 s High 11.7-14.9 [facility] International normalized rat io (INR) calculationOrdered By: Carlos Cavazos on 04-28-2024 INR Coag (Bld) [Relative time] 2.6 {INR} [facility] Prothrombin Time w/INRon INR Coag (PPP) [Relative time] 2.6 {INR} Normal [facility] Comment on above: Order Comment: 411-2 Performed By: #### L 300.3900 ####[facility] [address] [place], [address] PT Coag (PPP) [Time] 27.3 s High 11.7-14.9 [facility] Comment on above: Order Comment: 411-2 Performed By: #### L 300.3900 ####[facility] [address] [place], [address] Prothrombin timeOrdered By: Carlos Cavazos on 04-28-2024 PT Coag (PPP) [Time] 27.3 s High 11.7-14.9 [facility] International normalized rat io (INR) calculationOrdered By: Kvng Crisostomo on 04-24-2024 INR Coag (Bld) [Relative time] 3.6 {INR} [facility] Prothrombin Time w/INRon INR Coag (PPP) [Relative time] 3.6 {INR} Normal [facility] Comment on above: Order Comment: 411.2 Performed By: #### L 300.3900 ####[facility] [address] [place], [address] PT Coag (PPP) [Time] 35.6 s High 11.7-14.9 [facility] Comment on above: Order Comment: 411.2 Performed By: #### L 300.3900 ####[facility] [address] [place], [address] Prothrombin timeOrdered By: Kvng Crisostomo on 04-24-2024 PT Coag (PPP) [Time] 35.6 s High 11.7-14.9 [facility] International normalized rat io (INR) calculationOrdered By: Carlos Cavazos on 04-21-2024 INR Coag (Bld) [Relative time] 2.8 {INR} [facility] Prothrombin Time w/INRon INR Coag (PPP) [Relative time] 2.8 {INR} Normal [facility] Comment on above: Order Comment: 411-2 Performed By: #### L 300.3900 ####[facility] [address] [place], [place], [phone]) PT Coag (PPP) [Time] 29.4 s High 11.7-14.9 [facility] Comment on above: Order Comment: 411-2 Performed By: #### L 300.3900 ####[facility] [address] [place], [address](219) Prothrombin timeOrdered By: Carlos Cavazos on 04-21-2024 PT Coag (PPP) [Time] 29.4 s High 11.7-14.9 [facility] International normalized rat io (INR) calculationOrdered By: Kvng Crisostomo on 04-17-2024 INR Coag (Bld) [Relative time] 3.1 {INR} [facility] Prothrombin Time w/INRon INR Coag (PPP) [Relative time] 3.1 {INR} Normal [facility] Comment on above: Order Comment: 411.2 Performed By: #### L 300.3900 ####[facility] [address] [place], [place], [phone](714) Prothrombin timeOrdered By: Kvng Crisostomo on 04-17-2024 PT Coag (PPP) [Time] 31.3 s High 11.7-14.9 [facility] Comment on above: Order Comment: 411.2 Performed By: #### L 300.3900 ####[facility] [address] [place], [place], [phone](549) International normalized rat io (INR) calculationOrdered By: Kvng Crisostomo on 04-14-2024 INR Coag (Bld) [Relative time] 3.3 {INR} [facility] Prothrombin Time w/INRon INR Coag (PPP) [Relative time] 3.3 {INR} Normal [facility] Comment on above: Order Comment: 411.2 Performed By: #### L 300.3900 ####[facility] [address] [place], [address](246 PT Coag (PPP) [Time] 33.2 s High 11.7-14.9 [facility] Comment on above: Order Comment: 411.2 Performed By: #### L 300.3900 ####[facility] [address] [place], [place], [phone](461 Prothrombin timeOrdered By: Kvng Crisostomo on 04-14-2024 PT Coag (PPP) [Time] 33.2 s High 11.7-14.9 [facility] International normalized rat io (INR) calculationOrdered By: Kvng Crisostomo on 04-10-2024 INR Coag (Bld) [Relative time] 2.8 {INR} [facility] Prothrombin Time w/INRon INR Coag (PPP) [Relative time] 2.8 {INR} Normal [facility] Comment on above: Order Comment: 411.2 Performed By: #### L 300.3900 ####[facility] [address] [place], [address] PT Coag (PPP) [Time] 29.2 s High 11.7-14.9 [facility] Comment on above: Order Comment: 411.2 Performed By: #### L 300.3900 ####[facility] [address] [place], [place], [phone] Prothrombin timeOrdered By: Kvng Crisostomo on 04-10-2024 PT Coag (PPP) [Time] 29.2 s High 11.7-14.9 [facility] International normalized rat io (INR) calculationOrdered By: Carlos Cavazos on 04-07-2024 INR Coag (Bld) [Relative time] 2.7 {INR} [facility] Prothrombin Time w/INRon INR Coag (PPP) [Relative time] 2.7 {INR} Normal [facility] Comment on above: Order Comment: 411-2 Performed By: #### L 300.3900 ####[facility] [address], [address] PT Coag (PPP) [Time] 28.1 s High 11.7-14.9 [facility] Comment on above: Order Comment: 411-2 Performed By: #### L 300.3900 ####[facility] [address] [place], [place], [phone](920) Prothrombin timeOrdered By: Carlos Cavazos on 04-07-2024 PT Coag (PPP) [Time] 28.1 s High 11.7-14.9 [facility] International normalized rat io (INR) calculationOrdered By: Kvng Crisostomo on 04-04-2024 INR Coag (Bld) [Relative time] 2.8 {INR} [facility] Prothrombin Time w/INRon INR Coag (PPP) [Relative time] 2.8 {INR} Normal [facility] Comment on above: Order Comment: 411.2 Performed By: #### L 300.3900 ####[facility] [address] [place], [address] PT Coag (PPP) [Time] 28.9 s High 11.7-14.9 [facility] Comment on above: Order Comment: 411.2 Performed By: #### L 300.3900 ####[facility] [address] [place], [place], [phone] Prothrombin timeOrdered By: Kvng Crisostomo on 04-04-2024 PT Coag (PPP) [Time] 28.9 s High 11.7-14.9 [facility] International normalized rat io (INR) calculationOrdered By: Carlos Cavazos on 03-31-2024 INR Coag (Bld) [Relative time] 2.6 {INR} [facility] Prothrombin Time w/INRon INR Coag (PPP) [Relative time] 2.6 {INR} Normal [facility] Comment on above: Order Comment: 411-2 Performed By: #### L 300.3900 ####[facility] [address] [place], [address] PT Coag (PPP) [Time] 27.3 s High 11.7-14.9 [facility] Comment on above: Order Comment: 411-2 Performed By: #### L 300.3900 ####[facility] [address] [place], [place], [phone] Prothrombin timeOrdered By: Carlos Cavazos on 03-31-2024 PT Coag (PPP) [Time] 27.3 s High 11.7-14.9 [facility] International normalized rat io (INR) calculationOrdered By: [employer] on 03-27-2024 INR Coag (Bld) [Relative time] 2.2 {INR} [facility] Prothrombin Time w/INRon INR Coag (PPP) [Relative time] 2.2 {INR} Normal [facility] Comment on above: Order Comment: 411.2 Performed By: #### L 300.3900 ####[facility] [address] [place], [address] PT Coag (PPP) [Time] 24.3 s High 11.7-14.9 [facility] Comment on above: Order Comment: 411.2 Performed By: #### L 300.3900 ####[facility] [address] [place], [address] Prothrombin timeOrdered By: [employer] on 03-27-2024 PT Coag (PPP) [Time] 24.3 s High 11.7-14.9 [facility] International normalized rat io (INR) calculationOrdered By: Kvng Crisostomo on 03-24-2024 INR Coag (Bld) [Relative time] 1.8 {INR} [facility] Prothrombin Time w/INRon INR Coag (PPP) [Relative time] 1.8 {INR} Normal [facility] Comment on above: Order Comment: 411.2 Performed By: #### L 300.3900 ####[facility] [address] [place], [place], [phone] PT Coag (PPP) [Time] 20.7 s High 11.7-14.9 [facility] Comment on above: Order Comment: 411.2 Performed By: #### L 300.3900 ####[facility] [address] [place], [place], [phone](920) Prothrombin timeOrdered By: Kvng Crisostomo on 03-24-2024 PT Coag (PPP) [Time] 20.7 s High 11.7-14.9 [facility] International normalized rat io (INR) calculationOrdered By: [employer] on 03-20-2024 INR Coag (Bld) [Relative time] 1.8 {INR} [facility] Prothrombin Time w/INRon INR Coag (PPP) [Relative time] 1.8 {INR} Normal [facility] Comment on above: Order Comment: 411.2 Performed By: #### L 300.3900 ####[facility] [address] [place], [place], [phone](763) PT Coag (PPP) [Time] 20.9 s High 11.7-14.9 [facility] Comment on above: Order Comment: 411.2 Performed By: #### L 300.3900 ####[facility] [address] [place], [place], [phone] Prothrombin timeOrdered By: [employer] on 03-20-2024 PT Coag (PPP) [Time] 20.9 s High 11.7-14.9 [facility] International normalized rat io (INR) calculationOrdered By: Kvng Crisostomo on 03-19-2024 INR Coag (Bld) [Relative time] 2.4 {INR} [facility] Prothrombin Time w/INRon INR Coag (PPP) [Relative time] 2.4 {INR} Normal [facility] Comment on above: Order Comment: 411.2 Performed By: #### L 300.3900 ####[facility] [address] [place], [place], [phone] PT Coag (PPP) [Time] 26.4 s High 11.7-14.9 [facility] Comment on above: Order Comment: 411.2 Performed By: #### L 300.3900 ####[facility] [address] [place], [place], [phone] Prothrombin timeOrdered By: Kvng Crisostomo on 03-19-2024 PT Coag (PPP) [Time] 26.4 s High 11.7-14.9 [facility] International normalized rat io (INR) calculationOrdered By: [employer] on 03-18-2024 INR Coag (Bld) [Relative time] 3.2 {INR} [facility] Prothrombin Time w/INRon INR Coag (PPP) [Relative time] 3.2 {INR} Normal [facility] Comment on above: Order Comment: 411.2 Performed By: #### L 300.3900 ####[facility] [address] [place], [address] PT Coag (PPP) [Time] 32.3 s High 11.7-14.9 [facility] Comment on above: Order Comment: 411.2 Performed By: #### L 300.3900 ####[facility] [address] [place], [address] Prothrombin timeOrdered By: [employer] on 03-18-2024 PT Coag (PPP) [Time] 32.3 s High 11.7-14.9 [facility] International normalized rat io (INR) calculationOrdered By: [employer] on 03-17-2024 INR Coag (Bld) [Relative time] 3.6 {INR} [facility] Prothrombin Time w/INRon INR Coag (PPP) [Relative time] 3.6 {INR} Normal [facility] Comment on above: Order Comment: 411.2 Performed By: #### L 300.3900 ####[facility] [address] [place], [address] PT Coag (PPP) [Time] 35.7 s High 11.7-14.9 [facility] Comment on above: Order Comment: 411.2 Performed By: #### L 300.3900 ####[facility] [address] [place], [address] Prothrombin timeOrdered By: [employer] on 03-17-2024 PT Coag (PPP) [Time] 35.7 s High 11.7-14.9 [facility] International normalized rat io (INR) calculationOrdered By: Carlos Cavazos on 03-14-2024 INR Coag (Bld) [Relative time] 3.5 {INR} [facility] Prothrombin Time w/INRon INR Coag (PPP) [Relative time] 3.5 {INR} Normal [facility] Comment on above: Order Comment: 411-2 Performed By: #### L 300.3900 ####[facility] [address] [place], [address] PT Coag (PPP) [Time] 35.0 s High 11.7-14.9 [facility] Comment on above: Order Comment: 411-2 Performed By: #### L 300.3900 ####[facility] [address] [place], [address] Prothrombin timeOrdered By: Carlos Cavazos on 03-14-2024 PT Coag (PPP) [Time] 35.0 s High 11.7-14.9 [facility] International normalized rat io (INR) calculationOrdered By: [employer] on 03-13-2024 INR Coag (Bld) [Relative time] 3.2 {INR} [facility] Prothrombin Time w/INRon INR Coag (PPP) [Relative time] 3.2 {INR} Normal [facility] Comment on above: Performed By: #### L 300.3900 ####[facility] [address] [place], [place], [address] PT Coag (PPP) [Time] 32.2 s High 11.7-14.9 [facility] Comment on above: Performed By: #### L 300.3900 ####[facility] [address] [place], [place], [address] Prothrombin timeOrdered By: [employer] on 03-13-2024 PT Coag (PPP) [Time] 32.2 s High 11.7-14.9 [facility] Prothrombin Time w/INRon INR Coag (PPP) [Relative time] 2.6 {INR} Normal [facility] Comment on above: Order Comment: 411.2 Performed By: #### L 300.3900 ####[facility] [address] [place], [place], [address] PT Coag (PPP) [Time] 27.7 s High 11.7-14.9 [facility] Comment on above: Order Comment: 411.2 Performed By: #### L 300.3900 ####[facility] [address] [place], [place], [address] Office Visiton 09-13-2023 Follow-up visit [id number] Tamie Sifuentes cheng Gonzalez 1950 M Pasha Provider Department Center 09/13/2023 REBECCA [facility] URO None Family History Problem Relation Age of Onset Heart disease Father Cancer Mother Family Status - Relation Status Age at Father Mother Level of Service:50710 [place] OFFICE/OUTPATIENT ESTABLISHED MOD MDM 30 MIN Reason for Visit and Comments: left flank pain [Other] - 8/10 pain when touched Normal [facility] Progress Noteon 09-13-2023 Progress Note Walt [...] Hydrocephalus, adult (CMS/HCC) (HCC) Kidney stone Neuropathy RN INVASIVE (ventriculoperitoneal) shunt status Past Surgical History: Procedure [...] (more content not included)... Normal [facility] CT ABDOMEN PELVIS WO IV CONT Kelly 09-07-2023 CT ABDOMEN PELVIS WO IV CONTRAST Patient Name: ANDREW [facility] 1950 [id number] Exam Date/Time: 09/06/2023 18:14 Procedure: CT ABDOMEN [...] kidney stone; pt has a hernia [facility] 3608-29-2023 36 Lm on daughters vm t o advise them to call the number for the pharmacy benefit manager to get clarification, and to call back with further questions [place] 5506208-27-2023 36 Yes, they will need to call the number given to them. [facility] 36 Please advise [address] 08-21-2023 36 Name of caller: Zion holt Contact phone number: [phone] Relationship to Patient: patient Provider: MD Quinn Practice: [facility] Urology Chief Complaint/Reason for Call: Shanthi called [...] to reach out to call Maury Cedeño Health Sciences Manager at [facility] [phone] to get clarifications. TEA did reach back out to [facility] and advised and provider Maury's #. Please advise Best time of day caller can be reached: Any Patient advised that office/PCP has 24-48 business hours to return their call: N/A Normal [facility] Laboratory - CoagulationOrde red By: Carlos Cavazos on 08-21-2023 INR Coag (Bld) [Relative time] 2.7 {INR} [facility] PT Coag (PPP) [Time] 28.9 s 11.7-14.9 [facility] Office Visiton 08-13-2023 Follow-up visit [id number] Tamie Sifuentes cheng R 1950 M Date Provider Department Center 08/13/2023 [id number] BUCK [facility] URO None Family History Problem Relation Age of Onset Heart disease Father Cancer Mother Family Status - Relation Status Age at Father Mother Level of Service:93858 [place] OFFICE/OUTPATIENT NEW MODERATE MDM 45 MINUTES Reason for Visit and Comments: New Patient [542] - Bilateral flank pain, hx of kidney stones Nephrolithiasis [636595] Normal [facility] Progress Noteon 08-13-2023 Progress Note Walt [...] Hydrocephalus, adult (CMS/HCC) (HCC) 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 Normal [facility] No Panel InformationOrdered By: Carlos Cavazos on 08-03-2023 Levetiracetam (Keppra) Level 32.4 ug/mL 10.0-40.[address] [facility] Comment on above: Performed at: [address] [id number] Director: Alpesh Vázquez MD, Phone: [phone] Basophil percentageOrdered B y: Carlos Cavazos on 07-20-2023 Chloride [Moles/Vol] 106 mmol/L 98-107 [facility] Glucose [Mass/Vol] 98 mg/dL 74-106 [facility] Hemoglobin (Bld) [Mass/Vol] 12.5 g/dL 13.0-16.[address] [facility] Potassium [Moles/Vol] 4.3 mmol/L 3.5-5.1 [facility] Sodium [Moles/Vol] 135 mmol/L 136-145 [facility] WBC (Bld) [#/Vol] 13.0 10*3/uL 4.4-11.0 [facility] Determination of erythrocyte mean corpuscular volume (MCV)Ordered By: Carlos Cavazos on 07-20-2023 MCV (RBC) [Entitic vol] 86.2 fL 80-[address] [facility] Erythrocyte distribution wid th ratioOrdered By: Carlos Cavazos on 07-20-2023 Erythrocyte distribution width (RBC) [Ratio] 15.3 % 11.6-14.[address] [facility] Erythrocyte distribution wid th standard deviationOrdered By: Carlos Cavazos on 07-20-2023 Erythrocyte distribution width (RBC) [Entitic vol] 48.1 fL 35.1-43.[address] [facility] Hematocrit Auto (Bld) [Volum e fraction]Ordered By: Carlos Cavazos on 07-20-2023 Hematocrit (Bld) [Volume fraction] 39.9 % 40-[address] [facility] Laboratory - Chemistry and C hemistry - challengeOrdered By: Carlos Cavazos on 07-20-2023 CO2 [Moles/Vol] 24.0 mmol/L 21.0-32.[address] [facility] Urea nitrogen/Creatinine [Mass ratio] 24.6 mg/mg 10-[address] [facility] Laboratory - Hematology and Cell countsOrdered By: Carlos Cavazos on 07-20-2023 MCH (RBC) [Entitic mass] 27.0 pg 27.0-32.[address] [facility] MCHC (RBC) [Mass/Vol] 31.3 g/dL 32-36 [facility] Platelet mean volume (Bld) [Entitic vol] 10.7 fL 6.2-12.[address] [facility] Platelets (Bld) [#/Vol] 260 10*3/uL 150-[address] [facility] No Panel InformationOrdered By: Carlos Cavazos on 07-20-2023 Estimated GFR (MDRD) Amer 114 mL/min >[address] [facility] Comment on above: GFR Calc Estimated GFR (MDRD) Non-Af Amer 94 mL/min >[address] [facility] Comment on above: Non- GFR Calc RBC Auto (Bld) [#/Vol]Ordere d By: Carlos Cavazos on 07-20-2023 RBC (Bld) [#/Vol] 4.63 10*6/uL 4.6-6.2 [facility] Serum or plasma calcium oral urement (mass/volume)Ordered By: Carlos Cavazos on 07-20-2023 Calcium [Mass/Vol] 8.6 mg/dL 8.5-10.1 [facility] Serum or plasma creatinine m easurement (mass/volume)Ordered By: Carlos Cavazos on 07-20-2023 Creatinine [Mass/Vol] 0.85 mg/dL 0.70-1.30 [facility] Comment on above: The validity of the calculated GFR & GFRAA in patients over 70 years has not been determined. Clinical correlation is essential. Serum or plasma urea nitroge n measurement (mass/volume)Ordered By: Carlos Cavazos on 07-20-2023 Urea nitrogen [Mass/Vol] 21 mg/dL 7-[address] [facility] Thin prep Papanicolaou smear with manual screeningOrdered By: Carlos Cavazos on 07-20-2023 Thin prep Papanicolaou smear with manual screening 5 5-[address] [facility] Basophil percentageOrdered B y: Carlos Cavazos on 07-18-2023 Chloride [Moles/Vol] 102 mmol/L 98-107 [facility] Glucose [Mass/Vol] 96 mg/dL 74-106 [facility] Hemoglobin (Bld) [Mass/Vol] 12.3 g/dL 13.0-16.[address] [facility] Potassium [Moles/Vol] 4.2 mmol/L 3.5-5.1 [facility] Sodium [Moles/Vol] 136 mmol/L 136-145 [facility] WBC (Bld) [#/Vol] 14.7 10*3/uL 4.4-11.0 [facility] Determination of erythrocyte mean corpuscular volume (MCV)Ordered By: Carlos Cavazos on 07-18-2023 MCV (RBC) [Entitic vol] 85.4 fL 80-[address] [facility] Erythrocyte distribution wid th ratioOrdered By: Carlos Cavazos on 07-18-2023 Erythrocyte distribution width (RBC) [Ratio] 15.1 % 11.6-14.[address] [facility] Erythrocyte distribution wid th standard deviationOrdered By: Carlos Cavazos on 07-18-2023 Erythrocyte distribution width (RBC) [Entitic vol] 47.3 fL 35.1-43.[address] [facility] Hematocrit Auto (Bld) [Volum e fraction]Ordered By: Carlos Cavazos on 07-18-2023 Hematocrit (Bld) [Volume fraction] 39.3 % 40-[address] [facility] Laboratory - Chemistry and C hemistry - challengeOrdered By: Carlos Cavazos on 07-18-2023 CO2 [Moles/Vol] 27.0 mmol/L 21.0-32.[address] [facility] Urea nitrogen/Creatinine [Mass ratio] 24.4 mg/mg 10-[address] [facility] Laboratory - Hematology and Cell countsOrdered By: Carlos Cavazos on 07-18-2023 MCH (RBC) [Entitic mass] 26.7 pg 27.0-32.[address] [facility] MCHC (RBC) [Mass/Vol] 31.3 g/dL 32-36 [facility] Platelet mean volume (Bld) [Entitic vol] 10.3 fL 6.2-12.[address] [facility] Platelets (Bld) [#/Vol] 288 10*3/uL 150-[address] [facility] No Panel InformationOrdered By: Carlos Cavazos on 07-18-2023 Estimated GFR (MDRD) Amer 113 mL/min >[address] [facility] Comment on above: GFR Calc Estimated GFR (MDRD) Non-Af Amer 93 mL/min >[address] [facility] Comment on above: Non- GFR Calc RBC Auto (Bld) [#/Vol]Ordere d By: Carlos Cavazos on 07-18-2023 RBC (Bld) [#/Vol] 4.60 10*6/uL 4.6-6.2 [facility] Serum or plasma calcium oral urement (mass/volume)Ordered By: Carlos Cavazos on 07-18-2023 Calcium [Mass/Vol] 8.9 mg/dL 8.5-10.1 [facility] Serum or plasma creatinine m easurement (mass/volume)Ordered By: Carlos Cavazos on 07-18-2023 Creatinine [Mass/Vol] 0.86 mg/dL 0.70-1.30 [facility] Comment on above: The validity of the calculated GFR & GFRAA in patients over 70 years has not been determined. Clinical correlation is essential. Serum or plasma urea nitroge n measurement (mass/volume)Ordered By: Carlos Cavazos on 07-18-2023 Urea nitrogen [Mass/Vol] 21 mg/dL 7-[address] [facility] Thin prep Papanicolaou smear with manual screeningOrdered By: Carlos Cavazos on 07-18-2023 Thin prep Papanicolaou smear with manual screening 7 5-[address] [facility] Basophil percentageOrdered B y: Carlos Cavazos on 07-17-2023 Basophil percentage 0-5 SEEN /hpf 0-5 [facility] Bilirubin Test strip Ql (U)O rdered By: Carlos Cavazos on 07-17-2023 Bilirubin Ql (U) Negative Negative [facility] Calcium oxalate crystals det ection in urine sediment by light microscopyOrdered By: Carlos Cavazos on 07-17-2023 Calcium oxalate crystals LM Ql (Urine sed) 1+ /hpf [facility] Culture, urineOrdered By: Sharif Crouch on 07-17-2023 Bacteria identified Cx Nom (U) Positive [facility] Ketones Test strip Ql (U)Ord ered By: Carlos Cavazos on 07-17-2023 Ketones Ql (U) Negative Negative [facility] Mucus LM Ql (Urine sed)Order ed By: Carlos Cavazos on 07-17-2023 Mucus Ql (Urine sed) 0 SEEN /hpf [facility] Nitrite Test strip Ql (U)Ord ered By: Carlos Cavazos on 07-17-2023 Nitrite Ql (U) Negative Negative [facility] No Panel InformationOrdered By: Carlos Cavazos on 07-17-2023 Urine RBC 0 SEEN /hpf 0-[address] [facility] Protein Test strip Ql (U)Ord ered By: Carlos Cavazos on 07-17-2023 Protein Ql (U) Negative Negative [facility] Squamous epithelial cells de tection in urine sediment by light microscopyOrdered By: aCrlos Cavazos on 07-17-2023 Epithelial cells.squamous LM Ql (Urine sed) 0-5 SEEN /hpf 0-[address] [facility] Urine blood detectionOrdered By: Carlos Cavazos on 07-17-2023 RBC Ql (U) Negative Negative [facility] Urine clarityOrdered By: Ted Cavazos on 07-17-2023 Clarity (U) Clear Clear [facility] Urine color determinationOrd ered By: Carlos Cavazos on 07-17-2023 Color (U) Yellow Yellow [facility] Urine glucose detectionOrder ed By: Carlos Cavazos on 07-17-2023 Glucose Ql (U) Normal mg/dl Normal [facility] Urine leukocyte esterase det ection by dipstickOrdered By: Carlos Cavazos on 07-17-2023 Leukocyte esterase Test strip Ql (U) 25 /ul Negative [facility] Urine pHOrdered By: Carlos flores on 07-17-2023 pH (U) 6.0 [pH] 5.0 - 8.[address] [facility] Urine sediment bacteria coun t by microscopy (number/high power field)Ordered By: Carlos Cavazos on 07-17-2023 Bacteria LM.HPF (Urine sed) [#/Area] 0 /[HPF] None Seen [facility] Urine specific gravity measu rementOrdered By: Carlos Cavazos on 07-17-2023 Specific gravity (U) [Rel density] 1.020 1.002-1.[address] [facility] Urine urobilinogen measureme ntOrdered By: Carlos Cavazos on 07-17-2023 Urobilinogen Ql (U) Normal mg/dl Normal [facility] Absolute lymphocyte countOrd ered By: Carlos Cavazos on 07-16-2023 Lymphocytes Auto (Unsp spec) [#/Vol] 6.02 10*3/uL 0.83-4.[address] [facility] Automated lymphocyte count a s percentage of total leukocytesOrdered By: Carlos Cavazos on 07-16-2023 Lymphocytes/100 WBC Auto (Unsp spec) 49.1 % 19-[address] [facility] Basophil percentageOrdered B y: Carlos Cavazos on 07-16-2023 Basophils/100 WBC (Bld) 0.6 % 0-[address] [facility] Chloride [Moles/Vol] 105 mmol/L 98-107 [facility] Eosinophils/100 WBC (Bld) 2.0 % 0-[address] [facility] Glucose [Mass/Vol] 93 mg/dL 74-106 [facility] Hemoglobin (Bld) [Mass/Vol] 12.1 g/dL 13.0-16.[address] [facility] Monocytes/100 WBC (Bld) 5.3 % 0-[address] [facility] Neutrophils (Bld) [#/Vol] 5.2 10*3/uL 2.0-7.[address] [facility] Neutrophils/100 WBC (Bld) 42.8 % 47-[address] [facility] Potassium [Moles/Vol] 4.3 mmol/L 3.5-5.1 [facility] Sodium [Moles/Vol] 138 mmol/L 136-145 [facility] WBC (Bld) [#/Vol] 12.3 10*3/uL 4.4-11.0 [facility] Blood manual differential co mment interpretation (narrative result)Ordered By: Carlos Cavazos on 07-16-2023 Manual differential comment Shemar (Bld) [Interp] SCANNED [facility] Determination of erythrocyte mean corpuscular volume (MCV)Ordered By: Carlos Cavazos on 07-16-2023 MCV (RBC) [Entitic vol] 86.8 fL 80-[address] [facility] Erythrocyte distribution wid th ratioOrdered By: Carlos Cavazos on 07-16-2023 Erythrocyte distribution width (RBC) [Ratio] 15.3 % 11.6-14.[address] [facility] Erythrocyte distribution wid th standard deviationOrdered By: Carlos Cavazos on 07-16-2023 Erythrocyte distribution width (RBC) [Entitic vol] 48.9 fL 35.1-43.[address] [facility] Hematocrit Auto (Bld) [Volum e fraction]Ordered By: Carlos Cavazos on 07-16-2023 Hematocrit (Bld) [Volume fraction] 38.7 % 40-[address] [facility] Immature granulocytes/100 WB C Auto (Bld)Ordered By: Carlos Cavazos on 07-16-2023 Immature granulocytes/100 WBC (Bld) 0.200 % 0.0-0.[address] [facility] Comment on above: IG% - Immature Granu locytes (promyelocytes, myelocytes and metamyelocytes) > 1% indicates that a LEFT SHIFT is Present. Laboratory - Chemistry and C hemistry - challengeOrdered By: Carlos Cavazos on 07-16-2023 CO2 [Moles/Vol] 25.0 mmol/L 21.0-32.[address] [facility] Urea nitrogen/Creatinine [Mass ratio] 21.0 mg/mg 10-[address] [facility] Laboratory - CoagulationOrde red By: Carlos Cavazos on 07-16-2023 INR Coag (Bld) [Relative time] 2.4 {INR} [facility] PT Coag (PPP) [Time] 25.7 s 11.7-14.9 [facility] Laboratory - Hematology and Cell countsOrdered By: Carlos Cavazos on 07-16-2023 MCH (RBC) [Entitic mass] 27.1 pg 27.0-32.[address] [facility] MCHC (RBC) [Mass/Vol] 31.3 g/dL 32-36 [facility] Nucleated RBC/100 WBC (Bld) [Ratio] 0 % 0-[address] [facility] Platelet mean volume (Bld) [Entitic vol] 10.5 fL 6.2-12.[address] [facility] Platelets (Bld) [#/Vol] 289 10*3/uL 150-[address] [facility] No Panel InformationOrdered By: Carlos Cavazos on 07-16-2023 Estimated GFR (MDRD) Amer 106 mL/min >[address] [facility] Comment on above: GFR Calc Estimated GFR (MDRD) Non-Af Amer 88 mL/min >[address] [facility] Comment on above: Non- GFR Calc Reactive Lymphocytes 1+ [facility] RBC Auto (Bld) [#/Vol]Ordere d By: Carlos Cavazos on 07-16-2023 RBC (Bld) [#/Vol] 4.46 10*6/uL 4.6-6.2 [facility] Serum or plasma calcium oral urement (mass/volume)Ordered By: Carlos Cavazos on 07-16-2023 Calcium [Mass/Vol] 9.0 mg/dL 8.5-10.1 [facility] Serum or plasma creatinine m easurement (mass/volume)Ordered By: Carlos Cavazos on 07-16-2023 Creatinine [Mass/Vol] 0.90 mg/dL 0.70-1.30 [facility] Comment on above: The validity of the calculated GFR & GFRAA in patients over 70 years has not been determined. Clinical correlation is essential. Serum or plasma urea nitroge n measurement (mass/volume)Ordered By: Carlos Cavazos on 07-16-2023 Urea nitrogen [Mass/Vol] 19 mg/dL 7-[address] [facility] Thin prep Papanicolaou smear with manual screeningOrdered By: Carlos Cavazos on 07-16-2023 Thin prep Papanicolaou smear with manual screening 8 5-[address] [facility] Absolute lymphocyte countOrd ered By: Carlos Cavazos on 07-13-2023 Lymphocytes Auto (Unsp spec) [#/Vol] 5.44 10*3/uL 0.83-4.[address] [facility] Automated lymphocyte count a s percentage of total leukocytesOrdered By: Carlos Cavazos on 07-13-2023 Lymphocytes/100 WBC Auto (Unsp spec) 47.3 % 19-[address] [facility] Basophil percentageOrdered B y: Carlos Cavazos on 07-13-2023 Basophils/100 WBC (Bld) 0.4 % 0-[address] [facility] Chloride [Moles/Vol] 107 mmol/L 98-107 [facility] Eosinophils/100 WBC (Bld) 1.7 % 0-[address] [facility] Glucose [Mass/Vol] 96 mg/dL 74-106 [facility] Hemoglobin (Bld) [Mass/Vol] 13.5 g/dL 13.0-16.[address] [facility] Monocytes/100 WBC (Bld) 4.3 % 0-[address] [facility] Neutrophils (Bld) [#/Vol] 5.3 10*3/uL 2.0-7.[address] [facility] Neutrophils/100 WBC (Bld) 46.0 % 47-[address] [facility] Potassium [Moles/Vol] 4.0 mmol/L 3.5-5.1 [facility] Sodium [Moles/Vol] 139 mmol/L 136-145 [facility] WBC (Bld) [#/Vol] 11.5 10*3/uL 4.4-11.0 [facility] Determination of erythrocyte mean corpuscular volume (MCV)Ordered By: Carlos Cavazos on 07-13-2023 MCV (RBC) [Entitic vol] 86.1 fL 80-[address] [facility] Erythrocyte distribution wid th ratioOrdered By: Carlos Cavazos on 07-13-2023 Erythrocyte distribution width (RBC) [Ratio] 15.2 % 11.6-14.[address] [facility] Erythrocyte distribution wid th standard deviationOrdered By: Carlos Cavazos on 07-13-2023 Erythrocyte distribution width (RBC) [Entitic vol] 48.0 fL 35.1-43.[address] [facility] Hematocrit Auto (Bld) [Volum e fraction]Ordered By: Carlos Cavazos on 07-13-2023 Hematocrit (Bld) [Volume fraction] 42.2 % 40-[address] [facility] Immature granulocytes/100 WB C Auto (Bld)Ordered By: Carlos Cavazos on 07-13-2023 Immature granulocytes/100 WBC (Bld) 0.300 % 0.0-0.[address] [facility] Comment on above: IG% - Immature Granu locytes (promyelocytes, myelocytes and metamyelocytes) > 1% indicates that a LEFT SHIFT is Present. Laboratory - Chemistry and C hemistry - challengeOrdered By: Carlos Cavazos on 07-13-2023 CO2 [Moles/Vol] 26.0 mmol/L 21.0-32.[address] [facility] Urea nitrogen/Creatinine [Mass ratio] 21.8 mg/mg 10-[address] [facility] Laboratory - Hematology and Cell countsOrdered By: Carlos Cavazos on 07-13-2023 MCH (RBC) [Entitic mass] 27.6 pg 27.0-32.[address] [facility] MCHC (RBC) [Mass/Vol] 32.0 g/dL 32-36 [facility] Nucleated RBC/100 WBC (Bld) [Ratio] 0 % 0-[address] [facility] Platelet mean volume (Bld) [Entitic vol] 10.1 fL 6.2-12.[address] [facility] Platelets (Bld) [#/Vol] 279 10*3/uL 150-[address] [facility] No Panel InformationOrdered By: Carlos Cavazos on 07-13-2023 Estimated GFR (MDRD) Amer 118 mL/min >[address] [facility] Comment on above: GFR Calc Estimated GFR (MDRD) Non-Af Amer 98 mL/min >[address] [facility] Comment on above: Non- GFR Calc Levetiracetam (Keppra) Level 25.5 ug/mL 10.0-40.[address] [facility] Comment on above: Performed at: [address] [id number] Director: Alpesh Vázquez MD, Phone: [phone] RBC Auto (Bld) [#/Vol]Ordere d By: Carlos Cavazos on 07-13-2023 RBC (Bld) [#/Vol] 4.90 10*6/uL 4.6-6.2 [facility] Serum or plasma calcium oral urement (mass/volume)Ordered By: Carlos Cavazos on 07-13-2023 Calcium [Mass/Vol] 9.1 mg/dL 8.5-10.1 [facility] Serum or plasma creatinine m easurement (mass/volume)Ordered By: Carlos Cavazos on 07-13-2023 Creatinine [Mass/Vol] 0.82 mg/dL 0.70-1.30 [facility] Comment on above: The validity of the calculated GFR & GFRAA in patients over 70 years has not been determined. Clinical correlation is essential. Serum or plasma urea nitroge n measurement (mass/volume)Ordered By: Carlos Cavazos on 07-13-2023 Urea nitrogen [Mass/Vol] 18 mg/dL 7-[address] [facility] Thin prep Papanicolaou smear with manual screeningOrdered By: Carlos Cavazos on 07-13-2023 Thin prep Papanicolaou smear with manual screening 6 5-[address] [facility] No Panel InformationOrdered By: Carlos Cavazos on 07-12-2023 Valproic Acid (Depakene) Level < 3 ug/mL 50-[address] [facility] Laboratory - CoagulationOrde red By: Carlos Cavazos on 07-05-2023 INR Coag (Bld) [Relative time] 2.4 {INR} [facility] PT Coag (PPP) [Time] 26.3 s 11.7-14.9 [facility] Laboratory - CoagulationOrde red By: Carlos Cavazos on 07-02-2023 INR Coag (Bld) [Relative time] 1.5 {INR} [facility] PT Coag (PPP) [Time] 18.5 s 11.7-14.9 [facility] Laboratory - CoagulationOrde red By: Carlos Cavazos on 06-28-2023 INR Coag (Bld) [Relative time] 1.7 {INR} [facility] PT Coag (PPP) [Time] 20.5 s 11.7-14.9 [facility] 36on 06-25-2023 [facility] called in stating appt scheduled 07/10/23 Guy has to be made further out, pt being transported by cot. Changed appt to 08/13/23 per [facility] only avail time for transport, first avail with DR Buck at 10:00 AM. [facility] Laboratory - CoagulationOrde red By: Carlos Cavazos on 06-25-2023 INR Coag (Bld) [Relative time] 3.8 {INR} [facility] PT Coag (PPP) [Time] 38.2 s 11.7-14.9 [facility] Laboratory - CoagulationOrde red By: Carlos Cavazos on 06-21-2023 INR Coag (Bld) [Relative time] 3.2 {INR} [facility] PT Coag (PPP) [Time] 32.9 s 11.7-14.9 [facility] No Panel InformationOrdered By: Carlos Cavazos on 06-13-2023 Valproic Acid (Depakene) Level < 3 ug/mL 50-[address] [facility] Laboratory - CoagulationOrde red By: Carlos Cavazos on 06-06-2023 PT Coag (PPP) [Time] 30.5 s 11.7-14.9 [facility] Platelet poor plasma interna tional normalized ratio (INR)Ordered By: Carlos Cavazos on 06-06-2023 INR Coag (PPP) [Relative time] 2.9 {INR} [facility] International normalized rat io (INR) calculationOrdered By: Carlos Cavazos on 05-23-2023 INR Coag (PPP) [Relative time] 2.6 {INR} [facility] Laboratory - CoagulationOrde red By: Carlos Cavazos on 05-23-2023 PT Coag (PPP) [Time] 27.7 s 11.7-14.9 [facility] Laboratory - CoagulationOrde red By: Carlos Cavazos on 05-09-2023 PT Coag (PPP) [Time] 24.1 s 11.7-14.9 [facility] Whole blood international no rmalized ratio (INR)Ordered By: Carlos Cavazos on 05-09-2023 INR Coag (Bld) [Relative time] 2.1 {INR} [facility] Laboratory - CoagulationOrde red By: Carlos Cavazos on 04-23-2023 PT Coag (PPP) [Time] 26.4 s 11.7-14.9 [facility] Whole blood international no rmalized ratio (INR)Ordered By: Carlos Cavazos on 04-23-2023 INR Coag (Bld) [Relative time] 2.4 {INR} [facility] INR in Blood by Coagulation assayOrdered By: Carlos Cavazos on 04-09-2023 INR Coag (Bld) [Relative time] 2.1 {INR} [facility] Laboratory - CoagulationOrde red By: Carlos Cavazos on 04-09-2023 PT Coag (PPP) [Time] 23.9 s 11.7-14.9 [facility] INR in Blood by Coagulation assayOrdered By: Carlos Cavazos on 04-02-2023 INR Coag (Bld) [Relative time] 2.2 {INR} [facility] Laboratory - CoagulationOrde red By: Carlos Cavazos on 04-02-2023 PT Coag (PPP) [Time] 24.5 s 11.7-14.9 [facility] INR in Blood by Coagulation assayOrdered By: Carlos Cavazos on 03-26-2023 INR Coag (Bld) [Relative time] 1.7 {INR} [facility] Laboratory - CoagulationOrde red By: Carlos Cavazos on 03-26-2023 PT Coag (PPP) [Time] 19.9 s 11.7-14.9 [facility] INR in Blood by Coagulation assayOrdered By: Carlos Cavazos on 03-22-2023 INR Coag (Bld) [Relative time] 1.3 {INR} [facility] Laboratory - CoagulationOrde red By: Carlos Cavazos on 03-22-2023 PT Coag (PPP) [Time] 16.4 s 11.7-14.9 [facility] INR in Blood by Coagulation assayOrdered By: Carlos Cavazos on 03-08-2023 INR Coag (Bld) [Relative time] 2.0 {INR} [facility] Laboratory - CoagulationOrde red By: Carlos Cavazos on 03-08-2023 PT Coag (PPP) [Time] 22.5 s 11.7-14.9 [facility] Laboratory - CoagulationOrde red By: Carlos Cavazos on 02-22-2023 INR Coag (Bld) [Relative time] 2.2 {INR} [facility] Comment on above: Critical Value > 4.0 Whole blood prothrombin time Ordered By: Carlos Cavazos on 02-22-2023 PT Coag (Bld) [Time] 24.0 s 11.7-14.9 [facility] INR in Blood by Coagulation assayOrdered By: Cliff Bruner on 02-15-2023 INR Coag (Bld) [Relative time] 2.0 {INR} [facility] Laboratory - CoagulationOrde red By: Cliff Bruner on 02-15-2023 PT Coag (PPP) [Time] 22.8 s 11.7-14.9 [facility] INR in Blood by Coagulation assayOrdered By: Carlos Cavazos on 02-08-2023 INR Coag (Bld) [Relative time] 2.1 {INR} [facility] Laboratory - CoagulationOrde red By: Carlos Cavazos on 02-08-2023 PT Coag (PPP) [Time] 23.5 s 11.7-14.9 [facility] INR in Blood by Coagulation assayOrdered By: Carlos Cavazos on 01-31-2023 INR Coag (Bld) [Relative time] 2.0 {INR} [facility] Laboratory - CoagulationOrde red By: Carlos Cavazos on 01-31-2023 PT Coag (PPP) [Time] 22.4 s 11.7-14.9 [facility] Laboratory - CoagulationOrde red By: Carlos Cavazos on 01-29-2023 INR Coag (Bld) [Relative time] 1.8 {INR} [facility] Comment on above: Critical Value > 4.0 Whole blood prothrombin time Ordered By: Carlos Cavazos on 01-29-2023 PT Coag (Bld) [Time] 19.9 s 11.7-14.9 [facility] INR in Blood by Coagulation assayOrdered By: Carlos Cavazos on 01-26-2023 INR Coag (Bld) [Relative time] 1.5 {INR} [facility] Laboratory - CoagulationOrde red By: Carlos Cavazos on 01-26-2023 PT Coag (PPP) [Time] 18.3 s 11.7-14.9 [facility] INR in Blood by Coagulation assayOrdered By: Carlos Cavazos on 01-24-2023 INR Coag (Bld) [Relative time] 1.3 {INR} [facility] Laboratory - CoagulationOrde red By: Carlos Cavazos on 01-24-2023 PT Coag (PPP) [Time] 16.2 s 11.7-14.9 [facility] Basophil percentageOrdered B y: Carlos Cavazos on 01-22-2023 Basophil percentage 0 SEEN /hpf 0-5 [facility] Bilirubin Test strip Ql (U)O rdered By: Carlos Cavazos on 01-22-2023 Bilirubin Ql (U) Negative Negative [facility] Calcium oxalate crystals det ection in urine sediment by light microscopyOrdered By: Carlos Cavazos on 01-22-2023 Calcium oxalate crystals LM Ql (Urine sed) 1+ /hpf [facility] Culture, urineOrdered By: Sharif Crouch on 01-22-2023 Bacteria identified Cx Nom (U) Positive [facility] Ketones Test strip Ql (U)Ord ered By: Carlos Cavazos on 01-22-2023 Ketones Ql (U) Negative Negative [facility] Mucus LM Ql (Urine sed)Order ed By: Carlos Cavazos on 01-22-2023 Mucus Ql (Urine sed) 1+ /hpf [facility] Nitrite Test strip Ql (U)Ord ered By: Carlos Cavazos on 01-22-2023 Nitrite Ql (U) Negative Negative [facility] Protein Test strip Ql (U)Ord ered By: Carlos Cavazos on 01-22-2023 Protein Ql (U) Negative Negative [facility] Squamous epithelial cells de tection in urine sediment by light microscopyOrdered By: Carlos Cavazos on 01-22-2023 Epithelial cells.squamous LM Ql (Urine sed) 0 SEEN /hpf 0-[address] [facility] Urine blood detectionOrdered By: Carlos Cavazos on 01-22-2023 RBC Ql (U) Negative Negative [facility] RBC Ql (U) 0 SEEN /hpf 0-[address] [facility] Urine clarityOrdered By: Ted Cavazos on 01-22-2023 Clarity (U) Sl. Cloudy Clear [facility] Urine color determinationOrd ered By: Carlos Cavazos on 01-22-2023 Color (U) Yellow Yellow [facility] Urine glucose detectionOrder ed By: Carlos Cavazos on 01-22-2023 Glucose Ql (U) Normal mg/dl Normal [facility] Urine leukocyte esterase det ection by dipstickOrdered By: Carlos Cavazos on 01-22-2023 Leukocyte esterase Test strip Ql (U) Negative Negative [facility] Urine pHOrdered By: Carlos flores on 01-22-2023 pH (U) 5.0 [pH] 5.0 - 8.[address] [facility] Urine sediment bacteria coun t by microscopy (number/high power field)Ordered By: Carlos Cavazos on 01-22-2023 Bacteria LM.HPF (Urine sed) [#/Area] 2 /[HPF] None Seen [facility] Urine specific gravity measu rementOrdered By: Carlos Cavazos on 01-22-2023 Specific gravity (U) [Rel density] 1.025 1.002-1.[address] [facility] Urobilinogen Auto test strip Ql (U)Ordered By: Carols Cavazos on 01-22-2023 Urobilinogen Ql (U) Normal mg/dl Normal [facility] INR in Blood by Coagulation assayOrdered By: Carlos Cavazos on 01-10-2023 INR Coag (Bld) [Relative time] 2.0 {INR} [facility] Laboratory - CoagulationOrde red By: Carlos Cavazos on 01-10-2023 PT Coag (PPP) [Time] 22.6 s 11.7-14.9 [facility] INR in Blood by Coagulation assayOrdered By: Carlos Cavazos on 12-27-2022 INR Coag (Bld) [Relative time] 2.1 {INR} [facility] - CoagulationOrde red By: Carlos Cavazos on 12-27-2022 PT Coag (PPP) [Time] 24.1 s 11.7-14.9 [facility] INR in Blood by Coagulation assayOrdered By: Carlos Cavazos on 12-21-2022 INR Coag (Bld) [Relative time] 2.4 {INR} [facility] - CoagulationOrde red By: Carlos Cavazos on 12-21-2022 PT Coag (PPP) [Time] 26.7 s 11.7-14.9 [facility] Laboratory - CoagulationOrde red By: Carlos Cavazos on 12-14-2022 INR Coag (Bld) [Relative time] 2.3 {INR} [facility] Comment on above: Critical Value > 4.0 Whole blood prothrombin time Ordered By: Carlos Cavazos on 12-14-2022 PT Coag (Bld) [Time] 25.2 s 11.7-14.9 [facility] Laboratory - CoagulationOrde red By: Carlos Cavazos on 12-07-2022 INR Coag (Bld) [Relative time] 2.5 {INR} [facility] Comment on above: Critical Value > 4.0 Whole blood prothrombin time Ordered By: Carlos Cavazos on 12-07-2022 PT Coag (Bld) [Time] 26.9 s 11.7-14.9 [facility] Amorphous sediment detection in urine sediment by light microscopyOrdered By: Carlos Cavazos on 11-24-2022 Amorphous sediment LM Ql (Urine sed) 1+ [facility] Basophil percentageOrdered B y: Carlos Cavazos on 11-24-2022 Basophil percentage 0 SEEN /hpf 0-5 [facility] Bilirubin [Mass/Vol] 0.30 mg/dL 0.20-1.00 [facility] Comment on above: For patients on eltr ombopag therapy, use of Dimension [place] TBIL is not recommended. Chloride [Moles/Vol] 107 mmol/L 98-107 [facility] Glucose [Mass/Vol] 95 mg/dL 74-106 [facility] Potassium [Moles/Vol] 4.2 mmol/L 3.5-5.1 [facility] Protein [Mass/Vol] 6.9 g/dL 6.4-8.2 [facility] Sodium [Moles/Vol] 138 mmol/L 136-145 [facility] WBC (Bld) [#/Vol] 10.4 10*3/uL 4.4-11.0 [facility] Bilirubin Test strip Ql (U)O rdered By: Carlos Cavazos on 11-24-2022 Bilirubin Ql (U) Negative Negative [facility] Blood erythrocytes count (nu mber/volume)Ordered By: Carlos Cavazos on 11-24-2022 RBC (Bld) [#/Vol] 4.44 10*6/uL 4.6-6.2 [facility] Blood hemoglobin measurement (mass/volume)Ordered By: Carlos Cavazos on 11-24-2022 Hemoglobin (Bld) [Mass/Vol] 11.8 g/dL 13.0-16.[address] [facility] Blood platelet mean volumeOr dered By: Carlos Cavazos on 11-24-2022 Platelet mean volume (Bld) [Entitic vol] 9.7 fL 6.2-12.[address] [facility] Calcium oxalate crystals det ection in urine sediment by light microscopyOrdered By: Carlos Cavazos on 11-24-2022 Calcium oxalate crystals LM Ql (Urine sed) RARE /hpf [facility] Culture, urineOrdered By: Sharif Crouch on 11-24-2022 Bacteria identified Cx Nom (U) Positive [facility] Determination of erythrocyte mean corpuscular volume (MCV)Ordered By: Carlos Cavazos on 11-24-2022 MCV (RBC) [Entitic vol] 84.7 fL 80-[address] [facility] Hematocrit Auto (Bld) [Volum e fraction]Ordered By: Carlos Cavazos on 11-24-2022 Hematocrit (Bld) [Volume fraction] 37.6 % 40-[address] [facility] Ketones Test strip Ql (U)Ord ered By: Carlos Cavazos on 11-24-2022 Ketones Ql (U) Negative Negative [facility] Laboratory - Chemistry and C hemistry - challengeOrdered By: Carlos Cavazos on 11-24-2022 ALP [Catalytic activity/Vol] 103 U/L 45-[address] [facility] ALT [Catalytic activity/Vol] 14 U/L 16-[address] [facility] CO2 [Moles/Vol] 26.0 mmol/L 21.0-32.[address] [facility] Globulin (S) [Mass/Vol] 4.0 g/dL 2.2-4.[address] [facility] Urea nitrogen/Creatinine [Mass ratio] 24.1 mg/mg 10-[address] [facility] Laboratory - Hematology and Cell countsOrdered By: Carlos Cavazos on 11-24-2022 Erythrocyte distribution width (RBC) [Entitic vol] 49.4 fL 35.1-43.[address] [facility] Erythrocyte distribution width (RBC) [Ratio] 16.0 % 11.6-14.[address] [facility] MCH (RBC) [Entitic mass] 26.6 pg 27.0-32.[address] [facility] MCHC Auto (RBC) [Mass/Vol]Or dered By: Carlos Cavazos on 11-24-2022 MCHC (RBC) [Mass/Vol] 31.4 g/dL 32-36 [facility] Mucus LM Ql (Urine sed)Order ed By: Carlos Cavazos on 11-24-2022 Mucus Ql (Urine sed) 0 SEEN /hpf [facility] Nitrite Test strip Ql (U)Ord ered By: Carlos Cavazos on 11-24-2022 Nitrite Ql (U) Negative Negative [facility] No Panel InformationOrdered By: Carlos Cavazos on 11-24-2022 Estimated GFR (MDRD) Amer 118 mL/min >[address] [facility] Comment on above: GFR Calc Estimated GFR (MDRD) Non-Af Amer 97 mL/min >[address] [facility] Comment on above: Non- GFR Calc Platelets bldOrdered By: Ted Cavazos on 11-24-2022 Platelets (Bld) [#/Vol] 309 10*3/uL 150-[address] [facility] Protein Test strip Ql (U)Ord ered By: Carlos Cavazos on 11-24-2022 Protein Ql (U) Negative Negative [facility] Serum or plasma albumin oral urement (mass/volume)Ordered By: Carlos Cavazos on 11-24-2022 Albumin [Mass/Vol] 2.9 g/dL 3.2-5.0 [facility] Serum or plasma albumin/glob ulin mass ratioOrdered By: Carlos Cavazos on 11-24-2022 Albumin/Globulin [Mass ratio] 0.7 {ratio} 0.9-2.[address] [facility] Serum or plasma calcium oral urement (mass/volume)Ordered By: Carlos Cavazos on 11-24-2022 Calcium [Mass/Vol] 8.7 mg/dL 8.5-10.1 [facility] Serum or plasma creatinine m easurement (mass/volume)Ordered By: Carlos Cavazos on 11-24-2022 Creatinine [Mass/Vol] 0.83 mg/dL 0.70-1.30 [facility] Comment on above: The validity of the calculated GFR & GFRAA in patients over 70 years has not been determined. Clinical correlation is essential. Serum or plasma urea nitroge n measurement (mass/volume)Ordered By: Carlos Cavazos on 11-24-2022 Urea nitrogen [Mass/Vol] 20 mg/dL 7-[address] [facility] Squamous epithelial cells de tection in urine sediment by light microscopyOrdered By: Carlos Cavazos on 11-24-2022 Epithelial cells.squamous LM Ql (Urine sed) 0 SEEN /hpf 0-[address] [facility] Thin prep Papanicolaou smear with manual screeningOrdered By: Carlos Cavazos on 11-24-2022 Thin prep Papanicolaou smear with manual screening 10 U/L 15-[address] [facility] Thin prep Papanicolaou smear with manual screening 5 5-[address] [facility] Urine blood detectionOrdered By: Carlos Cavazos on 11-24-2022 RBC Ql (U) Negative Negative [facility] RBC Ql (U) 0 SEEN /hpf 0-[address] [facility] Urine clarityOrdered By: Ted Cavazos on 11-24-2022 Clarity (U) Clear Clear [facility] Urine color determinationOrd ered By: Carlos Cavazos on 11-24-2022 Color (U) Yellow Yellow [facility] Urine glucose detectionOrder ed By: Carlos Cavazos on 11-24-2022 Glucose Ql (U) Normal mg/dl Normal [facility] Urine leukocyte esterase det ection by dipstickOrdered By: Carlos Cavazos on 11-24-2022 Leukocyte esterase Test strip Ql (U) Negative Negative [facility] Urine pHOrdered By: Carlos flores on 11-24-2022 pH (U) 7.0 [pH] 5.0 - 8.[address] [facility] Urine sediment bacteria coun t by microscopy (number/high power field)Ordered By: Carlos Cavazos on 11-24-2022 Bacteria LM.HPF (Urine sed) [#/Area] 0 /[HPF] None Seen [facility] Urine specific gravity measu rementOrdered By: Carlos Cavazos on 11-24-2022 Specific gravity (U) [Rel density] 1.010 1.002-1.[address] [facility] Urobilinogen Auto test strip Ql (U)Ordered By: Carlos Cavazos on 11-24-2022 Urobilinogen Ql (U) Normal mg/dl Normal [facility] - CoagulationOrde red By: Carlos Cavazos on 11-23-2022 INR Coag (Bld) [Relative time] 2.2 {INR} [facility] Comment on above: Critical Value > 4.0 Whole blood prothrombin time Ordered By: Carlos Cavazos on 11-23-2022 PT Coag (Bld) [Time] 24.5 s 11.7-14.9 [facility] Basophil percentageOrdered B y: Carlos Cavazos on 11-22-2022 Chloride [Moles/Vol] 105 mmol/L 98-107 [facility] Glucose [Mass/Vol] 91 mg/dL 74-106 [facility] Potassium [Moles/Vol] 4.1 mmol/L 3.5-5.1 [facility] Sodium [Moles/Vol] 138 mmol/L 136-145 [facility] WBC (Bld) [#/Vol] 12.0 10*3/uL 4.4-11.0 [facility] Blood erythrocytes count (nu mber/volume)Ordered By: Carlos Cavazos on 11-22-2022 RBC (Bld) [#/Vol] 4.65 10*6/uL 4.6-6.2 [facility] Blood hemoglobin measurement (mass/volume)Ordered By: Carlos Cavazos on 11-22-2022 Hemoglobin (Bld) [Mass/Vol] 12.4 g/dL 13.0-16.[address] [facility] Blood platelet mean volumeOr dered By: Carlos Cavazos on 11-22-2022 Platelet mean volume (Bld) [Entitic vol] 10.3 fL 6.2-12.[address] [facility] Determination of erythrocyte mean corpuscular volume (MCV)Ordered By: Carlos Cavazos on 11-22-2022 MCV (RBC) [Entitic vol] 86.0 fL 80-[address] [facility] Hematocrit Auto (Bld) [Volum e fraction]Ordered By: Carlos Cavazos on 11-22-2022 Hematocrit (Bld) [Volume fraction] 40.0 % 40-[address] [facility] Laboratory - Chemistry and C hemistry - challengeOrdered By: Carlos Cavazos on 11-22-2022 CO2 [Moles/Vol] 25.0 mmol/L 21.0-32.[address] [facility] Urea nitrogen/Creatinine [Mass ratio] 23.6 mg/mg 10-[address] [facility] Laboratory - Hematology and Cell countsOrdered By: Carlos Cavazos on 11-22-2022 Erythrocyte distribution width (RBC) [Entitic vol] 50.0 fL 35.1-43.[address] [facility] Erythrocyte distribution width (RBC) [Ratio] 15.9 % 11.6-14.[address] [facility] MCH (RBC) [Entitic mass] 26.7 pg 27.0-32.[address] [facility] MCHC Auto (RBC) [Mass/Vol]Or dered By: Carlos Cavazos on 11-22-2022 MCHC (RBC) [Mass/Vol] 31.0 g/dL 32-36 [facility] No Panel InformationOrdered By: Carlos Cavazos on 11-22-2022 Estimated GFR (MDRD) Amer 115 mL/min >[address] [facility] Comment on above: GFR Calc Estimated GFR (MDRD) Non-Af Amer 95 mL/min >[address] [facility] Comment on above: Non- GFR Calc Platelets bldOrdered By: Ted Cavazos on 11-22-2022 Platelets (Bld) [#/Vol] 320 10*3/uL 150-[address] [facility] Serum or plasma calcium oral urement (mass/volume)Ordered By: Carlos Cavazos on 11-22-2022 Calcium [Mass/Vol] 8.7 mg/dL 8.5-10.1 [facility] Serum or plasma creatinine m easurement (mass/volume)Ordered By: Carlos Cavazos on 11-22-2022 Creatinine [Mass/Vol] 0.85 mg/dL 0.70-1.30 [facility] Comment on above: The validity of the calculated GFR & GFRAA in patients over 70 years has not been determined. Clinical correlation is essential. Serum or plasma urea nitroge n measurement (mass/volume)Ordered By: Carlos Cavazos on 11-22-2022 Urea nitrogen [Mass/Vol] 20 mg/dL 7-[address] [facility] Thin prep Papanicolaou smear with manual screeningOrdered By: Carlos Cavazos on 11-22-2022 Thin prep Papanicolaou smear with manual screening 8 5-[address] [facility] - CoagulationOrde red By: Carlos Cavazos on 11-09-2022 INR Coag (Bld) [Relative time] 2.1 {INR} [facility] Comment on above: Critical Value > 4.0 Whole blood prothrombin time Ordered By: Carlos Cavazos on 11-09-2022 PT Coag (Bld) [Time] 22.6 s 11.7-14.9 [facility] Laboratory - CoagulationOrde red By: Carlos Cavazos on 10-26-2022 INR Coag (Bld) [Relative time] 2.6 {INR} [facility] Comment on above: Critical Value > 4.0 Whole blood prothrombin time Ordered By: Carlos Cavazos on 10-26-2022 PT Coag (Bld) [Time] 28.5 s 11.7-14.9 [facility] Laboratory - CoagulationOrde red By: Carlos Cavazos on 10-12-2022 INR Coag (Bld) [Relative time] 2.4 {INR} [facility] Comment on above: Critical Value > 4.0 Whole blood prothrombin time Ordered By: Carlos Cavazos on 10-12-2022 PT Coag (Bld) [Time] 26.4 s 11.7-14.9 [facility] - CoagulationOrde red By: Carlos Cavazos on 10-05-2022 INR Coag (Bld) [Relative time] 2.6 {INR} [facility] Comment on above: Critical Value > 4.0 Whole blood prothrombin time Ordered By: Carlos Cavazos on 10-05-2022 PT Coag (Bld) [Time] 28.0 s 11.7-14.9 [facility] - CoagulationOrde red By: Carlos Cavazos on 09-28-2022 INR Coag (Bld) [Relative time] 2.7 {INR} [facility] Comment on above: Critical Value > 4.0 Whole blood prothrombin time Ordered By: Carlos Cavazos on 09-28-2022 PT Coag (Bld) [Time] 28.9 s 11.7-14.9 [facility] - CoagulationOrde red By: Carlos Cavazos on 09-14-2022 INR Coag (Bld) [Relative time] 2.5 {INR} [facility] Comment on above: Critical Value > 4.0 Whole blood prothrombin time Ordered By: Carlos Cavazos on 09-14-2022 PT Coag (Bld) [Time] 27.4 s 11.7-14.9 [facility] - CoagulationOrde red By: Carlos Cavazos on 08-31-2022 INR Coag (Bld) [Relative time] 2.3 {INR} [facility] Comment on above: Critical Value > 4.0 Whole blood prothrombin time Ordered By: Carlos Cavazos on 08-31-2022 PT Coag (Bld) [Time] 25.4 s 11.7-14.9 [facility] Basophil percentageOrdered B y: Carlos Cavazos on 08-23-2022 Chloride [Moles/Vol] 108 mmol/L 98-107 [facility] Glucose [Mass/Vol] 86 mg/dL 74-106 [facility] Potassium [Moles/Vol] 4.3 mmol/L 3.5-5.1 [facility] Sodium [Moles/Vol] 136 mmol/L 136-145 [facility] WBC (Bld) [#/Vol] 10.0 10*3/uL 4.4-11.0 [facility] Blood erythrocytes count (nu mber/volume)Ordered By: Carlos Cavazos on 08-23-2022 RBC (Bld) [#/Vol] 4.77 10*6/uL 4.6-6.2 [facility] Blood hemoglobin measurement (mass/volume)Ordered By: Carlos Cavazos on 08-23-2022 Hemoglobin (Bld) [Mass/Vol] 12.5 g/dL 13.0-16.[address] [facility] Blood platelet mean volumeOr dered By: Carlos Cavazos on 08-23-2022 Platelet mean volume (Bld) [Entitic vol] 11.0 fL 6.2-12.[address] [facility] Determination of erythrocyte mean corpuscular volume (MCV)Ordered By: Carlos Cavazos on 08-23-2022 MCV (RBC) [Entitic vol] 84.3 fL 80-[address] [facility] Hematocrit Auto (Bld) [Volum e fraction]Ordered By: Carlos Cavazos on 08-23-2022 Hematocrit (Bld) [Volume fraction] 40.2 % 40-[address] [facility] - Chemistry and C hemistry - challengeOrdered By: Carlos Cavazos on 08-23-2022 CO2 [Moles/Vol] 24.0 mmol/L 21.0-32.[address] [facility] Urea nitrogen/Creatinine [Mass ratio] 22.8 mg/mg 10-[address] [facility] - Hematology and Cell countsOrdered By: Carlos Cavazos on 08-23-2022 Erythrocyte distribution width (RBC) [Entitic vol] 49.3 fL 35.1-43.[address] [facility] Erythrocyte distribution width (RBC) [Ratio] 16.0 % 11.6-14.[address] [facility] MCH (RBC) [Entitic mass] 26.2 pg 27.0-32.[address] [facility] MCHC Auto (RBC) [Mass/Vol]Or dered By: Carlos Cavazos on 08-23-2022 MCHC (RBC) [Mass/Vol] 31.1 g/dL 32-36 [facility] No Panel InformationOrdered By: Carlos Cavazos on 08-23-2022 Estimated GFR (MDRD) Amer 134 mL/min >[address] [facility] Comment on above: GFR Calc Estimated GFR (MDRD) Non-Af Amer 110 mL/min >[address] [facility] Comment on above: Non- GFR Calc Platelets bldOrdered By: Ted Cavazos on 08-23-2022 Platelets (Bld) [#/Vol] 268 10*3/uL 150-[address] [facility] Serum or plasma calcium oral urement (mass/volume)Ordered By: Carlos Cavazos on 08-23-2022 Calcium [Mass/Vol] 9.1 mg/dL 8.5-10.1 [facility] Serum or plasma creatinine m easurement (mass/volume)Ordered By: Carlos Cavazos on 08-23-2022 Creatinine [Mass/Vol] 0.74 mg/dL 0.70-1.30 [facility] Comment on above: The validity of the calculated GFR & GFRAA in patients over 70 years has not been determined. Clinical correlation is essential. Serum or plasma urea nitroge n measurement (mass/volume)Ordered By: Carlos Cavazos on 08-23-2022 Urea nitrogen [Mass/Vol] 17 mg/dL 7-[address] [facility] Thin prep Papanicolaou smear with manual screeningOrdered By: Carlos Cavazos on 08-23-2022 Thin prep Papanicolaou smear with manual screening 4 5-[address] [facility] - CoagulationOrde red By: Carlos Cavazos on 08-17-2022 INR Coag (Bld) [Relative time] 2.8 {INR} [facility] Comment on above: Critical Value > 4.0 Whole blood prothrombin time Ordered By: Carlos Cavazos on 08-17-2022 PT Coag (Bld) [Time] 29.6 s 11.7-14.9 [facility] - CoagulationOrde red By: Carlos Cavazos on 08-14-2022 INR Coag (Bld) [Relative time] 3.9 {INR} [facility] Comment on above: Critical Value > 4.0 Whole blood prothrombin time Ordered By: Carlos Cavazos on 08-14-2022 PT Coag (Bld) [Time] 40.6 s 11.7-14.9 [facility] - CoagulationOrde red By: Carlos Cavazos on 07-31-2022 INR Coag (Bld) [Relative time] 2.5 {INR} [facility] Comment on above: Critical Value > 4.0 Whole blood prothrombin time Ordered By: Carlos Cavazos on 07-31-2022 PT Coag (Bld) [Time] 26.8 s 11.7-14.9 [facility] INR in Blood by Coagulation assayOrdered By: Carlos Cavazos on 07-24-2022 INR Coag (Bld) [Relative time] 2.3 {INR} [facility] - CoagulationOrde red By: Carlos Cavazos on 07-24-2022 PT Coag (PPP) [Time] 24.7 s 11.7-14.9 [facility] - CoagulationOrde red By: Carlos Cavazos on 07-20-2022 INR Coag (Bld) [Relative time] 1.9 {INR} [facility] Comment on above: Critical Value > 4.0 Whole blood prothrombin time Ordered By: Carlos Cavazos on 07-20-2022 PT Coag (Bld) [Time] 20.6 s 11.7-14.9 [facility] - CoagulationOrde red By: Carlos Cavazos on 07-17-2022 INR Coag (Bld) [Relative time] 1.3 {INR} [facility] Comment on above: Critical Value > 4.0 Whole blood prothrombin time Ordered By: Carlos Cavazos on 07-17-2022 PT Coag (Bld) [Time] 15.9 s 11.7-14.9 [facility] Basophil percentageOrdered B y: Carlos Cavazos on 07-11-2022 Chloride [Moles/Vol] 105 mmol/L 98-107 [facility] Glucose [Mass/Vol] 97 mg/dL 74-106 [facility] Potassium [Moles/Vol] 3.9 mmol/L 3.5-5.1 [facility] Sodium [Moles/Vol] 140 mmol/L 136-145 [facility] WBC (Bld) [#/Vol] 9.4 10*3/uL 4.4-11.0 [facility] Blood erythrocytes count (nu mber/volume)Ordered By: Carlos Cavazos on 07-11-2022 RBC (Bld) [#/Vol] 4.66 10*6/uL 4.6-6.2 [facility] Blood hemoglobin measurement (mass/volume)Ordered By: Carlos Cavazos on 07-11-2022 Hemoglobin (Bld) [Mass/Vol] 12.0 g/dL 13.0-16.[address] [facility] Blood platelet mean volumeOr dered By: Carlos Cavazos on 07-11-2022 Platelet mean volume (Bld) [Entitic vol] 10.4 fL 6.2-12.[address] [facility] Determination of erythrocyte mean corpuscular volume (MCV)Ordered By: Carlos Cavazos on 07-11-2022 MCV (RBC) [Entitic vol] 83.7 fL 80-[address] [facility] Hematocrit Auto (Bld) [Volum e fraction]Ordered By: Carlos Cavazos on 07-11-2022 Hematocrit (Bld) [Volume fraction] 39.0 % 40-[address] [facility] Laboratory - Chemistry and C hemistry - challengeOrdered By: Carlos Cavazos on 07-11-2022 CO2 [Moles/Vol] 28.0 mmol/L 21.0-32.[address] [facility] Urea nitrogen/Creatinine [Mass ratio] 23.0 mg/mg 10-[address] [facility] Laboratory - Hematology and Cell countsOrdered By: Carlos Cavazos on 07-11-2022 Erythrocyte distribution width (RBC) [Entitic vol] 51.0 fL 35.1-43.[address] [facility] Erythrocyte distribution width (RBC) [Ratio] 16.8 % 11.6-14.[address] [facility] MCH (RBC) [Entitic mass] 25.8 pg 27.0-32.[address] [facility] MCHC Auto (RBC) [Mass/Vol]Or dered By: Carlos Cavazos on 07-11-2022 MCHC (RBC) [Mass/Vol] 30.8 g/dL 32-36 [facility] No Panel InformationOrdered By: Carlos Cavazos on 07-11-2022 Estimated GFR (MDRD) Amer 126 mL/min >[address] [facility] Comment on above: GFR Calc Estimated GFR (MDRD) Non-Af Amer 104 mL/min >[address] [facility] Comment on above: Non- GFR Calc Platelets bldOrdered By: Ted Cavazos on 07-11-2022 Platelets (Bld) [#/Vol] 291 10*3/uL 150-[address] [facility] Serum or plasma calcium oral urement (mass/volume)Ordered By: Carlos Cavazos on 07-11-2022 Calcium [Mass/Vol] 9.2 mg/dL 8.5-10.1 [facility] Serum or plasma creatinine m easurement (mass/volume)Ordered By: Carlos Cavazos on 07-11-2022 Creatinine [Mass/Vol] 0.78 mg/dL 0.70-1.30 [facility] Comment on above: The validity of the calculated GFR & GFRAA in patients over 70 years has not been determined. Clinical correlation is essential. Serum or plasma urea nitroge n measurement (mass/volume)Ordered By: Carlos Cavazos on 07-11-2022 Urea nitrogen [Mass/Vol] 18 mg/dL 7-[address] [facility] Thin prep Papanicolaou smear with manual screeningOrdered By: Carlos Cavazos on 07-11-2022 Thin prep Papanicolaou smear with manual screening 7 5-[address] [facility] - CoagulationOrde red By: Carlos Cavazos on 07-10-2022 INR Coag (Bld) [Relative time] 1.8 {INR} [facility] Comment on above: Critical Value > 4.0 Whole blood prothrombin time Ordered By: Carlos Cavazos on 07-10-2022 PT Coag (Bld) [Time] 21.0 s 11.7-14.9 [facility] - CoagulationOrde red By: Carlos Cavazos on 07-03-2022 INR Coag (Bld) [Relative time] 1.9 {INR} [facility] Comment on above: Critical Value > 4.0 Whole blood prothrombin time Ordered By: Carlos Cavazos on 07-03-2022 PT Coag (Bld) [Time] 22.7 s 11.7-14.9 [facility] INR in Blood by Coagulation assayOrdered By: Carlos Cavazos on 06-27-2022 INR Coag (Bld) [Relative time] 2.9 {INR} [facility] - CoagulationOrde red By: Carlos Cavazos on 06-27-2022 PT Coag (PPP) [Time] 29.9 s 11.7-14.9 [facility] Laboratory - CoagulationOrde red By: Carlos Cavazos on 06-13-2022 INR Coag (Bld) [Relative time] 2.1 {INR} [facility] Comment on above: Critical Value > 4.0 Whole blood prothrombin time Ordered By: Carlos Cavazos on 06-13-2022 PT Coag (Bld) [Time] 24.4 s 11.7-14.9 [facility] - CoagulationOrde red By: Carlos Cavazos on 06-06-2022 INR Coag (Bld) [Relative time] 1.5 {INR} [facility] Comment on above: Critical Value > 4.0 Whole blood prothrombin time Ordered By: Carlos Cavazos on 06-06-2022 PT Coag (Bld) [Time] 18.4 s 11.7-14.9 [facility] Basophil percentageOrdered B y: Carlos Cavazos on 05-30-2022 Chloride [Moles/Vol] 105 mmol/L 98-107 [facility] Glucose [Mass/Vol] 95 mg/dL 74-106 [facility] Potassium [Moles/Vol] 3.9 mmol/L 3.5-5.1 [facility] Sodium [Moles/Vol] 140 mmol/L 136-145 [facility] WBC (Bld) [#/Vol] 7.6 10*3/uL 4.4-11.0 [facility] Blood erythrocytes count (nu mber/volume)Ordered By: Carlos Cavazos on 05-30-2022 RBC (Bld) [#/Vol] 4.79 10*6/uL 4.6-6.2 [facility] Blood hemoglobin measurement (mass/volume)Ordered By: Carlos Cavazos on 05-30-2022 Hemoglobin (Bld) [Mass/Vol] 12.1 g/dL 13.0-16.[address] [facility] Blood platelet mean volumeOr dered By: Carlos Cavazos on 05-30-2022 Platelet mean volume (Bld) [Entitic vol] 10.4 fL 6.2-12.[address] [facility] Determination of erythrocyte mean corpuscular volume (MCV)Ordered By: Carlos Cavazos on 05-30-2022 MCV (RBC) [Entitic vol] 82.5 fL 80-[address] [facility] Hematocrit Auto (Bld) [Volum e fraction]Ordered By: Carlos Cavazos on 05-30-2022 Hematocrit (Bld) [Volume fraction] 39.5 % 40-[address] [facility] INR in Blood by Coagulation assayOrdered By: Carlos Cavazos on 05-30-2022 INR Coag (Bld) [Relative time] 1.9 {INR} [facility] Laboratory - Chemistry and C hemistry - challengeOrdered By: Carlos Cavazos on 05-30-2022 CO2 [Moles/Vol] 27.0 mmol/L 21.0-32.[address] [facility] Urea nitrogen/Creatinine [Mass ratio] 21.4 mg/mg 10-[address] [facility] Laboratory - CoagulationOrde red By: Carlos Cavazos on 05-30-2022 PT Coag (PPP) [Time] 21.6 s 11.7-14.9 [facility] - Hematology and Cell countsOrdered By: Carlos Cavazos on 05-30-2022 Erythrocyte distribution width (RBC) [Entitic vol] 48.8 fL 35.1-43.[address] [facility] Erythrocyte distribution width (RBC) [Ratio] 16.2 % 11.6-14.[address] [facility] MCH (RBC) [Entitic mass] 25.3 pg 27.0-32.0 [facility] ([facility]BC) [Mass/Vol]Or dered By: Carlos Cavazos on 05-30-2022 MCHC (RBC) [Mass/Vol] 30.6 g/dL 32-36 [facility] No Panel InformationOrdered By: Carlos Cavazos on 05-30-2022 Estimated GFR (MDRD) Amer 133 mL/min >[address] [facility] Comment on above: GFR Calc Estimated GFR (MDRD) Non-Af Amer 110 mL/min >[address] [facility] Comment on above: Non- GFR Calc Platelets bldOrdered By: Pet er Kenny on 05-30-2022 Platelets (Bld) [#/Vol] 308 10*3/uL 150-[address] [facility] Serum or plasma calcium oral urement (mass/volume)Ordered By: Carlos Cavazos on 05-30-2022 Calcium [Mass/Vol] 9.1 mg/dL 8.5-10.1 [facility] Serum or plasma creatinine m easurement (mass/volume)Ordered By: Carlos Cavazos on 05-30-2022 Creatinine [Mass/Vol] 0.75 mg/dL 0.70-1.30 [facility] Comment on above: The validity of the calculated GFR & GFRAA in patients over 70 years has not been determined. Clinical correlation is essential. Serum or plasma urea nitroge n measurement (mass/volume)Ordered By: Carlos Cavazos on 05-30-2022 Urea nitrogen [Mass/Vol] 16 mg/dL 7-[address] [facility] Thin prep Papanicolaou smear with manual screeningOrdered By: Carlos Cavazos on 05-30-2022 Thin prep Papanicolaou smear with manual screening 8 5-[address] [facility] Laboratory - CoagulationOrde red By: Carlos Cavazos on 05-16-2022 INR Coag (Bld) [Relative time] 2.6 {INR} [facility] Comment on above: Critical Value > 4.0 Whole blood prothrombin time Ordered By: Carlos Cavazos on 05-16-2022 PT Coag (Bld) [Time] 29.9 s 11.7-14.9 [facility] - CoagulationOrde red By: Carlos Cavazos on 05-02-2022 INR Coag (Bld) [Relative time] 2.0 {INR} [facility] Comment on above: Critical Value > 4.0 Whole blood prothrombin time Ordered By: Carlos Cavazos on 05-02-2022 PT Coag (Bld) [Time] 23.2 s 11.7-14.9 [facility] - CoagulationOrde red By: Carlos Cavazos on 04-27-2022 INR Coag (Bld) [Relative time] 2.7 {INR} [facility] Comment on above: Critical Value > 4.0 Whole blood prothrombin time Ordered By: Carlos Cavazos on 04-27-2022 PT Coag (Bld) [Time] 31.1 s 11.7-14.9 [facility] - CoagulationOrde red By: Carlos Cavazos on 04-26-2022 INR Coag (Bld) [Relative time] 2.8 {INR} [facility] Comment on above: Critical Value > 4.0 Whole blood prothrombin time Ordered By: Carlos Cavazos on 04-26-2022 PT Coag (Bld) [Time] 32.6 s 11.7-14.9 [facility] - CoagulationOrde red By: Carlos Cavazos on 04-11-2022 INR Coag (Bld) [Relative time] 2.9 {INR} [facility] Comment on above: Critical Value > 4.0 Whole blood prothrombin time Ordered By: Carlos Cavazos on 04-11-2022 PT Coag (Bld) [Time] 32.8 s 11.7-14.9 [facility] - CoagulationOrde red By: Carlos Cavazos on 03-28-2022 INR Coag (Bld) [Relative time] 2.1 {INR} [facility] Comment on above: Critical Value > 4.0 Whole blood prothrombin time Ordered By: Carlos Cavazos on 03-28-2022 PT Coag (Bld) [Time] 24.8 s 11.7-14.9 [facility] - CoagulationOrde red By: Carlos Cavazos on 03-23-2022 INR Coag (Bld) [Relative time] 1.7 {INR} [facility] Comment on above: Critical Value > 4.0 Whole blood prothrombin time Ordered By: Carlos Cavazos on 03-23-2022 PT Coag (Bld) [Time] 20.9 s 11.7-14.9 [facility] - CoagulationOrde red By: Carlos Cavazos on 03-16-2022 INR Coag (Bld) [Relative time] 1.7 {INR} [facility] Comment on above: Critical Value > 4.0 Whole blood prothrombin time Ordered By: Carlos Cavazos on 03-16-2022 PT Coag (Bld) [Time] 19.9 s 11.7-14.9 [facility] - CoagulationOrde red By: Carlos Cavazos on 03-09-2022 INR Coag (Bld) [Relative time] 1.8 {INR} [facility] Comment on above: Critical Value > 4.0 Whole blood prothrombin time Ordered By: Carlos Cavazos on 03-09-2022 PT Coag (Bld) [Time] 21.9 s 11.7-14.9 [facility] - CoagulationOrde red By: Carlos Cavazos on 03-06-2022 INR Coag (Bld) [Relative time] 1.7 {INR} [facility] Comment on above: Critical Value > 4.0 Whole blood prothrombin time Ordered By: Carlos Cavazos on 03-06-2022 PT Coag (Bld) [Time] 20.0 s 11.7-14.9 [facility] CBC with Auto Differentialon 03-02-2022 Absolute Baso [...] 10*3/uL [facility] Test Performed by [facility], [address] [place] [address] [facility] [address] HEAD WO CONTRASTon 2021 Patient Name: ANDREW SIFUENTES Computed Tomography ACCESSION EXAM DATE/TIME PROCEDURE ORDERING PROVIDER [id number] 03/02/2022 13:[address] Head or Brain w/o 625269 -MARIBEL MUNGUIAHRYN Contrast CPT code 75530 Reason For Exam (CT Head or Brain [...] tubes (parent active on the left for RN INVASIVE shunting and disconnected on the right). 2. No definite evidence of acute infarction (MRI more sensitive), mass lesion, nor hemorrhage. Report Dictated on --- Final --- Dictated: 03/02/2022 1:35 pm Dictating Physician: MD GUTIERREZ WILLIAM Signed Date and Time: 03/02/2022 1:39 pm Signed by: MD GUTIERREZ WILLIAM Transcribed Date and Time: 03/02/2022 1:35 [facility] Anant Gutierrez MD - 03/02/2022 [id number] ACCESSION EXAM DATE/TIME PROCEDURE ORDERING PROVIDER [id number] 03/02/2022 13:[address] Head or Brain w/o [id number] -LANETTE MUNGUIA Contrast CPT code 14329 Reason For Exam (CT Head or Brain [...] tubes (parent active on the left for RN INVASIVE shunting and disconnected on the right). 2. [...] Tomography ACCESSION EXAM DATE/TIME PROCEDURE ORDERING PROVIDER [id number] 03/02/2022 13:[address] Head or Brain w/o [id number] -LANETTE MNUGUIA Contrast CPT code 47830 Reason For Exam (CT Head or Brain [...] tubes (parent active on the left for RN INVASIVE shunting and disconnected on the right). 2. No definite evidence of acute infarction (MRI more sensitive), mass lesion, nor hemorrhage. Report Dictated on Final Dictated: 03/02/2022 1:35 pm Dictating Physician: MD GUTIERREZ WILLIAM Signed Date and Time: 03/02/2022 1:39 pm Signed by: MD GUTIERREZ WILLIAM Transcribed Date and Time: 03/02/2022 1:35 Normal [facility] Comp Metabolic Panelon 03-02 Calcium [Mass/Vol] 9.1 mg/dL Normal 8.4-10.4 [facility] Comment on above: Performed By: #### H TIERA PT, CMP3 ####[address] [place], [place] ALP [Catalytic activity/Vol] 128 U/L High 38-126 [facility] Comment on above: Performed By: #### H BIMALF PT, CMP3 ####[address] [place], [place] ALT [Catalytic activity/Vol] 12 U/L Normal 0-49 [facility] Comment on above: Result Comment: The ALT test is performed by an updated assay method. Please note that the reference intervals have been changed and are now sex specific. Performed By: #### H EMDF PT, CMP3 ####[address] [place], [place] Anion gap [Moles/Vol] 7 mmol/L Normal 3-13 [facility] Comment on above: Performed By: #### H EMDF PT, CMP3 ####[address] [place], [place] AST [Catalytic activity/Vol] 24 U/L Normal 15-46 [facility] Comment on above: Performed By: #### H CHRISTEL MOTT, CMP3 ####[address] [place], [place] Bilirubin [Mass/Vol] 0.4 mg/dL Normal 0.2-1.3 [facility] Comment on above: Performed By: #### H CHRISTEL MOTT, CMP3 ####[address] [place], [place] CO2 [Moles/Vol] 27 mmol/L Normal 22-30 [facility] Comment on above: Performed By: #### H CHRISTEL MOTT, CMP3 ####[address] [place], [place] Glucose [Mass/Vol] 109 mg/dL High 70-100 [facility] Comment on above: Performed By: #### H CHRISTEL MOTT, CMP3 ####[address] Protein [Mass/Vol] 8.1 g/dL Normal 6.3-8.2 [facility] Comment on above: Performed By: #### H CHRISTEL MOTT, CMP3 ####[address] [address] [place], [place] Urea nitrogen [Mass/Vol] 22 mg/dL High 7-17 [facility] Comment on above: Performed By: #### H CHRISTEL MOTT, CMP3 ####[address] [place], [place] Creatinine [Mass/Vol] 0.63 mg/dL Normal 0.52-1.25 [facility] Comment on above: Performed By: #### H CHRISTEL MOTT, CMP3 ####[address] eGFR OTHER > 90.0 Normal >60 [facility] Comment on above: Result Comment: KDIG [...] By: #### H CHRISTEL MOTT CMP3 ####[address] GFR/1.73 sq M.predicted among blacks MDRD (S/P/Bld) [Vol rate/Area] mL/min/{1.73_m2} Normal >60 [facility] Comment on above: Performed By: #### H CHRISTEL MOTT CMP3 ####[address] Albumin [Mass/Vol] 4.1 g/dL Normal 3.5-5.0 [facility] Comment on above: Performed By: #### H CHRISTEL MOTT CMP3 ####[address] [address] Chloride [Moles/Vol] 106 mmol/L Normal 98-107 [facility] Comment on above: Performed By: #### H CHRISTEL MOTT CMP3 ####[address] Potassium [Moles/Vol] 3.7 mmol/L Normal 3.5-5.1 [facility] Comment on above: Performed By: #### H CHRISTEL MOTT CMP3 ####[address] Sodium [Moles/Vol] 140 mmol/L Normal 135-145 [facility] Comment on above: Performed By: #### H CHRISTEL MOTT CMP3 ####[address] [place] [address] Comprehensive Metabolic Pane [facility] 03-02-2022 Albumin [Mass/Vol] 4.1 g/dL 3.5 - [...] P INF mL/min [facility] EGFR IF NonAfrican [place] mL/min 60 - PINF mL/min [facility] Comment [...] - 17 mg/dL [facility] Test Performed by [address] [address] [facility] ED Provider Noteon 2 ED Provider Note [facility] EMERGENCY DEPT EMERGENCY DEPARTMENT ENCOUNTER Pt Name: Andrew Sifuentes Birthdate 1950 Date of evaluation: 03/02/2022 Provider: Lanette Munguia DO CHIEF COMPLAINT Chief Complaint Patient presents with Fall Patient had unwitnessed fall at [facility] landed on butt. Is on thinners, denies LOC, denies head injury has no complaints at this time HISTORY OF PRESENT ILLNESS (Location/Symptom, Timing/Onset, Context/Setting, Quality, Duration, Modifying Factors, Severity) Note limiting factors. I wore a N-95 mask for the entirety of this encounter. Andrew Sifuentes is a 71 y.o. male medical history of hydrocephalus status post RN INVASIVE shunt, history of DVT on Coumadin who presents to the emergency department from [facility] for evaluation following mechanical fall. Patient rolled out of bed. Unwitnessed. Found down on ground by nursing staff. Nonambulatory at baseline. Patient reports he did not hit his head. Has no acute complaints. Denies any pain or traumatic injury. Per [facility] protocol [facility], sent to emergency department due to unwitnessed [...] Hemorrhoids Hydrocephalus, adult (HCC) Kidney stone Neuropathy RN INVASIVE (ventriculoperitoneal) shunt status SURGICAL HISTORY Past Surgical [...] R (more content not included)... Normal [facility] Hemogram w/ Autodiffon 03-02 Abs Baso Cnt 0.2 10*3/uL Normal 0.0-0.2 [facility] Comment on above: Performed By: #### H TIERA PT, CMP3 ####[facility] [place] [address] Abs Neutrophile Cnt 10.7 10*3/uL High 1.8-7.0 [facility] Comment on above: Performed By: #### H EMDF PT, CMP3 ####[facility] [place] [address] Basophils/100 WBC (Bld) 1.1 % Normal 0.0-2.0 [facility] Comment on above: Performed By: #### H EMDF PT, CMP3 ####[facility] [place] [address] Eosinophils (Bld) [#/Vol] 0.1 10*3/uL Normal 0.0-0.5 [facility] Comment on above: Performed By: #### H EMDF PT, CMP3 ####[address] [address] Eosinophils/100 WBC (Bld) 0.5 % Low 1.0-6.0 [facility] Comment on above: Performed By: #### H EMDF PT, CMP3 ####[address] [address] Granulocytes/100 WBC (Bld) 73.9 % Normal 40.0-80.0 [facility] Comment on above: Performed By: #### H TIERA PT, CMP3 ####[address] [address] Lymphocytes (Bld) [#/Vol] 3.0 10*3/uL Normal 1.0-4.3 [facility] Comment on above: Performed By: #### H EMDHeydi PT, CMP3 ####[address] [address] Lymphocytes/100 WBC (Bld) 20.6 % Normal 20.0-40.0 [facility] Comment on above: Performed By: #### H EMDHeydi PT, CMP3 ####[address] [address] Monocytes (Bld) [#/Vol] 0.6 10*3/uL Normal 0.0-0.8 [facility] Comment on above: Performed By: #### H EMDF PT, CMP3 ####[address] [address] Monocytes/100 WBC (Bld) 3.9 % Normal 2.0-10.0 [facility] Comment on above: Performed By: #### H EMDHeydi PT, CMP3 ####[address] [address] Platelet mean volume (Bld) [Entitic vol] 8.5 fL Normal 7.4-12.4 [facility] Comment on above: Result Comment: MPV is a calculated measurement using platelet volume ratio. Performed By: #### H EMDHeydi PT, CMP3 ####[address] [place], [place] Platelets (Bld) [#/Vol] 411 10*3/uL Normal 140-440 [facility] Comment on above: Performed By: #### H TIERA PT, CMP3 ####[address] [place], [place] Erythrocyte distribution width (RBC) [Ratio] 17.0 % High 11.5-14.5 [facility] Comment on above: Performed By: #### H TIERA PT, CMP3 ####[address] [place], [place] Hematocrit (Bld) [Volume fraction] 37.4 % Low 40.0-52.0 [facility] Comment on above: Performed By: #### H TIERA PT, CMP3 ####[address] Hemoglobin (Bld) [Mass/Vol] 12.1 g/dL Low 13.0-18.0 [facility] Comment on above: Performed By: #### H TIERA PT, CMP3 ####[address] [place], [place] MCH (RBC) [Entitic mass] 26.2 pg Normal 26.0-34.0 [facility] Comment on above: Performed By: #### H EMDHeydi PT, CMP3 ####[address] [place], [place] MCHC 32.3 % Normal 32.0-36.0 [facility] Comment on above: Performed By: #### H EMDHeydi PT, CMP3 ####[address] MCV (RBC) [Entitic vol] 81.1 fL Normal 80.0-98.0 [facility] Comment on above: Performed By: #### H EMDF PT, CMP3 ####[address] RBC (Bld) [#/Vol] 4.61 10*6/uL Normal 4.40-5.90 [facility] Comment on above: Performed By: #### H TIERA PT, CMP3 ####[address] [place], [place] WBC (Bld) [#/Vol] 14.5 10*3/uL High 3.6-10.7 [facility] Comment on above: Performed By: #### H TIERA PT, CMP3 ####[address] [place], [place] Prothrombin Timeon INR 1.9 High 0.9-1.1 [facility] Comment on above: Result Comment: Harry [...] prevent Myocardial Infarction Performed By: #### H TIERA PT, CMP3 ####[address] [place], [place] PT Coag (PPP) [Time] 18.9 s High 9.0-12.0 [facility] Comment on above: Result Comment: . Performed By: #### H TIERA PT, CMP3 ####[address] [place], [place] Protime-INRon 03-02-2022 INR Coag (Bld) [Relative time] 1.9 {INR} High [facility] Comment on above: Recommended Anticoag ulant [...] Interpretation and review of laboratory results Abnormal [facility] PT Coag (PPP) [Time] 18.9 s High 9.0 - 12.0 s [facility] Comment on above: . Test Performed by [facility], [address] [place] [id number] [facility] Laboratory - CoagulationOrde red By: Carlos Cavazos on 02-20-2022 INR Coag (Bld) [Relative time] 2.6 {INR} [facility] Comment on above: Critical Value > 4.0 Whole blood prothrombin time Ordered By: Carlos Cavazos on 02-20-2022 PT Coag (Bld) [Time] 30.1 s 11.7-14.9 [facility] - CoagulationOrde red By: Carlos Cavazos on 02-13-2022 INR Coag (Bld) [Relative time] 2.3 {INR} [facility] Comment on above: Critical Value > 4.0 Whole blood prothrombin time Ordered By: Carlos Cavazos on 02-13-2022 PT Coag (Bld) [Time] 26.7 s 11.7-14.9 [facility] Laboratory - CoagulationOrde red By: Carlos Cavazos on 02-06-2022 INR Coag (Bld) [Relative time] 2.3 {INR} [facility] Comment on above: Critical Value > 4.0 Whole blood prothrombin time Ordered By: Carlos Cavazos on 02-06-2022 PT Coag (Bld) [Time] 26.6 s 11.7-14.9 [facility] Laboratory - Coagulationon 0 01-30-2022 INR Coag (Bld) [Relative time] 1.7 {INR} [facility] Work Phone: Comment on above: Critical Value > 4.0 Whole blood prothrombin time on 01-30-2022 PT Coag (Bld) [Time] 20.1 s 11.7-14.9 [facility] Work Phone: Laboratory - Coagulationon 0 01-26-2022 INR Coag (Bld) [Relative time] 1.8 {INR} [facility] Work Phone: Comment on above: Critical Value > 4.0 Whole blood prothrombin time on 01-26-2022 PT Coag (Bld) [Time] 21.8 s 11.7-14.9 [facility] Work Phone: Laboratory - Coagulationon 0 01-19-2022 INR Coag (Bld) [Relative time] 2.2 {INR} [facility] Work Phone: Comment on above: Critical Value > 4.0 Whole blood prothrombin time on 01-19-2022 PT Coag (Bld) [Time] 25.7 s 11.7-14.9 [facility] Work Phone: INR in Blood by Coagulation assayon 01-10-2022 INR Coag (Bld) [Relative time] 1.8 {INR} [facility] Work Phone: Laboratory - Coagulationon 0 01-10-2022 PT Coag (PPP) [Time] 20.9 s 11.7-14.9 [facility] Work Phone: Basophil percentageon 2021 Chloride [Moles/Vol] 107 mmol/L 98-107 [facility] Work Phone: Glucose [Mass/Vol] 82 mg/dL 74-106 [facility] Work Phone: Potassium [Moles/Vol] 3.4 mmol/L 3.5-5.1 [facility] Work Phone: Sodium [Moles/Vol] 143 mmol/L 136-145 [facility] Work Phone: WBC (Bld) [#/Vol] 10.4 10*3/uL 4.4-11.0 [facility] Work Phone: Blood erythrocytes count (nu mber/volume)on 01-05-2022 RBC (Bld) [#/Vol] 4.27 10*6/uL 4.6-6.2 [facility] Work Phone: Blood hemoglobin measurement (mass/volume)on 01-05-2022 Hemoglobin (Bld) [Mass/Vol] 11.2 g/dL 13.0-16.[address] [facility] Work Phone: Blood platelet mean volumeon 01-05-2022 Platelet mean volume (Bld) [Entitic vol] 10.3 fL 6.2-12.[address] [facility] Work Phone: Determination of erythrocyte mean corpuscular volume (MCV)on 01-05-2022 MCV (RBC) [Entitic vol] 84.8 fL 80-[address] [facility] Work Phone: Hematocrit Auto (Bld) [Volum e fraction]on 01-05-2022 Hematocrit (Bld) [Volume fraction] 36.2 % 40-[address] [facility] Work Phone: Laboratory - Chemistry and C hemistry - challengeon 01-05-2022 CO2 [Moles/Vol] 28.0 mmol/L 21.0-32.[address] [facility] Work Phone: Urea nitrogen/Creatinine [Mass ratio] 20.0 mg/mg 10-[address] [facility] Work Phone: Laboratory - Hematology and Cell countson 01-05-2022 Erythrocyte distribution width (RBC) [Entitic vol] 51.8 fL 35.1-43.[address] [facility] Work Phone: Erythrocyte distribution width (RBC) [Ratio] 16.8 % 11.6-14.[address] [facility] Work Phone: MCH (RBC) [Entitic mass] 26.2 pg 27.0-32.[address] [facility] Work Phone: MCHC Auto (RBC) [Mass/Vol]on 01-05-2022 MCHC (RBC) [Mass/Vol] 30.9 g/dL 32-36 [facility] Work Phone: No Panel Informationon 01-05 Estimated GFR (MDRD) Amer 133 mL/min >[address] [facility] Work Phone: Comment on above: GFR Calc Estimated GFR (MDRD) Non-Af Amer 110 mL/min >[address] [facility] Work Phone: Comment on above: Non- GFR Calc Platelets bldon 01-05-2022 Platelets (Bld) [#/Vol] 373 10*3/uL 150-[address] [facility] Work Phone: Serum or plasma calcium oral urement (mass/volume)on 01-05-2022 Calcium [Mass/Vol] 8.8 mg/dL 8.5-10.1 [facility] Work Phone: Serum or plasma creatinine m easurement (mass/volume)on 01-05-2022 Creatinine [Mass/Vol] 0.75 mg/dL 0.70-1.30 [facility] Work Phone: Comment on above: The validity of the calculated GFR & GFRAA in patients over 70 years has not been determined. Clinical correlation is essential. Serum or plasma urea nitroge n measurement (mass/volume)on 01-05-2022 Urea nitrogen [Mass/Vol] 15 mg/dL 7-[address] [facility] Work Phone: Thin prep Papanicolaou smear with manual screeningon 01-05-2022 Thin prep Papanicolaou smear with manual screening 8 5-[address] [facility] Work Phone: Laboratory - Coagulationon 0 12-30-2021 INR Coag (Bld) [Relative time] 2.0 {INR} [facility] Work Phone: Comment on above: Critical Value > 4.0 Whole blood prothrombin time on 12-30-2021 PT Coag (Bld) [Time] 23.7 s 11.7-14.9 [facility] Work Phone: Basophil percentageon 2021 Chloride [Moles/Vol] 106 mmol/L 98-107 [facility] Work Phone: Glucose [Mass/Vol] 91 mg/dL 74-106 [facility] Work Phone: Potassium [Moles/Vol] 3.4 mmol/L 3.5-5.1 [facility] [facility] Work Phone: Sodium [Moles/Vol] 141 mmol/L 136-145 [facility] Work Phone: WBC (Bld) [#/Vol] 10.2 10*3/uL 4.4-11.0 [facility] Work Phone: Blood erythrocytes count (nu mber/volume)on 12-28-2021 RBC (Bld) [#/Vol] 4.22 10*6/uL 4.6-6.2 [facility] Work Phone: Blood hemoglobin measurement (mass/volume)on 12-28-2021 Hemoglobin (Bld) [Mass/Vol] 11.2 g/dL 13.0-16.[address] [facility] Work Phone: Blood platelet mean volumeon 12-28-2021 Platelet mean volume (Bld) [Entitic vol] 10.1 fL 6.2-12.[address] [facility] Work Phone: Determination of erythrocyte mean corpuscular volume (MCV)on 12-28-2021 MCV (RBC) [Entitic vol] 82.7 fL 80-[address] [facility] Work Phone: Hematocrit Auto (Bld) [Volum e fraction]on 12-28-2021 Hematocrit (Bld) [Volume fraction] 34.9 % 40-[address] [facility] Work Phone: Laboratory - Chemistry and C hemistry - challengeon 12-28-2021 CO2 [Moles/Vol] 30.0 mmol/L 21.0-32.[address] [facility] Work Phone: Urea nitrogen/Creatinine [Mass ratio] 33.7 mg/mg 10-[address] [facility] Work Phone: Laboratory - Hematology and Cell countson 12-28-2021 Erythrocyte distribution width (RBC) [Entitic vol] 49.1 fL 35.1-43.[address] [facility] Work Phone: Erythrocyte distribution width (RBC) [Ratio] 16.5 % 11.6-14.[address] [facility] Work Phone: MCH (RBC) [Entitic mass] 26.5 pg 27.0-32.[address] [facility] Work Phone: MCHC Auto (RBC) [Mass/Vol]on 12-28-2021 MCHC (RBC) [Mass/Vol] 32.1 g/dL 32-36 [facility] Work Phone: No Panel Informationon 12-28 Estimated GFR (MDRD) Amer 174 mL/min >[address] [facility] Work Phone: Comment on above: GFR Calc Estimated GFR (MDRD) Non-Af Amer 143 mL/min >[address] [facility] Work Phone: Comment on above: Non- GFR Calc Platelets bldon 12-28-2021 Platelets (Bld) [#/Vol] 339 10*3/uL 150-[address] [facility] Work Phone: Serum or plasma calcium oral urement (mass/volume)on 12-28-2021 Calcium [Mass/Vol] 8.6 mg/dL 8.5-10.1 [facility] Work Phone: Serum or plasma creatinine m easurement (mass/volume)on 12-28-2021 Creatinine [Mass/Vol] 0.59 mg/dL 0.70-1.30 [facility] Work Phone: Comment on above: The validity of the calculated GFR & GFRAA in patients over 70 years has not been determined. Clinical correlation is essential. Serum or plasma urea nitroge n measurement (mass/volume)on 12-28-2021 Urea nitrogen [Mass/Vol] 20 mg/dL 7-[address] [facility] Work Phone: Thin prep Papanicolaou smear with manual screeningon 12-28-2021 Thin prep Papanicolaou smear with manual screening 5 5-[address] [facility] Work Phone: CULTURE BLOODon 12-27-2021 Microscopic examination of blood, culture CULTURE BLOOD --> Status: F No growth at 5 days. Normal [facility] Comment on above: Performed By: #### C /BLD #### [facility] [address] [place], [place] Laboratory - Coagulationon 0 12-26-2021 INR Coag (Bld) [Relative time] 1.7 {INR} [facility] Work Phone: Comment on above: Critical Value > 4.0 Whole blood prothrombin time on 12-26-2021 PT Coag (Bld) [Time] 20.8 s 11.7-14.9 [facility] Work Phone: Basic Metabolic Panelon 12-05 Calcium [Mass/Vol] 8.8 mg/dL Normal 8.4-10.4 [facility] Comment on above: Performed By: #### C RP2, ESR, HEMDF, BMP3 ####[facility] [address] [place], [place] Anion gap [Moles/Vol] 6 mmol/L Normal 3-13 [facility] Comment on above: Performed By: #### C RP2, ESR, HEMDF, BMP3 ####[facility] [address] [place], [place] CO2 [Moles/Vol] 27 mmol/L Normal 22-30 [facility] Comment on above: Performed By: #### C RP2, ESR, HEMDF, BMP3 ####[facility] [address] [place], [place] Glucose [Mass/Vol] 100 mg/dL Normal 70-100 [facility] Comment on above: Performed By: #### C RP2, ESR, HEMDF, BMP3 ####[facility] [address] [place], [place] Urea nitrogen [Mass/Vol] 18 mg/dL High 7-17 [facility] Comment on above: Performed By: #### C RP2, ESR, HEMDF, BMP3 ####[facility] [id number] [place], [place] Creatinine [Mass/Vol] 0.73 mg/dL Normal 0.52-1.25 [facility] Comment on above: Performed By: #### C RP2, ESR, HEMDF, BMP3 ####[facility] [address] [place], [place] eGFR OTHER > 90.0 Normal >60 [facility] Comment on above: Result Comment: KDIG [...] #### C RP2, ESR, HEMDF, BMP3 ####[facility] [address] [place], [place] GFR/1.73 sq M.predicted among blacks MDRD (S/P/Bld) [Vol rate/Area] mL/min/{1.73_m2} Normal >60 [facility] Comment on above: Performed By: #### C RP2, ESR, HEMDF, BMP3 ####[facility] [place], [place] Potassium [Moles/Vol] 3.7 mmol/L Normal 3.5-5.1 [facility] Comment on above: Performed By: #### C RP2, ESR, HEMDF, BMP3 ####[facility] [address] [place], [place] Chloride [Moles/Vol] 106 mmol/L Normal 98-107 [facility] Comment on above: Performed By: #### C RP2, ESR, HEMDF, BMP3 ####[facility] [place] [address] Sodium [Moles/Vol] 139 mmol/L Normal 135-145 [facility] Comment on above: Performed By: #### C RP2, ESR, HEMDF, BMP3 ####[facility] [place] [address] Anion gap [Moles/Vol] 6 mmol/L 3 - 13 mmol/L [facility] Calcium [Mass/Vol] 8.8 mg/dL 8.4 - 10. 4 mg/dL [facility] Chloride [Moles/Vol] 106 mmol/L 98 - 10 7 mmol/L [facility] CO2 [Moles/Vol] 27 mmol/L 22 - 30 mmol/L [facility] Creatinine [Mass/Vol] 0.73 mg/dL 0.52 - 1.25 mg/dL [facility] eGFR mL/min 60 - P INF mL/min [facility] EGFR IF NonAfrican Cape Verdean mL/min 60 - PINF mL/min [facility] Comment on above: KDIGO guidelines pro [...] Basophil percentage 25-50 SEEN /hpf 0-5 [facility] Work Phone: Chloride [Moles/Vol] 106 mmol/L 98-[address] [facility] Work Phone: Glucose [Mass/Vol] 93 mg/dL 74-106 [facility] Work [facility]: [phone] Potassium [Moles/Vol] 3.5 mmol/L 3.5-5.1 [address] [facility] Work Phone: Sodium [Moles/Vol] 140 mmol/L 136-145 [facility] Work Phone: WBC (Bld) [#/Vol] 9.6 10*3/uL 4.4-11.0 [facility] Work Phone: Bilirubin Test strip Ql (U)o n 12-22-2021 Bilirubin Ql (U) Negative Negative [facility] Work Phone: Blood erythrocytes count (nu mber/volume)on 12-22-2021 RBC (Bld) [#/Vol] 4.34 10*6/uL 4.6-6.2 [facility] Work Phone: Blood hemoglobin measurement (mass/volume)on 12-22-2021 Hemoglobin (Bld) [Mass/Vol] 11.5 g/dL 13.0-16.[address] [facility] Work Phone: Blood platelet mean volumeon 12-22-2021 Platelet mean volume (Bld) [Entitic vol] 10.8 fL 6.2-12.[address] [facility] Work Phone: C-Reactive Proteinon 022 CRP [Mass/Vol] 27.2 mg/L High 0.0-9.9 [employer] Comment on above: Result Comment: . Performed By: #### C RP2, ESR, HEMDF, BMP3 ####[email or web address] [id number] [place] [address] CRP [Mass/Vol] 27.2 mg/L High 0 - 9.9 mg/L [employer] Comment on above: . CBC with Auto [...] - 10.7 10*3/uL [facility] Test Performed by [address] [address] [facility] COVID-19, Flu A/B, and RSV C omboon 12-22-2021 Influenza A by PCR Not detected [facility] A Influenza B by PCR Not detected [facility] A RSV PCR Not Detected. Expected Result: Not Detected _ Method: Real-time, RT-PCR This assay was developed by [employer] and distributed under an Emergency Use Authorization (EUA) granted by the FDA for the qualitative detection of nucleic acids from SARS-CoV-2, Influenza A, Influenza B, and Respiratory Syncytial Virus. Provider and patient fact sheets can be found at https://www.fda.gov/media /358865/download and https://www.fda.gov/media /387389/download. [facility] SARS-CoV-2 (COVID-19) RNA MEGAN+probe Ql (Unsp spec) Not detected [facility] Test Performed by [address] [address] [facility] CR Foot Complete 3+ Views Le fton 12-22-2021 CR Foot Complete 3+ Views Left Patient Name: ANDREW SIFUENTES Diagnostic Radiology ACCESSION EXAM DATE/TIME PROCEDURE ORDERING PROVIDER [id number] 12/22/2021 00:09 EDT CR Foot Complete 3+ SANDY HIDALGO JOHN M Views Left CPT code 47703 Reason For Exam (CR Foot Complete 3+ [...] Date and Time: 12/22/2021 0:21 Normal [facility] Calcium oxalate crystals det ection in urine sediment by light microscopyon 12-22-2021 Calcium oxalate crystals LM Ql (Urine sed) 1+ /hpf [facility] Work Phone: Determination of erythrocyte mean corpuscular volume (MCV)on 12-22-2021 MCV (RBC) [Entitic vol] 84.3 fL 80-[address] [facility] Work Phone: ED Provider Noteon 2 [...] leg for a while. According to EMS correction staff completed x-ray of the lower extremity and there was concern for osteomyelitis hence transferring patient to the hospital. Patient states this time the wounds on the left lower extremity for extended period of time. He denies fevers or chills. Patient states correction staff have been taking care of the wound for him. Focused exam: Blood pressure 108/67, pulse 77, temperature 97.9 ?F (36.6 ?C), temperature source Oral, resp. rate 16, height 5' 9" (1.753 m), weight 79.4 kg (175 lb), SpO2 96 %. [id number] in no acute distress. Alert and oriented [...] [employer] Sharon Olivia MD 12/22/21 0305 [facility] ED Provider Note [facility] EMERGENCY DEPT EMERGENCY DEPARTMENT ENCOUNTER Pt Name: Andrew Sifuentes Birthdate 1950 Date of evaluation: 12/21/2021 Provider: SANIA Lou CHIEF COMPLAINT Chief Complaint Patient presents with Osteomyelitis Patient from [facility], [facility] did xrays on left lower leg and and have concerns for possible osteomyelitis A&Ox2 to self and place, stated year 2022 preside Miss martini HISTORY OF PRESENT ILLNESS (Location/Symptom, Timing/Onset, Context/Setting, Quality,Duration, Modifying Factors, Severity) Note limiting factors. HPI I have seen this patient With supervising physician Does this patient come from an ECF, SNF, Rehab, Longterm or other Congregate setting: no (If yes [...] Hemorrhoids Hydrocephalus, adult (HCC) Kidney stone Neuropathy RN INVASIVE (ventriculoperitoneal) shunt status SURGICAL HISTORY Past Surgical [...] Tenderness: (more content not included)... Normal [facility] Hematocrit Auto (Bld) [Volum e fraction]on 12-22-2021 Hematocrit (Bld) [Volume fraction] 36.6 % 40-[address] [facility] Work Phone: Hemogram w/ Autodiffon 12-22 Abs Baso Cnt 0.1 10*3/uL Normal 0.0-0.2 [facility] Comment on above: Performed By: #### C RP2, ESR, HEMDF, BMP3 ####[facility] [address] [place] [address] Abs Neutrophile Cnt 5.9 10*3/uL Normal 1.8-7.0 [facility] Comment on above: Performed By: #### C RP2, ESR, HEMDF, BMP3 ####[address] Basophils/100 WBC (Bld) 0.7 % Normal 0.0-2.0 [facility] Comment on above: Performed By: #### C RP2, ESR, HEMDF, BMP3 ####[address] Eosinophils (Bld) [#/Vol] 0.2 10*3/uL Normal 0.0-0.5 [facility] Comment on above: Performed By: #### C RP2, ESR, HEMDF, BMP3 ####[address] Eosinophils/100 WBC (Bld) 2.3 % Normal 1.0-6.0 [facility] Comment on above: Performed By: #### C RP2, ESR, HEMDF, BMP3 ####[address] Erythrocyte distribution width (RBC) [Ratio] 17.5 % High 11.5-14.5 [facility] Comment on above: Performed By: #### C RP2, ESR, HEMDF, BMP3 ####[address] Granulocytes/100 WBC (Bld) 57.8 % Normal 40.0-80.0 [facility] Comment on above: Performed By: #### C RP2, ESR, HEMDF, BMP3 ####[address] Hematocrit (Bld) [Volume fraction] 33.3 % Low 40.0-52.0 [facility] Comment on above: Performed By: #### C RP2, ESR, HEMDF, BMP3 ####[address] Hemoglobin (Bld) [Mass/Vol] 11.0 g/dL Low 13.0-18.0 [facility] Comment on above: Performed By: #### C RP2, ESR, HEMDF, BMP3 ####[address] Lymphocytes (Bld) [#/Vol] 3.3 10*3/uL Normal 1.0-4.3 [facility] Comment on above: Performed By: #### C RP2, ESR, HEMDF, BMP3 ####[address] Lymphocytes/100 WBC (Bld) 33.0 % Normal 20.0-40.0 [facility] Comment on above: Performed By: #### C RP2, ESR, HEMDF, BMP3 ####[address] MCH (RBC) [Entitic mass] 26.5 pg Normal 26.0-34.0 [facility] Comment on above: Performed By: #### C RP2, ESR, HEMDF, BMP3 ####[address] MCHC 33.1 % Normal 32.0-36.0 [facility] Comment on above: Performed By: #### C RP2, ESR, HEMDF, BMP3 ####[address] MCV (RBC) [Entitic vol] 80.2 fL Normal 80.0-98.0 [facility] Comment on above: Performed By: #### C RP2, ESR, HEMDF, BMP3 ####[address] Monocytes (Bld) [#/Vol] 0.6 10*3/uL Normal 0.0-0.8 [facility] Comment on above: Performed By: #### C RP2, ESR, HEMDF, BMP3 ####[address] Monocytes/100 WBC (Bld) 6.2 % Normal 2.0-10.0 [facility] Comment on above: Performed By: #### C RP2, ESR, HEMDF, BMP3 ####[facility] [address] [place], [place] Platelet mean volume (Bld) [Entitic vol] 8.0 fL Normal 7.4-12.4 [facility] Comment on above: Result Comment: MPV is a calculated measurement using platelet volume ratio. Performed By: #### C RP2, ESR, HEMDF, BMP3 ####[facility] [address] [place], [place] Platelets (Bld) [#/Vol] 368 10*3/uL Normal 140-440 [facility] Comment on above: Performed By: #### C RP2, ESR, HEMDF, BMP3 ####[id number] [place], [place] RBC (Bld) [#/Vol] 4.15 10*6/uL Low 4.40-5.90 [facility] Comment on above: Performed By: #### C RP2, ESR, HEMDF, BMP3 ####[facility] [address] [place], [place] WBC (Bld) [#/Vol] 10.1 10*3/uL Normal 3.6-10.7 [facility] Comment on above: Performed By: #### C RP2, ESR, HEMDF, BMP3 ####[facility] [id number] [place], [place] Ketones Test strip Ql (U)on 12-22-2021 Ketones Ql (U) Negative Negative [facility] Work Phone: Laboratory - Chemistry and C hemistry - challengeon 12-22-2021 CO2 [Moles/Vol] 27.0 mmol/L 21.0-32.[address] [facility] Work Phone: Urea nitrogen/Creatinine [Mass ratio] 22.5 mg/mg 10-[address] [facility] Work Phone: Laboratory - Hematology and Cell countson 12-22-2021 Erythrocyte distribution width (RBC) [Entitic vol] 49.1 fL 35.1-43.[address] [facility] Work Phone: Erythrocyte distribution width (RBC) [Ratio] 16.1 % 11.6-14.[address] [facility] Work Phone: MCH (RBC) [Entitic mass] 26.5 pg 27.0-32.[address] [facility] Work Phone: MCHC Auto (RBC) [Mass/Vol]on 12-22-2021 MCHC (RBC) [Mass/Vol] 31.4 g/dL 32-36 [facility] Work Phone: Mucus LM Ql (Urine sed)on Mucus Ql (Urine sed) 0 SEEN /hpf [facility] Work Phone: Nitrite Test strip Ql (U)on 12-22-2021 Nitrite Ql (U) Positive Negative [facility] Work Phone: No Panel Informationon 12-22 Estimated GFR (MDRD) Amer 152 mL/min >[address] [facility] Work Phone: Comment on above: GFR Calc Estimated GFR (MDRD) Non-Af Amer 125 mL/min >[address] [facility] Work Phone: Comment on above: Non- GFR Calc Interpretation and review of laboratory results Abnormal [facility] Test Performed by [facility], [address] [place] [id number] [facility] Platelets bldon 12-22-2021 Platelets (Bld) [#/Vol] 317 10*3/uL 150-[address] [facility] Work Phone: Protein Test strip Ql (U)on 12-22-2021 Protein Ql (U) 30 mg/dl Negative [facility] Work Phone: SARS-CoV-2, Flu A/B and RSVo n 12-22-2021 SARS-CoV-2 (COVID-19) RNA MEGAN+probe Ql (Unsp spec) SARS-CoV-2 --> Status: F Not Detected. Flu A PCR --> Status: F Not Detected. Flu B PCR --> Status: F Not Detected. RSV PCR --> Status: F Not Detected. Expected Result: Not Detected _ Method: Real-time, RT-PCR This assay was developed by [employer] and distributed under an Emergency Use Authorization (EUA) granted by the FDA for the qualitative detection of nucleic acids from SARS-CoV-2, Influenza A, Influenza B, and Respiratory Syncytial Virus. Provider and patient fact sheets can be found at https://www.fda.gov/media /669686/download and https://www.fda.gov/media /188975/download. Expected Result: Not Detected _ Method: Real-time, RT-PCR This assay was developed by [employer] and distributed under an Emergency Use Authorization (EUA) granted by the FDA for the qualitative detection of nucleic acids from SARS-CoV-2, Influenza A, Influenza B, and Respiratory Syncytial Virus. Provider and patient fact sheets can be found at https://www.[employer].gov/media /163745/download and https://www.[employer].gov/media /168105/download. Normal [facility] Comment on above: Performed By: #### C VFLR ####[address] [place] [address], [address] Sed Rateon 12-22-2021 Sed Rate 48 mm/h High 0-10 [facility] Comment on above: Performed By: #### C RP2, ESR, HEMDF, BMP3 ####[address] [place] [address] Sedimentation Rateon 022 Interpretation and review of laboratory results Abnormal [facility] Sed Rate 48 mm/h High 0 - 10 mm/h [facility] Test Performed by [facility], [address] [place] [address] [facility] Serum or plasma calcium oral urement (mass/volume)on 12-22-2021 Calcium [Mass/Vol] 8.6 mg/dL 8.5-10.1 [facility] Work Phone: Serum or plasma creatinine m easurement (mass/volume)on 12-22-2021 Creatinine [Mass/Vol] 0.67 mg/dL 0.70-1.30 [facility] Work Phone: Comment on above: The validity of the calculated GFR & GFRAA in patients over 70 years has not been determined. Clinical correlation is essential. Serum or plasma urea nitroge n measurement (mass/volume)on 12-22-2021 Urea nitrogen [Mass/Vol] 15 mg/dL - [facility] Work Phone: Squamous epithelial cells de tection in urine sediment by light microscopyon 12-22-2021 Epithelial cells.squamous LM Ql (Urine sed) 0-5 SEEN /hpf 0-[address] [facility] Work Phone: Thin prep Papanicolaou smear with manual screeningon 12-22-2021 Thin prep Papanicolaou smear with manual screening 7 5-[address] [facility] Work Phone: Urine blood detectionon 12-05 RBC Ql (U) 150 /ul Negative [facility] Work Phone: RBC Ql (U) 10-25 SEEN /hpf 0-[address] [facility] Work Phone: Urine clarityon 12-22-2021 Clarity (U) Sl. Cloudy Clear [facility] Work Phone: Urine color determinationon 12-22-2021 Color (U) Yellow Yellow [facility] Work Phone: Urine glucose detectionon Glucose Ql (U) Normal mg/dl Normal [facility] Work Phone: Urine leukocyte esterase det ection by dipstickon 12-22-2021 Leukocyte esterase Test strip Ql (U) 500 /ul Negative [facility] Work Phone: Urine pHon 12-22-2021 pH (U) 6.0 [pH] 5.0 - 8.[address] [facility] Work Phone: Urine sediment bacteria coun t by microscopy (number/high power field)on 12-22-2021 Bacteria LM.HPF (Urine sed) [#/Area] 2 /[HPF] None Seen [facility] Work Phone: Urine specific gravity measu rementon 12-22-2021 Specific gravity (U) [Rel density] 1.020 1.002-1.[address] [facility] Work Phone: Urobilinogen Auto test strip Ql (U)on 12-22-2021 Urobilinogen Ql (U) Normal mg/dl Normal [facility] Work Phone: XR FOOT LEFT (MIN 3 VIEWS)on 12-22-2021 Patient Name: ANDREW SIFUENTES Diagnostic Radiology ACCESSION EXAM DATE/TIME PROCEDURE ORDERING PROVIDER [id number] 12/22/2021 00:09 EDT CR Foot Complete 3+ SANDY HIDALGO, TRAVIS Views Left CPT code 99948 Reason For Exam (CR Foot Complete 3+ [...] JEFFREY Transcribed Date and Time: 12/22/2021 0:21 [facility] Albert Solano MD - 12/22/2021 Patient Name: ANDREW SIFUENTES Diagnostic Radiology ACCESSION EXAM DATE/TIME PROCEDURE ORDERING PROVIDER [id number] 12/22/2021 00:09 EDT CR Foot Complete 3+ SANDY HIDALGO, TRAVIS Views Left CPT code 35735 Reason For Exam (CR Foot Complete 3+ [...] JEFFREY Transcribed Date and Time: 12/22/2021 0:21 [facility] Work [facility]: Radiology Study observation (narrative) [facility] Work Phone: XR FOOT LEFT (MIN 3 VIEWS)Or dered By: Albert Solano on 12-22-2021 [facility] Work Phone: Basophil percentageon 2021 Chloride [Moles/Vol] 103 mmol/L 98-[address] [facility] Work Phone: Glucose [Mass/Vol] 92 mg/dL 74-106 [facility] Work Phone: Potassium [Moles/Vol] 3.5 mmol/L 3.5-5.1 [address] [facility] Work Phone: Sodium [Moles/Vol] 138 mmol/L 136-145 [facility] Work Phone: WBC (Bld) [#/Vol] 11.2 10*3/uL 4.4-11.0 [facility] Work Phone: Blood erythrocytes count (nu mber/volume)on 12-19-2021 RBC (Bld) [#/Vol] 4.50 10*6/uL 4.6-6.2 [facility] Work Phone: Blood hemoglobin measurement (mass/volume)on 12-19-2021 Hemoglobin (Bld) [Mass/Vol] 12.2 g/dL 13.0-16.[address] [facility] Work Phone: Blood platelet mean volumeon 12-19-2021 Platelet mean volume (Bld) [Entitic vol] 11.3 fL 6.2-12.[address] [facility] Work Phone: Determination of erythrocyte mean corpuscular volume (MCV)on 12-19-2021 MCV (RBC) [Entitic vol] 85.6 fL 80-[address] [facility] Work Phone: Hematocrit Auto (Bld) [Volum e fraction]on 12-19-2021 Hematocrit (Bld) [Volume fraction] 38.5 % 40-[address] [facility] Work Phone: Laboratory - Chemistry and C hemistry - challengeon 12-19-2021 CO2 [Moles/Vol] 30.0 mmol/L 21.0-32.[address] [facility] Work Phone: Urea nitrogen/Creatinine [Mass ratio] 27.1 mg/mg 10-[address] [facility] Work Phone: Laboratory - Hematology and Cell countson 12-19-2021 Erythrocyte distribution width (RBC) [Entitic vol] 50.5 fL 35.1-43.[address] [facility] Work Phone: Erythrocyte distribution width (RBC) [Ratio] 16.0 % 11.6-14.[address] [facility] Work Phone: MCH (RBC) [Entitic mass] 27.1 pg 27.0-32.[address] [facility] Work Phone: MCHC Auto (RBC) [Mass/Vol]on 12-19-2021 MCHC (RBC) [Mass/Vol] 31.7 g/dL 32-36 [facility] Work Phone: No Panel Informationon 12-19 Estimated GFR (MDRD) Amer 153 mL/min >[address] [facility] Work Phone: Comment on above: GFR Calc Estimated GFR (MDRD) Non-Af Amer 126 mL/min >[address] [facility] Work Phone: Comment on above: Non- GFR Calc Platelets bldon 12-19-2021 Platelets (Bld) [#/Vol] 363 10*3/uL 150-[address] [facility] Work Phone: Serum or plasma calcium oral urement (mass/volume)on 12-19-2021 Calcium [Mass/Vol] 9.5 mg/dL 8.5-10.1 [facility] Work Phone: Serum or plasma creatinine m easurement (mass/volume)on 12-19-2021 Creatinine [Mass/Vol] 0.66 mg/dL 0.70-1.30 [facility] Work Phone: Comment on above: The validity of the calculated GFR & GFRAA in patients over 70 years has not been determined. Clinical correlation is essential. Serum or plasma urea nitroge n measurement (mass/volume)on 12-19-2021 Urea nitrogen [Mass/Vol] 18 mg/dL 7-[address] [facility] Work Phone: Thin prep Papanicolaou smear with manual screeningon 12-19-2021 Thin prep Papanicolaou smear with manual screening 5 5-[address] [facility] Work Phone: Laboratory - Coagulationon 0 12-12-2021 INR Coag (Bld) [Relative time] 2.0 {INR} [facility] Work Phone: Comment on above: Critical Value > 4.0 Whole blood prothrombin time on 12-12-2021 PT Coag (Bld) [Time] 23.9 s 11.7-14.9 [facility] Work Phone: ANES POSTPROC EVALon 022 ANES POSTPROC EVAL Normal [facility] Laboratory - Coagulationon 0 12-08-2021 INR Coag (Bld) [Relative time] 1.8 {INR} [facility] Work Phone: [phone] Comment on above: Critical Value > 4.0 Whole blood prothrombin time on 12-08-2021 PT Coag (Bld) [Time] 21.0 s 11.7-14.9 [facility] Work Phone: Absolute lymphocyte counton 12-05-2021 Lymphocytes Auto (Unsp spec) [#/Vol] 2.97 10*3/uL 0.83-4.[address] [facility] Work Phone: Basophil percentageon 2021 Basophils/100 WBC (Bld) 0.6 % 0-[address] [facility] Work Phone: Chloride [Moles/Vol] 106 mmol/L 98-107 [facility] Work Phone: Eosinophils/100 WBC (Bld) 2.3 % 0-[address] [facility] Work Phone: Glucose [Mass/Vol] 107 mg/dL 74-106 [facility] Work Phone: Comment on above: Fasting Glucose resu lt from 100 to 125 mg/dL suggests IMPAIRED HOMEOSTASIS per A.D.A. criteria. Neutrophils (Bld) [#/Vol] 5.6 10*3/uL 2.0-7.[address] [facility] Work Phone: Neutrophils/100 WBC (Bld) 60.2 % 47-[address] [facility] Work Phone: Potassium [Moles/Vol] 3.4 mmol/L 3.5-5.1 [facility] Work Phone: Sodium [Moles/Vol] 139 mmol/L 136-145 [facility] Work Phone: WBC (Bld) [#/Vol] 9.3 10*3/uL 4.4-11.0 [facility] Work Phone: Blood erythrocytes count (nu mber/volume)on 12-05-2021 RBC (Bld) [#/Vol] 4.49 10*6/uL 4.6-6.2 [facility] Work Phone: Blood hemoglobin measurement (mass/volume)on 12-05-2021 Hemoglobin (Bld) [Mass/Vol] 12.1 g/dL 13.0-16.[address] [facility] Work Phone: Blood lymphocytes/100 leukoc yteson 12-05-2021 Lymphocytes/100 WBC (Bld) 32.0 % 19-[address] [facility] Work Phone: Blood monocytes/100 leukocyt eson 12-05-2021 Monocytes/100 WBC (Bld) 4.7 % 0-[address] [facility] Work Phone: Blood platelet mean volumeon 12-05-2021 Platelet mean volume (Bld) [Entitic vol] 10.8 fL 6.2-12.[address] [facility] Work Phone: Determination of erythrocyte mean corpuscular volume (MCV)on 12-05-2021 MCV (RBC) [Entitic vol] 84.9 fL 80-[address] [facility] Work Phone: Hematocrit Auto (Bld) [Volum e fraction]on 12-05-2021 Hematocrit (Bld) [Volume fraction] 38.1 % 40-[address] [facility] Work Phone: INR in Blood by Coagulation assayon 12-05-2021 INR Coag (Bld) [Relative time] 1.8 {INR} [facility] Work Phone: Laboratory - Chemistry and C hemistry - challengeon 12-05-2021 CO2 [Moles/Vol] 29.0 mmol/L 21.0-32.[address] [facility] Work Phone: Urea nitrogen/Creatinine [Mass ratio] 25.4 mg/mg 10-[address] [facility] Work Phone: Laboratory - Coagulationon 0 12-05-2021 PT Coag (PPP) [Time] 20.5 s 11.7-14.9 [facility] Work Phone: Laboratory - Hematology and Cell countson 12-05-2021 Erythrocyte distribution width (RBC) [Entitic vol] 48.5 fL 35.1-43.[address] [facility] Work Phone: Erythrocyte distribution width (RBC) [Ratio] 15.7 % 11.6-14.[address] [facility] Work Phone: Immature granulocytes/100 WBC (Bld) 0.200 % 0.0-0.[address] [facility] Work Phone: Comment on above: IG% - Immature Granu locytes (promyelocytes, myelocytes and metamyelocytes) > 1% indicates that a LEFT SHIFT is Present. MCH (RBC) [Entitic mass] 26.9 pg 27.0-32.[address] [facility] Work Phone: Nucleated RBC/100 WBC (Bld) [Ratio] 0 % 0-[address] [facility] Work Phone: MCHC Auto (RBC) [Mass/Vol]on 12-05-2021 MCHC (RBC) [Mass/Vol] 31.8 g/dL 32-36 [facility] Work Phone: No Panel Informationon 12-05 Estimated GFR (MDRD) Amer 133 mL/min >[address] [facility] Work Phone: Comment on above: GFR Calc Estimated GFR (MDRD) Non-Af Amer 110 mL/min >[address] [facility] Work Phone: Comment on above: Non- GFR Calc Platelets bldon 12-05-2021 Platelets (Bld) [#/Vol] 363 10*3/uL 150-[address] [facility] Work Phone: Serum or plasma calcium oral urement (mass/volume)on 12-05-2021 Calcium [Mass/Vol] 9.4 mg/dL 8.5-10.1 [facility] Work Phone: Serum or plasma creatinine m easurement (mass/volume)on 12-05-2021 Creatinine [Mass/Vol] 0.75 mg/dL 0.70-1.30 [facility] Work Phone: Comment on above: The validity of the calculated GFR & GFRAA in patients over 70 years has not been determined. Clinical correlation is essential. Serum or plasma urea nitroge n measurement (mass/volume)on 12-05-2021 Urea nitrogen [Mass/Vol] 19 mg/dL 7-[address] [facility] Work Phone: Thin prep Papanicolaou smear with manual screeningon 12-05-2021 Thin prep Papanicolaou smear with manual screening 4 5-[address] [facility] Work Phone: Basophil percentageon 2021 Basophil percentage 0 SEEN /hpf 0-5 [facility] Work Phone: Chloride [Moles/Vol] 104 mmol/L 98-107 [facility] Work Phone: Glucose [Mass/Vol] 90 mg/dL 74-106 [facility] Work Phone: Potassium [Moles/Vol] 3.7 mmol/L 3.5-5.1 [facility] Work Phone: Comment on above: Slight Hemolysis, Re sult may be falsely increased. Sodium [Moles/Vol] 138 mmol/L 136-145 [facility] Work Phone: WBC (Bld) [#/Vol] 10.7 10*3/uL 4.4-11.0 [facility] Work Phone: Bilirubin Test strip Ql (U)o n 12-01-2021 Bilirubin Ql (U) Negative Negative [facility] Work Phone: Blood erythrocytes count (nu mber/volume)on 12-01-2021 RBC (Bld) [#/Vol] 4.33 10*6/uL 4.6-6.2 [facility] Work Phone: Blood hemoglobin measurement (mass/volume)on 12-01-2021 Hemoglobin (Bld) [Mass/Vol] 11.6 g/dL 13.0-16.[address] [facility] Work Phone: Blood platelet mean volumeon 12-01-2021 Platelet mean volume (Bld) [Entitic vol] 11.2 fL 6.2-12.[address] [facility] Work Phone: Determination of erythrocyte mean corpuscular volume (MCV)on 12-01-2021 MCV (RBC) [Entitic vol] 85.2 fL 80-[address] [facility] Work Phone: Hematocrit Auto (Bld) [Volum e fraction]on 12-01-2021 Hematocrit (Bld) [Volume fraction] 36.9 % 40-[address] [facility] Work Phone: Ketones Test strip Ql (U)on 12-01-2021 Ketones Ql (U) Negative Negative [facility] Work Phone: Laboratory - Chemistry and C hemistry - challengeon 12-01-2021 CO2 [Moles/Vol] 27.0 mmol/L 21.0-32.[address] [facility] Work Phone: Urea nitrogen/Creatinine [Mass ratio] 24.0 mg/mg 10-[address] [facility] Work Phone: Laboratory - Coagulationon 0 12-01-2021 INR Coag (Bld) [Relative time] 1.6 {INR} [facility] Work Phone: Comment on above: Critical Value > 4.0 Laboratory - Hematology and Cell countson 12-01-2021 Erythrocyte distribution width (RBC) [Entitic vol] 47.9 fL 35.1-43.[address] [facility] Work Phone: Erythrocyte distribution width (RBC) [Ratio] 15.5 % 11.6-14.[address] [facility] Work Phone: MCH (RBC) [Entitic mass] 26.8 pg 27.0-32.[address] [facility] Work Phone: MCHC Auto (RBC) [Mass/Vol]on 12-01-2021 MCHC (RBC) [Mass/Vol] 31.4 g/dL 32-36 [facility] Work Phone: Mucus LM Ql (Urine sed)on Mucus Ql (Urine sed) 0 SEEN /hpf [facility] Work Phone: Nitrite Test strip Ql (U)on 12-01-2021 Nitrite Ql (U) Negative Negative [facility] Work Phone: No Panel Informationon 12-01 Estimated GFR (MDRD) Amer 133 mL/min >[address] [facility] Work Phone: Comment on above: GFR Calc Estimated GFR (MDRD) Non-Af Amer 110 mL/min >[address] [facility] Work Phone: Comment on above: Non- GFR Calc Platelets bldon 12-01-2021 Platelets (Bld) [#/Vol] 336 10*3/uL 150-[address] [facility] Work Phone: Protein Test strip Ql (U)on 12-01-2021 Protein Ql (U) 30 mg/dl Negative [facility] Work Phone: Serum or plasma calcium oral urement (mass/volume)on 12-01-2021 Calcium [Mass/Vol] 9.4 mg/dL 8.5-10.1 [facility] Work Phone: Serum or plasma creatinine m easurement (mass/volume)on 12-01-2021 Creatinine [Mass/Vol] 0.75 mg/dL 0.70-1.30 [facility] Work Phone: Comment on above: The validity of the calculated GFR & GFRAA in patients over 70 years has not been determined. Clinical correlation is essential. Serum or plasma urea nitroge n measurement (mass/volume)on 12-01-2021 Urea nitrogen [Mass/Vol] 18 mg/dL 7-[address] [facility] Work Phone: Squamous epithelial cells de tection in urine sediment by light microscopyon 12-01-2021 Epithelial cells.squamous LM Ql (Urine sed) 0-5 SEEN /hpf 0-[address] [facility] Work Phone: Thin prep Papanicolaou smear with manual screeningon 12-01-2021 Thin prep Papanicolaou smear with manual screening 7 5-[address] [facility] Work Phone: Urine blood detectionon - RBC Ql (U) Negative Negative [facility] Work Phone: RBC Ql (U) 0 SEEN /hpf 0-[address] [facility] Work Phone: Urine clarityon 12-01-2021 Clarity (U) Clear Clear [facility] Work Phone: Urine color determinationon 12-01-2021 Color (U) Yellow Yellow [facility] Work Phone: Urine glucose detectionon Glucose Ql (U) 50 mg/dl Normal [facility] Work Phone: Urine leukocyte esterase det ection by dipstickon 12-01-2021 Leukocyte esterase Test strip Ql (U) Negative Negative [facility] Work Phone: Urine pHon 12-01-2021 pH (U) 6.0 [pH] 5.0 - 8.[address] [facility] Work Phone: Urine sediment bacteria coun t by microscopy (number/high power field)on 12-01-2021 Bacteria LM.HPF (Urine sed) [#/Area] 0 /[HPF] None Seen [facility] Work Phone: Urine sediment yeast count b y microscopy (number/high powered field)on 12-01-2021 Yeast LM.HPF (Urine sed) [#/Area] 2 /[HPF] None Seen [facility] Work Phone: Urine specific gravity measu rementon 12-01-2021 Specific gravity (U) [Rel density] 1.010 1.002-1.[address] [facility] Work Phone: Urobilinogen Auto test strip Ql (U)on 12-01-2021 Urobilinogen Ql (U) Normal mg/dl Normal [facility] Work Phone: Whole blood prothrombin time on 12-01-2021 PT Coag (Bld) [Time] 19.8 s 11.7-14.9 [facility] Work Phone: Laboratory - Coagulationon 0 11-28-2021 INR Coag (Bld) [Relative time] 1.6 {INR} [facility] Work Phone: Comment on above: Critical Value > 4.0 Whole blood prothrombin time on 11-28-2021 PT Coag (Bld) [Time] 18.8 s 11.7-14.9 [facility] Work Phone: INR in Blood by Coagulation assayon 11-23-2021 INR Coag (Bld) [Relative time] 2.7 {INR} [facility] Work Phone: Laboratory - Coagulationon 0 11-23-2021 PT Coag (PPP) [Time] 28.0 s 11.7-14.9 [facility] Work Phone: Laboratory - Coagulationon 0 11-22-2021 INR Coag (Bld) [Relative time] 3.8 {INR} [facility] Work Phone: Comment on above: Critical Value > 4.0 Whole blood prothrombin time on 11-22-2021 PT Coag (Bld) [Time] 42.8 s 11.7-14.9 [facility] Work Phone: INR in Blood by Coagulation assayon 11-21-2021 INR Coag (Bld) [Relative time] 3.9 {INR} [facility] Work Phone: Laboratory - Coagulationon 0 11-21-2021 PT Coag (PPP) [Time] 37.7 s 11.7-14.9 [facility] Work Phone: Whole blood prothrombin time on 11-21-2021 PT Coag (Bld) [Time] 45.5 s 11.7-14.9 [facility] Work Phone: INR in Blood by Coagulation assayon 11-14-2021 INR Coag (Bld) [Relative time] 3.1 {INR} [facility] Work Phone: Laboratory - Coagulationon 0 11-14-2021 PT Coag (PPP) [Time] 31.4 s 11.7-14.9 [facility] Work Phone: Laboratory - Coagulationon 0 11-08-2021 INR Coag (Bld) [Relative time] 2.5 {INR} [facility] Work Phone: Comment on above: Critical Value > 4.0 Whole blood prothrombin time on 11-08-2021 PT Coag (Bld) [Time] 29.0 s 11.7-14.9 [facility] Work Phone: Basophil percentageon 2021 Chloride [Moles/Vol] 106 mmol/L 98-107 [facility] Work Phone: Glucose [Mass/Vol] 100 mg/dL 74-106 [facility] Work Phone: Comment on above: Fasting Glucose resu lt from 100 to 125 mg/dL suggests IMPAIRED HOMEOSTASIS per A.D.A. criteria. Potassium [Moles/Vol] 3.7 mmol/L 3.5-5.1 [facility] Work Phone: Sodium [Moles/Vol] 140 mmol/L 136-145 [facility] Work Phone: WBC (Bld) [#/Vol] 8.8 10*3/uL 4.4-11.0 [facility] Work Phone: Blood erythrocytes count (nu mber/volume)on 11-04-2021 RBC (Bld) [#/Vol] 4.05 10*6/uL 4.6-6.2 [facility] Work Phone: Blood hemoglobin measurement (mass/volume)on 11-04-2021 Hemoglobin (Bld) [Mass/Vol] 11.1 g/dL 13.0-16.[address] [facility] Work Phone: Blood platelet mean volumeon 11-04-2021 Platelet mean volume (Bld) [Entitic vol] 10.8 fL 6.2-12.[address] [facility] Work Phone: Determination of erythrocyte mean corpuscular volume (MCV)on 11-04-2021 MCV (RBC) [Entitic vol] 86.9 fL 80-[address] [facility] Work Phone: Hematocrit Auto (Bld) [Volum e fraction]on 11-04-2021 Hematocrit (Bld) [Volume fraction] 35.2 % 40-[address] [facility] Work Phone: INR in Blood by Coagulation assayon 11-04-2021 INR Coag (Bld) [Relative time] 1.8 {INR} [facility] Work Phone: Laboratory - Chemistry and C hemistry - challengeon 11-04-2021 CO2 [Moles/Vol] 26.0 mmol/L 21.0-32.[address] [facility] Work Phone: Urea nitrogen/Creatinine [Mass ratio] 18.3 mg/mg 10-[address] [facility] Work Phone: Laboratory - Coagulationon 0 11-04-2021 PT Coag (PPP) [Time] 20.4 s 11.7-14.9 [facility] Work Phone: Laboratory - Hematology and Cell countson 11-04-2021 Erythrocyte distribution width (RBC) [Entitic vol] 48.1 fL 35.1-43.[address] [facility] Work Phone: Erythrocyte distribution width (RBC) [Ratio] 15.0 % 11.6-14.[address] [facility] Work Phone: MCH (RBC) [Entitic mass] 27.4 pg 27.0-32.[address] [facility] Work Phone: MCHC Auto (RBC) [Mass/Vol]on 11-04-2021 MCHC (RBC) [Mass/Vol] 31.5 g/dL 32-36 [facility] Work Phone: No Panel Informationon 11-04 D-Dimer Quantitative (PE/DVT) 0.56 FEU/ug/m 0.27-0.[address] [facility] Work Phone: Comment on above: D-Dimer ELEVATED (>0 .49): Additional studies and clinicalassessments are indicated to conclude diagnosis of:Deep Vein Thrombosis (DVT) or Pulmonary Embolism (PE) Estimated GFR (MDRD) Amer 155 mL/min >[address] [facility] Work Phone: Comment on above: GFR Calc Estimated GFR (MDRD) Non-Af Amer 128 mL/min >[address] [facility] Work Phone: Comment on above: Non- GFR Calc Troponin I High Sensitivity 11 pg/mL 3.0-78.[address] [facility] Work Phone: Comment on above: Please Note: New Fadumo t Units and Gender Specific Reference Ranges. For more information see Policy Stat Procedure [place] High Sensitivity Troponin (TNIH) and attachments. Platelets bldon 11-04-2021 Platelets (Bld) [#/Vol] 364 10*3/uL 150-[address] [facility] Work Phone: Serum or plasma C reactive p rotein measurement (mass/volume)on 11-04-2021 CRP [Mass/Vol] 31.90 mg/L 0.0-3.[address] [facility] Work Phone: Comment on above: C-Reactive Protein ( CRP) provides useful information for thediagnosis, therapy and monitoring of inflammatory processesand associated diseases. For the evaluation of Relative Riskfor Cardiovascular Disease, a High Sensitivity CRP (HSCRP)should be ordered. Serum or plasma calcium oral urement (mass/volume)on 11-04-2021 Calcium [Mass/Vol] 9.1 mg/dL 8.5-10.1 [facility] Work Phone: Serum or plasma creatinine m easurement (mass/volume)on 11-04-2021 Creatinine [Mass/Vol] 0.66 mg/dL 0.70-1.30 [facility] Work Phone: Comment on above: The validity of the calculated GFR & GFRAA in patients over 70 years has not been determined. Clinical correlation is essential. Serum or plasma urea nitroge n measurement (mass/volume)on 11-04-2021 Urea nitrogen [Mass/Vol] 12 mg/dL 7-[address] [facility] Work Phone: Thin prep Papanicolaou smear with manual screeningon 11-04-2021 Thin prep Papanicolaou smear with manual screening 8 5-[address] [facility] Work Phone: Complete Urinalysison 2021 Appearance (U) Clear Normal Clear [facility] Comment on above: Result Comment: . Performed By: #### C UA2 ####[employer] [place], [place] Bacteria Moderate Abnormal Negative [facility] [employer] Comment on above: Result Comment: . Performed By: #### C UA2 ####[facility] [id number] [place], [place] Bilirubin,Urine Negative Normal Negative [facility] [employer] Comment on above: Result Comment: . Performed By: #### C UA2 ####[employer] [place], [place] Cast, Hyaline Negative Normal Negative [facility] Comment on above: Result Comment: . Performed By: #### C UA2 ####[email or web address] [id number] [place], [place] Color (U) Yellow Normal Lt. Yellow [facility] Comment on above: Result Comment: . Performed By: #### C UA2 ####[employer] [place], [place] Glucose Ql (U) Normal Normal Normal (<70) [facility] Comment on above: Result Comment: . Performed By: #### C UA2 ####[employer] [place], [place] Ketone,Urine Negative Normal Negative [facility] Comment on above: Result Comment: . Performed By: #### C UA2 ####[email or web address] [id number] [place], [place] Leukocytes,Urine Negative Normal Negative [facility] Comment on above: Result Comment: . Performed By: #### C UA2 ####[place] [id number] [place], [place] Mucous Threads Few Normal Negative [facility] Comment on above: Result Comment: . Performed By: #### C UA2 ####[id number] [place], [place] Nitrites,Urine Negative Normal Negative [facility] Comment on above: Result Comment: . Performed By: #### C UA2 ####[address] [place], [place] Occult Blood,Urine 0.1 mg/dL Abnormal Negative [facility] Comment on above: Result Comment: . Performed By: #### C UA2 ####[address] [place], [place] pH,Urine 5.5 Normal 5.0-8.0 [facility] Comment on above: Result Comment: . Performed By: #### C UA2 ####[address] [place], [place] Protein (U) [Mass/Vol] 10 mg/dL Abnormal Negative [facility] Comment on above: Result Comment: . Performed By: #### C UA2 ####[address] [place], [place] RBC, Urine 26 - 50 Abnormal 0-2 [facility] Comment on above: Result Comment: . Performed By: #### C UA2 ####[address] [place], [place] Specific Artesian,Urine 1.023 Normal 1.005 - 1.030 [facility] Comment on above: Result Comment: . Performed By: #### C UA2 ####[id number] . [place], [place] Squamous Epithelial Negative Normal 3-5 [facility] Comment on above: Result Comment: . Performed By: #### C UA2 ####[address] Urobilinogen,Urine Normal Normal Normal (0-1) [facility] Comment on above: Result Comment: . Performed By: #### C UA2 ####[facility] [place] [address] WBC, Urine 0 - 2 Normal 0-5 [facility] Comment on above: Result Comment: . Performed By: #### C UA2 ####[facility] [place] [address] Urinalysison 11-01-2021 Appearance (U) Clear Clear NA [...] Protein (U) [Mass/Vol] 10 mg/dL Abnormal Negative [facility] Comment on above: . RBC, UA 26-50 Abnormal 0 - 2 /[HPF] [facility] Comment on above: . Specific Artesian, Urine 1.023 [facility] Comment on above: . Squam Epithel, UA Negative 3 - 5 /[HPF] [facility] Comment on above: . Urobilinogen, Urine Normal Normal ( 0-1) mg/dL [facility] Comment on above: . WBC, UA 0-2 0 - 5 /[HPF] [facility] Comment on above: . Test Performed by [facility], [address] [place] [address] [facility] Basic Metabolic Panelon 10-06 Anion gap [Moles/Vol] 6 mmol/L Normal 3-13 [facility] Comment on above: Performed By: #### P T/AP, TROPN, BMP3, HEMDF #### [facility] [address] [place], [place] Calcium [Mass/Vol] 9.1 mg/dL Normal 8.4-10.4 [facility] Comment on above: Performed By: #### P T/AP, TROPN, BMP3, HEMDF #### [facility] [address] [place], [place] CO2 [Moles/Vol] 28 mmol/L Normal 22-30 [facility] Comment on above: Performed By: #### P T/AP, TROPN, BMP3, HEMDF #### [place] [address] [place], [place] Glucose [Mass/Vol] 120 mg/dL High 70-100 [facility] Comment on above: Performed By: #### P T/AP, TROPN, BMP3, HEMDF #### [place] [address] [place], [place] Urea nitrogen [Mass/Vol] 17 mg/dL Normal 7-17 [facility] Comment on above: Performed By: #### P T/AP, TROPN, BMP3, HEMDF #### [place] [address] [place], [place] Creatinine [Mass/Vol] 0.65 mg/dL Normal 0.52-1.25 [facility] Comment on above: Performed By: #### P T/AP, TROPN, BMP3, HEMDF #### [place] [address] [place], [place] eGFR OTHER > 90.0 Normal >60 [facility] Comment on above: Result Comment: KDIG [...] #### P T/AP, TROPN, BMP3, HEMDF #### [place] [address] [place], [place] GFR/1.73 sq M.predicted among blacks MDRD (S/P/Bld) [Vol rate/Area] mL/min/{1.73_m2} Normal >60 [facility] Comment on above: Performed By: #### P T/AP, TROPN, BMP3, HEMDF #### [place] [address] [place], [place] Potassium [Moles/Vol] 3.8 mmol/L Normal 3.5-5.1 [facility] Comment on above: Performed By: #### P T/AP, TROPN, BMP3, HEMDF #### [place] [address] [place], [place] Chloride [Moles/Vol] 101 mmol/L Normal 98-107 [facility] Comment on above: Performed By: #### P T/AP, TROPN, BMP3, HEMDF #### [place] [address] [place], [place] Sodium [Moles/Vol] 134 mmol/L Low 135-145 [facility] Comment on above: Performed By: #### P T/AP, TROPN, BMP3, HEMDF #### [place] [address] [place], [place] Anion gap [Moles/Vol] 6 mmol/L 3 - 13 mmol/L [facility] Calcium [Mass/Vol] 9.1 mg/dL 8.4 - 10. 4 mg/dL [facility] Chloride [Moles/Vol] 101 mmol/L 98 - 10 7 mmol/L [facility] CO2 [Moles/Vol] 28 mmol/L 22 - 30 mmol/L [facility] Creatinine [Mass/Vol] 0.65 mg/dL 0.52 - 1.25 mg/dL [facility] EGFR IF NonAfrican [place] >90.0 >60 mL/min [facility] Comment on above: [...] mg/dL [facility] Test Performed by [facility], [address] [place] [id number] [place] [address] LAB [facility] CBC with Auto Differentialon 10-31-2021 [...] 10*3/uL [facility] Test Performed by [facility], [address] [place] [id number] [place] [address] LAB [facility] CR Abdomen APon 10-31-2021 CR Abdomen AP Patient Name: ANDREW SIFUENTES Diagnostic Radiology ACCESSION EXAM DATE/TIME PROCEDURE ORDERING PROVIDER [id number] 10/31/2021 20:36 EDT CR Abdomen AP [id number] MARTÍNEZ CPT code 23611 Reason For Exam (CR Abdomen AP) vp [...] Date and Time: 10/31/2021 8:49 Normal [facility] CR Chest Portableon 11-01-19 CR Chest Portable Patient Name: ANDREW SIFUENTES Diagnostic Radiology ACCESSION EXAM DATE/TIME PROCEDURE ORDERING PROVIDER [id number] 10/31/2021 20:36 EDT CR Chest Portable [id number] MARTÍNEZ CPT code 70409 Reason For Exam (CR Chest Portable) AMS [...] Date and Time: 10/31/2021 8:49 Normal [facility] CT HEAD WO CONTRASTon 2021 Patient Name: ANDREW SIFUENTES Computed Tomography ACCESSION EXAM DATE/TIME PROCEDURE ORDERING PROVIDER [id number] 10/31/2021 20:[address] Head or Brain w/o [id number] -DURAN, MYRON Contrast CPT code 62727 Reason For Exam (CT Head or Brain w/o Contrast) AMS, previous RN INVASIVE shunt Report Examination: CT Head Clinical Information: AMS, previous RN INVASIVE shunt Comparison: 10/26/2021, MRI 10/27/2021 Findings: Serial [...] left anterior frontal regions unchanged from comparison. Buitrgao white differentiation is well preserved. There is [...] J Transcribed Date and Time: 10/31/2021 8:54 [facility] Carla Wong MD - 10/31/2021 Patient Name: ANDREW SIFUENTES Computed Tomography ACCESSION EXAM DATE/TIME PROCEDURE ORDERING PROVIDER [id number] 10/31/2021 20:[address] Head or Brain w/o [id number] -MYRON DURAN Contrast CPT code 19005 Reason For Exam (CT Head or Brain w/o Contrast) AMS, previous RN INVASIVE shunt Report Examination: CT Head Clinical Information: AMS, previous RN INVASIVE shunt Comparison: 10/26/2021, MRI 10/27/2021 Findings: Serial [...] Brain w/o Contrast [facility]: [id number] Tomography ACCESSION EXAM DATE/TIME PROCEDURE ORDERING PROVIDER [id number] 10/31/2021 20:[address] Head or Brain w/o [id number] -DURAN, MYRON Contrast CPT code 82180 Reason For Exam (CT Head or Brain w/o Contrast) AMS, previous RN INVASIVE shunt Report Examination: CT Head Clinical Information: AMS, previous RN INVASIVE shunt Comparison: 10/26/2021, MRI 10/27/2021 Findings: Serial [...] Date and Time: 10/31/2021 8:54 Normal [facility] ED Provider Noteon ED Provider Note Emergency Department Encounter [facility] EMERGENCY DEPT Patient: Andrew Sifuentes : 1950 [...] is cooperative and calm. According to the correction, he has been more lethargic than normal, [...] [employer] Dante Kim MD 10/31/21 5281 Normal [facility] ED Provider Note [facility] EM[facility]GENCY [facility]PT EMERGENCY DEPARTMENT ENCOUNTER Pt Name: Andrew Sifuentes Birthdate 1950 Date of evaluation: 10/31/2021 Provider: Myron Duran MD CHIEF COMPLAINT Chief Complaint Patient presents with ? Altered Mental Status Pt presents to ED via [facility] for complaint listed. Pt is from [place] [facility]. Pt's LKW was 1000 hours today. [...] have a history of hydrocephalus with a RN INVASIVE shunt. 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 REVIEW OF [...] (HCC) ? Kidney stone ? Neuropathy ? RN INVASIVE (ventriculoperitoneal) shunt status SURGICAL HISTORY Past Surgical [...] Transportati (more content not included)... 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 : 1950 Requested By: MYRON DURAN Order Number: [id number] Reading MD: Dante Kim Measurements Intervals [place] Rate: 91 P: 41 WI: 154 QRS: 50 QRSD: 147 T: 8 QT: 385 QTc: 474 Interpretive Statements Sinus rhythm Right bundle branch block Electronically Signed On 10-31-2021 20:36:25 EDT by Dante Kim [facility] Dante Kim M D - 10/31/2021 [facility] Test Date: 2021-10-31 Pat Name: ANDREW SIFUENTES Department: 1AER Room: 40 Gender: M 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 : 1950 Requested By: MYRON DURAN Order Number: [id number] Reading MD: Dante Kim Measurements Intervals [place] Rate: 91 P: 41 WI: 154 QRS: 50 QRSD: 147 T: 8 QT: 385 QTc: 474 Interpretive Statements Sinus rhythm Right bundle branch block Electronically Signed On 10-31-2021 20:36:25 EDT by Dante Kim [facility] Work Phone: EKG 12 Lead - Chest PainOrde red By: Dante Kim on 10-31-2021 [facility] Work Phone: Hemogram w/ Autodiffon 10-31 Abs Baso Cnt 0.1 10*3/uL Normal 0.0-0.2 [facility] Comment on above: Performed By: #### P T/AP, TROPN, BMP3, HEMDF #### [facility] [address] [place] [address] Abs Neutrophile Cnt 6.0 10*3/uL Normal 1.8-7.0 [facility] Comment on above: Performed By: #### P T/AP, TROPN, BMP3, HEMDF #### [place] [address] [place], [place] Basophils/100 WBC (Bld) 1.1 % Normal 0.0-2.0 [facility] Comment on above: Performed By: #### P T/AP, TROPN, BMP3, HEMDF #### [place] [address] [place], [place] Eosinophils (Bld) [#/Vol] 0.2 10*3/uL Normal 0.0-0.5 [facility] Comment on above: Performed By: #### P T/AP, TROPN, BMP3, HEMDF #### [address] Eosinophils/100 WBC (Bld) 2.3 % Normal 1.0-6.0 [facility] Comment on above: Performed By: #### P T/AP, TROPN, BMP3, HEMDF #### [address] Erythrocyte distribution width (RBC) [Ratio] 17.2 % High 11.5-14.5 [facility] Comment on above: Performed By: #### P T/AP, TROPN, BMP3, HEMDF #### [address] Granulocytes/100 WBC (Bld) 61.8 % Normal 40.0-80.0 [facility] Comment on above: Performed By: #### P T/AP, TROPN, BMP3, HEMDF #### [address] Hematocrit (Bld) [Volume fraction] 35.0 % Low 40.0-52.0 [facility] Comment on above: Performed By: #### P T/AP, TROPN, BMP3, HEMDF #### [address] Hemoglobin (Bld) [Mass/Vol] 11.3 g/dL Low 13.0-18.0 [facility] Comment on above: Performed By: #### P T/AP, TROPN, BMP3, HEMDF #### [place] [address] [place], [place] Lymphocytes (Bld) [#/Vol] 2.8 10*3/uL Normal 1.0-4.3 [facility] Comment on above: Performed By: #### P T/AP, TROPN, BMP3, HEMDF #### [place] [address] [place], [place] Lymphocytes/100 WBC (Bld) 29.2 % Normal 20.0-40.0 [facility] Comment on above: Performed By: #### P T/AP, TROPN, BMP3, HEMDF #### [address] MCH (RBC) [Entitic mass] 27.5 pg Normal 26.0-34.0 [facility] Comment on above: Performed By: #### P T/AP, TROPN, BMP3, HEMDF #### [place] [address] [place], [place] MCHC 32.3 % Normal 32.0-36.0 [facility] Comment on above: Performed By: #### P T/AP, TROPN, BMP3, HEMDF #### [address] MCV (RBC) [Entitic vol] 85.0 fL Normal 80.0-98.0 [facility] Comment on above: Performed By: #### P T/AP, TROPN, BMP3, HEMDF #### [place] [address] [place], [place] Monocytes (Bld) [#/Vol] 0.5 10*3/uL Normal 0.0-0.8 [facility] Comment on above: Performed By: #### P T/AP, TROPN, BMP3, HEMDF #### [place] [address] [place], [place] Monocytes/100 WBC (Bld) 5.6 % Normal 2.0-10.0 [facility] Comment on above: Performed By: #### P T/AP, TROPN, BMP3, HEMDF #### [facility] [address] [place], [place] Platelet mean volume (Bld) [Entitic vol] 8.6 fL Normal 7.4-12.4 [facility] Comment on above: Result Comment: MPV is a calculated measurement using platelet volume ratio. Performed By: #### P T/AP, TROPN, BMP3, HEMDF #### [facility] [address] [place], [place] Platelets (Bld) [#/Vol] 348 10*3/uL Normal 140-440 [facility] Comment on above: Performed By: #### P T/AP, TROPN, BMP3, HEMDF #### [place] [address] [place], [place] RBC (Bld) [#/Vol] 4.12 10*6/uL Low 4.40-5.90 [facility] Comment on above: Performed By: #### P T/AP, TROPN, BMP3, HEMDF #### [place] [address] [place], [place] WBC (Bld) [#/Vol] 9.7 10*3/uL Normal 3.6-10.7 [facility] Comment on above: Performed By: #### P T/AP, TROPN, BMP3, HEMDF #### [facility] [address], [place] Laboratory - Coagulationon 0 10-31-2021 INR Coag (Bld) [Relative time] 2.0 {INR} [facility] Work Phone: Comment on above: Critical Value > 4.0 No Panel Informationon 10-31 Radiology Study observation (narrative) [facility] Work Phone: PROTIME/INR & PTTon 11-01-19 aPTT Coag (Bld) [Time] 39.2 s High 20.0 - 30.5 s [facility] Comment on above: NOTE: The therapeuti c time for Heparin anticoagulation, based on Xa activity inhibition, is an APTT of 46-80 seconds. INR Coag (Bld) [Relative time] 1.9 {INR} High [facility] Comment on above: Recommended Anticoag ulant [...] Interpretation and review of laboratory results Abnormal [facility] PT Coag (PPP) [Time] 19.8 s High 9.0 - 12.0 s [facility] Comment on above: . Test Performed by [facility], [address] [place] [id number] [place] [address] - [facility] Protime AND APTTon 2 aPTT Coag (Bld) [Time] 39.2 s High 20.0-30.5 [facility] Comment on above: Result Comment: NOTE : The therapeutic time for Heparin anticoagulation, based on Xa activity inhibition, is an APTT of 46-80 seconds. Performed By: #### P T/AP, TROPN, BMP3, HEMDF #### [address] [address] INR 1.9 High 0.9-1.1 [facility] Comment on above: Result Comment: Harry [...] P T/AP, TROPN, BMP3, HEMDF #### [facility] [address] [place] [address] PT Coag (PPP) [Time] 19.8 s High 9.0-12.0 [facility] Comment on above: Result Comment: . Performed By: #### P T/AP, TROPN, BMP3, HEMDF #### [address] [address] Troponin Ion 10-31-2021 Troponin I.cardiac [Mass/Vol] ng/mL Normal 0.000-0.034 [facility] Comment on above: Result Comment: . Performed By: #### P T/AP, TROPN, BMP3, HEMDF #### [place] [address] [place] [address] Troponin x1on 10-31-2021 Troponin I.cardiac [Mass/Vol] ng/mL 0.000 - 0.034 ng/mL [facility] Comment on above: . Test Performed by [facility], [address] [place] [address] [facility] LAB [facility] Whole blood prothrombin time on 10-31-2021 PT Coag (Bld) [Time] 23.7 s 11.7-14.9 [facility] Work Phone: XR ABDOMEN (KUB) (SINGLE AP VIEW)on 10-31-2021 Patient Name: ANDREW SIFUENTES Diagnostic Radiology ACCESSION EXAM DATE/TIME PROCEDURE ORDERING PROVIDER [id number] 10/31/2021 20:36 EDT CR Abdomen AP [id number] -MYRON DURAN CPT code 66292 Reason For Exam (CR Abdomen AP) vp [...] WENDELL Transcribed Date and Time: 10/31/2021 8:49 [facility] Huang Reynoso MD - 10/31/2021 Patient Name: ANDREW SIFUENTES Diagnostic Radiology ACCESSION EXAM DATE/TIME PROCEDURE ORDERING PROVIDER [id number] 10/31/2021 20:36 EDT CR Abdomen AP [id number] -MYRON DURAN CPT code 10326 Reason For Exam (CR Abdomen AP) vp [...] Radiology ACCESSION EXAM DATE/TIME PROCEDURE ORDERING PROVIDER [id number] 10/31/2021 20:36 EDT CR Chest Portable [id number] -MYRON DURAN CPT code 70455 Reason For Exam (CR Chest Portable) AMS [...] bowel gas pattern. Report Dictated on Workstation: [id number] --- Final --- Dictated: 10/31/2021 8:49 pm Dictating Physician: MD REYNOOS WENDELL Signed Date and Time: 10/31/2021 8:52 pm Signed by: MD REYNOSO WENDELL Transcribed Date and Time: 10/31/2021 8:49 [facility] Huang Reynoso MD - 10/31/2021 Patient Name: ANDREW SIFUENTES Diagnostic Radiology ACCESSION EXAM DATE/TIME PROCEDURE ORDERING PROVIDER [id number] 10/31/2021 20:36 EDT CR Chest Portable [id number] MYRON GALINDO CPT code 49489 Reason For Exam (CR Chest Portable) AMS [...] WENDELL Transcribed Date and Time: 10/31/2021 8:49 [facility] Work Phone: XR CHEST PORTABLEOrdered By: Huang Reynoso on 10-31-2021 [facility] Work Phone: Lupus Anticoagulanton 2021 DRVVT Confirmation Test Not Applicable Negative ratio [facility] Work Phone: dRVVT Screen 38 [facility] Work Phone: Hex Phosph Neut Test Not Applicable Negative NA [facility] Work Phone: Interpretation and review of laboratory results Abnormal [facility] Work Phone: LUPUS INTERPRETATION See Note [facility] Work Phone: Comment on above: Lupus anticoagulant [...] has not already been performed. Performed by [facility], [address], [facility] [place] [address] [email or web address].[employer], Quiana Castro MD - Lab. Director Platelet Neutralization Not Applicable Negative NA [facility] Work Phone: PTT-D Heparin Neutralized 48 [facility] Work Phone: [phone] PTT-LA 55 High [facility] Work Phone: Reptilase Tm 17.6 <=21.9 sec [facility] Work Phone: Thrombin Time 25.3 High [facility] Work Phone: [phone] [facility] Work Phone: Lupus Anticoagulant Reflexiv e Panelon 10-29-2021 aPTT Coag (Bld) [Time] 55 s High 32-48 [facility] Comment on above: Performed By: #### C OVAG #### [facility] [address] [place] [address] aPTT Coag (Bld) [Time] 48 s Normal 32-48 [facility] Comment on above: Performed By: #### C OVAG #### [facility] [address] [place] [address] DRVVT 1:1 Mix Not Applicable Normal 33-44 [facility] Work Phone: Comment on above: Performed By: #### C OVAG #### [facility] [address] [place] [address] dRVVT Confirmation Not Applicable Normal Negative [facility] Comment on above: Performed By: #### C OVAG #### [facility] [address] [place] [address] dRVVT Screen 38 sec Normal 33-44 [facility] Comment on above: Performed By: #### C OVAG #### [facility] [address] [place] [address] Hexagonal Phospholipid Neutral Reflex Not Applicable Normal Negative [facility] Comment on above: Performed By: #### C OVAG #### [facility] [address] [place] [address] Lupus Anticoagulant Interpretation See Note Normal [facility] Comment on above: Result Comment: Lupu [...] has not already been performed. Performed by [facility], [address] [place] [id number] [email or web address].[employer], Quiana Castro MD - Lab. Director Performed By: #### C OVAG #### [facility] [address] [place] [address] Platelet Neutralization (PTT-D, Confirm) Not Applicable Normal Negative [facility] Comment on above: Performed By: #### C OVAG #### [facility] [address] [place] [address] PT Coag (PPP) [Time] 14.7 s Normal 12.0-15.5 [facility] Work Phone: Comment on above: Performed By: #### C OVAG #### [facility] [address] [place] [address] PTT-D 1:1 Mix Not Applicable Normal 32-48 [facility] Work Phone: Comment on above: Performed By: #### C OVAG #### [facility] [address] [place] [address] Reptilase Time 17.6 sec Normal <=21.9 [facility] Comment on above: Performed By: #### C OVAG #### [facility] [address] [place] [address] Thrombin Time 25.3 sec High 14.7-19.5 [facility] Comment on above: Performed By: #### C OVAG #### [facility] [address] [place] [address] POCT COVID-19, Antigenon 06- 25-2022 SARS-CoV-2 Nucleocapsid Antigen Negative Negative NA [facility] Comment on above: A negative result does not rule out the possibility of SARS-CoV-2 infection. NAAT-based methods should be considered for symptomatic patients presenting greater than seven days after onset of symptoms. Method: Lateral flow immunoassay. Fact sheets for healthcare providers and patients can be found at the following sites: https://www.fda.gov/media/432855/download https://www.fda.gov/media/721878/download Test Performed by [facility], [address] [place], [place] [id number] [place] [address] LAB [facility] Prothrombin Timeon INR 2.7 High 0.9-1.1 [facility] Comment on above: Result Comment: Harry [...] Performed By: #### P T #### [facility] [address] [place] [address] PT Coag (PPP) [Time] 27.4 s High 9.0-12.0 [facility] Comment on above: Result Comment: . Performed By: #### P T #### [facility] [address] [place] [address] Protime-INRon 10-29-2021 INR Coag (Bld) [Relative time] 2.7 {INR} High [facility] Work Phone: Comment on above: Recommended [...] Interpretation and review of laboratory results Abnormal [facility] Work Phone: 1 PT Coag (PPP) [Time] 27.4 s High 9.0 - 12.0 s [facility] Work Phone: Comment on above: . Test Performed by [facility], [address], [place], [place] [address] [facility] LAB [facility] Work Phone: 1 SARS-CoV-2 Antigenon 022 SARS-CoV-2 Antigen Negative Normal Negative [facility] Comment on above: Result Comment: A negative result does not rule out the possibility of SARS-CoV-2 infection. NAAT-based methods should be considered for symptomatic patients presenting greater than seven days after onset of symptoms. Method: Lateral flow immunoassay. Fact sheets for healthcare providers and patients can be found at the following sites: https://www.[employer].gov/media/358787/download https://www.[employer].gov/media/253281/download Performed By: #### C OVAG #### [facility] [address] [place] [address] [facility] 10-28-2021 Hematocrit (Bld) [Volume fraction] 33.4 % Low 40.0 - 52.0 % [facility] Work Phone: 1 Hemoglobin (Bld) [Mass/Vol] 11.0 g/dL Low 13.0 - 18.0 g/dL [facility] Work Phone: Interpretation and review of laboratory results Abnormal [facility] Work Phone: MCH (RBC) [Entitic mass] 27.8 pg 26.0 - 34.0 pg [facility] Work Phone: MCHC (RBC) [Mass/Vol] 32.8 % 32.0 - 36.0 % [facility] Work Phone: MCV (RBC) [Entitic vol] 84.8 fL 80.0 - 98.0 fL [facility] Work Phone: Platelet distribution width (Bld) [Ratio] 17.1 % High 11.5 - 14.5 % [employer] Work Phone: Platelet mean volume (Bld) [Entitic vol] 8.3 fL 7.4 - 12.4 fL [employer] Work Phone: Comment on above: MPV is a calculated measurement using platelet volume ratio. Platelets (Bld) [#/Vol] 344 10*3/uL 140 - 440 10*3/uL [facility] Work Phone: RBC (Bld) [#/Vol] 3.94 10*6/uL Low 4.40 - 5.9 0 10*6/uL [employer] Work Phone: [phone] WBC (Bld) [#/Vol] 10.0 10*3/uL 3.6 - 10.7 10*3/uL [employer] Work Phone: Test Performed by [facility], [address] [place], [place] [id number] [place] [address] LAB [facility] Work Phone: Comp Metabolic Panelon 10-28 ALP [Catalytic activity/Vol] 103 U/L Normal 38-126 [facility] Comment on above: Performed By: #### C A19O, LUPUS #### The performing lab is in the report. #### NSEO #### [facility] #### HEMDF, LDH3, BMP3, MG3, PT, CEA2 #### [facility] [address] [place] [address] #### B2GPM, B2GPA, B2GPG #### [facility] [address] [place] [address] ALT [Catalytic activity/Vol] 26 U/L Normal 0-49 [facility] Comment on above: Result Comment: The ALT test is performed by an updated assay method. Please note that the reference intervals have been changed and are now sex specific. Performed By: #### C A19O, LUPUS #### The performing lab is in the report. #### NSEO #### [facility] #### HEMDF, LDH3, BMP3, MG3, PT, CEA2 #### [facility] [address] [place] [address] #### B2GPM, B2GPA, B2GPG #### [address] AST [Catalytic activity/Vol] 24 U/L Normal 15-46 [facility] Comment on above: Performed By: #### C A19O, LUPUS #### The performing lab is in the report. #### NSEO #### [facility] #### HEMDF, LDH3, BMP3, MG3, PT, CEA2 #### [place] [address] [place] #### B2GPM, B2GPA, B2GPG #### [address] Calcium [Mass/Vol] 9.1 mg/dL Normal 8.4-10.4 [facility] Comment on above: Performed By: #### C A19O, LUPUS #### The performing lab is in the report. #### NSEO #### [facility] #### HEMDF, LDH3, BMP3, MG3, PT, CEA2 #### [place] [address] [place] [address] #### B2GPM, B2GPA, B2GPG #### [address] Glucose [Mass/Vol] 117 mg/dL High 70-100 [facility] Comment on above: Performed By: #### C A19O, LUPUS #### The performing lab is in the report. #### NSEO #### [facility] #### HEMDF, LDH3, BMP3, MG3, PT, CEA2 #### [place] [address] [place] [address] #### B2GPM, B2GPA, B2GPG #### [address] Urea nitrogen [Mass/Vol] 16 mg/dL Normal 7-17 [facility] Comment on above: Performed By: #### C A19O, LUPUS #### The performing lab is in the report. #### NSEO #### [facility] #### HEMDF, LDH3, BMP3, MG3, PT, CEA2 #### [place] [address] [place] [address] #### B2GPM, B2GPA, B2GPG #### [address] Anion gap [Moles/Vol] 5 mmol/L Normal 3-13 [facility] Comment on above: Performed By: #### C A19O, LUPUS #### The performing lab is in the report. #### NSEO #### [facility] #### HEMDF, LDH3, BMP3, MG3, PT, CEA2 #### [place] [address] [place] [address] #### B2GPM, B2GPA, B2GPG #### [address] Bilirubin [Mass/Vol] 0.4 mg/dL Normal 0.2-1.3 [facility] Comment on above: Performed By: #### C A19O, LUPUS #### The performing lab is in the report. #### NSEO #### [facility] #### HEMDF, LDH3, BMP3, MG3, PT, CEA2 #### [place] [address] [place] [address] #### B2GPM, B2GPA, B2GPG #### [address] CO2 [Moles/Vol] 29 mmol/L Normal 22-30 [facility] Comment on above: Performed By: #### C A19O, LUPUS #### The performing lab is in the report. #### NSEO #### [facility] #### HEMDF, LDH3, BMP3, MG3, PT, CEA2 #### [place] [address] [place] [address] #### B2GPM, B2GPA, B2GPG #### [address] Creatinine [Mass/Vol] 0.71 mg/dL Normal 0.52-1.25 [facility] Comment on above: Performed By: #### C A19O, LUPUS #### The performing lab is in the report. #### NSEO #### [facility] #### HEMDF, LDH3, BMP3, MG3, PT, CEA2 #### [facility] [address] [place], [place] #### B2GPM, B2GPA, B2GPG #### [address] eGFR OTHER > 90.0 Normal >60 [facility] Comment on above: Result Comment: KDIG [...] LDH3, BMP3, MG3, PT, CEA2 #### [facility] [address] [place] [address] #### B2GPM, B2GPA, B2GPG #### [address] GFR/1.73 sq M.predicted among blacks MDRD (S/P/Bld) [Vol rate/Area] mL/min/{1.73_m2} Normal >60 [facility] Comment on above: Performed By: #### C A19O, LUPUS #### The performing lab is in the report. #### NSEO #### [facility] #### HEMDF, LDH3, BMP3, MG3, PT, CEA2 #### [place] [address] [place] [address] #### B2GPM, B2GPA, B2GPG #### [address] Protein [Mass/Vol] 7.1 g/dL Normal 6.3-8.2 [facility] Comment on above: Performed By: #### C A19O, LUPUS #### The performing lab is in the report. #### NSEO #### [facility] #### HEMDF, LDH3, BMP3, MG3, PT, CEA2 #### [facility] [address] [place] [address] #### B2GPM, B2GPA, B2GPG #### [address] Potassium [Moles/Vol] 3.5 mmol/L Normal 3.5-5.1 [facility] Comment on above: Performed By: #### C A19O, LUPUS #### The performing lab is in the report. #### NSEO #### [facility] #### HEMDF, LDH3, BMP3, MG3, PT, CEA2 #### [facility] [address] [place] [address] #### B2GPM, B2GPA, B2GPG #### [address] Sodium [Moles/Vol] 138 mmol/L Normal 135-145 [facility] Comment on above: Performed By: #### C A19O, LUPUS #### The performing lab is in the report. #### NSEO #### [facility] #### HEMDF, LDH3, BMP3, MG3, PT, CEA2 #### [facility] [address] [place] [address] #### B2GPM, B2GPA, B2GPG #### [address] [address] Albumin [Mass/Vol] 3.7 g/dL Normal 3.5-5.0 [facility] Comment on above: Performed By: #### C A19O, LUPUS #### The performing lab is in the report. #### NSEO #### [facility] #### HEMDF, LDH3, BMP3, MG3, PT, CEA2 #### [place] [address] [place] [address] #### B2GPM, B2GPA, B2GPG #### [address] Chloride [Moles/Vol] 104 mmol/L Normal 98-107 [facility] Comment on above: Performed By: #### C A19O, LUPUS #### The performing lab is in the report. #### NSEO #### [facility] #### HEMDF, LDH3, BMP3, MG3, PT, CEA2 #### [place] [address] [place] [address] #### B2GPM, B2GPA, B2GPG #### [address] [address] Comprehensive Metabolic Pane kiel 10-28-2021 Albumin [Mass/Vol] 3.7 g/dL 3.5 - 5.0 g/dL [facility] Work Phone: ALP (Bld) [Catalytic activity/Vol] 103 U/L 38 - 126 U/L [facility] Work Phone: ALT [Catalytic activity/Vol] 26 U/L 0 - 49 U/L [facility] Work Phone: Comment on above: The ALT test is perf ormed by an updated assay method. Please note that the reference intervals have been changed and are now sex specific. Anion gap [Moles/Vol] 5 mmol/L 3 - 13 mmol/L [facility] Work Phone: AST [Catalytic activity/Vol] 24 U/L 15 - 46 U/L [facility] Work Phone: Bilirubin [Mass/Vol] 0.4 mg/dL 0.2 - 1 .3 mg/dL [facility] Work Phone: Calcium [Mass/Vol] 9.1 mg/dL 8.4 - 10. 4 mg/dL [facility] Work Phone: Chloride [Moles/Vol] 104 mmol/L 98 - 10 7 mmol/L [facility] Work Phone: CO2 [Moles/Vol] 29 mmol/L 22 - 30 mmol/L [facility] Work Phone: Creatinine [Mass/Vol] 0.71 mg/dL 0.52 - 1.25 mg/dL [facility] Work Phone: EGFR IF NonAfrican [place]dean >90.0 >60 mL/min [facility] Work Phone: Comment on above: KDIGO [...] fraction] 7.1 g/dL 6.3 - 8.2 g/dL [facility] Work Phone: GFR/1.73 sq M.predicted among blacks MDRD (S/P/Bld) [Vol rate/Area] mL/min/{1.73_m2} >60 mL/min [facility] Work Phone: Glucose [Mass/Vol] 117 mg/dL High 70 - 100 mg/dL [facility] Work Phone: Interpretation and review of laboratory results Abnormal [facility] Work Phone: [phone] Potassium [Moles/Vol] 3.5 mmol/L 3.5 - 5.1 mmol/L [facility] Work Phone: [phone] Sodium [Moles/Vol] 138 mmol/L 135 - 145 mmol/L [facility] Work Phone: Urea nitrogen (BldV) [Mass/Vol] 16 mg/dL 7 - 17 mg/dL [facility] Work Phone: Test Performed by [facility], [address] [place], [place] [address] [facility] LAB [facility] Work Phone: Hemogramon 10-28-2021 Erythrocyte distribution width (RBC) [Ratio] 17.1 % High 11.5-14.5 [facility] Comment on above: Performed By: #### C A19O, LUPUS #### The performing lab is in the report. #### NSEO #### [facility] #### HEMDF, LDH3, BMP3, MG3, PT, CEA2 #### [address] [place] [address] #### B2GPM, B2GPA, B2GPG #### [address] [address] Hematocrit (Bld) [Volume fraction] 33.4 % Low 40.0-52.0 [facility] Comment on above: Performed By: #### C A19O, LUPUS #### The performing lab is in the report. #### NSEO #### [facility] #### HEMDF, LDH3, BMP3, MG3, PT, CEA2 #### [address] [place] [address] #### B2GPM, B2GPA, B2GPG #### [address] Hemoglobin (Bld) [Mass/Vol] 11.0 g/dL Low 13.0-18.0 [facility] Comment on above: Performed By: #### C A19O, LUPUS #### The performing lab is in the report. #### NSEO #### [facility] #### HEMDF, LDH3, BMP3, MG3, PT, CEA2 #### [facility] [address] [place], [place] #### B2GPM, B2GPA, B2GPG #### [address] MCH (RBC) [Entitic mass] 27.8 pg Normal 26.0-34.0 [facility] Comment on above: Performed By: #### C A19O, LUPUS #### The performing lab is in the report. #### NSEO #### [facility] #### HEMDF, LDH3, BMP3, MG3, PT, CEA2 #### [address] [place] #### B2GPM, B2GPA, B2GPG #### [address] MCHC 32.8 % Normal 32.0-36.0 [facility] Comment on above: Performed By: #### C A19O, LUPUS #### The performing lab is in the report. #### NSEO #### [facility] #### HEMDF, LDH3, BMP3, MG3, PT, CEA2 #### [address] [place] #### B2GPM, B2GPA, B2GPG #### [address] MCV (RBC) [Entitic vol] 84.8 fL Normal 80.0-98.0 [facility] Comment on above: Performed By: #### C A19O, LUPUS #### The performing lab is in the report. #### NSEO #### [facility] #### HEMDF, LDH3, BMP3, MG3, PT, CEA2 #### [facility] [address] [place] [address] #### B2GPM, B2GPA, B2GPG #### [address] Platelet mean volume (Bld) [Entitic vol] 8.3 fL Normal 7.4-12.4 [facility] Comment on above: Result Comment: MPV is a calculated measurement using platelet volume ratio. Performed By: #### C A19O, LUPUS #### The performing lab is in the report. #### NSEO #### [facility] #### HEMDF, LDH3, BMP3, MG3, PT, CEA2 #### [address] [place] #### B2GPM, B2GPA, B2GPG #### [address] Platelets (Bld) [#/Vol] 344 10*3/uL Normal 140-440 [facility] Comment on above: Performed By: #### C A19O, LUPUS #### The performing lab is in the report. #### NSEO #### [facility] #### HEMDF, LDH3, BMP3, MG3, PT, CEA2 #### [address] [place] #### B2GPM, B2GPA, B2GPG #### [address] RBC (Bld) [#/Vol] 3.94 10*6/uL Low 4.40-5.90 [facility] Comment on above: Performed By: #### C A19O, LUPUS #### The performing lab is in the report. #### NSEO #### [facility] #### HEMDF, LDH3, BMP3, MG3, PT, CEA2 #### [facility] [address] [place] #### B2GPM, B2GPA, B2GPG #### [facility] [address] [place] [address] WBC (Bld) [#/Vol] 10.0 10*3/uL Normal 3.6-10.7 [facility] Comment on above: Performed By: #### C A19O, LUPUS #### The performing lab is in the report. #### NSEO #### [facility] #### HEMDF, LDH3, BMP3, MG3, PT, CEA2 #### [facility] [address] [place] [address] #### B2GPM, B2GPA, B2GPG #### [facility] [address] [place] [address] Neuron Specific Enolaseon Neuron Specific Enolase 20.8 Normal [facility] Comment on above: Result Comment: Neur on Specific Enolase, Serum 20.8 ng/mL H (Ref Interval: <=12.7) NSE and Hgb are elevated in the specimen. The elevated NSE may be a result of hemolysis as NSE is expressed in red blood cells. Interpret results with caution. INTERPRETIVE INFORMATION: Neuron Specific Enolase in Serum This assay is performed using the [employer] NSE Kryptor Immunoassay. Results obtained with different assay methods or kits cannot be used interchangeably. Results cannot be interpreted as absolute evidence of the presence or absence of malignant disease. This test was developed and its performance characteristics determined by [employer]. It has not been cleared or approved by the [place] Food and Drug Administration. This test was performed in a CLIA certified laboratory and is intended for clinical purposes. Performed By: #### C OVAG #### [facility] [address] [place] [address] Neuron specific enolase (NSE )on 10-28-2021 Neuron Specific Enolase 20.8 [facility] Work Phone: Comment on above: Neuron Specific Enol ase, Serum 20.8 ng/mL H (Ref Interval: <=12.7) NSE and Hgb are elevated in the specimen. The elevated NSE may be a result of hemolysis as NSE is expressed in red blood cells. Interpret results with caution. INTERPRETIVE INFORMATION: Neuron Specific Enolase in Serum This assay is performed using the mywavesS NSE Kryptor Immunoassay. Results obtained with different assay methods or kits cannot be used interchangeably. Results cannot be interpreted as absolute evidence of the presence or absence of malignant disease. This test was developed and its performance characteristics determined by [employer]. It has not been cleared or approved by the [place] Food and Drug Administration. This test was performed in a CLIA certified laboratory and is intended for clinical purposes. 1 [facility] Work Phone: Prothrombin Timeon 2 INR 3.1 High 0.9-1.1 [facility] Comment on above: Result Comment: Harry [...] LDH3, BMP3, MG3, PT, CEA2 #### [facility] [address] [place] [address] #### B2GPM, B2GPA, B2GPG #### [address] [address] PT Coag (PPP) [Time] 30.8 s High 9.0-12.0 [facility] Comment on above: Result Comment: . Performed By: #### C A19O, LUPUS #### The performing lab is in the report. #### NSEO #### [facility] #### HEMDF, LDH3, BMP3, MG3, PT, CEA2 #### [facility] [address] [place] [address] #### B2GPM, B2GPA, B2GPG #### [address] [address] Protime-INRon 10-28-2021 INR Coag (Bld) [Relative time] 3.1 {INR} High [facility] Work Phone: Comment on above: Recommended [...] Interpretation and review of laboratory results Abnormal [facility] Work Phone: PT Coag (PPP) [Time] 30.8 s High 9.0 - 12.0 s [facility] Work Phone: Comment on above: . Test Performed by [facility], [address] [place], [place] [id number] [place] [address] LAB [facility] Work Phone: MRI BRAIN WO CONTRASTon 10-06 Patient Name: ANDREW SIFUENTES Magnetic Resonance Imaging ACCESSION EXAM DATE/TIME PROCEDURE ORDERING PROVIDER [id number] 10/27/2021 13:14 EDT MRI Brain w/o Contrast UNASSIGNED, UNASSIGNED CPT code 28901 Reason For Exam (MRI Brain w/o Contrast) stroke Patient has RN INVASIVE shunt in place, please follow Radiology protocol [...] OSAMA Transcribed Date and Time: 10/27/2021 2:39 [facility] Venus Loyd MD - 10/27/2021 Patient Name: ANDREW SIFUENTES Magnetic Resonance Imaging ACCESSION EXAM DATE/TIME PROCEDURE ORDERING PROVIDER [id number] 10/27/2021 13:14 EDT MRI Brain w/o Contrast UNASSIGNED, UNASSIGNED CPT code 93893 Reason For Exam (MRI Brain w/o Contrast) stroke Patient has RN INVASIVE shunt in place, please follow Radiology protocol [...] Brain w/o Contrast Patient Name: ANDREW VELAZQUEZ [facility]#: [id number] Magnetic Resonance Imaging ACCESSION EXAM DATE/TIME PROCEDURE ORDERING PROVIDER [id number] 10/27/2021 13:14 EDT MRI Brain w/o Contrast UNASSIGNED, UNASSIGNED CPT code 60279 Reason For Exam (MRI Brain w/o Contrast) stroke Patient has RN INVASIVE shunt in place, please follow Radiology protocol [...] Date and Time: 10/27/2021 2:39 Normal [facility] Prothrombin Timeon 2 INR 2.1 High 0.9-1.1 [facility] Comment on above: Result Comment: Harry [...] Performed By: #### P T #### [facility] [address] [place] [address] PT Coag (PPP) [Time] 21.9 s High 9.0-12.0 [facility] Work Phone: Comment on above: . Result Comment: . Performed By: #### P T #### [facility] [address] [place] [address] Protime-INRon 10-27-2021 INR Coag (Bld) [Relative time] 2.1 {INR} High [facility] Work Phone: Comment on above: Recommended [...] Interpretation and review of laboratory results Abnormal [facility] Work Phone: Test Performed by [facility], [address] [place], [place], [place] [address] [facility] Work Phone: CT HEAD WO CONTRASTon 2021 Patient Name: ANDREW SIFUENTES Computed Tomography ACCESSION EXAM DATE/TIME PROCEDURE ORDERING PROVIDER [id number] 10/26/2021 11:[address] Head or Brain w/o JUNIE PINEDA, SARINA Contrast CPT code 82373 Reason For Exam (CT Head or Brain w/o Contrast) hydrocephalus. thank you Report CLINICAL INFORMATION: Hydrocephalus. Shunt. 3 mm axial cuts through the head are obtained without IV contrast. The examination is compared to a previous study dated 06/29/2014. FINDINGS: Old RN INVASIVE shunt tubing is noted bilaterally. The new [...] are clear. IMPRESSION: 1. Old and new RN INVASIVE shunt tubing. 2. No hydrocephalus. 3. Atrophy and evidence of small-vessel ischemic disease. 4. No CT evidence of an acute intracranial process. Report Dictated on --- Final --- Dictating Physician: MD SOLANO JEFFREY Signed Date and Time: 10/26/2021 11:42 am Signed by: MD SOLANO JEFFREY Transcribed Date and Time: 10/26/2021 11:43 [facility] Albert Solano MD - 10/26/2021 [id number] Computed Tomography ACCESSION EXAM DATE/TIME PROCEDURE ORDERING PROVIDER [id number] 10/26/2021 11:[address] Head or Brain w/o JUNIE PINEDA, SARINA Contrast CPT code 13075 Reason For Exam (CT Head or Brain w/o Contrast) hydrocephalus. thank you Report CLINICAL INFORMATION: Hydrocephalus. Shunt. 3 mm axial cuts through the head are obtained without IV contrast. The examination is compared to a previous study dated 06/29/2014. FINDINGS: Old RN INVASIVE shunt tubing is noted bilaterally. The new [...] are clear. IMPRESSION: 1. Old and new RN INVASIVE shunt tubing. 2. No hydrocephalus. 3. Atrophy [...] Tomography ACCESSION EXAM DATE/TIME PROCEDURE ORDERING PROVIDER [id number] 10/26/2021 11:[address] Head or Brain w/o JUNIE PINEDA, SARINA Contrast CPT code 24300 Reason For Exam (CT Head or Brain w/o Contrast) hydrocephalus. thank you Report CLINICAL INFORMATION: Hydrocephalus. Shunt. 3 mm axial cuts through the head are obtained without IV contrast. The examination is compared to a previous study dated 06/29/2014. FINDINGS: Old RN INVASIVE shunt tubing is noted bilaterally. The new [...] are clear. IMPRESSION: 1. Old and new RN INVASIVE shunt tubing. 2. No hydrocephalus. 3. Atrophy and evidence of small-vessel ischemic disease. 4. No CT evidence of an acute intracranial process. Report Dictated on Final Dictating Physician: MD SOLANO JEFFREY Signed Date and Time: 10/26/2021 11:42 am Signed by: MD SOLANO JEFFREY Transcribed Date and Time: 10/26/2021 11:43 Normal [facility] EEG awake and asleepon 10-26 Bony Tompkins MD 10/26/2021 4:[address] 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 Barreto REASON FOR EXAM: seizures HISTORY: Andrew Sifuentes is a 71 y.o. male with history of obstructive hydrocephalus s/p RN INVASIVE shunt in 1987, needing multiple revisions and [...] normal limits and both old and new RN INVASIVE shunt tubing noted. At present patient is awake, follows commands, was able to tell his name, and that he was in hospital but not oriented to time. Per documentation patient had NCSE in May 2021, was on Vimpat, but it was discontinued as there was no evidence of recurrent seizures in July 2021 by Neurology at [facility], per daughter patient was on [...] No normal vari (more content not included)... [facility] Work Phone: [facility] Work Phone: No Panel Informationon 10-26 Radiology Study observation (narrative) [facility] Work Phone: Prothrombin Timeon 2 INR 1.9 High 0.9-1.1 [facility] Comment on above: Result Comment: Harry mmended [...] Infarction Performed By: #### C OVAG #### [facility] [address] [place] [address] PT Coag (PPP) [Time] 19.7 s High 9.0-12.0 [facility] Comment on above: Result Comment: . Performed By: #### C OVAG #### [facility] [address] [place] [address] Protime-INRon 10-26-2021 INR Coag (Bld) [Relative time] 1.9 {INR} High [facility] Work Phone: Comment on above: Recommended [...] Interpretation and review of laboratory results Abnormal [facility] Work Phone: PT Coag (PPP) [Time] 19.7 s High 9.0 - 12.0 s [facility] Work Phone: Comment on above: . Test Performed by [facility], [address] [place], [place] [id number] [place] [address] LAB [facility] Work Phone: CA 19-9on 10-25-2021 CA 19-9 17 U/mL Normal <=35 [facility] Work Phone: Comment on above: INTERPRETIVE [...] or absence of malignant disease. Performed By: [place] [address] Box Gluer: Quiana Castro MD Result Comment: INTE RPRETIVE [...] or absence of malignant disease. Performed By: [facility] [address] [place] [id number] Box Gluer: Quiana Castro MD Performed By: #### C OVAG #### [facility] [address] [place] [address] Cancer Antigen 19-9on 2021 [facility] Work Phone: Prothrombin Timeon 2 INR 1.5 High 0.9-1.1 [facility] Comment on above: Result Comment: Harry [...] Performed By: #### P T #### [facility] [address] [place] [address] PT Coag (PPP) [Time] 15.6 s High 9.0-12.0 [facility] Comment on above: Result Comment: . Performed By: #### P T #### [facility] [address] [place] [address] Protime-INRon 10-25-2021 INR Coag (Bld) [Relative time] 1.5 {INR} High [facility] Work Phone: Comment on above: Recommended [...] Interpretation and review of laboratory results Abnormal [facility] Work Phone: PT Coag (PPP) [Time] 15.6 s High 9.0 - 12.0 s [facility] Work Phone: Comment on above: . Test Performed by [facility], [address], [place], [place] [address] [facility] Work Phone: B-2 Glycoprotein (IGA)on Beta-2 Glyco 1 IgA <2.0 U/mL [facility] Work Phone: Comment on above: [...] 10-24-2021 Beta-2 Glyco 1 IgG <1.4 U/mL [facility] Work Phone: Comment on above: Interpretive Informa tion: Results equal to or greater than 20 U/mL = POSITIVE Results less than 20 U/mL = NEGATIVE Basic Metabolic Panelon 10-06 Anion gap [Moles/Vol] 8 mmol/L Normal 3-13 [facility] Comment on above: Performed By: #### C A19O, LUPUS #### The performing lab is in the report. #### NSEO #### [facility] #### HEMDF, LDH3, BMP3, MG3, PT, CEA2 #### [facility] [address] [place] [address] #### B2GPM, B2GPA, B2GPG #### [facility] [address] [place] [address] Calcium [Mass/Vol] 8.8 mg/dL Normal 8.4-10.4 [facility] Comment on above: Performed By: #### C A19O, LUPUS #### The performing lab is in the report. #### NSEO #### [facility] #### HEMDF, LDH3, BMP3, MG3, PT, CEA2 #### [facility] [address] [place] [address] #### B2GPM, B2GPA, B2GPG #### [address] CO2 [Moles/Vol] 25 mmol/L Normal 22-30 [facility] Comment on above: Performed By: #### C A19O, LUPUS #### The performing lab is in the report. #### NSEO #### [facility] #### HEMDF, LDH3, BMP3, MG3, PT, CEA2 #### [facility] [address] [place] [address] #### B2GPM, B2GPA, B2GPG #### [address] Creatinine [Mass/Vol] 0.74 mg/dL Normal 0.52-1.25 [facility] Comment on above: Performed By: #### C A19O, LUPUS #### The performing lab is in the report. #### NSEO #### [facility] #### HEMDF, LDH3, BMP3, MG3, PT, CEA2 #### [place] [address] [place] [address] #### B2GPM, B2GPA, B2GPG #### [address] eGFR OTHER > 90.0 Normal >60 [facility] Comment on above: Result Comment: KDIG [...] LDH3, BMP3, MG3, PT, CEA2 #### [facility] [address] [address] #### B2GPM, B2GPA, B2GPG #### [address] GFR/1.73 sq M.predicted among blacks MDRD (S/P/Bld) [Vol rate/Area] mL/min/{1.73_m2} Normal >60 [facility] Comment on above: Performed By: #### C Sena9O, LUPUS #### The performing lab is in the report. #### NSEO #### [facility] #### HEMDF, LDH3, BMP3, MG3, PT, CEA2 #### [facility] [address] [place] [address] #### B2GPM, B2GPA, B2GPG #### [address] Glucose [Mass/Vol] 116 mg/dL High 70-100 [facility] Comment on above: Performed By: #### C A19O, LUPUS #### The performing lab is in the report. #### NSEO #### [facility] #### HEMDF, LDH3, BMP3, MG3, PT, CEA2 #### [facility] [address] [place] [address] #### B2GPM, B2GPA, B2GPG #### [address] Urea nitrogen [Mass/Vol] 19 mg/dL High 7-17 [facility] Comment on above: Performed By: #### C A19O, LUPUS #### The performing lab is in the report. #### NSEO #### [facility] #### HEMDF, LDH3, BMP3, MG3, PT, CEA2 #### [facility] [address] [place] [address] #### B2GPM, B2GPA, B2GPG #### [address] Chloride [Moles/Vol] 107 mmol/L Normal 98-107 [facility] Comment on above: Performed By: #### C A19O, LUPUS #### The performing lab is in the report. #### NSEO #### [facility] #### HEMDF, LDH3, BMP3, MG3, PT, CEA2 #### [place] [address] [place] [address] #### B2GPM, B2GPA, B2GPG #### [address] Potassium [Moles/Vol] 3.9 mmol/L Normal 3.5-5.1 [facility] Comment on above: Performed By: #### C A19O, LUPUS #### The performing lab is in the report. #### NSEO #### [facility] #### HEMDF, LDH3, BMP3, MG3, PT, CEA2 #### [place] [address] [place] [address] #### B2GPM, B2GPA, B2GPG #### [address] Sodium [Moles/Vol] 140 mmol/L Normal 135-145 [facility] Comment on above: Performed By: #### C A19O, LUPUS #### The performing lab is in the report. #### NSEO #### [facility] #### HEMDF, LDH3, BMP3, MG3, PT, CEA2 #### [place] [address] [place] [address] #### B2GPM, B2GPA, B2GPG #### [address] [address] Anion gap [Moles/Vol] 8 mmol/L 3 - 13 mmol/L [facility] Calcium [Mass/Vol] 8.8 mg/dL 8.4 - 10. 4 mg/dL [facility] Chloride [Moles/Vol] 107 mmol/L 98 - 10 7 mmol/L [facility] CO2 [Moles/Vol] 25 mmol/L 22 - 30 mmol/L [facility] Creatinine [Mass/Vol] 0.74 mg/dL 0.52 - 1.25 mg/dL [facility] EGFR IF NonAfrican Cape Verdean >90.0 >60 mL/min [facility] Comment on above: [...] mg/dL [facility] Test Performed by [facility], [address], [place], [place] [address] [facility] Beta-2 Glycoprotein I IgAon 10-24-2021 Beta-2 Glycoprotein I IgA < 2.0 Normal [facility] Comment on above: Result Comment: Inte rpretive Information: Results equal to or greater than 20 U/mL = POSITIVE Results less than 20 U/mL = NEGATIVE Performed By: #### C OVAG #### [facility] [address] [place] [address] Beta-2 Glycoprotein I IgGon 10-24-2021 Beta-2 Glycoprotein I IgG < 1.4 Normal [facility] Comment on above: Result Comment: Inte rpretive Information: Results equal to or greater than 20 U/mL = POSITIVE Results less than 20 U/mL = NEGATIVE Performed By: #### C OVAG #### [facility] [address] [place] [address] Beta-2 Glycoprotein I IgMon 10-24-2021 Beta-2 Glycoprotein I IgM < 1.5 Normal [facility] Comment on above: Result Comment: Inte rpretive Information: Results equal to or greater than 20 U/mL = POSITIVE Results less than 20 U/mL = NEGATIVE Performed By: #### C OVAG #### [facility] [address] [place] [address] No Panel Informationon 10-24 [facility] Test Performed by [facility], [address] [place] [id number] [place] [address] LAB [facility] Work Phone: PROTEIN C FUNCTIONALon 10-24 Interpretation and review of laboratory results Abnormal [facility] Protein C-Functional 185 % High 83 [...] reference intervals for this test in the [employer] [facility] Test Directory ([facility]). Performed by [facility], [address] [place] [id number] www.[email or web address], Quiana Castro MD - Lab. Director Protein C, Functionalon 10-06 Protein C, Functional 185 % High 83-168 [facility] Comment on above: Result Comment: INTE [...] reference intervals for this test in the [employer] [facility] Test Directory ([facility]). Performed by [facility], [address] [facility],[place] [id number] www.[email or web address], Quiana Castro MD - Lab. Director Performed By: #### P T #### [employer] [address] [place] [address] Protein S, Functionalon --2021 Protein S, Functional 138 % Normal 66-143 [facility] Comment on above: INTERPRETIVE INFORMA TION: [...] reference intervals for this test in the [employer] [facility] Test Directory ([facility]). Performed by [facility], [address] [place] [address] www.[employer], Quiana Castro MD - Lab. Director Result [...] reference intervals for this test in the [employer] [facility] Test Directory ([facility]). Performed by [facility], [address] [facility],[place] [id number] [email or web address], Quiana Castro MD - Lab. Director Performed By: #### P T #### [facility] [address] [place] [address] Prothrombin Timeon INR 1.2 High 0.9-1.1 [facility] Comment on above: Result Comment: Harry [...] HEMDF, LDH3, BMP3, MG3, PT, CEA2 #### [address] [place] [address] #### B2GPM, B2GPA, B2GPG #### [address] [address] PT Coag (PPP) [Time] 12.6 s High 9.0-12.0 [facility] Comment on above: Result Comment: . Performed By: #### C A19O, LUPUS #### The performing lab is in the report. #### NSEO #### [facility] #### HEMDF, LDH3, BMP3, MG3, PT, CEA2 #### [address] [place] [address] #### B2GPM, B2GPA, B2GPG #### [address] [address] Protime-INRon 10-24-2021 INR Coag (Bld) [Relative time] 1.2 {INR} High [facility] Comment on above: Recommended Anticoag ulant [...] Interpretation and review of laboratory results Abnormal [facility] PT Coag (PPP) [Time] 12.6 s High 9.0 - 12.0 s [facility] Comment on above: . Test Performed by [facility], [address] [place], [place] [id number] [place] [address] LAB [facility] Basic Metabolic Panelon 06- Anion gap [Moles/Vol] 10 mmol/L Normal 3-13 [facility] Comment on above: Performed By: #### C A19O, LUPUS #### The performing lab is in the report. #### NSEO #### [facility] #### HEMDF, LDH3, BMP3, MG3, PT, CEA2 #### [facility] [address] [place] [address] #### B2GPM, B2GPA, B2GPG #### [address] [address] Calcium [Mass/Vol] 9.6 mg/dL Normal 8.4-10.4 [facility] Comment on above: Performed By: #### C A19O, LUPUS #### The performing lab is in the report. #### NSEO #### [facility] #### HEMDF, LDH3, BMP3, MG3, PT, CEA2 #### [facility] [address] [place] [address] #### B2GPM, B2GPA, B2GPG #### [address] [address] CO2 [Moles/Vol] 27 mmol/L Normal 22-30 [facility] Comment on above: Performed By: #### C A19O, LUPUS #### The performing lab is in the report. #### NSEO #### [facility] #### HEMDF, LDH3, BMP3, MG3, PT, CEA2 #### [facility] [address] [place] [address] #### B2GPM, B2GPA, B2GPG #### [address] Glucose [Mass/Vol] 109 mg/dL High 70-100 [facility] Comment on above: Performed By: #### C A19O, LUPUS #### The performing lab is in the report. #### NSEO #### [facility] #### HEMDF, LDH3, BMP3, MG3, PT, CEA2 #### [place] [address] [place] #### B2GPM, B2GPA, B2GPG #### [address] Urea nitrogen [Mass/Vol] 18 mg/dL High 7-17 [facility] Comment on above: Performed By: #### C A19O, LUPUS #### The performing lab is in the report. #### NSEO #### [facility] #### HEMDF, LDH3, BMP3, MG3, PT, CEA2 #### [place] [address] [place] [address] #### B2GPM, B2GPA, B2GPG #### [address] Creatinine [Mass/Vol] 0.82 mg/dL Normal 0.52-1.25 [facility] Comment on above: Performed By: #### C A19O, LUPUS #### The performing lab is in the report. #### NSEO #### [facility] #### HEMDF, LDH3, BMP3, MG3, PT, CEA2 #### [place] [address] [place] [address] #### B2GPM, B2GPA, B2GPG #### [address] GFR/1.73 sq M.predicted among blacks MDRD (S/P/Bld) [Vol rate/Area] mL/min/{1.73_m2} Normal >60 [facility] Comment on above: Performed By: #### Eileen A19O, LUPUS #### The performing lab is in the report. #### NSEO #### [facility] #### HEMDF, LDH3, BMP3, MG3, PT, CEA2 #### [facility] [address] [place] [address] #### B2GPM, B2GPA, B2GPG #### [facility] [address] [place] [address] GFR/1.73 sq M.predicted among non-blacks MDRD (S/P/Bld) [Vol rate/Area] 89.9 mL/min/{1.73_m2} Normal >60 [facility] Comment on above: Result Comment: KDIG [...] LDH3, BMP3, MG3, PT, CEA2 #### [facility] [address] [place] [address] #### B2GPM, B2GPA, B2GPG #### [facility] [address] [place] [address] Chloride [Moles/Vol] 104 mmol/L Normal 98-107 [facility] Comment on above: Performed By: #### C A19O, LUPUS #### The performing lab is in the report. #### NSEO #### [facility] #### HEMDF, LDH3, BMP3, MG3, PT, CEA2 #### [place] [address] [place] [address] #### B2GPM, B2GPA, B2GPG #### [address] Potassium [Moles/Vol] 3.9 mmol/L Normal 3.5-5.1 [facility] Comment on above: Performed By: #### C A19O, LUPUS #### The performing lab is in the report. #### NSEO #### [facility] #### HEMDF, LDH3, BMP3, MG3, PT, CEA2 #### [place] [address] [place] [address] #### B2GPM, B2GPA, B2GPG #### [address] Sodium [Moles/Vol] 142 mmol/L Normal 135-145 [facility] Comment on above: Performed By: #### C A19O, LUPUS #### The performing lab is in the report. #### NSEO #### [facility] #### HEMDF, LDH3, BMP3, MG3, PT, CEA2 #### [address] [place] [address] #### B2GPM, B2GPA, B2GPG #### [address] Anion gap [Moles/Vol] 10 mmol/L 3 - 13 mmol/L [facility] Work Phone: Calcium [Mass/Vol] 9.6 mg/dL 8.4 - 10. 4 mg/dL [facility] Work Phone: Chloride [Moles/Vol] 104 mmol/L 98 - 10 7 mmol/L [facility] Work Phone: CO2 [Moles/Vol] 27 mmol/L 22 - 30 mmol/L [employer] Work Phone: Creatinine [Mass/Vol] 0.82 mg/dL 0.52 - 1.25 mg/dL [employer] Work Phone: EGFR IF NonAfrican [place]dean 89.9 mL/min >60 [facility] Work Phone: Comment on above: KDIGO [...] MDRD (S/P/Bld) [Vol rate/Area] mL/min/{1.73_m2} >60 mL/min [employer] Work Phone: Glucose [Mass/Vol] 109 mg/dL High 70 - 100 mg/dL [employer] Work Phone: Interpretation and review of laboratory results Abnormal [facility] Work Phone: Potassium [Moles/Vol] 3.9 mmol/L 3.5 - 5.1 mmol/L [facility] Work Phone: [phone] Sodium [Moles/Vol] 142 mmol/L 135 - 145 mmol/L [facility] Work Phone: Urea nitrogen (BldV) [Mass/Vol] 18 mg/dL High 7 - 17 mg/dL [employer] Work Phone: CBC with Auto Differentialon 10-23-2021 Absolute Baso # 0.1 10*3/uL 0.0 - 0.2 10*3/uL [facility] Work Phone: [phone] Absolute Neut # 6.6 10*3/uL 1.8 - 7.0 10*3/uL [facility] Work Phone: [phone] Basophils/100 WBC (Bld) 1.1 % 0.0 - 2.0 % [facility] Work Phone: [phone] Eosinophils (Bld) [#/Vol] 0.4 10*3/uL 0.0 - 0.5 10*3/uL [facility] Work Phone: [phone] Eosinophils/100 WBC (Bld) 3.9 % 1.0 - 6.0 % [facility] Work Phone: [phone] Granulocytes/100 WBC (Bld) 64.0 % 40.0 - 80.0 % [facility] Work Phone: () 222 Hematocrit (Bld) [Volume fraction] 35.1 % Low 40.0 - 52.0 % [facility] Work Phone: () 222 Hemoglobin (Bld) [Mass/Vol] 11.6 g/dL Low 13.0 - 18.0 g/dL [facility] Work Phone: [phone] Interpretation and review of laboratory results Abnormal [facility] Work Phone: [phone] Lymphocytes (Bld) [#/Vol] 2.6 10*3/uL 1.0 - 4.3 10*3/uL [facility] Work Phone: [phone] Lymphocytes/100 WBC (Bld) 25.0 % 20.0 - 40.0 % [facility] Work Phone: [phone] 222 MCH (RBC) [Entitic mass] 28.4 pg 26.0 - 34.0 pg [facility] Work Phone: [phone] MCHC (RBC) [Mass/Vol] 33.1 % 32.0 - 36.0 % [facility] Work Phone: [phone] MCV (RBC) [Entitic vol] 85.9 fL 80.0 - 98.0 fL [facility] Work Phone: [phone] Monocytes (Bld) [#/Vol] 0.6 10*3/uL 0.0 - 0.8 10*3/uL [facility] Work Phone: [phone] Monocytes/100 WBC (Bld) 6.0 % 2.0 - 10.0 % [facility] Work Phone: [phone] Platelet distribution width (Bld) [Ratio] 17.4 % High 11.5 - 14.5 % [facility] Work Phone: [phone] Platelet mean volume (Bld) [Entitic vol] 8.1 fL 7.4 - 12.4 fL [facility] Work Phone: [phone] Comment on above: MPV is a calculated measurement using platelet volume ratio. Platelets (Bld) [#/Vol] 450 10*3/uL High 140 - 440 10*3/uL [facility] Work Phone: [phone] RBC (Bld) [#/Vol] 4.08 10*6/uL Low 4.40 - 5.9 0 10*6/uL [facility] Work Phone: [phone] WBC (Bld) [#/Vol] 10.3 10*3/uL 3.6 - 10.7 10*3/uL [facility] Work Phone: [phone] Test Performed by [facility], [address] LAB [facility] Work Phone: [phone] CEAon 10-23-2021 CEA 0.8 ng/mL 0.0 - 3.0 ng/mL [facility] Work Phone: [phone] Test Performed by [facility], [address] LAB [facility] Work Phone: [phone] Carcinoembryonic Agon 2021 Carcinoembryonic Ag. 0.8 ng/mL Normal 0.0-3.0 [facility] Comment on above: Performed By: #### C A19O, LUPUS #### The performing lab is in the report. #### NSEO #### [facility] #### HEMDF, LDH3, BMP3, MG3, PT, CEA2 #### [facility] [address] [place] [address] #### B2GPM, B2GPA, B2GPG #### [address] Hemogram w/ Autodiffon 10-23 Abs Baso Cnt 0.1 10*3/uL Normal 0.0-0.2 [facility] Comment on above: Performed By: #### C A19O, LUPUS #### The performing lab is in the report. #### NSEO #### [facility] #### HEMDF, LDH3, BMP3, MG3, PT, CEA2 #### [facility] [address] [place] [address] #### B2GPM, B2GPA, B2GPG #### [address] Abs Neutrophile Cnt 6.6 10*3/uL Normal 1.8-7.0 [facility] Comment on above: Performed By: #### C A19O, LUPUS #### The performing lab is in the report. #### NSEO #### [facility] #### HEMDF, LDH3, BMP3, MG3, PT, CEA2 #### [facility] [address] [place], [place] #### B2GPM, B2GPA, B2GPG #### [address] Basophils/100 WBC (Bld) 1.1 % Normal 0.0-2.0 [facility] Comment on above: Performed By: #### C A19O, LUPUS #### The performing lab is in the report. #### NSEO #### [facility] #### HEMDF, LDH3, BMP3, MG3, PT, CEA2 #### [facility] [address] [place], [place] #### B2GPM, B2GPA, B2GPG #### [address] Eosinophils (Bld) [#/Vol] 0.4 10*3/uL Normal 0.0-0.5 [facility] Comment on above: Performed By: #### C A19O, LUPUS #### The performing lab is in the report. #### NSEO #### [facility] #### HEMDF, LDH3, BMP3, MG3, PT, CEA2 #### [place] [address] [place] [address] #### B2GPM, B2GPA, B2GPG #### [address] [address] Eosinophils/100 WBC (Bld) 3.9 % Normal 1.0-6.0 [facility] Comment on above: Performed By: #### C A19O, LUPUS #### The performing lab is in the report. #### NSEO #### [facility] #### HEMDF, LDH3, BMP3, MG3, PT, CEA2 #### [address] [place] [address] #### B2GPM, B2GPA, B2GPG #### [address] [address] Erythrocyte distribution width (RBC) [Ratio] 17.4 % High 11.5-14.5 [facility] Comment on above: Performed By: #### C A19O, LUPUS #### The performing lab is in the report. #### NSEO #### [facility] #### HEMDF, LDH3, BMP3, MG3, PT, CEA2 #### [address] [place] [address] #### B2GPM, B2GPA, B2GPG #### [address] [address] Granulocytes/100 WBC (Bld) 64.0 % Normal 40.0-80.0 [facility] Comment on above: Performed By: #### C A19O, LUPUS #### The performing lab is in the report. #### NSEO #### [facility] #### HEMDF, LDH3, BMP3, MG3, PT, CEA2 #### [place] [address] [place] #### B2GPM, B2GPA, B2GPG #### [address] Hematocrit (Bld) [Volume fraction] 35.1 % Low 40.0-52.0 [facility] Comment on above: Performed By: #### C A19O, LUPUS #### The performing lab is in the report. #### NSEO #### [facility] #### HEMDF, LDH3, BMP3, MG3, PT, CEA2 #### [address] [place] #### B2GPM, B2GPA, B2GPG #### [address] Hemoglobin (Bld) [Mass/Vol] 11.6 g/dL Low 13.0-18.0 [facility] Comment on above: Performed By: #### C A19O, LUPUS #### The performing lab is in the report. #### NSEO #### [facility] #### HEMDF, LDH3, BMP3, MG3, PT, CEA2 #### [address] [place] #### B2GPM, B2GPA, B2GPG #### [address] Lymphocytes (Bld) [#/Vol] 2.6 10*3/uL Normal 1.0-4.3 [facility] Comment on above: Performed By: #### C A19O, LUPUS #### The performing lab is in the report. #### NSEO #### [facility] #### HEMDF, LDH3, BMP3, MG3, PT, CEA2 #### [address] [place] #### B2GPM, B2GPA, B2GPG #### [address] Lymphocytes/100 WBC (Bld) 25.0 % Normal 20.0-40.0 [facility] Comment on above: Performed By: #### C A19O, LUPUS #### The performing lab is in the report. #### NSEO #### [facility] #### HEMDF, LDH3, BMP3, MG3, PT, CEA2 #### [place] [address] [place] [address] #### B2GPM, B2GPA, B2GPG #### [address] MCH (RBC) [Entitic mass] 28.4 pg Normal 26.0-34.0 [facility] Comment on above: Performed By: #### C A19O, LUPUS #### The performing lab is in the report. #### NSEO #### [facility] #### HEMDF, LDH3, BMP3, MG3, PT, CEA2 #### [address] [place] #### B2GPM, B2GPA, B2GPG #### [address] MCHC 33.1 % Normal 32.0-36.0 [facility] Comment on above: Performed By: #### C A19O, LUPUS #### The performing lab is in the report. #### NSEO #### [facility] #### HEMDF, LDH3, BMP3, MG3, PT, CEA2 #### [address] [place] [address] #### B2GPM, B2GPA, B2GPG #### [address] MCV (RBC) [Entitic vol] 85.9 fL Normal 80.0-98.0 [facility] Comment on above: Performed By: #### C A19O, LUPUS #### The performing lab is in the report. #### NSEO #### [facility] #### HEMDF, LDH3, BMP3, MG3, PT, CEA2 #### [place] [address] [place] #### B2GPM, B2GPA, B2GPG #### [address] Monocytes (Bld) [#/Vol] 0.6 10*3/uL Normal 0.0-0.8 [facility] Comment on above: Performed By: #### C A19O, LUPUS #### The performing lab is in the report. #### NSEO #### [facility] #### HEMDF, LDH3, BMP3, MG3, PT, CEA2 #### [address] [place] #### B2GPM, B2GPA, B2GPG #### [address] Monocytes/100 WBC (Bld) 6.0 % Normal 2.0-10.0 [facility] Comment on above: Performed By: #### C A19O, LUPUS #### The performing lab is in the report. #### NSEO #### [facility] #### HEMDF, LDH3, BMP3, MG3, PT, CEA2 #### [address] [facility] [place] #### B2GPM, B2GPA, B2GPG #### [address] Platelet mean volume (Bld) [Entitic vol] 8.1 fL Normal 7.4-12.4 [facility] Comment on above: Result Comment: MPV is a calculated measurement using platelet volume ratio. Performed By: #### C A19O, LUPUS #### The performing lab is in the report. #### NSEO #### [facility] #### HEMDF, LDH3, BMP3, MG3, PT, CEA2 #### [address] [place] #### B2GPM, B2GPA, B2GPG #### [address] Platelets (Bld) [#/Vol] 450 10*3/uL High 140-440 [facility] Comment on above: Performed By: #### C A19O, LUPUS #### The performing lab is in the report. #### NSEO #### [facility] #### HEMDF, LDH3, BMP3, MG3, PT, CEA2 #### [facility] [address] [place] [address] #### B2GPM, B2GPA, B2GPG #### [address] RBC (Bld) [#/Vol] 4.08 10*6/uL Low 4.40-5.90 [facility] Comment on above: Performed By: #### C A19O, LUPUS #### The performing lab is in the report. #### NSEO #### [facility] #### HEMDF, LDH3, BMP3, MG3, PT, CEA2 #### [facility] [address] [place] #### B2GPM, B2GPA, B2GPG #### [address] WBC (Bld) [#/Vol] 10.3 10*3/uL Normal 3.6-10.7 [facility] Comment on above: Performed By: #### C A19O, LUPUS #### The performing lab is in the report. #### NSEO #### [facility] #### HEMDF, LDH3, BMP3, MG3, PT, CEA2 #### [facility] [address] [place] [facility] [place] #### B2GPM, B2GPA, B2GPG #### [address] LDHon 10-23-2021 LDH 136 U/L Normal 120-246 [facility] Comment on above: Performed By: #### C A19O, LUPUS #### The performing lab is in the report. #### NSEO #### [facility] #### HEMDF, LDH3, BMP3, MG3, PT, CEA2 #### [employer] [address] [place] [address] #### B2GPM, B2GPA, B2GPG #### [email or web address] [facility] [address] [place] [address] Lactate Dehydrogenaseon 10-05 LD 136 U/L 120 - 246 U/L [facility] Work Phone: MRI ABDOMEN WO CONTRASTon Patient Name: ANDREW SIFUENTES [facility] ACCESSION EXAM DATE/TIME PROCEDURE ORDERING PROVIDER [id number] 10/23/2021 11:08 EDT MRI Abdomen w/o Contrast DONOVAN SRIVASTAVAW CPT code 19695 Reason For Exam (MRI Abdomen w/o Contrast) [...] Imaging ACCESSION EXAM DATE/TIME PROCEDURE ORDERING PROVIDER [id number] 10/23/2021 11:08 EDT MRI Abdomen w/o Contrast WING SRIVASTAVA CPT code 20152 Reason For Exam (MRI Abdomen w/o Contrast) [...] CONTRASTOrder ed By: Unknown Result on 10-23-2021 [facility] MRI Abdomen w/o Contraston 0 10-23-2021 MRI Abdomen w/o Contrast Patient Name: ANDREW SIFUENTES [facility] ACCESSION EXAM DATE/TIME PROCEDURE ORDERING PROVIDER [id number] 10/23/2021 11:08 EDT MRI Abdomen w/o Contrast WING SRIVASTAVA CPT code 51332 Reason For Exam (MRI Abdomen w/o Contrast) [...] Date and Time: 10/23/2021 4:36 Normal [facility] Magnesiumon 10-23-2021 Magnesium [Mass/Vol] 2.1 mg/dL Normal 1.6-2.3 [facility] Comment on above: Performed By: #### C A19O, LUPUS #### The performing lab is in the report. #### NSEO #### [facility] #### HEMDF, LDH3, BMP3, MG3, PT, CEA2 #### [facility] [address] [place] [address] #### B2GPM, B2GPA, B2GPG #### [address] [id number] Magnesium [Mass/Vol] 2.1 mg/dL 1.6 - 2 .3 mg/dL [facility] Work Phone: No Panel Informationon 10-23 Test Performed by [facility], [address] [place], [place] [address] [facility] Work Phone: Prothrombin Timeon 2 INR 1.1 Normal 0.9-1.1 [facility] Comment on above: Result Comment: Harry [...] HEMDF, LDH3, BMP3, MG3, PT, CEA2 #### [address] [place] [address] #### B2GPM, B2GPA, B2GPG #### [address] [id number] PT Coag (PPP) [Time] 12.2 s High 9.0-12.0 [facility] Comment on above: Result Comment: . Performed By: #### C A19O, LUPUS #### The performing lab is in the report. #### NSEO #### [facility] #### HEMDF, LDH3, BMP3, MG3, PT, CEA2 #### [address] [place] [address] #### B2GPM, B2GPA, B2GPG #### [address] [id number] Protime-INRon 10-23-2021 INR Coag (Bld) [Relative time] 1.1 {INR} [facility] Work Phone: Comment on above: Recommended [...] Interpretation and review of laboratory results Abnormal [facility] Work Phone: PT Coag (PPP) [Time] 12.2 s High 9.0 - 12.0 s [facility] Work Phone: Comment on above: . Test Performed by [facility], [address] [place] [address] [facility] Work Phone: Basic Metabolic Panelon 10-05 Calcium [Mass/Vol] 8.9 mg/dL Normal 8.4-10.4 [facility] Comment on above: Performed By: #### P T #### [facility] [address] [place] [address] Glucose [Mass/Vol] 110 mg/dL High 70-100 [facility] Comment on above: Performed By: #### P T #### [facility] [address] [place] [address] Urea nitrogen [Mass/Vol] 14 mg/dL Normal 7-17 [facility] Comment on above: Performed By: #### P T #### [facility] [address] [place] [address] Anion gap [Moles/Vol] 7 mmol/L Normal 3-13 [facility] Comment on above: Performed By: #### P T #### [facility] [address] [place] [address] CO2 [Moles/Vol] 26 mmol/L Normal 22-30 [facility] Comment on above: Performed By: #### P T #### [facility] [address] [place] [address] Creatinine [Mass/Vol] 0.71 mg/dL Normal 0.52-1.25 [facility] Comment on above: Performed By: #### P T #### [facility] [address] [place] [address] eGFR OTHER > 90.0 Normal >60 [facility] Comment on above: Result Comment: KDIG [...] Performed By: #### P T #### [facility] [address] [place] [address] GFR/1.73 sq M.predicted among blacks MDRD (S/P/Bld) [Vol rate/Area] mL/min/{1.73_m2} Normal >60 [facility] Comment on above: Performed By: #### P T #### [facility] [address] [place] [address] Potassium [Moles/Vol] 3.8 mmol/L Normal 3.5-5.1 [facility] Comment on above: Performed By: #### P T #### [facility] [address] [place] [address] Chloride [Moles/Vol] 106 mmol/L Normal 98-107 [facility] Comment on above: Performed By: #### P T #### [facility] [address] [place] [address] Sodium [Moles/Vol] 139 mmol/L Normal 135-145 [facility] Comment on above: Performed By: #### P T #### [facility] [address] [place] [address] Anion gap [Moles/Vol] 7 mmol/L 3 - 13 mmol/L [facility] Calcium [Mass/Vol] 8.9 mg/dL 8.4 - 10. 4 mg/dL [facility] Chloride [Moles/Vol] 106 mmol/L 98 - 10 7 mmol/L [facility] CO2 [Moles/Vol] 26 mmol/L 22 - 30 mmol/L [facility] Creatinine [Mass/Vol] 0.71 mg/dL 0.52 - 1.25 mg/dL [facility] EGFR IF NonAfrican Cape Verdean >90.0 >60 mL/min [facility] Comment on above: [...] 10*3/uL [facility] Test Performed by [facility], [address] [place], [place] [address] [place] [address] [address] [facility]en Pelvis Wo Contras ton 10-22-2021 Patient Name: ANDREW SIFUENTES Computed Tomography ACCESSION EXAM DATE/TIME PROCEDURE ORDERING PROVIDER [id number] 10/22/2021 13:[address] Abdomen/Pelvis (No SRIVASTAVA, WING PO, No IV) CPT code 12697 Reason For Exam (CT Abdomen/Pelvis (No PO, [...] HARLAN Transcribed Date and Time: 10/22/2021 2:37 [facility] Humphrey Melton MD - 10/22/2021 Patient Name: ANDREW SIFUENTES Computed Tomography ACCESSION EXAM DATE/TIME PROCEDURE ORDERING PROVIDER [id number] 10/22/2021 13:[address] Abdomen/Pelvis (No SRIVASTAVA, WING PO, No IV) CPT code 39191 Reason For Exam (CT Abdomen/Pelvis (No PO, [...] CT Abdomen/Pelvis w/o Contrast Patient Name: ANDREW SIFUNETES Computed Tomography ACCESSION EXAM DATE/TIME PROCEDURE ORDERING PROVIDER [id number] 10/22/2021 13:[address] Abdomen/Pelvis (No SRIVASTAVA, WING PO, No IV) CPT code 93612 Reason For Exam (CT Abdomen/Pelvis (No PO, [...] Date and Time: 10/22/2021 2:37 Normal [facility] Hemogram w/ Autodiffon 10-22 Abs Baso Cnt 0.1 10*3/uL Normal 0.0-0.2 [facility] Comment on above: Performed By: #### P T #### [facility] [address] [place] [address] Abs Neutrophile Cnt 6.0 10*3/uL Normal 1.8-7.0 [facility] Comment on above: Performed By: #### P T #### [facility] [address] [place] [address] Basophils/100 WBC (Bld) 1.0 % Normal 0.0-2.0 [facility] Comment on above: Performed By: #### P T #### [facility] [address] [place] [address] Eosinophils (Bld) [#/Vol] 0.3 10*3/uL Normal 0.0-0.5 [facility] Comment on above: Performed By: #### P T #### [facility] [address] [place] [address] Eosinophils/100 WBC (Bld) 3.0 % Normal 1.0-6.0 [facility] Comment on above: Performed By: #### P T #### [facility] [address] [place] [address] Erythrocyte distribution width (RBC) [Ratio] 17.1 % High 11.5-14.5 [facility] Comment on above: Performed By: #### P T #### [facility] [address] [place] [address] Granulocytes/100 WBC (Bld) 64.1 % Normal 40.0-80.0 [facility] Comment on above: Performed By: #### P T #### [facility] [address] [place] [address] Hematocrit (Bld) [Volume fraction] 33.4 % Low 40.0-52.0 [facility] Comment on above: Performed By: #### P T #### [facility] [address] [place] [address] Hemoglobin (Bld) [Mass/Vol] 10.9 g/dL Low 13.0-18.0 [facility] Comment on above: Performed By: #### P T #### [facility] [address] [place] [address] Lymphocytes (Bld) [#/Vol] 2.5 10*3/uL Normal 1.0-4.3 [facility] Comment on above: Performed By: #### P T #### [facility] [address] [place] [address] Lymphocytes/100 WBC (Bld) 26.3 % Normal 20.0-40.0 [facility] Comment on above: Performed By: #### P T #### [place] [address] [place] [address] MCH (RBC) [Entitic mass] 28.2 pg Normal 26.0-34.0 [facility] Comment on above: Performed By: #### P T #### [place] [address] [place] [address] MCHC 32.7 % Normal 32.0-36.0 [facility] Comment on above: Performed By: #### P T #### [facility] [address] [place] [address] MCV (RBC) [Entitic vol] 86.3 fL Normal 80.0-98.0 [facility] Comment on above: Performed By: #### P T #### [place] [address] [place] [address] Monocytes (Bld) [#/Vol] 0.5 10*3/uL Normal 0.0-0.8 [facility] Comment on above: Performed By: #### P T #### [facility] [address] [place] [address] Monocytes/100 WBC (Bld) 5.6 % Normal 2.0-10.0 [facility] Comment on above: Performed By: #### P T #### [place] [address] [place] [address] Platelet mean volume (Bld) [Entitic vol] 7.6 fL Normal 7.4-12.4 [facility] Comment on above: Result Comment: MPV is a calculated measurement using platelet volume ratio. Performed By: #### P T #### [place] [address] [place] [address] Platelets (Bld) [#/Vol] 369 10*3/uL Normal 140-440 [facility] Comment on above: Performed By: #### P T #### [facility] [address] [place] [address] RBC (Bld) [#/Vol] 3.87 10*6/uL Low 4.40-5.90 [facility] Comment on above: Performed By: #### P T #### [facility] [address] [place] [address] WBC (Bld) [#/Vol] 9.4 10*3/uL Normal 3.6-10.7 [facility] Comment on above: Performed By: #### P T #### [facility] [address] [place] [address] Magnesiumon 10-22-2021 Magnesium [Mass/Vol] 2.0 mg/dL Normal 1.6-2.3 [facility] Comment on above: Performed By: #### P T #### [facility] [address] [place] [address] Magnesium [Mass/Vol] 2.0 mg/dL 1.6 - 2 .3 mg/dL [facility] No Panel Informationon 10-22 Radiology Study observation (narrative) [facility] Work Phone: Test Performed by [facility], [address] [place] [address] [facility] Prothrombin Timeon 2 INR 1.1 Normal 0.9-1.1 [facility] Comment on above: Result Comment: Harry [...] LDH3, BMP3, MG3, PT, CEA2 #### [facility] [address] [place] [address] #### B2GPM, B2GPA, B2GPG #### [facility] [address] [place] [address] PT Coag (PPP) [Time] 11.8 s Normal 9.0-12.0 [facility] Comment on above: Result Comment: . Performed By: #### C A19O, LUPUS #### The performing lab is in the report. #### NSEO #### [facility] #### HEMDF, LDH3, BMP3, MG3, PT, CEA2 #### [facility] [address] [place] [address] #### B2GPM, B2GPA, B2GPG #### [address] [address] Protime-INRon 10-22-2021 INR Coag (Bld) [Relative time] 1.1 {INR} [facility] Work Phone: Comment on above: Recommended [...] [Time] 11.8 s 9.0 - 12.0 s [facility] Work Phone: Comment on above: . Test Performed by [facility], [address], [place], [place] [address] [facility] Work Phone: VL Ankle Art Brachial Indice s Extremity Bilateralon 10-22-2021 [facility] Ankle Brachial Index Report Patient RADHA Sifuentes: 1950 Study 10/21/2021 Name: Andrew Gonzalez (71yrs) Date: Age: 71 Account: [id number] Gender: M Loc: 444W BP: Ordering Physician: Shruthi Malik Millwork Estimator: Rody Cross RDMS, RVT Interpreting Physician: Carina Call Location: [facility] Indications: Foot wounds. Originally ordered as a full PVR. Ordering SUPPLY CHAIN ANALYST had to modify the order to [...] supine position. Images were obtained using a [employer] vascular ultrasound machine. Arterial pressure indices: + [...] electronically signed by Carina Call 10/22/2021 13:21 [facility] Carina Call MD - 10/22/2021 [facility] Ankle Brachial Index Report Patient RADHA Sifuentes: 1950 Study 10/21/2021 Name: Andrew Gonzalez (71yrs) Date: Age: 71 Account: [id number] Gender: M Loc: 444W BP: Ordering Physician: Shruthi Malik Millwork Estimator: Rody Cross RDMS, RVT Interpreting Physician: Carina Call Location: [facility] Indications: Foot wounds. Originally ordered as a full PVR. Ordering SUPPLY CHAIN ANALYST had to modify the order to [...] supine position. Images were obtained using a [employer] vascular ultrasound machine. Arterial pressure indices: + [...] electronically signed by Carina Call 10/22/2021 13:21 [facility] Work Phone: [facility] Work Phone: Basic Metabolic Panelon 10-05 Calcium [Mass/Vol] 9.1 mg/dL Normal 8.4-10.4 [facility] Comment on above: Performed By: #### C OVAG #### [facility] [address] [place] [address] Anion gap [Moles/Vol] 6 mmol/L Normal 3-13 [facility] Comment on above: Performed By: #### C OVAG #### [facility] [address] [place] [address] CO2 [Moles/Vol] 29 mmol/L Normal 22-30 [facility] Comment on above: Performed By: #### C OVAG #### [facility] [address] [place] [address] Creatinine [Mass/Vol] 0.90 mg/dL Normal 0.52-1.25 [facility] Comment on above: Performed By: #### C OVAG #### [facility] [address] [place] [address] GFR/1.73 sq M.predicted among blacks MDRD (S/P/Bld) [Vol rate/Area] mL/min/{1.73_m2} Normal >60 [facility] Comment on above: Performed By: #### C OVAG #### [facility] [address] [place] [address] GFR/1.73 sq M.predicted among non-blacks MDRD (S/P/Bld) [Vol rate/Area] 86.6 mL/min/{1.73_m2} Normal >60 [facility] Comment on above: Result Comment: KDIG [...] Performed By: #### C OVAG #### [facility] [address] [place] [address] Glucose [Mass/Vol] 106 mg/dL High 70-100 [facility] Comment on above: Performed By: #### C OVAG #### [facility] [address] [place] [address] Urea nitrogen [Mass/Vol] 18 mg/dL High 7-17 [facility] Comment on above: Performed By: #### C OVAG #### [facility] [address] [place] [address] Chloride [Moles/Vol] 105 mmol/L Normal 98-107 [facility] Comment on above: Performed By: #### C OVAG #### [facility] [address] [place] [address] Potassium [Moles/Vol] 4.3 mmol/L Normal 3.5-5.1 [facility] Comment on above: Performed By: #### C OVAG #### [facility] [address] [place] [address] Sodium [Moles/Vol] 139 mmol/L Normal 135-145 [facility] Comment on above: Performed By: #### C OVAG #### [facility] [address] [place] [address] Anion gap [Moles/Vol] 6 mmol/L 3 - 13 mmol/L [facility] Calcium [Mass/Vol] 9.1 mg/dL 8.4 - 10. 4 mg/dL [facility] Chloride [Moles/Vol] 105 mmol/L 98 - 10 7 mmol/L [facility] CO2 [Moles/Vol] 29 mmol/L 22 - 30 mmol/L [facility] Creatinine [Mass/Vol] 0.9 mg/dL 0.52 - 1.25 mg/dL [facility] EGFR IF NonAfrican [place] Verdean 86.6 mL/min >60 [facility] Comment on above: KDIGO guidelines pro [...] mg/dL [facility] Test Performed by [facility], [address] LAB [facility] C-Reactive Proteinon 022 CRP [Mass/Vol] 33.5 mg/L High 0.0-9.9 [facility] Comment on above: Result Comment: . Performed By: #### P T #### [facility] [address] [place] [address] CRP [Mass/Vol] 33.5 mg/L High 0.0 - 9.9 mg/L [facility] Comment on above: . Interpretation and review of laboratory results Abnormal [facility] Test Performed by [facility], [address] LAB [facility] CR Calcaneus 2+ Views Lefton 10-21-2021 CR Calcaneus 2+ Views Left Patient Name: ANDREW SIFUENTES Diagnostic Radiology ACCESSION EXAM DATE/TIME PROCEDURE ORDERING PROVIDER [id number] 10/21/2021 15:30 EDT CR Calcaneus 2+ Views [id number] -SHRUTHI MALIK Left CPT code 19771 Reason For Exam (CR Calcaneus 2+ Views [...] Date and Time: 10/21/2021 4:33 Normal [facility] CR Chest 1 View Frontalon CR Chest 1 View Frontal Patient Name: ANDREW SIFUENTES Diagnostic Radiology ACCESSION EXAM DATE/TIME PROCEDURE ORDERING PROVIDER [id number] 10/21/2021 08:16 EDT CR Chest 1 View Frontal [id number] MAY BOGGS CPT code 27761 Reason For Exam (CR Chest 1 View [...] 10/21/2021 8:32 am Signed by: MD KHARI, [place] LUISA RACHEL Transcribed Date and Time: 10/21/2021 8:33 Normal [facility] D-Dimer, Innovanceon 022 D-Dimer, Innovance 1.51 mg/L High <0.19-0.50 [facility] Comment on above: Result Comment: Inno saba D-Dimer values of <0.50 mg/L FEU can be used in combination with a pre-test probability model (e.g. Well's) to exclude pulmonary embolism (PE) disease, as well as an aid in the diagnosis of deep vein thrombosis (DVT). Performed By: #### P T #### [facility] [address] [place] [address] D-Dimer, Quantitativeon 10-05 D-Dimer, Quant 1.51 mg/L High <0.19 - 0.50 [facility] Comment on above: Innovance D-Dimer va lues of <0.50 mg/L FEU can be used in combination with a pre-test probability model (e.g. Well's) to exclude pulmonary embolism (PE) disease, as well as an aid in the diagnosis of deep vein thrombosis (DVT). Interpretation and review of laboratory results Abnormal [facility] Test Performed by [facility], [address], [place], [place] [address] [facility] ED Provider Noteon 2 ED Provider Note [facility] ED EMERGENCY DEPARTMENT ENCOUNTER Pt Name: [...] (HCC) ? Kidney stone ? Neuropathy ? RN INVASIVE (ventriculoperitoneal) shunt status SURGICAL HISTORY Past Surgical [...] and Family: Not on file ? Attends Restorationist Services: Not on file ? Active Member [...] LUNGS: Respirations (more content not included)... Normal [facility] Hemogramon 10-21-2021 Erythrocyte distribution width (RBC) [Ratio] 17.3 % High 11.5-14.5 [facility] Comment on above: Performed By: #### C OVAG #### [facility] [address] [place] [address] Hematocrit (Bld) [Volume fraction] 33.6 % Low 40.0-52.0 [facility] Comment on above: Performed By: #### C OVAG #### [facility] [address] [place] [address] Hemoglobin (Bld) [Mass/Vol] 10.9 g/dL Low 13.0-18.0 [facility] Comment on above: Performed By: #### C OVAG #### [facility] [address] [place] [address] MCH (RBC) [Entitic mass] 27.8 pg Normal 26.0-34.0 [facility] Comment on above: Performed By: #### C OVAG #### [facility] [address] [place] [address] MCHC 32.5 % Normal 32.0-36.0 [facility] Comment on above: Performed By: #### C OVAG #### [facility] [address] [place] [address] MCV (RBC) [Entitic vol] 85.6 fL Normal 80.0-98.0 [facility] Comment on above: Performed By: #### C OVAG #### [facility] [address] [place] [address] Platelet mean volume (Bld) [Entitic vol] 7.7 fL Normal 7.4-12.4 [facility] Comment on above: Result Comment: MPV is a calculated measurement using platelet volume ratio. Performed By: #### C OVAG #### [facility] [address] [place] [address] Platelets (Bld) [#/Vol] 404 10*3/uL Normal 140-440 [facility] Comment on above: Performed By: #### C OVAG #### [facility] [address] [place] [address] RBC (Bld) [#/Vol] 3.93 10*6/uL Low 4.40-5.90 [facility] Comment on above: Performed By: #### C OVAG #### [facility] [address] [place] [address] WBC (Bld) [#/Vol] 11.6 10*3/uL High 3.6-10.7 [facility] Comment on above: Performed By: #### C OVAG #### [facility] [address] [place] [address] Hemogram (CBC)on 10-21-2021 Hematocrit (Bld) [Volume fraction] 33.6 % Low 40.0 - 52.0 % [facility] Hemoglobin (Bld) [Mass/Vol] 10.9 g/dL Low 13.0 - 18.0 g/dL [facility] Interpretation and review of laboratory results Abnormal [facility] MCH (RBC) [Entitic mass] 27.8 pg 26.0 - 34.0 pg [facility] MCHC (RBC) [Mass/Vol] 32.5 % 32.0 - 36.0 % [facility] MCV (RBC) [Entitic vol] 85.6 fL 80.0 - 98.0 fL [facility] Platelet distribution width (Bld) [Ratio] 17.3 % High 11.5 - 14.5 % [facility] Platelet mean volume (Bld) [Entitic vol] 7.7 fL 7.4 - 12.4 fL [facility] Comment on above: MPV is a calculated measurement using platelet volume ratio. Platelets (Bld) [#/Vol] 404 10*3/uL 140 - 440 10*3/uL [facility] RBC (Bld) [#/Vol] 3.93 10*6/uL Low 4.40 - 5.9 0 10*6/uL [facility] WBC (Bld) [#/Vol] 11.6 10*3/uL High 3.6 - 10.7 10*3/uL [facility] Test Performed by [facility], [address] [place], [place], [place] [address] [facility] NM LUNG VENT/PERFUSION (VQ)o n 10-21-2021 Patient Name: ANDREW SIFUENTES Nuclear Medicine ACCESSION EXAM DATE/TIME PROCEDURE ORDERING PROVIDER [id number] 10/21/2021 07:55 EDT NM Pulmonary Perfusion [id number] -MAY CASH w/ Vent Aerosol CPT code 40917 A9567 Reason For Exam (NM Pulmonary Perfusion [...] Medicine ACCESSION EXAM DATE/TIME PROCEDURE ORDERING PROVIDER [id number] 10/21/2021 07:55 EDT NM Pulmonary Perfusion [id number] MAY BOGGS w/ Vent Aerosol CPT code 61368 A9567 Reason For Exam (NM Pulmonary Perfusion [...] JOHN Transcribed Date and Time: 10/21/2021 8:49 [facility] Work Phone: NM LUNG VENT/PERFUSION (VQ)O rdered By: Henry Harvey on 10-21-2021 [facility] Work Phone: NM Pulmonary Perfusion w/ Ve nt Aerosol or Gason 10-21-2021 NM Pulmonary Perfusion w/ Vent Aerosol or Gas [facility]: [id number] ACCESSION EXAM DATE/TIME PROCEDURE ORDERING PROVIDER [id number] 10/21/2021 07:55 EDT NM Pulmonary Perfusion [id number] LilliSHAILESH MAY w/ Vent Aerosol CPT code 24481 A9567 Reason For Exam (NM Pulmonary Perfusion [...] Date and Time: 10/21/2021 8:49 Normal [facility] No Panel Informationon 10-21 Radiology Study observation (narrative) [facility] Work Phone: Prothrombin Timeon 2 INR 1.1 Normal 0.9-1.1 [facility] Comment on above: Result Comment: Harry [...] Performed By: #### C OVAG #### [facility] [address] [place] [address] PT Coag (PPP) [Time] 11.5 s Normal 9.0-12.0 [facility] Comment on above: Result Comment: . Performed By: #### C OVAG #### [facility] [address] [place] [address] Protime-INRon 10-21-2021 INR Coag (Bld) [Relative time] 1.1 {INR} [facility] Comment on above: Recommended Anticoag ulant [...] [Time] 11.5 s 9.0 - 12.0 s [facility] Comment on above: . Test Performed by [facility], [address] LAB [facility] Retic Count(%)on 10-21-2021 Retic Count(%) 1.6 Normal [facility] Comment on above: Result Comment: Newb orn < 5% Adults 0.5 - 1.5% Performed By: #### P T #### [facility] [address] [place] [address] Reticulocyteson 10-21-[address] Pct 1.6 [facility] Comment on above: < 5% Adults 0.5 - 1.5% Test Performed by [facility], [address] [place], [place] [address] [place] [address] LAB [facility] Sed Rateon 10-21-2021 Sed Rate 63 mm/h High 0-10 [facility] Comment on above: Performed By: #### P T #### [facility] [address] [place] [address] Sedimentation Rateon 022 Interpretation and review of laboratory results Abnormal [facility] Sed Rate 63 mm/h High 0 - 10 mm/h [facility] Test Performed by [facility], [address], [place] [address] [facility] VL CARMELLA Upr/L Extremity Art 1 -2 Levelson 10-21-2021 VL CARMELLA Upr/L Extremity Art 1-2 Levels Patient Name: ANDREW SIFUENTES Ultrasound ACCESSION EXAM DATE/TIME PROCEDURE ORDERING PROVIDER [id number] 10/21/2021 16:12 EDT VL Upr/L Extremity Art 913646 -SHRUTHI MALIK 1-2 Levels CPT code 66886 Reason For Exam (VL Upr/L Extremity Art 1-2 Levels) both lower legs CARMELLA for both feet wounds. Report [facility] Ankle Brachial Index Report Patient DO GurpreetB: 1950 Study 10/21/2021 Name: Andrew Gonzalez (71yrs) Date: Age: 71 Account: [id number] Gender: M Loc: 444W BP: Ordering Physician: Shruthi Malik Millwork Estimator: Rody Cross RDMS, RVT Interpreting Physician: Carina Call Location: [facility] Indications: Foot wounds. Originally ordered as a full PVR. Ordering SUPPLY CHAIN ANALYST had to modify the order to [...] supine position. Images were obtained using a [employer] E10s vascular ultrasound machine. Arterial pressure indices: [...] CARINA HENNESSY Cardiovascular ACCESSION EXAM DATE/TIME PROCEDURE [id number] 10/21/2021 16:12 EDT VL Upr/L Extremity Art 1-2 Levels CPT code 91217 Reason For Exam (VL Upr/L Extremity Art 1-2 Levels) both lower legs CARMELLA for both feet wounds. Report [facility] Ankle Brachial Index Report Patient DO GurpreetB: 1950 Study 10/21/2021 Name: Andrew Gonzalez (71yr) Date: Age: 71 Account: [id number] Cardiovascular Report Gender: M Loc: 444W BP: Ordering Physician: Shruthi Malik Millwork Estimator: Rody Cross RDMS, RVT Interpreting Physician: Carina Call Location: [facility] Indications: Foot wounds. Originally ordered as a full PVR. Ordering SUPPLY CHAIN ANALYST had to modify the order to [...] th (more content not included)... Normal [facility] VL LOWER EXTREMITY BILATERAL VENOUS DUPLEXon 10-21-2021 [facility] Lower Extremity Venous Duplex Report Patient DO GurpreetB: 1950 Study 10/21/2021 Name: Andrew Gonzalez (71yrs) Date: Age: 71 Account: [id number] Gender: M Loc: 444 BP: Ordering Physician: May Cash Millwork Estimator: Rody Cross RDMS, RVT Interpreting Physician: Carina Call Location: [facility] Indications: Bilateral lower leg edema. [...] supine position. Images were obtained using a [employer] vascular ultrasound machine. Venous flow and imaging: [...] +-------- --------+ + (more content not included)... [facility] CARDIOLOG[facility] Carina Call MD - 10/21/2021 [facility] Lower Extremity Venous Duplex Report Patient DO GurpreetB: 1950 Study 10/21/2021 Name: Andrew Gonzalez (71yrs) Date: Age: 71 Account: [id number] Gender: M Loc: 444 BP: Ordering Physician: May Cash Millwork Estimator: Rody Cross RDMS, RVT Interpreting Physician: Carina Call Location: [facility] Indications: Bilateral lower leg edema. [...] supine position. Images were obtained using a [employer] vascular ultrasound machine. Venous flow and imaging: [...] +-------- --------+ + + +L +Patent + +Anun sible + +saphenofemoral + + + + +junction + + + + + +-------- --------+ + + +L profunda +Patent + +------- + +femoral + + + + + +----- (more content not included)... [employer] Work Phone: VL LOWER EXTREMITY BILATERAL VENOUS DUPLEXOrdered By: Carina Call on 10-21-2021 [employer] Work Phone: VL Venous Duplex US Lower Ex t Bilateralon 10-21-2021 VL Venous Duplex US Lower Ext Bilateral Patient Name: ANDREW SIFUENTES Ultrasound ACCESSION EXAM DATE/TIME PROCEDURE ORDERING PROVIDER [id number] 10/21/2021 09:53 EDT VL Venous Duplex US [id number] -MAY CASH Lower Ext Bilateral CPT code 47731 Reason For Exam (VL Venous Duplex US Lower Ext Bilateral) bilateral sqwelling redness Report [facility] Lower Extremity Venous Duplex Report Patient DO GurpreetB: 1950 Study 10/21/2021 Name: Andrew Gonzalez (71yrs) Date: Age: 71 Account: [id number] Gender: M Loc: [facility] BP: Ordering Physician: May Cash Millwork Estimator: Rody Cross RDMS, RVJamison Interpreting Physician: Carina Call Location: [facility] Indications: Bilateral lower leg edema. [...] supine position. Images were obtained using a [employer] vascular ultrasound machine. Venous flow and imaging: [...] + + (more content not included)... Normal [email or web address] XR CALCANEUS LEFT (MIN 2 VIE WS)on 10-21-2021 Patient Name: ANDREW SIFUENTES Diagnostic Radiology ACCESSION EXAM DATE/TIME PROCEDURE ORDERING PROVIDER [id number] 10/21/2021 15:30 EDT CR Calcaneus 2+ Views [id number] -SHRUTHI MALIK Left CPT code 62846 Reason For Exam (CR Calcaneus 2+ Views [...] Final --- Dictating Physician: MD ESTEE, CARLA Machuca Signed Date and Time: 10/21/2021 4:31 pm Signed by: MD WONG ANTHONY J Transcribed Date and Time: 10/21/2021 4:33 [facility] Carla Wong MD - 10/21/2021 Patient Name: ANDREW SIFUENTES Diagnostic Radiology ACCESSION EXAM DATE/TIME PROCEDURE ORDERING PROVIDER [id number] 10/21/2021 15:30 EDT CR Calcaneus 2+ Views [id number] -SHRUTHI MALIK Left CPT code 61384 Reason For Exam (CR Calcaneus 2+ Views [...] J Transcribed Date and Time: 10/21/2021 4:33 [facility] Work Phone: XR CALCANEUS LEFT (MIN 2 VIE WS)Ordered By: Carla Wong on 10-21-2021 [facility] Work Phone: XR Chest 1 VWon 10-21-2021 Patient Name: ANDREW SIFUENTES Diagnostic Radiology ACCESSION EXAM DATE/TIME PROCEDURE ORDERING PROVIDER [id number] 10/21/2021 08:16 EDT CR Chest 1 View Frontal [id number] CONTI CPT code 25822 Reason For Exam (CR Chest 1 View [...] OSAMA Transcribed Date and Time: 10/21/2021 8:33 [facility] RAD Venus Loyd MD - 10/21/2021 Patient Name: ANDREW SIFUENTES Diagnostic Radiology ACCESSION EXAM DATE/TIME PROCEDURE ORDERING PROVIDER [id number] 10/21/2021 08:16 EDT CR Chest 1 View Frontal [id number] CONTI CPT code 73494 Reason For Exam (CR Chest 1 View [...] RAMOS Transcribed Date and Time: 10/21/2021 8:33 [facility] Work Phone: XR Chest 1 VWOrdered By: Wyatt Loyd on 10-21-2021 [facility] Work Phone: Basophil percentageon 2021 Chloride [Moles/Vol] 108 mmol/L 98-107 [facility] Work Phone: Glucose [Mass/Vol] 93 mg/dL 74-106 [facility] Work Phone: Potassium [Moles/Vol] 3.9 mmol/L 3.5-5.1 [facility] Work Phone: [phone] Sodium [Moles/Vol] 140 mmol/L 136-145 [facility] Work Phone: WBC (Bld) [#/Vol] 8.7 10*3/uL 4.4-11.0 [facility] Work Phone: Blood erythrocytes count (nu mber/volume)on 10-20-2021 RBC (Bld) [#/Vol] 3.63 10*6/uL 4.6-6.2 [facility] Work Phone: Blood hemoglobin measurement (mass/volume)on 10-20-2021 Hemoglobin (Bld) [Mass/Vol] 10.1 g/dL 13.0-16.[address] [facility] Work Phone: Blood platelet mean volumeon 10-20-2021 Platelet mean volume (Bld) [Entitic vol] 9.8 fL 6.2-12.[address] [facility] Work Phone: Determination of erythrocyte mean corpuscular volume (MCV)on 10-20-2021 MCV (RBC) [Entitic vol] 90.1 fL 80-[address] [facility] Work Phone: Hematocrit Auto (Bld) [Volum e fraction]on 10-20-2021 Hematocrit (Bld) [Volume fraction] 32.7 % 40-[address] [facility] Work Phone: Laboratory - Chemistry and C hemistry - challengeon 10-20-2021 CO2 [Moles/Vol] 25.0 mmol/L 21.0-32.[address] [facility] Work Phone: Urea nitrogen/Creatinine [Mass ratio] 17.4 mg/mg 10-[address] [facility] Work Phone: Laboratory - Hematology and Cell countson 10-20-2021 Erythrocyte distribution width (RBC) [Entitic vol] 52.1 fL 35.1-43.[address] [facility] Work Phone: Erythrocyte distribution width (RBC) [Ratio] 15.6 % 11.6-14.[address] [facility] Work Phone: MCH (RBC) [Entitic mass] 27.8 pg 27.0-32.[address] [facility] Work Phone: MCHC Auto (RBC) [Mass/Vol]on 10-20-2021 MCHC (RBC) [Mass/Vol] 30.9 g/dL 32-36 [facility] Work Phone: No Panel Informationon 10-20 Estimated GFR (MDRD) Amer 133 mL/min >[address] [facility] Work Phone: Comment on above: GFR Calc Estimated GFR (MDRD) Non-Af Amer 110 mL/min >[address] [facility] Work Phone: Comment on above: Non- GFR Calc Platelets bldon 10-20-2021 Platelets (Bld) [#/Vol] 404 10*3/uL 150-[address] [facility] Work Phone: Serum or plasma calcium oral urement (mass/volume)on 10-20-2021 Calcium [Mass/Vol] 9.1 mg/dL 8.5-10.1 [facility] Work Phone: Serum or plasma creatinine m easurement (mass/volume)on 10-20-2021 Creatinine [Mass/Vol] 0.75 mg/dL 0.70-1.30 [facility] Work Phone: Comment on above: The validity of the calculated GFR & GFRAA in patients over 70 years has not been determined. Clinical correlation is essential. Serum or plasma urea nitroge n measurement (mass/volume)on 10-20-2021 Urea nitrogen [Mass/Vol] 13 mg/dL 7-[address] [facility] Work Phone: Thin prep Papanicolaou smear with manual screeningon 10-20-2021 Thin prep Papanicolaou smear with manual screening 7 5-[address] [facility] Work Phone: CNPNon 10-17-2021 CNPN Normal [facility] Absolute lymphocyte counton 09-19-2021 Lymphocytes Auto (Unsp spec) [#/Vol] 1.74 10*3/uL 0.83-4.[address] [facility] Work Phone: Basophil percentageon 2021 Basophils/100 WBC (Bld) 0.6 % 0-[address] [facility] Work Phone: Bilirubin [Mass/Vol] 0.30 mg/dL 0.20-1.00 [facility] Work Phone: Comment on above: For patients on eltr ombopag therapy, use of Dimension [place] TBIL is not recommended. Chloride [Moles/Vol] 105 mmol/L 98-107 [facility] Work Phone: Eosinophils/100 WBC (Bld) 3.5 % 0-[address] [facility] Work Phone: Glucose [Mass/Vol] 91 mg/dL 74-106 [facility] Work Phone: Neutrophils (Bld) [#/Vol] 4.2 10*3/uL 2.0-7.[address] [facility] Work Phone: Neutrophils/100 WBC (Bld) 62.6 % 47-[address] [facility] Work Phone: [phone] Potassium [Moles/Vol] 3.8 mmol/L 3.5-5.1 [facility] Work Phone: Protein [Mass/Vol] 6.3 g/dL 6.4-8.2 [facility] Work Phone: [phone] Sodium [Moles/Vol] 139 mmol/L 136-145 [facility] Work Phone: WBC (Bld) [#/Vol] 6.6 10*3/uL 4.4-11.0 [facility] Work Phone: Blood erythrocytes count (nu mber/volume)on 09-19-2021 RBC (Bld) [#/Vol] 3.47 10*6/uL 4.6-6.2 [facility] Work Phone: [phone] Blood hemoglobin measurement (mass/volume)on 09-19-2021 Hemoglobin (Bld) [Mass/Vol] 10.2 g/dL 13.0-16.[address] [facility] Work Phone: Blood lymphocytes/100 leukoc yteson 09-19-2021 Lymphocytes/100 WBC (Bld) 26.2 % 19-[address] [facility] Work Phone: Blood monocytes/100 leukocyt eson 09-19-2021 Monocytes/100 WBC (Bld) 6.5 % 0-[address] [facility] Work Phone: Blood platelet mean volumeon 09-19-2021 Platelet mean volume (Bld) [Entitic vol] 9.6 fL 6.2-12.[address] [facility] Work Phone: Determination of erythrocyte mean corpuscular volume (MCV)on 09-19-2021 MCV (RBC) [Entitic vol] 94.8 fL 80-[address] [facility] Work Phone: Hematocrit Auto (Bld) [Volum e fraction]on 09-19-2021 Hematocrit (Bld) [Volume fraction] 32.9 % 40-[address] [facility] Work Phone: Laboratory - Chemistry and C hemistry - challengeon 09-19-2021 ALP [Catalytic activity/Vol] 109 U/L 45-[address] [facility] Work Phone: ALT [Catalytic activity/Vol] 23 U/L 16-[address] [facility] Work Phone: CO2 [Moles/Vol] 26.0 mmol/L 21.0-32.[address] [facility] Work Phone: Globulin (S) [Mass/Vol] 3.5 g/dL 2.2-4.[address] [facility] Work Phone: Urea nitrogen/Creatinine [Mass ratio] 15.3 mg/mg 10-[address] [facility] Work Phone: Laboratory - Hematology and Cell countson 09-19-2021 Erythrocyte distribution width (RBC) [Entitic vol] 59.4 fL 35.1-43.[address] [facility] Work Phone: Erythrocyte distribution width (RBC) [Ratio] 17.1 % 11.6-14.[address] [facility] Work Phone: Immature granulocytes/100 WBC (Bld) 0.600 % 0.0-0.[address] [facility] Work Phone: Comment on above: IG% - Immature Granu locytes (promyelocytes, myelocytes and metamyelocytes) > 1% indicates that a LEFT SHIFT is Present. MCH (RBC) [Entitic mass] 29.4 pg 27.0-32.[address] [facility] Work Phone: Nucleated RBC/100 WBC (Bld) [Ratio] 0 % 0-[address] [facility] Work Phone: MCHC Auto (RBC) [Mass/Vol]on 09-19-2021 MCHC (RBC) [Mass/Vol] 31.0 g/dL 32-36 [facility] Work Phone: No Panel Informationon 09-19 Estimated GFR (MDRD) Amer 175 mL/min >[address] [facility] Work Phone: Comment on above: GFR Calc Estimated GFR (MDRD) Non-Af Amer 145 mL/min >[address] [facility] Work Phone: Comment on above: Non- GFR Calc Platelets bldon 09-19-2021 Platelets (Bld) [#/Vol] 342 10*3/uL 150-[address] [facility] Work Phone: Serum or plasma albumin oral urement (mass/volume)on 09-19-2021 Albumin [Mass/Vol] 2.8 g/dL 3.2-5.0 [facility] Work Phone: Serum or plasma albumin/glob ulin mass ratioon 09-19-2021 Albumin/Globulin [Mass ratio] 0.8 {ratio} 0.9-2.[address] [facility] Work Phone: Serum or plasma calcium oral urement (mass/volume)on 09-19-2021 Calcium [Mass/Vol] 9.0 mg/dL 8.5-10.1 [facility] Work Phone: Serum or plasma creatinine m easurement (mass/volume)on 09-19-2021 Creatinine [Mass/Vol] 0.59 mg/dL 0.70-1.30 [facility] Work Phone: Comment on above: The validity of the calculated GFR & GFRAA in patients over 70 years has not been determined. Clinical correlation is essential. Serum or plasma urea nitroge n measurement (mass/volume)on 09-19-2021 Urea nitrogen [Mass/Vol] 9 mg/dL 7-[address] [facility] Work Phone: Thin prep Papanicolaou smear with manual screeningon 09-19-2021 Thin prep Papanicolaou smear with manual screening 12 U/L 15-[address] [facility] Work Phone: Thin prep Papanicolaou smear with manual screening 8 5-[address] [facility] Work Phone: OPERATIVE NOon 08-22-2021 OPERATIVE NO Normal [facility] Basic metabolic 2000 panelon 08-19-2021 Anion gap [Moles/Vol] 10 mmol/L Normal 9-18 [facility] Comment on above: Order Comment: Speci men Type: BLOOD SPECIMENOrdering Facility: [facility] Address: [address] [place] [address] Performed By: #### 2 4321-2 ####[facility] LABORATORYCLIA [id number] [place] [address] [place] Calcium [Mass/Vol] 8.6 mg/dL Normal 8.5-10.2 [facility] Comment on above: Order Comment: Speci men Type: BLOOD SPECIMENOrdering Facility: [facility] Address: [address] [place] [address] Performed By: #### 2 4321-2 ####[facility] LABORATORYCLIA [id number] [place] [address] [place] Chloride [Moles/Vol] 99 mmol/L Normal 97-105 [facility] Comment on above: Order Comment: Speci men Type: BLOOD SPECIMENOrdering Facility: [facility] Address: [address] [place] [address] Performed By: #### 2 4321-2 ####[facility] LABORATORYCLIA [id number] [place] [address] [place] CO2 [Moles/Vol] 29 mmol/L Normal 22-30 [facility] Comment on above: Order Comment: Speci men Type: BLOOD SPECIMENOrdering Facility: [facility] Address: [address] [place] [address] Performed By: #### 2 4321-2 ####[facility] LABORATORYCLIA [id number] [place] [address] [place] Creatinine [Mass/Vol] 0.58 mg/dL Low 0.73-1.22 [facility] Comment on above: Order Comment: Speci men Type: BLOOD SPECIMENOrdering Facility: [facility] Address: [address] [place] [address] Performed By: #### 2 4321-2 ####[facility] CENTERIA [id number] [place] [address] [place] ESTIMATED GLOMERULAR FILTRATION RATE 106 mL/min/1.73m??? Normal >=60 [facility] Comment on above: Order Comment: Shira feldman Type: BLOOD SPECIMENOrdering Facility: [facility] Address: [address] [place] [address] Result Comment: Luzmaria mated Glomerular Filtration Rate [...] actual GFR. Performed By: #### 2 4321-2 ####[facility] CENTERIA [id number] [place] [address] [place] Glucose [Mass/Vol] 101 mg/dL High 74-99 [facility] Comment on above: Order Comment: Shira feldman Type: BLOOD SPECIMENOrdering Facility: [facility] Address: [address] [place] [address] Result Comment: The [place] [employer] (ADA) provides guidance for cutoff [...] Standards of Medical Care in Diabetes 2016, [place] [employer]. Diabetes Care. 2016.39(Suppl 1). Performed By: #### 2 4321-2 ####[facility] LABORATORYCLIA [id number] [place] [address] [place] Potassium [Moles/Vol] 3.5 mmol/L Low 3.7-5.1 [facility] Comment on above: Order Comment: Speci men Type: BLOOD SPECIMENOrdering Facility: [facility] Address: [address] [place] [address] Performed By: #### 2 4321-2 ####[facility] LABORATORYCLIA [id number] [address] STATES OF [facility] Sodium [Moles/Vol] 138 mmol/L Normal 136-144 [facility] Comment on above: Order Comment: Speci men Type: BLOOD SPECIMENOrdering Facility: [facility] Address: [address] [place] [address] Performed By: #### 2 4321-2 ####[facility] LABORATORYCLIA [id number] [place] [address] [place] Urea nitrogen [Mass/Vol] 11 mg/dL Normal 9-24 [facility] Comment on above: Order Comment: Speci men Type: BLOOD SPECIMENOrdering Facility: [facility] Address: [address] [place] [address] Performed By: #### 2 4321-2 ####[facility] LABORATORYCLIA [id number] [address] [place] CASE MANAGEMon 08-19-2021 CASE MANAGEM Normal [facility] CBC W Auto Differential pane l (Bld)on 08-19-2021 Basophils (Bld) [#/Vol] 0.03 10*3/uL Normal <0.11 [facility] Comment on above: Order Comment: Speci men Type: BLOOD SPECIMENOrdering Facility: [facility] Address: [address] [place] [address] Performed By: #### 5 7021-8 ####[facility] LABORATORYCLIA [id number] [address] STATES [facility] Basophils/100 WBC (Bld) 0.4 % Normal [facility] Comment on above: Order Comment: Speci men Type: BLOOD SPECIMENOrdering Facility: [facility] Address: [address] [place] [address] Performed By: #### 5 7021-8 ####[facility] LABORATORYCLIA [id number] [address] Differential cell count method Nom (Bld) Auto Normal [facility] Comment on above: Order Comment: Speci men Type: BLOOD SPECIMENOrdering Facility: [facility] Address: [address] [place] [address] Performed By: #### 5 7021-8 ####[facility]ORATORYCLIA [id number] [address] [place] Eosinophils (Bld) [#/Vol] 0.24 10*3/uL Normal <0.46 [facility] Comment on above: Order Comment: Speci men Type: BLOOD SPECIMENOrdering Facility: [facility] Address: [address] [place] [address] Performed By: #### 5 7021-8 ####[facility] LABORATORYCLIA [id number] [address] Eosinophils/100 WBC (Bld) 3.1 % Normal [facility] Comment on above: Order Comment: Speci men Type: BLOOD SPECIMENOrdering Facility: [facility] Address: [address] [place] [address] Performed By: #### 5 7021-8 ####[facility] LABORATORYCLIA [id number] [address] [place] Erythrocyte distribution width (RBC) [Ratio] 17.5 % High 11.5-15.0 [facility] Comment on above: Order Comment: Speci men Type: BLOOD SPECIMENOrdering Facility: [facility] Address: [address] [place] [address] Performed By: #### 5 7021-8 ####[facility] LABORATORYCLIA [id number] [address] Hematocrit (Bld) [Volume fraction] 30.2 % Low 39.0-51.0 [facility] Comment on above: Order Comment: Speci men Type: BLOOD SPECIMENOrdering Facility: [facility] Address: [address] [address] Performed By: #### 5 7021-8 ####[facility]ORATORYCLIA [id number] [address] [place] Hemoglobin (Bld) [Mass/Vol] 9.6 g/dL Low 13.0-17.0 [facility] Comment on above: Order Comment: Speci men Type: BLOOD SPECIMENOrdering Facility: [facility] Address: [address] [place] [address] Performed By: #### 5 7021-8 ####[facility] LABORATORYCLIA [id number] [address] IMMATURE GRAN % 0.4 % Normal [facility] Comment on above: Order Comment: Speci men Type: BLOOD SPECIMENOrdering Facility: [facility] Address: [address] [place] [address] Performed By: #### 5 7021-8 ####[facility]ORATORYCLIA [id number] [address] IMMATURE GRAN ABS 0.03 k/uL Normal <0.10 [facility] Comment on above: Order Comment: Speci men Type: BLOOD SPECIMENOrdering Facility: [facility] Address: [address] [place] [address] Performed By: #### 5 7021-8 ####[facility] LABORATORYCLIA [id number] [address] [place] Lymphocytes (Bld) [#/Vol] 1.71 10*3/uL Normal 1.00-4.00 [facility] Comment on above: Order Comment: Speci men Type: BLOOD SPECIMENOrdering Facility: [facility] Address: [address] [place] [address] Performed By: #### 5 7021-8 ####[facility]ORATORYCLIA [id number] [address] [place] Lymphocytes/100 WBC (Bld) 22.2 % Normal [facility] Comment on above: Order Comment: Speci men Type: BLOOD SPECIMENOrdering Facility: [facility] Address: [address] [place] [address] Performed By: #### 5 7021-8 ####[facility]ORATORYCLIA [id number] [address] MCH (RBC) [Entitic mass] 29.4 pg Normal 26.0-34.0 [facility] Comment on above: Order Comment: Speci men Type: BLOOD SPECIMENOrdering Facility: [facility] Address: [address] [place] [address] Performed By: #### 5 7021-8 ####[facility]ORATORYCLIA [id number] [address] MCHC (RBC) [Mass/Vol] 31.8 g/dL Normal 30.5-36.0 [facility] Comment on above: Order Comment: Speci men Type: BLOOD SPECIMENOrdering Facility: [facility] Address: [address] [place] [address] Performed By: #### 5 7021-8 ####[facility]ORATORYCLIA [id number] [address] MCV (RBC) [Entitic vol] 92.6 fL Normal 80.0-100.0 [facility] Comment on above: Order Comment: Speci men Type: BLOOD SPECIMENOrdering Facility: [facility] Address: [address] [place] [address] Performed By: #### 5 7021-8 ####[facility]ORATORYCLIA [id number] [address] Monocytes (Bld) [#/Vol] 0.50 10*3/uL Normal <0.87 [facility] Comment on above: Order Comment: Speci men Type: BLOOD SPECIMENOrdering Facility: [facility] Address: [address] [place] [address] Performed By: #### 5 7021-8 ####[facility] LABORATORYCLIA [id number] [address] [place] Monocytes/100 WBC (Bld) 6.5 % Normal [facility] Comment on above: Order Comment: Speci men Type: BLOOD SPECIMENOrdering Facility: [facility] Address: [address] [place] [address] Performed By: #### 5 7021-8 ####[facility] LABORATORYCLIA [id number] [place] [address] [place] Neutrophils (Bld) [#/Vol] 5.20 10*3/uL Normal 1.45-7.50 [facility] Comment on above: Order Comment: Speci men Type: BLOOD SPECIMENOrdering Facility: [facility] Address: [address] [place] [address] Performed By: #### 5 7021-8 ####[facility]ORATORYCLIA [id number] [address] [place] Neutrophils/100 WBC (Bld) 67.4 % Normal [facility] Comment on above: Order Comment: Speci men Type: BLOOD SPECIMENOrdering Facility: [facility] Address: [address] [place] [address] Performed By: #### 5 7021-8 ####[facility]ATORYCLIA [id number] [place] [address] [place] Nucleated RBC (Bld) [#/Vol] 10*3/uL Normal <0.01 [facility] Comment on above: Order Comment: Speci men Type: BLOOD SPECIMENOrdering Facility: [facility] Address: [address] [place] [address] Performed By: #### 5 7021-8 ####[facility]ATORYCLIA [id number] [address] [place] Nucleated RBC/100 WBC (Bld) [Ratio] 0.0 /100 WBC Normal [facility] Comment on above: Order Comment: Speci men Type: BLOOD SPECIMENOrdering Facility: [facility] Address: [address] [place] [address] Performed By: #### 5 7021-8 ####[facility]ATORYCLIA [id number] [address] [place] Platelet mean volume (Bld) [Entitic vol] 8.9 fL Low 9.0-12.7 [facility] Comment on above: Order Comment: Speci men Type: BLOOD SPECIMENOrdering Facility: [facility] Address: [address] [place] [address] Performed By: #### 5 7021-8 ####[facility]ATORYCLIA [id number] [address] [place] Platelets (Bld) [#/Vol] 408 10*3/uL High 150-400 [facility] Comment on above: Order Comment: Speci men Type: BLOOD SPECIMENOrdering Facility: [facility] Address: [address] [place] [address] Performed By: #### 5 7021-8 ####[facility]ATORYCLIA [id number] [address] [place] RBC (Bld) [#/Vol] 3.26 10*6/uL Low 4.20-6.00 [facility] Comment on above: Order Comment: Speci men Type: BLOOD SPECIMENOrdering Facility: [facility] Address: [address] [place] [address] Performed By: #### 5 7021-8 ####[facility]ATORYCLIA [id number] [address] [place] WBC (Bld) [#/Vol] 7.71 10*3/uL Normal 3.70-11.00 [facility] Comment on above: Order Comment: Speci men Type: BLOOD SPECIMENOrdering Facility: [facility] Address: [address] [place], [place] [address] Performed By: #### 5 7021-8 ####[facility]ATORYCLIA [id number] [address] [place] CNDSon 08-19-2021 CNDS Normal [facility] CONSULT PROGon 08-19-2021 CONSULT PROG Normal [facility] THERAPY NTon 08-19-2021 THERAPY NT Normal [facility] Basic metabolic 2000 panelon 08-18-2021 Anion gap [Moles/Vol] 11 mmol/L Normal 9-18 [facility] Comment on above: Order Comment: Speci men Type: BLOOD SPECIMENOrdering Facility: [facility] Address: [address] [place] [address] Performed By: #### 2 4321-2 ####[facility]ATORYCLIA [id number] [place] [address] [place] Calcium [Mass/Vol] 8.6 mg/dL Normal 8.5-10.2 [facility] Comment on above: Order Comment: Speci men Type: BLOOD SPECIMENOrdering Facility: [facility] Address: [address] [place] [address] Performed By: #### 2 4321-2 ####[facility]ATORYCLIA [id number] [place] [address] [place] Chloride [Moles/Vol] 98 mmol/L Normal 97-105 [facility] Comment on above: Order Comment: Speci men Type: BLOOD SPECIMENOrdering Facility: [facility] Address: [address] [place] [address] Performed By: #### 2 4321-2 ####[facility]ATORYCLIA [id number] [place] [address] [place] CO2 [Moles/Vol] 28 mmol/L Normal 22-30 [facility] Comment on above: Order Comment: Speci men Type: BLOOD SPECIMENOrdering Facility: [facility] Address: [address] [place] [address] Performed By: #### 2 4321-2 ####[facility]ATORYCLIA [id number] [place] [address] [place] Creatinine [Mass/Vol] 0.56 mg/dL Low 0.73-1.22 [facility] Comment on above: Order Comment: Speci men Type: BLOOD SPECIMENOrdering Facility: [facility] Address: [address] [place] [address] Performed By: #### 2 4321-2 ####[facility] CENTERIA [id number] [address] ESTIMATED GLOMERULAR FILTRATION RATE 107 mL/min/1.73m??? Normal >=60 [facility] Comment on above: Order Comment: Shira feldman Type: BLOOD SPECIMENOrdering Facility: [facility] Address: [address] [place] [address] Result Comment: Luzmaria mated Glomerular Filtration Rate [...] actual GFR. Performed By: #### 2 4321-2 ####[facility] CENTERIA [id number] [address] [place] Glucose [Mass/Vol] 113 mg/dL High 74-99 [facility] Comment on above: Order Comment: Shira feldman Type: BLOOD SPECIMENOrdering Facility: [facility] Address: [address] [place] [address] Result Comment: The [place] [employer] (ADA) provides guidance for cutoff [...] Standards of Medical Care in Diabetes 2016, [place] [employer]. Diabetes Care. 2016.39(Suppl 1). Performed By: #### 2 4321-2 ####[facility]ATORYCLIA [id number] [place] [address] [place] Potassium [Moles/Vol] 3.5 mmol/L Low 3.7-5.1 [facility] Comment on above: Order Comment: Speci men Type: BLOOD SPECIMENOrdering Facility: [facility] Address: [address] [place] [address] Performed By: #### 2 4321-2 ####[facility]ATORYCLIA [id number] [place] [address] [place] Sodium [Moles/Vol] 137 mmol/L Normal 136-144 [facility] Comment on above: Order Comment: Speci men Type: BLOOD SPECIMENOrdering Facility: [facility] Address: [address] [place] [address] Performed By: #### 2 4321-2 ####[facility]ATORYCLIA [id number] [place] [address] [place] Urea nitrogen [Mass/Vol] 10 mg/dL Normal 9-24 [facility] Comment on above: Order Comment: Speci men Type: BLOOD SPECIMENOrdering Facility: [facility] Address: [address] [place] [address] Performed By: #### 2 4321-2 ####[facility]ATORYCLIA [id number] [place] [address] [place] CBC W Auto Differential pane l (Bld)on 08-18-2021 Basophils (Bld) [#/Vol] 10*3/uL Normal <0.11 [facility] Comment on above: Order Comment: Speci men Type: BLOOD SPECIMENOrdering Facility: [facility] Address: [address] [place] [address] Performed By: #### 5 7021-8 ####[facility]ORATORYCLIA [id number] [address] [place] Basophils/100 WBC (Bld) 0.3 % Normal [facility] Comment on above: Order Comment: Speci men Type: BLOOD SPECIMENOrdering Facility: [facility] Address: [address] [place] [address] Performed By: #### 5 7021-8 ####[facility]ORATORYCLIA [id number] [address] Differential cell count method Nom (Bld) Auto Normal [facility] Comment on above: Order Comment: Speci men Type: BLOOD SPECIMENOrdering Facility: [facility] Address: [address] [place] [address] Performed By: #### 5 7021-8 ####[facility]ATORYCLIA [id number] [address] [place] Eosinophils (Bld) [#/Vol] 0.37 10*3/uL Normal <0.46 [facility] Comment on above: Order Comment: Speci men Type: BLOOD SPECIMENOrdering Facility: [facility] Address: [address] [place] [address] Performed By: #### 5 7021-8 ####[facility]ATORYCLIA [id number] [address] Eosinophils/100 WBC (Bld) 4.8 % Normal [facility] Comment on above: Order Comment: Speci men Type: BLOOD SPECIMENOrdering Facility: [facility] Address: [address] [place] [address] Performed By: #### 5 7021-8 ####[facility]ATORYCLIA [id number] [address] [place] Erythrocyte distribution width (RBC) [Ratio] 17.5 % High 11.5-15.0 [facility] Comment on above: Order Comment: Speci men Type: BLOOD SPECIMENOrdering Facility: [facility] Address: [address] [place] [address] Performed By: #### 5 7021-8 ####[facility]ATORYCLIA [id number] [address] [place] Hematocrit (Bld) [Volume fraction] 30.2 % Low 39.0-51.0 [facility] Comment on above: Order Comment: Speci men Type: BLOOD SPECIMENOrdering Facility: [facility] Address: [address] [place] [address] Performed By: #### 5 7021-8 ####[facility]ATORYCLIA [id number] [address] [place] Hemoglobin (Bld) [Mass/Vol] 9.5 g/dL Low 13.0-17.0 [facility] Comment on above: Order Comment: Speci men Type: BLOOD SPECIMENOrdering Facility: [facility] Address: [address] [place] [address] Performed By: #### 5 7021-8 ####[facility]ATORYCLIA [id number] [address] IMMATURE GRAN % 0.4 % Normal [facility] Comment on above: Order Comment: Speci men Type: BLOOD SPECIMENOrdering Facility: [facility] Address: [address] [place] [address] Performed By: #### 5 7021-8 ####[facility]ATORYCLIA [id number] [address] IMMATURE GRAN ABS 0.03 k/uL Normal <0.10 [facility] Comment on above: Order Comment: Speci men Type: BLOOD SPECIMENOrdering Facility: [facility] Address: [address] [place] [address] Performed By: #### 5 7021-8 ####[facility]ATORYCLIA [id number] [address] [place] Lymphocytes (Bld) [#/Vol] 1.85 10*3/uL Normal 1.00-4.00 [facility] Comment on above: Order Comment: Speci men Type: BLOOD SPECIMENOrdering Facility: [facility] Address: [address] [place] [address] Performed By: #### 5 7021-8 ####[facility]ORATORYCLIA [id number] [place] [address] [place] Lymphocytes/100 WBC (Bld) 23.8 % Normal [facility] Comment on above: Order Comment: Speci men Type: BLOOD SPECIMENOrdering Facility: [facility] Address: [address] [place] [address] Performed By: #### 5 7021-8 ####[facility]ATORYCLIA [id number] [address] [place] [facility] MCH (RBC) [Entitic mass] 29.5 pg Normal 26.0-34.0 [facility] Comment on above: Order Comment: Speci men Type: BLOOD SPECIMENOrdering Facility: [facility] Address: [address] [place] [address] Performed By: #### 5 7021-8 ####[facility]ATORYCLIA [id number] [address] [place] MCHC (RBC) [Mass/Vol] 31.5 g/dL Normal 30.5-36.0 [facility] Comment on above: Order Comment: Speci men Type: BLOOD SPECIMENOrdering Facility: [facility] Address: [address] [place] [address] Performed By: #### 5 7021-8 ####[facility]ATORYCLIA [id number] [address] MCV (RBC) [Entitic vol] 93.8 fL Normal 80.0-100.0 [facility] Comment on above: Order Comment: Speci men Type: BLOOD SPECIMENOrdering Facility: [facility] Address: [address] [place] [address] Performed By: #### 5 7021-8 ####[facility]ATORYCLIA [id number] [address] Monocytes (Bld) [#/Vol] 0.49 10*3/uL Normal <0.87 [facility] Comment on above: Order Comment: Speci men Type: BLOOD SPECIMENOrdering Facility: [facility] Address: [address] [place] [address] Performed By: #### 5 7021-8 ####[facility]ORATORYCLIA [id number] [address] [place] Monocytes/100 WBC (Bld) 6.3 % Normal [facility] Comment on above: Order Comment: Speci men Type: BLOOD SPECIMENOrdering Facility: [facility] Address: [address] [place] [address] Performed By: #### 5 7021-8 ####[facility]ATORYCLIA [id number] [address] [place] Neutrophils (Bld) [#/Vol] 5.00 10*3/uL Normal 1.45-7.50 [facility] Comment on above: Order Comment: Speci men Type: BLOOD SPECIMENOrdering Facility: [facility] Address: [address] [place] [address] Performed By: #### 5 7021-8 ####[facility]ATORYCLIA [id number] [address] Neutrophils/100 WBC (Bld) 64.4 % Normal [facility] Comment on above: Order Comment: Speci men Type: BLOOD SPECIMENOrdering Facility: [facility] Address: [address] [place] [address] Performed By: #### 5 7021-8 ####[facility]ATORYCLIA [id number] [address] [place] Nucleated RBC (Bld) [#/Vol] 10*3/uL Normal <0.01 [facility] Comment on above: Order Comment: Speci men Type: BLOOD SPECIMENOrdering Facility: [facility] Address: [address] [place] [address] Performed By: #### 5 7021-8 ####[facility]ATORYCLIA [id number] [address] Nucleated RBC/100 WBC (Bld) [Ratio] 0.0 /100 WBC Normal [facility] Comment on above: Order Comment: Speci men Type: BLOOD SPECIMENOrdering Facility: [facility] Address: [address] [place], [place] [address] Performed By: #### 5 7021-8 ####[facility]ATORYCLIA [id number] [address] [place] Platelet mean volume (Bld) [Entitic vol] 9.1 fL Normal 9.0-12.7 [facility] Comment on above: Order Comment: Speci men Type: BLOOD SPECIMENOrdering Facility: [facility] Address: [address] [place] [address] Performed By: #### 5 7021-8 ####[facility]ATORYCLIA [id number] [address] [place] Platelets (Bld) [#/Vol] 391 10*3/uL Normal 150-400 [facility] Comment on above: Order Comment: Speci men Type: BLOOD SPECIMENOrdering Facility: [facility] Address: [address] [place] [address] Performed By: #### 5 7021-8 ####[facility]ATORYCLIA [id number] [place] [address] [place] RBC (Bld) [#/Vol] 3.22 10*6/uL Low 4.20-6.00 [facility] Comment on above: Order Comment: Speci men Type: BLOOD SPECIMENOrdering Facility: [facility] Address: [address] [place], [place] [address] Performed By: #### 5 7021-8 ####[facility]ATORYCLIA [id number] [place] [address] [place] WBC (Bld) [#/Vol] 7.76 10*3/uL Normal 3.70-11.00 [facility] Comment on above: Order Comment: Speci men Type: BLOOD SPECIMENOrdering Facility: [facility] Address: [address] [place], [place] [address] Performed By: #### 5 7021-8 ####[facility]ATORYCLIA [id number] [address] [place] CONSULT PROGon 08-18-2021 CONSULT PROG Normal [facility] CASE MANAGEMon 08-17-2021 CASE MANAGEM Normal [facility] CBC W Auto Differential pane l (Bld)on 08-17-2021 Basophils (Bld) [#/Vol] 0.04 10*3/uL Normal <0.11 [facility] Comment on above: Order Comment: Speci men Type: BLOOD SPECIMENOrdering Facility: [facility] Address: [address] [place] [address] Performed By: #### 5 7021-8 ####[facility]ATORYCLIA [id number] [address] [place] Basophils/100 WBC (Bld) 0.5 % Normal [facility] Comment on above: Order Comment: Speci men Type: BLOOD SPECIMENOrdering Facility: [facility] Address: [address] [place] [address] Performed By: #### 5 7021-8 ####[facility]ATORYCLIA [id number] [address] [place] Differential cell count method Nom (Bld) Auto Normal [facility] Comment on above: Order Comment: Speci men Type: BLOOD SPECIMENOrdering Facility: [facility] Address: [address] [place] [address] Performed By: #### 5 7021-8 ####[facility]ATORYCLIA [id number] [place] [address] [place] Eosinophils (Bld) [#/Vol] 0.31 10*3/uL Normal <0.46 [facility] Comment on above: Order Comment: Speci men Type: BLOOD SPECIMENOrdering Facility: [facility] Address: [address] [place] [address] Performed By: #### 5 7021-8 ####[facility]ATORYCLIA [id number] [address] [place] Eosinophils/100 WBC (Bld) 3.7 % Normal [facility] Comment on above: Order Comment: Speci men Type: BLOOD SPECIMENOrdering Facility: [facility] Address: [address] [place] [address] Performed By: #### 5 7021-8 ####[facility]ATORYCLIA [id number] [address] [place] Erythrocyte distribution width (RBC) [Ratio] 17.4 % High 11.5-15.0 [facility] Comment on above: Order Comment: Speci men Type: BLOOD SPECIMENOrdering Facility: [facility] Address: [address] [place] [address] Performed By: #### 5 7021-8 ####[facility]ATORYCLIA [id number] [address] Hematocrit (Bld) [Volume fraction] 30.6 % Low 39.0-51.0 [facility] Comment on above: Order Comment: Speci men Type: BLOOD SPECIMENOrdering Facility: [facility] Address: [address] [place] [address] Performed By: #### 5 7021-8 ####[facility]ATORYCLIA [id number] [address] [place] Hemoglobin (Bld) [Mass/Vol] 9.6 g/dL Low 13.0-17.0 [facility] Comment on above: Order Comment: Speci men Type: BLOOD SPECIMENOrdering Facility: [facility] Address: [address] [place] [address] Performed By: #### 5 7021-8 ####[facility]ATORYCLIA [id number] [address] IMMATURE GRAN % 0.2 % Normal [facility] Comment on above: Order Comment: Speci men Type: BLOOD SPECIMENOrdering Facility: [facility] Address: [address] [place] [address] Performed By: #### 5 7021-8 ####[facility]ATORYCLIA [id number] [address] [place] IMMATURE GRAN ABS <0.03 Normal <0.10 [facility] Comment on above: Order Comment: Speci men Type: BLOOD SPECIMENOrdering Facility: [facility] Address: [address] [place] [address] Performed By: #### 5 7021-8 ####[facility]ATORYCLIA [id number] [address] Lymphocytes (Bld) [#/Vol] 1.66 10*3/uL Normal 1.00-4.00 [facility] Comment on above: Order Comment: Speci men Type: BLOOD SPECIMENOrdering Facility: [facility] Address: [address] [place] [address] Performed By: #### 5 7021-8 ####[facility]ATORYCLIA [id number] [address] Lymphocytes/100 WBC (Bld) 19.9 % Normal [facility] Comment on above: Order Comment: Speci men Type: BLOOD SPECIMENOrdering Facility: [facility] Address: [address] [place] [address] Performed By: #### 5 7021-8 ####[facility]ATORYCLIA [id number] [address] MCH (RBC) [Entitic mass] 28.9 pg Normal 26.0-34.0 [facility] Comment on above: Order Comment: Speci men Type: BLOOD SPECIMENOrdering Facility: [facility] Address: [address] [place] [address] Performed By: #### 5 7021-8 ####[facility]ATORYCLIA [id number] [address] MCHC (RBC) [Mass/Vol] 31.4 g/dL Normal 30.5-36.0 [facility] Comment on above: Order Comment: Speci men Type: BLOOD SPECIMENOrdering Facility: [facility] Address: [address] [place] [address] Performed By: #### 5 7021-8 ####[facility]ATORYCLIA [id number] [place] [address] [place] MCV (RBC) [Entitic vol] 92.2 fL Normal 80.0-100.0 [facility] Comment on above: Order Comment: Speci men Type: BLOOD SPECIMENOrdering Facility: [facility] Address: [address] [place] [address] Performed By: #### 5 7021-8 ####[facility]ATORYCLIA [id number] [address] [place] Monocytes (Bld) [#/Vol] 0.52 10*3/uL Normal <0.87 [facility] Comment on above: Order Comment: Speci men Type: BLOOD SPECIMENOrdering Facility: [facility] Address: [address] [place] [address] Performed By: #### 5 7021-8 ####[facility]ATORYCLIA [id number] [address] Monocytes/100 WBC (Bld) 6.2 % Normal [facility] Comment on above: Order Comment: Speci men Type: BLOOD SPECIMENOrdering Facility: [facility] Address: [address] [place] [address] Performed By: #### 5 7021-8 ####[facility]ATORYCLIA [id number] [address] [place] Neutrophils (Bld) [#/Vol] 5.78 10*3/uL Normal 1.45-7.50 [facility] Comment on above: Order Comment: Speci men Type: BLOOD SPECIMENOrdering Facility: [facility] Address: [address] [place] [address] Performed By: #### 5 7021-8 ####[facility]ATORYCLIA [id number] [address] [place] Neutrophils/100 WBC (Bld) 69.5 % Normal [facility] Comment on above: Order Comment: Speci men Type: BLOOD SPECIMENOrdering Facility: [facility] Address: [address] Performed By: #### 5 7021-8 ####[facility]ATORYCLIA [id number] [address] Nucleated RBC (Bld) [#/Vol] 10*3/uL Normal <0.01 [facility] Comment on above: Order Comment: Speci men Type: BLOOD SPECIMENOrdering Facility: [facility] Address: [address] [place] [address] Performed By: #### 5 7021-8 ####[facility]ATORYCLIA [id number] [address] Nucleated RBC/100 WBC (Bld) [Ratio] 0.0 /100 WBC Normal [facility] Comment on above: Order Comment: Speci men Type: BLOOD SPECIMENOrdering Facility: [facility] Address: [address] [place] [address] Performed By: #### 5 7021-8 ####[facility]ATORYCLIA [id number] [address] [place] Platelet mean volume (Bld) [Entitic vol] 9.2 fL Normal 9.0-12.7 [facility] Comment on above: Order Comment: Speci men Type: BLOOD SPECIMENOrdering Facility: [facility] Address: [address] [place] [address] Performed By: #### 5 7021-8 ####[facility]ATORYCLIA [id number] [address] [place] Platelets (Bld) [#/Vol] 379 10*3/uL Normal 150-400 [facility] Comment on above: Order Comment: Speci men Type: BLOOD SPECIMENOrdering Facility: [facility] Address: [address] [place] [address] Performed By: #### 5 7021-8 ####[facility]ORATORYCLIA [id number] [place] [address] [place] RBC (Bld) [#/Vol] 3.32 10*6/uL Low 4.20-6.00 [facility] Comment on above: Order Comment: Speci men Type: BLOOD SPECIMENOrdering Facility: [facility] Address: [address] [place] [address] Performed By: #### 5 7021-8 ####[facility]ORATORYCLIA [id number] [place] [address] [place] WBC (Bld) [#/Vol] 8.33 10*3/uL Normal 3.70-11.00 [facility] Comment on above: Order Comment: Speci men Type: BLOOD SPECIMENOrdering Facility: [facility] Address: [address] [place] [address] Performed By: #### 5 7021-8 ####[facility]ATORYCLIA [id number] [address] [facility] CONSULT PROGon 08-17-2021 CONSULT PROG Normal [facility] NUTRITIONon 08-17-2021 NUTRITION Normal [facility] Basic metabolic 2000 panelon 08-16-2021 Anion gap [Moles/Vol] 14 mmol/L Normal 9-18 [facility] Comment on above: Order Comment: Speci men Type: BLOOD SPECIMENOrdering Facility: [facility] Address: [address] [place] [address] Performed By: #### 2 4321-2, 01668-9 ####[facility]ORATORYCLIA [id number] [place] [address] [place] Calcium [Mass/Vol] 8.8 mg/dL Normal 8.5-10.2 [facility] Comment on above: Order Comment: Speci men Type: BLOOD SPECIMENOrdering Facility: [facility] Address: [address] [place] [address] Performed By: #### 2 4321-2, ####[facility]ORATORYCLIA [id number] [address] [place] Chloride [Moles/Vol] 97 mmol/L Normal 97-105 [facility] Comment on above: Order Comment: Speci men Type: BLOOD SPECIMENOrdering Facility: [facility] Address: [address] [place] [address] Performed By: #### 2 4320-06, ####[facility]ATORYCLIA [id number] [address] CO2 [Moles/Vol] 27 mmol/L Normal 22-30 [facility] Comment on above: Order Comment: Speci men Type: BLOOD SPECIMENOrdering Facility: [facility] Address: [address] [place] [address] Performed By: #### 2 4320-06, ####[facility]CL[facility] [id number] [address] OF [facility] Creatinine [Mass/Vol] 0.50 mg/dL Low 0.73-1.22 [facility] Comment on above: Order Comment: Speci men Type: BLOOD SPECIMENOrdering Facility: [facility] Address: [address] [place] [address] Performed By: #### 2 4320-06, ####[facility]ATORYCLIA [id number] [address] ESTIMATED GLOMERULAR FILTRATION RATE 110 mL/min/1.73m??? Normal >=60 [facility] Comment on above: Order Comment: Speci men Type: BLOOD SPECIMENOrdering Facility: [facility] Address: [address] [place] [address] Result Comment: Luzmaria mated Glomerular Filtration Rate [...] actual GFR. Performed By: #### 2 43205-08, ####[facility]ORATORYCLIA [id number] [place] [address] [place] Glucose [Mass/Vol] 101 mg/dL High 74-99 [facility] Comment on above: Order Comment: Speci men Type: BLOOD SPECIMENOrdering Facility: [facility] Address: [address] [place] [address] Result Comment: The [place] [employer] (ADA) provides guidance for cutoff [...] Standards of Medical Care in Diabetes 2016, [place] [employer]. Diabetes Care. 2016.39(Suppl 1). Performed By: #### 2 43205-08, ####[facility]ATORYCLIA [id number] [place] [address] [place] Potassium [Moles/Vol] 3.6 mmol/L Low 3.7-5.1 [facility] Comment on above: Order Comment: Shira feldman Type: BLOOD SPECIMENOrdering Facility: [facility] Address: [address] [place] [address] Performed By: #### 2 ####[facility]ORATORYCLIA [id number] [place] [address] [place] Sodium [Moles/Vol] 138 mmol/L Normal 136-144 [facility] Comment on above: Order Comment: Speci men Type: BLOOD SPECIMENOrdering Facility: [facility] Address: [address] [place] [address] Performed By: #### 2 ####[facility]ORATORYCLIA [id number] [place] [address] [place] Urea nitrogen [Mass/Vol] 11 mg/dL Normal 9-24 [facility] Comment on above: Order Comment: Speci men Type: BLOOD SPECIMENOrdering Facility: [facility] Address: [address] [place] [address] Performed By: #### 2 4321-2, 87602-0 ####[facility]ORATORYCLIA [id number] [address] [place] CASE MANAGEMon 08-16-2021 CASE MANAGEM Normal [facility] CBC W Auto Differential pane l (Bld)on 08-16-2021 Basophils (Bld) [#/Vol] 0.03 10*3/uL Normal <0.11 [facility] Comment on above: Order Comment: Speci men Type: BLOOD SPECIMENOrdering Facility: [facility] Address: [address] [place] [address] Performed By: #### 5 7021-8 ####[facility]ATORYCLIA [id number] [place] [address] [place] Basophils/100 WBC (Bld) 0.4 % Normal [facility] Comment on above: Order Comment: Speci men Type: BLOOD SPECIMENOrdering Facility: [facility] Address: [address] [place] [address] Performed By: #### 5 7021-8 ####[facility]ORATORYCLIA [id number] [place] [address] [place] Differential cell count method Nom (Bld) Auto Normal [facility] Comment on above: Order Comment: Speci men Type: BLOOD SPECIMENOrdering Facility: [facility] Address: [address] [place] [address] Performed By: #### 5 7021-8 ####[facility]ORATORYCLIA [id number] [place] [address] [place] Eosinophils (Bld) [#/Vol] 0.19 10*3/uL Normal <0.46 [facility] Comment on above: Order Comment: Speci men Type: BLOOD SPECIMENOrdering Facility: [facility] Address: [address] [place] [address] Performed By: #### 5 7021-8 ####[facility]ORATORYCLIA [id number] [address] [place] [facility] Eosinophils/100 WBC (Bld) 2.5 % Normal [facility] Comment on above: Order Comment: Speci men Type: BLOOD SPECIMENOrdering Facility: [facility] Address: [address] [place] [address] Performed By: #### 5 7021-8 ####[facility]ATORYCLIA [id number] [address] [place] Erythrocyte distribution width (RBC) [Ratio] 17.1 % High 11.5-15.0 [facility] Comment on above: Order Comment: Speci men Type: BLOOD SPECIMENOrdering Facility: [facility] Address: [address] [place] [address] Performed By: #### 5 7021-8 ####[facility]ORATORYCLIA [id number] [address] Hematocrit (Bld) [Volume fraction] 29.2 % Low 39.0-51.0 [facility] Comment on above: Order Comment: Speci men Type: BLOOD SPECIMENOrdering Facility: [facility] Address: [address] [place] [address] Performed By: #### 5 7021-8 ####[facility]ATORYCLIA [id number] [address] [place] Hemoglobin (Bld) [Mass/Vol] 9.0 g/dL Low 13.0-17.0 [facility] Comment on above: Order Comment: Speci men Type: BLOOD SPECIMENOrdering Facility: [facility] Address: [address] [place] [address] Performed By: #### 5 7021-8 ####[facility]ATORYCLIA [id number] [address] [place] IMMATURE GRAN % 0.3 % Normal [facility] Comment on above: Order Comment: Speci men Type: BLOOD SPECIMENOrdering Facility: [facility] Address: [address] [place] [address] Performed By: #### 5 7021-8 ####[facility]ATORYCLIA [id number] [address] IMMATURE GRAN ABS <0.03 Normal <0.10 [facility] Comment on above: Order Comment: Speci men Type: BLOOD SPECIMENOrdering Facility: [facility] Address: [address] [place] [address] Performed By: #### 5 7021-8 ####[facility]ATORYCLIA [id number] [address] Lymphocytes (Bld) [#/Vol] 1.41 10*3/uL Normal 1.00-4.00 [facility] Comment on above: Order Comment: Speci men Type: BLOOD SPECIMENOrdering Facility: [facility] Address: [address] [place] [address] Performed By: #### 5 7021-8 ####[facility]ATORYCLIA [id number] [address] Lymphocytes/100 WBC (Bld) 18.4 % Normal [facility] Comment on above: Order Comment: Speci men Type: BLOOD SPECIMENOrdering Facility: [facility] Address: [address] [place] [address] Performed By: #### 5 7021-8 ####[facility]ORATORYCLIA [id number] [address] MCH (RBC) [Entitic mass] 28.0 pg Normal 26.0-34.0 [facility] Comment on above: Order Comment: Speci men Type: BLOOD SPECIMENOrdering Facility: [facility] Address: [address] [place] [address] Performed By: #### 5 7021-8 ####[facility]ORATORYCLIA [id number] [place] [address] [place] MCHC (RBC) [Mass/Vol] 30.8 g/dL Normal 30.5-36.0 [facility] Comment on above: Order Comment: Speci men Type: BLOOD SPECIMENOrdering Facility: [facility] Address: [address] [place] [address] Performed By: #### 5 7021-8 ####[facility]ORATORYCLIA [id number] [place] [address] [place] MCV (RBC) [Entitic vol] 91.0 fL Normal 80.0-100.0 [facility] Comment on above: Order Comment: Speci men Type: BLOOD SPECIMENOrdering Facility: [facility] Address: [address] [place] [address] Performed By: #### 5 7021-8 ####[facility]ATORYCLIA [id number] [address] [place] Monocytes (Bld) [#/Vol] 0.47 10*3/uL Normal <0.87 [facility] Comment on above: Order Comment: Speci men Type: BLOOD SPECIMENOrdering Facility: [facility] Address: [address] [place] [address] Performed By: #### 5 7021-8 ####[facility]ORATORYCLIA [id number] [address] [place] [facility] Monocytes/100 WBC (Bld) 6.1 % Normal [facility] Comment on above: Order Comment: Speci men Type: BLOOD SPECIMENOrdering Facility: [facility] Address: [address] [place] [address] Performed By: #### 5 7021-8 ####[facility]ORATORYCLIA [id number] [place] [address] [place] Neutrophils (Bld) [#/Vol] 5.55 10*3/uL Normal 1.45-7.50 [facility] Comment on above: Order Comment: Speci men Type: BLOOD SPECIMENOrdering Facility: [facility] Address: [address] [place] [address] Performed By: #### 5 7021-8 ####[facility]ATORYCLIA [id number] [address] Neutrophils/100 WBC (Bld) 72.3 % Normal [facility] Comment on above: Order Comment: Speci men Type: BLOOD SPECIMENOrdering Facility: [facility] Address: [address] [place] [address] Performed By: #### 5 7021-8 ####[facility]ATORYCLIA [id number] [address] [place] Nucleated RBC (Bld) [#/Vol] 10*3/uL Normal <0.01 [facility] Comment on above: Order Comment: Speci men Type: BLOOD SPECIMENOrdering Facility: [facility] Address: [address] [place] [address] Performed By: #### 5 7021-8 ####[facility]ATORYCLIA [id number] [address] Nucleated RBC/100 WBC (Bld) [Ratio] 0.0 /100 WBC Normal [facility] Comment on above: Order Comment: Speci men Type: BLOOD SPECIMENOrdering Facility: [facility] Address: [address] [place] [address] Performed By: #### 5 7021-8 ####[facility]ATORYCLIA [id number] [address] [place] Platelet mean volume (Bld) [Entitic vol] 9.3 fL Normal 9.0-12.7 [facility] Comment on above: Order Comment: Speci men Type: BLOOD SPECIMENOrdering Facility: [facility] Address: [address] [place] [address] Performed By: #### 5 7021-8 ####[facility]ATORYCLIA [id number] [address] [place] Platelets (Bld) [#/Vol] 319 10*3/uL Normal 150-400 [facility] Comment on above: Order Comment: Speci men Type: BLOOD SPECIMENOrdering Facility: [facility] Address: [facility] [place] [address] Performed By: #### 5 7021-8 ####[facility]ATORYCLIA [id number] [address] [place] RBC (Bld) [#/Vol] 3.21 10*6/uL Low 4.20-6.00 [facility] Comment on above: Order Comment: Speci men Type: BLOOD SPECIMENOrdering Facility: [facility] Address: [address] [place] [address] Performed By: #### 5 7021-8 ####[facility]ATORYCLIA [id number] [address] [place] WBC (Bld) [#/Vol] 7.67 10*3/uL Normal 3.70-11.00 [facility] Comment on above: Order Comment: Speci men Type: BLOOD SPECIMENOrdering Facility: [facility] Address: [address] [place] [address] Performed By: #### 5 7021-8 ####[facility]ATORYCLIA [id number] [address] [place] Basophils (Bld) [#/Vol] 0.04 10*3/uL Normal <0.11 [facility] Comment on above: Order Comment: Speci men Type: BLOOD SPECIMENOrdering Facility: [facility] Address: [address] [place] [address] Performed By: #### 5 7021-8 ####[facility]ATORYCLIA [id number] [address] Basophils/100 WBC (Bld) 0.5 % Normal [facility] Comment on above: Order Comment: Speci men Type: BLOOD SPECIMENOrdering Facility: [facility] Address: [address] [place] [address] Performed By: #### 5 7021-8 ####[facility]ORATORYCLIA [id number] [address] Differential cell count method Nom (Bld) Auto Normal [facility] Comment on above: Order Comment: Speci men Type: BLOOD SPECIMENOrdering Facility: [facility] Address: [address] [place] [address] Performed By: #### 5 7021-8 ####[facility]ATORYCLIA [id number] [address] [place] Eosinophils (Bld) [#/Vol] 0.19 10*3/uL Normal <0.46 [facility] Comment on above: Order Comment: Speci men Type: BLOOD SPECIMENOrdering Facility: [facility] Address: [address] [place] [address] Performed By: #### 5 7021-8 ####[facility]ATORYCLIA [id number] [address] Eosinophils/100 WBC (Bld) 2.5 % Normal [facility] Comment on above: Order Comment: Speci men Type: BLOOD SPECIMENOrdering Facility: [facility] Address: [address] [place] [address] Performed By: #### 5 7021-8 ####[facility]ATORYCLIA [id number] [address] Erythrocyte distribution width (RBC) [Ratio] 17.2 % High 11.5-15.0 [facility] Comment on above: Order Comment: Speci men Type: BLOOD SPECIMENOrdering Facility: [facility] Address: [address] [place] [address] Performed By: #### 5 7021-8 ####[facility]ATORYCLIA [id number] [address] Hematocrit (Bld) [Volume fraction] 29.5 % Low 39.0-51.0 [facility] Comment on above: Order Comment: Speci men Type: BLOOD SPECIMENOrdering Facility: [facility] Address: [address] [place] [address] Performed By: #### 5 7021-8 ####[facility]ORATORYCLIA [id number] [address] [place] Hemoglobin (Bld) [Mass/Vol] 9.2 g/dL Low 13.0-17.0 [facility] Comment on above: Order Comment: Speci men Type: BLOOD SPECIMENOrdering Facility: [facility] Address: [address] [place] [address] Performed By: #### 5 7021-8 ####[facility]ORATORYCLIA [id number] [address] [facility] IMMATURE GRAN % 0.4 % Normal [facility] Comment on above: Order Comment: Speci men Type: BLOOD SPECIMENOrdering Facility: [facility] Address: [address] [place] [address] Performed By: #### 5 7021-8 ####[facility]ATORYCLIA [id number] [address] IMMATURE GRAN ABS 0.03 k/uL Normal <0.10 [facility] Comment on above: Order Comment: Speci men Type: BLOOD SPECIMENOrdering Facility: [facility] Address: [address] [place] [address] Performed By: #### 5 7021-8 ####[facility]ATORYCLIA [id number] [address] [place] Lymphocytes (Bld) [#/Vol] 1.50 10*3/uL Normal 1.00-4.00 [facility] Comment on above: Order Comment: Speci men Type: BLOOD SPECIMENOrdering Facility: [facility] Address: [address] [place] [address] Performed By: #### 5 7021-8 ####[facility]ATORYCLIA [id number] [address] Lymphocytes/100 WBC (Bld) 19.7 % Normal [facility] Comment on above: Order Comment: Speci men Type: BLOOD SPECIMENOrdering Facility: [facility] Address: [address] [place] [address] Performed By: #### 5 7021-8 ####[facility]ATORYCLIA [id number] [address] MCH (RBC) [Entitic mass] 28.3 pg Normal 26.0-34.0 [facility] Comment on above: Order Comment: Speci men Type: BLOOD SPECIMENOrdering Facility: [facility] Address: [address] [place] [address] Performed By: #### 5 7021-8 ####[facility]ATORYCLIA [id number] [address] MCHC (RBC) [Mass/Vol] 31.2 g/dL Normal 30.5-36.0 [facility] Comment on above: Order Comment: Speci men Type: BLOOD SPECIMENOrdering Facility: [facility] Address: [address] [place] [address] Performed By: #### 5 7021-8 ####[facility]ATORYCLIA [id number] [address] MCV (RBC) [Entitic vol] 90.8 fL Normal 80.0-100.0 [facility] Comment on above: Order Comment: Speci men Type: BLOOD SPECIMENOrdering Facility: [facility] Address: [address] [place] [address] Performed By: #### 5 7021-8 ####[facility]ORATORYCLIA [id number] [address] Monocytes (Bld) [#/Vol] 0.49 10*3/uL Normal <0.87 [facility] Comment on above: Order Comment: Speci men Type: BLOOD SPECIMENOrdering Facility: [facility] Address: [address] [place] [address] Performed By: #### 5 7021-8 ####[facility]ATORYCLIA [id number] [address] Monocytes/100 WBC (Bld) 6.4 % Normal [facility] Comment on above: Order Comment: Speci men Type: BLOOD SPECIMENOrdering Facility: [facility] Address: [address] [place] [address] Performed By: #### 5 7021-8 ####[facility]ORATORYCLIA [id number] [address] [place] Neutrophils (Bld) [#/Vol] 5.38 10*3/uL Normal 1.45-7.50 [facility] Comment on above: Order Comment: Speci men Type: BLOOD SPECIMENOrdering Facility: [facility] Address: [address] [place] [address] Performed By: #### 5 7021-8 ####[facility]ORATORYCLIA [id number] [address] [place] Neutrophils/100 WBC (Bld) 70.5 % Normal [facility] Comment on above: Order Comment: Speci men Type: BLOOD SPECIMENOrdering Facility: [facility] Address: [address] [place] [address] Performed By: #### 5 7021-8 ####[facility]ORATORYCLIA [id number] [place] [address] [place] Nucleated RBC (Bld) [#/Vol] 10*3/uL Normal <0.01 [facility] Comment on above: Order Comment: Speci men Type: BLOOD SPECIMENOrdering Facility: [facility] Address: [address] [place] [address] Performed By: #### 5 7021-8 ####[facility]ORATORYCLIA [id number] [address] [place] Nucleated RBC/100 WBC (Bld) [Ratio] 0.0 /100 WBC Normal [facility] Comment on above: Order Comment: Speci men Type: BLOOD SPECIMENOrdering Facility: [facility] Address: [address] [place] [address] Performed By: #### 5 7021-8 ####[facility]ORATORYCLIA [id number] [place] [address] [place] Platelet mean volume (Bld) [Entitic vol] 9.0 fL Normal 9.0-12.7 [facility] Comment on above: Order Comment: Speci men Type: BLOOD SPECIMENOrdering Facility: [facility] Address: [address] [place] [address] Performed By: #### 5 7021-8 ####[facility]ORATORYCLIA [id number] [place] [address] [place] Platelets (Bld) [#/Vol] 316 10*3/uL Normal 150-400 [facility] Comment on above: Order Comment: Speci men Type: BLOOD SPECIMENOrdering Facility: [facility] Address: [address] [place] [address] Performed By: #### 5 7021-8 ####[facility]ORATORYCLIA [id number] [place] [address] [place] RBC (Bld) [#/Vol] 3.25 10*6/uL Low 4.20-6.00 [facility] Comment on above: Order Comment: Speci men Type: BLOOD SPECIMENOrdering Facility: [facility] Address: [address] [place] [address] Performed By: #### 5 7021-8 ####[facility]ORATORYCLIA [id number] [place] [address] [place] WBC (Bld) [#/Vol] 7.63 10*3/uL Normal 3.70-11.00 [facility] Comment on above: Order Comment: Speci men Type: BLOOD SPECIMENOrdering Facility: [facility] Address: [address] [place] [address] Performed By: #### 5 7021-8 ####[facility]ORATORYCLIA [id number] [place] [address] [place] Basophils (Bld) [#/Vol] Normal <0.11 [facility] Comment on above: Order Comment: Speci men Type: BLOOD SPECIMENOrdering Facility: [facility] Address: [address] [place] [address] Result Comment: Carolina Owens RN informed lab after results autoverified that she rd on the wrong patient. Lab to credit. Nurse to redraw on correct patient.Corrected result: Previously reported as 0.04 k/uL on 08/16/2021 at 4:44 AM EDT. Performed By: #### 5 7021-8 ####[facility]ORATORYCLIA [id number] [address] [place] [facility] Basophils/100 WBC (Bld) Normal [facility] Comment on above: Order Comment: Speci men Type: BLOOD SPECIMENOrdering Facility: [facility] Address: [address] [place] [address] Result Comment: Tati ected result: Previously reported as 0.4 % on 08/16/2021 at 4:44 AM EDT. Performed By: #### 5 7021-8 ####[facility]ORATORYCLIA [id number] [address] STATES OF [facility] CBC W Differential panel, method unspecified (Bld) Normal [facility] Comment on above: Order Comment: Speci men Type: BLOOD SPECIMENOrdering Facility: [facility] Address: [address] [place] [address] Result Comment: Carolina Owens RN informed lab after results autoverified that she rd on the wrong patient. Lab to credit. Nurse to redraw on correct patient. Performed By: #### 5 7021-8 ####[facility]ORATORYCLIA [id number] [address] [place] [facility] Differential cell count method Nom (Bld) Normal [facility] Comment on above: Order Comment: Speci men Type: BLOOD SPECIMENOrdering Facility: [facility] Address: [address] [place] [address] Result Comment: Carolina Owens RN informed lab after results autoverified that she rd on the wrong patient. Lab to credit. Nurse to redraw on correct patient.Corrected result: Previously reported as Auto on 08/16/2021 at 4:44 AM EDT. Performed By: #### 5 7021-8 ####[facility]ORATORYCLIA [id number] [address] Eosinophils (Bld) [#/Vol] Normal <0.46 [facility] Comment on above: Order Comment: Speci [facility] Type: BLOOD SPECIMENOrdering Facility: [facility] Address: [address] [place] [address] Result Comment: Carolina Owens RN informed lab after results autoverified that she rd on the wrong patient. Lab to credit. Nurse to redraw on correct patient.Corrected result: Previously reported as 0.07 k/uL on 08/16/2021 at 4:44 AM EDT. Performed By: #### 5 7021-8 ####[facility]ORATORYCLIA [id number] [address] Eosinophils/100 WBC (Bld) Normal [facility] Comment on above: Order Comment: [facility] Type: BLOOD SPECIMENOrdering Facility: [facility] Address: [address] [place] [address] Result Comment: Carolina Owens RN informed lab after results autoverified that she rd on the wrong patient. Lab to credit. Nurse to redraw on correct patient.Corrected result: Previously reported as 0.7 % on 08/16/2021 at 4:44 AM EDT. Performed By: #### 5 7021-8 ####[facility]ORATORYCLIA [id number] [address] Erythrocyte distribution width (RBC) [Ratio] Normal 11.5-15.0 [facility] Comment on above: Order Comment: [facility] Type: BLOOD SPECIMENOrdering Facility: [facility] Address: [address] [place] [address] Result Comment: Carolina Owens RN informed lab after results autoverified that she rd on the wrong patient. Lab to credit. Nurse to redraw on correct patient.Corrected result: Previously reported as 14.2 % on 08/16/2021 at 4:44 AM EDT. Performed By: #### 5 7021-8 ####[facility]ORATORYCLIA [id number] [address] Hematocrit (Bld) [Volume fraction] Normal 39.0-51.0 [facility] Comment on above: Order Comment: Speci men Type: BLOOD SPECIMENOrdering Facility: [facility] Address: [address] [place] [address] Result Comment: Carolina Owens RN informed lab after results autoverified that she rd on the wrong patient. Lab to credit. Nurse to redraw on correct patient.Corrected result: Previously reported as 34.3 % on 08/16/2021 at 4:44 AM EDT. Performed By: #### 5 7021-8 ####[facility]ORATORYCLIA [id number] [address] Hemoglobin (Bld) [Mass/Vol] Normal 13.0-17.0 [facility] Comment on above: Order Comment: Speci men Type: BLOOD SPECIMENOrdering Facility: [facility] Address: [address] [place] [address] Result Comment: Carolina Owens RN informed lab after results autoverified that she rd on the wrong patient. Lab to credit. Nurse to redraw on correct patient.Corrected result: Previously reported as 11.2 g/dL on 08/16/2021 at 4:44 AM EDT. Performed By: #### 5 7021-8 ####[facility]ATORYCLIA [id number] [address] IMMATURE GRAN % Normal [facility] Comment on above: Order Comment: Speci [facility] Type: BLOOD SPECIMENOrdering Facility: [facility] Address: [address] [place] [address] Result Comment: Carolina Owens RN informed lab after results autoverified that she rd on the wrong patient. Lab to credit. Nurse to redraw on correct patient.Corrected result: Previously reported as 0.8 % on 08/16/2021 at 4:44 AM EDT. Performed By: #### 5 7021-8 ####[facility]ATORYCLIA [id number] [address] [place] [facility] IMMATURE GRAN ABS Normal <0.10 [facility] Comment on above: Order Comment: Speci men Type: BLOOD SPECIMENOrdering Facility: [facility] Address: [address] [place] [address] Result Comment: Tati ected result: Previously reported as 0.08 k/uL on 08/16/2021 at 4:44 AM EDT. Performed By: #### 5 7021-8 ####[facility]ATORYCLIA [id number] [address] Lymphocytes (Bld) [#/Vol] Normal 1.00-4.00 [facility] Comment on above: Order Comment: Speci men Type: BLOOD SPECIMENOrdering Facility: [facility] Address: [address] [place] [address] Result Comment: Carolina Owens RN informed lab after results autoverified that she rd on the wrong patient. Lab to credit. Nurse to redraw on correct patient.Corrected result: Previously reported as 1.17 k/uL on 08/16/2021 at 4:44 AM EDT. Performed By: #### 5 7021-8 ####[facility]ATORYCLIA [id number] [address] Lymphocytes/100 WBC (Bld) Normal [facility] Comment on above: Order Comment: Speci men Type: BLOOD SPECIMENOrdering Facility: [facility] Address: [address] [place] [address] Result Comment: Carolina Owens RN informed lab after results autoverified that she rd on the wrong patient. Lab to credit. Nurse to redraw on correct patient.Corrected result: Previously reported as 12.0 % on 08/16/2021 at 4:44 AM EDT. Performed By: #### 5 7021-8 ####[facility]ATORYCLIA [id number] [address] MCHC (RBC) [Mass/Vol] Normal 30.5-36.0 [facility] Comment on above: Order Comment: Speci men Type: BLOOD SPECIMENOrdering Facility: [facility] Address: [address] [place] [address] Result Comment: Carolina Owens RN informed lab after results autoverified that she rd on the wrong patient. Lab to credit. Nurse to redraw on correct patient.Corrected result: Previously reported as 32.7 g/dL on 08/16/2021 at 4:44 AM EDT. Performed By: #### 5 7021-8 ####[facility]ORATORYCLIA [id number] [place] [address] [place] [facility] MCV (RBC) [Entitic vol] Normal 80.0-100.0 [facility] Comment on above: Order Comment: Speci francia Type: BLOOD SPECIMENOrdering Facility: [facility] Address: [address] [place] [address] Result Comment: Carolina Owens RN informed lab after results autoverified that she rd on the wrong patient. Lab to credit. Nurse to redraw on correct patient.Corrected result: Previously reported as 94.2 fL on 08/16/2021 at 4:44 AM EDT. Performed By: #### 5 7021-8 ####[facility]ORATORYCLIA [id number] [address] [place] Monocytes (Bld) [#/Vol] Normal <0.87 [facility] Comment on above: Order Comment: Speci men Type: BLOOD SPECIMENOrdering Facility: [facility] Address: [address] [place] [address] Result Comment: Carolina Owens RN informed lab after results autoverified that she rd on the wrong patient. Lab to credit. Nurse to redraw on correct patient.Corrected result: Previously reported as 0.99 k/uL on 08/16/2021 at 4:44 AM EDT. Performed By: #### 5 7021-8 ####[facility]ORATORYCLIA [id number] [address] [place] Monocytes/100 WBC (Bld) Normal [facility] Comment on above: Order Comment: Speci men Type: BLOOD SPECIMENOrdering Facility: [facility] Address: [address] [place] [address] Result Comment: Carolina Owens RN informed lab after results autoverified that she rd on the wrong patient. Lab to credit. Nurse to redraw on correct patient.Corrected result: Previously reported as 10.2 % on 08/16/2021 at 4:44 AM EDT. Performed By: #### 5 7021-8 ####[facility]ORATORYCLIA [id number] [place] [address] [place] Neutrophils (Bld) [#/Vol] Normal 1.45-7.50 [facility] Comment on above: Order Comment: Speci francia Type: BLOOD SPECIMENOrdering Facility: [facility] Address: [address] [place] [address] Result Comment: Carolina Owens RN informed lab after results autoverified that she rd on the wrong patient. Lab to credit. Nurse to redraw on correct patient.Corrected result: Previously reported as 7.40 k/uL on 08/16/2021 at 4:44 AM EDT. Performed By: #### 5 7021-8 ####[facility]ATORYCLIA [id number] [address] [place] Neutrophils/100 WBC (Bld) Normal [facility] Comment on above: Order Comment: Speci francia Type: BLOOD SPECIMENOrdering Facility: [facility] Address: [address] [place] [address] Result Comment: Carolina Owens RN informed lab after results autoverified that she rd on the wrong patient. Lab to credit. Nurse to redraw on correct patient.Corrected result: Previously reported as 75.9 % on 08/16/2021 at 4:44 AM EDT. Performed By: #### 5 7021-8 ####[facility]ORATORYCLIA [id number] [place] [address] [place] Platelet mean volume (Bld) [Entitic vol] Normal 9.0-12.7 [facility] Comment on above: Order Comment: Speci men Type: BLOOD SPECIMENOrdering Facility: [facility] Address: [address] [place] [address] Result Comment: Carolina Owens RN informed lab after results autoverified that she rd on the wrong patient. Lab to credit. Nurse to redraw on correct patient.Corrected result: Previously reported as 9.1 fL on 08/16/2021 at 4:44 AM EDT. Performed By: #### 5 7021-8 ####[facility]ORATORYCLIA [id number] [place] [address] [place] Platelets (Bld) [#/Vol] Normal 150-400 [facility] Comment on above: Order Comment: Speci francia Type: BLOOD SPECIMENOrdering Facility: [facility] Address: [address] [place] [address] Result Comment: Carolina Owens RN informed lab after results autoverified that she rd on the wrong patient. Lab to credit. Nurse to redraw on correct patient.Corrected result: Previously reported as 338 k/uL on 08/16/2021 at 4:44 AM EDT. Performed By: #### 5 7021-8 ####[facility]ORATORYCLIA [id number] [place] [address] [place] RBC (Bld) [#/Vol] Normal 4.20-6.00 [facility] Comment on above: Order Comment: Speci francia Type: BLOOD SPECIMENOrdering Facility: [facility] Address: [address] [place] [address] Result Comment: Carolina Owens RN informed lab after results autoverified that she rd on the wrong patient. Lab to credit. Nurse to redraw on correct patient.Corrected result: Previously reported as 3.64 m/uL on 08/16/2021 at 4:44 AM EDT. Performed By: #### 5 7021-8 ####[facility]ORATORYCLIA [id number] [place] [address] [place] WBC (Bld) [#/Vol] Normal 3.70-11.00 [facility] Comment on above: Order Comment: Speci men Type: BLOOD SPECIMENOrdering Facility: [facility] Address: [address] [place] [address] Result Comment: Carolina Owens RN informed lab after results autoverified that she rd on the wrong patient. Lab to credit. Nurse to redraw on correct patient.Corrected result: Previously reported as 9.75 k/uL on 08/16/2021 at 4:44 AM EDT. Performed By: #### 5 7021-8 ####[facility]ORATORYCLIA [id number] [address] OF [facility] CONSULT PROGon 08-16-2021 CONSULT PROG Normal [facility] Magnesium SerPl-mCncon 08-16 Magnesium [Mass/Vol] 1.8 mg/dL Normal 1.7-2.3 [facility] Comment on above: Order Comment: Speci men Type: BLOOD SPECIMENOrdering Facility: [facility] Address: [address] [place] [address] Performed By: #### 2 4321-2, 62609-0 ####[facility]ATORYCLIA [id number] [address] [place] NURSING PROGon 08-16-2021 NURSING PROG Normal [facility] Basic metabolic 2000 panelon 08-15-2021 Anion gap [Moles/Vol] 13 mmol/L Normal 9-18 [facility] Comment on above: Order Comment: Speci men Type: BLOOD SPECIMENOrdering Facility: [facility] Address: [address] [place] [address] Performed By: #### 2 4321-2 ####[facility]ATORYCLIA [id number] [address] [place] Calcium [Mass/Vol] 9.0 mg/dL Normal 8.5-10.2 [facility] Comment on above: Order Comment: Speci men Type: BLOOD SPECIMENOrdering Facility: [facility] Address: [address] [place] [address] Performed By: #### 2 4321-2 ####[facility]ORATORYCLIA [id number] [address] [place] Chloride [Moles/Vol] 95 mmol/L Low 97-105 [facility] Comment on above: Order Comment: Speci men Type: BLOOD SPECIMENOrdering Facility: [facility] Address: [address] [place] [address] Performed By: #### 2 4321-2 ####[facility]ORATORYCLIA [id number] [address] [place] CO2 [Moles/Vol] 28 mmol/L Normal 22-30 [facility] Comment on above: Order Comment: Speci men Type: BLOOD SPECIMENOrdering Facility: [facility] Address: [address] [place] [address] Performed By: #### 2 4321-2 ####[facility]ATORYCLIA [id number] [address] Creatinine [Mass/Vol] 0.50 mg/dL Low 0.73-1.22 [facility] Comment on above: Order Comment: Speci men Type: BLOOD SPECIMENOrdering Facility: [facility] Address: [address] [place] [address] Performed By: #### 2 4321-2 ####[facility]ORATORYCLIA [id number] [address] ESTIMATED GLOMERULAR FILTRATION RATE 110 mL/min/1.73m??? Normal >=60 [facility] Comment on above: Order Comment: Speci men Type: BLOOD SPECIMENOrdering Facility: [facility] Address: [address] [place] [address] Result Comment: Luzmaria mated Glomerular Filtration Rate [...] actual GFR. Performed By: #### 2 4321-2 ####[facility]ORATORYCLIA [id number] [place] [address] [place] Glucose [Mass/Vol] 106 mg/dL High 74-99 [facility] Comment on above: Order Comment: Shira francia Type: BLOOD SPECIMENOrdering Facility: [facility] Address: [address] [place] [address] Result Comment: The [place] [employer] (ADA) provides guidance for cutoff [...] Standards of Medical Care in Diabetes 2016, [place] [employer]. Diabetes Care. 2016.39(Suppl 1). Performed By: #### 2 4321-2 ####[facility]ORATORYCLIA [id number] [place] [address] [place] Potassium [Moles/Vol] 3.3 mmol/L Low 3.7-5.1 [facility] Comment on above: Order Comment: Shira feldman Type: BLOOD SPECIMENOrdering Facility: [facility] Address: [address] [address] Performed By: #### 2 4321-2 ####[facility]ORATORYCLIA [id number] [place] [id number] [place] Sodium [Moles/Vol] 136 mmol/L Normal 136-144 [facility] Comment on above: Order Comment: Shira feldman Type: BLOOD SPECIMENOrdering Facility: [facility] Address: [address] [address] Performed By: #### 2 4321-2 ####[facility]ATORYCLIA [id number] [place] [address] [place] Urea nitrogen [Mass/Vol] 11 mg/dL Normal 9-24 [facility] Comment on above: Order Comment: Speci men Type: BLOOD SPECIMENOrdering Facility: [facility] Address: [address] [place] [address] Performed By: #### 2 4321-2 ####[facility]ATORYCLIA [id number] [address] [place] CASE MANAGEMon 08-15-2021 CASE MANAGEM Normal [facility] CBC W Auto Differential pane l (Bld)on 08-15-2021 Basophils (Bld) [#/Vol] 0.03 10*3/uL Normal <0.11 [facility] Comment on above: Order Comment: Speci men Type: BLOOD SPECIMENOrdering Facility: [facility] Address: [address] [place] [address] Performed By: #### 5 7021-8 ####[facility]ATORYCLIA [id number] [address] [place] Basophils/100 WBC (Bld) 0.4 % Normal [facility] Comment on above: Order Comment: Speci men Type: BLOOD SPECIMENOrdering Facility: [facility] Address: [address] [place] [address] Performed By: #### 5 7021-8 ####[facility]ATORYCLIA [id number] [address] [place] Differential cell count method Nom (Bld) Auto Normal [facility] Comment on above: Order Comment: Speci men Type: BLOOD SPECIMENOrdering Facility: [facility] Address: [address] [place] [address] Performed By: #### 5 7021-8 ####[facility]ATORYCLIA [id number] [place] [address] [place] Eosinophils (Bld) [#/Vol] 0.20 10*3/uL Normal <0.46 [facility] Comment on above: Order Comment: Speci men Type: BLOOD SPECIMENOrdering Facility: [facility] Address: [address] [place] [address] Performed By: #### 5 7021-8 ####[facility]ATORYCLIA [id number] [address] Eosinophils/100 WBC (Bld) 2.5 % Normal [facility] Comment on above: Order Comment: Speci men Type: BLOOD SPECIMENOrdering Facility: [facility] Address: [address] [place] [address] Performed By: #### 5 7021-8 ####[facility]ATORYCLIA [id number] [address] Erythrocyte distribution width (RBC) [Ratio] 16.7 % High 11.5-15.0 [facility] Comment on above: Order Comment: Speci men Type: BLOOD SPECIMENOrdering Facility: [facility] Address: [address] [place] [address] Performed By: #### 5 7021-8 ####[facility]ATORYCLIA [id number] [address] Hematocrit (Bld) [Volume fraction] 30.3 % Low 39.0-51.0 [facility] Comment on above: Order Comment: Speci men Type: BLOOD SPECIMENOrdering Facility: [facility] Address: [address] [place] [address] Performed By: #### 5 7021-8 ####[facility]ATORYCLIA [id number] [address] Hemoglobin (Bld) [Mass/Vol] 9.4 g/dL Low 13.0-17.0 [facility] Comment on above: Order Comment: Speci men Type: BLOOD SPECIMENOrdering Facility: [facility] Address: [address] [place] [address] Performed By: #### 5 7021-8 ####[facility]ATORYCLIA [id number] [address] IMMATURE GRAN % 0.4 % Normal [facility] Comment on above: Order Comment: Speci men Type: BLOOD SPECIMENOrdering Facility: [facility] Address: [address] [place] [address] Performed By: #### 5 7021-8 ####[facility]ATORYCLIA [id number] [address] IMMATURE GRAN ABS 0.03 k/uL Normal <0.10 [facility] Comment on above: Order Comment: Speci men Type: BLOOD SPECIMENOrdering Facility: [facility] Address: [address] [place] [address] Performed By: #### 5 7021-8 ####[facility]ATORYCLIA [id number] [address] Lymphocytes (Bld) [#/Vol] 1.50 10*3/uL Normal 1.00-4.00 [facility] Comment on above: Order Comment: Speci men Type: BLOOD SPECIMENOrdering Facility: [facility] Address: [address] [place] [address] Performed By: #### 5 7021-8 ####[facility]ATORYCLIA [id number] [address] Lymphocytes/100 WBC (Bld) 18.5 % Normal [facility] Comment on above: Order Comment: Speci men Type: BLOOD SPECIMENOrdering Facility: [facility] Address: [address] [place] [address] Performed By: #### 5 7021-8 ####[facility]ATORYCLIA [id number] [address] [place] MCH (RBC) [Entitic mass] 29.0 pg Normal 26.0-34.0 [facility] Comment on above: Order Comment: Speci men Type: BLOOD SPECIMENOrdering Facility: [facility] Address: [address] [place] [address] Performed By: #### 5 7021-8 ####[facility]ORATORYCLIA [id number] [address] [place] [facility] MCHC (RBC) [Mass/Vol] 31.0 g/dL Normal 30.5-36.0 [facility] Comment on above: Order Comment: Speci men Type: BLOOD SPECIMENOrdering Facility: [facility] Address: [address] [place] [address] Performed By: #### 5 7021-8 ####[facility]ATORYCLIA [id number] [address] MCV (RBC) [Entitic vol] 93.5 fL Normal 80.0-100.0 [facility] Comment on above: Order Comment: Speci men Type: BLOOD SPECIMENOrdering Facility: [facility] Address: [address] [place] [address] Performed By: #### 5 7021-8 ####[facility]ORATORYCLIA [id number] [address] [place] Monocytes (Bld) [#/Vol] 0.47 10*3/uL Normal <0.87 [facility] Comment on above: Order Comment: Speci men Type: BLOOD SPECIMENOrdering Facility: [facility] Address: [address] [place] [address] Performed By: #### 5 7021-8 ####[facility]ORATORYCLIA [id number] [address] [place] [facility] Monocytes/100 WBC (Bld) 5.8 % Normal [facility] Comment on above: Order Comment: Speci men Type: BLOOD SPECIMENOrdering Facility: [facility] Address: [address] [place] [address] Performed By: #### 5 7021-8 ####[facility]ATORYCLIA [id number] [address] [place] Neutrophils (Bld) [#/Vol] 5.87 10*3/uL Normal 1.45-7.50 [facility] Comment on above: Order Comment: Speci men Type: BLOOD SPECIMENOrdering Facility: [facility] Address: [address] [address] Performed By: #### 5 7021-8 ####[facility]ATORYCLIA [id number] [address] Neutrophils/100 WBC (Bld) 72.4 % Normal [facility] Comment on above: Order Comment: Speci men Type: BLOOD SPECIMENOrdering Facility: [facility] Address: [address] [place] [address] Performed By: #### 5 7021-8 ####[facility]ATORYCLIA [id number] [address] [place] Nucleated RBC (Bld) [#/Vol] 10*3/uL Normal <0.01 [facility] Comment on above: Order Comment: Speci men Type: BLOOD SPECIMENOrdering Facility: [facility] Address: [address] [place] [address] Performed By: #### 5 7021-8 ####[facility]ATORYCLIA [id number] [address] Nucleated RBC/100 WBC (Bld) [Ratio] 0.0 /100 WBC Normal [facility] Comment on above: Order Comment: Speci men Type: BLOOD SPECIMENOrdering Facility: [facility] Address: [address] [place] [address] Performed By: #### 5 7021-8 ####[facility]ORATORYCLIA [id number] [address] [place] Platelet mean volume (Bld) [Entitic vol] 9.4 fL Normal 9.0-12.7 [facility] Comment on above: Order Comment: Speci men Type: BLOOD SPECIMENOrdering Facility: [facility] Address: [address] [place] [address] Performed By: #### 5 7021-8 ####[facility]ORATORYCLIA [id number] [address] [place] Platelets (Bld) [#/Vol] 290 10*3/uL Normal 150-400 [facility] Comment on above: Order Comment: Speci men Type: BLOOD SPECIMENOrdering Facility: [facility] Address: [address] [place] [address] Performed By: #### 5 7021-8 ####[facility]ORATORYCLIA [id number] [address] [place] RBC (Bld) [#/Vol] 3.24 10*6/uL Low 4.20-6.00 [facility] Comment on above: Order Comment: Speci men Type: BLOOD SPECIMENOrdering Facility: [facility] Address: [address] [place] [address] Performed By: #### 5 7021-8 ####[facility]ORATORYCLIA [id number] [address] [place] [facility] WBC (Bld) [#/Vol] 8.10 10*3/uL Normal 3.70-11.00 [facility] Comment on above: Order Comment: Speci men Type: BLOOD SPECIMENOrdering Facility: [facility] Address: [address] [place] [address] Performed By: #### 5 7021-8 ####[facility]ORATORYCLIA [id number] [address] OF [facility] THERAPY NTon 08-15-2021 THERAPY NT Normal [facility] THERAPY NT Normal [facility] THERAPY NT Normal [facility] Basic metabolic 2000 panelon 08-14-2021 Anion gap [Moles/Vol] 10 mmol/L Normal 9-18 [facility] Comment on above: Order Comment: Speci men Type: BLOOD SPECIMENOrdering Facility: [facility] Address: [address] [place] [address] Performed By: #### 2 4321-2 ####[facility]ORATORYCLIA [id number] [address] [place] [facility] Calcium [Mass/Vol] 8.8 mg/dL Normal 8.5-10.2 [facility] Comment on above: Order Comment: Speci men Type: BLOOD SPECIMENOrdering Facility: [facility] Address: [address] [place] [address] Performed By: #### 2 4321-2 ####[facility]ORATORYCLIA [id number] [place] [address] [place] Chloride [Moles/Vol] 92 mmol/L Low 97-105 [facility] Comment on above: Order Comment: Speci men Type: BLOOD SPECIMENOrdering Facility: [facility] Address: [address] [place] [address] Performed By: #### 2 4321-2 ####[facility]ORATORYCLIA [id number] [address] [place] CO2 [Moles/Vol] 29 mmol/L Normal 22-30 [facility] Comment on above: Order Comment: Speci men Type: BLOOD SPECIMENOrdering Facility: [facility] Address: [address] [place] [address] Performed By: #### 2 4321-2 ####[facility]ORATORYCLIA [id number] [address] [place] Creatinine [Mass/Vol] 0.49 mg/dL Low 0.73-1.22 [facility] Comment on above: Order Comment: Speci men Type: BLOOD SPECIMENOrdering Facility: [facility] Address: [address] [place] [address] Performed By: #### 2 4321-2 ####[facility]ORATORYCLIA [id number] [address] ESTIMATED GLOMERULAR FILTRATION RATE 111 mL/min/1.73m??? Normal >=60 [facility] Comment on above: Order Comment: Speci men Type: BLOOD SPECIMENOrdering Facility: [facility] Address: [address] [place] [address] Result Comment: Luzmaria mated Glomerular Filtration Rate [...] actual GFR. Performed By: #### 2 4321-2 ####[facility] LABORATORYCLIA [id number] [place] [address] [place] Glucose [Mass/Vol] 104 mg/dL High 74-99 [facility] Comment on above: Order Comment: Shira feldman Type: BLOOD SPECIMENOrdering Facility: [facility] Address: [address] [address] Result Comment: The [place] [employer] (ADA) provides guidance for cutoff [...] Standards of Medical Care in Diabetes 2016, [place] [employer]. Diabetes Care. 2016.39(Suppl 1). Performed By: #### 2 4321-2 ####[facility]ORATORYCLIA [id number] [place] [address] [place] Potassium [Moles/Vol] 3.1 mmol/L Low 3.7-5.1 [facility] Comment on above: Order Comment: Shira feldman Type: BLOOD SPECIMENOrdering Facility: [facility] Address: [address] [address] Performed By: #### 2 4321-2 ####[facility]ORATORYCLIA [id number] [place] [address] [place] Sodium [Moles/Vol] 131 mmol/L Low 136-144 [facility] Comment on above: Order Comment: Shira feldman Type: BLOOD SPECIMENOrdering Facility: [facility] Address: [address] [address] Performed By: #### 2 4321-2 ####[facility]ATORYCLIA [id number] [address] [place] [facility] Urea nitrogen [Mass/Vol] 13 mg/dL Normal 9-24 [facility] Comment on above: Order Comment: Speci men Type: BLOOD SPECIMENOrdering Facility: [facility] Address: [address] [place] [address] Performed By: #### 2 4321-2 ####[facility]ATORYCLIA [id number] [address] [place] CBC W Auto Differential pane l (Bld)on 08-14-2021 Basophils (Bld) [#/Vol] 10*3/uL Normal <0.11 [facility] Comment on above: Order Comment: Speci men Type: BLOOD SPECIMENOrdering Facility: [facility] Address: [address] [place] [address] Performed By: #### 5 7021-8 ####[facility]ATORYCLIA [id number] [address] [place] Basophils/100 WBC (Bld) 0.2 % Normal [facility] Comment on above: Order Comment: Speci men Type: BLOOD SPECIMENOrdering Facility: [facility] Address: [address] [place] [address] Performed By: #### 5 7021-8 ####[facility]ATORYCLIA [id number] [address] Differential cell count method Nom (Bld) Auto Normal [facility] Comment on above: Order Comment: Speci men Type: BLOOD SPECIMENOrdering Facility: [facility] Address: [address] [place] [address] Performed By: #### 5 7021-8 ####[facility]ATORYCLIA [id number] [place] [address] [place] Eosinophils (Bld) [#/Vol] 0.23 10*3/uL Normal <0.46 [facility] Comment on above: Order Comment: Speci men Type: BLOOD SPECIMENOrdering Facility: [facility] Address: [address] [place] [address] Performed By: #### 5 7021-8 ####[facility]ATORYCLIA [id number] [address] STATES OF [facility] Eosinophils/100 WBC (Bld) 2.7 % Normal [facility] Comment on above: Order Comment: Speci men Type: BLOOD SPECIMENOrdering Facility: [facility] Address: [address] [place] [address] Performed By: #### 5 7021-8 ####[facility]ATORYCLIA [id number] [address] Erythrocyte distribution width (RBC) [Ratio] 16.6 % High 11.5-15.0 [facility] Comment on above: Order Comment: Speci men Type: BLOOD SPECIMENOrdering Facility: [facility] Address: [address] [place] [address] Performed By: #### 5 7021-8 ####[facility]ATORYCLIA [id number] [address] Hematocrit (Bld) [Volume fraction] 28.6 % Low 39.0-51.0 [facility] Comment on above: Order Comment: Speci men Type: BLOOD SPECIMENOrdering Facility: [facility] Address: [address] [place] [address] Performed By: #### 5 7021-8 ####[facility]ATORYCLIA [id number] [address] [place] Hemoglobin (Bld) [Mass/Vol] 9.0 g/dL Low 13.0-17.0 [facility] Comment on above: Order Comment: Speci men Type: BLOOD SPECIMENOrdering Facility: [facility] Address: [address] [place] [address] Performed By: #### 5 7021-8 ####[facility]ATORYCLIA [id number] [address] [place] IMMATURE GRAN % 0.2 % Normal [facility] Comment on above: Order Comment: Speci men Type: BLOOD SPECIMENOrdering Facility: [facility] Address: [address] [place] [address] Performed By: #### 5 7021-8 ####[facility]ATORYCLIA [id number] [address] IMMATURE GRAN ABS <0.03 Normal <0.10 [facility] Comment on above: Order Comment: Speci men Type: BLOOD SPECIMENOrdering Facility: [facility] Address: [address] [place] [address] Performed By: #### 5 7021-8 ####[facility]ATORYCLIA [id number] [address] Lymphocytes (Bld) [#/Vol] 1.33 10*3/uL Normal 1.00-4.00 [facility] Comment on above: Order Comment: Speci men Type: BLOOD SPECIMENOrdering Facility: [facility] Address: [address] [place] [address] Performed By: #### 5 7021-8 ####[facility]ATORYCLIA [id number] [address] Lymphocytes/100 WBC (Bld) 15.6 % Normal [facility] Comment on above: Order Comment: Speci men Type: BLOOD SPECIMENOrdering Facility: [facility] Address: [address] [place] [address] Performed By: #### 5 7021-8 ####[facility]ATORYCLIA [id number] [address] [place] [facility] MCH (RBC) [Entitic mass] 29.0 pg Normal 26.0-34.0 [facility] Comment on above: Order Comment: Speci men Type: BLOOD SPECIMENOrdering Facility: [facility] Address: [address] [place] [address] Performed By: #### 5 7021-8 ####[facility]ATORYCLIA [id number] [address] STATES OF [facility] MCHC (RBC) [Mass/Vol] 31.5 g/dL Normal 30.5-36.0 [facility] Comment on above: Order Comment: Speci men Type: BLOOD SPECIMENOrdering Facility: [facility] Address: [address] [place] [address] Performed By: #### 5 7021-8 ####[facility]ATORYCLIA [id number] [address] MCV (RBC) [Entitic vol] 92.3 fL Normal 80.0-100.0 [facility] Comment on above: Order Comment: Speci men Type: BLOOD SPECIMENOrdering Facility: [facility] Address: [address] [place] [address] Performed By: #### 5 7021-8 ####[facility]ATORYCLIA [id number] [address] [place] Monocytes (Bld) [#/Vol] 0.44 10*3/uL Normal <0.87 [facility] Comment on above: Order Comment: Speci men Type: BLOOD SPECIMENOrdering Facility: [facility] Address: [address] [place] [address] Performed By: #### 5 7021-8 ####[facility]ATORYCLIA [id number] [address] STATES OF [facility] Monocytes/100 WBC (Bld) 5.2 % Normal [facility] Comment on above: Order Comment: Speci men Type: BLOOD SPECIMENOrdering Facility: [facility] Address: [address] [place] [address] Performed By: #### 5 7021-8 ####[facility]ATORYCLIA [id number] [address] [place] Neutrophils (Bld) [#/Vol] 6.46 10*3/uL Normal 1.45-7.50 [facility] Comment on above: Order Comment: Speci men Type: BLOOD SPECIMENOrdering Facility: [facility] Address: [address] [address] Performed By: #### 5 7021-8 ####[facility]ATORYCLIA [id number] [address] Neutrophils/100 WBC (Bld) 76.1 % Normal [facility] Comment on above: Order Comment: Speci men Type: BLOOD SPECIMENOrdering Facility: [facility] Address: [address] [place] [address] Performed By: #### 5 7021-8 ####[facility]ATORYCLIA [id number] [address] [place] Nucleated RBC (Bld) [#/Vol] 10*3/uL Normal <0.01 [facility] Comment on above: Order Comment: Speci men Type: BLOOD SPECIMENOrdering Facility: [facility] Address: [address] [place] [address] Performed By: #### 5 7021-8 ####[facility]ATORYCLIA [id number] [address] Nucleated RBC/100 WBC (Bld) [Ratio] 0.0 /100 WBC Normal [facility] Comment on above: Order Comment: Speci men Type: BLOOD SPECIMENOrdering Facility: [facility] Address: [address] [place] [address] Performed By: #### 5 7021-8 ####[facility]ATORYCLIA [id number] [address] Platelet mean volume (Bld) [Entitic vol] 9.5 fL Normal 9.0-12.7 [facility] Comment on above: Order Comment: Speci men Type: BLOOD SPECIMENOrdering Facility: [facility] Address: [address] [place] [address] Performed By: #### 5 7021-8 ####[facility]ATORYCLIA [id number] [address] [place] Platelets (Bld) [#/Vol] 247 10*3/uL Normal 150-400 [facility] Comment on above: Order Comment: Speci men Type: BLOOD SPECIMENOrdering Facility: [facility] Address: [address] [place] [address] Performed By: #### 5 7021-8 ####[facility]ATORYCLIA [id number] [place] [address] [place] RBC (Bld) [#/Vol] 3.10 10*6/uL Low 4.20-6.00 [facility] Comment on above: Order Comment: Speci men Type: BLOOD SPECIMENOrdering Facility: [facility] Address: [address] [place] [address] Performed By: #### 5 7021-8 ####[facility]ATORYCLIA [id number] [address] [place] [facility] WBC (Bld) [#/Vol] 8.50 10*3/uL Normal 3.70-11.00 [facility] Comment on above: Order Comment: Speci men Type: BLOOD SPECIMENOrdering Facility: [facility] Address: [address] [place] [address] Performed By: #### 5 7021-8 ####[facility]ATORYCLIA [id number] [address] [place] CONSULTon 08-14-2021 CONSULT Normal [facility] NURSING PROGon 08-14-2021 NURSING PROG Normal [facility] CBC W Auto Differential pane l (Bld)on 08-13-2021 Basophils (Bld) [#/Vol] 10*3/uL Normal <0.11 [facility] Comment on above: Order Comment: Speci men Type: BLOOD SPECIMENOrdering Facility: [facility] Address: [address] [place] [address] Performed By: #### 5 7021-8 ####[facility]ATORYCLIA [id number] [address] [place] Basophils/100 WBC (Bld) 0.2 % Normal [facility] Comment on above: Order Comment: Speci men Type: BLOOD SPECIMENOrdering Facility: [facility] Address: [address] [place] [address] Performed By: #### 5 7021-8 ####[facility]ATORYCLIA [id number] [address] Differential cell count method Nom (Bld) Auto Normal [facility] Comment on above: Order Comment: Speci men Type: BLOOD SPECIMENOrdering Facility: [facility] Address: [address] [place] [address] Performed By: #### 5 7021-8 ####[facility]ORYCLIA [id number] [address] [place] Eosinophils (Bld) [#/Vol] 0.31 10*3/uL Normal <0.46 [facility] Comment on above: Order Comment: Speci men Type: BLOOD SPECIMENOrdering Facility: [facility] Address: [address] [place] [address] Performed By: #### 5 7021-8 ####[facility]ATORYCLIA [id number] [address] Eosinophils/100 WBC (Bld) 3.7 % Normal [facility] Comment on above: Order Comment: Speci men Type: BLOOD SPECIMENOrdering Facility: [facility] Address: [address] [place] [address] Performed By: #### 5 7021-8 ####[facility]ATORYCLIA [id number] [address] [place] Erythrocyte distribution width (RBC) [Ratio] 16.6 % High 11.5-15.0 [facility] Comment on above: Order Comment: Speci men Type: BLOOD SPECIMENOrdering Facility: [facility] Address: [address] [place] [address] Performed By: #### 5 7021-8 ####[facility]ATORYCLIA [id number] [address] [place] Hematocrit (Bld) [Volume fraction] 27.5 % Low 39.0-51.0 [facility] Comment on above: Order Comment: Speci men Type: BLOOD SPECIMENOrdering Facility: [facility] Address: [address] [place] [address] Performed By: #### 5 7021-8 ####[facility]ATORYCLIA [id number] [address] [place] Hemoglobin (Bld) [Mass/Vol] 8.4 g/dL Low 13.0-17.0 [facility] Comment on above: Order Comment: Speci men Type: BLOOD SPECIMENOrdering Facility: [facility] Address: [address] [place] [address] Performed By: #### 5 7021-8 ####[facility]ATORYCLIA [id number] [address] [place] IMMATURE GRAN % 0.5 % Normal [facility] Comment on above: Order Comment: Speci men Type: BLOOD SPECIMENOrdering Facility: [facility] Address: [address] [place] [address] Performed By: #### 5 7021-8 ####[facility]ATORYCLIA [id number] [address] IMMATURE GRAN ABS 0.04 k/uL Normal <0.10 [facility] Comment on above: Order Comment: Speci men Type: BLOOD SPECIMENOrdering Facility: [facility] Address: [address] [place] [address] Performed By: #### 5 7021-8 ####[facility]ATORYCLIA [id number] [address] [place] Lymphocytes (Bld) [#/Vol] 1.55 10*3/uL Normal 1.00-4.00 [facility] Comment on above: Order Comment: Speci men Type: BLOOD SPECIMENOrdering Facility: [facility] Address: [address] [place] [address] Performed By: #### 5 7021-8 ####[facility]ATORYCLIA [id number] [address] Lymphocytes/100 WBC (Bld) 18.7 % Normal [facility] Comment on above: Order Comment: Speci men Type: BLOOD SPECIMENOrdering Facility: [facility] Address: [address] [place] [address] Performed By: #### 5 7021-8 ####[facility]ATORYCLIA [id number] [address] MCH (RBC) [Entitic mass] 28.9 pg Normal 26.0-34.0 [facility] Comment on above: Order Comment: Speci men Type: BLOOD SPECIMENOrdering Facility: [facility] Address: [address] [place] [address] Performed By: #### 5 7021-8 ####[facility]ATORYCLIA [id number] [address] MCHC (RBC) [Mass/Vol] 30.5 g/dL Normal 30.5-36.0 [facility] Comment on above: Order Comment: Speci men Type: BLOOD SPECIMENOrdering Facility: [facility] Address: [address] [place] [address] Performed By: #### 5 7021-8 ####[facility]ATORYCLIA [id number] [address] MCV (RBC) [Entitic vol] 94.5 fL Normal 80.0-100.0 [facility] Comment on above: Order Comment: Speci men Type: BLOOD SPECIMENOrdering Facility: [facility] Address: [address] [place] [address] Performed By: #### 5 7021-8 ####[facility]ATORYCLIA [id number] [address] Monocytes (Bld) [#/Vol] 0.47 10*3/uL Normal <0.87 [facility] Comment on above: Order Comment: Speci men Type: BLOOD SPECIMENOrdering Facility: [facility] Address: [address] [place] [address] Performed By: #### 5 7021-8 ####[facility]ATORYCLIA [id number] [address] [place] Monocytes/100 WBC (Bld) 5.7 % Normal [facility] Comment on above: Order Comment: Speci men Type: BLOOD SPECIMENOrdering Facility: [facility] Address: [address] [place] [address] Performed By: #### 5 7021-8 ####[facility]ATORYCLIA [id number] [place] [address] [place] Neutrophils (Bld) [#/Vol] 5.92 10*3/uL Normal 1.45-7.50 [facility] Comment on above: Order Comment: Speci men Type: BLOOD SPECIMENOrdering Facility: [facility] Address: [address] [place] [address] Performed By: #### 5 7021-8 ####[facility]ATORYCLIA [id number] [address] [place] Neutrophils/100 WBC (Bld) 71.2 % Normal [facility] Comment on above: Order Comment: Speci men Type: BLOOD SPECIMENOrdering Facility: [facility] Address: [address] [place] [address] Performed By: #### 5 7021-8 ####[facility]ORATORYCLIA [id number] [place] [address] [place] Nucleated RBC (Bld) [#/Vol] 10*3/uL Normal <0.01 [facility] Comment on above: Order Comment: Speci men Type: BLOOD SPECIMENOrdering Facility: [facility] Address: [address] [place] [address] Performed By: #### 5 7021-8 ####[facility]ATORYCLIA [id number] [place] [address] [place] Nucleated RBC/100 WBC (Bld) [Ratio] 0.0 /100 WBC Normal [facility] Comment on above: Order Comment: Speci men Type: BLOOD SPECIMENOrdering Facility: [facility] Address: [address] [place] [address] Performed By: #### 5 7021-8 ####[facility]ATORYCLIA [id number] [address] [place] Platelet mean volume (Bld) [Entitic vol] 9.9 fL Normal 9.0-12.7 [facility] Comment on above: Order Comment: Speci men Type: BLOOD SPECIMENOrdering Facility: [facility] Address: [address] [place], [place] [address] Performed By: #### 5 7021-8 ####[facility]ATORYCLIA [id number] [address] [place] Platelets (Bld) [#/Vol] 203 10*3/uL Normal 150-400 [facility] Comment on above: Order Comment: Speci men Type: BLOOD SPECIMENOrdering Facility: [facility] Address: [address] [place] [address] Performed By: #### 5 7021-8 ####[facility]ATORYCLIA [id number] [place] [address] [place] RBC (Bld) [#/Vol] 2.91 10*6/uL Low 4.20-6.00 [facility] Comment on above: Order Comment: Speci men Type: BLOOD SPECIMENOrdering Facility: [facility] Address: [address] [place], [place] [address] Performed By: #### 5 7021-8 ####[facility]ATORYCLIA [id number] [address] [place] WBC (Bld) [#/Vol] 8.31 10*3/uL Normal 3.70-11.00 [facility] Comment on above: Order Comment: Speci men Type: BLOOD SPECIMENOrdering Facility: [facility] Address: [address] [place], [place] [address] Performed By: #### 5 7021-8 ####[facility]ATORYCLIA [id number] [place] [address] [place] aPTT PPPon 08-13-2021 aPTT Coag (PPP) [Time] 69.7 s High 23.0-32.4 [facility] Comment on above: Order Comment: Speci men Type: BLOOD SPECIMENOrdering Facility: [facility] Address: [address] [place] [address] Performed By: #### 1 4979-9 ####[facility]ATORYCLIA [id number] [address] [place] [facility] aPTT Coag (PPP) [Time] 70.6 s High 23.0-32.4 [facility] Comment on above: Order Comment: Speci men Type: BLOOD SPECIMENOrdering Facility: [facility] Address: [address] [place] [address] Performed By: #### 1 4979-9 ####[facility]ATORYCLIA [id number] [place] [address] [place] ALLIED HEALTHon 08-12-2021 ALLIED HEALTH Normal [facility] ALLIED HEALTH Normal [facility] Basic metabolic 2000 panelon 08-12-2021 Anion gap [Moles/Vol] 7 mmol/L Low 9-18 [facility] Comment on above: Order Comment: Speci men Type: BLOOD SPECIMENOrdering Facility: [facility] Address: [address] [place] [address] Performed By: #### 2 4321-2, , 2776-05 ####[facility]ATORYCLIA [id number] [place] [address] [place] [facility] Calcium [Mass/Vol] 8.8 mg/dL Normal 8.5-10.2 [facility] Comment on above: Order Comment: Speci men Type: BLOOD SPECIMENOrdering Facility: [facility] Address: [address] [place] [address] Performed By: #### 2 4321-2, , 2776-05 ####[facility]ATORYCLIA [id number] [address] [place] Chloride [Moles/Vol] 96 mmol/L Low 97-105 [facility] Comment on above: Order Comment: Speci men Type: BLOOD SPECIMENOrdering Facility: [facility] Address: [address] [place] [address] Performed By: #### 2 4321-2, , 2776-05 ####[facility]ATORYCLIA [id number] [address] [place] [facility] CO2 [Moles/Vol] 32 mmol/L High 22-30 [facility] Comment on above: Order Comment: Speci men Type: BLOOD SPECIMENOrdering Facility: [facility] Address: [address] [place] [address] Performed By: #### 2 4321-2, , 2776-05 ####[facility]CL[facility] [id number] [address] [facility] Creatinine [Mass/Vol] 0.52 mg/dL Low 0.73-1.22 [facility] Comment on above: Order Comment: Speci men Type: BLOOD SPECIMENOrdering Facility: [facility] Address: [address] [place] [address] Performed By: #### 2 4321-2, , 2776-05 ####[facility] CENTERIA [id number] [address] ESTIMATED GLOMERULAR FILTRATION RATE 109 mL/min/1.73m??? Normal >=60 [facility] Comment on above: Order Comment: Speci men Type: BLOOD SPECIMENOrdering Facility: [facility] Address: [address] [place] [address] Result Comment: Luzmaria mated Glomerular Filtration Rate [...] Performed By: #### 2 4321-2, , 2776-05 ####[facility]ORATORYCLIA [id number] [place] [address] [place] Glucose [Mass/Vol] 119 mg/dL High 74-99 [facility] Comment on above: Order Comment: Shira feldman Type: BLOOD SPECIMENOrdering Facility: [facility] Address: [address] [place], [place] [address] Result Comment: The [place] [employer] (ADA) provides guidance for cutoff [...] Standards of Medical Care in Diabetes 2016, [place] [employer]. Diabetes Care. 2016.39(Suppl 1). Performed By: #### 2 4321-2, , 2776-05 ####[facility]ATORYCLIA [id number] [place] [address] [place] Potassium [Moles/Vol] 3.7 mmol/L Normal 3.7-5.1 [facility] Comment on above: Order Comment: Shira feldman Type: BLOOD SPECIMENOrdering Facility: [facility] Address: [address] [place] [address] Performed By: #### 2 4321-2, , 2776-05 ####[facility]ATORYCLIA [id number] [place] [address] [place] Sodium [Moles/Vol] 135 mmol/L Low 136-144 [facility] Comment on above: Order Comment: Shira feldman Type: BLOOD SPECIMENOrdering Facility: [facility] Address: [address] [address] Performed By: #### 2 4321-2, 25423-5, 277-1 ####[facility]ATORYCLIA [id number] [address] [place] [facility] Urea nitrogen [Mass/Vol] 20 mg/dL Normal 9-24 [facility] Comment on above: Order Comment: Speci men Type: BLOOD SPECIMENOrdering Facility: [facility] Address: [address] [place] [address] Performed By: #### 2 4321-2, , 2776-05 ####[facility]ATORYCLIA [id number] [address] [place] CASE MANAGEMon 08-12-2021 CASE MANAGEM Normal [facility] CBC W Auto Differential pane l (Bld)on 08-12-2021 Basophils (Bld) [#/Vol] 0.04 10*3/uL Normal <0.11 [facility] Comment on above: Order Comment: Speci men Type: BLOOD SPECIMENOrdering Facility: [facility] Address: [address] [place] [address] Performed By: #### 5 7021-8 ####[facility]ATORYCLIA [id number] [address] [place] Basophils/100 WBC (Bld) 0.5 % Normal [facility] Comment on above: Order Comment: Speci men Type: BLOOD SPECIMENOrdering Facility: [facility] Address: [address] [place] [address] Performed By: #### 5 7021-8 ####[facility]ATORYCLIA [id number] [address] [place] [facility] Differential cell count method Nom (Bld) Auto Normal [facility] Comment on above: Order Comment: Speci men Type: BLOOD SPECIMENOrdering Facility: [facility] Address: [address] [place] [address] Performed By: #### 5 7021-8 ####[facility]ATORYCLIA [id number] [address] [place] Eosinophils (Bld) [#/Vol] 0.19 10*3/uL Normal <0.46 [facility] Comment on above: Order Comment: Speci men Type: BLOOD SPECIMENOrdering Facility: [facility] Address: [address] [place] [address] Performed By: #### 5 7021-8 ####[facility]ORATORYCLIA [id number] [address] [place] Eosinophils/100 WBC (Bld) 2.3 % Normal [facility] Comment on above: Order Comment: Speci men Type: BLOOD SPECIMENOrdering Facility: [facility] Address: [address] [place] [address] Performed By: #### 5 7021-8 ####[facility]ORATORYCLIA [id number] [address] Erythrocyte distribution width (RBC) [Ratio] 17.1 % High 11.5-15.0 [facility] Comment on above: Order Comment: Speci men Type: BLOOD SPECIMENOrdering Facility: [facility] Address: [address] [place] [address] Performed By: #### 5 7021-8 ####[facility]ORATORYCLIA [id number] [address] [place] Hematocrit (Bld) [Volume fraction] 25.3 % Low 39.0-51.0 [facility] Comment on above: Order Comment: Speci men Type: BLOOD SPECIMENOrdering Facility: [facility] Address: [address] [place] [address] Performed By: #### 5 7021-8 ####[facility]ORATORYCLIA [id number] [address] [place] Hemoglobin (Bld) [Mass/Vol] 7.9 g/dL Low 13.0-17.0 [facility] Comment on above: Order Comment: Speci men Type: BLOOD SPECIMENOrdering Facility: [facility] Address: [address] [place] [address] Performed By: #### 5 7021-8 ####[facility]ORATORYCLIA [id number] [address] IMMATURE GRAN % 0.5 % Normal [facility] Comment on above: Order Comment: Speci men Type: BLOOD SPECIMENOrdering Facility: [facility] Address: [address] [place] [address] Performed By: #### 5 7021-8 ####[facility]ORATORYCLIA [id number] [address] IMMATURE GRAN ABS 0.04 k/uL Normal <0.10 [facility] Comment on above: Order Comment: Speci men Type: BLOOD SPECIMENOrdering Facility: [facility] Address: [address] [place] [address] Performed By: #### 5 7021-8 ####[facility]ORATORYCLIA [id number] [address] Lymphocytes (Bld) [#/Vol] 1.69 10*3/uL Normal 1.00-4.00 [facility] Comment on above: Order Comment: Speci men Type: BLOOD SPECIMENOrdering Facility: [facility] Address: [address] [place] [address] Performed By: #### 5 7021-8 ####[facility]ORATORYCLIA [id number] [address] Lymphocytes/100 WBC (Bld) 20.1 % Normal [facility] Comment on above: Order Comment: Speci men Type: BLOOD SPECIMENOrdering Facility: [facility] Address: [address] [place] [address] Performed By: #### 5 7021-8 ####[facility]ATORYCLIA [id number] [address] [place] MCH (RBC) [Entitic mass] 28.5 pg Normal 26.0-34.0 [facility] Comment on above: Order Comment: Speci men Type: BLOOD SPECIMENOrdering Facility: [facility] Address: [address] [place] [address] Performed By: #### 5 7021-8 ####[facility]ORATORYCLIA [id number] [address] [place] MCHC (RBC) [Mass/Vol] 31.2 g/dL Normal 30.5-36.0 [facility] Comment on above: Order Comment: Speci men Type: BLOOD SPECIMENOrdering Facility: [facility] Address: [address] [place] [address] Performed By: #### 5 7021-8 ####[facility]ORATORYCLIA [id number] [address] [place] MCV (RBC) [Entitic vol] 91.3 fL Normal 80.0-100.0 [facility] Comment on above: Order Comment: Speci men Type: BLOOD SPECIMENOrdering Facility: [facility] Address: [address] [place] [address] Performed By: #### 5 7021-8 ####[facility]ORATORYCLIA [id number] [address] [place] Monocytes (Bld) [#/Vol] 0.53 10*3/uL Normal <0.87 [facility] Comment on above: Order Comment: Speci men Type: BLOOD SPECIMENOrdering Facility: [facility] Address: [address] [place] [address] Performed By: #### 5 7021-8 ####[facility]ORATORYCLIA [id number] [address] Monocytes/100 WBC (Bld) 6.3 % Normal [facility] Comment on above: Order Comment: Speci men Type: BLOOD SPECIMENOrdering Facility: [facility] Address: [address] [place] [address] Performed By: #### 5 7021-8 ####[facility]ORATORYCLIA [id number] [address] [place] Neutrophils (Bld) [#/Vol] 5.90 10*3/uL Normal 1.45-7.50 [facility] Comment on above: Order Comment: Speci men Type: BLOOD SPECIMENOrdering Facility: [facility] Address: [address] [address] Performed By: #### 5 7021-8 ####[facility]ORATORYCLIA [id number] [address] [place] Neutrophils/100 WBC (Bld) 70.3 % Normal [facility] Comment on above: Order Comment: Speci men Type: BLOOD SPECIMENOrdering Facility: [facility] Address: [facility] [place] [address] Performed By: #### 5 7021-8 ####[facility]ORATORYCLIA [id number] [address] [place] Nucleated RBC (Bld) [#/Vol] 10*3/uL Normal <0.01 [facility] Comment on above: Order Comment: Speci men Type: BLOOD SPECIMENOrdering Facility: [facility] Address: [address] [place] [address] Performed By: #### 5 7021-8 ####[facility]ORATORYCLIA [id number] [address] [place] Nucleated RBC/100 WBC (Bld) [Ratio] 0.0 /100 WBC Normal [facility] Comment on above: Order Comment: Speci men Type: BLOOD SPECIMENOrdering Facility: [facility] Address: [address] [address] Performed By: #### 5 7021-8 ####[facility]ORATORYCLIA [id number] [address] [place] Platelet mean volume (Bld) [Entitic vol] 9.8 fL Normal 9.0-12.7 [facility] Comment on above: Order Comment: Speci men Type: BLOOD SPECIMENOrdering Facility: [facility] Address: [address] [place], [place] [address] Performed By: #### 5 7021-8 ####[facility]ORATORYCLIA [id number] [address] Platelets (Bld) [#/Vol] 164 10*3/uL Normal 150-400 [facility] Comment on above: Order Comment: Speci men Type: BLOOD SPECIMENOrdering Facility: [facility] Address: [address] [place] [address] Performed By: #### 5 7021-8 ####[facility]ORATORYCLIA [id number] [address] [place] RBC (Bld) [#/Vol] 2.77 10*6/uL Low 4.20-6.00 [facility] Comment on above: Order Comment: Speci men Type: BLOOD SPECIMENOrdering Facility: [facility] Address: [address] [place] [address] Performed By: #### 5 7021-8 ####[facility]ORATORYCLIA [id number] [address] [facility] WBC (Bld) [#/Vol] 8.39 10*3/uL Normal 3.70-11.00 [facility] Comment on above: Order Comment: Speci men Type: BLOOD SPECIMENOrdering Facility: [facility] Address: [address] [place] [address] Performed By: #### 5 7021-8 ####[facility]ORATORYCLIA [id number] [address] BRAIN WO IVCONon 08-13-19 CT BRAIN WO IVCON Normal [facility] CT BRAIN WO IVCON Normal [facility] Magnesium SerPl-mCncon 08-12 Magnesium [Mass/Vol] 2.0 mg/dL Normal 1.7-2.3 [facility] Comment on above: Order Comment: Speci men Type: BLOOD SPECIMENOrdering Facility: [facility] Address: [address] [place] [address] Performed By: #### 2 4321-2, 26268-6, 1 ####[facility]ORATORYCLIA [id number] [address] Phosphate SerPl-mCncon 08-12 Phosphate [Mass/Vol] 2.9 mg/dL Normal 2.7-4.8 [facility] Comment on above: Order Comment: Speci men Type: BLOOD SPECIMENOrdering Facility: [facility] Address: [address] [place] [address] Performed By: #### 2 4321-2, , 27711-04 ####[facility]ORATORYCLIA [id number] [address] THERAPY NTon 08-12-2021 THERAPY NT Normal [facility] THERAPY NT Normal [facility] aPTT PPPon 08-12-2021 aPTT Coag (PPP) [Time] 94.2 s High 23.0-32.4 [facility] Comment on above: Order Comment: Speci men Type: BLOOD SPECIMENOrdering Facility: [facility] Address: [address] [place] [address] Performed By: #### 1 4979-9 ####[facility]ORATORYCLIA [id number] [address] aPTT Coag (PPP) [Time] 84.4 s High 23.0-32.4 [facility] Comment on above: Order Comment: Speci men Type: BLOOD SPECIMENOrdering Facility: [facility] Address: [address] [place] [address] Performed By: #### 1 4979-9 ####[facility]ORATORYCLIA [id number] [address] aPTT Coag (PPP) [Time] 71.3 s High 23.0-32.4 [facility] Comment on above: Order Comment: Speci men Type: BLOOD SPECIMENOrdering Facility: [facility] Address: [address] [place] [address] Performed By: #### 1 4979-9 ####[facility]ORATORYCLIA [id number] [address] [place] ALLIED HEALTHon 08-11-2021 ALLIED HEALTH Normal [facility] CBC W Auto Differential pane l (Bld)on 08-11-2021 Basophils (Bld) [#/Vol] 10*3/uL Normal <0.11 [facility] Comment on above: Order Comment: Speci men Type: BLOOD SPECIMENOrdering Facility: [facility] Address: [address] [place] [address] Performed By: #### 5 7021-8 ####[facility]ORATORYCLIA [id number] [address] Basophils/100 WBC (Bld) 0.2 % Normal [facility] Comment on above: Order Comment: Speci men Type: BLOOD SPECIMENOrdering Facility: [facility] Address: [address] [place] [address] Performed By: #### 5 7021-8 ####[facility]ORATORYCLIA [id number] [address] Differential cell count method Nom (Bld) Auto Normal [facility] Comment on above: Order Comment: Speci men Type: BLOOD SPECIMENOrdering Facility: [facility] Address: [address] [place] [address] Performed By: #### 5 7021-8 ####[facility]ORATORYCLIA [id number] [address] [place] Eosinophils (Bld) [#/Vol] 0.16 10*3/uL Normal <0.46 [facility] Comment on above: Order Comment: Speci men Type: BLOOD SPECIMENOrdering Facility: [facility] Address: [address] [place] [address] Performed By: #### 5 7021-8 ####[facility]ORATORYCLIA [id number] [address] Eosinophils/100 WBC (Bld) 1.8 % Normal [facility] Comment on above: Order Comment: Speci men Type: BLOOD SPECIMENOrdering Facility: [facility] Address: [address] [place] [address] Performed By: #### 5 7021-8 ####[facility]ORATORYCLIA [id number] [address] Erythrocyte distribution width (RBC) [Ratio] 17.3 % High 11.5-15.0 [facility] Comment on above: Order Comment: Speci men Type: BLOOD SPECIMENOrdering Facility: [facility] Address: [address] [place] [address] Performed By: #### 5 7021-8 ####[facility]ORATORYCLIA [id number] [address] Hematocrit (Bld) [Volume fraction] 26.6 % Low 39.0-51.0 [facility] Comment on above: Order Comment: Speci men Type: BLOOD SPECIMENOrdering Facility: [facility] Address: [address] [place] [address] Performed By: #### 5 7021-8 ####[facility]ORATORYCLIA [id number] [address] [facility] Hemoglobin (Bld) [Mass/Vol] 8.2 g/dL Low 13.0-17.0 [facility] Comment on above: Order Comment: Speci men Type: BLOOD SPECIMENOrdering Facility: [facility] Address: [address] [place] [address] Performed By: #### 5 7021-8 ####[facility]ORATORYCLIA [id number] [address] [place] IMMATURE GRAN % 0.6 % Normal [facility] Comment on above: Order Comment: Speci men Type: BLOOD SPECIMENOrdering Facility: [facility] Address: [address] [place] [address] Performed By: #### 5 7021-8 ####[facility]ATORYCLIA [id number] [address] IMMATURE GRAN ABS 0.05 k/uL Normal <0.10 [facility] Comment on above: Order Comment: Speci men Type: BLOOD SPECIMENOrdering Facility: [facility] Address: [address] [place] [address] Performed By: #### 5 7021-8 ####[facility]ORATORYCLIA [id number] [address] Lymphocytes (Bld) [#/Vol] 1.40 10*3/uL Normal 1.00-4.00 [facility] Comment on above: Order Comment: Speci men Type: BLOOD SPECIMENOrdering Facility: [facility] Address: [address] [place] [address] Performed By: #### 5 7021-8 ####[facility]ORATORYCLIA [id number] [address] Lymphocytes/100 WBC (Bld) 15.8 % Normal [facility] Comment on above: Order Comment: Speci men Type: BLOOD SPECIMENOrdering Facility: [facility] Address: [address] [place] [address] Performed By: #### 5 7021-8 ####[facility]ORATORYCLIA [id number] [address] MCH (RBC) [Entitic mass] 28.4 pg Normal 26.0-34.0 [facility] Comment on above: Order Comment: Speci men Type: BLOOD SPECIMENOrdering Facility: [facility] Address: [address] [place] [address] Performed By: #### 5 7021-8 ####[facility]ORATORYCLIA [id number] [address] MCHC (RBC) [Mass/Vol] 30.8 g/dL Normal 30.5-36.0 [facility] Comment on above: Order Comment: Speci men Type: BLOOD SPECIMENOrdering Facility: [facility] Address: [address] [place] [address] Performed By: #### 5 7021-8 ####[facility]ORATORYCLIA [id number] [place] [address] [place] MCV (RBC) [Entitic vol] 92.0 fL Normal 80.0-100.0 [facility] Comment on above: Order Comment: Speci men Type: BLOOD SPECIMENOrdering Facility: [facility] Address: [address] [place] [address] Performed By: #### 5 7021-8 ####[facility]ORATORYCLIA [id number] [address] [place] Monocytes (Bld) [#/Vol] 0.61 10*3/uL Normal <0.87 [facility] Comment on above: Order Comment: Speci men Type: BLOOD SPECIMENOrdering Facility: [facility] Address: [address] [place] [address] Performed By: #### 5 7021-8 ####[facility]ORATORYCLIA [id number] [address] [place] Monocytes/100 WBC (Bld) 6.9 % Normal [facility] Comment on above: Order Comment: Speci men Type: BLOOD SPECIMENOrdering Facility: [facility] Address: [address] [place] [address] Performed By: #### 5 7021-8 ####[facility]ORATORYCLIA [id number] [place] [address] [place] Neutrophils (Bld) [#/Vol] 6.62 10*3/uL Normal 1.45-7.50 [facility] Comment on above: Order Comment: Speci men Type: BLOOD SPECIMENOrdering Facility: [facility] Address: [address] [place] [address] Performed By: #### 5 7021-8 ####[facility]ORATORYCLIA [id number] [address] [place] Neutrophils/100 WBC (Bld) 74.7 % Normal [facility] Comment on above: Order Comment: Speci men Type: BLOOD SPECIMENOrdering Facility: [facility] Address: [address] Performed By: #### 5 7021-8 ####[facility]ORATORYCLIA [id number] [address] Nucleated RBC (Bld) [#/Vol] 10*3/uL Normal <0.01 [facility] Comment on above: Order Comment: Speci men Type: BLOOD SPECIMENOrdering Facility: [facility] Address: [address] [place], [place] [address] Performed By: #### 5 7021-8 ####[facility]ORATORYCLIA [id number] [address] Nucleated RBC/100 WBC (Bld) [Ratio] 0.0 /100 WBC Normal [facility] Comment on above: Order Comment: Speci men Type: BLOOD SPECIMENOrdering Facility: [facility] Address: [address] [place], [place] [address] Performed By: #### 5 7021-8 ####[facility]ORATORYCLIA [id number] [address] Platelet mean volume (Bld) [Entitic vol] 9.8 fL Normal 9.0-12.7 [facility] Comment on above: Order Comment: Speci men Type: BLOOD SPECIMENOrdering Facility: [facility] Address: [address] Performed By: #### 5 7021-8 ####[facility]ORATORYCLIA [id number] [address] Platelets (Bld) [#/Vol] 157 10*3/uL Normal 150-400 [facility] Comment on above: Order Comment: Speci men Type: BLOOD SPECIMENOrdering Facility: [facility] Address: [address] [place], [place] [address] Performed By: #### 5 7021-8 ####[facility]ORATORYCLIA [id number] [address] [facility] RBC (Bld) [#/Vol] 2.89 10*6/uL Low 4.20-6.00 [facility] Comment on above: Order Comment: Speci men Type: BLOOD SPECIMENOrdering Facility: [facility] Address: [address] [place] [address] Performed By: #### 5 7021-8 ####[facility]ORATORYCLIA [id number] [address] [place] WBC (Bld) [#/Vol] 8.86 10*3/uL Normal 3.70-11.00 [facility] Comment on above: Order Comment: Speci men Type: BLOOD SPECIMENOrdering Facility: [facility] Address: [address] [place] [address] Performed By: #### 5 7021-8 ####[facility]ORATORYCLIA [id number] [address] CBC panel Auto (Bld)on 08-11 Erythrocyte distribution width (RBC) [Ratio] 17.2 % High 11.5-15.0 [facility] Comment on above: Order Comment: Speci men Type: BLOOD SPECIMENOrdering Facility: [facility] Address: [address] [place] [address] Performed By: #### 5 8410-2 ####[facility]ORATORYCLIA [id number] [address] Hematocrit (Bld) [Volume fraction] 27.0 % Low 39.0-51.0 [facility] Comment on above: Order Comment: Speci men Type: BLOOD SPECIMENOrdering Facility: [facility] Address: [address] [place] [address] Performed By: #### 5 8410-2 ####[facility]ORATORYCLIA [id number] [address] Hemoglobin (Bld) [Mass/Vol] 8.3 g/dL Low 13.0-17.0 [facility] Comment on above: Order Comment: Speci men Type: BLOOD SPECIMENOrdering Facility: [facility] Address: [address] [place] [address] Performed By: #### 5 8410-2 ####[facility]ORATORYCLIA [id number] [address] MCH (RBC) [Entitic mass] 28.7 pg Normal 26.0-34.0 [facility] Comment on above: Order Comment: Speci men Type: BLOOD SPECIMENOrdering Facility: [facility] Address: [address] [place] [address] Performed By: #### 5 8410-2 ####[facility]ORATORYCLIA [id number] [address] MCHC (RBC) [Mass/Vol] 30.7 g/dL Normal 30.5-36.0 [facility] Comment on above: Order Comment: Speci men Type: BLOOD SPECIMENOrdering Facility: [facility] Address: [address] [place] [address] Performed By: #### 5 8410-2 ####[facility]ORATORYCLIA [id number] [address] MCV (RBC) [Entitic vol] 93.4 fL Normal 80.0-100.0 [facility] Comment on above: Order Comment: Speci men Type: BLOOD SPECIMENOrdering Facility: [facility] Address: [address] [place] [address] Performed By: #### 5 8410-2 ####[facility]ORATORYCLIA [id number] [address] Nucleated RBC (Bld) [#/Vol] 10*3/uL Normal <0.01 [facility] Comment on above: Order Comment: Speci men Type: BLOOD SPECIMENOrdering Facility: [facility] Address: [address] [place] [address] Performed By: #### 5 8410-2 ####[facility]ORATORYCLIA [id number] [address] Platelet mean volume (Bld) [Entitic vol] 9.8 fL Normal 9.0-12.7 [facility] Comment on above: Order Comment: Speci men Type: BLOOD SPECIMENOrdering Facility: [facility] Address: [address] [place] [address] Performed By: #### 5 8410-2 ####[facility] LABORATORYCLIA [id number] [address] STATES [facility] Platelets (Bld) [#/Vol] 169 10*3/uL Normal 150-400 [facility] Comment on above: Order Comment: Speci men Type: BLOOD SPECIMENOrdering Facility: [facility] Address: [address] [place] [address] Performed By: #### 5 8410-2 ####[facility] LABORATORYCLIA [id number] [address] [place] [facility] RBC (Bld) [#/Vol] 2.89 10*6/uL Low 4.20-6.00 [facility] Comment on above: Order Comment: Speci men Type: BLOOD SPECIMENOrdering Facility: [facility] Address: [address] [place] [address] Performed By: #### 5 8410-2 ####[facility] LABORATORYCLIA [id number] [address] [place] [facility] WBC (Bld) [#/Vol] 9.03 10*3/uL Normal 3.70-11.00 [facility] Comment on above: Order Comment: Speci men Type: BLOOD SPECIMENOrdering Facility: [facility] Address: [address] [place] [address] Performed By: #### 5 8410-2 ####[facility] LABORATORYCLIA [id number] [address] BRAIN WO IVCONon 08-12-19 CT BRAIN WO IVCON Normal [facility] PT panel Coag (PPP)on 2021 INR Coag (PPP) [Relative time] 1.0 {INR} Normal 0.9-1.3 [facility] Comment on above: Order Comment: Shira feldman Type: BLOOD SPECIMENOrdering Facility: [facility] Address: [address] [place] [address] Result Comment: Yris min K Antagonist (VKA) Therapeutic Range: INR 2 to 3 (Target INR of 2.5)Note: For patients treated with VKA drugs, such as warfarin, the [place] 2012 Guideline recommends [...] al. Chest 2012, 141:7S-47SNishimpatricia RA, et al. [facility] 2017, 70: 252-289 Performed By: #### 1 4979-9, 19668-1 ####[facility] A2ZlogixCLIA [id number] [place] [address] [place] PT Coag (PPP) [Time] 11.4 s Normal 9.7-13.0 [facility] Comment on above: Order Comment: Shira feldman Type: BLOOD SPECIMENOrdering Facility: [facility] Address: [address] [place] [address] Performed By: #### 1 4979-9, 52663-6 ####[facility] LABORATORYCLIA [id number] [place] [address] [place] THERAPY NTon 08-11-2021 THERAPY NT Normal [facility] US DVT LOWER BILon 2 US DVT LOWER RAINER Normal [facility] US DVT UPPER BILon 2 US DVT UPPER RAINER Normal [facility] aPTT PPPon 08-11-2021 aPTT Coag (PPP) [Time] 26.9 s Normal 23.0-32.4 [facility] Comment on above: Order Comment: Speci men Type: BLOOD SPECIMENOrdering Facility: [facility] Address: [address] [place] [address] Performed By: #### 1 4979-9, 58742-6 ####[facility] LABORATORYCLIA [id number] [place] [address] [place] Basic metabolic 2000 panelon 08-10-2021 Anion gap [Moles/Vol] 11 mmol/L Normal 9-18 [facility] Comment on above: Order Comment: Speci men Type: BLOOD SPECIMENOrdering Facility: [facility] Address: [address] [place] [address] Performed By: #### 2 4321-2 ####[facility] LABORATORYCLIA [id number] [place] [address] [place] Calcium [Mass/Vol] 8.7 mg/dL Normal 8.5-10.2 [facility] Comment on above: Order Comment: Speci men Type: BLOOD SPECIMENOrdering Facility: [facility] Address: [address] [place] [address] Performed By: #### 2 4321-2 ####[facility] LABORATORYCLIA [id number] [address] [place] Chloride [Moles/Vol] 98 mmol/L Normal 97-105 [facility] Comment on above: Order Comment: Speci men Type: BLOOD SPECIMENOrdering Facility: [facility] Address: [address] [place] [address] Performed By: #### 2 4321-2 ####[facility] LABORATORYCLIA [id number] [place] [address] [place] CO2 [Moles/Vol] 28 mmol/L Normal 22-30 [facility] Comment on above: Order Comment: Speci men Type: BLOOD SPECIMENOrdering Facility: [facility] Address: [address] [place] [address] Performed By: #### 2 4321-2 ####[facility] LABORATORYCLIA [id number] [address] [place] [facility] Creatinine [Mass/Vol] 0.59 mg/dL Low 0.73-1.22 [facility] Comment on above: Order Comment: Shira francia Type: BLOOD SPECIMENOrdering Facility: [facility] Address: [address] [place] [address] Performed By: #### 2 4321-2 ####[facility] LABORATORYCLIA [id number] [address] ESTIMATED GLOMERULAR FILTRATION RATE 105 mL/min/1.73m??? Normal >=60 [facility] Comment on above: Order Comment: Shira feldman Type: BLOOD SPECIMENOrdering Facility: [facility] Address: [address] [place] [address] Result Comment: Luzmaria mated Glomerular Filtration Rate [...] actual GFR. Performed By: #### 2 4321-2 ####[facility] LABORATORYCLIA [id number] [address] [place] [facility] Glucose [Mass/Vol] 118 mg/dL High 74-99 [facility] Comment on above: Order Comment: Johncara feldman Type: BLOOD SPECIMENOrdering Facility: [facility] Address: [address] [place] [address] Result Comment: The [place] [employer] (ADA) provides guidance for cutoff [...] Standards of Medical Care in Diabetes 2016, [place] [employer]. Diabetes Care. 2016.39(Suppl 1). Performed By: #### 2 4321-2 ####[facility] LABORATORYCLIA [id number] [place] [address] [place] Potassium [Moles/Vol] 3.7 mmol/L Normal 3.7-5.1 [facility] Comment on above: Order Comment: Speci men Type: BLOOD SPECIMENOrdering Facility: [facility] Address: [address] [place] [address] Performed By: #### 2 4321-2 ####[facility] LABORATORYCLIA [id number] [place] [address] [place] Sodium [Moles/Vol] 137 mmol/L Normal 136-144 [facility] Comment on above: Order Comment: Speci men Type: BLOOD SPECIMENOrdering Facility: [facility] Address: [address] [place] [address] Performed By: #### 2 4321-2 ####[facility] LABORATORYCLIA [id number] [place] [address] [place] Urea nitrogen [Mass/Vol] 23 mg/dL Normal 9-24 [facility] Comment on above: Order Comment: Speci men Type: BLOOD SPECIMENOrdering Facility: [facility] Address: [address] [place] [address] Performed By: #### 2 4321-2 ####[facility]ORATORYCLIA [id number] [place] [address] [place] Anion gap [Moles/Vol] 17 mmol/L Normal 9-18 [facility] Comment on above: Order Comment: Speci men Type: BLOOD SPECIMENOrdering Facility: [facility] Address: [address] [address] Performed By: #### 1 9123-9, 2777-1, 14645-6 ####[facility]ORATORYCLIA [id number] [place] [address] [place] Calcium [Mass/Vol] 7.7 mg/dL Low 8.5-10.2 [facility] Comment on above: Order Comment: Speci men Type: BLOOD SPECIMENOrdering Facility: [facility] Address: [address] [place] [address] Performed By: #### 1 9123-9, 2777-1, 33621-8 ####[facility]ORATORYCLIA [id number] [place] [address] [place] Chloride [Moles/Vol] 86 mmol/L Low 97-105 [facility] Comment on above: Order Comment: Speci men Type: BLOOD SPECIMENOrdering Facility: [facility] Address: [address] [place] [address] Performed By: #### 1 9123-9, 27711-04, 03216-3 ####[facility]ORATORYCLIA [id number] [address] [place] CO2 [Moles/Vol] 24 mmol/L Normal 22-30 [facility] Comment on above: Order Comment: Speci men Type: BLOOD SPECIMENOrdering Facility: [facility] Address: [address] [place] [address] Performed By: #### 1 9123-9, 27711-04, 08931-2 ####[facility]ATORYCLIA [id number] [place] [address] [place] Creatinine [Mass/Vol] 0.53 mg/dL Low 0.73-1.22 [facility] Comment on above: Order Comment: Speci men Type: BLOOD SPECIMENOrdering Facility: [facility] Address: [address] [place] [address] Performed By: #### 1 9123-9, 27771, 06273-8 ####[facility]ORATORYCLIA [id number] [address] [place] [facility] ESTIMATED GLOMERULAR FILTRATION RATE 108 mL/min/1.73m??? Normal >=60 [facility] Comment on above: Order Comment: Shira feldman Type: BLOOD SPECIMENOrdering Facility: [facility] Address: [address] [place], [place] [address] Result Comment: Luzmaria mated Glomerular Filtration Rate [...] GFR. Performed By: #### 1 9123-9, 2777-1, 75170-3 ####[facility]IANACLIA [id number] [place] [address] [place] Glucose [Mass/Vol] 455 mg/dL High 74-99 [facility] Comment on above: Order Comment: Shira feldman Type: BLOOD SPECIMENOrdering Facility: [facility] Address: [address] [place] [address] Result Comment: The [place] Diabetes [employer] (ADA) provides guidance for cutoff [...] Standards of Medical Care in Diabetes 2016, [place] [employer]. Diabetes Care. 2016.39(Suppl 1). Performed By: #### 1 9123-9, 2777-1, 03881-2 ####[facility]ATORYCLIA [id number] [place] [address] [place] Potassium [Moles/Vol] 3.4 mmol/L Low 3.7-5.1 [facility] Comment on above: Order Comment: Shira feldman Type: BLOOD SPECIMENOrdering Facility: [facility] Address: [address] [place] [address] Performed By: #### 1 9123-9, 2777-1, 66283-4 ####[facility]ORATORYCLIA [id number] [address] [place] [facility] Sodium [Moles/Vol] 127 mmol/L Low 136-144 [facility] Comment on above: Order Comment: Speci men Type: BLOOD SPECIMENOrdering Facility: [facility] Address: [address] [place] [address] Performed By: #### 1 9123-9, 2777-, 69993-2 ####[facility]ORATORYCLIA [id number] [address] [place] [facility] Urea nitrogen [Mass/Vol] 21 mg/dL Normal 9-24 [facility] Comment on above: Order Comment: Speci men Type: BLOOD SPECIMENOrdering Facility: [facility] Address: [address] [place] [address] Performed By: #### 1 9123-9, 2777, 88627-5 ####[facility]ORATORYCLIA [id number] [address] OF [facility] CASE MANAGEMon 08-10-2021 CASE MANAGEM Normal [facility] CBC W Auto Differential pane l (Bld)on 08-10-2021 Basophils (Bld) [#/Vol] 0.04 10*3/uL Normal <0.11 [facility] Comment on above: Order Comment: Speci men Type: BLOOD SPECIMENOrdering Facility: [facility] Address: [address] [place] [address] Performed By: #### 5 7021-8 ####[facility]ORATORYCLIA [id number] [address] [place] [facility] Basophils/100 WBC (Bld) 0.4 % Normal [facility] Comment on above: Order Comment: Speci men Type: BLOOD SPECIMENOrdering Facility: [facility] Address: [address] [place] [address] Performed By: #### 5 7021-8 ####[facility]ORATORYCLIA [id number] [address] Differential cell count method Nom (Bld) Auto Normal [facility] Comment on above: Order Comment: Speci men Type: BLOOD SPECIMENOrdering Facility: [facility] Address: [address] [place] [address] Performed By: #### 5 7021-8 ####[facility]ORATORYCLIA [id number] [address] Eosinophils (Bld) [#/Vol] 0.11 10*3/uL Normal <0.46 [facility] Comment on above: Order Comment: Speci men Type: BLOOD SPECIMENOrdering Facility: [facility] Address: [address] [place] [address] Performed By: #### 5 7021-8 ####[facility]ORATORYCLIA [id number] [address] Eosinophils/100 WBC (Bld) 1.1 % Normal [facility] Comment on above: Order Comment: Speci men Type: BLOOD SPECIMENOrdering Facility: [facility] Address: [address] [place] [address] Performed By: #### 5 7021-8 ####[facility]ATORYCLIA [id number] [address] Erythrocyte distribution width (RBC) [Ratio] 17.2 % High 11.5-15.0 [facility] Comment on above: Order Comment: Speci men Type: BLOOD SPECIMENOrdering Facility: [facility] Address: [address] [place] [address] Performed By: #### 5 7021-8 ####[facility]ORATORYCLIA [id number] [address] Hematocrit (Bld) [Volume fraction] 25.5 % Low 39.0-51.0 [facility] Comment on above: Order Comment: Speci men Type: BLOOD SPECIMENOrdering Facility: [facility] Address: [address] [place] [address] Performed By: #### 5 7021-8 ####[facility]ATORYCLIA [id number] [address] Hemoglobin (Bld) [Mass/Vol] 7.9 g/dL Low 13.0-17.0 [facility] Comment on above: Order Comment: Speci men Type: BLOOD SPECIMENOrdering Facility: [facility] Address: [address] [place] [address] Performed By: #### 5 7021-8 ####[facility]ORATORYCLIA [id number] [address] IMMATURE GRAN % 0.4 % Normal [facility] Comment on above: Order Comment: Speci men Type: BLOOD SPECIMENOrdering Facility: [facility] Address: [address] [place] [address] Performed By: #### 5 7021-8 ####[facility]ATORYCLIA [id number] [address] IMMATURE GRAN ABS 0.04 k/uL Normal <0.10 [facility] Comment on above: Order Comment: Speci men Type: BLOOD SPECIMENOrdering Facility: [facility] Address: [address] [place] [address] Performed By: #### 5 7021-8 ####[facility]ORATORYCLIA [id number] [address] [place] Lymphocytes (Bld) [#/Vol] 1.66 10*3/uL Normal 1.00-4.00 [facility] Comment on above: Order Comment: Speci men Type: BLOOD SPECIMENOrdering Facility: [facility] Address: [address] [place] [address] Performed By: #### 5 7021-8 ####[facility]ORATORYCLIA [id number] [address] Lymphocytes/100 WBC (Bld) 16.2 % Normal [facility] Comment on above: Order Comment: Speci men Type: BLOOD SPECIMENOrdering Facility: [facility] Address: [address] [place] [address] Performed By: #### 5 7021-8 ####[facility]ORATORYCLIA [id number] [address] MCH (RBC) [Entitic mass] 28.5 pg Normal 26.0-34.0 [facility] Comment on above: Order Comment: Speci men Type: BLOOD SPECIMENOrdering Facility: [facility] Address: [address] [place] [address] Performed By: #### 5 7021-8 ####[facility]ATORYCLIA [id number] [address] MCHC (RBC) [Mass/Vol] 31.0 g/dL Normal 30.5-36.0 [facility] Comment on above: Order Comment: Speci men Type: BLOOD SPECIMENOrdering Facility: [facility] Address: [address] [place] [address] Performed By: #### 5 7021-8 ####[facility]ATORYCLIA [id number] [address] MCV (RBC) [Entitic vol] 92.1 fL Normal 80.0-100.0 [facility] Comment on above: Order Comment: Speci men Type: BLOOD SPECIMENOrdering Facility: [facility] Address: [address] [place] [address] Performed By: #### 5 7021-8 ####[facility]ORATORYCLIA [id number] [address] Monocytes (Bld) [#/Vol] 0.51 10*3/uL Normal <0.87 [facility] Comment on above: Order Comment: Speci men Type: BLOOD SPECIMENOrdering Facility: [facility] Address: [address] [place] [address] Performed By: #### 5 7021-8 ####[facility]ATORYCLIA [id number] [address] [place] Monocytes/100 WBC (Bld) 5.0 % Normal [facility] Comment on above: Order Comment: Speci men Type: BLOOD SPECIMENOrdering Facility: [facility] Address: [address] [place] [address] Performed By: #### 5 7021-8 ####[facility]ORATORYCLIA [id number] [place] [address] [place] Neutrophils (Bld) [#/Vol] 7.91 10*3/uL High 1.45-7.50 [facility] Comment on above: Order Comment: Speci men Type: BLOOD SPECIMENOrdering Facility: [facility] Address: [address] [place] [address] Performed By: #### 5 7021-8 ####[facility]ORATORYCLIA [id number] [address] [place] Neutrophils/100 WBC (Bld) 76.9 % Normal [facility] Comment on above: Order Comment: Speci men Type: BLOOD SPECIMENOrdering Facility: [facility] Address: [address] [place] [address] Performed By: #### 5 7021-8 ####[facility]ORATORYCLIA [id number] [place] [address] [place] Nucleated RBC (Bld) [#/Vol] 10*3/uL Normal <0.01 [facility] Comment on above: Order Comment: Speci men Type: BLOOD SPECIMENOrdering Facility: [facility] Address: [address] [place] [address] Performed By: #### 5 7021-8 ####[facility]ATORYCLIA [id number] [address] [place] Nucleated RBC/100 WBC (Bld) [Ratio] 0.0 /100 WBC Normal [facility] Comment on above: Order Comment: Speci men Type: BLOOD SPECIMENOrdering Facility: [facility] Address: [address] [place], [place] [address] Performed By: #### 5 7021-8 ####[facility]ORATORYCLIA [id number] [address] Platelet mean volume (Bld) [Entitic vol] 10.3 fL Normal 9.0-12.7 [facility] Comment on above: Order Comment: Speci men Type: BLOOD SPECIMENOrdering Facility: [facility] Address: [address] [place], [place] [address] Performed By: #### 5 7021-8 ####[facility]ATORYCLIA [id number] [address] [place] Platelets (Bld) [#/Vol] 152 10*3/uL Normal 150-400 [facility] Comment on above: Order Comment: Speci men Type: BLOOD SPECIMENOrdering Facility: [facility] Address: [address] [place] [address] Performed By: #### 5 7021-8 ####[facility]ORATORYCLIA [id number] [address] [place] [facility] RBC (Bld) [#/Vol] 2.77 10*6/uL Low 4.20-6.00 [facility] Comment on above: Order Comment: Speci men Type: BLOOD SPECIMENOrdering Facility: [facility] Address: [address] [place] [address] Performed By: #### 5 7021-8 ####[facility]ORATORYCLIA [id number] [address] [place] WBC (Bld) [#/Vol] 10.27 10*3/uL Normal 3.70-11.00 [facility] Comment on above: Order Comment: Speci men Type: BLOOD SPECIMENOrdering Facility: [facility] Address: [address] [place], [place] [address] Performed By: #### 5 7021-8 ####[facility]ORATORYCLIA [id number] [address] Magnesium SerPl-mCncon 08-10 Magnesium [Mass/Vol] 1.8 mg/dL Normal 1.7-2.3 [facility] Comment on above: Order Comment: Speci men Type: BLOOD SPECIMENOrdering Facility: [facility] Address: [address] [place] [address] Performed By: #### 1 9123-9, 2777-1, 49251-3 ####[facility]ORATORYCLIA [id number] [address] NURSING PROGon 08-10-2021 NURSING PROG Normal [facility] NURSING PROG Normal [facility] NUTRITIONon 08-10-2021 NUTRITION Normal [facility] Phosphate SerPl-mCncon 08-10 Phosphate [Mass/Vol] 3.7 mg/dL Normal 2.7-4.8 [facility] Comment on above: Order Comment: Speci men Type: BLOOD SPECIMENOrdering Facility: [facility] Address: [address] [place] [address] Performed By: #### 1 9123-9, 2777-1, 24589-3 ####[facility]ATORYCLIA [id number] [address] ALLIED HEALTHon 08-09-2021 ALLIED HEALTH Normal [facility] ANES POSTPROC EVALon 022 ANES POSTPROC EVAL Normal [facility] ANES PRE-OPon 08-09-2021 ANES PRE-OP Normal [facility] BRIEF OP NOTon 08-09-2021 BRIEF OP NOT Normal [facility] Basic metabolic 2000 panelon 08-09-2021 Anion gap [Moles/Vol] 8 mmol/L Low 9-18 [facility] Comment on above: Order Comment: Speci men Type: BLOOD SPECIMENOrdering Facility: [facility] Address: [address] [place] [address] Performed By: #### 2 4321-2, 03260-1, 2777-1 ####[facility]ATORYCLIA [id number] [address] OF [facility] Calcium [Mass/Vol] 9.2 mg/dL Normal 8.5-10.2 [facility] Comment on above: Order Comment: Speci men Type: BLOOD SPECIMENOrdering Facility: [facility] Address: [address] [place] [address] Performed By: #### 2 4321-2, , 2776-05 ####[facility]ORATORYCLIA [id number] [place] [address] [place] Chloride [Moles/Vol] 97 mmol/L Normal 97-105 [facility] Comment on above: Order Comment: Speci men Type: BLOOD SPECIMENOrdering Facility: [facility] Address: [address] [place] [address] Performed By: #### 2 4321-2, , 2776-05 ####[facility]ATORYCLIA [id number] [address] [place] CO2 [Moles/Vol] 30 mmol/L Normal 22-30 [facility] Comment on above: Order Comment: Speci men Type: BLOOD SPECIMENOrdering Facility: [facility] Address: [address] [place] [address] Performed By: #### 2 4321-2, , 2776-05 ####[facility]ATORYCLIA [id number] [address] [place] Creatinine [Mass/Vol] 0.51 mg/dL Low 0.73-1.22 [facility] Comment on above: Order Comment: Speci men Type: BLOOD SPECIMENOrdering Facility: [facility] Address: [address] [place] [address] Performed By: #### 2 4321-2, , 2776-05 ####[facility]ORATORYCLIA [id number] [address] OF [facility] ESTIMATED GLOMERULAR FILTRATION RATE 110 mL/min/1.73m??? Normal >=60 [facility] Comment on above: Order Comment: Speci men Type: BLOOD SPECIMENOrdering Facility: [facility] Address: [address] [place] [address] Result Comment: Luzmaria mated Glomerular Filtration Rate [...] Performed By: #### 2 4321-2, , 2776-05 ####[facility]ORATORYCLIA [id number] [place] [address] [place] Glucose [Mass/Vol] 106 mg/dL High 74-99 [facility] Comment on above: Order Comment: Shira feldman Type: BLOOD SPECIMENOrdering Facility: [facility] Address: [address] Result Comment: The [place] [employer] (ADA) provides guidance for cutoff [...] Standards of Medical Care in Diabetes 2016, [place] [employer]. Diabetes Care. 2016.39(Suppl 1). Performed By: #### 2 4321-2, , 2776-05 ####[facility]ORATORYCLIA [id number] [place] [address] [place] Potassium [Moles/Vol] 4.1 mmol/L Normal 3.7-5.1 [facility] Comment on above: Order Comment: Shira feldman Type: BLOOD SPECIMENOrdering Facility: [facility] Address: [address] [id number] Performed By: #### 2 4321-2, , 1 ####[facility]ORATORYCLIA [id number] [address] [place] [facility] Sodium [Moles/Vol] 135 mmol/L Low 136-144 [facility] Comment on above: Order Comment: Speci men Type: BLOOD SPECIMENOrdering Facility: [facility] Address: [address] [place] [address] Performed By: #### 2 4321-2, , 2776-05 ####[facility]ORATORYCLIA [id number] [address] [place] [facility] Urea nitrogen [Mass/Vol] 26 mg/dL High 9-24 [facility] Comment on above: Order Comment: Speci men Type: BLOOD SPECIMENOrdering Facility: [facility] Address: [address] [place] [address] Performed By: #### 2 4321-2, , 2776-05 ####[facility]ORATORYCLIA [id number] [address] [place] [facility] CBC W Auto Differential pane l (Bld)on 08-09-2021 Basophils (Bld) [#/Vol] 0.06 10*3/uL Normal <0.11 [facility] Comment on above: Order Comment: Speci men Type: BLOOD SPECIMENOrdering Facility: [facility] Address: [address] [place] [address] Performed By: #### 5 7021-8 ####[facility]ORATORYCLIA [id number] [address] [place] [facility] Basophils/100 WBC (Bld) 0.5 % Normal [facility] Comment on above: Order Comment: Speci men Type: BLOOD SPECIMENOrdering Facility: [facility] Address: [address] [place] [address] Performed By: #### 5 7021-8 ####[facility]ORATORYCLIA [id number] [address] Differential cell count method Nom (Bld) Auto Normal [facility] Comment on above: Order Comment: Speci men Type: BLOOD SPECIMENOrdering Facility: [facility] Address: [address] [place] [address] Performed By: #### 5 7021-8 ####[facility]ORATORYCLIA [id number] [address] Eosinophils (Bld) [#/Vol] 0.42 10*3/uL Normal <0.46 [facility] Comment on above: Order Comment: Speci men Type: BLOOD SPECIMENOrdering Facility: [facility] Address: [address] [place] [address] Performed By: #### 5 7021-8 ####[facility]ORATORYCLIA [id number] [address] Eosinophils/100 WBC (Bld) 3.8 % Normal [facility] Comment on above: Order Comment: Speci men Type: BLOOD SPECIMENOrdering Facility: [facility] Address: [address] [place] [address] Performed By: #### 5 7021-8 ####[facility]ORATORYCLIA [id number] [address] Erythrocyte distribution width (RBC) [Ratio] 17.6 % High 11.5-15.0 [facility] Comment on above: Order Comment: Speci men Type: BLOOD SPECIMENOrdering Facility: [facility] Address: [address] [place] [address] Performed By: #### 5 7021-8 ####[facility]ORATORYCLIA [id number] [address] Hematocrit (Bld) [Volume fraction] 29.3 % Low 39.0-51.0 [facility] Comment on above: Order Comment: Speci men Type: BLOOD SPECIMENOrdering Facility: [facility] Address: [address] [place] [address] Performed By: #### 5 7021-8 ####[facility]ORATORYCLIA [id number] [address] [place] Hemoglobin (Bld) [Mass/Vol] 9.0 g/dL Low 13.0-17.0 [facility] Comment on above: Order Comment: Speci men Type: BLOOD SPECIMENOrdering Facility: [facility] Address: [address] [place] [address] Performed By: #### 5 7021-8 ####[facility]ORATORYCLIA [id number] [address] OF [facility] IMMATURE GRAN % 0.5 % Normal [facility] Comment on above: Order Comment: Speci men Type: BLOOD SPECIMENOrdering Facility: [facility] Address: [address] [place] [address] Performed By: #### 5 7021-8 ####[facility]ORATORYCLIA [id number] [address] IMMATURE GRAN ABS 0.05 k/uL Normal <0.10 [facility] Comment on above: Order Comment: Speci men Type: BLOOD SPECIMENOrdering Facility: [facility] Address: [address] [place] [address] Performed By: #### 5 7021-8 ####[facility]ORATORYCLIA [id number] [address] [place] Lymphocytes (Bld) [#/Vol] 2.00 10*3/uL Normal 1.00-4.00 [facility] Comment on above: Order Comment: Speci men Type: BLOOD SPECIMENOrdering Facility: [facility] Address: [address] [place] [address] Performed By: #### 5 7021-8 ####[facility]ORATORYCLIA [id number] [address] Lymphocytes/100 WBC (Bld) 18.1 % Normal [facility] Comment on above: Order Comment: Speci men Type: BLOOD SPECIMENOrdering Facility: [facility] Address: [address] [place] [address] Performed By: #### 5 7021-8 ####[facility]ORATORYCLIA [id number] [address] MCH (RBC) [Entitic mass] 28.1 pg Normal 26.0-34.0 [facility] Comment on above: Order Comment: Speci men Type: BLOOD SPECIMENOrdering Facility: [facility] Address: [address] [place] [address] Performed By: #### 5 7021-8 ####[facility] LABORATORYCLIA [id number] [address] MCHC (RBC) [Mass/Vol] 30.7 g/dL Normal 30.5-36.0 [facility] Comment on above: Order Comment: Speci men Type: BLOOD SPECIMENOrdering Facility: [facility] Address: [address] [place] [address] Performed By: #### 5 7021-8 ####[facility] LABORATORYCLIA [id number] [address] MCV (RBC) [Entitic vol] 91.6 fL Normal 80.0-100.0 [facility] Comment on above: Order Comment: Speci men Type: BLOOD SPECIMENOrdering Facility: [facility] Address: [address] [place] [address] Performed By: #### 5 7021-8 ####[facility] LABORATORYCLIA [id number] [address] Monocytes (Bld) [#/Vol] 0.68 10*3/uL Normal <0.87 [facility] Comment on above: Order Comment: Speci men Type: BLOOD SPECIMENOrdering Facility: [facility] Address: [address] [place] [address] Performed By: #### 5 7021-8 ####[facility] LABORATORYCLIA [id number] [address] Monocytes/100 WBC (Bld) 6.2 % Normal [facility] Comment on above: Order Comment: Speci men Type: BLOOD SPECIMENOrdering Facility: [facility] Address: [address] [place] [address] Performed By: #### 5 7021-8 ####[facility] LABORATORYCLIA [id number] [address] [place] Neutrophils (Bld) [#/Vol] 7.82 10*3/uL High 1.45-7.50 [facility] Comment on above: Order Comment: Speci men Type: BLOOD SPECIMENOrdering Facility: [facility] Address: [address] [place] [address] Performed By: #### 5 7021-8 ####[facility]ORATORYCLIA [id number] [address] [place] Neutrophils/100 WBC (Bld) 70.9 % Normal [facility] Comment on above: Order Comment: Speci men Type: BLOOD SPECIMENOrdering Facility: [facility] Address: [address] [place] [address] Performed By: #### 5 7021-8 ####[facility] LABORATORYCLIA [id number] [address] [place] Nucleated RBC (Bld) [#/Vol] 10*3/uL Normal <0.01 [facility] Comment on above: Order Comment: Speci men Type: BLOOD SPECIMENOrdering Facility: [facility] Address: [address] [place] [address] Performed By: #### 5 7021-8 ####[facility] LABORATORYCLIA [id number] [address] [place] Nucleated RBC/100 WBC (Bld) [Ratio] 0.0 /100 WBC Normal [facility] Comment on above: Order Comment: Speci men Type: BLOOD SPECIMENOrdering Facility: [facility] Address: [address] [place] [address] Performed By: #### 5 7021-8 ####[facility]ORATORYCLIA [id number] [address] STATES OF [facility] Platelet mean volume (Bld) [Entitic vol] 10.1 fL Normal 9.0-12.7 [facility] Comment on above: Order Comment: Speci men Type: BLOOD SPECIMENOrdering Facility: [facility] Address: [address] [place] [address] Performed By: #### 5 7021-8 ####[facility] LABORATORYCLIA [id number] [place] [address] [place] Platelets (Bld) [#/Vol] 160 10*3/uL Normal 150-400 [facility] Comment on above: Order Comment: Speci men Type: BLOOD SPECIMENOrdering Facility: [facility] Address: [address] [place] [address] Performed By: #### 5 7021-8 ####[facility] LABORATORYCLIA [id number] [address] [place] RBC (Bld) [#/Vol] 3.20 10*6/uL Low 4.20-6.00 [facility] Comment on above: Order Comment: Speci men Type: BLOOD SPECIMENOrdering Facility: [facility] Address: [address] [place] [address] Performed By: #### 5 7021-8 ####[facility] LABORATORYCLIA [id number] [place] [address] [place] WBC (Bld) [#/Vol] 11.03 10*3/uL High 3.70-11.00 [facility] Comment on above: Order Comment: Speci men Type: BLOOD SPECIMENOrdering Facility: [facility] Address: [address] [place] [address] Performed By: #### 5 7021-8 ####[facility] LABORATORYCLIA [id number] [address] OF [facility] CONSULT PROGon 08-09-2021 CONSULT PROG Normal [facility] CT BRAIN WO IVCONon 08-10-[address] BRAIN WO IVCON Normal [facility] CT BRAIN WO IVCON Normal [facility] Magnesium SerPl-mCncon 08-09 Magnesium [Mass/Vol] 2.0 mg/dL Normal 1.7-2.3 [facility] Comment on above: Order Comment: Shira feldman Type: BLOOD SPECIMENOrdering Facility: [facility] Address: [address] [place] [address] Performed By: #### 2 4321-2, 95261-5, 2777-1 ####[facility] LABORATORYCLIA [id number] [address] STATES OF [facility] NURSING PROGon 08-09-2021 NURSING PROG Normal [facility] OPERATIVE NOon 08-09-2021 OPERATIVE NO Normal [facility] PT panel Coag (PPP)on 2021 INR Coag (PPP) [Relative time] 1.1 {INR} Normal 0.9-1.3 [facility] Comment on above: Order Comment: Shira feldman Type: BLOOD SPECIMENOrdering Facility: [facility] Address: [address] [place] [address] Result Comment: Yris min K Antagonist (VKA) Therapeutic Range: INR 2 to 3 (Target INR of 2.5)Note: For patients treated with VKA drugs, such as warfarin, the [place] [employer] 2012 Guideline recommends [...] 3).Jeffy GUZMAN, et al. Chest 2012, 141:7S-47SAlba MURRY, et al. [facility] 2017, 70: 252-289 Performed By: #### 3 4528-0, 79044-3 ####[facility] LABORATORYCLIA [id number] [address] [place] PT Coag (PPP) [Time] 11.7 s Normal 9.7-13.0 [facility] Comment on above: Order Comment: Speci men Type: BLOOD SPECIMENOrdering Facility: [facility] Address: [address] [place] [address] Performed By: #### 3 4528-0, 56463-9 ####[facility] LABORATORYCLIA [id number] [address] [place] Phosphate SerPl-mCncon 08-09 Phosphate [Mass/Vol] 4.0 mg/dL Normal 2.7-4.8 [facility] Comment on above: Order Comment: Speci men Type: BLOOD SPECIMENOrdering Facility: [facility] Address: [address] [place] [address] Performed By: #### 2 4321-2, 91911-1, 2777-1 ####[facility] LABORATORYCLIA [id number] [address] OF [facility] THERAPY NTon 08-09-2021 THERAPY NT Normal [facility] THERAPY NT Normal [facility] TYPE AND SCREENon 08-09-2021 ABO O Normal [facility] Comment on above: Order Comment: Speci men Type: BLOOD SPECIMENOrdering Facility: [facility] Address: [address] [place] [address] Performed By: #### T SCR ####[facility] BLOOD BANKCLIA [id number] [address] [place] HISTORICAL AB SCR STATUS Negative Normal [facility] Comment on above: Order Comment: Speci men Type: BLOOD SPECIMENOrdering Facility: [facility] Address: [address] [place] [address] Performed By: #### T SCR ####[facility] BLOOD BANKCLIA [id number] [address] [place] Rh Nom (Bld) Positive Normal [facility] Comment on above: Order Comment: Speci men Type: BLOOD SPECIMENOrdering Facility: [facility] Address: [address] [place] [address] Performed By: #### T SCR ####[facility] BLOOD BANKCLIA [id number] [place] [id number] [facility] TYPE AND SCREEN EXPIRATION 08/12/2021 23:59 Normal [facility] Comment on above: Order Comment: Speci men Type: BLOOD SPECIMENOrdering Facility: [facility] Address: [address] [place] [address] Performed By: #### T SCR ####[facility] BLOOD BANKCLIA [id number] [address] XR ABD 2V SUPINE W UPR/DECUB /CTLon 08-09-2021 XR ABD 2V SUPINE W UPR/DECUB/CTL Normal [facility] XR CHEST 1V FRONTALon 2021 XR CHEST 1V FRONTAL Normal [facility] XR NECK SOFT TISSUE 2V AP/LA Ton 08-09-2021 XR NECK SOFT TISSUE 2V AP/LAT Normal [facility] XR SKULL 2V AP/LATon 022 XR SKULL 2V AP/LAT Normal [facility] aPTT PPPon 08-09-2021 aPTT Coag (PPP) [Time] 26.8 s Normal 23.0-32.4 [facility] Comment on above: Order Comment: Speci men Type: BLOOD SPECIMENOrdering Facility: [facility] Address: [address] [place] [address] Performed By: #### 3 4528-0, 58956-1 ####[facility] LABORATORYCLIA [id number] [address] CASE MANAGEMon 08-08-2021 CASE MANAGEM Normal [facility] CBC W Auto Differential pane l (Bld)on 08-08-2021 Basophils (Bld) [#/Vol] 0.05 10*3/uL Normal <0.11 [facility] Comment on above: Order Comment: Speci men Type: BLOOD SPECIMENOrdering Facility: [facility] Address: [address] [place] [address] Performed By: #### 5 7021-8 ####[facility]ORATORYCLIA [id number] [address] Basophils/100 WBC (Bld) 0.5 % Normal [facility] Comment on above: Order Comment: Speci men Type: BLOOD SPECIMENOrdering Facility: [facility] Address: [address] [place] [address] Performed By: #### 5 7021-8 ####[facility] LABORATORYCLIA [id number] [address] Differential cell count method Nom (Bld) Auto Normal [facility] Comment on above: Order Comment: Speci men Type: BLOOD SPECIMENOrdering Facility: [facility] Address: [address] [place] [address] Performed By: #### 5 7021-8 ####[facility] LABORATORYCLIA [id number] [address] [place] Eosinophils (Bld) [#/Vol] 0.17 10*3/uL Normal <0.46 [facility] Comment on above: Order Comment: Speci men Type: BLOOD SPECIMENOrdering Facility: [facility] Address: [address] [place] [address] Performed By: #### 5 7021-8 ####[facility] LABORATORYCLIA [id number] [address] Eosinophils/100 WBC (Bld) 1.6 % Normal [facility] Comment on above: Order Comment: Speci men Type: BLOOD SPECIMENOrdering Facility: [facility] Address: [address] [place] [address] Performed By: #### 5 7021-8 ####[facility]ORATORYCLIA [id number] [address] [place] Erythrocyte distribution width (RBC) [Ratio] 17.8 % High 11.5-15.0 [facility] Comment on above: Order Comment: Speci men Type: BLOOD SPECIMENOrdering Facility: [facility] Address: [address] [place] [address] Performed By: #### 5 7021-8 ####[facility] LABORATORYCLIA [id number] [address] Hematocrit (Bld) [Volume fraction] 29.6 % Low 39.0-51.0 [facility] Comment on above: Order Comment: Speci men Type: BLOOD SPECIMENOrdering Facility: [facility] Address: [address] [place] [address] Performed By: #### 5 7021-8 ####[facility] LABORATORYCLIA [id number] [address] Hemoglobin (Bld) [Mass/Vol] 9.0 g/dL Low 13.0-17.0 [facility] Comment on above: Order Comment: Speci men Type: BLOOD SPECIMENOrdering Facility: [facility] Address: [address] [place] [address] Performed By: #### 5 7021-8 ####[facility] LABORATORYCLIA [id number] [address] IMMATURE GRAN % 0.5 % Normal [facility] Comment on above: Order Comment: Speci men Type: BLOOD SPECIMENOrdering Facility: [facility] Address: [address] [place] [address] Performed By: #### 5 7021-8 ####[facility] LABORATORYCLIA [id number] [address] IMMATURE GRAN ABS 0.05 k/uL Normal <0.10 [facility] Comment on above: Order Comment: Speci men Type: BLOOD SPECIMENOrdering Facility: [facility] Address: [address] [place] [address] Performed By: #### 5 7021-8 ####[facility] LABORATORYCLIA [id number] [address] Lymphocytes (Bld) [#/Vol] 1.93 10*3/uL Normal 1.00-4.00 [facility] Comment on above: Order Comment: Speci men Type: BLOOD SPECIMENOrdering Facility: [facility] Address: [address] [place] [address] Performed By: #### 5 7021-8 ####[facility] LABORATORYCLIA [id number] [address] Lymphocytes/100 WBC (Bld) 18.2 % Normal [facility] Comment on above: Order Comment: Speci men Type: BLOOD SPECIMENOrdering Facility: [facility] Address: [address] [place] [address] Performed By: #### 5 7021-8 ####[facility] LABORATORYCLIA [id number] [address] STATES OF [facility] MCH (RBC) [Entitic mass] 28.1 pg Normal 26.0-34.0 [facility] Comment on above: Order Comment: Speci men Type: BLOOD SPECIMENOrdering Facility: [facility] Address: [address] [place] [address] Performed By: #### 5 7021-8 ####[facility] LABORATORYCLIA [id number] [address] MCHC (RBC) [Mass/Vol] 30.4 g/dL Low 30.5-36.0 [facility] Comment on above: Order Comment: Speci men Type: BLOOD SPECIMENOrdering Facility: [facility] Address: [address] [place] [address] Performed By: #### 5 7021-8 ####[facility] LABORATORYCLIA [id number] [address] MCV (RBC) [Entitic vol] 92.5 fL Normal 80.0-100.0 [facility] Comment on above: Order Comment: Speci men Type: BLOOD SPECIMENOrdering Facility: [facility] Address: [address] [place] [address] Performed By: #### 5 7021-8 ####[facility]ORATORYCLIA [id number] [place] [address] [place] Monocytes (Bld) [#/Vol] 0.75 10*3/uL Normal <0.87 [facility] Comment on above: Order Comment: Speci men Type: BLOOD SPECIMENOrdering Facility: [facility] Address: [address] [place] [address] Performed By: #### 5 7021-8 ####[facility]ORATORYCLIA [id number] [place] [address] [place] Monocytes/100 WBC (Bld) 7.1 % Normal [facility] Comment on above: Order Comment: Speci men Type: BLOOD SPECIMENOrdering Facility: [facility] Address: [address] [place] [address] Performed By: #### 5 7021-8 ####[facility] LABORATORYCLIA [id number] [place] [address] [place] Neutrophils (Bld) [#/Vol] 7.65 10*3/uL High 1.45-7.50 [facility] Comment on above: Order Comment: Speci men Type: BLOOD SPECIMENOrdering Facility: [facility] Address: [address] [place] [address] Performed By: #### 5 7021-8 ####[facility] LABORATORYCLIA [id number] [address] [place] Neutrophils/100 WBC (Bld) 72.1 % Normal [facility] Comment on above: Order Comment: Speci men Type: BLOOD SPECIMENOrdering Facility: [facility] Address: [address] [place] [address] Performed By: #### 5 7021-8 ####[facility] LABORATORYCLIA [id number] [place] [address] [place] Nucleated RBC (Bld) [#/Vol] 10*3/uL Normal <0.01 [facility] Comment on above: Order Comment: Speci men Type: BLOOD SPECIMENOrdering Facility: [facility] Address: [address] [place] [address] Performed By: #### 5 7021-8 ####[facility] LABORATORYCLIA [id number] [address] STATES [facility] Nucleated RBC/100 WBC (Bld) [Ratio] 0.0 /100 WBC Normal [facility] Comment on above: Order Comment: Speci men Type: BLOOD SPECIMENOrdering Facility: [facility] Address: [address] [place] [address] Performed By: #### 5 7021-8 ####[facility] LABORATORYCLIA [id number] [address] [place] Platelet mean volume (Bld) [Entitic vol] 9.8 fL Normal 9.0-12.7 [facility] Comment on above: Order Comment: Speci men Type: BLOOD SPECIMENOrdering Facility: [facility] Address: [address] [place] [address] Performed By: #### 5 7021-8 ####[facility] LABORATORYCLIA [id number] [address] [place] Platelets (Bld) [#/Vol] 175 10*3/uL Normal 150-400 [facility] Comment on above: Order Comment: Speci men Type: BLOOD SPECIMENOrdering Facility: [facility] Address: [address] [place] [address] Performed By: #### 5 7021-8 ####[facility] LABORATORYCLIA [id number] [place] [address] [place] RBC (Bld) [#/Vol] 3.20 10*6/uL Low 4.20-6.00 [facility] Comment on above: Order Comment: Speci men Type: BLOOD SPECIMENOrdering Facility: [facility] Address: [address] [place] [address] Performed By: #### 5 7021-8 ####[facility] LABORATORYCLIA [id number] [address] [place] WBC (Bld) [#/Vol] 10.60 10*3/uL Normal 3.70-11.00 [facility] Comment on above: Order Comment: Speci men Type: BLOOD SPECIMENOrdering Facility: [facility] Address: [address] [place] [address] Performed By: #### 5 7021-8 ####[facility] LABORATORYCLIA [id number] [address] OF [facility] CT BRAIN WO IVCONon 08-09-19 CT BRAIN WO IVCON Normal [facility] NURSING PROGon 08-08-2021 NURSING PROG Normal [facility] Prealbumin [Mass/Vol]on Prealbumin Nephelometry [Mass/Vol] 29 mg/dL Normal - [facility] Comment on above: Order Comment: Speci men Type: BLOOD SPECIMENOrdering Facility: [facility] Address: [address] [place] [address] Performed By: #### 1 4338-8 ####[facility] LABORATORYCLIA [id number] [address] [place] SARS-CoV-2 RNA Resp Ql MEGAN+p robeon 08-08-2021 SARS-CoV-2 (COVID-19) RNA MEGAN+probe Ql (Resp) COVID 19 RESULT: SARS-CoV-2 (Agent of COVID-19) Not Detected by RT-PCR or equivalent method. This test has been authorized by FDA under an Emergency Use Authorization (EUA). Normal [facility] Comment on above: Performed By: #### 9 4500-6 ####[facility] LABORATORYCLIA [id number] [address] [place] ALLIED HEALTHon 08-07-2021 ALLIED HEALTH Normal [facility] Basic metabolic 2000 panelon 08-07-2021 Anion gap [Moles/Vol] 9 mmol/L Normal 9-18 [facility] Comment on above: Order Comment: Speci men Type: BLOOD SPECIMENOrdering Facility: [facility] Address: [address] [place] [address] Performed By: #### 2 4321-2, 2776-, , HFP ####[facility] LABORATORYCLIA [id number] [place] [address] [place] Calcium [Mass/Vol] 9.4 mg/dL Normal 8.5-10.2 [facility] Comment on above: Order Comment: Speci men Type: BLOOD SPECIMENOrdering Facility: [facility] Address: [address] [place], [place] [address] Performed By: #### 2 4321-2, 2776-, , HFP ####[facility] LABORATORYCLIA [id number] [place] [address] [place] Chloride [Moles/Vol] 98 mmol/L Normal 97-105 [facility] Comment on above: Order Comment: Speci men Type: BLOOD SPECIMENOrdering Facility: [facility] Address: [address] [place], [place] [address] Performed By: #### 2 4321-2, 2776-05, , HFP ####[facility] LABORATORYCLIA [id number] [place] [address] [place] CO2 [Moles/Vol] 29 mmol/L Normal 22-30 [facility] Comment on above: Order Comment: Speci men Type: BLOOD SPECIMENOrdering Facility: [facility] Address: [address] [place], [place] [address] Performed By: #### 2 4321-2, 2776-05, , HFP ####[facility] LABORATORYCLIA [id number] [place] [address] [place] Creatinine [Mass/Vol] 0.67 mg/dL Low 0.73-1.22 [facility] Comment on above: Order Comment: Speci men Type: BLOOD SPECIMENOrdering Facility: [facility] Address: [address] [place], [place] [address] Performed By: #### 2 4321-2, 2776-, , HFP ####[facility] CENTERIA [id number] [place] [address] [place] ESTIMATED GLOMERULAR FILTRATION RATE 101 mL/min/1.73m??? Normal >=60 [facility] Comment on above: Order Comment: Shira feldman Type: BLOOD SPECIMENOrdering Facility: [facility] Address: [address] [place], [place] [address] Result Comment: Luzmaria mated Glomerular Filtration Rate [...] Performed By: #### 2 4321-2, 2777-1, , [facility] ####[facility] CENTERIA [id number] [place] [id number] [place] Glucose [Mass/Vol] 117 mg/dL High 74-99 [facility] Comment on above: Order Comment: Johncara feldman Type: BLOOD SPECIMENOrdering Facility: [facility] Address: [address] [place] [address] Result Comment: The [place] [employer] (ADA) provides guidance for cutoff [...] Standards of Medical Care in Diabetes 2016, [place] [employer]. Diabetes Care. 2016.39(Suppl 1). Performed By: #### 2 4321-2, 2777-1, , [facility] ####[facility] CENTERIA [id number] [place] [address] [place] Potassium [Moles/Vol] 4.1 mmol/L Normal 3.7-5.1 [facility] Comment on above: Order Comment: Speci men Type: BLOOD SPECIMENOrdering Facility: [facility] Address: [address] [place] [address] Performed By: #### 2 4321-2, 2777-1, , HFP ####[facility] LABORATORYCLIA [id number] [place] [address] [place] Sodium [Moles/Vol] 136 mmol/L Normal 136-144 [facility] Comment on above: Order Comment: Speci men Type: BLOOD SPECIMENOrdering Facility: [facility] Address: [address] [place] [address] Performed By: #### 2 4321-2, 2776-, , HFP ####[facility] LABORATORYCLIA [id number] [address] [place] Urea nitrogen [Mass/Vol] 31 mg/dL High 9-24 [facility] Comment on above: Order Comment: Speci men Type: BLOOD SPECIMENOrdering Facility: [facility] Address: [address] [place] [address] Performed By: #### 2 4321-2, 2776-05, , HFP ####[facility] LABORATORYCLIA [id number] [place] [address] [place] CBC W Auto Differential pane l (Bld)on 08-07-2021 Basophils (Bld) [#/Vol] 0.03 10*3/uL Normal <0.11 [facility] Comment on above: Order Comment: Speci men Type: BLOOD SPECIMENOrdering Facility: [facility] Address: [address] [place] [address] Performed By: #### 5 7021-8 ####[facility] LABORATORYCLIA [id number] [address] [place] Basophils/100 WBC (Bld) 0.3 % Normal [facility] Comment on above: Order Comment: Speci men Type: BLOOD SPECIMENOrdering Facility: [facility] Address: [address] [place] [address] Performed By: #### 5 7021-8 ####[facility] LABORATORYCLIA [id number] [address] Differential cell count method Nom (Bld) Auto Normal [facility] Comment on above: Order Comment: Speci men Type: BLOOD SPECIMENOrdering Facility: [facility] Address: [address] [place] [address] Performed By: #### 5 7021-8 ####[facility] LABORATORYCLIA [id number] [address] Eosinophils (Bld) [#/Vol] 0.16 10*3/uL Normal <0.46 [facility] Comment on above: Order Comment: Speci men Type: BLOOD SPECIMENOrdering Facility: [facility] Address: [address] [place] [address] Performed By: #### 5 7021-8 ####[facility] LABORATORYCLIA [id number] [address] Eosinophils/100 WBC (Bld) 1.6 % Normal [facility] Comment on above: Order Comment: Speci men Type: BLOOD SPECIMENOrdering Facility: [facility] Address: [address] [place] [address] Performed By: #### 5 7021-8 ####[facility] LABORATORYCLIA [id number] [address] Erythrocyte distribution width (RBC) [Ratio] 18.1 % High 11.5-15.0 [facility] Comment on above: Order Comment: Speci men Type: BLOOD SPECIMENOrdering Facility: [facility] Address: [address] [place] [address] Performed By: #### 5 7021-8 ####[facility] LABORATORYCLIA [id number] [address] Hematocrit (Bld) [Volume fraction] 30.6 % Low 39.0-51.0 [facility] Comment on above: Order Comment: Speci men Type: BLOOD SPECIMENOrdering Facility: [facility] Address: [address] [place] [address] Performed By: #### 5 7021-8 ####[facility] LABORATORYCLIA [id number] [address] [place] OF [facility] Hemoglobin (Bld) [Mass/Vol] 9.4 g/dL Low 13.0-17.0 [facility] Comment on above: Order Comment: Speci men Type: BLOOD SPECIMENOrdering Facility: [facility] Address: [address] [place] [address] Performed By: #### 5 7021-8 ####[facility] LABORATORYCLIA [id number] [address] OF [facility] IMMATURE GRAN % 0.4 % Normal [facility] Comment on above: Order Comment: Speci men Type: BLOOD SPECIMENOrdering Facility: [facility] Address: [address] [place] [address] Performed By: #### 5 7021-8 ####[facility] LABORATORYCLIA [id number] [address] IMMATURE GRAN ABS 0.04 k/uL Normal <0.10 [facility] Comment on above: Order Comment: Speci men Type: BLOOD SPECIMENOrdering Facility: [facility] Address: [address] [place] [address] Performed By: #### 5 7021-8 ####[facility] LABORATORYCLIA [id number] [address] [place] Lymphocytes (Bld) [#/Vol] 2.05 10*3/uL Normal 1.00-4.00 [facility] Comment on above: Order Comment: Speci men Type: BLOOD SPECIMENOrdering Facility: [facility] Address: [address] [place] [address] Performed By: #### 5 7021-8 ####[facility] LABORATORYCLIA [id number] [address] Lymphocytes/100 WBC (Bld) 20.2 % Normal [facility] Comment on above: Order Comment: Speci men Type: BLOOD SPECIMENOrdering Facility: [facility] Address: [address] [place] [address] Performed By: #### 5 7021-8 ####[facility] LABORATORYCLIA [id number] [address] MCH (RBC) [Entitic mass] 28.8 pg Normal 26.0-34.0 [facility] Comment on above: Order Comment: Speci men Type: BLOOD SPECIMENOrdering Facility: [facility] Address: [address] [place] [address] Performed By: #### 5 7021-8 ####[facility] LABORATORYCLIA [id number] [address] MCHC (RBC) [Mass/Vol] 30.7 g/dL Normal 30.5-36.0 [facility] Comment on above: Order Comment: Speci men Type: BLOOD SPECIMENOrdering Facility: [facility] Address: [address] [place] [address] Performed By: #### 5 7021-8 ####[facility] LABORATORYCLIA [id number] [address] OF [facility] MCV (RBC) [Entitic vol] 93.9 fL Normal 80.0-100.0 [facility] Comment on above: Order Comment: Speci men Type: BLOOD SPECIMENOrdering Facility: [facility] Address: [address] [place] [address] Performed By: #### 5 7021-8 ####[facility] LABORATORYCLIA [id number] [address] Monocytes (Bld) [#/Vol] 0.64 10*3/uL Normal <0.87 [facility] Comment on above: Order Comment: Speci men Type: BLOOD SPECIMENOrdering Facility: [facility] Address: [address] [address] Performed By: #### 5 7021-8 ####[facility] LABORATORYCLIA [id number] [address] [place] Monocytes/100 WBC (Bld) 6.3 % Normal [facility] Comment on above: Order Comment: Speci men Type: BLOOD SPECIMENOrdering Facility: [facility] Address: [address] [place] [address] Performed By: #### 5 7021-8 ####[facility] LABORATORYCLIA [id number] [place] [address] [place] Neutrophils (Bld) [#/Vol] 7.22 10*3/uL Normal 1.45-7.50 [facility] Comment on above: Order Comment: Speci men Type: BLOOD SPECIMENOrdering Facility: [facility] Address: [address] [place] [address] Performed By: #### 5 7021-8 ####[facility] LABORATORYCLIA [id number] [address] [place] Neutrophils/100 WBC (Bld) 71.2 % Normal [facility] Comment on above: Order Comment: Speci men Type: BLOOD SPECIMENOrdering Facility: [facility] Address: [address] [place] [address] Performed By: #### 5 7021-8 ####[facility] LABORATORYCLIA [id number] [place] [address] [place] Nucleated RBC (Bld) [#/Vol] 10*3/uL Normal <0.01 [facility] Comment on above: Order Comment: Speci men Type: BLOOD SPECIMENOrdering Facility: [facility] Address: [address] [place] [address] Performed By: #### 5 7021-8 ####[facility] LABORATORYCLIA [id number] [address] [place] Nucleated RBC/100 WBC (Bld) [Ratio] 0.0 /100 WBC Normal [facility] Comment on above: Order Comment: Speci men Type: BLOOD SPECIMENOrdering Facility: [facility] Address: [address] [place] [address] Performed By: #### 5 7021-8 ####[facility] LABORATORYCLIA [id number] [address] [place] Platelet mean volume (Bld) [Entitic vol] 9.9 fL Normal 9.0-12.7 [facility] Comment on above: Order Comment: Speci men Type: BLOOD SPECIMENOrdering Facility: [facility] Address: [address] [place] [address] Performed By: #### 5 7021-8 ####[facility] LABORATORYCLIA [id number] [address] [place] Platelets (Bld) [#/Vol] 227 10*3/uL Normal 150-400 [facility] Comment on above: Order Comment: Speci men Type: BLOOD SPECIMENOrdering Facility: [facility] Address: [address] [place] [address] Performed By: #### 5 7021-8 ####[facility] LABORATORYCLIA [id number] [address] [place] RBC (Bld) [#/Vol] 3.26 10*6/uL Low 4.20-6.00 [facility] Comment on above: Order Comment: Speci men Type: BLOOD SPECIMENOrdering Facility: [facility] Address: [address] [place], [place] [address] Performed By: #### 5 7021-8 ####[facility] LABORATORYCLIA [id number] [address] [place] WBC (Bld) [#/Vol] 10.14 10*3/uL Normal 3.70-11.00 [facility] Comment on above: Order Comment: Speci men Type: BLOOD SPECIMENOrdering Facility: [facility] Address: [address] [place] [address] Performed By: #### 5 7021-8 ####[facility] LABORATORYCLIA [id number] [address] OF [facility] CT BRAIN WO IVCONon 08-08-19 CT BRAIN WO IVCON Normal [facility] HEPATIC FUNCTION PNLon 08-07 Albumin [Mass/Vol] 3.6 g/dL Low 3.9-4.9 [facility] Comment on above: Order Comment: Speci men Type: BLOOD SPECIMENOrdering Facility: [facility] Address: [address] [place] [address] Performed By: #### 2 4321-2, 2777-1, , HFP ####[facility] LABORATORYCLIA [id number] [address] [place] [facility] ALP [Catalytic activity/Vol] 124 U/L High 38-113 [facility] Comment on above: Order Comment: Speci men Type: BLOOD SPECIMENOrdering Facility: [facility] Address: [address] [place] [address] Performed By: #### 2 4321-2, 277-1, , HFP ####[facility] LABORATORYCLIA [id number] [address] [place] [facility] ALT With P-5'-P [Catalytic activity/Vol] 29 U/L Normal 10-54 [facility] Comment on above: Order Comment: Speci men Type: BLOOD SPECIMENOrdering Facility: [facility] Address: [address] [place] [address] Performed By: #### 2 4321-2, 2777-1, , HFP ####[facility] LABORATORYCLIA [id number] [address] [place] [facility] AST With P-5'-P [Catalytic activity/Vol] 18 U/L Normal 14-40 [facility] Comment on above: Order Comment: Speci men Type: BLOOD SPECIMENOrdering Facility: [facility] Address: [address] [place] [address] Performed By: #### 2 4321-2, 2776-05, , HFP ####[facility] LABORATORYCLIA [id number] [place] [address] [place] Bilirubin [Mass/Vol] 0.3 mg/dL Normal 0.2-1.3 [facility] Comment on above: Order Comment: Speci men Type: BLOOD SPECIMENOrdering Facility: [facility] Address: [address] [place] [address] Performed By: #### 2 4321-2, 2776-05, , HFP ####[facility] LABORATORYCLIA [id number] [place] [address] [place] Bilirubin.conjugated [Mass/Vol] mg/dL Normal <0.2 [facility] Comment on above: Order Comment: Speci men Type: BLOOD SPECIMENOrdering Facility: [facility] Address: [address] [place] [address] Performed By: #### 2 432-2, 2776-05, , HFP ####[facility] LABORATORYCLIA [id number] [place] [address] [place] Protein [Mass/Vol] 6.4 g/dL Normal 6.3-8.0 [facility] Comment on above: Order Comment: Speci men Type: BLOOD SPECIMENOrdering Facility: [facility] Address: [address] [place] [address] Performed By: #### 2 4321-2, 2776-05, , HFP ####[facility] LABORATORYCLIA [id number] [place] [id number] [place] Magnesium SerPl-mCncon 08-07 Magnesium [Mass/Vol] 2.3 mg/dL Normal 1.7-2.3 [facility] Comment on above: Order Comment: Speci men Type: BLOOD SPECIMENOrdering Facility: [facility] Address: [address] [place] [address] Performed By: #### 2 4321-2, 2776-05, , HFP ####[facility] LABORATORYCLIA [id number] [place] [address] [place] NURSING PROGon 08-07-2021 NURSING PROG Normal [facility] Phosphate SerPl-mCncon 08-07 Phosphate [Mass/Vol] 3.5 mg/dL Normal 2.7-4.8 [facility] Comment on above: Order Comment: Speci men Type: BLOOD SPECIMENOrdering Facility: [facility] Address: [address] [place] [address] Performed By: #### 2 4321-2, 277-1, , HFP ####[facility] LABORATORYCLIA [id number] [address] [place] ANES POSTPROC EVALon 022 ANES POSTPROC EVAL Normal [facility] Basic metabolic 2000 panelon 08-06-2021 Anion gap [Moles/Vol] 11 mmol/L Normal 9-18 [facility] Comment on above: Order Comment: Speci men Type: BLOOD SPECIMENOrdering Facility: [facility] Address: [address] [place] [address] Performed By: #### 2 4321-2, 2776-05, ####[facility] LABORATORYCLIA [id number] [place] [address] [place] Calcium [Mass/Vol] 8.2 mg/dL Low 8.5-10.2 [facility] Comment on above: Order Comment: Speci men Type: BLOOD SPECIMENOrdering Facility: [facility] Address: [address] [address] Performed By: #### 2 4321-2, 2776-05, ####[facility] LABORATORYCLIA [id number] [place] [address] [place] Chloride [Moles/Vol] 100 mmol/L Normal 97-105 [facility] Comment on above: Order Comment: Speci men Type: BLOOD SPECIMENOrdering Facility: [facility] Address: [address] [place] [address] Performed By: #### 2 4321-2, 2776-05, ####[facility] LABORATORYCLIA [id number] [address] [place] [facility] CO2 [Moles/Vol] 23 mmol/L Normal 22-30 [facility] Comment on above: Order Comment: Speci men Type: BLOOD SPECIMENOrdering Facility: [facility] Address: [address] [place] [address] Performed By: #### 2 4321-2, 2776-05, ####[facility]NACLIA [id number] [address] Creatinine [Mass/Vol] 0.55 mg/dL Low 0.73-1.22 [facility] Comment on above: Order Comment: Speci men Type: BLOOD SPECIMENOrdering Facility: [facility] Address: [address] [place] [address] Performed By: #### 2 4321-2, 2776-05, ####[facility] CENTERIA [id number] [address] ESTIMATED GLOMERULAR FILTRATION RATE 107 mL/min/1.73m??? Normal >=60 [facility] Comment on above: Order Comment: Speci men Type: BLOOD SPECIMENOrdering Facility: [facility] Address: [address] [place] [address] Result Comment: Luzmaria mated Glomerular Filtration Rate [...] GFR. Performed By: #### 2 4321-2, 27711-04, ####[facility] LABORATORYCLIA [id number] [address] [place] [facility] Glucose [Mass/Vol] 275 mg/dL High 74-99 [facility] Comment on above: Order Comment: Shira feldman Type: BLOOD SPECIMENOrdering Facility: [facility] Address: [address] [place], [place] [address] Result Comment: The [place] [employer] (ADA) provides guidance for cutoff [...] Standards of Medical Care in Diabetes 2016, [place] [employer]. Diabetes Care. 2016.39(Suppl 1). Performed By: #### 2 4321-2, 2776-05, ####[facility] LABORATORYCLIA [id number] [place] [address] [place] Potassium [Moles/Vol] 3.6 mmol/L Low 3.7-5.1 [facility] Comment on above: Order Comment: Shira feldman Type: BLOOD SPECIMENOrdering Facility: [facility] Address: [address] [place], [place] [address] Performed By: #### 2 4321-2, 27711-04, ####[facility] LABORATORYCLIA [id number] [place] [address] [place] Sodium [Moles/Vol] 134 mmol/L Low 136-144 [facility] Comment on above: Order Comment: Shira feldman Type: BLOOD SPECIMENOrdering Facility: [facility] Address: [address] [place], [place] [phone] Performed By: #### 2 4321-2, 27711-04, ####[facility] LABORATORYCLIA [id number] [place] [address] [place] Urea nitrogen [Mass/Vol] 29 mg/dL High 9-24 [facility] Comment on above: Order Comment: Speci men Type: BLOOD SPECIMENOrdering Facility: [facility] Address: [address] [place] [address] Performed By: #### 2 4321-2, 2777-1, 61877-7 ####[facility] LABORATORYCLIA [id number] [place] [address] [place] CBC W Auto Differential pane l (Bld)on 08-06-2021 Basophils (Bld) [#/Vol] 0.03 10*3/uL Normal <0.11 [facility] Comment on above: Order Comment: Speci men Type: BLOOD SPECIMENOrdering Facility: [facility] Address: [address] [place] [address] Performed By: #### 5 7021-8 ####[facility] LABORATORYCLIA [id number] [place] [address] [place] Basophils/100 WBC (Bld) 0.3 % Normal [facility] Comment on above: Order Comment: Speci men Type: BLOOD SPECIMENOrdering Facility: [facility] Address: [address] [place] [address] Performed By: #### 5 7021-8 ####[facility] LABORATORYCLIA [id number] [address] [place] [facility] Differential cell count method Nom (Bld) Auto Normal [facility] Comment on above: Order Comment: Speci men Type: BLOOD SPECIMENOrdering Facility: [facility] Address: [address] [place] [address] Performed By: #### 5 7021-8 ####[facility] LABORATORYCLIA [id number] [place] [address] [place] Eosinophils (Bld) [#/Vol] 0.18 10*3/uL Normal <0.46 [facility] Comment on above: Order Comment: Speci men Type: BLOOD SPECIMENOrdering Facility: [facility] Address: [address] [place] [address] Performed By: #### 5 7021-8 ####[facility] LABORATORYCLIA [id number] [address] [place] Eosinophils/100 WBC (Bld) 1.6 % Normal [facility] Comment on above: Order Comment: Speci men Type: BLOOD SPECIMENOrdering Facility: [facility] Address: [address] [place] [address] Performed By: #### 5 7021-8 ####[facility] LABORATORYCLIA [id number] [address] Erythrocyte distribution width (RBC) [Ratio] 17.9 % High 11.5-15.0 [facility] Comment on above: Order Comment: Speci men Type: BLOOD SPECIMENOrdering Facility: [facility] Address: [address] [place] [address] Performed By: #### 5 7021-8 ####[facility] LABORATORYCLIA [id number] [address] Hematocrit (Bld) [Volume fraction] 27.6 % Low 39.0-51.0 [facility] Comment on above: Order Comment: Speci men Type: BLOOD SPECIMENOrdering Facility: [facility] Address: [address] [place] [address] Performed By: #### 5 7021-8 ####[facility] LABORATORYCLIA [id number] [address] [place] Hemoglobin (Bld) [Mass/Vol] 8.5 g/dL Low 13.0-17.0 [facility] Comment on above: Order Comment: Speci men Type: BLOOD SPECIMENOrdering Facility: [facility] Address: [address] [place] [address] Performed By: #### 5 7021-8 ####[facility] LABORATORYCLIA [id number] [address] [place] IMMATURE GRAN % 0.6 % Normal [facility] Comment on above: Order Comment: Speci men Type: BLOOD SPECIMENOrdering Facility: [facility] Address: [address] [place] [address] Performed By: #### 5 7021-8 ####[facility] LABORATORYCLIA [id number] [address] IMMATURE GRAN ABS 0.07 k/uL Normal <0.10 [facility] Comment on above: Order Comment: Speci men Type: BLOOD SPECIMENOrdering Facility: [facility] Address: [address] [place] [address] Performed By: #### 5 7021-8 ####[facility] LABORATORYCLIA [id number] [address] Lymphocytes (Bld) [#/Vol] 1.81 10*3/uL Normal 1.00-4.00 [facility] Comment on above: Order Comment: Speci men Type: BLOOD SPECIMENOrdering Facility: [facility] Address: [address] [place] [address] Performed By: #### 5 7021-8 ####[facility] LABORATORYCLIA [id number] [address] Lymphocytes/100 WBC (Bld) 15.7 % Normal [facility] Comment on above: Order Comment: Speci men Type: BLOOD SPECIMENOrdering Facility: [facility] Address: [address] [place] [address] Performed By: #### 5 7021-8 ####[facility] LABORATORYCLIA [id number] [address] MCH (RBC) [Entitic mass] 28.6 pg Normal 26.0-34.0 [facility] Comment on above: Order Comment: Speci men Type: BLOOD SPECIMENOrdering Facility: [facility] Address: [address] [place] [address] Performed By: #### 5 7021-8 ####[facility] LABORATORYCLIA [id number] [address] MCHC (RBC) [Mass/Vol] 30.8 g/dL Normal 30.5-36.0 [facility] Comment on above: Order Comment: Speci men Type: BLOOD SPECIMENOrdering Facility: [facility] Address: [address] [place] [address] Performed By: #### 5 7021-8 ####[facility] LABORATORYCLIA [id number] [address] [place] MCV (RBC) [Entitic vol] 92.9 fL Normal 80.0-100.0 [facility] Comment on above: Order Comment: Speci men Type: BLOOD SPECIMENOrdering Facility: [facility] Address: [address] [place] [address] Performed By: #### 5 7021-8 ####[facility] LABORATORYCLIA [id number] [address] [place] Monocytes (Bld) [#/Vol] 0.63 10*3/uL Normal <0.87 [facility] Comment on above: Order Comment: Speci men Type: BLOOD SPECIMENOrdering Facility: [facility] Address: [address] [place] [address] Performed By: #### 5 7021-8 ####[facility] LABORATORYCLIA [id number] [address] OF [facility] Monocytes/100 WBC (Bld) 5.5 % Normal [facility] Comment on above: Order Comment: Speci men Type: BLOOD SPECIMENOrdering Facility: [facility] Address: [address] [place] [address] Performed By: #### 5 7021-8 ####[facility] LABORATORYCLIA [id number] [address] [place] Neutrophils (Bld) [#/Vol] 8.78 10*3/uL High 1.45-7.50 [facility] Comment on above: Order Comment: Speci men Type: BLOOD SPECIMENOrdering Facility: [facility] Address: [address] [place] [address] Performed By: #### 5 7021-8 ####[facility]ORATORYCLIA [id number] [address] [place] Neutrophils/100 WBC (Bld) 76.3 % Normal [facility] Comment on above: Order Comment: Speci men Type: BLOOD SPECIMENOrdering Facility: [facility] Address: [address] [place] [address] Performed By: #### 5 7021-8 ####[facility] LABORATORYCLIA [id number] [address] [place] Nucleated RBC (Bld) [#/Vol] 10*3/uL Normal <0.01 [facility] Comment on above: Order Comment: Speci men Type: BLOOD SPECIMENOrdering Facility: [facility] Address: [address] [place] [address] Performed By: #### 5 7021-8 ####[facility] LABORATORYCLIA [id number] [address] Nucleated RBC/100 WBC (Bld) [Ratio] 0.0 /100 WBC Normal [facility] Comment on above: Order Comment: Speci men Type: BLOOD SPECIMENOrdering Facility: [facility] Address: [address] [place] [address] Performed By: #### 5 7021-8 ####[facility] LABORATORYCLIA [id number] [address] [place] Platelet mean volume (Bld) [Entitic vol] 9.9 fL Normal 9.0-12.7 [facility] Comment on above: Order Comment: Speci men Type: BLOOD SPECIMENOrdering Facility: [facility] Address: [address] [place] [address] Performed By: #### 5 7021-8 ####[facility] LABORATORYCLIA [id number] [address] [place] Platelets (Bld) [#/Vol] 230 10*3/uL Normal 150-400 [facility] Comment on above: Order Comment: Speci men Type: BLOOD SPECIMENOrdering Facility: [facility] Address: [address] [place] [address] Performed By: #### 5 7021-8 ####[facility] LABORATORYCLIA [id number] [address] OF [facility] RBC (Bld) [#/Vol] 2.97 10*6/uL Low 4.20-6.00 [facility] Comment on above: Order Comment: Speci men Type: BLOOD SPECIMENOrdering Facility: [facility] Address: [address] [place] [address] Performed By: #### 5 7021-8 ####[facility] LABORATORYCLIA [id number] [address] WBC (Bld) [#/Vol] 11.50 10*3/uL High 3.70-11.00 [facility] Comment on above: Order Comment: Speci men Type: BLOOD SPECIMENOrdering Facility: [facility] Address: [address] [place] [address] Performed By: #### 5 7021-8 ####[facility] LABORATORYCLIA [id number] [address] CONSULT PROGon 08-06-2021 CONSULT PROG Normal [facility] Magnesium SerPl-mCncon 08-06 Magnesium [Mass/Vol] 1.9 mg/dL Normal 1.7-2.3 [facility] Comment on above: Order Comment: Speci men Type: BLOOD SPECIMENOrdering Facility: [facility] Address: [address] [place] [address] Performed By: #### 2 4321-2, 2777-1, 26015-4 ####[facility] LABORATORYCLIA [id number] [address] NURSING PROGon 08-06-2021 NURSING PROG Normal [facility] OPERATIVE NOon 08-06-2021 OPERATIVE NO Normal [facility] Phosphate SerPl-mCncon 08-06 Phosphate [Mass/Vol] 4.2 mg/dL Normal 2.7-4.8 [facility] Comment on above: Order Comment: Speci men Type: BLOOD SPECIMENOrdering Facility: [facility] Address: [address] [place], [place] [phone] Performed By: #### 2 4321-2, 2777-1, 29958-1 ####[facility] LABORATORYCLIA [id number] [place] [address] [place] ALLIED HEALTHon 08-05-2021 ALLIED HEALTH Normal [facility] ALLIED HEALTH Normal [facility] ANES PRE-OPon 08-05-2021 ANES PRE-OP Normal [facility] BRIEF OP NOTon 08-05-2021 BRIEF OP NOT Normal [facility] Bacteria Spec Resp Culton Bacteria identified Respiratory culture Nom (Unsp spec) CULTURE, RESPIRATORY: Few Normal respiratory chris present ORGANISM ID: 1 Few Proteus species Insignificant colony count. No further workup. GRAM STAIN: No organisms seen Few Polymorphonuclear leukocytes Few Epithelial cells Abnormal [facility] Comment on above: Performed By: #### 3 2355-0 ####[facility] LABORATORYCLIA [id number] [place] [address] [place] Bacteria Ur Culton Bacteria identified Cx Nom (U) CULTURE, URINE: No growth (<1,000 CFU/ml) Normal [facility] Comment on above: Performed By: #### 6 30-4 ####[facility]ATORYCLIA [id number] [place] [address] [place] Basic metabolic 2000 panelon 08-05-2021 Anion gap [Moles/Vol] 7 mmol/L Low 9-18 [facility] Comment on above: Order Comment: Speci men Type: BLOOD SPECIMENOrdering Facility: [facility] Address: [address] [place], [place] [id number] Performed By: #### 2 4321-2 ####[facility]ATORYCLIA [id number] [place] [address] [place] Calcium [Mass/Vol] 9.5 mg/dL Normal 8.5-10.2 [facility] Comment on above: Order Comment: Speci men Type: BLOOD SPECIMENOrdering Facility: [facility] Address: [address] [place] [address] Performed By: #### 2 4321-2 ####[facility]ATORYCLIA [id number] [place] [address] [place] Chloride [Moles/Vol] 97 mmol/L Normal 97-105 [facility] Comment on above: Order Comment: Speci men Type: BLOOD SPECIMENOrdering Facility: [facility] Address: [address] [place] [address] Performed By: #### 2 4321-2 ####[facility]ATORYCLIA [id number] [place] [address] [place] CO2 [Moles/Vol] 30 mmol/L Normal 22-30 [facility] Comment on above: Order Comment: Speci men Type: BLOOD SPECIMENOrdering Facility: [facility] Address: [address] [place] [address] Performed By: #### 2 4321-2 ####[facility]ATORYCLIA [id number] [address] [place] Creatinine [Mass/Vol] 0.61 mg/dL Low 0.73-1.22 [facility] Comment on above: Order Comment: Speci men Type: BLOOD SPECIMENOrdering Facility: [facility] Address: [address] [place] [address] Performed By: #### 2 4321-2 ####[facility]ATORYCLIA [id number] [address] ESTIMATED GLOMERULAR FILTRATION RATE 104 mL/min/1.73m??? Normal >=60 [facility] Comment on above: Order Comment: Speci men Type: BLOOD SPECIMENOrdering Facility: [facility] Address: [address] [place] [address] Result Comment: Luzmaria mated Glomerular Filtration Rate [...] actual GFR. Performed By: #### 2 4321-2 ####[facility]ORATORYCLIA [id number] [place] [address] [place] Glucose [Mass/Vol] 124 mg/dL High 74-99 [facility] Comment on above: Order Comment: Shira feldman Type: BLOOD SPECIMENOrdering Facility: [facility] Address: [address] [id number] Result Comment: The [place] [employer] (ADA) provides guidance for cutoff [...] Standards of Medical Care in Diabetes 2016, [place] [employer]. Diabetes Care. 2016.39(Suppl 1). Performed By: #### 2 4321-2 ####[facility]ATORYCLIA [id number] [place] [address] [place] Potassium [Moles/Vol] 4.9 mmol/L Normal 3.7-5.1 [facility] Comment on above: Order Comment: Shira feldman Type: BLOOD SPECIMENOrdering Facility: [facility] Address: [address] [id number] Performed By: #### 2 4321-2 ####[facility]ATORYCLIA [id number] [place] [address] [place] Sodium [Moles/Vol] 134 mmol/L Low 136-144 [facility] Comment on above: Order Comment: Shira feldman Type: BLOOD SPECIMENOrdering Facility: [facility] Address: [address] [address] Performed By: #### 2 4321-2 ####[facility]ORATORYCLIA [id number] [address] [place] [facility] Urea nitrogen [Mass/Vol] 40 mg/dL High 9-24 [facility] Comment on above: Order Comment: Speci men Type: BLOOD SPECIMENOrdering Facility: [facility] Address: [address] [place] [address] Performed By: #### 2 4321-2 ####[facility]ATORYCLIA [id number] [address] [place] CBC W Auto Differential pane l (Bld)on 08-05-2021 Basophils (Bld) [#/Vol] 0.04 10*3/uL Normal <0.11 [facility] Comment on above: Order Comment: Speci men Type: BLOOD SPECIMENOrdering Facility: [facility] Address: [address] [place] [address] Performed By: #### 5 7021-8 ####[facility]ATORYCLIA [id number] [address] [place] Basophils/100 WBC (Bld) 0.3 % Normal [facility] Comment on above: Order Comment: Speci men Type: BLOOD SPECIMENOrdering Facility: [facility] Address: [address] [place] [address] Performed By: #### 5 7021-8 ####[facility]ATORYCLIA [id number] [address] Differential cell count method Nom (Bld) Auto Normal [facility] Comment on above: Order Comment: Speci men Type: BLOOD SPECIMENOrdering Facility: [facility] Address: [address] [place] [address] Performed By: #### 5 7021-8 ####[facility]ATORYCLIA [id number] [place] [address] [place] Eosinophils (Bld) [#/Vol] 0.42 10*3/uL Normal <0.46 [facility] Comment on above: Order Comment: Speci men Type: BLOOD SPECIMENOrdering Facility: [facility] Address: [address] [place] [address] Performed By: #### 5 7021-8 ####[facility]ATORYCLIA [id number] [address] [place] Eosinophils/100 WBC (Bld) 3.6 % Normal [facility] Comment on above: Order Comment: Speci men Type: BLOOD SPECIMENOrdering Facility: [facility] Address: [address] [place] [address] Performed By: #### 5 7021-8 ####[facility]ATORYCLIA [id number] [address] [place] Erythrocyte distribution width (RBC) [Ratio] 17.9 % High 11.5-15.0 [facility] Comment on above: Order Comment: Speci men Type: BLOOD SPECIMENOrdering Facility: [facility] Address: [address] [place] [address] Performed By: #### 5 7021-8 ####[facility]ATORYCLIA [id number] [address] [place] Hematocrit (Bld) [Volume fraction] 30.8 % Low 39.0-51.0 [facility] Comment on above: Order Comment: Speci men Type: BLOOD SPECIMENOrdering Facility: [facility] Address: [address] [place] [address] Performed By: #### 5 7021-8 ####[facility]ATORYCLIA [id number] [address] [place] Hemoglobin (Bld) [Mass/Vol] 9.6 g/dL Low 13.0-17.0 [facility] Comment on above: Order Comment: Speci men Type: BLOOD SPECIMENOrdering Facility: [facility] Address: [address] [place] [address] Performed By: #### 5 7021-8 ####[facility]ATORYCLIA [id number] [address] IMMATURE GRAN % 0.5 % Normal [facility] Comment on above: Order Comment: Speci men Type: BLOOD SPECIMENOrdering Facility: [facility] Address: [address] [place] [address] Performed By: #### 5 7021-8 ####[facility]ATORYCLIA [id number] [address] IMMATURE GRAN ABS 0.06 k/uL Normal <0.10 [facility] Comment on above: Order Comment: Speci men Type: BLOOD SPECIMENOrdering Facility: [facility] Address: [address] [place] [address] Performed By: #### 5 7021-8 ####[facility]ATORYCLIA [id number] [address] Lymphocytes (Bld) [#/Vol] 2.17 10*3/uL Normal 1.00-4.00 [facility] Comment on above: Order Comment: Speci men Type: BLOOD SPECIMENOrdering Facility: [facility] Address: [address] [place] [address] Performed By: #### 5 7021-8 ####[facility]ATORYCLIA [id number] [address] Lymphocytes/100 WBC (Bld) 18.7 % Normal [facility] Comment on above: Order Comment: Speci men Type: BLOOD SPECIMENOrdering Facility: [facility] Address: [address] [place] [address] Performed By: #### 5 7021-8 ####[facility]ATORYCLIA [id number] [address] MCH (RBC) [Entitic mass] 28.9 pg Normal 26.0-34.0 [facility] Comment on above: Order Comment: Speci men Type: BLOOD SPECIMENOrdering Facility: [facility] Address: [address] [place] [address] Performed By: #### 5 7021-8 ####[facility]ATORYCLIA [id number] [address] [place] MCHC (RBC) [Mass/Vol] 31.2 g/dL Normal 30.5-36.0 [facility] Comment on above: Order Comment: Speci men Type: BLOOD SPECIMENOrdering Facility: [facility] Address: [address] [place] [address] Performed By: #### 5 7021-8 ####[facility]ATORYCLIA [id number] [address] [place] [facility] MCV (RBC) [Entitic vol] 92.8 fL Normal 80.0-100.0 [facility] Comment on above: Order Comment: Speci men Type: BLOOD SPECIMENOrdering Facility: [facility] Address: [address] [place] [address] Performed By: #### 5 7021-8 ####[facility]ATORYCLIA [id number] [address] Monocytes (Bld) [#/Vol] 0.71 10*3/uL Normal <0.87 [facility] Comment on above: Order Comment: Speci men Type: BLOOD SPECIMENOrdering Facility: [facility] Address: [address] [place] [address] Performed By: #### 5 7021-8 ####[facility]ATORYCLIA [id number] [address] Monocytes/100 WBC (Bld) 6.1 % Normal [facility] Comment on above: Order Comment: Speci men Type: BLOOD SPECIMENOrdering Facility: [facility] Address: [address] [place] [address] Performed By: #### 5 7021-8 ####[facility]ATORYCLIA [id number] [address] [place] Neutrophils (Bld) [#/Vol] 8.19 10*3/uL High 1.45-7.50 [facility] Comment on above: Order Comment: Speci men Type: BLOOD SPECIMENOrdering Facility: [facility] Address: [address] [place] [address] Performed By: #### 5 7021-8 ####[facility]ATORYCLIA [id number] [address] Neutrophils/100 WBC (Bld) 70.8 % Normal [facility] Comment on above: Order Comment: Speci men Type: BLOOD SPECIMENOrdering Facility: [facility] Address: [address] [place] [address] Performed By: #### 5 7021-8 ####[facility]ATORYCLIA [id number] [address] [place] Nucleated RBC (Bld) [#/Vol] 10*3/uL Normal <0.01 [facility] Comment on above: Order Comment: Speci men Type: BLOOD SPECIMENOrdering Facility: [facility] Address: [address] [place] [address] Performed By: #### 5 7021-8 ####[facility]ATORYCLIA [id number] [address] [place] [facility] Nucleated RBC/100 WBC (Bld) [Ratio] 0.0 /100 WBC Normal [facility] Comment on above: Order Comment: Speci men Type: BLOOD SPECIMENOrdering Facility: [facility] Address: [address] [place] [address] Performed By: #### 5 7021-8 ####[facility]ATORYCLIA [id number] [address] [place] Platelet mean volume (Bld) [Entitic vol] 9.6 fL Normal 9.0-12.7 [facility] Comment on above: Order Comment: Speci men Type: BLOOD SPECIMENOrdering Facility: [facility] Address: [address] [place] [address] Performed By: #### 5 7021-8 ####[facility]ORATORYCLIA [id number] [place] [address] [place] Platelets (Bld) [#/Vol] 339 10*3/uL Normal 150-400 [facility] Comment on above: Order Comment: Speci men Type: BLOOD SPECIMENOrdering Facility: [facility] Address: [address] [place] [address] Performed By: #### 5 7021-8 ####[facility]ATORYCLIA [id number] [address] [place] [facility] RBC (Bld) [#/Vol] 3.32 10*6/uL Low 4.20-6.00 [facility] Comment on above: Order Comment: Speci men Type: BLOOD SPECIMENOrdering Facility: [facility] Address: [address] [place] [address] Performed By: #### 5 7021-8 ####[facility]ATORYCLIA [id number] [address] WBC (Bld) [#/Vol] 11.59 10*3/uL High 3.70-11.00 [facility] Comment on above: Order Comment: Speci men Type: BLOOD SPECIMENOrdering Facility: [facility] Address: [address] [place] [address] Performed By: #### 5 7021-8 ####[facility]ATORYCLIA [id number] [address] BRAIN WO IVCONon 08-06-19 CT BRAIN WO IVCON Normal [facility] Magnesium SerPl-mCncon 08-05 Magnesium [Mass/Vol] 2.2 mg/dL Normal 1.7-2.3 [facility] Comment on above: Order Comment: Speci men Type: BLOOD SPECIMENOrdering Facility: [facility] Address: [address] [place] [address] Performed By: #### 1 9123-9, 2777-1 ####[facility]ATORYCLIA [id number] [address] [place] NURSING PROGon 08-05-2021 NURSING PROG Normal [facility] NURSING PROG Normal [facility] NUTRITIONon 08-05-2021 NUTRITION Normal [facility] OPERATIVE NOon 08-05-2021 OPERATIVE NO Normal [facility] Phosphate SerPl-mCncon 08-05 Phosphate [Mass/Vol] 4.6 mg/dL Normal 2.7-4.8 [facility] Comment on above: Order Comment: Speci men Type: BLOOD SPECIMENOrdering Facility: [facility] Address: [address] [place] [address] Performed By: #### 1 9123-9, 2777-1 ####[facility]ATORYCLIA [id number] [address] THERAPY NTon 08-05-2021 THERAPY NT Normal [facility] THERAPY NT Normal [facility] Urinalysis complete panel (U )on 08-05-2021 Bilirubin Ql (U) Negative Normal Negative [facility] Comment on above: Order Comment: Speci men Type: URINE SPECIMENOrdering Facility: [facility] Address: [address] [place] [address] Performed By: #### 2 4356-8 ####[facility]ATORYCLIA [id number] [address] [place] Clarity (Unsp spec) Clear Normal Clear [facility] Comment on above: Order Comment: Speci men Type: URINE SPECIMENOrdering Facility: [facility] Address: [address] [place] [address] Performed By: #### 2 4356-8 ####[facility]ATORYCLIA [id number] [address] Color (U) Light Yellow Normal yellow [facility] Comment on above: Order Comment: Speci men Type: URINE SPECIMENOrdering Facility: [facility] Address: [address] [place] [address] Performed By: #### 2 4356-8 ####[facility]ATORYCLIA [id number] [address] [place] Epithelial cells LM.HPF (Urine sed) [#/Area] Few Abnormal None Seen [facility] Comment on above: Order Comment: Speci men Type: URINE SPECIMENOrdering Facility: [facility] Address: [address] [place] [address] Performed By: #### 2 4356-8 ####[facility] LABORATORYCLIA [id number] [address] Glucose Test strip (U) [Mass/Vol] Negative Normal Negative [facility] Comment on above: Order Comment: Speci men Type: URINE SPECIMENOrdering Facility: [facility] Address: [address] [place] [address] Performed By: #### 2 4356-8 ####[facility]ATORYCLIA [id number] [address] [place] [facility] Hemoglobin Ql (U) Negative Normal Negative [facility] Comment on above: Order Comment: Speci men Type: URINE SPECIMENOrdering Facility: [facility] Address: [address] [place] [address] Performed By: #### 2 4356-8 ####[facility]ATORYCLIA [id number] [address] Hyaline casts (Urine sed) [#/Area] 1-3 /LPF Abnormal 0 /LPF [facility] Comment on above: Order Comment: Speci men Type: URINE SPECIMENOrdering Facility: [facility] Address: [address] [place] [address] Performed By: #### 2 4356-8 ####[facility]ORATORYCLIA [id number] [address] [place] [facility] Ketones Ql (U) Negative Normal Negative [facility] Comment on above: Order Comment: Speci men Type: URINE SPECIMENOrdering Facility: [facility] Address: [address] [place] [address] Performed By: #### 2 4356-8 ####[facility]ATORYCLIA [id number] [address] Leukocyte esterase Test strip Ql (U) Negative Normal Negative [facility] Comment on above: Order Comment: Speci men Type: URINE SPECIMENOrdering Facility: [facility] Address: [address] [place] [address] Performed By: #### 2 4356-8 ####[facility]ATORYCLIA [id number] [place] [address] [place] Nitrite Ql (U) Negative Normal Negative [facility] Comment on above: Order Comment: Speci men Type: URINE SPECIMENOrdering Facility: [facility] Address: [address] [place] [address] Performed By: #### 2 4356-8 ####[facility]ATORYCLIA [id number] [address] [place] pH (U) 6.0 [pH] Normal 5.0-8.0 [facility] Comment on above: Order Comment: Speci men Type: URINE SPECIMENOrdering Facility: [facility] Address: [address] [place] [address] Performed By: #### 2 4356-8 ####[facility]ATORYCLIA [id number] [address] [place] [facility] Protein (U) [Mass/Vol] Negative Normal Negative [facility] Comment on above: Order Comment: Speci men Type: URINE SPECIMENOrdering Facility: [facility] Address: [address] [place] [address] Performed By: #### 2 4356-8 ####[facility]ATORYCLIA [id number] [address] [place] RBC LM.HPF (Urine sed) [#/Area] 0-3 /HPF Normal 0-3 /HPF [facility] Comment on above: Order Comment: Speci men Type: URINE SPECIMENOrdering Facility: [facility] Address: [address] [place] [address] Performed By: #### 2 4356-8 ####[facility]ATORYCLIA [id number] [address] [place] Specific gravity (U) [Rel density] 1.015 Normal 1.005-1.030 [facility] Comment on above: Order Comment: Speci men Type: URINE SPECIMENOrdering Facility: [facility] Address: [address] [place] [address] Performed By: #### 2 4356-8 ####[facility]ORATORYCLIA [id number] [place] [address] [place] Urobilinogen Ql (U) Normal Normal Negative [facility] Comment on above: Order Comment: Speci men Type: URINE SPECIMENOrdering Facility: [facility] Address: [address] [place] [address] Performed By: #### 2 4356-8 ####[facility]ATORYCLIA [id number] [place] [address] [place] WBC LM.HPF (Urine sed) [#/Area] 0-5 /HPF Normal 0-5 /HPF [facility] Comment on above: Order Comment: Speci men Type: URINE SPECIMENOrdering Facility: [facility] Address: [address] [place] [address] Performed By: #### 2 4356-8 ####[facility]ATORYCLIA [id number] [address] [place] XR ABDOMEN 1V SUPINEon 08-05 XR ABDOMEN 1V SUPINE Normal [facility] XR CHEST 1V FRONTALon 2021 XR CHEST 1V FRONTAL Normal [facility] XR CHEST 1V FRONTAL Normal [facility] XR NECK SOFT TISSUE 2V AP/LA Ton 08-05-2021 XR NECK SOFT TISSUE 2V AP/LAT Normal [facility] XR SKULL 2V AP/LATon 022 XR SKULL 2V AP/LAT Normal [facility] ALLIED HEALTHon 08-04-2021 ALLIED HEALTH Normal [facility] Bacteria Bld Culton 08-05-19 22 Bacteria identified Cx Nom (Bld) CULTURE, BLOOD: No growth 5 days Normal [facility] Comment on above: Performed By: #### 6 00-7 ####[facility]ORATORYCLIA [id number] [address] Bacteria identified Cx Nom (Bld) CULTURE, BLOOD: No growth 5 days Normal [facility] Comment on above: Performed By: #### 6 00-7 ####[facility]ATORYCLIA [id number] [address] [place] [facility] CBC W Auto Differential pane l (Bld)on 08-04-2021 Basophils (Bld) [#/Vol] 0.05 10*3/uL Normal <0.11 [facility] Comment on above: Order Comment: Speci men Type: BLOOD SPECIMENOrdering Facility: [facility] Address: [address] [place] [address] Performed By: #### 5 7021-8 ####[facility]ATORYCLIA [id number] [address] Basophils/100 WBC (Bld) 0.4 % Normal [facility] Comment on above: Order Comment: Speci men Type: BLOOD SPECIMENOrdering Facility: [facility] Address: [address] [place] [address] Performed By: #### 5 7021-8 ####[facility]ATORYCLIA [id number] [address] Differential cell count method Nom (Bld) Auto Normal [facility] Comment on above: Order Comment: Speci men Type: BLOOD SPECIMENOrdering Facility: [facility] Address: [address] [place] [address] Performed By: #### 5 7021-8 ####[facility]ATORYCLIA [id number] [address] [place] Eosinophils (Bld) [#/Vol] 0.21 10*3/uL Normal <0.46 [facility] Comment on above: Order Comment: Speci men Type: BLOOD SPECIMENOrdering Facility: [facility] Address: [address] [place] [address] Performed By: #### 5 7021-8 ####[facility]ORATORYCLIA [id number] [address] [place] [facility] Eosinophils/100 WBC (Bld) 1.7 % Normal [facility] Comment on above: Order Comment: Speci men Type: BLOOD SPECIMENOrdering Facility: [facility] Address: [address] [place] [address] Performed By: #### 5 7021-8 ####[facility]ATORYCLIA [id number] [address] Erythrocyte distribution width (RBC) [Ratio] 18.1 % High 11.5-15.0 [facility] Comment on above: Order Comment: Speci men Type: BLOOD SPECIMENOrdering Facility: [facility] Address: [address] [place] [address] Performed By: #### 5 7021-8 ####[facility]ATORYCLIA [id number] [address] Hematocrit (Bld) [Volume fraction] 32.0 % Low 39.0-51.0 [facility] Comment on above: Order Comment: Speci men Type: BLOOD SPECIMENOrdering Facility: [facility] Address: [address] [place] [address] Performed By: #### 5 7021-8 ####[facility]ATORYCLIA [id number] [address] [place] Hemoglobin (Bld) [Mass/Vol] 10.0 g/dL Low 13.0-17.0 [facility] Comment on above: Order Comment: Speci men Type: BLOOD SPECIMENOrdering Facility: [facility] Address: [address] [place] [address] Performed By: #### 5 7021-8 ####[facility]ORATORYCLIA [id number] [address] IMMATURE GRAN % 0.6 % Normal [facility] Comment on above: Order Comment: Speci men Type: BLOOD SPECIMENOrdering Facility: [facility] Address: [address] [place] [address] Performed By: #### 5 7021-8 ####[facility]ATORYCLIA [id number] [address] IMMATURE GRAN ABS 0.08 k/uL Normal <0.10 [facility] Comment on above: Order Comment: Speci men Type: BLOOD SPECIMENOrdering Facility: [facility] Address: [address] [place] [address] Performed By: #### 5 7021-8 ####[facility]ATORYCLIA [id number] [address] Lymphocytes (Bld) [#/Vol] 2.55 10*3/uL Normal 1.00-4.00 [facility] Comment on above: Order Comment: Speci men Type: BLOOD SPECIMENOrdering Facility: [facility] Address: [address] [place] [address] Performed By: #### 5 7021-8 ####[facility]ATORYCLIA [id number] [address] Lymphocytes/100 WBC (Bld) 20.5 % Normal [facility] Comment on above: Order Comment: Speci men Type: BLOOD SPECIMENOrdering Facility: [facility] Address: [address] [place] [address] Performed By: #### 5 7021-8 ####[facility]ORATORYCLIA [id number] [address] [place] [facility] MCH (RBC) [Entitic mass] 28.9 pg Normal 26.0-34.0 [facility] Comment on above: Order Comment: Speci men Type: BLOOD SPECIMENOrdering Facility: [facility] Address: [address] [place] [address] Performed By: #### 5 7021-8 ####[facility] LABORATORYCLIA [id number] [address] MCHC (RBC) [Mass/Vol] 31.3 g/dL Normal 30.5-36.0 [facility] Comment on above: Order Comment: Speci men Type: BLOOD SPECIMENOrdering Facility: [facility] Address: [address] [place] [address] Performed By: #### 5 7021-8 ####[facility] LABORATORYCLIA [id number] [address] [place] MCV (RBC) [Entitic vol] 92.5 fL Normal 80.0-100.0 [facility] Comment on above: Order Comment: Speci men Type: BLOOD SPECIMENOrdering Facility: [facility] Address: [address] [place] [address] Performed By: #### 5 7021-8 ####[facility] LABORATORYCLIA [id number] [address] [place] Monocytes (Bld) [#/Vol] 0.85 10*3/uL Normal <0.87 [facility] Comment on above: Order Comment: Speci men Type: BLOOD SPECIMENOrdering Facility: [facility] Address: [address] [place] [address] Performed By: #### 5 7021-8 ####[facility] LABORATORYCLIA [id number] [address] Monocytes/100 WBC (Bld) 6.8 % Normal [facility] Comment on above: Order Comment: Speci men Type: BLOOD SPECIMENOrdering Facility: [facility] Address: [address] [place] [address] Performed By: #### 5 7021-8 ####[facility] LABORATORYCLIA [id number] [address] [place] Neutrophils (Bld) [#/Vol] 8.68 10*3/uL High 1.45-7.50 [facility] Comment on above: Order Comment: Speci men Type: BLOOD SPECIMENOrdering Facility: [facility] Address: [address] [place] [address] Performed By: #### 5 7021-8 ####[facility] LABORATORYCLIA [id number] [address] [place] Neutrophils/100 WBC (Bld) 70.0 % Normal [facility] Comment on above: Order Comment: Speci men Type: BLOOD SPECIMENOrdering Facility: [facility] Address: [address] [place] [address] Performed By: #### 5 7021-8 ####[facility] LABORATORYCLIA [id number] [address] [place] Nucleated RBC (Bld) [#/Vol] 10*3/uL Normal <0.01 [facility] Comment on above: Order Comment: Speci men Type: BLOOD SPECIMENOrdering Facility: [facility] Address: [address] [place] [address] Performed By: #### 5 7021-8 ####[facility] LABORATORYCLIA [id number] [address] Nucleated RBC/100 WBC (Bld) [Ratio] 0.0 /100 WBC Normal [facility] Comment on above: Order Comment: Speci men Type: BLOOD SPECIMENOrdering Facility: [facility] Address: [address] [place] [address] Performed By: #### 5 7021-8 ####[facility] LABORATORYCLIA [id number] [address] [place] Platelet mean volume (Bld) [Entitic vol] 10.0 fL Normal 9.0-12.7 [facility] Comment on above: Order Comment: Speci men Type: BLOOD SPECIMENOrdering Facility: [facility] Address: [address] [place] [address] Performed By: #### 5 7021-8 ####[facility] LABORATORYCLIA [id number] [address] [place] Platelets (Bld) [#/Vol] 393 10*3/uL Normal 150-400 [facility] Comment on above: Order Comment: Speci men Type: BLOOD SPECIMENOrdering Facility: [facility] Address: [address] [place] [address] Performed By: #### 5 7021-8 ####[facility] LABORATORYCLIA [id number] [address] RBC (Bld) [#/Vol] 3.46 10*6/uL Low 4.20-6.00 [facility] Comment on above: Order Comment: Speci men Type: BLOOD SPECIMENOrdering Facility: [facility] Address: [address] [place] [address] Performed By: #### 5 7021-8 ####[facility] LABORATORYCLIA [id number] [address] WBC (Bld) [#/Vol] 12.42 10*3/uL High 3.70-11.00 [facility] Comment on above: Order Comment: Speci men Type: BLOOD SPECIMENOrdering Facility: [facility] Address: [address] [place] [address] Performed By: #### 5 7021-8 ####[facility] LABORATORYCLIA [id number] [address] BRAIN WO IVCONon 08-05-[address] BRAIN WO IVCON Normal [facility] Lactate (Bld) [Moles/Vol]on 08-04-2021 Lactate [Moles/Vol] 1.4 mmol/L Normal 0.5-2.2 [facility] Comment on above: Order Comment: Speci men Type: BLOOD SPECIMENOrdering Facility: [facility] Address: [address] [place] [address] Performed By: #### 3 2693-4 ####[facility] LABORATORYCLIA [id number] [address] PROCALCITONIN (LAB)on 2021 Procalcitonin [Mass/Vol] 0.08 ng/mL Normal <0.09 [facility] Comment on above: Order Comment: Speci men Type: BLOOD SPECIMENOrdering Facility: [facility] Address: [address] [place] [address] Result Comment: For a guided interpretation of test results, please visit the Change in Procalcitonin Calculator, [email or web address]. Performed By: #### P ROCAL ####[facility] LABORATORYCLIA [id number] [address] Prealbumin [Mass/Vol]on 07-07 Prealbumin Nephelometry [Mass/Vol] 35 mg/dL Normal [facility] Comment on above: Order Comment: Speci men Type: BLOOD SPECIMENOrdering Facility: [facility] Address: [address] [place] [address] Performed By: #### 1 4338-8 ####[facility] LABORATORYCLIA [id number] [address] SARS-CoV-2 RNA Resp Ql MEGAN+p robeon 08-04-2021 SARS-CoV-2 (COVID-19) RNA MEGAN+probe Ql (Resp) COVID 19 RESULT: SARS-CoV-2 (Agent of COVID-19) Not Detected by RT-PCR or equivalent method. This test has been authorized by FDA under an Emergency Use Authorization (EUA). Normal [facility] Comment on above: Performed By: #### 9 4500-6 ####[facility]ORATORYCLIA [id number] [address] STATES OF [facility] TYPE AND SCREENon 08-04-2021 ABO O Normal [facility] Comment on above: Order Comment: Speci men Type: BLOOD SPECIMENOrdering Facility: [facility] Address: [address] [place] [address] Performed By: #### T SCR ####[facility] BLOOD BANKCLIA [id number] [address] HISTORICAL AB SCR STATUS Negative Normal [facility] Comment on above: Order Comment: Speci men Type: BLOOD SPECIMENOrdering Facility: [facility] Address: [address] [place] [address] Performed By: #### T SCR ####[facility] BLOOD BANKCLIA [id number] [address] Rh Nom (Bld) Positive Normal [facility] Comment on above: Order Comment: Speci men Type: BLOOD SPECIMENOrdering Facility: [facility] Address: [address] [place] [address] Performed By: #### T SCR ####[facility] BLOOD BANKCLIA [id number] [address] TYPE AND SCREEN EXPIRATION 08/07/2021 23:59 Normal [facility] Comment on above: Order Comment: Speci men Type: BLOOD SPECIMENOrdering Facility: [facility] Address: [address] [place] [address] Performed By: #### T SCR ####[facility] BLOOD BANKCLIA [id number] [address] aPTT PPPon 08-04-2021 aPTT Coag (PPP) [Time] 51.8 s High 23.0-32.4 [facility] Comment on above: Order Comment: Speci men Type: BLOOD SPECIMENOrdering Facility: [facility] Address: [address] [place] [address] Performed By: #### 1 4979-9 ####[facility] LABORATORYCLIA [id number] [address] Basic metabolic 2000 panelon 08-03-2021 Anion gap [Moles/Vol] 9 mmol/L Normal 9-18 [facility] Comment on above: Order Comment: Speci men Type: BLOOD SPECIMENOrdering Facility: [facility] Address: [address] [place] [address] Performed By: #### 2 4321-2, 83976-5, 2777-1 ####[facility] LABORATORYCLIA [id number] [address] [place] [facility] Calcium [Mass/Vol] 9.3 mg/dL Normal 8.5-10.2 [facility] Comment on above: Order Comment: Speci men Type: BLOOD SPECIMENOrdering Facility: [facility] Address: [address] [place] [address] Performed By: #### 2 4321-2, , 2776-05 ####[facility] LABORATORYCLIA [id number] [place] [address] [place] Chloride [Moles/Vol] 97 mmol/L Normal 97-105 [facility] Comment on above: Order Comment: Speci men Type: BLOOD SPECIMENOrdering Facility: [facility] Address: [address] [place] [address] Performed By: #### 2 4321-2, , 2776-05 ####[facility] LABORATORYCLIA [id number] [address] [place] CO2 [Moles/Vol] 27 mmol/L Normal 22-30 [facility] Comment on above: Order Comment: Speci men Type: BLOOD SPECIMENOrdering Facility: [facility] Address: [address] [place] [address] Performed By: #### 2 4321-2, , 2776-05 ####[facility] LABORATORYCLIA [id number] [address] [place] Creatinine [Mass/Vol] 0.63 mg/dL Low 0.73-1.22 [facility] Comment on above: Order Comment: Speci men Type: BLOOD SPECIMENOrdering Facility: [facility] Address: [address] [place] [address] Performed By: #### 2 4321-2, , 2776-05 ####[facility] LABORATORYCLIA [id number] [address] ESTIMATED GLOMERULAR FILTRATION RATE 103 mL/min/1.73m??? Normal >=60 [facility] Comment on above: Order Comment: Speci men Type: BLOOD SPECIMENOrdering Facility: [facility] Address: [address] [place] [address] Result Comment: Luzmaria mated Glomerular Filtration Rate [...] Performed By: #### 2 4321-2, , 2776-05 ####[facility] LABORATORYCLIA [id number] [place] [address] [place] Glucose [Mass/Vol] 136 mg/dL High 74-99 [facility] Comment on above: Order Comment: Shira feldman Type: BLOOD SPECIMENOrdering Facility: [facility] Address: [address] [place] [address] Result Comment: The [place] [employer] (ADA) provides guidance for cutoff [...] Standards of Medical Care in Diabetes 2016, [place] [employer]. Diabetes Care. 2016.39(Suppl 1). Performed By: #### 2 4321-2, , 2776-05 ####[facility] LABORATORYCLIA [id number] [place] [id number] [place] Potassium [Moles/Vol] 4.1 mmol/L Normal 3.7-5.1 [facility] Comment on above: Order Comment: Shira feldman Type: BLOOD SPECIMENOrdering Facility: [facility] Address: [address] [place], [place] [address] Performed By: #### 2 4321-2, , 2776-05 ####[facility] LABORATORYCLIA [id number] [place] [address] [place] Sodium [Moles/Vol] 133 mmol/L Low 136-144 [facility] Comment on above: Order Comment: Speci men Type: BLOOD SPECIMENOrdering Facility: [facility] Address: [address] [place] [address] Performed By: #### 2 4321-2, 16333-6, 2777-1 ####[facility] LABORATORYCLIA [id number] [address] [place] Urea nitrogen [Mass/Vol] 40 mg/dL High 9-24 [facility] Comment on above: Order Comment: Speci men Type: BLOOD SPECIMENOrdering Facility: [facility] Address: [address] [place] [address] Performed By: #### 2 4321-2, 50088-7, 2777-1 ####[facility] LABORATORYCLIA [id number] [address] OF [facility] CASE MANAGEMon 08-03-2021 CASE MANAGEM Normal [facility] CBC W Auto Differential pane l (Bld)on 08-03-2021 Basophils (Bld) [#/Vol] 0.06 10*3/uL Normal <0.11 [facility] Comment on above: Order Comment: Speci men Type: BLOOD SPECIMENOrdering Facility: [facility] Address: [address] [place] [address] Performed By: #### 5 7021-8 ####[facility] LABORATORYCLIA [id number] [address] [place] Basophils/100 WBC (Bld) 0.5 % Normal [facility] Comment on above: Order Comment: Speci men Type: BLOOD SPECIMENOrdering Facility: [facility] Address: [address] [place] [address] Performed By: #### 5 7021-8 ####[facility] LABORATORYCLIA [id number] [address] Differential cell count method Nom (Bld) Auto Normal [facility] Comment on above: Order Comment: Speci men Type: BLOOD SPECIMENOrdering Facility: [facility] Address: [address] [place] [address] Performed By: #### 5 7021-8 ####[facility] LABORATORYCLIA [id number] [address] [place] Eosinophils (Bld) [#/Vol] 0.23 10*3/uL Normal <0.46 [facility] Comment on above: Order Comment: Speci men Type: BLOOD SPECIMENOrdering Facility: [facility] Address: [address] [place] [address] Performed By: #### 5 7021-8 ####[facility] LABORATORYCLIA [id number] [address] OF [facility] Eosinophils/100 WBC (Bld) 1.8 % Normal [facility] Comment on above: Order Comment: Speci men Type: BLOOD SPECIMENOrdering Facility: [facility] Address: [address] [place] [address] Performed By: #### 5 7021-8 ####[facility] LABORATORYCLIA [id number] [address] [place] Erythrocyte distribution width (RBC) [Ratio] 17.6 % High 11.5-15.0 [facility] Comment on above: Order Comment: Speci men Type: BLOOD SPECIMENOrdering Facility: [facility] Address: [address] [place] [address] Performed By: #### 5 7021-8 ####[facility] LABORATORYCLIA [id number] [address] [place] Hematocrit (Bld) [Volume fraction] 30.7 % Low 39.0-51.0 [facility] Comment on above: Order Comment: Speci men Type: BLOOD SPECIMENOrdering Facility: [facility] Address: [address] [place] [address] Performed By: #### 5 7021-8 ####[facility]ORATORYCLIA [id number] [address] [place] Hemoglobin (Bld) [Mass/Vol] 9.3 g/dL Low 13.0-17.0 [facility] Comment on above: Order Comment: Speci men Type: BLOOD SPECIMENOrdering Facility: [facility] Address: [address] [place] [address] Performed By: #### 5 7021-8 ####[facility]ORATORYCLIA [id number] [address] IMMATURE GRAN % 0.6 % Normal [facility] Comment on above: Order Comment: Speci men Type: BLOOD SPECIMENOrdering Facility: [facility] Address: [address] [place] [address] Performed By: #### 5 7021-8 ####[facility] LABORATORYCLIA [id number] [address] IMMATURE GRAN ABS 0.08 k/uL Normal <0.10 [facility] Comment on above: Order Comment: Speci men Type: BLOOD SPECIMENOrdering Facility: [facility] Address: [address] [place] [address] Performed By: #### 5 7021-8 ####[facility] LABORATORYCLIA [id number] [address] [place] Lymphocytes (Bld) [#/Vol] 2.45 10*3/uL Normal 1.00-4.00 [facility] Comment on above: Order Comment: Speci men Type: BLOOD SPECIMENOrdering Facility: [facility] Address: [address] [place] [address] Performed By: #### 5 7021-8 ####[facility] LABORATORYCLIA [id number] [address] Lymphocytes/100 WBC (Bld) 19.7 % Normal [facility] Comment on above: Order Comment: Speci men Type: BLOOD SPECIMENOrdering Facility: [facility] Address: [address] [place] [address] Performed By: #### 5 7021-8 ####[facility] LABORATORYCLIA [id number] [address] MCH (RBC) [Entitic mass] 28.2 pg Normal 26.0-34.0 [facility] Comment on above: Order Comment: Speci men Type: BLOOD SPECIMENOrdering Facility: [facility] Address: [address] [place] [address] Performed By: #### 5 7021-8 ####[facility] LABORATORYCLIA [id number] [address] [place] [facility] MCHC (RBC) [Mass/Vol] 30.3 g/dL Low 30.5-36.0 [facility] Comment on above: Order Comment: Speci men Type: BLOOD SPECIMENOrdering Facility: [facility] Address: [address] [place] [address] Performed By: #### 5 7021-8 ####[facility] LABORATORYCLIA [id number] [address] MCV (RBC) [Entitic vol] 93.0 fL Normal 80.0-100.0 [facility] Comment on above: Order Comment: Speci men Type: BLOOD SPECIMENOrdering Facility: [facility] Address: [address] [place] [address] Performed By: #### 5 7021-8 ####[facility] LABORATORYCLIA [id number] [address] Monocytes (Bld) [#/Vol] 0.72 10*3/uL Normal <0.87 [facility] Comment on above: Order Comment: Speci men Type: BLOOD SPECIMENOrdering Facility: [facility] Address: [address] [place] [address] Performed By: #### 5 7021-8 ####[facility] LABORATORYCLIA [id number] [address] Monocytes/100 WBC (Bld) 5.8 % Normal [facility] Comment on above: Order Comment: Speci men Type: BLOOD SPECIMENOrdering Facility: [facility] Address: [address] [place] [address] Performed By: #### 5 7021-8 ####[facility]ORATORYCLIA [id number] [address] [place] Neutrophils (Bld) [#/Vol] 8.92 10*3/uL High 1.45-7.50 [facility] Comment on above: Order Comment: Speci men Type: BLOOD SPECIMENOrdering Facility: [facility] Address: [address] [place] [address] Performed By: #### 5 7021-8 ####[facility] LABORATORYCLIA [id number] [address] Neutrophils/100 WBC (Bld) 71.6 % Normal [facility] Comment on above: Order Comment: Speci men Type: BLOOD SPECIMENOrdering Facility: [facility] Address: [address] [place] [address] Performed By: #### 5 7021-8 ####[facility] LABORATORYCLIA [id number] [address] [place] [facility] Nucleated RBC (Bld) [#/Vol] 10*3/uL Normal <0.01 [facility] Comment on above: Order Comment: Speci men Type: BLOOD SPECIMENOrdering Facility: [facility] Address: [address] [place] [address] Performed By: #### 5 7021-8 ####[facility]ORATORYCLIA [id number] [address] Nucleated RBC/100 WBC (Bld) [Ratio] 0.0 /100 WBC Normal [facility] Comment on above: Order Comment: Speci men Type: BLOOD SPECIMENOrdering Facility: [facility] Address: [address] [place] [address] Performed By: #### 5 7021-8 ####[facility] LABORATORYCLIA [id number] [address] Platelet mean volume (Bld) [Entitic vol] 10.2 fL Normal 9.0-12.7 [facility] Comment on above: Order Comment: Speci men Type: BLOOD SPECIMENOrdering Facility: [facility] Address: [address] [place] [address] Performed By: #### 5 7021-8 ####[facility] LABORATORYCLIA [id number] [address] [place] Platelets (Bld) [#/Vol] 352 10*3/uL Normal 150-400 [facility] Comment on above: Order Comment: Speci men Type: BLOOD SPECIMENOrdering Facility: [facility] Address: [address] [place] [address] Performed By: #### 5 7021-8 ####[facility] LABORATORYCLIA [id number] [address] [place] [facility] RBC (Bld) [#/Vol] 3.30 10*6/uL Low 4.20-6.00 [facility] Comment on above: Order Comment: Speci men Type: BLOOD SPECIMENOrdering Facility: [facility] Address: [address] [place] [address] Performed By: #### 5 7021-8 ####[facility] LABORATORYCLIA [id number] [address] [place] WBC (Bld) [#/Vol] 12.46 10*3/uL High 3.70-11.00 [facility] Comment on above: Order Comment: Speci men Type: BLOOD SPECIMENOrdering Facility: [facility] Address: [address] [place] [address] Performed By: #### 5 7021-8 ####[facility] LABORATORYCLIA [id number] [address] CONSULT PROGon 08-03-2021 CONSULT PROG Normal [facility] Magnesium SerPl-mCncon 08-03 Magnesium [Mass/Vol] 2.2 mg/dL Normal 1.7-2.3 [facility] Comment on above: Order Comment: Speci men Type: BLOOD SPECIMENOrdering Facility: [facility] Address: [address] [place] [address] Performed By: #### 2 4321-2, 80449-4, 2776- ####[facility] LABORATORYCLIA [id number] [address] STATES OF [facility] NURSING PROGon 08-03-2021 NURSING PROG Normal [facility] Phosphate SerPl-mCncon 08-03 Phosphate [Mass/Vol] 4.2 mg/dL Normal 2.7-4.8 [facility] Comment on above: Order Comment: Speci men Type: BLOOD SPECIMENOrdering Facility: [facility] Address: [address] [place] [address] Performed By: #### 2 4321-2, 00959-7, 2776-05 ####[facility] LABORATORYCLIA [id number] [address] aPTT PPPon 08-03-2021 aPTT Coag (PPP) [Time] 50.0 s High 23.0-32.4 [facility] Comment on above: Order Comment: Speci men Type: BLOOD SPECIMENOrdering Facility: [facility] Address: [address] [place] [address] Performed By: #### 1 4979-9 ####[facility] LABORATORYCLIA [id number] [address] CBC W Auto Differential pane l (Bld)on 08-02-2021 Basophils (Bld) [#/Vol] 10*3/uL Normal <0.11 [facility] Comment on above: Order Comment: Speci men Type: BLOOD SPECIMENOrdering Facility: [facility] Address: [address] [place] [address] Performed By: #### 5 7021-8 ####[facility] LABORATORYCLIA [id number] [address] Basophils/100 WBC (Bld) 0.2 % Normal [facility] Comment on above: Order Comment: Speci men Type: BLOOD SPECIMENOrdering Facility: [facility] Address: [address] [place] [address] Performed By: #### 5 7021-8 ####[facility] LABORATORYCLIA [id number] [address] Differential cell count method Nom (Bld) Auto Normal [facility] Comment on above: Order Comment: Speci men Type: BLOOD SPECIMENOrdering Facility: [facility] Address: [address] [place] [address] Performed By: #### 5 7021-8 ####[facility] LABORATORYCLIA [id number] [address] Eosinophils (Bld) [#/Vol] 10*3/uL Normal <0.46 [facility] Comment on above: Order Comment: Speci men Type: BLOOD SPECIMENOrdering Facility: [facility] Address: [address] [place] [address] Performed By: #### 5 7021-8 ####[facility] LABORATORYCLIA [id number] [address] Eosinophils/100 WBC (Bld) 0.0 % Normal [facility] Comment on above: Order Comment: Speci men Type: BLOOD SPECIMENOrdering Facility: [facility] Address: [address] [place] [address] Performed By: #### 5 7021-8 ####[facility] LABORATORYCLIA [id number] [address] Erythrocyte distribution width (RBC) [Ratio] 17.3 % High 11.5-15.0 [facility] Comment on above: Order Comment: Speci men Type: BLOOD SPECIMENOrdering Facility: [facility] Address: [address] [place] [address] Performed By: #### 5 7021-8 ####[facility] LABORATORYCLIA [id number] [address] Hematocrit (Bld) [Volume fraction] 30.8 % Low 39.0-51.0 [facility] Comment on above: Order Comment: Speci men Type: BLOOD SPECIMENOrdering Facility: [facility] Address: [address] [place] [address] Performed By: #### 5 7021-8 ####[facility] LABORATORYCLIA [id number] [address] [facility] Hemoglobin (Bld) [Mass/Vol] 9.7 g/dL Low 13.0-17.0 [facility] Comment on above: Order Comment: Speci men Type: BLOOD SPECIMENOrdering Facility: [facility] Address: [address] [place] [address] Performed By: #### 5 7021-8 ####[facility] LABORATORYCLIA [id number] [address] IMMATURE GRAN % 0.5 % Normal [facility] Comment on above: Order Comment: Speci men Type: BLOOD SPECIMENOrdering Facility: [facility] Address: [address] [place] [address] Performed By: #### 5 7021-8 ####[facility] LABORATORYCLIA [id number] [address] IMMATURE GRAN ABS 0.07 k/uL Normal <0.10 [facility] [facility] Comment on above: Order Comment: Speci men Type: BLOOD SPECIMENOrdering Facility: [facility] Address: [address] [place] [address] Performed By: #### 5 7021-8 ####[facility] LABORATORYCLIA [id number] [address] Lymphocytes (Bld) [#/Vol] 1.60 10*3/uL Normal 1.00-4.00 [facility] Comment on above: Order Comment: Speci men Type: BLOOD SPECIMENOrdering Facility: [facility] Address: [address] [place] [address] Performed By: #### 5 7021-8 ####[facility] LABORATORYCLIA [id number] [address] Lymphocytes/100 WBC (Bld) 12.1 % Normal [facility] Comment on above: Order Comment: Speci men Type: BLOOD SPECIMENOrdering Facility: [facility] Address: [address] [place] [address] Performed By: #### 5 7021-8 ####[facility] LABORATORYCLIA [id number] [address] MCH (RBC) [Entitic mass] 28.6 pg Normal 26.0-34.0 [facility] Comment on above: Order Comment: Speci men Type: BLOOD SPECIMENOrdering Facility: [facility] Address: [address] [place] [address] Performed By: #### 5 7021-8 ####[facility] LABORATORYCLIA [id number] [address] MCHC (RBC) [Mass/Vol] 31.5 g/dL Normal 30.5-36.0 [facility] Comment on above: Order Comment: Speci men Type: BLOOD SPECIMENOrdering Facility: [facility] Address: [address] [place] [address] Performed By: #### 5 7021-8 ####[facility]ORATORYCLIA [id number] [address] MCV (RBC) [Entitic vol] 90.9 fL Normal 80.0-100.0 [facility] Comment on above: Order Comment: Speci men Type: BLOOD SPECIMENOrdering Facility: [facility] Address: [address] [place] [address] Performed By: #### 5 7021-8 ####[facility]ORATORYCLIA [id number] [address] Monocytes (Bld) [#/Vol] 0.39 10*3/uL Normal <0.87 [facility] Comment on above: Order Comment: Speci men Type: BLOOD SPECIMENOrdering Facility: [facility] Address: [address] [place] [address] Performed By: #### 5 7021-8 ####[facility]ATORYCLIA [id number] [address] Monocytes/100 WBC (Bld) 3.0 % Normal [facility] Comment on above: Order Comment: Speci men Type: BLOOD SPECIMENOrdering Facility: [facility] Address: [address] [place] [address] Performed By: #### 5 7021-8 ####[facility]ORATORYCLIA [id number] [address] [place] Neutrophils (Bld) [#/Vol] 11.09 10*3/uL High 1.45-7.50 [facility] Comment on above: Order Comment: Speci men Type: BLOOD SPECIMENOrdering Facility: [facility] Address: [address] [place] [address] Performed By: #### 5 7021-8 ####[facility]ORATORYCLIA [id number] [address] Neutrophils/100 WBC (Bld) 84.2 % Normal [facility] Comment on above: Order Comment: Speci men Type: BLOOD SPECIMENOrdering Facility: [facility] Address: [address] [place] [address] Performed By: #### 5 7021-8 ####[facility]ATORYCLIA [id number] [address] [place] Nucleated RBC (Bld) [#/Vol] 10*3/uL Normal <0.01 [facility] Comment on above: Order Comment: Speci men Type: BLOOD SPECIMENOrdering Facility: [facility] Address: [address] [place] [address] Performed By: #### 5 7021-8 ####[facility]ORATORYCLIA [id number] [address] [place] Nucleated RBC/100 WBC (Bld) [Ratio] 0.0 /100 WBC Normal [facility] Comment on above: Order Comment: Speci men Type: BLOOD SPECIMENOrdering Facility: [facility] Address: [address] [place] [address] Performed By: #### 5 7021-8 ####[facility]ORATORYCLIA [id number] [address] [place] Platelet mean volume (Bld) [Entitic vol] 10.0 fL Normal 9.0-12.7 [facility] Comment on above: Order Comment: Speci men Type: BLOOD SPECIMENOrdering Facility: [facility] Address: [address] [place] [address] Performed By: #### 5 7021-8 ####[facility]ORATORYCLIA [id number] [address] Platelets (Bld) [#/Vol] 358 10*3/uL Normal 150-400 [facility] Comment on above: Order Comment: Speci men Type: BLOOD SPECIMENOrdering Facility: [facility] Address: [address] [place] [address] Performed By: #### 5 7021-8 ####[facility]ORATORYCLIA [id number] [address] [place] RBC (Bld) [#/Vol] 3.39 10*6/uL Low 4.20-6.00 [facility] Comment on above: Order Comment: Speci men Type: BLOOD SPECIMENOrdering Facility: [facility] Address: [address] [place], [place] [address] Performed By: #### 5 7021-8 ####[facility]ORATORYCLIA [id number] [address] [place] WBC (Bld) [#/Vol] 13.17 10*3/uL High 3.70-11.00 [facility] Comment on above: Order Comment: Speci men Type: BLOOD SPECIMENOrdering Facility: [facility] Address: [address] [place] [address] Performed By: #### 5 7021-8 ####[facility]ORATORYCLIA [id number] [address] OF [facility] NURSING PROGon 08-02-2021 NURSING PROG Normal [facility] THERAPY NTon 08-02-2021 THERAPY NT Normal [facility] aPTT PPPon 08-02-2021 aPTT Coag (PPP) [Time] 54.9 s High 23.0-32.4 [facility] Comment on above: Order Comment: Speci men Type: BLOOD SPECIMENOrdering Facility: [facility] Address: [address] [place] [address] Performed By: #### 1 4979-9 ####[facility]ORATORYCLIA [id number] [address] [facility] ALLIED HEALTHon 08-01-2021 ALLIED HEALTH Normal [facility] ALLIED HEALTH Normal [facility] Basic metabolic 2000 panelon 08-01-2021 Anion gap [Moles/Vol] 12 mmol/L Normal 9-18 [facility] Comment on above: Order Comment: Speci men Type: BLOOD SPECIMENOrdering Facility: [facility] Address: [address] [place] [address] Performed By: #### 2 4321-2, 58112-8, 48614-8, 2777-1 ####[facility]ORATORYCLIA [id number] [place] [address] [place] Calcium [Mass/Vol] 9.1 mg/dL Normal 8.5-10.2 [facility] Comment on above: Order Comment: Speci men Type: BLOOD SPECIMENOrdering Facility: [facility] Address: [address] [place] [address] Performed By: #### 2 4321-2, 78128-0, 30393-9, 2777-1 ####[facility]ORATORYCLIA [id number] [place] [address] [place] Chloride [Moles/Vol] 96 mmol/L Low 97-105 [facility] Comment on above: Order Comment: Speci men Type: BLOOD SPECIMENOrdering Facility: [facility] Address: [address] [place] [address] Performed By: #### 2 4321-2, 69865-2, 10931-4, 2777- ####[facility]ORATORYCLIA [id number] [place] [address] [place] CO2 [Moles/Vol] 27 mmol/L Normal 22-30 [facility] Comment on above: Order Comment: Speci men Type: BLOOD SPECIMENOrdering Facility: [facility] Address: [address] [place] [address] Performed By: #### 2 4321-2, 33700-0, 20496-9, 2777- ####[facility]ORATORYCLIA [id number] [address] STATES OF [facility] Creatinine [Mass/Vol] 0.64 mg/dL Low 0.73-1.22 [facility] Comment on above: Order Comment: Speci men Type: BLOOD SPECIMENOrdering Facility: [facility] Address: [address] [place] [address] Performed By: #### 2 4321-2, 90676-4, 46067-6, 2777 ####[facility]ORATORYCLIA [id number] [address] [facility] ESTIMATED GLOMERULAR FILTRATION RATE 102 mL/min/1.73m??? Normal >=60 [facility] Comment on above: Order Comment: Speci men Type: BLOOD SPECIMENOrdering Facility: [facility] Address: [address] [place] [address] Result Comment: Luzmaria mated Glomerular Filtration Rate [...] actual GFR. Performed By: #### 2 4321-2, 71562-7, 87849-5, 7-1 ####[facility] LABORATORYCLIA [id number] [place] [address] [place] Glucose [Mass/Vol] 122 mg/dL High 74-99 [facility] Comment on above: Order Comment: Speci men Type: BLOOD SPECIMENOrdering Facility: [facility] Address: [address] [place] [address] Result Comment: The [place] [employer] (ADA) provides guidance for cutoff [...] Standards of Medical Care in Diabetes 2016, [place] [employer]. Diabetes Care. 2016.39(Suppl 1). Performed By: #### 2 4321-2, 01953-6, 35105-6, 2776-1 ####[facility]ORATORYCLIA [id number] [place] [address] [place] Potassium [Moles/Vol] 4.2 mmol/L Normal 3.7-5.1 [facility] Comment on above: Order Comment: Speci men Type: BLOOD SPECIMENOrdering Facility: [facility] Address: [address] [id number] Performed By: #### 2 4321-2, 08259-8, 09292-3, 2777-1 ####[facility]ORATORYCLIA [id number] [place] [address] [place] Sodium [Moles/Vol] 135 mmol/L Low 136-144 [facility] Comment on above: Order Comment: Speci men Type: BLOOD SPECIMENOrdering Facility: [facility] Address: [address] [place], [place] [id number] Performed By: #### 2 4321-2, 18609-7, 75971-0, 2777-1 ####[facility]ORATORYCLIA [id number] [place] [address] [place] Urea nitrogen [Mass/Vol] 36 mg/dL High 9-24 [facility] Comment on above: Order Comment: Speci men Type: BLOOD SPECIMENOrdering Facility: [facility] Address: [address] [place] [address] Performed By: #### 2 4321-2, 12482-0, 60207-8, 2777-1 ####[facility]ORATORYCLIA [id number] [address] [place] CASE MANAGEMon 08-01-2021 CASE MANAGEM Normal [facility] CBC W Auto Differential pane l (Bld)on 08-01-2021 Basophils (Bld) [#/Vol] 0.04 10*3/uL Normal <0.11 [facility] Comment on above: Order Comment: Speci men Type: BLOOD SPECIMENOrdering Facility: [facility] Address: [address] [place] [address] Performed By: #### 5 7021-8 ####[facility]ORATORYCLIA [id number] [address] [place] Basophils/100 WBC (Bld) 0.3 % Normal [facility] Comment on above: Order Comment: Speci men Type: BLOOD SPECIMENOrdering Facility: [facility] Address: [address] [place] [address] Performed By: #### 5 7021-8 ####[facility]ORATORYCLIA [id number] [address] [place] Differential cell count method Nom (Bld) Auto Normal [facility] Comment on above: Order Comment: Speci men Type: BLOOD SPECIMENOrdering Facility: [facility] Address: [address] [place] [address] Performed By: #### 5 7021-8 ####[facility]ORATORYCLIA [id number] [address] [place] Eosinophils (Bld) [#/Vol] 0.37 10*3/uL Normal <0.46 [facility] Comment on above: Order Comment: Speci men Type: BLOOD SPECIMENOrdering Facility: [facility] Address: [address] [place] [address] Performed By: #### 5 7021-8 ####[facility]ORATORYCLIA [id number] [address] [place] Eosinophils/100 WBC (Bld) 3.1 % Normal [facility] Comment on above: Order Comment: Speci men Type: BLOOD SPECIMENOrdering Facility: [facility] Address: [address] [place] [address] Performed By: #### 5 7021-8 ####[facility]ORATORYCLIA [id number] [address] [place] Erythrocyte distribution width (RBC) [Ratio] 17.5 % High 11.5-15.0 [facility] Comment on above: Order Comment: Speci men Type: BLOOD SPECIMENOrdering Facility: [facility] Address: [address] [place] [address] Performed By: #### 5 7021-8 ####[facility]ORATORYCLIA [id number] [address] [place] Hematocrit (Bld) [Volume fraction] 30.1 % Low 39.0-51.0 [facility] Comment on above: Order Comment: Speci men Type: BLOOD SPECIMENOrdering Facility: [facility] Address: [address] [place] [address] Performed By: #### 5 7021-8 ####[facility]ORATORYCLIA [id number] [address] [place] Hemoglobin (Bld) [Mass/Vol] 9.1 g/dL Low 13.0-17.0 [facility] Comment on above: Order Comment: Speci men Type: BLOOD SPECIMENOrdering Facility: [facility] Address: [address] [place] [address] Performed By: #### 5 7021-8 ####[facility]ORATORYCLIA [id number] [address] IMMATURE GRAN % 0.6 % Normal [facility] Comment on above: Order Comment: Speci men Type: BLOOD SPECIMENOrdering Facility: [facility] Address: [address] [place] [address] Performed By: #### 5 7021-8 ####[facility]ORATORYCLIA [id number] [address] IMMATURE GRAN ABS 0.07 k/uL Normal <0.10 [facility] Comment on above: Order Comment: Speci men Type: BLOOD SPECIMENOrdering Facility: [facility] Address: [address] [place] [address] Performed By: #### 5 7021-8 ####[facility]ORATORYCLIA [id number] [address] [place] [facility] Lymphocytes (Bld) [#/Vol] 2.05 10*3/uL Normal 1.00-4.00 [facility] Comment on above: Order Comment: Speci men Type: BLOOD SPECIMENOrdering Facility: [facility] Address: [address] [place] [address] Performed By: #### 5 7021-8 ####[facility]ATORYCLIA [id number] [address] Lymphocytes/100 WBC (Bld) 17.1 % Normal [facility] Comment on above: Order Comment: Speci men Type: BLOOD SPECIMENOrdering Facility: [facility] Address: [address] [place] [address] Performed By: #### 5 7021-8 ####[facility]ORATORYCLIA [id number] [address] MCH (RBC) [Entitic mass] 27.7 pg Normal 26.0-34.0 [facility] Comment on above: Order Comment: Speci men Type: BLOOD SPECIMENOrdering Facility: [facility] Address: [address] [place] [address] Performed By: #### 5 7021-8 ####[facility]ORATORYCLIA [id number] [address] [place] [facility] MCHC (RBC) [Mass/Vol] 30.2 g/dL Low 30.5-36.0 [facility] Comment on above: Order Comment: Speci men Type: BLOOD SPECIMENOrdering Facility: [facility] Address: [address] [place] [address] Performed By: #### 5 7021-8 ####[facility]ORATORYCLIA [id number] [address] MCV (RBC) [Entitic vol] 91.5 fL Normal 80.0-100.0 [facility] Comment on above: Order Comment: Speci men Type: BLOOD SPECIMENOrdering Facility: [facility] Address: [address] [place] [address] Performed By: #### 5 7021-8 ####[facility]ORATORYCLIA [id number] [address] Monocytes (Bld) [#/Vol] 0.53 10*3/uL Normal <0.87 [facility] Comment on above: Order Comment: Speci men Type: BLOOD SPECIMENOrdering Facility: [facility] Address: [address] [place] [address] Performed By: #### 5 7021-8 ####[facility]ORATORYCLIA [id number] [address] Monocytes/100 WBC (Bld) 4.4 % Normal [facility] Comment on above: Order Comment: Speci men Type: BLOOD SPECIMENOrdering Facility: [facility] Address: [address] [place] [address] Performed By: #### 5 7021-8 ####[facility]ORATORYCLIA [id number] [address] [place] Neutrophils (Bld) [#/Vol] 8.91 10*3/uL High 1.45-7.50 [facility] Comment on above: Order Comment: Speci men Type: BLOOD SPECIMENOrdering Facility: [facility] Address: [address] [place] [address] Performed By: #### 5 7021-8 ####[facility]ATORYCLIA [id number] [address] Neutrophils/100 WBC (Bld) 74.5 % Normal [facility] Comment on above: Order Comment: Speci men Type: BLOOD SPECIMENOrdering Facility: [facility] Address: [address] [place] [address] Performed By: #### 5 7021-8 ####[facility]ORATORYCLIA [id number] [address] [place] [facility] Nucleated RBC (Bld) [#/Vol] 10*3/uL Normal <0.01 [facility] Comment on above: Order Comment: Speci men Type: BLOOD SPECIMENOrdering Facility: [facility] Address: [address] [place] [address] Performed By: #### 5 7021-8 ####[facility]ATORYCLIA [id number] [address] Nucleated RBC/100 WBC (Bld) [Ratio] 0.0 /100 WBC Normal [facility] Comment on above: Order Comment: Speci men Type: BLOOD SPECIMENOrdering Facility: [facility] Address: [address] [place] [address] Performed By: #### 5 7021-8 ####[facility]ATORYCLIA [id number] [address] Platelet mean volume (Bld) [Entitic vol] 10.4 fL Normal 9.0-12.7 [facility] Comment on above: Order Comment: Speci men Type: BLOOD SPECIMENOrdering Facility: [facility] Address: [address] [place] [address] Performed By: #### 5 7021-8 ####[facility]ORATORYCLIA [id number] [place] [address] [place] Platelets (Bld) [#/Vol] 319 10*3/uL Normal 150-400 [facility] Comment on above: Order Comment: Speci men Type: BLOOD SPECIMENOrdering Facility: [facility] Address: [address] [place] [address] Performed By: #### 5 7021-8 ####[facility]ORATORYCLIA [id number] [place] [address] [place] RBC (Bld) [#/Vol] 3.29 10*6/uL Low 4.20-6.00 [facility] Comment on above: Order Comment: Speci men Type: BLOOD SPECIMENOrdering Facility: [facility] Address: [address] [place] [address] Performed By: #### 5 7021-8 ####[facility]ATORYCLIA [id number] [address] [place] WBC (Bld) [#/Vol] 11.97 10*3/uL High 3.70-11.00 [facility] Comment on above: Order Comment: Speci men Type: BLOOD SPECIMENOrdering Facility: [facility] Address: [address] [place] [address] Performed By: #### 5 7021-8 ####[facility]ATORYCLIA [id number] [address] [place] BRAIN WO IVCONon 08-02-19 CT BRAIN WO IVCON Normal [facility] Magnesium SerPl-mCncon 08-01 Magnesium [Mass/Vol] 2.4 mg/dL High 1.7-2.3 [facility] Comment on above: Order Comment: Speci men Type: BLOOD SPECIMENOrdering Facility: [facility] Address: [address] [place] [address] Performed By: #### 2 4321-2, 39469-8, 17788-7, 2777-1 ####[facility]ORATORYCLIA [id number] [address] [place] NURSING PROGon 08-01-2021 NURSING PROG Normal [facility] NUTRITIONon 08-01-2021 NUTRITION Normal [facility] Phosphate SerPl-mCncon 08-01 Phosphate [Mass/Vol] 3.3 mg/dL Normal 2.7-4.8 [facility] Comment on above: Order Comment: Speci men Type: BLOOD SPECIMENOrdering Facility: [facility] Address: [address] [place] [address] Performed By: #### 2 4321-2, 97618-8, 14490-2, 2777-1 ####[facility]ORATORYCLIA [id number] [address] [place] Prealbumin [Mass/Vol]on 07-06 Prealbumin Nephelometry [Mass/Vol] 30 mg/dL Normal 17-36 [facility] Comment on above: Order Comment: Speci men Type: BLOOD SPECIMENOrdering Facility: [facility] Address: [address] [place] [address] Performed By: #### 2 4321-2, 95985-0, 98695-7, 2777-1 ####[facility]ORATORYCLIA [id number] [address] [place] THERAPY NTon 08-01-2021 THERAPY NT Normal [facility] THERAPY NT Normal [facility] TYPE AND SCREENon 08-01-2021 ABO O Normal [facility] Comment on above: Order Comment: Speci men Type: BLOOD SPECIMENOrdering Facility: [facility] Address: [address] [place] [address] Performed By: #### T SCR ####[facility] BANKCLIA [id number] [address] HISTORICAL AB SCR STATUS Negative Normal [facility] Comment on above: Order Comment: Speci men Type: BLOOD SPECIMENOrdering Facility: [facility] Address: [address] [place], [place] [phone] Performed By: #### T SCR ####[facility]LO[facility] BANKCLIA [id number] [address] Rh Nom (Bld) Positive Normal [facility] Comment on above: Order Comment: Speci men Type: BLOOD SPECIMENOrdering Facility: [facility] Address: [address] [place] [address] Performed By: #### T SCR ####[facility] BLO[facility] BANKCLIA [id number] [address] TYPE AND SCREEN EXPIRATION 08/04/2021 23:59 Normal [facility] Comment on above: Order Comment: Speci men Type: BLOOD SPECIMENOrdering Facility: [facility] Address: [address] [place] [address] Performed By: #### T SCR ####[facility] BLOOD BANKCLIA [id number] [address] [facility] XR CHEST 1V FRONTALon 2021 XR CHEST 1V FRONTAL Normal [facility] aPTT PPPon 08-01-2021 aPTT Coag (PPP) [Time] 50.9 s High 23.0-32.4 [facility] Comment on above: Order Comment: Speci men Type: BLOOD SPECIMENOrdering Facility: [facility] Address: [address] [place] [address] Performed By: #### 1 4979-9 ####[facility] LABORATORYCLIA [id number] [address] CBC W Auto Differential pane l (Bld)on 07-31-2021 Basophils (Bld) [#/Vol] 0.05 10*3/uL Normal <0.11 [facility] Comment on above: Order Comment: Speci men Type: BLOOD SPECIMENOrdering Facility: [facility] Address: [address] [place] [address] Performed By: #### 5 7021-8 ####[facility] LABORATORYCLIA [id number] [address] [place] Basophils/100 WBC (Bld) 0.4 % Normal [facility] Comment on above: Order Comment: Speci men Type: BLOOD SPECIMENOrdering Facility: [facility] Address: [address] [place] [address] Performed By: #### 5 7021-8 ####[facility] LABORATORYCLIA [id number] [address] [place] Differential cell count method Nom (Bld) Auto Normal [facility] Comment on above: Order Comment: Speci men Type: BLOOD SPECIMENOrdering Facility: [facility] Address: [address] [place] [address] Performed By: #### 5 7021-8 ####[facility] LABORATORYCLIA [id number] [address] [place] Eosinophils (Bld) [#/Vol] 0.51 10*3/uL High <0.46 [facility] Comment on above: Order Comment: Speci men Type: BLOOD SPECIMENOrdering Facility: [facility] Address: [address] [place] [address] Performed By: #### 5 7021-8 ####[facility] LABORATORYCLIA [id number] [address] [place] Eosinophils/100 WBC (Bld) 4.5 % Normal [facility] Comment on above: Order Comment: Speci men Type: BLOOD SPECIMENOrdering Facility: [facility] Address: [address] [place] [address] Performed By: #### 5 7021-8 ####[facility] LABORATORYCLIA [id number] [address] [place] Erythrocyte distribution width (RBC) [Ratio] 17.5 % High 11.5-15.0 [facility] Comment on above: Order Comment: Speci men Type: BLOOD SPECIMENOrdering Facility: [facility] Address: [address] [place] [address] Performed By: #### 5 7021-8 ####[facility] LABORATORYCLIA [id number] [address] Hematocrit (Bld) [Volume fraction] 30.4 % Low 39.0-51.0 [facility] Comment on above: Order Comment: Speci men Type: BLOOD SPECIMENOrdering Facility: [facility] Address: [address] [place] [address] Performed By: #### 5 7021-8 ####[facility] LABORATORYCLIA [id number] [address] Hemoglobin (Bld) [Mass/Vol] 9.2 g/dL Low 13.0-17.0 [facility] Comment on above: Order Comment: Speci men Type: BLOOD SPECIMENOrdering Facility: [facility] Address: [address] [place] [address] Performed By: #### 5 7021-8 ####[facility]ORATORYCLIA [id number] [address] IMMATURE GRAN % 0.5 % Normal [facility] Comment on above: Order Comment: Speci men Type: BLOOD SPECIMENOrdering Facility: [facility] Address: [address] [place] [address] Performed By: #### 5 7021-8 ####[facility]ATORYCLIA [id number] [address] IMMATURE GRAN ABS 0.06 k/uL Normal <0.10 [facility] Comment on above: Order Comment: Speci men Type: BLOOD SPECIMENOrdering Facility: [facility] Address: [address] [place] [address] Performed By: #### 5 7021-8 ####[facility]ATORYCLIA [id number] [address] Lymphocytes (Bld) [#/Vol] 1.99 10*3/uL Normal 1.00-4.00 [facility] Comment on above: Order Comment: Speci men Type: BLOOD SPECIMENOrdering Facility: [facility] Address: [address] [place] [address] Performed By: #### 5 7021-8 ####[facility]ATORYCLIA [id number] [address] Lymphocytes/100 WBC (Bld) 17.6 % Normal [facility] Comment on above: Order Comment: Speci men Type: BLOOD SPECIMENOrdering Facility: [facility] Address: [address] [place] [address] Performed By: #### 5 7021-8 ####[facility]ORATORYCLIA [id number] [address] MCH (RBC) [Entitic mass] 28.4 pg Normal 26.0-34.0 [facility] Comment on above: Order Comment: Speci men Type: BLOOD SPECIMENOrdering Facility: [facility] Address: [address] [place] [address] Performed By: #### 5 7021-8 ####[facility]ORATORYCLIA [id number] [address] MCHC (RBC) [Mass/Vol] 30.3 g/dL Low 30.5-36.0 [facility] Comment on above: Order Comment: Speci men Type: BLOOD SPECIMENOrdering Facility: [facility] Address: [address] [place] [address] Performed By: #### 5 7021-8 ####[facility]ATORYCLIA [id number] [address] MCV (RBC) [Entitic vol] 93.8 fL Normal 80.0-100.0 [facility] Comment on above: Order Comment: Speci men Type: BLOOD SPECIMENOrdering Facility: [facility] Address: [address] [place] [address] Performed By: #### 5 7021-8 ####[facility]ATORYCLIA [id number] [address] Monocytes (Bld) [#/Vol] 0.57 10*3/uL Normal <0.87 [facility] Comment on above: Order Comment: Speci men Type: BLOOD SPECIMENOrdering Facility: [facility] Address: [address] [place] [address] Performed By: #### 5 7021-8 ####[facility] LABORATORYCLIA [id number] [address] [place] Monocytes/100 WBC (Bld) 5.0 % Normal [facility] Comment on above: Order Comment: Speci men Type: BLOOD SPECIMENOrdering Facility: [facility] Address: [address] [place] [address] Performed By: #### 5 7021-8 ####[facility]ATORYCLIA [id number] [address] [place] Neutrophils (Bld) [#/Vol] 8.12 10*3/uL High 1.45-7.50 [facility] Comment on above: Order Comment: Speci men Type: BLOOD SPECIMENOrdering Facility: [facility] Address: [address] [place] [address] Performed By: #### 5 7021-8 ####[facility]ATORYCLIA [id number] [address] [place] Neutrophils/100 WBC (Bld) 72.0 % Normal [facility] Comment on above: Order Comment: Speci men Type: BLOOD SPECIMENOrdering Facility: [facility] Address: [address] [place] [address] Performed By: #### 5 7021-8 ####[facility]ORATORYCLIA [id number] [address] [place] Nucleated RBC (Bld) [#/Vol] 10*3/uL Normal <0.01 [facility] Comment on above: Order Comment: Speci men Type: BLOOD SPECIMENOrdering Facility: [facility] Address: [address] [place] [address] Performed By: #### 5 7021-8 ####[facility]ORATORYCLIA [id number] [address] [place] Nucleated RBC/100 WBC (Bld) [Ratio] 0.0 /100 WBC Normal [facility] Comment on above: Order Comment: Speci men Type: BLOOD SPECIMENOrdering Facility: [facility] Address: [address] [place] [address] Performed By: #### 5 7021-8 ####[facility]ORATORYCLIA [id number] [place] [address] [place] Platelet mean volume (Bld) [Entitic vol] 10.9 fL Normal 9.0-12.7 [facility] Comment on above: Order Comment: Speci men Type: BLOOD SPECIMENOrdering Facility: [facility] Address: [address] [place] [address] Performed By: #### 5 7021-8 ####[facility]ATORYCLIA [id number] [address] [place] Platelets (Bld) [#/Vol] 303 10*3/uL Normal 150-400 [facility] Comment on above: Order Comment: Speci men Type: BLOOD SPECIMENOrdering Facility: [facility] Address: [address] [place] [address] Performed By: #### 5 7021-8 ####[facility]ATORYCLIA [id number] [address] [place] RBC (Bld) [#/Vol] 3.24 10*6/uL Low 4.20-6.00 [facility] Comment on above: Order Comment: Speci men Type: BLOOD SPECIMENOrdering Facility: [facility] Address: [address] [place] [address] Performed By: #### 5 7021-8 ####[facility]ATORYCLIA [id number] [address] [place] WBC (Bld) [#/Vol] 11.30 10*3/uL High 3.70-11.00 [facility] Comment on above: Order Comment: Speci men Type: BLOOD SPECIMENOrdering Facility: [facility] Address: [address] [place] [address] Performed By: #### 5 7021-8 ####[facility]ORATORYCLIA [id number] [address] OF [facility] NURSING PROGon 07-31-2021 NURSING PROG Normal [facility] aPTT PPPon 07-31-2021 aPTT Coag (PPP) [Time] 64.9 s High 23.0-32.4 [facility] Comment on above: Order Comment: Speci men Type: BLOOD SPECIMENOrdering Facility: [facility] Address: [address] [place] [address] Performed By: #### 1 4979-9 ####[facility]ORATORYCLIA [id number] [address] [facility] ALLIED HEALTHon 07-30-2021 ALLIED HEALTH Normal [facility] Bacteria CSF Culton 07-31-19 22 Bacteria identified Cx Nom (CSF) CULTURE, CSF: No growth 14 days GRAM STAIN: No organisms seen Few Mononuclear cells Rare Polymorphonuclear leukocytes Gram stain performed on cytospun specimen. Normal [facility] Comment on above: Performed By: #### 6 06-4 ####[facility]ORATORYCLIA [id number] [place] [address] [place] Basic metabolic 2000 panelon 07-30-2021 Anion gap [Moles/Vol] 9 mmol/L Normal 9-18 [facility] Comment on above: Order Comment: Speci men Type: BLOOD SPECIMENOrdering Facility: [facility] Address: [address] [place] [address] Performed By: #### 2 777-1, 48945-9, 90324-1 ####[facility]ORATORYCLIA [id number] [place] [address] [place] Calcium [Mass/Vol] 8.9 mg/dL Normal 8.5-10.2 [facility] Comment on above: Order Comment: Speci men Type: BLOOD SPECIMENOrdering Facility: [facility] Address: [address] [place] [address] Performed By: #### 2 777-1, 57618-8, ####[facility]ORATORYCLIA [id number] [place] [address] [place] Chloride [Moles/Vol] 95 mmol/L Low 97-105 [facility] Comment on above: Order Comment: Speci men Type: BLOOD SPECIMENOrdering Facility: [facility] Address: [address] [place] [address] Performed By: #### 2 777-1, 81796-4, ####[facility]ORATORYCLIA [id number] [address] [place] CO2 [Moles/Vol] 28 mmol/L Normal 22-30 [facility] Comment on above: Order Comment: Speci men Type: BLOOD SPECIMENOrdering Facility: [facility] Address: [address] [place] [address] Performed By: #### 2 777-1, 99476-8, ####[facility]ORATORYCLIA [id number] [address] [place] Creatinine [Mass/Vol] 0.67 mg/dL Low 0.73-1.22 [facility] Comment on above: Order Comment: Speci men Type: BLOOD SPECIMENOrdering Facility: [facility] Address: [address] [place] [address] Performed By: #### 2 777-1, , ####[facility]ORATORYCLIA [id number] [address] [place] ESTIMATED GLOMERULAR FILTRATION RATE 101 mL/min/1.73m??? Normal >=60 [facility] Comment on above: Order Comment: Speci men Type: BLOOD SPECIMENOrdering Facility: [facility] Address: [address] [place] [address] Result Comment: Luzmaria mated Glomerular Filtration Rate [...] actual GFR. Performed By: #### 2 777-1, 07265-6, ####[facility]ORATORYCLIA [id number] [place] [address] [place] Glucose [Mass/Vol] 125 mg/dL High 74-99 [facility] Comment on above: Order Comment: Shira feldman Type: BLOOD SPECIMENOrdering Facility: [facility] Address: [address] [place] [address] Result Comment: The [place] [employer] (ADA) provides guidance for cutoff [...] Standards of Medical Care in Diabetes 2016, [place] [employer]. Diabetes Care. 2016.39(Suppl 1). Performed By: #### 2 777-1, 29904-4, ####[facility]ORATORYCLIA [id number] [place] [address] [place] Potassium [Moles/Vol] 3.9 mmol/L Normal 3.7-5.1 [facility] Comment on above: Order Comment: Shira feldman Type: BLOOD SPECIMENOrdering Facility: [facility] Address: [address] [place] [address] Performed By: #### 2 777-1, 13778-6, ####[facility]ORATORYCLIA [id number] [place] [address] [place] Sodium [Moles/Vol] 132 mmol/L Low 136-144 [facility] Comment on above: Order Comment: Speci men Type: BLOOD SPECIMENOrdering Facility: [facility] Address: [address] [place] [address] Performed By: #### 2 777-1, 49371-6, ####[facility]ORATORYCLIA [id number] [address] [place] [facility] Urea nitrogen [Mass/Vol] 38 mg/dL High 9-24 [facility] Comment on above: Order Comment: Speci men Type: BLOOD SPECIMENOrdering Facility: [facility] Address: [address] [place] [address] Performed By: #### 2 777-1, , ####[facility]ATORYCLIA [id number] [address] STATES OF [facility] CBC W Auto Differential pane l (Bld)on 07-30-2021 Basophils (Bld) [#/Vol] 0.04 10*3/uL Normal <0.11 [facility] Comment on above: Order Comment: Speci men Type: BLOOD SPECIMENOrdering Facility: [facility] Address: [address] [place] [address] Performed By: #### 5 7021-8 ####[facility]ATORYCLIA [id number] [address] [place] Basophils/100 WBC (Bld) 0.4 % Normal [facility] Comment on above: Order Comment: Speci men Type: BLOOD SPECIMENOrdering Facility: [facility] Address: [address] [place] [address] Performed By: #### 5 7021-8 ####[facility]ATORYCLIA [id number] [address] Differential cell count method Nom (Bld) Auto Normal [facility] Comment on above: Order Comment: Speci men Type: BLOOD SPECIMENOrdering Facility: [facility] Address: [address] [place] [address] Performed By: #### 5 7021-8 ####[facility]ORATORYCLIA [id number] [address] STATES OF [facility] Eosinophils (Bld) [#/Vol] 0.30 10*3/uL Normal <0.46 [facility] Comment on above: Order Comment: Speci men Type: BLOOD SPECIMENOrdering Facility: [facility] Address: [address] [place] [address] Performed By: #### 5 7021-8 ####[facility]ORATORYCLIA [id number] [address] Eosinophils/100 WBC (Bld) 2.7 % Normal [facility] Comment on above: Order Comment: Speci men Type: BLOOD SPECIMENOrdering Facility: [facility] Address: [address] [place] [address] Performed By: #### 5 7021-8 ####[facility]ATORYCLIA [id number] [address] Erythrocyte distribution width (RBC) [Ratio] 17.2 % High 11.5-15.0 [facility] Comment on above: Order Comment: Speci men Type: BLOOD SPECIMENOrdering Facility: [facility] Address: [address] [place] [address] Performed By: #### 5 7021-8 ####[facility]ATORYCLIA [id number] [address] Hematocrit (Bld) [Volume fraction] 30.8 % Low 39.0-51.0 [facility] Comment on above: Order Comment: Speci men Type: BLOOD SPECIMENOrdering Facility: [facility] Address: [address] [place] [address] Performed By: #### 5 7021-8 ####[facility]ATORYCLIA [id number] [address] Hemoglobin (Bld) [Mass/Vol] 9.4 g/dL Low 13.0-17.0 [facility] Comment on above: Order Comment: Speci men Type: BLOOD SPECIMENOrdering Facility: [facility] Address: [address] [place] [address] Performed By: #### 5 7021-8 ####[facility]ATORYCLIA [id number] [address] IMMATURE GRAN % 0.5 % Normal [facility] Comment on above: Order Comment: Speci men Type: BLOOD SPECIMENOrdering Facility: [facility] Address: [address] [place] [address] Performed By: #### 5 7021-8 ####[facility]ATORYCLIA [id number] [address] IMMATURE GRAN ABS 0.06 k/uL Normal <0.10 [facility] Comment on above: Order Comment: Speci men Type: BLOOD SPECIMENOrdering Facility: [facility] Address: [address] [place] [address] Performed By: #### 5 7021-8 ####[facility]ORATORYCLIA [id number] [address] Lymphocytes (Bld) [#/Vol] 1.68 10*3/uL Normal 1.00-4.00 [facility] Comment on above: Order Comment: Speci men Type: BLOOD SPECIMENOrdering Facility: [facility] Address: [address] [place] [address] Performed By: #### 5 7021-8 ####[facility]ATORYCLIA [id number] [address] Lymphocytes/100 WBC (Bld) 15.3 % Normal [facility] Comment on above: Order Comment: Speci men Type: BLOOD SPECIMENOrdering Facility: [facility] Address: [address] [place] [address] Performed By: #### 5 7021-8 ####[facility]ORATORYCLIA [id number] [address] [place] [facility] MCH (RBC) [Entitic mass] 28.0 pg Normal 26.0-34.0 [facility] Comment on above: Order Comment: Speci men Type: BLOOD SPECIMENOrdering Facility: [facility] Address: [address] [place] [address] Performed By: #### 5 7021-8 ####[facility]ATORYCLIA [id number] [address] MCHC (RBC) [Mass/Vol] 30.5 g/dL Normal 30.5-36.0 [facility] Comment on above: Order Comment: Speci men Type: BLOOD SPECIMENOrdering Facility: [facility] Address: [address] [place] [address] Performed By: #### 5 7021-8 ####[facility]ORATORYCLIA [id number] [address] OF [facility] MCV (RBC) [Entitic vol] 91.7 fL Normal 80.0-100.0 [facility] Comment on above: Order Comment: Speci men Type: BLOOD SPECIMENOrdering Facility: [facility] Address: [address] [place] [address] Performed By: #### 5 7021-8 ####[facility]ATORYCLIA [id number] [address] Monocytes (Bld) [#/Vol] 0.53 10*3/uL Normal <0.87 [facility] Comment on above: Order Comment: Speci men Type: BLOOD SPECIMENOrdering Facility: [facility] Address: [address] [place] [address] Performed By: #### 5 7021-8 ####[facility]ATORYCLIA [id number] [address] Monocytes/100 WBC (Bld) 4.8 % Normal [facility] Comment on above: Order Comment: Speci men Type: BLOOD SPECIMENOrdering Facility: [facility] Address: [address] [place] [address] Performed By: #### 5 7021-8 ####[facility]ORATORYCLIA [id number] [place] [address] [place] Neutrophils (Bld) [#/Vol] 8.39 10*3/uL High 1.45-7.50 [facility] Comment on above: Order Comment: Speci men Type: BLOOD SPECIMENOrdering Facility: [facility] Address: [address] [place] [address] Performed By: #### 5 7021-8 ####[facility]ORATORYCLIA [id number] [address] [place] Neutrophils/100 WBC (Bld) 76.3 % Normal [facility] Comment on above: Order Comment: Speci men Type: BLOOD SPECIMENOrdering Facility: [facility] Address: [address] [place] [address] Performed By: #### 5 7021-8 ####[facility]ORATORYCLIA [id number] [address] [place] Nucleated RBC (Bld) [#/Vol] 10*3/uL Normal <0.01 [facility] Comment on above: Order Comment: Speci men Type: BLOOD SPECIMENOrdering Facility: [facility] Address: [address] [place] [address] Performed By: #### 5 7021-8 ####[facility]ATORYCLIA [id number] [address] [place] Nucleated RBC/100 WBC (Bld) [Ratio] 0.0 /100 WBC Normal [facility] Comment on above: Order Comment: Speci men Type: BLOOD SPECIMENOrdering Facility: [facility] Address: [address] [place] [address] Performed By: #### 5 7021-8 ####[facility]ATORYCLIA [id number] [address] [place] Platelet mean volume (Bld) [Entitic vol] 10.9 fL Normal 9.0-12.7 [facility] Comment on above: Order Comment: Speci men Type: BLOOD SPECIMENOrdering Facility: [facility] Address: [address] [place], [place] [address] Performed By: #### 5 7021-8 ####[facility]ATORYCLIA [id number] [address] Platelets (Bld) [#/Vol] 287 10*3/uL Normal 150-400 [facility] Comment on above: Order Comment: Speci men Type: BLOOD SPECIMENOrdering Facility: [facility] Address: [address] [place], [place] [address] Performed By: #### 5 7021-8 ####[facility]ATORYCLIA [id number] [address] RBC (Bld) [#/Vol] 3.36 10*6/uL Low 4.20-6.00 [facility] Comment on above: Order Comment: Speci men Type: BLOOD SPECIMENOrdering Facility: [facility] Address: [address] [place], [place] [address] Performed By: #### 5 7021-8 ####[facility]ORATORYCLIA [id number] [address] WBC (Bld) [#/Vol] 11.00 10*3/uL Normal 3.70-11.00 [facility] Comment on above: Order Comment: Speci men Type: BLOOD SPECIMENOrdering Facility: [facility] Address: [address] [place], [place] [address] Performed By: #### 5 7021-8 ####[facility]ATORYCLIA [id number] [address] CSF MANUAL DIFFon 07-30-2021 DIF TTL, CSF 100 cells counted Normal [facility] Comment on above: Order Comment: Speci men Type: CEREBROSPINAL FLUIDOrdering Facility: [facility] Address: [address] [place] [address] Performed By: #### L [id number], IRT0406, 01550-3 ####[facility]ATORYCLIA [id number] [address] [place] EOSIN%, CSF 0 % Normal [facility] Comment on above: Order Comment: Speci men Type: CEREBROSPINAL FLUIDOrdering Facility: [facility] Address: [address] [place] [address] Performed By: #### L [id number], IQK1413, 46894-8 ####[facility]ORATORYCLIA [id number] [place] [address] [place] LYMPH%, CSF 75 % Normal 50-90 [facility] Comment on above: Order Comment: Speci men Type: CEREBROSPINAL FLUIDOrdering Facility: [facility] Address: [address] [place] [address] Performed By: #### L [id number], [id number], 57911-6 ####[facility]ORATORYCLIA [id number] [place] [address] [place] MACRO%, CSF 9 % High <1 [facility] Comment on above: Order Comment: Speci men Type: CEREBROSPINAL FLUIDOrdering Facility: [facility] Address: [address] [place] [address] Performed By: #### L [id number], WNY0286, 77305-8 ####[facility]ORATORYCLIA [id number] [place] [address] [place] MONO%, CSF 10 % Normal 10-50 [facility] Comment on above: Order Comment: Speci men Type: CEREBROSPINAL FLUIDOrdering Facility: [facility] Address: [address] [place] [address] Performed By: #### L [id number], [id number], 63674-8 ####[facility]ORATORYCLIA [id number] [address] [place] OTHER CL%, CSF 4 % Normal [facility] Comment on above: Order Comment: Speci men Type: CEREBROSPINAL FLUIDOrdering Facility: [facility] Address: [address] [place] [address] Result Comment: Path review to follow. Performed By: #### L [id number], [id number], 83669-0 ####[facility]ORATORYCLIA [id number] [place] [address] [place] REAC LYMPH %, CSF 2 % Normal [facility] Comment on above: Order Comment: Speci men Type: CEREBROSPINAL FLUIDOrdering Facility: [facility] Address: [address] [place] [address] Performed By: #### L [id number], UVP8032, 22689-4 ####[facility]ORATORYCLIA [id number] [address] [place] CSF PATHOLOGIST INTERP (LAB REFLEX ORDER-NO BILL)on 07-30-2021 CSF STAFF REVIEW Negative Normal [facility] Comment on above: Order Comment: Speci men Type: CEREBROSPINAL FLUIDOrdering Facility: [facility] Address: [address] [place] [address] Performed By: #### L [id number], EIW4586, 92850-6 ####[facility]ORATORYCLIA [id number] [address] Pathologist name Reviewed by Eloise rebolledo MD [facility] Comment on above: Order Comment: Speci men Type: CEREBROSPINAL FLUIDOrdering Facility: [facility] Address: [address] [place] [address] Performed By: #### L [id number], [id number], 72935-9 ####[facility]ORATORYCLIA [id number] [address] [place] CT BRAIN WO IVCONon 07-31-[address] BRAIN WO IVCON Normal [facility] Cell count panel (CSF)on Clarity (CSF) Clear Normal Clear [facility] Comment on above: Order Comment: Speci men Type: CEREBROSPINAL FLUIDOrdering Facility: [facility] Address: [address] [place] [address] Performed By: #### L [id number], [id number], 40819-2 ####[facility]ATORYCLIA [id number] [address] [place] Clarity (Unsp spec) Clear Normal Clear [facility] Comment on above: Order Comment: Speci men Type: CEREBROSPINAL FLUIDOrdering Facility: [facility] Address: [facility] [place] [address] Performed By: #### L [id number], [id number], 48037-2 ####[facility]ORATORYCLIA [id number] [address] Color (CSF) Colorless Normal Colorless [facility] Comment on above: Order Comment: Speci men Type: CEREBROSPINAL FLUIDOrdering Facility: [facility] Address: [address] [place] [address] Performed By: #### L [id number], STM7405, 47355-6 ####[facility]ATORYCLIA [id number] [address] Color (Spun CSF) Colorless Normal Colorless [facility] Comment on above: Order Comment: Speci men Type: CEREBROSPINAL FLUIDOrdering Facility: [facility] Address: [address] [place] [address] Performed By: #### L [id number], [id number], 87749-0 ####[facility]ORATORYCLIA [id number] [address] CSF TU[employer] Normal [facility] Comment on above: Order Comment: Speci men Type: CEREBROSPINAL FLUIDOrdering Facility: [facility] Address: [address] [place] [address] Performed By: #### L [id number], [id number], 06479-9 ####[facility]ATORYCLIA [id number] [address] RBC Manual cnt (CSF) [#/Vol] 9 cells/uL High 0-5 [facility] Comment on above: Order Comment: Speci men Type: CEREBROSPINAL FLUIDOrdering Facility: [facility] Address: [address] [place] [address] Performed By: #### L PW1001, KNC6698, 62887-2 ####[facility]ATORYCLIA [id number] [place] [address] [place] WBC Manual cnt (CSF) [#/Vol] 8 cells/uL High 0-5 [facility] Comment on above: Order Comment: Speci men Type: CEREBROSPINAL FLUIDOrdering Facility: [facility] Address: [address] [place] [address] Performed By: #### L [id number], BWS3426, 66018-6 ####[facility]ORATORYCLIA [id number] [address] Glucose CSF-ncon Glucose (CSF) [Mass/Vol] 65 mg/dL Normal 40-70 [facility] Comment on above: Order Comment: Speci men Type: CEREBROSPINAL FLUIDOrdering Facility: [facility] Address: [address] [place] [address] Result Comment: Lumb ar CSF glucose values of healthy patients are approximately 60% of the plasma values and must always be compared with a concurrently measured plasma value for adequate clinical interpretation.References: 1. Glucose HK (GLUC3) [package insert V 12.0 Haitian]. [employer], [place], [place]. September 2015. 2. Michelle Moore, Loki, H. (2015). Chapter 7: Glucose and Lactate. Marianela Alcocer al.(eds.), Cerebrospinal Fluid in Clinical Neurology. [employer]arns: [employer]. Performed By: #### 2 342-4, 2880-3 ####[facility]ATORYCLIA [id number] [address] [place] [facility] Magnesium SerPl-ncon 07-30 Magnesium [Mass/Vol] 2.5 mg/dL High 1.7-2.3 [facility] Comment on above: Order Comment: Speci men Type: BLOOD SPECIMENOrdering Facility: [facility] Address: [address] [place] [address] Performed By: #### 2 777-1, 53089-3, 67191-4 ####[facility]ATORYCLIA [id number] [address] [place] NURSING PROGon 07-30-2021 NURSING PROG Normal [facility] Phosphate SerPl-mCncon 07-30 Phosphate [Mass/Vol] 2.4 mg/dL Low 2.7-4.8 [facility] Comment on above: Order Comment: Speci men Type: BLOOD SPECIMENOrdering Facility: [facility] Address: [address] [place] [address] Performed By: #### 2 777-1, 93966-9, 94703-7 ####[facility]ATORYCLIA [id number] [address] Prot CSF-mCncon 07-30-2021 Protein (CSF) [Mass/Vol] 50 mg/dL High 15-45 [facility] Comment on above: Order Comment: Speci men Type: CEREBROSPINAL FLUIDOrdering Facility: [facility] Address: [address] [place] [address] Performed By: #### 2 342-4, 2880-3 ####[facility]ORATORYCLIA [id number] [address] [place] aPTT PPPon 07-30-2021 aPTT Coag (PPP) [Time] 64.1 s High 23.0-32.4 [facility] Comment on above: Order Comment: Speci men Type: BLOOD SPECIMENOrdering Facility: [facility] Address: [address] [place] [address] Performed By: #### 1 4979-9 ####[facility]ATORYCLIA [id number] [address] [place] Bacteria CSF Culton 07-30-19 22 Bacteria identified Cx Nom (CSF) CULTURE, CSF: No growth 14 days GRAM STAIN: No cells or organisms seen Gram stain performed on cytospun specimen. Gram stain confirmed by microbiology Normal [facility] Comment on above: Performed By: #### 6 06-4 ####[facility]ATORYCLIA [id number] [address] [place] CASE MANAGEMon 07-29-2021 CASE MANAGEM Normal [facility] CBC W Auto Differential pane l (Bld)on 07-29-2021 Basophils (Bld) [#/Vol] 0.03 10*3/uL Normal <0.11 [facility] Comment on above: Order Comment: Speci men Type: BLOOD SPECIMENOrdering Facility: [facility] Address: [address] [place] [address] Performed By: #### 5 7021-8 ####[facility]ATORYCLIA [id number] [address] [place] Basophils/100 WBC (Bld) 0.3 % Normal [facility] Comment on above: Order Comment: Speci men Type: BLOOD SPECIMENOrdering Facility: [facility] Address: [address] [place] [address] Performed By: #### 5 7021-8 ####[facility]ATORYCLIA [id number] [address] [place] Differential cell count method Nom (Bld) Auto Normal [facility] Comment on above: Order Comment: Speci men Type: BLOOD SPECIMENOrdering Facility: [facility] Address: [address] [place] [address] Performed By: #### 5 7021-8 ####[facility]ATORYCLIA [id number] [address] [place] Eosinophils (Bld) [#/Vol] 0.40 10*3/uL Normal <0.46 [facility] Comment on above: Order Comment: Speci men Type: BLOOD SPECIMENOrdering Facility: [facility] Address: [address] [place] [address] Performed By: #### 5 7021-8 ####[facility]ATORYCLIA [id number] [address] Eosinophils/100 WBC (Bld) 3.9 % Normal [facility] Comment on above: Order Comment: Speci men Type: BLOOD SPECIMENOrdering Facility: [facility] Address: [address] [place], [place] [address] Performed By: #### 5 7021-8 ####[facility]ORATORYCLIA [id number] [address] Erythrocyte distribution width (RBC) [Ratio] 17.1 % High 11.5-15.0 [facility] Comment on above: Order Comment: Speci men Type: BLOOD SPECIMENOrdering Facility: [facility] Address: [address] [place] [address] Performed By: #### 5 7021-8 ####[facility]ORATORYCLIA [id number] [address] Hematocrit (Bld) [Volume fraction] 32.0 % Low 39.0-51.0 [facility] Comment on above: Order Comment: Speci men Type: BLOOD SPECIMENOrdering Facility: [facility] Address: [address] [place] [address] Performed By: #### 5 7021-8 ####[facility]ATORYCLIA [id number] [address] Hemoglobin (Bld) [Mass/Vol] 9.7 g/dL Low 13.0-17.0 [facility] Comment on above: Order Comment: Speci men Type: BLOOD SPECIMENOrdering Facility: [facility] Address: [address] [place] [address] Performed By: #### 5 7021-8 ####[facility]ATORYCLIA [id number] [address] IMMATURE GRAN % 0.6 % Normal [facility] Comment on above: Order Comment: Speci men Type: BLOOD SPECIMENOrdering Facility: [facility] Address: [address] [place] [address] Performed By: #### 5 7021-8 ####[facility]ORYCLIA [id number] [address] IMMATURE GRAN ABS 0.06 k/uL Normal <0.10 [facility] Comment on above: Order Comment: Speci men Type: BLOOD SPECIMENOrdering Facility: [facility] Address: [address] [place] [address] Performed By: #### 5 7021-8 ####[facility]ATORYCLIA [id number] [address] Lymphocytes (Bld) [#/Vol] 1.96 10*3/uL Normal 1.00-4.00 [facility] Comment on above: Order Comment: Speci men Type: BLOOD SPECIMENOrdering Facility: [facility] Address: [address] [place] [address] Performed By: #### 5 7021-8 ####[facility]ATORYCLIA [id number] [address] Lymphocytes/100 WBC (Bld) 19.0 % Normal [facility] Comment on above: Order Comment: Speci men Type: BLOOD SPECIMENOrdering Facility: [facility] Address: [address] [place] [address] Performed By: #### 5 7021-8 ####[facility]ATORYCLIA [id number] [address] MCH (RBC) [Entitic mass] 28.0 pg Normal 26.0-34.0 [facility] Comment on above: Order Comment: Speci men Type: BLOOD SPECIMENOrdering Facility: [facility] Address: [address] [place] [address] Performed By: #### 5 7021-8 ####[facility]ORATORYCLIA [id number] [address] [place] MCHC (RBC) [Mass/Vol] 30.3 g/dL Low 30.5-36.0 [facility] Comment on above: Order Comment: Speci men Type: BLOOD SPECIMENOrdering Facility: [facility] Address: [address] [place] [address] Performed By: #### 5 7021-8 ####[facility]ORATORYCLIA [id number] [place] [address] [place] MCV (RBC) [Entitic vol] 92.5 fL Normal 80.0-100.0 [facility] Comment on above: Order Comment: Speci men Type: BLOOD SPECIMENOrdering Facility: [facility] Address: [address] [place] [address] Performed By: #### 5 7021-8 ####[facility]ATORYCLIA [id number] [place] [address] [place] Monocytes (Bld) [#/Vol] 0.53 10*3/uL Normal <0.87 [facility] Comment on above: Order Comment: Speci men Type: BLOOD SPECIMENOrdering Facility: [facility] Address: [address] [place] [address] Performed By: #### 5 7021-8 ####[facility]ATORYCLIA [id number] [address] Monocytes/100 WBC (Bld) 5.2 % Normal [facility] Comment on above: Order Comment: Speci men Type: BLOOD SPECIMENOrdering Facility: [facility] Address: [address] [place] [address] Performed By: #### 5 7021-8 ####[facility]ATORYCLIA [id number] [address] [place] Neutrophils (Bld) [#/Vol] 7.31 10*3/uL Normal 1.45-7.50 [facility] Comment on above: Order Comment: Speci men Type: BLOOD SPECIMENOrdering Facility: [facility] Address: [address] [place] [address] Performed By: #### 5 7021-8 ####[facility]ATORYCLIA [id number] [address] [place] Neutrophils/100 WBC (Bld) 71.0 % Normal [facility] Comment on above: Order Comment: Speci men Type: BLOOD SPECIMENOrdering Facility: [facility] Address: [address] [place] [address] Performed By: #### 5 7021-8 ####[facility]ATORYCLIA [id number] [address] [place] Nucleated RBC (Bld) [#/Vol] 10*3/uL Normal <0.01 [facility] Comment on above: Order Comment: Speci men Type: BLOOD SPECIMENOrdering Facility: [facility] Address: [address] [place] [address] Performed By: #### 5 7021-8 ####[facility]ATORYCLIA [id number] [address] [place] Nucleated RBC/100 WBC (Bld) [Ratio] 0.0 /100 WBC Normal [facility] Comment on above: Order Comment: Speci men Type: BLOOD SPECIMENOrdering Facility: [facility] Address: [address] [place] [address] Performed By: #### 5 7021-8 ####[facility]ATORYCLIA [id number] [address] Platelet mean volume (Bld) [Entitic vol] 11.2 fL Normal 9.0-12.7 [facility] Comment on above: Order Comment: Speci men Type: BLOOD SPECIMENOrdering Facility: [facility] Address: [address] [place] [address] Performed By: #### 5 7021-8 ####[facility]ATORYCLIA [id number] [address] [place] Platelets (Bld) [#/Vol] 276 10*3/uL Normal 150-400 [facility] Comment on above: Order Comment: Speci men Type: BLOOD SPECIMENOrdering Facility: [facility] Address: [address] [place] [address] Performed By: #### 5 7021-8 ####[facility]ATORYCLIA [id number] [address] [place] RBC (Bld) [#/Vol] 3.46 10*6/uL Low 4.20-6.00 [facility] Comment on above: Order Comment: Speci men Type: BLOOD SPECIMENOrdering Facility: [facility] Address: [address] [place] [address] Performed By: #### 5 7021-8 ####[facility]ATORYCLIA [id number] [place] [address] [place] WBC (Bld) [#/Vol] 10.29 10*3/uL Normal 3.70-11.00 [facility] Comment on above: Order Comment: Speci men Type: BLOOD SPECIMENOrdering Facility: [facility] Address: [address] [place] [address] Performed By: #### 5 7021-8 ####[facility]ATORYCLIA [id number] [address] OF [facility] NURSING PROGon 07-29-2021 NURSING PROG Normal [facility] THERAPY NTon 07-29-2021 THERAPY NT Normal [facility] aPTT PPPon 07-29-2021 aPTT Coag (PPP) [Time] 59.2 s High 23.0-32.4 [facility] Comment on above: Order Comment: Speci men Type: BLOOD SPECIMENOrdering Facility: [facility] Address: [address] [place] [address] Performed By: #### 1 4979-9 ####[facility]ATORYCLIA [id number] [address] [place] ALLIED HEALTHon 07-28-2021 ALLIED HEALTH Normal [facility] Basic metabolic 2000 panelon 07-28-2021 Anion gap [Moles/Vol] 7 mmol/L Low 9-18 [facility] Comment on above: Order Comment: Speci men Type: BLOOD SPECIMENOrdering Facility: [facility] Address: [address] [place] [address] Performed By: #### 1 4338-8, 90560-8, 2777-1, 64048-3 ####[facility]ATORYCLIA [id number] [place] [address] [place] Calcium [Mass/Vol] 9.0 mg/dL Normal 8.5-10.2 [facility] Comment on above: Order Comment: Speci men Type: BLOOD SPECIMENOrdering Facility: [facility] Address: [address] [place] [address] Performed By: #### 1 4338-8, 24502-6, 2777-1, 66910-8 ####[facility]ORATORYCLIA [id number] [place] [address] [place] Chloride [Moles/Vol] 94 mmol/L Low 97-105 [facility] Comment on above: Order Comment: Speci men Type: BLOOD SPECIMENOrdering Facility: [facility] Address: [address] [place] [address] Performed By: #### 1 4338-8, 57834-1, 277-1, 87088-6 ####[facility]ATORYCLIA [id number] [place] [address] [place] CO2 [Moles/Vol] 31 mmol/L High 22-30 [facility] Comment on above: Order Comment: Speci men Type: BLOOD SPECIMENOrdering Facility: [facility] Address: [address] [place] [address] Performed By: #### 1 4338-8, 46030-3, 2776-1, 21192-2 ####[facility]ATORYCLIA [id number] [place] [address] [place] Creatinine [Mass/Vol] 0.75 mg/dL Normal 0.73-1.22 [facility] Comment on above: Order Comment: Speci men Type: BLOOD SPECIMENOrdering Facility: [facility] Address: [address] [place] [address] Performed By: #### 1 4338-8, 73773-6, 2776-1, 00040-4 ####[facility]ATORYCLIA [id number] [place] [address] [place] ESTIMATED GLOMERULAR FILTRATION RATE 98 mL/min/1.73m??? Normal >=60 [facility] Comment on above: Order Comment: Shira feldman Type: BLOOD SPECIMENOrdering Facility: [facility] Address: [address] [place] [address] Result Comment: Luzmaria mated Glomerular Filtration Rate [...] actual GFR. Performed By: #### 1 4338-8, 79421-8, 2777-1, 31031-7 ####[facility]NACLIA [id number] [place] [address] [place] Glucose [Mass/Vol] 122 mg/dL High 74-99 [facility] Comment on above: Order Comment: Shira feldman Type: BLOOD SPECIMENOrdering Facility: [facility] Address: [address] [phone] Result Comment: The [place] [employer] (ADA) provides guidance for cutoff [...] Standards of Medical Care in Diabetes 2016, [place] [employer]. Diabetes Care. 2016.39(Suppl 1). Performed By: #### 1 4338-8, 62077-4, 2777-1, 89315-3 ####[facility]ATORYCLIA [id number] [place] [address] [place] Potassium [Moles/Vol] 4.0 mmol/L Normal 3.7-5.1 [facility] Comment on above: Order Comment: Shira feldman Type: BLOOD SPECIMENOrdering Facility: [facility] Address: [address] [place] [address] Performed By: #### 1 4338-8, 79260-5, 2777-, 32339-1 ####[facility]ATORYCLIA [id number] [address] STATES [facility] Sodium [Moles/Vol] 132 mmol/L Low 136-144 [facility] Comment on above: Order Comment: Speci men Type: BLOOD SPECIMENOrdering Facility: [facility] Address: [address] [place] [address] Performed By: #### 1 4338-8, 17370-6, 2777-, 71493-3 ####[facility]ATORYCLIA [id number] [address] [place] Urea nitrogen [Mass/Vol] 34 mg/dL High 01-28 [facility] Comment on above: Order Comment: Speci men Type: BLOOD SPECIMENOrdering Facility: [facility] Address: [address] [place] [address] Performed By: #### 1 4338-8, 15542-8, 2777-, 02277-8 ####[facility]ATORYCLIA [id number] [address] STATES [facility] CBC W Auto Differential pane l (Bld)on 07-28-2021 Basophils (Bld) [#/Vol] 0.04 10*3/uL Normal <0.11 [facility] Comment on above: Order Comment: Speci men Type: BLOOD SPECIMENOrdering Facility: [facility] Address: [address] [place] [address] Performed By: #### 5 7021-8 ####[facility]ATORYCLIA [id number] [address] [place] [facility] Basophils/100 WBC (Bld) 0.5 % Normal [facility] Comment on above: Order Comment: Speci men Type: BLOOD SPECIMENOrdering Facility: [facility] Address: [address] [place] [address] Performed By: #### 5 7021-8 ####[facility]ATORYCLIA [id number] [address] Differential cell count method Nom (Bld) Auto Normal [facility] Comment on above: Order Comment: Speci men Type: BLOOD SPECIMENOrdering Facility: [facility] Address: [address] [place] [address] Performed By: #### 5 7021-8 ####[facility]ATORYCLIA [id number] [address] Eosinophils (Bld) [#/Vol] 0.30 10*3/uL Normal <0.46 [facility] Comment on above: Order Comment: Speci men Type: BLOOD SPECIMENOrdering Facility: [facility] Address: [address] [place] [address] Performed By: #### 5 7021-8 ####[facility]ATORYCLIA [id number] [address] Eosinophils/100 WBC (Bld) 3.4 % Normal [facility] Comment on above: Order Comment: Speci men Type: BLOOD SPECIMENOrdering Facility: [facility] Address: [address] [place] [address] Performed By: #### 5 7021-8 ####[facility]ATORYCLIA [id number] [address] Erythrocyte distribution width (RBC) [Ratio] 16.9 % High 11.5-15.0 [facility] Comment on above: Order Comment: Speci men Type: BLOOD SPECIMENOrdering Facility: [facility] Address: [address] [place] [address] Performed By: #### 5 7021-8 ####[facility]ATORYCLIA [id number] [address] Hematocrit (Bld) [Volume fraction] 30.3 % Low 39.0-51.0 [facility] Comment on above: Order Comment: Speci men Type: BLOOD SPECIMENOrdering Facility: [facility] Address: [address] [place] [address] Performed By: #### 5 7021-8 ####[facility]ATORYCLIA [id number] [address] Hemoglobin (Bld) [Mass/Vol] 9.2 g/dL Low 13.0-17.0 [facility] Comment on above: Order Comment: Speci men Type: BLOOD SPECIMENOrdering Facility: [facility] Address: [address] [place] [address] Performed By: #### 5 7021-8 ####[facility]ATORYCLIA [id number] [address] IMMATURE GRAN % 0.6 % Normal [facility] Comment on above: Order Comment: Speci men Type: BLOOD SPECIMENOrdering Facility: [facility] Address: [address] [place] [address] Performed By: #### 5 7021-8 ####[facility]ATORYCLIA [id number] [address] IMMATURE GRAN ABS 0.05 k/uL Normal <0.10 [facility] Comment on above: Order Comment: Speci men Type: BLOOD SPECIMENOrdering Facility: [facility] Address: [address] [place] [address] Performed By: #### 5 7021-8 ####[facility]ATORYCLIA [id number] [address] [place] Lymphocytes (Bld) [#/Vol] 1.68 10*3/uL Normal 1.00-4.00 [facility] Comment on above: Order Comment: Speci men Type: BLOOD SPECIMENOrdering Facility: [facility] Address: [address] [place] [address] Performed By: #### 5 7021-8 ####[facility]ATORYCLIA [id number] [address] Lymphocytes/100 WBC (Bld) 19.2 % Normal [facility] Comment on above: Order Comment: Speci men Type: BLOOD SPECIMENOrdering Facility: [facility] Address: [address] [place] [address] Performed By: #### 5 7021-8 ####[facility]ATORYCLIA [id number] [address] MCH (RBC) [Entitic mass] 28.4 pg Normal 26.0-34.0 [facility] Comment on above: Order Comment: Speci men Type: BLOOD SPECIMENOrdering Facility: [facility] Address: [address] [place] [address] Performed By: #### 5 7021-8 ####[facility]ATORYCLIA [id number] [address] MCHC (RBC) [Mass/Vol] 30.4 g/dL Low 30.5-36.0 [facility] Comment on above: Order Comment: Speci men Type: BLOOD SPECIMENOrdering Facility: [facility] Address: [address] [place] [address] Performed By: #### 5 7021-8 ####[facility]ATORYCLIA [id number] [address] MCV (RBC) [Entitic vol] 93.5 fL Normal 80.0-100.0 [facility] Comment on above: Order Comment: Speci men Type: BLOOD SPECIMENOrdering Facility: [facility] Address: [address] [place] [address] Performed By: #### 5 7021-8 ####[facility]ATORYCLIA [id number] [address] Monocytes (Bld) [#/Vol] 0.58 10*3/uL Normal <0.87 [facility] Comment on above: Order Comment: Speci men Type: BLOOD SPECIMENOrdering Facility: [facility] Address: [address] [place] [address] Performed By: #### 5 7021-8 ####[facility]ORATORYCLIA [id number] [place] [address] [place] Monocytes/100 WBC (Bld) 6.6 % Normal [facility] Comment on above: Order Comment: Speci men Type: BLOOD SPECIMENOrdering Facility: [facility] Address: [address] [place] [address] Performed By: #### 5 7021-8 ####[facility]ORATORYCLIA [id number] [place] [address] [place] Neutrophils (Bld) [#/Vol] 6.11 10*3/uL Normal 1.45-7.50 [facility] Comment on above: Order Comment: Speci men Type: BLOOD SPECIMENOrdering Facility: [facility] Address: [address] [place] [address] Performed By: #### 5 7021-8 ####[facility]ATORYCLIA [id number] [address] [place] Neutrophils/100 WBC (Bld) 69.7 % Normal [facility] Comment on above: Order Comment: Speci men Type: BLOOD SPECIMENOrdering Facility: [facility] Address: [address] [place] [address] Performed By: #### 5 7021-8 ####[facility]ATORYCLIA [id number] [place] [address] [place] Nucleated RBC (Bld) [#/Vol] 10*3/uL Normal <0.01 [facility] Comment on above: Order Comment: Speci men Type: BLOOD SPECIMENOrdering Facility: [facility] Address: [address] [place] [address] Performed By: #### 5 7021-8 ####[facility]ATORYCLIA [id number] [address] [place] Nucleated RBC/100 WBC (Bld) [Ratio] 0.0 /100 WBC Normal [facility] Comment on above: Order Comment: Speci men Type: BLOOD SPECIMENOrdering Facility: [facility] Address: [address] [place], [place] [id number] Performed By: #### 5 7021-8 ####[facility]ORATORYCLIA [id number] [address] Platelet mean volume (Bld) [Entitic vol] 11.3 fL Normal 9.0-12.7 [facility] Comment on above: Order Comment: Speci men Type: BLOOD SPECIMENOrdering Facility: [facility] Address: [address] [place] [address] Performed By: #### 5 7021-8 ####[facility]ATORYCLIA [id number] [address] [place] Platelets (Bld) [#/Vol] 238 10*3/uL Normal 150-400 [facility] Comment on above: Order Comment: Speci men Type: BLOOD SPECIMENOrdering Facility: [facility] Address: [address] [place] [address] Performed By: #### 5 7021-8 ####[facility]ATORYCLIA [id number] [address] [place] RBC (Bld) [#/Vol] 3.24 10*6/uL Low 4.20-6.00 [facility] [facility] Comment on above: Order Comment: Speci men Type: BLOOD SPECIMENOrdering Facility: [facility] Address: [address] [place] [address] Performed By: #### 5 7021-8 ####[facility]ATORYCLIA [id number] [address] [place] WBC (Bld) [#/Vol] 8.76 10*3/uL Normal 3.70-11.00 [facility] Comment on above: Order Comment: Speci men Type: BLOOD SPECIMENOrdering Facility: [facility] Address: [address] [place] [address] Performed By: #### 5 7021-8 ####[facility]ATORYCLIA [id number] [address] MRI BRAIN WO/W IVCONon 07-28 MRI BRAIN WO/W IVCON Normal [facility] Magnesium SerPl-mCncon 07-28 Magnesium [Mass/Vol] 2.5 mg/dL High 1.7-2.3 [facility] Comment on above: Order Comment: Speci men Type: BLOOD SPECIMENOrdering Facility: [facility] Address: [address] [place] [address] Performed By: #### 1 4338-8, 18218-6, 2777-1, 55060-8 ####[facility]ATORYCLIA [id number] [address] [place] NURSING PROGon 07-28-2021 NURSING PROG Normal [facility] NURSING PROG Normal [facility] Phosphate SerPl-mCncon 07-28 Phosphate [Mass/Vol] 2.8 mg/dL Normal 2.7-4.8 [facility] Comment on above: Order Comment: Speci men Type: BLOOD SPECIMENOrdering Facility: [facility] Address: [address] [place] [address] Performed By: #### 1 4338-8, 88490-4, 277, 44829-4 ####[facility]ATORYCLIA [id number] [address] [place] Prealbumin [Mass/Vol]on 07-06 Prealbumin Nephelometry [Mass/Vol] 25 mg/dL Normal 17-36 [facility] Comment on above: Order Comment: Speci men Type: BLOOD SPECIMENOrdering Facility: [facility] Address: [address] [place] [address] Performed By: #### 1 4338-8, 03979-2, 2777-, 83816-0 ####[facility]ATORYCLIA [id number] [address] [place] aPTT PPPon 07-28-2021 aPTT Coag (PPP) [Time] 53.0 s High 23.0-32.4 [facility] Comment on above: Order Comment: Speci men Type: BLOOD SPECIMENOrdering Facility: [facility] Address: [address] [place] [address] Performed By: #### 1 4979-9 ####[facility]ATORYCLIA [id number] [address] aPTT Coag (PPP) [Time] 57.2 s High 23.0-32.4 [facility] Comment on above: Order Comment: Speci men Type: BLOOD SPECIMENOrdering Facility: [facility] Address: [address] [place] [address] Performed By: #### 1 4979-9 ####[facility]ATORYCLIA [id number] [address] Bacteria CSF Culton 07-28-19 22 Bacteria identified Cx Nom (CSF) CULTURE, CSF: No growth 14 days GRAM STAIN: No organisms seen Rare Polymorphonuclear leukocytes Rare Red Blood Cells Gram stain performed on cytospun specimen. Normal [facility] Comment on above: Performed By: #### 6 06-4 ####[facility]ATORYCLIA [id number] [address] Bacteria Spec Resp Culton Bacteria identified Respiratory culture Nom (Unsp spec) CULTURE, RESPIRATORY: Rare Normal respiratory chris present GRAM STAIN: No organisms seen Rare Polymorphonuclear leukocytes Rare Epithelial cells Normal [facility] Comment on above: Performed By: #### 3 2355-0 ####[facility]ATORYCLIA [id number] [address] CASE MANAGEMon 07-27-2021 CASE MANAGEM Normal [facility] CBC W Auto Differential pane l (Bld)on 07-27-2021 Basophils (Bld) [#/Vol] 0.04 10*3/uL Normal <0.11 [facility] Comment on above: Order Comment: Speci men Type: BLOOD SPECIMENOrdering Facility: [facility] Address: [address] [place] [address] Performed By: #### 5 7021-8 ####[facility]ATORYCLIA [id number] [address] [place] Basophils/100 WBC (Bld) 0.4 % Normal [facility] Comment on above: Order Comment: Speci men Type: BLOOD SPECIMENOrdering Facility: [facility] Address: [address] [place] [address] Performed By: #### 5 7021-8 ####[facility]ATORYCLIA [id number] [address] [place] Differential cell count method Nom (Bld) Auto Normal [facility] Comment on above: Order Comment: Speci men Type: BLOOD SPECIMENOrdering Facility: [facility] Address: [address] [place] [address] Performed By: #### 5 7021-8 ####[facility]ATORYCLIA [id number] [place] [address] [place] Eosinophils (Bld) [#/Vol] 0.50 10*3/uL High <0.46 [facility] Comment on above: Order Comment: Speci men Type: BLOOD SPECIMENOrdering Facility: [facility] Address: [address] [place] [address] Performed By: #### 5 7021-8 ####[facility]ATORYCLIA [id number] [address] [place] Eosinophils/100 WBC (Bld) 5.2 % Normal [facility] Comment on above: Order Comment: Speci men Type: BLOOD SPECIMENOrdering Facility: [facility] Address: [address] [place] [address] Performed By: #### 5 7021-8 ####[facility]ATORYCLIA [id number] [address] [place] Erythrocyte distribution width (RBC) [Ratio] 16.8 % High 11.5-15.0 [facility] Comment on above: Order Comment: Speci men Type: BLOOD SPECIMENOrdering Facility: [facility] Address: [address] [place] [address] Performed By: #### 5 7021-8 ####[facility]ATORYCLIA [id number] [address] Hematocrit (Bld) [Volume fraction] 29.8 % Low 39.0-51.0 [facility] Comment on above: Order Comment: Speci men Type: BLOOD SPECIMENOrdering Facility: [facility] Address: [address] [place] [address] Performed By: #### 5 7021-8 ####[facility]ATORYCLIA [id number] [address] Hemoglobin (Bld) [Mass/Vol] 9.0 g/dL Low 13.0-17.0 [facility] Comment on above: Order Comment: Speci men Type: BLOOD SPECIMENOrdering Facility: [facility] Address: [address] [place] [address] Performed By: #### 5 7021-8 ####[facility]ATORYCLIA [id number] [address] IMMATURE GRAN % 0.6 % Normal [facility] Comment on above: Order Comment: Speci men Type: BLOOD SPECIMENOrdering Facility: [facility] Address: [address] [place] [address] Performed By: #### 5 7021-8 ####[facility]ATORYCLIA [id number] [address] IMMATURE GRAN ABS 0.06 k/uL Normal <0.10 [facility] Comment on above: Order Comment: Speci men Type: BLOOD SPECIMENOrdering Facility: [facility] Address: [address] [place] [address] Performed By: #### 5 7021-8 ####[facility]ATORYCLIA [id number] [address] Lymphocytes (Bld) [#/Vol] 1.73 10*3/uL Normal 1.00-4.00 [facility] Comment on above: Order Comment: Speci men Type: BLOOD SPECIMENOrdering Facility: [facility] Address: [address] [place] [address] Performed By: #### 5 7021-8 ####[facility]ATORYCLIA [id number] [address] Lymphocytes/100 WBC (Bld) 17.9 % Normal [facility] Comment on above: Order Comment: Speci men Type: BLOOD SPECIMENOrdering Facility: [facility] Address: [address] [place] [address] Performed By: #### 5 7021-8 ####[facility]ORATORYCLIA [id number] [address] MCH (RBC) [Entitic mass] 28.1 pg Normal 26.0-34.0 [facility] Comment on above: Order Comment: Speci men Type: BLOOD SPECIMENOrdering Facility: [facility] Address: [address] [place] [address] Performed By: #### 5 7021-8 ####[facility]ATORYCLIA [id number] [address] STATES OF [facility] MCHC (RBC) [Mass/Vol] 30.2 g/dL Low 30.5-36.0 [facility] Comment on above: Order Comment: Speci men Type: BLOOD SPECIMENOrdering Facility: [facility] Address: [address] [place] [address] Performed By: #### 5 7021-8 ####[facility]ATORYCLIA [id number] [address] MCV (RBC) [Entitic vol] 93.1 fL Normal 80.0-100.0 [facility] Comment on above: Order Comment: Speci men Type: BLOOD SPECIMENOrdering Facility: [facility] Address: [address] [place] [address] Performed By: #### 5 7021-8 ####[facility]ATORYCLIA [id number] [address] Monocytes (Bld) [#/Vol] 0.59 10*3/uL Normal <0.87 [facility] Comment on above: Order Comment: Speci men Type: BLOOD SPECIMENOrdering Facility: [facility] Address: [address] [place] [address] Performed By: #### 5 7021-8 ####[facility]ATORYCLIA [id number] [address] [place] Monocytes/100 WBC (Bld) 6.1 % Normal [facility] Comment on above: Order Comment: Speci men Type: BLOOD SPECIMENOrdering Facility: [facility] Address: [address] [place] [address] Performed By: #### 5 7021-8 ####[facility]ATORYCLIA [id number] [address] [place] Neutrophils (Bld) [#/Vol] 6.75 10*3/uL Normal 1.45-7.50 [facility] Comment on above: Order Comment: Speci men Type: BLOOD SPECIMENOrdering Facility: [facility] Address: [address] [place] [address] Performed By: #### 5 7021-8 ####[facility]ATORYCLIA [id number] [address] [place] Neutrophils/100 WBC (Bld) 69.8 % Normal [facility] Comment on above: Order Comment: Speci men Type: BLOOD SPECIMENOrdering Facility: [facility] Address: [address] [place] [address] Performed By: #### 5 7021-8 ####[facility]ATORYCLIA [id number] [place] [address] [place] Nucleated RBC (Bld) [#/Vol] 10*3/uL Normal <0.01 [facility] Comment on above: Order Comment: Speci men Type: BLOOD SPECIMENOrdering Facility: [facility] Address: [address] [place] [address] Performed By: #### 5 7021-8 ####[facility]ATORYCLIA [id number] [address] [place] Nucleated RBC/100 WBC (Bld) [Ratio] 0.0 /100 WBC Normal [facility] Comment on above: Order Comment: Speci men Type: BLOOD SPECIMENOrdering Facility: [facility] Address: [address] [place] [address] Performed By: #### 5 7021-8 ####[facility]ATORYCLIA [id number] [address] [facility] Platelet mean volume (Bld) [Entitic vol] 11.3 fL Normal 9.0-12.7 [facility] Comment on above: Order Comment: Speci men Type: BLOOD SPECIMENOrdering Facility: [facility] Address: [address] [place] [address] Performed By: #### 5 7021-8 ####[facility]ATORYCLIA [id number] [address] [place] Platelets (Bld) [#/Vol] 227 10*3/uL Normal 150-400 [facility] Comment on above: Order Comment: Speci men Type: BLOOD SPECIMENOrdering Facility: [facility] Address: [address] [place] [address] Performed By: #### 5 7021-8 ####[facility]ATORYCLIA [id number] [address] [place] RBC (Bld) [#/Vol] 3.20 10*6/uL Low 4.20-6.00 [facility] Comment on above: Order Comment: Speci men Type: BLOOD SPECIMENOrdering Facility: [facility] Address: [address] [place] [address] Performed By: #### 5 7021-8 ####[facility]ATORYCLIA [id number] [address] [place] WBC (Bld) [#/Vol] 9.67 10*3/uL Normal 3.70-11.00 [facility] Comment on above: Order Comment: Speci men Type: BLOOD SPECIMENOrdering Facility: [facility] Address: [address] [place] [address] Performed By: #### 5 7021-8 ####[facility]ATORYCLIA [id number] [address] [facility] CONSULT PROGon 07-27-2021 CONSULT PROG Normal [facility] CSF MANUAL DIFFon 07-27-2021 DIF TTL, CSF 100 cells counted Normal [facility] Comment on above: Order Comment: Speci men Type: CEREBROSPINAL FLUIDOrdering Facility: [facility] Address: [address] [place] [address] Performed By: #### L [id number], 09489-0, [id number] ####[facility]ATORYCLIA [id number] [address] [place] LYMPH%, CSF 75 % Normal 50-90 [facility] Comment on above: Order Comment: Speci men Type: CEREBROSPINAL FLUIDOrdering Facility: [facility] Address: [address] [place] [address] Performed By: #### L [id number], 71102-1, [id number] ####[facility]ORATORYCLIA [id number] [place] [address] [place] MONO%, CSF 22 % Normal 10-50 [facility] Comment on above: Order Comment: Speci men Type: CEREBROSPINAL FLUIDOrdering Facility: [facility] Address: [address] [place] [address] Performed By: #### L [id number], 36768-0, [id number] ####[facility]ATORYCLIA [id number] [address] [place] NEUT%, CSF 2 % Normal 0-3 [facility] Comment on above: Order Comment: Speci men Type: CEREBROSPINAL FLUIDOrdering Facility: [facility] Address: [address] [place] [address] Performed By: #### L [id number], 29133-9, [id number] ####[facility]ATORYCLIA [id number] [place] [address] [place] OTHER CL%, CSF 1 % Normal [facility] Comment on above: Order Comment: Speci men Type: CEREBROSPINAL FLUIDOrdering Facility: [facility] Address: [address] [place] [address] Result Comment: Path ologist review of microscopy results to follow Performed By: #### L [id number], 39560-4, [id number] ####[facility]ATORYCLIA [id number] [address] [place] CSF PATHOLOGIST INTERP (LAB REFLEX ORDER-NO BILL)on 07-27-2021 CSF STAFF REVIEW Negative Normal [facility] Comment on above: Order Comment: Speci men Type: CEREBROSPINAL FLUIDOrdering Facility: [facility] Address: [address] [place] [address] Performed By: #### L ED4502, 35865-1, [id number] ####[facility]ATORYCLIA [id number] [address] Pathologist name Reviewed by Amador Stevens MD Normal [facility] Comment on above: Order Comment: Speci men Type: CEREBROSPINAL FLUIDOrdering Facility: [facility] Address: [address] [place] [address] Performed By: #### L [id number], 27918-7, [id number] ####[facility]ATORYCLIA [id number] [address] Cell count panel (CSF)on Clarity (CSF) Clear Normal Clear [facility] Comment on above: Order Comment: Speci men Type: CEREBROSPINAL FLUIDOrdering Facility: [facility] Address: [address] [place] [address] Performed By: #### L [id number], 94595-0, [id number] ####[facility]ATORYCLIA [id number] [address] [place] Clarity (Unsp spec) Not Indicated Normal Clear [facility] Comment on above: Order Comment: Speci men Type: CEREBROSPINAL FLUIDOrdering Facility: [facility] Address: [address] [place] [address] Performed By: #### L WS8839, 65870-6, [id number] ####[facility]ATORYCLIA [id number] [address] Color (CSF) Colorless Normal Colorless [facility] Comment on above: Order Comment: Speci men Type: CEREBROSPINAL FLUIDOrdering Facility: [facility] Address: [address] [place] [address] Performed By: #### L SL1063, 23202-9, [id number] ####[facility]ATORYCLIA [id number] [address] Color (Spun CSF) Not Indicated Normal Colorless [facility] Comment on above: Order Comment: Speci men Type: CEREBROSPINAL FLUIDOrdering Facility: [facility] Address: [address] [place] [address] Performed By: #### L ZA2684, 88500-7, [id number] ####[facility]ATORYCLIA [id number] [address] CSF [employer] Normal [facility] Comment on above: Order Comment: Speci men Type: CEREBROSPINAL FLUIDOrdering Facility: [facility] Address: [address] [place] [address] Performed By: #### L AR6213, 67743-5, [id number] ####[facility]ATORYCLIA [id number] [address] [place] RBC Manual cnt (CSF) [#/Vol] 39 cells/uL High 0-5 [facility] Comment on above: Order Comment: Speci men Type: CEREBROSPINAL FLUIDOrdering Facility: [facility] Address: [address] [place] [address] Performed By: #### L TY0938, 26100-6, [id number] ####[facility]ATORYCLIA [id number] [address] WBC Manual cnt (CSF) [#/Vol] 14 cells/uL High 0-5 [facility] Comment on above: Order Comment: Speci men Type: CEREBROSPINAL FLUIDOrdering Facility: [facility] Address: [address] [place] [address] Performed By: #### L [id number], 36621-8, [id number] ####[facility]ATORYCLIA [id number] [address] [place] Glucose CSF-[facility] 2 Glucose (CSF) [Mass/Vol] 64 mg/dL Normal 40-70 [facility] Comment on above: Order Comment: Speci men Type: CEREBROSPINAL FLUIDOrdering Facility: [facility] Address: [address] [place] [address] Result Comment: Lumb ar CSF glucose values of healthy patients are approximately 60% of the plasma values and must always be compared with a concurrently measured plasma value for adequate clinical interpretation.References: 1. Glucose HK (GLUC3) [package insert V 12.0 Haitian]. [employer], [place], [place]. September 2015. 2. Michelle Moore, Loki, H. (2015). Chapter 7: Glucose and Lactate. Marianela Alcocer al.(eds.), Cerebrospinal Fluid in Clinical Neurology. [employer]: [employer] Performed By: #### 2 342-4, 2880-3 ####[facility]ATORYCLIA [id number] [address] [place] NUTRITIONon 07-27-2021 NUTRITION Normal [facility] Prot CSF-ncon 07-27-2021 Protein (CSF) [Mass/Vol] 58 mg/dL High 15-45 [facility] Comment on above: Order Comment: Speci men Type: CEREBROSPINAL FLUIDOrdering Facility: [facility] Address: [address] [place] [address] Performed By: #### 2 342-4, 2880-3 ####[facility]ATORYCLIA [id number] [address] [place] aPTT PPPon 07-27-2021 aPTT Coag (PPP) [Time] 68.4 s High 23.0-32.4 [facility] Comment on above: Order Comment: Speci men Type: BLOOD SPECIMENOrdering Facility: [facility] Address: [address] [place] [address] Performed By: #### 1 4979-9 ####[facility]ATORYCLIA [id number] [address] [place] [facility] aPTT Coag (PPP) [Time] 51.3 s High 23.0-32.4 [facility] Comment on above: Order Comment: Speci men Type: BLOOD SPECIMENOrdering Facility: [facility] Address: [address] [place] [address] Performed By: #### 1 4979-9 ####[facility]ATORYCLIA [id number] [address] ALLIED HEALTHon 07-26-2021 ALLIED HEALTH HNO ID: [id number] Author: Stephanie Maldonado, supervisor aircraft cleaning Service: Radiology Author Type: Animation Director Type: Allied Health Filed: 07/26/2021 4:10 PM Note Text: Spoke with nurse. Pt getting new EVD today. Try tomorrow. Normal [facility] Bacteria CSF Culton 07-27-19 22 Bacteria identified Cx Nom (CSF) Abnormal [facility] Comment on above: Performed By: #### 6 06-4 ####[facility]ATORYCLIA [id number] [address] [place] Basic metabolic 2000 panelon 07-26-2021 Anion gap [Moles/Vol] 6 mmol/L Low 9-18 [facility] Comment on above: Order Comment: Speci men Type: BLOOD SPECIMENOrdering Facility: [facility] Address: [address] [place] [address] Performed By: #### 2 4321-2 ####[facility]ATORYCLIA [id number] [address] [place] Calcium [Mass/Vol] 9.2 mg/dL Normal 8.5-10.2 [facility] Comment on above: Order Comment: Speci men Type: BLOOD SPECIMENOrdering Facility: [facility] Address: [address] [place] [address] Performed By: #### 2 4321-2 ####[facility]ORATORYCLIA [id number] [place] [address] [place] Chloride [Moles/Vol] 99 mmol/L Normal 97-105 [facility] Comment on above: Order Comment: Speci men Type: BLOOD SPECIMENOrdering Facility: [facility] Address: [address] [place] [address] Performed By: #### 2 4321-2 ####[facility]ATORYCLIA [id number] [place] [address] [place] CO2 [Moles/Vol] 32 mmol/L High 22-30 [facility] Comment on above: Order Comment: Speci men Type: BLOOD SPECIMENOrdering Facility: [facility] Address: [address] [place] [address] Performed By: #### 2 4321-2 ####[facility]ATORYCLIA [id number] [address] [place] Creatinine [Mass/Vol] 0.74 mg/dL Normal 0.73-1.22 [facility] Comment on above: Order Comment: Speci men Type: BLOOD SPECIMENOrdering Facility: [facility] Address: [address] [place] [address] Performed By: #### 2 4321-2 ####[facility]ATORYCLIA [id number] [address] [place] ESTIMATED GLOMERULAR FILTRATION RATE 98 mL/min/1.73m??? Normal >=60 [facility] Comment on above: Order Comment: Speci men Type: BLOOD SPECIMENOrdering Facility: [facility] Address: [address] [place] [address] Result Comment: Luzmaria mated Glomerular Filtration Rate [...] actual GFR. Performed By: #### 2 4321-2 ####[facility]ORATORYCLIA [id number] [place] [address] [place] Glucose [Mass/Vol] 126 mg/dL High 74-99 [facility] Comment on above: Order Comment: Shira feldman Type: BLOOD SPECIMENOrdering Facility: [facility] Address: [address] [id number] Result Comment: The [place] [employer] (ADA) provides guidance for cutoff [...] Standards of Medical Care in Diabetes 2016, [place] [employer]. Diabetes Care. 2016.39(Suppl 1). Performed By: #### 2 4321-2 ####[facility]ATORYCLIA [id number] [place] [address] [place] Potassium [Moles/Vol] 4.2 mmol/L Normal 3.7-5.1 [facility] Comment on above: Order Comment: Shira feldman Type: BLOOD SPECIMENOrdering Facility: [facility] Address: [address] [place] [address] Performed By: #### 2 4321-2 ####[facility]ATORYCLIA [id number] [place] [address] [place] Sodium [Moles/Vol] 137 mmol/L Normal 136-144 [facility] Comment on above: Order Comment: Shira feldman Type: BLOOD SPECIMENOrdering Facility: [facility] Address: [address] [place] [address] Performed By: #### 2 4321-2 ####[facility]ATORYCLIA [id number] [address] [place] [facility] Urea nitrogen [Mass/Vol] 36 mg/dL High 9-24 [facility] Comment on above: Order Comment: Speci men Type: BLOOD SPECIMENOrdering Facility: [facility] Address: [address] [place] [address] Performed By: #### 2 4321-2 ####[facility]ATORYCLIA [id number] [place] [address] [place] CBC W Auto Differential pane l (Bld)on 07-26-2021 Basophils (Bld) [#/Vol] 0.04 10*3/uL Normal <0.11 [facility] Comment on above: Order Comment: Speci men Type: BLOOD SPECIMENOrdering Facility: [facility] Address: [address] [place] [address] Performed By: #### 5 7021-8 ####[facility]ATORYCLIA [id number] [address] [place] Basophils/100 WBC (Bld) 0.4 % Normal [facility] Comment on above: Order Comment: Speci men Type: BLOOD SPECIMENOrdering Facility: [facility] Address: [address] [place] [address] Performed By: #### 5 7021-8 ####[facility]ORATORYCLIA [id number] [address] [place] [facility] Differential cell count method Nom (Bld) Auto Normal [facility] Comment on above: Order Comment: Speci men Type: BLOOD SPECIMENOrdering Facility: [facility] Address: [address] [place] [address] Performed By: #### 5 7021-8 ####[facility]ORATORYCLIA [id number] [place] [address] [place] Eosinophils (Bld) [#/Vol] 0.63 10*3/uL High <0.46 [facility] Comment on above: Order Comment: Speci men Type: BLOOD SPECIMENOrdering Facility: [facility] Address: [address] [place] [address] Performed By: #### 5 7021-8 ####[facility]ORATORYCLIA [id number] [address] [place] Eosinophils/100 WBC (Bld) 5.8 % Normal [facility] Comment on above: Order Comment: Speci men Type: BLOOD SPECIMENOrdering Facility: [facility] Address: [address] [place] [address] Performed By: #### 5 7021-8 ####[facility]ORATORYCLIA [id number] [address] [place] Erythrocyte distribution width (RBC) [Ratio] 16.8 % High 11.5-15.0 [facility] Comment on above: Order Comment: Speci men Type: BLOOD SPECIMENOrdering Facility: [facility] Address: [address] [place] [address] Performed By: #### 5 7021-8 ####[facility]ATORYCLIA [id number] [address] [place] Hematocrit (Bld) [Volume fraction] 31.2 % Low 39.0-51.0 [facility] Comment on above: Order Comment: Speci men Type: BLOOD SPECIMENOrdering Facility: [facility] Address: [address] [place] [address] Performed By: #### 5 7021-8 ####[facility]ATORYCLIA [id number] [address] [place] Hemoglobin (Bld) [Mass/Vol] 9.1 g/dL Low 13.0-17.0 [facility] Comment on above: Order Comment: Speci men Type: BLOOD SPECIMENOrdering Facility: [facility] Address: [address] [place] [address] Performed By: #### 5 7021-8 ####[facility]ATORYCLIA [id number] [address] IMMATURE GRAN % 0.6 % Normal [facility] Comment on above: Order Comment: Speci men Type: BLOOD SPECIMENOrdering Facility: [facility] Address: [address] [place] [address] Performed By: #### 5 7021-8 ####[facility]ATORYCLIA [id number] [address] IMMATURE GRAN ABS 0.07 k/uL Normal <0.10 [facility] Comment on above: Order Comment: Speci men Type: BLOOD SPECIMENOrdering Facility: [facility] Address: [address] [place] [address] Performed By: #### 5 7021-8 ####[facility]ATORYCLIA [id number] [address] STATES [facility] Lymphocytes (Bld) [#/Vol] 2.16 10*3/uL Normal 1.00-4.00 [facility] Comment on above: Order Comment: Speci men Type: BLOOD SPECIMENOrdering Facility: [facility] Address: [address] [place] [address] Performed By: #### 5 7021-8 ####[facility]ATORYCLIA [id number] [address] Lymphocytes/100 WBC (Bld) 20.0 % Normal [facility] Comment on above: Order Comment: Speci men Type: BLOOD SPECIMENOrdering Facility: [facility] Address: [address] [place] [address] Performed By: #### 5 7021-8 ####[facility]ORATORYCLIA [id number] [address] [place] MCH (RBC) [Entitic mass] 27.7 pg Normal 26.0-34.0 [facility] Comment on above: Order Comment: Speci men Type: BLOOD SPECIMENOrdering Facility: [facility] Address: [address] [place] [address] Performed By: #### 5 7021-8 ####[facility]ATORYCLIA [id number] [address] MCHC (RBC) [Mass/Vol] 29.2 g/dL Low 30.5-36.0 [facility] Comment on above: Order Comment: Speci men Type: BLOOD SPECIMENOrdering Facility: [facility] Address: [address] [place] [address] Performed By: #### 5 7021-8 ####[facility]ATORYCLIA [id number] [address] OF [facility] MCV (RBC) [Entitic vol] 95.1 fL Normal 80.0-100.0 [facility] Comment on above: Order Comment: Speci men Type: BLOOD SPECIMENOrdering Facility: [facility] Address: [address] [place] [address] Performed By: #### 5 7021-8 ####[facility]ATORYCLIA [id number] [address] STATES OF [facility] Monocytes (Bld) [#/Vol] 0.63 10*3/uL Normal <0.87 [facility] Comment on above: Order Comment: Speci men Type: BLOOD SPECIMENOrdering Facility: [facility] Address: [address] [place] [address] Performed By: #### 5 7021-8 ####[facility]ATORYCLIA [id number] [address] Monocytes/100 WBC (Bld) 5.8 % Normal [facility] Comment on above: Order Comment: Speci men Type: BLOOD SPECIMENOrdering Facility: [facility] Address: [address] [place] [address] Performed By: #### 5 7021-8 ####[facility]ATORYCLIA [id number] [address] [place] Neutrophils (Bld) [#/Vol] 7.25 10*3/uL Normal 1.45-7.50 [facility] Comment on above: Order Comment: Speci men Type: BLOOD SPECIMENOrdering Facility: [facility] Address: [address] [place] [address] Performed By: #### 5 7021-8 ####[facility]ATORYCLIA [id number] [address] Neutrophils/100 WBC (Bld) 67.4 % Normal [facility] Comment on above: Order Comment: Speci men Type: BLOOD SPECIMENOrdering Facility: [facility] Address: [address] [place] [address] Performed By: #### 5 7021-8 ####[facility]ATORYCLIA [id number] [address] Nucleated RBC (Bld) [#/Vol] 10*3/uL Normal <0.01 [facility] Comment on above: Order Comment: Speci men Type: BLOOD SPECIMENOrdering Facility: [facility] Address: [address] [place] [address] Performed By: #### 5 7021-8 ####[facility]ATORYCLIA [id number] [address] Nucleated RBC/100 WBC (Bld) [Ratio] 0.0 /100 WBC Normal [facility] Comment on above: Order Comment: Speci men Type: BLOOD SPECIMENOrdering Facility: [facility] Address: [address] [place] [address] Performed By: #### 5 7021-8 ####[facility]ATORYCLIA [id number] [address] Platelet mean volume (Bld) [Entitic vol] 11.2 fL Normal 9.0-12.7 [facility] Comment on above: Order Comment: Speci men Type: BLOOD SPECIMENOrdering Facility: [facility] Address: [address] [place] [address] Performed By: #### 5 7021-8 ####[facility]ATORYCLIA [id number] [address] [place] Platelets (Bld) [#/Vol] 245 10*3/uL Normal 150-400 [facility] Comment on above: Order Comment: Speci men Type: BLOOD SPECIMENOrdering Facility: [facility] Address: [address] [place] [address] Performed By: #### 5 7021-8 ####[facility]ATORYCLIA [id number] [place] [address] [place] RBC (Bld) [#/Vol] 3.28 10*6/uL Low 4.20-6.00 [facility] Comment on above: Order Comment: Speci men Type: BLOOD SPECIMENOrdering Facility: [facility] Address: [address] [place] [address] Performed By: #### 5 7021-8 ####[facility]ATORYCLIA [id number] [place] [address] [place] WBC (Bld) [#/Vol] 10.78 10*3/uL Normal 3.70-11.00 [facility] Comment on above: Order Comment: Speci men Type: BLOOD SPECIMENOrdering Facility: [facility] Address: [address] [place] [address] Performed By: #### 5 7021-8 ####[facility]ORATORYCLIA [id number] [address] [place] CSF MANUAL DIFFon 07-26-2021 DIF TTL, CSF 100 cells counted Normal [facility] Comment on above: Order Comment: Speci men Type: CEREBROSPINAL FLUIDOrdering Facility: [facility] Address: [address] [place] [address] Performed By: #### 3 4563-7, [id number], [id number] ####[facility]ATORYCLIA [id number] [address] [place] LYMPH%, CSF 26 % Low 50-90 [facility] Comment on above: Order Comment: Speci men Type: CEREBROSPINAL FLUIDOrdering Facility: [facility] Address: [address] [address] Performed By: #### 3 4563-7, [id number], [id number] ####[facility]ATORYCLIA [id number] [place] [address] [place] MACRO%, CSF 10 % High <1 [facility] Comment on above: Order Comment: Speci men Type: CEREBROSPINAL FLUIDOrdering Facility: [facility] Address: [address] [place] [address] Performed By: #### 3 4563-7, [id number], [id number] ####[facility]ATORYCLIA [id number] [place] [address] [place] MONO%, CSF 20 % Normal 10-50 [facility] Comment on above: Order Comment: Speci men Type: CEREBROSPINAL FLUIDOrdering Facility: [facility] Address: [address] [place] [address] Performed By: #### 3 4563-7, [id number], [id number] ####[facility]ATORYCLIA [id number] [place] [address] [place] NEUT%, CSF 40 % High 0-3 [facility] Comment on above: Order Comment: Speci men Type: CEREBROSPINAL FLUIDOrdering Facility: [facility] Address: [address] [place] [address] Performed By: #### 3 4563-7, [id number], [id number] ####[facility]ATORYCLIA [id number] [place] [address] [place] OTHER CL%, CSF 2 % Normal [facility] Comment on above: Order Comment: Speci men Type: CEREBROSPINAL FLUIDOrdering Facility: [facility] Address: [address] [place] [address] Result Comment: Path review to follow. Performed By: #### 3 4563-7, [id number], [id number] ####[facility]ATORYCLIA [id number] [place] [address] [place] REAC LYMPH %, CSF 2 % Normal [facility] Comment on above: Order Comment: Speci men Type: CEREBROSPINAL FLUIDOrdering Facility: [facility] Address: [address] [place] [address] Performed By: #### 3 4563-7, [id number], [id number] ####[facility]ATORYCLIA [id number] [address] [place] CSF PATHOLOGIST INTERP (LAB REFLEX ORDER-NO BILL)on 07-26-2021 CSF STAFF REVIEW Negative for maligna nt cells. Rare bacteria present, cocci in pairs and chains. Correlation with CSF cultures is recommended. Normal [facility] Comment on above: Order Comment: Speci men Type: CEREBROSPINAL FLUIDOrdering Facility: [facility] Address: [address] [place] [address] Performed By: #### 3 4563-7, [id number], [id number] ####[facility]ATORYCLIA [id number] [address] Pathologist name Reviewed by Amador Stevens MD [facility] Comment on above: Order Comment: Speci men Type: CEREBROSPINAL FLUIDOrdering Facility: [facility] Address: [address] [place] [address] Performed By: #### 3 4563-7, [id number], [id number] ####[facility]ATORYCLIA [id number] [address] [place] Cell count panel (CSF)on Clarity (CSF) Slightly Cloudy Abnormal Clear [facility] Comment on above: Order Comment: Speci men Type: CEREBROSPINAL FLUIDOrdering Facility: [facility] Address: [address] [place] [address] Performed By: #### 3 4563-7, [id number], [id number] ####[facility]ATORYCLIA [id number] [address] [place] Clarity (Unsp spec) Clear Normal Clear [facility] Comment on above: Order Comment: Speci men Type: CEREBROSPINAL FLUIDOrdering Facility: [facility] Address: [address] [address] Performed By: #### 3 4563-7, [id number], [id number] ####[facility]ATORYCLIA [id number] [address] Color (CSF) Colorless Normal Colorless [facility] Comment on above: Order Comment: Speci men Type: CEREBROSPINAL FLUIDOrdering Facility: [facility] Address: [address] [place] [address] Performed By: #### 3 4563-7, [id number], [id number] ####[facility]ATORYCLIA [id number] [address] [facility] Color (Spun CSF) Not Indicated Normal Colorless [facility] Comment on above: Order Comment: Speci men Type: CEREBROSPINAL FLUIDOrdering Facility: [facility] Address: [address] [place] [address] Performed By: #### 3 4563-7, [id number], [id number] ####[facility]ORATORYCLIA [id number] [address] [facility] CSF TUBE NUMBER [employer] Normal [facility] Comment on above: Order Comment: Speci men Type: CEREBROSPINAL FLUIDOrdering Facility: [facility] Address: [address] [place] [address] Performed By: #### 3 4563-7, [id number], [id number] ####[facility]ATORYCLIA [id number] [address] [place] RBC Manual cnt (CSF) [#/Vol] 1 cells/uL Normal 0-[address] [place] [address] Comment on above: Order Comment: Speci men Type: CEREBROSPINAL FLUIDOrdering Facility: [facility] Address: [facility] [place] [address] Performed By: #### 3 4563-7, [id number], [id number] ####[facility]ORYCLIA [id number] [address] [place] WBC Manual cnt (CSF) [#/Vol] 50 cells/uL High 0-5 [facility] Comment on above: Order Comment: Speci men Type: CEREBROSPINAL FLUIDOrdering Facility: [facility] Address: [address] [place] [address] Performed By: #### 3 4563-7, [id number], [id number] ####[facility]ATORYCLIA [id number] [place] [address] [place] Glucose CSF-mCncon 2 Glucose (CSF) [Mass/Vol] 64 mg/dL Normal 40-70 [facility] Comment on above: Order Comment: Speci men Type: CEREBROSPINAL FLUIDOrdering Facility: [facility] Address: [address] [place] [address] Result Comment: Lumb ar CSF glucose values of healthy patients are approximately 60% of the plasma values and must always be compared with a concurrently measured plasma value for adequate clinical interpretation.References: 1. Glucose HK (GLUC3) [package insert V 12.0 Haitian]. [employer], [place], [place]. September 2015. 2. Michelle Moore, Loki HGarfield (2015). Chapter 7: Glucose and Lactate. F. Irina rose al.(eds.), Cerebrospinal Fluid in Clinical Neurology. [employer]s: [employer]. Performed By: #### 2 880-3, 2342-4 ####[facility]ORATORYCLIA [id number] [place] [address] [place] Magnesium SerPl-ncon 07-26 Magnesium [Mass/Vol] 2.3 mg/dL Normal 1.7-2.3 [facility] Comment on above: Order Comment: Speci men Type: BLOOD SPECIMENOrdering Facility: [facility] Address: [address] [place] [address] Performed By: #### 1 9123-9, 2777-1, 3016-3 ####[facility]ATORYCLIA [id number] [place] [address] [place] NURSING PROGon 07-26-2021 NURSING PROG Normal [facility] Phosphate SerPl-ncon 07-26 Phosphate [Mass/Vol] 2.6 mg/dL Low 2.7-4.8 [facility] Comment on above: Order Comment: Speci men Type: BLOOD SPECIMENOrdering Facility: [facility] Address: [address] [place] [address] Performed By: #### 1 9123-9, 2777-1, 3016-3 ####[facility]ATORYCLIA [id number] [address] [place] Prot CSF-mCncon 07-26-2021 Protein (CSF) [Mass/Vol] 64 mg/dL High 15-45 [facility] Comment on above: Order Comment: Speci men Type: CEREBROSPINAL FLUIDOrdering Facility: [facility] Address: [address] [place] [address] Performed By: #### 2 880-3, 2342-4 ####[facility]ATORYCLIA [id number] [address] [facility] THERAPY NTon 07-26-2021 THERAPY NT Normal [facility] TSH SerPl-aCncon 07-26-2021 TSH Qn 1.470 m[IU]/L Normal 0.270-4.200 [facility] Comment on above: Order Comment: Speci men Type: BLOOD SPECIMENOrdering Facility: [facility] Address: [address] [place] [address] Performed By: #### 1 9123-9, 2777-1, 3016-3 ####[facility]ATORYCLIA [id number] [address] [place] VITAMIN B12 BLOODon 07-27-19 Cobalamin (Vitamin B12) [Mass/Vol] 934 pg/mL Normal 232-1,245 [facility] Comment on above: Order Comment: Speci men Type: BLOOD SPECIMENOrdering Facility: [facility] Address: [address] [place] [address] Performed By: #### B 12 ####[facility]ATORYCLIA [id number] [address] [place] aPTT PPPon 07-26-2021 aPTT Coag (PPP) [Time] 53.6 s High 23.0-32.4 [facility] Comment on above: Order Comment: Speci men Type: BLOOD SPECIMENOrdering Facility: [facility] Address: [address] [place] [address] Performed By: #### 1 4979-9 ####[facility]ATORYCLIA [id number] [address] aPTT Coag (PPP) [Time] 44.9 s High 23.0-32.4 [facility] Comment on above: Order Comment: Speci men Type: BLOOD SPECIMENOrdering Facility: [facility] Address: [address] [place] [address] Performed By: #### 1 4979-9 ####[facility]ATORYCLIA [id number] [address] ALLIED HEALTHon 07-25-2021 ALLIED HEALTH HNO ID: [id number] Author: RT Rajwinder(R) Service: Radiology Author Type: Technologist Type: Allied Health Filed: 07/25/2021 1:37 PM Note Text: Called floor for MRI screening form [id number] Normal [facility] Bacteria Bld Culton 07-26-19 Bacteria identified Cx Nom (Bld) CULTURE, BLOOD: No growth 5 days Normal [facility] Comment on above: Performed By: #### 6 00-7 ####[facility]ATORYCLIA [id number] [address] Bacteria identified Cx Nom (Bld) CULTURE, BLOOD: No growth 5 days Normal [facility] Comment on above: Performed By: #### 6 00-7 ####[facility]ATORYCLIA [id number] [address] CASE MANAGEMon 07-25-2021 CASE MANAGEM Normal [facility] CBC W Auto Differential pane l (Bld)on 07-25-2021 Basophils (Bld) [#/Vol] 0.06 10*3/uL Normal <0.11 [facility] Comment on above: Order Comment: Speci men Type: BLOOD SPECIMENOrdering Facility: [facility] Address: [address] [place] [address] Performed By: #### 5 7021-8 ####[facility]ATORYCLIA [id number] [address] [place] [facility] Basophils/100 WBC (Bld) 0.6 % Normal [facility] Comment on above: Order Comment: Speci men Type: BLOOD SPECIMENOrdering Facility: [facility] Address: [address] [place] [address] Performed By: #### 5 7021-8 ####[facility]ORATORYCLIA [id number] [address] Differential cell count method Nom (Bld) Auto Normal [facility] Comment on above: Order Comment: Speci men Type: BLOOD SPECIMENOrdering Facility: [facility] Address: [address] [place] [address] Performed By: #### 5 7021-8 ####[facility]ATORYCLIA [id number] [address] Eosinophils (Bld) [#/Vol] 0.26 10*3/uL Normal <0.46 [facility] Comment on above: Order Comment: Speci men Type: BLOOD SPECIMENOrdering Facility: [facility] Address: [address] [place] [address] Performed By: #### 5 7021-8 ####[facility]ATORYCLIA [id number] [address] Eosinophils/100 WBC (Bld) 2.5 % Normal [facility] Comment on above: Order Comment: Speci men Type: BLOOD SPECIMENOrdering Facility: [facility] Address: [address] [place] [address] Performed By: #### 5 7021-8 ####[facility]ORATORYCLIA [id number] [address] [place] [facility] Erythrocyte distribution width (RBC) [Ratio] 16.9 % High 11.5-15.0 [facility] Comment on above: Order Comment: Speci men Type: BLOOD SPECIMENOrdering Facility: [facility] Address: [address] [place] [address] Performed By: #### 5 7021-8 ####[facility]ORATORYCLIA [id number] [address] [facility] Hematocrit (Bld) [Volume fraction] 29.6 % Low 39.0-51.0 [facility] Comment on above: Order Comment: Speci men Type: BLOOD SPECIMENOrdering Facility: [facility] Address: [address] [place] [address] Performed By: #### 5 7021-8 ####[facility]ATORYCLIA [id number] [address] Hemoglobin (Bld) [Mass/Vol] 8.8 g/dL Low 13.0-17.0 [facility] Comment on above: Order Comment: Speci men Type: BLOOD SPECIMENOrdering Facility: [facility] Address: [address] [place] [address] Performed By: #### 5 7021-8 ####[facility]ATORYCLIA [id number] [address] IMMATURE GRAN % 0.6 % Normal [facility] Comment on above: Order Comment: Speci men Type: BLOOD SPECIMENOrdering Facility: [facility] Address: [address] [place] [address] Performed By: #### 5 7021-8 ####[facility]ATORYCLIA [id number] [address] IMMATURE GRAN ABS 0.06 k/uL Normal <0.10 [facility] Comment on above: Order Comment: Speci men Type: BLOOD SPECIMENOrdering Facility: [facility] Address: [address] [place] [address] Performed By: #### 5 7021-8 ####[facility]ORATORYCLIA [id number] [address] [place] Lymphocytes (Bld) [#/Vol] 2.15 10*3/uL Normal 1.00-4.00 [facility] Comment on above: Order Comment: Speci men Type: BLOOD SPECIMENOrdering Facility: [facility] Address: [address] [place] [address] Performed By: #### 5 7021-8 ####[facility]ATORYCLIA [id number] [address] Lymphocytes/100 WBC (Bld) 20.7 % Normal [facility] Comment on above: Order Comment: Speci men Type: BLOOD SPECIMENOrdering Facility: [facility] Address: [address] [place] [address] Performed By: #### 5 7021-8 ####[facility]ORATORYCLIA [id number] [address] [place] [facility] MCH (RBC) [Entitic mass] 28.2 pg Normal 26.0-34.0 [facility] Comment on above: Order Comment: Speci men Type: BLOOD SPECIMENOrdering Facility: [facility] Address: [address] [place] [address] Performed By: #### 5 7021-8 ####[facility]ORATORYCLIA [id number] [address] [place] MCHC (RBC) [Mass/Vol] 29.7 g/dL Low 30.5-36.0 [facility] Comment on above: Order Comment: Speci men Type: BLOOD SPECIMENOrdering Facility: [facility] Address: [address] [place] [address] Performed By: #### 5 7021-8 ####[facility]ATORYCLIA [id number] [address] [place] MCV (RBC) [Entitic vol] 94.9 fL Normal 80.0-100.0 [facility] Comment on above: Order Comment: Speci men Type: BLOOD SPECIMENOrdering Facility: [facility] Address: [address] [place] [address] Performed By: #### 5 7021-8 ####[facility]ORATORYCLIA [id number] [address] [place] Monocytes (Bld) [#/Vol] 0.62 10*3/uL Normal <0.87 [facility] Comment on above: Order Comment: Speci men Type: BLOOD SPECIMENOrdering Facility: [facility] Address: [address] [place] [address] Performed By: #### 5 7021-8 ####[facility]ATORYCLIA [id number] [address] [place] Monocytes/100 WBC (Bld) 6.0 % Normal [facility] Comment on above: Order Comment: Speci men Type: BLOOD SPECIMENOrdering Facility: [facility] Address: [address] [place] [address] Performed By: #### 5 7021-8 ####[facility]ORATORYCLIA [id number] [place] [address] [place] Neutrophils (Bld) [#/Vol] 7.25 10*3/uL Normal 1.45-7.50 [facility] Comment on above: Order Comment: Speci men Type: BLOOD SPECIMENOrdering Facility: [facility] Address: [address] [place] [address] Performed By: #### 5 7021-8 ####[facility]ATORYCLIA [id number] [address] [place] Neutrophils/100 WBC (Bld) 69.6 % Normal [facility] Comment on above: Order Comment: Speci men Type: BLOOD SPECIMENOrdering Facility: [facility] Address: [address] [place] [address] Performed By: #### 5 7021-8 ####[facility]ATORYCLIA [id number] [place] [address] [place] Nucleated RBC (Bld) [#/Vol] 10*3/uL Normal <0.01 [facility] Comment on above: Order Comment: Speci men Type: BLOOD SPECIMENOrdering Facility: [facility] Address: [address] [place] [address] Performed By: #### 5 7021-8 ####[facility]ORATORYCLIA [id number] [address] [place] [facility] Nucleated RBC/100 WBC (Bld) [Ratio] 0.0 /100 WBC Normal [facility] Comment on above: Order Comment: Speci men Type: BLOOD SPECIMENOrdering Facility: [facility] Address: [address] [place] [address] Performed By: #### 5 7021-8 ####[facility]ORATORYCLIA [id number] [address] [place] Platelet mean volume (Bld) [Entitic vol] 11.3 fL Normal 9.0-12.7 [facility] Comment on above: Order Comment: Speci men Type: BLOOD SPECIMENOrdering Facility: [facility] Address: [address] [place], [place] [address] Performed By: #### 5 7021-8 ####[facility]ORATORYCLIA [id number] [address] [place] Platelets (Bld) [#/Vol] 243 10*3/uL Normal 150-400 [facility] Comment on above: Order Comment: Speci men Type: BLOOD SPECIMENOrdering Facility: [facility] Address: [address] [place], [place] [address] Performed By: #### 5 7021-8 ####[facility]ATORYCLIA [id number] [address] [place] RBC (Bld) [#/Vol] 3.12 10*6/uL Low 4.20-6.00 [facility] Comment on above: Order Comment: Speci men Type: BLOOD SPECIMENOrdering Facility: [facility] Address: [address] [place], [place] [address] Performed By: #### 5 7021-8 ####[facility]ATORYCLIA [id number] [address] [place] [facility] WBC (Bld) [#/Vol] 10.40 10*3/uL Normal 3.70-11.00 [facility] Comment on above: Order Comment: Speci men Type: BLOOD SPECIMENOrdering Facility: [facility] Address: [address] [place] [address] Performed By: #### 5 7021-8 ####[facility]ATORYCLIA [id number] [address] CONSULT PROGon 07-25-2021 CONSULT PROG Normal [facility] MYCOPLASMA PNEUM IGMon 07-25 M. PNEUMO IGM, QUAL Negative Normal Negative [facility] Comment on above: Order Comment: Speci [facility] Type: BLOOD SPECIMENOrdering Facility: [facility] Address: [address] [place] [address] Result Comment: Myco plasma pneumoniae IgM antibody test is used as an aid in diagnosis of recent infection with M. pneumoniae. It may occasionally remain elevated for extended periods after an acute infection. Cannot exclude recent infection if the specimen collected 7-10 days after onset of signs and symptoms. Clinical correlation is required. Performed By: #### M YCOPM ####[facility] LABCLIA [id number] [facility] [id number] [place] [facility] NURSING PROGon 07-25-2021 NURSING PROG Normal [facility] THERAPY NTon 07-25-2021 THERAPY NT Normal [facility] THERAPY NT Normal [facility] aPTT PPPon 07-25-2021 aPTT Coag (PPP) [Time] 62.6 s High 23.0-32.4 [facility] Comment on above: Order Comment: Speci men Type: BLOOD SPECIMENOrdering Facility: [facility] Address: [address] [place] [address] Performed By: #### 1 4979-9 ####[facility]ORATORYCLIA [id number] [address] [place] Bacteria Ur Culton 2 Bacteria identified Cx Nom (U) CULTURE, URINE: No growth (<100 CFU/ml) Normal [facility] Comment on above: Performed By: #### 6 30-4 ####[facility]ORATORYCLIA [id number] [place] [address] [place] Basic metabolic 2000 panelon 07-24-2021 Anion gap [Moles/Vol] 13 mmol/L Normal 9-18 [facility] Comment on above: Order Comment: Speci men Type: BLOOD SPECIMENOrdering Facility: [facility] Address: [address] [place] [address] Performed By: #### 1 9123-9, KATIE, 2776-, 65948-3 ####[facility]ORATORYCLIA [id number] [place] [address] [place] Calcium [Mass/Vol] 9.5 mg/dL Normal 8.5-10.2 [facility] Comment on above: Order Comment: Speci men Type: BLOOD SPECIMENOrdering Facility: [facility] Address: [address] [place] [address] Performed By: #### 1 9123-9, KATIE, 2776-05, 11707-5 ####[facility]ORATORYCLIA [id number] [place] [address] [place] Chloride [Moles/Vol] 102 mmol/L Normal 97-105 [facility] Comment on above: Order Comment: Speci men Type: BLOOD SPECIMENOrdering Facility: [facility] Address: [address] [address] Performed By: #### 1 9123-9, KATIE, 2776-05, 66252-6 ####[facility]ATORYCLIA [id number] [place] [address] [place] CO2 [Moles/Vol] 28 mmol/L Normal 22-30 [facility] Comment on above: Order Comment: Speci men Type: BLOOD SPECIMENOrdering Facility: [facility] Address: [address] [address] Performed By: #### 1 9123-9, PROCAL, 2777-1, 55536-8 ####[facility] CENTERIA [id number] [address] Creatinine [Mass/Vol] 0.86 mg/dL Normal 0.73-1.22 [facility] Comment on above: Order Comment: Shira feldman Type: BLOOD SPECIMENOrdering Facility: [facility] Address: [address] [place] [address] Performed By: #### 1 9123-9, PROCWI, 2777-1, 77413-8 ####[facility] CENTERIA [id number] [address] OF [facility] ESTIMATED GLOMERULAR FILTRATION RATE 94 mL/min/1.73m??? Normal >=60 [facility] Comment on above: Order Comment: Shira feldman Type: BLOOD SPECIMENOrdering Facility: [facility] Address: [address] [place] [address] Result Comment: Luzmaria mated Glomerular Filtration Rate [...] Performed By: #### 1 9123-9, PROCAL, 2777-1, 50051-2 ####[facility] CENTERIA [id number] [address] [place] Glucose [Mass/Vol] 148 mg/dL High 74-99 [facility] Comment on above: Order Comment: Shira feldman Type: BLOOD SPECIMENOrdering Facility: [facility] Address: [address] [address] Result Comment: The [place] [employer] (ADA) provides guidance for cutoff [...] Standards of Medical Care in Diabetes 2016, [place] [employer]. Diabetes Care. 2016.39(Suppl 1). Performed By: #### 1 9123-9, PROCAL, 2776-, 44001-7 ####[facility]ORATORYCLIA [id number] [place] [address] [place] Potassium [Moles/Vol] 4.0 mmol/L Normal 3.7-5.1 [facility] Comment on above: Order Comment: Shira feldman Type: BLOOD SPECIMENOrdering Facility: [facility] Address: [address] [place] [address] Performed By: #### 1 9123-9, [facility], 2776-05, 20444-2 ####[facility]IANACLIA [id number] [place] [address] [place] Sodium [Moles/Vol] 143 mmol/L Normal 136-144 [facility] Comment on above: Order Comment: Shira feldman Type: BLOOD SPECIMENOrdering Facility: [facility] Address: [address] [place] [address] Performed By: #### 1 9123-9, PROCWI, 2776-05, 45224-9 ####[facility]ORATORYCLIA [id number] [place] [address] [place] Urea nitrogen [Mass/Vol] 38 mg/dL High 9-24 [facility] Comment on above: Order Comment: Johni men Type: BLOOD SPECIMENOrdering Facility: [facility] Address: [address] [address] Performed By: #### 1 9123-9, PROCAL, 2776-05, 57646-9 ####[facility]ORATORYCLIA [id number] [address] STATES [place] [facility] CBC W Auto Differential pane l (Bld)on 07-24-2021 Basophils (Bld) [#/Vol] 0.06 10*3/uL Normal <0.11 [facility] Comment on above: Order Comment: Speci men Type: BLOOD SPECIMENOrdering Facility: [facility] Address: [address] [place] [address] Performed By: #### 5 7021-8 ####[facility]ORATORYCLIA [id number] [address] STATES [facility] Basophils/100 WBC (Bld) 0.6 % Normal [facility] Comment on above: Order Comment: Speci men Type: BLOOD SPECIMENOrdering Facility: [facility] Address: [address] [place] [address] Performed By: #### 5 7021-8 ####[facility]ORATORYCLIA [id number] [address] Differential cell count method Nom (Bld) Auto Normal [facility] Comment on above: Order Comment: Speci men Type: BLOOD SPECIMENOrdering Facility: [facility] Address: [address] [place] [address] Performed By: #### 5 7021-8 ####[facility]ATORYCLIA [id number] [address] [place] Eosinophils (Bld) [#/Vol] 0.03 10*3/uL Normal <0.46 [facility] Comment on above: Order Comment: Speci men Type: BLOOD SPECIMENOrdering Facility: [facility] Address: [address] [place] [address] Performed By: #### 5 7021-8 ####[facility]ATORYCLIA [id number] [address] Eosinophils/100 WBC (Bld) 0.3 % Normal [facility] Comment on above: Order Comment: Speci men Type: BLOOD SPECIMENOrdering Facility: [facility] Address: [address] [place], [place] [address] Performed By: #### 5 7021-8 ####[facility]ATORYCLIA [id number] [address] Erythrocyte distribution width (RBC) [Ratio] 17.0 % High 11.5-15.0 [facility] Comment on above: Order Comment: Speci men Type: BLOOD SPECIMENOrdering Facility: [facility] Address: [address] [place] [address] Performed By: #### 5 7021-8 ####[facility]ATORYCLIA [id number] [address] Hematocrit (Bld) [Volume fraction] 30.5 % Low 39.0-51.0 [facility] Comment on above: Order Comment: Speci men Type: BLOOD SPECIMENOrdering Facility: [facility] Address: [address] [place] [address] Performed By: #### 5 7021-8 ####[facility]ATORYCLIA [id number] [address] Hemoglobin (Bld) [Mass/Vol] 9.0 g/dL Low 13.0-17.0 [facility] Comment on above: Order Comment: Speci men Type: BLOOD SPECIMENOrdering Facility: [facility] Address: [address] [place] [address] Performed By: #### 5 7021-8 ####[facility]ORATORYCLIA [id number] [address] IMMATURE GRAN % 0.5 % Normal [facility] Comment on above: Order Comment: Speci men Type: BLOOD SPECIMENOrdering Facility: [facility] Address: [address] [place] [address] Performed By: #### 5 7021-8 ####[facility]ATORYCLIA [id number] [address] IMMATURE GRAN ABS 0.05 k/uL Normal <0.10 [facility] Comment on above: Order Comment: Speci men Type: BLOOD SPECIMENOrdering Facility: [facility] Address: [address] [place] [address] Performed By: #### 5 7021-8 ####[facility]ATORYCLIA [id number] [address] Lymphocytes (Bld) [#/Vol] 1.68 10*3/uL Normal 1.00-4.00 [facility] Comment on above: Order Comment: Speci men Type: BLOOD SPECIMENOrdering Facility: [facility] Address: [address] [place] [address] Performed By: #### 5 7021-8 ####[facility]ATORYCLIA [id number] [address] Lymphocytes/100 WBC (Bld) 16.2 % Normal [facility] Comment on above: Order Comment: Speci men Type: BLOOD SPECIMENOrdering Facility: [facility] Address: [address] [place] [address] Performed By: #### 5 7021-8 ####[facility]ATORYCLIA [id number] [address] MCH (RBC) [Entitic mass] 27.4 pg Normal 26.0-34.0 [facility] Comment on above: Order Comment: Speci men Type: BLOOD SPECIMENOrdering Facility: [facility] Address: [address] [place] [address] Performed By: #### 5 7021-8 ####[facility]ATORYCLIA [id number] [address] [place] MCHC (RBC) [Mass/Vol] 29.5 g/dL Low 30.5-36.0 [facility] Comment on above: Order Comment: Speci men Type: BLOOD SPECIMENOrdering Facility: [facility] Address: [address] [place] [address] Performed By: #### 5 7021-8 ####[facility]ORATORYCLIA [id number] [place] [address] [place] MCV (RBC) [Entitic vol] 93.0 fL Normal 80.0-100.0 [facility] Comment on above: Order Comment: Speci men Type: BLOOD SPECIMENOrdering Facility: [facility] Address: [address] [place] [address] Performed By: #### 5 7021-8 ####[facility]ATORYCLIA [id number] [place] [address] [place] Monocytes (Bld) [#/Vol] 0.63 10*3/uL Normal <0.87 [facility] Comment on above: Order Comment: Speci men Type: BLOOD SPECIMENOrdering Facility: [facility] Address: [address] [place] [address] Performed By: #### 5 7021-8 ####[facility]ATORYCLIA [id number] [address] Monocytes/100 WBC (Bld) 6.1 % Normal [facility] Comment on above: Order Comment: Speci men Type: BLOOD SPECIMENOrdering Facility: [facility] Address: [address] [place] [address] Performed By: #### 5 7021-8 ####[facility]ATORYCLIA [id number] [address] [place] Neutrophils (Bld) [#/Vol] 7.91 10*3/uL High 1.45-7.50 [facility] Comment on above: Order Comment: Speci men Type: BLOOD SPECIMENOrdering Facility: [facility] Address: [address] [place] [address] Performed By: #### 5 7021-8 ####[facility]ATORYCLIA [id number] [address] [place] Neutrophils/100 WBC (Bld) 76.3 % Normal [facility] Comment on above: Order Comment: Speci men Type: BLOOD SPECIMENOrdering Facility: [facility] Address: [address] [place] [address] Performed By: #### 5 7021-8 ####[facility]ATORYCLIA [id number] [address] [place] Nucleated RBC (Bld) [#/Vol] 10*3/uL Normal <0.01 [facility] Comment on above: Order Comment: Speci men Type: BLOOD SPECIMENOrdering Facility: [facility] Address: [address] [place] [address] Performed By: #### 5 7021-8 ####[facility]ATORYCLIA [id number] [address] [place] Nucleated RBC/100 WBC (Bld) [Ratio] 0.0 /100 WBC Normal [facility] Comment on above: Order Comment: Speci men Type: BLOOD SPECIMENOrdering Facility: [facility] Address: [address] [place] [address] Performed By: #### 5 7021-8 ####[facility]ATORYCLIA [id number] [address] Platelet mean volume (Bld) [Entitic vol] 11.1 fL Normal 9.0-12.7 [facility] Comment on above: Order Comment: Speci men Type: BLOOD SPECIMENOrdering Facility: [facility] Address: [address] [place] [address] Performed By: #### 5 7021-8 ####[facility]ATORYCLIA [id number] [address] [place] Platelets (Bld) [#/Vol] 285 10*3/uL Normal 150-400 [facility] Comment on above: Order Comment: Speci men Type: BLOOD SPECIMENOrdering Facility: [facility] Address: [address] [place] [address] Performed By: #### 5 7021-8 ####[facility]ATORYCLIA [id number] [address] [place] RBC (Bld) [#/Vol] 3.28 10*6/uL Low 4.20-6.00 [facility] Comment on above: Order Comment: Speci men Type: BLOOD SPECIMENOrdering Facility: [facility] Address: [address] [place] [address] Performed By: #### 5 7021-8 ####[facility]ATORYCLIA [id number] [place] [address] [place] WBC (Bld) [#/Vol] 10.36 10*3/uL Normal 3.70-11.00 [facility] Comment on above: Order Comment: Speci men Type: BLOOD SPECIMENOrdering Facility: [facility] Address: [address] [place] [address] Performed By: #### 5 7021-8 ####[facility]ATORYCLIA [id number] [address] [place] Legionella Ag Ur Qlon 2021 Legionella sp Ag Ql (U) Negative Normal Negative [facility] Comment on above: Order Comment: Speci men Type: URINE SPECIMENOrdering Facility: [facility] Address: [address] [place] [address] Performed By: #### 3 2781-7 ####[facility]ATORYCLIA [id number] [place] [address] [place] Magnesium SerPl-mCncon 07-24 Magnesium [Mass/Vol] 2.3 mg/dL Normal 1.7-2.3 [facility] Comment on above: Order Comment: Speci men Type: BLOOD SPECIMENOrdering Facility: [facility] Address: [address] [place] [address] Performed By: #### 1 9123-9, PROCAL, 2777-1, 57833-7 ####[facility]ATORYCLIA [id number] [place] [address] [place] NURSING PROGon 07-24-2021 NURSING PROG Normal [facility] PROCALCITONIN (LAB)on 2021 Procalcitonin [Mass/Vol] 0.15 ng/mL High <0.09 [facility] Comment on above: Order Comment: Speci men Type: BLOOD SPECIMENOrdering Facility: [facility] Address: [address] [place] [address] Result Comment: For a guided interpretation of test results, please visit the Change in Procalcitonin Calculator, [email or web address]. Performed By: #### 1 9123-9, PROCAL, 2777-1, 69962-1 ####[facility]ORATORYCLIA [id number] [place] [address] [place] Phosphate SerPl-mCncon 07-24 Phosphate [Mass/Vol] 3.9 mg/dL Normal 2.7-4.8 [facility] Comment on above: Order Comment: Speci men Type: BLOOD SPECIMENOrdering Facility: [facility] Address: [address] [place] [address] Performed By: #### 1 9123-9, PROCAL, 2777-1, 76153-0 ####[facility]ATORYCLIA [id number] [place] [address] [place] STREPTOCOCCUS PNEUMONIAE AGo n 07-24-2021 STREPTOCOCCUS PNEUMONIAE AG Normal [facility] Comment on above: Performed By: #### S PNAG ####[facility]ORATORYCLIA [id number] [address] [place] aPTT PPPon 07-24-2021 aPTT Coag (PPP) [Time] 60.8 s High 23.0-32.4 [facility] Comment on above: Order Comment: Speci men Type: BLOOD SPECIMENOrdering Facility: [facility] Address: [address] [place] [address] Performed By: #### 1 4979-9 ####[facility]ATORYCLIA [id number] [address] [place] aPTT Coag (PPP) [Time] 38.2 s High 23.0-32.4 [facility] Comment on above: Order Comment: Speci men Type: BLOOD SPECIMENOrdering Facility: [facility] Address: [address] [address] Performed By: #### 1 4979-9 ####[facility]ATORYCLIA [id number] [address] aPTT Coag (PPP) [Time] 35.9 s High 23.0-32.4 [facility] Comment on above: Order Comment: Speci men Type: BLOOD SPECIMENOrdering Facility: [facility] Address: [address] [place] [address] Performed By: #### 1 4979-9 ####[facility]ATORYCLIA [id number] [address] aPTT Coag (PPP) [Time] 28.8 s Normal 23.0-32.4 [facility] Comment on above: Order Comment: Speci men Type: BLOOD SPECIMENOrdering Facility: [facility] Address: [address] [place] [address] Performed By: #### 1 4979-9 ####[facility]ATORYCLIA [id number] [address] [place] ALLIED HEALTHon 07-23-2021 ALLIED HEALTH Normal [facility] ALLIED HEALTH Normal [facility] ALLIED HEALTH Normal [facility] ARTERIAL BLOOD GASESon 07-23 Base excess Calc (Bld) [Moles/Vol] 4 mmol/L High 0-2 [facility] Comment on above: Order Comment: Speci men Type: ARTERIAL BLOOD SPECIMENOrdering Facility: [facility] Address: [address] [address] Performed By: #### A LLBG ####[facility]ORATORYCLIA [id number] [address] Body temperature 100.58 [degF] Normal [facility] Comment on above: Order Comment: Speci men Type: ARTERIAL BLOOD SPECIMENOrdering Facility: [facility] Address: [address] [place] [address] Performed By: #### A LLBG ####[facility]ORATORYCLIA [id number] [place] [address] [place] CALCIUM IONIZED, PH CORRECTED 1.26 mmol/L Normal 1.08-1.30 [facility] Comment on above: Order Comment: Speci men Type: ARTERIAL BLOOD SPECIMENOrdering Facility: [facility] Address: [address] [place] [address] Performed By: #### A LLBG ####[facility]ORATORYCLIA [id number] [place] [address] [place] Calcium.ionized (BldV) [Mass/Vol] 1.25 mmol/L Normal 1.08-1.30 [facility] Comment on above: Order Comment: Speci men Type: ARTERIAL BLOOD SPECIMENOrdering Facility: [facility] Address: [address] [place] [address] Performed By: #### A LLBG ####[facility] CENTERIA [id number] [address] OF [facility] Carboxyhemoglobin (BldA) [Mass fraction] 1.2 % Normal 0.0-2.0 [facility] Comment on above: Order Comment: Speci men Type: ARTERIAL BLOOD SPECIMENOrdering Facility: [facility] Address: [address] [place] [address] Result Comment: Carb oxyhemoglobin Reference Range for Smokers: 2.0-8.0% Performed By: #### A LLBG ####[facility]ORATORYCLIA [id number] [place] [address] [place] CO2 (Bld) [Partial pressure] 46 mm Hg Normal 36-46 [facility] Comment on above: Order Comment: Speci men Type: ARTERIAL BLOOD SPECIMENOrdering Facility: [facility] Address: [address] [place] [address] Performed By: #### A LLBG ####[facility]ORATORYCLIA [id number] [place] [address] [place] CO2 [Moles/Vol] 27 mmol/L Normal 22-28 [facility] Comment on above: Order Comment: Speci men Type: ARTERIAL BLOOD SPECIMENOrdering Facility: [facility] Address: [address] [place] [address] Performed By: #### A LLBG ####[facility]ORATORYCLIA [id number] [address] CO2 adjusted to patient's actual temperature (Bld) [Partial pressure] 48 mmHg High 36-46 [facility] Comment on above: Order Comment: Speci men Type: ARTERIAL BLOOD SPECIMENOrdering Facility: [facility] Address: [address] [place] [address] Performed By: #### A LLBG ####[facility]ATORYCLIA [id number] [address] Glucose [Mass/Vol] 134 mg/dL High 60-105 [facility] Comment on above: Order Comment: Speci men Type: ARTERIAL BLOOD SPECIMENOrdering Facility: [facility] Address: [address] [place] [address] Performed By: #### A LLBG ####[facility]ATORYCLIA [id number] [address] [place] HCO3 (Bld) [Moles/Vol] 29 mmol/L High 22-26 [facility] Comment on above: Order Comment: Speci men Type: ARTERIAL BLOOD SPECIMENOrdering Facility: [facility] Address: [address] [place] [address] Performed By: #### A LLBG ####[facility]ORATORYCLIA [id number] [address] Hematocrit (Bld) [Volume fraction] 31.4 % Low 39.0-51.0 [facility] Comment on above: Order Comment: Speci men Type: ARTERIAL BLOOD SPECIMENOrdering Facility: [facility] Address: [address] [place] [address] Performed By: #### A LLBG ####[facility]ORATORYCLIA [id number] [address] [place] Hemoglobin (Bld) [Mass/Vol] 10.2 g/dL Low 13.0-17.0 [facility] Comment on above: Order Comment: Speci men Type: ARTERIAL BLOOD SPECIMENOrdering Facility: [facility] Address: [address] [address] Performed By: #### A LLBG ####[facility]ORATORYCLIA [id number] [address] Methemoglobin (Bld) [Mass fraction] % Normal 0.0-1.5 [facility] Comment on above: Order Comment: Speci men Type: ARTERIAL BLOOD SPECIMENOrdering Facility: [facility] Address: [address] [place] [address] Performed By: #### A LLBG ####[facility]ORATORYCLIA [id number] [address] O2 THERAPY Ventilator Normal [facility] Comment on above: Order Comment: Speci men Type: ARTERIAL BLOOD SPECIMENOrdering Facility: [facility] Address: [address] [place] [address] Performed By: #### A LLBG ####[facility]ORATORYCLIA [id number] [address] Oxygen (Bld) [Partial pressure] 113 mm Hg High 85-95 [facility] Comment on above: Order Comment: Speci men Type: ARTERIAL BLOOD SPECIMENOrdering Facility: [facility] Address: [address] Performed By: #### A LLBG ####[facility]ATORYCLIA [id number] [address] Oxygen adjusted to patient's actual temperature (Bld) [Partial pressure] 119 mmHg High 85-95 [facility] Comment on above: Order Comment: Speci men Type: ARTERIAL BLOOD SPECIMENOrdering Facility: [facility] Address: [address] [address] Performed By: #### A LLBG ####[facility]ORYCLIA [id number] [address] [place] OXYGEN SATURATION, ARTERIAL 98 % Normal 95-98 [facility] Comment on above: Order Comment: Speci men Type: ARTERIAL BLOOD SPECIMENOrdering Facility: [facility] Address: [address] [place] [address] Performed By: #### A LLBG ####[facility]ORATORYCLIA [id number] [address] [place] Oxyhemoglobin (BldA) [Mass fraction] 96 % Normal 95-98 [facility] Comment on above: Order Comment: Speci men Type: ARTERIAL BLOOD SPECIMENOrdering Facility: [facility] Address: [address] [place] [address] Performed By: #### A LLBG ####[facility]ORATORYCLIA [id number] [address] [place] pH (Bld) 7.41 [pH] Normal 7.35-7.45 [facility] Comment on above: Order Comment: Speci men Type: ARTERIAL BLOOD SPECIMENOrdering Facility: [facility] Address: [address] [place] [address] Performed By: #### A LLBG ####[facility]ORATORYCLIA [id number] [address] [place] [facility] pH adjusted to patient's actual temperature (Bld) 7.40 Normal 7.35-7.45 [facility] Comment on above: Order Comment: Speci men Type: ARTERIAL BLOOD SPECIMENOrdering Facility: [facility] Address: [address] [place] [address] Performed By: #### A LLBG ####[facility]ORATORYCLIA [id number] [place] [address] [place] Potassium [Moles/Vol] 4.3 mmol/L Normal 3.5-5.0 [facility] Comment on above: Order Comment: Speci men Type: ARTERIAL BLOOD SPECIMENOrdering Facility: [facility] Address: [address] [place] [address] Performed By: #### A LLBG ####[facility]ORATORYCLIA [id number] [place] [address] [place] Sodium [Moles/Vol] 144 mmol/L Normal 136-144 [facility] Comment on above: Order Comment: Speci men Type: ARTERIAL BLOOD SPECIMENOrdering Facility: [facility] Address: [address] [place] [address] Performed By: #### A LLBG ####[facility]ORATORYCLIA [id number] [address] OF [facility] Bacteria CSF Culton 07-24-19 22 Bacteria identified Cx Nom (CSF) Abnormal [facility] Comment on above: Performed By: #### 6 06-4 ####[facility]ORATORYCLIA [id number] [address] [place] Basic metabolic 2000 panelon 07-23-2021 Anion gap [Moles/Vol] 12 mmol/L Normal 9-18 [facility] Comment on above: Order Comment: Speci men Type: BLOOD SPECIMENOrdering Facility: [facility] Address: [address] [place] [address] Performed By: #### 2 4321-2 ####[facility]ORATORYCLIA [id number] [address] [place] Calcium [Mass/Vol] 9.7 mg/dL Normal 8.5-10.2 [facility] Comment on above: Order Comment: Speci men Type: BLOOD SPECIMENOrdering Facility: [facility] Address: [address] [place] [address] Performed By: #### 2 4321-2 ####[facility]ATORYCLIA [id number] [address] [place] Chloride [Moles/Vol] 105 mmol/L Normal 97-105 [facility] Comment on above: Order Comment: Speci men Type: BLOOD SPECIMENOrdering Facility: [facility] Address: [address] [place] [address] Performed By: #### 2 4321-2 ####[facility]ATORYCLIA [id number] [address] [place] CO2 [Moles/Vol] 28 mmol/L Normal 22-30 [facility] Comment on above: Order Comment: Speci men Type: BLOOD SPECIMENOrdering Facility: [facility] Address: [address] [place] [address] Performed By: #### 2 4321-2 ####[facility]ATORYCLIA [id number] [address] [place] Creatinine [Mass/Vol] 0.78 mg/dL Normal 0.73-1.22 [facility] Comment on above: Order Comment: Speci men Type: BLOOD SPECIMENOrdering Facility: [facility] Address: [address] [place] [address] Performed By: #### 2 4321-2 ####[facility]ORATORYIA [id number] [address] ESTIMATED GLOMERULAR FILTRATION RATE 97 mL/min/1.73m??? Normal >=60 [facility] Comment on above: Order Comment: Speci men Type: BLOOD SPECIMENOrdering Facility: [facility] Address: [address] [place] [address] Result Comment: Luzmaria mated Glomerular Filtration Rate [...] actual GFR. Performed By: #### 2 4321-2 ####[facility]ORATORYCLIA [id number] [address] [place] Glucose [Mass/Vol] 127 mg/dL High 74-99 [facility] Comment on above: Order Comment: Speci men Type: BLOOD SPECIMENOrdering Facility: [facility] Address: [address] [place] [address] Result Comment: The [place] [employer] (ADA) provides guidance for cutoff [...] Standards of Medical Care in Diabetes 2016, [place] [employer]. Diabetes Care. 2016.39(Suppl 1). Performed By: #### 2 4321-2 ####[facility]ATORYCLIA [id number] [address] [place] Potassium [Moles/Vol] 4.3 mmol/L Normal 3.7-5.1 [facility] Comment on above: Order Comment: Speci men Type: BLOOD SPECIMENOrdering Facility: [facility] Address: [address] [place] [address] Performed By: #### 2 1-2 ####[facility]ORATORYCLIA [id number] [address] [place] Sodium [Moles/Vol] 145 mmol/L High 136-144 [facility] Comment on above: Order Comment: Johni men Type: BLOOD SPECIMENOrdering Facility: [facility] Address: [address] [place] [address] Performed By: #### 2 1-2 ####[facility]ORATORYCLIA [id number] [address] [place] [facility] Urea nitrogen [Mass/Vol] 37 mg/dL High 9-24 [facility] Comment on above: Order Comment: Johni men Type: BLOOD SPECIMENOrdering Facility: [facility] Address: [address] [place] [address] Performed By: #### 2 4321-2 ####[facility]ORATORYCLIA [id number] [place] [address] [place] C diff Tox gens Stl Ql MEGAN+p robeon 07-23-2021 C. difficile toxin genes MEGAN+probe Ql (Stl) Negative Normal Negative for C. difficile toxin by PCR [facility] Comment on above: Order Comment: Speci men Type: STOOL SPECIMENOrdering Facility: [facility] Address: [address] [place] [address] Performed By: #### 5 4067-4 ####[facility]ATORYCLIA [id number] [place] [address] [place] [facility] CBC W Auto Differential pane l (Bld)on 07-23-2021 Basophils (Bld) [#/Vol] 0.07 10*3/uL Normal <0.11 [facility] Comment on above: Order Comment: Speci men Type: BLOOD SPECIMENOrdering Facility: [facility] Address: [address] [place] [address] Performed By: #### 5 7021-8 ####[facility]ATORYCLIA [id number] [address] [place] Basophils/100 WBC (Bld) 0.5 % Normal [facility] Comment on above: Order Comment: Speci men Type: BLOOD SPECIMENOrdering Facility: [facility] Address: [address] [place] [address] Performed By: #### 5 7021-8 ####[facility]ATORYCLIA [id number] [address] [place] [facility] Differential cell count method Nom (Bld) Auto Normal [facility] Comment on above: Order Comment: Speci men Type: BLOOD SPECIMENOrdering Facility: [facility] Address: [address] [place] [address] Performed By: #### 5 7021-8 ####[facility]ATORYCLIA [id number] [place] [address] [place] Eosinophils (Bld) [#/Vol] 10*3/uL Normal <0.46 [facility] Comment on above: Order Comment: Speci men Type: BLOOD SPECIMENOrdering Facility: [facility] Address: [address] [place] [address] Performed By: #### 5 7021-8 ####[facility]ATORYCLIA [id number] [address] [place] Eosinophils/100 WBC (Bld) 0.2 % Normal [facility] Comment on above: Order Comment: Speci men Type: BLOOD SPECIMENOrdering Facility: [facility] Address: [address] [place] [address] Performed By: #### 5 7021-8 ####[facility]ATORYCLIA [id number] [address] [place] Erythrocyte distribution width (RBC) [Ratio] 16.7 % High 11.5-15.0 [facility] Comment on above: Order Comment: Speci men Type: BLOOD SPECIMENOrdering Facility: [facility] Address: [address] [place] [address] Performed By: #### 5 7021-8 ####[facility]ATORYCLIA [id number] [address] [place] Hematocrit (Bld) [Volume fraction] 32.8 % Low 39.0-51.0 [facility] Comment on above: Order Comment: Speci men Type: BLOOD SPECIMENOrdering Facility: [facility] Address: [address] [place] [address] Performed By: #### 5 7021-8 ####[facility]ATORYCLIA [id number] [address] [place] Hemoglobin (Bld) [Mass/Vol] 9.7 g/dL Low 13.0-17.0 [facility] Comment on above: Order Comment: Speci men Type: BLOOD SPECIMENOrdering Facility: [facility] Address: [address] [place] [address] Performed By: #### 5 7021-8 ####[facility]ORYCLIA [id number] [address] [place] IMMATURE GRAN % 0.7 % Normal [facility] Comment on above: Order Comment: Speci men Type: BLOOD SPECIMENOrdering Facility: [facility] Address: [address] [place] [address] Performed By: #### 5 7021-8 ####[facility]ATORYCLIA [id number] [address] [place] [facility] IMMATURE GRAN ABS 0.09 k/uL Normal <0.10 [facility] Comment on above: Order Comment: Speci men Type: BLOOD SPECIMENOrdering Facility: [facility] Address: [address] [place] [address] Performed By: #### 5 7021-8 ####[facility]ATORYCLIA [id number] [address] [place] Lymphocytes (Bld) [#/Vol] 1.94 10*3/uL Normal 1.00-4.00 [facility] Comment on above: Order Comment: Speci men Type: BLOOD SPECIMENOrdering Facility: [facility] Address: [address] [place] [address] Performed By: #### 5 7021-8 ####[facility]ATORYCLIA [id number] [address] Lymphocytes/100 WBC (Bld) 14.6 % Normal [facility] Comment on above: Order Comment: Speci men Type: BLOOD SPECIMENOrdering Facility: [facility] Address: [address] [place] [address] Performed By: #### 5 7021-8 ####[facility]ATORYCLIA [id number] [address] [place] MCH (RBC) [Entitic mass] 27.2 pg Normal 26.0-34.0 [facility] Comment on above: Order Comment: Speci men Type: BLOOD SPECIMENOrdering Facility: [facility] Address: [address] [place] [address] Performed By: #### 5 7021-8 ####[facility]ATORYCLIA [id number] [address] MCHC (RBC) [Mass/Vol] 29.6 g/dL Low 30.5-36.0 [facility] Comment on above: Order Comment: Speci men Type: BLOOD SPECIMENOrdering Facility: [facility] Address: [address] [place] [address] Performed By: #### 5 7021-8 ####[facility]ATORYCLIA [id number] [address] MCV (RBC) [Entitic vol] 92.1 fL Normal 80.0-100.0 [facility] Comment on above: Order Comment: Speci men Type: BLOOD SPECIMENOrdering Facility: [facility] Address: [address] [place] [address] Performed By: #### 5 7021-8 ####[facility]ATORYCLIA [id number] [address] [place] Monocytes (Bld) [#/Vol] 0.74 10*3/uL Normal <0.87 [facility] Comment on above: Order Comment: Speci men Type: BLOOD SPECIMENOrdering Facility: [facility] Address: [address] [place] [address] Performed By: #### 5 7021-8 ####[facility]ATORYCLIA [id number] [address] Monocytes/100 WBC (Bld) 5.6 % Normal [facility] Comment on above: Order Comment: Speci men Type: BLOOD SPECIMENOrdering Facility: [facility] Address: [address] [place] [address] Performed By: #### 5 7021-8 ####[facility]ATORYCLIA [id number] [address] [place] Neutrophils (Bld) [#/Vol] 10.43 10*3/uL High 1.45-7.50 [facility] Comment on above: Order Comment: Speci men Type: BLOOD SPECIMENOrdering Facility: [facility] Address: [address] [place] [address] Performed By: #### 5 7021-8 ####[facility]ATORYCLIA [id number] [address] Neutrophils/100 WBC (Bld) 78.4 % Normal [facility] Comment on above: Order Comment: Speci men Type: BLOOD SPECIMENOrdering Facility: [facility] Address: [address] [place] [address] Performed By: #### 5 7021-8 ####[facility]ATORYCLIA [id number] [address] Nucleated RBC (Bld) [#/Vol] 10*3/uL Normal <0.01 [facility] Comment on above: Order Comment: Speci men Type: BLOOD SPECIMENOrdering Facility: [facility] Address: [address] [place] [address] Performed By: #### 5 7021-8 ####[facility]ATORYCLIA [id number] [address] Nucleated RBC/100 WBC (Bld) [Ratio] 0.0 /100 WBC Normal [facility] Comment on above: Order Comment: Speci men Type: BLOOD SPECIMENOrdering Facility: [facility] Address: [address] [place] [address] Performed By: #### 5 7021-8 ####[facility]ATORYCLIA [id number] [address] [place] Platelet mean volume (Bld) [Entitic vol] 11.0 fL Normal 9.0-12.7 [facility] Comment on above: Order Comment: Speci men Type: BLOOD SPECIMENOrdering Facility: [facility] Address: [address] [place] [address] Performed By: #### 5 7021-8 ####[facility]ATORYCLIA [id number] [address] [place] Platelets (Bld) [#/Vol] 381 10*3/uL Normal 150-400 [facility] Comment on above: Order Comment: Speci men Type: BLOOD SPECIMENOrdering Facility: [facility] Address: [address] [place] [address] Performed By: #### 5 7021-8 ####[facility]ATORYCLIA [id number] [address] [facility] RBC (Bld) [#/Vol] 3.56 10*6/uL Low 4.20-6.00 [facility] Comment on above: Order Comment: Speci men Type: BLOOD SPECIMENOrdering Facility: [facility] Address: [address] [place] [address] Performed By: #### 5 7021-8 ####[facility]ATORYCLIA [id number] [address] [facility] WBC (Bld) [#/Vol] 13.29 10*3/uL High 3.70-11.00 [facility] Comment on above: Order Comment: Speci men Type: BLOOD SPECIMENOrdering Facility: [facility] Address: [address] [place] [address] Performed By: #### 5 7021-8 ####[facility]ATORYCLIA [id number] [address] CONSULT PROGon 07-23-2021 CONSULT PROG Normal [facility] CONSULT PROG Normal [facility] CSF MANUAL DIFFon 07-23-2021 DIF TTL, CSF 100 cells counted Normal [facility] Comment on above: Order Comment: Speci men Type: CEREBROSPINAL FLUIDOrdering Facility: [facility] Address: [address] [place] [address] Performed By: #### L [id number], [id number], 91812-4 ####[facility]ATORYCLIA [id number] [address] [place] LYMPH%, CSF 2 % Low 50-90 [facility] Comment on above: Order Comment: Speci men Type: CEREBROSPINAL FLUIDOrdering Facility: [facility] Address: [address] [place] [address] Performed By: #### L [id number], [id number], 15811-1 ####[facility]ATORYCLIA [id number] [place] [address] [place] MONO%, CSF 9 % Low 10-50 [facility] Comment on above: Order Comment: Speci men Type: CEREBROSPINAL FLUIDOrdering Facility: [facility] Address: [address] [place] [address] Performed By: #### L [id number], [id number], 66283-6 ####[facility]ATORYCLIA [id number] [place] [address] [place] NEUT%, CSF 89 % High 0-3 [facility] Comment on above: Order Comment: Speci men Type: CEREBROSPINAL FLUIDOrdering Facility: [facility] Address: [address] [place] [address] Performed By: #### L [id number], [id number], 33172-0 ####[facility]ATORYCLIA [id number] [address] CSF PATHOLOGIST INTERP (LAB REFLEX ORDER-NO BILL)on 07-23-2021 CSF STAFF REVIEW Negative for maligna nt cells. Numerous bacterial organisms present, cocci in pairs and chains. Recommend correlation with CSF culture results. Normal [facility] Comment on above: Order Comment: Speci men Type: CEREBROSPINAL FLUIDOrdering Facility: [facility] Address: [address] [place] [address] Performed By: #### L [id number], [id number], 52476-0 ####[facility]ATORYCLIA [id number] [address] Pathologist name Reviewed by Amador Stevens MD Normal [facility] Comment on above: Order Comment: Speci men Type: CEREBROSPINAL FLUIDOrdering Facility: [facility] Address: [address] [place] [address] Performed By: #### L [id number], [id number], 40721-5 ####[facility]ATORYCLIA [id number] [address] [place] BRAIN WO IVCONon 07-24-19 CT BRAIN WO IVCON Normal [facility] Cell count panel (CSF)on Clarity (CSF) Clear Normal Clear [facility] Comment on above: Order Comment: Speci men Type: CEREBROSPINAL FLUIDOrdering Facility: [facility] Address: [address] [place] [address] Performed By: #### L [id number], [id number], 16960-1 ####[facility]ORYCLIA [id number] [address] Clarity (Unsp spec) Not Indicated Normal Clear [facility] Comment on above: Order Comment: Speci men Type: CEREBROSPINAL FLUIDOrdering Facility: [facility] Address: [address] [place] [address] Performed By: #### L [id number], [id number], 43752-0 ####[facility]ORYCLIA [id number] [address] Color (CSF) Colorless Normal Colorless [facility] Comment on above: Order Comment: Speci men Type: CEREBROSPINAL FLUIDOrdering Facility: [facility] Address: [address] [place] [address] Performed By: #### L [id number], [id number], 30328-2 ####[facility]ORYCLIA [id number] [address] Color (Spun CSF) Not Indicated Normal Colorless [facility] Comment on above: Order Comment: Speci men Type: CEREBROSPINAL FLUIDOrdering Facility: [facility] Address: [address] [place] [address] Performed By: #### L [id number], [id number], 71841-1 ####[facility]ORYCLIA [id number] [address] CSF TUBE [employer] Normal [facility] Comment on above: Order Comment: Speci men Type: CEREBROSPINAL FLUIDOrdering Facility: [facility] Address: [address] [place] [address] Performed By: #### L [id number], [id number], 94891-0 ####[facility]ATORYCLIA [id number] [address] [facility] RBC Manual cnt (CSF) [#/Vol] 7 cells/uL High 0-5 [facility] Comment on above: Order Comment: Speci men Type: CEREBROSPINAL FLUIDOrdering Facility: [facility] Address: [address] [place] [address] Performed By: #### L [id number], [id number], 89610-5 ####[facility]ATORYCLIA [id number] [address] WBC Manual cnt (CSF) [#/Vol] 193 cells/uL High 0-5 [facility] Comment on above: Order Comment: Speci men Type: CEREBROSPINAL FLUIDOrdering Facility: [facility] Address: [address] [place] [address] Performed By: #### L [id number], [id number], 44225-3 ####[facility]ATORYCLIA [id number] [address] [place] Glucose CSF-ncon 2 Glucose (CSF) [Mass/Vol] 81 mg/dL High 40-70 [facility] Comment on above: Order Comment: Speci men Type: CEREBROSPINAL FLUIDOrdering Facility: [facility] Address: [address] [place] [address] Result Comment: Lumb ar CSF glucose values of healthy patients are approximately 60% of the plasma values and must always be compared with a concurrently measured plasma value for adequate clinical interpretation.References: 1. Glucose HK (GLUC3) [package insert V 12.0 Haitian]. [employer], [place], [place]. September 2015. 2. Michelle Moore, Loki, H. (2015). Chapter 7: Glucose and Lactate. Marianela Rothman.(eds.), Cerebrospinal Fluid in Clinical Neurology. [employer]: [employer]. Performed By: #### 2 342-4, 2880-3 ####[facility]ATORYCLIA [id number] [address] [place] NURSING PROGon 07-23-2021 NURSING PROG Normal [facility] NURSING PROG Normal [facility] Prot CSF-mCncon 07-23-2021 Protein (CSF) [Mass/Vol] 68 mg/dL High 15-45 [facility] Comment on above: Order Comment: Speci men Type: CEREBROSPINAL FLUIDOrdering Facility: [facility] Address: [address] [place] [address] Performed By: #### 2 342-4, 2880-3 ####[facility]ATORYCLIA [id number] [address] Urinalysis complete panel (U )on 07-23-2021 Bilirubin Ql (U) Negative Normal Negative [facility] Comment on above: Order Comment: Speci men Type: URINE SPECIMENOrdering Facility: [facility] Address: [address] [place] [address] Performed By: #### 2 4356-8 ####[facility]ORATORYCLIA [id number] [address] [place] Clarity (Unsp spec) Clear Normal Clear [facility] Comment on above: Order Comment: Speci men Type: URINE SPECIMENOrdering Facility: [facility] Address: [address] [place] [address] Performed By: #### 2 4356-8 ####[facility]ATORYCLIA [id number] [address] [place] Color (U) Light Yellow Normal yellow [facility] Comment on above: Order Comment: Speci men Type: URINE SPECIMENOrdering Facility: [facility] Address: [address] [place] [address] Performed By: #### 2 4356-8 ####[facility]ATORYCLIA [id number] [address] [place] Glucose Test strip (U) [Mass/Vol] Negative Normal Negative [facility] Comment on above: Order Comment: Speci men Type: URINE SPECIMENOrdering Facility: [facility] Address: [address] [place] [address] Performed By: #### 2 4356-8 ####[facility]ATORYCLIA [id number] [address] Hemoglobin Ql (U) Negative Normal Negative [facility] Comment on above: Order Comment: Speci men Type: URINE SPECIMENOrdering Facility: [facility] Address: [address] [place] [address] Performed By: #### 2 4356-8 ####[facility]ORATORYCLIA [id number] [address] [place] Ketones Ql (U) Negative Normal Negative [facility] Comment on above: Order Comment: Speci men Type: URINE SPECIMENOrdering Facility: [facility] Address: [address] [place] [address] Performed By: #### 2 4356-8 ####[facility]ORATORYCLIA [id number] [address] [place] Leukocyte esterase Test strip Ql (U) Negative Normal Negative [facility] Comment on above: Order Comment: Speci men Type: URINE SPECIMENOrdering Facility: [facility] Address: [address] [place] [address] Performed By: #### 2 4356-8 ####[facility]ATORYCLIA [id number] [address] [place] Nitrite Ql (U) Negative Normal Negative [facility] Comment on above: Order Comment: Speci men Type: URINE SPECIMENOrdering Facility: [facility] Address: [address] [place] [address] Performed By: #### 2 4356-8 ####[facility]ATORYCLIA [id number] [address] pH (U) 6.0 [pH] Normal 5.0-8.0 [facility] Comment on above: Order Comment: Speci men Type: URINE SPECIMENOrdering Facility: [facility] Address: [address] [place] [address] Performed By: #### 2 4356-8 ####[facility]ATORYCLIA [id number] [address] Protein (U) [Mass/Vol] 1+ Abnormal Negative [facility] Comment on above: Order Comment: Speci men Type: URINE SPECIMENOrdering Facility: [facility] Address: [address] [place] [address] Performed By: #### 2 4356-8 ####[facility]ATORYCLIA [id number] [address] RBC LM.HPF (Urine sed) [#/Area] 0-3 /HPF Normal 0-3 /HPF [facility] Comment on above: Order Comment: Speci men Type: URINE SPECIMENOrdering Facility: [facility] Address: [address] [place] [address] Performed By: #### 2 4356-8 ####[facility]ATORYCLIA [id number] [address] Specific gravity (U) [Rel density] 1.018 Normal 1.005-1.030 [facility] Comment on above: Order Comment: Speci men Type: URINE SPECIMENOrdering Facility: [facility] Address: [address] [place] [address] Performed By: #### 2 4356-8 ####[facility]ATORYCLIA [id number] [address] Urobilinogen Ql (U) Normal Normal Negative [facility] Comment on above: Order Comment: Speci men Type: URINE SPECIMENOrdering Facility: [facility] Address: [address] [place] [address] Performed By: #### 2 4356-8 ####[facility]ATORYCLIA [id number] [address] [place] WBC LM.HPF (Urine sed) [#/Area] 0-5 /HPF Normal 0-5 /HPF [facility] Comment on above: Order Comment: Speci men Type: URINE SPECIMENOrdering Facility: [facility] Address: [address] [place] [address] Performed By: #### 2 4356-8 ####[facility]NACLIA [id number] [address] Vancomycin random [Mass/Vol] on 07-23-2021 Vancomycin [Mass/Vol] 12.9 ug/mL Normal 10.0-20.0 [facility] Comment on above: Order Comment: Speci men Type: BLOOD SPECIMENOrdering Facility: [facility] Address: [address] [place] [address] Result Comment: Refe rence ranges and high/low indicator flags are provided as general guidelines only. The treating physician must determine appropriate target levels/dosing based on the specific clinical situation. Performed By: #### 4 091-5 ####[facility]CLIA [id number] [address] OF [facility] XR CHEST 1V FRONTALon 2021 XR CHEST 1V FRONTAL Normal [facility] XR CHEST 1V FRONTAL Normal [facility] aPTT PPPon 07-23-2021 aPTT Coag (PPP) [Time] 32.3 s Normal 23.0-32.4 [facility] Comment on above: Order Comment: Speci men Type: BLOOD SPECIMENOrdering Facility: [facility] Address: [address] [address] Performed By: #### 1 4979-9 ####[facility]ORATORYCLIA [id number] [address] aPTT Coag (PPP) [Time] 57.9 s High 23.0-32.4 [facility] Comment on above: Order Comment: Speci men Type: BLOOD SPECIMENOrdering Facility: [facility] Address: [address] [address] Performed By: #### 1 4979-9 ####[facility]ORATORYCLIA [id number] [place] [address] [place] aPTT Coag (PPP) [Time] 46.3 s High 23.0-32.4 [facility] Comment on above: Order Comment: Speci men Type: BLOOD SPECIMENOrdering Facility: [facility] Address: [address] [place] [address] Performed By: #### 1 4979-9 ####[facility]ORATORYCLIA [id number] [place] [address] [place] Basic metabolic 2000 panelon 07-22-2021 Anion gap [Moles/Vol] 8 mmol/L Low -18 [facility] Comment on above: Order Comment: Speci men Type: BLOOD SPECIMENOrdering Facility: [facility] Address: [address] [place] [address] Performed By: #### 2 4321-2 ####[facility]ORATORYCLIA [id number] [place] [address] [place] Calcium [Mass/Vol] 9.5 mg/dL Normal 8.5-10.2 [facility] Comment on above: Order Comment: Speci men Type: BLOOD SPECIMENOrdering Facility: [facility] Address: [address] [place] [address] Performed By: #### 2 4321-2 ####[facility]ORATORYCLIA [id number] [address] [place] Chloride [Moles/Vol] 105 mmol/L Normal 97-105 [facility] Comment on above: Order Comment: Speci men Type: BLOOD SPECIMENOrdering Facility: [facility] Address: [address] [place] [address] Performed By: #### 2 4321-2 ####[facility]ATORYCLIA [id number] [place] [address] [place] CO2 [Moles/Vol] 32 mmol/L High 22-30 [facility] Comment on above: Order Comment: Speci men Type: BLOOD SPECIMENOrdering Facility: [facility] Address: [address] [place] [address] Performed By: #### 2 4321-2 ####[facility]ORATORYCLIA [id number] [address] [place] [facility] Creatinine [Mass/Vol] 0.75 mg/dL Normal 0.73-1.22 [facility] Comment on above: Order Comment: Shira francia Type: BLOOD SPECIMENOrdering Facility: [facility] Address: [address] [place] [address] Performed By: #### 2 4321-2 ####[facility]ATORYCLIA [id number] [address] ESTIMATED GLOMERULAR FILTRATION RATE 98 mL/min/1.73m??? Normal >=60 [facility] Comment on above: Order Comment: Shira feldman Type: BLOOD SPECIMENOrdering Facility: [facility] Address: [address] [place] [address] Result Comment: Luzmaria mated Glomerular Filtration Rate [...] actual GFR. Performed By: #### 2 4321-2 ####[facility]ATORYCLIA [id number] [address] [facility] Glucose [Mass/Vol] 128 mg/dL High 74-99 [facility] Comment on above: Order Comment: Shira francia Type: BLOOD SPECIMENOrdering Facility: [facility] Address: [address] [place] [address] Result Comment: The [place] [employer] (ADA) provides guidance for cutoff [...] Standards of Medical Care in Diabetes 2016, [place] [employer]. Diabetes Care. 2016.39(Suppl 1). Performed By: #### 2 4321-2 ####[facility]ORATORYCLIA [id number] [address] STATES OF [facility] Potassium [Moles/Vol] 3.7 mmol/L Normal 3.7-5.1 [facility] Comment on above: Order Comment: Speci men Type: BLOOD SPECIMENOrdering Facility: [facility] Address: [address] [place] [address] Performed By: #### 2 4321-2 ####[facility]ATORYCLIA [id number] [address] Sodium [Moles/Vol] 145 mmol/L High 136-144 [facility] Comment on above: Order Comment: Shira feldman Type: BLOOD SPECIMENOrdering Facility: [facility] Address: [address] [place] [address] Performed By: #### 2 4321-2 ####[facility]ATORYCLIA [id number] [address] [place] [facility] Urea nitrogen [Mass/Vol] 39 mg/dL High 9-24 [facility] Comment on above: Order Comment: Shira feldman Type: BLOOD SPECIMENOrdering Facility: [facility] Address: [address] [place] [address] Performed By: #### 2 4321-2 ####[facility]ORATORYCLIA [id number] [address] [place] CASE MANAGEMon 07-22-2021 CASE MANAGEM Normal [facility] CBC W Auto Differential pane l (Bld)on 07-22-2021 Basophils (Bld) [#/Vol] 0.06 10*3/uL Normal <0.11 [facility] Comment on above: Order Comment: Johni men Type: BLOOD SPECIMENOrdering Facility: [facility] Address: [address] [place] [address] Performed By: #### 5 7021-8 ####[facility]ATORYCLIA [id number] [address] Basophils/100 WBC (Bld) 0.5 % Normal [facility] Comment on above: Order Comment: Speci men Type: BLOOD SPECIMENOrdering Facility: [facility] Address: [address] [place] [address] Performed By: #### 5 7021-8 ####[facility]ATORYCLIA [id number] [address] [place] Differential cell count method Nom (Bld) Auto Normal [facility] Comment on above: Order Comment: Speci men Type: BLOOD SPECIMENOrdering Facility: [facility] Address: [address] [place] [address] Performed By: #### 5 7021-8 ####[facility]ATORYCLIA [id number] [address] [place] Eosinophils (Bld) [#/Vol] 0.44 10*3/uL Normal <0.46 [facility] Comment on above: Order Comment: Speci men Type: BLOOD SPECIMENOrdering Facility: [facility] Address: [address] [place] [address] Performed By: #### 5 7021-8 ####[facility]ATORYCLIA [id number] [address] [place] Eosinophils/100 WBC (Bld) 3.9 % Normal [facility] Comment on above: Order Comment: Speci men Type: BLOOD SPECIMENOrdering Facility: [facility] Address: [address] [place] [address] Performed By: #### 5 7021-8 ####[facility]ATORYCLIA [id number] [address] [place] Erythrocyte distribution width (RBC) [Ratio] 17.0 % High 11.5-15.0 [facility] Comment on above: Order Comment: Speci men Type: BLOOD SPECIMENOrdering Facility: [facility] Address: [address] [place] [address] Performed By: #### 5 7021-8 ####[facility]ORATORYCLIA [id number] [address] Hematocrit (Bld) [Volume fraction] 32.0 % Low 39.0-51.0 [facility] Comment on above: Order Comment: Speci men Type: BLOOD SPECIMENOrdering Facility: [facility] Address: [address] [place] [address] Performed By: #### 5 7021-8 ####[facility]ATORYCLIA [id number] [address] Hemoglobin (Bld) [Mass/Vol] 9.3 g/dL Low 13.0-17.0 [facility] Comment on above: Order Comment: Speci men Type: BLOOD SPECIMENOrdering Facility: [facility] Address: [address] [place] [address] Performed By: #### 5 7021-8 ####[facility]ATORYCLIA [id number] [address] IMMATURE GRAN % 0.5 % Normal [facility] Comment on above: Order Comment: Speci men Type: BLOOD SPECIMENOrdering Facility: [facility] Address: [address] [place] [address] Performed By: #### 5 7021-8 ####[facility]ATORYCLIA [id number] [address] IMMATURE GRAN ABS 0.06 k/uL Normal <0.10 [facility] Comment on above: Order Comment: Speci men Type: BLOOD SPECIMENOrdering Facility: [facility] Address: [address] [place] [address] Performed By: #### 5 7021-8 ####[facility]ATORYCLIA [id number] [address] Lymphocytes (Bld) [#/Vol] 1.83 10*3/uL Normal 1.00-4.00 [facility] Comment on above: Order Comment: Speci men Type: BLOOD SPECIMENOrdering Facility: [facility] Address: [address] [place] [address] Performed By: #### 5 7021-8 ####[facility]ATORYCLIA [id number] [address] Lymphocytes/100 WBC (Bld) 16.1 % Normal [facility] Comment on above: Order Comment: Speci men Type: BLOOD SPECIMENOrdering Facility: [facility] Address: [address] [place] [address] Performed By: #### 5 7021-8 ####[facility]ATORYCLIA [id number] [address] STATES OF [facility] MCH (RBC) [Entitic mass] 27.0 pg Normal 26.0-34.0 [facility] Comment on above: Order Comment: Speci men Type: BLOOD SPECIMENOrdering Facility: [facility] Address: [address] [place] [address] Performed By: #### 5 7021-8 ####[facility]ATORYCLIA [id number] [address] [place] [facility] MCHC (RBC) [Mass/Vol] 29.1 g/dL Low 30.5-36.0 [facility] Comment on above: Order Comment: Speci men Type: BLOOD SPECIMENOrdering Facility: [facility] Address: [address] [place] [address] Performed By: #### 5 7021-8 ####[facility]ATORYCLIA [id number] [address] [place] [facility] MCV (RBC) [Entitic vol] 92.8 fL Normal 80.0-100.0 [facility] Comment on above: Order Comment: Speci men Type: BLOOD SPECIMENOrdering Facility: [facility] Address: [address] [place] [address] Performed By: #### 5 7021-8 ####[facility]ATORYCLIA [id number] [place] [address] [place] Monocytes (Bld) [#/Vol] 0.87 10*3/uL High <0.87 [facility] Comment on above: Order Comment: Speci men Type: BLOOD SPECIMENOrdering Facility: [facility] Address: [address] [place] [address] Performed By: #### 5 7021-8 ####[facility]ATORYCLIA [id number] [address] [place] Monocytes/100 WBC (Bld) 7.6 % Normal [facility] Comment on above: Order Comment: Speci men Type: BLOOD SPECIMENOrdering Facility: [facility] Address: [address] [place] [address] Performed By: #### 5 7021-8 ####[facility]ATORYCLIA [id number] [address] [place] Neutrophils (Bld) [#/Vol] 8.12 10*3/uL High 1.45-7.50 [facility] Comment on above: Order Comment: Speci men Type: BLOOD SPECIMENOrdering Facility: [facility] Address: [address] [place] [address] Performed By: #### 5 7021-8 ####[facility]ATORYCLIA [id number] [address] [place] Neutrophils/100 WBC (Bld) 71.4 % Normal [facility] Comment on above: Order Comment: Speci men Type: BLOOD SPECIMENOrdering Facility: [facility] Address: [address] [place] [address] Performed By: #### 5 7021-8 ####[facility]ATORYCLIA [id number] [address] [place] Nucleated RBC (Bld) [#/Vol] 10*3/uL Normal <0.01 [facility] Comment on above: Order Comment: Speci men Type: BLOOD SPECIMENOrdering Facility: [facility] Address: [address] [address] Performed By: #### 5 7021-8 ####[facility]ATORYCLIA [id number] [address] [place] Nucleated RBC/100 WBC (Bld) [Ratio] 0.0 /100 WBC Normal [facility] Comment on above: Order Comment: Speci men Type: BLOOD SPECIMENOrdering Facility: [facility] Address: [address] [place] [address] Performed By: #### 5 7021-8 ####[facility]ATORYCLIA [id number] [place] [address] [place] Platelet mean volume (Bld) [Entitic vol] 10.8 fL Normal 9.0-12.7 [facility] Comment on above: Order Comment: Speci men Type: BLOOD SPECIMENOrdering Facility: [facility] Address: [address] [place] [address] Performed By: #### 5 7021-8 ####[facility]ATORYCLIA [id number] [address] [place] Platelets (Bld) [#/Vol] 362 10*3/uL Normal 150-400 [facility] Comment on above: Order Comment: Speci men Type: BLOOD SPECIMENOrdering Facility: [facility] Address: [address] [place] [address] Performed By: #### 5 7021-8 ####[facility]ATORYCLIA [id number] [address] [place] RBC (Bld) [#/Vol] 3.45 10*6/uL Low 4.20-6.00 [facility] Comment on above: Order Comment: Speci men Type: BLOOD SPECIMENOrdering Facility: [facility] Address: [address] [place] [address] Performed By: #### 5 7021-8 ####[facility]ATORYCLIA [id number] [address] [place] WBC (Bld) [#/Vol] 11.38 10*3/uL High 3.70-11.00 [facility] Comment on above: Order Comment: Speci men Type: BLOOD SPECIMENOrdering Facility: [facility] Address: [address] [place] [address] Performed By: #### 5 7021-8 ####[facility]ATORYCLIA [id number] [address] Magnesium SerPl-mCncon 07-22 Magnesium [Mass/Vol] 2.3 mg/dL Normal 1.7-2.3 [facility] Comment on above: Order Comment: Speci men Type: BLOOD SPECIMENOrdering Facility: [facility] Address: [address] [place] [address] Performed By: #### 1 9123-9, 2777-1, 28315-6 ####[facility]ATORYCLIA [id number] [address] [facility] Natriuretic peptide.B prohormone N-Terminal [Mass/Vol] 328 pg/mL High <125 [facility] Comment on above: Order Comment: Speci men Type: BLOOD SPECIMENOrdering Facility: [facility] Address: [address] [place] [address] Performed By: #### 1 9123-9, 2777-1, 53023-6 ####[facility]ATORYCLIA [id number] [address] [place] NURSING PROGon 07-22-2021 NURSING PROG Normal [facility] NUTRITIONon 07-22-2021 NUTRITION Normal [facility] Phosphate SerPl-mCncon 07-22 Phosphate [Mass/Vol] 3.5 mg/dL Normal 2.7-4.8 [facility] Comment on above: Order Comment: Speci men Type: BLOOD SPECIMENOrdering Facility: [facility] Address: [address] [place] [address] Performed By: #### 1 9123-9, 2777-1, 98009-4 ####[facility]ATORYCLIA [id number] [address] [facility] THERAPY NTon 07-22-2021 THERAPY NT Normal [facility] THERAPY NT Normal [facility] aPTT PPPon 07-22-2021 aPTT Coag (PPP) [Time] 50.1 s High 23.0-32.4 [facility] Comment on above: Order Comment: Speci men Type: BLOOD SPECIMENOrdering Facility: [facility] Address: [address] [place] [address] Performed By: #### 1 4979-9 ####[facility]ATORYCLIA [id number] [address] [place] ALLIED HEALTHon 07-21-2021 ALLIED HEALTH Normal [facility] Bacteria Spec Resp Culton Bacteria identified Respiratory culture Nom (Unsp spec) Abnormal [facility] Comment on above: Performed By: #### 3 2355-0 ####[facility]ATORYCLIA [id number] [address] [place] Basic metabolic 2000 panelon 07-21-2021 Anion gap [Moles/Vol] 9 mmol/L Normal - [facility] Comment on above: Order Comment: Speci men Type: BLOOD SPECIMENOrdering Facility: [facility] Address: [address] [place] [address] Performed By: #### 1 9123-9, 2777-1, 44309-6 ####[facility]ATORYCLIA [id number] [address] [place] [facility] Calcium [Mass/Vol] 9.9 mg/dL Normal 8.5-10.2 [facility] Comment on above: Order Comment: Speci men Type: BLOOD SPECIMENOrdering Facility: [facility] Address: [address] [address] Performed By: #### 1 9123-9, 2777-1, 32236-1 ####[facility]ATORYCLIA [id number] [address] [facility] Chloride [Moles/Vol] 103 mmol/L Normal 97-105 [facility] Comment on above: Order Comment: Speci men Type: BLOOD SPECIMENOrdering Facility: [facility] Address: [address] [place] [address] Performed By: #### 1 9123-9, 2777-1, 66831-8 ####[facility]ATORYCLIA [id number] [address] [facility] CO2 [Moles/Vol] 33 mmol/L High 22-30 [facility] Comment on above: Order Comment: Speci men Type: BLOOD SPECIMENOrdering Facility: [facility] Address: [address] [place] [address] Performed By: #### 1 9123-9, 2777-1, 51830-9 ####[facility] CENTERIA [id number] [address] Creatinine [Mass/Vol] 0.80 mg/dL Normal 0.73-1.22 [facility] Comment on above: Order Comment: Speci men Type: BLOOD SPECIMENOrdering Facility: [facility] Address: [address] [place] [address] Performed By: #### 1 9123-9, 2777-1, 13887-4 ####[facility]ORATORYCLIA [id number] [address] ESTIMATED GLOMERULAR FILTRATION RATE 96 mL/min/1.73m??? Normal >=60 [facility] Comment on above: Order Comment: Speci men Type: BLOOD SPECIMENOrdering Facility: [facility] Address: [address] [place] [address] Result Comment: Luzmaria mated Glomerular Filtration Rate [...] GFR. Performed By: #### 1 9123-9, 2777-1, 23563-4 ####[facility]ORATORYCLIA [id number] [place] [address] [place] Glucose [Mass/Vol] 148 mg/dL High 74-99 [facility] Comment on above: Order Comment: Shira feldman Type: BLOOD SPECIMENOrdering Facility: [facility] Address: [address] [place], [place] [id number] Result Comment: The [place] [employer] (ADA) provides guidance for cutoff [...] Standards of Medical Care in Diabetes 2016, [place] [employer]. Diabetes Care. 2016.39(Suppl 1). Performed By: #### 1 9123-9, 2777-, 49907-2 ####[facility]CLIA [id number] [place] [address] [place] Potassium [Moles/Vol] 4.1 mmol/L Normal 3.7-5.1 [facility] Comment on above: Order Comment: Sihra feldman Type: BLOOD SPECIMENOrdering Facility: [facility] Address: [address] [id number] Performed By: #### 1 9123-9, 2777-1, 41376-9 ####[facility] LABORATORYIA [id number] [place] [address] [place] Sodium [Moles/Vol] 145 mmol/L High 136-144 [facility] Comment on above: Order Comment: Shira feldman Type: BLOOD SPECIMENOrdering Facility: [facility] Address: [address] [phone] Performed By: #### 1 9123-9, 2777-1, 03799-9 ####[facility]ORATORYCLIA [id number] [address] [place] [facility] Urea nitrogen [Mass/Vol] 40 mg/dL High 9-24 [facility] Comment on above: Order Comment: Speci men Type: BLOOD SPECIMENOrdering Facility: [facility] Address: [address] [place] [address] Performed By: #### 1 9123-9, 2777-, 73214-6 ####[facility]ATORYCLIA [id number] [address] CBC W Auto Differential pane l (Bld)on 07-21-2021 Basophils (Bld) [#/Vol] 0.06 10*3/uL Normal <0.11 [facility] Comment on above: Order Comment: Speci men Type: BLOOD SPECIMENOrdering Facility: [facility] Address: [address] [place] [address] Performed By: #### 5 7021-8 ####[facility]ORATORYCLIA [id number] [address] [place] [facility] Basophils/100 WBC (Bld) 0.4 % Normal [facility] Comment on above: Order Comment: Speci men Type: BLOOD SPECIMENOrdering Facility: [facility] Address: [address] [place] [address] Performed By: #### 5 7021-8 ####[facility]ORATORYCLIA [id number] [address] Differential cell count method Nom (Bld) Auto Normal [facility] Comment on above: Order Comment: Speci men Type: BLOOD SPECIMENOrdering Facility: [facility] Address: [address] [place] [address] Performed By: #### 5 7021-8 ####[facility] [facility]ORATORYCLIA [id number] [place] [address] [place] Eosinophils (Bld) [#/Vol] 0.04 10*3/uL Normal <0.46 [facility] Comment on above: Order Comment: Speci men Type: BLOOD SPECIMENOrdering Facility: [facility] Address: [address] [place] [address] Performed By: #### 5 7021-8 ####[facility]ORATORYCLIA [id number] [address] Eosinophils/100 WBC (Bld) 0.3 % Normal [facility] Comment on above: Order Comment: Speci men Type: BLOOD SPECIMENOrdering Facility: [facility] Address: [address] [place] [address] Performed By: #### 5 7021-8 ####[facility] LABORATORYCLIA [id number] [address] [place] OF [facility] Erythrocyte distribution width (RBC) [Ratio] 17.0 % High 11.5-15.0 [facility] Comment on above: Order Comment: Speci men Type: BLOOD SPECIMENOrdering Facility: [facility] Address: [address] [place] [address] Performed By: #### 5 7021-8 ####[facility] LABORATORYCLIA [id number] [address] Hematocrit (Bld) [Volume fraction] 33.1 % Low 39.0-51.0 [facility] Comment on above: Order Comment: Speci men Type: BLOOD SPECIMENOrdering Facility: [facility] Address: [address] [place] [address] Performed By: #### 5 7021-8 ####[facility] LABORATORYCLIA [id number] [address] [place] Hemoglobin (Bld) [Mass/Vol] 9.7 g/dL Low 13.0-17.0 [facility] Comment on above: Order Comment: Speci men Type: BLOOD SPECIMENOrdering Facility: [facility] Address: [address] [place] [address] Performed By: #### 5 7021-8 ####[facility]ATORYCLIA [id number] [address] IMMATURE GRAN % 0.5 % Normal [facility] Comment on above: Order Comment: Speci men Type: BLOOD SPECIMENOrdering Facility: [facility] Address: [address] [place] [address] Performed By: #### 5 7021-8 ####[facility] LABORATORYCLIA [id number] [address] IMMATURE GRAN ABS 0.07 k/uL Normal <0.10 [facility] Comment on above: Order Comment: Speci men Type: BLOOD SPECIMENOrdering Facility: [facility] Address: [address] [place] [address] Performed By: #### 5 7021-8 ####[facility] LABORATORYCLIA [id number] [address] Lymphocytes (Bld) [#/Vol] 1.99 10*3/uL Normal 1.00-4.00 [facility] Comment on above: Order Comment: Speci men Type: BLOOD SPECIMENOrdering Facility: [facility] Address: [address] [place] [address] Performed By: #### 5 7021-8 ####[facility] LABORATORYCLIA [id number] [address] Lymphocytes/100 WBC (Bld) 13.4 % Normal [facility] Comment on above: Order Comment: Speci men Type: BLOOD SPECIMENOrdering Facility: [facility] Address: [address] [place] [address] Performed By: #### 5 7021-8 ####[facility] LABORATORYCLIA [id number] [address] [place] [facility] MCH (RBC) [Entitic mass] 27.2 pg Normal 26.0-34.0 [facility] Comment on above: Order Comment: Speci men Type: BLOOD SPECIMENOrdering Facility: [facility] Address: [address] [place] [address] Performed By: #### 5 7021-8 ####[facility] LABORATORYCLIA [id number] [address] [place] OF [facility] MCHC (RBC) [Mass/Vol] 29.3 g/dL Low 30.5-36.0 [facility] Comment on above: Order Comment: Speci men Type: BLOOD SPECIMENOrdering Facility: [facility] Address: [address] [place] [address] Performed By: #### 5 7021-8 ####[facility] LABORATORYCLIA [id number] [address] [place] MCV (RBC) [Entitic vol] 92.7 fL Normal 80.0-100.0 [facility] Comment on above: Order Comment: Speci men Type: BLOOD SPECIMENOrdering Facility: [facility] Address: [address] [place] [address] Performed By: #### 5 7021-8 ####[facility] LABORATORYCLIA [id number] [address] [place] Monocytes (Bld) [#/Vol] 1.10 10*3/uL High <0.87 [facility] Comment on above: Order Comment: Speci men Type: BLOOD SPECIMENOrdering Facility: [facility] Address: [address] [place] [address] Performed By: #### 5 7021-8 ####[facility] LABORATORYCLIA [id number] [address] Monocytes/100 WBC (Bld) 7.4 % Normal [facility] Comment on above: Order Comment: Speci men Type: BLOOD SPECIMENOrdering Facility: [facility] Address: [address] [place] [address] Performed By: #### 5 7021-8 ####[facility] LABORATORYCLIA [id number] [address] [place] Neutrophils (Bld) [#/Vol] 11.61 10*3/uL High 1.45-7.50 [facility] Comment on above: Order Comment: Speci men Type: BLOOD SPECIMENOrdering Facility: [facility] Address: [address] [place] [address] Performed By: #### 5 7021-8 ####[facility] LABORATORYCLIA [id number] [address] Neutrophils/100 WBC (Bld) 78.0 % Normal [facility] Comment on above: Order Comment: Speci men Type: BLOOD SPECIMENOrdering Facility: [facility] Address: [address] [place] [address] Performed By: #### 5 7021-8 ####[facility]ORATORYCLIA [id number] [address] Nucleated RBC (Bld) [#/Vol] 10*3/uL Normal <0.01 [facility] Comment on above: Order Comment: Speci men Type: BLOOD SPECIMENOrdering Facility: [facility] Address: [address] [place] [address] Performed By: #### 5 7021-8 ####[facility] LABORATORYCLIA [id number] [address] Nucleated RBC/100 WBC (Bld) [Ratio] 0.0 /100 WBC Normal [facility] Comment on above: Order Comment: Speci men Type: BLOOD SPECIMENOrdering Facility: [facility] Address: [address] [place] [address] Performed By: #### 5 7021-8 ####[facility] LABORATORYCLIA [id number] [address] [place] Platelet mean volume (Bld) [Entitic vol] 10.4 fL Normal 9.0-12.7 [facility] Comment on above: Order Comment: Speci men Type: BLOOD SPECIMENOrdering Facility: [facility] Address: [address] [place] [address] Performed By: #### 5 7021-8 ####[facility]ORATORYCLIA [id number] [address] [place] Platelets (Bld) [#/Vol] 396 10*3/uL Normal 150-400 [facility] Comment on above: Order Comment: Speci men Type: BLOOD SPECIMENOrdering Facility: [facility] Address: [address] [place] [address] Performed By: #### 5 7021-8 ####[facility] LABORATORYCLIA [id number] [place] [address] [place] RBC (Bld) [#/Vol] 3.57 10*6/uL Low 4.20-6.00 [facility] Comment on above: Order Comment: Speci men Type: BLOOD SPECIMENOrdering Facility: [facility] Address: [address] [place] [address] Performed By: #### 5 7021-8 ####[facility]ORATORYCLIA [id number] [address] [place] WBC (Bld) [#/Vol] 14.87 10*3/uL High 3.70-11.00 [facility] Comment on above: Order Comment: Speci men Type: BLOOD SPECIMENOrdering Facility: [facility] Address: [address] [place] [address] Performed By: #### 5 7021-8 ####[facility]ORATORYCLIA [id number] [address] OF [facility] Gas and Carbon monoxide pane l (BldV)on 07-21-2021 Base excess Calc (BldV) [Moles/Vol] 7 mmol/L High 0-2 [facility] Comment on above: Order Comment: Speci men Type: VENOUS BLOOD SPECIMENOrdering Facility: [facility] Address: [address] [place] [address] Performed By: #### 2 4344-4 ####[facility]ORATORYCLIA [id number] [address] OF [facility] Body temperature 98.6 [degF] Normal [facility] Comment on above: Order Comment: Speci men Type: VENOUS BLOOD SPECIMENOrdering Facility: [facility] Address: [address] [place] [address] Performed By: #### 2 4344-4 ####[facility]ORATORYCLIA [id number] [address] CALCIUM IONIZED, PH CORRECTED 1.21 mmol/L Normal 1.08-1.30 [facility] Comment on above: Order Comment: Speci men Type: VENOUS BLOOD SPECIMENOrdering Facility: [facility] Address: [address] [place] [address] Performed By: #### 2 4344-4 ####[facility]ORATORYCLIA [id number] [address] [place] Calcium.ionized (BldV) [Mass/Vol] 1.23 mmol/L Normal 1.08-1.30 [facility] Comment on above: Order Comment: Speci men Type: VENOUS BLOOD SPECIMENOrdering Facility: [facility] Address: [address] [place] [address] Performed By: #### 2 4344-4 ####[facility]ORATORYCLIA [id number] [address] OF [place] Carboxyhemoglobin (BldV) [Mass fraction] 2.3 % High 0.0-2.0 [facility] Comment on above: Order Comment: Speci men Type: VENOUS BLOOD SPECIMENOrdering Facility: [facility] Address: [address] [place] [address] Result Comment: Carb oxyhemoglobin Reference Range for Smokers: 2.0-8.0% Performed By: #### 2 4344-4 ####[facility]ORATORYCLIA [id number] [address] [place] CO2 (BldV) [Partial pressure] 58 mm[Hg] High 42-55 [facility] Comment on above: Order Comment: Speci men Type: VENOUS BLOOD SPECIMENOrdering Facility: [facility] Address: [address] [place] [address] Performed By: #### 2 4344-4 ####[facility]ORATORYCLIA [id number] [place] [address] [place] CO2 [Moles/Vol] 31 mmol/L High 25-29 [facility] Comment on above: Order Comment: Speci men Type: VENOUS BLOOD SPECIMENOrdering Facility: [facility] Address: [address] [place] [address] Performed By: #### 2 4344-4 ####[facility]ORATORYCLIA [id number] [place] [address] [place] Glucose [Mass/Vol] 146 mg/dL High 60-105 [facility] Comment on above: Order Comment: Speci men Type: VENOUS BLOOD SPECIMENOrdering Facility: [facility] Address: [address] [place] [address] Performed By: #### 2 4344-4 ####[facility]ORATORYCLIA [id number] [place] [address] [place] HCO3 (Bld) [Moles/Vol] 33 mmol/L High 24-28 [facility] Comment on above: Order Comment: Speci men Type: VENOUS BLOOD SPECIMENOrdering Facility: [facility] Address: [address] [place] [address] Performed By: #### 2 4344-4 ####[facility]ORATORYCLIA [id number] [place] [address] [place] Hematocrit (Bld) [Volume fraction] 30.1 % Low 39.0-51.0 [facility] Comment on above: Order Comment: Speci men Type: VENOUS BLOOD SPECIMENOrdering Facility: [facility] Address: [address] [place] [address] Performed By: #### 2 4344-4 ####[facility] LABORATORYCLIA [id number] [address] [place] Hemoglobin (Bld) [Mass/Vol] 9.7 g/dL Low 13.0-17.0 [facility] Comment on above: Order Comment: Speci men Type: VENOUS BLOOD SPECIMENOrdering Facility: [facility] Address: [address] [address] Performed By: #### 2 4344-4 ####[facility]ORATORYCLIA [id number] [address] [place] Methemoglobin (Bld) [Mass fraction] % Normal 0.0-1.5 [facility] Comment on above: Order Comment: Speci men Type: VENOUS BLOOD SPECIMENOrdering Facility: [facility] Address: [address] [address] Performed By: #### 2 4344-4 ####[facility]ORATORYCLIA [id number] [address] O2 THERAPY NC = Nasal Cannula Normal [facility] Comment on above: Order Comment: Speci men Type: VENOUS BLOOD SPECIMENOrdering Facility: [facility] Address: [address] [place] [address] Performed By: #### 2 4344-4 ####[facility]ORATORYCLIA [id number] [address] [place] Oxygen (BldV) [Partial pressure] 64 mm[Hg] High 35-45 [facility] Comment on above: Order Comment: Speci men Type: VENOUS BLOOD SPECIMENOrdering Facility: [facility] Address: [address] [place] [address] Performed By: #### 2 4344-4 ####[facility]ORATORYCLIA [id number] [address] [place] Oxygen saturation in Blood 90 % High 60-85 [facility] Comment on above: Order Comment: Speci men Type: VENOUS BLOOD SPECIMENOrdering Facility: [facility] Address: [address] [address] Performed By: #### 2 4344-4 ####[facility]ORATORYCLIA [id number] [address] [place] Oxyhemoglobin (BldV) [Mass fraction] 87 % High 60-85 [facility] Comment on above: Order Comment: Speci men Type: VENOUS BLOOD SPECIMENOrdering Facility: [facility] Address: [address] [address] Performed By: #### 2 4344-4 ####[facility]ORATORYCLIA [id number] [address] [place] pH (BldV) 7.38 [pH] Normal 7.32-7.42 [facility] Comment on above: Order Comment: Speci men Type: VENOUS BLOOD SPECIMENOrdering Facility: [facility] Address: [address] [place] [address] Performed By: #### 2 4344-4 ####[facility]ORATORYCLIA [id number] [address] [place] Potassium [Moles/Vol] 3.8 mmol/L Normal 3.5-5.0 [facility] Comment on above: Order Comment: Speci men Type: VENOUS BLOOD SPECIMENOrdering Facility: [facility] Address: [address] [place] [address] Performed By: #### 2 4344-4 ####[facility]ORATORYCLIA [id number] [address] [place] Sodium [Moles/Vol] 145 mmol/L High 136-144 [facility] Comment on above: Order Comment: Speci men Type: VENOUS BLOOD SPECIMENOrdering Facility: [facility] Address: [address] [address] Performed By: #### 2 4344-4 ####[facility]ORATORYCLIA [id number] [place] [address] [place] Base excess Calc (BldV) [Moles/Vol] 8 mmol/L High 0-2 [facility] Comment on above: Order Comment: Speci men Type: VENOUS BLOOD SPECIMENOrdering Facility: [facility] Address: [address] [place] [address] Performed By: #### 2 4344-4 ####[facility]ORATORYCLIA [id number] [address] Body temperature 100.22 [degF] Normal [facility] Comment on above: Order Comment: Speci men Type: VENOUS BLOOD SPECIMENOrdering Facility: [facility] Address: [address] [place] [address] Performed By: #### 2 4344-4 ####[facility]ORATORYCLIA [id number] [address] STATES OF [facility] CALCIUM IONIZED, PH CORRECTED 1.25 mmol/L Normal 1.08-1.30 [facility] Comment on above: Order Comment: Speci men Type: VENOUS BLOOD SPECIMENOrdering Facility: [facility] Address: [address] [place] [address] Performed By: #### 2 4344-4 ####[facility]ORATORYCLIA [id number] [address] [place] Calcium.ionized (BldV) [Mass/Vol] 1.24 mmol/L Normal 1.08-1.30 [facility] Comment on above: Order Comment: Speci men Type: VENOUS BLOOD SPECIMENOrdering Facility: [facility] Address: [address] [place] [address] Performed By: #### 2 4344-4 ####[facility]ORATORYCLIA [id number] [address] [place] Carboxyhemoglobin (BldV) [Mass fraction] 2.5 % High 0.0-2.0 [facility] Comment on above: Order Comment: Speci men Type: VENOUS BLOOD SPECIMENOrdering Facility: [facility] Address: [address] [place] [address] Result Comment: Carb oxyhemoglobin Reference Range for Smokers: 2.0-8.0% Performed By: #### 2 4344-4 ####[facility]ORATORYCLIA [id number] [address] [place] CO2 (BldV) [Partial pressure] 53 mm[Hg] Normal 42-55 [facility] Comment on above: Order Comment: Speci men Type: VENOUS BLOOD SPECIMENOrdering Facility: [facility] Address: [address] [place] [address] Performed By: #### 2 4344-4 ####[facility]ORATORYCLIA [id number] [address] [place] CO2 [Moles/Vol] 31 mmol/L High 25-29 [facility] Comment on above: Order Comment: Speci men Type: VENOUS BLOOD SPECIMENOrdering Facility: [facility] Address: [address] [place] [address] Performed By: #### 2 4344-4 ####[facility]ORATORYCLIA [id number] [address] [place] CO2 adjusted to patient's actual temperature (BldV) [Partial pressure] 56 mmHg High 42-55 [facility] Comment on above: Order Comment: Speci men Type: VENOUS BLOOD SPECIMENOrdering Facility: [facility] Address: [address] [place] [address] Performed By: #### 2 4344-4 ####[facility]ORATORYCLIA [id number] [place] [address] [place] Glucose [Mass/Vol] 131 mg/dL High 60-105 [facility] Comment on above: Order Comment: Speci men Type: VENOUS BLOOD SPECIMENOrdering Facility: [facility] Address: [address] [place] [address] Performed By: #### 2 4344-4 ####[facility]ORATORYCLIA [id number] [place] [address] [place] HCO3 (Bld) [Moles/Vol] 33 mmol/L High 24-28 [facility] Comment on above: Order Comment: Speci men Type: VENOUS BLOOD SPECIMENOrdering Facility: [facility] Address: [address] [place] [address] Performed By: #### 2 4344-4 ####[facility]ORATORYCLIA [id number] [place] [address] [place] Hematocrit (Bld) [Volume fraction] 30.8 % Low 39.0-51.0 [facility] Comment on above: Order Comment: Speci men Type: VENOUS BLOOD SPECIMENOrdering Facility: [facility] Address: [facility] [place] [address] Performed By: #### 2 4344-4 ####[facility]ORATORYCLIA [id number] [address] OF [facility] Hemoglobin (Bld) [Mass/Vol] 10.0 g/dL Low 13.0-17.0 [facility] Comment on above: Order Comment: Speci men Type: VENOUS BLOOD SPECIMENOrdering Facility: [facility] Address: [address] [place] [address] Performed By: #### 2 4344-4 ####[facility]ORATORYCLIA [id number] [address] [place] Methemoglobin (Bld) [Mass fraction] % Normal 0.0-1.5 [facility] Comment on above: Order Comment: Speci men Type: VENOUS BLOOD SPECIMENOrdering Facility: [facility] Address: [address] [place] [address] Performed By: #### 2 4344-4 ####[facility]ORATORYCLIA [id number] [address] O2 THERAPY NC = Nasal Cannula Normal [facility] Comment on above: Order Comment: Speci men Type: VENOUS BLOOD SPECIMENOrdering Facility: [facility] Address: [address] [place] [address] Performed By: #### 2 4344-4 ####[facility]ORATORYCLIA [id number] [address] Oxygen (BldV) [Partial pressure] 58 mm[Hg] High 35-45 [facility] Comment on above: Order Comment: Speci men Type: VENOUS BLOOD SPECIMENOrdering Facility: [facility] Address: [address] [address] Performed By: #### 2 4344-4 ####[facility]ORATORYCLIA [id number] [address] [place] Oxygen adjusted to patient's actual temperature (BldV) [Partial pressure] 61 mmHg High 35-45 [facility] Comment on above: Order Comment: Speci men Type: VENOUS BLOOD SPECIMENOrdering Facility: [facility] Address: [address] [address] Performed By: #### 2 4344-4 ####[facility]ORATORYCLIA [id number] [address] [place] Oxygen saturation in Blood 88 % High 60-85 [facility] Comment on above: Order Comment: Speci men Type: VENOUS BLOOD SPECIMENOrdering Facility: [facility] Address: [address] [address] Performed By: #### 2 4344-4 ####[facility]ORATORYCLIA [id number] [address] Oxyhemoglobin (BldV) [Mass fraction] 85 % Normal 60-85 [facility] Comment on above: Order Comment: Speci men Type: VENOUS BLOOD SPECIMENOrdering Facility: [facility] Address: [address] [place] [address] Performed By: #### 2 4344-4 ####[facility]ORATORYCLIA [id number] [address] [place] pH (BldV) 7.41 [pH] Normal 7.32-7.42 [facility] Comment on above: Order Comment: Speci men Type: VENOUS BLOOD SPECIMENOrdering Facility: [facility] Address: [address] [address] Performed By: #### 2 4344-4 ####[facility]ORATORYCLIA [id number] [address] [place] [facility] pH adjusted to patient's actual temperature (BldV) 7.40 Normal 7.32-7.42 [facility] Comment on above: Order Comment: Speci men Type: VENOUS BLOOD SPECIMENOrdering Facility: [facility] Address: [address] [place] [address] Performed By: #### 2 4344-4 ####[facility]ORATORYCLIA [id number] [place] [address] [place] Potassium [Moles/Vol] 4.0 mmol/L Normal 3.5-5.0 [facility] Comment on above: Order Comment: Speci men Type: VENOUS BLOOD SPECIMENOrdering Facility: [facility] Address: [address] [place] [address] Performed By: #### 2 4344-4 ####[facility]ORATORYCLIA [id number] [place] [address] [place] Sodium [Moles/Vol] 146 mmol/L High 136-144 [facility] Comment on above: Order Comment: Speci men Type: VENOUS BLOOD SPECIMENOrdering Facility: [facility] Address: [address] [place] [address] Performed By: #### 2 4344-4 ####[facility]ORATORYCLIA [id number] [place] [address] [place] Magnesium SerPl-ncon 07-21 Magnesium [Mass/Vol] 2.5 mg/dL High 1.7-2.3 [facility] Comment on above: Order Comment: Speci men Type: BLOOD SPECIMENOrdering Facility: [facility] Address: [address] [place] [address] Performed By: #### 1 9123-9, 2777-1, 20161-5 ####[facility]ORATORYCLIA [id number] [place] [address] [place] NURSING PROGon 07-21-2021 NURSING PROG Normal [facility] Phosphate SerPl-mCncon 07-21 Phosphate [Mass/Vol] 3.7 mg/dL Normal 2.7-4.8 [facility] Comment on above: Order Comment: Speci men Type: BLOOD SPECIMENOrdering Facility: [facility] Address: [address] [place] [address] Performed By: #### 1 9123-9, 2777-1, 44971-0 ####[facility]ORATORYCLIA [id number] [place] [address] [place] THERAPY NTon 07-21-2021 THERAPY NT Normal [facility] XR CHEST 1V FRONTALon 2021 XR CHEST 1V FRONTAL Normal [facility] aPTT PPPon 07-21-2021 aPTT Coag (PPP) [Time] 53.0 s High 23.0-32.4 [facility] Comment on above: Order Comment: Speci men Type: BLOOD SPECIMENOrdering Facility: [facility] Address: [address] [place] [address] Performed By: #### 1 4979-9 ####[facility]ORATORYCLIA [id number] [address] [place] ALLIED HEALTHon 07-20-2021 ALLIED HEALTH Normal [facility] Basic metabolic 2000 panelon 07-20-2021 Anion gap [Moles/Vol] 8 mmol/L Low 9-18 [facility] Comment on above: Order Comment: Speci men Type: BLOOD SPECIMENOrdering Facility: [facility] Address: [address] [place] [address] Performed By: #### 2 4321-2, , 2776-05 ####[facility]ORATORYCLIA [id number] [place] [address] [place] Calcium [Mass/Vol] 9.7 mg/dL Normal 8.5-10.2 [facility] Comment on above: Order Comment: Speci men Type: BLOOD SPECIMENOrdering Facility: [facility] Address: [address] [place] [address] Performed By: #### 2 4321-2, , 2777 ####[facility]ORATORYCLIA [id number] [place] [address] [place] Chloride [Moles/Vol] 104 mmol/L Normal 97-105 [facility] Comment on above: Order Comment: Speci men Type: BLOOD SPECIMENOrdering Facility: [facility] Address: [address] [place], [place] [address] Performed By: #### 2 4321-2, , 2776-05 ####[facility] [id number] [address] CO2 [Moles/Vol] 34 mmol/L High 22-30 [facility] Comment on above: Order Comment: Speci men Type: BLOOD SPECIMENOrdering Facility: [facility] Address: [address] [place] [address] Performed By: #### 2 4321-2, , 2776-05 ####[facility]CLIA [id number] [address] Creatinine [Mass/Vol] 0.76 mg/dL Normal 0.73-1.22 [facility] Comment on above: Order Comment: Speci men Type: BLOOD SPECIMENOrdering Facility: [facility] Address: [address] [place] [address] Performed By: #### 2 4321-2, , 2776-05 ####[facility]ENTERIA [id number] [address] ESTIMATED GLOMERULAR FILTRATION RATE 97 mL/min/1.73m??? Normal >=60 [facility] Comment on above: Order Comment: Speci men Type: BLOOD SPECIMENOrdering Facility: [facility] Address: [address] [place] [address] Result Comment: Luzmaria mated Glomerular Filtration Rate [...] Performed By: #### 2 4321-2, , 2776-05 ####[facility]ORATORYCLIA [id number] [place] [address] [place] Glucose [Mass/Vol] 123 mg/dL High 74-99 [facility] Comment on above: Order Comment: Shira francia Type: BLOOD SPECIMENOrdering Facility: [facility] Address: [address] [place], [place] [address] Result Comment: The [place] Diabetes [employer] (ADA) provides guidance for cutoff [...] Standards of Medical Care in Diabetes 2016, [place] [employer]. Diabetes Care. 2016.39(Suppl 1). Performed By: #### 2 4321-2, , 2776-05 ####[facility]ATORYCLIA [id number] [place] [address] [place] Potassium [Moles/Vol] 4.4 mmol/L Normal 3.7-5.1 [facility] Comment on above: Order Comment: Shira feldman Type: BLOOD SPECIMENOrdering Facility: [facility] Address: [address] [place], [place] [address] Performed By: #### 2 4321-2, , 2776-05 ####[facility]ATORYCLIA [id number] [place] [address] [place] Sodium [Moles/Vol] 146 mmol/L High 136-144 [facility] Comment on above: Order Comment: Shira feldman Type: BLOOD SPECIMENOrdering Facility: [facility] Address: [address] [place], [place] [address] Performed By: #### 2 4321-2, , 2776-05 ####[facility]ATORYCLIA [id number] [place] [address] [place] Urea nitrogen [Mass/Vol] 38 mg/dL High 9-24 [facility] Comment on above: Order Comment: Speci men Type: BLOOD SPECIMENOrdering Facility: [facility] Address: [address] [place] [address] Performed By: #### 2 4321-2, 43460-2, 2777-1 ####[facility]ATORYCLIA [id number] [address] [place] CASE MANAGEMon 07-20-2021 CASE MANAGEM Normal [facility] CBC W Auto Differential pane l (Bld)on 07-20-2021 Basophils (Bld) [#/Vol] 0.05 10*3/uL Normal <0.11 [facility] Comment on above: Order Comment: Speci men Type: BLOOD SPECIMENOrdering Facility: [facility] Address: [address] [place] [address] Performed By: #### 5 7021-8 ####[facility]ATORYCLIA [id number] [place] [address] [place] Basophils/100 WBC (Bld) 0.5 % Normal [facility] Comment on above: Order Comment: Speci men Type: BLOOD SPECIMENOrdering Facility: [facility] Address: [address] [place] [address] Performed By: #### 5 7021-8 ####[facility]ATORYCLIA [id number] [address] [place] Differential cell count method Nom (Bld) Auto Normal [facility] Comment on above: Order Comment: Speci men Type: BLOOD SPECIMENOrdering Facility: [facility] Address: [address] [place] [address] Performed By: #### 5 7021-8 ####[facility]ATORYCLIA [id number] [place] [address] [place] Eosinophils (Bld) [#/Vol] 0.43 10*3/uL Normal <0.46 [facility] Comment on above: Order Comment: Speci men Type: BLOOD SPECIMENOrdering Facility: [facility] Address: [address] [place] [address] Performed By: #### 5 7021-8 ####[facility]ORYCLIA [id number] [address] Eosinophils/100 WBC (Bld) 4.1 % Normal [facility] Comment on above: Order Comment: Speci men Type: BLOOD SPECIMENOrdering Facility: [facility] Address: [address] [place] [address] Performed By: #### 5 7021-8 ####[facility]ATORYCLIA [id number] [address] Erythrocyte distribution width (RBC) [Ratio] 16.7 % High 11.5-15.0 [facility] Comment on above: Order Comment: Speci men Type: BLOOD SPECIMENOrdering Facility: [facility] Address: [address] [place] [address] Performed By: #### 5 7021-8 ####[facility]ORYCLIA [id number] [address] Hematocrit (Bld) [Volume fraction] 33.0 % Low 39.0-51.0 [facility] Comment on above: Order Comment: Speci men Type: BLOOD SPECIMENOrdering Facility: [facility] Address: [address] [place] [address] Performed By: #### 5 7021-8 ####[facility]ORYCLIA [id number] [address] Hemoglobin (Bld) [Mass/Vol] 9.7 g/dL Low 13.0-17.0 [facility] Comment on above: Order Comment: Speci men Type: BLOOD SPECIMENOrdering Facility: [facility] Address: [address] [place] [address] Performed By: #### 5 7021-8 ####[facility]ORYCLIA [id number] [address] [place] IMMATURE GRAN % 0.4 % Normal [facility] Comment on above: Order Comment: Speci men Type: BLOOD SPECIMENOrdering Facility: [facility] Address: [address] [place] [address] Performed By: #### 5 7021-8 ####[facility]ORYCLIA [id number] [address] [place] IMMATURE GRAN ABS 0.04 k/uL Normal <0.10 [facility] Comment on above: Order Comment: Speci men Type: BLOOD SPECIMENOrdering Facility: [facility] Address: [address] [place] [address] Performed By: #### 5 7021-8 ####[facility]ORYCLIA [id number] [address] Lymphocytes (Bld) [#/Vol] 1.99 10*3/uL Normal 1.00-4.00 [facility] Comment on above: Order Comment: Speci men Type: BLOOD SPECIMENOrdering Facility: [facility] Address: [address] [place] [address] Performed By: #### 5 7021-8 ####[facility]ORYCLIA [id number] [address] Lymphocytes/100 WBC (Bld) 18.8 % Normal [facility] Comment on above: Order Comment: Speci men Type: BLOOD SPECIMENOrdering Facility: [facility] Address: [address] [place] [address] Performed By: #### 5 7021-8 ####[facility]ORYCLIA [id number] [address] [place] MCH (RBC) [Entitic mass] 27.8 pg Normal 26.0-34.0 [facility] Comment on above: Order Comment: Speci men Type: BLOOD SPECIMENOrdering Facility: [facility] Address: [address] [place] [address] Performed By: #### 5 7021-8 ####[facility]ORYCLIA [id number] [address] MCHC (RBC) [Mass/Vol] 29.4 g/dL Low 30.5-36.0 [facility] Comment on above: Order Comment: Speci men Type: BLOOD SPECIMENOrdering Facility: [facility] Address: [address] [place] [address] Performed By: #### 5 7021-8 ####[facility]ORYCLIA [id number] [address] [place] MCV (RBC) [Entitic vol] 94.6 fL Normal 80.0-100.0 [facility] Comment on above: Order Comment: Speci men Type: BLOOD SPECIMENOrdering Facility: [facility] Address: [address] [place] [address] Performed By: #### 5 7021-8 ####[facility]ORYCLIA [id number] [address] Monocytes (Bld) [#/Vol] 0.82 10*3/uL Normal <0.87 [facility] Comment on above: Order Comment: Speci men Type: BLOOD SPECIMENOrdering Facility: [facility] Address: [address] [place] [address] Performed By: #### 5 7021-8 ####[facility]ORYCLIA [id number] [address] Monocytes/100 WBC (Bld) 7.8 % Normal [facility] Comment on above: Order Comment: Speci men Type: BLOOD SPECIMENOrdering Facility: [facility] Address: [address] [place] [address] Performed By: #### 5 7021-8 ####[facility]ORYCLIA [id number] [address] [place] Neutrophils (Bld) [#/Vol] 7.23 10*3/uL Normal 1.45-7.50 [facility] Comment on above: Order Comment: Speci men Type: BLOOD SPECIMENOrdering Facility: [facility] Address: [address] [address] Performed By: #### 5 7021-8 ####[facility]ORYCLIA [id number] [address] Neutrophils/100 WBC (Bld) 68.4 % Normal [facility] Comment on above: Order Comment: Speci men Type: BLOOD SPECIMENOrdering Facility: [facility] Address: [address] [place] [address] Performed By: #### 5 7021-8 ####[facility]ORYCLIA [id number] [address] [place] Nucleated RBC (Bld) [#/Vol] 10*3/uL Normal <0.01 [facility] Comment on above: Order Comment: Speci men Type: BLOOD SPECIMENOrdering Facility: [facility] Address: [address] [place] [address] Performed By: #### 5 7021-8 ####[facility]ORYCLIA [id number] [address] [place] Nucleated RBC/100 WBC (Bld) [Ratio] 0.0 /100 WBC Normal [facility] Comment on above: Order Comment: Speci men Type: BLOOD SPECIMENOrdering Facility: [facility] Address: [address] [place] [address] Performed By: #### 5 7021-8 ####[facility]ATORYCLIA [id number] [address] [place] Platelet mean volume (Bld) [Entitic vol] 10.5 fL Normal 9.0-12.7 [facility] Comment on above: Order Comment: Speci men Type: BLOOD SPECIMENOrdering Facility: [facility] Address: [address] [place] [address] Performed By: #### 5 7021-8 ####[facility]ORYCLIA [id number] [address] [place] Platelets (Bld) [#/Vol] 400 10*3/uL Normal 150-400 [facility] Comment on above: Order Comment: Speci men Type: BLOOD SPECIMENOrdering Facility: [facility] Address: [address] [place] [address] Performed By: #### 5 7021-8 ####[facility]ATORYCLIA [id number] [address] STATES OF [facility] RBC (Bld) [#/Vol] 3.49 10*6/uL Low 4.20-6.00 [facility] Comment on above: Order Comment: Speci men Type: BLOOD SPECIMENOrdering Facility: [facility] Address: [address] [place] [address] Performed By: #### 5 7021-8 ####[facility]ORYCLIA [id number] [address] WBC (Bld) [#/Vol] 10.56 10*3/uL Normal 3.70-11.00 [facility] Comment on above: Order Comment: Speci men Type: BLOOD SPECIMENOrdering Facility: [facility] Address: [address] [place] [address] Performed By: #### 5 7021-8 ####[facility]ORYCLIA [id number] [address] CONSULT PROGon 07-20-2021 CONSULT PROG Normal [facility] CT BRAIN WO IVCONon 07-21-[address] BRAIN WO IVCON Normal [facility] Magnesium SerPl-mCncon 07-20 Magnesium [Mass/Vol] 2.4 mg/dL High 1.7-2.3 [facility] Comment on above: Order Comment: Speci men Type: BLOOD SPECIMENOrdering Facility: [facility] Address: [address] [place] [address] Performed By: #### 2 4321-2, 27000-8, 2777-1 ####[facility]ORYCLIA [id number] [address] [place] NUTRITIONon 07-20-2021 NUTRITION Normal [facility] Phosphate SerPl-mCncon 07-20 Phosphate [Mass/Vol] 4.1 mg/dL Normal 2.7-4.8 [facility] Comment on above: Order Comment: Speci men Type: BLOOD SPECIMENOrdering Facility: [facility] Address: [address] [place] [address] Performed By: #### 2 4321-2, 19388-4, 2777-1 ####[facility]ATORYCLIA [id number] [address] [place] aPTT PPPon 07-20-2021 aPTT Coag (PPP) [Time] 53.6 s High 23.0-32.4 [facility] Comment on above: Order Comment: Speci men Type: BLOOD SPECIMENOrdering Facility: [facility] Address: [address] [place] [address] Performed By: #### 1 4979-9 ####[facility]ATORYCLIA [id number] [place] [address] [place] Bacteria CSF Culton 07-20-19 22 Bacteria identified Cx Nom (CSF) CULTURE, CSF: No growth 14 days GRAM STAIN: No organisms seen No Polymorphonuclear Leukocytes Rare Mononuclear cells Gram stain performed on cytospun specimen. Normal [facility] Comment on above: Performed By: #### 6 06-4 ####[facility]ORYCLIA [id number] [address] [place] CONSULT PROGon 07-19-2021 CONSULT PROG Normal [facility] CSF MANUAL DIFFon 07-19-2021 DIF TTL, CSF 100 cells counted Normal [facility] Comment on above: Order Comment: Speci men Type: CEREBROSPINAL FLUIDOrdering Facility: [facility] Address: [address] [place] [address] Performed By: #### L [id number], 33824-8, [id number] ####[facility]ATORYCLIA [id number] [place] [address] [place] EOSIN%, CSF 1 % Normal [facility] Comment on above: Order Comment: Speci men Type: CEREBROSPINAL FLUIDOrdering Facility: [facility] Address: [address] [place] [address] Performed By: #### L [id number], 31987-5, [id number] ####[facility]ORYCLIA [id number] [address] [place] LYMPH%, CSF 67 % Normal 50-90 [facility] Comment on above: Order Comment: Speci men Type: CEREBROSPINAL FLUIDOrdering Facility: [facility] Address: [address] [place] [address] Performed By: #### L [id number], 67753-6, [id number] ####[facility]ATORYCLIA [id number] [place] [address] [place] MACRO%, CSF 1 % High <1 [facility] Comment on above: Order Comment: Speci men Type: CEREBROSPINAL FLUIDOrdering Facility: [facility] Address: [address] [place] [address] Performed By: #### L [id number], 16089-4, [id number] ####[facility]ORYCLIA [id number] [address] [place] MONO%, CSF 18 % Normal 10-50 [facility] Comment on above: Order Comment: Speci men Type: CEREBROSPINAL FLUIDOrdering Facility: [facility] Address: [address] [place] [address] Performed By: #### L [id number], 38153-7, [id number] ####[facility]ATORYCLIA [id number] [place] [address] [place] NEUT%, CSF 11 % High 0-3 [facility] Comment on above: Order Comment: Speci men Type: CEREBROSPINAL FLUIDOrdering Facility: [facility] Address: [address] [place] [address] Performed By: #### L [id number], 30421-4, [id number] ####[facility]ORYCLIA [id number] [address] OTHER CL%, CSF 2 % Normal [facility] Comment on above: Order Comment: Speci men Type: CEREBROSPINAL FLUIDOrdering Facility: [facility] Address: [address] [place] [address] Result Comment: Path review to follow. Performed By: #### L [id number], 44481-6, [id number] ####[facility]ATORYCLIA [id number] [address] [place] CSF PATHOLOGIST INTERP (LAB REFLEX ORDER-NO BILL)on 07-19-2021 CSF STAFF REVIEW Normal [facility] Comment on above: Order Comment: Speci men Type: CEREBROSPINAL FLUIDOrdering Facility: [facility] Address: [address] [place] [address] Performed By: #### L [id number], 29805-7, [id number] ####[facility]ATORYCLIA [id number] [address] Pathologist name Reviewed by Wing Cummings MD [facility] Comment on above: Order Comment: Speci men Type: CEREBROSPINAL FLUIDOrdering Facility: [facility] Address: [address] [place] [address] Performed By: #### L [id number], 23987-4, [id number] ####[facility]ORYCLIA [id number] [address] Cell count panel (CSF)on Clarity (CSF) Clear Normal Clear [facility] Comment on above: Order Comment: Speci men Type: CEREBROSPINAL FLUIDOrdering Facility: [facility] Address: [address] [place] [address] Performed By: #### L [id number], 96839-8, [id number] ####[facility]ORYCLIA [id number] [address] Clarity (Unsp spec) Not Indicated Normal Clear [facility] Comment on above: Order Comment: Speci men Type: CEREBROSPINAL FLUIDOrdering Facility: [facility] Address: [address] [place], [place] [address] Performed By: #### L [id number], 02026-4, [id number] ####[facility]ORYCLIA [id number] [address] Color (CSF) Colorless Normal Colorless [facility] Comment on above: Order Comment: Speci men Type: CEREBROSPINAL FLUIDOrdering Facility: [facility] Address: [address] [place] [address] Performed By: #### L [id number], 10383-7, [id number] ####[facility]ORYCLIA [id number] [address] OF [facility] Color (Spun CSF) Not Indicated Normal Colorless [facility] Comment on above: Order Comment: Speci men Type: CEREBROSPINAL FLUIDOrdering Facility: [facility] Address: [address] [place] [address] Performed By: #### L [id number], 51468-3, [id number] ####[facility]ORYCLIA [id number] [address] [facility] CSF [employer] Normal [facility] Comment on above: Order Comment: Speci men Type: CEREBROSPINAL FLUIDOrdering Facility: [facility] Address: [address] [place] [address] Performed By: #### L [id number], 38078-6, [id number] ####[facility]ORYCLIA [id number] [address] [place] RBC Manual cnt (CSF) [#/Vol] 0 cells/uL Normal 0-5 [facility] Comment on above: Order Comment: Speci men Type: CEREBROSPINAL FLUIDOrdering Facility: [facility] Address: [address] [place] [address] Performed By: #### L [id number], 09304-2, [id number] ####[facility]ORYCLIA [id number] [address] [place] WBC Manual cnt (CSF) [#/Vol] 2 cells/uL Normal 0-5 [facility] Comment on above: Order Comment: Speci men Type: CEREBROSPINAL FLUIDOrdering Facility: [facility] Address: [address] [place] [address] Performed By: #### L [id number], 47396-0, [id number] ####[facility]ATORYCLIA [id number] [place] [address] [place] Glucose CSF-mCncon Glucose (CSF) [Mass/Vol] 69 mg/dL Normal 40-70 [facility] Comment on above: Order Comment: Speci men Type: CEREBROSPINAL FLUIDOrdering Facility: [facility] Address: [address] [place] [address] Result Comment: Lumb ar CSF glucose values of healthy patients are approximately 60% of the plasma values and must always be compared with a concurrently measured plasma value for adequate clinical interpretation.References: 1. Glucose HK (GLUC3) [package insert V 12.0 Haitian]. [employer], [place], [place]. September 2015. 2. Michelle Moore, Loki HGarfield (2015). Chapter 7: Glucose and Lactate. FGarfield Alcocer al.(eds.), Cerebrospinal Fluid in Clinical Neurology. [employer]: [employer]. Performed By: #### 2 342-4, 2880-3 ####[facility]ORATORYCLIA [id number] [place] [address] [place] NURSING PROGon 07-19-2021 NURSING PROG Normal [facility] NURSING PROG Normal [facility] Prot CSF-ncon 07-19-2021 Protein (CSF) [Mass/Vol] 51 mg/dL High 15-45 [facility] Comment on above: Order Comment: Speci men Type: CEREBROSPINAL FLUIDOrdering Facility: [facility] Address: [address] [place], [place] [address] Performed By: #### 2 342-4, 2880-3 ####[facility]ATORYCLIA [id number] [address] [place] THERAPY NTon 07-19-2021 THERAPY NT Normal [facility] Urinalysis complete panel (U )on 07-19-2021 Bilirubin Ql (U) Negative Normal Negative [facility] Comment on above: Order Comment: Speci men Type: URINE SPECIMENOrdering Facility: [facility] Address: [address] [place] [address] Performed By: #### 2 4356-8 ####[facility]ATORYCLIA [id number] [address] Clarity (Unsp spec) Clear Normal Clear [facility] Comment on above: Order Comment: Speci men Type: URINE SPECIMENOrdering Facility: [facility] Address: [address] [place] [address] Performed By: #### 2 4356-8 ####[facility]ATORYCLIA [id number] [address] Color (U) Colorless Normal yellow [facility] Comment on above: Order Comment: Speci men Type: URINE SPECIMENOrdering Facility: [facility] Address: [address] [place] [address] Performed By: #### 2 4356-8 ####[facility]ATORYCLIA [id number] [address] Glucose Test strip (U) [Mass/Vol] Negative Normal Negative [facility] Comment on above: Order Comment: Speci men Type: URINE SPECIMENOrdering Facility: [facility] Address: [address] [place] [address] Performed By: #### 2 4356-8 ####[facility]ATORYCLIA [id number] [address] [place] [facility] Hemoglobin Ql (U) Trace Abnormal Negative [facility] Comment on above: Order Comment: Speci men Type: URINE SPECIMENOrdering Facility: [facility] Address: [address] [place] [address] Performed By: #### 2 4356-8 ####[facility]ATORYCLIA [id number] [address] [place] Hyaline casts (Urine sed) [#/Area] 1-3 /LPF Abnormal 0 /LPF [facility] Comment on above: Order Comment: Speci men Type: URINE SPECIMENOrdering Facility: [facility] Address: [address] [place] [address] Performed By: #### 2 4356-8 ####[facility]ATORYCLIA [id number] [address] [place] [facility] Ketones Ql (U) Negative Normal Negative [facility] Comment on above: Order Comment: Speci men Type: URINE SPECIMENOrdering Facility: [facility] Address: [address] [place] [address] Performed By: #### 2 4356-8 ####[facility]ATORYCLIA [id number] [address] Leukocyte esterase Test strip Ql (U) Negative Normal Negative [facility] Comment on above: Order Comment: Speci men Type: URINE SPECIMENOrdering Facility: [facility] Address: [address] [place] [address] Performed By: #### 2 4356-8 ####[facility]ATORYCLIA [id number] [address] [place] [facility] Nitrite Ql (U) Negative Normal Negative [facility] Comment on above: Order Comment: Speci men Type: URINE SPECIMENOrdering Facility: [facility] Address: [address] [place] [address] Performed By: #### 2 4356-8 ####[facility]ORYCLIA [id number] [address] [place] pH (U) 7.0 [pH] Normal 5.0-8.0 [facility] Comment on above: Order Comment: Speci men Type: URINE SPECIMENOrdering Facility: [facility] Address: [address] [place] [address] Performed By: #### 2 4356-8 ####[facility]ORATORYCLIA [id number] [place] [address] [place] Protein (U) [Mass/Vol] Negative Normal Negative [facility] Comment on above: Order Comment: Speci men Type: URINE SPECIMENOrdering Facility: [facility] Address: [address] [place] [address] Performed By: #### 2 4356-8 ####[facility]ORATORYCLIA [id number] [address] [place] [facility] RBC LM.HPF (Urine sed) [#/Area] 6-10 /HPF Abnormal 0-3 /HPF [facility] Comment on above: Order Comment: Speci men Type: URINE SPECIMENOrdering Facility: [facility] Address: [address] [place] [address] Performed By: #### 2 4356-8 ####[facility]ORATORYCLIA [id number] [address] Specific gravity (U) [Rel density] 1.008 Normal 1.005-1.030 [facility] Comment on above: Order Comment: Speci men Type: URINE SPECIMENOrdering Facility: [facility] Address: [address] [place] [address] Performed By: #### 2 4356-8 ####[facility]ATORYCLIA [id number] [address] Urobilinogen Ql (U) Normal Normal Negative [facility] Comment on above: Order Comment: Speci men Type: URINE SPECIMENOrdering Facility: [facility] Address: [address] [place] [address] Performed By: #### 2 4356-8 ####[facility]ATORYCLIA [id number] [address] WBC LM.HPF (Urine sed) [#/Area] 0-5 /HPF Normal 0-5 /HPF [facility] Comment on above: Order Comment: Speci men Type: URINE SPECIMENOrdering Facility: [facility] Address: [address] [place] [address] Performed By: #### 2 4356-8 ####[facility]ATORYCLIA [id number] [address] [place] Vancomycin random [Mass/Vol] on 07-19-2021 Vancomycin [Mass/Vol] 13.9 ug/mL Normal 10.0-20.0 [facility] Comment on above: Order Comment: Speci men Type: BLOOD SPECIMENOrdering Facility: [facility] Address: [address] [place] [address] Result Comment: Refe rence ranges and high/low indicator flags are provided as general guidelines only. The treating physician must determine appropriate target levels/dosing based on the specific clinical situation. Performed By: #### 4 091-5 ####[facility]ATORYCLIA [id number] [address] [place] aPTT PPPon 07-19-2021 aPTT Coag (PPP) [Time] 53.9 s High 23.0-32.4 [facility] Comment on above: Order Comment: Speci men Type: BLOOD SPECIMENOrdering Facility: [facility] Address: [address] [place] [address] Performed By: #### 1 4979-9 ####[facility]ORATORYCLIA [id number] [place] [address] [place] Basic metabolic 2000 panelon 07-18-2021 Anion gap [Moles/Vol] 6 mmol/L Low 9-18 [facility] Comment on above: Order Comment: Speci men Type: BLOOD SPECIMENOrdering Facility: [facility] Address: [address] [place] [address] Performed By: #### 2 4321-2, 92859-9, 2777-1 ####[facility]ATORYCLIA [id number] [address] [place] Calcium [Mass/Vol] 9.4 mg/dL Normal 8.5-10.2 [facility] Comment on above: Order Comment: Speci men Type: BLOOD SPECIMENOrdering Facility: [facility] Address: [address] [address] Performed By: #### 2 4321-2, , 2776-05 ####[facility]ORATORYCLIA [id number] [place] [address] [place] Chloride [Moles/Vol] 103 mmol/L Normal 97-105 [facility] Comment on above: Order Comment: Speci men Type: BLOOD SPECIMENOrdering Facility: [facility] Address: [address] [place] [address] Performed By: #### 2 4321-2, , 2776-05 ####[facility]ORATORYCLIA [id number] [place] [id number] [place] CO2 [Moles/Vol] 34 mmol/L High 22-30 [facility] Comment on above: Order Comment: Speci men Type: BLOOD SPECIMENOrdering Facility: [facility] Address: [address] [place] [address] Performed By: #### 2 4321-2, , 2776-05 ####[facility]CL[facility] [id number] [address] [facility] Creatinine [Mass/Vol] 0.75 mg/dL Normal 0.73-1.22 [facility] Comment on above: Order Comment: Speci men Type: BLOOD SPECIMENOrdering Facility: [facility] Address: [address] [place] [address] Performed By: #### 2 4321-2, , 2776-05 ####[facility]NACLIA [id number] [address] ESTIMATED GLOMERULAR FILTRATION RATE 98 mL/min/1.73m??? Normal >=60 [facility] Comment on above: Order Comment: Speci men Type: BLOOD SPECIMENOrdering Facility: [facility] Address: [address] [place] [address] Result Comment: Luzmaria mated Glomerular Filtration Rate [...] Performed By: #### 2 4321-2, , 2776-05 ####[facility]ORATORYCLIA [id number] [place] [address] [place] Glucose [Mass/Vol] 125 mg/dL High 74-99 [facility] Comment on above: Order Comment: Shira feldman Type: BLOOD SPECIMENOrdering Facility: [facility] Address: [address] [id number] Result Comment: The [place] [employer] (ADA) provides guidance for cutoff [...] Standards of Medical Care in Diabetes 2016, [place] [employer]. Diabetes Care. 2016.39(Suppl 1). Performed By: #### 2 4321-2, , 2776-05 ####[facility]ATORYCLIA [id number] [place] [address] [place] Potassium [Moles/Vol] 4.4 mmol/L Normal 3.7-5.1 [facility] Comment on above: Order Comment: Shira feldman Type: BLOOD SPECIMENOrdering Facility: [facility] Address: [address] [place] [address] Performed By: #### 2 4321-2, , 2776-05 ####[facility]ATORYCLIA [id number] [place] [address] [place] Sodium [Moles/Vol] 143 mmol/L Normal 136-144 [facility] Comment on above: Order Comment: Speci men Type: BLOOD SPECIMENOrdering Facility: [facility] Address: [address] [place] [address] Performed By: #### 2 4321-2, , 2776-05 ####[facility]ATORYCLIA [id number] [address] [place] Urea nitrogen [Mass/Vol] 33 mg/dL High 9-24 [facility] Comment on above: Order Comment: Speci men Type: BLOOD SPECIMENOrdering Facility: [facility] Address: [address] [place] [address] Performed By: #### 2 4321-2, , 2776-05 ####[facility]ATORYCLIA [id number] [address] [place] CASE MANAGEMon 07-18-2021 CASE MANAGEM Normal [facility] CBC W Auto Differential pane l (Bld)on 07-18-2021 Basophils (Bld) [#/Vol] 0.05 10*3/uL Normal <0.11 [facility] Comment on above: Order Comment: Speci men Type: BLOOD SPECIMENOrdering Facility: [facility] Address: [address] [place] [address] Performed By: #### 5 7021-8 ####[facility]ATORYCLIA [id number] [address] [place] Basophils/100 WBC (Bld) 0.5 % Normal [facility] Comment on above: Order Comment: Speci men Type: BLOOD SPECIMENOrdering Facility: [facility] Address: [address] [place] [address] Performed By: #### 5 7021-8 ####[facility]ATORYCLIA [id number] [address] [place] OF [facility] Differential cell count method Nom (Bld) Auto Normal [facility] Comment on above: Order Comment: Speci men Type: BLOOD SPECIMENOrdering Facility: [facility] Address: [address] [place] [address] Performed By: #### 5 7021-8 ####[facility]ORATORYCLIA [id number] [address] [place] [facility] Eosinophils (Bld) [#/Vol] 0.44 10*3/uL Normal <0.46 [facility] Comment on above: Order Comment: Speci men Type: BLOOD SPECIMENOrdering Facility: [facility] Address: [address] [place] [address] Performed By: #### 5 7021-8 ####[facility]ATORYCLIA [id number] [address] Eosinophils/100 WBC (Bld) 4.3 % Normal [facility] Comment on above: Order Comment: Speci men Type: BLOOD SPECIMENOrdering Facility: [facility] Address: [address] [place] [address] Performed By: #### 5 7021-8 ####[facility]ATORYCLIA [id number] [address] Erythrocyte distribution width (RBC) [Ratio] 16.6 % High 11.5-15.0 [facility] Comment on above: Order Comment: Speci men Type: BLOOD SPECIMENOrdering Facility: [facility] Address: [address] [place] [address] Performed By: #### 5 7021-8 ####[facility]ATORYCLIA [id number] [address] Hematocrit (Bld) [Volume fraction] 32.2 % Low 39.0-51.0 [facility] Comment on above: Order Comment: Speci men Type: BLOOD SPECIMENOrdering Facility: [facility] Address: [address] [place] [address] Performed By: #### 5 7021-8 ####[facility]ATORYCLIA [id number] [address] Hemoglobin (Bld) [Mass/Vol] 9.5 g/dL Low 13.0-17.0 [facility] Comment on above: Order Comment: Speci men Type: BLOOD SPECIMENOrdering Facility: [facility] Address: [address] [place] [address] Performed By: #### 5 7021-8 ####[facility]ATORYCLIA [id number] [address] IMMATURE GRAN % 0.4 % Normal [facility] Comment on above: Order Comment: Speci men Type: BLOOD SPECIMENOrdering Facility: [facility] Address: [address] [place] [address] Performed By: #### 5 7021-8 ####[facility]ATORYCLIA [id number] [address] IMMATURE GRAN ABS 0.04 k/uL Normal <0.10 [facility] Comment on above: Order Comment: Speci men Type: BLOOD SPECIMENOrdering Facility: [facility] Address: [address] [place] [address] Performed By: #### 5 7021-8 ####[facility]ATORYCLIA [id number] [address] Lymphocytes (Bld) [#/Vol] 1.71 10*3/uL Normal 1.00-4.00 [facility] Comment on above: Order Comment: Speci men Type: BLOOD SPECIMENOrdering Facility: [facility] Address: [address] [place] [address] Performed By: #### 5 7021-8 ####[facility]ATORYCLIA [id number] [address] Lymphocytes/100 WBC (Bld) 16.9 % Normal [facility] Comment on above: Order Comment: Speci men Type: BLOOD SPECIMENOrdering Facility: [facility] Address: [address] [place] [address] Performed By: #### 5 7021-8 ####[facility]ORATORYCLIA [id number] [address] MCH (RBC) [Entitic mass] 27.9 pg Normal 26.0-34.0 [facility] Comment on above: Order Comment: Speci men Type: BLOOD SPECIMENOrdering Facility: [facility] Address: [address] [place] [address] Performed By: #### 5 7021-8 ####[facility]ATORYCLIA [id number] [address] [place] [facility] MCHC (RBC) [Mass/Vol] 29.5 g/dL Low 30.5-36.0 [facility] Comment on above: Order Comment: Speci men Type: BLOOD SPECIMENOrdering Facility: [facility] Address: [address] [place] [address] Performed By: #### 5 7021-8 ####[facility]ATORYCLIA [id number] [address] [place] [facility] MCV (RBC) [Entitic vol] 94.7 fL Normal 80.0-100.0 [facility] Comment on above: Order Comment: Speci men Type: BLOOD SPECIMENOrdering Facility: [facility] Address: [address] [place] [address] Performed By: #### 5 7021-8 ####[facility]ATORYCLIA [id number] [address] Monocytes (Bld) [#/Vol] 0.69 10*3/uL Normal <0.87 [facility] Comment on above: Order Comment: Speci men Type: BLOOD SPECIMENOrdering Facility: [facility] Address: [address] [place] [address] Performed By: #### 5 7021-8 ####[facility]ATORYCLIA [id number] [address] Monocytes/100 WBC (Bld) 6.8 % Normal [facility] Comment on above: Order Comment: Speci men Type: BLOOD SPECIMENOrdering Facility: [facility] Address: [address] [place] [address] Performed By: #### 5 7021-8 ####[facility]ATORYCLIA [id number] [place] [address] [place] Neutrophils (Bld) [#/Vol] 7.19 10*3/uL Normal 1.45-7.50 [facility] Comment on above: Order Comment: Speci men Type: BLOOD SPECIMENOrdering Facility: [facility] Address: [address] [place] [address] Performed By: #### 5 7021-8 ####[facility]ATORYCLIA [id number] [address] [place] Neutrophils/100 WBC (Bld) 71.1 % Normal [facility] Comment on above: Order Comment: Speci men Type: BLOOD SPECIMENOrdering Facility: [facility] Address: [address] [place] [address] Performed By: #### 5 7021-8 ####[facility]ATORYCLIA [id number] [address] [place] Nucleated RBC (Bld) [#/Vol] 10*3/uL Normal <0.01 [facility] Comment on above: Order Comment: Speci men Type: BLOOD SPECIMENOrdering Facility: [facility] Address: [address] [place] [address] Performed By: #### 5 7021-8 ####[facility]ATORYCLIA [id number] [address] [place] Nucleated RBC/100 WBC (Bld) [Ratio] 0.0 /100 WBC Normal [facility] Comment on above: Order Comment: Speci men Type: BLOOD SPECIMENOrdering Facility: [facility] Address: [address] [place] [address] Performed By: #### 5 7021-8 ####[facility]ATORYCLIA [id number] [address] [place] Platelet mean volume (Bld) [Entitic vol] 10.3 fL Normal 9.0-12.7 [facility] Comment on above: Order Comment: Speci men Type: BLOOD SPECIMENOrdering Facility: [facility] Address: [address] [place], [place] [address] Performed By: #### 5 7021-8 ####[facility]ATORYCLIA [id number] [address] [facility] Platelets (Bld) [#/Vol] 403 10*3/uL High 150-400 [facility] Comment on above: Order Comment: Speci men Type: BLOOD SPECIMENOrdering Facility: [facility] Address: [address] [place] [address] Performed By: #### 5 7021-8 ####[facility]ATORYCLIA [id number] [place] [address] [place] RBC (Bld) [#/Vol] 3.40 10*6/uL Low 4.20-6.00 [facility] Comment on above: Order Comment: Speci men Type: BLOOD SPECIMENOrdering Facility: [facility] Address: [address] [place] [address] Performed By: #### 5 7021-8 ####[facility]ATORYCLIA [id number] [address] [place] WBC (Bld) [#/Vol] 10.12 10*3/uL Normal 3.70-11.00 [facility] Comment on above: Order Comment: Speci men Type: BLOOD SPECIMENOrdering Facility: [facility] Address: [address] [place] [address] Performed By: #### 5 7021-8 ####[facility]ATORYCLIA [id number] [address] [place] Magnesium SerPl-mCncon 07-18 Magnesium [Mass/Vol] 2.4 mg/dL High 1.7-2.3 [facility] Comment on above: Order Comment: Speci men Type: BLOOD SPECIMENOrdering Facility: [facility] Address: [address] [place] [address] Performed By: #### 2 4321-2, 06933-6, 2777-1 ####[facility]ATORYCLIA [id number] [address] NURSING PROGon 07-18-2021 NURSING PROG Normal [facility] NURSING PROG Normal [facility] Phosphate SerPl-mCncon 07-18 Phosphate [Mass/Vol] 3.9 mg/dL Normal 2.7-4.8 [facility] Comment on above: Order Comment: Speci men Type: BLOOD SPECIMENOrdering Facility: [facility] Address: [address] [place] [address] Performed By: #### 2 4321-2, 99331-3, 2777-1 ####[facility]ATORYCLIA [id number] [address] THERAPY NTon 07-18-2021 THERAPY NT Normal [facility] aPTT PPPon 07-18-2021 aPTT Coag (PPP) [Time] 52.3 s High 23.0-32.4 [facility] Comment on above: Order Comment: Speci men Type: BLOOD SPECIMENOrdering Facility: [facility] Address: [address] [place] [address] Performed By: #### 1 4979-9 ####[facility]ATORYCLIA [id number] [address] [facility] CBC W Auto Differential pane l (Bld)on 07-17-2021 Basophils (Bld) [#/Vol] 0.05 10*3/uL Normal <0.11 [facility] Comment on above: Order Comment: Speci men Type: BLOOD SPECIMENOrdering Facility: [facility] Address: [address] [place] [address] Performed By: #### 5 7021-8 ####[facility]ATORYCLIA [id number] [address] Basophils/100 WBC (Bld) 0.5 % Normal [facility] Comment on above: Order Comment: Speci men Type: BLOOD SPECIMENOrdering Facility: [facility] Address: [address] [place] [address] Performed By: #### 5 7021-8 ####[facility]ATORYCLIA [id number] [address] Differential cell count method Nom (Bld) Auto Normal [facility] Comment on above: Order Comment: Speci men Type: BLOOD SPECIMENOrdering Facility: [facility] Address: [address] [place] [address] Performed By: #### 5 7021-8 ####[facility]ATORYCLIA [id number] [address] Eosinophils (Bld) [#/Vol] 0.32 10*3/uL Normal <0.46 [facility] Comment on above: Order Comment: Speci men Type: BLOOD SPECIMENOrdering Facility: [facility] Address: [address] [place] [address] Performed By: #### 5 7021-8 ####[facility]ATORYCLIA [id number] [address] Eosinophils/100 WBC (Bld) 3.4 % Normal [facility] Comment on above: Order Comment: Speci men Type: BLOOD SPECIMENOrdering Facility: [facility] Address: [address] [place] [address] Performed By: #### 5 7021-8 ####[facility]ATORYCLIA [id number] [address] Erythrocyte distribution width (RBC) [Ratio] 16.6 % High 11.5-15.0 [facility] Comment on above: Order Comment: Speci men Type: BLOOD SPECIMENOrdering Facility: [facility] Address: [address] [place] [address] Performed By: #### 5 7021-8 ####[facility]ATORYCLIA [id number] [address] Hematocrit (Bld) [Volume fraction] 30.7 % Low 39.0-51.0 [facility] Comment on above: Order Comment: Speci men Type: BLOOD SPECIMENOrdering Facility: [facility] Address: [address] [place] [address] Performed By: #### 5 7021-8 ####[facility]ATORYCLIA [id number] [address] Hemoglobin (Bld) [Mass/Vol] 9.0 g/dL Low 13.0-17.0 [facility] Comment on above: Order Comment: Speci men Type: BLOOD SPECIMENOrdering Facility: [facility] Address: [address] [place] [address] Performed By: #### 5 7021-8 ####[facility]ATORYCLIA [id number] [address] IMMATURE GRAN % 0.6 % Normal [facility] Comment on above: Order Comment: Speci men Type: BLOOD SPECIMENOrdering Facility: [facility] Address: [address] [place] [address] Performed By: #### 5 7021-8 ####[facility]ATORYCLIA [id number] [address] IMMATURE GRAN ABS 0.06 k/uL Normal <0.10 [facility] Comment on above: Order Comment: Speci men Type: BLOOD SPECIMENOrdering Facility: [facility] Address: [address] [place] [address] Performed By: #### 5 7021-8 ####[facility]ORYCLIA [id number] [address] Lymphocytes (Bld) [#/Vol] 1.61 10*3/uL Normal 1.00-4.00 [facility] Comment on above: Order Comment: Speci men Type: BLOOD SPECIMENOrdering Facility: [facility] Address: [address] [place] [address] Performed By: #### 5 7021-8 ####[facility]ORYCLIA [id number] [address] Lymphocytes/100 WBC (Bld) 17.3 % Normal [facility] Comment on above: Order Comment: Speci men Type: BLOOD SPECIMENOrdering Facility: [facility] Address: [address] [place] [address] Performed By: #### 5 7021-8 ####[facility]ATORYCLIA [id number] [address] MCH (RBC) [Entitic mass] 26.9 pg Normal 26.0-34.0 [facility] Comment on above: Order Comment: Speci men Type: BLOOD SPECIMENOrdering Facility: [facility] Address: [address] [place] [address] Performed By: #### 5 7021-8 ####[facility]ATORYCLIA [id number] [address] MCHC (RBC) [Mass/Vol] 29.3 g/dL Low 30.5-36.0 [facility] Comment on above: Order Comment: Speci men Type: BLOOD SPECIMENOrdering Facility: [facility] Address: [address] [place] [address] Performed By: #### 5 7021-8 ####[facility]ATORYCLIA [id number] [address] MCV (RBC) [Entitic vol] 91.9 fL Normal 80.0-100.0 [facility] Comment on above: Order Comment: Speci men Type: BLOOD SPECIMENOrdering Facility: [facility] Address: [address] [place] [address] Performed By: #### 5 7021-8 ####[facility]ATORYCLIA [id number] [address] Monocytes (Bld) [#/Vol] 0.61 10*3/uL Normal <0.87 [facility] Comment on above: Order Comment: Speci men Type: BLOOD SPECIMENOrdering Facility: [facility] Address: [address] [place] [address] Performed By: #### 5 7021-8 ####[facility]ATORYCLIA [id number] [address] [place] Monocytes/100 WBC (Bld) 6.6 % Normal [facility] Comment on above: Order Comment: Speci men Type: BLOOD SPECIMENOrdering Facility: [facility] Address: [address] [place] [address] Performed By: #### 5 7021-8 ####[facility]ATORYCLIA [id number] [address] [place] Neutrophils (Bld) [#/Vol] 6.64 10*3/uL Normal 1.45-7.50 [facility] Comment on above: Order Comment: Speci men Type: BLOOD SPECIMENOrdering Facility: [facility] Address: [address] [place] [address] Performed By: #### 5 7021-8 ####[facility]ATORYCLIA [id number] [address] Neutrophils/100 WBC (Bld) 71.6 % Normal [facility] Comment on above: Order Comment: Speci men Type: BLOOD SPECIMENOrdering Facility: [facility] Address: [address] [place] [address] Performed By: #### 5 7021-8 ####[facility]ATORYCLIA [id number] [address] [place] Nucleated RBC (Bld) [#/Vol] 10*3/uL Normal <0.01 [facility] Comment on above: Order Comment: Speci men Type: BLOOD SPECIMENOrdering Facility: [facility] Address: [address] [place] [address] Performed By: #### 5 7021-8 ####[facility]ATORYCLIA [id number] [address] [place] Nucleated RBC/100 WBC (Bld) [Ratio] 0.0 /100 WBC Normal [facility] Comment on above: Order Comment: Speci men Type: BLOOD SPECIMENOrdering Facility: [facility] Address: [address] Performed By: #### 5 7021-8 ####[facility]ATORYCLIA [id number] [address] Platelet mean volume (Bld) [Entitic vol] 10.1 fL Normal 9.0-12.7 [facility] Comment on above: Order Comment: Speci men Type: BLOOD SPECIMENOrdering Facility: [facility] Address: [address] [place], [place] [address] Performed By: #### 5 7021-8 ####[facility]ATORYCLIA [id number] [address] [place] Platelets (Bld) [#/Vol] 387 10*3/uL Normal 150-400 [facility] Comment on above: Order Comment: Speci men Type: BLOOD SPECIMENOrdering Facility: [facility] Address: [address] [place] [address] Performed By: #### 5 7021-8 ####[facility]ATORYCLIA [id number] [address] [place] RBC (Bld) [#/Vol] 3.34 10*6/uL Low 4.20-6.00 [facility] Comment on above: Order Comment: Speci men Type: BLOOD SPECIMENOrdering Facility: [facility] Address: [address] [place], [place] [address] Performed By: #### 5 7021-8 ####[facility]ATORYCLIA [id number] [address] [place] WBC (Bld) [#/Vol] 9.29 10*3/uL Normal 3.70-11.00 [facility] Comment on above: Order Comment: Speci men Type: BLOOD SPECIMENOrdering Facility: [facility] Address: [address] [place], [place] [address] Performed By: #### 5 7021-8 ####[facility]ORATORYCLIA [id number] [address] CONSULT PROGon 03-13-2022 CONSULT PROG Normal [facility] Magnesium SerPl-mCncon 07-17 Magnesium [Mass/Vol] 2.3 mg/dL Normal 1.7-2.3 [facility] Comment on above: Order Comment: Speci men Type: BLOOD SPECIMENOrdering Facility: [facility] Address: [address] [place] [address] Performed By: #### 2 777-1, 79693-9 ####[facility]ORATORYCLIA [id number] [address] NURSING PROGon 07-17-2021 NURSING PROG Normal [facility] NURSING PROG Normal [facility] NURSING PROG Normal [facility] Phosphate SerPl-mCncon 07-17 Phosphate [Mass/Vol] 3.6 mg/dL Normal 2.7-4.8 [facility] Comment on above: Order Comment: Speci men Type: BLOOD SPECIMENOrdering Facility: [facility] Address: [address] [place] [address] Performed By: #### 2 777-1, 66024-4 ####[facility]ORATORYCLIA [id number] [address] aPTT PPPon 07-17-2021 aPTT Coag (PPP) [Time] 57.2 s High 23.0-32.4 [facility] Comment on above: Order Comment: Speci men Type: BLOOD SPECIMENOrdering Facility: [facility] Address: [address] [place] [address] Performed By: #### 1 4979-9 ####[facility]ORATORYCLIA [id number] [address] [place] Basic metabolic 2000 panelon 07-16-2021 Anion gap [Moles/Vol] 5 mmol/L Low 9-18 [facility] Comment on above: Order Comment: Speci men Type: BLOOD SPECIMENOrdering Facility: [facility] Address: [address] [place] [address] Performed By: #### 2 777-1, 19183-0, ####[facility]ATORYCLIA [id number] [place] [address] [place] Calcium [Mass/Vol] 9.1 mg/dL Normal 8.5-10.2 [facility] Comment on above: Order Comment: Speci men Type: BLOOD SPECIMENOrdering Facility: [facility] Address: [address] [place], [place] [address] Performed By: #### 2 777-1, 86663-8, ####[facility]ATORYCLIA [id number] [place] [address] [place] Chloride [Moles/Vol] 101 mmol/L Normal 97-105 [facility] Comment on above: Order Comment: Speci men Type: BLOOD SPECIMENOrdering Facility: [facility] Address: [address] [place] [address] Performed By: #### 2 777-1, , ####[facility]ORATORYCLIA [id number] [place] [address] [place] CO2 [Moles/Vol] 35 mmol/L High 22-30 [facility] Comment on above: Order Comment: Speci men Type: BLOOD SPECIMENOrdering Facility: [facility] Address: [address] [place] [address] Performed By: #### 2 777-1, , ####[facility]ATORYCLIA [id number] [place] [address] [place] Creatinine [Mass/Vol] 0.73 mg/dL Normal 0.73-1.22 [facility] Comment on above: Order Comment: Speci men Type: BLOOD SPECIMENOrdering Facility: [facility] Address: [address] [place] [address] Performed By: #### 2 777-1, 78326-2, ####[facility]ORATORYCLIA [id number] [place] [address] [place] ESTIMATED GLOMERULAR FILTRATION RATE 98 mL/min/1.73m??? Normal >=60 [facility] Comment on above: Order Comment: Shira francia Type: BLOOD SPECIMENOrdering Facility: [facility] Address: [address] [place] [address] Result Comment: Luzmaria mated Glomerular Filtration Rate [...] actual GFR. Performed By: #### 2 777-1, 03120-8, ####[facility]ATORYCLIA [id number] [place] [address] [place] Glucose [Mass/Vol] 133 mg/dL High 74-99 [facility] Comment on above: Order Comment: Shira feldman Type: BLOOD SPECIMENOrdering Facility: [facility] Address: [address] [place] [address] Result Comment: The [place] [employer] (ADA) provides guidance for cutoff [...] Standards of Medical Care in Diabetes 2016, [place] [employer]. Diabetes Care. 2016.39(Suppl 1). Performed By: #### 2 777-1, 41867-3, ####[facility]ATORYCLIA [id number] [place] [address] [place] Potassium [Moles/Vol] 4.2 mmol/L Normal 3.7-5.1 [facility] Comment on above: Order Comment: Speci men Type: BLOOD SPECIMENOrdering Facility: [facility] Address: [address] [place], [place] [address] Performed By: #### 2 777-1, 34845-2, ####[facility]ORATORYCLIA [id number] [address] [place] Sodium [Moles/Vol] 141 mmol/L Normal 136-144 [facility] Comment on above: Order Comment: Speci men Type: BLOOD SPECIMENOrdering Facility: [facility] Address: [address] [place] [address] Performed By: #### 2 777-1, , ####[facility]ORATORYCLIA [id number] [address] [place] Urea nitrogen [Mass/Vol] 21 mg/dL Normal 9-24 [facility] Comment on above: Order Comment: Speci men Type: BLOOD SPECIMENOrdering Facility: [facility] Address: [address] [place] [address] Performed By: #### 2 777-1, , ####[facility]ATORYCLIA [id number] [address] [place] [facility] CBC W Auto Differential pane l (Bld)on 07-16-2021 Basophils (Bld) [#/Vol] 0.06 10*3/uL Normal <0.11 [facility] Comment on above: Order Comment: Speci men Type: BLOOD SPECIMENOrdering Facility: [facility] Address: [address] [place] [address] Performed By: #### 5 7021-8 ####[facility]ORATORYCLIA [id number] [address] Basophils/100 WBC (Bld) 0.7 % Normal [facility] Comment on above: Order Comment: Speci men Type: BLOOD SPECIMENOrdering Facility: [facility] Address: [address] [place], [place] [address] Performed By: #### 5 7021-8 ####[facility]ORATORYCLIA [id number] [address] Differential cell count method Nom (Bld) Auto Normal [facility] Comment on above: Order Comment: Speci men Type: BLOOD SPECIMENOrdering Facility: [facility] Address: [address] [place] [address] Performed By: #### 5 7021-8 ####[facility]ATORYCLIA [id number] [address] [place] Eosinophils (Bld) [#/Vol] 0.35 10*3/uL Normal <0.46 [facility] Comment on above: Order Comment: Speci men Type: BLOOD SPECIMENOrdering Facility: [facility] Address: [address] [place] [address] Performed By: #### 5 7021-8 ####[facility]ATORYCLIA [id number] [address] Eosinophils/100 WBC (Bld) 3.9 % Normal [facility] Comment on above: Order Comment: Speci men Type: BLOOD SPECIMENOrdering Facility: [facility] Address: [address] [place] [address] Performed By: #### 5 7021-8 ####[facility]ORATORYCLIA [id number] [address] [place] Erythrocyte distribution width (RBC) [Ratio] 16.5 % High 11.5-15.0 [facility] Comment on above: Order Comment: Speci men Type: BLOOD SPECIMENOrdering Facility: [facility] Address: [address] [place] [address] Performed By: #### 5 7021-8 ####[facility]ORATORYCLIA [id number] [address] [place] Hematocrit (Bld) [Volume fraction] 30.9 % Low 39.0-51.0 [facility] Comment on above: Order Comment: Speci men Type: BLOOD SPECIMENOrdering Facility: [facility] Address: [address] [place] [address] Performed By: #### 5 7021-8 ####[facility]ATORYCLIA [id number] [address] Hemoglobin (Bld) [Mass/Vol] 9.1 g/dL Low 13.0-17.0 [facility] Comment on above: Order Comment: Speci men Type: BLOOD SPECIMENOrdering Facility: [facility] Address: [address] [place] [address] Performed By: #### 5 7021-8 ####[facility]ORATORYCLIA [id number] [address] IMMATURE GRAN % 0.4 % Normal [facility] Comment on above: Order Comment: Speci men Type: BLOOD SPECIMENOrdering Facility: [facility] Address: [address] [place] [address] Performed By: #### 5 7021-8 ####[facility]ATORYCLIA [id number] [address] IMMATURE GRAN ABS 0.04 k/uL Normal <0.10 [facility] Comment on above: Order Comment: Speci men Type: BLOOD SPECIMENOrdering Facility: [facility] Address: [address] [place] [address] Performed By: #### 5 7021-8 ####[facility]ORATORYCLIA [id number] [address] Lymphocytes (Bld) [#/Vol] 1.35 10*3/uL Normal 1.00-4.00 [facility] Comment on above: Order Comment: Speci men Type: BLOOD SPECIMENOrdering Facility: [facility] Address: [address] [place] [address] Performed By: #### 5 7021-8 ####[facility]ATORYCLIA [id number] [address] Lymphocytes/100 WBC (Bld) 15.0 % Normal [facility] Comment on above: Order Comment: Speci men Type: BLOOD SPECIMENOrdering Facility: [facility] Address: [address] [place] [address] Performed By: #### 5 7021-8 ####[facility]ATORYCLIA [id number] [address] MCH (RBC) [Entitic mass] 27.1 pg Normal 26.0-34.0 [facility] Comment on above: Order Comment: Speci men Type: BLOOD SPECIMENOrdering Facility: [facility] Address: [address] [place] [address] Performed By: #### 5 7021-8 ####[facility]ATORYCLIA [id number] [address] MCHC (RBC) [Mass/Vol] 29.4 g/dL Low 30.5-36.0 [facility] Comment on above: Order Comment: Speci men Type: BLOOD SPECIMENOrdering Facility: [facility] Address: [address] [place] [address] Performed By: #### 5 7021-8 ####[facility]ATORYCLIA [id number] [address] MCV (RBC) [Entitic vol] 92.0 fL Normal 80.0-100.0 [facility] Comment on above: Order Comment: Speci men Type: BLOOD SPECIMENOrdering Facility: [facility] Address: [address] [place] [address] Performed By: #### 5 7021-8 ####[facility]ORATORYCLIA [id number] [address] Monocytes (Bld) [#/Vol] 0.53 10*3/uL Normal <0.87 [facility] Comment on above: Order Comment: Speci men Type: BLOOD SPECIMENOrdering Facility: [facility] Address: [address] [place] [address] Performed By: #### 5 7021-8 ####[facility]ATORYCLIA [id number] [address] [place] Monocytes/100 WBC (Bld) 5.9 % Normal [facility] Comment on above: Order Comment: Speci men Type: BLOOD SPECIMENOrdering Facility: [facility] Address: [address] [place] [address] Performed By: #### 5 7021-8 ####[facility]ORATORYCLIA [id number] [address] [place] Neutrophils (Bld) [#/Vol] 6.67 10*3/uL Normal 1.45-7.50 [facility] Comment on above: Order Comment: Speci men Type: BLOOD SPECIMENOrdering Facility: [facility] Address: [address] [place] [address] Performed By: #### 5 7021-8 ####[facility]ORATORYCLIA [id number] [address] Neutrophils/100 WBC (Bld) 74.1 % Normal [facility] Comment on above: Order Comment: Speci men Type: BLOOD SPECIMENOrdering Facility: [facility] Address: [address] [place] [address] Performed By: #### 5 7021-8 ####[facility]ORYCLIA [id number] [address] [place] Nucleated RBC (Bld) [#/Vol] 10*3/uL Normal <0.01 [facility] Comment on above: Order Comment: Speci men Type: BLOOD SPECIMENOrdering Facility: [facility] Address: [address] [place] [address] Performed By: #### 5 7021-8 ####[facility]ATORYCLIA [id number] [address] [place] Nucleated RBC/100 WBC (Bld) [Ratio] 0.0 /100 WBC Normal [facility] Comment on above: Order Comment: Speci men Type: BLOOD SPECIMENOrdering Facility: [facility] Address: [address] Performed By: #### 5 7021-8 ####[facility]ORATORYCLIA [id number] [address] Platelet mean volume (Bld) [Entitic vol] 9.9 fL Normal 9.0-12.7 [facility] Comment on above: Order Comment: Speci men Type: BLOOD SPECIMENOrdering Facility: [facility] Address: [address] [place], [place] [address] Performed By: #### 5 7021-8 ####[facility]ORATORYCLIA [id number] [address] [place] Platelets (Bld) [#/Vol] 391 10*3/uL Normal 150-400 [facility] Comment on above: Order Comment: Speci men Type: BLOOD SPECIMENOrdering Facility: [facility] Address: [address] [place] [address] Performed By: #### 5 7021-8 ####[facility]ORATORYCLIA [id number] [address] [place] RBC (Bld) [#/Vol] 3.36 10*6/uL Low 4.20-6.00 [facility] Comment on above: Order Comment: Speci men Type: BLOOD SPECIMENOrdering Facility: [facility] Address: [address] [place] [address] Performed By: #### 5 7021-8 ####[facility]ATORYCLIA [id number] [address] [place] WBC (Bld) [#/Vol] 9.00 10*3/uL Normal 3.70-11.00 [facility] Comment on above: Order Comment: Speci men Type: BLOOD SPECIMENOrdering Facility: [facility] Address: [address] [place] [address] Performed By: #### 5 7021-8 ####[facility]ORATORYCLIA [id number] [address] CONSULT PROGon 07-16-2021 CONSULT PROG Normal [facility] CONSULT PROG Normal [facility] Magnesium SerPl-ncon 07-16 Magnesium [Mass/Vol] 2.3 mg/dL Normal 1.7-2.3 [facility] Comment on above: Order Comment: Speci men Type: BLOOD SPECIMENOrdering Facility: [facility] Address: [address] [place] [address] Performed By: #### 2 777-1, 22012-7, ####[facility]ATORYCLIA [id number] [address] NURSING PROGon 07-16-2021 NURSING PROG Normal [facility] Phosphate SerPl-mCncon 07-16 Phosphate [Mass/Vol] 3.6 mg/dL Normal 2.7-4.8 [facility] Comment on above: Order Comment: Speci men Type: BLOOD SPECIMENOrdering Facility: [facility] Address: [address] [place] [address] Performed By: #### 2 777-1, 27360-2, ####[facility]ATORYCLIA [id number] [address] Vancomycin random [Mass/Vol] on 07-16-2021 Vancomycin [Mass/Vol] 16.9 ug/mL Normal 10.0-20.0 [facility] Comment on above: Order Comment: Speci men Type: BLOOD SPECIMENOrdering Facility: [facility] Address: [address] [place] [address] Result Comment: Refe rence ranges and high/low indicator flags are provided as general guidelines only. The treating physician must determine appropriate target levels/dosing based on the specific clinical situation. Performed By: #### 4 091-5 ####[facility]ORATORYCLIA [id number] [address] aPTT PPPon 07-16-2021 aPTT Coag (PPP) [Time] 57.2 s High 23.0-32.4 [facility] Comment on above: Order Comment: Speci men Type: BLOOD SPECIMENOrdering Facility: [facility] Address: [address] [place] [address] Performed By: #### 1 4979-9 ####[facility]ORATORYCLIA [id number] [place] [address] [place] ALLIED HEALTHon 07-15-2021 ALLIED HEALTH Normal [facility] Basic metabolic 2000 panelon 07-15-2021 Anion gap [Moles/Vol] 11 mmol/L Normal 9-18 [facility] Comment on above: Order Comment: Speci men Type: BLOOD SPECIMENOrdering Facility: [facility] Address: [address] [place] [address] Performed By: #### 2 4321-2, , 2776-05 ####[facility]ORATORYCLIA [id number] [place] [address] [place] Calcium [Mass/Vol] 8.8 mg/dL Normal 8.5-10.2 [facility] Comment on above: Order Comment: Speci men Type: BLOOD SPECIMENOrdering Facility: [facility] Address: [address] [place] [address] Performed By: #### 2 4321-2, , 2776-05 ####[facility]ORATORYCLIA [id number] [place] [address] [place] Chloride [Moles/Vol] 101 mmol/L Normal 97-105 [facility] Comment on above: Order Comment: Speci men Type: BLOOD SPECIMENOrdering Facility: [facility] Address: [address] [place], [place] [address] Performed By: #### 2 4321-2, , 2776-05 ####[facility]ATORYCLIA [id number] [place] [address] [place] CO2 [Moles/Vol] 31 mmol/L High 22-30 [facility] Comment on above: Order Comment: Speci men Type: BLOOD SPECIMENOrdering Facility: [facility] Address: [address] [address] Performed By: #### 2 4321-2, , 2776-05 ####[facility]IANACLIA [id number] [place] [id number] [place] Creatinine [Mass/Vol] 0.76 mg/dL Normal 0.73-1.22 [facility] Comment on above: Order Comment: Speci men Type: BLOOD SPECIMENOrdering Facility: [facility] Address: [address] [place] [address] Performed By: #### 2 4321-2, , 2776-05 ####[facility] CENTERIA [id number] [address] [place] ESTIMATED GLOMERULAR FILTRATION RATE 97 mL/min/1.73m??? Normal >=60 [facility] Comment on above: Order Comment: Speci men Type: BLOOD SPECIMENOrdering Facility: [facility] Address: [address] [place] [address] Result Comment: Luzmaria mated Glomerular Filtration Rate [...] Performed By: #### 2 4321-2, , 2776-05 ####[facility]ORATORYIA [id number] [place] [address] [place] Glucose [Mass/Vol] 115 mg/dL High 74-99 [facility] Comment on above: Order Comment: Speci men Type: BLOOD SPECIMENOrdering Facility: [facility] Address: [address] [place] [address] Result Comment: The [place] [employer] (ADA) provides guidance for cutoff [...] Standards of Medical Care in Diabetes 2016, [place] [employer]. Diabetes Care. 2016.39(Suppl 1). Performed By: #### 2 4321-2, , 2776-05 ####[facility]ORATORYCLIA [id number] [place] [address] [place] Potassium [Moles/Vol] 4.0 mmol/L Normal 3.7-5.1 [facility] Comment on above: Order Comment: Shira feldman Type: BLOOD SPECIMENOrdering Facility: [facility] Address: [address] [place] [address] Performed By: #### 2 432-2, , 2776-05 ####[facility]ATORYCLIA [id number] [place] [address] [place] Sodium [Moles/Vol] 143 mmol/L Normal 136-144 [facility] Comment on above: Order Comment: Shira feldman Type: BLOOD SPECIMENOrdering Facility: [facility] Address: [address] [place] [address] Performed By: #### 2 432-2, , 2776-05 ####[facility]ATORYCLIA [id number] [place] [address] [place] Urea nitrogen [Mass/Vol] 17 mg/dL Normal 9-24 [facility] Comment on above: Order Comment: Shira feldman Type: BLOOD SPECIMENOrdering Facility: [facility] Address: [address] [place] [address] Performed By: #### 2 432-2, , 2776-05 ####[facility]ORATORYCLIA [id number] [address] CASE MANAGEMon 07-15-2021 CASE MANAGEM Normal [facility] CBC panel Auto (Bld)on 07-15 Erythrocyte distribution width (RBC) [Ratio] 16.4 % High 11.5-15.0 [facility] Comment on above: Order Comment: Speci men Type: BLOOD SPECIMENOrdering Facility: [facility] Address: [address] [place] [address] Performed By: #### 5 8410-2 ####[facility]ORATORYCLIA [id number] [address] Hematocrit (Bld) [Volume fraction] 30.3 % Low 39.0-51.0 [facility] Comment on above: Order Comment: Speci men Type: BLOOD SPECIMENOrdering Facility: [facility] Address: [address] [place] [address] Performed By: #### 5 8410-2 ####[facility]ATORYCLIA [id number] [address] Hemoglobin (Bld) [Mass/Vol] 9.2 g/dL Low 13.0-17.0 [facility] Comment on above: Order Comment: Speci men Type: BLOOD SPECIMENOrdering Facility: [facility] Address: [address] [place] [address] Performed By: #### 5 8410-2 ####[facility]ORATORYCLIA [id number] [address] MCH (RBC) [Entitic mass] 28.3 pg Normal 26.0-34.0 [facility] Comment on above: Order Comment: Speci men Type: BLOOD SPECIMENOrdering Facility: [facility] Address: [address] [place] [address] Performed By: #### 5 8410-2 ####[facility]ORATORYCLIA [id number] [address] [place] MCHC (RBC) [Mass/Vol] 30.4 g/dL Low 30.5-36.0 [facility] Comment on above: Order Comment: Speci men Type: BLOOD SPECIMENOrdering Facility: [facility] Address: [address] [address] Performed By: #### 5 8410-2 ####[facility]ORATORYCLIA [id number] [address] [place] [facility] MCV (RBC) [Entitic vol] 93.2 fL Normal 80.0-100.0 [facility] Comment on above: Order Comment: Speci men Type: BLOOD SPECIMENOrdering Facility: [facility] Address: [address] [place] [address] Performed By: #### 5 8410-2 ####[facility]ORATORYCLIA [id number] [address] [place] Nucleated RBC (Bld) [#/Vol] 10*3/uL Normal <0.01 [facility] Comment on above: Order Comment: Speci men Type: BLOOD SPECIMENOrdering Facility: [facility] Address: [address] [address] Performed By: #### 5 8410-2 ####[facility]ORATORYCLIA [id number] [address] Platelet mean volume (Bld) [Entitic vol] 9.9 fL Normal 9.0-12.7 [facility] Comment on above: Order Comment: Speci men Type: BLOOD SPECIMENOrdering Facility: [facility] Address: [address] [place] [address] Performed By: #### 5 8410-2 ####[facility]ATORYCLIA [id number] [address] [place] Platelets (Bld) [#/Vol] 381 10*3/uL Normal 150-400 [facility] Comment on above: Order Comment: Speci men Type: BLOOD SPECIMENOrdering Facility: [facility] Address: [address] [place] [address] Performed By: #### 5 8410-2 ####[facility]ORATORYCLIA [id number] [place] [address] [place] RBC (Bld) [#/Vol] 3.25 10*6/uL Low 4.20-6.00 [facility] Comment on above: Order Comment: Speci men Type: BLOOD SPECIMENOrdering Facility: [facility] Address: [address] [place] [address] Performed By: #### 5 8410-2 ####[facility]ORATORYCLIA [id number] [address] OF [facility] WBC (Bld) [#/Vol] 8.80 10*3/uL Normal 3.70-11.00 [facility] Comment on above: Order Comment: Speci men Type: BLOOD SPECIMENOrdering Facility: [facility] Address: [address] [place] [address] Performed By: #### 5 8410-2 ####[facility]ORATORYCLIA [id number] [address] [place] Magnesium SerPl-mCncon 07-15 Magnesium [Mass/Vol] 2.2 mg/dL Normal 1.7-2.3 [facility] Comment on above: Order Comment: Speci men Type: BLOOD SPECIMENOrdering Facility: [facility] Address: [address] [place] [address] Performed By: #### 2 4321-2, 80971-6, 2777-1 ####[facility]ATORYCLIA [id number] [place] [address] [place] NURSING PROGon 07-15-2021 NURSING PROG Normal [facility] NURSING PROG Normal [facility] NURSING PROG Normal [facility] NUTRITIONon 07-15-2021 NUTRITION Normal [facility] Phosphate SerPl-mCncon 07-15 Phosphate [Mass/Vol] 3.4 mg/dL Normal 2.7-4.8 [facility] Comment on above: Order Comment: Speci men Type: BLOOD SPECIMENOrdering Facility: [facility] Address: [address] [place] [address] Performed By: #### 2 4321-2, 43918-5, 2777-1 ####[facility]ORATORYCLIA [id number] [place] [address] [facility] [place] THERAPY NTon 07-15-2021 THERAPY NT Normal [facility] US DVT UPPER LTon 07-15-2021 US DVT UPPER LT Normal [facility] XR CHEST 1V FRONTALon 2021 XR CHEST 1V FRONTAL Normal [facility] aPTT PPPon 07-15-2021 aPTT Coag (PPP) [Time] 59.9 s High 23.0-32.4 [facility] Comment on above: Order Comment: Speci men Type: BLOOD SPECIMENOrdering Facility: [facility] Address: [address] [place] [address] Performed By: #### 1 4979-9 ####[facility]ORATORYCLIA [id number] [place] [address] [place] Basic metabolic 2000 panelon 07-14-2021 Anion gap [Moles/Vol] 9 mmol/L Normal 9-18 [facility] Comment on above: Order Comment: Speci men Type: BLOOD SPECIMENOrdering Facility: [facility] Address: [address] [place] [address] Performed By: #### 1 9123-9, 2777-, 12469-2 ####[facility]ATORYCLIA [id number] [place] [address] [place] Calcium [Mass/Vol] 8.5 mg/dL Normal 8.5-10.2 [facility] Comment on above: Order Comment: Speci men Type: BLOOD SPECIMENOrdering Facility: [facility] Address: [address] [place] [address] Performed By: #### 1 9123-9, 2777-1, 74731-8 ####[facility]ORATORYCLIA [id number] [place] [address] [place] Chloride [Moles/Vol] 99 mmol/L Normal 97-105 [facility] Comment on above: Order Comment: Speci men Type: BLOOD SPECIMENOrdering Facility: [facility] Address: [address] [place] [address] Performed By: #### 1 9123-9, 2777, 17671-5 ####[facility]ATORYCLIA [id number] [address] OF [facility] CO2 [Moles/Vol] 31 mmol/L High 22-30 [facility] Comment on above: Order Comment: Speci men Type: BLOOD SPECIMENOrdering Facility: [facility] Address: [address] [place] [address] Performed By: #### 1 9123-9, 27711-04, ####[facility] [id number] [address] Creatinine [Mass/Vol] 0.74 mg/dL Normal 0.73-1.22 [facility] Comment on above: Order Comment: Speci men Type: BLOOD SPECIMENOrdering Facility: [facility] Address: [address] [place] [address] Performed By: #### 1 9123-9, 2776-05, ####[facility]CLIA [id number] [address] ESTIMATED GLOMERULAR FILTRATION RATE 98 mL/min/1.73m??? Normal >=60 [facility] Comment on above: Order Comment: Speci men Type: BLOOD SPECIMENOrdering Facility: [facility] Address: [address] [place] [address] Result Comment: Luzmaria mated Glomerular Filtration Rate [...] GFR. Performed By: #### 1 9123-9, 2777, 49895-2 ####[facility]ATORYCLIA [id number] [place] [address] [place] Glucose [Mass/Vol] 117 mg/dL High 74-99 [facility] Comment on above: Order Comment: Speci men Type: BLOOD SPECIMENOrdering Facility: [facility] Address: [address] [place] [address] Result Comment: The [place] [employer] (ADA) provides guidance for cutoff [...] Standards of Medical Care in Diabetes 2016, [place] [employer]. Diabetes Care. 2016.39(Suppl 1). Performed By: #### 1 9123-9, 2777-, 33811-4 ####[facility]IA [id number] [place] [address] [place] Potassium [Moles/Vol] 3.7 mmol/L Normal 3.7-5.1 [facility] Comment on above: Order Comment: Johni francia Type: BLOOD SPECIMENOrdering Facility: [facility] Address: [address] [place] [address] Performed By: #### 1 9123-9, 2777-, 31126-7 ####[facility]ATORYCLIA [id number] [place] [address] [place] Sodium [Moles/Vol] 139 mmol/L Normal 136-144 [facility] Comment on above: Order Comment: Johni men Type: BLOOD SPECIMENOrdering Facility: [facility] Address: [address] [place] [address] Performed By: #### 1 9123-9, 2777-, 27829-2 ####[facility]ATORYCLIA [id number] [address] [place] [facility] Urea nitrogen [Mass/Vol] 16 mg/dL Normal 9-24 [facility] Comment on above: Order Comment: Speci men Type: BLOOD SPECIMENOrdering Facility: [facility] Address: [address] [place] [address] Performed By: #### 1 9123-9, 2777-1, 39107-7 ####[facility]ATORYCLIA [id number] [address] CBC panel Auto (Bld)on 07-14 Erythrocyte distribution width (RBC) [Ratio] 16.2 % High 11.5-15.0 [facility] Comment on above: Order Comment: Speci men Type: BLOOD SPECIMENOrdering Facility: [facility] Address: [address] [place] [address] Performed By: #### 5 8410-2 ####[facility]ATORYCLIA [id number] [address] Hematocrit (Bld) [Volume fraction] 29.7 % Low 39.0-51.0 [facility] Comment on above: Order Comment: Speci men Type: BLOOD SPECIMENOrdering Facility: [facility] Address: [address] [place] [address] Performed By: #### 5 8410-2 ####[facility]ATORYCLIA [id number] [address] Hemoglobin (Bld) [Mass/Vol] 8.8 g/dL Low 13.0-17.0 [facility] Comment on above: Order Comment: Speci men Type: BLOOD SPECIMENOrdering Facility: [facility] Address: [address] [place] [address] Performed By: #### 5 8410-2 ####[facility]ATORYCLIA [id number] [address] [place] MCH (RBC) [Entitic mass] 27.5 pg Normal 26.0-34.0 [facility] Comment on above: Order Comment: Speci men Type: BLOOD SPECIMENOrdering Facility: [facility] Address: [address] [place] [address] Performed By: #### 5 8410-2 ####[facility]ATORYCLIA [id number] [address] MCHC (RBC) [Mass/Vol] 29.6 g/dL Low 30.5-36.0 [facility] Comment on above: Order Comment: Speci men Type: BLOOD SPECIMENOrdering Facility: [facility] Address: [address] [place] [address] Performed By: #### 5 8410-2 ####[facility]ATORYCLIA [id number] [address] [place] MCV (RBC) [Entitic vol] 92.8 fL Normal 80.0-100.0 [facility] Comment on above: Order Comment: Speci men Type: BLOOD SPECIMENOrdering Facility: [facility] Address: [address] [place] [address] Performed By: #### 5 8410-2 ####[facility]ATORYCLIA [id number] [address] Nucleated RBC (Bld) [#/Vol] 10*3/uL Normal <0.01 [facility] Comment on above: Order Comment: Speci men Type: BLOOD SPECIMENOrdering Facility: [facility] Address: [address] [place] [address] Performed By: #### 5 8410-2 ####[facility]ATORYCLIA [id number] [address] Platelet mean volume (Bld) [Entitic vol] 9.6 fL Normal 9.0-12.7 [facility] Comment on above: Order Comment: Speci men Type: BLOOD SPECIMENOrdering Facility: [facility] Address: [address] [place] [address] Performed By: #### 5 8410-2 ####[facility]ATORYCLIA [id number] [address] STATES OF [facility] Platelets (Bld) [#/Vol] 354 10*3/uL Normal 150-400 [facility] Comment on above: Order Comment: Speci men Type: BLOOD SPECIMENOrdering Facility: [facility] Address: [address] [place] [address] Performed By: #### 5 8410-2 ####[facility]ATORYCLIA [id number] [place] [address] [place] RBC (Bld) [#/Vol] 3.20 10*6/uL Low 4.20-6.00 [facility] Comment on above: Order Comment: Speci men Type: BLOOD SPECIMENOrdering Facility: [facility] Address: [address] [place] [address] Performed By: #### 5 8410-2 ####[facility]ATORYCLIA [id number] [address] WBC (Bld) [#/Vol] 9.41 10*3/uL Normal 3.70-11.00 [facility] Comment on above: Order Comment: Speci men Type: BLOOD SPECIMENOrdering Facility: [facility] Address: [address] [place] [address] Performed By: #### 5 8410-2 ####[facility]ATORYCLIA [id number] [address] CONSULT PROGon 07-14-2021 CONSULT PROG Normal [facility] Magnesium SerPl-mCncon 07-14 Magnesium [Mass/Vol] 2.2 mg/dL Normal 1.7-2.3 [facility] Comment on above: Order Comment: Speci men Type: BLOOD SPECIMENOrdering Facility: [facility] Address: [address] [place] [address] Performed By: #### 1 9123-9, 2777-1, 90546-6 ####[facility]ATORYCLIA [id number] [address] NURSING PROGon 07-14-2021 NURSING PROG Normal [facility] Phosphate SerPl-mCncon 07-14 Phosphate [Mass/Vol] 3.6 mg/dL Normal 2.7-4.8 [facility] Comment on above: Order Comment: Speci men Type: BLOOD SPECIMENOrdering Facility: [facility] Address: [address] [place] [address] Performed By: #### 1 9123-9, 2777-1, 06334-7 ####[facility]ATORYCLIA [id number] [address] aPTT PPPon 07-14-2021 aPTT Coag (PPP) [Time] 62.9 s High 23.0-32.4 [facility] Comment on above: Order Comment: Speci men Type: BLOOD SPECIMENOrdering Facility: [facility] Address: [address] [place] [address] Performed By: #### 1 4979-9 ####[facility]CLIA [id number] [address] aPTT Coag (PPP) [Time] 55.2 s High 23.0-32.4 [facility] Comment on above: Order Comment: Speci men Type: BLOOD SPECIMENOrdering Facility: [facility] Address: [address] [place] [address] Performed By: #### 1 4979-9 ####[facility]ATORYCLIA [id number] [address] [facility] Basic metabolic 2000 panelon 07-13-2021 Anion gap [Moles/Vol] 10 mmol/L Normal 9-18 [facility] Comment on above: Order Comment: Speci men Type: BLOOD SPECIMENOrdering Facility: [facility] Address: [address] [place] [address] Performed By: #### 1 9123-9, 2777-1, 84832-4 ####[facility]ATORYCLIA [id number] [address] [place] Calcium [Mass/Vol] 8.5 mg/dL Normal 8.5-10.2 [facility] Comment on above: Order Comment: Speci men Type: BLOOD SPECIMENOrdering Facility: [facility] Address: [address] [place] [address] Performed By: #### 1 9123-9, 2777-1, 93793-8 ####[facility]ATORYCLIA [id number] [place] [address] [place] Chloride [Moles/Vol] 98 mmol/L Normal 97-105 [facility] Comment on above: Order Comment: Speci men Type: BLOOD SPECIMENOrdering Facility: [facility] Address: [address] [place] [address] Performed By: #### 1 9123-9, 27711-04, 06215-4 ####[facility]ATORYCLIA [id number] [address] [place] CO2 [Moles/Vol] 32 mmol/L High 22-30 [facility] Comment on above: Order Comment: Speci men Type: BLOOD SPECIMENOrdering Facility: [facility] Address: [address] [place] [address] Performed By: #### 1 9123-9, 27711-04, 71185-3 ####[facility]ATORYCLIA [id number] [address] [place] Creatinine [Mass/Vol] 0.75 mg/dL Normal 0.73-1.22 [facility] Comment on above: Order Comment: Speci men Type: BLOOD SPECIMENOrdering Facility: [facility] Address: [address] [place] [address] Performed By: #### 1 9123-9, 27711-04, 59579-3 ####[facility]ATORYCLIA [id number] [address] [place] ESTIMATED GLOMERULAR FILTRATION RATE 98 mL/min/1.73m??? Normal >=60 [facility] Comment on above: Order Comment: Speci men Type: BLOOD SPECIMENOrdering Facility: [facility] Address: [address] [id number] Result Comment: Luzmaria mated Glomerular Filtration Rate [...] GFR. Performed By: #### 1 9123-9, 2777-1, 26361-8 ####[facility]CLIA [id number] [place] [address] [place] Glucose [Mass/Vol] 118 mg/dL High 74-99 [facility] Comment on above: Order Comment: Shira feldman Type: BLOOD SPECIMENOrdering Facility: [facility] Address: [address] [address] Result Comment: The [place] [employer] (ADA) provides guidance for cutoff [...] Standards of Medical Care in Diabetes 2016, [place] [employer]. Diabetes Care. 2016.39(Suppl 1). Performed By: #### 1 9123-9, 2777-1, 15211-7 ####[facility]ATORYCLIA [id number] [place] [address] [place] Potassium [Moles/Vol] 3.6 mmol/L Low 3.7-5.1 [facility] Comment on above: Order Comment: Shira [facility] Type: BLOOD SPECIMENOrdering Facility: [facility] Address: [address] Performed By: #### 1 9123-9, 2777-1, 67588-4 ####[facility]ATORYCLIA [id number] [address] [place] [facility] Sodium [Moles/Vol] 140 mmol/L Normal 136-144 [facility] Comment on above: Order Comment: Speci men Type: BLOOD SPECIMENOrdering Facility: [facility] Address: [address] [place] [address] Performed By: #### 1 9123-9, 2777-, 10770-9 ####[facility]ATORYCLIA [id number] [address] STATES [facility] Urea nitrogen [Mass/Vol] 15 mg/dL Normal 9-24 [facility] Comment on above: Order Comment: Speci men Type: BLOOD SPECIMENOrdering Facility: [facility] Address: [address] [place] [address] Performed By: #### 1 9123-9, 2777, 69753-1 ####[facility]ATORYCLIA [id number] [address] [place] CASE MANAGEMon 07-13-2021 CASE MANAGEM Normal [facility] CBC panel Auto (Bld)on 07-13 Erythrocyte distribution width (RBC) [Ratio] 16.2 % High 11.5-15.0 [facility] Comment on above: Order Comment: Speci men Type: BLOOD SPECIMENOrdering Facility: [facility] Address: [address] [place] [address] Performed By: #### 5 8410-2 ####[facility]ATORYCLIA [id number] [address] Hematocrit (Bld) [Volume fraction] 29.5 % Low 39.0-51.0 [facility] Comment on above: Order Comment: Speci men Type: BLOOD SPECIMENOrdering Facility: [facility] Address: [address] [place] [address] Performed By: #### 5 8410-2 ####[facility]ATORYCLIA [id number] [address] STATES [facility] Hemoglobin (Bld) [Mass/Vol] 8.9 g/dL Low 13.0-17.0 [facility] Comment on above: Order Comment: Speci men Type: BLOOD SPECIMENOrdering Facility: [facility] Address: [address] [place] [address] Performed By: #### 5 8410-2 ####[facility]ATORYCLIA [id number] [address] MCH (RBC) [Entitic mass] 27.8 pg Normal 26.0-34.0 [facility] Comment on above: Order Comment: Speci men Type: BLOOD SPECIMENOrdering Facility: [facility] Address: [address] [place] [address] Performed By: #### 5 8410-2 ####[facility]ATORYCLIA [id number] [address] MCHC (RBC) [Mass/Vol] 30.2 g/dL Low 30.5-36.0 [facility] Comment on above: Order Comment: Speci men Type: BLOOD SPECIMENOrdering Facility: [facility] Address: [address] [place] [address] Performed By: #### 5 8410-2 ####[facility]ATORYCLIA [id number] [address] OF [facility] MCV (RBC) [Entitic vol] 92.2 fL Normal 80.0-100.0 [facility] Comment on above: Order Comment: Speci men Type: BLOOD SPECIMENOrdering Facility: [facility] Address: [address] [place] [address] Performed By: #### 5 8410-2 ####[facility]ATORYCLIA [id number] [address] [facility] Nucleated RBC (Bld) [#/Vol] 10*3/uL Normal <0.01 [facility] Comment on above: Order Comment: Speci men Type: BLOOD SPECIMENOrdering Facility: [facility] Address: [address] [place] [address] Performed By: #### 5 8410-2 ####[facility]ATORYCLIA [id number] [address] Platelet mean volume (Bld) [Entitic vol] 9.8 fL Normal 9.0-12.7 [facility] Comment on above: Order Comment: Speci men Type: BLOOD SPECIMENOrdering Facility: [facility] Address: [address] [place] [address] Performed By: #### 5 8410-2 ####[facility]ATORYCLIA [id number] [address] [place] Platelets (Bld) [#/Vol] 356 10*3/uL Normal 150-400 [facility] Comment on above: Order Comment: Speci men Type: BLOOD SPECIMENOrdering Facility: [facility] Address: [address] [place] [address] Performed By: #### 5 8410-2 ####[facility]ATORYCLIA [id number] [place] [address] [place] RBC (Bld) [#/Vol] 3.20 10*6/uL Low 4.20-6.00 [facility] Comment on above: Order Comment: Speci men Type: BLOOD SPECIMENOrdering Facility: [facility] Address: [address] [place], [place] [address] Performed By: #### 5 8410-2 ####[facility]ATORYCLIA [id number] [address] [place] WBC (Bld) [#/Vol] 9.20 10*3/uL Normal 3.70-11.00 [facility] Comment on above: Order Comment: Speci men Type: BLOOD SPECIMENOrdering Facility: [facility] Address: [address] [place] [address] Performed By: #### 5 8410-2 ####[facility]ATORYCLIA [id number] [address] CONSULT PROGon 07-13-2021 CONSULT PROG Normal [facility] CONSULT PROG Normal [facility] CONSULT PROG Normal [facility] Magnesium SerPl-mCncon 07-13 Magnesium [Mass/Vol] 2.1 mg/dL Normal 1.7-2.3 [facility] Comment on above: Order Comment: Speci men Type: BLOOD SPECIMENOrdering Facility: [facility] Address: [address] [place] [address] Performed By: #### 1 9123-9, 2777-1, 88668-2 ####[facility]ORYCLIA [id number] [address] Phosphate SerPl-mCncon 07-13 Phosphate [Mass/Vol] 3.7 mg/dL Normal 2.7-4.8 [facility] Comment on above: Order Comment: Speci men Type: BLOOD SPECIMENOrdering Facility: [facility] Address: [address] [place] [address] Performed By: #### 1 9123-9, 2777-1, 82256-4 ####[facility]ATORYCLIA [id number] [address] THERAPY NTon 07-13-2021 THERAPY NT Normal [facility] THERAPY NT Normal [facility] Vancomycin random [Mass/Vol] on 07-13-2021 Vancomycin [Mass/Vol] 31.7 ug/mL High 10.0-20.0 [facility] Comment on above: Order Comment: Speci men Type: BLOOD SPECIMENOrdering Facility: [facility] Address: [address] [place] [address] Result Comment: Refe rence ranges and high/low indicator flags are provided as general guidelines only. The treating physician must determine appropriate target levels/dosing based on the specific clinical situation. Performed By: #### 4 091-5 ####[facility]ATORYCLIA [id number] [address] aPTT PPPon 07-13-2021 aPTT Coag (PPP) [Time] 47.3 s High 23.0-32.4 [facility] Comment on above: Order Comment: Speci men Type: BLOOD SPECIMENOrdering Facility: [facility] Address: [address] [place] [address] Performed By: #### 1 4979-9 ####[facility]ATORYCLIA [id number] [address] aPTT Coag (PPP) [Time] 51.2 s High 23.0-32.4 [facility] Comment on above: Order Comment: Speci men Type: BLOOD SPECIMENOrdering Facility: [facility] Address: [address] [place] [address] Performed By: #### 1 4979-9 ####[facility]ATORYCLIA [id number] [address] aPTT Coag (PPP) [Time] 47.5 s High 23.0-32.4 [facility] Comment on above: Order Comment: Speci men Type: BLOOD SPECIMENOrdering Facility: [facility] Address: [address] [place] [address] Performed By: #### 1 4979-9 ####[facility]ATORYCLIA [id number] [address] [place] Basic metabolic 2000 panelon 07-12-2021 Anion gap [Moles/Vol] 7 mmol/L Low 9-18 [facility] Comment on above: Order Comment: Speci men Type: BLOOD SPECIMENOrdering Facility: [facility] Address: [address] [place] [address] Performed By: #### 1 9123-9, 2777-1, 25314-0 ####[facility]ATORYCLIA [id number] [address] [facility] Calcium [Mass/Vol] 8.3 mg/dL Low 8.5-10.2 [facility] Comment on above: Order Comment: Speci men Type: BLOOD SPECIMENOrdering Facility: [facility] Address: [address] [address] Performed By: #### 1 9123-9, 2771, 89076-8 ####[facility]ATORYCLIA [id number] [place] [address] [place] Chloride [Moles/Vol] 101 mmol/L Normal 97-105 [facility] Comment on above: Order Comment: Speci men Type: BLOOD SPECIMENOrdering Facility: [facility] Address: [address] [place] [address] Performed By: #### 1 9123-9, 27711-04, 82170-0 ####[facility]ATORYCLIA [id number] [address] [place] CO2 [Moles/Vol] 32 mmol/L High 22-30 [facility] Comment on above: Order Comment: Speci men Type: BLOOD SPECIMENOrdering Facility: [facility] Address: [address] [place] [address] Performed By: #### 1 9123-9, 2776-05, 74741-0 ####[facility]ATORYCLIA [id number] [address] [place] Creatinine [Mass/Vol] 0.70 mg/dL Low 0.73-1.22 [facility] Comment on above: Order Comment: Speci men Type: BLOOD SPECIMENOrdering Facility: [facility] Address: [address] [place] [address] Performed By: #### 1 9123-9, 27711-04, 84795-1 ####[facility]ORATORYCLIA [id number] [address] ESTIMATED GLOMERULAR FILTRATION RATE 100 mL/min/1.73m??? Normal >=60 [facility] Comment on above: Order Comment: Speci men Type: BLOOD SPECIMENOrdering Facility: [facility] Address: [address] [place] [address] Result Comment: Luzmaria mated Glomerular Filtration Rate [...] GFR. Performed By: #### 1 9123-9, 2777-1, 31468-1 ####[facility]ORATORYCLIA [id number] [place] [address] [place] Glucose [Mass/Vol] 104 mg/dL High 74-99 [facility] Comment on above: Order Comment: Speci men Type: BLOOD SPECIMENOrdering Facility: [facility] Address: [address] [place] [address] Result Comment: The [place] [employer] (ADA) provides guidance for cutoff [...] Standards of Medical Care in Diabetes 2016, [place] [employer]. Diabetes Care. 2016.39(Suppl 1). Performed By: #### 1 9123-9, 2777-, 61252-0 ####[facility] LABORATORYIA [id number] [place] [address] [place] Potassium [Moles/Vol] 3.7 mmol/L Normal 3.7-5.1 [facility] Comment on above: Order Comment: Johni men Type: BLOOD SPECIMENOrdering Facility: [facility] Address: [address] [id number] Performed By: #### 1 9123-9, 2777-1, 91716-6 ####[facility]ORATORYCLIA [id number] [address] Sodium [Moles/Vol] 140 mmol/L Normal 136-144 [facility] Comment on above: Order Comment: Speci men Type: BLOOD SPECIMENOrdering Facility: [facility] Address: [address] [place] [address] Performed By: #### 1 9123-9, 2777-1, 60478-8 ####[facility]ORATORYCLIA [id number] [address] [place] [facility] Urea nitrogen [Mass/Vol] 12 mg/dL Normal 9-24 [facility] Comment on above: Order Comment: Speci men Type: BLOOD SPECIMENOrdering Facility: [facility] Address: [address] [place] [address] Performed By: #### 1 9123-9, 2777-1, 95585-0 ####[facility]ORATORYCLIA [id number] [address] CBC panel Auto (Bld)on 07-12 Erythrocyte distribution width (RBC) [Ratio] 16.1 % High 11.5-15.0 [facility] Comment on above: Order Comment: Speci men Type: BLOOD SPECIMENOrdering Facility: [facility] Address: [address] [place] [address] Performed By: #### 5 8410-2 ####[facility]ORATORYCLIA [id number] [address] [place] HEALTH Hematocrit (Bld) [Volume fraction] 28.2 % Low 39.0-51.0 [facility] Comment on above: Order Comment: Speci men Type: BLOOD SPECIMENOrdering Facility: [facility] Address: [address] [place] [address] Performed By: #### 5 8410-2 ####[facility]ORATORYCLIA [id number] [address] [place] OF [facility] Hemoglobin (Bld) [Mass/Vol] 8.5 g/dL Low 13.0-17.0 [facility] Comment on above: Order Comment: Speci men Type: BLOOD SPECIMENOrdering Facility: [facility] Address: [address] [place] [address] Performed By: #### 5 8410-2 ####[facility]ATORYCLIA [id number] [address] MCH (RBC) [Entitic mass] 26.8 pg Normal 26.0-34.0 [facility] Comment on above: Order Comment: Speci men Type: BLOOD SPECIMENOrdering Facility: [facility] Address: [address] [place] [address] Performed By: #### 5 8410-2 ####[facility]ATORYCLIA [id number] [address] MCHC (RBC) [Mass/Vol] 30.1 g/dL Low 30.5-36.0 [facility] Comment on above: Order Comment: Speci men Type: BLOOD SPECIMENOrdering Facility: [facility] Address: [address] [place] [address] Performed By: #### 5 8410-2 ####[facility]ATORYCLIA [id number] [address] MCV (RBC) [Entitic vol] 89.0 fL Normal 80.0-100.0 [facility] Comment on above: Order Comment: Speci men Type: BLOOD SPECIMENOrdering Facility: [facility] Address: [address] [place] [address] Performed By: #### 5 8410-2 ####[facility]ATORYCLIA [id number] [address] Nucleated RBC (Bld) [#/Vol] 10*3/uL Normal <0.01 [facility] Comment on above: Order Comment: Speci men Type: BLOOD SPECIMENOrdering Facility: [facility] Address: [address] [place] [address] Performed By: #### 5 8410-2 ####[facility]ATORYCLIA [id number] [address] Platelet mean volume (Bld) [Entitic vol] 9.6 fL Normal 9.0-12.7 [facility] Comment on above: Order Comment: Speci men Type: BLOOD SPECIMENOrdering Facility: [facility] Address: [address] [place] [address] Performed By: #### 5 8410-2 ####[facility]ATORYCLIA [id number] [place] [address] [place] Platelets (Bld) [#/Vol] 340 10*3/uL Normal 150-400 [facility] Comment on above: Order Comment: Speci men Type: BLOOD SPECIMENOrdering Facility: [facility] Address: [address] [place] [address] Performed By: #### 5 8410-2 ####[facility]ATORYCLIA [id number] [place] [address] [place] RBC (Bld) [#/Vol] 3.17 10*6/uL Low 4.20-6.00 [facility] Comment on above: Order Comment: Speci men Type: BLOOD SPECIMENOrdering Facility: [facility] Address: [address] [place] [address] Performed By: #### 5 8410-2 ####[facility]ATORYCLIA [id number] [address] [place] WBC (Bld) [#/Vol] 8.66 10*3/uL Normal 3.70-11.00 [facility] Comment on above: Order Comment: Speci men Type: BLOOD SPECIMENOrdering Facility: [facility] Address: [address] [place] [address] Performed By: #### 5 8410-2 ####[facility]ATORYCLIA [id number] [address] [place] CONSULTon 07-12-2021 CONSULT Normal [facility] CONSULT PROGon 07-12-2021 CONSULT PROG Normal [facility] Magnesium SerPl-mCncon 07-12 Magnesium [Mass/Vol] 2.1 mg/dL Normal 1.7-2.3 [facility] Comment on above: Order Comment: Speci men Type: BLOOD SPECIMENOrdering Facility: [facility] Address: [address] [place] [address] Performed By: #### 1 9123-9, 2777-1, 35091-5 ####[facility]ATORYCLIA [id number] [address] OF [facility] NURSING PROGon 07-12-2021 NURSING PROG Normal [facility] Phosphate SerPl-mCncon 07-12 Phosphate [Mass/Vol] 3.1 mg/dL Normal 2.7-4.8 [facility] Comment on above: Order Comment: Speci men Type: BLOOD SPECIMENOrdering Facility: [facility] Address: [address] [place] [address] Performed By: #### 1 9123-9, 2777-, 73188-8 ####[facility]ATORYCLIA [id number] [address] [place] THERAPY NTon 07-12-2021 THERAPY NT Normal [facility] aPTT PPPon 07-12-2021 aPTT Coag (PPP) [Time] 49.5 s High 23.0-32.4 [facility] Comment on above: Order Comment: Speci men Type: BLOOD SPECIMENOrdering Facility: [facility] Address: [address] [place] [address] Performed By: #### 1 4979-9 ####[facility]ATORYCLIA [id number] [address] [place] aPTT Coag (PPP) [Time] 68.0 s High 23.0-32.4 [facility] Comment on above: Order Comment: Speci men Type: BLOOD SPECIMENOrdering Facility: [facility] Address: [address] [place] [address] Performed By: #### 1 4979-9 ####[facility]ATORYCLIA [id number] [address] [place] aPTT Coag (PPP) [Time] 80.0 s High 23.0-32.4 [facility] Comment on above: Order Comment: Speci men Type: BLOOD SPECIMENOrdering Facility: [facility] Address: [address] [place] [address] Performed By: #### 1 4979-9 ####[facility]ATORYCLIA [id number] [address] OF [facility] CASE MGT INIT ASSESon 2021 CASE MGT INIT ASSES Normal [facility] CBC panel Auto (Bld)on 07-11 Erythrocyte distribution width (RBC) [Ratio] 16.3 % High 11.5-15.0 [facility] Comment on above: Order Comment: Speci men Type: BLOOD SPECIMENOrdering Facility: [facility] Address: [address] [place] [address] Performed By: #### 5 8410-2 ####[facility]ATORYCLIA [id number] [address] Hematocrit (Bld) [Volume fraction] 28.3 % Low 39.0-51.0 [facility] Comment on above: Order Comment: Speci men Type: BLOOD SPECIMENOrdering Facility: [facility] Address: [address] [place] [address] Performed By: #### 5 8410-2 ####[facility]ATORYCLIA [id number] [address] [place] Hemoglobin (Bld) [Mass/Vol] 8.8 g/dL Low 13.0-17.0 [facility] Comment on above: Order Comment: Speci men Type: BLOOD SPECIMENOrdering Facility: [facility] Address: [address] [place] [address] Performed By: #### 5 8410-2 ####[facility]ORATORYCLIA [id number] [address] [place] [facility] MCH (RBC) [Entitic mass] 27.4 pg Normal 26.0-34.0 [facility] Comment on above: Order Comment: Speci men Type: BLOOD SPECIMENOrdering Facility: [facility] Address: [address] [place] [address] Performed By: #### 5 8410-2 ####[facility]ATORYCLIA [id number] [address] [place] [facility] MCHC (RBC) [Mass/Vol] 31.1 g/dL Normal 30.5-36.0 [facility] Comment on above: Order Comment: Speci men Type: BLOOD SPECIMENOrdering Facility: [facility] Address: [address] [place] [address] Performed By: #### 5 8410-2 ####[facility]ATORYCLIA [id number] [address] [place] MCV (RBC) [Entitic vol] 88.2 fL Normal 80.0-100.0 [facility] Comment on above: Order Comment: Speci men Type: BLOOD SPECIMENOrdering Facility: [facility] Address: [address] [place] [address] Performed By: #### 5 8410-2 ####[facility]ATORYCLIA [id number] [address] Nucleated RBC (Bld) [#/Vol] 10*3/uL Normal <0.01 [facility] Comment on above: Order Comment: Speci men Type: BLOOD SPECIMENOrdering Facility: [facility] Address: [address] [place] [address] Performed By: #### 5 8410-2 ####[facility]ATORYCLIA [id number] [address] Platelet mean volume (Bld) [Entitic vol] 9.7 fL Normal 9.0-12.7 [facility] Comment on above: Order Comment: Speci men Type: BLOOD SPECIMENOrdering Facility: [facility] Address: [address] [place] [address] Performed By: #### 5 8410-2 ####[facility]ATORYCLIA [id number] [address] [place] [facility] Platelets (Bld) [#/Vol] 315 10*3/uL Normal 150-400 [facility] Comment on above: Order Comment: Speci men Type: BLOOD SPECIMENOrdering Facility: [facility] Address: [address] [place] [address] Performed By: #### 5 8410-2 ####[facility]ATORYCLIA [id number] [place] [address] [place] RBC (Bld) [#/Vol] 3.21 10*6/uL Low 4.20-6.00 [facility] Comment on above: Order Comment: Speci men Type: BLOOD SPECIMENOrdering Facility: [facility] Address: [address] [place] [address] Performed By: #### 5 8410-2 ####[facility]ATORYCLIA [id number] [address] WBC (Bld) [#/Vol] 9.18 10*3/uL Normal 3.70-11.00 [facility] Comment on above: Order Comment: Speci men Type: BLOOD SPECIMENOrdering Facility: [facility] Address: [address] [place] [address] Performed By: #### 5 8410-2 ####[facility]ATORYCLIA [id number] [address] [place] CONSULT PROGon 07-11-2021 CONSULT PROG Normal [facility] CT BRAIN WO IVCONon 07-12-19 CT BRAIN WO IVCON Normal [facility] Magnesium SerPl-mCncon 07-11 Magnesium [Mass/Vol] 2.1 mg/dL Normal 1.7-2.3 [facility] Comment on above: Order Comment: Speci men Type: BLOOD SPECIMENOrdering Facility: [facility] Address: [address] [place] [address] Performed By: #### 1 9123-9, 2777-1 ####[facility]ATORYCLIA [id number] [address] NURSING PROGon 07-11-2021 NURSING PROG Normal [facility] NURSING PROG Normal [facility] Phosphate SerPl-mCncon 07-11 Phosphate [Mass/Vol] 3.4 mg/dL Normal 2.7-4.8 [facility] Comment on above: Order Comment: Speci men Type: BLOOD SPECIMENOrdering Facility: [facility] Address: [address] [place] [address] Performed By: #### 1 9123-9, 2777-1 ####[facility]ATORYCLIA [id number] [address] THERAPY NTon 07-11-2021 THERAPY NT Normal [facility] Vancomycin random [Mass/Vol] on 07-11-2021 Vancomycin [Mass/Vol] 28.6 ug/mL High 10.0-20.0 [facility] Comment on above: Order Comment: Speci men Type: BLOOD SPECIMENOrdering Facility: [facility] Address: [address] [place] [address] Result Comment: Refe rence ranges and high/low indicator flags are provided as general guidelines only. The treating physician must determine appropriate target levels/dosing based on the specific clinical situation. Performed By: #### 4 091-5 ####[facility]ATORYCLIA [id number] [address] aPTT PPPon 07-11-2021 aPTT Coag (PPP) [Time] 62.0 s High 23.0-32.4 [facility] Comment on above: Order Comment: Speci men Type: BLOOD SPECIMENOrdering Facility: [facility] Address: [address] [place] [address] Performed By: #### 1 4979-9 ####[facility]ATORYCLIA [id number] [address] aPTT Coag (PPP) [Time] 52.7 s High 23.0-32.4 [facility] Comment on above: Order Comment: Speci men Type: BLOOD SPECIMENOrdering Facility: [facility] Address: [address] [place] [address] Performed By: #### 1 4979-9 ####[facility]ATORYCLIA [id number] [address] [place] aPTT Coag (PPP) [Time] 29.9 s Normal 23.0-32.4 [facility] Comment on above: Order Comment: Speci men Type: BLOOD SPECIMENOrdering Facility: [facility] Address: [address] [place] [address] Performed By: #### 1 4979-9 ####[facility]ATORYCLIA [id number] [place] [address] [place] Basic metabolic 2000 panelon 07-10-2021 Anion gap [Moles/Vol] 14 mmol/L Normal 9-18 [facility] Comment on above: Order Comment: Speci men Type: BLOOD SPECIMENOrdering Facility: [facility] Address: [address] [place] [address] Performed By: #### 1 9123-9, 2777-1, 82840-5 ####[facility]NACLIA [id number] [place] [address] [place] Calcium [Mass/Vol] 8.5 mg/dL Normal 8.5-10.2 [facility] Comment on above: Order Comment: Speci men Type: BLOOD SPECIMENOrdering Facility: [facility] Address: [address] [place] [address] Performed By: #### 1 9123-9, 2777-1, 88528-5 ####[facility]ATORYCLIA [id number] [address] [place] Chloride [Moles/Vol] 100 mmol/L Normal 97-105 [facility] Comment on above: Order Comment: Speci men Type: BLOOD SPECIMENOrdering Facility: [facility] Address: [address] [place] [address] Performed By: #### 1 9123-9, 27771, 69586-1 ####[facility]IANACLIA [id number] [place] [address] [place] [facility] CO2 [Moles/Vol] 27 mmol/L Normal 22-30 [facility] Comment on above: Order Comment: Speci men Type: BLOOD SPECIMENOrdering Facility: [facility] Address: [address] [place] [address] Performed By: #### 1 9123-9, 27711-04, 05444-3 ####[facility]IANACLIA [id number] [address] [place] [facility] Creatinine [Mass/Vol] 0.66 mg/dL Low 0.73-1.22 [facility] Comment on above: Order Comment: Speci men Type: BLOOD SPECIMENOrdering Facility: [facility] Address: [address] [place] [address] Performed By: #### 1 9123-9, 27711-04, 85251-2 ####[facility] CENTERIA [id number] [address] ESTIMATED GLOMERULAR FILTRATION RATE 102 mL/min/1.73m??? Normal >=60 [facility] Comment on above: Order Comment: Speci men Type: BLOOD SPECIMENOrdering Facility: [facility] Address: [address] [place] [address] Result Comment: Luzmaria mated Glomerular Filtration Rate [...] GFR. Performed By: #### 1 9123-9, 2777-1, 63983-7 ####[facility]ORATORYCLIA [id number] [address] [place] Glucose [Mass/Vol] 93 mg/dL Normal 74-99 [facility] Comment on above: Order Comment: Speci men Type: BLOOD SPECIMENOrdering Facility: [facility] Address: [address] [place], [place] [phone] Result Comment: The [place] [employer] (ADA) provides guidance for cutoff [...] Standards of Medical Care in Diabetes 2016, [place] [employer]. Diabetes Care. 2016.39(Suppl 1). Performed By: #### 1 9123-9, 2777-, 24376-5 ####[facility]ORATORYCLIA [id number] [place] [address] [place] Potassium [Moles/Vol] 3.5 mmol/L Low 3.7-5.1 [facility] Comment on above: Order Comment: Shira feldman Type: BLOOD SPECIMENOrdering Facility: [facility] Address: [address] [place], [place] [id number] Performed By: #### 1 9123-9, 2777-, 08292-5 ####[facility]ORATORYCLIA [id number] [place] [address] [place] Sodium [Moles/Vol] 141 mmol/L Normal 136-144 [facility] Comment on above: Order Comment: Johni men Type: BLOOD SPECIMENOrdering Facility: [facility] Address: [address] [place] [id number] Performed By: #### 1 9123-9, 2777-, 58129-9 ####[facility]ATORYCLIA [id number] [place] [address] [place] Urea nitrogen [Mass/Vol] 11 mg/dL Normal 9-24 [facility] Comment on above: Order Comment: Speci men Type: BLOOD SPECIMENOrdering Facility: [facility] Address: [address] [place] [address] Performed By: #### 1 9123-9, 2777-1, 03811-0 ####[facility]ATORYCLIA [id number] [address] [place] [facility] CBC panel Auto (Bld)on 07-10 Erythrocyte distribution width (RBC) [Ratio] 16.2 % High 11.5-15.0 [facility] Comment on above: Order Comment: Speci men Type: BLOOD SPECIMENOrdering Facility: [facility] Address: [address] [place] [address] Performed By: #### 5 8410-2 ####[facility]ATORYCLIA [id number] [address] [place] [facility] Hematocrit (Bld) [Volume fraction] 30.6 % Low 39.0-51.0 [facility] Comment on above: Order Comment: Speci men Type: BLOOD SPECIMENOrdering Facility: [facility] Address: [address] [place] [address] Performed By: #### 5 8410-2 ####[facility]ATORYCLIA [id number] [address] Hemoglobin (Bld) [Mass/Vol] 9.6 g/dL Low 13.0-17.0 [facility] Comment on above: Order Comment: Speci men Type: BLOOD SPECIMENOrdering Facility: [facility] Address: [address] [place] [address] Performed By: #### 5 8410-2 ####[facility]ATORYCLIA [id number] [address] [place] [facility] MCH (RBC) [Entitic mass] 28.3 pg Normal 26.0-34.0 [facility] Comment on above: Order Comment: Speci men Type: BLOOD SPECIMENOrdering Facility: [facility] Address: [address] [place] [address] Performed By: #### 5 8410-2 ####[facility]ATORYCLIA [id number] [address] MCHC (RBC) [Mass/Vol] 31.4 g/dL Normal 30.5-36.0 [facility] Comment on above: Order Comment: Speci men Type: BLOOD SPECIMENOrdering Facility: [facility] Address: [address] [place] [address] Performed By: #### 5 8410-2 ####[facility]ATORYCLIA [id number] [address] MCV (RBC) [Entitic vol] 90.3 fL Normal 80.0-100.0 [facility] Comment on above: Order Comment: Speci men Type: BLOOD SPECIMENOrdering Facility: [facility] Address: [address] [place] [address] Performed By: #### 5 8410-2 ####[facility]ATORYCLIA [id number] [address] Nucleated RBC (Bld) [#/Vol] 10*3/uL Normal <0.01 [facility] Comment on above: Order Comment: Speci men Type: BLOOD SPECIMENOrdering Facility: [facility] Address: [address] [place] [address] Performed By: #### 5 8410-2 ####[facility]ATORYCLIA [id number] [address] Platelet mean volume (Bld) [Entitic vol] 9.7 fL Normal 9.0-12.7 [facility] Comment on above: Order Comment: Speci men Type: BLOOD SPECIMENOrdering Facility: [facility] Address: [address] [place] [address] Performed By: #### 5 8410-2 ####[facility]ATORYCLIA [id number] [address] [place] Platelets (Bld) [#/Vol] 306 10*3/uL Normal 150-400 [facility] Comment on above: Order Comment: Speci men Type: BLOOD SPECIMENOrdering Facility: [facility] Address: [address] [place] [address] Performed By: #### 5 8410-2 ####[facility]ATORYCLIA [id number] [place] [address] [place] RBC (Bld) [#/Vol] 3.39 10*6/uL Low 4.20-6.00 [facility] Comment on above: Order Comment: Speci men Type: BLOOD SPECIMENOrdering Facility: [facility] Address: [address] [place] [address] Performed By: #### 5 8410-2 ####[facility]ATORYCLIA [id number] [address] [place] [facility] WBC (Bld) [#/Vol] 9.81 10*3/uL Normal 3.70-11.00 [facility] Comment on above: Order Comment: Speci men Type: BLOOD SPECIMENOrdering Facility: [facility] Address: [address] [place] [address] Performed By: #### 5 8410-2 ####[facility]ATORYCLIA [id number] [address] [place] CONSULTon 07-10-2021 CONSULT Normal [facility] CONSULT Normal [facility] Magnesium SerPl-mCncon 07-10 Magnesium [Mass/Vol] 1.9 mg/dL Normal 1.7-2.3 [facility] Comment on above: Order Comment: Speci men Type: BLOOD SPECIMENOrdering Facility: [facility] Address: [address] [place] [address] Performed By: #### 1 9123-9, 2777-1, 33512-6 ####[facility]ATORYCLIA [id number] [address] [place] NURSING PROGon 07-10-2021 NURSING PROG Normal [facility] NURSING PROG Normal [facility] NUTRITIONon 07-10-2021 NUTRITION Normal [facility] Phosphate SerPl-mCncon 07-10 Phosphate [Mass/Vol] 3.6 mg/dL Normal 2.7-4.8 [facility] Comment on above: Order Comment: Speci men Type: BLOOD SPECIMENOrdering Facility: [facility] Address: [address] [place] [address] Performed By: #### 1 9123-9, 2777-1, 60532-3 ####[facility]ATORYCLIA [id number] [address] [place] US DVT LOWER BILon US DVT LOWER RAINER Normal [facility] aPTT PPPon 07-10-2021 aPTT Coag (PPP) [Time] 28.8 s Normal 23.0-32.4 [facility] Comment on above: Order Comment: Speci men Type: BLOOD SPECIMENOrdering Facility: [facility] Address: [address] [place] [address] Performed By: #### 1 4979-9 ####[facility]ATORYCLIA [id number] [address] aPTT Coag (PPP) [Time] 28.4 s Normal 23.0-32.4 [facility] Comment on above: Order Comment: Speci men Type: BLOOD SPECIMENOrdering Facility: [facility] Address: [address] [place] [address] Performed By: #### 1 4979-9 ####[facility]ATORYCLIA [id number] [address] [place] ALLIED HEALTHon 07-09-2021 ALLIED HEALTH Normal [facility] Basic metabolic 2000 panelon 07-09-2021 Anion gap [Moles/Vol] 9 mmol/L Normal 9-18 [facility] Comment on above: Order Comment: Speci men Type: BLOOD SPECIMENOrdering Facility: [facility] Address: [address] [place] [address] Performed By: #### 1 9123-9, 27711-04, 63537-5 ####[facility]ORATORYCLIA [id number] [place] [address] [place] Calcium [Mass/Vol] 8.3 mg/dL Low 8.5-10.2 [facility] Comment on above: Order Comment: Speci men Type: BLOOD SPECIMENOrdering Facility: [facility] Address: [address] [place] [address] Performed By: #### 1 9123-9, 27711-04, 70390-3 ####[facility]ATORYCLIA [id number] [place] [address] [place] Chloride [Moles/Vol] 100 mmol/L Normal 97-105 [facility] Comment on above: Order Comment: Speci men Type: BLOOD SPECIMENOrdering Facility: [facility] Address: [address] [place] [address] Performed By: #### 1 9123-9, 2776-05, 40621-5 ####[facility]ATORYCLIA [id number] [place] [address] [place] CO2 [Moles/Vol] 29 mmol/L Normal 22-30 [facility] Comment on above: Order Comment: Speci men Type: BLOOD SPECIMENOrdering Facility: [facility] Address: [address] [place] [address] Performed By: #### 1 9123-9, 2776-05, 10694-9 ####[facility]ATORYCLIA [id number] [place] [address] [place] Creatinine [Mass/Vol] 0.61 mg/dL Low 0.73-1.22 [facility] Comment on above: Order Comment: Speci men Type: BLOOD SPECIMENOrdering Facility: [facility] Address: [address] [place] [address] Performed By: #### 1 9123-9, 27711-04, 14856-4 ####[facility]ORATORYCLIA [id number] [place] [address] [place] ESTIMATED GLOMERULAR FILTRATION RATE 104 mL/min/1.73m??? Normal >=60 [facility] Comment on above: Order Comment: Shira feldman Type: BLOOD SPECIMENOrdering Facility: [facility] Address: [address] [place] [address] Result Comment: Luzmaria mated Glomerular Filtration Rate [...] GFR. Performed By: #### 1 9123-9, 2777-1, 77254-9 ####[facility] [id number] [place] [address] [place] Glucose [Mass/Vol] 106 mg/dL High 74-99 [facility] Comment on above: Order Comment: Shira feldman Type: BLOOD SPECIMENOrdering Facility: [facility] Address: [address] [place], [place] [address] Result Comment: The [place] [employer] (ADA) provides guidance for cutoff [...] Standards of Medical Care in Diabetes 2016, [place] [employer]. Diabetes Care. 2016.39(Suppl 1). Performed By: #### 1 9123-9, 2777-1, 43162-6 ####[facility]ORATORYCLIA [id number] [place] [address] [place] Potassium [Moles/Vol] 3.6 mmol/L Low 3.7-5.1 [facility] Comment on above: Order Comment: Speci men Type: BLOOD SPECIMENOrdering Facility: [facility] Address: [address] [place] [address] Performed By: #### 1 9123-9, 2777-, 55121-2 ####[facility]ORATORYCLIA [id number] [address] Sodium [Moles/Vol] 138 mmol/L Normal 136-144 [facility] Comment on above: Order Comment: Speci men Type: BLOOD SPECIMENOrdering Facility: [facility] Address: [address] [place] [address] Performed By: #### 1 9123-9, 27711-04, 98774-2 ####[facility]ATORYCLIA [id number] [address] Urea nitrogen [Mass/Vol] 12 mg/dL Normal 9-24 [facility] Comment on above: Order Comment: Speci men Type: BLOOD SPECIMENOrdering Facility: [facility] Address: [address] [place] [address] Performed By: #### 1 9123-9, 2777, 07458-0 ####[facility]ATORYCLIA [id number] [address] CBC panel Auto (Bld)on 07-09 Erythrocyte distribution width (RBC) [Ratio] 16.2 % High 11.5-15.0 [facility] Comment on above: Order Comment: Speci men Type: BLOOD SPECIMENOrdering Facility: [facility] Address: [address] [place] [address] Performed By: #### 5 8410-2 ####[facility]ATORYCLIA [id number] [address] Hematocrit (Bld) [Volume fraction] 29.0 % Low 39.0-51.0 [facility] Comment on above: Order Comment: Speci men Type: BLOOD SPECIMENOrdering Facility: [facility] Address: [address] [place] [address] Performed By: #### 5 8410-2 ####[facility]ATORYCLIA [id number] [address] Hemoglobin (Bld) [Mass/Vol] 8.8 g/dL Low 13.0-17.0 [facility] Comment on above: Order Comment: Speci men Type: BLOOD SPECIMENOrdering Facility: [facility] Address: [address] [place] [address] Performed By: #### 5 8410-2 ####[facility]ATORYCLIA [id number] [address] MCH (RBC) [Entitic mass] 27.0 pg Normal 26.0-34.0 [facility] Comment on above: Order Comment: Speci men Type: BLOOD SPECIMENOrdering Facility: [facility] Address: [address] [place] [address] Performed By: #### 5 8410-2 ####[facility]ATORYCLIA [id number] [address] MCHC (RBC) [Mass/Vol] 30.3 g/dL Low 30.5-36.0 [facility] Comment on above: Order Comment: Speci men Type: BLOOD SPECIMENOrdering Facility: [facility] Address: [address] [place] [address] Performed By: #### 5 8410-2 ####[facility]ATORYCLIA [id number] [address] MCV (RBC) [Entitic vol] 89.0 fL Normal 80.0-100.0 [facility] Comment on above: Order Comment: Speci men Type: BLOOD SPECIMENOrdering Facility: [facility] Address: [address] [place] [address] Performed By: #### 5 8410-2 ####[facility]ATORYCLIA [id number] [address] Nucleated RBC (Bld) [#/Vol] 10*3/uL Normal <0.01 [facility] Comment on above: Order Comment: Speci men Type: BLOOD SPECIMENOrdering Facility: [facility] Address: [address] [place] [address] Performed By: #### 5 8410-2 ####[facility]ATORYCLIA [id number] [address] [place] Platelet mean volume (Bld) [Entitic vol] 9.8 fL Normal 9.0-12.7 [facility] Comment on above: Order Comment: Speci men Type: BLOOD SPECIMENOrdering Facility: [facility] Address: [address] [place] [address] Performed By: #### 5 8410-2 ####[facility]ATORYCLIA [id number] [address] [place] Platelets (Bld) [#/Vol] 281 10*3/uL Normal 150-400 [facility] Comment on above: Order Comment: Speci men Type: BLOOD SPECIMENOrdering Facility: [facility] Address: [address] [place] [address] Performed By: #### 5 8410-2 ####[facility]ATORYCLIA [id number] [address] [place] RBC (Bld) [#/Vol] 3.26 10*6/uL Low 4.20-6.00 [facility] Comment on above: Order Comment: Speci men Type: BLOOD SPECIMENOrdering Facility: [facility] Address: [address] [place], [place] [address] Performed By: #### 5 8410-2 ####[facility]ATORYCLIA [id number] [place] [address] [place] WBC (Bld) [#/Vol] 9.12 10*3/uL Normal 3.70-11.00 [facility] Comment on above: Order Comment: Speci men Type: BLOOD SPECIMENOrdering Facility: [facility] Address: [address] [place] [address] Performed By: #### 5 8410-2 ####[facility]ATORYCLIA [id number] [address] [place] CONSULT PROGon 07-09-2021 CONSULT PROG Normal [facility] CONSULT PROG Normal [facility] HISTORY PHYSICALon HISTORY PHYSICAL Normal [facility] Magnesium SerPl-mCncon 07-09 Magnesium [Mass/Vol] 1.9 mg/dL Normal 1.7-2.3 [facility] Comment on above: Order Comment: Speci men Type: BLOOD SPECIMENOrdering Facility: [facility] Address: [address] [place] [address] Performed By: #### 1 9123-9, 2777-1, 73868-5 ####[facility]ATORYCLIA [id number] [address] Phosphate SerPl-ncon 07-09 Phosphate [Mass/Vol] 3.6 mg/dL Normal 2.7-4.8 [facility] Comment on above: Order Comment: Speci men Type: BLOOD SPECIMENOrdering Facility: [facility] Address: [address] [place] [address] Performed By: #### 1 9123-9, 2777-1, 65103-8 ####[facility]ATORYCLIA [id number] [address] [place] THERAPY NTon 07-09-2021 THERAPY NT Normal [facility] XR ABDOMEN 1V SUPINEon 07-09 XR ABDOMEN 1V SUPINE Normal [facility] ALLIED HEALTHon 07-08-2021 ALLIED HEALTH Normal [facility] ALLIED HEALTH Normal [facility] ALLIED HEALTH Normal [facility] ANES PRE-OPon 07-08-2021 ANES PRE-OP Normal [facility] BRIEF OP NOTon 07-08-2021 BRIEF OP NOT Normal [facility] Bacteria Bld Culton 07-09-19 22 Bacteria identified Cx Nom (Bld) CULTURE, BLOOD: No growth 5 days Normal [facility] Comment on above: Performed By: #### 6 00-7 ####[facility]ATORYCLIA [id number] [address] Bacteria identified Cx Nom (Bld) CULTURE, BLOOD: No growth 5 days [facility] Comment on above: Performed By: #### 6 00-7 ####[facility]ATORYCLIA [id number] [address] Bacteria CSF Culton 07-09-19 22 Bacteria identified Cx Nom (CSF) CULTURE, CSF: No growth 14 days GRAM STAIN: No organisms seen No Polymorphonuclear Leukocytes Few Red Blood Cells Gram stain performed on cytospun specimen. [facility] Comment on above: Performed By: #### 6 06-4 ####[facility]ATORYCLIA [id number] [address] Bacteria Ur Culton 2 Bacteria identified Cx Nom (U) ORGANISM ID: 1 10,000 -<50,000 CFU/ml Proteus species Insignificant colony count. No further workup. ORGANISM ID: 2 <10,000 CFU/ml Normal urogenital chris [facility] Comment on above: Performed By: #### 6 30-4 ####[facility]ATORYCLIA [id number] [address] Bacteria Wnd Culton 07-09-19 22 Bacteria identified Cx Nom (Wound) ORGANISM ID: 1 Coagulase negative staphylococcus Growth in Enrichment Broth Only No susceptibility testing done. Call lab within 72 hours to initiate work-up if clinically indicated. GRAM STAIN: Account credited. Not performed on this specimen type. [facility] Comment on above: Performed By: #### 6 462-6 ####[facility]ATORYCLIA [id number] [address] Bacteria identified Cx Nom (Wound) ORGANISM ID: 1 Rare Coagulase negative staphylococcus No susceptibility testing done. Call lab within 72 hours to initiate work-up if clinically indicated. GRAM STAIN: Account credited. Not performed on this specimen type. Normal [facility] Comment on above: Performed By: #### 6 462-6 ####[facility]ATORYCLIA [id number] [address] [place] Bacteria identified Cx Nom (Wound) CULTURE, INTRAOPERATIVE HARDWARE: No growth 14 days GRAM STAIN: Account credited. Not performed on this specimen type. Normal [facility] Comment on above: Performed By: #### 6 462-6 ####[facility]ATORYCLIA [id number] [address] [place] Basic metabolic 2000 panelon 07-08-2021 Anion gap [Moles/Vol] 9 mmol/L Normal 9-18 [facility] Comment on above: Order Comment: Speci men Type: BLOOD SPECIMENOrdering Facility: [facility] Address: [address] [place] [address] Performed By: #### 2 4321-2 ####[facility]ATORYCLIA [id number] [place] [address] [place] Calcium [Mass/Vol] 8.5 mg/dL Normal 8.5-10.2 [facility] Comment on above: Order Comment: Speci men Type: BLOOD SPECIMENOrdering Facility: [facility] Address: [address] [place] [address] Performed By: #### 2 4321-2 ####[facility]ATORYCLIA [id number] [address] [place] Chloride [Moles/Vol] 98 mmol/L Normal 97-105 [facility] Comment on above: Order Comment: Speci men Type: BLOOD SPECIMENOrdering Facility: [facility] Address: [address] [address] Performed By: #### 2 4321-2 ####[facility]ORATORYCLIA [id number] [address] [place] CO2 [Moles/Vol] 31 mmol/L High 22-30 [facility] Comment on above: Order Comment: Speci men Type: BLOOD SPECIMENOrdering Facility: [facility] Address: [facility] [place] [address] Performed By: #### 2 4321-2 ####[facility]ORATORYCLIA [id number] [place] [address] [place] Creatinine [Mass/Vol] 0.64 mg/dL Low 0.73-1.22 [facility] Comment on above: Order Comment: Shira francia Type: BLOOD SPECIMENOrdering Facility: [facility] Address: [address] [place] [address] Performed By: #### 2 4321-2 ####[facility]ATORYCLIA [id number] [address] ESTIMATED GLOMERULAR FILTRATION RATE 102 mL/min/1.73m??? Normal >=60 [facility] Comment on above: Order Comment: Shira feldman Type: BLOOD SPECIMENOrdering Facility: [facility] Address: [address] [place] [address] Result Comment: Luzmaria mated Glomerular Filtration Rate [...] actual GFR. Performed By: #### 2 4321-2 ####[facility]ATORYCLIA [id number] [address] [place] Glucose [Mass/Vol] 114 mg/dL High 74-99 [facility] Comment on above: Order Comment: Shira francia Type: BLOOD SPECIMENOrdering Facility: [facility] Address: [address] [place] [address] Result Comment: The [place] [employer] (ADA) provides guidance for cutoff [...] Standards of Medical Care in Diabetes 2016, [place] [employer]. Diabetes Care. 2016.39(Suppl 1). Performed By: #### 2 4321-2 ####[facility]ATORYCLIA [id number] [address] STATES OF [facility] Potassium [Moles/Vol] 3.4 mmol/L Low 3.7-5.1 [facility] Comment on above: Order Comment: Speci men Type: BLOOD SPECIMENOrdering Facility: [facility] Address: [address] [place] [address] Performed By: #### 2 4321-2 ####[facility]ATORYCLIA [id number] [address] Sodium [Moles/Vol] 138 mmol/L Normal 136-144 [facility] Comment on above: Order Comment: Speci men Type: BLOOD SPECIMENOrdering Facility: [facility] Address: [address] [place] [address] Performed By: #### 2 4321-2 ####[facility]ATORYCLIA [id number] [address] [place] [facility] Urea nitrogen [Mass/Vol] 14 mg/dL Normal 9-24 [facility] Comment on above: Order Comment: Speci men Type: BLOOD SPECIMENOrdering Facility: [facility] Address: [address] [address] Performed By: #### 2 4321-2 ####[facility]ATORYCLIA [id number] [address] [place] CBC W Auto Differential pane l (Bld)on 07-08-2021 Basophils (Bld) [#/Vol] 0.05 10*3/uL Normal <0.11 [facility] Comment on above: Order Comment: Speci men Type: BLOOD SPECIMENOrdering Facility: [facility] Address: [address] [address] Performed By: #### 5 7021-8 ####[facility]ATORYCLIA [id number] [address] [place] Basophils/100 WBC (Bld) 0.4 % Normal [facility] Comment on above: Order Comment: Speci men Type: BLOOD SPECIMENOrdering Facility: [facility] Address: [address] [place] [address] Performed By: #### 5 7021-8 ####[facility]ATORYCLIA [id number] [address] [place] Differential cell count method Nom (Bld) Auto Normal [facility] Comment on above: Order Comment: Speci men Type: BLOOD SPECIMENOrdering Facility: [facility] Address: [address] [place] [address] Performed By: #### 5 7021-8 ####[facility]ATORYCLIA [id number] [address] [place] Eosinophils (Bld) [#/Vol] 0.68 10*3/uL High <0.46 [facility] Comment on above: Order Comment: Speci men Type: BLOOD SPECIMENOrdering Facility: [facility] Address: [address] [place] [address] Performed By: #### 5 7021-8 ####[facility]ATORYCLIA [id number] [address] [place] Eosinophils/100 WBC (Bld) 5.4 % Normal [facility] Comment on above: Order Comment: Speci men Type: BLOOD SPECIMENOrdering Facility: [facility] Address: [address] [place] [address] Performed By: #### 5 7021-8 ####[facility]ATORYCLIA [id number] [address] [place] Erythrocyte distribution width (RBC) [Ratio] 16.3 % High 11.5-15.0 [facility] Comment on above: Order Comment: Speci men Type: BLOOD SPECIMENOrdering Facility: [facility] Address: [address] [place] [address] Performed By: #### 5 7021-8 ####[facility]ORATORYCLIA [id number] [address] Hematocrit (Bld) [Volume fraction] 35.7 % Low 39.0-51.0 [facility] Comment on above: Order Comment: Speci men Type: BLOOD SPECIMENOrdering Facility: [facility] Address: [address] [place] [address] Performed By: #### 5 7021-8 ####[facility]ATORYCLIA [id number] [address] Hemoglobin (Bld) [Mass/Vol] 10.8 g/dL Low 13.0-17.0 [facility] Comment on above: Order Comment: Speci men Type: BLOOD SPECIMENOrdering Facility: [facility] Address: [address] [place] [address] Performed By: #### 5 7021-8 ####[facility]ORATORYCLIA [id number] [address] IMMATURE GRAN % 0.4 % Normal [facility] Comment on above: Order Comment: Speci men Type: BLOOD SPECIMENOrdering Facility: [facility] Address: [address] [place] [address] Performed By: #### 5 7021-8 ####[facility]ATORYCLIA [id number] [address] IMMATURE GRAN ABS 0.05 k/uL Normal <0.10 [facility] Comment on above: Order Comment: Speci men Type: BLOOD SPECIMENOrdering Facility: [facility] Address: [address] [place] [address] Performed By: #### 5 7021-8 ####[facility]ATORYCLIA [id number] [address] Lymphocytes (Bld) [#/Vol] 1.85 10*3/uL Normal 1.00-4.00 [facility] Comment on above: Order Comment: Speci men Type: BLOOD SPECIMENOrdering Facility: [facility] Address: [address] [place] [address] Performed By: #### 5 7021-8 ####[facility]ATORYCLIA [id number] [address] Lymphocytes/100 WBC (Bld) 14.7 % Normal [facility] Comment on above: Order Comment: Speci men Type: BLOOD SPECIMENOrdering Facility: [facility] Address: [address] [place] [address] Performed By: #### 5 7021-8 ####[facility]ATORYCLIA [id number] [address] MCH (RBC) [Entitic mass] 27.1 pg Normal 26.0-34.0 [facility] Comment on above: Order Comment: Speci men Type: BLOOD SPECIMENOrdering Facility: [facility] Address: [address] [place] [address] Performed By: #### 5 7021-8 ####[facility]ORATORYCLIA [id number] [address] [place] [facility] MCHC (RBC) [Mass/Vol] 30.3 g/dL Low 30.5-36.0 [facility] Comment on above: Order Comment: Speci men Type: BLOOD SPECIMENOrdering Facility: [facility] Address: [address] [place] [address] Performed By: #### 5 7021-8 ####[facility]ATORYCLIA [id number] [address] [place] [facility] MCV (RBC) [Entitic vol] 89.7 fL Normal 80.0-100.0 [facility] Comment on above: Order Comment: Speci men Type: BLOOD SPECIMENOrdering Facility: [facility] Address: [address] [place] [address] Performed By: #### 5 7021-8 ####[facility]ORATORYCLIA [id number] [place] [address] [place] Monocytes (Bld) [#/Vol] 0.87 10*3/uL High <0.87 [facility] Comment on above: Order Comment: Speci men Type: BLOOD SPECIMENOrdering Facility: [facility] Address: [address] [place] [address] Performed By: #### 5 7021-8 ####[facility]ATORYCLIA [id number] [address] [place] Monocytes/100 WBC (Bld) 6.9 % Normal [facility] Comment on above: Order Comment: Speci men Type: BLOOD SPECIMENOrdering Facility: [facility] Address: [address] [place] [address] Performed By: #### 5 7021-8 ####[facility]ATORYCLIA [id number] [address] [place] Neutrophils (Bld) [#/Vol] 9.05 10*3/uL High 1.45-7.50 [facility] Comment on above: Order Comment: Speci men Type: BLOOD SPECIMENOrdering Facility: [facility] Address: [address] [place] [address] Performed By: #### 5 7021-8 ####[facility]ORATORYCLIA [id number] [address] [place] Neutrophils/100 WBC (Bld) 72.2 % Normal [facility] Comment on above: Order Comment: Speci men Type: BLOOD SPECIMENOrdering Facility: [facility] Address: [address] [place] [address] Performed By: #### 5 7021-8 ####[facility]ORATORYCLIA [id number] [place] [address] [place] Nucleated RBC (Bld) [#/Vol] 10*3/uL Normal <0.01 [facility] Comment on above: Order Comment: Speci men Type: BLOOD SPECIMENOrdering Facility: [facility] Address: [address] [place] [address] Performed By: #### 5 7021-8 ####[facility]ATORYCLIA [id number] [address] [place] Nucleated RBC/100 WBC (Bld) [Ratio] 0.0 /100 WBC Normal [facility] Comment on above: Order Comment: Speci men Type: BLOOD SPECIMENOrdering Facility: [facility] Address: [address] [place] [address] Performed By: #### 5 7021-8 ####[facility]ORATORYCLIA [id number] [address] [place] Platelet mean volume (Bld) [Entitic vol] 9.9 fL Normal 9.0-12.7 [facility] Comment on above: Order Comment: Speci men Type: BLOOD SPECIMENOrdering Facility: [facility] Address: [address] [place] [address] Performed By: #### 5 7021-8 ####[facility]ORATORYCLIA [id number] [address] Platelets (Bld) [#/Vol] 335 10*3/uL Normal 150-400 [facility] Comment on above: Order Comment: Speci men Type: BLOOD SPECIMENOrdering Facility: [facility] Address: [address] [place] [address] Performed By: #### 5 7021-8 ####[facility]ORATORYCLIA [id number] [address] [place] RBC (Bld) [#/Vol] 3.98 10*6/uL Low 4.20-6.00 [facility] Comment on above: Order Comment: Speci men Type: BLOOD SPECIMENOrdering Facility: [facility] Address: [address] [place] [address] Performed By: #### 5 7021-8 ####[facility]ORATORYCLIA [id number] [address] [place] WBC (Bld) [#/Vol] 12.55 10*3/uL High 3.70-11.00 [facility] Comment on above: Order Comment: Speci men Type: BLOOD SPECIMENOrdering Facility: [facility] Address: [address] [place] [address] Performed By: #### 5 7021-8 ####[facility]ORATORYCLIA [id number] [place] [address] [place] CK CREATINE KINASEon 022 CK [Catalytic activity/Vol] 72 U/L Normal 51-298 [facility] Comment on above: Order Comment: Speci men Type: BLOOD SPECIMENOrdering Facility: [facility] Address: [address] [place] [address] Performed By: #### C K, 85222-6 ####[facility]ORATORYCLIA [id number] [place] [address] [place] CONSULT PROGon 07-08-2021 CONSULT PROG Normal [facility] CONSULT PROG Normal [facility] CSF MANUAL DIFFon 07-08-2021 DIF TTL, CSF 3 cells counted Normal [facility] Comment on above: Order Comment: Speci men Type: CEREBROSPINAL FLUIDOrdering Facility: [facility] Address: [address] [place] [address] Performed By: #### 3 4563-7, [id number] ####[facility]ORATORYCLIA [id number] [place] [address] [place] LYMPH%, CSF 33 % Low 50-90 [facility] Comment on above: Order Comment: Speci men Type: CEREBROSPINAL FLUIDOrdering Facility: [facility] Address: [address] [place] [address] Performed By: #### 3 4563-7, [id number] ####[facility]ORATORYCLIA [id number] [place] [address] [place] MONO%, CSF 67 % High 10-50 [facility] Comment on above: Order Comment: Speci men Type: CEREBROSPINAL FLUIDOrdering Facility: [facility] Address: [address] [place] [address] Performed By: #### 3 4563-7, [id number] ####[facility]ORATORYCLIA [id number] [place] [address] [place] CT ABD/PEL W IVCONon 022 CT ABD/PEL W IVCON Normal [facility] CT BRAIN WO IVCONon 07-09-[address] BRAIN WO IVCON Normal [facility] CT BRAIN WO IVCON Normal [facility] CT CHEST W IVCON PEon 2021 CT CHEST W IVCON PE Normal [facility] Cell count panel (CSF)on Clarity (CSF) Clear Normal Clear [facility] Comment on above: Order Comment: Speci men Type: CEREBROSPINAL FLUIDOrdering Facility: [facility] Address: [address] [place] [address] Performed By: #### 3 4563-7, [id number] ####[facility]ATORYCLIA [id number] [address] [place] Clarity (Unsp spec) Clear Normal Clear [facility] Comment on above: Order Comment: Speci men Type: CEREBROSPINAL FLUIDOrdering Facility: [facility] Address: [address] [place] [address] Performed By: #### 3 4563-7, [id number] ####[facility]ORATORYCLIA [id number] [address] [place] Color (CSF) Colorless Normal Colorless [facility] Comment on above: Order Comment: Speci men Type: CEREBROSPINAL FLUIDOrdering Facility: [facility] Address: [address] [address] Performed By: #### 3 4563-7, [id number] ####[facility]ORATORYCLIA [id number] [address] [place] Color (Spun CSF) Colorless Normal Colorless [facility] Comment on above: Order Comment: Speci men Type: CEREBROSPINAL FLUIDOrdering Facility: [facility] Address: [address] [address] Performed By: #### 3 4563-7, [id number] ####[facility] LABORATORYCLIA [id number] [address] CSF TUBE NUMBER [employer] Normal [facility] Comment on above: Order Comment: Speci men Type: CEREBROSPINAL FLUIDOrdering Facility: [facility] Address: [address] [place] [address] Performed By: #### 3 4563-7, [id number] ####[facility]ORATORYCLIA [id number] [address] RBC Manual cnt (CSF) [#/Vol] 94 cells/uL High 0-5 [facility] Comment on above: Order Comment: Speci men Type: CEREBROSPINAL FLUIDOrdering Facility: [facility] Address: [address] [place] [address] Performed By: #### 3 4563-7, [id number] ####[facility]ORATORYCLIA [id number] [address] WBC Manual cnt (CSF) [#/Vol] 1 cells/uL Normal 0-5 [facility] Comment on above: Order Comment: Speci men Type: CEREBROSPINAL FLUIDOrdering Facility: [facility] Address: [address] [place] [address] Performed By: #### 3 4563-7, [id number] ####[facility]ORATORYCLIA [id number] [address] Comprehensive metabolic 2000 panelon 07-08-2021 Albumin [Mass/Vol] 3.6 g/dL Low 3.9-4.9 [facility] Comment on above: Order Comment: Speci men Type: BLOOD SPECIMENOrdering Facility: [facility] Address: [address] [place] [address] Performed By: #### C K, 11100-3 ####[facility]ORATORYCLIA [id number] [address] ALP [Catalytic activity/Vol] 125 U/L High 38-113 [facility] Comment on above: Order Comment: Speci men Type: BLOOD SPECIMENOrdering Facility: [facility] Address: [facility] [address] Performed By: #### Eileen Valdivia, 59949-7 ####[facility]ORATORYCLIA [id number] [address] OF [facility] ALT With P-5'-P [Catalytic activity/Vol] 24 U/L Normal 10-54 [facility] Comment on above: Order Comment: Speci men Type: BLOOD SPECIMENOrdering Facility: [facility] Address: [address] [place] [address] Performed By: #### Eileen Valdivia, 22328-0 ####[facility]ORATORYCLIA [id number] [address] Anion gap [Moles/Vol] 16 mmol/L Normal 9-18 [facility] Comment on above: Order Comment: Speci men Type: BLOOD SPECIMENOrdering Facility: [facility] Address: [address] [place] [address] Performed By: #### Eileen Valdivia, 63328-2 ####[facility]ORATORYCLIA [id number] [address] AST With P-5'-P [Catalytic activity/Vol] 21 U/L Normal 14-40 [facility] Comment on above: Order Comment: Speci men Type: BLOOD SPECIMENOrdering Facility: [facility] Address: [address] [place] [address] Performed By: #### Eileen Valdivia, 24998-9 ####[facility]ORATORYCLIA [id number] [address] OF [facility] Bilirubin [Mass/Vol] 0.3 mg/dL Normal 0.2-1.3 [facility] Comment on above: Order Comment: Speci men Type: BLOOD SPECIMENOrdering Facility: [facility] Address: [address] [place] [address] Performed By: #### Eileen Valdivia, 77612-4 ####[facility]ORATORYCLIA [id number] [address] STATES OF [facility] Calcium [Mass/Vol] 8.9 mg/dL Normal 8.5-10.2 [facility] Comment on above: Order Comment: Speci men Type: BLOOD SPECIMENOrdering Facility: [facility] Address: [address] [place] [address] Performed By: #### Eileen Valdivia, 35543-5 ####[facility]ORATORYCLIA [id number] [place] [address] [place] Chloride [Moles/Vol] 96 mmol/L Low 97-105 [facility] Comment on above: Order Comment: Speci men Type: BLOOD SPECIMENOrdering Facility: [facility] Address: [address] [place] [address] Performed By: #### Eileen Valdivia, 38641-3 ####[facility]ORATORYCLIA [id number] [address] STATES OF [facility] CO2 [Moles/Vol] 27 mmol/L Normal 22-30 [facility] Comment on above: Order Comment: Speci men Type: BLOOD SPECIMENOrdering Facility: [facility] Address: [address] [place] [address] Performed By: #### Eileen Valdivia, 59941-9 ####[facility]ORATORYCLIA [id number] [address] [place] Creatinine [Mass/Vol] 0.68 mg/dL Low 0.73-1.22 [facility] Comment on above: Order Comment: Speci men Type: BLOOD SPECIMENOrdering Facility: [facility] Address: [address] [place] [address] Performed By: #### Eileen Valdivia, 13192-4 ####[facility]ORATORYCLIA [id number] [address] ESTIMATED GLOMERULAR FILTRATION RATE 101 mL/min/1.73m??? Normal >=60 [facility] Comment on above: Order Comment: Speci men Type: BLOOD SPECIMENOrdering Facility: [facility] Address: [address] [place] [address] Result Comment: Luzmaria mated Glomerular Filtration Rate [...] actual GFR. Performed By: #### Eileen Valdivia, 44991-0 ####[facility]ORATORYCLIA [id number] [place] [address] [place] Glucose [Mass/Vol] 130 mg/dL High 74-99 [facility] Comment on above: Order Comment: Shira feldman Type: BLOOD SPECIMENOrdering Facility: [facility] Address: [address] [place] [address] Result Comment: The [place] Diabetes Association (ADA) provides guidance for cutoff [...] Standards of Medical Care in Diabetes 2016, [place] [employer]. Diabetes Care. 2016.39(Suppl 1). Performed By: #### Eileen Valdivia, 55455-9 ####[facility]ORATORYCLIA [id number] [address] [id number] [place] Potassium [Moles/Vol] 3.9 mmol/L Normal 3.7-5.1 [facility] Comment on above: Order Comment: Shira feldman Type: BLOOD SPECIMENOrdering Facility: [facility] Address: [address] [place] [address] Performed By: #### Eileen Valdivia, 76875-6 ####[facility]ORATORYCLIA [id number] [place] [address] [place] Protein [Mass/Vol] 7.0 g/dL Normal 6.3-8.0 [facility] Comment on above: Order Comment: Speci men Type: BLOOD SPECIMENOrdering Facility: [facility] Address: [address] [place] [address] Performed By: #### C K, 75362-5 ####[facility]ORATORYCLIA [id number] [address] [place] Sodium [Moles/Vol] 139 mmol/L Normal 136-144 [facility] Comment on above: Order Comment: Speci men Type: BLOOD SPECIMENOrdering Facility: [facility] Address: [address] [place] [address] Performed By: #### Eileen Valdivia, 50800-8 ####[facility]ORATORYCLIA [id number] [address] Urea nitrogen [Mass/Vol] 16 mg/dL Normal 9-24 [facility] Comment on above: Order Comment: Speci men Type: BLOOD SPECIMENOrdering Facility: [facility] Address: [address] [place] [address] Performed By: #### Eileen Valdivia, 17796-7 ####[facility] LABORATORYCLIA [id number] [address] ED NOTEon 07-08-2021 ED NOTE HNO ID: [id number] Author: Lenora James RN Service: Emergency Medicine Author Type: Registered Nurse Type: ED Notes Filed: 07/08/2021 5:03 PM Note Text: Pt to OR with surgical team Normal [facility] ED NOTE HNO ID: [id number] Author: Lenora James RN Service: Emergency Medicine Author Type: Registered Nurse Type: ED Notes Filed: 07/08/2021 4:50 PM Note Text: OR team to get pt Normal [facility] ED NOTE HNO ID: [id number] Author: Lenora James RN Service: Emergency Medicine Author Type: Registered Nurse Type: ED Notes Filed: 07/08/2021 4:50 PM Note Text: Normal [facility] ED NOTE HNO ID: [id number] Author: Lenora James RN Service: Emergency Medicine Author Type: Registered Nurse Type: ED Notes Filed: 07/08/2021 4:50 PM Note Text: Spoke with presurg; pt to go to OR now [facility] ED NOTE HNO ID: [id number] Author: Lenora James RN Service: Emergency Medicine Author Type: Registered Nurse Type: ED Notes Filed: 07/08/2021 4:12 PM Note Text: Neurosurgery at beside [facility] ED NOTE HNO ID: [id number] Author: Lenora James RN Service: Emergency Medicine Author Type: Registered Nurse Type: ED Notes Filed: 07/08/2021 2:35 PM Note Text: respiratory aware of pt breathing treatments [facility] ED NOTE HNO ID: [id number] Author: Lisa Woo RN Service: ? Author Type: Registered Nurse Type: ED Notes Filed: 07/08/2021 2:20 PM Note Text: Xray notified pt is ready. [facility] ED NOTE HNO ID: [id number] Author: Lenora James RN Service: Emergency Medicine Author Type: Registered Nurse Type: ED Notes Filed: 07/08/2021 12:14 PM Note Text: CT notified regarding imaging orders placed [facility] ED NOTE [facility] ED PROV NOTEon 07-08-2021 ED PROV NOTE Normal [facility] Glucose CSF-mCncon Glucose (CSF) [Mass/Vol] 88 mg/dL High 40-70 [facility] Comment on above: Order Comment: Speci men Type: CEREBROSPINAL FLUIDOrdering Facility: [facility] Address: [address] [place] [id number] Result Comment: Lumb ar CSF glucose values of healthy patients are approximately 60% of the plasma values and must always be compared with a concurrently measured plasma value for adequate clinical interpretation.References: 1. Glucose HK (GLUC3) [package insert V 12.0 Haitian]. [employer], [place], [place]. September 2015. 2. Michelle Moore, Loki HGarfield (2015). Chapter 7: Glucose and Lactate. Marianela Alcocer al.(eds.), Cerebrospinal Fluid in Clinical Neurology. [employer]: [employer] Performed By: #### 2 880-3, 2342-4 ####[facility]ORATORYCLIA [id number] [address] STATES OF [facility] HIGH SENSITIVITY TROPONIN To n 07-08-2021 HIGH SENSITIVITY TAMIKO 27 ng/L High <12 [facility] Comment on above: Order Comment: Shira feldman Type: BLOOD SPECIMENOrdering Facility: [facility] Address: [address] [place] [address] Result Comment: When assessing risk for acute [...] day MACE. Performed By: #### H STNT ####[facility] LABORATORYIA [id number] [address] HIGH SENSITIVITY TAMIKO 36 ng/L High <12 [facility] Comment on above: Order Comment: Shira feldman Type: BLOOD SPECIMENOrdering Facility: [facility] Address: [address] [place] [address] Result Comment: When assessing risk for acute [...] day MACE. Performed By: #### H STNT ####[facility]ORATORYCLIA [id number] [address] [place] HISTORY PHYSICALon HISTORY PHYSICAL Normal [facility] NURSING PROGon 07-08-2021 NURSING PROG Normal [facility] OPERATIVE NOon 07-08-2021 OPERATIVE NO Normal [facility] Prot CSF-mCncon 07-08-2021 Protein (CSF) [Mass/Vol] 33 mg/dL Normal 15-45 [facility] Comment on above: Order Comment: Speci men Type: CEREBROSPINAL FLUIDOrdering Facility: [facility] Address: [address] [place] [address] Performed By: #### 2 880-3, 2342-4 ####[facility]ORATORYCLIA [id number] [address] [place] SARS-CoV-2 RNA Resp Ql MEGAN+p robeon 07-08-2021 SARS-CoV-2 (COVID-19) RNA MEGAN+probe Ql (Resp) COVID 19 RESULT: SARS-CoV-2 (Agent of COVID-19) Not Detected by RT-PCR or equivalent method. This test has been authorized by FDA under an Emergency Use Authorization (EUA). Normal [facility] Comment on above: Performed By: #### 9 4500-6 ####[facility]ORATORYCLIA [id number] [address] STAPH AUREUS PCRon 2 S. aureus and MRSA panel MEGAN+probe (Nose) Normal Negative [facility] Comment on above: Order Comment: Speci men Type: SWAB OF INTERNAL NOSEOrdering Facility: [facility] Address: [address] [place] [address] Result Comment: Nega tive for Staphylococcus aureus by PCR.Negative for MRSA by PCR Performed By: #### S APCR ####[facility]ORATORYCLIA [id number] [address] Urinalysis complete panel (U )on 07-08-2021 Bacteria LM.HPF (Urine sed) [#/Area] Few Abnormal None Seen [facility] Comment on above: Order Comment: Speci men Type: URINE SPECIMENOrdering Facility: [facility] Address: [address] [place] [address] Performed By: #### 2 4356-8 ####[facility]ORATORYCLIA [id number] [address] [place] Bilirubin Ql (U) Negative Normal Negative [facility] Comment on above: Order Comment: Speci men Type: URINE SPECIMENOrdering Facility: [facility] Address: [facility] [address] Performed By: #### 2 4356-8 ####[facility]ORATORYCLIA [id number] [address] [place] Clarity (Unsp spec) Turbid Abnormal Clear [facility] Comment on above: Order Comment: Speci men Type: URINE SPECIMENOrdering Facility: [facility] Address: [address] [place] [address] Performed By: #### 2 4356-8 ####[facility]ORATORYCLIA [id number] [address] Color (U) Light Yellow Normal yellow [facility] Comment on above: Order Comment: Speci men Type: URINE SPECIMENOrdering Facility: [facility] Address: [address] [place] [address] Performed By: #### 2 4356-8 ####[facility]ORATORYCLIA [id number] [address] Glucose Test strip (U) [Mass/Vol] Negative Normal Negative [facility] Comment on above: Order Comment: Speci men Type: URINE SPECIMENOrdering Facility: [facility] Address: [address] [place] [address] Performed By: #### 2 4356-8 ####[facility]ORATORYCLIA [id number] [address] STATES [facility] Hemoglobin Ql (U) Negative Normal Negative [facility] Comment on above: Order Comment: Speci men Type: URINE SPECIMENOrdering Facility: [facility] Address: [address] [place] [address] Performed By: #### 2 4356-8 ####[facility] LABORATORYCLIA [id number] [address] [place] Hyaline casts (Urine sed) [#/Area] 1-3 /LPF Abnormal 0 /LPF [facility] Comment on above: Order Comment: Speci men Type: URINE SPECIMENOrdering Facility: [facility] Address: [address] [place] [address] Performed By: #### 2 4356-8 ####[facility]ORATORYCLIA [id number] [address] Ketones Ql (U) Negative Normal Negative [facility] Comment on above: Order Comment: Speci men Type: URINE SPECIMENOrdering Facility: [facility] Address: [address] [place] [address] Performed By: #### 2 4356-8 ####[facility]ORATORYCLIA [id number] [address] Leukocyte esterase Test strip Ql (U) Negative Normal Negative [facility] Comment on above: Order Comment: Speci men Type: URINE SPECIMENOrdering Facility: [facility] Address: [address] [place] [address] Performed By: #### 2 4356-8 ####[facility]ORATORYCLIA [id number] [address] STATES [facility] Nitrite Ql (U) Negative Normal Negative [facility] Comment on above: Order Comment: Speci men Type: URINE SPECIMENOrdering Facility: [facility] Address: [address] [place] [address] Performed By: #### 2 4356-8 ####[facility]ORATORYCLIA [id number] [address] [place] pH (U) 5.0 [pH] Normal 5.0-8.0 [facility] Comment on above: Order Comment: Speci men Type: URINE SPECIMENOrdering Facility: [facility] Address: [address] [place] [address] Performed By: #### 2 4356-8 ####[facility]ORATORYCLIA [id number] [address] [place] Protein (U) [Mass/Vol] Negative Normal Negative [facility] Comment on above: Order Comment: Speci men Type: URINE SPECIMENOrdering Facility: [facility] Address: [address] [place] [address] Performed By: #### 2 4356-8 ####[facility]ORATORYCLIA [id number] [address] STATES [facility] RBC LM.HPF (Urine sed) [#/Area] 11-25 /HPF Abnormal 0-3 /HPF [facility] Comment on above: Order Comment: Speci men Type: URINE SPECIMENOrdering Facility: [facility] Address: [address] [place] [address] Performed By: #### 2 4356-8 ####[facility]NACLIA [id number] [address] Specific gravity (U) [Rel density] 1.018 Normal 1.005-1.030 [facility] Comment on above: Order Comment: Speci men Type: URINE SPECIMENOrdering Facility: [facility] Address: [address] [place] [address] Performed By: #### 2 4356-8 ####[facility]ORATORYCLIA [id number] [address] Urobilinogen Ql (U) Normal Normal Negative [facility] Comment on above: Order Comment: Speci men Type: URINE SPECIMENOrdering Facility: [facility] Address: [address] [place] [address] Performed By: #### 2 4356-8 ####[facility]ORATORYCLIA [id number] [address] WBC LM.HPF (Urine sed) [#/Area] /[HPF] Abnormal 0-5 /HPF [facility] Comment on above: Order Comment: Speci men Type: URINE SPECIMENOrdering Facility: [facility] Address: [address] [place] [address] Performed By: #### 2 4356-8 ####[facility]ORATORYCLIA [id number] [address] OF [facility] Vancomycin random [Mass/Vol] on 07-08-2021 Vancomycin [Mass/Vol] 31.0 ug/mL High 10.0-20.0 [facility] Comment on above: Order Comment: Speci men Type: BLOOD SPECIMENOrdering Facility: [facility] Address: [facility] [place] [address] Result Comment: Refe rence ranges and high/low indicator flags are provided as general guidelines only. The treating physician must determine appropriate target levels/dosing based on the specific clinical situation. Performed By: #### 4 091-5 ####[facility]ORATORYCLIA [id number] [address] XR ABD 2V SUPINE W UPR/DECUB /CTLon 07-08-2021 XR ABD 2V SUPINE W UPR/DECUB/CTL Normal [facility] XR CHEST 1V FRONTALon 2021 XR CHEST 1V FRONTAL Normal [facility] XR CHEST 1V FRONTAL Normal [facility] XR NECK SOFT TISSUE 2V AP/LA Ton 07-08-2021 XR NECK SOFT TISSUE 2V AP/LAT Normal [facility] XR SKULL 2V AP/LATon 022 XR SKULL 2V AP/LAT Normal [facility] HISTORY PHYSICALon HISTORY PHYSICAL HNO ID: [id number] Author: Amy Beltran MD Service: ? Author Type: Physician Type: HANDP Filed: 06/30/2021 6:42 PM Note Text: Connected Care Unit History and Physical Facility: [facility] Level of Care: Skilled Admission Date: June [...] regarding the above plan. Total time spent aamn-cu-vgln and/or counseling and coordinating care on the skilled care unit for patient was approximately 45 minutes SUBJECTIVE (HISTORY) Chief Complaint: Confusion, infection, blood clot. Andrew Sifuentes is being seen today for snf facility (SNF) admission AND management of weakness, tube feed, infected retroperitoneal infection and seizure. HPI: This is a 71 year old male who presents from [facility] with primary admitting diagnosis of Seizure, [...] CT brain concerning for hydrocephalus. Tip of RN INVASIVE shunt was found to be in the [...] Status: Fu (more content not included)... Normal [facility] Basic metabolic 2000 panelon 06-28-2021 Anion gap [Moles/Vol] 7 mmol/L Low 9-18 [facility] Comment on above: Order Comment: Speci men Type: BLOOD SPECIMENOrdering Facility: [facility] Address: [address] [address] Performed By: #### 2 4320-2, ####[facility]ORATORYCLIA [id number] [place] [address] [place] Calcium [Mass/Vol] 8.8 mg/dL Normal 8.5-10.2 [facility] Comment on above: Order Comment: Speci men Type: BLOOD SPECIMENOrdering Facility: [facility] Address: [address] [place] [address] Performed By: #### 2 4320-2, ####[facility]ORATORYCLIA [id number] [place] [address] [place] Chloride [Moles/Vol] 103 mmol/L Normal 97-105 [facility] Comment on above: Order Comment: Speci men Type: BLOOD SPECIMENOrdering Facility: [facility] Address: [address] [place] [address] Performed By: #### 2 4320-06, ####[facility]ORATORYCLIA [id number] [place] [address] [place] CO2 [Moles/Vol] 28 mmol/L Normal 22-30 [facility] Comment on above: Order Comment: Speci men Type: BLOOD SPECIMENOrdering Facility: [facility] Address: [address] [place] [address] Performed By: #### 2 2, ####[facility]ORATORYCLIA [id number] [place] [address] [place] Creatinine [Mass/Vol] 0.57 mg/dL Low 0.73-1.22 [facility] Comment on above: Order Comment: Speci men Type: BLOOD SPECIMENOrdering Facility: [facility] Address: [address] [place] [address] Performed By: #### 2 2, ####[facility]ORATORYCLIA [id number] [place] [address] [place] GFR/1.73 sq M.predicted MDRD (S/P/Bld) [Vol rate/Area] mL/min/{1.73_m2} Normal [facility] Comment on above: Order Comment: Shira feldman Type: BLOOD SPECIMENOrdering Facility: [facility] Address: [address] [phone] Result Comment: >60e GFR (Estimated GFR) Units [...] actual GFR. Performed By: #### 2 4321-2, 28769-7 ####[facility] LABORATORYCLIA [id number] [place] [address] [place] Glucose [Mass/Vol] 120 mg/dL High 74-99 [facility] Comment on above: Order Comment: Johncara feldman Type: BLOOD SPECIMENOrdering Facility: [facility] Address: [address] [place], [place] [phone] Result Comment: The [place] Diabetes Association (ADA) provides guidance for cutoff [...] Standards of Medical Care in Diabetes 2016, [place] [employer]. Diabetes Care. 2016.39(Suppl 1). Performed By: #### 2 4321-2, 44316-0 ####[facility]ORATORYCLIA [id number] [place] [address] [place] Potassium [Moles/Vol] 3.8 mmol/L Normal 3.7-5.1 [facility] Comment on above: Order Comment: Speci men Type: BLOOD SPECIMENOrdering Facility: [facility] Address: [address] [place] [address] Performed By: #### 2 4321-2, ####[facility]ORATORYCLIA [id number] [address] [place] Sodium [Moles/Vol] 138 mmol/L Normal 136-144 [facility] Comment on above: Order Comment: Speci men Type: BLOOD SPECIMENOrdering Facility: [facility] Address: [address] [place] [address] Performed By: #### 2 4321-2, ####[facility]ORATORYCLIA [id number] [address] STATES OF [facility] Urea nitrogen [Mass/Vol] 24 mg/dL Normal 9-24 [facility] Comment on above: Order Comment: Speci men Type: BLOOD SPECIMENOrdering Facility: [facility] Address: [address] [place] [address] Performed By: #### 2 4321-2, ####[facility]ORATORYCLIA [id number] [address] [place] CASE MANAGEMon 06-28-2021 CASE MANAGEM Normal [facility] CBC panel Auto (Bld)on 06-28 Erythrocyte distribution width (RBC) [Ratio] 15.6 % High 11.5-15.0 [facility] Comment on above: Order Comment: Speci men Type: BLOOD SPECIMENOrdering Facility: [facility] Address: [address] [place] [address] Performed By: #### 5 8410-2 ####[facility]ORATORYCLIA [id number] [address] [place] Hematocrit (Bld) [Volume fraction] 30.5 % Low 39.0-51.0 [facility] Comment on above: Order Comment: Speci men Type: BLOOD SPECIMENOrdering Facility: [facility] Address: [address] [place] [address] Performed By: #### 5 8410-2 ####[facility]ORATORYCLIA [id number] [address] OF [facility] Hemoglobin (Bld) [Mass/Vol] 9.4 g/dL Low 13.0-17.0 [facility] Comment on above: Order Comment: Speci men Type: BLOOD SPECIMENOrdering Facility: [facility] Address: [address] [place] [address] Performed By: #### 5 8410-2 ####[facility]ORATORYCLIA [id number] [address] MCH (RBC) [Entitic mass] 27.8 pg Normal 26.0-34.0 [facility] Comment on above: Order Comment: Speci men Type: BLOOD SPECIMENOrdering Facility: [facility] Address: [address] [place] [address] Performed By: #### 5 8410-2 ####[facility]ATORYCLIA [id number] [address] MCHC (RBC) [Mass/Vol] 30.8 g/dL Normal 30.5-36.0 [facility] Comment on above: Order Comment: Speci men Type: BLOOD SPECIMENOrdering Facility: [facility] Address: [address] [place] [address] Performed By: #### 5 8410-2 ####[facility]ATORYCLIA [id number] [address] [place] MCV (RBC) [Entitic vol] 90.2 fL Normal 80.0-100.0 [facility] Comment on above: Order Comment: Speci men Type: BLOOD SPECIMENOrdering Facility: [facility] Address: [address] [place] [address] Performed By: #### 5 8410-2 ####[facility]ORATORYCLIA [id number] [place] [address] [place] Nucleated RBC (Bld) [#/Vol] 10*3/uL Normal <0.01 [facility] Comment on above: Order Comment: Speci men Type: BLOOD SPECIMENOrdering Facility: [facility] Address: [address] [place] [address] Performed By: #### 5 8410-2 ####[facility]ORATORYCLIA [id number] [place] [address] [place] Platelet mean volume (Bld) [Entitic vol] 9.9 fL Normal 9.0-12.7 [facility] Comment on above: Order Comment: Speci men Type: BLOOD SPECIMENOrdering Facility: [facility] Address: [address] [place] [address] Performed By: #### 5 8410-2 ####[facility]ORATORYCLIA [id number] [address] [place] Platelets (Bld) [#/Vol] 333 10*3/uL Normal 150-400 [facility] Comment on above: Order Comment: Speci men Type: BLOOD SPECIMENOrdering Facility: [facility] Address: [address] [place] [address] Performed By: #### 5 8410-2 ####[facility]ORATORYCLIA [id number] [place] [address] [place] RBC (Bld) [#/Vol] 3.38 10*6/uL Low 4.20-6.00 [facility] Comment on above: Order Comment: Speci men Type: BLOOD SPECIMENOrdering Facility: [facility] Address: [address] [place] [address] Performed By: #### 5 8410-2 ####[facility]ORATORYCLIA [id number] [place] [address] [place] WBC (Bld) [#/Vol] 9.71 10*3/uL Normal 3.70-11.00 [facility] Comment on above: Order Comment: Speci men Type: BLOOD SPECIMENOrdering Facility: [facility] Address: [address] [place] [address] [place] [address] Performed By: #### 5 8410-2 ####[facility]ORATORYCLIA [id number] [address] CNDSon 06-28-2021 CNDS Normal [facility] CONSULT PROGon 06-28-2021 CONSULT PROG Normal [facility] Magnesium SerPl-mCncon 06-28 Magnesium [Mass/Vol] 2.2 mg/dL Normal 1.7-2.3 [facility] Comment on above: Order Comment: Speci men Type: BLOOD SPECIMENOrdering Facility: [facility] Address: [address] [place], [place] [address] [address] Performed By: #### 2 4321-2, ####[facility]ORATORYCLIA [id number] [address] Vancomycin random [Mass/Vol] on 06-28-2021 Vancomycin [Mass/Vol] 23.0 ug/mL High 10.0-20.0 [facility] Comment on above: Order Comment: Speci men Type: BLOOD SPECIMENOrdering Facility: [facility] Address: [address] [place] [address] Result Comment: Refe rence ranges and high/low indicator flags are provided as general guidelines only. The treating physician must determine appropriate target levels/dosing based on the specific clinical situation. Performed By: #### 4 091-5 ####[facility]ATORYCLIA [id number] [address] [place] ALLIED HEALTHon 06-27-2021 ALLIED HEALTH Normal [facility] Basic metabolic 2000 panelon 06-27-2021 Anion gap [Moles/Vol] 10 mmol/L Normal 9-18 [facility] Comment on above: Order Comment: Speci men Type: BLOOD SPECIMENOrdering Facility: [facility] Address: [address] [place] [address] Performed By: #### 2 4321-2, ####[facility]ORATORYCLIA [id number] [place] [address] [place] Calcium [Mass/Vol] 8.8 mg/dL Normal 8.5-10.2 [facility] Comment on above: Order Comment: Speci men Type: BLOOD SPECIMENOrdering Facility: [facility] Address: [address] [place] [address] Performed By: #### 2 4320-2, ####[facility]ATORYCLIA [id number] [place] [address] [place] Chloride [Moles/Vol] 104 mmol/L Normal 97-105 [facility] Comment on above: Order Comment: Speci men Type: BLOOD SPECIMENOrdering Facility: [facility] Address: [address] [place] [address] Performed By: #### 2 4320-06, ####[facility]ORATORYCLIA [id number] [address] STATES OF [facility] CO2 [Moles/Vol] 26 mmol/L Normal 22-30 [facility] Comment on above: Order Comment: Speci men Type: BLOOD SPECIMENOrdering Facility: [facility] Address: [address] [place] [address] Performed By: #### 2 2, ####[facility]ORATORYCLIA [id number] [place] [address] [place] Creatinine [Mass/Vol] 0.57 mg/dL Low 0.73-1.22 [facility] Comment on above: Order Comment: Speci men Type: BLOOD SPECIMENOrdering Facility: [facility] Address: [address] [place] [address] Performed By: #### 2 4320-2, ####[facility]ATORYCLIA [id number] [place] [address] [place] GFR/1.73 sq M.predicted MDRD (S/P/Bld) [Vol rate/Area] mL/min/{1.73_m2} Normal [facility] Comment on above: Order Comment: Shira feldman Type: BLOOD SPECIMENOrdering Facility: [facility] Address: [address] [facility] [place] [phone] Result Comment: >60e GFR (Estimated GFR) Units [...] actual GFR. Performed By: #### 2 4321-2, 12889-9 ####[facility]ORATORYCLIA [id number] [place] [address] [place] Glucose [Mass/Vol] 133 mg/dL High 74-99 [facility] Comment on above: Order Comment: Johncara feldman Type: BLOOD SPECIMENOrdering Facility: [facility] Address: [address] [place] [phone] Result Comment: The [place] [employer] (ADA) provides guidance for cutoff [...] Standards of Medical Care in Diabetes 2016, [place] [employer]. Diabetes Care. 2016.39(Suppl 1). Performed By: #### 2 4321-2, 52883-3 ####[facility]ORATORYCLIA [id number] [place] [address] [place] Potassium [Moles/Vol] 4.2 mmol/L Normal 3.7-5.1 [facility] Comment on above: Order Comment: Speci men Type: BLOOD SPECIMENOrdering Facility: [facility] Address: [address] [place] [address] Performed By: #### 2 4321-2, ####[facility]ORATORYCLIA [id number] [address] STATES OF [facility] Sodium [Moles/Vol] 140 mmol/L Normal 136-144 [facility] Comment on above: Order Comment: Speci men Type: BLOOD SPECIMENOrdering Facility: [facility] Address: [address] [place] [address] Performed By: #### 2 4321-2, ####[facility]ORATORYCLIA [id number] [address] [place] [facility] Urea nitrogen [Mass/Vol] 24 mg/dL Normal 9-24 [facility] Comment on above: Order Comment: Speci men Type: BLOOD SPECIMENOrdering Facility: [facility] Address: [address] [place] [address] Performed By: #### 2 4321-2, ####[facility]ATORYCLIA [id number] [address] OF [facility] CASE MANAGEMon 06-27-2021 CASE MANAGEM Normal [facility] CBC panel Auto (Bld)on 06-27 Erythrocyte distribution width (RBC) [Ratio] 15.8 % High 11.5-15.0 [facility] Comment on above: Order Comment: Speci men Type: BLOOD SPECIMENOrdering Facility: [facility] Address: [address] [place] [address] Performed By: #### 5 8410-2 ####[facility]ORATORYCLIA [id number] [address] Hematocrit (Bld) [Volume fraction] 31.4 % Low 39.0-51.0 [facility] Comment on above: Order Comment: Speci men Type: BLOOD SPECIMENOrdering Facility: [facility] Address: [address] [place] [address] Performed By: #### 5 8410-2 ####[facility]ATORYCLIA [id number] [address] Hemoglobin (Bld) [Mass/Vol] 9.3 g/dL Low 13.0-17.0 [facility] Comment on above: Order Comment: Speci men Type: BLOOD SPECIMENOrdering Facility: [facility] Address: [address] [place] [address] Performed By: #### 5 8410-2 ####[facility]ORATORYCLIA [id number] [address] MCH (RBC) [Entitic mass] 27.0 pg Normal 26.0-34.0 [facility] Comment on above: Order Comment: Speci men Type: BLOOD SPECIMENOrdering Facility: [facility] Address: [address] [place] [address] Performed By: #### 5 8410-2 ####[facility]ORATORYCLIA [id number] [address] [place] OF [facility] MCHC (RBC) [Mass/Vol] 29.6 g/dL Low 30.5-36.0 [facility] Comment on above: Order Comment: Speci men Type: BLOOD SPECIMENOrdering Facility: [facility] Address: [address] [place] [address] Performed By: #### 5 8410-2 ####[facility]ORATORYCLIA [id number] [address] STATES OF [facility] MCV (RBC) [Entitic vol] 91.3 fL Normal 80.0-100.0 [facility] Comment on above: Order Comment: Speci men Type: BLOOD SPECIMENOrdering Facility: [facility] Address: [address] [place] [address] Performed By: #### 5 8410-2 ####[facility]ORATORYCLIA [id number] [address] Nucleated RBC (Bld) [#/Vol] 10*3/uL Normal <0.01 [facility] Comment on above: Order Comment: Speci men Type: BLOOD SPECIMENOrdering Facility: [facility] Address: [address] [place] [address] Performed By: #### 5 8410-2 ####[facility]ORATORYCLIA [id number] [place] [address] [place] Platelet mean volume (Bld) [Entitic vol] 10.3 fL Normal 9.0-12.7 [facility] Comment on above: Order Comment: Speci men Type: BLOOD SPECIMENOrdering Facility: [facility] Address: [address] [place] [address] Performed By: #### 5 8410-2 ####[facility]ATORYCLIA [id number] [address] [place] Platelets (Bld) [#/Vol] 359 10*3/uL Normal 150-400 [facility] Comment on above: Order Comment: Speci men Type: BLOOD SPECIMENOrdering Facility: [facility] Address: [address] [place] [address] Performed By: #### 5 8410-2 ####[facility]ATORYCLIA [id number] [place] [address] [place] RBC (Bld) [#/Vol] 3.44 10*6/uL Low 4.20-6.00 [facility] Comment on above: Order Comment: Speci men Type: BLOOD SPECIMENOrdering Facility: [facility] Address: [address] [place] [address] Performed By: #### 5 8410-2 ####[facility]ORATORYCLIA [id number] [address] [place] WBC (Bld) [#/Vol] 10.73 10*3/uL Normal 3.70-11.00 [facility] Comment on above: Order Comment: Speci men Type: BLOOD SPECIMENOrdering Facility: [facility] Address: [address] [place], [place] [address] Performed By: #### 5 8410-2 ####[facility]ATORYCLIA [id number] [place] [address] [place] Magnesium [facility] Magnesium [Mass/Vol] 2.2 mg/dL Normal 1.7-2.3 [facility] Comment on above: Order Comment: Speci men Type: BLOOD SPECIMENOrdering Facility: [facility] Address: [address] [place] [address] Performed By: #### 2 4321-2, 23832-4 ####[facility]ATORYCLIA [id number] [address] [place] NT-proBNP SerPl-ncon 06-27 Natriuretic peptide.B prohormone N-Terminal [Mass/Vol] 184 pg/mL High <125 [facility] Comment on above: Order Comment: Speci men Type: BLOOD SPECIMENOrdering Facility: [facility] Address: [address] [place] [address] Performed By: #### 3 3762-6 ####[facility]ATORYCLIA [id number] [place] [address] [place] NUTRITIONon 06-27-2021 NUTRITION Normal [facility] THERAPY NTon 06-27-2021 THERAPY NT Normal [facility] THERAPY NT Normal [facility] XR CHEST 1V FRONTALon 2021 XR CHEST 1V FRONTAL Normal [facility] Basic metabolic 2000 panelon 06-26-2021 Anion gap [Moles/Vol] 9 mmol/L Normal 9-18 [facility] Comment on above: Order Comment: Speci men Type: BLOOD SPECIMENOrdering Facility: [facility] Address: [address] [place] [address] Performed By: #### 1 9123-9, 60377-9 ####[facility]ATORYCLIA [id number] [address] [place] Calcium [Mass/Vol] 8.7 mg/dL Normal 8.5-10.2 [facility] Comment on above: Order Comment: Speci men Type: BLOOD SPECIMENOrdering Facility: [facility] Address: [address] [place] [address] Performed By: #### 1 9123-9, 68707-1 ####[facility]ORATORYCLIA [id number] [place] [address] [place] Chloride [Moles/Vol] 105 mmol/L Normal 97-105 [facility] Comment on above: Order Comment: Speci men Type: BLOOD SPECIMENOrdering Facility: [facility] Address: [address] [place] [address] Performed By: #### 1 9123-9, 08813-5 ####[facility]ORATORYCLIA [id number] [address] [place] CO2 [Moles/Vol] 26 mmol/L Normal 22-30 [facility] Comment on above: Order Comment: Speci men Type: BLOOD SPECIMENOrdering Facility: [facility] Address: [address] [place] [address] Performed By: #### 1 9123-9, 80731-9 ####[facility]ORATORYCLIA [id number] [place] [address] [place] Creatinine [Mass/Vol] 0.56 mg/dL Low 0.73-1.22 [facility] Comment on above: Order Comment: Speci men Type: BLOOD SPECIMENOrdering Facility: [facility] Address: [address] [place] [address] Performed By: #### 1 9123-9, 91366-4 ####[facility]ATORYCLIA [id number] [place] [address] [place] GFR/1.73 sq M.predicted MDRD (S/P/Bld) [Vol rate/Area] mL/min/{1.73_m2} Normal [facility] Comment on above: Order Comment: Speci men Type: BLOOD SPECIMENOrdering Facility: [facility] Address: [address] [place] [address] Result Comment: >60e GFR (Estimated GFR) Units [...] actual GFR. Performed By: #### 1 9123-9, 57726-1 ####[facility] INDIANACLIA [id number] [place] [id number] [place] Glucose [Mass/Vol] 134 mg/dL High 74-99 [facility] Comment on above: Order Comment: Shira feldman Type: BLOOD SPECIMENOrdering Facility: [facility] Address: [address] [place], [place] [phone] Result Comment: The [place] [employer] (ADA) provides guidance for cutoff [...] Standards of Medical Care in Diabetes 2016, [place] [employer]. Diabetes Care. 2016.39(Suppl 1). Performed By: #### 1 9123-9, 70324-9 ####[facility]ORATORYCLIA [id number] [place] [address] [place] Potassium [Moles/Vol] 3.8 mmol/L Normal 3.7-5.1 [facility] Comment on above: Order Comment: Shira feldman Type: BLOOD SPECIMENOrdering Facility: [facility] Address: [address] [place] [phone] Performed By: #### 1 9123-9, 92408-8 ####[facility]ORATORYCLIA [id number] [address] [place] [facility] Sodium [Moles/Vol] 140 mmol/L Normal 136-144 [facility] Comment on above: Order Comment: Speci men Type: BLOOD SPECIMENOrdering Facility: [facility] Address: [address] [place] [address] Performed By: #### 1 9123-9, 06591-6 ####[facility]ORATORYCLIA [id number] [address] [place] Urea nitrogen [Mass/Vol] 24 mg/dL Normal 9-24 [facility] Comment on above: Order Comment: Speci men Type: BLOOD SPECIMENOrdering Facility: [facility] Address: [address] [place] [address] Performed By: #### 1 9123-9, 07976-1 ####[facility]ORATORYCLIA [id number] [address] [place] [facility] CBC panel Auto (Bld)on 06-26 Erythrocyte distribution width (RBC) [Ratio] 15.9 % High 11.5-15.0 [facility] Comment on above: Order Comment: Speci men Type: BLOOD SPECIMENOrdering Facility: [facility] Address: [address] [place] [address] Performed By: #### 5 8410-2 ####[facility]ORATORYCLIA [id number] [address] Hematocrit (Bld) [Volume fraction] 29.8 % Low 39.0-51.0 [facility] Comment on above: Order Comment: Speci men Type: BLOOD SPECIMENOrdering Facility: [facility] Address: [address] [place] [address] Performed By: #### 5 8410-2 ####[facility]ORATORYCLIA [id number] [address] Hemoglobin (Bld) [Mass/Vol] 9.1 g/dL Low 13.0-17.0 [facility] Comment on above: Order Comment: Speci men Type: BLOOD SPECIMENOrdering Facility: [facility] Address: [address] [place] [address] Performed By: #### 5 8410-2 ####[facility]ORATORYCLIA [id number] [address] [place] [facility] MCH (RBC) [Entitic mass] 27.8 pg Normal 26.0-34.0 [facility] Comment on above: Order Comment: Speci men Type: BLOOD SPECIMENOrdering Facility: [facility] Address: [address] [place] [address] Performed By: #### 5 8410-2 ####[facility]ORATORYCLIA [id number] [address] [place] [facility] MCHC (RBC) [Mass/Vol] 30.5 g/dL Normal 30.5-36.0 [facility] Comment on above: Order Comment: Speci men Type: BLOOD SPECIMENOrdering Facility: [facility] Address: [address] [place] [address] Performed By: #### 5 8410-2 ####[facility]ORATORYCLIA [id number] [address] [place] [facility] MCV (RBC) [Entitic vol] 91.1 fL Normal 80.0-100.0 [facility] Comment on above: Order Comment: Speci men Type: BLOOD SPECIMENOrdering Facility: [facility] Address: [address] [place] [address] Performed By: #### 5 8410-2 ####[facility]ORATORYCLIA [id number] [address] Nucleated RBC (Bld) [#/Vol] 10*3/uL Normal <0.01 [facility] Comment on above: Order Comment: Speci men Type: BLOOD SPECIMENOrdering Facility: [facility] Address: [address] [place] [address] Performed By: #### 5 8410-2 ####[facility]ORATORYCLIA [id number] [address] [place] Platelet mean volume (Bld) [Entitic vol] 10.3 fL Normal 9.0-12.7 [facility] Comment on above: Order Comment: Speci men Type: BLOOD SPECIMENOrdering Facility: [facility] Address: [address] [place] [address] Performed By: #### 5 8410-2 ####[facility]ORATORYCLIA [id number] [place] [address] [place] Platelets (Bld) [#/Vol] 336 10*3/uL Normal 150-400 [facility] Comment on above: Order Comment: Speci men Type: BLOOD SPECIMENOrdering Facility: [facility] Address: [address] [place] [address] Performed By: #### 5 8410-2 ####[facility]ORATORYCLIA [id number] [address] [place] RBC (Bld) [#/Vol] 3.27 10*6/uL Low 4.20-6.00 [facility] Comment on above: Order Comment: Speci men Type: BLOOD SPECIMENOrdering Facility: [facility] Address: [address] [place] [address] Performed By: #### 5 8410-2 ####[facility]ORATORYCLIA [id number] [place] [address] [place] WBC (Bld) [#/Vol] 9.14 10*3/uL Normal 3.70-11.00 [facility] Comment on above: Order Comment: Speci men Type: BLOOD SPECIMENOrdering Facility: [facility] Address: [address] [place] [address] Performed By: #### 5 8410-2 ####[facility]ORATORYCLIA [id number] [address] [place] CONSULT PROGon 06-26-2021 CONSULT PROG Normal [facility] Magnesium SerPl-mCncon 06-26 Magnesium [Mass/Vol] 2.2 mg/dL Normal 1.7-2.3 [facility] Comment on above: Order Comment: Speci men Type: BLOOD SPECIMENOrdering Facility: [facility] Address: [address] [place] [address] Performed By: #### 1 9123-9, 28186-6 ####[facility]ORATORYCLIA [id number] [address] [place] NURSING PROGon 06-26-2021 NURSING PROG Normal [facility] NURSING PROG Normal [facility] Basic metabolic 2000 panelon 06-25-2021 Anion gap [Moles/Vol] 8 mmol/L Low 9-18 [facility] Comment on above: Order Comment: Speci men Type: BLOOD SPECIMENOrdering Facility: [facility] Address: [address] [place] [address] Performed By: #### 2 432-2, ####[facility]ORATORYCLIA [id number] [place] [address] [place] Calcium [Mass/Vol] 8.8 mg/dL Normal 8.5-10.2 [facility] Comment on above: Order Comment: Speci men Type: BLOOD SPECIMENOrdering Facility: [facility] Address: [address] [place] [address] Performed By: #### 2 432-2, ####[facility]ORATORYCLIA [id number] [place] [address] [place] Chloride [Moles/Vol] 105 mmol/L Normal 97-105 [facility] Comment on above: Order Comment: Speci men Type: BLOOD SPECIMENOrdering Facility: [facility] Address: [address] [place] [address] Performed By: #### 2 4321-2, ####[facility]ORATORYCLIA [id number] [place] [address] [place] CO2 [Moles/Vol] 27 mmol/L Normal 22-30 [facility] Comment on above: Order Comment: Speci men Type: BLOOD SPECIMENOrdering Facility: [facility] Address: [address] [place] [address] Performed By: #### 2 432-, ####[facility]ORATORYCLIA [id number] [place] [address] [place] Creatinine [Mass/Vol] 0.59 mg/dL Low 0.73-1.22 [facility] Comment on above: Order Comment: Speci men Type: BLOOD SPECIMENOrdering Facility: [facility] Address: [address] [place] [address] Performed By: #### 2 43205-08, ####[facility]ORATORYCLIA [id number] [address] [place] GFR/1.73 sq M.predicted MDRD (S/P/Bld) [Vol rate/Area] mL/min/{1.73_m2} Normal [facility] Comment on above: Order Comment: [facility] Type: BLOOD SPECIMENOrdering Facility: [facility] Address: [address] [place] [address] Result Comment: >60e GFR (Estimated GFR) Units [...] actual GFR. Performed By: #### 2 43205-08, ####[facility]ORATORYCLIA [id number] [place] [id number] [place] Glucose [Mass/Vol] 132 mg/dL High 74-99 [facility] Comment on above: Order Comment: Speci men Type: BLOOD SPECIMENOrdering Facility: [facility] Address: [address] [place] [phone] Result Comment: The [place] [employer] Association (ADA) provides guidance for cutoff [...] Standards of Medical Care in Diabetes 2016, [place] [employer]. Diabetes Care. 2016.39(Suppl 1). Performed By: #### 2 4320-, ####[facility]ORATORYCLIA [id number] [place] [address] [place] Potassium [Moles/Vol] 3.9 mmol/L Normal 3.7-5.1 [facility] Comment on above: Order Comment: Speci [facility] Type: BLOOD SPECIMENOrdering Facility: [facility] Address: [address] [place], [place] [address] Performed By: #### 2 4320-06, ####[facility]ATORYCLIA [id number] [place] [address] [place] Sodium [Moles/Vol] 140 mmol/L Normal 136-144 [facility] Comment on above: Order Comment: Speci men Type: BLOOD SPECIMENOrdering Facility: [facility] Address: [address] [place] [address] Performed By: #### 2 4320-06, ####[facility]ATORYCLIA [id number] [place] [address] [place] Urea nitrogen [Mass/Vol] 24 mg/dL Normal 9-24 [facility] Comment on above: Order Comment: Speci men Type: BLOOD SPECIMENOrdering Facility: [facility] Address: [address] [address] Performed By: #### 2 4321-2, 72096-8 ####[facility]ATORYCLIA [id number] [address] CASE MANAGEMon 06-25-2021 CASE MANAGEM Normal [facility] CBC panel Auto (Bld)on 06-25 Erythrocyte distribution width (RBC) [Ratio] 15.9 % High 11.5-15.0 [facility] Comment on above: Order Comment: Speci men Type: BLOOD SPECIMENOrdering Facility: [facility] Address: [address] [place] [address] Performed By: #### 5 8410-2 ####[facility]ATORYCLIA [id number] [address] Hematocrit (Bld) [Volume fraction] 31.0 % Low 39.0-51.0 [facility] Comment on above: Order Comment: Speci men Type: BLOOD SPECIMENOrdering Facility: [facility] Address: [address] [place] [address] Performed By: #### 5 8410-2 ####[facility]ATORYCLIA [id number] [address] Hemoglobin (Bld) [Mass/Vol] 9.4 g/dL Low 13.0-17.0 [facility] Comment on above: Order Comment: Speci men Type: BLOOD SPECIMENOrdering Facility: [facility] Address: [address] [place] [address] Performed By: #### 5 8410-2 ####[facility]ATORYCLIA [id number] [address] [place] [facility] MCH (RBC) [Entitic mass] 28.1 pg Normal 26.0-34.0 [facility] Comment on above: Order Comment: Speci men Type: BLOOD SPECIMENOrdering Facility: [facility] Address: [address] [address] Performed By: #### 5 8410-2 ####[facility]ATORYCLIA [id number] [address] STATES OF [facility] MCHC (RBC) [Mass/Vol] 30.3 g/dL Low 30.5-36.0 [facility] Comment on above: Order Comment: Speci men Type: BLOOD SPECIMENOrdering Facility: [facility] Address: [address] [place] [address] Performed By: #### 5 8410-2 ####[facility]ATORYCLIA [id number] [address] [place] MCV (RBC) [Entitic vol] 92.5 fL Normal 80.0-100.0 [facility] Comment on above: Order Comment: Speci men Type: BLOOD SPECIMENOrdering Facility: [facility] Address: [address] [place] [address] Performed By: #### 5 8410-2 ####[facility]ATORYCLIA [id number] [address] STATES OF [facility] Nucleated RBC (Bld) [#/Vol] 10*3/uL Normal <0.01 [facility] Comment on above: Order Comment: Speci men Type: BLOOD SPECIMENOrdering Facility: [facility] Address: [address] [place] [address] Performed By: #### 5 8410-2 ####[facility]ATORYCLIA [id number] [address] [place] Platelet mean volume (Bld) [Entitic vol] 10.5 fL Normal 9.0-12.7 [facility] Comment on above: Order Comment: Speci men Type: BLOOD SPECIMENOrdering Facility: [facility] Address: [address] [place] [address] Performed By: #### 5 8410-2 ####[facility]ATORYCLIA [id number] [address] [place] Platelets (Bld) [#/Vol] 311 10*3/uL Normal 150-400 [facility] Comment on above: Order Comment: Speci men Type: BLOOD SPECIMENOrdering Facility: [facility] Address: [address] [place] [address] Performed By: #### 5 8410-2 ####[facility]ATORYCLIA [id number] [address] OF [facility] RBC (Bld) [#/Vol] 3.35 10*6/uL Low 4.20-6.00 [facility] Comment on above: Order Comment: Speci men Type: BLOOD SPECIMENOrdering Facility: [facility] Address: [address] [place] [address] Performed By: #### 5 8410-2 ####[facility]ATORYCLIA [id number] [address] WBC (Bld) [#/Vol] 9.57 10*3/uL Normal 3.70-11.00 [facility] Comment on above: Order Comment: Speci men Type: BLOOD SPECIMENOrdering Facility: [facility] Address: [address] [place] [address] Performed By: #### 5 8410-2 ####[facility]ATORYCLIA [id number] [address] Magnesium SerPl-mCncon 06-25 Magnesium [Mass/Vol] 2.4 mg/dL High 1.7-2.3 [facility] Comment on above: Order Comment: Speci men Type: BLOOD SPECIMENOrdering Facility: [facility] Address: [address] [place] [address] Performed By: #### 2 4321-2, 83251-3 ####[facility]ATORYCLIA [id number] [address] Basic metabolic 2000 panelon 06-24-2021 Anion gap [Moles/Vol] 9 mmol/L Normal -18 [facility] Comment on above: Order Comment: Speci men Type: BLOOD SPECIMENOrdering Facility: [facility] Address: [address] [place] [address] Performed By: #### 1 239, 02880-7 ####[facility]ATORYCLIA [id number] [place] [address] [place] Calcium [Mass/Vol] 8.6 mg/dL Normal 8.5-10.2 [facility] Comment on above: Order Comment: Speci men Type: BLOOD SPECIMENOrdering Facility: [facility] Address: [address] [place] [address] Performed By: #### 1 239, 23442-6 ####[facility]ORATORYCLIA [id number] [place] [address] [place] Chloride [Moles/Vol] 103 mmol/L Normal 97-105 [facility] Comment on above: Order Comment: Speci men Type: BLOOD SPECIMENOrdering Facility: [facility] Address: [address] [place] [address] Performed By: #### 1 9123-01, 36079-2 ####[facility]ATORYCLIA [id number] [place] [address] [place] CO2 [Moles/Vol] 26 mmol/L Normal 22-30 [facility] Comment on above: Order Comment: Speci men Type: BLOOD SPECIMENOrdering Facility: [facility] Address: [address] [place] [address] Performed By: #### 1 9123-01, ####[facility]ATORYCLIA [id number] [place] [address] [place] Creatinine [Mass/Vol] 0.60 mg/dL Low 0.73-1.22 [facility] Comment on above: Order Comment: Speci men Type: BLOOD SPECIMENOrdering Facility: [facility] Address: [address] [place] [address] Performed By: #### 1 9, 19352-6 ####[facility]ORATORYCLIA [id number] [place] [address] [place] GFR/1.73 sq M.predicted MDRD (S/P/Bld) [Vol rate/Area] mL/min/{1.73_m2} Normal [facility] Comment on above: Order Comment: Shira feldman Type: BLOOD SPECIMENOrdering Facility: [facility] Address: [address] [place] [address] Result Comment: >60e GFR (Estimated GFR) Units [...] actual GFR. Performed By: #### 1 9123-9, 65650-2 ####[facility]ATORYCLIA [id number] [place] [address] [place] Glucose [Mass/Vol] 126 mg/dL High 74-99 [facility] Comment on above: Order Comment: Shira feldman Type: BLOOD SPECIMENOrdering Facility: [facility] Address: [address] [place] [address] Result Comment: The [place] [employer] (ADA) provides guidance for cutoff [...] Standards of Medical Care in Diabetes 2016, [place] [employer]. Diabetes Care. 2016.39(Suppl 1). Performed By: #### 1 9123-9, 89704-1 ####[facility]ATORYCLIA [id number] [place] [id number] [place] Potassium [Moles/Vol] 3.9 mmol/L Normal 3.7-5.1 [facility] Comment on above: Order Comment: Speci men Type: BLOOD SPECIMENOrdering Facility: [facility] Address: [address] [place] [address] Performed By: #### 1 9123-9, 48468-5 ####[facility]ATORYCLIA [id number] [address] [place] [facility] Sodium [Moles/Vol] 138 mmol/L Normal 136-144 [facility] Comment on above: Order Comment: Speci men Type: BLOOD SPECIMENOrdering Facility: [facility] Address: [address] [place] [address] Performed By: #### 1 9123-9, 20212-7 ####[facility]ATORYCLIA [id number] [address] [place] Urea nitrogen [Mass/Vol] 24 mg/dL Normal 9-24 [facility] Comment on above: Order Comment: Speci men Type: BLOOD SPECIMENOrdering Facility: [facility] Address: [address] [place] [address] Performed By: #### 1 9123-9, 91237-7 ####[facility]ATORYCLIA [id number] [address] [place] CASE MANAGEMon 06-24-2021 CASE MANAGEM Normal [facility] CASE MANAGEM Normal [facility] CASE MANAGEM Normal [facility] CBC panel Auto (Bld)on 06-24 Erythrocyte distribution width (RBC) [Ratio] 16.1 % High 11.5-15.0 [facility] Comment on above: Order Comment: Speci men Type: BLOOD SPECIMENOrdering Facility: [facility] Address: [address] [place] [address] Performed By: #### 5 8410-2 ####[facility]ATORYCLIA [id number] [address] [place] Hematocrit (Bld) [Volume fraction] 31.7 % Low 39.0-51.0 [facility] Comment on above: Order Comment: Speci men Type: BLOOD SPECIMENOrdering Facility: [facility] Address: [address] [place] [address] Performed By: #### 5 8410-2 ####[facility]ATORYCLIA [id number] [address] STATES [facility] Hemoglobin (Bld) [Mass/Vol] 9.7 g/dL Low 13.0-17.0 [facility] Comment on above: Order Comment: Speci men Type: BLOOD SPECIMENOrdering Facility: [facility] Address: [address] [place] [address] Performed By: #### 5 8410-2 ####[facility]ATORYCLIA [id number] [address] STATES [facility] MCH (RBC) [Entitic mass] 28.0 pg Normal 26.0-34.0 [facility] Comment on above: Order Comment: Speci men Type: BLOOD SPECIMENOrdering Facility: [facility] Address: [address] [place] [address] Performed By: #### 5 8410-2 ####[facility]ATORYCLIA [id number] [address] MCHC (RBC) [Mass/Vol] 30.6 g/dL Normal 30.5-36.0 [facility] Comment on above: Order Comment: Speci men Type: BLOOD SPECIMENOrdering Facility: [facility] Address: [address] [place] [address] Performed By: #### 5 8410-2 ####[facility]ATORYCLIA [id number] [address] [place] MCV (RBC) [Entitic vol] 91.4 fL Normal 80.0-100.0 [facility] Comment on above: Order Comment: Speci men Type: BLOOD SPECIMENOrdering Facility: [facility] Address: [address] [place] [address] Performed By: #### 5 8410-2 ####[facility]ATORYCLIA [id number] [address] [place] Nucleated RBC (Bld) [#/Vol] 10*3/uL Normal <0.01 [facility] Comment on above: Order Comment: Speci men Type: BLOOD SPECIMENOrdering Facility: [facility] Address: [address] [place] [address] Performed By: #### 5 8410-2 ####[facility]ATORYCLIA [id number] [address] [place] Platelet mean volume (Bld) [Entitic vol] 11.0 fL Normal 9.0-12.7 [facility] Comment on above: Order Comment: Speci men Type: BLOOD SPECIMENOrdering Facility: [facility] Address: [address] [place] [address] Performed By: #### 5 8410-2 ####[facility]ATORYCLIA [id number] [address] [place] Platelets (Bld) [#/Vol] 358 10*3/uL Normal 150-400 [facility] Comment on above: Order Comment: Speci men Type: BLOOD SPECIMENOrdering Facility: [facility] Address: [address] [place] [address] Performed By: #### 5 8410-2 ####[facility]ATORYCLIA [id number] [address] [place] RBC (Bld) [#/Vol] 3.47 10*6/uL Low 4.20-6.00 [facility] Comment on above: Order Comment: Speci men Type: BLOOD SPECIMENOrdering Facility: [facility] Address: [address] [place] [address] Performed By: #### 5 8410-2 ####[facility]ATORYCLIA [id number] [address] [place] WBC (Bld) [#/Vol] 10.07 10*3/uL Normal 3.70-11.00 [facility] Comment on above: Order Comment: Speci men Type: BLOOD SPECIMENOrdering Facility: [facility] Address: [address] [place] [address] Performed By: #### 5 8410-2 ####[facility]ATORYCLIA [id number] [place] [address] [place] Magnesium SerPl-mCncon 06-24 Magnesium [Mass/Vol] 2.3 mg/dL Normal 1.7-2.3 [facility] Comment on above: Order Comment: Speci men Type: BLOOD SPECIMENOrdering Facility: [facility] Address: [address] [place] [address] Performed By: #### 1 9123-9, 80733-5 ####[facility]ATORYCLIA [id number] [place] [address] [place] ALLIED HEALTHon 06-23-2021 ALLIED HEALTH Normal [facility] Basic metabolic 2000 panelon 06-23-2021 Anion gap [Moles/Vol] 9 mmol/L Normal 9-18 [facility] Comment on above: Order Comment: Speci men Type: BLOOD SPECIMENOrdering Facility: [facility] Address: [address] [place] [address] Performed By: #### 1 9123-9, 28179-6 ####[facility]ATORYCLIA [id number] [place] [address] [place] Calcium [Mass/Vol] 8.4 mg/dL Low 8.5-10.2 [facility] Comment on above: Order Comment: Speci men Type: BLOOD SPECIMENOrdering Facility: [facility] Address: [address] [place] [address] Performed By: #### 1 9123-9, 78459-7 ####[facility]ATORYCLIA [id number] [place] [address] [place] Chloride [Moles/Vol] 104 mmol/L Normal 97-105 [facility] Comment on above: Order Comment: Speci men Type: BLOOD SPECIMENOrdering Facility: [facility] Address: [address] [place] [place] [address] Performed By: #### 1 9123-9, 54572-5 ####[facility]ATORYCLIA [id number] [address] [place] CO2 [Moles/Vol] 26 mmol/L Normal 22-30 [facility] Comment on above: Order Comment: Speci men Type: BLOOD SPECIMENOrdering Facility: [facility] Address: [address] [place] [address] Performed By: #### 1 9123-9, 39189-8 ####[facility]ATORYCLIA [id number] [address] [place] Creatinine [Mass/Vol] 0.62 mg/dL Low 0.73-1.22 [facility] Comment on above: Order Comment: Speci men Type: BLOOD SPECIMENOrdering Facility: [facility] Address: [address] [place] [address] Performed By: #### 1 91239, 22847-1 ####[facility]ATORYCLIA [id number] [place] [address] [place] GFR/1.73 sq M.predicted MDRD (S/P/Bld) [Vol rate/Area] mL/min/{1.73_m2} Normal [facility] Comment on above: Order Comment: Speci men Type: BLOOD SPECIMENOrdering Facility: [facility] Address: [address] [place] [address] Result Comment: >60e GFR (Estimated GFR) Units [...] reflect actual GFR. Performed By: #### 1 9123- ####[facility]ATORYCLIA [id number] [place] [address] [place] Glucose [Mass/Vol] 111 mg/dL High 74-99 [facility] Comment on above: Order Comment: Speci men Type: BLOOD SPECIMENOrdering Facility: [facility] Address: [address] [place] [address] Result Comment: The [place] [employer] (ADA) provides guidance for cutoff [...] Standards of Medical Care in Diabetes 2016, [place] [employer]. Diabetes Care. 2016.39(Suppl 1). Performed By: #### 1 91 ####[facility]ATORYCLIA [id number] [place] [address] [place] Potassium [Moles/Vol] 4.1 mmol/L Normal 3.7-5.1 [facility] Comment on above: Order Comment: Speci men Type: BLOOD SPECIMENOrdering Facility: [facility] Address: [address] [place] [address] Performed By: #### 1 ####[facility]ATORYCLIA [id number] [place] [address] [place] Sodium [Moles/Vol] 139 mmol/L Normal 136-144 [facility] Comment on above: Order Comment: Speci men Type: BLOOD SPECIMENOrdering Facility: [facility] Address: [address] [place] [address] Performed By: #### 1 9123 ####[facility]ORATORYCLIA [id number] [place] [address] [place] Urea nitrogen [Mass/Vol] 26 mg/dL High 9-24 [facility] Comment on above: Order Comment: Speci men Type: BLOOD SPECIMENOrdering Facility: [facility] Address: [address] [place] [address] Performed By: #### 1 9123-9, 67640-7 ####[facility]ATORYCLIA [id number] [address] [place] CASE MANAGEMon 06-23-2021 CASE MANAGEM Normal [facility] CBC panel Auto (Bld)on 06-23 Erythrocyte distribution width (RBC) [Ratio] 16.0 % High 11.5-15.0 [facility] Comment on above: Order Comment: Speci men Type: BLOOD SPECIMENOrdering Facility: [facility] Address: [address] [place] [address] Performed By: #### 5 8410-2 ####[facility]ATORYCLIA [id number] [address] [place] Hematocrit (Bld) [Volume fraction] 31.1 % Low 39.0-51.0 [facility] Comment on above: Order Comment: Speci men Type: BLOOD SPECIMENOrdering Facility: [facility] Address: [address] [place] [address] Performed By: #### 5 8410-2 ####[facility]ATORYCLIA [id number] [place] [address] [place] Hemoglobin (Bld) [Mass/Vol] 9.5 g/dL Low 13.0-17.0 [facility] Comment on above: Order Comment: Speci men Type: BLOOD SPECIMENOrdering Facility: [facility] Address: [address] [place] [address] Performed By: #### 5 8410-2 ####[facility]ATORYCLIA [id number] [place] [address] [place] MCH (RBC) [Entitic mass] 28.1 pg Normal 26.0-34.0 [facility] Comment on above: Order Comment: Speci men Type: BLOOD SPECIMENOrdering Facility: [facility] Address: [address] [place] [address] Performed By: #### 5 8410-2 ####[facility]ATORYCLIA [id number] [address] MCHC (RBC) [Mass/Vol] 30.5 g/dL Normal 30.5-36.0 [facility] Comment on above: Order Comment: Speci men Type: BLOOD SPECIMENOrdering Facility: [facility] Address: [address] [place] [address] Performed By: #### 5 8410-2 ####[facility]ATORYCLIA [id number] [address] [place] MCV (RBC) [Entitic vol] 92.0 fL Normal 80.0-100.0 [facility] Comment on above: Order Comment: Speci men Type: BLOOD SPECIMENOrdering Facility: [facility] Address: [address] [place] [address] Performed By: #### 5 8410-2 ####[facility]ATORYCLIA [id number] [address] Nucleated RBC (Bld) [#/Vol] 10*3/uL Normal <0.01 [facility] Comment on above: Order Comment: Speci men Type: BLOOD SPECIMENOrdering Facility: [facility] Address: [address] [place] [address] Performed By: #### 5 8410-2 ####[facility]ATORYCLIA [id number] [address] Platelet mean volume (Bld) [Entitic vol] 11.0 fL Normal 9.0-12.7 [facility] Comment on above: Order Comment: Speci men Type: BLOOD SPECIMENOrdering Facility: [facility] Address: [address] [place] [address] Performed By: #### 5 8410-2 ####[facility]ATORYCLIA [id number] [place] [address] [place] Platelets (Bld) [#/Vol] 361 10*3/uL Normal 150-400 [facility] Comment on above: Order Comment: Speci men Type: BLOOD SPECIMENOrdering Facility: [facility] Address: [address] [place] [address] Performed By: #### 5 8410-2 ####[facility]ATORYCLIA [id number] [place] [address] [place] RBC (Bld) [#/Vol] 3.38 10*6/uL Low 4.20-6.00 [facility] Comment on above: Order Comment: Speci men Type: BLOOD SPECIMENOrdering Facility: [facility] Address: [address] [place] [address] Performed By: #### 5 8410-2 ####[facility]ATORYCLIA [id number] [address] [place] [facility] WBC (Bld) [#/Vol] 9.02 10*3/uL Normal 3.70-11.00 [facility] Comment on above: Order Comment: Speci men Type: BLOOD SPECIMENOrdering Facility: [facility] Address: [address] [place] [address] Performed By: #### 5 8410-2 ####[facility]ATORYCLIA [id number] [address] [place] CONSULT PROGon 06-23-2021 CONSULT PROG Normal [facility] CONSULT PROG Normal [facility] Magnesium SerPl-mCncon 06-23 Magnesium [Mass/Vol] 2.4 mg/dL High 1.7-2.3 [facility] Comment on above: Order Comment: Speci men Type: BLOOD SPECIMENOrdering Facility: [facility] Address: [address] [place] [address] Performed By: #### 1 9123-9, 78779-7 ####[facility]ATORYCLIA [id number] [address] [place] THERAPY NTon 06-23-2021 THERAPY NT Normal [facility] Vancomycin random [Mass/Vol] on 06-23-2021 Vancomycin [Mass/Vol] 22.8 ug/mL High 10.0-20.0 [facility] Comment on above: Order Comment: Speci men Type: BLOOD SPECIMENOrdering Facility: [facility] Address: [address] [place] [address] Result Comment: Refe rence ranges and high/low indicator flags are provided as general guidelines only. The treating physician must determine appropriate target levels/dosing based on the specific clinical situation. Performed By: #### 4 091-5 ####[facility]ATORYCLIA [id number] [address] [place] XR MOD BARIUM SWALLOW W SPEE Lore 06-23-2021 XR MOD BARIUM SWALLOW W SPEECH Normal [facility] Basic metabolic 2000 panelon 06-22-2021 Anion gap [Moles/Vol] 6 mmol/L Low 9-18 [facility] Comment on above: Order Comment: Speci men Type: BLOOD SPECIMENOrdering Facility: [facility] Address: [address] [place] [address] Performed By: #### 2 4321-2, 31801-4 ####[facility]ORATORYCLIA [id number] [place] [address] [place] Calcium [Mass/Vol] 8.5 mg/dL Normal 8.5-10.2 [facility] Comment on above: Order Comment: Speci men Type: BLOOD SPECIMENOrdering Facility: [facility] Address: [address] [place] [address] Performed By: #### 2 4321-2, ####[facility]ATORYCLIA [id number] [place] [address] [place] Chloride [Moles/Vol] 105 mmol/L Normal 97-105 [facility] Comment on above: Order Comment: Speci men Type: BLOOD SPECIMENOrdering Facility: [facility] Address: [address] [place] [address] Performed By: #### 2 432-, ####[facility]ORATORYCLIA [id number] [address] [place] CO2 [Moles/Vol] 26 mmol/L Normal 22-30 [facility] Comment on above: Order Comment: Speci men Type: BLOOD SPECIMENOrdering Facility: [facility] Address: [facility] [place] [address] Performed By: #### 2 4320-06, ####[facility]ATORYCLIA [id number] [place] [address] [place] Creatinine [Mass/Vol] 0.56 mg/dL Low 0.73-1.22 [facility] Comment on above: Order Comment: Speci men Type: BLOOD SPECIMENOrdering Facility: [facility] Address: [facility] [place] [address] Performed By: #### 2 43205-08, ####[facility]ATORYCLIA [id number] [place] [address] [place] GFR/1.73 sq M.predicted MDRD (S/P/Bld) [Vol rate/Area] mL/min/{1.73_m2} Normal [facility] Comment on above: Order Comment: Speci men Type: BLOOD SPECIMENOrdering Facility: [facility] Address: [facility] [place] [address] Result Comment: >60e GFR (Estimated GFR) Units [...] actual GFR. Performed By: #### 2 43205-08, ####[facility]ATORYCLIA [id number] [place] [address] [place] Glucose [Mass/Vol] 120 mg/dL High 74-99 [facility] Comment on above: Order Comment: Speci men Type: BLOOD SPECIMENOrdering Facility: [facility] Address: [address] [place] [address] Result Comment: The [place] [employer] (ADA) provides guidance for cutoff [...] Standards of Medical Care in Diabetes 2016, [place] [employer]. Diabetes Care. 2016.39(Suppl 1). Performed By: #### 2 4320-06, ####[facility]ATORYCLIA [id number] [place] [address] [place] Potassium [Moles/Vol] 4.0 mmol/L Normal 3.7-5.1 [facility] Comment on above: Order Comment: Speci men Type: BLOOD SPECIMENOrdering Facility: [facility] Address: [address] [place] [address] Performed By: #### 2 4320-06, ####[facility]ATORYCLIA [id number] [place] [address] [place] Sodium [Moles/Vol] 137 mmol/L Normal 136-144 [facility] Comment on above: Order Comment: Johni men Type: BLOOD SPECIMENOrdering Facility: [facility] Address: [address] [place] [address] Performed By: #### 2 4320-06, ####[facility]ATORYCLIA [id number] [address] [place] Urea nitrogen [Mass/Vol] 25 mg/dL High 9-24 [facility] Comment on above: Order Comment: Speci men Type: BLOOD SPECIMENOrdering Facility: [facility] Address: [address] [place] [address] Performed By: #### 2 4321-2, 85862-5 ####[facility]ATORYCLIA [id number] [address] [place] CASE MANAGEMon 06-22-2021 CASE MANAGEM Normal [facility] CBC panel Auto (Bld)on 06-22 Erythrocyte distribution width (RBC) [Ratio] 16.0 % High 11.5-15.0 [facility] Comment on above: Order Comment: Speci men Type: BLOOD SPECIMENOrdering Facility: [facility] Address: [address] [place] [address] Performed By: #### 5 8410-2 ####[facility]ATORYCLIA [id number] [address] [place] Hematocrit (Bld) [Volume fraction] 30.5 % Low 39.0-51.0 [facility] Comment on above: Order Comment: Speci men Type: BLOOD SPECIMENOrdering Facility: [facility] Address: [address] [place] [address] Performed By: #### 5 8410-2 ####[facility]ATORYCLIA [id number] [address] [place] Hemoglobin (Bld) [Mass/Vol] 9.3 g/dL Low 13.0-17.0 [facility] Comment on above: Order Comment: Speci men Type: BLOOD SPECIMENOrdering Facility: [facility] Address: [address] [place] [address] Performed By: #### 5 8410-2 ####[facility]ATORYCLIA [id number] [place] [address] [place] MCH (RBC) [Entitic mass] 28.4 pg Normal 26.0-34.0 [facility] Comment on above: Order Comment: Speci men Type: BLOOD SPECIMENOrdering Facility: [facility] Address: [address] [place] [address] Performed By: #### 5 8410-2 ####[facility]ATORYCLIA [id number] [address] MCHC (RBC) [Mass/Vol] 30.5 g/dL Normal 30.5-36.0 [facility] Comment on above: Order Comment: Speci men Type: BLOOD SPECIMENOrdering Facility: [facility] Address: [address] [place] [address] Performed By: #### 5 8410-2 ####[facility]ATORYCLIA [id number] [address] [place] MCV (RBC) [Entitic vol] 93.3 fL Normal 80.0-100.0 [facility] Comment on above: Order Comment: Speci men Type: BLOOD SPECIMENOrdering Facility: [facility] Address: [address] [place] [address] Performed By: #### 5 8410-2 ####[facility]ATORYCLIA [id number] [address] Nucleated RBC (Bld) [#/Vol] 10*3/uL Normal <0.01 [facility] Comment on above: Order Comment: Speci men Type: BLOOD SPECIMENOrdering Facility: [facility] Address: [address] [place] [address] Performed By: #### 5 8410-2 ####[facility]ATORYCLIA [id number] [address] Platelet mean volume (Bld) [Entitic vol] 11.5 fL Normal 9.0-12.7 [facility] Comment on above: Order Comment: Speci men Type: BLOOD SPECIMENOrdering Facility: [facility] Address: [address] [place] [address] Performed By: #### 5 8410-2 ####[facility]ATORYCLIA [id number] [address] STATES OF [facility] Platelets (Bld) [#/Vol] 346 10*3/uL Normal 150-400 [facility] Comment on above: Order Comment: Speci men Type: BLOOD SPECIMENOrdering Facility: [facility] Address: [address] [place] [address] Performed By: #### 5 8410-2 ####[facility]ATORYCLIA [id number] [address] [place] RBC (Bld) [#/Vol] 3.27 10*6/uL Low 4.20-6.00 [facility] Comment on above: Order Comment: Speci men Type: BLOOD SPECIMENOrdering Facility: [facility] Address: [address] [place] [address] Performed By: #### 5 8410-2 ####[facility]ATORYCLIA [id number] [address] WBC (Bld) [#/Vol] 9.44 10*3/uL Normal 3.70-11.00 [facility] Comment on above: Order Comment: Speci men Type: BLOOD SPECIMENOrdering Facility: [facility] Address: [address] [place] [address] Performed By: #### 5 8410-2 ####[facility]ATORYCLIA [id number] [address] [place] HEMOGLOBIN (HGB)on 2 Hemoglobin (Bld) [Mass/Vol] 9.7 g/dL Low 13.0-17.0 [facility] Comment on above: Order Comment: Speci men Type: BLOOD SPECIMENOrdering Facility: [facility] Address: [address] [place] [address] Performed By: #### H GB ####[facility]ATORYCLIA [id number] [address] [place] Magnesium SerPl-mCncon 06-22 Magnesium [Mass/Vol] 2.4 mg/dL High 1.7-2.3 [facility] Comment on above: Order Comment: Speci men Type: BLOOD SPECIMENOrdering Facility: [facility] Address: [address] [place] [address] Performed By: #### 2 4321-2, ####[facility]ATORYCLIA [id number] [address] OF [facility] THERAPY NTon 06-22-2021 THERAPY NT Normal [facility] THERAPY NT Normal [facility] aPTT PPPon 06-22-2021 aPTT Coag (PPP) [Time] 62.3 s High 23.0-32.4 [facility] Comment on above: Order Comment: Speci men Type: BLOOD SPECIMENOrdering Facility: [facility] Address: [address] [place] [address] Performed By: #### 1 4979-9 ####[facility]ATORYCLIA [id number] [address] [place] ALLIED HEALTHon 06-21-2021 ALLIED HEALTH Normal [facility] Basic metabolic 2000 panelon 06-21-2021 Anion gap [Moles/Vol] 8 mmol/L Low 9-18 [facility] Comment on above: Order Comment: Speci men Type: BLOOD SPECIMENOrdering Facility: [facility] Address: [address] [place] [address] Performed By: #### 2 4321-2, ####[facility]ATORYCLIA [id number] [address] [place] Calcium [Mass/Vol] 8.2 mg/dL Low 8.5-10.2 [facility] Comment on above: Order Comment: Speci men Type: BLOOD SPECIMENOrdering Facility: [facility] Address: [address] [place] [address] Performed By: #### 2 4321-2, ####[facility]ATORYCLIA [id number] [address] Chloride [Moles/Vol] 108 mmol/L High 97-105 [facility] Comment on above: Order Comment: Speci men Type: BLOOD SPECIMENOrdering Facility: [facility] Address: [facility] [address] Performed By: #### 2 432-2, ####[facility]ATORYCLIA [id number] [address] STATES OF [facility] CO2 [Moles/Vol] 24 mmol/L Normal 22-30 [facility] Comment on above: Order Comment: Speci men Type: BLOOD SPECIMENOrdering Facility: [facility] Address: [address] [place] [address] Performed By: #### 2 43205-08, ####[facility]ATORYCLIA [id number] [address] [place] Creatinine [Mass/Vol] 0.61 mg/dL Low 0.73-1.22 [facility] Comment on above: Order Comment: Speci men Type: BLOOD SPECIMENOrdering Facility: [facility] Address: [address] [place] [address] Performed By: #### 2 43205-08, ####[facility]ATORYCLIA [id number] [address] [place] GFR/1.73 sq M.predicted MDRD (S/P/Bld) [Vol rate/Area] mL/min/{1.73_m2} Normal [facility] Comment on above: Order Comment: Speci men Type: BLOOD SPECIMENOrdering Facility: [facility] Address: [address] [place] [address] Result Comment: >60e GFR (Estimated GFR) Units [...] actual GFR. Performed By: #### 2 43205-08, ####[facility]CL[facility] [id number] [place] [address] [place] Glucose [Mass/Vol] 211 mg/dL High 74-99 [facility] Comment on above: Order Comment: Shira feldman Type: BLOOD SPECIMENOrdering Facility: [facility] Address: [address] [place] [address] Result Comment: The [place] [employer] (ADA) provides guidance for cutoff [...] Standards of Medical Care in Diabetes 2016, [place] [employer]. Diabetes Care. 2016.39(Suppl 1). Performed By: #### 2 43205-08, ####[facility]CLIA [id number] [place] [address] [place] Potassium [Moles/Vol] 4.3 mmol/L Normal 3.7-5.1 [facility] Comment on above: Order Comment: Shira feldman Type: BLOOD SPECIMENOrdering Facility: [facility] Address: [address] [place] [phone] Performed By: #### 2 432-, ####[facility]ATORYCLIA [id number] [place] [address] [place] Sodium [Moles/Vol] 140 mmol/L Normal 136-144 [facility] Comment on above: Order Comment: Shira feldman Type: BLOOD SPECIMENOrdering Facility: [facility] Address: [address] [place] [id number] Performed By: #### 2 4321-2, 30635-5 ####[facility]ATORYCLIA [id number] [address] STATES OF [facility] Urea nitrogen [Mass/Vol] 26 mg/dL High 9-24 [facility] Comment on above: Order Comment: Speci men Type: BLOOD SPECIMENOrdering Facility: [facility] Address: [address] [place] [address] Performed By: #### 2 4321-2, ####[facility]ATORYCLIA [id number] [address] STATES OF [facility] CBC panel Auto (Bld)on 06-21 Erythrocyte distribution width (RBC) [Ratio] 16.1 % High 11.5-15.0 [facility] Comment on above: Order Comment: Speci men Type: BLOOD SPECIMENOrdering Facility: [facility] Address: [address] [place] [address] Performed By: #### 5 8410-2 ####[facility]ATORYCLIA [id number] [address] [place] Hematocrit (Bld) [Volume fraction] 29.7 % Low 39.0-51.0 [facility] Comment on above: Order Comment: Speci men Type: BLOOD SPECIMENOrdering Facility: [facility] Address: [address] [place] [address] Performed By: #### 5 8410-2 ####[facility]ATORYCLIA [id number] [address] [place] Hemoglobin (Bld) [Mass/Vol] 9.2 g/dL Low 13.0-17.0 [facility] Comment on above: Order Comment: Speci men Type: BLOOD SPECIMENOrdering Facility: [facility] Address: [address] [place] [address] Performed By: #### 5 8410-2 ####[facility]ATORYCLIA [id number] [address] [place] MCH (RBC) [Entitic mass] 28.8 pg Normal 26.0-34.0 [facility] Comment on above: Order Comment: Speci men Type: BLOOD SPECIMENOrdering Facility: [facility] Address: [address] [place] [address] Performed By: #### 5 8410-2 ####[facility]ATORYCLIA [id number] [address] MCHC (RBC) [Mass/Vol] 31.0 g/dL Normal 30.5-36.0 [facility] Comment on above: Order Comment: Speci men Type: BLOOD SPECIMENOrdering Facility: [facility] Address: [address] [place] [address] Performed By: #### 5 8410-2 ####[facility]ATORYCLIA [id number] [address] MCV (RBC) [Entitic vol] 93.1 fL Normal 80.0-100.0 [facility] Comment on above: Order Comment: Speci men Type: BLOOD SPECIMENOrdering Facility: [facility] Address: [address] [place] [address] Performed By: #### 5 8410-2 ####[facility]ATORYCLIA [id number] [address] Nucleated RBC (Bld) [#/Vol] 10*3/uL Normal <0.01 [facility] Comment on above: Order Comment: Speci men Type: BLOOD SPECIMENOrdering Facility: [facility] Address: [address] [place] [address] Performed By: #### 5 8410-2 ####[facility]ATORYCLIA [id number] [address] Platelet mean volume (Bld) [Entitic vol] 11.6 fL Normal 9.0-12.7 [facility] Comment on above: Order Comment: Speci men Type: BLOOD SPECIMENOrdering Facility: [facility] Address: [address] [place], [place] [address] Performed By: #### 5 8410-2 ####[facility]ATORYCLIA [id number] [address] OF [facility] Platelets (Bld) [#/Vol] 347 10*3/uL Normal 150-400 [facility] Comment on above: Order Comment: Speci men Type: BLOOD SPECIMENOrdering Facility: [facility] Address: [address] [place] [address] Performed By: #### 5 8410-2 ####[facility]ATORYCLIA [id number] [place] [address] [place] RBC (Bld) [#/Vol] 3.19 10*6/uL Low 4.20-6.00 [facility] Comment on above: Order Comment: Speci men Type: BLOOD SPECIMENOrdering Facility: [facility] Address: [address] [place] [address] Performed By: #### 5 8410-2 ####[facility]ATORYCLIA [id number] [address] [place] [facility] WBC (Bld) [#/Vol] 10.29 10*3/uL Normal 3.70-11.00 [facility] Comment on above: Order Comment: Speci men Type: BLOOD SPECIMENOrdering Facility: [facility] Address: [address] [place] [address] Performed By: #### 5 8410-2 ####[facility]ATORYCLIA [id number] [address] CONSULT PROGon 06-21-2021 CONSULT PROG Normal [facility] CONSULT PROG Normal [facility] Magnesium SerPl-mCncon 06-21 Magnesium [Mass/Vol] 2.5 mg/dL High 1.7-2.3 [facility] Comment on above: Order Comment: Speci men Type: BLOOD SPECIMENOrdering Facility: [facility] Address: [address] [place] [address] Performed By: #### 2 4321-2, ####[facility]ATORYCLIA [id number] [place] [address] [place] NUTRITIONon 06-21-2021 NUTRITION Normal [facility] XR CHEST 1V FRONTALon 2021 XR CHEST 1V FRONTAL Normal [facility] aPTT PPPon 06-21-2021 aPTT Coag (PPP) [Time] 68.5 s High 23.0-32.4 [facility] Comment on above: Order Comment: Speci men Type: BLOOD SPECIMENOrdering Facility: [facility] Address: [address] [place] [address] Performed By: #### 1 4979-9 ####[facility]ATORYCLIA [id number] [address] STATES [facility] aPTT Coag (PPP) [Time] 57.8 s High 23.0-32.4 [facility] Comment on above: Order Comment: Speci men Type: BLOOD SPECIMENOrdering Facility: [facility] Address: [address] [place] [address] Performed By: #### 1 4979-9 ####[facility]ATORYCLIA [id number] [place] [address] [place] Basic metabolic 2000 panelon 06-20-2021 Anion gap [Moles/Vol] 9 mmol/L Normal 9-18 [facility] Comment on above: Order Comment: Speci men Type: BLOOD SPECIMENOrdering Facility: [facility] Address: [address] [place] [address] Performed By: #### 2 4321-2, ####[facility]ATORYCLIA [id number] [address] [place] [facility] Calcium [Mass/Vol] 8.3 mg/dL Low 8.5-10.2 [facility] Comment on above: Order Comment: Speci men Type: BLOOD SPECIMENOrdering Facility: [facility] Address: [address] [place] [address] Performed By: #### 2 4321-2, ####[facility]ORATORYCLIA [id number] [place] [address] [place] Chloride [Moles/Vol] 111 mmol/L High 97-105 [facility] Comment on above: Order Comment: Speci men Type: BLOOD SPECIMENOrdering Facility: [facility] Address: [address] [place] [address] Performed By: #### 2 43205-08, ####[facility]ATORYCLIA [id number] [place] [address] [place] CO2 [Moles/Vol] 24 mmol/L Normal 22-30 [facility] Comment on above: Order Comment: Speci men Type: BLOOD SPECIMENOrdering Facility: [facility] Address: [address] [place] [address] Performed By: #### 2 4320-06, ####[facility]CLIA [id number] [address] [place] Creatinine [Mass/Vol] 0.64 mg/dL Low 0.73-1.22 [facility] Comment on above: Order Comment: Speci men Type: BLOOD SPECIMENOrdering Facility: [facility] Address: [address] [place] [address] Performed By: #### 2 4320-06, ####[facility]ATORYCLIA [id number] [place] [address] [place] GFR/1.73 sq M.predicted MDRD (S/P/Bld) [Vol rate/Area] mL/min/{1.73_m2} Normal [facility] Comment on above: Order Comment: Speci men Type: BLOOD SPECIMENOrdering Facility: [facility] Address: [address] [place] [address] Result Comment: >60e GFR (Estimated GFR) Units [...] actual GFR. Performed By: #### 2 43205-08, ####[facility]ATORYCLIA [id number] [place] [address] [place] Glucose [Mass/Vol] 114 mg/dL High 74-99 [facility] Comment on above: Order Comment: Shira feldman Type: BLOOD SPECIMENOrdering Facility: [facility] Address: [address] [phone] Result Comment: The [place] [employer] (ADA) provides guidance for cutoff [...] Standards of Medical Care in Diabetes 2016, [place] [employer]. Diabetes Care. 2016.39(Suppl 1). Performed By: #### 2 4320-06, ####[facility]ORATORYCLIA [id number] [place] [id number] [place] Potassium [Moles/Vol] 4.1 mmol/L Normal 3.7-5.1 [facility] Comment on above: Order Comment: Shira feldman Type: BLOOD SPECIMENOrdering Facility: [facility] Address: [address] [place] [address] Performed By: #### 2 4320-06, ####[facility]ORATORYCLIA [id number] [place] [address] [place] Sodium [Moles/Vol] 144 mmol/L Normal 136-144 [facility] Comment on above: Order Comment: Speci men Type: BLOOD SPECIMENOrdering Facility: [facility] Address: [address] [place] [address] Performed By: #### 2 4321-2, 40490-0 ####[facility]ATORYCLIA [id number] [address] [place] [facility] Urea nitrogen [Mass/Vol] 27 mg/dL High 9-24 [facility] Comment on above: Order Comment: Speci men Type: BLOOD SPECIMENOrdering Facility: [facility] Address: [address] [place] [address] Performed By: #### 2 4321-2, ####[facility]ATORYCLIA [id number] [address] OF [facility] CASE MANAGEMon 06-20-2021 CASE MANAGEM Normal [facility] CBC panel Auto (Bld)on 06-20 Erythrocyte distribution width (RBC) [Ratio] 15.9 % High 11.5-15.0 [facility] Comment on above: Order Comment: Speci men Type: BLOOD SPECIMENOrdering Facility: [facility] Address: [address] [place] [address] Performed By: #### 5 8410-2 ####[facility]ATORYCLIA [id number] [address] [place] [facility] Hematocrit (Bld) [Volume fraction] 31.0 % Low 39.0-51.0 [facility] Comment on above: Order Comment: Speci men Type: BLOOD SPECIMENOrdering Facility: [facility] Address: [address] [place] [address] Performed By: #### 5 8410-2 ####[facility]ATORYCLIA [id number] [address] [place] Hemoglobin (Bld) [Mass/Vol] 9.2 g/dL Low 13.0-17.0 [facility] Comment on above: Order Comment: Speci men Type: BLOOD SPECIMENOrdering Facility: [facility] Address: [address] [place] [address] Performed By: #### 5 8410-2 ####[facility]ATORYCLIA [id number] [address] MCH (RBC) [Entitic mass] 27.4 pg Normal 26.0-34.0 [facility] Comment on above: Order Comment: Speci men Type: BLOOD SPECIMENOrdering Facility: [facility] Address: [address] [place] [address] Performed By: #### 5 8410-2 ####[facility]ATORYCLIA [id number] [address] MCHC (RBC) [Mass/Vol] 29.7 g/dL Low 30.5-36.0 [facility] Comment on above: Order Comment: Speci men Type: BLOOD SPECIMENOrdering Facility: [facility] Address: [address] [place] [address] Performed By: #### 5 8410-2 ####[facility]ATORYCLIA [id number] [address] [place] [facility] MCV (RBC) [Entitic vol] 92.3 fL Normal 80.0-100.0 [facility] Comment on above: Order Comment: Speci men Type: BLOOD SPECIMENOrdering Facility: [facility] Address: [address] [place] [address] Performed By: #### 5 8410-2 ####[facility]ATORYCLIA [id number] [address] Nucleated RBC (Bld) [#/Vol] 10*3/uL Normal <0.01 [facility] Comment on above: Order Comment: Speci men Type: BLOOD SPECIMENOrdering Facility: [facility] Address: [address] [place] [address] Performed By: #### 5 8410-2 ####[facility]ORATORYCLIA [id number] [place] [address] [place] Platelet mean volume (Bld) [Entitic vol] 11.5 fL Normal 9.0-12.7 [facility] Comment on above: Order Comment: Speci men Type: BLOOD SPECIMENOrdering Facility: [facility] Address: [address] [place] [address] Performed By: #### 5 8410-2 ####[facility]ATORYCLIA [id number] [address] [place] [facility] Platelets (Bld) [#/Vol] 343 10*3/uL Normal 150-400 [facility] Comment on above: Order Comment: Speci men Type: BLOOD SPECIMENOrdering Facility: [facility] Address: [address] [place] [address] Performed By: #### 5 8410-2 ####[facility]ORATORYCLIA [id number] [address] [place] [facility] RBC (Bld) [#/Vol] 3.36 10*6/uL Low 4.20-6.00 [facility] Comment on above: Order Comment: Speci men Type: BLOOD SPECIMENOrdering Facility: [facility] Address: [address] [place] [address] Performed By: #### 5 8410-2 ####[facility]ORATORYCLIA [id number] [address] OF [facility] WBC (Bld) [#/Vol] 10.71 10*3/uL Normal 3.70-11.00 [facility] Comment on above: Order Comment: Speci men Type: BLOOD SPECIMENOrdering Facility: [facility] Address: [address] [place] [address] Performed By: #### 5 8410-2 ####[facility]ATORYCLIA [id number] [address] [facility] CONSULT PROGon 06-20-2021 CONSULT PROG Normal [facility] HEMOGLOBIN (HGB)on Hemoglobin (Bld) [Mass/Vol] 9.7 g/dL Low 13.0-17.0 [facility] Comment on above: Order Comment: Speci men Type: BLOOD SPECIMENOrdering Facility: [facility] Address: [address] [place] [address] Performed By: #### H GB ####[facility]ATORYCLIA [id number] [address] [place] Magnesium SerPl-mCncon 06-20 Magnesium [Mass/Vol] 2.5 mg/dL High 1.7-2.3 [facility] Comment on above: Order Comment: Speci men Type: BLOOD SPECIMENOrdering Facility: [facility] Address: [address] [place] [address] Performed By: #### 2 4321-2, 81093-8 ####[facility]ATORYCLIA [id number] [address] [place] NURSING PROGon 06-20-2021 NURSING PROG Normal [facility] THERAPY NTon 06-20-2021 THERAPY NT Normal [facility] aPTT PPPon 06-20-2021 aPTT Coag (PPP) [Time] 93.5 s High 23.0-32.4 [facility] Comment on above: Order Comment: Speci men Type: BLOOD SPECIMENOrdering Facility: [facility] Address: [address] [place] [address] Performed By: #### 1 4979-9 ####[facility]ATORYCLIA [id number] [address] [place] aPTT Coag (PPP) [Time] 47.1 s High 23.0-32.4 [facility] Comment on above: Order Comment: Speci men Type: BLOOD SPECIMENOrdering Facility: [facility] Address: [address] [place] [address] Performed By: #### 1 4979-9 ####[facility]ATORYCLIA [id number] [place] [address] [place] Basic metabolic 2000 panelon 06-19-2021 Anion gap [Moles/Vol] 7 mmol/L Low 9-18 [facility] Comment on above: Order Comment: Speci men Type: BLOOD SPECIMENOrdering Facility: [facility] Address: [address] [place] [address] Performed By: #### 2 4321-2 ####[facility]ATORYCLIA [id number] [place] [address] [place] Calcium [Mass/Vol] 8.1 mg/dL Low 8.5-10.2 [facility] Comment on above: Order Comment: Speci men Type: BLOOD SPECIMENOrdering Facility: [facility] Address: [address] [place] [address] Performed By: #### 2 4321-2 ####[facility]ATORYCLIA [id number] [address] [place] Chloride [Moles/Vol] 111 mmol/L High 97-105 [facility] Comment on above: Order Comment: Speci men Type: BLOOD SPECIMENOrdering Facility: [facility] Address: [address] [place] [address] Performed By: #### 2 4321-2 ####[facility]ATORYCLIA [id number] [address] CO2 [Moles/Vol] 24 mmol/L Normal 22-30 [facility] Comment on above: Order Comment: Speci men Type: BLOOD SPECIMENOrdering Facility: [facility] Address: [address] [place] [address] Performed By: #### 2 4321-2 ####[facility]ATORYCLIA [id number] [address] [place] Creatinine [Mass/Vol] 0.71 mg/dL Low 0.73-1.22 [facility] Comment on above: Order Comment: Speci men Type: BLOOD SPECIMENOrdering Facility: [facility] Address: [address] [place] [address] Performed By: #### 2 4321-2 ####[facility]ATORYCLIA [id number] [address] [place] GFR/1.73 sq M.predicted MDRD (S/P/Bld) [Vol rate/Area] mL/min/{1.73_m2} Normal [facility] Comment on above: Order Comment: Shira feldman Type: BLOOD SPECIMENOrdering Facility: [facility] Address: [address] [place], [place] [address] Result Comment: >60e GFR (Estimated GFR) Units [...] #### 2 4321-2 ####[facility]CLIA [id number] [address] Glucose [Mass/Vol] 110 mg/dL High 74-99 [facility] Comment on above: Order Comment: Shira feldman Type: BLOOD SPECIMENOrdering Facility: [facility] Address: [address] [place], [place] [phone] Result Comment: The [place] [employer] (ADA) provides guidance for cutoff [...] Standards of Medical Care in Diabetes 2016, [place] [employer]. Diabetes Care. 2016.39(Suppl 1). Performed By: #### 2 4321-2 ####[facility]ATORYCLIA [id number] [place] [id number] [place] Potassium [Moles/Vol] 3.7 mmol/L Normal 3.7-5.1 [facility] Comment on above: Order Comment: Speci men Type: BLOOD SPECIMENOrdering Facility: [facility] Address: [address] [place] [address] Performed By: #### 2 4321-2 ####[facility]ATORYCLIA [id number] [address] [place] Sodium [Moles/Vol] 142 mmol/L Normal 136-144 [facility] Comment on above: Order Comment: Speci men Type: BLOOD SPECIMENOrdering Facility: [facility] Address: [address] [place] [address] Performed By: #### 2 4321-2 ####[facility]ATORYCLIA [id number] [address] [place] Urea nitrogen [Mass/Vol] 26 mg/dL High 9-24 [facility] Comment on above: Order Comment: Speci men Type: BLOOD SPECIMENOrdering Facility: [facility] Address: [address] [place] [address] Performed By: #### 2 4321-2 ####[facility]ATORYCLIA [id number] [address] [place] CBC panel Auto (Bld)on 06-19 Erythrocyte distribution width (RBC) [Ratio] 15.7 % High 11.5-15.0 [facility] Comment on above: Order Comment: Speci men Type: BLOOD SPECIMENOrdering Facility: [facility] Address: [address] [place] [address] Performed By: #### 5 8410-2 ####[facility]ATORYCLIA [id number] [address] Hematocrit (Bld) [Volume fraction] 30.9 % Low 39.0-51.0 [facility] Comment on above: Order Comment: Speci men Type: BLOOD SPECIMENOrdering Facility: [facility] Address: [address] [place] [address] Performed By: #### 5 8410-2 ####[facility]ATORYCLIA [id number] [address] Hemoglobin (Bld) [Mass/Vol] 9.5 g/dL Low 13.0-17.0 [facility] Comment on above: Order Comment: Speci men Type: BLOOD SPECIMENOrdering Facility: [facility] Address: [address] [place] [address] Performed By: #### 5 8410-2 ####[facility]ATORYCLIA [id number] [address] MCH (RBC) [Entitic mass] 28.4 pg Normal 26.0-34.0 [facility] Comment on above: Order Comment: Speci men Type: BLOOD SPECIMENOrdering Facility: [facility] Address: [address] [place] [address] Performed By: #### 5 8410-2 ####[facility]ATORYCLIA [id number] [address] MCHC (RBC) [Mass/Vol] 30.7 g/dL Normal 30.5-36.0 [facility] Comment on above: Order Comment: Speci men Type: BLOOD SPECIMENOrdering Facility: [facility] Address: [address] [place] [address] Performed By: #### 5 8410-2 ####[facility]ATORYCLIA [id number] [address] MCV (RBC) [Entitic vol] 92.2 fL Normal 80.0-100.0 [facility] Comment on above: Order Comment: Speci men Type: BLOOD SPECIMENOrdering Facility: [facility] Address: [address] [place] [address] Performed By: #### 5 8410-2 ####[facility]ATORYCLIA [id number] [address] Nucleated RBC (Bld) [#/Vol] 10*3/uL Normal <0.01 [facility] Comment on above: Order Comment: Speci men Type: BLOOD SPECIMENOrdering Facility: [facility] Address: [address] [place] [address] Performed By: #### 5 8410-2 ####[facility]ATORYCLIA [id number] [address] [place] Platelet mean volume (Bld) [Entitic vol] 11.7 fL Normal 9.0-12.7 [facility] Comment on above: Order Comment: Speci men Type: BLOOD SPECIMENOrdering Facility: [facility] Address: [address] [place] [address] Performed By: #### 5 8410-2 ####[facility]ATORYCLIA [id number] [address] [place] Platelets (Bld) [#/Vol] 323 10*3/uL Normal 150-400 [facility] Comment on above: Order Comment: Speci men Type: BLOOD SPECIMENOrdering Facility: [facility] Address: [address] [place] [address] Performed By: #### 5 8410-2 ####[facility]ATORYCLIA [id number] [address] [place] RBC (Bld) [#/Vol] 3.35 10*6/uL Low 4.20-6.00 [facility] Comment on above: Order Comment: Speci men Type: BLOOD SPECIMENOrdering Facility: [facility] Address: [address] [place], [place] [address] Performed By: #### 5 8410-2 ####[facility]ATORYCLIA [id number] [address] [place] WBC (Bld) [#/Vol] 9.53 10*3/uL Normal 3.70-11.00 [facility] Comment on above: Order Comment: Speci men Type: BLOOD SPECIMENOrdering Facility: [facility] Address: [address] [place] [address] Performed By: #### 5 8410-2 ####[facility]ATORYCLIA [id number] [address] [place] HEMOGLOBIN (HGB)on Hemoglobin (Bld) [Mass/Vol] 9.7 g/dL Low 13.0-17.0 [facility] Comment on above: Order Comment: Speci men Type: BLOOD SPECIMENOrdering Facility: [facility] Address: [address] [place] [address] Performed By: #### H GB ####[facility]ORATORYCLIA [id number] [address] [facility] Magnesium SerPl-mCncon 06-19 Magnesium [Mass/Vol] 2.5 mg/dL High 1.7-2.3 [facility] Comment on above: Order Comment: Speci men Type: BLOOD SPECIMENOrdering Facility: [facility] Address: [address] [place] [address] Performed By: #### 1 9123-9, 2777-1 ####[facility]NACLIA [id number] [address] STATES OF [facility] NURSING PROGon 06-19-2021 NURSING PROG Normal [facility] Phosphate SerPl-mCncon 06-19 Phosphate [Mass/Vol] 2.6 mg/dL Low 2.7-4.8 [facility] Comment on above: Order Comment: Speci men Type: BLOOD SPECIMENOrdering Facility: [facility] Address: [address] [place] [address] Performed By: #### 1 9123-9, 2777-1 ####[facility]ATORYCLIA [id number] [address] [place] aPTT PPPon 06-19-2021 aPTT Coag (PPP) [Time] 61.9 s High 23.0-32.4 [facility] Comment on above: Order Comment: Speci men Type: BLOOD SPECIMENOrdering Facility: [facility] Address: [address] [place], [place] [phone] Performed By: #### 1 4979-9 ####[facility]ATORYCLIA [id number] [address] aPTT Coag (PPP) [Time] 68.6 s High 23.0-32.4 [facility] Comment on above: Order Comment: Speci men Type: BLOOD SPECIMENOrdering Facility: [facility] Address: [address] [place] [address] Performed By: #### 1 4979-9 ####[facility]ATORYCLIA [id number] [address] [place] aPTT Coag (PPP) [Time] 83.2 s High 23.0-32.4 [facility] Comment on above: Order Comment: Speci men Type: BLOOD SPECIMENOrdering Facility: [facility] Address: [address] [place] [address] Performed By: #### 1 4979-9 ####[facility]ATORYCLIA [id number] [place] [address] [place] Basic metabolic 2000 panelon 06-18-2021 Anion gap [Moles/Vol] 7 mmol/L Low 9-18 [facility] Comment on above: Order Comment: Speci men Type: BLOOD SPECIMENOrdering Facility: [facility] Address: [address] [place] [address] Performed By: #### 2 4321-2, , 2776-05 ####[facility]ATORYCLIA [id number] [address] STATES [facility] Calcium [Mass/Vol] 8.2 mg/dL Low 8.5-10.2 [facility] Comment on above: Order Comment: Speci men Type: BLOOD SPECIMENOrdering Facility: [facility] Address: [address] [place] [address] Performed By: #### 2 4321-2, , 27711-04 ####[facility]ATORYCLIA [id number] [place] [address] [place] Chloride [Moles/Vol] 115 mmol/L High 97-105 [facility] Comment on above: Order Comment: Speci men Type: BLOOD SPECIMENOrdering Facility: [facility] Address: [address] [place] [address] Performed By: #### 2 4321-2, 58653-6, 2776-05 ####[facility]ATORYCLIA [id number] [address] [place] CO2 [Moles/Vol] 23 mmol/L Normal 22-30 [facility] Comment on above: Order Comment: Speci men Type: BLOOD SPECIMENOrdering Facility: [facility] Address: [address] [place] [address] Performed By: #### 2 4321-2, , 2776-05 ####[facility]ATORYCLIA [id number] [address] [place] Creatinine [Mass/Vol] 0.70 mg/dL Low 0.73-1.22 [facility] Comment on above: Order Comment: Speci men Type: BLOOD SPECIMENOrdering Facility: [facility] Address: [address] [place] [address] Performed By: #### 2 4321-2, , 2776-05 ####[facility]ATORYCLIA [id number] [address] [place] GFR/1.73 sq M.predicted MDRD (S/P/Bld) [Vol rate/Area] mL/min/{1.73_m2} Normal [facility] Comment on above: Order Comment: Speci men Type: BLOOD SPECIMENOrdering Facility: [facility] Address: [address] [place] [address] Result Comment: >60e GFR (Estimated GFR) Units [...] Performed By: #### 2 4321-2, , 2776-05 ####[facility]ORATORYCLIA [id number] [place] [address] [place] Glucose [Mass/Vol] 105 mg/dL High 74-99 [facility] Comment on above: Order Comment: Shira feldman Type: BLOOD SPECIMENOrdering Facility: [facility] Address: [address] [place] [address] Result Comment: The [place] [employer] (ADA) provides guidance for cutoff [...] Standards of Medical Care in Diabetes 2016, [place] [employer]. Diabetes Care. 2016.39(Suppl 1). Performed By: #### 2 4321-2, , 2776-05 ####[facility]ATORYCLIA [id number] [place] [address] [place] Potassium [Moles/Vol] 4.1 mmol/L Normal 3.7-5.1 [facility] Comment on above: Order Comment: Shira feldman Type: BLOOD SPECIMENOrdering Facility: [facility] Address: [address] [place] [address] Performed By: #### 2 4321-2, , 2776-05 ####[facility]ATORYCLIA [id number] [place] [address] [place] Sodium [Moles/Vol] 145 mmol/L High 136-144 [facility] Comment on above: Order Comment: Speci men Type: BLOOD SPECIMENOrdering Facility: [facility] Address: [address] [place] [address] Performed By: #### 2 4321-2, 53076-5, 2776-05 ####[facility]ATORYCLIA [id number] [address] STATES [facility] Urea nitrogen [Mass/Vol] 27 mg/dL High 9-24 [facility] Comment on above: Order Comment: Speci men Type: BLOOD SPECIMENOrdering Facility: [facility] Address: [address] [place] [address] Performed By: #### 2 4321-2, , 2776-05 ####[facility]ATORYCLIA [id number] [address] STATES OF [facility] CALCIUM IONIZED Bon 06-18-19 Calcium.ionized (BldV) [Mass/Vol] 1.22 mmol/L Normal 1.08-1.30 [facility] Comment on above: Order Comment: Speci men Type: BLOOD SPECIMENOrdering Facility: [facility] Address: [address] [place] [address] Performed By: #### I CA ####[facility]CLIA [id number] [address] [place] [facility] Calcium.ionized adjusted to pH 7.4 (Bld) [Moles/Vol] 1.23 mmol/L Normal 1.08-1.30 [facility] Comment on above: Order Comment: Speci men Type: BLOOD SPECIMENOrdering Facility: [facility] Address: [address] [place] [address] Performed By: #### I CA ####[facility]ATORYCLIA [id number] [address] CBC panel Auto (Bld)on 06-18 Erythrocyte distribution width (RBC) [Ratio] 15.8 % High 11.5-15.0 [facility] Comment on above: Order Comment: Speci men Type: BLOOD SPECIMENOrdering Facility: [facility] Address: [address] [place] [address] Performed By: #### 5 8410-2 ####[facility]ATORYCLIA [id number] [address] Hematocrit (Bld) [Volume fraction] 29.5 % Low 39.0-51.0 [facility] Comment on above: Order Comment: Speci men Type: BLOOD SPECIMENOrdering Facility: [facility] Address: [address] [place] [address] Performed By: #### 5 8410-2 ####[facility]ATORYCLIA [id number] [address] [facility] Hemoglobin (Bld) [Mass/Vol] 8.8 g/dL Low 13.0-17.0 [facility] Comment on above: Order Comment: Speci men Type: BLOOD SPECIMENOrdering Facility: [facility] Address: [address] [place] [address] Performed By: #### 5 8410-2 ####[facility]ATORYCLIA [id number] [address] [facility] MCH (RBC) [Entitic mass] 27.4 pg Normal 26.0-34.0 [facility] Comment on above: Order Comment: Speci men Type: BLOOD SPECIMENOrdering Facility: [facility] Address: [address] [place] [address] Performed By: #### 5 8410-2 ####[facility]ATORYCLIA [id number] [address] [place] MCHC (RBC) [Mass/Vol] 29.8 g/dL Low 30.5-36.0 [facility] Comment on above: Order Comment: Speci men Type: BLOOD SPECIMENOrdering Facility: [facility] Address: [address] [place] [address] Performed By: #### 5 8410-2 ####[facility]ATORYCLIA [id number] [address] MCV (RBC) [Entitic vol] 91.9 fL Normal 80.0-100.0 [facility] Comment on above: Order Comment: Speci men Type: BLOOD SPECIMENOrdering Facility: [facility] Address: [address] [place] [address] Performed By: #### 5 8410-2 ####[facility]ATORYCLIA [id number] [address] Nucleated RBC (Bld) [#/Vol] 10*3/uL Normal <0.01 [facility] Comment on above: Order Comment: Speci men Type: BLOOD SPECIMENOrdering Facility: [facility] Address: [address] [place] [address] Performed By: #### 5 8410-2 ####[facility]ATORYCLIA [id number] [address] Platelet mean volume (Bld) [Entitic vol] 11.9 fL Normal 9.0-12.7 [facility] Comment on above: Order Comment: Speci men Type: BLOOD SPECIMENOrdering Facility: [facility] Address: [address] [place] [address] Performed By: #### 5 8410-2 ####[facility]ATORYCLIA [id number] [address] Platelets (Bld) [#/Vol] 291 10*3/uL Normal 150-400 [facility] Comment on above: Order Comment: Speci men Type: BLOOD SPECIMENOrdering Facility: [facility] Address: [address] [place] [address] Performed By: #### 5 8410-2 ####[facility]ATORYCLIA [id number] [address] RBC (Bld) [#/Vol] 3.21 10*6/uL Low 4.20-6.00 [facility] Comment on above: Order Comment: Speci men Type: BLOOD SPECIMENOrdering Facility: [facility] Address: [address] [place] [address] Performed By: #### 5 8410-2 ####[facility]ATORYCLIA [id number] [address] STATES OF [facility] WBC (Bld) [#/Vol] 10.19 10*3/uL Normal 3.70-11.00 [facility] Comment on above: Order Comment: Speci men Type: BLOOD SPECIMENOrdering Facility: [facility] Address: [address] [place] [address] Performed By: #### 5 8410-2 ####[facility]ATORYCLIA [id number] [address] FERRITIN BLDon 06-18-2021 Ferritin [Mass/Vol] 600.9 ng/mL High 30.3-565.7 [facility] Comment on above: Order Comment: Speci men Type: BLOOD SPECIMENOrdering Facility: [facility] Address: [address] [place] [address] Performed By: #### S ERFOL, IRON, FERR ####[facility]ATORYCLIA [id number] [address] FOLATE SERUMon 06-18-2021 Folate [Mass/Vol] 14.3 ng/mL Normal >4.7 [facility] Comment on above: Order Comment: Speci men Type: BLOOD SPECIMENOrdering Facility: [facility] Address: [address] [place] [address] Performed By: #### S ERFOL, IRON, FERR ####[facility]ATORYCLIA [id number] [address] Gas and Carbon monoxide pane l (BldV)on 06-18-2021 Base excess Calc (BldV) [Moles/Vol] 0.5 mmol/L Normal 0-2 [facility] Comment on above: Order Comment: Speci men Type: VENOUS BLOOD SPECIMENOrdering Facility: [facility] Address: [address] [place] [address] Performed By: #### 2 4344-4 ####[facility]ATORYCLIA [id number] [address] Body temperature 97.34 [degF] Normal [facility] Comment on above: Order Comment: Speci men Type: VENOUS BLOOD SPECIMENOrdering Facility: [facility] Address: [address] [place] [address] Performed By: #### 2 4344-4 ####[facility]ATORYCLIA [id number] [address] OF [facility] CALCIUM IONIZED, PH CORRECTED 1.26 mmol/L Normal 1.08-1.30 [facility] Comment on above: Order Comment: Speci men Type: VENOUS BLOOD SPECIMENOrdering Facility: [facility] Address: [address] [place] [address] Performed By: #### 2 4344-4 ####[facility]ATORYCLIA [id number] [address] Calcium.ionized (BldV) [Mass/Vol] 1.25 mmol/L Normal 1.08-1.30 [facility] Comment on above: Order Comment: Speci men Type: VENOUS BLOOD SPECIMENOrdering Facility: [facility] Address: [address] [place] [address] Performed By: #### 2 4344-4 ####[facility]ATORYCLIA [id number] [address] [place] Carboxyhemoglobin (BldV) [Mass fraction] 1.5 % Normal 0.0-2.0 [facility] Comment on above: Order Comment: Speci men Type: VENOUS BLOOD SPECIMENOrdering Facility: [facility] Address: [address] [place] [address] Result Comment: Carb oxyhemoglobin Reference Range for Smokers: 2.0-8.0% Performed By: #### 2 4344-4 ####[facility]ATORYCLIA [id number] [address] CO2 (BldV) [Partial pressure] 38 mm[Hg] Low 42-55 [facility] Comment on above: Order Comment: Speci men Type: VENOUS BLOOD SPECIMENOrdering Facility: [facility] Address: [address] [place] [address] Performed By: #### 2 4344-4 ####[facility]ATORYCLIA [id number] [address] [place] CO2 [Moles/Vol] 22.9 mmol/L Low 25-29 [facility] Comment on above: Order Comment: Speci men Type: VENOUS BLOOD SPECIMENOrdering Facility: [facility] Address: [address] [place] [address] Performed By: #### 2 4344-4 ####[facility]ATORYCLIA [id number] [address] [place] CO2 adjusted to patient's actual temperature (BldV) [Partial pressure] 37 mmHg Low 42-55 [facility] Comment on above: Order Comment: Speci men Type: VENOUS BLOOD SPECIMENOrdering Facility: [facility] Address: [address] [place] [address] Performed By: #### 2 4344-4 ####[facility]ATORYCLIA [id number] [address] [place] Glucose [Mass/Vol] 103 mg/dL Normal 60-105 [facility] Comment on above: Order Comment: Speci men Type: VENOUS BLOOD SPECIMENOrdering Facility: [facility] Address: [address] [place] [address] Performed By: #### 2 4344-4 ####[facility]ORATORYCLIA [id number] [place] [address] [place] HCO3 (Bld) [Moles/Vol] 24.4 mmol/L Normal 24-28 [facility] Comment on above: Order Comment: Speci men Type: VENOUS BLOOD SPECIMENOrdering Facility: [facility] Address: [address] [place] [address] Performed By: #### 2 4344-4 ####[facility] LABORATORYCLIA [id number] [address] Hematocrit (Bld) [Volume fraction] 28.7 % Low 39.0-51.0 [facility] Comment on above: Order Comment: Speci men Type: VENOUS BLOOD SPECIMENOrdering Facility: [facility] Address: [address] [place] [address] Performed By: #### 2 4344-4 ####[facility]ORATORYCLIA [id number] [address] Hemoglobin (Bld) [Mass/Vol] 9.3 g/dL Low 13.0-17.0 [facility] Comment on above: Order Comment: Speci men Type: VENOUS BLOOD SPECIMENOrdering Facility: [facility] Address: [address] [place] [address] Performed By: #### 2 4344-4 ####[facility]ATORYCLIA [id number] [address] Methemoglobin (Bld) [Mass fraction] % Normal 0.0-1.5 [facility] Comment on above: Order Comment: Speci men Type: VENOUS BLOOD SPECIMENOrdering Facility: [facility] Address: [address] [place] [address] Performed By: #### 2 4344-4 ####[facility]ATORYCLIA [id number] [address] O2 THERAPY Ventilator Normal [facility] Comment on above: Order Comment: Speci men Type: VENOUS BLOOD SPECIMENOrdering Facility: [facility] Address: [address] [place] [address] Performed By: #### 2 4344-4 ####[facility]ORATORYCLIA [id number] [address] Oxygen (BldV) [Partial pressure] 37 mm[Hg] Normal 35-45 [facility] Comment on above: Order Comment: Speci men Type: VENOUS BLOOD SPECIMENOrdering Facility: [facility] Address: [address] [address] Performed By: #### 2 4344-4 ####[facility]ATORYCLIA [id number] [address] [place] Oxygen adjusted to patient's actual temperature (BldV) [Partial pressure] 35.1 mmHg Normal 35-45 [facility] Comment on above: Order Comment: Speci men Type: VENOUS BLOOD SPECIMENOrdering Facility: [facility] Address: [address] [address] Performed By: #### 2 4344-4 ####[facility]ATORYCLIA [id number] [address] [place] [facility] Oxygen saturation in Blood 67.1 % Normal 60-85 [facility] Comment on above: Order Comment: Speci men Type: VENOUS BLOOD SPECIMENOrdering Facility: [facility] Address: [address] [place] [address] Performed By: #### 2 4344-4 ####[facility]ATORYCLIA [id number] [address] [place] [facility] Oxyhemoglobin (BldV) [Mass fraction] 66 % Normal 60-85 [facility] Comment on above: Order Comment: Speci men Type: VENOUS BLOOD SPECIMENOrdering Facility: [facility] Address: [address] [place] [address] Performed By: #### 2 4344-4 ####[facility]ORATORYCLIA [id number] [address] [place] pH (BldV) 7.42 [pH] Normal 7.32-7.42 [facility] Comment on above: Order Comment: Speci men Type: VENOUS BLOOD SPECIMENOrdering Facility: [facility] Address: [address] [address] Performed By: #### 2 4344-4 ####[facility]ATORYCLIA [id number] [address] [place] pH adjusted to patient's actual temperature (BldV) 7.43 High 7.32-7.42 [facility] Comment on above: Order Comment: Speci men Type: VENOUS BLOOD SPECIMENOrdering Facility: [facility] Address: [address] [place] [address] Performed By: #### 2 4344-4 ####[facility]ATORYCLIA [id number] [address] [place] Potassium [Moles/Vol] 4.0 mmol/L Normal 3.5-5.0 [facility] Comment on above: Order Comment: Speci men Type: VENOUS BLOOD SPECIMENOrdering Facility: [facility] Address: [address] [place] [address] Performed By: #### 2 4344-4 ####[facility]ORATORYCLIA [id number] [address] STATES OF [facility] Sodium [Moles/Vol] 146 mmol/L High 136-144 [facility] Comment on above: Order Comment: Speci men Type: VENOUS BLOOD SPECIMENOrdering Facility: [facility] Address: [address] [place] [address] Performed By: #### 2 4344-4 ####[facility]ATORYCLIA [id number] [address] [place] HEMOGLOBIN (HGB)on Hemoglobin (Bld) [Mass/Vol] 9.2 g/dL Low 13.0-17.0 [facility] Comment on above: Order Comment: Speci men Type: BLOOD SPECIMENOrdering Facility: [facility] Address: [address] [place] [address] Performed By: #### H GB ####[facility]ORATORYCLIA [id number] [address] [place] IRON + TIBCon 06-18-2021 Iron [Mass/Vol] 27 ug/dL Low 41-186 [facility] Comment on above: Order Comment: Speci men Type: BLOOD SPECIMENOrdering Facility: [facility] Address: [address] [place] [address] Performed By: #### S ERFOL, IRON, FERR ####[facility]ORATORYCLIA [id number] [address] [place] Iron binding capacity [Mass/Vol] 141 ug/dL Low 232-386 [facility] Comment on above: Order Comment: Speci men Type: BLOOD SPECIMENOrdering Facility: [facility] Address: [address] [place] [address] Performed By: #### S ERFOL, IRON, FERR ####[facility]ORATORYCLIA [id number] [address] Iron saturation [Mass fraction] 19 % Normal 15-57 [facility] Comment on above: Order Comment: Speci men Type: BLOOD SPECIMENOrdering Facility: [facility] Address: [address] [place] [address] Performed By: #### S ERFOL, IRON, FERR ####[facility]ATORYCLIA [id number] [address] Magnesium SerPl-mCncon 06-18 Magnesium [Mass/Vol] 2.5 mg/dL High 1.7-2.3 [facility] Comment on above: Order Comment: Speci men Type: BLOOD SPECIMENOrdering Facility: [facility] Address: [address] [place] [address] Performed By: #### 2 4321-2, , 7- ####[facility]ATORYCLIA [id number] [place] [address] [place] NURSING PROGon 06-18-2021 NURSING PROG Normal [facility] Phosphate SerPl-mCncon 06-18 Phosphate [Mass/Vol] 3.0 mg/dL Normal 2.7-4.8 [facility] Comment on above: Order Comment: Speci men Type: BLOOD SPECIMENOrdering Facility: [facility] Address: [address] [place] [address] Performed By: #### 2 4321-2, 67925-0, 2777-1 ####[facility]ATORYCLIA [id number] [address] OF [facility] THERAPY NTon 06-18-2021 THERAPY NT Normal [facility] aPTT PPPon 06-18-2021 aPTT Coag (PPP) [Time] 43.0 s High 23.0-32.4 [facility] Comment on above: Order Comment: Speci men Type: BLOOD SPECIMENOrdering Facility: [facility] Address: [address] [place] [address] Performed By: #### 1 4979-9 ####[facility]ATORYCLIA [id number] [address] aPTT Coag (PPP) [Time] 60.6 s High 23.0-32.4 [facility] Comment on above: Order Comment: Speci men Type: BLOOD SPECIMENOrdering Facility: [facility] Address: [address] [place] [address] Performed By: #### 1 4979-9 ####[facility]IANACLIA [id number] [address] aPTT Coag (PPP) [Time] 46.4 s High 23.0-32.4 [facility] Comment on above: Order Comment: Speci men Type: BLOOD SPECIMENOrdering Facility: [facility] Address: [address] [place] [address] Performed By: #### 1 4979-9 ####[facility]ORATORYCLIA [id number] [address] Basic metabolic 2000 panelon 06-17-2021 Anion gap [Moles/Vol] 7 mmol/L Low 9-18 [facility] Comment on above: Order Comment: Speci men Type: BLOOD SPECIMENOrdering Facility: [facility] Address: [address] [place] [address] Performed By: #### 2 951-2, 53235-6, 2777-1, 49625-1 ####[facility]ORATORYCLIA [id number] [place] [address] [place] Calcium [Mass/Vol] 8.1 mg/dL Low 8.5-10.2 [facility] Comment on above: Order Comment: Speci men Type: BLOOD SPECIMENOrdering Facility: [facility] Address: [address] [place] [address] Performed By: #### 2 951-2, 69634-6, 2777-1, 08002-3 ####[facility]ATORYCLIA [id number] [place] [address] [place] Chloride [Moles/Vol] 113 mmol/L High 97-105 [facility] Comment on above: Order Comment: Speci men Type: BLOOD SPECIMENOrdering Facility: [facility] Address: [address] [place] [address] Performed By: #### 2 951-2, 29934-9, 2776-1, 23021-7 ####[facility]ORATORYCLIA [id number] [address] STATES OF [facility] CO2 [Moles/Vol] 25 mmol/L Normal 22-30 [facility] Comment on above: Order Comment: Speci men Type: BLOOD SPECIMENOrdering Facility: [facility] Address: [address] [place] [address] Performed By: #### 2 951-2, 53061-7, 2776-1, 15442-6 ####[facility]ORATORYCLIA [id number] [place] [address] [place] Creatinine [Mass/Vol] 0.70 mg/dL Low 0.73-1.22 [facility] Comment on above: Order Comment: Speci men Type: BLOOD SPECIMENOrdering Facility: [facility] Address: [address] [place] [address] Performed By: #### 2 951-2, 55751-4, 2776-1, 50571-0 ####[facility]ATORYCLIA [id number] [place] [address] [place] GFR/1.73 sq M.predicted MDRD (S/P/Bld) [Vol rate/Area] mL/min/{1.73_m2} Normal [facility] Comment on above: Order Comment: Shira feldman Type: BLOOD SPECIMENOrdering Facility: [facility] Address: [address] [facility] [place] [phone] Result Comment: >60e GFR (Estimated GFR) Units [...] actual GFR. Performed By: #### 2 951-2, 51765-8, 2777-1, 00179-3 ####[facility]ORATORYCLIA [id number] [address] STATES [facility] Glucose [Mass/Vol] 122 mg/dL High 74-99 [facility] Comment on above: Order Comment: Shira feldman Type: BLOOD SPECIMENOrdering Facility: [facility] Address: [address] [phone] Result Comment: The [place] [employer] (ADA) provides guidance for cutoff [...] Standards of Medical Care in Diabetes 2016, [place] [employer]. Diabetes Care. 2016.39(Suppl 1). Performed By: #### 2 951-2, 67777-8, 2777-1, 49471-4 ####[facility]ORATORYCLIA [id number] [address] STATES [facility] Potassium [Moles/Vol] 3.5 mmol/L Low 3.7-5.1 [facility] Comment on above: Order Comment: Speci men Type: BLOOD SPECIMENOrdering Facility: [facility] Address: [address] [place] [address] Performed By: #### 2 951-2, 19810-1, 2777-1, 35978-3 ####[facility]ATORYCLIA [id number] [address] STATES [facility] Urea nitrogen [Mass/Vol] 27 mg/dL High 9-24 [facility] Comment on above: Order Comment: Speci men Type: BLOOD SPECIMENOrdering Facility: [facility] Address: [address] [place] [address] Performed By: #### 2 951-2, 07919-6, 2777-1, 85485-2 ####[facility]ATORYCLIA [id number] [address] CASE MANAGEMon 06-17-2021 CASE MANAGEM Normal [facility] CBC panel Auto (Bld)on 06-17 Erythrocyte distribution width (RBC) [Ratio] 15.9 % High 11.5-15.0 [facility] Comment on above: Order Comment: Speci men Type: BLOOD SPECIMENOrdering Facility: [facility] Address: [address] [place] [address] Performed By: #### 5 8410-2 ####[facility]ORATORYCLIA [id number] [address] [place] [facility] Hematocrit (Bld) [Volume fraction] 28.9 % Low 39.0-51.0 [facility] Comment on above: Order Comment: Speci men Type: BLOOD SPECIMENOrdering Facility: [facility] Address: [address] [place] [address] Performed By: #### 5 8410-2 ####[facility]ORATORYCLIA [id number] [address] [place] Hemoglobin (Bld) [Mass/Vol] 8.8 g/dL Low 13.0-17.0 [facility] Comment on above: Order Comment: Speci men Type: BLOOD SPECIMENOrdering Facility: [facility] Address: [address] [place] [address] Performed By: #### 5 8410-2 ####[facility]ORATORYCLIA [id number] [address] MCH (RBC) [Entitic mass] 28.4 pg Normal 26.0-34.0 [facility] Comment on above: Order Comment: Speci men Type: BLOOD SPECIMENOrdering Facility: [facility] Address: [address] [place] [address] Performed By: #### 5 8410-2 ####[facility]ATORYCLIA [id number] [address] MCHC (RBC) [Mass/Vol] 30.4 g/dL Low 30.5-36.0 [facility] Comment on above: Order Comment: Speci men Type: BLOOD SPECIMENOrdering Facility: [facility] Address: [address] [place] [address] Performed By: #### 5 8410-2 ####[facility]ATORYCLIA [id number] [address] MCV (RBC) [Entitic vol] 93.2 fL Normal 80.0-100.0 [facility] Comment on above: Order Comment: Speci men Type: BLOOD SPECIMENOrdering Facility: [facility] Address: [address] [place] [address] Performed By: #### 5 8410-2 ####[facility]ATORYCLIA [id number] [address] Nucleated RBC (Bld) [#/Vol] 10*3/uL Normal <0.01 [facility] Comment on above: Order Comment: Speci men Type: BLOOD SPECIMENOrdering Facility: [facility] Address: [address] Performed By: #### 5 8410-2 ####[facility]ATORYCLIA [id number] [address] [place] Platelet mean volume (Bld) [Entitic vol] 11.9 fL Normal 9.0-12.7 [facility] Comment on above: Order Comment: Speci men Type: BLOOD SPECIMENOrdering Facility: [facility] Address: [address] [place] [address] Performed By: #### 5 8410-2 ####[facility]ATORYCLIA [id number] [address] [place] Platelets (Bld) [#/Vol] 257 10*3/uL Normal 150-400 [facility] Comment on above: Order Comment: Speci men Type: BLOOD SPECIMENOrdering Facility: [facility] Address: [address] [place] [address] Performed By: #### 5 8410-2 ####[facility]ATORYCLIA [id number] [address] [place] RBC (Bld) [#/Vol] 3.10 10*6/uL Low 4.20-6.00 [facility] Comment on above: Order Comment: Speci men Type: BLOOD SPECIMENOrdering Facility: [facility] Address: [address] [place] [address] Performed By: #### 5 8410-2 ####[facility]ATORYCLIA [id number] [address] [place] WBC (Bld) [#/Vol] 10.54 10*3/uL Normal 3.70-11.00 [facility] Comment on above: Order Comment: Speci men Type: BLOOD SPECIMENOrdering Facility: [facility] Address: [address] [place] [address] Performed By: #### 5 8410-2 ####[facility]ATORYCLIA [id number] [address] HEMOGLOBIN (HGB)on 2 Hemoglobin (Bld) [Mass/Vol] 8.8 g/dL Low 13.0-17.0 [facility] Comment on above: Order Comment: Speci men Type: BLOOD SPECIMENOrdering Facility: [facility] Address: [address] [place] [address] Performed By: #### H GB ####[facility]ORATORYCLIA [id number] [address] [place] Magnesium SerPl-mCncon 06-17 Magnesium [Mass/Vol] 2.5 mg/dL High 1.7-2.3 [facility] Comment on above: Order Comment: Speci men Type: BLOOD SPECIMENOrdering Facility: [facility] Address: [address] [place] [address] Performed By: #### 2 951-2, 07451-6, 2777-1, 49505-2 ####[facility]ATORYCLIA [id number] [address] [place] NURSING PROGon 06-17-2021 NURSING PROG Normal [facility] NURSING PROG Normal [facility] NURSING PROG Normal [facility] Phosphate SerPl-mCncon 06-17 Phosphate [Mass/Vol] 1.9 mg/dL Low 2.7-4.8 [facility] Comment on above: Order Comment: Speci men Type: BLOOD SPECIMENOrdering Facility: [facility] Address: [address] [place] [address] Performed By: #### 2 951-2, 05188-8, 2777-1, 99949-6 ####[facility]ATORYCLIA [id number] [address] [place] Sodium SerPl-sCncon 06-17-19 22 Sodium [Moles/Vol] 144 mmol/L Normal 136-144 [facility] Comment on above: Order Comment: Speci men Type: BLOOD SPECIMENOrdering Facility: [facility] Address: [address] [place] [address] Performed By: #### 2 951-2 ####[facility]ATORYCLIA [id number] [address] [place] Sodium [Moles/Vol] 145 mmol/L High 136-144 [facility] Comment on above: Order Comment: Speci men Type: BLOOD SPECIMENOrdering Facility: [facility] Address: [address] [place] [address] Performed By: #### 2 951-2, 21431-0, 2777-1, 88273-4 ####[facility]ATORYCLIA [id number] [place] [address] [place] aPTT PPPon 06-17-2021 aPTT Coag (PPP) [Time] 55.8 s High 23.0-32.4 [facility] Comment on above: Order Comment: Speci men Type: BLOOD SPECIMENOrdering Facility: [facility] Address: [address] [place] [address] Performed By: #### 1 4979-9 ####[facility]ATORYCLIA [id number] [address] [place] ARTERIAL BLOOD GASESon 06-16 Base excess Calc (Bld) [Moles/Vol] 3 mmol/L High 0-2 [facility] Comment on above: Order Comment: Speci men Type: ARTERIAL BLOOD SPECIMENOrdering Facility: [facility] Address: [address] [place] [address] Performed By: #### A LLBG ####[facility]ATORYCLIA [id number] [address] [place] Body temperature 99.14 [degF] Normal [facility] Comment on above: Order Comment: Speci men Type: ARTERIAL BLOOD SPECIMENOrdering Facility: [facility] Address: [address] [place] [address] Performed By: #### A LLBG ####[facility]ATORYCLIA [id number] [address] CALCIUM IONIZED, PH CORRECTED 1.21 mmol/L Normal 1.08-1.30 [facility] Comment on above: Order Comment: Speci men Type: ARTERIAL BLOOD SPECIMENOrdering Facility: [facility] Address: [address] [place] [address] Performed By: #### A LLBG ####[facility]ORATORYCLIA [id number] [place] [address] [place] Calcium.ionized (BldV) [Mass/Vol] 1.17 mmol/L Normal 1.08-1.30 [facility] Comment on above: Order Comment: Speci men Type: ARTERIAL BLOOD SPECIMENOrdering Facility: [facility] Address: [address] [place] [address] Performed By: #### A LLBG ####[facility]ORATORYCLIA [id number] [address] OF [facility] Carboxyhemoglobin (BldA) [Mass fraction] 1.4 % Normal 0.0-2.0 [facility] Comment on above: Order Comment: Speci men Type: ARTERIAL BLOOD SPECIMENOrdering Facility: [facility] Address: [address] [place] [address] Result Comment: Carb oxyhemoglobin Reference Range for Smokers: 2.0-8.0% Performed By: #### A LLBG ####[facility]ATORYCLIA [id number] [address] [place] CO2 (Bld) [Partial pressure] 38 mm Hg Normal 36-46 [facility] Comment on above: Order Comment: Speci men Type: ARTERIAL BLOOD SPECIMENOrdering Facility: [facility] Address: [address] [place] [address] Performed By: #### A LLBG ####[facility]ORATORYCLIA [id number] [address] [place] [facility] CO2 [Moles/Vol] 24.5 mmol/L Normal 22-28 [facility] Comment on above: Order Comment: Speci men Type: ARTERIAL BLOOD SPECIMENOrdering Facility: [facility] Address: [address] [place] [address] Performed By: #### A LLBG ####[facility]ORATORYCLIA [id number] [address] CO2 adjusted to patient's actual temperature (Bld) [Partial pressure] 38 mmHg Normal 36-46 [facility] Comment on above: Order Comment: Speci men Type: ARTERIAL BLOOD SPECIMENOrdering Facility: [facility] Address: [address] [place] [address] Performed By: #### A LLBG ####[facility]ORATORYCLIA [id number] [address] [place] Glucose [Mass/Vol] 147 mg/dL High 60-105 [facility] Comment on above: Order Comment: Speci men Type: ARTERIAL BLOOD SPECIMENOrdering Facility: [facility] Address: [address] [place] [address] Performed By: #### A LLBG ####[facility]ATORYCLIA [id number] [address] HCO3 (Bld) [Moles/Vol] 27 mmol/L High 22-26 [facility] Comment on above: Order Comment: Speci men Type: ARTERIAL BLOOD SPECIMENOrdering Facility: [facility] Address: [address] [place] [address] Performed By: #### A LLBG ####[facility]ORATORYCLIA [id number] [address] [place] Hematocrit (Bld) [Volume fraction] 31.8 % Low 39.0-51.0 [facility] Comment on above: Order Comment: Speci men Type: ARTERIAL BLOOD SPECIMENOrdering Facility: [facility] Address: [address] [place] [address] Performed By: #### A LLBG ####[facility]ORATORYCLIA [id number] [address] [place] Hemoglobin (Bld) [Mass/Vol] 10.3 g/dL Low 13.0-17.0 [facility] Comment on above: Order Comment: Speci men Type: ARTERIAL BLOOD SPECIMENOrdering Facility: [facility] Address: [address] [address] Performed By: #### A LLBG ####[facility]ATORYCLIA [id number] [address] Methemoglobin (Bld) [Mass fraction] 1.0 % Normal 0.0-1.5 [facility] Comment on above: Order Comment: Speci men Type: ARTERIAL BLOOD SPECIMENOrdering Facility: [facility] Address: [address] [place] [address] Performed By: #### A LLBG ####[facility]ATORYCLIA [id number] [address] O2 THERAPY Ventilator Normal [facility] Comment on above: Order Comment: Speci men Type: ARTERIAL BLOOD SPECIMENOrdering Facility: [facility] Address: [address] [place] [address] Performed By: #### A LLBG ####[facility]ATORYCLIA [id number] [address] Oxygen (Bld) [Partial pressure] 78 mm Hg Low 85-95 [facility] Comment on above: Order Comment: Speci men Type: ARTERIAL BLOOD SPECIMENOrdering Facility: [facility] Address: [address] [place] [address] Performed By: #### A LLBG ####[facility]ATORYCLIA [id number] [address] Oxygen adjusted to patient's actual temperature (Bld) [Partial pressure] 79.7 mmHg Low 85-95 [facility] Comment on above: Order Comment: Speci men Type: ARTERIAL BLOOD SPECIMENOrdering Facility: [facility] Address: [address] [place] [address] Performed By: #### A LLBG ####[facility]ATORYCLIA [id number] [address] OXYGEN SATURATION, ARTERIAL 96 % Normal 95-98 [facility] Comment on above: Order Comment: Speci men Type: ARTERIAL BLOOD SPECIMENOrdering Facility: [facility] Address: [address] [place] [address] Performed By: #### A LLBG ####[facility]ORATORYCLIA [id number] [address] Oxyhemoglobin (BldA) [Mass fraction] 94 % Low 95-98 [facility] Comment on above: Order Comment: Speci men Type: ARTERIAL BLOOD SPECIMENOrdering Facility: [facility] Address: [address] [place] [address] Performed By: #### A LLBG ####[facility]ORATORYCLIA [id number] [address] [place] pH (Bld) 7.47 [pH] High 7.35-7.45 [facility] Comment on above: Order Comment: Speci men Type: ARTERIAL BLOOD SPECIMENOrdering Facility: [facility] Address: [address] [place] [address] Performed By: #### A LLBG ####[facility]ORATORYCLIA [id number] [address] pH adjusted to patient's actual temperature (Bld) 7.46 High 7.35-7.45 [facility] Comment on above: Order Comment: Speci men Type: ARTERIAL BLOOD SPECIMENOrdering Facility: [facility] Address: [address] [place] [address] Performed By: #### A LLBG ####[facility]ORATORYCLIA [id number] [address] [place] Potassium [Moles/Vol] 3.7 mmol/L Normal 3.5-5.0 [facility] Comment on above: Order Comment: Speci men Type: ARTERIAL BLOOD SPECIMENOrdering Facility: [facility] Address: [address] [place] [address] Performed By: #### A LLBG ####[facility]ORATORYCLIA [id number] [place] [address] [place] Sodium [Moles/Vol] 155 mmol/L High 136-144 [facility] Comment on above: Order Comment: Speci men Type: ARTERIAL BLOOD SPECIMENOrdering Facility: [facility] Address: [address] [place] [address] Performed By: #### A LLBG ####[facility]ORATORYCLIA [id number] [address] [place] [facility] Bacteria Spec Resp Culton Bacteria identified Respiratory culture Nom (Unsp spec) CULTURE, RESPIRATORY: Rare Normal respiratory chris present ORGANISM ID: 1 Few Yeast, not cryptococcus neoformans GRAM STAIN: No organisms seen Few Polymorphonuclear leukocytes Few Epithelial cells Abnormal [facility] Comment on above: Performed By: #### 3 2355-0 ####[facility]ATORYCLIA [id number] [place] [address] [place] Basic metabolic 2000 panelon 06-16-2021 Anion gap [Moles/Vol] 9 mmol/L Normal 9-18 [facility] Comment on above: Order Comment: Speci men Type: BLOOD SPECIMENOrdering Facility: [facility] Address: [address] [place] [address] Performed By: #### 2 4321-2 ####[facility]ATORYCLIA [id number] [place] [address] [place] Calcium [Mass/Vol] 8.4 mg/dL Low 8.5-10.2 [facility] Comment on above: Order Comment: Speci men Type: BLOOD SPECIMENOrdering Facility: [facility] Address: [address] [address] Performed By: #### 2 4321-2 ####[facility]ORATORYCLIA [id number] [place] [address] [place] Chloride [Moles/Vol] 120 mmol/L High 97-105 [facility] Comment on above: Order Comment: Speci men Type: BLOOD SPECIMENOrdering Facility: [facility] Address: [facility] [address] Performed By: #### 2 4321-2 ####[facility]ORATORYCLIA [id number] [address] [place] CO2 [Moles/Vol] 27 mmol/L Normal 22-30 [facility] Comment on above: Order Comment: Speci men Type: BLOOD SPECIMENOrdering Facility: [facility] Address: [address] [place] [address] Performed By: #### 2 4321-2 ####[facility]NACL[facility] [id number] [address] [place] Creatinine [Mass/Vol] 0.75 mg/dL Normal 0.73-1.22 [facility] Comment on above: Order Comment: Speci men Type: BLOOD SPECIMENOrdering Facility: [facility] Address: [address] [place] [address] Performed By: #### 2 4321-2 ####[facility] CENTERIA [id number] [address] [place] [facility] GFR/1.73 sq M.predicted MDRD (S/P/Bld) [Vol rate/Area] mL/min/{1.73_m2} Normal [facility] Comment on above: Order Comment: Speci men Type: BLOOD SPECIMENOrdering Facility: [facility] Address: [address] [place] [address] Result Comment: >60e GFR (Estimated GFR) Units [...] actual GFR. Performed By: #### 2 4321-2 ####[facility]ATORYCLIA [id number] [address] [place] Glucose [Mass/Vol] 160 mg/dL High 74-99 [facility] Comment on above: Order Comment: Shira francia Type: BLOOD SPECIMENOrdering Facility: [facility] Address: [address] [address] Result Comment: The [place] [employer] (ADA) provides guidance for cutoff [...] Standards of Medical Care in Diabetes 2016, [place] [employer]. Diabetes Care. 2016.39(Suppl 1). Performed By: #### 2 4321-2 ####[facility]ORATORYCLIA [id number] [place] [address] [place] Potassium [Moles/Vol] 3.1 mmol/L Low 3.7-5.1 [facility] Comment on above: Order Comment: Shira francia Type: BLOOD SPECIMENOrdering Facility: [facility] Address: [address] [address] Performed By: #### 2 4321-2 ####[facility]ATORYCLIA [id number] [place] [address] [place] Sodium [Moles/Vol] 156 mmol/L High 136-144 [facility] Comment on above: Order Comment: Shira feldman Type: BLOOD SPECIMENOrdering Facility: [facility] Address: [address] [address] Performed By: #### 2 4321-2 ####[facility]ORATORYCLIA [id number] [place] [address] [place] Urea nitrogen [Mass/Vol] 33 mg/dL High 9-24 [facility] Comment on above: Order Comment: Johni men Type: BLOOD SPECIMENOrdering Facility: [facility] Address: [address] [place] [address] Performed By: #### 2 4321-2 ####[facility]ORATORYCLIA [id number] [address] [place] CASE MANAGEMon 06-16-2021 CASE MANAGEM Normal [facility] CBC panel Auto (Bld)on 06-16 Erythrocyte distribution width (RBC) [Ratio] 15.9 % High 11.5-15.0 [facility] Comment on above: Order Comment: Speci men Type: BLOOD SPECIMENOrdering Facility: [facility] Address: [address] [place] [address] Performed By: #### 5 8410-2 ####[facility]ORATORYCLIA [id number] [address] Hematocrit (Bld) [Volume fraction] 34.6 % Low 39.0-51.0 [facility] Comment on above: Order Comment: Speci men Type: BLOOD SPECIMENOrdering Facility: [facility] Address: [address] [place] [address] Performed By: #### 5 8410-2 ####[facility]ATORYCLIA [id number] [address] Hemoglobin (Bld) [Mass/Vol] 10.2 g/dL Low 13.0-17.0 [facility] Comment on above: Order Comment: Speci men Type: BLOOD SPECIMENOrdering Facility: [facility] Address: [address] [place] [address] Performed By: #### 5 8410-2 ####[facility]ORATORYCLIA [id number] [address] [place] MCH (RBC) [Entitic mass] 28.5 pg Normal 26.0-34.0 [facility] Comment on above: Order Comment: Speci men Type: BLOOD SPECIMENOrdering Facility: [facility] Address: [address] [place] [address] Performed By: #### 5 8410-2 ####[facility]ORATORYCLIA [id number] [address] MCHC (RBC) [Mass/Vol] 29.5 g/dL Low 30.5-36.0 [facility] Comment on above: Order Comment: Speci men Type: BLOOD SPECIMENOrdering Facility: [facility] Address: [address] [place] [address] Performed By: #### 5 8410-2 ####[facility]ORATORYCLIA [id number] [address] MCV (RBC) [Entitic vol] 96.6 fL Normal 80.0-100.0 [facility] Comment on above: Order Comment: Speci men Type: BLOOD SPECIMENOrdering Facility: [facility] Address: [address] [place] [address] Performed By: #### 5 8410-2 ####[facility]ORATORYCLIA [id number] [address] Nucleated RBC (Bld) [#/Vol] 10*3/uL Normal <0.01 [facility] Comment on above: Order Comment: Speci men Type: BLOOD SPECIMENOrdering Facility: [facility] Address: [address] [place] [address] Performed By: #### 5 8410-2 ####[facility]ORATORYCLIA [id number] [address] [place] Platelet mean volume (Bld) [Entitic vol] 11.9 fL Normal 9.0-12.7 [facility] Comment on above: Order Comment: Speci men Type: BLOOD SPECIMENOrdering Facility: [facility] Address: [address] [place] [address] Performed By: #### 5 8410-2 ####[facility]ORATORYCLIA [id number] [address] [place] Platelets (Bld) [#/Vol] 269 10*3/uL Normal 150-400 [facility] Comment on above: Order Comment: Speci men Type: BLOOD SPECIMENOrdering Facility: [facility] Address: [address] [place] [address] Performed By: #### 5 8410-2 ####[facility]ATORYCLIA [id number] [address] OF [facility] RBC (Bld) [#/Vol] 3.58 10*6/uL Low 4.20-6.00 [facility] Comment on above: Order Comment: Speci men Type: BLOOD SPECIMENOrdering Facility: [facility] Address: [address] [place] [address] Performed By: #### 5 8410-2 ####[facility]ATORYCLIA [id number] [address] OF [facility] WBC (Bld) [#/Vol] 13.11 10*3/uL High 3.70-11.00 [facility] Comment on above: Order Comment: Speci men Type: BLOOD SPECIMENOrdering Facility: [facility] Address: [address] [place] [address] Performed By: #### 5 8410-2 ####[facility]ORATORYCLIA [id number] [address] OF [facility] CONSULTon 06-16-2021 CONSULT Normal [facility] CONSULT PROGon 06-16-2021 CONSULT PROG Normal [facility] CT BRAIN WO IVCONon 06-16-[address] BRAIN WO IVCON Normal [facility] HEMOGLOBIN (HGB)on 2 Hemoglobin (Bld) [Mass/Vol] 8.9 g/dL Low 13.0-17.0 [facility] Comment on above: Order Comment: Speci men Type: BLOOD SPECIMENOrdering Facility: [facility] Address: [address] [place] [address] Performed By: #### H GB ####[facility]ORATORYCLIA [id number] [address] [place] Hemoglobin (Bld) [Mass/Vol] 9.6 g/dL Low 13.0-17.0 [facility] Comment on above: Order Comment: Speci men Type: BLOOD SPECIMENOrdering Facility: [facility] Address: [address] [place] [address] Performed By: #### H GB ####[facility]ORATORYCLIA [id number] [place] [address] [place] Magnesium SerPl-mCncon 06-16 Magnesium [Mass/Vol] 2.7 mg/dL High 1.7-2.3 [facility] Comment on above: Order Comment: Speci men Type: BLOOD SPECIMENOrdering Facility: [facility] Address: [address] [place] [address] Performed By: #### 1 9123-9 ####[facility]ORATORYCLIA [id number] [place] [address] [place] NURSING PROGon 06-16-2021 NURSING PROG Normal [facility] NUTRITIONon 06-16-2021 NUTRITION Normal [facility] Phosphate SerPl-mCncon 06-16 Phosphate [Mass/Vol] 1.4 mg/dL Low 2.7-4.8 [facility] Comment on above: Order Comment: Speci men Type: BLOOD SPECIMENOrdering Facility: [facility] Address: [address] [place] [address] Performed By: #### 2 777-1 ####[facility]ORATORYCLIA [id number] [address] [place] STAPH AUREUS PCRon 2 S. aureus and MRSA panel MEGAN+probe (Nose) Normal Negative [facility] Comment on above: Order Comment: Speci men Type: SWAB OF INTERNAL NOSEOrdering Facility: [facility] Address: [address] [place] [address] Result Comment: Nega tive for Staphylococcus aureus by PCR.Negative for MRSA by PCR Performed By: #### S APCR ####[facility]ORATORYCLIA [id number] [place] [address] [place] Sodium SerPl-sCncon 02-10-20 22 Sodium [Moles/Vol] 150 mmol/L High 136-144 [facility] Comment on above: Order Comment: Speci men Type: BLOOD SPECIMENOrdering Facility: [facility] Address: [address] [place] [address] Performed By: #### 2 951-2 ####[facility]ORATORYCLIA [id number] [place] [address] [place] [facility] Sodium [Moles/Vol] 153 mmol/L High 136-144 [facility] Comment on above: Order Comment: Speci men Type: BLOOD SPECIMENOrdering Facility: [facility] Address: [address] [place] [address] Performed By: #### 2 951-2 ####[facility]ATORYCLIA [id number] [address] [place] [facility] Sodium [Moles/Vol] 158 mmol/L High 136-144 [facility] Comment on above: Order Comment: Speci men Type: BLOOD SPECIMENOrdering Facility: [facility] Address: [address] [place] [address] Performed By: #### 2 951-2 ####[facility]ORATORYCLIA [id number] [place] [address] [place] aPTT PPPon 06-16-2021 aPTT Coag (PPP) [Time] 61.8 s High 23.0-32.4 [facility] Comment on above: Order Comment: Speci men Type: BLOOD SPECIMENOrdering Facility: [facility] Address: [address] [place] [address] Performed By: #### 1 4979-9 ####[facility]ATORYCLIA [id number] [address] [place] aPTT Coag (PPP) [Time] 57.6 s High 23.0-32.4 [facility] Comment on above: Order Comment: Speci men Type: BLOOD SPECIMENOrdering Facility: [facility] Address: [address] [place] [address] Performed By: #### 1 4979-9 ####[facility]ATORYCLIA [id number] [address] [place] ALLIED HEALTHon 06-15-2021 ALLIED HEALTH Normal [facility] ALLIED HEALTH Normal [facility] ALLIED HEALTH Normal [facility] ALLIED HEALTH Normal [facility] ARTERIAL BLOOD GASESon 06-15 Base excess Calc (Bld) [Moles/Vol] 3 mmol/L High 0-2 [facility] Comment on above: Order Comment: Speci men Type: ARTERIAL BLOOD SPECIMENOrdering Facility: [facility] Address: [address] [place] [address] Performed By: #### A LLBG ####[facility]ATORYCLIA [id number] [address] Body temperature 99.5 [degF] Normal [facility] Comment on above: Order Comment: Speci men Type: ARTERIAL BLOOD SPECIMENOrdering Facility: [facility] Address: [address] [place] [address] Performed By: #### A LLBG ####[facility]ORATORYCLIA [id number] [address] CALCIUM IONIZED, PH CORRECTED 1.34 mmol/L High 1.08-1.30 [facility] Comment on above: Order Comment: Speci men Type: ARTERIAL BLOOD SPECIMENOrdering Facility: [facility] Address: [address] [place] [address] Performed By: #### A LLBG ####[facility]ATORYCLIA [id number] [address] [place] Calcium.ionized (BldV) [Mass/Vol] 1.29 mmol/L Normal 1.08-1.30 [facility] Comment on above: Order Comment: Speci men Type: ARTERIAL BLOOD SPECIMENOrdering Facility: [facility] Address: [address] [place] [address] Performed By: #### A LLBG ####[facility]ORATORYCLIA [id number] [address] [place] Carboxyhemoglobin (BldA) [Mass fraction] 1.3 % Normal 0.0-2.0 [facility] Comment on above: Order Comment: Speci men Type: ARTERIAL BLOOD SPECIMENOrdering Facility: [facility] Address: [address] [place] [address] Result Comment: Carb oxyhemoglobin Reference Range for Smokers: 2.0-8.0% Performed By: #### A LLBG ####[facility]ATORYCLIA [id number] [address] CO2 (Bld) [Partial pressure] 37 mm Hg Normal 36-46 [facility] Comment on above: Order Comment: Speci men Type: ARTERIAL BLOOD SPECIMENOrdering Facility: [facility] Address: [address] [place] [address] Performed By: #### A LLBG ####[facility]ORATORYCLIA [id number] [address] [place] CO2 [Moles/Vol] 24.6 mmol/L Normal 22-28 [facility] Comment on above: Order Comment: Speci men Type: ARTERIAL BLOOD SPECIMENOrdering Facility: [facility] Address: [address] [place] [address] Performed By: #### A LLBG ####[facility]ATORYCLIA [id number] [address] CO2 adjusted to patient's actual temperature (Bld) [Partial pressure] 38 mmHg Normal 36-46 [facility] Comment on above: Order Comment: Speci men Type: ARTERIAL BLOOD SPECIMENOrdering Facility: [facility] Address: [address] [place] [address] Performed By: #### A LLBG ####[facility] LABORATORYCLIA [id number] [address] [place] FIO2 100 % Normal [facility] Comment on above: Order Comment: Speci men Type: ARTERIAL BLOOD SPECIMENOrdering Facility: [facility] Address: [address] [place] [address] Performed By: #### A LLBG ####[facility]ATORYCLIA [id number] [address] [place] Glucose [Mass/Vol] 159 mg/dL High 60-105 [facility] Comment on above: Order Comment: Speci men Type: ARTERIAL BLOOD SPECIMENOrdering Facility: [facility] Address: [address] [place] [address] Performed By: #### A LLBG ####[facility]ORATORYCLIA [id number] [address] [place] HCO3 (Bld) [Moles/Vol] 27 mmol/L High 22-26 [facility] Comment on above: Order Comment: Speci men Type: ARTERIAL BLOOD SPECIMENOrdering Facility: [facility] Address: [address] [place] [address] Performed By: #### A LLBG ####[facility]ATORYCLIA [id number] [address] [place] Hematocrit (Bld) [Volume fraction] 31.0 % Low 39.0-51.0 [facility] Comment on above: Order Comment: Speci men Type: ARTERIAL BLOOD SPECIMENOrdering Facility: [facility] Address: [address] [place] [address] Performed By: #### A LLBG ####[facility]ATORYCLIA [id number] [address] [place] Hemoglobin (Bld) [Mass/Vol] 10.0 g/dL Low 13.0-17.0 [facility] Comment on above: Order Comment: Speci men Type: ARTERIAL BLOOD SPECIMENOrdering Facility: [facility] Address: [address] [place] [address] Performed By: #### A LLBG ####[facility]ORATORYCLIA [id number] [address] [place] Methemoglobin (Bld) [Mass fraction] % Normal 0.0-1.5 [facility] Comment on above: Order Comment: Speci men Type: ARTERIAL BLOOD SPECIMENOrdering Facility: [facility] Address: [address] [address] Performed By: #### A LLBG ####[facility]ORATORYCLIA [id number] [address] [place] O2 THERAPY Ventilator Normal [facility] Comment on above: Order Comment: Speci men Type: ARTERIAL BLOOD SPECIMENOrdering Facility: [facility] Address: [address] [address] Performed By: #### A LLBG ####[facility]ATORYCLIA [id number] [address] [place] Oxygen (Bld) [Partial pressure] 279 mm Hg High 85-95 [facility] Comment on above: Order Comment: Speci men Type: ARTERIAL BLOOD SPECIMENOrdering Facility: [facility] Address: [address] [place] [address] Performed By: #### A LLBG ####[facility]ATORYCLIA [id number] [address] Oxygen adjusted to patient's actual temperature (Bld) [Partial pressure] 281 mmHg High 85-95 [facility] Comment on above: Order Comment: Speci men Type: ARTERIAL BLOOD SPECIMENOrdering Facility: [facility] Address: [address] [place] [address] Performed By: #### A LLBG ####[facility]ORATORYCLIA [id number] [address] [place] OXYGEN SATURATION, ARTERIAL 100 % High 95-98 [facility] Comment on above: Order Comment: Speci men Type: ARTERIAL BLOOD SPECIMENOrdering Facility: [facility] Address: [address] [address] Performed By: #### A LLBG ####[facility]ATORYCLIA [id number] [address] [place] Oxyhemoglobin (BldA) [Mass fraction] 98 % Normal 95-98 [facility] Comment on above: Order Comment: Speci men Type: ARTERIAL BLOOD SPECIMENOrdering Facility: [facility] Address: [address] [place] [address] Performed By: #### A LLBG ####[facility]ATORYCLIA [id number] [address] [place] pH (Bld) 7.47 [pH] High 7.35-7.45 [facility] Comment on above: Order Comment: Speci men Type: ARTERIAL BLOOD SPECIMENOrdering Facility: [facility] Address: [address] [place] [address] Performed By: #### A LLBG ####[facility]ATORYCLIA [id number] [address] pH adjusted to patient's actual temperature (Bld) 7.46 High 7.35-7.45 [facility] Comment on above: Order Comment: Speci men Type: ARTERIAL BLOOD SPECIMENOrdering Facility: [facility] Address: [address] [place] [address] Performed By: #### A LLBG ####[facility]ORATORYCLIA [id number] [place] [address] [place] Potassium [Moles/Vol] 3.6 mmol/L Normal 3.5-5.0 [facility] Comment on above: Order Comment: Speci men Type: ARTERIAL BLOOD SPECIMENOrdering Facility: [facility] Address: [address] [place] [address] Performed By: #### A LLBG ####[facility]ATORYCLIA [id number] [place] [address] [place] Sodium [Moles/Vol] 162 mmol/L High 136-144 [facility] Comment on above: Order Comment: Speci men Type: ARTERIAL BLOOD SPECIMENOrdering Facility: [facility] Address: [address] [place] [address] Performed By: #### A LLBG ####[facility]ATORYCLIA [id number] [place] [address] [place] Base excess Calc (Bld) [Moles/Vol] 4 mmol/L High 0-2 [facility] Comment on above: Order Comment: Speci men Type: ARTERIAL BLOOD SPECIMENOrdering Facility: [facility] Address: [address] [place] [address] Performed By: #### A LLBG ####[facility]ATORYCLIA [id number] [address] Body temperature 100.58 [degF] Normal [facility] Comment on above: Order Comment: Speci men Type: ARTERIAL BLOOD SPECIMENOrdering Facility: [facility] Address: [address] [place] [address] Performed By: #### A LLBG ####[facility]ORATORYCLIA [id number] [address] [place] CALCIUM IONIZED, PH CORRECTED 1.34 mmol/L High 1.08-1.30 [facility] Comment on above: Order Comment: Speci men Type: ARTERIAL BLOOD SPECIMENOrdering Facility: [facility] Address: [address] [place] [address] Performed By: #### A LLBG ####[facility]ATORYCLIA [id number] [address] [place] Calcium.ionized (BldV) [Mass/Vol] 1.33 mmol/L High 1.08-1.30 [facility] Comment on above: Order Comment: Speci men Type: ARTERIAL BLOOD SPECIMENOrdering Facility: [facility] Address: [address] [place] [address] Performed By: #### A LLBG ####[facility]ATORYCLIA [id number] [address] [place] Carboxyhemoglobin (BldA) [Mass fraction] 1.5 % Normal 0.0-2.0 [facility] Comment on above: Order Comment: Speci men Type: ARTERIAL BLOOD SPECIMENOrdering Facility: [facility] Address: [address] [place] [address] Result Comment: Carb oxyhemoglobin Reference Range for Smokers: 2.0-8.0% Performed By: #### A LLBG ####[facility]ATORYCLIA [id number] [address] CO2 (Bld) [Partial pressure] 46 mm Hg Normal 36-46 [facility] Comment on above: Order Comment: Speci men Type: ARTERIAL BLOOD SPECIMENOrdering Facility: [facility] Address: [address] [place] [address] Performed By: #### A LLBG ####[facility]ATORYCLIA [id number] [address] [place] CO2 [Moles/Vol] 26.4 mmol/L Normal 22-28 [facility] Comment on above: Order Comment: Speci men Type: ARTERIAL BLOOD SPECIMENOrdering Facility: [facility] Address: [address] [place] [address] Performed By: #### A LLBG ####[facility]ATORYCLIA [id number] [address] CO2 adjusted to patient's actual temperature (Bld) [Partial pressure] 48 mmHg High 36-46 [facility] Comment on above: Order Comment: Speci men Type: ARTERIAL BLOOD SPECIMENOrdering Facility: [facility] Address: [address] [place] [address] Performed By: #### A LLBG ####[facility]ORATORYCLIA [id number] [address] [place] FIO2 100 % Normal [facility] Comment on above: Order Comment: Speci men Type: ARTERIAL BLOOD SPECIMENOrdering Facility: [facility] Address: [address] [place] [address] Performed By: #### A LLBG ####[facility]ORATORYCLIA [id number] [address] [place] Glucose [Mass/Vol] 132 mg/dL High 60-105 [facility] Comment on above: Order Comment: Speci men Type: ARTERIAL BLOOD SPECIMENOrdering Facility: [facility] Address: [address] [place] [address] Performed By: #### A LLBG ####[facility] LABORATORYCLIA [id number] [address] [place] HCO3 (Bld) [Moles/Vol] 29 mmol/L High 22-26 [facility] Comment on above: Order Comment: Speci men Type: ARTERIAL BLOOD SPECIMENOrdering Facility: [facility] Address: [address] [place] [address] Performed By: #### A LLBG ####[facility]ORATORYCLIA [id number] [address] [place] Hematocrit (Bld) [Volume fraction] 32.3 % Low 39.0-51.0 [facility] Comment on above: Order Comment: Speci men Type: ARTERIAL BLOOD SPECIMENOrdering Facility: [facility] Address: [address] [place] [address] Performed By: #### A LLBG ####[facility]ORATORYCLIA [id number] [address] Hemoglobin (Bld) [Mass/Vol] 10.4 g/dL Low 13.0-17.0 [facility] Comment on above: Order Comment: Speci men Type: ARTERIAL BLOOD SPECIMENOrdering Facility: [facility] Address: [address] [place] [address] Performed By: #### A LLBG ####[facility]ORATORYCLIA [id number] [address] Methemoglobin (Bld) [Mass fraction] % Normal 0.0-1.5 [facility] Comment on above: Order Comment: Speci men Type: ARTERIAL BLOOD SPECIMENOrdering Facility: [facility] Address: [address] [place] [address] Performed By: #### A LLBG ####[facility]ORATORYCLIA [id number] [address] O2 THERAPY NR=Non-Rebreather Mask Normal [facility] Comment on above: Order Comment: Speci men Type: ARTERIAL BLOOD SPECIMENOrdering Facility: [facility] Address: [address] [address] Performed By: #### A LLBG ####[facility]ATORYCLIA [id number] [address] Oxygen (Bld) [Partial pressure] 130 mm Hg High 85-95 [facility] Comment on above: Order Comment: Speci men Type: ARTERIAL BLOOD SPECIMENOrdering Facility: [facility] Address: [address] [place] [address] Performed By: #### A LLBG ####[facility]ATORYCLIA [id number] [address] Oxygen adjusted to patient's actual temperature (Bld) [Partial pressure] 136 mmHg High 85-95 [facility] Comment on above: Order Comment: Speci men Type: ARTERIAL BLOOD SPECIMENOrdering Facility: [facility] Address: [address] [place] [address] Performed By: #### A LLBG ####[facility]ORATORYCLIA [id number] [address] [place] OXYGEN SATURATION, ARTERIAL 99 % High 95-98 [facility] Comment on above: Order Comment: Speci men Type: ARTERIAL BLOOD SPECIMENOrdering Facility: [facility] Address: [address] [place] [address] Performed By: #### A LLBG ####[facility]ORATORYCLIA [id number] [address] [place] Oxyhemoglobin (BldA) [Mass fraction] 97 % Normal 95-98 [facility] Comment on above: Order Comment: Speci men Type: ARTERIAL BLOOD SPECIMENOrdering Facility: [facility] Address: [address] [place] [address] Performed By: #### A LLBG ####[facility]ORATORYCLIA [id number] [address] [place] pH (Bld) 7.41 [pH] Normal 7.35-7.45 [facility] Comment on above: Order Comment: Speci men Type: ARTERIAL BLOOD SPECIMENOrdering Facility: [facility] Address: [address] [place] [address] Performed By: #### A LLBG ####[facility]ORATORYCLIA [id number] [address] STATES [facility] pH adjusted to patient's actual temperature (Bld) 7.40 Normal 7.35-7.45 [facility] Comment on above: Order Comment: Speci men Type: ARTERIAL BLOOD SPECIMENOrdering Facility: [facility] Address: [address] [place] [address] Performed By: #### A LLBG ####[facility]ORATORYCLIA [id number] [address] [place] [facility] Potassium [Moles/Vol] 3.8 mmol/L Normal 3.5-5.0 [facility] Comment on above: Order Comment: Speci men Type: ARTERIAL BLOOD SPECIMENOrdering Facility: [facility] Address: [address] [place] [address] Performed By: #### A LLBG ####[facility]ATORYCLIA [id number] [address] Sodium [Moles/Vol] 166 mmol/L High 136-144 [facility] Comment on above: Order Comment: Speci men Type: ARTERIAL BLOOD SPECIMENOrdering Facility: [facility] Address: [address] [place] [address] Performed By: #### A LLBG ####[facility]ORATORYCLIA [id number] [place] [address] [place] Bacteria Bld Culton 06-15-19 22 Bacteria identified Cx Nom (Bld) CULTURE, BLOOD: No growth 5 days Normal [facility] Comment on above: Performed By: #### 6 00-7 ####[facility]ATORYCLIA [id number] [place] [address] [place] Basic metabolic 2000 panelon 06-15-2021 Anion gap [Moles/Vol] 9 mmol/L Normal 9-18 [facility] Comment on above: Order Comment: Speci men Type: BLOOD SPECIMEN Performed By: #### 2 4321-2, 2776-05, ####[facility]ORATORYCLIA [id number] [place], [place] [address] [place] [address] STATES [facility] Calcium [Mass/Vol] 9.0 mg/dL Normal 8.5-10.2 [facility] Comment on above: Order Comment: Speci men Type: BLOOD SPECIMEN Performed By: #### 2 4321-2, 2776-05, ####[facility]ATORYCLIA [id number] [address] [place] Chloride [Moles/Vol] 125 mmol/L High 97-105 [facility] Comment on above: Order Comment: Speci men Type: BLOOD SPECIMEN Performed By: #### 2 4321-2, 2776-05, ####[facility]ATORYCLIA [id number] [address] [place] CO2 [Moles/Vol] 29 mmol/L Normal 22-30 [facility] Comment on above: Order Comment: Speci men Type: BLOOD SPECIMEN Performed By: #### 2 4321-2, 2776-05, ####[facility]ATORYCLIA [id number] [address] [place] Creatinine [Mass/Vol] 0.81 mg/dL Normal 0.73-1.22 [facility] Comment on above: Order Comment: Speci men Type: BLOOD SPECIMEN Performed By: #### 2 4321-2, 2776-05, ####[facility]ATORYCLIA [id number] [place] [address] [place] GFR/1.73 sq M.predicted MDRD (S/P/Bld) [Vol rate/Area] mL/min/{1.73_m2} Normal [facility] Comment on above: [...] 2 4321-2, 2776-05, ####[facility]IANACLIA [id number] [place] [address] [place] Glucose [Mass/Vol] 124 mg/dL High 74-99 [facility] Comment on above: Order Comment: Speci men Type: BLOOD SPECIMEN Result Comment: The [place] [employer] (ADA) provides guidance for cutoff [...] Standards of Medical Care in Diabetes 2016, [place] [employer]. Diabetes Care. 2016.39(Suppl 1). Performed By: #### 2 4321-2, 2776-05, ####[facility]ORATORYCLIA [id number] [place] [address] [place] Potassium [Moles/Vol] 3.8 mmol/L Normal 3.7-5.1 [facility] Comment on above: Order Comment: Speci men Type: BLOOD SPECIMEN Performed By: #### 2 4321-2, 27711-04, ####[facility]ATORYCLIA [id number] [place] [address] [place] Sodium [Moles/Vol] 163 mmol/L High 136-144 [facility] Comment on above: Order Comment: Speci men Type: BLOOD SPECIMEN Performed By: #### 2 4321-2, 2776-, ####[facility]ATORYCLIA [id number] [place], [place] [address] [place] [address] [place] [facility] Urea nitrogen [Mass/Vol] 35 mg/dL High 9-24 [facility] Comment on above: Order Comment: Speci men Type: BLOOD SPECIMEN Performed By: #### 2 4321-2, 2776-, ####[facility]ATORYCLIA [id number] [address] CBC panel Auto (Bld)on 06-15 Erythrocyte distribution width (RBC) [Ratio] 16.3 % High 11.5-15.0 [facility] Comment on above: Order Comment: Speci men Type: BLOOD SPECIMENOrdering Facility: [facility] Address: [address] [place] [address] Performed By: #### 5 8410-2 ####[facility]ATORYCLIA [id number] [address] Hematocrit (Bld) [Volume fraction] 30.0 % Low 39.0-51.0 [facility] Comment on above: Order Comment: Speci men Type: BLOOD SPECIMENOrdering Facility: [facility] Address: [address] [place] [address] Performed By: #### 5 8410-2 ####[facility]ATORYCLIA [id number] [address] Hemoglobin (Bld) [Mass/Vol] 8.9 g/dL Low 13.0-17.0 [facility] Comment on above: Order Comment: Speci men Type: BLOOD SPECIMENOrdering Facility: [facility] Address: [facility] [place] [address] Performed By: #### 5 8410-2 ####[facility]ORATORYCLIA [id number] [address] MCH (RBC) [Entitic mass] 28.7 pg Normal 26.0-34.0 [facility] Comment on above: Order Comment: Speci men Type: BLOOD SPECIMENOrdering Facility: [facility] Address: [address] [place] [address] Performed By: #### 5 8410-2 ####[facility]ATORYCLIA [id number] [address] MCHC (RBC) [Mass/Vol] 29.7 g/dL Low 30.5-36.0 [facility] Comment on above: Order Comment: Speci men Type: BLOOD SPECIMENOrdering Facility: [facility] Address: [address] [place] [address] Performed By: #### 5 8410-2 ####[facility]ATORYCLIA [id number] [address] MCV (RBC) [Entitic vol] 96.8 fL Normal 80.0-100.0 [facility] Comment on above: Order Comment: Speci men Type: BLOOD SPECIMENOrdering Facility: [facility] Address: [address] [place] [address] Performed By: #### 5 8410-2 ####[facility]ATORYCLIA [id number] [address] Nucleated RBC (Bld) [#/Vol] 10*3/uL Normal <0.01 [facility] Comment on above: Order Comment: Speci men Type: BLOOD SPECIMENOrdering Facility: [facility] Address: [address] [place] [address] Performed By: #### 5 8410-2 ####[facility]ORATORYCLIA [id number] [address] Platelet mean volume (Bld) [Entitic vol] 12.3 fL Normal 9.0-12.7 [facility] Comment on above: Order Comment: Speci men Type: BLOOD SPECIMENOrdering Facility: [facility] Address: [address] [address] Performed By: #### 5 8410-2 ####[facility]ATORYCLIA [id number] [address] OF [facility] Platelets (Bld) [#/Vol] 226 10*3/uL Normal 150-400 [facility] Comment on above: Order Comment: Speci men Type: BLOOD SPECIMENOrdering Facility: [facility] Address: [address] [place] [address] Performed By: #### 5 8410-2 ####[facility]ORATORYCLIA [id number] [address] [place] RBC (Bld) [#/Vol] 3.10 10*6/uL Low 4.20-6.00 [facility] Comment on above: Order Comment: Speci men Type: BLOOD SPECIMENOrdering Facility: [facility] Address: [address] [place] [address] Performed By: #### 5 8410-2 ####[facility]ORATORYCLIA [id number] [address] OF [facility] WBC (Bld) [#/Vol] 10.77 10*3/uL Normal 3.70-11.00 [facility] Comment on above: Order Comment: Speci men Type: BLOOD SPECIMENOrdering Facility: [facility] Address: [address] [place] [address] Performed By: #### 5 8410-2 ####[facility]ATORYCLIA [id number] [address] Erythrocyte distribution width (RBC) [Ratio] 16.2 % High 11.5-15.0 [facility] Comment on above: Order Comment: Speci men Type: BLOOD SPECIMENOrdering Facility: [facility] Address: [address] [place] [address] Performed By: #### 5 8410-2 ####[facility]ATORYCLIA [id number] [address] Hematocrit (Bld) [Volume fraction] 34.8 % Low 39.0-51.0 [facility] Comment on above: Order Comment: Speci men Type: BLOOD SPECIMENOrdering Facility: [facility] Address: [address] [place] [address] Performed By: #### 5 8410-2 ####[facility]ATORYCLIA [id number] [address] STATES OF [facility] Hemoglobin (Bld) [Mass/Vol] 10.0 g/dL Low 13.0-17.0 [facility] Comment on above: Order Comment: Speci men Type: BLOOD SPECIMENOrdering Facility: [facility] Address: [address] [place] [address] Performed By: #### 5 8410-2 ####[facility]ATORYCLIA [id number] [address] [place] MCH (RBC) [Entitic mass] 27.5 pg Normal 26.0-34.0 [facility] Comment on above: Order Comment: Speci men Type: BLOOD SPECIMENOrdering Facility: [facility] Address: [address] [place] [address] Performed By: #### 5 8410-2 ####[facility]ATORYCLIA [id number] [address] [place] MCHC (RBC) [Mass/Vol] 28.7 g/dL Low 30.5-36.0 [facility] Comment on above: Order Comment: Speci men Type: BLOOD SPECIMENOrdering Facility: [facility] Address: [address] [place] [address] Performed By: #### 5 8410-2 ####[facility]ORATORYCLIA [id number] [address] MCV (RBC) [Entitic vol] 95.6 fL Normal 80.0-100.0 [facility] Comment on above: Order Comment: Speci men Type: BLOOD SPECIMENOrdering Facility: [facility] Address: [address] [place] [address] Performed By: #### 5 8410-2 ####[facility]ATORYCLIA [id number] [address] [place] Nucleated RBC (Bld) [#/Vol] 10*3/uL Normal <0.01 [facility] Comment on above: Order Comment: Speci men Type: BLOOD SPECIMENOrdering Facility: [facility] Address: [address] [place] [address] Performed By: #### 5 8410-2 ####[facility]ORATORYCLIA [id number] [address] [place] Platelet mean volume (Bld) [Entitic vol] 11.9 fL Normal 9.0-12.7 [facility] Comment on above: Order Comment: Speci men Type: BLOOD SPECIMENOrdering Facility: [facility] Address: [address] [place] [address] Performed By: #### 5 8410-2 ####[facility]ORATORYCLIA [id number] [address] [place] Platelets (Bld) [#/Vol] 246 10*3/uL Normal 150-400 [facility] Comment on above: Order Comment: Speci men Type: BLOOD SPECIMENOrdering Facility: [facility] Address: [address] [place] [address] Performed By: #### 5 8410-2 ####[facility]ORATORYCLIA [id number] [address] [place] RBC (Bld) [#/Vol] 3.64 10*6/uL Low 4.20-6.00 [facility] Comment on above: Order Comment: Speci men Type: BLOOD SPECIMENOrdering Facility: [facility] Address: [address] [place] [address] Performed By: #### 5 8410-2 ####[facility]ORATORYCLIA [id number] [place] [address] [place] WBC (Bld) [#/Vol] 11.45 10*3/uL High 3.70-11.00 [facility] Comment on above: Order Comment: Speci men Type: BLOOD SPECIMENOrdering Facility: [facility] Address: [address] [place] [address] Performed By: #### 5 8410-2 ####[facility]ORATORYCLIA [id number] [address] Erythrocyte distribution width (RBC) [Ratio] 15.9 % High 11.5-15.0 [facility] Comment on above: Order Comment: Speci men Type: BLOOD SPECIMEN Performed By: #### 5 8410-2 ####[facility]ATORYCLIA [id number] [address] Hematocrit (Bld) [Volume fraction] 35.8 % Low 39.0-51.0 [facility] Comment on above: Order Comment: Speci men Type: BLOOD SPECIMEN Performed By: #### 5 8410-2 ####[facility]ATORYCLIA [id number] [address] OF [facility] Hemoglobin (Bld) [Mass/Vol] 10.4 g/dL Low 13.0-17.0 [facility] Comment on above: Order Comment: Speci men Type: BLOOD SPECIMEN Performed By: #### 5 8410-2 ####[facility]ATORYCLIA [id number] [address] MCH (RBC) [Entitic mass] 28.0 pg Normal 26.0-34.0 [facility] Comment on above: Order Comment: Speci men Type: BLOOD SPECIMEN Performed By: #### 5 8410-2 ####[facility]ATORYCLIA [id number] [address] OF [facility] MCHC (RBC) [Mass/Vol] 29.1 g/dL Low 30.5-36.0 [facility] Comment on above: Order Comment: Speci men Type: BLOOD SPECIMEN Performed By: #### 5 8410-2 ####[facility]ATORYCLIA [id number] [address] MCV (RBC) [Entitic vol] 96.2 fL Normal 80.0-100.0 [facility] Comment on above: Order Comment: Speci men Type: BLOOD SPECIMEN Performed By: #### 5 8410-2 ####[facility]ATORYCLIA [id number] [address] Nucleated RBC (Bld) [#/Vol] 10*3/uL Normal <0.01 [facility] Comment on above: Order Comment: Speci men Type: BLOOD SPECIMEN Performed By: #### 5 8410-2 ####[facility]ATORYCLIA [id number] [address] Platelet mean volume (Bld) [Entitic vol] 11.6 fL Normal 9.0-12.7 [facility] Comment on above: Order Comment: Speci men Type: BLOOD SPECIMEN Performed By: #### 5 8410-2 ####[facility]ATORYCLIA [id number] [address] Platelets (Bld) [#/Vol] 265 10*3/uL Normal 150-400 [facility] Comment on above: Order Comment: Speci men Type: BLOOD SPECIMEN Performed By: #### 5 8410-2 ####[facility]ATORYCLIA [id number] [address] OF [facility] RBC (Bld) [#/Vol] 3.72 10*6/uL Low 4.20-6.00 [facility] Comment on above: Order Comment: Speci men Type: BLOOD SPECIMEN Performed By: #### 5 8410-2 ####[facility]ATORYCLIA [id number] [address] WBC (Bld) [#/Vol] 12.24 10*3/uL High 3.70-11.00 [facility] Comment on above: Order Comment: Speci men Type: BLOOD SPECIMEN Performed By: #### 5 8410-2 ####[facility]ATORYCLIA [id number] [address] [place] CONSULTon 06-15-2021 CONSULT Normal [facility] CONSULT Normal [facility] CONSULT Normal [facility] CT BRAIN WO IVCONon 06-15-19 CT BRAIN WO IVCON Normal [facility] CT CHEST W IVCON PEon 2021 CT CHEST W IVCON PE Invalid Interpretation Code [facility] Chloride Unsp time (U) [Mole s/Vol]on 06-15-2021 Chloride (U) [Moles/Vol] 28 mmol/L Normal 16-250 [facility] Comment on above: Order Comment: Speci men Type: URINE SPECIMENOrdering Facility: [facility] Address: [address] [place] [address] Performed By: #### U TPR, 48513-1, 09220-1, 22067-1 ####[facility]ATORYCLIA [id number] [address] Comprehensive metabolic 2000 panelon 06-15-2021 Albumin [Mass/Vol] 2.8 g/dL Low 3.9-4.9 [facility] Comment on above: Order Comment: Speci men Type: BLOOD SPECIMENOrdering Facility: [facility] Address: [address] [place] [address] Performed By: #### 2 4323-8 ####[facility]ORATORYCLIA [id number] [address] [place] ALP [Catalytic activity/Vol] 74 U/L Normal 38-113 [facility] Comment on above: Order Comment: Speci men Type: BLOOD SPECIMENOrdering Facility: [facility] Address: [address] [place] [address] Performed By: #### 2 4323-8 ####[facility]ORATORYCLIA [id number] [address] [place] ALT With P-5'-P [Catalytic activity/Vol] 50 U/L Normal 10-54 [facility] Comment on above: Order Comment: Speci men Type: BLOOD SPECIMENOrdering Facility: [facility] Address: [address] [address] Performed By: #### 2 4323-8 ####[facility] LABORATORYCLIA [id number] [address] STATES OF [facility] Anion gap [Moles/Vol] 12 mmol/L Normal 9-18 [facility] Comment on above: Order Comment: Speci men Type: BLOOD SPECIMENOrdering Facility: [facility] Address: [address] [place] [address] Performed By: #### 2 4323-8 ####[facility]ORATORYCLIA [id number] [place] [address] [place] AST With P-5'-P [Catalytic activity/Vol] 36 U/L Normal 14-40 [facility] Comment on above: Order Comment: Speci men Type: BLOOD SPECIMENOrdering Facility: [facility] Address: [address] [place] [address] Performed By: #### 2 4323-8 ####[facility]ORATORYCLIA [id number] [place] [address] [place] Bilirubin [Mass/Vol] 0.5 mg/dL Normal 0.2-1.3 [facility] Comment on above: Order Comment: Speci men Type: BLOOD SPECIMENOrdering Facility: [facility] Address: [address] [place] [address] Performed By: #### 2 4323-8 ####[facility]ORATORYCLIA [id number] [address] [place] [facility] Calcium [Mass/Vol] 8.8 mg/dL Normal 8.5-10.2 [facility] Comment on above: Order Comment: Speci men Type: BLOOD SPECIMENOrdering Facility: [facility] Address: [address] [place] [address] Performed By: #### 2 4323-8 ####[facility]ORATORYCLIA [id number] [place] [address] [place] Chloride [Moles/Vol] 126 mmol/L High 97-105 [facility] Comment on above: Order Comment: Johncara feldman Type: BLOOD SPECIMENOrdering Facility: [facility] Address: [address] [place] [address] Performed By: #### 2 4323-8 ####[facility]ORATORYCLIA [id number] [address] [place] CO2 [Moles/Vol] 24 mmol/L Normal 22-30 [facility] Comment on above: Order Comment: Shira francia Type: BLOOD SPECIMENOrdering Facility: [facility] Address: [address] [place] [address] Performed By: #### 2 4323-8 ####[facility]ORATORYCLIA [id number] [address] [place] Creatinine [Mass/Vol] 0.84 mg/dL Normal 0.73-1.22 [facility] Comment on above: Order Comment: Shira francia Type: BLOOD SPECIMENOrdering Facility: [facility] Address: [address] [place] [address] Performed By: #### 2 4323-8 ####[facility]ORATORYCLIA [id number] [address] [place] GFR/1.73 sq M.predicted MDRD (S/P/Bld) [Vol rate/Area] mL/min/{1.73_m2} Normal [facility] Comment on above: Order Comment: Johncara feldman Type: BLOOD SPECIMENOrdering Facility: [facility] Address: [address] [place] [address] Result Comment: >60e GFR (Estimated GFR) Units [...] actual GFR. Performed By: #### 2 4323-8 ####[facility]ORATORYCLIA [id number] [place] [address] [place] Glucose [Mass/Vol] 142 mg/dL High 74-99 [facility] Comment on above: Order Comment: Shira francia Type: BLOOD SPECIMENOrdering Facility: [facility] Address: [address] [place] [address] Result Comment: The [place] [employer] (ADA) provides guidance for cutoff [...] Standards of Medical Care in Diabetes 2016, [place] [employer]. Diabetes Care. 2016.39(Suppl 1). Performed By: #### 2 4323-8 ####[facility]ORATORYCLIA [id number] [place] [address] [place] Potassium [Moles/Vol] 3.8 mmol/L Normal 3.7-5.1 [facility] Comment on above: Order Comment: Shira feldman Type: BLOOD SPECIMENOrdering Facility: [facility] Address: [address] [place] [address] Performed By: #### 2 4323-8 ####[facility]ORATORYCLIA [id number] [place] [address] [place] Protein [Mass/Vol] 6.1 g/dL Low 6.3-8.0 [facility] Comment on above: Order Comment: Shira feldman Type: BLOOD SPECIMENOrdering Facility: [facility] Address: [address] [place] [address] Performed By: #### 2 4323-8 ####[facility]ORATORYCLIA [id number] [place] [address] [place] [place] Sodium [Moles/Vol] 162 mmol/L High 136-144 [facility] Comment on above: Order Comment: Speci men Type: BLOOD SPECIMENOrdering Facility: [facility] Address: [address] [place] [address] Performed By: #### 2 4323-8 ####[facility] LABORATORYCLIA [id number] [place] [address] [place] Urea nitrogen [Mass/Vol] 33 mg/dL High 9-24 [facility] Comment on above: Order Comment: Speci men Type: BLOOD SPECIMENOrdering Facility: [facility] Address: [address] [place] [address] Performed By: #### 2 4323-8 ####[facility] LABORATORYCLIA [id number] [address] [place] Creatinine Unsp time (U) [Ma ss/Vol]on 06-15-2021 Creatinine (U) [Mass/Vol] 87.0 mg/dL Normal 46.8-314.5 [facility] Comment on above: Order Comment: Speci men Type: URINE SPECIMENOrdering Facility: [facility] Address: [address] [place] [address] Performed By: #### U TPR, 40712-3, 39162-7, 56574-8 ####[facility] LABORATORYCLIA [id number] [address] [place] HIGH SENSITIVITY TROPONIN To n 06-15-2021 HIGH SENSITIVITY TAMIKO 23 ng/L High <12 [facility] Comment on above: Order Comment: Speci men Type: BLOOD SPECIMENOrdering Facility: [facility] Address: [address] [place] [address] Result Comment: When assessing risk for acute [...] day MACE. Performed By: #### P ROCAL, 71047-1, HSTNT ####[facility] [id number] [address] [place] [facility] Lactate (Bld) [Moles/Vol]on 06-15-2021 Lactate [Moles/Vol] 0.8 mmol/L Normal 0.5-2.2 [facility] Comment on above: Order Comment: Speci men Type: BLOOD SPECIMENOrdering Facility: [facility] Address: [address] [place] [address] Performed By: #### 3 2693-4 ####[facility] [id number] [address] [place] [facility] Magnesium [Mass/Vol] 3.0 mg/dL High 1.7-2.3 [facility] Comment on above: Order Comment: Speci men Type: BLOOD SPECIMEN Performed By: #### 2 4321-2, 2777-1, 46661-4 ####[facility]CL[facility] [id number] [address] NT-proBNP [facility] Natriuretic peptide.B prohormone N-Terminal [Mass/Vol] 265 pg/mL High <125 [facility] Comment on above: Order Comment: Speci men Type: BLOOD SPECIMENOrdering Facility: [facility] Address: [address] [place] [address] Performed By: #### P ROCAL, 65415-4, HSTNT ####[facility] LABORATORYCLIA [id number] [address] Osmolality Uron 06-15-2021 Osmolality (U) [Osmolality] 606 mosm/kg Normal 50-1,200 [facility] Comment on above: Order Comment: Speci men Type: URINE SPECIMENOrdering Facility: [facility] Address: [address] [place] [address] Performed By: #### 2 695-5 ####[facility] LABORATORYCLIA [id number] [address] PROCALCITONIN (LAB)on 2021 Procalcitonin [Mass/Vol] 0.21 ng/mL High <0.09 [facility] Comment on above: Order Comment: Speci men Type: BLOOD SPECIMENOrdering Facility: [facility] Address: [address] [place] [address] Result Comment: For a guided interpretation of test results, please visit the Change in Procalcitonin Calculator, [email or web address]. Performed By: #### P JULIANNE, 2951-2 ####[facility] LABORATORYCLIA [id number] [address] Procalcitonin [Mass/Vol] 0.17 ng/mL High <0.09 [facility] Comment on above: Order Comment: Speci men Type: BLOOD SPECIMENOrdering Facility: [facility] Address: [address] [place] [address] Result Comment: For a guided interpretation of test results, please visit the Change in Procalcitonin Calculator, [email or web address]. Performed By: #### P JULIANNE, 49362-6, HSTNT ####[facility]ORATORYCLIA [id number] [address] PROTEIN RANDOM URon 06-15-19 22 Protein (U) [Mass/Vol] 175 mg/dL High 0-20 [facility] Comment on above: Order Comment: Speci men Type: URINE SPECIMENOrdering Facility: [facility] Address: [address] [place] [address] Performed By: #### U TPR, 09838-2, 35373-6, 75712-8 ####[facility] LABORATORYCLIA [id number] [address] PT panel Coag (PPP)on 2021 INR Coag (PPP) [Relative time] 1.1 {INR} Normal <1.4 [facility] Comment on above: Order Comment: Shira feldman Type: BLOOD SPECIMENOrdering Facility: [facility] Address: [address] [place] [address] Result Comment: Yris min K Antagonist (VKA) Therapeutic Range: INR 2 to 3 (Target INR of 2.5)Note: For patients treated with VKA drugs, such as warfarin, the [place] [employer] 2012 Guideline recommends [...] al. Chest 2012, 141:7S-47SNishimura RA, et al. [facility] 2017, 70: 252-289 Performed By: #### 3 4528-0, 42798-2 ####[employer] LABORATORYCLIA [id number] [place] [address] [place] PT Coag (PPP) [Time] 11.4 s Normal <13.1 [facility] Comment on above: Order Comment: Shira feldman Type: BLOOD SPECIMENOrdering Facility: [facility] Address: [address] [place] [address] Performed By: #### 3 4528-0, 32271-4 ####[facility]ORATORYCLIA [id number] [place] [address] [place] Phosphate SerPl-mCncon 06-15 Phosphate [Mass/Vol] 2.6 mg/dL Low 2.7-4.8 [facility] Comment on above: Order Comment: Shira feldman Type: BLOOD SPECIMEN Performed By: #### 2 4321-2, 2777-1, 19062-4 ####[facility] LABORATORYCLIA [id number] [place] [address] [place] Sodium ?Tm Ur-sCncon 022 Sodium Unsp time (U) [Moles/Vol] 34 mmol/L Normal 14-216 [facility] Comment on above: Order Comment: Speci men Type: URINE SPECIMENOrdering Facility: [facility] Address: [address] [place] [address] Performed By: #### U TPR, 59186-5, 82499-7, 70769-8 ####[facility] LABORATORYCLIA [id number] [address] [place] Sodium SerPl-sCncon 06-15-19 22 Sodium [Moles/Vol] 159 mmol/L High 136-144 [facility] Comment on above: Order Comment: Speci men Type: BLOOD SPECIMENOrdering Facility: [facility] Address: [address] [place] [address] Performed By: #### P JULIANNE, 2951-2 ####[facility] LABORATORYCLIA [id number] [address] [place] THERAPY NTon 06-15-2021 THERAPY NT Normal [facility] Urinalysis complete panel (U )on 06-15-2021 Bacteria LM.HPF (Urine sed) [#/Area] None Seen Normal None Seen [facility] Comment on above: Order Comment: Speci men Type: URINE SPECIMENOrdering Facility: [facility] Address: [address] [place] [address] Performed By: #### 2 4356-8 ####[facility] LABORATORYCLIA [id number] [address] [place] Bilirubin Ql (U) Negative Normal Negative [facility] Comment on above: Order Comment: Speci men Type: URINE SPECIMENOrdering Facility: [facility] Address: [address] [place] [address] Performed By: #### 2 4356-8 ####[facility] LABORATORYCLIA [id number] [place] [address] Clarity (Unsp spec) Cloudy Abnormal Clear [facility] Comment on above: Order Comment: Speci men Type: URINE SPECIMENOrdering Facility: [facility] Address: [address] [place] [address] Performed By: #### 2 4356-8 ####[facility] LABORATORYCLIA [id number] [address] Color (U) Yellow Normal Yellow [facility] Comment on above: Order Comment: Speci men Type: URINE SPECIMENOrdering Facility: [facility] Address: [address] [place] [address] Performed By: #### 2 4356-8 ####[facility] LABORATORYCLIA [id number] [address] Epithelial cells LM.HPF (Urine sed) [#/Area] 7.1 /[HPF] Normal [facility] Comment on above: Order Comment: Speci men Type: URINE SPECIMENOrdering Facility: [facility] Address: [address] [place] [address] Performed By: #### 2 4356-8 ####[facility]ORATORYCLIA [id number] [address] Glucose Test strip (U) [Mass/Vol] Negative Normal Negative [facility] Comment on above: Order Comment: Speci men Type: URINE SPECIMENOrdering Facility: [facility] Address: [address] [place] [address] Performed By: #### 2 4356-8 ####[facility] LABORATORYCLIA [id number] [address] Granular casts (Urine sed) [#/Area] /[LPF] Abnormal 0 /LPF [facility] Comment on above: Order Comment: Speci men Type: URINE SPECIMENOrdering Facility: [facility] Address: [address] [place] [address] Performed By: #### 2 4356-8 ####[facility]ORATORYCLIA [id number] [address] Hemoglobin Ql (U) Moderate Abnormal Negative [facility] Comment on above: Order Comment: Speci men Type: URINE SPECIMENOrdering Facility: [facility] Address: [address] [place] [address] Performed By: #### 2 4356-8 ####[facility] LABORATORYCLIA [id number] [address] [place] Hyaline casts (Urine sed) [#/Area] /[LPF] Abnormal 0 /LPF [facility] Comment on above: Order Comment: Speci men Type: URINE SPECIMENOrdering Facility: [facility] Address: [address] [place] [address] Performed By: #### 2 4356-8 ####[facility] LABORATORYCLIA [id number] [address] [place] [facility] Ketones Ql (U) Negative Normal Negative [facility] Comment on above: Order Comment: Speci men Type: URINE SPECIMENOrdering Facility: [facility] Address: [address] [place] [address] Performed By: #### 2 4356-8 ####[facility] LABORATORYCLIA [id number] [address] Leukocyte esterase Test strip Ql (U) Negative Normal Negative [facility] Comment on above: Order Comment: Speci men Type: URINE SPECIMENOrdering Facility: [facility] Address: [address] [place] [address] Performed By: #### 2 4356-8 ####[facility] LABORATORYCLIA [id number] [address] [place] Nitrite Ql (U) Negative Normal Negative [facility] Comment on above: Order Comment: Speci men Type: URINE SPECIMENOrdering Facility: [facility] Address: [address] [place] [address] Performed By: #### 2 4356-8 ####[facility] LABORATORYCLIA [id number] [address] [place] pH (U) 6.0 [pH] Normal 5.0-8.0 [facility] Comment on above: Order Comment: Speci men Type: URINE SPECIMENOrdering Facility: [facility] Address: [address] [place] [address] Performed By: #### 2 4356-8 ####[facility]ORATORYCLIA [id number] [address] [place] Protein (U) [Mass/Vol] 100 mg/dL Abnormal Negative [facility] Comment on above: Order Comment: Speci men Type: URINE SPECIMENOrdering Facility: [facility] Address: [address] [place] [address] Performed By: #### 2 4356-8 ####[facility]ORATORYCLIA [id number] [address] [place] RBC LM.HPF (Urine sed) [#/Area] 0-3 /HPF Normal 0-3 /HPF [facility] Comment on above: Order Comment: Speci men Type: URINE SPECIMENOrdering Facility: [facility] Address: [address] [place] [address] Performed By: #### 2 4356-8 ####[facility] LABORATORYCLIA [id number] [address] [place] [facility] Specific gravity (U) [Rel density] 1.024 Normal 1.005-1.030 [facility] Comment on above: Order Comment: Speci men Type: URINE SPECIMENOrdering Facility: [facility] Address: [address] [place] [address] Performed By: #### 2 4356-8 ####[facility]ORATORYCLIA [id number] [address] Urobilinogen Ql (U) 0.2 EU/dL Normal 0.2-1.0 EU/dL [facility] Comment on above: Order Comment: Speci men Type: URINE SPECIMENOrdering Facility: [facility] Address: [address] [place] [address] Performed By: #### 2 4356-8 ####[facility]ORATORYCLIA [id number] [address] WBC LM.HPF (Urine sed) [#/Area] 0-5 /HPF Normal 0-5 /HPF [facility] Comment on above: Order Comment: Speci men Type: URINE SPECIMENOrdering Facility: [facility] Address: [facility] [place] [address] Performed By: #### 2 4356-8 ####[facility] LABORATORYCLIA [id number] [address] [place] [facility] XR CHEST 1V FRONTALon 2021 XR CHEST 1V FRONTAL Normal [facility] XR CHEST 1V FRONTAL PORTon 0 06-15-2021 XR CHEST 1V FRONTAL PORT Normal [facility] XR CHEST 1V FRONTAL PORT Normal [facility] aPTT PPPon 06-15-2021 aPTT Coag (PPP) [Time] 30.9 s Normal 23.0-32.4 [facility] Comment on above: Order Comment: Speci men Type: BLOOD SPECIMENOrdering Facility: [facility] Address: [facility] [place] [address] Performed By: #### 3 4528-0, 68369-2 ####[facility]ORATORYCLIA [id number] [address] [place] [facility] Basic metabolic 2000 panelon 06-14-2021 Anion gap [Moles/Vol] 8 mmol/L Low 9-18 [facility] Comment on above: Order Comment: Speci men Type: BLOOD SPECIMEN Performed By: #### 2 4321-2, 2777-, ####[facility]ORATORYCLIA [id number] [address] [place] [facility] Calcium [Mass/Vol] 8.9 mg/dL Normal 8.5-10.2 [facility] Comment on above: Order Comment: Speci men Type: BLOOD SPECIMEN Performed By: #### 2 4321-2, 27711-04, ####[facility] LABORATORYCLIA [id number] [place] [address] [place] Chloride [Moles/Vol] 121 mmol/L High 97-105 [facility] Comment on above: Order Comment: Speci men Type: BLOOD SPECIMEN Performed By: #### 2 4321-2, 2776-05, ####[facility] LABORATORYCLIA [id number] [place] [id number] [place] CO2 [Moles/Vol] 30 mmol/L Normal 22-30 [facility] Comment on above: Order Comment: Speci men Type: BLOOD SPECIMEN Performed By: #### 2 4321-2, 2776-05, ####[facility]ORATORYCLIA [id number] [address] [place] Creatinine [Mass/Vol] 0.78 mg/dL Normal 0.73-1.22 [facility] Comment on above: Order Comment: Speci men Type: BLOOD SPECIMEN Performed By: #### 2 4321-2, 2776-05, ####[facility]ORATORYCLIA [id number] [address] [place] GFR/1.73 sq M.predicted MDRD (S/P/Bld) [Vol rate/Area] mL/min/{1.73_m2} Normal [facility] Comment on above: [...] GFR. Performed By: #### 2 4321-2, 2776-05, ####[facility] LABORATORYCLIA [id number] [place] [address] [place] Glucose [Mass/Vol] 132 mg/dL High 74-99 [facility] Comment on above: Order Comment: Speci men Type: BLOOD SPECIMEN Result Comment: The [place] [employer] (ADA) provides guidance for cutoff [...] Standards of Medical Care in Diabetes 2016, [place] [employer]. Diabetes Care. 2016.39(Suppl 1). Performed By: #### 2 4321-2, 2776-05, ####[facility]ORATORYCLIA [id number] [place] [address] [place] Potassium [Moles/Vol] 3.7 mmol/L Normal 3.7-5.1 [facility] Comment on above: Order Comment: Speci men Type: BLOOD SPECIMEN Performed By: #### 2 1-2, 2776-05, ####[facility] LABORATORYCLIA [id number] [place] [address] [place] Sodium [Moles/Vol] 159 mmol/L High 136-144 [facility] Comment on above: Order Comment: Speci men Type: BLOOD SPECIMEN Performed By: #### 2 4321-2, 2776-05, ####[facility] LABORATORYCLIA [id number] [place] [address] [place] Urea nitrogen [Mass/Vol] 35 mg/dL High 9-24 [facility] Comment on above: Order Comment: Speci men Type: BLOOD SPECIMEN Performed By: #### 2 4321-2, 2776-05, ####[facility] LABORATORYCLIA [id number] [address] CASE MANAGEMon 06-14-2021 CASE MANAGEM Normal [facility] CBC panel Auto (Bld)on 06-14 Erythrocyte distribution width (RBC) [Ratio] 16.2 % High 11.5-15.0 [facility] Comment on above: Order Comment: Speci men Type: BLOOD SPECIMEN Performed By: #### 5 8410-2 ####[facility] LABORATORYCLIA [id number] [address] Hematocrit (Bld) [Volume fraction] 35.2 % Low 39.0-51.0 [facility] Comment on above: Order Comment: Speci men Type: BLOOD SPECIMEN Performed By: #### 5 8410-2 ####[facility] LABORATORYCLIA [id number] [address] Hemoglobin (Bld) [Mass/Vol] 10.1 g/dL Low 13.0-17.0 [facility] Comment on above: Order Comment: Speci men Type: BLOOD SPECIMEN Performed By: #### 5 8410-2 ####[facility] LABORATORYCLIA [id number] [address] MCH (RBC) [Entitic mass] 27.2 pg Normal 26.0-34.0 [facility] Comment on above: Order Comment: Speci men Type: BLOOD SPECIMEN Performed By: #### 5 8410-2 ####[facility] LABORATORYCLIA [id number] [address] MCHC (RBC) [Mass/Vol] 28.7 g/dL Low 30.5-36.0 [facility] Comment on above: Order Comment: Speci men Type: BLOOD SPECIMEN Performed By: #### 5 8410-2 ####[facility] LABORATORYCLIA [id number] [address] MCV (RBC) [Entitic vol] 94.6 fL Normal 80.0-100.0 [facility] Comment on above: Order Comment: Speci men Type: BLOOD SPECIMEN Performed By: #### 5 8410-2 ####[facility] LABORATORYCLIA [id number] [address] Nucleated RBC (Bld) [#/Vol] 10*3/uL Normal <0.01 [facility] Comment on above: Order Comment: Speci men Type: BLOOD SPECIMEN Performed By: #### 5 8410-2 ####[facility]ORATORYCLIA [id number] [address] Platelet mean volume (Bld) [Entitic vol] 11.0 fL Normal 9.0-12.7 [facility] Comment on above: Order Comment: Speci men Type: BLOOD SPECIMEN Performed By: #### 5 8410-2 ####[facility] LABORATORYCLIA [id number] [address] Platelets (Bld) [#/Vol] 287 10*3/uL Normal 150-400 [facility] Comment on above: Order Comment: Speci men Type: BLOOD SPECIMEN Performed By: #### 5 8410-2 ####[facility]ORATORYCLIA [id number] [address] RBC (Bld) [#/Vol] 3.72 10*6/uL Low 4.20-6.00 [facility] Comment on above: Order Comment: Speci men Type: BLOOD SPECIMEN Performed By: #### 5 8410-2 ####[facility]ORATORYCLIA [id number] [address] WBC (Bld) [#/Vol] 12.23 10*3/uL High 3.70-11.00 [facility] Comment on above: Order Comment: Speci men Type: BLOOD SPECIMEN Performed By: #### 5 8410-2 ####[facility]ORATORYCLIA [id number] [address] Comprehensive metabolic 2000 panelon 06-14-2021 Albumin [Mass/Vol] 3.1 g/dL Low 3.9-4.9 [facility] Comment on above: Order Comment: Speci men Type: BLOOD SPECIMEN Performed By: #### 2 4323-8, HSTNT, 2776-05, ####[facility] LABORATORYCLIA [id number] [place], [place] [id number] [place] [address] ALP [Catalytic activity/Vol] 72 U/L Normal 38-113 [facility] Comment on above: Order Comment: Speci men Type: BLOOD SPECIMEN Performed By: #### 2 4323-8, HSTNT, 2776-05, ####[facility] LABORATORYCLIA [id number] [address] ALT With P-5'-P [Catalytic activity/Vol] 57 U/L High 10-54 [facility] Comment on above: Order Comment: Speci men Type: BLOOD SPECIMEN Performed By: #### 2 4323-8, HSTNT, 2776-05, ####[facility] LABORATORYCLIA [id number] [address] Anion gap [Moles/Vol] 9 mmol/L Normal 9-18 [facility] Comment on above: Order Comment: Speci men Type: BLOOD SPECIMEN Performed By: #### 2 4323-8, HSTNT, 2776-05, ####[facility] LABORATORYCLIA [id number] [address] AST With P-5'-P [Catalytic activity/Vol] 33 U/L Normal 14-40 [facility] Comment on above: Order Comment: Speci men Type: BLOOD SPECIMEN Performed By: #### 2 4323-8, HSTNT, 2776-05, ####[facility] LABORATORYCLIA [id number] [place], [place] [id number] [place] [address] [place] [facility] Bilirubin [Mass/Vol] 0.5 mg/dL Normal 0.2-1.3 [facility] Comment on above: Order Comment: Speci men Type: BLOOD SPECIMEN Performed By: #### 2 4323-8, HSTNT, 2776-05, ####[facility] LABORATORYCLIA [id number] [address] [place] [facility] Calcium [Mass/Vol] 8.8 mg/dL Normal 8.5-10.2 [facility] Comment on above: Order Comment: Speci men Type: BLOOD SPECIMEN Performed By: #### 2 4323-8, HSTNT, 2776-05, ####[facility] LABORATORYCLIA [id number] [address] [place] Chloride [Moles/Vol] 124 mmol/L High 97-105 [facility] Comment on above: Order Comment: Speci men Type: BLOOD SPECIMEN Performed By: #### 2 4323-8, HSTNT, 2776-05, ####[facility] LABORATORYCLIA [id number] [address] [place] [facility] CO2 [Moles/Vol] 29 mmol/L Normal 22-30 [facility] Comment on above: Order Comment: Speci men Type: BLOOD SPECIMEN Performed By: #### 2 4323-8, HSTNT, 2776-05, ####[facility] LABORATORYCLIA [id number] [address] [place] Creatinine [Mass/Vol] 0.73 mg/dL Normal 0.73-1.22 [facility] Comment on above: Order Comment: Speci men Type: BLOOD SPECIMEN Performed By: #### 2 4323-8, HSTNT, 2776-05, ####[facility] LABORATORYCLIA [id number] [address] [place] GFR/1.73 sq M.predicted MDRD (S/P/Bld) [Vol rate/Area] mL/min/{1.73_m2} Normal [facility] Comment on above: Order Comment: Speci men Type: BLOOD SPECIMEN Result Comment: >60e GFR (Estimated GFR) Units of measure: mL/min/1.73 meters squaredeGFR is derived from the reexpressed MDRD Study equation using the following parameters: serum creatinine, age, gender and race. The creatinine assay has been calibrated to be traceable to IDMD. An eGFR <60 mL/min/1.73m2 for >3 months is consistent with chronic kidney disease. Refer to KDOQI guidelines for clinical interpretation. In patients with unstable renal function, e.g. those with acute kidney injury, the eGFR may not accurately reflect actual GFR. Performed By: #### 2 4323-8, HSTNT, 2776-05, ####[facility] LABORATORYCLIA [id number] [place] [address] [place] Glucose [Mass/Vol] 137 mg/dL High 74-99 [facility] Comment on above: Order Comment: Speci men Type: BLOOD SPECIMEN Result Comment: The [place] Diabetes [employer] (ADA) provides guidance for cutoff [...] Standards of Medical Care in Diabetes 2016, [place] [employer]. Diabetes Care. 2016.39(Suppl 1). Performed By: #### 2 4323-8, HSTNT, 2776-05, ####[facility] LABORATORYCLIA [id number] [place] [address] [place] Potassium [Moles/Vol] 3.6 mmol/L Low 3.7-5.1 [facility] Comment on above: Order Comment: Speci men Type: BLOOD SPECIMEN Performed By: #### 2 4323-8, HSTNT, 2776-05, ####[facility]ORATORYCLIA [id number] [address] Protein [Mass/Vol] 5.9 g/dL Low 6.3-8.0 [facility] Comment on above: Order Comment: Speci men Type: BLOOD SPECIMEN Performed By: #### 2 4323-8, HSTNT, 7-, ####[facility] LABORATORYCLIA [id number] [address] Sodium [Moles/Vol] 162 mmol/L High 136-144 [facility] Comment on above: Order Comment: Speci men Type: BLOOD SPECIMEN Performed By: #### 2 4323-8, HSTNT, 2776-05, ####[facility] LABORATORYCLIA [id number] [address] Urea nitrogen [Mass/Vol] 33 mg/dL High 9-24 [facility] Comment on above: Order Comment: Speci men Type: BLOOD SPECIMEN Performed By: #### 2 4323-8, HSTNT, 2776-05, ####[facility]ATORYCLIA [id number] [address] HIGH SENSITIVITY TROPONIN To n 06-14-2021 HIGH SENSITIVITY TAMIKO 22 ng/L High <12 [facility] Comment on [...] day MACE. Performed By: #### H STNT ####[facility]ATORYCLIA [id number] [address] HIGH SENSITIVITY TAMIKO 22 ng/L High <12 [facility] Comment on [...] Performed By: #### 2 4323-8, HSTNT, 2776-05, ####[facility]ATORYCLIA [id number] [place], [place] [id number] [place] [address] Magnesium SerPl-mCncon 06-14 Magnesium [Mass/Vol] 2.9 mg/dL High 1.7-2.3 [facility] Comment on above: Order Comment: Speci men Type: BLOOD SPECIMEN Performed By: #### 2 4323-8, HSTNT, 2776-05, ####[facility]ORYCLIA [id number] [address] Magnesium [Mass/Vol] 3.0 mg/dL High 1.7-2.3 [facility] Comment on above: Order Comment: Speci men Type: BLOOD SPECIMEN Performed By: #### 2 4321-2, 2776-05, ####[facility]ORYCLIA [id number] [address] NURSING PROGon 06-14-2021 NURSING PROG Normal [facility] NUTRITIONon 06-14-2021 NUTRITION Normal [facility] Phosphate SerPl-mCncon 06-14 Phosphate [Mass/Vol] 2.4 mg/dL Low 2.7-4.8 [facility] Comment on above: Order Comment: Speci men Type: BLOOD SPECIMEN Performed By: #### 2 4323-8, HSTNT, 2776-05, ####[facility]ORYCLIA [id number] [address] Phosphate [Mass/Vol] 3.2 mg/dL Normal 2.7-4.8 [facility] Comment on above: Order Comment: Speci men Type: BLOOD SPECIMEN Performed By: #### 2 4321-2, 2776-, ####[facility]ORYCLIA [id number] [place] [address] [place] THERAPY NTon 06-14-2021 THERAPY NT Normal [facility] THERAPY NT Normal [facility] THERAPY NT Normal [facility] US DVT LOWER BILon US DVT LOWER RAINER Normal [facility] ALLIED HEALTHon 06-13-2021 ALLIED HEALTH Normal [facility] Basic metabolic 2000 panelon 06-13-2021 Anion gap [Moles/Vol] 7 mmol/L Low 9-18 [facility] Comment on above: Order Comment: Speci men Type: BLOOD SPECIMEN Performed By: #### 2 4321-2, , 2776-05 ####[facility]ORYCLIA [id number] [place] [address] [place] Calcium [Mass/Vol] 8.8 mg/dL Normal 8.5-10.2 [facility] Comment on above: Order Comment: Speci men Type: BLOOD SPECIMEN Performed By: #### 2 4321-2, , 2776-05 ####[facility]ORYCLIA [id number] [place] [address] [place] Chloride [Moles/Vol] 120 mmol/L High 97-105 [facility] Comment on above: Order Comment: Speci men Type: BLOOD SPECIMEN Performed By: #### 2 4321-2, , 2776-05 ####[facility]ORYCLIA [id number] [place] [address] [place] CO2 [Moles/Vol] 28 mmol/L Normal 22-30 [facility] Comment on above: Order Comment: Speci men Type: BLOOD SPECIMEN Performed By: #### 2 4321-2, , 2776-05 ####[facility]ORYCLIA [id number] [place] [address] [place] Creatinine [Mass/Vol] 0.78 mg/dL Normal 0.73-1.22 [facility] Comment on above: Order Comment: [facility] Type: BLOOD SPECIMEN Performed By: #### 2 4321-2, 19703-2, 2777-1 ####[facility]ATORYCLIA [id number] [place] [address] [place] GFR/1.73 sq M.predicted MDRD (S/P/Bld) [Vol rate/Area] mL/min/{1.73_m2} Normal [facility] Comment on above: [...] actual GFR. Performed By: #### 2 4321-2, 53726-2, 27771 ####[facility]ENTERIA [id number] [place] [address] [place] Glucose [Mass/Vol] 126 mg/dL High 74-99 [facility] Comment on above: Order Comment: [facility] Type: BLOOD SPECIMEN Result Comment: The [place] [employer] (ADA) provides guidance for cutoff [...] Standards of Medical Care in Diabetes 2016, [place] [employer]. Diabetes Care. 2016.39(Suppl 1). Performed By: #### 2 4321-2, , 2776-05 ####[facility]ORATORYCLIA [id number] [place] [address] [place] Potassium [Moles/Vol] 3.6 mmol/L Low 3.7-5.1 [facility] Comment on above: Order Comment: Speci men Type: BLOOD SPECIMEN Performed By: #### 2 4321-2, , 2776-05 ####[facility]ORYCLIA [id number] [place] [address] [place] Sodium [Moles/Vol] 155 mmol/L High 136-144 [facility] Comment on above: Order Comment: Speci men Type: BLOOD SPECIMEN Performed By: #### 2 1-2, , 2776-05 ####[facility]ATORYCLIA [id number] [place] [address] [place] Urea nitrogen [Mass/Vol] 36 mg/dL High 9-24 [facility] Comment on above: Order Comment: Speci men Type: BLOOD SPECIMEN Performed By: #### 2 1-2, , 2776-05 ####[facility]ORYCLIA [id number] [place] [address] [place] Anion gap [Moles/Vol] 6 mmol/L Low 9-18 [facility] Comment on above: Order Comment: Speci men Type: BLOOD SPECIMEN Performed By: #### 2 4321-2, 2776-05, ####[facility]ORYCLIA [id number] [place] [address] [place] Calcium [Mass/Vol] 6.5 mg/dL Low 8.5-10.2 [facility] Comment on above: Order Comment: Speci men Type: BLOOD SPECIMEN Performed By: #### 2 4321-2, 2776-05, ####[facility]ORYCLIA [id number] [place] [address] [place] Chloride [Moles/Vol] 124 mmol/L High 97-105 [facility] Comment on above: Order Comment: Speci men Type: BLOOD SPECIMEN Performed By: #### 2 4321-2, 2776-05, ####[facility]ATORYCLIA [id number] [place] [address] [place] CO2 [Moles/Vol] 24 mmol/L Normal 22-30 [facility] Comment on above: Order Comment: Speci men Type: BLOOD SPECIMEN Performed By: #### 2 4321-2, 2776-05, ####[facility]ORYCLIA [id number] [place] [address] [place] Creatinine [Mass/Vol] 0.61 mg/dL Low 0.73-1.22 [facility] Comment on above: Order Comment: Speci men Type: BLOOD SPECIMEN Performed By: #### 2 4321-2, 2776-05, ####[facility]ORYCLIA [id number] [address] [place] GFR/1.73 sq M.predicted MDRD (S/P/Bld) [Vol rate/Area] mL/min/{1.73_m2} Normal [facility] Comment on above: [...] GFR. Performed By: #### 2 4321-2, 2776-05, ####[facility]ATORYCLIA [id number] [place] [address] [place] Glucose [Mass/Vol] 100 mg/dL High 74-99 [facility] Comment on above: Order Comment: Speci men Type: BLOOD SPECIMEN Result Comment: The [place] Diabetes [employer] (ADA) provides guidance for cutoff [...] Standards of Medical Care in Diabetes 2016, [place] [employer]. Diabetes Care. 2016.39(Suppl 1). Performed By: #### 2 4321-2, 2776-05, ####[facility]ATORYCLIA [id number] [place] [address] [place] Potassium [Moles/Vol] 2.7 mmol/L Low 3.7-5.1 [facility] Comment on above: Order Comment: Speci men Type: BLOOD SPECIMEN Performed By: #### 2 4321-2, 2776-05, ####[facility]ATORYCLIA [id number] [address] STATES OF [facility] Sodium [Moles/Vol] 154 mmol/L High 136-144 [facility] Comment on above: Order Comment: Speci men Type: BLOOD SPECIMEN Performed By: #### 2 4321-2, 2776-05, ####[facility]ORYCLIA [id number] [place] [address] [place] Urea nitrogen [Mass/Vol] 29 mg/dL High 9-24 [facility] Comment on above: Order Comment: Speci men Type: BLOOD SPECIMEN Performed By: #### 2 4321-2, 2776-05, ####[facility]ORYCLIA [id number] [address] [place] CASE MANAGEMon 06-13-2021 CASE MANAGEM Normal [facility] CBC panel Auto (Bld)on 06-13 Erythrocyte distribution width (RBC) [Ratio] 15.9 % High 11.5-15.0 [facility] Comment on above: Order Comment: Speci men Type: BLOOD SPECIMEN Performed By: #### 5 8410-2 ####[facility]ATORYCLIA [id number] [address] Hematocrit (Bld) [Volume fraction] 34.3 % Low 39.0-51.0 [facility] Comment on above: Order Comment: Speci men Type: BLOOD SPECIMEN Performed By: #### 5 8410-2 ####[facility]ORYCLIA [id number] [address] Hemoglobin (Bld) [Mass/Vol] 9.9 g/dL Low 13.0-17.0 [facility] Comment on above: Order Comment: Speci men Type: BLOOD SPECIMEN Performed By: #### 5 8410-2 ####[facility]ATORYCLIA [id number] [address] MCH (RBC) [Entitic mass] 27.3 pg Normal 26.0-34.0 [facility] Comment on above: Order Comment: Speci men Type: BLOOD SPECIMEN Performed By: #### 5 8410-2 ####[facility]ORYCLIA [id number] [address] MCHC (RBC) [Mass/Vol] 28.9 g/dL Low 30.5-36.0 [facility] Comment on above: Order Comment: Speci men Type: BLOOD SPECIMEN Performed By: #### 5 8410-2 ####[facility]ORYCLIA [id number] [address] MCV (RBC) [Entitic vol] 94.5 fL Normal 80.0-100.0 [facility] Comment on above: Order Comment: Speci men Type: BLOOD SPECIMEN Performed By: #### 5 8410-2 ####[facility]ATORYCLIA [id number] [address] Nucleated RBC (Bld) [#/Vol] 10*3/uL Normal <0.01 [facility] Comment on above: Order Comment: Speci men Type: BLOOD SPECIMEN Performed By: #### 5 8410-2 ####[facility]ORYCLIA [id number] [address] Platelet mean volume (Bld) [Entitic vol] 11.3 fL Normal 9.0-12.7 [facility] Comment on above: Order Comment: Speci men Type: BLOOD SPECIMEN Performed By: #### 5 8410-2 ####[facility]ORYCLIA [id number] [address] Platelets (Bld) [#/Vol] 269 10*3/uL Normal 150-400 [facility] Comment on above: Order Comment: Speci men Type: BLOOD SPECIMEN Performed By: #### 5 8410-2 ####[facility]ORYCLIA [id number] [address] RBC (Bld) [#/Vol] 3.63 10*6/uL Low 4.20-6.00 [facility] Comment on above: Order Comment: Speci men Type: BLOOD SPECIMEN Performed By: #### 5 8410-2 ####[facility]ORYCLIA [id number] [address] WBC (Bld) [#/Vol] 12.77 10*3/uL High 3.70-11.00 [facility] Comment on above: Order Comment: Speci men Type: BLOOD SPECIMEN Performed By: #### 5 8410-2 ####[facility]ORYCLIA [id number] [address] Gas and Carbon monoxide pane l (BldV)on 06-13-2021 Base excess Calc (BldV) [Moles/Vol] 5.7 mmol/L High 0-2 [facility] Comment on above: Order Comment: Speci men Type: VENOUS BLOOD SPECIMEN Performed By: #### 2 4344-4 ####[facility]ORYCLIA [id number] [address] Body temperature 99.5 [degF] Normal [facility] Comment on above: Order Comment: Speci men Type: VENOUS BLOOD SPECIMEN Performed By: #### 2 4344-4 ####[facility]ORYCLIA [id number] [address] CALCIUM IONIZED, PH CORRECTED 1.24 mmol/L Normal 1.08-1.30 [facility] Comment on above: Order Comment: Speci men Type: VENOUS BLOOD SPECIMEN Performed By: #### 2 4344-4 ####[facility]ORYCLIA [id number] [address] Calcium.ionized (BldV) [Mass/Vol] 1.23 mmol/L Normal 1.08-1.30 [facility] Comment on above: Order Comment: Speci men Type: VENOUS BLOOD SPECIMEN Performed By: #### 2 4344-4 ####[facility]ORYCLIA [id number] [address] Carboxyhemoglobin (BldV) [Mass fraction] 1.2 % Normal 0.0-2.0 [facility] Comment on above: Order Comment: Speci men Type: VENOUS BLOOD SPECIMEN Result Comment: Carb oxyhemoglobin Reference Range for Smokers: 2.0-8.0% Performed By: #### 2 4344-4 ####[facility]ORYCLIA [id number] [address] CO2 (BldV) [Partial pressure] 48 mm[Hg] Normal 42-55 [facility] Comment on above: Order Comment: Speci men Type: VENOUS BLOOD SPECIMEN Performed By: #### 2 4344-4 ####[facility]ORYCLIA [id number] [address] CO2 [Moles/Vol] 28.2 mmol/L Normal 25-29 [facility] Comment on above: Order Comment: Speci men Type: VENOUS BLOOD SPECIMEN Performed By: #### 2 4344-4 ####[facility]ORATORYCLIA [id number] [address] CO2 adjusted to patient's actual temperature (BldV) [Partial pressure] 49 mmHg Normal 42-55 [facility] Comment on above: Order Comment: Speci men Type: VENOUS BLOOD SPECIMEN Performed By: #### 2 4344-4 ####[facility]ORYCLIA [id number] [address] Glucose [Mass/Vol] 131 mg/dL High 60-105 [facility] Comment on above: Order Comment: Speci men Type: VENOUS BLOOD SPECIMEN Performed By: #### 2 4344-4 ####[facility]ORYCLIA [id number] [address] HCO3 (Bld) [Moles/Vol] 30.6 mmol/L High 24-28 [facility] Comment on above: Order Comment: Speci men Type: VENOUS BLOOD SPECIMEN Performed By: #### 2 4344-4 ####[facility]ORYCLIA [id number] [address] Hematocrit (Bld) [Volume fraction] 32.8 % Low 39.0-51.0 [facility] Comment on above: Order Comment: Speci men Type: VENOUS BLOOD SPECIMEN Performed By: #### 2 4344-4 ####[facility]ORYCLIA [id number] [address] Hemoglobin (Bld) [Mass/Vol] 10.6 g/dL Low 13.0-17.0 [facility] Comment on above: Order Comment: Speci men Type: VENOUS BLOOD SPECIMEN Performed By: #### 2 4344-4 ####[facility]ORYCLIA [id number] [address] LITERS 6 Liters/min Normal [facility] Comment on above: Order Comment: Speci men Type: VENOUS BLOOD SPECIMEN Performed By: #### 2 4344-4 ####[facility]ORYCLIA [id number] [place] [address] [place] Methemoglobin (Bld) [Mass fraction] 1.0 % Normal 0.0-1.5 [facility] Comment on above: Order Comment: Speci men Type: VENOUS BLOOD SPECIMEN Performed By: #### 2 4344-4 ####[facility]ORYCLIA [id number] [place], [place] [address] [place] [address] O2 THERAPY NC = Nasal Cannula Normal [facility] Comment on above: Order Comment: Speci men Type: VENOUS BLOOD SPECIMEN Performed By: #### 2 4344-4 ####[facility]ORYCLIA [id number] [place], [place] [address] [place] [address] Oxygen (BldV) [Partial pressure] 42 mm[Hg] Normal 35-45 [facility] Comment on above: Order Comment: Speci men Type: VENOUS BLOOD SPECIMEN Performed By: #### 2 4344-4 ####[facility]ORYCLIA [id number] [place], [place] [address] [place] [address] Oxygen adjusted to patient's actual temperature (BldV) [Partial pressure] 43.8 mmHg Normal 35-45 [facility] Comment on above: Order Comment: Speci men Type: VENOUS BLOOD SPECIMEN Performed By: #### 2 4344-4 ####[facility]ORYCLIA [id number] [place], [place] [address] [place] [address] OF [facility] Oxygen saturation in Blood 76.7 % Normal 60-85 [facility] Comment on above: Order Comment: Speci men Type: VENOUS BLOOD SPECIMEN Performed By: #### 2 4344-4 ####[facility]ORYCLIA [id number] [place], [place] [address] [place] [address] [place] Oxyhemoglobin (BldV) [Mass fraction] 75 % Normal 60-85 [facility] Comment on above: Order Comment: Speci men Type: VENOUS BLOOD SPECIMEN Performed By: #### 2 4344-4 ####[facility]ORYCLIA [id number] [place], [place] [address] [place] [address] pH (BldV) 7.42 [pH] Normal 7.32-7.42 [facility] Comment on above: Order Comment: Speci men Type: VENOUS BLOOD SPECIMEN Performed By: #### 2 4344-4 ####[facility]CLIA [id number] [address] pH adjusted to patient's actual temperature (BldV) 7.41 Normal 7.32-7.42 [facility] Comment on above: Order Comment: Speci men Type: VENOUS BLOOD SPECIMEN Performed By: #### 2 4344-4 ####[facility]CLIA [id number] [address] Potassium [Moles/Vol] 3.5 mmol/L Normal 3.5-5.0 [facility] Comment on above: Order Comment: Speci men Type: VENOUS BLOOD SPECIMEN Performed By: #### 2 4344-4 ####[facility]CLIA [id number] [address] Sodium [Moles/Vol] 157 mmol/L High 136-144 [facility] Comment on above: Order Comment: Speci men Type: VENOUS BLOOD SPECIMEN Performed By: #### 2 4344-4 ####[facility]ORYCLIA [id number] [address] OF [facility] Magnesium SerPl-mCncon 06-13 Magnesium [Mass/Vol] 3.0 mg/dL High 1.7-2.3 [facility] Comment on above: Order Comment: Speci men Type: BLOOD SPECIMEN Performed By: #### 2 4321-2, 46957-1, 2776-05 ####[facility]ORYCLIA [id number] [address] Magnesium [Mass/Vol] 2.2 mg/dL Normal 1.7-2.3 [facility] Comment on above: Order Comment: Speci men Type: BLOOD SPECIMEN Performed By: #### 2 4321-2, 2776-, ####[facility]ORYCLIA [id number] [place] [address] [place] Phosphate SerPl-mCncon 06-13 Phosphate [Mass/Vol] 2.2 mg/dL Low 2.7-4.8 [facility] Comment on above: Order Comment: Speci men Type: BLOOD SPECIMEN Performed By: #### 2 4321-2, , 2776-05 ####[facility]ORYCLIA [id number] [address] STATES OF [facility] Phosphate [Mass/Vol] 1.8 mg/dL Low 2.7-4.8 [facility] Comment on above: Order Comment: Speci men Type: BLOOD SPECIMEN Performed By: #### 2 4321-2, 2776-05, ####[facility]ORYCLIA [id number] [address] [place] XR CHEST 1V FRONTALon 2021 XR CHEST 1V FRONTAL Normal [facility] ALLIED HEALTHon 06-12-2021 ALLIED HEALTH Normal [facility] BRIEF OP NOTon 06-12-2021 BRIEF OP NOT Normal [facility] Bacteria Fld Culton 06-12-19 22 Bacteria identified Cx Nom (Body fld) CULTURE, BODY FLD: No growth 5 days GRAM STAIN: No organisms seen Moderate Polymorphonuclear leukocytes Normal [facility] Comment on above: Performed By: #### 6 11-4 ####[facility]ORYCLIA [id number] [place] [address] [place] Basic metabolic 2000 panelon 06-12-2021 Anion gap [Moles/Vol] 6 mmol/L Low 9-18 [facility] Comment on above: Order Comment: Speci men Type: BLOOD SPECIMEN Performed By: #### 2 777-1, 37323-8, ####[facility]ORYCLIA [id number] [place] [address] [place] Calcium [Mass/Vol] 8.7 mg/dL Normal 8.5-10.2 [facility] Comment on above: Order Comment: Speci men Type: BLOOD SPECIMEN Performed By: #### 2 777-1, 48486-8, ####[facility]ORYCLIA [id number] [address] STATES OF [facility] Chloride [Moles/Vol] 118 mmol/L High 97-105 [facility] Comment on above: Order Comment: Speci men Type: BLOOD SPECIMEN Performed By: #### 2 777-1, 94577-7, ####[facility]ORYCLIA [id number] [address] [place] CO2 [Moles/Vol] 28 mmol/L Normal 22-30 [facility] Comment on above: Order Comment: Speci men Type: BLOOD SPECIMEN Performed By: #### 2 777-1, , ####[facility]ORYCLIA [id number] [address] [place] [facility] Creatinine [Mass/Vol] 0.77 mg/dL Normal 0.73-1.22 [facility] Comment on above: Order Comment: Speci men Type: BLOOD SPECIMEN Performed By: #### 2 777-1, , ####[facility]ORYCLIA [id number] [address] [place] GFR/1.73 sq M.predicted MDRD (S/P/Bld) [Vol rate/Area] mL/min/{1.73_m2} Normal [facility] Comment on above: [...] GFR. Performed By: #### 2 777-1, , ####[facility]ORYCLIA [id number] [place] [address] [place] Glucose [Mass/Vol] 116 mg/dL High 74-99 [facility] Comment on above: Order Comment: Speci men Type: BLOOD SPECIMEN Result Comment: The [place] [employer] (ADA) provides guidance for cutoff [...] Standards of Medical Care in Diabetes 2016, [place] [employer]. Diabetes Care. 2016.39(Suppl 1). Performed By: #### 2 777-1, , ####[facility]ORYCLIA [id number] [place] [address] [place] Potassium [Moles/Vol] 4.0 mmol/L Normal 3.7-5.1 [facility] Comment on above: Order Comment: Speci men Type: BLOOD SPECIMEN Performed By: #### 2 777-1, , ####[facility]ATORYCLIA [id number] [place] [id number] [place] Sodium [Moles/Vol] 152 mmol/L High 136-144 [facility] Comment on above: Order Comment: Speci men Type: BLOOD SPECIMEN Performed By: #### 2 777-1, , ####[facility]ORYCLIA [id number] [place] [address] [place] Urea nitrogen [Mass/Vol] 34 mg/dL High 9-24 [facility] Comment on above: Order Comment: Speci men Type: BLOOD SPECIMEN Performed By: #### 2 777-1, 26533-8, 87797-7 ####[facility]ORYCLIA [id number] [address] CBC panel Auto (Bld)on 06-12 Erythrocyte distribution width (RBC) [Ratio] 16.1 % High 11.5-15.0 [facility] Comment on above: Order Comment: Speci men Type: BLOOD SPECIMEN Performed By: #### 5 8410-2 ####[facility]ORYCLIA [id number] [address] Hematocrit (Bld) [Volume fraction] 32.8 % Low 39.0-51.0 [facility] Comment on above: Order Comment: Speci men Type: BLOOD SPECIMEN Performed By: #### 5 8410-2 ####[facility]ORYCLIA [id number] [address] Hemoglobin (Bld) [Mass/Vol] 9.9 g/dL Low 13.0-17.0 [facility] Comment on above: Order Comment: Speci men Type: BLOOD SPECIMEN Performed By: #### 5 8410-2 ####[facility]ORYCLIA [id number] [address] MCH (RBC) [Entitic mass] 28.4 pg Normal 26.0-34.0 [facility] Comment on above: Order Comment: Speci men Type: BLOOD SPECIMEN Performed By: #### 5 8410-2 ####[facility]ATORYCLIA [id number] [address] MCHC (RBC) [Mass/Vol] 30.2 g/dL Low 30.5-36.0 [facility] Comment on above: Order Comment: Speci men Type: BLOOD SPECIMEN Performed By: #### 5 8410-2 ####[facility]ORYCLIA [id number] [address] MCV (RBC) [Entitic vol] 94.3 fL Normal 80.0-100.0 [facility] Comment on above: Order Comment: Speci men Type: BLOOD SPECIMEN Performed By: #### 5 8410-2 ####[facility]ORYCLIA [id number] [address] Nucleated RBC (Bld) [#/Vol] 10*3/uL Normal <0.01 [facility] Comment on above: Order Comment: Speci men Type: BLOOD SPECIMEN Performed By: #### 5 8410-2 ####[facility]ORYCLIA [id number] [address] Platelet mean volume (Bld) [Entitic vol] 11.2 fL Normal 9.0-12.7 [facility] Comment on above: Order Comment: Speci men Type: BLOOD SPECIMEN Performed By: #### 5 8410-2 ####[facility]ATORYCL[facility] [id number] [address] Platelets (Bld) [#/Vol] 218 10*3/uL Normal 150-400 [facility] Comment on above: Order Comment: Speci men Type: BLOOD SPECIMEN Performed By: #### 5 8410-2 ####[facility]ORY[facility] [id number] [address] RBC (Bld) [#/Vol] 3.48 10*6/uL Low 4.20-6.00 [facility] Comment on above: Order Comment: Speci men Type: BLOOD SPECIMEN Performed By: #### 5 8410-2 ####[facility]ORYCL[facility] [id number] [address] WBC (Bld) [#/Vol] 13.33 10*3/uL High 3.70-11.00 [facility] Comment on above: Order Comment: Speci men Type: BLOOD SPECIMEN Performed By: #### 5 8410-2 ####[facility]ATORYCLIA [id number] [address] CONSULT PROGon 06-12-2021 CONSULT PROG Normal [facility] CT DRN [address] PERIT/RETROP [place] BIon 06-12-[address] PERIT/RETROP FL BI Normal [facility] HISTORY PHYSICALon HISTORY PHYSICAL Normal [facility] Magnesium SerPl-mCncon 06-12 Magnesium [Mass/Vol] 2.7 mg/dL High 1.7-2.3 [facility] Comment on above: Order Comment: Speci men Type: BLOOD SPECIMEN Performed By: #### 2 777-1, 28735-7, 29987-0 ####[facility]ATORYCLIA [id number] [address] PT panel Coag (PPP)on 2021 INR Coag (PPP) [Relative time] 1.1 {INR} Normal 0.9-1.3 [facility] Comment on above: Order Comment: Speci men Type: BLOOD SPECIMEN Result Comment: Yris min K Antagonist (VKA) Therapeutic Range: INR 2 to 3 (Target INR of 2.5)Note: For patients treated with VKA drugs, such as warfarin, the [place] [employer] 2012 Guideline recommends [...] 70: 252-289 Performed By: #### 3 4528-0 ####[facility]ATORYCLIA [id number] [address] [place] PT Coag (PPP) [Time] 11.9 s Normal 9.7-13.0 [facility] Comment on above: Order Comment: Speci men Type: BLOOD SPECIMEN Performed By: #### 3 4528-0 ####[facility]ATORYCLIA [id number] [address] Phosphate SerPl-mCncon 06-12 Phosphate [Mass/Vol] 2.2 mg/dL Low 2.7-4.8 [facility] Comment on above: Order Comment: Speci men Type: BLOOD SPECIMEN Performed By: #### 2 777-1, 54669-3, 54094-5 ####[facility]ATORYCLIA [id number] [address] XR ABDOMEN 1V SUPINEon 06-12 XR ABDOMEN 1V SUPINE Normal [facility] ALLIED HEALTHon 06-11-2021 ALLIED HEALTH Normal [facility] Bacteria Bld Culton 06-11-19 22 Bacteria identified Cx Nom (Bld) CULTURE, BLOOD: No growth 5 days Normal [facility] Comment on above: Performed By: #### 6 00-7 ####[facility]ATORYCLIA [id number] [address] Bacteria identified Cx Nom (Bld) CULTURE, BLOOD: No growth 5 days Normal [facility] Comment on above: Performed By: #### 6 00-7 ####[facility]ATORYCLIA [id number] [address] Bacteria Ur Culton 2 Bacteria identified Cx Nom (U) CULTURE, URINE: No growth (<1,000 CFU/ml) Normal [facility] Comment on above: Performed By: #### 6 30-4 ####[facility]ATORYCLIA [id number] [address] Basic metabolic 2000 panelon 06-11-2021 Anion gap [Moles/Vol] 9 mmol/L Normal 9-18 [facility] Comment on above: Order Comment: Speci men Type: BLOOD SPECIMEN Performed By: #### 1 9123-9, 2776-05, 90143-7 ####[facility]ATORYCLIA [id number] [address] STATES OF [facility] Calcium [Mass/Vol] 8.5 mg/dL Normal 8.5-10.2 [facility] Comment on above: Order Comment: Speci men Type: BLOOD SPECIMEN Performed By: #### 1 9123-9, 2776-05, 19834-7 ####[facility]ATORYCLIA [id number] [address] Chloride [Moles/Vol] 118 mmol/L High 97-105 [facility] Comment on above: Order Comment: Speci men Type: BLOOD SPECIMEN Performed By: #### 1 9123-9, 2776-05, ####[facility]ATORYCLIA [id number] [address] OF [facility] CO2 [Moles/Vol] 27 mmol/L Normal 22-30 [facility] Comment on above: Order Comment: Speci men Type: BLOOD SPECIMEN Performed By: #### 1 9123-9, 2776-05, ####[facility]ATORYCLIA [id number] [address] [place] [facility] Creatinine [Mass/Vol] 0.75 mg/dL Normal 0.73-1.22 [facility] Comment on above: Order Comment: Speci men Type: BLOOD SPECIMEN Performed By: #### 1 9123-9, 2776-05, ####[facility]ATORYCLIA [id number] [address] [place] GFR/1.73 sq M.predicted MDRD (S/P/Bld) [Vol rate/Area] mL/min/{1.73_m2} Normal [facility] Comment on above: [...] GFR. Performed By: #### 1 9123-9, 2777-, 10630-9 ####[facility]ATORYCLIA [id number] [place] [address] [place] Glucose [Mass/Vol] 142 mg/dL High 74-99 [facility] Comment on above: Order Comment: Speci men Type: BLOOD SPECIMEN Result Comment: The [place] [employer] (ADA) provides guidance for cutoff [...] Standards of Medical Care in Diabetes 2016, [place] [employer]. Diabetes Care. 2016.39(Suppl 1). Performed By: #### 1 9123-9, 27711-04, 88638-4 ####[facility]ATORYCLIA [id number] [place] [address] [place] Potassium [Moles/Vol] 3.6 mmol/L Low 3.7-5.1 [facility] Comment on above: Order Comment: Speci men Type: BLOOD SPECIMEN Performed By: #### 1 9123-9, 27711-04, 08437-0 ####[facility]ATORYCLIA [id number] [place] [address] [place] Sodium [Moles/Vol] 154 mmol/L High 136-144 [facility] Comment on above: Order Comment: Speci men Type: BLOOD SPECIMEN Performed By: #### 1 9123-9, 27771, 74613-6 ####[facility]ATORYCLIA [id number] [address] STATES [facility] Urea nitrogen [Mass/Vol] 31 mg/dL High 9-24 [facility] Comment on above: Order Comment: Speci men Type: BLOOD SPECIMEN Performed By: #### 1 9123-9, 2777-1, 93795-2 ####[facility]ATORYCLIA [id number] [address] C diff Tox gens Stl Ql MEGAN+p robeon 06-11-2021 C. difficile toxin genes MEGAN+probe Ql (Stl) Negative Normal Negative for C. difficile toxin by PCR [facility] Comment on above: Order Comment: Speci men Type: STOOL SPECIMEN Performed By: #### 5 4067-4 ####[facility]ATORYCLIA [id number] [address] STATES [facility] CBC W Auto Differential pane l (Bld)on 06-11-2021 Basophils (Bld) [#/Vol] 0.03 10*3/uL Normal <0.11 [facility] Comment on above: Order Comment: Speci men Type: BLOOD SPECIMEN Performed By: #### 5 7021-8 ####[facility]ATORYCLIA [id number] [address] Basophils/100 WBC (Bld) 0.2 % Normal [facility] Comment on above: Order Comment: Speci men Type: BLOOD SPECIMEN Performed By: #### 5 7021-8 ####[facility]ATORYCLIA [id number] [address] Differential cell count method Nom (Bld) Auto Normal [facility] Comment on above: Order Comment: Speci men Type: BLOOD SPECIMEN Performed By: #### 5 7021-8 ####[facility]ATORYCLIA [id number] [address] [place] [facility] Eosinophils (Bld) [#/Vol] 0.19 10*3/uL Normal <0.46 [facility] Comment on above: Order Comment: Speci men Type: BLOOD SPECIMEN Performed By: #### 5 7021-8 ####[facility]ORYCLIA [id number] [address] Eosinophils/100 WBC (Bld) 1.5 % Normal [facility] Comment on above: Order Comment: Speci men Type: BLOOD SPECIMEN Performed By: #### 5 7021-8 ####[facility]ORYCLIA [id number] [address] Erythrocyte distribution width (RBC) [Ratio] 16.3 % High 11.5-15.0 [facility] Comment on above: Order Comment: Speci men Type: BLOOD SPECIMEN Performed By: #### 5 7021-8 ####[facility]ORATORYCLIA [id number] [address] Hematocrit (Bld) [Volume fraction] 32.1 % Low 39.0-51.0 [facility] Comment on above: Order Comment: Speci men Type: BLOOD SPECIMEN Performed By: #### 5 7021-8 ####[facility]ATORYCLIA [id number] [address] Hemoglobin (Bld) [Mass/Vol] 9.3 g/dL Low 13.0-17.0 [facility] Comment on above: Order Comment: Speci men Type: BLOOD SPECIMEN Performed By: #### 5 7021-8 ####[facility]ORYCLIA [id number] [address] IMMATURE GRAN % 0.6 % Normal [facility] Comment on above: Order Comment: Speci men Type: BLOOD SPECIMEN Performed By: #### 5 7021-8 ####[facility]ORYCLIA [id number] [address] IMMATURE GRAN ABS 0.08 k/uL Normal <0.10 [facility] Comment on above: Order Comment: Speci men Type: BLOOD SPECIMEN Performed By: #### 5 7021-8 ####[facility]ATORYCLIA [id number] [address] Lymphocytes (Bld) [#/Vol] 1.65 10*3/uL Normal 1.00-4.00 [facility] Comment on above: Order Comment: Speci men Type: BLOOD SPECIMEN Performed By: #### 5 7021-8 ####[facility]ATORYCLIA [id number] [address] Lymphocytes/100 WBC (Bld) 12.8 % Normal [facility] Comment on above: Order Comment: Speci men Type: BLOOD SPECIMEN Performed By: #### 5 7021-8 ####[facility]ATORYCLIA [id number] [address] MCH (RBC) [Entitic mass] 27.2 pg Normal 26.0-34.0 [facility] Comment on above: Order Comment: Speci men Type: BLOOD SPECIMEN Performed By: #### 5 7021-8 ####[facility]ATORYCLIA [id number] [address] MCHC (RBC) [Mass/Vol] 29.0 g/dL Low 30.5-36.0 [facility] Comment on above: Order Comment: Speci men Type: BLOOD SPECIMEN Performed By: #### 5 7021-8 ####[facility]ATORYCLIA [id number] [address] MCV (RBC) [Entitic vol] 93.9 fL Normal 80.0-100.0 [facility] Comment on above: Order Comment: Speci men Type: BLOOD SPECIMEN Performed By: #### 5 7021-8 ####[facility]ATORYCLIA [id number] [address] Monocytes (Bld) [#/Vol] 0.68 10*3/uL Normal <0.87 [facility] Comment on above: Order Comment: Speci men Type: BLOOD SPECIMEN Performed By: #### 5 7021-8 ####[facility]ORATORYCLIA [id number] [place], [place] [id number] [place] [address] Monocytes/100 WBC (Bld) 5.3 % Normal [facility] Comment on above: Order Comment: Speci men Type: BLOOD SPECIMEN Performed By: #### 5 7021-8 ####[facility]ORYCLIA [id number] [address] Neutrophils (Bld) [#/Vol] 10.22 10*3/uL High 1.45-7.50 [facility] Comment on above: Order Comment: Speci men Type: BLOOD SPECIMEN Performed By: #### 5 7021-8 ####[facility]ORYCLIA [id number] [address] Neutrophils/100 WBC (Bld) 79.6 % Normal [facility] Comment on above: Order Comment: Speci men Type: BLOOD SPECIMEN Performed By: #### 5 7021-8 ####[facility]ATORYCLIA [id number] [address] Nucleated RBC (Bld) [#/Vol] 10*3/uL Normal <0.01 [facility] Comment on above: Order Comment: Speci men Type: BLOOD SPECIMEN Performed By: #### 5 7021-8 ####[facility]ORYCLIA [id number] [address] Nucleated RBC/100 WBC (Bld) [Ratio] 0.0 /100 WBC Normal 0.0 [facility] Comment on above: Order Comment: Speci men Type: BLOOD SPECIMEN Performed By: #### 5 7021-8 ####[facility]ORYCLIA [id number] [address] Platelet mean volume (Bld) [Entitic vol] 11.1 fL Normal 9.0-12.7 [facility] Comment on above: Order Comment: Speci men Type: BLOOD SPECIMEN Performed By: #### 5 7021-8 ####[facility]ATORYCLIA [id number] [address] Platelets (Bld) [#/Vol] 188 10*3/uL Normal 150-400 [facility] Comment on above: Order Comment: Speci men Type: BLOOD SPECIMEN Performed By: #### 5 7021-8 ####[facility]ATORYCLIA [id number] [address] RBC (Bld) [#/Vol] 3.42 10*6/uL Low 4.20-6.00 [facility] Comment on above: Order Comment: Speci men Type: BLOOD SPECIMEN Performed By: #### 5 7021-8 ####[facility]ORYCLIA [id number] [address] WBC (Bld) [#/Vol] 12.85 10*3/uL High 3.70-11.00 [facility] Comment on above: Order Comment: Speci men Type: BLOOD SPECIMEN Performed By: #### 5 7021-8 ####[facility]ATORYCLIA [id number] [address] CBC panel Auto (Bld)on 06-11 Erythrocyte distribution width (RBC) [Ratio] 16.2 % High 11.5-15.0 [facility] Comment on above: Order Comment: Speci men Type: BLOOD SPECIMEN Performed By: #### 5 8410-2 ####[facility]ORYCLIA [id number] [address] Hematocrit (Bld) [Volume fraction] 34.5 % Low 39.0-51.0 [facility] Comment on above: Order Comment: Speci men Type: BLOOD SPECIMEN Performed By: #### 5 8410-2 ####[facility]ORYCLIA [id number] [address] Hemoglobin (Bld) [Mass/Vol] 10.3 g/dL Low 13.0-17.0 [facility] Comment on above: Order Comment: Speci men Type: BLOOD SPECIMEN Performed By: #### 5 8410-2 ####[facility]ORYCLIA [id number] [address] MCH (RBC) [Entitic mass] 28.1 pg Normal 26.0-34.0 [facility] Comment on above: Order Comment: Speci men Type: BLOOD SPECIMEN Performed By: #### 5 8410-2 ####[facility]ATORYCLIA [id number] [address] MCHC (RBC) [Mass/Vol] 29.9 g/dL Low 30.5-36.0 [facility] Comment on above: Order Comment: Speci men Type: BLOOD SPECIMEN Performed By: #### 5 8410-2 ####[facility]ATORYCLIA [id number] [address] MCV (RBC) [Entitic vol] 94.3 fL Normal 80.0-100.0 [facility] Comment on above: Order Comment: Speci men Type: BLOOD SPECIMEN Performed By: #### 5 8410-2 ####[facility]ATORYCLIA [id number] [address] Nucleated RBC (Bld) [#/Vol] 10*3/uL Normal <0.01 [facility] Comment on above: Order Comment: Speci men Type: BLOOD SPECIMEN Performed By: #### 5 8410-2 ####[facility]ORYCLIA [id number] [address] Platelet mean volume (Bld) [Entitic vol] 10.9 fL Normal 9.0-12.7 [facility] Comment on above: Order Comment: Speci men Type: BLOOD SPECIMEN Performed By: #### 5 8410-2 ####[facility]ATORYCLIA [id number] [address] Platelets (Bld) [#/Vol] 210 10*3/uL Normal 150-400 [facility] Comment on above: Order Comment: Speci men Type: BLOOD SPECIMEN Performed By: #### 5 8410-2 ####[facility]ATORYCLIA [id number] [place], [place] [address] [place] [place] [address] OF [facility] RBC (Bld) [#/Vol] 3.66 10*6/uL Low 4.20-6.00 [facility] Comment on above: Order Comment: Speci men Type: BLOOD SPECIMEN Performed By: #### 5 8410-2 ####[facility]ATORYCLIA [id number] [address] WBC (Bld) [#/Vol] 13.03 10*3/uL High 3.70-11.00 [facility] Comment on above: Order Comment: Speci men Type: BLOOD SPECIMEN Performed By: #### 5 8410-2 ####[facility]ATORYCLIA [id number] [address] CONSULT PROGon 06-11-2021 CONSULT PROG Normal [facility] CONSULT PROG Normal [facility] CONSULT PROG Normal [facility] CT ABD/PEL W IVCONon 022 CT ABD/PEL W IVCON Invalid Interpretation Code [facility] Magnesium SerPl-mCncon 06-11 Magnesium [Mass/Vol] 2.7 mg/dL High 1.7-2.3 [facility] Comment on above: Order Comment: Speci men Type: BLOOD SPECIMEN Performed By: #### 1 9123-9, 2777-1, 78063-5 ####[facility]ATORYCLIA [id number] [address] Phosphate SerPl-mCncon 06-11 Phosphate [Mass/Vol] 2.5 mg/dL Low 2.7-4.8 [facility] Comment on above: Order Comment: Speci men Type: BLOOD SPECIMEN Performed By: #### 1 9123-9, 2777-1, 60781-9 ####[facility]ATORYCLIA [id number] [address] OF [facility] Basic metabolic 2000 panelon 06-10-2021 Anion gap [Moles/Vol] 7 mmol/L Low 9-18 [facility] Comment on above: Order Comment: Speci men Type: BLOOD SPECIMEN Performed By: #### 2 777-1, 39105-0, , HFP ####[facility]ORATORYCLIA [id number] [address] STATES [place] [facility] Calcium [Mass/Vol] 8.5 mg/dL Normal 8.5-10.2 [facility] Comment on above: Order Comment: Speci men Type: BLOOD SPECIMEN Performed By: #### 2 777-1, 19974-2, , HFP ####[facility]ATORYCLIA [id number] [address] [place] Chloride [Moles/Vol] 118 mmol/L High 97-105 [facility] Comment on above: Order Comment: Speci men Type: BLOOD SPECIMEN Performed By: #### 2 777-1, 77444-0, , HFP ####[facility]ATORYCLIA [id number] [address] [place] CO2 [Moles/Vol] 26 mmol/L Normal 22-30 [facility] Comment on above: Order Comment: Speci men Type: BLOOD SPECIMEN Performed By: #### 2 777-1, 48379-4, , HFP ####[facility]ATORYCLIA [id number] [address] [place] Creatinine [Mass/Vol] 0.70 mg/dL Low 0.73-1.22 [facility] Comment on above: Order Comment: Speci men Type: BLOOD SPECIMEN Performed By: #### 2 777-1, 87468-8, , HFP ####[facility]ATORYCLIA [id number] [place] [address] [place] GFR/1.73 sq M.predicted MDRD (S/P/Bld) [Vol rate/Area] mL/min/{1.73_m2} Normal [facility] Comment on above: [...] actual GFR. Performed By: #### 2 777-1, 09881-6, , [facility] ####[facility]CLIA [id number] [place] [address] [place] Glucose [Mass/Vol] 135 mg/dL High 74-99 [facility] Comment on above: Order Comment: Speci men Type: BLOOD SPECIMEN Result Comment: The [place] [employer] (ADA) provides guidance for cutoff [...] Standards of Medical Care in Diabetes 2016, [place] [employer]. Diabetes Care. 2016.39(Suppl 1). Performed By: #### 2 777-1, 72491-9, , [facility] ####[facility]ATORYCLIA [id number] [place] [address] [place] Potassium [Moles/Vol] 3.9 mmol/L Normal 3.7-5.1 [facility] Comment on above: Order Comment: Speci men Type: BLOOD SPECIMEN Performed By: #### 2 777-1, 22660-9, 43167-3, [facility] ####[facility]ATORYCLIA [id number] [place], [place] [address] [place] [address] Sodium [Moles/Vol] 151 mmol/L High 136-144 [facility] Comment on above: Order Comment: Speci men Type: BLOOD SPECIMEN Performed By: #### 2 777-1, 41776-5, , [facility] ####[facility]ATORYCLIA [id number] [address] Urea nitrogen [Mass/Vol] 27 mg/dL High 9-24 [facility] Comment on above: Order Comment: Speci men Type: BLOOD SPECIMEN Performed By: #### 2 777-1, 45917-1, , [facility] ####[facility]ATORYCLIA [id number] [address] CASE MANAGEMon 06-10-2021 CASE MANAGEM Normal [facility] CBC panel Auto (Bld)on 06-10 Erythrocyte distribution width (RBC) [Ratio] 16.2 % High 11.5-15.0 [facility] Comment on above: Order Comment: Speci men Type: BLOOD SPECIMEN Performed By: #### 5 8410-2 ####[facility]ATORYCLIA [id number] [address] Hematocrit (Bld) [Volume fraction] 34.8 % Low 39.0-51.0 [facility] Comment on above: Order Comment: Speci men Type: BLOOD SPECIMEN Performed By: #### 5 8410-2 ####[facility]ATORYCLIA [id number] [address] Hemoglobin (Bld) [Mass/Vol] 10.2 g/dL Low 13.0-17.0 [facility] Comment on above: Order Comment: Speci men Type: BLOOD SPECIMEN Performed By: #### 5 8410-2 ####[facility]ATORYCLIA [id number] [address] MCH (RBC) [Entitic mass] 27.1 pg Normal 26.0-34.0 [facility] Comment on above: Order Comment: Speci men Type: BLOOD SPECIMEN Performed By: #### 5 8410-2 ####[facility]ORYCLIA [id number] [address] MCHC (RBC) [Mass/Vol] 29.3 g/dL Low 30.5-36.0 [facility] Comment on above: Order Comment: Speci men Type: BLOOD SPECIMEN Performed By: #### 5 8410-2 ####[facility]ATORYCLIA [id number] [address] MCV (RBC) [Entitic vol] 92.6 fL Normal 80.0-100.0 [facility] Comment on above: Order Comment: Speci men Type: BLOOD SPECIMEN Performed By: #### 5 8410-2 ####[facility]ORYCLIA [id number] [address] Nucleated RBC (Bld) [#/Vol] 10*3/uL Normal <0.01 [facility] Comment on above: Order Comment: Speci men Type: BLOOD SPECIMEN Performed By: #### 5 8410-2 ####[facility]ORYCLIA [id number] [address] Platelet mean volume (Bld) [Entitic vol] 10.4 fL Normal 9.0-12.7 [facility] Comment on above: Order Comment: Speci men Type: BLOOD SPECIMEN Performed By: #### 5 8410-2 ####[facility]ATORYCLIA [id number] [address] Platelets (Bld) [#/Vol] 206 10*3/uL Normal 150-400 [facility] Comment on above: Order Comment: Speci men Type: BLOOD SPECIMEN Performed By: #### 5 8410-2 ####[facility]ATORYCLIA [id number] [address] RBC (Bld) [#/Vol] 3.76 10*6/uL Low 4.20-6.00 [facility] Comment on above: Order Comment: Speci men Type: BLOOD SPECIMEN Performed By: #### 5 8410-2 ####[facility]ATORYCLIA [id number] [address] OF [facility] WBC (Bld) [#/Vol] 11.36 10*3/uL High 3.70-11.00 [facility] Comment on above: Order Comment: Speci men Type: BLOOD SPECIMEN Performed By: #### 5 8410-2 ####[facility]ATORYCLIA [id number] [address] HEPATIC FUNCTION PNLon 06-10 Albumin [Mass/Vol] 3.1 g/dL Low 3.9-4.9 [facility] Comment on above: Order Comment: Speci men Type: BLOOD SPECIMEN Performed By: #### 2 777-1, 42182-4, , HFP ####[facility]ATORYCLIA [id number] [address] ALP [Catalytic activity/Vol] 73 U/L Normal 38-113 [facility] Comment on above: Order Comment: Speci men Type: BLOOD SPECIMEN Performed By: #### 2 777-1, 70663-1, , HFP ####[facility]ORYCLIA [id number] [address] OF [facility] ALT With P-5'-P [Catalytic activity/Vol] 64 U/L High 10-54 [facility] Comment on above: Order Comment: Speci men Type: BLOOD SPECIMEN Performed By: #### 2 777-1, 15155-8, , HFP ####[facility]ORYCLIA [id number] [address] AST With P-5'-P [Catalytic activity/Vol] 44 U/L High 14-40 [facility] Comment on above: Order Comment: Speci men Type: BLOOD SPECIMEN Performed By: #### 2 777-1, 12346-1, , HFP ####[facility]ORYCLIA [id number] [address] Bilirubin [Mass/Vol] 0.5 mg/dL Normal 0.2-1.3 [facility] Comment on above: Order Comment: Speci men Type: BLOOD SPECIMEN Performed By: #### 2 777-1, 92310-3, 59397-4, [facility] ####[facility]ATORYCLIA [id number] [address] Bilirubin.conjugated [Mass/Vol] mg/dL Normal <0.2 [facility] Comment on above: Order Comment: Speci men Type: BLOOD SPECIMEN Performed By: #### 2 777-1, 27900-0, , [facility] ####[facility]ORYCLIA [id number] [address] Protein [Mass/Vol] 5.7 g/dL Low 6.3-8.0 [facility] Comment on above: Order Comment: Speci men Type: BLOOD SPECIMEN Performed By: #### 2 777-1, 31654-4, , [facility] ####[facility]ORYCL[facility] [id number] [address] LEVETIRACETAMon 06-10-2021 levETIRAcetam [Mass/Vol] 57.7 ug/mL High 12.0-46.0 [facility] Comment on above: [...] developed and its performance characteristics determined by [facility]'s [facility] [place] ( [facility]). It has not been cleared or approved by the FDA. [facility] is regulated under CLIA as qualified to perform high complexity testing. This test is used for clinical purposes. It should not be regarded as investigational or for research. Performed By: #### L EMILYET ####[facility] REFERENCE LABCLIA [id number] [id number] [address] [place] [place] Magnesium SerPl-mCncon 06-10 Magnesium [Mass/Vol] 2.7 mg/dL High 1.7-2.3 [facility] Comment on above: Order Comment: Speci men Type: BLOOD SPECIMEN Performed By: #### 2 777-1, 11593-2, , [facility] ####[facility]ATORYCLIA [id number] [place] [address] [place] Phosphate SerPl-mCncon 06-10 Phosphate [Mass/Vol] 1.8 mg/dL Low 2.7-4.8 [facility] Comment on above: Order Comment: Speci men Type: BLOOD SPECIMEN Performed By: #### 2 777-1, 03665-6, , [facility] ####[facility]ATORYCLIA [id number] [place] [address] [place] ALLIED HEALTHon 06-09-2021 ALLIED HEALTH Normal [facility] ALLIED HEALTH Normal [facility] ALLIED HEALTH Normal [facility] ALLIED HEALTH Normal [facility] Basic metabolic 2000 panelon 06-09-2021 Anion gap [Moles/Vol] 8 mmol/L Low 9-18 [facility] Comment on above: Order Comment: Speci men Type: BLOOD SPECIMEN Performed By: #### 2 4321-2, 2776-05, ####[facility]ATORYCLIA [id number] [place] [address] [place] Calcium [Mass/Vol] 8.3 mg/dL Low 8.5-10.2 [facility] Comment on above: Order Comment: Speci men Type: BLOOD SPECIMEN Performed By: #### 2 4321-2, 2776-, ####[facility]ORYCLIA [id number] [place], [place] [id number] [place] [address] [place] Chloride [Moles/Vol] 116 mmol/L High 97-105 [facility] Comment on above: Order Comment: Speci men Type: BLOOD SPECIMEN Performed By: #### 2 4321-2, 2776-05, ####[facility]ORYCLIA [id number] [place] [address] [facility] [place] CO2 [Moles/Vol] 27 mmol/L Normal 22-30 [facility] Comment on above: Order Comment: Speci men Type: BLOOD SPECIMEN Performed By: #### 2 4321-2, 2776-05, ####[facility]ATORYCLIA [id number] [address] Creatinine [Mass/Vol] 0.70 mg/dL Low 0.73-1.22 [facility] Comment on above: Order Comment: Speci men Type: BLOOD SPECIMEN Performed By: #### 2 4321-2, 2776-05, ####[facility]ORYCLIA [id number] [address] GFR/1.73 sq M.predicted MDRD (S/P/Bld) [Vol rate/Area] mL/min/{1.73_m2} Normal [facility] Comment on above: [...] GFR. Performed By: #### 2 4321-2, 2776-05, ####[facility]ATORYCLIA [id number] [address] Glucose [Mass/Vol] 123 mg/dL High 74-99 [facility] Comment on above: Order Comment: Speci men Type: BLOOD SPECIMEN Result Comment: The [place] Diabetes [employer] (ADA) provides guidance for cutoff [...] Standards of Medical Care in Diabetes 2016, [place] [employer]. Diabetes Care. 2016.39(Suppl 1). Performed By: #### 2 4321-2, 2776-05, ####[facility]ATORYCLIA [id number] [address] STATES OF [facility] Potassium [Moles/Vol] 3.5 mmol/L Low 3.7-5.1 [facility] Comment on above: Order Comment: Speci men Type: BLOOD SPECIMEN Performed By: #### 2 1-2, 2776-05, ####[facility]ATORYCLIA [id number] [address] [place] [facility] Sodium [Moles/Vol] 151 mmol/L High 136-144 [facility] Comment on above: Order Comment: Speci men Type: BLOOD SPECIMEN Performed By: #### 2 4321-2, 2776-05, ####[facility]ATORYCLIA [id number] [address] [place] Urea nitrogen [Mass/Vol] 39 mg/dL High 9-24 [facility] Comment on above: Order Comment: Speci men Type: BLOOD SPECIMEN Performed By: #### 2 4321-2, 2776-05, ####[facility]ATORYCLIA [id number] [address] CBC panel Auto (Bld)on 06-09 Erythrocyte distribution width (RBC) [Ratio] 16.2 % High 11.5-15.0 [facility] Comment on above: Order Comment: Speci men Type: BLOOD SPECIMEN Performed By: #### 5 8410-2 ####[facility]ORYCLIA [id number] [address] Hematocrit (Bld) [Volume fraction] 33.7 % Low 39.0-51.0 [facility] Comment on above: Order Comment: Speci men Type: BLOOD SPECIMEN Performed By: #### 5 8410-2 ####[facility]ATORYCLIA [id number] [address] Hemoglobin (Bld) [Mass/Vol] 10.2 g/dL Low 13.0-17.0 [facility] Comment on above: Order Comment: Speci men Type: BLOOD SPECIMEN Performed By: #### 5 8410-2 ####[facility]ORYCLIA [id number] [address] MCH (RBC) [Entitic mass] 27.4 pg Normal 26.0-34.0 [facility] Comment on above: Order Comment: Speci men Type: BLOOD SPECIMEN Performed By: #### 5 8410-2 ####[facility]ORYCLIA [id number] [address] MCHC (RBC) [Mass/Vol] 30.3 g/dL Low 30.5-36.0 [facility] Comment on above: Order Comment: Speci men Type: BLOOD SPECIMEN Performed By: #### 5 8410-2 ####[facility]ATORYCLIA [id number] [address] MCV (RBC) [Entitic vol] 90.6 fL Normal 80.0-100.0 [facility] Comment on above: Order Comment: Speci men Type: BLOOD SPECIMEN Performed By: #### 5 8410-2 ####[facility]ORYCLIA [id number] [address] Nucleated RBC (Bld) [#/Vol] 10*3/uL Normal <0.01 [facility] Comment on above: Order Comment: Speci men Type: BLOOD SPECIMEN Performed By: #### 5 8410-2 ####[facility]ORYCLIA [id number] [address] Platelet mean volume (Bld) [Entitic vol] 10.3 fL Normal 9.0-12.7 [facility] Comment on above: Order Comment: Speci men Type: BLOOD SPECIMEN Performed By: #### 5 8410-2 ####[facility]ATORYCLIA [id number] [address] Platelets (Bld) [#/Vol] 219 10*3/uL Normal 150-400 [facility] Comment on above: Order Comment: Speci men Type: BLOOD SPECIMEN Performed By: #### 5 8410-2 ####[facility]ORYCLIA [id number] [address] RBC (Bld) [#/Vol] 3.72 10*6/uL Low 4.20-6.00 [facility] Comment on above: Order Comment: Speci men Type: BLOOD SPECIMEN Performed By: #### 5 8410-2 ####[facility]ORYCLIA [id number] [address] WBC (Bld) [#/Vol] 13.02 10*3/uL High 3.70-11.00 [facility] Comment on above: Order Comment: Speci men Type: BLOOD SPECIMEN Performed By: #### 5 8410-2 ####[facility]ATORYCLIA [id number] [address] CONSULT PROGon 06-09-2021 CONSULT PROG Normal [facility] CONSULT PROG Normal [facility] CT BRAIN WO IVCONon 06-09-[address] BRAIN WO IVCON Normal [facility] Magnesium SerPl-mCncon 06-09 Magnesium [Mass/Vol] 2.8 mg/dL High 1.7-2.3 [facility] Comment on above: Order Comment: Speci men Type: BLOOD SPECIMEN Performed By: #### 2 4321-2, 2777-1, 37824-3 ####[facility]ATORYCLIA [id number] [address] OF [facility] NURSING PROGon 06-09-2021 NURSING PROG Normal [facility] NUTRITIONon 06-09-2021 NUTRITION Normal [facility] PT EDon 06-09-2021 PT ED Normal [facility] Phosphate [Mass/Vol] 2.2 mg/dL Low 2.7-4.8 [facility] Comment on above: Order Comment: Speci men Type: BLOOD SPECIMEN Performed By: #### 2 4321-2, 2777-1, ####[facility]ATORYCLIA [id number] [address] Vancomycin random [Mass/Vol] on 06-09-2021 Vancomycin [Mass/Vol] 18.9 ug/mL Normal 10.0-20.0 [facility] Comment on above: Order Comment: Speci men Type: BLOOD SPECIMEN Result Comment: Refe rence ranges and high/low indicator flags are provided as general guidelines only. The treating physician must determine appropriate target levels/dosing based on the specific clinical situation. Performed By: #### 4 091-5 ####[facility]ATORYCLIA [id number] [address] XR ABD 2V SUPINE W UPR/DECUB /CTLon 06-09-2021 XR ABD 2V SUPINE W UPR/DECUB/CTL Normal [facility] XR CHEST 1V FRONTALon 2021 XR CHEST 1V FRONTAL Normal [facility] XR NECK SOFT TISSUE 2V AP/LA Ton 06-09-2021 XR NECK SOFT TISSUE 2V AP/LAT Normal [facility] XR SKULL 2V AP/LATon 022 XR SKULL 2V AP/LAT Normal [facility] ALLIED HEALTHon 06-08-2021 ALLIED HEALTH Normal [facility] ANES POSTPROC EVALon 022 ANES POSTPROC EVAL Normal [facility] ANES PRE-OPon 06-08-2021 ANES PRE-OP Normal [facility] BRIEF OP NOTon 06-08-2021 BRIEF OP NOT Normal [facility] Bacteria Spec Anaerobe Culto n 06-08-2021 Bacteria identified Anaer cx Nom (Unsp spec) ORGANISM ID: 1 Rare Staphylococcus saccharolyticus Identification performed by [facility]-Main See scanned document for susceptibility report Normal [facility] Comment on above: Performed By: #### 6 462-6 635-3 ####[facility]ATORYCLIA [id number] [place] [address] [place] Bacteria Wnd Culton 06-08-19 22 Bacteria identified Cx Nom (Wound) CULTURE, INTRAOPERATIVE HARDWARE: No growth 5 days GRAM STAIN: Not performed on specimen type Normal [facility] Comment on above: Performed By: #### 6 462-6 635-3 ####[facility]ATORYCLIA [id number] [place] [address] [place] Basic metabolic 2000 panelon 06-08-2021 Anion gap [Moles/Vol] 9 mmol/L Normal 9-18 [facility] Comment on above: Order Comment: Speci men Type: BLOOD SPECIMEN Performed By: #### 2 4321-2, 7, ####[facility]ATORYCLIA [id number] [place] [address] [place] Calcium [Mass/Vol] 8.7 mg/dL Normal 8.5-10.2 [facility] Comment on above: Order Comment: Speci men Type: BLOOD SPECIMEN Performed By: #### 2 4321-2, 7-, ####[facility]ORYCLIA [id number] [place] [address] [place] Chloride [Moles/Vol] 113 mmol/L High 97-105 [facility] Comment on above: Order Comment: Speci men Type: BLOOD SPECIMEN Performed By: #### 2 4321-2, 2776-, ####[facility]ATORYCLIA [id number] [address] STATES [place] [facility] CO2 [Moles/Vol] 26 mmol/L Normal 22-30 [facility] Comment on above: Order Comment: Speci men Type: BLOOD SPECIMEN Performed By: #### 2 4321-2, 2776-05, ####[facility]ORYCLIA [id number] [address] [place] Creatinine [Mass/Vol] 0.68 mg/dL Low 0.73-1.22 [facility] Comment on above: Order Comment: Speci men Type: BLOOD SPECIMEN Performed By: #### 2 4321-2, 2776-05, ####[facility]ORYCLIA [id number] [address] [place] GFR/1.73 sq M.predicted MDRD (S/P/Bld) [Vol rate/Area] mL/min/{1.73_m2} Normal [facility] Comment on above: [...] GFR. Performed By: #### 2 4321-2, 2776-05, ####[facility]ATORYCLIA [id number] [place], [place] [address] [place] [address] [place] Glucose [Mass/Vol] 146 mg/dL High 74-99 [facility] Comment on above: Order Comment: Speci men Type: BLOOD SPECIMEN Result Comment: The [place] Diabetes [employer] (ADA) provides guidance for cutoff [...] Standards of Medical Care in Diabetes 2016, [place] [employer]. Diabetes Care. 2016.39(Suppl 1). Performed By: #### 2 4321-2, 2776-05, ####[facility]ATORYCLIA [id number] [place] [address] [place] Potassium [Moles/Vol] 3.6 mmol/L Low 3.7-5.1 [facility] Comment on above: Order Comment: Speci men Type: BLOOD SPECIMEN Performed By: #### 2 4321-2, 2776-05, ####[facility]ORYCLIA [id number] [address] [place] [facility] Sodium [Moles/Vol] 148 mmol/L High 136-144 [facility] Comment on above: Order Comment: Speci men Type: BLOOD SPECIMEN Performed By: #### 2 4321-2, 2776-05, ####[facility]ORYCLIA [id number] [place] [address] [place] Urea nitrogen [Mass/Vol] 36 mg/dL High 9-24 [facility] Comment on above: Order Comment: Speci men Type: BLOOD SPECIMEN Performed By: #### 2 4321-2, 2776-05, ####[facility]ATORYCLIA [id number] [place], [place] [address] [place] [address] [place] CASE MANAGEMon 06-08-2021 CASE MANAGEM Normal [facility] CBC panel Auto (Bld)on 06-08 Erythrocyte distribution width (RBC) [Ratio] 16.0 % High 11.5-15.0 [facility] Comment on above: Order Comment: Speci men Type: BLOOD SPECIMEN Performed By: #### 5 8410-2 ####[facility]ATORYCLIA [id number] [address] Hematocrit (Bld) [Volume fraction] 38.4 % Low 39.0-51.0 [facility] Comment on above: Order Comment: Speci men Type: BLOOD SPECIMEN Performed By: #### 5 8410-2 ####[facility]ORYCLIA [id number] [address] Hemoglobin (Bld) [Mass/Vol] 12.1 g/dL Low 13.0-17.0 [facility] Comment on above: Order Comment: Speci men Type: BLOOD SPECIMEN Performed By: #### 5 8410-2 ####[facility]ATORYCLIA [id number] [address] MCH (RBC) [Entitic mass] 28.3 pg Normal 26.0-34.0 [facility] Comment on above: Order Comment: Speci men Type: BLOOD SPECIMEN Performed By: #### 5 8410-2 ####[facility]ATORYCLIA [id number] [address] MCHC (RBC) [Mass/Vol] 31.5 g/dL Normal 30.5-36.0 [facility] Comment on above: Order Comment: Speci men Type: BLOOD SPECIMEN Performed By: #### 5 8410-2 ####[facility]ATORYCLIA [id number] [address] MCV (RBC) [Entitic vol] 89.9 fL Normal 80.0-100.0 [facility] Comment on above: Order Comment: Speci men Type: BLOOD SPECIMEN Performed By: #### 5 8410-2 ####[facility]ATORYCLIA [id number] [address] Nucleated RBC (Bld) [#/Vol] 10*3/uL Normal <0.01 [facility] Comment on above: Order Comment: Speci men Type: BLOOD SPECIMEN Performed By: #### 5 8410-2 ####[facility]ATORYCLIA [id number] [address] Platelet mean volume (Bld) [Entitic vol] 10.3 fL Normal 9.0-12.7 [facility] Comment on above: Order Comment: Speci men Type: BLOOD SPECIMEN Performed By: #### 5 8410-2 ####[facility]ATORYCLIA [id number] [address] Platelets (Bld) [#/Vol] 236 10*3/uL Normal 150-400 [facility] Comment on above: Order Comment: Speci men Type: BLOOD SPECIMEN Performed By: #### 5 8410-2 ####[facility]ATORYCLIA [id number] [address] RBC (Bld) [#/Vol] 4.27 10*6/uL Normal 4.20-6.00 [facility] Comment on above: Order Comment: Speci men Type: BLOOD SPECIMEN Performed By: #### 5 8410-2 ####[facility]ATORYCLIA [id number] [address] WBC (Bld) [#/Vol] 11.06 10*3/uL High 3.70-11.00 [facility] Comment on above: Order Comment: Speci men Type: BLOOD SPECIMEN Performed By: #### 5 8410-2 ####[facility]ATORYCLIA [id number] [address] CONSULT PROGon 06-08-2021 CONSULT PROG Normal [facility] CT BRAIN WO IVCONon 06-08-19 CT BRAIN WO IVCON Normal [facility] Magnesium SerPl-mCncon 06-08 Magnesium [Mass/Vol] 2.8 mg/dL High 1.7-2.3 [facility] Comment on above: Order Comment: Speci men Type: BLOOD SPECIMEN Performed By: #### 2 4321-2, 2777-1, 97820-5 ####[facility]ATORYCLIA [id number] [address] Microorganism Spec Culton Microorganism identified Cx Nom (Unsp spec) CULTURE, FUNGAL: No Fungus isolated after 28 days FUNGAL SMEAR: No fungus seen [facility] Comment on above: Performed By: #### 1 1475-1 ####[facility]ATORYCLIA [id number] [address] NURSING PROGon 06-08-2021 NURSING PROG Normal [facility] OPERATIVE NOon 06-08-2021 OPERATIVE NO [facility] OPERATIVE NO [facility] PT panel Coag (PPP)on 2021 INR Coag (PPP) [Relative time] 1.1 {INR} Normal 0.9-1.3 [facility] Comment on above: Order Comment: Speci men Type: BLOOD SPECIMEN Result Comment: Yris min K Antagonist (VKA) Therapeutic Range: INR 2 to 3 (Target INR of 2.5)Note: For patients treated with VKA drugs, such as warfarin, the [place] [employer] 2012 Guideline recommends [...] al. Chest 2012, 141:7S-47SAlba RA, et al. [facility] 2017, 70: 252-289 Performed By: #### 3 4528-0, 70962-8 ####[facility]ATORYCLIA [id number] [place], [place] [address] [place] [address] PT Coag (PPP) [Time] 11.9 s Normal 9.7-13.0 [facility] Comment on above: Order Comment: Speci men Type: BLOOD SPECIMEN Performed By: #### 3 4528-0, 38644-2 ####[facility]ATORYCLIA [id number] [address] Phosphate SerPl-mCncon 06-08 Phosphate [Mass/Vol] 2.3 mg/dL Low 2.7-4.8 [facility] Comment on above: Order Comment: Speci men Type: BLOOD SPECIMEN Performed By: #### 2 4321-2, 2777-1, 86631-9 ####[facility]ORYCLIA [id number] [address] aPTT PPPon 06-08-2021 aPTT Coag (PPP) [Time] 24.2 s Normal 23.0-32.4 [facility] Comment on above: Order Comment: Speci men Type: BLOOD SPECIMEN Performed By: #### 3 4528-0, 14203-3 ####[facility]ORYCLIA [id number] [address] ALLIED HEALTHon 06-07-2021 ALLIED HEALTH Normal [facility] ALLIED HEALTH Normal [facility] ALLIED HEALTH Normal [facility] Bacteria CSF Culton 06-07-19 22 Bacteria identified Cx Nom (CSF) CULTURE, CSF: No growth 14 days GRAM STAIN: No organisms seen Rare Mononuclear cells Rare Polymorphonuclear leukocytes Gram stain performed on cytospun specimen. Normal [facility] Comment on above: Performed By: #### 6 06-4 ####[facility]ATORYCLIA [id number] [address] OF [place] Basic metabolic 2000 panelon 06-07-2021 Anion gap [Moles/Vol] 9 mmol/L Normal 9-18 [facility] Comment on above: Order Comment: Speci men Type: BLOOD SPECIMEN Performed By: #### 1 9123-9, 27711-04, ####[facility]ATORYCLIA [id number] [address] OF [facility] Calcium [Mass/Vol] 8.8 mg/dL Normal 8.5-10.2 [facility] Comment on above: Order Comment: Speci men Type: BLOOD SPECIMEN Performed By: #### 1 9123-9, 2776-05, 81736-0 ####[facility]ATORYCLIA [id number] [address] Chloride [Moles/Vol] 111 mmol/L High 97-105 [facility] Comment on above: Order Comment: Speci men Type: BLOOD SPECIMEN Performed By: #### 1 9123-9, 2776-05, ####[facility]ATORYCLIA [id number] [address] STATES [facility] CO2 [Moles/Vol] 27 mmol/L Normal 22-30 [facility] Comment on above: Order Comment: Speci men Type: BLOOD SPECIMEN Performed By: #### 1 9123-9, 2776-05, ####[facility]ATORYCLIA [id number] [address] STATES [facility] Creatinine [Mass/Vol] 0.66 mg/dL Low 0.73-1.22 [facility] Comment on above: Order Comment: Speci men Type: BLOOD SPECIMEN Performed By: #### 1 9123-9, 2777, ####[facility]ATORYCLIA [id number] [address] [place] GFR/1.73 sq M.predicted MDRD (S/P/Bld) [Vol rate/Area] mL/min/{1.73_m2} Normal [facility] Comment on above: [...] GFR. Performed By: #### 1 9123-9, 2777-, 88618-5 ####[facility]ORATORYCLIA [id number] [place] [address] [place] Glucose [Mass/Vol] 123 mg/dL High 74-99 [facility] Comment on above: Order Comment: Speci men Type: BLOOD SPECIMEN Result Comment: The [place] [employer] (ADA) provides guidance for cutoff [...] Standards of Medical Care in Diabetes 2016, [place] [employer]. Diabetes Care. 2016.39(Suppl 1). Performed By: #### 1 9123-9, 2777, 69246-6 ####[facility] [id number] [address] [place] Potassium [Moles/Vol] 3.6 mmol/L Low 3.7-5.1 [facility] Comment on above: Order Comment: Speci men Type: BLOOD SPECIMEN Performed By: #### 1 9123-9, 2777, 49544-5 ####[facility]ORATORYIA [id number] [place] [address] [place] Sodium [Moles/Vol] 147 mmol/L High 136-144 [facility] Comment on above: Order Comment: Speci men Type: BLOOD SPECIMEN Performed By: #### 1 9123-9, 2777-1, 27893-3 ####[facility]ATORYCLIA [id number] [address] Urea nitrogen [Mass/Vol] 30 mg/dL High 9- [facility] Comment on above: Order Comment: Speci men Type: BLOOD SPECIMEN Performed By: #### 1 9123-9, 2777-, 38834-6 ####[facility]ATORYCLIA [id number] [address] CBC W Auto Differential pane l (Bld)on 06-07-2021 Basophils (Bld) [#/Vol] 10*3/uL Normal <0.11 [facility] Comment on above: Order Comment: Speci men Type: BLOOD SPECIMEN Performed By: #### 5 7021-8 ####[facility]ATORYCLIA [id number] [address] Basophils/100 WBC (Bld) 0.2 % Normal [facility] Comment on above: Order Comment: Speci men Type: BLOOD SPECIMEN Performed By: #### 5 7021-8 ####[facility]ATORYCLIA [id number] [address] Differential cell count method Nom (Bld) Auto Normal [facility] Comment on above: Order Comment: Speci men Type: BLOOD SPECIMEN Performed By: #### 5 7021-8 ####[facility]ORYCLIA [id number] [address] Eosinophils (Bld) [#/Vol] 0.06 10*3/uL Normal <0.46 [facility] Comment on above: Order Comment: Speci men Type: BLOOD SPECIMEN Performed By: #### 5 7021-8 ####[facility]ATORYCLIA [id number] [address] Eosinophils/100 WBC (Bld) 0.6 % Normal [facility] Comment on above: Order Comment: Speci men Type: BLOOD SPECIMEN Performed By: #### 5 7021-8 ####[facility]ATORYCLIA [id number] [address] Erythrocyte distribution width (RBC) [Ratio] 15.8 % High 11.5-15.0 [facility] Comment on above: Order Comment: Speci men Type: BLOOD SPECIMEN Performed By: #### 5 7021-8 ####[facility]ATORYCLIA [id number] [address] Hematocrit (Bld) [Volume fraction] 40.4 % Normal 39.0-51.0 [facility] Comment on above: Order Comment: Speci men Type: BLOOD SPECIMEN Performed By: #### 5 7021-8 ####[facility]ATORYCLIA [id number] [address] Hemoglobin (Bld) [Mass/Vol] 12.4 g/dL Low 13.0-17.0 [facility] Comment on above: Order Comment: Speci men Type: BLOOD SPECIMEN Performed By: #### 5 7021-8 ####[facility]ATORYCLIA [id number] [address] IMMATURE GRAN % 0.7 % Normal [facility] Comment on above: Order Comment: Speci men Type: BLOOD SPECIMEN Performed By: #### 5 7021-8 ####[facility]ATORYCLIA [id number] [address] IMMATURE GRAN ABS 0.07 k/uL Normal <0.10 [facility] Comment on above: Order Comment: Speci men Type: BLOOD SPECIMEN Performed By: #### 5 7021-8 ####[facility]ORYCLIA [id number] [address] Lymphocytes (Bld) [#/Vol] 1.43 10*3/uL Normal 1.00-4.00 [facility] Comment on above: Order Comment: Speci men Type: BLOOD SPECIMEN Performed By: #### 5 7021-8 ####[facility]ATORYCLIA [id number] [address] Lymphocytes/100 WBC (Bld) 14.1 % Normal [facility] Comment on above: Order Comment: Speci men Type: BLOOD SPECIMEN Performed By: #### 5 7021-8 ####[facility]ATORYCLIA [id number] [address] MCH (RBC) [Entitic mass] 27.6 pg Normal 26.0-34.0 [facility] Comment on above: Order Comment: Speci men Type: BLOOD SPECIMEN Performed By: #### 5 7021-8 ####[facility]ORATORYCLIA [id number] [address] MCHC (RBC) [Mass/Vol] 30.7 g/dL Normal 30.5-36.0 [facility] Comment on above: Order Comment: Speci men Type: BLOOD SPECIMEN Performed By: #### 5 7021-8 ####[facility]ATORYCLIA [id number] [address] MCV (RBC) [Entitic vol] 89.8 fL Normal 80.0-100.0 [facility] Comment on above: Order Comment: Speci men Type: BLOOD SPECIMEN Performed By: #### 5 7021-8 ####[facility]ORATORYCLIA [id number] [address] Monocytes (Bld) [#/Vol] 0.82 10*3/uL Normal <0.87 [facility] Comment on above: Order Comment: Speci men Type: BLOOD SPECIMEN Performed By: #### 5 7021-8 ####[facility]ORATORYCLIA [id number] [address] Monocytes/100 WBC (Bld) 8.1 % Normal [facility] Comment on above: Order Comment: Speci men Type: BLOOD SPECIMEN Performed By: #### 5 7021-8 ####[facility]ATORYCLIA [id number] [address] Neutrophils (Bld) [#/Vol] 7.74 10*3/uL High 1.45-7.50 [facility] Comment on above: Order Comment: Speci men Type: BLOOD SPECIMEN Performed By: #### 5 7021-8 ####[facility]ORATORYCLIA [id number] [address] Neutrophils/100 WBC (Bld) 76.3 % Normal [facility] Comment on above: Order Comment: Speci men Type: BLOOD SPECIMEN Performed By: #### 5 7021-8 ####[facility]ATORYCLIA [id number] [address] Nucleated RBC (Bld) [#/Vol] 10*3/uL Normal <0.01 [facility] Comment on above: Order Comment: Speci men Type: BLOOD SPECIMEN Performed By: #### 5 7021-8 ####[facility]ATORYCLIA [id number] [address] Nucleated RBC/100 WBC (Bld) [Ratio] 0.0 /100 WBC Normal 0.0 [facility] Comment on above: Order Comment: Speci men Type: BLOOD SPECIMEN Performed By: #### 5 7021-8 ####[facility]ATORYCLIA [id number] [address] Platelet mean volume (Bld) [Entitic vol] 10.4 fL Normal 9.0-12.7 [facility] Comment on above: Order Comment: Speci men Type: BLOOD SPECIMEN Performed By: #### 5 7021-8 ####[facility]ATORYCLIA [id number] [address] Platelets (Bld) [#/Vol] 236 10*3/uL Normal 150-400 [facility] Comment on above: Order Comment: Speci men Type: BLOOD SPECIMEN Performed By: #### 5 7021-8 ####[facility]ATORYCLIA [id number] [address] [place] RBC (Bld) [#/Vol] 4.50 10*6/uL Normal 4.20-6.00 [facility] Comment on above: Order Comment: Speci men Type: BLOOD SPECIMEN Performed By: #### 5 7021-8 ####[facility]ATORYCLIA [id number] [address] WBC (Bld) [#/Vol] 10.14 10*3/uL Normal 3.70-11.00 [facility] Comment on above: Order Comment: Speci men Type: BLOOD SPECIMEN Performed By: #### 5 7021-8 ####[facility]ATORYCLIA [id number] [address] CBC panel Auto (Bld)on 06-07 Erythrocyte distribution width (RBC) [Ratio] 15.8 % High 11.5-15.0 [facility] Comment on above: Order Comment: Speci men Type: BLOOD SPECIMEN Performed By: #### 5 8410-2 ####[facility]ATORYCLIA [id number] [address] Hematocrit (Bld) [Volume fraction] 40.0 % Normal 39.0-51.0 [facility] Comment on above: Order Comment: Speci men Type: BLOOD SPECIMEN Performed By: #### 5 8410-2 ####[facility]ATORYCLIA [id number] [address] Hemoglobin (Bld) [Mass/Vol] 12.3 g/dL Low 13.0-17.0 [facility] Comment on above: Order Comment: Speci men Type: BLOOD SPECIMEN Performed By: #### 5 8410-2 ####[facility]ATORYCLIA [id number] [address] MCH (RBC) [Entitic mass] 27.3 pg Normal 26.0-34.0 [facility] Comment on above: Order Comment: Speci men Type: BLOOD SPECIMEN Performed By: #### 5 8410-2 ####[facility]ATORYCLIA [id number] [address] MCHC (RBC) [Mass/Vol] 30.8 g/dL Normal 30.5-36.0 [facility] Comment on above: Order Comment: Speci men Type: BLOOD SPECIMEN Performed By: #### 5 8410-2 ####[facility]ATORYCLIA [id number] [address] MCV (RBC) [Entitic vol] 88.7 fL Normal 80.0-100.0 [facility] Comment on above: Order Comment: Speci men Type: BLOOD SPECIMEN Performed By: #### 5 8410-2 ####[facility]ATORYCLIA [id number] [address] Nucleated RBC (Bld) [#/Vol] 10*3/uL Normal <0.01 [facility] Comment on above: Order Comment: Speci men Type: BLOOD SPECIMEN Performed By: #### 5 8410-2 ####[facility]ATORYCLIA [id number] [address] Platelet mean volume (Bld) [Entitic vol] 10.0 fL Normal 9.0-12.7 [facility] Comment on above: Order Comment: Speci men Type: BLOOD SPECIMEN Performed By: #### 5 8410-2 ####[facility]ATORYCLIA [id number] [address] Platelets (Bld) [#/Vol] 234 10*3/uL Normal 150-400 [facility] Comment on above: Order Comment: Speci men Type: BLOOD SPECIMEN Performed By: #### 5 8410-2 ####[facility]ATORYCLIA [id number] [address] RBC (Bld) [#/Vol] 4.51 10*6/uL Normal 4.20-6.00 [facility] Comment on above: Order Comment: Speci men Type: BLOOD SPECIMEN Performed By: #### 5 8410-2 ####[facility]ATORYCLIA [id number] [address] OF [place] WBC (Bld) [#/Vol] 11.47 10*3/uL High 3.70-11.00 [facility] Comment on above: Order Comment: Speci men Type: BLOOD SPECIMEN Performed By: #### 5 8410-2 ####[facility]ORATORYCLIA [id number] [address] OF [facility] CONSULT PROGon 06-07-2021 CONSULT PROG Normal [facility] CONSULT PROG Normal [facility] CSF MANUAL DIFFon 06-07-2021 DIF TTL, CSF 92 cells counted Normal [facility] Comment on above: Order Comment: Speci men Type: CEREBROSPINAL FLUID Performed By: #### 3 4563-7, [id number], [id number] ####[facility]ATORYCLIA [id number] [address] EOSIN%, CSF 1 % Normal [facility] Comment on above: Order Comment: Speci men Type: CEREBROSPINAL FLUID Performed By: #### 3 4563-7, [id number], [id number] ####[facility]ATORYCLIA [id number] [address] OF [place] LYMPH%, CSF 21 % Low 50-90 [facility] Comment on above: Order Comment: Speci men Type: CEREBROSPINAL FLUID Performed By: #### 3 4563-7, [id number], [id number] ####[facility]ORATORYCLIA [id number] [address] STATES [place] MACRO%, CSF 27 % High <1 [facility] Comment on above: Order Comment: Speci men Type: CEREBROSPINAL FLUID Result Comment: Tati ected result: Previously reported as 22 % on 06/07/2021 at 1:49 PM EST. Performed By: #### 3 4563-7, [id number], [id number] ####[facility]ATORYCLIA [id number] [address] OF [place] MONO%, CSF 36 % Normal 10-50 [facility] Comment on above: Order Comment: Speci men Type: CEREBROSPINAL FLUID Performed By: #### 3 4563-7, [id number], [id number] ####[facility]ATORYCLIA [id number] [address] NEUT%, CSF 11 % High 0-3 [facility] Comment on above: Order Comment: Speci men Type: CEREBROSPINAL FLUID Performed By: #### 3 4563-7, [id number], [id number] ####[facility]ATORYCLIA [id number] [address] OTHER CL%, CSF 4 % Normal [facility] Comment on above: Order Comment: Speci men Type: CEREBROSPINAL FLUID Result Comment: Path review to follow.Corrected result: Previously reported as 10 % on 06/07/2021 at 1:49 PM EST. Performed By: #### 3 4563-7, [id number], [id number] ####[facility]ATORYCLIA [id number] [address] CSF PATHOLOGIST INTERP (LAB REFLEX ORDER-NO BILL)on 06-07-2021 CSF STAFF REVIEW Negative for maligna nt cells. Rare immature myeloid or ventricular lining cells. Normal [facility] Comment on above: Order Comment: Speci men Type: CEREBROSPINAL FLUID Performed By: #### 3 4563-7, [id number], [id number] ####[facility]ATORYCLIA [id number] [address] Pathologist name Reviewed by Eloise rebolledo MD [facility] Comment on above: Order Comment: Speci men Type: CEREBROSPINAL FLUID Performed By: #### 3 4563-7, [id number], [id number] ####[facility]ATORYCLIA [id number] [address] BRAIN WO IVCONon 06-07-19 CT BRAIN WO IVCON Normal [facility] CT BRAIN WO IVCON Normal [facility] Cell count panel (CSF)on Clarity (CSF) Clear Normal Clear [facility] Comment on above: Order Comment: Speci men Type: CEREBROSPINAL FLUID Performed By: #### 3 4563-7, [id number], [id number] ####[facility]ATORYCLIA [id number] [address] Clarity (Unsp spec) Not Indicated Normal Clear [facility] Comment on above: Order Comment: Speci men Type: CEREBROSPINAL FLUID Performed By: #### 3 4563-7, [id number], [id number] ####[facility]ATORYCLIA [id number] [address] Color (CSF) Colorless Normal Colorless [facility] Comment on above: Order Comment: Speci men Type: CEREBROSPINAL FLUID Performed By: #### 3 4563-7, [id number], [id number] ####[facility]ATORYCLIA [id number] [address] Color (Spun CSF) Not Indicated Normal Colorless [facility] Comment on above: Order Comment: Speci men Type: CEREBROSPINAL FLUID Performed By: #### 3 4563-7, [id number], [id number] ####[facility]ATORYCLIA [id number] [address] CSF TUBE NUMBER [employer] Normal [facility] Comment on above: Order Comment: Speci men Type: CEREBROSPINAL FLUID Performed By: #### 3 4563-7, [id number], [id number] ####[facility]ORYCLIA [id number] [address] RBC Manual cnt (CSF) [#/Vol] 42 cells/uL High 0-5 [facility] Comment on above: Order Comment: Speci men Type: CEREBROSPINAL FLUID Performed By: #### 3 4563-7, [id number], [id number] ####[facility]ATORYCLIA [id number] [address] WBC Manual cnt (CSF) [#/Vol] 1 cells/uL Normal 0-5 [facility] Comment on above: Order Comment: Speci men Type: CEREBROSPINAL FLUID Performed By: #### 3 4563-7, [id number], [id number] ####[facility]ATORYCLIA [id number] [place] [address] [place] Glucose CSF-mCncon 2 Glucose (CSF) [Mass/Vol] 92 mg/dL High 40-70 [facility] Comment on above: Order Comment: Speci men Type: CEREBROSPINAL FLUID Result Comment: Lumb ar CSF glucose values of healthy patients are approximately 60% of the plasma values and must always be compared with a concurrently measured plasma value for adequate clinical interpretation.References: 1. Glucose HK (GLUC3) [package insert V 12.0 Haitian]. [facility], [place], [place]. September 2015. 2. Michelle Moore, Loki H. (2015). Chapter 7: Glucose and Lactate. Marianela Rothman.(eds.), Cerebrospinal Fluid in Clinical Neurology. Stearns: [employer]. Performed By: #### 2 880-3, 2342-4 ####[facility]ATORYCLIA [id number] [address] OF [facility] Lactate (Bld) [Moles/Vol]on 06-07-2021 Lactate [Moles/Vol] 0.9 mmol/L Normal 0.5-2.2 [facility] Comment on above: Order Comment: Speci men Type: BLOOD SPECIMEN Performed By: #### 3 2693-4 ####[facility]ATORYCLIA [id number] [address] [place] Lipase SerPl-cCncon 06-07-19 22 Lipase [Catalytic activity/Vol] 35 U/L Normal 16-61 [facility] Comment on above: Order Comment: Speci men Type: BLOOD SPECIMEN Performed By: #### 3 040-3, PROCAL ####[facility]ATORYCLIA [id number] [address] [place] Magnesium SerPl-mCncon 06-07 Magnesium [Mass/Vol] 2.7 mg/dL High 1.7-2.3 [facility] Comment on above: Order Comment: Speci men Type: BLOOD SPECIMEN Performed By: #### 1 9123-9, 2777-1, 01135-9 ####[facility]ATORYCLIA [id number] [address] PROCALCITONIN (LAB)on 2021 Procalcitonin [Mass/Vol] 0.13 ng/mL High <0.09 [facility] Comment on above: Order Comment: Speci men Type: BLOOD SPECIMEN Result Comment: For a guided interpretation of test results, please visit the [facility] in Procalcitonin Calculator, [email or web address]. Performed By: #### 3 040-3, PROCAL ####[facility]ATORYCLIA [id number] [address] [facility] Phosphate SerPl-mCncon 06-07 Phosphate [Mass/Vol] 1.9 mg/dL Low 2.7-4.8 [facility] Comment on above: Order Comment: Speci men Type: BLOOD SPECIMEN Performed By: #### 1 9123-9, 2777-1, 61349-2 ####[facility]ATORYCLIA [id number] [address] Prot CSF-mCncon 06-07-2021 Protein (CSF) [Mass/Vol] 33 mg/dL Normal 15-45 [facility] Comment on above: Order Comment: Speci men Type: CEREBROSPINAL FLUID Performed By: #### 2 880-3, 2342-4 ####[facility]ATORYCLIA [id number] [address] SARS-CoV-2 RNA Resp Ql MEGAN+p robeon 06-07-2021 SARS-CoV-2 (COVID-19) RNA MEGAN+probe Ql (Resp) COVID 19 RESULT: SARS-CoV-2 (Agent of COVID-19) Not Detected by PCR. This test has been authorized by FDA under an Emergency Use Authorization (EUA). Normal [facility] Comment on above: Performed By: #### 9 4500-6 ####[facility]ORATORYCLIA [id number] [place] [address] [facility] TYPE AND SCREENon 06-07-2021 ABO O Normal [facility] Comment on above: Order Comment: Speci men Type: BLOOD SPECIMEN Performed By: #### T SCR ####[facility] BANKCLIA [id number] [place] [id number] [facility] HISTORICAL AB SCR STATUS Negative Normal [facility] Comment on above: Order Comment: Speci men Type: BLOOD SPECIMEN Performed By: #### T SCR ####[facility]LO[facility] BANKCLIA [id number] [address] Rh Nom (Bld) Positive Normal [facility] Comment on above: Order Comment: Speci men Type: BLOOD SPECIMEN Performed By: #### T SCR ####[facility] BANKCLIA [id number] [address] TYPE AND SCREEN EXPIRATION 06/10/2021 23:59 Normal [facility] Comment on above: Order Comment: Speci men Type: BLOOD SPECIMEN Performed By: #### T SCR ####[facility]LO[facility] BANKCLIA [id number] [address] Vancomycin random [Mass/Vol] on 06-07-2021 Vancomycin [Mass/Vol] 16.5 ug/mL Normal 10.0-20.0 [facility] Comment on above: Order Comment: Speci men Type: BLOOD SPECIMEN Result Comment: Refe rence ranges and high/low indicator flags are provided as general guidelines only. The treating physician must determine appropriate target levels/dosing based on the specific clinical situation. Performed By: #### 4 091-5 ####[facility]ATORYCLIA [id number] [address] XR CHEST 1V FRONTAL PORTon 0 06-07-2021 XR CHEST 1V FRONTAL PORT Normal [facility] Basic metabolic 2000 panelon 06-06-2021 Anion gap [Moles/Vol] 11 mmol/L Normal 9-18 [facility] Comment on above: Order Comment: Speci men Type: BLOOD SPECIMEN Performed By: #### 2 4321-2, , 2776-05 ####[facility]ATORYCLIA [id number] [address] STATES OF [facility] Calcium [Mass/Vol] 8.6 mg/dL Normal 8.5-10.2 [facility] Comment on above: Order Comment: Speci men Type: BLOOD SPECIMEN Performed By: #### 2 4321-2, , 2776-05 ####[facility]ATORYCLIA [id number] [address] [place] Chloride [Moles/Vol] 108 mmol/L High 97-105 [facility] Comment on above: Order Comment: Speci men Type: BLOOD SPECIMEN Performed By: #### 2 1-2, , 2776-05 ####[facility]ATORYCLIA [id number] [address] [place] [facility] CO2 [Moles/Vol] 25 mmol/L Normal 22-30 [facility] Comment on above: Order Comment: Speci men Type: BLOOD SPECIMEN Performed By: #### 2 1-2, , 2776-05 ####[facility]ATORYCLIA [id number] [address] [place] Creatinine [Mass/Vol] 0.76 mg/dL Normal 0.73-1.22 [facility] Comment on above: Order Comment: Speci men Type: BLOOD SPECIMEN Performed By: #### 2 4321-2, , 2776-05 ####[facility]ATORYCLIA [id number] [place] [address] [place] GFR/1.73 sq M.predicted MDRD (S/P/Bld) [Vol rate/Area] mL/min/{1.73_m2} Normal [facility] Comment on above: [...] Performed By: #### 2 432-2, , 2776-05 ####[facility]ATORYCLIA [id number] [place] [address] [place] Glucose [Mass/Vol] 116 mg/dL High 74-99 [facility] Comment on above: Order Comment: Speci men Type: BLOOD SPECIMEN Result Comment: The [place] [employer] (ADA) provides guidance for cutoff [...] Standards of Medical Care in Diabetes 2016, [place] [employer]. Diabetes Care. 2016.39(Suppl 1). Performed By: #### 2 432-2, , 2776-05 ####[facility]ATORYCLIA [id number] [address] [place] Potassium [Moles/Vol] 3.5 mmol/L Low 3.7-5.1 [facility] Comment on above: Order Comment: Speci men Type: BLOOD SPECIMEN Performed By: #### 2 4321-2, , 2776-05 ####[facility]ATORYCLIA [id number] [address] [place] Sodium [Moles/Vol] 144 mmol/L Normal 136-144 [facility] Comment on above: Order Comment: Speci men Type: BLOOD SPECIMEN Performed By: #### 2 4321-2, 61109-7, 2776- ####[facility]ATORYCLIA [id number] [address] Urea nitrogen [Mass/Vol] 31 mg/dL High 9-24 [facility] Comment on above: Order Comment: Speci men Type: BLOOD SPECIMEN Performed By: #### 2 4321-2, 04308-6, 2776-05 ####[facility]ATORYCLIA [id number] [address] CASE MANAGEMon 06-06-2021 CASE MANAGEM Normal [facility] CBC panel Auto (Bld)on 06-06 Erythrocyte distribution width (RBC) [Ratio] 15.8 % High 11.5-15.0 [facility] Comment on above: Order Comment: Speci men Type: BLOOD SPECIMEN Performed By: #### 5 8410-2 ####[facility]ATORYCLIA [id number] [address] Hematocrit (Bld) [Volume fraction] 39.5 % Normal 39.0-51.0 [facility] Comment on above: Order Comment: Speci men Type: BLOOD SPECIMEN Performed By: #### 5 8410-2 ####[facility]ATORYCLIA [id number] [address] Hemoglobin (Bld) [Mass/Vol] 12.2 g/dL Low 13.0-17.0 [facility] Comment on above: Order Comment: Speci men Type: BLOOD SPECIMEN Performed By: #### 5 8410-2 ####[facility]ATORYCLIA [id number] [address] MCH (RBC) [Entitic mass] 27.8 pg Normal 26.0-34.0 [facility] Comment on above: Order Comment: Speci men Type: BLOOD SPECIMEN Performed By: #### 5 8410-2 ####[facility]ATORYCLIA [id number] [address] [place] MCHC (RBC) [Mass/Vol] 30.9 g/dL Normal 30.5-36.0 [facility] Comment on above: Order Comment: Speci men Type: BLOOD SPECIMEN Performed By: #### 5 8410-2 ####[facility]ATORYCLIA [id number] [address] MCV (RBC) [Entitic vol] 90.0 fL Normal 80.0-100.0 [facility] Comment on above: Order Comment: Speci men Type: BLOOD SPECIMEN Performed By: #### 5 8410-2 ####[facility]ATORYCLIA [id number] [address] Nucleated RBC (Bld) [#/Vol] 10*3/uL Normal <0.01 [facility] Comment on above: Order Comment: Speci men Type: BLOOD SPECIMEN Performed By: #### 5 8410-2 ####[facility]ATORYCLIA [id number] [address] Platelet mean volume (Bld) [Entitic vol] 10.4 fL Normal 9.0-12.7 [facility] Comment on above: Order Comment: Speci men Type: BLOOD SPECIMEN Performed By: #### 5 8410-2 ####[facility]ATORYCLIA [id number] [address] Platelets (Bld) [#/Vol] 236 10*3/uL Normal 150-400 [facility] Comment on above: Order Comment: Speci men Type: BLOOD SPECIMEN Performed By: #### 5 8410-2 ####[facility]ATORYCLIA [id number] [address] RBC (Bld) [#/Vol] 4.39 10*6/uL Normal 4.20-6.00 [facility] Comment on above: Order Comment: Speci men Type: BLOOD SPECIMEN Performed By: #### 5 8410-2 ####[facility]ATORYCLIA [id number] [address] WBC (Bld) [#/Vol] 9.74 10*3/uL Normal 3.70-11.00 [facility] Comment on above: Order Comment: Speci men Type: BLOOD SPECIMEN Performed By: #### 5 8410-2 ####[facility]ATORYCLIA [id number] [address] CONSULT PROGon 06-06-2021 CONSULT PROG Normal [facility] CONSULT PROG Normal [facility] Magnesium SerPl-mCncon 06-06 Magnesium [Mass/Vol] 2.5 mg/dL High 1.7-2.3 [facility] Comment on above: Order Comment: Speci men Type: BLOOD SPECIMEN Performed By: #### 2 4321-2, 51087-6, 2777-1 ####[facility]ORATORYCLIA [id number] [address] PT panel Coag (PPP)on 2021 INR Coag (PPP) [Relative time] 1.0 {INR} Normal 0.9-1.3 [facility] Comment on above: Order Comment: Speci men Type: BLOOD SPECIMEN Result Comment: Yris min K Antagonist (VKA) Therapeutic Range: INR 2 to 3 (Target INR of 2.5)Note: For patients treated with VKA drugs, such as warfarin, the [place] [employer] 2012 Guideline recommends [...] of 3).Jeffy GH, et al. Chest 2012, 141:7S-47SNishcameliaura RA, et al. JAC 2017, 70: 252-289 Performed By: #### 3 4528-0, 25092-6 ####[facility]ORATORYCLIA [id number] [address] PT Coag (PPP) [Time] 11.4 s Normal 9.7-13.0 [facility] Comment on above: Order Comment: Speci men Type: BLOOD SPECIMEN Performed By: #### 3 4528-0, 35654-0 ####[facility]ORATORYCLIA [id number] [address] Phosphate SerPl-mCncon 06-06 Phosphate [Mass/Vol] 2.3 mg/dL Low 2.7-4.8 [facility] Comment on above: Order Comment: Speci men Type: BLOOD SPECIMEN Performed By: #### 2 4321-2, 27396-6, 2777-1 ####[facility]ORATORYCLIA [id number] [address] THROMBOGRAPH HEPARINASE PANE Kiel 06-06-2021 Clot angle after addition of heparinase TEG (Bld) [Angle] 70.2 degrees Normal 47.0-74.0 [facility] Comment on above: Order Comment: Speci men Type: BLOOD SPECIMEN Performed By: #### T EGHPP ####[facility]ORATORYCLIA [id number] [address] Clot Lysis 30 Min post maximum clot amplitude TEG (Bld) [Length fraction] 0.0 % Normal 0.0-8.0 [facility] Comment on above: Order Comment: Speci men Type: BLOOD SPECIMEN Performed By: #### T EGHPP ####[facility]ATORYCLIA [id number] [address] Clotting time after addition of heparinase TEG (Bld) 5.7 minutes Normal 4.0-10.0 [facility] Comment on above: Order Comment: Speci men Type: BLOOD SPECIMEN Performed By: #### T EGHPP ####[facility]ORATORYCLIA [id number] [address] Coagulation index TEG Qn (Bld) 1.2 Normal -4.6-3.2 [facility] Comment on above: Order Comment: Speci men Type: BLOOD SPECIMEN Result Comment: The Coagulation Index, a secondary parameter, is labeled by the weapons specialist as for "research use only" and is used per the weapons specialist's instructions. Its performance characteristics were determined by [facility]'s [facility] [place] in a manner consistent with CLIA requirements. This test has not been cleared by the U.S. Food and Drug Administration. Performed By: #### T EGHPP ####[facility] LABORATORYCLIA [id number] [address] Maximum clot firmness after addition of heparinase TEG (Bld) [Length] 64.0 mm Normal 51.0-75.0 [facility] Comment on above: Order Comment: Speci men Type: BLOOD SPECIMEN Performed By: #### T EGHPP ####[facility] [facility] LABORATORYCLIA [id number] [address] [facility] Vancomycin random [Mass/Vol] on 06-06-2021 Vancomycin [Mass/Vol] 17.4 ug/mL Normal 10.0-20.0 [facility] Comment on above: Order Comment: Speci men Type: BLOOD SPECIMEN Result Comment: Refe rence ranges and high/low indicator flags are provided as general guidelines only. The treating physician must determine appropriate target levels/dosing based on the specific clinical situation. Performed By: #### 4 091-5 ####[facility]ORATORYCLIA [id number] [address] [facility] Vancomycin [Mass/Vol] 13.5 ug/mL Normal 10.0-20.0 [facility] Comment on above: Order Comment: Speci men Type: BLOOD SPECIMEN Result Comment: Refe rence ranges and high/low indicator flags are provided as general guidelines only. The treating physician must determine appropriate target levels/dosing based on the specific clinical situation. Performed By: #### 4 091-5 ####[facility] LABORATORYCLIA [id number] [address] [place] aPTT PPPon 06-06-2021 aPTT Coag (PPP) [Time] 27.8 s Normal 23.0-32.4 [facility] Comment on above: Order Comment: Speci men Type: BLOOD SPECIMEN Performed By: #### 3 4528-0, 64365-3 ####[facility]ORATORYCLIA [id number] [address] [place] Basic metabolic 2000 panelon 06-05-2021 Anion gap [Moles/Vol] 11 mmol/L Normal 9-18 [facility] Comment on above: Order Comment: Speci men Type: BLOOD SPECIMEN Performed By: #### 1 9123-9, 53170-5, 2776- ####[facility]ORATORYCLIA [id number] [address] [place] Calcium [Mass/Vol] 8.6 mg/dL Normal 8.5-10.2 [facility] Comment on above: Order Comment: Speci men Type: BLOOD SPECIMEN Performed By: #### 1 9123-9, 50529-1, 2776- ####[facility]ORATORYCLIA [id number] [address] [place] Chloride [Moles/Vol] 108 mmol/L High 97-105 [facility] Comment on above: Order Comment: Speci men Type: BLOOD SPECIMEN Performed By: #### 1 9123-9, 10798-9, 2776- ####[facility]ATORYCLIA [id number] [place] [address] [place] CO2 [Moles/Vol] 25 mmol/L Normal 22-30 [facility] Comment on above: Order Comment: Speci men Type: BLOOD SPECIMEN Performed By: #### 1 9123-9, 84117-6, 2776- ####[facility]ORATORYCLIA [id number] [place] [address] [place] Creatinine [Mass/Vol] 0.77 mg/dL Normal 0.73-1.22 [facility] Comment on above: Order Comment: Speci men Type: BLOOD SPECIMEN Performed By: #### 1 9123-9, 67932-4, 2776-05 ####[facility]ORATORYCLIA [id number] [address] [place] GFR/1.73 sq M.predicted MDRD (S/P/Bld) [Vol rate/Area] mL/min/{1.73_m2} Normal [facility] Comment on above: [...] actual GFR. Performed By: #### 1 9123-9, 39848-1, 2776-05 ####[facility]ORATORYCLIA [id number] [place] [address] [place] Glucose [Mass/Vol] 96 mg/dL Normal 74-99 [facility] Comment on above: Order Comment: [facility] Type: BLOOD SPECIMEN Result Comment: The [place] [employer] (ADA) provides guidance for cutoff [...] Standards of Medical Care in Diabetes 2016, [place] [employer]. Diabetes Care. 2016.39(Suppl 1). Performed By: #### 1 91239, , 2776-05 ####[facility]ORATORYCLIA [id number] [address] Potassium [Moles/Vol] 3.9 mmol/L Normal 3.7-5.1 [facility] Comment on above: Order Comment: Speci men Type: BLOOD SPECIMEN Performed By: #### 1 9123-9, 76746-1, 2776- ####[facility]ORATORYCLIA [id number] [address] Sodium [Moles/Vol] 144 mmol/L Normal 136-144 [facility] Comment on above: Order Comment: Speci men Type: BLOOD SPECIMEN Performed By: #### 1 239, , 2776-05 ####[facility] LABORATORYCLIA [id number] [address] Urea nitrogen [Mass/Vol] 26 mg/dL High 9-24 [facility] Comment on above: Order Comment: Speci men Type: BLOOD SPECIMEN Performed By: #### 1 23-9, , 2776-05 ####[facility]ORATORYCLIA [id number] [address] CBC panel Auto (Bld)on 06-05 Erythrocyte distribution width (RBC) [Ratio] 15.9 % High 11.5-15.0 [facility] Comment on above: Order Comment: Speci men Type: BLOOD SPECIMEN Performed By: #### 5 8410-2 ####[facility] LABORATORYCLIA [id number] [address] Hematocrit (Bld) [Volume fraction] 39.6 % Normal 39.0-51.0 [facility] Comment on above: Order Comment: Speci men Type: BLOOD SPECIMEN Performed By: #### 5 8410-2 ####[facility]ORATORYCLIA [id number] [address] Hemoglobin (Bld) [Mass/Vol] 12.3 g/dL Low 13.0-17.0 [facility] Comment on above: Order Comment: Speci men Type: BLOOD SPECIMEN Performed By: #### 5 8410-2 ####[facility]ORATORYCLIA [id number] [address] MCH (RBC) [Entitic mass] 28.1 pg Normal 26.0-34.0 [facility] Comment on above: Order Comment: Speci men Type: BLOOD SPECIMEN Performed By: #### 5 8410-2 ####[facility]ORATORYCLIA [id number] [address] MCHC (RBC) [Mass/Vol] 31.1 g/dL Normal 30.5-36.0 [facility] Comment on above: Order Comment: Speci men Type: BLOOD SPECIMEN Performed By: #### 5 8410-2 ####[facility]ORATORYCLIA [id number] [address] MCV (RBC) [Entitic vol] 90.4 fL Normal 80.0-100.0 [facility] Comment on above: Order Comment: Speci men Type: BLOOD SPECIMEN Performed By: #### 5 8410-2 ####[facility]ORATORYCLIA [id number] [address] Nucleated RBC (Bld) [#/Vol] 10*3/uL Normal <0.01 [facility] Comment on above: Order Comment: Speci men Type: BLOOD SPECIMEN Performed By: #### 5 8410-2 ####[facility]ORATORYCLIA [id number] [address] Platelet mean volume (Bld) [Entitic vol] 10.5 fL Normal 9.0-12.7 [facility] Comment on above: Order Comment: Speci men Type: BLOOD SPECIMEN Performed By: #### 5 8410-2 ####[facility]ORATORYCLIA [id number] [address] Platelets (Bld) [#/Vol] 224 10*3/uL Normal 150-400 [facility] Comment on above: Order Comment: Speci men Type: BLOOD SPECIMEN Performed By: #### 5 8410-2 ####[facility]ORATORYCLIA [id number] [address] [place] [facility] RBC (Bld) [#/Vol] 4.38 10*6/uL Normal 4.20-6.00 [facility] Comment on above: Order Comment: Speci men Type: BLOOD SPECIMEN Performed By: #### 5 8410-2 ####[facility]ORATORYCLIA [id number] [address] [place] WBC (Bld) [#/Vol] 9.66 10*3/uL Normal 3.70-11.00 [facility] Comment on above: Order Comment: Speci men Type: BLOOD SPECIMEN Performed By: #### 5 8410-2 ####[facility]ORATORYCLIA [id number] [address] [facility] CONSULT PROGon 06-05-2021 CONSULT PROG Normal [facility] Gas and Carbon monoxide pane l (BldV)on 06-05-2021 Base excess Calc (BldV) [Moles/Vol] 1.8 mmol/L Normal 0-2 [facility] Comment on above: Order Comment: Speci men Type: VENOUS BLOOD SPECIMEN Performed By: #### 2 4344-4 ####[facility]ORATORYCLIA [id number] [address] [facility] Body temperature 100.4 [degF] Normal [facility] Comment on above: Order Comment: Speci men Type: VENOUS BLOOD SPECIMEN Performed By: #### 2 4344-4 ####[facility]ORATORYCLIA [id number] [address] CALCIUM IONIZED, PH CORRECTED 1.21 mmol/L Normal 1.08-1.30 [facility] Comment on above: Order Comment: Speci men Type: VENOUS BLOOD SPECIMEN Performed By: #### 2 4344-4 ####[facility]ORATORYCLIA [id number] [address] Calcium.ionized (BldV) [Mass/Vol] 1.19 mmol/L Normal 1.08-1.30 [facility] Comment on above: Order Comment: Speci men Type: VENOUS BLOOD SPECIMEN Performed By: #### 2 4344-4 ####[facility]ORATORYCLIA [id number] [address] [facility] Carboxyhemoglobin (BldV) [Mass fraction] 1.0 % Normal 0.0-2.0 [facility] Comment on above: Order Comment: Speci men Type: VENOUS BLOOD SPECIMEN Result Comment: Carb oxyhemoglobin Reference Range for Smokers: 2.0-8.0% Performed By: #### 2 4344-4 ####[facility]ORATORYCLIA [id number] [address] CO2 (BldV) [Partial pressure] 41 mm[Hg] Low 42-55 [facility] Comment on above: Order Comment: Speci men Type: VENOUS BLOOD SPECIMEN Performed By: #### 2 4344-4 ####[facility]ORATORYCLIA [id number] [address] CO2 [Moles/Vol] 23.4 mmol/L Low 25-29 [facility] Comment on above: Order Comment: Speci men Type: VENOUS BLOOD SPECIMEN Performed By: #### 2 4344-4 ####[facility]ORATORYCLIA [id number] [address] CO2 adjusted to patient's actual temperature (BldV) [Partial pressure] 43 mmHg Normal 42-55 [facility] Comment on above: Order Comment: Speci men Type: VENOUS BLOOD SPECIMEN Performed By: #### 2 4344-4 ####[facility]ORATORYCLIA [id number] [address] Glucose [Mass/Vol] 101 mg/dL Normal 60-105 [facility] Comment on above: Order Comment: Speci men Type: VENOUS BLOOD SPECIMEN Performed By: #### 2 4344-4 ####[facility]ORATORYCLIA [id number] [place], [place] [id number] [place] [address] [facility] HCO3 (Bld) [Moles/Vol] 26.0 mmol/L Normal 24-28 [facility] Comment on above: Order Comment: Speci men Type: VENOUS BLOOD SPECIMEN Performed By: #### 2 4344-4 ####[facility] LABORATORYCLIA [id number] [address] Hematocrit (Bld) [Volume fraction] 38.4 % Low 39.0-51.0 [facility] Comment on above: Order Comment: Speci men Type: VENOUS BLOOD SPECIMEN Performed By: #### 2 4344-4 ####[facility]ORATORYCLIA [id number] [address] Hemoglobin (Bld) [Mass/Vol] 12.5 g/dL Low 13.0-17.0 [facility] Comment on above: Order Comment: Speci men Type: VENOUS BLOOD SPECIMEN Performed By: #### 2 4344-4 ####[facility]ORATORYCLIA [id number] [address] Methemoglobin (Bld) [Mass fraction] % Normal 0.0-1.5 [facility] Comment on above: Order Comment: Speci men Type: VENOUS BLOOD SPECIMEN Performed By: #### 2 4344-4 ####[facility]ORATORYCLIA [id number] [address] O2 THERAPY Ventilator Normal [facility] Comment on above: Order Comment: Speci men Type: VENOUS BLOOD SPECIMEN Performed By: #### 2 4344-4 ####[facility]ORATORYCLIA [id number] [address] Oxygen (BldV) [Partial pressure] 44 mm[Hg] Normal 35-45 [facility] Comment on above: Order Comment: Speci men Type: VENOUS BLOOD SPECIMEN Performed By: #### 2 4344-4 ####[facility]ORATORYCLIA [id number] [address] Oxygen adjusted to patient's actual temperature (BldV) [Partial pressure] 46.8 mmHg High 35-45 [facility] Comment on above: Order Comment: Speci men Type: VENOUS BLOOD SPECIMEN Performed By: #### 2 4344-4 ####[facility]ORATORYCLIA [id number] [address] Oxygen saturation in Blood 76.5 % Normal 60-85 [facility] Comment on above: Order Comment: Speci men Type: VENOUS BLOOD SPECIMEN Performed By: #### 2 4344-4 ####[facility]ORATORYCLIA [id number] [address] Oxyhemoglobin (BldV) [Mass fraction] 75 % Normal 60-85 [facility] Comment on above: Order Comment: Speci men Type: VENOUS BLOOD SPECIMEN Performed By: #### 2 4344-4 ####[facility]ORATORYCLIA [id number] [address] [facility] pH (BldV) 7.42 [pH] Normal 7.32-7.42 [facility] Comment on above: Order Comment: Speci men Type: VENOUS BLOOD SPECIMEN Performed By: #### 2 4344-4 ####[facility]ORATORYCLIA [id number] [address] pH adjusted to patient's actual temperature (BldV) 7.40 Normal 7.32-7.42 [facility] Comment on above: Order Comment: Speci men Type: VENOUS BLOOD SPECIMEN Performed By: #### 2 4344-4 ####[facility]ORATORYCLIA [id number] [address] [place] Potassium [Moles/Vol] 3.7 mmol/L Normal 3.5-5.0 [facility] Comment on above: Order Comment: Speci men Type: VENOUS BLOOD SPECIMEN Performed By: #### 2 4344-4 ####[facility]ORATORYCLIA [id number] [address] STATES [facility] Sodium [Moles/Vol] 141 mmol/L Normal 136-144 [facility] Comment on above: Order Comment: Speci men Type: VENOUS BLOOD SPECIMEN Performed By: #### 2 4344-4 ####[facility]ORATORYCLIA [id number] [address] [facility] Magnesium SerPl-mCncon 06-05 Magnesium [Mass/Vol] 2.3 mg/dL Normal 1.7-2.3 [facility] Comment on above: Order Comment: Speci men Type: BLOOD SPECIMEN Performed By: #### 1 9123-9, 98452-1, 2777-1 ####[facility]ORATORYCLIA [id number] [address] [facility] Phosphate SerPl-mCncon 06-05 Phosphate [Mass/Vol] 2.9 mg/dL Normal 2.7-4.8 [facility] Comment on above: Order Comment: Speci men Type: BLOOD SPECIMEN Performed By: #### 1 9123-9, 82736-3, 277-1 ####[facility]ORATORYCLIA [id number] [address] Vancomycin random [Mass/Vol] on 06-05-2021 Vancomycin [Mass/Vol] 23.2 ug/mL High 10.0-20.0 [facility] Comment on above: Order Comment: Speci men Type: BLOOD SPECIMEN Result Comment: Refe rence ranges and high/low indicator flags are provided as general guidelines only. The treating physician must determine appropriate target levels/dosing based on the specific clinical situation. Performed By: #### 4 091-5 ####[facility]ORATORYCLIA [id number] [place] [address] [place] (1,3)-F-T-DDWSVSjn 2 (1,3) B-D GLUCAN <31 Normal <60 [facility] Comment on above: Order Comment: Speci men Type: BLOOD SPECIMEN Performed By: #### B DGLUC ####[facility] REFERENCE LABCLIA [id number] NILESH MCKEON [id number] [place] [address] [place] (1,3) B-D GLUCAN, QUAL Negative Normal NEGAT [facility] Comment on above: Order Comment: Speci men Type: BLOOD SPECIMEN Result Comment: Cert ain fungi, such as the genus Cryptococcus which produces very low levels of (1,3)-duhb-F-xytjnv, may not result in serum (1,3)-zrtw-F-qiznfm sufficiently elevated so as to be detected by the assay. Infections with fungi of the order Mucorales such as Absidia, Mucor and Rhizopus which are not known to produce (1,3)-sfff-U-rismfm, are also observed to yield low serum (1,3)-jxut-M-virbgo titers.In addition, the yeast phase of Blastomyces dermatitidis produces little (1,3)-rjsw-V-bigzco and may not be detected by the assay. Performed By: #### B DGLUC ####[facility] REFERENCE LABCLIA [id number] [email or web address] [place] [id number] [place] ALLIED HEALTHon 06-04-2021 ALLIED HEALTH Normal [facility] ALLIED HEALTH Normal [facility] ARTERIAL BLOOD GASESon 06-04 Base excess Calc (Bld) [Moles/Vol] 3 mmol/L High 0-2 [facility] Comment on above: Order Comment: Speci men Type: ARTERIAL BLOOD SPECIMEN Performed By: #### A LLBG ####[facility]ORATORYCLIA [id number] [place] [address] [place] Body temperature 98.06 [degF] Normal [facility] Comment on above: Order Comment: Speci men Type: ARTERIAL BLOOD SPECIMEN Performed By: #### A LLBG ####[facility]ORATORYCLIA [id number] [place] [address] [place] CALCIUM IONIZED, PH CORRECTED 1.19 mmol/L Normal 1.08-1.30 [facility] Comment on above: Order Comment: Speci men Type: ARTERIAL BLOOD SPECIMEN Performed By: #### A LLBG ####[facility]ORATORYCLIA [id number] [address] [place] Calcium.ionized (BldV) [Mass/Vol] 1.14 mmol/L Normal 1.08-1.30 [facility] Comment on above: Order Comment: Speci men Type: ARTERIAL BLOOD SPECIMEN Performed By: #### A LLBG ####[facility]ORATORYCLIA [id number] [address] [place] Carboxyhemoglobin (BldA) [Mass fraction] 1.2 % Normal 0.0-2.0 [facility] Comment on above: Order Comment: Speci men Type: ARTERIAL BLOOD SPECIMEN Result Comment: Carb oxyhemoglobin Reference Range for Smokers: 2.0-8.0% Performed By: #### A LLBG ####[facility]ORATORYCLIA [id number] [address] [place] CO2 (Bld) [Partial pressure] 35 mm Hg Low 36-46 [facility] Comment on above: Order Comment: Speci men Type: ARTERIAL BLOOD SPECIMEN Performed By: #### A LLBG ####[facility]ORATORYCLIA [id number] [address] [place] CO2 [Moles/Vol] 23.2 mmol/L Normal 22-28 [facility] Comment on above: Order Comment: Speci men Type: ARTERIAL BLOOD SPECIMEN Performed By: #### A LLBG ####[facility]ATORYCLIA [id number] [address] [place] CO2 adjusted to patient's actual temperature (Bld) [Partial pressure] 34 mmHg Low 36-46 [facility] Comment on above: Order Comment: Speci men Type: ARTERIAL BLOOD SPECIMEN Performed By: #### A LLBG ####[facility]ORATORYCLIA [id number] [address] [place] Glucose [Mass/Vol] 115 mg/dL High 60-105 [facility] Comment on above: Order Comment: Speci men Type: ARTERIAL BLOOD SPECIMEN Performed By: #### A LLBG ####[facility]ORATORYCLIA [id number] [address] [place] HCO3 (Bld) [Moles/Vol] 26 mmol/L Normal 22-26 [facility] Comment on above: Order Comment: Speci men Type: ARTERIAL BLOOD SPECIMEN Performed By: #### A LLBG ####[facility]ORATORYCLIA [id number] [address] [place] Hematocrit (Bld) [Volume fraction] 35.3 % Low 39.0-51.0 [facility] Comment on above: Order Comment: Speci men Type: ARTERIAL BLOOD SPECIMEN Performed By: #### A LLBG ####[facility]ATORYCLIA [id number] [address] Hemoglobin (Bld) [Mass/Vol] 11.5 g/dL Low 13.0-17.0 [facility] Comment on above: Order Comment: Speci men Type: ARTERIAL BLOOD SPECIMEN Performed By: #### A LLBG ####[facility]ORATORYCLIA [id number] [address] Methemoglobin (Bld) [Mass fraction] % Normal 0.0-1.5 [facility] Comment on above: Order Comment: Speci men Type: ARTERIAL BLOOD SPECIMEN Performed By: #### A LLBG ####[facility]ORATORYCLIA [id number] [address] [place] O2 THERAPY Ventilator Normal [facility] Comment on above: Order Comment: Speci men Type: ARTERIAL BLOOD SPECIMEN Performed By: #### A LLBG ####[facility]ORATORYCLIA [id number] [address] [place] Oxygen (Bld) [Partial pressure] 66 mm Hg Low 85-95 [facility] Comment on above: Order Comment: Speci men Type: ARTERIAL BLOOD SPECIMEN Performed By: #### A LLBG ####[facility]ATORYCLIA [id number] [address] [place] Oxygen adjusted to patient's actual temperature (Bld) [Partial pressure] 64.3 mmHg Low 85-95 [facility] Comment on above: Order Comment: Speci men Type: ARTERIAL BLOOD SPECIMEN Performed By: #### A LLBG ####[facility]ATORYCLIA [id number] [address] OXYGEN SATURATION, ARTERIAL 95 % Normal 95-98 [facility] Comment on above: Order Comment: Speci men Type: ARTERIAL BLOOD SPECIMEN Performed By: #### A LLBG ####[facility]ORATORYCLIA [id number] [address] Oxyhemoglobin (BldA) [Mass fraction] 93 % Low 95-98 [facility] Comment on above: Order Comment: Speci men Type: ARTERIAL BLOOD SPECIMEN Performed By: #### A LLBG ####[facility]ORATORYCLIA [id number] [address] pH (Bld) 7.49 [pH] High 7.35-7.45 [facility] Comment on above: Order Comment: Speci men Type: ARTERIAL BLOOD SPECIMEN Performed By: #### A LLBG ####[facility]ORATORYCLIA [id number] [address] pH adjusted to patient's actual temperature (Bld) 7.49 High 7.35-7.45 [facility] Comment on above: Order Comment: Speci men Type: ARTERIAL BLOOD SPECIMEN Performed By: #### A LLBG ####[facility]ORATORYCLIA [id number] [address] Potassium [Moles/Vol] 2.8 mmol/L Low 3.5-5.0 [facility] Comment on above: Order Comment: Speci men Type: ARTERIAL BLOOD SPECIMEN Performed By: #### A LLBG ####[facility]ORATORYCLIA [id number] [address] Bas Metab 2000 Pnl SerPlon 0 06-04-2021 Sodium [Moles/Vol] 143 mmol/L Normal 136-144 [facility] Comment on above: Order Comment: Speci men Type: BLOOD SPECIMEN Performed By: #### 2 777-1, , ####[facility]ATORYCLIA [id number] [address] Order Comment: Speci men Type: ARTERIAL BLOOD SPECIMEN Performed By: #### A LLBG ####[facility]ORATORYCLIA [id number] [address] Basic metabolic 2000 panelon 06-04-2021 Anion gap [Moles/Vol] 11 mmol/L Normal 9-18 [facility] Comment on above: Order Comment: Speci men Type: BLOOD SPECIMEN Performed By: #### 2 777-1, , ####[facility]ATORYCLIA [id number] [address] Calcium [Mass/Vol] 8.5 mg/dL Normal 8.5-10.2 [facility] Comment on above: Order Comment: Speci men Type: BLOOD SPECIMEN Performed By: #### 2 777-1, , ####[facility]ORATORYCLIA [id number] [address] OF [facility] Chloride [Moles/Vol] 107 mmol/L High 97-105 [facility] Comment on above: Order Comment: Speci men Type: BLOOD SPECIMEN Performed By: #### 2 777-1, , ####[facility]ATORYCLIA [id number] [address] [facility] CO2 [Moles/Vol] 25 mmol/L Normal 22-30 [facility] Comment on above: Order Comment: Speci men Type: BLOOD SPECIMEN Performed By: #### 2 777-1, , ####[facility]ATORYCLIA [id number] [address] [place] Creatinine [Mass/Vol] 0.77 mg/dL Normal 0.73-1.22 [facility] Comment on above: Order Comment: Speci men Type: BLOOD SPECIMEN Performed By: #### 2 777-1, , 33571-9 ####[facility]ORATORYCLIA [id number] [place] [id number] [place] GFR/1.73 sq M.predicted MDRD (S/P/Bld) [Vol rate/Area] mL/min/{1.73_m2} Normal [facility] Comment on above: [...] GFR. Performed By: #### 2 777-1, , ####[facility] [id number] [place] [id number] [place] Glucose [Mass/Vol] 107 mg/dL High 74-99 [facility] Comment on above: Order Comment: Speci men Type: BLOOD SPECIMEN Result Comment: The [place] [employer] (ADA) provides guidance for cutoff [...] Standards of Medical Care in Diabetes 2016, [place] [employer]. Diabetes Care. 2016.39(Suppl 1). Performed By: #### 2 777-1, , 20877-4 ####[facility]ATORYCLIA [id number] [address] Potassium [Moles/Vol] 3.1 mmol/L Low 3.7-5.1 [facility] Comment on above: Order Comment: Speci men Type: BLOOD SPECIMEN Performed By: #### 2 777-1, , 80471-6 ####[facility] LABORATORYCLIA [id number] [address] Urea nitrogen [Mass/Vol] 19 mg/dL Normal 9-24 [facility] Comment on above: Order Comment: Speci men Type: BLOOD SPECIMEN Performed By: #### 2 777-1, , ####[facility]ATORYCLIA [id number] [address] CBC panel Auto (Bld)on 06-04 Erythrocyte distribution width (RBC) [Ratio] 15.8 % High 11.5-15.0 [facility] Comment on above: Order Comment: Speci men Type: BLOOD SPECIMEN Performed By: #### 5 8410-2 ####[facility]ATORYCLIA [id number] [address] Hematocrit (Bld) [Volume fraction] 36.9 % Low 39.0-51.0 [facility] Comment on above: Order Comment: Speci men Type: BLOOD SPECIMEN Performed By: #### 5 8410-2 ####[facility]ATORYCLIA [id number] [address] Hemoglobin (Bld) [Mass/Vol] 11.2 g/dL Low 13.0-17.0 [facility] Comment on above: Order Comment: Speci men Type: BLOOD SPECIMEN Performed By: #### 5 8410-2 ####[facility]ATORYCLIA [id number] [address] MCH (RBC) [Entitic mass] 27.3 pg Normal 26.0-34.0 [facility] Comment on above: Order Comment: Speci men Type: BLOOD SPECIMEN Performed By: #### 5 8410-2 ####[facility]ATORYCLIA [id number] [address] MCHC (RBC) [Mass/Vol] 30.4 g/dL Low 30.5-36.0 [facility] Comment on above: Order Comment: Speci men Type: BLOOD SPECIMEN Performed By: #### 5 8410-2 ####[facility]ATORYCLIA [id number] [address] MCV (RBC) [Entitic vol] 89.8 fL Normal 80.0-100.0 [facility] Comment on above: Order Comment: Speci men Type: BLOOD SPECIMEN Performed By: #### 5 8410-2 ####[facility]ATORYCLIA [id number] [address] Nucleated RBC (Bld) [#/Vol] 10*3/uL Normal <0.01 [facility] Comment on above: Order Comment: Speci men Type: BLOOD SPECIMEN Performed By: #### 5 8410-2 ####[facility]ATORYCLIA [id number] [address] Platelet mean volume (Bld) [Entitic vol] 10.7 fL Normal 9.0-12.7 [facility] Comment on above: Order Comment: Speci men Type: BLOOD SPECIMEN Performed By: #### 5 8410-2 ####[facility]ATORYCLIA [id number] [address] Platelets (Bld) [#/Vol] 174 10*3/uL Normal 150-400 [facility] Comment on above: Order Comment: Speci men Type: BLOOD SPECIMEN Performed By: #### 5 8410-2 ####[facility]ATORYCLIA [id number] [address] RBC (Bld) [#/Vol] 4.11 10*6/uL Low 4.20-6.00 [facility] Comment on above: Order Comment: Speci men Type: BLOOD SPECIMEN Performed By: #### 5 8410-2 ####[facility]ATORYCLIA [id number] [address] WBC (Bld) [#/Vol] 8.29 10*3/uL Normal 3.70-11.00 [facility] Comment on above: Order Comment: Speci men Type: BLOOD SPECIMEN Performed By: #### 5 8410-2 ####[facility]ATORYCLIA [id number] [address] CONSULT PROGon 06-04-2021 CONSULT PROG Normal [facility] CT BRAIN WO IVCONon 06-04-19 CT BRAIN WO IVCON Normal [facility] CT CHEST W IVCON PEon 2021 CT CHEST W IVCON PE Normal [facility] Magnesium SerPl-mCncon 06-04 Magnesium [Mass/Vol] 2.2 mg/dL Normal 1.7-2.3 [facility] Comment on above: Order Comment: Speci men Type: BLOOD SPECIMEN Performed By: #### 2 777-1, 86285-7, 22323-3 ####[facility]ATORYCLIA [id number] [address] NT-proBNP SerPl-mCncon 06-04 Natriuretic peptide.B prohormone N-Terminal [Mass/Vol] 229 pg/mL High <125 [facility] Comment on above: Order Comment: Speci men Type: BLOOD SPECIMEN Performed By: #### 3 3762-6, 4091-5 ####[facility]ATORYCLIA [id number] [address] Phosphate SerPl-mCncon 06-04 Phosphate [Mass/Vol] 2.0 mg/dL Low 2.7-4.8 [facility] Comment on above: Order Comment: Speci men Type: BLOOD SPECIMEN Performed By: #### 2 777-1, 22247-9, 71204-8 ####[facility]ATORYCLIA [id number] [address] Vancomycin random [Mass/Vol] on 06-04-2021 Vancomycin [Mass/Vol] 35.2 ug/mL High 10.0-20.0 [facility] Comment on above: Order Comment: Speci men Type: BLOOD SPECIMEN Result Comment: Refe rence ranges and high/low indicator flags are provided as general guidelines only. The treating physician must determine appropriate target levels/dosing based on the specific clinical situation. Performed By: #### 3 3762-6, 4091-5 ####[facility]ATORYCLIA [id number] [address] XR ABDOMEN 1V SUPINEon 06-04 XR ABDOMEN 1V SUPINE Normal [facility] ALLIED HEALTHon 06-03-2021 ALLIED HEALTH Normal [facility] ARTERIAL BLOOD GASESon 06-03 Base excess Calc (Bld) [Moles/Vol] 5 mmol/L High 0-2 [facility] Comment on above: Order Comment: Speci men Type: ARTERIAL BLOOD SPECIMEN Performed By: #### A LLBG ####[facility]ATORYCLIA [id number] [address] Body temperature 99.5 [degF] Normal [facility] Comment on above: Order Comment: Speci men Type: ARTERIAL BLOOD SPECIMEN Performed By: #### A LLBG ####[facility]ATORYCLIA [id number] [address] CALCIUM IONIZED, PH CORRECTED 1.18 mmol/L Normal 1.08-1.30 [facility] Comment on above: Order Comment: Speci men Type: ARTERIAL BLOOD SPECIMEN Performed By: #### A LLBG ####[facility]ATORYCLIA [id number] [address] Calcium.ionized (BldV) [Mass/Vol] 1.16 mmol/L Normal 1.08-1.30 [facility] Comment on above: Order Comment: Speci men Type: ARTERIAL BLOOD SPECIMEN Performed By: #### A LLBG ####[facility]ATORYCLIA [id number] [address] Carboxyhemoglobin (BldA) [Mass fraction] 1.2 % Normal 0.0-2.0 [facility] Comment on above: Order Comment: Speci men Type: ARTERIAL BLOOD SPECIMEN Result Comment: Carb oxyhemoglobin Reference Range for Smokers: 2.0-8.0% Performed By: #### A LLBG ####[facility]ATORYCLIA [id number] [address] CO2 (Bld) [Partial pressure] 45 mm Hg Normal 36-46 [facility] Comment on above: Order Comment: Speci men Type: ARTERIAL BLOOD SPECIMEN Performed By: #### A LLBG ####[facility]ORYCLIA [id number] [address] CO2 [Moles/Vol] 26.9 mmol/L Normal 22-28 [facility] Comment on above: Order Comment: Speci men Type: ARTERIAL BLOOD SPECIMEN Performed By: #### A LLBG ####[facility]ATORYCLIA [id number] [address] CO2 adjusted to patient's actual temperature (Bld) [Partial pressure] 47 mmHg High 36-46 [facility] Comment on above: Order Comment: Speci men Type: ARTERIAL BLOOD SPECIMEN Performed By: #### A LLBG ####[facility]ATORYCLIA [id number] [address] [place] Glucose [Mass/Vol] 141 mg/dL High 60-105 [facility] Comment on above: Order Comment: Speci men Type: ARTERIAL BLOOD SPECIMEN Performed By: #### A LLBG ####[facility]ORYCLIA [id number] [address] [place] HCO3 (Bld) [Moles/Vol] 30 mmol/L High 22-26 [facility] Comment on above: Order Comment: Speci men Type: ARTERIAL BLOOD SPECIMEN Performed By: #### A LLBG ####[facility]ATORYCLIA [id number] [address] [facility] Hematocrit (Bld) [Volume fraction] 35.8 % Low 39.0-51.0 [facility] Comment on above: Order Comment: Speci men Type: ARTERIAL BLOOD SPECIMEN Performed By: #### A LLBG ####[facility]ATORYCLIA [id number] [address] [place] Hemoglobin (Bld) [Mass/Vol] 11.6 g/dL Low 13.0-17.0 [facility] Comment on above: Order Comment: Speci men Type: ARTERIAL BLOOD SPECIMEN Performed By: #### A LLBG ####[facility]ORYCLIA [id number] [address] Methemoglobin (Bld) [Mass fraction] % Normal 0.0-1.5 [facility] Comment on above: Order Comment: Speci men Type: ARTERIAL BLOOD SPECIMEN Performed By: #### A LLBG ####[facility]ATORYCLIA [id number] [address] O2 THERAPY Ventilator Normal [facility] Comment on above: Order Comment: Speci men Type: ARTERIAL BLOOD SPECIMEN Performed By: #### A LLBG ####[facility]ATORYCLIA [id number] [address] [place] Oxygen (Bld) [Partial pressure] 69 mm Hg Low 85-95 [facility] Comment on above: Order Comment: Speci men Type: ARTERIAL BLOOD SPECIMEN Performed By: #### A LLBG ####[facility]ORYCLIA [id number] [address] [place] Oxygen adjusted to patient's actual temperature (Bld) [Partial pressure] 70.8 mmHg Low 85-95 [facility] Comment on above: Order Comment: Speci men Type: ARTERIAL BLOOD SPECIMEN Performed By: #### A LLBG ####[facility]ATORYCLIA [id number] [address] [place] OXYGEN SATURATION, ARTERIAL 94 % Low 95-98 [facility] Comment on above: Order Comment: Speci men Type: ARTERIAL BLOOD SPECIMEN Performed By: #### A LLBG ####[facility]ATORYCLIA [id number] [address] Oxyhemoglobin (BldA) [Mass fraction] 93 % Low 95-98 [facility] Comment on above: Order Comment: Speci men Type: ARTERIAL BLOOD SPECIMEN Performed By: #### A LLBG ####[facility]ATORYCLIA [id number] [address] pH (Bld) 7.43 [pH] Normal 7.35-7.45 [facility] Comment on above: Order Comment: Speci men Type: ARTERIAL BLOOD SPECIMEN Performed By: #### A LLBG ####[facility]ATORYCLIA [id number] [address] pH adjusted to patient's actual temperature (Bld) 7.43 Normal 7.35-7.45 [facility] Comment on above: Order Comment: Speci men Type: ARTERIAL BLOOD SPECIMEN Performed By: #### A LLBG ####[facility]ATORYCLIA [id number] [address] Potassium [Moles/Vol] 3.1 mmol/L Low 3.5-5.0 [facility] Comment on above: Order Comment: Speci men Type: ARTERIAL BLOOD SPECIMEN Performed By: #### A LLBG ####[facility]ATORYCLIA [id number] [address] Sodium [Moles/Vol] 145 mmol/L High 136-144 [facility] Comment on above: Order Comment: Speci men Type: ARTERIAL BLOOD SPECIMEN Performed By: #### A LLBG ####[facility]ATORYCLIA [id number] [address] ASPERGILLUS GALACTOMANNAN SE RUMon 06-03-2021 Galactomannan [...] Performed By: #### A SGALS ####[facility] LABCLIA [id number] [facility] [place] [id number] [place] [facility] Galactomannan Ag IA Qn <0.50 Normal [facility] Comment on above: Order Comment: Speci men Type: BLOOD SPECIMEN Result Comment: Inde x Values are Interpreted as Follows:Negative specimens <0.50Positive specimens >=0.50 Performed By: #### A SGALS ####[facility] LABCLIA [id number] [facility] [address] [address] [place] Basic metabolic 2000 panelon 06-03-2021 Anion gap [Moles/Vol] 8 mmol/L Low 9-18 [facility] Comment on above: Order Comment: Speci men Type: BLOOD SPECIMEN Performed By: #### 1 9123-9, 2777-, 50545-5 ####[facility]ATORYCLIA [id number] [place] [address] [place] Calcium [Mass/Vol] 8.0 mg/dL Low 8.5-10.2 [facility] Comment on above: Order Comment: Speci men Type: BLOOD SPECIMEN Performed By: #### 1 9123-9, 2777-1, 65088-7 ####[facility]ATORYCLIA [id number] [place] [address] [place] Chloride [Moles/Vol] 110 mmol/L High 97-105 [facility] Comment on above: Order Comment: Speci men Type: BLOOD SPECIMEN Performed By: #### 1 9123-9, 2777-1, 45402-3 ####[facility]ATORYCLIA [id number] [place] [address] [place] CO2 [Moles/Vol] 28 mmol/L Normal 22-30 [facility] Comment on above: Order Comment: Speci men Type: BLOOD SPECIMEN Performed By: #### 1 9123-9, 2777-1, 29540-2 ####[facility]ATORYCLIA [id number] [place] [address] [place] Creatinine [Mass/Vol] 0.75 mg/dL Normal 0.73-1.22 [facility] Comment on above: Order Comment: Speci men Type: BLOOD SPECIMEN Performed By: #### 1 9123-9, 2777-, 22291-1 ####[facility]ATORYCLIA [id number] [address] [place] GFR/1.73 sq M.predicted MDRD (S/P/Bld) [Vol rate/Area] mL/min/{1.73_m2} Normal [facility] Comment on above: [...] GFR. Performed By: #### 1 9123-9, 2777-, 34102-0 ####[facility]ATORYCLIA [id number] [place] [address] [place] Glucose [Mass/Vol] 141 mg/dL High 74-99 [facility] Comment on above: Order Comment: Spec men Type: BLOOD SPECIMEN Result Comment: The [place] [employer] (ADA) provides guidance for cutoff [...] Standards of Medical Care in Diabetes 2016, [place] [employer]. Diabetes Care. 2016.39(Suppl 1). Performed By: #### 1 9123-9, 2777-, 59468-8 ####[facility]ATORYCLIA [id number] [address] [facility] Potassium [Moles/Vol] 3.3 mmol/L Low 3.7-5.1 [facility] Comment on above: Order Comment: Speci men Type: BLOOD SPECIMEN Performed By: #### 1 9123-9, 27711-04, 17943-6 ####[facility]ATORYCLIA [id number] [address] Sodium [Moles/Vol] 146 mmol/L High 136-144 [facility] Comment on above: Order Comment: Speci men Type: BLOOD SPECIMEN Performed By: #### 1 9123-9, 27711-04, 26055-2 ####[facility]ATORYCLIA [id number] [address] Urea nitrogen [Mass/Vol] 10 mg/dL Normal 9-24 [facility] Comment on above: Order Comment: Speci men Type: BLOOD SPECIMEN Performed By: #### 1 9123-9, 2777, 83891-5 ####[facility]ATORYCLIA [id number] [address] [facility] CASE MANAGEMon 06-03-2021 CASE MANAGEM Normal [facility] CBC panel Auto (Bld)on 06-03 Erythrocyte distribution width (RBC) [Ratio] 15.6 % High 11.5-15.0 [facility] Comment on above: Order Comment: Speci men Type: BLOOD SPECIMEN Performed By: #### 5 8410-2 ####[facility]ATORYCLIA [id number] [address] Hematocrit (Bld) [Volume fraction] 36.9 % Low 39.0-51.0 [facility] Comment on above: Order Comment: Speci men Type: BLOOD SPECIMEN Performed By: #### 5 8410-2 ####[facility]ATORYCLIA [id number] [address] Hemoglobin (Bld) [Mass/Vol] 11.1 g/dL Low 13.0-17.0 [facility] Comment on above: Order Comment: Speci men Type: BLOOD SPECIMEN Performed By: #### 5 8410-2 ####[facility]ATORYCLIA [id number] [address] MCH (RBC) [Entitic mass] 27.0 pg Normal 26.0-34.0 [facility] Comment on above: Order Comment: Speci men Type: BLOOD SPECIMEN Performed By: #### 5 8410-2 ####[facility]ATORYCLIA [id number] [address] MCHC (RBC) [Mass/Vol] 30.1 g/dL Low 30.5-36.0 [facility] Comment on above: Order Comment: Speci men Type: BLOOD SPECIMEN Performed By: #### 5 8410-2 ####[facility]ATORYCLIA [id number] [address] MCV (RBC) [Entitic vol] 89.8 fL Normal 80.0-100.0 [facility] Comment on above: Order Comment: Speci men Type: BLOOD SPECIMEN Performed By: #### 5 8410-2 ####[facility]ATORYCLIA [id number] [address] Nucleated RBC (Bld) [#/Vol] 10*3/uL Normal <0.01 [facility] Comment on above: Order Comment: Speci men Type: BLOOD SPECIMEN Performed By: #### 5 8410-2 ####[facility]ATORYCLIA [id number] [address] Platelet mean volume (Bld) [Entitic vol] 10.5 fL Normal 9.0-12.7 [facility] Comment on above: Order Comment: Speci men Type: BLOOD SPECIMEN Performed By: #### 5 8410-2 ####[facility]ATORYCLIA [id number] [address] [facility] Platelets (Bld) [#/Vol] 196 10*3/uL Normal 150-400 [facility] Comment on above: Order Comment: Speci men Type: BLOOD SPECIMEN Performed By: #### 5 8410-2 ####[facility]ATORYCLIA [id number] [address] RBC (Bld) [#/Vol] 4.11 10*6/uL Low 4.20-6.00 [facility] Comment on above: Order Comment: Speci men Type: BLOOD SPECIMEN Performed By: #### 5 8410-2 ####[facility]ATORYCLIA [id number] [address] [facility] WBC (Bld) [#/Vol] 8.18 10*3/uL Normal 3.70-11.00 [facility] Comment on above: Order Comment: Speci men Type: BLOOD SPECIMEN Performed By: #### 5 8410-2 ####[facility]ATORYCLIA [id number] [address] [facility] CONSULTon 06-03-2021 CONSULT Normal [facility] CONSULT PROGon 06-03-2021 CONSULT PROG Normal [facility] Gas and Carbon monoxide pane l (BldV)on 06-03-2021 Base excess Calc (BldV) [Moles/Vol] 1.4 mmol/L Normal 0-2 [facility] Comment on above: Order Comment: Speci men Type: VENOUS BLOOD SPECIMEN Performed By: #### 2 4344-4 ####[facility]ATORYCLIA [id number] [address] Body temperature 98.42 [degF] Normal [facility] Comment on above: Order Comment: Speci men Type: VENOUS BLOOD SPECIMEN Performed By: #### 2 4344-4 ####[facility]ATORYCLIA [id number] [address] CALCIUM IONIZED, PH CORRECTED 1.09 mmol/L Normal 1.08-1.30 [facility] Comment on above: Order Comment: Speci men Type: VENOUS BLOOD SPECIMEN Performed By: #### 2 4344-4 ####[facility]ORYCLIA [id number] [address] Calcium.ionized (BldV) [Mass/Vol] 1.12 mmol/L Normal 1.08-1.30 [facility] Comment on above: Order Comment: Speci men Type: VENOUS BLOOD SPECIMEN Performed By: #### 2 4344-4 ####[facility]ATORYCLIA [id number] [address] Carboxyhemoglobin (BldV) [Mass fraction] 1.7 % Normal 0.0-2.0 [facility] Comment on above: Order Comment: Speci men Type: VENOUS BLOOD SPECIMEN Result Comment: Carb oxyhemoglobin Reference Range for Smokers: 2.0-8.0% Performed By: #### 2 4344-4 ####[facility]ORYCLIA [id number] [address] CO2 (BldV) [Partial pressure] 50 mm[Hg] Normal 42-55 [facility] Comment on above: Order Comment: Speci men Type: VENOUS BLOOD SPECIMEN Performed By: #### 2 4344-4 ####[facility]ORYCLIA [id number] [address] CO2 [Moles/Vol] 24.9 mmol/L Low 25-29 [facility] Comment on above: Order Comment: Speci men Type: VENOUS BLOOD SPECIMEN Performed By: #### 2 4344-4 ####[facility]ORYCLIA [id number] [address] [place] CO2 adjusted to patient's actual temperature (BldV) [Partial pressure] 50 mmHg Normal 42-55 [facility] Comment on above: Order Comment: Speci men Type: VENOUS BLOOD SPECIMEN Performed By: #### 2 4344-4 ####[facility]ATORYCLIA [id number] [address] [place] FIO2 30 % Normal [facility] Comment on above: Order Comment: Speci men Type: VENOUS BLOOD SPECIMEN Performed By: #### 2 4344-4 ####[facility]ORYCLIA [id number] [address] Glucose [Mass/Vol] 191 mg/dL High 60-105 [facility] Comment on above: Order Comment: Speci men Type: VENOUS BLOOD SPECIMEN Performed By: #### 2 4344-4 ####[facility]ORYCLIA [id number] [address] HCO3 (Bld) [Moles/Vol] 27.1 mmol/L Normal 24-28 [facility] Comment on above: Order Comment: Speci men Type: VENOUS BLOOD SPECIMEN Performed By: #### 2 4344-4 ####[facility]ORYCLIA [id number] [address] Hematocrit (Bld) [Volume fraction] 36.2 % Low 39.0-51.0 [facility] Comment on above: Order Comment: Speci men Type: VENOUS BLOOD SPECIMEN Performed By: #### 2 4344-4 ####[facility]ORYCLIA [id number] [address] Hemoglobin (Bld) [Mass/Vol] 11.8 g/dL Low 13.0-17.0 [facility] Comment on above: Order Comment: Speci men Type: VENOUS BLOOD SPECIMEN Performed By: #### 2 4344-4 ####[facility]ORYCLIA [id number] [address] INHALED TIDAL VOLUME (ML) 530 Normal [facility] Comment on above: Order Comment: Speci men Type: VENOUS BLOOD SPECIMEN Performed By: #### 2 4344-4 ####[facility]ATORYCLIA [id number] [place], [place] [id number] [place] [address] [place] Methemoglobin (Bld) [Mass fraction] % Normal 0.0-1.5 [facility] Comment on above: Order Comment: Speci men Type: VENOUS BLOOD SPECIMEN Performed By: #### 2 4344-4 ####[facility]ATORYCLIA [id number] [place], [place] [address] [place] [address] [place] O2 THERAPY Ventilator Normal [facility] Comment on above: Order Comment: Speci men Type: VENOUS BLOOD SPECIMEN Performed By: #### 2 4344-4 ####[facility]ORYCLIA [id number] [place], [place] [id number] [place] [address] Oxygen (BldV) [Partial pressure] 69 mm[Hg] High 35-45 [facility] Comment on above: Order Comment: Speci men Type: VENOUS BLOOD SPECIMEN Performed By: #### 2 4344-4 ####[facility]ORYCLIA [id number] [place], [place] [id number] [place] [address] Oxygen adjusted to patient's actual temperature (BldV) [Partial pressure] 68.8 mmHg High 35-45 [facility] Comment on above: Order Comment: Speci men Type: VENOUS BLOOD SPECIMEN Performed By: #### 2 4344-4 ####[facility]ORYCLIA [id number] [place], [place] [id number] [place] [address] [place] Oxygen saturation in Blood 92.4 % High 60-85 [facility] Comment on above: Order Comment: Speci men Type: VENOUS BLOOD SPECIMEN Performed By: #### 2 4344-4 ####[facility]ORYCLIA [id number] [place], [place] [id number] [place] [address] [place] Oxyhemoglobin (BldV) [Mass fraction] 90 % High 60-85 [facility] Comment on above: Order Comment: Speci men Type: VENOUS BLOOD SPECIMEN Performed By: #### 2 4344-4 ####[facility]ORYCLIA [id number] [address] PEEP/CPAP 8 cmH2O Normal [facility] Comment on above: Order Comment: Speci men Type: VENOUS BLOOD SPECIMEN Performed By: #### 2 4344-4 ####[facility]ORYCLIA [id number] [address] pH (BldV) 7.35 [pH] Normal 7.32-7.42 [facility] Comment on above: Order Comment: Speci men Type: VENOUS BLOOD SPECIMEN Performed By: #### 2 4344-4 ####[facility]ORYCLIA [id number] [address] pH adjusted to patient's actual temperature (BldV) 7.35 Normal 7.32-7.42 [facility] Comment on above: Order Comment: Speci men Type: VENOUS BLOOD SPECIMEN Performed By: #### 2 4344-4 ####[facility]ORYCLIA [id number] [address] Potassium [Moles/Vol] 3.6 mmol/L Normal 3.5-5.0 [facility] Comment on above: Order Comment: Speci men Type: VENOUS BLOOD SPECIMEN Performed By: #### 2 4344-4 ####[facility]ORYCLIA [id number] [address] SET VENTILATOR RESPIRATORY RATE (BPM) 18 BPM Normal [facility] Comment on above: Order Comment: Speci men Type: VENOUS BLOOD SPECIMEN Performed By: #### 2 4344-4 ####[facility]ORYCLIA [id number] [address] Sodium [Moles/Vol] 141 mmol/L Normal 136-144 [facility] Comment on above: Order Comment: Speci men Type: VENOUS BLOOD SPECIMEN Performed By: #### 2 4344-4 ####[facility]ORYCLIA [id number] [address] HIV 1+2 Ab IA Qlon 2 HIV 1 and 2 Ab IA.rapid Nom Normal [facility] Comment on above: Order Comment: Speci men Type: BLOOD SPECIMEN Result Comment: Test not indicated. Performed By: #### 3 1201-7, TOXMG ####[facility]ATORYCLIA [id number] [address] HIV 1+2 Ab+HIV1 p24 Ag IA Ql Non-Reactive Normal Nonreactive [facility] Comment on above: Order Comment: Speci men Type: BLOOD SPECIMEN Result Comment: [place] Rev. Code 3701.243(E): This information has been [...] diagnoses. Performed By: #### 3 1201-7, TOXMG ####[facility]ORATORYCLIA [id number] [address] HIVINT Normal [facility] Comment on above: Order Comment: Speci men Type: BLOOD SPECIMEN Result Comment: No e vidence of HIV-1 or HIV-2 infection. Should recent infection be suspected, repeat testing may be considered 2-3 weeks after this draw. Performed By: #### 3 1201-7, TOXMG ####[facility]ORYCLIA [id number] [address] [place] Magnesium SerPl-mCncon 06-03 Magnesium [Mass/Vol] 1.9 mg/dL Normal 1.7-2.3 [facility] Comment on above: Order Comment: Speci men Type: BLOOD SPECIMEN Performed By: #### 1 9123-9, 2777-1, 88297-3 ####[facility]ORYCLIA [id number] [address] [place] NUTRITIONon 06-03-2021 NUTRITION Normal [facility] Phosphate SerPl-mCncon 06-03 Phosphate [Mass/Vol] 1.9 mg/dL Low 2.7-4.8 [facility] Comment on above: Order Comment: Speci men Type: BLOOD SPECIMEN Performed By: #### 1 9123-9, 2777-1, 55164-5 ####[facility]ATORYCLIA [id number] [address] TOXOPLASMOSIS IGM AND IGG AB on 06-03-2021 TOXO IGG QUAL Negative Normal Negative [facility] Comment on above: Order Comment: Speci men Type: BLOOD SPECIMEN Result Comment: No s erological evidence of past exposure to Toxoplasma gondii. Cannot exclude recent infection if the specimen collected within 3-4 weeks after infection.Negative <6.4 IU/mLEquivocal 6.4-9.9 IU/mLPositive >=10.0 IU/mL Performed By: #### 3 1201-7, TOXMG ####[facility]ORYCLIA [id number] [address] TOXO IGM QUAL Negative Normal Negative [facility] Comment on above: Order Comment: Speci men Type: BLOOD SPECIMEN Result Comment: No s erological evidence of recent exposure to Toxoplasma gondii.Negative <0.9 IndexEquivocal 0.9-0.99 IndexPositive >=1.0 Index Performed By: #### 3 1201-7, TOXMG ####[facility]ORYCLIA [id number] [address] [place] US DVT LOWER BILon US DVT LOWER RAINER Normal [facility] XR CHEST 1V FRONTALon 2021 XR CHEST 1V FRONTAL Normal [facility] ARTERIAL BLOOD GASESon 06-02 Base excess Calc (Bld) [Moles/Vol] 2 mmol/L Normal 0-2 [facility] Comment on above: Order Comment: Speci men Type: ARTERIAL BLOOD SPECIMEN Performed By: #### A LLBG ####[facility]ORYCLIA [id number] [address] Body temperature 99.32 [degF] Normal [facility] Comment on above: Order Comment: Speci men Type: ARTERIAL BLOOD SPECIMEN Performed By: #### A LLBG ####[facility]ORYCLIA [id number] [address] CALCIUM IONIZED, PH CORRECTED 1.15 mmol/L Normal 1.08-1.30 [facility] Comment on above: Order Comment: Speci men Type: ARTERIAL BLOOD SPECIMEN Performed By: #### A LLBG ####[facility]ORYCLIA [id number] [address] Calcium.ionized (BldV) [Mass/Vol] 1.13 mmol/L Normal 1.08-1.30 [facility] Comment on above: Order Comment: Speci men Type: ARTERIAL BLOOD SPECIMEN Performed By: #### A LLBG ####[facility]ORYCLIA [id number] [address] OF [facility] Carboxyhemoglobin (BldA) [Mass fraction] 1.4 % Normal 0.0-2.0 [facility] Comment on above: Order Comment: Speci men Type: ARTERIAL BLOOD SPECIMEN Result Comment: Carb oxyhemoglobin Reference Range for Smokers: 2.0-8.0% Performed By: #### A LLBG ####[facility]ATORYCLIA [id number] [address] CO2 (Bld) [Partial pressure] 39 mm Hg Normal 36-46 [facility] Comment on above: Order Comment: Speci men Type: ARTERIAL BLOOD SPECIMEN Performed By: #### A LLBG ####[facility]ORYCLIA [id number] [address] [place] CO2 [Moles/Vol] 23.4 mmol/L Normal 22-28 [facility] Comment on above: Order Comment: Speci men Type: ARTERIAL BLOOD SPECIMEN Performed By: #### A LLBG ####[facility]ORYCLIA [id number] [address] [place] CO2 adjusted to patient's actual temperature (Bld) [Partial pressure] 40 mmHg Normal 36-46 [facility] Comment on above: Order Comment: Speci men Type: ARTERIAL BLOOD SPECIMEN Performed By: #### A LLBG ####[facility]ORYCLIA [id number] [address] Glucose [Mass/Vol] 156 mg/dL High 60-105 [facility] Comment on above: Order Comment: Speci men Type: ARTERIAL BLOOD SPECIMEN Performed By: #### A LLBG ####[facility]ATORYCLIA [id number] [address] HCO3 (Bld) [Moles/Vol] 26 mmol/L Normal 22-26 [facility] Comment on above: Order Comment: Speci men Type: ARTERIAL BLOOD SPECIMEN Performed By: #### A LLBG ####[facility]ORYCLIA [id number] [address] Hematocrit (Bld) [Volume fraction] 33.9 % Low 39.0-51.0 [facility] Comment on above: Order Comment: Speci men Type: ARTERIAL BLOOD SPECIMEN Performed By: #### A LLBG ####[facility]ORYCLIA [id number] [address] Hemoglobin (Bld) [Mass/Vol] 11.0 g/dL Low 13.0-17.0 [facility] Comment on above: Order Comment: Speci men Type: ARTERIAL BLOOD SPECIMEN Performed By: #### A LLBG ####[facility]ORYCLIA [id number] [address] Methemoglobin (Bld) [Mass fraction] % Normal 0.0-1.5 [facility] Comment on above: Order Comment: Speci men Type: ARTERIAL BLOOD SPECIMEN Performed By: #### A LLBG ####[facility]ORYCLIA [id number] [address] O2 THERAPY Ventilator Normal [facility] Comment on above: Order Comment: Speci men Type: ARTERIAL BLOOD SPECIMEN Performed By: #### A LLBG ####[facility]ORYCLIA [id number] [address] Oxygen (Bld) [Partial pressure] 70 mm Hg Low 85-95 [facility] Comment on above: Order Comment: Speci men Type: ARTERIAL BLOOD SPECIMEN Performed By: #### A LLBG ####[facility]ORYCLIA [id number] [address] Oxygen adjusted to patient's actual temperature (Bld) [Partial pressure] 72.2 mmHg Low 85-95 [facility] Comment on above: Order Comment: Speci men Type: ARTERIAL BLOOD SPECIMEN Performed By: #### A LLBG ####[facility]ATORYCLIA [id number] [address] OXYGEN SATURATION, ARTERIAL 96 % Normal 95-98 [facility] Comment on above: Order Comment: Speci men Type: ARTERIAL BLOOD SPECIMEN Performed By: #### A LLBG ####[facility]ATORYCLIA [id number] [address] Oxyhemoglobin (BldA) [Mass fraction] 94 % Low 95-98 [facility] Comment on above: Order Comment: Speci men Type: ARTERIAL BLOOD SPECIMEN Performed By: #### A LLBG ####[facility]ATORYCLIA [id number] [address] [place] [facility] pH (Bld) 7.43 [pH] Normal 7.35-7.45 [facility] Comment on above: Order Comment: Speci men Type: ARTERIAL BLOOD SPECIMEN Performed By: #### A LLBG ####[facility]ORYCLIA [id number] [address] pH adjusted to patient's actual temperature (Bld) 7.42 Normal 7.35-7.45 [facility] Comment on above: Order Comment: Speci men Type: ARTERIAL BLOOD SPECIMEN Performed By: #### A LLBG ####[facility]ORYCLIA [id number] [address] Potassium [Moles/Vol] 2.6 mmol/L Low 3.5-5.0 [facility] Comment on above: Order Comment: Speci men Type: ARTERIAL BLOOD SPECIMEN Performed By: #### A LLBG ####[facility]ATORYCLIA [id number] [address] Sodium [Moles/Vol] 142 mmol/L Normal 136-144 [facility] Comment on above: Order Comment: Speci men Type: ARTERIAL BLOOD SPECIMEN Performed By: #### A LLBG ####[facility]ATORYCLIA [id number] [address] [place] Ammonia Plas-sCncon 06-02-19 22 Ammonia (P) [Moles/Vol] 20 umol/L Normal 16-60 [facility] Comment on above: Order Comment: Speci men Type: BLOOD SPECIMEN Performed By: #### 1 6362-6 ####[facility]ATORYCLIA [id number] [address] [place] [facility] Bacteria CSF Culton 06-02-19 22 Bacteria identified Cx Nom (CSF) CULTURE, CSF: No growth 14 days GRAM STAIN: No organisms seen Rare Polymorphonuclear leukocytes Gram stain performed on cytospun specimen. Normal [facility] Comment on above: Performed By: #### 6 06-4 ####[facility]ATORYCLIA [id number] [address] [place] Basic metabolic 2000 panelon 06-02-2021 Anion gap [Moles/Vol] 10 mmol/L Normal 9-18 [facility] Comment on above: Order Comment: Speci men Type: BLOOD SPECIMEN Performed By: #### 2 4321-2, , 2776-05 ####[facility]ORYCLIA [id number] [address] [place] [facility] Calcium [Mass/Vol] 8.1 mg/dL Low 8.5-10.2 [facility] Comment on above: Order Comment: Speci men Type: BLOOD SPECIMEN Performed By: #### 2 4321-2, 87756-2, 2776- ####[facility]ORYCLIA [id number] [address] [place] [facility] Chloride [Moles/Vol] 108 mmol/L High 97-105 [facility] Comment on above: Order Comment: Speci men Type: BLOOD SPECIMEN Performed By: #### 2 4321-2, , 2776-05 ####[facility]ORYCLIA [id number] [address] CO2 [Moles/Vol] 24 mmol/L Normal 22-30 [facility] Comment on above: Order Comment: Speci men Type: BLOOD SPECIMEN Performed By: #### 2 4321-2, , 2776-05 ####[facility]CL[facility] [id number] [address] Creatinine [Mass/Vol] 0.78 mg/dL Normal 0.73-1.22 [facility] Comment on above: Order Comment: Speci men Type: BLOOD SPECIMEN Performed By: #### 2 4321-2, , 2776-05 ####[facility]ORYCLIA [id number] [address] [place] GFR/1.73 sq M.predicted MDRD (S/P/Bld) [Vol rate/Area] mL/min/{1.73_m2} Normal [facility] Comment on above: [...] Performed By: #### 2 4321-2, , 2776-05 ####[facility]ATORYCLIA [id number] [place] [address] [place] Glucose [Mass/Vol] 162 mg/dL High 74-99 [facility] Comment on above: Order Comment: Speci men Type: BLOOD SPECIMEN Result Comment: The [place] [employer] (ADA) provides guidance for cutoff [...] Standards of Medical Care in Diabetes 2016, [place] [employer]. Diabetes Care. 2016.39(Suppl 1). Performed By: #### 2 1-2, , 2776-05 ####[facility]ATORYCLIA [id number] [address] [place] Potassium [Moles/Vol] 2.7 mmol/L Low 3.7-5.1 [facility] Comment on above: Order Comment: Speci men Type: BLOOD SPECIMEN Performed By: #### 2 1-2, , 2776-05 ####[facility]ORYCLIA [id number] [address] [place] Sodium [Moles/Vol] 142 mmol/L Normal 136-144 [facility] Comment on above: Order Comment: Speci men Type: BLOOD SPECIMEN Performed By: #### 2 1-2, , 2776-05 ####[facility]ORYCLIA [id number] [place] [address] [place] Urea nitrogen [Mass/Vol] 12 mg/dL Normal 9-24 [facility] Comment on above: Order Comment: Speci men Type: BLOOD SPECIMEN Performed By: #### 2 1-2, , 2776-05 ####[facility]ORYCLIA [id number] [address] CBC panel Auto (Bld)on 06-02 Erythrocyte distribution width (RBC) [Ratio] 15.0 % Normal 11.5-15.0 [facility] Comment on above: Order Comment: Speci men Type: BLOOD SPECIMEN Performed By: #### 5 8410-2 ####[facility]ORYCLIA [id number] [address] Hematocrit (Bld) [Volume fraction] 34.3 % Low 39.0-51.0 [facility] Comment on above: Order Comment: Speci men Type: BLOOD SPECIMEN Performed By: #### 5 8410-2 ####[facility]ORYCLIA [id number] [address] Hemoglobin (Bld) [Mass/Vol] 10.3 g/dL Low 13.0-17.0 [facility] Comment on above: Order Comment: Speci men Type: BLOOD SPECIMEN Performed By: #### 5 8410-2 ####[facility]ORYCLIA [id number] [address] MCH (RBC) [Entitic mass] 27.0 pg Normal 26.0-34.0 [facility] Comment on above: Order Comment: Speci men Type: BLOOD SPECIMEN Performed By: #### 5 8410-2 ####[facility]ORYCLIA [id number] [address] MCHC (RBC) [Mass/Vol] 30.0 g/dL Low 30.5-36.0 [facility] Comment on above: Order Comment: Speci men Type: BLOOD SPECIMEN Performed By: #### 5 8410-2 ####[facility]ORYCLIA [id number] [address] MCV (RBC) [Entitic vol] 90.0 fL Normal 80.0-100.0 [facility] Comment on above: Order Comment: Speci men Type: BLOOD SPECIMEN Performed By: #### 5 8410-2 ####[facility]ATORYCLIA [id number] [address] Nucleated RBC (Bld) [#/Vol] 10*3/uL Normal <0.01 [facility] Comment on above: Order Comment: Speci men Type: BLOOD SPECIMEN Performed By: #### 5 8410-2 ####[facility]ATORYCLIA [id number] [address] Platelet mean volume (Bld) [Entitic vol] 10.2 fL Normal 9.0-12.7 [facility] Comment on above: Order Comment: Speci men Type: BLOOD SPECIMEN Performed By: #### 5 8410-2 ####[facility]ATORYCLIA [id number] [address] Platelets (Bld) [#/Vol] 194 10*3/uL Normal 150-400 [facility] Comment on above: Order Comment: Speci men Type: BLOOD SPECIMEN Performed By: #### 5 8410-2 ####[facility]ATORYCLIA [id number] [address] [place] [facility] RBC (Bld) [#/Vol] 3.81 10*6/uL Low 4.20-6.00 [facility] Comment on above: Order Comment: Speci men Type: BLOOD SPECIMEN Performed By: #### 5 8410-2 ####[facility]ORYCLIA [id number] [address] [place] [facility] WBC (Bld) [#/Vol] 9.22 10*3/uL Normal 3.70-11.00 [facility] Comment on above: Order Comment: Speci men Type: BLOOD SPECIMEN Performed By: #### 5 8410-2 ####[facility]ATORYCLIA [id number] [address] CONSULT PROGon 06-02-2021 CONSULT PROG Normal [facility] CSF MANUAL DIFFon 06-02-2021 DIF TTL, CSF 25 cells counted Normal [facility] Comment on above: Order Comment: Speci men Type: CEREBROSPINAL FLUID Performed By: #### 3 4563-7, [id number], [id number] ####[facility]ORYCLIA [id number] [address] [place] LYMPH%, CSF 4 % Low 50-90 [facility] Comment on above: Order Comment: Speci men Type: CEREBROSPINAL FLUID Performed By: #### 3 4563-7, [id number], [id number] ####[facility]ORYCLIA [id number] [address] [place] MACRO%, CSF 4 % High <1 [facility] Comment on above: Order Comment: Speci men Type: CEREBROSPINAL FLUID Performed By: #### 3 4563-7, [id number], [id number] ####[facility]ORYCLIA [id number] [address] [place] MONO%, CSF 20 % Normal 10-50 [facility] Comment on above: Order Comment: Speci men Type: CEREBROSPINAL FLUID Performed By: #### 3 4563-7, [id number], [id number] ####[facility]ORYCLIA [id number] [address] [place] NEUT%, CSF 72 % High 0-3 [facility] Comment on above: Order Comment: Speci men Type: CEREBROSPINAL FLUID Performed By: #### 3 4563-7, [id number], [id number] ####[facility]ORYCLIA [id number] [address] CSF PATHOLOGIST INTERP (LAB REFLEX ORDER-NO BILL)on 06-02-2021 CSF STAFF REVIEW Negative [facility] Comment on above: Order Comment: Speci men Type: CEREBROSPINAL FLUID Performed By: #### 3 4563-7, [id number], [id number] ####[facility]ORYCLIA [id number] [address] Pathologist name Reviewed by Amador Stevens MD [facility] Comment on above: Order Comment: Speci men Type: CEREBROSPINAL FLUID Performed By: #### 3 4563-7, [id number], [id number] ####[facility]ORYCLIA [id number] [address] Cell count panel (CSF)on Clarity (CSF) Clear Normal Clear [facility] Comment on above: Order Comment: Speci men Type: CEREBROSPINAL FLUID Performed By: #### 3 4563-7, [id number], [id number] ####[facility]ORYCLIA [id number] [address] Clarity (Unsp spec) Not Indicated Normal Clear [facility] Comment on above: Order Comment: Speci men Type: CEREBROSPINAL FLUID Performed By: #### 3 4563-7, [id number], [id number] ####[facility]ORYCLIA [id number] [address] Color (CSF) Colorless Normal Colorless [facility] Comment on above: Order Comment: Speci men Type: CEREBROSPINAL FLUID Performed By: #### 3 4563-7, [id number], [id number] ####[facility]ORYCLIA [id number] [address] Color (Spun CSF) Not Indicated Normal Colorless [facility] Comment on above: Order Comment: Speci men Type: CEREBROSPINAL FLUID Performed By: #### 3 4563-7, [id number], [id number] ####[facility]ORYCLIA [id number] [address] CSF TUBE NUMBER [employer] Normal [facility] Comment on above: Order Comment: Speci men Type: CEREBROSPINAL FLUID Performed By: #### 3 4563-7, [id number], [id number] ####[facility]ORYCLIA [id number] [address] RBC Manual cnt (CSF) [#/Vol] 117 cells/uL High 0-5 [facility] Comment on above: Order Comment: Speci men Type: CEREBROSPINAL FLUID Performed By: #### 3 4563-7, [id number], [id number] ####[facility]ORYCLIA [id number] [address] WBC Manual cnt (CSF) [#/Vol] 1 cells/uL Normal 0-5 [facility] Comment on above: Order Comment: Speci men Type: CEREBROSPINAL FLUID Performed By: #### 3 4563-7, [id number], [id number] ####[facility]ORYCLIA [id number] [address] Glucose CSF-mCncon 2 Glucose (CSF) [Mass/Vol] 82 mg/dL High 40-70 [facility] Comment on above: Order Comment: Speci men Type: CEREBROSPINAL FLUID Result Comment: Lumb ar CSF glucose values of healthy patients are approximately 60% of the plasma values and must always be compared with a concurrently measured plasma value for adequate clinical interpretation.References: 1. Glucose HK (GLUC3) [package insert V 12.0 Haitian]. [employer], [place], [place]. September 2015. 2. Michelle Moore, Loki HGarfield (2015). Chapter 7: Glucose and Lactate. F. Irina rose al.(eds.), Cerebrospinal Fluid in Clinical Neurology. [employer]arns: [employer]. Performed By: #### 2 342-4 ####[facility]ATORYCLIA [id number] [address] HEPATIC FUNCTION PNLon 06-02 Albumin [Mass/Vol] 3.2 g/dL Low 3.9-4.9 [facility] Comment on above: Order Comment: Speci men Type: BLOOD SPECIMEN Performed By: #### H [place], 25368-8 ####[facility]ORYCLIA [id number] [address] ALP [Catalytic activity/Vol] 67 U/L Normal 38-113 [facility] Comment on above: Order Comment: Speci men Type: BLOOD SPECIMEN Performed By: #### H [place], 54362-4 ####[facility]ORYCLIA [id number] [address] ALT With P-5'-P [Catalytic activity/Vol] 16 U/L Normal 10-54 [facility] Comment on above: Order Comment: Speci men Type: BLOOD SPECIMEN Performed By: #### [place], [address]-0 ####[facility]ORYCLIA [id number] [address] AST With P-5'-P [Catalytic activity/Vol] 25 U/L Normal 14-40 [facility] Comment on above: Order Comment: Speci men Type: BLOOD SPECIMEN Performed By: #### [place], [address]-5 ####[facility]ORYCLIA [id number] [address] Bilirubin [Mass/Vol] 0.2 mg/dL Normal 0.2-1.3 [facility] Comment on above: Order Comment: Speci men Type: BLOOD SPECIMEN Performed By: #### [place] KATHIE, 47736-9 ####[facility]ORYCLIA [id number] [address] Bilirubin.conjugated [Mass/Vol] mg/dL Normal <0.2 [facility] Comment on above: Order Comment: Speci men Type: BLOOD SPECIMEN Performed By: #### H FP, 64837-1 ####[facility]ORYCLIA [id number] [address] Protein [Mass/Vol] 5.8 g/dL Low 6.3-8.0 [facility] Comment on above: Order Comment: Speci men Type: BLOOD SPECIMEN Performed By: #### [place], [address]-8 ####[facility]ORYCLIA [id number] [address] MRI BRAIN WO/W IVCONon 06-02 MRI BRAIN WO/W IVCON Normal [facility] Magnesium SerPl-mCncon 06-02 Magnesium [Mass/Vol] 2.0 mg/dL Normal 1.7-2.3 [facility] Comment on above: Order Comment: Speci men Type: BLOOD SPECIMEN Performed By: #### 2 4321-2, 39906-2, 2777-1 ####[facility]ORYCLIA [id number] [address] [facility] Natriuretic peptide.B prohormone N-Terminal [Mass/Vol] 296 pg/mL High <125 [facility] Comment on above: Order Comment: Speci men Type: BLOOD SPECIMEN Performed By: #### H FP, 84919-5 ####[facility]ORYCLIA [id number] [address] [facility] POTASSIUM BLDon 06-02-2021 Potassium [Moles/Vol] 3.2 mmol/L Low 3.7-5.1 [facility] Comment on above: Order Comment: Speci men Type: BLOOD SPECIMEN Performed By: #### K 1 ####[facility]ORYCLIA [id number] [address] Phosphate [facility] Phosphate [Mass/Vol] 2.1 mg/dL Low 2.7-4.8 [facility] Comment on above: Order Comment: Speci men Type: BLOOD SPECIMEN Performed By: #### 2 4321-2, 93371-2, 2776-05 ####[facility]ORYCLIA [id number] [address] [facility] Vancomycin random [Mass/Vol] on 06-02-2021 Vancomycin [Mass/Vol] 18.8 ug/mL Normal 10.0-20.0 [facility] Comment on above: Order Comment: Speci men Type: BLOOD SPECIMEN Result Comment: Refe rence ranges and high/low indicator flags are provided as general guidelines only. The treating physician must determine appropriate target levels/dosing based on the specific clinical situation. Performed By: #### 4 091-5 ####[facility]ORYCLIA [id number] [address] [place] ALLIED HEALTHon 06-01-2021 ALLIED HEALTH Normal [facility] ALLIED HEALTH Normal [facility] ALLIED HEALTH Normal [facility] ARTERIAL BLOOD GASESon 06-01 Base excess Calc (Bld) [Moles/Vol] 1 mmol/L Normal 0-2 [facility] Comment on above: Order Comment: Speci men Type: ARTERIAL BLOOD SPECIMEN Performed By: #### A LLBG ####[facility]ORYCLIA [id number] [address] Body temperature 97.52 [degF] Normal [facility] Comment on above: Order Comment: Speci men Type: ARTERIAL BLOOD SPECIMEN Performed By: #### A LLBG ####[facility]ORYCLIA [id number] [address] CALCIUM IONIZED, PH CORRECTED 1.13 mmol/L Normal 1.08-1.30 [facility] Comment on above: Order Comment: Speci men Type: ARTERIAL BLOOD SPECIMEN Performed By: #### A LLBG ####[facility]ORYCLIA [id number] [address] Calcium.ionized (BldV) [Mass/Vol] 1.12 mmol/L Normal 1.08-1.30 [facility] Comment on above: Order Comment: Speci men Type: ARTERIAL BLOOD SPECIMEN Performed By: #### A LLBG ####[facility]ORYCLIA [id number] [address] [facility] Carboxyhemoglobin (BldA) [Mass fraction] 1.6 % Normal 0.0-2.0 [facility] Comment on above: Order Comment: Speci men Type: ARTERIAL BLOOD SPECIMEN Result Comment: Carb oxyhemoglobin Reference Range for Smokers: 2.0-8.0% Performed By: #### A LLBG ####[facility]ORYCLIA [id number] [address] CO2 (Bld) [Partial pressure] 41 mm Hg Normal 36-46 [facility] Comment on above: Order Comment: Speci men Type: ARTERIAL BLOOD SPECIMEN Performed By: #### A LLBG ####[facility]ORYCLIA [id number] [address] CO2 [Moles/Vol] 23.0 mmol/L Normal 22-28 [facility] Comment on above: Order Comment: Speci men Type: ARTERIAL BLOOD SPECIMEN Performed By: #### A LLBG ####[facility]ATORYCLIA [id number] [address] CO2 adjusted to patient's actual temperature (Bld) [Partial pressure] 40 mmHg Normal 36-46 [facility] Comment on above: Order Comment: Speci men Type: ARTERIAL BLOOD SPECIMEN Performed By: #### A LLBG ####[facility]ORYCLIA [id number] [address] FIO2 40 % Normal [facility] Comment on above: Order Comment: Speci men Type: ARTERIAL BLOOD SPECIMEN Performed By: #### A LLBG ####[facility]ORYCLIA [id number] [address] Glucose [Mass/Vol] 127 mg/dL High 60-105 [facility] Comment on above: Order Comment: Speci men Type: ARTERIAL BLOOD SPECIMEN Performed By: #### A LLBG ####[facility]ORYCLIA [id number] [address] HCO3 (Bld) [Moles/Vol] 25 mmol/L Normal 22-26 [facility] Comment on above: Order Comment: Speci men Type: ARTERIAL BLOOD SPECIMEN Performed By: #### A LLBG ####[facility]ORYCLIA [id number] [address] Hematocrit (Bld) [Volume fraction] 33.7 % Low 39.0-51.0 [facility] Comment on above: Order Comment: Speci men Type: ARTERIAL BLOOD SPECIMEN Performed By: #### A LLBG ####[facility]ORYCLIA [id number] [address] [place] Hemoglobin (Bld) [Mass/Vol] 10.9 g/dL Low 13.0-17.0 [facility] Comment on above: Order Comment: Speci men Type: ARTERIAL BLOOD SPECIMEN Performed By: #### A LLBG ####[facility]ORYCLIA [id number] [address] INHALED TIDAL VOLUME (ML) 500 Normal [facility] Comment on above: Order Comment: Speci men Type: ARTERIAL BLOOD SPECIMEN Performed By: #### A LLBG ####[facility]ORYCLIA [id number] [address] INVASIVE VENTILATOR MODE PRVC=Pressure Regulated Volume Control Normal [facility] Comment on above: Order Comment: Speci men Type: ARTERIAL BLOOD SPECIMEN Performed By: #### A LLBG ####[facility]ORYCLIA [id number] [address] [place] Methemoglobin (Bld) [Mass fraction] % Normal 0.0-1.5 [facility] Comment on above: Order Comment: Speci men Type: ARTERIAL BLOOD SPECIMEN Performed By: #### A LLBG ####[facility]ORYCLIA [id number] [address] [place] O2 THERAPY Ventilator Normal [facility] Comment on above: Order Comment: Speci men Type: ARTERIAL BLOOD SPECIMEN Performed By: #### A LLBG ####[facility]ORYCLIA [id number] [address] [place] Oxygen (Bld) [Partial pressure] 64 mm Hg Low 85-95 [facility] Comment on above: Order Comment: Speci men Type: ARTERIAL BLOOD SPECIMEN Performed By: #### A LLBG ####[facility]ORYCLIA [id number] [address] [place] Oxygen adjusted to patient's actual temperature (Bld) [Partial pressure] 61.8 mmHg Low 85-95 [facility] Comment on above: Order Comment: Speci men Type: ARTERIAL BLOOD SPECIMEN Performed By: #### A LLBG ####[facility]ORYCLIA [id number] [address] [place] OXYGEN SATURATION, ARTERIAL 94 % Low 95-98 [facility] Comment on above: Order Comment: Speci men Type: ARTERIAL BLOOD SPECIMEN Performed By: #### A LLBG ####[facility]ORYCLIA [id number] [address] Oxyhemoglobin (BldA) [Mass fraction] 92 % Low 95-98 [facility] Comment on above: Order Comment: Speci men Type: ARTERIAL BLOOD SPECIMEN Performed By: #### A LLBG ####[facility]ORYCLIA [id number] [address] PEEP/CPAP 5 cmH2O Normal [facility] Comment on above: Order Comment: Speci men Type: ARTERIAL BLOOD SPECIMEN Performed By: #### A LLBG ####[facility]ORYCLIA [id number] [address] pH (Bld) 7.40 [pH] Normal 7.35-7.45 [facility] Comment on above: Order Comment: Speci men Type: ARTERIAL BLOOD SPECIMEN Performed By: #### A LLBG ####[facility]ORYCLIA [id number] [address] pH adjusted to patient's actual temperature (Bld) 7.41 Normal 7.35-7.45 [facility] Comment on above: Order Comment: Speci men Type: ARTERIAL BLOOD SPECIMEN Performed By: #### A LLBG ####[facility]ORYCLIA [id number] [address] Potassium [Moles/Vol] 3.1 mmol/L Low 3.5-5.0 [facility] Comment on above: Order Comment: Speci men Type: ARTERIAL BLOOD SPECIMEN Performed By: #### A LLBG ####[facility]ORYCLIA [id number] [address] SET VENTILATOR RESPIRATORY RATE (BPM) 18 BPM Normal [facility] Comment on above: Order Comment: Speci men Type: ARTERIAL BLOOD SPECIMEN Performed By: #### A LLBG ####[facility]ORYCLIA [id number] [address] Sodium [Moles/Vol] 141 mmol/L Normal 136-144 [facility] Comment on above: Order Comment: Speci men Type: ARTERIAL BLOOD SPECIMEN Performed By: #### A LLBG ####[facility]ATORYCLIA [id number] [address] BASE DEFICIT, ARTERIAL -1.0 mmol/L Normal -2-0 [facility] Comment on above: Order Comment: Speci men Type: ARTERIAL BLOOD SPECIMEN Performed By: #### A LLBG ####[facility]ATORYCLIA [id number] [address] Body temperature 98.24 [degF] Normal [facility] Comment on above: Order Comment: Speci men Type: ARTERIAL BLOOD SPECIMEN Performed By: #### A LLBG ####[facility]ATORYCLIA [id number] [address] CALCIUM IONIZED, PH CORRECTED 1.08 mmol/L Normal 1.08-1.30 [facility] Comment on above: Order Comment: Speci men Type: ARTERIAL BLOOD SPECIMEN Performed By: #### A LLBG ####[facility]ORYCLIA [id number] [address] Calcium.ionized (BldV) [Mass/Vol] 1.15 mmol/L Normal 1.08-1.30 [facility] Comment on above: Order Comment: Speci men Type: ARTERIAL BLOOD SPECIMEN Performed By: #### A LLBG ####[facility]ORYCLIA [id number] [address] Carboxyhemoglobin (BldA) [Mass fraction] 1.4 % Normal 0.0-2.0 [facility] Comment on above: Order Comment: Speci men Type: ARTERIAL BLOOD SPECIMEN Result Comment: Carb oxyhemoglobin Reference Range for Smokers: 2.0-8.0% Performed By: #### A LLBG ####[facility]ORYCLIA [id number] [place], [place] [id number] [place] [address] CO2 (Bld) [Partial pressure] 59 mm Hg High 36-46 [facility] Comment on above: Order Comment: Speci men Type: ARTERIAL BLOOD SPECIMEN Performed By: #### A LLBG ####[facility]ORYCLIA [id number] [place], [place] [id number] [place] [address] [place] CO2 [Moles/Vol] 24.5 mmol/L Normal 22-28 [facility] Comment on above: Order Comment: Speci men Type: ARTERIAL BLOOD SPECIMEN Performed By: #### A LLBG ####[facility]ORYCLIA [id number] [address] CO2 adjusted to patient's actual temperature (Bld) [Partial pressure] 58 mmHg High 36-46 [facility] Comment on above: Order Comment: Speci men Type: ARTERIAL BLOOD SPECIMEN Performed By: #### A LLBG ####[facility]ORYCLIA [id number] [address] [place] FIO2 40 % Normal [facility] Comment on above: Order Comment: Speci men Type: ARTERIAL BLOOD SPECIMEN Performed By: #### A LLBG ####[facility]ORYCLIA [id number] [address] Glucose [Mass/Vol] 128 mg/dL High 60-105 [facility] Comment on above: Order Comment: Speci men Type: ARTERIAL BLOOD SPECIMEN Performed By: #### A LLBG ####[facility]ORYCLIA [id number] [address] [place] HCO3 (Bld) [Moles/Vol] 26 mmol/L Normal 22-26 [facility] Comment on above: Order Comment: Speci men Type: ARTERIAL BLOOD SPECIMEN Performed By: #### A LLBG ####[facility]ORYCLIA [id number] [address] [place] Hematocrit (Bld) [Volume fraction] 35.6 % Low 39.0-51.0 [facility] Comment on above: Order Comment: Speci men Type: ARTERIAL BLOOD SPECIMEN Performed By: #### A LLBG ####[facility]ORYCLIA [id number] [address] Hemoglobin (Bld) [Mass/Vol] 11.5 g/dL Low 13.0-17.0 [facility] Comment on above: Order Comment: Speci men Type: ARTERIAL BLOOD SPECIMEN Performed By: #### A LLBG ####[facility]ORYCLIA [id number] [address] INHALED TIDAL VOLUME (ML) 500 Normal [facility] Comment on above: Order Comment: Speci men Type: ARTERIAL BLOOD SPECIMEN Performed By: #### A LLBG ####[facility]ORYCLIA [id number] [address] INVASIVE VENTILATOR MODE PRVC=Pressure Regulated Volume Control Normal [facility] Comment on above: Order Comment: Speci men Type: ARTERIAL BLOOD SPECIMEN Performed By: #### A LLBG ####[facility]ORYCLIA [id number] [address] Methemoglobin (Bld) [Mass fraction] % Normal 0.0-1.5 [facility] Comment on above: Order Comment: Speci men Type: ARTERIAL BLOOD SPECIMEN Performed By: #### A LLBG ####[facility]ORYCLIA [id number] [address] O2 THERAPY Ventilator Normal [facility] Comment on above: Order Comment: Speci men Type: ARTERIAL BLOOD SPECIMEN Performed By: #### A LLBG ####[facility]ORYCLIA [id number] [address] Oxygen (Bld) [Partial pressure] 88 mm Hg Normal 85-95 [facility] Comment on above: Order Comment: Speci men Type: ARTERIAL BLOOD SPECIMEN Performed By: #### A LLBG ####[facility]ORYCLIA [id number] [address] Oxygen adjusted to patient's actual temperature (Bld) [Partial pressure] 86.5 mmHg Normal 85-95 [facility] Comment on above: Order Comment: Speci men Type: ARTERIAL BLOOD SPECIMEN Performed By: #### A LLBG ####[facility]ORYCLIA [id number] [address] OXYGEN SATURATION, ARTERIAL 95 % Normal 95-98 [facility] Comment on above: Order Comment: Speci men Type: ARTERIAL BLOOD SPECIMEN Performed By: #### A LLBG ####[facility]ORYCLIA [id number] [address] Oxyhemoglobin (BldA) [Mass fraction] 93 % Low 95-98 [facility] Comment on above: Order Comment: Speci men Type: ARTERIAL BLOOD SPECIMEN Performed By: #### A LLBG ####[facility]ATORYCLIA [id number] [address] PEEP/CPAP 5 cmH2O Normal [facility] Comment on above: Order Comment: Speci men Type: ARTERIAL BLOOD SPECIMEN Performed By: #### A LLBG ####[facility]ATORYCLIA [id number] [address] pH (Bld) 7.27 [pH] Low 7.35-7.45 [facility] Comment on above: Order Comment: Speci men Type: ARTERIAL BLOOD SPECIMEN Performed By: #### A LLBG ####[facility]ORYCLIA [id number] [address] pH adjusted to patient's actual temperature (Bld) 7.28 Low 7.35-7.45 [facility] Comment on above: Order Comment: Speci men Type: ARTERIAL BLOOD SPECIMEN Performed By: #### A LLBG ####[facility]ORYCLIA [id number] [address] Potassium [Moles/Vol] 3.3 mmol/L Low 3.5-5.0 [facility] Comment on above: Order Comment: Speci men Type: ARTERIAL BLOOD SPECIMEN Performed By: #### A LLBG ####[facility]ORYCLIA [id number] [address] SET VENTILATOR RESPIRATORY RATE (BPM) 14 BPM Normal [facility] Comment on above: Order Comment: Speci men Type: ARTERIAL BLOOD SPECIMEN Performed By: #### A LLBG ####[facility]ORYCLIA [id number] [address] Sodium [Moles/Vol] 141 mmol/L Normal 136-144 [facility] Comment on above: Order Comment: Speci men Type: ARTERIAL BLOOD SPECIMEN Performed By: #### A LLBG ####[facility]ATORYCLIA [id number] [address] Bacteria CSF Culton 06-01-19 22 Bacteria identified Cx Nom (CSF) CULTURE, CSF: No growth 14 days GRAM STAIN: No organisms seen Rare Polymorphonuclear leukocytes Moderate Red Blood Cells Gram stain performed on cytospun specimen. Normal [facility] Comment on above: Performed By: #### 6 06-4 ####[facility]ATORYCLIA [id number] [address] Bacteria Spec Resp Culton Bacteria identified Respiratory culture Nom (Unsp spec) CULTURE, RESPIRATORY: No growth 2 days GRAM STAIN: No organisms seen No Polymorphonuclear Leukocytes Normal [facility] Comment on above: Performed By: #### 3 2355-0 ####[facility]ATORYCLIA [id number] [address] OF [facility] Basic metabolic 2000 panelon 06-01-2021 Anion gap [Moles/Vol] 8 mmol/L Low 9-18 [facility] Comment on above: Order Comment: Speci men Type: BLOOD SPECIMEN Performed By: #### 2 4321-2, 02566-9, 2777-1 ####[facility]ORYCLIA [id number] [address] [place] Calcium [Mass/Vol] 7.8 mg/dL Low 8.5-10.2 [facility] Comment on above: Order Comment: Speci men Type: BLOOD SPECIMEN Performed By: #### 2 4321-2, , 2776-05 ####[facility]ORYCLIA [id number] [address] Chloride [Moles/Vol] 109 mmol/L High 97-105 [facility] Comment on above: Order Comment: Speci men Type: BLOOD SPECIMEN Performed By: #### 2 4321-2, , 2776-05 ####[facility]ORYCLIA [id number] [address] CO2 [Moles/Vol] 26 mmol/L Normal 22-30 [facility] Comment on above: Order Comment: Speci men Type: BLOOD SPECIMEN Performed By: #### 2 4321-2, , 2776-05 ####[facility]ORYCLIA [id number] [address] Creatinine [Mass/Vol] 0.82 mg/dL Normal 0.73-1.22 [facility] Comment on above: Order Comment: Speci men Type: BLOOD SPECIMEN Performed By: #### 2 4321-2, , 2776-05 ####[facility]ATORYCLIA [id number] [address] [place] GFR/1.73 sq M.predicted MDRD (S/P/Bld) [Vol rate/Area] mL/min/{1.73_m2} Normal [facility] Comment on above: [...] Performed By: #### 2 1-2, , 2776-05 ####[facility]ATORYCLIA [id number] [place] [address] [place] Glucose [Mass/Vol] 105 mg/dL High 74-99 [facility] Comment on above: Order Comment: Speci men Type: BLOOD SPECIMEN Result Comment: The [place] [employer] (ADA) provides guidance for cutoff [...] Standards of Medical Care in Diabetes 2016, [place] [employer]. Diabetes Care. 2016.39(Suppl 1). Performed By: #### 2 4320-2, , 2776-05 ####[facility]ATORYCLIA [id number] [place] [address] [place] Potassium [Moles/Vol] 3.8 mmol/L Normal 3.7-5.1 [facility] Comment on above: Order Comment: Speci men Type: BLOOD SPECIMEN Performed By: #### 2 4320-2, , 2776-05 ####[facility]ATORYCLIA [id number] [place] [address] [place] Sodium [Moles/Vol] 143 mmol/L Normal 136-144 [facility] Comment on above: Order Comment: Speci men Type: BLOOD SPECIMEN Performed By: #### 2 1-2, , 2776-05 ####[facility]ORYCLIA [id number] [place] [address] [place] Urea nitrogen [Mass/Vol] 15 mg/dL Normal 9-24 [facility] Comment on above: Order Comment: Speci men Type: BLOOD SPECIMEN Performed By: #### 2 4321-2, 76579-3, 2777-1 ####[facility]ATORYCLIA [id number] [address] CBC panel Auto (Bld)on 06-01 Erythrocyte distribution width (RBC) [Ratio] 15.4 % High 11.5-15.0 [facility] Comment on above: Order Comment: Speci men Type: BLOOD SPECIMEN Performed By: #### 5 8410-2 ####[facility]ORYCLIA [id number] [address] Hematocrit (Bld) [Volume fraction] 38.4 % Low 39.0-51.0 [facility] Comment on above: Order Comment: Speci men Type: BLOOD SPECIMEN Performed By: #### 5 8410-2 ####[facility]ORYCLIA [id number] [address] Hemoglobin (Bld) [Mass/Vol] 11.1 g/dL Low 13.0-17.0 [facility] Comment on above: Order Comment: Speci men Type: BLOOD SPECIMEN Performed By: #### 5 8410-2 ####[facility]ORYCLIA [id number] [address] MCH (RBC) [Entitic mass] 26.9 pg Normal 26.0-34.0 [facility] Comment on above: Order Comment: Speci men Type: BLOOD SPECIMEN Performed By: #### 5 8410-2 ####[facility]ORYCLIA [id number] [address] MCHC (RBC) [Mass/Vol] 28.9 g/dL Low 30.5-36.0 [facility] Comment on above: Order Comment: Speci men Type: BLOOD SPECIMEN Performed By: #### 5 8410-2 ####[facility]ORYCLIA [id number] [address] MCV (RBC) [Entitic vol] 93.2 fL Normal 80.0-100.0 [facility] Comment on above: Order Comment: Speci men Type: BLOOD SPECIMEN Performed By: #### 5 8410-2 ####[facility]ORYCLIA [id number] [address] Nucleated RBC (Bld) [#/Vol] 10*3/uL Normal <0.01 [facility] Comment on above: Order Comment: Speci men Type: BLOOD SPECIMEN Performed By: #### 5 8410-2 ####[facility]ORYCLIA [id number] [address] Platelet mean volume (Bld) [Entitic vol] 10.2 fL Normal 9.0-12.7 [facility] Comment on above: Order Comment: Speci men Type: BLOOD SPECIMEN Performed By: #### 5 8410-2 ####[facility]ORYCLIA [id number] [address] Platelets (Bld) [#/Vol] 231 10*3/uL Normal 150-400 [facility] Comment on above: Order Comment: Speci men Type: BLOOD SPECIMEN Performed By: #### 5 8410-2 ####[facility]ORYCLIA [id number] [address] RBC (Bld) [#/Vol] 4.12 10*6/uL Low 4.20-6.00 [facility] Comment on above: Order Comment: Speci men Type: BLOOD SPECIMEN Performed By: #### 5 8410-2 ####[facility]ORYCLIA [id number] [address] WBC (Bld) [#/Vol] 10.99 10*3/uL Normal 3.70-11.00 [facility] Comment on above: Order Comment: Speci men Type: BLOOD SPECIMEN Performed By: #### 5 8410-2 ####[facility]ORYCLIA [id number] [address] CONSULT PROGon 06-01-2021 CONSULT PROG Normal [facility] CSF MANUAL DIFFon 06-01-2021 DIF TTL, CSF 100 cells counted Normal [facility] Comment on above: Order Comment: Speci men Type: CEREBROSPINAL FLUID Performed By: #### 3 4563-7, [id number] ####[facility]ORYCLIA [id number] [address] LYMPH%, CSF 11 % Low 50-90 [facility] Comment on above: Order Comment: Speci men Type: CEREBROSPINAL FLUID Performed By: #### 3 4563-7, [id number] ####[facility]ORYCLIA [id number] [address] MONO%, CSF 10 % Normal 10-50 [facility] Comment on above: Order Comment: Speci men Type: CEREBROSPINAL FLUID Performed By: #### 3 4563-7, [id number] ####[facility]ORYCLIA [id number] [address] NEUT%, CSF 79 % High 0-3 [facility] Comment on above: Order Comment: Speci men Type: CEREBROSPINAL FLUID Performed By: #### 3 4563-7, [id number] ####[facility]ORYCLIA [id number] [address] BRAIN WO IVCONon 06-01-19 CT BRAIN WO IVCON Normal [facility] Cell count panel (CSF)on Clarity (CSF) Clear Normal Clear [facility] Comment on above: Order Comment: Speci men Type: CEREBROSPINAL FLUID Performed By: #### 3 4563-7, [id number] ####[facility]ORYCLIA [id number] [address] Clarity (Unsp spec) Not Indicated Normal Clear [facility] Comment on above: Order Comment: Speci men Type: CEREBROSPINAL FLUID Performed By: #### 3 4563-7, [id number] ####[facility]ORYCLIA [id number] [address] [place] Color (CSF) Colorless Normal Colorless [facility] Comment on above: Order Comment: Speci men Type: CEREBROSPINAL FLUID Performed By: #### 3 4563-7, [id number] ####[facility]ORATORYCLIA [id number] [address] Color (Spun CSF) Not Indicated Normal Colorless [facility] Comment on above: Order Comment: Speci men Type: CEREBROSPINAL FLUID Performed By: #### 3 4563-7, [id number] ####[facility]ORATORYCLIA [id number] [address] CSF TUBE NUMBER [employer] Normal [facility] Comment on above: Order Comment: Speci men Type: CEREBROSPINAL FLUID Performed By: #### 3 4563-7, [id number] ####[facility]ATORYCLIA [id number] [address] RBC Manual cnt (CSF) [#/Vol] 171 cells/uL High 0-5 [facility] Comment on above: Order Comment: Speci men Type: CEREBROSPINAL FLUID Performed By: #### 3 4563-7, [id number] ####[facility]ORYCLIA [id number] [address] WBC Manual cnt (CSF) [#/Vol] 5 cells/uL Normal 0-5 [facility] Comment on above: Order Comment: Speci men Type: CEREBROSPINAL FLUID Performed By: #### 3 4563-7, [id number] ####[facility]ORATORYCLIA [id number] [address] OF [place] FUNGAL CULTUREon 06-01-2021 FUNGAL CULTURE CULTURE, FUNGAL: No Fungus isolated after 28 days Normal [facility] Comment on above: Performed By: #### F CUL ####[facility]ATORYCLIA [id number] [address] [place] Glucose CSF-mCncon Glucose (CSF) [Mass/Vol] 78 mg/dL High 40-70 [facility] Comment on above: Order Comment: Speci men Type: CEREBROSPINAL FLUID Result Comment: Lumb ar CSF glucose values of healthy patients are approximately 60% of the plasma values and must always be compared with a concurrently measured plasma value for adequate clinical interpretation.References: 1. Glucose HK (GLUC3) [package insert V 12.0 Haitian]. [employer], [place], [place]. September 2015. 2. Michelle Moore, Michelle Manjarrez (2015). Chapter 7: Glucose and Lactate. F. Irina rose al.(eds.), Cerebrospinal Fluid in Clinical Neurology. Stearns: [employer]. Performed By: #### 2 342-4, 2880-3 ####[facility]ATORYCLIA [id number] [address] OF [place] HERPES SIMPLEX CSFon 022 HERPES SIMPLEX CSF HSV PCR SPEC SOURCE: Cerebrospinal Fluid HSV-1: Negative for Herpes Simplex Virus Type 1 by PCR HSV-2: Negative for Herpes Simplex Virus Type 2 by PCR Normal [facility] Comment on above: Performed By: #### [facility] ####[facility] LABCLIA [id number] [address] [id number] [address] [place] Lactate (Bld) [Moles/Vol]on 06-01-2021 Lactate [Moles/Vol] 0.5 mmol/L Normal 0.5-2.2 [facility] Comment on above: Order Comment: Speci men Type: BLOOD SPECIMEN Performed By: #### 3 2693-4 ####[facility]ATORYCLIA [id number] [address] OF [place] MENINGITIS ENCEPHALITIS BIOF IREon 06-01-2021 MENINGITIS ENCEPHALITIS BIOFIRE Negative Normal [facility] Comment on above: Order Comment: Speci men Type: CEREBROSPINAL FLUID Performed By: #### M GEBF ####[facility]ITALCL[facility] [id number] [place] [address] Magnesium SerPl-mCncon 06-01 Magnesium [Mass/Vol] 2.2 mg/dL Normal 1.7-2.3 [facility] Comment on above: Order Comment: Speci men Type: BLOOD SPECIMEN Performed By: #### 2 4321-2, 25076-8, 2777-1 ####[facility]ATORYCLIA [id number] [address] Microorganism Spec Culton Microorganism identified Cx Nom (Unsp spec) CULTURE, AFB: No Acid Fast Bacilli isolated after 42 days AFB STAIN: No acid fast bacilli seen by flurochrome stain Normal [facility] Comment on above: Performed By: #### 1 1475-1 ####[facility]ATORYCLIA [id number] [address] PROCALCITONIN (LAB)on 2021 Procalcitonin [Mass/Vol] 0.08 ng/mL Normal <0.09 [facility] Comment on above: Order Comment: Speci men Type: BLOOD SPECIMEN Result Comment: For a guided interpretation of test results, please visit the [facility] in Procalcitonin Calculator, [email or web address]. Performed By: #### P ROCAL ####[facility]ATORYCLIA [id number] [address] Phosphate SerPl-ncon 06-01 Phosphate [Mass/Vol] 3.5 mg/dL Normal 2.7-4.8 [facility] Comment on above: Order Comment: Speci men Type: BLOOD SPECIMEN Performed By: #### 2 4321-2, 44464-9, 277- ####[facility]ATORYCLIA [id number] [address] [place] Prot CSF-mCncon 06-01-2021 Protein (CSF) [Mass/Vol] 52 mg/dL High 15-45 [facility] Comment on above: Order Comment: Speci men Type: CEREBROSPINAL FLUID Performed By: #### 2 342-4, 2880-3 ####[facility]ATORYCLIA [id number] [address] OF [place] Vancomycin random [Mass/Vol] on 06-01-2021 Vancomycin [Mass/Vol] 14.6 ug/mL Normal 10.0-20.0 [facility] Comment on above: Order Comment: Speci men Type: BLOOD SPECIMEN Result Comment: Refe rence ranges and high/low indicator flags are provided as general guidelines only. The treating physician must determine appropriate target levels/dosing based on the specific clinical situation. Performed By: #### 4 091-5 ####[facility]ORATORYCLIA [id number] [address] [place] XR CHEST 1V FRONTALon 2021 XR CHEST 1V FRONTAL Normal [facility] XR CHEST 1V FRONTAL Normal [facility] XR NECK SOFT TISSUE 2V AP/LA Ton 06-01-2021 XR NECK SOFT TISSUE 2V AP/LAT Normal [facility] XR SKULL 2V AP/LATon 022 XR SKULL 2V AP/LAT Normal [facility] ALLIED HEALTHon 05-31-2021 ALLIED HEALTH HNO ID: [id number] Author: Christina Lnyne RT(R) Service: Radiology Author Type: Technologist Type: Allied Health Filed: 05/31/2021 5:48 PM Note Text: MRI tomorrow per RN. Normal [facility] ALLIED HEALTH Normal [facility] ALLIED HEALTH Normal [facility] ALLIED HEALTH Normal [facility] ANES POSTPROC EVALon 022 ANES POSTPROC EVAL Normal [facility] ANES PRE-OPon 05-31-2021 ANES PRE-OP Normal [facility] BRIEF OP NOTon 05-31-2021 BRIEF OP NOT Normal [facility] Bacteria Bld Culton 05-31-19 22 Bacteria identified Cx Nom (Bld) CULTURE, BLOOD: No growth 5 days Normal [facility] Comment on above: Performed By: #### 6 00-7 ####[facility]ATORYCLIA [id number] [address] Bacteria CSF Culton 05-31-19 22 Bacteria identified Cx Nom (CSF) CULTURE, CSF: No growth 14 days GRAM STAIN: No organisms seen Rare Polymorphonuclear leukocytes Rare Red Blood Cells Gram stain performed on cytospun specimen. Normal [facility] Comment on above: Performed By: #### 6 06-4 ####[facility]ORYCLIA [id number] [address] Basic metabolic 2000 panelon 05-31-2021 Anion gap [Moles/Vol] 9 mmol/L Normal 9-18 [facility] Comment on above: Order Comment: Speci men Type: BLOOD SPECIMEN Performed By: #### 2 777-1, 99091-9, ####[facility]ATORYCLIA [id number] [place], [place] [address] [place] [address] [place] [facility] Calcium [Mass/Vol] 8.2 mg/dL Low 8.5-10.2 [facility] Comment on above: Order Comment: Speci men Type: BLOOD SPECIMEN Performed By: #### 2 777-1, , ####[facility]ORYCLIA [id number] [address] Chloride [Moles/Vol] 110 mmol/L High 97-105 [facility] Comment on above: Order Comment: Speci men Type: BLOOD SPECIMEN Performed By: #### 2 777-1, , ####[facility]ATORYCLIA [id number] [place], [place] [address] [place] [address] [place] [facility] CO2 [Moles/Vol] 27 mmol/L Normal 22-30 [facility] Comment on above: Order Comment: Speci men Type: BLOOD SPECIMEN Performed By: #### 2 777-1, 74607-2, ####[facility]ATORYCLIA [id number] [place], [place] [address] [place] [address] [place] Creatinine [Mass/Vol] 0.85 mg/dL Normal 0.73-1.22 [facility] Comment on above: Order Comment: Speci men Type: BLOOD SPECIMEN Performed By: #### 2 777-1, 77485-4, ####[facility]ATORYCLIA [id number] [place], [place] [address] [place] [address] GFR/1.73 sq M.predicted MDRD (S/P/Bld) [Vol rate/Area] mL/min/{1.73_m2} Normal [facility] Comment on above: [...] actual GFR. Performed By: #### 2 777-1, 39408-7, ####[facility]ATORYCLIA [id number] [place] [address] [place] Glucose [Mass/Vol] 111 mg/dL High 74-99 [facility] Comment on above: Order Comment: Speci men Type: BLOOD SPECIMEN Result Comment: The [place] Diabetes Association (ADA) provides guidance for cutoff [...] Standards of Medical Care in Diabetes 2016, [place] [employer]. Diabetes Care. 2016.39(Suppl 1). Performed By: #### 2 777-1, 68731-2, ####[facility]ATORYCLIA [id number] [place] [id number] [place] Potassium [Moles/Vol] 3.7 mmol/L Normal 3.7-5.1 [facility] Comment on above: Order Comment: Speci men Type: BLOOD SPECIMEN Performed By: #### 2 777-1, 38179-9, ####[facility]ATORYCLIA [id number] [address] Sodium [Moles/Vol] 146 mmol/L High 136-144 [facility] Comment on above: Order Comment: Speci men Type: BLOOD SPECIMEN Performed By: #### 2 777-1, 42895-8, ####[facility]ATORYCLIA [id number] [address] STATES [facility] Urea nitrogen [Mass/Vol] 16 mg/dL Normal 9-24 [facility] Comment on above: Order Comment: Speci men Type: BLOOD SPECIMEN Performed By: #### 2 777-1, 90335-2, ####[facility]ATORYCLIA [id number] [address] STATES [place] [facility] CASE MGT INIT ASSESon 2021 CASE MGT INIT ASSES Normal [facility] CBC W Auto Differential pane l (Bld)on 05-31-2021 Basophils (Bld) [#/Vol] 0.04 10*3/uL Normal <0.11 [facility] Comment on above: Order Comment: Speci men Type: BLOOD SPECIMEN Performed By: #### 5 7021-8 ####[facility]ATORYCLIA [id number] [address] STATES [facility] Basophils/100 WBC (Bld) 0.5 % Normal [facility] Comment on above: Order Comment: Speci men Type: BLOOD SPECIMEN Performed By: #### 5 7021-8 ####[facility]ATORYCLIA [id number] [address] Differential cell count method Nom (Bld) Auto Normal [facility] Comment on above: Order Comment: Speci men Type: BLOOD SPECIMEN Performed By: #### 5 7021-8 ####[facility]ATORYCLIA [id number] [address] Eosinophils (Bld) [#/Vol] 0.27 10*3/uL Normal <0.46 [facility] Comment on above: Order Comment: Speci men Type: BLOOD SPECIMEN Performed By: #### 5 7021-8 ####[facility]ORATORYCLIA [id number] [address] Eosinophils/100 WBC (Bld) 3.3 % Normal [facility] Comment on above: Order Comment: Speci men Type: BLOOD SPECIMEN Performed By: #### 5 7021-8 ####[facility]ATORYCLIA [id number] [address] Erythrocyte distribution width (RBC) [Ratio] 15.4 % High 11.5-15.0 [facility] Comment on above: Order Comment: Speci men Type: BLOOD SPECIMEN Performed By: #### 5 7021-8 ####[facility]ATORYCLIA [id number] [address] Hematocrit (Bld) [Volume fraction] 37.9 % Low 39.0-51.0 [facility] Comment on above: Order Comment: Speci men Type: BLOOD SPECIMEN Performed By: #### 5 7021-8 ####[facility]ATORYCLIA [id number] [address] Hemoglobin (Bld) [Mass/Vol] 11.5 g/dL Low 13.0-17.0 [facility] Comment on above: Order Comment: Speci men Type: BLOOD SPECIMEN Performed By: #### 5 7021-8 ####[facility]ATORYCLIA [id number] [address] IMMATURE GRAN % 0.4 % Normal [facility] Comment on above: Order Comment: Speci men Type: BLOOD SPECIMEN Performed By: #### 5 7021-8 ####[facility]ATORYCLIA [id number] [address] IMMATURE GRAN ABS 0.03 k/uL Normal <0.10 [facility] Comment on above: Order Comment: Speci men Type: BLOOD SPECIMEN Performed By: #### 5 7021-8 ####[facility]ATORYCLIA [id number] [address] Lymphocytes (Bld) [#/Vol] 1.90 10*3/uL Normal 1.00-4.00 [facility] Comment on above: Order Comment: Speci men Type: BLOOD SPECIMEN Performed By: #### 5 7021-8 ####[facility]ATORYCLIA [id number] [address] Lymphocytes/100 WBC (Bld) 23.0 % Normal [facility] Comment on above: Order Comment: Speci men Type: BLOOD SPECIMEN Performed By: #### 5 7021-8 ####[facility]ATORYCLIA [id number] [address] MCH (RBC) [Entitic mass] 28.0 pg Normal 26.0-34.0 [facility] Comment on above: Order Comment: Speci men Type: BLOOD SPECIMEN Performed By: #### 5 7021-8 ####[facility]ATORYCLIA [id number] [address] MCHC (RBC) [Mass/Vol] 30.3 g/dL Low 30.5-36.0 [facility] Comment on above: Order Comment: Speci men Type: BLOOD SPECIMEN Performed By: #### 5 7021-8 ####[facility]ATORYCLIA [id number] [address] MCV (RBC) [Entitic vol] 92.4 fL Normal 80.0-100.0 [facility] Comment on above: Order Comment: Speci men Type: BLOOD SPECIMEN Performed By: #### 5 7021-8 ####[facility]ATORYCLIA [id number] [address] Monocytes (Bld) [#/Vol] 0.60 10*3/uL Normal <0.87 [facility] Comment on above: Order Comment: Speci men Type: BLOOD SPECIMEN Performed By: #### 5 7021-8 ####[facility]ATORYCLIA [id number] [address] Monocytes/100 WBC (Bld) 7.3 % Normal [facility] Comment on above: Order Comment: Speci men Type: BLOOD SPECIMEN Performed By: #### 5 7021-8 ####[facility]ORYCLIA [id number] [address] Neutrophils (Bld) [#/Vol] 5.41 10*3/uL Normal 1.45-7.50 [facility] Comment on above: Order Comment: Speci men Type: BLOOD SPECIMEN Performed By: #### 5 7021-8 ####[facility]ORATORYCLIA [id number] [address] Neutrophils/100 WBC (Bld) 65.5 % Normal [facility] Comment on above: Order Comment: Speci men Type: BLOOD SPECIMEN Performed By: #### 5 7021-8 ####[facility]ORYCLIA [id number] [address] Nucleated RBC (Bld) [#/Vol] 10*3/uL Normal <0.01 [facility] Comment on above: Order Comment: Speci men Type: BLOOD SPECIMEN Performed By: #### 5 7021-8 ####[facility]ORYCLIA [id number] [address] Nucleated RBC/100 WBC (Bld) [Ratio] 0.0 /100 WBC Normal 0.0 [facility] Comment on above: Order Comment: Speci men Type: BLOOD SPECIMEN Performed By: #### 5 7021-8 ####[facility]ORYCLIA [id number] [address] Platelet mean volume (Bld) [Entitic vol] 9.8 fL Normal 9.0-12.7 [facility] Comment on above: Order Comment: Speci men Type: BLOOD SPECIMEN Performed By: #### 5 7021-8 ####[facility]ATORYCLIA [id number] [address] Platelets (Bld) [#/Vol] 251 10*3/uL Normal 150-400 [facility] Comment on above: Order Comment: Speci men Type: BLOOD SPECIMEN Performed By: #### 5 7021-8 ####[facility]ORYCLIA [id number] [address] RBC (Bld) [#/Vol] 4.10 10*6/uL Low 4.20-6.00 [facility] Comment on above: Order Comment: Speci men Type: BLOOD SPECIMEN Performed By: #### 5 7021-8 ####[facility]ATORYCLIA [id number] [address] WBC (Bld) [#/Vol] 8.25 10*3/uL Normal 3.70-11.00 [facility] Comment on above: Order Comment: Speci men Type: BLOOD SPECIMEN Performed By: #### 5 7021-8 ####[facility]ATORYCLIA [id number] [address] CONSULTon 05-31-2021 CONSULT Normal [facility] CONSULT Normal [facility] CONSULT Normal [facility] CT BRAIN WO IVCONon 05-31-[address] BRAIN WO IVCON Normal [facility] CT BRAIN WO IVCON Normal [facility] CT CHEST WO IVCONon 05-31-[address] CHEST WO IVCON Normal [facility] Cortis SerPl-mCncon 05-31-19 22 Cortisol [Mass/Vol] 31.0 ug/dL High AM: 5.3-22.5, PM: 3.4-16.8 [facility] Comment on above: Order Comment: Speci men Type: BLOOD SPECIMEN Result Comment: Prov ided reference range is from 6-10 AM sample collection time.Cortisol Reference Range: 6-10 AM = 4.8-19.5 ug/dL, 4-8 PM = 2.5-11.9 ug/dL Performed By: #### 2 143-6, 3016-3 ####[facility]ATORYCLIA [id number] [address] Cryptoc Ag Spec Ql LAon 05-08 Cryptococcus sp Ag LA Ql (Unsp spec) Negative Normal [facility] Comment on above: Performed By: #### 4 3228-6 ####[facility]ATORYCLIA [id number] [address] HISTORY PHYSICALon 2 HISTORY PHYSICAL Normal [facility] Magnesium SerPl-ncon 05-31 Magnesium [Mass/Vol] 2.2 mg/dL Normal 1.7-2.3 [facility] Comment on above: Order Comment: Speci men Type: BLOOD SPECIMEN Performed By: #### 2 777-1, 89578-6, ####[facility]ATORYCLIA [id number] [address] NURSING PROGon 05-31-2021 NURSING PROG Normal [facility] NUTRITIONon 05-31-2021 NUTRITION Normal [facility] OPERATIVE NOon 05-31-2021 OPERATIVE NO Normal [facility] Phosphate SerPl-mCncon 05-31 Phosphate [Mass/Vol] 3.3 mg/dL Normal 2.7-4.8 [facility] Comment on above: Order Comment: Speci men Type: BLOOD SPECIMEN Performed By: #### 2 777-1, 77152-4, ####[facility]ATORYCLIA [id number] [address] STAPH AUREUS PCRon 2 S. aureus and MRSA panel MEGAN+probe (Nose) Normal Negative [facility] Comment on above: Order Comment: Speci men Type: SWAB OF INTERNAL NOSE Result Comment: Nega tive for Staphylococcus aureus by PCR.Negative for MRSA by PCR Performed By: #### S APCR ####[facility]ATORYCLIA [id number] [address] OF [facility] TSH SerPl-aCncon 05-31-2021 TSH Qn 0.829 m[IU]/L Normal 0.270-4.200 [facility] Comment on above: Order Comment: Speci men Type: BLOOD SPECIMEN Performed By: #### 2 143-6, 3016-3 ####[facility]ATORYCLIA [id number] [address] XR CHEST 1V FRONTALon 2021 XR CHEST 1V FRONTAL Normal [facility] XR CHEST 1V FRONTAL Normal [facility] Blood Cultureon 05-30-2021 Bacteria identified Cx Nom (Bld) Culture Result - No growth 5 days Normal [facility] Comment on above: Performed By: #### C AD #### [facility] [place] [id number] [place] [address] Bacteria identified Cx Nom (Bld) Sp. Request/Comment: - 8.2MLS Culture Result - No growth 5 days Normal [facility] Comment on above: Performed By: #### C AD #### [facility] [place] [phone] [place] [address] C-Reactive Proteinon 022 C-Reactive Protein 1.7 mg/dL High <0.9 [facility] Comment on above: Performed By: #### C RP ####[facility] [address] [place] [phone] CNDSon 05-30-2021 [facility] HNO ID: [id number] Author: Columba Carroll PA-C Service: Hospital Medicine Author Type: Physician Microwave Radio Technician Type: Discharge Summary Filed: 05/30/2021 12:49 PM Note Text: ----- Attestation signed by Ayaka Menjivar MD at 06/01/2021 12:53 PM Attending Note I have personally reviewed the PA/SHANK CUTTER note. Agree with above assessment and plan. [...] Team: Attending Provider: Ayaka Menjivar MD Physician Microwave Radio Technician: Columba Carroll PA-C Consulting: Lilo Mendoza MD [...] consulted. 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 Tele-neuro also suggested an MRI brain be obtained prior to LP to check RN INVASIVE shunt and decrease risk of herniation in neurosurgery capable facility. Transfer to [facility] requested. Sepsis lactate was 1.3. ABG showed pO2 67.8, placed patient on 2L NC.Follow B1, B12, and RPR pending. 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 LABS AND PROCEDURES [...] q 1 (more content not included)... Normal [facility] CONSULTon 05-30-2021 CONSULT HNO ID: [id number] Author: Juan Carlos Mckenzie MD Service: Infectious [...] vertebrae with counting from the craniocervical junction. Wash Driller: PSCB Transcribe Date/Time: May 29 2021 8:59P Dictated by : CARLOS YOUNGER MD This examination was interpreted and the report reviewed and electronically signed by: CARLOS YOUNGER MD on May 29 2021 9:14PM EST ? CT CERVICAL SPINE WO (more content not included)... Normal [facility] CONSULT HNO ID: [id number] Author: Lilo Mendoza MD Service: Neurology General Author Type: Physician Type: Consults Filed: 05/30/2021 10:56 AM Note Text: [facility] TeleNeurology Consult Note Patient seen using [facility]. Recommendations are placed in the chart. Please review. For questions after hours, when teleneurologist is not available, for [place]: Please Page [phone] for the [facility] from 12pm to 8Am Admitting Provider/Consulted by:Hermes Roca MD Time of Note:05/30/2021 Patient Name:Andrew Sifuentes Admit Date:05/29/2021 Hospital Day:0 CC: altered mental status History of Present Illness: Andrew Sifuentes is a 71 year old unknown handed male with limited information about past medical history including venous insufficiency s/p EVLT, hydrocepalus s/p RN INVASIVE shunt in 1987 with multiple revisions and [...] Reflexes Right Lef (more content not included)... [facility] CONSULT PROGon 05-30-2021 CONSULT PROG [facility] CONSULT PROG HNO ID: [id number] Author: Shannon Gutier[facility] Service: Pharmacy Author Type: Pharmacist Type: Consult Progress Note Filed: 05/30/2021 2:35 PM Note Text: PHARMACY VANCOMYCIN DOSING NOTE Patient Name: Andrew Sifuentes Admission Date: 05/29/2021 Date of Consult: 05/30/2021 Time of Consult: 2:32 PM Indication: possible P[employer]ING G[employer]AGE MANAGER infection Goal Range: 15-20 mcg/mL RECOMMENDATIONS/PLAN: [...] any questions, please contact inpatient pharmacy at [phone]. Age: [age] year old Allergies: ALLERGIES Allergen [...] Levels: No results found for: IMANI [facility] Normal [facility] Creatinineon 05-30-2021 Creatinine [Mass/Vol] 0.86 mg/dL Normal 0.73-1.22 [facility] Comment on above: Performed By: #### C RET1 ####[facility] [address] [place] [phone] eGFR- Amer. >60 Normal [facility] Comment on above: Performed By: #### C RET1 ####[facility] [address] [place] [phone] eGFR-All Other Races >60 Normal [facility] Comment on above: Result Comment: eGFR [...] at [email or web address]. Performed By: #### C RET1 ####[facility] [address] [place] [phone] Crypto Antigen Deton 022 Crypto Antigen Det Sp. Request/Comment: - SST Test Result - Duplicate request Account Credited [facility] Comment on above: Performed By: #### C AD #### [facility] [address] [place] [address] [facility] [address] [place] [address] Crypto Antigen Det Sp. Request/Comment: - SST Test Result - Cryptococcal antigen detection result: Negative By latex agglutination [facility] Comment on above: Performed By: #### C AD #### [facility] [address] [place] [phone] [facility] [address] [place] [address] ED NOTEon 05-30-2021 ED NOTE HNO ID: [id number] Author: Aletha Lopez RN Service: ? Author Type: Registered Nurse Type: ED Notes Filed: 05/29/2021 11:16 PM Note Text: Patient changed for incontinent urine, labs redrawn and sent. Patient aware of plan to be admitted and agrees with plan Normal [facility] HISTORY PHYSICALon HISTORY PHYSICAL Normal [facility] HISTORY PHYSICAL HNO ID: [id number] Author: Hermes Roca MD Service: Hospital Medicine Author Type: Physician Type: HANDP Filed: 05/30/2021 1:03 AM Note Text: DEPARTMENT OF HOSPITAL MEDICINE HISTORY AND PHYSICAL EXAM SERVICE DATE: 05/29/2021 SERVICE TIME: 11:18 PM Primary Care Physician: Mateus Burris MD NIGHT AND WEEKEND COVERAGE: Please page [phone] until 7:30am this morning. After 7:30am please check the treatment team banner and page the appropriate service. 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 Normal [facility] Magnesium SerPl-mCncon 05-30 Magnesium [Mass/Vol] 2.5 mg/dL High 1.7-2.3 [facility] Comment on above: Order Comment: Speci men Type: BLOOD SPECIMEN Performed By: #### 1 9123-9, 2777-1 ####[facility]ATORYCLIA [id number] [address] STATES [facility] NURSING PROGon 05-30-2021 NURSING PROG HNO ID: [id number] Author: Precious Cervantes RN Service: ? Author Type: Registered Nurse Type: Nursing Progress Note Filed: 05/30/2021 11:26 AM Note Text: Nursing Progress Note Patient Name: Andrew Sifuentes Patient Location: [place] [address]/[id number] Daily Note: 0700- Report received from shift superintendent RN, patient resting in bed at this time, call light within reach, bed low and locked. Asked the patient to state his name because shift superintendent RN was unable to complete his admission [...] This note was completed by: Precious Cervantes [facility] NURSING PROG HNO ID: [id number] Author: Lyubov Day RN Service: ? Author Type: Registered Nurse Type: Nursing Progress Note Filed: 05/30/2021 1:27 AM Note Text: Nursing Progress Note Patient Name: Andrew Sifuentes Patient Location: [id number]/[id number] 0100: Patient is unresponsive to questions. Patient [...] This note was completed by: Lyubov Day [facility] Phosphate SerPl-mCncon 05-30 Phosphate [Mass/Vol] 3.5 mg/dL Normal 2.7-4.8 [facility] Comment on above: Order Comment: Speci men Type: BLOOD SPECIMEN Performed By: #### 1 9123-9, 2777-1 ####[facility]ORATORYCLIA [id number] [place] [address] [place] Sepsis Lactateon 05-30-2021 Sepsis Lactate 1.5 mmol/L Normal 0.5-2.0 [facility] Comment on above: Performed By: #### S LACT ####[facility] [address] [place] [phone] Syphilis Ttl w/Reflxon 05-30 Syphilis Interp Cannot exclude recen t Treponemal infection if specimen collected within 7 to 10 days after appearance of suspect lesions or 2 to 3 weeks after an exposure. Clinical correlation is required. Normal [facility] Comment on above: Performed By: #### S SAMUEL RUCKER ####[place] [id number] [place], [place] [phone] Syphilis Screen Rslt Non-Reactive Normal Non Reactive [facility] Comment on above: Performed By: #### S SAMUEL RUCKER ####[place] [id number] [place], [place] [phone] THERAPY NTon 05-30-2021 THERAPY NT HNO ID: [id number] Author: RADHA Andres/Felecia Service: Occupational Therapy Author Type: Occupational Therapist Type: Therapy (PT/OT/Speech/Resp) Filed: 05/30/2021 10:29 AM Note Text: OCCUPATIONAL THERAPY MISSED VISIT SERVICE DATE: 05/30/2021 SERVICE TIME: 1017 to 1019 ROOM: [place] [address] Attempted Evaluation. Patient not seen due to Not following commands. Per nursing patient was seen by neuro and they are talking about having him transferred to [facility] secondary to shunt concerns. Will re attempt in the event patient continues to be admitted at [place] and is able to participate. SIGNATURE: RADHA Andres/Felecia PATIENT NAME: Andrew Sifuentes DATE: May 30, 2021 TIME: 10:21 AM [facility] THERAPY NT HNO ID: [id number] Author: Bette Velasquez PT Service: Physical Therapy Author Type: Physical Therapist Type: Therapy (PT/OT/Speech/Resp) Filed: 05/30/2021 8:42 AM Note Text: PHYSICAL THERAPY MISSED VISIT SERVICE DATE: 05/30/2021 SERVICE TIME: 0840 to 0840 ROOM: [place] [address] Attempted Evaluation. Patient not seen due to (pt difficult to awake per RN, very lethargic). Will re-attempt when schedule permits. SIGNATURE: Bette Velasquez PT PATIENT NAME: Andrew Sifuentes DATE: May 30, 2021 TIME: 8:41 AM Normal [facility] Toxicology Screen,Uron 05-30 Amphetamines, Urine Negative Normal Negative [facility] Comment on above: Result Comment: Cuto ff threshold at 1000 ng/mL. Performed By: #### C AD #### [facility] [address] [place] [address] [facility] [address] [place], [place] [address] Barbiturates, Urine Negative Normal Negative [facility] Comment on above: Result Comment: Cuto ff threshold at 200 ng/mL. Performed By: #### C AD #### [facility] [address] [place] [phone] [facility] [address] [place] [address] Benzodiazepines, Ur Negative Normal Negative [facility] Comment on above: Result Comment: Cuto ff threshold at 200 ng/mL. Performed By: #### C AD #### [facility] [place] [phone] [place] [address] Cannabinoids, Urine Negative Normal Negative [facility] Comment on above: Result Comment: Cuto ff threshold at 50 ng/mL. Performed By: #### C AD #### [facility] [place] [address] Cocaine, Urine Negative Normal Negative [facility] Comment on above: Result Comment: Cuto ff threshold at 300 ng/mL. Performed By: #### C AD #### [facility] [place] [phone] [place] [address] Opiates, Urine Negative Normal Negative [facility] Comment on above: Result Comment: Cuto ff threshold at 300 ng/mL. Performed By: #### C AD #### [facility] [address] [place], [place] [phone] [place] [address] Oxycodone, Urine Negative Normal Negative [facility] Comment on above: Result Comment: Cuto [...] on the same specimen through Client Services ([phone]) if contacted within 48 hours of initial testing. [1]Substance Abuse and Mental Health Services Administration (2012). Clinical Drug Testing in Primary Care Technical Assistance Publication Series 32. Department of Health and Human Services, [place], p.10. Performed By: #### C AD #### [facility] [address] [place] [phone] Phencyclidine, Urine Negative Normal Negative [facility] Comment on above: Result Comment: Cuto ff threshold at 25 ng/mL. Performed By: #### C AD #### [facility] [address] [place] [phone] Troponin Ton 05-30-2021 Troponin T <0.010 Normal 0.000-0.029 [facility] Comment on above: Performed By: #### T NT ####[facility] [address] [place], [place] [phone] Urinalysison 05-30-2021 Bilirubin, Urine Negative Normal Negative [facility] Comment on above: Performed By: #### C AD #### [facility] [address] [place] [phone] Clarity (U) Slightly Cloudy Critically abnormal Clear [facility] Comment on above: Performed By: #### C AD #### [facility] [address] [place] [phone] Color (U) Yellow Normal Yellow [facility] Comment on above: Performed By: #### C AD #### [facility] [address] [place], [place] [phone] Glucose Ql (U) Negative Normal Negative [facility] Comment on above: Performed By: #### C AD #### [facility] [address] [place] [address] [facility] [address] [place], [place] [address] Hemoglobin/Blood,Ur Negative Normal Negative [facility] Comment on above: Performed By: #### C AD #### [facility] [address] [place] [address] [facility] [address] [place], [place] [address] Ketones Ql (U) Negative Normal Negative [facility] Comment on above: Performed By: #### C AD #### [facility] [address] [place] [address] [facility] [address] [place], [place] [address] Leukest Negative Normal Negative [facility] Comment on above: Performed By: #### C AD #### [facility] [address] [place] [address] [facility] [address] [place], [place] [address] Nitrite Ql (U) Negative Normal Negative [facility] Comment on above: Performed By: #### C AD #### [facility] [address] [place] [address] [facility] [address] [place], [place] [address] pH (U) 8.5 [pH] High 5.0-8.0 [facility] Comment on above: Performed By: #### C AD #### [facility] [address] [place] [address] [facility] [address] [place], [place] [address] Protein, Urine Negative Normal Negative [facility] Comment on above: Performed By: #### C AD #### [facility] [address] [place] [address] [facility] [address] [place], [place] [address] Specific Artesian, Ur 1.015 Normal 1.005-1.030 [facility] Comment on above: Performed By: #### C AD #### [facility] [address] [place] [address] [facility] [address] [place], [place] [address] Urobilinogen Qn (U) 0.2 {Marianne'U}/dL Normal 0.2-1.0 [facility] Comment on above: Performed By: #### C AD #### [facility] [address] [place] [address] [place] [address] Vitamin B1, Whole Blon 05-30 Vitamin B1 (TDP), WB 207.1 nmol/L Normal 84.0-213.0 [facility] Comment on above: Result Comment: This assay measures the concentration of thiamine diphosphate (TDP), the primary active form of vitamin B1. Approximately 90 percent of vitamin B1 present in whole blood is TDP. Thiamine and thiamine monophosphate, which comprise the remaining 10 percent, are not measured. This test was developed and its performance characteristics determined by [facility]'s Isrrael Perez [facility] [place] ( [facility]). It has not been cleared or approved by the FDA. [facility] is regulated under CLIA as qualified to perform high complexity testing. This test is used for clinical purposes. It should not be regarded as investigational or for research. Performed By: #### S YPHTX, B1WB ####[facility] [place], [place] [phone] Vitamin B12on 05-30-2021 Cobalamin (Vitamin B12) [Mass/Vol] 494 pg/mL Normal 232-1245 [facility] Comment on above: Performed By: #### C AD #### [facility] [address] [place] [address] [place] [address] [place], [place] [address] ALLIED HEALTHon 05-29-2021 ALLIED HEALTH HNO ID: [id number] Author: RT Kitty(R) Service: Radiology Author Type: Technologist Type: [facility] Filed: 05/29/2021 8:51 PM Note Text: Radiology [...] RT Kitty(R) May 29, 2021 8:51 PM [facility] HNO ID: [id number] Author: Markie Fish Service: ? Author Type: Animation Director Type: [facility] Filed: 05/29/2021 8:39 PM Note Text: Radiology [...] Fish May 29, 2021 8:38 PM Normal [facility] CBC and Differentialon 05-29 Abs Baso 0.05 k/uL Normal <0.11 [facility] Comment on above: Performed By: #### C MP, MG1, CBCDIF ####[facility] [address] [place], [place] [phone] Abs Childress 0.72 k/uL Normal <0.87 [facility] Comment on above: Performed By: #### C MP, MG1, CBCDIF ####[facility] [address] [place] [address] Abs Neut 7.86 k/uL High 1.45-7.50 [facility] Comment on above: Performed By: #### C MP, MG1, CBCDIF ####[facility] [address] [place] [address] Absolute nRBC <0.01 Normal <0.01 [facility] Comment on above: Performed By: #### C MP, MG1, CBCDIF ####[place] [address] Basophils/100 WBC (Bld) 0.5 % Normal [facility] Comment on above: Performed By: #### C MP, MG1, CBCDIF ####[place] [address] DTYPE Auto Diff Normal [facility] Comment on above: Performed By: #### C MP, MG1, CBCDIF ####[place] [address] Eosinophils (Bld) [#/Vol] 0.10 10*3/uL Normal <0.46 [facility] Comment on above: Performed By: #### C MP, MG1, CBCDIF ####[place] [address] Eosinophils/100 WBC (Bld) 0.9 % Normal [facility] Comment on above: Performed By: #### C MP, MG1, CBCDIF ####[place] [address] Erythrocyte distribution width (RBC) [Ratio] 15.5 % High 11.5-15.0 [facility] Comment on above: Performed By: #### C MP, MG1, CBCDIF ####[facility] [address] [place] [address] Hematocrit (Bld) [Volume fraction] 41.6 % Normal 39.0-51.0 [facility] Comment on above: Performed By: #### C MP, MG1, CBCDIF ####[facility] [address] [place] [address] Hemoglobin (Bld) [Mass/Vol] 12.7 g/dL Low 13.0-17.0 [facility] Comment on above: Performed By: #### C MP, MG1, CBCDIF ####[facility] [address] [place] [address] Lymphocytes (Bld) [#/Vol] 2.04 10*3/uL Normal 1.00-4.00 [facility] Comment on above: Performed By: #### C MP, MG1, CBCDIF ####[facility] [address] [place], [place] [phone] Lymphocytes/100 WBC (Bld) 18.9 % Normal [facility] Comment on above: Performed By: #### C MP, MG1, CBCDIF ####[facility] [address] [place] [address] MCH 27.3 pG Normal 26.0-34.0 [facility] Comment on above: Performed By: #### C MP, MG1, CBCDIF ####[facility] [address] [place] [address] MCHC (RBC) [Mass/Vol] 30.5 g/dL Normal 30.5-36.0 [facility] Comment on above: Performed By: #### C MP, MG1, CBCDIF ####[facility] [address] [place], [place] [phone] MCV (RBC) [Entitic vol] 89.5 fL Normal 80.0-100.0 [facility] Comment on above: Performed By: #### C MP, MG1, CBCDIF ####[facility] [address] [place], [place] [phone] Monocytes/100 WBC (Bld) 6.7 % Normal [facility] Comment on above: Performed By: #### C MP, MG1, CBCDIF ####[facility] N[address]qit7006 [address] Neutrophils/100 WBC (Bld) 73.0 % Normal [facility] Comment on above: Performed By: #### C MP, MG1, CBCDIF ####[facility] Mem[address]hp[address] NRBCs 0.0 /100 WBC Normal 0 [facility] Comment on above: Performed By: #### C MARÍA ELENA MG1, CBCDIF ####[facility] Dsxy[address]tegbg9423 [address] Platelet mean volume (Bld) [Entitic vol] 10.1 fL Normal 9.0-12.7 [facility] Comment on above: Performed By: #### C MP, MG1, CBCDIF ####[facility] [address] [place] [phone] Platelets (Bld) [#/Vol] 291 10*3/uL Normal 150-400 [facility] Comment on above: Performed By: #### C MARÍA ELENA MG1, CBCDIF ####[facility] [address] [place], [place] [phone] RBC (Bld) [#/Vol] 4.65 10*6/uL Normal 4.20-6.00 [facility] Comment on above: Performed By: #### C MP, MG1, CBCDIF ####[facility] [address] [place] [address] WBC (Bld) [#/Vol] 10.77 10*3/uL Normal 3.70-11.00 [facility] Comment on above: Performed By: #### C MP, MG1, CBCDIF ####[facility] [address] [place], [place] [phone] CT BRAIN WO IVCONon 05-29-19 CT BRAIN WO IVCON * * *Final Report* * * DATE OF EXAM: May 29 2021 8:42PM [facility] 0504 - CT BRAIN WO IVCON / PROCEDURE REASON: Head trauma, headache * * * * Physician Interpretation * * * * EXAMINATION: CT CERVICAL SPINE WO IVCON, CT BRAIN WO IVCON CLINICAL HISTORY: C-spine trauma, NEXUS/CCR positive (accession [id number]), Head trauma, headache (accession [id number]) TECHNIQUE: Serial axial unenhanced images were obtained from the vertex to the foramen magnum. Spiral, high resolution axial unenhanced images were obtained from the skull base to the cervicothoracic junction with sagittal and coronal planar reconstructions. Dose-Length Product (DLP): 2132 mGy*cm. CT Dose Reduction Employed: Automated exposure control (AEC) COMPARISON: 08/13/[address] RESULT: BRAIN: Post-operative change: Right parietal approach RN INVASIVE shunt is intact. The intracranial fragments of [...] vertebrae with counting from the craniocervical junction. Wash [facility] Transcribe Date/Time: May 29 2021 8:59P Dictated by : CARLOS YOUNGER MD This examination was interpreted and the report reviewed and electronically signed by: CARLOS YOUNGER MD on May 29 2021 9:14PM EST [id number] [facility] CT CERVICAL SPINE WO IVCONon 05-29-2021 CT CERVICAL SPINE WO IVCON * * *Final Report* * * DATE OF EXAM: May 29 2021 8:42PM [facility] 0505 - CT CERVICAL SPINE WO IVCON / PROCEDURE REASON: C-spine trauma, NEXUS/CCR positive * * * * Physician Interpretation * * * * EXAMINATION: CT CERVICAL SPINE WO IVCON, CT BRAIN WO IVCON CLINICAL HISTORY: C-spine trauma, NEXUS/CCR positive (accession [id number]), Head trauma, headache (accession [id number]) TECHNIQUE: Serial axial unenhanced images were obtained from the vertex to the foramen magnum. Spiral, high resolution axial unenhanced images were obtained from the skull base to the cervicothoracic junction with sagittal and coronal planar reconstructions. Dose-Length Product (DLP): 2132 mGy*cm. CT Dose Reduction Employed: Automated exposure control (AEC) COMPARISON: 08/13/[address] RESULT: BRAIN: Post-operative change: Right parietal approach RN INVASIVE shunt is intact. The intracranial fragments of [...] vertebrae with counting from the craniocervical junction. Wash Driller: [facility] Transcribe Date/Time: May 29 2021 8:59P Dictated by : CARLOS YOUNGER MD This examination was interpreted and the report reviewed and electronically signed by: CARLOS YOUNGER MD on May 29 2021 9:14PM EST [id number] [facility] Cepheid Bill only (EXCFR)on 05-29-2021 Cepheid Bill only (EXCFR) Billed for services performed Normal [facility] Comment on above: Performed By: #### C AD #### [facility] [address] [place] [address] [facility] [address] [place], [place] [address] Comp Metabolic Panelon 05-29 Albumin [Mass/Vol] 4.1 g/dL Normal 3.9-4.9 [facility] Comment on above: Performed By: #### C MP ####[facility] [address] [place] [address] ALP [Catalytic activity/Vol] 86 U/L Normal 38-113 [facility] Comment on above: Performed By: #### C MP ####[facility] [address] [place] [address] ALT [Catalytic activity/Vol] 15 U/L Normal 10-54 [facility] Comment on above: Performed By: #### C MP ####[facility] [address] [place] [address] Anion gap [Moles/Vol] 9 mmol/L Normal 9-18 [facility] Comment on above: Performed By: #### C MP ####[facility] [address] [place] [address] AST [Catalytic activity/Vol] 22 U/L Normal 14-40 [facility] Comment on above: Performed By: #### C MP ####[facility] [address] [place] [address] Bilirubin [Mass/Vol] 0.2 mg/dL Normal 0.2-1.3 [facility] Comment on above: Performed By: #### C MP ####[facility] [address] [place] [address] Calcium [Mass/Vol] 9.1 mg/dL Normal 8.5-10.2 [facility] Comment on above: Performed By: #### C MP ####[facility] [address] [place] [address] Chloride [Moles/Vol] 103 mmol/L Normal 97-105 [facility] Comment on above: Performed By: #### C MP ####[facility] Vvx[address]qw4509 [address] CO2 [Moles/Vol] 29 mmol/L Normal 22-30 [facility] Comment on above: Performed By: #### C MP ####[facility] [address] [place] [phone] Creatinine [Mass/Vol] 0.89 mg/dL Normal 0.73-1.22 [facility] Comment on above: Performed By: #### C MP ####[facility] [address] [place] [address] eGFR- Amer. >60 Normal [facility] Comment on above: Performed By: #### C MP ####[facility] [address] [place] [address] eGFR-All Other Races >60 Normal [facility] Comment on above: Result Comment: eGFR [...] at [email or web address]. Performed By: #### C MP ####[facility] Ut[address]tyyqdom8282 [address] Glucose [Mass/Vol] 120 mg/dL High 74-99 [facility] Comment on above: Result Comment: The [place] Diabetes Association (ADA) provides guidance for cutoff [...] Standards of Medical Care in Diabetes 2016, [place] [employer] Association. Diabetes Care. 2016.39(Suppl 1). Performed By: #### C MP ####[facility] [address] [place] [address] Potassium [Moles/Vol] 4.2 mmol/L Normal 3.7-5.1 [facility] Comment on above: Performed By: #### C MP ####[place] [address] Protein [Mass/Vol] 7.1 g/dL Normal 6.3-8.0 [facility] Comment on above: Performed By: #### C MP ####[place] [address] Sodium [Moles/Vol] 141 mmol/L Normal 136-144 [facility] Comment on above: Performed By: #### C MP ####[facility] [address] [place] [address] Urea nitrogen [Mass/Vol] 11 mg/dL Normal 9-24 [facility] Comment on above: Performed By: #### C MP ####[place] [address] Albumin [Mass/Vol] 4.1 g/dL Normal 3.9-4.9 [facility] Comment on above: Performed By: #### C MP, MG1, CBCDIF ####[facility] [address] [place] [address] ALP [Catalytic activity/Vol] 86 U/L Normal 38-113 [facility] Comment on above: Performed By: #### C MP, MG1, CBCDIF ####[place] [address] ALT Unable to assay due to interference from hemolysis. Suggest reorder as clinically indicated. Normal 10-54 [facility] Comment on above: Result Comment: Call ed to LISA Rea at [phone] on 05.29.21 by Sabino Performed By: #### C MP, MG1, CBCDIF ####[facility] [address] [place] [address] Anion gap [Moles/Vol] 12 mmol/L Normal 9-18 [facility] Comment on above: Performed By: #### C MP, MG1, CBCDIF ####[facility] [address] [place] [address] AST Unable to assay due to interference from hemolysis. Suggest reorder as clinically indicated. Normal 14-40 [facility] Comment on above: Result Comment: Call ed to ED Álvaro at 2129 on 05.29.21 by Sabino Performed By: #### C MP, MG1, CBCDIF ####[facility] [address] [place] [address] Bilirubin [Mass/Vol] 0.2 mg/dL Normal 0.2-1.3 [facility] Comment on above: Performed By: #### C MP, MG1, CBCDIF ####[facility] [address] [place] [address] Calcium [Mass/Vol] 9.0 mg/dL Normal 8.5-10.2 [facility] Comment on above: Performed By: #### C MP, MG1, CBCDIF ####[facility] [address] [place] [address] Chloride [Moles/Vol] 102 mmol/L Normal 97-105 [facility] Comment on above: Performed By: #### C MP, MG1, CBCDIF ####[facility] [address] [place] [address] CO2 [Moles/Vol] 27 mmol/L Normal 22-30 [facility] Comment on above: Performed By: #### C MP, MG1, CBCDIF ####[facility] [address]frs[address] [place] [address] Creatinine [Mass/Vol] 0.75 mg/dL Normal 0.73-1.22 [facility] Comment on above: Performed By: #### C MP, MG1, CBCDIF ####[facility] [address] [place] [address] eGFR- Amer. >60 Normal [facility] Comment on above: Performed By: #### C MP, MG1, CBCDIF ####[facility] [address] [place] [phone] eGFR-All Other Races >60 Normal [facility] Comment on above: Result Comment: eGFR [...] Performed By: #### C MP, MG1, CBCDIF ####[facility] [address] [place] [phone] Glucose [Mass/Vol] 112 mg/dL High 74-99 [facility] Comment on above: Result Comment: The [place] Diabetes Association (ADA) provides guidance for cutoff [...] Standards of Medical Care in Diabetes 2016, [place] Diabetes [employer]. Diabetes Care. 2016.39(Suppl 1). Performed By: #### C MP, MG1, CBCDIF ####[facility] [address] [place] [phone] Potassium Unable to assay due to interference from hemolysis. Suggest reorder as clinically indicated. Normal 3.7-5.1 [facility] Comment on above: Result Comment: Call ed to ED Álvaro at 2129 on 05.29.21 by Sabino Performed By: #### C MP, MG1, CBCDIF ####[facility] [address] [place] [phone] Protein [Mass/Vol] 7.3 g/dL Normal 6.3-8.0 [facility] Comment on above: Performed By: #### C MP, MG1, CBCDIF ####[facility] [address] [place] [phone] Sodium [Moles/Vol] 141 mmol/L Normal 136-144 [facility] Comment on above: Performed By: #### C MP, MG1, CBCDIF ####[facility] [address] [place] [phone] Urea nitrogen [Mass/Vol] 11 mg/dL Normal 9-24 [facility] Comment on above: Performed By: #### C MP, MG1, CBCDIF ####[facility] [address] [place] [phone] ED PROV NOTEon 05-29-2021 ED PROV NOTE HNO ID: [id number] Author: Shanell Slaughter MD Service: ? Author [...] No radiographic evidence of acute cardiopulmonary disease. Wash Driller: [facility] Transcribe Date/Time: May 29 [...] vertebrae with counting from the craniocervical junction. Wash Driller: [facility] Transcribe Date/Time: May 29 [...] vertebrae with counting from the craniocervical junction. Wash Driller: [facility] Transcribe Date/Time: May 29 (more content not included)... Normal [facility] ED PROV NOTE HNO ID: [id number] Author: Flavio Pandya DO Service: Emergency Medicine Author Type: Physician Type: ED Provider Notes Filed: 05/29/2021 7:10 PM Note Text: ED Provider Note Patient Name: Andrew Sifuentes SERVICE DATE: 05/29/21 History Patient presents with: Fall 71 yo male non-smoker, hx of HTN, 2 RN INVASIVE shunts, PE (not on anticoagulation now), asthma, [...] with assistance from bedside clinician. Provider Location: [facility] Patient Location: Outpatient Hospital Physical Exam Vital [...] Flavio Pandya, DO Flavio Pandya, 05/29/211909 Normal [facility] EXCOVD, Flu A/B, RSV (On int erfaces 1102,1120)on 05-29-2021 Influenza A PCR Negative Normal [facility] Comment on above: Performed By: #### C AD #### [facility] [address] [place] [phone] [place] [phone] [place] [address] Influenza B PCR Negative Normal [facility] Comment on above: Performed By: #### C AD #### [facility] [address] [place], [place] [phone] [place] [address] RSV PCR Negative Normal [facility] Comment on above: Result Comment: This test has been authorized by [facility] under an Emergency Use Authorization (EUA). Performed By: #### C AD #### [facility] [address] [place], [place] [id number] [place] [address] SARS-CoV-2 (COVID-19) RNA MEGAN+probe Ql (Unsp spec) UPPER RESPIRATORY TRACT SWAB Normal [facility] Comment on above: Performed By: #### C AD #### [facility] [address] [place], [place] [id number] [place] [address] SARS-CoV-2 (COVID-19) RNA MEGAN+probe Ql (Unsp spec) Negative for COVID19 (SARS CoV2) by RT-PCR or equivalent method. Normal Negative for COVID19 (SARS CoV2) by RT-PCR or equivalent method. [facility] Comment on above: Result Comment: This test has been authorized by [facility] under an Emergency Use Authorization (EUA). Performed By: #### C AD #### [facility] [address] [place], [place] [phone] [place] [address] Magnesiumon 05-29-2021 Magnesium [Mass/Vol] 2.2 mg/dL Normal 1.7-2.3 [facility] Comment on above: Performed By: #### C MP, MG1, CBCDIF ####[phone] NT Pro BNPon 05-29-2021 PRO B Natr Peptide 303 pg/mL High <125 [facility] Comment on above: Performed By: #### N TBNP ####[facility] [address]mi[phone] Troponin Ton 05-29-2021 Troponin T <0.010 Normal 0.000-0.029 [facility] Comment on above: Performed By: #### T NT ####[facility] [address] [place] [phone] Troponin T Unable to assay due to interference from hemolysis. Suggest reorder as clinically indicated. Normal 0.000-0.029 [facility] Comment on above: Result Comment: Call ed to ED Álvaro at 2129 on 05.29.21 by Sabino Performed By: #### T NT ####[facility] [address] [place] [phone] XR CHEST 1V FRONTAL PORTon 0 05-29-2021 [...] No radiographic evidence of acute cardiopulmonary disease. Wash Driller: OG Transcribe Date/Time: May 29 2021 8:53P Dictated by : ROLY BANGURA MD This examination was interpreted and the report reviewed and electronically signed by: ROLY BANGURA MD on May 29 2021 8:54PM EST [id number] Normal [facility] COMPREHENSIVE PANELon 2020 Albumin [Mass/Vol] 3.9 g/dL Normal 3.4 - 5.0 [facility] Comment on above: Order Comment: JEREMIAS NT FASTING Performed By: #### C MP #### [facility] [address] [place] [address] ALP [Catalytic activity/Vol] 71 U/L Normal 33 - 136 [facility] Comment on above: Order Comment: PATIE NT FASTING Performed By: #### C MP #### [facility] [address] [place] [address] ALT [Catalytic activity/Vol] 19 U/L Normal 10 - 52 [facility] Comment on above: Order Comment: PATIE NT FASTING Result Comment: Nasima ents treated with Sulfasalazine may generate falsely decreased results for ALT. Performed By: #### C MP #### [facility] [address] [place] [address] Anion gap [Moles/Vol] 13 mmol/L Normal 10 - 20 [facility] Comment on above: Order Comment: PATIE NT FASTING Performed By: #### C MP #### [facility] [address] [place] [address] AST [Catalytic activity/Vol] 20 U/L Normal 9 - 39 [facility] Comment on above: Order Comment: PATIE NT FASTING Performed By: #### C MP #### [facility] [address] [place] [address] Bilirubin [Mass/Vol] 0.6 mg/dL Normal 0.0 - 1.2 [facility] Comment on above: Order Comment: PATIE NT FASTING Performed By: #### C MP #### [facility] [address] [place] [address] Calcium [Mass/Vol] 9.0 mg/dL Normal 8.6 - 10.6 [facility] Comment on above: Order Comment: PATIE NT FASTING Performed By: #### C MP #### [facility] [address] [place] [address] Chloride [Moles/Vol] 103 mmol/L Normal 98 - 107 [facility] Comment on above: Order Comment: PATIE NT FASTING Performed By: #### C MP #### [facility] [address] [place] [address] Creatinine [Mass/Vol] 0.94 mg/dL Normal 0.50 - 1.30 [facility] Comment on above: Order Comment: PATIE NT FASTING Performed By: #### C MP #### [facility] [address] [place] [address] GFR- AM. >60 Normal >60 [facility] Comment on above: Order Comment: PATIE NT FASTING Result Comment: CALC ULATIONS OF ESTIMATED GFR ARE PERFORMED USING THE MDRD STUDY EQUATION FOR THE IDMS-TRACEABLE CREATININE METHODS. CLIN CHEM 2007;53:766-72 Performed By: #### C MP #### [place] [address] [place] [address] GFR-NON AM. >60 Normal >60 [facility] Comment on above: Order Comment: PATIE NT FASTING Performed By: #### C MP #### [place] [address] [place] [address] Glucose [Mass/Vol] 85 mg/dL Normal 74 - 99 [facility] Comment on above: Order Comment: PATIE NT FASTING Performed By: #### C MP #### [facility] [address] [place] [address] HCO3 (Bld) [Moles/Vol] 30 mmol/L Normal 21 - 32 [facility] Comment on above: Order Comment: PATIE NT FASTING Performed By: #### C MP #### [place] [address] [place] [address] Potassium [Moles/Vol] 4.1 mmol/L Normal 3.5 - 5.3 [facility] Comment on above: Order Comment: PATIE NT FASTING Performed By: #### C MP #### [facility] [address] [place] [address] Protein [Mass/Vol] 6.6 g/dL Normal 6.4 - 8.2 [facility] Comment on above: Order Comment: PATIE NT FASTING Performed By: #### C MP #### [facility] [address] [place] [address] Sodium [Moles/Vol] 142 mmol/L Normal 136 - 145 [facility] Comment on above: Order Comment: PATIE NT FASTING Performed By: #### C MP #### [facility] [address] [place] [address] Urea nitrogen [Mass/Vol] 14 mg/dL Normal 6 - 23 [facility] Comment on above: Order Comment: PATIE NT FASTING Performed By: #### C MP #### [facility] [address] [place] [address] LIPID PANEL (CORONARY RISK 2 )on 09-03-2020 Cholesterol [Mass/Vol] 210 mg/dL High 0 - 199 [facility] Comment on above: Order Comment: [...] Performed By: #### L IPID #### [facility] [address] [place] [address] Cholesterol in HDL [Mass/Vol] 50.1 mg/dL Normal [facility] Comment on above: Order Comment: PATIE NT FASTING Result Comment: . AGE VERY LOW LOW NORMAL HIGH 0-19 Y < 35 < 40 40-45 ---- 20-24 Y ---- < 40 >45 ---- >24 Y ---- < 40 40-60 >60 . Performed By: #### L IPID #### [facility] [address] [place] [address] Cholesterol in LDL [Mass/Vol] 130 mg/dL High 0 - 99 [facility] Comment on above: Order Comment: PATIE NT FASTING Result Comment: . NEAR BORD AGE DESIRABLE OPTIMAL HIGH HIGH VERY HIGH 0-19 Y 0 - 109 --- 110-129 >/= 130 ---- 20-24 Y 0 - 119 --- 120-159 >/= 160 ---- >24 Y 0 - 99 100-129 130-159 160-189 >/=190 . Performed By: #### L IPID #### [facility] [address] [place] [address] Cholesterol in VLDL [Mass/Vol] 30 mg/dL Normal 0 - 40 [facility] Comment on above: Order Comment: PATIE NT FASTING Performed By: #### L IPID #### [facility] [address] [place] [address] Cholesterol.total/Chol esterol in HDL [Mass ratio] 4.2 {ratio} Normal [facility] Comment on above: Order Comment: PATIE NT FASTING Result Comment: REF VALUES DESIRABLE < 3.4 HIGH RISK > 5.0 Performed By: #### L IPID #### [facility] [address] [place] [address] Triglyceride [Mass/Vol] 152 mg/dL High 0 - 149 [facility] Comment on above: Order Comment: [...] dosing. Performed By: #### L IPID #### [facility] [address] [place] [address] PROSTATE SPEC.AG,SCREENon PROSTATE SPEC.AG,SCREEN 0.37 ng/mL Normal 0.00 - 4.00 [facility] Comment on above: Order Comment: PATIE NT FASTING Result Comment: The FDA requires that the method used for PSA assay be reported to the physician. Values obtained with different assay methods must not be used interchangeably. This test was performed at [facility] using the Siemens SocialStayllAlo7 PSA method, which is a sandwich immunoassay using chemiluminescence for quantitation. The assay is approved for measurement of prostate-specific antigen (PSA) in serum and may be used in conjunction with a digital rectal examination in men 50 years and older as an aid in detection of prostate cancer. 4-Itxyz-wjzmsdqzo inhibitors (e.g. Proscar, Finasteride, Avodart, Dutasteride and Elizabeth) for the treatment of BPH have been shown to lower PSA levels by an average of 50% after 6 months of treatment. Performed By: #### P SAS #### [facility] [address] [place] [address] TSH WITH REFLEX TO FREE T4 I F ABNORMALon 09-03-2020 TSH Qn 0.97 m[IU]/L Normal 0.44 - 3.98 [facility] Comment on above: Order Comment: PATIE NT FASTING Result Comment: TSH testing is performed using different testing methodology at [facility] than at other [facility]. Direct result comparisons should only be made within the same method. Performed By: #### T HYDS #### [facility] [address] [place] [address] CBC AND DIFFERENTIALon 09-02 % AUTOMATED IMMATURE GRAN 0.3 % Normal 0.0 - 0.9 [facility] Comment on above: Order Comment: PATIE NT FASTING Result Comment: [place] Granulocyte Count (IG) includes promyelocytes, myelocytes and metamyelocytes but does not include bands. Percent differential counts (%) should be interpreted in the context of the absolute cell counts (cells/L). Performed By: #### C BCDF #### [facility] [address] [place] [address] Basophils (Bld) [#/Vol] 0.07 10*3/uL Normal 0.00 - 0.10 [facility] Comment on above: Order Comment: PATIE NT FASTING Result Comment: Auto mated WBC differential has been confirmed by manual smear. Performed By: #### C BCDF #### [facility] [address] [place] [address] Basophils/100 WBC (Bld) 0.9 % Normal 0.0 - 2.0 [facility] Comment on above: Order Comment: PATIE NT FASTING Performed By: #### C BCDF #### [facility] [address] [place] [address] Eosinophils (Bld) [#/Vol] 0.21 10*3/uL Normal 0.00 - 0.70 [facility] Comment on above: Order Comment: PATIE NT FASTING Performed By: #### C BCDF #### [facility] [address] [place] [address] Eosinophils/100 WBC (Bld) 2.8 % Normal 0.0 - 6.0 [facility] Comment on above: Order Comment: PATIE NT FASTING Performed By: #### C BCDF #### [facility] [address] [place] [address] Lymphocytes (Bld) [#/Vol] 2.28 10*3/uL Normal 1.20 - 4.80 [facility] Comment on above: Order Comment: PATIE NT FASTING Performed By: #### C BCDF #### [facility] [address] [place] [address] Lymphocytes/100 WBC (Bld) 30.9 % Normal 13.0 - 44.0 [facility] Comment on above: Order Comment: PATIE NT FASTING Performed By: #### C BCDF #### [facility] [address] [place] [address] Monocytes (Bld) [#/Vol] 0.50 10*3/uL Normal 0.10 - 1.00 [facility] Comment on above: Order Comment: PATIE NT FASTING Performed By: #### C BCDF #### [place] [address] [place] [address] Monocytes/100 WBC (Bld) 6.8 % Normal 2.0 - 10.0 [facility] Comment on above: Order Comment: PATIE NT FASTING Performed By: #### C BCDF #### [facility] [address] [place] [address] Neutrophils (Bld) [#/Vol] 4.29 10*3/uL Normal 1.20 - 7.70 [facility] Comment on above: Order Comment: PATIE NT FASTING Performed By: #### C BCDF #### [facility] [address] [place] [address] Neutrophils/100 WBC (Bld) 58.3 % Normal 40.0 - 80.0 [facility] Comment on above: Order Comment: PATIE NT FASTING Performed By: #### C BCDF #### [facility] [address] [place] [address] Erythrocyte distribution width (RBC) [Ratio] 14.6 % High 11.5 - 14.5 [facility] Comment on above: Order Comment: PATIE NT FASTING Performed By: #### C BCDF #### [facility] [address] [place] [address] Hematocrit (Bld) [Volume fraction] 43.1 % Normal 41.0 - 52.0 [facility] Comment on above: Order Comment: PATIE NT FASTING Performed By: #### C BCDF #### [facility] [address] [place] [address] Hemoglobin (Bld) [Mass/Vol] 13.3 g/dL Low 13.5 - 17.5 [facility] Comment on above: Order Comment: PATIE NT FASTING Performed By: #### C BCDF #### [facility] [address] [place] [address] MCHC (RBC) [Mass/Vol] 30.9 g/dL Low 32.0 - 36.0 [facility] Comment on above: Order Comment: PATIE NT FASTING Performed By: #### C BCDF #### [facility] [address] [place] [address] MCV (RBC) [Entitic vol] 92 fL Normal 80 - 100 [facility] Comment on above: Order Comment: PATIE NT FASTING Performed By: #### C BCDF #### [facility] [address] [place] [address] NUCLEATED RBC 0.0 /100 WBC Normal 0.0-0.0 [facility] Comment on above: Order Comment: PATIE NT FASTING Performed By: #### C BCDF #### [facility] [address] [place] [address] Platelets (Bld) [#/Vol] 267 10*3/uL Normal 150 - 450 [facility] Comment on above: Order Comment: PATIE NT FASTING Performed By: #### C BCDF #### [facility] [address] [place] [address] RBC 4.69 x10E12/L Normal 4.50 - 5.90 [facility] Comment on above: Order Comment: PATIE NT FASTING Performed By: #### C BCDF #### [facility] [address] [place] [address] WBC (Bld) [#/Vol] 7.4 10*3/uL Normal 4.4 - 11.3 [facility] Comment on above: Order Comment: PATIE NT FASTING Performed By: #### C BCDF #### [facility] [address] [place] [address] RED CELL MORPHOLOGYon 2020 CHANELL CELLS Few Normal [facility] Comment on above: Order Comment: PATIE NT FASTING Performed By: #### M ORP2 #### [facility] [address] [place] [address] OVALOCYTES Few Normal [facility] Comment on above: Order Comment: PATIE NT FASTING Performed By: #### M ORP2 #### [facility] [address] [place] [address] POLYCHROMASIA Mild Normal [facility] Comment on above: Order Comment: PATIE NT FASTING Performed By: #### M ORP2 #### [facility] [address] [place] [address] RBC FRAGMENTS Few Normal [facility] Comment on above: Order Comment: PATIE NT FASTING Performed By: #### M ORP2 #### [facility] [address] [place] [address] RBC morphology finding Nom (Bld) See Below Normal [facility] Comment on above: Order Comment: PATIE NT FASTING Performed By: #### M ORP2 #### [facility] [address] [place] [address] No Panel Informationon 01-19 76 1 [facility] [place] Work Phone: [phone] [facility] [place] Work Phone: [phone] [facility] [place] Work Phone: [phone] [facility] [place] Work Phone: [phone] [facility] [place] Work Phone: [phone] [facility] [...] [place] Work Phone: [email or web address] ?RetrieveTestByDateTime?P szcduaIQ=[email or web address]&Date=1 09-13-2019&Time=15%3a11%3a 03%3a00&TestType=ECG&Site =1&OutputType=PDF&Ext=PDF [facility] [place] Work Phone: Otheron 11-13-2019 [facility] Complete Blood Count + Diffe rentialon 11-06-2019 Basophils (Bld) [#/Vol] 0.06 {x10E9/L} See Below [facility] Work Phone: Comment on above: Reference Range: 0.0 0 - 0.10 Basophils/100 WBC (Bld) 0.8 % 0.0 - 2.0 [facility] Work Phone: Eosinophils (Bld) [#/Vol] 0.18 {x10E9/L} See Below [facility] Work Phone: Comment on above: Reference Range: 0.0 0 - 0.70 Eosinophils/100 WBC (Bld) 2.5 % 0.0 - 6.0 [facility] Work Phone: Erythrocyte distribution width (RBC) [Ratio] 13.7 % See Below [facility] Work Phone: Comment on above: Reference Range: 11. 5 - 14.5 Hematocrit (Bld) [Volume fraction] 45.5 % See Below [facility] Work Phone: Comment on above: Reference Range: 41. 0 - 52.0 Hemoglobin (Bld) [Mass/Vol] 14.0 g/dL See Below [facility] Work Phone: Comment on above: Reference Range: 13. 5 - 17.5 Lymphocytes (Bld) [#/Vol] 2.15 {x10E9/L} See Below [facility] Work Phone: Comment [...] [Entitic vol] 94 fL 80 - 100 [facility] Work Phone: Monocytes (Bld) [#/Vol] 0.49 {x10E9/L} See Below [facility] Work Phone: Comment on above: Reference Range: 0.1 0 - 1.00 Monocytes/100 WBC (Bld) 6.8 % 2.0 - 10.0 [facility] Work Phone: Neutrophils (Bld) [#/Vol] 4.30 {x10E9/L} See Below [facility] Work Phone: Comment on above: Reference Range: 1.2 0 - 7.70 Neutrophils/100 WBC (Bld) 59.9 % See Below [facility] Work Phone: Comment on above: Reference Range: 40. 0 - 80.0 Platelets (Bld) [#/Vol] 270 {x10E9/L} 150 - 450 [facility] Work Phone: RBC (Bld) [#/Vol] 4.85 {x10E12/L} See Below [facility] Work Phone: Comment on above: Reference Range: 4.5 0 - 5.90 WBC (Bld) [#/Vol] 0.0 {/100_WBC} 0.0-0.0 [facility] Work Phone: WBC (Bld) [#/Vol] 7.2 {x10E9/L} 4.4 - 11.3 [facility] Work Phone: Complete Blood Count + Differential 0.1 % 0.0 - 0.9 [facility] Work Phone: Comment on above: Immature Granulocyte Count (IG) includes promyelocytes, myelocytes and metamyelocytes but does not include bands. Percent differential counts (%) should be interpreted in the context of the absolute cell counts (cells/L). Lipid Panelon 11-06-2019 Cholesterol [Mass/Vol] 181 mg/dL 0 - 199 [facility] Work Phone: Comment [...] dosing. Cholesterol in HDL [Mass/Vol] 52.1 mg/dL [facility] Work Phone: Comment on above: . AGE VERY LOW LOW N ORMAL HIGH 0-19 Y < 35 < 40 40-45 ---- 20-24 Y ---- < 40 >45 ---- >24 Y ---- < 40 40-60 >60. Cholesterol in LDL [Mass/Vol] 97 mg/dL 0 - 99 [facility] Work Phone: Comment on above: . NEAR BORD AGE IZABELLA RABLE OPTIMAL HIGH HIGH VERY HIGH 0-19 Y 0 - 109 --- 110-129 >/= 130 ---- 20-24 Y 0 - 119 --- 120-159 >/= 160 ---- >24 Y 0 - 99 100-129 130-159 160-189 >/=190. Cholesterol.total/Chol esterol in HDL [Mass ratio] 3.5 {ratio} [facility] Work Phone: Comment on above: REF VALUESDESIRABLE < 3.4HIGH RISK > 5.0 Triglyceride [Mass/Vol] 158 mg/dL above high threshold 0 - 149 [facility] Work Phone: Comment on above: [...] Lipid Panel 32 mg/dL 0 - 40 [facility] Work Phone: Metabolic Panelon 11-06-2019 ALP [Catalytic activity/Vol] 70 U/L 33 - 136 [facility] Work Phone: Anion gap [Moles/Vol] 13 mmol/L 10 - 20 [facility] Work Phone: Bilirubin [Mass/Vol] 0.6 mg/dL 0.0 - 1.2 [facility] Work Phone: Calcium [Mass/Vol] 9.4 mg/dL 8.6 - 10.6 [facility] Work Phone: Chloride [Moles/Vol] 99 mmol/L 98 - 107 [facility] Work Phone: CO2 [Moles/Vol] 30 mmol/L 21 - 32 [facility] Work Phone: Creatinine [Mass/Vol] 0.87 mg/dL See Below [facility] Work Phone: Comment on above: Reference Range: 0.5 0 - 1.30 Glucose [Mass/Vol] 89 mg/dL 74 - 99 [facility] Work Phone: Potassium [Moles/Vol] 4.3 mmol/L 3.5 - 5.3 [facility] Physician [facility] Work Phone: Protein [Mass/Vol] 7.3 g/dL 6.4 - 8.2 [facility] Work Phone: Sodium [Moles/Vol] 138 mmol/L 136 - 145 [facility] Work Phone: Urea nitrogen [Mass/Vol] 14 mg/dL 6 - 23 [facility] Work Phone: Otheron 11-06-2019 Albumin BCP dye [Mass/Vol] 4.4 g/dL 3.4 - 5.0 [facility] Work Phone: ALT With P-5'-P [Catalytic activity/Vol] 11 U/L 10 - 52 [facility] Work Phone: Comment on above: Patients treated wit h Sulfasalazine may generate falsely decreased results for ALT. AST With P-5'-P [Catalytic activity/Vol] 17 U/L 9 - 39 [facility] Work Phone: >60 >60 [facility] Work Phone: Comment on above: CALCULATIONS OF LUZMARIA MATED GFR ARE PERFORMED USING THE MDRD STUDY EQUATION FOR THE IDMS-TRACEABLE CREATININE METHODS. CLIN CHEM 2007;53:766-72 Culture, urine Bacteria identified Cx Nom (U) Mixed Gram Pos & Gram Neg Org [facility] Work Phone: Bacteria identified Cx Nom (U) Klebsiella pneumoniae sp pneum [facility] Work Phone: Vital Signs Date Time Vital Sign Value Performing Clinician Facility 09-13-2023 11:48-0400 Body height 175.3 cm Rebecca Buck MD Work Phone: [facility] 09-13-2023 11:48-0400 Body mass index (BMI) [Ratio] 25.84 kg/m2 Rebecca Buck MD Work Phone: [facility] 09-13-2023 11:48-0400 Body weight 79.38 kg Rebecca Buck MD Work Phone: [facility] 08-13-2023 09:56-0400 Body height 175.3 cm Rebecca Buck MD Work Phone: [facility] 08-13-2023 09:56-0400 Body mass index (BMI) [Ratio] 25.84 kg/m2 Rebecca Buck MD Work Phone: [facility] 08-13-2023 09:56-0400 Body weight 79.38 kg Rebecca Buck MD Work Phone: [facility] 03-02-2022 18:49-0400 Body temperature 98.01 [degF] Lanette Munguia DO Work Phone: [facility] 03-02-2022 18:49-0400 Diastolic blood pressure 72 mm[Hg] Lanette Munguia DO Work Phone: [facility] 03-02-2022 18:49-0400 Heart rate 94 /min Lanette Munguia DO Work Phone: [facility] 03-02-2022 18:49-0400 Respiratory rate 18 /min Lanette Munguia DO Work Phone: [facility] 03-02-2022 18:49-0400 SaO2% (BldA) [Mass fraction] 98 % Lanette Munguia DO Work Phone: [facility] 03-02-2022 18:49-0400 Systolic blood pressure 104 mm[Hg] Lanette Munguia DO Work Phone: [facility] 03-02-2022 11:55-0400 Body height 175.3 cm Lanette Munguia DO Work Phone: [facility] 03-02-2022 11:55-0400 Body mass index (BMI) [Ratio] 25.84 kg/m2 Lanette Munguia DO Work Phone: [facility] 03-02-2022 11:55-0400 Body weight 79.38 kg Lanette Munguia DO Work Phone: [facility] 12-22-2021 02:08-0400 Diastolic blood pressure 67 mm[Hg] Sharon Olivia MD Work Phone: [facility] 12-22-2021 02:08-0400 Heart rate 77 /min Sharon Olivia MD Work Phone: [facility] 12-22-2021 02:08-0400 Respiratory rate 16 /min Sharon Olivia MD Work Phone: [facility] 12-22-2021 02:08-0400 SaO2% (BldA) [Mass fraction] 96 % [facility] 12-22-2021 02:08-0400 Systolic blood pressure 108 mm[Hg] Sharon Olivia MD Work Phone: [facility] 12-21-2021 23:52-0400 Body height 175.3 cm Sharon Olivia MD Work Phone: [facility] 12-21-2021 23:52-0400 Body mass index (BMI) [Ratio] 25.84 kg/m2 Sharon Olivia MD Work Phone: [facility] 12-21-2021 23:52-0400 Body temperature 97.9 [degF] Sharon Olivia MD Work Phone: [facility] 12-21-2021 23:52-0400 Body weight 79.38 kg Sharon Olivia MD Work Phone: [facility] 11-01-2021 08:41-0400 Diastolic blood pressure 77 mm[Hg] Dante Kim MD Work Phone: [facility] 11-01-2021 08:41-0400 Heart rate 75 /min Dante Kim MD Work Phone: [facility] 11-01-2021 08:41-0400 Respiratory rate 16 /min Dante Kim MD Work Phone: [facility] 11-01-2021 08:41-0400 SaO2% (BldA) [Mass fraction] 97 % Dante Kim MD Work Phone: [facility] 11-01-2021 08:41-0400 Systolic blood pressure 112 mm[Hg] Dante Kim MD Work Phone: [facility] 10-31-2021 19:13-0400 Body height 177.8 cm Dante Kim MD Work Phone: [facility] 10-31-2021 19:13-0400 Body mass index (BMI) [Ratio] 27.26 kg/m2 Dante Kim MD Work Phone: [facility] 10-31-2021 19:13-0400 Body temperature 98.49 [degF] Dante Kim MD Work Phone: [facility] 10-31-2021 19:13-0400 Body weight 86.18 kg Dante Kim MD Work Phone: [facility] 10-29-2021 07:38-0400 Body temperature 97.81 [degF] Lisa Miguel Angel DO Work Phone: [facility] 10-29-2021 07:38-0400 Diastolic blood pressure 79 mm[Hg] Lisa Miguel Angel DO Work Phone: [facility] 10-29-2021 07:38-0400 Heart rate 80 /min Lisa Miguel Angel DO Work Phone: [facility] 10-29-2021 07:38-0400 Respiratory rate 18 /min Lisa Miguel Angel DO Work Phone: [facility] 10-29-2021 07:38-0400 SaO2% (BldA) [Mass fraction] 96 % Lisa Miguel Angel DO Work Phone: [facility] 10-29-2021 07:38-0400 Systolic blood pressure 123 mm[Hg] Lisa Miguel Angel DO Work Phone: [facility] 10-25-2021 13:55-0400 Body height 170.2 cm Lisa Miguel Angel DO Work Phone: [facility] 10-21-2021 00:57-0400 Body mass index (BMI) [Ratio] 37.58 kg/m2 Lisa Miguel Angel DO Work Phone: [facility] 10-21-2021 00:57-0400 Body weight 108.86 kg Lisa Miguel Angel DO Work Phone: [facility] 07-13-2020 13:21-0500 BMI (Body Mass Index) 40.47 kg/m2 Monika Staley [facility] Work Phone: 07-13-2020 13:21-0500 Body Temperature 98 [degF] Monika Staley [facility] Work Phone: 07-13-2020 13:21-0500 Body weight 124.31 kg Shiela Luís [facility] Work Phone: 07-13-2020 13:21-0500 BP Diastolic 78 mm[Hg] Monika Horner Luís [facility] [...] Source: 04-13-2020 15:33-0500 0 1 Wing Ritter [facility] Work Phone: Comment on above: Pain Scale 01-20-2020 16:39-0400 Body height 175.26 cm Monika Staley MD [facility] [address] [place] Work Phone: 01-20-2020 16:39-0400 Body mass index (BMI) [Ratio] 39.28 kg/m2 Monika Staley MD TM-Vtjdlrftgs-Tyg [facility] [address] [place] Work Phone: 01-20-2020 16:39-0400 Body surface area Derived from formula 2.33 m2 Monika Staley MD KM-Zfvkjewusq-Oyv [facility] [address] [place] Work Phone: 01-20-2020 16:39-0400 Body weight 120.66 kg Monika Staley MD [facility] [address] [place] Work Phone: 01-20-2020 16:39-0400 Diastolic blood pressure 84 mm[Hg] Monika Staley MD FQ-Tlxryqazuh-Lso [facility] [address] [place] Work Phone: Comment on above: Location: [facility]; Position: Sitting 01-20-2020 16:39-0400 Heart rate 80 /min Monika Staley MD, [facility] [address] [place] Work Phone: 01-20-2020 16:39-0400 SaO2% (BldA) [Mass fraction] 100 % Monika Staley MD WA-Likvxyvdyo-Wnh [facility] [address] [place] Work Phone: Comment on above: Source: 01-20-2020 16:39-0400 Systolic blood pressure 144 mm[Hg] Monika Staley MD XP-Tmnijhvqbu-Xav [facility] [address] [place] Work Phone: Comment on above: Location: [facility]; Position: Sitting 11-06-2019 15:29-0400 BMI (Body Mass Index) 38.31 kg/m2 Shiela Luís [facility] Work Phone: 11-06-2019 15:29-0400 [...] Date Encounter Type Care Provider Facility Start: 03-05-2025 ambulatory Monika Rosasi ty:[facility] Start: 03-02-2025 ambulatory Carlos NOVAK Faci lity:[facility] Start: 02-26-2025 ambulatory Mahaveer kka flsah OLS Facility:[facility] Start: 02-23-2025 ambulatory Mahaveer Mukka lfash OLS Facility:[facility] Start: 02-19-2025 ambulatory Mahaveer Mukka flash OLS Facility:[facility] Start: 02-16-2025 End: 02-16-2025 ambulatory Mahaveer Mukkamalla OLS Facility:[facility] Start: 02-12-2025 Registered Referred Karon casillas MD -[facility] Start: 02-12-2025 End: 02-12-2025 ambulatory Mahaveer Mukkamalla OLS Facility:[facility] Start: 02-09-2025 Registered Referred Peter Katsaros - [facility] [employer] Start: 02-09-2025 ambulatory Carlos Cavazos OLS Faci lity:[facility] Start: 02-05-2025 [facility] Start: 02-05-2025 End: 02-05-2025 ambulatory Carlaaveer Nubialla OLS Facility:[facility] Start: 02-02-2025 Registered [facility] [employer] Start: 02-02-2025 End: 02-02-2025 ambulatory Mahaveer Mukkminglla OLS Facility:[facility] Start: 01-29-2025 Registered [facility] [employer] Start: 01-29-2025 End: 01-29-2025 ambulatory Karon Delacruzlla OLS Facility:[facility] Start: 01-26-2025 Registered [facility] [employer] Start: 01-26-2025 End: 01-26-2025 ambulatory Carlaaveer Nubialla OLS Facility:[facility] Start: 01-22-2025 Registered [facility] [employer] Start: 01-22-2025 End: 01-22-2025 ambulatory Karon Delacruzlla OLS Facility:[facility] Start: 01-19-2025 Registered Referred Carlos Cavazos - [facility] [employer] Start: 01-19-2025 End: 01-19-2025 ambulatory Carlos Cavazos OLS Facility:[facility] Start: 01-15-2025 Registered [facility] [employer] Start: 01-15-2025 End: 01-15-2025 ambulatory Mahaveer Mukkamalla OLS Facility:[facility] Start: 01-12-2025 Registered [facility] [employer] Start: 01-12-2025 End: 01-12-2025 ambulatory Mahaveer Mukkminglla OLS Facility:[facility] Start: 01-08-2025 Registered Referred Karon casillas MD -[facility] Start: 01-08-2025 End: 01-08-2025 [facility]ulatory [facility] Facility:[facility] Start: 01-06-2025 Registered Referred Karon casillas MD -[facility] [employer] [facility] Start: 01-06-2025 End: 01-06-2025 ambulatory [facility] Facility:[facility] Start: 01-01-2025 End: 01-01-[address] Monika Staley MD Work Phone: -[facility] Start: 01-01-2025 End: 01-01-2025 Departed Referred Karon Corrales MD -[facility] Start: 01-01-2025 Registered Referred Karon casillas MD -[facility] [employer] [facility] Start: 01-01-2025 End: 01-01-2025 ambulatory [facility] Start: 12-29-2024 Registered Referred Carlos Cavazos - [facility] Start: 12-29-2024 End: 12-29-2024 ambulatory Carlos Cavazos OLS Facility:[facility] Start: 12-26-2024 End: 12-26-[address] Monika Staley MD Work Phone: -[facility] [employer] Start: 12-26-2024 End: 12-26-2024 Departed Referred Karon Corrales MD -[facility] Start: 12-26-2024 Registered Referred Karon casillas MD -[facility] [employer] [facility] Start: 12-26-2024 End: 12-26-2024 ambulatory [facility] inga OLS Facility:[facility] Start: 12-25-2024 Registered Referred Karon casillas MD -[facility] [employer] [facility] Start: 12-24-2024 End: 12-25-2024 ambulatory [facility] O[facility] Facility:[facility] Start: 12-24-2024 Registered Referred Carlos Cavazos - [facility] Start: 12-22-2024 [facility]ulatory [facility] Start: 12-22-2024 Registered Referred Karon casillas MD -[facility] Start: 12-18-2024 Registered Referred Karon casillas MD -[facility] Start: 12-18-2024 End: 12-18-2024 ambulatory [facility] OLS Facility:[facility] Start: 12-15-2024 ambulatory [facility] OLS Facility:[facility] Start: 12-15-2024 Registered Referred Karon casillas MD -[facility] Start: 12-11-2024 Registered Referred Carlos Cavazos - [facility] [employer] Start: 12-11-2024 End: 12-11-2024 ambulatory Carlos NOVAK Facility:[facility] Start: 12-08-2024 Registered Referred Karon casillas MD -[facility] Start: 12-08-2024 End: 12-08-2024 [facility] Start: 12-04-2024 Registered Referred Karon casillas MD -[facility] Start: 12-04-2024 End: 12-04-2024 [facility]ulatory [facility] Start: 12-02-2024 ambulatory [facility] OLS Facility:[facility] Start: 12-02-2024 Registered Referred Karon casillas MD -[facility] Start: 12-01-2024 ambulatory Carlos NOVAK Faci lity:[facility] Start: 12-01-2024 Registered Referred Carlos Cavazos - [facility] [employer] Start: 11-28-2024 Registered Referred Carlos Cavazos - [facility] [employer] [facility] Start: 11-28-2024 End: 11-28-2024 ambulatory Peter Katsaros OLS Facility:[facility] Start: 11-27-2024 Registered Referred Carlavilmanoe Godoy sonja VALLADARES -[facility] Start: 11-27-2024 End: 11-27-2024 [facility]ulatory [facility] Start: 11-24-2024 ambulatory [facility] OLS Facility:[facility] Start: 11-24-2024 Registered Referred Karon Godoy sonja VALLADARES -[facility] Start: 11-20-2024 Registered Referred Karon Godoy sonja VALLADARES -[facility] Start: 11-20-2024 End: 11-20-2024 ambulatory [facility] OLS Facility:[facility] Start: 11-17-2024 ambulatory [facility] OLS Facility:[facility] Start: 11-17-2024 Registered Referred Karon Godoy sonja VALLADARES -[facility] Start: 11-13-2024 ambulatory Monika Carlos ty:[facility] Start: 11-13-2024 Registered Referred Carlavilmanoe Godoy sonja VALLADARES -[facility] Start: 11-10-2024 ambulatory [facility] OLS Facility:[facility] Start: 11-10-2024 Registered Referred Karon Godoy sonja VALLADARES -[facility] [employer] [facility] Start: 11-06-2024 Registered Referred Karon Walt sonja VALLADARES -[facility] [employer] Start: 11-06-2024 End: 11-06-2024 [facility]ulatory [facility] Start: 11-03-2024 End: 11-03-[address] Monika Staley MD Work Phone: -[facility] [employer] Start: 11-03-2024 End: 11-03-2024 Departed Referred Carlos Cavazos -[facility] Start: 11-03-2024 Registered Referred Carlos Cavazos - [facility] [employer] Start: 11-03-2024 End: 11-03-2024 ambulatory Carlos NOVAK Facility:[facility] Start: 10-30-2024 End: 10-30-[address] Monika Staley MD Work Phone: -[facility] [employer] Start: 10-30-2024 End: 10-30-2024 Departed Referred Karon Corrales MD -[facility] [employer] Start: 10-30-2024 Registered Referred Karon casillas MD -[facility] Start: 10-30-2024 End: 10-30-2024 ambulatory Monika Staley Facility:[facility] Start: 10-27-2024 Registered Referred Karon casillas MD -[facility] [employer] Start: 10-27-2024 End: 10-27-2024 ambulatory Karon NOVAK Facility:[facility] Start: 10-23-2024 Registered Referred Karon casillas MD -[facility] [employer] Start: 10-23-2024 End: 10-23-2024 ambulatory Monika Staley Facility:[facility] Start: 10-20-2024 End: 10-20-[address] Monika Staley MD Work Phone: -[facility] Start: 10-20-2024 End: 10-20-2024 Departed Referred Karon Corrales MD -[facility] Start: 10-20-2024 Registered Referred Karon casillas MD -[facility] Start: 10-20-2024 End: 10-20-2024 ambulatory Karon NOVAK Facility:[facility] Start: 10-16-2024 ambulatory Monika Staley Facili ty:[facility] Start: 10-16-2024 Registered Referred Karon casillas MD -[facility] [employer] Start: 10-13-2024 ambulatory aCrlos NOVAK Faci lity:[facility] Start: 10-13-2024 Registered Referred Carlos Cavazos - [facility] Start: 10-09-2024 ambulatory Monika Horner Luís Facili ty:[facility] Start: 10-09-2024 Registered Referred Karon casillas MD -[facility] [employer] Start: 10-06-2024 ambulatory Carlos Maribelkameron SCARLET Faci lity:[facility] Start: 10-06-2024 Registered Referred Carlos Maribelkameron - [facility] [employer] Start: 10-02-2024 ambulatory Shiela Luís Facili ty:[facility] Start: 10-02-2024 Registered Referred Karon casillas MD -[facility] [employer] [facility] Start: 09-30-2024 End: 09-30-[address] Monika Staley MD Work Phone: [facility] Work Phone: Start: 09-30-2024 End: 09-30-2024 Departed Referred Karon Corrales MD -[facility] Start: 09-30-2024 Registered Referred Karon casillas MD -[facility] [employer] Start: 09-30-2024 End: 09-30-2024 ambulatory Karon NOVAK Facility:[facility] Start: 09-25-2024 ambulatory Monika Horner Luís Facili ty:[facility] Start: 09-25-2024 Registered Referred Karon casillas MD -[facility] Start: 09-22-2024 End: 09-22-[address] Monika Staley MD Work Phone: -[facility] [employer] Start: 09-22-2024 End: 09-22-2024 Departed Ref[facility] Start: 09-22-2024 Registered Referred Karon casillas MD -[facility] [employer] Start: 09-22-2024 End: 09-22-2024 ambulatory Karon NOVAK Facility:[facility] Start: 09-18-2024 End: 09-18-[address] Monika Staley MD Work Phone: -[facility] [employer] Start: 09-18-2024 End: 09-18-2024 Departed Referred Karon Corrales MD -[facility] Start: 09-18-2024 Registered Referred Karon casillas MD -[facility] [employer] [facility] Start: 09-18-2024 End: 09-18-2024 ambulatory Karon Corrales OLS Facility:[facility] Start: 09-15-2024 End: 09-15-[address] Monika Staley MD Work Phone: [facility] Work Phone: Start: 09-15-2024 End: 09-15-2024 Departed Referred Carlos [facility] [employer] Start: 09-15-2024 Registered Referred Carlos Reeder [facility] [employer] Start: 09-15-2024 End: 09-15-2024 ambulatory Carlos Cavazos OLS Facility:[facility] Start: 09-11-2024 ambulatory [facility] OLS Facility:[facility] Start: 09-11-2024 Registered Referred Karon casillas MD -[facility] [employer] Start: 09-08-2024 End: 09-08-[address] Monika Staley MD Work Phone: [facility] Work Phone: Start: 09-08-2024 End: 09-08-2024 Departed Referred Karon Corrales MD -[facility] Start: 09-08-2024 Registered [facility] [employer] Start: 09-08-2024 End: 09-08-2024 ambulatory Karon Corrales OLS Facility:[facility] Start: 09-04-2024 End: 09-04-2024 Departed Referred [facility] Start: 09-04-2024 Registered Referred Peter Katsaros - [facility] [employer] Start: 09-04-2024 End: 09-04-2024 ambulatory Carlos NOVAK Facility:[facility] Start: 09-01-2024 End: 09-01-[address] Monika Staley MD Work Phone: [facility] Work Phone: Start: 09-01-2024 End: 09-01-2024 Departed Referred Carlos Abdelrahmanros -[facility] [employer] Start: 09-01-2024 Registered Referred Carlos Quickros - [facility] Start: 09-01-2024 End: 09-01-2024 ambulatory Carlos NOVAK Facility:[facility] Start: 08-28-2024 End: 08-28-[address] Monika Staley MD Work Phone: [facility] Work Phone: Start: 08-28-2024 End: 08-28-2024 Departed Referred Carlos Abdelrahmanros -[facility] Start: 08-28-2024 Registered Referred Carlos Quickros - [facility] [employer] [facility] Start: 08-28-2024 End: 08-28-2024 ambulatory Carlos NOVAK Facility:[facility] Start: 08-25-2024 End: 08-25-[address] Monika Staley MD Work Phone: [facility] Work Phone: Start: 08-25-2024 End: 08-25-2024 Departed Referred Karon Corrales MD -[facility] [employer] Start: 08-25-2024 Registered Referred Karon casillas MD -[facility] [employer] Start: 08-25-2024 End: 08-25-2024 ambulatory Karon NOVAK Facility:[facility] Start: 08-21-2024 End: 08-21-[address] Monika Staley MD Work Phone: [facility] Work Phone: Start: 08-21-2024 End: 08-21-2024 Departed [facility] Start: 08-21-2024 Registered [facility] Start: 08-21-2024 End: 08-21-2024 ambulatory Karon Faremra OLS Facility:[facility] Start: 08-18-2024 End: 08-18-[address] Monika Staley MD Work Phone: [facility] Work Phone: Start: 08-18-2024 End: 08-18-2024 Dep[facility]ed [facility] Start: 08-18-2024 Registered Referred [facility] [employer] [facility] Start: 08-18-2024 End: 08-18-2024 ambulatory Karon Corrales OLS Facility:[facility] Start: 08-14-2024 End: 08-14-[address] Monika Staley MD Work Phone: [facility] Work Phone: Start: 08-14-2024 End: 08-14-2024 Departed Referred [facility] [employer] Start: 08-14-2024 Registered Referred [facility] [employer] Start: 08-14-2024 End: 08-14-2024 ambulatory Karon Corrales OLS Facility:[facility] Start: 08-11-2024 End: 08-11-2024 Departed Referred [facility] [employer] Start: 08-11-2024 Registered Ref[facility] Start: 08-11-2024 End: 08-11-2024 ambulatory Karon Corrales OLS Facility:[facility] Start: 08-07-2024 End: 08-07-2024 Departed Referred Carlos Cavazos -[facility] Start: 08-07-2024 Registered Referred Carlos Cavazos - [facility] [employer] Start: 08-07-2024 End: 08-07-2024 ambulatory Carlos NOVAK Facility:[facility] Start: 08-04-2024 End: 08-04-[address] Monika Staley MD Work Phone: [facility] Work Phone: Start: 08-04-2024 End: 08-04-2024 Departed Referred Carlos Abdelrahmanviri -[facility] Start: 08-04-2024 Registered Referred Carlos Abdelrahmanviri - [facility] [employer] [facility] Start: 08-04-2024 End: 08-04-2024 ambulatory Carlos NOVAK Facility:[facility] Start: 07-31-2024 End: 07-31-[address] Monika Staley MD Work Phone: [facility] Work Phone: Start: 07-31-2024 End: 07-31-2024 Departed Referred [facility] [employer] Start: 07-31-2024 Registered Referred Karon casillas MD -[facility] [employer] Start: 07-31-2024 End: 07-31-2024 ambulatory Karon NOVAK Facility:[facility] Start: 07-28-2024 End: 07-28-[address] Monika Staley MD Work Phone: [facility] Work Phone: Start: 07-28-2024 End: 07-28-2024 Departed [facility] Start: 07-28-2024 Registered Referred [facility] [employer] Start: 07-28-2024 End: 07-28-2024 ambulatory Karon NOVAK Facility:[facility] Start: 07-25-2024 End: 07-25-[address] Monika Staley MD Work Phone: [facility] Work Phone: Start: 07-25-2024 End: 07-25-2024 Departed Referred Carlos Cavazos -[facility] [employer] Start: 07-25-2024 Registered Referred Carlos Reeder [facility] [employer] Start: 07-24-2024 End: 07-25-[address] Monika Staley MD Work Phone: [facility] Work Phone: Start: 07-24-2024 End: 07-24-2024 Departed Referred [facility] [employer] Start: 07-24-2024 Registered Referred Karon casillas MD -[facility] [employer] Start: 07-24-2024 End: 07-24-2024 ambulatory Karon NOVAK Facility:[facility] Start: 07-21-2024 End: 07-21-[address] Monika Staley MD Work Phone: [facility] Work Phone: Start: 07-21-2024 End: 07-21-2024 Departed Referred [facility] [employer] Start: 07-21-2024 Registered Referred Karon casillas MD -[facility] [employer] [facility] Start: 07-21-2024 End: 07-21-2024 ambulatory Karon NOVAK Facility:[facility] Start: 07-17-2024 End: 07-17-[address] Monika Staley MD Work Phone: [facility] Work Phone: Start: 07-17-2024 End: 07-17-2024 Departed Referred [facility] [employer] Start: 07-17-2024 Registered Referred Karon casillas MD -[facility] [employer] [facility] Start: 07-17-2024 End: 07-17-2024 ambulatory Karon NOVAK Facility:[facility] Start: 07-14-2024 End: 07-14-[address] Monika Staley MD Work Phone: [facility] Work Phone: Start: 07-14-2024 End: 07-14-2024 Departed Referred Carlos Maribelsaros -[facility] [employer] [facility] Start: 07-14-2024 Registered Referred Carlos Maribelsaros - [facility] [employer] Start: 07-14-2024 End: 07-14-2024 ambulatory Carlos Maribelkameron NOVAK Facility:[facility] Start: 07-11-2024 End: 07-11-[address] Monika Staley MD Work Phone: [facility] Work Phone: Start: 07-11-2024 End: 07-11-2024 Departed Referred Carlos Lópezsaros -[facility] [employer] Start: 07-11-2024 Registered Referred Carlos Lópezsaros - [facility] [employer] Start: 07-11-2024 End: 07-11-2024 ambulatory Carlos Maribelkameron NOVAK Facility:[facility] Start: 07-07-2024 End: 07-07-[address] Monika Staley MD Work Phone: [facility] [facility] Work Phone: Start: 07-07-2024 End: 07-07-2024 Departed Referred Karon Corrales MD -[facility] [employer] Start: 07-07-2024 Registered Referred [facility] -[employer] Start: 07-07-2024 End: 07-07-2024 ambulatory Karon NOVAK Facility:[facility] Start: 07-03-2024 End: 07-03-[address] Monika Staley MD Work Phone: [facility] Work Phone: Start: 07-03-2024 End: 07-03-2024 Departed Referred Kvng Crisostomo MD -[facility] [employer] Start: 07-03-2024 Registered Referred Kvng Crisostomo MD -[facility] [employer] Start: 07-03-2024 End: 07-03-2024 ambulatory Kvng NOVAK Facility:[facility] Start: 06-30-2024 End: 06-30-[address] Monika Staley MD Work Phone: [facility] Work Phone: Start: 06-30-2024 End: 06-30-2024 Departed Referred Kvng Crisostomo MD -[facility] [employer] Start: 06-30-2024 Registered Referred Kvng Crisostomo MD -[facility] [employer] Start: 06-30-2024 End: 06-30-2024 ambulatory Kvng NOVAK Facility:[facility] Start: 06-26-2024 ambulatory Kvng NOVAK Fac ility:[facility] Start: 06-26-2024 Registered Referred Kvng Crisostomo MD -[facility] [employer] Start: 06-23-2024 End: 06-23-[address] Monika Staley MD Work Phone: [facility] Work Phone: Start: 06-23-2024 End: 06-23-2024 Departed Referred Carlos Cavazos -[employer] [employer] Start: 06-23-2024 Registered Referred Carlos Cavazos - [employer] Start: 06-23-2024 End: 06-23-2024 ambulatory Carlos NOVAK Facility:[facility] Start: 06-19-2024 End: 06-19-[address] Monika Staley MD Work Phone: [facility] Work Phone: Start: 06-19-2024 End: 06-19-2024 Departed Referred Kvng Crisostomo MD -[facility] [employer] Start: 06-19-2024 Registered Referred Kvng Crisostomo MD -[facility] [employer] Start: 06-19-2024 End: 06-19-2024 ambulatory [place] Andressa NOVAK Facility:[facility] Start: 06-16-2024 End: 06-16-[address] Monika Staley MD Work Phone: [facility] Work Phone: Start: 06-16-2024 End: 06-16-2024 Departed Referred Kvng Crisostomo MD -[facility] [employer] Start: 06-16-2024 Registered Referred Kvng Crisostomo MD -[facility] [employer] Start: 06-16-2024 End: 06-16-2024 ambulatory Kvng NOVAK Facility:[facility] Start: 06-12-2024 End: 06-12-[address] Monika Staley MD Work Phone: [facility] Work Phone: Start: 06-12-2024 End: 06-12-2024 Departed Referred Kvng Crisostomo MD -[facility] [employer] Start: 06-12-2024 Registered Referred Kvng Crisostomo MD -[facility] [employer] Start: 06-12-2024 End: 06-12-2024 ambulatory Kvng NOVAK Facility:[facility] Start: 06-09-2024 End: 06-09-[address] Monika Staley MD Work Phone: [facility] Work Phone: Start: 06-09-2024 End: 06-09-2024 Departed Referred Carlos Cavazos -[facility] [employer] Start: 06-09-2024 Registered Referred [facility] [employer] Start: 06-09-2024 End: 06-09-2024 ambulatory Carlos NOVAK Facility:[facility] Start: 06-05-2024 End: 06-05-[address] Monika Staley MD Work Phone: [facility] Work Phone: Start: 06-05-2024 End: 06-05-2024 Departed Referred Kvng Crisostomo MD -[facility] [employer] Start: 06-05-2024 End: 06-05-2024 ambulatory Kvng NOVAK Facility:[facility] Start: 06-02-2024 End: 06-02-[address] Monika Staley MD Work Phone: [facility] Work Phone: Start: 06-02-2024 End: 06-02-2024 Departed Referred Kvng Crisostomo MD -[facility] [employer] Start: 06-02-2024 Registered Referred Kvng Crisostomo MD -[facility] [employer] Start: 06-02-2024 End: 06-02-2024 ambulatory Kvng NOVAK Facility:[facility] Start: 05-29-2024 End: 05-29-[address] Monika Staley MD Work Phone: [facility] Work Phone: Start: 05-29-2024 End: 05-29-2024 Departed Referred Kvng Crisostomo MD -[facility] [employer] Start: 05-29-2024 Registered Referred Kvng Crisostomo MD -[facility] [employer] Start: 05-29-2024 End: 05-29-2024 ambulatory Kvng NOVAK Facility:[facility] Start: 05-26-2024 End: 05-26-[address] Monika Staley MD Work Phone: [facility] Work Phone: Start: 05-26-2024 End: 05-26-2024 Departed Referred Carlos [facility] [employer] Start: 05-26-2024 Registered Referred [facility] [employer] [facility] Start: 05-26-2024 End: 05-26-2024 ambulatory Monika Staley Facility:[facility] Start: 05-22-2024 ambulatory Kvng NOVAK Fac ility:[facility] Start: 05-22-2024 Registered Referred Kvng Crisostomo MD -[facility] [employer] Start: 05-20-2024 End: 05-20-2024 Departed Referred Kvng Crisostomo MD -[facility] [employer] Start: 05-19-2024 End: 05-20-2024 ambulatory Kvng NOVAK Facility:[facility] Start: 05-19-2024 Registered Referred Kvng Crisostomo MD -[facility] [employer] Start: 05-15-2024 End: 05-15-2024 Departed Referred Kvng Crisostomo MD -[employer] [employer] Start: 05-15-2024 End: 05-15-2024 ambulatory Kvng NOVAK Facility:[facility] Start: 05-12-2024 End: 05-12-2024 Departed Referred Carlos Cavazos -[employer] [employer] Start: 05-12-2024 End: 05-12-2024 ambulatory Carlos NOVAK Facility:[facility] Start: 05-09-2024 End: 05-09-2024 Departed Referred Kvng Crisostomo MD -[facility] [employer] Start: 05-09-2024 End: 05-09-2024 ambulatory Kvng NOVAK Facility:[facility] Start: 05-08-2024 End: 05-08-2024 Departed Referred [facility] Start: 05-08-2024 End: 05-08-2024 ambulatory Kvng NOVAK Facility:[facility] Start: 05-05-2024 End: 05-05-2024 Departed Referred Kvng Crisostomo MD -[facility] [employer] Start: 05-05-2024 End: 05-05-2024 ambulatory Kvng NOVAK Facility:[facility] Start: 05-01-2024 End: 05-01-2024 Departed Referred Kvng Crisostomo MD -[facility] [employer] Start: 05-01-2024 End: 05-01-2024 ambulatory Kvng NOVAK Facility:[facility] Start: 04-28-2024 End: 04-28-2024 Departed Referred Carlos Cavazos -[facility] [employer] Start: 04-28-2024 End: 04-28-2024 ambulatory Carlos NOVAK Facility:[facility] Start: 04-24-2024 End: 04-24-2024 Departed Referred Kvng Crisostomo MD -[employer] Start: 04-24-2024 End: 04-24-2024 ambulatory Kvng NOVAK Facility:[facility] Start: 04-21-2024 End: 04-21-2024 Departed Referred Carlos Cavazos -[facility] [employer] Start: 04-21-2024 End: 04-21-2024 ambulatory Carlos NOVAK Facility:[facility] Start: 04-17-2024 ambulatory Kvng NOVAK Fac ility:[facility] Start: 04-17-2024 Registered Referred Kvng Crisostomo MD -[facility] [employer] Start: 04-14-2024 ambulatory Kvng Crisostomo O[facility] Fac ility:[facility] Start: 04-14-2024 Registered Referred Kvng Crisostomo MD -[employer] Start: 04-10-2024 End: 04-10-2024 Departed Referred Kvng Crisostomo MD -[facility] [employer] Start: 04-10-2024 End: 04-10-2024 ambulatory Kvng NOVAK Facility:[facility] Start: 04-07-2024 End: 04-07-2024 Departed Referred Carlos Cavazos -[facility] [employer] Start: 04-07-2024 End: 04-07-2024 ambulatory Carlos NOVAK Facility:[facility] Start: 04-04-2024 ambulatory Kvng Crisostomo OLS Fac ility:[facility] Start: 04-04-2024 Registered Referred Kvng Crisostomo MD -[facility] [employer] Start: 03-31-2024 End: 03-31-2024 Departed Referred Carlos Cavazos -[employer] [employer] Start: 03-31-2024 End: 03-31-2024 ambulatory Carlos NOVAK Facility:[facility] Start: 03-27-2024 End: 03-27-2024 Departed Referred [facility] Start: 03-27-2024 End: 03-27-2024 ambulatory [facility] Facility:[facility] Start: 03-24-2024 End: 03-24-2024 Departed Referred Kvng Crisostomo MD -[facility] [employer] Start: 03-24-2024 End: 03-24-2024 ambulatory Kvng NOVAK Facility:[facility] Start: 03-20-2024 End: 03-20-2024 Departed Referred [facility] [employer] Start: 03-20-2024 End: 03-20-2024 ambulatory [facility] Facility:[facility] Start: 03-19-2024 End: 03-19-2024 Departed Referred Kvng Crisostomo MD -[facility] [employer] Start: 03-19-2024 End: 03-19-2024 ambulatory Kvng NOVAK Facility:[facility] Start: 03-18-2024 End: 03-18-2024 Departed Referred [facility] Start: 03-18-2024 End: 03-18-2024 ambulatory [facility] Facility:[facility] Start: 03-17-2024 End: 03-17-2024 Departed Referred [facility] Start: 03-17-2024 End: 03-17-2024 ambulatory [facility] Facility:[facility] Start: 03-14-2024 End: 03-14-2024 Departed Referred Carlos Cavzaos -[employer] [employer] Start: 03-14-2024 End: 03-14-2024 ambulatory Carlos NOVAK Facility:[facility] Start: 03-13-2024 End: 03-13-2024 Departed Referred [facility] Start: 03-13-2024 End: 03-13-2024 ambulatory [facility] Facility:[facility] Start: 03-10-2024 End: 03-10-2024 [facility] Facility:[facility] Start: 09-13-2023 End: 09-13-2023 ambulatory [facility] Start: 09-13-2023 End: 09-13-2023 Office outpatient visit 25 minutes Rebecca Buck MD Work Phone: [facility] Comment on above: Left flank pain (Christina magui Dx); BPH with urinary obstruction; History of kidney stones Start: 09-06-2023 End: 09-07-2023 ambulatory [facility] Start: 09-06-2023 End: 09-06-2023 Subsequent hospital visit by physician Rebecca Buck MD Work Phone: [facility] Imaging Comment on above: Left flank pain; Calculus of ureter Start: 08-31-2023 ambulatory Eloise Stern RN [facility] Start: 08-31-2023 [facility] Start: 08-21-2023 Telephone encounter Rebecca Buck MD Work Phone: [facility] Comment on above: CT appt Boaz advice Start: 08-21-2023 [facility] Start: 08-13-2023 End: 08-13-2023 ambulatory [facility] Start: 08-13-2023 End: 08-13-2023 Office outpatient new 45 minutes Rebecca Buck MD Work Phone: [facility] Comment on above: Left flank pain (Christina magui Dx); Calculus of ureter; Disease of prostate; BPH with urinary obstruction Start: 08-03-2023 End: 08-03-[address] [facility] Work Phone: Start: 08-03-2023 End: 08-03-2023 Departed Referred [facility] Start: 07-20-2023 End: 07-20-[address] [facility] Work Phone: Start: 07-20-2023 End: 07-20-2023 [facility] Start: 07-20-[facility]23 [facility] Start: 07-18-2023 End: 07-18-[address] [facility] Work Phone: Start: 07-18-2023 End: 07-18-2023 [facility] Start: 07-18-2023 [facility] Start: 07-16-2023 End: 07-16-[address] [facility] Work Phone: Start: 07-16-2023 End: 07-16-2023 [facility] Start: 07-16-2023 [facility] Start: 07-13-2023 End: 07-13-[address] [facility] Work Phone: Start: 07-13-2023 End: 07-13-2023 [facility] Start: 07-13-2023 [facility] Start: 07-12-2023 End: 07-12-[address] [facility] Work Phone: Start: 07-12-2023 End: 07-12-2023 [facility] Start: 07-12-2023 [facility] Start: 07-05-2023 End: 07-05-[address] [facility] Work Phone: Start: 07-05-2023 End: 07-05-2023 [facility] Start: 07-05-2023 [facility] Start: 07-02-2023 [facility] Start: 06-28-2023 End: 06-28-[address] [facility] Work Phone: Start: 06-28-2023 End: 06-28-2023 [facility] Start: 06-28-2023 [facility] Start: 06-25-2023 Telephone encounter Rebecca Buck MD Work Phone: [facility] Start: 06-25-2023 End: 06-25-[address] [facility] Work Phone: Start: 06-25-2023 End: 06-25-2023 [facility] Start: 06-25-2023 [facility] Start: 06-21-2023 End: 06-21-[address] [facility] Work Phone: Start: 06-21-2023 End: 06-21-2023 [facility] Start: 06-21-2023 [facility] Start: 06-13-2023 End: 06-13-[address] [facility] Work Phone: Start: 06-13-2023 End: 06-13-2023 [facility] Start: 06-06-2023 End: 06-06-[address] [facility] Work Phone: Start: 06-06-2023 End: 06-06-2023 [facility] Start: 06-06-2023 [facility] Start: 05-23-2023 End: 05-23-[address] [facility] Work Phone: Start: 05-23-2023 End: 05-23-2023 [facility] Start: 05-09-2023 End: 05-09-2023 Departed Referred [facility] [employer] Start: 05-09-2023 Registered Referred [facility] [employer] Start: 04-23-2023 End: 04-23-2023 [facility] Start: 04-09-2023 End: 04-09-[address] [facility] Work Phone: Start: 04-09-2023 End: 04-09-2023 [facility] Start: 04-09-2023 [facility] Start: 04-02-2023 End: 04-02-[address] [facility] Work Phone: Start: 04-02-2023 End: 04-02-2023 [facility] Start: 04-02-2023 [facility] Start: 03-26-2023 End: 03-26-[address] [facility] Work Phone: Start: 03-26-2023 End: 03-26-2023 [facility] Start: 03-26-2023 [facility] Start: 03-22-2023 End: 03-22-[address] [facility] Work Phone: Start: 03-22-2023 End: 03-22-2023 [facility] Start: 03-22-2023 [facility] Start: 03-08-2023 End: 03-08-[address] [facility] Work Phone: Start: 03-08-2023 End: 03-08-2023 Departed Referred [facility] [employer] [facility] Start: 02-22-2023 End: 02-22-[address] [facility] Work Phone: Start: 02-22-2023 End: 02-22-2023 Departed Referred [facility] [employer] Start: 02-22-2023 Registered Referred [facility] [employer] Start: 02-15-2023 End: 02-15-[address] [facility] Work Phone: Start: 02-15-2023 End: 02-15-2023 [facility] Start: 02-15-2023 Registered Referred [facility] [employer] Start: 02-08-2023 End: 02-08-[address] [facility] Work Phone: Start: 02-08-2023 End: 02-08-2023 Departed Referred [facility] [employer] Start: 01-31-2023 End: 01-31-[address] [facility] Work Phone: Start: 01-31-2023 End: 01-31-2023 Departed Referred [facility] [employer] [facility] Start: 01-31-2023 Registered Referred [facility] [employer] Start: 01-29-2023 End: 01-29-2023 Departed Referred [facility] [employer] Start: 01-29-[address] [facility] [employer] [facility] Start: 01-26-2023 End: 01-26-2023 Departed Referred [facility] [employer] Start: 01-26-2023 Registered Referred [facility] [employer] Start: 01-24-2023 End: 01-24-2023 Departed Referred [facility] [employer] Start: 01-24-2023 [facility] Start: 01-22-2023 End: 01-22-[address] [facility] Work Phone: Start: 01-22-2023 End: 01-22-2023 [facility] Start: 01-22-2023 [facility] Start: 01-10-2023 End: 01-10-[address] [facility] Work Phone: Start: 01-10-2023 End: 01-10-2023 [facility] Start: 01-10-2023 [facility] Start: 12-27-2022 End: 12-27-[address] [facility] Work Phone: Start: 12-27-2022 End: 12-27-2022 [facility] Start: 12-27-2022 [facility] Start: 12-21-2022 End: 12-21-[address] [facility] Work Phone: Start: 12-21-2022 End: 12-21-2022 [facility] Start: 12-21-2022 [facility] Start: 12-14-2022 End: 12-14-[address] [facility] Work Phone: Start: 12-14-2022 End: 12-14-2022 [facility] Start: 12-14-2022 [facility] Start: 12-07-2022 End: 12-07-[address] [facility] Work Phone: Start: 12-07-2022 End: 12-07-2022 [facility] Start: 12-07-2022 [facility] Start: 11-24-2022 End: 11-24-[address] [facility] Work Phone: Start: 11-24-2022 End: 11-24-2022 [facility] Start: 11-24-2022 [facility] Start: 11-23-2022 End: 11-23-[address] [facility] Work Phone: Start: 11-23-2022 End: 11-23-2022 [facility] Start: 11-23-2022 [facility] Start: 11-22-2022 End: 11-22-[address] [facility] Work Phone: Start: 11-22-2022 End: 11-22-2022 [facility] Start: 11-22-2022 [facility] Start: 11-09-2022 End: 11-09-[address] [facility] Work Phone: Start: 11-09-2022 End: 11-09-2022 [facility] Start: 11-09-[address] [facility] Start: 10-26-2022 End: 10-26-2022 Departed [facility] Start: 10-26-[address] [facility] Start: 10-12-2022 End: 10-12-[address] [facility] Work Phone: Start: 10-12-2022 End: 10-12-2022 [facility] Start: 10-12-2022 Registered Referred [facility] [employer] Start: 10-05-2022 End: 10-05-2022 Departed Referred [facility] Start: 10-05-2022 Registered Referred [facility] [employer] [facility] Start: 09-28-2022 End: 09-28-[address] [facility] Work Phone: Start: 09-28-2022 End: 09-28-2022 [facility] Start: 09-14-2022 End: 09-14-2022 [facility] Start: 08-31-2022 End: 08-31-2022 [facility] Start: 08-31-2022 Registered Referred [facility] [employer] [facility] Start: 08-23-2022 End: 08-23-[address] [facility] Work Phone: Start: 08-23-2022 End: 08-23-2022 [facility] Start: 08-23-2022 [facility] Start: 08-17-2022 End: 08-17-[address] [facility] Work Phone: Start: 08-17-2022 End: 08-17-2022 [facility] Start: 08-17-2022 Registered Referred [facility] [employer] [facility] Start: 08-14-2022 End: 08-14-[address] [facility] Work Phone: Start: 08-14-2022 End: 08-14-2022 [facility] Start: 08-14-2022 [facility] Start: 07-31-2022 End: 07-31-[address] [facility] Work Phone: Start: 07-31-2022 End: 07-31-2022 Departed Referred [facility] [employer] [facility] Start: 07-31-2022 Registered Referred [facility] Start: 07-24-2022 End: 07-24-[address] [facility] [facility] Work Phone: Start: 07-24-2022 End: 07-24-2022 Departed Referred [facility] [employer] Start: 07-24-2022 Registered Referred [facility] [employer] Start: 07-20-2022 End: 07-20-2022 [facility] Start: 07-20-2022 Registered Referred [facility] [employer] [facility] Start: 07-17-2022 End: 07-17-2022 [facility] Start: 07-17-2022 Registered Referred [facility] [facility] Start: 07-11-2022 Registered Referred [facility] [employer] Start: 07-10-2022 End: 07-10-[address] [facility] Work Phone: Start: 07-10-2022 End: 07-10-2022 [facility] Start: 07-10-2022 Registered Referred [facility] [employer] Start: 07-03-2022 End: 07-03-[address] [facility] Work Phone: Start: 07-03-2022 End: 07-03-2022 [facility] Start: 07-03-2022 Registered Referred [facility] [employer] [facility] Start: 06-27-2022 End: 06-27-[address] [facility] Work Phone: Start: 06-27-2022 End: 06-27-2022 [facility] Start: 06-27-2022 [facility] Start: 06-13-2022 End: 06-13-[address] [facility] Work Phone: Start: 06-13-2022 End: 06-13-2022 [facility] Start: 06-13-2022 [facility] Start: 06-06-2022 End: 06-06-[address] [facility] Work Phone: Start: 06-06-2022 End: 06-06-2022 [facility] Start: 06-06-2022 [facility] Start: 05-30-2022 End: 05-30-[address] [facility] Work Phone: Start: 05-30-2022 End: 05-30-2022 [facility] Start: 05-30-2022 [facility] Start: 05-16-2022 End: 05-16-[address] [facility] Work Phone: Start: 05-16-2022 End: 05-16-2022 [facility] Start: 05-16-2022 [facility] Start: 05-02-2022 End: 05-02-[address] [facility] Work Phone: Start: 05-02-2022 End: 05-02-2022 [facility] Start: 05-02-2022 [facility] Start: 04-27-2022 End: 04-27-[address] [facility] Work Phone: Start: 04-27-2022 End: 04-27-2022 Departed Referred [facility] Start: 04-27-2022 Registered Referred [facility] [employer] [facility] Start: 04-26-2022 End: 04-26-[address] [facility] Work Phone: Start: 04-26-2022 End: 04-26-2022 [facility] Start: 04-11-2022 End: 04-11-[address] [facility] Work Phone: Start: 04-11-2022 End: 04-11-2022 Departed Referred [facility] [employer] [facility] Start: 03-28-2022 End: 03-28-2022 [facility] Start: 03-28-2022 Registered Referred [facility] [employer] [facility] Start: 03-23-2022 End: 03-23-2022 [facility] Start: 03-23-2022 Registered Referred [facility] [employer] [facility] Start: 03-16-2022 End: 03-16-[address] [facility] Work Phone: Start: 03-16-2022 End: 03-16-2022 [facility] Start: 03-16-2022 [facility] Start: 03-09-2022 End: 03-09-[address] [facility] Work Phone: Start: 03-09-2022 End: 03-09-2022 [facility] Start: 03-09-2022 Registered Referred [facility] [employer] [facility] Start: 03-06-2022 End: 03-06-[address] [facility] Work Phone: Start: 03-06-2022 End: 03-06-2022 [facility] Start: 03-06-2022 [facility] Start: 03-02-2022 End: 03-03-2022 Emergency department patient visit UNKNOWN PROVIDER [facility] Start: 03-02-2022 End: 03-02-2022 Emergency department patient visit Lanette Munguia Work Phone: [facility] Emergency Dept Comment on above: Fall, initial encoun ter (Primary Dx); Anticoagulated Start: 02-20-2022 End: 02-20-2022 Departed Referred [facility] Start: 02-20-2022 Registered Referred [facility] Start: 02-13-2022 End: 02-13-[address] [facility] Work Phone: Start: 02-13-2022 End: 02-13-2022 [facility]ed [facility] Start: 02-13-2022 [facility]istered [facility] Start: 02-06-2022 End: 02-06-[address] [facility] Work Phone: Start: 02-06-2022 End: 02-06-2022 [facility]ed [facility] Start: 02-06-2022 [facility]istered [facility] Start: 01-30-2022 End: 01-30-2022 [facility] Start: 01-30-2022 [facility]istered [facility] Start: 01-26-2022 End: 01-26-[address] [facility] Work Phone: Start: 01-26-2022 End: 01-26-2022 Dep[facility]ed [facility] Start: 01-26-2022 Registered [facility] Start: 01-19-2022 End: 01-19-[address] [facility] Work Phone: Start: 01-19-2022 End: 01-19-2022 [facility]ed [facility] Start: 01-19-2022 Registered [facility] Start: 01-17-2022 ambulatory [facility] Start: 01-10-2022 [facility] Start: 01-10-2022 End: 01-10-[address] [facility] Work Phone: Start: 01-10-2022 End: 01-10-2022 Departed [facility] Start: 01-10-2022 Registered [facility] Start: 01-06-2022 AUDIT Monika Elias rt Work Phone: [facility] Work Phone: Start: 01-05-2022 End: 01-05-2022 Departed [facility] Start: 01-05-2022 [facility] Start: 12-30-2021 End: 12-30-2021 [facility] Start: 12-30-2021 Registered [facility] Start: 12-28-2021 End: 12-28-[address] [facility] Work Phone: Start: 12-28-2021 End: 12-28-2021 Departed [facility] Start: 12-28-2021 Registered [facility] Start: 12-26-2021 End: 12-26-[address] [facility] Work Phone: Start: 12-26-2021 End: 12-26-2021 Departed [facility] Start: 12-26-2021 [facility] Start: 12-22-2021 End: 12-22-[address] [facility] Work Phone: Start: 12-22-2021 End: 12-22-2021 Departed Referred [facility] Start: 12-22-2021 Registered [facility] Start: 12-22-2021 End: 12-22-2021 [facility] Start: 12-21-2021 End: 12-22-2021 Emergency department patient visit Sharon Olivia MD Work Phone: [facility] Emergency Dept Comment on above: Heel ulceration, lef t, with unspecified severity (HCC) (Primary Dx) Start: 12-19-2021 End: 12-19-[address] [facility] Work Phone: Start: 12-19-2021 End: 12-19-2021 Departed Referred [facility] Start: 12-19-2021 Registered [facility] Start: 12-12-2021 End: 12-12-[address] [facility] Work Phone: Start: 12-12-2021 End: 12-12-2021 Departed Referred [facility] Start: 12-12-2021 [facility] Start: 12-08-2021 End: 12-08-[address] [facility] Work Phone: Start: 12-08-2021 End: 12-08-2021 Departed Referred [facility] Start: 12-08-2021 Reg[facility] Start: 12-05-2021 End: 12-05-[address] [facility] Work Phone: Start: 12-05-2021 End: 12-05-2021 [facility] Start: 12-05-2021 [facility] Start: 12-01-2021 End: 12-01-2021 [facility] Start: 12-01-2021 [facility] Start: 11-28-2021 End: 11-28-2021 [facility] Start: 11-28-2021 [facility] Start: 11-25-2021 Rx Renewal Monika Elias rt Work Phone: [id number] Work Phone: Start: 11-23-2021 End: 11-23-2021 Departed [facility] Start: 11-23-2021 [facility] Start: 11-22-2021 End: 11-22-2021 Departed [facility] Start: 11-22-2021 [facility] Start: 11-21-2021 End: 11-21-2021 Departed [facility] Start: 11-15-2021 AUDIT Monika Elias rt Work Phone: [id number] Work Phone: Start: 11-14-2021 End: 11-14-2021 Departed [facility] Start: 11-14-2021 [facility] Start: 11-08-2021 End: 11-08-2021 Departed [facility] Start: 11-08-2021 [facility] Start: 11-04-2021 End: 11-04-2021 [facility] Start: 11-04-2021 Registered Referred [facility] Start: 10-31-2021 End: 11-01-2021 Emergency department patient visit UNKNOWN PROVIDER [facility] Start: 10-31-2021 End: 11-01-2021 Emergency department patient visit Dante Kim MD Work Phone: [facility] Emergency Dept Comment on above: Other fatigue (Prima ry Dx) Start: 10-31-2021 End: 10-31-2021 Departed Referred [facility] Start: 10-21-2021 End: 10-29-2021 Evaluation and management of inpatient UNKNOWN PROVIDER [facility] Start: 10-21-2021 End: 10-29-2021 Evaluation and management of inpatient Lisa Michelle Work Phone: [facility] Comment on above: Leg swelling (Primar y Dx); Acute deep vein thrombosis (DVT) of proximal vein of lower extremity, unspecified laterality (HCC) Start: 10-20-2021 End: 10-20-2021 [facility]ed [facility] Start: 10-17-2021 Telephone encounter Nicole davis MD Work Phone: [facility] Comment on above: Missed Appointment Start: 09-19-2021 End: 09-19-2021 Departed Referred [facility] Start: 11-02-2020 AUDIT Monika Elias rt Work Phone: [facility] Work Phone: Start: 10-27-2020 AUDIT Monika Elias rt Work Phone: [facility] Work Phone: Start: 07-13-2020 Patient encounter procedure Monika Staley [facility] Work Phone: Start: 04-13-2020 Patient encounter procedure Wing Ritter [facility] Work Phone: Start: 04-07-2020 Patient encounter procedure Wing Ritter [facility] Work Phone: Start: 03-18-2020 Patient encounter procedure Wing Ritter [facility] Work Phone: Start: 01-20-2020 Patient encounter procedure Monika Staley MD [id number]-Hyyzv Work Phone: Start: 11-13-2019 End: 11-13-2019 Subsequent hospital visit by physician [facility] Comment on above: Non-pressure chronic ulcer left lower leg, 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] Start: 11-06-2019 Patient encounter procedure Monika Staley MD XJ-Jmyccvxnqh-Vxcyd Work Phone: Start: 06-18-2019 End: 06-18-2019 Subsequent [...] LUI Work Phone: Start: 12-22-2021 C-reactive protein Travis [...] Start: 10-26-2021 Electroencephalogram w/rec awake&asleep Sarina Pineda [employer] Work Phone: Start: 10-26-2021 Ct head/brain w/o co ntrast material Sarina Lomasver [facility] [employer] [facility] Work Phone: Start: 10-26-2021 Prothrombin time Andres Sheridan MD Work Phone: Start: 10-25-2021 Speech and language therapy regime Sarina Pineda [employer] [facility] Work Phone: Start: 10-25-2021 Prothrombin time [...] Blood count reticulo cyte automated Ellen Scherer [employer] Work Phone: Start: 10-21-2021 C-reactive protein Doloresua juan c aMssey Niesha [employer] [facility] Work Phone: Start: 10-21-2021 Non-invas physiologi c std extremity art 2 level Shruthi Frenchacre [employer] [facility] Work Phone: Start: 10-21-2021 Radex calcaneus mini mum 2 views Shruthi Frenchacre [employer] [facility] Work Phone: Start: 10-21-2021 Dup-scan xtr veins [...] Comment: Speci men Type: BLOOD SPECIMENOrdering Facility: [facility] Address: [address] [place] [address] Performed By: #### T SCR ####[facility]LO[facility]ANKCL[facility] [id number] [address] Start: 08-04-2021 Antibody screen Comment on above: Order Comment: Speci men Type: BLOOD SPECIMENOrdering Facility: [facility] Address: [address] [place] [address] Performed By: #### T SCR ####[facility]LOOD [facility]ANKCL[facility] [id number] [address] Start: 08-01-2021 Antibody screen Comment on above: Order Comment: Speci men Type: BLOOD SPECIMENOrdering Facility: [facility] Address: [address] [place] [address] Performed By: #### T SCR ####[facility] BLOOD BANKCLIA [id number] [place] [address] [facility] Start: 06-07-2021 Antibody screen Comment on above: Order Comment: Speci men Type: BLOOD SPECIMEN Performed By: #### T SCR ####[facility] BLOOD BANKCLIA [id number] [place] [address] [facility] Start: 09-02-2020 Lipid 1996 panel - [...] DTaP/Tdap/Td vaccine (2 - Td or Tdap) [facility] Start: 09-22-2026 DTaP/Tdap/Td vaccine (2 - Td) DTaP/Tdap/Td vaccine (2 - Td) [facility] Work Phone: Start: 09-22-2026 DTaP/Tdap/Td Vaccine s (2 - Td or Tdap) DTaP/Tdap/Td Vaccines (2 - Td or Tdap) [facility] Start: 09-02-2025 Lipid panel Lipid Panel [facility] Start: 03-02-2025 Registered Referred Registered Refer red [facility] [employer] Start: 02-26-2025 Registered Referred Registered [facility] [employer] Start: 02-23-2025 Registered Referred Registered [facility] [employer] Start: 02-19-2025 Registered Referred Registered Refer drew Mcclain [facility] [facility] Start: 02-16-2025 Registered Referred Registered Refer drew [facility] Start: 08-22-2024 DIABETES SCREEN DIABETES SCREEN [facility] Start: 12-04-2023 Lipid panel Lipids [facility] Start: 12-04-2023 Lipid screen Lipid screen [facility] Work Phone: Start: 09-13-2023 End: 09-13-2023 Patient encounter procedure 09/13/2023 11:30 AM EDT Office Visit [facility] [address] [place] [phone] Rebecca Buck MD [address] [facility] [address] [place], [place] [id number] [facility] Start: 08-31-2023 End: 08-31-2023 Patient encounter procedure 08/31/2023 9:30 AM EDT Appointment [facility] [address] [place] [phone] Rebecca Bcuk MD [address] [address] [facility] Start: 08-13-2023 End: 08-12-2024 Basic metabolic 1998 panel - Serum or Plasma Basic metabolic panel Lab Routine Calculus of ureter Expected: 08/13/2023 (Approximate), Expires: 08/12/2024 [email or web address] Comment on above: Expected: 08/13/2023 (Approximate), Expires: 08/12/2024 Start: 08-13-2023 End: 08-12-2024 CT Abdomen WO contrast CT abdomen pelvis wo IV contrast Imaging Routine Left flank pain Calculus of ureter Expected: 08/13/2023, Expires: 08/12/2024 [email or web address] Comment on above: Expected: 08/13/2023 , Expires: 08/12/2024 Start: 08-13-2023 End: 02-12-2024 PSA, Monitoring ([facility]) PSA, Monitoring ([facility]) Lab Routine Disease of prostate Expected: 08/13/2023 (Approximate), Expires: 02/12/2024 [facility] Work Phone: Comment on above: Expected: 08/13/2023 (Approximate), Expires: 02/12/2024 Start: 08-13-2023 End: 08-13-2023 Patient encounter procedure 08/13/2023 10:00 AM EDT Office Visit [facility] [address] [place] [phone] Rebecca Buck MD [address] [place] [address] [facility] Start: 07-17-2023 Bacteria identified in Urine by Culture [facility] Start: 07-17-2023 [facility] Start: 07-16-2023 Measurement of substance [facility] Start: 05-07-2023 Medicare Advantage A nnual Wellness Visit Medicare Advantage Annual Wellness Visit [facility] Start: 03-02-2023 Creatinine measurement Creatinine Le carmela [facility] Start: 03-02-2023 Potassium measurement Potassium Leve l [facility] Start: 08-22-2022 Diabetes mellitus screening Diabetes Screening [facility] Start: 01-05-2022 Influenza vaccination [facility] Start: 12-23-2021 EPV, Provider: Wing Ritter, Status: Pen, Time: 9:30 AM EPV, Provider: Wing Ritter, Status: Pen, Time: 9:30 AM [facility] Work Phone: Start: 12-05-2021 Influenza vaccination Flu vaccine (# 1) [facility] Start: 12-05-[address] [facility] Work Phone: Start: 12-05-2021 Complete blood count [facility] Work Phone: Start: 12-05-2021 [facility] Work Phone: Start: 12-01-2021 [facility] Work Phone: Start: 08-05-2021 COVID-19 VACCINE (4 - Booster for Moderna series) COVID-19 VACCINE (4 - Booster for Moderna series) [facility] Start: 08-05-2021 COVID-19 Vaccine (4 - Booster for Pfizer series) COVID-19 Vaccine (4 - Booster for Pfizer series) [facility] Start: 06-01-2021 COVID-19 Vaccine (4 - Booster for Pfizer series) COVID-19 Vaccine (4 - Booster for Pfizer series) [facility] Start: 05-07-2021 ADVANCE DIRECTIVE DISCUSSION ADVANCE DIRECTIVE DISCUSSION [facility] Start: 08-11-2020 Screening for malign ant neoplasm of colon [facility] Start: 07-30-2020 Screening for malign ant neoplasm of colon [facility] Start: 01-20-2020 Echocardiography Echocardiogram [facility] [address] [place] Work Phone: Start: 01-06-2020 Influenza vaccination INFLUENZA (#1) [facility] Start: 12-04-2019 Annual Wellness Visi t (AWV) Annual Wellness Visit (AWV) [facility] Start: 12-04-2019 [facility]inine [facility] Work [facility]: Start: 12-04-2019 Hepatitis C screen Hepatitis C scree n [facility] Work Phone: Comment on above: Postponed from 05/06 (Patient Refused) Start: 12-04-2019 Potassium monitoring Potassium monit oring [facility] Work Phone: Start: 12-04-2019 Prostate specific an tigen measurement Prostate Specific Antigen (PSA) Screening or Monitoring [facility] Start: 12-04-2019 Shingles Vaccine (1 of 2) Day gles Vaccine (1 of 2) [facility] Work Phone: Comment on above: Postponed from 05/06 (Patient Refused) Start: 06-07-2019 Colon Cancer Screen FIT/FOBT [facility] Work Phone: Start: 08-14-2017 LIPID SCREEN LIPID SCREEN [facility] Start: 2017 ADVANCE DIRECTIVE DISCUSSION ADVANCE DIRECTIVE DISCUSSION [facility] Start: 2017 PNEUMOCOCCAL: 65+ (1 - PCV) PNEUMOCOCCAL: 65+ (1 - PCV) [facility] Start: 2017 PNEUMOVAX AGE 65 AND OVER WITH 5YR LOOKBACK (#1) PNEUMOVAX AGE 65 AND OVER WITH 5YR LOOKBACK (#1) [facility] Start: 04-14-2016 DIABETES SCREEN DIABETES SCREEN [facility] Start: 2012 RSV Immunization age d 60 or older (1 - 1-dose 60+ series) RSV Immunization aged 60 or older (1 - 1-dose 60+ series) [facility] Start: 2007 PROSTATE CANCER SCRE ENING DISCUSSION PROSTATE CANCER SCREENING DISCUSSION [facility] Start: 2002 Shingles vaccine (1 of 2) Day gles vaccine (1 of 2) [facility] Start: 2002 SHINGRIX VACCINE (1 of 2) DAY GRIX VACCINE (1 of 2) [facility] Start: 2002 Tuberculosis screening COLOREC MONIQUE CANCER SCREENING,SEE MODIFIER [facility] Start: 2002 Zoster Vaccines (1 of 2) Zoste r Vaccines (1 of 2) [facility] Start: 1997 COLOGUARD (FIT-DNA) COLOGUARD (FIT-D NA) [facility] Start: 1997 Colonoscopy COLONOSCOPY [facility] Start: 1997 COLORECTAL CANCER SCREENING COLORECTAL CANCER SCREENING [facility] Start: [address] COLONOGRAPHY [facility] Start: 1997 FECAL OCCULT BLOOD FECAL OCCULT BLOO D [facility] Start: 1997 Screening for malign ant neoplasm of colon [facility] Start: 1997 SIGMOIDOSCOPY SIGMOIDOSCOPY [facility] Start: 1987 Diabetes screen Diabetes screen [facility] Start: 1971 Urine microalbumin profile DTAP,TDAP,TD (1 - Tdap) [facility] Start: 1970 ANNUAL PCP TEAM RESIDENTIAL PROGRAM WORKER KEESHA DISEASE VISIT ANNUAL PCP TEAM CHRONIC DISEASE VISIT [facility] Start: 1970 BP CONTROLLED (<130/80) BP CONTROLLE D (<130/80) [facility] Start: 1970 Diabetes mellitus screening Diabetes Screening [facility] Start: 1970 HEPATITIS C SCREENING HEPATITIS C JOBY VILLARREAL [facility] Start: 1970 Hepatitis C screening S [facility] Start: 1964 Adult depression screening assessment DEPRESSION SCREENING [facility] Start: 1964 Depression Screen Depression Screen [facility] Start: 1962 Diabetic foot examination Diabetes: Foot Exam [facility] Start: 1962 Glaucoma screening Diabetes: R etinopathy Screening [facility] Start: 1962 Preventive dental service Diabetes: Dental Exam [facility] Start: 1950 Echocardiography Echocardiogram [facility] Start: 1950 Hemoglobin A1c measurement Diabetes: Hemoglobin A1C [facility] Start: 1952 Lipid panel Lipid Panel [facility] Start: 1952 Screening for malign ant neoplasm of colon [facility] Bacteria identified in Urine by Culture Urine Culture [facility] Work Phone: End: 03-02-2022 CBC W Auto Differential panel - Blood CBC with Auto Differential Lab Routine One Time for 1 Occurrences starting 03/02/2022 until 03/02/2022 [facility] Work Phone: Comment on above: One Time for 1 Occur rences starting 03/02/2022 until 03/02/2022 End: 03-02-2022 Comprehensive metabolic 2000 panel - Serum or Plasma Comprehensive Metabolic Panel Lab STAT One Time for 1 Occurrences starting 03/02/2022 until 03/02/2022 [facility] Work Phone: Comment on above: One Time for 1 Occur rences starting 03/02/2022 until 03/02/2022 End: 09-06-2023 CT Abdomen WO contrast [facility] Work Phone: Comment on above: Once for 1 Occurrenc es starting 09/06/2023 until 09/06/2023 End: 12-22-2021 Culture, Blood 2 Culture, Blood 2 Microbiology STAT One Time for 1 Occurrences starting 12/22/2021 until 12/22/2021 [facility] Work Phone: Comment on above: One Time for 1 Occur rences starting 12/22/2021 until 12/22/2021 End: 12-22-2021 Microscopic examination of blood, culture Culture, Blood Microbiology STAT One Time for 1 Occurrences starting 12/22/2021 until 12/22/2021 [facility] Work Phone: Comment on above: One Time for 1 Occur rences starting 12/22/2021 until 12/22/2021 Microscopic examinat ion of blood, culture Culture, Blood Microbiology STAT 12/22/2021 12:22 AM EDT [facility] Work Phone: Oxygen therapy [[facility] Data Set] Initiate Oxygen Therapy Protocol Respiratory Care Routine As Needed until discontinued starting 10/21/2021 [facility] Comment on above: As Needed until disc ontinued starting 10/21/2021 Protime-INR Protime-INR Lab Routine Daily until discontinued starting 10/23/2021, 7 completed [facility] Work Phone: Comment on above: Daily until disconti nued starting 10/23/2021, 7 completed End: 03-02-2022 Protime-INR Protime-INR Lab Routine One Time for 1 Occurrences starting 03/02/2022 until 03/02/2022 [facility] Work Phone: Comment on above: One Time for 1 Occur rences starting 03/02/2022 until 03/02/2022 Spirometry panel Incentive stef metry Respiratory Care Routine Daily until discontinued starting 10/21/2021 [facility] Work Phone: Comment on above: Daily until disconti nued starting 10/21/2021 End: 10-21-2021 Wound ostomy eval Wound ostomy eval Wound Ostomy Routine One Time for 1 Occurrences starting 10/21/2021 until 10/21/2021 [facility] Work Phone: Comment on above: One Time for 1 Occur rences starting 10/21/2021 until 10/21/2021 [facility] NEGATED: Highlighted row has been ruled out! Planned Goals not documented [facility] Work Phone: Immunizations Immunization Date Immunization Notes Care Provider Fa cili 03-04-2019 influenza, high dose seasonal, preservative-free Sarika Salas [facility] 12-03-2018 pneumococcal polysac charide vaccine, 23 valent Sarika Salas [facility] Work Phone: 01-25-2018 influenza, high dose seasonal, preservative-free Sarika Salas [facility] 02-14-2017 influenza, injectabl e, quadrivalent, contains preservative Sarika Salas [facility] 09-22-2016 pneumococcal conjuga te vaccine, 13 valent Sarika ERAZOA Work Phone: 09-22-2016 tetanus toxoid, redu patrice diphtheria toxoid, and acellular pertussis vaccine, adsorbed Sarika ERAZOA Work Phone: 02-24-2016 influenza, injectabl e, quadrivalent, contains preservative Sarika ARMENDARIZ 02-08-2015 influenza virus vacc ine, unspecified formulation Sarika ERAZOA Work Phone: 02-04-2013 pneumococcal Conjuga te, unspecified formulation Sarika ERAZOA Work Phone: Payers Date Payer Category Payer Unknown [id number] 03-10-2024 Self-pay 01-05-2022 Medicaid 01-05-2022 Medicare 01-05-2022 Medicare [id number] 10-05-2021 Medicaid [id number] 06-07-2021 Medicare UHC MEDICARE UHC DUAL COMPLETE HMO SNP [id number] 06/07/2021-Present [phone] [address] [place] [address] Medicare [id number]. 2.7.3.295136.315 06-07-2021 Medicare UHC MEDICARE [employer]HE[employer] DUAL COMPLETE [id number] 06/07/2021-Present [phone] [address] [place] [address] [id number]. 2.7.3.875741.315 11-05-2019 Medicare UHC AARP MEDICAR E [facility] AARP MEDICARE HMO [id number] 11/05/2019-Present [facility] [id number] 1.2.840.911317.1.13.159. 2.7.3.131680.315 07-06-2015 Medicare UHC MEDICARE UHC MEDICARE COMPLETE xxxxxxxxx 2015-Present xxxxxxxxx 1.2.840.823415.1.13.239. 2.7.3.163185.315 1950 Unknown [id number] 2.16.840.1.373770.3.579. 2.668 1950 Unknown [id number] 2.16.840.1.806206.3.579. 2.668 1952 Unknown [id number] 2.16.840.1.941839.3.579. 2.668 1950 Unknown [id number] 2.16.840.1.490549.3.579. 2.668 1952 Unknown [id number] 2.16.840.1.423966.3.579. 2.668 1952 Unknown [id number] 2.16.840.1.010721.3.579. 2.668 1950 Unknown [id number] 2.16.840.1.097235.3.579. 2.668 Private Health Insurance Unknown Unknown [id number] 2.16.840.1.022641.3.579. 2.462 Unknown [id number] 2.16.840.1.554249.3.579. 2.462 Unknown [id number] 2.16.840.1.243567.3.579. 2.462 Unknown [id number] 2.16.840.1.708330.3.579. 2.462 Unknown [id number] 2.16.840.1.997893.3.579. 2.462 Unknown [id number] 2.16.840.1.619113.3.579. 2.462 Unknown [id number] 2.16.840.1.774508.3.579. 2.462 Unknown [id number] 2.16.840.1.892227.3.579. 2.462 Unknown [id number] 2.16.840.1.496612.3.579. 2.462 Unknown [id number] 2.16.840.1.571706.3.579. 2.462 Unknown [id number] 2.16.840.1.403717.3.579. 2.462 Unknown [id number] 2.16.840.1.397019.3.579. 2.462 Unknown [id number] 2.16.840.1.759901.3.579. 2.462 Unknown [id number] 2.16.840.1.942770.3.579. 2.462 Unknown [id number] 2.16.840.1.290253.3.579. 2.462 Unknown [id number] 2.16.840.1.457378.3.579. 2.462 Unknown [id number] 2.16.840.1.174291.3.579. 2.462 Unknown [id number] 2.16.840.1.042826.3.579. 2.462 Unknown [id number] 2.16.840.1.723175.3.579. 2.462 Unknown [id number] 2.16.840.1.965706.3.579. 2.462 Unknown [id number] 2.16.840.1.926931.3.579. 2.462 Unknown [id number] 2.16.840.1.870456.3.579. 2.462 Unknown [id number] 2.16.840.1.235909.3.579. 2.462 Unknown [id number] 2.16.840.1.267620.3.579. 2.462 Unknown [id number] 2.16.840.1.378465.3.579. 2.462 Unknown [id number] 2.16.840.1.940949.3.579. 2.462 Unknown [id number] 2.16.840.1.059818.3.579. 2.462 Unknown [id number] 2.16.840.1.464237.3.579. 2.462 Unknown [id number] 2.16.840.1.549730.3.579. 2.462 Unknown [id number] 2.16.840.1.868975.3.579. 2.462 Unknown [id number] 2.16.840.1.816825.3.579. 2.462 Unknown [id number] 2.16.840.1.941454.3.579. 2.462 Unknown [id number] 2.16.840.1.219732.3.579. 2.462 Unknown [id number] 2.16.840.1.990018.3.579. 2.462 Unknown [id number] 2.16.840.1.509865.3.579. 2.462 Unknown [id number] 2.16840.1.983687.3.579. 2.462 Unknown [id number] 2.16840.1.968444.3.579. 2.462 Unknown [id number] 2.16.840.1.859909.3.579. 2.462 Unknown [id number] 2.16.840.1.602543.3.579. 2.462 Unknown [id number] 2.16.840.1.222597.3.579. 2.462 Unknown [id number] 2.16840.1.882506.3.579. 2.462 Unknown [id number] 2.16.840.1.860450.3.579. 2.462 Unknown [id number] 2.16.840.1.134914.3.579. 2.462 Unknown [id number] 2.16.840.1.421828.3.579. 2.462 Unknown [id number] 2.16.840.1.540134.3.579. 2.462 Unknown [id number] 2.16.840.1.797240.3.579. 2.462 Unknown [id number] 2.16.840.1.955812.3.579. 2.462 Unknown [id number] 2.16.840.1.141186.3.579. 2.462 Unknown [id number] 2.16.840.1.486475.3.579. 2.462 Unknown [id number] 2.840.1.440204.3.579. 2.462 Unknown [id number] 2..840.1.254615.3.579. 2.462 Unknown [id number] 2.840.1.469224.3.579. 2.462 Unknown [id number] 2.840.1.105520.3.579. 2.462 Unknown [id number] 2.840.1.672600.3.579. 2.462 Unknown [id number] 2.840.1.724195.3.579. 2.462 Unknown [id number] 2.840.1.568883.3.579. 2.462 Unknown [id number] 2.840.1.009445.3.579. 2.462 Unknown [id number] 2.840.1.745025.3.579. 2.462 Unknown [id number] 2.840.1.002611.3.579. 2.462 Unknown [id number] .840.1.180958.3.579. 2.462 Unknown [id number] .840.1.839637.3.579. 2.462 Unknown [id number] 2.840.1.677615.3.579. 2.462 Unknown [id number] 2.840.1.172794.3.579. 2.462 Unknown [id number] 2.840.1.032803.3.579. 2.462 Unknown [id number] 2.16.840.1.009757.3.579. 2.462 Unknown [id number] 2.16.840.1.952710.3.579. 2.462 Unknown [id number] 2.16.840.1.824169.3.579. 2.462 Unknown [id number] 2.16.840.1.260528.3.579. 2.462 Unknown [id number] 2.16.840.1.534729.3.579. 2.462 Unknown [id number] 2.16.840.1.213906.3.579. 2.462 Unknown [id number] 2.16.840.1.066051.3.579. 2.462 Unknown [id number] 2.16.840.1.543956.3.579. 2.462 Unknown 55591500 2.16.840.1.382877.3.579. 2.462 Unknown 89030746 2.16.840.1.892233.3.579. 2.462 Unknown 05074695 2.16.840.1.601274.3.579. 2.462 Unknown 00487708 2.16.840.1.801020.3.579. 2.462 Unknown [id number] 2.16.840.1.114685.3.579. 2.462 Unknown 93314726 2.16.840.1.499216.3.579. 2.462 Unknown 94445348 2.16.840.1.146381.3.579. 2.462 Unknown 70247336 2.16.840.1.868016.3.579. 2.462 Unknown [id number] 2.16.840.1.053335.3.579. 2.462 Unknown 43127271 2.16.840.1.978930.3.579. 2.462 Unknown [id number] 2.16.840.1.676079.3.579. 2.462 Unknown 85364346 2.16.840.1.453914.3.579. 2.462 Unknown [id number] 2.16.840.1.848025.3.579. 2.462 Unknown 93530801 2.16.840.1.738508.3.579. 2.462 Unknown 88177453 2.16.840.1.090674.3.579. 2.462 Unknown 84209772 2.16.840.1.887216.3.579. 2.462 Unknown 77354384 2.16.840.1.862677.3.579. 2.462 Unknown 57383508 2.16840.1.857731.3.579. 2.462 Unknown 93999074 2.16.840.1.540569.3.579. 2.462 Unknown 78469368 2.840.1.493578.3.579. 2.462 Unknown 94681449 2.840.1.094865.3.579. 2.462 Unknown 41269703 2.840.1.040398.3.579. 2.462 Unknown 78375475 2.16840.1.703034.3.579. 2.462 Unknown 75947459 2.16840.1.937650.3.579. 2.462 Unknown 41923770 2.16840.1.436961.3.579. 2.462 Unknown 26320743 2.16840.1.754578.3.579. 2.462 Unknown 48629586 2.16840.1.394025.3.579. 2.462 Unknown 15304499 2.16.840.1.591352.3.579. 2.462 Unknown 06596879 2.16.840.1.823589.3.579. 2.462 Unknown 77669555 2.16840.1.054371.3.579. 2.462 Unknown 21003822 2.16.840.1.510673.3.579. 2.462 Unknown 04421378 2.16.840.1.762120.3.579. 2.462 Unknown 95802989 2.16.840.1.413229.3.579. 2.462 Unknown 71886925 2.16.840.1.720587.3.579. 2.462 Unknown 68835493 2.16.840.1.791448.3.579. 2.462 Unknown [id number] 2.16.840.1.517902.3.579. 2.462 Unknown [id number] 2.16.840.1.193569.3.579. 2.462 Unknown [id number] 2.16.840.1.893058.3.579. 2.462 Unknown [id number] 2.16.840.1.540218.3.579. 2.462 Unknown [id number] 2.16.840.1.288537.3.579. 2.462 Unknown [id number] 2.16.840.1.370174.3.579. 2.462 Unknown [id number] 2.16.840.1.038574.3.579. 2.462 Unknown [id number] 2.16.840.1.714483.3.579. 2.462 Social History Date Type Detail Facility Start: 05-23-2018 End: 05-19-2019 Tobacco smoking status NHIS Former smoker [facility] Phone: History of tobacco use Cigar Smoker [facility] Phone: Start: 05-19-2019 End: 08-13-2023 Cigarettes smoked current (pack per day) - Reported [facility] Phone: Start: 05-19-2019 End: 08-13-2023 Alcohol intake Current non-drinker of alcohol (finding) [employer] Work Phone: Start: 12-03-2018 History SDOH Physica l Activity DPW 7 [facility] Work Phone: Start: 12-03-2018 History SDOH Physica l Activity MPS 9 [facility] Work Phone: Start: 12-03-2018 End: 10-31-2021 History SDOH Stress 1 [facility] Work Phone: Start: 12-03-2018 History SDOH Financial 5 [facility] Work Phone: Start: 12-03-2018 History SDOH Transpo rt Med 2 [facility] Work Phone: Start: 1950 Sex Assigned At Not on file [facility] Work Phone: Start: 08-13-2012 End: 11-13-2019 Tobacco smoking status NHIS Never smoker [facility] Start: 05-23-2018 End: 11-13-2019 Tobacco use and exposure Never used [facility] Start: 11-13-2019 History SDOH Alcohol Std Drinks 98 [facility] Start: 10-11-2021 End: 02-15-2022 Exposure to SARS-CoV-2 (event) Not sure [facility] Start: 1950 Sex Assigned At Male W [facility] History of tobacco use Current smoker [facility] Work Phone: History of tobacco use Cigarette Smoker [facility] Work Phone: Start: 10-31-2021 End: 08-13-2023 Tobacco use panel [facility] Tobacco smoking stat us AZIS Unknown if ever smoked [facility] Work Phone: Start: 07-11-2024 End: 08-21-2024 Sex Male (finding) [facility] NEGATED: Highlighted row - - [facility] Work Phone: Medical Equipment Procedure Code Equipment Code Equipment Origin al Text Equipment Identifier Dates Kit Bactiseal Woodard maria guadalupe Silicone Barium Catheter Shunt Sterile - [id number] Start: 06-08-2021 Catheter Bactise al 14cm External Drainage Csf Sterile Latex Free - [id number] Start: 08-05-2021 Valve Certas Shannon nt Inline - [id number] Start: 06-08-2021 Valve Armando snow Inline - [id number] Start: 08-05-2021 Valve Armando snow Inline - [id number] Start: 08-09-2021 Goals Date Patient Goal Desired [...] status health issues are not documented Disease [facility] Work Phone: Mental Status Date Assessment Result Facility NEGATED: Highlighted row Cognitive function [Interpretation] Cognitive status health issues are not documented Disease [facility] Work Phone: Clinical Notes [...] Hydrocephalus, adult (CMS/HCC) (HCC) Kidney stone Neuropathy RN INVASIVE (ventriculoperitoneal) shunt status Past Surgical History: Procedure [...] 09/13/23 12:05 PM documented in this encounter [facility] 08-31-2023 Note S: Shanthi from [facility] [place] spoke with [facility] nurse regarding voiding trial procedure. [...] Protocols used: Information Only Call - No [id number] [facility] 08-31-2023 Telephone encounter Note S: Shanthi from [facility] spoke with [facility] nurse regarding voiding trial procedure. [...] Protocols used: Information Only Call - No Meqelf-SEJQK-PU [facility] 08-31-2023 Miscellaneous Notes S: Shanthi from [place] [place] spoke with [facility] nurse regarding voiding trial procedure. B: Onset of symptoms/concern today. A: [facility] is calling to make sure that [...] Protocols used: Information Only Call - No Pmbocz-FNUSZ-BY documented in this encounter [facility] 08-29-2023 Telephone encounter Note Lm on daughters vm to advise them to call the number for the pharmacy benefit manager to get clarification, and to call back with further questions [facility] 08-29-2023 Miscellaneous Notes Lm on daughters vm to advise them to call the number for the pharmacy benefit manager to get clarification, and to call back with further questions Yes, they will need to call the number given to them. Please advise Name of caller: Sahnthi Contact phone number: [phone] Relationship to Patient: patient Provider: MD Quinn Practice: [facility] Urology Chief Complaint/Reason for Call: Shanthi called in to see if Pt would need to come by cot for his CT appt due to Pt being Boaz. CAC did reach out to office and was advised to reach out to Central Scheduling. CAC did reach out to and was advised to let [facility] know that she would need to reach out to call Maury Avila at [facility] [phone] to get clarifications. CAC did reach back out to [facility] and advised and provider Maury's #. Please advise Best time of day caller can be reached: Any Patient advised that office/PCP has 24-48 business hours to return their call: N/A documented in this encounter [facility] 08-27-2023 Telephone encounter Note Yes, they will need to call the number given to them. [facility] 08-27-2023 Telephone encounter Note Please advise [facility] 08-21-2023 Telephone encounter Note Name of caller: Shanthi Contact phone number: [phone] Relationship to Patient: patient Provider: MD Quinn Practice: [facility] Urology Chief Complaint/Reason for Call: Shanthi called in to see if Pt would need to come by cot for his CT appt due to Pt being Boaz. TEA did reach out to office and was advised to reach out to Central Scheduling. CAC did reach out to and was advised to let [facility] know that she would need to reach out to call Maury Cedeño Health Sciences Manager at [facility] [phone] to get clarifications. CAC did reach back out to [facility] and advised and provider Maury's #. Please advise Best time of day caller can be reached: Any Patient advised that office/PCP has 24-48 business hours to return their call: N/A [facility] 08-13-2023 History of Present illness [...] Hydrocephalus, adult (CMS/HCC) (HCC) Kidney stone Neuropathy RN INVASIVE (ventriculoperitoneal) shunt status Past Surgical History: Past [...] 08/13/23 10:45 AM documented in this encounter [facility] 06-25-2023 Telephone encounter Note [facility] called in stating appt scheduled 07/10/23 Guy has to be made further out, pt being transported by cot. Changed appt to 08/13/23 per [facility] only avail time for transport, first avail with DR Buck at 10:00 AM. [facility] 06-25-[address] [facility] called [facility] stating appt scheduled 07/10/23 Guy has to be made further out, pt being transported by cot. Changed appt to 08/13/23 per [facility] only avail time for transport, first avail with DR Buck at 10:00 AM. documented in this encounter [facility] 12-22-2021 Hospital Discharge instructions SANIA Lou - 12/22/2021 2:32 AM EDT Please take medication as prescribed Please follow up with your Physicians as instructed in this discharge paperwork Thank you for choosing [facility] I appreciate your patience Please return to the emergency department if your symptoms worsen, or new symptoms develop as discussed documented in this encounter [facility] Work Phone: 10-29-2021 Note Hospitalist Discharg [...] abnormality and previous indwelling tubing history of RN INVASIVE shunt ? #?Bilateral lower extremity wounds-wound care [...] neurologist. Patient will be transferred to the fpc and his Coumadin was continued, dosing instructions were given. Wound care was given for his lower extremity wounds. Consults: neurology, vascular surgery, gastroenterology Discharge Instructions: Diet: No diet orders on file Activity: as tolerated Disposition: Patient discharged in stable condition to fpc . Greater than 30 minutes spent discharging [...] Does not apply route Duration: 5 years2023 Medical Compression Stockings Misc 1 each by [...] Your Medications These medications were sent to [facility] [address] [place] [address] [address] [facility] - P [phone] - F [phone] [facility] [address] ? levETIRAcetam 750 MG tablet ? warfarin 6 MG tablet Recommended Follow-up: No follow-up provider specified. Complexity of Follow up: [] Moderate Complexity: follow up within 7-14 calendar days (24116) [x] Severe Complexity: follow up within 7 calendar days (78174) Follow up Testing, Pending results or Referrals [...] fatigue or (more content not included)... [facility] 10-29-2021 Hospital Discharge instructions Fabi Subramanian RN - 10/29/2021 12:03 PM EDT Continuity of Care Form Patient Name: Andrew Sifuentes : 1950 Admit date: 10/21/2021 Discharge date: 10/29/2021 Code Status Order: Full Code Advance Directives: Admitting Physician: May Cash MD PCP: MONIKA STALEY MD [facility] Unit/Room[facility] 146/1461 Discharging Unit Emergency Contact: Extended Emergency Contact Information Primary Emergency Contact: Triny Damon Address: [address] [place] [address] [place] [address] [facility] Relation: Brother/Sister Secondary Emergency Contact: Melissa Sifuentes Mobile Relation: Child Preferred language: Haitian Past Surgical History: Past Surgical History: Procedure Laterality Date BRAIN SURGERY CHOLECYSTECTOMY COLONOSCOPY HERNIA REPAIR Immunization History: Immunization History Administered Date(s) Administered Influenza Virus Vaccine 02/08/2015 Influenza, High Dose (Fluzone 65 yrs and older) 01/25/2018, 03/04/2019 Influenza, Quadv, IM, (6 mo and older Fluzone, Flulaval, Fluarix and 3 yrs and older Afluria) 02/24/2016, 02/14/2017 Pneumococcal Conjugate 13-valent (Ymwnjhr50) 09/22/2016 Pneumococcal Conjugate Vaccine 02/04/2013 Pneumococcal Polysaccharide (Qawwmcoos35) 12/03/2018 Tdap (Boostrix, Adacel) 09/22/2016 Active Problems: Patient Active Problem List Diagnosis Code Flank pain, acute R10.9 Night muscle spasms M62.838 Chronic fatigue R53.82 Hydrocephalus ([facility]) G91.9 Neuropathy G62.9 Erectile dysfunction N52.9 Fluid retention in tissues R60.9 Hyperlipidemia E78.5 Morbidly obese ([facility]) E66.01 Leg wound, left S81.802A DVT, lower extremity, recurrent, unspecified laterality ([facility]) I82.409 Moderate malnutrition ([facility]) E44.0 History of seizures Z87.898 [...] Dependent Dressing Dependent Toileting Dependent Feeding Dependent Sleeping Car Porter Dependent Med Delivery whole in pudding Wound [...] Q4H prn SOB Oxygen Therapy: {Therapy; copd oxygen:11610} Ventilator: { CC Vent List:[id number]} Rehab Therapies: {THERAPEUTIC INTERVENTION:5010131653} Weight Bearing Status/Restrictions: Weight Bearing - Patient was bedbound in hospital Other Medical Equipment (for information only, NOT a DME order): wheelchair, hospital bed, and Boaz Other Treatments: Patient's personal belongings (please select all that are sent with patient): {[facility] DME Belongings:[id number]} RN SIGNATURE: CASE MANAGEMENT/SOCIAL WORK SECTION Inpatient Status Date: Readmission Risk Assessment Score: Readmission Risk Risk of Unplanned Readmission: 11 Discharging to Facility/ Agency Name: Address: Phone: Fax: Dialysis Facility (if applicable) Name: Address: Dialysis Schedule: Phone: Fax: Will Call Order Clerk/Chemist Assistant signature: {Esignature:[id number]} PHYSICIAN SECTION Prognosis: Fair Condition at Discharge: Stable Rehab Potential (if transferring to Rehab): Fair Recommended Labs or Other Treatments After Discharge: Coumadin based on INR target range 2-3, Coumadin 6 mg on 10/30 and 10/31, recheck INR 11/01 and notify physician, ideally should be on 6 mg alt with 7 mg daily, PT/OT, follow-up with neurologist in 1 month, continue [facility] Physician Certification: I certify the above information and transfer of Andrew Sifuentes is necessary for the continuing treatment of the diagnosis listed and that he requires [facility] for greater than 30 days. Update Admission H&P: No change in H&P PHYSICIAN SIGNATURE: documented in this encounter [facility] Work Phone: 10-29-2021 History of Present illness Narrative [facility] ([facility]) Inpatient Warfarin Consult HPI: Andrew Sifuentes is a 71 y.o. 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 Past Medical History: Diagnosis Date ED (erectile dysfunction) Hemorrhoids Hydrocephalus, adult (HCC) Kidney stone Neuropathy RN INVASIVE (ventriculoperitoneal) shunt status Patient is newly referred to the [facility] clinic for warfarin management. Pt was referred [...] PharmD [facility] Consult Service is available daily [phone]. Please search for covering pharmacist name via Social Yuppies or Groups --> Pharmacy --> Anti-Coagulation Consult Pharmacist (on 3rd page). If no response via Pitzive, please page [phone]. Patient seen and chart reviewed. Afebrile. Adequate [...] yr M with PMH obstructive hydrocephalus s/p RN INVASIVE shunt in 1987, needing multiple revisions and [...] normal limits and both old and new RN INVASIVE shunt tubing noted. At present patient is awake, follows commands, was able to tell his name, and that he was in hospital but not oriented to time. Per documentation patient had NCSE in May 2021, was on Vimpat, but it was discontinued as there was no evidence of recurrent seizures in july 2021 by Neurology at [facility], per daughter patient was on [...] normal limits and both old and new RN INVASIVE shunt tubing noted -EEG mild to moderate slow, no seizures reported -Labs reviewed -Hydrocephalus management per Neurosurgery. At present patient does not have hydrocephalus on CT head done this admission. No Neurosurgery services available as inpatient in [facility]. Patient can follow up with Neurosurgery as outpatient and if ends up needing inpatient neurosurgery requirement then may need to be transferred to [facility]. -No clear clinical signs of ventriculitis. Defer evaluation to primary medical team/ID as deemed necessary. -Discussed with daughter in detail on . She was concerned that patient has had h/o seizures, and he has been taken off seizure medication, per note documentation patient had NCSE in May 2021 when he was admitted to [facility]. Per daughter she would want [...] is no in house Neurology coverage at [facility] over the weekend, primary hospitalist team to contact sales solutions representative Neurology at [facility] for any weekend neurological issues related to the patient and if need to discuss any neurological test results/findings. Other deal in house Neurology coverage will be available from Sunday at [facility] and please call sales solutions representative Neurology back on Sunday if need further assistance. This note has been generated using Myngle dictation software. It may contain incorrect words, punctuation's and spellings that were not noted in the review of the note prior to signing. This note has been generated using Myngle dictation software. It may contain incorrect words, [...] eGFR >90.0 >60 mL/min EGFR IF NonAfrican [place] Verdean >90.0 >60 mL/min Calcium 9.1 8.4 - [...] 26 AST 24 BILITOT 0.4 LABALBU 3.7 @[facility]) ABGs: )No results for input(s): [...] Radiology ACCESSION EXAM DATE/TIME PROCEDURE ORDERING PROVIDER [id number] 10/21/2021 15:30 EDT CR Calcaneus 2+ Views [id number] -MARIBEL MALIKIE Joel CPT code 91954 Reason For Exam (CR Calcaneus 2+ Views [...] Result Date: 10/26/2021 [id number] Tomography ACCESSION EXAM DATE/TIME PROCEDURE ORDERING PROVIDER [id number] 10/26/2021 11:[address] Head or Brain w/o JUNIE PINEDA, SARINA Contrast CPT code 28404 Reason For Exam (CT Head or Brain w/o Contrast) hydrocephalus. thank you Report CLINICAL INFORMATION: Hydrocephalus. Shunt. 3 mm axial cuts through the head are obtained without IV contrast. The examination is compared to a previous study dated 06/29/2014. FINDINGS: Old RN INVASIVE shunt tubing is noted bilaterally. The new [...] are clear. IMPRESSION: 1. Old and new RN INVASIVE shunt tubing. 2. No hydrocephalus. 3. Atrophy [...] Imaging ACCESSION EXAM DATE/TIME PROCEDURE ORDERING PROVIDER [id number] 10/23/2021 11:08 EDT MRI Abdomen w/o Contrast WING SRIVASTAVA CPT code 13404 Reason For Exam (MRI Abdomen w/o Contrast) [...] Medicine ACCESSION EXAM DATE/TIME PROCEDURE ORDERING PROVIDER [id number] 10/21/2021 07:55 EDT NM Pulmonary Perfusion [id number] -AMY CASH w/ Vent Aerosol CPT code 68689 A9567 Reason For Exam (NM Pulmonary Perfusion [...] Bilateral Result Date: 10/22/2021 [facility] --- Ankle Brachial Index Report Patient DO GurpreetB: 1950 Study 10/21/2021 Name: Andrew Gonzalez (71yrs) Date: Age: 71 Account: [id number] Gender: M Loc: 444W BP: Ordering Physician: Shruthi Malik Millwork Estimator: Rody Cross RDMS, RVT Interpreting Physician: Carina Call --- Location: [facility] --- Indications: Foot wounds. Originally ordered as a full PVR. Ordering SUPPLY CHAIN ANALYST had to modify the order to [...] supine position. Images were obtained using a [employer] vascular ultrasound machine. --- Arterial pressure indices: [...] DUPLEX Result Date: 10/21/2021 [facility] [place] --- Lower Extremity Venous Duplex Report Patient DO GurpreetB: 1950 Study 10/21/2021 Name: Andrew Gonzalez (71yrs) Date: Age: 71 Account: [id number] Gender: M Loc: 444 BP: Ordering Physician: May Cash Millwork Estimator: Rody Cross RDMS, RVT Interpreting Physician: Carina Call --- Location: [facility] --- Indications: Bilateral lower leg [...] supine position. Images were obtained using a [employer] vascular ultrasound machine. --- Venous flow and [...] Radiology ACCESSION EXAM DATE/TIME PROCEDURE ORDERING PROVIDER [id number] 10/21/2021 08:16 EDT CR Chest 1 View Frontal [id number] MAY BOGGS CPT code 65173 Reason For Exam (CR Chest 1 View [...] Tomography ACCESSION EXAM DATE/TIME PROCEDURE ORDERING PROVIDER [id number] 10/22/2021 13:[address] Abdomen/Pelvis (No SRIVASTAVA, WING PO, No IV) CPT code 84573 Reason For Exam (CT Abdomen/Pelvis (No PO, [...] Imaging ACCESSION EXAM DATE/TIME PROCEDURE ORDERING PROVIDER [id number] 10/27/2021 13:14 EDT MRI Brain w/o Contrast UNASSIGNED, UNASSIGNED CPT code 25363 Reason For Exam (MRI Brain w/o Contrast) stroke Patient has RN INVASIVE shunt in place, please follow Radiology protocol [...] included. Hospitalist Progress Note 10/28/2021 11:37 AM [phone]: Please page me @ [phone] for patient care issues. [phone]: Please page chemistry faculty member for any issues@ night Subjective: Admit Date: [...] 9.1 ANIONGAP 5 LIVER PROFILE: Recent Labs 10/28/218 AST 24 ALT 26 BILITOT 0.4 ALKPHOS [...] abnormality and previous indwelling tubing history of RN INVASIVE shunt # Bilateral lower extremity wounds-wound care [...] Services This report was created using the [facility] Speaking voice-activated system. Despite prompt dictation and careful editorial review, there may be subtle contextual errors in this report, due to misrecognition of the spoken word. Speech Language Pathology Facility/Department: [facility] Dysphagia Treatment Note [...] gloves were worn throughout this session. [facility] ([facility]) Inpatient Warfarin Consult HPI: Andrew Sifuentes is a 71 y.o. 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 Past Medical History: Diagnosis Date ED (erectile dysfunction) Hemorrhoids Hydrocephalus, adult (HCC) Kidney stone Neuropathy RN INVASIVE (ventriculoperitoneal) shunt status Patient is newly referred to the [facility] clinic for warfarin management. Pt was referred [...] 4. Will provide warfarin education including [facility] warfarin booklet, if appropriate. Brionna Le, PharmD candidate Josie Gupta RPh, PharmD [facility] Consult Service is available daily [phone]. Please search for covering pharmacist name via Social Y[employer]ies or Groups --> Pharmacy --> Anti-Coagulation Consult Pharmacist (on 3rd page). If no response via [email or web address], please page [phone]. Follow up b/l foot wounds. No new [...] yr M with PMH obstructive hydrocephalus s/p RN INVASIVE shunt in 1987, needing multiple revisions and [...] normal limits and both old and new RN INVASIVE shunt tubing noted. At present patient is awake, follows commands, was able to tell his name, and that he was in hospital but not oriented to time. Per documentation patient had NCSE in May 2021, was on Vimpat, but it was discontinued as there was no evidence of recurrent seizures in july 2021 by Neurology at [facility], per daughter patient was on [...] normal limits and both old and new RN INVASIVE shunt tubing noted -EEG mild to moderate slow, no seizures reported -Labs reviewed -Hydrocephalus management per Neurosurgery. At present patient does not have hydrocephalus on CT head done this admission. No Neurosurgery services available as inpatient in [facility]. Patient can follow up with Neurosurgery as outpatient and if ends up needing inpatient neurosurgery requirement then may need to be transferred to [facility]. -No clear clinical signs of ventriculitis. Defer evaluation to primary medical team/ID as deemed necessary. -Discussed with daughter in detail on . She was concerned that patient has had h/o seizures, and he has been taken off seizure medication, per note documentation patient had NCSE in May 2021 when he was admitted to [facility]. Per daughter she would want [...] interim. This note has been generated using Myngle dictation software. It may contain incorrect words, punctuation's and spellings that were not noted in the review of the note prior to signing. This note has been generated using Myngle dictation software. It may contain incorrect words, [...] LABALBU, AMYLASE, LIPASE in the last 72 hours.@[facility]) ABGs: )No results for input(s): [...] Radiology ACCESSION EXAM DATE/TIME PROCEDURE ORDERING PROVIDER [id number] 10/21/2021 15:30 EDT CR Calcaneus 2+ Views [id number] -SHRUTHI MALIK Left CPT code 76260 Reason For Exam (CR Calcaneus 2+ Views [...] Tomography ACCESSION EXAM DATE/TIME PROCEDURE ORDERING PROVIDER [id number] 10/26/2021 11:[address] Head or Brain w/o EDWINJUNIE MASON, SARINA Contrast CPT code 77242 Reason For Exam (CT Head or Brain w/o Contrast) hydrocephalus. thank you Report CLINICAL INFORMATION: Hydrocephalus. Shunt. 3 mm axial cuts through the head are obtained without IV contrast. The examination is compared to a previous study dated 06/29/2014. FINDINGS: Old RN INVASIVE shunt tubing is noted bilaterally. The new [...] are clear. IMPRESSION: 1. Old and new RN INVASIVE shunt tubing. 2. No hydrocephalus. 3. Atrophy [...] Imaging ACCESSION EXAM DATE/TIME PROCEDURE ORDERING PROVIDER [id number] 10/23/2021 11:08 EDT MRI Abdomen w/o Contrast WING SRIVASTAVA CPT code 65742 Reason For Exam (MRI Abdomen w/o Contrast) [...] Medicine ACCESSION EXAM DATE/TIME PROCEDURE ORDERING PROVIDER [id number] 10/21/2021 07:55 EDT NM Pulmonary Perfusion [id number] MAY BOGGS w/ Vent Aerosol CPT code 18490 A9567 Reason For Exam (NM Pulmonary Perfusion [...] Bilateral Result Date: 10/22/2021 [facility] --- Ankle Brachial Index Report Patient DO GurpreetB: 1950 Study 10/21/2021 Name: Andrew Gonzalez (71yrs) Date: Age: 71 Account: [id number] Gender: M Loc: 444W BP: Ordering Physician: Shruthi Malik Millwork Estimator: Rody Cross RDMS, RVT Interpreting Physician: Carina Call --- Location: [facility] --- Indications: Foot wounds. Originally ordered as a full PVR. Ordering SUPPLY CHAIN ANALYST had to modify the order to [...] supine position. Images were obtained using a [employer] vascular ultrasound machine. --- Arterial pressure indices: [...] DUPLEX Result Date: 10/21/2021 [facility] --- Lower Extremity Venous Duplex Report Patient DO GurpreetB: 1950 Study 10/21/2021 Name: Andrew Hedrick71yrs) Date: Age: 71 Account: [id number] Gender: M Loc: 444 BP: Ordering Physician: May Cash Millwork Estimator: Rody Cross RDMS, RVT Interpreting Physician: Carina Call --- Location: [facility] --- Indications: Bilateral lower leg edema. --- CRITICAL RESULTS: A critical finding, was reported to TATILA Scherer by Rody Cross , on 10/21/2021 [...] supine position. Images were obtained using a [employer] vascular ultrasound machine. --- Venous flow and [...] Result Date: 10/21/2021 [id number] Radiology ACCESSION EXAM DATE/TIME PROCEDURE ORDERING PROVIDER [id number] 10/21/2021 08:16 EDT CR Chest 1 View Frontal [id number] MAY BOGGS CPT code 49321 Reason For Exam (CR Chest 1 View [...] Result Date: 10/22/2021 [id number] Computed Tomography ACCESSION EXAM DATE/TIME PROCEDURE ORDERING PROVIDER [id number] 10/22/2021 13:[address] Abdomen/Pelvis (No SRIVASTAVA, WING PO, No IV) CPT code 56753 Reason For Exam (CT Abdomen/Pelvis (No PO, [...] 12:48 PM Consults Speech Language Pathology Facility/Department: [facility] Dysphagia Treatment Note [...] reactivity and state change, indicative of a gflk-br-fahvnujb diffuse encephalopathy of nonspecific etiology. There are [...] Easy to chew diet/cut up. NEVILLE Jones M.A.CCC/AUTOMATIC STACKER Time session ended: 1156 Total session minutes: 23 Images from the original note were not included. Hospitalist Progress Note 10/27/2021 10:40 AM [phone]: Please page me @ [phone] for patient care issues. [phone]: Please page chemistry faculty member for any issues@ night Subjective: Admit Date: [...] Services This report was created using the [facility] Speaking voice-activated system. Despite prompt dictation and careful editorial review, there may be subtle contextual errors in this report, due to misrecognition of the spoken word. [facility] ([facility]) Inpatient Warfarin Consult HPI: Andrew Sifuentes is a 71 y.o. 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 Past Medical History: Diagnosis Date ED (erectile dysfunction) Hemorrhoids Hydrocephalus, adult (HCC) Kidney stone Neuropathy RN INVASIVE (ventriculoperitoneal) shunt status Patient is newly referred to the [facility] clinic for warfarin management. Pt was referred [...] 4. Will provide warfarin education including [facility] warfarin booklet, if appropriate. Thank you for this consult Brionna Le, PharmD candidate Josie Gupta RPh, PharmD [facility] Consult Service is available daily [phone]. Please search for covering pharmacist name via Social Y[employer]ies or Groups --> Pharmacy --> Anti-Coagulation Consult Pharmacist (on 3rd page). If no response via [email or web address], please page [phone]. I cleaned under patient's finger nails with [...] if concern Hydrocephalus Chronic WOODARD's - Revised RN INVASIVE shunt - daughter requested that pt have CT / MRI of brain and neurology be consulted, this was done. - "Hydrocephalus management per Neurosurgery. At present patient does not have hydrocephalus on CT head done this morning. No Neurosurgery services available as inpatient in [facility]. Patient can follow up with Neurosurgery as outpatient and if ends up needing inpatient neurosurgery requirement then may need to be transferred to [facility]. " Seizure history, unspecified - daughter requested [...] report from nursing. Continue wound care. [facility] ([facility]) Inpatient Warfarin Consult HPI: Andrew Sifuentes is a 71 y.o. 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 Past Medical History: Diagnosis Date ED (erectile dysfunction) Hemorrhoids Hydrocephalus, adult (HCC) Kidney stone Neuropathy RN INVASIVE (ventriculoperitoneal) shunt status Patient is newly referred to the [facility] clinic for warfarin management. Pt was referred [...] dose accordingly. 3. [facility] will manage while inpatient and sign off at discharge. Patient resides in a SNF. 4. Will provide warfarin education including [facility] warfarin booklet, if appropriate. Thank you for this consult Brionna Le, PharmD candidate Josie Gupta RPh, PharmD [facility] Consult Service is available daily [phone]. Please search for covering pharmacist name via Social Y[employer]ies or Groups --> Pharmacy --> Anti-Coagulation Consult Pharmacist (on 3rd page). If no response via PerfectServe, please page [phone]. Moon daughter stated that any of patient's family can call and obtain an update on patient's status. Speech Language Pathology Facility/Department: [facility] CLINICAL BEDSIDE SWALLOW EVALUATION [...] a small bore straw. Additionally discussed with AUTOMATIC STACKER, agreeable to assess tomorrow. Recent Chest Xray/CT [...] and liquids between bites. Treatment Plan Requires AUTOMATIC STACKER Intervention: Yes Duration of Treatment: 2 weeks [...] Education Response: Verbalizes understanding;Needs reinforcement Therapy Time AUTOMATIC STACKER Individual Minutes Time In: 826 Time Out: 852 Minutes: 26 NEVILLE Jones 10/26/2021 9:20 AM Comprehensive Nutrition Assessment Type and Reason for Visit: Initial (DT referral for wounds) Nutrition Recommendations/Plan: 1. Recommend to continue: Easy to Chew diet with Thin Liquids as currently ordered and safe for patient to participate in. Discussed with: RN, SUPPLY CHAIN ANALYST, and AUTOMATIC STACKER. AUTOMATIC STACKER to assess tomorrow, best diet and liquid [...] & deltoids),Scapula (trapezius) Fluid Accumulation: Mild Extremities Supervisor Printing And Stamping Strength: Not Performed Nutrition Assessment: 71 year [...] a small bore straw. Additionally discussed with AUTOMATIC STACKER, agreeable to assess tomorrow. Nutrition Related Findings: [...] Anthropometric Measures: Height: 5' 7.01" (170.2 cm) [place] Body Weight (IBW): 148 lbs (67 kg) Admission Body Weight: 240 lb (108.9 kg) (stated 10/21/21) Current Body Weight: 205 lb 4 oz (93.1 kg) (10/25/21), 138.7 % IBW. Weight Source: Bed Scale Current BMI (kg/m2): 32.1 Usual Body Weight: 272 lb 11.3 oz (123.7 kg) (05/30/21 and 232.5# noted 08/14/21 at [facility] per EMR Review) % Weight Change (Calculated): -24.7 BMI Categories: Obese Class 1 (BMI 30.0-34.9) Estimated Daily Nutrient Needs: Energy Requirements Based On: Kcal/kg Weight Used for Energy Requirements: [place] (67.15 kg) Energy (kcal/day): 8389-1106 (27-32 kcal/kg IBW) --> increased need d/t wounds Weight Used for Protein Requirements: [place] (67.15 kg) Protein (g/day): 67-101 (1.0-1.5 g protein/kg IBW) Method Used for Fluid Requirements: Other (Comment) Fluid (ml/day): 2452-5149 mL daily or per MD Nutrition Diagnosis: [...] Plan of Care discussed with: Patient, RN, SUPPLY CHAIN ANALYST Edwin Goals: Goals: other (specify) Specify [...] to determine Puja Almanza RD, LD Contact: [phone] Or Via Social Yuppies Hematology/Oncology Attending Progress Note SUBJECTIVE: Patient seen [...] IRON, TIBC, FERRITIN No results found for: [id number] No results found for: FOLATE PT 15.6 INR 1.5 CA 19 - 9 is 17 Protein S 138% Protein C 186% ASSESSMENT AND PLAN GI input appreciated. Patient continues with subtherapeutic INR. GI input appreciated. Discussed with patient's direct support staff. Will continue monitor. Total visit time > 35 minutes. [facility] ([facility]) Inpatient Warfarin Consult HPI: Andrew Sifuentes is a 71 y.o. 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 Past Medical History: Diagnosis Date ED (erectile dysfunction) Hemorrhoids Hydrocephalus, adult (HCC) Kidney stone Neuropathy RN INVASIVE (ventriculoperitoneal) shunt status Patient is newly referred to the [facility] clinic for warfarin management. Pt was referred [...] 4. Will provide warfarin education including [facility] warfarin booklet, if appropriate. Thank you for this consult Brionna Le, PharmD candidate Josie Gupta [facility], PharmD [facility] Consult Service is available daily [phone]. Please search for covering pharmacist name via Social Y[employer]ies or Groups --> Pharmacy --> Anti-Coagulation Consult Pharmacist (on 3rd page). If no response via [email or web address], please page [phone]. Progress Note 10/25/2021 9:36 AM Name: Andrew [...] if concern Hydrocephalus Chronic WOODARD's - Revised RN INVASIVE shunt DC planning - 10/25/21: INR subtherapeutic, [...] if concern Hydrocephalus Chronic WOODARD's - Revised RN INVASIVE shunt DC planning - Can be DC'd back to ECF once MRI done if no acute findings, MRI is done, defer to hem / onc on plan for that, awaiting chest PA with fluoro Patient seen and chart reviewed. Consult dictated. Will ask GI to assess concerning the etiology of liver lesions. Will continue to monitor. [facility] ([facility]) Inpatient Warfarin Consult HPI: Andrew Sifuentes is a 71 y.o. 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 Past Medical History: Diagnosis Date ED (erectile dysfunction) Hemorrhoids Hydrocephalus, adult (HCC) Kidney stone Neuropathy RN INVASIVE (ventriculoperitoneal) shunt status Patient is newly referred to the [facility] clinic for warfarin management. Pt was referred [...] dose accordingly. 3. [facility] will manage while inpatient and sign off at discharge. Patient resides in a SNF. 4. Will provide warfarin education including [facility] warfarin booklet, if appropriate. Thank you for this consult Brionna Le, PharmD candidate Josie Gupta RPh, PharmD [facility] Consult Service is available daily [phone]. Please search for covering pharmacist name via Pitzive or Groups --> Pharmacy --> Anti-Coagulation Consult Pharmacist (on 3rd page). If no response via PerfectServe, please page [phone]. Follow up foot wounds Patient is more alert this morning. Waffle boots are on Ulcer left heel ulcer right foot Foot drop PE, chart reviewed. Patient relates that he does not walk at home. c ontinue wound care. Images from the original note were not included. Hospitalist Progress Note 10/23/2021 1:47 PM [phone]: Please page me ([phone]) or perfect serve me for patient care issues. [phone]: Please page IMS night Hospitalist for any issues. Subjective: Admit Date: 10/21/2021 PCP: MONIKA STALEY MD Room#: 608/0027 Admitting Synopsis: 71 y/o male presents from [...] if concern Hydrocephalus Chronic WOODARD's - Revised RN INVASIVE shunt DC planning - Can be DC'd [...] Hemorrhoids Hydrocephalus, adult (HCC) Kidney stone Neuropathy RN INVASIVE (ventriculoperitoneal) shunt status Medications: sodium chloride warfarin [...] of Hospitalist Medicine Inpatient Medical Services PAGER: [phone] Nutrition rescreen completed. Pt referred to RD for foot ulcers. Occupational Therapy Facility/Department: [facility] Occupational Therapy Initial Assessment Name: Andrew Sifuentes : 1950 Date of Service: 10/23/2021 OT eval and treat orders received. Chart reviewed. Per notes pt from [facility], is Boaz lift at baseline, non-ambulatory, and requires assist for all ADLs. Will d/c OT orders. Elizabeth Gutierrez OT Physical Therapy Facility/Department: [facility] Physical Therapy Initial Assessment Name: Andrew Sifuentes : 1950 Date of Service: 10/23/2021 PT eval and treat orders received. Chart reviewed. Per notes pt from [facility], is Boaz lift at baseline, non-ambulatory. Will d/c PT orders. Lloyd Silva, CHRISTEL [facility] ([facility]) Inpatient Warfarin Consult HPI: Andrew Sifuentes is a 71 y.o. 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 Past Medical History: Diagnosis Date ED (erectile dysfunction) Hemorrhoids Hydrocephalus, adult (HCC) Kidney stone Neuropathy RN INVASIVE (ventriculoperitoneal) shunt status Patient is newly referred to the [facility] clinic for warfarin management. Pt was referred [...] PharmD IRVIN Consult Service is available daily [phone]. Please search for covering pharmacist name via [employer] or Groups --> Pharmacy --> Anti-Coagulation Consult Pharmacist (on 3rd page). If no response via Pitzive, please page [phone]. Department of Podiatry Attending Consult Note Reason for Consult: Wound care Requesting Physician: MD Shailesh CHIEF COMPLAINT: Foot wounds HISTORY OF PRESENT ILLNESS: The patient is a 71 y.o. male with b/l foot wounds. Patient is awake , but not answering questions. Past Medical History: Diagnosis Date ED (erectile dysfunction) Hemorrhoids Hydrocephalus, adult (HCC) Kidney stone Neuropathy RN INVASIVE (ventriculoperitoneal) shunt status Past Surgical History: Procedure [...] consulted. Will follow . Thank you. [facility] Respiratory Care Department Progress Note As [...] included. Hospitalist Progress Note 10/22/2021 6:33 AM [phone]: Please page me ([phone]) or perfect serve me for patient care issues. [phone]: Please page [facility] night Hospitalist for any issues. Subjective: Admit Date: 10/21/2021 PCP: MONIKA STALEY MD Room#: 146/1467 Admitting Synopsis: 71 y/o male presents from [...] consider MRI if concern Hydrocephalus - Revised RN INVASIVE shunt Interval History: No overnight issues. Denies [...] Intake/Output Summary (Last 24 hours) at 10/22/2021 0602 Last data filed at 10/21/2021 0928 Gross per 24 hour Intake 360 ml Output Net 360 ml Past Medical History: Diagnosis Date ED (erectile dysfunction) Hemorrhoids Hydrocephalus, adult (HCC) Kidney stone Neuropathy RN INVASIVE (ventriculoperitoneal) shunt status Medications: sodium chloride baclofen 10 mg Oral TID bumetanide 2 mg Oral Daily potassium chloride 20 mEq Oral Daily sodium chloride flush 5-40 mL IntraVENous 2 times per day enoxaparin 1 mg/kg SubCUTAneous BID ipratropium-albuterol 1 ampule Inhalation Q4H [place] LABS: CBC: Recent Labs 10/21/21 0210 10/22/21 [...] of Hospitalist Medicine Inpatient Medical Services PAGER: [phone] Images from the original note were not included. Hospitalist Progress Note 10/21/2021 5:31 PM [phone]: Please page me ([phone]) or perfect serve me for patient care issues. [phone]: Please page [facility] night Hospitalist for any issues. Subjective: Admit Date: 10/21/2021 PCP: MONIKA STALEY MD Room#: 277/7178 Admitting Synopsis: 71 y/o male presents from [...] Will need chronic OAC Hydrocephalus - Revised RN INVASIVE shunt Interval History: No overnight issues. Denies [...] Hemorrhoids Hydrocephalus, adult (HCC) Kidney stone Neuropathy RN INVASIVE (ventriculoperitoneal) shunt status Medications: sodium chloride baclofen [...] of Hospitalist Medicine Inpatient Medical Services PAGER: [phone] Family member Triny, sister to patient, called back to the hospital stating that she was returning a call from a provider. Her phone number is [phone] to speak with whomever was attempting to reach out to her. documented in this encounter [employer] Work Phone: 10-17-2021 Miscellaneous Notes Mr. Sifuentes missed his hospital stay follow-up appointment w. Dr. Lim today. Called to Reschedule. Could not get through. "Subscriber you have dialed not in service" - was the automated voice mail. Unable to leave VM. No other phone# available. Ramya Negro Chief Sales Officer [facility] documented in this encounter [facility] 08-19-2021 Note [facility] 08-19-2021 [facility] 08-18-2021 [facility] 08[facility]18-2021 [facility] 08-17-2021 [facility] 08-17-2021 [facility] 08-16-2021 [facility] 08-16-2021 Note HNO ID: [id number] Author: Katt Kelsey DO Service: Hospital Medicine Author Type: Physician Type: Plan of Care Filed: 08/16/2021 12:26 PM Note Text: Spoke with RN that line is a PICC. Katt Kelsey DO 08/16/2021 12:26 PM [facility] 08-16-2021 Note [facility] 08-16-2021 [facility] 08-15-2021 [facility] 08-15-2021 [facility] 08[facility]15-2021 [facility] 08-14-2021 Note [facility] 08-14-2021 Note [facility] 08-13-2021 Note [facility] 08-13-2021 Note [facility] 08-13-2021 Note [facility] 08-13-2021 Note HNO ID: [id number] Author: Ambar Note Service: ? Author Type: ? Type: Progress Notes Filed: 08/13/2021 3:10 AM Note Text: Epic Scheduled Downtime: 08/13/2021 1:08:47 AM to 08/13/2021 2:53:47 AM [facility] 08-12-2021 Note [facility] 08-12-2021 [facility] 08[facility]12-2021 [facility] 08-11-2021 [facility] 08-11-2021 [facility] 08[facility]11-2021 [facility] 08[facility]11-2021 [facility] 08-11-2021 [facility] 08[facility]11-2021 [facility] 08-10-2021 [facility] 08[facility]10-2021 [facility] 08-10-2021 [facility] 08-10-2021 Note [facility] 08-09-2021 Note HNO ID: [id number] Author: Shannon Brooks RN Service: ? Author Type: Registered Nurse Type: Nursing Progress Note Filed: 08/09/2021 7:33 PM Note Text: Report called to unit [facility] 08-09-2021 [facility] 08-09-2021 [facility] 08-09-2021 [facility] 08-08-2021 [facility] 08-08-2021 [facility] 08-08-2021 [facility] 08-07-2021 [facility] 08-07-2021 [facility] 08-07-2021 [facility] 08[facility]07-2021 [facility] 08-07-2021 Note [facility] 08-06-2021 Note [facility] 08[facility]06-2021 [facility] 08-06-2021 [facility] 08-05-2021 Note [facility] 08[facility]05-2021 [facility] 08-05-2021 [facility] 08-04-2021 Note [facility] 08[facility]04-2021 Note [facility] 08[facility]04-2021 [facility] 08-03-2021 Note [facility] 08[facility]03-2021 Note [facility] 08-03-2021 Note [facility] 08-02-2021 Note [facility] 08[facility]02-2021 Note [facility] 08-02-2021 Note [facility] 08-01-2021 Note [facility] 08-01-2021 Note [facility] 08[facility]01-2021 Note [facility] 08-01-2021 Note [facility] 07-31-2021 Note [facility] 07-31-2021 Note [facility] 07-30-2021 Note [facility] 07[facility]30-2021 Note [facility] 07[facility]30-2021 [facility] 07-29-2021 Note [facility] 07-29-2021 [facility] 07-29-2021 [facility] 07-28-2021 Note [facility] 07-28-2021 Note [facility] 07-28-2021 Note [facility] 07-27-2021 Note [facility] 07[facility]27-2021 Note [facility] 07-27-2021 Note [facility] 07-26-2021 Note [facility] 07-26-2021 Note [facility] 07-26-2021 Note [facility] 07[facility]26-2021 Note [facility] 07-26-2021 Note [facility] 07-25-2021 Note [facility] 07-25-2021 Note [facility] 07[facility]25-2021 Note [facility] 07-25-2021 Note [facility] 07-24-2021 Note [facility] 07[facility]24-2021 [facility] 07-24-2021 [facility] 07-23-2021 Note [facility] 07[facility]23-2021 Note [facility] 07-23-2021 Note [facility] 07[facility]23-2021 Note [facility] 07-23-2021 Note [facility] 07-22-2021 Note [facility] 07-22-2021 Note [facility] 07[facility]22-2021 Note [facility] 07-21-2021 Note [facility] 07[facility]21-2021 Note [facility] 07-21-2021 Note [facility] 07-21-2021 History of Past i [...] history of fever, elevated WBC, RP hematoma RN INVASIVE shunt tip grew anaerobic gram positive cocci 06/08/2021 PLAN: RN INVASIVE shunt tip sent to [facility] main, awaiting cx Continue [...] - following CSF studies; 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 for PARKING GARAGE MANAGER infection at this time - ID following- Continue antibiotics: Meropenem -CSF leak from EVD site, appreciate NSGY recs> stat repeat CTH on 06/07 d/t concern for CSF leak, cephalematoma, CTH unremarkable -Tolerating TF - SBT WTE - PICC line placed documented as of this encounter (statuses as of 10/17/2021) [facility]03-17-2022 [facility]03-16-2022 [facility]03-16-2022 [facility]03-16-2022 Note [facility]03-16-2022 [facility] 07-19-2021 [facility]03-15-2022 [facility]03-15-2022 [facility]03-14-2022 [facility]03-14-2022 [facility]03-13-2022 [facility]03-13-2022 [facility]03-12-2022 Note [facility]03-12-2022 [facility] 07-15-2021 [facility]03-11-2022 [facility]03-10-2022 [facility]03-10-2022 [facility]03-10-2022 [facility]03-09-2022 [facility]03-09-2022 [facility]03-09-2022 Note [facility]03-09-2022 [facility] 07-12-2021 [facility]03-08-2022 [facility]03-07-2022 [facility]03-07-2022 [facility]03-07-2022 [facility]03-07-2022 [facility]03-06-2022 [facility]03-06-2022 Note [facility]03-05-2022 [facility] 07-09-2021 [facility]03-05-2022 [facility]03-05-2022 [facility]03-05-2022 NoteHNO ID: [id number] Author: Lizette Valderrama RN Service: Nursing Author Type: Registered Nurse Type: Nursing Progress Note Filed: 07/09/2021 1:41 AM Note Text: Report called to [facility]03-04-2022 NoteHNO ID: [id number] Author: Lizette Valderrama RN Service: Nursing Author Type: Registered Nurse Type: Nursing Progress Note Filed: 07/08/2021 8:57 PM Note Text: [address]49 back to PACU [address] [place], [place] [id number] NoteHNO ID: [id number] Author: Sukhi Chery APRN.CNP Service: ? Author Type: Nurse Practitioner Type: Progress Notes Filed: 07/09/2021 6:46 PM Note Text: Connected Care Unit Progress Note Patient Name: Andrew Sifuentes Patient Facility: [facility] Admit Date 06/28/2021 Level of Care: Skilled [...] Dept Phone 07/21/2021 11:00 AM NICOLE LIM [phone] HPI: (Per Dr. Beltran) Andrew Sifuentes is being seen today for snf facility (SNF) admission AND management of weakness, tube feed, infected retroperitoneal infection and seizure. ? This is a 71 year old male who presents from [facility] with primary admitting diagnosis of Seizure, [...] CT brain concerning for hydrocephalus. Tip of RN INVASIVE shunt was found to be in the [...] slow to respond. Ordered to transfer to [facility] for evaluation of neurological and pulmonary [...] changes in co (more content not included)... [facility]03-04-2022 [facility]03-04-2022 [facility]03-02-2022 NoteHNO ID: [id number] Author: Sukhi Chery APRN.CNP Service: ? Author Type: Nurse Practitioner Type: Progress Notes Filed: 07/09/2021 6:20 PM Note Text: Connected Care Unit Progress Note Patient Name: Andrew Sifuentes Patient Facility: [facility] Admit Date 06/28/2021 Level of Care: Skilled [...] shunt - AANDOx2 and lethargic - Dr. Lmi with Neurosurgery Following - Focused neuro exams [...] Dept Phone 07/21/2021 11:00 AM NICOLE LIM [phone] HPI: (Per Dr. Beltran) Andrew Sifuentes is being seen today for snf facility (SNF) admission AND management of weakness, tube feed, infected retroperitoneal infection and seizure. ? This is a 71 year old male who presents from [facility] with primary admitting diagnosis of Seizure, [...] CT brain concerning for hydrocephalus. Tip of RN INVASIVE shunt was found to be in the [...] Pharynx: Oropharynx is clear. (more content not included)...[facility]02-28-2022 NoteHNO ID: [id number] Author: Sukhi Chery APRN.DELIV[facility] MGR Service: ? Author Type: Nurse Practitioner Type: Progress Notes Filed: 07/09/2021 6:07 PM Note Text: Connected Care Unit Progress Note Patient Name: Andrew Sifuentes Patient Facility: [facility] Admit Date 06/28/2021 Level of Care: Skilled [...] (Z98.2) History of brain shunt - Dr. Otvos with Neurosurgery Following - Focused neuro exams with encounters (A41.9, R65.20) Sepsis with acute organ dysfunction, due to unspecified organism, unspecified type, unspecified whether septic shock present (HCC) - Dr. Mckenzie with ID Following - Continue on Vancomycin; recent trough was 30 but nursing notes it was drawn by grocery specialist as vancomycin was being infused; reordered trough - PICC Line Intact - No fevers or chills per patient or staff (R53.81) Debility - Certify therapies - Maintain high falls risk precautions - pt/staff verbalize understanding validated via teach back - Monitor safety awareness Appointments for Next 60 Days Date Time Provider Location Dept Phone 07/21/2021 11:00 AM NICOLE LIM [phone] HPI: (Per Dr. Beltran) Andrew Sifuentes is being seen today for snf facility (SNF) admission AND management of weakness, tube feed, infected retroperitoneal infection and seizure. ? This is a 71 year old male who presents from [facility] with primary admitting diagnosis of Seizure, [...] CT brain concerning for hydrocephalus. Tip of RN INVASIVE shunt was found to be in the [...] to facility records. OBJECTIVE: Labs/diagnostics: 07/04/2021 Glucose=91 Zq=709 K=3.8 Wb=703 CO2=24 BUN=14 Creatinine=0.5 JBB=323 Ca=9.0 Protein,Total=6.7 Albumin=3.6 RusAodb=568 AST=15 ALT=21 Bilirubin,Totall=0.5 WBC=10.7 RBC=4.04 Hgb=10.9 Hct=35.3 Kbdoaylh=858 VancomycinTr (more content not included)...[facility]02-24-2022 NoteHNO ID: [id number] Author: Sukhi Chery APRN.VICTORIANO Service: ? Author Type: Nurse Practitioner Type: Progress Notes Filed: 07/09/2021 5:43 PM Note Text: Connected Care Unit Progress Note Patient Name: Andrew Sifuentes Patient Facility: [facility] Admit Date 06/28/2021 Level of Care: Skilled SNF Attending: Amy Beltran M.D. Service Date: 06/30/2021 Code Status: Full Code Chief Complaint: Evaluation regarding recent inpatient stay for seizures and encephalopathy. ASSESSMENT AND PLAN (G91.1) Obstructive hydrocephalus (HCC) (primary encounter diagnosis) (Z98.2) History of brain shunt - Dr. 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 Beltran) Andrew Sifuentes is being seen today for snf facility (SNF) admission AND management of weakness, tube feed, infected retroperitoneal infection and seizure. ? This is a 71 year old male who presents from [facility] with primary admitting diagnosis of Seizure, [...] CT brain concerning for hydrocephalus. Tip of RN INVASIVE shunt was found to be in the [...] to facility records. OBJECTIVE: Labs/diagnostics: 07/01/2021 Glucose=83 Hx=732 K=4.1 Xz=289 CO2=27 BUN=22 Creatinine=0.6 QJN=705 Ca=8.7 WBC=10.8 RBC=3.40 Hgb=9.3 Hct=29.9 Smmdjmcw=201 Vital Signs: BP 128/80 Pulse 77 Temp 36.7 ?C (98 ?F) Resp 20 Ht 182.9 cm (6') Wt 113 kg (249 lb 3.2 oz) SpO2 96% BMI 33.80 kg/m? Physical Exam: Physical Exam Vitals reviewed. Constitutional: General: He is not in acute distress. (more content not included)...[facility]02-22-2022 [facility]02-22-2022 [facility]02-21-2022 [facility]02-21-2022 Note [facility]02[facility]20-2022 [facility] 06-26-2021 [facility]02-19-2022 [facility]02-19-2022 [facility]02-18-2022 [facility]02[facility]18-2022 [facility]02-18-2022 [facility]02-17-2022 [facility]02-17-2022 Note [facility]02-17-2022 [facility] 06-22-2021 NoteHNO ID: [id number] Author: Xiomy England RN Service: Nursing Author Type: Registered Nurse Type: Nursing Progress Note Filed: 06/22/2021 7:22 PM Note Text: RT contacted as pt has wheezing auscultated and same auditory. For prn Treatment.[facility]02-16-2022 [facility]02-16-2022 [facility]02-16-2022 [facility]02-16-2022 [facility]02[facility]16-2022 [facility]02[facility]15-2022 [facility]02-15-2022 Note [facility]02-15-2022 [facility] 06[facility]21-2021 [facility]02-14-2022 [facility]02[facility]14-2022 [facility]02-14-2022 [facility]02[facility]14-2022 [facility]02[facility]14-2022 [facility]02-13-2022 [facility]02-13-2022 Note [facility]02-13-2022 [facility] 06[facility]19-2021 [facility]02-13-2022 [facility]02-12-2022 [facility]02[facility]12-2022 [facility]02[facility]12-2022 [facility]02[facility]12-2022 [facility]02-12-2022 [facility]02-12-2022 Note [facility]02-12-2022 NoteHNO ID: [id number] Author: Interface Note Service: ? Author Type: ? Type: Progress Notes Filed: 06/18/2021 3:10 AM Note Text: Epic Scheduled Downtime: 06/18/2021 1:00:00 AM to 06/18/2021 2:27:00 [facility]02[facility]11[facility]2022 Note [facility]02-11-2022 [facility] 06-17-2021 [facility]02-11-2022 [facility]02[facility]11-2022 [facility]02-10-2022 [facility]02-10-2022 [facility]02-10-2022 [facility]02-10-2022 [facility]02-10-2022 Note [facility]02-10-2022 [facility] 06-15-2021 [facility]02-09-2022 NoteHNO ID: [id number] Author: Lamonte Kline DO Service: Neurology ICU Author Type: Resident Type: Plan of Care Filed: 06/15/2021 6:21 PM Note Text: Patient's daughter Melissa updated on plan of care and critical condition, all questions answered.[facility]02-09-2022 [facility]02-09-2022 [facility]02-09-2022 [facility]02[facility]09-2022 [facility]02[facility]09-2022 Note [facility]02-09-2022 [facility] 06[facility]15-2021 [facility]02-08-2022 [facility]02[facility]08-2022 [facility]02-08-2022 [facility]02-08-2022 [facility]02-07-2022 [facility]02-07-2022 [facility]02-07-2022 Note [facility]02-07-2022 [facility] 06-12-2021 [facility]02-06-2022 [facility]02-06-2022 [facility]02-05-2022 [facility]02[facility]05-2022 [facility]02-04-2022 [facility]02[facility]04-2022 [facility]02-04-2022 Note [facility]02-04-2022 [facility] 06-09-2021 [facility]02-03-2022 [facility]02-03-2022 [facility]02-03-2022 [facility]02-02-2022 [facility]02-02-2022 NoteHNO ID: [id number] Author: Luis Diaz RN Service: ? Author Type: Registered Nurse Type: Nursing Progress Note Filed: 06/08/2021 9:23 AM Note Text: Patient off the floor to OR at this time.[facility]02-02-2022 [facility]02-02-2022 [facility] 06-08-2021 NoteHNO ID: [id number] Author: Eloise Samuel RN Service: ? Author Type: Registered Nurse Type: Nursing Progress Note Filed: 06/08/2021 12:46 AM Note Text: Dr. Brito notified of changes throughout shift. No new orders [facility] 06-07-2021 NoteHNO ID: [id number] Author: Eloise Samuel RN Service: ? Author Type: Registered Nurse Type: Nursing Progress Note Filed: 06/07/2021 8:01 PM Note Text: Neuro surg DELIVERY MGR notified of downward deviation of pupils. No new orders at this time.[facility]02-01-2022 [facility]02-01-2022 [facility]02-01-2022 [facility]02[facility]01-2022 [facility]01-31-2022 [facility]01-31-2022 [facility]01-31-2022 Note [facility]01-31-2022 [facility] 06-05-2021 [facility]01-30-2022 [facility]01-30-2022 [facility]01-29-2022 [facility]01-29-2022 NoteHNO ID: [id number] Author: Jermaine Miller PA-C Service: Neurosurgery Author Type: Physician Microwave Radio Technician Type: Plan of Care Filed: 06/04/2021 1:59 PM Note Text: Discussed with Dr. Charles CT brain results. At this time, continue with EVD at 5 [facility]01-29-2022 [facility] 06-04-2021 [facility]01-28-2022 [facility]01-28-2022 NoteHNO ID: [id number] Author: Mauricio Frank DO Service: Neurology ICU Author Type: Physician Type: Plan of Care Filed: 06/03/2021 2:38 PM Note Text: I spoke with Melissa and updated her over the phone. [facility]01-28-2022 [facility]01-27-2022 [facility]01-27-2022 [facility]01-27-2022 Note [facility]01-26-2022 [facility] 06-01-2021 [facility]01-26-2022 [facility]01-26-2022 [facility]01-26-2022 [facility]01-25-2022 [facility]01[facility]25-2022 [facility]01-25-2022 [facility]01-25-2022 Note [facility] Diagnosis Leg swelling- Primary Swelling of limb Acute deep vein thrombosis (DVT) of proximal vein of lower extremity, unspecified laterality (HCC) DVT, lower extremity, recurrent, unspecified laterality (HCC) Moderate malnutrition (HCC) Malnutrition of moderate degree History of seizures Personal history of other disorders of nervous system and sense organs [facility] Work Phone: Evaluation noteNo assessment information available [facility] Work Phone: Evaluation note* Diagnosis Other fatigue- Primary [facility] Work Phone: Evaluation note* Diagnosis Heel ulceration, left, with unspecified severity (HCC)- Primary [facility] Work Phone: Evaluation note* Diagnosis Fall, initial encounter- Primary Anticoagulated Encounter for long-term (current) use of anticoagulants [facility] Work Phone: Evaluation note* Diagnosis Left flank pain- Primary Abdominal pain, unspecified site Calculus of ureter Disease of prostate Unspecified disorder of prostate BPH with urinary obstruction Hypertrophy of prostate with urinary obstruction and other lower urinary tract symptoms (LUTS) [facility] Diagnosis Left flank pain Abdominal pain, unspecified site Calculus of ureter [facility] Diagnosis Left flank pain- Primary Abdominal pain, unspecified site BPH with urinary obstruction Hypertrophy of prostate with urinary obstruction and other lower urinary tract symptoms (LUTS) History of kidney stones [facility] Name Dates Details Instructions not documented [id number] Work Phone: Instructions* Name Dates Details Instructions not documented [id number] [place] Work Phone: Reason for referral (narrative)No reason for referral information [facility] Work Phone: Advance Directives No Advanced Directives Records FoundDocuments on File Type Date Recorded Patient Third Helper Expl anation Advance Directives and Living Will Power of Tube Closing Machine Operator Documents on File Type Date Recorded Patient Third Helper Expl anation Advance Directive(s) 06/02/2021 2:45 PM [...] Maker Relationship: 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 Adult Children (healthcare sales representative) Documents on File Type Date Recorded Patient Third Helper Expl anation ACP-Advance Directive ACP-Power of Tube Closing Machine Operator Latest Code Status on File Code Status Date Activated Date Inactivated Comments Full Code 10/21/2021 4:09 AM Healthcare Agents on File Name Relationship Healthcare Agent Relationshi p Communication Melissa Gurpreet Child Primary Decision Maker deann Gurpreet Child Secondary Decision Maker Documents on File Type Date Recorded Patient Third Helper Expl anation ACP-Advance Directive ACP-Power of Tube Closing Machine Operator ACP-Do Not Resuscitate 11/01/2021 7:03 AM Latest Code Status on File Code Status Date Activated Date Inactivated Comments Full Code 10/21/2021 4:09 AM 10/29/2021 7:25 PM Healthcare Agents on File Name Relationship Healthcare Agent Relationshi p Communication Melissa Gurpreet Child Primary Decision Maker deann Gurpreet Child Secondary Decision Maker Documents on File Type Date Recorded Patient Third Helper Expl anation ACP-Do Not Resuscitate 11/03/2021 10:15 AM ACP-Do Not Resuscitate 11/01/2021 7:03 AM Healthcare Agents on File Name Relationship Healthcare Agent Relationshi p Communication Melissa Gurpreet Child Primary Decision Maker deann Gurpreet Child Secondary Decision Maker Documents on File Type Date Recorded Patient Third Helper Expl anation ACP-Do Not Resuscitate 11/03/2021 10:15 [...] Documents on File Type Date Recorded Patient Third Helper Expl anation DNR (Do Not Resuscitate) 10/31/2021 DNR (Do Not Resuscitate) 10/21/2021 Documents on File Type Date Recorded Patient Third Helper Expl anation DNR (Do Not Resuscitate) 10/31/2021 [...] WORK LABWORK Chief Complaint LAB WORK LABWORK MCC LAB WORK MCC LABWORK Chief Complaint LAB WORK LABWORK MCC LAB WORK MCC LABWORK LABWORK LABWORK MCC LAB WORK MCC LABWORK MCC LAB WORK LABWORK MCC LAB WORK LABWORK MCC LABWORK Chief Complaint LAB WORK LABWORK MCC LAB WORK MCC LABWORK LABWORK LABWORK MCC LAB WORK MCC LABWORK MCC LAB WORK LABWORK MCC LAB WORK LABWORK MCC LABWORK MCC LABWORK LABWORK Chief Complaint LAB WORK LABWORK MCC LAB WORK MCC LABWORK LABWORK LABWORK MCC LAB WORK MCC LABWORK MCC LAB WORK LABWORK MCC LAB WORK LABWORK MCC LABWORK MCC LABWORK LABWORK MCC LAB WORK Chief Complaint LABWORK MCC LAB WORK MCC LABWORK LABWORK LABWORK MCC LAB WORK MCC LABWORK MCC LAB WORK LABWORK MCC LAB WORK LABWORK MCC LABWORK MCC LABWORK LABWORK LABWORK MCC LAB WORK Chief Complaint LABWORK MCC LAB WORK MCC LABWORK LABWORK LABWORK MCC LAB WORK MCC LABWORK MCC LAB WORK LABWORK MCC LAB WORK LABWORK MCC LABWORK MCC LABWORK LABWORK LABWORK MCC LAB WORK LABWORK MCC LABWORK MCC LAB WORK MCC LABWORK Chief Complaint MCC LAB WOR K MCC LABWORK LABWORK LABWORK MCC LAB WORK MCC LABWORK MCC LAB WORK LABWORK MCC LAB WORK LABWORK MCC LABWORK MCC LABWORK LABWORK LABWORK MCC LAB WORK LABWORK MCC LABWORK MCC LAB WORK MCC LABWORK MCC LAB WORK Chief Complaint MCC LABWORK LABWORK LABWORK MCC LAB WORK MCC LABWORK MCC LAB WORK LABWORK MCC LAB WORK LABWORK MCC LABWORK MCC LABWORK LABWORK LABWORK MCC LAB WORK LABWORK MCC LABWORK MCC LAB WORK MCC LABWORK LABWORK MCC LAB WORK Chief Complaint MCC LAB WOR K MCC LABWORK MCC LAB WORK LABWORK MCC LAB WORK LABWORK MCC LABWORK MCC LABWORK LABWORK LABWORK MCC LAB WORK LABWORK MCC LABWORK MCC LAB WORK MCC LABWORK LABWORK LABWORK MCC LAB WORK MCC PATIENT MCC LABWORK MCC LABWORK Chief Complaint LABWORK MCC LAB WORK LABWORK MCC LABWORK MCC LABWORK LABWORK LABWORK MCC LAB WORK LABWORK MCC LABWORK MCC LAB WORK MCC LABWORK LABWORK LABWORK MCC LAB WORK MCC PATIENT MCC LABWORK MCC LABWORK MCC LAB WORK Chief Complaint LABWORK MCC LABWORK MCC LABWORK LABWORK LABWORK MCC LAB WORK LABWORK MCC LABWORK MCC LAB WORK MCC LABWORK LABWORK LABWORK MCC LAB WORK MCC PATIENT MCC LABWORK MCC LABWORK MCC LAB WORK MCC LAB WORK MCC LAB WORK Chief Complaint LABWORK LABWORK MCC LAB WORK MCC PATIENT MCC LABWORK MCC LABWORK MCC LAB WORK MCC LAB WORK MCC LAB WORK MCC LABWORK MCC LABWORK LABWORK MCC LAB WORK LABWORK Chief Complaint MCC LAB WOR K MCC PATIENT MCC LABWORK MCC LABWORK MCC LAB WORK MCC LAB WORK MCC LAB WORK MCC LABWORK MCC LABWORK LABWORK MCC LAB WORK LABWORK MCC LABWORK Chief Complaint MCC PATIENT MCC LABWORK MCC LABWORK MCC LAB WORK MCC LAB WORK MCC LAB WORK MCC LABWORK MCC LABWORK LABWORK MCC LAB WORK LABWORK MCC LABWORK MCC LABWORK Chief Complaint MCC LABWORK MCC LAB WORK MCC LAB WORK MCC LAB WORK MCC LABWORK MCC LABWORK LABWORK MCC LAB WORK LABWORK MCC LABWORK MCC LABWORK MCC LABWORK Chief Complaint MCC LABWORK MCC LAB WORK MCC LAB WORK MCC LAB WORK MCC LABWORK MCC LABWORK LABWORK MCC LAB WORK LABWORK MCC LABWORK MCC LABWORK MCC LABWORK MCC LABWORK Chief Complaint MCC LABWORK LABWORK MCC LAB WORK LABWORK MCC LABWORK MCC LABWORK MCC LABWORK MCC LABWORK MCC LABWORK LABWORK MCC LABWORK Chief Complaint LABWORK MCC LAB WORK LABWORK MCC LABWORK MCC LABWORK MCC LABWORK MCC LABWORK MCC LABWORK LABWORK LABWORK MCC LABWORK MCC LAB WORK MCC LABWORK MCC LAB WORK Chief Complaint LABWORK MCC LAB WORK LABWORK MCC LABWORK MCC LABWORK MCC LABWORK MCC LABWORK MCC LABWORK LABWORK LABWORK MCC LABWORK MCC LAB WORK MCC LABWORK MCC LAB WORK MCC LABWORK Chief Complaint LABWORK MCC LAB WORK LABWORK MCC LABWORK MCC LABWORK MCC LABWORK MCC LABWORK MCC LABWORK LABWORK LABWORK MCC LABWORK MCC LAB WORK MCC LABWORK MCC LAB WORK MCC LABWORK LABWORK Chief Complaint MCC LABWORK MCC LABWORK MCC LABWORK MCC LABWORK MCC LABWORK LABWORK LABWORK MCC LABWORK MCC LAB WORK MCC LABWORK MCC LAB WORK MCC LABWORK LABWORK MCC LABWORK Chief Complaint MCC LABWORK MCC LABWORK MCC LABWORK MCC LABWORK MCC LABWORK LABWORK LABWORK MCC LABWORK MCC LAB WORK MCC LABWORK MCC LAB WORK MCC LABWORK LABWORK MCC LABWORK LABWORK Chief Complaint MCC LABWORK LABWORK LABWORK MCC LABWORK MCC LAB WORK MCC LABWORK MCC LAB WORK MCC LABWORK LABWORK MCC LABWORK LABWORK MCC LAB WORK MCC LAB WORK MCC LABWORK Chief Complaint LABWORK MCC LABWORK LABWORK MCC LAB WORK MCC LAB WORK MCC LABWORK MCC LABWORK MCC LAB WORK MCC LAB WORK MCC LAB WORK LABWORK MCC LABWORK Chief Complaint MCC LAB WOR K MCC LAB WORK MCC LABWORK MCC LABWORK MCC LAB WORK MCC LAB WORK MCC LAB WORK LABWORK MCC LABWORK LABWORK MCC LAB WORK MCC LAB WORK Chief Complaint MCC LAB WOR K MCC LABWORK MCC LABWORK MCC LAB WORK MCC LAB WORK MCC LAB WORK LABWORK MCC LABWORK LABWORK MCC LAB WORK MCC LAB WORK Chief Complaint MCC LABWORK MCC LABWORK MCC LAB WORK MCC LAB WORK MCC LAB WORK LABWORK MCC LABWORK LABWORK MCC LAB WORK MCC LAB WORK MCC LABWORK LABWORK LABWORK Chief Complaint MCC LAB WOR K MCC LAB WORK MCC LAB WORK LABWORK MCC LABWORK LABWORK MCC LAB WORK MCC LAB WORK MCC LABWORK LABWORK LABWORK LABWORK LABWORK LABWORK Chief Complaint MCC LAB WOR K LABWORK MCC LABWORK LABWORK MCC LAB WORK MCC LAB WORK MCC LABWORK LABWORK LABWORK LABWORK LABWORK MCC LABWORK MCC LAB WORK LABWORK MCC LAB WORK MCC LAB WORK Chief Complaint MCC LAB WOR K LABWORK MCC LABWORK LABWORK MCC LAB WORK MCC LAB WORK MCC LABWORK LABWORK LABWORK LABWORK LABWORK MCC LABWORK MCC LAB WORK LABWORK MCC LAB WORK MCC LAB WORK MCC LABWORK Chief Complaint MCC LAB WOR K MCC LAB WORK MCC LABWORK LABWORK LABWORK LABWORK LABWORK MCC LABWORK MCC LAB WORK LABWORK MCC LAB WORK MCC LAB WORK MCC LABWORK NUSING HOME LAB WORK Chief Complaint MCC LAB WOR K MCC LABWORK LABWORK LABWORK LABWORK LABWORK MCC LABWORK MCC LAB WORK LABWORK MCC LAB WORK MCC LAB WORK MCC LABWORK NUSING HOME LAB WORK LABWORK Chief Complaint MCC LAB WOR K MCC LABWORK LABWORK LABWORK LABWORK LABWORK MCC LABWORK MCC LAB WORK LABWORK MCC LAB WORK MCC LAB WORK MCC LABWORK NUSING HOME LAB WORK MCC LABWORK LABWORK Chief Complaint LABWORK MCC LAB WORK MCC LAB WORK MCC LABWORK NUSING HOME LAB WORK MCC LABWORK LABWORK MCC LABWORK MCC LAB WORK LABWORK LABWORK Chief Complaint NUSING HOME LAB WORK MCC LABWORK LABWORK MCC LABWORK MCC LAB WORK LABWORK MCC LAB WORK LABWORK LABWORK Chief Complaint NUSING HOME LAB WORK MCC LABWORK LABWORK MCC LABWORK MCC LAB WORK LABWORK MCC LAB WORK LABWORK MCC LAB WORK LABWORK Chief Complaint MCC LABWORK LABWORK MCC LABWORK MCC LAB WORK LABWORK MCC LAB WORK LABWORK MCC LAB WORK LABWORK LABWORK Chief Complaint MCC LABWORK LABWORK MCC LABWORK MCC LAB WORK LABWORK MCC LAB WORK LABWORK MCC LAB WORK LABWORK LABWORK LABWORK Chief Complaint MCC LABWORK LABWORK MCC LABWORK MCC LAB WORK LABWORK MCC LAB WORK LABWORK MCC LAB WORK LABWORK LABWORK LABWORK LABWORK Chief Complaint MCC LABWORK LABWORK MCC LABWORK MCC LAB WORK LABWORK MCC LAB WORK LABWORK MCC LAB WORK LABWORK LABWORK MCC LAB WORK LABWORK LABWORK LABWORK Chief Complaint LABWORK MCC LABWORK MCC LAB WORK LABWORK MCC LAB WORK LABWORK MCC LAB WORK LABWORK LABWORK MCC LAB WORK LABWORK LABWORK LABWORK LABWORK LABWORK LABWORK LABWORK Chief Complaint MCC LABWORK MCC LAB WORK LABWORK MCC LAB WORK LABWORK MCC LAB WORK LABWORK LABWORK MCC LAB WORK LABWORK LABWORK LABWORK LABWORK LABWORK LABWORK LABWORK LABWORK Chief Complaint LABWORK MCC LAB WORK LABWORK MCC LAB WORK LABWORK LABWORK MCC LAB WORK LABWORK LABWORK LABWORK LABWORK LABWORK LABWORK LABWORK LABWORK LABWORK Chief Complaint MCC LABWORK LABWORK LABWORK LABWORK LABWORK MCC LABWORK MCC LAB WORK LABWORK MCC LAB WORK MCC LAB WORK MCC LABWORK NUSING HOME LAB WORK MCC LABWORK LABWORK MCC LABWORK MCC LAB WORK Chief Complaint Admit Date MCC LAB WORK March 13, 2024 5:00am LABWORK March 14, 2024 5 :00am MCC LAB WORK March 17 4 5:00am MCC LAB WORK March 18 5:00am MCC LAB WORK March 19 4:00am MCC LAB WORK March 20 5:00am MCC LAB WORK March 24 5:00am MCC LAB WORK March 27 5:00am LABWORK March 31, 2024 5:00am MCC LAB WORK April 04 5:00am LABWORK April 07, 2024 5 :00am MCC LAB WORK April 10, 2024 5:00am MCC LAB WORK April 14, 2024 5:00am MCC LAB WORK April 17 5:00am LABWORK April 21, 2024 5:00am MCC LAB WORK April 24 4:00am LABWORK April 28, 2024 5:00am MCC LAB WORK May 01 4 4:00am MCC LAB WORK May 05 5:00am MCC LAB WORK May 08, 2024 5:00am MCC LAB WORK May 09, 2024 4:00am LABWORK May 12, 2024 5: 00am MCC LAB WORK May 15, 2024 5:00am MCC LAB WORK May 19, 2024 4:00am MCC LAB WORK May 20, 2024 5:00am MCC LAB WORK May 22, 2024 5:00am LABWORK May 26, 2024 5 :00am MCC LAB WORK May 29, 2024 5:00am MCC LAB WORK June 02, 2024 5:00am MCC LAB WORK June 05, 2024 5:00am LABWORK June 09, 2024 5 :00am MCC LAB WORK June 12, 2024 5:00am MCC LAB WORK June 16 5:00am MCC LAB WORK June 19 5:00am LABWORK June 23, 2024 5:00am MCC LAB WORK June 26 5:00am MCC LAB WORK June 30 5:00am Chief Complaint Admit Date LABWORK April 07, 2024 5 :00am MCC LAB WORK April 10, 2024 5:00am MCC LAB WORK April 14, 2024 5:00am MCC LAB WORK April 17 5:00am LABWORK April 21, 2024 5:00am MCC LAB WORK April 24 4:00am LABWORK April 28, 2024 5:00am MCC LAB WORK May 01 4:00am MCC LAB WORK May 05 5:00am MCC LAB WORK May 08, 2024 5:00am MCC LAB WORK May 09, 2024 4:00am LABWORK May 12, 2024 5: 00am MCC LAB WORK May 15, 2024 5:00am MCC LAB WORK May 19, 2024 4:00am MCC LAB WORK May 20, 2024 5:00am MCC LAB WORK May 22, 2024 5:00am LABWORK May 26, 2024 5 :00am MCC LAB WORK May 29, 2024 5:00am MCC LAB WORK June 02, 2024 5:00am MCC LAB WORK June 05, 2024 5:00am LABWORK June 09, 2024 5 :00am MCC LAB WORK June 12, 2024 5:00am MCC LAB WORK June 16 5:00am MCC LAB WORK June 19 5:00am LABWORK June 23, 2024 5:00am MCC LAB WORK June 26 5:00am MCC LAB WORK June 30 5:00am MCC LAB WORK July 03 5:00am MCC LAB WORK July 07, 2024 4: 00am LABWORK July 11, 2024 5:00 am LABWORK July 14, 2024 5:0 0am MCC LAB WORK July 17, 2024 4 :00am MCC LAB WORK July 24, 2024 4 :00am Chief Complaint Admit Date MCC LAB WORK April 14, 2024 5:00am MCC LAB WORK April 17 5:00am LABWORK April 21, 2024 5:00am MCC LAB WORK April 24 4:00am LABWORK April 28, 2024 5:00am MCC LAB WORK May 01 4:00am MCC LAB WORK May 05 5:00am MCC LAB WORK May 08, 2024 5:00am MCC LAB WORK May 09, 2024 4:00am LABWORK May 12, 2024 5: 00am MCC LAB WORK May 15, 2024 5:00am MCC LAB WORK May 19, 2024 4:00am MCC LAB WORK May 20, 2024 5:00am MCC LAB WORK May 22, 2024 5:00am LABWORK May 26, 2024 5 :00am MCC LAB WORK May 29, 2024 5:00am MCC LAB WORK June 02, 2024 5:00am MCC LAB WORK June 05, 2024 5:00am LABWORK June 09, 2024 5 :00am MCC LAB WORK June 12, 2024 5:00am MCC LAB WORK June 16 5:00am MCC LAB WORK June 19 5:00am LABWORK June 23, 2024 5:00am MCC LAB WORK June 26 5:00am MCC LAB WORK June 30 5:00am MCC LAB WORK July 03 5:00am MCC LAB WORK July 07, 2024 4: 00am LABWORK July 11, 2024 5:00 am LABWORK July 14, 2024 5:0 0am MCC LAB WORK July 17, 2024 4 :00am MCC LAB WORK July 24, 2024 4 :00am LABWORK July 25, 2024 5:0 0am Chief Complaint Admit Date MCC LAB WORK April 14, 2024 5:00am MCC LAB WORK April 17 5:00am LABWORK April 21, 2024 5:00am MCC LAB WORK April 24 4:00am LABWORK April 28, 2024 5:00am MCC LAB WORK May 01 4:00am MCC LAB WORK May 05 5:00am MCC LAB WORK May 08, 2024 5:00am MCC LAB WORK May 09, 2024 4:00am LABWORK May 12, 2024 5: 00am MCC LAB WORK May 15, 2024 5:00am MCC LAB WORK May 19, 2024 4:00am MCC LAB WORK May 20, 2024 5:00am MCC LAB WORK May 22, 2024 5:00am LABWORK May 26, 2024 5 :00am MCC LAB WORK May 29, 2024 5:00am MCC LAB WORK June 02, 2024 5:00am MCC LAB WORK June 05, 2024 5:00am LABWORK June 09, 2024 5 :00am MCC LAB WORK June 12, 2024 5:00am MCC LAB WORK June 16 5:00am MCC LAB WORK June 19 5:00am LABWORK June 23, 2024 5:00am MCC LAB WORK June 26 5:00am MCC LAB WORK June 30 5:00am MCC LAB WORK July 03 5:00am MCC LAB WORK July 07, 2024 4: 00am LABWORK July 11, 2024 5:00 am LABWORK July 14, 2024 5:0 0am MCC LAB WORK July 17, 2024 4 :00am MCC LAB WORK July 21, 2024 5 :00am MCC LAB WORK July 24, 2024 4 :00am LABWORK July 25, 2024 5:0 0am MCC LAB WORK July 31, 2024 4 :00am Chief Complaint Admit Date MCC LAB WORK April 17 5:00am LABWORK April 21, 2024 5:00am MCC LAB WORK April 24 4:00am LABWORK April 28, 2024 5:00am MCC LAB WORK May 01 4:00am MCC LAB WORK May 05 5:00am MCC LAB WORK May 08, 2024 5:00am MCC LAB WORK May 09, 2024 4:00am LABWORK May 12, 2024 5: 00am MCC LAB WORK May 15, 2024 5:00am MCC LAB WORK May 19, 2024 4:00am MCC LAB WORK May 20, 2024 5:00am MCC LAB WORK May 22, 2024 5:00am LABWORK May 26, 2024 5 :00am MCC LAB WORK May 29, 2024 5:00am MCC LAB WORK June 02, 2024 5:00am MCC LAB WORK June 05, 2024 5:00am LABWORK June 09, 2024 5 :00am MCC LAB WORK June 12, 2024 5:00am MCC LAB WORK June 16 5:00am MCC LAB WORK June 19 5:00am LABWORK June 23, 2024 5:00am MCC LAB WORK June 26 5:00am MCC LAB WORK June 30 5:00am MCC LAB WORK July 03 5:00am MCC LAB WORK July 07, 2024 4: 00am LABWORK July 11, 2024 5:00 am LABWORK July 14, 2024 5:0 0am MCC LAB WORK July 17, 2024 4 :00am MCC LAB WORK July 21, 2024 5 :00am MCC LAB WORK July 24, 2024 4 :00am LABWORK July 25, 2024 5:0 0am MCC LAB WORK July 28, 2024 5 :00am MCC LAB WORK July 31, 2024 4 :00am Chief Complaint Admit Date MCC LAB WORK April 24 4:00am LABWORK April 28, 2024 5:00am MCC LAB WORK May 01 4:00am MCC LAB WORK May 05 5:00am MCC LAB WORK May 08, 2024 5:00am MCC LAB WORK May 09, 2024 4:00am LABWORK May 12, 2024 5: 00am MCC LAB WORK May 15, 2024 5:00am MCC LAB WORK May 19, 2024 4:00am MCC LAB WORK May 20, 2024 5:00am MCC LAB WORK May 22, 2024 5:00am LABWORK May 26, 2024 5 :00am MCC LAB WORK May 29, 2024 5:00am MCC LAB WORK June 02, 2024 5:00am MCC LAB WORK June 05, 2024 5:00am LABWORK June 09, 2024 5 :00am MCC LAB WORK June 12, 2024 5:00am MCC LAB WORK June 16 5:00am MCC LAB WORK June 19 5:00am LABWORK June 23, 2024 5:00am MCC LAB WORK June 26 5:00am MCC LAB WORK June 30 5:00am MCC LAB WORK July 03 5:00am MCC LAB WORK July 07, 2024 4: 00am LABWORK July 11, 2024 5:00 am LABWORK July 14, 2024 5:0 0am MCC LAB WORK July 17, 2024 4 :00am MCC LAB WORK July 21, 2024 5 :00am MCC LAB WORK July 24, 2024 4 :00am LABWORK July 25, 2024 5:0 0am MCC LAB WORK July 28, 2024 5 :00am MCC LAB WORK July 31, 2024 4 :00am LABWORK August 04, 2024 5:0 0am Chief Complaint Admit Date MCC LAB WORK May 15, 2024 5:00am MCC LAB WORK May 19, 2024 4:00am MCC LAB WORK May 20, 2024 5:00am MCC LAB WORK May 22, 2024 5:00am LABWORK May 26, 2024 5 :00am MCC LAB WORK May 29, 2024 5:00am MCC LAB WORK June 02, 2024 5:00am MCC LAB WORK June 05, 2024 5:00am LABWORK June 09, 2024 5 :00am MCC LAB WORK June 12, 2024 5:00am MCC LAB WORK June 16 5:00am MCC LAB WORK June 19 5:00am LABWORK June 23, 2024 5:00am MCC LAB WORK June 26 5:00am MCC LAB WORK June 30 5:00am MCC LAB WORK July 03 5:00am MCC LAB WORK July 07, 2024 4: 00am LABWORK July 11, 2024 5:00 am LABWORK July 14, 2024 5:0 0am MCC LAB WORK July 17, 2024 4 :00am MCC LAB WORK July 21, 2024 5 :00am MCC LAB WORK July 24, 2024 4 :00am LABWORK July 25, 2024 5:0 0am MCC LAB WORK July 28, 2024 5 :00am MCC LAB WORK July 31, 2024 4 :00am LABWORK August 04, 2024 5:0 0am LABWORK August 07, 2024 5:00 am MCC LAB WORK August 11, 2024 5: 00am MCC LAB WORK August 14, 2024 5 :00am MCC LAB WORK August 18, 2024 5 :00am Chief Complaint Admit Date MCC LAB WORK May 20, 2024 5:00am MCC LAB WORK May 22, 2024 5:00am LABWORK May 26, 2024 5 :00am MCC LAB WORK May 29, 2024 5:00am MCC LAB WORK June 02, 2024 5:00am MCC LAB WORK June 05, 2024 5:00am LABWORK June 09, 2024 5 :00am MCC LAB WORK June 12, 2024 5:00am MCC LAB WORK June 16 5:00am MCC LAB WORK June 19 5:00am LABWORK June 23, 2024 5:00am MCC LAB WORK June 26 5:00am MCC LAB WORK June 30 5:00am MCC LAB WORK July 03 5:00am MCC LAB WORK July 07, 2024 4: 00am LABWORK July 11, 2024 5:00 am LABWORK July 14, 2024 5:0 0am MCC LAB WORK July 17, 2024 4 :00am MCC LAB WORK July 21, 2024 5 :00am MCC LAB WORK July 24, 2024 4 :00am LABWORK July 25, 2024 5:0 0am MCC LAB WORK July 28, 2024 5 :00am MCC LAB WORK July 31, 2024 4 :00am LABWORK August 04, 2024 5:0 0am LABWORK August 07, 2024 5:00 am MCC LAB WORK August 11, 2024 5: 00am MCC LAB WORK August 14, 2024 5 :00am MCC LAB WORK August 18, 2024 5 :00am LABWORK August 28, 2024 5:0 0am Chief Complaint Admit Date MCC LAB WORK May 22, 2024 5:00am LABWORK May 26, 2024 5 :00am MCC LAB WORK May 29, 2024 5:00am MCC LAB WORK June 02, 2024 5:00am MCC LAB WORK June 05, 2024 5:00am LABWORK June 09, 2024 5 :00am MCC LAB WORK June 12, 2024 5:00am MCC LAB WORK June 16 5:00am MCC LAB WORK June 19 5:00am LABWORK June 23, 2024 5:00am MCC LAB WORK June 26 5:00am MCC LAB WORK June 30 5:00am MCC LAB WORK July 03 5:00am MCC LAB WORK July 07, 2024 4: 00am LABWORK July 11, 2024 5:00 am LABWORK July 14, 2024 5:0 0am MCC LAB WORK July 17, 2024 4 :00am MCC LAB WORK July 21, 2024 5 :00am MCC LAB WORK July 24, 2024 4 :00am LABWORK July 25, 2024 5:0 0am MCC LAB WORK July 28, 2024 5 :00am MCC LAB WORK July 31, 2024 4 :00am LABWORK August 04, 2024 5:0 0am LABWORK August 07, 2024 5:00 am MCC LAB WORK August 11, 2024 5: 00am MCC LAB WORK August 14, 2024 5 :00am MCC LAB WORK August 18, 2024 5 :00am MCC LAB WORK August 21, 2024 5 :00am LABWORK August 28, 2024 5:0 0am LABWORK September 01, 2024 5:0 0am Chief Complaint Admit Date MCC LAB WORK June 05, 2024 5:00am LABWORK June 09, 2024 5 :00am MCC LAB WORK June 12, 2024 5:00am MCC LAB WORK June 16 5:00am MCC LAB WORK June 19 5:00am LABWORK June 23, 2024 5:00am MCC LAB WORK June 26 5:00am MCC LAB WORK June 30 5:00am MCC LAB WORK July 03 5:00am MCC LAB WORK July 07, 2024 4: 00am LABWORK July 11, 2024 5:00 am LABWORK July 14, 2024 5:0 0am MCC LAB WORK July 17, 2024 4 :00am MCC LAB WORK July 21, 2024 5 :00am MCC LAB WORK July 24, 2024 4 :00am LABWORK July 25, 2024 5:0 0am MCC LAB WORK July 28, 2024 5 :00am MCC LAB WORK July 31, 2024 4 :00am LABWORK August 04, 2024 5:0 0am LABWORK August 07, 2024 5:00 am MCC LAB WORK August 11, 2024 5: 00am MCC LAB WORK August 14, 2024 5 :00am MCC LAB WORK August 18, 2024 5 :00am MCC LAB WORK August 21, 2024 5 :00am MCC LAB WORK August 25, 2024 4 :00am LABWORK August 28, 2024 5:0 0am LABWORK September 01, 2024 5:0 0am LABWORK September 04, 2024 5:00am Chief Complaint Admit Date MCC LAB WORK June 05, 2024 5:00am LABWORK June 09, 2024 5 :00am MCC LAB WORK June 12, 2024 5:00am MCC LAB WORK June 16 5:00am MCC LAB WORK June 19 5:00am LABWORK June 23, 2024 5:00am MCC LAB WORK June 26 5:00am MCC LAB WORK February 24th, 202 5 5:00am MCC LAB WORK July 03 5:00am MCC LAB WORK July 07, 2024 4: 00am LABWORK July 11, 2024 5:00 am LABWORK July 14, 2024 5:0 0am MCC LAB WORK July 17, 2024 4 :00am MCC LAB WORK July 21, 2024 5 :00am MCC LAB WORK July 24, 2024 4 :00am LABWORK July 25, 2024 5:0 0am MCC LAB WORK July 28, 2024 5 :00am MCC LAB WORK July 31, 2024 4 :00am LABWORK August 04, 2024 5:0 0am LABWORK August 07, 2024 5:00 am MCC LAB WORK August 11, 2024 5: 00am MCC LAB WORK August 14, 2024 5 :00am [facility] August 18, 2024 5 :00am [facility] August 21, 2024 5 :00am [facility] August 25, 2024 4 :00am LABWORK August 28, 2024 5:0 0am LABWORK September 01, 2024 5:0 0am LABWORK September 04, 2024 5:00am LABWORK September 15, 2024 5:00a m Chief Complaint Admit Date [facility] June 19 5:00am LABWORK June 23, 2024 5:00am [facility] June 26 5:00am [facility] June 30 5:00am [facility] July 03 5:00am [facility] July 07, 2024 4: 00am LABWORK July 11, 2024 5:00 am LABWORK July 14, 2024 5:0 0am [facility] July 17, 2024 4 :00am [facility] July 21, 2024 5 :00am [facility] July 24, 2024 4 :00am LABWORK July 25, 2024 5:0 0am [facility] July 28, 2024 5 :00am [facility] July 31, 2024 4 :00am LABWORK August 04, 2024 5:0 0am LABWORK August 07, 2024 5:00 am [facility] August 11, 2024 5: 00am [facility] August 14, 2024 5 :00am [facility] August 18, 2024 5 :00am [facility] August 21, 2024 5 :00am [facility] August 25, 2024 4 :00am LABWORK August 28, 2024 5:0 0am LABWORK September 01, 2024 5:0 0am LABWORK September 04, 2024 5:00am [facility] September 08, 2024 4:00 am [facility] September 11, 2024 5:00 am LABWORK September 15, 2024 5:00a m [facility] September 25, 2024 5:0 0am [facility] September 30, 2024 4:0 0am Chief Complaint Admit Date [facility] June 12, 2024 5:00am [facility] June 16 5:00am [facility] June 19 5:00am LABWORK June 23, 2024 5:00am [facility] June 26 5:00am [facility] June 30 5:00am [facility] July 03 5:00am [facility] July 07, 2024 4: 00am LABWORK July 11, 2024 5:00 am LABWORK July 14, 2024 5:0 0am [facility] July 17, 2024 4 :00am [facility] July 21, 2024 5 :00am [facility] July 24, 2024 4 :00am LABWORK July 25, 2024 5:0 0am [facility] July 28, 2024 5 :00am [facility] July 31, 2024 4 :00am LABWORK August 04, 2024 5:0 0am LABWORK August 07, 2024 5:00 am [facility] August 11, 2024 5: 00am [facility] August 14, 2024 5 :00am [facility] August 18, 2024 5 :00am [facility] August 21, 2024 5 :00am [facility] August 25, 2024 4 :00am LABWORK August 28, 2024 5:0 0am LABWORK September 01, 2024 5:0 0am LABWORK September 04, 2024 5:00am [facility] September 08, 2024 4:00 am LABWORK September 15, 2024 5:00a m Chief Complaint Admit Date [facility] July 07, 2024 4: 00am LABWORK July 11, 2024 5:00 am LABWORK July 14, 2024 5:0 0am [facility] July 17, 2024 4 :00am [facility] July 21, 2024 5 :00am [facility] July 24, 2024 4 :00am LABWORK July 25, 2024 5:0 0am [facility] July 28, 2024 5 :00am [facility] July 31, 2024 4 :00am LABWORK August 04, 2024 5:0 0am LABWORK August 07, 2024 5:00 am [facility] August 11, 2024 5: 00am [facility] August 14, 2024 5 :00am [facility] August 18, 2024 5 :00am [facility] August 21, 2024 5 :00am [facility] August 25, 2024 4 :00am LABWORK August 28, 2024 5:0 0am LABWORK September 01, 2024 5:0 0am LABWORK September 04, 2024 5:00am [facility] September 08, 2024 4:00 am [facility] September 11, 2024 5:00 am LABWORK September 15, 2024 5:00a m [facility] September 18, 2024 5:0 0am [facility] September 22, 2024 5:0 0am [facility] September 25, 2024 5:0 0am [facility] September 30, 2024 4:0 0am [facility] October 02, 2024 5:0 0am [facility] October 09, 2024 5:0 0am Chief Complaint Admit Date [facility] October 09, 2024 5:0 0am LABWORK October 13, 2024 5:00a m [facility] October 16, 2024 5: 00am [facility] October 20, 2024 4: 00am [facility] October 23, 2024 5: 00am [facility] October 27, 2024 4: 00am [facility] October 30, 2024 6: 35am LABWORK November 03, 2024 5:00 am [facility] November 06, 2024 4:0 0am [facility] November 10, 2024 4:0 0am [facility] November 13, 2024 5: 00am [facility] November 17, 2024 5: 00am [facility] November 20, 2024 5: 00am [facility] November 24, 2024 5: 00am [facility] November 27, 2024 5: 00am LABWORK November 28, 2024 5:00 am LABWORK December 01, 2024 5:00 am [facility] December 02, 2024 4: 00am [facility] December 04, 2024 5: 00am [facility] December 08, 2024 5 :00am LABWORK December 11, 2024 6:0 0am [facility] December 15, 2024 4:00am [facility] December 18, 2024 5:00am [facility] December 22, 2024 4:00am LABWORK December 24, 2024 5: 00am [facility] December 25, 2024 5:00am [facility] December 26, 2024 5:00am LABWORK December 29, 2024 5: 00am [facility] January 01, 2025 5:00am [facility] January 06 5:00am LABWORK January 08, 2025 5:00am [facility] January 12 4:00am [facility] January 15 5:00am LABWORK January 19, 2025 5:00am [facility] January 26 4:00am Chief Complaint Admit Date LABWORK November 03, 2024 5:00 am [facility] November 06, 2024 4:0 0am [facility] November 10, 2024 4:0 0am [facility] November 13, 2024 5: 00am [facility] November 17, 2024 5: 00am [facility] November 20, 2024 5: 00am [facility] November 24, 2024 5: 00am [facility] November 27, 2024 5: 00am LABWORK November 28, 2024 5:00 am LABWORK December 01, 2024 5:00 am [facility] December 02, 2024 4: 00am [facility] December 04, 2024 5: 00am [facility] December 08, 2024 5 :00am LABWORK December 11, 2024 6:0 0am [facility] December 15, 2024 4:00am [facility] December 18, 2024 5:00am [facility] December 22, 2024 4:00am LABWORK December 24, 2024 5: 00am [facility] December 25, 2024 5:00am [facility] December 26, 2024 5:00am LABWORK December 29, 2024 5: 00am [facility] January 01, 2025 5:00am [facility] January 06 5:00am LABWORK January 08, 2025 5:00am [facility] January 12 4:00am [facility] January 15 5:00am LABWORK January 19, 2025 5:00am [facility] January 22 5:00am [facility] January 26 4:00am [facility] January 29 7:30am [facility] February 02 4:00am [facility] February 05, 2025 5:00am [facility] February 16, 2025 4:00am Reason for Referral Specialty Diagnoses / Procedures Referred By Aki kumari Referred To Contact Urology Diagnoses Other fatigue Lanette Munguia, [address] [place] [address] [facility] [address] [place] [id number] Referral ID Status Reason Start Date Expiration Date V isits Requested Visits Authorized [id number] Open Specialty Services Required 11/01/2021 11/01/2022 1 1 Scheduling Instructions [facility] - [address] , [address] [place] [id number] Specialty Diagnoses / Procedures Referred By Aki kumari Referred To Contact IP Unit Diagnoses Heel ulceration, left, with unspecified severity (HCC) Henry Hidalgo PA [address] [place] [address] [address] [facility] [facility] [address] [place] [address] Referral ID Status Reason Start Date Expiration Date V isits Requested Visits Authorized [id number] Open Specialty Services Required 12/22/2021 12/22/2022 1 1 Scheduling Instructions [facility] - [address] [place] [address] [place] [address] Comments Please use the parking lot located on [address] or [employer]. There are handicap parking spots located in a small lot beside the wound care entrance off of [address]. Please be advised there is a small incline from those handicap spots to our main door. Bring photo ID and insurance card to photocopy. Wear loose fitting clothing (to easily access wound). Bring list of medications (or can be sent by office). Check in at Registration for your first visit. Please call us directly with any questions [phone]. We look forward to helping you heal. Specialty Diagnoses / Procedures Referred By Contdesiree t Referred To Contact Radiology Diagnoses Left flank pain Calculus of ureter Procedures CT abdomen pelvis wo IV contrast Rebecca Buck MD [address] [place] [address] Referral ID Status Reason Start Date Expiration Date V isits Requested Visits Authorized [id number] Pending Review 08/13/2023 08/12/2024 1 1 Referral ID Status Reason Start Date Expiration Date Visits Re quested Visits Authorized [id number] Closed 08/17/2023 09/16/2023 1 1 Additional Source Comments Source Comments (unrecognize d section and content) In the event this informatio n is protected by the Federal Confidentiality of Alcohol and Drug Abuse Patient Records regulations: The Federal rules restrict any use of the information to criminally investigate or prosecute any alcohol or drug abuse patient.[facility] the event this information is protected by the Federal Confidentiality of Alcohol and Drug Abuse Patient Records regulations: The Federal rules restrict any use of the information to criminally investigate or prosecute any alcohol or drug abuse patient.[facility] (unrecognized sect ion and content) No Status Records FoundNo Status Records FoundNo Status Records FoundNo Status Records FoundNo Status Records FoundNo Status Records FoundNo Status Records FoundNo Status Records FoundNo Status Records FoundNo Status Records Found INFORMATION SOURCE (unrecogn ized section and content) DATE CREATED AUTHOR 05/20/2021 [facility] DATE CREATED AUTHOR AUTHOR'S ORGANIZ ATION 06/07/2021 [facility] DATE CREATED AUTHOR AUTHOR'S ORGANIZ ATION 08/02/2021 [facility] DATE CREATED AUTHOR AUTHOR'S ORGANIZ ATION 12/09/2021 [facility] DATE CREATED AUTHOR AUTHOR'S ORGANIZ ATION 12/29/2021 [facility] DATE CREATED AUTHOR AUTHOR'S ORGANIZ ATION 02/04/2022 [facility] DATE CREATED AUTHOR AUTHOR'S ORGANIZ ATION 03/03/2022 [facility] DATE CREATED AUTHOR AUTHOR'S ORGANIZ ATION 09/15/2023 [facility] DATE CREATED AUTHOR AUTHOR'S ORGANIZ ATION 03/07/2025 [facility] Reason for Visit (unrecogniz ed section and content) Reason Comments Missed Appointment Reason Comments Leg Swelling Blood clots Reason Comments Altered Mental Status Pt presents to ED via [facility] for complaint listed. Pt is from [place] [facility]. Pt's LKW was 1000 hours today. Per EMS, pt had a - [place]. Pt denies CP, SOB, and N/V. Pt seems slow to respond, slightly confused at this time. Reason Comments Osteomyelitis Patient from [facility] did xrays on left lower leg and [...] IV contrast Rebecca Buck MD [address] [place] [address] Referral ID Status Reason Start Date Expiration Date Visits Re quested Visits Authorized [id number] Closed 08/17/2023 09/16/2023 1 1 Reason Comments [...] Status Dates Carlos NOVAK Attending Provider Active Business Office Representative Relationship Specialty Start Date End Date Mateus Burris [address] [place] [address] PCP - General Family Practice 11/12/19 Business Office Representative Relationship Specialty [place] [address] [place] [address] PCP - General Family Medicine 09/09/20 Business Office Representative Relationship Specialty [place] [address] [place] [address] PCP - General Family Medicine 09/09/20 Business Office Representative Relationship Specialty [place] [address] [place] [address] PCP - General Family Medicine 09/09/20 Business Office Representative Relationship Specialty Start Date End Date Carlos Cavazos MD [address] [facility] [address] [place] [address] PCP - General Internal Medicine 02/20/22 Team [...] Monika Staley MD Primary Care Provider Active Business Office Representative Relationship Specialty Start Date End Date Carlos Cavazos [address] [place] [phone] PCP - General 12/21/21 Rebecca Buck MD [address] [facility] [place] [address] Surgeon Urology 06/25/23 Team Status: Inactive Member [...] NOVAK Attending Provider, Referring Provi lupillo Active Business Office Representative Relationship Specialty Start Date End Date Carlos Cavazos [address] [place] [phone] PCP - General 12/21/21 Rebecca Buck MD [address] [address] Surgeon Urology 06/25/23 Business Office Representative Relationship Specialty Start Date End Date Carlos Cavazos [address] [place] [phone] PCP - General 12/21/21 Rebecca Buck MD [address] [address] Surgeon Urology 06/25/23 Business Office Representative Relationship Specialty Start Date End Date Carlos Cavazos [address] [place] [phone] PCP - General 12/21/21 Rebecca Buck MD [address] [address] Surgeon Urology 06/25/23 Business Office Representative Relationship Specialty Start Date End Date Carlos Cavazos [address] [place] [phone] PCP - General 12/21/21 Rebecca Buck MD [address] [address] Surgeon Urology 06/25/23 Business Office Representative Relationship Specialty Start Date End Date Carlos Cavazos [address] [place] [phone] PCP - General 12/21/21 Rebecca Buck MD [address] [address] Surgeon Urology 06/25/23 Business Office Representative Relationship Specialty Start Date End Date Carlos Cavazos [address] [place] [phone] PCP - General 12/21/21 Rebecca Buck MD [address] [address] Surgeon Urology 06/25/23 Team Status: Inactive Member Role Status Dates Dr. Monika Staley MD Primary Care Provider Active Start: March 13, 2024 End: March 13, 2024 [facility] Attending Provider Active Start: March 13, 2024 [...] March 17, 2024 End: March 17, 2024 [facility] Attending Provider Active Start: March 17, 2024 End: March 17, 2024 Team Status: Inactive Member Role Status Dates Dr. Monika Staley MD Primary Care Provider Active Start: March 18, 2024 End: March 18, 2024 [facility] Attending Provider Active Start: March 18, 2024 [...] March 20, 2024 End: March 20, 2024 [facility] Attending Provider Active Start: March 20, 2024 [...] March 27, 2024 End: March 27, 2024 [facility] Attending Provider Active Start: March 27, 2024 [...] Care Provider Active Start: July 07, 2024 [facility] Attending Provider Active Start: July 07, 2024 [...] Status: Inactive Member Role Status Dates Dr. Moniak Staley MD Primary Care Provider Active Start: [...] November 03, 2024 End: November 03, 2024 Team Status: Inactive Member Role/Relationship Status Dates Dr. Monika Staley MD Primary care physician Activ e Start: November 03, 2024 End: November 03, 2024 Carlos NOVAK Attending physician Active St art: November 03, 2024 End: November 03, 2024 Team Status: Active Member [...] Activ e Start: December 18, 2024 Karon ONVAK MD Attending physician Active Start: December 18, [...] Active Start: December 25, 2024 Team Status: Inactive Member Role/Relationship Status Dates Dr. Monika Staley MD Primary care physician Activ e Start: December 26, 2024 End: December 26, 2024 Karon NOVAK MD Attending physician Active Start: December 26, 2024 End: December 26, 2024 Team Status: Active Member Role/Relationship Status Dates Dr. Monika Staley MD Primary care physician Activ e Start: December 29, 2024 Carlos NOVAK Attending physician Active St art: December 29, 2024 Team Status: Inactive Member Role/Relationship Status Dates Dr. Monika Staley MD Primary care physician Activ e Start: January 01, 2025 End: January 01, 2025 Karon NOVAK MD Attending physician Active Start: January 01, 2025 End: January 01, 2025 Team Status: Active Member [...] Attending physician Active Start: February 02, 2025 Karon NOVAK MD Referring Provider Active Start: February 02, 2025 Team Status: Active Member Role/Relationship Status Dates Dr. Monika Staley MD Primary care physician Activ e Start: February 05, 2025 Karon NOVAK MD Attending physician Active Start: February 05, 2025 Team Status: Active Member Role/Relationship Status Dates Dr. Monika Staley MD Primary care physician Activ e Start: February 09, 2025 Carlos NOVAK Attending physician Active St art: February 09, 2025 Team Status: Active Member Role/Relationship Status Dates Dr. Monika Staley MD Primary care physician Activ e Start: February 12, 2025 Karon NOVAK MD Attending physician Active Start: February 12, 2025 Team Status: Active Member Role/Relationship Status Dates Dr. Monika Staley MD Primary care physician Activ e Start: February 16, 2025 Karon NOVAK MD Attending physician Active Start: February 16, 2025 Karon NOVAK MD Referring Provider Active Start: February 16, 2025 Team Status: Active Member Role/Relationship Status Dates Dr. Monika Staley MD Primary care physician Activ e Start: February 19, 2025 Karon NOVAK MD Attending physician Active Start: February 19, 2025 Team Status: Active Member Role/Relationship Status Dates Dr. Monika Staley MD Primary care physician Activ e Start: February 23, 2025 Karon NOVAK MD Attending physician Active Start: February 23, 2025 Team Status: Active Member Role/Relationship Status Dates Dr. Monika Staley MD Primary care physician Activ e Start: February 26, 2025 Karon NOVAK MD Attending physician Active Start: February 26, 2025 Team Status: Active Member Role/Relationship Status Dates Dr. Monika Staley MD Primary care physician Activ e Start: March 02, 2025 Carlos NOVAK Attending physician Active St art: March 02, 2025 Ordered Prescriptions (unrec ognized section and content) [...] mg, Oral, ONCE Warfarin, 1 dose, On [facility] 10/29/21 at 1800, Indication of Use: [...] Saline lock IV Routine, CONTINUOUS, Starting on Sun22 at 0000, Until Specified And sodium chloride [...] BE BASED ON THE PRIMARY CLINICAL RECORDS. [employer] [facility]. provides no warranty or guarantee of the accuracy or completeness of information in this document.
[2025-03-09 09:11] LABS: Prothrombin Time (Protime)PT. 18.4 SECONDS (11.7-14.9)
== END ==
LOC: OLS.SANC 04:00
PROVIDERS: PCP General Practice
DX: Z79.01 Long term (current) use of 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 (principal)
CPT/HCPCS: 36415; 85610

== ENCOUNTER → 2025-03-11 05:00 | Outpatient (REF) | payer MEDICARE, MEDICAID, SELFPAY ==
--- OUTSIDE RECORDS SUMMARY | 2025-03-11 04:36 | XMS RPT_ITS | CCD ---
Author Organization [facility] Care Team Providers Care [employer] Customer Service Name Role Phone Mateus Burris Primary Care [...] Provider Monika Staley MD Primary Care Provider [phone] Monika Staley MD Primary Care Provider Carlos [...] L Unavailable Cielo VALLADARES, Rebecca L Unavailable REBECCA BUCK Attending Unavailable REBECCA BUCK Referring Unavailable CARLOS CAVAZOS Primary Care Unavailable REBECCA BUCK Attending Unavailable KENNY, CARLOS Primary Care Unavailable REBECCA BUCK Attending Unavailable KENNY, CARLOS Primary Care Unavailable Luís VALLADARES, Dr. Monika Horner Primary Care Provider [facility] Attending Provider [phone] Carlos Nelson Attending Provider Jonh Pascual MD, [...] Horner Primary Care Provider Andressa VALLADARES, Dr. Cadleron Attending Provider Unava ilCarlos Anglin Attending Provider [...] MD, Dr. Monika Horner Primary Care Physician Sara VALLADARES, Karno Attending Physician Unav Carlos Fontaine Attending Physician Camelia Corrales MD, Karon Referring Provider Unava evan Staley MD, Dr. Monika Horner Primary Care Physician Carlos Nelson Attending Physician Unavailvanessa Corrales MD, Karon Attending Physician Unav mike Corrales MD, Karon Referring Provider Unava ilMonika Barrow Primary Care Unavailable Karon Shah Attending Unavail able Monika Staley Primary Care Unavailable Carlos Nelson Attending Unavailable Kvng Sen Referring Unavailable Luís, Monika Horner Primary Care Unavailable Kvng Sen Attending Unavailable Luís, Monika Horner Primary Care Unavailable Carlos Nelson Attending Unavailable [...] Luís, Shiela Primary Care Unavailable [facility], Malin Attending Tricia denise Luís, Shiela Primary Care Unavailable Crisostomo OLSKvng Attending Unavailable Luís, Shiela Primary Care Unavailable Crisostomo OLSKvng Attending Unavailable Luís, Shiela Primary Care Unavailable Katsaros SCARLET, Carlos Attending Unavailable Luís, Shiela Primary Care Unavailable Crisostomo OLSKvng Attending Unavailable Luís, Shiela Primary Care Unavailable Crisostomo OLSKvng Attending Unavailable Luís, Shiela Primary Care Unavailable Crisostomo OLSKvng Attending Unavailable Mukkamalla OLS, Melindaer Referring Unavail [...] Katsaros OLS, Carlos Attending Unavailable Mukkamalla OLS, Carlaaveer Referring Unavail able Luís, Shiela Primary Care Unavailable Mukkamalla OLS, Carlaaveer Attending Unavail able Luís, Shiela Primary Care Unavailable Mukkamalla OLS, Carlaaveer Attending Unavail able Luís, Shiela Primary Care Unavailable Mukkamalla OLS, Carlaaveer Attending Unavail able Luís, Shiela Primary Care Unavailable Katsaros OLS, Carlos Attending Unavailable Mukkamalla OLS, Carlaaveer Referring Unavail able Luís, Shiela Primary Care Unavailable Mukkamalla OLS, Carlaaveer Attending Unavail able Luís, Shiela Primary Care Unavailable [place]kamalla OLS, Carlaaveer Attending Unavail able Mukkamalla OLS, Mahaveer Referring Unavail able Ulís, Shiela Primary Care Unavailable [...] Luís, Shiela Primary Care Unavailable [facility], [facility] Attending Unaalexandra denise Crisostomo OLS, Kvng Referring Unavailable Luís, Shiela Primary Care Unavailable Crisostomo OLS, Vicentebaljeet Attending Unavailable Luís, Shiela Primary Care Unavailable Crisostomo OLS, Vicentebaljeet Attending Unavailable Luís, Shiela Primary Care Unavailable [facility], [facility]in Attending Unavai lable Luís, Shiela Primary Care Unavailable Katsaros OLS, Carlos Attending Unavailable Luís, Shiela Primary Care Unavailable [facility], [facility] Attending Unavai lable Luís, Shiela Primary Care [...] OLS, Babbaljeet Attending Unavailable Crisostomo OLS, Babbaljeet Attending Unavailable Luís, Shiela Primary Care Unavailable Luís, Shiela Primary Care Unavailable Crisostomo OLS, Babbaljeet Attending Unavailable Crisostomo OLS, Babbaljeet Referring Unavailable Luís, Shiela Primary Care Unavailable Crisostomo OLS, Babbaljeet Attending Unavailable Mukkamalla OLSMelindaer Referring Unavail able Luís, Shiela Primary Care Unavailable [place] OLSMelindaer Attending Unavail able Luís, Shiela Primary Care [...] Unavailable Mukkamalla OLS, Carlaaveer Attending Unavail able Crisostomo OLSVicentebalkarolet Referring Unavailable Luís, Shiela Primary Care Unavailable Crisostomo OLSKvng Attending Unavailable Luís, Shiela Primary Care Unavailable [facility], [facility]in Attending Tricia bustamantele Luís, Shiela Primary Care Unavailable Crisostomo OLSKvng Attending Unavailable [place]kamalla OLS, Melindaer Referring Unavail able Luís, Shiela Primary Care Unavailable [place]amalla OLS, Carlaaveer Attending Unavail able Luís, Shiela Primary Care Unavailable Katsaros OLS, Peter Attending Unavailable Luís, Shiela Primary Care Unavailable Katsaros OLS, Peter Attending Unavailable Luís, Shiela Primary Care Unavailable Katsaros OLS, Peter Attending Unavailable Mukkamalla OLS, Carlaaveer Referring Unavail able Luís, [...] Luís, Shiela Primary Care Unavailable [facility], [facility] Attending Tricia bustamantele Luís, Shiela Primary Care [...] Katsaros OLS, Peter Attending Unavailable Mukkamalla OLS, Karon Referring Unavail [...] able Mukkamalla OLS, Mahaveer Referring Unavail able Líus, Shiela Primary Care Unavailable [place]amalla OLS, Mahaveer Attending Unavail able Luís, Shiela Primary Care Unavailable [place]amalla OLS, Mahaveer Attending Unavail able Luís, Shiela Primary Care Unavailable [place] OLS, Carlaaveer Attending Unavail able Mukkamalla OLS, Mahaveer Referring Unavail able Luís, [facility] Primary Care Unavailable Mukkamalla OLS, Mahaveer Attending Unavail able Allergies Allergy Classification Reported Allergen(s) Allergy Type Date of Onset Reaction(s) Facility (13 sources) Morphine Drug Allergy 5 [facility] Work Phone: (15 sources) Alcohol Propensity to adverse reactions to drug 3 Rash, Hives, Other: See Comments, Other [facility] Work Phone: (1 source) Latex Drug Allergy 0 Rash [facility] (8 sources) Cortisone Drug Allergy 2 [facility] (7 sources) Latex Allergy to substance 0 Rash [facility] Medications Current Medications Medication Drug Class(es) Dates Sig (Normalized) Sig (Original) Acetaminophen (10 sources) Start: 10-21-2021 acetaminophen (TYLENOL) tablet 650 mg Start: 09-14-2021 acetaminophen (TYLENOL) 325 MG tablet 650 mg every 6 hours as needed 0 09/14/2021 Active take 2 tablets by [facility] every eight hours acetaminophen (TYLENOL) 325 [...] Elastic Bandages & Supports (MEDICAL COMPRESSION STOCKINGS) [facility] (6 sources) Start: 9 Elastic Bandages & [...] 0.4 mg oral capsule (11 sources) alpha-Adrenergic Adnielle Start: 06-30-2023 tamsulosin (Flomax) 0.4 MG 24 hr capsule Start: 02-15-2022 End: 02-16-2023 take 1 capsule by mouth once daily tamsulosin (FLOMAX) 0.4 MG capsule Take 1 capsule by mouth daily 90 capsule 3 02/15/2022 02/16/2023 Active Start: 11-01-2021 take 1 capsule by mo [facility] once daily tamsulosin (FLOMAX) 0.4 MG capsule [...] on above: Take 1 capsule by mo [facility] three times daily. Complete Multi-Vitamin [...] Active docusate sodium 50 mg / sennosides, half-way 8.6 mg oral tablet (1 source) Start: [...] Comment on above: Take 1 tablet by [facility] once daily. Pentoxifylline (1 source) Blood Viscosity Donor Services Manager PENTOXIFYLLINE ORAL Take by mouth. 0 Active Comment on above: Take by mouth. petrolatum 0.41 mg/mg topical ointment (1 source) Start : 08-20 white petrolatum (AQUAPHOR) 41 % topical ointment Apply to affected area once daily. 0 08/20/2021 Active Comment on above: Apply to affected ar ea once daily. 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, [address] PT Coag (PPP) [Time] 18.4 s High 11.7-14.9 [facility] Comment on above: Order Comment: 411.2 Performed By: #### L 300.3900 ####[facility] [address] [place], [address] Prothrombin Time w/INRon INR Coag (PPP) [Relative time] 1.8 {INR} Normal [facility] Comment on above: Order Comment: 411.2 Performed By: #### L 300.3900 ####[facility] [address] [place], [address] PT Coag (PPP) [Time] 21.2 s High 11.7-14.9 [facility] Comment on above: Order Comment: 411.2 Performed By: #### L 300.3900 ####[facility] [address] [place], [address] International normalized rat io (INR) calculationOrdered By: Carlos Cavazos on 03-02-2025 INR Coag (Bld) [Relative time] 2.2 {INR} [facility] Prothrombin Time w/INRon INR Coag (PPP) [Relative time] 2.2 {INR} Normal [facility] Comment on above: Order Comment: 411-2 Performed By: #### L 300.3900 ####[facility] [address] [place], [address] Prothrombin timeOrdered By: Carlos Cavazos on 03-02-2025 PT Coag (PPP) [Time] 25.3 s High 11.7-14.9 [facility] Comment on above: Order Comment: 411-2 Performed By: #### L 300.3900 ####[facility] [address] [place], [place], [id number] International normalized rat io (INR) calculationOrdered By: Karon Corrales on 02-26-2025 INR Coag (Bld) [Relative time] 2.2 {INR} [facility] Prothrombin Time w/INRon INR Coag (PPP) [Relative time] 2.2 {INR} Normal [facility] Comment on above: Order Comment: 411.2 Performed By: #### L 300.3900 ####[facility] [address] [place], [place], [phone] PT Coag (PPP) [Time] 24.5 s High 11.7-14.9 [facility] Comment on above: Order Comment: 411.2 Performed By: #### L 300.3900 ####[facility] [address] [place], [place], [phone] Prothrombin timeOrdered By: Karon Corrales on 02-26-2025 PT Coag (PPP) [Time] 24.5 s High 11.7-14.9 [facility] International normalized rat io (INR) calculationOrdered By: Karon Corrales on 02-23-2025 INR Coag (Bld) [Relative time] 2.0 {INR} [facility] Prothrombin Time w/INRon INR Coag (PPP) [Relative time] 2.0 {INR} Normal [facility] Comment on above: Order Comment: 411.2 Performed By: #### L 300.3900 ####[facility] [address] [place], [address] PT Coag (PPP) [Time] 23.5 s High 11.7-14.9 [facility] Comment on above: Order Comment: 411.2 Performed By: #### L 300.3900 ####[facility] [address] [place], [address] Prothrombin timeOrdered By: Karon Corrales on 02-23-2025 PT Coag (PPP) [Time] 23.5 s High 11.7-14.9 [facility] International normalized rat io (INR) calculationOrdered By: Karon Corrales on 02-19-2025 INR Coag (Bld) [Relative time] 1.9 {INR} [facility] Prothrombin Time w/INRon INR Coag (PPP) [Relative time] 1.9 {INR} Normal [facility] Comment on above: Order Comment: 411.2 Performed By: #### L 300.3900 ####[facility] [address] [place], [address] PT Coag (PPP) [Time] 21.8 s High 11.7-14.9 [facility] Comment on above: Order Comment: 411.2 Performed By: #### L 300.3900 ####[facility] [address] [place], [address] Prothrombin timeOrdered By: Karon Corrales on 02-19-2025 PT Coag (PPP) [Time] 21.8 s High 11.7-14.9 [facility] International normalized rat io (INR) calculationOrdered By: Karon Corrales on 02-16-2025 INR Coag (Bld) [Relative time] 1.5 {INR} [facility] Prothrombin Time w/INRon INR Coag (PPP) [Relative time] 1.5 {INR} Normal [facility] Comment on above: Order Comment: 411.2 Performed By: #### L 300.3900 ####[facility] [address] [place], [place], [phone] PT Coag (PPP) [Time] 18.6 s High 11.7-14.9 [facility] Comment on above: Order Comment: 411.2 Performed By: #### L 300.3900 ####[facility] [address] [place] [phone] Prothrombin timeOrdered By: Karon Corrales on 02-16-2025 PT Coag (PPP) [Time] 18.6 s High 11.7-14.9 [facility] International normalized rat io (INR) calculationOrdered By: Karon Corrales on 02-12-2025 INR Coag (Bld) [Relative time] 2.5 {INR} [facility] Prothrombin Time w/INRon INR Coag (PPP) [Relative time] 2.5 {INR} Normal [facility] Comment on above: Order Comment: 411.2 Performed By: #### L 300.3900 ####[facility] [address], [address] PT Coag (PPP) [Time] 27.5 s High 11.7-14.9 [facility] Comment on above: Order Comment: 411.2 Performed By: #### L 300.3900 ####[facility] [address] [place], [place], [phone] Prothrombin timeOrdered By: Karon Corrales on 02-12-2025 PT Coag (PPP) [Time] 27.5 s High 11.7-14.9 [facility] International normalized rat io (INR) calculationOrdered By: Carlos Cavazos on 02-09-2025 INR Coag (Bld) [Relative time] 2.5 {INR} [facility] Prothrombin Time w/INRon INR Coag (PPP) [Relative time] 2.5 {INR} Normal [facility] Comment on above: Order Comment: 411-2 Performed By: #### L 300.3900 ####[facility] [address] [place], [address] INR Normal [facility] Comment on above: Order Comment: 411.2 Result Comment: MISS ING TUBE Performed By: #### L 300.3900 ####[facility] [address] [place], [address] PROTIME Normal 11.7-14.9 [facility] Comment on above: Order Comment: 411.2 Result Comment: MISS ING TUBE Performed By: #### L 300.3900 ####[facility] [address] [place], [address] Prothrombin timeOrdered By: Carlos Cavazos on 02-09-2025 PT Coag (PPP) [Time] 27.2 s High 11.7-14.9 [facility] Comment on above: Order Comment: 411-2 Performed By: #### L 300.3900 ####[facility] [address] [place], [address] International normalized rat io (INR) calculationOrdered By: Karon Corrales on 02-05-2025 INR Coag (Bld) [Relative time] 2.5 {INR} [facility] Prothrombin Time w/INRon INR Coag (PPP) [Relative time] 2.5 {INR} Normal [facility] Comment on above: Order Comment: 411.2 Performed By: #### L 300.3900 ####[facility] [address] [place], [address] PT Coag (PPP) [Time] 27.6 s High 11.7-14.9 [facility] Comment on above: Order Comment: 411.2 Performed By: #### L 300.3900 ####[facility] [address] [place], [place], [phone] Prothrombin timeOrdered By: Karon Corrales on 02-05-2025 PT Coag (PPP) [Time] 27.6 s High 11.7-14.9 [facility] International normalized rat io (INR) calculationOrdered By: Karon Corrales on 02-02-2025 INR Coag (Bld) [Relative time] 2.4 {INR} [facility] Prothrombin Time w/INRon INR Coag (PPP) [Relative time] 2.4 {INR} Normal [facility] Comment on above: Order Comment: 411.2 Performed By: #### L 300.3900 ####[facility] [address] [place], [place], [phone] PT Coag (PPP) [Time] 26.8 s High 11.7-14.9 [facility] Comment on above: Order Comment: 411.2 Performed By: #### L 300.3900 ####[facility] [address] [place], [place], [phone] Prothrombin timeOrdered By: Karon Corrales on 02-02-2025 PT Coag (PPP) [Time] 26.8 s High 11.7-14.9 [facility] International normalized rat io (INR) calculationOrdered By: Karon Corrales on 01-29-2025 INR Coag (Bld) [Relative time] 2.7 {INR} [facility] Prothrombin Time w/INRon INR Coag (PPP) [Relative time] 2.7 {INR} Normal [facility] Comment on above: Performed By: #### L 300.3900 ####[facility] [address] [place], [place], [phone] PT Coag (PPP) [Time] 29.1 s High 11.7-14.9 [facility] Comment on above: Performed By: #### L 300.3900 ####[facility] [address] [place], [place], [phone] Prothrombin timeOrdered By: Karon Corrales on 01-29-2025 PT Coag (PPP) [Time] 29.1 s High 11.7-14.9 [facility] International normalized rat io (INR) calculationOrdered By: Karon Corrales on 01-26-2025 INR Coag (Bld) [Relative time] 2.0 {INR} [facility] Prothrombin Time w/INRon INR Coag (PPP) [Relative time] 2.0 {INR} Normal [facility] Comment on above: Order Comment: 411.2 Performed By: #### L 300.3900 ####[facility] [address] [place], [place], [phone] PT Coag (PPP) [Time] 23.1 s High 11.7-14.9 [facility] Comment on above: Order Comment: 411.2 Performed By: #### L 300.3900 ####[facility] [address] [place], [place], [phone] Prothrombin timeOrdered By: Karon Corrales on 01-26-2025 PT Coag (PPP) [Time] 23.1 s High 11.7-14.9 [facility] International normalized rat io (INR) calculationOrdered By: Karon Corrales on 01-22-2025 INR Coag (Bld) [Relative time] 2.4 {INR} [facility] Prothrombin Time w/INRon INR Coag (PPP) [Relative time] 2.4 {INR} Normal [facility] Comment on above: Order Comment: 411.2 Performed By: #### L 300.3900 ####[facility] [address] [place], [address] PT Coag (PPP) [Time] 26.6 s High 11.7-14.9 [facility] Comment on above: Order Comment: 411.2 Performed By: #### L 300.3900 ####[facility] [address] [place], [address] Prothrombin timeOrdered By: Karon Corrales on 01-22-2025 PT Coag (PPP) [Time] 26.6 s High 11.7-14.9 [facility] International normalized rat io (INR) calculationOrdered By: Carlos Cavazos on 01-19-2025 INR Coag (Bld) [Relative time] 2.7 {INR} [facility] Prothrombin Time w/INRon INR Coag (PPP) [Relative time] 2.7 {INR} Normal [facility] Comment on above: Order Comment: 411-2 Performed By: #### L 300.3900 ####[facility] [address] [place], [address] PT Coag (PPP) [Time] 29.7 s High 11.7-14.9 [facility] Comment on above: Order Comment: 411-2 Performed By: #### L 300.3900 ####[facility] [address] [place], [address] Prothrombin timeOrdered By: Carlos Cavazos on 01-19-2025 PT Coag (PPP) [Time] 29.7 s High 11.7-14.9 [facility] International normalized rat io (INR) calculationOrdered By: Karon Corrales on 01-15-2025 INR Coag (Bld) [Relative time] 2.4 {INR} [facility] Prothrombin Time w/INRon INR Coag (PPP) [Relative time] 2.4 {INR} Normal [facility] Comment on above: Order Comment: 411.1 Performed By: #### L 300.3900 ####[facility] [address] [place], [place], [phone] PT Coag (PPP) [Time] 26.6 s High 11.7-14.9 [facility] Comment on above: Order Comment: 411.1 Performed By: #### L 300.3900 ####[facility] [address] [place], [place], [phone] Prothrombin timeOrdered By: Karon Corrales on 01-15-2025 PT Coag (PPP) [Time] 26.6 s High 11.7-14.9 [facility] KEPPRA (LEVETIRACETAM)on KEPPRA 30.1 ug/mL Normal 10.0-40.0 [facility] Comment on above: Order Comment: 411.1 Result Comment: Perf ormed at: [facility] [address] [id number] Director: Alpesh Vázquez MD, Phone: [phone] Performed By: #### L 3310.0000, L300.3900 ####[facility] [address] [place], [place], [phone] International normalized rat io (INR) calculationOrdered By: Karon Corrales on 01-12-2025 INR Coag (Bld) [Relative time] 2.3 {INR} [facility] LevetiracetamOrdered By: Carla Corrales on 01-12-2025 levETIRAcetam [Mass/Vol] 30.1 ug/mL 10.0-40.0 [facility] Comment on above: Performed at: [facility] [address] [id number] Director: Alpesh Vázquez MD, Phone: [phone] Prothrombin Time w/INRon INR Coag (PPP) [Relative time] 2.3 {INR} Normal [facility] Comment on above: Order Comment: 411.1 Performed By: #### L 3310.0000, L300.3900 ####[facility] [address] [place], [address] PT Coag (PPP) [Time] 26.1 s High 11.7-14.9 [facility] Comment on above: Order Comment: 411.1 Performed By: #### L 3310.0000, L300.3900 ####[facility] [address] [place], [address] Prothrombin timeOrdered By: Karon Corrales on 01-12-2025 PT Coag (PPP) [Time] 26.1 s High 11.7-14.9 [facility] KEPPRA (LEVETIRACETAM)on KEPPRA 27.6 ug/mL Normal 10.0-40.0 [facility] Comment on above: Order Comment: 411.1 Result Comment: Perf ormed at: - [facility] [id number] Director: Alpesh Vázquez MD, Phone: [phone] Performed By: #### L 3310.0000, L300.3900 ####[facility] [address] [place], [address] International normalized rat io (INR) calculationOrdered By: Karon Corrales on 01-08-2025 INR Coag (Bld) [Relative time] 2.2 {INR} [facility] Prothrombin Time w/INRon INR Coag (PPP) [Relative time] 2.2 {INR} Normal [facility] Comment on above: Order Comment: 411.1 Performed By: #### L 300.3900 ####[facility] [facility] [address] [place], [address] PT Coag (PPP) [Time] 24.5 s High 11.7-14.9 [facility] Comment on above: Order Comment: 411.1 Performed By: #### L 300.3900 ####[facility] [address] [place], [place], [phone] Prothrombin timeOrdered By: Karon Corrales on 01-08-2025 PT Coag (PPP) [Time] 24.5 s High 11.7-14.9 [facility] International normalized rat io (INR) calculationOrdered By: Karon Corrales on 01-06-2025 INR Coag (Bld) [Relative time] 3.2 {INR} [facility] LevetiracetamOrdered By: Carla Corrales on 01-06-2025 levETIRAcetam [Mass/Vol] 27.6 ug/mL 10.0-40.0 [facility] Comment on above: Performed at: [address] [id number] Director: Alpesh Vázquez MD, Phone: [phone] Prothrombin Time w/INRon INR Coag (PPP) [Relative time] 3.2 {INR} Normal [facility] Comment on above: Order Comment: 411.1 Performed By: #### L 3310.0000, L300.3900 ####[facility] [address] [place], [place], [phone] PT Coag (PPP) [Time] 33.1 s High 11.7-14.9 [facility] Comment on above: Order Comment: 411.1 Performed By: #### L 3310.0000, L300.3900 ####[facility] [address] [place], [place], [phone] Prothrombin timeOrdered By: Karon Corrales on 01-06-2025 PT Coag (PPP) [Time] 33.1 s High 11.7-14.9 [facility] International normalized rat io (INR) calculationOrdered By: Karon Corrales on 01-01-2025 INR Coag (Bld) [Relative time] 2.7 {INR} [facility] Prothrombin Time w/INRon INR Coag (PPP) [Relative time] 2.7 {INR} Normal [facility] Comment on above: Order Comment: 411.1 Performed By: #### L 300.3900 ####[facility] [address] [place], [place], [phone] Prothrombin timeOrdered By: Karon Corrales on 01-01-2025 PT Coag (PPP) [Time] 29.1 s High 11.7-14.9 [facility] Comment on above: Order Comment: 411.1 Performed By: #### L 300.3900 ####[facility] [address] [place], [place], [phone] KEPPRA (LEVETIRACETAM)on KEPPRA 31.8 ug/mL Normal 10.0-40.0 [facility] Comment on above: Order Comment: 411-1 Result Comment: Perf ormed at: [facility] [address] [id number] Director: Alpesh Vázquez MD, Phone: [phone] Performed By: #### L 3310.0000, R541.3900 ####[facility] [address] [facility] [phone] International normalized rat io (INR) calculationOrdered By: Carlos Cavazos on 12-29-2024 INR Coag (Bld) [Relative time] 3.3 {INR} [facility] KEPPRA (LEVETIRACETAM)on KEPPRA 33.3 ug/mL Normal 10.0-40.0 [facility] Comment on above: Order Comment: 411.1 Result Comment: Perf ormed at: [email or web address] [id number] Director: Alpesh Vázquez MD, Phone: [phone] Performed By: #### L 3310.0000 ####[facility] [address] [place], [place], [phone] LevetiracetamOrdered By: Ted Cavazos on 12-29-2024 levETIRAcetam [Mass/Vol] 31.8 ug/mL 10.0-40.0 [facility] Comment on above: Performed at: [facility] [address] [id number] Director: Alpesh Vázquez MD, Phone: [phone] Prothrombin Time w/INRon INR Coag (PPP) [Relative time] 3.3 {INR} Normal [facility] Comment on above: Order Comment: 411-1 Performed By: #### L 3310.0000, L300.3900 ####[facility] [address] [place], [place], [phone] Prothrombin timeOrdered By: Carlos Cavazos on 12-29-2024 PT Coag (PPP) [Time] 34.0 s High 11.7-14.9 [facility] Comment on above: Order Comment: 411-1 Performed By: #### L 3310.0000, L300.3900 ####[facility] [address] [place], [place], [address] LevetiracetamOrdered By: Carla Corrales on 12-26-2024 levETIRAcetam [Mass/Vol] 33.3 ug/mL 10.0-40.0 [facility] Comment on above: Performed at: [facility] [employer] [address] [id number] Director: Alpesh Vázquez MD, Phone: [phone] International normalized rat io (INR) calculationOrdered By: Karon Corrales on 12-25-2024 INR Coag (Bld) [Relative time] 2.8 {INR} [facility] Prothrombin Time w/INRon INR Coag (PPP) [Relative time] 2.8 {INR} Normal [facility] Comment on above: Order Comment: 411.1 Performed By: #### L 300.3900 ####[facility] [address] [place], [address] Prothrombin timeOrdered By: Karon Corrales on 12-25-2024 PT Coag (PPP) [Time] 30.0 s High 11.7-14.9 [facility] Comment on above: Order Comment: 411.1 Performed By: #### L 300.3900 ####[facility] [address] [place], [address] Anion gap in Serum or Plasma Ordered By: Carlos Cavazos on 12-24-2024 Anion gap [Moles/Vol] 13 mmol/L 09-18 [facility] BUN/creatinine ratioOrdered By: Carlos Cavazos on 12-24-2024 Urea nitrogen/Creatinine [Mass ratio] 19.2 mg/mg 02-23 [facility] Basic Metabolic Profile (BMP )on 12-24-2024 BUN/CRE 19.2 RATIO Normal 02-23 [facility] Comment on above: Order Comment: 411-1 Performed By: #### L 500.2500, L100.0500 ####[facility] [address] [place], [address] Calcium [Mass/Vol] 8.8 mg/dL Normal 7.6-11.0 [facility] Comment on above: Order Comment: 411-1 Performed By: #### L 500.2500, L100.0500 ####[facility] [address] [place], [address] Chloride [Moles/Vol] 103 mmol/L Normal 98-108 [facility] Comment on above: Order Comment: 411-1 Performed By: #### L 500.2500, L100.0500 ####[facility] [address] [place], [address] CO2 [Moles/Vol] 23.7 mmol/L Normal 21.0-32.0 [facility] Comment on above: Order Comment: 411-1 Performed By: #### L 500.2500, L100.0500 ####[facility] [address] [place], [address] Creatinine [Mass/Vol] 0.82 mg/dL Normal 0.70-1.20 [facility] Comment on above: Order Comment: 411-1 Performed By: #### L 500.2500, L100.0500 ####[facility] [address] [place], [address] GAP 13 Normal 5-15 [facility] Comment on above: Order Comment: 411-1 Performed By: #### L 500.2500, L100.0500 ####[facility] [address] [place], [address] GFR/1.73 sq M.predicted among non-blacks MDRD (S/P/Bld) [Vol rate/Area] 93 mL/min/{1.73_m2} Normal >60 [facility] Comment on above: Order Comment: 411- Result Comment: mL/m in/1.73m2 CKD-EPI Creatinine Equation (2020) Performed By: #### L 500.2500, L100.0500 ####[facility] [address] [place], [address] Glucose [Mass/Vol] 88 mg/dL Normal 70-99 [facility] Comment on above: Order Comment: 411-1 Performed By: #### L 500.2500, L100.0500 ####[facility] [address] [place], [address] Potassium [Moles/Vol] 4.2 mmol/L Normal 3.3-5.1 [facility] Comment on above: Order Comment: 411-1 Performed By: #### L 500.2500, L100.0500 ####[facility] [address] [place], [address] Sodium [Moles/Vol] 139 mmol/L Normal 133-145 [facility] Comment on above: Order Comment: 411-1 Performed By: #### L 500.2500, L100.0500 ####[facility] [address] [place], [address] Urea nitrogen [Mass/Vol] 16 mg/dL Normal 4-19 [facility] Comment on above: Order Comment: 411-1 Performed By: #### L 500.2500, L100.0500 ####[facility] [address] [place], [address] CBC-Complete Blood Cnt No Di ffon 12-24-2024 Erythrocyte distribution width (RBC) [Ratio] 15.4 % High 11.6-14.6 [facility] Comment on above: Order Comment: 411-1 Performed By: #### L 500.2500, L100.0500 ####[facility] [address] [place], [address] Hematocrit (Bld) [Volume fraction] 39.8 % Low 40-54 [facility] Comment on above: Order Comment: 411-1 Performed By: #### L 500.2500, L100.0500 ####[facility] [address] [place], [address] Hemoglobin (Bld) [Mass/Vol] 12.4 g/dL Low 13.0-16.5 [facility] Comment on above: Order Comment: 411-1 Performed By: #### L 500.2500, L100.0500 ####[facility] [address] [place], [address] MCH (RBC) [Entitic mass] 26.6 pg Low 27.0-32.0 [facility] Comment on above: Order Comment: 411-1 Performed By: #### L 500.2500, L100.0500 ####[facility] [address] [place], [address] MCHC (RBC) [Mass/Vol] 31.2 g/dL Low 32-36 [facility] Comment on above: Order Comment: 411-1 Performed By: #### L 500.2500, L100.0500 ####[facility] [address] [place], [address] MCV (RBC) [Entitic vol] 85.4 fL Normal 80-94 [facility] Comment on above: Order Comment: 411-1 Performed By: #### L 500.2500, L100.0500 ####[facility] [address] [place], [address] Platelet mean volume (Bld) [Entitic vol] 10.4 fL Normal 6.2-12.0 [facility] Comment on above: Order Comment: 411-1 Performed By: #### L 500.2500, L100.0500 ####[facility] [address] [place], [address] Platelets (Bld) [#/Vol] 290 10*3/uL Normal 150-450 [facility] Comment on above: Order Comment: 411-1 Performed By: #### L 500.2500, L100.0500 ####[facility] [address] [place], [address] RBC (Bld) [#/Vol] 4.66 10*6/uL Normal 4.6-6.2 [facility] Comment on above: Order Comment: 411-1 Performed By: #### L 500.2500, L100.0500 ####[facility] [address] [place], [address] RDW SD 48.1 fl High 35.1-43.9 [facility] Comment on above: Order Comment: 411-1 Performed By: #### L 500.2500, L100.0500 ####[facility] [address] [place], [address] WBC (Bld) [#/Vol] 16.6 10*3/uL High 4.4-11.0 [facility] Comment on above: Order Comment: 411-1 Performed By: #### L 500.2500, L100.0500 ####[facility] [address] [place], [address] Carbon dioxide, total [Moles /volume] in Central venous bloodOrdered By: Carlos Cavazos on 12-24-2024 CO2 [Moles/Vol] 23.7 mmol/L 21.0-32.0 [facility] Chloride assayOrdered By: Sharif Crouch on 12-24-2024 Chloride [Moles/Vol] 103 mmol/L 98-108 [facility] Erythrocyte distribution wid th ratioOrdered By: Carlos Cavazos on 12-24-2024 Erythrocyte distribution width (RBC) [Ratio] 15.4 % High 11.6-14.6 [facility] Erythrocyte distribution wid th standard deviationOrdered By: Carlos Cavazos on 12-24-2024 Erythrocyte distribution width (RBC) [Ratio] 48.1 fl High 35.1-43.9 [facility] Glomerular filtration rate ( GFR) estimation/1.73 sq m using serum, plasma, or whole bOrdered By: Carlos Cavazos on 12-24-2024 GFR/1.73 sq M.predicted among non-blacks MDRD (S/P/Bld) [Vol rate/Area] 93 mL/min/{1.73_m2} >60 [facility] Comment on above: mL/min/1.73m2 CKD-EP I Creatinine Equation (2020) Hematocrit Auto (Bld) [Volum e fraction]Ordered By: Carlos Cavazos on 12-24-2024 Hematocrit (Bld) [Volume fraction] 39.8 % Low 40-54 [facility] Hemoglobin measurementOrdere d By: Carlos Cavazos on 12-24-2024 Hemoglobin (Bld) [Mass/Vol] 12.4 g/dL Low 13.0-16.5 [facility] MCV (mean corpuscular volume ) determinationOrdered By: Carlos Cavazos on 12-24-2024 MCV (RBC) [Entitic vol] 85.4 fL 80-94 [facility] Mean corpuscular hemoglobin (MCH) determinationOrdered By: Carlos Cavazos on 12-24-2024 MCH (RBC) [Entitic mass] 26.6 pg Low 27.0-32.0 [facility] Mean corpuscular hemoglobin concentration (MCHC) determinationOrdered By: Carlos Cavazos on 12-24-2024 MCHC (RBC) [Mass/Vol] 31.2 g/dL Low 32-36 [facility] Mean platelet volume determi nationOrdered By: Carlos Cavazos on 12-24-2024 Platelet mean volume (Bld) [Entitic vol] 10.4 fL 6.2-12.0 [facility] Platelet countOrdered By: Sharif Crouch on 12-24-2024 Platelets (Bld) [#/Vol] 290 10*3/uL 150-450 [facility] Potassium measurement (mass/ volume)Ordered By: Carlos Cavazos on 12-24-2024 Potassium (Unsp spec) [Mass/Vol] 4.2 mmol/L 3.3-5.1 [facility] RBC Auto (Bld) [#/Vol]Ordere d By: Carlos Cavazos on 12-24-2024 RBC (Bld) [#/Vol] 4.66 10*6/uL 4.6-6.2 [facility] Serum creatinine measurement (mass/volume)Ordered By: Carlos Cavazos on 12-24-2024 Creatinine [Mass/Vol] 0.82 mg/dL 0.70-1.20 [facility] Serum glucose measurement (m ass/volume)Ordered By: Carlos Cavazos on 12-24-2024 Glucose [Mass/Vol] 88 mg/dL 70-99 [facility] Serum or plasma calcium oral urement (mass/volume)Ordered By: Carlos Cavazos on 12-24-2024 Calcium [Mass/Vol] 8.8 mg/dL 7.6-11.0 [facility] Serum or plasma urea nitroge n measurement (mass/volume)Ordered By: Carlos Cavazos on 12-24-2024 Urea nitrogen [Mass/Vol] 16 mg/dL 4-19 [facility] Sodium levelOrdered By: Moe Cavazos on 12-24-2024 Sodium [Moles/Vol] 139 mmol/L 133-145 [facility] White blood cell (WBC) count Ordered By: Carlos Cavazos on 12-24-2024 WBC (Bld) [#/Vol] 16.6 10*3/uL High 4.4-11.0 [facility] International normalized rat io (INR) calculationOrdered By: Karon Corrales on 12-22-2024 INR Coag (Bld) [Relative time] 2.6 {INR} [facility] Prothrombin Time w/INRon INR Coag (PPP) [Relative time] 2.6 {INR} Normal [facility] Comment on above: Order Comment: 411.1 Performed By: #### L 300.3900 ####[facility] [address] [place], [place], [phone] PT Coag (PPP) [Time] 28.8 s High 11.7-14.9 [facility] Comment on above: Order Comment: 411.1 Performed By: #### L 300.3900 ####[facility] [address] [place], [place], [phone]) Prothrombin timeOrdered By: Karon Corrales on 12-22-2024 PT Coag (PPP) [Time] 28.8 s High 11.7-14.9 [facility] International normalized rat io (INR) calculationOrdered By: Karon Corrales on 12-18-2024 INR Coag (Bld) [Relative time] 2.4 {INR} [facility] Prothrombin Time w/INRon INR Coag (PPP) [Relative time] 2.4 {INR} Normal [facility] Comment on above: Order Comment: 411.1 Performed By: #### L 300.3900 ####[facility] [address] [place], [place], [phone] PT Coag (PPP) [Time] 26.7 s High 11.7-14.9 [facility] Comment on above: Order Comment: 411.1 Performed By: #### L 300.3900 ####[facility] [address], [address] Prothrombin timeOrdered By: Karon Corrales on 12-18-2024 PT Coag (PPP) [Time] 26.7 s High 11.7-14.9 [facility] International normalized rat io (INR) calculationOrdered By: Karon Corrales on 12-15-2024 INR Coag (Bld) [Relative time] 2.3 {INR} [facility] Prothrombin Time w/INRon INR Coag (PPP) [Relative time] 2.3 {INR} Normal [facility] Comment on above: Order Comment: 411.1 Performed By: #### L 300.3900 ####[facility] [address] [place], [address] Prothrombin timeOrdered By: Karon Corrales on 12-15-2024 PT Coag (PPP) [Time] 25.7 s High 11.7-14.9 [facility] Comment on above: Order Comment: 411.1 Performed By: #### L 300.3900 ####[facility] [address] [place], [place], [phone] International normalized rat io (INR) calculationOrdered By: Carlos Cavazos on 12-11-2024 INR Coag (Bld) [Relative time] 2.2 {INR} [facility] Prothrombin Time w/INRon INR Coag (PPP) [Relative time] 2.2 {INR} Normal [facility] Comment on above: Order Comment: 411-1 Performed By: #### L 300.3900 ####[facility] [address] [place], [place], [phone] Prothrombin timeOrdered By: Carlos Cavazos on 12-11-2024 PT Coag (PPP) [Time] 24.7 s High 11.7-14.9 [facility] Comment on above: Order Comment: 411-1 Performed By: #### L 300.3900 ####[facility] [address] [place], [place], [phone]) International normalized rat io (INR) calculationOrdered By: Karon Corrales on 12-08-2024 INR Coag (Bld) [Relative time] 2.2 {INR} [facility] Prothrombin Time w/INRon INR Coag (PPP) [Relative time] 2.2 {INR} Normal [facility] Comment on above: Order Comment: 411.1 Performed By: #### L 300.3900 ####[facility] [address] [place], [address] PT Coag (PPP) [Time] 25.0 s High 11.7-14.9 [facility] Comment on above: Order Comment: 411.1 Performed By: #### L 300.3900 ####[facility] [address] [place], [address] Prothrombin timeOrdered By: Karon Corrales on 12-08-2024 PT Coag (PPP) [Time] 25.0 s High 11.7-14.9 [facility] International normalized rat io (INR) calculationOrdered By: Karon Corrales on 12-04-2024 INR Coag (Bld) [Relative time] 2.3 {INR} [facility] Prothrombin Time w/INRon INR Coag (PPP) [Relative time] 2.3 {INR} Normal [facility] Comment on above: Order Comment: 411.1 Performed By: #### L 300.3900 ####[facility] [address] [place], [address] PT Coag (PPP) [Time] 25.9 s High 11.7-14.9 [facility] Comment on above: Order Comment: 411.1 Performed By: #### L 300.3900 ####[facility] [address] [place], [place], [phone] Prothrombin timeOrdered By: Karon Corrales on 12-04-2024 PT Coag (PPP) [Time] 25.9 s High 11.7-14.9 [facility] International normalized rat io (INR) calculationOrdered By: Karon Corrales on 12-02-2024 INR Coag (Bld) [Relative time] 2.5 {INR} [facility] Prothrombin Time w/INRon INR Coag (PPP) [Relative time] 2.5 {INR} Normal [facility] Comment on above: Order Comment: 411.1 Performed By: #### L 300.3900 ####[facility] [address] [place], [place], [phone] PT Coag (PPP) [Time] 27.3 s High 11.7-14.9 [facility] Comment on above: Order Comment: 411.1 Performed By: #### L 300.3900 ####[facility] [address] [place], [place], [phone] Prothrombin timeOrdered By: Karon Corrales on 12-02-2024 PT Coag (PPP) [Time] 27.3 s High 11.7-14.9 [facility] International normalized rat io (INR) calculationOrdered By: Carlos Cavazos on 12-01-2024 INR Coag (Bld) [Relative time] 2.3 {INR} [facility] Prothrombin Time w/INRon INR Coag (PPP) [Relative time] 2.3 {INR} Normal [facility] Comment on above: Order Comment: 411-1 Performed By: #### L 300.3900 ####[facility] [address] [place], [place], [phone] PT Coag (PPP) [Time] 26.0 s High 11.7-14.9 [facility] Comment on above: Order Comment: 411-1 Performed By: #### L 300.3900 ####[facility] [address] [place], [place], [phone] Prothrombin timeOrdered By: Carlos Cavazos on 12-01-2024 PT Coag (PPP) [Time] 26.0 s High 11.7-14.9 [facility] International normalized rat io (INR) calculationOrdered By: Carlos Cavazos on 11-28-2024 INR Coag (Bld) [Relative time] 3.1 {INR} [facility] Prothrombin Time w/INRon INR Coag (PPP) [Relative time] 3.1 {INR} Normal [facility] Comment on above: Order Comment: 411-1 Performed By: #### L 300.3900 ####[facility] [address] [place], [place], [phone]) PT Coag (PPP) [Time] 32.8 s High 11.7-14.9 [facility] Comment on above: Order Comment: 411-1 Performed By: #### L 300.3900 ####[facility] [address] [place], [place], [phone] Prothrombin timeOrdered By: Carlos Cavazos on 11-28-2024 PT Coag (PPP) [Time] 32.8 s High 11.7-14.9 [facility] International normalized rat io (INR) calculationOrdered By: Karon Corrales on 11-27-2024 INR Coag (Bld) [Relative time] 3.3 {INR} [facility] Prothrombin Time w/INRon INR Coag (PPP) [Relative time] 3.3 {INR} Normal [facility] Comment on above: Order Comment: 411.1 Performed By: #### L 300.3900 ####[facility] [address] [place], [place], [phone]) PT Coag (PPP) [Time] 34.3 s High 11.7-14.9 [facility] Comment on above: Order Comment: 411.1 Performed By: #### L 300.3900 ####[facility] [address] [place], [place], [phone] Prothrombin timeOrdered By: Karon Corrales on 11-27-2024 PT Coag (PPP) [Time] 34.3 s High 11.7-14.9 [facility] International normalized rat io (INR) calculationOrdered By: Karon Corrales on 11-24-2024 INR Coag (Bld) [Relative time] 2.8 {INR} [facility] Prothrombin Time w/INRon INR Coag (PPP) [Relative time] 2.8 {INR} Normal [facility] Comment on above: Order Comment: 411.2 Performed By: #### L 300.3900 ####[facility] [address] [place], [place], [phone] PT Coag (PPP) [Time] 30.0 s High 11.7-14.9 [facility] Comment on above: Order Comment: 411.2 Performed By: #### L 300.3900 ####[facility] [address] [place], [place], [address] Prothrombin timeOrdered By: Karon Corrales on 11-24-2024 PT Coag (PPP) [Time] 30.0 s High 11.7-14.9 [facility] International normalized rat io (INR) calculationOrdered By: Karon Corrales on 11-20-2024 INR Coag (Bld) [Relative time] 3.0 {INR} [facility] Prothrombin Time w/INRon INR Coag (PPP) [Relative time] 3.0 {INR} Normal [facility] Comment on above: Order Comment: 411.2 Performed By: #### L 300.3900 ####[facility] [address] [place], [place], [phone] PT Coag (PPP) [Time] 32.0 s High 11.7-14.9 [facility] Comment on above: Order Comment: 411.2 Performed By: #### L 300.3900 ####[facility] [address] [place], [place], [phone]) Prothrombin timeOrdered By: Karno Corrales on 11-20-2024 PT Coag (PPP) [Time] 32.0 s High 11.7-14.9 [facility] International normalized rat io (INR) calculationOrdered By: Karon Corrales on 11-17-2024 INR Coag (Bld) [Relative time] 2.9 {INR} [facility] Prothrombin Time w/INRon INR Coag (PPP) [Relative time] 2.9 {INR} Normal [facility] Comment on above: Order Comment: 411.2 Performed By: #### L 300.3900 ####[facility] [address], [address] PT Coag (PPP) [Time] 30.7 s High 11.7-14.9 [facility] Comment on above: Order Comment: 411.2 Performed By: #### L 300.3900 ####[facility] [address], [address] Prothrombin timeOrdered By: Karon Corrales on 11-17-2024 PT Coag (PPP) [Time] 30.7 s High 11.7-14.9 [facility] International normalized rat io (INR) calculationOrdered By: Karon Corrales on 11-13-2024 INR Coag (Bld) [Relative time] 2.2 {INR} [facility] Prothrombin Time w/INRon INR Coag (PPP) [Relative time] 2.2 {INR} Normal [facility] Comment on above: Order Comment: 411.2 Performed By: #### L 300.3900 ####[facility] [address] [place], [address] PT Coag (PPP) [Time] 24.7 s High 11.7-14.9 [facility] Comment on above: Order Comment: 411.2 Performed By: #### L 300.3900 ####[facility] [address] [place], [place], [phone] Prothrombin timeOrdered By: Karon Corrales on 11-13-2024 PT Coag (PPP) [Time] 24.7 s High 11.7-14.9 [facility] International normalized rat io (INR) calculationOrdered By: Karon Corrales on 11-10-2024 INR Coag (Bld) [Relative time] 2.6 {INR} [facility] Prothrombin Time w/INRon INR Coag (PPP) [Relative time] 2.6 {INR} Normal [facility] Comment on above: Order Comment: 411.2 Performed By: #### L 300.3900 ####[facility] [address] [place], [place], [phone] PT Coag (PPP) [Time] 28.7 s High 11.7-14.9 [facility] Comment on above: Order Comment: 411.2 Performed By: #### L 300.3900 ####[facility] [address] [place], [place], [phone] Prothrombin timeOrdered By: Karon Corrales on 11-10-2024 PT Coag (PPP) [Time] 28.7 s High 11.7-14.9 [facility] International normalized rat io (INR) calculationOrdered By: Karon Corrales on 11-06-2024 INR Coag (Bld) [Relative time] 3.1 {INR} [facility] Prothrombin Time w/INRon INR Coag (PPP) [Relative time] 3.1 {INR} Normal [facility] Comment on above: Order Comment: 411.2 Performed By: #### L 300.3900 ####[facility] [address] [place], [place], [phone] Prothrombin timeOrdered By: Karon Corrales on 11-06-2024 PT Coag (PPP) [Time] 33.0 s High 11.7-14.9 [facility] Comment on above: Order Comment: 411.2 Performed By: #### L 300.3900 ####[facility] [address] [place], [place], [phone] International normalized rat io (INR) calculationOrdered By: Carlos Cavazos on 11-03-2024 INR Coag (Bld) [Relative time] 3.0 {INR} [facility] Prothrombin Time w/INRon INR Coag (PPP) [Relative time] 3.0 {INR} Normal [facility] Comment on above: Order Comment: 411-2 Performed By: #### L 300.3900 ####[facility] [address] [place], [address] PT Coag (PPP) [Time] 31.4 s High 11.7-14.9 [facility] Comment on above: Order Comment: 411-2 Performed By: #### L 300.3900 ####[facility] [address] [place], [place], [phone] Prothrombin timeOrdered By: Carlos Cavazos on 11-03-2024 PT Coag (PPP) [Time] 31.4 s High 11.7-14.9 [facility] International normalized rat io (INR) calculationOrdered By: Karon Corrales on 10-30-2024 INR Coag (Bld) [Relative time] 2.4 {INR} [facility] Prothrombin Time w/INRon INR Coag (PPP) [Relative time] 2.4 {INR} Normal [facility] Comment on above: Performed By: #### L 300.3900 ####[facility] [address] [place], [address] PT Coag (PPP) [Time] 26.3 s High 11.7-14.9 [facility] Comment on above: Performed By: #### L 300.3900 ####[facility] [address] [place], [place], [phone] Prothrombin timeOrdered By: Karon Corrales on 10-30-2024 PT Coag (PPP) [Time] 26.3 s High 11.7-14.9 [facility] International normalized rat io (INR) calculationOrdered By: Karon Corrales on 10-27-2024 INR Coag (Bld) [Relative time] 2.2 {INR} [facility] Prothrombin Time w/INRon INR Coag (PPP) [Relative time] 2.2 {INR} Normal [facility] Comment on above: Order Comment: 411.2 Performed By: #### L 300.3900 ####[facility] [address] [place], [place], [phone] Prothrombin timeOrdered By: Karon Corrales on 10-27-2024 PT Coag (PPP) [Time] 24.5 s High 11.7-14.9 [facility] Comment on above: Order Comment: 411.2 Performed By: #### L 300.3900 ####[facility] [address] [place], [place], [phone] International normalized rat io (INR) calculationOrdered By: Karon Corrales on 10-23-2024 INR Coag (Bld) [Relative time] 2.5 {INR} [facility] Prothrombin Time w/INRon INR Coag (PPP) [Relative time] 2.5 {INR} Normal [facility] Comment on above: Order Comment: 411.2 Performed By: #### L 300.3900 ####[facility] [address] [place], [place], [phone] PT Coag (PPP) [Time] 27.9 s High 11.7-14.9 [facility] Comment on above: Order Comment: 411.2 Performed By: #### L 300.3900 ####[facility] [address] [place], [place], [phone] Prothrombin timeOrdered By: Karon Corrales on 10-23-2024 PT Coag (PPP) [Time] 27.9 s High 11.7-14.9 [facility] International normalized rat io (INR) calculationOrdered By: Karon Corrales on 10-20-2024 INR Coag (Bld) [Relative time] 3.1 {INR} [facility] Prothrombin Time w/INRon INR Coag (PPP) [Relative time] 3.1 {INR} Normal [facility] Comment on above: Order Comment: 411.2 Performed By: #### L 300.3900 ####[facility] [address] [place], [place], [phone] PT Coag (PPP) [Time] 32.8 s High 11.7-14.9 [facility] Comment on above: Order Comment: 411.2 Performed By: #### L 300.3900 ####[facility] [address] [place], [place], [phone] Prothrombin timeOrdered By: Karon Corrales on 10-20-2024 PT Coag (PPP) [Time] 32.8 s High 11.7-14.9 [facility] International normalized rat io (INR) calculationOrdered By: Karon Corrales on 10-16-2024 INR Coag (Bld) [Relative time] 2.8 {INR} [facility] Prothrombin Time w/INRon INR Coag (PPP) [Relative time] 2.8 {INR} Normal [facility] Comment on above: Order Comment: 411.2 Performed By: #### L 300.3900 ####[facility] [address] [place], [phone] PT Coag (PPP) [Time] 30.4 s High 11.7-14.9 [facility] Comment on above: Order Comment: 411.2 Performed By: #### L 300.3900 ####[facility] [address] [place], [place], [phone] Prothrombin timeOrdered By: Karon Corrales on 10-16-2024 PT Coag (PPP) [Time] 30.4 s High 11.7-14.9 [facility] International normalized rat io (INR) calculationOrdered By: Carlos Cavazos on 10-13-2024 INR Coag (Bld) [Relative time] 1.9 {INR} [facility] Prothrombin Time w/INRon INR Coag (PPP) [Relative time] 1.9 {INR} Normal [facility] Comment on above: Order Comment: 411-2 Performed By: #### L 300.3900 ####[facility] [address] [place], [place], [phone] PT Coag (PPP) [Time] 22.4 s High 11.7-14.9 [facility] Comment on above: Order Comment: 411-2 Performed By: #### L 300.3900 ####[facility] [address] [place], [place], [phone] Prothrombin timeOrdered By: Carlos Cavazos on 10-13-2024 PT Coag (PPP) [Time] 22.4 s High 11.7-14.9 [facility] International normalized rat io (INR) calculationOrdered By: Karon Corrales on 10-09-2024 INR Coag (Bld) [Relative time] 3.0 {INR} [facility] Prothrombin Time w/INRon INR Coag (PPP) [Relative time] 3.0 {INR} Normal [facility] Comment on above: Order Comment: 411.2 Performed By: #### L 300.3900 ####[facility] [address] [place], [place], [phone] Prothrombin timeOrdered By: Karon Corrales on 10-09-2024 PT Coag (PPP) [Time] 31.8 s High 11.7-14.9 [facility] Comment on above: Order Comment: 411.2 Performed By: #### L 300.3900 ####[facility] [address] [place], [place], [phone] International normalized rat io (INR) calculationOrdered By: Carlos Cavazos on 10-06-2024 INR Coag (Bld) [Relative time] 2.7 {INR} [facility] Prothrombin Time w/INRon INR Coag (PPP) [Relative time] 2.7 {INR} Normal [facility] Comment on above: Order Comment: 411-2 Performed By: #### L 300.3900 ####[facility] [address] [place], [place], [phone] PT Coag (PPP) [Time] 29.6 s High 11.7-14.9 [facility] Comment on above: Order Comment: 411-2 Performed By: #### L 300.3900 ####[facility] [address] [place], [place], [phone] Prothrombin timeOrdered By: Carlos Cavazos on 10-06-2024 PT Coag (PPP) [Time] 29.6 s High 11.7-14.9 [facility] International normalized rat io (INR) calculationOrdered By: Karon Corrales on 10-02-2024 INR Coag (Bld) [Relative time] 2.3 {INR} [facility] Prothrombin Time w/INRon INR Coag (PPP) [Relative time] 2.3 {INR} Normal [facility] Comment on above: Order Comment: 411.2 Performed By: #### L 300.3900 ####[facility] [address] [place], [phone] PT Coag (PPP) [Time] 26.0 s High 11.7-14.9 [facility] Comment on above: Order Comment: 411.2 Performed By: #### L 300.3900 ####[facility] [address] [place], [place], [phone] Prothrombin timeOrdered By: Karon Corrales on 10-02-2024 PT Coag (PPP) [Time] 26.0 s High 11.7-14.9 [facility] International normalized rat io (INR) calculationOrdered By: Karon Corrales on 09-30-2024 INR Coag (Bld) [Relative time] 3.1 {INR} [facility] Prothrombin Time w/INRon INR Coag (PPP) [Relative time] 3.1 {INR} Normal [facility] Comment on above: Order Comment: 411.2 Performed By: #### L 300.3900 ####[facility] [address] [place], [place], [phone] PT Coag (PPP) [Time] 32.6 s High 11.7-14.9 [facility] Comment on above: Order Comment: 411.2 Performed By: #### L 300.3900 ####[facility] [address] [place], [place], [phone] Prothrombin timeOrdered By: Karon Corrales on 09-30-2024 PT Coag (PPP) [Time] 32.6 s High 11.7-14.9 [facility] International normalized rat io (INR) calculationOrdered By: Karon Corrales on 09-25-2024 INR Coag (Bld) [Relative time] 2.4 {INR} [facility] Prothrombin Time w/INRon INR Coag (PPP) [Relative time] 2.4 {INR} Normal [facility] Comment on above: Order Comment: 411.2 Performed By: #### L 300.3900 ####[facility] [address] [place], [place], [phone] Prothrombin timeOrdered By: Karon Corrales on 09-25-2024 PT Coag (PPP) [Time] 26.7 s High 11.7-14.9 [facility] Comment on above: Order Comment: 411.2 Performed By: #### L 300.3900 ####[facility] [address] [place], [place], [phone] International normalized rat io (INR) calculationOrdered By: Karon Corrales on 09-22-2024 INR Coag (Bld) [Relative time] 2.5 {INR} [facility] Prothrombin Time w/INRon INR Coag (PPP) [Relative time] 2.5 {INR} Normal [facility] Comment on above: Order Comment: 411.2 Performed By: #### L 300.3900 ####[facility] [address] [place], [address] Prothrombin timeOrdered By: Karon Corrales on 09-22-2024 PT Coag (PPP) [Time] 27.4 s High 11.7-14.9 [facility] Comment on above: Order Comment: 411.2 Performed By: #### L 300.3900 ####[facility] [address] [place], [place], [phone] International normalized rat io (INR) calculationOrdered By: Karon Corrales on 09-18-2024 INR Coag (Bld) [Relative time] 2.2 {INR} [facility] Prothrombin Time w/INRon INR Coag (PPP) [Relative time] 2.2 {INR} Normal [facility] Comment on above: Order Comment: 411.2 Performed By: #### L 300.3900 ####[facility] [address] [place], [place], [phone] PT Coag (PPP) [Time] 25.1 s High 11.7-14.9 [facility] Comment on above: Order Comment: 411.2 Performed By: #### L 300.3900 ####[facility] [address] [place], [place], [phone] Prothrombin timeOrdered By: Karon Corrales on 09-18-2024 PT Coag (PPP) [Time] 25.1 s High 11.7-14.9 [facility] International normalized rat io (INR) calculationOrdered By: Carlos Cavazos on 09-15-2024 INR Coag (Bld) [Relative time] 2.4 {INR} [facility] Prothrombin Time w/INRon INR Coag (PPP) [Relative time] 2.4 {INR} Normal [facility] Comment on above: Order Comment: 411-2 Performed By: #### L 300.3900 ####[facility] [address] [place], [place], [phone] Prothrombin timeOrdered By: Carlos Cavazos on 09-15-2024 PT Coag (PPP) [Time] 26.3 s High 11.7-14.9 [facility] Comment on above: Order Comment: 411-2 Performed By: #### L 300.3900 ####[facility] [address] [place], [place], [phone] International normalized rat io (INR) calculationOrdered By: Karon Corrales on 09-11-2024 INR Coag (Bld) [Relative time] 2.0 {INR} [facility] Prothrombin Time w/INRon INR Coag (PPP) [Relative time] 2.0 {INR} Normal [facility] Comment on above: Order Comment: 411.2 Performed By: #### L 300.3900 ####[facility] [address] [place], [place], [phone] PT Coag (PPP) [Time] 22.9 s High 11.7-14.9 [facility] Comment on above: Order Comment: 411.2 Performed By: #### L 300.3900 ####[facility] [address] [place], [place], [phone] Prothrombin timeOrdered By: Karon Corrales on 09-11-2024 PT Coag (PPP) [Time] 22.9 s High 11.7-14.9 [facility] International normalized rat io (INR) calculationOrdered By: Karon Corrales on 09-08-2024 INR Coag (Bld) [Relative time] 2.0 {INR} [facility] Prothrombin Time w/INRon INR Coag (PPP) [Relative time] 2.0 {INR} Normal [facility] Comment on above: Order Comment: 411.2 Performed By: #### L 300.3900 ####[facility] [address] [place], [place], [phone] PT Coag (PPP) [Time] 22.8 s High 11.7-14.9 [facility] Comment on above: Order Comment: 411.2 Performed By: #### L 300.3900 ####[facility] [address] [place], [place], [phone] Prothrombin timeOrdered By: Karon Corrales on 09-08-2024 PT Coag (PPP) [Time] 22.8 s High 11.7-14.9 [facility] International normalized rat io (INR) calculationOrdered By: Carlos Cavazos on 09-04-2024 INR Coag (Bld) [Relative time] 1.7 {INR} [facility] Prothrombin Time w/INRon INR Coag (PPP) [Relative time] 1.7 {INR} Normal [facility] Comment on above: Order Comment: 411-2 Performed By: #### L 300.3900 ####[facility] [address] [place], [address] PT Coag (PPP) [Time] 20.8 s High 11.7-14.9 [facility] Comment on above: Order Comment: 411-2 Performed By: #### L 300.3900 ####[facility] [address] [place], [place], [phone] Prothrombin timeOrdered By: Carlos Cavazos on 09-04-2024 PT Coag (PPP) [Time] 20.8 s High 11.7-14.9 [facility] International normalized rat io (INR) calculationOrdered By: Carlos Cavazos on 09-01-2024 INR Coag (Bld) [Relative time] 2.9 {INR} [facility] Prothrombin Time w/INRon INR Coag (PPP) [Relative time] 2.9 {INR} Normal [facility] Comment on above: Order Comment: 411-2 Performed By: #### L 300.3900 ####[facility] [address] [place], [address] PT Coag (PPP) [Time] 30.7 s High 11.7-14.9 [facility] Comment on above: Order Comment: 411-2 Performed By: #### L 300.3900 ####[facility] [address] [place], [address] Prothrombin timeOrdered By: Carlos Cavazso on 09-01-2024 PT Coag (PPP) [Time] 30.7 s High 11.7-14.9 [facility] International normalized rat io (INR) calculationOrdered By: Carlos Cavazos on 08-28-2024 INR Coag (Bld) [Relative time] 2.4 {INR} [facility] Prothrombin Time w/INRon INR Coag (PPP) [Relative time] 2.4 {INR} Normal [facility] Comment on above: Order Comment: 411-2 Performed By: #### L 300.3900 ####[facility] [address] [place], [address] Prothrombin timeOrdered By: Carlos Cavazos on 08-28-2024 PT Coag (PPP) [Time] 26.7 s High 11.7-14.9 [facility] Comment on above: Order Comment: 411-2 Performed By: #### L 300.3900 ####[facility] [address] [place], [address] International normalized rat io (INR) calculationOrdered By: Karon Corrales on 08-25-2024 INR Coag (Bld) [Relative time] 1.8 {INR} [facility] Prothrombin Time w/INRon INR Coag (PPP) [Relative time] 1.8 {INR} Normal [facility] Comment on above: Order Comment: 411.2 Performed By: #### L 300.3900 ####[facility] [address] [place], [address] PT Coag (PPP) [Time] 21.6 s High 11.7-14.9 [facility] Comment on above: Order Comment: 411.2 Performed By: #### L 300.3900 ####[facility] [address] [place], [place], [phone] Prothrombin timeOrdered By: Karon Corrales on 08-25-2024 PT Coag (PPP) [Time] 21.6 s High 11.7-14.9 [facility] International normalized rat io (INR) calculationOrdered By: Karon Corrales on 08-21-2024 INR Coag (Bld) [Relative time] 1.7 {INR} [facility] PSA, total screeningOrdered By: Karon Corrales on 08-21-2024 Prostate Specific Antigen Screen 0.52 ng/mL 0.02-4.00 [facility] Comment on above: This test [...] SCREEN 0.52 ng/mL Normal 0.02-4.00 [facility] Comment on above: Order Comment: 411.2 Result Comment: This test was performed using the [employer] tPSAmethod. Measured values of a patient??sample can varydepending on the testing procedure used. PSA valuesdetermined on patient samples by different testingprocedures cannot be used interchangeably. If there is achange in PSA assays while monitoring therapy, sequentialtesting should be performed to confirm baseline values. Performed By: #### L 501.9910, L300.3900 ####[facility] [address], [address] Prothrombin Time w/INRon INR Coag (PPP) [Relative time] 1.7 {INR} Normal [facility] Comment on above: Order Comment: 411.2 Performed By: #### L 501.9910, L300.3900 ####[facility] [address] [place], [address] Prothrombin timeOrdered By: Karon Corrales on 08-21-2024 PT Coag (PPP) [Time] 20.1 s High 11.7-14.9 [facility] Comment on above: Order Comment: 411.2 Performed By: #### L 501.9910, L300.3900 ####[facility] [address] [place], [address] International normalized rat io (INR) calculationOrdered By: Karon Corrales on 08-18-2024 INR Coag (Bld) [Relative time] 3.0 {INR} [facility] Prothrombin Time w/INRon INR Coag (PPP) [Relative time] 3.0 {INR} Normal [facility] Comment on above: Order Comment: 411.2 Performed By: #### L 300.3900 ####[facility] [address] [place], [place], [phone] PT Coag (PPP) [Time] 31.4 s High 11.7-14.9 [facility] Comment on above: Order Comment: 411.2 Performed By: #### L 300.3900 ####[facility] [address] [place], [place], [phone] Prothrombin timeOrdered By: Karon Corrales on 08-18-2024 PT Coag (PPP) [Time] 31.4 s High 11.7-14.9 [facility] International normalized rat io (INR) calculationOrdered By: Karon Corrales on 08-14-2024 INR Coag (Bld) [Relative time] 2.4 {INR} [facility] Prothrombin Time w/INRon INR Coag (PPP) [Relative time] 2.4 {INR} Normal [facility] Comment on above: Order Comment: 411.2 Performed By: #### L 300.3900 ####[facility] [address] [place], [place], [phone] PT Coag (PPP) [Time] 26.6 s High 11.7-14.9 [facility] Comment on above: Order Comment: 411.2 Performed By: #### L 3003901 ####[facility] [address] [place], [place], [phone] Prothrombin timeOrdered By: Karon Corrales on 08-14-2024 PT Coag (PPP) [Time] 26.6 s High 11.7-14.9 [facility] International normalized rat io (INR) calculationOrdered By: Karon Corrales on 08-11-2024 INR Coag (Bld) [Relative time] 3.1 {INR} [facility] Prothrombin Time w/INRon INR Coag (PPP) [Relative time] 3.1 {INR} Normal [facility] Comment on above: Order Comment: 411.2 Performed By: #### L 300.3906 ####[facility] [address] [place], [address] PT Coag (PPP) [Time] 32.4 s High 11.7-14.9 [facility] Comment on above: Order Comment: 411.2 Performed By: #### L 300.3900 ####[facility] [address] [place], [address] Prothrombin timeOrdered By: Karon Corrales on 08-11-2024 PT Coag (PPP) [Time] 32.4 s High 11.7-14.9 [facility] International normalized rat io (INR) calculationOrdered By: Carlos Cavazos on 08-07-2024 INR Coag (Bld) [Relative time] 2.8 {INR} [facility] Prothrombin Time w/INRon INR Coag (PPP) [Relative time] 2.8 {INR} Normal [facility] Comment on above: Order Comment: 411-2 Performed By: #### L 300.3900 ####[facility] [address] [place], [address] PT Coag (PPP) [Time] 30.3 s High 11.7-14.9 [facility] Comment on above: Order Comment: 411-2 Performed By: #### L 300.3900 ####[facility] [address] [place], [address] Prothrombin timeOrdered By: Carlos Cavazos on 08-07-2024 PT Coag (PPP) [Time] 30.3 s High 11.7-14.9 [facility] International normalized rat io (INR) calculationOrdered By: Carlos Cavazos on 08-04-2024 INR Coag (Bld) [Relative time] 1.9 {INR} [facility] Prothrombin Time w/INRon INR Coag (PPP) [Relative time] 1.9 {INR} Normal [facility] Comment on above: Order Comment: 411-2 Performed By: #### L 300.3900 ####[facility] [address] [place], [phone] PT Coag (PPP) [Time] 22.1 s High 11.7-14.9 [facility] Comment on above: Order Comment: 411-2 Performed By: #### L 300.3900 ####[facility] [address] [place], [address] Prothrombin timeOrdered By: Carlos Cavazos on 08-04-2024 PT Coag (PPP) [Time] 22.1 s High 11.7-14.9 [facility] International normalized rat io (INR) calculationOrdered By: Karon Corrales on 07-31-2024 INR Coag (Bld) [Relative time] 3.2 {INR} [facility] Prothrombin Time w/INRon INR Coag (PPP) [Relative time] 3.2 {INR} Normal [facility] Comment on above: Order Comment: 411.2 Performed By: #### L 300.3900 ####[facility] [address] [place], [address] PT Coag (PPP) [Time] 33.5 s High 11.7-14.9 [facility] Comment on above: Order Comment: 411.2 Performed By: #### L 300.3900 ####[facility] [address] [place], [address] Prothrombin timeOrdered By: Karon Corrales on 07-31-2024 PT Coag (PPP) [Time] 33.5 s High 11.7-14.9 [facility] International normalized rat io (INR) calculationOrdered By: Karon Corrales on 07-28-2024 INR Coag (Bld) [Relative time] 2.7 {INR} [facility] Prothrombin Time w/INRon INR Coag (PPP) [Relative time] 2.7 {INR} Normal [facility] Comment on above: Order Comment: 411.2 Performed By: #### L 300.3900 ####[facility] [address] [place], [address] PT Coag (PPP) [Time] 29.6 s High 11.7-14.9 [facility] Comment on above: Order Comment: 411.2 Performed By: #### L 300.3900 ####[facility] [address] [place], [address] Prothrombin timeOrdered By: Karon Corrales on 07-28-2024 PT Coag (PPP) [Time] 29.6 s High 11.7-14.9 [facility] International normalized rat io (INR) calculationOrdered By: Carlos Cavazos on 07-25-2024 INR Coag (Bld) [Relative time] 3.0 {INR} [facility] Prothrombin Time w/INRon INR Coag (PPP) [Relative time] 3.0 {INR} Normal [facility] Comment on above: Order Comment: 411-2 Performed By: #### L 300.3900 ####[facility] [address] [place], [address] Prothrombin timeOrdered By: Carlos Cavazos on 07-25-2024 PT Coag (PPP) [Time] 32.1 s High 11.7-14.9 [facility] Comment on above: Order Comment: 411-2 Performed By: #### L 300.3900 ####[facility] [address] [place], [address] International normalized rat io (INR) calculationOrdered By: Karon Corrales on 07-24-2024 INR Coag (Bld) [Relative time] 3.4 {INR} [facility] Prothrombin Time w/INRon INR Coag (PPP) [Relative time] 3.4 {INR} Normal [facility] Comment on above: Order Comment: 411.2 Performed By: #### L 300.3900 ####[facility] [address] [place], [place], [phone] Prothrombin timeOrdered By: Karon Corrales on 07-24-2024 PT Coag (PPP) [Time] 35.4 s High 11.7-14.9 [facility] Comment on above: Order Comment: 411.2 Performed By: #### L 300.3900 ####[facility] [address] [place], [place], [phone] International normalized rat io (INR) calculationOrdered By: Karon Corrales on 07-21-2024 INR Coag (Bld) [Relative time] 1.6 {INR} [facility] Prothrombin Time w/INRon INR Coag (PPP) [Relative time] 1.6 {INR} Normal [facility] Comment on above: Order Comment: 411.2 Performed By: #### L 300.3900 ####[facility] [address] [place], [place], [phone] PT Coag (PPP) [Time] 19.6 s High 11.7-14.9 [facility] Comment on above: Order Comment: 411.2 Performed By: #### L 300.3900 ####[facility] [address] [place], [place], [phone] Prothrombin timeOrdered By: Karon Corrales on 07-21-2024 PT Coag (PPP) [Time] 19.6 s High 11.7-14.9 [facility] International normalized rat io (INR) calculationOrdered By: Karon Corrales on 07-17-2024 INR Coag (Bld) [Relative time] 2.9 {INR} [facility] Prothrombin Time w/INRon INR Coag (PPP) [Relative time] 2.9 {INR} Normal [facility] Comment on above: Order Comment: 411.2 Performed By: #### L 300.3900 ####[facility] [address] [place], [address] PT Coag (PPP) [Time] 31.1 s High 11.7-14.9 [facility] Comment on above: Order Comment: 411.2 Performed By: #### L 300.3900 ####[facility] [address] [place], [address] Prothrombin timeOrdered By: Karon Corrales on 07-17-2024 PT Coag (PPP) [Time] 31.1 s High 11.7-14.9 [facility] International normalized rat io (INR) calculationOrdered By: Carlos Cavazos on 07-14-2024 INR Coag (Bld) [Relative time] 2.5 {INR} [facility] Prothrombin Time w/INRon INR Coag (PPP) [Relative time] 2.5 {INR} Normal [facility] Comment on above: Order Comment: 411-2 Performed By: #### L 300.3900 ####[facility] [address] [place], [address] PT Coag (PPP) [Time] 27.5 s High 11.7-14.9 [facility] Comment on above: Order Comment: 411-2 Performed By: #### L 300.3900 ####[facility] [address] [place], [address] Prothrombin timeOrdered By: Carlos Cavazos on 07-14-2024 PT Coag (PPP) [Time] 27.5 s High 11.7-14.9 [facility] International normalized rat io (INR) calculationOrdered By: Carlos Cavazos on 07-11-2024 INR Coag (Bld) [Relative time] 2.5 {INR} [facility] Prothrombin Time w/INRon INR Coag (PPP) [Relative time] 2.5 {INR} Normal [facility] Comment on above: Performed By: #### L 300.3900 ####[facility] [address] [place], [address] PT Coag (PPP) [Time] 27.7 s High 11.7-14.9 [facility] Comment on above: Performed By: #### L 300.3900 ####[facility] [address] [place], [address] Prothrombin timeOrdered By: Carlos Cavazos on 07-11-2024 PT Coag (PPP) [Time] 27.7 s High 11.7-14.9 [facility] Prothrombin Time w/INRon INR Normal [facility] Comment on above: Order Comment: 411.2 Result Comment: QNS TUBE NOT FILLED Performed By: #### L 300.3900 ####[facility] [address] [place], [address] PROTIME Normal 11.7-14.9 [facility] Comment on above: Order Comment: 411.2 Result Comment: QNS TUBE NOT FILLED Performed By: #### L 300.3900 ####[facility] [address] [place], [address] International normalized rat io (INR) calculationOrdered By: Kvng Crisostomo on 07-07-2024 INR Coag (Bld) [Relative time] 2.5 {INR} [facility] Prothrombin Time w/INRon INR Coag (PPP) [Relative time] 2.5 {INR} Normal [facility] Comment on above: Order Comment: 411.2 Performed By: #### L 300.3900 ####[facility] [address] [place], [address] PT Coag (PPP) [Time] 27.2 s High 11.7-14.9 [facility] Comment on above: Order Comment: 411.2 Performed By: #### L 300.3900 ####[facility] [address] [place], [place], [phone] Prothrombin timeOrdered By: Kvng Crisostomo on 07-07-2024 PT Coag (PPP) [Time] 27.2 s High 11.7-14.9 [facility] International normalized rat io (INR) calculationOrdered By: Kvng Crisostomo on 07-03-2024 INR Coag (Bld) [Relative time] 2.5 {INR} [facility] Prothrombin Time w/INRon INR Coag (PPP) [Relative time] 2.5 {INR} Normal [facility] Comment on above: Order Comment: 411.2 Performed By: #### L 300.3900 ####[facility] [address] [place], [place], [phone] PT Coag (PPP) [Time] 27.2 s High 11.7-14.9 [facility] Comment on above: Order Comment: 411.2 Performed By: #### L 300.3900 ####[facility] [address] [place], [place], [phone] Prothrombin timeOrdered By: Kvng Crisostomo on 07-03-2024 PT Coag (PPP) [Time] 27.2 s High 11.7-14.9 [facility] International normalized rat io (INR) calculationOrdered By: Kvng Crisostomo on 06-30-2024 INR Coag (Bld) [Relative time] 2.4 {INR} [facility] Prothrombin Time w/INRon INR Coag (PPP) [Relative time] 2.4 {INR} Normal [facility] Comment on above: Order Comment: 411.2 Performed By: #### L 300.3900 ####[facility] [address] [place], [place], [phone] PT Coag (PPP) [Time] 26.8 s High 11.7-14.9 [facility] Comment on above: Order Comment: 411.2 Performed By: #### L 300.3900 ####[facility] [address] [place], [place], [phone] Prothrombin timeOrdered By: Kvng Crisostomo on 06-30-2024 PT Coag (PPP) [Time] 26.8 s High 11.7-14.9 [facility] International normalized rat io (INR) calculationOrdered By: Kvng Crisostomo on 06-26-2024 INR Coag (Bld) [Relative time] 2.5 {INR} [facility] Prothrombin Time w/INRon INR Coag (PPP) [Relative time] 2.5 {INR} Normal [facility] Comment on above: Order Comment: 411.2 Performed By: #### L 300.3900 ####[facility] [address] [place], [address] PT Coag (PPP) [Time] 27.5 s High 11.7-14.9 [facility] Comment on above: Order Comment: 411.2 Performed By: #### L 300.3900 ####[facility] [address] [place], [address] Prothrombin timeOrdered By: Kvng Crisostomo on 06-26-2024 PT Coag (PPP) [Time] 27.5 s High 11.7-14.9 [facility] International normalized rat io (INR) calculationOrdered By: Carlos Cavazos on 06-23-2024 INR Coag (Bld) [Relative time] 2.8 {INR} [facility] Prothrombin Time w/INRon INR Coag (PPP) [Relative time] 2.8 {INR} Normal [facility] Comment on above: Order Comment: 411-2 Performed By: #### L 300.3900 ####[facility] [address] [place], [address] PT Coag (PPP) [Time] 29.7 s High 11.7-14.9 [facility] Comment on above: Order Comment: 411-2 Performed By: #### L 300.3900 ####[facility] [address] [place], [place], [phone] Prothrombin timeOrdered By: Carlos Cavazos on 06-23-2024 PT Coag (PPP) [Time] 29.7 s High 11.7-14.9 [facility] International normalized rat io (INR) calculationOrdered By: Kvng Crisostomo on 06-19-2024 INR Coag (Bld) [Relative time] 2.6 {INR} [facility] Prothrombin Time w/INRon INR Coag (PPP) [Relative time] 2.6 {INR} Normal [facility] Comment on above: Order Comment: 411.2 Performed By: #### L 300.3900 ####[facility] [address] [place], [address] PT Coag (PPP) [Time] 28.6 s High 11.7-14.9 [facility] Comment on above: Order Comment: 411.2 Performed By: #### L 300.3900 ####[facility] [address] [place], [address] Prothrombin timeOrdered By: Kvng Crisostomo on 06-19-2024 PT Coag (PPP) [Time] 28.6 s High 11.7-14.9 [facility] International normalized rat io (INR) calculationOrdered By: Kvng Crisostomo on 06-16-2024 INR Coag (Bld) [Relative time] 2.5 {INR} [facility] Prothrombin Time w/INRon INR Coag (PPP) [Relative time] 2.5 {INR} Normal [facility] Comment on above: Order Comment: 411.2 Performed By: #### L 300.3900 ####[facility] [address] [place], [address] PT Coag (PPP) [Time] 27.3 s High 11.7-14.9 [facility] Comment on above: Order Comment: 411.2 Performed By: #### L 300.3900 ####[facility] [address] [place], [place], [phone] Prothrombin timeOrdered By: Kvng Crisostomo on 06-16-2024 PT Coag (PPP) [Time] 27.3 s High 11.7-14.9 [facility] International normalized rat io (INR) calculationOrdered By: Kvng Crisostomo on 06-12-2024 INR Coag (Bld) [Relative time] 2.1 {INR} [facility] Prothrombin Time w/INRon INR Coag (PPP) [Relative time] 2.1 {INR} Normal [facility] Comment on above: Order Comment: 411.2 Performed By: #### L 300.3900 ####[facility] [address] [place], [place], [phone] PT Coag (PPP) [Time] 24.0 s High 11.7-14.9 [facility] Comment on above: Order Comment: 411.2 Performed By: #### L 300.3900 ####[facility] [address] [place], [place], [phone] Prothrombin timeOrdered By: Kvng Crisostomo on 06-12-2024 PT Coag (PPP) [Time] 24.0 s High 11.7-14.9 [facility] International normalized rat io (INR) calculationOrdered By: Carlos Cavazos on 06-09-2024 INR Coag (Bld) [Relative time] 1.5 {INR} [facility] Prothrombin Time w/INRon INR Coag (PPP) [Relative time] 1.5 {INR} Normal [facility] Comment on above: Order Comment: 411-2 Performed By: #### L 300.3900 ####[facility] [address] [place], [phone] PT Coag (PPP) [Time] 18.0 s High 11.7-14.9 [facility] Comment on above: Order Comment: 411-2 Performed By: #### L 300.3900 ####[facility] [address], [address] Prothrombin timeOrdered By: Carlos Cavazos on 06-09-2024 PT Coag (PPP) [Time] 18.0 s High 11.7-14.9 [facility] International normalized rat io (INR) calculationOrdered By: Kvng Crisostomo on 06-05-2024 INR Coag (Bld) [Relative time] 2.8 {INR} [facility] Prothrombin Time w/INRon INR Coag (PPP) [Relative time] 2.8 {INR} Normal [facility] Comment on above: Order Comment: 411.2 Performed By: #### L 300.3900 ####[facility] [address], [address] PT Coag (PPP) [Time] 30.3 s High 11.7-14.9 [facility] Comment on above: Order Comment: 411.2 Performed By: #### L 300.3900 ####[facility] [address] [place], [address] Prothrombin timeOrdered By: Kvng Crisostomo on 06-05-2024 PT Coag (PPP) [Time] 30.3 s High 11.7-14.9 [facility] International normalized rat io (INR) calculationOrdered By: Kvng Crisostomo on 06-02-2024 INR Coag (Bld) [Relative time] 2.6 {INR} [facility] Prothrombin Time w/INRon INR Coag (PPP) [Relative time] 2.6 {INR} Normal [facility] Comment on above: Order Comment: 411.2 Performed By: #### L 300.3900 ####[facility] [address], [address] PT Coag (PPP) [Time] 28.6 s High 11.7-14.9 [facility] Comment on above: Order Comment: 411.2 Performed By: #### L 300.3900 ####[facility] [address] [place], [place], [phone] Prothrombin timeOrdered By: Kvng Crisostomo on 06-02-2024 PT Coag (PPP) [Time] 28.6 s High 11.7-14.9 [facility] International normalized rat io (INR) calculationOrdered By: Kvng Crisostomo on 05-29-2024 INR Coag (Bld) [Relative time] 2.5 {INR} [facility] Prothrombin Time w/INRon INR Coag (PPP) [Relative time] 2.5 {INR} Normal [facility] Comment on above: Order Comment: 411.2 Performed By: #### L 300.3900 ####[facility] [address] [place], [place], [phone] PT Coag (PPP) [Time] 27.7 s High 11.7-14.9 [facility] Comment on above: Order Comment: 411.2 Performed By: #### L 300.3900 ####[facility] [address] [place], [place], [phone] Prothrombin timeOrdered By: Kvng Crisostomo on 05-29-2024 PT Coag (PPP) [Time] 27.7 s High 11.7-14.9 [facility] International normalized rat io (INR) calculationOrdered By: Carlos Cavazos on 05-26-2024 INR Coag (Bld) [Relative time] 2.2 {INR} [facility] Prothrombin Time w/INRon INR Coag (PPP) [Relative time] 2.2 {INR} Normal [facility] Comment on above: Order Comment: 411-2 Performed By: #### L 300.3900 ####[facility] [address] [place], [address] PT Coag (PPP) [Time] 24.5 s High 11.7-14.9 [facility] Comment on above: Order Comment: 411-2 Performed By: #### L 300.3900 ####[facility] [address] [place], [address] Prothrombin timeOrdered By: Carlos Cavazos on 05-26-2024 PT Coag (PPP) [Time] 24.5 s High 11.7-14.9 [facility] International normalized rat io (INR) calculationOrdered By: Kvng Crisostomo on 05-22-2024 INR Coag (Bld) [Relative time] 2.8 {INR} [facility] Prothrombin Time w/INRon INR Coag (PPP) [Relative time] 2.8 {INR} Normal [facility] Comment on above: Order Comment: 411.2 Performed By: #### L 300.3900 ####[facility] [address] [place], [address] PT Coag (PPP) [Time] 30.3 s High 11.7-14.9 [facility] Comment on above: Order Comment: 411.2 Performed By: #### L 300.3900 ####[facility] [address] [place], [address] Prothrombin timeOrdered By: Kvng Crisostomo on 05-22-2024 PT Coag (PPP) [Time] 30.3 s High 11.7-14.9 [facility] International normalized rat io (INR) calculationOrdered By: Kvng Crisostomo on 05-20-2024 INR Coag (Bld) [Relative time] 4.0 {INR} High [facility] Comment on above: CRITICAL VALUE CASEY D TO [id number]/14/25 0828 Diana Mattosn.RESULTS READ BACK BY SAME. Prothrombin Time w/INRon INR Coag (PPP) [Relative time] 4.0 {INR} Invalid Interpretation Code [facility] Comment on above: Order Comment: 411.2 Result Comment: CRIT ICAL VALUE CALLED TO [id number]/14/25 0828 Diana Bernalzano.RESULTS READ BACK BY SAME. Performed By: #### L 300.3900 ####[facility] [address] [place], [address] PT Coag (PPP) [Time] 39.9 s High 11.7-14.9 [facility] Comment on above: Order Comment: 411.2 Performed By: #### L 300.3900 ####[facility] [address] [place], [address] Prothrombin timeOrdered By: Kvng Crisostomo on 05-20-2024 PT Coag (PPP) [Time] 39.9 s High 11.7-14.9 [facility] International normalized rat io (INR) calculationOrdered By: Kvng Crisostomo on 05-19-2024 INR Coag (Bld) [Relative time] 3.4 {INR} [facility] Prothrombin Time w/INRon INR Coag (PPP) [Relative time] 3.4 {INR} Normal [facility] Comment on above: Order Comment: 411.2 Performed By: #### L 300.3900 ####[facility] [address] [place], [address] PT Coag (PPP) [Time] 35.4 s High 11.7-14.9 [facility] Comment on above: Order Comment: 411.2 Performed By: #### L 300.3900 ####[facility] [address] [place], [address] Prothrombin timeOrdered By: Kvng Crisostomo on 05-19-2024 PT Coag (PPP) [Time] 35.4 s High 11.7-14.9 [facility] [employer] normalized rat io (INR) calculationOrdered By: Kvng Crisostomo on 05-15-2024 INR Coag (Bld) [Relative time] 2.6 {INR} [facility] Prothrombin Time w/INRon INR Coag (PPP) [Relative time] 2.6 {INR} Normal [facility] Comment on above: Order Comment: 411.2 Performed By: #### L 300.3900 ####[facility] [address] [place], [address] PT Coag (PPP) [Time] 28.7 s High 11.7-14.9 [facility] Comment on above: Order Comment: 411.2 Performed By: #### L 300.3900 ####[facility] [address] [place], [address] Prothrombin timeOrdered By: Kvng Crisostomo on 05-15-2024 PT Coag (PPP) [Time] 28.7 s High 11.7-14.9 [facility] [employer] normalized rat io (INR) calculationOrdered By: Carlos Cavazos on 05-12-2024 INR Coag (Bld) [Relative time] 2.1 {INR} [facility] Prothrombin Time w/INRon INR Coag (PPP) [Relative time] 2.1 {INR} Normal [facility] Comment on above: Order Comment: 411-2 Performed By: #### L 300.3900 ####[facility] [address] [place], [address] PT Coag (PPP) [Time] 24.1 s High 11.7-14.9 [facility] Comment on above: Order Comment: 411-2 Performed By: #### L 300.3900 ####[facility] [address] [place], [address] Prothrombin timeOrdered By: Carlos Cavazos on 05-12-2024 PT Coag (PPP) [Time] 24.1 s High 11.7-14.9 [facility] [employer] normalized rat io (INR) calculationOrdered By: Kvng Crisostomo on 05-09-2024 INR Coag (Bld) [Relative time] 3.4 {INR} [facility] Prothrombin Time w/INRon INR Coag (PPP) [Relative time] 3.4 {INR} Normal [facility] Comment on above: Order Comment: 411.2 Performed By: #### L 300.3900 ####[facility] [address] [place], [address] PT Coag (PPP) [Time] 35.4 s High 11.7-14.9 [facility] Comment on above: Order Comment: 411.2 Performed By: #### L 300.3900 ####[facility] [address] [place], [address] Prothrombin timeOrdered By: Kvng Crisostomo on 05-09-2024 PT Coag (PPP) [Time] 35.4 s High 11.7-14.9 [facility] [employer] normalized rat io (INR) calculationOrdered By: Kvng Crisostomo on 05-08-2024 INR Coag (Bld) [Relative time] 4.1 {INR} High [facility] Comment on above: CRITICAL VALUE CASEY D TO [facility]05/08/24 09 Karen Jamison.RESULTS READ BACK BY SAME. Prothrombin Time w/INRon INR Coag (PPP) [Relative time] 4.1 {INR} Invalid Interpretation Code [facility] Comment on above: Order Comment: 411.2 Result Comment: CRIT ICAL VALUE CALLED TO [facility]05/08/24 09 Karen Jamison.RESULTS READ BACK BY SAME. Performed By: #### L 300.3900 ####[facility] [address] [place], [address] PT Coag (PPP) [Time] 40.8 s High 11.7-14.9 [facility] Comment on above: Order Comment: 411.2 Performed By: #### L 300.3900 ####[facility] [address] [place], [address] Prothrombin timeOrdered By: Kvng Crisostomo on 05-08-2024 PT Coag (PPP) [Time] 40.8 s High 11.7-14.9 [facility] [employer] normalized rat io (INR) calculationOrdered By: Kvng Crisostomo on 05-05-2024 INR Coag (Bld) [Relative time] 3.2 {INR} [facility] Prothrombin Time w/INRon INR Coag (PPP) [Relative time] 3.2 {INR} Normal [facility] Comment on above: Order Comment: 411.2 Performed By: #### L 300.3900 ####[facility] [address] [facility] [phone] PT Coag (PPP) [Time] 32.5 s High 11.7-14.9 [facility] Comment on above: Order Comment: 411.2 Performed By: #### L 300.3900 ####[facility] [address] [facility] [address] Prothrombin timeOrdered By: Kvng Crisostomo on 05-05-2024 PT Coag (PPP) [Time] 32.5 s High 11.7-14.9 [facility] [employer] normalized rat io (INR) calculationOrdered By: Kvng Crisostomo on 05-01-2024 INR Coag (Bld) [Relative time] 3.1 {INR} [facility] Prothrombin Time w/INRon INR Coag (PPP) [Relative time] 3.1 {INR} Normal [facility] Comment on above: Order Comment: 411.2 Performed By: #### L 300.3900 ####[facility] [address] [facility] [address] PT Coag (PPP) [Time] 31.9 s High 11.7-14.9 [facility] Comment on above: Order Comment: 411.2 Performed By: #### L 300.3900 ####[facility] [address] [facility] [address] Prothrombin timeOrdered By: Kvng Crisostomo on 05-01-2024 PT Coag (PPP) [Time] 31.9 s High 11.7-14.9 [facility] [employer] normalized rat io (INR) calculationOrdered By: Carlos Cavazos on 04-28-2024 INR Coag (Bld) [Relative time] 2.6 {INR} [facility] Prothrombin Time w/INRon INR Coag (PPP) [Relative time] 2.6 {INR} Normal [facility] Comment on above: Order Comment: 411-2 Performed By: #### L 300.3900 ####[facility] [address] [place], [place], [address] PT Coag (PPP) [Time] 27.3 s High 11.7-14.9 [facility] Comment on above: Order Comment: 411-2 Performed By: #### L 300.3900 ####[facility] [address] [place], [address] Prothrombin timeOrdered By: Carlos Cavazos on 04-28-2024 PT Coag (PPP) [Time] 27.3 s High 11.7-14.9 [facility] [employer] normalized rat io (INR) calculationOrdered By: Kvng Crisostomo on 04-24-2024 INR Coag (Bld) [Relative time] 3.6 {INR} [facility] Prothrombin Time w/INRon INR Coag (PPP) [Relative time] 3.6 {INR} Normal [facility] Comment on above: Order Comment: 411.2 Performed By: #### L 300.3900 ####[facility] [address] [place], [address] PT Coag (PPP) [Time] 35.6 s High 11.7-14.9 [facility] Comment on above: Order Comment: 411.2 Performed By: #### L 300.3900 ####[facility] [address] [place], [place], [address] Prothrombin timeOrdered By: Kvng Crisostomo on 04-24-2024 PT Coag (PPP) [Time] 35.6 s High 11.7-14.9 [facility] [employer] normalized rat io (INR) calculationOrdered By: Carlos Cavazos on 04-21-2024 INR Coag (Bld) [Relative time] 2.8 {INR} [facility] Prothrombin Time w/INRon INR Coag (PPP) [Relative time] 2.8 {INR} Normal [facility] Comment on above: Order Comment: 411-2 Performed By: #### L 300.3900 ####[facility] [address] [place], [place], [address] PT Coag (PPP) [Time] 29.4 s High 11.7-14.9 [facility] Comment on above: Order Comment: 411-2 Performed By: #### L 300.3900 ####[facility] [address] [place], [place], [address] Prothrombin timeOrdered By: Carlos Cavazos on 04-21-2024 PT Coag (PPP) [Time] 29.4 s High 11.7-14.9 [facility] [employer] normalized rat io (INR) calculationOrdered By: Kvng Crisostomo on 04-17-2024 INR Coag (Bld) [Relative time] 3.1 {INR} [facility] Prothrombin Time w/INRon INR Coag (PPP) [Relative time] 3.1 {INR} Normal [facility] Comment on above: Order Comment: 411.2 Performed By: #### L 300.3900 ####[facility] [address] [place], [place], [address] Prothrombin timeOrdered By: Kvng Crisostomo on 04-17-2024 PT Coag (PPP) [Time] 31.3 s High 11.7-14.9 [facility] Comment on above: Order Comment: 411.2 Performed By: #### L 300.3900 ####[facility] [address] [place], [place], [phone] International normalized rat io (INR) calculationOrdered By: Kvng Crisostomo on 04-14-2024 INR Coag (Bld) [Relative time] 3.3 {INR} [facility] Prothrombin Time w/INRon INR Coag (PPP) [Relative time] 3.3 {INR} Normal [facility] Comment on above: Order Comment: 411.2 Performed By: #### L 300.3900 ####[facility] [address] [place], [place], [phone] PT Coag (PPP) [Time] 33.2 s High 11.7-14.9 [facility] Comment on above: Order Comment: 411.2 Performed By: #### L 300.3900 ####[facility] [address] [place], [place], [phone] Prothrombin timeOrdered By: Kvng Crisostomo on 04-14-2024 PT Coag (PPP) [Time] 33.2 s High 11.7-14.9 [facility] [employer] normalized rat io (INR) calculationOrdered By: Kvng Crisostomo on 04-10-2024 INR Coag (Bld) [Relative time] 2.8 {INR} [facility] Prothrombin Time w/INRon INR Coag (PPP) [Relative time] 2.8 {INR} Normal [facility] Comment on above: Order Comment: 411.2 Performed By: #### L 300.3900 ####[facility] [address] [place], [address] PT Coag (PPP) [Time] 29.2 s High 11.7-14.9 [facility] Comment on above: Order Comment: 411.2 Performed By: #### L 300.3900 ####[facility] [address] [facility] [address] Prothrombin timeOrdered By: Kvng Crisostomo on 04-10-2024 PT Coag (PPP) [Time] 29.2 s High 11.7-14.9 [facility] [employer] normalized rat io (INR) calculationOrdered By: Carlos Cavazos on 04-07-2024 INR Coag (Bld) [Relative time] 2.7 {INR} [facility] Prothrombin Time w/INRon INR Coag (PPP) [Relative time] 2.7 {INR} Normal [facility] Comment on above: Order Comment: 411-2 Performed By: #### L 300.3900 ####[facility] [address] [place], [address] PT Coag (PPP) [Time] 28.1 s High 11.7-14.9 [facility] Comment on above: Order Comment: 411-2 Performed By: #### L 300.3900 ####[facility] [address] [place], [address] Prothrombin timeOrdered By: Carlos Cavazos on 04-07-2024 PT Coag (PPP) [Time] 28.1 s High 11.7-14.9 [facility] [employer] normalized rat io (INR) calculationOrdered By: Kvng Crisostomo on 04-04-2024 INR Coag (Bld) [Relative time] 2.8 {INR} [facility] Prothrombin Time w/INRon INR Coag (PPP) [Relative time] 2.8 {INR} Normal [facility] Comment on above: Order Comment: 411.2 Performed By: #### L 300.3900 ####[facility] [address] [place], [address]) PT Coag (PPP) [Time] 28.9 s High 11.7-14.9 [facility] Comment on above: Order Comment: 411.2 Performed By: #### L 300.3900 ####[facility] [address] [place], [place], [address] Prothrombin timeOrdered By: Kvng Crisostomo on 04-04-2024 PT Coag (PPP) [Time] 28.9 s High 11.7-14.9 [facility] [employer] normalized rat io (INR) calculationOrdered By: Carlos Cavazos on 03-31-2024 INR Coag (Bld) [Relative time] 2.6 {INR} [facility] Prothrombin Time w/INRon INR Coag (PPP) [Relative time] 2.6 {INR} Normal [facility] Comment on above: Order Comment: 411-2 Performed By: #### L 300.3900 ####[facility] [address] [place], [place], [phone] PT Coag (PPP) [Time] 27.3 s High 11.7-14.9 [facility] Comment on above: Order Comment: 411-2 Performed By: #### L 300.3900 ####[facility] [address] [place], [address] Prothrombin timeOrdered By: Carlos Cavazos on 03-31-2024 PT Coag (PPP) [Time] 27.3 s High 11.7-14.9 [facility] International normalized rat io (INR) calculationOrdered By: [employer] on 03-27-2024 INR Coag (Bld) [Relative time] 2.2 {INR} [facility] Prothrombin Time w/INRon INR Coag (PPP) [Relative time] 2.2 {INR} Normal [facility] Comment on above: Order Comment: 411.2 Performed By: #### L 300.3900 ####[facility] [address] [place], [address] PT Coag (PPP) [Time] 24.3 s High 11.7-14.9 [facility] Comment on above: Order Comment: 411.2 Performed By: #### L 300.3900 ####[facility] [address] [place], [address] Prothrombin timeOrdered By: [employer] on 03-27-2024 PT Coag (PPP) [Time] 24.3 s High 11.7-14.9 [facility] [employer] normalized rat io (INR) calculationOrdered By: Kvng Crisostomo on 03-24-2024 INR Coag (Bld) [Relative time] 1.8 {INR} [facility] Prothrombin Time w/INRon INR Coag (PPP) [Relative time] 1.8 {INR} Normal [facility] Comment on above: Order Comment: 411.2 Performed By: #### L 300.3900 ####[facility] [address] [place], [address] PT Coag (PPP) [Time] 20.7 s High 11.7-14.9 [facility] Comment on above: Order Comment: 411.2 Performed By: #### L 300.3900 ####[facility] [address] [place], [address] Prothrombin timeOrdered By: Kvng Crisostomo on 03-24-2024 PT Coag (PPP) [Time] 20.7 s High 11.7-14.9 [facility] International normalized rat io (INR) calculationOrdered By: [employer] on 03-20-2024 INR Coag (Bld) [Relative time] 1.8 {INR} [facility] Prothrombin Time w/INRon INR Coag (PPP) [Relative time] 1.8 {INR} Normal [facility] Comment on above: Order Comment: 411.2 Performed By: #### L 300.3900 ####[facility] [address] [place], [address] PT Coag (PPP) [Time] 20.9 s High 11.7-14.9 [facility] Comment on above: Order Comment: 411.2 Performed By: #### L 300.3900 ####[facility] [address] [place], [address] Prothrombin timeOrdered By: [employer] on 03-20-2024 PT Coag (PPP) [Time] 20.9 s High 11.7-14.9 [facility] [employer] normalized rat io (INR) calculationOrdered By: Kvng Crisostomo on 03-19-2024 INR Coag (Bld) [Relative time] 2.4 {INR} [facility] Prothrombin Time w/INRon INR Coag (PPP) [Relative time] 2.4 {INR} Normal [facility] Comment on above: Order Comment: 411.2 Performed By: #### L 300.3900 ####[facility] [address] [place], [address] PT Coag (PPP) [Time] 26.4 s High 11.7-14.9 [facility] Comment on above: Order Comment: 411.2 Performed By: #### L 300.3900 ####[facility] [address] [place], [address] Prothrombin timeOrdered By: Kvng Crisostomo on 03-19-2024 PT Coag (PPP) [Time] 26.4 s High 11.7-14.9 [facility] [employer] normalized rat io (INR) calculationOrdered By: [employer] on 03-18-2024 INR Coag (Bld) [Relative time] 3.2 {INR} [facility] Prothrombin Time w/INRon INR Coag (PPP) [Relative time] 3.2 {INR} Normal [facility] Comment on above: Order Comment: 411.2 Performed By: #### L 300.3900 ####[facility] [address] [place], [address] PT Coag (PPP) [Time] 32.3 s High 11.7-14.9 [facility] Comment on above: Order Comment: 411.2 Performed By: #### L 300.3900 ####[facility] [address] [place], [place], [id number] Prothrombin timeOrdered By: [employer] on 03-18-2024 PT Coag (PPP) [Time] 32.3 s High 11.7-14.9 [facility] [employer] normalized rat io (INR) calculationOrdered By: [employer] on 03-17-2024 INR Coag (Bld) [Relative time] 3.6 {INR} [facility] Prothrombin Time w/INRon INR Coag (PPP) [Relative time] 3.6 {INR} Normal [facility] Comment on above: Order Comment: 411.2 Performed By: #### L 300.3900 ####[facility] [address] [place], [address] PT Coag (PPP) [Time] 35.7 s High 11.7-14.9 [facility] Comment on above: Order Comment: 411.2 Performed By: #### L 300.3900 ####[facility] [address] [place], [address] Prothrombin timeOrdered By: [employer] on 03-17-2024 PT Coag (PPP) [Time] 35.7 s High 11.7-14.9 [facility] International normalized rat io (INR) calculationOrdered By: Carlos Cavazos on 03-14-2024 INR Coag (Bld) [Relative time] 3.5 {INR} [facility] Prothrombin Time w/INRon INR Coag (PPP) [Relative time] 3.5 {INR} Normal [facility] Comment on above: Order Comment: 411-2 Performed By: #### L 300.3900 ####[facility] [address] [place], [address] PT Coag (PPP) [Time] 35.0 s High 11.7-14.9 [facility] Comment on above: Order Comment: 411-2 Performed By: #### L 300.3900 ####[facility] [address] [place], [place], [phone] Prothrombin timeOrdered By: Carlos Cavazos on 03-14-2024 PT Coag (PPP) [Time] 35.0 s High 11.7-14.9 [facility] [employer] normalized rat io (INR) calculationOrdered By: [employer] on 03-13-2024 INR Coag (Bld) [Relative time] 3.2 {INR} [facility] Prothrombin Time w/INRon INR Coag (PPP) [Relative time] 3.2 {INR} Normal [facility] Comment on above: Performed By: #### L 300.3900 ####[facility] [address] [place], [address] PT Coag (PPP) [Time] 32.2 s High 11.7-14.9 [facility] Comment on above: Performed By: #### L 300.3900 ####[facility] [address] [place], [place], [phone] Prothrombin timeOrdered By: [employer] on 03-13-2024 PT Coag (PPP) [Time] 32.2 s High 11.7-14.9 [facility] Prothrombin Time w/INRon INR Coag (PPP) [Relative time] 2.6 {INR} Normal [facility] Comment on above: Order Comment: 411.2 Performed By: #### L 300.3900 ####[facility] [address] [place], [address] PT Coag (PPP) [Time] 27.7 s High 11.7-14.9 [facility] Comment on above: Order Comment: 411.2 Performed By: #### L 300.3900 ####[facility] [address] [place], [place], [id number] Office Visiton 09-13-2023 Follow-up visit [id number] Tamie Sifuentes ld R 1950 M Date Provider Department Center 09/13/2023 [id number] BUCK [facility] None Family History Problem Relation Age of Onset Heart disease Father Cancer Mother Family Status - Relation Status Age at Father Mother Level of Service:14659 DC OFFICE/OUTPATIENT ESTABLISHED MOD MDM 30 MIN Reason [...] Hydrocephalus, adult (CMS/HCC) (HCC) Kidney stone Neuropathy [employer] TE[employer] (ventriculoperitoneal) shunt status Past Surgical History: Procedure [...] [facility]BD[facility]EN PELVIS WO IV CONTRAST Patient Name[facility]W [facility] 1950 [id number] Exam Date/Time: 09/06/2023 18:14 Procedure: CT ABDOMEN [...] kidney stone; pt has a hernia Normal [facility] 08-29-2023 36 Lm on daughters vm t o advise them to call the number for the educational manager to get clarification, and to call back with further questions [facility] 36on 04-22-2024 36 Yes, they will need to call the number given to them. [facility] 36 Please advise [facility] 36on 08-21-2023 36 Name of caller: Zion holt Contact phone number: [phone] Relationship to Patient: patient Provider: MD Cielo Practice: [facility] Chief Complaint/Reason for Call: [...] to reach out to call Maury Cedeño Reporting Coordinator at [facility] [phone] to get clarifications. CAC did reach back out to [facility] and advised and provider Maury's #. Please advise Best time of day caller can be reached: Any Patient advised that office/PCP has 24-48 business hours to return their call: N/A [facility] - CoagulationOrde red By: Carlos Cavazos on 08-21-2023 INR Coag (Bld) [Relative time] 2.7 {INR} [facility] PT Coag (PPP) [Time] 28.9 s 11.7-14.9 [facility] Office Visiton 08-13-2023 Follow-up visit [id number] Tamie Sifuentes cheng Gonzalez 1950 [employer] Provider Department Center 08/13/2023 [id number] BUCK [facility] None Family History Problem Relation Age of Onset Heart disease Father Cancer Mother Family Status - Relation Status Age at Father Mother Level of Service:45833 DC OFFICE/OUTPATIENT NEW MODERATE MDM 45 MINUTES Reason for Visit and Comments: New Patient [542] - Bilateral flank pain, hx of kidney stones Nephrolithiasis [[id number]] [facility] Progress Noteon 08-13-2023 Progress Note Walt Moran [...] Hydrocephalus, adult (CMS/HCC) (HCC) Kidney stone Neuropathy [employer] (ventriculoperitoneal) shunt status Past Surgical History: Past [...] (Keppra) Level 32.4 ug/mL 10.0-40.0 [facility] Comment on above: Performed at: [address] [id number] Director: Alpesh Vázquez MD, Phone: [phone] Basophil percentageOrdered B y: Carlos Cavazos on 07-20-2023 Chloride [Moles/Vol] 106 mmol/L 98-107 [facility] Glucose [Mass/Vol] 98 mg/dL 74-106 [facility] Hemoglobin (Bld) [Mass/Vol] 12.5 g/dL 13.0-16.5 [facility] Potassium [Moles/Vol] 4.3 mmol/L 3.5-5.1 [facility] Sodium [Moles/Vol] 135 mmol/L 136-145 [facility] WBC (Bld) [#/Vol] 13.0 10*3/uL 4.4-11.0 [facility] Determination of erythrocyte mean corpuscular volume (MCV)Ordered By: Carlos Cavazos on 07-20-2023 MCV (RBC) [Entitic vol] 86.2 fL 80-94 [facility] Erythrocyte distribution wid th ratioOrdered By: Carlos Cavazos on 07-20-2023 Erythrocyte distribution width (RBC) [Ratio] 15.3 % 11.6-14.6 [facility] Erythrocyte distribution wid th standard deviationOrdered By: Carlos Cavazos on 07-20-2023 Erythrocyte distribution width (RBC) [Entitic vol] 48.1 fL 35.1-43.9 [facility] Hematocrit Auto (Bld) [Volum e fraction]Ordered By: Carlos Cavazos on 07-20-2023 Hematocrit (Bld) [Volume fraction] 39.9 % 40-54 [facility] Laboratory - Chemistry and C hemistry - challengeOrdered By: Carlos Cavazos on 07-20-2023 CO2 [Moles/Vol] 24.0 mmol/L 21.0-32.0 [facility] Urea nitrogen/Creatinine [Mass ratio] 24.6 mg/mg 10-20 [facility] Laboratory - Hematology and Cell countsOrdered By: Carlos Cavazos on 07-20-2023 MCH (RBC) [Entitic mass] 27.0 pg 27.0-32.0 [facility] MCHC (RBC) [Mass/Vol] 31.3 g/dL 32-36 [facility] Platelet mean volume (Bld) [Entitic vol] 10.7 fL 6.2-12.0 [facility] Platelets (Bld) [#/Vol] 260 10*3/uL 150-450 [facility] No Panel InformationOrdered By: Carlos Cavazos on 07-20-2023 Estimated GFR (MDRD) Amer 114 mL/min >60 [facility] Comment on above: GFR Calc Estimated GFR (MDRD) Non-Af Amer 94 mL/min >60 [facility] Comment on above: Non- GFR Calc RBC Auto (Bld) [#/Vol]Ordere d By: Carlos Cavazos on 07-20-2023 RBC (Bld) [#/Vol] 4.63 10*6/uL 4.6-6.2 [facility] Serum or plasma calcium oral urement (mass/volume)Ordered By: Carlos Cavazos on 07-20-2023 Calcium [Mass/Vol] 8.6 mg/dL 8.5-10.1 [facility] Serum or plasma creatinine m easurement (mass/volume)Ordered By: Carlos Cavazos on 07-20-2023 Creatinine [Mass/Vol] 0.85 mg/dL 0.70-1.30 [facility] Comment on above: The validity of the calculated GFR & GFRAA in patients over 70 years has not been determined. Clinical correlation is essential. Serum or plasma urea nitroge n measurement (mass/volume)Ordered By: Carlos Cavazos on 07-20-2023 Urea nitrogen [Mass/Vol] 21 mg/dL 7-18 [facility] Thin prep Papanicolaou smear with manual screeningOrdered By: Carlos Cavazos on 07-20-2023 Thin prep Papanicolaou smear with manual screening 5 5-15 [facility] Basophil percentageOrdered B y: Carlos Cavazos on 07-18-2023 Chloride [Moles/Vol] 102 mmol/L 98-107 [facility] Glucose [Mass/Vol] 96 mg/dL 74-106 [facility] Hemoglobin (Bld) [Mass/Vol] 12.3 g/dL 13.0-16.5 [facility] Potassium [Moles/Vol] 4.2 mmol/L 3.5-5.1 [facility] Sodium [Moles/Vol] 136 mmol/L 136-145 [facility] WBC (Bld) [#/Vol] 14.7 10*3/uL 4.4-11.0 [facility] Determination of erythrocyte mean corpuscular volume (MCV)Ordered By: Carlos Cavazos on 07-18-2023 MCV (RBC) [Entitic vol] 85.4 fL 80-94 [facility] Erythrocyte distribution wid th ratioOrdered By: Carlos Cavazos on 07-18-2023 Erythrocyte distribution width (RBC) [Ratio] 15.1 % 11.6-14.6 [facility] Erythrocyte distribution wid th standard deviationOrdered By: Carlos Cavazos on 07-18-2023 Erythrocyte distribution width (RBC) [Entitic vol] 47.3 fL 35.1-43.9 [facility] Hematocrit Auto (Bld) [Volum e fraction]Ordered By: Carlos Cavazos on 07-18-2023 Hematocrit (Bld) [Volume fraction] 39.3 % 40-54 [facility] Laboratory - Chemistry and C hemistry - challengeOrdered By: Carlos Cavazos on 07-18-2023 CO2 [Moles/Vol] 27.0 mmol/L 21.0-32.0 [facility] Urea nitrogen/Creatinine [Mass ratio] 24.4 mg/mg 10-20 [facility] Laboratory - Hematology and Cell countsOrdered By: Carlos Cavazos on 07-18-2023 MCH (RBC) [Entitic mass] 26.7 pg 27.0-32.0 [facility] MCHC (RBC) [Mass/Vol] 31.3 g/dL 32-36 [facility] Platelet mean volume (Bld) [Entitic vol] 10.3 fL 6.2-12.0 [facility] Platelets (Bld) [#/Vol] 288 10*3/uL 150-450 [facility] No Panel InformationOrdered By: Carlos Cavazos on 07-18-2023 Estimated GFR (MDRD) Amer 113 mL/min >60 [facility] Comment on above: GFR Calc Estimated GFR (MDRD) Non-Af Amer 93 mL/min >60 [facility] Comment on above: Non- GFR Calc RBC Auto (Bld) [#/Vol]Ordere d By: Carlos Cavazos on 07-18-2023 RBC (Bld) [#/Vol] 4.60 10*6/uL 4.6-6.2 [facility] Serum or plasma calcium oral urement (mass/volume)Ordered By: Carlos Cavazos on 07-18-2023 Calcium [Mass/Vol] 8.9 mg/dL 8.5-10.1 [facility] Serum or plasma creatinine m easurement (mass/volume)Ordered By: Carlos Cavazos on 07-18-2023 Creatinine [Mass/Vol] 0.86 mg/dL 0.70-1.30 [facility] Comment on above: The validity of the calculated GFR & GFRAA in patients over 70 years has not been determined. Clinical correlation is essential. Serum or plasma urea nitroge n measurement (mass/volume)Ordered By: Carlos Cavazos on 07-18-2023 Urea nitrogen [Mass/Vol] 21 mg/dL 7-18 [facility] Thin prep Papanicolaou smear with manual screeningOrdered By: Carlos Cavazos on 07-18-2023 Thin prep Papanicolaou smear with manual screening 7 5-15 [facility] Basophil percentageOrdered B y: Carlos Cavazos on 07-17-2023 Basophil percentage 0-5 SEEN /hpf 0-5 [facility] Bilirubin Test strip Ql (U)O rdered By: Carlos Cavazos on 07-17-2023 Bilirubin Ql (U) Negative Negative [facility] Calcium oxalate crystals det ection in urine sediment by light microscopyOrdered By: Carlos Cavazos on 07-17-2023 Calcium oxalate crystals LM Ql (Urine sed) 1+ /hpf [facility] Culture, urineOrdered By: Sharif Crouch on 07-17-2023 Bacteria identified Cx Nom (U) Positive [facility] Ketones Test strip Ql (U)Ord ered By: Carlos Cavazos on 07-17-2023 Ketones Ql (U) Negative Negative [facility] Mucus LM Ql (Urine sed)Order ed By: Carlos Cavazos on 07-17-2023 Mucus Ql (Urine sed) 0 SEEN /hpf [facility] Nitrite Test strip Ql (U)Ord ered By: Carlos Cavazos on 07-17-2023 Nitrite Ql (U) Negative Negative [facility] No Panel InformationOrdered By: Carlos Cavazos on 07-17-2023 Urine RBC 0 SEEN /hpf 0-5 [facility] Protein Test strip Ql (U)Ord ered By: Carlos Cavazos on 07-17-2023 Protein Ql (U) Negative Negative [facility] Squamous epithelial cells de tection in urine sediment by light microscopyOrdered By: Carlos Cavazos on 07-17-2023 Epithelial cells.squamous LM Ql (Urine sed) 0-5 SEEN /hpf 0-5 [facility] Urine blood detectionOrdered By: Carlos Cavazos on 07-17-2023 RBC Ql (U) Negative Negative [facility] Urine clarityOrdered By: Ted Cavazos on 07-17-2023 Clarity (U) Clear Clear [facility] Urine color determinationOrd ered By: Carlos Cavazos on 07-17-2023 Color (U) Yellow Yellow [facility] Urine glucose detectionOrder ed By: Carlos Cavazos on 07-17-2023 Glucose Ql (U) Normal mg/dl Normal [facility] Urine leukocyte esterase det ection by dipstickOrdered By: Carlos Cavazos on 07-17-2023 Leukocyte esterase Test strip Ql (U) 25 /ul Negative [facility] Urine pHOrdered By: Carlos flores on 07-17-2023 pH (U) 6.0 [pH] 5.0 - 8.0 [facility] Urine sediment bacteria coun t by microscopy (number/high power field)Ordered By: Carlos Cavazos on 07-17-2023 Bacteria LM.HPF (Urine sed) [#/Area] 0 /[HPF] None Seen [facility] Urine specific gravity measu rementOrdered By: Carlos Cavazos on 07-17-2023 Specific gravity (U) [Rel density] 1.020 1.002-1.030 [facility] Urine urobilinogen measureme ntOrdered By: Carlos Cavazos on 07-17-2023 Urobilinogen Ql (U) Normal mg/dl Normal [facility] Absolute lymphocyte countOrd ered By: Carlos Cavazos on 07-16-2023 Lymphocytes Auto (Unsp spec) [#/Vol] 6.02 10*3/uL 0.83-4.51 [facility] Automated lymphocyte count a s percentage of total leukocytesOrdered By: Carlos Cavazos on 07-16-2023 Lymphocytes/100 WBC Auto (Unsp spec) 49.1 % 19-41 [facility] Basophil percentageOrdered B y: Carlos Cavazos on 07-16-2023 Basophils/100 WBC (Bld) 0.6 % 0-1 [facility] Chloride [Moles/Vol] 105 mmol/L 98-107 [facility] Eosinophils/100 WBC (Bld) 2.0 % 0-5 [facility] Glucose [Mass/Vol] 93 mg/dL 74-106 [facility] Hemoglobin (Bld) [Mass/Vol] 12.1 g/dL 13.0-16.5 [facility] Monocytes/100 WBC (Bld) 5.3 % 0-10 [facility] Neutrophils (Bld) [#/Vol] 5.2 10*3/uL 2.0-7.7 [facility] Neutrophils/100 WBC (Bld) 42.8 % 47-70 [facility] Potassium [Moles/Vol] 4.3 mmol/L 3.5-5.1 [facility] Sodium [Moles/Vol] 138 mmol/L 136-145 [facility] WBC (Bld) [#/Vol] 12.3 10*3/uL 4.4-11.0 [facility] Blood manual differential co mment interpretation (narrative result)Ordered By: Carlos Cavazos on 07-16-2023 Manual differential comment Shemar (Bld) [Interp] SCANNED [facility] Determination of erythrocyte mean corpuscular volume (MCV)Ordered By: Carlos Cavazos on 07-16-2023 MCV (RBC) [Entitic vol] 86.8 fL 80-94 [facility] Erythrocyte distribution wid th ratioOrdered By: Carlos Cavazos on 07-16-2023 Erythrocyte distribution width (RBC) [Ratio] 15.3 % 11.6-14.6 [facility] Erythrocyte distribution wid th standard deviationOrdered By: Carlos Cavazos on 07-16-2023 Erythrocyte distribution width (RBC) [Entitic vol] 48.9 fL 35.1-43.9 [facility] Hematocrit Auto (Bld) [Volum e fraction]Ordered By: Carlos Cavazos on 07-16-2023 Hematocrit (Bld) [Volume fraction] 38.7 % 40-54 [facility] Immature granulocytes/100 WB C Auto (Bld)Ordered By: Carlos Cavazos on 07-16-2023 Immature granulocytes/100 WBC (Bld) 0.200 % 0.0-0.9 [facility] Comment on above: IG% - Immature Granu locytes (promyelocytes, myelocytes and metamyelocytes) > 1% indicates that a LEFT SHIFT is Present. Laboratory - Chemistry and C hemistry - challengeOrdered By: Carlos Cavazos on 07-16-2023 CO2 [Moles/Vol] 25.0 mmol/L 21.0-32.0 [facility] Urea nitrogen/Creatinine [Mass ratio] 21.0 mg/mg 10-20 [facility] Laboratory - CoagulationOrde red By: Carlos Cavazos on 07-16-2023 INR Coag (Bld) [Relative time] 2.4 {INR} [facility] PT Coag (PPP) [Time] 25.7 s 11.7-14.9 [facility] Laboratory - Hematology and Cell countsOrdered By: Carlos Cavazos on 07-16-2023 MCH (RBC) [Entitic mass] 27.1 pg 27.0-32.0 [facility] MCHC (RBC) [Mass/Vol] 31.3 g/dL 32-36 [facility] Nucleated RBC/100 WBC (Bld) [Ratio] 0 % 0-5 [facility] Platelet mean volume (Bld) [Entitic vol] 10.5 fL 6.2-12.0 [facility] Platelets (Bld) [#/Vol] 289 10*3/uL 150-450 [facility] No Panel InformationOrdered By: Carlos Cavazos on 07-16-2023 Estimated GFR (MDRD) Amer 106 mL/min >60 [facility] Comment on above: GFR Calc Estimated GFR (MDRD) Non-Af Amer 88 mL/min >60 [facility] Comment on above: Non- GFR Calc Reactive Lymphocytes 1+ [facility] RBC Auto (Bld) [#/Vol]Ordere d By: Carlos Cavazos on 07-16-2023 RBC (Bld) [#/Vol] 4.46 10*6/uL 4.6-6.2 [facility] Serum or plasma calcium oral urement (mass/volume)Ordered By: Carlos Cavazos on 07-16-2023 Calcium [Mass/Vol] 9.0 mg/dL 8.5-10.1 [facility] Serum or plasma creatinine m easurement (mass/volume)Ordered By: Carlos Cavazos on 07-16-2023 Creatinine [Mass/Vol] 0.90 mg/dL 0.70-1.30 [facility] Comment on above: The validity of the calculated GFR & GFRAA in patients over 70 years has not been determined. Clinical correlation is essential. Serum or plasma urea nitroge n measurement (mass/volume)Ordered By: Carlos Cavazos on 07-16-2023 Urea nitrogen [Mass/Vol] 19 mg/dL 7-18 [facility] Thin prep Papanicolaou smear with manual screeningOrdered By: Carlos Cavazos on 07-16-2023 Thin prep Papanicolaou smear with manual screening 8 5-15 [facility] Absolute lymphocyte countOrd ered By: Carlos Cavazos on 07-13-2023 Lymphocytes Auto (Unsp spec) [#/Vol] 5.44 10*3/uL 0.83-4.51 [facility] Automated lymphocyte count a s percentage of total leukocytesOrdered By: Carlos Cavazos on 07-13-2023 Lymphocytes/100 WBC Auto (Unsp spec) 47.3 % 19-41 [facility] Basophil percentageOrdered B y: Carlos Cavazos on 07-13-2023 Basophils/100 WBC (Bld) 0.4 % 0-1 [facility] Chloride [Moles/Vol] 107 mmol/L 98-107 [facility] Eosinophils/100 WBC (Bld) 1.7 % 0-5 [facility] Glucose [Mass/Vol] 96 mg/dL 74-106 [facility] Hemoglobin (Bld) [Mass/Vol] 13.5 g/dL 13.0-16.5 [facility] Monocytes/100 WBC (Bld) 4.3 % 0-10 [facility] Neutrophils (Bld) [#/Vol] 5.3 10*3/uL 2.0-7.7 [facility] Neutrophils/100 WBC (Bld) 46.0 % 47-70 [facility] Potassium [Moles/Vol] 4.0 mmol/L 3.5-5.1 [facility] Sodium [Moles/Vol] 139 mmol/L 136-145 [facility] WBC (Bld) [#/Vol] 11.5 10*3/uL 4.4-11.0 [facility] Determination of erythrocyte mean corpuscular volume (MCV)Ordered By: Carlos Cavazos on 07-13-2023 MCV (RBC) [Entitic vol] 86.1 fL 80-94 [facility] Erythrocyte distribution wid th ratioOrdered By: Carlos Cavazos on 07-13-2023 Erythrocyte distribution width (RBC) [Ratio] 15.2 % 11.6-14.6 [facility] Erythrocyte distribution wid th standard deviationOrdered By: Carlos Cavazos on 07-13-2023 Erythrocyte distribution width (RBC) [Entitic vol] 48.0 fL 35.1-43.9 [facility] Hematocrit Auto (Bld) [Volum e fraction]Ordered By: Carlos Cavazos on 07-13-2023 Hematocrit (Bld) [Volume fraction] 42.2 % 40-54 [facility] Immature granulocytes/100 WB C Auto (Bld)Ordered By: Carlos Cavazos on 07-13-2023 Immature granulocytes/100 WBC (Bld) 0.300 % 0.0-0.9 [facility] Comment on above: IG% - Immature Granu locytes (promyelocytes, myelocytes and metamyelocytes) > 1% indicates that a LEFT SHIFT is Present. Laboratory - Chemistry and C hemistry - challengeOrdered By: Carlos Cavazos on 07-13-2023 CO2 [Moles/Vol] 26.0 mmol/L 21.0-32.0 [facility] Urea nitrogen/Creatinine [Mass ratio] 21.8 mg/mg 10-20 [facility] Laboratory - Hematology and Cell countsOrdered By: Carlos Cavaozs on 07-13-2023 MCH (RBC) [Entitic mass] 27.6 pg 27.0-32.0 [facility] MCHC (RBC) [Mass/Vol] 32.0 g/dL 32-36 [facility] Nucleated RBC/100 WBC (Bld) [Ratio] 0 % 0-5 [facility] Platelet mean volume (Bld) [Entitic vol] 10.1 fL 6.2-12.0 [facility] Platelets (Bld) [#/Vol] 279 10*3/uL 150-450 [facility] No Panel InformationOrdered By: Carlos Cavazos on 07-13-2023 Estimated GFR (MDRD) Amer 118 mL/min >60 [facility] Comment on above: GFR Calc Estimated GFR (MDRD) Non-Af Amer 98 mL/min >60 [facility] Comment on above: Non- GFR Calc Levetiracetam (Keppra) Level 25.5 ug/mL 10.0-40.0 [facility] Comment on above: Performed at: [address] [id number] Director: Alpesh Vázquez MD, Phone: [phone] RBC Auto (Bld) [#/Vol]Ordere d By: Carlos Cavazos on 07-13-2023 RBC (Bld) [#/Vol] 4.90 10*6/uL 4.6-6.2 [facility] Serum or plasma calcium oral urement (mass/volume)Ordered By: Carlos Cavazos on 07-13-2023 Calcium [Mass/Vol] 9.1 mg/dL 8.5-10.1 [facility] Serum or plasma creatinine m easurement (mass/volume)Ordered By: Carlos Cavazos on 07-13-2023 Creatinine [Mass/Vol] 0.82 mg/dL 0.70-1.30 [facility] Comment on above: The validity of the calculated GFR & GFRAA in patients over 70 years has not been determined. Clinical correlation is essential. Serum or plasma urea nitroge n measurement (mass/volume)Ordered By: Carlos Cavazos on 07-13-2023 Urea nitrogen [Mass/Vol] 18 mg/dL 7-18 [facility] Thin prep Papanicolaou smear with manual screeningOrdered By: Carlos Cavazos on 07-13-2023 Thin prep Papanicolaou smear with manual screening 6 5-15 [facility] No Panel InformationOrdered By: Carlos Cavazos on 07-12-2023 Valproic Acid (Depakene) Level < 3 ug/mL 50-100 [facility] Laboratory - CoagulationOrde red By: Carlos Cavazos on 07-05-2023 INR Coag (Bld) [Relative time] 2.4 {INR} [facility] PT Coag (PPP) [Time] 26.3 s 11.7-14.9 [facility] Laboratory - CoagulationOrde red By: Carlos Cavazos on 07-02-2023 INR Coag (Bld) [Relative time] 1.5 {INR} [facility] PT Coag (PPP) [Time] 18.5 s 11.7-14.9 [facility] Laboratory - CoagulationOrde red By: Carlos Cavazos on 06-28-2023 INR Coag (Bld) [Relative time] 1.7 {INR} [facility] PT Coag (PPP) [Time] 20.5 s 11.7-14.9 [facility] 36on 06-25-[address] [place] [address] called in stating appt scheduled 07/10/23 Guy has to be made further out, pt being transported by cot. Changed appt to 08/13/23 per [facility] only avail time for transport, first avail with DR Buck at 10:00 AM. [facility] Laboratory - CoagulationOrde red By: Carlos Cavazos on 06-25-2023 INR Coag (Bld) [Relative time] 3.8 {INR} [facility] PT Coag (PPP) [Time] 38.2 s 11.7-14.9 [facility] Laboratory - CoagulationOrde red By: Carlos Cavazos on 06-21-2023 INR Coag (Bld) [Relative time] 3.2 {INR} [facility] PT Coag (PPP) [Time] 32.9 s 11.7-14.9 [facility] No Panel InformationOrdered By: Carlos Cavazos on 06-13-2023 Valproic Acid (Depakene) Level < 3 ug/mL 50-100 [facility] Laboratory - CoagulationOrde red By: Carlos Cavazos on 06-06-2023 PT Coag (PPP) [Time] 30.5 s 11.7-14.9 [facility] Platelet poor plasma interna tional normalized ratio (INR)Ordered By: Carlos Cavazos on 06-06-2023 INR Coag (PPP) [Relative time] 2.9 {INR} [facility] International normalized rat io (INR) calculationOrdered By: Carlos Cavazos on 05-23-2023 INR Coag (PPP) [Relative time] 2.6 {INR} [facility] Laboratory - CoagulationOrde red By: Carlos Cavazos on 05-23-2023 PT Coag (PPP) [Time] 27.7 s 11.7-14.9 [facility] Laboratory - CoagulationOrde red By: Carlos Cavazos on 05-09-2023 PT Coag (PPP) [Time] 24.1 s 11.7-14.9 [facility] Whole blood international no rmalized ratio (INR)Ordered By: Carlos Cavazos on 05-09-2023 INR Coag (Bld) [Relative time] 2.1 {INR} [facility] Laboratory - CoagulationOrde red By: Carlos Cavazos on 04-23-2023 PT Coag (PPP) [Time] 26.4 s 11.7-14.9 [facility] Whole blood international no rmalized ratio (INR)Ordered By: Carlos Cavazos on 04-23-2023 INR Coag (Bld) [Relative time] 2.4 {INR} [facility] INR in Blood by Coagulation assayOrdered By: Carlos Cavazos on 04-09-2023 INR Coag (Bld) [Relative time] 2.1 {INR} [facility] Laboratory - CoagulationOrde red By: Carlos Cavazos on 04-09-2023 PT Coag (PPP) [Time] 23.9 s 11.7-14.9 [facility] INR in Blood by Coagulation assayOrdered By: Carlos Cavazos on 04-02-2023 INR Coag (Bld) [Relative time] 2.2 {INR} [facility] Laboratory - CoagulationOrde red By: Carlos Cavazos on 04-02-2023 PT Coag (PPP) [Time] 24.5 s 11.7-14.9 [facility] INR in Blood by Coagulation assayOrdered By: Carlos Cavazos on 03-26-2023 INR Coag (Bld) [Relative time] 1.7 {INR} [facility] Laboratory - CoagulationOrde red By: Carlos Cavazos on 03-26-2023 PT Coag (PPP) [Time] 19.9 s 11.7-14.9 [facility] INR in Blood by Coagulation assayOrdered By: Carlos Cavazos on 03-22-2023 INR Coag (Bld) [Relative time] 1.3 {INR} [facility] Laboratory - CoagulationOrde red By: Carlos Cavazos on 03-22-2023 PT Coag (PPP) [Time] 16.4 s 11.7-14.9 [facility] INR in Blood by Coagulation assayOrdered By: Carlos Cavazos on 03-08-2023 INR Coag (Bld) [Relative time] 2.0 {INR} [facility] Laboratory - CoagulationOrde red By: Carlos Cavazos on 03-08-2023 PT Coag (PPP) [Time] 22.5 s 11.7-14.9 [facility] Laboratory - CoagulationOrde red By: Carlos Cavazos on 02-22-2023 INR Coag (Bld) [Relative time] 2.2 {INR} [facility] [facility] Comment on above: Critical Value > 4.0 Whole blood prothrombin time Ordered By: Carlos Cavazos on 02-22-2023 PT Coag (Bld) [Time] 24.0 s 11.7-14.9 [facility] INR in Blood by Coagulation assayOrdered By: Cliff Bruner on 02-15-2023 INR Coag (Bld) [Relative time] 2.0 {INR} [facility] Laboratory - CoagulationOrde red By: Cliff Bruner on 02-15-2023 PT Coag (PPP) [Time] 22.8 s 11.7-14.9 [facility] INR in Blood by Coagulation assayOrdered By: Carlos Cavazos on 02-08-2023 INR Coag (Bld) [Relative time] 2.1 {INR} [facility] Laboratory - CoagulationOrde red By: Carlos Cavazos on 02-08-2023 PT Coag (PPP) [Time] 23.5 s 11.7-14.9 [facility] INR in Blood by Coagulation assayOrdered By: Carlos Cavazos on 01-31-2023 INR Coag (Bld) [Relative time] 2.0 {INR} [facility] Laboratory - CoagulationOrde red By: Carlos Cavazos on 01-31-2023 PT Coag (PPP) [Time] 22.4 s 11.7-14.9 [facility] Laboratory - CoagulationOrde red By: Carlos Cavazos on 01-29-2023 INR Coag (Bld) [Relative time] 1.8 {INR} [facility] Comment on above: Critical Value > 4.0 Whole blood prothrombin time Ordered By: Carlos Cavazos on 01-29-2023 PT Coag (Bld) [Time] 19.9 s 11.7-14.9 [facility] INR in Blood by Coagulation assayOrdered By: Carlos Cavazos on 01-26-2023 INR Coag (Bld) [Relative time] 1.5 {INR} [facility] Laboratory - CoagulationOrde red By: Carlos Cavazos on 01-26-2023 PT Coag (PPP) [Time] 18.3 s 11.7-14.9 [facility] INR in Blood by Coagulation assayOrdered By: Carlos Cavazos on 01-24-2023 INR Coag (Bld) [Relative time] 1.3 {INR} [facility] Laboratory - CoagulationOrde red By: Carlos Cavazos on 01-24-2023 PT Coag (PPP) [Time] 16.2 s 11.7-14.9 [facility] Basophil percentageOrdered B y: Carlos Cavazos on 01-22-2023 Basophil percentage 0 SEEN /hpf 0-5 [facility] Bilirubin Test strip Ql (U)O rdered By: Carlos Cavazos on 01-22-2023 Bilirubin Ql (U) Negative Negative [facility] Calcium oxalate crystals det ection in urine sediment by light microscopyOrdered By: Carlos Cavazos on 01-22-2023 Calcium oxalate crystals LM Ql (Urine sed) 1+ /hpf [facility] Culture, urineOrdered By: Sharif Crouch on 01-22-2023 Bacteria identified Cx Nom (U) Positive [facility] Ketones Test strip Ql (U)Ord ered By: Carlos Cavazos on 01-22-2023 Ketones Ql (U) Negative Negative [facility] Mucus LM Ql (Urine sed)Order ed By: Carlos Cavazos on 01-22-2023 Mucus Ql (Urine sed) 1+ /hpf [facility] Nitrite Test strip Ql (U)Ord ered By: Carlos Cavazos on 01-22-2023 Nitrite Ql (U) Negative Negative [facility] Protein Test strip Ql (U)Ord ered By: Carlos Cavazos on 01-22-2023 Protein Ql (U) Negative Negative [facility] Squamous epithelial cells de tection in urine sediment by light microscopyOrdered By: Carlos Cavazos on 01-22-2023 Epithelial cells.squamous LM Ql (Urine sed) 0 SEEN /hpf 0-5 [facility] Urine blood detectionOrdered By: Carlos Cavazos on 01-22-2023 RBC Ql (U) Negative Negative [facility] RBC Ql (U) 0 SEEN /hpf 0-5 [facility] Urine clarityOrdered By: Ted Cavazos on 01-22-2023 Clarity (U) Sl. Cloudy Clear [facility] Urine color determinationOrd ered By: Carlos Cavazos on 01-22-2023 Color (U) Yellow Yellow [facility] Urine glucose detectionOrder ed By: Carlos Cavazos on 01-22-2023 Glucose Ql (U) Normal mg/dl Normal [facility] Urine leukocyte esterase det ection by dipstickOrdered By: Carlos Cavazos on 01-22-2023 Leukocyte esterase Test strip Ql (U) Negative Negative [facility] Urine pHOrdered By: Carlos flores on 01-22-2023 pH (U) 5.0 [pH] 5.0 - 8.0 [facility] Urine sediment bacteria coun t by microscopy (number/high power field)Ordered By: Carlos Cavazos on 01-22-2023 Bacteria LM.HPF (Urine sed) [#/Area] 2 /[HPF] None Seen [facility] Urine specific gravity measu rementOrdered By: Carlos Cavazos on 01-22-2023 Specific gravity (U) [Rel density] 1.025 1.002-1.030 [facility] Urobilinogen Auto test strip Ql (U)Ordered By: Carlos Cavazos on 01-22-2023 Urobilinogen Ql (U) Normal mg/dl Normal [facility] INR in Blood by Coagulation assayOrdered By: Carlos Cavazos on 01-10-2023 INR Coag (Bld) [Relative time] 2.0 {INR} [facility] Laboratory - CoagulationOrde red By: Carlos Cavazos on 01-10-2023 PT Coag (PPP) [Time] 22.6 s 11.7-14.9 [facility] INR in Blood by Coagulation assayOrdered By: Carlos Cavazos on 12-27-2022 INR Coag (Bld) [Relative time] 2.1 {INR} [facility] Laboratory - CoagulationOrde red By: Carlos Cavazos on 12-27-2022 PT Coag (PPP) [Time] 24.1 s 11.7-14.9 [facility] INR in Blood by Coagulation assayOrdered By: Carlos Cavazos on 12-21-2022 INR Coag (Bld) [Relative time] 2.4 {INR} [facility] Laboratory - CoagulationOrde red By: Carlos Cavazos on 12-21-2022 PT Coag (PPP) [Time] 26.7 s 11.7-14.9 [facility] Laboratory - CoagulationOrde red By: Carlos Cavazos on 12-14-2022 INR Coag (Bld) [Relative time] 2.3 {INR} [facility] Comment on above: Critical Value > 4.0 Whole blood prothrombin time Ordered By: Carlos Cavazos on 12-14-2022 PT Coag (Bld) [Time] 25.2 s 11.7-14.9 [facility] Laboratory - CoagulationOrde red By: Carlos Cavazos on 12-07-2022 INR Coag (Bld) [Relative time] 2.5 {INR} [facility] Comment on above: Critical Value > 4.0 Whole blood prothrombin time Ordered By: Carlos Cavazos on 12-07-2022 PT Coag (Bld) [Time] 26.9 s 11.7-14.9 [facility] Amorphous sediment detection in urine sediment by light microscopyOrdered By: Carlos Cavazos on 11-24-2022 Amorphous sediment LM Ql (Urine sed) 1+ [facility] Basophil percentageOrdered B y: Carlos Cavazos on 11-24-2022 Basophil percentage 0 SEEN /hpf 0-5 [facility] Bilirubin [Mass/Vol] 0.30 mg/dL 0.20-1.00 [facility] Comment on above: For patients on eltr ombopag therapy, use of Dimension [place] TBIL is not recommended. Chloride [Moles/Vol] 107 mmol/L 98-107 [facility] Glucose [Mass/Vol] 95 mg/dL 74-106 [facility] Potassium [Moles/Vol] 4.2 mmol/L 3.5-5.1 [facility] Protein [Mass/Vol] 6.9 g/dL 6.4-8.2 [facility] Sodium [Moles/Vol] 138 mmol/L 136-145 [facility] WBC (Bld) [#/Vol] 10.4 10*3/uL 4.4-11.0 [facility] Bilirubin Test strip Ql (U)O rdered By: Carlos Cavazos on 11-24-2022 Bilirubin Ql (U) Negative Negative [facility] Blood erythrocytes count (nu mber/volume)Ordered By: Carlos Cavazos on 11-24-2022 RBC (Bld) [#/Vol] 4.44 10*6/uL 4.6-6.2 [facility] Blood hemoglobin measurement (mass/volume)Ordered By: Carlos Cavazos on 11-24-2022 Hemoglobin (Bld) [Mass/Vol] 11.8 g/dL 13.0-16.5 [facility] Blood platelet mean volumeOr dered By: Carlos Cavazos on 11-24-2022 Platelet mean volume (Bld) [Entitic vol] 9.7 fL 6.2-12.0 [facility] Calcium oxalate crystals det ection in urine sediment by light microscopyOrdered By: Carlos Cavazos on 11-24-2022 Calcium oxalate crystals LM Ql (Urine sed) RARE /hpf [facility] Culture, urineOrdered By: Sharif Crouch on 11-24-2022 Bacteria identified Cx Nom (U) Positive [facility] Determination of erythrocyte mean corpuscular volume (MCV)Ordered By: Carlos Cavazos on 11-24-2022 MCV (RBC) [Entitic vol] 84.7 fL 80-94 [facility] Hematocrit Auto (Bld) [Volum e fraction]Ordered By: Carlos Cavazos on 11-24-2022 Hematocrit (Bld) [Volume fraction] 37.6 % 40-54 [facility] Ketones Test strip Ql (U)Ord ered By: Carlos Cavazos on 11-24-2022 Ketones Ql (U) Negative Negative [facility] Laboratory - Chemistry and C hemistry - challengeOrdered By: Carlos Cavazos on 11-24-2022 ALP [Catalytic activity/Vol] 103 U/L 45-117 [facility] ALT [Catalytic activity/Vol] 14 U/L 16-61 [facility] CO2 [Moles/Vol] 26.0 mmol/L 21.0-32.0 [facility] Globulin (S) [Mass/Vol] 4.0 g/dL 2.2-4.2 [facility] Urea nitrogen/Creatinine [Mass ratio] 24.1 mg/mg 10-20 [facility] Laboratory - Hematology and Cell countsOrdered By: Carlos Cavazos on 11-24-2022 Erythrocyte distribution width (RBC) [Entitic vol] 49.4 fL 35.1-43.9 [facility] Erythrocyte distribution width (RBC) [Ratio] 16.0 % 11.6-14.6 [facility] MCH (RBC) [Entitic mass] 26.6 pg 27.0-32.0 [facility] MCHC Auto (RBC) [Mass/Vol]Or dered By: Carlos Cavazos on 11-24-2022 MCHC (RBC) [Mass/Vol] 31.4 g/dL 32-36 [facility] Mucus LM Ql (Urine sed)Order ed By: Carlos Cavazos on 11-24-2022 Mucus Ql (Urine sed) 0 SEEN /hpf [facility] Nitrite Test strip Ql (U)Ord ered By: Carlos Cavazos on 11-24-2022 Nitrite Ql (U) Negative Negative [facility] No Panel InformationOrdered By: Carlos Cavazos on 11-24-2022 Estimated GFR (MDRD) Amer 118 mL/min >60 [facility] Comment on above: GFR Calc Estimated GFR (MDRD) Non-Af Amer 97 mL/min >60 [facility] Comment on above: Non- GFR Calc Platelets bldOrdered By: Pet er Kenny on 11-24-2022 Platelets (Bld) [#/Vol] 309 10*3/uL 150-450 [facility] Protein Test strip Ql (U)Ord ered By: Carlos Cavazos on 11-24-2022 Protein Ql (U) Negative Negative [facility] Serum or plasma albumin oral urement (mass/volume)Ordered By: Carlos Cavazos on 11-24-2022 Albumin [Mass/Vol] 2.9 g/dL 3.2-5.0 [facility] Serum or plasma albumin/glob ulin mass ratioOrdered By: Carlos Cavazos on 11-24-2022 Albumin/Globulin [Mass ratio] 0.7 {ratio} 0.9-2.4 [facility] Serum or plasma calcium oral urement (mass/volume)Ordered By: Carlos Cavazos on 11-24-2022 Calcium [Mass/Vol] 8.7 mg/dL 8.5-10.1 [facility] Serum or plasma creatinine m easurement (mass/volume)Ordered By: Carlos Cavazos on 11-24-2022 Creatinine [Mass/Vol] 0.83 mg/dL 0.70-1.30 [facility] Comment on above: The validity of the calculated GFR & GFRAA in patients over 70 years has not been determined. Clinical correlation is essential. Serum or plasma urea nitroge n measurement (mass/volume)Ordered By: Carlos Cavazos on 11-24-2022 Urea nitrogen [Mass/Vol] 20 mg/dL 7-18 [facility] Squamous epithelial cells de tection in urine sediment by light microscopyOrdered By: Carlos Cavazos on 11-24-2022 Epithelial cells.squamous LM Ql (Urine sed) 0 SEEN /hpf 0-5 [facility] Thin prep Papanicolaou smear with manual screeningOrdered By: Carlos Cavazos on 11-24-2022 Thin prep Papanicolaou smear with manual screening 10 U/L 15-37 [facility] Thin prep Papanicolaou smear with manual screening 5 5-15 [facility] Urine blood detectionOrdered By: Carlos Cavazos on 11-24-2022 RBC Ql (U) Negative Negative [facility] RBC Ql (U) 0 SEEN /hpf 0-5 [facility] Urine clarityOrdered By: Ted Cavazos on 11-24-2022 Clarity (U) Clear Clear [facility] Urine color determinationOrd ered By: Carlos Cavazos on 11-24-2022 Color (U) Yellow Yellow [facility] Urine glucose detectionOrder ed By: Carlos Cavazos on 11-24-2022 Glucose Ql (U) Normal mg/dl Normal [facility] Urine leukocyte esterase det ection by dipstickOrdered By: Carlos Cavazos on 11-24-2022 Leukocyte esterase Test strip Ql (U) Negative Negative [facility] Urine pHOrdered By: Carlos flores on 11-24-2022 pH (U) 7.0 [pH] 5.0 - 8.0 [facility] Urine sediment bacteria coun t by microscopy (number/high power field)Ordered By: Carlos Cavazos on 11-24-2022 Bacteria LM.HPF (Urine sed) [#/Area] 0 /[HPF] None Seen [facility] Urine specific gravity measu rementOrdered By: Carlos Cavazos on 11-24-2022 Specific gravity (U) [Rel density] 1.010 1.002-1.030 [facility] Urobilinogen Auto test strip Ql (U)Ordered By: Carlos Cavazos on 11-24-2022 Urobilinogen Ql (U) Normal mg/dl Normal [facility] Laboratory - CoagulationOrde red By: Carlos Cavazos on 11-23-2022 INR Coag (Bld) [Relative time] 2.2 {INR} [facility] Comment on above: Critical Value > 4.0 Whole blood prothrombin time Ordered By: Carlos Cavazos on 11-23-2022 PT Coag (Bld) [Time] 24.5 s 11.7-14.9 [facility] Basophil percentageOrdered B y: Carlos Cavazos on 11-22-2022 Chloride [Moles/Vol] 105 mmol/L 98-107 [facility] Glucose [Mass/Vol] 91 mg/dL 74-106 [facility] Potassium [Moles/Vol] 4.1 mmol/L 3.5-5.1 [facility] Sodium [Moles/Vol] 138 mmol/L 136-145 [facility] WBC (Bld) [#/Vol] 12.0 10*3/uL 4.4-11.0 [facility] Blood erythrocytes count (nu mber/volume)Ordered By: Carlos Cavazos on 11-22-2022 RBC (Bld) [#/Vol] 4.65 10*6/uL 4.6-6.2 [facility] Blood hemoglobin measurement (mass/volume)Ordered By: Carlos Cavazos on 11-22-2022 Hemoglobin (Bld) [Mass/Vol] 12.4 g/dL 13.0-16.5 [facility] Blood platelet mean volumeOr dered By: Carlos Cavazos on 11-22-2022 Platelet mean volume (Bld) [Entitic vol] 10.3 fL 6.2-12.0 [facility] Determination of erythrocyte mean corpuscular volume (MCV)Ordered By: Carlos Cavazos on 11-22-2022 MCV (RBC) [Entitic vol] 86.0 fL 80-94 [facility] Hematocrit Auto (Bld) [Volum e fraction]Ordered By: Carlos Cavazos on 11-22-2022 Hematocrit (Bld) [Volume fraction] 40.0 % 40-54 [facility] Laboratory - Chemistry and C hemistry - challengeOrdered By: Carlos Cavazos on 11-22-2022 CO2 [Moles/Vol] 25.0 mmol/L 21.0-32.0 [facility] Urea nitrogen/Creatinine [Mass ratio] 23.6 mg/mg 10-20 [facility] Laboratory - Hematology and Cell countsOrdered By: Carlos Cavazos on 11-22-2022 Erythrocyte distribution width (RBC) [Entitic vol] 50.0 fL 35.1-43.9 [facility] Erythrocyte distribution width (RBC) [Ratio] 15.9 % 11.6-14.6 [facility] MCH (RBC) [Entitic mass] 26.7 pg 27.0-32.0 [facility] MCHC Auto (RBC) [Mass/Vol]Or dered By: Carlos Cavazos on 11-22-2022 MCHC (RBC) [Mass/Vol] 31.0 g/dL 32-36 [facility] No Panel InformationOrdered By: Carlos Cavazos on 11-22-2022 Estimated GFR (MDRD) Amer 115 mL/min >60 [facility] Comment on above: GFR Calc Estimated GFR (MDRD) Non-Af Amer 95 mL/min >60 [facility] Comment on above: Non- GFR Calc Platelets bldOrdered By: Ted Cavazos on 11-22-2022 Platelets (Bld) [#/Vol] 320 10*3/uL 150-450 [facility] Serum or plasma calcium oral urement (mass/volume)Ordered By: Carlos Cavazos on 11-22-2022 Calcium [Mass/Vol] 8.7 mg/dL 8.5-10.1 [facility] Serum or plasma creatinine m easurement (mass/volume)Ordered By: Carlos Cavazos on 11-22-2022 Creatinine [Mass/Vol] 0.85 mg/dL 0.70-1.30 [facility] Comment on above: The validity of the calculated GFR & GFRAA in patients over 70 years has not been determined. Clinical correlation is essential. Serum or plasma urea nitroge n measurement (mass/volume)Ordered By: Carlos Cavazos on 11-22-2022 Urea nitrogen [Mass/Vol] 20 mg/dL 7-18 [facility] Thin prep Papanicolaou smear with manual screeningOrdered By: Carlos Cavazos on 11-22-2022 Thin prep Papanicolaou smear with manual screening 8 5-15 [facility] Laboratory - CoagulationOrde red By: Carlos Cavazos on 11-09-2022 INR Coag (Bld) [Relative time] 2.1 {INR} [facility] Comment on above: Critical Value > 4.0 Whole blood prothrombin time Ordered By: Carlos Cavazos on 11-09-2022 PT Coag (Bld) [Time] 22.6 s 11.7-14.9 [facility] Laboratory - CoagulationOrde red By: Carlos Cavazos on 10-26-2022 INR Coag (Bld) [Relative time] 2.6 {INR} [facility] Comment on above: Critical Value > 4.0 Whole blood prothrombin time Ordered By: Carlos Cavazos on 10-26-2022 PT Coag (Bld) [Time] 28.5 s 11.7-14.9 [facility] Laboratory - CoagulationOrde red By: Carlos Cavazos on 10-12-2022 INR Coag (Bld) [Relative time] 2.4 {INR} [facility] Comment on above: Critical Value > 4.0 Whole blood prothrombin time Ordered By: Carlos Cavazos on 10-12-2022 PT Coag (Bld) [Time] 26.4 s 11.7-14.9 [facility] Laboratory - CoagulationOrde red By: Carlos Cavazos on 10-05-2022 INR Coag (Bld) [Relative time] 2.6 {INR} [facility] Comment on above: Critical Value > 4.0 Whole blood prothrombin time Ordered By: Carlos Cavazos on 10-05-2022 PT Coag (Bld) [Time] 28.0 s 11.7-14.9 [facility] Laboratory - CoagulationOrde red By: Carlos Cavazos on 09-28-2022 INR Coag (Bld) [Relative time] 2.7 {INR} [facility] Comment on above: Critical Value > 4.0 Whole blood prothrombin time Ordered By: Carlos Cavazos on 09-28-2022 PT Coag (Bld) [Time] 28.9 s 11.7-14.9 [facility] Laboratory - CoagulationOrde red By: Carlos Cavazos on 09-14-2022 INR Coag (Bld) [Relative time] 2.5 {INR} [facility] Comment on above: Critical Value > 4.0 Whole blood prothrombin time Ordered By: Carlos Cvaazos on 09-14-2022 PT Coag (Bld) [Time] 27.4 s 11.7-14.9 [facility] Laboratory - CoagulationOrde red By: Carlos Cavazos on 08-31-2022 INR Coag (Bld) [Relative time] 2.3 {INR} [facility] Comment on above: Critical Value > 4.0 Whole blood prothrombin time Ordered By: Carlos Cavazos on 08-31-2022 PT Coag (Bld) [Time] 25.4 s 11.7-14.9 [facility] Basophil percentageOrdered B y: Carlos Cavazos on 08-23-2022 Chloride [Moles/Vol] 108 mmol/L 98-107 [facility] Glucose [Mass/Vol] 86 mg/dL 74-106 [facility] Potassium [Moles/Vol] 4.3 mmol/L 3.5-5.1 [facility] Sodium [Moles/Vol] 136 mmol/L 136-145 [facility] WBC (Bld) [#/Vol] 10.0 10*3/uL 4.4-11.0 [facility] Blood erythrocytes count (nu mber/volume)Ordered By: Carlos Cavazos on 08-23-2022 RBC (Bld) [#/Vol] 4.77 10*6/uL 4.6-6.2 [facility] Blood hemoglobin measurement (mass/volume)Ordered By: Carlos Cavazos on 08-23-2022 Hemoglobin (Bld) [Mass/Vol] 12.5 g/dL 13.0-16.5 [facility] Blood platelet mean volumeOr dered By: Carlos Cavazos on 08-23-2022 Platelet mean volume (Bld) [Entitic vol] 11.0 fL 6.2-12.0 [facility] Determination of erythrocyte mean corpuscular volume (MCV)Ordered By: Carlos Cavazos on 08-23-2022 MCV (RBC) [Entitic vol] 84.3 fL 80-94 [facility] Hematocrit Auto (Bld) [Volum e fraction]Ordered By: Carlos Cavazos on 08-23-2022 Hematocrit (Bld) [Volume fraction] 40.2 % 40-54 [facility] Laboratory - Chemistry and C hemistry - challengeOrdered By: Carlos Cavazos on 08-23-2022 CO2 [Moles/Vol] 24.0 mmol/L 21.0-32.0 [facility] Urea nitrogen/Creatinine [Mass ratio] 22.8 mg/mg 10-20 [facility] Laboratory - Hematology and Cell countsOrdered By: Carlos Cavazos on 08-23-2022 Erythrocyte distribution width (RBC) [Entitic vol] 49.3 fL 35.1-43.9 [facility] Erythrocyte distribution width (RBC) [Ratio] 16.0 % 11.6-14.6 [facility] MCH (RBC) [Entitic mass] 26.2 pg 27.0-32.0 [facility] MCHC Auto (RBC) [Mass/Vol]Or dered By: Carlos Cavazos on 08-23-2022 MCHC (RBC) [Mass/Vol] 31.1 g/dL 32-36 [facility] No Panel InformationOrdered By: Carlos Cavazos on 08-23-2022 Estimated GFR (MDRD) Amer 134 mL/min >60 [facility] Comment on above: GFR Calc Estimated GFR (MDRD) Non-Af Amer 110 mL/min >60 [facility] Comment on above: Non- GFR Calc Platelets bldOrdered By: Ted Cavazos on 08-23-2022 Platelets (Bld) [#/Vol] 268 10*3/uL 150-450 [facility] Serum or plasma calcium oral urement (mass/volume)Ordered By: Carlos Cavazos on 08-23-2022 Calcium [Mass/Vol] 9.1 mg/dL 8.5-10.1 [facility] Serum or plasma creatinine m easurement (mass/volume)Ordered By: Carlos Cavazos on 08-23-2022 Creatinine [Mass/Vol] 0.74 mg/dL 0.70-1.30 [facility] Comment on above: The validity of the calculated GFR & GFRAA in patients over 70 years has not been determined. Clinical correlation is essential. Serum or plasma urea nitroge n measurement (mass/volume)Ordered By: Carlos Cavazos on 08-23-2022 Urea nitrogen [Mass/Vol] 17 mg/dL 7-18 [facility] Thin prep Papanicolaou smear with manual screeningOrdered By: Carlos Cavazos on 08-23-2022 Thin prep Papanicolaou smear with manual screening 4 5-15 [facility] Laboratory - CoagulationOrde red By: Carlos Cavazos on 08-17-2022 INR Coag (Bld) [Relative time] 2.8 {INR} [facility] Comment on above: Critical Value > 4.0 Whole blood prothrombin time Ordered By: Carlos Cavazos on 08-17-2022 PT Coag (Bld) [Time] 29.6 s 11.7-14.9 [facility] Laboratory - CoagulationOrde red By: Carlos Cavazos on 08-14-2022 INR Coag (Bld) [Relative time] 3.9 {INR} [facility] Comment on above: Critical Value > 4.0 Whole blood prothrombin time Ordered By: Carlos Cavazos on 08-14-2022 PT Coag (Bld) [Time] 40.6 s 11.7-14.9 [facility] Laboratory - CoagulationOrde red By: Carlos Cavazos on 07-31-2022 INR Coag (Bld) [Relative time] 2.5 {INR} [facility] Comment on above: Critical Value > 4.0 Whole blood prothrombin time Ordered By: Carlos Cavazos on 07-31-2022 PT Coag (Bld) [Time] 26.8 s 11.7-14.9 [facility] INR in Blood by Coagulation assayOrdered By: Carlos Cavazos on 07-24-2022 INR Coag (Bld) [Relative time] 2.3 {INR} [facility] Laboratory - CoagulationOrde red By: Carlos Cavazos on 07-24-2022 PT Coag (PPP) [Time] 24.7 s 11.7-14.9 [facility] Laboratory - CoagulationOrde red By: Carlos Cavazos on 07-20-2022 INR Coag (Bld) [Relative time] 1.9 {INR} [facility] Comment on above: Critical Value > 4.0 Whole blood prothrombin time Ordered By: Carlos Cavazos on 07-20-2022 PT Coag (Bld) [Time] 20.6 s 11.7-14.9 [facility] Laboratory - CoagulationOrde red By: Carlos Cavazos on 07-17-2022 INR Coag (Bld) [Relative time] 1.3 {INR} [facility] Comment on above: Critical Value > 4.0 Whole blood prothrombin time Ordered By: Carlos Cavazos on 07-17-2022 PT Coag (Bld) [Time] 15.9 s 11.7-14.9 [facility] Basophil percentageOrdered B y: Carlos Cavazos on 07-11-2022 Chloride [Moles/Vol] 105 mmol/L 98-107 [facility] Glucose [Mass/Vol] 97 mg/dL 74-106 [facility] Potassium [Moles/Vol] 3.9 mmol/L 3.5-5.1 [facility] Sodium [Moles/Vol] 140 mmol/L 136-145 [facility] WBC (Bld) [#/Vol] 9.4 10*3/uL 4.4-11.0 [facility] Blood erythrocytes count (nu mber/volume)Ordered By: Carlos Cavazos on 07-11-2022 RBC (Bld) [#/Vol] 4.66 10*6/uL 4.6-6.2 [facility] Blood hemoglobin measurement (mass/volume)Ordered By: Carlos Cavazos on 07-11-2022 Hemoglobin (Bld) [Mass/Vol] 12.0 g/dL 13.0-16.5 [facility] Blood platelet mean volumeOr dered By: Carlos Cavazos on 07-11-2022 Platelet mean volume (Bld) [Entitic vol] 10.4 fL 6.2-12.0 [facility] Determination of erythrocyte mean corpuscular volume (MCV)Ordered By: Carlos Cavazos on 07-11-2022 MCV (RBC) [Entitic vol] 83.7 fL 80-94 [facility] Hematocrit Auto (Bld) [Volum e fraction]Ordered By: Carlos Cavazos on 07-11-2022 Hematocrit (Bld) [Volume fraction] 39.0 % 40-54 [facility] Laboratory - Chemistry and C hemistry - challengeOrdered By: Carlos Cavazos on 07-11-2022 CO2 [Moles/Vol] 28.0 mmol/L 21.0-32.0 [facility] Urea nitrogen/Creatinine [Mass ratio] 23.0 mg/mg 10-20 [facility] Laboratory - Hematology and Cell countsOrdered By: Carlos Cavazos on 07-11-2022 Erythrocyte distribution width (RBC) [Entitic vol] 51.0 fL 35.1-43.9 [facility] Erythrocyte distribution width (RBC) [Ratio] 16.8 % 11.6-14.6 [facility] MCH (RBC) [Entitic mass] 25.8 pg 27.0-32.0 [facility] MCHC Auto (RBC) [Mass/Vol]Or dered By: Carlos Cavazos on 07-11-2022 MCHC (RBC) [Mass/Vol] 30.8 g/dL 32-36 [facility] No Panel InformationOrdered By: Carlos Cavazos on 07-11-2022 Estimated GFR (MDRD) Amer 126 mL/min >60 [facility] Comment on above: GFR Calc Estimated GFR (MDRD) Non-Af Amer 104 mL/min >60 [facility] Comment on above: Non- GFR Calc Platelets bldOrdered By: Ted Cavazos on 07-11-2022 Platelets (Bld) [#/Vol] 291 10*3/uL 150-450 [facility] Serum or plasma calcium oral urement (mass/volume)Ordered By: Carlos Cavazos on 07-11-2022 Calcium [Mass/Vol] 9.2 mg/dL 8.5-10.1 [facility] Serum or plasma creatinine m easurement (mass/volume)Ordered By: Carlos Cavazos on 07-11-2022 Creatinine [Mass/Vol] 0.78 mg/dL 0.70-1.30 [facility] Comment on above: The validity of the calculated GFR & GFRAA in patients over 70 years has not been determined. Clinical correlation is essential. Serum or plasma urea nitroge n measurement (mass/volume)Ordered By: Carlos Cavazos on 07-11-2022 Urea nitrogen [Mass/Vol] 18 mg/dL 7-18 [facility] Thin prep Papanicolaou smear with manual screeningOrdered By: Carlos Cavazos on 07-11-2022 Thin prep Papanicolaou smear with manual screening 7 5-15 [facility] Laboratory - CoagulationOrde red By: Carlos Cavazos on 07-10-2022 INR Coag (Bld) [Relative time] 1.8 {INR} [facility] Comment on above: Critical Value > 4.0 Whole blood prothrombin time Ordered By: Carlos Cavazos on 07-10-2022 PT Coag (Bld) [Time] 21.0 s 11.7-14.9 [facility] Laboratory - CoagulationOrde red By: Carlos Cavazos on 07-03-2022 INR Coag (Bld) [Relative time] 1.9 {INR} [facility] Comment on above: Critical Value > 4.0 Whole blood prothrombin time Ordered By: Carlos Cavazos on 07-03-2022 PT Coag (Bld) [Time] 22.7 s 11.7-14.9 [facility] INR in Blood by Coagulation assayOrdered By: Carlos Cavazos on 06-27-2022 INR Coag (Bld) [Relative time] 2.9 {INR} [facility] Laboratory - CoagulationOrde red By: Carlos Cavazos on 06-27-2022 PT Coag (PPP) [Time] 29.9 s 11.7-14.9 [facility] Laboratory - CoagulationOrde red By: Carlos Cavazos on 06-13-2022 INR Coag (Bld) [Relative time] 2.1 {INR} [facility] Comment on above: Critical Value > 4.0 Whole blood prothrombin time Ordered By: Carlos Cavazos on 06-13-2022 PT Coag (Bld) [Time] 24.4 s 11.7-14.9 [facility] Laboratory - CoagulationOrde red By: Carlos Cavazos on 06-06-2022 INR Coag (Bld) [Relative time] 1.5 {INR} [facility] Comment on above: Critical Value > 4.0 Whole blood prothrombin time Ordered By: Carlos Cavazos on 06-06-2022 PT Coag (Bld) [Time] 18.4 s 11.7-14.9 [facility] Basophil percentageOrdered B y: Carlos Cavazos on 05-30-2022 Chloride [Moles/Vol] 105 mmol/L 98-107 [facility] Glucose [Mass/Vol] 95 mg/dL 74-106 [facility] Potassium [Moles/Vol] 3.9 mmol/L 3.5-5.1 [facility] Sodium [Moles/Vol] 140 mmol/L 136-145 [facility] WBC (Bld) [#/Vol] 7.6 10*3/uL 4.4-11.0 [facility] Blood erythrocytes count (nu mber/volume)Ordered By: Carlos Cavazos on 05-30-2022 RBC (Bld) [#/Vol] 4.79 10*6/uL 4.6-6.2 [facility] Blood hemoglobin measurement (mass/volume)Ordered By: Carlos Cavazos on 05-30-2022 Hemoglobin (Bld) [Mass/Vol] 12.1 g/dL 13.0-16.5 [facility] Blood platelet mean volumeOr dered By: Carlos Cavazos on 05-30-2022 Platelet mean volume (Bld) [Entitic vol] 10.4 fL 6.2-12.0 [facility] Determination of erythrocyte mean corpuscular volume (MCV)Ordered By: Carlos Cavazos on 05-30-2022 MCV (RBC) [Entitic vol] 82.5 fL 80-94 [facility] Hematocrit Auto (Bld) [Volum e fraction]Ordered By: Carlos Cavazos on 05-30-2022 Hematocrit (Bld) [Volume fraction] 39.5 % 40-54 [facility] INR in Blood by Coagulation assayOrdered By: Carlos Cavazos on 05-30-2022 INR Coag (Bld) [Relative time] 1.9 {INR} [facility] Laboratory - Chemistry and C hemistry - challengeOrdered By: Carlos Cavazos on 05-30-2022 CO2 [Moles/Vol] 27.0 mmol/L 21.0-32.0 [facility] Urea nitrogen/Creatinine [Mass ratio] 21.4 mg/mg 10-20 [facility] Laboratory - CoagulationOrde red By: Carlos Cavazos on 05-30-2022 PT Coag (PPP) [Time] 21.6 s 11.7-14.9 [facility] Laboratory - Hematology and Cell countsOrdered By: Carlos Cavazos on 05-30-2022 Erythrocyte distribution width (RBC) [Entitic vol] 48.8 fL 35.1-43.9 [facility] Erythrocyte distribution width (RBC) [Ratio] 16.2 % 11.6-14.6 [facility] MCH (RBC) [Entitic mass] 25.3 pg 27.0-32.0 [facility] MCHC Auto (RBC) [Mass/Vol]Or dered By: Carlos Cavazos on 05-30-2022 MCHC (RBC) [Mass/Vol] 30.6 g/dL 32- [facility] No Panel InformationOrdered By: Carlos Cavazos on 05-30-2022 Estimated GFR (MDRD) Amer 133 mL/min >60 [facility] Comment on above: GFR Calc Estimated GFR (MDRD) Non-Af Amer 110 mL/min >60 [facility] Comment on above: Non- GFR Calc Platelets bldOrdered By: Ted Cavazos on 05-30-2022 Platelets (Bld) [#/Vol] 308 10*3/uL 150-450 [facility] Serum or plasma calcium oral urement (mass/volume)Ordered By: Carlos Cavazos on 05-30-2022 Calcium [Mass/Vol] 9.1 mg/dL 8.5-10.1 [facility] Serum or plasma creatinine m easurement (mass/volume)Ordered By: Carlos Cavazos on 05-30-2022 Creatinine [Mass/Vol] 0.75 mg/dL 0.70-1.30 [facility] Comment on above: The validity of the calculated GFR & GFRAA in patients over 70 years has not been determined. Clinical correlation is essential. Serum or plasma urea nitroge n measurement (mass/volume)Ordered By: Carlos Cavazos on 05-30-2022 Urea nitrogen [Mass/Vol] 16 mg/dL 7-18 [facility] Thin prep Papanicolaou smear with manual screeningOrdered By: Carlos Cavazos on 05-30-2022 Thin prep Papanicolaou smear with manual screening 8 5-15 [facility] Laboratory - CoagulationOrde red By: Carlos Cavazos on 05-16-2022 INR Coag (Bld) [Relative time] 2.6 {INR} [facility] Comment on above: Critical Value > 4.0 Whole blood prothrombin time Ordered By: Carlos Cavazos on 05-16-2022 PT Coag (Bld) [Time] 29.9 s 11.7-14.9 [facility] Laboratory - CoagulationOrde red By: Carlos Cavazos on 05-02-2022 INR Coag (Bld) [Relative time] 2.0 {INR} [facility] Comment on above: Critical Value > 4.0 Whole blood prothrombin time Ordered By: Carlos Cavazos on 05-02-2022 PT Coag (Bld) [Time] 23.2 s 11.7-14.9 [facility] Laboratory - CoagulationOrde red By: Carlos Cavazos on 04-27-2022 INR Coag (Bld) [Relative time] 2.7 {INR} [facility] Comment on above: Critical Value > 4.0 Whole blood prothrombin time Ordered By: Carlos Cavazos on 04-27-2022 PT Coag (Bld) [Time] 31.1 s 11.7-14.9 [facility] Laboratory - CoagulationOrde red By: Carlos Cavazos on 04-26-2022 INR Coag (Bld) [Relative time] 2.8 {INR} [facility] Comment on above: Critical Value > 4.0 Whole blood prothrombin time Ordered By: Carlos Cavazos on 04-26-2022 PT Coag (Bld) [Time] 32.6 s 11.7-14.9 [facility] Laboratory - CoagulationOrde red By: Carlos Cavazos on 04-11-2022 INR Coag (Bld) [Relative time] 2.9 {INR} [facility] Comment on above: Critical Value > 4.0 Whole blood prothrombin time Ordered By: Carlos Cavazos on 04-11-2022 PT Coag (Bld) [Time] 32.8 s 11.7-14.9 [facility] Laboratory - CoagulationOrde red By: Carlos Cavazos on 03-28-2022 INR Coag (Bld) [Relative time] 2.1 {INR} [facility] Comment on above: Critical Value > 4.0 Whole blood prothrombin time Ordered By: Carlos Cavazos on 03-28-2022 PT Coag (Bld) [Time] 24.8 s 11.7-14.9 [facility] Laboratory - CoagulationOrde red By: Carlos Cavazos on 03-23-2022 INR Coag (Bld) [Relative time] 1.7 {INR} [facility] Comment on above: Critical Value > 4.0 Whole blood prothrombin time Ordered By: Carlos Cavazos on 03-23-2022 PT Coag (Bld) [Time] 20.9 s 11.7-14.9 [facility] Laboratory - CoagulationOrde red By: Carlos Cavazos on 03-16-2022 INR Coag (Bld) [Relative time] 1.7 {INR} [facility] Comment on above: Critical Value > 4.0 Whole blood prothrombin time Ordered By: Carlos Cavazos on 03-16-2022 PT Coag (Bld) [Time] 19.9 s 11.7-14.9 [facility] Laboratory - CoagulationOrde red By: Carlos Cavazos on 03-09-2022 INR Coag (Bld) [Relative time] 1.8 {INR} [facility] Comment on above: Critical Value > 4.0 Whole blood prothrombin time Ordered By: Carlos Cavazos on 03-09-2022 PT Coag (Bld) [Time] 21.9 s 11.7-14.9 [facility] Laboratory - CoagulationOrde red By: Carlos Cavazos on 03-06-2022 INR Coag (Bld) [Relative time] 1.7 {INR} [facility] Comment on above: Critical Value > 4.0 Whole blood prothrombin time Ordered By: Carlos Cavazos on 03-06-2022 PT Coag (Bld) [Time] 20.0 s 11.7-14.9 [facility] CBC with Auto Differentialon 03-02-2022 Absolute [...] 10*3/uL [facility] Test Performed by [facility], [address] [place] [id number] [place] [address] [facility] [address] HEAD WO CONTRASTon 2021 Patient Name: ANDREW SIFUENTES Computed Tomography ACCESSION EXAM DATE/TIME PROCEDURE ORDERING PROVIDER [id number] 03/02/2022 13:[address] Head or Brain w/o [id number] -LANETTE MUNGUIA Contrast CPT code 66418 Reason For Exam (CT Head or Brain [...] tubes (parent active on the left for MOTORS AND CONTR[employer]S TESTER shunting and disconnected on the right). 2. No definite evidence of acute infarction (MRI more sensitive), mass lesion, nor hemorrhage. Report Dictated on --- Final --- Dictated: 03/02/2022 1:35 pm Dictating Physician: MD GUTIERREZ WILLIAM Signed Date and Time: 03/02/2022 1:39 pm Signed by: MD GUTIERREZ WILLIAM Transcribed Date and Time: 03/02/2022 1:35 [facility] RAD Anant Gutierrez MD - 03/02/2022 [facility] Name[id number] Tomography ACCESSION EXAM DATE/TIME PROCEDURE ORDERING PROVIDER [id number] 03/02/2022 13:[address] Head or Brain w/o [id number] -LANETTE MUNGUIA Contrast CPT code 98921 Reason For Exam (CT Head or Brain [...] tubes (parent active on the left for MOTORS AND CONTR[employer]S TESTER shunting and disconnected on the right). 2. [...] Tomography ACCESSION EXAM DATE/TIME PROCEDURE ORDERING PROVIDER [id number] 03/02/2022 13:[address] Head or Brain w/o [id number] -LANETTE MUNGUIA Contrast CPT code 27896 Reason For Exam (CT Head or Brain [...] tubes (parent active on the left for MOTORS AND CONTR[employer]S TESTER shunting and disconnected on the right). 2. No definite evidence of acute infarction (MRI more sensitive), mass lesion, nor hemorrhage. Report Dictated on Final Dictated: 03/02/2022 1:35 pm Dictating Physician: MD GUTIERREZ WILLIAM Signed Date and Time: 03/02/2022 1:39 pm Signed by: MD GUTIERREZ WILLIAM Transcribed Date and Time: 03/02/2022 1:35 Normal [facility] Comp Metabolic Panelon 03-02 Calcium [Mass/Vol] 9.1 mg/dL Normal 8.4-10.4 [facility] Comment on above: Performed By: #### H EMDF, PT, CMP3 ####[facility] [id number] [place] [address] ALP [Catalytic activity/Vol] 128 U/L High 38-126 [facility] Comment on above: Performed By: #### H TIERA PT CMP3 ####[id number] [place], [place] ALT [Catalytic activity/Vol] 12 U/L Normal 0-49 [facility] Comment on above: Result Comment: The ALT test is performed by an updated assay method. Please note that the reference intervals have been changed and are now sex specific. Performed By: #### H TIERA PT CMP3 ####[address] [place], [place] Anion gap [Moles/Vol] 7 mmol/L Normal 3-13 [facility] Comment on above: Performed By: #### H CHRISTEL MOTT CMP3 ####[address] [address] [place], [place] AST [Catalytic activity/Vol] 24 U/L Normal 15-46 [facility] Comment on above: Performed By: #### H CHRISTEL MOTT CMP3 ####[address] [address] [place], [place] Bilirubin [Mass/Vol] 0.4 mg/dL Normal 0.2-1.3 [facility] Comment on above: Performed By: #### H CHRISTEL MOTT CMP3 ####[address] CO2 [Moles/Vol] 27 mmol/L Normal 22-30 [facility] Comment on above: Performed By: #### H TIERA PT CMP3 ####[id number] [place], [place] Glucose [Mass/Vol] 109 mg/dL High 70-100 [facility] Comment on above: Performed By: #### H TIERA PT CMP3 ####[address] [address] [place], [place] Protein [Mass/Vol] 8.1 g/dL Normal 6.3-8.2 [facility] Comment on above: Performed By: #### H TIERA PT CMP3 ####[address] [address] [place], [place] Urea nitrogen [Mass/Vol] 22 mg/dL High 7-17 [facility] Comment on above: Performed By: #### H CHRISTEL MOTT CMP3 ####[facility] [id number] [place], [place] Creatinine [Mass/Vol] 0.63 mg/dL Normal 0.52-1.25 [facility] Comment on above: Performed By: #### H CHRISTEL MOTT CMP3 ####[id number] [place], [place] eGFR OTHER > 90.0 Normal >60 [facility] Comment on above: Result Comment: KDIG [...] #### H CHRISTEL MOTT CMP3 ####[facility] [id number] [place], [place] GFR/1.73 sq M.predicted among blacks MDRD (S/P/Bld) [Vol rate/Area] mL/min/{1.73_m2} Normal >60 [facility] Comment on above: Performed By: #### H CHRISTEL MOTT CMP3 ####[facility] [id number] [place], [place] Albumin [Mass/Vol] 4.1 g/dL Normal 3.5-5.0 [facility] Comment on above: Performed By: #### H CHRISTEL MOTT CMP3 ####[facility] [place] [address] Chloride [Moles/Vol] 106 mmol/L Normal 98-107 [facility] Comment on above: Performed By: #### H TIERA PT, CMP3 ####[facility] [place] [address] Potassium [Moles/Vol] 3.7 mmol/L Normal 3.5-5.1 [facility] Comment on above: Performed By: #### H TIERA PT, CMP3 ####[facility] [place] [address] Sodium [Moles/Vol] 140 mmol/L Normal 135-145 [facility] Comment on above: Performed By: #### H CHRISTEL MOTT, CMP3 ####[id number] [place] [address] Comprehensive Metabolic Pane kiel 03-02-2022 Albumin [Mass/Vol] 4.1 g/dL 3.5 - 5.0 g/dL [facility] ALP (Bld) [Catalytic activity/Vol] 128 U/L High 38 - 126 U/L [facility] ALT [Catalytic activity/Vol] 12 U/L 0 - 49 U/L [facility] Comment on above: The ALT test [...] P INF mL/min [facility] EGFR IF NonAfrican Mauritian mL/min 60 - PINF mL/min [facility] Comment [...] 109 mg/dL High 70 - 100 mg/dL [facility] Interpretation and review of laboratory results Abnormal [facility] Potassium [Moles/Vol] 3.7 mmol/L 3.5 - 5.1 mmol/L [facility] Protein [Mass/Vol] 8.1 g/dL 6.3 - 8.2 g/dL [facility] Sodium [Moles/Vol] 140 mmol/L 135 - 145 mmol/L [facility] Urea nitrogen (BldV) [Mass/Vol] 22 mg/dL High 7 - 17 mg/dL [facility] Test Performed by [id number] [place] [address] LAB [facility] ED Provider Noteon 2 ED Provider Note [facility] EMERGENCY DEPT EMERGENCY DEPARTMENT ENCOUNTER [...] male medical history of hydrocephalus status post MOTORS AND CONTROLS TESTER shunt, history of DVT on Coumadin who presents to the emergency department from [facility] for evaluation following mechanical fall. Patient rolled out of bed. Unwitnessed. Found down on ground by nursing staff. Nonambulatory at baseline. Patient reports he did not hit his head. Has no acute complaints. Denies any pain or traumatic injury. Per nursing protocol at assisted, sent to emergency department due to unwitnessed [...] Hemorrhoids Hydrocephalus, adult (HCC) Kidney stone Neuropathy MOTORS AND CONTROLS TESTER (ventriculoperitoneal) shunt status SURGICAL HISTORY Past Surgical [...] CONTRAST R (more content not included)... Normal ET Water Hemogram w/ Autod[employer]on 03-02 Abs Baso Cnt 0.2 10*3/uL [facility] 0[facility]0-0.2 [facility] Performed By: #### H EMDF, PT, CMP3 ####[id number] [place] [address] Abs Neutrophile Cnt 10.7 10*3/uL High 1.8-7.0 [facility] Comment on above: Performed By: #### H EMDF PT, CMP3 ####[address] [address] Basophils/100 WBC (Bld) 1.1 % Normal 0.0-2.0 [facility] Comment on above: Performed By: #### H EMDF PT, CMP3 ####[address] Eosinophils (Bld) [#/Vol] 0.1 10*3/uL Normal 0.0-0.5 [facility] Comment on above: Performed By: #### H EMDF PT, CMP3 ####[address] Eosinophils/100 WBC (Bld) 0.5 % Low 1.0-6.0 [facility] Comment on above: Performed By: #### H EMDF PT, CMP3 ####[address] Granulocytes/100 WBC (Bld) 73.9 % Normal 40.0-80.0 [facility] Comment on above: Performed By: #### H EMDF PT, CMP3 ####[address] Lymphocytes (Bld) [#/Vol] 3.0 10*3/uL Normal 1.0-4.3 [facility] Comment on above: Performed By: #### H EMDF PT, CMP3 ####[address] Lymphocytes/100 WBC (Bld) 20.6 % Normal 20.0-40.0 [facility] Comment on above: Performed By: #### H EMDF PT, CMP3 ####[address] Monocytes (Bld) [#/Vol] 0.6 10*3/uL Normal 0.0-0.8 [facility] Comment on above: Performed By: #### H TIERA PT, CMP3 ####[id number] [place], [place] Monocytes/100 WBC (Bld) 3.9 % Normal 2.0-10.0 [facility] Comment on above: Performed By: #### H EMDF PT, CMP3 ####[id number] [place], [place] Platelet mean volume (Bld) [Entitic vol] 8.5 fL Normal 7.4-12.4 [facility] Comment on above: Result Comment: MPV is a calculated measurement using platelet volume ratio. Performed By: #### H EMDHeydi PT, CMP3 ####[address] Platelets (Bld) [#/Vol] 411 10*3/uL Normal 140-440 [facility] Comment on above: Performed By: #### H EMDHeydi PT, CMP3 ####[id number] [place], [place] Erythrocyte distribution width (RBC) [Ratio] 17.0 % High 11.5-14.5 [facility] Comment on above: Performed By: #### H EMDF PT, CMP3 ####[address] [place], [place] Hematocrit (Bld) [Volume fraction] 37.4 % Low 40.0-52.0 [facility] Comment on above: Performed By: #### H EMDF, PT, CMP3 ####[address] Hemoglobin (Bld) [Mass/Vol] 12.1 g/dL Low 13.0-18.0 [facility] Comment on above: Performed By: #### H EMDF, PT, CMP3 ####[id number] [place], [place] MCH (RBC) [Entitic mass] 26.2 pg Normal 26.0-34.0 [facility] Comment on above: Performed By: #### H EMDF, PT, CMP3 ####[id number] [place], [place] MCHC 32.3 % Normal 32.0-36.0 [facility] Comment on above: Performed By: #### H EMDF, PT, CMP3 ####[address] MCV (RBC) [Entitic vol] 81.1 fL Normal 80.0-98.0 [facility] Comment on above: Performed By: #### H EMDF PT, CMP3 ####[id number] [place], [place] RBC (Bld) [#/Vol] 4.61 10*6/uL Normal 4.40-5.90 [facility] Comment on above: Performed By: #### H EMDF, PT, CMP3 ####[address] WBC (Bld) [#/Vol] 14.5 10*3/uL High 3.6-10.7 [facility] Comment on above: Performed By: #### H EMDF, PT, CMP3 ####[address] Prothrombin Timeon 2 INR 1.9 High 0.9-1.1 [facility] Comment on above: Result Comment: Harry [...] Performed By: #### H EMDF, PT, CMP3 ####[address] [address] PT Coag (PPP) [Time] 18.9 s High 9.0-12.0 [facility] Comment on above: Result Comment: . Performed By: #### H EMDF, PT, CMP3 ####[facility] [place] [address] Protime-INRon 03-02-2022 INR Coag (Bld) [Relative time] 1.9 {INR} High [facility] Comment on above: Recommended Anticoag ulant [...] Interpretation and review of laboratory results Abnormal [facility] PT Coag (PPP) [Time] 18.9 s High 9.0 - 12.0 s [facility] Comment on above: . Test Performed by [facility], [address] [place] [address] [facility] Laboratory - CoagulationOrde red By: Carlos Cavazos on 02-20-2022 INR Coag (Bld) [Relative time] 2.6 {INR} [facility] Comment on above: Critical Value > 4.0 Whole blood prothrombin time Ordered By: Carlos Cavazos on 02-20-2022 PT Coag (Bld) [Time] 30.1 s 11.7-14.9 [facility] Laboratory - CoagulationOrde red By: Carlos Cavazos on 02-13-2022 INR Coag (Bld) [Relative time] 2.3 {INR} [facility] Comment on above: Critical Value > 4.0 Whole blood prothrombin time Ordered By: Carlos Cavazos on 02-13-2022 PT Coag (Bld) [Time] 26.7 s 11.7-14.9 [facility] Laboratory - CoagulationOrde red By: Carlos Cavazos on 02-06-2022 INR Coag (Bld) [Relative time] 2.3 {INR} [facility] Comment on above: Critical Value > 4.0 Whole blood prothrombin time Ordered By: Carlos Cavazos on 02-06-2022 PT Coag (Bld) [Time] 26.6 s 11.7-14.9 [facility] Laboratory - Coagulationon 0 01-30-2022 INR Coag (Bld) [Relative time] 1.7 {INR} [facility] Work Phone: Comment on above: Critical Value > 4.0 Whole blood prothrombin time on 01-30-2022 PT Coag (Bld) [Time] 20.1 s 11.7-14.9 [facility] Work Phone: Laboratory - Coagulationon 0 01-26-2022 INR Coag (Bld) [Relative time] 1.8 {INR} [facility] Work Phone: Comment on above: Critical Value > 4.0 Whole blood prothrombin time on 01-26-2022 PT Coag (Bld) [Time] 21.8 s 11.7-14.9 [facility] Work Phone: Laboratory - Coagulationon 0 01-19-2022 INR Coag (Bld) [Relative time] 2.2 {INR} [facility] Work Phone: Comment on above: Critical Value > 4.0 Whole blood prothrombin time on 01-19-2022 PT Coag (Bld) [Time] 25.7 s 11.7-14.9 [facility] Work Phone: INR in Blood by Coagulation assayon 01-10-2022 INR Coag (Bld) [Relative time] 1.8 {INR} [facility] Work Phone: Laboratory - Coagulationon 0 01-10-2022 PT Coag (PPP) [Time] 20.9 s 11.7-14.9 [facility] Work Phone: Basophil percentageon 2021 Chloride [Moles/Vol] 107 mmol/L 98-107 [facility] Work Phone: Glucose [Mass/Vol] 82 mg/dL 74-106 [facility] Work Phone: Potassium [Moles/Vol] 3.4 mmol/L 3.5-5.1 [facility] Work [facility]: Sodium [Moles/Vol] 143 mmol/L 136-145 [facility] Work Phone: WBC (Bld) [#/Vol] 10.4 10*3/uL 4.4-11.0 [facility] Work Phone: Blood erythrocytes count (nu mber/volume)on 01-05-2022 RBC (Bld) [#/Vol] 4.27 10*6/uL 4.6-6.2 [facility] Work Phone: Blood hemoglobin measurement (mass/volume)on 01-05-2022 Hemoglobin (Bld) [Mass/Vol] 11.2 g/dL 13.0-16.5 [facility] Work Phone: Blood platelet mean volumeon 01-05-2022 Platelet mean volume (Bld) [Entitic vol] 10.3 fL 6.2-12.0 [facility] Work Phone: Determination of erythrocyte mean corpuscular volume (MCV)on 01-05-2022 MCV (RBC) [Entitic vol] 84.8 fL 80-94 [facility] Work Phone: Hematocrit Auto (Bld) [Volum e fraction]on 01-05-2022 Hematocrit (Bld) [Volume fraction] 36.2 % 40-54 [facility] Work Phone: Laboratory - Chemistry and C hemistry - challengeon 01-05-2022 CO2 [Moles/Vol] 28.0 mmol/L 21.0-32.0 [facility] Work Phone: Urea nitrogen/Creatinine [Mass ratio] 20.0 mg/mg 10-20 [facility] Work Phone: Laboratory - Hematology and Cell countson 01-05-2022 Erythrocyte distribution width (RBC) [Entitic vol] 51.8 fL 35.1-43.9 [facility] Work Phone: Erythrocyte distribution width (RBC) [Ratio] 16.8 % 11.6-14.6 [facility] Work Phone: MCH (RBC) [Entitic mass] 26.2 pg 27.0-32.0 [facility] Work Phone: MCHC Auto (RBC) [Mass/Vol]on 01-05-2022 MCHC (RBC) [Mass/Vol] 30.9 g/dL 32-36 [facility] Work Phone: No Panel Informationon 01-05 Estimated GFR (MDRD) Amer 133 mL/min >60 [facility] Work Phone: Comment on above: GFR Calc Estimated GFR (MDRD) Non-Af Amer 110 mL/min >60 [facility] Work Phone: Comment on above: Non- GFR Calc Platelets bldon 01-05-2022 Platelets (Bld) [#/Vol] 373 10*3/uL 150-450 [facility] Work Phone: Serum or plasma calcium oral urement (mass/volume)on 01-05-2022 Calcium [Mass/Vol] 8.8 mg/dL 8.5-10.1 [facility] Work Phone: Serum or plasma creatinine m easurement (mass/volume)on 01-05-2022 Creatinine [Mass/Vol] 0.75 mg/dL 0.70-1.30 [facility] Work Phone: Comment on above: The validity of the calculated GFR & GFRAA in patients over 70 years has not been determined. Clinical correlation is essential. Serum or plasma urea nitroge n measurement (mass/volume)on 01-05-2022 Urea nitrogen [Mass/Vol] 15 mg/dL 7-18 [facility] Work Phone: Thin prep Papanicolaou smear with manual screeningon 01-05-2022 Thin prep Papanicolaou smear with manual screening 8 5-15 [facility] Work Phone: Laboratory - Coagulationon 0 12-30-2021 INR Coag (Bld) [Relative time] 2.0 {INR} [facility] Work Phone: Comment on above: Critical Value > 4.0 Whole blood prothrombin time on 12-30-2021 PT Coag (Bld) [Time] 23.7 s 11.7-14.9 [facility] Work Phone: Basophil percentageon 2021 Chloride [Moles/Vol] 106 mmol/L 98-107 [facility] Work Phone: Glucose [Mass/Vol] 91 mg/dL 74-106 [facility] Work Phone: Potassium [Moles/Vol] 3.4 mmol/L 3.5-5.1 [facility] Work Phone: Sodium [Moles/Vol] 141 mmol/L 136-145 [facility] Work Phone: WBC (Bld) [#/Vol] 10.2 10*3/uL 4.4-11.0 [facility] Work Phone: Blood erythrocytes count (nu mber/volume)on 12-28-2021 RBC (Bld) [#/Vol] 4.22 10*6/uL 4.6-6.2 [facility] Work Phone: Blood hemoglobin measurement (mass/volume)on 12-28-2021 Hemoglobin (Bld) [Mass/Vol] 11.2 g/dL 13.0-16.5 [facility] Work Phone: Blood platelet mean volumeon 12-28-2021 Platelet mean volume (Bld) [Entitic vol] 10.1 fL 6.2-12.0 [facility] Work Phone: Determination of erythrocyte mean corpuscular volume (MCV)on 12-28-2021 MCV (RBC) [Entitic vol] 82.7 fL 80-94 [facility] Work Phone: Hematocrit Auto (Bld) [Volum e fraction]on 12-28-2021 Hematocrit (Bld) [Volume fraction] 34.9 % 40-54 [facility] Work Phone: Laboratory - Chemistry and C hemistry - challengeon 12-28-2021 CO2 [Moles/Vol] 30.0 mmol/L 21.0-32.0 [facility] Work Phone: Urea nitrogen/Creatinine [Mass ratio] 33.7 mg/mg 10-20 [facility] Work Phone: Laboratory - Hematology and Cell countson 12-28-2021 Erythrocyte distribution width (RBC) [Entitic vol] 49.1 fL 35.1-43.9 [facility] Work Phone: Erythrocyte distribution width (RBC) [Ratio] 16.5 % 11.6-14.6 [facility] Work Phone: MCH (RBC) [Entitic mass] 26.5 pg 27.0-32.0 [facility] Work Phone: MCHC Auto (RBC) [Mass/Vol]on 12-28-2021 MCHC (RBC) [Mass/Vol] 32.1 g/dL 32-36 [facility] Work Phone: No Panel Informationon 12-28 Estimated GFR (MDRD) Amer 174 mL/min >60 [facility] Work Phone: Comment on above: GFR Calc Estimated GFR (MDRD) Non-Af Amer 143 mL/min >60 [facility] Work Phone: Comment on above: Non- GFR Calc Platelets bldon 12-28-2021 Platelets (Bld) [#/Vol] 339 10*3/uL 150-450 [facility] Work Phone: Serum or plasma calcium oral urement (mass/volume)on 12-28-2021 Calcium [Mass/Vol] 8.6 mg/dL 8.5-10.1 [facility] Work Phone: Serum or plasma creatinine m easurement (mass/volume)on 12-28-2021 Creatinine [Mass/Vol] 0.59 mg/dL 0.70-1.30 [facility] Work Phone: Comment on above: The validity of the calculated GFR & GFRAA in patients over 70 years has not been determined. Clinical correlation is essential. Serum or plasma urea nitroge n measurement (mass/volume)on 12-28-2021 Urea nitrogen [Mass/Vol] 20 mg/dL 7-18 [facility] Work Phone: Thin prep Papanicolaou smear with manual screeningon 12-28-2021 Thin prep Papanicolaou smear with manual screening 5 5-15 [facility] Work Phone: CULTURE BLOODon 12-27-2021 Microscopic examination of blood, culture CULTURE BLOOD --> Status: F No growth at 5 days. Normal [facility] Comment on above: Performed By: #### C /BLD #### [facility] [email or web address] [address] [place] [address] Laboratory - Coagulationon 0 12-26-2021 INR Coag (Bld) [Relative time] 1.7 {INR} [facility] Work Phone: Comment on above: Critical Value > 4.0 Whole blood prothrombin time on 12-26-2021 PT Coag (Bld) [Time] 20.8 s 11.7-14.9 [facility] Work Phone: Basic Metabolic Panelon 12-05 Calcium [Mass/Vol] 8.8 mg/dL Normal 8.4-10.4 [facility] Comment on above: Performed By: #### C RP2, ESR, HEMDF, BMP3 ####[address] [place] [address] Anion gap [Moles/Vol] 6 mmol/L Normal 3-13 [facility] Comment on above: Performed By: #### C RP2, ESR, HEMDF, BMP3 ####Contact [employer]! [email or web address] [place] [address] CO2 [Moles/Vol] 27 mmol/L Normal 22- [facility] Comment on above: Performed By: #### C RP2, ESR, HEMDF, BMP3 ####[facility] [id number] [place], [place] Glucose [Mass/Vol] 100 mg/dL Normal 70-100 [facility] Comment on above: Performed By: #### C RP2, ESR, HEMDF, BMP3 ####[facility] [place], [place] Urea nitrogen [Mass/Vol] 18 mg/dL High 7-17 [facility] Comment on above: Performed By: #### C RP2, ESR, HEMDF, BMP3 ####[id number] [place], [place] Creatinine [Mass/Vol] 0.73 mg/dL Normal 0.52-1.25 [facility] Comment on above: Performed By: #### C RP2, ESR, HEMDF, BMP3 ####[id number] [place], [place] eGFR OTHER > 90.0 Normal >60 [facility] Comment on above: Result Comment: KDIG [...] C RP2, ESR, HEMDF, BMP3 ####[facility] [id number] [place], [place] GFR/1.73 sq M.predicted among blacks MDRD (S/P/Bld) [Vol rate/Area] mL/min/{1.73_m2} Normal >60 [facility] Comment on above: Performed By: #### C RP2, ESR, HEMDF, BMP3 ####[facility] [place] [address] Potassium [Moles/Vol] 3.7 mmol/L Normal 3.5-5.1 [facility] Comment on above: Performed By: #### C RP2, ESR, HEMDF, BMP3 ####[id number] [place] [address] Chloride [Moles/Vol] 106 mmol/L Normal 98-107 [facility] Comment on above: Performed By: #### C RP2, ESR, HEMDF, BMP3 ####[id number] [place] [address] Sodium [Moles/Vol] 139 mmol/L Normal 135-145 [facility] Comment on above: Performed By: #### C RP2, ESR, HEMDF, BMP3 ####[id number] [place] [address] Anion gap [Moles/Vol] 6 mmol/L 3 - 13 mmol/L [facility] Calcium [Mass/Vol] 8.8 mg/dL 8.4 - 10. 4 mg/dL [facility] Chloride [Moles/Vol] 106 mmol/L 98 - 10 7 mmol/L [facility] CO2 [Moles/Vol] 27 mmol/L 22 - 30 mmol/L [facility] Creatinine [Mass/Vol] 0.73 mg/dL 0.52 - 1.25 mg/dL [facility] eGFR mL/min 60 - P INF mL/min [facility] EGFR IF NonAfrican Mauritian mL/min 60 - PINF mL/min [facility] Comment on above: KDIGO guidelines pro [...] percentage 25-50 SEEN /hpf 0-5 [facility] Work Phone: Chloride [Moles/Vol] 106 mmol/L 98-107 [facility] Work Phone: Glucose [Mass/Vol] 93 mg/dL 74-106 [facility] Work Phone: Potassium [Moles/Vol] 3.5 mmol/L 3.5-5.1 [facility] Work Phone: Sodium [Moles/Vol] 140 mmol/L 136-145 [facility] Work Phone: WBC (Bld) [#/Vol] 9.6 10*3/uL 4.4-11.0 [facility] Work Phone: Bilirubin Test strip Ql (U)o n 12-22-2021 Bilirubin Ql (U) Negative Negative [facility] Work Phone: Blood erythrocytes count (nu mber/volume)on 12-22-2021 RBC (Bld) [#/Vol] 4.34 10*6/uL 4.6-6.2 [facility] Work Phone: [phone] Blood hemoglobin measurement (mass/volume)on 12-22-2021 Hemoglobin (Bld) [Mass/Vol] 11.5 g/dL 13.0-16.5 [facility] Work Phone: Blood platelet mean volumeon 12-22-2021 Platelet mean volume (Bld) [Entitic vol] 10.8 fL 6.2-12.0 [facility] Work Phone: C-Reactive Proteinon 022 CRP [Mass/Vol] 27.2 mg/L High 0.0-9.9 [facility] [email or web address] Comment on above: Result Comment: . Performed By: #### C RP2, ESR, HEMDF, BMP3 ####[id number] [place] [address] CRP [Mass/Vol] 27.2 mg/L High 0 - 9.9 mg/L [facility] Comment on above: . CBC with [...] 11.0 g/dL Low 13 - 18 g/dL [facility] Interpretation and review of laboratory results [...] - 10.7 10*3/uL [facility] Test Performed by [id number] [facility] COVID-19, Flu A/B, and RSV C [facility] 12-22-2021 Influenza A by PCR Not detected [facility] A Influenza B by PCR Not detected [facility] A RSV PCR Not Detected. Expected Result: Not Detected _ Method: Real-time, RT-PCR This assay was developed by [employer] and distributed under an Emergency Use Authorization (EUA) granted by the FDA for the qualitative detection of nucleic acids from SARS-CoV-2, Influenza A, Influenza B, and Respiratory Syncytial Virus. Provider and patient fact sheets can be found at https://www.fda.gov/media /913587/download and https://www.fda.gov/media /291219/download. [facility] SARS-CoV-2 (COVID-19) RNA MEGAN+probe Ql (Unsp spec) Not detected [facility] Test Performed by [address] [place] [id number] [facility] CR Foot Complete 3+ Views [place] 12-22-2021 CR Foot Complete 3+ Views Left Patient Name: ANDREW SIFUENTES Diagnostic Radiology ACCESSION EXAM DATE/TIME PROCEDURE ORDERING PROVIDER [id number] 12/22/2021 00:09 EDT CR Foot Complete 3+ SANDY HIDALGO, HENRY Godoy Views Left CPT code 83335 Reason For Exam (CR Foot Complete 3+ [...] Transcribed Date and Time: 12/22/2021 0:21 Normal [facility] Calcium oxalate crystals det ection in urine sediment by light microscopyon 12-22-2021 Calcium oxalate crystals LM Ql (Urine sed) 1+ /hpf [facility] Work Phone: Determination of erythrocyte mean corpuscular volume (MCV)on 12-22-2021 MCV (RBC) [Entitic vol] 84.3 fL 80-94 [facility] Work Phone: ED Provider Noteon [...] leg for a while. According to EMS assisted staff completed x-ray of the lower extremity and there was concern for osteomyelitis hence transferring patient to the hospital. Patient states this time the wounds on the left lower extremity for extended period of time. He denies fevers or chills. Patient states assisted staff have been taking care of the wound for him. Focused exam: Blood pressure 108/67, pulse 77, temperature 97.9 ?F (36.6 ?C), temperature source Oral, resp. rate 16, height 5' 9" (1.753 m), weight 79.4 kg (175 lb), SpO2 96 %. Bvy-ejx-eeetdargy in no acute distress. Alert and oriented [...] [employer] Sharon Olivia MD 12/22/21 0306 [facility] ED Provider Note [facility] EMERGENCY DEPT EMERGENCY DEPARTMENT ENCOUNTER Pt Name: Andrew Sifuentes Birthdate 1950 Date of evaluation: 12/21/2021 Provider: SANIA Lou CHIEF COMPLAINT Chief Complaint Patient presents with Osteomyelitis Patient from [facility], facility did xrays on left [...] Hemorrhoids Hydrocephalus, adult (HCC) Kidney stone Neuropathy MOTORS AND CONTROLS TESTER (ventriculoperitoneal) shunt status SURGICAL HISTORY Past Surgical [...] Response: Confused Best Motor Response: Obeys commands [place] Coma Scale Score: 14 Patient symptoms are [...] soft. Tenderness: (more content not included)... Normal [facility] Hematocrit Auto (Bld) [Volum e fraction]on 12-22-2021 Hematocrit (Bld) [Volume fraction] 36.6 % 40-54 [facility] Work Phone: Hemogram w/ Autodiffon 12-22 Abs Baso Cnt 0.1 10*3/uL Normal 0.0-0.2 [facility] Comment on above: Performed By: #### C RP2, ESR, HEMDF, BMP3 ####[id number] [place], [place] Abs Neutrophile Cnt 5.9 10*3/uL Normal 1.8-7.0 [facility] Comment on above: Performed By: #### C RP2, ESR, HEMDF, BMP3 ####[id number] [place], [place] Basophils/100 WBC (Bld) 0.7 % Normal 0.0-2.0 [facility] Comment on above: Performed By: #### C RP2, ESR, HEMDF, BMP3 ####[address] Eosinophils (Bld) [#/Vol] 0.2 10*3/uL Normal 0.0-0.5 [facility] Comment on above: Performed By: #### C RP2, ESR, HEMDF, BMP3 ####[facility] [id number] [place], [place] Eosinophils/100 WBC (Bld) 2.3 % Normal 1.0-6.0 [facility] Comment on above: Performed By: #### C RP2, ESR, HEMDF, BMP3 ####[facility] [id number] [place], [place] Erythrocyte distribution width (RBC) [Ratio] 17.5 % High 11.5-14.5 [facility] Comment on above: Performed By: #### C RP2, ESR, HEMDF, BMP3 ####[address] Granulocytes/100 WBC (Bld) 57.8 % Normal 40.0-80.0 [facility] Comment on above: Performed By: #### C RP2, ESR, HEMDF, BMP3 ####[id number] [place], [place] Hematocrit (Bld) [Volume fraction] 33.3 % Low 40.0-52.0 [facility] Comment on above: Performed By: #### C RP2, ESR, HEMDF, BMP3 ####[address] Hemoglobin (Bld) [Mass/Vol] 11.0 g/dL Low 13.0-18.0 [facility] Comment on above: Performed By: #### C RP2, ESR, HEMDF, BMP3 ####[address] Lymphocytes (Bld) [#/Vol] 3.3 10*3/uL Normal 1.0-4.3 [facility] Comment on above: Performed By: #### C RP2, ESR, HEMDF, BMP3 ####[id number] [place], [place] Lymphocytes/100 WBC (Bld) 33.0 % Normal 20.0-40.0 [facility] Comment on above: Performed By: #### C RP2, ESR, HEMDF, BMP3 ####[address] MCH (RBC) [Entitic mass] 26.5 pg Normal 26.0-34.0 [facility] Comment on above: Performed By: #### C RP2, ESR, HEMDF, BMP3 ####[address] MCHC 33.1 % Normal 32.0-36.0 [facility] Comment on above: Performed By: #### C RP2, ESR, HEMDF, BMP3 ####[address] MCV (RBC) [Entitic vol] 80.2 fL Normal 80.0-98.0 [facility] Comment on above: Performed By: #### C RP2, ESR, HEMDF, BMP3 ####[id number] [place], [place] Monocytes (Bld) [#/Vol] 0.6 10*3/uL Normal 0.0-0.8 [facility] Comment on above: Performed By: #### C RP2, ESR, HEMDF, BMP3 ####[address] Monocytes/100 WBC (Bld) 6.2 % Normal 2.0-10.0 [facility] Comment on above: Performed By: #### C RP2, ESR, HEMDF, BMP3 ####[address] Platelet mean volume (Bld) [Entitic vol] 8.0 fL Normal 7.4-12.4 [facility] Comment on above: Result Comment: MPV is a calculated measurement using platelet volume ratio. Performed By: #### C RP2, ESR, HEMDF, BMP3 ####[id number] [place], [place] Platelets (Bld) [#/Vol] 368 10*3/uL Normal 140-440 [facility] Comment on above: Performed By: #### C RP2, ESR, HEMDF, BMP3 ####[address] RBC (Bld) [#/Vol] 4.15 10*6/uL Low 4.40-5.90 [facility] Comment on above: Performed By: #### C RP2, ESR, HEMDF, BMP3 ####[address] WBC (Bld) [#/Vol] 10.1 10*3/uL Normal 3.6-10.7 [facility] Comment on above: Performed By: #### C RP2, ESR, HEMDF, BMP3 ####[id number] [place] [address] Ketones Test strip Ql (U)on 12-22-2021 Ketones Ql (U) Negative Negative [facility] Work Phone: Laboratory - Chemistry and C hemistry - challengeon 12-22-2021 CO2 [Moles/Vol] 27.0 mmol/L 21.0-32.0 [facility] Work Phone: Urea nitrogen/Creatinine [Mass ratio] 22.5 mg/mg 10-20 [facility] Work Phone: Laboratory - Hematology and Cell countson 12-22-2021 Erythrocyte distribution width (RBC) [Entitic vol] 49.1 fL 35.1-43.9 [facility] Work Phone: Erythrocyte distribution width (RBC) [Ratio] 16.1 % 11.6-14.6 [facility] Work Phone: MCH (RBC) [Entitic mass] 26.5 pg 27.0-32.0 [facility] Work Phone: MCHC Auto (RBC) [Mass/Vol]on 12-22-2021 MCHC (RBC) [Mass/Vol] 31.4 g/dL 32-36 [facility] Work Phone: Mucus LM Ql (Urine sed)on Mucus Ql (Urine sed) 0 SEEN /hpf [facility] Work Phone: Nitrite Test strip Ql (U)on 12-22-2021 Nitrite Ql (U) Positive Negative [facility] Work Phone: No Panel Informationon 12-22 Estimated GFR (MDRD) Amer 152 mL/min >60 [facility] Work Phone: Comment on above: GFR Calc Estimated GFR (MDRD) Non-Af Amer 125 mL/min >60 [facility] Work Phone: Comment on above: Non- GFR Calc Interpretation and review of laboratory results Abnormal [facility] Test Performed by [facility], [address] [place] [address] [facility] Platelets bldon 12-22-2021 Platelets (Bld) [#/Vol] 317 10*3/uL 150-450 [facility] Work Phone: Protein Test strip Ql (U)on 12-22-2021 Protein Ql (U) 30 mg/dl Negative [facility] Work Phone: SARS-CoV-2, Flu A/B and RSVo n 12-22-2021 SARS-CoV-2 (COVID-19) RNA MEGAN+probe Ql (Unsp spec) SARS-CoV-2 --> Status: F Not Detected. Flu A PCR --> Status: F Not Detected. Flu B PCR --> Status: F Not Detected. RSV PCR --> Status: F Not Detected. Expected Result: Not Detected _ Method: Real-time, RT-PCR This assay was developed by [employer] and distributed under an Emergency Use Authorization (EUA) granted by the FDA for the qualitative detection of nucleic acids from SARS-CoV-2, Influenza A, Influenza B, and Respiratory Syncytial Virus. Provider and patient fact sheets can be found at https://www.fda.gov/media /744908/download and https://www.fda.gov/media /767533/download. Expected Result: Not Detected _ Method: Real-time, RT-PCR This assay was developed by [employer] and distributed under an Emergency Use Authorization (EUA) granted by the FDA for the qualitative detection of nucleic acids from SARS-CoV-2, Influenza A, Influenza B, and Respiratory Syncytial Virus. Provider and patient fact sheets can be found at https://www.fda.gov/media /113396/download and https://www.fda.gov/media /822880/download. Normal [facility] Comment on above: Performed By: #### C VFLR ####[facility] [place] [place] [address], [phone] Sed Rateon 12-22-2021 Sed Rate 48 mm/h High 0-10 [facility] Comment on above: Performed By: #### C RP2, ESR, HEMDF, BMP3 ####[facility] [address] [place] [address] Sedimentation Rateon 022 Interpretation and review of laboratory results Abnormal [facility] Sed Rate 48 mm/h High 0 - 10 mm/h [facility] Test Performed by [facility], [address] [place] [address] [facility] Serum or plasma calcium oral urement (mass/volume)on 12-22-2021 Calcium [Mass/Vol] 8.6 mg/dL 8.5-10.1 [facility] Work Phone: Serum or plasma creatinine m easurement (mass/volume)on 12-22-2021 Creatinine [Mass/Vol] 0.67 mg/dL 0.70-1.30 [facility] Work Phone: Comment on above: The validity of the calculated GFR & GFRAA in patients over 70 years has not been determined. Clinical correlation is essential. Serum or plasma urea nitroge n measurement (mass/volume)on 12-22-2021 Urea nitrogen [Mass/Vol] 15 mg/dL - [facility] Work Phone: Squamous epithelial cells de tection in urine sediment by light microscopyon 12-22-2021 Epithelial cells.squamous LM Ql (Urine sed) 0-5 SEEN /hpf 0-5 [facility] Work Phone: Thin prep Papanicolaou smear with manual screeningon 12-22-2021 Thin prep Papanicolaou smear with manual screening 7 5-15 [facility] Work Phone: Urine blood detectionon 12-05 RBC Ql (U) 150 /ul Negative [facility] Work Phone: RBC Ql (U) 10-25 SEEN /hpf 0-5 [facility] Work Phone: Urine clarityon 12-22-2021 Clarity (U) Sl. Cloudy Clear [facility] Work Phone: Urine color determinationon 12-22-2021 Color (U) Yellow Yellow [facility] Work Phone: Urine glucose detectionon Glucose Ql (U) Normal mg/dl Normal [facility] Work Phone: Urine leukocyte esterase det ection by dipstickon 12-22-2021 Leukocyte esterase Test strip Ql (U) 500 /ul Negative [facility] Work Phone: Urine pHon 12-22-2021 pH (U) 6.0 [pH] 5.0 - 8.0 [facility] Work Phone: Urine sediment bacteria coun t by microscopy (number/high power field)on 12-22-2021 Bacteria LM.HPF (Urine sed) [#/Area] 2 /[HPF] None Seen [facility] Work Phone: Urine specific gravity measu rementon 12-22-2021 Specific gravity (U) [Rel density] 1.020 1.002-1.030 [facility] Work Phone: Urobilinogen Auto test strip Ql (U)on 12-22-2021 Urobilinogen Ql (U) Normal mg/dl Normal [facility] Work Phone: XR FOOT LEFT (MIN 3 VIEWS)on 12-22-2021 Patient Name: ANDREW SIFUENTES Diagnostic Radiology ACCESSION EXAM DATE/TIME PROCEDURE ORDERING PROVIDER [id number] 12/22/2021 00:09 EDT CR Foot Complete 3+ SANDY HIDALGO JOHN M Views Left CPT code 87591 Reason For Exam (CR Foot Complete 3+ [...] JEFFREY Transcribed Date and Time: 12/22/2021 0:21 [facility] Albert Solano MD - 12/22/2021 Patient Name: ANDREW SIFUENTES Diagnostic Radiology ACCESSION EXAM DATE/TIME PROCEDURE ORDERING PROVIDER [id number] 12/22/2021 00:09 EDT CR Foot Complete 3+ SANDY HIDALGO JOHN M Views Left CPT code 31142 Reason For Exam (CR Foot Complete 3+ [...] 2021 Chloride [Moles/Vol] 103 mmol/L 98-[address] [facility] Work Phone: Glucose [Mass/Vol] 92 mg/dL 74-106 [facility] Work Phone: Potassium [Moles/Vol] 3.5 mmol/L 3.5-5.1 [facility] Work Phone: Sodium [Moles/Vol] 138 mmol/L 136-145 [facility] Work Phone: WBC (Bld) [#/Vol] 11.2 10*3/uL 4.4-11.0 [facility] Work Phone: Blood erythrocytes count (nu mber/volume)on 12-19-2021 RBC (Bld) [#/Vol] 4.50 10*6/uL 4.6-6.2 [facility] Work Phone: [phone] Blood hemoglobin measurement (mass/volume)on 12-19-2021 Hemoglobin (Bld) [Mass/Vol] 12.2 g/dL 13.0-16.5 [facility] Work Phone: Blood platelet mean volumeon 12-19-2021 Platelet mean volume (Bld) [Entitic vol] 11.3 fL 6.2-12.0 [facility] Work Phone: Determination of erythrocyte mean corpuscular volume (MCV)on 12-19-2021 MCV (RBC) [Entitic vol] 85.6 fL 80-94 [facility] Work Phone: Hematocrit Auto (Bld) [Volum e fraction]on 12-19-2021 Hematocrit (Bld) [Volume fraction] 38.5 % 40-54 [facility] Work Phone: Laboratory - Chemistry and C hemistry - challengeon 12-19-2021 CO2 [Moles/Vol] 30.0 mmol/L 21.0-32.0 [facility] Work Phone: Urea nitrogen/Creatinine [Mass ratio] 27.1 mg/mg 10-20 [facility] Work Phone: Laboratory - Hematology and Cell countson 12-19-2021 Erythrocyte distribution width (RBC) [Entitic vol] 50.5 fL 35.1-43.9 [facility] Work Phone: Erythrocyte distribution width (RBC) [Ratio] 16.0 % 11.6-14.6 [facility] Work Phone: MCH (RBC) [Entitic mass] 27.1 pg 27.0-32.0 [facility] Work Phone: MCHC Auto (RBC) [Mass/Vol]on 12-19-2021 MCHC (RBC) [Mass/Vol] 31.7 g/dL 32-36 [facility] Work Phone: No Panel Informationon 12-19 Estimated GFR (MDRD) Amer 153 mL/min >60 [facility] Work Phone: Comment on above: GFR Calc Estimated GFR (MDRD) Non-Af Amer 126 mL/min >60 [facility] Work Phone: Comment on above: Non- GFR Calc Platelets bldon 12-19-2021 Platelets (Bld) [#/Vol] 363 10*3/uL 150-450 [facility] Work Phone: Serum or plasma calcium oral urement (mass/volume)on 12-19-2021 Calcium [Mass/Vol] 9.5 mg/dL 8.5-10.1 [facility] Work Phone: Serum or plasma creatinine m easurement (mass/volume)on 12-19-2021 Creatinine [Mass/Vol] 0.66 mg/dL 0.70-1.30 [facility] Work Phone: Comment on above: The validity of the calculated GFR & GFRAA in patients over 70 years has not been determined. Clinical correlation is essential. Serum or plasma urea nitroge n measurement (mass/volume)on 12-19-2021 Urea nitrogen [Mass/Vol] 18 mg/dL 7-18 [facility] Work Phone: Thin prep Papanicolaou smear with manual screeningon 12-19-2021 Thin prep Papanicolaou smear with manual screening 09-18 [facility] Work Phone: Laboratory - Coagulationon 0 12-12-2021 INR Coag (Bld) [Relative time] 2.0 {INR} [facility] Work Phone: Comment on above: Critical Value > 4.0 Whole blood prothrombin time on 12-12-2021 PT Coag (Bld) [Time] 23.9 s 11.7-14.9 [facility] Work Phone: ANES POSTPROC EVALon 022 ANES POSTPROC EVAL Normal [facility] Laboratory - Coagulationon 0 12-08-2021 INR Coag (Bld) [Relative time] 1.8 {INR} [facility] Work Phone: Comment on above: Critical Value > 4.0 Whole blood prothrombin time on 12-08-2021 PT Coag (Bld) [Time] 21.0 s 11.7-14.9 [facility] Work Phone: Absolute lymphocyte counton 12-05-2021 Lymphocytes Auto (Unsp spec) [#/Vol] 2.97 10*3/uL 0.83-4.51 [facility] Work Phone: Basophil percentageon 2021 Basophils/100 WBC (Bld) 0.6 % 0-1 [facility] Work Phone: Chloride [Moles/Vol] 106 mmol/L 98-107 [facility] Work Phone: Eosinophils/100 WBC (Bld) 2.3 % 0-5 [facility] Work Phone: Glucose [Mass/Vol] 107 mg/dL 74-106 [facility] Work Phone: Comment on above: Fasting Glucose resu lt from 100 to 125 mg/dL suggests IMPAIRED HOMEOSTASIS per A.D.A. criteria. Neutrophils (Bld) [#/Vol] 5.6 10*3/uL 2.0-7.7 [facility] Work Phone: Neutrophils/100 WBC (Bld) 60.2 % 47-70 [facility] Work Phone: [phone] Potassium [Moles/Vol] 3.4 mmol/L 3.5-5.1 [facility] Work Phone: [phone] Sodium [Moles/Vol] 139 mmol/L 136-145 [facility] Work Phone: WBC (Bld) [#/Vol] 9.3 10*3/uL 4.4-11.0 [facility] Work Phone: Blood erythrocytes count (nu mber/volume)on 12-05-2021 RBC (Bld) [#/Vol] 4.49 10*6/uL 4.6-6.2 [facility] Work Phone: Blood hemoglobin measurement (mass/volume)on 12-05-2021 Hemoglobin (Bld) [Mass/Vol] 12.1 g/dL 13.0-16.5 [facility] Work Phone: Blood lymphocytes/100 leukoc yteson 12-05-2021 Lymphocytes/100 WBC (Bld) 32.0 % 19-41 [facility] Work Phone: Blood monocytes/100 leukocyt eson 12-05-2021 Monocytes/100 WBC (Bld) 4.7 % 0-10 [facility] Work Phone: Blood platelet mean volumeon 12-05-2021 Platelet mean volume (Bld) [Entitic vol] 10.8 fL 6.2-12.0 [facility] Work Phone: Determination of erythrocyte mean corpuscular volume (MCV)on 12-05-2021 MCV (RBC) [Entitic vol] 84.9 fL 80-94 [facility] Work Phone: Hematocrit Auto (Bld) [Volum e fraction]on 12-05-2021 Hematocrit (Bld) [Volume fraction] 38.1 % 40-54 [facility] Work Phone: INR in Blood by Coagulation assayon 12-05-2021 INR Coag (Bld) [Relative time] 1.8 {INR} [facility] Work Phone: Laboratory - Chemistry and C hemistry - challengeon 12-05-2021 CO2 [Moles/Vol] 29.0 mmol/L 21.0-32.0 [facility] Work Phone: Urea nitrogen/Creatinine [Mass ratio] 25.4 mg/mg 10-20 [facility] Work Phone: Laboratory - Coagulationon 0 12-05-2021 PT Coag (PPP) [Time] 20.5 s 11.7-14.9 [facility] Work Phone: Laboratory - Hematology and Cell countson 12-05-2021 Erythrocyte distribution width (RBC) [Entitic vol] 48.5 fL 35.1-43.9 [facility] Work Phone: Erythrocyte distribution width (RBC) [Ratio] 15.7 % 11.6-14.6 [facility] Work Phone: Immature granulocytes/100 WBC (Bld) 0.200 % 0.0-0.9 [facility] Work Phone: Comment on above: IG% - Immature Granu locytes (promyelocytes, myelocytes and metamyelocytes) > 1% indicates that a LEFT SHIFT is Present. MCH (RBC) [Entitic mass] 26.9 pg 27.0-32.0 [facility] Work Phone: Nucleated RBC/100 WBC (Bld) [Ratio] 0 % 0-5 [facility] Work Phone: MCHC Auto (RBC) [Mass/Vol]on 12-05-2021 MCHC (RBC) [Mass/Vol] 31.8 g/dL 32-36 [facility] Work [facility]: No Panel Informationon 12-05 Estimated GFR (MDRD) Amer 133 mL/min >60 [facility] Work Phone: Comment on above: GFR Calc Estimated GFR (MDRD) Non-Af Amer 110 mL/min >60 [facility] Work Phone: Comment on above: Non- GFR Calc Platelets bldon 12-05-2021 Platelets (Bld) [#/Vol] 363 10*3/uL 150-450 [facility] Work Phone: Serum or plasma calcium oral urement (mass/volume)on 12-05-2021 Calcium [Mass/Vol] 9.4 mg/dL 8.5-10.1 [facility] Work Phone: Serum or plasma creatinine m easurement (mass/volume)on 12-05-2021 Creatinine [Mass/Vol] 0.75 mg/dL 0.70-1.30 [facility] Work Phone: Comment on above: The validity of the calculated GFR & GFRAA in patients over 70 years has not been determined. Clinical correlation is essential. Serum or plasma urea nitroge n measurement (mass/volume)on 12-05-2021 Urea nitrogen [Mass/Vol] 19 mg/dL 7-18 [facility] Work Phone: Thin prep Papanicolaou smear with manual screeningon 12-05-2021 Thin prep Papanicolaou smear with manual screening 4 5-15 [facility] Work Phone: Basophil percentageon 2021 Basophil percentage 0 SEEN /hpf 0-5 [facility] Work Phone: Chloride [Moles/Vol] 104 mmol/L 98-107 [facility] Work Phone: Glucose [Mass/Vol] 90 mg/dL 74-106 [facility] Work Phone: Potassium [Moles/Vol] 3.7 mmol/L 3.5-5.1 [facility] Work Phone: Comment on above: Slight Hemolysis, Re sult may be falsely increased. Sodium [Moles/Vol] 138 mmol/L 136-145 [facility] Work Phone: WBC (Bld) [#/Vol] 10.7 10*3/uL 4.4-11.0 [facility] Work Phone: Bilirubin Test strip Ql (U)o n 12-01-2021 Bilirubin Ql (U) Negative Negative [facility] Work Phone: Blood erythrocytes count (nu mber/volume)on 12-01-2021 RBC (Bld) [#/Vol] 4.33 10*6/uL 4.6-6.2 [facility] Work Phone: Blood hemoglobin measurement (mass/volume)on 12-01-2021 Hemoglobin (Bld) [Mass/Vol] 11.6 g/dL 13.0-16.5 [facility] Work Phone: Blood platelet mean volumeon 12-01-2021 Platelet mean volume (Bld) [Entitic vol] 11.2 fL 6.2-12.0 [facility] Work Phone: Determination of erythrocyte mean corpuscular volume (MCV)on 12-01-2021 MCV (RBC) [Entitic vol] 85.2 fL 80-94 [facility] Work Phone: Hematocrit Auto (Bld) [Volum e fraction]on 12-01-2021 Hematocrit (Bld) [Volume fraction] 36.9 % 40-54 [facility] Work Phone: Ketones Test strip Ql (U)on 12-01-2021 Ketones Ql (U) Negative Negative [facility] Work Phone: Laboratory - Chemistry and C hemistry - challengeon 12-01-2021 CO2 [Moles/Vol] 27.0 mmol/L 21.0-32.0 [facility] Work Phone: Urea nitrogen/Creatinine [Mass ratio] 24.0 mg/mg 10-20 [facility] Work Phone: Laboratory - Coagulationon 0 12-01-2021 INR Coag (Bld) [Relative time] 1.6 {INR} [facility] Work Phone: Comment on above: Critical Value > 4.0 Laboratory - Hematology and Cell countson 12-01-2021 Erythrocyte distribution width (RBC) [Entitic vol] 47.9 fL 35.1-43.9 [facility] Work Phone: Erythrocyte distribution width (RBC) [Ratio] 15.5 % 11.6-14.6 [facility] Work Phone: MCH (RBC) [Entitic mass] 26.8 pg 27.0-32.0 [facility] Work Phone: MCHC Auto (RBC) [Mass/Vol]on 12-01-2021 MCHC (RBC) [Mass/Vol] 31.4 g/dL 32-36 [facility] Work Phone: Mucus LM Ql (Urine sed)on Mucus Ql (Urine sed) 0 SEEN /hpf [facility] Work Phone: Nitrite Test strip Ql (U)on 12-01-2021 Nitrite Ql (U) Negative Negative [facility] Work Phone: No Panel Informationon 12-01 Estimated GFR (MDRD) Amer 133 mL/min >60 [facility] Work Phone: Comment on above: GFR Calc Estimated GFR (MDRD) Non-Af Amer 110 mL/min >60 [facility] Work Phone: Comment on above: Non- GFR Calc Platelets bldon 12-01-2021 Platelets (Bld) [#/Vol] 336 10*3/uL 150-450 [facility] Work Phone: Protein Test strip Ql (U)on 12-01-2021 Protein Ql (U) 30 mg/dl Negative [facility] Work Phone: Serum or plasma calcium oral urement (mass/volume)on 12-01-2021 Calcium [Mass/Vol] 9.4 mg/dL 8.5-10.1 [facility] Work Phone: Serum or plasma creatinine m easurement (mass/volume)on 12-01-2021 Creatinine [Mass/Vol] 0.75 mg/dL 0.70-1.30 [facility] Work Phone: Comment on above: The validity of the calculated GFR & GFRAA in patients over 70 years has not been determined. Clinical correlation is essential. Serum or plasma urea nitroge n measurement (mass/volume)on 12-01-2021 Urea nitrogen [Mass/Vol] 18 mg/dL 7-18 [facility] Work Phone: Squamous epithelial cells de tection in urine sediment by light microscopyon 12-01-2021 Epithelial cells.squamous LM Ql (Urine sed) 0-5 SEEN /hpf 0-5 [facility] Work Phone: Thin prep Papanicolaou smear with manual screeningon 12-01-2021 Thin prep Papanicolaou smear with manual screening 7 5-15 [facility] Work Phone: Urine blood detectionon 11-05 RBC Ql (U) Negative Negative [facility] Work Phone: RBC Ql (U) 0 SEEN /hpf 0-5 [facility] Work Phone: Urine clarityon 12-01-2021 Clarity (U) Clear Clear [facility] Work Phone: Urine color determinationon 12-01-2021 Color (U) Yellow Yellow [facility] Work Phone: Urine glucose detectionon Glucose Ql (U) 50 mg/dl Normal [facility] Work Phone: Urine leukocyte esterase det ection by dipstickon 12-01-2021 Leukocyte esterase Test strip Ql (U) Negative Negative [facility] Work Phone: Urine pHon 12-01-2021 pH (U) 6.0 [pH] 5.0 - 8.0 [facility] Work Phone: Urine sediment bacteria coun t by microscopy (number/high power field)on 12-01-2021 Bacteria LM.HPF (Urine sed) [#/Area] 0 /[HPF] None Seen [facility] Work Phone: Urine sediment yeast count b y microscopy (number/high powered field)on 12-01-2021 Yeast LM.HPF (Urine sed) [#/Area] 2 /[HPF] None Seen [facility] Work Phone: Urine specific gravity measu rementon 12-01-2021 Specific gravity (U) [Rel density] 1.010 1.002-1.030 [facility] Work Phone: Urobilinogen Auto test strip Ql (U)on 12-01-2021 Urobilinogen Ql (U) Normal mg/dl Normal [facility] Work Phone: Whole blood prothrombin time on 12-01-2021 PT Coag (Bld) [Time] 19.8 s 11.7-14.9 [facility] Work Phone: Laboratory - Coagulationon 0 11-28-2021 INR Coag (Bld) [Relative time] 1.6 {INR} [facility] Work Phone: Comment on above: Critical Value > 4.0 Whole blood prothrombin time on 11-28-2021 PT Coag (Bld) [Time] 18.8 s 11.7-14.9 [facility] Work Phone: INR in Blood by Coagulation assayon 11-23-2021 INR Coag (Bld) [Relative time] 2.7 {INR} [facility] Work Phone: Laboratory - Coagulationon 0 11-23-2021 PT Coag (PPP) [Time] 28.0 s 11.7-14.9 [facility] Work Phone: Laboratory - Coagulationon 0 11-22-2021 INR Coag (Bld) [Relative time] 3.8 {INR} [facility] Work Phone: Comment on above: Critical Value > 4.0 Whole blood prothrombin time on 11-22-2021 PT Coag (Bld) [Time] 42.8 s 11.7-14.9 [facility] Work Phone: INR in Blood by Coagulation assayon 11-21-2021 INR Coag (Bld) [Relative time] 3.9 {INR} [facility] Work Phone: Laboratory - Coagulationon 0 11-21-2021 PT Coag (PPP) [Time] 37.7 s 11.7-14.9 [facility] Work Phone: Whole blood prothrombin time on 11-21-2021 PT Coag (Bld) [Time] 45.5 s 11.7-14.9 [facility] Work Phone: INR in Blood by Coagulation assayon 11-14-2021 INR Coag (Bld) [Relative time] 3.1 {INR} [facility] Work Phone: Laboratory - Coagulationon 0 11-14-2021 PT Coag (PPP) [Time] 31.4 s 11.7-14.9 [facility] Work Phone: Laboratory - Coagulationon 0 11-08-2021 INR Coag (Bld) [Relative time] 2.5 {INR} [facility] Work Phone: Comment on above: Critical Value > 4.0 Whole blood prothrombin time on 11-08-2021 PT Coag (Bld) [Time] 29.0 s 11.7-14.9 [facility] Work Phone: Basophil percentageon 2021 Chloride [Moles/Vol] 106 mmol/L 98-107 [facility] Work Phone: Glucose [Mass/Vol] 100 mg/dL 74-106 [facility] Work Phone: Comment on above: Fasting Glucose resu lt from 100 to 125 mg/dL suggests IMPAIRED HOMEOSTASIS per A.D.A. criteria. Potassium [Moles/Vol] 3.7 mmol/L 3.5-5.1 [facility] Work Phone: Sodium [Moles/Vol] 140 mmol/L 136-145 [facility] Work Phone: WBC (Bld) [#/Vol] 8.8 10*3/uL 4.4-11.0 [facility] Work Phone: Blood erythrocytes count (nu mber/volume)on 11-04-2021 RBC (Bld) [#/Vol] 4.05 10*6/uL 4.6-6.2 [facility] Work Phone: Blood hemoglobin measurement (mass/volume)on 11-04-2021 Hemoglobin (Bld) [Mass/Vol] 11.1 g/dL 13.0-16.5 [facility] Work Phone: Blood platelet mean volumeon 11-04-2021 Platelet mean volume (Bld) [Entitic vol] 10.8 fL 6.2-12.0 [facility] Work Phone: Determination of erythrocyte mean corpuscular volume (MCV)on 11-04-2021 MCV (RBC) [Entitic vol] 86.9 fL 80-94 [facility] Work Phone: Hematocrit Auto (Bld) [Volum e fraction]on 11-04-2021 Hematocrit (Bld) [Volume fraction] 35.2 % 40-54 [facility] Work Phone: INR in Blood by Coagulation assayon 11-04-2021 INR Coag (Bld) [Relative time] 1.8 {INR} [facility] Work Phone: Laboratory - Chemistry and C hemistry - challengeon 11-04-2021 CO2 [Moles/Vol] 26.0 mmol/L 21.0-32.0 [facility] Work Phone: Urea nitrogen/Creatinine [Mass ratio] 18.3 mg/mg 10-20 [facility] Work Phone: Laboratory - Coagulationon 0 11-04-2021 PT Coag (PPP) [Time] 20.4 s 11.7-14.9 [facility] Work Phone: Laboratory - Hematology and Cell countson 11-04-2021 Erythrocyte distribution width (RBC) [Entitic vol] 48.1 fL 35.1-43.9 [facility] Work Phone: Erythrocyte distribution width (RBC) [Ratio] 15.0 % 11.6-14.6 [facility] Work Phone: MCH (RBC) [Entitic mass] 27.4 pg 27.0-32.0 [facility] Work Phone: MCHC Auto (RBC) [Mass/Vol]on 11-04-2021 MCHC (RBC) [Mass/Vol] 31.5 g/dL 32-36 [facility] Work Phone: No Panel Informationon 11-04 D-Dimer Quantitative (PE/DVT) 0.56 FEU/ug/m 0.27-0.49 [facility] Work Phone: Comment on above: D-Dimer ELEVATED (>0 .49): Additional studies and clinicalassessments are indicated to conclude diagnosis of:Deep Vein Thrombosis (DVT) or Pulmonary Embolism (PE) Estimated GFR (MDRD) Amer 155 mL/min >60 [facility] Work Phone: Comment on above: GFR Calc Estimated GFR (MDRD) Non-Af Amer 128 mL/min >60 [facility] Work Phone: Comment on above: Non- GFR Calc Troponin I High Sensitivity 11 pg/mL 3.0-78.0 [facility] Work Phone: Comment on above: Please Note: New [place] t Units and Gender Specific Reference Ranges. For more information see Policy Stat Procedure [place] High Sensitivity Troponin (TNIH) and attachments. Platelets bldon 11-04-2021 Platelets (Bld) [#/Vol] 364 10*3/uL 150-450 [facility] Work Phone: Serum or plasma C reactive p rotein measurement (mass/volume)on 11-04-2021 CRP [Mass/Vol] 31.90 mg/L 0.0-3.0 [facility] Work Phone: Comment on above: C-Reactive Protein ( CRP) provides useful information for thediagnosis, therapy and monitoring of inflammatory processesand associated diseases. For the evaluation of Relative Riskfor Cardiovascular Disease, a High Sensitivity CRP (HSCRP)should be ordered. Serum or plasma calcium oral urement (mass/volume)on 11-04-2021 Calcium [Mass/Vol] 9.1 mg/dL 8.5-10.1 [facility] Work Phone: Serum or plasma creatinine m easurement (mass/volume)on 11-04-2021 Creatinine [Mass/Vol] 0.66 mg/dL 0.70-1.30 [facility] Work Phone: Comment on above: The validity of the calculated GFR & GFRAA in patients over 70 years has not been determined. Clinical correlation is essential. Serum or plasma urea nitroge n measurement (mass/volume)on 11-04-2021 Urea nitrogen [Mass/Vol] 12 mg/dL 7-18 [facility] Work Phone: Thin prep Papanicolaou smear with manual screeningon 11-04-2021 Thin prep Papanicolaou smear with manual screening 8 5-15 [facility] Work Phone: Complete Urinalysison 2021 Appearance (U) Clear Normal Clear [facility] Comment on above: Result Comment: . Performed By: #### C UA2 ####[place] [address] [place], [place] Bacteria Moderate Abnormal Negative [facility] Comment on above: Result Comment: . Performed By: #### C UA2 ####[place] [address] [place], [place] Bilirubin,Urine Negative Normal Negative [facility] Comment on above: Result Comment: . Performed By: #### C UA2 ####[employer] [address] [address] [place], [place] Cast, Hyaline Negative Normal Negative [facility] Comment on above: Result Comment: . Performed By: #### C UA2 ####[place] [address] [place], [place] Color (U) Yellow Normal Lt. Yellow [facility] Comment on above: Result Comment: . Performed By: #### C UA2 ####[address] [place], [place] Glucose Ql (U) Normal Normal Normal (<70) [facility] Comment on above: Result Comment: . Performed By: #### C UA2 ####[address] [place], [place] Ketone,Urine Negative Normal Negative [facility] Comment on above: Result Comment: . Performed By: #### C UA2 ####[address] [place], [place] Leukocytes,Urine Negative Normal Negative [facility] Comment on above: Result Comment: . Performed By: #### C UA2 ####[address] Mucous Threads Few Normal Negative [facility] Comment on above: Result Comment: . Performed By: #### C UA2 ####[address] Nitrites,Urine Negative Normal Negative [facility] Comment on above: Result Comment: . Performed By: #### C UA2 ####[address] Occult Blood,Urine 0.1 mg/dL Abnormal Negative [facility] Comment on above: Result Comment: . Performed By: #### C UA2 ####[address] pH,Urine 5.5 Normal 5.0-8.0 [facility] Comment on above: Result Comment: . Performed By: #### C UA2 ####[address] Protein (U) [Mass/Vol] 10 mg/dL Abnormal Negative [facility] Comment on above: Result Comment: . Performed By: #### C UA2 ####[address] RBC, Urine 26 - 50 Abnormal 0-2 [facility] Comment on above: Result Comment: . Performed By: #### C UA2 ####[facility] [address]und [id number] [place], [place] Specific [place],Urine 1.023 Normal 1.005 - 1.030 [facility] Comment on above: Result Comment: . Performed By: #### C UA2 ####[id number] [place], [place] Squamous Epithelial Negative Normal 3-5 [facility] Comment on above: Result Comment: . Performed By: #### C UA2 ####[id number] [place], [place] Urobilinogen,Urine Normal Normal Normal (0-1) [facility] Comment on above: Result Comment: . Performed By: #### C UA2 ####[id number] [place], [place] WBC, Urine 0 - 2 Normal 0-5 [facility] Comment on above: Result Comment: . Performed By: #### C UA2 ####[id number] [place], [place] Urinalysison 11-01-2021 Appearance (U) Clear Clear [...] Protein (U) [Mass/Vol] 10 mg/dL Abnormal Negative [facility] Comment on above: . RBC, UA 26-50 Abnormal 0 - 2 /[HPF] [facility] Comment on above: . Specific [place], Urine 1.023 [facility] Comment on above: . Squam Epithel, UA Negative 3 - 5 /[HPF] [facility] Comment on above: . Urobilinogen, Urine Normal Normal ( 0-1) mg/dL [facility] Comment on above: . WBC, UA 0-2 0 - 5 /[HPF] [facility] Comment on above: . Test Performed by [facility], [address] [place] [phone] [place] [address] - [facility] LAB [facility] Basic Metabolic Panelon -2 Anion gap [Moles/Vol] 6 mmol/L Normal 3-13 [facility] Comment on above: Performed By: #### P T/AP, TROPN, BMP3, HEMDF #### [address] Calcium [Mass/Vol] 9.1 mg/dL Normal 8.4-10.4 [facility] Comment on above: Performed By: #### P T/AP, TROPN, BMP3, HEMDF #### [address] CO2 [Moles/Vol] 28 mmol/L Normal 22-30 [facility] Comment on above: Performed By: #### P T/AP, TROPN, BMP3, HEMDF #### [address] Glucose [Mass/Vol] 120 mg/dL High 70-100 [facility] Comment on above: Performed By: #### P T/AP, TROPN, BMP3, HEMDF #### [address] Urea nitrogen [Mass/Vol] 17 mg/dL Normal 7-17 [facility] Comment on above: Performed By: #### P T/AP, TROPN, BMP3, HEMDF #### [address] Creatinine [Mass/Vol] 0.65 mg/dL Normal 0.52-1.25 [facility] Comment on above: Performed By: #### P T/AP, TROPN, BMP3, HEMDF #### [address] eGFR OTHER > 90.0 Normal >60 [facility] Comment on above: Result Comment: KDIG [...] #### P T/AP, TROPN, BMP3, HEMDF #### [address] GFR/1.73 sq M.predicted among blacks MDRD (S/P/Bld) [Vol rate/Area] mL/min/{1.73_m2} Normal >60 [facility] Comment on above: Performed By: #### P T/AP, TROPN, BMP3, HEMDF #### [address] Potassium [Moles/Vol] 3.8 mmol/L Normal 3.5-5.1 [facility] Comment on above: Performed By: #### P T/AP, TROPN, BMP3, HEMDF #### [address] Chloride [Moles/Vol] 101 mmol/L Normal 98-107 [facility] Comment on above: Performed By: #### P T/AP, TROPN, BMP3, HEMDF #### [facility] [address] [place] [address] Sodium [Moles/Vol] 134 mmol/L Low 135-145 [facility] Comment on above: Performed By: #### P T/AP, TROPN, BMP3, HEMDF #### [facility] [address] [place] [address] Anion gap [Moles/Vol] 6 mmol/L 3 - 13 mmol/L [facility] Calcium [Mass/Vol] 9.1 mg/dL 8.4 - 10. 4 mg/dL [facility] Chloride [Moles/Vol] 101 mmol/L 98 - 10 7 mmol/L [facility] CO2 [Moles/Vol] 28 mmol/L 22 - 30 mmol/L [facility] Creatinine [Mass/Vol] 0.65 mg/dL 0.52 - 1.25 mg/dL [facility] EGFR IF NonAfrican Mauritian >90.0 >60 mL/min [facility] Comment on above: KDIGO guidelines pro [...] mg/dL [facility] Test Performed by [facility], [address] [place] [phone] [place] [address] LAB [facility] CBC with Auto Differentialon 10-31-2021 [...] 11.3 g/dL Low 13.0 - 18.0 g/dL [facility] Interpretation and review of laboratory results [...] 10*3/uL [facility] Test Performed by [facility], [address] [place] [phone] [place] [address] LAB [facility] CR Abdomen APon 10-31-2021 CR Abdomen AP Patient Name: ANDREW SIFUENTES Diagnostic Radiology ACCESSION EXAM DATE/TIME PROCEDURE ORDERING PROVIDER [id number] 10/31/2021 20:36 EDT CR Abdomen AP [id number] -MYRON DURAN CPT code 53415 Reason For Exam (CR Abdomen AP) evp global product leadership shunt, 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 CHEST PORTABLE [...] Transcribed Date and Time: 10/31/2021 8:49 Normal [facility] CR Chest Portableon 11-01-19 CR Chest Portable Patient Name: ANDREW SIFUENTES Diagnostic Radiology ACCESSION EXAM DATE/TIME PROCEDURE ORDERING PROVIDER [id number] 10/31/2021 20:36 EDT CR Chest Portable [id number] -DURAN, MYRON CPT code 58580 Reason For Exam (CR Chest Portable) AMS [...] Transcribed Date and Time: 10/31/2021 8:49 Normal [facility] CT HEAD WO CONTRASTon 2021 Patient Name: ANDREW SIFUENTES Computed Tomography ACCESSION EXAM DATE/TIME PROCEDURE ORDERING PROVIDER [id number] 10/31/2021 20:[address] Head or Brain w/o [id number] -DURAN, MYRON Contrast CPT code 28098 Reason For Exam (CT Head or Brain w/o Contrast) AMS, previous MOTORS AND CONTROLS TESTER shunt Report Examination: CT Head Clinical Information: AMS, previous MOTORS AND CONTROLS TESTER shunt Comparison: 10/26/2021, MRI 10/27/2021 Findings: Serial [...] MD - 10/31/2021 [facility]: [id number] Computed Tomography ACCESSION EXAM DATE/TIME PROCEDURE ORDERING PROVIDER [id number] 10/31/2021 20:[address] Head or Brain w/o [id number] -MYRON DURAN Contrast CPT code 20374 Reason For Exam (CT Head or Brain w/o Contrast) AMS, previous MOTORS AND CONTROLS TESTER shunt Report Examination: CT Head Clinical Information: AMS, previous MOTORS AND CONTROLS TESTER shunt Comparison: 10/26/2021, MRI 10/27/2021 Findings: Serial [...] Tomography ACCESSION EXAM DATE/TIME PROCEDURE ORDERING PROVIDER [id number] 10/31/2021 20:[address] Head or Brain w/o [id number] -DURAN, MYRON Contrast CPT code 00427 Reason For Exam (CT Head or Brain w/o Contrast) AMS, previous MOTORS AND CONTROLS TESTER shunt Report Examination: CT Head Clinical Information: AMS, previous MOTORS AND CONTROLS TESTER shunt Comparison: 10/26/2021, MRI 10/27/2021 Findings: Serial [...] Transcribed Date and Time: 10/31/2021 8:54 Normal [facility] ED Provider Noteon ED Provider Note Emergency Department Encounter [facility] EMERGENCY DEPT Patient: Andrew Sifuentes [...] is cooperative and calm. According to the assisted, he has been more lethargic than normal, [...] are mis-transcribed.) Dante Kim MD Acute Care [facility] Dante Kim MD 10/31/21 2211 [facility] ED Provider Note [facility] EMERGENCY DEPT EMERGENCY DEPARTMENT ENCOUNTER Pt Name: Andrew Sifuentes Birthdate 1950 Date of evaluation: 10/31/2021 Provider: Myron Duran MD CHIEF COMPLAINT Chief Complaint Patient presents with ? Altered Mental Status Pt presents to ED via [facility] for complaint listed. Pt is from [facility]. Pt's LKW was 1000 hours today. [...] have a history of hydrocephalus with a MOTORS AND CONTROLS TESTER shunt. 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 REVIEW OF [...] (HCC) ? Kidney stone ? Neuropathy ? MOTORS AND CONTROLS TESTER (ventriculoperitoneal) shunt status SURGICAL HISTORY Past Surgical [...] of Transportati (more content not included)... Normal [facility] EKG 12 Lead - Chest Painon 0 10-31-2021 [facility] Test Date: 2021-10-31 Pat Name: ANDREW SIFUENTES Department: [facility] Room: 40 Gender: M [place]: ANDRES : 1950 Requested By: MYRON DURAN Order Number: [id number] Reading MD: Dante Kim Measurements Intervals [place] Rate: 91 P: 41 DC: 154 QRS: 50 QRSD: 147 T: 8 QT: 385 QTc: 474 Interpretive Statements Sinus rhythm Right bundle branch block Electronically Signed On 10-31-2021 20:36:25 EDT by Dante Kim [facility] Dante Kim M D - 10/31/2021 [facility] Test Date: 2021-10-31 Pat Name: ANDREW SIFUENTES Department: [facility] Room: 40 Gender: M [place]: ANDRES : 1950 Requested By: MYRON DURAN Order Number: [id number] Reading MD: Dante Kim Measurements Intervals [place] Rate: 91 P: 41 DC: 154 QRS: 50 QRSD: 147 T: 8 QT: 385 QTc: 474 Interpretive Statements Sinus rhythm Right bundle branch block Electronically Signed On 10-31-2021 20:36:25 EDT by Dante Kim [facility] Work Phone: EKG 12 Lead - Chest PainOrde red By: Dante Kim on 10-31-2021 [facility] Work Phone: Hemogram w/ [employer]od[employer] 10-31 Abs Baso Cnt 0.1 10*3/uL Normal 0.0-0.2 [facility] Comment on above: Performed By: #### P T/AP, TROPN, BMP3, HEMDF #### [address] [place], [place] Abs Neutrophile Cnt 6.0 10*3/uL Normal 1.8-7.0 [facility] Comment on above: Performed By: #### P T/AP, TROPN, BMP3, HEMDF #### [address] [place], [place] Basophils/100 WBC (Bld) 1.1 % Normal 0.0-2.0 [facility] Comment on above: Performed By: #### P T/AP, TROPN, BMP3, HEMDF #### [address] [place], [place] Eosinophils (Bld) [#/Vol] 0.2 10*3/uL Normal 0.0-0.5 [facility] Comment on above: Performed By: #### P T/AP, TROPN, BMP3, HEMDF #### [address] [place] [address] Eosinophils/100 WBC (Bld) 2.3 % Normal 1.0-6.0 [facility] Comment on above: Performed By: #### P T/AP, TROPN, BMP3, HEMDF #### [address] Erythrocyte distribution width (RBC) [Ratio] 17.2 % High 11.5-14.5 [facility] Comment on above: Performed By: #### P T/AP, TROPN, BMP3, HEMDF #### [address] [place], [place] Granulocytes/100 WBC (Bld) 61.8 % Normal 40.0-80.0 [facility] Comment on above: Performed By: #### P T/AP, TROPN, BMP3, HEMDF #### [address] Hematocrit (Bld) [Volume fraction] 35.0 % Low 40.0-52.0 [facility] Comment on above: Performed By: #### P T/AP, TROPN, BMP3, HEMDF #### [address] [place], [place] Hemoglobin (Bld) [Mass/Vol] 11.3 g/dL Low 13.0-18.0 [facility] Comment on above: Performed By: #### P T/AP, TROPN, BMP3, HEMDF #### [address] Lymphocytes (Bld) [#/Vol] 2.8 10*3/uL Normal 1.0-4.3 [facility] Comment on above: Performed By: #### P T/AP, TROPN, BMP3, HEMDF #### [address] Lymphocytes/100 WBC (Bld) 29.2 % Normal 20.0-40.0 [facility] Comment on above: Performed By: #### P T/AP, TROPN, BMP3, HEMDF #### [address] MCH (RBC) [Entitic mass] 27.5 pg Normal 26.0-34.0 [facility] Comment on above: Performed By: #### P T/AP, TROPN, BMP3, HEMDF #### [address] MCHC 32.3 % Normal 32.0-36.0 [facility] Comment on above: Performed By: #### P T/AP, TROPN, BMP3, HEMDF #### [address] MCV (RBC) [Entitic vol] 85.0 fL Normal 80.0-98.0 [facility] Comment on above: Performed By: #### P T/AP, TROPN, BMP3, HEMDF #### [address] [place], [place] Monocytes (Bld) [#/Vol] 0.5 10*3/uL Normal 0.0-0.8 [facility] Comment on above: Performed By: #### P T/AP, TROPN, BMP3, HEMDF #### [address] [place], [place] Monocytes/100 WBC (Bld) 5.6 % Normal 2.0-10.0 [facility] Comment on above: Performed By: #### P T/AP, TROPN, BMP3, HEMDF #### [address] [place], [place] Platelet mean volume (Bld) [Entitic vol] 8.6 fL Normal 7.4-12.4 [facility] Comment on above: Result Comment: MPV is a calculated measurement using platelet volume ratio. Performed By: #### P T/AP, TROPN, BMP3, HEMDF #### [address] [place], [place] Platelets (Bld) [#/Vol] 348 10*3/uL Normal 140-440 [facility] Comment on above: Performed By: #### P T/AP, TROPN, BMP3, HEMDF #### [address] [place], [place] RBC (Bld) [#/Vol] 4.12 10*6/uL Low 4.40-5.90 [facility] Comment on above: Performed By: #### P T/AP, TROPN, BMP3, HEMDF #### [address] [place], [place] WBC (Bld) [#/Vol] 9.7 10*3/uL Normal 3.6-10.7 [facility] Comment on above: Performed By: #### P T/AP, TROPN, BMP3, HEMDF #### [address] [place] [address] Laboratory - Coagulationon 0 10-31-2021 INR Coag (Bld) [Relative time] 2.0 {INR} [facility] Work Phone: Comment on above: Critical Value > 4.0 No Panel Informationon 10-31 Radiology Study observation (narrative) [facility] Work Phone: PROTIME/INR & PTTon 11-01-19 aPTT Coag (Bld) [Time] 39.2 s High 20.0 - 30.5 s [facility] Comment on above: NOTE: The therapeuti c time for Heparin anticoagulation, based on Xa activity inhibition, is an APTT of 46-80 seconds. INR Coag (Bld) [Relative time] 1.9 {INR} High [facility] Comment on above: Recommended Anticoag ulant [...] Interpretation and review of laboratory results Abnormal [facility] PT Coag (PPP) [Time] 19.8 s High 9.0 - 12.0 s [facility] Comment on above: . Test Performed by [facility], [address] [place] [phone] [place] [address] LAB [facility] Protime AND APTTon aPTT Coag (Bld) [Time] 39.2 s High 20.0-30.5 [facility] Comment on above: Result Comment: NOTE : The therapeutic time for Heparin anticoagulation, based on Xa activity inhibition, is an APTT of 46-80 seconds. Performed By: #### P T/AP, TROPN, BMP3, HEMDF #### [address] [place] [address] INR 1.9 High 0.9-1.1 [facility] Comment on above: Result Comment: Harry [...] #### P T/AP, TROPN, BMP3, HEMDF #### [address] [address] PT Coag (PPP) [Time] 19.8 s High 9.0-12.0 [facility] Comment on above: Result Comment: . Performed By: #### P T/AP, TROPN, BMP3, HEMDF #### [address] [address] Troponin Ion 10-31-2021 Troponin I.cardiac [Mass/Vol] ng/mL Normal 0.000-0.034 [facility] Comment on above: Result Comment: . Performed By: #### P T/AP, TROPN, BMP3, HEMDF #### [address] [address] Troponin x1on 10-31-2021 Troponin I.cardiac [Mass/Vol] ng/mL 0.000 - 0.034 ng/mL [facility] Comment on above: . Test Performed by [facility], [address] [place] [phone] [place] [address] LAB [facility] Whole blood prothrombin time on 10-31-2021 PT Coag (Bld) [Time] 23.7 s 11.7-14.9 [facility] Work Phone: XR ABDOMEN (KUB) (SINGLE AP VIEW)on 10-31-2021 Patient Name: ANDREW SIFUENTES Diagnostic Radiology ACCESSION EXAM DATE/TIME PROCEDURE ORDERING PROVIDER [id number] 10/31/2021 20:36 EDT CR Abdomen AP [id number] -MYRON DURAN CPT code 33489 Reason For Exam (CR Abdomen AP) evp global product leadership shunt, 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 CHEST PORTABLE [...] MD - 10/31/2021 Patient Name: [id number] Diagnostic Radiology ACCESSION EXAM DATE/TIME PROCEDURE ORDERING PROVIDER [id number] 10/31/2021 20:36 EDT CR Abdomen AP [id number] MYRON GALINDO CPT code 02008 Reason For Exam (CR Abdomen AP) evp global product leadership shunt, 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 CHEST PORTABLE [...] Radiology ACCESSION EXAM DATE/TIME PROCEDURE ORDERING PROVIDER [id number] 10/31/2021 20:36 EDT CR Chest Portable [id number] MYRON GALINDO CPT code 43419 Reason For Exam (CR Chest Portable) AMS [...] MD - 10/31/2021 Patient Name: AND[facility]W [facility]ES [id number] Diagnostic Radiology ACCESSION EXAM DATE/TIME PROCEDURE ORDERING PROVIDER [id number] 10/31/2021 20:36 EDT CR Chest Portable [id number] MYRON GALINDO CPT code 84321 Reason For Exam (CR Chest Portable) AMS [...] WENDELL Transcribed Date and Time: 10/31/2021 8:49 [facility] Work Phone: XR CHEST PORTABLEOrdered By: Huang Reynoso on 10-31-2021 [facility] Work Phone: Lupus Anticoagulanton 2021 DRVVT Confirmation Test Not Applicable Negative ratio [facility] Work Phone: dRVVT Screen 38 [facility] Work Phone: [phone] Hex Phosph Neut Test Not Applicable Negative NA [facility] Work Phone: [phone] Interpretation and review of laboratory results Abnormal [facility] Work Phone: [phone] LUPUS INTERPRETATION See Note [facility] Work Phone: [phone] Comment on above: Lupus anticoagulant not detected. [...] has not already been performed. Performed by [employer], [address] [place] [id number] [email or web address], Quiana Castro MD - Lab. Director Platelet Neutralization Not Applicable Negative NA [facility] Work Phone: [phone] PTT-D Heparin Neutralized 48 [facility] Work Phone: [phone] PTT-LA 55 High [facility] Work Phone: [phone] Reptilase Tm 17.6 <=21.9 sec [facility] Work Phone: [phone] Thrombin Time 25.3 High [facility] Work Phone: [phone] [facility] Work Phone: [phone] Lupus Anticoagulant Reflexiv e Panelon 10-29-2021 aPTT Coag (Bld) [Time] 55 s High 32-48 [facility] Comment on above: Performed By: #### C OVAG #### [facility] [address] [place] [address] aPTT Coag (Bld) [Time] 48 s Normal 32-48 [facility] Comment on above: Performed By: #### C OVAG #### [facility] [address] [place] [address] DRVVT 1:1 Mix Not Applicable Normal 33-44 [facility] Work Phone: Comment on above: Performed By: #### C OVAG #### [facility] [address] [place] [address] dRVVT Confirmation Not Applicable Normal Negative [facility] Comment on above: Performed By: #### C OVAG #### [facility] [address] [place] [address] dRVVT Screen 38 sec Normal 33-44 [facility] Comment on above: Performed By: #### C OVAG #### [facility] [address] [place] [address] Hexagonal Phospholipid Neutral Reflex Not Applicable Normal Negative [facility] Comment on above: Performed By: #### C OVAG #### [facility] [address] [place] [address] Lupus Anticoagulant Interpretation See Note Normal [facility] Comment on above: Result Comment: Lupu [...] has not already been performed. Performed by [employer], [address] [place] [id number] [email or web address], Quiana Castro MD - Lab. Director Performed By: #### C OVAG #### [facility] [address] [place] [address] Platelet Neutralization (PTT-D, Confirm) Not Applicable Normal Negative [facility] Comment on above: Performed By: #### C OVAG #### [facility] [address] [place] [address] PT Coag (PPP) [Time] 14.7 s Normal 12.0-15.5 [facility] Work Phone: Comment on above: Performed By: #### C OVAG #### [facility] [address] [place] [address] PTT-D 1:1 Mix Not Applicable Normal 32-48 [facility] Work Phone: Comment on above: Performed By: #### C OVAG #### [facility] [address] [place] [address] Reptilase Time 17.6 sec Normal <=21.9 [facility] Comment on above: Performed By: #### C OVAG #### [facility] [address] [place] [address] Thrombin Time 25.3 sec High 14.7-19.5 [facility] Comment on above: Performed By: #### C OVAG #### [facility] [address] [facility] [address] POCT COVID-19, Antigenon SARS-CoV-2 Nucleocapsid Antigen Negative Negative [facility] Comment on above: A negative result does not rule out the possibility of SARS-CoV-2 infection. NAAT-based methods should be considered for symptomatic patients presenting greater than seven days after onset of symptoms. Method: Lateral flow immunoassay. Fact sheets for healthcare providers and patients can be found at the following sites: https://www.fda.gov/media/108299/download https://www.fda.gov/media/442650/download Test Performed by [facility], [address] [address] LAB [facility] Prothrombin Timeon 2 INR 2.7 High 0.9-1.1 [facility] Comment on above: Result Comment: Harry [...] Infarction Performed By: #### P T #### [facility] [address] [place] [address] PT Coag (PPP) [Time] 27.4 s High 9.0-12.0 [facility] Comment on above: Result Comment: . Performed By: #### P T #### [facility] [address] [place] [address] Protime-INRon 10-29-2021 INR Coag (Bld) [Relative time] 2.7 {INR} High [facility] Work Phone: Comment on above: Recommended [...] Interpretation and review of laboratory results Abnormal [facility] Work Phone: PT Coag (PPP) [Time] 27.4 s High 9.0 - 12.0 s [facility] Work Phone: Comment on above: . Test Performed by [facility], [address] [place], [place], [place] [address] [facility] Work Phone: SARS-CoV-2 Antigenon 022 SARS-CoV-2 Antigen Negative Normal Negative [facility] Comment on above: Result Comment: A negative result does not rule out the possibility of SARS-CoV-2 infection. NAAT-based methods should be considered for symptomatic patients presenting greater than seven days after onset of symptoms. Method: Lateral flow immunoassay. Fact sheets for healthcare providers and patients can be found at the following sites: https://www.fda.gov/media/532597/download https://www.fda.gov/media/923396/download Performed By: #### C OVAG #### [facility] [address] [place] [address] CBCon 10-28-2021 Hematocrit (Bld) [Volume fraction] 33.4 % Low 40.0 - 52.0 % [facility] Work Phone: 1 Hemoglobin (Bld) [Mass/Vol] 11.0 g/dL Low 13.0 - 18.0 g/dL [facility] Work Phone: Interpretation and review of laboratory results Abnormal [facility] Work Phone: MCH (RBC) [Entitic mass] 27.8 pg 26.0 - 34.0 pg [facility] Work Phone: MCHC (RBC) [Mass/Vol] 32.8 % 32.0 - 36.0 % [facility] Work Phone: MCV (RBC) [Entitic vol] 84.8 fL 80.0 - 98.0 fL [facility] Work Phone: Platelet distribution width (Bld) [Ratio] 17.1 % High 11.5 - 14.5 % [facility] Phone: Platelet mean volume (Bld) [Entitic vol] 8.3 fL 7.4 - 12.4 fL [facility] Work Phone: Comment on above: MPV is a calculated measurement using platelet volume ratio. Platelets (Bld) [#/Vol] 344 10*3/uL 140 - 440 10*3/uL [facility] Work Phone: RBC (Bld) [#/Vol] 3.94 10*6/uL Low 4.40 - 5.9 0 10*6/uL [facility] Work Phone: WBC (Bld) [#/Vol] 10.0 10*3/uL 3.6 - 10.7 10*3/uL [facility] Work Phone: Test Performed by [facility], [address] [place], [place] [address] [facility] Work Phone: Comp Metabolic Panelon 10-28 ALP [Catalytic activity/Vol] 103 U/L Normal 38-126 [facility] Comment on above: Performed By: #### C A19O, LUPUS #### The performing lab is in the report. #### NSEO #### [facility] #### HEMDF, LDH3, BMP3, MG3, PT, CEA2 #### [address] [place] #### B2GPM, B2GPA, B2GPG #### [address] ALT [Catalytic activity/Vol] 26 U/L Normal 0-49 [facility] Comment on above: Result Comment: The ALT test is performed by an updated assay method. Please note that the reference intervals have been changed and are now sex specific. Performed By: #### C A19O, LUPUS #### The performing lab is in the report. #### NSEO #### [facility] #### HEMDF, LDH3, BMP3, MG3, PT, CEA2 #### [address] [place] #### B2GPM, B2GPA, B2GPG #### [address] AST [Catalytic activity/Vol] 24 U/L Normal 15-46 [facility] Comment on above: Performed By: #### C A19O, LUPUS #### The performing lab is in the report. #### NSEO #### [facility] #### HEMDF, LDH3, BMP3, MG3, PT, CEA2 #### [address] [place] #### B2GPM, B2GPA, B2GPG #### [address] Calcium [Mass/Vol] 9.1 mg/dL Normal 8.4-10.4 [facility] Comment on above: Performed By: #### C A19O, LUPUS #### The performing lab is in the report. #### NSEO #### [facility] #### HEMDF, LDH3, BMP3, MG3, PT, CEA2 #### [address] [place] #### B2GPM, B2GPA, B2GPG #### [address] Glucose [Mass/Vol] 117 mg/dL High 70-100 [facility] Comment on above: Performed By: #### C A19O, LUPUS #### The performing lab is in the report. #### NSEO #### [facility] #### HEMDF, LDH3, BMP3, MG3, PT, CEA2 #### [facility] [address] [place] [address] #### B2GPM, B2GPA, B2GPG #### [address] Urea nitrogen [Mass/Vol] 16 mg/dL Normal 7-17 [facility] Comment on above: Performed By: #### C A19O, LUPUS #### The performing lab is in the report. #### NSEO #### [facility] #### HEMDF, LDH3, BMP3, MG3, PT, CEA2 #### [facility] [address] [place] [address] #### B2GPM, B2GPA, B2GPG #### [address] Anion gap [Moles/Vol] 5 mmol/L Normal 3-13 [facility] Comment on above: Performed By: #### C A19O, LUPUS #### The performing lab is in the report. #### NSEO #### [facility] #### HEMDF, LDH3, BMP3, MG3, PT, CEA2 #### [facility] [address] [place] [address] #### B2GPM, B2GPA, B2GPG #### [address] Bilirubin [Mass/Vol] 0.4 mg/dL Normal 0.2-1.3 [facility] Comment on above: Performed By: #### C A19O, LUPUS #### The performing lab is in the report. #### NSEO #### [facility] #### HEMDF, LDH3, BMP3, MG3, PT, CEA2 #### [facility] [address] [place] [address] #### B2GPM, B2GPA, B2GPG #### [address] CO2 [Moles/Vol] 29 mmol/L Normal 22-30 [facility] Comment on above: Performed By: #### C A19O, LUPUS #### The performing lab is in the report. #### NSEO #### [facility] #### HEMDF, LDH3, BMP3, MG3, PT, CEA2 #### [facility] [address] [place] [address] #### B2GPM, B2GPA, B2GPG #### [address] Creatinine [Mass/Vol] 0.71 mg/dL Normal 0.52-1.25 [facility] Comment on above: Performed By: #### C A19O, LUPUS #### The performing lab is in the report. #### NSEO #### [facility] #### HEMDF, LDH3, BMP3, MG3, PT, CEA2 #### [facility] [address] [place] [address] #### B2GPM, B2GPA, B2GPG #### [address] eGFR OTHER > 90.0 Normal >60 [facility] Comment on above: Result Comment: KDIG [...] HEMDF, LDH3, BMP3, MG3, PT, CEA2 #### [facility] [address] [place] [address] #### B2GPM, B2GPA, B2GPG #### [address] GFR/1.73 sq M.predicted among blacks MDRD (S/P/Bld) [Vol rate/Area] mL/min/{1.73_m2} Normal >60 [facility] Comment on above: Performed By: #### C A19O, LUPUS #### The performing lab is in the report. #### NSEO #### [facility] #### HEMDF, LDH3, BMP3, MG3, PT, CEA2 #### [place] [address] [place] [address] #### B2GPM, B2GPA, B2GPG #### [address] Protein [Mass/Vol] 7.1 g/dL Normal 6.3-8.2 [facility] Comment on above: Performed By: #### C A19O, LUPUS #### The performing lab is in the report. #### NSEO #### [facility] #### HEMDF, LDH3, BMP3, MG3, PT, CEA2 #### [address] [place] [address] #### B2GPM, B2GPA, B2GPG #### [address] [address] Potassium [Moles/Vol] 3.5 mmol/L Normal 3.5-5.1 [facility] Comment on above: Performed By: #### C A19O, LUPUS #### The performing lab is in the report. #### NSEO #### [facility] #### HEMDF, LDH3, BMP3, MG3, PT, CEA2 #### [facility] [address] [place] [address] #### B2GPM, B2GPA, B2GPG #### [address] [address] Sodium [Moles/Vol] 138 mmol/L Normal 135-145 [facility] Comment on above: Performed By: #### C A19O, LUPUS #### The performing lab is in the report. #### NSEO #### [facility] #### HEMDF, LDH3, BMP3, MG3, PT, CEA2 #### [place] [address] [place] [address] #### B2GPM, B2GPA, B2GPG #### [address] [address] Albumin [Mass/Vol] 3.7 g/dL Normal 3.5-5.0 [facility] Comment on above: Performed By: #### C A19O, LUPUS #### The performing lab is in the report. #### NSEO #### [facility] #### HEMDF, LDH3, BMP3, MG3, PT, CEA2 #### [facility] [address] [place] [address] #### B2GPM, B2GPA, B2GPG #### [address] [address] Chloride [Moles/Vol] 104 mmol/L Normal 98-107 [facility] Comment on above: Performed By: #### C A19O, LUPUS #### The performing lab is in the report. #### NSEO #### [facility] #### HEMDF, LDH3, BMP3, MG3, PT, CEA2 #### [facility] [address] [place] [address] #### B2GPM, B2GPA, B2GPG #### Contact At [employer] [address] [place] [address] Comprehensive Metabolic Pane kiel 10-28-2021 Albumin [Mass/Vol] 3.7 g/dL 3.5 - 5.0 g/dL [facility] Work Phone: [phone] ALP (Bld) [Catalytic activity/Vol] 103 U/L 38 - 126 U/L [facility] Work Phone: [phone] ALT [Catalytic activity/Vol] 26 U/L 0 - 49 U/L [facility] Work Phone: [phone] Comment on above: The ALT test is perf ormed by an updated assay method. Please note that the reference intervals have been changed and are now sex specific. Anion gap [Moles/Vol] 5 mmol/L 3 - 13 mmol/L [facility] Work Phone: [phone] AST [Catalytic activity/Vol] 24 U/L 15 - 46 U/L [facility] Work Phone: [phone] Bilirubin [Mass/Vol] 0.4 mg/dL 0.2 - 1 .3 mg/dL [facility] Work Phone: [phone] Calcium [Mass/Vol] 9.1 mg/dL 8.4 - 10. 4 mg/dL [facility] Work Phone: [phone] Chloride [Moles/Vol] 104 mmol/L 98 - 10 7 mmol/L [facility] Work Phone: [phone] CO2 [Moles/Vol] 29 mmol/L 22 - 30 mmol/L [facility] Work Phone: [phone] Creatinine [Mass/Vol] 0.71 mg/dL 0.52 - 1.25 mg/dL [facility] Work Phone: [phone] EGFR IF NonAfrican Mauritian >90.0 >60 mL/min [facility] Work Phone: [phone] Comment on above: KDIGO guidelines pro [...] fraction] 7.1 g/dL 6.3 - 8.2 g/dL [facility] Work Phone: GFR/1.73 sq M.predicted among blacks MDRD (S/P/Bld) [Vol rate/Area] mL/min/{1.73_m2} >60 mL/min [facility] Work Phone: [phone] Glucose [Mass/Vol] 117 mg/dL High 70 - 100 mg/dL [facility] Work Phone: [phone] Interpretation and review of laboratory results Abnormal [facility] Work Phone: [phone] Potassium [Moles/Vol] 3.5 mmol/L 3.5 - 5.1 mmol/L [facility] Work Phone: [phone] Sodium [Moles/Vol] 138 mmol/L 135 - 145 mmol/L [facility] Work Phone: Urea nitrogen (BldV) [Mass/Vol] 16 mg/dL 7 - 17 mg/dL [facility] Work Phone: [phone] Test Performed by [facility], [address] [place], [place] [id number] [place] [address] LAB [facility] Work Phone: Hemogramon 10-28-2021 Erythrocyte distribution width (RBC) [Ratio] 17.1 % High 11.5-14.5 [facility] Comment on above: Performed By: #### C A19O, LUPUS #### The performing lab is in the report. #### NSEO #### [facility] #### HEMDF, LDH3, BMP3, MG3, PT, CEA2 #### [place] [address] [place] #### B2GPM, B2GPA, B2GPG #### [address] Hematocrit (Bld) [Volume fraction] 33.4 % Low 40.0-52.0 [facility] Comment on above: Performed By: #### C A19O, LUPUS #### The performing lab is in the report. #### NSEO #### [facility] #### HEMDF, LDH3, BMP3, MG3, PT, CEA2 #### [address] [place] #### B2GPM, B2GPA, B2GPG #### [address] Hemoglobin (Bld) [Mass/Vol] 11.0 g/dL Low 13.0-18.0 [facility] Comment on above: Performed By: #### C A19O, LUPUS #### The performing lab is in the report. #### NSEO #### [facility] #### HEMDF, LDH3, BMP3, MG3, PT, CEA2 #### [address] [place] #### B2GPM, B2GPA, B2GPG #### [address] MCH (RBC) [Entitic mass] 27.8 pg Normal 26.0-34.0 [facility] Comment on above: Performed By: #### C A19O, LUPUS #### The performing lab is in the report. #### NSEO #### [facility] #### HEMDF, LDH3, BMP3, MG3, PT, CEA2 #### [address] [place] #### B2GPM, B2GPA, B2GPG #### [address] MCHC 32.8 % Normal 32.0-36.0 [facility] Comment on above: Performed By: #### C A19O, LUPUS #### The performing lab is in the report. #### NSEO #### [facility] #### HEMDF, LDH3, BMP3, MG3, PT, CEA2 #### [facility] [address] [place] [address] #### B2GPM, B2GPA, B2GPG #### [address] MCV (RBC) [Entitic vol] 84.8 fL Normal 80.0-98.0 [facility] Comment on above: Performed By: #### C A19O, LUPUS #### The performing lab is in the report. #### NSEO #### [facility] #### HEMDF, LDH3, BMP3, MG3, PT, CEA2 #### [facility] [address] [place] [address] #### B2GPM, B2GPA, B2GPG #### [address] Platelet mean volume (Bld) [Entitic vol] 8.3 fL Normal 7.4-12.4 [facility] Comment on above: Result Comment: MPV is a calculated measurement using platelet volume ratio. Performed By: #### C A19O, LUPUS #### The performing lab is in the report. #### NSEO #### [facility] #### HEMDF, LDH3, BMP3, MG3, PT, CEA2 #### [facility] [address] [place] [address] #### B2GPM, B2GPA, B2GPG #### [address] Platelets (Bld) [#/Vol] 344 10*3/uL Normal 140-440 [facility] Comment on above: Performed By: #### C A19O, LUPUS #### The performing lab is in the report. #### NSEO #### [facility] #### HEMDF, LDH3, BMP3, MG3, PT, CEA2 #### [facility] [address] [place] [address] #### B2GPM, B2GPA, B2GPG #### [address] RBC (Bld) [#/Vol] 3.94 10*6/uL Low 4.40-5.90 [facility] Comment on above: Performed By: #### C A19O, LUPUS #### The performing lab is in the report. #### NSEO #### [facility] #### HEMDF, LDH3, BMP3, MG3, PT, CEA2 #### [facility] [address] [place] [address] #### B2GPM, B2GPA, B2GPG #### [address] WBC (Bld) [#/Vol] 10.0 10*3/uL Normal 3.6-10.7 [facility] Comment on above: Performed By: #### C A19O, LUPUS #### The performing lab is in the report. #### NSEO #### [facility] #### HEMDF, LDH3, BMP3, MG3, PT, CEA2 #### [place] [address] [place] [address] #### B2GPM, B2GPA, B2GPG #### [address] Neuron Specific Enolaseon Neuron Specific Enolase 20.8 Normal [facility] Comment on above: Result Comment: Neur on Specific Enolase, Serum 20.8 ng/mL H (Ref Interval: <=12.7) NSE and Hgb are elevated in the specimen. The elevated NSE may be a result of hemolysis as NSE is expressed in red blood cells. Interpret results with caution. INTERPRETIVE INFORMATION: Neuron Specific Enolase in Serum This assay is performed using the [employer] NSE Kryptor Immunoassay. Results obtained with different assay methods or kits cannot be used interchangeably. Results cannot be interpreted as absolute evidence of the presence or absence of malignant disease. This test was developed and its performance characteristics determined by [employer]. It has not been cleared or approved by the [place] Food and Drug Administration. This test was performed in a CLIA certified laboratory and is intended for clinical purposes. Performed By: #### C OVAG #### [facility] [address] [place] [address] Neuron specific enolase (NSE )on 10-28-2021 Neuron Specific Enolase 20.8 [facility] Work Phone: Comment on above: Neuron Specific Enol ase, Serum 20.8 ng/mL H (Ref Interval: <=12.7) NSE and Hgb are elevated in the specimen. The elevated NSE may be a result of hemolysis as NSE is expressed in red blood cells. Interpret results with caution. INTERPRETIVE INFORMATION: Neuron Specific Enolase in Serum This assay is performed using the [employer] NSE Kryptor Immunoassay. Results obtained with different assay methods or kits cannot be used interchangeably. Results cannot be interpreted as absolute evidence of the presence or absence of malignant disease. This test was developed and its performance characteristics determined by [employer]. It has not been cleared or approved by the [place] Food and Drug Administration. This test was performed in a CLIA certified laboratory and is intended for clinical purposes. 1 [facility] Work Phone: Prothrombin Timeon 2 INR 3.1 High 0.9-1.1 [facility] Comment on above: Result Comment: Harry [...] HEMDF, LDH3, BMP3, MG3, PT, CEA2 #### [facility] [address] [place] [address] #### B2GPM, B2GPA, B2GPG #### [address] [phone] PT Coag (PPP) [Time] 30.8 s High 9.0-12.0 [facility] Comment on above: Result Comment: . Performed By: #### C A19O, LUPUS #### The performing lab is in the report. #### NSEO #### [facility] #### HEMDF, LDH3, BMP3, MG3, PT, CEA2 #### [facility] [address] [place] [address] #### B2GPM, B2GPA, B2GPG #### [address] [phone] Protime-INRon 10-28-2021 INR Coag (Bld) [Relative time] 3.1 {INR} High [facility] Work Phone: Comment on above: Recommended [...] Interpretation and review of laboratory results Abnormal [facility] Work Phone: PT Coag (PPP) [Time] 30.8 s High 9.0 - 12.0 s [facility] Work Phone: Comment on above: . Test Performed by [facility], [address], [place], [place] [id number] [place] [address] LAB [facility] Work Phone: MRI BRAIN WO CONTRASTon 10-06 Patient Name: ANDREW SIFUENTES Magnetic Res[facility] Imaging ACCESSION EXAM DATE/TIME PROCEDURE ORDERING PROVIDER [id number] 10/27/2021 13:14 EDT MRI Brain w/o Contrast UNASSIGNED, UNASSIGNED CPT code 17131 Reason For Exam (MRI Brain w/o Contrast) stroke Patient has MOTORS AND CONTROLS TESTER shunt in place, please follow Radiology protocol [...] Imaging ACCESSION EXAM DATE/TIME PROCEDURE ORDERING PROVIDER [id number] 10/27/2021 13:14 EDT MRI Brain w/o Contrast UNASSIGNED, UNASSIGNED CPT code 04866 Reason For Exam (MRI Brain w/o Contrast) stroke Patient has MOTORS AND CONTROLS TESTER shunt in place, please follow Radiology protocol [...] and Time: 10/27/2021 2:39 [facility] Work Phone: [facility] Work Phone: MRI Brain w/o Contraston MRI Brain w/o Contrast [id number] Resonance Imaging ACCESSION EXAM DATE/TIME PROCEDURE ORDERING PROVIDER [id number] 10/27/2021 13:14 EDT MRI Brain w/o Contrast UNASSIGNED, UNASSIGNED CPT code 15550 Reason For Exam (MRI Brain w/o Contrast) stroke Patient has MOTORS AND CONTROLS TESTER shunt in place, please follow Radiology protocol [...] Transcribed Date and Time: 10/27/2021 2:39 Normal [facility] Prothrombin Timeon 2 INR 2.1 High 0.9-1.1 [facility] Comment on above: Result Comment: Harry [...] Infarction Performed By: #### P T #### [facility] [address] [place] [address] PT Coag (PPP) [Time] 21.9 s High 9.0-12.0 [facility] Work Phone: Comment on above: . Result Comment: . Performed By: #### P T #### [facility] [address] [place] [address] Protime-INRon 10-27-2021 INR Coag (Bld) [Relative time] 2.1 {INR} High [facility] Work Phone: Comment on above: Recommended [...] Interpretation and review of laboratory results Abnormal [facility] Work Phone: Test Performed by [facility], [address], [place], [place] [address] [facility] Work Phone: CT HEAD WO CONTRASTon 2021 Patient Name: ANDREW SIFUENTES Computed Tomography ACCESSION EXAM DATE/TIME PROCEDURE ORDERING PROVIDER [id number] 10/26/2021 11:[address] Head or Brain w/o EDWIN, DONKEY ENGINE FIRER/FIREMAN, SARINA Contrast CPT code 58317 Reason For Exam (CT Head or Brain w/o Contrast) hydrocephalus. thank you Report CLINICAL INFORMATION: Hydrocephalus. Shunt. 3 mm axial cuts through the head are obtained without IV contrast. The examination is compared to a previous study dated 06/29/2014. FINDINGS: Old MOTORS AND CONTROLS TESTER shunt tubing is noted bilaterally. The new [...] are clear. IMPRESSION: 1. Old and new MOTORS AND CONTROLS TESTER shunt tubing. 2. No hydrocephalus. 3. Atrophy and evidence of small-vessel ischemic disease. 4. No CT evidence of an acute intracranial process. Report Dictated on --- Final --- Dictating Physician: MD SOLANO JEFFREY Signed Date and Time: 10/26/2021 11:42 am Signed by: MD SOLANO JEFFREY Transcribed Date and Time: 10/26/2021 11:43 GUY ARMENDARIZ [facility] Albert Solano MD - 10/26/2021 Patient Name: ANDREW SIFUENTES Computed Tomography ACCESSION EXAM DATE/TIME PROCEDURE ORDERING PROVIDER [id number] 10/26/2021 11:[address] Head or Brain w/o EDWIN, DONKEY ENGINE FIRER/FIREMAN, SARINA Contrast CPT code 88933 Reason For Exam (CT Head or Brain w/o Contrast) hydrocephalus. thank you Report CLINICAL INFORMATION: Hydrocephalus. Shunt. 3 mm axial cuts through the head are obtained without IV contrast. The examination is compared to a previous study dated 06/29/2014. FINDINGS: Old MOTORS AND CONTROLS TESTER shunt tubing is noted bilaterally. The new [...] are clear. IMPRESSION: 1. Old and new MOTORS AND CONTROLS TESTER shunt tubing. 2. No hydrocephalus. 3. Atrophy [...] Brain w/o Contrast Patient Name[id number] Computed Tomography ACCESSION EXAM DATE/TIME PROCEDURE ORDERING PROVIDER [id number] 10/26/2021 11:[address] Head or Brain w/o JUNIE PINEDA ALLISON Contrast CPT code 02774 Reason For Exam (CT Head or Brain w/o Contrast) hydrocephalus. thank you Report CLINICAL INFORMATION: Hydrocephalus. Shunt. 3 mm axial cuts through the head are obtained without IV contrast. The examination is compared to a previous study dated 06/29/2014. FINDINGS: Old MOTORS AND CONTROLS TESTER shunt tubing is noted bilaterally. The new [...] are clear. IMPRESSION: 1. Old and new MOTORS AND CONTROLS TESTER shunt tubing. 2. No hydrocephalus. 3. Atrophy and evidence of small-vessel ischemic disease. 4. No CT evidence of an acute intracranial process. 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 Barreto REASON FOR EXAM: seizures HISTORY: Andrew Sifuentes is a 71 y.o. 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 At present patient is awake, follows commands, was able to tell his name, and that he was in hospital but not oriented to time. Per documentation patient had NCSE in May 2021, was on Vimpat, but it was discontinued as there was no evidence of recurrent seizures in July [address] [facility], per daughter patient was on Dilantin for 31 yrs. Per daughter patient had seizures in the past and also felt he had staring episodes this morning. Per daughter patient has been essentially bed bound in [place] since May 2021 but prior to that [...] study with video was carried out at [facility]. Scalp electrodes were positioned in person by an senior technologist, following patient education, according to the 10-20 International system of electrode placement and maintained for integrity and quality of the recording. EEG data with video was recorded continuously and digitally stored. The senior technologist reviewed all automated detections and manual [...] No normal vari (more content not included)... [employer] Work Phone: [employer] Work Phone: No Panel Informationon 10-26 Radiology Study observation (narrative) [facility] Work Phone: Prothrombin Timeon 2 INR 1.9 High 0.9-1.1 [facility] Comment on above: Result Comment: Harry [...] Infarction Performed By: #### C OVAG #### [facility] [address] [place] [address] PT Coag (PPP) [Time] 19.7 s High 9.0-12.0 [facility] Comment on above: Result Comment: . Performed By: #### C OVAG #### [facility] [address] [place] [address] Protime-INRon 10-26-2021 INR Coag (Bld) [Relative time] 1.9 {INR} High [facility] Work Phone: Comment on above: Recommended [...] Interpretation and review of laboratory results Abnormal [facility] Work Phone: PT Coag (PPP) [Time] 19.7 s High 9.0 - 12.0 s [facility] Work Phone: Comment on above: . Test Performed by [facility], [address] [place], [place], [place] [address] [facility] Work Phone: CA 19-9on 10-25-2021 CA 19-9 17 U/mL Normal <=35 [facility] Work Phone: Comment on above: INTERPRETIVE [...] or absence of malignant disease. Performed By: [employer] [address] [place] [address] Supervisor Policy Change Clerks: Quiana Castro MD Result Comment: INTE RPRETIVE [...] or absence of malignant disease. Performed By: [employer] [address] [place] [id number] Supervisor Policy Change Clerks: Quiana Castro MD Performed By: #### C OVAG #### [facility] [address] [place] [address] Cancer Antigen 19-9on 2021 [employer] Work Phone: Prothrombin Timeon INR 1.5 High 0.9-1.1 [facility] [email or web address] Comment on above: Result Comment: Harry mmended [...] Infarction Performed By: #### P T #### [facility] [email or web address] [address] [place] [address] PT Coag (PPP) [Time] 15.6 s High 9.0-12.0 [facility] [employer] [facility] [email or web address] Comment on above: Result Comment: . Performed By: #### P T #### [facility] [address] [place] [address] Protime-INRon 06-21-2022 INR Coag (Bld) [Relative time] 1.5 {INR} High [facility] Work Phone: Comment on above: Recommended Anticoag [...] review of laboratory results Abnormal [facility] Work Phone: PT Coag (PPP) [Time] 15.6 s High 9.0 - 12.0 s [facility] Work Phone: Comment on above: . Test Performed by [facility], [address] [place] [id number] [place] [address] LAB [facility] Work Phone: B-2 Glycoprotein (IGA)on Beta-2 Glyco 1 IgA <2.0 U/mL [facility] Work Phone: Comment on above: Interpretive Informa tion: Results equal to or greater than 20 U/mL = POSITIVE Results less than 20 U/mL = NEGATIVE B2 Glycoprotein I (IgM) Abon 10-24-2021 Beta-2 Glyco 1 IgM <1.5 U/mL [facility] Work Phone: Comment on above: Interpretive Informa tion: Results equal to or greater than 20 U/mL = POSITIVE Results less than 20 U/mL = NEGATIVE B2 Glycoprotein I Igg Abon 0 10-24-2021 Beta-2 Glyco 1 IgG <1.4 U/mL [facility] Work Phone: Comment on above: Interpretive Informa tion: Results equal to or greater than 20 U/mL = POSITIVE Results less than 20 U/mL = NEGATIVE Basic Metabolic Panelon 10-06 Anion gap [Moles/Vol] 8 mmol/L Normal 3-13 [facility] Comment on above: Performed By: #### C A19O, LUPUS #### The performing lab is in the report. #### NSEO #### [facility] #### HEMDF, LDH3, BMP3, MG3, PT, CEA2 #### [place] [address] [place] [address] #### B2GPM, B2GPA, B2GPG #### [address] Calcium [Mass/Vol] 8.8 mg/dL Normal 8.4-10.4 [facility] Comment on above: Performed By: #### C A19O, LUPUS #### The performing lab is in the report. #### NSEO #### [facility] #### HEMDF, LDH3, BMP3, MG3, PT, CEA2 #### [address] [place] #### B2GPM, B2GPA, B2GPG #### [address] CO2 [Moles/Vol] 25 mmol/L Normal 22-30 [facility] Comment on above: Performed By: #### C A19O, LUPUS #### The performing lab is in the report. #### NSEO #### [facility] #### HEMDF, LDH3, BMP3, MG3, PT, CEA2 #### [address] [place] #### B2GPM, B2GPA, B2GPG #### [address] Creatinine [Mass/Vol] 0.74 mg/dL Normal 0.52-1.25 [facility] Comment on above: Performed By: #### C A19O, LUPUS #### The performing lab is in the report. #### NSEO #### [facility] #### HEMDF, LDH3, BMP3, MG3, PT, CEA2 #### [address] [place] [address] #### B2GPM, B2GPA, B2GPG #### [facility] [address] [place], [place] eGFR OTHER > 90.0 Normal >60 [facility] Comment on above: Result Comment: KDIG [...] BMP3, MG3, PT, CEA2 #### [facility] [address] [place] [address] #### B2GPM, B2GPA, B2GPG #### [address] GFR/1.73 sq M.predicted among blacks MDRD (S/P/Bld) [Vol rate/Area] mL/min/{1.73_m2} Normal >60 [facility] Comment on above: Performed By: #### C A19O, LUPUS #### The performing lab is in the report. #### NSEO #### [facility] #### HEMDF, LDH3, BMP3, MG3, PT, CEA2 #### [facility] [address] [place] [address] #### B2GPM, B2GPA, B2GPG #### [facility] [address] [place], [place] Glucose [Mass/Vol] 116 mg/dL High 70-100 [facility] Comment on above: Performed By: #### C A19O, LUPUS #### The performing lab is in the report. #### NSEO #### [facility] #### HEMDF, LDH3, BMP3, MG3, PT, CEA2 #### [place] [address] [facility] [place] [address] #### B2GPM, B2GPA, B2GPG #### [address] Urea nitrogen [Mass/Vol] 19 mg/dL High 7-17 [facility] Comment on above: Performed By: #### C A19O, LUPUS #### The performing lab is in the report. #### NSEO #### [facility] #### HEMDF, LDH3, BMP3, MG3, PT, CEA2 #### [address] [place] [address] #### B2GPM, B2GPA, B2GPG #### [address] Chloride [Moles/Vol] 107 mmol/L Normal 98-107 [facility] Comment on above: Performed By: #### C A19O, LUPUS #### The performing lab is in the report. #### NSEO #### [facility] #### HEMDF, LDH3, BMP3, MG3, PT, CEA2 #### [address] [place] [address] #### B2GPM, B2GPA, B2GPG #### [address] Potassium [Moles/Vol] 3.9 mmol/L Normal 3.5-5.1 [facility] Comment on above: Performed By: #### C A19O, LUPUS #### The performing lab is in the report. #### NSEO #### [facility] #### HEMDF, LDH3, BMP3, MG3, PT, CEA2 #### [facility] [address] [place] [address] #### B2GPM, B2GPA, B2GPG #### [facility] [address] [place], [place] Sodium [Moles/Vol] 140 mmol/L Normal 135-145 [facility] Comment on above: Performed By: #### C A19O, LUPUS #### The performing lab is in the report. #### NSEO #### [facility] #### HEMDF, LDH3, BMP3, MG3, PT, CEA2 #### [facility] [address] [place] [address] #### B2GPM, B2GPA, B2GPG #### [facility] [address] [place], [place] Anion gap [Moles/Vol] 8 mmol/L 3 - 13 mmol/L [facility] Calcium [Mass/Vol] 8.8 mg/dL 8.4 - 10. 4 mg/dL [facility] Chloride [Moles/Vol] 107 mmol/L 98 - 10 7 mmol/L [facility] CO2 [Moles/Vol] 25 mmol/L 22 - 30 mmol/L [facility] Creatinine [Mass/Vol] 0.74 mg/dL 0.52 - 1.25 mg/dL [facility] EGFR IF NonAfrican Mauritian >90.0 >60 mL/min [facility] Comment on above: KDIGO guidelines pro [...] mg/dL [facility] Test Performed by [facility], [address] [place], [place] [address] [facility] Beta-2 Glycoprotein I IgAon 10-24-2021 Beta-2 Glycoprotein I IgA < 2.0 Normal [facility] Comment on above: Result Comment: Inte rpretive Information: Results equal to or greater than 20 U/mL = POSITIVE Results less than 20 U/mL = NEGATIVE Performed By: #### C OVAG #### [facility] [address] [facility] [place] [address] Beta-2 Glycoprotein I IgGon 10-24-2021 Beta-2 Glycoprotein I IgG < 1.4 Normal [facility] Comment on above: Result Comment: Inte rpretive Information: Results equal to or greater than 20 U/mL = POSITIVE Results less than 20 U/mL = NEGATIVE Performed By: #### C OVAG #### [facility] [address] [place] [address] Beta-2 Glycoprotein I IgMon 10-24-2021 Beta-2 Glycoprotein I IgM < 1.5 Normal [facility] Comment on above: Result Comment: Inte rpretive Information: Results equal to or greater than 20 U/mL = POSITIVE Results less than 20 U/mL = NEGATIVE Performed By: #### C OVAG #### [facility] [address] [place] [address] No Panel Informationon 10-24 [facility] Test Performed by [facility], [address] [place] [address] [facility] Work Phone: PROTEIN C FUNCTIONALon 10-24 Interpretation and review of laboratory results Abnormal [facility] Protein C-Functional 185 % High 83 [...] reference intervals for this test in the [facility] ([facility]). Performed by [employer], [address] [facility],[place] [id number] [email or web address], Quiana Castro MD - Lab. Director Protein C, Functionalon 10-06 Protein C, Functional 185 % High 83-168 [facility] Comment on above: Result Comment: INTE [...] reference intervals for this test in the [facility] ([facility]). Performed by [employer], [address] [place] [address] [email or web address], Quiana Castro MD - Lab. Director Performed By: #### P T #### [facility] [address] [place] [address] Protein S, Functionalon 10-06 Protein S, Functional 138 % Normal 66-143 [facility] Comment on above: INTERPRETIVE INFORMA TION: Protein [...] reference intervals for this test in the [facility] ([facility]). Performed by [employer], [address] [facility] [place] [address] [email or web address], Quiana Castro MD - Lab. Director Result [...] reference intervals for this test in the [facility] ([facility]). Performed by [employer], [address] [facility] [address] [email or web address], Quiana Castro MD - Lab. Director Performed By: #### P T #### Contact At Once! [facility] [address] [place] [address] Prothrombin Timeon 2 INR 1.2 High 0.9-1.1 [facility] [email or web address] Comment on above: Result Comment: Harry mmended [...] HEMDF, LDH3, BMP3, MG3, PT, CEA2 #### [facility] [address] [place] [address] #### B2GPM, B2GPA, B2GPG #### [employer] [email or web address] [address] [place] [address] PT Coag (PPP) [Time] 12.6 s High 9.0-12.0 [facility] [email or web address] Comment on above: Result Comment: . Performed By: #### C A19O, LUPUS #### The performing lab is in the report. #### NSEO #### [facility] #### HEMDF, LDH3, BMP3, MG3, PT, CEA2 #### [facility] [address] [place] [address] #### B2GPM, B2GPA, B2GPG #### [address] [id number] Protime-INRon 10-24-2021 INR Coag (Bld) [Relative time] 1.2 {INR} High [facility] Comment on above: Recommended Anticoag ulant [...] Interpretation and review of laboratory results Abnormal [facility] PT Coag (PPP) [Time] 12.6 s High 9.0 - 12.0 s [facility] Comment on above: . Test Performed by [facility], [address] [place], [address] LAB [facility] Basic Metabolic Panelon 10-05 Anion gap [Moles/Vol] 10 mmol/L Normal 3-13 [facility] Comment on above: Performed By: #### C A19O, LUPUS #### The performing lab is in the report. #### NSEO #### [facility] #### HEMDF, LDH3, BMP3, MG3, PT, CEA2 #### [facility] [address] [place] [address] #### B2GPM, B2GPA, B2GPG #### [address] [address] Calcium [Mass/Vol] 9.6 mg/dL Normal 8.4-10.4 [facility] Comment on above: Performed By: #### C A19O, LUPUS #### The performing lab is in the report. #### NSEO #### [facility] #### HEMDF, LDH3, BMP3, MG3, PT, CEA2 #### [facility] [address] [place] [address] #### B2GPM, B2GPA, B2GPG #### [address] CO2 [Moles/Vol] 27 mmol/L Normal 22-30 [facility] Comment on above: Performed By: #### C A19O, LUPUS #### The performing lab is in the report. #### NSEO #### [facility] #### HEMDF, LDH3, BMP3, MG3, PT, CEA2 #### [address] [place] #### B2GPM, B2GPA, B2GPG #### [address] Glucose [Mass/Vol] 109 mg/dL High 70-100 [facility] Comment on above: Performed By: #### C A19O, LUPUS #### The performing lab is in the report. #### NSEO #### [facility] #### HEMDF, LDH3, BMP3, MG3, PT, CEA2 #### [address] [facility] [address] #### B2GPM, B2GPA, B2GPG #### [address] Urea nitrogen [Mass/Vol] 18 mg/dL High 7-17 [facility] Comment on above: Performed By: #### C A19O, LUPUS #### The performing lab is in the report. #### NSEO #### [facility] #### HEMDF, LDH3, BMP3, MG3, PT, CEA2 #### [address] [place] [address] #### B2GPM, B2GPA, B2GPG #### [address] Creatinine [Mass/Vol] 0.82 mg/dL Normal 0.52-1.25 [facility] Comment on above: Performed By: #### C A19O, LUPUS #### The performing lab is in the report. #### NSEO #### [facility] #### HEMDF, LDH3, BMP3, MG3, PT, CEA2 #### [facility] [address] [place] [address] #### B2GPM, B2GPA, B2GPG #### [facility] [address] [place], [place] GFR/1.73 sq M.predicted among blacks MDRD (S/P/Bld) [Vol rate/Area] mL/min/{1.73_m2} Normal >60 [facility] Comment on above: Performed By: #### C A19O, LUPUS #### The performing lab is in the report. #### NSEO #### [facility] #### HEMDF, LDH3, BMP3, MG3, PT, CEA2 #### [facility] [address] [place] [address] #### B2GPM, B2GPA, B2GPG #### [address] GFR/1.73 sq M.predicted among non-blacks MDRD (S/P/Bld) [Vol rate/Area] 89.9 mL/min/{1.73_m2} Normal >60 [facility] Comment on above: Result Comment: KDIG [...] HEMDF, LDH3, BMP3, MG3, PT, CEA2 #### [place] [address] [place] [address] #### B2GPM, B2GPA, B2GPG #### [address] Chloride [Moles/Vol] 104 mmol/L Normal 98-107 [facility] Comment on above: Performed By: #### C Sena9O LUPUS #### The performing lab is in the report. #### NSEO #### [facility] #### HEMDF, LDH3, BMP3, MG3, PT, CEA2 #### [address] [place] [address] #### B2GPM, B2GPA, B2GPG #### [address] Potassium [Moles/Vol] 3.9 mmol/L Normal 3.5-5.1 [facility] Comment on above: Performed By: #### C Sena9O LUPUS #### The performing lab is in the report. #### NSEO #### [facility] #### HEMDF, LDH3, BMP3, MG3, PT, CEA2 #### [address] [facility] [address] #### B2GPM, B2GPA, B2GPG #### [address] Sodium [Moles/Vol] 142 mmol/L Normal 135-145 [facility] Comment on above: Performed By: #### C A19O, LUPUS #### The performing lab is in the report. #### NSEO #### [facility] #### HEMDF, LDH3, BMP3, MG3, PT, CEA2 #### [facility] [address] [place] [place] [address] #### B2GPM, B2GPA, B2GPG #### [facility] [address] [place] [address] Anion gap [Moles/Vol] 10 mmol/L 3 - 13 mmol/L [facility] Work Phone: Calcium [Mass/Vol] 9.6 mg/dL 8.4 - 10. 4 mg/dL [facility] Work Phone: Chloride [Moles/Vol] 104 mmol/L 98 - 10 7 mmol/L [facility] Work Phone: CO2 [Moles/Vol] 27 mmol/L 22 - 30 mmol/L [facility] Work Phone: Creatinine [Mass/Vol] 0.82 mg/dL 0.52 - 1.25 mg/dL [facility] Work Phone: EGFR IF NonAfrican Mauritian 89.9 mL/min >60 [facility] Work Phone: Comment on above: KDIGO [...] MDRD (S/P/Bld) [Vol rate/Area] mL/min/{1.73_m2} >60 mL/min [facility] Work Phone: Glucose [Mass/Vol] 109 mg/dL High 70 - 100 mg/dL [facility] Work Phone: [phone] Interpretation and review of laboratory results Abnormal [facility] Work Phone: 1) 222 Potassium [Moles/Vol] 3.9 mmol/L 3.5 - 5.1 mmol/L [facility] Work Phone: 1) 222 Sodium [Moles/Vol] 142 mmol/L 135 - 145 mmol/L [facility] Work Phone: 1) 222 Urea nitrogen (BldV) [Mass/Vol] 18 mg/dL High 7 - 17 mg/dL [facility] Work Phone: 1) 222 CBC with Auto Differentialon 10-23-2021 Absolute Baso # 0.1 10*3/uL 0.0 - 0.2 10*3/uL [facility] Work Phone: 1) 222 Absolute Neut # 6.6 10*3/uL 1.8 - 7.0 10*3/uL [facility] Work Phone: 1) 222 Basophils/100 WBC (Bld) 1.1 % 0.0 - 2.0 % [facility] Work Phone: 1) 222 Eosinophils (Bld) [#/Vol] 0.4 10*3/uL 0.0 - 0.5 10*3/uL [facility] Work Phone: 1) 222 Eosinophils/100 WBC (Bld) 3.9 % 1.0 - 6.0 % [facility] Work Phone: 1) 222 Granulocytes/100 WBC (Bld) 64.0 % 40.0 - 80.0 % [facility] Work Phone: 1) 222 Hematocrit (Bld) [Volume fraction] 35.1 % Low 40.0 - 52.0 % [facility] Work Phone: [phone] Hemoglobin (Bld) [Mass/Vol] 11.6 g/dL Low 13.0 - 18.0 g/dL [facility] Work Phone: [phone] Interpretation and review of laboratory results Abnormal [employer] Work Phone: 1) 222 Lymphocytes (Bld) [#/Vol] 2.6 10*3/uL 1.0 - 4.3 10*3/uL [facility] Work Phone: 1() 222 Lymphocytes/100 WBC (Bld) 25.0 % 20.0 - 40.0 % [facility] Work Phone: 1() 222 MCH (RBC) [Entitic mass] 28.4 pg 26.0 - 34.0 pg [facility] Work Phone: [phone] MCHC (RBC) [Mass/Vol] 33.1 % 32.0 - 36.0 % [employer] Work Phone: 1() MCV (RBC) [Entitic vol] 85.9 fL 80.0 - 98.0 fL [facility] Work Phone: 1() Monocytes (Bld) [#/Vol] 0.6 10*3/uL 0.0 - 0.8 10*3/uL [employer] Work Phone: 1() 222 Monocytes/100 WBC (Bld) 6.0 % 2.0 - 10.0 % [employer] Work Phone: 1) Platelet distribution width (Bld) [Ratio] 17.4 % High 11.5 - 14.5 % [employer] Work Phone: 1() Platelet mean volume (Bld) [Entitic vol] 8.1 fL 7.4 - 12.4 fL [employer] Work Phone: 1) Comment on above: MPV is a calculated measurement using platelet volume ratio. Platelets (Bld) [#/Vol] 450 10*3/uL High 140 - 440 10*3/uL [employer] Work Phone: 1() 222 RBC (Bld) [#/Vol] 4.08 10*6/uL Low 4.40 - 5.9 0 10*6/uL [employer] Work Phone: [phone] WBC (Bld) [#/Vol] 10.3 10*3/uL 3.6 - 10.7 10*3/uL [employer] Work Phone: [phone] Test Performed by [facility], [address] [place], [place], [place] [address] [facility] Work Phone: [phone] CEAon 10-23-2021 CEA 0.8 ng/mL 0.0 - 3.0 ng/mL [facility] Work Phone: Test Performed by [facility], [address] [place] [address] [facility] Work Phone: Carcinoembryonic Agon 2021 Carcinoembryonic Ag. 0.8 ng/mL Normal 0.0-3.0 [facility] Comment on above: Performed By: #### C A19O, LUPUS #### The performing lab is in the report. #### NSEO #### [facility] #### HEMDF, LDH3, BMP3, MG3, PT, CEA2 #### [facility] [address] [place] [address] #### B2GPM, B2GPA, B2GPG #### [address] Hemogram w/ Autodiffon 10-23 Abs Baso Cnt 0.1 10*3/uL Normal 0.0-0.2 [facility] Comment on above: Performed By: #### C A19O, LUPUS #### The performing lab is in the report. #### NSEO #### [facility] #### HEMDF, LDH3, BMP3, MG3, PT, CEA2 #### [facility] [address] [place] [id number] #### B2GPM, B2GPA, B2GPG #### [address] Abs Neutrophile Cnt 6.6 10*3/uL Normal 1.8-7.0 [facility] Comment on above: Performed By: #### C A19O, LUPUS #### The performing lab is in the report. #### NSEO #### [facility] #### HEMDF, LDH3, BMP3, MG3, PT, CEA2 #### [facility] [address] [place] [id number] #### B2GPM, B2GPA, B2GPG #### [address] Basophils/100 WBC (Bld) 1.1 % Normal 0.0-2.0 [facility] Comment on above: Performed By: #### C A19O, LUPUS #### The performing lab is in the report. #### NSEO #### [facility] #### HEMDF, LDH3, BMP3, MG3, PT, CEA2 #### [facility] [address] [place] [address] #### B2GPM, B2GPA, B2GPG #### [address] Eosinophils (Bld) [#/Vol] 0.4 10*3/uL Normal 0.0-0.5 [facility] Comment on above: Performed By: #### C A19O, LUPUS #### The performing lab is in the report. #### NSEO #### [facility] #### HEMDF, LDH3, BMP3, MG3, PT, CEA2 #### [facility] [address] [place], [place] #### B2GPM, B2GPA, B2GPG #### [address] Eosinophils/100 WBC (Bld) 3.9 % Normal 1.0-6.0 [facility] Comment on above: Performed By: #### C A19O, LUPUS #### The performing lab is in the report. #### NSEO #### [facility] #### HEMDF, LDH3, BMP3, MG3, PT, CEA2 #### [facility] [address] [place], [place] #### B2GPM, B2GPA, B2GPG #### [address] Erythrocyte distribution width (RBC) [Ratio] 17.4 % High 11.5-14.5 [facility] Comment on above: Performed By: #### C A19O, LUPUS #### The performing lab is in the report. #### NSEO #### [facility] #### HEMDF, LDH3, BMP3, MG3, PT, CEA2 #### [place] [address] [facility] [place] #### B2GPM, B2GPA, B2GPG #### [address] Granulocytes/100 WBC (Bld) 64.0 % Normal 40.0-80.0 [facility] Comment on above: Performed By: #### C A19O, LUPUS #### The performing lab is in the report. #### NSEO #### [facility] #### HEMDF, LDH3, BMP3, MG3, PT, CEA2 #### [address] [place], [place] #### B2GPM, B2GPA, B2GPG #### [address] Hematocrit (Bld) [Volume fraction] 35.1 % Low 40.0-52.0 [facility] Comment on above: Performed By: #### C A19O, LUPUS #### The performing lab is in the report. #### NSEO #### [facility] #### HEMDF, LDH3, BMP3, MG3, PT, CEA2 #### [address] [place], [place] #### B2GPM, B2GPA, B2GPG #### [address] Hemoglobin (Bld) [Mass/Vol] 11.6 g/dL Low 13.0-18.0 [facility] Comment on above: Performed By: #### C A19O, LUPUS #### The performing lab is in the report. #### NSEO #### [facility] #### HEMDF, LDH3, BMP3, MG3, PT, CEA2 #### [address] [facility] [place] [place] #### B2GPM, B2GPA, B2GPG #### [address] Lymphocytes (Bld) [#/Vol] 2.6 10*3/uL Normal 1.0-4.3 [facility] Comment on above: Performed By: #### C A19O, LUPUS #### The performing lab is in the report. #### NSEO #### [facility] #### HEMDF, LDH3, BMP3, MG3, PT, CEA2 #### [facility] [address] [place], [place] #### B2GPM, B2GPA, B2GPG #### [address] Lymphocytes/100 WBC (Bld) 25.0 % Normal 20.0-40.0 [facility] Comment on above: Performed By: #### C A19O, LUPUS #### The performing lab is in the report. #### NSEO #### [facility] #### HEMDF, LDH3, BMP3, MG3, PT, CEA2 #### [facility] [address] [place], [place] #### B2GPM, B2GPA, B2GPG #### [address] MCH (RBC) [Entitic mass] 28.4 pg Normal 26.0-34.0 [facility] Comment on above: Performed By: #### C A19O, LUPUS #### The performing lab is in the report. #### NSEO #### [facility] #### HEMDF, LDH3, BMP3, MG3, PT, CEA2 #### [facility] [address] [place], [place] #### B2GPM, B2GPA, B2GPG #### [address] MCHC 33.1 % Normal 32.0-36.0 [facility] Comment on above: Performed By: #### C A19O, LUPUS #### The performing lab is in the report. #### NSEO #### [facility] #### HEMDF, LDH3, BMP3, MG3, PT, CEA2 #### [facility] [address] [place] [address] #### B2GPM, B2GPA, B2GPG #### [address] MCV (RBC) [Entitic vol] 85.9 fL Normal 80.0-98.0 [facility] Comment on above: Performed By: #### C A19O, LUPUS #### The performing lab is in the report. #### NSEO #### [facility] #### HEMDF, LDH3, BMP3, MG3, PT, CEA2 #### [address] [place], [place] #### B2GPM, B2GPA, B2GPG #### [address] Monocytes (Bld) [#/Vol] 0.6 10*3/uL Normal 0.0-0.8 [facility] Comment on above: Performed By: #### C A19O, LUPUS #### The performing lab is in the report. #### NSEO #### [facility] #### HEMDF, LDH3, BMP3, MG3, PT, CEA2 #### [address] [place] #### B2GPM, B2GPA, B2GPG #### [address] Monocytes/100 WBC (Bld) 6.0 % Normal 2.0-10.0 [facility] Comment on above: Performed By: #### C A19O, LUPUS #### The performing lab is in the report. #### NSEO #### [facility] #### HEMDF, LDH3, BMP3, MG3, PT, CEA2 #### [address] [place] #### B2GPM, B2GPA, B2GPG #### [place] [address] [place], [place] Platelet mean volume (Bld) [Entitic vol] 8.1 fL Normal 7.4-12.4 [facility] Comment on above: Result Comment: MPV is a calculated measurement using platelet volume ratio. Performed By: #### C A19O, LUPUS #### The performing lab is in the report. #### NSEO #### [facility] #### HEMDF, LDH3, BMP3, MG3, PT, CEA2 #### [facility] [address] [place] #### B2GPM, B2GPA, B2GPG #### [address] Platelets (Bld) [#/Vol] 450 10*3/uL High 140-440 [facility] Comment on above: Performed By: #### C A19O, LUPUS #### The performing lab is in the report. #### NSEO #### [facility] #### HEMDF, LDH3, BMP3, MG3, PT, CEA2 #### [facility] [address] [place] [address] #### B2GPM, B2GPA, B2GPG #### [address] RBC (Bld) [#/Vol] 4.08 10*6/uL Low 4.40-5.90 [facility] Comment on above: Performed By: #### C A19O, LUPUS #### The performing lab is in the report. #### NSEO #### [facility] #### HEMDF, LDH3, BMP3, MG3, PT, CEA2 #### [facility] [address] [place] #### B2GPM, B2GPA, B2GPG #### [place] [address] [address] [place], [place] WBC (Bld) [#/Vol] 10.3 10*3/uL Normal 3.6-10.7 [facility] Comment on above: Performed By: #### C A19O, LUPUS #### The performing lab is in the report. #### NSEO #### [facility] #### HEMDF, LDH3, BMP3, MG3, PT, CEA2 #### [facility] [address] [place] [address] #### B2GPM, B2GPA, B2GPG #### [address] [address] LDHon 10-23-2021 LDH 136 U/L Normal 120-246 [facility] Comment on above: Performed By: #### C A19O, LUPUS #### The performing lab is in the report. #### NSEO #### [facility] #### HEMDF, LDH3, BMP3, MG3, PT, CEA2 #### [facility] [address] [place] [address] #### B2GPM, B2GPA, B2GPG #### [address] [address] Lactate Dehydrogenaseon - LD 136 U/L 120 - 246 U/L [facility] Work Phone: MRI ABDOMEN WO CONTRASTon Patient Name: ANDREW SIFUENTES Magnetic Resonance Imaging ACCESSION EXAM DATE/TIME PROCEDURE ORDERING PROVIDER [id number] 10/23/2021 11:08 EDT MRI Abdomen w/o Contrast WING SRIVASTAVA CPT code 31746 Reason For Exam (MRI Abdomen w/o Contrast) [...] Imaging ACCESSION EXAM DATE/TIME PROCEDURE ORDERING PROVIDER [id number] 10/23/2021 11:08 EDT MRI Abdomen w/o Contrast WING SRIVASTAVA CPT code 01412 Reason For Exam (MRI Abdomen w/o Contrast) [...] VLADIMIR Transcribed Date and Time: 10/23/2021 4:36 [facility] Work Phone: MRI ABDOMEN WO CONTRASTOrder ed By: Unknown Result on 10-23-2021 [facility] MRI Abdomen w/o Contraston 0 10-23-2021 MRI Abdomen w/o Contrast Patient Name: [id number] Resonance Imaging ACCESSION EXAM DATE/TIME PROCEDURE ORDERING PROVIDER [id number] 10/23/2021 11:08 EDT MRI Abdomen w/o Contrast DONOVAN SRIVASTAVAW CPT code 17724 Reason For Exam (MRI Abdomen w/o Contrast) [...] Transcribed Date and Time: 10/23/2021 4:36 Normal [facility] Magnesiumon 10-23-2021 Magnesium [Mass/Vol] 2.1 mg/dL Normal 1.6-2.3 [facility] Comment on above: Performed By: #### C A19O, LUPUS #### The performing lab is in the report. #### NSEO #### [facility] #### HEMDF, LDH3, BMP3, MG3, PT, CEA2 #### [facility] [address] [place] [address] #### B2GPM, B2GPA, B2GPG #### [address] Magnesium [Mass/Vol] 2.1 mg/dL 1.6 - 2 .3 mg/dL [facility] Work Phone: No Panel Informationon 10-23 Test Performed by [facility], [address] [place] [address] [facility] Work Phone: Prothrombin Timeon 2 INR 1.1 Normal 0.9-1.1 [facility] Comment on above: Result Comment: Harry [...] HEMDF, LDH3, BMP3, MG3, PT, CEA2 #### [facility] [address] [place] [address] #### B2GPM, B2GPA, B2GPG #### [address] [address] PT Coag (PPP) [Time] 12.2 s High 9.0-12.0 [facility] Comment on above: Result Comment: . Performed By: #### C A19O, LUPUS #### The performing lab is in the report. #### NSEO #### [facility] #### HEMDF, LDH3, BMP3, MG3, PT, CEA2 #### [facility] [address] [place] [address] #### B2GPM, B2GPA, B2GPG #### [place] [address] [facility] [place] [address] Protime-INRon 10-23-2021 INR Coag (Bld) [Relative time] 1.1 {INR} [facility] Work Phone: Comment on above: Recommended [...] Interpretation and review of laboratory results Abnormal [facility] Work Phone: PT Coag (PPP) [Time] 12.2 s High 9.0 - 12.0 s [facility] Work Phone: Comment on above: . Test Performed by [facility], [address] [place], [place] [id number] [place] [address] LAB [facility] Work Phone: Basic Metabolic Panelon 10-05 Calcium [Mass/Vol] 8.9 mg/dL Normal 8.4-10.4 [facility] Comment on above: Performed By: #### P T #### [facility] [address] [place] [address] Glucose [Mass/Vol] 110 mg/dL High 70-100 [facility] Comment on above: Performed By: #### P T #### [facility] [address] [place] [address] Urea nitrogen [Mass/Vol] 14 mg/dL Normal 7-17 [facility] Comment on above: Performed By: #### P T #### [facility] [address] [place] [address] Anion gap [Moles/Vol] 7 mmol/L Normal 3-13 [facility] Comment on above: Performed By: #### P T #### [facility] [address] [place] [address] CO2 [Moles/Vol] 26 mmol/L Normal 22-30 [facility] Comment on above: Performed By: #### P T #### [facility] [address] [place] [address] Creatinine [Mass/Vol] 0.71 mg/dL Normal 0.52-1.25 [facility] Comment on above: Performed By: #### P T #### [facility] [address] [place] [address] eGFR OTHER > 90.0 Normal >60 [facility] Comment on above: Result Comment: KDIG [...] secretion. Performed By: #### P T #### [facility] [address] [place] [address] GFR/1.73 sq M.predicted among blacks MDRD (S/P/Bld) [Vol rate/Area] mL/min/{1.73_m2} Normal >60 [facility] Comment on above: Performed By: #### P T #### [facility] [address] [place] [address] Potassium [Moles/Vol] 3.8 mmol/L Normal 3.5-5.1 [facility] Comment on above: Performed By: #### P T #### [facility] [address] [place] [address] Chloride [Moles/Vol] 106 mmol/L Normal 98-107 [facility] Comment on above: Performed By: #### P T #### [facility] [address] [place] [address] Sodium [Moles/Vol] 139 mmol/L Normal 135-145 [facility] Comment on above: Performed By: #### P T #### [facility] [address] [place] [address] Anion gap [Moles/Vol] 7 mmol/L 3 - 13 mmol/L [facility] Calcium [Mass/Vol] 8.9 mg/dL 8.4 - 10. 4 mg/dL [facility] Chloride [Moles/Vol] 106 mmol/L 98 - 10 7 mmol/L [facility] CO2 [Moles/Vol] 26 mmol/L 22 - 30 mmol/L [facility] Creatinine [Mass/Vol] 0.71 mg/dL 0.52 - 1.25 mg/dL [facility] EGFR IF NonAfrican Mauritian >90.0 >60 mL/min [facility] Comment on above: [...] 10*3/uL [facility] Test Performed by [facility], [address] [place], [place], [place] [address] [facility] Pelvis Wo Contras ton 10-22-2021 Patient Name: [id number] Computed Tomography ACCESSION EXAM DATE/TIME PROCEDURE ORDERING PROVIDER [id number] 10/22/2021 13:[address] Abdomen/Pelvis (No SRIVASTAVA, WING PO, No IV) CPT code 33427 Reason For Exam (CT Abdomen/Pelvis (No PO, [...] Transcribed Date and Time: 10/22/2021 2:37 [facility]rey Melton MD - 10/22/2021 Patient Name: ANDREW SIFUENTES Computed Tomography ACCESSION EXAM DATE/TIME PROCEDURE ORDERING PROVIDER [id number] 10/22/2021 13:[address] Abdomen/Pelvis (No SRIVASTAVAWING KESSLER PO, No IV) CPT code 04634 Reason For Exam (CT Abdomen/Pelvis (No PO, [...] Abdomen/Pelvis w/o Contrast Patient Name: ANDREW SIFUENTES [facility]#: [id number] Computed Tomography ACCESSION EXAM DATE/TIME PROCEDURE ORDERING PROVIDER [id number] 10/22/2021 13:[address] Abdomen/Pelvis (No SRIVASTAVA, WING PO, No IV) CPT code 84084 Reason For Exam (CT Abdomen/Pelvis (No PO, [...] Transcribed Date and Time: 10/22/2021 2:37 Normal [facility] Hemogram w/ Autodiffon 10-22 Abs Baso Cnt 0.1 10*3/uL Normal 0.0-0.2 [facility] Comment on above: Performed By: #### P T #### [facility] [address] [place] [address] Abs Neutrophile Cnt 6.0 10*3/uL Normal 1.8-7.0 [facility] Comment on above: Performed By: #### P T #### [facility] [address] [place] [address] Basophils/100 WBC (Bld) 1.0 % Normal 0.0-2.0 [facility] Comment on above: Performed By: #### P T #### [facility] [address] [place] [address] Eosinophils (Bld) [#/Vol] 0.3 10*3/uL Normal 0.0-0.5 [facility] Comment on above: Performed By: #### P T #### [facility] [address] [place] [address] Eosinophils/100 WBC (Bld) 3.0 % Normal 1.0-6.0 [facility] Comment on above: Performed By: #### P T #### [facility] [address] [place] [address] Erythrocyte distribution width (RBC) [Ratio] 17.1 % High 11.5-14.5 [facility] Comment on above: Performed By: #### P T #### [facility] [address] [place] [address] Granulocytes/100 WBC (Bld) 64.1 % Normal 40.0-80.0 [facility] Comment on above: Performed By: #### P T #### [facility] [address] [place] [address] Hematocrit (Bld) [Volume fraction] 33.4 % Low 40.0-52.0 [facility] Comment on above: Performed By: #### P T #### [facility] [address] [place] [address] Hemoglobin (Bld) [Mass/Vol] 10.9 g/dL Low 13.0-18.0 [facility] Comment on above: Performed By: #### P T #### [facility] [address] [place] [address] Lymphocytes (Bld) [#/Vol] 2.5 10*3/uL Normal 1.0-4.3 [facility] Comment on above: Performed By: #### P T #### [facility] [address] [place] [address] Lymphocytes/100 WBC (Bld) 26.3 % Normal 20.0-40.0 [facility] Comment on above: Performed By: #### P T #### [facility] [address] [place] [address] MCH (RBC) [Entitic mass] 28.2 pg Normal 26.0-34.0 [facility] Comment on above: Performed By: #### P T #### [facility] [address] [place] [address] MCHC 32.7 % Normal 32.0-36.0 [facility] Comment on above: Performed By: #### P T #### [facility] [address] [place] [address] MCV (RBC) [Entitic vol] 86.3 fL Normal 80.0-98.0 [facility] Comment on above: Performed By: #### P T #### [facility] [address] [place] [address] Monocytes (Bld) [#/Vol] 0.5 10*3/uL Normal 0.0-0.8 [facility] Comment on above: Performed By: #### P T #### [facility] [address] [place] [address] Monocytes/100 WBC (Bld) 5.6 % Normal 2.0-10.0 [facility] Comment on above: Performed By: #### P T #### [facility] [address] [place] [address] Platelet mean volume (Bld) [Entitic vol] 7.6 fL Normal 7.4-12.4 [facility] Comment on above: Result Comment: MPV is a calculated measurement using platelet volume ratio. Performed By: #### P T #### [place] [address] [place] [address] Platelets (Bld) [#/Vol] 369 10*3/uL Normal 140-440 [facility] Comment on above: Performed By: #### P T #### [facility] [address] [place] [address] RBC (Bld) [#/Vol] 3.87 10*6/uL Low 4.40-5.90 [facility] Comment on above: Performed By: #### P T #### [place] [address] [place] [address] WBC (Bld) [#/Vol] 9.4 10*3/uL Normal 3.6-10.7 [facility] Comment on above: Performed By: #### P T #### [facility] [address] [place] [address] Magnesiumon 10-22-2021 Magnesium [Mass/Vol] 2.0 mg/dL Normal 1.6-2.3 [facility] Comment on above: Performed By: #### P T #### [place] [address] [place] [address] Magnesium [Mass/Vol] 2.0 mg/dL 1.6 - 2 .3 mg/dL [facility] No Panel Informationon 10-22 Radiology Study observation (narrative) [facility] Work Phone: Test Performed by [facility], [address] [place], [place], [place] [address] [facility] Prothrombin Timeon INR 1.1 Normal 0.9-1.1 [facility] Comment on above: Result Comment: Harry [...] HEMDF, LDH3, BMP3, MG3, PT, CEA2 #### [facility] [address] [place] [address] #### B2GPM, B2GPA, B2GPG #### [address] [address] PT Coag (PPP) [Time] 11.8 s Normal 9.0-12.0 [facility] Comment on above: Result Comment: . Performed By: #### C A19O, LUPUS #### The performing lab is in the report. #### NSEO #### [facility] #### HEMDF, LDH3, BMP3, MG3, PT, CEA2 #### [address] [place] [address] #### B2GPM, B2GPA, B2GPG #### [address] [address] Protime-INRon 10-22-2021 INR Coag (Bld) [Relative time] 1.1 {INR} [facility] Work Phone: Comment on above: Recommended [...] [Time] 11.8 s 9.0 - 12.0 s [facility] Work Phone: Comment on above: . Test Performed by [facility]und [facility], [address] [place], [place] [id number] [place] [address] LAB [facility] Work Phone: VL Ankle Art Brachial Indice s Extremity Bilateralon 10-22-[address] [facility] Ankle Brachial Index Report Patient DO GurpreetB: 1950 Study 10/21/2021 Name: Andrew Gonzalez (71yrs) Date: Age: 71 Account: [id number] Gender: M Loc: 444W BP: Ordering Physician: Shruthi Malik Fulfillment Coordinator: Rody Cross RDMS, RVT Interpreting Physician: Carina Call Location: [facility] Indications: Foot wounds. Originally ordered as a full PVR. 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 Images were obtained using a [employer] vascular ultrasound machine. Arterial pressure indices: + [...] electronically signed by Carina Call 10/22/2021 13:21 [facility] Carina Call MD - 10/22/2021 [facility] Ankle Brachial Index Report Patient DO GurpreetB: 1950 Study 10/21/2021 Name: Andrew Gonzalez (71yrs) Date: Age: 71 Account: [id number] Gender: M Loc: 444W BP: Ordering Physician: Shruthi Malik Fulfillment Coordinator: Rody Cross RDMS, RVT Interpreting Physician: Carina Call Location: [facility] Indications: Foot wounds. Originally ordered as a full PVR. 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 Images were obtained using a [employer] vascular ultrasound machine. Arterial pressure indices: + [...] electronically signed by Carina Call 10/22/2021 13:21 [employer] Work Phone: [facility] Work Phone: Basic Metabolic Panelon - Calcium [Mass/Vol] 9.1 mg/dL Normal 8.4-10.4 [facility] Comment on above: Performed By: #### C OVAG #### [facility] [address] [place] [address] Anion gap [Moles/Vol] 6 mmol/L Normal 3-13 [facility] Comment on above: Performed By: #### C OVAG #### [facility] [address] [place] [address] CO2 [Moles/Vol] 29 mmol/L Normal 22-30 [facility] Comment on above: Performed By: #### C OVAG #### [facility] [address] [place] [address] Creatinine [Mass/Vol] 0.90 mg/dL Normal 0.52-1.25 [facility] Comment on above: Performed By: #### C OVAG #### [facility] [address] [place] [address] GFR/1.73 sq M.predicted among blacks MDRD (S/P/Bld) [Vol rate/Area] mL/min/{1.73_m2} Normal >60 [facility] Comment on above: Performed By: #### C OVAG #### [facility] [address] [place] [address] GFR/1.73 sq M.predicted among non-blacks MDRD (S/P/Bld) [Vol rate/Area] 86.6 mL/min/{1.73_m2} Normal >60 [facility] Comment on above: Result Comment: KDIG [...] secretion. Performed By: #### C OVAG #### [facility] [address] [place] [address] Glucose [Mass/Vol] 106 mg/dL High 70-100 [facility] Comment on above: Performed By: #### C OVAG #### [facility] [address] [place] [address] Urea nitrogen [Mass/Vol] 18 mg/dL High 7-17 [facility] Comment on above: Performed By: #### C OVAG #### [facility] [address] [place] [address] Chloride [Moles/Vol] 105 mmol/L Normal 98-107 [facility] Comment on above: Performed By: #### C OVAG #### [facility] [address] [place] [address] Potassium [Moles/Vol] 4.3 mmol/L Normal 3.5-5.1 [facility] Comment on above: Performed By: #### C OVAG #### [facility] [address] [place] [address] Sodium [Moles/Vol] 139 mmol/L Normal 135-145 [facility] Comment on above: Performed By: #### C OVAG #### [facility] [address] [place] [address] Anion gap [Moles/Vol] 6 mmol/L 3 - 13 mmol/L [facility] Calcium [Mass/Vol] 9.1 mg/dL 8.4 - 10. 4 mg/dL [facility] Chloride [Moles/Vol] 105 mmol/L 98 - 10 7 mmol/L [facility] CO2 [Moles/Vol] 29 mmol/L 22 - 30 mmol/L [facility] Creatinine [Mass/Vol] 0.9 mg/dL 0.52 - 1.25 mg/dL [facility] EGFR IF NonAfrican Mauritian 86.6 mL/min >60 [facility] Comment on above: KDIGO guidelines pro [...] 106 mg/dL High 70 - 100 mg/dL [facility] Interpretation and review of laboratory results Abnormal [facility] Potassium [Moles/Vol] 4.3 mmol/L 3.5 - 5.1 mmol/L [facility] Sodium [Moles/Vol] 139 mmol/L 135 - 145 mmol/L [facility] Urea nitrogen (BldV) [Mass/Vol] 18 mg/dL High 7 - 17 mg/dL [facility] Test Performed by [facility], [address] LAB [facility] C-Reactive Proteinon 022 CRP [Mass/Vol] 33.5 mg/L High 0.0-9.9 [facility] Comment on above: Result Comment: . Performed By: #### P T #### [facility] [address] [place] [address] CRP [Mass/Vol] 33.5 mg/L High 0.0 - 9.9 mg/L [facility] Comment on above: . Interpretation and review of laboratory results Abnormal [facility] Test Performed by [facility], [address] LAB [facility] CR Calcaneus 2+ Views Lefton 10-21-2021 CR Calcaneus 2+ Views Left Patient Name: ANDREW SIFUENTES Diagnostic Radiology ACCESSION EXAM DATE/TIME PROCEDURE ORDERING PROVIDER [id number] 10/21/2021 15:30 EDT CR Calcaneus 2+ Views [id number] -SHRUTHI MALIK Left CPT code 63561 Reason For Exam (CR Calcaneus 2+ Views [...] Transcribed Date and Time: 10/21/2021 4:33 Normal [facility] CR Chest 1 View Frontalon CR Chest 1 View Frontal Patient Name: ANDREW SIFUENTES Diagnostic Radiology ACCESSION EXAM DATE/TIME PROCEDURE ORDERING PROVIDER [id number] 10/21/2021 08:16 EDT CR Chest 1 View Frontal [id number] MAY BOGGS CPT code 28648 Reason For Exam (CR Chest 1 View [...] Transcribed Date and Time: 10/21/2021 8:33 Normal [facility] D-Dimer, Innovanceon 022 D-Dimer, Innovance 1.51 mg/L High <0.19-0.50 [facility] Comment on above: Result Comment: Inno saba D-Dimer values of <0.50 mg/L FEU can be used in combination with a pre-test probability model (e.g. Well's) to exclude pulmonary embolism (PE) disease, as well as an aid in the diagnosis of deep vein thrombosis (DVT). Performed By: #### P T #### [facility] [address] [place] [address] D-Dimer, Quantitativeon - D-Dimer, Quant 1.51 mg/L High <0.19 - 0.50 [facility] Comment on above: Innov[employer] D-Dimer va lues of <0.50 mg/L FEU can be used in combination with a pre-test probability model (e.g. Well's) to exclude pulmonary embolism (PE) disease, as well as an aid in the diagnosis of deep vein thrombosis (DVT). Interpretation and review of laboratory results Abnormal [facility] Test Performed by [facility], [address] [place], [place] [address] [facility] ED Provider Noteon 2 ED Provider Note [facility] ED EMERGENCY DEPARTMENT ENCOUNTER Pt Name: Andrew [...] (HCC) ? Kidney stone ? Neuropathy ? MOTORS AND CONTROLS TESTER (ventriculoperitoneal) shunt status SURGICAL HISTORY Past Surgical [...] LUNGS: Respirations (more content not included)... Normal [facility] Hemogramon 10-21-2021 Erythrocyte distribution width (RBC) [Ratio] 17.3 % High 11.5-14.5 [facility] Comment on above: Performed By: #### C OVAG #### [facility] [address] [place] [address] Hematocrit (Bld) [Volume fraction] 33.6 % Low 40.0-52.0 [facility] Comment on above: Performed By: #### C OVAG #### [facility] [address] [place] [address] Hemoglobin (Bld) [Mass/Vol] 10.9 g/dL Low 13.0-18.0 [facility] Comment on above: Performed By: #### C OVAG #### [facility] [address] [place] [address] MCH (RBC) [Entitic mass] 27.8 pg Normal 26.0-34.0 [facility] Comment on above: Performed By: #### C OVAG #### [facility] [address] [place] [address] MCHC 32.5 % Normal 32.0-36.0 [facility] Comment on above: Performed By: #### C OVAG #### [facility] [address] [facility] [address] MCV (RBC) [Entitic vol] 85.6 fL Normal 80.0-98.0 [facility] Comment on above: Performed By: #### C OVAG #### [facility] [address] [place] [address] Platelet mean volume (Bld) [Entitic vol] 7.7 fL Normal 7.4-12.4 [facility] Comment on above: Result Comment: MPV is a calculated measurement using platelet volume ratio. Performed By: #### C OVAG #### [facility] [address] [place] [address] Platelets (Bld) [#/Vol] 404 10*3/uL Normal 140-440 [facility] Comment on above: Performed By: #### C OVAG #### [facility] [address] [place] [address] RBC (Bld) [#/Vol] 3.93 10*6/uL Low 4.40-5.90 [facility] Comment on above: Performed By: #### C OVAG #### [facility] [address] [place] [address] WBC (Bld) [#/Vol] 11.6 10*3/uL High 3.6-10.7 [facility] Comment on above: Performed By: #### C OVAG #### [facility] [address] [place] [address] Hemogram (CBC)on 10-21-2021 Hematocrit (Bld) [Volume fraction] 33.6 % Low 40.0 - 52.0 % [facility] Hemoglobin (Bld) [Mass/Vol] 10.9 g/dL Low 13.0 - 18.0 g/dL [facility] Interpretation and review of laboratory results Abnormal [facility] MCH (RBC) [Entitic mass] 27.8 pg 26.0 - 34.0 pg [facility] MCHC (RBC) [Mass/Vol] 32.5 % 32.0 - 36.0 % [facility] MCV (RBC) [Entitic vol] 85.6 fL 80.0 - 98.0 fL [facility] Platelet distribution width (Bld) [Ratio] 17.3 % High 11.5 - 14.5 % [facility] Platelet mean volume (Bld) [Entitic vol] 7.7 fL 7.4 - 12.4 fL [facility] Comment on above: MPV is a calculated measurement using platelet volume ratio. Platelets (Bld) [#/Vol] 404 10*3/uL 140 - 440 10*3/uL [facility] RBC (Bld) [#/Vol] 3.93 10*6/uL Low 4.40 - 5.9 0 10*6/uL [facility] WBC (Bld) [#/Vol] 11.6 10*3/uL High 3.6 - 10.7 10*3/uL [facility] Test Performed by [facility], [address], [place], [place] [address] [facility] NM LUNG VENT/PERFUSION (VQ)o n 10-21-2021 Patient Name: ANDREW SIFUENTES Nuclear Medicine ACCESSION EXAM DATE/TIME PROCEDURE ORDERING PROVIDER [id number] 10/21/2021 07:55 EDT NM Pulmonary Perfusion [id number] MAY BOGGS w/ Vent Aerosol CPT code 59577 A9567 Reason For Exam (NM Pulmonary Perfusion [...] Date and Time: 10/21/2021 8:49 [facility] RAD Henry Harvey MD - 10/21/2021 Patient Name: ANDREW SIFUENTES Nuclear Medicine ACCESSION EXAM DATE/TIME PROCEDURE ORDERING PROVIDER [id number] 10/21/2021 07:55 EDT NM Pulmonary Perfusion [id number] MAY BOGGS w/ Vent Aerosol CPT code 94481 A9567 Reason For Exam (NM Pulmonary Perfusion [...] Medicine ACCESSION EXAM DATE/TIME PROCEDURE ORDERING PROVIDER [id number] 10/21/2021 07:55 EDT NM Pulmonary Perfusion [id number] MAY BOGGS w/ Vent Aerosol CPT code 35332 A9567 Reason For Exam (NM Pulmonary Perfusion [...] Transcribed Date and Time: 10/21/2021 8:49 Normal [facility] No Panel Informationon 10-21 Radiology Study observation (narrative) [facility] Work Phone: Prothrombin Timeon 2 INR 1.1 Normal 0.9-1.1 [facility] Comment on above: Result Comment: Harry [...] Infarction Performed By: #### C OVAG #### [facility] [address] [place] [address] PT Coag (PPP) [Time] 11.5 s Normal 9.0-12.0 [facility] Comment on above: Result Comment: . Performed By: #### C OVAG #### [facility] [address] [place] [address] Protime-INRon 10-21-2021 INR Coag (Bld) [Relative time] 1.1 {INR} [facility] Comment on above: Recommended Anticoag ulant [...] [Time] 11.5 s 9.0 - 12.0 s [facility] Comment on above: . Test Performed by [facility], [address] [place], [place], [place] [address] [place] [address] LAB [facility] Retic Count(%)on 10-21-2021 Retic Count(%) 1.6 Normal [facility] Comment on above: Result Comment: [place] orn < 5% Adults 0.5 - 1.5% Performed By: #### P T #### [facility] [address] [place] [address] Reticulocyteson 10-21-[address] Pct 1.6 [facility] Comment on above: [place] < 5% Adults 0.5 - 1.5% Test Performed by [facility], [address] [place], [place], [place] [id number] [place] [address] LAB [facility] Sed Rateon 10-21-2021 Sed Rate 63 mm/h High 0-10 [facility] Comment on above: Performed By: #### P T #### [facility] [address] [place] [address] Sedimentation Rateon 022 Interpretation and review of laboratory results Abnormal [facility] Sed Rate 63 mm/h High 0 - 10 mm/h [facility] Test Performed by [facility], [address] LAB [facility] VL CARMELLA Upr/L Extremity Art 1 -2 Levelson 10-21-2021 VL CARMELLA Upr/L Extremity Art 1-2 Levels Patient Name: ANDREW SIFUENTES Ultrasound ACCESSION EXAM DATE/TIME PROCEDURE ORDERING PROVIDER [id number] 10/21/2021 16:12 EDT VL Upr/L Extremity Art [id number] -SHRUTHI MALIK 1-2 Levels CPT code 60279 Reason For Exam (VL Upr/L Extremity Art 1-2 Levels) both lower legs CARMELLA for both feet wounds. Report [facility] Ankle Brachial Index Report Patient DO GurpreetB: 1950 Study 10/21/2021 Name: Andrew Gonzalez (71yrs) Date: Age: 71 Account: [id number] Gender: M Loc: 444W BP: Ordering Physician: Shruthi Malik Fulfillment Coordinator: Rody Cross RDMS RVT Interpreting Physician: Carina Call Location: [facility] Indications: Foot wounds. Originally ordered as a full PVR. 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 Images were obtained using a [employer] vascular ultrasound machine. Arterial pressure indices: + [...] CARINA HENNESSY Cardiovascular ACCESSION EXAM DATE/TIME PROCEDURE [id number] 10/21/2021 16:12 EDT VL Upr/L Extremity Art 1-2 Levels CPT code 50690 Reason For Exam (VL Upr/L Extremity Art 1-2 Levels) both lower legs CARMELLA for both feet wounds. Report [facility] Ankle Brachial Index Report Patient RADHA Sifuentes: 1950 Study 10/21/2021 Name: Andrew Gonzalez (71yrs) Date: Age: 71 Account: [id number] Cardiovascular Report Gender: M Loc: 444W BP: Ordering Physician: Shruthi Malik Fulfillment Coordinator: Rody Cross RDMS, RVT Interpreting Physician: Carina Call Location: [facility] Indications: Foot wounds. Originally ordered as a full PVR. Ordering DONKEY ENGINE FIRER/FIREMAN had to modify the order to ABIs [...] in th (more content not included)... Normal [facility] VL LOWER EXTREMITY BILATERAL VENOUS DUPLEXon 10-21-[address] [facility] Lower Extremity Venous Duplex Report Patient Gurpreet, : 1950 Study 10/21/2021 Name: Andrew Gonzalez (71yrs) Date: Age: 71 Account: [id number] Gender: M Loc: 444 BP: Ordering Physician: May Cash Fulfillment Coordinator: Rody Cross RDMS, RVT Interpreting Physician: Carina Call Location: [facility] Indications: Bilateral lower leg edema. CRITICAL RESULTS: [...] supine position. Images were obtained using a [employer] vascular ultrasound machine. Venous flow and imaging: [...] +-------- --------+ + (more content not included)... [facility] CARDIOLOG[facility] Carina Call MD - 10/21/2021 [facility] Lower Extremity Venous Duplex Report Patient DO GurpreetB: 1950 Study 10/21/2021 Name: Andrew Gonzalez (71yrs) Date: Age: 71 Account: [id number] Gender: M Loc: 444 BP: Ordering Physician: May Cash Fulfillment Coordinator: Rody Cross RDMS, RVT Interpreting Physician: Carina Call Location: [facility] Indications: Bilateral lower leg edema. CRITICAL RESULTS: [...] supine position. Images were obtained using a [employer] vascular ultrasound machine. Venous flow and imaging: [...] + + +----- (more content not included)... [employer] Work Phone: VL LOWER EXTREMITY BILATERAL VENOUS DUPLEXOrdered By: Carina Call on 10-21-2021 [facility] Work Phone: VL Venous Duplex US Lower Ex t Bilateralon 10-21-2021 VL Venous Duplex US Lower Ext Bilateral Patient Name: ANDREW SIFUENTES Ultrasound ACCESSION EXAM DATE/TIME PROCEDURE ORDERING PROVIDER [id number] 10/21/2021 09:53 EDT VL Venous Duplex US [id number] -MAY CASH Lower Ext Bilateral CPT code 79372 Reason For Exam (VL Venous Duplex US Lower Ext Bilateral) bilateral sqwelling redness Report [facility] Lower Extremity Venous Duplex Report Patient DO GurpreetB: 1950 Study 10/21/2021 Name: Andrew Gonzalez (71yrs) Date: Age: 71 Account: [id number] Gender: M Loc: 444 BP: Ordering Physician: May Cash Fulfillment Coordinator: Rody Cross RDMS, RVT Interpreting Physician: Carina Call Location: [facility] Indications: Bilateral lower leg edema. CRITICAL RESULTS: [...] supine position. Images were obtained using a [employer] vascular ultrasound machine. Venous flow and imaging: [...] +Naun gamino + + +-------- --------+ + + +R GSV +Patent + +Naun sible + + +-------- --------+ + + +L CFV +Patent + +Normal phasicity; + + + + +spontaneous; normal+ + + + +augmentation; + + + + +compressible + + +-------- --------+ + + (more content not included)... Normal [facility] XR CALCANEUS LEFT (MIN 2 VIE WS)on 10-21-2021 Patient Name: ANDREW SIFUENTES Diagnostic Radiology ACCESSION EXAM DATE/TIME PROCEDURE ORDERING PROVIDER [id number] 10/21/2021 15:30 EDT CR Calcaneus 2+ Views [id number] -SHRUTHI MALIK CPT code 79561 Reason For Exam (CR Calcaneus 2+ Views [...] J Transcribed Date and Time: 10/21/2021 4:33 [facility] Alan Wong MD - 10/21/2021 Patient Name: ANDREW SIFUENTES Diagnostic Radiology ACCESSION EXAM DATE/TIME PROCEDURE ORDERING PROVIDER [id number] 10/21/2021 15:30 EDT CR Calcaneus 2+ Views [id number] -SHRUTHI MALIK Left CPT code 50741 Reason For Exam (CR Calcaneus 2+ Views [...] Radiology ACCESSION EXAM DATE/TIME PROCEDURE ORDERING PROVIDER [id number] 10/21/2021 08:16 EDT CR Chest 1 View Frontal [id number] MAY BOGGS CPT code 82674 Reason For Exam (CR Chest 1 View [...] OSAMA Transcribed Date and Time: 10/21/2021 8:33 [facility] Chandler MD - 10/21/2021 Patient Name: ANDREW SIFUENTES Diagnostic Radiology ACCESSION EXAM DATE/TIME PROCEDURE ORDERING PROVIDER [id number] 10/21/2021 08:16 EDT CR Chest 1 View Frontal [id number] -MAY CASH CPT code 79400 Reason For Exam (CR Chest 1 View [...] OSAMA Transcribed Date and Time: 10/21/2021 8:33 [facility] Work Phone: XR Chest 1 VWOrdered By: Natalie Loyd on 10-21-2021 [facility] Work Phone: Basophil percentageon 2021 Chloride [Moles/Vol] 108 mmol/L 98-[address] [facility] Work Phone: Glucose [Mass/Vol] 93 mg/dL 74-106 [facility] Work Phone: Potassium [Moles/Vol] 3.9 mmol/L 3.5-5.1 [facility] Work Phone: [phone] Sodium [Moles/Vol] 140 mmol/L 136-145 [facility] Work Phone: WBC (Bld) [#/Vol] 8.7 10*3/uL 4.4-11.0 [facility] Work Phone: [phone] Blood erythrocytes count (nu mber/volume)on 10-20-2021 RBC (Bld) [#/Vol] 3.63 10*6/uL 4.6-6.2 [facility] Work Phone: Blood hemoglobin measurement (mass/volume)on 10-20-2021 Hemoglobin (Bld) [Mass/Vol] 10.1 g/dL 13.0-16.5 [facility] Work Phone: Blood platelet mean volumeon 10-20-2021 Platelet mean volume (Bld) [Entitic vol] 9.8 fL 6.2-12.0 [facility] Work Phone: Determination of erythrocyte mean corpuscular volume (MCV)on 10-20-2021 MCV (RBC) [Entitic vol] 90.1 fL 80-94 [facility] Work Phone: Hematocrit Auto (Bld) [Volum e fraction]on 10-20-2021 Hematocrit (Bld) [Volume fraction] 32.7 % 40-54 [facility] Work Phone: Laboratory - Chemistry and C hemistry - challengeon 10-20-2021 CO2 [Moles/Vol] 25.0 mmol/L 21.0-32.0 [facility] Work Phone: Urea nitrogen/Creatinine [Mass ratio] 17.4 mg/mg 10-20 [facility] Work Phone: Laboratory - Hematology and Cell countson 10-20-2021 Erythrocyte distribution width (RBC) [Entitic vol] 52.1 fL 35.1-43.9 [facility] Work Phone: Erythrocyte distribution width (RBC) [Ratio] 15.6 % 11.6-14.6 [facility] Work Phone: MCH (RBC) [Entitic mass] 27.8 pg 27.0-32.0 [facility] Work Phone: MCHC Auto (RBC) [Mass/Vol]on 10-20-2021 MCHC (RBC) [Mass/Vol] 30.9 g/dL 32-36 [facility] Work Phone: No Panel Informationon 10-20 Estimated GFR (MDRD) Amer 133 mL/min >60 [facility] Work Phone: Comment on above: GFR Calc Estimated GFR (MDRD) Non-Af Amer 110 mL/min >60 [facility] Work Phone: Comment on above: Non- GFR Calc Platelets bldon 10-20-2021 Platelets (Bld) [#/Vol] 404 10*3/uL 150-450 [facility] Work Phone: Serum or plasma calcium oral urement (mass/volume)on 10-20-2021 Calcium [Mass/Vol] 9.1 mg/dL 8.5-10.1 [facility] Work Phone: Serum or plasma creatinine m easurement (mass/volume)on 10-20-2021 Creatinine [Mass/Vol] 0.75 mg/dL 0.70-1.30 [facility] Work Phone: Comment on above: The validity of the calculated GFR & GFRAA in patients over 70 years has not been determined. Clinical correlation is essential. Serum or plasma urea nitroge n measurement (mass/volume)on 10-20-2021 Urea nitrogen [Mass/Vol] 13 mg/dL 7-18 [facility] Work Phone: Thin prep Papanicolaou smear with manual screeningon 10-20-2021 Thin prep Papanicolaou smear with manual screening 7 5-15 [facility] Work Phone: CNPNon 10-17-2021 CNPN Normal [facility] Absolute lymphocyte counton 09-19-2021 Lymphocytes Auto (Unsp spec) [#/Vol] 1.74 10*3/uL 0.83-4.51 [facility] Work Phone: Basophil percentageon 2021 Basophils/100 WBC (Bld) 0.6 % 0-1 [facility] Work Phone: Bilirubin [Mass/Vol] 0.30 mg/dL 0.20-1.00 [facility] Work Phone: Comment on above: For patients on eltr ombopag therapy, use of Dimension [place] TBIL is not recommended. Chloride [Moles/Vol] 105 mmol/L 98-107 [facility] Work Phone: [phone] Eosinophils/100 WBC (Bld) 3.5 % 0-5 [facility] Work Phone: [phone] Glucose [Mass/Vol] 91 mg/dL 74-106 [facility] Work Phone: Neutrophils (Bld) [#/Vol] 4.2 10*3/uL 2.0-7.7 [facility] Work Phone: [phone] Neutrophils/100 WBC (Bld) 62.6 % 47-70 [facility] Work Phone: [phone] Potassium [Moles/Vol] 3.8 mmol/L 3.5-5.1 [facility] Work Phone: [phone] Protein [Mass/Vol] 6.3 g/dL 6.4-8.2 [facility] Work Phone: Sodium [Moles/Vol] 139 mmol/L 136-145 [facility] Work Phone: [phone] WBC (Bld) [#/Vol] 6.6 10*3/uL 4.4-11.0 [facility] Work Phone: [phone] Blood erythrocytes count (nu mber/volume)on 09-19-2021 RBC (Bld) [#/Vol] 3.47 10*6/uL 4.6-6.2 [facility] Work Phone: Blood hemoglobin measurement (mass/volume)on 09-19-2021 Hemoglobin (Bld) [Mass/Vol] 10.2 g/dL 13.0-16.5 [facility] Work Phone: [phone] Blood lymphocytes/100 leukoc yteson 09-19-2021 Lymphocytes/100 WBC (Bld) 26.2 % 19-41 [facility] Work Phone: Blood monocytes/100 leukocyt eson 09-19-2021 Monocytes/100 WBC (Bld) 6.5 % 0-10 [facility] Work Phone: Blood platelet mean volumeon 09-19-2021 Platelet mean volume (Bld) [Entitic vol] 9.6 fL 6.2-12.0 [facility] Work Phone: Determination of erythrocyte mean corpuscular volume (MCV)on 09-19-2021 MCV (RBC) [Entitic vol] 94.8 fL 80-94 [facility] Work Phone: Hematocrit Auto (Bld) [Volum e fraction]on 09-19-2021 Hematocrit (Bld) [Volume fraction] 32.9 % 40-54 [facility] Work Phone: Laboratory - Chemistry and C hemistry - challengeon 09-19-2021 ALP [Catalytic activity/Vol] 109 U/L 45-117 [facility] Work Phone: ALT [Catalytic activity/Vol] 23 U/L 16-61 [facility] Work Phone: CO2 [Moles/Vol] 26.0 mmol/L 21.0-32.0 [facility] Work Phone: Globulin (S) [Mass/Vol] 3.5 g/dL 2.2-4.2 [facility] Work Phone: Urea nitrogen/Creatinine [Mass ratio] 15.3 mg/mg 10-20 [facility] Work Phone: Laboratory - Hematology and Cell countson 09-19-2021 Erythrocyte distribution width (RBC) [Entitic vol] 59.4 fL 35.1-43.9 [facility] Work Phone: Erythrocyte distribution width (RBC) [Ratio] 17.1 % 11.6-14.6 [facility] Work Phone: Immature granulocytes/100 WBC (Bld) 0.600 % 0.0-0.9 [facility] Work Phone: Comment on above: IG% - Immature Granu locytes (promyelocytes, myelocytes and metamyelocytes) > 1% indicates that a LEFT SHIFT is Present. MCH (RBC) [Entitic mass] 29.4 pg 27.0-32.0 [facility] Work Phone: Nucleated RBC/100 WBC (Bld) [Ratio] 0 % 0-5 [facility] Work Phone: MCHC Auto (RBC) [Mass/Vol]on 09-19-2021 MCHC (RBC) [Mass/Vol] 31.0 g/dL 32-36 [facility] Work Phone: No Panel Informationon 09-19 Estimated GFR (MDRD) Amer 175 mL/min >60 [facility] Work Phone: Comment on above: GFR Calc Estimated GFR (MDRD) Non-Af Amer 145 mL/min >60 [facility] Work Phone: Comment on above: Non- GFR Calc Platelets bldon 09-19-2021 Platelets (Bld) [#/Vol] 342 10*3/uL 150-450 [facility] Work Phone: Serum or plasma albumin oral urement (mass/volume)on 09-19-2021 Albumin [Mass/Vol] 2.8 g/dL 3.2-5.0 [facility] Work Phone: Serum or plasma albumin/glob ulin mass ratioon 09-19-2021 Albumin/Globulin [Mass ratio] 0.8 {ratio} 0.9-2.4 [facility] Work Phone: Serum or plasma calcium oral urement (mass/volume)on 09-19-2021 Calcium [Mass/Vol] 9.0 mg/dL 8.5-10.1 [facility] Work Phone: Serum or plasma creatinine m easurement (mass/volume)on 09-19-2021 Creatinine [Mass/Vol] 0.59 mg/dL 0.70-1.30 [facility] Work Phone: Comment on above: The validity of the calculated GFR & GFRAA in patients over 70 years has not been determined. Clinical correlation is essential. Serum or plasma urea nitroge n measurement (mass/volume)on 09-19-2021 Urea nitrogen [Mass/Vol] 9 mg/dL 7-18 [facility] Work Phone: Thin prep Papanicolaou smear with manual screeningon 09-19-2021 Thin prep Papanicolaou smear with manual screening 12 U/L 15-37 [facility] Work Phone: Thin prep Papanicolaou smear with manual screening 8 5-15 [facility] Work Phone: OPERATIVE NOon 08-22-2021 OPERATIVE NO Normal [facility] Basic metabolic 2000 panelon 08-19-2021 Anion gap [Moles/Vol] 10 mmol/L Normal 9-18 [facility] Comment on above: Order Comment: Speci men Type: BLOOD SPECIMENOrdering Facility: [facility] Address: [address] [place] [address] Performed By: #### 2 4321-2 ####[facility] LABORATORYCLIA [id number] [place] [address] [place] [facility] Calcium [Mass/Vol] 8.6 mg/dL Normal 8.5-10.2 [facility] Comment on above: Order Comment: Speci men Type: BLOOD SPECIMENOrdering Facility: [facility] Address: [address] [place] [address] Performed By: #### 2 4321-2 ####[facility] LABORATORYCLIA [id number] [place] [address] [place] Chloride [Moles/Vol] 99 mmol/L Normal 97-105 [facility] Comment on above: Order Comment: Speci men Type: BLOOD SPECIMENOrdering Facility: [facility] Address: [address] [address] Performed By: #### 2 4321-2 ####[facility] LABORATORYCLIA [id number] [place] [address] [place] CO2 [Moles/Vol] 29 mmol/L Normal 22-30 [facility] Comment on above: Order Comment: Speci men Type: BLOOD SPECIMENOrdering Facility: [facility] Address: [address] [address] Performed By: #### 2 4321-2 ####[facility] LABORATORYCLIA [id number] [address] [place] Creatinine [Mass/Vol] 0.58 mg/dL Low 0.73-1.22 [facility] Comment on above: Order Comment: Speci men Type: BLOOD SPECIMENOrdering Facility: [facility] Address: [address] [place] [address] Performed By: #### 2 4321-2 ####[facility] LABORATORYCLIA [id number] [address] ESTIMATED GLOMERULAR FILTRATION RATE 106 mL/min/1.73m??? Normal >=60 [facility] Comment on above: Order Comment: Speci men Type: BLOOD SPECIMENOrdering Facility: [facility] [facility] Address: [address] [place] [address] Result Comment: Luzmaria mated Glomerular Filtration Rate [...] By: #### 2 4321-2 ####[facility] LABORATORYCLIA [id number] [address] [place] Glucose [Mass/Vol] 101 mg/dL High 74-99 [facility] Comment on above: Order Comment: Speci men Type: BLOOD SPECIMENOrdering Facility: [facility] Address: [address] [address] Result Comment: The [place] Diabetes Association (ADA) provides guidance for cutoff [...] Standards of Medical Care in Diabetes 2016, [place] [employer]. Diabetes Care. 2016.39(Suppl 1). Performed By: #### 2 4321-2 ####[facility] LABORATORYCLIA [id number] [place] [address] [place] Potassium [Moles/Vol] 3.5 mmol/L Low 3.7-5.1 [facility] Comment on above: Order Comment: Shira feldman Type: BLOOD SPECIMENOrdering Facility: [facility] Address: [address] [place] [address] Performed By: #### 2 1-2 ####[facility] LABORATORYCLIA [id number] [place] [address] [place] Sodium [Moles/Vol] 138 mmol/L Normal 136-144 [facility] Comment on above: Order Comment: Shira feldman Type: BLOOD SPECIMENOrdering Facility: [facility] Address: [address] [place] [address] Performed By: #### 2 4321-2 ####[facility] LABORATORYCLIA [id number] [place] [address] [place] Urea nitrogen [Mass/Vol] 11 mg/dL Normal 9-24 [facility] Comment on above: Order Comment: Johni francia Type: BLOOD SPECIMENOrdering Facility: [facility] Address: [address] [place] [address] Performed By: #### 2 4321-2 ####[facility]ORATORYCLIA [id number] [place] [address] [place] CASE MANAGEMon 08-19-2021 CASE MANAGEM Normal [facility] CBC W Auto Differential pane l (Bld)on 08-19-2021 Basophils (Bld) [#/Vol] 0.03 10*3/uL Normal <0.11 [facility] Comment on above: Order Comment: Speci men Type: BLOOD SPECIMENOrdering Facility: [facility] Address: [address] [place] [address] Performed By: #### 5 7021-8 ####[facility]ATORYCLIA [id number] [address] [place] Basophils/100 WBC (Bld) 0.4 % Normal [facility] Comment on above: Order Comment: Speci men Type: BLOOD SPECIMENOrdering Facility: [facility] Address: [address] [place] [address] Performed By: #### 5 7021-8 ####[facility]ATORYCLIA [id number] [address] [place] Differential cell count method Nom (Bld) Auto Normal [facility] Comment on above: Order Comment: Speci men Type: BLOOD SPECIMENOrdering Facility: [facility] Address: [address] [place] [address] Performed By: #### 5 7021-8 ####[facility]ATORYCLIA [id number] [address] [place] Eosinophils (Bld) [#/Vol] 0.24 10*3/uL Normal <0.46 [facility] Comment on above: Order Comment: Speci men Type: BLOOD SPECIMENOrdering Facility: [facility] Address: [address] [place] [address] Performed By: #### 5 7021-8 ####[facility]ATORYCLIA [id number] [address] [place] Eosinophils/100 WBC (Bld) 3.1 % Normal [facility] Comment on above: Order Comment: Speci men Type: BLOOD SPECIMENOrdering Facility: [facility] Address: [address] [place] [address] Performed By: #### 5 7021-8 ####[facility]ATORYCLIA [id number] [address] Erythrocyte distribution width (RBC) [Ratio] 17.5 % High 11.5-15.0 [facility] Comment on above: Order Comment: Speci men Type: BLOOD SPECIMENOrdering Facility: [facility] Address: [address] [place] [address] Performed By: #### 5 7021-8 ####[facility] LABORATORYCLIA [id number] [address] Hematocrit (Bld) [Volume fraction] 30.2 % Low 39.0-51.0 [facility] Comment on above: Order Comment: Speci men Type: BLOOD SPECIMENOrdering Facility: [facility] Address: [address] [place] [address] Performed By: #### 5 7021-8 ####[facility]ORATORYCLIA [id number] [address] STATES [facility] Hemoglobin (Bld) [Mass/Vol] 9.6 g/dL Low 13.0-17.0 [facility] Comment on above: Order Comment: Speci men Type: BLOOD SPECIMENOrdering Facility: [facility] Address: [address] [place] [address] Performed By: #### 5 7021-8 ####[facility]ORATORYCLIA [id number] [address] IMMATURE GRAN % 0.4 % Normal [facility] Comment on above: Order Comment: Speci men Type: BLOOD SPECIMENOrdering Facility: [facility] Address: [address] [place] [address] Performed By: #### 5 7021-8 ####[facility]ORATORYCLIA [id number] [address] IMMATURE GRAN ABS 0.03 k/uL Normal <0.10 [facility] Comment on above: Order Comment: Speci men Type: BLOOD SPECIMENOrdering Facility: [facility] Address: [address] [place], [place] [address] Performed By: #### 5 7021-8 ####[facility] LABORATORYCLIA [id number] [address] STATES OF [facility] Lymphocytes (Bld) [#/Vol] 1.71 10*3/uL Normal 1.00-4.00 [facility] Comment on above: Order Comment: Speci men Type: BLOOD SPECIMENOrdering Facility: [facility] Address: [address] [place] [address] Performed By: #### 5 7021-8 ####[facility]ORATORYCLIA [id number] [address] Lymphocytes/100 WBC (Bld) 22.2 % Normal [facility] Comment on above: Order Comment: Speci men Type: BLOOD SPECIMENOrdering Facility: [facility] Address: [address] [place] [address] Performed By: #### 5 7021-8 ####[facility]ORATORYCLIA [id number] [address] STATES OF [facility] MCH (RBC) [Entitic mass] 29.4 pg Normal 26.0-34.0 [facility] Comment on above: Order Comment: Speci men Type: BLOOD SPECIMENOrdering Facility: [facility] Address: [address] [place] [address] Performed By: #### 5 7021-8 ####[facility]ORATORYCLIA [id number] [address] [place] MCHC (RBC) [Mass/Vol] 31.8 g/dL Normal 30.5-36.0 [facility] Comment on above: Order Comment: Speci men Type: BLOOD SPECIMENOrdering Facility: [facility] Address: [address] [place] [address] Performed By: #### 5 7021-8 ####[facility]ORATORYCLIA [id number] [address] [place] MCV (RBC) [Entitic vol] 92.6 fL Normal 80.0-100.0 [facility] Comment on above: Order Comment: Speci men Type: BLOOD SPECIMENOrdering Facility: [facility] Address: [address] [place] [address] Performed By: #### 5 7021-8 ####[facility]ATORYCLIA [id number] [place] [address] [place] Monocytes (Bld) [#/Vol] 0.50 10*3/uL Normal <0.87 [facility] Comment on above: Order Comment: Speci men Type: BLOOD SPECIMENOrdering Facility: [facility] Address: [address] [place] [address] Performed By: #### 5 7021-8 ####[facility]ORATORYCLIA [id number] [address] [place] Monocytes/100 WBC (Bld) 6.5 % Normal [facility] Comment on above: Order Comment: Speci men Type: BLOOD SPECIMENOrdering Facility: [facility] Address: [address] [place] [address] Performed By: #### 5 7021-8 ####[facility]ORATORYCLIA [id number] [place] [address] [place] Neutrophils (Bld) [#/Vol] 5.20 10*3/uL Normal 1.45-7.50 [facility] Comment on above: Order Comment: Speci men Type: BLOOD SPECIMENOrdering Facility: [facility] Address: [address] [place] [address] Performed By: #### 5 7021-8 ####[facility]ATORYCLIA [id number] [place] [address] [place] Neutrophils/100 WBC (Bld) 67.4 % Normal [facility] Comment on above: Order Comment: Speci men Type: BLOOD SPECIMENOrdering Facility: [facility] Address: [address] [place] [address] Performed By: #### 5 7021-8 ####[facility]ATORYCLIA [id number] [address] [place] Nucleated RBC (Bld) [#/Vol] 10*3/uL Normal <0.01 [facility] Comment on above: Order Comment: Speci men Type: BLOOD SPECIMENOrdering Facility: [facility] Address: [address] [place] [address] Performed By: #### 5 7021-8 ####[facility]ORATORYCLIA [id number] [address] [place] Nucleated RBC/100 WBC (Bld) [Ratio] 0.0 /100 WBC Normal [facility] Comment on above: Order Comment: Speci men Type: BLOOD SPECIMENOrdering Facility: [facility] Address: [address] [place] [address] Performed By: #### 5 7021-8 ####[facility]ORATORYCLIA [id number] [address] [place] Platelet mean volume (Bld) [Entitic vol] 8.9 fL Low 9.0-12.7 [facility] Comment on above: Order Comment: Speci men Type: BLOOD SPECIMENOrdering Facility: [facility] Address: [address] [place] [address] Performed By: #### 5 7021-8 ####[facility]ORATORYCLIA [id number] [address] [place] Platelets (Bld) [#/Vol] 408 10*3/uL High 150-400 [facility] Comment on above: Order Comment: Speci men Type: BLOOD SPECIMENOrdering Facility: [facility] Address: [address] [place] [address] Performed By: #### 5 7021-8 ####[facility]ORATORYCLIA [id number] [address] [place] RBC (Bld) [#/Vol] 3.26 10*6/uL Low 4.20-6.00 [facility] Comment on above: Order Comment: Speci men Type: BLOOD SPECIMENOrdering Facility: [facility] Address: [address] [place] [address] Performed By: #### 5 7021-8 ####[facility]ORATORYCLIA [id number] [place] [address] [place] WBC (Bld) [#/Vol] 7.71 10*3/uL Normal 3.70-11.00 [facility] Comment on above: Order Comment: Speci men Type: BLOOD SPECIMENOrdering Facility: [facility] Address: [address] [place] [address] Performed By: #### 5 7021-8 ####[facility]ORATORYCLIA [id number] [address] [place] CNDSon 08-19-2021 CNDS Normal [facility] CONSULT PROGon 08-19-2021 CONSULT PROG Normal [facility] THERAPY NTon 08-19-2021 THERAPY NT Normal [facility] Basic metabolic 2000 panelon 08-18-2021 Anion gap [Moles/Vol] 11 mmol/L Normal 9-18 [facility] Comment on above: Order Comment: Speci men Type: BLOOD SPECIMENOrdering Facility: [facility] Address: [address] [place] [address] Performed By: #### 2 4321-2 ####[facility]ORATORYCLIA [id number] [address] [place] Calcium [Mass/Vol] 8.6 mg/dL Normal 8.5-10.2 [facility] Comment on above: Order Comment: Speci men Type: BLOOD SPECIMENOrdering Facility: [facility] Address: [address] [place] [address] Performed By: #### 2 4321-2 ####[facility]ORATORYCLIA [id number] [place] [address] [place] Chloride [Moles/Vol] 98 mmol/L Normal 97-105 [facility] Comment on above: Order Comment: Speci men Type: BLOOD SPECIMENOrdering Facility: [facility] Address: [address] [place], [place] [address] Performed By: #### 2 4321-2 ####[facility]ORATORYCLIA [id number] [address] [place] CO2 [Moles/Vol] 28 mmol/L Normal 22-30 [facility] Comment on above: Order Comment: Speci men Type: BLOOD SPECIMENOrdering Facility: [facility] Address: [address] [place] [address] Performed By: #### 2 4321-2 ####[facility]ORATORYCLIA [id number] [address] [place] Creatinine [Mass/Vol] 0.56 mg/dL Low 0.73-1.22 [facility] Comment on above: Order Comment: Speci men Type: BLOOD SPECIMENOrdering Facility: [facility] Address: [address] [place] [address] Performed By: #### 2 4321-2 ####[facility] [id number] [address] ESTIMATED GLOMERULAR FILTRATION RATE 107 mL/min/1.73m??? Normal >=60 [facility] Comment on above: Order Comment: Speci men Type: BLOOD SPECIMENOrdering Facility: [facility] Address: [address] [place] [address] Result Comment: Luzmaria mated Glomerular Filtration Rate [...] By: #### 2 4321-2 ####[facility]ORATORYCLIA [id number] [address] Glucose [Mass/Vol] 113 mg/dL High 74-99 [facility] Comment on above: Order Comment: Speci men Type: BLOOD SPECIMENOrdering Facility: [facility] Address: [address] [address] Result Comment: The [place] Diabetes Association (ADA) provides guidance for cutoff [...] Standards of Medical Care in Diabetes 2016, [place] [employer]. Diabetes Care. 2016.39(Suppl 1). Performed By: #### 2 4321-2 ####[facility]ORATORYCLIA [id number] [place] [address] [place] Potassium [Moles/Vol] 3.5 mmol/L Low 3.7-5.1 [facility] Comment on above: Order Comment: Speci men Type: BLOOD SPECIMENOrdering Facility: [facility] Address: [address] [address] Performed By: #### 2 1-2 ####[facility]ORATORYCLIA [id number] [place] [address] [place] Sodium [Moles/Vol] 137 mmol/L Normal 136-144 [facility] Comment on above: Order Comment: Speci men Type: BLOOD SPECIMENOrdering Facility: [facility] Address: [address] [address] Performed By: #### 2 1-2 ####[facility]ORATORYCLIA [id number] [place] [address] [place] Urea nitrogen [Mass/Vol] 10 mg/dL Normal 9-24 [facility] Comment on above: Order Comment: Speci men Type: BLOOD SPECIMENOrdering Facility: [facility] Address: [address] [address] Performed By: #### 2 4321-2 ####[facility]ORATORYCLIA [id number] [place] [address] [place] CBC W Auto Differential pane l (Bld)on 08-18-2021 Basophils (Bld) [#/Vol] 10*3/uL Normal <0.11 [facility] Comment on above: Order Comment: Speci men Type: BLOOD SPECIMENOrdering Facility: [facility] Address: [address] [place] [address] Performed By: #### 5 7021-8 ####[facility]ORATORYCLIA [id number] [address] [place] Basophils/100 WBC (Bld) 0.3 % Normal [facility] Comment on above: Order Comment: Speci men Type: BLOOD SPECIMENOrdering Facility: [facility] Address: [address] [place] [address] Performed By: #### 5 7021-8 ####[facility]ATORYCLIA [id number] [address] Differential cell count method Nom (Bld) Auto Normal [facility] Comment on above: Order Comment: Speci men Type: BLOOD SPECIMENOrdering Facility: [facility] Address: [address] [place] [address] Performed By: #### 5 7021-8 ####[facility]ATORYCLIA [id number] [address] [place] Eosinophils (Bld) [#/Vol] 0.37 10*3/uL Normal <0.46 [facility] Comment on above: Order Comment: Speci men Type: BLOOD SPECIMENOrdering Facility: [facility] Address: [address] [place] [address] Performed By: #### 5 7021-8 ####[facility]ORYCLIA [id number] [address] Eosinophils/100 WBC (Bld) 4.8 % Normal [facility] Comment on above: Order Comment: Speci men Type: BLOOD SPECIMENOrdering Facility: [facility] Address: [address] [address] Performed By: #### 5 7021-8 ####[facility]ORYCLIA [id number] [address] Erythrocyte distribution width (RBC) [Ratio] 17.5 % High 11.5-15.0 [facility] Comment on above: Order Comment: Speci men Type: BLOOD SPECIMENOrdering Facility: [facility] Address: [address] [place] [address] Performed By: #### 5 7021-8 ####[facility]ATORYCLIA [id number] [address] Hematocrit (Bld) [Volume fraction] 30.2 % Low 39.0-51.0 [facility] Comment on above: Order Comment: Speci men Type: BLOOD SPECIMENOrdering Facility: [facility] Address: [address] [place] [address] Performed By: #### 5 7021-8 ####[facility]ATORYCLIA [id number] [address] Hemoglobin (Bld) [Mass/Vol] 9.5 g/dL Low 13.0-17.0 [facility] Comment on above: Order Comment: Speci men Type: BLOOD SPECIMENOrdering Facility: [facility] Address: [address] [place] [address] Performed By: #### 5 7021-8 ####[facility]ORYCLIA [id number] [address] IMMATURE GRAN % 0.4 % Normal [facility] Comment on above: Order Comment: Speci men Type: BLOOD SPECIMENOrdering Facility: [facility] Address: [address] [place] [address] Performed By: #### 5 7021-8 ####[facility]ATORYCLIA [id number] [address] IMMATURE GRAN ABS 0.03 k/uL Normal <0.10 [facility] Comment on above: Order Comment: Speci men Type: BLOOD SPECIMENOrdering Facility: [facility] Address: [address] [place] [address] Performed By: #### 5 7021-8 ####[facility]ORYCLIA [id number] [address] Lymphocytes (Bld) [#/Vol] 1.85 10*3/uL Normal 1.00-4.00 [facility] Comment on above: Order Comment: Speci men Type: BLOOD SPECIMENOrdering Facility: [facility] Address: [address] [place] [address] Performed By: #### 5 7021-8 ####[facility]ORYCLIA [id number] [address] Lymphocytes/100 WBC (Bld) 23.8 % Normal [facility] Comment on above: Order Comment: Speci men Type: BLOOD SPECIMENOrdering Facility: [facility] Address: [address] [place] [address] Performed By: #### 5 7021-8 ####[facility]ATORYCLIA [id number] [address] MCH (RBC) [Entitic mass] 29.5 pg Normal 26.0-34.0 [facility] Comment on above: Order Comment: Speci men Type: BLOOD SPECIMENOrdering Facility: [facility] Address: [address] [place] [address] Performed By: #### 5 7021-8 ####[facility]ORATORYCLIA [id number] [address] STATES OF [facility] MCHC (RBC) [Mass/Vol] 31.5 g/dL Normal 30.5-36.0 [facility] Comment on above: Order Comment: Speci men Type: BLOOD SPECIMENOrdering Facility: [facility] Address: [address] [place] [address] Performed By: #### 5 7021-8 ####[facility]ORATORYCLIA [id number] [address] [place] MCV (RBC) [Entitic vol] 93.8 fL Normal 80.0-100.0 [facility] Comment on above: Order Comment: Speci men Type: BLOOD SPECIMENOrdering Facility: [facility] Address: [address] [place] [address] Performed By: #### 5 7021-8 ####[facility]ORATORYCLIA [id number] [place] [address] [place] Monocytes (Bld) [#/Vol] 0.49 10*3/uL Normal <0.87 [facility] Comment on above: Order Comment: Speci men Type: BLOOD SPECIMENOrdering Facility: [facility] Address: [address] [place] [address] Performed By: #### 5 7021-8 ####[facility]ATORYCLIA [id number] [address] [place] Monocytes/100 WBC (Bld) 6.3 % Normal [facility] Comment on above: Order Comment: Speci men Type: BLOOD SPECIMENOrdering Facility: [facility] Address: [address] [place] [address] Performed By: #### 5 7021-8 ####[facility]ORATORYCLIA [id number] [address] [place] Neutrophils (Bld) [#/Vol] 5.00 10*3/uL Normal 1.45-7.50 [facility] Comment on above: Order Comment: Speci men Type: BLOOD SPECIMENOrdering Facility: [facility] Address: [address] [place] [address] Performed By: #### 5 7021-8 ####[facility]ORATORYCLIA [id number] [address] [place] Neutrophils/100 WBC (Bld) 64.4 % Normal [facility] Comment on above: Order Comment: Speci men Type: BLOOD SPECIMENOrdering Facility: [facility] Address: [address] [place] [address] Performed By: #### 5 7021-8 ####[facility]ORYCLIA [id number] [address] [place] Nucleated RBC (Bld) [#/Vol] 10*3/uL Normal <0.01 [facility] Comment on above: Order Comment: Speci men Type: BLOOD SPECIMENOrdering Facility: [facility] Address: [address] [place] [address] Performed By: #### 5 7021-8 ####[facility] LABORATORYCLIA [id number] [address] [place] Nucleated RBC/100 WBC (Bld) [Ratio] 0.0 /100 WBC Normal [facility] Comment on above: Order Comment: Speci men Type: BLOOD SPECIMENOrdering Facility: [facility] Address: [address] [place] [address] Performed By: #### 5 7021-8 ####[facility] LABORATORYCLIA [id number] [address] [place] Platelet mean volume (Bld) [Entitic vol] 9.1 fL Normal 9.0-12.7 [facility] Comment on above: Order Comment: Speci men Type: BLOOD SPECIMENOrdering Facility: [facility] Address: [address] [place] [address] Performed By: #### 5 7021-8 ####[facility] LABORATORYCLIA [id number] [address] [place] Platelets (Bld) [#/Vol] 391 10*3/uL Normal 150-400 [facility] Comment on above: Order Comment: Speci men Type: BLOOD SPECIMENOrdering Facility: [facility] Address: [address] [place], [place] [address] Performed By: #### 5 7021-8 ####[facility] LABORATORYCLIA [id number] [address] [place] RBC (Bld) [#/Vol] 3.22 10*6/uL Low 4.20-6.00 [facility] Comment on above: Order Comment: Speci men Type: BLOOD SPECIMENOrdering Facility: [facility] Address: [address] [place] [address] Performed By: #### 5 7021-8 ####[facility] LABORATORYCLIA [id number] [place] [address] [place] WBC (Bld) [#/Vol] 7.76 10*3/uL Normal 3.70-11.00 [facility] Comment on above: Order Comment: Speci men Type: BLOOD SPECIMENOrdering Facility: [facility] Address: [address] [place] [address] Performed By: #### 5 7021-8 ####[facility] LABORATORYCLIA [id number] [address] [place] CONSULT PROGon 08-18-2021 CONSULT PROG Normal [facility] CASE MANAGEMon 08-17-2021 CASE MANAGEM Normal [facility] CBC W Auto Differential pane l (Bld)on 08-17-2021 Basophils (Bld) [#/Vol] 0.04 10*3/uL Normal <0.11 [facility] Comment on above: Order Comment: Speci men Type: BLOOD SPECIMENOrdering Facility: [facility] Address: [address] [place] [address] Performed By: #### 5 7021-8 ####[facility] LABORATORYCLIA [id number] [address] [place] Basophils/100 WBC (Bld) 0.5 % Normal [facility] Comment on above: Order Comment: Speci men Type: BLOOD SPECIMENOrdering Facility: [facility] Address: [address] [place] [address] Performed By: #### 5 7021-8 ####[facility] LABORATORYCLIA [id number] [place] [address] [place] Differential cell count method Nom (Bld) Auto Normal [facility] Comment on above: Order Comment: Speci men Type: BLOOD SPECIMENOrdering Facility: [facility] Address: [address] [address] Performed By: #### 5 7021-8 ####[facility] LABORATORYCLIA [id number] [address] [place] Eosinophils (Bld) [#/Vol] 0.31 10*3/uL Normal <0.46 [facility] Comment on above: Order Comment: Speci men Type: BLOOD SPECIMENOrdering Facility: [facility] Address: [address] [place] [address] Performed By: #### 5 7021-8 ####[facility]ORATORYCLIA [id number] [address] Eosinophils/100 WBC (Bld) 3.7 % Normal [facility] Comment on above: Order Comment: Speci men Type: BLOOD SPECIMENOrdering Facility: [facility] Address: [address] [place] [address] Performed By: #### 5 7021-8 ####[facility] LABORATORYCLIA [id number] [address] Erythrocyte distribution width (RBC) [Ratio] 17.4 % High 11.5-15.0 [facility] Comment on above: Order Comment: Speci men Type: BLOOD SPECIMENOrdering Facility: [facility] Address: [address] [place] [address] Performed By: #### 5 7021-8 ####[facility] LABORATORYCLIA [id number] [address] Hematocrit (Bld) [Volume fraction] 30.6 % Low 39.0-51.0 [facility] Comment on above: Order Comment: Speci men Type: BLOOD SPECIMENOrdering Facility: [facility] Address: [address] [place] [address] Performed By: #### 5 7021-8 ####[facility] LABORATORYCLIA [id number] [address] [place] Hemoglobin (Bld) [Mass/Vol] 9.6 g/dL Low 13.0-17.0 [facility] Comment on above: Order Comment: Speci men Type: BLOOD SPECIMENOrdering Facility: [facility] Address: [address] [place] [address] Performed By: #### 5 7021-8 ####[facility]ATORYCLIA [id number] [address] IMMATURE GRAN % 0.2 % Normal [facility] Comment on above: Order Comment: Speci men Type: BLOOD SPECIMENOrdering Facility: [facility] Address: [address] [place] [address] Performed By: #### 5 7021-8 ####[facility] LABORATORYCLIA [id number] [address] IMMATURE GRAN ABS <0.03 Normal <0.10 [facility] Comment on above: Order Comment: Speci men Type: BLOOD SPECIMENOrdering Facility: [facility] Address: [address] [place] [address] Performed By: #### 5 7021-8 ####[facility] LABORATORYCLIA [id number] [address] Lymphocytes (Bld) [#/Vol] 1.66 10*3/uL Normal 1.00-4.00 [facility] Comment on above: Order Comment: Speci men Type: BLOOD SPECIMENOrdering Facility: [facility] Address: [address] [place] [address] Performed By: #### 5 7021-8 ####[facility] LABORATORYCLIA [id number] [address] Lymphocytes/100 WBC (Bld) 19.9 % Normal [facility] Comment on above: Order Comment: Speci men Type: BLOOD SPECIMENOrdering Facility: [facility] Address: [address] [place] [address] Performed By: #### 5 7021-8 ####[facility]ORATORYCLIA [id number] [address] MCH (RBC) [Entitic mass] 28.9 pg Normal 26.0-34.0 [facility] Comment on above: Order Comment: Speci men Type: BLOOD SPECIMENOrdering Facility: [facility] Address: [address] [place] [address] Performed By: #### 5 7021-8 ####[facility] LABORATORYCLIA [id number] [address] OF [facility] MCHC (RBC) [Mass/Vol] 31.4 g/dL Normal 30.5-36.0 [facility] Comment on above: Order Comment: Speci men Type: BLOOD SPECIMENOrdering Facility: [facility] Address: [address] [place] [address] Performed By: #### 5 7021-8 ####[facility] LABORATORYCLIA [id number] [address] MCV (RBC) [Entitic vol] 92.2 fL Normal 80.0-100.0 [facility] Comment on above: Order Comment: Speci men Type: BLOOD SPECIMENOrdering Facility: [facility] Address: [address] [place] [address] Performed By: #### 5 7021-8 ####[facility] LABORATORYCLIA [id number] [address] Monocytes (Bld) [#/Vol] 0.52 10*3/uL Normal <0.87 [facility] Comment on above: Order Comment: Speci men Type: BLOOD SPECIMENOrdering Facility: [facility] Address: [address] [place] [address] Performed By: #### 5 7021-8 ####[facility]ORATORYCLIA [id number] [address] Monocytes/100 WBC (Bld) 6.2 % Normal [facility] Comment on above: Order Comment: Speci men Type: BLOOD SPECIMENOrdering Facility: [facility] Address: [address] [place] [address] Performed By: #### 5 7021-8 ####[facility]ORATORYCLIA [id number] [address] [place] Neutrophils (Bld) [#/Vol] 5.78 10*3/uL Normal 1.45-7.50 [facility] Comment on above: Order Comment: Speci men Type: BLOOD SPECIMENOrdering Facility: [facility] Address: [address] [place] [address] Performed By: #### 5 7021-8 ####[facility]ATORYCLIA [id number] [address] [place] Neutrophils/100 WBC (Bld) 69.5 % Normal [facility] Comment on above: Order Comment: Speci men Type: BLOOD SPECIMENOrdering Facility: [facility] Address: [address] [place] [address] Performed By: #### 5 7021-8 ####[facility] LABORATORYCLIA [id number] [address] Nucleated RBC (Bld) [#/Vol] 10*3/uL Normal <0.01 [facility] Comment on above: Order Comment: Speci men Type: BLOOD SPECIMENOrdering Facility: [facility] Address: [address] [place] [address] Performed By: #### 5 7021-8 ####[facility] LABORATORYCLIA [id number] [address] [place] Nucleated RBC/100 WBC (Bld) [Ratio] 0.0 /100 WBC Normal [facility] Comment on above: Order Comment: Speci men Type: BLOOD SPECIMENOrdering Facility: [facility] Address: [address] [place] [address] Performed By: #### 5 7021-8 ####[facility]ORATORYCLIA [id number] [address] [place] Platelet mean volume (Bld) [Entitic vol] 9.2 fL Normal 9.0-12.7 [facility] Comment on above: Order Comment: Speci men Type: BLOOD SPECIMENOrdering Facility: [facility] Address: [address] [place] [address] Performed By: #### 5 7021-8 ####[facility] LABORATORYCLIA [id number] [address] OF [facility] Platelets (Bld) [#/Vol] 379 10*3/uL Normal 150-400 [facility] Comment on above: Order Comment: Speci men Type: BLOOD SPECIMENOrdering Facility: [facility] Address: [address] [place] [address] Performed By: #### 5 7021-8 ####[facility] LABORATORYCLIA [id number] [place] [address] [place] [facility] RBC (Bld) [#/Vol] 3.32 10*6/uL Low 4.20-6.00 [facility] Comment on above: Order Comment: Speci men Type: BLOOD SPECIMENOrdering Facility: [facility] Address: [address] [place] [address] Performed By: #### 5 7021-8 ####[facility] LABORATORYCLIA [id number] [address] OF [facility] WBC (Bld) [#/Vol] 8.33 10*3/uL Normal 3.70-11.00 [facility] Comment on above: Order Comment: Speci men Type: BLOOD SPECIMENOrdering Facility: [facility] Address: [address] [place] [address] Performed By: #### 5 7021-8 ####[facility] LABORATORYCLIA [id number] [address] OF [facility] CONSULT PROGon 08-17-2021 CONSULT PROG Normal [facility] NUTRITIONon 08-17-2021 NUTRITION Normal [facility] Basic metabolic 2000 panelon 08-16-2021 Anion gap [Moles/Vol] 14 mmol/L Normal 9-18 [facility] Comment on above: Order Comment: Speci men Type: BLOOD SPECIMENOrdering Facility: [facility] Address: [address] Performed By: #### 2 4321-2, ####[facility]ORATORYCLIA [id number] [place] [address] [place] Calcium [Mass/Vol] 8.8 mg/dL Normal 8.5-10.2 [facility] Comment on above: Order Comment: Speci men Type: BLOOD SPECIMENOrdering Facility: [facility] Address: [address] [place] [address] Performed By: #### 2 4320-2, ####[facility] LABORATORYCLIA [id number] [place] [address] [place] Chloride [Moles/Vol] 97 mmol/L Normal 97-105 [facility] Comment on above: Order Comment: Speci men Type: BLOOD SPECIMENOrdering Facility: [facility] Address: [address] [place] [address] Performed By: #### 2 2, ####[facility]ORATORYCLIA [id number] [place] [address] [place] CO2 [Moles/Vol] 27 mmol/L Normal 22-30 [facility] Comment on above: Order Comment: Speci men Type: BLOOD SPECIMENOrdering Facility: [facility] Address: [address] [address] Performed By: #### 2 2, ####[facility]ORATORYCLIA [id number] [place] [address] [place] Creatinine [Mass/Vol] 0.50 mg/dL Low 0.73-1.22 [facility] Comment on above: Order Comment: Speci men Type: BLOOD SPECIMENOrdering Facility: [facility] Address: [address] [address] Performed By: #### 2 4320-2, ####[facility]ORATORYCLIA [id number] [place] [address] [place] ESTIMATED GLOMERULAR FILTRATION RATE 110 mL/min/1.73m??? Normal >=60 [facility] Comment on above: Order Comment: Shira feldman Type: BLOOD SPECIMENOrdering Facility: [facility] Address: [address] [place] [address] Result Comment: Luzmaria mated Glomerular Filtration Rate [...] actual GFR. Performed By: #### 2 4321-2, 28170-2 ####[facility] LABORATORYCLIA [id number] [place] [address] [place] Glucose [Mass/Vol] 101 mg/dL High 74-99 [facility] Comment on above: Order Comment: Shira feldman Type: BLOOD SPECIMENOrdering Facility: [facility] Address: [address] [place] [address] Result Comment: The [place] [employer] (ADA) provides guidance for cutoff [...] Standards of Medical Care in Diabetes 2016, [place] [employer]. Diabetes Care. 2016.39(Suppl 1). Performed By: #### 2 4321-2, 38837-6 ####[facility] LABORATORYCLIA [id number] [place] [address] [place] Potassium [Moles/Vol] 3.6 mmol/L Low 3.7-5.1 [facility] Comment on above: Order Comment: Speci men Type: BLOOD SPECIMENOrdering Facility: [facility] Address: [address] [place] [address] Performed By: #### 2 4321-2, 62413-3 ####[facility] LABORATORYCLIA [id number] [address] STATES OF [facility] Sodium [Moles/Vol] 138 mmol/L Normal 136-144 [facility] Comment on above: Order Comment: Speci men Type: BLOOD SPECIMENOrdering Facility: [facility] Address: [address] [place] [address] Performed By: #### 2 4321-2, ####[facility] LABORATORYCLIA [id number] [address] [place] Urea nitrogen [Mass/Vol] 11 mg/dL Normal 9-24 [facility] Comment on above: Order Comment: Speci men Type: BLOOD SPECIMENOrdering Facility: [facility] Address: [address] [place] [address] Performed By: #### 2 4321-2, ####[facility] LABORATORYCLIA [id number] [address] OF [facility] CASE MANAGEMon 08-16-2021 CASE MANAGEM Normal [facility] CBC W Auto Differential pane l (Bld)on 08-16-2021 Basophils (Bld) [#/Vol] 0.03 10*3/uL Normal <0.11 [facility] Comment on above: Order Comment: Speci men Type: BLOOD SPECIMENOrdering Facility: [facility] Address: [address] [place] [address] Performed By: #### 5 7021-8 ####[facility] LABORATORYCLIA [id number] [address] [place] Basophils/100 WBC (Bld) 0.4 % Normal [facility] Comment on above: Order Comment: Speci men Type: BLOOD SPECIMENOrdering Facility: [facility] Address: [address] [place] [address] Performed By: #### 5 7021-8 ####[facility] LABORATORYCLIA [id number] [address] Differential cell count method Nom (Bld) Auto Normal [facility] Comment on above: Order Comment: Speci men Type: BLOOD SPECIMENOrdering Facility: [facility] Address: [address] [place] [address] Performed By: #### 5 7021-8 ####[facility] LABORATORYCLIA [id number] [address] Eosinophils (Bld) [#/Vol] 0.19 10*3/uL Normal <0.46 [facility] Comment on above: Order Comment: Speci men Type: BLOOD SPECIMENOrdering Facility: [facility] Address: [address] [place] [address] Performed By: #### 5 7021-8 ####[facility]ORATORYCLIA [id number] [address] Eosinophils/100 WBC (Bld) 2.5 % Normal [facility] Comment on above: Order Comment: Speci men Type: BLOOD SPECIMENOrdering Facility: [facility] Address: [address] [place] [address] Performed By: #### 5 7021-8 ####[facility]ORATORYCLIA [id number] [address] Erythrocyte distribution width (RBC) [Ratio] 17.1 % High 11.5-15.0 [facility] Comment on above: Order Comment: Speci men Type: BLOOD SPECIMENOrdering Facility: [facility] Address: [address] [place] [address] Performed By: #### 5 7021-8 ####[facility]ORATORYCLIA [id number] [address] Hematocrit (Bld) [Volume fraction] 29.2 % Low 39.0-51.0 [facility] Comment on above: Order Comment: Speci men Type: BLOOD SPECIMENOrdering Facility: [facility] Address: [address] [place] [address] Performed By: #### 5 7021-8 ####[facility] LABORATORYCLIA [id number] [address] STATES OF [facility] Hemoglobin (Bld) [Mass/Vol] 9.0 g/dL Low 13.0-17.0 [facility] Comment on above: Order Comment: Speci men Type: BLOOD SPECIMENOrdering Facility: [facility] Address: [address] [place] [address] Performed By: #### 5 7021-8 ####[facility]ORATORYCLIA [id number] [address] IMMATURE GRAN % 0.3 % Normal [facility] Comment on above: Order Comment: Speci men Type: BLOOD SPECIMENOrdering Facility: [facility] Address: [address] [place] [address] Performed By: #### 5 7021-8 ####[facility] LABORATORYCLIA [id number] [address] IMMATURE GRAN ABS <0.03 Normal <0.10 [facility] Comment on above: Order Comment: Speci men Type: BLOOD SPECIMENOrdering Facility: [facility] Address: [address] [place] [address] Performed By: #### 5 7021-8 ####[facility]ORATORYCLIA [id number] [address] [place] Lymphocytes (Bld) [#/Vol] 1.41 10*3/uL Normal 1.00-4.00 [facility] Comment on above: Order Comment: Speci men Type: BLOOD SPECIMENOrdering Facility: [facility] Address: [address] [place] [address] Performed By: #### 5 7021-8 ####[facility]ORATORYCLIA [id number] [address] Lymphocytes/100 WBC (Bld) 18.4 % Normal [facility] Comment on above: Order Comment: Speci men Type: BLOOD SPECIMENOrdering Facility: [facility] Address: [address] [place] [address] Performed By: #### 5 7021-8 ####[facility]ORATORYCLIA [id number] [address] MCH (RBC) [Entitic mass] 28.0 pg Normal 26.0-34.0 [facility] Comment on above: Order Comment: Speci men Type: BLOOD SPECIMENOrdering Facility: [facility] Address: [address] [place] [address] Performed By: #### 5 7021-8 ####[facility] LABORATORYCLIA [id number] [address] STATES [facility] MCHC (RBC) [Mass/Vol] 30.8 g/dL Normal 30.5-36.0 [facility] Comment on above: Order Comment: Speci men Type: BLOOD SPECIMENOrdering Facility: [facility] Address: [address] [place] [address] Performed By: #### 5 7021-8 ####[facility]ORATORYCLIA [id number] [address] MCV (RBC) [Entitic vol] 91.0 fL Normal 80.0-100.0 [facility] Comment on above: Order Comment: Speci men Type: BLOOD SPECIMENOrdering Facility: [facility] Address: [address] [place] [address] Performed By: #### 5 7021-8 ####[facility] LABORATORYCLIA [id number] [address] Monocytes (Bld) [#/Vol] 0.47 10*3/uL Normal <0.87 [facility] Comment on above: Order Comment: Speci men Type: BLOOD SPECIMENOrdering Facility: [facility] Address: [address] [place] [address] Performed By: #### 5 7021-8 ####[facility] LABORATORYCLIA [id number] [place] [address] [place] Monocytes/100 WBC (Bld) 6.1 % Normal [facility] Comment on above: Order Comment: Speci men Type: BLOOD SPECIMENOrdering Facility: [facility] Address: [address] [place] [address] Performed By: #### 5 7021-8 ####[facility]ORATORYCLIA [id number] [place] [address] [place] Neutrophils (Bld) [#/Vol] 5.55 10*3/uL Normal 1.45-7.50 [facility] Comment on above: Order Comment: Speci men Type: BLOOD SPECIMENOrdering Facility: [facility] Address: [address] [place] [address] Performed By: #### 5 7021-8 ####[facility]ORATORYCLIA [id number] [address] [place] Neutrophils/100 WBC (Bld) 72.3 % Normal [facility] Comment on above: Order Comment: Speci men Type: BLOOD SPECIMENOrdering Facility: [facility] Address: [address] [place] [address] Performed By: #### 5 7021-8 ####[facility]ATORYCLIA [id number] [place] [address] [place] Nucleated RBC (Bld) [#/Vol] 10*3/uL Normal <0.01 [facility] Comment on above: Order Comment: Speci men Type: BLOOD SPECIMENOrdering Facility: [facility] Address: [address] [place] [address] Performed By: #### 5 7021-8 ####[facility]ORATORYCLIA [id number] [place] [address] [place] Nucleated RBC/100 WBC (Bld) [Ratio] 0.0 /100 WBC Normal [facility] Comment on above: Order Comment: Speci men Type: BLOOD SPECIMENOrdering Facility: [facility] Address: [address] [place] [address] Performed By: #### 5 7021-8 ####[facility] LABORATORYCLIA [id number] [address] Platelet mean volume (Bld) [Entitic vol] 9.3 fL Normal 9.0-12.7 [facility] Comment on above: Order Comment: Speci men Type: BLOOD SPECIMENOrdering Facility: [facility] Address: [address] [place] [address] Performed By: #### 5 7021-8 ####[facility] LABORATORYCLIA [id number] [address] [place] Platelets (Bld) [#/Vol] 319 10*3/uL Normal 150-400 [facility] Comment on above: Order Comment: Speci men Type: BLOOD SPECIMENOrdering Facility: [facility] Address: [address] [place] [address] Performed By: #### 5 7021-8 ####[facility] LABORATORYCLIA [id number] [address] [place] RBC (Bld) [#/Vol] 3.21 10*6/uL Low 4.20-6.00 [facility] Comment on above: Order Comment: Speci men Type: BLOOD SPECIMENOrdering Facility: [facility] Address: [address] [place] [address] Performed By: #### 5 7021-8 ####[facility] LABORATORYCLIA [id number] [place] [address] [place] WBC (Bld) [#/Vol] 7.67 10*3/uL Normal 3.70-11.00 [facility] Comment on above: Order Comment: Speci men Type: BLOOD SPECIMENOrdering Facility: [facility] Address: [address] [place] [address] Performed By: #### 5 7021-8 ####[facility] LABORATORYCLIA [id number] [place] [address] [place] Basophils (Bld) [#/Vol] 0.04 10*3/uL Normal <0.11 [facility] Comment on above: Order Comment: Speci men Type: BLOOD SPECIMENOrdering Facility: [facility] Address: [address] [place] [address] Performed By: #### 5 7021-8 ####[facility]ORATORYCLIA [id number] [address] [place] Basophils/100 WBC (Bld) 0.5 % Normal [facility] Comment on above: Order Comment: Speci men Type: BLOOD SPECIMENOrdering Facility: [facility] Address: [address] [place] [address] Performed By: #### 5 7021-8 ####[facility]ATORYCLIA [id number] [address] Differential cell count method Nom (Bld) Auto Normal [facility] Comment on above: Order Comment: Speci men Type: BLOOD SPECIMENOrdering Facility: [facility] Address: [address] [place] [address] Performed By: #### 5 7021-8 ####[facility]ORATORYCLIA [id number] [address] OF [facility] Eosinophils (Bld) [#/Vol] 0.19 10*3/uL Normal <0.46 [facility] Comment on above: Order Comment: Speci men Type: BLOOD SPECIMENOrdering Facility: [facility] Address: [address] [place] [address] Performed By: #### 5 7021-8 ####[facility]ATORYCLIA [id number] [address] [place] Eosinophils/100 WBC (Bld) 2.5 % Normal [facility] Comment on above: Order Comment: Speci men Type: BLOOD SPECIMENOrdering Facility: [facility] Address: [address] [place] [address] Performed By: #### 5 7021-8 ####[facility]ATORYCLIA [id number] [address] [place] Erythrocyte distribution width (RBC) [Ratio] 17.2 % High 11.5-15.0 [facility] Comment on above: Order Comment: Speci men Type: BLOOD SPECIMENOrdering Facility: [facility] Address: [address] [place] [address] Performed By: #### 5 7021-8 ####[facility] LABORATORYCLIA [id number] [address] OF [facility] Hematocrit (Bld) [Volume fraction] 29.5 % Low 39.0-51.0 [facility] Comment on above: Order Comment: Speci men Type: BLOOD SPECIMENOrdering Facility: [facility] Address: [address] [place] [address] Performed By: #### 5 7021-8 ####[facility] LABORATORYCLIA [id number] [address] Hemoglobin (Bld) [Mass/Vol] 9.2 g/dL Low 13.0-17.0 [facility] Comment on above: Order Comment: Speci men Type: BLOOD SPECIMENOrdering Facility: [facility] Address: [address] [place] [address] Performed By: #### 5 7021-8 ####[facility] LABORATORYCLIA [id number] [address] IMMATURE GRAN % 0.4 % Normal [facility] Comment on above: Order Comment: Speci men Type: BLOOD SPECIMENOrdering Facility: [facility] Address: [address] [place] [address] Performed By: #### 5 7021-8 ####[facility] LABORATORYCLIA [id number] [address] IMMATURE GRAN ABS 0.03 k/uL Normal <0.10 [facility] Comment on above: Order Comment: Speci men Type: BLOOD SPECIMENOrdering Facility: [facility] Address: [address] [place] [address] Performed By: #### 5 7021-8 ####[facility] LABORATORYCLIA [id number] [address] [place] Lymphocytes (Bld) [#/Vol] 1.50 10*3/uL Normal 1.00-4.00 [facility] Comment on above: Order Comment: Speci men Type: BLOOD SPECIMENOrdering Facility: [facility] Address: [address] [place] [address] Performed By: #### 5 7021-8 ####[facility] LABORATORYCLIA [id number] [address] Lymphocytes/100 WBC (Bld) 19.7 % Normal [facility] Comment on above: Order Comment: Speci men Type: BLOOD SPECIMENOrdering Facility: [facility] Address: [address] [place] [address] Performed By: #### 5 7021-8 ####[facility] LABORATORYCLIA [id number] [address] STATES [facility] MCH (RBC) [Entitic mass] 28.3 pg Normal 26.0-34.0 [facility] Comment on above: Order Comment: Speci men Type: BLOOD SPECIMENOrdering Facility: [facility] Address: [address] [place] [address] Performed By: #### 5 7021-8 ####[facility] LABORATORYCLIA [id number] [address] [place] MCHC (RBC) [Mass/Vol] 31.2 g/dL Normal 30.5-36.0 [facility] Comment on above: Order Comment: Speci men Type: BLOOD SPECIMENOrdering Facility: [facility] Address: [address] [place] [address] Performed By: #### 5 7021-8 ####[facility] LABORATORYCLIA [id number] [address] [place] MCV (RBC) [Entitic vol] 90.8 fL Normal 80.0-100.0 [facility] Comment on above: Order Comment: Speci men Type: BLOOD SPECIMENOrdering Facility: [facility] Address: [address] [place] [address] Performed By: #### 5 7021-8 ####[facility]ORATORYCLIA [id number] [address] [place] Monocytes (Bld) [#/Vol] 0.49 10*3/uL Normal <0.87 [facility] Comment on above: Order Comment: Speci men Type: BLOOD SPECIMENOrdering Facility: [facility] Address: [address] [place] [address] Performed By: #### 5 7021-8 ####[facility] LABORATORYCLIA [id number] [address] OF [place] Monocytes/100 WBC (Bld) 6.4 % Normal [facility] Comment on above: Order Comment: Speci men Type: BLOOD SPECIMENOrdering Facility: [facility] Address: [address] [place] [address] Performed By: #### 5 7021-8 ####[facility] LABORATORYCLIA [id number] [address] [place] Neutrophils (Bld) [#/Vol] 5.38 10*3/uL Normal 1.45-7.50 [facility] Comment on above: Order Comment: Speci men Type: BLOOD SPECIMENOrdering Facility: [facility] Address: [address] [place] [address] Performed By: #### 5 7021-8 ####[facility]ORATORYCLIA [id number] [address] [place] Neutrophils/100 WBC (Bld) 70.5 % Normal [facility] Comment on above: Order Comment: Speci men Type: BLOOD SPECIMENOrdering Facility: [facility] Address: [address] [place] [address] Performed By: #### 5 7021-8 ####[facility]ORATORYCLIA [id number] [place] [address] [place] Nucleated RBC (Bld) [#/Vol] 10*3/uL Normal <0.01 [facility] Comment on above: Order Comment: Speci men Type: BLOOD SPECIMENOrdering Facility: [facility] Address: [address] [place] [address] Performed By: #### 5 7021-8 ####[facility] LABORATORYCLIA [id number] [address] [place] Nucleated RBC/100 WBC (Bld) [Ratio] 0.0 /100 WBC Normal [facility] Comment on above: Order Comment: Speci men Type: BLOOD SPECIMENOrdering Facility: [facility] Address: [address] [place] [address] Performed By: #### 5 7021-8 ####[facility] LABORATORYCLIA [id number] [place] [address] [place] Platelet mean volume (Bld) [Entitic vol] 9.0 fL Normal 9.0-12.7 [facility] Comment on above: Order Comment: Speci men Type: BLOOD SPECIMENOrdering Facility: [facility] Address: [address] [place], [place] [address] Performed By: #### 5 7021-8 ####[facility] LABORATORYCLIA [id number] [address] [place] Platelets (Bld) [#/Vol] 316 10*3/uL Normal 150-400 [facility] Comment on above: Order Comment: Speci men Type: BLOOD SPECIMENOrdering Facility: [facility] Address: [address] [place], [place] [address] Performed By: #### 5 7021-8 ####[facility] LABORATORYCLIA [id number] [address] [place] RBC (Bld) [#/Vol] 3.25 10*6/uL Low 4.20-6.00 [facility] Comment on above: Order Comment: Speci men Type: BLOOD SPECIMENOrdering Facility: [facility] Address: [address] [place], [place] [address] Performed By: #### 5 7021-8 ####[facility] LABORATORYCLIA [id number] [address] STATES OF [facility] WBC (Bld) [#/Vol] 7.63 10*3/uL Normal 3.70-11.00 [facility] Comment on above: Order Comment: Speci men Type: BLOOD SPECIMENOrdering Facility: [facility] Address: [address] [place] [address] Performed By: #### 5 7021-8 ####[facility] LABORATORYCLIA [id number] [address] OF [facility] Basophils (Bld) [#/Vol] Normal <0.11 [facility] Comment on above: Order Comment: Speci men Type: BLOOD SPECIMENOrdering Facility: [facility] Address: [address] [place] [address] Result Comment: Carolina Owens RN informed lab after results autoverified that she rd on the wrong patient. Lab to credit. Nurse to redraw on correct patient.Corrected result: Previously reported as 0.04 k/uL on 08/16/2021 at 4:44 AM EDT. Performed By: #### 5 7021-8 ####[facility]ORATORYCLIA [id number] [address] Basophils/100 WBC (Bld) Normal [facility] Comment on above: Order Comment: Speci men Type: BLOOD SPECIMENOrdering Facility: [facility] Address: [address] [place] [address] Result Comment: Tati ected result: Previously reported as 0.4 % on 08/16/2021 at 4:44 AM EDT. Performed By: #### 5 7021-8 ####[facility]ORATORYCLIA [id number] [address] STATES OF [facility] CBC W Differential panel, method unspecified (Bld) Normal [facility] Comment on above: Order Comment: Speci men Type: BLOOD SPECIMENOrdering Facility: [facility] Address: [address] [place] [address] Result Comment: Carolina Owens RN informed lab after results autoverified that she rd on the wrong patient. Lab to credit. Nurse to redraw on correct patient. Performed By: #### 5 7021-8 ####[facility]ORATORYCLIA [id number] [address] [place] Differential cell count method Nom (Bld) Normal [facility] Comment on above: Order Comment: Speci men Type: BLOOD SPECIMENOrdering Facility: [facility] Address: [address] [place] [address] Result Comment: Carolina Owens RN informed lab after results autoverified that she rd on the wrong patient. Lab to credit. Nurse to redraw on correct patient.Corrected result: Previously reported as Auto on 08/16/2021 at 4:44 AM EDT. Performed By: #### 5 7021-8 ####[facility]ORATORYCLIA [id number] [address] [place] Eosinophils (Bld) [#/Vol] Normal <0.46 [facility] Comment on above: Order Comment: Speci men Type: BLOOD SPECIMENOrdering Facility: [facility] Address: [address] [place] [address] Result Comment: Carolina Owens RN informed lab after results autoverified that she rd on the wrong patient. Lab to credit. Nurse to redraw on correct patient.Corrected result: Previously reported as 0.07 k/uL on 08/16/2021 at 4:44 AM EDT. Performed By: #### 5 7021-8 ####[facility]ORATORYCLIA [id number] [address] [place] Eosinophils/100 WBC (Bld) Normal [facility] Comment on above: Order Comment: Speci men Type: BLOOD SPECIMENOrdering Facility: [facility] Address: [address] [place] [address] Result Comment: Carolina Owens RN informed lab after results autoverified that she rd on the wrong patient. Lab to credit. Nurse to redraw on correct patient.Corrected result: Previously reported as 0.7 % on 08/16/2021 at 4:44 AM EDT. Performed By: #### 5 7021-8 ####[facility]ORATORYCLIA [id number] [address] Erythrocyte distribution width (RBC) [Ratio] Normal 11.5-15.0 [facility] Comment on above: Order Comment: Speci men Type: BLOOD SPECIMENOrdering Facility: [facility] Address: [address] [place] [address] Result Comment: Carolina Owens RN informed lab after results autoverified that she rd on the wrong patient. Lab to credit. Nurse to redraw on correct patient.Corrected result: Previously reported as 14.2 % on 08/16/2021 at 4:44 AM EDT. Performed By: #### 5 7021-8 ####[facility]ORATORYCLIA [id number] [address] Hematocrit (Bld) [Volume fraction] Normal 39.0-51.0 [facility] Comment on above: Order Comment: Speci [facility] Type: BLOOD SPECIMENOrdering Facility: [facility] Address: [address] [place] [address] Result Comment: Carolina Owens RN informed lab after results autoverified that she rd on the wrong patient. Lab to credit. Nurse to redraw on correct patient.Corrected result: Previously reported as 34.3 % on 08/16/2021 at 4:44 AM EDT. Performed By: #### 5 7021-8 ####[facility]ORATORYCLIA [id number] [address] OF [facility] Hemoglobin (Bld) [Mass/Vol] Normal 13.0-17.0 [facility] Comment on above: Order Comment: Speci men Type: BLOOD SPECIMENOrdering Facility: [facility] Address: [address] [place] [address] Result Comment: Carolina Owens RN informed lab after results autoverified that she rd on the wrong patient. Lab to credit. Nurse to redraw on correct patient.Corrected result: Previously reported as 11.2 g/dL on 08/16/2021 at 4:44 AM EDT. Performed By: #### 5 7021-8 ####[facility]ORATORYCLIA [id number] [address] IMMATURE GRAN % Normal [facility] Comment on above: Order Comment: Speci men Type: BLOOD SPECIMENOrdering Facility: [facility] Address: [address] [place] [address] Result Comment: Carolina Owens RN informed lab after results autoverified that she rd on the wrong patient. Lab to credit. Nurse to redraw on correct patient.Corrected result: Previously reported as 0.8 % on 08/16/2021 at 4:44 AM EDT. Performed By: #### 5 7021-8 ####[facility]ORATORYCLIA [id number] [address] IMMATURE GRAN ABS Normal <0.10 [facility] Comment on above: Order Comment: Speci men Type: BLOOD SPECIMENOrdering Facility: [facility] Address: [address] [place] [address] Result Comment: Tati ected result: Previously reported as 0.08 k/uL on 08/16/2021 at 4:44 AM EDT. Performed By: #### 5 7021-8 ####[facility]ORATORYCLIA [id number] [address] [place] Lymphocytes (Bld) [#/Vol] Normal 1.00-4.00 [facility] Comment on above: Order Comment: Speci [facility] Type: BLOOD SPECIMENOrdering Facility: [facility] Address: [address] [place] [address] Result Comment: Carolina Owens RN informed lab after results autoverified that she rd on the wrong patient. Lab to credit. Nurse to redraw on correct patient.Corrected result: Previously reported as 1.17 k/uL on 08/16/2021 at 4:44 AM EDT. Performed By: #### 5 7021-8 ####[facility]ORYCLIA [id number] [address] Lymphocytes/100 WBC (Bld) Normal [facility] Comment on above: Order Comment: Speci men Type: BLOOD SPECIMENOrdering Facility: [facility] Address: [address] [place] [address] Result Comment: Carolina Owens RN informed lab after results autoverified that she rd on the wrong patient. Lab to credit. Nurse to redraw on correct patient.Corrected result: Previously reported as 12.0 % on 08/16/2021 at 4:44 AM EDT. Performed By: #### 5 7021-8 ####[facility]ORATORYCLIA [id number] [address] MCHC (RBC) [Mass/Vol] Normal 30.5-36.0 [facility] Comment on above: Order Comment: Speci men Type: BLOOD SPECIMENOrdering Facility: [facility] Address: [address] [place] [address] Result Comment: Carolina Owens RN informed lab after results autoverified that she rd on the wrong patient. Lab to credit. Nurse to redraw on correct patient.Corrected result: Previously reported as 32.7 g/dL on 08/16/2021 at 4:44 AM EDT. Performed By: #### 5 7021-8 ####[facility]ORATORYCLIA [id number] [address] MCV (RBC) [Entitic vol] Normal 80.0-100.0 [facility] Comment on above: Order Comment: Speci men Type: BLOOD SPECIMENOrdering Facility: [facility] Address: [address] [place] [address] Result Comment: Carolina Owens RN informed lab after results autoverified that she rd on the wrong patient. Lab to credit. Nurse to redraw on correct patient.Corrected result: Previously reported as 94.2 fL on 08/16/2021 at 4:44 AM EDT. Performed By: #### 5 7021-8 ####[facility]ATORYCLIA [id number] [place] [address] [place] Monocytes (Bld) [#/Vol] Normal <0.87 [facility] Comment on above: Order Comment: Speci men Type: BLOOD SPECIMENOrdering Facility: [facility] Address: [address] [place] [address] Result Comment: Carolina Owens RN informed lab after results autoverified that she rd on the wrong patient. Lab to credit. Nurse to redraw on correct patient.Corrected result: Previously reported as 0.99 k/uL on 08/16/2021 at 4:44 AM EDT. Performed By: #### 5 7021-8 ####[facility]ORATORYCLIA [id number] [address] Monocytes/100 WBC (Bld) Normal [facility] Comment on above: Order Comment: Speci men Type: BLOOD SPECIMENOrdering Facility: [facility] Address: [address] [place] [address] Result Comment: Carolina Owens RN informed lab after results autoverified that she rd on the wrong patient. Lab to credit. Nurse to redraw on correct patient.Corrected result: Previously reported as 10.2 % on 08/16/2021 at 4:44 AM EDT. Performed By: #### 5 7021-8 ####[facility]ORATORYCLIA [id number] [place] [address] [place] Neutrophils (Bld) [#/Vol] Normal 1.45-7.50 [facility] Comment on above: Order Comment: Speci men Type: BLOOD SPECIMENOrdering Facility: [facility] Address: [address] [place] [address] Result Comment: Carolina Owens RN informed lab after results autoverified that she rd on the wrong patient. Lab to credit. Nurse to redraw on correct patient.Corrected result: Previously reported as 7.40 k/uL on 08/16/2021 at 4:44 AM EDT. Performed By: #### 5 7021-8 ####[facility]ATORYCLIA [id number] [address] [place] Neutrophils/100 WBC (Bld) Normal [facility] Comment on above: Order Comment: Speci men Type: BLOOD SPECIMENOrdering Facility: [facility] Address: [address] [place] [address] Result Comment: Carolina Owens RN informed lab after results autoverified that she rd on the wrong patient. Lab to credit. Nurse to redraw on correct patient.Corrected result: Previously reported as 75.9 % on 08/16/2021 at 4:44 AM EDT. Performed By: #### 5 7021-8 ####[facility]ORATORYCLIA [id number] [address] [place] Platelet mean volume (Bld) [Entitic vol] Normal 9.0-12.7 [facility] Comment on above: Order Comment: Speci men Type: BLOOD SPECIMENOrdering Facility: [facility] Address: [address] [place] [address] Result Comment: Carolina Owens RN informed lab after results autoverified that she rd on the wrong patient. Lab to credit. Nurse to redraw on correct patient.Corrected result: Previously reported as 9.1 fL on 08/16/2021 at 4:44 AM EDT. Performed By: #### 5 7021-8 ####[facility]ORATORYCLIA [id number] [address] [place] Platelets (Bld) [#/Vol] Normal 150-400 [facility] Comment on above: Order Comment: Speci men Type: BLOOD SPECIMENOrdering Facility: [facility] Address: [address] [place] [address] Result Comment: Carolina Owens RN informed lab after results autoverified that she rd on the wrong patient. Lab to credit. Nurse to redraw on correct patient.Corrected result: Previously reported as 338 k/uL on 08/16/2021 at 4:44 AM EDT. Performed By: #### 5 7021-8 ####[facility]ORATORYCLIA [id number] [address] RBC (Bld) [#/Vol] Normal 4.20-6.00 [facility] Comment on above: Order Comment: Speci men Type: BLOOD SPECIMENOrdering Facility: [facility] Address: [address] [place] [address] Result Comment: Carolina Owens RN informed lab after results autoverified that she rd on the wrong patient. Lab to credit. Nurse to redraw on correct patient.Corrected result: Previously reported as 3.64 m/uL on 08/16/2021 at 4:44 AM EDT. Performed By: #### 5 7021-8 ####[facility]ORATORYCLIA [id number] [address] WBC (Bld) [#/Vol] Normal 3.70-11.00 [facility] Comment on above: Order Comment: Speci francia Type: BLOOD SPECIMENOrdering Facility: [facility] Address: [address] [place] [address] Result Comment: Carolina Owens RN informed lab after results autoverified that she rd on the wrong patient. Lab to credit. Nurse to redraw on correct patient.Corrected result: Previously reported as 9.75 k/uL on 08/16/2021 at 4:44 AM EDT. Performed By: #### 5 7021-8 ####[facility] LABORATORYCLIA [id number] [address] CONSULT PROGon 08-16-2021 CONSULT PROG Normal [facility] Magnesium SerPl-mCncon 08-16 Magnesium [Mass/Vol] 1.8 mg/dL Normal 1.7-2.3 [facility] Comment on above: Order Comment: Speci francia Type: BLOOD SPECIMENOrdering Facility: [facility] Address: [address] [place] [address] Performed By: #### 2 4321-2, 19694-1 ####[facility] LABORATORYCLIA [id number] [address] NURSING PROGon 08-16-2021 NURSING PROG Normal [facility] Basic metabolic 2000 panelon 08-15-2021 Anion gap [Moles/Vol] 13 mmol/L Normal 9-18 [facility] Comment on above: Order Comment: Speci men Type: BLOOD SPECIMENOrdering Facility: [facility] Address: [address] [place] [address] Performed By: #### 2 4321-2 ####[facility] LABORATORYCLIA [id number] [place] [address] [place] Calcium [Mass/Vol] 9.0 mg/dL Normal 8.5-10.2 [facility] Comment on above: Order Comment: Speci men Type: BLOOD SPECIMENOrdering Facility: [facility] Address: [address] [place] [address] Performed By: #### 2 4321-2 ####[facility] LABORATORYCLIA [id number] [place] [address] [place] Chloride [Moles/Vol] 95 mmol/L Low 97-105 [facility] Comment on above: Order Comment: Speci men Type: BLOOD SPECIMENOrdering Facility: [facility] Address: [address] [place] [address] Performed By: #### 2 4321-2 ####[facility] LABORATORYCLIA [id number] [place] [address] [place] CO2 [Moles/Vol] 28 mmol/L Normal 22-30 [facility] Comment on above: Order Comment: Speci men Type: BLOOD SPECIMENOrdering Facility: [facility] Address: [address] [place] [address] Performed By: #### 2 4321-2 ####[facility] LABORATORYCLIA [id number] [place] [address] [place] Creatinine [Mass/Vol] 0.50 mg/dL Low 0.73-1.22 [facility] Comment on above: Order Comment: Speci men Type: BLOOD SPECIMENOrdering Facility: [facility] Address: [address] [place] [address] Performed By: #### 2 4321-2 ####[facility] [id number] [address] [place] ESTIMATED GLOMERULAR FILTRATION RATE 110 mL/min/1.73m??? Normal >=60 [facility] Comment on above: Order Comment: Johncara feldman Type: BLOOD SPECIMENOrdering Facility: [facility] Address: [address] [place] [address] Result Comment: Luzmaria mated Glomerular Filtration Rate [...] actual GFR. Performed By: #### 2 4321-2 ####[facility] CENTERIA [id number] [place] [address] [place] Glucose [Mass/Vol] 106 mg/dL High 74-99 [facility] Comment on above: Order Comment: Shira feldman Type: BLOOD SPECIMENOrdering Facility: [facility] Address: [address] [place] [address] Result Comment: The [place] Diabetes Association (ADA) provides guidance for cutoff [...] Standards of Medical Care in Diabetes 2016, [place] [employer]. Diabetes Care. 2016.39(Suppl 1). Performed By: #### 2 4321-2 ####[facility] LABORATORYCLIA [id number] [place] [address] [place] Potassium [Moles/Vol] 3.3 mmol/L Low 3.7-5.1 [facility] Comment on above: Order Comment: Speci men Type: BLOOD SPECIMENOrdering Facility: [facility] Address: [address] [place] [address] Performed By: #### 2 4321-2 ####[facility] LABORATORYCLIA [id number] [place] [address] [place] Sodium [Moles/Vol] 136 mmol/L Normal 136-144 [facility] Comment on above: Order Comment: Speci men Type: BLOOD SPECIMENOrdering Facility: [facility] Address: [address] [place] [address] Performed By: #### 2 4321-2 ####[facility] LABORATORYCLIA [id number] [place] [address] [place] Urea nitrogen [Mass/Vol] 11 mg/dL Normal 9-24 [facility] Comment on above: Order Comment: Speci men Type: BLOOD SPECIMENOrdering Facility: [facility] Address: [address] [place] [address] Performed By: #### 2 4321-2 ####[facility] LABORATORYCLIA [id number] [place] [address] [place] CASE MANAGEMon 08-15-2021 CASE MANAGEM Normal [facility] CBC W Auto Differential pane l (Bld)on 08-15-2021 Basophils (Bld) [#/Vol] 0.03 10*3/uL Normal <0.11 [facility] Comment on above: Order Comment: Speci men Type: BLOOD SPECIMENOrdering Facility: [facility] Address: [address] [place] [address] Performed By: #### 5 7021-8 ####[facility] LABORATORYCLIA [id number] [address] [place] Basophils/100 WBC (Bld) 0.4 % Normal [facility] Comment on above: Order Comment: Speci men Type: BLOOD SPECIMENOrdering Facility: [facility] Address: [address] [address] Performed By: #### 5 7021-8 ####[facility] LABORATORYCLIA [id number] [address] Differential cell count method Nom (Bld) Auto Normal [facility] Comment on above: Order Comment: Speci men Type: BLOOD SPECIMENOrdering Facility: [facility] Address: [address] [place] [address] Performed By: #### 5 7021-8 ####[facility] LABORATORYCLIA [id number] [address] [place] Eosinophils (Bld) [#/Vol] 0.20 10*3/uL Normal <0.46 [facility] Comment on above: Order Comment: Speci men Type: BLOOD SPECIMENOrdering Facility: [facility] Address: [address] [place] [address] Performed By: #### 5 7021-8 ####[facility] LABORATORYCLIA [id number] [address] Eosinophils/100 WBC (Bld) 2.5 % Normal [facility] Comment on above: Order Comment: Speci men Type: BLOOD SPECIMENOrdering Facility: [facility] Address: [address] [place] [address] Performed By: #### 5 7021-8 ####[facility] LABORATORYCLIA [id number] [address] [place] Erythrocyte distribution width (RBC) [Ratio] 16.7 % High 11.5-15.0 [facility] Comment on above: Order Comment: Speci men Type: BLOOD SPECIMENOrdering Facility: [facility] Address: [address] [place] [address] Performed By: #### 5 7021-8 ####[facility] LABORATORYCLIA [id number] [address] [place] Hematocrit (Bld) [Volume fraction] 30.3 % Low 39.0-51.0 [facility] Comment on above: Order Comment: Speci men Type: BLOOD SPECIMENOrdering Facility: [facility] Address: [address] [place] [address] Performed By: #### 5 7021-8 ####[facility] LABORATORYCLIA [id number] [address] [place] Hemoglobin (Bld) [Mass/Vol] 9.4 g/dL Low 13.0-17.0 [facility] Comment on above: Order Comment: Speci men Type: BLOOD SPECIMENOrdering Facility: [facility] Address: [address] [place] [address] Performed By: #### 5 7021-8 ####[facility] LABORATORYCLIA [id number] [address] IMMATURE GRAN % 0.4 % Normal [facility] Comment on above: Order Comment: Speci men Type: BLOOD SPECIMENOrdering Facility: [facility] Address: [address] [place] [address] Performed By: #### 5 7021-8 ####[facility] LABORATORYCLIA [id number] [address] IMMATURE GRAN ABS 0.03 k/uL Normal <0.10 [facility] Comment on above: Order Comment: Speci men Type: BLOOD SPECIMENOrdering Facility: [facility] Address: [address] [place] [address] Performed By: #### 5 7021-8 ####[facility] LABORATORYCLIA [id number] [address] [place] Lymphocytes (Bld) [#/Vol] 1.50 10*3/uL Normal 1.00-4.00 [facility] Comment on above: Order Comment: Speci men Type: BLOOD SPECIMENOrdering Facility: [facility] Address: [address] [place] [address] Performed By: #### 5 7021-8 ####[facility] LABORATORYCLIA [id number] [address] Lymphocytes/100 WBC (Bld) 18.5 % Normal [facility] Comment on above: Order Comment: Speci men Type: BLOOD SPECIMENOrdering Facility: [facility] Address: [address] [place] [address] Performed By: #### 5 7021-8 ####[facility] LABORATORYCLIA [id number] [address] STATES OF [facility] MCH (RBC) [Entitic mass] 29.0 pg Normal 26.0-34.0 [facility] Comment on above: Order Comment: Speci men Type: BLOOD SPECIMENOrdering Facility: [facility] Address: [address] [place] [address] Performed By: #### 5 7021-8 ####[facility] LABORATORYCLIA [id number] [address] [place] MCHC (RBC) [Mass/Vol] 31.0 g/dL Normal 30.5-36.0 [facility] Comment on above: Order Comment: Speci men Type: BLOOD SPECIMENOrdering Facility: [facility] Address: [address] [place] [address] Performed By: #### 5 7021-8 ####[facility] LABORATORYCLIA [id number] [address] MCV (RBC) [Entitic vol] 93.5 fL Normal 80.0-100.0 [facility] Comment on above: Order Comment: Speci men Type: BLOOD SPECIMENOrdering Facility: [facility] Address: [address] [place] [address] Performed By: #### 5 7021-8 ####[facility] LABORATORYCLIA [id number] [address] Monocytes (Bld) [#/Vol] 0.47 10*3/uL Normal <0.87 [facility] Comment on above: Order Comment: Speci men Type: BLOOD SPECIMENOrdering Facility: [facility] Address: [address] [place] [address] Performed By: #### 5 7021-8 ####[facility]ORATORYCLIA [id number] [address] [place] Monocytes/100 WBC (Bld) 5.8 % Normal [facility] Comment on above: Order Comment: Speci men Type: BLOOD SPECIMENOrdering Facility: [facility] Address: [address] [place] [address] Performed By: #### 5 7021-8 ####[facility]ORATORYCLIA [id number] [address] [place] Neutrophils (Bld) [#/Vol] 5.87 10*3/uL Normal 1.45-7.50 [facility] Comment on above: Order Comment: Speci men Type: BLOOD SPECIMENOrdering Facility: [facility] Address: [address] [place] [address] Performed By: #### 5 7021-8 ####[facility]ORATORYCLIA [id number] [address] Neutrophils/100 WBC (Bld) 72.4 % Normal [facility] Comment on above: Order Comment: Speci men Type: BLOOD SPECIMENOrdering Facility: [facility] Address: [address] [place] [address] Performed By: #### 5 7021-8 ####[facility]ORATORYCLIA [id number] [address] [place] Nucleated RBC (Bld) [#/Vol] 10*3/uL Normal <0.01 [facility] Comment on above: Order Comment: Speci men Type: BLOOD SPECIMENOrdering Facility: [facility] Address: [address] [place] [address] Performed By: #### 5 7021-8 ####[facility]ORATORYCLIA [id number] [address] [place] Nucleated RBC/100 WBC (Bld) [Ratio] 0.0 /100 WBC Normal [facility] Comment on above: Order Comment: Speci men Type: BLOOD SPECIMENOrdering Facility: [facility] Address: [address] Performed By: #### 5 7021-8 ####[facility] LABORATORYCLIA [id number] [address] STATES [facility] Platelet mean volume (Bld) [Entitic vol] 9.4 fL Normal 9.0-12.7 [facility] Comment on above: Order Comment: Speci men Type: BLOOD SPECIMENOrdering Facility: [facility] Address: [address] [place] [address] Performed By: #### 5 7021-8 ####[facility] LABORATORYCLIA [id number] [address] [place] Platelets (Bld) [#/Vol] 290 10*3/uL Normal 150-400 [facility] Comment on above: Order Comment: Speci men Type: BLOOD SPECIMENOrdering Facility: [facility] Address: [address] [place] [address] Performed By: #### 5 7021-8 ####[facility] LABORATORYCLIA [id number] [place] [address] [place] RBC (Bld) [#/Vol] 3.24 10*6/uL Low 4.20-6.00 [facility] Comment on above: Order Comment: Speci men Type: BLOOD SPECIMENOrdering Facility: [facility] Address: [address] [place], [place] [address] Performed By: #### 5 7021-8 ####[facility] LABORATORYCLIA [id number] [address] [place] WBC (Bld) [#/Vol] 8.10 10*3/uL Normal 3.70-11.00 [facility] Comment on above: Order Comment: Speci men Type: BLOOD SPECIMENOrdering Facility: [facility] Address: [address] [place] [address] Performed By: #### 5 7021-8 ####[facility] LABORATORYCLIA [id number] [address] [place] THERAPY NTon 08-15-2021 THERAPY NT Normal [facility] THERAPY NT Normal [facility] THERAPY NT Normal [facility] Basic metabolic 2000 panelon 08-14-2021 Anion gap [Moles/Vol] 10 mmol/L Normal 9-18 [facility] Comment on above: Order Comment: Speci men Type: BLOOD SPECIMENOrdering Facility: [facility] Address: [address] [place] [address] Performed By: #### 2 4321-2 ####[facility] LABORATORYCLIA [id number] [place] [address] [place] Calcium [Mass/Vol] 8.8 mg/dL Normal 8.5-10.2 [facility] Comment on above: Order Comment: Speci men Type: BLOOD SPECIMENOrdering Facility: [facility] Address: [address] [place] [address] Performed By: #### 2 4321-2 ####[facility] LABORATORYCLIA [id number] [place] [address] [place] Chloride [Moles/Vol] 92 mmol/L Low 97-105 [facility] Comment on above: Order Comment: Speci men Type: BLOOD SPECIMENOrdering Facility: [facility] Address: [address] [place] [address] Performed By: #### 2 4321-2 ####[facility] LABORATORYCLIA [id number] [place] [address] [place] CO2 [Moles/Vol] 29 mmol/L Normal 22-30 [facility] Comment on above: Order Comment: Speci men Type: BLOOD SPECIMENOrdering Facility: [facility] Address: [address] [place] [address] Performed By: #### 2 4321-2 ####[facility] LABORATORYCLIA [id number] [place] [address] [place] Creatinine [Mass/Vol] 0.49 mg/dL Low 0.73-1.22 [facility] Comment on above: Order Comment: Speci men Type: BLOOD SPECIMENOrdering Facility: [facility] Address: [address] [place] [address] Performed By: #### 2 4321-2 ####[facility]'S CENTERIA [id number] [address] ESTIMATED GLOMERULAR FILTRATION RATE 111 mL/min/1.73m??? Normal >=60 [facility] Comment on above: Order Comment: Shira francia Type: BLOOD SPECIMENOrdering Facility: [facility] Address: [address] [place] [address] Result Comment: Luzmaria mated Glomerular Filtration Rate [...] actual GFR. Performed By: #### 2 4321-2 ####[facility]'S CENTERIA [id number] [place] [address] [place] Glucose [Mass/Vol] 104 mg/dL High 74-99 [facility] Comment on above: Order Comment: Shira francia Type: BLOOD SPECIMENOrdering Facility: [facility] Address: [address] [place] [address] Result Comment: The [place] Diabetes [employer] (ADA) provides guidance for cutoff [...] Standards of Medical Care in Diabetes 2016, [place] [employer]. Diabetes Care. 2016.39(Suppl 1). Performed By: #### 2 4321-2 ####[facility] CENTERIA [id number] [place] [address] [place] Potassium [Moles/Vol] 3.1 mmol/L Low 3.7-5.1 [facility] Comment on above: Order Comment: Speci men Type: BLOOD SPECIMENOrdering Facility: [facility] Address: [address] [place] [address] Performed By: #### 2 4321-2 ####[facility] LABORATORYCLIA [id number] [place] [address] [place] Sodium [Moles/Vol] 131 mmol/L Low 136-144 [facility] Comment on above: Order Comment: Speci men Type: BLOOD SPECIMENOrdering Facility: [facility] Address: [address] [place] [address] Performed By: #### 2 4321-2 ####[facility] LABORATORYCLIA [id number] [address] [place] Urea nitrogen [Mass/Vol] 13 mg/dL Normal 9-24 [facility] Comment on above: Order Comment: Speci men Type: BLOOD SPECIMENOrdering Facility: [facility] Address: [address] [place] [address] Performed By: #### 2 4321-2 ####[facility] LABORATORYCLIA [id number] [place] [address] [place] CBC W Auto Differential pane l (Bld)on 08-14-2021 Basophils (Bld) [#/Vol] 10*3/uL Normal <0.11 [facility] Comment on above: Order Comment: Speci men Type: BLOOD SPECIMENOrdering Facility: [facility] Address: [address] [place] [address] Performed By: #### 5 7021-8 ####[facility] LABORATORYCLIA [id number] [address] [place] Basophils/100 WBC (Bld) 0.2 % Normal [facility] Comment on above: Order Comment: Speci men Type: BLOOD SPECIMENOrdering Facility: [facility] Address: [address] [address] Performed By: #### 5 7021-8 ####[facility] LABORATORYCLIA [id number] [address] Differential cell count method Nom (Bld) Auto Normal [facility] Comment on above: Order Comment: Speci men Type: BLOOD SPECIMENOrdering Facility: [facility] Address: [address] [place] [address] Performed By: #### 5 7021-8 ####[facility] LABORATORYCLIA [id number] [address] [place] Eosinophils (Bld) [#/Vol] 0.23 10*3/uL Normal <0.46 [facility] Comment on above: Order Comment: Speci men Type: BLOOD SPECIMENOrdering Facility: [facility] Address: [address] [place] [address] Performed By: #### 5 7021-8 ####[facility] LABORATORYCLIA [id number] [address] Eosinophils/100 WBC (Bld) 2.7 % Normal [facility] Comment on above: Order Comment: Speci men Type: BLOOD SPECIMENOrdering Facility: [facility] Address: [address] [place] [address] Performed By: #### 5 7021-8 ####[facility] LABORATORYCLIA [id number] [address] [place] Erythrocyte distribution width (RBC) [Ratio] 16.6 % High 11.5-15.0 [facility] Comment on above: Order Comment: Speci men Type: BLOOD SPECIMENOrdering Facility: [facility] Address: [address] [place] [address] Performed By: #### 5 7021-8 ####[facility] LABORATORYCLIA [id number] [address] [place] Hematocrit (Bld) [Volume fraction] 28.6 % Low 39.0-51.0 [facility] Comment on above: Order Comment: Speci men Type: BLOOD SPECIMENOrdering Facility: [facility] Address: [address] [place] [address] Performed By: #### 5 7021-8 ####[facility] LABORATORYCLIA [id number] [address] [place] Hemoglobin (Bld) [Mass/Vol] 9.0 g/dL Low 13.0-17.0 [facility] Comment on above: Order Comment: Speci men Type: BLOOD SPECIMENOrdering Facility: [facility] Address: [address] [place] [address] Performed By: #### 5 7021-8 ####[facility] LABORATORYCLIA [id number] [address] IMMATURE GRAN % 0.2 % Normal [facility] Comment on above: Order Comment: Speci men Type: BLOOD SPECIMENOrdering Facility: [facility] Address: [address] [place] [address] Performed By: #### 5 7021-8 ####[facility] LABORATORYCLIA [id number] [address] IMMATURE GRAN ABS <0.03 Normal <0.10 [facility] Comment on above: Order Comment: Speci men Type: BLOOD SPECIMENOrdering Facility: [facility] Address: [address] [place] [address] Performed By: #### 5 7021-8 ####[facility] LABORATORYCLIA [id number] [address] [place] Lymphocytes (Bld) [#/Vol] 1.33 10*3/uL Normal 1.00-4.00 [facility] Comment on above: Order Comment: Speci men Type: BLOOD SPECIMENOrdering Facility: [facility] Address: [address] [place] [address] Performed By: #### 5 7021-8 ####[facility] LABORATORYCLIA [id number] [address] Lymphocytes/100 WBC (Bld) 15.6 % Normal [facility] Comment on above: Order Comment: Speci men Type: BLOOD SPECIMENOrdering Facility: [facility] Address: [address] [place] [address] Performed By: #### 5 7021-8 ####[facility] LABORATORYCLIA [id number] [address] STATES OF [facility] MCH (RBC) [Entitic mass] 29.0 pg Normal 26.0-34.0 [facility] Comment on above: Order Comment: Speci men Type: BLOOD SPECIMENOrdering Facility: [facility] Address: [address] [place] [address] Performed By: #### 5 7021-8 ####[facility] LABORATORYCLIA [id number] [address] OF [facility] MCHC (RBC) [Mass/Vol] 31.5 g/dL Normal 30.5-36.0 [facility] Comment on above: Order Comment: Speci men Type: BLOOD SPECIMENOrdering Facility: [facility] Address: [address] [place] [address] Performed By: #### 5 7021-8 ####[facility] LABORATORYCLIA [id number] [address] MCV (RBC) [Entitic vol] 92.3 fL Normal 80.0-100.0 [facility] Comment on above: Order Comment: Speci men Type: BLOOD SPECIMENOrdering Facility: [facility] Address: [address] [place] [address] Performed By: #### 5 7021-8 ####[facility] LABORATORYCLIA [id number] [address] Monocytes (Bld) [#/Vol] 0.44 10*3/uL Normal <0.87 [facility] Comment on above: Order Comment: Speci men Type: BLOOD SPECIMENOrdering Facility: [facility] Address: [address] [place] [address] Performed By: #### 5 7021-8 ####[facility] LABORATORYCLIA [id number] [address] [place] Monocytes/100 WBC (Bld) 5.2 % Normal [facility] Comment on above: Order Comment: Speci men Type: BLOOD SPECIMENOrdering Facility: [facility] Address: [address] [place] [address] Performed By: #### 5 7021-8 ####[facility]ORATORYCLIA [id number] [address] [place] Neutrophils (Bld) [#/Vol] 6.46 10*3/uL Normal 1.45-7.50 [facility] Comment on above: Order Comment: Speci men Type: BLOOD SPECIMENOrdering Facility: [facility] Address: [address] [place] [address] Performed By: #### 5 7021-8 ####[facility] LABORATORYCLIA [id number] [address] Neutrophils/100 WBC (Bld) 76.1 % Normal [facility] Comment on above: Order Comment: Speci men Type: BLOOD SPECIMENOrdering Facility: [facility] Address: [address] [place] [address] Performed By: #### 5 7021-8 ####[facility] LABORATORYCLIA [id number] [address] [place] Nucleated RBC (Bld) [#/Vol] 10*3/uL Normal <0.01 [facility] Comment on above: Order Comment: Speci men Type: BLOOD SPECIMENOrdering Facility: [facility] Address: [address] [place] [address] Performed By: #### 5 7021-8 ####[facility]ATORYCLIA [id number] [address] [place] Nucleated RBC/100 WBC (Bld) [Ratio] 0.0 /100 WBC Normal [facility] Comment on above: Order Comment: Speci men Type: BLOOD SPECIMENOrdering Facility: [facility] Address: [address] [place], [place] [address] Performed By: #### 5 7021-8 ####[facility] LABORATORYCLIA [id number] [address] Platelet mean volume (Bld) [Entitic vol] 9.5 fL Normal 9.0-12.7 [facility] Comment on above: Order Comment: Speci men Type: BLOOD SPECIMENOrdering Facility: [facility] Address: [address] [place], [place] [address] Performed By: #### 5 7021-8 ####[facility] LABORATORYCLIA [id number] [address] [place] Platelets (Bld) [#/Vol] 247 10*3/uL Normal 150-400 [facility] Comment on above: Order Comment: Speci men Type: BLOOD SPECIMENOrdering Facility: [facility] Address: [address] [place], [place] [address] Performed By: #### 5 7021-8 ####[facility]ORATORYCLIA [id number] [place] [address] [place] RBC (Bld) [#/Vol] 3.10 10*6/uL Low 4.20-6.00 [facility] Comment on above: Order Comment: Speci men Type: BLOOD SPECIMENOrdering Facility: [facility] Address: [address] [place], [place] [address] Performed By: #### 5 7021-8 ####[facility]ORATORYCLIA [id number] [address] [place] WBC (Bld) [#/Vol] 8.50 10*3/uL Normal 3.70-11.00 [facility] Comment on above: Order Comment: Speci men Type: BLOOD SPECIMENOrdering Facility: [facility] Address: [address] [place], [place] [address] Performed By: #### 5 7021-8 ####[facility] LABORATORYCLIA [id number] [place] [address] [place] CONSULTon 08-14-2021 CONSULT Normal [facility] NURSING PROGon 08-14-2021 NURSING PROG Normal [facility] CBC W Auto Differential pane l (Bld)on 08-13-2021 Basophils (Bld) [#/Vol] 10*3/uL Normal <0.11 [facility] Comment on above: Order Comment: Speci men Type: BLOOD SPECIMENOrdering Facility: [facility] Address: [address] [place] [address] Performed By: #### 5 7021-8 ####[facility]ORATORYCLIA [id number] [address] Basophils/100 WBC (Bld) 0.2 % Normal [facility] Comment on above: Order Comment: Speci men Type: BLOOD SPECIMENOrdering Facility: [facility] Address: [address] [place] [address] Performed By: #### 5 7021-8 ####[facility] LABORATORYCLIA [id number] [address] STATES OF [facility] Differential cell count method Nom (Bld) Auto Normal [facility] Comment on above: Order Comment: Speci men Type: BLOOD SPECIMENOrdering Facility: [facility] Address: [address] [place] [address] Performed By: #### 5 7021-8 ####[facility]ORATORYCLIA [id number] [place] [address] [place] Eosinophils (Bld) [#/Vol] 0.31 10*3/uL Normal <0.46 [facility] Comment on above: Order Comment: Speci men Type: BLOOD SPECIMENOrdering Facility: [facility] Address: [address] [place] [address] Performed By: #### 5 7021-8 ####[facility] LABORATORYCLIA [id number] [address] [place] Eosinophils/100 WBC (Bld) 3.7 % Normal [facility] Comment on above: Order Comment: Speci men Type: BLOOD SPECIMENOrdering Facility: [facility] Address: [address] [place] [address] Performed By: #### 5 7021-8 ####[facility] LABORATORYCLIA [id number] [address] Erythrocyte distribution width (RBC) [Ratio] 16.6 % High 11.5-15.0 [facility] Comment on above: Order Comment: Speci men Type: BLOOD SPECIMENOrdering Facility: [facility] Address: [address] [place] [address] Performed By: #### 5 7021-8 ####[facility] LABORATORYCLIA [id number] [address] Hematocrit (Bld) [Volume fraction] 27.5 % Low 39.0-51.0 [facility] Comment on above: Order Comment: Speci men Type: BLOOD SPECIMENOrdering Facility: [facility] Address: [address] [place] [address] Performed By: #### 5 7021-8 ####[facility] LABORATORYCLIA [id number] [address] Hemoglobin (Bld) [Mass/Vol] 8.4 g/dL Low 13.0-17.0 [facility] Comment on above: Order Comment: Speci men Type: BLOOD SPECIMENOrdering Facility: [facility] Address: [address] [place] [address] Performed By: #### 5 7021-8 ####[facility] LABORATORYCLIA [id number] [address] IMMATURE GRAN % 0.5 % Normal [facility] Comment on above: Order Comment: Speci men Type: BLOOD SPECIMENOrdering Facility: [facility] Address: [address] [place] [address] Performed By: #### 5 7021-8 ####[facility] LABORATORYCLIA [id number] [place] [address] [place] IMMATURE GRAN ABS 0.04 k/uL Normal <0.10 [facility] Comment on above: Order Comment: Speci men Type: BLOOD SPECIMENOrdering Facility: [facility] Address: [address] [place] [address] Performed By: #### 5 7021-8 ####[facility]ORATORYCLIA [id number] [address] Lymphocytes (Bld) [#/Vol] 1.55 10*3/uL Normal 1.00-4.00 [facility] Comment on above: Order Comment: Speci men Type: BLOOD SPECIMENOrdering Facility: [facility] Address: [address] [place] [address] Performed By: #### 5 7021-8 ####[facility] LABORATORYCLIA [id number] [address] Lymphocytes/100 WBC (Bld) 18.7 % Normal [facility] Comment on above: Order Comment: Speci men Type: BLOOD SPECIMENOrdering Facility: [facility] Address: [address] [place] [address] Performed By: #### 5 7021-8 ####[facility]ORATORYCLIA [id number] [address] MCH (RBC) [Entitic mass] 28.9 pg Normal 26.0-34.0 [facility] Comment on above: Order Comment: Speci men Type: BLOOD SPECIMENOrdering Facility: [facility] Address: [address] [place] [address] Performed By: #### 5 7021-8 ####[facility] LABORATORYCLIA [id number] [address] MCHC (RBC) [Mass/Vol] 30.5 g/dL Normal 30.5-36.0 [facility] Comment on above: Order Comment: Speci men Type: BLOOD SPECIMENOrdering Facility: [facility] Address: [address] [place] [address] Performed By: #### 5 7021-8 ####[facility]ATORYCLIA [id number] [place] [address] [place] MCV (RBC) [Entitic vol] 94.5 fL Normal 80.0-100.0 [facility] Comment on above: Order Comment: Speci men Type: BLOOD SPECIMENOrdering Facility: [facility] Address: [address] [place] [address] Performed By: #### 5 7021-8 ####[facility] LABORATORYCLIA [id number] [place] [address] [place] Monocytes (Bld) [#/Vol] 0.47 10*3/uL Normal <0.87 [facility] Comment on above: Order Comment: Speci men Type: BLOOD SPECIMENOrdering Facility: [facility] Address: [address] [place] [address] Performed By: #### 5 7021-8 ####[facility]ORATORYCLIA [id number] [address] Monocytes/100 WBC (Bld) 5.7 % Normal [facility] Comment on above: Order Comment: Speci men Type: BLOOD SPECIMENOrdering Facility: [facility] Address: [address] [place] [address] Performed By: #### 5 7021-8 ####[facility] LABORATORYCLIA [id number] [place] [address] [place] Neutrophils (Bld) [#/Vol] 5.92 10*3/uL Normal 1.45-7.50 [facility] Comment on above: Order Comment: Speci men Type: BLOOD SPECIMENOrdering Facility: [facility] Address: [address] [place] [address] Performed By: #### 5 7021-8 ####[facility]ORATORYCLIA [id number] [address] [place] Neutrophils/100 WBC (Bld) 71.2 % Normal [facility] Comment on above: Order Comment: Speci men Type: BLOOD SPECIMENOrdering Facility: [facility] Address: [address] [address] Performed By: #### 5 7021-8 ####[facility]ORATORYCLIA [id number] [address] Nucleated RBC (Bld) [#/Vol] 10*3/uL Normal <0.01 [facility] Comment on above: Order Comment: Speci men Type: BLOOD SPECIMENOrdering Facility: [facility] Address: [address] [place] [address] Performed By: #### 5 7021-8 ####[facility] LABORATORYCLIA [id number] [address] OF [facility] Nucleated RBC/100 WBC (Bld) [Ratio] 0.0 /100 WBC Normal [facility] Comment on above: Order Comment: Speci men Type: BLOOD SPECIMENOrdering Facility: [facility] Address: [address] [place] [address] Performed By: #### 5 7021-8 ####[facility]ORATORYCLIA [id number] [address] [place] Platelet mean volume (Bld) [Entitic vol] 9.9 fL Normal 9.0-12.7 [facility] Comment on above: Order Comment: Speci men Type: BLOOD SPECIMENOrdering Facility: [facility] Address: [address] [place] [address] Performed By: #### 5 7021-8 ####[facility]ORATORYCLIA [id number] [address] [place] Platelets (Bld) [#/Vol] 203 10*3/uL Normal 150-400 [facility] Comment on above: Order Comment: Speci men Type: BLOOD SPECIMENOrdering Facility: [facility] Address: [address] [place] [address] Performed By: #### 5 7021-8 ####[facility]ORATORYCLIA [id number] [address] [place] RBC (Bld) [#/Vol] 2.91 10*6/uL Low 4.20-6.00 [facility] Comment on above: Order Comment: Speci men Type: BLOOD SPECIMENOrdering Facility: [facility] Address: [address] [place] [address] Performed By: #### 5 7021-8 ####[facility]ORATORYCLIA [id number] [place] [address] [place] [facility] WBC (Bld) [#/Vol] 8.31 10*3/uL Normal 3.70-11.00 [facility] Comment on above: Order Comment: Speci men Type: BLOOD SPECIMENOrdering Facility: [facility] Address: [address] [place] [address] Performed By: #### 5 7021-8 ####[facility]ORATORYCLIA [id number] [address] STATES [facility] aPTT PPPon 08-13-2021 aPTT Coag (PPP) [Time] 69.7 s High 23.0-32.4 [facility] Comment on above: Order Comment: Speci men Type: BLOOD SPECIMENOrdering Facility: [facility] Address: [address] [place] [address] Performed By: #### 1 4979-9 ####[facility] LABORATORYCLIA [id number] [address] STATES OF [facility] aPTT Coag (PPP) [Time] 70.6 s High 23.0-32.4 [facility] Comment on above: Order Comment: Speci men Type: BLOOD SPECIMENOrdering Facility: [facility] Address: [address] [place] [address] Performed By: #### 1 4979-9 ####[facility] LABORATORYCLIA [id number] [address] [place] ALLIED HEALTHon 08-12-2021 ALLIED HEALTH Normal [facility] ALLIED HEALTH Normal [facility] Basic metabolic 2000 panelon 08-12-2021 Anion gap [Moles/Vol] 7 mmol/L Low 9-18 [facility] Comment on above: Order Comment: Speci men Type: BLOOD SPECIMENOrdering Facility: [facility] Address: [address] [place], [place] [address] Performed By: #### 2 4321-2, , 2776-05 ####[facility] LABORATORYCLIA [id number] [place] [address] [place] Calcium [Mass/Vol] 8.8 mg/dL Normal 8.5-10.2 [facility] Comment on above: Order Comment: Speci men Type: BLOOD SPECIMENOrdering Facility: [facility] Address: [address] [place] [address] Performed By: #### 2 4321-2, , 2776-05 ####[facility] LABORATORYCLIA [id number] [place] [address] [place] Chloride [Moles/Vol] 96 mmol/L Low 97-105 [facility] Comment on above: Order Comment: Speci men Type: BLOOD SPECIMENOrdering Facility: [facility] Address: [address] [place], [place] [address] Performed By: #### 2 4321-2, , 2776-05 ####[facility]ORATORYCLIA [id number] [place] [address] [place] CO2 [Moles/Vol] 32 mmol/L High 22-30 [facility] Comment on above: Order Comment: Speci men Type: BLOOD SPECIMENOrdering Facility: [facility] Address: [address] [place], [place] [address] Performed By: #### 2 4321-2, , 2776-05 ####[facility] LABORATORYCLIA [id number] [place] [address] [place] Creatinine [Mass/Vol] 0.52 mg/dL Low 0.73-1.22 [facility] Comment on above: Order Comment: Speci men Type: BLOOD SPECIMENOrdering Facility: [facility] Address: [address] [place], [place] [address] Performed By: #### 2 4321-2, 47082-4, 2776-1 ####[facility] [id number] [address] [place] ESTIMATED GLOMERULAR FILTRATION RATE 109 mL/min/1.73m??? Normal >=60 [facility] Comment on above: Order Comment: Shira feldman Type: BLOOD SPECIMENOrdering Facility: [facility] Address: [address] [place] [address] Result Comment: Luzmaria mated Glomerular Filtration Rate [...] By: #### 2 4321-2, , 2776-05 ####[facility]ITALCLIA [id number] [place] [address] [place] Glucose [Mass/Vol] 119 mg/dL High 74-99 [facility] Comment on above: Order Comment: Shira feldman Type: BLOOD SPECIMENOrdering Facility: [facility] Address: [address] [place] [address] Result Comment: The [place] [employer] (ADA) provides guidance for cutoff [...] Standards of Medical Care in Diabetes 2016, [place] [employer]. Diabetes Care. 2016.39(Suppl 1). Performed By: #### 2 4321-2, , 2776-1 ####[facility]ITALCLIA [id number] [place] [address] [place] Potassium [Moles/Vol] 3.7 mmol/L Normal 3.7-5.1 [facility] Comment on above: Order Comment: Speci men Type: BLOOD SPECIMENOrdering Facility: [facility] Address: [address] [place] [address] Performed By: #### 2 4321-2, , 2776-05 ####[facility] LABORATORYCLIA [id number] [place] [address] [place] Sodium [Moles/Vol] 135 mmol/L Low 136-144 [facility] Comment on above: Order Comment: Speci men Type: BLOOD SPECIMENOrdering Facility: [facility] Address: [address] [place] [address] Performed By: #### 2 4321-2, , 2776- ####[facility] LABORATORYCLIA [id number] [address] [place] Urea nitrogen [Mass/Vol] 20 mg/dL Normal 9-24 [facility] Comment on above: Order Comment: Speci men Type: BLOOD SPECIMENOrdering Facility: [facility] Address: [address] [place] [address] Performed By: #### 2 4321-2, , 27711-04 ####[facility] LABORATORYCLIA [id number] [address] [place] CASE MANAGEMon 08-12-2021 CASE MANAGEM Normal [facility] CBC W Auto Differential pane l (Bld)on 08-12-2021 Basophils (Bld) [#/Vol] 0.04 10*3/uL Normal <0.11 [facility] Comment on above: Order Comment: Speci men Type: BLOOD SPECIMENOrdering Facility: [facility] Address: [address] [place] [address] Performed By: #### 5 7021-8 ####[facility] LABORATORYCLIA [id number] [address] [place] Basophils/100 WBC (Bld) 0.5 % Normal [facility] Comment on above: Order Comment: Speci men Type: BLOOD SPECIMENOrdering Facility: [facility] Address: [address] [place] [address] Performed By: #### 5 7021-8 ####[facility] LABORATORYCLIA [id number] [address] [place] Differential cell count method Nom (Bld) Auto Normal [facility] Comment on above: Order Comment: Speci men Type: BLOOD SPECIMENOrdering Facility: [facility] Address: [address] [place] [address] Performed By: #### 5 7021-8 ####[facility] LABORATORYCLIA [id number] [address] [place] Eosinophils (Bld) [#/Vol] 0.19 10*3/uL Normal <0.46 [facility] Comment on above: Order Comment: Speci men Type: BLOOD SPECIMENOrdering Facility: [facility] Address: [address] [place] [address] Performed By: #### 5 7021-8 ####[facility] LABORATORYCLIA [id number] [address] [place] Eosinophils/100 WBC (Bld) 2.3 % Normal [facility] Comment on above: Order Comment: Speci men Type: BLOOD SPECIMENOrdering Facility: [facility] Address: [address] [place] [address] Performed By: #### 5 7021-8 ####[facility] LABORATORYCLIA [id number] [address] [place] Erythrocyte distribution width (RBC) [Ratio] 17.1 % High 11.5-15.0 [facility] Comment on above: Order Comment: Speci men Type: BLOOD SPECIMENOrdering Facility: [facility] Address: [address] [place] [address] Performed By: #### 5 7021-8 ####[facility] LABORATORYCLIA [id number] [address] Hematocrit (Bld) [Volume fraction] 25.3 % Low 39.0-51.0 [facility] Comment on above: Order Comment: Speci men Type: BLOOD SPECIMENOrdering Facility: [facility] Address: [address] [place] [address] Performed By: #### 5 7021-8 ####[facility] LABORATORYCLIA [id number] [address] Hemoglobin (Bld) [Mass/Vol] 7.9 g/dL Low 13.0-17.0 [facility] Comment on above: Order Comment: Speci men Type: BLOOD SPECIMENOrdering Facility: [facility] Address: [address] [place] [address] Performed By: #### 5 7021-8 ####[facility] LABORATORYCLIA [id number] [address] IMMATURE GRAN % 0.5 % Normal [facility] Comment on above: Order Comment: Speci men Type: BLOOD SPECIMENOrdering Facility: [facility] Address: [address] [place] [address] Performed By: #### 5 7021-8 ####[address] [facility] [facility] LABORATORYCLIA [id number] [address] IMMATURE GRAN ABS 0.04 k/uL Normal <0.10 [facility] Comment on above: Order Comment: Speci men Type: BLOOD SPECIMENOrdering Facility: [facility] Address: [address] [place] [address] Performed By: #### 5 7021-8 ####[facility] LABORATORYCLIA [id number] [address] Lymphocytes (Bld) [#/Vol] 1.69 10*3/uL Normal 1.00-4.00 [facility] Comment on above: Order Comment: Speci men Type: BLOOD SPECIMENOrdering Facility: [facility] Address: [address] [place] [address] Performed By: #### 5 7021-8 ####[facility] LABORATORYCLIA [id number] [address] Lymphocytes/100 WBC (Bld) 20.1 % Normal [facility] Comment on above: Order Comment: Speci men Type: BLOOD SPECIMENOrdering Facility: [facility] Address: [address] [place] [address] Performed By: #### 5 7021-8 ####[facility] LABORATORYCLIA [id number] [address] MCH (RBC) [Entitic mass] 28.5 pg Normal 26.0-34.0 [facility] Comment on above: Order Comment: Speci men Type: BLOOD SPECIMENOrdering Facility: [facility] Address: [address] [place] [address] Performed By: #### 5 7021-8 ####[facility] LABORATORYCLIA [id number] [address] MCHC (RBC) [Mass/Vol] 31.2 g/dL Normal 30.5-36.0 [facility] Comment on above: Order Comment: Speci men Type: BLOOD SPECIMENOrdering Facility: [facility] Address: [address] [place] [address] Performed By: #### 5 7021-8 ####[facility] LABORATORYCLIA [id number] [address] MCV (RBC) [Entitic vol] 91.3 fL Normal 80.0-100.0 [facility] Comment on above: Order Comment: Speci men Type: BLOOD SPECIMENOrdering Facility: [facility] Address: [address] [place] [address] Performed By: #### 5 7021-8 ####[facility] LABORATORYCLIA [id number] [address] Monocytes (Bld) [#/Vol] 0.53 10*3/uL Normal <0.87 [facility] Comment on above: Order Comment: Speci men Type: BLOOD SPECIMENOrdering Facility: [facility] Address: [address] [place] [address] Performed By: #### 5 7021-8 ####[facility]ORATORYCLIA [id number] [address] [place] Monocytes/100 WBC (Bld) 6.3 % Normal [facility] Comment on above: Order Comment: Speci men Type: BLOOD SPECIMENOrdering Facility: [facility] Address: [address] [place] [address] Performed By: #### 5 7021-8 ####[facility] LABORATORYCLIA [id number] [address] [place] Neutrophils (Bld) [#/Vol] 5.90 10*3/uL Normal 1.45-7.50 [facility] Comment on above: Order Comment: Speci men Type: BLOOD SPECIMENOrdering Facility: [facility] Address: [address] [place] [address] Performed By: #### 5 7021-8 ####[facility] LABORATORYCLIA [id number] [address] [place] Neutrophils/100 WBC (Bld) 70.3 % Normal [facility] Comment on above: Order Comment: Speci men Type: BLOOD SPECIMENOrdering Facility: [facility] Address: [address] [place] [address] Performed By: #### 5 7021-8 ####[facility]ORATORYCLIA [id number] [place] [address] [place] Nucleated RBC (Bld) [#/Vol] 10*3/uL Normal <0.01 [facility] Comment on above: Order Comment: Speci men Type: BLOOD SPECIMENOrdering Facility: [facility] Address: [address] [place] [address] Performed By: #### 5 7021-8 ####[facility]ORATORYCLIA [id number] [place] [address] [place] Nucleated RBC/100 WBC (Bld) [Ratio] 0.0 /100 WBC Normal [facility] Comment on above: Order Comment: Speci men Type: BLOOD SPECIMENOrdering Facility: [facility] Address: [address] [place] [address] Performed By: #### 5 7021-8 ####[facility] LABORATORYCLIA [id number] [place] [address] [place] Platelet mean volume (Bld) [Entitic vol] 9.8 fL Normal 9.0-12.7 [facility] Comment on above: Order Comment: Speci men Type: BLOOD SPECIMENOrdering Facility: [facility] Address: [address] [place] [address] Performed By: #### 5 7021-8 ####[facility] LABORATORYCLIA [id number] [address] [place] Platelets (Bld) [#/Vol] 164 10*3/uL Normal 150-400 [facility] Comment on above: Order Comment: Speci men Type: BLOOD SPECIMENOrdering Facility: [facility] Address: [address] [place] [address] Performed By: #### 5 7021-8 ####[facility]ORATORYCLIA [id number] [place] [address] [place] RBC (Bld) [#/Vol] 2.77 10*6/uL Low 4.20-6.00 [facility] Comment on above: Order Comment: Speci men Type: BLOOD SPECIMENOrdering Facility: [facility] Address: [address] [place] [address] Performed By: #### 5 7021-8 ####[facility] LABORATORYCLIA [id number] [place] [address] [place] WBC (Bld) [#/Vol] 8.39 10*3/uL Normal 3.70-11.00 [facility] Comment on above: Order Comment: Speci men Type: BLOOD SPECIMENOrdering Facility: [facility] Address: [address] [place] [address] Performed By: #### 5 7021-8 ####[facility] LABORATORYCLIA [id number] [address] BRAIN WO IVCONon 08-13-19 CT BRAIN WO IVCON Normal [facility] CT BRAIN WO IVCON Normal [facility] Magnesium SerPl-mCncon 08-12 Magnesium [Mass/Vol] 2.0 mg/dL Normal 1.7-2.3 [facility] Comment on above: Order Comment: Speci men Type: BLOOD SPECIMENOrdering Facility: [facility] Address: [address] [place] [address] Performed By: #### 2 4321-2, 34052-4, 2777-1 ####[facility] LABORATORYCLIA [id number] [address] Phosphate SerPl-mCncon 08-12 Phosphate [Mass/Vol] 2.9 mg/dL Normal 2.7-4.8 [facility] Comment on above: Order Comment: Speci men Type: BLOOD SPECIMENOrdering Facility: [facility] Address: [address] [place] [address] Performed By: #### 2 4321-2, 93486-0, 2777-1 ####[facility] LABORATORYCLIA [id number] [address] [place] THERAPY NTon 08-12-2021 THERAPY NT Normal [facility] THERAPY NT Normal [facility] aPTT PPPon 08-12-2021 aPTT Coag (PPP) [Time] 94.2 s High 23.0-32.4 [facility] Comment on above: Order Comment: Speci men Type: BLOOD SPECIMENOrdering Facility: [facility] Address: [address] [place] [address] Performed By: #### 1 4979-9 ####[facility] LABORATORYCLIA [id number] [address] aPTT Coag (PPP) [Time] 84.4 s High 23.0-32.4 [facility] Comment on above: Order Comment: Speci men Type: BLOOD SPECIMENOrdering Facility: [facility] Address: [address] [place] [address] Performed By: #### 1 4979-9 ####[facility] LABORATORYCLIA [id number] [address] aPTT Coag (PPP) [Time] 71.3 s High 23.0-32.4 [facility] Comment on above: Order Comment: Speci men Type: BLOOD SPECIMENOrdering Facility: [facility] Address: [address] [place] [address] Performed By: #### 1 4979-9 ####[facility] LABORATORYCLIA [id number] [address] OF [facility] ALLIED HEALTHon 08-11-2021 ALLIED HEALTH Normal [facility] CBC W Auto Differential pane l (Bld)on 08-11-2021 Basophils (Bld) [#/Vol] 10*3/uL Normal <0.11 [facility] Comment on above: Order Comment: Speci men Type: BLOOD SPECIMENOrdering Facility: [facility] Address: [address] [place] [address] Performed By: #### 5 7021-8 ####[facility] LABORATORYCLIA [id number] [address] STATES OF [facility] Basophils/100 WBC (Bld) 0.2 % Normal [facility] Comment on above: Order Comment: Speci men Type: BLOOD SPECIMENOrdering Facility: [facility] Address: [address] [place] [address] Performed By: #### 5 7021-8 ####[facility] LABORATORYCLIA [id number] [address] Differential cell count method Nom (Bld) Auto Normal [facility] Comment on above: Order Comment: Speci men Type: BLOOD SPECIMENOrdering Facility: [facility] Address: [address] [place] [address] Performed By: #### 5 7021-8 ####[facility] LABORATORYCLIA [id number] [address] Eosinophils (Bld) [#/Vol] 0.16 10*3/uL Normal <0.46 [facility] Comment on above: Order Comment: Speci men Type: BLOOD SPECIMENOrdering Facility: [facility] Address: [address] [place] [address] Performed By: #### 5 7021-8 ####[facility]ORATORYCLIA [id number] [address] Eosinophils/100 WBC (Bld) 1.8 % Normal [facility] Comment on above: Order Comment: Speci men Type: BLOOD SPECIMENOrdering Facility: [facility] Address: [address] [place] [address] Performed By: #### 5 7021-8 ####[facility] LABORATORYCLIA [id number] [address] Erythrocyte distribution width (RBC) [Ratio] 17.3 % High 11.5-15.0 [facility] Comment on above: Order Comment: Speci men Type: BLOOD SPECIMENOrdering Facility: [facility] Address: [address] [place] [address] Performed By: #### 5 7021-8 ####[facility]ORATORYCLIA [id number] [address] Hematocrit (Bld) [Volume fraction] 26.6 % Low 39.0-51.0 [facility] Comment on above: Order Comment: Speci men Type: BLOOD SPECIMENOrdering Facility: [facility] Address: [address] [place] [address] Performed By: #### 5 7021-8 ####[facility]ORATORYCLIA [id number] [address] [place] Hemoglobin (Bld) [Mass/Vol] 8.2 g/dL Low 13.0-17.0 [facility] Comment on above: Order Comment: Speci men Type: BLOOD SPECIMENOrdering Facility: [facility] Address: [address] [place] [address] Performed By: #### 5 7021-8 ####[facility]ORYCLIA [id number] [address] IMMATURE GRAN % 0.6 % Normal [facility] Comment on above: Order Comment: Speci men Type: BLOOD SPECIMENOrdering Facility: [facility] Address: [address] [place] [address] Performed By: #### 5 7021-8 ####[facility] LABORATORYCLIA [id number] [address] OF [facility] IMMATURE GRAN ABS 0.05 k/uL Normal <0.10 [facility] Comment on above: Order Comment: Speci men Type: BLOOD SPECIMENOrdering Facility: [facility] Address: [address] [place] [address] Performed By: #### 5 7021-8 ####[facility]ORATORYCLIA [id number] [address] [place] Lymphocytes (Bld) [#/Vol] 1.40 10*3/uL Normal 1.00-4.00 [facility] Comment on above: Order Comment: Speci men Type: BLOOD SPECIMENOrdering Facility: [facility] Address: [address] [place] [address] Performed By: #### 5 7021-8 ####[facility]ATORYCLIA [id number] [address] Lymphocytes/100 WBC (Bld) 15.8 % Normal [facility] Comment on above: Order Comment: Speci men Type: BLOOD SPECIMENOrdering Facility: [facility] Address: [address] [place] [address] Performed By: #### 5 7021-8 ####[facility]ATORYCLIA [id number] [address] MCH (RBC) [Entitic mass] 28.4 pg Normal 26.0-34.0 [facility] Comment on above: Order Comment: Speci men Type: BLOOD SPECIMENOrdering Facility: [facility] Address: [address] [place] [address] Performed By: #### 5 7021-8 ####[facility]ORATORYCLIA [id number] [address] [place] MCHC (RBC) [Mass/Vol] 30.8 g/dL Normal 30.5-36.0 [facility] Comment on above: Order Comment: Speci men Type: BLOOD SPECIMENOrdering Facility: [facility] Address: [address] [place] [address] Performed By: #### 5 7021-8 ####[facility]ORATORYCLIA [id number] [address] MCV (RBC) [Entitic vol] 92.0 fL Normal 80.0-100.0 [facility] Comment on above: Order Comment: Speci men Type: BLOOD SPECIMENOrdering Facility: [facility] Address: [address] [place] [address] Performed By: #### 5 7021-8 ####[facility]ORATORYCLIA [id number] [address] OF [facility] Monocytes (Bld) [#/Vol] 0.61 10*3/uL Normal <0.87 [facility] Comment on above: Order Comment: Speci men Type: BLOOD SPECIMENOrdering Facility: [facility] Address: [address] [place] [address] Performed By: #### 5 7021-8 ####[facility]ORATORYCLIA [id number] [address] Monocytes/100 WBC (Bld) 6.9 % Normal [facility] Comment on above: Order Comment: Speci men Type: BLOOD SPECIMENOrdering Facility: [facility] Address: [address] [place] [address] Performed By: #### 5 7021-8 ####[facility]ORATORYCLIA [id number] [address] [place] Neutrophils (Bld) [#/Vol] 6.62 10*3/uL Normal 1.45-7.50 [facility] Comment on above: Order Comment: Speci men Type: BLOOD SPECIMENOrdering Facility: [facility] Address: [address] [address] Performed By: #### 5 7021-8 ####[facility]ORATORYCLIA [id number] [address] [place] Neutrophils/100 WBC (Bld) 74.7 % Normal [facility] Comment on above: Order Comment: Speci men Type: BLOOD SPECIMENOrdering Facility: [facility] Address: [address] [place] [address] Performed By: #### 5 7021-8 ####[facility]ORATORYCLIA [id number] [address] [place] Nucleated RBC (Bld) [#/Vol] 10*3/uL Normal <0.01 [facility] Comment on above: Order Comment: Speci men Type: BLOOD SPECIMENOrdering Facility: [facility] Address: [address] [place] [address] Performed By: #### 5 7021-8 ####[facility]ORATORYCLIA [id number] [address] [place] Nucleated RBC/100 WBC (Bld) [Ratio] 0.0 /100 WBC Normal [facility] Comment on above: Order Comment: Speci men Type: BLOOD SPECIMENOrdering Facility: [facility] Address: [facility] [place] [address] Performed By: #### 5 7021-8 ####[facility]ORATORYCLIA [id number] [address] [place] Platelet mean volume (Bld) [Entitic vol] 9.8 fL Normal 9.0-12.7 [facility] Comment on above: Order Comment: Speci men Type: BLOOD SPECIMENOrdering Facility: [facility] Address: [address] [place] [address] Performed By: #### 5 7021-8 ####[facility] LABORATORYCLIA [id number] [address] OF [facility] Platelets (Bld) [#/Vol] 157 10*3/uL Normal 150-400 [facility] Comment on above: Order Comment: Speci men Type: BLOOD SPECIMENOrdering Facility: [facility] Address: [address] [place] [address] Performed By: #### 5 7021-8 ####[facility]ORATORYCLIA [id number] [address] RBC (Bld) [#/Vol] 2.89 10*6/uL Low 4.20-6.00 [facility] Comment on above: Order Comment: Speci men Type: BLOOD SPECIMENOrdering Facility: [facility] Address: [address] [place] [address] Performed By: #### 5 7021-8 ####[facility]ORATORYCLIA [id number] [address] WBC (Bld) [#/Vol] 8.86 10*3/uL Normal 3.70-11.00 [facility] Comment on above: Order Comment: Speci men Type: BLOOD SPECIMENOrdering Facility: [facility] Address: [address] [place] [address] Performed By: #### 5 7021-8 ####[facility]ORATORYCLIA [id number] [address] CBC panel Auto (Bld)on 08-11 Erythrocyte distribution width (RBC) [Ratio] 17.2 % High 11.5-15.0 [facility] Comment on above: Order Comment: Speci men Type: BLOOD SPECIMENOrdering Facility: [facility] Address: [address] [place] [address] Performed By: #### 5 8410-2 ####[facility]ORATORYCLIA [id number] [address] Hematocrit (Bld) [Volume fraction] 27.0 % Low 39.0-51.0 [facility] Comment on above: Order Comment: Speci men Type: BLOOD SPECIMENOrdering Facility: [facility] Address: [address] [place] [address] Performed By: #### 5 8410-2 ####[facility]ORATORYCLIA [id number] [address] Hemoglobin (Bld) [Mass/Vol] 8.3 g/dL Low 13.0-17.0 [facility] Comment on above: Order Comment: Speci men Type: BLOOD SPECIMENOrdering Facility: [facility] Address: [address] [place] [address] Performed By: #### 5 8410-2 ####[facility]ORATORYCLIA [id number] [address] MCH (RBC) [Entitic mass] 28.7 pg Normal 26.0-34.0 [facility] Comment on above: Order Comment: Speci men Type: BLOOD SPECIMENOrdering Facility: [facility] Address: [address] [place] [address] Performed By: #### 5 8410-2 ####[facility]ORATORYCLIA [id number] [address] [place] MCHC (RBC) [Mass/Vol] 30.7 g/dL Normal 30.5-36.0 [facility] Comment on above: Order Comment: Speci men Type: BLOOD SPECIMENOrdering Facility: [facility] Address: [address] [place] [address] Performed By: #### 5 8410-2 ####[facility]ORATORYCLIA [id number] [address] [place] MCV (RBC) [Entitic vol] 93.4 fL Normal 80.0-100.0 [facility] Comment on above: Order Comment: Speci men Type: BLOOD SPECIMENOrdering Facility: [facility] Address: [address] [place] [address] Performed By: #### 5 8410-2 ####[facility]ORATORYCLIA [id number] [address] [place] Nucleated RBC (Bld) [#/Vol] 10*3/uL Normal <0.01 [facility] Comment on above: Order Comment: Speci men Type: BLOOD SPECIMENOrdering Facility: [facility] Address: [address] [place] [address] Performed By: #### 5 8410-2 ####[facility]ORATORYCLIA [id number] [address] [place] Platelet mean volume (Bld) [Entitic vol] 9.8 fL Normal 9.0-12.7 [facility] Comment on above: Order Comment: Speci men Type: BLOOD SPECIMENOrdering Facility: [facility] Address: [address] [place] [address] Performed By: #### 5 8410-2 ####[facility] LABORATORYCLIA [id number] [address] [place] Platelets (Bld) [#/Vol] 169 10*3/uL Normal 150-400 [facility] Comment on above: Order Comment: Speci men Type: BLOOD SPECIMENOrdering Facility: [facility] Address: [address] Performed By: #### 5 8410-2 ####[facility] LABORATORYCLIA [id number] [address] [place] RBC (Bld) [#/Vol] 2.89 10*6/uL Low 4.20-6.00 [facility] Comment on above: Order Comment: Speci men Type: BLOOD SPECIMENOrdering Facility: [facility] Address: [address] [place] [address] Performed By: #### 5 8410-2 ####[facility] LABORATORYCLIA [id number] [address] STATES OF [facility] WBC (Bld) [#/Vol] 9.03 10*3/uL Normal 3.70-11.00 [facility] Comment on above: Order Comment: Shira francia Type: BLOOD SPECIMENOrdering Facility: [facility] Address: [address] [place] [address] Performed By: #### 5 8410-2 ####[facility] [id number] [address] BRAIN WO IVCONon 08-12-19 CT BRAIN WO IVCON Normal [facility] PT panel Coag (PPP)on 2021 INR Coag (PPP) [Relative time] 1.0 {INR} Normal 0.9-1.3 [facility] Comment on above: Order Comment: Shira feldamn Type: BLOOD SPECIMENOrdering Facility: [facility] Address: [address] [place] [address] Result Comment: Yris min K Antagonist (VKA) Therapeutic Range: INR 2 to 3 (Target INR of 2.5)Note: For patients treated with VKA drugs, such as warfarin, the [place] [employer] 2012 Guideline recommends [...] al. Chest 2012, 141:7S-47SNishimpatricia RA, et al. [employer] 2017, 70: 252-289 Performed By: #### 1 4979-9, 43752-9 ####[facility] LABORATORYCLIA [id number] [address] OF [facility] PT Coag (PPP) [Time] 11.4 s Normal 9.7-13.0 [facility] Comment on above: Order Comment: Speci men Type: BLOOD SPECIMENOrdering Facility: [facility] Address: [address] [place] [address] Performed By: #### 1 4979-9, 33232-5 ####[facility] LABORATORYCLIA [id number] [address] OF [facility] THERAPY NTon 08-11-2021 THERAPY NT Normal [facility] US DVT LOWER BILon 2 US DVT LOWER RAINER Normal [facility] US DVT UPPER BILon 2 US DVT UPPER RAINER Normal [facility] aPTT PPPon 08-11-2021 aPTT Coag (PPP) [Time] 26.9 s Normal 23.0-32.4 [facility] Comment on above: Order Comment: Speci men Type: BLOOD SPECIMENOrdering Facility: [facility] Address: [address] [place] [address] Performed By: #### 1 4979-9, 55419-1 ####[facility] LABORATORYCLIA [id number] [address] OF [facility] Basic metabolic 2000 panelon 08-10-2021 Anion gap [Moles/Vol] 11 mmol/L Normal 9-18 [facility] Comment on above: Order Comment: Speci men Type: BLOOD SPECIMENOrdering Facility: [facility] Address: [address] [place] [address] Performed By: #### 2 4321-2 ####[facility] LABORATORYCLIA [id number] [address] STATES OF [facility] Calcium [Mass/Vol] 8.7 mg/dL Normal 8.5-10.2 [facility] Comment on above: Order Comment: Speci men Type: BLOOD SPECIMENOrdering Facility: [facility] Address: [address] [place] [address] Performed By: #### 2 4321-2 ####[facility] LABORATORYCLIA [id number] [address] Chloride [Moles/Vol] 98 mmol/L Normal 97-105 [facility] Comment on above: Order Comment: Speci men Type: BLOOD SPECIMENOrdering Facility: [facility] Address: [address] [place] [address] Performed By: #### 2 4321-2 ####[facility] LABORATORYCLIA [id number] [address] CO2 [Moles/Vol] 28 mmol/L Normal 22-30 [facility] Comment on above: Order Comment: Speci men Type: BLOOD SPECIMENOrdering Facility: [facility] Address: [address] [place] [address] Performed By: #### 2 4321-2 ####[facility] LABORATORYCLIA [id number] [address] Creatinine [Mass/Vol] 0.59 mg/dL Low 0.73-1.22 [facility] Comment on above: Order Comment: Speci men Type: BLOOD SPECIMENOrdering Facility: [facility] Address: [address] [place] [address] Performed By: #### 2 4321-2 ####[facility] LABORATORYCLIA [id number] [address] ESTIMATED GLOMERULAR FILTRATION RATE 105 mL/min/1.73m??? Normal >=60 [facility] Comment on above: Order Comment: Speci men Type: BLOOD SPECIMENOrdering Facility: [facility] Address: [address] [place] [address] Result Comment: Luzmaria mated Glomerular Filtration Rate [...] By: #### 2 4321-2 ####[facility] LABORATORYCLIA [id number] [place] [address] [place] Glucose [Mass/Vol] 118 mg/dL High 74-99 [facility] Comment on above: Order Comment: Speci men Type: BLOOD SPECIMENOrdering Facility: [facility] Address: [address] [place] [address] Result Comment: The [place] [employer] (ADA) provides guidance for cutoff [...] Standards of Medical Care in Diabetes 2016, [place] [employer]. Diabetes Care. 2016.39(Suppl 1). Performed By: #### 2 4321-2 ####[facility]ORATORYCLIA [id number] [place] [address] [place] Potassium [Moles/Vol] 3.7 mmol/L Normal 3.7-5.1 [facility] Comment on above: Order Comment: Speci men Type: BLOOD SPECIMENOrdering Facility: [facility] Address: [address] [place] [address] Performed By: #### 2 4321-2 ####[facility] LABORATORYCLIA [id number] [place] [address] [place] Sodium [Moles/Vol] 137 mmol/L Normal 136-144 [facility] Comment on above: Order Comment: Speci men Type: BLOOD SPECIMENOrdering Facility: [facility] Address: [address] [place] [address] Performed By: #### 2 4321-2 ####[facility]ORATORYCLIA [id number] [place] [address] [place] Urea nitrogen [Mass/Vol] 23 mg/dL Normal 9-24 [facility] Comment on above: Order Comment: Speci men Type: BLOOD SPECIMENOrdering Facility: [facility] Address: [address] [place] [address] Performed By: #### 2 4321-2 ####[facility] LABORATORYCLIA [id number] [place] [address] [place] Anion gap [Moles/Vol] 17 mmol/L Normal 9-18 [facility] Comment on above: Order Comment: Speci men Type: BLOOD SPECIMENOrdering Facility: [facility] Address: [address] [place] [address] Performed By: #### 1 9123-9, 2777-1, 94067-2 ####[facility] LABORATORYCLIA [id number] [place] [address] [place] Calcium [Mass/Vol] 7.7 mg/dL Low 8.5-10.2 [facility] Comment on above: Order Comment: Speci men Type: BLOOD SPECIMENOrdering Facility: [facility] Address: [address] [place] [address] Performed By: #### 1 9123-9, 2777-1, 98083-0 ####[facility]ORATORYCLIA [id number] [place] [address] [place] Chloride [Moles/Vol] 86 mmol/L Low 97-105 [facility] Comment on above: Order Comment: Speci men Type: BLOOD SPECIMENOrdering Facility: [facility] Address: [address] Performed By: #### 1 9123-9, 2777-1, 95525-5 ####[facility]ORATORYCLIA [id number] [place] [address] [place] CO2 [Moles/Vol] 24 mmol/L Normal 22-30 [facility] Comment on above: Order Comment: Speci men Type: BLOOD SPECIMENOrdering Facility: [facility] Address: [address] [place] [address] Performed By: #### 1 9123-9, 2777-1, 56557-4 ####[facility]ITALCLIA [id number] [address] STATES OF [facility] Creatinine [Mass/Vol] 0.53 mg/dL Low 0.73-1.22 [facility] Comment on above: Order Comment: Speci men Type: BLOOD SPECIMENOrdering Facility: [facility] Address: [address] [address] Performed By: #### 1 9123-9, 2777-1, 85103-4 ####[facility] CENTERIA [id number] [address] OF [facility] ESTIMATED GLOMERULAR FILTRATION RATE 108 mL/min/1.73m??? Normal >=60 [facility] Comment on above: Order Comment: Speccara feldman Type: BLOOD SPECIMENOrdering Facility: [facility] Address: [address] [address] Result Comment: Luzmaria mated Glomerular Filtration Rate [...] GFR. Performed By: #### 1 9123-9, 2777-1, 72090-7 ####[facility] LABORATORYCLIA [id number] [address] [place] Glucose [Mass/Vol] 455 mg/dL High 74-99 [facility] Comment on above: Order Comment: Speci men Type: BLOOD SPECIMENOrdering Facility: [facility] Address: [address] Result Comment: The [place] Diabetes Association (ADA) provides guidance for cutoff [...] Standards of Medical Care in Diabetes 2016, [place] [employer]. Diabetes Care. 2016.39(Suppl 1). Performed By: #### 1 9123-9, 2777-1, 53430-9 ####[facility] LABORATORYCLIA [id number] [place] [address] [place] Potassium [Moles/Vol] 3.4 mmol/L Low 3.7-5.1 [facility] Comment on above: Order Comment: Shira feldman Type: BLOOD SPECIMENOrdering Facility: [facility] Address: [address] [place] [address] Performed By: #### 1 9123-9, 2777-, 46379-4 ####[facility]ITALCLIA [id number] [address] [place] Sodium [Moles/Vol] 127 mmol/L Low 136-144 [facility] Comment on above: Order Comment: Shira feldman Type: BLOOD SPECIMENOrdering Facility: [facility] Address: [address] [place] [address] Performed By: #### 1 9123-9, 2777-, 09228-3 ####[facility]ORATORYCLIA [id number] [place] [address] [place] Urea nitrogen [Mass/Vol] 21 mg/dL Normal 9-24 [facility] Comment on above: Order Comment: Johni francia Type: BLOOD SPECIMENOrdering Facility: [facility] Address: [address] [place] [address] Performed By: #### 1 9123-9, 2777-, 82595-7 ####[facility]ORATORYCLIA [id number] [place] [address] [place] CASE MANAGEMon 08-10-2021 CASE MANAGEM Normal [facility] CBC W Auto Differential pane l (Bld)on 08-10-2021 Basophils (Bld) [#/Vol] 0.04 10*3/uL Normal <0.11 [facility] Comment on above: Order Comment: Speci men Type: BLOOD SPECIMENOrdering Facility: [facility] Address: [address] [place] [address] Performed By: #### 5 7021-8 ####[facility] LABORATORYCLIA [id number] [address] [place] Basophils/100 WBC (Bld) 0.4 % Normal [facility] Comment on above: Order Comment: Speci men Type: BLOOD SPECIMENOrdering Facility: [facility] Address: [address] [place] [address] Performed By: #### 5 7021-8 ####[facility] LABORATORYCLIA [id number] [address] OF [facility] Differential cell count method Nom (Bld) Auto Normal [facility] Comment on above: Order Comment: Speci men Type: BLOOD SPECIMENOrdering Facility: [facility] Address: [address] [place] [address] Performed By: #### 5 7021-8 ####[facility]ORATORYCLIA [id number] [place] [address] [place] Eosinophils (Bld) [#/Vol] 0.11 10*3/uL Normal <0.46 [facility] Comment on above: Order Comment: Speci men Type: BLOOD SPECIMENOrdering Facility: [facility] Address: [address] [place] [address] Performed By: #### 5 7021-8 ####[facility]ORATORYCLIA [id number] [address] OF [place] Eosinophils/100 WBC (Bld) 1.1 % Normal [facility] Comment on above: Order Comment: Speci men Type: BLOOD SPECIMENOrdering Facility: [facility] Address: [address] [place] [address] Performed By: #### 5 7021-8 ####[facility]ORATORYCLIA [id number] [address] Erythrocyte distribution width (RBC) [Ratio] 17.2 % High 11.5-15.0 [facility] Comment on above: Order Comment: Speci men Type: BLOOD SPECIMENOrdering Facility: [facility] Address: [address] [place] [address] Performed By: #### 5 7021-8 ####[facility] LABORATORYCLIA [id number] [address] Hematocrit (Bld) [Volume fraction] 25.5 % Low 39.0-51.0 [facility] Comment on above: Order Comment: Speci men Type: BLOOD SPECIMENOrdering Facility: [facility] Address: [address] [place] [address] Performed By: #### 5 7021-8 ####[facility]ORATORYCLIA [id number] [address] Hemoglobin (Bld) [Mass/Vol] 7.9 g/dL Low 13.0-17.0 [facility] Comment on above: Order Comment: Speci men Type: BLOOD SPECIMENOrdering Facility: [facility] Address: [address] [place] [address] Performed By: #### 5 7021-8 ####[facility]ORATORYCLIA [id number] [address] IMMATURE GRAN % 0.4 % Normal [facility] Comment on above: Order Comment: Speci men Type: BLOOD SPECIMENOrdering Facility: [facility] Address: [address] [place] [address] Performed By: #### 5 7021-8 ####[facility]ORATORYCLIA [id number] [address] IMMATURE GRAN ABS 0.04 k/uL Normal <0.10 [facility] Comment on above: Order Comment: Speci men Type: BLOOD SPECIMENOrdering Facility: [facility] Address: [address] [place] [address] Performed By: #### 5 7021-8 ####[facility] LABORATORYCLIA [id number] [address] OF [facility] Lymphocytes (Bld) [#/Vol] 1.66 10*3/uL Normal 1.00-4.00 [facility] Comment on above: Order Comment: Speci men Type: BLOOD SPECIMENOrdering Facility: [facility] Address: [address] [place] [address] Performed By: #### 5 7021-8 ####[facility]ORATORYCLIA [id number] [address] Lymphocytes/100 WBC (Bld) 16.2 % Normal [facility] Comment on above: Order Comment: Speci men Type: BLOOD SPECIMENOrdering Facility: [facility] Address: [address] [place] [address] Performed By: #### 5 7021-8 ####[facility]ORATORYCLIA [id number] [address] OF [facility] MCH (RBC) [Entitic mass] 28.5 pg Normal 26.0-34.0 [facility] Comment on above: Order Comment: Speci men Type: BLOOD SPECIMENOrdering Facility: [facility] Address: [address] [place] [address] Performed By: #### 5 7021-8 ####[facility]ORATORYCLIA [id number] [address] OF [facility] MCHC (RBC) [Mass/Vol] 31.0 g/dL Normal 30.5-36.0 [facility] Comment on above: Order Comment: Speci men Type: BLOOD SPECIMENOrdering Facility: [facility] Address: [address] [place] [address] Performed By: #### 5 7021-8 ####[facility]ORATORYCLIA [id number] [address] MCV (RBC) [Entitic vol] 92.1 fL Normal 80.0-100.0 [facility] Comment on above: Order Comment: Speci men Type: BLOOD SPECIMENOrdering Facility: [facility] Address: [address] [place] [address] Performed By: #### 5 7021-8 ####[facility]ATORYCLIA [id number] [address] [place] Monocytes (Bld) [#/Vol] 0.51 10*3/uL Normal <0.87 [facility] Comment on above: Order Comment: Speci men Type: BLOOD SPECIMENOrdering Facility: [facility] Address: [address] [place] [address] Performed By: #### 5 7021-8 ####[facility]ORATORYCLIA [id number] [address] [place] Monocytes/100 WBC (Bld) 5.0 % Normal [facility] Comment on above: Order Comment: Speci men Type: BLOOD SPECIMENOrdering Facility: [facility] Address: [address] [place] [address] Performed By: #### 5 7021-8 ####[facility]ATORYCLIA [id number] [address] [place] Neutrophils (Bld) [#/Vol] 7.91 10*3/uL High 1.45-7.50 [facility] Comment on above: Order Comment: Speci men Type: BLOOD SPECIMENOrdering Facility: [facility] Address: [address] [place] [address] Performed By: #### 5 7021-8 ####[facility]ATORYCLIA [id number] [address] [place] Neutrophils/100 WBC (Bld) 76.9 % Normal [facility] Comment on above: Order Comment: Speci men Type: BLOOD SPECIMENOrdering Facility: [facility] Address: [address] [place] [address] Performed By: #### 5 7021-8 ####[facility]ORATORYCLIA [id number] [address] [place] Nucleated RBC (Bld) [#/Vol] 10*3/uL Normal <0.01 [facility] Comment on above: Order Comment: Speci men Type: BLOOD SPECIMENOrdering Facility: [facility] Address: [address] [place] [address] Performed By: #### 5 7021-8 ####[facility]ORATORYCLIA [id number] [address] OF [place] Nucleated RBC/100 WBC (Bld) [Ratio] 0.0 /100 WBC Normal [facility] Comment on above: Order Comment: Speci men Type: BLOOD SPECIMENOrdering Facility: [facility] Address: [address] [place] [address] Performed By: #### 5 7021-8 ####[facility]ORATORYCLIA [id number] [address] OF [place] Platelet mean volume (Bld) [Entitic vol] 10.3 fL Normal 9.0-12.7 [facility] Comment on above: Order Comment: Speci men Type: BLOOD SPECIMENOrdering Facility: [facility] Address: [address] [place] [address] Performed By: #### 5 7021-8 ####[facility]ORATORYCLIA [id number] [address] [place] Platelets (Bld) [#/Vol] 152 10*3/uL Normal 150-400 [facility] Comment on above: Order Comment: Speci men Type: BLOOD SPECIMENOrdering Facility: [facility] Address: [address] [place] [address] Performed By: #### 5 7021-8 ####[facility]ORATORYCLIA [id number] [address] OF [place] RBC (Bld) [#/Vol] 2.77 10*6/uL Low 4.20-6.00 [facility] Comment on above: Order Comment: Speci men Type: BLOOD SPECIMENOrdering Facility: [facility] Address: [address] [place] [address] Performed By: #### 5 7021-8 ####[facility]ORATORYCLIA [id number] [address] WBC (Bld) [#/Vol] 10.27 10*3/uL Normal 3.70-11.00 [facility] Comment on above: Order Comment: Speci men Type: BLOOD SPECIMENOrdering Facility: [facility] Address: [address] [place] [address] Performed By: #### 5 7021-8 ####[facility]ORATORYCLIA [id number] [address] Magnesium SerPl-mCncon 08-10 Magnesium [Mass/Vol] 1.8 mg/dL Normal 1.7-2.3 [facility] Comment on above: Order Comment: Speci men Type: BLOOD SPECIMENOrdering Facility: [facility] Address: [address] [place] [address] Performed By: #### 1 9123-9, 2777-1, 16147-0 ####[facility]ORATORYCLIA [id number] [address] NURSING PROGon 08-10-2021 NURSING PROG Normal [facility] NURSING PROG Normal [facility] NUTRITIONon 08-10-2021 NUTRITION Normal [facility] Phosphate SerPl-mCncon 08-10 Phosphate [Mass/Vol] 3.7 mg/dL Normal 2.7-4.8 [facility] Comment on above: Order Comment: Speci men Type: BLOOD SPECIMENOrdering Facility: [facility] Address: [address] [place] [address] Performed By: #### 1 9123-9, 2777-1, 04735-6 ####[facility]ATORYCLIA [id number] [address] [place] ALLIED HEALTHon 08-09-2021 ALLIED HEALTH Normal [facility] ANES POSTPROC EVALon 022 ANES POSTPROC EVAL Normal [facility] ANES PRE-OPon 08-09-2021 ANES PRE-OP Normal [facility] BRIEF OP NOTon 08-09-2021 BRIEF OP NOT Normal [facility] Basic metabolic 2000 panelon 08-09-2021 Anion gap [Moles/Vol] 8 mmol/L Low 9-18 [facility] Comment on above: Order Comment: Speci men Type: BLOOD SPECIMENOrdering Facility: [facility] Address: [address] [place] [address] Performed By: #### 2 4321-2, , 2776-05 ####[facility]ORATORYCLIA [id number] [place] [address] [place] Calcium [Mass/Vol] 9.2 mg/dL Normal 8.5-10.2 [facility] Comment on above: Order Comment: Speci men Type: BLOOD SPECIMENOrdering Facility: [facility] Address: [address] [place] [address] Performed By: #### 2 4321-2, , 2776-05 ####[facility]ORATORYCLIA [id number] [place] [address] [place] Chloride [Moles/Vol] 97 mmol/L Normal 97-105 [facility] Comment on above: Order Comment: Speci men Type: BLOOD SPECIMENOrdering Facility: [facility] Address: [address] [address] Performed By: #### 2 4321-2, , 2776-05 ####[facility]ORATORYCLIA [id number] [place] [address] [place] CO2 [Moles/Vol] 30 mmol/L Normal 22-30 [facility] Comment on above: Order Comment: Speci men Type: BLOOD SPECIMENOrdering Facility: [facility] Address: [address] [address] Performed By: #### 2 4321-2, , 2776-05 ####[facility]'S CENTERIA [id number] [place] [address] [place] Creatinine [Mass/Vol] 0.51 mg/dL Low 0.73-1.22 [facility] Comment on above: Order Comment: Shira feldman Type: BLOOD SPECIMENOrdering Facility: [facility] Address: [address] [phone] Performed By: #### 2 4321-2, , 2776-05 ####[facility]'S CENTERIA [id number] [address] [id number] [facility] [place] ESTIMATED GLOMERULAR FILTRATION RATE 110 mL/min/1.73m??? Normal >=60 [facility] Comment on above: Order Comment: Shira feldman Type: BLOOD SPECIMENOrdering Facility: [facility] Address: [address] [place] [address] Result Comment: Luzmaria mated Glomerular Filtration Rate [...] Performed By: #### 2 4321-2, , 2776-05 ####[facility] CENTERIA [id number] [address] [id number] [place] Glucose [Mass/Vol] 106 mg/dL High 74-99 [facility] Comment on above: Order Comment: Shira francia Type: BLOOD SPECIMENOrdering Facility: [facility] Address: [address] [phone] Result Comment: The [place] Diabetes [employer] (ADA) provides guidance for cutoff [...] Standards of Medical Care in Diabetes 2016, [place] [employer]. Diabetes Care. 2016.39(Suppl 1). Performed By: #### 2 4321-2, , 2776-05 ####[facility] LABORATORYCLIA [id number] [address] STATES OF [facility] Potassium [Moles/Vol] 4.1 mmol/L Normal 3.7-5.1 [facility] Comment on above: Order Comment: Speci men Type: BLOOD SPECIMENOrdering Facility: [facility] Address: [address] [place] [address] Performed By: #### 2 4321-2, , 2776-05 ####[facility]ITAL[facility]IA [id number] [address] Sodium [Moles/Vol] 135 mmol/L Low 136-144 [facility] Comment on above: Order Comment: Speci francia Type: BLOOD SPECIMENOrdering Facility: [facility] Address: [address] [place] [address] Performed By: #### 2 4321-2, , 2776-05 ####[facility] LABORATORYCLIA [id number] [address] STATES [facility] Urea nitrogen [Mass/Vol] 26 mg/dL High 9-24 [facility] Comment on above: Order Comment: Speci men Type: BLOOD SPECIMENOrdering Facility: [facility] Address: [address] [place] [address] Performed By: #### 2 4321-2, , 2776-05 ####[facility]ORATORYCLIA [id number] [address] [place] CBC W Auto Differential pane l (Bld)on 08-09-2021 Basophils (Bld) [#/Vol] 0.06 10*3/uL Normal <0.11 [facility] Comment on above: Order Comment: Speci men Type: BLOOD SPECIMENOrdering Facility: [facility] Address: [address] [place] [address] Performed By: #### 5 7021-8 ####[facility]ORATORYCLIA [id number] [address] STATES [facility] Basophils/100 WBC (Bld) 0.5 % Normal [facility] Comment on above: Order Comment: Speci men Type: BLOOD SPECIMENOrdering Facility: [facility] Address: [address] [place] [address] Performed By: #### 5 7021-8 ####[facility]ORYCLIA [id number] [address] Differential cell count method Nom (Bld) Auto Normal [facility] Comment on above: Order Comment: Speci men Type: BLOOD SPECIMENOrdering Facility: [facility] Address: [address] [place] [address] Performed By: #### 5 7021-8 ####[facility]ORATORYCLIA [id number] [address] Eosinophils (Bld) [#/Vol] 0.42 10*3/uL Normal <0.46 [facility] Comment on above: Order Comment: Speci men Type: BLOOD SPECIMENOrdering Facility: [facility] Address: [address] [place] [address] Performed By: #### 5 7021-8 ####[facility]ORYCLIA [id number] [address] Eosinophils/100 WBC (Bld) 3.8 % Normal [facility] Comment on above: Order Comment: Speci men Type: BLOOD SPECIMENOrdering Facility: [facility] Address: [address] [place] [address] Performed By: #### 5 7021-8 ####[facility]ORYCLIA [id number] [address] Erythrocyte distribution width (RBC) [Ratio] 17.6 % High 11.5-15.0 [facility] Comment on above: Order Comment: Speci men Type: BLOOD SPECIMENOrdering Facility: [facility] Address: [address] [place] [address] Performed By: #### 5 7021-8 ####[facility] LABORATORYCLIA [id number] [address] OF [facility] Hematocrit (Bld) [Volume fraction] 29.3 % Low 39.0-51.0 [facility] Comment on above: Order Comment: Speci men Type: BLOOD SPECIMENOrdering Facility: [facility] Address: [address] [place] [address] Performed By: #### 5 7021-8 ####[facility] LABORATORYCLIA [id number] [address] STATES OF [facility] Hemoglobin (Bld) [Mass/Vol] 9.0 g/dL Low 13.0-17.0 [facility] Comment on above: Order Comment: Speci men Type: BLOOD SPECIMENOrdering Facility: [facility] Address: [address] [place] [address] Performed By: #### 5 7021-8 ####[facility] LABORATORYCLIA [id number] [address] [place] OF [facility] IMMATURE GRAN % 0.5 % Normal [facility] Comment on above: Order Comment: Speci men Type: BLOOD SPECIMENOrdering Facility: [facility] Address: [address] [place] [address] Performed By: #### 5 7021-8 ####[facility] LABORATORYCLIA [id number] [address] IMMATURE GRAN ABS 0.05 k/uL Normal <0.10 [facility] Comment on above: Order Comment: Speci men Type: BLOOD SPECIMENOrdering Facility: [facility] Address: [address] [place] [address] Performed By: #### 5 7021-8 ####[facility]ORATORYCLIA [id number] [address] [place] Lymphocytes (Bld) [#/Vol] 2.00 10*3/uL Normal 1.00-4.00 [facility] Comment on above: Order Comment: Speci men Type: BLOOD SPECIMENOrdering Facility: [facility] Address: [address] [place] [address] Performed By: #### 5 7021-8 ####[facility] LABORATORYCLIA [id number] [address] Lymphocytes/100 WBC (Bld) 18.1 % Normal [facility] Comment on above: Order Comment: Speci men Type: BLOOD SPECIMENOrdering Facility: [facility] Address: [address] [place] [address] Performed By: #### 5 7021-8 ####[facility] LABORATORYCLIA [id number] [address] MCH (RBC) [Entitic mass] 28.1 pg Normal 26.0-34.0 [facility] Comment on above: Order Comment: Speci men Type: BLOOD SPECIMENOrdering Facility: [facility] Address: [address] [place] [address] Performed By: #### 5 7021-8 ####[facility] LABORATORYCLIA [id number] [address] [place] MCHC (RBC) [Mass/Vol] 30.7 g/dL Normal 30.5-36.0 [facility] Comment on above: Order Comment: Speci men Type: BLOOD SPECIMENOrdering Facility: [facility] Address: [address] [place] [address] Performed By: #### 5 7021-8 ####[facility] LABORATORYCLIA [id number] [address] OF [facility] MCV (RBC) [Entitic vol] 91.6 fL Normal 80.0-100.0 [facility] Comment on above: Order Comment: Speci men Type: BLOOD SPECIMENOrdering Facility: [facility] Address: [address] [place] [address] Performed By: #### 5 7021-8 ####[facility]ORATORYCLIA [id number] [address] [place] Monocytes (Bld) [#/Vol] 0.68 10*3/uL Normal <0.87 [facility] Comment on above: Order Comment: Speci men Type: BLOOD SPECIMENOrdering Facility: [facility] Address: [address] [place] [address] Performed By: #### 5 7021-8 ####[facility] LABORATORYCLIA [id number] [address] [place] Monocytes/100 WBC (Bld) 6.2 % Normal [facility] Comment on above: Order Comment: Speci men Type: BLOOD SPECIMENOrdering Facility: [facility] Address: [address] [place] [address] Performed By: #### 5 7021-8 ####[facility] LABORATORYCLIA [id number] [address] [place] Neutrophils (Bld) [#/Vol] 7.82 10*3/uL High 1.45-7.50 [facility] Comment on above: Order Comment: Speci men Type: BLOOD SPECIMENOrdering Facility: [facility] Address: [address] [place] [address] Performed By: #### 5 7021-8 ####[facility] LABORATORYCLIA [id number] [address] [place] Neutrophils/100 WBC (Bld) 70.9 % Normal [facility] Comment on above: Order Comment: Speci men Type: BLOOD SPECIMENOrdering Facility: [facility] Address: [address] [place] [address] Performed By: #### 5 7021-8 ####[facility]ORATORYCLIA [id number] [place] [address] [place] Nucleated RBC (Bld) [#/Vol] 10*3/uL Normal <0.01 [facility] Comment on above: Order Comment: Speci men Type: BLOOD SPECIMENOrdering Facility: [facility] Address: [address] [place] [address] Performed By: #### 5 7021-8 ####[facility] LABORATORYCLIA [id number] [address] Nucleated RBC/100 WBC (Bld) [Ratio] 0.0 /100 WBC Normal [facility] Comment on above: Order Comment: Speci men Type: BLOOD SPECIMENOrdering Facility: [facility] Address: [address] [place] [address] Performed By: #### 5 7021-8 ####[facility] LABORATORYCLIA [id number] [address] [place] Platelet mean volume (Bld) [Entitic vol] 10.1 fL Normal 9.0-12.7 [facility] Comment on above: Order Comment: Speci men Type: BLOOD SPECIMENOrdering Facility: [facility] Address: [address] [place], [place] [address] Performed By: #### 5 7021-8 ####[facility] LABORATORYCLIA [id number] [address] [place] Platelets (Bld) [#/Vol] 160 10*3/uL Normal 150-400 [facility] Comment on above: Order Comment: Speci men Type: BLOOD SPECIMENOrdering Facility: [facility] Address: [address] [place], [place] [address] Performed By: #### 5 7021-8 ####[facility] LABORATORYCLIA [id number] [address] [place] RBC (Bld) [#/Vol] 3.20 10*6/uL Low 4.20-6.00 [facility] Comment on above: Order Comment: Speci men Type: BLOOD SPECIMENOrdering Facility: [facility] Address: [address] [place], [place] [address] Performed By: #### 5 7021-8 ####[facility] LABORATORYCLIA [id number] [place] [address] [place] WBC (Bld) [#/Vol] 11.03 10*3/uL High 3.70-11.00 [facility] Comment on above: Order Comment: Speci men Type: BLOOD SPECIMENOrdering Facility: [facility] Address: [address] [place] [address] Performed By: #### 5 7021-8 ####[facility] LABORATORYCLIA [id number] [place] [address] [place] CONSULT PROGon 08-09-2021 CONSULT PROG Normal [facility] CT BRAIN WO IVCONon 08-10-19 CT BRAIN WO IVCON Normal [facility] CT BRAIN WO IVCON Normal [facility] Magnesium SerPl-mCncon 08-09 Magnesium [Mass/Vol] 2.0 mg/dL Normal 1.7-2.3 [facility] Comment on above: Order Comment: Speci men Type: BLOOD SPECIMENOrdering Facility: [facility] Address: [address] [place] [address] Performed By: #### 2 4321-2, 22722-0, 2777-1 ####[facility] LABORATORYCLIA [id number] [address] [place] NURSING PROGon 08-09-2021 NURSING PROG Normal [facility] OPERATIVE NOon 08-09-2021 OPERATIVE NO Normal [facility] PT panel Coag (PPP)on 2021 INR Coag (PPP) [Relative time] 1.1 {INR} Normal 0.9-1.3 [facility] Comment on above: Order Comment: Speci men Type: BLOOD SPECIMENOrdering Facility: [facility] Address: [address] [place], [place] [address] Result Comment: Yris min K Antagonist (VKA) Therapeutic Range: INR 2 to 3 (Target INR of 2.5)Note: For patients treated with VKA drugs, such as warfarin, the [place] [employer] 2012 Guideline recommends [...] al. Chest 2012, 141:7S-47SNishimpatricia RA, et al. [employer] 2017, 70: 252-289 Performed By: #### 3 4528-0, 92746-5 ####[facility] LABORATORYCLIA [id number] [place] [address] [place] PT Coag (PPP) [Time] 11.7 s Normal 9.7-13.0 [facility] Comment on above: Order Comment: Speci men Type: BLOOD SPECIMENOrdering Facility: [facility] Address: [address] [place] [address] Performed By: #### 3 4528-0, 36823-6 ####[facility] LABORATORYCLIA [id number] [place] [address] [place] Phosphate SerPl-mCncon 08-09 Phosphate [Mass/Vol] 4.0 mg/dL Normal 2.7-4.8 [facility] Comment on above: Order Comment: Speci men Type: BLOOD SPECIMENOrdering Facility: [facility] Address: [address] [place] [address] Performed By: #### 2 4321-2, 49267-2, 2777-1 ####[facility] LABORATORYCLIA [id number] [address] [place] THERAPY NTon 08-09-2021 THERAPY NT Normal [facility] THERAPY NT Normal [facility] TYPE AND SCREENon 08-09-2021 ABO O Normal [facility] Comment on above: Order Comment: Speci men Type: BLOOD SPECIMENOrdering Facility: [facility] Address: [address] [place] [address] Performed By: #### T SCR ####[facility] BLOOD BANKCLIA [id number] [address] HISTORICAL AB SCR STATUS Negative Normal [facility] Comment on above: Order Comment: Speci men Type: BLOOD SPECIMENOrdering Facility: [facility] Address: [address] [place] [address] Performed By: #### T SCR ####[facility] BLOOD BANKCLIA [id number] [address] Rh Nom (Bld) Positive Normal [facility] Comment on above: Order Comment: Speci men Type: BLOOD SPECIMENOrdering Facility: [facility] Address: [address] [place] [address] Performed By: #### T SCR ####[facility] BLOOD BANKCLIA [id number] [address] TYPE AND SCREEN EXPIRATION 08/12/2021 23:59 Normal [facility] Comment on above: Order Comment: Speci men Type: BLOOD SPECIMENOrdering Facility: [facility] Address: [address] [place] [address] Performed By: #### T SCR ####[facility] BLOOD BANKCLIA [id number] [address] [place] XR ABD 2V SUPINE W UPR/DECUB /CTLon 08-09-2021 XR ABD 2V SUPINE W UPR/DECUB/CTL Normal [facility] XR CHEST 1V FRONTALon 2021 XR CHEST 1V FRONTAL Normal [facility] XR NECK SOFT TISSUE 2V AP/LA Ton 08-09-2021 XR NECK SOFT TISSUE 2V AP/LAT Normal [facility] XR SKULL 2V AP/LATon 022 XR SKULL 2V AP/LAT Normal [facility] aPTT PPPon 08-09-2021 aPTT Coag (PPP) [Time] 26.8 s Normal 23.0-32.4 [facility] Comment on above: Order Comment: Speci men Type: BLOOD SPECIMENOrdering Facility: [facility] Address: [address] [place] [address] Performed By: #### 3 4528-0, 50436-1 ####[facility] LABORATORYCLIA [id number] [address] OF [facility] CASE MANAGEMon 08-08-2021 CASE MANAGEM Normal [facility] CBC W Auto Differential pane l (Bld)on 08-08-2021 Basophils (Bld) [#/Vol] 0.05 10*3/uL Normal <0.11 [facility] Comment on above: Order Comment: Speci men Type: BLOOD SPECIMENOrdering Facility: [facility] Address: [address] [place] [address] Performed By: #### 5 7021-8 ####[facility] LABORATORYCLIA [id number] [address] [place] [facility] Basophils/100 WBC (Bld) 0.5 % Normal [facility] Comment on above: Order Comment: Speci men Type: BLOOD SPECIMENOrdering Facility: [facility] Address: [address] [place] [address] Performed By: #### 5 7021-8 ####[facility] LABORATORYCLIA [id number] [address] STATES OF [facility] Differential cell count method Nom (Bld) Auto Normal [facility] Comment on above: Order Comment: Speci men Type: BLOOD SPECIMENOrdering Facility: [facility] Address: [address] [place] [address] Performed By: #### 5 7021-8 ####[facility] LABORATORYCLIA [id number] [address] [place] Eosinophils (Bld) [#/Vol] 0.17 10*3/uL Normal <0.46 [facility] Comment on above: Order Comment: Speci men Type: BLOOD SPECIMENOrdering Facility: [facility] Address: [address] [place] [place] [address] Performed By: #### 5 7021-8 ####[facility] LABORATORYCLIA [id number] [address] [place] [facility] Eosinophils/100 WBC (Bld) 1.6 % Normal [facility] Comment on above: Order Comment: Speci men Type: BLOOD SPECIMENOrdering Facility: [facility] Address: [address] [place] [address] Performed By: #### 5 7021-8 ####[facility] LABORATORYCLIA [id number] [address] [place] Erythrocyte distribution width (RBC) [Ratio] 17.8 % High 11.5-15.0 [facility] Comment on above: Order Comment: Speci men Type: BLOOD SPECIMENOrdering Facility: [facility] Address: [address] [place] [address] Performed By: #### 5 7021-8 ####[facility] LABORATORYCLIA [id number] [address] Hematocrit (Bld) [Volume fraction] 29.6 % Low 39.0-51.0 [facility] Comment on above: Order Comment: Speci men Type: BLOOD SPECIMENOrdering Facility: [facility] Address: [address] [place] [address] Performed By: #### 5 7021-8 ####[facility] LABORATORYCLIA [id number] [address] [place] Hemoglobin (Bld) [Mass/Vol] 9.0 g/dL Low 13.0-17.0 [facility] Comment on above: Order Comment: Speci men Type: BLOOD SPECIMENOrdering Facility: [facility] Address: [address] [place] [address] Performed By: #### 5 7021-8 ####[facility] LABORATORYCLIA [id number] [address] [place] IMMATURE GRAN % 0.5 % Normal [facility] Comment on above: Order Comment: Speci men Type: BLOOD SPECIMENOrdering Facility: [facility] Address: [address] [place] [address] Performed By: #### 5 7021-8 ####[facility] LABORATORYCLIA [id number] [address] STATES OF [facility] IMMATURE GRAN ABS 0.05 k/uL Normal <0.10 [facility] Comment on above: Order Comment: Speci men Type: BLOOD SPECIMENOrdering Facility: [facility] Address: [address] [place] [address] Performed By: #### 5 7021-8 ####[facility] LABORATORYCLIA [id number] [address] Lymphocytes (Bld) [#/Vol] 1.93 10*3/uL Normal 1.00-4.00 [facility] Comment on above: Order Comment: Speci men Type: BLOOD SPECIMENOrdering Facility: [facility] Address: [address] [place] [address] Performed By: #### 5 7021-8 ####[facility] LABORATORYCLIA [id number] [address] Lymphocytes/100 WBC (Bld) 18.2 % Normal [facility] Comment on above: Order Comment: Speci men Type: BLOOD SPECIMENOrdering Facility: [facility] Address: [address] [place] [address] Performed By: #### 5 7021-8 ####[facility] LABORATORYCLIA [id number] [address] [place] [facility] MCH (RBC) [Entitic mass] 28.1 pg Normal 26.0-34.0 [facility] Comment on above: Order Comment: Speci men Type: BLOOD SPECIMENOrdering Facility: [facility] Address: [address] [place] [address] Performed By: #### 5 7021-8 ####[facility] LABORATORYCLIA [id number] [address] MCHC (RBC) [Mass/Vol] 30.4 g/dL Low 30.5-36.0 [facility] Comment on above: Order Comment: Speci men Type: BLOOD SPECIMENOrdering Facility: [facility] Address: [address] [place] [address] Performed By: #### 5 7021-8 ####[facility] LABORATORYCLIA [id number] [address] OF [facility] MCV (RBC) [Entitic vol] 92.5 fL Normal 80.0-100.0 [facility] Comment on above: Order Comment: Speci men Type: BLOOD SPECIMENOrdering Facility: [facility] Address: [address] [place] [address] Performed By: #### 5 7021-8 ####[facility] LABORATORYCLIA [id number] [address] [place] [facility] Monocytes (Bld) [#/Vol] 0.75 10*3/uL Normal <0.87 [facility] Comment on above: Order Comment: Speci men Type: BLOOD SPECIMENOrdering Facility: [facility] Address: [address] [place] [address] Performed By: #### 5 7021-8 ####[facility] LABORATORYCLIA [id number] [address] Monocytes/100 WBC (Bld) 7.1 % Normal [facility] Comment on above: Order Comment: Speci men Type: BLOOD SPECIMENOrdering Facility: [facility] Address: [address] [place] [address] Performed By: #### 5 7021-8 ####[facility] LABORATORYCLIA [id number] [address] [place] Neutrophils (Bld) [#/Vol] 7.65 10*3/uL High 1.45-7.50 [facility] Comment on above: Order Comment: Speci men Type: BLOOD SPECIMENOrdering Facility: [facility] Address: [address] [place] [address] Performed By: #### 5 7021-8 ####[facility] LABORATORYCLIA [id number] [address] Neutrophils/100 WBC (Bld) 72.1 % Normal [facility] Comment on above: Order Comment: Speci men Type: BLOOD SPECIMENOrdering Facility: [facility] Address: [address] [place] [address] Performed By: #### 5 7021-8 ####[facility] LABORATORYCLIA [id number] [address] [place] Nucleated RBC (Bld) [#/Vol] 10*3/uL Normal <0.01 [facility] Comment on above: Order Comment: Speci men Type: BLOOD SPECIMENOrdering Facility: [facility] Address: [address] [place] [address] Performed By: #### 5 7021-8 ####[facility] LABORATORYCLIA [id number] [address] Nucleated RBC/100 WBC (Bld) [Ratio] 0.0 /100 WBC Normal [facility] Comment on above: Order Comment: Speci men Type: BLOOD SPECIMENOrdering Facility: [facility] Address: [address] [place] [address] Performed By: #### 5 7021-8 ####[facility] LABORATORYCLIA [id number] [address] [place] Platelet mean volume (Bld) [Entitic vol] 9.8 fL Normal 9.0-12.7 [facility] Comment on above: Order Comment: Speci men Type: BLOOD SPECIMENOrdering Facility: [facility] Address: [address] [place] [address] Performed By: #### 5 7021-8 ####[facility] LABORATORYCLIA [id number] [address] [place] Platelets (Bld) [#/Vol] 175 10*3/uL Normal 150-400 [facility] Comment on above: Order Comment: Speci men Type: BLOOD SPECIMENOrdering Facility: [facility] Address: [address] [place] [address] Performed By: #### 5 7021-8 ####[facility] LABORATORYCLIA [id number] [address] RBC (Bld) [#/Vol] 3.20 10*6/uL Low 4.20-6.00 [facility] Comment on above: Order Comment: Speci men Type: BLOOD SPECIMENOrdering Facility: [facility] Address: [address] [place] [address] Performed By: #### 5 7021-8 ####[facility] LABORATORYCLIA [id number] [address] WBC (Bld) [#/Vol] 10.60 10*3/uL Normal 3.70-11.00 [facility] Comment on above: Order Comment: Speci men Type: BLOOD SPECIMENOrdering Facility: [facility] Address: [address] [place] [address] Performed By: #### 5 7021-8 ####[facility] LABORATORYCLIA [id number] [address] BRAIN WO IVCONon 08-09-19 CT BRAIN WO IVCON Normal [facility] NURSING PROGon 08-08-2021 NURSING PROG Normal [facility] Prealbumin [Mass/Vol]on Prealbumin Nephelometry [Mass/Vol] 29 mg/dL Normal 17-36 [facility] Comment on above: Order Comment: Speci men Type: BLOOD SPECIMENOrdering Facility: [facility] Address: [address] [place] [address] Performed By: #### 1 4338-8 ####[facility] LABORATORYCLIA [id number] [address] SARS-CoV-2 RNA Resp Ql MEGAN+p robeon 08-08-2021 SARS-CoV-2 (COVID-19) RNA MEGAN+probe Ql (Resp) COVID 19 RESULT: SARS-CoV-2 (Agent of COVID-19) Not Detected by RT-PCR or equivalent method. This test has been authorized by FDA under an Emergency Use Authorization (EUA). Normal [facility] Comment on above: Performed By: #### 9 4500-6 ####[facility] LABORATORYCLIA [id number] [place] [address] [place] ALLIED HEALTHon 08-07-2021 ALLIED HEALTH Normal [facility] Basic metabolic 2000 panelon 08-07-2021 Anion gap [Moles/Vol] 9 mmol/L Normal 9-18 [facility] Comment on above: Order Comment: Speci men Type: BLOOD SPECIMENOrdering Facility: [facility] Address: [address] [place] [address] Performed By: #### 2 4321-2, 2776-, , [facility] ####[facility] LABORATORYCLIA [id number] [place] [address] [place] Calcium [Mass/Vol] 9.4 mg/dL Normal 8.5-10.2 [facility] Comment on above: Order Comment: Speci men Type: BLOOD SPECIMENOrdering Facility: [facility] Address: [address] [place] [address] Performed By: #### 2 4321-2, 2776-1, , [facility] ####[facility] LABORATORYCLIA [id number] [place] [address] [place] Chloride [Moles/Vol] 98 mmol/L Normal 97-105 [facility] Comment on above: Order Comment: Speci men Type: BLOOD SPECIMENOrdering Facility: [facility] Address: [address] [place] [address] Performed By: #### 2 4321-2, 2776-, , [facility] ####[facility] LABORATORYCLIA [id number] [place] [address] [place] CO2 [Moles/Vol] 29 mmol/L Normal 22-30 [facility] Comment on above: Order Comment: Speci men Type: BLOOD SPECIMENOrdering Facility: [facility] Address: [address] [place], [place] [id number] Performed By: #### 2 4321-2, 277-, , [facility] ####[facility] LABORATORYCLIA [id number] [place] [address] [place] Creatinine [Mass/Vol] 0.67 mg/dL Low 0.73-1.22 [facility] Comment on above: Order Comment: Speci men Type: BLOOD SPECIMENOrdering Facility: [facility] Address: [address] [place], [place] [id number] Performed By: #### 2 4321-2, 2776-05, , [facility] ####[facility] [id number] [address] [place] ESTIMATED GLOMERULAR FILTRATION RATE 101 mL/min/1.73m??? Normal >=60 [facility] Comment on above: Order Comment: Speci men Type: BLOOD SPECIMENOrdering Facility: [facility] Address: [address] [place] [address] Result Comment: Luzmaria mated Glomerular Filtration Rate [...] Performed By: #### 2 4321-2, 2776-05, , [facility] ####[place] [facility] LABORATORYCLIA [id number] [place] [address] [place] Glucose [Mass/Vol] 117 mg/dL High 74-99 [facility] Comment on above: Order Comment: Speci men Type: BLOOD SPECIMENOrdering Facility: [facility] Address: [address] [place], [place] [address] Result Comment: The [place] Diabetes Association (ADA) provides guidance for cutoff [...] Standards of Medical Care in Diabetes 2016, [place] [employer]. Diabetes Care. 2016.39(Suppl 1). Performed By: #### 2 4321-2, 2776-, , [facility] ####[place] LABORATORYCLIA [id number] [place] [address] [place] Potassium [Moles/Vol] 4.1 mmol/L Normal 3.7-5.1 [facility] Comment on above: Order Comment: Shira feldman Type: BLOOD SPECIMENOrdering Facility: [facility] Address: [address] [address] Performed By: #### 2 4321-2, 2776-05, , [facility] ####[facility]ITAL[facility] [id number] [place] [address] [place] Sodium [Moles/Vol] 136 mmol/L Normal 136-144 [facility] Comment on above: Order Comment: Shira feldman Type: BLOOD SPECIMENOrdering Facility: [facility] Address: [address] Performed By: #### 2 4321-2, 2776-05, , [facility] ####[facility] LABORATORYCLIA [id number] [place] [address] [place] Urea nitrogen [Mass/Vol] 31 mg/dL High 9-24 [facility] Comment on above: Order Comment: Johni men Type: BLOOD SPECIMENOrdering Facility: [facility] Address: [address] Performed By: #### 2 4321-2, 2776-05, , [facility] ####[facility]ATORYCLIA [id number] [place] [address] [place] CBC W Auto Differential pane l (Bld)on 08-07-2021 Basophils (Bld) [#/Vol] 0.03 10*3/uL Normal <0.11 [facility] Comment on above: Order Comment: Speci men Type: BLOOD SPECIMENOrdering Facility: [facility] Address: [address] [place] [address] Performed By: #### 5 7021-8 ####[place] LABORATORYCLIA [id number] [place] [address] [place] Basophils/100 WBC (Bld) 0.3 % Normal [facility] Comment on above: Order Comment: Speci men Type: BLOOD SPECIMENOrdering Facility: [facility] Address: [address] [place] [address] Performed By: #### 5 7021-8 ####[facility] LABORATORYCLIA [id number] [address] [place] Differential cell count method Nom (Bld) Auto Normal [facility] Comment on above: Order Comment: Speci men Type: BLOOD SPECIMENOrdering Facility: [facility] Address: [address] [place] [address] Performed By: #### 5 7021-8 ####[facility]ORATORYCLIA [id number] [place] [address] [place] Eosinophils (Bld) [#/Vol] 0.16 10*3/uL Normal <0.46 [facility] Comment on above: Order Comment: Speci men Type: BLOOD SPECIMENOrdering Facility: [facility] Address: [address] [place] [address] Performed By: #### 5 7021-8 ####[facility]ATORYCLIA [id number] [address] [place] Eosinophils/100 WBC (Bld) 1.6 % Normal [facility] Comment on above: Order Comment: Speci men Type: BLOOD SPECIMENOrdering Facility: [facility] Address: [address] [place] [address] Performed By: #### 5 7021-8 ####[place] LABORATORYCLIA [id number] [address] Erythrocyte distribution width (RBC) [Ratio] 18.1 % High 11.5-15.0 [facility] Comment on above: Order Comment: Speci men Type: BLOOD SPECIMENOrdering Facility: [facility] Address: [address] [place] [address] Performed By: #### 5 7021-8 ####[place] LABORATORYCLIA [id number] [address] Hematocrit (Bld) [Volume fraction] 30.6 % Low 39.0-51.0 [facility] Comment on above: Order Comment: Speci men Type: BLOOD SPECIMENOrdering Facility: [facility] Address: [address] [place] [address] Performed By: #### 5 7021-8 ####[facility] LABORATORYCLIA [id number] [address] Hemoglobin (Bld) [Mass/Vol] 9.4 g/dL Low 13.0-17.0 [facility] Comment on above: Order Comment: Speci men Type: BLOOD SPECIMENOrdering Facility: [facility] Address: [address] [place] [address] Performed By: #### 5 7021-8 ####[place] LABORATORYCLIA [id number] [address] IMMATURE GRAN % 0.4 % Normal [facility] Comment on above: Order Comment: Speci men Type: BLOOD SPECIMENOrdering Facility: [facility] Address: [address] [place] [address] Performed By: #### 5 7021-8 ####[place] LABORATORYCLIA [id number] [address] IMMATURE GRAN ABS 0.04 k/uL Normal <0.10 [facility] Comment on above: Order Comment: Speci men Type: BLOOD SPECIMENOrdering Facility: [facility] Address: [address] [place] [address] Performed By: #### 5 7021-8 ####[place] LABORATORYCLIA [id number] [address] Lymphocytes (Bld) [#/Vol] 2.05 10*3/uL Normal 1.00-4.00 [facility] Comment on above: Order Comment: Speci men Type: BLOOD SPECIMENOrdering Facility: [facility] Address: [address] [place] [address] Performed By: #### 5 7021-8 ####[place] LABORATORYCLIA [id number] [address] Lymphocytes/100 WBC (Bld) 20.2 % Normal [facility] Comment on above: Order Comment: Speci men Type: BLOOD SPECIMENOrdering Facility: [facility] Address: [address] [place] [address] Performed By: #### 5 7021-8 ####[place] LABORATORYCLIA [id number] [address] STATES OF [facility] MCH (RBC) [Entitic mass] 28.8 pg Normal 26.0-34.0 [facility] Comment on above: Order Comment: Speci men Type: BLOOD SPECIMENOrdering Facility: [facility] Address: [address] [place] [address] Performed By: #### 5 7021-8 ####[place]ORATORYCLIA [id number] [address] STATES [facility] MCHC (RBC) [Mass/Vol] 30.7 g/dL Normal 30.5-36.0 [facility] Comment on above: Order Comment: Speci men Type: BLOOD SPECIMENOrdering Facility: [facility] Address: [address] [place] [address] Performed By: #### 5 7021-8 ####[place] LABORATORYCLIA [id number] [place] [address] [place] MCV (RBC) [Entitic vol] 93.9 fL Normal 80.0-100.0 [facility] Comment on above: Order Comment: Speci men Type: BLOOD SPECIMENOrdering Facility: [facility] Address: [address] [place] [address] Performed By: #### 5 7021-8 ####[facility]ORATORYCLIA [id number] [place] [address] [place] Monocytes (Bld) [#/Vol] 0.64 10*3/uL Normal <0.87 [facility] Comment on above: Order Comment: Speci men Type: BLOOD SPECIMENOrdering Facility: [facility] Address: [address] [place] [address] Performed By: #### 5 7021-8 ####[facility]ORATORYCLIA [id number] [address] [place] Monocytes/100 WBC (Bld) 6.3 % Normal [facility] Comment on above: Order Comment: Speci men Type: BLOOD SPECIMENOrdering Facility: [facility] Address: [address] [place] [address] Performed By: #### 5 7021-8 ####[facility]ORATORYCLIA [id number] [place] [address] [place] Neutrophils (Bld) [#/Vol] 7.22 10*3/uL Normal 1.45-7.50 [facility] Comment on above: Order Comment: Speci men Type: BLOOD SPECIMENOrdering Facility: [facility] Address: [address] [place] [address] Performed By: #### 5 7021-8 ####[facility] LABORATORYCLIA [id number] [address] [place] Neutrophils/100 WBC (Bld) 71.2 % Normal [facility] Comment on above: Order Comment: Speci men Type: BLOOD SPECIMENOrdering Facility: [facility] Address: [address] [address] Performed By: #### 5 7021-8 ####[facility]ORATORYCLIA [id number] [address] Nucleated RBC (Bld) [#/Vol] 10*3/uL Normal <0.01 [facility] Comment on above: Order Comment: Speci men Type: BLOOD SPECIMENOrdering Facility: [facility] Address: [address] [place] [address] Performed By: #### 5 7021-8 ####[facility]ORATORYCLIA [id number] [address] Nucleated RBC/100 WBC (Bld) [Ratio] 0.0 /100 WBC Normal [facility] Comment on above: Order Comment: Speci men Type: BLOOD SPECIMENOrdering Facility: [facility] Address: [address] [place] [address] Performed By: #### 5 7021-8 ####[facility]ORATORYCLIA [id number] [address] [place] Platelet mean volume (Bld) [Entitic vol] 9.9 fL Normal 9.0-12.7 [facility] Comment on above: Order Comment: Speci men Type: BLOOD SPECIMENOrdering Facility: [facility] Address: [address] [place] [address] Performed By: #### 5 7021-8 ####[facility]ORATORYCLIA [id number] [address] Platelets (Bld) [#/Vol] 227 10*3/uL Normal 150-400 [facility] Comment on above: Order Comment: Speci men Type: BLOOD SPECIMENOrdering Facility: [facility] Address: [address] [place] [address] Performed By: #### 5 7021-8 ####[facility]ORATORYCLIA [id number] [address] [place] RBC (Bld) [#/Vol] 3.26 10*6/uL Low 4.20-6.00 [facility] Comment on above: Order Comment: Speci men Type: BLOOD SPECIMENOrdering Facility: [facility] Address: [address] [place] [address] Performed By: #### 5 7021-8 ####[facility]ORATORYCLIA [id number] [address] OF [facility] WBC (Bld) [#/Vol] 10.14 10*3/uL Normal 3.70-11.00 [facility] Comment on above: Order Comment: Speci men Type: BLOOD SPECIMENOrdering Facility: [facility] Address: [address] [place] [address] Performed By: #### 5 7021-8 ####[facility]ORATORYCLIA [id number] [address] BRAIN WO IVCONon 08-08-19 CT BRAIN WO IVCON Normal [facility] HEPATIC FUNCTION PNLon 08-07 Albumin [Mass/Vol] 3.6 g/dL Low 3.9-4.9 [facility] Comment on above: Order Comment: Speci men Type: BLOOD SPECIMENOrdering Facility: [facility] Address: [address] [place] [address] Performed By: #### 2 4321-2, 277-, , [facility] ####[facility]ORATORYCLIA [id number] [address] STATES OF [facility] ALP [Catalytic activity/Vol] 124 U/L High 38-113 [facility] Comment on above: Order Comment: Speci men Type: BLOOD SPECIMENOrdering Facility: [facility] Address: [address] [place] [address] Performed By: #### 2 4321-2, 277-1, , [facility] ####[facility]ORATORYCLIA [id number] [address] OF [facility] ALT With P-5'-P [Catalytic activity/Vol] 29 U/L Normal 10-54 [facility] Comment on above: Order Comment: Speci men Type: BLOOD SPECIMENOrdering Facility: [facility] Address: [address] [place] [address] Performed By: #### 2 4321-2, 2776-05, , [facility] ####[facility]ORATORYCLIA [id number] [address] [place] AST With P-5'-P [Catalytic activity/Vol] 18 U/L Normal 14-40 [facility] Comment on above: Order Comment: Speci men Type: BLOOD SPECIMENOrdering Facility: [facility] Address: [address] [place] [address] Performed By: #### 2 4321-2, 2776-05, , [facility] ####[facility]ORATORYCLIA [id number] [address] [place] Bilirubin [Mass/Vol] 0.3 mg/dL Normal 0.2-1.3 [facility] Comment on above: Order Comment: Speci men Type: BLOOD SPECIMENOrdering Facility: [facility] Address: [address] [place] [address] Performed By: #### 2 4321-2, 2776-05, , [facility] ####[facility]ORATORYCLIA [id number] [address] [place] Bilirubin.conjugated [Mass/Vol] mg/dL Normal <0.2 [facility] Comment on above: Order Comment: Speci men Type: BLOOD SPECIMENOrdering Facility: [facility] Address: [address] [place], [place] [address] Performed By: #### 2 4321-2, 2776-05, , [facility] ####[facility]ORATORYCLIA [id number] [address] [place] Protein [Mass/Vol] 6.4 g/dL Normal 6.3-8.0 [facility] Comment on above: Order Comment: Speci men Type: BLOOD SPECIMENOrdering Facility: [facility] Address: [address] [place], [place] [address] Performed By: #### 2 4321-2, 2776-05, , [facility] ####[facility]ORATORYCLIA [id number] [address] [place] Magnesium SerPl-mCncon 08-07 Magnesium [Mass/Vol] 2.3 mg/dL Normal 1.7-2.3 [facility] Comment on above: Order Comment: Speci men Type: BLOOD SPECIMENOrdering Facility: [facility] Address: [address] [place], [place] [address] Performed By: #### 2 4321-2, 2776-05, , [facility] ####[facility]ORATORYCLIA [id number] [address] [place] NURSING PROGon 08-07-2021 NURSING PROG Normal [facility] Phosphate SerPl-mCncon 08-07 Phosphate [Mass/Vol] 3.5 mg/dL Normal 2.7-4.8 [facility] Comment on above: Order Comment: Speci men Type: BLOOD SPECIMENOrdering Facility: [facility] Address: [address] [place] [address] Performed By: #### 2 4321-2, 2776-05, , [facility] ####[facility] LABORATORYCLIA [id number] [address] [place] ANES POSTPROC EVALon 022 ANES POSTPROC EVAL Normal [facility] Basic metabolic 2000 panelon 08-06-2021 Anion gap [Moles/Vol] 11 mmol/L Normal 9-18 [facility] Comment on above: Order Comment: Speci men Type: BLOOD SPECIMENOrdering Facility: [facility] Address: [address] [place], [place] [address] Performed By: #### 2 4321-2, 2776-05, ####[facility]ATORYCLIA [id number] [place] [address] [place] Calcium [Mass/Vol] 8.2 mg/dL Low 8.5-10.2 [facility] Comment on above: Order Comment: Speci men Type: BLOOD SPECIMENOrdering Facility: [facility] Address: [address] [place] [address] Performed By: #### 2 4321-2, 2776-05, ####[facility]ORATORYCLIA [id number] [place] [address] [place] Chloride [Moles/Vol] 100 mmol/L Normal 97-105 [facility] Comment on above: Order Comment: Speci men Type: BLOOD SPECIMENOrdering Facility: [facility] Address: [address] [place] [address] Performed By: #### 2 4321-2, 2776-05, ####[facility] LABORATORYCLIA [id number] [address] STATES OF [facility] CO2 [Moles/Vol] 23 mmol/L Normal 22-30 [facility] Comment on above: Order Comment: Speci men Type: BLOOD SPECIMENOrdering Facility: [facility] Address: [address] [place] [address] Performed By: #### 2 4321-2, 2776-05, ####[facility] LABORATORYCLIA [id number] [place] [address] [place] Creatinine [Mass/Vol] 0.55 mg/dL Low 0.73-1.22 [facility] Comment on above: Order Comment: Speci men Type: BLOOD SPECIMENOrdering Facility: [facility] Address: [address] [place] [address] Performed By: #### 2 4321-2, 2776-05, ####[facility] LABORATORYCLIA [id number] [address] [place] ESTIMATED GLOMERULAR FILTRATION RATE 107 mL/min/1.73m??? Normal >=60 [facility] Comment on above: Order Comment: Shira feldman Type: BLOOD SPECIMENOrdering Facility: [facility] Address: [address] [place] [address] Result Comment: Luzmaria mated Glomerular Filtration Rate [...] GFR. Performed By: #### 2 4321-2, 2777-1, ####[facility]ORATORYCLIA [id number] [place] [address] [place] Glucose [Mass/Vol] 275 mg/dL High 74-99 [facility] Comment on above: Order Comment: Shira feldman Type: BLOOD SPECIMENOrdering Facility: [facility] Address: [address] [place] [address] Result Comment: The [place] Diabetes Association (ADA) provides guidance for cutoff [...] Standards of Medical Care in Diabetes 2016, [place] [employer]. Diabetes Care. 2016.39(Suppl 1). Performed By: #### 2 4321-2, 2777-1, 20499-0 ####[facility] LABORATORYCLIA [id number] [place] [address] [place] Potassium [Moles/Vol] 3.6 mmol/L Low 3.7-5.1 [facility] Comment on above: Order Comment: Shira feldman Type: BLOOD SPECIMENOrdering Facility: [facility] Address: [address] [address] Performed By: #### 2 4321-2, 277-, ####[facility] LABORATORYCLIA [id number] [address] STATES OF [facility] Sodium [Moles/Vol] 134 mmol/L Low 136-144 [facility] Comment on above: Order Comment: Speci men Type: BLOOD SPECIMENOrdering Facility: [facility] Address: [address] [place] [address] Performed By: #### 2 4321-2, 2776-05, ####[facility] LABORATORYCLIA [id number] [address] [place] Urea nitrogen [Mass/Vol] 29 mg/dL High 9-24 [facility] Comment on above: Order Comment: Speci men Type: BLOOD SPECIMENOrdering Facility: [facility] Address: [address] [place] [address] Performed By: #### 2 4321-2, 2776-05, ####[facility] LABORATORYCLIA [id number] [address] [place] CBC W Auto Differential pane l (Bld)on 08-06-2021 Basophils (Bld) [#/Vol] 0.03 10*3/uL Normal <0.11 [facility] Comment on above: Order Comment: Speci men Type: BLOOD SPECIMENOrdering Facility: [facility] Address: [address] [place] [address] Performed By: #### 5 7021-8 ####[facility] LABORATORYCLIA [id number] [address] STATES OF [facility] Basophils/100 WBC (Bld) 0.3 % Normal [facility] Comment on above: Order Comment: Speci men Type: BLOOD SPECIMENOrdering Facility: [facility] Address: [address] [place] [address] Performed By: #### 5 7021-8 ####[facility]ATORYCLIA [id number] [address] Differential cell count method Nom (Bld) Auto Normal [facility] Comment on above: Order Comment: Speci men Type: BLOOD SPECIMENOrdering Facility: [facility] Address: [address] [place] [address] Performed By: #### 5 7021-8 ####[facility] LABORATORYCLIA [id number] [address] [place] Eosinophils (Bld) [#/Vol] 0.18 10*3/uL Normal <0.46 [facility] Comment on above: Order Comment: Speci men Type: BLOOD SPECIMENOrdering Facility: [facility] Address: [address] [place] [address] Performed By: #### 5 7021-8 ####[facility] LABORATORYCLIA [id number] [address] Eosinophils/100 WBC (Bld) 1.6 % Normal [facility] Comment on above: Order Comment: Speci men Type: BLOOD SPECIMENOrdering Facility: [facility] Address: [address] [place] [address] Performed By: #### 5 7021-8 ####[facility] LABORATORYCLIA [id number] [address] [place] Erythrocyte distribution width (RBC) [Ratio] 17.9 % High 11.5-15.0 [facility] Comment on above: Order Comment: Speci men Type: BLOOD SPECIMENOrdering Facility: [facility] Address: [address] [place] [address] Performed By: #### 5 7021-8 ####[facility] LABORATORYCLIA [id number] [address] [place] Hematocrit (Bld) [Volume fraction] 27.6 % Low 39.0-51.0 [facility] Comment on above: Order Comment: Speci men Type: BLOOD SPECIMENOrdering Facility: [facility] Address: [address] [place] [address] Performed By: #### 5 7021-8 ####[facility] LABORATORYCLIA [id number] [address] [place] Hemoglobin (Bld) [Mass/Vol] 8.5 g/dL Low 13.0-17.0 [facility] Comment on above: Order Comment: Speci men Type: BLOOD SPECIMENOrdering Facility: [facility] Address: [address] [place] [address] Performed By: #### 5 7021-8 ####[facility] LABORATORYCLIA [id number] [address] IMMATURE GRAN % 0.6 % Normal [facility] Comment on above: Order Comment: Speci men Type: BLOOD SPECIMENOrdering Facility: [facility] Address: [address] [place] [address] Performed By: #### 5 7021-8 ####[facility] LABORATORYCLIA [id number] [address] IMMATURE GRAN ABS 0.07 k/uL Normal <0.10 [facility] Comment on above: Order Comment: Speci men Type: BLOOD SPECIMENOrdering Facility: [facility] Address: [address] [place] [address] Performed By: #### 5 7021-8 ####[facility] LABORATORYCLIA [id number] [address] [place] Lymphocytes (Bld) [#/Vol] 1.81 10*3/uL Normal 1.00-4.00 [facility] Comment on above: Order Comment: Speci men Type: BLOOD SPECIMENOrdering Facility: [facility] Address: [address] [place] [address] Performed By: #### 5 7021-8 ####[facility] LABORATORYCLIA [id number] [address] Lymphocytes/100 WBC (Bld) 15.7 % Normal [facility] Comment on above: Order Comment: Speci men Type: BLOOD SPECIMENOrdering Facility: [facility] Address: [address] [place] [address] Performed By: #### 5 7021-8 ####[facility] LABORATORYCLIA [id number] [address] MCH (RBC) [Entitic mass] 28.6 pg Normal 26.0-34.0 [facility] Comment on above: Order Comment: Speci men Type: BLOOD SPECIMENOrdering Facility: [facility] Address: [address] [place] [address] Performed By: #### 5 7021-8 ####[facility] LABORATORYCLIA [id number] [address] MCHC (RBC) [Mass/Vol] 30.8 g/dL Normal 30.5-36.0 [facility] Comment on above: Order Comment: Speci men Type: BLOOD SPECIMENOrdering Facility: [facility] Address: [address] [place] [address] Performed By: #### 5 7021-8 ####[facility] LABORATORYCLIA [id number] [address] STATES OF [facility] MCV (RBC) [Entitic vol] 92.9 fL Normal 80.0-100.0 [facility] Comment on above: Order Comment: Speci men Type: BLOOD SPECIMENOrdering Facility: [facility] Address: [address] [place] [address] Performed By: #### 5 7021-8 ####[facility] LABORATORYCLIA [id number] [address] OF [facility] Monocytes (Bld) [#/Vol] 0.63 10*3/uL Normal <0.87 [facility] Comment on above: Order Comment: Speci men Type: BLOOD SPECIMENOrdering Facility: [facility] Address: [address] [place] [address] Performed By: #### 5 7021-8 ####[facility] LABORATORYCLIA [id number] [address] Monocytes/100 WBC (Bld) 5.5 % Normal [facility] Comment on above: Order Comment: Speci men Type: BLOOD SPECIMENOrdering Facility: [facility] Address: [address] [place] [address] Performed By: #### 5 7021-8 ####[facility]ATORYCLIA [id number] [address] [place] Neutrophils (Bld) [#/Vol] 8.78 10*3/uL High 1.45-7.50 [facility] Comment on above: Order Comment: Speci men Type: BLOOD SPECIMENOrdering Facility: [facility] Address: [address] [place] [address] Performed By: #### 5 7021-8 ####[facility]ATORYCLIA [id number] [address] [place] Neutrophils/100 WBC (Bld) 76.3 % Normal [facility] Comment on above: Order Comment: Speci men Type: BLOOD SPECIMENOrdering Facility: [facility] Address: [address] [place] [address] Performed By: #### 5 7021-8 ####[facility]ATORYCLIA [id number] [address] [place] Nucleated RBC (Bld) [#/Vol] 10*3/uL Normal <0.01 [facility] Comment on above: Order Comment: Speci men Type: BLOOD SPECIMENOrdering Facility: [facility] Address: [address] [place] [address] Performed By: #### 5 7021-8 ####[facility]ORATORYCLIA [id number] [address] [place] Nucleated RBC/100 WBC (Bld) [Ratio] 0.0 /100 WBC Normal [facility] Comment on above: Order Comment: Speci men Type: BLOOD SPECIMENOrdering Facility: [facility] Address: [address] [place] [address] Performed By: #### 5 7021-8 ####[facility]ORATORYCLIA [id number] [address] [place] Platelet mean volume (Bld) [Entitic vol] 9.9 fL Normal 9.0-12.7 [facility] Comment on above: Order Comment: Speci men Type: BLOOD SPECIMENOrdering Facility: [facility] Address: [address] [place] [address] Performed By: #### 5 7021-8 ####[facility] LABORATORYCLIA [id number] [address] [place] Platelets (Bld) [#/Vol] 230 10*3/uL Normal 150-400 [facility] Comment on above: Order Comment: Speci men Type: BLOOD SPECIMENOrdering Facility: [facility] Address: [address] [place] [address] Performed By: #### 5 7021-8 ####[facility] LABORATORYCLIA [id number] [place] [address] [place] RBC (Bld) [#/Vol] 2.97 10*6/uL Low 4.20-6.00 [facility] Comment on above: Order Comment: Speci men Type: BLOOD SPECIMENOrdering Facility: [facility] Address: [address] [place] [address] Performed By: #### 5 7021-8 ####[facility] LABORATORYCLIA [id number] [address] [place] WBC (Bld) [#/Vol] 11.50 10*3/uL High 3.70-11.00 [facility] Comment on above: Order Comment: Speci men Type: BLOOD SPECIMENOrdering Facility: [facility] Address: [address] [place] [address] Performed By: #### 5 7021-8 ####[facility] LABORATORYCLIA [id number] [address] [place] CONSULT PROGon 08-06-2021 CONSULT PROG Normal [facility] Magnesium SerPl-mCncon 08-06 Magnesium [Mass/Vol] 1.9 mg/dL Normal 1.7-2.3 [facility] Comment on above: Order Comment: Speci men Type: BLOOD SPECIMENOrdering Facility: [facility] Address: [address] [place] [address] Performed By: #### 2 4321-2, 2777-1, 76994-5 ####[facility] LABORATORYCLIA [id number] [address] [place] NURSING PROGon 08-06-2021 NURSING PROG Normal [facility] OPERATIVE NOon 08-06-2021 OPERATIVE NO Normal [facility] Phosphate SerPl-mCncon 08-06 Phosphate [Mass/Vol] 4.2 mg/dL Normal 2.7-4.8 [facility] Comment on above: Order Comment: Speci men Type: BLOOD SPECIMENOrdering Facility: [facility] Address: [address] [place] [address] Performed By: #### 2 4321-2, 2777-1, ####[facility]ORATORYCLIA [id number] [address] [place] ALLIED HEALTHon 08-05-2021 ALLIED HEALTH Normal [facility] ALLIED HEALTH Normal [facility] ANES PRE-OPon 08-05-2021 ANES PRE-OP Normal [facility] BRIEF OP NOTon 08-05-2021 BRIEF OP NOT Normal [facility] Bacteria Spec Resp Culton Bacteria identified Respiratory culture Nom (Unsp spec) CULTURE, RESPIRATORY: Few Normal respiratory chris present ORGANISM ID: 1 Few Proteus species Insignificant colony count. No further workup. GRAM STAIN: No organisms seen Few Polymorphonuclear leukocytes Few Epithelial cells Abnormal [facility] Comment on above: Performed By: #### 3 2355-0 ####[facility] LABORATORYCLIA [id number] [address] [place] Bacteria Ur Culton Bacteria identified Cx Nom (U) CULTURE, URINE: No growth (<1,000 CFU/ml) Normal [facility] Comment on above: Performed By: #### 6 30-4 ####[facility]ORATORYCLIA [id number] [address] [place] Basic metabolic 2000 panelon 08-05-2021 Anion gap [Moles/Vol] 7 mmol/L Low 9-18 [facility] Comment on above: Order Comment: Speci men Type: BLOOD SPECIMENOrdering Facility: [facility] Address: [address] [place] [address] Performed By: #### 2 4321-2 ####[facility] LABORATORYCLIA [id number] [place] [address] [place] Calcium [Mass/Vol] 9.5 mg/dL Normal 8.5-10.2 [facility] Comment on above: Order Comment: Speci men Type: BLOOD SPECIMENOrdering Facility: [facility] Address: [address] [place] [address] Performed By: #### 2 4321-2 ####[facility] LABORATORYCLIA [id number] [address] [place] Chloride [Moles/Vol] 97 mmol/L Normal 97-105 [facility] Comment on above: Order Comment: Speci men Type: BLOOD SPECIMENOrdering Facility: [facility] Address: [address] [place] [address] Performed By: #### 2 4321-2 ####[facility]ORATORYCLIA [id number] [address] [place] CO2 [Moles/Vol] 30 mmol/L Normal 22-30 [facility] Comment on above: Order Comment: Speci men Type: BLOOD SPECIMENOrdering Facility: [facility] Address: [address] [place] [address] Performed By: #### 2 4321-2 ####[facility]ORATORYCLIA [id number] [place] [address] [place] Creatinine [Mass/Vol] 0.61 mg/dL Low 0.73-1.22 [facility] Comment on above: Order Comment: Speci men Type: BLOOD SPECIMENOrdering Facility: [facility] Address: [address] [place] [address] Performed By: #### 2 4321-2 ####[facility] LABORATORYCLIA [id number] [address] [place] ESTIMATED GLOMERULAR FILTRATION RATE 104 mL/min/1.73m??? Normal >=60 [facility] Comment on above: Order Comment: Shira feldman Type: BLOOD SPECIMENOrdering Facility: [facility] Address: [address] [place] [address] Result Comment: Luzmaria mated Glomerular Filtration Rate [...] By: #### 2 4321-2 ####[facility] LABORATORYIA [id number] [place] [address] [place] Glucose [Mass/Vol] 124 mg/dL High 74-99 [facility] Comment on above: Order Comment: Shira francia Type: BLOOD SPECIMENOrdering Facility: [facility] Address: [address] [place] [address] Result Comment: The [place] [employer] (ADA) provides guidance for cutoff [...] Standards of Medical Care in Diabetes 2016, [place] [employer]. Diabetes Care. 2016.39(Suppl 1). Performed By: #### 2 4321-2 ####[facility]ORATORYCLIA [id number] [place] [address] [place] Potassium [Moles/Vol] 4.9 mmol/L Normal 3.7-5.1 [facility] Comment on above: Order Comment: Speci men Type: BLOOD SPECIMENOrdering Facility: [facility] Address: [address] [place] [address] Performed By: #### 2 4321-2 ####[facility] LABORATORYCLIA [id number] [place] [address] [place] Sodium [Moles/Vol] 134 mmol/L Low 136-144 [facility] Comment on above: Order Comment: Speci men Type: BLOOD SPECIMENOrdering Facility: [facility] Address: [address] [place] [address] Performed By: #### 2 4321-2 ####[facility] LABORATORYCLIA [id number] [address] [place] Urea nitrogen [Mass/Vol] 40 mg/dL High 9-24 [facility] Comment on above: Order Comment: Speci men Type: BLOOD SPECIMENOrdering Facility: [facility] Address: [address] [place] [address] Performed By: #### 2 4321-2 ####[facility] LABORATORYCLIA [id number] [place] [address] [place] CBC W Auto Differential pane l (Bld)on 08-05-2021 Basophils (Bld) [#/Vol] 0.04 10*3/uL Normal <0.11 [facility] Comment on above: Order Comment: Speci men Type: BLOOD SPECIMENOrdering Facility: [facility] Address: [address] [place] [address] Performed By: #### 5 7021-8 ####[facility] LABORATORYCLIA [id number] [address] [place] Basophils/100 WBC (Bld) 0.3 % Normal [facility] Comment on above: Order Comment: Speci men Type: BLOOD SPECIMENOrdering Facility: [facility] Address: [address] [place] [address] Performed By: #### 5 7021-8 ####[facility]ORATORYCLIA [id number] [address] Differential cell count method Nom (Bld) Auto Normal [facility] Comment on above: Order Comment: Speci men Type: BLOOD SPECIMENOrdering Facility: [facility] Address: [address] [place] [address] Performed By: #### 5 7021-8 ####[facility]ORATORYCLIA [id number] [address] Eosinophils (Bld) [#/Vol] 0.42 10*3/uL Normal <0.46 [facility] Comment on above: Order Comment: Speci men Type: BLOOD SPECIMENOrdering Facility: [facility] Address: [address] [place] [address] Performed By: #### 5 7021-8 ####[facility]ORATORYCLIA [id number] [address] Eosinophils/100 WBC (Bld) 3.6 % Normal [facility] Comment on above: Order Comment: Speci men Type: BLOOD SPECIMENOrdering Facility: [facility] Address: [address] [place] [address] Performed By: #### 5 7021-8 ####[facility]ORATORYCLIA [id number] [address] Erythrocyte distribution width (RBC) [Ratio] 17.9 % High 11.5-15.0 [facility] Comment on above: Order Comment: Speci men Type: BLOOD SPECIMENOrdering Facility: [facility] Address: [address] [place] [address] Performed By: #### 5 7021-8 ####[facility]ORATORYCLIA [id number] [address] Hematocrit (Bld) [Volume fraction] 30.8 % Low 39.0-51.0 [facility] Comment on above: Order Comment: Speci men Type: BLOOD SPECIMENOrdering Facility: [facility] Address: [address] [place] [address] Performed By: #### 5 7021-8 ####[facility]ORATORYCLIA [id number] [address] [place] Hemoglobin (Bld) [Mass/Vol] 9.6 g/dL Low 13.0-17.0 [facility] Comment on above: Order Comment: Speci men Type: BLOOD SPECIMENOrdering Facility: [facility] Address: [address] [place] [address] Performed By: #### 5 7021-8 ####[facility]ORATORYCLIA [id number] [address] OF [facility] IMMATURE GRAN % 0.5 % Normal [facility] Comment on above: Order Comment: Speci men Type: BLOOD SPECIMENOrdering Facility: [facility] Address: [address] [place] [address] Performed By: #### 5 7021-8 ####[facility]ORATORYCLIA [id number] [address] IMMATURE GRAN ABS 0.06 k/uL Normal <0.10 [facility] Comment on above: Order Comment: Speci men Type: BLOOD SPECIMENOrdering Facility: [facility] Address: [address] [place] [address] Performed By: #### 5 7021-8 ####[facility]ORATORYCLIA [id number] [address] [place] Lymphocytes (Bld) [#/Vol] 2.17 10*3/uL Normal 1.00-4.00 [facility] Comment on above: Order Comment: Speci men Type: BLOOD SPECIMENOrdering Facility: [facility] Address: [address] [place] [address] Performed By: #### 5 7021-8 ####[facility]ATORYCLIA [id number] [address] Lymphocytes/100 WBC (Bld) 18.7 % Normal [facility] Comment on above: Order Comment: Speci men Type: BLOOD SPECIMENOrdering Facility: [facility] Address: [address] [place] [address] Performed By: #### 5 7021-8 ####[facility]ORATORYCLIA [id number] [address] MCH (RBC) [Entitic mass] 28.9 pg Normal 26.0-34.0 [facility] Comment on above: Order Comment: Speci men Type: BLOOD SPECIMENOrdering Facility: [facility] Address: [address] [place] [address] Performed By: #### 5 7021-8 ####[facility]ORATORYCLIA [id number] [address] STATES OF [facility] MCHC (RBC) [Mass/Vol] 31.2 g/dL Normal 30.5-36.0 [facility] Comment on above: Order Comment: Speci men Type: BLOOD SPECIMENOrdering Facility: [facility] Address: [address] [place] [address] Performed By: #### 5 7021-8 ####[facility]ORATORYCLIA [id number] [address] STATES [facility] MCV (RBC) [Entitic vol] 92.8 fL Normal 80.0-100.0 [facility] Comment on above: Order Comment: Speci men Type: BLOOD SPECIMENOrdering Facility: [facility] Address: [address] [place] [address] Performed By: #### 5 7021-8 ####[facility]ATORYCLIA [id number] [address] Monocytes (Bld) [#/Vol] 0.71 10*3/uL Normal <0.87 [facility] Comment on above: Order Comment: Speci men Type: BLOOD SPECIMENOrdering Facility: [facility] Address: [address] [place] [address] Performed By: #### 5 7021-8 ####[facility]ORYCLIA [id number] [address] [place] Monocytes/100 WBC (Bld) 6.1 % Normal [facility] Comment on above: Order Comment: Speci men Type: BLOOD SPECIMENOrdering Facility: [facility] Address: [address] [place] [address] Performed By: #### 5 7021-8 ####[facility]ORYCLIA [id number] [address] [place] Neutrophils (Bld) [#/Vol] 8.19 10*3/uL High 1.45-7.50 [facility] Comment on above: Order Comment: Speci men Type: BLOOD SPECIMENOrdering Facility: [facility] Address: [address] [place] [address] Performed By: #### 5 7021-8 ####[facility]ORATORYCLIA [id number] [address] [place] Neutrophils/100 WBC (Bld) 70.8 % Normal [facility] Comment on above: Order Comment: Speci men Type: BLOOD SPECIMENOrdering Facility: [facility] Address: [address] [place] [address] Performed By: #### 5 7021-8 ####[facility]ORYCLIA [id number] [address] [place] Nucleated RBC (Bld) [#/Vol] 10*3/uL Normal <0.01 [facility] Comment on above: Order Comment: Speci men Type: BLOOD SPECIMENOrdering Facility: [facility] Address: [address] [place] [address] Performed By: #### 5 7021-8 ####[facility]ORYCLIA [id number] [address] [place] Nucleated RBC/100 WBC (Bld) [Ratio] 0.0 /100 WBC Normal [facility] Comment on above: Order Comment: Speci men Type: BLOOD SPECIMENOrdering Facility: [facility] Address: [address] [place] [address] Performed By: #### 5 7021-8 ####[facility]ORATORYCLIA [id number] [address] Platelet mean volume (Bld) [Entitic vol] 9.6 fL Normal 9.0-12.7 [facility] Comment on above: Order Comment: Speci men Type: BLOOD SPECIMENOrdering Facility: [facility] Address: [address] [place], [place] [address] Performed By: #### 5 7021-8 ####[facility] LABORATORYCLIA [id number] [address] STATES OF [facility] Platelets (Bld) [#/Vol] 339 10*3/uL Normal 150-400 [facility] Comment on above: Order Comment: Speci men Type: BLOOD SPECIMENOrdering Facility: [facility] Address: [address] [place] [address] Performed By: #### 5 7021-8 ####[facility]ORATORYCLIA [id number] [address] [place] RBC (Bld) [#/Vol] 3.32 10*6/uL Low 4.20-6.00 [facility] Comment on above: Order Comment: Speci men Type: BLOOD SPECIMENOrdering Facility: [facility] Address: [address] [place], [place] [address] Performed By: #### 5 7021-8 ####[facility]ORATORYCLIA [id number] [address] [place] WBC (Bld) [#/Vol] 11.59 10*3/uL High 3.70-11.00 [facility] Comment on above: Order Comment: Speci men Type: BLOOD SPECIMENOrdering Facility: [facility] Address: [address] [place] [address] Performed By: #### 5 7021-8 ####[facility]ORATORYCLIA [id number] [address] [place] CT BRAIN WO IVCONon 08-06-[address] BRAIN WO IVCON Normal [facility] Magnesium SerPl-mCncon 08-05 Magnesium [Mass/Vol] 2.2 mg/dL Normal 1.7-2.3 [facility] Comment on above: Order Comment: Speci men Type: BLOOD SPECIMENOrdering Facility: [facility] Address: [address] [place] [address] Performed By: #### 1 9123-9, 2777-1 ####[facility]ORATORYCLIA [id number] [address] [place] NURSING PROGon 08-05-2021 NURSING PROG Normal [facility] NURSING PROG Normal [facility] NUTRITIONon 08-05-2021 NUTRITION Normal [facility] OPERATIVE NOon 08-05-2021 OPERATIVE NO Normal [facility] Phosphate SerPl-mCncon 08-05 Phosphate [Mass/Vol] 4.6 mg/dL Normal 2.7-4.8 [facility] Comment on above: Order Comment: Speci men Type: BLOOD SPECIMENOrdering Facility: [facility] Address: [address] [place] [address] Performed By: #### 1 9123-9, 27711-04 ####[facility]ORATORYCLIA [id number] [address] [place] THERAPY NTon 08-05-2021 THERAPY NT Normal [facility] THERAPY NT Normal [facility] Urinalysis complete panel (U )on 08-05-2021 Bilirubin Ql (U) Negative Normal Negative [facility] Comment on above: Order Comment: Speci men Type: URINE SPECIMENOrdering Facility: [facility] Address: [address] [place] [address] Performed By: #### 2 4356-8 ####[facility]ORATORYCLIA [id number] [address] [place] Clarity (Unsp spec) Clear Normal Clear [facility] Comment on above: Order Comment: Speci men Type: URINE SPECIMENOrdering Facility: [facility] Address: [address] [place] [address] Performed By: #### 2 4356-8 ####[facility] LABORATORYCLIA [id number] [address] OF [facility] Color (U) Light Yellow Normal yellow [facility] Comment on above: Order Comment: Speci men Type: URINE SPECIMENOrdering Facility: [facility] Address: [address] [place] [address] Performed By: #### 2 4356-8 ####[facility]ORATORYCLIA [id number] [address] Epithelial cells LM.HPF (Urine sed) [#/Area] Few Abnormal None Seen [facility] Comment on above: Order Comment: Speci men Type: URINE SPECIMENOrdering Facility: [facility] Address: [address] [place] [address] Performed By: #### 2 4356-8 ####[facility] LABORATORYCLIA [id number] [address] Glucose Test strip (U) [Mass/Vol] Negative Normal Negative [facility] Comment on above: Order Comment: Speci men Type: URINE SPECIMENOrdering Facility: [facility] Address: [address] [place] [address] Performed By: #### 2 4356-8 ####[facility] LABORATORYCLIA [id number] [address] Hemoglobin Ql (U) Negative Normal Negative [facility] Comment on above: Order Comment: Speci men Type: URINE SPECIMENOrdering Facility: [facility] Address: [address] [place] [address] Performed By: #### 2 4356-8 ####[facility] LABORATORYCLIA [id number] [address] [place] Hyaline casts (Urine sed) [#/Area] 1-3 /LPF Abnormal 0 /LPF [facility] Comment on above: Order Comment: Speci men Type: URINE SPECIMENOrdering Facility: [facility] Address: [address] [place] [address] Performed By: #### 2 4356-8 ####[facility] LABORATORYCLIA [id number] [address] Ketones Ql (U) Negative Normal Negative [facility] Comment on above: Order Comment: Speci men Type: URINE SPECIMENOrdering Facility: [facility] Address: [address] [place] [address] Performed By: #### 2 4356-8 ####[facility] LABORATORYCLIA [id number] [address] Leukocyte esterase Test strip Ql (U) Negative Normal Negative [facility] Comment on above: Order Comment: Speci men Type: URINE SPECIMENOrdering Facility: [facility] Address: [address] [place] [address] Performed By: #### 2 4356-8 ####[facility] LABORATORYCLIA [id number] [address] STATES [facility] Nitrite Ql (U) Negative Normal Negative [facility] Comment on above: Order Comment: Speci men Type: URINE SPECIMENOrdering Facility: [facility] Address: [address] [place] [address] Performed By: #### 2 4356-8 ####[facility]ORATORYCLIA [id number] [address] [place] pH (U) 6.0 [pH] Normal 5.0-8.0 [facility] Comment on above: Order Comment: Speci men Type: URINE SPECIMENOrdering Facility: [facility] Address: [address] [place] [address] Performed By: #### 2 4356-8 ####[facility]ORATORYCLIA [id number] [address] [place] Protein (U) [Mass/Vol] Negative Normal Negative [facility] Comment on above: Order Comment: Speci men Type: URINE SPECIMENOrdering Facility: [facility] Address: [address] [place] [address] Performed By: #### 2 4356-8 ####[facility] LABORATORYCLIA [id number] [address] STATES [facility] RBC LM.HPF (Urine sed) [#/Area] 0-3 /HPF Normal 0-3 /HPF [facility] Comment on above: Order Comment: Speci men Type: URINE SPECIMENOrdering Facility: [facility] Address: [address] [place] [address] Performed By: #### 2 4356-8 ####[facility] [id number] [address] Specific gravity (U) [Rel density] 1.015 Normal 1.005-1.030 [facility] Comment on above: Order Comment: Speci men Type: URINE SPECIMENOrdering Facility: [facility] Address: [address] [place] [address] Performed By: #### 2 4356-8 ####[facility] LABORATORYCLIA [id number] [address] Urobilinogen Ql (U) Normal Normal Negative [facility] Comment on above: Order Comment: Speci men Type: URINE SPECIMENOrdering Facility: [facility] Address: [address] [place] [address] Performed By: #### 2 4356-8 ####[facility] LABORATORYCLIA [id number] [address] [place] WBC LM.HPF (Urine sed) [#/Area] 0-5 /HPF Normal 0-5 /HPF [facility] Comment on above: Order Comment: Speci men Type: URINE SPECIMENOrdering Facility: [facility] Address: [address] [place] [address] Performed By: #### 2 4356-8 ####[facility] LABORATORYCLIA [id number] [address] STATES OF [facility] XR ABDOMEN 1V SUPINEon 08-05 XR ABDOMEN 1V SUPINE Normal [facility] XR CHEST 1V FRONTALon 2021 XR CHEST 1V FRONTAL Normal [facility] XR CHEST 1V FRONTAL Normal [facility] XR NECK SOFT TISSUE 2V AP/LA Ton 08-05-2021 XR NECK SOFT TISSUE 2V AP/LAT Normal [facility] XR SKULL 2V AP/LATon 022 XR SKULL 2V AP/LAT Normal [facility] ALLIED HEALTHon 08-04-2021 ALLIED HEALTH Normal [facility] Bacteria Bld Culton 08-05-19 22 Bacteria identified Cx Nom (Bld) CULTURE, BLOOD: No growth 5 days Normal [facility] Comment on above: Performed By: #### 6 00-7 ####[facility] LABORATORYCLIA [id number] [address] STATES OF [facility] Bacteria identified Cx Nom (Bld) CULTURE, BLOOD: No growth 5 days Normal [facility] Comment on above: Performed By: #### 6 00-7 ####[facility] LABORATORYCLIA [id number] [address] STATES OF [facility] CBC W Auto Differential pane l (Bld)on 08-04-2021 Basophils (Bld) [#/Vol] 0.05 10*3/uL Normal <0.11 [facility] Comment on above: Order Comment: Speci men Type: BLOOD SPECIMENOrdering Facility: [facility] Address: [address] [place] [address] Performed By: #### 5 7021-8 ####[facility] LABORATORYCLIA [id number] [address] [place] Basophils/100 WBC (Bld) 0.4 % Normal [facility] Comment on above: Order Comment: Speci men Type: BLOOD SPECIMENOrdering Facility: [facility] Address: [address] [place] [address] Performed By: #### 5 7021-8 ####[facility]ORATORYCLIA [id number] [address] Differential cell count method Nom (Bld) Auto Normal [facility] Comment on above: Order Comment: Speci men Type: BLOOD SPECIMENOrdering Facility: [facility] Address: [address] [place] [address] Performed By: #### 5 7021-8 ####[facility] LABORATORYCLIA [id number] [place] [address] [place] Eosinophils (Bld) [#/Vol] 0.21 10*3/uL Normal <0.46 [facility] Comment on above: Order Comment: Speci men Type: BLOOD SPECIMENOrdering Facility: [facility] Address: [address] [place] [address] Performed By: #### 5 7021-8 ####[facility] LABORATORYCLIA [id number] [address] Eosinophils/100 WBC (Bld) 1.7 % Normal [facility] Comment on above: Order Comment: Speci men Type: BLOOD SPECIMENOrdering Facility: [facility] Address: [address] [place] [address] Performed By: #### 5 7021-8 ####[facility] LABORATORYCLIA [id number] [address] Erythrocyte distribution width (RBC) [Ratio] 18.1 % High 11.5-15.0 [facility] Comment on above: Order Comment: Speci men Type: BLOOD SPECIMENOrdering Facility: [facility] Address: [address] [place] [address] Performed By: #### 5 7021-8 ####[facility] LABORATORYCLIA [id number] [address] Hematocrit (Bld) [Volume fraction] 32.0 % Low 39.0-51.0 [facility] Comment on above: Order Comment: Speci men Type: BLOOD SPECIMENOrdering Facility: [facility] Address: [address] [place] [address] Performed By: #### 5 7021-8 ####[facility] LABORATORYCLIA [id number] [address] Hemoglobin (Bld) [Mass/Vol] 10.0 g/dL Low 13.0-17.0 [facility] Comment on above: Order Comment: Speci men Type: BLOOD SPECIMENOrdering Facility: [facility] Address: [address] [place] [address] Performed By: #### 5 7021-8 ####[facility] LABORATORYCLIA [id number] [address] IMMATURE GRAN % 0.6 % Normal [facility] Comment on above: Order Comment: Speci men Type: BLOOD SPECIMENOrdering Facility: [facility] Address: [address] [place] [address] Performed By: #### 5 7021-8 ####[facility] LABORATORYCLIA [id number] [address] IMMATURE GRAN ABS 0.08 k/uL Normal <0.10 [facility] Comment on above: Order Comment: Speci men Type: BLOOD SPECIMENOrdering Facility: [facility] Address: [address] [place] [address] Performed By: #### 5 7021-8 ####[facility] LABORATORYCLIA [id number] [address] [place] Lymphocytes (Bld) [#/Vol] 2.55 10*3/uL Normal 1.00-4.00 [facility] Comment on above: Order Comment: Speci men Type: BLOOD SPECIMENOrdering Facility: [facility] Address: [address] [place] [address] Performed By: #### 5 7021-8 ####[facility] LABORATORYCLIA [id number] [address] Lymphocytes/100 WBC (Bld) 20.5 % Normal [facility] Comment on above: Order Comment: Speci men Type: BLOOD SPECIMENOrdering Facility: [facility] Address: [address] [place] [address] Performed By: #### 5 7021-8 ####[facility] LABORATORYCLIA [id number] [address] MCH (RBC) [Entitic mass] 28.9 pg Normal 26.0-34.0 [facility] Comment on above: Order Comment: Speci men Type: BLOOD SPECIMENOrdering Facility: [facility] Address: [address] [place] [address] Performed By: #### 5 7021-8 ####[facility] LABORATORYCLIA [id number] [address] MCHC (RBC) [Mass/Vol] 31.3 g/dL Normal 30.5-36.0 [facility] Comment on above: Order Comment: Speci men Type: BLOOD SPECIMENOrdering Facility: [facility] Address: [address] [place] [address] Performed By: #### 5 7021-8 ####[facility] LABORATORYCLIA [id number] [address] MCV (RBC) [Entitic vol] 92.5 fL Normal 80.0-100.0 [facility] Comment on above: Order Comment: Speci men Type: BLOOD SPECIMENOrdering Facility: [facility] Address: [address] [place] [address] Performed By: #### 5 7021-8 ####[facility] LABORATORYCLIA [id number] [address] Monocytes (Bld) [#/Vol] 0.85 10*3/uL Normal <0.87 [facility] Comment on above: Order Comment: Speci men Type: BLOOD SPECIMENOrdering Facility: [facility] Address: [address] [place] [address] Performed By: #### 5 7021-8 ####[facility] LABORATORYCLIA [id number] [place] [address] [place] Monocytes/100 WBC (Bld) 6.8 % Normal [facility] Comment on above: Order Comment: Speci men Type: BLOOD SPECIMENOrdering Facility: [facility] Address: [address] [place] [address] Performed By: #### 5 7021-8 ####[facility]ORATORYCLIA [id number] [place] [address] [place] Neutrophils (Bld) [#/Vol] 8.68 10*3/uL High 1.45-7.50 [facility] Comment on above: Order Comment: Speci men Type: BLOOD SPECIMENOrdering Facility: [facility] Address: [address] [place] [address] Performed By: #### 5 7021-8 ####[facility]ORATORYCLIA [id number] [address] [place] Neutrophils/100 WBC (Bld) 70.0 % Normal [facility] Comment on above: Order Comment: Speci men Type: BLOOD SPECIMENOrdering Facility: [facility] Address: [address] [place] [address] Performed By: #### 5 7021-8 ####[facility]ORATORYCLIA [id number] [address] [place] Nucleated RBC (Bld) [#/Vol] 10*3/uL Normal <0.01 [facility] Comment on above: Order Comment: Speci men Type: BLOOD SPECIMENOrdering Facility: [facility] Address: [address] [place] [address] Performed By: #### 5 7021-8 ####[facility]ORATORYCLIA [id number] [address] [place] Nucleated RBC/100 WBC (Bld) [Ratio] 0.0 /100 WBC Normal [facility] Comment on above: Order Comment: Speci men Type: BLOOD SPECIMENOrdering Facility: [facility] Address: [address] [place] [address] Performed By: #### 5 7021-8 ####[facility] LABORATORYCLIA [id number] [address] [place] Platelet mean volume (Bld) [Entitic vol] 10.0 fL Normal 9.0-12.7 [facility] Comment on above: Order Comment: Speci men Type: BLOOD SPECIMENOrdering Facility: [facility] Address: [address] [place] [address] Performed By: #### 5 7021-8 ####[facility] LABORATORYCLIA [id number] [place] [address] [place] Platelets (Bld) [#/Vol] 393 10*3/uL Normal 150-400 [facility] Comment on above: Order Comment: Speci men Type: BLOOD SPECIMENOrdering Facility: [facility] Address: [address] [place] [address] Performed By: #### 5 7021-8 ####[facility] LABORATORYCLIA [id number] [address] STATES OF [facility] RBC (Bld) [#/Vol] 3.46 10*6/uL Low 4.20-6.00 [facility] Comment on above: Order Comment: Speci men Type: BLOOD SPECIMENOrdering Facility: [facility] Address: [address] [place] [address] Performed By: #### 5 7021-8 ####[facility] LABORATORYCLIA [id number] [place] [address] [place] WBC (Bld) [#/Vol] 12.42 10*3/uL High 3.70-11.00 [facility] Comment on above: Order Comment: Speci men Type: BLOOD SPECIMENOrdering Facility: [facility] Address: [address] [place] [address] Performed By: #### 5 7021-8 ####[facility] LABORATORYCLIA [id number] [address] [place] BRAIN WO IVCONon 08-05-[address] BRAIN WO IVCON Normal [facility] Lactate (Bld) [Moles/Vol]on 08-04-2021 Lactate [Moles/Vol] 1.4 mmol/L Normal 0.5-2.2 [facility] Comment on above: Order Comment: Speci men Type: BLOOD SPECIMENOrdering Facility: [facility] Address: [address] [place] [address] Performed By: #### 3 2693-4 ####[facility] LABORATORYCLIA [id number] [address] PROCALCITONIN (LAB)on 2021 Procalcitonin [Mass/Vol] 0.08 ng/mL Normal <0.09 [facility] Comment on above: Order Comment: Speci men Type: BLOOD SPECIMENOrdering Facility: [facility] Address: [address] [place] [address] Result Comment: For a guided interpretation of test results, please visit the Change in Procalcitonin Calculator, [email or web address]. Performed By: #### P ROCAL ####[facility]'S CENTERIA [id number] [address] STATES OF [facility] Prealbumin [Mass/Vol]on 07-07 Prealbumin Nephelometry [Mass/Vol] 35 mg/dL Normal 17-36 [facility] Comment on above: Order Comment: Speci men Type: BLOOD SPECIMENOrdering Facility: [facility] Address: [address] [place] [address] Performed By: #### 1 4338-8 ####[facility] LABORATORYIA [id number] [place] [address] [place] SARS-CoV-2 RNA Resp Ql MEGAN+p robeon 08-04-2021 SARS-CoV-2 (COVID-19) RNA MEGAN+probe Ql (Resp) COVID 19 RESULT: SARS-CoV-2 (Agent of COVID-19) Not Detected by RT-PCR or equivalent method. This test has been authorized by FDA under an Emergency Use Authorization (EUA). Normal [facility] Comment on above: Performed By: #### 9 4500-6 ####[facility] LABORATORYCLIA [id number] [address] TYPE AND SCREENon 08-04-2021 ABO O Normal [facility] Comment on above: Order Comment: Speci men Type: BLOOD SPECIMENOrdering Facility: [facility] Address: [address] [place] [address] Performed By: #### T SCR ####[facility] BLOOD BANKCLIA [id number] [address] HISTORICAL AB SCR STATUS Negative Normal [facility] Comment on above: Order Comment: Speci men Type: BLOOD SPECIMENOrdering Facility: [facility] Address: [address] [place] [address] Performed By: #### T SCR ####[facility] BLOOD BANKCLIA [id number] [address] Rh Nom (Bld) Positive Normal [facility] Comment on above: Order Comment: Speci men Type: BLOOD SPECIMENOrdering Facility: [facility] Address: [address] [place] [address] Performed By: #### T SCR ####[facility] BLOOD BANKCLIA [id number] [address] TYPE AND SCREEN EXPIRATION 08/07/2021 23:59 Normal [facility] Comment on above: Order Comment: Speci men Type: BLOOD SPECIMENOrdering Facility: [facility] Address: [address] [place] [address] Performed By: #### T SCR ####[facility] BLOOD BANKCLIA [id number] [address] [place] aPTT PPPon 08-04-2021 aPTT Coag (PPP) [Time] 51.8 s High 23.0-32.4 [facility] Comment on above: Order Comment: Speci men Type: BLOOD SPECIMENOrdering Facility: [facility] Address: [address] [place] [address] Performed By: #### 1 4979-9 ####[facility] LABORATORYCLIA [id number] [place] [address] [place] Basic metabolic 2000 panelon 08-03-2021 Anion gap [Moles/Vol] 9 mmol/L Normal 9-18 [facility] Comment on above: Order Comment: Speci men Type: BLOOD SPECIMENOrdering Facility: [facility] Address: [address] [place] [address] Performed By: #### 2 4321-2, , 2776- ####[facility] LABORATORYCLIA [id number] [place] [address] [place] Calcium [Mass/Vol] 9.3 mg/dL Normal 8.5-10.2 [facility] Comment on above: Order Comment: Speci men Type: BLOOD SPECIMENOrdering Facility: [facility] Address: [address] [place] [address] Performed By: #### 2 4321-2, , 2776- ####[facility] LABORATORYCLIA [id number] [place] [address] [place] Chloride [Moles/Vol] 97 mmol/L Normal 97-105 [facility] Comment on above: Order Comment: Speci men Type: BLOOD SPECIMENOrdering Facility: [facility] Address: [address] [place] [address] Performed By: #### 2 4321-2, , 2776-05 ####[facility] LABORATORYCLIA [id number] [place] [address] [place] CO2 [Moles/Vol] 27 mmol/L Normal 22-30 [facility] Comment on above: Order Comment: Speci men Type: BLOOD SPECIMENOrdering Facility: [facility] Address: [address] [place] [address] Performed By: #### 2 4321-2, , 2776- ####[facility] LABORATORYCLIA [id number] [place] [address] [facility] Creatinine [Mass/Vol] 0.63 mg/dL Low 0.73-1.22 [facility] Comment on above: Order Comment: Shira feldman Type: BLOOD SPECIMENOrdering Facility: [facility] Address: [address] [address] Performed By: #### 2 4321-2, , 2776-05 ####[facility] LABORATORYCLIA [id number] [address] ESTIMATED GLOMERULAR FILTRATION RATE 103 mL/min/1.73m??? Normal >=60 [facility] Comment on above: Order Comment: Shira feldman Type: BLOOD SPECIMENOrdering Facility: [facility] Address: [address] [place] [address] Result Comment: Luzmaria mated Glomerular Filtration Rate [...] By: #### 2 4321-2, , 2776-05 ####[facility]ITAL[facility] [id number] [address] [place] Glucose [Mass/Vol] 136 mg/dL High 74-99 [facility] Comment on above: Order Comment: Shira feldman Type: BLOOD SPECIMENOrdering Facility: [facility] Address: [address] [address] Result Comment: The [place] Diabetes [employer] (ADA) provides guidance for cutoff [...] Standards of Medical Care in Diabetes 2016, [place] [employer]. Diabetes Care. 2016.39(Suppl 1). Performed By: #### 2 4321-2, , 2776-05 ####[facility] LABORATORYCLIA [id number] [place] [address] [place] Potassium [Moles/Vol] 4.1 mmol/L Normal 3.7-5.1 [facility] Comment on above: Order Comment: Speci men Type: BLOOD SPECIMENOrdering Facility: [facility] Address: [address] [place] [address] Performed By: #### 2 4321-2, , 2776-05 ####[facility] LABORATORYCLIA [id number] [address] STATES OF [facility] Sodium [Moles/Vol] 133 mmol/L Low 136-144 [facility] Comment on above: Order Comment: Speci men Type: BLOOD SPECIMENOrdering Facility: [facility] Address: [address] [place] [address] Performed By: #### 2 4321-2, , 2776-05 ####[facility] LABORATORYCLIA [id number] [address] STATES [facility] Urea nitrogen [Mass/Vol] 40 mg/dL High 9-24 [facility] Comment on above: Order Comment: Shira feldman Type: BLOOD SPECIMENOrdering Facility: [facility] Address: [address] [place] [address] Performed By: #### 2 4321-2, , 2776-05 ####[facility] LABORATORYCLIA [id number] [address] [place] CASE MANAGEMon 08-03-2021 CASE MANAGEM Normal [facility] CBC W Auto Differential pane l (Bld)on 08-03-2021 Basophils (Bld) [#/Vol] 0.06 10*3/uL Normal <0.11 [facility] Comment on above: Order Comment: Speci men Type: BLOOD SPECIMENOrdering Facility: [facility] Address: [address] [place] [address] Performed By: #### 5 7021-8 ####[facility] LABORATORYCLIA [id number] [address] [place] Basophils/100 WBC (Bld) 0.5 % Normal [facility] Comment on above: Order Comment: Speci men Type: BLOOD SPECIMENOrdering Facility: [facility] Address: [address] [place] [address] Performed By: #### 5 7021-8 ####[facility] LABORATORYCLIA [id number] [address] Differential cell count method Nom (Bld) Auto Normal [facility] Comment on above: Order Comment: Speci men Type: BLOOD SPECIMENOrdering Facility: [facility] Address: [address] [place] [address] Performed By: #### 5 7021-8 ####[facility] LABORATORYCLIA [id number] [address] [place] Eosinophils (Bld) [#/Vol] 0.23 10*3/uL Normal <0.46 [facility] Comment on above: Order Comment: Speci men Type: BLOOD SPECIMENOrdering Facility: [facility] Address: [address] [place] [address] Performed By: #### 5 7021-8 ####[facility] LABORATORYCLIA [id number] [address] [place] [facility] Eosinophils/100 WBC (Bld) 1.8 % Normal [place] [facility] Comment on above: Order Comment: Speci men Type: BLOOD SPECIMENOrdering Facility: [facility] Address: [address] [place] [address] Performed By: #### 5 7021-8 ####[facility]ORATORYCLIA [id number] [address] [place] Erythrocyte distribution width (RBC) [Ratio] 17.6 % High 11.5-15.0 [facility] Comment on above: Order Comment: Speci men Type: BLOOD SPECIMENOrdering Facility: [facility] Address: [address] [place] [address] Performed By: #### 5 7021-8 ####[facility] LABORATORYCLIA [id number] [address] OF [facility] Hematocrit (Bld) [Volume fraction] 30.7 % Low 39.0-51.0 [facility] Comment on above: Order Comment: Speci men Type: BLOOD SPECIMENOrdering Facility: [facility] Address: [address] [place] [address] Performed By: #### 5 7021-8 ####[facility] LABORATORYCLIA [id number] [address] OF [facility] Hemoglobin (Bld) [Mass/Vol] 9.3 g/dL Low 13.0-17.0 [facility] Comment on above: Order Comment: Speci men Type: BLOOD SPECIMENOrdering Facility: [facility] Address: [address] [place] [address] Performed By: #### 5 7021-8 ####[facility]ORATORYCLIA [id number] [address] IMMATURE GRAN % 0.6 % Normal [facility] Comment on above: Order Comment: Speci men Type: BLOOD SPECIMENOrdering Facility: [facility] Address: [address] [place] [address] Performed By: #### 5 7021-8 ####[facility]ORATORYCLIA [id number] [address] IMMATURE GRAN ABS 0.08 k/uL Normal <0.10 [facility] Comment on above: Order Comment: Speci men Type: BLOOD SPECIMENOrdering Facility: [facility] Address: [address] [place] [address] Performed By: #### 5 7021-8 ####[facility]ATORYCLIA [id number] [address] OF [facility] Lymphocytes (Bld) [#/Vol] 2.45 10*3/uL Normal 1.00-4.00 [facility] Comment on above: Order Comment: Speci men Type: BLOOD SPECIMENOrdering Facility: [facility] Address: [address] [place] [address] Performed By: #### 5 7021-8 ####[facility] LABORATORYCLIA [id number] [address] OF [facility] Lymphocytes/100 WBC (Bld) 19.7 % Normal [facility] Comment on above: Order Comment: Speci men Type: BLOOD SPECIMENOrdering Facility: [facility] Address: [address] [place] [address] Performed By: #### 5 7021-8 ####[facility] LABORATORYCLIA [id number] [address] STATES OF [facility] MCH (RBC) [Entitic mass] 28.2 pg Normal 26.0-34.0 [facility] Comment on above: Order Comment: Speci men Type: BLOOD SPECIMENOrdering Facility: [facility] Address: [address] [place] [address] Performed By: #### 5 7021-8 ####[facility] LABORATORYCLIA [id number] [address] [place] MCHC (RBC) [Mass/Vol] 30.3 g/dL Low 30.5-36.0 [facility] Comment on above: Order Comment: Speci men Type: BLOOD SPECIMENOrdering Facility: [facility] Address: [address] [place] [address] Performed By: #### 5 7021-8 ####[facility] LABORATORYCLIA [id number] [address] STATES [facility] MCV (RBC) [Entitic vol] 93.0 fL Normal 80.0-100.0 [facility] Comment on above: Order Comment: Speci men Type: BLOOD SPECIMENOrdering Facility: [facility] Address: [address] [place] [address] Performed By: #### 5 7021-8 ####[facility]ATORYCLIA [id number] [address] [place] Monocytes (Bld) [#/Vol] 0.72 10*3/uL Normal <0.87 [facility] Comment on above: Order Comment: Speci men Type: BLOOD SPECIMENOrdering Facility: [facility] Address: [address] [place] [address] Performed By: #### 5 7021-8 ####[facility] LABORATORYCLIA [id number] [address] [place] Monocytes/100 WBC (Bld) 5.8 % Normal [facility] Comment on above: Order Comment: Speci men Type: BLOOD SPECIMENOrdering Facility: [facility] Address: [address] [place] [address] Performed By: #### 5 7021-8 ####[facility] LABORATORYCLIA [id number] [address] [place] Neutrophils (Bld) [#/Vol] 8.92 10*3/uL High 1.45-7.50 [facility] Comment on above: Order Comment: Speci men Type: BLOOD SPECIMENOrdering Facility: [facility] Address: [address] [place] [address] Performed By: #### 5 7021-8 ####[facility]ATORYCLIA [id number] [address] [place] Neutrophils/100 WBC (Bld) 71.6 % Normal [facility] Comment on above: Order Comment: Speci men Type: BLOOD SPECIMENOrdering Facility: [facility] Address: [address] [place] [address] Performed By: #### 5 7021-8 ####[facility]ORATORYCLIA [id number] [address] [place] Nucleated RBC (Bld) [#/Vol] 10*3/uL Normal <0.01 [facility] Comment on above: Order Comment: Speci men Type: BLOOD SPECIMENOrdering Facility: [facility] Address: [address] [place] [address] Performed By: #### 5 7021-8 ####[facility] LABORATORYCLIA [id number] [address] [place] Nucleated RBC/100 WBC (Bld) [Ratio] 0.0 /100 WBC Normal [facility] Comment on above: Order Comment: Speci men Type: BLOOD SPECIMENOrdering Facility: [facility] Address: [address] [place] [address] Performed By: #### 5 7021-8 ####[facility] LABORATORYCLIA [id number] [place] [address] [place] Platelet mean volume (Bld) [Entitic vol] 10.2 fL Normal 9.0-12.7 [facility] Comment on above: Order Comment: Speci men Type: BLOOD SPECIMENOrdering Facility: [facility] Address: [address] [place] [address] Performed By: #### 5 7021-8 ####[facility] LABORATORYCLIA [id number] [address] [place] Platelets (Bld) [#/Vol] 352 10*3/uL Normal 150-400 [facility] Comment on above: Order Comment: Speci men Type: BLOOD SPECIMENOrdering Facility: [facility] Address: [address] [place] [address] Performed By: #### 5 7021-8 ####[facility] LABORATORYCLIA [id number] [address] [place] RBC (Bld) [#/Vol] 3.30 10*6/uL Low 4.20-6.00 [facility] Comment on above: Order Comment: Speci men Type: BLOOD SPECIMENOrdering Facility: [facility] Address: [address] [place] [address] Performed By: #### 5 7021-8 ####[facility] LABORATORYCLIA [id number] [place] [address] [place] WBC (Bld) [#/Vol] 12.46 10*3/uL High 3.70-11.00 [facility] Comment on above: Order Comment: Speci men Type: BLOOD SPECIMENOrdering Facility: [facility] Address: [address] [place] [address] Performed By: #### 5 7021-8 ####[facility]ORATORYCLIA [id number] [address] [place] CONSULT PROGon 08-03-2021 CONSULT PROG Normal [facility] Magnesium SerPl-ncon 08-03 Magnesium [Mass/Vol] 2.2 mg/dL Normal 1.7-2.3 [facility] Comment on above: Order Comment: Speci men Type: BLOOD SPECIMENOrdering Facility: [facility] Address: [address] [place] [address] Performed By: #### 2 4321-2, 87370-5, 2777-1 ####[facility]ITALCLIA [id number] [address] NURSING PROGon 08-03-2021 NURSING PROG Normal [facility] Phosphate SerPl-mCncon 08-03 Phosphate [Mass/Vol] 4.2 mg/dL Normal 2.7-4.8 [facility] Comment on above: Order Comment: Speci men Type: BLOOD SPECIMENOrdering Facility: [facility] Address: [address] [place] [address] Performed By: #### 2 4321-2, 12224-6, 2777-1 ####[facility] LABORATORYCLIA [id number] [address] aPTT PPPon 08-03-2021 aPTT Coag (PPP) [Time] 50.0 s High 23.0-32.4 [facility] Comment on above: Order Comment: Speci men Type: BLOOD SPECIMENOrdering Facility: [facility] Address: [address] [address] Performed By: #### 1 4979-9 ####[facility]ATORYCLIA [id number] [address] [place] CBC W Auto Differential pane l (Bld)on 08-02-2021 Basophils (Bld) [#/Vol] 10*3/uL Normal <0.11 [facility] Comment on above: Order Comment: Speci men Type: BLOOD SPECIMENOrdering Facility: [facility] Address: [address] [place] [address] Performed By: #### 5 7021-8 ####[facility]ATORYCLIA [id number] [address] [place] [facility] Basophils/100 WBC (Bld) 0.2 % Normal [facility] Comment on above: Order Comment: Speci men Type: BLOOD SPECIMENOrdering Facility: [facility] Address: [address] [place] [address] Performed By: #### 5 7021-8 ####[facility]ORATORYCLIA [id number] [address] Differential cell count method Nom (Bld) Auto Normal [facility] Comment on above: Order Comment: Speci men Type: BLOOD SPECIMENOrdering Facility: [facility] Address: [address] [place] [address] Performed By: #### 5 7021-8 ####[facility]ORYCLIA [id number] [address] [place] Eosinophils (Bld) [#/Vol] 10*3/uL Normal <0.46 [facility] Comment on above: Order Comment: Speci men Type: BLOOD SPECIMENOrdering Facility: [facility] Address: [address] [place] [address] Performed By: #### 5 7021-8 ####[facility]ATORYCLIA [id number] [address] [place] Eosinophils/100 WBC (Bld) 0.0 % Normal [facility] Comment on above: Order Comment: Speci men Type: BLOOD SPECIMENOrdering Facility: [facility] Address: [address] [place] [address] Performed By: #### 5 7021-8 ####[facility] LABORATORYCLIA [id number] [address] Erythrocyte distribution width (RBC) [Ratio] 17.3 % High 11.5-15.0 [facility] Comment on above: Order Comment: Speci men Type: BLOOD SPECIMENOrdering Facility: [facility] Address: [address] [place] [address] Performed By: #### 5 7021-8 ####[facility]ORATORYCLIA [id number] [address] Hematocrit (Bld) [Volume fraction] 30.8 % Low 39.0-51.0 [facility] Comment on above: Order Comment: Speci men Type: BLOOD SPECIMENOrdering Facility: [facility] Address: [address] [place] [address] Performed By: #### 5 7021-8 ####[facility]ORATORYCLIA [id number] [address] Hemoglobin (Bld) [Mass/Vol] 9.7 g/dL Low 13.0-17.0 [facility] Comment on above: Order Comment: Speci men Type: BLOOD SPECIMENOrdering Facility: [facility] Address: [address] [place] [address] Performed By: #### 5 7021-8 ####[facility]ORATORYCLIA [id number] [address] IMMATURE GRAN % 0.5 % Normal [facility] Comment on above: Order Comment: Speci men Type: BLOOD SPECIMENOrdering Facility: [facility] Address: [address] [place] [address] Performed By: #### 5 7021-8 ####[facility]ORATORYCLIA [id number] [address] IMMATURE GRAN ABS 0.07 k/uL Normal <0.10 [facility] Comment on above: Order Comment: Speci men Type: BLOOD SPECIMENOrdering Facility: [facility] Address: [address] [place] [address] Performed By: #### 5 7021-8 ####[facility]ORATORYCLIA [id number] [address] OF [facility] Lymphocytes (Bld) [#/Vol] 1.60 10*3/uL Normal 1.00-4.00 [facility] Comment on above: Order Comment: Speci men Type: BLOOD SPECIMENOrdering Facility: [facility] Address: [address] [place] [address] Performed By: #### 5 7021-8 ####[facility]ORATORYCLIA [id number] [address] Lymphocytes/100 WBC (Bld) 12.1 % Normal [facility] Comment on above: Order Comment: Speci men Type: BLOOD SPECIMENOrdering Facility: [facility] Address: [address] [place] [address] Performed By: #### 5 7021-8 ####[facility]ORATORYCLIA [id number] [address] MCH (RBC) [Entitic mass] 28.6 pg Normal 26.0-34.0 [facility] Comment on above: Order Comment: Speci men Type: BLOOD SPECIMENOrdering Facility: [facility] Address: [address] [place] [address] Performed By: #### 5 7021-8 ####[facility]ORATORYCLIA [id number] [address] MCHC (RBC) [Mass/Vol] 31.5 g/dL Normal 30.5-36.0 [facility] Comment on above: Order Comment: Speci men Type: BLOOD SPECIMENOrdering Facility: [facility] Address: [address] [place] [address] Performed By: #### 5 7021-8 ####[facility]ORYCLIA [id number] [address] [place] MCV (RBC) [Entitic vol] 90.9 fL Normal 80.0-100.0 [facility] Comment on above: Order Comment: Speci men Type: BLOOD SPECIMENOrdering Facility: [facility] Address: [address] [place] [address] Performed By: #### 5 7021-8 ####[facility]ORYCLIA [id number] [address] [place] Monocytes (Bld) [#/Vol] 0.39 10*3/uL Normal <0.87 [facility] Comment on above: Order Comment: Speci men Type: BLOOD SPECIMENOrdering Facility: [facility] Address: [address] [place] [address] Performed By: #### 5 7021-8 ####[facility]ORYCLIA [id number] [address] Monocytes/100 WBC (Bld) 3.0 % Normal [facility] Comment on above: Order Comment: Speci men Type: BLOOD SPECIMENOrdering Facility: [facility] Address: [address] [place] [address] Performed By: #### 5 7021-8 ####[facility]ORATORYCLIA [id number] [address] [place] Neutrophils (Bld) [#/Vol] 11.09 10*3/uL High 1.45-7.50 [facility] Comment on above: Order Comment: Speci men Type: BLOOD SPECIMENOrdering Facility: [facility] Address: [address] [place] [address] Performed By: #### 5 7021-8 ####[facility]ORATORYCLIA [id number] [address] [place] Neutrophils/100 WBC (Bld) 84.2 % Normal [facility] Comment on above: Order Comment: Speci men Type: BLOOD SPECIMENOrdering Facility: [facility] Address: [address] Performed By: #### 5 7021-8 ####[facility]ORATORYCLIA [id number] [address] Nucleated RBC (Bld) [#/Vol] 10*3/uL Normal <0.01 [facility] Comment on above: Order Comment: Speci men Type: BLOOD SPECIMENOrdering Facility: [facility] Address: [address] Performed By: #### 5 7021-8 ####[facility]ATORYCLIA [id number] [address] Nucleated RBC/100 WBC (Bld) [Ratio] 0.0 /100 WBC Normal [facility] Comment on above: Order Comment: Speci men Type: BLOOD SPECIMENOrdering Facility: [facility] Address: [address] [place] [address] Performed By: #### 5 7021-8 ####[facility]ORATORYCLIA [id number] [address] [place] [facility] Platelet mean volume (Bld) [Entitic vol] 10.0 fL Normal 9.0-12.7 [facility] Comment on above: Order Comment: Speci men Type: BLOOD SPECIMENOrdering Facility: [facility] Address: [address] Performed By: #### 5 7021-8 ####[facility]ORATORYCLIA [id number] [address] Platelets (Bld) [#/Vol] 358 10*3/uL Normal 150-400 [facility] Comment on above: Order Comment: Speci men Type: BLOOD SPECIMENOrdering Facility: [facility] Address: [address] [place] [address] Performed By: #### 5 7021-8 ####[facility]ATORYCLIA [id number] [address] RBC (Bld) [#/Vol] 3.39 10*6/uL Low 4.20-6.00 [facility] Comment on above: Order Comment: Speci men Type: BLOOD SPECIMENOrdering Facility: [facility] Address: [address] [place] [address] Performed By: #### 5 7021-8 ####[facility] LABORATORYCLIA [id number] [address] OF [facility] WBC (Bld) [#/Vol] 13.17 10*3/uL High 3.70-11.00 [facility] Comment on above: Order Comment: Speci men Type: BLOOD SPECIMENOrdering Facility: [facility] Address: [address] [place] [address] Performed By: #### 5 7021-8 ####[facility]ORATORYCLIA [id number] [address] NURSING PROGon 08-02-2021 NURSING PROG Normal [facility] THERAPY NTon 08-02-2021 THERAPY NT Normal [facility] aPTT PPPon 08-02-2021 aPTT Coag (PPP) [Time] 54.9 s High 23.0-32.4 [facility] Comment on above: Order Comment: Speci men Type: BLOOD SPECIMENOrdering Facility: [facility] Address: [address] [place] [address] Performed By: #### 1 4979-9 ####[facility]ORATORYCLIA [id number] [address] [place] ALLIED HEALTHon 08-01-2021 ALLIED HEALTH Normal [facility] ALLIED HEALTH Normal [facility] Basic metabolic 2000 panelon 08-01-2021 Anion gap [Moles/Vol] 12 mmol/L Normal 9-18 [facility] Comment on above: Order Comment: Speci men Type: BLOOD SPECIMENOrdering Facility: [facility] Address: [address] [place] [address] Performed By: #### 2 4321-2, 39398-1, 92970-9, 2776- ####[facility] LABORATORYCLIA [id number] [place] [address] [place] Calcium [Mass/Vol] 9.1 mg/dL Normal 8.5-10.2 [facility] Comment on above: Order Comment: Speci men Type: BLOOD SPECIMENOrdering Facility: [facility] Address: [address] [place] [address] Performed By: #### 2 4321-2, 27722-4, 02256-5, 2776- ####[facility] LABORATORYCLIA [id number] [place] [id number] [place] Chloride [Moles/Vol] 96 mmol/L Low 97-105 [facility] Comment on above: Order Comment: Speci men Type: BLOOD SPECIMENOrdering Facility: [facility] Address: [address] [place] [address] Performed By: #### 2 4321-2, 16682-0, 58306-0, 2776- ####[facility] LABORATORYCLIA [id number] [place] [address] [place] CO2 [Moles/Vol] 27 mmol/L Normal 22-30 [facility] Comment on above: Order Comment: Speci men Type: BLOOD SPECIMENOrdering Facility: [facility] Address: [address] [place] [address] Performed By: #### 2 4321-2, 85079-9, 59316-2, 2776- ####[facility] LABORATORYCLIA [id number] [place] [id number] [place] Creatinine [Mass/Vol] 0.64 mg/dL Low 0.73-1.22 [facility] Comment on above: Order Comment: Speci men Type: BLOOD SPECIMENOrdering Facility: [facility] Address: [address] [place] [address] Performed By: #### 2 4321-2, 38341-6, 17057-5, 2776-1 ####[facility] LABORATORYCLIA [id number] [place] [address] [place] ESTIMATED GLOMERULAR FILTRATION RATE 102 mL/min/1.73m??? Normal >=60 [facility] Comment on above: Order Comment: Shira feldman Type: BLOOD SPECIMENOrdering Facility: [facility] Address: [address] [place] [address] Result Comment: Luzmaria mated Glomerular Filtration Rate [...] actual GFR. Performed By: #### 2 4321-2, 14612-0, 25910-1, 2777-1 ####[facility]ITAL[facility] [id number] [place] [id number] [place] Glucose [Mass/Vol] 122 mg/dL High 74-99 [facility] Comment on above: Order Comment: Shira feldman Type: BLOOD SPECIMENOrdering Facility: [facility] Address: [address] [place] [address] Result Comment: The [place] [employer] (ADA) provides guidance for cutoff [...] Standards of Medical Care in Diabetes 2016, [place] [employer]. Diabetes Care. 2016.39(Suppl 1). Performed By: #### 2 4321-2, 78082-5, 80202-9, 2777-1 ####[facility] CENTERIA [id number] [place] [address] [place] Potassium [Moles/Vol] 4.2 mmol/L Normal 3.7-5.1 [facility] Comment on above: Order Comment: Speci men Type: BLOOD SPECIMENOrdering Facility: [facility] Address: [address] [place] [address] Performed By: #### 2 4321-2, 77261-5, 87727-9, 2777-1 ####[facility] LABORATORYCLIA [id number] [place] [address] [place] Sodium [Moles/Vol] 135 mmol/L Low 136-144 [facility] Comment on above: Order Comment: Speci men Type: BLOOD SPECIMENOrdering Facility: [facility] Address: [address] [place] [address] Performed By: #### 2 4321-2, 24810-2, 74497-9, 2777-1 ####[facility] LABORATORYCLIA [id number] [place] [address] [place] Urea nitrogen [Mass/Vol] 36 mg/dL High 9-24 [facility] Comment on above: Order Comment: Speci men Type: BLOOD SPECIMENOrdering Facility: [facility] Address: [address] [place] [address] Performed By: #### 2 4321-2, 19441-7, 85560-2, 2777-1 ####[facility] LABORATORYCLIA [id number] [address] [place] CASE MANAGEMon 08-01-2021 CASE MANAGEM Normal [facility] CBC W Auto Differential pane l (Bld)on 08-01-2021 Basophils (Bld) [#/Vol] 0.04 10*3/uL Normal <0.11 [facility] Comment on above: Order Comment: Speci men Type: BLOOD SPECIMENOrdering Facility: [facility] Address: [address] [place] [address] Performed By: #### 5 7021-8 ####[facility] LABORATORYCLIA [id number] [place] [address] [place] Basophils/100 WBC (Bld) 0.3 % Normal [facility] Comment on above: Order Comment: Speci men Type: BLOOD SPECIMENOrdering Facility: [facility] Address: [address] [place] [address] Performed By: #### 5 7021-8 ####[facility] LABORATORYCLIA [id number] [address] OF [facility] Differential cell count method Nom (Bld) Auto Normal [facility] Comment on above: Order Comment: Speci men Type: BLOOD SPECIMENOrdering Facility: [facility] Address: [address] [place] [address] Performed By: #### 5 7021-8 ####[facility] LABORATORYCLIA [id number] [address] [place] Eosinophils (Bld) [#/Vol] 0.37 10*3/uL Normal <0.46 [facility] Comment on above: Order Comment: Speci men Type: BLOOD SPECIMENOrdering Facility: [facility] Address: [address] [place] [address] Performed By: #### 5 7021-8 ####[facility] LABORATORYCLIA [id number] [address] Eosinophils/100 WBC (Bld) 3.1 % Normal [facility] Comment on above: Order Comment: Speci men Type: BLOOD SPECIMENOrdering Facility: [facility] Address: [address] [place] [address] Performed By: #### 5 7021-8 ####[facility] LABORATORYCLIA [id number] [address] [place] Erythrocyte distribution width (RBC) [Ratio] 17.5 % High 11.5-15.0 [facility] Comment on above: Order Comment: Speci men Type: BLOOD SPECIMENOrdering Facility: [facility] Address: [address] [place] [address] Performed By: #### 5 7021-8 ####[facility]ORATORYCLIA [id number] [address] OF [facility] Hematocrit (Bld) [Volume fraction] 30.1 % Low 39.0-51.0 [facility] Comment on above: Order Comment: Speci men Type: BLOOD SPECIMENOrdering Facility: [facility] Address: [address] [place] [address] Performed By: #### 5 7021-8 ####[facility] LABORATORYCLIA [id number] [address] [place] Hemoglobin (Bld) [Mass/Vol] 9.1 g/dL Low 13.0-17.0 [facility] Comment on above: Order Comment: Speci men Type: BLOOD SPECIMENOrdering Facility: [facility] Address: [address] [place] [address] Performed By: #### 5 7021-8 ####[facility] LABORATORYCLIA [id number] [address] IMMATURE GRAN % 0.6 % Normal [facility] Comment on above: Order Comment: Speci men Type: BLOOD SPECIMENOrdering Facility: [facility] Address: [address] [place] [address] Performed By: #### 5 7021-8 ####[facility] LABORATORYCLIA [id number] [address] IMMATURE GRAN ABS 0.07 k/uL Normal <0.10 [facility] Comment on above: Order Comment: Speci men Type: BLOOD SPECIMENOrdering Facility: [facility] Address: [address] [place] [address] Performed By: #### 5 7021-8 ####[facility] LABORATORYCLIA [id number] [address] [place] Lymphocytes (Bld) [#/Vol] 2.05 10*3/uL Normal 1.00-4.00 [facility] Comment on above: Order Comment: Speci men Type: BLOOD SPECIMENOrdering Facility: [facility] Address: [address] [place] [address] Performed By: #### 5 7021-8 ####[facility] LABORATORYCLIA [id number] [address] Lymphocytes/100 WBC (Bld) 17.1 % Normal [facility] Comment on above: Order Comment: Speci men Type: BLOOD SPECIMENOrdering Facility: [facility] Address: [address] [place] [address] Performed By: #### 5 7021-8 ####[facility] LABORATORYCLIA [id number] [address] MCH (RBC) [Entitic mass] 27.7 pg Normal 26.0-34.0 [facility] Comment on above: Order Comment: Speci men Type: BLOOD SPECIMENOrdering Facility: [facility] Address: [address] [place] [address] Performed By: #### 5 7021-8 ####[facility] LABORATORYCLIA [id number] [address] MCHC (RBC) [Mass/Vol] 30.2 g/dL Low 30.5-36.0 [facility] Comment on above: Order Comment: Speci men Type: BLOOD SPECIMENOrdering Facility: [facility] Address: [address] [place] [address] Performed By: #### 5 7021-8 ####[facility] LABORATORYCLIA [id number] [address] MCV (RBC) [Entitic vol] 91.5 fL Normal 80.0-100.0 [facility] Comment on above: Order Comment: Speci men Type: BLOOD SPECIMENOrdering Facility: [facility] Address: [address] [place] [address] Performed By: #### 5 7021-8 ####[facility] LABORATORYCLIA [id number] [address] Monocytes (Bld) [#/Vol] 0.53 10*3/uL Normal <0.87 [facility] Comment on above: Order Comment: Speci men Type: BLOOD SPECIMENOrdering Facility: [facility] Address: [address] [place] [address] Performed By: #### 5 7021-8 ####[facility] LABORATORYCLIA [id number] [address] [place] Monocytes/100 WBC (Bld) 4.4 % Normal [facility] Comment on above: Order Comment: Speci men Type: BLOOD SPECIMENOrdering Facility: [facility] Address: [address] [place] [address] Performed By: #### 5 7021-8 ####[facility] LABORATORYCLIA [id number] [place] [address] [place] Neutrophils (Bld) [#/Vol] 8.91 10*3/uL High 1.45-7.50 [facility] Comment on above: Order Comment: Speci men Type: BLOOD SPECIMENOrdering Facility: [facility] Address: [address] [place] [address] Performed By: #### 5 7021-8 ####[facility] LABORATORYCLIA [id number] [address] [place] Neutrophils/100 WBC (Bld) 74.5 % Normal [facility] Comment on above: Order Comment: Speci men Type: BLOOD SPECIMENOrdering Facility: [facility] Address: [address] [place] [address] Performed By: #### 5 7021-8 ####[facility] LABORATORYCLIA [id number] [place] [address] [place] Nucleated RBC (Bld) [#/Vol] 10*3/uL Normal <0.01 [facility] Comment on above: Order Comment: Speci men Type: BLOOD SPECIMENOrdering Facility: [facility] Address: [address] [place] [address] Performed By: #### 5 7021-8 ####[facility] LABORATORYCLIA [id number] [place] [address] [place] Nucleated RBC/100 WBC (Bld) [Ratio] 0.0 /100 WBC Normal [facility] Comment on above: Order Comment: Speci men Type: BLOOD SPECIMENOrdering Facility: [facility] Address: [address] [place] [address] Performed By: #### 5 7021-8 ####[facility] LABORATORYCLIA [id number] [place] [address] [place] Platelet mean volume (Bld) [Entitic vol] 10.4 fL Normal 9.0-12.7 [facility] Comment on above: Order Comment: Speci men Type: BLOOD SPECIMENOrdering Facility: [facility] Address: [address] [place] [address] Performed By: #### 5 7021-8 ####[facility] LABORATORYCLIA [id number] [address] [place] Platelets (Bld) [#/Vol] 319 10*3/uL Normal 150-400 [facility] Comment on above: Order Comment: Speci men Type: BLOOD SPECIMENOrdering Facility: [facility] Address: [address] [place] [address] Performed By: #### 5 7021-8 ####[facility] LABORATORYCLIA [id number] [address] [place] RBC (Bld) [#/Vol] 3.29 10*6/uL Low 4.20-6.00 [facility] Comment on above: Order Comment: Speci men Type: BLOOD SPECIMENOrdering Facility: [facility] Address: [address] [place] [address] Performed By: #### 5 7021-8 ####[facility] LABORATORYCLIA [id number] [address] [place] WBC (Bld) [#/Vol] 11.97 10*3/uL High 3.70-11.00 [facility] Comment on above: Order Comment: Speci men Type: BLOOD SPECIMENOrdering Facility: [facility] Address: [address] [address] Performed By: #### 5 7021-8 ####[facility] LABORATORYCLIA [id number] [address] [place] CT BRAIN WO IVCONon 08-02-19 CT BRAIN WO IVCON Normal [facility] Magnesium SerPl-mCncon 08-01 Magnesium [Mass/Vol] 2.4 mg/dL High 1.7-2.3 [facility] Comment on above: Order Comment: Speci men Type: BLOOD SPECIMENOrdering Facility: [facility] Address: [address] [place] [address] Performed By: #### 2 4321-2, 00075-1, 82301-0, 2777-1 ####[facility] LABORATORYCLIA [id number] [address] [place] NURSING PROGon 08-01-2021 NURSING PROG Normal [facility] NUTRITIONon 08-01-2021 NUTRITION Normal [facility] Phosphate SerPl-mCncon 08-01 Phosphate [Mass/Vol] 3.3 mg/dL Normal 2.7-4.8 [facility] Comment on above: Order Comment: Speci men Type: BLOOD SPECIMENOrdering Facility: [facility] Address: [address] [address] Performed By: #### 2 4321-2, 25876-6, 76295-0, 2777-1 ####[facility]ATORYCLIA [id number] [address] [place] Prealbumin [Mass/Vol]on 07-06 Prealbumin Nephelometry [Mass/Vol] 30 mg/dL Normal 17- [facility] Comment on above: Order Comment: Speci men Type: BLOOD SPECIMENOrdering Facility: [facility] Address: [address] [address] Performed By: #### 2 4321-2, 67290-7, 96936-1, 2777-1 ####[facility]ORATORYCLIA [id number] [place] [address] [place] THERAPY NTon 08-01-2021 THERAPY NT Normal [facility] THERAPY NT Normal [facility] TYPE AND SCREENon 08-01-2021 ABO O Normal [facility] Comment on above: Order Comment: Speci men Type: BLOOD SPECIMENOrdering Facility: [facility] Address: [address] [place] [address] Performed By: #### T SCR ####[facility] BLOOD BANKCLIA [id number] [address] OF [facility] HISTORICAL AB SCR STATUS Negative Normal [facility] Comment on above: Order Comment: Speci men Type: BLOOD SPECIMENOrdering Facility: [facility] Address: [address] [place] [address] Performed By: #### T SCR ####[facility] BLOOD BANKCLIA [id number] [address] [place] Rh Nom (Bld) Positive [facility] Comment on above: Order Comment: Speci men Type: BLOOD SPECIMENOrdering Facility: [facility] Address: [address] [place] [address] Performed By: #### T SCR ####[facility] BLOOD BANKCLIA [id number] [address] OF [facility] TYPE AND SCREEN EXPIRATION 08/04/2021 23:59 Normal [facility] Comment on above: Order Comment: Speci men Type: BLOOD SPECIMENOrdering Facility: [facility] Address: [address] [place] [address] Performed By: #### T SCR ####[facility] BLOOD BANKCLIA [id number] [address] [place] XR CHEST 1V FRONTALon 2021 XR CHEST 1V FRONTAL Normal [facility] aPTT PPPon 08-01-2021 aPTT Coag (PPP) [Time] 50.9 s High 23.0-32.4 [facility] Comment on above: Order Comment: Speci men Type: BLOOD SPECIMENOrdering Facility: [facility] Address: [address] [place] [address] Performed By: #### 1 4979-9 ####[facility] LABORATORYCLIA [id number] [address] STATES [facility] CBC W Auto Differential pane l (Bld)on 07-31-2021 Basophils (Bld) [#/Vol] 0.05 10*3/uL Normal <0.11 [facility] Comment on above: Order Comment: Speci men Type: BLOOD SPECIMENOrdering Facility: [facility] Address: [address] [place] [address] Performed By: #### 5 7021-8 ####[facility] LABORATORYCLIA [id number] [address] Basophils/100 WBC (Bld) 0.4 % Normal [facility] Comment on above: Order Comment: Speci men Type: BLOOD SPECIMENOrdering Facility: [facility] Address: [address] [place] [address] Performed By: #### 5 7021-8 ####[facility] LABORATORYCLIA [id number] [address] Differential cell count method Nom (Bld) Auto Normal [facility] Comment on above: Order Comment: Speci men Type: BLOOD SPECIMENOrdering Facility: [facility] Address: [address] [place] [address] Performed By: #### 5 7021-8 ####[facility] LABORATORYCLIA [id number] [address] [place] Eosinophils (Bld) [#/Vol] 0.51 10*3/uL High <0.46 [facility] Comment on above: Order Comment: Speci men Type: BLOOD SPECIMENOrdering Facility: [facility] Address: [address] [place] [address] Performed By: #### 5 7021-8 ####[facility] LABORATORYCLIA [id number] [place] [address] Eosinophils/100 WBC (Bld) 4.5 % Normal [facility] Comment on above: Order Comment: Speci men Type: BLOOD SPECIMENOrdering Facility: [facility] Address: [address] [place] [address] Performed By: #### 5 7021-8 ####[facility] LABORATORYCLIA [id number] [address] Erythrocyte distribution width (RBC) [Ratio] 17.5 % High 11.5-15.0 [facility] Comment on above: Order Comment: Speci men Type: BLOOD SPECIMENOrdering Facility: [facility] Address: [address] [place] [address] Performed By: #### 5 7021-8 ####[facility] LABORATORYCLIA [id number] [address] Hematocrit (Bld) [Volume fraction] 30.4 % Low 39.0-51.0 [facility] Comment on above: Order Comment: Speci men Type: BLOOD SPECIMENOrdering Facility: [facility] Address: [address] [place] [address] Performed By: #### 5 7021-8 ####[facility] LABORATORYCLIA [id number] [address] Hemoglobin (Bld) [Mass/Vol] 9.2 g/dL Low 13.0-17.0 [facility] Comment on above: Order Comment: Speci men Type: BLOOD SPECIMENOrdering Facility: [facility] Address: [address] [place] [address] Performed By: #### 5 7021-8 ####[facility] LABORATORYCLIA [id number] [address] IMMATURE GRAN % 0.5 % Normal [facility] Comment on above: Order Comment: Speci men Type: BLOOD SPECIMENOrdering Facility: [facility] Address: [address] [place] [address] Performed By: #### 5 7021-8 ####[facility] LABORATORYCLIA [id number] [address] IMMATURE GRAN ABS 0.06 k/uL Normal <0.10 [facility] Comment on above: Order Comment: Speci men Type: BLOOD SPECIMENOrdering Facility: [facility] Address: [address] [place] [address] Performed By: #### 5 7021-8 ####[facility] LABORATORYCLIA [id number] [address] Lymphocytes (Bld) [#/Vol] 1.99 10*3/uL Normal 1.00-4.00 [facility] Comment on above: Order Comment: Speci men Type: BLOOD SPECIMENOrdering Facility: [facility] Address: [address] [place] [address] Performed By: #### 5 7021-8 ####[facility] LABORATORYCLIA [id number] [address] Lymphocytes/100 WBC (Bld) 17.6 % Normal [facility] Comment on above: Order Comment: Speci men Type: BLOOD SPECIMENOrdering Facility: [facility] Address: [address] [place] [address] Performed By: #### 5 7021-8 ####[facility] LABORATORYCLIA [id number] [address] MCH (RBC) [Entitic mass] 28.4 pg Normal 26.0-34.0 [facility] Comment on above: Order Comment: Speci men Type: BLOOD SPECIMENOrdering Facility: [facility] Address: [address] [place] [address] Performed By: #### 5 7021-8 ####[facility] LABORATORYCLIA [id number] [address] MCHC (RBC) [Mass/Vol] 30.3 g/dL Low 30.5-36.0 [facility] Comment on above: Order Comment: Speci men Type: BLOOD SPECIMENOrdering Facility: [facility] Address: [address] [place] [address] Performed By: #### 5 7021-8 ####[facility]ATORYCLIA [id number] [address] STATES OF [facility] MCV (RBC) [Entitic vol] 93.8 fL Normal 80.0-100.0 [facility] Comment on above: Order Comment: Speci men Type: BLOOD SPECIMENOrdering Facility: [facility] Address: [address] [place] [address] Performed By: #### 5 7021-8 ####[facility] LABORATORYCLIA [id number] [address] [place] Monocytes (Bld) [#/Vol] 0.57 10*3/uL Normal <0.87 [facility] Comment on above: Order Comment: Speci men Type: BLOOD SPECIMENOrdering Facility: [facility] Address: [address] [place] [address] Performed By: #### 5 7021-8 ####[facility] LABORATORYCLIA [id number] [address] Monocytes/100 WBC (Bld) 5.0 % Normal [facility] Comment on above: Order Comment: Speci men Type: BLOOD SPECIMENOrdering Facility: [facility] Address: [address] [place] [address] Performed By: #### 5 7021-8 ####[facility] LABORATORYCLIA [id number] [address] [place] Neutrophils (Bld) [#/Vol] 8.12 10*3/uL High 1.45-7.50 [facility] Comment on above: Order Comment: Speci men Type: BLOOD SPECIMENOrdering Facility: [facility] Address: [address] [place] [address] Performed By: #### 5 7021-8 ####[facility] LABORATORYCLIA [id number] [address] [place] Neutrophils/100 WBC (Bld) 72.0 % Normal [facility] Comment on above: Order Comment: Speci men Type: BLOOD SPECIMENOrdering Facility: [facility] Address: [facility] [address] Performed By: #### 5 7021-8 ####[facility] LABORATORYCLIA [id number] [address] [place] Nucleated RBC (Bld) [#/Vol] 10*3/uL Normal <0.01 [facility] Comment on above: Order Comment: Speci men Type: BLOOD SPECIMENOrdering Facility: [facility] Address: [address] [place], [place] [address] Performed By: #### 5 7021-8 ####[facility] LABORATORYCLIA [id number] [address] [place] Nucleated RBC/100 WBC (Bld) [Ratio] 0.0 /100 WBC Normal [facility] Comment on above: Order Comment: Speci men Type: BLOOD SPECIMENOrdering Facility: [facility] Address: [address] [place], [place] [address] Performed By: #### 5 7021-8 ####[facility] LABORATORYCLIA [id number] [address] [place] Platelet mean volume (Bld) [Entitic vol] 10.9 fL Normal 9.0-12.7 [facility] Comment on above: Order Comment: Speci men Type: BLOOD SPECIMENOrdering Facility: [facility] Address: [address] Performed By: #### 5 7021-8 ####[facility] LABORATORYCLIA [id number] [place] [address] [place] Platelets (Bld) [#/Vol] 303 10*3/uL Normal 150-400 [facility] Comment on above: Order Comment: Speci men Type: BLOOD SPECIMENOrdering Facility: [facility] Address: [address] Performed By: #### 5 7021-8 ####[facility] LABORATORYCLIA [id number] [place] [address] [place] RBC (Bld) [#/Vol] 3.24 10*6/uL Low 4.20-6.00 [facility] Comment on above: Order Comment: Speci men Type: BLOOD SPECIMENOrdering Facility: [facility] Address: [address] [place] [address] Performed By: #### 5 7021-8 ####[facility] LABORATORYCLIA [id number] [address] OF [facility] WBC (Bld) [#/Vol] 11.30 10*3/uL High 3.70-11.00 [facility] Comment on above: Order Comment: Speci men Type: BLOOD SPECIMENOrdering Facility: [facility] Address: [address] [place] [address] Performed By: #### 5 7021-8 ####[facility] LABORATORYCLIA [id number] [address] NURSING PROGon 07-31-2021 NURSING PROG [facility] aPTT PPPon 07-31-2021 aPTT Coag (PPP) [Time] 64.9 s High 23.0-32.4 [facility] Comment on above: Order Comment: Speci men Type: BLOOD SPECIMENOrdering Facility: [facility] Address: [address] [place] [address] Performed By: #### 1 4979-9 ####[facility] LABORATORYCLIA [id number] [address] [place] ALLIED HEALTHon 07-30-2021 ALLIED HEALTH Normal [facility] Bacteria CSF Culton 07-31-19 22 Bacteria identified Cx Nom (CSF) CULTURE, CSF: No growth 14 days GRAM STAIN: No organisms seen Few Mononuclear cells Rare Polymorphonuclear leukocytes Gram stain performed on cytospun specimen. Normal [facility] Comment on above: Performed By: #### 6 06-4 ####[facility] LABORATORYCLIA [id number] [address] Basic metabolic 2000 panelon 07-30-2021 Anion gap [Moles/Vol] 9 mmol/L Normal 9-18 [facility] Comment on above: Order Comment: Speci men Type: BLOOD SPECIMENOrdering Facility: [facility] Address: [address] [place] [address] Performed By: #### 2 777-1, 51981-7, ####[facility]ORATORYCLIA [id number] [place] [address] [place] Calcium [Mass/Vol] 8.9 mg/dL Normal 8.5-10.2 [facility] Comment on above: Order Comment: Speci men Type: BLOOD SPECIMENOrdering Facility: [facility] Address: [address] [place] [address] Performed By: #### 2 777-1, 83864-0, ####[facility] LABORATORYCLIA [id number] [place] [address] [place] Chloride [Moles/Vol] 95 mmol/L Low 97-105 [facility] Comment on above: Order Comment: Speci men Type: BLOOD SPECIMENOrdering Facility: [facility] [facility] Address: [address] [place] [address] Performed By: #### 2 777-1, 64714-3, ####[facility] LABORATORYCLIA [id number] [place] [address] [place] CO2 [Moles/Vol] 28 mmol/L Normal 22-30 [facility] Comment on above: Order Comment: Speci men Type: BLOOD SPECIMENOrdering Facility: [facility] Address: [address] [place] [address] Performed By: #### 2 777-1, 57496-0, ####[facility]ATORYCLIA [id number] [place] [address] [place] Creatinine [Mass/Vol] 0.67 mg/dL Low 0.73-1.22 [facility] Comment on above: Order Comment: Shira feldman Type: BLOOD SPECIMENOrdering Facility: [facility] Address: [address] [phone] Performed By: #### 2 777-1, 24764-6, ####[facility]ORATORYCLIA [id number] [place] [address] [place] ESTIMATED GLOMERULAR FILTRATION RATE 101 mL/min/1.73m??? Normal >=60 [facility] Comment on above: Order Comment: Johncara feldman Type: BLOOD SPECIMENOrdering Facility: [facility] Address: [address] [place], [place] [phone] Result Comment: Luzmaria mated Glomerular Filtration Rate [...] actual GFR. Performed By: #### 2 777-1, 74798-6, ####[facility]ORATORYCLIA [id number] [place] [address] [place] Glucose [Mass/Vol] 125 mg/dL High 74-99 [facility] Comment on above: Order Comment: Shira feldman Type: BLOOD SPECIMENOrdering Facility: [facility] Address: [address] [place] [address] Result Comment: The [place] Diabetes Association (ADA) provides guidance for cutoff [...] Standards of Medical Care in Diabetes 2016, [place] [employer]. Diabetes Care. 2016.39(Suppl 1). Performed By: #### 2 777-1, 35183-1, ####[facility]ORATORYCLIA [id number] [address] STATES OF [facility] Potassium [Moles/Vol] 3.9 mmol/L Normal 3.7-5.1 [facility] Comment on above: Order Comment: Speci men Type: BLOOD SPECIMENOrdering Facility: [facility] Address: [address] [place] [address] Performed By: #### 2 777-1, 73624-9, ####[facility] LABORATORYCLIA [id number] [address] STATES OF [facility] Sodium [Moles/Vol] 132 mmol/L Low 136-144 [facility] Comment on above: Order Comment: Speci men Type: BLOOD SPECIMENOrdering Facility: [facility] Address: [address] [place] [address] Performed By: #### 2 777-1, 27003-3, ####[facility] LABORATORYCLIA [id number] [address] STATES [facility] Urea nitrogen [Mass/Vol] 38 mg/dL High 9-24 [facility] Comment on above: Order Comment: Speci men Type: BLOOD SPECIMENOrdering Facility: [facility] Address: [address] [place] [address] Performed By: #### 2 777-1, 43723-4, ####[facility]ORATORYCLIA [id number] [address] [place] CBC W Auto Differential pane l (Bld)on 07-30-2021 Basophils (Bld) [#/Vol] 0.04 10*3/uL Normal <0.11 [facility] Comment on above: Order Comment: Speci men Type: BLOOD SPECIMENOrdering Facility: [facility] Address: [address] [place] [address] Performed By: #### 5 7021-8 ####[facility]ORATORYCLIA [id number] [address] [place] Basophils/100 WBC (Bld) 0.4 % Normal [facility] Comment on above: Order Comment: Speci men Type: BLOOD SPECIMENOrdering Facility: [facility] Address: [address] [place] [address] Performed By: #### 5 7021-8 ####[facility]ATORYCLIA [id number] [address] Differential cell count method Nom (Bld) Auto Normal [facility] Comment on above: Order Comment: Speci men Type: BLOOD SPECIMENOrdering Facility: [facility] Address: [address] [place] [address] Performed By: #### 5 7021-8 ####[facility]ORATORYCLIA [id number] [address] [place] Eosinophils (Bld) [#/Vol] 0.30 10*3/uL Normal <0.46 [facility] Comment on above: Order Comment: Speci men Type: BLOOD SPECIMENOrdering Facility: [facility] Address: [address] [place] [address] Performed By: #### 5 7021-8 ####[facility]ATORYCLIA [id number] [address] [place] Eosinophils/100 WBC (Bld) 2.7 % Normal [facility] Comment on above: Order Comment: Speci men Type: BLOOD SPECIMENOrdering Facility: [facility] Address: [address] [place] [address] Performed By: #### 5 7021-8 ####[facility]ORATORYCLIA [id number] [address] Erythrocyte distribution width (RBC) [Ratio] 17.2 % High 11.5-15.0 [facility] Comment on above: Order Comment: Speci men Type: BLOOD SPECIMENOrdering Facility: [facility] Address: [address] [place] [address] Performed By: #### 5 7021-8 ####[facility]ORATORYCLIA [id number] [address] Hematocrit (Bld) [Volume fraction] 30.8 % Low 39.0-51.0 [facility] Comment on above: Order Comment: Speci men Type: BLOOD SPECIMENOrdering Facility: [facility] Address: [address] [place] [address] Performed By: #### 5 7021-8 ####[facility]ORATORYCLIA [id number] [address] Hemoglobin (Bld) [Mass/Vol] 9.4 g/dL Low 13.0-17.0 [facility] Comment on above: Order Comment: Speci men Type: BLOOD SPECIMENOrdering Facility: [facility] Address: [address] [place] [address] Performed By: #### 5 7021-8 ####[facility]ORATORYCLIA [id number] [address] IMMATURE GRAN % 0.5 % Normal [facility] Comment on above: Order Comment: Speci men Type: BLOOD SPECIMENOrdering Facility: [facility] Address: [address] [place] [address] Performed By: #### 5 7021-8 ####[facility]ORATORYCLIA [id number] [address] IMMATURE GRAN ABS 0.06 k/uL Normal <0.10 [facility] Comment on above: Order Comment: Speci men Type: BLOOD SPECIMENOrdering Facility: [facility] Address: [address] [place] [address] Performed By: #### 5 7021-8 ####[facility]ORATORYCLIA [id number] [address] Lymphocytes (Bld) [#/Vol] 1.68 10*3/uL Normal 1.00-4.00 [facility] Comment on above: Order Comment: Speci men Type: BLOOD SPECIMENOrdering Facility: [facility] Address: [address] [place] [address] Performed By: #### 5 7021-8 ####[facility]ATORYCLIA [id number] [address] Lymphocytes/100 WBC (Bld) 15.3 % Normal [facility] Comment on above: Order Comment: Speci men Type: BLOOD SPECIMENOrdering Facility: [facility] Address: [address] [place] [address] Performed By: #### 5 7021-8 ####[facility]ORATORYCLIA [id number] [address] MCH (RBC) [Entitic mass] 28.0 pg Normal 26.0-34.0 [facility] Comment on above: Order Comment: Speci men Type: BLOOD SPECIMENOrdering Facility: [facility] Address: [address] [place] [address] Performed By: #### 5 7021-8 ####[facility]ORATORYCLIA [id number] [address] [place] [facility] MCHC (RBC) [Mass/Vol] 30.5 g/dL Normal 30.5-36.0 [facility] Comment on above: Order Comment: Speci men Type: BLOOD SPECIMENOrdering Facility: [facility] Address: [address] [place] [address] Performed By: #### 5 7021-8 ####[facility]ORATORYCLIA [id number] [address] [place] [facility] MCV (RBC) [Entitic vol] 91.7 fL Normal 80.0-100.0 [facility] Comment on above: Order Comment: Speci men Type: BLOOD SPECIMENOrdering Facility: [facility] Address: [address] [place] [address] Performed By: #### 5 7021-8 ####[facility]ORATORYCLIA [id number] [place] [address] [place] Monocytes (Bld) [#/Vol] 0.53 10*3/uL Normal <0.87 [facility] Comment on above: Order Comment: Speci men Type: BLOOD SPECIMENOrdering Facility: [facility] Address: [address] [place] [address] Performed By: #### 5 7021-8 ####[facility]ORATORYCLIA [id number] [address] [place] Monocytes/100 WBC (Bld) 4.8 % Normal [facility] Comment on above: Order Comment: Speci men Type: BLOOD SPECIMENOrdering Facility: [facility] Address: [address] [place] [address] Performed By: #### 5 7021-8 ####[facility]ORATORYCLIA [id number] [address] [place] Neutrophils (Bld) [#/Vol] 8.39 10*3/uL High 1.45-7.50 [facility] Comment on above: Order Comment: Speci men Type: BLOOD SPECIMENOrdering Facility: [facility] Address: [address] [place] [address] Performed By: #### 5 7021-8 ####[facility]ATORYCLIA [id number] [address] Neutrophils/100 WBC (Bld) 76.3 % Normal [facility] Comment on above: Order Comment: Speci men Type: BLOOD SPECIMENOrdering Facility: [facility] Address: [address] [place] [address] Performed By: #### 5 7021-8 ####[facility]ORATORYCLIA [id number] [place] [address] [place] Nucleated RBC (Bld) [#/Vol] 10*3/uL Normal <0.01 [facility] Comment on above: Order Comment: Speci men Type: BLOOD SPECIMENOrdering Facility: [facility] Address: [address] [place] [address] Performed By: #### 5 7021-8 ####[facility]ORATORYCLIA [id number] [address] [place] Nucleated RBC/100 WBC (Bld) [Ratio] 0.0 /100 WBC Normal [facility] Comment on above: Order Comment: Speci men Type: BLOOD SPECIMENOrdering Facility: [facility] Address: [address] [place] [address] Performed By: #### 5 7021-8 ####[facility]ORATORYCLIA [id number] [address] [place] Platelet mean volume (Bld) [Entitic vol] 10.9 fL Normal 9.0-12.7 [facility] Comment on above: Order Comment: Speci men Type: BLOOD SPECIMENOrdering Facility: [facility] Address: [address] [place] [address] Performed By: #### 5 7021-8 ####[facility]ORATORYCLIA [id number] [address] OF [facility] Platelets (Bld) [#/Vol] 287 10*3/uL Normal 150-400 [facility] Comment on above: Order Comment: Speci men Type: BLOOD SPECIMENOrdering Facility: [facility] Address: [address] [place] [address] Performed By: #### 5 7021-8 ####[facility]ATORYCLIA [id number] [address] [place] RBC (Bld) [#/Vol] 3.36 10*6/uL Low 4.20-6.00 [facility] Comment on above: Order Comment: Speci men Type: BLOOD SPECIMENOrdering Facility: [facility] Address: [address] [place] [address] Performed By: #### 5 7021-8 ####[facility]ORATORYCLIA [id number] [address] [place] WBC (Bld) [#/Vol] 11.00 10*3/uL Normal 3.70-11.00 [facility] Comment on above: Order Comment: Speci men Type: BLOOD SPECIMENOrdering Facility: [facility] Address: [address] [place] [address] Performed By: #### 5 7021-8 ####[facility]ORATORYCLIA [id number] [address] STATES OF [facility] CSF MANUAL DIFFon 07-30-2021 DIF TTL, CSF 100 cells counted Normal [facility] Comment on above: Order Comment: Speci men Type: CEREBROSPINAL FLUIDOrdering Facility: [facility] Address: [address] [place] [address] Performed By: #### L [id number], [id number], 79130-0 ####[facility]ORATORYCLIA [id number] [address] [place] EOSIN%, CSF 0 % Normal [facility] Comment on above: Order Comment: Speci men Type: CEREBROSPINAL FLUIDOrdering Facility: [facility] Address: [address] [place] [address] Performed By: #### L [id number], CMV3859, 67757-8 ####[facility]ORATORYCLIA [id number] [address] [place] LYMPH%, CSF 75 % Normal 50-90 [facility] Comment on above: Order Comment: Speci men Type: CEREBROSPINAL FLUIDOrdering Facility: [facility] Address: [address] [place] [address] Performed By: #### L [id number], DFL8653, 16662-1 ####[facility]ORYCLIA [id number] [address] [place] MACRO%, CSF 9 % High <1 [facility] Comment on above: Order Comment: Speci men Type: CEREBROSPINAL FLUIDOrdering Facility: [facility] Address: [address] [place] [address] Performed By: #### L [id number], DXN1562, 95386-7 ####[facility]ORYCLIA [id number] [address] [place] MONO%, CSF 10 % Normal 10-50 [facility] Comment on above: Order Comment: Speci men Type: CEREBROSPINAL FLUIDOrdering Facility: [facility] Address: [address] [place] [address] Performed By: #### L [id number], HYF7047, 94992-1 ####[facility]ORYCLIA [id number] [address] OF [facility] OTHER CL%, CSF 4 % Normal [facility] Comment on above: Order Comment: Speci men Type: CEREBROSPINAL FLUIDOrdering Facility: [facility] Address: [address] [place] [address] Result Comment: Path review to follow. Performed By: #### L [id number], ZAS1978, 46166-0 ####[facility]ATORYCLIA [id number] [address] REAC LYMPH %, CSF 2 % Normal [facility] Comment on above: Order Comment: Speci men Type: CEREBROSPINAL FLUIDOrdering Facility: [facility] Address: [address] [place] [address] Performed By: #### L [id number], ESV6128, 15555-8 ####[facility]ORYCLIA [id number] [address] OF [place] CSF PATHOLOGIST INTERP (LAB REFLEX ORDER-NO BILL)on 07-30-2021 CSF STAFF REVIEW Negative Normal [facility] Comment on above: Order Comment: Speci men Type: CEREBROSPINAL FLUIDOrdering Facility: [facility] Address: [address] [place] [address] Performed By: #### L [id number], AUT1519, 19990-4 ####[facility]ORATORYCLIA [id number] [address] Pathologist name Reviewed by Eloise rebolledo MD [facility] Comment on above: Order Comment: Speci men Type: CEREBROSPINAL FLUIDOrdering Facility: [facility] Address: [address] [place] [address] Performed By: #### L [id number], ZDU7459, 39541-1 ####[facility]ORYCLIA [id number] [address] BRAIN WO IVCONon 07-31-19 CT BRAIN WO IVCON Normal [facility] Cell count panel (CSF)on Clarity (CSF) Clear Normal Clear [facility] Comment on above: Order Comment: Speci men Type: CEREBROSPINAL FLUIDOrdering Facility: [facility] Address: [address] [place] [address] Performed By: #### L [id number], ZPD1212, 81137-2 ####[facility]ORYCLIA [id number] [address] Clarity (Unsp spec) Clear Normal Clear [facility] Comment on above: Order Comment: Speci men Type: CEREBROSPINAL FLUIDOrdering Facility: [facility] Address: [address] [place] [address] Performed By: #### L [id number], WVU3384, 95968-5 ####[facility]ATORYCLIA [id number] [address] Color (CSF) Colorless Normal Colorless [facility] Comment on above: Order Comment: Speci men Type: CEREBROSPINAL FLUIDOrdering Facility: [facility] Address: [address] [place] [address] Performed By: #### L [id number], RHE1420, 51346-1 ####[facility]ORYCLIA [id number] [address] Color (Spun CSF) Colorless Normal Colorless [facility] Comment on above: Order Comment: Speci men Type: CEREBROSPINAL FLUIDOrdering Facility: [facility] Address: [address] [place] [address] Performed By: #### L [id number], MYV0231, 24714-8 ####[facility]ATORYCLIA [id number] [place] [address] [place] CSF TUBE NUMBER [employer] Normal [facility] Comment on above: Order Comment: Speci men Type: CEREBROSPINAL FLUIDOrdering Facility: [facility] Address: [address] [place] [address] Performed By: #### L [id number], BEX6258, 13901-2 ####[facility]ORATORYCLIA [id number] [address] RBC Manual cnt (CSF) [#/Vol] 9 cells/uL High 0-5 [facility] Comment on above: Order Comment: Speci men Type: CEREBROSPINAL FLUIDOrdering Facility: [facility] Address: [address] [place] [address] Performed By: #### L PZ9511, WRF8517, 81178-4 ####[facility]ATORYCLIA [id number] [address] WBC Manual cnt (CSF) [#/Vol] 8 cells/uL High 0-5 [facility] Comment on above: Order Comment: Speci men Type: CEREBROSPINAL FLUIDOrdering Facility: [facility] Address: [address] [place] [address] Performed By: #### L [id number], HHZ8814, 91887-3 ####[facility]ORATORYCLIA [id number] [address] [place] Glucose CSF-mCncon 2 Glucose (CSF) [Mass/Vol] 65 mg/dL Normal 40-70 [facility] Comment on above: Order Comment: Speci men Type: CEREBROSPINAL FLUIDOrdering Facility: [facility] Address: [address] [place] [address] Result Comment: Lumb ar CSF glucose values of healthy patients are approximately 60% of the plasma values and must always be compared with a concurrently measured plasma value for adequate clinical interpretation.References: 1. Glucose HK (GLUC3) [package insert V 12.0 Armenian]. [employer], [place], [place]. September 2015. 2. Teresa H., Loki, H. (2015). Chapter 7: Glucose and Lactate. F. Deisenhammer et al.(eds.), Cerebrospinal Fluid in Clinical Neurology. Miner: [employer]. Performed By: #### 2 342-4, 2880-3 ####[facility]ORATORYCLIA [id number] [address] Magnesium SerPl-mCncon 07-30 Magnesium [Mass/Vol] 2.5 mg/dL High 1.7-2.3 [facility] Comment on above: Order Comment: Speci men Type: BLOOD SPECIMENOrdering Facility: [facility] Address: [address] [place] [address] Performed By: #### 2 777-1, 29485-8, ####[facility]ORATORYCLIA [id number] [address] NURSING PROGon 07-30-2021 NURSING PROG Normal [facility] Phosphate SerPl-mCncon 07-30 Phosphate [Mass/Vol] 2.4 mg/dL Low 2.7-4.8 [facility] Comment on above: Order Comment: Speci men Type: BLOOD SPECIMENOrdering Facility: [facility] Address: [address] [place] [address] Performed By: #### 2 777-1, 63661-2, ####[facility]ORATORYCLIA [id number] [address] STATES [facility] Prot CSF-mCncon 07-30-2021 Protein (CSF) [Mass/Vol] 50 mg/dL High 15-45 [facility] Comment on above: Order Comment: Speci men Type: CEREBROSPINAL FLUIDOrdering Facility: [facility] Address: [address] [place] [address] Performed By: #### 2 342-4, 288-3 ####[facility]ORATORYCLIA [id number] [address] [place] aPTT PPPon 07-30-2021 aPTT Coag (PPP) [Time] 64.1 s High 23.0-32.4 [facility] Comment on above: Order Comment: Speci men Type: BLOOD SPECIMENOrdering Facility: [facility] Address: [address] [address] Performed By: #### 1 4979-9 ####[facility]ORATORYCLIA [id number] [address] [place] Bacteria CSF Culton 07-30-19 22 Bacteria identified Cx Nom (CSF) CULTURE, CSF: No growth 14 days GRAM STAIN: No cells or organisms seen Gram stain performed on cytospun specimen. Gram stain confirmed by microbiology Normal [facility] Comment on above: Performed By: #### 6 06-4 ####[facility]ORATORYCLIA [id number] [address] [place] CASE MANAGEMon 07-29-2021 CASE MANAGEM Normal [facility] CBC W Auto Differential pane l (Bld)on 07-29-2021 Basophils (Bld) [#/Vol] 0.03 10*3/uL Normal <0.11 [facility] Comment on above: Order Comment: Speci men Type: BLOOD SPECIMENOrdering Facility: [facility] Address: [address] [place] [address] Performed By: #### 5 7021-8 ####[facility]ORATORYCLIA [id number] [address] [place] Basophils/100 WBC (Bld) 0.3 % Normal [facility] Comment on above: Order Comment: Speci men Type: BLOOD SPECIMENOrdering Facility: [facility] Address: [address] [address] Performed By: #### 5 7021-8 ####[facility]ORATORYCLIA [id number] [address] [place] Differential cell count method Nom (Bld) Auto Normal [facility] Comment on above: Order Comment: Speci men Type: BLOOD SPECIMENOrdering Facility: [facility] Address: [address] [address] Performed By: #### 5 7021-8 ####[facility]ATORYCLIA [id number] [address] [place] Eosinophils (Bld) [#/Vol] 0.40 10*3/uL Normal <0.46 [facility] Comment on above: Order Comment: Speci men Type: BLOOD SPECIMENOrdering Facility: [facility] Address: [address] [place] [address] Performed By: #### 5 7021-8 ####[facility]ORATORYCLIA [id number] [address] Eosinophils/100 WBC (Bld) 3.9 % Normal [facility] Comment on above: Order Comment: Speci men Type: BLOOD SPECIMENOrdering Facility: [facility] Address: [address] [place] [address] Performed By: #### 5 7021-8 ####[facility] LABORATORYCLIA [id number] [address] Erythrocyte distribution width (RBC) [Ratio] 17.1 % High 11.5-15.0 [facility] Comment on above: Order Comment: Speci men Type: BLOOD SPECIMENOrdering Facility: [facility] Address: [address] [place] [address] Performed By: #### 5 7021-8 ####[facility] LABORATORYCLIA [id number] [address] [place] Hematocrit (Bld) [Volume fraction] 32.0 % Low 39.0-51.0 [facility] Comment on above: Order Comment: Speci men Type: BLOOD SPECIMENOrdering Facility: [facility] Address: [address] [place] [address] Performed By: #### 5 7021-8 ####[facility] LABORATORYCLIA [id number] [address] [place] Hemoglobin (Bld) [Mass/Vol] 9.7 g/dL Low 13.0-17.0 [facility] Comment on above: Order Comment: Speci men Type: BLOOD SPECIMENOrdering Facility: [facility] Address: [address] [place] [address] Performed By: #### 5 7021-8 ####[facility] LABORATORYCLIA [id number] [address] IMMATURE GRAN % 0.6 % Normal [facility] Comment on above: Order Comment: Speci men Type: BLOOD SPECIMENOrdering Facility: [facility] Address: [address] [place] [address] Performed By: #### 5 7021-8 ####[facility] LABORATORYCLIA [id number] [address] IMMATURE GRAN ABS 0.06 k/uL Normal <0.10 [facility] Comment on above: Order Comment: Speci men Type: BLOOD SPECIMENOrdering Facility: [facility] Address: [address] [place] [address] Performed By: #### 5 7021-8 ####[facility] LABORATORYCLIA [id number] [address] Lymphocytes (Bld) [#/Vol] 1.96 10*3/uL Normal 1.00-4.00 [facility] Comment on above: Order Comment: Speci men Type: BLOOD SPECIMENOrdering Facility: [facility] Address: [address] [place] [address] Performed By: #### 5 7021-8 ####[facility] LABORATORYCLIA [id number] [address] Lymphocytes/100 WBC (Bld) 19.0 % Normal [facility] Comment on above: Order Comment: Speci men Type: BLOOD SPECIMENOrdering Facility: [facility] Address: [address] [place] [address] Performed By: #### 5 7021-8 ####[facility]ORATORYCLIA [id number] [address] [place] MCH (RBC) [Entitic mass] 28.0 pg Normal 26.0-34.0 [facility] Comment on above: Order Comment: Speci men Type: BLOOD SPECIMENOrdering Facility: [facility] Address: [address] [place] [address] Performed By: #### 5 7021-8 ####[facility] LABORATORYCLIA [id number] [address] [place] MCHC (RBC) [Mass/Vol] 30.3 g/dL Low 30.5-36.0 [facility] Comment on above: Order Comment: Speci men Type: BLOOD SPECIMENOrdering Facility: [facility] Address: [address] [place] [address] Performed By: #### 5 7021-8 ####[facility] LABORATORYCLIA [id number] [address] [place] MCV (RBC) [Entitic vol] 92.5 fL Normal 80.0-100.0 [facility] Comment on above: Order Comment: Speci men Type: BLOOD SPECIMENOrdering Facility: [facility] Address: [address] [place] [address] Performed By: #### 5 7021-8 ####[facility] LABORATORYCLIA [id number] [address] [place] Monocytes (Bld) [#/Vol] 0.53 10*3/uL Normal <0.87 [facility] Comment on above: Order Comment: Speci men Type: BLOOD SPECIMENOrdering Facility: [facility] Address: [address] [place] [address] Performed By: #### 5 7021-8 ####[facility] LABORATORYCLIA [id number] [address] Monocytes/100 WBC (Bld) 5.2 % Normal [facility] Comment on above: Order Comment: Speci men Type: BLOOD SPECIMENOrdering Facility: [facility] Address: [address] [place] [address] Performed By: #### 5 7021-8 ####[facility] LABORATORYCLIA [id number] [address] [place] Neutrophils (Bld) [#/Vol] 7.31 10*3/uL Normal 1.45-7.50 [facility] Comment on above: Order Comment: Speci men Type: BLOOD SPECIMENOrdering Facility: [facility] Address: [address] [place] [address] Performed By: #### 5 7021-8 ####[facility] LABORATORYCLIA [id number] [address] [place] Neutrophils/100 WBC (Bld) 71.0 % Normal [facility] Comment on above: Order Comment: Speci men Type: BLOOD SPECIMENOrdering Facility: [facility] Address: [facility] [place] [address] Performed By: #### 5 7021-8 ####[facility] LABORATORYCLIA [id number] [address] [place] Nucleated RBC (Bld) [#/Vol] 10*3/uL Normal <0.01 [facility] Comment on above: Order Comment: Speci men Type: BLOOD SPECIMENOrdering Facility: [facility] Address: [address] [place] [address] Performed By: #### 5 7021-8 ####[facility] LABORATORYCLIA [id number] [address] [place] Nucleated RBC/100 WBC (Bld) [Ratio] 0.0 /100 WBC Normal [facility] Comment on above: Order Comment: Speci men Type: BLOOD SPECIMENOrdering Facility: [facility] Address: [address] [place] [address] Performed By: #### 5 7021-8 ####[facility] LABORATORYCLIA [id number] [address] [place] Platelet mean volume (Bld) [Entitic vol] 11.2 fL Normal 9.0-12.7 [facility] Comment on above: Order Comment: Speci men Type: BLOOD SPECIMENOrdering Facility: [facility] Address: [address] [place], [place] [address] Performed By: #### 5 7021-8 ####[facility] LABORATORYCLIA [id number] [address] Platelets (Bld) [#/Vol] 276 10*3/uL Normal 150-400 [facility] Comment on above: Order Comment: Speci men Type: BLOOD SPECIMENOrdering Facility: [facility] Address: [address] [place] [address] Performed By: #### 5 7021-8 ####[facility] LABORATORYCLIA [id number] [address] [place] RBC (Bld) [#/Vol] 3.46 10*6/uL Low 4.20-6.00 [facility] Comment on above: Order Comment: Speci men Type: BLOOD SPECIMENOrdering Facility: [facility] Address: [address] [place] [address] Performed By: #### 5 7021-8 ####[facility] LABORATORYCLIA [id number] [address] WBC (Bld) [#/Vol] 10.29 10*3/uL Normal 3.70-11.00 [facility] Comment on above: Order Comment: Speci men Type: BLOOD SPECIMENOrdering Facility: [facility] Address: [address] [place] [address] Performed By: #### 5 7021-8 ####[facility] LABORATORYCLIA [id number] [address] NURSING PROGon 07-29-2021 NURSING PROG Normal [facility] THERAPY NTon 07-29-2021 THERAPY NT Normal [facility] aPTT PPPon 07-29-2021 aPTT Coag (PPP) [Time] 59.2 s High 23.0-32.4 [facility] Comment on above: Order Comment: Speci men Type: BLOOD SPECIMENOrdering Facility: [facility] Address: [address] [place] [address] Performed By: #### 1 4979-9 ####[facility] LABORATORYCLIA [id number] [place] [address] [place] ALLIED HEALTHon 07-28-2021 ALLIED HEALTH Normal [facility] Basic metabolic 2000 panelon 07-28-2021 Anion gap [Moles/Vol] 7 mmol/L Low 9-18 [facility] Comment on above: Order Comment: Speci men Type: BLOOD SPECIMENOrdering Facility: [facility] Address: [address] [place] [address] Performed By: #### 1 4338-8, 59788-0, 2777-1, 40252-0 ####[facility] LABORATORYCLIA [id number] [place] [address] [place] Calcium [Mass/Vol] 9.0 mg/dL Normal 8.5-10.2 [facility] Comment on above: Order Comment: Speci men Type: BLOOD SPECIMENOrdering Facility: [facility] Address: [address] [place] [address] Performed By: #### 1 4338-8, 20128-2, 2777-1, 84547-5 ####[facility] LABORATORYCLIA [id number] [place] [address] [place] Chloride [Moles/Vol] 94 mmol/L Low 97-105 [facility] Comment on above: Order Comment: Speci men Type: BLOOD SPECIMENOrdering Facility: [facility] Address: [address] [place] [address] Performed By: #### 1 4338-8, 54383-1, 277-1, 69674-1 ####[facility] LABORATORYCLIA [id number] [place] [id number] [place] CO2 [Moles/Vol] 31 mmol/L High 22-30 [facility] Comment on above: Order Comment: Speci men Type: BLOOD SPECIMENOrdering Facility: [facility] Address: [address] [place] [address] Performed By: #### 1 4338-8, 98360-9, 2776-1, 32566-0 ####[facility]ITALCLIA [id number] [place] [address] [place] [facility] Creatinine [Mass/Vol] 0.75 mg/dL Normal 0.73-1.22 [facility] Comment on above: Order Comment: Speccara feldman Type: BLOOD SPECIMENOrdering Facility: [facility] Address: [address] [place] [address] Performed By: #### 1 4338-8, 12799-4, 2776-, 27061-8 ####[facility]'S CENTERIA [id number] [address] STATES OF [facility] ESTIMATED GLOMERULAR FILTRATION RATE 98 mL/min/1.73m??? Normal >=60 [facility] Comment on above: Order Comment: Shira feldman Type: BLOOD SPECIMENOrdering Facility: [facility] Address: [address] [place] [address] Result Comment: Luzmaria mated Glomerular Filtration Rate [...] actual GFR. Performed By: #### 1 4338-8, 88831-5, 277-1, 47151-9 ####[facility]'S CENTERIA [id number] [place] [id number] [place] [facility] Glucose [Mass/Vol] 122 mg/dL High 74-99 [facility] Comment on above: Order Comment: Speci men Type: BLOOD SPECIMENOrdering Facility: [facility] Address: [address] [place] [address] Result Comment: The [place] Diabetes Association (ADA) provides guidance for cutoff [...] Standards of Medical Care in Diabetes 2016, [place] [employer]. Diabetes Care. 2016.39(Suppl 1). Performed By: #### 1 4338-8, 53770-1, 277-, 94737-9 ####[facility] LABORATORYCLIA [id number] [place] [address] [place] Potassium [Moles/Vol] 4.0 mmol/L Normal 3.7-5.1 [facility] Comment on above: Order Comment: Shira feldman Type: BLOOD SPECIMENOrdering Facility: [facility] Address: [address] [place] [address] Performed By: #### 1 4338-8, , 2776-05, 18283-9 ####[facility]PITALCLIA [id number] [place] [address] [place] [facility] Sodium [Moles/Vol] 132 mmol/L Low 136-144 [facility] Comment on above: Order Comment: Shira feldman Type: BLOOD SPECIMENOrdering Facility: [facility] Address: [address] [place] [address] Performed By: #### 1 4338-8, 09623-5, 2776-05, 08317-9 ####[facility] LABORATORYCLIA [id number] [address] [place] Urea nitrogen [Mass/Vol] 34 mg/dL High 9-24 [facility] Comment on above: Order Comment: Shira feldman Type: BLOOD SPECIMENOrdering Facility: [facility] Address: [address] [place] [address] Performed By: #### 1 4338-8, 50114-9, 2776-1, 96698-7 ####[facility] LABORATORYCLIA [id number] [place] [address] [place] CBC W Auto Differential pane l (Bld)on 07-28-2021 Basophils (Bld) [#/Vol] 0.04 10*3/uL Normal <0.11 [facility] Comment on above: Order Comment: Speci men Type: BLOOD SPECIMENOrdering Facility: [facility] Address: [address] [place] [address] Performed By: #### 5 7021-8 ####[facility]ORATORYCLIA [id number] [address] STATES [facility] Basophils/100 WBC (Bld) 0.5 % Normal [facility] Comment on above: Order Comment: Speci men Type: BLOOD SPECIMENOrdering Facility: [facility] Address: [address] [place] [address] Performed By: #### 5 7021-8 ####[facility] LABORATORYCLIA [id number] [address] Differential cell count method Nom (Bld) Auto Normal [facility] Comment on above: Order Comment: Speci men Type: BLOOD SPECIMENOrdering Facility: [facility] Address: [address] [place] [address] Performed By: #### 5 7021-8 ####[facility] LABORATORYCLIA [id number] [address] [place] Eosinophils (Bld) [#/Vol] 0.30 10*3/uL Normal <0.46 [facility] Comment on above: Order Comment: Speci men Type: BLOOD SPECIMENOrdering Facility: [facility] Address: [address] [place] [address] Performed By: #### 5 7021-8 ####[facility] LABORATORYCLIA [id number] [address] Eosinophils/100 WBC (Bld) 3.4 % Normal [facility] Comment on above: Order Comment: Speci men Type: BLOOD SPECIMENOrdering Facility: [facility] Address: [facility] [place] [address] Performed By: #### 5 7021-8 ####[facility] LABORATORYCLIA [id number] [address] Erythrocyte distribution width (RBC) [Ratio] 16.9 % High 11.5-15.0 [facility] Comment on above: Order Comment: Speci men Type: BLOOD SPECIMENOrdering Facility: [facility] Address: [address] [place] [address] Performed By: #### 5 7021-8 ####[facility] LABORATORYCLIA [id number] [address] Hematocrit (Bld) [Volume fraction] 30.3 % Low 39.0-51.0 [facility] Comment on above: Order Comment: Speci men Type: BLOOD SPECIMENOrdering Facility: [facility] Address: [address] [place] [address] Performed By: #### 5 7021-8 ####[facility] LABORATORYCLIA [id number] [address] Hemoglobin (Bld) [Mass/Vol] 9.2 g/dL Low 13.0-17.0 [facility] Comment on above: Order Comment: Speci men Type: BLOOD SPECIMENOrdering Facility: [facility] Address: [address] [place] [address] Performed By: #### 5 7021-8 ####[facility] LABORATORYCLIA [id number] [address] IMMATURE GRAN % 0.6 % Normal [facility] Comment on above: Order Comment: Speci men Type: BLOOD SPECIMENOrdering Facility: [facility] Address: [address] [place] [address] Performed By: #### 5 7021-8 ####[facility] LABORATORYCLIA [id number] [address] IMMATURE GRAN ABS 0.05 k/uL Normal <0.10 [facility] Comment on above: Order Comment: Speci men Type: BLOOD SPECIMENOrdering Facility: [facility] Address: [address] [place] [address] Performed By: #### 5 7021-8 ####[facility] LABORATORYCLIA [id number] [address] OF [facility] Lymphocytes (Bld) [#/Vol] 1.68 10*3/uL Normal 1.00-4.00 [facility] Comment on above: Order Comment: Speci men Type: BLOOD SPECIMENOrdering Facility: [facility] Address: [address] [place] [address] Performed By: #### 5 7021-8 ####[facility] LABORATORYCLIA [id number] [address] Lymphocytes/100 WBC (Bld) 19.2 % Normal [facility] Comment on above: Order Comment: Speci men Type: BLOOD SPECIMENOrdering Facility: [facility] Address: [address] [place] [address] Performed By: #### 5 7021-8 ####[facility] LABORATORYCLIA [id number] [address] OF [facility] MCH (RBC) [Entitic mass] 28.4 pg Normal 26.0-34.0 [facility] Comment on above: Order Comment: Speci men Type: BLOOD SPECIMENOrdering Facility: [facility] Address: [address] [place] [address] Performed By: #### 5 7021-8 ####[facility] LABORATORYCLIA [id number] [address] OF [facility] MCHC (RBC) [Mass/Vol] 30.4 g/dL Low 30.5-36.0 [facility] Comment on above: Order Comment: Speci men Type: BLOOD SPECIMENOrdering Facility: [facility] Address: [address] [place] [address] Performed By: #### 5 7021-8 ####[facility] LABORATORYCLIA [id number] [address] MCV (RBC) [Entitic vol] 93.5 fL Normal 80.0-100.0 [facility] Comment on above: Order Comment: Speci men Type: BLOOD SPECIMENOrdering Facility: [facility] Address: [address] [place] [address] Performed By: #### 5 7021-8 ####[facility]ATORYCLIA [id number] [address] [place] Monocytes (Bld) [#/Vol] 0.58 10*3/uL Normal <0.87 [facility] Comment on above: Order Comment: Speci men Type: BLOOD SPECIMENOrdering Facility: [facility] Address: [address] [place] [address] Performed By: #### 5 7021-8 ####[facility] LABORATORYCLIA [id number] [address] [place] Monocytes/100 WBC (Bld) 6.6 % Normal [facility] Comment on above: Order Comment: Speci men Type: BLOOD SPECIMENOrdering Facility: [facility] Address: [address] [place] [address] Performed By: #### 5 7021-8 ####[facility]ATORYCLIA [id number] [address] [place] Neutrophils (Bld) [#/Vol] 6.11 10*3/uL Normal 1.45-7.50 [facility] Comment on above: Order Comment: Speci men Type: BLOOD SPECIMENOrdering Facility: [facility] Address: [address] [place] [address] Performed By: #### 5 7021-8 ####[facility]ATORYCLIA [id number] [address] [place] Neutrophils/100 WBC (Bld) 69.7 % Normal [facility] Comment on above: Order Comment: Speci men Type: BLOOD SPECIMENOrdering Facility: [facility] Address: [address] [place] [address] Performed By: #### 5 7021-8 ####[facility]ORATORYCLIA [id number] [address] [place] Nucleated RBC (Bld) [#/Vol] 10*3/uL Normal <0.01 [facility] Comment on above: Order Comment: Speci men Type: BLOOD SPECIMENOrdering Facility: [facility] Address: [address] [place] [address] Performed By: #### 5 7021-8 ####[facility] LABORATORYCLIA [id number] [address] [place] Nucleated RBC/100 WBC (Bld) [Ratio] 0.0 /100 WBC Normal [facility] Comment on above: Order Comment: Speci men Type: BLOOD SPECIMENOrdering Facility: [facility] Address: [address] [place] [address] Performed By: #### 5 7021-8 ####[facility] LABORATORYCLIA [id number] [address] [place] Platelet mean volume (Bld) [Entitic vol] 11.3 fL Normal 9.0-12.7 [facility] Comment on above: Order Comment: Speci men Type: BLOOD SPECIMENOrdering Facility: [facility] Address: [address] [place] [address] Performed By: #### 5 7021-8 ####[facility] LABORATORYCLIA [id number] [address] [place] Platelets (Bld) [#/Vol] 238 10*3/uL Normal 150-400 [facility] Comment on above: Order Comment: Speci men Type: BLOOD SPECIMENOrdering Facility: [facility] Address: [address] [place] [address] Performed By: #### 5 7021-8 ####[facility] LABORATORYCLIA [id number] [address] [place] RBC (Bld) [#/Vol] 3.24 10*6/uL Low 4.20-6.00 [facility] Comment on above: Order Comment: Speci men Type: BLOOD SPECIMENOrdering Facility: [facility] Address: [address] [place] [address] Performed By: #### 5 7021-8 ####[facility] LABORATORYCLIA [id number] [address] WBC (Bld) [#/Vol] 8.76 10*3/uL Normal 3.70-11.00 [facility] Comment on above: Order Comment: Speci men Type: BLOOD SPECIMENOrdering Facility: [facility] Address: [address] [place] [address] Performed By: #### 5 7021-8 ####[facility] LABORATORYCLIA [id number] [address] MRI BRAIN WO/W IVCONon 07-28 MRI BRAIN WO/W IVCON Normal [facility] Magnesium SerPl-mCncon 07-28 Magnesium [Mass/Vol] 2.5 mg/dL High 1.7-2.3 [facility] Comment on above: Order Comment: Speci men Type: BLOOD SPECIMENOrdering Facility: [facility] Address: [address] [place] [address] Performed By: #### 1 4338-8, 09495-4, 277-1, 27784-9 ####[facility] LABORATORYCLIA [id number] [address] NURSING PROGon 07-28-2021 NURSING PROG Normal [facility] NURSING PROG Normal [facility] Phosphate SerPl-mCncon 07-28 Phosphate [Mass/Vol] 2.8 mg/dL Normal 2.7-4.8 [facility] Comment on above: Order Comment: Speci men Type: BLOOD SPECIMENOrdering Facility: [facility] Address: [address] [place] [address] Performed By: #### 1 4338-8, 13778-3, 2777-1, 79406-8 ####[facility]ATORYCLIA [id number] [address] [place] Prealbumin [Mass/Vol]on 07-06 Prealbumin Nephelometry [Mass/Vol] 25 mg/dL Normal 17-36 [facility] Comment on above: Order Comment: Speci men Type: BLOOD SPECIMENOrdering Facility: [facility] Address: [address] [place] [address] Performed By: #### 1 4338-8, 50615-8, 2777-1, 63018-1 ####[facility] LABORATORYCLIA [id number] [place] [address] [place] aPTT PPPon 07-28-2021 aPTT Coag (PPP) [Time] 53.0 s High 23.0-32.4 [facility] Comment on above: Order Comment: Speci men Type: BLOOD SPECIMENOrdering Facility: [facility] Address: [address] [place] [address] Performed By: #### 1 4979-9 ####[facility] [id number] [address] STATES OF [facility] aPTT Coag (PPP) [Time] 57.2 s High 23.0-32.4 [facility] Comment on above: Order Comment: Speci men Type: BLOOD SPECIMENOrdering Facility: [facility] Address: [address] [place] [address] Performed By: #### 1 4979-9 ####[facility] LABORATORYCLIA [id number] [address] [place] Bacteria CSF Culton 07-28-19 Bacteria identified Cx Nom (CSF) CULTURE, CSF: No growth 14 days GRAM STAIN: No organisms seen Rare Polymorphonuclear leukocytes Rare Red Blood Cells Gram stain performed on cytospun specimen. Normal [facility] Comment on above: Performed By: #### 6 06-4 ####[facility] LABORATORYCLIA [id number] [place] [address] [place] Bacteria Spec Resp Culton Bacteria identified Respiratory culture Nom (Unsp spec) CULTURE, RESPIRATORY: Rare Normal respiratory chris present GRAM STAIN: No organisms seen Rare Polymorphonuclear leukocytes Rare Epithelial cells Normal [facility] Comment on above: Performed By: #### 3 2355-0 ####[facility] LABORATORYCLIA [id number] [address] CASE MANAGEMon 07-27-2021 CASE MANAGEM Normal [facility] CBC W Auto Differential pane l (Bld)on 07-27-2021 Basophils (Bld) [#/Vol] 0.04 10*3/uL Normal <0.11 [facility] Comment on above: Order Comment: Speci men Type: BLOOD SPECIMENOrdering Facility: [facility] Address: [address] [place] [address] Performed By: #### 5 7021-8 ####[facility] LABORATORYCLIA [id number] [address] [place] [facility] Basophils/100 WBC (Bld) 0.4 % Normal [facility] Comment on above: Order Comment: Speci men Type: BLOOD SPECIMENOrdering Facility: [facility] Address: [address] [place] [address] Performed By: #### 5 7021-8 ####[facility] LABORATORYCLIA [id number] [address] [place] [facility] Differential cell count method Nom (Bld) Auto Normal [facility] Comment on above: Order Comment: Speci men Type: BLOOD SPECIMENOrdering Facility: [facility] Address: [facility] [place] [address] Performed By: #### 5 7021-8 ####[facility] LABORATORYCLIA [id number] [address] [place] Eosinophils (Bld) [#/Vol] 0.50 10*3/uL High <0.46 [facility] Comment on above: Order Comment: Speci men Type: BLOOD SPECIMENOrdering Facility: [facility] Address: [facility] [place] [address] Performed By: #### 5 7021-8 ####[facility]ATORYCLIA [id number] [address] Eosinophils/100 WBC (Bld) 5.2 % Normal [facility] Comment on above: Order Comment: Speci men Type: BLOOD SPECIMENOrdering Facility: [facility] Address: [address] [place] [address] Performed By: #### 5 7021-8 ####[facility] LABORATORYCLIA [id number] [address] Erythrocyte distribution width (RBC) [Ratio] 16.8 % High 11.5-15.0 [facility] Comment on above: Order Comment: Speci men Type: BLOOD SPECIMENOrdering Facility: [facility] Address: [address] [place] [address] Performed By: #### 5 7021-8 ####[facility] LABORATORYCLIA [id number] [address] Hematocrit (Bld) [Volume fraction] 29.8 % Low 39.0-51.0 [facility] Comment on above: Order Comment: Speci men Type: BLOOD SPECIMENOrdering Facility: [facility] Address: [address] [place] [address] Performed By: #### 5 7021-8 ####[facility] LABORATORYCLIA [id number] [address] [place] Hemoglobin (Bld) [Mass/Vol] 9.0 g/dL Low 13.0-17.0 [facility] Comment on above: Order Comment: Speci men Type: BLOOD SPECIMENOrdering Facility: [facility] Address: [address] [place] [address] Performed By: #### 5 7021-8 ####[facility]ORATORYCLIA [id number] [address] IMMATURE GRAN % 0.6 % Normal [facility] Comment on above: Order Comment: Speci men Type: BLOOD SPECIMENOrdering Facility: [facility] Address: [address] [place] [address] Performed By: #### 5 7021-8 ####[facility] LABORATORYCLIA [id number] [address] IMMATURE GRAN ABS 0.06 k/uL Normal <0.10 [facility] Comment on above: Order Comment: Speci men Type: BLOOD SPECIMENOrdering Facility: [facility] Address: [address] [place] [address] Performed By: #### 5 7021-8 ####[facility] LABORATORYCLIA [id number] [address] Lymphocytes (Bld) [#/Vol] 1.73 10*3/uL Normal 1.00-4.00 [facility] Comment on above: Order Comment: Speci men Type: BLOOD SPECIMENOrdering Facility: [facility] Address: [address] [place] [address] Performed By: #### 5 7021-8 ####[facility]ORATORYCLIA [id number] [address] Lymphocytes/100 WBC (Bld) 17.9 % Normal [facility] Comment on above: Order Comment: Speci men Type: BLOOD SPECIMENOrdering Facility: [facility] Address: [address] [place] [address] Performed By: #### 5 7021-8 ####[facility] LABORATORYCLIA [id number] [address] MCH (RBC) [Entitic mass] 28.1 pg Normal 26.0-34.0 [facility] Comment on above: Order Comment: Speci men Type: BLOOD SPECIMENOrdering Facility: [facility] Address: [address] [place] [address] Performed By: #### 5 7021-8 ####[facility] LABORATORYCLIA [id number] [address] MCHC (RBC) [Mass/Vol] 30.2 g/dL Low 30.5-36.0 [facility] Comment on above: Order Comment: Speci men Type: BLOOD SPECIMENOrdering Facility: [facility] Address: [address] [place] [address] Performed By: #### 5 7021-8 ####[facility]ORATORYCLIA [id number] [address] MCV (RBC) [Entitic vol] 93.1 fL Normal 80.0-100.0 [facility] Comment on above: Order Comment: Speci men Type: BLOOD SPECIMENOrdering Facility: [facility] Address: [address] [place] [address] Performed By: #### 5 7021-8 ####[facility] LABORATORYCLIA [id number] [address] [place] Monocytes (Bld) [#/Vol] 0.59 10*3/uL Normal <0.87 [facility] Comment on above: Order Comment: Speci men Type: BLOOD SPECIMENOrdering Facility: [facility] Address: [address] [place] [address] Performed By: #### 5 7021-8 ####[facility]ORATORYCLIA [id number] [address] Monocytes/100 WBC (Bld) 6.1 % Normal [facility] Comment on above: Order Comment: Speci men Type: BLOOD SPECIMENOrdering Facility: [facility] Address: [address] [place] [address] Performed By: #### 5 7021-8 ####[facility]ORATORYCLIA [id number] [address] [place] Neutrophils (Bld) [#/Vol] 6.75 10*3/uL Normal 1.45-7.50 [facility] Comment on above: Order Comment: Speci men Type: BLOOD SPECIMENOrdering Facility: [facility] Address: [address] [place] [address] Performed By: #### 5 7021-8 ####[facility]ORATORYCLIA [id number] [address] Neutrophils/100 WBC (Bld) 69.8 % Normal [facility] Comment on above: Order Comment: Speci men Type: BLOOD SPECIMENOrdering Facility: [facility] Address: [address] [place] [address] Performed By: #### 5 7021-8 ####[facility]ORATORYCLIA [id number] [address] [place] Nucleated RBC (Bld) [#/Vol] 10*3/uL Normal <0.01 [facility] Comment on above: Order Comment: Speci men Type: BLOOD SPECIMENOrdering Facility: [facility] Address: [address] [place] [address] Performed By: #### 5 7021-8 ####[facility]ORATORYCLIA [id number] [address] Nucleated RBC/100 WBC (Bld) [Ratio] 0.0 /100 WBC Normal [facility] Comment on above: Order Comment: Speci men Type: BLOOD SPECIMENOrdering Facility: [facility] Address: [address] [place] [address] Performed By: #### 5 7021-8 ####[facility]ORATORYCLIA [id number] [address] [place] Platelet mean volume (Bld) [Entitic vol] 11.3 fL Normal 9.0-12.7 [facility] Comment on above: Order Comment: Speci men Type: BLOOD SPECIMENOrdering Facility: [facility] Address: [address] Performed By: #### 5 7021-8 ####[facility]ORATORYCLIA [id number] [address] [place] Platelets (Bld) [#/Vol] 227 10*3/uL Normal 150-400 [facility] Comment on above: Order Comment: Speci men Type: BLOOD SPECIMENOrdering Facility: [facility] Address: [address] [place], [place] [address] Performed By: #### 5 7021-8 ####[facility]ORATORYCLIA [id number] [address] [place] RBC (Bld) [#/Vol] 3.20 10*6/uL Low 4.20-6.00 [facility] Comment on above: Order Comment: Speci men Type: BLOOD SPECIMENOrdering Facility: [facility] Address: [address] [place] [address] Performed By: #### 5 7021-8 ####[facility] LABORATORYCLIA [id number] [address] OF [facility] WBC (Bld) [#/Vol] 9.67 10*3/uL Normal 3.70-11.00 [facility] Comment on above: Order Comment: Speci men Type: BLOOD SPECIMENOrdering Facility: [facility] Address: [address] [place] [address] Performed By: #### 5 7021-8 ####[facility]ORATORYCLIA [id number] [address] CONSULT PROGon 07-27-2021 CONSULT PROG Normal [facility] CSF MANUAL DIFFon 07-27-2021 DIF TTL, CSF 100 cells counted Normal [facility] Comment on above: Order Comment: Speci men Type: CEREBROSPINAL FLUIDOrdering Facility: [facility] Address: [address] [place] [address] Performed By: #### L [id number], 39696-7, [id number] ####[facility] LABORATORYCLIA [id number] [address] [place] LYMPH%, CSF 75 % Normal 50-90 [facility] Comment on above: Order Comment: Speci men Type: CEREBROSPINAL FLUIDOrdering Facility: [facility] Address: [address] [place] [address] Performed By: #### L [id number], 25032-2, [id number] ####[facility] LABORATORYCLIA [id number] [place] [address] [place] MONO%, CSF 22 % Normal 10-50 [facility] Comment on above: Order Comment: Speci men Type: CEREBROSPINAL FLUIDOrdering Facility: [facility] Address: [address] [place] [address] Performed By: #### L SM1954, 82574-5, [id number] ####[facility]ORATORYCLIA [id number] [address] [place] NEUT%, CSF 2 % Normal 0-3 [facility] Comment on above: Order Comment: Speci men Type: CEREBROSPINAL FLUIDOrdering Facility: [facility] Address: [address] [place] [address] Performed By: #### L OR3890, 54119-6, [id number] ####[facility] LABORATORYCLIA [id number] [address] OTHER CL%, CSF 1 % Normal [facility] Comment on above: Order Comment: Speci men Type: CEREBROSPINAL FLUIDOrdering Facility: [facility] Address: [address] [place] [address] Result Comment: Path ologist review of microscopy results to follow Performed By: #### L EL1184, 91046-9, [id number] ####[facility]ORATORYCLIA [id number] [address] OF [facility] CSF PATHOLOGIST INTERP (LAB REFLEX ORDER-NO BILL)on 07-27-2021 CSF STAFF REVIEW Negative [facility] Comment on above: Order Comment: Speci men Type: CEREBROSPINAL FLUIDOrdering Facility: [facility] Address: [address] [place] [address] Performed By: #### L SD0337, 27609-7, [id number] ####[facility]ORATORYCLIA [id number] [address] Pathologist name Reviewed by Amador Stevens MD [facility] Comment on above: Order Comment: Speci men Type: CEREBROSPINAL FLUIDOrdering Facility: [facility] Address: [address] [place] [address] Performed By: #### L [id number], 90187-6, [id number] ####[facility]ORATORYCLIA [id number] [address] Cell count panel (CSF)on Clarity (CSF) Clear Normal Clear [facility] Comment on above: Order Comment: Speci men Type: CEREBROSPINAL FLUIDOrdering Facility: [facility] Address: [address] [place] [address] Performed By: #### L [id number], 99597-7, [id number] ####[facility] LABORATORYCLIA [id number] [address] Clarity (Unsp spec) Not Indicated Normal Clear [facility] Comment on above: Order Comment: Speci men Type: CEREBROSPINAL FLUIDOrdering Facility: [facility] Address: [address] [place] [address] Performed By: #### L UP7921, 52010-1, [id number] ####[facility]ORATORYCLIA [id number] [address] Color (CSF) Colorless Normal Colorless [facility] Comment on above: Order Comment: Speci men Type: CEREBROSPINAL FLUIDOrdering Facility: [facility] Address: [address] [place] [address] Performed By: #### L TX8375, 76418-3, [id number] ####[facility]ATORYCLIA [id number] [address] Color (Spun CSF) Not Indicated Normal Colorless [facility] Comment on above: Order Comment: Speci men Type: CEREBROSPINAL FLUIDOrdering Facility: [facility] Address: [address] [place] [address] Performed By: #### L US4724, 15724-9, [id number] ####[facility]ORATORYCLIA [id number] [address] CSF TUBE [employer]BER [employer] Normal [facility] Comment on above: Order Comment: Speci men Type: CEREBROSPINAL FLUIDOrdering Facility: [facility] Address: [address] [place] [address] Performed By: #### L [id number], 36098-2, [id number] ####[facility] LABORATORYCLIA [id number] [address] RBC Manual cnt (CSF) [#/Vol] 39 cells/uL High 0-5 [facility] Comment on above: Order Comment: Johni men Type: CEREBROSPINAL FLUIDOrdering Facility: [facility] Address: [address] [place] [address] Performed By: #### L TQ4768, 07528-2, [id number] ####[facility] LABORATORYCLIA [id number] [address] WBC Manual cnt (CSF) [#/Vol] 14 cells/uL High 0-5 [facility] Comment on above: Order Comment: Shira francia Type: CEREBROSPINAL FLUIDOrdering Facility: [facility] Address: [address] [place] [address] Performed By: #### L GQ4540, 09576-6, [id number] ####[facility]ORATORYCLIA [id number] [address] Glucose CSF-mCncon 2 Glucose (CSF) [Mass/Vol] 64 mg/dL Normal 40-70 [facility] Comment on above: Order Comment: Shira francia Type: CEREBROSPINAL FLUIDOrdering Facility: [facility] Address: [address] [place] [address] Result Comment: Lumb ar CSF glucose values of healthy patients are approximately 60% of the plasma values and must always be compared with a concurrently measured plasma value for adequate clinical interpretation.References: 1. Glucose HK (GLUC3) [package insert V 12.0 Armenian]. [employer], [place], [place]. September 2015. 2. Michelle Moore, Loki H. (2015). Chapter 7: Glucose and Lactate. FGarfield Alcocer al.(eds.), Cerebrospinal Fluid in Clinical Neurology. Miner: Hubub. Performed By: #### 2 342-4, 2880-3 ####[facility] LABORATORYCLIA [id number] [place] [address] [facility] NUTRITIONon 07-27-2021 NUTRITION Normal [facility] Prot CSF-mCncon 07-27-2021 Protein (CSF) [Mass/Vol] 58 mg/dL High 15-45 [facility] Comment on above: Order Comment: Speci men Type: CEREBROSPINAL FLUIDOrdering Facility: [facility] Address: [address] [place] [address] Performed By: #### 2 342-4, 2880-3 ####[facility]ORATORYCLIA [id number] [address] aPTT PPPon 07-27-2021 aPTT Coag (PPP) [Time] 68.4 s High 23.0-32.4 [facility] Comment on above: Order Comment: Speci men Type: BLOOD SPECIMENOrdering Facility: [facility] Address: [address] [place] [address] Performed By: #### 1 4979-9 ####[facility]ORATORYCLIA [id number] [address] aPTT Coag (PPP) [Time] 51.3 s High 23.0-32.4 [facility] Comment on above: Order Comment: Speci men Type: BLOOD SPECIMENOrdering Facility: [facility] Address: [address] [place] [address] Performed By: #### 1 4979-9 ####[facility] LABORATORYCLIA [id number] [address] [place] ALLIED HEALTHon 07-26-2021 ALLIED HEALTH HNO ID: [id number] Author: Stephanie Maldonado, delinquent tax collector assistant Service: Radiology Author Type: Cook Tortilla Type: Allied Health Filed: 07/26/2021 4:10 PM Note Text: Spoke with nurse. Pt getting new EVD today. Try tomorrow. Normal [facility] Bacteria CSF Culton 07-27-19 Bacteria identified Cx Nom (CSF) Abnormal [facility] Comment on above: Performed By: #### 6 06-4 ####[facility]ATORYCLIA [id number] [place] [address] [place] Basic metabolic 2000 panelon 07-26-2021 Anion gap [Moles/Vol] 6 mmol/L Low 9-18 [facility] Comment on above: Order Comment: Speci men Type: BLOOD SPECIMENOrdering Facility: [facility] Address: [address] [place] [address] Performed By: #### 2 4321-2 ####[facility] LABORATORYCLIA [id number] [place] [address] [place] Calcium [Mass/Vol] 9.2 mg/dL Normal 8.5-10.2 [facility] Comment on above: Order Comment: Speci men Type: BLOOD SPECIMENOrdering Facility: [facility] Address: [address] [place] [address] Performed By: #### 2 4321-2 ####[facility] LABORATORYCLIA [id number] [place] [address] [place] Chloride [Moles/Vol] 99 mmol/L Normal 97-105 [facility] Comment on above: Order Comment: Speci men Type: BLOOD SPECIMENOrdering Facility: [facility] Address: [address] [place] [address] Performed By: #### 2 4321-2 ####[facility]ORATORYCLIA [id number] [place] [address] [place] CO2 [Moles/Vol] 32 mmol/L High 22-30 [facility] Comment on above: Order Comment: Speci men Type: BLOOD SPECIMENOrdering Facility: [facility] Address: [address] [place] [address] Performed By: #### 2 4321-2 ####[facility] LABORATORYCLIA [id number] [place] [address] [place] Creatinine [Mass/Vol] 0.74 mg/dL Normal 0.73-1.22 [facility] Comment on above: Order Comment: Shira feldman Type: BLOOD SPECIMENOrdering Facility: [facility] Address: [address] [place] [address] Performed By: #### 2 4321-2 ####[facility] LABORATORYCLIA [id number] [address] [place] ESTIMATED GLOMERULAR FILTRATION RATE 98 mL/min/1.73m??? Normal >=60 [facility] Comment on above: Order Comment: Shira feldman Type: BLOOD SPECIMENOrdering Facility: [facility] Address: [address] [place] [address] Result Comment: Luzmaria mated Glomerular Filtration Rate [...] By: #### 2 4321-2 ####[facility]ORATORYCLIA [id number] [place] [address] [place] Glucose [Mass/Vol] 126 mg/dL High 74-99 [facility] Comment on above: Order Comment: Shira feldman Type: BLOOD SPECIMENOrdering Facility: [facility] Address: [address] [place] [address] Result Comment: The [place] Diabetes Association (ADA) provides guidance for cutoff [...] Standards of Medical Care in Diabetes 2016, [place] [employer]. Diabetes Care. 2016.39(Suppl 1). Performed By: #### 2 4321-2 ####[facility] LABORATORYCLIA [id number] [place] [address] [place] Potassium [Moles/Vol] 4.2 mmol/L Normal 3.7-5.1 [facility] Comment on above: Order Comment: Speci men Type: BLOOD SPECIMENOrdering Facility: [facility] Address: [address] [place] [address] Performed By: #### 2 4321-2 ####[facility] LABORATORYCLIA [id number] [place] [address] [place] Sodium [Moles/Vol] 137 mmol/L Normal 136-144 [facility] Comment on above: Order Comment: Speci men Type: BLOOD SPECIMENOrdering Facility: [facility] Address: [address] [place] [address] Performed By: #### 2 4321-2 ####[facility] LABORATORYCLIA [id number] [address] STATES [facility] Urea nitrogen [Mass/Vol] 36 mg/dL High 9-24 [facility] Comment on above: Order Comment: Speci men Type: BLOOD SPECIMENOrdering Facility: [facility] Address: [address] [place] [address] Performed By: #### 2 4321-2 ####[facility] LABORATORYCLIA [id number] [address] [place] CBC W Auto Differential pane l (Bld)on 07-26-2021 Basophils (Bld) [#/Vol] 0.04 10*3/uL Normal <0.11 [facility] Comment on above: Order Comment: Speci men Type: BLOOD SPECIMENOrdering Facility: [facility] Address: [address] [place] [address] Performed By: #### 5 7021-8 ####[facility] LABORATORYCLIA [id number] [address] [place] Basophils/100 WBC (Bld) 0.4 % Normal [facility] Comment on above: Order Comment: Speci men Type: BLOOD SPECIMENOrdering Facility: [facility] Address: [address] [place] [address] Performed By: #### 5 7021-8 ####[facility] LABORATORYCLIA [id number] [address] [place] Differential cell count method Nom (Bld) Auto Normal [facility] Comment on above: Order Comment: Speci men Type: BLOOD SPECIMENOrdering Facility: [facility] Address: [address] [place] [address] Performed By: #### 5 7021-8 ####[facility] LABORATORYCLIA [id number] [address] [place] Eosinophils (Bld) [#/Vol] 0.63 10*3/uL High <0.46 [facility] Comment on above: Order Comment: Speci men Type: BLOOD SPECIMENOrdering Facility: [facility] Address: [address] [place] [address] Performed By: #### 5 7021-8 ####[facility] [facility]ITAL LABORATORYCLIA [id number] [address] Eosinophils/100 WBC (Bld) 5.8 % Normal [facility] Comment on above: Order Comment: Speci men Type: BLOOD SPECIMENOrdering Facility: [facility] Address: [address] [place] [address] Performed By: #### 5 7021-8 ####[facility] LABORATORYCLIA [id number] [address] [place] Erythrocyte distribution width (RBC) [Ratio] 16.8 % High 11.5-15.0 [facility] Comment on above: Order Comment: Speci men Type: BLOOD SPECIMENOrdering Facility: [facility] Address: [address] [place] [address] Performed By: #### 5 7021-8 ####[facility] LABORATORYCLIA [id number] [address] [place] Hematocrit (Bld) [Volume fraction] 31.2 % Low 39.0-51.0 [facility] Comment on above: Order Comment: Speci men Type: BLOOD SPECIMENOrdering Facility: [facility] Address: [address] [place] [address] Performed By: #### 5 7021-8 ####[facility] LABORATORYCLIA [id number] [address] STATES OF [facility] Hemoglobin (Bld) [Mass/Vol] 9.1 g/dL Low 13.0-17.0 [facility] Comment on above: Order Comment: Speci men Type: BLOOD SPECIMENOrdering Facility: [facility] Address: [address] [place] [address] Performed By: #### 5 7021-8 ####[facility] LABORATORYCLIA [id number] [address] OF [facility] IMMATURE GRAN % 0.6 % Normal [facility] Comment on above: Order Comment: Speci men Type: BLOOD SPECIMENOrdering Facility: [facility] Address: [address] [place] [address] Performed By: #### 5 7021-8 ####[facility] LABORATORYCLIA [id number] [address] IMMATURE GRAN ABS 0.07 k/uL Normal <0.10 [facility] Comment on above: Order Comment: Speci men Type: BLOOD SPECIMENOrdering Facility: [facility] Address: [address] [place] [address] Performed By: #### 5 7021-8 ####[facility] LABORATORYCLIA [id number] [address] [place] Lymphocytes (Bld) [#/Vol] 2.16 10*3/uL Normal 1.00-4.00 [facility] Comment on above: Order Comment: Speci men Type: BLOOD SPECIMENOrdering Facility: [facility] Address: [address] [place] [address] Performed By: #### 5 7021-8 ####[facility] LABORATORYCLIA [id number] [address] Lymphocytes/100 WBC (Bld) 20.0 % Normal [facility] Comment on above: Order Comment: Speci men Type: BLOOD SPECIMENOrdering Facility: [facility] Address: [address] [place] [address] Performed By: #### 5 7021-8 ####[facility] LABORATORYCLIA [id number] [address] MCH (RBC) [Entitic mass] 27.7 pg Normal 26.0-34.0 [facility] Comment on above: Order Comment: Speci men Type: BLOOD SPECIMENOrdering Facility: [facility] Address: [address] [place] [address] Performed By: #### 5 7021-8 ####[facility] LABORATORYCLIA [id number] [address] MCHC (RBC) [Mass/Vol] 29.2 g/dL Low 30.5-36.0 [facility] Comment on above: Order Comment: Speci men Type: BLOOD SPECIMENOrdering Facility: [facility] Address: [address] [place] [address] Performed By: #### 5 7021-8 ####[facility] LABORATORYCLIA [id number] [address] MCV (RBC) [Entitic vol] 95.1 fL Normal 80.0-100.0 [facility] Comment on above: Order Comment: Speci men Type: BLOOD SPECIMENOrdering Facility: [facility] Address: [address] [place] [address] Performed By: #### 5 7021-8 ####[facility] LABORATORYCLIA [id number] [address] Monocytes (Bld) [#/Vol] 0.63 10*3/uL Normal <0.87 [facility] Comment on above: Order Comment: Speci men Type: BLOOD SPECIMENOrdering Facility: [facility] Address: [address] [address] Performed By: #### 5 7021-8 ####[facility]ORATORYCLIA [id number] [address] [place] Monocytes/100 WBC (Bld) 5.8 % Normal [facility] Comment on above: Order Comment: Speci men Type: BLOOD SPECIMENOrdering Facility: [facility] Address: [address] [place] [address] Performed By: #### 5 7021-8 ####[facility] LABORATORYCLIA [id number] [place] [address] [place] Neutrophils (Bld) [#/Vol] 7.25 10*3/uL Normal 1.45-7.50 [facility] Comment on above: Order Comment: Speci men Type: BLOOD SPECIMENOrdering Facility: [facility] Address: [address] [place] [address] Performed By: #### 5 7021-8 ####[facility]ORATORYCLIA [id number] [address] [place] Neutrophils/100 WBC (Bld) 67.4 % Normal [facility] Comment on above: Order Comment: Speci men Type: BLOOD SPECIMENOrdering Facility: [facility] Address: [address] [place] [address] Performed By: #### 5 7021-8 ####[facility]ORATORYCLIA [id number] [place] [address] [place] Nucleated RBC (Bld) [#/Vol] 10*3/uL Normal <0.01 [facility] Comment on above: Order Comment: Speci men Type: BLOOD SPECIMENOrdering Facility: [facility] Address: [address] [place] [address] Performed By: #### 5 7021-8 ####[facility]ORATORYCLIA [id number] [place] [address] [place] Nucleated RBC/100 WBC (Bld) [Ratio] 0.0 /100 WBC Normal [facility] Comment on above: Order Comment: Speci men Type: BLOOD SPECIMENOrdering Facility: [facility] Address: [address] [place], [place] [address] Performed By: #### 5 7021-8 ####[facility] LABORATORYCLIA [id number] [address] STATES [place] Platelet mean volume (Bld) [Entitic vol] 11.2 fL Normal 9.0-12.7 [facility] Comment on above: Order Comment: Speci men Type: BLOOD SPECIMENOrdering Facility: [facility] Address: [address] [place], [place] [address] Performed By: #### 5 7021-8 ####[facility] LABORATORYCLIA [id number] [address] [place] Platelets (Bld) [#/Vol] 245 10*3/uL Normal 150-400 [facility] Comment on above: Order Comment: Speci men Type: BLOOD SPECIMENOrdering Facility: [facility] Address: [address] [place] [address] Performed By: #### 5 7021-8 ####[facility] LABORATORYCLIA [id number] [place] [address] [place] RBC (Bld) [#/Vol] 3.28 10*6/uL Low 4.20-6.00 [facility] Comment on above: Order Comment: Speci men Type: BLOOD SPECIMENOrdering Facility: [facility] Address: [address] [place], [place] [address] Performed By: #### 5 7021-8 ####[facility] LABORATORYCLIA [id number] [place] [address] [place] WBC (Bld) [#/Vol] 10.78 10*3/uL Normal 3.70-11.00 [facility] Comment on above: Order Comment: Speci men Type: BLOOD SPECIMENOrdering Facility: [facility] Address: [address] [place], [place] [address] Performed By: #### 5 7021-8 ####[facility]ORATORYCLIA [id number] [place] [address] [place] CSF MANUAL DIFFon 07-26-2021 DIF TTL, CSF 100 cells counted Normal [facility] Comment on above: Order Comment: Speci men Type: CEREBROSPINAL FLUIDOrdering Facility: [facility] Address: [address] [place] [address] Performed By: #### 3 4563-7, [id number], [id number] ####[facility]ORATORYCLIA [id number] [place] [address] [place] LYMPH%, CSF 26 % Low 50-90 [facility] Comment on above: Order Comment: Speci men Type: CEREBROSPINAL FLUIDOrdering Facility: [facility] Address: [address] [place] [address] Performed By: #### 3 4563-7, [id number], [id number] ####[facility]ORATORYCLIA [id number] [address] STATES [place] MACRO%, CSF 10 % High <1 [facility] Comment on above: Order Comment: Speci men Type: CEREBROSPINAL FLUIDOrdering Facility: [facility] Address: [address] [place] [address] Performed By: #### 3 4563-7, [id number], [id number] ####[facility]ORATORYCLIA [id number] [place] [address] [place] MONO%, CSF 20 % Normal 10-50 [facility] Comment on above: Order Comment: Speci men Type: CEREBROSPINAL FLUIDOrdering Facility: [facility] Address: [address] [place] [address] Performed By: #### 3 4563-7, [id number], [id number] ####[facility]ORATORYCLIA [id number] [address] [place] NEUT%, CSF 40 % High 0-3 [facility] Comment on above: Order Comment: Speci men Type: CEREBROSPINAL FLUIDOrdering Facility: [facility] Address: [address] [place] [address] Performed By: #### 3 4563-7, [id number], [id number] ####[facility] LABORATORYCLIA [id number] [address] STATES OF [facility] OTHER CL%, CSF 2 % Normal [facility] Comment on above: Order Comment: Speci men Type: CEREBROSPINAL FLUIDOrdering Facility: [facility] Address: [address] [place] [address] Result Comment: Path review to follow. Performed By: #### 3 4563-7, [id number], [id number] ####[facility] LABORATORYCLIA [id number] [address] [place] REAC LYMPH %, CSF 2 % Normal [facility] Comment on above: Order Comment: Speci men Type: CEREBROSPINAL FLUIDOrdering Facility: [facility] Address: [address] [place] [address] Performed By: #### 3 4563-7, [id number], [id number] ####[facility] LABORATORYCLIA [id number] [address] CSF PATHOLOGIST INTERP (LAB REFLEX ORDER-NO BILL)on 07-26-2021 CSF STAFF REVIEW Negative for maligna nt cells. Rare bacteria present, cocci in pairs and chains. Correlation with CSF cultures is recommended. [facility] Comment on above: Order Comment: Speci men Type: CEREBROSPINAL FLUIDOrdering Facility: [facility] Address: [address] [place] [address] Performed By: #### 3 4563-7, [id number], [id number] ####[facility] LABORATORYCLIA [id number] [address] Pathologist name Reviewed by Amador Stevens MD [facility] Comment on above: Order Comment: Speci men Type: CEREBROSPINAL FLUIDOrdering Facility: [facility] Address: [address] [place] [address] Performed By: #### 3 4563-7, [id number], [id number] ####[facility]ORATORYCLIA [id number] [address] Cell count panel (CSF)on Clarity (CSF) Slightly Cloudy Abnormal Clear [facility] Comment on above: Order Comment: Speci men Type: CEREBROSPINAL FLUIDOrdering Facility: [facility] Address: [address] [address] Performed By: #### 3 4563-7, [id number], [id number] ####[facility] LABORATORYCLIA [id number] [address] Clarity (Unsp spec) Clear Normal Clear [facility] Comment on above: Order Comment: Speci men Type: CEREBROSPINAL FLUIDOrdering Facility: [facility] Address: [facility] [address] Performed By: #### 3 4563-7, [id number], [id number] ####[facility]ORATORYCLIA [id number] [address] Color (CSF) Colorless Normal Colorless [facility] Comment on above: Order Comment: Speci men Type: CEREBROSPINAL FLUIDOrdering Facility: [facility] Address: [address] [place] [address] Performed By: #### 3 4563-7, [id number], [id number] ####[facility]ORATORYCLIA [id number] [address] Color (Spun CSF) Not Indicated Normal Colorless [facility] Comment on above: Order Comment: Speci men Type: CEREBROSPINAL FLUIDOrdering Facility: [facility] Address: [address] [address] Performed By: #### 3 4563-7, [id number], [id number] ####[facility]ORATORYCLIA [id number] [address] CSF [employer] Normal [facility] Comment on above: Order Comment: Speci men Type: CEREBROSPINAL FLUIDOrdering Facility: [facility] Address: [address] [place] [address] Performed By: #### 3 4563-7, [id number], [id number] ####[facility] LABORATORYCLIA [id number] [address] RBC Manual cnt (CSF) [#/Vol] 1 cells/uL Normal 0-5 [facility] Comment on above: Order Comment: Speci men Type: CEREBROSPINAL FLUIDOrdering Facility: [facility] Address: [address] [place] [address] Performed By: #### 3 4563-7, [id number], [id number] ####[facility] LABORATORYCLIA [id number] [address] WBC Manual cnt (CSF) [#/Vol] 50 cells/uL High 0-5 [facility] Comment on above: Order Comment: Speci men Type: CEREBROSPINAL FLUIDOrdering Facility: [facility] Address: [address] [place] [address] Performed By: #### 3 4563-7, [id number], [id number] ####[facility] LABORATORYCLIA [id number] [address] OF [facility] Glucose CSF-ncon 2 Glucose (CSF) [Mass/Vol] 64 mg/dL Normal 40-70 [facility] Comment on above: Order Comment: Speci men Type: CEREBROSPINAL FLUIDOrdering Facility: [facility] Address: [address] [place] [address] Result Comment: Lumb ar CSF glucose values of healthy patients are approximately 60% of the plasma values and must always be compared with a concurrently measured plasma value for adequate clinical interpretation.References: 1. Glucose HK (GLUC3) [package insert V 12.0 Armenian]. [employer], [place], [place]. September 2015. 2. Michelle Moore, Loki, H. (2015). Chapter 7: Glucose and Lactate. Marianela Rothman.(eds.), Cerebrospinal Fluid in Clinical Neurology. Miner: Hubub. Performed By: #### 2 880-3, 2342-4 ####[facility] LABORATORYCLIA [id number] [address] Magnesium SerPl-ncon 07-26 Magnesium [Mass/Vol] 2.3 mg/dL Normal 1.7-2.3 [facility] Comment on above: Order Comment: Speci men Type: BLOOD SPECIMENOrdering Facility: [facility] Address: [address] [place] [address] Performed By: #### 1 9123-9, 2777-1, 3016-3 ####[facility] LABORATORYCLIA [id number] [address] NURSING PROGon 07-26-2021 NURSING PROG Normal [facility] Phosphate SerPl-mCncon 07-26 Phosphate [Mass/Vol] 2.6 mg/dL Low 2.7-4.8 [facility] Comment on above: Order Comment: Speci men Type: BLOOD SPECIMENOrdering Facility: [facility] Address: [address] [place] [address] Performed By: #### 1 9123-9, 2777-1, 3016-3 ####[facility] LABORATORYCLIA [id number] [address] Prot CSF-mCncon 07-26-2021 Protein (CSF) [Mass/Vol] 64 mg/dL High 15-45 [facility] Comment on above: Order Comment: Speci men Type: CEREBROSPINAL FLUIDOrdering Facility: [facility] Address: [address] [place] [address] Performed By: #### 2 880-3, 2342-4 ####[facility]ORATORYCLIA [id number] [address] THERAPY NTon 07-26-2021 THERAPY NT Normal [facility] TSH SerPl-aCncon 07-26-2021 TSH Qn 1.470 m[IU]/L Normal 0.270-4.200 [facility] Comment on above: Order Comment: Speci men Type: BLOOD SPECIMENOrdering Facility: [facility] Address: [address] [place] [address] Performed By: #### 1 9123-9, 2777-1, 3016-3 ####[facility]ORATORYCLIA [id number] [address] VITAMIN B12 BLOODon 07-27-19 22 Cobalamin (Vitamin B12) [Mass/Vol] 934 pg/mL Normal 232-1,245 [facility] Comment on above: Order Comment: Speci men Type: BLOOD SPECIMENOrdering Facility: [facility] Address: [address] [place] [address] Performed By: #### B 12 ####[facility] LABORATORYCLIA [id number] [address] aPTT PPPon 07-26-2021 aPTT Coag (PPP) [Time] 53.6 s High 23.0-32.4 [facility] Comment on above: Order Comment: Speci men Type: BLOOD SPECIMENOrdering Facility: [facility] Address: [address] [place] [address] Performed By: #### 1 4979-9 ####[facility] LABORATORYCLIA [id number] [address] aPTT Coag (PPP) [Time] 44.9 s High 23.0-32.4 [facility] Comment on above: Order Comment: Speci men Type: BLOOD SPECIMENOrdering Facility: [facility] Address: [address] [place] [address] Performed By: #### 1 4979-9 ####[facility] LABORATORYCLIA [id number] [address] OF [facility] ALLIED HEALTHon 07-25-2021 ALLIED HEALTH HNO ID: [id number] Author: RT Rajwinder(R) Service: Radiology Author Type: Technologist Type: Allied Health Filed: 07/25/2021 1:37 PM Note Text: Called floor for MRI screening form [id number] Normal [facility] Bacteria Bld Culton 03-21-20 22 Bacteria identified Cx Nom (Bld) CULTURE, BLOOD: No growth 5 days Normal [facility] Comment on above: Performed By: #### 6 00-7 ####[facility] LABORATORYCLIA [id number] [address] Bacteria identified Cx Nom (Bld) CULTURE, BLOOD: No growth 5 days Normal [facility] Comment on above: Performed By: #### 6 00-7 ####[facility] LABORATORYCLIA [id number] [address] OF [facility] CASE MANAGEMon 07-25-2021 CASE MANAGEM Normal [facility] CBC W Auto Differential pane l (Bld)on 07-25-2021 Basophils (Bld) [#/Vol] 0.06 10*3/uL Normal <0.11 [facility] Comment on above: Order Comment: Speci men Type: BLOOD SPECIMENOrdering Facility: [facility] Address: [address] [place] [address] Performed By: #### 5 7021-8 ####[facility] LABORATORYCLIA [id number] [address] STATES [facility] Basophils/100 WBC (Bld) 0.6 % Normal [facility] Comment on above: Order Comment: Speci men Type: BLOOD SPECIMENOrdering Facility: [facility] Address: [address] [place] [address] Performed By: #### 5 7021-8 ####[facility] LABORATORYCLIA [id number] [address] Differential cell count method Nom (Bld) Auto Normal [facility] Comment on above: Order Comment: Speci men Type: BLOOD SPECIMENOrdering Facility: [facility] Address: [address] [place] [address] Performed By: #### 5 7021-8 ####[facility]ATORYCLIA [id number] [address] [place] Eosinophils (Bld) [#/Vol] 0.26 10*3/uL Normal <0.46 [facility] Comment on above: Order Comment: Speci men Type: BLOOD SPECIMENOrdering Facility: [facility] Address: [address] [place] [address] Performed By: #### 5 7021-8 ####[facility] LABORATORYCLIA [id number] [address] Eosinophils/100 WBC (Bld) 2.5 % Normal [facility] Comment on above: Order Comment: Speci men Type: BLOOD SPECIMENOrdering Facility: [facility] Address: [address] [place] [address] Performed By: #### 5 7021-8 ####[facility] LABORATORYCLIA [id number] [address] [place] Erythrocyte distribution width (RBC) [Ratio] 16.9 % High 11.5-15.0 [facility] Comment on above: Order Comment: Speci men Type: BLOOD SPECIMENOrdering Facility: [facility] Address: [address] [place] [address] Performed By: #### 5 7021-8 ####[facility] LABORATORYCLIA [id number] [address] [place] Hematocrit (Bld) [Volume fraction] 29.6 % Low 39.0-51.0 [facility] Comment on above: Order Comment: Speci men Type: BLOOD SPECIMENOrdering Facility: [facility] Address: [address] [place] [address] Performed By: #### 5 7021-8 ####[facility] LABORATORYCLIA [id number] [address] [place] Hemoglobin (Bld) [Mass/Vol] 8.8 g/dL Low 13.0-17.0 [facility] Comment on above: Order Comment: Speci men Type: BLOOD SPECIMENOrdering Facility: [facility] Address: [address] [place] [address] Performed By: #### 5 7021-8 ####[facility] LABORATORYCLIA [id number] [address] IMMATURE GRAN % 0.6 % Normal [facility] Comment on above: Order Comment: Speci men Type: BLOOD SPECIMENOrdering Facility: [facility] Address: [address] [place] [address] Performed By: #### 5 7021-8 ####[facility] LABORATORYCLIA [id number] [address] IMMATURE GRAN ABS 0.06 k/uL Normal <0.10 [facility] Comment on above: Order Comment: Speci men Type: BLOOD SPECIMENOrdering Facility: [facility] Address: [address] [place] [address] Performed By: #### 5 7021-8 ####[facility] LABORATORYCLIA [id number] [address] STATES [facility] Lymphocytes (Bld) [#/Vol] 2.15 10*3/uL Normal 1.00-4.00 [facility] Comment on above: Order Comment: Speci men Type: BLOOD SPECIMENOrdering Facility: [facility] Address: [address] [place] [address] Performed By: #### 5 7021-8 ####[facility] LABORATORYCLIA [id number] [address] Lymphocytes/100 WBC (Bld) 20.7 % Normal [facility] Comment on above: Order Comment: Speci men Type: BLOOD SPECIMENOrdering Facility: [facility] Address: [address] [place] [address] Performed By: #### 5 7021-8 ####[facility] LABORATORYCLIA [id number] [address] [place] MCH (RBC) [Entitic mass] 28.2 pg Normal 26.0-34.0 [facility] Comment on above: Order Comment: Speci men Type: BLOOD SPECIMENOrdering Facility: [facility] Address: [address] [place] [address] Performed By: #### 5 7021-8 ####[facility] LABORATORYCLIA [id number] [address] [place] [facility] MCHC (RBC) [Mass/Vol] 29.7 g/dL Low 30.5-36.0 [facility] Comment on above: Order Comment: Speci men Type: BLOOD SPECIMENOrdering Facility: [facility] Address: [address] [place] [address] Performed By: #### 5 7021-8 ####[place] [facility] [facility]ORATORYCLIA [id number] [address] MCV (RBC) [Entitic vol] 94.9 fL Normal 80.0-100.0 [facility] Comment on above: Order Comment: Speci men Type: BLOOD SPECIMENOrdering Facility: [facility] Address: [address] [place] [address] Performed By: #### 5 7021-8 ####[facility] LABORATORYCLIA [id number] [address] Monocytes (Bld) [#/Vol] 0.62 10*3/uL Normal <0.87 [facility] Comment on above: Order Comment: Speci men Type: BLOOD SPECIMENOrdering Facility: [facility] Address: [address] [place] [address] Performed By: #### 5 7021-8 ####[facility] LABORATORYCLIA [id number] [address] Monocytes/100 WBC (Bld) 6.0 % Normal [facility] Comment on above: Order Comment: Speci men Type: BLOOD SPECIMENOrdering Facility: [facility] Address: [address] [place] [address] Performed By: #### 5 7021-8 ####[facility] LABORATORYCLIA [id number] [address] [place] Neutrophils (Bld) [#/Vol] 7.25 10*3/uL Normal 1.45-7.50 [facility] Comment on above: Order Comment: Speci men Type: BLOOD SPECIMENOrdering Facility: [facility] Address: [address] [address] Performed By: #### 5 7021-8 ####[facility] LABORATORYCLIA [id number] [address] Neutrophils/100 WBC (Bld) 69.6 % Normal [facility] Comment on above: Order Comment: Speci men Type: BLOOD SPECIMENOrdering Facility: [facility] Address: [address] [place] [address] Performed By: #### 5 7021-8 ####[facility] LABORATORYCLIA [id number] [address] Nucleated RBC (Bld) [#/Vol] 10*3/uL Normal <0.01 [facility] Comment on above: Order Comment: Speci men Type: BLOOD SPECIMENOrdering Facility: [facility] Address: [address] [place] [address] Performed By: #### 5 7021-8 ####[facility] LABORATORYCLIA [id number] [address] Nucleated RBC/100 WBC (Bld) [Ratio] 0.0 /100 WBC Normal [facility] Comment on above: Order Comment: Speci men Type: BLOOD SPECIMENOrdering Facility: [facility] Address: [address] [place] [address] Performed By: #### 5 7021-8 ####[facility] LABORATORYCLIA [id number] [address] Platelet mean volume (Bld) [Entitic vol] 11.3 fL Normal 9.0-12.7 [facility] Comment on above: Order Comment: Speci men Type: BLOOD SPECIMENOrdering Facility: [facility] Address: [address] [place] [address] Performed By: #### 5 7021-8 ####[facility]ORATORYCLIA [id number] [address] Platelets (Bld) [#/Vol] 243 10*3/uL Normal 150-400 [facility] Comment on above: Order Comment: Johni francia Type: BLOOD SPECIMENOrdering Facility: [facility] Address: [address] [place] [address] Performed By: #### 5 7021-8 ####[facility] LABORATORYCLIA [id number] [place] [address] [place] RBC (Bld) [#/Vol] 3.12 10*6/uL Low 4.20-6.00 [facility] Comment on above: Order Comment: Shira feldman Type: BLOOD SPECIMENOrdering Facility: [facility] Address: [address] [place] [address] Performed By: #### 5 7021-8 ####[facility] LABORATORYCLIA [id number] [address] OF [facility] WBC (Bld) [#/Vol] 10.40 10*3/uL Normal 3.70-11.00 [facility] Comment on above: Order Comment: Shira feldman Type: BLOOD SPECIMENOrdering Facility: [facility] Address: [address] [place] [address] Performed By: #### 5 7021-8 ####[facility]ORATORYCLIA [id number] [address] [place] CONSULT PROGon 07-25-2021 CONSULT PROG Normal [facility] MYCOPLASMA PNEUM IGMon 07-25 M. PNEUMO IGM, QUAL Negative Normal Negative [facility] Comment on above: Order Comment: Shira feldman Type: BLOOD SPECIMENOrdering Facility: [facility] Address: [address] [place] [address] Result Comment: Myco plasma pneumoniae IgM antibody test is used as an aid in diagnosis of recent infection with M. pneumoniae. It may occasionally remain elevated for extended periods after an acute infection. Cannot exclude recent infection if the specimen collected 7-10 days after onset of signs and symptoms. Clinical correlation is required. Performed By: #### M YCOPM ####[facility] LABCLIA [id number] NILESH MAYSVILLEDESK [id number] [address] [place] NURSING PROGon 07-25-2021 NURSING PROG Normal [facility] THERAPY NTon 07-25-2021 THERAPY NT Normal [facility] THERAPY NT Normal [facility] aPTT PPPon 07-25-2021 aPTT Coag (PPP) [Time] 62.6 s High 23.0-32.4 [facility] Comment on above: Order Comment: Speci men Type: BLOOD SPECIMENOrdering Facility: [facility] Address: [address] [place] [address] Performed By: #### 1 4979-9 ####[facility] LABORATORYCLIA [id number] [address] [place] Bacteria Ur Culton Bacteria identified Cx Nom (U) CULTURE, URINE: No growth (<100 CFU/ml) Normal [facility] Comment on above: Performed By: #### 6 30-4 ####[facility]ORATORYCLIA [id number] [place] [address] [place] Basic metabolic 2000 panelon 07-24-2021 Anion gap [Moles/Vol] 13 mmol/L Normal 9-18 [facility] Comment on above: Order Comment: Speci men Type: BLOOD SPECIMENOrdering Facility: [facility] Address: [address] [place] [address] Performed By: #### 1 9123-9, PROCCARLITOS, 2777-1, 19146-2 ####[facility]ORATORYCLIA [id number] [place] [address] [place] Calcium [Mass/Vol] 9.5 mg/dL Normal 8.5-10.2 [facility] Comment on above: Order Comment: Speci men Type: BLOOD SPECIMENOrdering Facility: [facility] Address: [address] [place] [address] Performed By: #### 1 9123-9, PROCCARLITOS, 2777-1, 97485-1 ####[facility] LABORATORYCLIA [id number] [address] STATES OF [facility] Chloride [Moles/Vol] 102 mmol/L Normal 97-105 [facility] Comment on above: Order Comment: Speci men Type: BLOOD SPECIMENOrdering Facility: [facility] Address: [address] [place] [address] Performed By: #### 1 9123-9, PROCAL, 2777-1, 08162-5 ####[facility]ITALCL[facility] [id number] [address] OF [facility] CO2 [Moles/Vol] 28 mmol/L Normal 22-30 [facility] Comment on above: Order Comment: Speci men Type: BLOOD SPECIMENOrdering Facility: [facility] Address: [address] [place] [address] Performed By: #### 1 9123-9, PROCWV, 2777-1, 86620-7 ####[facility]'S CENTERIA [id number] [address] Creatinine [Mass/Vol] 0.86 mg/dL Normal 0.73-1.22 [facility] Comment on above: Order Comment: Speci men Type: BLOOD SPECIMENOrdering Facility: [facility] Address: [address] [place] [address] Performed By: #### 1 9123-9, [facility], 2777-1, 77932-5 ####[facility]DR[facility]'S CENTERIA [id number] [address] ESTIMATED GLOMERULAR FILTRATION RATE 94 mL/min/1.73m??? Normal >=60 [facility] Comment on above: Order Comment: Speci men Type: BLOOD SPECIMENOrdering Facility: [facility] Address: [address] [place] [address] Result Comment: Luzmaria mated Glomerular Filtration Rate [...] Performed By: #### 1 9123-9, KATIE, 2776-05, 41880-6 ####[facility] LABORATORYCLIA [id number] [place] [address] [place] Glucose [Mass/Vol] 148 mg/dL High 74-99 [facility] Comment on above: Order Comment: Shira feldman Type: BLOOD SPECIMENOrdering Facility: [facility] Address: [address] [phone] Result Comment: The [place] [employer] (ADA) provides guidance for cutoff [...] Standards of Medical Care in Diabetes 2016, [place] [employer]. Diabetes Care. 2016.39(Suppl 1). Performed By: #### 1 9123-9, KATIE, 2776-05, 81386-1 ####[facility]ORATORYCLIA [id number] [place] [address] [place] Potassium [Moles/Vol] 4.0 mmol/L Normal 3.7-5.1 [facility] Comment on above: Order Comment: Shira feldman Type: BLOOD SPECIMENOrdering Facility: [facility] Address: [address] [phone] Performed By: #### 1 9123-9, KATIE, 2776-05, 35491-7 ####[facility]ORATORYCLIA [id number] [place] [address] [place] Sodium [Moles/Vol] 143 mmol/L Normal 136-144 [facility] Comment on above: Order Comment: Speci men Type: BLOOD SPECIMENOrdering Facility: [facility] Address: [address] [place] [address] Performed By: #### 1 9123-9, KATIE, 2776-, 18628-4 ####[facility] LABORATORYCLIA [id number] [address] STATES [facility] Urea nitrogen [Mass/Vol] 38 mg/dL High 9-24 [facility] Comment on above: Order Comment: Speci men Type: BLOOD SPECIMENOrdering Facility: [facility] Address: [address] [place] [address] Performed By: #### 1 9123-9, KATIE, 2776-05, 71123-8 ####[facility]ORATORYCLIA [id number] [address] STATES OF [facility] CBC W Auto Differential pane l (Bld)on 07-24-2021 Basophils (Bld) [#/Vol] 0.06 10*3/uL Normal <0.11 [facility] Comment on above: Order Comment: Speci men Type: BLOOD SPECIMENOrdering Facility: [facility] Address: [address] [place] [address] Performed By: #### 5 7021-8 ####[facility] LABORATORYCLIA [id number] [address] [place] Basophils/100 WBC (Bld) 0.6 % Normal [facility] Comment on above: Order Comment: Speci men Type: BLOOD SPECIMENOrdering Facility: [facility] Address: [address] [place] [address] Performed By: #### 5 7021-8 ####[facility]ORATORYCLIA [id number] [address] Differential cell count method Nom (Bld) Auto Normal [facility] Comment on above: Order Comment: Speci men Type: BLOOD SPECIMENOrdering Facility: [facility] Address: [address] [place] [address] Performed By: #### 5 7021-8 ####[facility]ORATORYCLIA [id number] [address] [place] Eosinophils (Bld) [#/Vol] 0.03 10*3/uL Normal <0.46 [facility] Comment on above: Order Comment: Speci men Type: BLOOD SPECIMENOrdering Facility: [facility] Address: [address] [place] [address] Performed By: #### 5 7021-8 ####[facility]ORATORYCLIA [id number] [address] Eosinophils/100 WBC (Bld) 0.3 % Normal [facility] Comment on above: Order Comment: Speci men Type: BLOOD SPECIMENOrdering Facility: [facility] Address: [address] [place] [address] Performed By: #### 5 7021-8 ####[facility]ORATORYCLIA [id number] [address] Erythrocyte distribution width (RBC) [Ratio] 17.0 % High 11.5-15.0 [facility] Comment on above: Order Comment: Speci men Type: BLOOD SPECIMENOrdering Facility: [facility] Address: [address] [place] [address] Performed By: #### 5 7021-8 ####[facility]ORATORYCLIA [id number] [address] [place] Hematocrit (Bld) [Volume fraction] 30.5 % Low 39.0-51.0 [facility] Comment on above: Order Comment: Speci men Type: BLOOD SPECIMENOrdering Facility: [facility] Address: [address] [place] [address] Performed By: #### 5 7021-8 ####[facility] LABORATORYCLIA [id number] [address] [place] Hemoglobin (Bld) [Mass/Vol] 9.0 g/dL Low 13.0-17.0 [facility] Comment on above: Order Comment: Speci men Type: BLOOD SPECIMENOrdering Facility: [facility] Address: [address] [place] [address] Performed By: #### 5 7021-8 ####[facility] LABORATORYCLIA [id number] [address] IMMATURE GRAN % 0.5 % Normal [facility] Comment on above: Order Comment: Speci men Type: BLOOD SPECIMENOrdering Facility: [facility] Address: [address] [place] [address] Performed By: #### 5 7021-8 ####[facility] LABORATORYCLIA [id number] [address] IMMATURE GRAN ABS 0.05 k/uL Normal <0.10 [facility] Comment on above: Order Comment: Speci men Type: BLOOD SPECIMENOrdering Facility: [facility] Address: [address] [place] [address] Performed By: #### 5 7021-8 ####[facility] LABORATORYCLIA [id number] [address] Lymphocytes (Bld) [#/Vol] 1.68 10*3/uL Normal 1.00-4.00 [facility] Comment on above: Order Comment: Speci men Type: BLOOD SPECIMENOrdering Facility: [facility] Address: [address] [place] [address] Performed By: #### 5 7021-8 ####[facility]ORATORYCLIA [id number] [address] Lymphocytes/100 WBC (Bld) 16.2 % Normal [facility] Comment on above: Order Comment: Speci men Type: BLOOD SPECIMENOrdering Facility: [facility] Address: [address] [place] [address] Performed By: #### 5 7021-8 ####[facility]ORATORYCLIA [id number] [address] [place] MCH (RBC) [Entitic mass] 27.4 pg Normal 26.0-34.0 [facility] Comment on above: Order Comment: Speci men Type: BLOOD SPECIMENOrdering Facility: [facility] Address: [address] [place] [address] Performed By: #### 5 7021-8 ####[facility] LABORATORYCLIA [id number] [address] [place] MCHC (RBC) [Mass/Vol] 29.5 g/dL Low 30.5-36.0 [facility] Comment on above: Order Comment: Speci men Type: BLOOD SPECIMENOrdering Facility: [facility] Address: [address] [place] [address] Performed By: #### 5 7021-8 ####[facility] LABORATORYCLIA [id number] [address] [place] MCV (RBC) [Entitic vol] 93.0 fL Normal 80.0-100.0 [facility] Comment on above: Order Comment: Speci men Type: BLOOD SPECIMENOrdering Facility: [facility] Address: [address] [place] [address] Performed By: #### 5 7021-8 ####[facility] LABORATORYCLIA [id number] [address] [place] Monocytes (Bld) [#/Vol] 0.63 10*3/uL Normal <0.87 [facility] Comment on above: Order Comment: Speci men Type: BLOOD SPECIMENOrdering Facility: [facility] Address: [address] [place] [address] Performed By: #### 5 7021-8 ####[facility]ORATORYCLIA [id number] [address] Monocytes/100 WBC (Bld) 6.1 % Normal [facility] Comment on above: Order Comment: Speci men Type: BLOOD SPECIMENOrdering Facility: [facility] Address: [address] [place] [address] Performed By: #### 5 7021-8 ####[facility]ORATORYCLIA [id number] [address] [place] Neutrophils (Bld) [#/Vol] 7.91 10*3/uL High 1.45-7.50 [facility] Comment on above: Order Comment: Speci men Type: BLOOD SPECIMENOrdering Facility: [facility] Address: [address] [address] Performed By: #### 5 7021-8 ####[facility] LABORATORYCLIA [id number] [address] [place] Neutrophils/100 WBC (Bld) 76.3 % Normal [facility] Comment on above: Order Comment: Speci men Type: BLOOD SPECIMENOrdering Facility: [facility] Address: [facility] [address] Performed By: #### 5 7021-8 ####[facility] LABORATORYCLIA [id number] [address] [place] Nucleated RBC (Bld) [#/Vol] 10*3/uL Normal <0.01 [facility] Comment on above: Order Comment: Speci men Type: BLOOD SPECIMENOrdering Facility: [facility] Address: [address] [place] [address] Performed By: #### 5 7021-8 ####[facility] LABORATORYCLIA [id number] [address] [place] Nucleated RBC/100 WBC (Bld) [Ratio] 0.0 /100 WBC Normal [facility] Comment on above: Order Comment: Speci men Type: BLOOD SPECIMENOrdering Facility: [facility] Address: [address] [address] Performed By: #### 5 7021-8 ####[facility] LABORATORYCLIA [id number] [address] [place] Platelet mean volume (Bld) [Entitic vol] 11.1 fL Normal 9.0-12.7 [facility] Comment on above: Order Comment: Speci men Type: BLOOD SPECIMENOrdering Facility: [facility] Address: [address] [place], [place] [address] Performed By: #### 5 7021-8 ####[facility] LABORATORYCLIA [id number] [address] Platelets (Bld) [#/Vol] 285 10*3/uL Normal 150-400 [facility] Comment on above: Order Comment: Speci men Type: BLOOD SPECIMENOrdering Facility: [facility] Address: [address] [place] [address] Performed By: #### 5 7021-8 ####[facility] LABORATORYCLIA [id number] [address] OF [facility] RBC (Bld) [#/Vol] 3.28 10*6/uL Low 4.20-6.00 [facility] Comment on above: Order Comment: Speci men Type: BLOOD SPECIMENOrdering Facility: [facility] Address: [address] [place] [address] Performed By: #### 5 7021-8 ####[facility] LABORATORYCLIA [id number] [address] OF [facility] WBC (Bld) [#/Vol] 10.36 10*3/uL Normal 3.70-11.00 [facility] Comment on above: Order Comment: Speci men Type: BLOOD SPECIMENOrdering Facility: [facility] Address: [address] [place] [address] Performed By: #### 5 7021-8 ####[facility] LABORATORYCLIA [id number] [address] Legionella Ag Ur Qlon 2021 Legionella sp Ag Ql (U) Negative Normal Negative [facility] Comment on above: Order Comment: Speci men Type: URINE SPECIMENOrdering Facility: [facility] Address: [address] [place] [address] Performed By: #### 3 2781-7 ####[facility] LABORATORYCLIA [id number] [address] [place] Magnesium SerPl-mCncon 07-24 Magnesium [Mass/Vol] 2.3 mg/dL Normal 1.7-2.3 [facility] Comment on above: Order Comment: Speci men Type: BLOOD SPECIMENOrdering Facility: [facility] Address: [address] [place] [address] Performed By: #### 1 9123-9, PROCCARLITOS, 2776-1, 13325-4 ####[facility] LABORATORYCLIA [id number] [address] [place] NURSING PROGon 07-24-2021 NURSING PROG Normal [facility] PROCALCITONIN (LAB)on 2021 Procalcitonin [Mass/Vol] 0.15 ng/mL High <0.09 [facility] Comment on above: Order Comment: Speci men Type: BLOOD SPECIMENOrdering Facility: [facility] Address: [address] [place] [address] Result Comment: For a guided interpretation of test results, please visit the Change in Procalcitonin Calculator, [email or web address]. Performed By: #### 1 9123-9, KATIE, 2776-05, 61982-0 ####[facility] LABORATORYCLIA [id number] [address] [place] Phosphate SerPl-mCncon 07-24 Phosphate [Mass/Vol] 3.9 mg/dL Normal 2.7-4.8 [facility] Comment on above: Order Comment: Speci men Type: BLOOD SPECIMENOrdering Facility: [facility] Address: [address] [place] [address] Performed By: #### 1 9123-9, PROCAL, 2776-1, 46858-2 ####[facility] LABORATORYCLIA [id number] [address] [place] STREPTOCOCCUS PNEUMONIAE AGo n 07-24-2021 STREPTOCOCCUS PNEUMONIAE AG Normal [facility] Comment on above: Performed By: #### S PNAG ####[facility] LABORATORYCLIA [id number] [address] aPTT PPPon 07-24-2021 aPTT Coag (PPP) [Time] 60.8 s High 23.0-32.4 [facility] Comment on above: Order Comment: Speci men Type: BLOOD SPECIMENOrdering Facility: [facility] Address: [address] [place] [address] Performed By: #### 1 4979-9 ####[facility] LABORATORYCLIA [id number] [address] aPTT Coag (PPP) [Time] 38.2 s High 23.0-32.4 [facility] Comment on above: Order Comment: Speci men Type: BLOOD SPECIMENOrdering Facility: [facility] Address: [address] [place] [address] Performed By: #### 1 4979-9 ####[facility] LABORATORYCLIA [id number] [address] aPTT Coag (PPP) [Time] 35.9 s High 23.0-32.4 [facility] Comment on above: Order Comment: Speci men Type: BLOOD SPECIMENOrdering Facility: [facility] Address: [address] [place] [address] Performed By: #### 1 4979-9 ####[facility] LABORATORYCLIA [id number] [address] aPTT Coag (PPP) [Time] 28.8 s Normal 23.0-32.4 [facility] Comment on above: Order Comment: Speci men Type: BLOOD SPECIMENOrdering Facility: [facility] Address: [address] [place] [address] Performed By: #### 1 4979-9 ####[facility] LABORATORYCLIA [id number] [address] OF [facility] ALLIED HEALTHon 07-23-2021 ALLIED HEALTH Normal [facility] ALLIED HEALTH Normal [facility] ALLIED HEALTH Normal [facility] ARTERIAL BLOOD GASESon 07-23 Base excess Calc (Bld) [Moles/Vol] 4 mmol/L High 0-2 [facility] Comment on above: Order Comment: Speci men Type: ARTERIAL BLOOD SPECIMENOrdering Facility: [facility] Address: [address] [place] [address] Performed By: #### A LLBG ####[facility] LABORATORYCLIA [id number] [address] [facility] Body temperature 100.58 [degF] Normal [facility] Comment on above: Order Comment: Speci men Type: ARTERIAL BLOOD SPECIMENOrdering Facility: [facility] Address: [address] [place] [address] Performed By: #### A LLBG ####[facility] LABORATORYCLIA [id number] [address] [place] CALCIUM IONIZED, PH CORRECTED 1.26 mmol/L Normal 1.08-1.30 [facility] Comment on above: Order Comment: Speci men Type: ARTERIAL BLOOD SPECIMENOrdering Facility: [facility] Address: [address] [place] [address] Performed By: #### A LLBG ####[facility]ORATORYCLIA [id number] [address] [place] Calcium.ionized (BldV) [Mass/Vol] 1.25 mmol/L Normal 1.08-1.30 [facility] Comment on above: Order Comment: Speci men Type: ARTERIAL BLOOD SPECIMENOrdering Facility: [facility] Address: [address] [place] [address] Performed By: #### A LLBG ####[facility]ORATORYCLIA [id number] [address] [place] Carboxyhemoglobin (BldA) [Mass fraction] 1.2 % Normal 0.0-2.0 [facility] Comment on above: Order Comment: Speci men Type: ARTERIAL BLOOD SPECIMENOrdering Facility: [facility] Address: [address] [place] [address] Result Comment: Carb oxyhemoglobin Reference Range for Smokers: 2.0-8.0% Performed By: #### A LLBG ####[facility]ATORYCLIA [id number] [address] [place] CO2 (Bld) [Partial pressure] 46 mm Hg Normal 36-46 [facility] Comment on above: Order Comment: Speci men Type: ARTERIAL BLOOD SPECIMENOrdering Facility: [facility] Address: [address] [place] [address] Performed By: #### A LLBG ####[facility]ORATORYCLIA [id number] [address] [place] CO2 [Moles/Vol] 27 mmol/L Normal 22-28 [facility] Comment on above: Order Comment: Speci men Type: ARTERIAL BLOOD SPECIMENOrdering Facility: [facility] Address: [address] [place] [address] Performed By: #### A LLBG ####[facility] LABORATORYCLIA [id number] [address] [place] CO2 adjusted to patient's actual temperature (Bld) [Partial pressure] 48 mmHg High 36-46 [facility] Comment on above: Order Comment: Speci men Type: ARTERIAL BLOOD SPECIMENOrdering Facility: [facility] Address: [address] [place] [address] Performed By: #### A LLBG ####[facility]ORATORYCLIA [id number] [place] [address] [place] Glucose [Mass/Vol] 134 mg/dL High 60-105 [facility] Comment on above: Order Comment: Speci men Type: ARTERIAL BLOOD SPECIMENOrdering Facility: [facility] Address: [address] [place] [address] Performed By: #### A LLBG ####[facility] LABORATORYCLIA [id number] [place] [address] [place] HCO3 (Bld) [Moles/Vol] 29 mmol/L High 22-26 [facility] Comment on above: Order Comment: Speci men Type: ARTERIAL BLOOD SPECIMENOrdering Facility: [facility] Address: [address] [address] Performed By: #### A LLBG ####[facility]ORATORYCLIA [id number] [address] Hematocrit (Bld) [Volume fraction] 31.4 % Low 39.0-51.0 [facility] Comment on above: Order Comment: Speci men Type: ARTERIAL BLOOD SPECIMENOrdering Facility: [facility] Address: [address] [address] Performed By: #### A LLBG ####[facility]ORATORYCLIA [id number] [address] Hemoglobin (Bld) [Mass/Vol] 10.2 g/dL Low 13.0-17.0 [facility] Comment on above: Order Comment: Speci men Type: ARTERIAL BLOOD SPECIMENOrdering Facility: [facility] Address: [address] [place] [address] Performed By: #### A LLBG ####[facility] LABORATORYCLIA [id number] [address] [place] Methemoglobin (Bld) [Mass fraction] % Normal 0.0-1.5 [facility] Comment on above: Order Comment: Speci men Type: ARTERIAL BLOOD SPECIMENOrdering Facility: [facility] Address: [address] [place] [address] Performed By: #### A LLBG ####[facility]ORATORYCLIA [id number] [address] [place] O2 THERAPY Ventilator Normal [facility] Comment on above: Order Comment: Speci men Type: ARTERIAL BLOOD SPECIMENOrdering Facility: [facility] Address: [address] [place] [address] Performed By: #### A LLBG ####[facility]ORATORYCLIA [id number] [address] [place] Oxygen (Bld) [Partial pressure] 113 mm Hg High 85-95 [facility] Comment on above: Order Comment: Speci men Type: ARTERIAL BLOOD SPECIMENOrdering Facility: [facility] Address: [address] [place] [address] Performed By: #### A LLBG ####[facility]ORATORYCLIA [id number] [address] [place] Oxygen adjusted to patient's actual temperature (Bld) [Partial pressure] 119 mmHg High 85-95 [facility] Comment on above: Order Comment: Speci men Type: ARTERIAL BLOOD SPECIMENOrdering Facility: [facility] Address: [address] [place] [address] Performed By: #### A LLBG ####[facility] LABORATORYCLIA [id number] [address] OXYGEN SATURATION, ARTERIAL 98 % Normal 95-98 [facility] Comment on above: Order Comment: Speci men Type: ARTERIAL BLOOD SPECIMENOrdering Facility: [facility] Address: [address] [place] [address] Performed By: #### A LLBG ####[facility]ORATORYCLIA [id number] [address] Oxyhemoglobin (BldA) [Mass fraction] 96 % Normal 95-98 [facility] Comment on above: Order Comment: Speci men Type: ARTERIAL BLOOD SPECIMENOrdering Facility: [facility] Address: [address] [place] [address] Performed By: #### A LLBG ####[facility] LABORATORYCLIA [id number] [address] [place] pH (Bld) 7.41 [pH] Normal 7.35-7.45 [facility] Comment on above: Order Comment: Speci men Type: ARTERIAL BLOOD SPECIMENOrdering Facility: [facility] Address: [address] [place] [address] Performed By: #### A LLBG ####[facility]ORATORYCLIA [id number] [address] [place] pH adjusted to patient's actual temperature (Bld) 7.40 Normal 7.35-7.45 [facility] Comment on above: Order Comment: Speci men Type: ARTERIAL BLOOD SPECIMENOrdering Facility: [facility] Address: [address] [place] [address] Performed By: #### A LLBG ####[facility]ORATORYCLIA [id number] [address] [place] [facility] Potassium [Moles/Vol] 4.3 mmol/L Normal 3.5-5.0 [facility] Comment on above: Order Comment: Speci men Type: ARTERIAL BLOOD SPECIMENOrdering Facility: [facility] Address: [address] [place] [address] Performed By: #### A LLBG ####[facility]ORATORYCLIA [id number] [address] STATES OF [facility] Sodium [Moles/Vol] 144 mmol/L Normal 136-144 [facility] Comment on above: Order Comment: Speci men Type: ARTERIAL BLOOD SPECIMENOrdering Facility: [facility] Address: [address] [place] [address] Performed By: #### A LLBG ####[facility]ORATORYCLIA [id number] [address] [place] Bacteria CSF Culton 07-24-19 22 Bacteria identified Cx Nom (CSF) Abnormal [facility] Comment on above: Performed By: #### 6 06-4 ####[facility]ORATORYCLIA [id number] [address] [place] Basic metabolic 2000 panelon 07-23-2021 Anion gap [Moles/Vol] 12 mmol/L Normal 9-18 [facility] Comment on above: Order Comment: Speci men Type: BLOOD SPECIMENOrdering Facility: [facility] Address: [address] [place] [address] Performed By: #### 2 4321-2 ####[facility]ORATORYCLIA [id number] [address] [place] Calcium [Mass/Vol] 9.7 mg/dL Normal 8.5-10.2 [facility] Comment on above: Order Comment: Speci men Type: BLOOD SPECIMENOrdering Facility: [facility] Address: [address] [place] [address] Performed By: #### 2 4321-2 ####[facility]ORATORYCLIA [id number] [place] [address] [place] Chloride [Moles/Vol] 105 mmol/L Normal 97-105 [facility] Comment on above: Order Comment: Speci men Type: BLOOD SPECIMENOrdering Facility: [facility] Address: [address] [place] [address] Performed By: #### 2 4321-2 ####[facility]ORATORYCLIA [id number] [place] [address] [place] CO2 [Moles/Vol] 28 mmol/L Normal 22-30 [facility] Comment on above: Order Comment: Speci men Type: BLOOD SPECIMENOrdering Facility: [facility] Address: [address] [place] [address] Performed By: #### 2 4321-2 ####[facility]ORATORYCLIA [id number] [address] [place] Creatinine [Mass/Vol] 0.78 mg/dL Normal 0.73-1.22 [facility] Comment on above: Order Comment: Speci men Type: BLOOD SPECIMENOrdering Facility: [facility] Address: [address] [place] [address] Performed By: #### 2 4321-2 ####[facility]ORATORYCLIA [id number] [address] [place] ESTIMATED GLOMERULAR FILTRATION RATE 97 mL/min/1.73m??? Normal >=60 [facility] Comment on above: Order Comment: Speci men Type: BLOOD SPECIMENOrdering Facility: [facility] Address: [address] [place] [address] Result Comment: Luzmaria mated Glomerular Filtration Rate [...] By: #### 2 4321-2 ####[facility]ORATORYCLIA [id number] [place] [address] [place] Glucose [Mass/Vol] 127 mg/dL High 74-99 [facility] Comment on above: Order Comment: Speci men Type: BLOOD SPECIMENOrdering Facility: [facility] Address: [address] [place] [address] Result Comment: The [place] [employer] (ADA) provides guidance for cutoff [...] Standards of Medical Care in Diabetes 2016, [place] [employer]. Diabetes Care. 2016.39(Suppl 1). Performed By: #### 2 4321-2 ####[facility]ORATORYCLIA [id number] [place] [address] [place] Potassium [Moles/Vol] 4.3 mmol/L Normal 3.7-5.1 [facility] Comment on above: Order Comment: Speci men Type: BLOOD SPECIMENOrdering Facility: [facility] Address: [address] [place], [place] [address] Performed By: #### 2 4321-2 ####[facility] LABORATORYCLIA [id number] [address] [id number] [place] Sodium [Moles/Vol] 145 mmol/L High 136-144 [facility] Comment on above: Order Comment: Speci men Type: BLOOD SPECIMENOrdering Facility: [facility] Address: [address] [place] [address] Performed By: #### 2 4321-2 ####[facility]ORATORYCLIA [id number] [address] [place] [facility] Urea nitrogen [Mass/Vol] 37 mg/dL High 9-24 [facility] Comment on above: Order Comment: Speci men Type: BLOOD SPECIMENOrdering Facility: [facility] Address: [address] [place] [address] Performed By: #### 2 4321-2 ####[facility]ORATORYCLIA [id number] [address] C diff Tox gens Stl Ql MEGAN+p robeon 07-23-2021 C. difficile toxin genes MEGAN+probe Ql (Stl) Negative Normal Negative for C. difficile toxin by PCR [facility] Comment on above: Order Comment: Speci men Type: STOOL SPECIMENOrdering Facility: [facility] Address: [address] [place] [address] Performed By: #### 5 4067-4 ####[facility]ORATORYCLIA [id number] [address] [place] CBC W Auto Differential pane l (Bld)on 07-23-2021 Basophils (Bld) [#/Vol] 0.07 10*3/uL Normal <0.11 [facility] Comment on above: Order Comment: Speci men Type: BLOOD SPECIMENOrdering Facility: [facility] Address: [address] [place] [address] Performed By: #### 5 7021-8 ####[facility]ORATORYCLIA [id number] [address] Basophils/100 WBC (Bld) 0.5 % Normal [facility] Comment on above: Order Comment: Speci men Type: BLOOD SPECIMENOrdering Facility: [facility] Address: [address] [place] [address] Performed By: #### 5 7021-8 ####[facility]ORATORYCLIA [id number] [address] Differential cell count method Nom (Bld) Auto Normal [facility] Comment on above: Order Comment: Speci men Type: BLOOD SPECIMENOrdering Facility: [facility] Address: [address] [place] [address] Performed By: #### 5 7021-8 ####[facility]ORATORYCLIA [id number] [address] Eosinophils (Bld) [#/Vol] 10*3/uL Normal <0.46 [facility] Comment on above: Order Comment: Speci men Type: BLOOD SPECIMENOrdering Facility: [facility] Address: [address] [place] [address] Performed By: #### 5 7021-8 ####[facility]ORATORYCLIA [id number] [address] Eosinophils/100 WBC (Bld) 0.2 % Normal [facility] Comment on above: Order Comment: Speci men Type: BLOOD SPECIMENOrdering Facility: [facility] Address: [address] [place] [address] Performed By: #### 5 7021-8 ####[facility] LABORATORYCLIA [id number] [address] [place] Erythrocyte distribution width (RBC) [Ratio] 16.7 % High 11.5-15.0 [facility] Comment on above: Order Comment: Speci men Type: BLOOD SPECIMENOrdering Facility: [facility] Address: [address] [place] [address] Performed By: #### 5 7021-8 ####[facility] LABORATORYCLIA [id number] [address] Hematocrit (Bld) [Volume fraction] 32.8 % Low 39.0-51.0 [facility] Comment on above: Order Comment: Speci men Type: BLOOD SPECIMENOrdering Facility: [facility] Address: [address] [address] Performed By: #### 5 7021-8 ####[facility]ATORYCLIA [id number] [address] [place] Hemoglobin (Bld) [Mass/Vol] 9.7 g/dL Low 13.0-17.0 [facility] Comment on above: Order Comment: Speci men Type: BLOOD SPECIMENOrdering Facility: [facility] Address: [address] [place] [address] Performed By: #### 5 7021-8 ####[facility]ORATORYCLIA [id number] [address] IMMATURE GRAN % 0.7 % Normal [facility] Comment on above: Order Comment: Speci men Type: BLOOD SPECIMENOrdering Facility: [facility] Address: [address] [place] [address] Performed By: #### 5 7021-8 ####[facility]ORATORYCLIA [id number] [address] IMMATURE GRAN ABS 0.09 k/uL Normal <0.10 [facility] Comment on above: Order Comment: Speci men Type: BLOOD SPECIMENOrdering Facility: [facility] Address: [address] [place] [address] Performed By: #### 5 7021-8 ####[facility]ORATORYCLIA [id number] [address] [place] Lymphocytes (Bld) [#/Vol] 1.94 10*3/uL Normal 1.00-4.00 [facility] Comment on above: Order Comment: Speci men Type: BLOOD SPECIMENOrdering Facility: [facility] Address: [address] [place] [address] Performed By: #### 5 7021-8 ####[facility]ATORYCLIA [id number] [address] [place] Lymphocytes/100 WBC (Bld) 14.6 % Normal [facility] Comment on above: Order Comment: Speci men Type: BLOOD SPECIMENOrdering Facility: [facility] Address: [address] [place] [address] Performed By: #### 5 7021-8 ####[facility]ORATORYCLIA [id number] [address] MCH (RBC) [Entitic mass] 27.2 pg Normal 26.0-34.0 [facility] Comment on above: Order Comment: Speci men Type: BLOOD SPECIMENOrdering Facility: [facility] Address: [address] [place] [address] Performed By: #### 5 7021-8 ####[facility]ORATORYCLIA [id number] [address] MCHC (RBC) [Mass/Vol] 29.6 g/dL Low 30.5-36.0 [facility] Comment on above: Order Comment: Speci men Type: BLOOD SPECIMENOrdering Facility: [facility] Address: [address] [place] [address] Performed By: #### 5 7021-8 ####[facility]ORATORYCLIA [id number] [address] MCV (RBC) [Entitic vol] 92.1 fL Normal 80.0-100.0 [facility] Comment on above: Order Comment: Speci men Type: BLOOD SPECIMENOrdering Facility: [facility] Address: [address] [place] [address] Performed By: #### 5 7021-8 ####[facility]ORATORYCLIA [id number] [address] Monocytes (Bld) [#/Vol] 0.74 10*3/uL Normal <0.87 [facility] Comment on above: Order Comment: Speci men Type: BLOOD SPECIMENOrdering Facility: [facility] Address: [address] [place] [address] Performed By: #### 5 7021-8 ####[facility]ORATORYCLIA [id number] [address] [place] Monocytes/100 WBC (Bld) 5.6 % Normal [facility] Comment on above: Order Comment: Speci men Type: BLOOD SPECIMENOrdering Facility: [facility] Address: [address] [place] [address] Performed By: #### 5 7021-8 ####[facility]ORATORYCLIA [id number] [place] [address] [place] Neutrophils (Bld) [#/Vol] 10.43 10*3/uL High 1.45-7.50 [facility] Comment on above: Order Comment: Speci men Type: BLOOD SPECIMENOrdering Facility: [facility] Address: [address] [place] [address] Performed By: #### 5 7021-8 ####[facility]ORATORYCLIA [id number] [address] [place] Neutrophils/100 WBC (Bld) 78.4 % Normal [facility] Comment on above: Order Comment: Speci men Type: BLOOD SPECIMENOrdering Facility: [facility] Address: [address] [place] [address] Performed By: #### 5 7021-8 ####[facility] LABORATORYCLIA [id number] [place] [address] [place] Nucleated RBC (Bld) [#/Vol] 10*3/uL Normal <0.01 [facility] Comment on above: Order Comment: Speci men Type: BLOOD SPECIMENOrdering Facility: [facility] Address: [address] [place] [address] Performed By: #### 5 7021-8 ####[facility]ORYCLIA [id number] [address] [place] Nucleated RBC/100 WBC (Bld) [Ratio] 0.0 /100 WBC Normal [facility] Comment on above: Order Comment: Speci men Type: BLOOD SPECIMENOrdering Facility: [facility] Address: [address] [place] [address] Performed By: #### 5 7021-8 ####[facility] LABORATORYCLIA [id number] [address] [place] Platelet mean volume (Bld) [Entitic vol] 11.0 fL Normal 9.0-12.7 [facility] Comment on above: Order Comment: Speci men Type: BLOOD SPECIMENOrdering Facility: [facility] Address: [address] [place] [address] Performed By: #### 5 7021-8 ####[facility] LABORATORYCLIA [id number] [address] [place] Platelets (Bld) [#/Vol] 381 10*3/uL Normal 150-400 [facility] Comment on above: Order Comment: Speci men Type: BLOOD SPECIMENOrdering Facility: [facility] Address: [address] [place] [address] Performed By: #### 5 7021-8 ####[facility] LABORATORYCLIA [id number] [address] [place] RBC (Bld) [#/Vol] 3.56 10*6/uL Low 4.20-6.00 [facility] Comment on above: Order Comment: Speci men Type: BLOOD SPECIMENOrdering Facility: [facility] Address: [address] [place] [address] Performed By: #### 5 7021-8 ####[facility] LABORATORYCLIA [id number] [place] [address] [place] WBC (Bld) [#/Vol] 13.29 10*3/uL High 3.70-11.00 [facility] Comment on above: Order Comment: Speci men Type: BLOOD SPECIMENOrdering Facility: [facility] Address: [address] [place], [place] [address] Performed By: #### 5 7021-8 ####[facility] LABORATORYCLIA [id number] [address] CONSULT PROGon 07-23-2021 CONSULT PROG Normal [facility] CONSULT PROG Normal [facility] CSF MANUAL DIFFon 07-23-2021 DIF TTL, CSF 100 cells counted Normal [facility] Comment on above: Order Comment: Speci men Type: CEREBROSPINAL FLUIDOrdering Facility: [facility] Address: [address] [place] [address] Performed By: #### L [id number], [id number], 63212-5 ####[facility] LABORATORYCLIA [id number] [place] [address] [place] LYMPH%, CSF 2 % Low 50-90 [facility] Comment on above: Order Comment: Speci men Type: CEREBROSPINAL FLUIDOrdering Facility: [facility] Address: [address] [place] [address] Performed By: #### L [id number], [id number], 54774-5 ####[facility] LABORATORYCLIA [id number] [place] [address] [place] MONO%, CSF 9 % Low 10-50 [facility] Comment on above: Order Comment: Speci men Type: CEREBROSPINAL FLUIDOrdering Facility: [facility] Address: [address] [place] [address] Performed By: #### L [id number], [id number], [id number] ####[facility] LABORATORYCLIA [id number] [place] [address] [place]%, CSF 89 % High 0-3 [facility] Comment on above: Order Comment: Speci men Type: CEREBROSPINAL FLUIDOrdering Facility: [facility] Address: [address] [place] [address] Performed By: #### L [id number], [id number], [id number] ####[facility] LABORATORYCLIA [id number] [address] [place] PATHOLOGIST INTERP (LAB REFLEX ORDER-NO BILL)on 07-23-2021 CSF STAFF REVIEW Negative for maligna nt cells. Numerous bacterial organisms present, cocci in pairs and chains. Recommend correlation with CSF culture results. Normal [facility] Comment on above: Order Comment: Speci men Type: CEREBROSPINAL FLUIDOrdering Facility: [facility] Address: [address] [place] [address] Performed By: #### L [id number], [id number], 42443-9 ####[facility] LABORATORYCLIA [id number] [address] Pathologist name Reviewed by Amador Stevens MD Normal [facility] Comment on above: Order Comment: Speci men Type: CEREBROSPINAL FLUIDOrdering Facility: [facility] Address: [address] [place] [address] Performed By: #### L [id number], [id number], 69938-2 ####[facility] LABORATORYCLIA [id number] [address] OF [facility] CT BRAIN WO IVCONon 07-24-19 CT BRAIN WO IVCON Normal [facility] Cell count panel (CSF)on Clarity (CSF) Clear Normal Clear [facility] Comment on above: Order Comment: Speci men Type: CEREBROSPINAL FLUIDOrdering Facility: [facility] Address: [address] [place] [address] Performed By: #### L [id number], [id number], 57205-5 ####[facility] LABORATORYCLIA [id number] [address] Clarity (Unsp spec) Not Indicated Normal Clear [facility] Comment on above: Order Comment: Speci men Type: CEREBROSPINAL FLUIDOrdering Facility: [facility] Address: [address] [place] [address] Performed By: #### L [id number], [id number], 40044-6 ####[facility] LABORATORYCLIA [id number] [address] Color (CSF) Colorless Normal Colorless [facility] Comment on above: Order Comment: Speci men Type: CEREBROSPINAL FLUIDOrdering Facility: [facility] Address: [address] [place] [address] Performed By: #### L [id number], [id number], 75332-3 ####[facility] LABORATORYCLIA [id number] [address] Color (Spun CSF) Not Indicated Normal Colorless [facility] Comment on above: Order Comment: Speci men Type: CEREBROSPINAL FLUIDOrdering Facility: [facility] Address: [address] [place] [address] Performed By: #### L [id number], [id number], 52079-4 ####[facility] LABORATORYCLIA [id number] [address] CSF TUBE [employer] Normal [facility] Comment on above: Order Comment: Speci men Type: CEREBROSPINAL FLUIDOrdering Facility: [facility] Address: [address] [place] [address] Performed By: #### L [id number], [id number], 05579-9 ####[facility] LABORATORYCLIA [id number] [address] RBC Manual cnt (CSF) [#/Vol] 7 cells/uL High 0-5 [facility] Comment on above: Order Comment: Speci men Type: CEREBROSPINAL FLUIDOrdering Facility: [facility] Address: [address] [place] [address] Performed By: #### L [id number], [id number], 12477-6 ####[facility] LABORATORYCLIA [id number] [address] WBC Manual cnt (CSF) [#/Vol] 193 cells/uL High 0-5 [facility] Comment on above: Order Comment: Speci men Type: CEREBROSPINAL FLUIDOrdering Facility: [facility] Address: [address] [place] [address] Performed By: #### L [id number], [id number], 60710-7 ####[facility] LABORATORYCLIA [id number] [address] [place] Glucose CSF-mCncon 2 Glucose (CSF) [Mass/Vol] 81 mg/dL High 40-70 [facility] Comment on above: Order Comment: Speci men Type: CEREBROSPINAL FLUIDOrdering Facility: [facility] Address: [address] [place] [address] Result Comment: Lumb ar CSF glucose values of healthy patients are approximately 60% of the plasma values and must always be compared with a concurrently measured plasma value for adequate clinical interpretation.References: 1. Glucose HK (GLUC3) [package insert V 12.0 Armenian]. [employer], [place], [place]. September 2015. 2. Michelle Moore, Loki HGarfield (2015). Chapter 7: Glucose and Lactate. Marianela Alcocer al.(eds.), Cerebrospinal Fluid in Clinical Neurology. Miner: Hubub. Performed By: #### 2 342-4, 2880-3 ####[facility] LABORATORYCLIA [id number] [address] [place] NURSING PROGon 07-23-2021 NURSING PROG Normal [facility] NURSING PROG Normal [facility] Prot CSF-mCncon 07-23-2021 Protein (CSF) [Mass/Vol] 68 mg/dL High 15-45 [facility] Comment on above: Order Comment: Speci men Type: CEREBROSPINAL FLUIDOrdering Facility: [facility] Address: [address] [place] [address] Performed By: #### 2 342-4, 2880-3 ####[facility] LABORATORYCLIA [id number] [address] [place] Urinalysis complete panel (U )on 07-23-2021 Bilirubin Ql (U) Negative Normal Negative [facility] Comment on above: Order Comment: Speci men Type: URINE SPECIMENOrdering Facility: [facility] Address: [address] [place] [address] Performed By: #### 2 4356-8 ####[facility] LABORATORYCLIA [id number] [address] [place] Clarity (Unsp spec) Clear Normal Clear [facility] Comment on above: Order Comment: Speci men Type: URINE SPECIMENOrdering Facility: [facility] Address: [address] [address] Performed By: #### 2 4356-8 ####[facility]ORATORYCLIA [id number] [address] [place] Color (U) Light Yellow Normal yellow [facility] Comment on above: Order Comment: Speci men Type: URINE SPECIMENOrdering Facility: [facility] Address: [address] [address] Performed By: #### 2 4356-8 ####[facility] LABORATORYCLIA [id number] [address] Glucose Test strip (U) [Mass/Vol] Negative Normal Negative [facility] Comment on above: Order Comment: Speci men Type: URINE SPECIMENOrdering Facility: [facility] Address: [address] [place] [address] Performed By: #### 2 4356-8 ####[facility] LABORATORYCLIA [id number] [address] [place] Hemoglobin Ql (U) Negative Normal Negative [facility] Comment on above: Order Comment: Speci men Type: URINE SPECIMENOrdering Facility: [facility] Address: [address] [place] [address] Performed By: #### 2 4356-8 ####[facility] LABORATORYCLIA [id number] [address] [place] Ketones Ql (U) Negative Normal Negative [facility] Comment on above: Order Comment: Speci men Type: URINE SPECIMENOrdering Facility: [facility] Address: [address] [address] Performed By: #### 2 4356-8 ####[facility] LABORATORYCLIA [id number] [address] [place] Leukocyte esterase Test strip Ql (U) Negative Normal Negative [facility] Comment on above: Order Comment: Speci men Type: URINE SPECIMENOrdering Facility: [facility] Address: [address] [place] [address] Performed By: #### 2 4356-8 ####[facility] LABORATORYCLIA [id number] [address] STATES [facility] Nitrite Ql (U) Negative Normal Negative [facility] Comment on above: Order Comment: Speci men Type: URINE SPECIMENOrdering Facility: [facility] Address: [address] [place] [address] Performed By: #### 2 4356-8 ####[facility] LABORATORYCLIA [id number] [address] [place] pH (U) 6.0 [pH] Normal 5.0-8.0 [facility] Comment on above: Order Comment: Speci men Type: URINE SPECIMENOrdering Facility: [facility] Address: [address] [place] [address] Performed By: #### 2 4356-8 ####[facility]ITALCLIA [id number] [address] Protein (U) [Mass/Vol] 1+ Abnormal Negative [facility] Comment on above: Order Comment: Speci men Type: URINE SPECIMENOrdering Facility: [facility] Address: [address] [place] [address] Performed By: #### 2 4356-8 ####[facility] LABORATORYCLIA [id number] [address] RBC LM.HPF (Urine sed) [#/Area] 0-3 /HPF Normal 0-3 /HPF [facility] Comment on above: Order Comment: Speci men Type: URINE SPECIMENOrdering Facility: [facility] Address: [address] [place] [address] Performed By: #### 2 4356-8 ####[facility] LABORATORYCLIA [id number] [address] Specific gravity (U) [Rel density] 1.018 Normal 1.005-1.030 [facility] Comment on above: Order Comment: Speci men Type: URINE SPECIMENOrdering Facility: [facility] Address: [address] [place] [address] Performed By: #### 2 4356-8 ####[facility] LABORATORYCLIA [id number] [address] [place] Urobilinogen Ql (U) Normal Normal Negative [facility] Comment on above: Order Comment: Speci men Type: URINE SPECIMENOrdering Facility: [facility] Address: [address] [place] [address] Performed By: #### 2 4356-8 ####[facility] LABORATORYCLIA [id number] [address] STATES [facility] WBC LM.HPF (Urine sed) [#/Area] 0-5 /HPF Normal 0-5 /HPF [facility] Comment on above: Order Comment: Speci men Type: URINE SPECIMENOrdering Facility: [facility] Address: [address] [place] [address] Performed By: #### 2 4356-8 ####[facility] LABORATORYCLIA [id number] [address] [place] Vancomycin random [Mass/Vol] on 07-23-2021 Vancomycin [Mass/Vol] 12.9 ug/mL Normal 10.0-20.0 [facility] Comment on above: Order Comment: Speci men Type: BLOOD SPECIMENOrdering Facility: [facility] Address: [address] [place] [address] Result Comment: Refe rence ranges and high/low indicator flags are provided as general guidelines only. The treating physician must determine appropriate target levels/dosing based on the specific clinical situation. Performed By: #### 4 091-5 ####[facility] LABORATORYCLIA [id number] [address] [place] XR CHEST 1V FRONTALon 2021 XR CHEST 1V FRONTAL Normal [facility] XR CHEST 1V FRONTAL Normal [facility] aPTT PPPon 07-23-2021 aPTT Coag (PPP) [Time] 32.3 s Normal 23.0-32.4 [facility] Comment on above: Order Comment: Speci men Type: BLOOD SPECIMENOrdering Facility: [facility] Address: [address] [place] [address] Performed By: #### 1 4979-9 ####[facility] LABORATORYCLIA [id number] [address] aPTT Coag (PPP) [Time] 57.9 s High 23.0-32.4 [facility] Comment on above: Order Comment: Speci men Type: BLOOD SPECIMENOrdering Facility: [facility] Address: [address] [place] [address] Performed By: #### 1 4979-9 ####[facility] LABORATORYCLIA [id number] [address] aPTT Coag (PPP) [Time] 46.3 s High 23.0-32.4 [facility] Comment on above: Order Comment: Speci men Type: BLOOD SPECIMENOrdering Facility: [facility] Address: [address] [place] [address] Performed By: #### 1 4979-9 ####[facility] LABORATORYCLIA [id number] [place] [address] [place] Basic metabolic 2000 panelon 07-22-2021 Anion gap [Moles/Vol] 8 mmol/L Low 9-18 [facility] Comment on above: Order Comment: Speci men Type: BLOOD SPECIMENOrdering Facility: [facility] Address: [address] [place] [address] Performed By: #### 2 4321-2 ####[facility] LABORATORYCLIA [id number] [address] STATES OF [facility] Calcium [Mass/Vol] 9.5 mg/dL Normal 8.5-10.2 [facility] Comment on above: Order Comment: Speci men Type: BLOOD SPECIMENOrdering Facility: [facility] Address: [address] [place] [address] Performed By: #### 2 4321-2 ####[facility] LABORATORYCLIA [id number] [address] Chloride [Moles/Vol] 105 mmol/L Normal 97-105 [facility] Comment on above: Order Comment: Speci men Type: BLOOD SPECIMENOrdering Facility: [facility] Address: [address] [place] [address] Performed By: #### 2 4321-2 ####[facility] LABORATORYCLIA [id number] [address] CO2 [Moles/Vol] 32 mmol/L High 22-30 [facility] Comment on above: Order Comment: Speci men Type: BLOOD SPECIMENOrdering Facility: [facility] Address: [address] [place] [address] Performed By: #### 2 4321-2 ####[facility] LABORATORYCLIA [id number] [address] Creatinine [Mass/Vol] 0.75 mg/dL Normal 0.73-1.22 [facility] Comment on above: Order Comment: Speci men Type: BLOOD SPECIMENOrdering Facility: [facility] Address: [address] [place] [address] Performed By: #### 2 4321-2 ####[facility] LABORATORYCLIA [id number] [address] ESTIMATED GLOMERULAR FILTRATION RATE 98 mL/min/1.73m??? Normal >=60 [facility] Comment on above: Order Comment: Speci men Type: BLOOD SPECIMENOrdering Facility: [facility] Address: [address] [place] [address] Result Comment: Luzmaria mated Glomerular Filtration Rate [...] By: #### 2 4321-2 ####[facility] LABORATORYCLIA [id number] [place] [address] [place] Glucose [Mass/Vol] 128 mg/dL High 74-99 [facility] Comment on above: Order Comment: Speci men Type: BLOOD SPECIMENOrdering Facility: [facility] Address: [address] [place] [address] Result Comment: The [place] Diabetes Association (ADA) provides guidance for cutoff [...] Standards of Medical Care in Diabetes 2016, [place] [employer]. Diabetes Care. 2016.39(Suppl 1). Performed By: #### 2 4321-2 ####[facility] LABORATORYCLIA [id number] [place] [address] [place] Potassium [Moles/Vol] 3.7 mmol/L Normal 3.7-5.1 [facility] Comment on above: Order Comment: Speci men Type: BLOOD SPECIMENOrdering Facility: [facility] Address: [address] [place] [address] Performed By: #### 2 4321-2 ####[facility] LABORATORYCLIA [id number] [place] [address] [place] Sodium [Moles/Vol] 145 mmol/L High 136-144 [facility] Comment on above: Order Comment: Speci men Type: BLOOD SPECIMENOrdering Facility: [facility] Address: [address] [place] [address] Performed By: #### 2 4321-2 ####[facility] LABORATORYCLIA [id number] [place] [address] [place] Urea nitrogen [Mass/Vol] 39 mg/dL High 9-24 [facility] Comment on above: Order Comment: Speci men Type: BLOOD SPECIMENOrdering Facility: [facility] Address: [address] [place] [address] Performed By: #### 2 4321-2 ####[facility] LABORATORYCLIA [id number] [address] [place] CASE MANAGEMon 07-22-2021 CASE MANAGEM Normal [facility] CBC W Auto Differential pane l (Bld)on 07-22-2021 Basophils (Bld) [#/Vol] 0.06 10*3/uL Normal <0.11 [facility] Comment on above: Order Comment: Speci men Type: BLOOD SPECIMENOrdering Facility: [facility] Address: [address] [place] [address] Performed By: #### 5 7021-8 ####[facility] LABORATORYCLIA [id number] [address] [place] Basophils/100 WBC (Bld) 0.5 % Normal [facility] Comment on above: Order Comment: Speci men Type: BLOOD SPECIMENOrdering Facility: [facility] Address: [address] [place] [address] Performed By: #### 5 7021-8 ####[facility] LABORATORYCLIA [id number] [address] [place] Differential cell count method Nom (Bld) Auto Normal [facility] Comment on above: Order Comment: Speci men Type: BLOOD SPECIMENOrdering Facility: [facility] Address: [address] [place] [address] Performed By: #### 5 7021-8 ####[facility] LABORATORYCLIA [id number] [place] [address] [place] Eosinophils (Bld) [#/Vol] 0.44 10*3/uL Normal <0.46 [facility] Comment on above: Order Comment: Speci men Type: BLOOD SPECIMENOrdering Facility: [facility] Address: [address] [address] Performed By: #### 5 7021-8 ####[facility] LABORATORYCLIA [id number] [address] Eosinophils/100 WBC (Bld) 3.9 % Normal [facility] Comment on above: Order Comment: Speci men Type: BLOOD SPECIMENOrdering Facility: [facility] Address: [address] [place] [address] Performed By: #### 5 7021-8 ####[facility] LABORATORYCLIA [id number] [address] Erythrocyte distribution width (RBC) [Ratio] 17.0 % High 11.5-15.0 [facility] Comment on above: Order Comment: Speci men Type: BLOOD SPECIMENOrdering Facility: [facility] Address: [address] [place] [address] Performed By: #### 5 7021-8 ####[facility] LABORATORYCLIA [id number] [address] Hematocrit (Bld) [Volume fraction] 32.0 % Low 39.0-51.0 [facility] Comment on above: Order Comment: Speci men Type: BLOOD SPECIMENOrdering Facility: [facility] Address: [address] [place] [address] Performed By: #### 5 7021-8 ####[facility] LABORATORYCLIA [id number] [address] [place] Hemoglobin (Bld) [Mass/Vol] 9.3 g/dL Low 13.0-17.0 [facility] Comment on above: Order Comment: Speci men Type: BLOOD SPECIMENOrdering Facility: [facility] Address: [address] [place] [address] Performed By: #### 5 7021-8 ####[facility] LABORATORYCLIA [id number] [address] [place] IMMATURE GRAN % 0.5 % Normal [facility] Comment on above: Order Comment: Speci men Type: BLOOD SPECIMENOrdering Facility: [facility] Address: [address] [place] [address] Performed By: #### 5 7021-8 ####[facility] LABORATORYCLIA [id number] [address] OF [facility] IMMATURE GRAN ABS 0.06 k/uL Normal <0.10 [facility] Comment on above: Order Comment: Speci men Type: BLOOD SPECIMENOrdering Facility: [facility] Address: [address] [place] [address] Performed By: #### 5 7021-8 ####[facility] LABORATORYCLIA [id number] [address] Lymphocytes (Bld) [#/Vol] 1.83 10*3/uL Normal 1.00-4.00 [facility] Comment on above: Order Comment: Speci men Type: BLOOD SPECIMENOrdering Facility: [facility] Address: [address] [place] [address] Performed By: #### 5 7021-8 ####[facility] LABORATORYCLIA [id number] [address] Lymphocytes/100 WBC (Bld) 16.1 % Normal [facility] Comment on above: Order Comment: Speci men Type: BLOOD SPECIMENOrdering Facility: [facility] Address: [address] [place] [address] Performed By: #### 5 7021-8 ####[facility] LABORATORYCLIA [id number] [address] MCH (RBC) [Entitic mass] 27.0 pg Normal 26.0-34.0 [facility] Comment on above: Order Comment: Speci men Type: BLOOD SPECIMENOrdering Facility: [facility] Address: [address] [place] [address] Performed By: #### 5 7021-8 ####[facility] LABORATORYCLIA [id number] [address] MCHC (RBC) [Mass/Vol] 29.1 g/dL Low 30.5-36.0 [facility] Comment on above: Order Comment: Speci men Type: BLOOD SPECIMENOrdering Facility: [facility] Address: [address] [place] [address] Performed By: #### 5 7021-8 ####[facility] LABORATORYCLIA [id number] [address] [place] MCV (RBC) [Entitic vol] 92.8 fL Normal 80.0-100.0 [facility] Comment on above: Order Comment: Speci men Type: BLOOD SPECIMENOrdering Facility: [facility] Address: [address] [place] [address] Performed By: #### 5 7021-8 ####[facility] LABORATORYCLIA [id number] [address] [place] Monocytes (Bld) [#/Vol] 0.87 10*3/uL High <0.87 [facility] Comment on above: Order Comment: Speci men Type: BLOOD SPECIMENOrdering Facility: [facility] Address: [address] [place] [address] Performed By: #### 5 7021-8 ####[facility] LABORATORYCLIA [id number] [address] STATES OF [facility] Monocytes/100 WBC (Bld) 7.6 % Normal [facility] Comment on above: Order Comment: Speci men Type: BLOOD SPECIMENOrdering Facility: [facility] Address: [address] [place] [address] Performed By: #### 5 7021-8 ####[facility] LABORATORYCLIA [id number] [address] [place] Neutrophils (Bld) [#/Vol] 8.12 10*3/uL High 1.45-7.50 [facility] Comment on above: Order Comment: Speci men Type: BLOOD SPECIMENOrdering Facility: [facility] Address: [address] [place] [address] Performed By: #### 5 7021-8 ####[facility] LABORATORYCLIA [id number] [address] Neutrophils/100 WBC (Bld) 71.4 % Normal [facility] Comment on above: Order Comment: Speci men Type: BLOOD SPECIMENOrdering Facility: [facility] Address: [address] [place] [address] Performed By: #### 5 7021-8 ####[facility] LABORATORYCLIA [id number] [address] Nucleated RBC (Bld) [#/Vol] 10*3/uL Normal <0.01 [facility] Comment on above: Order Comment: Speci men Type: BLOOD SPECIMENOrdering Facility: [facility] Address: [address] [place] [address] Performed By: #### 5 7021-8 ####[facility] LABORATORYCLIA [id number] [address] Nucleated RBC/100 WBC (Bld) [Ratio] 0.0 /100 WBC Normal [facility] Comment on above: Order Comment: Speci men Type: BLOOD SPECIMENOrdering Facility: [facility] Address: [address] [place] [address] Performed By: #### 5 7021-8 ####[facility] LABORATORYCLIA [id number] [address] [place] Platelet mean volume (Bld) [Entitic vol] 10.8 fL Normal 9.0-12.7 [facility] Comment on above: Order Comment: Speci men Type: BLOOD SPECIMENOrdering Facility: [facility] Address: [address] [place] [address] Performed By: #### 5 7021-8 ####[facility] LABORATORYCLIA [id number] [address] [place] Platelets (Bld) [#/Vol] 362 10*3/uL Normal 150-400 [facility] Comment on above: Order Comment: Speci men Type: BLOOD SPECIMENOrdering Facility: [facility] Address: [address] [place] [address] Performed By: #### 5 7021-8 ####[facility] LABORATORYCLIA [id number] [address] STATES OF [facility] RBC (Bld) [#/Vol] 3.45 10*6/uL Low 4.20-6.00 [facility] Comment on above: Order Comment: Speci men Type: BLOOD SPECIMENOrdering Facility: [facility] Address: [address] [place] [address] Performed By: #### 5 7021-8 ####[facility] LABORATORYCLIA [id number] [address] OF [facility] WBC (Bld) [#/Vol] 11.38 10*3/uL High 3.70-11.00 [facility] Comment on above: Order Comment: Speci men Type: BLOOD SPECIMENOrdering Facility: [facility] Address: [address] [place] [address] Performed By: #### 5 7021-8 ####[facility] LABORATORYCLIA [id number] [address] [facility] Magnesium [Mass/Vol] 2.3 mg/dL Normal 1.7-2.3 [facility] Comment on above: Order Comment: Speci men Type: BLOOD SPECIMENOrdering Facility: [facility] Address: [address] [place] [address] Performed By: #### 1 9123-9, 2777-1, 64622-8 ####[facility] LABORATORYCLIA [id number] [address] NT-proBNP SerPl-mCncon 07-22 Natriuretic peptide.B prohormone N-Terminal [Mass/Vol] 328 pg/mL High <125 [facility] Comment on above: Order Comment: Speci men Type: BLOOD SPECIMENOrdering Facility: [facility] Address: [address] [place] [address] Performed By: #### 1 9123-9, 2777-1, 34275-9 ####[facility] LABORATORYCLIA [id number] [address] OF [facility] NURSING PROGon 07-22-2021 NURSING PROG Normal [facility] NUTRITIONon 07-22-2021 NUTRITION Normal [facility] Phosphate SerPl-mCncon 07-22 Phosphate [Mass/Vol] 3.5 mg/dL Normal 2.7-4.8 [facility] Comment on above: Order Comment: Speci men Type: BLOOD SPECIMENOrdering Facility: [facility] Address: [address] [place] [address] Performed By: #### 1 9123-9, 2777-1, 28287-0 ####[facility] LABORATORYCLIA [id number] [address] THERAPY NTon 07-22-2021 THERAPY NT Normal [facility] THERAPY NT Normal [facility] aPTT PPPon 07-22-2021 aPTT Coag (PPP) [Time] 50.1 s High 23.0-32.4 [facility] Comment on above: Order Comment: Speci men Type: BLOOD SPECIMENOrdering Facility: [facility] Address: [address] [place] [address] Performed By: #### 1 4979-9 ####[facility] LABORATORYCLIA [id number] [address] [place] ALLIED HEALTHon 07-21-2021 ALLIED HEALTH Normal [facility] Bacteria Spec Resp Culton Bacteria identified Respiratory culture Nom (Unsp spec) Abnormal [facility] Comment on above: Performed By: #### 3 2355-0 ####[facility] LABORATORYCLIA [id number] [address] [place] Basic metabolic 2000 panelon 07-21-2021 Anion gap [Moles/Vol] 9 mmol/L Normal - [facility] Comment on above: Order Comment: Speci men Type: BLOOD SPECIMENOrdering Facility: [facility] Address: [address] [place] [address] Performed By: #### 1 9123-9, 27711-04, 86662-8 ####[facility]ORATORYCLIA [id number] [place] [address] [place] Calcium [Mass/Vol] 9.9 mg/dL Normal 8.5-10.2 [facility] Comment on above: Order Comment: Speci men Type: BLOOD SPECIMENOrdering Facility: [facility] Address: [address] [place] [address] Performed By: #### 1 9123-9, 2776-05, 26616-2 ####[facility] LABORATORYCLIA [id number] [place] [address] [place] Chloride [Moles/Vol] 103 mmol/L Normal 97-105 [facility] Comment on above: Order Comment: Speci men Type: BLOOD SPECIMENOrdering Facility: [facility] Address: [address] [place] [address] Performed By: #### 1 9123-9, 2776-05, ####[facility] LABORATORYCLIA [id number] [place] [address] [place] CO2 [Moles/Vol] 33 mmol/L High 22-30 [facility] Comment on above: Order Comment: Speci men Type: BLOOD SPECIMENOrdering Facility: [facility] Address: [address] [address] Performed By: #### 1 9123-9, 2776-05, 99431-9 ####[facility] LABORATORYCLIA [id number] [place] [address] [place] Creatinine [Mass/Vol] 0.80 mg/dL Normal 0.73-1.22 [facility] Comment on above: Order Comment: Speci men Type: BLOOD SPECIMENOrdering Facility: [facility] Address: [address] [place] [address] Performed By: #### 1 9123-9, 2777-, 79678-6 ####[facility]ITALCLIA [id number] [address] OF [facility] ESTIMATED GLOMERULAR FILTRATION RATE 96 mL/min/1.73m??? Normal >=60 [facility] Comment on above: Order Comment: Shira feldman Type: BLOOD SPECIMENOrdering Facility: [facility] Address: [address] [place] [address] Result Comment: Luzmaria mated Glomerular Filtration Rate [...] GFR. Performed By: #### 1 9123-9, 2777-, 44729-3 ####[facility] CENTERIA [id number] [address] [place] Glucose [Mass/Vol] 148 mg/dL High 74-99 [facility] Comment on above: Order Comment: Shira feldman Type: BLOOD SPECIMENOrdering Facility: [facility] Address: [address] [place] [address] Result Comment: The [place] Diabetes Association (ADA) provides guidance for cutoff [...] Standards of Medical Care in Diabetes 2016, [place] [employer]. Diabetes Care. 2016.39(Suppl 1). Performed By: #### 1 9123-9, 2777-, 05386-4 ####[facility] LABORATORYCLIA [id number] [address] [place] Potassium [Moles/Vol] 4.1 mmol/L Normal 3.7-5.1 [facility] Comment on above: Order Comment: Speci men Type: BLOOD SPECIMENOrdering Facility: [facility] Address: [address] [place] [address] Performed By: #### 1 9123-9, 2777-1, 81905-2 ####[facility] LABORATORYCLIA [id number] [address] STATES OF [facility] Sodium [Moles/Vol] 145 mmol/L High 136-144 [facility] Comment on above: Order Comment: Speci men Type: BLOOD SPECIMENOrdering Facility: [facility] Address: [address] [place] [address] Performed By: #### 1 9123-9, 2777-1, 18967-4 ####[facility] LABORATORYCLIA [id number] [address] STATES [facility] Urea nitrogen [Mass/Vol] 40 mg/dL High 9-24 [facility] Comment on above: Order Comment: Speci men Type: BLOOD SPECIMENOrdering Facility: [facility] Address: [address] [place] [address] Performed By: #### 1 9123-9, 2777-1, 98722-7 ####[facility] LABORATORYCLIA [id number] [address] [place] CBC W Auto Differential pane l (Bld)on 07-21-2021 Basophils (Bld) [#/Vol] 0.06 10*3/uL Normal <0.11 [facility] Comment on above: Order Comment: Speci men Type: BLOOD SPECIMENOrdering Facility: [facility] Address: [address] [place] [address] Performed By: #### 5 7021-8 ####[facility] LABORATORYCLIA [id number] [address] Basophils/100 WBC (Bld) 0.4 % Normal [facility] Comment on above: Order Comment: Speci men Type: BLOOD SPECIMENOrdering Facility: [facility] Address: [address] [place] [address] Performed By: #### 5 7021-8 ####[facility] LABORATORYCLIA [id number] [address] Differential cell count method Nom (Bld) Auto Normal [facility] Comment on above: Order Comment: Speci men Type: BLOOD SPECIMENOrdering Facility: [facility] Address: [address] [place] [address] Performed By: #### 5 7021-8 ####[facility] LABORATORYCLIA [id number] [address] STATES [facility] Eosinophils (Bld) [#/Vol] 0.04 10*3/uL Normal <0.46 [facility] Comment on above: Order Comment: Speci men Type: BLOOD SPECIMENOrdering Facility: [facility] Address: [address] [place] [address] Performed By: #### 5 7021-8 ####[facility] LABORATORYCLIA [id number] [address] Eosinophils/100 WBC (Bld) 0.3 % Normal [facility] Comment on above: Order Comment: Speci men Type: BLOOD SPECIMENOrdering Facility: [facility] Address: [address] [place] [address] Performed By: #### 5 7021-8 ####[facility] LABORATORYCLIA [id number] [address] Erythrocyte distribution width (RBC) [Ratio] 17.0 % High 11.5-15.0 [facility] Comment on above: Order Comment: Speci men Type: BLOOD SPECIMENOrdering Facility: [facility] Address: [address] [place] [address] Performed By: #### 5 7021-8 ####[facility] LABORATORYCLIA [id number] [address] Hematocrit (Bld) [Volume fraction] 33.1 % Low 39.0-51.0 [facility] Comment on above: Order Comment: Speci men Type: BLOOD SPECIMENOrdering Facility: [facility] Address: [address] [place] [address] Performed By: #### 5 7021-8 ####[facility] LABORATORYCLIA [id number] [address] [place] Hemoglobin (Bld) [Mass/Vol] 9.7 g/dL Low 13.0-17.0 [facility] Comment on above: Order Comment: Speci men Type: BLOOD SPECIMENOrdering Facility: [facility] Address: [address] [place] [address] Performed By: #### 5 7021-8 ####[facility] LABORATORYCLIA [id number] [address] IMMATURE GRAN % 0.5 % Normal [facility] Comment on above: Order Comment: Speci men Type: BLOOD SPECIMENOrdering Facility: [facility] Address: [address] [place] [address] Performed By: #### 5 7021-8 ####[facility] LABORATORYCLIA [id number] [address] IMMATURE GRAN ABS 0.07 k/uL Normal <0.10 [facility] Comment on above: Order Comment: Speci men Type: BLOOD SPECIMENOrdering Facility: [facility] Address: [address] [place] [address] Performed By: #### 5 7021-8 ####[facility] LABORATORYCLIA [id number] [address] [place] Lymphocytes (Bld) [#/Vol] 1.99 10*3/uL Normal 1.00-4.00 [facility] Comment on above: Order Comment: Speci men Type: BLOOD SPECIMENOrdering Facility: [facility] Address: [address] [place] [address] Performed By: #### 5 7021-8 ####[facility] LABORATORYCLIA [id number] [address] Lymphocytes/100 WBC (Bld) 13.4 % Normal [facility] Comment on above: Order Comment: Speci men Type: BLOOD SPECIMENOrdering Facility: [facility] Address: [address] [place] [address] Performed By: #### 5 7021-8 ####[facility] LABORATORYCLIA [id number] [address] MCH (RBC) [Entitic mass] 27.2 pg Normal 26.0-34.0 [facility] Comment on above: Order Comment: Speci men Type: BLOOD SPECIMENOrdering Facility: [facility] Address: [address] [place] [address] Performed By: #### 5 7021-8 ####[facility] LABORATORYCLIA [id number] [address] STATES [facility] MCHC (RBC) [Mass/Vol] 29.3 g/dL Low 30.5-36.0 [facility] Comment on above: Order Comment: Speci men Type: BLOOD SPECIMENOrdering Facility: [facility] Address: [address] [place] [address] Performed By: #### 5 7021-8 ####[facility] LABORATORYCLIA [id number] [address] [place] [facility] MCV (RBC) [Entitic vol] 92.7 fL Normal 80.0-100.0 [facility] Comment on above: Order Comment: Speci men Type: BLOOD SPECIMENOrdering Facility: [facility] Address: [address] [place] [address] Performed By: #### 5 7021-8 ####[facility] LABORATORYCLIA [id number] [address] Monocytes (Bld) [#/Vol] 1.10 10*3/uL High <0.87 [facility] Comment on above: Order Comment: Speci men Type: BLOOD SPECIMENOrdering Facility: [facility] Address: [address] [place] [address] Performed By: #### 5 7021-8 ####[facility]ORATORYCLIA [id number] [address] Monocytes/100 WBC (Bld) 7.4 % Normal [facility] Comment on above: Order Comment: Speci men Type: BLOOD SPECIMENOrdering Facility: [facility] Address: [address] [place] [address] Performed By: #### 5 7021-8 ####[facility] LABORATORYCLIA [id number] [address] [place] Neutrophils (Bld) [#/Vol] 11.61 10*3/uL High 1.45-7.50 [facility] Comment on above: Order Comment: Speci men Type: BLOOD SPECIMENOrdering Facility: [facility] Address: [address] [place] [address] Performed By: #### 5 7021-8 ####[facility]ORATORYCLIA [id number] [address] [place] Neutrophils/100 WBC (Bld) 78.0 % Normal [facility] Comment on above: Order Comment: Speci men Type: BLOOD SPECIMENOrdering Facility: [facility] Address: [address] [place] [address] Performed By: #### 5 7021-8 ####[facility]ORATORYCLIA [id number] [address] [place] Nucleated RBC (Bld) [#/Vol] 10*3/uL Normal <0.01 [facility] Comment on above: Order Comment: Speci men Type: BLOOD SPECIMENOrdering Facility: [facility] Address: [address] [place] [address] Performed By: #### 5 7021-8 ####[facility]ORATORYCLIA [id number] [address] [place] Nucleated RBC/100 WBC (Bld) [Ratio] 0.0 /100 WBC Normal [facility] Comment on above: Order Comment: Speci men Type: BLOOD SPECIMENOrdering Facility: [facility] Address: [address] [place] [address] Performed By: #### 5 7021-8 ####[facility] LABORATORYCLIA [id number] [address] [place] Platelet mean volume (Bld) [Entitic vol] 10.4 fL Normal 9.0-12.7 [facility] Comment on above: Order Comment: Speci men Type: BLOOD SPECIMENOrdering Facility: [facility] Address: [address] [place] [address] Performed By: #### 5 7021-8 ####[facility] LABORATORYCLIA [id number] [address] [place] Platelets (Bld) [#/Vol] 396 10*3/uL Normal 150-400 [facility] Comment on above: Order Comment: Speci men Type: BLOOD SPECIMENOrdering Facility: [facility] Address: [address] [place] [address] Performed By: #### 5 7021-8 ####[facility] LABORATORYCLIA [id number] [address] [place] RBC (Bld) [#/Vol] 3.57 10*6/uL Low 4.20-6.00 [facility] Comment on above: Order Comment: Speci men Type: BLOOD SPECIMENOrdering Facility: [facility] Address: [address] [place], [place] [address] Performed By: #### 5 7021-8 ####[facility]ORATORYCLIA [id number] [address] [place] WBC (Bld) [#/Vol] 14.87 10*3/uL High 3.70-11.00 [facility] Comment on above: Order Comment: Speci men Type: BLOOD SPECIMENOrdering Facility: [facility] Address: [address] [place] [address] Performed By: #### 5 7021-8 ####[facility] LABORATORYCLIA [id number] [address] OF [facility] Gas and Carbon monoxide pane l (BldV)on 07-21-2021 Base excess Calc (BldV) [Moles/Vol] 7 mmol/L High 0-2 [facility] Comment on above: Order Comment: Speci men Type: VENOUS BLOOD SPECIMENOrdering Facility: [facility] Address: [address] [place] [address] Performed By: #### 2 4344-4 ####[facility]ORATORYCLIA [id number] [address] Body temperature 98.6 [degF] Normal [facility] Comment on above: Order Comment: Speci men Type: VENOUS BLOOD SPECIMENOrdering Facility: [facility] Address: [address] [place] [address] Performed By: #### 2 4344-4 ####[facility] LABORATORYCLIA [id number] [address] [place] CALCIUM IONIZED, PH CORRECTED 1.21 mmol/L Normal 1.08-1.30 [facility] Comment on above: Order Comment: Speci men Type: VENOUS BLOOD SPECIMENOrdering Facility: [facility] Address: [address] [place] [address] Performed By: #### 2 4344-4 ####[facility]ORATORYCLIA [id number] [address] [place] Calcium.ionized (BldV) [Mass/Vol] 1.23 mmol/L Normal 1.08-1.30 [facility] Comment on above: Order Comment: Speci men Type: VENOUS BLOOD SPECIMENOrdering Facility: [facility] Address: [address] [place] [address] Performed By: #### 2 4344-4 ####[facility]ORATORYCLIA [id number] [address] [place] Carboxyhemoglobin (BldV) [Mass fraction] 2.3 % High 0.0-2.0 [facility] Comment on above: Order Comment: Speci men Type: VENOUS BLOOD SPECIMENOrdering Facility: [facility] Address: [address] [place] [address] Result Comment: Carb oxyhemoglobin Reference Range for Smokers: 2.0-8.0% Performed By: #### 2 4344-4 ####[facility]ORATORYCLIA [id number] [place] [address] [place] CO2 (BldV) [Partial pressure] 58 mm[Hg] High 42-55 [facility] Comment on above: Order Comment: Speci men Type: VENOUS BLOOD SPECIMENOrdering Facility: [facility] Address: [address] [place] [address] Performed By: #### 2 4344-4 ####[facility]ORATORYCLIA [id number] [place] [address] [place] CO2 [Moles/Vol] 31 mmol/L High 25-29 [facility] Comment on above: Order Comment: Speci men Type: VENOUS BLOOD SPECIMENOrdering Facility: [facility] Address: [address] [place] [address] Performed By: #### 2 4344-4 ####[facility] LABORATORYCLIA [id number] [place] [address] [place] Glucose [Mass/Vol] 146 mg/dL High 60-105 [facility] Comment on above: Order Comment: Speci men Type: VENOUS BLOOD SPECIMENOrdering Facility: [facility] Address: [address] [place] [address] Performed By: #### 2 4344-4 ####[facility]ORATORYCLIA [id number] [place] [address] [place] HCO3 (Bld) [Moles/Vol] 33 mmol/L High 24-28 [facility] Comment on above: Order Comment: Speci men Type: VENOUS BLOOD SPECIMENOrdering Facility: [facility] Address: [address] [place] [address] Performed By: #### 2 4344-4 ####[facility] LABORATORYCLIA [id number] [address] [place] Hematocrit (Bld) [Volume fraction] 30.1 % Low 39.0-51.0 [facility] Comment on above: Order Comment: Speci men Type: VENOUS BLOOD SPECIMENOrdering Facility: [facility] Address: [address] [place] [address] Performed By: #### 2 4344-4 ####[facility]ORATORYCLIA [id number] [address] [place] Hemoglobin (Bld) [Mass/Vol] 9.7 g/dL Low 13.0-17.0 [facility] Comment on above: Order Comment: Speci men Type: VENOUS BLOOD SPECIMENOrdering Facility: [facility] Address: [address] [place] [address] Performed By: #### 2 4344-4 ####[facility]ORATORYCLIA [id number] [address] Methemoglobin (Bld) [Mass fraction] % Normal 0.0-1.5 [facility] Comment on above: Order Comment: Speci men Type: VENOUS BLOOD SPECIMENOrdering Facility: [facility] Address: [address] [place] [address] Performed By: #### 2 4344-4 ####[facility]ORATORYCLIA [id number] [address] [place] O2 THERAPY NC = Nasal Cannula Normal [facility] Comment on above: Order Comment: Speci men Type: VENOUS BLOOD SPECIMENOrdering Facility: [facility] Address: [address] [place] [address] Performed By: #### 2 4344-4 ####[place] LABORATORYCLIA [id number] [address] [place] Oxygen (BldV) [Partial pressure] 64 mm[Hg] High 35-45 [facility] Comment on above: Order Comment: Speci men Type: VENOUS BLOOD SPECIMENOrdering Facility: [facility] Address: [address] [address] Performed By: #### 2 4344-4 ####[place] [facility] LABORATORYCLIA [id number] [address] [place] Oxygen saturation in Blood 90 % High 60-85 [facility] Comment on above: Order Comment: Speci men Type: VENOUS BLOOD SPECIMENOrdering Facility: [facility] Address: [address] [place] [address] Performed By: #### 2 4344-4 ####[place] [facility] LABORATORYCLIA [id number] [address] [place] Oxyhemoglobin (BldV) [Mass fraction] 87 % High 60-85 [facility] Comment on above: Order Comment: Speci men Type: VENOUS BLOOD SPECIMENOrdering Facility: [facility] Address: [address] [place] [address] Performed By: #### 2 4344-4 ####[facility]ORATORYCLIA [id number] [place] [address] [place] pH (BldV) 7.38 [pH] Normal 7.32-7.42 [facility] Comment on above: Order Comment: Speci men Type: VENOUS BLOOD SPECIMENOrdering Facility: [facility] Address: [address] [place] [address] Performed By: #### 2 4344-4 ####[facility] LABORATORYCLIA [id number] [place] [address] [place] Potassium [Moles/Vol] 3.8 mmol/L Normal 3.5-5.0 [facility] Comment on above: Order Comment: Speci men Type: VENOUS BLOOD SPECIMENOrdering Facility: [facility] Address: [address] [place] [address] Performed By: #### 2 4344-4 ####[facility]ORATORYCLIA [id number] [place] [address] [place] Sodium [Moles/Vol] 145 mmol/L High 136-144 [facility] Comment on above: Order Comment: Speci men Type: VENOUS BLOOD SPECIMENOrdering Facility: [facility] Address: [address] [place] [address] Performed By: #### 2 4344-4 ####[facility]ATORYCLIA [id number] [place] [address] [place] Base excess Calc (BldV) [Moles/Vol] 8 mmol/L High 0-2 [facility] Comment on above: Order Comment: Speci men Type: VENOUS BLOOD SPECIMENOrdering Facility: [facility] Address: [address] [place] [address] Performed By: #### 2 4344-4 ####[facility] LABORATORYCLIA [id number] [address] [place] Body temperature 100.22 [degF] Normal [facility] Comment on above: Order Comment: Speci men Type: VENOUS BLOOD SPECIMENOrdering Facility: [facility] Address: [address] [place] [address] Performed By: #### 2 4344-4 ####[facility] LABORATORYCLIA [id number] [place] [address] [place] CALCIUM IONIZED, PH CORRECTED 1.25 mmol/L Normal 1.08-1.30 [facility] Comment on above: Order Comment: Speci men Type: VENOUS BLOOD SPECIMENOrdering Facility: [facility] Address: [address] [place] [address] Performed By: #### 2 4344-4 ####[facility] LABORATORYCLIA [id number] [address] [place] Calcium.ionized (BldV) [Mass/Vol] 1.24 mmol/L Normal 1.08-1.30 [facility] Comment on above: Order Comment: Speci men Type: VENOUS BLOOD SPECIMENOrdering Facility: [facility] Address: [address] [place] [address] Performed By: #### 2 4344-4 ####[facility]ORATORYCLIA [id number] [address] [place] Carboxyhemoglobin (BldV) [Mass fraction] 2.5 % High 0.0-2.0 [facility] Comment on above: Order Comment: Speci men Type: VENOUS BLOOD SPECIMENOrdering Facility: [facility] Address: [address] [place] [address] Result Comment: Carb oxyhemoglobin Reference Range for Smokers: 2.0-8.0% Performed By: #### 2 4344-4 ####[facility] LABORATORYCLIA [id number] [address] [place] CO2 (BldV) [Partial pressure] 53 mm[Hg] Normal 42-55 [facility] Comment on above: Order Comment: Speci men Type: VENOUS BLOOD SPECIMENOrdering Facility: [facility] Address: [address] [place] [address] Performed By: #### 2 4344-4 ####[facility] LABORATORYCLIA [id number] [address] [place] CO2 [Moles/Vol] 31 mmol/L High 25-29 [facility] Comment on above: Order Comment: Speci men Type: VENOUS BLOOD SPECIMENOrdering Facility: [facility] Address: [address] [place] [address] Performed By: #### 2 4344-4 ####[facility]ORATORYCLIA [id number] [address] [place] CO2 adjusted to patient's actual temperature (BldV) [Partial pressure] 56 mmHg High 42-55 [facility] Comment on above: Order Comment: Speci men Type: VENOUS BLOOD SPECIMENOrdering Facility: [facility] Address: [address] [place] [address] Performed By: #### 2 4344-4 ####[facility]ORATORYCLIA [id number] [address] [place] Glucose [Mass/Vol] 131 mg/dL High 60-105 [facility] Comment on above: Order Comment: Speci men Type: VENOUS BLOOD SPECIMENOrdering Facility: [facility] Address: [address] [address] Performed By: #### 2 4344-4 ####[facility]ORATORYCLIA [id number] [address] HCO3 (Bld) [Moles/Vol] 33 mmol/L High 24-28 [facility] Comment on above: Order Comment: Speci men Type: VENOUS BLOOD SPECIMENOrdering Facility: [facility] Address: [address] [address] Performed By: #### 2 4344-4 ####[facility]ORATORYCLIA [id number] [address] Hematocrit (Bld) [Volume fraction] 30.8 % Low 39.0-51.0 [facility] Comment on above: Order Comment: Speci men Type: VENOUS BLOOD SPECIMENOrdering Facility: [facility] Address: [address] [address] Performed By: #### 2 4344-4 ####[facility]ORATORYCLIA [id number] [address] Hemoglobin (Bld) [Mass/Vol] 10.0 g/dL Low 13.0-17.0 [facility] Comment on above: Order Comment: Speci men Type: VENOUS BLOOD SPECIMENOrdering Facility: [facility] Address: [address] [address] Performed By: #### 2 4344-4 ####[facility]ORATORYCLIA [id number] [address] Methemoglobin (Bld) [Mass fraction] % Normal 0.0-1.5 [facility] Comment on above: Order Comment: Speci men Type: VENOUS BLOOD SPECIMENOrdering Facility: [facility] Address: [address] [address] Performed By: #### 2 4344-4 ####[facility]ORATORYCLIA [id number] [address] O2 THERAPY NC = Nasal Cannula Normal [facility] Comment on above: Order Comment: Speci men Type: VENOUS BLOOD SPECIMENOrdering Facility: [facility] Address: [address] [address] Performed By: #### 2 4344-4 ####[facility]ORATORYCLIA [id number] [address] [place] Oxygen (BldV) [Partial pressure] 58 mm[Hg] High 35-45 [facility] Comment on above: Order Comment: Speci men Type: VENOUS BLOOD SPECIMENOrdering Facility: [facility] Address: [address] [place] [address] Performed By: #### 2 4344-4 ####[facility]ORATORYCLIA [id number] [address] [place] Oxygen adjusted to patient's actual temperature (BldV) [Partial pressure] 61 mmHg High 35-45 [facility] Comment on above: Order Comment: Speci men Type: VENOUS BLOOD SPECIMENOrdering Facility: [facility] Address: [address] [place] [address] Performed By: #### 2 4344-4 ####[facility]ATORYCLIA [id number] [address] [place] Oxygen saturation in Blood 88 % High 60-85 [facility] Comment on above: Order Comment: Speci men Type: VENOUS BLOOD SPECIMENOrdering Facility: [facility] Address: [address] [address] Performed By: #### 2 4344-4 ####[facility]ATORYCLIA [id number] [address] [place] Oxyhemoglobin (BldV) [Mass fraction] 85 % Normal 60-85 [facility] Comment on above: Order Comment: Speci men Type: VENOUS BLOOD SPECIMENOrdering Facility: [facility] Address: [address] [address] Performed By: #### 2 4344-4 ####[facility]ATORYCLIA [id number] [address] [place] pH (BldV) 7.41 [pH] Normal 7.32-7.42 [facility] Comment on above: Order Comment: Speci men Type: VENOUS BLOOD SPECIMENOrdering Facility: [facility] Address: [address] [place] [address] Performed By: #### 2 4344-4 ####[facility]ORATORYCLIA [id number] [address] [place] pH adjusted to patient's actual temperature (BldV) 7.40 Normal 7.32-7.42 [facility] Comment on above: Order Comment: Speci men Type: VENOUS BLOOD SPECIMENOrdering Facility: [facility] Address: [address] [place] [address] Performed By: #### 2 4344-4 ####[facility]ORATORYCLIA [id number] [address] [place] Potassium [Moles/Vol] 4.0 mmol/L Normal 3.5-5.0 [facility] Comment on above: Order Comment: Speci men Type: VENOUS BLOOD SPECIMENOrdering Facility: [facility] Address: [address] [place] [address] Performed By: #### 2 4344-4 ####[facility] LABORATORYCLIA [id number] [address] [place] Sodium [Moles/Vol] 146 mmol/L High 136-144 [facility] Comment on above: Order Comment: Speci men Type: VENOUS BLOOD SPECIMENOrdering Facility: [facility] Address: [address] [place] [address] Performed By: #### 2 4344-4 ####[facility]ORATORYCLIA [id number] [place] [address] [place] Magnesium SerPl-mCncon 07-21 Magnesium [Mass/Vol] 2.5 mg/dL High 1.7-2.3 [facility] Comment on above: Order Comment: Speci men Type: BLOOD SPECIMENOrdering Facility: [facility] Address: [address] [place] [address] [place] [address] Performed By: #### 1 9123-9, 2777-1, 80295-8 ####[facility]ORATORYCLIA [id number] [address] OF [facility] NURSING PROGon 07-21-2021 NURSING PROG Normal [facility] Phosphate SerPl-mCncon 07-21 Phosphate [Mass/Vol] 3.7 mg/dL Normal 2.7-4.8 [facility] Comment on above: Order Comment: Speci men Type: BLOOD SPECIMENOrdering Facility: [facility] Address: [address] [place] [address] Performed By: #### 1 9123-9, 2777-, 62755-9 ####[facility]ORATORYCLIA [id number] [address] THERAPY NTon 07-21-2021 THERAPY NT Normal [facility] XR CHEST 1V FRONTALon 2021 XR CHEST 1V FRONTAL Normal [facility] aPTT PPPon 07-21-2021 aPTT Coag (PPP) [Time] 53.0 s High 23.0-32.4 [facility] Comment on above: Order Comment: Speci men Type: BLOOD SPECIMENOrdering Facility: [facility] Address: [address] [place] [address] Performed By: #### 1 4979-9 ####[facility]ORATORYCLIA [id number] [address] [place] ALLIED HEALTHon 07-20-2021 ALLIED HEALTH Normal [facility] Basic metabolic 2000 panelon 07-20-2021 Anion gap [Moles/Vol] 8 mmol/L Low 9-18 [facility] Comment on above: Order Comment: Speci men Type: BLOOD SPECIMENOrdering Facility: [facility] Address: [address] [place] [address] [address] [place] [address] Performed By: #### 2 4321-2, 71676-0, 2776-05 ####[facility] LABORATORYCLIA [id number] [place] [address] [place] Calcium [Mass/Vol] 9.7 mg/dL Normal 8.5-10.2 [facility] Comment on above: Order Comment: Speci men Type: BLOOD SPECIMENOrdering Facility: [facility] Address: [address] [place] [address] Performed By: #### 2 4321-2, , 2776-05 ####[facility]ORATORYCLIA [id number] [place] [address] [place] Chloride [Moles/Vol] 104 mmol/L Normal 97-105 [facility] Comment on above: Order Comment: Speci men Type: BLOOD SPECIMENOrdering Facility: [facility] Address: [address] [place] [address] Performed By: #### 2 4320-2, , 2776-05 ####[facility]ORATORYCLIA [id number] [place] [address] [place] CO2 [Moles/Vol] 34 mmol/L High 22-30 [facility] Comment on above: Order Comment: Speci men Type: BLOOD SPECIMENOrdering Facility: [facility] Address: [address] [place] [address] Performed By: #### 2 1-2, , 2776-05 ####[facility]ORATORYCLIA [id number] [place] [address] [place] Creatinine [Mass/Vol] 0.76 mg/dL Normal 0.73-1.22 [facility] Comment on above: Order Comment: Speci men Type: BLOOD SPECIMENOrdering Facility: [facility] Address: [address] [place] [address] Performed By: #### 2 4321-2, , 2776-05 ####[facility] LABORATORYCLIA [id number] [address] [place] ESTIMATED GLOMERULAR FILTRATION RATE 97 mL/min/1.73m??? Normal >=60 [facility] Comment on above: Order Comment: Shira feldman Type: BLOOD SPECIMENOrdering Facility: [facility] Address: [address] [place] [address] Result Comment: Luzmaria mated Glomerular Filtration Rate [...] actual GFR. Performed By: #### 2 4321-2, 81754-0, 2777-1 ####[facility]ITALCL[facility] [id number] [place] [address] [place] Glucose [Mass/Vol] 123 mg/dL High 74-99 [facility] Comment on above: Order Comment: Shira feldman Type: BLOOD SPECIMENOrdering Facility: [facility] Address: [address] [place] [address] Result Comment: The [place] [employer] (ADA) provides guidance for cutoff [...] Standards of Medical Care in Diabetes 2016, [place] [employer]. Diabetes Care. 2016.39(Suppl 1). Performed By: #### 2 4321-2, 19720-1, 2776- ####[facility]ORATORYCLIA [id number] [place] [id number] [place] Potassium [Moles/Vol] 4.4 mmol/L Normal 3.7-5.1 [facility] Comment on above: Order Comment: Shira [facility] Type: BLOOD SPECIMENOrdering Facility: [facility] Address: [address] [place], [place] [address] Performed By: #### 2 4321-2, 78409-9, 1 ####[facility]ORATORYCLIA [id number] [address] [place] Sodium [Moles/Vol] 146 mmol/L High 136-144 [facility] Comment on above: Order Comment: Speci men Type: BLOOD SPECIMENOrdering Facility: [facility] Address: [address] [place] [address] Performed By: #### 2 4321-2, , 27711-04 ####[facility]ORATORYCLIA [id number] [address] [place] Urea nitrogen [Mass/Vol] 38 mg/dL High 9-24 [facility] Comment on above: Order Comment: Speci men Type: BLOOD SPECIMENOrdering Facility: [facility] Address: [address] [place] [address] Performed By: #### 2 4321-2, , 27711-04 ####[facility]ORATORYCLIA [id number] [address] [place] CASE MANAGEMon 07-20-2021 CASE MANAGEM Normal [facility] CBC W Auto Differential pane l (Bld)on 07-20-2021 Basophils (Bld) [#/Vol] 0.05 10*3/uL Normal <0.11 [facility] Comment on above: Order Comment: Speci men Type: BLOOD SPECIMENOrdering Facility: [facility] Address: [address] [place] [address] Performed By: #### 5 7021-8 ####[facility]ORATORYCLIA [id number] [address] [place] Basophils/100 WBC (Bld) 0.5 % Normal [facility] Comment on above: Order Comment: Speci men Type: BLOOD SPECIMENOrdering Facility: [facility] Address: [address] [place] [address] Performed By: #### 5 7021-8 ####[facility]ORATORYCLIA [id number] [address] Differential cell count method Nom (Bld) Auto Normal [facility] Comment on above: Order Comment: Speci men Type: BLOOD SPECIMENOrdering Facility: [facility] Address: [address] [place] [address] Performed By: #### 5 7021-8 ####[facility]ORATORYCLIA [id number] [address] Eosinophils (Bld) [#/Vol] 0.43 10*3/uL Normal <0.46 [facility] Comment on above: Order Comment: Speci men Type: BLOOD SPECIMENOrdering Facility: [facility] Address: [address] [place] [address] Performed By: #### 5 7021-8 ####[facility]ORATORYCLIA [id number] [address] Eosinophils/100 WBC (Bld) 4.1 % Normal [facility] Comment on above: Order Comment: Speci men Type: BLOOD SPECIMENOrdering Facility: [facility] Address: [address] [place] [address] Performed By: #### 5 7021-8 ####[facility]ORATORYCLIA [id number] [address] Erythrocyte distribution width (RBC) [Ratio] 16.7 % High 11.5-15.0 [facility] Comment on above: Order Comment: Speci men Type: BLOOD SPECIMENOrdering Facility: [facility] Address: [address] [place] [address] Performed By: #### 5 7021-8 ####[facility]ORATORYCLIA [id number] [address] Hematocrit (Bld) [Volume fraction] 33.0 % Low 39.0-51.0 [facility] Comment on above: Order Comment: Speci men Type: BLOOD SPECIMENOrdering Facility: [facility] Address: [address] [place] [address] Performed By: #### 5 7021-8 ####[facility]ORATORYCLIA [id number] [address] Hemoglobin (Bld) [Mass/Vol] 9.7 g/dL Low 13.0-17.0 [facility] Comment on above: Order Comment: Speci men Type: BLOOD SPECIMENOrdering Facility: [facility] Address: [address] [place] [address] Performed By: #### 5 7021-8 ####[facility]ORATORYCLIA [id number] [address] IMMATURE GRAN % 0.4 % Normal [facility] Comment on above: Order Comment: Speci men Type: BLOOD SPECIMENOrdering Facility: [facility] Address: [address] [place] [address] Performed By: #### 5 7021-8 ####[facility]ORATORYCLIA [id number] [address] IMMATURE GRAN ABS 0.04 k/uL Normal <0.10 [facility] Comment on above: Order Comment: Speci men Type: BLOOD SPECIMENOrdering Facility: [facility] Address: [address] [place] [address] Performed By: #### 5 7021-8 ####[facility]ORATORYCLIA [id number] [address] Lymphocytes (Bld) [#/Vol] 1.99 10*3/uL Normal 1.00-4.00 [facility] Comment on above: Order Comment: Speci men Type: BLOOD SPECIMENOrdering Facility: [facility] Address: [address] [place] [address] Performed By: #### 5 7021-8 ####[facility]ORATORYCLIA [id number] [address] Lymphocytes/100 WBC (Bld) 18.8 % Normal [facility] Comment on above: Order Comment: Speci men Type: BLOOD SPECIMENOrdering Facility: [facility] Address: [address] [place] [address] Performed By: #### 5 7021-8 ####[facility]ORATORYCLIA [id number] [address] MCH (RBC) [Entitic mass] 27.8 pg Normal 26.0-34.0 [facility] Comment on above: Order Comment: Speci men Type: BLOOD SPECIMENOrdering Facility: [facility] Address: [address] [place] [address] Performed By: #### 5 7021-8 ####[facility] LABORATORYCLIA [id number] [address] MCHC (RBC) [Mass/Vol] 29.4 g/dL Low 30.5-36.0 [facility] Comment on above: Order Comment: Speci men Type: BLOOD SPECIMENOrdering Facility: [facility] Address: [address] [place] [address] Performed By: #### 5 7021-8 ####[facility]ORATORYCLIA [id number] [address] MCV (RBC) [Entitic vol] 94.6 fL Normal 80.0-100.0 [facility] Comment on above: Order Comment: Speci men Type: BLOOD SPECIMENOrdering Facility: [facility] Address: [address] [place] [address] Performed By: #### 5 7021-8 ####[facility]ORATORYCLIA [id number] [address] Monocytes (Bld) [#/Vol] 0.82 10*3/uL Normal <0.87 [facility] Comment on above: Order Comment: Speci men Type: BLOOD SPECIMENOrdering Facility: [facility] Address: [address] [place] [address] Performed By: #### 5 7021-8 ####[facility]ORYCLIA [id number] [address] [place] Monocytes/100 WBC (Bld) 7.8 % Normal [facility] Comment on above: Order Comment: Speci men Type: BLOOD SPECIMENOrdering Facility: [facility] Address: [address] [place] [address] Performed By: #### 5 7021-8 ####[facility]ORYCLIA [id number] [address] [place] Neutrophils (Bld) [#/Vol] 7.23 10*3/uL Normal 1.45-7.50 [facility] Comment on above: Order Comment: Speci men Type: BLOOD SPECIMENOrdering Facility: [facility] Address: [address] [place] [address] Performed By: #### 5 7021-8 ####[facility]ORATORYCLIA [id number] [address] Neutrophils/100 WBC (Bld) 68.4 % Normal [facility] Comment on above: Order Comment: Speci men Type: BLOOD SPECIMENOrdering Facility: [facility] Address: [address] [place] [address] Performed By: #### 5 7021-8 ####[facility]ORYCLIA [id number] [address] [place] Nucleated RBC (Bld) [#/Vol] 10*3/uL Normal <0.01 [facility] Comment on above: Order Comment: Speci men Type: BLOOD SPECIMENOrdering Facility: [facility] Address: [address] [place] [address] Performed By: #### 5 7021-8 ####[facility] LABORATORYCLIA [id number] [address] Nucleated RBC/100 WBC (Bld) [Ratio] 0.0 /100 WBC Normal [facility] Comment on above: Order Comment: Speci men Type: BLOOD SPECIMENOrdering Facility: [facility] Address: [address] [place] [address] Performed By: #### 5 7021-8 ####[facility] LABORATORYCLIA [id number] [address] Platelet mean volume (Bld) [Entitic vol] 10.5 fL Normal 9.0-12.7 [facility] Comment on above: Order Comment: Speci men Type: BLOOD SPECIMENOrdering Facility: [facility] Address: [address] [place] [address] Performed By: #### 5 7021-8 ####[facility] LABORATORYCLIA [id number] [address] [place] Platelets (Bld) [#/Vol] 400 10*3/uL Normal 150-400 [facility] Comment on above: Order Comment: Speci men Type: BLOOD SPECIMENOrdering Facility: [facility] Address: [address] [place] [place] [address] Performed By: #### 5 7021-8 ####[facility] LABORATORYCLIA [id number] [address] [place] RBC (Bld) [#/Vol] 3.49 10*6/uL Low 4.20-6.00 [facility] Comment on above: Order Comment: Speci men Type: BLOOD SPECIMENOrdering Facility: [facility] Address: [address] [place] [address] Performed By: #### 5 7021-8 ####[facility] LABORATORYCLIA [id number] [address] [place] WBC (Bld) [#/Vol] 10.56 10*3/uL Normal 3.70-11.00 [facility] Comment on above: Order Comment: Speci men Type: BLOOD SPECIMENOrdering Facility: [facility] Address: [address] [place] [address] Performed By: #### 5 7021-8 ####[facility] LABORATORYCLIA [id number] [address] CONSULT PROGon 03-16-2022 CONSULT PROG Normal [facility] CT BRAIN WO IVCONon 07-21-[address] BRAIN WO IVCON Normal [facility] Magnesium SerPl-mCncon 07-20 Magnesium [Mass/Vol] 2.4 mg/dL High 1.7-2.3 [facility] Comment on above: Order Comment: Speci men Type: BLOOD SPECIMENOrdering Facility: [facility] Address: [address] [place] [address] Performed By: #### 2 4321-2, , 2777- ####[facility] LABORATORYCLIA [id number] [address] OF [facility] NUTRITIONon 07-20-2021 NUTRITION Normal [facility] Phosphate SerPl-mCncon 07-20 Phosphate [Mass/Vol] 4.1 mg/dL Normal 2.7-4.8 [facility] Comment on above: Order Comment: Speci men Type: BLOOD SPECIMENOrdering Facility: [facility] Address: [address] [place] [address] Performed By: #### 2 4321-2, , 2777 ####[facility] LABORATORYCLIA [id number] [address] [place] aPTT PPPon 07-20-2021 aPTT Coag (PPP) [Time] 53.6 s High 23.0-32.4 [facility] Comment on above: Order Comment: Speci men Type: BLOOD SPECIMENOrdering Facility: [facility] Address: [address] [place] [address] Performed By: #### 1 4979-9 ####[facility] LABORATORYCLIA [id number] [address] [place] Bacteria CSF Culton 07-20-19 22 Bacteria identified Cx Nom (CSF) CULTURE, CSF: No growth 14 days GRAM STAIN: No organisms seen No Polymorphonuclear Leukocytes Rare Mononuclear cells Gram stain performed on cytospun specimen. Normal [facility] Comment on above: Performed By: #### 6 06-4 ####[facility]ATORYCLIA [id number] [place] [address] [place] CONSULT PROGon 07-19-2021 CONSULT PROG Normal [facility] CSF MANUAL DIFFon 07-19-2021 DIF TTL, CSF 100 cells counted Normal [facility] Comment on above: Order Comment: Speci men Type: CEREBROSPINAL FLUIDOrdering Facility: [facility] Address: [address] [place] [address] Performed By: #### L [id number], 17527-4, [id number] ####[facility]ATORYCLIA [id number] [address] [place] EOSIN%, CSF 1 % Normal [facility] Comment on above: Order Comment: Speci men Type: CEREBROSPINAL FLUIDOrdering Facility: [facility] Address: [address] [place] [address] Performed By: #### L [id number], 02119-6, [id number] ####[facility]ATORYCLIA [id number] [place] [address] [place] LYMPH%, CSF 67 % Normal 50-90 [facility] Comment on above: Order Comment: Speci men Type: CEREBROSPINAL FLUIDOrdering Facility: [facility] Address: [address] [place] [address] Performed By: #### L [id number], 69936-8, [id number] ####[facility]ATORYCLIA [id number] [place] [address] [place] MACRO%, CSF 1 % High <1 [facility] Comment on above: Order Comment: Speci men Type: CEREBROSPINAL FLUIDOrdering Facility: [facility] Address: [address] [place] [address] Performed By: #### L [id number], 59437-0, [id number] ####[facility]ATORYCLIA [id number] [place] [address] [place] MONO%, CSF 18 % Normal 10-50 [facility] Comment on above: Order Comment: Speci men Type: CEREBROSPINAL FLUIDOrdering Facility: [facility] Address: [address] [place] [address] Performed By: #### L [id number], 85500-3, [id number] ####[facility]ATORYCLIA [id number] [address] [place] NEUT%, CSF 11 % High 0-3 [facility] Comment on above: Order Comment: Speci men Type: CEREBROSPINAL FLUIDOrdering Facility: [facility] Address: [address] [place] [address] Performed By: #### L [id number], 09450-5, [id number] ####[facility]ATORYCLIA [id number] [address] OTHER CL%, CSF 2 % Normal [facility] Comment on above: Order Comment: Speci men Type: CEREBROSPINAL FLUIDOrdering Facility: [facility] Address: [address] [place] [address] Result Comment: Path review to follow. Performed By: #### L [id number], 31014-7, [id number] ####[facility]ATORYCLIA [id number] [address] CSF PATHOLOGIST INTERP (LAB REFLEX ORDER-NO BILL)on 07-19-2021 CSF STAFF REVIEW Normal [facility] Comment on above: Order Comment: Speci men Type: CEREBROSPINAL FLUIDOrdering Facility: [facility] Address: [address] [place] [address] Performed By: #### L [id number], 75040-1, [id number] ####[facility]ATORYCLIA [id number] [address] Pathologist name Reviewed by Wing Cummings MD [facility] Comment on above: Order Comment: Speci men Type: CEREBROSPINAL FLUIDOrdering Facility: [facility] Address: [address] [place] [address] Performed By: #### L [id number], 84489-2, [id number] ####[facility]ORATORYCLIA [id number] [address] Cell count panel (CSF)on Clarity (CSF) Clear Normal Clear [facility] Comment on above: Order Comment: Speci men Type: CEREBROSPINAL FLUIDOrdering Facility: [facility] Address: [address] [place] [address] Performed By: #### L [id number], 66255-0, [id number] ####[facility]ATORYCLIA [id number] [address] Clarity (Unsp spec) Not Indicated Normal Clear [facility] Comment on above: Order Comment: Speci men Type: CEREBROSPINAL FLUIDOrdering Facility: [facility] Address: [address] [place] [address] Performed By: #### L [id number], 96908-4, [id number] ####[facility]ATORYCLIA [id number] [address] Color (CSF) Colorless Normal Colorless [facility] Comment on above: Order Comment: Speci men Type: CEREBROSPINAL FLUIDOrdering Facility: [facility] Address: [address] [place] [address] Performed By: #### L [id number], 68453-3, [id number] ####[facility]ORATORYCLIA [id number] [address] Color (Spun CSF) Not Indicated Normal Colorless [facility] Comment on above: Order Comment: Speci men Type: CEREBROSPINAL FLUIDOrdering Facility: [facility] Address: [address] [place] [address] Performed By: #### L [id number], 52940-4, [id number] ####[facility]ATORYCLIA [id number] [address] CSF TUBE [employer] Normal [facility] Comment on above: Order Comment: Speci men Type: CEREBROSPINAL FLUIDOrdering Facility: [facility] Address: [address] [place] [address] Performed By: #### L [id number], 70813-5, [id number] ####[facility] LABORATORYCLIA [id number] [address] OF [facility] RBC Manual cnt (CSF) [#/Vol] 0 cells/uL Normal 0-5 [facility] Comment on above: Order Comment: Speci men Type: CEREBROSPINAL FLUIDOrdering Facility: [facility] Address: [address] [place] [address] Performed By: #### L [id number], 58415-6, [id number] ####[facility]ORATORYCLIA [id number] [address] WBC Manual cnt (CSF) [#/Vol] 2 cells/uL Normal 0-5 [facility] Comment on above: Order Comment: Speci men Type: CEREBROSPINAL FLUIDOrdering Facility: [facility] Address: [address] [place] [address] Performed By: #### L [id number], 02974-0, [id number] ####[facility]ORATORYCLIA [id number] [address] [place] Glucose CSF-ncon 2 Glucose (CSF) [Mass/Vol] 69 mg/dL Normal 40-70 [facility] Comment on above: Order Comment: Speci men Type: CEREBROSPINAL FLUIDOrdering Facility: [facility] Address: [address] [place] [address] Result Comment: Lumb ar CSF glucose values of healthy patients are approximately 60% of the plasma values and must always be compared with a concurrently measured plasma value for adequate clinical interpretation.References: 1. Glucose HK (GLUC3) [package insert V 12.0 Armenian]. [employer], [place], [place]. September 2015. 2. Michelle Moore, Loki, H. (2015). Chapter 7: Glucose and Lactate. Marianela Rothman.(eds.), Cerebrospinal Fluid in Clinical Neurology. Miner: Hubub. Performed By: #### 2 342-4, 2880-3 ####[facility] LABORATORYCLIA [id number] [address] [place] NURSING PROGon 07-19-2021 NURSING PROG Normal [facility] NURSING PROG Normal [facility] Prot CSF-mCncon 07-19-2021 Protein (CSF) [Mass/Vol] 51 mg/dL High [facility] Comment on above: Order Comment: Speci men Type: CEREBROSPINAL FLUIDOrdering Facility: [facility] Address: [address] [place] [address] Performed By: #### 2 342-4, 2880-3 ####[facility]ORATORYCLIA [id number] [address] THERAPY NTon 07-19-2021 THERAPY NT Normal [facility] Urinalysis complete panel (U )on 07-19-2021 Bilirubin Ql (U) Negative Normal Negative [facility] Comment on above: Order Comment: Speci men Type: URINE SPECIMENOrdering Facility: [facility] Address: [address] [place] [address] Performed By: #### 2 4356-8 ####[facility] LABORATORYCLIA [id number] [address] Clarity (Unsp spec) Clear Normal Clear [facility] Comment on above: Order Comment: Speci men Type: URINE SPECIMENOrdering Facility: [facility] Address: [address] [place] [address] Performed By: #### 2 4356-8 ####[facility]ORATORYCLIA [id number] [address] [place] Color (U) Colorless Normal yellow [facility] Comment on above: Order Comment: Speci men Type: URINE SPECIMENOrdering Facility: [facility] Address: [address] [place] [address] Performed By: #### 2 4356-8 ####[facility] LABORATORYCLIA [id number] [address] [place] Glucose Test strip (U) [Mass/Vol] Negative Normal Negative [facility] Comment on above: Order Comment: Speci men Type: URINE SPECIMENOrdering Facility: [facility] Address: [address] [place] [address] Performed By: #### 2 4356-8 ####[facility]ATORYCLIA [id number] [address] [place] [facility] Hemoglobin Ql (U) Trace Abnormal Negative [facility] Comment on above: Order Comment: Speci men Type: URINE SPECIMENOrdering Facility: [facility] Address: [address] [place] [address] Performed By: #### 2 4356-8 ####[facility] LABORATORYCLIA [id number] [address] Hyaline casts (Urine sed) [#/Area] 1-3 /LPF Abnormal 0 /LPF [facility] Comment on above: Order Comment: Speci men Type: URINE SPECIMENOrdering Facility: [facility] Address: [address] [place] [address] Performed By: #### 2 4356-8 ####[facility]ORATORYCLIA [id number] [address] [place] [facility] Ketones Ql (U) Negative Normal Negative [facility] Comment on above: Order Comment: Speci men Type: URINE SPECIMENOrdering Facility: [facility] Address: [address] [place] [address] Performed By: #### 2 4356-8 ####[facility]ATORYCLIA [id number] [address] Leukocyte esterase Test strip Ql (U) Negative Normal Negative [facility] Comment on above: Order Comment: Speci men Type: URINE SPECIMENOrdering Facility: [facility] Address: [address] [place] [address] Performed By: #### 2 4356-8 ####[facility]ATORYCLIA [id number] [address] [place] Nitrite Ql (U) Negative Normal Negative [facility] Comment on above: Order Comment: Speci men Type: URINE SPECIMENOrdering Facility: [facility] Address: [address] [place] [address] Performed By: #### 2 4356-8 ####[facility]ORATORYCLIA [id number] [address] pH (U) 7.0 [pH] Normal 5.0-8.0 [facility] Comment on above: Order Comment: Speci men Type: URINE SPECIMENOrdering Facility: [facility] Address: [address] [place] [address] Performed By: #### 2 4356-8 ####[facility]ORATORYCLIA [id number] [address] [place] [facility] Protein (U) [Mass/Vol] Negative Normal Negative [facility] Comment on above: Order Comment: Speci men Type: URINE SPECIMENOrdering Facility: [facility] Address: [address] [place] [address] Performed By: #### 2 4356-8 ####[facility]ORATORYCLIA [id number] [address] [place] [facility] RBC LM.HPF (Urine sed) [#/Area] 6-10 /HPF Abnormal 0-3 /HPF [facility] Comment on above: Order Comment: Speci men Type: URINE SPECIMENOrdering Facility: [facility] Address: [address] [place] [address] Performed By: #### 2 4356-8 ####[facility]ORATORYCLIA [id number] [address] [place] Specific gravity (U) [Rel density] 1.008 Normal 1.005-1.030 [facility] Comment on above: Order Comment: Speci men Type: URINE SPECIMENOrdering Facility: [facility] Address: [address] [place] [address] Performed By: #### 2 4356-8 ####[facility]ORATORYCLIA [id number] [address] [place] Urobilinogen Ql (U) Normal Normal Negative [facility] Comment on above: Order Comment: Speci men Type: URINE SPECIMENOrdering Facility: [facility] Address: [address] [place] [address] Performed By: #### 2 4356-8 ####[facility]ORATORYCLIA [id number] [address] [place] WBC LM.HPF (Urine sed) [#/Area] 0-5 /HPF Normal 0-5 /HPF [facility] Comment on above: Order Comment: Speci men Type: URINE SPECIMENOrdering Facility: [facility] Address: [address] [place] [address] Performed By: #### 2 4356-8 ####[facility]ORATORYCLIA [id number] [address] [place] Vancomycin random [Mass/Vol] on 07-19-2021 Vancomycin [Mass/Vol] 13.9 ug/mL Normal 10.0-20.0 [facility] Comment on above: Order Comment: Speci men Type: BLOOD SPECIMENOrdering Facility: [facility] Address: [address] [place] [address] Result Comment: Refe rence ranges and high/low indicator flags are provided as general guidelines only. The treating physician must determine appropriate target levels/dosing based on the specific clinical situation. Performed By: #### 4 091-5 ####[facility]ORATORYCLIA [id number] [address] [place] [facility] aPTT PPPon 07-19-2021 aPTT Coag (PPP) [Time] 53.9 s High 23.0-32.4 [facility] Comment on above: Order Comment: Speci men Type: BLOOD SPECIMENOrdering Facility: [facility] Address: [address] [place] [address] Performed By: #### 1 4979-9 ####[facility]ORATORYCLIA [id number] [place] [address] [place] Basic metabolic 2000 panelon 07-18-2021 Anion gap [Moles/Vol] 6 mmol/L Low 9-18 [facility] Comment on above: Order Comment: Speci men Type: BLOOD SPECIMENOrdering Facility: [facility] Address: [address] [place] [address] Performed By: #### 2 4321-2, , 2776-05 ####[facility]ORYCLIA [id number] [place] [address] [place] Calcium [Mass/Vol] 9.4 mg/dL Normal 8.5-10.2 [facility] Comment on above: Order Comment: Speci men Type: BLOOD SPECIMENOrdering Facility: [facility] Address: [address] [place] [address] Performed By: #### 2 4321-2, , 2776-05 ####[facility]ORATORYCLIA [id number] [place] [address] [place] Chloride [Moles/Vol] 103 mmol/L Normal 97-105 [facility] Comment on above: Order Comment: Speci men Type: BLOOD SPECIMENOrdering Facility: [facility] Address: [address] [place] [address] Performed By: #### 2 4321-2, , 2776-05 ####[facility]ORATORYCLIA [id number] [place] [address] [place] CO2 [Moles/Vol] 34 mmol/L High 22-30 [facility] Comment on above: Order Comment: Speci men Type: BLOOD SPECIMENOrdering Facility: [facility] Address: [address] [place] [address] Performed By: #### 2 4321-2, , 2776-05 ####[facility]ATORYCLIA [id number] [place] [address] [place] Creatinine [Mass/Vol] 0.75 mg/dL Normal 0.73-1.22 [facility] Comment on above: Order Comment: Speci men Type: BLOOD SPECIMENOrdering Facility: [facility] Address: [address] [place] [address] Performed By: #### 2 4321-2, , 2776-05 ####[facility]ORATORYCLIA [id number] [address] [place] ESTIMATED GLOMERULAR FILTRATION RATE 98 mL/min/1.73m??? Normal >=60 [facility] Comment on above: Order Comment: Shira feldman Type: BLOOD SPECIMENOrdering Facility: [facility] Address: [address] [place] [address] Result Comment: Luzmaria mated Glomerular Filtration Rate [...] 2 4321-2, , 2776-05 ####[facility]ATORYCLIA [id number] [place] [address] [place] Glucose [Mass/Vol] 125 mg/dL High 74-99 [facility] Comment on above: Order Comment: Shira feldman Type: BLOOD SPECIMENOrdering Facility: [facility] Address: [address] [place] [address] Result Comment: The [place] Diabetes Association (ADA) provides guidance for cutoff [...] Standards of Medical Care in Diabetes 2016, [place] [employer]. Diabetes Care. 2016.39(Suppl 1). Performed By: #### 2 4321-2, , 2776-05 ####[facility]ORATORYCLIA [id number] [place] [address] [place] Potassium [Moles/Vol] 4.4 mmol/L Normal 3.7-5.1 [facility] Comment on above: Order Comment: Speci men Type: BLOOD SPECIMENOrdering Facility: [facility] Address: [address] [place] [address] Performed By: #### 2 4321-2, , 2776-05 ####[facility]ATORYCLIA [id number] [place] [address] [place] Sodium [Moles/Vol] 143 mmol/L Normal 136-144 [facility] Comment on above: Order Comment: Speci men Type: BLOOD SPECIMENOrdering Facility: [facility] Address: [address] [place] [address] Performed By: #### 2 432-2, , 2776-05 ####[facility]ATORYCLIA [id number] [address] [place] Urea nitrogen [Mass/Vol] 33 mg/dL High 9-24 [facility] Comment on above: Order Comment: Speci men Type: BLOOD SPECIMENOrdering Facility: [facility] Address: [address] [place] [address] Performed By: #### 2 4321-2, , 2776-05 ####[facility]ORATORYCLIA [id number] [address] [place] CASE MANAGEMon 07-18-2021 CASE MANAGEM Normal [facility] CBC W Auto Differential pane l (Bld)on 07-18-2021 Basophils (Bld) [#/Vol] 0.05 10*3/uL Normal <0.11 [facility] Comment on above: Order Comment: Speci men Type: BLOOD SPECIMENOrdering Facility: [facility] Address: [address] [place] [address] Performed By: #### 5 7021-8 ####[facility] [id number] [address] [place] Basophils/100 WBC (Bld) 0.5 % Normal [facility] Comment on above: Order Comment: Speci men Type: BLOOD SPECIMENOrdering Facility: [facility] Address: [address] [place] [address] Performed By: #### 5 7021-8 ####[facility]ORYCLIA [id number] [address] Differential cell count method Nom (Bld) Auto Normal [facility] Comment on above: Order Comment: Speci men Type: BLOOD SPECIMENOrdering Facility: [facility] Address: [address] [place] [address] Performed By: #### 5 7021-8 ####[facility]ATORYCLIA [id number] [address] [place] Eosinophils (Bld) [#/Vol] 0.44 10*3/uL Normal <0.46 [facility] Comment on above: Order Comment: Speci men Type: BLOOD SPECIMENOrdering Facility: [facility] Address: [address] [place] [address] Performed By: #### 5 7021-8 ####[facility]ATORYCLIA [id number] [address] Eosinophils/100 WBC (Bld) 4.3 % Normal [facility] Comment on above: Order Comment: Speci men Type: BLOOD SPECIMENOrdering Facility: [facility] Address: [address] [place] [address] Performed By: #### 5 7021-8 ####[facility]ORATORYCLIA [id number] [address] Erythrocyte distribution width (RBC) [Ratio] 16.6 % High 11.5-15.0 [facility] Comment on above: Order Comment: Speci men Type: BLOOD SPECIMENOrdering Facility: [facility] Address: [address] [place] [address] Performed By: #### 5 7021-8 ####[facility]ORATORYCLIA [id number] [address] Hematocrit (Bld) [Volume fraction] 32.2 % Low 39.0-51.0 [facility] Comment on above: Order Comment: Speci men Type: BLOOD SPECIMENOrdering Facility: [facility] Address: [address] [place] [address] Performed By: #### 5 7021-8 ####[facility] LABORATORYCLIA [id number] [address] Hemoglobin (Bld) [Mass/Vol] 9.5 g/dL Low 13.0-17.0 [facility] Comment on above: Order Comment: Speci men Type: BLOOD SPECIMENOrdering Facility: [facility] [facility] Address: [address] [place] [address] Performed By: #### 5 7021-8 ####[facility] LABORATORYCLIA [id number] [address] IMMATURE GRAN % 0.4 % Normal [facility] Comment on above: Order Comment: Speci men Type: BLOOD SPECIMENOrdering Facility: [facility] Address: [address] [place] [address] Performed By: #### 5 7021-8 ####[facility] LABORATORYCLIA [id number] [address] IMMATURE GRAN ABS 0.04 k/uL Normal <0.10 [facility] Comment on above: Order Comment: Speci men Type: BLOOD SPECIMENOrdering Facility: [facility] Address: [address] [place] [address] Performed By: #### 5 7021-8 ####[facility] LABORATORYCLIA [id number] [address] Lymphocytes (Bld) [#/Vol] 1.71 10*3/uL Normal 1.00-4.00 [facility] Comment on above: Order Comment: Speci men Type: BLOOD SPECIMENOrdering Facility: [facility] Address: [address] [place] [address] Performed By: #### 5 7021-8 ####[facility] LABORATORYCLIA [id number] [address] Lymphocytes/100 WBC (Bld) 16.9 % Normal [facility] Comment on above: Order Comment: Speci men Type: BLOOD SPECIMENOrdering Facility: [facility] Address: [address] [place] [address] Performed By: #### 5 7021-8 ####[facility] LABORATORYCLIA [id number] [address] MCH (RBC) [Entitic mass] 27.9 pg Normal 26.0-34.0 [facility] Comment on above: Order Comment: Speci men Type: BLOOD SPECIMENOrdering Facility: [facility] Address: [address] [place] [address] Performed By: #### 5 7021-8 ####[facility] LABORATORYCLIA [id number] [address] [place] [facility] MCHC (RBC) [Mass/Vol] 29.5 g/dL Low 30.5-36.0 [facility] Comment on above: Order Comment: Speci men Type: BLOOD SPECIMENOrdering Facility: [facility] Address: [address] [place] [address] Performed By: #### 5 7021-8 ####[facility] LABORATORYCLIA [id number] [address] [place] [facility] MCV (RBC) [Entitic vol] 94.7 fL Normal 80.0-100.0 [facility] Comment on above: Order Comment: Speci men Type: BLOOD SPECIMENOrdering Facility: [facility] Address: [address] [place] [address] Performed By: #### 5 7021-8 ####[facility] LABORATORYCLIA [id number] [place] [address] [place] Monocytes (Bld) [#/Vol] 0.69 10*3/uL Normal <0.87 [facility] Comment on above: Order Comment: Speci men Type: BLOOD SPECIMENOrdering Facility: [facility] Address: [address] [address] Performed By: #### 5 7021-8 ####[facility] LABORATORYCLIA [id number] [address] [place] Monocytes/100 WBC (Bld) 6.8 % Normal [facility] Comment on above: Order Comment: Speci men Type: BLOOD SPECIMENOrdering Facility: [facility] Address: [address] [place] [address] Performed By: #### 5 7021-8 ####[facility] LABORATORYCLIA [id number] [address] [place] Neutrophils (Bld) [#/Vol] 7.19 10*3/uL Normal 1.45-7.50 [facility] Comment on above: Order Comment: Speci men Type: BLOOD SPECIMENOrdering Facility: [facility] Address: [address] [place] [address] Performed By: #### 5 7021-8 ####[facility] LABORATORYCLIA [id number] [address] [place] Neutrophils/100 WBC (Bld) 71.1 % Normal [facility] Comment on above: Order Comment: Speci men Type: BLOOD SPECIMENOrdering Facility: [facility] Address: [address] [address] Performed By: #### 5 7021-8 ####[facility]ORATORYCLIA [id number] [place] [address] [place] Nucleated RBC (Bld) [#/Vol] 10*3/uL Normal <0.01 [facility] Comment on above: Order Comment: Speci men Type: BLOOD SPECIMENOrdering Facility: [facility] Address: [address] [place] [address] Performed By: #### 5 7021-8 ####[facility] LABORATORYCLIA [id number] [address] [place] Nucleated RBC/100 WBC (Bld) [Ratio] 0.0 /100 WBC Normal [facility] Comment on above: Order Comment: Speci men Type: BLOOD SPECIMENOrdering Facility: [facility] Address: [address] [place] [address] Performed By: #### 5 7021-8 ####[facility] LABORATORYCLIA [id number] [address] [place] Platelet mean volume (Bld) [Entitic vol] 10.3 fL Normal 9.0-12.7 [facility] Comment on above: Order Comment: Speci men Type: BLOOD SPECIMENOrdering Facility: [facility] Address: [address] [place] [address] Performed By: #### 5 7021-8 ####[facility] LABORATORYCLIA [id number] [address] [place] Platelets (Bld) [#/Vol] 403 10*3/uL High 150-400 [facility] Comment on above: Order Comment: Speci men Type: BLOOD SPECIMENOrdering Facility: [facility] Address: [address] [place] [address] Performed By: #### 5 7021-8 ####[facility] LABORATORYCLIA [id number] [address] [place] RBC (Bld) [#/Vol] 3.40 10*6/uL Low 4.20-6.00 [facility] Comment on above: Order Comment: Speci men Type: BLOOD SPECIMENOrdering Facility: [facility] Address: [address] [place] [address] Performed By: #### 5 7021-8 ####[facility] LABORATORYCLIA [id number] [address] [place] WBC (Bld) [#/Vol] 10.12 10*3/uL Normal 3.70-11.00 [facility] Comment on above: Order Comment: Speci men Type: BLOOD SPECIMENOrdering Facility: [facility] Address: [address] [place] [address] Performed By: #### 5 7021-8 ####[facility] LABORATORYCLIA [id number] [address] OF [facility] Magnesium SerPl-mCncon 07-18 Magnesium [Mass/Vol] 2.4 mg/dL High 1.7-2.3 [facility] Comment on above: Order Comment: Speci men Type: BLOOD SPECIMENOrdering Facility: [facility] Address: [address] [place] [address] Performed By: #### 2 4321-2, 50307-2, 2777-1 ####[facility]ITALCLIA [id number] [address] OF [facility] NURSING PROGon 07-18-2021 NURSING PROG Normal [facility] NURSING PROG Normal [facility] Phosphate SerPl-mCncon 07-18 Phosphate [Mass/Vol] 3.9 mg/dL Normal 2.7-4.8 [facility] Comment on above: Order Comment: Speci men Type: BLOOD SPECIMENOrdering Facility: [facility] Address: [address] [place] [address] Performed By: #### 2 4321-2, 39863-9, 2777-1 ####[facility] LABORATORYCLIA [id number] [address] [place] THERAPY NTon 07-18-2021 THERAPY NT Normal [facility] aPTT PPPon 07-18-2021 aPTT Coag (PPP) [Time] 52.3 s High 23.0-32.4 [facility] Comment on above: Order Comment: Speci men Type: BLOOD SPECIMENOrdering Facility: [facility] Address: [address] [place] [address] Performed By: #### 1 4979-9 ####[facility] LABORATORYCLIA [id number] [address] OF [facility] CBC W Auto Differential pane l (Bld)on 07-17-2021 Basophils (Bld) [#/Vol] 0.05 10*3/uL Normal <0.11 [facility] Comment on above: Order Comment: Speci men Type: BLOOD SPECIMENOrdering Facility: [facility] Address: [address] [place] [address] Performed By: #### 5 7021-8 ####[facility] LABORATORYCLIA [id number] [address] Basophils/100 WBC (Bld) 0.5 % Normal [facility] Comment on above: Order Comment: Speci men Type: BLOOD SPECIMENOrdering Facility: [facility] Address: [address] [place] [address] Performed By: #### 5 7021-8 ####[facility] LABORATORYCLIA [id number] [address] Differential cell count method Nom (Bld) Auto Normal [facility] Comment on above: Order Comment: Speci men Type: BLOOD SPECIMENOrdering Facility: [facility] Address: [address] [place] [address] Performed By: #### 5 7021-8 ####[facility] LABORATORYCLIA [id number] [address] [place] Eosinophils (Bld) [#/Vol] 0.32 10*3/uL Normal <0.46 [facility] Comment on above: Order Comment: Speci men Type: BLOOD SPECIMENOrdering Facility: [facility] Address: [address] [place] [address] Performed By: #### 5 7021-8 ####[facility] LABORATORYCLIA [id number] [address] Eosinophils/100 WBC (Bld) 3.4 % Normal [facility] Comment on above: Order Comment: Speci men Type: BLOOD SPECIMENOrdering Facility: [facility] Address: [address] [place] [address] Performed By: #### 5 7021-8 ####[facility] LABORATORYCLIA [id number] [address] Erythrocyte distribution width (RBC) [Ratio] 16.6 % High 11.5-15.0 [facility] Comment on above: Order Comment: Speci men Type: BLOOD SPECIMENOrdering Facility: [facility] Address: [address] [place] [address] Performed By: #### 5 7021-8 ####[facility] LABORATORYCLIA [id number] [address] Hematocrit (Bld) [Volume fraction] 30.7 % Low 39.0-51.0 [facility] Comment on above: Order Comment: Speci men Type: BLOOD SPECIMENOrdering Facility: [facility] Address: [address] [place] [address] Performed By: #### 5 7021-8 ####[facility] LABORATORYCLIA [id number] [address] Hemoglobin (Bld) [Mass/Vol] 9.0 g/dL Low 13.0-17.0 [facility] Comment on above: Order Comment: Speci men Type: BLOOD SPECIMENOrdering Facility: [facility] Address: [address] [place] [address] Performed By: #### 5 7021-8 ####[facility] LABORATORYCLIA [id number] [address] [place] [facility] IMMATURE GRAN % 0.6 % Normal [facility] Comment on above: Order Comment: Speci men Type: BLOOD SPECIMENOrdering Facility: [facility] Address: [address] [place] [address] Performed By: #### 5 7021-8 ####[facility] LABORATORYCLIA [id number] [address] IMMATURE GRAN ABS 0.06 k/uL Normal <0.10 [facility] Comment on above: Order Comment: Speci men Type: BLOOD SPECIMENOrdering Facility: [facility] Address: [address] [place] [address] Performed By: #### 5 7021-8 ####[facility] LABORATORYCLIA [id number] [address] Lymphocytes (Bld) [#/Vol] 1.61 10*3/uL Normal 1.00-4.00 [facility] Comment on above: Order Comment: Speci men Type: BLOOD SPECIMENOrdering Facility: [facility] Address: [address] [place] [address] Performed By: #### 5 7021-8 ####[facility] LABORATORYCLIA [id number] [address] Lymphocytes/100 WBC (Bld) 17.3 % Normal [facility] Comment on above: Order Comment: Speci men Type: BLOOD SPECIMENOrdering Facility: [facility] Address: [address] [place] [address] Performed By: #### 5 7021-8 ####[facility] LABORATORYCLIA [id number] [address] STATES OF [facility] MCH (RBC) [Entitic mass] 26.9 pg Normal 26.0-34.0 [facility] Comment on above: Order Comment: Speci men Type: BLOOD SPECIMENOrdering Facility: [facility] Address: [address] [place] [address] Performed By: #### 5 7021-8 ####[facility] LABORATORYCLIA [id number] [address] [place] MCHC (RBC) [Mass/Vol] 29.3 g/dL Low 30.5-36.0 [facility] Comment on above: Order Comment: Speci men Type: BLOOD SPECIMENOrdering Facility: [facility] Address: [address] [place] [address] Performed By: #### 5 7021-8 ####[facility] LABORATORYCLIA [id number] [place] [address] [place] MCV (RBC) [Entitic vol] 91.9 fL Normal 80.0-100.0 [facility] Comment on above: Order Comment: Speci men Type: BLOOD SPECIMENOrdering Facility: [facility] Address: [address] [place] [address] Performed By: #### 5 7021-8 ####[facility] LABORATORYCLIA [id number] [place] [address] [place] Monocytes (Bld) [#/Vol] 0.61 10*3/uL Normal <0.87 [facility] Comment on above: Order Comment: Speci men Type: BLOOD SPECIMENOrdering Facility: [facility] Address: [address] [place] [address] Performed By: #### 5 7021-8 ####[facility] LABORATORYCLIA [id number] [address] [place] Monocytes/100 WBC (Bld) 6.6 % Normal [facility] Comment on above: Order Comment: Speci men Type: BLOOD SPECIMENOrdering Facility: [facility] Address: [address] [place] [address] Performed By: #### 5 7021-8 ####[facility] LABORATORYCLIA [id number] [address] [place] Neutrophils (Bld) [#/Vol] 6.64 10*3/uL Normal 1.45-7.50 [facility] Comment on above: Order Comment: Speci men Type: BLOOD SPECIMENOrdering Facility: [facility] Address: [address] [place] [address] Performed By: #### 5 7021-8 ####[facility]ORATORYCLIA [id number] [address] [place] Neutrophils/100 WBC (Bld) 71.6 % Normal [facility] Comment on above: Order Comment: Speci men Type: BLOOD SPECIMENOrdering Facility: [facility] Address: [address] [place] [address] Performed By: #### 5 7021-8 ####[facility] LABORATORYCLIA [id number] [address] [place] Nucleated RBC (Bld) [#/Vol] 10*3/uL Normal <0.01 [facility] Comment on above: Order Comment: Speci men Type: BLOOD SPECIMENOrdering Facility: [facility] Address: [address] [place] [address] Performed By: #### 5 7021-8 ####[facility] LABORATORYCLIA [id number] [address] [place] Nucleated RBC/100 WBC (Bld) [Ratio] 0.0 /100 WBC Normal [facility] Comment on above: Order Comment: Speci men Type: BLOOD SPECIMENOrdering Facility: [facility] Address: [address] [place] [address] Performed By: #### 5 7021-8 ####[facility] LABORATORYCLIA [id number] [address] [place] Platelet mean volume (Bld) [Entitic vol] 10.1 fL Normal 9.0-12.7 [facility] Comment on above: Order Comment: Speci men Type: BLOOD SPECIMENOrdering Facility: [facility] Address: [address] [place] [address] Performed By: #### 5 7021-8 ####[facility] LABORATORYCLIA [id number] [address] [place] Platelets (Bld) [#/Vol] 387 10*3/uL Normal 150-400 [facility] Comment on above: Order Comment: Speci men Type: BLOOD SPECIMENOrdering Facility: [facility] Address: [address] [place] [address] Performed By: #### 5 7021-8 ####[facility] LABORATORYCLIA [id number] [address] [place] RBC (Bld) [#/Vol] 3.34 10*6/uL Low 4.20-6.00 [facility] Comment on above: Order Comment: Speci men Type: BLOOD SPECIMENOrdering Facility: [facility] Address: [address] [place] [address] Performed By: #### 5 7021-8 ####[facility] LABORATORYCLIA [id number] [address] WBC (Bld) [#/Vol] 9.29 10*3/uL Normal 3.70-11.00 [facility] Comment on above: Order Comment: Speci men Type: BLOOD SPECIMENOrdering Facility: [facility] Address: [address] [place] [address] Performed By: #### 5 7021-8 ####[facility] LABORATORYCLIA [id number] [address] CONSULT PROGon 07-17-2021 CONSULT PROG Normal [facility] Magnesium SerPl-mCncon 07-17 Magnesium [Mass/Vol] 2.3 mg/dL Normal 1.7-2.3 [facility] Comment on above: Order Comment: Speci men Type: BLOOD SPECIMENOrdering Facility: [facility] Address: [address] [place] [address] Performed By: #### 2 777-1, 70127-5 ####[facility] LABORATORYCLIA [id number] [address] NURSING PROGon 07-17-2021 NURSING PROG Normal [facility] NURSING PROG Normal [facility] NURSING PROG Normal [facility] Phosphate SerPl-mCncon 07-17 Phosphate [Mass/Vol] 3.6 mg/dL Normal 2.7-4.8 [facility] Comment on above: Order Comment: Speci men Type: BLOOD SPECIMENOrdering Facility: [facility] Address: [address] [place] [address] Performed By: #### 2 777-1, 35168-9 ####[facility] LABORATORYCLIA [id number] [address] [place] aPTT PPPon 07-17-2021 aPTT Coag (PPP) [Time] 57.2 s High 23.0-32.4 [facility] Comment on above: Order Comment: Speci men Type: BLOOD SPECIMENOrdering Facility: [facility] Address: [address] [place] [address] Performed By: #### 1 4979-9 ####[facility] LABORATORYCLIA [id number] [place] [address] [place] Basic metabolic 2000 panelon 07-16-2021 Anion gap [Moles/Vol] 5 mmol/L Low 9-18 [facility] Comment on above: Order Comment: Speci men Type: BLOOD SPECIMENOrdering Facility: [facility] Address: [address] [place] [address] Performed By: #### 2 777-1, 05543-8, ####[facility] LABORATORYCLIA [id number] [place] [address] [place] Calcium [Mass/Vol] 9.1 mg/dL Normal 8.5-10.2 [facility] Comment on above: Order Comment: Speci men Type: BLOOD SPECIMENOrdering Facility: [facility] Address: [address] [place] [address] Performed By: #### 2 777-1, 78263-7, ####[facility] LABORATORYCLIA [id number] [place] [address] [place] Chloride [Moles/Vol] 101 mmol/L Normal 97-105 [facility] Comment on above: Order Comment: Speci men Type: BLOOD SPECIMENOrdering Facility: [facility] Address: [address] [place] [address] Performed By: #### 2 777-1, 41257-3, ####[facility] LABORATORYCLIA [id number] [place] [address] [place] CO2 [Moles/Vol] 35 mmol/L High 22-30 [facility] Comment on above: Order Comment: Speci men Type: BLOOD SPECIMENOrdering Facility: [facility] Address: [address] [place] [address] Performed By: #### 2 777-1, 03299-9, ####[facility] [id number] [place] [id number] [place] Creatinine [Mass/Vol] 0.73 mg/dL Normal 0.73-1.22 [facility] Comment on above: Order Comment: Speci men Type: BLOOD SPECIMENOrdering Facility: [facility] Address: [address] [place] [address] Performed By: #### 2 777-1, 36101-6, ####[facility]ENTERIA [id number] [address] [place] ESTIMATED GLOMERULAR FILTRATION RATE 98 mL/min/1.73m??? Normal >=60 [facility] Comment on above: Order Comment: Speci men Type: BLOOD SPECIMENOrdering Facility: [facility] Address: [address] [place] [address] Result Comment: Luzmaria mated Glomerular Filtration Rate [...] actual GFR. Performed By: #### 2 777-1, 40669-9, ####[facility] LABORATORYIA [id number] [place] [address] [place] Glucose [Mass/Vol] 133 mg/dL High 74-99 [facility] Comment on above: Order Comment: Speci men Type: BLOOD SPECIMENOrdering Facility: [facility] Address: [address] [place] [address] Result Comment: The [place] [employer] (ADA) provides guidance for cutoff [...] Standards of Medical Care in Diabetes 2016, [place] [employer]. Diabetes Care. 2016.39(Suppl 1). Performed By: #### 2 777-1, 29751-0, ####[facility] LABORATORYCLIA [id number] [place] [address] [place] Potassium [Moles/Vol] 4.2 mmol/L Normal 3.7-5.1 [facility] Comment on above: Order Comment: Shira feldman Type: BLOOD SPECIMENOrdering Facility: [facility] Address: [address] [place] [address] Performed By: #### 2 777-1, , ####[facility] LABORATORYCLIA [id number] [place] [address] [place] Sodium [Moles/Vol] 141 mmol/L Normal 136-144 [facility] Comment on above: Order Comment: Shira feldman Type: BLOOD SPECIMENOrdering Facility: [facility] Address: [address] [place] [address] Performed By: #### 2 777-1, , ####[facility] LABORATORYCLIA [id number] [place] [address] [place] Urea nitrogen [Mass/Vol] 21 mg/dL Normal 9-24 [facility] Comment on above: Order Comment: Shira feldman Type: BLOOD SPECIMENOrdering Facility: [facility] Address: [address] [address] Performed By: #### 2 777-1, , ####[facility] LABORATORYCLIA [id number] [address] STATES OF [facility] CBC W Auto Differential pane l (Bld)on 07-16-2021 Basophils (Bld) [#/Vol] 0.06 10*3/uL Normal <0.11 [facility] Comment on above: Order Comment: Speci men Type: BLOOD SPECIMENOrdering Facility: [facility] Address: [address] [place] [address] Performed By: #### 5 7021-8 ####[facility] LABORATORYCLIA [id number] [address] Basophils/100 WBC (Bld) 0.7 % Normal [facility] Comment on above: Order Comment: Speci men Type: BLOOD SPECIMENOrdering Facility: [facility] Address: [address] [place] [address] Performed By: #### 5 7021-8 ####[facility] LABORATORYCLIA [id number] [address] Differential cell count method Nom (Bld) Auto Normal [facility] Comment on above: Order Comment: Speci men Type: BLOOD SPECIMENOrdering Facility: [facility] Address: [address] [place] [address] Performed By: #### 5 7021-8 ####[facility] LABORATORYCLIA [id number] [address] [place] Eosinophils (Bld) [#/Vol] 0.35 10*3/uL Normal <0.46 [facility] Comment on above: Order Comment: Speci men Type: BLOOD SPECIMENOrdering Facility: [facility] Address: [address] [address] Performed By: #### 5 7021-8 ####[facility] LABORATORYCLIA [id number] [address] Eosinophils/100 WBC (Bld) 3.9 % Normal [facility] Comment on above: Order Comment: Speci men Type: BLOOD SPECIMENOrdering Facility: [facility] Address: [address] [place] [address] Performed By: #### 5 7021-8 ####[facility] LABORATORYCLIA [id number] [address] Erythrocyte distribution width (RBC) [Ratio] 16.5 % High 11.5-15.0 [facility] Comment on above: Order Comment: Speci men Type: BLOOD SPECIMENOrdering Facility: [facility] Address: [address] [place] [address] Performed By: #### 5 7021-8 ####[facility] LABORATORYCLIA [id number] [address] Hematocrit (Bld) [Volume fraction] 30.9 % Low 39.0-51.0 [facility] Comment on above: Order Comment: Speci men Type: BLOOD SPECIMENOrdering Facility: [facility] Address: [address] [place] [address] Performed By: #### 5 7021-8 ####[facility] LABORATORYCLIA [id number] [address] Hemoglobin (Bld) [Mass/Vol] 9.1 g/dL Low 13.0-17.0 [facility] Comment on above: Order Comment: Speci men Type: BLOOD SPECIMENOrdering Facility: [facility] Address: [address] [place] [address] Performed By: #### 5 7021-8 ####[facility] LABORATORYCLIA [id number] [address] IMMATURE GRAN % 0.4 % Normal [facility] Comment on above: Order Comment: Speci men Type: BLOOD SPECIMENOrdering Facility: [facility] Address: [address] [place] [address] Performed By: #### 5 7021-8 ####[facility] LABORATORYCLIA [id number] [address] IMMATURE GRAN ABS 0.04 k/uL Normal <0.10 [facility] Comment on above: Order Comment: Speci men Type: BLOOD SPECIMENOrdering Facility: [facility] Address: [address] [place] [address] Performed By: #### 5 7021-8 ####[facility] LABORATORYCLIA [id number] [address] Lymphocytes (Bld) [#/Vol] 1.35 10*3/uL Normal 1.00-4.00 [facility] Comment on above: Order Comment: Speci men Type: BLOOD SPECIMENOrdering Facility: [facility] Address: [address] [place] [address] Performed By: #### 5 7021-8 ####[facility] LABORATORYCLIA [id number] [address] Lymphocytes/100 WBC (Bld) 15.0 % Normal [facility] Comment on above: Order Comment: Speci men Type: BLOOD SPECIMENOrdering Facility: [facility] Address: [address] [place] [address] Performed By: #### 5 7021-8 ####[facility] LABORATORYCLIA [id number] [address] STATES [facility] MCH (RBC) [Entitic mass] 27.1 pg Normal 26.0-34.0 [facility] Comment on above: Order Comment: Speci men Type: BLOOD SPECIMENOrdering Facility: [facility] Address: [address] [place] [address] Performed By: #### 5 7021-8 ####[facility] LABORATORYCLIA [id number] [address] [place] MCHC (RBC) [Mass/Vol] 29.4 g/dL Low 30.5-36.0 [facility] Comment on above: Order Comment: Speci men Type: BLOOD SPECIMENOrdering Facility: [facility] Address: [address] [place] [address] Performed By: #### 5 7021-8 ####[facility] LABORATORYCLIA [id number] [place] [address] [place] MCV (RBC) [Entitic vol] 92.0 fL Normal 80.0-100.0 [facility] Comment on above: Order Comment: Speci men Type: BLOOD SPECIMENOrdering Facility: [facility] Address: [address] [place] [address] Performed By: #### 5 7021-8 ####[facility] LABORATORYCLIA [id number] [place] [address] [place] Monocytes (Bld) [#/Vol] 0.53 10*3/uL Normal <0.87 [facility] Comment on above: Order Comment: Speci men Type: BLOOD SPECIMENOrdering Facility: [facility] Address: [address] [place] [address] Performed By: #### 5 7021-8 ####[facility] LABORATORYCLIA [id number] [address] [place] Monocytes/100 WBC (Bld) 5.9 % Normal [facility] Comment on above: Order Comment: Speci men Type: BLOOD SPECIMENOrdering Facility: [facility] Address: [address] [place] [address] Performed By: #### 5 7021-8 ####[facility] LABORATORYCLIA [id number] [address] [place] Neutrophils (Bld) [#/Vol] 6.67 10*3/uL Normal 1.45-7.50 [facility] Comment on above: Order Comment: Speci men Type: BLOOD SPECIMENOrdering Facility: [facility] Address: [address] [place] [address] Performed By: #### 5 7021-8 ####[facility] LABORATORYCLIA [id number] [address] [place] Neutrophils/100 WBC (Bld) 74.1 % Normal [facility] Comment on above: Order Comment: Speci men Type: BLOOD SPECIMENOrdering Facility: [facility] Address: [address] [place] [address] Performed By: #### 5 7021-8 ####[facility] LABORATORYCLIA [id number] [place] [address] [place] Nucleated RBC (Bld) [#/Vol] 10*3/uL Normal <0.01 [facility] Comment on above: Order Comment: Speci men Type: BLOOD SPECIMENOrdering Facility: [facility] Address: [address] [place] [address] Performed By: #### 5 7021-8 ####[facility] LABORATORYCLIA [id number] [address] [place] Nucleated RBC/100 WBC (Bld) [Ratio] 0.0 /100 WBC Normal [facility] Comment on above: Order Comment: Speci men Type: BLOOD SPECIMENOrdering Facility: [facility] Address: [address] [place] [address] Performed By: #### 5 7021-8 ####[facility] LABORATORYCLIA [id number] [address] [place] Platelet mean volume (Bld) [Entitic vol] 9.9 fL Normal 9.0-12.7 [facility] Comment on above: Order Comment: Speci men Type: BLOOD SPECIMENOrdering Facility: [facility] Address: [address] [place] [address] Performed By: #### 5 7021-8 ####[facility] LABORATORYCLIA [id number] [address] [place] Platelets (Bld) [#/Vol] 391 10*3/uL Normal 150-400 [facility] Comment on above: Order Comment: Speci men Type: BLOOD SPECIMENOrdering Facility: [facility] Address: [address] [place] [address] Performed By: #### 5 7021-8 ####[facility] LABORATORYCLIA [id number] [place] [address] [place] RBC (Bld) [#/Vol] 3.36 10*6/uL Low 4.20-6.00 [facility] Comment on above: Order Comment: Speci men Type: BLOOD SPECIMENOrdering Facility: [facility] Address: [address] [place] [address] Performed By: #### 5 7021-8 ####[facility] LABORATORYCLIA [id number] [address] WBC (Bld) [#/Vol] 9.00 10*3/uL Normal 3.70-11.00 [facility] Comment on above: Order Comment: Speci men Type: BLOOD SPECIMENOrdering Facility: [facility] Address: [address] [place] [address] Performed By: #### 5 7021-8 ####[facility] LABORATORYCLIA [id number] [address] CONSULT PROGon 07-16-2021 CONSULT PROG Normal [facility] CONSULT PROG Normal [facility] Magnesium SerPl-mCncon 07-16 Magnesium [Mass/Vol] 2.3 mg/dL Normal 1.7-2.3 [facility] Comment on above: Order Comment: Speci men Type: BLOOD SPECIMENOrdering Facility: [facility] Address: [address] [place] [address] Performed By: #### 2 777-1, 58359-5, ####[facility] LABORATORYCLIA [id number] [address] NURSING PROGon 07-16-2021 NURSING PROG Normal [facility] Phosphate SerPl-mCncon 07-16 Phosphate [Mass/Vol] 3.6 mg/dL Normal 2.7-4.8 [facility] Comment on above: Order Comment: Speci men Type: BLOOD SPECIMENOrdering Facility: [facility] Address: [address] [place] [address] Performed By: #### 2 777-1, 17596-4, ####[facility] LABORATORYCLIA [id number] [address] Vancomycin random [Mass/Vol] on 07-16-2021 Vancomycin [Mass/Vol] 16.9 ug/mL Normal 10.0-20.0 [facility] Comment on above: Order Comment: Speci men Type: BLOOD SPECIMENOrdering Facility: [facility] Address: [address] [address] Result Comment: Refe rence ranges and high/low indicator flags are provided as general guidelines only. The treating physician must determine appropriate target levels/dosing based on the specific clinical situation. Performed By: #### 4 091-5 ####[facility] LABORATORYCLIA [id number] [address] OF [facility] aPTT PPPon 07-16-2021 aPTT Coag (PPP) [Time] 57.2 s High 23.0-32.4 [facility] Comment on above: Order Comment: Speci men Type: BLOOD SPECIMENOrdering Facility: [facility] Address: [address] [place] [address] Performed By: #### 1 4979-9 ####[facility] LABORATORYCLIA [id number] [address] [place] ALLIED HEALTHon 07-15-2021 ALLIED HEALTH Normal [facility] Basic metabolic 2000 panelon 07-15-2021 Anion gap [Moles/Vol] 11 mmol/L Normal 9-18 [facility] Comment on above: Order Comment: Speci men Type: BLOOD SPECIMENOrdering Facility: [facility] Address: [address] [place], [place] [address] [place] [address] Performed By: #### 2 4321-2, , 2777-1 ####[facility] LABORATORYCLIA [id number] [address] STATES OF [facility] Calcium [Mass/Vol] 8.8 mg/dL Normal 8.5-10.2 [facility] Comment on above: Order Comment: Speci men Type: BLOOD SPECIMENOrdering Facility: [facility] Address: [address] [place], [place] [address] [address] Performed By: #### 2 4321-2, , 2776-05 ####[facility] LABORATORYCLIA [id number] [place] [address] [place] Chloride [Moles/Vol] 101 mmol/L Normal 97-105 [facility] Comment on above: Order Comment: Speci men Type: BLOOD SPECIMENOrdering Facility: [facility] Address: [address] [place] [address] Performed By: #### 2 4321-2, , 2776-05 ####[facility] LABORATORYCLIA [id number] [address] [place] [id number] [place] CO2 [Moles/Vol] 31 mmol/L High 22-30 [facility] Comment on above: Order Comment: Speci men Type: BLOOD SPECIMENOrdering Facility: [facility] Address: [address] [place] [address] Performed By: #### 2 432-2, , 2776-05 ####[facility] [id number] [address] Creatinine [Mass/Vol] 0.76 mg/dL Normal 0.73-1.22 [facility] Comment on above: Order Comment: Speci men Type: BLOOD SPECIMENOrdering Facility: [facility] Address: [address] [place] [address] Performed By: #### 2 4321-2, , 2776-05 ####[facility] [id number] [address] ESTIMATED GLOMERULAR FILTRATION RATE 97 mL/min/1.73m??? Normal >=60 [facility] Comment on above: Order Comment: Speci men Type: BLOOD SPECIMENOrdering Facility: [facility] Address: [address] [place] [address] Result Comment: Luzmaria mated Glomerular Filtration Rate [...] 2 4321-2, , 2776-05 ####[facility] LABORATORYCLIA [id number] [place] [address] [place] Glucose [Mass/Vol] 115 mg/dL High 74-99 [facility] Comment on above: Order Comment: Shira feldman Type: BLOOD SPECIMENOrdering Facility: [facility] Address: [address] [phone] Result Comment: The [place] [employer] (ADA) provides guidance for cutoff [...] Standards of Medical Care in Diabetes 2016, [place] [employer]. Diabetes Care. 2016.39(Suppl 1). Performed By: #### 2 4321-2, , 2776-05 ####[facility] LABORATORYCLIA [id number] [place] [address] [place] Potassium [Moles/Vol] 4.0 mmol/L Normal 3.7-5.1 [facility] Comment on above: Order Comment: Shira feldman Type: BLOOD SPECIMENOrdering Facility: [facility] Address: [address] [place] [address] Performed By: #### 2 4321-2, , 2776-05 ####[facility] LABORATORYCLIA [id number] [place] [address] [place] Sodium [Moles/Vol] 143 mmol/L Normal 136-144 [facility] Comment on above: Order Comment: Speci men Type: BLOOD SPECIMENOrdering Facility: [facility] Address: [address] [place] [address] Performed By: #### 2 4321-2, , 2776-05 ####[facility] LABORATORYCLIA [id number] [address] STATES OF [facility] Urea nitrogen [Mass/Vol] 17 mg/dL Normal 9-24 [facility] Comment on above: Order Comment: Speci men Type: BLOOD SPECIMENOrdering Facility: [facility] Address: [address] [place] [address] Performed By: #### 2 4321-2, , 2776-05 ####[facility] LABORATORYCLIA [id number] [address] OF [facility] CASE MANAGEMon 07-15-2021 CASE MANAGEM Normal [facility] CBC panel Auto (Bld)on 07-15 Erythrocyte distribution width (RBC) [Ratio] 16.4 % High 11.5-15.0 [facility] Comment on above: Order Comment: Speci men Type: BLOOD SPECIMENOrdering Facility: [facility] Address: [address] [place] [address] Performed By: #### 5 8410-2 ####[facility] LABORATORYCLIA [id number] [address] STATES OF [facility] Hematocrit (Bld) [Volume fraction] 30.3 % Low 39.0-51.0 [facility] Comment on above: Order Comment: Speci men Type: BLOOD SPECIMENOrdering Facility: [facility] Address: [address] [place] [address] Performed By: #### 5 8410-2 ####[facility] LABORATORYCLIA [id number] [address] [place] Hemoglobin (Bld) [Mass/Vol] 9.2 g/dL Low 13.0-17.0 [facility] Comment on above: Order Comment: Speci men Type: BLOOD SPECIMENOrdering Facility: [facility] Address: [address] [address] Performed By: #### 5 8410-2 ####[facility] LABORATORYCLIA [id number] [address] MCH (RBC) [Entitic mass] 28.3 pg Normal 26.0-34.0 [facility] Comment on above: Order Comment: Speci men Type: BLOOD SPECIMENOrdering Facility: [facility] Address: [address] [place] [address] Performed By: #### 5 8410-2 ####[facility] LABORATORYCLIA [id number] [address] MCHC (RBC) [Mass/Vol] 30.4 g/dL Low 30.5-36.0 [facility] Comment on above: Order Comment: Speci men Type: BLOOD SPECIMENOrdering Facility: [facility] Address: [address] [place] [address] Performed By: #### 5 8410-2 ####[facility] LABORATORYCLIA [id number] [address] MCV (RBC) [Entitic vol] 93.2 fL Normal 80.0-100.0 [facility] Comment on above: Order Comment: Speci men Type: BLOOD SPECIMENOrdering Facility: [facility] Address: [address] [place] [address] Performed By: #### 5 8410-2 ####[facility] LABORATORYCLIA [id number] [address] Nucleated RBC (Bld) [#/Vol] 10*3/uL Normal <0.01 [facility] Comment on above: Order Comment: Speci men Type: BLOOD SPECIMENOrdering Facility: [facility] Address: [address] [place] [address] Performed By: #### 5 8410-2 ####[facility] LABORATORYCLIA [id number] [address] Platelet mean volume (Bld) [Entitic vol] 9.9 fL Normal 9.0-12.7 [facility] Comment on above: Order Comment: Speci men Type: BLOOD SPECIMENOrdering Facility: [facility] Address: [address] [place] [address] Performed By: #### 5 8410-2 ####[facility] LABORATORYCLIA [id number] [place] [address] [place] Platelets (Bld) [#/Vol] 381 10*3/uL Normal 150-400 [facility] Comment on above: Order Comment: Speci men Type: BLOOD SPECIMENOrdering Facility: [facility] Address: [address] [place] [address] Performed By: #### 5 8410-2 ####[facility] LABORATORYCLIA [id number] [place] [address] [place] RBC (Bld) [#/Vol] 3.25 10*6/uL Low 4.20-6.00 [facility] Comment on above: Order Comment: Speci men Type: BLOOD SPECIMENOrdering Facility: [facility] Address: [address] [place] [address] Performed By: #### 5 8410-2 ####[facility] LABORATORYCLIA [id number] [address] [place] WBC (Bld) [#/Vol] 8.80 10*3/uL Normal 3.70-11.00 [facility] Comment on above: Order Comment: Speci men Type: BLOOD SPECIMENOrdering Facility: [facility] Address: [address] [place] [address] Performed By: #### 5 8410-2 ####[facility] LABORATORYCLIA [id number] [address] [place] Magnesium SerPl-mCncon 07-15 Magnesium [Mass/Vol] 2.2 mg/dL Normal 1.7-2.3 [facility] Comment on above: Order Comment: Speci men Type: BLOOD SPECIMENOrdering Facility: [facility] Address: [address] [address] Performed By: #### 2 4321-2, 92107-5, 2777-1 ####[facility] LABORATORYCLIA [id number] [address] OF [facility] NURSING PROGon 07-15-2021 NURSING PROG Normal [facility] NURSING PROG Normal [facility] NURSING PROG Normal [facility] NUTRITIONon 07-15-2021 NUTRITION Normal [facility] Phosphate SerPl-mCncon 07-15 Phosphate [Mass/Vol] 3.4 mg/dL Normal 2.7-4.8 [facility] Comment on above: Order Comment: Speci men Type: BLOOD SPECIMENOrdering Facility: [facility] Address: [address] [address] Performed By: #### 2 4321-2, 38452-1, 27771 ####[facility] LABORATORYCLIA [id number] [address] THERAPY NTon 07-15-2021 THERAPY NT Normal [facility] US DVT UPPER LTon 07-15-2021 US DVT UPPER LT Normal [facility] XR CHEST 1V FRONTALon 2021 XR CHEST 1V FRONTAL Normal [facility] aPTT PPPon 07-15-2021 aPTT Coag (PPP) [Time] 59.9 s High 23.0-32.4 [facility] Comment on above: Order Comment: Speci men Type: BLOOD SPECIMENOrdering Facility: [facility] Address: [address] [address] Performed By: #### 1 4979-9 ####[facility] LABORATORYCLIA [id number] [address] [place] Basic metabolic 2000 panelon 07-14-2021 Anion gap [Moles/Vol] 9 mmol/L Normal 9-18 [facility] Comment on above: Order Comment: Speci men Type: BLOOD SPECIMENOrdering Facility: [facility] Address: [address] [address] Performed By: #### 1 9123-9, 2777-1, 79122-1 ####[facility] LABORATORYCLIA [id number] [place] [address] [place] Calcium [Mass/Vol] 8.5 mg/dL Normal 8.5-10.2 [facility] Comment on above: Order Comment: Speci men Type: BLOOD SPECIMENOrdering Facility: [facility] Address: [address] [place] [address] Performed By: #### 1 9123-9, 27711-04, 14616-6 ####[facility] LABORATORYCLIA [id number] [place] [address] [place] Chloride [Moles/Vol] 99 mmol/L Normal 97-105 [facility] Comment on above: Order Comment: Speci men Type: BLOOD SPECIMENOrdering Facility: [facility] Address: [address] [place] [address] Performed By: #### 1 9123-9, 2776-05, 09421-7 ####[facility] LABORATORYCLIA [id number] [place] [address] [place] CO2 [Moles/Vol] 31 mmol/L High 22-30 [facility] Comment on above: Order Comment: Speci men Type: BLOOD SPECIMENOrdering Facility: [facility] Address: [address] [place] [address] Performed By: #### 1 9123-9, 2776-05, 28166-8 ####[facility] LABORATORYCLIA [id number] [place] [address] [place] Creatinine [Mass/Vol] 0.74 mg/dL Normal 0.73-1.22 [facility] Comment on above: Order Comment: Speci men Type: BLOOD SPECIMENOrdering Facility: [facility] Address: [address] [place] [address] Performed By: #### 1 9123-9, 27711-04, 17660-7 ####[facility] LABORATORYCLIA [id number] [place] [address] [place] ESTIMATED GLOMERULAR FILTRATION RATE 98 mL/min/1.73m??? Normal >=60 [facility] Comment on above: Order Comment: Shira feldman Type: BLOOD SPECIMENOrdering Facility: [facility] Address: [address] [place] [address] Result Comment: Luzmaria mated Glomerular Filtration Rate [...] GFR. Performed By: #### 1 9123-9, 2777-1, 35326-3 ####[facility] LABORATORYCLIA [id number] [place] [address] [place] Glucose [Mass/Vol] 117 mg/dL High 74-99 [facility] Comment on above: Order Comment: Shira feldman Type: BLOOD SPECIMENOrdering Facility: [facility] Address: [address] [place] [address] Result Comment: The [place] [employer] (ADA) provides guidance for cutoff [...] Standards of Medical Care in Diabetes 2016, [place] [employer]. Diabetes Care. 2016.39(Suppl 1). Performed By: #### 1 9123-9, 2777-1, 58748-0 ####[facility] LABORATORYCLIA [id number] [place] [id number] [place] Potassium [Moles/Vol] 3.7 mmol/L Normal 3.7-5.1 [facility] Comment on above: Order Comment: Speci men Type: BLOOD SPECIMENOrdering Facility: [facility] Address: [address] [place] [address] Performed By: #### 1 9123-9, 2777-, 38057-7 ####[facility] LABORATORYCLIA [id number] [address] STATES OF [facility] Sodium [Moles/Vol] 139 mmol/L Normal 136-144 [facility] Comment on above: Order Comment: Speci men Type: BLOOD SPECIMENOrdering Facility: [facility] Address: [address] [place] [address] Performed By: #### 1 9123-9, 27711-04, 18915-3 ####[facility] LABORATORYCLIA [id number] [address] STATES OF [facility] Urea nitrogen [Mass/Vol] 16 mg/dL Normal 9-24 [facility] Comment on above: Order Comment: Speci men Type: BLOOD SPECIMENOrdering Facility: [facility] Address: [address] [place] [address] Performed By: #### 1 9123-9, 27711-04, 33760-6 ####[facility] LABORATORYCLIA [id number] [address] STATES OF [facility] CBC panel Auto (Bld)on 07-14 Erythrocyte distribution width (RBC) [Ratio] 16.2 % High 11.5-15.0 [facility] Comment on above: Order Comment: Speci men Type: BLOOD SPECIMENOrdering Facility: [facility] Address: [address] [place] [address] Performed By: #### 5 8410-2 ####[facility] LABORATORYCLIA [id number] [address] Hematocrit (Bld) [Volume fraction] 29.7 % Low 39.0-51.0 [facility] Comment on above: Order Comment: Speci men Type: BLOOD SPECIMENOrdering Facility: [facility] Address: [address] [place], [place] [address] Performed By: #### 5 8410-2 ####[facility] LABORATORYCLIA [id number] [address] Hemoglobin (Bld) [Mass/Vol] 8.8 g/dL Low 13.0-17.0 [facility] Comment on above: Order Comment: Speci men Type: BLOOD SPECIMENOrdering Facility: [facility] Address: [address] [place] [address] Performed By: #### 5 8410-2 ####[facility] LABORATORYCLIA [id number] [address] MCH (RBC) [Entitic mass] 27.5 pg Normal 26.0-34.0 [facility] Comment on above: Order Comment: Speci men Type: BLOOD SPECIMENOrdering Facility: [facility] Address: [address] [place] [address] Performed By: #### 5 8410-2 ####[facility] LABORATORYCLIA [id number] [address] MCHC (RBC) [Mass/Vol] 29.6 g/dL Low 30.5-36.0 [facility] Comment on above: Order Comment: Speci men Type: BLOOD SPECIMENOrdering Facility: [facility] Address: [address] [place] [address] Performed By: #### 5 8410-2 ####[facility] LABORATORYCLIA [id number] [address] MCV (RBC) [Entitic vol] 92.8 fL Normal 80.0-100.0 [facility] Comment on above: Order Comment: Speci men Type: BLOOD SPECIMENOrdering Facility: [facility] Address: [address] [place] [address] Performed By: #### 5 8410-2 ####[facility] LABORATORYCLIA [id number] [address] Nucleated RBC (Bld) [#/Vol] 10*3/uL Normal <0.01 [facility] Comment on above: Order Comment: Speci men Type: BLOOD SPECIMENOrdering Facility: [facility] Address: [address] [place] [address] Performed By: #### 5 8410-2 ####[facility] LABORATORYCLIA [id number] [address] [place] Platelet mean volume (Bld) [Entitic vol] 9.6 fL Normal 9.0-12.7 [facility] Comment on above: Order Comment: Speci men Type: BLOOD SPECIMENOrdering Facility: [facility] Address: [address] [place] [address] Performed By: #### 5 8410-2 ####[facility] LABORATORYCLIA [id number] [address] [place] Platelets (Bld) [#/Vol] 354 10*3/uL Normal 150-400 [facility] Comment on above: Order Comment: Speci men Type: BLOOD SPECIMENOrdering Facility: [facility] Address: [address] [place] [address] Performed By: #### 5 8410-2 ####[facility] LABORATORYCLIA [id number] [address] [place] RBC (Bld) [#/Vol] 3.20 10*6/uL Low 4.20-6.00 [facility] Comment on above: Order Comment: Speci men Type: BLOOD SPECIMENOrdering Facility: [facility] Address: [address] [place], [place] [address] Performed By: #### 5 8410-2 ####[facility] LABORATORYCLIA [id number] [address] [place] WBC (Bld) [#/Vol] 9.41 10*3/uL Normal 3.70-11.00 [facility] Comment on above: Order Comment: Speci men Type: BLOOD SPECIMENOrdering Facility: [facility] Address: [address] [place] [address] Performed By: #### 5 8410-2 ####[facility] LABORATORYCLIA [id number] [address] [place] CONSULT PROGon 07-14-2021 CONSULT PROG Normal [facility] Magnesium SerPl-mCncon 07-14 Magnesium [Mass/Vol] 2.2 mg/dL Normal 1.7-2.3 [facility] Comment on above: Order Comment: Speci men Type: BLOOD SPECIMENOrdering Facility: [facility] Address: [address] [place] [address] Performed By: #### 1 9123-9, 2777-1, 50996-8 ####[facility]ORATORYCLIA [id number] [address] NURSING PROGon 07-14-2021 NURSING PROG Normal [facility] Phosphate SerPl-mCncon 07-14 Phosphate [Mass/Vol] 3.6 mg/dL Normal 2.7-4.8 [facility] Comment on above: Order Comment: Speci men Type: BLOOD SPECIMENOrdering Facility: [facility] Address: [address] [place] [address] Performed By: #### 1 9123-9, 2777-1, 44540-5 ####[facility] LABORATORYCLIA [id number] [address] [place] aPTT PPPon 07-14-2021 aPTT Coag (PPP) [Time] 62.9 s High 23.0-32.4 [facility] Comment on above: Order Comment: Speci men Type: BLOOD SPECIMENOrdering Facility: [facility] Address: [address] [place] [address] Performed By: #### 1 4979-9 ####[facility] LABORATORYCLIA [id number] [address] STATES OF [facility] aPTT Coag (PPP) [Time] 55.2 s High 23.0-32.4 [facility] Comment on above: Order Comment: Speci men Type: BLOOD SPECIMENOrdering Facility: [facility] Address: [address] [place] [address] Performed By: #### 1 4979-9 ####[facility]ORATORYCLIA [id number] [place] [address] [place] Basic metabolic 2000 panelon 07-13-2021 Anion gap [Moles/Vol] 10 mmol/L Normal 9-18 [facility] Comment on above: Order Comment: Speci men Type: BLOOD SPECIMENOrdering Facility: [facility] Address: [address] [place] [address] Performed By: #### 1 9123-9, 2777-1, 36165-6 ####[facility]ORATORYCLIA [id number] [place] [address] [place] Calcium [Mass/Vol] 8.5 mg/dL Normal 8.5-10.2 [facility] Comment on above: Order Comment: Speci men Type: BLOOD SPECIMENOrdering Facility: [facility] Address: [address] [place] [address] Performed By: #### 1 9123-9, 27771, 45330-2 ####[facility]ORATORYCLIA [id number] [place] [address] [place] Chloride [Moles/Vol] 98 mmol/L Normal 97-105 [facility] Comment on above: Order Comment: Speci men Type: BLOOD SPECIMENOrdering Facility: [facility] Address: [address] [place] [address] Performed By: #### 1 9123-9, 2771, 59568-7 ####[facility] LABORATORYCLIA [id number] [place] [address] [place] CO2 [Moles/Vol] 32 mmol/L High 22-30 [facility] Comment on above: Order Comment: Speci men Type: BLOOD SPECIMENOrdering Facility: [facility] Address: [address] [place] [address] Performed By: #### 1 9123-9, 2777-1, 07070-4 ####[facility]'S CENTERIA [id number] [place] [address] [place] [facility] Creatinine [Mass/Vol] 0.75 mg/dL Normal 0.73-1.22 [facility] Comment on above: Order Comment: Shira feldman Type: BLOOD SPECIMENOrdering Facility: [facility] Address: [address] [phone] Performed By: #### 1 9123-9, 2777, 18350-6 ####[facility]'S CENTERIA [id number] [place] [id number] [place] ESTIMATED GLOMERULAR FILTRATION RATE 98 mL/min/1.73m??? Normal >=60 [facility] Comment on above: Order Comment: Shira feldman Type: BLOOD SPECIMENOrdering Facility: [facility] Address: [address] [place] [address] Result Comment: Luzmaria mated Glomerular Filtration Rate [...] GFR. Performed By: #### 1 9123-9, 2777, 66755-3 ####[facility]'S CENTERIA [id number] [place] [id number] [place] [facility] Glucose [Mass/Vol] 118 mg/dL High 74-99 [facility] Comment on above: Order Comment: Shira francia Type: BLOOD SPECIMENOrdering Facility: [facility] Address: [address] [place] [phone] Result Comment: The [place] Diabetes [employer] (ADA) provides guidance for cutoff [...] Standards of Medical Care in Diabetes 2016, [place] [employer]. Diabetes Care. 2016.39(Suppl 1). Performed By: #### 1 9123-9, 2777-1, 65644-6 ####[facility] LABORATORYCLIA [id number] [address] STATES OF [facility] Potassium [Moles/Vol] 3.6 mmol/L Low 3.7-5.1 [facility] Comment on above: Order Comment: Speci francia Type: BLOOD SPECIMENOrdering Facility: [facility] Address: [address] [place] [address] Performed By: #### 1 9123-9, 2777-, 17682-3 ####[facility]ITAL[facility] [id number] [address] STATES [facility] Sodium [Moles/Vol] 140 mmol/L Normal 136-144 [facility] Comment on above: Order Comment: Speci francia Type: BLOOD SPECIMENOrdering Facility: [facility] Address: [address] [place] [address] Performed By: #### 1 9123-9, 2777-, 62917-7 ####[facility]ORATORYCLIA [id number] [address] STATES [facility] Urea nitrogen [Mass/Vol] 15 mg/dL Normal 9-24 [facility] Comment on above: Order Comment: Speci men Type: BLOOD SPECIMENOrdering Facility: [facility] Address: [address] [place] [address] Performed By: #### 1 9123-9, 2777, 98063-9 ####[facility]ORATORYCLIA [id number] [address] [place] CASE MANAGEMon 07-13-2021 CASE MANAGEM Normal [facility] CBC panel Auto (Bld)on 03-09 -2022 Erythrocyte distribution width (RBC) [Ratio] 16.2 % High 11.5-15.0 [facility] Comment on above: Order Comment: Speci men Type: BLOOD SPECIMENOrdering Facility: [facility] Address: [address] [place] [address] Performed By: #### 5 8410-2 ####[facility] LABORATORYCLIA [id number] [address] Hematocrit (Bld) [Volume fraction] 29.5 % Low 39.0-51.0 [facility] Comment on above: Order Comment: Speci men Type: BLOOD SPECIMENOrdering Facility: [facility] Address: [address] [place] [address] Performed By: #### 5 8410-2 ####[facility] LABORATORYCLIA [id number] [address] OF [facility] Hemoglobin (Bld) [Mass/Vol] 8.9 g/dL Low 13.0-17.0 [facility] Comment on above: Order Comment: Speci men Type: BLOOD SPECIMENOrdering Facility: [facility] Address: [address] [place] [address] Performed By: #### 5 8410-2 ####[facility] LABORATORYCLIA [id number] [address] OF [facility] MCH (RBC) [Entitic mass] 27.8 pg Normal 26.0-34.0 [facility] Comment on above: Order Comment: Speci men Type: BLOOD SPECIMENOrdering Facility: [facility] Address: [address] [place] [address] Performed By: #### 5 8410-2 ####[facility] LABORATORYCLIA [id number] [address] MCHC (RBC) [Mass/Vol] 30.2 g/dL Low 30.5-36.0 [facility] Comment on above: Order Comment: Speci men Type: BLOOD SPECIMENOrdering Facility: [facility] Address: [address] [place] [address] Performed By: #### 5 8410-2 ####[facility] LABORATORYCLIA [id number] [address] MCV (RBC) [Entitic vol] 92.2 fL Normal 80.0-100.0 [facility] Comment on above: Order Comment: Speci men Type: BLOOD SPECIMENOrdering Facility: [facility] Address: [address] [place] [address] Performed By: #### 5 8410-2 ####[facility] LABORATORYCLIA [id number] [address] Nucleated RBC (Bld) [#/Vol] 10*3/uL Normal <0.01 [facility] Comment on above: Order Comment: Speci men Type: BLOOD SPECIMENOrdering Facility: [facility] Address: [address] [place] [address] Performed By: #### 5 8410-2 ####[facility] LABORATORYCLIA [id number] [address] Platelet mean volume (Bld) [Entitic vol] 9.8 fL Normal 9.0-12.7 [facility] Comment on above: Order Comment: Speci men Type: BLOOD SPECIMENOrdering Facility: [facility] Address: [address] [place] [address] Performed By: #### 5 8410-2 ####[facility] LABORATORYCLIA [id number] [address] Platelets (Bld) [#/Vol] 356 10*3/uL Normal 150-400 [facility] Comment on above: Order Comment: Speci men Type: BLOOD SPECIMENOrdering Facility: [facility] Address: [address] [place] [address] Performed By: #### 5 8410-2 ####[facility] LABORATORYCLIA [id number] [address] OF [place] RBC (Bld) [#/Vol] 3.20 10*6/uL Low 4.20-6.00 [facility] Comment on above: Order Comment: Speci men Type: BLOOD SPECIMENOrdering Facility: [facility] Address: [address] [place] [address] Performed By: #### 5 8410-2 ####[facility] LABORATORYCLIA [id number] [address] OF [facility] WBC (Bld) [#/Vol] 9.20 10*3/uL Normal 3.70-11.00 [facility] Comment on above: Order Comment: Speci men Type: BLOOD SPECIMENOrdering Facility: [facility] Address: [address] [place] [address] Performed By: #### 5 8410-2 ####[facility]ORATORYCLIA [id number] [address] CONSULT PROGon 07-13-2021 CONSULT PROG Normal [facility] CONSULT PROG Normal [facility] CONSULT PROG Normal [facility] Magnesium SerPl-mCncon 07-13 Magnesium [Mass/Vol] 2.1 mg/dL Normal 1.7-2.3 [facility] Comment on above: Order Comment: Speci men Type: BLOOD SPECIMENOrdering Facility: [facility] Address: [address] [place] [address] Performed By: #### 1 9123-9, 2777-1, 92581-1 ####[facility] LABORATORYCLIA [id number] [address] Phosphate SerPl-mCncon 07-13 Phosphate [Mass/Vol] 3.7 mg/dL Normal 2.7-4.8 [facility] Comment on above: Order Comment: Speci men Type: BLOOD SPECIMENOrdering Facility: [facility] Address: [address] [place] [address] Performed By: #### 1 9123-9, 2777-1, 89976-1 ####[facility] LABORATORYCLIA [id number] [address] [place] THERAPY NTon 07-13-2021 THERAPY NT Normal [facility] THERAPY NT Normal [facility] Vancomycin random [Mass/Vol] on 07-13-2021 Vancomycin [Mass/Vol] 31.7 ug/mL High 10.0-20.0 [facility] Comment on above: Order Comment: Speci men Type: BLOOD SPECIMENOrdering Facility: [facility] Address: [address] [place] [address] Result Comment: Refe rence ranges and high/low indicator flags are provided as general guidelines only. The treating physician must determine appropriate target levels/dosing based on the specific clinical situation. Performed By: #### 4 091-5 ####[facility] LABORATORYCLIA [id number] [address] aPTT PPPon 07-13-2021 aPTT Coag (PPP) [Time] 47.3 s High 23.0-32.4 [facility] Comment on above: Order Comment: Speci men Type: BLOOD SPECIMENOrdering Facility: [facility] Address: [address] [place] [address] Performed By: #### 1 4979-9 ####[facility] LABORATORYCLIA [id number] [address] aPTT Coag (PPP) [Time] 51.2 s High 23.0-32.4 [facility] Comment on above: Order Comment: Speci men Type: BLOOD SPECIMENOrdering Facility: [facility] Address: [address] [place] [address] Performed By: #### 1 4979-9 ####[facility] LABORATORYCLIA [id number] [address] aPTT Coag (PPP) [Time] 47.5 s High 23.0-32.4 [facility] Comment on above: Order Comment: Speci men Type: BLOOD SPECIMENOrdering Facility: [facility] Address: [address] [place] [address] Performed By: #### 1 4979-9 ####[facility] LABORATORYCLIA [id number] [place] [address] [place] Basic metabolic 2000 panelon 07-12-2021 Anion gap [Moles/Vol] 7 mmol/L Low 9-18 [facility] Comment on above: Order Comment: Speci men Type: BLOOD SPECIMENOrdering Facility: [facility] Address: [address] [place] [address] Performed By: #### 1 9123-9, 2777-, 79362-7 ####[facility] LABORATORYCLIA [id number] [place] [address] [place] Calcium [Mass/Vol] 8.3 mg/dL Low 8.5-10.2 [facility] Comment on above: Order Comment: Speci men Type: BLOOD SPECIMENOrdering Facility: [facility] Address: [address] [place] [address] Performed By: #### 1 9123-9, 2777, 28348-1 ####[facility] LABORATORYCLIA [id number] [place] [address] [place] Chloride [Moles/Vol] 101 mmol/L Normal 97-105 [facility] Comment on above: Order Comment: Speci men Type: BLOOD SPECIMENOrdering Facility: [facility] Address: [address] [place] [address] Performed By: #### 1 9123-9, 2777, 98048-8 ####[facility] LABORATORYCLIA [id number] [place] [address] [place] CO2 [Moles/Vol] 32 mmol/L High 22-30 [facility] Comment on above: Order Comment: Speci men Type: BLOOD SPECIMENOrdering Facility: [facility] Address: [address] [place] [address] Performed By: #### 1 9123-9, 2777-1, 92783-4 ####[facility] LABORATORYCLIA [id number] [place] [address] [place] Creatinine [Mass/Vol] 0.70 mg/dL Low 0.73-1.22 [facility] Comment on above: Order Comment: Shira feldman Type: BLOOD SPECIMENOrdering Facility: [facility] Address: [address] [address] Performed By: #### 1 9123-9, 2777-1, 19239-7 ####[facility] LABORATORYCLIA [id number] [address] OF [facility] ESTIMATED GLOMERULAR FILTRATION RATE 100 mL/min/1.73m??? Normal >=60 [facility] Comment on above: Order Comment: Shira feldman Type: BLOOD SPECIMENOrdering Facility: [facility] Address: [address] [address] Result Comment: Luzmaria mated Glomerular Filtration Rate [...] GFR. Performed By: #### 1 9123-9, 2777-1, 42013-5 ####[facility] LABORATORYCLIA [id number] [place] [address] [place] Glucose [Mass/Vol] 104 mg/dL High 74-99 [facility] Comment on above: Order Comment: Shira feldman Type: BLOOD SPECIMENOrdering Facility: [facility] Address: [address] [address] Result Comment: The [place] Diabetes [employer] (ADA) provides guidance for cutoff [...] Standards of Medical Care in Diabetes 2016, [place] [employer]. Diabetes Care. 2016.39(Suppl 1). Performed By: #### 1 9123-9, 2777-, 78783-4 ####[facility] LABORATORYCLIA [id number] [place] [address] [place] Potassium [Moles/Vol] 3.7 mmol/L Normal 3.7-5.1 [facility] Comment on above: Order Comment: Speci men Type: BLOOD SPECIMENOrdering Facility: [facility] Address: [address] [place] [address] Performed By: #### 1 9123-9, 2777-, 90819-3 ####[facility] LABORATORYCLIA [id number] [address] STATES OF [facility] Sodium [Moles/Vol] 140 mmol/L Normal 136-144 [facility] Comment on above: Order Comment: Speci men Type: BLOOD SPECIMENOrdering Facility: [facility] Address: [facility] [place] [address] Performed By: #### 1 9123-9, 2777-, 22435-7 ####[facility] LABORATORYCLIA [id number] [address] [place] Urea nitrogen [Mass/Vol] 12 mg/dL Normal 9-24 [facility] Comment on above: Order Comment: Speci men Type: BLOOD SPECIMENOrdering Facility: [facility] Address: [address] [place] [address] Performed By: #### 1 9123-9, 2777-, 49172-5 ####[facility] LABORATORYCLIA [id number] [address] [place] CBC panel Auto (Bld)on 07-12 Erythrocyte distribution width (RBC) [Ratio] 16.1 % High 11.5-15.0 [facility] Comment on above: Order Comment: Speci men Type: BLOOD SPECIMENOrdering Facility: [facility] Address: [address] [place] [address] Performed By: #### 5 8410-2 ####[facility] LABORATORYCLIA [id number] [address] Hematocrit (Bld) [Volume fraction] 28.2 % Low 39.0-51.0 [facility] Comment on above: Order Comment: Speci men Type: BLOOD SPECIMENOrdering Facility: [facility] Address: [address] [place] [address] Performed By: #### 5 8410-2 ####[facility] [facility]ATORYCLIA [id number] [address] Hemoglobin (Bld) [Mass/Vol] 8.5 g/dL Low 13.0-17.0 [facility] Comment on above: Order Comment: Speci men Type: BLOOD SPECIMENOrdering Facility: [facility] Address: [address] [place] [address] Performed By: #### 5 8410-2 ####[facility] LABORATORYCLIA [id number] [address] MCH (RBC) [Entitic mass] 26.8 pg Normal 26.0-34.0 [facility] Comment on above: Order Comment: Speci men Type: BLOOD SPECIMENOrdering Facility: [facility] Address: [address] [place] [address] Performed By: #### 5 8410-2 ####[facility] LABORATORYCLIA [id number] [address] [place] MCHC (RBC) [Mass/Vol] 30.1 g/dL Low 30.5-36.0 [facility] Comment on above: Order Comment: Speci men Type: BLOOD SPECIMENOrdering Facility: [facility] Address: [address] [place] [address] Performed By: #### 5 8410-2 ####[facility]ORATORYCLIA [id number] [address] [place] MCV (RBC) [Entitic vol] 89.0 fL Normal 80.0-100.0 [facility] Comment on above: Order Comment: Speci men Type: BLOOD SPECIMENOrdering Facility: [facility] Address: [address] [place] [address] Performed By: #### 5 8410-2 ####[facility]ORATORYCLIA [id number] [address] Nucleated RBC (Bld) [#/Vol] 10*3/uL Normal <0.01 [facility] Comment on above: Order Comment: Speci men Type: BLOOD SPECIMENOrdering Facility: [facility] Address: [address] [place] [address] Performed By: #### 5 8410-2 ####[facility]ORATORYCLIA [id number] [address] [place] Platelet mean volume (Bld) [Entitic vol] 9.6 fL Normal 9.0-12.7 [facility] Comment on above: Order Comment: Speci men Type: BLOOD SPECIMENOrdering Facility: [facility] Address: [address] [place] [address] Performed By: #### 5 8410-2 ####[facility]ORATORYCLIA [id number] [address] [place] Platelets (Bld) [#/Vol] 340 10*3/uL Normal 150-400 [facility] Comment on above: Order Comment: Speci men Type: BLOOD SPECIMENOrdering Facility: [facility] Address: [address] [place], [place] [address] Performed By: #### 5 8410-2 ####[facility]ORATORYCLIA [id number] [address] [place] RBC (Bld) [#/Vol] 3.17 10*6/uL Low 4.20-6.00 [facility] Comment on above: Order Comment: Speci men Type: BLOOD SPECIMENOrdering Facility: [facility] Address: [address] [place] [address] Performed By: #### 5 8410-2 ####[facility]ORATORYCLIA [id number] [address] [place] WBC (Bld) [#/Vol] 8.66 10*3/uL Normal 3.70-11.00 [facility] Comment on above: Order Comment: Speci men Type: BLOOD SPECIMENOrdering Facility: [facility] Address: [address] [place] [address] Performed By: #### 5 8410-2 ####[facility]ORATORYCLIA [id number] [address] [place] CONSULTon 07-12-2021 CONSULT Normal [facility] CONSULT PROGon 07-12-2021 CONSULT PROG Normal [facility] Magnesium SerPl-ncon 07-12 Magnesium [Mass/Vol] 2.1 mg/dL Normal 1.7-2.3 [facility] Comment on above: Order Comment: Speci men Type: BLOOD SPECIMENOrdering Facility: [facility] Address: [address] [place] [address] Performed By: #### 1 9123-9, 2777-1, 81310-7 ####[facility]ATORYCLIA [id number] [address] NURSING PROGon 07-12-2021 NURSING PROG Normal [facility] Phosphate SerPl-mCncon 07-12 Phosphate [Mass/Vol] 3.1 mg/dL Normal 2.7-4.8 [facility] Comment on above: Order Comment: Speci men Type: BLOOD SPECIMENOrdering Facility: [facility] Address: [address] [place] [address] Performed By: #### 1 9123-9, 2777-1, 29363-1 ####[facility]ORATORYCLIA [id number] [address] THERAPY NTon 07-12-2021 THERAPY NT Normal [facility] aPTT PPPon 07-12-2021 aPTT Coag (PPP) [Time] 49.5 s High 23.0-32.4 [facility] Comment on above: Order Comment: Speci men Type: BLOOD SPECIMENOrdering Facility: [facility] Address: [address] [place] [address] Performed By: #### 1 4979-9 ####[facility]ORATORYCLIA [id number] [address] STATES OF [facility] aPTT Coag (PPP) [Time] 68.0 s High 23.0-32.4 [facility] Comment on above: Order Comment: Speci men Type: BLOOD SPECIMENOrdering Facility: [facility] Address: [address] [place] [address] Performed By: #### 1 4979-9 ####[facility]ORATORYCLIA [id number] [address] OF [facility] aPTT Coag (PPP) [Time] 80.0 s High 23.0-32.4 [facility] Comment on above: Order Comment: Speci men Type: BLOOD SPECIMENOrdering Facility: [facility] Address: [address] [place] [address] Performed By: #### 1 4979-9 ####[facility]ORATORYCLIA [id number] [address] OF [facility] CASE MGT INIT ASSESon 2021 CASE MGT INIT ASSES Normal [facility] CBC panel Auto (Bld)on 07-11 Erythrocyte distribution width (RBC) [Ratio] 16.3 % High 11.5-15.0 [facility] Comment on above: Order Comment: Speci men Type: BLOOD SPECIMENOrdering Facility: [facility] Address: [address] [place] [address] Performed By: #### 5 8410-2 ####[facility]ORATORYCLIA [id number] [address] OF [facility] Hematocrit (Bld) [Volume fraction] 28.3 % Low 39.0-51.0 [facility] Comment on above: Order Comment: Speci men Type: BLOOD SPECIMENOrdering Facility: [facility] Address: [address] [place] [address] Performed By: #### 5 8410-2 ####[facility]ATORYCLIA [id number] [address] Hemoglobin (Bld) [Mass/Vol] 8.8 g/dL Low 13.0-17.0 [facility] Comment on above: Order Comment: Speci men Type: BLOOD SPECIMENOrdering Facility: [facility] Address: [address] [place] [address] Performed By: #### 5 8410-2 ####[facility]ATORYCLIA [id number] [address] MCH (RBC) [Entitic mass] 27.4 pg Normal 26.0-34.0 [facility] Comment on above: Order Comment: Speci men Type: BLOOD SPECIMENOrdering Facility: [facility] Address: [address] [place] [address] Performed By: #### 5 8410-2 ####[facility]ATORYCLIA [id number] [address] MCHC (RBC) [Mass/Vol] 31.1 g/dL Normal 30.5-36.0 [facility] Comment on above: Order Comment: Speci men Type: BLOOD SPECIMENOrdering Facility: [facility] Address: [address] [place] [address] Performed By: #### 5 8410-2 ####[facility]ATORYCLIA [id number] [address] MCV (RBC) [Entitic vol] 88.2 fL Normal 80.0-100.0 [facility] Comment on above: Order Comment: Speci men Type: BLOOD SPECIMENOrdering Facility: [facility] Address: [address] [place] [address] Performed By: #### 5 8410-2 ####[facility]ATORYCLIA [id number] [address] [place] Nucleated RBC (Bld) [#/Vol] 10*3/uL Normal <0.01 [facility] Comment on above: Order Comment: Speci men Type: BLOOD SPECIMENOrdering Facility: [facility] Address: [address] [place] [address] Performed By: #### 5 8410-2 ####[facility]ATORYCLIA [id number] [address] [place] Platelet mean volume (Bld) [Entitic vol] 9.7 fL Normal 9.0-12.7 [facility] Comment on above: Order Comment: Speci men Type: BLOOD SPECIMENOrdering Facility: [facility] Address: [address] [place] [address] Performed By: #### 5 8410-2 ####[facility]ATORYCLIA [id number] [address] [place] Platelets (Bld) [#/Vol] 315 10*3/uL Normal 150-400 [facility] Comment on above: Order Comment: Speci men Type: BLOOD SPECIMENOrdering Facility: [facility] Address: [address] [place] [address] Performed By: #### 5 8410-2 ####[facility]ORYCLIA [id number] [address] [place] RBC (Bld) [#/Vol] 3.21 10*6/uL Low 4.20-6.00 [facility] Comment on above: Order Comment: Speci men Type: BLOOD SPECIMENOrdering Facility: [facility] Address: [address] [place] [address] Performed By: #### 5 8410-2 ####[facility]ORYCLIA [id number] [address] [place] WBC (Bld) [#/Vol] 9.18 10*3/uL Normal 3.70-11.00 [facility] Comment on above: Order Comment: Speci men Type: BLOOD SPECIMENOrdering Facility: [facility] Address: [address] [place] [address] Performed By: #### 5 8410-2 ####[facility]ATORYCLIA [id number] [address] CONSULT PROGon 07-11-2021 CONSULT PROG Normal [facility] CT BRAIN WO IVCONon 07-12-19 CT BRAIN WO IVCON Normal [facility] Magnesium SerPl-mCncon 07-11 Magnesium [Mass/Vol] 2.1 mg/dL Normal 1.7-2.3 [facility] Comment on above: Order Comment: Speci men Type: BLOOD SPECIMENOrdering Facility: [facility] Address: [address] [place] [address] Performed By: #### 1 9123-9, 2777-1 ####[facility]ORYCLIA [id number] [address] NURSING PROGon 07-11-2021 NURSING PROG Normal [facility] NURSING PROG Normal [facility] Phosphate SerPl-ncon 07-11 Phosphate [Mass/Vol] 3.4 mg/dL Normal 2.7-4.8 [facility] Comment on above: Order Comment: Speci men Type: BLOOD SPECIMENOrdering Facility: [facility] Address: [address] [place] [address] Performed By: #### 1 9123-9, 2777-1 ####[facility]ATORYCLIA [id number] [address] THERAPY NTon 07-11-2021 THERAPY NT Normal [facility] Vancomycin random [Mass/Vol] on 07-11-2021 Vancomycin [Mass/Vol] 28.6 ug/mL High 10.0-20.0 [facility] Comment on above: Order Comment: Speci men Type: BLOOD SPECIMENOrdering Facility: [facility] Address: [address] [place] [address] Result Comment: Refe rence ranges and high/low indicator flags are provided as general guidelines only. The treating physician must determine appropriate target levels/dosing based on the specific clinical situation. Performed By: #### 4 091-5 ####[facility]ATORYCLIA [id number] [address] aPTT PPPon 07-11-2021 aPTT Coag (PPP) [Time] 62.0 s High 23.0-32.4 [facility] Comment on above: Order Comment: Speci men Type: BLOOD SPECIMENOrdering Facility: [facility] Address: [address] [place] [address] Performed By: #### 1 4979-9 ####[facility]ORYCLIA [id number] [address] aPTT Coag (PPP) [Time] 52.7 s High 23.0-32.4 [facility] Comment on above: Order Comment: Speci men Type: BLOOD SPECIMENOrdering Facility: [facility] Address: [address] [place] [address] Performed By: #### 1 4979-9 ####[facility]ATORYCLIA [id number] [address] aPTT Coag (PPP) [Time] 29.9 s Normal 23.0-32.4 [facility] Comment on above: Order Comment: Speci men Type: BLOOD SPECIMENOrdering Facility: [facility] Address: [address] [place] [address] Performed By: #### 1 4979-9 ####[facility]ATORYCLIA [id number] [address] Basic metabolic 2000 panelon 07-10-2021 Anion gap [Moles/Vol] 14 mmol/L Normal 9-18 [facility] Comment on above: Order Comment: Speci men Type: BLOOD SPECIMENOrdering Facility: [facility] Address: [address] [place] [address] Performed By: #### 1 9123-9, 2777-1, 89090-0 ####[facility]ORATORYCLIA [id number] [place] [address] [place] Calcium [Mass/Vol] 8.5 mg/dL Normal 8.5-10.2 [facility] Comment on above: Order Comment: Speci men Type: BLOOD SPECIMENOrdering Facility: [facility] Address: [address] [place] [address] Performed By: #### 1 9123-9, 2777-1, 53794-1 ####[facility]ORATORYCLIA [id number] [place] [address] [place] Chloride [Moles/Vol] 100 mmol/L Normal 97-105 [facility] Comment on above: Order Comment: Speci men Type: BLOOD SPECIMENOrdering Facility: [facility] Address: [address] [place] [address] Performed By: #### 1 9123-9, 27771, 21296-1 ####[facility]ATORYCLIA [id number] [address] [place] CO2 [Moles/Vol] 27 mmol/L Normal 22-30 [facility] Comment on above: Order Comment: Speci men Type: BLOOD SPECIMENOrdering Facility: [facility] Address: [address] [place] [address] Performed By: #### 1 9123-9, 2771, 80963-7 ####[facility]ATORYCLIA [id number] [place] [address] [place] Creatinine [Mass/Vol] 0.66 mg/dL Low 0.73-1.22 [facility] Comment on above: Order Comment: Speci men Type: BLOOD SPECIMENOrdering Facility: [facility] Address: [address] [place] [address] Performed By: #### 1 9123-9, 2777-1, 24164-1 ####[facility]ATORYCLIA [id number] [address] [place] ESTIMATED GLOMERULAR FILTRATION RATE 102 mL/min/1.73m??? Normal >=60 [facility] Comment on above: Order Comment: Shira feldman Type: BLOOD SPECIMENOrdering Facility: [facility] Address: [address] [id number] Result Comment: Luzmaria mated Glomerular Filtration Rate [...] GFR. Performed By: #### 1 9123-9, 2777-1, 66777-0 ####[facility]ATORYCLIA [id number] [place] [address] [place] Glucose [Mass/Vol] 93 mg/dL Normal 74-99 [facility] Comment on above: Order Comment: Shira feldman Type: BLOOD SPECIMENOrdering Facility: [facility] Address: [address] [place] [address] Result Comment: The [place] [employer] (ADA) provides guidance for cutoff [...] Standards of Medical Care in Diabetes 2016, [place] [employer]. Diabetes Care. 2016.39(Suppl 1). Performed By: #### 1 9123-9, 2777-1, 06589-9 ####[facility]ATORYCLIA [id number] [place] [address] [place] Potassium [Moles/Vol] 3.5 mmol/L Low 3.7-5.1 [facility] Comment on above: Order Comment: Shira feldman Type: BLOOD SPECIMENOrdering Facility: [facility] Address: [address] [place] [address] Performed By: #### 1 9123-9, 2777-1, 77745-1 ####[facility]ORYCLIA [id number] [address] Sodium [Moles/Vol] 141 mmol/L Normal 136-144 [facility] Comment on above: Order Comment: Speci men Type: BLOOD SPECIMENOrdering Facility: [facility] Address: [address] [place] [address] Performed By: #### 1 9123-9, 2777-, 18165-1 ####[facility]ATORYCLIA [id number] [address] Urea nitrogen [Mass/Vol] 11 mg/dL Normal 9-24 [facility] Comment on above: Order Comment: Speci men Type: BLOOD SPECIMENOrdering Facility: [facility] Address: [address] [place] [address] Performed By: #### 1 9123-9, 2777, 15382-2 ####[facility]ATORYCLIA [id number] [address] CBC panel Auto (Bld)on 07-10 Erythrocyte distribution width (RBC) [Ratio] 16.2 % High 11.5-15.0 [facility] Comment on above: Order Comment: Speci men Type: BLOOD SPECIMENOrdering Facility: [facility] Address: [address] [place] [address] Performed By: #### 5 8410-2 ####[facility]ATORYCLIA [id number] [address] Hematocrit (Bld) [Volume fraction] 30.6 % Low 39.0-51.0 [facility] Comment on above: Order Comment: Speci men Type: BLOOD SPECIMENOrdering Facility: [facility] Address: [address] [place] [address] Performed By: #### 5 8410-2 ####[facility]ORATORYCLIA [id number] [address] OF [facility] Hemoglobin (Bld) [Mass/Vol] 9.6 g/dL Low 13.0-17.0 [facility] Comment on above: Order Comment: Speci men Type: BLOOD SPECIMENOrdering Facility: [facility] Address: [address] [place] [address] Performed By: #### 5 8410-2 ####[facility]ORATORYCLIA [id number] [address] MCH (RBC) [Entitic mass] 28.3 pg Normal 26.0-34.0 [facility] Comment on above: Order Comment: Speci men Type: BLOOD SPECIMENOrdering Facility: [facility] Address: [address] [place] [address] Performed By: #### 5 8410-2 ####[facility]ATORYCLIA [id number] [address] MCHC (RBC) [Mass/Vol] 31.4 g/dL Normal 30.5-36.0 [facility] Comment on above: Order Comment: Speci men Type: BLOOD SPECIMENOrdering Facility: [facility] Address: [address] [place] [address] Performed By: #### 5 8410-2 ####[facility]ORATORYCLIA [id number] [address] STATES [facility] MCV (RBC) [Entitic vol] 90.3 fL Normal 80.0-100.0 [facility] Comment on above: Order Comment: Speci men Type: BLOOD SPECIMENOrdering Facility: [facility] Address: [address] [place] [address] Performed By: #### 5 8410-2 ####[facility]ATORYCLIA [id number] [address] Nucleated RBC (Bld) [#/Vol] 10*3/uL Normal <0.01 [facility] Comment on above: Order Comment: Speci men Type: BLOOD SPECIMENOrdering Facility: [facility] Address: [address] [place], [place] [id number] Performed By: #### 5 8410-2 ####[facility]ORATORYCLIA [id number] [address] Platelet mean volume (Bld) [Entitic vol] 9.7 fL Normal 9.0-12.7 [facility] Comment on above: Order Comment: Speci men Type: BLOOD SPECIMENOrdering Facility: [facility] Address: [address] [place] [address] Performed By: #### 5 8410-2 ####[facility]ORATORYCLIA [id number] [address] [place] Platelets (Bld) [#/Vol] 306 10*3/uL Normal 150-400 [facility] Comment on above: Order Comment: Speci men Type: BLOOD SPECIMENOrdering Facility: [facility] Address: [address] [place] [address] Performed By: #### 5 8410-2 ####[facility]ORATORYCLIA [id number] [place] [address] [place] RBC (Bld) [#/Vol] 3.39 10*6/uL Low 4.20-6.00 [facility] Comment on above: Order Comment: Speci men Type: BLOOD SPECIMENOrdering Facility: [facility] Address: [address] [place], [place] [address] Performed By: #### 5 8410-2 ####[facility]ORATORYCLIA [id number] [address] [place] WBC (Bld) [#/Vol] 9.81 10*3/uL Normal 3.70-11.00 [facility] Comment on above: Order Comment: Speci men Type: BLOOD SPECIMENOrdering Facility: [facility] Address: [address] [place] [address] Performed By: #### 5 8410-2 ####[facility]ORATORYCLIA [id number] [place] [address] [place] CONSULTon 07-10-2021 CONSULT Normal [facility] CONSULT Normal [facility] Magnesium SerPl-mCncon 07-10 Magnesium [Mass/Vol] 1.9 mg/dL Normal 1.7-2.3 [facility] Comment on above: Order Comment: Speci men Type: BLOOD SPECIMENOrdering Facility: [facility] Address: [address] [place] [address] Performed By: #### 1 9123-9, 2777-1, 38332-4 ####[facility]ORATORYCLIA [id number] [address] OF [facility] NURSING PROGon 07-10-2021 NURSING PROG Normal [facility] NURSING PROG Normal [facility] NUTRITIONon 07-10-2021 NUTRITION Normal [facility] Phosphate SerPl-mCncon 07-10 Phosphate [Mass/Vol] 3.6 mg/dL Normal 2.7-4.8 [facility] Comment on above: Order Comment: Speci men Type: BLOOD SPECIMENOrdering Facility: [facility] Address: [address] [place] [address] Performed By: #### 1 9123-9, 2777-1, 13223-5 ####[facility]ORATORYCLIA [id number] [place] [address] [place] US DVT LOWER BILon US DVT LOWER RAINER Normal [facility] aPTT PPPon 07-10-2021 aPTT Coag (PPP) [Time] 28.8 s Normal 23.0-32.4 [facility] Comment on above: Order Comment: Speci men Type: BLOOD SPECIMENOrdering Facility: [facility] Address: [address] [address] Performed By: #### 1 4979-9 ####[facility] LABORATORYCLIA [id number] [place] [address] [place] aPTT Coag (PPP) [Time] 28.4 s Normal 23.0-32.4 [facility] Comment on above: Order Comment: Speci men Type: BLOOD SPECIMENOrdering Facility: [facility] Address: [address] [place] [address] Performed By: #### 1 4979-9 ####[facility] LABORATORYCLIA [id number] [place] [address] [place] ALLIED HEALTHon 07-09-2021 ALLIED HEALTH Normal [facility] Basic metabolic 2000 panelon 07-09-2021 Anion gap [Moles/Vol] 9 mmol/L Normal 9-18 [facility] Comment on above: Order Comment: Speci men Type: BLOOD SPECIMENOrdering Facility: [facility] Address: [address] [place] [address] Performed By: #### 1 9123-9, 2777-1, 29640-1 ####[facility] LABORATORYCLIA [id number] [place] [address] [place] Calcium [Mass/Vol] 8.3 mg/dL Low 8.5-10.2 [facility] Comment on above: Order Comment: Speci men Type: BLOOD SPECIMENOrdering Facility: [facility] Address: [address] [place] [address] Performed By: #### 1 9123-9, 2777-1, 10559-1 ####[facility]ORATORYCLIA [id number] [place] [address] [place] Chloride [Moles/Vol] 100 mmol/L Normal 97-105 [facility] Comment on above: Order Comment: Speci men Type: BLOOD SPECIMENOrdering Facility: [facility] Address: [address] [place] [address] Performed By: #### 1 9123-9, 2777-1, 40702-3 ####[facility]ORATORYCLIA [id number] [place] [address] [place] CO2 [Moles/Vol] 29 mmol/L Normal 22-30 [facility] Comment on above: Order Comment: Speci men Type: BLOOD SPECIMENOrdering Facility: [facility] Address: [address] [address] Performed By: #### 1 9123-9, 2777-1, 85010-6 ####[facility] CENTERIA [id number] [address] [place] Creatinine [Mass/Vol] 0.61 mg/dL Low 0.73-1.22 [facility] Comment on above: Order Comment: Shira men Type: BLOOD SPECIMENOrdering Facility: [facility] Address: [address] [address] Performed By: #### 1 9123-9, 2777-, 76398-2 ####[facility] CENTERIA [id number] [address] OF [facility] ESTIMATED GLOMERULAR FILTRATION RATE 104 mL/min/1.73m??? Normal >=60 [facility] Comment on above: Order Comment: Shira feldman Type: BLOOD SPECIMENOrdering Facility: [facility] Address: [address] [place] [address] Result Comment: Luzmaria mated Glomerular Filtration Rate [...] GFR. Performed By: #### 1 9123-9, 2777-, 12962-0 ####[facility] CENTERIA [id number] [place] [address] [place] Glucose [Mass/Vol] 106 mg/dL High 74-99 [facility] Comment on above: Order Comment: Shira feldman Type: BLOOD SPECIMENOrdering Facility: [facility] Address: [address] [address] Result Comment: The [place] Diabetes Association (ADA) provides guidance for cutoff [...] Standards of Medical Care in Diabetes 2016, [place] [employer]. Diabetes Care. 2016.39(Suppl 1). Performed By: #### 1 9123-9, 2777-, 97440-8 ####[facility] LABORATORYCLIA [id number] [place] [address] [place] Potassium [Moles/Vol] 3.6 mmol/L Low 3.7-5.1 [facility] Comment on above: Order Comment: Shira feldman Type: BLOOD SPECIMENOrdering Facility: [facility] Address: [address] [place] [address] Performed By: #### 1 9123-9, 2777-, 32664-1 ####[facility]ITAL[facility] [id number] [place] [address] [place] Sodium [Moles/Vol] 138 mmol/L Normal 136-144 [facility] Comment on above: Order Comment: Shira feldman Type: BLOOD SPECIMENOrdering Facility: [facility] Address: [address] [place] [address] Performed By: #### 1 9123-9, 2777, 31233-7 ####[facility]ORATORYCLIA [id number] [place] [address] [place] Urea nitrogen [Mass/Vol] 12 mg/dL Normal 9-24 [facility] Comment on above: Order Comment: Shira feldman Type: BLOOD SPECIMENOrdering Facility: [facility] Address: [address] [place] [address] Performed By: #### 1 9123-9, 2777-, 04350-9 ####[facility]ORATORYCLIA [id number] [place] [address] [place] CBC panel Auto (Bld)on 07-09 Erythrocyte distribution width (RBC) [Ratio] 16.2 % High 11.5-15.0 [facility] Comment on above: Order Comment: Speci men Type: BLOOD SPECIMENOrdering Facility: [facility] Address: [address] [place] [address] Performed By: #### 5 8410-2 ####[facility] LABORATORYCLIA [id number] [address] Hematocrit (Bld) [Volume fraction] 29.0 % Low 39.0-51.0 [facility] Comment on above: Order Comment: Speci men Type: BLOOD SPECIMENOrdering Facility: [facility] Address: [address] [place] [address] Performed By: #### 5 8410-2 ####[facility]ORATORYCLIA [id number] [address] Hemoglobin (Bld) [Mass/Vol] 8.8 g/dL Low 13.0-17.0 [facility] Comment on above: Order Comment: Speci men Type: BLOOD SPECIMENOrdering Facility: [facility] Address: [address] [place] [address] Performed By: #### 5 8410-2 ####[facility] LABORATORYCLIA [id number] [address] MCH (RBC) [Entitic mass] 27.0 pg Normal 26.0-34.0 [facility] Comment on above: Order Comment: Speci men Type: BLOOD SPECIMENOrdering Facility: [facility] Address: [address] [place] [address] Performed By: #### 5 8410-2 ####[facility]ORATORYCLIA [id number] [address] MCHC (RBC) [Mass/Vol] 30.3 g/dL Low 30.5-36.0 [facility] Comment on above: Order Comment: Speci men Type: BLOOD SPECIMENOrdering Facility: [facility] Address: [address] [address] Performed By: #### 5 8410-2 ####[facility] LABORATORYCLIA [id number] [address] MCV (RBC) [Entitic vol] 89.0 fL Normal 80.0-100.0 [facility] Comment on above: Order Comment: Speci men Type: BLOOD SPECIMENOrdering Facility: [facility] Address: [address] [place] [address] Performed By: #### 5 8410-2 ####[facility]ORATORYCLIA [id number] [address] Nucleated RBC (Bld) [#/Vol] 10*3/uL Normal <0.01 [facility] Comment on above: Order Comment: Speci men Type: BLOOD SPECIMENOrdering Facility: [facility] Address: [address] [place] [address] Performed By: #### 5 8410-2 ####[facility]ORATORYCLIA [id number] [address] Platelet mean volume (Bld) [Entitic vol] 9.8 fL Normal 9.0-12.7 [facility] Comment on above: Order Comment: Speci men Type: BLOOD SPECIMENOrdering Facility: [facility] Address: [address] [place] [address] Performed By: #### 5 8410-2 ####[facility]ORATORYCLIA [id number] [address] Platelets (Bld) [#/Vol] 281 10*3/uL Normal 150-400 [facility] Comment on above: Order Comment: Speci men Type: BLOOD SPECIMENOrdering Facility: [facility] Address: [address] [place] [address] Performed By: #### 5 8410-2 ####[facility]ORATORYCLIA [id number] [address] [place] RBC (Bld) [#/Vol] 3.26 10*6/uL Low 4.20-6.00 [facility] Comment on above: Order Comment: Speci men Type: BLOOD SPECIMENOrdering Facility: [facility] Address: [address] [place] [address] Performed By: #### 5 8410-2 ####[facility]ORATORYCLIA [id number] [place] [address] [place] WBC (Bld) [#/Vol] 9.12 10*3/uL Normal 3.70-11.00 [facility] Comment on above: Order Comment: Speci men Type: BLOOD SPECIMENOrdering Facility: [facility] Address: [address] [place] [address] Performed By: #### 5 8410-2 ####[facility]ORATORYCLIA [id number] [address] [place] CONSULT PROGon 07-09-2021 CONSULT PROG Normal [facility] CONSULT PROG Normal [facility] HISTORY PHYSICALon HISTORY PHYSICAL Normal [facility] Magnesium SerPl-mCncon 07-09 Magnesium [Mass/Vol] 1.9 mg/dL Normal 1.7-2.3 [facility] Comment on above: Order Comment: Speci men Type: BLOOD SPECIMENOrdering Facility: [facility] Address: [address] [place] [address] Performed By: #### 1 9123-9, 2777-1, 45495-9 ####[facility]ORATORYCLIA [id number] [address] [place] Phosphate SerPl-mCncon 07-09 Phosphate [Mass/Vol] 3.6 mg/dL Normal 2.7-4.8 [facility] Comment on above: Order Comment: Speci men Type: BLOOD SPECIMENOrdering Facility: [facility] Address: [address] [place] [address] Performed By: #### 1 9123-9, 2777-1, 03709-9 ####[facility]ORATORYCLIA [id number] [place] [address] [place] THERAPY NTon 07-09-2021 THERAPY NT Normal [facility] XR ABDOMEN 1V SUPINEon 07-09 XR ABDOMEN 1V SUPINE Normal [facility] ALLIED HEALTHon 07-08-2021 ALLIED HEALTH Normal [facility] ALLIED HEALTH Normal [facility] ALLIED HEALTH Normal [facility] ANES PRE-OPon 07-08-2021 ANES PRE-OP Normal [facility] BRIEF OP NOTon 07-08-2021 BRIEF OP NOT Normal [facility] Bacteria Bld Culton 07-09-19 22 Bacteria identified Cx Nom (Bld) CULTURE, BLOOD: No growth 5 days Normal [facility] Comment on above: Performed By: #### 6 00-7 ####[facility]ORATORYCLIA [id number] [address] Bacteria identified Cx Nom (Bld) CULTURE, BLOOD: No growth 5 days Normal [facility] Comment on above: Performed By: #### 6 00-7 ####[facility]ORATORYCLIA [id number] [address] [place] Bacteria CSF Culton 07-09-19 22 Bacteria identified Cx Nom (CSF) CULTURE, CSF: No growth 14 days GRAM STAIN: No organisms seen No Polymorphonuclear Leukocytes Few Red Blood Cells Gram stain performed on cytospun specimen. Normal [facility] Comment on above: Performed By: #### 6 06-4 ####[facility]ORATORYCLIA [id number] [place] [address] [place] Bacteria Ur Culton 2 Bacteria identified Cx Nom (U) ORGANISM ID: 1 10,000 -<50,000 CFU/ml Proteus species Insignificant colony count. No further workup. ORGANISM ID: 2 <10,000 CFU/ml Normal urogenital chris Normal [facility] Comment on above: Performed By: #### 6 30-4 ####[facility]ORATORYCLIA [id number] [address] [place] Bacteria Wnd Culton 07-09-19 22 Bacteria identified Cx Nom (Wound) ORGANISM ID: 1 Coagulase negative staphylococcus Growth in Enrichment Broth Only No susceptibility testing done. Call lab within 72 hours to initiate work-up if clinically indicated. GRAM STAIN: Account credited. Not performed on this specimen type. [facility] Comment on above: Performed By: #### 6 462-6 ####[facility]ORATORYCLIA [id number] [place] [address] [place] Bacteria identified Cx Nom (Wound) ORGANISM ID: 1 Rare Coagulase negative staphylococcus No susceptibility testing done. Call lab within 72 hours to initiate work-up if clinically indicated. GRAM STAIN: Account credited. Not performed on this specimen type. [facility] Comment on above: Performed By: #### 6 462-6 ####[facility]ORATORYCLIA [id number] [address] STATES OF [facility] Bacteria identified Cx Nom (Wound) CULTURE, INTRAOPERATIVE HARDWARE: No growth 14 days GRAM STAIN: Account credited. Not performed on this specimen type. Normal [facility] Comment on above: Performed By: #### 6 462-6 ####[facility]ORATORYCLIA [id number] [place] [address] [place] Basic metabolic 2000 panelon 07-08-2021 Anion gap [Moles/Vol] 9 mmol/L Normal 9-18 [facility] Comment on above: Order Comment: Speci men Type: BLOOD SPECIMENOrdering Facility: [facility] Address: [address] [place] [address] Performed By: #### 2 4321-2 ####[facility]ORATORYCLIA [id number] [place] [address] [place] Calcium [Mass/Vol] 8.5 mg/dL Normal 8.5-10.2 [facility] Comment on above: Order Comment: Speci men Type: BLOOD SPECIMENOrdering Facility: [facility] Address: [address] [address] Performed By: #### 2 4321-2 ####[facility]ORATORYCLIA [id number] [address] Chloride [Moles/Vol] 98 mmol/L Normal 97-105 [facility] Comment on above: Order Comment: Speci men Type: BLOOD SPECIMENOrdering Facility: [facility] Address: [address] [place] [address] Performed By: #### 2 4321-2 ####[facility]ORATORYCLIA [id number] [address] OF [facility] CO2 [Moles/Vol] 31 mmol/L High 22-30 [facility] Comment on above: Order Comment: Speci men Type: BLOOD SPECIMENOrdering Facility: [facility] Address: [address] [place] [address] Performed By: #### 2 4321-2 ####[facility]ITALCLIA [id number] [address] Creatinine [Mass/Vol] 0.64 mg/dL Low 0.73-1.22 [facility] Comment on above: Order Comment: Speci men Type: BLOOD SPECIMENOrdering Facility: [facility] Address: [address] [place] [address] Performed By: #### 2 4321-2 ####[facility]ORATORYCLIA [id number] [address] ESTIMATED GLOMERULAR FILTRATION RATE 102 mL/min/1.73m??? Normal >=60 [facility] Comment on above: Order Comment: Speci men Type: BLOOD SPECIMENOrdering Facility: [facility] Address: [address] [place] [address] Result Comment: Luzmaria mated Glomerular Filtration Rate [...] By: #### 2 4321-2 ####[facility]ORATORYCLIA [id number] [place] [address] [place] Glucose [Mass/Vol] 114 mg/dL High 74-99 [facility] Comment on above: Order Comment: Speci men Type: BLOOD SPECIMENOrdering Facility: [facility] Address: [address] [place] [address] Result Comment: The [place] Diabetes Association (ADA) provides guidance for cutoff [...] Standards of Medical Care in Diabetes 2016, [place] [employer]. Diabetes Care. 2016.39(Suppl 1). Performed By: #### 2 4321-2 ####[facility]ORATORYCLIA [id number] [place] [address] [place] Potassium [Moles/Vol] 3.4 mmol/L Low 3.7-5.1 [facility] Comment on above: Order Comment: Shira feldman Type: BLOOD SPECIMENOrdering Facility: [facility] Address: [address] [place] [address] Performed By: #### 2 4321-2 ####[facility]ORATORYCLIA [id number] [place] [address] [place] Sodium [Moles/Vol] 138 mmol/L Normal 136-144 [facility] Comment on above: Order Comment: Speci men Type: BLOOD SPECIMENOrdering Facility: [facility] Address: [address] [place] [address] Performed By: #### 2 4321-2 ####[facility]ORATORYCLIA [id number] [place] [address] [place] Urea nitrogen [Mass/Vol] 14 mg/dL Normal 9-24 [facility] Comment on above: Order Comment: Speci men Type: BLOOD SPECIMENOrdering Facility: [facility] Address: [address] [place] [address] Performed By: #### 2 4321-2 ####[facility] LABORATORYCLIA [id number] [address] [place] CBC W Auto Differential pane l (Bld)on 07-08-2021 Basophils (Bld) [#/Vol] 0.05 10*3/uL Normal <0.11 [facility] Comment on above: Order Comment: Speci men Type: BLOOD SPECIMENOrdering Facility: [facility] Address: [address] [place] [address] Performed By: #### 5 7021-8 ####[facility] LABORATORYCLIA [id number] [address] [place] Basophils/100 WBC (Bld) 0.4 % Normal [facility] Comment on above: Order Comment: Speci men Type: BLOOD SPECIMENOrdering Facility: [facility] Address: [address] [place] [address] Performed By: #### 5 7021-8 ####[facility]ORATORYCLIA [id number] [address] Differential cell count method Nom (Bld) Auto Normal [facility] Comment on above: Order Comment: Speci men Type: BLOOD SPECIMENOrdering Facility: [facility] Address: [address] [place] [address] Performed By: #### 5 7021-8 ####[facility]ORATORYCLIA [id number] [address] [place] Eosinophils (Bld) [#/Vol] 0.68 10*3/uL High <0.46 [facility] Comment on above: Order Comment: Speci men Type: BLOOD SPECIMENOrdering Facility: [facility] Address: [address] [place] [address] Performed By: #### 5 7021-8 ####[facility]ORATORYCLIA [id number] [address] [place] Eosinophils/100 WBC (Bld) 5.4 % Normal [facility] Comment on above: Order Comment: Speci men Type: BLOOD SPECIMENOrdering Facility: [facility] Address: [address] [place] [address] Performed By: #### 5 7021-8 ####[facility]ORATORYCLIA [id number] [address] STATES [facility] Erythrocyte distribution width (RBC) [Ratio] 16.3 % High 11.5-15.0 [facility] Comment on above: Order Comment: Speci men Type: BLOOD SPECIMENOrdering Facility: [facility] Address: [address] [place] [address] Performed By: #### 5 7021-8 ####[facility]ORATORYCLIA [id number] [address] Hematocrit (Bld) [Volume fraction] 35.7 % Low 39.0-51.0 [facility] Comment on above: Order Comment: Speci men Type: BLOOD SPECIMENOrdering Facility: [facility] Address: [address] [place] [address] Performed By: #### 5 7021-8 ####[facility] LABORATORYCLIA [id number] [address] [place] Hemoglobin (Bld) [Mass/Vol] 10.8 g/dL Low 13.0-17.0 [facility] Comment on above: Order Comment: Speci men Type: BLOOD SPECIMENOrdering Facility: [facility] Address: [address] [place] [address] Performed By: #### 5 7021-8 ####[facility]ORATORYCLIA [id number] [address] IMMATURE GRAN % 0.4 % Normal [facility] Comment on above: Order Comment: Speci men Type: BLOOD SPECIMENOrdering Facility: [facility] Address: [address] [place], [place] [address] Performed By: #### 5 7021-8 ####[facility]ORATORYCLIA [id number] [address] IMMATURE GRAN ABS 0.05 k/uL Normal <0.10 [facility] Comment on above: Order Comment: Speci men Type: BLOOD SPECIMENOrdering Facility: [facility] Address: [address] [place] [address] Performed By: #### 5 7021-8 ####[facility] LABORATORYCLIA [id number] [address] Lymphocytes (Bld) [#/Vol] 1.85 10*3/uL Normal 1.00-4.00 [facility] Comment on above: Order Comment: Speci men Type: BLOOD SPECIMENOrdering Facility: [facility] Address: [address] [place] [address] Performed By: #### 5 7021-8 ####[facility] LABORATORYCLIA [id number] [address] Lymphocytes/100 WBC (Bld) 14.7 % Normal [facility] Comment on above: Order Comment: Speci men Type: BLOOD SPECIMENOrdering Facility: [facility] Address: [address] [place] [address] Performed By: #### 5 7021-8 ####[facility] LABORATORYCLIA [id number] [address] MCH (RBC) [Entitic mass] 27.1 pg Normal 26.0-34.0 [facility] Comment on above: Order Comment: Speci men Type: BLOOD SPECIMENOrdering Facility: [facility] Address: [address] [place] [address] Performed By: #### 5 7021-8 ####[facility] LABORATORYCLIA [id number] [address] [place] MCHC (RBC) [Mass/Vol] 30.3 g/dL Low 30.5-36.0 [facility] Comment on above: Order Comment: Speci men Type: BLOOD SPECIMENOrdering Facility: [facility] Address: [address] [place] [address] Performed By: #### 5 7021-8 ####[facility] LABORATORYCLIA [id number] [address] [place] MCV (RBC) [Entitic vol] 89.7 fL Normal 80.0-100.0 [facility] Comment on above: Order Comment: Speci men Type: BLOOD SPECIMENOrdering Facility: [facility] Address: [address] [place] [address] Performed By: #### 5 7021-8 ####[facility] LABORATORYCLIA [id number] [address] [place] Monocytes (Bld) [#/Vol] 0.87 10*3/uL High <0.87 [facility] Comment on above: Order Comment: Speci men Type: BLOOD SPECIMENOrdering Facility: [facility] Address: [address] [place] [address] Performed By: #### 5 7021-8 ####[facility] LABORATORYCLIA [id number] [address] OF [facility] Monocytes/100 WBC (Bld) 6.9 % Normal [facility] Comment on above: Order Comment: Speci men Type: BLOOD SPECIMENOrdering Facility: [facility] Address: [address] [place] [address] Performed By: #### 5 7021-8 ####[facility] LABORATORYCLIA [id number] [address] [place] Neutrophils (Bld) [#/Vol] 9.05 10*3/uL High 1.45-7.50 [facility] Comment on above: Order Comment: Speci men Type: BLOOD SPECIMENOrdering Facility: [facility] Address: [address] [place] [address] Performed By: #### 5 7021-8 ####[facility] LABORATORYCLIA [id number] [address] [place] Neutrophils/100 WBC (Bld) 72.2 % Normal [facility] Comment on above: Order Comment: Speci men Type: BLOOD SPECIMENOrdering Facility: [facility] Address: [address] [place] [address] Performed By: #### 5 7021-8 ####[facility] LABORATORYCLIA [id number] [address] [place] Nucleated RBC (Bld) [#/Vol] 10*3/uL Normal <0.01 [facility] Comment on above: Order Comment: Speci men Type: BLOOD SPECIMENOrdering Facility: [facility] Address: [address] [place] [address] Performed By: #### 5 7021-8 ####[place] [facility] LABORATORYCLIA [id number] [address] [place] [facility] Nucleated RBC/100 WBC (Bld) [Ratio] 0.0 /100 WBC Normal [facility] Comment on above: Order Comment: Speci men Type: BLOOD SPECIMENOrdering Facility: [facility] Address: [address] [place] [address] Performed By: #### 5 7021-8 ####[place] [facility] LABORATORYCLIA [id number] [address] [place] Platelet mean volume (Bld) [Entitic vol] 9.9 fL Normal 9.0-12.7 [facility] Comment on above: Order Comment: Speci men Type: BLOOD SPECIMENOrdering Facility: [facility] Address: [address] [place] [address] Performed By: #### 5 7021-8 ####[place] [facility] LABORATORYCLIA [id number] [place] [address] [place] Platelets (Bld) [#/Vol] 335 10*3/uL Normal 150-400 [facility] Comment on above: Order Comment: Speci men Type: BLOOD SPECIMENOrdering Facility: [facility] Address: [address] [place] [address] Performed By: #### 5 7021-8 ####[place] [facility] LABORATORYCLIA [id number] [address] STATES OF [facility] RBC (Bld) [#/Vol] 3.98 10*6/uL Low 4.20-6.00 [facility] Comment on above: Order Comment: Speci men Type: BLOOD SPECIMENOrdering Facility: [facility] Address: [address] [place] [address] Performed By: #### 5 7021-8 ####[place] [facility] LABORATORYCLIA [id number] [address] STATES OF [facility] WBC (Bld) [#/Vol] 12.55 10*3/uL High 3.70-11.00 [facility] Comment on above: Order Comment: Speci men Type: BLOOD SPECIMENOrdering Facility: [facility] Address: [address] [place] [address] Performed By: #### 5 7021-8 ####[place] [facility] LABORATORYCLIA [id number] [address] CK CREATINE KINASEon 022 CK [Catalytic activity/Vol] 72 U/L Normal 51-298 [facility] Comment on above: Order Comment: Speci men Type: BLOOD SPECIMENOrdering Facility: [facility] Address: [address] [place] [address] Performed By: #### Eileen Valdivia, 40173-2 ####[place] [facility] LABORATORYCLIA [id number] [address] CONSULT PROGon 07-08-2021 CONSULT PROG Normal [facility] CONSULT PROG Normal [facility] CSF MANUAL DIFFon 07-08-2021 DIF TTL, CSF 3 cells counted Normal [facility] Comment on above: Order Comment: Speci men Type: CEREBROSPINAL FLUIDOrdering Facility: [facility] Address: [address] [place] [address] Performed By: #### 3 4563-7, [id number] ####[facility]ORATORYCLIA [id number] [address] [place] LYMPH%, CSF 33 % Low 50-90 [facility] Comment on above: Order Comment: Speci men Type: CEREBROSPINAL FLUIDOrdering Facility: [facility] Address: [address] [place] [address] Performed By: #### 3 4563-7, [id number] ####[place] [facility] LABORATORYCLIA [id number] [address] [place] MONO%, CSF 67 % High 10-50 [facility] Comment on above: Order Comment: Speci men Type: CEREBROSPINAL FLUIDOrdering Facility: [facility] Address: [address] [place] [address] Performed By: #### 3 4563-7, [id number] ####[place] [facility] LABORATORYCLIA [id number] [address] [place] CT ABD/PEL W IVCONon 022 CT ABD/PEL W IVCON Normal [facility] CT BRAIN WO IVCONon 07-09-[address] BRAIN WO IVCON Normal [facility] CT BRAIN WO IVCON Normal [facility] CT CHEST W IVCON PEon 2021 CT CHEST W IVCON PE Normal [facility] Cell count panel (CSF)on Clarity (CSF) Clear Normal Clear [facility] Comment on above: Order Comment: Speci men Type: CEREBROSPINAL FLUIDOrdering Facility: [facility] Address: [address] [place] [address] Performed By: #### 3 4563-7, [id number] ####[facility]ORATORYCLIA [id number] [address] Clarity (Unsp spec) Clear Normal Clear [facility] Comment on above: Order Comment: Speci men Type: CEREBROSPINAL FLUIDOrdering Facility: [facility] Address: [address] [place] [address] Performed By: #### 3 4563-7, [id number] ####[facility] LABORATORYCLIA [id number] [address] Color (CSF) Colorless Normal Colorless [facility] Comment on above: Order Comment: Speci men Type: CEREBROSPINAL FLUIDOrdering Facility: [facility] Address: [address] [address] Performed By: #### 3 4563-7, [id number] ####[facility]ORATORYCLIA [id number] [address] OF [facility] Color (Spun CSF) Colorless Normal Colorless [facility] Comment on above: Order Comment: Speci men Type: CEREBROSPINAL FLUIDOrdering Facility: [facility] Address: [address] [place] [address] Performed By: #### 3 4563-7, [id number] ####[facility] LABORATORYCLIA [id number] [address] OF [facility] CSF TUBE NUMBER [employer] Normal [facility] Comment on above: Order Comment: Speci men Type: CEREBROSPINAL FLUIDOrdering Facility: [facility] Address: [address] [place] [address] Performed By: #### 3 4563-7, [id number] ####[facility] LABORATORYCLIA [id number] [address] OF [place] RBC Manual cnt (CSF) [#/Vol] 94 cells/uL High 0-5 [facility] Comment on above: Order Comment: Speci men Type: CEREBROSPINAL FLUIDOrdering Facility: [facility] Address: [address] [address] Performed By: #### 3 4563-7, [id number] ####[facility]ORATORYCLIA [id number] [address] WBC Manual cnt (CSF) [#/Vol] 1 cells/uL Normal 0-[address] [place] [address] Comment on above: Order Comment: Speci men Type: CEREBROSPINAL FLUIDOrdering Facility: [facility] Address: [address] [place] [address] Performed By: #### 3 4563-7, [id number] ####[place] [facility] LABORATORYCLIA [id number] [address] OF [facility] Comprehensive metabolic 2000 panelon 07-08-2021 Albumin [Mass/Vol] 3.6 g/dL Low 3.9-4.9 [facility] Comment on above: Order Comment: Speci men Type: BLOOD SPECIMENOrdering Facility: [facility] Address: [address] [place] [address] Performed By: #### Eileen Valdivia, 49229-0 ####[place] [facility] LABORATORYCLIA [id number] [address] [place] ALP [Catalytic activity/Vol] 125 U/L High 38-113 [facility] Comment on above: Order Comment: Speci men Type: BLOOD SPECIMENOrdering Facility: [facility] Address: [address] [place] [address] Performed By: #### Eileen Valdivia, 63529-0 ####[place] [facility] LABORATORYCLIA [id number] [address] ALT With P-5'-P [Catalytic activity/Vol] 24 U/L Normal 10-54 [facility] Comment on above: Order Comment: Speci men Type: BLOOD SPECIMENOrdering Facility: [facility] Address: [address] [place] [address] Performed By: #### Eileen Valdivia, 18909-1 ####[place] [facility] LABORATORYCLIA [id number] [address] Anion gap [Moles/Vol] 16 mmol/L Normal 9-18 [facility] Comment on above: Order Comment: Speci men Type: BLOOD SPECIMENOrdering Facility: [facility] Address: [address] [place] [address] Performed By: #### Eileen Valdivia, 00569-7 ####[place] [facility] LABORATORYCLIA [id number] [address] [place] AST With P-5'-P [Catalytic activity/Vol] 21 U/L Normal 14-40 [facility] Comment on above: Order Comment: Speci men Type: BLOOD SPECIMENOrdering Facility: [facility] Address: [address] [place] [address] Performed By: #### Eileen Valdivia, 91804-3 ####[facility] LABORATORYCLIA [id number] [place] [address] [place] Bilirubin [Mass/Vol] 0.3 mg/dL Normal 0.2-1.3 [facility] Comment on above: Order Comment: Speci men Type: BLOOD SPECIMENOrdering Facility: [facility] Address: [address] [place] [address] Performed By: #### Eileen Valdivia, 76544-3 ####[facility]ORATORYCLIA [id number] [place] [address] [place] Calcium [Mass/Vol] 8.9 mg/dL Normal 8.5-10.2 [facility] Comment on above: Order Comment: Speci men Type: BLOOD SPECIMENOrdering Facility: [facility] Address: [address] [place] [address] Performed By: #### Eileen Valdivia, 75963-1 ####[facility]ORATORYCLIA [id number] [place] [address] [place] Chloride [Moles/Vol] 96 mmol/L Low 97-105 [facility] Comment on above: Order Comment: Speci men Type: BLOOD SPECIMENOrdering Facility: [facility] Address: [address] [place] [address] Performed By: #### Eileen Valdivia, 62399-3 ####[facility]ORATORYCLIA [id number] [place] [address] [place] CO2 [Moles/Vol] 27 mmol/L Normal 22-30 [facility] Comment on above: Order Comment: Speci men Type: BLOOD SPECIMENOrdering Facility: [facility] Address: [address] [place] [address] Performed By: #### Eileen Valdivia, 07149-3 ####[facility]ORATORYCLIA [id number] [address] [place] Creatinine [Mass/Vol] 0.68 mg/dL Low 0.73-1.22 [facility] Comment on above: Order Comment: Shira feldman Type: BLOOD SPECIMENOrdering Facility: [facility] Address: [address] [address] Performed By: #### Eileen Valdivia, 76546-9 ####[facility]'S CENTERIA [id number] [address] ESTIMATED GLOMERULAR FILTRATION RATE 101 mL/min/1.73m??? Normal >=60 [facility] Comment on above: Order Comment: Shira feldman Type: BLOOD SPECIMENOrdering Facility: [facility] Address: [address] [place] [address] Result Comment: Luzmaria mated Glomerular Filtration Rate [...] actual GFR. Performed By: #### Eileen Valdivia, 92746-4 ####[facility]'S CENTERIA [id number] [address] STATES OF [facility] Glucose [Mass/Vol] 130 mg/dL High 74-99 [facility] Comment on above: Order Comment: Shira feldman Type: BLOOD SPECIMENOrdering Facility: [facility] Address: [address] [place] [address] Result Comment: The [place] Diabetes Association (ADA) provides guidance for cutoff [...] Standards of Medical Care in Diabetes 2016, [place] [employer]. Diabetes Care. 2016.39(Suppl 1). Performed By: #### Eileen Valdivia, 77913-7 ####[facility]ORATORYCLIA [id number] [address] STATES OF [facility] Potassium [Moles/Vol] 3.9 mmol/L Normal 3.7-5.1 [facility] Comment on above: Order Comment: Speci men Type: BLOOD SPECIMENOrdering Facility: [facility] Address: [address] [place] [address] Performed By: #### Eileen Valdivia, 58590-3 ####[place] [facility]ORATORYCLIA [id number] [address] STATES OF [facility] Protein [Mass/Vol] 7.0 g/dL Normal 6.3-8.0 [facility] Comment on above: Order Comment: Speci men Type: BLOOD SPECIMENOrdering Facility: [facility] Address: [address] [place] [address] Performed By: #### Eileen Valdivia, 56848-9 ####[place]ORATORYCLIA [id number] [address] Sodium [Moles/Vol] 139 mmol/L Normal 136-144 [facility] Comment on above: Order Comment: Speci men Type: BLOOD SPECIMENOrdering Facility: [facility] Address: [address] [place] [address] Performed By: #### Eileen Valdivia, 70170-6 ####[place] LABORATORYCLIA [id number] [address] [place] Urea nitrogen [Mass/Vol] 16 mg/dL Normal 9-24 [facility] Comment on above: Order Comment: Speci men Type: BLOOD SPECIMENOrdering Facility: [facility] Address: [address] [address] Performed By: #### Eileen Valdivia, 73117-4 ####[facility] LABORATORYCLIA [id number] [address] [place] ED NOTEon 07-08-2021 ED NOTE HNO ID: [id number] Author: Lenora James RN Service: Emergency Medicine Author Type: Registered Nurse Type: ED Notes Filed: 07/08/2021 5:03 PM Note Text: Pt to OR with surgical team [facility] ED NOTE HNO ID: [id number] Author: Lenora James RN Service: Emergency Medicine Author Type: Registered Nurse Type: ED Notes Filed: 07/08/2021 4:50 PM Note Text: OR team to get pt [facility] ED NOTE HNO ID: [id number] Author: Lenora James RN Service: Emergency Medicine Author Type: Registered Nurse Type: ED Notes Filed: 07/08/2021 4:50 PM Note Text: [facility] ED NOTE HNO ID: [id number] Author: Lenora James RN Service: Emergency Medicine Author Type: Registered Nurse Type: ED Notes Filed: 07/08/2021 4:50 PM Note Text: Spoke with presurg; pt to go to OR now [facility] ED NOTE HNO ID: [id number] Author: Lenora James RN Service: Emergency Medicine Author Type: Registered Nurse Type: ED Notes Filed: 07/08/2021 4:12 PM Note Text: Neurosurgery at beside [facility] ED NOTE HNO ID: [id number] Author: Lenora James RN Service: Emergency Medicine Author Type: Registered Nurse Type: ED Notes Filed: 07/08/2021 2:35 PM Note Text: respiratory aware of pt breathing treatments [facility] ED NOTE HNO ID: [id number] Author: Lisa Woo RN Service: ? Author Type: Registered Nurse Type: ED Notes Filed: 07/08/2021 2:20 PM Note Text: Xray notified pt is ready. [facility] ED NOTE HNO ID: [id number] Author: Lenora James RN Service: Emergency Medicine Author Type: Registered Nurse Type: ED Notes Filed: 07/08/2021 12:14 PM Note Text: CT notified regarding imaging orders placed [facility] ED NOTE Normal [facility] ED PROV NOTEon 07-08-2021 ED PROV NOTE Normal [facility] Glucose CSF-mCncon 2 Glucose (CSF) [Mass/Vol] 88 mg/dL High 40-70 [facility] Comment on above: Order Comment: Shira feldman Type: CEREBROSPINAL FLUIDOrdering Facility: [facility] Address: [address] [place] [address] Result Comment: Lumb ar CSF glucose values of healthy patients are approximately 60% of the plasma values and must always be compared with a concurrently measured plasma value for adequate clinical interpretation.References: 1. Glucose HK (GLUC3) [package insert V 12.0 Armenian]. [employer], [place], [place]. September 2015. 2. Michelle Moore, Loki HGarfield (2015). Chapter 7: Glucose and Lactate. Marianela Rothman.(eds.), Cerebrospinal Fluid in Clinical Neurology. Miner: Hubub. Performed By: #### 2 880-3, 2342-4 ####[place] LABORATORYCLIA [id number] [address] HIGH SENSITIVITY TROPONIN To n 07-08-2021 HIGH SENSITIVITY TAMIKO 27 ng/L High <12 [facility] Comment on above: Order Comment: Shira feldman Type: BLOOD SPECIMENOrdering Facility: [facility] Address: [address] [place] [address] Result Comment: When assessing risk for acute [...] By: #### H STNT ####[place]ORATORYCLIA [id number] [address] HIGH SENSITIVITY TAMIKO 36 ng/L High <12 [facility] Comment on above: Order Comment: Shira feldman Type: BLOOD SPECIMENOrdering Facility: [facility] Address: [address] [place], [place] [address] Result Comment: When assessing risk for acute [...] By: #### H STNT ####[place] LABORATORYCLIA [id number] [address] OF [facility] HISTORY PHYSICALon 2 HISTORY PHYSICAL Normal [facility] NURSING PROGon 07-08-2021 NURSING PROG Normal [facility] OPERATIVE NOon 07-08-2021 OPERATIVE NO Normal [facility] Prot CSF-mCncon 07-08-2021 Protein (CSF) [Mass/Vol] 33 mg/dL Normal 15-45 [facility] Comment on above: Order Comment: Speci men Type: CEREBROSPINAL FLUIDOrdering Facility: [facility] Address: [address] [place] [address] Performed By: #### 2 880-3, 2342-4 ####[place]ORATORYCLIA [id number] [address] OF [facility] SARS-CoV-2 RNA Resp Ql MEGAN+p robeon 07-08-2021 SARS-CoV-2 (COVID-19) RNA MEGAN+probe Ql (Resp) COVID 19 RESULT: SARS-CoV-2 (Agent of COVID-19) Not Detected by RT-PCR or equivalent method. This test has been authorized by FDA under an Emergency Use Authorization (EUA). Normal [facility] Comment on above: Performed By: #### 9 4500-6 ####[place]ORATORYCLIA [id number] [address] OF [place] STAPH AUREUS PCRon 2 S. aureus and MRSA panel MEGAN+probe (Nose) Normal Negative [facility] Comment on above: Order Comment: Speci men Type: SWAB OF INTERNAL NOSEOrdering Facility: [facility] Address: [address] [address] Result Comment: Nega tive for Staphylococcus aureus by PCR.Negative for MRSA by PCR Performed By: #### S APCR ####[place]ORATORYCLIA [id number] [address] Urinalysis complete panel (U )on 07-08-2021 Bacteria LM.HPF (Urine sed) [#/Area] Few Abnormal None Seen [facility] Comment on above: Order Comment: Speci men Type: URINE SPECIMENOrdering Facility: [facility] Address: [address] [place] [address] Performed By: #### 2 4356-8 ####[place]ORATORYCLIA [id number] [address] Bilirubin Ql (U) Negative Normal Negative [facility] Comment on above: Order Comment: Speci men Type: URINE SPECIMENOrdering Facility: [facility] Address: [address] [place] [address] Performed By: #### 2 4356-8 ####[facility]ATORYCLIA [id number] [address] Clarity (Unsp spec) Turbid Abnormal Clear [facility] Comment on above: Order Comment: Speci men Type: URINE SPECIMENOrdering Facility: [facility] Address: [address] [place] [address] Performed By: #### 2 4356-8 ####[place]ORATORYCLIA [id number] [address] Color (U) Light Yellow Normal yellow [facility] Comment on above: Order Comment: Speci men Type: URINE SPECIMENOrdering Facility: [facility] Address: [address] [place] [address] Performed By: #### 2 4356-8 ####[facility]ATORYCLIA [id number] [address] Glucose Test strip (U) [Mass/Vol] Negative Normal Negative [facility] Comment on above: Order Comment: Speci men Type: URINE SPECIMENOrdering Facility: [facility] Address: [address] [place] [address] Performed By: #### 2 4356-8 ####[facility]ATORYCLIA [id number] [address] [place] [facility] Hemoglobin Ql (U) Negative Normal Negative [facility] Comment on above: Order Comment: Speci men Type: URINE SPECIMENOrdering Facility: [facility] Address: [address] [place] [address] Performed By: #### 2 4356-8 ####[facility] LABORATORYCLIA [id number] [address] Hyaline casts (Urine sed) [#/Area] 1-3 /LPF Abnormal 0 /LPF [facility] Comment on above: Order Comment: Speci men Type: URINE SPECIMENOrdering Facility: [facility] Address: [address] [place] [address] Performed By: #### 2 4356-8 ####[facility]ORATORYCLIA [id number] [address] [place] Ketones Ql (U) Negative Normal Negative [facility] Comment on above: Order Comment: Speci men Type: URINE SPECIMENOrdering Facility: [facility] Address: [address] [place] [address] Performed By: #### 2 4356-8 ####[facility]ORATORYCLIA [id number] [address] [place] [facility] Leukocyte esterase Test strip Ql (U) Negative Normal Negative [facility] Comment on above: Order Comment: Speci men Type: URINE SPECIMENOrdering Facility: [facility] Address: [address] [place] [address] Performed By: #### 2 4356-8 ####[facility]ATORYCLIA [id number] [place] [address] [place] Nitrite Ql (U) Negative Normal Negative [facility] Comment on above: Order Comment: Speci men Type: URINE SPECIMENOrdering Facility: [facility] Address: [address] [place] [address] Performed By: #### 2 4356-8 ####[facility]ORATORYCLIA [id number] [address] pH (U) 5.0 [pH] Normal 5.0-8.0 [facility] Comment on above: Order Comment: Speci men Type: URINE SPECIMENOrdering Facility: [facility] Address: [address] [place] [address] Performed By: #### 2 4356-8 ####[facility]ATORYCLIA [id number] [address] Protein (U) [Mass/Vol] Negative Normal Negative [facility] Comment on above: Order Comment: Speci men Type: URINE SPECIMENOrdering Facility: [facility] Address: [address] [place] [address] Performed By: #### 2 4356-8 ####[facility]ORATORYCLIA [id number] [address] [place] [facility] RBC LM.HPF (Urine sed) [#/Area] 11-25 /HPF Abnormal 0-3 /HPF [facility] Comment on above: Order Comment: Speci men Type: URINE SPECIMENOrdering Facility: [facility] Address: [address] [place] [address] Performed By: #### 2 4356-8 ####[facility]ORATORYCLIA [id number] [address] Specific gravity (U) [Rel density] 1.018 Normal 1.005-1.030 [facility] Comment on above: Order Comment: Speci men Type: URINE SPECIMENOrdering Facility: [facility] Address: [address] [place] [address] Performed By: #### 2 4356-8 ####[facility]ORATORYCLIA [id number] [address] Urobilinogen Ql (U) Normal Normal Negative [facility] Comment on above: Order Comment: Speci men Type: URINE SPECIMENOrdering Facility: [facility] Address: [address] [place] [address] Performed By: #### 2 4356-8 ####[facility]ORATORYCLIA [id number] [address] WBC LM.HPF (Urine sed) [#/Area] /[HPF] Abnormal 0-5 /HPF [facility] Comment on above: Order Comment: Speci men Type: URINE SPECIMENOrdering Facility: [facility] Address: [address] [place] [address] Performed By: #### 2 4356-8 ####[facility]ORATORYCLIA [id number] [address] OF [facility] Vancomycin random [Mass/Vol] on 07-08-2021 Vancomycin [Mass/Vol] 31.0 ug/mL High 10.0-20.0 [facility] Comment on above: Order Comment: Speci men Type: BLOOD SPECIMENOrdering Facility: [facility] Address: [address] [place] [address] Result Comment: Refe rence ranges and high/low indicator flags are provided as general guidelines only. The treating physician must determine appropriate target levels/dosing based on the specific clinical situation. Performed By: #### 4 091-5 ####[facility] LABORATORYCLIA [id number] [address] OF [facility] XR ABD 2V SUPINE W UPR/DECUB /CTLon 07-08-2021 XR ABD 2V SUPINE W UPR/DECUB/CTL Normal [facility] XR CHEST 1V FRONTALon 2021 XR CHEST 1V FRONTAL Normal [facility] XR CHEST 1V FRONTAL Normal [facility] XR NECK SOFT TISSUE 2V AP/LA Ton 07-08-2021 XR NECK SOFT TISSUE 2V AP/LAT Normal [facility] XR SKULL 2V AP/LATon 022 XR SKULL 2V AP/LAT Normal [facility] HISTORY PHYSICALon HISTORY PHYSICAL HNO ID: [id number] Author: Amy Beltran MD Service: ? Author Type: Physician Type: HANDP Filed: 06/30/2021 6:42 PM Note Text: Connected Care Unit History and Physical Facility: [place] Level of Care: Skilled Admission Date: June [...] regarding the above plan. Total time spent [id number] and/or counseling and coordinating care on the skilled care unit for patient was approximately 45 minutes SUBJECTIVE (HISTORY) Chief Complaint: Confusion, infection, blood clot. Andrew Sifuentes is being seen today for shelter facility (SNF) admission AND management of weakness, tube feed, infected retroperitoneal infection and seizure. HPI: This is a 71 year old male who presents from [facility] with primary admitting diagnosis of [...] CT brain concerning for hydrocephalus. Tip of [employer] shunt was found to be in the [...] Status: Fu (more content not included)... Normal [facility] Basic metabolic 2000 panelon 06-28-2021 Anion gap [Moles/Vol] 7 mmol/L Low 9-18 [facility] Comment on above: Order Comment: Speci men Type: BLOOD SPECIMENOrdering Facility: [facility] Address: [address] [place] [address] Performed By: #### 2 43205-08, ####[facility] LABORATORYCLIA [id number] [place] [address] [place] Calcium [Mass/Vol] 8.8 mg/dL Normal 8.5-10.2 [facility] Comment on above: Order Comment: Speci men Type: BLOOD SPECIMENOrdering Facility: [facility] Address: [address] [place] [address] Performed By: #### 2 4320-06, ####[facility] LABORATORYCLIA [id number] [place] [address] [place] Chloride [Moles/Vol] 103 mmol/L Normal 97-105 [facility] Comment on above: Order Comment: Speci men Type: BLOOD SPECIMENOrdering Facility: [facility] Address: [address] [place] [address] Performed By: #### 2 2, ####[facility] LABORATORYCLIA [id number] [place] [address] [place] CO2 [Moles/Vol] 28 mmol/L Normal 22-30 [facility] Comment on above: Order Comment: Speci men Type: BLOOD SPECIMENOrdering Facility: [facility] Address: [address] Performed By: #### 2 4321-2, ####[facility] LABORATORYCLIA [id number] [place] [id number] [place] Creatinine [Mass/Vol] 0.57 mg/dL Low 0.73-1.22 [facility] Comment on above: Order Comment: Shira feldman Type: BLOOD SPECIMENOrdering Facility: [facility] Address: [address] [address] Performed By: #### 2 4322, ####[facility] LABORATORYCLIA [id number] [address] [place] GFR/1.73 sq M.predicted MDRD (S/P/Bld) [Vol rate/Area] mL/min/{1.73_m2} Normal [facility] Comment on above: Order Comment: Shira feldman Type: BLOOD SPECIMENOrdering Facility: [facility] Address: [address] [place] [address] Result Comment: >60e GFR (Estimated GFR) Units [...] By: #### 2 432-2, ####[facility] LABORATORYCLIA [id number] [place] [id number] [place] Glucose [Mass/Vol] 120 mg/dL High 74-99 [facility] Comment on above: Order Comment: Shira francia Type: BLOOD SPECIMENOrdering Facility: [facility] Address: [address] [address] Result Comment: The [place] Diabetes Association (ADA) provides guidance for cutoff [...] Standards of Medical Care in Diabetes 2016, [place] [employer]. Diabetes Care. 2016.39(Suppl 1). Performed By: #### 2 ####[facility] LABORATORYCLIA [id number] [place] [address] [place] Potassium [Moles/Vol] 3.8 mmol/L Normal 3.7-5.1 [facility] Comment on above: Order Comment: Speci men Type: BLOOD SPECIMENOrdering Facility: [facility] Address: [address] [place] [address] Performed By: #### 2 ####[facility] LABORATORYCLIA [id number] [place] [address] [place] Sodium [Moles/Vol] 138 mmol/L Normal 136-144 [facility] Comment on above: Order Comment: Speci men Type: BLOOD SPECIMENOrdering Facility: [facility] Address: [address] [place] [address] Performed By: #### 2 ####[facility] LABORATORYCLIA [id number] [place] [address] [place] Urea nitrogen [Mass/Vol] 24 mg/dL Normal 9-24 [facility] Comment on above: Order Comment: Speci men Type: BLOOD SPECIMENOrdering Facility: [facility] Address: [address] [address] Performed By: #### 2 ####[facility] LABORATORYCLIA [id number] [address] [place] CASE MANAGEMon 06-28-2021 CASE MANAGEM Normal [facility] CBC panel Auto (Bld)on 06-28 Erythrocyte distribution width (RBC) [Ratio] 15.6 % High 11.5-15.0 [facility] Comment on above: Order Comment: Speci men Type: BLOOD SPECIMENOrdering Facility: [facility] Address: [address] [place] [address] Performed By: #### 5 8410-2 ####[facility] LABORATORYCLIA [id number] [address] Hematocrit (Bld) [Volume fraction] 30.5 % Low 39.0-51.0 [facility] Comment on above: Order Comment: Speci men Type: BLOOD SPECIMENOrdering Facility: [facility] Address: [address] [place] [address] Performed By: #### 5 8410-2 ####[facility] LABORATORYCLIA [id number] [address] Hemoglobin (Bld) [Mass/Vol] 9.4 g/dL Low 13.0-17.0 [facility] Comment on above: Order Comment: Speci men Type: BLOOD SPECIMENOrdering Facility: [facility] Address: [address] [place] [address] Performed By: #### 5 8410-2 ####[facility] LABORATORYCLIA [id number] [address] MCH (RBC) [Entitic mass] 27.8 pg Normal 26.0-34.0 [facility] Comment on above: Order Comment: Speci men Type: BLOOD SPECIMENOrdering Facility: [facility] Address: [address] [place] [address] Performed By: #### 5 8410-2 ####[facility] LABORATORYCLIA [id number] [address] [place] MCHC (RBC) [Mass/Vol] 30.8 g/dL Normal 30.5-36.0 [facility] Comment on above: Order Comment: Speci men Type: BLOOD SPECIMENOrdering Facility: [facility] Address: [address] [place], [place] [address] Performed By: #### 5 8410-2 ####[facility] LABORATORYCLIA [id number] [address] MCV (RBC) [Entitic vol] 90.2 fL Normal 80.0-100.0 [facility] Comment on above: Order Comment: Speci men Type: BLOOD SPECIMENOrdering Facility: [facility] Address: [address] [place], [place] [address] Performed By: #### 5 8410-2 ####[facility] LABORATORYCLIA [id number] [address] STATES OF [facility] Nucleated RBC (Bld) [#/Vol] 10*3/uL Normal <0.01 [facility] Comment on above: Order Comment: Speci men Type: BLOOD SPECIMENOrdering Facility: [facility] Address: [address] [place], [place] [address] Performed By: #### 5 8410-2 ####[facility] LABORATORYCLIA [id number] [address] Platelet mean volume (Bld) [Entitic vol] 9.9 fL Normal 9.0-12.7 [facility] Comment on above: Order Comment: Speci men Type: BLOOD SPECIMENOrdering Facility: [facility] Address: [address] [place], [place] [address] Performed By: #### 5 8410-2 ####[facility] LABORATORYCLIA [id number] [address] Platelets (Bld) [#/Vol] 333 10*3/uL Normal 150-400 [facility] Comment on above: Order Comment: Speci men Type: BLOOD SPECIMENOrdering Facility: [facility] Address: [address] [place], [place] [address] Performed By: #### 5 8410-2 ####[facility] LABORATORYCLIA [id number] [place] [address] [place] RBC (Bld) [#/Vol] 3.38 10*6/uL Low 4.20-6.00 [facility] Comment on above: Order Comment: Speci men Type: BLOOD SPECIMENOrdering Facility: [facility] Address: [address] [place] [address] Performed By: #### 5 8410-2 ####[facility] LABORATORYCLIA [id number] [address] STATES OF [facility] WBC (Bld) [#/Vol] 9.71 10*3/uL Normal 3.70-11.00 [facility] Comment on above: Order Comment: Speci men Type: BLOOD SPECIMENOrdering Facility: [facility] Address: [address] [place] [address] Performed By: #### 5 8410-2 ####[facility] LABORATORYCLIA [id number] [address] [place] CNDSon 06-28-2021 CNDS Normal [facility] CONSULT PROGon 06-28-2021 CONSULT PROG Normal [facility] Magnesium SerPl-mCncon 06-28 Magnesium [Mass/Vol] 2.2 mg/dL Normal 1.7-2.3 [facility] Comment on above: Order Comment: Speci men Type: BLOOD SPECIMENOrdering Facility: [facility] Address: [address] [place] [address] Performed By: #### 2 4321-2, 32606-5 ####[facility] LABORATORYCLIA [id number] [address] [place] Vancomycin random [Mass/Vol] on 06-28-2021 Vancomycin [Mass/Vol] 23.0 ug/mL High 10.0-20.0 [facility] Comment on above: Order Comment: Speci men Type: BLOOD SPECIMENOrdering Facility: [facility] Address: [address] [place] [address] Result Comment: Refe rence ranges and high/low indicator flags are provided as general guidelines only. The treating physician must determine appropriate target levels/dosing based on the specific clinical situation. Performed By: #### 4 091-5 ####[facility] LABORATORYCLIA [id number] [place] [address] [place] ALLIED HEALTHon 06-27-2021 ALLIED HEALTH Normal [facility] Basic metabolic 2000 panelon 06-27-2021 Anion gap [Moles/Vol] 10 mmol/L Normal 9-18 [facility] Comment on above: Order Comment: Speci men Type: BLOOD SPECIMENOrdering Facility: [facility] Address: [address] [place] [address] Performed By: #### 2 4321-2, ####[facility] LABORATORYCLIA [id number] [place] [address] [place] Calcium [Mass/Vol] 8.8 mg/dL Normal 8.5-10.2 [facility] Comment on above: Order Comment: Speci men Type: BLOOD SPECIMENOrdering Facility: [facility] Address: [address] [place] [address] Performed By: #### 2 4320-2, ####[facility] LABORATORYCLIA [id number] [place] [address] [place] Chloride [Moles/Vol] 104 mmol/L Normal 97-105 [facility] Comment on above: Order Comment: Speci men Type: BLOOD SPECIMENOrdering Facility: [facility] Address: [address] [address] Performed By: #### 2 4321-2, ####[facility] LABORATORYCLIA [id number] [place] [address] [place] CO2 [Moles/Vol] 26 mmol/L Normal 22-30 [facility] Comment on above: Order Comment: Speci men Type: BLOOD SPECIMENOrdering Facility: [facility] Address: [address] [address] Performed By: #### 2 432-, ####[facility] LABORATORYCLIA [id number] [place] [address] [place] Creatinine [Mass/Vol] 0.57 mg/dL Low 0.73-1.22 [facility] Comment on above: Order Comment: [facility] Type: BLOOD SPECIMENOrdering Facility: [facility] Address: [address] [place], [place] [address] Performed By: #### 2 432-, ####[facility] LABORATORYCLIA [id number] [place] [address] [place] GFR/1.73 sq M.predicted MDRD (S/P/Bld) [Vol rate/Area] mL/min/{1.73_m2} Normal [facility] Comment on above: Order Comment: [facility] Type: BLOOD SPECIMENOrdering Facility: [facility] Address: [address] [place] [address] Result Comment: >60e GFR (Estimated GFR) Units [...] By: #### 2 432-, ####[facility] LABORATORYCLIA [id number] [place] [address] [place] Glucose [Mass/Vol] 133 mg/dL High 74-99 [facility] Comment on above: Order Comment: Shira [facility] Type: BLOOD SPECIMENOrdering Facility: [facility] Address: [address] [place], [place] [address] Result Comment: The [place] Diabetes [employer] (ADA) provides guidance for cutoff [...] Standards of Medical Care in Diabetes 2016, [place] [employer]. Diabetes Care. 2016.39(Suppl 1). Performed By: #### 2 4320-06, ####[facility] LABORATORYCLIA [id number] [place] [address] [place] Potassium [Moles/Vol] 4.2 mmol/L Normal 3.7-5.1 [facility] Comment on above: Order Comment: Speci men Type: BLOOD SPECIMENOrdering Facility: [facility] Address: [address] [place] [address] Performed By: #### 2 4320-06, ####[facility] LABORATORYCLIA [id number] [address] STATES [facility] Sodium [Moles/Vol] 140 mmol/L Normal 136-144 [facility] Comment on above: Order Comment: Shira feldman Type: BLOOD SPECIMENOrdering Facility: [facility] Address: [address] [place] [address] Performed By: #### 2 4320-06, ####[facility] LABORATORYCLIA [id number] [place] [id number] [place] Urea nitrogen [Mass/Vol] 24 mg/dL Normal 9-24 [facility] Comment on above: Order Comment: Johni men Type: BLOOD SPECIMENOrdering Facility: [facility] Address: [address] [place] [address] Performed By: #### 2 ####[facility] LABORATORYCLIA [id number] [place] [id number] [facility] [place] CASE MANAGEMon 06-27-2021 CASE MANAGEM Normal [facility] CBC panel Auto (Bld)on 06-27 Erythrocyte distribution width (RBC) [Ratio] 15.8 % High 11.5-15.0 [facility] Comment on above: Order Comment: Speci men Type: BLOOD SPECIMENOrdering Facility: [facility] Address: [address] [place] [address] Performed By: #### 5 8410-2 ####[facility] LABORATORYCLIA [id number] [address] Hematocrit (Bld) [Volume fraction] 31.4 % Low 39.0-51.0 [facility] Comment on above: Order Comment: Speci men Type: BLOOD SPECIMENOrdering Facility: [facility] Address: [address] [place] [address] Performed By: #### 5 8410-2 ####[facility] LABORATORYCLIA [id number] [address] STATES OF [facility] Hemoglobin (Bld) [Mass/Vol] 9.3 g/dL Low 13.0-17.0 [facility] Comment on above: Order Comment: Speci men Type: BLOOD SPECIMENOrdering Facility: [facility] Address: [address] [place] [address] Performed By: #### 5 8410-2 ####[facility] LABORATORYCLIA [id number] [address] STATES [facility] MCH (RBC) [Entitic mass] 27.0 pg Normal 26.0-34.0 [facility] Comment on above: Order Comment: Speci men Type: BLOOD SPECIMENOrdering Facility: [facility] Address: [address] [place] [address] Performed By: #### 5 8410-2 ####[facility] LABORATORYCLIA [id number] [address] [place] MCHC (RBC) [Mass/Vol] 29.6 g/dL Low 30.5-36.0 [facility] Comment on above: Order Comment: Speci men Type: BLOOD SPECIMENOrdering Facility: [facility] Address: [address] [address] Performed By: #### 5 8410-2 ####[facility] LABORATORYCLIA [id number] [address] MCV (RBC) [Entitic vol] 91.3 fL Normal 80.0-100.0 [facility] Comment on above: Order Comment: Speci men Type: BLOOD SPECIMENOrdering Facility: [facility] Address: [address] [address] Performed By: #### 5 8410-2 ####[facility] LABORATORYCLIA [id number] [address] [place] Nucleated RBC (Bld) [#/Vol] 10*3/uL Normal <0.01 [facility] Comment on above: Order Comment: Speci men Type: BLOOD SPECIMENOrdering Facility: [facility] Address: [address] [place] [address] Performed By: #### 5 8410-2 ####[facility] LABORATORYCLIA [id number] [address] Platelet mean volume (Bld) [Entitic vol] 10.3 fL Normal 9.0-12.7 [facility] Comment on above: Order Comment: Speci men Type: BLOOD SPECIMENOrdering Facility: [facility] Address: [address] Performed By: #### 5 8410-2 ####[facility] LABORATORYCLIA [id number] [address] Platelets (Bld) [#/Vol] 359 10*3/uL Normal 150-400 [facility] Comment on above: Order Comment: Speci men Type: BLOOD SPECIMENOrdering Facility: [facility] Address: [address] [place] [address] Performed By: #### 5 8410-2 ####[facility] LABORATORYCLIA [id number] [address] [place] RBC (Bld) [#/Vol] 3.44 10*6/uL Low 4.20-6.00 [facility] Comment on above: Order Comment: Speci men Type: BLOOD SPECIMENOrdering Facility: [facility] Address: [address] [place] [address] Performed By: #### 5 8410-2 ####[facility] LABORATORYCLIA [id number] [address] OF [facility] WBC (Bld) [#/Vol] 10.73 10*3/uL Normal 3.70-11.00 [facility] Comment on above: Order Comment: Speci men Type: BLOOD SPECIMENOrdering Facility: [facility] Address: [address] [place] [address] Performed By: #### 5 8410-2 ####[facility] LABORATORYCLIA [id number] [address] Magnesium SerPl-mCncon 06-27 Magnesium [Mass/Vol] 2.2 mg/dL Normal 1.7-2.3 [facility] Comment on above: Order Comment: Speci men Type: BLOOD SPECIMENOrdering Facility: [facility] Address: [address] [place] [address] Performed By: #### 2 4321-2, 47587-2 ####[facility] LABORATORYCLIA [id number] [address] NT-proBNP SerPl-mCncon 06-27 Natriuretic peptide.B prohormone N-Terminal [Mass/Vol] 184 pg/mL High <125 [facility] Comment on above: Order Comment: Speci men Type: BLOOD SPECIMENOrdering Facility: [facility] Address: [address] [place] [address] Performed By: #### 3 3762-6 ####[facility] LABORATORYCLIA [id number] [place] [id number] [place] NUTRITIONon 06-27-2021 NUTRITION Normal [facility] THERAPY NTon 06-27-2021 THERAPY NT Normal [facility] THERAPY NT Normal [facility] XR CHEST 1V FRONTALon 2021 XR CHEST 1V FRONTAL Normal [facility] Basic metabolic 2000 panelon 06-26-2021 Anion gap [Moles/Vol] 9 mmol/L Normal 9-18 [facility] Comment on above: Order Comment: Speci men Type: BLOOD SPECIMENOrdering Facility: [facility] Address: [address] [place] [address] Performed By: #### 1 9123-9, 81178-0 ####[facility] LABORATORYCLIA [id number] [place] [address] [place] Calcium [Mass/Vol] 8.7 mg/dL Normal 8.5-10.2 [facility] Comment on above: Order Comment: Speci men Type: BLOOD SPECIMENOrdering Facility: [facility] Address: [address] [place] [address] Performed By: #### 1 9123-9, 30970-1 ####[facility] LABORATORYCLIA [id number] [place] [address] [place] Chloride [Moles/Vol] 105 mmol/L Normal 97-105 [facility] Comment on above: Order Comment: Speci men Type: BLOOD SPECIMENOrdering Facility: [facility] Address: [address] [place] [address] Performed By: #### 1 9123-9, 43730-9 ####[facility] LABORATORYCLIA [id number] [place] [address] [place] CO2 [Moles/Vol] 26 mmol/L Normal 22-30 [facility] Comment on above: Order Comment: Speci men Type: BLOOD SPECIMENOrdering Facility: [facility] Address: [address] [place] [address] Performed By: #### 1 9123-9, 77186-1 ####[facility] LABORATORYCLIA [id number] [place] [address] [place] Creatinine [Mass/Vol] 0.56 mg/dL Low 0.73-1.22 [facility] Comment on above: Order Comment: Shira feldman Type: BLOOD SPECIMENOrdering Facility: [facility] Address: [address] [phone] Performed By: #### 1 9123-9, 06090-9 ####[facility] LABORATORYCLIA [id number] [place] [address] [place] GFR/1.73 sq M.predicted MDRD (S/P/Bld) [Vol rate/Area] mL/min/{1.73_m2} Normal [facility] Comment on above: Order Comment: Johncara feldman Type: BLOOD SPECIMENOrdering Facility: [facility] Address: [address] [place] [address] Result Comment: >60e GFR (Estimated GFR) Units [...] actual GFR. Performed By: #### 1 9123-9, 37648-8 ####[facility] LABORATORYCLIA [id number] [place] [address] [place] Glucose [Mass/Vol] 134 mg/dL High 74-99 [facility] Comment on above: Order Comment: Shira feldman Type: BLOOD SPECIMENOrdering Facility: [facility] Address: [address] [phone] Result Comment: The [place] Diabetes Association (ADA) provides guidance for cutoff [...] Standards of Medical Care in Diabetes 2016, [place] [employer]. Diabetes Care. 2016.39(Suppl 1). Performed By: #### 1 9123-9, 84171-5 ####[facility] LABORATORYCLIA [id number] [address] STATES OF [facility] Potassium [Moles/Vol] 3.8 mmol/L Normal 3.7-5.1 [facility] Comment on above: Order Comment: Shira feldman Type: BLOOD SPECIMENOrdering Facility: [facility] Address: [address] [place] [address] Performed By: #### 1 9123-9, 66811-2 ####[facility] [id number] [address] Sodium [Moles/Vol] 140 mmol/L Normal 136-144 [facility] Comment on above: Order Comment: Johni francia Type: BLOOD SPECIMENOrdering Facility: [facility] Address: [address] [place] [address] Performed By: #### 1 91239, 30870-1 ####[facility] LABORATORYCLIA [id number] [address] Urea nitrogen [Mass/Vol] 24 mg/dL Normal 9-24 [facility] Comment on above: Order Comment: Speci men Type: BLOOD SPECIMENOrdering Facility: [facility] Address: [address] [place] [address] Performed By: #### 1 91239, 31666-5 ####[facility] LABORATORYCLIA [id number] [address] CBC panel Auto (Bld)on 06-26 Erythrocyte distribution width (RBC) [Ratio] 15.9 % High 11.5-15.0 [facility] Comment on above: Order Comment: Speci men Type: BLOOD SPECIMENOrdering Facility: [facility] Address: [address] [place] [address] Performed By: #### 5 8410-2 ####[facility] LABORATORYCLIA [id number] [address] Hematocrit (Bld) [Volume fraction] 29.8 % Low 39.0-51.0 [facility] Comment on above: Order Comment: Speci men Type: BLOOD SPECIMENOrdering Facility: [facility] Address: [address] [place] [address] Performed By: #### 5 8410-2 ####[facility] LABORATORYCLIA [id number] [address] OF [facility] Hemoglobin (Bld) [Mass/Vol] 9.1 g/dL Low 13.0-17.0 [facility] Comment on above: Order Comment: Speci men Type: BLOOD SPECIMENOrdering Facility: [facility] Address: [address] [place] [address] Performed By: #### 5 8410-2 ####[facility]ORATORYCLIA [id number] [address] OF [facility] MCH (RBC) [Entitic mass] 27.8 pg Normal 26.0-34.0 [facility] Comment on above: Order Comment: Speci men Type: BLOOD SPECIMENOrdering Facility: [facility] Address: [address] [place] [address] Performed By: #### 5 8410-2 ####[facility]ORATORYCLIA [id number] [address] [place] MCHC (RBC) [Mass/Vol] 30.5 g/dL Normal 30.5-36.0 [facility] Comment on above: Order Comment: Speci men Type: BLOOD SPECIMENOrdering Facility: [facility] Address: [address] [place] [address] Performed By: #### 5 8410-2 ####[facility] LABORATORYCLIA [id number] [address] MCV (RBC) [Entitic vol] 91.1 fL Normal 80.0-100.0 [facility] Comment on above: Order Comment: Speci men Type: BLOOD SPECIMENOrdering Facility: [facility] Address: [address] [place] [address] Performed By: #### 5 8410-2 ####[facility]ORATORYCLIA [id number] [address] Nucleated RBC (Bld) [#/Vol] 10*3/uL Normal <0.01 [facility] Comment on above: Order Comment: Speci men Type: BLOOD SPECIMENOrdering Facility: [facility] Address: [address] [place] [address] Performed By: #### 5 8410-2 ####[facility] LABORATORYCLIA [id number] [address] Platelet mean volume (Bld) [Entitic vol] 10.3 fL Normal 9.0-12.7 [facility] Comment on above: Order Comment: Speci men Type: BLOOD SPECIMENOrdering Facility: [facility] Address: [address] [place] [address] Performed By: #### 5 8410-2 ####[facility]ORATORYCLIA [id number] [address] Platelets (Bld) [#/Vol] 336 10*3/uL Normal 150-400 [facility] Comment on above: Order Comment: Speci men Type: BLOOD SPECIMENOrdering Facility: [facility] Address: [address] [place] [address] Performed By: #### 5 8410-2 ####[facility] LABORATORYCLIA [id number] [address] OF [place] RBC (Bld) [#/Vol] 3.27 10*6/uL Low 4.20-6.00 [facility] Comment on above: Order Comment: Speci men Type: BLOOD SPECIMENOrdering Facility: [facility] Address: [address] [place] [address] Performed By: #### 5 8410-2 ####[facility] LABORATORYCLIA [id number] [place] [address] [place] WBC (Bld) [#/Vol] 9.14 10*3/uL Normal 3.70-11.00 [facility] Comment on above: Order Comment: Speci men Type: BLOOD SPECIMENOrdering Facility: [facility] Address: [address] [place] [address] Performed By: #### 5 8410-2 ####[facility]ORATORYCLIA [id number] [address] CONSULT PROGon 06-26-2021 CONSULT PROG Normal [facility] Magnesium SerPl-mCncon 06-26 Magnesium [Mass/Vol] 2.2 mg/dL Normal 1.7-2.3 [facility] Comment on above: Order Comment: Speci men Type: BLOOD SPECIMENOrdering Facility: [facility] Address: [address] [place] [address] Performed By: #### 1 9123-9, 79972-5 ####[facility] LABORATORYCLIA [id number] [address] NURSING PROGon 06-26-2021 NURSING PROG Normal [facility] NURSING PROG Normal [facility] Basic metabolic 2000 panelon 06-25-2021 Anion gap [Moles/Vol] 8 mmol/L Low 9-18 [facility] Comment on above: Order Comment: Speci men Type: BLOOD SPECIMENOrdering Facility: [facility] Address: [address] [place] [address] Performed By: #### 2 4321-2, 58887-9 ####[facility] LABORATORYCLIA [id number] [address] STATES [place] Calcium [Mass/Vol] 8.8 mg/dL Normal 8.5-10.2 [facility] Comment on above: Order Comment: Speci men Type: BLOOD SPECIMENOrdering Facility: [facility] Address: [address] [address] Performed By: #### 2 4320-2, ####[facility] LABORATORYCLIA [id number] [address] [place] Chloride [Moles/Vol] 105 mmol/L Normal 97-105 [facility] Comment on above: Order Comment: Speci men Type: BLOOD SPECIMENOrdering Facility: [facility] Address: [address] [place] [address] Performed By: #### 2 4322, ####[facility]ORATORYCLIA [id number] [place] [address] [place] CO2 [Moles/Vol] 27 mmol/L Normal 22-30 [facility] Comment on above: Order Comment: Speci men Type: BLOOD SPECIMENOrdering Facility: [facility] Address: [address] [place] [address] Performed By: #### 2 2, ####[facility]ORATORYCLIA [id number] [place] [address] [place] Creatinine [Mass/Vol] 0.59 mg/dL Low 0.73-1.22 [facility] Comment on above: Order Comment: Speci men Type: BLOOD SPECIMENOrdering Facility: [facility] Address: [address] [place] [address] Performed By: #### 2 4320-06, ####[facility]ORATORYCLIA [id number] [place] [address] [place] GFR/1.73 sq M.predicted MDRD (S/P/Bld) [Vol rate/Area] mL/min/{1.73_m2} Normal [facility] Comment on above: Order Comment: Speci men Type: BLOOD SPECIMENOrdering Facility: [facility] Address: [address] [place] [address] Result Comment: >60e GFR (Estimated GFR) Units [...] actual GFR. Performed By: #### 2 4320-06, ####[facility]ORATORYCLIA [id number] [place] [address] [place] Glucose [Mass/Vol] 132 mg/dL High 74-99 [facility] Comment on above: Order Comment: Shira feldman Type: BLOOD SPECIMENOrdering Facility: [facility] Address: [address] [place], [place] [phone] Result Comment: The [place] Diabetes Association (ADA) provides guidance for cutoff [...] Standards of Medical Care in Diabetes 2016, [place] [employer]. Diabetes Care. 2016.39(Suppl 1). Performed By: #### 2 4320-06, ####[facility]ORATORYCLIA [id number] [place] [address] [place] Potassium [Moles/Vol] 3.9 mmol/L Normal 3.7-5.1 [facility] Comment on above: Order Comment: Shira feldman Type: BLOOD SPECIMENOrdering Facility: [facility] Address: [address] [place] [id number] Performed By: #### 2 4320-06, ####[facility]ORATORYCLIA [id number] [address] [place] Sodium [Moles/Vol] 140 mmol/L Normal 136-144 [facility] Comment on above: Order Comment: Speci men Type: BLOOD SPECIMENOrdering Facility: [facility] Address: [address] [place] [address] Performed By: #### 2 4321-2, 87152-7 ####[facility] LABORATORYCLIA [id number] [address] [place] Urea nitrogen [Mass/Vol] 24 mg/dL Normal 9-24 [facility] Comment on above: Order Comment: Speci men Type: BLOOD SPECIMENOrdering Facility: [facility] Address: [address] [place] [address] Performed By: #### 2 4321-2, 01260-2 ####[facility] LABORATORYCLIA [id number] [address] STATES OF [facility] CASE MANAGEMon 06-25-2021 CASE MANAGEM Normal [facility] CBC panel Auto (Bld)on 06-25 Erythrocyte distribution width (RBC) [Ratio] 15.9 % High 11.5-15.0 [facility] Comment on above: Order Comment: Speci men Type: BLOOD SPECIMENOrdering Facility: [facility] Address: [address] [place] [address] Performed By: #### 5 8410-2 ####[facility] LABORATORYCLIA [id number] [address] Hematocrit (Bld) [Volume fraction] 31.0 % Low 39.0-51.0 [facility] Comment on above: Order Comment: Speci men Type: BLOOD SPECIMENOrdering Facility: [facility] Address: [address] [place] [address] Performed By: #### 5 8410-2 ####[facility] LABORATORYCLIA [id number] [address] STATES OF [facility] Hemoglobin (Bld) [Mass/Vol] 9.4 g/dL Low 13.0-17.0 [facility] Comment on above: Order Comment: Speci men Type: BLOOD SPECIMENOrdering Facility: [facility] Address: [address] [place] [address] Performed By: #### 5 8410-2 ####[facility] LABORATORYCLIA [id number] [address] STATES [facility] MCH (RBC) [Entitic mass] 28.1 pg Normal 26.0-34.0 [facility] Comment on above: Order Comment: Speci men Type: BLOOD SPECIMENOrdering Facility: [facility] Address: [address] [place] [address] Performed By: #### 5 8410-2 ####[facility]ORATORYCLIA [id number] [address] STATES [facility] MCHC (RBC) [Mass/Vol] 30.3 g/dL Low 30.5-36.0 [facility] Comment on above: Order Comment: Speci men Type: BLOOD SPECIMENOrdering Facility: [facility] Address: [address] [place] [address] Performed By: #### 5 8410-2 ####[facility]ORATORYCLIA [id number] [address] MCV (RBC) [Entitic vol] 92.5 fL Normal 80.0-100.0 [facility] Comment on above: Order Comment: Speci men Type: BLOOD SPECIMENOrdering Facility: [facility] Address: [address] [place] [address] Performed By: #### 5 8410-2 ####[facility]ORATORYCLIA [id number] [address] Nucleated RBC (Bld) [#/Vol] 10*3/uL Normal <0.01 [facility] Comment on above: Order Comment: Speci men Type: BLOOD SPECIMENOrdering Facility: [facility] Address: [address] [place] [address] Performed By: #### 5 8410-2 ####[facility] LABORATORYCLIA [id number] [address] STATES [facility] Platelet mean volume (Bld) [Entitic vol] 10.5 fL Normal 9.0-12.7 [facility] Comment on above: Order Comment: Speci men Type: BLOOD SPECIMENOrdering Facility: [facility] Address: [address] [place] [address] Performed By: #### 5 8410-2 ####[facility]ORATORYCLIA [id number] [address] [place] Platelets (Bld) [#/Vol] 311 10*3/uL Normal 150-400 [facility] Comment on above: Order Comment: Speci men Type: BLOOD SPECIMENOrdering Facility: [facility] Address: [address] [place] [address] Performed By: #### 5 8410-2 ####[facility]ORATORYCLIA [id number] [address] [place] RBC (Bld) [#/Vol] 3.35 10*6/uL Low 4.20-6.00 [facility] Comment on above: Order Comment: Speci men Type: BLOOD SPECIMENOrdering Facility: [facility] Address: [address] [place] [address] Performed By: #### 5 8410-2 ####[facility] LABORATORYCLIA [id number] [address] [place] WBC (Bld) [#/Vol] 9.57 10*3/uL Normal 3.70-11.00 [facility] Comment on above: Order Comment: Speci men Type: BLOOD SPECIMENOrdering Facility: [facility] Address: [address] [place] [address] Performed By: #### 5 8410-2 ####[facility] LABORATORYCLIA [id number] [address] OF [place] Magnesium SerPl-ncon 06-25 Magnesium [Mass/Vol] 2.4 mg/dL High 1.7-2.3 [facility] Comment on above: Order Comment: Speci men Type: BLOOD SPECIMENOrdering Facility: [facility] Address: [address] [place] [address] Performed By: #### 2 4321-2, 49107-2 ####[facility]ORATORYCLIA [id number] [place] [address] [place] Basic metabolic 2000 panelon 06-24-2021 Anion gap [Moles/Vol] 9 mmol/L Normal 9-18 [facility] Comment on above: Order Comment: Speci men Type: BLOOD SPECIMENOrdering Facility: [facility] Address: [address] [place] [address] Performed By: #### 1 9123-9, 70809-0 ####[facility]ORATORYCLIA [id number] [place] [address] [place] Calcium [Mass/Vol] 8.6 mg/dL Normal 8.5-10.2 [facility] Comment on above: Order Comment: Speci men Type: BLOOD SPECIMENOrdering Facility: [facility] Address: [address] [place] [address] Performed By: #### 1 9123-9, 07646-7 ####[facility] LABORATORYCLIA [id number] [address] [place] Chloride [Moles/Vol] 103 mmol/L Normal 97-105 [facility] Comment on above: Order Comment: Speci men Type: BLOOD SPECIMENOrdering Facility: [facility] Address: [address] [place] [address] Performed By: #### 1 9123-9, 99176-0 ####[facility] LABORATORYCLIA [id number] [place] [address] [place] CO2 [Moles/Vol] 26 mmol/L Normal 22-30 [facility] Comment on above: Order Comment: Speci men Type: BLOOD SPECIMENOrdering Facility: [facility] Address: [address] [place] [address] Performed By: #### 1 9123-9, 78282-3 ####[facility] LABORATORYCLIA [id number] [address] [id number] [place] Creatinine [Mass/Vol] 0.60 mg/dL Low 0.73-1.22 [facility] Comment on above: Order Comment: Shira efldman Type: BLOOD SPECIMENOrdering Facility: [facility] Address: [address] Performed By: #### 1 9123-9, 45022-4 ####[facility]ORATORYCLIA [id number] [place] [address] [place] GFR/1.73 sq M.predicted MDRD (S/P/Bld) [Vol rate/Area] mL/min/{1.73_m2} Normal [facility] Comment on above: Order Comment: [facility] Type: BLOOD SPECIMENOrdering Facility: [facility] Address: [address] [place] [address] Result Comment: >60e GFR (Estimated GFR) Units [...] actual GFR. Performed By: #### 1 9123-9, 58906-1 ####[facility] LABORATORYCLIA [id number] [address] [place] [id number] [place] Glucose [Mass/Vol] 126 mg/dL High 74-99 [facility] Comment on above: Order Comment: Shira feldman Type: BLOOD SPECIMENOrdering Facility: [facility] Address: [address] [place] [address] Result Comment: The [place] Diabetes Association (ADA) provides guidance for cutoff [...] Standards of Medical Care in Diabetes 2016, [place] [employer]. Diabetes Care. 2016.39(Suppl 1). Performed By: #### 1 9123-9, 05390-4 ####[facility] LABORATORYCLIA [id number] [place] [address] [place] Potassium [Moles/Vol] 3.9 mmol/L Normal 3.7-5.1 [facility] Comment on above: Order Comment: Speci men Type: BLOOD SPECIMENOrdering Facility: [facility] Address: [address] [place] [address] Performed By: #### 1 91239, 06938-3 ####[facility] LABORATORYCLIA [id number] [address] STATES OF [facility] Sodium [Moles/Vol] 138 mmol/L Normal 136-144 [facility] Comment on above: Order Comment: Speci men Type: BLOOD SPECIMENOrdering Facility: [facility] Address: [address] [address] Performed By: #### 1 91239, 78036-2 ####[facility] LABORATORYCLIA [id number] [place] [address] [place] Urea nitrogen [Mass/Vol] 24 mg/dL Normal 9-24 [facility] Comment on above: Order Comment: Speci men Type: BLOOD SPECIMENOrdering Facility: [facility] Address: [address] [address] Performed By: #### 1 91239, 45273-0 ####[facility] LABORATORYCLIA [id number] [address] [place] CASE MANAGEMon 06-24-2021 CASE MANAGEM Normal [facility] CASE MANAGEM Normal [facility] CASE MANAGEM Normal [facility] CBC panel Auto (Bld)on 06-24 Erythrocyte distribution width (RBC) [Ratio] 16.1 % High 11.5-15.0 [facility] Comment on above: Order Comment: Speci men Type: BLOOD SPECIMENOrdering Facility: [facility] Address: [address] [place] [address] Performed By: #### 5 8410-2 ####[facility] LABORATORYCLIA [id number] [address] Hematocrit (Bld) [Volume fraction] 31.7 % Low 39.0-51.0 [facility] Comment on above: Order Comment: Speci men Type: BLOOD SPECIMENOrdering Facility: [facility] Address: [address] [place] [address] Performed By: #### 5 8410-2 ####[facility] LABORATORYCLIA [id number] [address] STATES OF [facility] Hemoglobin (Bld) [Mass/Vol] 9.7 g/dL Low 13.0-17.0 [facility] Comment on above: Order Comment: Speci men Type: BLOOD SPECIMENOrdering Facility: [facility] Address: [address] [place] [address] Performed By: #### 5 8410-2 ####[facility] LABORATORYCLIA [id number] [address] [place] MCH (RBC) [Entitic mass] 28.0 pg Normal 26.0-34.0 [facility] Comment on above: Order Comment: Speci men Type: BLOOD SPECIMENOrdering Facility: [facility] Address: [address] [place] [address] Performed By: #### 5 8410-2 ####[facility] LABORATORYCLIA [id number] [address] [place] MCHC (RBC) [Mass/Vol] 30.6 g/dL Normal 30.5-36.0 [facility] Comment on above: Order Comment: Speci men Type: BLOOD SPECIMENOrdering Facility: [facility] Address: [address] [place] [address] Performed By: #### 5 8410-2 ####[facility] LABORATORYCLIA [id number] [address] [place] [facility] MCV (RBC) [Entitic vol] 91.4 fL Normal 80.0-100.0 [facility] Comment on above: Order Comment: Speci men Type: BLOOD SPECIMENOrdering Facility: [facility] Address: [address] [place], [place] [address] Performed By: #### 5 8410-2 ####[facility] LABORATORYCLIA [id number] [address] [place] Nucleated RBC (Bld) [#/Vol] 10*3/uL Normal <0.01 [facility] Comment on above: Order Comment: Speci men Type: BLOOD SPECIMENOrdering Facility: [facility] Address: [address] [place] [address] Performed By: #### 5 8410-2 ####[facility] LABORATORYCLIA [id number] [address] [place] Platelet mean volume (Bld) [Entitic vol] 11.0 fL Normal 9.0-12.7 [facility] Comment on above: Order Comment: Speci men Type: BLOOD SPECIMENOrdering Facility: [facility] Address: [address] [place], [place] [id number] Performed By: #### 5 8410-2 ####[facility] LABORATORYCLIA [id number] [address] [place] Platelets (Bld) [#/Vol] 358 10*3/uL Normal 150-400 [facility] Comment on above: Order Comment: Speci men Type: BLOOD SPECIMENOrdering Facility: [facility] Address: [address] [place], [place] [address] Performed By: #### 5 8410-2 ####[facility] LABORATORYCLIA [id number] [address] [place] RBC (Bld) [#/Vol] 3.47 10*6/uL Low 4.20-6.00 [facility] Comment on above: Order Comment: Speci men Type: BLOOD SPECIMENOrdering Facility: [facility] Address: [address] [place] [address] Performed By: #### 5 8410-2 ####[facility] LABORATORYCLIA [id number] [address] OF [facility] WBC (Bld) [#/Vol] 10.07 10*3/uL Normal 3.70-11.00 [facility] Center Comment on above: Order Comment: Speci men Type: BLOOD SPECIMENOrdering Facility: [facility] Address: [address] [place] [address] Performed By: #### 5 8410-2 ####[facility] LABORATORYCLIA [id number] [address] [place] Magnesium SerPl-mCncon 06-24 Magnesium [Mass/Vol] 2.3 mg/dL Normal 1.7-2.3 [facility] Comment on above: Order Comment: Speci men Type: BLOOD SPECIMENOrdering Facility: [facility] Address: [address] [place] [address] Performed By: #### 1 9123-9, 06891-9 ####[facility] LABORATORYCLIA [id number] [place] [address] [place] ALLIED HEALTHon 06-23-2021 ALLIED HEALTH Normal [facility] Basic metabolic 2000 panelon 06-23-2021 Anion gap [Moles/Vol] 9 mmol/L Normal -18 [facility] Comment on above: Order Comment: Speci men Type: BLOOD SPECIMENOrdering Facility: [facility] Address: [address] [place] [address] Performed By: #### 1 9123-9, 12822-8 ####[facility] LABORATORYCLIA [id number] [place] [address] [place] Calcium [Mass/Vol] 8.4 mg/dL Low 8.5-10.2 [facility] Comment on above: Order Comment: Speci men Type: BLOOD SPECIMENOrdering Facility: [facility] Address: [address] [place] [address] Performed By: #### 1 9123-9, 33409-1 ####[facility] LABORATORYCLIA [id number] [address] STATES [place] Chloride [Moles/Vol] 104 mmol/L Normal 97-105 [facility] Comment on above: Order Comment: Speci men Type: BLOOD SPECIMENOrdering Facility: [facility] Address: [address] [place] [address] Performed By: #### 1 9123-9, 80362-6 ####[facility] LABORATORYCLIA [id number] [address] STATES OF [facility] CO2 [Moles/Vol] 26 mmol/L Normal 22-30 [facility] Comment on above: Order Comment: Speci men Type: BLOOD SPECIMENOrdering Facility: [facility] Address: [address] [place] [address] Performed By: #### 1 9123-9, 08495-5 ####[facility]ORATORYCLIA [id number] [address] [place] Creatinine [Mass/Vol] 0.62 mg/dL Low 0.73-1.22 [facility] Comment on above: Order Comment: Speci men Type: BLOOD SPECIMENOrdering Facility: [facility] Address: [address] [place] [address] Performed By: #### 1 9123-9, 89756-7 ####[facility] LABORATORYCLIA [id number] [place] [address] [place] GFR/1.73 sq M.predicted MDRD (S/P/Bld) [Vol rate/Area] mL/min/{1.73_m2} Normal [facility] Comment on above: Order Comment: Shira feldman Type: BLOOD SPECIMENOrdering Facility: [facility] Address: [address] [place], [place] [address] Result Comment: >60e GFR (Estimated GFR) Units [...] actual GFR. Performed By: #### 1 9123-9, 63521-0 ####[facility] LABORATORYCLIA [id number] [place] [address] [place] Glucose [Mass/Vol] 111 mg/dL High 74-99 [facility] Comment on above: Order Comment: Shira feldman Type: BLOOD SPECIMENOrdering Facility: [facility] Address: [address] [place], [place] [address] Result Comment: The [place] Diabetes [employer] (ADA) provides guidance for cutoff [...] Standards of Medical Care in Diabetes 2016, [place] [employer]. Diabetes Care. 2016.39(Suppl 1). Performed By: #### 1 9123-9, 42183-0 ####[facility] LABORATORYCLIA [id number] [place] [address] [place] Potassium [Moles/Vol] 4.1 mmol/L Normal 3.7-5.1 [facility] Comment on above: Order Comment: Speci men Type: BLOOD SPECIMENOrdering Facility: [facility] Address: [address] [place] [address] Performed By: #### 1 9123-9, 17238-4 ####[facility] LABORATORYCLIA [id number] [address] STATES [place] Sodium [Moles/Vol] 139 mmol/L Normal 136-144 [facility] Comment on above: Order Comment: Speci men Type: BLOOD SPECIMENOrdering Facility: [facility] Address: [address] [place] [address] Performed By: #### 1 9123-9, 26735-0 ####[facility] LABORATORYCLIA [id number] [address] STATES [facility] Urea nitrogen [Mass/Vol] 26 mg/dL High 9-24 [facility] Comment on above: Order Comment: Speci men Type: BLOOD SPECIMENOrdering Facility: [facility] Address: [address] [place] [address] Performed By: #### 1 9123-9, 11909-8 ####[facility] LABORATORYCLIA [id number] [address] [place] CASE MANAGEMon 06-23-2021 CASE MANAGEM Normal [facility] CBC panel Auto (Bld)on 06-23 Erythrocyte distribution width (RBC) [Ratio] 16.0 % High 11.5-15.0 [facility] Comment on above: Order Comment: Speci men Type: BLOOD SPECIMENOrdering Facility: [facility] Address: [address] [place] [address] Performed By: #### 5 8410-2 ####[facility] LABORATORYCLIA [id number] [address] STATES [facility] Hematocrit (Bld) [Volume fraction] 31.1 % Low 39.0-51.0 [facility] Comment on above: Order Comment: Speci men Type: BLOOD SPECIMENOrdering Facility: [facility] Address: [address] [place] [address] Performed By: #### 5 8410-2 ####[facility] LABORATORYCLIA [id number] [address] OF [facility] Hemoglobin (Bld) [Mass/Vol] 9.5 g/dL Low 13.0-17.0 [facility] Comment on above: Order Comment: Speci men Type: BLOOD SPECIMENOrdering Facility: [facility] Address: [address] [place] [address] Performed By: #### 5 8410-2 ####[facility] LABORATORYCLIA [id number] [address] MCH (RBC) [Entitic mass] 28.1 pg Normal 26.0-34.0 [facility] Comment on above: Order Comment: Speci men Type: BLOOD SPECIMENOrdering Facility: [facility] Address: [address] [place] [address] Performed By: #### 5 8410-2 ####[facility] LABORATORYCLIA [id number] [address] [place] [facility] MCHC (RBC) [Mass/Vol] 30.5 g/dL Normal 30.5-36.0 [facility] Comment on above: Order Comment: Speci men Type: BLOOD SPECIMENOrdering Facility: [facility] Address: [address] [place] [address] Performed By: #### 5 8410-2 ####[facility] LABORATORYCLIA [id number] [address] MCV (RBC) [Entitic vol] 92.0 fL Normal 80.0-100.0 [facility] Comment on above: Order Comment: Speci men Type: BLOOD SPECIMENOrdering Facility: [facility] Address: [address] [place] [address] Performed By: #### 5 8410-2 ####[facility] LABORATORYCLIA [id number] [address] Nucleated RBC (Bld) [#/Vol] 10*3/uL Normal <0.01 [facility] Comment on above: Order Comment: Speci men Type: BLOOD SPECIMENOrdering Facility: [facility] Address: [facility] [place] [address] Performed By: #### 5 8410-2 ####[facility] LABORATORYCLIA [id number] [place] [address] [place] Platelet mean volume (Bld) [Entitic vol] 11.0 fL Normal 9.0-12.7 [facility] Comment on above: Order Comment: Speci men Type: BLOOD SPECIMENOrdering Facility: [facility] Address: [address] [place] [address] Performed By: #### 5 8410-2 ####[facility] LABORATORYCLIA [id number] [address] STATES [place] Platelets (Bld) [#/Vol] 361 10*3/uL Normal 150-400 [facility] Comment on above: Order Comment: Speci men Type: BLOOD SPECIMENOrdering Facility: [facility] Address: [address] [place] [address] Performed By: #### 5 8410-2 ####[facility] LABORATORYCLIA [id number] [place] [address] [place] RBC (Bld) [#/Vol] 3.38 10*6/uL Low 4.20-6.00 [facility] Comment on above: Order Comment: Speci men Type: BLOOD SPECIMENOrdering Facility: [facility] Address: [address] Performed By: #### 5 8410-2 ####[facility] LABORATORYCLIA [id number] [address] [place] WBC (Bld) [#/Vol] 9.02 10*3/uL Normal 3.70-11.00 [facility] Comment on above: Order Comment: Speci men Type: BLOOD SPECIMENOrdering Facility: [facility] Address: [address] [place] [address] Performed By: #### 5 8410-2 ####[facility] LABORATORYCLIA [id number] [address] CONSULT PROGon 06-23-2021 CONSULT PROG Normal [facility] CONSULT PROG Normal [facility] Magnesium SerPl-mCncon 06-23 Magnesium [Mass/Vol] 2.4 mg/dL High 1.7-2.3 [facility] Comment on above: Order Comment: Speci men Type: BLOOD SPECIMENOrdering Facility: [facility] Address: [address] [place] [address] Performed By: #### 1 9123-9, 73957-7 ####[facility]ORATORYCLIA [id number] [address] THERAPY NTon 06-23-2021 THERAPY NT Normal [facility] Vancomycin random [Mass/Vol] on 06-23-2021 Vancomycin [Mass/Vol] 22.8 ug/mL High 10.0-20.0 [facility] Comment on above: Order Comment: Speci men Type: BLOOD SPECIMENOrdering Facility: [facility] Address: [address] [place] [address] Result Comment: Refe rence ranges and high/low indicator flags are provided as general guidelines only. The treating physician must determine appropriate target levels/dosing based on the specific clinical situation. Performed By: #### 4 091-5 ####[facility] LABORATORYCLIA [id number] [address] OF [facility] XR MOD BARIUM SWALLOW W SPEE Lore 06-23-2021 XR MOD BARIUM SWALLOW W SPEECH Normal [facility] Basic metabolic 2000 panelon 06-22-2021 Anion gap [Moles/Vol] 6 mmol/L Low 9-18 [facility] Comment on above: Order Comment: Speci men Type: BLOOD SPECIMENOrdering Facility: [facility] Address: [address] [place] [address] Performed By: #### 2 4321-2, 39923-0 ####[facility] LABORATORYCLIA [id number] [place] [address] [place] Calcium [Mass/Vol] 8.5 mg/dL Normal 8.5-10.2 [facility] Comment on above: Order Comment: Speci men Type: BLOOD SPECIMENOrdering Facility: [facility] Address: [address] [place] [address] Performed By: #### 2 4321-2, ####[facility] LABORATORYCLIA [id number] [place] [address] [place] Chloride [Moles/Vol] 105 mmol/L Normal 97-105 [facility] Comment on above: Order Comment: Speci men Type: BLOOD SPECIMENOrdering Facility: [facility] Address: [address] [place] [address] Performed By: #### 2 4322, ####[facility] LABORATORYCLIA [id number] [address] [place] CO2 [Moles/Vol] 26 mmol/L Normal 22-30 [facility] Comment on above: Order Comment: Speci men Type: BLOOD SPECIMENOrdering Facility: [facility] Address: [address] [place] [address] Performed By: #### 2 2, ####[facility] LABORATORYCLIA [id number] [place] [address] [place] Creatinine [Mass/Vol] 0.56 mg/dL Low 0.73-1.22 [facility] Comment on above: Order Comment: Speci men Type: BLOOD SPECIMENOrdering Facility: [facility] Address: [address] [place] [address] Performed By: #### 2 4322, ####[facility] LABORATORYCLIA [id number] [place] [address] [place] GFR/1.73 sq M.predicted MDRD (S/P/Bld) [Vol rate/Area] mL/min/{1.73_m2} Normal [facility] Comment on above: Order Comment: Shira feldman Type: BLOOD SPECIMENOrdering Facility: [facility] Address: [address] [place], [place] [phone] Result Comment: >60e GFR (Estimated GFR) Units [...] actual GFR. Performed By: #### 2 4321-2, 70449-0 ####[facility] LABORATORYCLIA [id number] [place] [address] [place] Glucose [Mass/Vol] 120 mg/dL High 74-99 [facility] Comment on above: Order Comment: Shira feldman Type: BLOOD SPECIMENOrdering Facility: [facility] Address: [address] [place] [phone] Result Comment: The [place] Diabetes [employer] (ADA) provides guidance for cutoff [...] Standards of Medical Care in Diabetes 2016, [place] [employer]. Diabetes Care. 2016.39(Suppl 1). Performed By: #### 2 4321-2, 29431-8 ####[facility] LABORATORYCLIA [id number] [place] [address] [place] Potassium [Moles/Vol] 4.0 mmol/L Normal 3.7-5.1 [facility] Comment on above: Order Comment: Speci men Type: BLOOD SPECIMENOrdering Facility: [facility] Address: [address] [place] [address] Performed By: #### 2 4321-2, ####[facility] LABORATORYCLIA [id number] [address] STATES OF [facility] Sodium [Moles/Vol] 137 mmol/L Normal 136-144 [facility] Comment on above: Order Comment: Speci men Type: BLOOD SPECIMENOrdering Facility: [facility] Address: [address] [place] [address] Performed By: #### 2 4321-2, ####[facility] LABORATORYCLIA [id number] [address] [place] [facility] Urea nitrogen [Mass/Vol] 25 mg/dL High 9-24 [facility] Comment on above: Order Comment: Speci men Type: BLOOD SPECIMENOrdering Facility: [facility] Address: [address] [place] [address] Performed By: #### 2 432-2, ####[facility] LABORATORYCLIA [id number] [address] STATES OF [facility] CASE MANAGEMon 06-22-2021 CASE MANAGEM Normal [facility] CBC panel Auto (Bld)on 06-22 Erythrocyte distribution width (RBC) [Ratio] 16.0 % High 11.5-15.0 [facility] Comment on above: Order Comment: Speci men Type: BLOOD SPECIMENOrdering Facility: [facility] Address: [address] [place] [address] Performed By: #### 5 8410-2 ####[facility] LABORATORYCLIA [id number] [address] [place] [facility] Hematocrit (Bld) [Volume fraction] 30.5 % Low 39.0-51.0 [facility] Comment on above: Order Comment: Speci men Type: BLOOD SPECIMENOrdering Facility: [facility] Address: [address] [place] [address] Performed By: #### 5 8410-2 ####[facility] LABORATORYCLIA [id number] [address] Hemoglobin (Bld) [Mass/Vol] 9.3 g/dL Low 13.0-17.0 [facility] Comment on above: Order Comment: Speci men Type: BLOOD SPECIMENOrdering Facility: [facility] Address: [address] [place] [address] Performed By: #### 5 8410-2 ####[facility] LABORATORYCLIA [id number] [address] [place] [facility] MCH (RBC) [Entitic mass] 28.4 pg Normal 26.0-34.0 [facility] Comment on above: Order Comment: Speci men Type: BLOOD SPECIMENOrdering Facility: [facility] Address: [address] [place] [address] Performed By: #### 5 8410-2 ####[facility] LABORATORYCLIA [id number] [address] MCHC (RBC) [Mass/Vol] 30.5 g/dL Normal 30.5-36.0 [facility] Comment on above: Order Comment: Speci men Type: BLOOD SPECIMENOrdering Facility: [facility] Address: [address] [place] [address] Performed By: #### 5 8410-2 ####[facility] LABORATORYCLIA [id number] [address] MCV (RBC) [Entitic vol] 93.3 fL Normal 80.0-100.0 [facility] Comment on above: Order Comment: Speci men Type: BLOOD SPECIMENOrdering Facility: [facility] Address: [address] [place] [address] Performed By: #### 5 8410-2 ####[facility] LABORATORYCLIA [id number] [address] Nucleated RBC (Bld) [#/Vol] 10*3/uL Normal <0.01 [facility] Comment on above: Order Comment: Speci men Type: BLOOD SPECIMENOrdering Facility: [facility] Address: [address] [place] [address] Performed By: #### 5 8410-2 ####[facility] LABORATORYCLIA [id number] [address] [place] Platelet mean volume (Bld) [Entitic vol] 11.5 fL Normal 9.0-12.7 [facility] Comment on above: Order Comment: Speci men Type: BLOOD SPECIMENOrdering Facility: [facility] Address: [address] [place] [address] Performed By: #### 5 8410-2 ####[facility] LABORATORYCLIA [id number] [address] [place] Platelets (Bld) [#/Vol] 346 10*3/uL Normal 150-400 [facility] Comment on above: Order Comment: Speci men Type: BLOOD SPECIMENOrdering Facility: [facility] Address: [address] [place] [address] Performed By: #### 5 8410-2 ####[facility] LABORATORYCLIA [id number] [place] [address] [place] RBC (Bld) [#/Vol] 3.27 10*6/uL Low 4.20-6.00 [facility] Comment on above: Order Comment: Speci men Type: BLOOD SPECIMENOrdering Facility: [facility] Address: [address] Performed By: #### 5 8410-2 ####[facility] LABORATORYCLIA [id number] [address] [place] WBC (Bld) [#/Vol] 9.44 10*3/uL Normal 3.70-11.00 [facility] Comment on above: Order Comment: Speci men Type: BLOOD SPECIMENOrdering Facility: [facility] Address: [address] [place] [address] Performed By: #### 5 8410-2 ####[facility] LABORATORYCLIA [id number] [address] HEMOGLOBIN (HGB)on Hemoglobin (Bld) [Mass/Vol] 9.7 g/dL Low 13.0-17.0 [facility] Comment on above: Order Comment: Speci men Type: BLOOD SPECIMENOrdering Facility: [facility] Address: [address] [place] [address] Performed By: #### H GB ####[facility] LABORATORYCLIA [id number] [address] Magnesium SerPl-mCncon 06-22 Magnesium [Mass/Vol] 2.4 mg/dL High 1.7-2.3 [facility] Comment on above: Order Comment: Speci men Type: BLOOD SPECIMENOrdering Facility: [facility] Address: [address] [place] [address] Performed By: #### 2 4321-2, 21067-7 ####[facility] LABORATORYCLIA [id number] [address] THERAPY NTon 06-22-2021 THERAPY NT Normal [facility] THERAPY NT Normal [facility] aPTT PPPon 06-22-2021 aPTT Coag (PPP) [Time] 62.3 s High 23.0-32.4 [facility] Comment on above: Order Comment: Speci men Type: BLOOD SPECIMENOrdering Facility: [facility] Address: [address] [place] [address] Performed By: #### 1 4979-9 ####[facility] LABORATORYCLIA [id number] [address] [place] ALLIED HEALTHon 06-21-2021 ALLIED HEALTH Normal [facility] Basic metabolic 2000 panelon 06-21-2021 Anion gap [Moles/Vol] 8 mmol/L Low 9-18 [facility] Comment on above: Order Comment: Speci men Type: BLOOD SPECIMENOrdering Facility: [facility] Address: [address] [place] [address] Performed By: #### 2 4321-2, ####[facility] LABORATORYCLIA [id number] [place] [address] [place] Calcium [Mass/Vol] 8.2 mg/dL Low 8.5-10.2 [facility] Comment on above: Order Comment: Speci men Type: BLOOD SPECIMENOrdering Facility: [facility] Address: [address] [place] [address] Performed By: #### 2 4320-2, ####[facility] LABORATORYCLIA [id number] [place] [address] [place] Chloride [Moles/Vol] 108 mmol/L High 97-105 [facility] Comment on above: Order Comment: Speci men Type: BLOOD SPECIMENOrdering Facility: [facility] Address: [address] [place] [address] Performed By: #### 2 2, ####[facility] LABORATORYCLIA [id number] [place] [address] [place] CO2 [Moles/Vol] 24 mmol/L Normal 22-30 [facility] Comment on above: Order Comment: Speci men Type: BLOOD SPECIMENOrdering Facility: [facility] Address: [address] [place] [address] Performed By: #### 2 2, ####[facility]ORATORYCLIA [id number] [place] [address] [place] Creatinine [Mass/Vol] 0.61 mg/dL Low 0.73-1.22 [facility] Comment on above: Order Comment: Speci men Type: BLOOD SPECIMENOrdering Facility: [facility] Address: [address] [place] [address] Performed By: #### 2 4320-2, ####[facility]ORATORYCLIA [id number] [place] [address] [place] GFR/1.73 sq M.predicted MDRD (S/P/Bld) [Vol rate/Area] mL/min/{1.73_m2} Normal [facility] Comment on above: Order Comment: Shira fedlman Type: BLOOD SPECIMENOrdering Facility: [facility] Address: [address] [place], [place] [phone] Result Comment: >60e GFR (Estimated GFR) Units [...] actual GFR. Performed By: #### 2 4321-2, 37051-1 ####[facility] LABORATORYCLIA [id number] [place] [address] [place] Glucose [Mass/Vol] 211 mg/dL High 74-99 [facility] Comment on above: Order Comment: Shira feldman Type: BLOOD SPECIMENOrdering Facility: [facility] Address: [address] [place] [address] Result Comment: The [place] [employer] (ADA) provides guidance for cutoff [...] Standards of Medical Care in Diabetes 2016, [place] [employer]. Diabetes Care. 2016.39(Suppl 1). Performed By: #### 2 4321-2, 25746-1 ####[facility] LABORATORYCLIA [id number] [address] [place] Potassium [Moles/Vol] 4.3 mmol/L Normal 3.7-5.1 [facility] Comment on above: Order Comment: Speci men Type: BLOOD SPECIMENOrdering Facility: [facility] Address: [address] [place] [address] Performed By: #### 2 4321-2, ####[facility] LABORATORYCLIA [id number] [address] [place] Sodium [Moles/Vol] 140 mmol/L Normal 136-144 [facility] Comment on above: Order Comment: Speci men Type: BLOOD SPECIMENOrdering Facility: [facility] Address: [address] [place] [address] Performed By: #### 2 4321-2, ####[facility] LABORATORYCLIA [id number] [address] STATES [facility] Urea nitrogen [Mass/Vol] 26 mg/dL High 9-24 [facility] Comment on above: Order Comment: Speci men Type: BLOOD SPECIMENOrdering Facility: [facility] Address: [address] [place] [address] Performed By: #### 2 4321-2, ####[facility] LABORATORYCLIA [id number] [address] STATES OF [facility] CBC panel Auto (Bld)on 06-21 Erythrocyte distribution width (RBC) [Ratio] 16.1 % High 11.5-15.0 [facility] Comment on above: Order Comment: Speci men Type: BLOOD SPECIMENOrdering Facility: [facility] Address: [address] [place] [address] Performed By: #### 5 8410-2 ####[facility] LABORATORYCLIA [id number] [address] [place] Hematocrit (Bld) [Volume fraction] 29.7 % Low 39.0-51.0 [facility] Comment on above: Order Comment: Speci men Type: BLOOD SPECIMENOrdering Facility: [facility] Address: [address] [place] [address] Performed By: #### 5 8410-2 ####[facility] LABORATORYCLIA [id number] [address] OF [facility] Hemoglobin (Bld) [Mass/Vol] 9.2 g/dL Low 13.0-17.0 [facility] Comment on above: Order Comment: Speci men Type: BLOOD SPECIMENOrdering Facility: [facility] Address: [address] [place] [address] Performed By: #### 5 8410-2 ####[facility] LABORATORYCLIA [id number] [address] STATES OF [facility] MCH (RBC) [Entitic mass] 28.8 pg Normal 26.0-34.0 [facility] Comment on above: Order Comment: Speci men Type: BLOOD SPECIMENOrdering Facility: [facility] Address: [address] [place] [address] Performed By: #### 5 8410-2 ####[facility] LABORATORYCLIA [id number] [address] MCHC (RBC) [Mass/Vol] 31.0 g/dL Normal 30.5-36.0 [facility] Comment on above: Order Comment: Speci men Type: BLOOD SPECIMENOrdering Facility: [facility] Address: [address] [place] [address] Performed By: #### 5 8410-2 ####[facility] LABORATORYCLIA [id number] [address] [place] MCV (RBC) [Entitic vol] 93.1 fL Normal 80.0-100.0 [facility] Comment on above: Order Comment: Speci men Type: BLOOD SPECIMENOrdering Facility: [facility] Address: [address] [place] [address] Performed By: #### 5 8410-2 ####[facility] LABORATORYCLIA [id number] [place] [address] [place] Nucleated RBC (Bld) [#/Vol] 10*3/uL Normal <0.01 [facility] Comment on above: Order Comment: Speci men Type: BLOOD SPECIMENOrdering Facility: [facility] Address: [address] [place] [address] Performed By: #### 5 8410-2 ####[facility] LABORATORYCLIA [id number] [place] [address] [place] Platelet mean volume (Bld) [Entitic vol] 11.6 fL Normal 9.0-12.7 [facility] Comment on above: Order Comment: Speci men Type: BLOOD SPECIMENOrdering Facility: [facility] Address: [address] [place] [address] Performed By: #### 5 8410-2 ####[facility] LABORATORYCLIA [id number] [address] [place] Platelets (Bld) [#/Vol] 347 10*3/uL Normal 150-400 [facility] Comment on above: Order Comment: Speci men Type: BLOOD SPECIMENOrdering Facility: [facility] Address: [address] [place] [address] Performed By: #### 5 8410-2 ####[facility] LABORATORYCLIA [id number] [place] [address] [place] RBC (Bld) [#/Vol] 3.19 10*6/uL Low 4.20-6.00 [facility] Comment on above: Order Comment: Speci men Type: BLOOD SPECIMENOrdering Facility: [facility] Address: [address] [place] [address] Performed By: #### 5 8410-2 ####[facility] LABORATORYCLIA [id number] [place] [address] [place] WBC (Bld) [#/Vol] 10.29 10*3/uL Normal 3.70-11.00 [facility] Comment on above: Order Comment: Speci men Type: BLOOD SPECIMENOrdering Facility: [facility] Address: [address] [place] [address] Performed By: #### 5 8410-2 ####[facility] LABORATORYCLIA [id number] [address] CONSULT PROGon 06-21-2021 CONSULT PROG Normal [facility] CONSULT PROG Normal [facility] Magnesium SerPl-mCncon 06-21 Magnesium [Mass/Vol] 2.5 mg/dL High 1.7-2.3 [facility] Comment on above: Order Comment: Speci men Type: BLOOD SPECIMENOrdering Facility: [facility] Address: [address] [place] [address] Performed By: #### 2 4321-2, 69655-0 ####[facility] LABORATORYCLIA [id number] [address] NUTRITIONon 06-21-2021 NUTRITION Normal [facility] XR CHEST 1V FRONTALon 2021 XR CHEST 1V FRONTAL Normal [facility] aPTT PPPon 06-21-2021 aPTT Coag (PPP) [Time] 68.5 s High 23.0-32.4 [facility] Comment on above: Order Comment: Speci men Type: BLOOD SPECIMENOrdering Facility: [facility] Address: [address] [place] [address] Performed By: #### 1 4979-9 ####[facility] LABORATORYCLIA [id number] [address] aPTT Coag (PPP) [Time] 57.8 s High 23.0-32.4 [facility] Comment on above: Order Comment: Speci men Type: BLOOD SPECIMENOrdering Facility: [facility] Address: [address] [place] [address] Performed By: #### 1 4979-9 ####[facility] LABORATORYCLIA [id number] [address] OF [place] Basic metabolic 2000 panelon 06-20-2021 Anion gap [Moles/Vol] 9 mmol/L Normal 9-18 [facility] Comment on above: Order Comment: Speci men Type: BLOOD SPECIMENOrdering Facility: [facility] Address: [address] [address] Performed By: #### 2 4321-2, ####[facility] LABORATORYCLIA [id number] [place] [address] [place] Calcium [Mass/Vol] 8.3 mg/dL Low 8.5-10.2 [facility] Comment on above: Order Comment: Speci men Type: BLOOD SPECIMENOrdering Facility: [facility] Address: [address] [place] [address] Performed By: #### 2 4320-2, ####[facility] LABORATORYCLIA [id number] [place] [address] [place] Chloride [Moles/Vol] 111 mmol/L High 97-105 [facility] Comment on above: Order Comment: Speci men Type: BLOOD SPECIMENOrdering Facility: [facility] Address: [address] [place] [address] Performed By: #### 2 4320-2, ####[facility] LABORATORYCLIA [id number] [place] [address] [place] CO2 [Moles/Vol] 24 mmol/L Normal 22-30 [facility] Comment on above: Order Comment: Speci men Type: BLOOD SPECIMENOrdering Facility: [facility] Address: [address] [address] Performed By: #### 2 4321-2, ####[facility]ORATORYCLIA [id number] [place] [address] [place] Creatinine [Mass/Vol] 0.64 mg/dL Low 0.73-1.22 [facility] Comment on above: Order Comment: Speci men Type: BLOOD SPECIMENOrdering Facility: [facility] Address: [address] [address] Performed By: #### 2 4321-2, 16214-4 ####[facility] LABORATORYCLIA [id number] [place] [address] [place] GFR/1.73 sq M.predicted MDRD (S/P/Bld) [Vol rate/Area] mL/min/{1.73_m2} Normal [facility] Comment on above: Order Comment: Shira feldman Type: BLOOD SPECIMENOrdering Facility: [facility] Address: [address] [address] Result Comment: >60e GFR (Estimated GFR) Units [...] actual GFR. Performed By: #### 2 4321-2, 12753-4 ####[facility] LABORATORYCLIA [id number] [place] [address] [place] Glucose [Mass/Vol] 114 mg/dL High 74-99 [facility] Comment on above: Order Comment: Shira feldman Type: BLOOD SPECIMENOrdering Facility: [facility] Address: [address] [address] Result Comment: The [place] [employer] (ADA) provides guidance for cutoff [...] Standards of Medical Care in Diabetes 2016, [place] [employer]. Diabetes Care. 2016.39(Suppl 1). Performed By: #### 2 432-2, 56355-4 ####[facility] LABORATORYCLIA [id number] [place] [address] [place] Potassium [Moles/Vol] 4.1 mmol/L Normal 3.7-5.1 [facility] Comment on above: Order Comment: Speci men Type: BLOOD SPECIMENOrdering Facility: [facility] Address: [address] [place] [address] Performed By: #### 2 432-2, ####[facility] LABORATORYCLIA [id number] [address] [place] Sodium [Moles/Vol] 144 mmol/L Normal 136-144 [facility] Comment on above: Order Comment: Speci men Type: BLOOD SPECIMENOrdering Facility: [facility] Address: [address] [place] [address] Performed By: #### 2 4320-2, ####[facility] LABORATORYCLIA [id number] [place] [address] [place] Urea nitrogen [Mass/Vol] 27 mg/dL High 9-24 [facility] Comment on above: Order Comment: Speci men Type: BLOOD SPECIMENOrdering Facility: [facility] Address: [address] [place] [address] Performed By: #### 2 2, ####[facility] LABORATORYCLIA [id number] [address] [place] CASE MANAGEMon 06-20-2021 CASE MANAGEM Normal [facility] CBC panel Auto (Bld)on 06-20 Erythrocyte distribution width (RBC) [Ratio] 15.9 % High 11.5-15.0 [facility] Comment on above: Order Comment: Speci men Type: BLOOD SPECIMENOrdering Facility: [facility] Address: [address] [place] [address] Performed By: #### 5 8410-2 ####[facility] LABORATORYCLIA [id number] [address] Hematocrit (Bld) [Volume fraction] 31.0 % Low 39.0-51.0 [facility] Comment on above: Order Comment: Speci men Type: BLOOD SPECIMENOrdering Facility: [facility] Address: [address] [place] [address] Performed By: #### 5 8410-2 ####[facility] LABORATORYCLIA [id number] [address] Hemoglobin (Bld) [Mass/Vol] 9.2 g/dL Low 13.0-17.0 [facility] Comment on above: Order Comment: Speci men Type: BLOOD SPECIMENOrdering Facility: [facility] Address: [address] [place] [address] Performed By: #### 5 8410-2 ####[facility] LABORATORYCLIA [id number] [address] MCH (RBC) [Entitic mass] 27.4 pg Normal 26.0-34.0 [facility] Comment on above: Order Comment: Speci men Type: BLOOD SPECIMENOrdering Facility: [facility] Address: [address] [place] [address] Performed By: #### 5 8410-2 ####[facility] LABORATORYCLIA [id number] [address] [place] MCHC (RBC) [Mass/Vol] 29.7 g/dL Low 30.5-36.0 [facility] Comment on above: Order Comment: Speci men Type: BLOOD SPECIMENOrdering Facility: [facility] Address: [address] [place] [address] Performed By: #### 5 8410-2 ####[facility] LABORATORYCLIA [id number] [address] OF [facility] MCV (RBC) [Entitic vol] 92.3 fL Normal 80.0-100.0 [facility] Comment on above: Order Comment: Speci men Type: BLOOD SPECIMENOrdering Facility: [facility] Address: [address] Performed By: #### 5 8410-2 ####[facility] LABORATORYCLIA [id number] [address] [place] Nucleated RBC (Bld) [#/Vol] 10*3/uL Normal <0.01 [facility] Comment on above: Order Comment: Speci men Type: BLOOD SPECIMENOrdering Facility: [facility] Address: [address] [place], [place] [address] Performed By: #### 5 8410-2 ####[facility] LABORATORYCLIA [id number] [place] [address] [place] Platelet mean volume (Bld) [Entitic vol] 11.5 fL Normal 9.0-12.7 [facility] Comment on above: Order Comment: Speci men Type: BLOOD SPECIMENOrdering Facility: [facility] Address: [address] [place] [address] Performed By: #### 5 8410-2 ####[facility] LABORATORYCLIA [id number] [address] [place] Platelets (Bld) [#/Vol] 343 10*3/uL Normal 150-400 [facility] Comment on above: Order Comment: Speci men Type: BLOOD SPECIMENOrdering Facility: [facility] Address: [address] Performed By: #### 5 8410-2 ####[facility] LABORATORYCLIA [id number] [address] [place] RBC (Bld) [#/Vol] 3.36 10*6/uL Low 4.20-6.00 [facility] Comment on above: Order Comment: Speci men Type: BLOOD SPECIMENOrdering Facility: [facility] Address: [address] [place] [address] Performed By: #### 5 8410-2 ####[facility] LABORATORYCLIA [id number] [address] [place] WBC (Bld) [#/Vol] 10.71 10*3/uL Normal 3.70-11.00 [facility] Comment on above: Order Comment: Speci men Type: BLOOD SPECIMENOrdering Facility: [facility] Address: [address] [place] [address] Performed By: #### 5 8410-2 ####[facility] LABORATORYCLIA [id number] [address] OF [facility] CONSULT PROGon 06-20-2021 CONSULT PROG Normal [facility] HEMOGLOBIN (HGB)on Hemoglobin (Bld) [Mass/Vol] 9.7 g/dL Low 13.0-17.0 [facility] Comment on above: Order Comment: Speci men Type: BLOOD SPECIMENOrdering Facility: [facility] Address: [address] [place] [address] Performed By: #### H GB ####[facility] LABORATORYCLIA [id number] [address] [place] Magnesium SerPl-mCncon 06-20 Magnesium [Mass/Vol] 2.5 mg/dL High 1.7-2.3 [facility] Comment on above: Order Comment: Speci men Type: BLOOD SPECIMENOrdering Facility: [facility] Address: [address] [place] [address] Performed By: #### 2 4321-2, 53613-3 ####[facility] LABORATORYCLIA [id number] [address] [place] NURSING PROGon 06-20-2021 NURSING PROG Normal [facility] THERAPY NTon 06-20-2021 THERAPY NT Normal [facility] aPTT PPPon 06-20-2021 aPTT Coag (PPP) [Time] 93.5 s High 23.0-32.4 [facility] Comment on above: Order Comment: Speci men Type: BLOOD SPECIMENOrdering Facility: [facility] Address: [address] [place] [address] Performed By: #### 1 4979-9 ####[facility] LABORATORYCLIA [id number] [place] [address] [place] aPTT Coag (PPP) [Time] 47.1 s High 23.0-32.4 [facility] Comment on above: Order Comment: Speci men Type: BLOOD SPECIMENOrdering Facility: [facility] Address: [address] [place] [address] Performed By: #### 1 4979-9 ####[facility] LABORATORYCLIA [id number] [place] [address] [place] Basic metabolic 2000 panelon 06-19-2021 Anion gap [Moles/Vol] 7 mmol/L Low 9-18 [facility] Comment on above: Order Comment: Speci men Type: BLOOD SPECIMENOrdering Facility: [facility] Address: [address] [place] [address] Performed By: #### 2 4321-2 ####[facility] LABORATORYCLIA [id number] [place] [address] [place] Calcium [Mass/Vol] 8.1 mg/dL Low 8.5-10.2 [facility] Comment on above: Order Comment: Speci men Type: BLOOD SPECIMENOrdering Facility: [facility] Address: [address] [place] [address] Performed By: #### 2 4321-2 ####[facility] LABORATORYCLIA [id number] [place] [address] [place] Chloride [Moles/Vol] 111 mmol/L High 97-105 [facility] Comment on above: Order Comment: Speci men Type: BLOOD SPECIMENOrdering Facility: [facility] Address: [address] [place] [address] Performed By: #### 2 4321-2 ####[facility]ORATORYCLIA [id number] [place] [address] [place] CO2 [Moles/Vol] 24 mmol/L Normal 22-30 [facility] Comment on above: Order Comment: Shira feldman Type: BLOOD SPECIMENOrdering Facility: [facility] Address: [address] [address] Performed By: #### 2 4321-2 ####[facility] LABORATORYCLIA [id number] [place] [address] [place] Creatinine [Mass/Vol] 0.71 mg/dL Low 0.73-1.22 [facility] Comment on above: Order Comment: Johncara feldman Type: BLOOD SPECIMENOrdering Facility: [facility] Address: [address] [place] [address] Performed By: #### 2 4321-2 ####[facility] [id number] [address] [place] GFR/1.73 sq M.predicted MDRD (S/P/Bld) [Vol rate/Area] mL/min/{1.73_m2} Normal [facility] Comment on above: Order Comment: Johncara feldman Type: BLOOD SPECIMENOrdering Facility: [facility] Address: [address] [place] [address] Result Comment: >60e GFR (Estimated GFR) Units [...] By: #### 2 4321-2 ####[facility] LABORATORYCLIA [id number] [address] [place] Glucose [Mass/Vol] 110 mg/dL High 74-99 [facility] Comment on above: Order Comment: Shira feldman Type: BLOOD SPECIMENOrdering Facility: [facility] Address: [address] [address] Result Comment: The [place] Diabetes [employer] (ADA) provides guidance for cutoff [...] Standards of Medical Care in Diabetes 2016, [place] [employer]. Diabetes Care. 2016.39(Suppl 1). Performed By: #### 2 4321-2 ####[facility] LABORATORYCLIA [id number] [place] [address] [place] Potassium [Moles/Vol] 3.7 mmol/L Normal 3.7-5.1 [facility] Comment on above: Order Comment: Speci men Type: BLOOD SPECIMENOrdering Facility: [facility] Address: [address] [place] [address] Performed By: #### 2 4321-2 ####[facility] LABORATORYCLIA [id number] [address] [place] Sodium [Moles/Vol] 142 mmol/L Normal 136-144 [facility] Comment on above: Order Comment: Speci men Type: BLOOD SPECIMENOrdering Facility: [facility] Address: [address] [place] [address] Performed By: #### 2 4321-2 ####[facility] LABORATORYCLIA [id number] [place] [address] [place] Urea nitrogen [Mass/Vol] 26 mg/dL High 9-24 [facility] Comment on above: Order Comment: Speci men Type: BLOOD SPECIMENOrdering Facility: [facility] Address: [address] [address] Performed By: #### 2 4321-2 ####[facility] LABORATORYCLIA [id number] [place] [address] CBC panel Auto (Bld)on 06-19 Erythrocyte distribution width (RBC) [Ratio] 15.7 % High 11.5-15.0 [facility] Comment on above: Order Comment: Speci men Type: BLOOD SPECIMENOrdering Facility: [facility] Address: [address] [place] [address] Performed By: #### 5 8410-2 ####[facility] LABORATORYCLIA [id number] [address] Hematocrit (Bld) [Volume fraction] 30.9 % Low 39.0-51.0 [facility] Comment on above: Order Comment: Speci men Type: BLOOD SPECIMENOrdering Facility: [facility] Address: [address] [place] [address] Performed By: #### 5 8410-2 ####[facility] LABORATORYCLIA [id number] [address] Hemoglobin (Bld) [Mass/Vol] 9.5 g/dL Low 13.0-17.0 [facility] Comment on above: Order Comment: Speci men Type: BLOOD SPECIMENOrdering Facility: [facility] Address: [address] [place] [address] Performed By: #### 5 8410-2 ####[facility] LABORATORYCLIA [id number] [address] MCH (RBC) [Entitic mass] 28.4 pg Normal 26.0-34.0 [facility] Comment on above: Order Comment: Speci men Type: BLOOD SPECIMENOrdering Facility: [facility] Address: [address] [place] [address] Performed By: #### 5 8410-2 ####[facility] LABORATORYCLIA [id number] [address] MCHC (RBC) [Mass/Vol] 30.7 g/dL Normal 30.5-36.0 [facility] Comment on above: Order Comment: Speci men Type: BLOOD SPECIMENOrdering Facility: [facility] Address: [address] [address] Performed By: #### 5 8410-2 ####[facility] LABORATORYCLIA [id number] [address] MCV (RBC) [Entitic vol] 92.2 fL Normal 80.0-100.0 [facility] Comment on above: Order Comment: Speci men Type: BLOOD SPECIMENOrdering Facility: [facility] Address: [address] [address] Performed By: #### 5 8410-2 ####[facility] LABORATORYCLIA [id number] [address] Nucleated RBC (Bld) [#/Vol] 10*3/uL Normal <0.01 [facility] Comment on above: Order Comment: Speci men Type: BLOOD SPECIMENOrdering Facility: [facility] Address: [address] [place] [address] Performed By: #### 5 8410-2 ####[facility] LABORATORYCLIA [id number] [address] Platelet mean volume (Bld) [Entitic vol] 11.7 fL Normal 9.0-12.7 [facility] Comment on above: Order Comment: Speci men Type: BLOOD SPECIMENOrdering Facility: [facility] Address: [address] Performed By: #### 5 8410-2 ####[place] [facility]ATORYCLIA [id number] [address] Platelets (Bld) [#/Vol] 323 10*3/uL Normal 150-400 [facility] Comment on above: Order Comment: Speci men Type: BLOOD SPECIMENOrdering Facility: [facility] Address: [address] [place] [address] Performed By: #### 5 8410-2 ####[place] [facility] LABORATORYCLIA [id number] [address] RBC (Bld) [#/Vol] 3.35 10*6/uL Low 4.20-6.00 [facility] Comment on above: Order Comment: Speci men Type: BLOOD SPECIMENOrdering Facility: [facility] Address: [address] [place] [address] Performed By: #### 5 8410-2 ####[place] [facility] LABORATORYCLIA [id number] [address] STATES OF [facility] WBC (Bld) [#/Vol] 9.53 10*3/uL Normal 3.70-11.00 [facility] Comment on above: Order Comment: Speci men Type: BLOOD SPECIMENOrdering Facility: [facility] Address: [address] [place] [address] Performed By: #### 5 8410-2 ####[place] LABORATORYCLIA [id number] [address] HEMOGLOBIN (HGB)on 2 Hemoglobin (Bld) [Mass/Vol] 9.7 g/dL Low 13.0-17.0 [facility] Comment on above: Order Comment: Speci men Type: BLOOD SPECIMENOrdering Facility: [facility] Address: [address] [place] [address] Performed By: #### H GB ####[place] LABORATORYCLIA [id number] [address] Magnesium SerPl-mCncon 06-19 Magnesium [Mass/Vol] 2.5 mg/dL High 1.7-2.3 [facility] Comment on above: Order Comment: Speci men Type: BLOOD SPECIMENOrdering Facility: [facility] Address: [address] [place] [address] Performed By: #### 1 9123-9, 2777-1 ####[place] [facility] LABORATORYCLIA [id number] [address] [place] NURSING PROGon 06-19-2021 NURSING PROG Normal [facility] Phosphate SerPl-mCncon 06-19 Phosphate [Mass/Vol] 2.6 mg/dL Low 2.7-4.8 [facility] Comment on above: Order Comment: Speci men Type: BLOOD SPECIMENOrdering Facility: [facility] Address: [address] [place] [address] Performed By: #### 1 9123-9, 2777-1 ####[place]ORATORYCLIA [id number] [address] aPTT PPPon 06-19-2021 aPTT Coag (PPP) [Time] 61.9 s High 23.0-32.4 [facility] Comment on above: Order Comment: Speci men Type: BLOOD SPECIMENOrdering Facility: [facility] Address: [address] [place] [address] Performed By: #### 1 4979-9 ####[place]ORATORYCLIA [id number] [address] aPTT Coag (PPP) [Time] 68.6 s High 23.0-32.4 [facility] Comment on above: Order Comment: Speci men Type: BLOOD SPECIMENOrdering Facility: [facility] Address: [address] [place] [address] Performed By: #### 1 4979-9 ####[place] LABORATORYCLIA [id number] [address] aPTT Coag (PPP) [Time] 83.2 s High 23.0-32.4 [facility] Comment on above: Order Comment: Speci men Type: BLOOD SPECIMENOrdering Facility: [facility] Address: [address] [place] [address] Performed By: #### 1 4979-9 ####[place] [facility] LABORATORYCLIA [id number] [address] [place] Basic metabolic 2000 panelon 06-18-2021 Anion gap [Moles/Vol] 7 mmol/L Low 9-18 [facility] Comment on above: Order Comment: Speci men Type: BLOOD SPECIMENOrdering Facility: [facility] Address: [address] [place] [address] Performed By: #### 2 4321-2, , 2776-05 ####[place]ORATORYCLIA [id number] [place] [address] [place] Calcium [Mass/Vol] 8.2 mg/dL Low 8.5-10.2 [facility] Comment on above: Order Comment: Speci men Type: BLOOD SPECIMENOrdering Facility: [facility] Address: [address] [place] [address] Performed By: #### 2 4321-2, , 2776-05 ####[place]ORATORYCLIA [id number] [place] [address] [place] Chloride [Moles/Vol] 115 mmol/L High 97-105 [facility] Comment on above: Order Comment: Speci men Type: BLOOD SPECIMENOrdering Facility: [facility] Address: [address] [place] [address] Performed By: #### 2 1-2, , 2776-05 ####[place] LABORATORYCLIA [id number] [place] [address] [place] CO2 [Moles/Vol] 23 mmol/L Normal 22-30 [facility] Comment on above: Order Comment: Speci men Type: BLOOD SPECIMENOrdering Facility: [facility] Address: [address] [place] [address] Performed By: #### 2 4321-2, , 2776-05 ####[place] LABORATORYCLIA [id number] [place] [address] [place] Creatinine [Mass/Vol] 0.70 mg/dL Low 0.73-1.22 [facility] Comment on above: Order Comment: Speci men Type: BLOOD SPECIMENOrdering Facility: [facility] Address: [address] [place] [address] Performed By: #### 2 4321-2, 09757-6, 2777-1 ####[place]ORATORYCLIA [id number] [place] [address] [place] GFR/1.73 sq M.predicted MDRD (S/P/Bld) [Vol rate/Area] mL/min/{1.73_m2} Normal [facility] Comment on above: Order Comment: Shira feldman Type: BLOOD SPECIMENOrdering Facility: [facility] Address: [address] [place], [place] [address] Result Comment: >60e GFR (Estimated GFR) Units [...] actual GFR. Performed By: #### 2 4321-2, 00577-5, 2777-1 ####[place] [facility] LABORATORYIA [id number] [place] [address] [place] Glucose [Mass/Vol] 105 mg/dL High 74-99 [facility] Comment on above: Order Comment: Shira feldman Type: BLOOD SPECIMENOrdering Facility: [facility] Address: [address] [place], [place] [address] Result Comment: The [place] Diabetes Association (ADA) provides guidance for cutoff [...] Standards of Medical Care in Diabetes 2016, [place] [employer]. Diabetes Care. 2016.39(Suppl 1). Performed By: #### 2 4321-2, , 2776- ####[place]ORATORYCLIA [id number] [place] [address] [place] Potassium [Moles/Vol] 4.1 mmol/L Normal 3.7-5.1 [facility] Comment on above: Order Comment: Speci men Type: BLOOD SPECIMENOrdering Facility: [facility] Address: [address] [place] [address] Performed By: #### 2 4321-2, , 2776- ####[place] [facility]ORATORYCLIA [id number] [place] [address] [place] Sodium [Moles/Vol] 145 mmol/L High 136-144 [facility] Comment on above: Order Comment: Speci men Type: BLOOD SPECIMENOrdering Facility: [facility] Address: [address] [place] [address] Performed By: #### 2 4321-2, , 2776-05 ####[place]ORATORYCLIA [id number] [place] [address] [place] Urea nitrogen [Mass/Vol] 27 mg/dL High 9-24 [facility] Comment on above: Order Comment: Speci men Type: BLOOD SPECIMENOrdering Facility: [facility] Address: [address] [place] [address] Performed By: #### 2 4321-2, , 2776-05 ####[place]ORATORYCLIA [id number] [place] [address] [place] CALCIUM IONIZED Bon 0220 22 Calcium.ionized (BldV) [Mass/Vol] 1.22 mmol/L Normal 1.08-1.30 [facility] Comment on above: Order Comment: Speci men Type: BLOOD SPECIMENOrdering Facility: [facility] Address: [address] [place] [address] Performed By: #### I CA ####[place] LABORATORYCLIA [id number] [address] Calcium.ionized adjusted to pH 7.4 (Bld) [Moles/Vol] 1.23 mmol/L Normal 1.08-1.30 [facility] Comment on above: Order Comment: Speci men Type: BLOOD SPECIMENOrdering Facility: [facility] Address: [address] [place] [address] Performed By: #### I CA ####[place]ORATORYCLIA [id number] [address] CBC panel Auto (Bld)on 06-18 Erythrocyte distribution width (RBC) [Ratio] 15.8 % High 11.5-15.0 [facility] Comment on above: Order Comment: Speci men Type: BLOOD SPECIMENOrdering Facility: [facility] Address: [address] [place] [address] Performed By: #### 5 8410-2 ####[facility]'S CENTERIA [id number] [address] Hematocrit (Bld) [Volume fraction] 29.5 % Low 39.0-51.0 [facility] Comment on above: Order Comment: Speci men Type: BLOOD SPECIMENOrdering Facility: [facility] Address: [address] [place] [address] Performed By: #### 5 8410-2 ####[place]ORATORYCLIA [id number] [address] Hemoglobin (Bld) [Mass/Vol] 8.8 g/dL Low 13.0-17.0 [facility] Comment on above: Order Comment: Speci men Type: BLOOD SPECIMENOrdering Facility: [facility] Address: [address] [place] [address] Performed By: #### 5 8410-2 ####[place]ORATORYCLIA [id number] [address] MCH (RBC) [Entitic mass] 27.4 pg Normal 26.0-34.0 [facility] Comment on above: Order Comment: Speci men Type: BLOOD SPECIMENOrdering Facility: [facility] Address: [address] [place] [address] Performed By: #### 5 8410-2 ####[place]ORATORYCLIA [id number] [address] MCHC (RBC) [Mass/Vol] 29.8 g/dL Low 30.5-36.0 [facility] Comment on above: Order Comment: Speci men Type: BLOOD SPECIMENOrdering Facility: [facility] Address: [address] [place] [address] Performed By: #### 5 8410-2 ####[place] [facility]ORATORYCLIA [id number] [address] STATES OF [facility] MCV (RBC) [Entitic vol] 91.9 fL Normal 80.0-100.0 [facility] Comment on above: Order Comment: Speci men Type: BLOOD SPECIMENOrdering Facility: [facility] Address: [address] [place] [address] Performed By: #### 5 8410-2 ####[place]ATORYCLIA [id number] [address] Nucleated RBC (Bld) [#/Vol] 10*3/uL Normal <0.01 [facility] Comment on above: Order Comment: Speci men Type: BLOOD SPECIMENOrdering Facility: [facility] Address: [address] [place] [address] Performed By: #### 5 8410-2 ####[place]ORATORYCLIA [id number] [address] Platelet mean volume (Bld) [Entitic vol] 11.9 fL Normal 9.0-12.7 [facility] Comment on above: Order Comment: Speci men Type: BLOOD SPECIMENOrdering Facility: [facility] Address: [address] [place] [address] Performed By: #### 5 8410-2 ####[place]ORATORYCLIA [id number] [address] [place] Platelets (Bld) [#/Vol] 291 10*3/uL Normal 150-400 [facility] Comment on above: Order Comment: Speci men Type: BLOOD SPECIMENOrdering Facility: [facility] Address: [address] [place] [address] Performed By: #### 5 8410-2 ####[place]ORATORYCLIA [id number] [address] [place] RBC (Bld) [#/Vol] 3.21 10*6/uL Low 4.20-6.00 [facility] Comment on above: Order Comment: Speci men Type: BLOOD SPECIMENOrdering Facility: [facility] Address: [address] [place] [address] Performed By: #### 5 8410-2 ####[place]ORATORYCLIA [id number] [address] WBC (Bld) [#/Vol] 10.19 10*3/uL Normal 3.70-11.00 [facility] Comment on above: Order Comment: Speci men Type: BLOOD SPECIMENOrdering Facility: [facility] Address: [address] [place] [address] Performed By: #### 5 8410-2 ####[facility]ORATORYCLIA [id number] [address] [place] FERRITIN BLDon 06-18-2021 Ferritin [Mass/Vol] 600.9 ng/mL High 30.3-565.7 [facility] Comment on above: Order Comment: Speci men Type: BLOOD SPECIMENOrdering Facility: [facility] Address: [address] [place] [address] Performed By: #### S ERFOL, IRON, FERR ####[place]ORATORYCLIA [id number] [address] FOLATE SERUMon 06-18-2021 Folate [Mass/Vol] 14.3 ng/mL Normal >4.7 [facility] Comment on above: Order Comment: Speci men Type: BLOOD SPECIMENOrdering Facility: [facility] Address: [address] [place] [address] Performed By: #### S ERFOL, IRON, FERR ####[place]ORATORYCLIA [id number] [address] STATES OF [facility] Gas and Carbon monoxide pane l (BldV)on 06-18-2021 Base excess Calc (BldV) [Moles/Vol] 0.5 mmol/L Normal 0-2 [facility] Comment on above: Order Comment: Speci men Type: VENOUS BLOOD SPECIMENOrdering Facility: [facility] Address: [address] [place] [address] Performed By: #### 2 4344-4 ####[place]ORATORYCLIA [id number] [address] STATES OF [facility] Body temperature 97.34 [degF] Normal [facility] Comment on above: Order Comment: Speci men Type: VENOUS BLOOD SPECIMENOrdering Facility: [facility] Address: [address] [place] [address] Performed By: #### 2 4344-4 ####[place]ORATORYCLIA [id number] [address] [place] CALCIUM IONIZED, PH CORRECTED 1.26 mmol/L Normal 1.08-1.30 [facility] Comment on above: Order Comment: Speci men Type: VENOUS BLOOD SPECIMENOrdering Facility: [facility] Address: [address] [place] [address] Performed By: #### 2 4344-4 ####[place]ORATORYCLIA [id number] [address] [place] Calcium.ionized (BldV) [Mass/Vol] 1.25 mmol/L Normal 1.08-1.30 [facility] Comment on above: Order Comment: Speci men Type: VENOUS BLOOD SPECIMENOrdering Facility: [facility] Address: [address] [place], [place] [address] Performed By: #### 2 4344-4 ####[place]ORATORYCLIA [id number] [address] Carboxyhemoglobin (BldV) [Mass fraction] 1.5 % Normal 0.0-2.0 [facility] Comment on above: Order Comment: Speci men Type: VENOUS BLOOD SPECIMENOrdering Facility: [facility] Address: [address] [place] [address] Result Comment: Carb oxyhemoglobin Reference Range for Smokers: 2.0-8.0% Performed By: #### 2 4344-4 ####[place]ORATORYCLIA [id number] [address] [place] CO2 (BldV) [Partial pressure] 38 mm[Hg] Low 42-55 [facility] Comment on above: Order Comment: Speci men Type: VENOUS BLOOD SPECIMENOrdering Facility: [facility] Address: [address] [place] [address] Performed By: #### 2 4344-4 ####[place]ORATORYCLIA [id number] [address] [place] CO2 [Moles/Vol] 22.9 mmol/L Low 25-29 [facility] Comment on above: Order Comment: Speci men Type: VENOUS BLOOD SPECIMENOrdering Facility: [facility] Address: [address] [place] [address] Performed By: #### 2 4344-4 ####[place]ORATORYCLIA [id number] [address] [place] CO2 adjusted to patient's actual temperature (BldV) [Partial pressure] 37 mmHg Low 42-55 [facility] Comment on above: Order Comment: Speci men Type: VENOUS BLOOD SPECIMENOrdering Facility: [facility] Address: [address] [place] [address] Performed By: #### 2 4344-4 ####[facility] LABORATORYCLIA [id number] [place] [address] [place] Glucose [Mass/Vol] 103 mg/dL Normal 60-105 [facility] Comment on above: Order Comment: Speci men Type: VENOUS BLOOD SPECIMENOrdering Facility: [facility] Address: [address] [place] [address] Performed By: #### 2 4344-4 ####[place] LABORATORYCLIA [id number] [place] [id number] [place] HCO3 (Bld) [Moles/Vol] 24.4 mmol/L Normal 24-[address] [facility] Comment on above: Order Comment: Speci men Type: VENOUS BLOOD SPECIMENOrdering Facility: [facility] Address: [address] [place] [address] Performed By: #### 2 4344-4 ####[place] LABORATORYCLIA [id number] [address] [place] Hematocrit (Bld) [Volume fraction] 28.7 % Low 39.0-51.0 [facility] Comment on above: Order Comment: Speci men Type: VENOUS BLOOD SPECIMENOrdering Facility: [facility] Address: [address] [place] [address] Performed By: #### 2 4344-4 ####[facility] LABORATORYCLIA [id number] [address] [place] Hemoglobin (Bld) [Mass/Vol] 9.3 g/dL Low 13.0-17.0 [facility] Comment on above: Order Comment: Speci men Type: VENOUS BLOOD SPECIMENOrdering Facility: [facility] Address: [address] [address] Performed By: #### 2 4344-4 ####[facility] LABORATORYCLIA [id number] [address] [place] Methemoglobin (Bld) [Mass fraction] % Normal 0.0-1.5 [facility] Comment on above: Order Comment: Speci men Type: VENOUS BLOOD SPECIMENOrdering Facility: [facility] Address: [address] [place] [address] Performed By: #### 2 4344-4 ####[facility] [facility]ORATORYCLIA [id number] [address] O2 THERAPY Ventilator Normal [facility] Comment on above: Order Comment: Speci men Type: VENOUS BLOOD SPECIMENOrdering Facility: [facility] Address: [address] [place] [address] Performed By: #### 2 4344-4 ####[facility]ORATORYCLIA [id number] [address] [place] Oxygen (BldV) [Partial pressure] 37 mm[Hg] Normal 35-45 [facility] Comment on above: Order Comment: Speci men Type: VENOUS BLOOD SPECIMENOrdering Facility: [facility] Address: [address] [place] [address] Performed By: #### 2 4344-4 ####[facility]ATORYCLIA [id number] [address] Oxygen adjusted to patient's actual temperature (BldV) [Partial pressure] 35.1 mmHg Normal 35-45 [facility] Comment on above: Order Comment: Speci men Type: VENOUS BLOOD SPECIMENOrdering Facility: [facility] Address: [address] [place] [address] Performed By: #### 2 4344-4 ####[facility]ORATORYCLIA [id number] [address] Oxygen saturation in Blood 67.1 % Normal 60-85 [facility] Comment on above: Order Comment: Speci men Type: VENOUS BLOOD SPECIMENOrdering Facility: [facility] Address: [address] [place] [address] Performed By: #### 2 4344-4 ####[facility]ORATORYCLIA [id number] [address] Oxyhemoglobin (BldV) [Mass fraction] 66 % Normal 60-85 [facility] Comment on above: Order Comment: Speci men Type: VENOUS BLOOD SPECIMENOrdering Facility: [facility] Address: [address] [address] Performed By: #### 2 4344-4 ####[facility] LABORATORYCLIA [id number] [address] STATES OF [facility] pH (BldV) 7.42 [pH] Normal 7.32-7.42 [facility] Comment on above: Order Comment: Speci men Type: VENOUS BLOOD SPECIMENOrdering Facility: [facility] Address: [address] [place] [address] Performed By: #### 2 4344-4 ####[facility]ORATORYCLIA [id number] [address] pH adjusted to patient's actual temperature (BldV) 7.43 High 7.32-7.42 [facility] Comment on above: Order Comment: Speci men Type: VENOUS BLOOD SPECIMENOrdering Facility: [facility] Address: [address] [place] [address] Performed By: #### 2 4344-4 ####[facility] LABORATORYCLIA [id number] [address] [place] Potassium [Moles/Vol] 4.0 mmol/L Normal 3.5-5.0 [facility] Comment on above: Order Comment: Speci men Type: VENOUS BLOOD SPECIMENOrdering Facility: [facility] Address: [address] [place] [address] Performed By: #### 2 4344-4 ####[facility] LABORATORYCLIA [id number] [address] [place] Sodium [Moles/Vol] 146 mmol/L High 136-144 [facility] Comment on above: Order Comment: Speci men Type: VENOUS BLOOD SPECIMENOrdering Facility: [facility] Address: [address] [place] [address] Performed By: #### 2 4344-4 ####[facility] LABORATORYCLIA [id number] [address] [place] HEMOGLOBIN (HGB)on 2 Hemoglobin (Bld) [Mass/Vol] 9.2 g/dL Low 13.0-17.0 [facility] Comment on above: Order Comment: Speci men Type: BLOOD SPECIMENOrdering Facility: [facility] Address: [address] [place] [address] Performed By: #### H GB ####[facility] LABORATORYCLIA [id number] [address] [place] IRON + TIBCon 06-18-2021 Iron [Mass/Vol] 27 ug/dL Low 41-186 [facility] Comment on above: Order Comment: Speci men Type: BLOOD SPECIMENOrdering Facility: [facility] Address: [address] [place] [address] Performed By: #### S ERFOL, IRON, FERR ####[facility] LABORATORYCLIA [id number] [address] [place] Iron binding capacity [Mass/Vol] 141 ug/dL Low 232-386 [facility] Comment on above: Order Comment: Speci men Type: BLOOD SPECIMENOrdering Facility: [facility] Address: [address] [place] [address] Performed By: #### S ERFOL, IRON, FERR ####[facility] LABORATORYCLIA [id number] [address] Iron saturation [Mass fraction] 19 % Normal 15-57 [facility] Comment on above: Order Comment: Speci men Type: BLOOD SPECIMENOrdering Facility: [facility] Address: [address] [place] [address] Performed By: #### S ERFOL, IRON, FERR ####[facility] LABORATORYCLIA [id number] [address] [place] Magnesium SerPl-mCncon 06-18 Magnesium [Mass/Vol] 2.5 mg/dL High 1.7-2.3 [facility] Center Comment on above: Order Comment: Speci men Type: BLOOD SPECIMENOrdering Facility: [facility] Address: [address] [place], [place] [address] Performed By: #### 2 4321-2, 96543-5, 2777-1 ####[facility] LABORATORYCLIA [id number] [address] NURSING PROGon 06-18-2021 NURSING PROG Normal [facility] Phosphate SerPl-mCncon 06-18 Phosphate [Mass/Vol] 3.0 mg/dL Normal 2.7-4.8 [facility] Comment on above: Order Comment: Speci men Type: BLOOD SPECIMENOrdering Facility: [facility] Address: [address] [place] [address] Performed By: #### 2 4321-2, , 2777 ####[facility] LABORATORYCLIA [id number] [address] THERAPY NTon 06-18-2021 THERAPY NT Normal [facility] aPTT PPPon 06-18-2021 aPTT Coag (PPP) [Time] 43.0 s High 23.0-32.4 [facility] Comment on above: Order Comment: Speci men Type: BLOOD SPECIMENOrdering Facility: [facility] Address: [address] [place] [address] Performed By: #### 1 4979-9 ####[facility] LABORATORYCLIA [id number] [address] aPTT Coag (PPP) [Time] 60.6 s High 23.0-32.4 [facility] Comment on above: Order Comment: Speci men Type: BLOOD SPECIMENOrdering Facility: [facility] Address: [address] [place] [address] Performed By: #### 1 4979-9 ####[facility] LABORATORYCLIA [id number] [address] aPTT Coag (PPP) [Time] 46.4 s High 23.0-32.4 [facility] Comment on above: Order Comment: Speci men Type: BLOOD SPECIMENOrdering Facility: [facility] Address: [address] [place] [address] Performed By: #### 1 4979-9 ####[facility] LABORATORYCLIA [id number] [place] [address] [place] Basic metabolic 2000 panelon 06-17-2021 Anion gap [Moles/Vol] 7 mmol/L Low 9-18 [facility] Comment on above: Order Comment: Speci men Type: BLOOD SPECIMENOrdering Facility: [facility] Address: [address] [place] [address] Performed By: #### 2 951-2, 55669-6, 2777-1, 45352-0 ####[facility] LABORATORYCLIA [id number] [address] [place] Calcium [Mass/Vol] 8.1 mg/dL Low 8.5-10.2 [facility] Comment on above: Order Comment: Speci men Type: BLOOD SPECIMENOrdering Facility: [facility] Address: [address] [place] [address] Performed By: #### 2 951-2, 12132-3, 277-1, 65400-8 ####[facility]ORATORYCLIA [id number] [place] [address] [place] Chloride [Moles/Vol] 113 mmol/L High 97-105 [facility] Comment on above: Order Comment: Speci men Type: BLOOD SPECIMENOrdering Facility: [facility] Address: [address] [place] [address] Performed By: #### 2 951-2, 78696-9, 1, 15182-2 ####[facility] LABORATORYCLIA [id number] [place] [address] [place] CO2 [Moles/Vol] 25 mmol/L Normal 22-30 [facility] Comment on above: Order Comment: Speci men Type: BLOOD SPECIMENOrdering Facility: [facility] Address: [address] [place] [address] Performed By: #### 2 951-2, 54959-3, 2776-, 04757-2 ####[facility] LABORATORYCLIA [id number] [place] [address] [place] Creatinine [Mass/Vol] 0.70 mg/dL Low 0.73-1.22 [facility] Comment on above: Order Comment: [facility] Type: BLOOD SPECIMENOrdering Facility: [facility] Address: [address] [place] [address] Performed By: #### 2 951-2, , 2776-05, 69696-0 ####[facility]ITAL[facility] [id number] [place] [address] [place] GFR/1.73 sq M.predicted MDRD (S/P/Bld) [Vol rate/Area] mL/min/{1.73_m2} Normal [facility] Comment on above: Order Comment: [facility] Type: BLOOD SPECIMENOrdering Facility: [facility] Address: [address] [place] [address] Result Comment: >60e GFR (Estimated GFR) Units [...] actual GFR. Performed By: #### 2 951-2, 67444-0, 277-, 52617-0 ####[facility] LABORATORYCLIA [id number] [place] [id number] [place] Glucose [Mass/Vol] 122 mg/dL High 74-99 [facility] Comment on above: Order Comment: [facility] Type: BLOOD SPECIMENOrdering Facility: [facility] Address: [address] [place] [address] Result Comment: The [place] Diabetes Association (ADA) provides guidance for cutoff [...] Standards of Medical Care in Diabetes 2016, [place] [employer]. Diabetes Care. 2016.39(Suppl 1). Performed By: #### 2 951-2, 03118-5, 2776-, 20511-9 ####[facility] LABORATORYCLIA [id number] [place] [address] [place] Potassium [Moles/Vol] 3.5 mmol/L Low 3.7-5.1 [facility] Comment on above: Order Comment: Shira feldman Type: BLOOD SPECIMENOrdering Facility: [facility] Address: [address] [place] [address] Performed By: #### 2 951-2, , 2776-05, 21133-6 ####[facility] LABORATORYCLIA [id number] [address] [place] Urea nitrogen [Mass/Vol] 27 mg/dL High 9-24 [facility] Comment on above: Order Comment: Shira feldman Type: BLOOD SPECIMENOrdering Facility: [facility] Address: [address] [place] [address] Performed By: #### 2 951-2, , 2776-05, 89470-9 ####[facility] LABORATORYCLIA [id number] [place] [address] [place] CASE MANAGEMon 06-17-2021 CASE MANAGEM Normal [facility] CBC panel Auto (Bld)on 06-17 Erythrocyte distribution width (RBC) [Ratio] 15.9 % High 11.5-15.0 [facility] Comment on above: Order Comment: Speci men Type: BLOOD SPECIMENOrdering Facility: [facility] Address: [address] [place] [address] Performed By: #### 5 8410-2 ####[facility] LABORATORYCLIA [id number] [address] Hematocrit (Bld) [Volume fraction] 28.9 % Low 39.0-51.0 [facility] Comment on above: Order Comment: Speci men Type: BLOOD SPECIMENOrdering Facility: [facility] Address: [address] [place] [address] Performed By: #### 5 8410-2 ####[facility] LABORATORYCLIA [id number] [address] Hemoglobin (Bld) [Mass/Vol] 8.8 g/dL Low 13.0-17.0 [facility] Comment on above: Order Comment: Speci men Type: BLOOD SPECIMENOrdering Facility: [facility] Address: [address] [place] [address] Performed By: #### 5 8410-2 ####[facility] LABORATORYCLIA [id number] [address] MCH (RBC) [Entitic mass] 28.4 pg Normal 26.0-34.0 [facility] Comment on above: Order Comment: Speci men Type: BLOOD SPECIMENOrdering Facility: [facility] Address: [address] [place] [address] Performed By: #### 5 8410-2 ####[facility] LABORATORYCLIA [id number] [address] [place] MCHC (RBC) [Mass/Vol] 30.4 g/dL Low 30.5-36.0 [facility] Comment on above: Order Comment: Speci men Type: BLOOD SPECIMENOrdering Facility: [facility] Address: [address] [place] [address] Performed By: #### 5 8410-2 ####[facility] LABORATORYCLIA [id number] [address] OF [facility] MCV (RBC) [Entitic vol] 93.2 fL Normal 80.0-100.0 [facility] Comment on above: Order Comment: Speci men Type: BLOOD SPECIMENOrdering Facility: [facility] Address: [address] [place] [address] Performed By: #### 5 8410-2 ####[facility]ORATORYCLIA [id number] [address] Nucleated RBC (Bld) [#/Vol] 10*3/uL Normal <0.01 [facility] Comment on above: Order Comment: Speci men Type: BLOOD SPECIMENOrdering Facility: [facility] Address: [address] [place] [address] Performed By: #### 5 8410-2 ####[facility] LABORATORYCLIA [id number] [address] Platelet mean volume (Bld) [Entitic vol] 11.9 fL Normal 9.0-12.7 [facility] Comment on above: Order Comment: Speci men Type: BLOOD SPECIMENOrdering Facility: [facility] Address: [address] [place] [address] Performed By: #### 5 8410-2 ####[facility]ORATORYCLIA [id number] [address] Platelets (Bld) [#/Vol] 257 10*3/uL Normal 150-400 [facility] Comment on above: Order Comment: Speci men Type: BLOOD SPECIMENOrdering Facility: [facility] Address: [address] [place] [address] Performed By: #### 5 8410-2 ####[facility] LABORATORYCLIA [id number] [address] [place] RBC (Bld) [#/Vol] 3.10 10*6/uL Low 4.20-6.00 [facility] Comment on above: Order Comment: Speci men Type: BLOOD SPECIMENOrdering Facility: [facility] Address: [address] [place] [address] Performed By: #### 5 8410-2 ####[facility] LABORATORYCLIA [id number] [address] OF [facility] WBC (Bld) [#/Vol] 10.54 10*3/uL Normal 3.70-11.00 [facility] Comment on above: Order Comment: Speci men Type: BLOOD SPECIMENOrdering Facility: [facility] Address: [address] [place] [address] Performed By: #### 5 8410-2 ####[facility] LABORATORYCLIA [id number] [address] [place] HEMOGLOBIN (HGB)on Hemoglobin (Bld) [Mass/Vol] 8.8 g/dL Low 13.0-17.0 [facility] Comment on above: Order Comment: Speci men Type: BLOOD SPECIMENOrdering Facility: [facility] Address: [address] [place] [address] Performed By: #### H GB ####[facility] LABORATORYCLIA [id number] [address] [place] Magnesium SerPl-mCncon 06-17 Magnesium [Mass/Vol] 2.5 mg/dL High 1.7-2.3 [facility] Comment on above: Order Comment: Speci men Type: BLOOD SPECIMENOrdering Facility: [facility] Address: [address] [place] [address] Performed By: #### 2 951-2, 61155-0, 2777-1, 16134-0 ####[facility] LABORATORYCLIA [id number] [address] [place] NURSING PROGon 06-17-2021 NURSING PROG Normal [facility] NURSING PROG Normal [facility] NURSING PROG Normal [facility] Phosphate SerPl-mCncon 06-17 Phosphate [Mass/Vol] 1.9 mg/dL Low 2.7-4.8 [facility] Comment on above: Order Comment: Speci men Type: BLOOD SPECIMENOrdering Facility: [facility] Address: [address] [place] [address] Performed By: #### 2 951-2, , 277-1, 05232-9 ####[facility] LABORATORYCLIA [id number] [address] STATES OF [facility] Sodium SerPl-sCncon 06-17-19 Sodium [Moles/Vol] 144 mmol/L Normal 136-144 [facility] Comment on above: Order Comment: Speci men Type: BLOOD SPECIMENOrdering Facility: [facility] Address: [address] [place] [address] Performed By: #### 2 951-2 ####[facility]ORATORYCLIA [id number] [address] Sodium [Moles/Vol] 145 mmol/L High 136-144 [facility] Comment on above: Order Comment: Speci men Type: BLOOD SPECIMENOrdering Facility: [facility] Address: [address] [place] [address] Performed By: #### 2 951-2, , 2776-05, 16412-4 ####[facility] LABORATORYCLIA [id number] [address] [place] aPTT PPPon 06-17-2021 aPTT Coag (PPP) [Time] 55.8 s High 23.0-32.4 [facility] Comment on above: Order Comment: Speci men Type: BLOOD SPECIMENOrdering Facility: [facility] Address: [address] [place] [address] Performed By: #### 1 4979-9 ####[facility] LABORATORYCLIA [id number] [address] [place] ARTERIAL BLOOD GASESon 06-16 Base excess Calc (Bld) [Moles/Vol] 3 mmol/L High 0-2 [facility] Comment on above: Order Comment: Speci men Type: ARTERIAL BLOOD SPECIMENOrdering Facility: [facility] Address: [address] [place] [address] Performed By: #### A LLBG ####[facility] LABORATORYCLIA [id number] [address] Body temperature 99.14 [degF] Normal [facility] Comment on above: Order Comment: Speci men Type: ARTERIAL BLOOD SPECIMENOrdering Facility: [facility] Address: [address] [place] [address] Performed By: #### A LLBG ####[facility] LABORATORYCLIA [id number] [address] [place] CALCIUM IONIZED, PH CORRECTED 1.21 mmol/L Normal 1.08-1.30 [facility] Comment on above: Order Comment: Speci men Type: ARTERIAL BLOOD SPECIMENOrdering Facility: [facility] Address: [address] [place] [address] Performed By: #### A LLBG ####[facility] LABORATORYCLIA [id number] [address] [place] Calcium.ionized (BldV) [Mass/Vol] 1.17 mmol/L Normal 1.08-1.30 [facility] Comment on above: Order Comment: Speci men Type: ARTERIAL BLOOD SPECIMENOrdering Facility: [facility] Address: [address] [place] [address] Performed By: #### A LLBG ####[facility] LABORATORYCLIA [id number] [address] [place] Carboxyhemoglobin (BldA) [Mass fraction] 1.4 % Normal 0.0-2.0 [facility] Comment on above: Order Comment: Speci men Type: ARTERIAL BLOOD SPECIMENOrdering Facility: [facility] Address: [address] [place] [address] Result Comment: Carb oxyhemoglobin Reference Range for Smokers: 2.0-8.0% Performed By: #### A LLBG ####[facility]ORATORYCLIA [id number] [address] [place] CO2 (Bld) [Partial pressure] 38 mm Hg Normal 36-46 [facility] Comment on above: Order Comment: Speci men Type: ARTERIAL BLOOD SPECIMENOrdering Facility: [facility] Address: [address] [place] [address] Performed By: #### A LLBG ####[facility]ORATORYCLIA [id number] [address] [place] CO2 [Moles/Vol] 24.5 mmol/L Normal 22-28 [facility] Comment on above: Order Comment: Speci men Type: ARTERIAL BLOOD SPECIMENOrdering Facility: [facility] Address: [address] [place] [address] Performed By: #### A LLBG ####[facility] LABORATORYCLIA [id number] [address] [place] CO2 adjusted to patient's actual temperature (Bld) [Partial pressure] 38 mmHg Normal 36-46 [facility] Comment on above: Order Comment: Speci men Type: ARTERIAL BLOOD SPECIMENOrdering Facility: [facility] Address: [address] [place] [address] Performed By: #### A LLBG ####[facility] LABORATORYCLIA [id number] [address] [place] Glucose [Mass/Vol] 147 mg/dL High 60-105 [facility] Comment on above: Order Comment: Speci men Type: ARTERIAL BLOOD SPECIMENOrdering Facility: [facility] Address: [address] [place] [address] Performed By: #### A LLBG ####[facility] LABORATORYCLIA [id number] [address] [place] HCO3 (Bld) [Moles/Vol] 27 mmol/L High 22-26 [facility] Comment on above: Order Comment: Speci men Type: ARTERIAL BLOOD SPECIMENOrdering Facility: [facility] Address: [address] [place] [address] Performed By: #### A LLBG ####[facility] LABORATORYCLIA [id number] [address] OF [facility] Hematocrit (Bld) [Volume fraction] 31.8 % Low 39.0-51.0 [facility] Comment on above: Order Comment: Speci men Type: ARTERIAL BLOOD SPECIMENOrdering Facility: [facility] Address: [address] [place] [address] Performed By: #### A LLBG ####[facility] LABORATORYCLIA [id number] [address] OF [facility] Hemoglobin (Bld) [Mass/Vol] 10.3 g/dL Low 13.0-17.0 [facility] Comment on above: Order Comment: Speci men Type: ARTERIAL BLOOD SPECIMENOrdering Facility: [facility] Address: [address] [place] [address] Performed By: #### A LLBG ####[facility] LABORATORYCLIA [id number] [address] OF [facility] Methemoglobin (Bld) [Mass fraction] 1.0 % Normal 0.0-1.5 [facility] Comment on above: Order Comment: Speci men Type: ARTERIAL BLOOD SPECIMENOrdering Facility: [facility] Address: [address] [place] [address] Performed By: #### A LLBG ####[facility] LABORATORYCLIA [id number] [address] [place] O2 THERAPY Ventilator Normal [facility] Comment on above: Order Comment: Speci men Type: ARTERIAL BLOOD SPECIMENOrdering Facility: [facility] Address: [address] [place] [address] Performed By: #### A LLBG ####[facility] LABORATORYCLIA [id number] [address] Oxygen (Bld) [Partial pressure] 78 mm Hg Low 85-95 [facility] Comment on above: Order Comment: Speci men Type: ARTERIAL BLOOD SPECIMENOrdering Facility: [facility] Address: [address] [place] [address] Performed By: #### A LLBG ####[facility] LABORATORYCLIA [id number] [address] Oxygen adjusted to patient's actual temperature (Bld) [Partial pressure] 79.7 mmHg Low 85-95 [facility] Comment on above: Order Comment: Speci men Type: ARTERIAL BLOOD SPECIMENOrdering Facility: [facility] Address: [address] [place] [address] Performed By: #### A LLBG ####[facility] LABORATORYCLIA [id number] [address] OXYGEN SATURATION, ARTERIAL 96 % Normal 95-98 [facility] Comment on above: Order Comment: Speci men Type: ARTERIAL BLOOD SPECIMENOrdering Facility: [facility] Address: [address] [place] [address] Performed By: #### A LLBG ####[facility] LABORATORYCLIA [id number] [address] Oxyhemoglobin (BldA) [Mass fraction] 94 % Low 95-98 [facility] Comment on above: Order Comment: Speci men Type: ARTERIAL BLOOD SPECIMENOrdering Facility: [facility] Address: [address] [place] [address] Performed By: #### A LLBG ####[facility] LABORATORYCLIA [id number] [address] [place] pH (Bld) 7.47 [pH] High 7.35-7.45 [facility] Comment on above: Order Comment: Speci men Type: ARTERIAL BLOOD SPECIMENOrdering Facility: [facility] Address: [address] [place] [address] Performed By: #### A LLBG ####[facility] LABORATORYCLIA [id number] [address] [place] pH adjusted to patient's actual temperature (Bld) 7.46 High 7.35-7.45 [facility] Comment on above: Order Comment: Speci men Type: ARTERIAL BLOOD SPECIMENOrdering Facility: [facility] Address: [address] [place] [address] Performed By: #### A LLBG ####[facility] LABORATORYCLIA [id number] [address] STATES OF [facility] Potassium [Moles/Vol] 3.7 mmol/L Normal 3.5-5.0 [facility] Comment on above: Order Comment: Speci men Type: ARTERIAL BLOOD SPECIMENOrdering Facility: [facility] Address: [address] [place] [address] Performed By: #### A LLBG ####[facility] LABORATORYCLIA [id number] [address] STATES [facility] Sodium [Moles/Vol] 155 mmol/L High 136-144 [facility] Comment on above: Order Comment: Speci men Type: ARTERIAL BLOOD SPECIMENOrdering Facility: [facility] Address: [address] [place] [address] Performed By: #### A LLBG ####[facility] LABORATORYCLIA [id number] [address] Bacteria Spec Resp Culton Bacteria identified Respiratory culture Nom (Unsp spec) CULTURE, RESPIRATORY: Rare Normal respiratory chris present ORGANISM ID: 1 Few Yeast, not cryptococcus neoformans GRAM STAIN: No organisms seen Few Polymorphonuclear leukocytes Few Epithelial cells Abnormal [facility] Comment on above: Performed By: #### 3 2355-0 ####[facility] LABORATORYCLIA [id number] [address] [place] Basic metabolic 2000 panelon 06-16-2021 Anion gap [Moles/Vol] 9 mmol/L Normal 9-18 [facility] Comment on above: Order Comment: Speci men Type: BLOOD SPECIMENOrdering Facility: [facility] Address: [address] [place] [address] Performed By: #### 2 4321-2 ####[facility] LABORATORYCLIA [id number] [place] [address] [place] Calcium [Mass/Vol] 8.4 mg/dL Low 8.5-10.2 [facility] Comment on above: Order Comment: Speci men Type: BLOOD SPECIMENOrdering Facility: [facility] Address: [address] [place] [address] Performed By: #### 2 4321-2 ####[facility] LABORATORYCLIA [id number] [place] [address] [place] Chloride [Moles/Vol] 120 mmol/L High 97-105 [facility] Comment on above: Order Comment: Speci men Type: BLOOD SPECIMENOrdering Facility: [facility] Address: [address] [place] [address] Performed By: #### 2 4321-2 ####[facility] LABORATORYCLIA [id number] [place] [address] [place] CO2 [Moles/Vol] 27 mmol/L Normal 22-30 [facility] Comment on above: Order Comment: Speci men Type: BLOOD SPECIMENOrdering Facility: [facility] Address: [address] [place] [address] Performed By: #### 2 4321-2 ####[facility] LABORATORYCLIA [id number] [place] [address] [place] Creatinine [Mass/Vol] 0.75 mg/dL Normal 0.73-1.22 [facility] Comment on above: Order Comment: Speci men Type: BLOOD SPECIMENOrdering Facility: [facility] Address: [address] [place] [address] Performed By: #### 2 4321-2 ####[facility] LABORATORYCLIA [id number] [place] [address] [place] GFR/1.73 sq M.predicted MDRD (S/P/Bld) [Vol rate/Area] mL/min/{1.73_m2} Normal [facility] Comment on above: Order Comment: Speci men Type: BLOOD SPECIMENOrdering Facility: [facility] Address: [address] [id number] Result Comment: >60e GFR (Estimated GFR) Units [...] By: #### 2 4321-2 ####[facility] LABORATORYCLIA [id number] [place] [address] [place] Glucose [Mass/Vol] 160 mg/dL High 74-99 [facility] Comment on above: Order Comment: Speccara feldman Type: BLOOD SPECIMENOrdering Facility: [facility] Address: [address] [place] [address] Result Comment: The [place] [employer] Association (ADA) provides guidance for cutoff [...] Standards of Medical Care in Diabetes 2016, [place] [employer]. Diabetes Care. 2016.39(Suppl 1). Performed By: #### 2 4321-2 ####[facility] LABORATORYCLIA [id number] [place] [address] [place] Potassium [Moles/Vol] 3.1 mmol/L Low 3.7-5.1 [facility] Comment on above: Order Comment: Speccara feldman Type: BLOOD SPECIMENOrdering Facility: [facility] Address: [address] Performed By: #### 2 4321-2 ####[facility] LABORATORYCLIA [id number] [address] STATES OF [facility] Sodium [Moles/Vol] 156 mmol/L High 136-144 [facility] Comment on above: Order Comment: Speci men Type: BLOOD SPECIMENOrdering Facility: [facility] Address: [address] [place] [address] Performed By: #### 2 4321-2 ####[facility] LABORATORYCLIA [id number] [place] [address] [place] Urea nitrogen [Mass/Vol] 33 mg/dL High 9-24 [facility] Comment on above: Order Comment: Speci men Type: BLOOD SPECIMENOrdering Facility: [facility] Address: [address] [place] [address] Performed By: #### 2 4321-2 ####[facility] LABORATORYCLIA [id number] [address] [place] CASE MANAGEMon 06-16-2021 CASE MANAGEM Normal [facility] CBC panel Auto (Bld)on 06-16 Erythrocyte distribution width (RBC) [Ratio] 15.9 % High 11.5-15.0 [facility] Comment on above: Order Comment: Speci men Type: BLOOD SPECIMENOrdering Facility: [facility] Address: [address] [place] [address] Performed By: #### 5 8410-2 ####[facility] LABORATORYCLIA [id number] [address] [place] Hematocrit (Bld) [Volume fraction] 34.6 % Low 39.0-51.0 [facility] Comment on above: Order Comment: Speci men Type: BLOOD SPECIMENOrdering Facility: [facility] Address: [address] [place] [address] Performed By: #### 5 8410-2 ####[facility] LABORATORYCLIA [id number] [address] [place] Hemoglobin (Bld) [Mass/Vol] 10.2 g/dL Low 13.0-17.0 [facility] Comment on above: Order Comment: Speci men Type: BLOOD SPECIMENOrdering Facility: [facility] Address: [address] [place] [address] Performed By: #### 5 8410-2 ####[facility] LABORATORYCLIA [id number] [address] MCH (RBC) [Entitic mass] 28.5 pg Normal 26.0-34.0 [facility] Comment on above: Order Comment: Speci men Type: BLOOD SPECIMENOrdering Facility: [facility] Address: [address] [place] [address] Performed By: #### 5 8410-2 ####[facility] LABORATORYCLIA [id number] [address] STATES OF [facility] MCHC (RBC) [Mass/Vol] 29.5 g/dL Low 30.5-36.0 [facility] Comment on above: Order Comment: Speci men Type: BLOOD SPECIMENOrdering Facility: [facility] Address: [address] [place] [address] Performed By: #### 5 8410-2 ####[facility] LABORATORYCLIA [id number] [address] STATES [facility] MCV (RBC) [Entitic vol] 96.6 fL Normal 80.0-100.0 [facility] Comment on above: Order Comment: Speci men Type: BLOOD SPECIMENOrdering Facility: [facility] Address: [address] [place] [address] Performed By: #### 5 8410-2 ####[facility] LABORATORYCLIA [id number] [address] Nucleated RBC (Bld) [#/Vol] 10*3/uL Normal <0.01 [facility] Comment on above: Order Comment: Speci men Type: BLOOD SPECIMENOrdering Facility: [facility] Address: [address] [place] [address] Performed By: #### 5 8410-2 ####[facility] LABORATORYCLIA [id number] [address] [place] Platelet mean volume (Bld) [Entitic vol] 11.9 fL Normal 9.0-12.7 [facility] Comment on above: Order Comment: Speci men Type: BLOOD SPECIMENOrdering Facility: [facility] Address: [address] [place] [address] Performed By: #### 5 8410-2 ####[facility] LABORATORYCLIA [id number] [address] [place] Platelets (Bld) [#/Vol] 269 10*3/uL Normal 150-400 [facility] Comment on above: Order Comment: Speci men Type: BLOOD SPECIMENOrdering Facility: [facility] Address: [address] [place] [address] Performed By: #### 5 8410-2 ####[facility] LABORATORYCLIA [id number] [place] [address] [place] RBC (Bld) [#/Vol] 3.58 10*6/uL Low 4.20-6.00 [facility] Comment on above: Order Comment: Speci men Type: BLOOD SPECIMENOrdering Facility: [facility] Address: [address] [place] [address] Performed By: #### 5 8410-2 ####[facility] LABORATORYCLIA [id number] [place] [address] [place] WBC (Bld) [#/Vol] 13.11 10*3/uL High 3.70-11.00 [facility] Comment on above: Order Comment: Speci men Type: BLOOD SPECIMENOrdering Facility: [facility] Address: [address] [place] [address] Performed By: #### 5 8410-2 ####[facility] LABORATORYCLIA [id number] [address] [place] CONSULTon 06-16-2021 CONSULT Normal [facility] CONSULT PROGon 06-16-2021 CONSULT PROG Normal [facility] CT BRAIN WO IVCONon 06-16-[address] BRAIN WO IVCON Normal [facility] HEMOGLOBIN (HGB)on 2 Hemoglobin (Bld) [Mass/Vol] 8.9 g/dL Low 13.0-17.0 [facility] Comment on above: Order Comment: Speci men Type: BLOOD SPECIMENOrdering Facility: [facility] Address: [address] [place] [address] Performed By: #### H GB ####[facility] LABORATORYCLIA [id number] [address] STATES OF [facility] Hemoglobin (Bld) [Mass/Vol] 9.6 g/dL Low 13.0-17.0 [facility] Comment on above: Order Comment: Speci men Type: BLOOD SPECIMENOrdering Facility: [facility] Address: [address] [place] [address] Performed By: #### H GB ####[facility] LABORATORYCLIA [id number] [address] [place] Magnesium SerPl-mCncon 06-16 Magnesium [Mass/Vol] 2.7 mg/dL High 1.7-2.3 [facility] Comment on above: Order Comment: Speci men Type: BLOOD SPECIMENOrdering Facility: [facility] Address: [address] [place] [address] Performed By: #### 1 9123-9 ####[facility] LABORATORYCLIA [id number] [place] [address] [place] NURSING PROGon 06-16-2021 NURSING PROG Normal [facility] NUTRITIONon 06-16-2021 NUTRITION Normal [facility] Phosphate SerPl-mCncon 06-16 Phosphate [Mass/Vol] 1.4 mg/dL Low 2.7-4.8 [facility] Comment on above: Order Comment: Speci men Type: BLOOD SPECIMENOrdering Facility: [facility] Address: [address] [place] [address] Performed By: #### 2 777-1 ####[facility] LABORATORYCLIA [id number] [place] [address] [place] STAPH AUREUS PCRon 2 S. aureus and MRSA panel MEGAN+probe (Nose) Normal Negative [facility] Comment on above: Order Comment: Speci men Type: SWAB OF INTERNAL NOSEOrdering Facility: [facility] Address: [address] [place] [address] Result Comment: Nega tive for Staphylococcus aureus by PCR.Negative for MRSA by PCR Performed By: #### S APCR ####[facility] LABORATORYCLIA [id number] [place] [address] [place] Sodium SerPl-sCncon 06-16-19 22 Sodium [Moles/Vol] 150 mmol/L High 136-144 [facility] Comment on above: Order Comment: Speci men Type: BLOOD SPECIMENOrdering Facility: [facility] Address: [address] [place] [address] Performed By: #### 2 951-2 ####[facility] LABORATORYCLIA [id number] [place] [address] [place] Sodium [Moles/Vol] 153 mmol/L High 136-144 [facility] Comment on above: Order Comment: Speci men Type: BLOOD SPECIMENOrdering Facility: [facility] Address: [address] [place] [address] Performed By: #### 2 951-2 ####[facility] LABORATORYCLIA [id number] [place] [address] [place] Sodium [Moles/Vol] 158 mmol/L High 136-144 [facility] Comment on above: Order Comment: Speci men Type: BLOOD SPECIMENOrdering Facility: [facility] Address: [address] [place] [address] Performed By: #### 2 951-2 ####[facility] LABORATORYCLIA [id number] [place] [address] [place] aPTT PPPon 06-16-2021 aPTT Coag (PPP) [Time] 61.8 s High 23.0-32.4 [facility] Comment on above: Order Comment: Speci men Type: BLOOD SPECIMENOrdering Facility: [facility] Address: [address] [place] [address] Performed By: #### 1 4979-9 ####[facility] LABORATORYCLIA [id number] [address] [place] aPTT Coag (PPP) [Time] 57.6 s High 23.0-32.4 [facility] Comment on above: Order Comment: Speci men Type: BLOOD SPECIMENOrdering Facility: [facility] Address: [address] [place] [address] Performed By: #### 1 4979-9 ####[facility] LABORATORYCLIA [id number] [address] [place] ALLIED HEALTHon 06-15-2021 ALLIED HEALTH Normal [facility] ALLIED HEALTH Normal [facility] ALLIED HEALTH Normal [facility] ALLIED HEALTH Normal [facility] ARTERIAL BLOOD GASESon 06-15 Base excess Calc (Bld) [Moles/Vol] 3 mmol/L High 0-2 [facility] Comment on above: Order Comment: Speci men Type: ARTERIAL BLOOD SPECIMENOrdering Facility: [facility] Address: [address] [place] [address] Performed By: #### A LLBG ####[facility] LABORATORYCLIA [id number] [address] [place] Body temperature 99.5 [degF] Normal [facility] Comment on above: Order Comment: Speci men Type: ARTERIAL BLOOD SPECIMENOrdering Facility: [facility] Address: [address] [place] [address] Performed By: #### A LLBG ####[facility] LABORATORYCLIA [id number] [address] [place] CALCIUM IONIZED, PH CORRECTED 1.34 mmol/L High 1.08-1.30 [facility] Comment on above: Order Comment: Speci men Type: ARTERIAL BLOOD SPECIMENOrdering Facility: [facility] Address: [address] [place] [address] Performed By: #### A LLBG ####[facility] LABORATORYCLIA [id number] [place] [address] [place] Calcium.ionized (BldV) [Mass/Vol] 1.29 mmol/L Normal 1.08-1.30 [facility] Comment on above: Order Comment: Speci men Type: ARTERIAL BLOOD SPECIMENOrdering Facility: [facility] Address: [address] [place] [address] Performed By: #### A LLBG ####[facility] LABORATORYCLIA [id number] [address] Carboxyhemoglobin (BldA) [Mass fraction] 1.3 % Normal 0.0-2.0 [facility] Comment on above: Order Comment: Speci men Type: ARTERIAL BLOOD SPECIMENOrdering Facility: [facility] Address: [address] [place] [address] Result Comment: Carb oxyhemoglobin Reference Range for Smokers: 2.0-8.0% Performed By: #### A LLBG ####[facility] LABORATORYCLIA [id number] [address] [place] CO2 (Bld) [Partial pressure] 37 mm Hg Normal 36-46 [facility] Comment on above: Order Comment: Speci men Type: ARTERIAL BLOOD SPECIMENOrdering Facility: [facility] Address: [address] [place] [address] Performed By: #### A LLBG ####[facility] LABORATORYCLIA [id number] [address] [place] CO2 [Moles/Vol] 24.6 mmol/L Normal 22-28 [facility] Comment on above: Order Comment: Speci men Type: ARTERIAL BLOOD SPECIMENOrdering Facility: [facility] Address: [address] [place] [address] Performed By: #### A LLBG ####[facility] LABORATORYCLIA [id number] [address] CO2 adjusted to patient's actual temperature (Bld) [Partial pressure] 38 mmHg Normal 36-46 [facility] Comment on above: Order Comment: Speci men Type: ARTERIAL BLOOD SPECIMENOrdering Facility: [facility] Address: [address] [place] [address] Performed By: #### A LLBG ####[facility] LABORATORYCLIA [id number] [address] [place] FIO2 100 % Normal [facility] Comment on above: Order Comment: Speci men Type: ARTERIAL BLOOD SPECIMENOrdering Facility: [facility] Address: [address] [place] [address] Performed By: #### A LLBG ####[facility] LABORATORYCLIA [id number] [address] [place] Glucose [Mass/Vol] 159 mg/dL High 60-105 [facility] Comment on above: Order Comment: Speci men Type: ARTERIAL BLOOD SPECIMENOrdering Facility: [facility] Address: [address] [place] [address] Performed By: #### A LLBG ####[facility] LABORATORYCLIA [id number] [address] [place] HCO3 (Bld) [Moles/Vol] 27 mmol/L High 22-26 [facility] Comment on above: Order Comment: Speci men Type: ARTERIAL BLOOD SPECIMENOrdering Facility: [facility] Address: [address] [place] [address] Performed By: #### A LLBG ####[facility] LABORATORYCLIA [id number] [address] Hematocrit (Bld) [Volume fraction] 31.0 % Low 39.0-51.0 [facility] Comment on above: Order Comment: Speci men Type: ARTERIAL BLOOD SPECIMENOrdering Facility: [facility] Address: [facility] [address] Performed By: #### A LLBG ####[facility] LABORATORYCLIA [id number] [address] Hemoglobin (Bld) [Mass/Vol] 10.0 g/dL Low 13.0-17.0 [facility] Comment on above: Order Comment: Speci men Type: ARTERIAL BLOOD SPECIMENOrdering Facility: [facility] Address: [address] [place] [address] Performed By: #### A LLBG ####[facility] LABORATORYCLIA [id number] [address] Methemoglobin (Bld) [Mass fraction] % Normal 0.0-1.5 [facility] Comment on above: Order Comment: Speci men Type: ARTERIAL BLOOD SPECIMENOrdering Facility: [facility] Address: [address] [place] [address] Performed By: #### A LLBG ####[facility] LABORATORYCLIA [id number] [address] O2 THERAPY Ventilator Normal [facility] Comment on above: Order Comment: Speci men Type: ARTERIAL BLOOD SPECIMENOrdering Facility: [facility] Address: [address] [place] [address] Performed By: #### A LLBG ####[facility] LABORATORYCLIA [id number] [address] Oxygen (Bld) [Partial pressure] 279 mm Hg High 85-95 [facility] Comment on above: Order Comment: Speci men Type: ARTERIAL BLOOD SPECIMENOrdering Facility: [facility] Address: [address] [place] [address] Performed By: #### A LLBG ####[facility] LABORATORYCLIA [id number] [address] Oxygen adjusted to patient's actual temperature (Bld) [Partial pressure] 281 mmHg High 85-95 [facility] Comment on above: Order Comment: Speci men Type: ARTERIAL BLOOD SPECIMENOrdering Facility: [facility] Address: [address] [place] [address] Performed By: #### A LLBG ####[facility] LABORATORYCLIA [id number] [address] [place] OXYGEN SATURATION, ARTERIAL 100 % High 95-98 [facility] Comment on above: Order Comment: Speci men Type: ARTERIAL BLOOD SPECIMENOrdering Facility: [facility] Address: [address] [place] [address] Performed By: #### A LLBG ####[facility] LABORATORYCLIA [id number] [address] [place] Oxyhemoglobin (BldA) [Mass fraction] 98 % Normal 95-98 [facility] Comment on above: Order Comment: Speci men Type: ARTERIAL BLOOD SPECIMENOrdering Facility: [facility] Address: [address] [place] [address] Performed By: #### A LLBG ####[facility] LABORATORYCLIA [id number] [address] [place] pH (Bld) 7.47 [pH] High 7.35-7.45 [facility] Comment on above: Order Comment: Speci men Type: ARTERIAL BLOOD SPECIMENOrdering Facility: [facility] Address: [address] [place] [address] Performed By: #### A LLBG ####[facility] LABORATORYCLIA [id number] [address] pH adjusted to patient's actual temperature (Bld) 7.46 High 7.35-7.45 [facility] Comment on above: Order Comment: Speci men Type: ARTERIAL BLOOD SPECIMENOrdering Facility: [facility] Address: [address] [place] [address] Performed By: #### A LLBG ####[facility] LABORATORYCLIA [id number] [address] [place] Potassium [Moles/Vol] 3.6 mmol/L Normal 3.5-5.0 [facility] Comment on above: Order Comment: Speci men Type: ARTERIAL BLOOD SPECIMENOrdering Facility: [facility] Address: [address] [place] [address] Performed By: #### A LLBG ####[facility] LABORATORYCLIA [id number] [address] [place] Sodium [Moles/Vol] 162 mmol/L High 136-144 [facility] Comment on above: Order Comment: Speci men Type: ARTERIAL BLOOD SPECIMENOrdering Facility: [facility] Address: [address] [place] [address] Performed By: #### A LLBG ####[facility] LABORATORYCLIA [id number] [address] [place] Base excess Calc (Bld) [Moles/Vol] 4 mmol/L High 0-2 [facility] Comment on above: Order Comment: Speci men Type: ARTERIAL BLOOD SPECIMENOrdering Facility: [facility] Address: [address] [place] [address] Performed By: #### A LLBG ####[facility] LABORATORYCLIA [id number] [address] Body temperature 100.58 [degF] Normal [facility] Comment on above: Order Comment: Speci men Type: ARTERIAL BLOOD SPECIMENOrdering Facility: [facility] Address: [address] [place] [address] Performed By: #### A LLBG ####[facility] LABORATORYCLIA [id number] [address] [place] CALCIUM IONIZED, PH CORRECTED 1.34 mmol/L High 1.08-1.30 [facility] Comment on above: Order Comment: Speci men Type: ARTERIAL BLOOD SPECIMENOrdering Facility: [facility] Address: [address] [place] [address] Performed By: #### A LLBG ####[facility] LABORATORYCLIA [id number] [address] [place] Calcium.ionized (BldV) [Mass/Vol] 1.33 mmol/L High 1.08-1.30 [facility] Comment on above: Order Comment: Speci men Type: ARTERIAL BLOOD SPECIMENOrdering Facility: [facility] Address: [address] [place] [address] Performed By: #### A LLBG ####[facility] LABORATORYCLIA [id number] [address] [place] Carboxyhemoglobin (BldA) [Mass fraction] 1.5 % Normal 0.0-2.0 [facility] Comment on above: Order Comment: Speci men Type: ARTERIAL BLOOD SPECIMENOrdering Facility: [facility] Address: [address] [place] [address] Result Comment: Carb oxyhemoglobin Reference Range for Smokers: 2.0-8.0% Performed By: #### A LLBG ####[facility] LABORATORYCLIA [id number] [address] [place] CO2 (Bld) [Partial pressure] 46 mm Hg Normal 36-46 [facility] Comment on above: Order Comment: Speci men Type: ARTERIAL BLOOD SPECIMENOrdering Facility: [facility] Address: [address] [place] [address] Performed By: #### A LLBG ####[facility] LABORATORYCLIA [id number] [address] [place] CO2 [Moles/Vol] 26.4 mmol/L Normal 22-28 [facility] Comment on above: Order Comment: Speci men Type: ARTERIAL BLOOD SPECIMENOrdering Facility: [facility] Address: [address] [place] [address] Performed By: #### A LLBG ####[facility] LABORATORYCLIA [id number] [address] [place] CO2 adjusted to patient's actual temperature (Bld) [Partial pressure] 48 mmHg High 36-46 [facility] Comment on above: Order Comment: Speci men Type: ARTERIAL BLOOD SPECIMENOrdering Facility: [facility] Address: [address] [place] [address] Performed By: #### A LLBG ####[facility] LABORATORYCLIA [id number] [address] [place] FIO2 100 % Normal [facility] Comment on above: Order Comment: Speci men Type: ARTERIAL BLOOD SPECIMENOrdering Facility: [facility] Address: [address] [address] Performed By: #### A LLBG ####[facility] LABORATORYCLIA [id number] [address] [place] Glucose [Mass/Vol] 132 mg/dL High 60-105 [facility] Comment on above: Order Comment: Speci men Type: ARTERIAL BLOOD SPECIMENOrdering Facility: [facility] [facility] Address: [address] [place] [address] Performed By: #### A LLBG ####[facility] LABORATORYCLIA [id number] [address] [place] HCO3 (Bld) [Moles/Vol] 29 mmol/L High 22-26 [facility] Comment on above: Order Comment: Speci men Type: ARTERIAL BLOOD SPECIMENOrdering Facility: [facility] Address: [address] [place] [address] Performed By: #### A LLBG ####[facility] LABORATORYCLIA [id number] [address] [place] Hematocrit (Bld) [Volume fraction] 32.3 % Low 39.0-51.0 [facility] Comment on above: Order Comment: Speci men Type: ARTERIAL BLOOD SPECIMENOrdering Facility: [facility] Address: [address] [place] [address] Performed By: #### A LLBG ####[facility] LABORATORYCLIA [id number] [address] [place] Hemoglobin (Bld) [Mass/Vol] 10.4 g/dL Low 13.0-17.0 [facility] Comment on above: Order Comment: Speci men Type: ARTERIAL BLOOD SPECIMENOrdering Facility: [facility] Address: [address] [address] Performed By: #### A LLBG ####[facility]ORATORYCLIA [id number] [address] Methemoglobin (Bld) [Mass fraction] % Normal 0.0-1.5 [facility] Comment on above: Order Comment: Speci men Type: ARTERIAL BLOOD SPECIMENOrdering Facility: [facility] Address: [address] [place] [address] Performed By: #### A LLBG ####[facility] LABORATORYCLIA [id number] [address] O2 THERAPY NR=Non-Rebreather Mask Normal [facility] Comment on above: Order Comment: Speci men Type: ARTERIAL BLOOD SPECIMENOrdering Facility: [facility] Address: [address] [place] [address] Performed By: #### A LLBG ####[facility] LABORATORYCLIA [id number] [address] [place] Oxygen (Bld) [Partial pressure] 130 mm Hg High 85-95 [facility] Comment on above: Order Comment: Speci men Type: ARTERIAL BLOOD SPECIMENOrdering Facility: [facility] Address: [address] [place] [address] Performed By: #### A LLBG ####[facility] LABORATORYCLIA [id number] [address] Oxygen adjusted to patient's actual temperature (Bld) [Partial pressure] 136 mmHg High 85-95 [facility] Comment on above: Order Comment: Speci men Type: ARTERIAL BLOOD SPECIMENOrdering Facility: [facility] Address: [address] [place] [address] Performed By: #### A LLBG ####[facility]ORATORYCLIA [id number] [address] [place] OXYGEN SATURATION, ARTERIAL 99 % High 95-98 [facility] Comment on above: Order Comment: Speci men Type: ARTERIAL BLOOD SPECIMENOrdering Facility: [facility] Address: [address] [address] Performed By: #### A LLBG ####[facility] LABORATORYCLIA [id number] [address] Oxyhemoglobin (BldA) [Mass fraction] 97 % Normal 95-98 [facility] Comment on above: Order Comment: Speci men Type: ARTERIAL BLOOD SPECIMENOrdering Facility: [facility] Address: [address] [place] [address] Performed By: #### A LLBG ####[facility] LABORATORYCLIA [id number] [place] [address] [place] pH (Bld) 7.41 [pH] Normal 7.35-7.45 [facility] Comment on above: Order Comment: Speci men Type: ARTERIAL BLOOD SPECIMENOrdering Facility: [facility] Address: [address] [place] [address] Performed By: #### A LLBG ####[facility] LABORATORYCLIA [id number] [address] pH adjusted to patient's actual temperature (Bld) 7.40 Normal 7.35-7.45 [facility] Comment on above: Order Comment: Speci men Type: ARTERIAL BLOOD SPECIMENOrdering Facility: [facility] Address: [address] [place] [address] Performed By: #### A LLBG ####[facility] LABORATORYCLIA [id number] [address] [place] Potassium [Moles/Vol] 3.8 mmol/L Normal 3.5-5.0 [facility] Comment on above: Order Comment: Speci men Type: ARTERIAL BLOOD SPECIMENOrdering Facility: [facility] Address: [address] [place] [address] Performed By: #### A LLBG ####[facility] LABORATORYCLIA [id number] [place] [address] [place] Sodium [Moles/Vol] 166 mmol/L High 136-144 [facility] Comment on above: Order Comment: Speci men Type: ARTERIAL BLOOD SPECIMENOrdering Facility: [facility] Address: [address] [id number] Performed By: #### A LLBG ####[facility] LABORATORYCLIA [id number] [place], [place] [address] [place] [address] STATES OF [facility] Bacteria Bld Culton 06-15-19 Bacteria identified Cx Nom (Bld) CULTURE, BLOOD: No growth 5 days Normal [facility] Comment on above: Performed By: #### 6 00-7 ####[facility] LABORATORYCLIA [id number] [address] OF [facility] Basic metabolic 2000 panelon 06-15-2021 Anion gap [Moles/Vol] 9 mmol/L Normal 9-18 [facility] Comment on above: Order Comment: Speci men Type: BLOOD SPECIMEN Performed By: #### 2 4321-2, 2776-05, ####[facility]ORATORYCLIA [id number] [address] [place] Calcium [Mass/Vol] 9.0 mg/dL Normal 8.5-10.2 [facility] Comment on above: Order Comment: Speci men Type: BLOOD SPECIMEN Performed By: #### 2 4321-2, 2776-05, ####[facility] LABORATORYCLIA [id number] [place] [address] [place] [address] [place] Chloride [Moles/Vol] 125 mmol/L High 97-105 [facility] Comment on above: Order Comment: Speci men Type: BLOOD SPECIMEN Performed By: #### 2 4321-2, 2776-, ####[facility]ORATORYCLIA [id number] [place] [address] [place] CO2 [Moles/Vol] 29 mmol/L Normal 22-30 [facility] Comment on above: Order Comment: Speci men Type: BLOOD SPECIMEN Performed By: #### 2 4321-2, 2776-05, ####[facility]ORATORYCLIA [id number] [place] [address] [place] Creatinine [Mass/Vol] 0.81 mg/dL Normal 0.73-1.22 [facility] Comment on above: Order Comment: Speci men Type: BLOOD SPECIMEN Performed By: #### 2 4321-2, 2777-1, ####[facility] LABORATORYCLIA [id number] [place] [address] [place] GFR/1.73 sq M.predicted MDRD (S/P/Bld) [Vol rate/Area] mL/min/{1.73_m2} Normal [facility] Comment on above: Order Comment: [...] GFR. Performed By: #### 2 4321-2, 2777-, ####[facility] CENTERIA [id number] [place] [address] [place] Glucose [Mass/Vol] 124 mg/dL High 74-99 [facility] Comment on above: Order Comment: Speci men Type: BLOOD SPECIMEN Result Comment: The [place] Diabetes Association (ADA) provides guidance for cutoff [...] Standards of Medical Care in Diabetes 2016, [place] [employer]. Diabetes Care. 2016.39(Suppl 1). Performed By: #### 2 4321-2, 2776-, ####[facility]ORATORYCLIA [id number] [place], [place] [address] [place] [address] [place] [facility] Potassium [Moles/Vol] 3.8 mmol/L Normal 3.7-5.1 [facility] Comment on above: Order Comment: Speci men Type: BLOOD SPECIMEN Performed By: #### 2 4321-2, 2776-05, ####[facility]ORATORYCLIA [id number] [address] Sodium [Moles/Vol] 163 mmol/L High 136-144 [facility] Comment on above: Order Comment: Speci men Type: BLOOD SPECIMEN Performed By: #### 2 4321-2, 2776-05, ####[facility]ORATORYCLIA [id number] [address] STATES [facility] Urea nitrogen [Mass/Vol] 35 mg/dL High 9-24 [facility] Comment on above: Order Comment: Speci men Type: BLOOD SPECIMEN Performed By: #### 2 4321-2, 2776-05, ####[facility] LABORATORYCLIA [id number] [address] STATES [facility] CBC panel Auto (Bld)on 06-15 Erythrocyte distribution width (RBC) [Ratio] 16.3 % High 11.5-15.0 [facility] Comment on above: Order Comment: Speci men Type: BLOOD SPECIMENOrdering Facility: [facility] Address: [address] [place] [address] Performed By: #### 5 8410-2 ####[facility] LABORATORYCLIA [id number] [address] STATES OF [facility] Hematocrit (Bld) [Volume fraction] 30.0 % Low 39.0-51.0 [facility] Comment on above: Order Comment: Speci men Type: BLOOD SPECIMENOrdering Facility: [facility] Address: [address] [place] [address] Performed By: #### 5 8410-2 ####[facility]ORATORYCLIA [id number] [address] STATES OF [facility] Hemoglobin (Bld) [Mass/Vol] 8.9 g/dL Low 13.0-17.0 [facility] Comment on above: Order Comment: Speci men Type: BLOOD SPECIMENOrdering Facility: [facility] Address: [address] [place] [address] Performed By: #### 5 8410-2 ####[facility]ORATORYCLIA [id number] [address] [place] MCH (RBC) [Entitic mass] 28.7 pg Normal 26.0-34.0 [facility] Comment on above: Order Comment: Speci men Type: BLOOD SPECIMENOrdering Facility: [facility] Address: [address] [place] [address] Performed By: #### 5 8410-2 ####[facility] LABORATORYCLIA [id number] [address] MCHC (RBC) [Mass/Vol] 29.7 g/dL Low 30.5-36.0 [facility] Comment on above: Order Comment: Speci men Type: BLOOD SPECIMENOrdering Facility: [facility] Address: [address] [place] [address] Performed By: #### 5 8410-2 ####[facility] LABORATORYCLIA [id number] [address] [place] MCV (RBC) [Entitic vol] 96.8 fL Normal 80.0-100.0 [facility] Comment on above: Order Comment: Speci men Type: BLOOD SPECIMENOrdering Facility: [facility] Address: [address] [place] [address] Performed By: #### 5 8410-2 ####[facility]ORATORYCLIA [id number] [address] [place] Nucleated RBC (Bld) [#/Vol] 10*3/uL Normal <0.01 [facility] Comment on above: Order Comment: Speci men Type: BLOOD SPECIMENOrdering Facility: [facility] Address: [address] [place] [address] Performed By: #### 5 8410-2 ####[facility] LABORATORYCLIA [id number] [address] [place] Platelet mean volume (Bld) [Entitic vol] 12.3 fL Normal 9.0-12.7 [facility] Comment on above: Order Comment: Speci men Type: BLOOD SPECIMENOrdering Facility: [facility] Address: [address] [place] [address] Performed By: #### 5 8410-2 ####[facility]ORATORYCLIA [id number] [address] [place] Platelets (Bld) [#/Vol] 226 10*3/uL Normal 150-400 [facility] Comment on above: Order Comment: Speci men Type: BLOOD SPECIMENOrdering Facility: [facility] Address: [address] [place] [address] Performed By: #### 5 8410-2 ####[facility] LABORATORYCLIA [id number] [address] [place] RBC (Bld) [#/Vol] 3.10 10*6/uL Low 4.20-6.00 [facility] Comment on above: Order Comment: Speci men Type: BLOOD SPECIMENOrdering Facility: [facility] Address: [address] [place] [address] Performed By: #### 5 8410-2 ####[facility]ORATORYCLIA [id number] [address] [place] WBC (Bld) [#/Vol] 10.77 10*3/uL Normal 3.70-11.00 [facility] Comment on above: Order Comment: Speci men Type: BLOOD SPECIMENOrdering Facility: [facility] Address: [address] [place] [address] Performed By: #### 5 8410-2 ####[facility] LABORATORYCLIA [id number] [address] Erythrocyte distribution width (RBC) [Ratio] 16.2 % High 11.5-15.0 [facility] Comment on above: Order Comment: Speci men Type: BLOOD SPECIMENOrdering Facility: [facility] Address: [address] [place] [address] Performed By: #### 5 8410-2 ####[facility] LABORATORYCLIA [id number] [address] Hematocrit (Bld) [Volume fraction] 34.8 % Low 39.0-51.0 [facility] Comment on above: Order Comment: Speci men Type: BLOOD SPECIMENOrdering Facility: [facility] Address: [address] [place] [address] Performed By: #### 5 8410-2 ####[facility] LABORATORYCLIA [id number] [address] Hemoglobin (Bld) [Mass/Vol] 10.0 g/dL Low 13.0-17.0 [facility] Comment on above: Order Comment: Speci men Type: BLOOD SPECIMENOrdering Facility: [facility] Address: [address] [place] [address] Performed By: #### 5 8410-2 ####[facility] LABORATORYCLIA [id number] [address] MCH (RBC) [Entitic mass] 27.5 pg Normal 26.0-34.0 [facility] Comment on above: Order Comment: Speci men Type: BLOOD SPECIMENOrdering Facility: [facility] Address: [address] [place] [address] Performed By: #### 5 8410-2 ####[facility] LABORATORYCLIA [id number] [address] MCHC (RBC) [Mass/Vol] 28.7 g/dL Low 30.5-36.0 [facility] Comment on above: Order Comment: Speci men Type: BLOOD SPECIMENOrdering Facility: [facility] Address: [address] [place] [address] Performed By: #### 5 8410-2 ####[facility] LABORATORYCLIA [id number] [address] [place] MCV (RBC) [Entitic vol] 95.6 fL Normal 80.0-100.0 [facility] Comment on above: Order Comment: Speci men Type: BLOOD SPECIMENOrdering Facility: [facility] Address: [address] [place] [address] Performed By: #### 5 8410-2 ####[facility]ORATORYCLIA [id number] [address] Nucleated RBC (Bld) [#/Vol] 10*3/uL Normal <0.01 [facility] Comment on above: Order Comment: Speci men Type: BLOOD SPECIMENOrdering Facility: [facility] Address: [address] [place] [address] Performed By: #### 5 8410-2 ####[facility] LABORATORYCLIA [id number] [address] [place] Platelet mean volume (Bld) [Entitic vol] 11.9 fL Normal 9.0-12.7 [facility] Comment on above: Order Comment: Speci men Type: BLOOD SPECIMENOrdering Facility: [facility] Address: [address] [place] [address] Performed By: #### 5 8410-2 ####[facility]ORATORYCLIA [id number] [address] Platelets (Bld) [#/Vol] 246 10*3/uL Normal 150-400 [facility] Comment on above: Order Comment: Speci men Type: BLOOD SPECIMENOrdering Facility: [facility] Address: [address] [place] [address] Performed By: #### 5 8410-2 ####[facility]ORATORYCLIA [id number] [address] RBC (Bld) [#/Vol] 3.64 10*6/uL Low 4.20-6.00 [facility] Comment on above: Order Comment: Speci men Type: BLOOD SPECIMENOrdering Facility: [facility] Address: [address] [place] [address] Performed By: #### 5 8410-2 ####[facility] LABORATORYCLIA [id number] [address] WBC (Bld) [#/Vol] 11.45 10*3/uL High 3.70-11.00 [facility] Comment on above: Order Comment: Speci men Type: BLOOD SPECIMENOrdering Facility: [facility] Address: [address] [place] [address] Performed By: #### 5 8410-2 ####[facility]ORATORYCLIA [id number] [address] Erythrocyte distribution width (RBC) [Ratio] 15.9 % High 11.5-15.0 [facility] Comment on above: Order Comment: Speci men Type: BLOOD SPECIMEN Performed By: #### 5 8410-2 ####[facility]ATORYCLIA [id number] [address] Hematocrit (Bld) [Volume fraction] 35.8 % Low 39.0-51.0 [facility] Comment on above: Order Comment: Speci men Type: BLOOD SPECIMEN Performed By: #### 5 8410-2 ####[facility]ATORYCLIA [id number] [address] Hemoglobin (Bld) [Mass/Vol] 10.4 g/dL Low 13.0-17.0 [facility] Comment on above: Order Comment: Speci men Type: BLOOD SPECIMEN Performed By: #### 5 8410-2 ####[facility]ORATORYCLIA [id number] [address] MCH (RBC) [Entitic mass] 28.0 pg Normal 26.0-34.0 [facility] Comment on above: Order Comment: Speci men Type: BLOOD SPECIMEN Performed By: #### 5 8410-2 ####[facility]ORATORYCLIA [id number] [address] MCHC (RBC) [Mass/Vol] 29.1 g/dL Low 30.5-36.0 [facility] Comment on above: Order Comment: Speci men Type: BLOOD SPECIMEN Performed By: #### 5 8410-2 ####[facility]ATORYCLIA [id number] [address] MCV (RBC) [Entitic vol] 96.2 fL Normal 80.0-100.0 [facility] Comment on above: Order Comment: Speci men Type: BLOOD SPECIMEN Performed By: #### 5 8410-2 ####[facility]ATORYCLIA [id number] [address] Nucleated RBC (Bld) [#/Vol] 10*3/uL Normal <0.01 [facility] Comment on above: Order Comment: Speci men Type: BLOOD SPECIMEN Performed By: #### 5 8410-2 ####[facility]ORYCLIA [id number] [address] Platelet mean volume (Bld) [Entitic vol] 11.6 fL Normal 9.0-12.7 [facility] Comment on above: Order Comment: Speci men Type: BLOOD SPECIMEN Performed By: #### 5 8410-2 ####[facility]ATORYCLIA [id number] [address] Platelets (Bld) [#/Vol] 265 10*3/uL Normal 150-400 [facility] Comment on above: Order Comment: Speci men Type: BLOOD SPECIMEN Performed By: #### 5 8410-2 ####[facility] LABORATORYCLIA [id number] [place] [address] [facility] RBC (Bld) [#/Vol] 3.72 10*6/uL Low 4.20-6.00 [facility] Comment on above: Order Comment: Speci men Type: BLOOD SPECIMEN Performed By: #### 5 8410-2 ####[facility]ATORYCLIA [id number] [address] WBC (Bld) [#/Vol] 12.24 10*3/uL High 3.70-11.00 [facility] Comment on above: Order Comment: Speci men Type: BLOOD SPECIMEN Performed By: #### 5 8410-2 ####[facility]ATORYCLIA [id number] [address] CONSULTon 06-15-2021 CONSULT Normal [facility] CONSULT Normal [facility] CONSULT Normal [facility] CT BRAIN WO IVCONon 06-15-19 CT BRAIN WO IVCON Normal [facility] CT CHEST W IVCON PEon 2021 CT CHEST W IVCON PE Invalid Interpretation Code [facility] Chloride Unsp time (U) [Mole s/Vol]on 06-15-2021 Chloride (U) [Moles/Vol] 28 mmol/L Normal 16-250 [facility] Comment on above: Order Comment: Speci men Type: URINE SPECIMENOrdering Facility: [facility] Address: [address] [place] [address] Performed By: #### U TPR, 94191-4, 10524-7, 20106-9 ####[facility]ORATORYCLIA [id number] [address] Comprehensive metabolic 2000 panelon 06-15-2021 Albumin [Mass/Vol] 2.8 g/dL Low 3.9-4.9 [facility] Comment on above: Order Comment: Speci men Type: BLOOD SPECIMENOrdering Facility: [facility] Address: [address] [place] [address] Performed By: #### 2 4323-8 ####[facility] LABORATORYCLIA [id number] [address] [place] ALP [Catalytic activity/Vol] 74 U/L Normal 38-113 [facility] Comment on above: Order Comment: Speci men Type: BLOOD SPECIMENOrdering Facility: [facility] Address: [address] [place] [address] Performed By: #### 2 4323-8 ####[facility] LABORATORYCLIA [id number] [address] [place] ALT With P-5'-P [Catalytic activity/Vol] 50 U/L Normal 10-54 [facility] Comment on above: Order Comment: Speci men Type: BLOOD SPECIMENOrdering Facility: [facility] Address: [address] [place] [address] Performed By: #### 2 4323-8 ####[facility]ATORYCLIA [id number] [address] Anion gap [Moles/Vol] 12 mmol/L Normal 9-18 [facility] Comment on above: Order Comment: Speci men Type: BLOOD SPECIMENOrdering Facility: [facility] Address: [address] [place] [address] Performed By: #### 2 4323-8 ####[facility] LABORATORYCLIA [id number] [address] [place] AST With P-5'-P [Catalytic activity/Vol] 36 U/L Normal 14-40 [facility] Comment on above: Order Comment: Speci men Type: BLOOD SPECIMENOrdering Facility: [facility] Address: [address] [place] [address] Performed By: #### 2 4323-8 ####[facility]ORATORYCLIA [id number] [address] [place] Bilirubin [Mass/Vol] 0.5 mg/dL Normal 0.2-1.3 [facility] Comment on above: Order Comment: Speci men Type: BLOOD SPECIMENOrdering Facility: [facility] Address: [address] [place] [address] Performed By: #### 2 4323-8 ####[facility] LABORATORYCLIA [id number] [place] [address] [place] Calcium [Mass/Vol] 8.8 mg/dL Normal 8.5-10.2 [facility] Comment on above: Order Comment: Speci men Type: BLOOD SPECIMENOrdering Facility: [facility] Address: [address] [place] [address] Performed By: #### 2 4323-8 ####[facility] LABORATORYCLIA [id number] [place] [address] [place] Chloride [Moles/Vol] 126 mmol/L High 97-105 [facility] Comment on above: Order Comment: Speci men Type: BLOOD SPECIMENOrdering Facility: [facility] Address: [address] [place] [address] Performed By: #### 2 4323-8 ####[facility] LABORATORYCLIA [id number] [place] [address] [place] CO2 [Moles/Vol] 24 mmol/L Normal 22-30 [facility] Comment on above: Order Comment: Speci men Type: BLOOD SPECIMENOrdering Facility: [facility] Address: [address] [place] [address] Performed By: #### 2 4323-8 ####[facility] LABORATORYCLIA [id number] [address] [place] Creatinine [Mass/Vol] 0.84 mg/dL Normal 0.73-1.22 [facility] Comment on above: Order Comment: Speci men Type: BLOOD SPECIMENOrdering Facility: [facility] Address: [address] [place] [address] Performed By: #### 2 4323-8 ####[facility] LABORATORYCLIA [id number] [place] [address] [place] GFR/1.73 sq M.predicted MDRD (S/P/Bld) [Vol rate/Area] mL/min/{1.73_m2} Normal [facility] Comment on above: Order Comment: Shira feldman Type: BLOOD SPECIMENOrdering Facility: [facility] Address: [address] [place] [phone] Result Comment: >60e GFR (Estimated GFR) Units [...] By: #### 2 4323-8 ####[facility] LABORATORYCLIA [id number] [place] [address] [place] Glucose [Mass/Vol] 142 mg/dL High 74-99 [facility] Comment on above: Order Comment: Johncara feldman Type: BLOOD SPECIMENOrdering Facility: [facility] Address: [address] [place] [phone] Result Comment: The [place] Diabetes Association (ADA) provides guidance for cutoff [...] Standards of Medical Care in Diabetes 2016, [place] [employer]. Diabetes Care. 2016.39(Suppl 1). Performed By: #### 2 4323-8 ####[facility] LABORATORYCLIA [id number] [place] [id number] [place] Potassium [Moles/Vol] 3.8 mmol/L Normal 3.7-5.1 [facility] Comment on above: Order Comment: Speci men Type: BLOOD SPECIMENOrdering Facility: [facility] Address: [address] [place] [address] Performed By: #### 2 4323-8 ####[facility] LABORATORYCLIA [id number] [place] [address] [place] Protein [Mass/Vol] 6.1 g/dL Low 6.3-8.0 [facility] Comment on above: Order Comment: Speci men Type: BLOOD SPECIMENOrdering Facility: [facility] Address: [address] [place] [address] Performed By: #### 2 4323-8 ####[facility] LABORATORYCLIA [id number] [place] [address] [place] Sodium [Moles/Vol] 162 mmol/L High 136-144 [facility] Comment on above: Order Comment: Speci men Type: BLOOD SPECIMENOrdering Facility: [facility] Address: [address] [place] [address] Performed By: #### 2 4323-8 ####[facility] LABORATORYCLIA [id number] [place] [address] [place] Urea nitrogen [Mass/Vol] 33 mg/dL High 9-24 [facility] Comment on above: Order Comment: Speci men Type: BLOOD SPECIMENOrdering Facility: [facility] Address: [address] [place] [address] Performed By: #### 2 4323-8 ####[facility] LABORATORYCLIA [id number] [place] [address] [place] Creatinine Unsp time (U) [Ma ss/Vol]on 06-15-2021 Creatinine (U) [Mass/Vol] 87.0 mg/dL Normal 46.8-314.5 [facility] Comment on above: Order Comment: Speci men Type: URINE SPECIMENOrdering Facility: [facility] Address: [address] [place] [address] Performed By: #### U TPR, 34940-2, 93731-4, 72778-3 ####[facility] LABORATORYCLIA [id number] [address] [place] HIGH SENSITIVITY TROPONIN To n 06-15-2021 HIGH SENSITIVITY TAMIKO 23 ng/L High <12 [facility] Comment on above: Order Comment: Speci men Type: BLOOD SPECIMENOrdering Facility: [facility] Address: [address] [place] [address] Result Comment: When assessing risk for acute [...] day MACE. Performed By: #### P ROCAL, 39865-5, HSTNT ####[facility]ITALCLIA [id number] [address] OF [facility] Lactate (Bld) [Moles/Vol]on 06-15-2021 Lactate [Moles/Vol] 0.8 mmol/L Normal 0.5-2.2 [facility] Comment on above: Order Comment: Speci men Type: BLOOD SPECIMENOrdering Facility: [facility] Address: [address] [place] [address] Performed By: #### 3 2693-4 ####[facility] LABORATORYCLIA [id number] [address] [place] Magnesium SerPl-mCncon 06-15 Magnesium [Mass/Vol] 3.0 mg/dL High 1.7-2.3 [facility] Comment on above: Order Comment: Speci men Type: BLOOD SPECIMEN Performed By: #### 2 4321-2, 2777-1, 30661-3 ####[facility] LABORATORYCLIA [id number] [place] [address] [place] NT-proBNP SerPl-mCncon 06-15 Natriuretic peptide.B prohormone N-Terminal [Mass/Vol] 265 pg/mL High <125 [facility] Comment on above: Order Comment: Speci men Type: BLOOD SPECIMENOrdering Facility: [facility] Address: [address] [place] [address] Performed By: #### P JULIANNE, 77382-7, HSTNT ####[facility] LABORATORYCLIA [id number] [address] [place] Osmolality Uron 06-15-2021 Osmolality (U) [Osmolality] 606 mosm/kg Normal 50-1,200 [facility] Comment on above: Order Comment: Speci men Type: URINE SPECIMENOrdering Facility: [facility] Address: [address] [place] [address] Performed By: #### 2 695-5 ####[facility]'S CENTERIA [id number] [address] [place] PROCALCITONIN (LAB)on 2021 Procalcitonin [Mass/Vol] 0.21 ng/mL High <0.09 [facility] Comment on above: Order Comment: Speci men Type: BLOOD SPECIMENOrdering Facility: [facility] Address: [address] [place] [address] Result Comment: For a guided interpretation of test results, please visit the Change in Procalcitonin Calculator, [email or web address]. Performed By: #### P JULIANNE, 2951-2 ####[facility] LABORATORYCLIA [id number] [address] STATES [facility] Procalcitonin [Mass/Vol] 0.17 ng/mL High <0.09 [facility] Comment on above: Order Comment: Speci men Type: BLOOD SPECIMENOrdering Facility: [facility] Address: [address] [place] [address] Result Comment: For a guided interpretation of test results, please visit the Change in Procalcitonin Calculator, [email or web address]. Performed By: #### P JULIANNE, 93614-4, HSTNT ####[facility]ITALCLIA [id number] [place] [id number] [place] PROTEIN RANDOM URon 06-15-19 22 Protein (U) [Mass/Vol] 175 mg/dL High 0-20 [facility] Comment on above: Order Comment: Speci men Type: URINE SPECIMENOrdering Facility: [facility] Address: [address] [place] [address] Performed By: #### U TPR, 90851-5, 48531-0, 58870-9 ####[facility] LABORATORYCLIA [id number] [place] [id number] [place] PT panel Coag (PPP)on 2021 INR Coag (PPP) [Relative time] 1.1 {INR} Normal <1.4 [facility] Comment on above: Order Comment: Speci men Type: BLOOD SPECIMENOrdering Facility: [facility] Address: [address] [place] [address] Result Comment: Yris min K Antagonist (VKA) Therapeutic Range: INR 2 to 3 (Target INR of 2.5)Note: For patients treated with VKA drugs, such as warfarin, the [place] [employer] 2012 Guideline recommends [...] al. Chest 2012, 141:7S-47SNishimura RA, et al. [employer] 2017, 70: 252-289 Performed By: #### 3 4528-0, 79494-9 ####[facility] LABORATORYCLIA [id number] [address] [place] PT Coag (PPP) [Time] 11.4 s Normal <13.1 [facility] Comment on above: Order Comment: Speci men Type: BLOOD SPECIMENOrdering Facility: [facility] Address: [address] [place] [address] Performed By: #### 3 4528-0, 70758-0 ####[facility] LABORATORYCLIA [id number] [place] [address] [place] Phosphate SerPl-mCncon 06-15 Phosphate [Mass/Vol] 2.6 mg/dL Low 2.7-4.8 [facility] Comment on above: Order Comment: Speci men Type: BLOOD SPECIMEN Performed By: #### 2 4321-2, 2777-1, 73189-4 ####[facility] LABORATORYCLIA [id number] [place] [address] [place] Sodium ?Tm Ur-sCncon 022 Sodium Unsp time (U) [Moles/Vol] 34 mmol/L Normal 14-216 [facility] Comment on above: Order Comment: Speci men Type: URINE SPECIMENOrdering Facility: [facility] Address: [address] [place] [address] Performed By: #### U TPR, 93225-4, 38612-0, 87105-2 ####[facility] LABORATORYCLIA [id number] [place] [address] [place] Sodium SerPl-sCncon 06-15-19 22 Sodium [Moles/Vol] 159 mmol/L High 136-144 [facility] Comment on above: Order Comment: Speci men Type: BLOOD SPECIMENOrdering Facility: [facility] Address: [address] [place] [address] Performed By: #### P JULIANNE, 2951-2 ####[facility] LABORATORYCLIA [id number] [place] [address] [place] THERAPY NTon 06-15-2021 THERAPY NT Normal [facility] Urinalysis complete panel (U )on 06-15-2021 Bacteria LM.HPF (Urine sed) [#/Area] None Seen Normal None Seen [facility] Comment on above: Order Comment: Speci men Type: URINE SPECIMENOrdering Facility: [facility] Address: [address] [place] [address] Performed By: #### 2 4356-8 ####[facility] LABORATORYCLIA [id number] [address] STATES OF [facility] Bilirubin Ql (U) Negative Normal Negative [facility] Comment on above: Order Comment: Speci men Type: URINE SPECIMENOrdering Facility: [facility] Address: [address] [place] [address] Performed By: #### 2 4356-8 ####[facility] LABORATORYCLIA [id number] [address] Clarity (Unsp spec) Cloudy Abnormal Clear [facility] Comment on above: Order Comment: Speci men Type: URINE SPECIMENOrdering Facility: [facility] Address: [address] [place] [address] Performed By: #### 2 4356-8 ####[facility] LABORATORYCLIA [id number] [address] Color (U) Yellow Normal Yellow [facility] Comment on above: Order Comment: Speci men Type: URINE SPECIMENOrdering Facility: [facility] Address: [address] [place] [address] Performed By: #### 2 4356-8 ####[facility] LABORATORYCLIA [id number] [address] Epithelial cells LM.HPF (Urine sed) [#/Area] 7.1 /[HPF] Normal [facility] Comment on above: Order Comment: Speci men Type: URINE SPECIMENOrdering Facility: [facility] Address: [address] [place] [address] Performed By: #### 2 4356-8 ####[facility] LABORATORYCLIA [id number] [address] [place] Glucose Test strip (U) [Mass/Vol] Negative Normal Negative [facility] Comment on above: Order Comment: Speci men Type: URINE SPECIMENOrdering Facility: [facility] Address: [address] [place] [address] Performed By: #### 2 4356-8 ####[facility]ORATORYCLIA [id number] [address] Granular casts (Urine sed) [#/Area] /[LPF] Abnormal 0 /LPF [facility] Comment on above: Order Comment: Speci men Type: URINE SPECIMENOrdering Facility: [facility] Address: [address] [place] [address] Performed By: #### 2 4356-8 ####[facility]ORATORYCLIA [id number] [address] Hemoglobin Ql (U) Moderate Abnormal Negative [facility] Comment on above: Order Comment: Speci men Type: URINE SPECIMENOrdering Facility: [facility] Address: [address] [place] [address] Performed By: #### 2 4356-8 ####[facility] LABORATORYCLIA [id number] [address] Hyaline casts (Urine sed) [#/Area] /[LPF] Abnormal 0 /LPF [facility] Comment on above: Order Comment: Speci men Type: URINE SPECIMENOrdering Facility: [facility] Address: [address] [place] [address] Performed By: #### 2 4356-8 ####[facility] LABORATORYCLIA [id number] [address] Ketones Ql (U) Negative Normal Negative [facility] Comment on above: Order Comment: Speci men Type: URINE SPECIMENOrdering Facility: [facility] Address: [address] [place] [address] Performed By: #### 2 4356-8 ####[facility]ORATORYCLIA [id number] [address] Leukocyte esterase Test strip Ql (U) Negative Normal Negative [facility] Comment on above: Order Comment: Speci men Type: URINE SPECIMENOrdering Facility: [facility] Address: [address] [place] [address] Performed By: #### 2 4356-8 ####[facility] LABORATORYCLIA [id number] [address] [place] [facility] Nitrite Ql (U) Negative Normal Negative [facility] Comment on above: Order Comment: Speci men Type: URINE SPECIMENOrdering Facility: [facility] Address: [address] [place] [address] Performed By: #### 2 4356-8 ####[facility] LABORATORYCLIA [id number] [address] [place] pH (U) 6.0 [pH] Normal 5.0-8.0 [facility] Comment on above: Order Comment: Speci men Type: URINE SPECIMENOrdering Facility: [facility] Address: [address] [place] [address] Performed By: #### 2 4356-8 ####[facility] LABORATORYCLIA [id number] [address] [place] [facility] Protein (U) [Mass/Vol] 100 mg/dL Abnormal Negative [facility] Comment on above: Order Comment: Speci men Type: URINE SPECIMENOrdering Facility: [facility] Address: [address] [place] [address] Performed By: #### 2 4356-8 ####[facility] LABORATORYCLIA [id number] [address] [place] RBC LM.HPF (Urine sed) [#/Area] 0-3 /HPF Normal 0-3 /HPF [facility] Comment on above: Order Comment: Speci men Type: URINE SPECIMENOrdering Facility: [facility] Address: [address] [place] [address] Performed By: #### 2 4356-8 ####[facility] LABORATORYCLIA [id number] [address] Specific gravity (U) [Rel density] 1.024 Normal 1.005-1.030 [facility] Comment on above: Order Comment: Speci men Type: URINE SPECIMENOrdering Facility: [facility] Address: [address] [place] [address] Performed By: #### 2 4356-8 ####[facility] LABORATORYCLIA [id number] [address] OF [facility] Urobilinogen Ql (U) 0.2 EU/dL Normal 0.2-1.0 EU/dL [facility] Comment on above: Order Comment: Speci men Type: URINE SPECIMENOrdering Facility: [facility] Address: [address] [place] [address] Performed By: #### 2 4356-8 ####[facility]'S CENTERIA [id number] [address] WBC LM.HPF (Urine sed) [#/Area] 0-5 /HPF Normal 0-5 /HPF [facility] Comment on above: Order Comment: Speci men Type: URINE SPECIMENOrdering Facility: [facility] Address: [address] [place] [address] Performed By: #### 2 4356-8 ####[facility] LABORATORYCLIA [id number] [address] [place] XR CHEST 1V FRONTALon 2021 XR CHEST 1V FRONTAL Normal [facility] XR CHEST 1V FRONTAL PORTon 0 06-15-2021 XR CHEST 1V FRONTAL PORT Normal [facility] XR CHEST 1V FRONTAL PORT Normal [facility] aPTT PPPon 06-15-2021 aPTT Coag (PPP) [Time] 30.9 s Normal 23.0-32.4 [facility] Comment on above: Order Comment: Speci men Type: BLOOD SPECIMENOrdering Facility: [facility] Address: [address] [place] [address] Performed By: #### 3 4528-0, 19122-8 ####[facility]ORATORYCLIA [id number] [place] [address] [place] Basic metabolic 2000 panelon 06-14-2021 Anion gap [Moles/Vol] 8 mmol/L Low 9-18 [facility] Comment on above: Order Comment: Speci men Type: BLOOD SPECIMEN Performed By: #### 2 4321-2, 2776-, ####[facility]ORATORYCLIA [id number] [place], [place] [address] [place] [address] [place] [facility] Calcium [Mass/Vol] 8.9 mg/dL Normal 8.5-10.2 [facility] Comment on above: Order Comment: Speci men Type: BLOOD SPECIMEN Performed By: #### 2 4321-2, 2776-05, ####[facility]ORATORYCLIA [id number] [place], [place] [address] [place] [address] [place] Chloride [Moles/Vol] 121 mmol/L High 97-105 [facility] Comment on above: Order Comment: Speci men Type: BLOOD SPECIMEN Performed By: #### 2 4321-2, 2776-05, ####[facility]ORATORYCLIA [id number] [address] STATES OF [facility] CO2 [Moles/Vol] 30 mmol/L Normal 22-30 [facility] Comment on above: Order Comment: Speci men Type: BLOOD SPECIMEN Performed By: #### 2 4321-2, 2776-05, ####[facility]ORATORYCLIA [id number] [place] [address] [place] Creatinine [Mass/Vol] 0.78 mg/dL Normal 0.73-1.22 [facility] Comment on above: Order Comment: Speci men Type: BLOOD SPECIMEN Performed By: #### 2 4321-2, 2776-, ####[facility]ORATORYCLIA [id number] [place] [address] [place] GFR/1.73 sq M.predicted MDRD (S/P/Bld) [Vol rate/Area] mL/min/{1.73_m2} Normal [facility] Comment on above: Order Comment: [...] #### 2 4321-2, 2777-, ####[facility] LABORATORYCLIA [id number] [place] [address] [place] Glucose [Mass/Vol] 132 mg/dL High 74-99 [facility] Comment on above: Order Comment: Speci men Type: BLOOD SPECIMEN Result Comment: The [place] Diabetes Association (ADA) provides guidance for cutoff [...] Standards of Medical Care in Diabetes 2016, [place] [employer]. Diabetes Care. 2016.39(Suppl 1). Performed By: #### 2 4321-2, 2777-, 91598-0 ####[facility] LABORATORYCLIA [id number] [place] [id number] [place] Potassium [Moles/Vol] 3.7 mmol/L Normal 3.7-5.1 [facility] Comment on above: Order Comment: Speci men Type: BLOOD SPECIMEN Performed By: #### 2 4321-2, 2776-05, ####[facility]ORATORYCLIA [id number] [place], [place] [address] [place] [address] Sodium [Moles/Vol] 159 mmol/L High 136-144 [facility] Comment on above: Order Comment: Speci men Type: BLOOD SPECIMEN Performed By: #### 2 4321-2, 2776-05, ####[facility]ORATORYCLIA [id number] [place], [place] [address] [place] [address] Urea nitrogen [Mass/Vol] 35 mg/dL High 9-24 [facility] Comment on above: Order Comment: Speci men Type: BLOOD SPECIMEN Performed By: #### 2 4321-2, 2776-05, ####[facility] LABORATORYCLIA [id number] [address] CASE MANAGEMon 06-14-2021 CASE MANAGEM Normal [facility] CBC panel Auto (Bld)on 06-14 Erythrocyte distribution width (RBC) [Ratio] 16.2 % High 11.5-15.0 [facility] Comment on above: Order Comment: Speci men Type: BLOOD SPECIMEN Performed By: #### 5 8410-2 ####[facility] LABORATORYCLIA [id number] [address] Hematocrit (Bld) [Volume fraction] 35.2 % Low 39.0-51.0 [facility] Comment on above: Order Comment: Speci men Type: BLOOD SPECIMEN Performed By: #### 5 8410-2 ####[facility] LABORATORYCLIA [id number] [address] STATES OF [facility] Hemoglobin (Bld) [Mass/Vol] 10.1 g/dL Low 13.0-17.0 [facility] Comment on above: Order Comment: Speci men Type: BLOOD SPECIMEN Performed By: #### 5 8410-2 ####[facility] LABORATORYCLIA [id number] [address] [place] [facility] MCH (RBC) [Entitic mass] 27.2 pg Normal 26.0-34.0 [facility] Comment on above: Order Comment: Speci men Type: BLOOD SPECIMEN Performed By: #### 5 8410-2 ####[facility] LABORATORYCLIA [id number] [address] MCHC (RBC) [Mass/Vol] 28.7 g/dL Low 30.5-36.0 [facility] Comment on above: Order Comment: Speci men Type: BLOOD SPECIMEN Performed By: #### 5 8410-2 ####[facility] LABORATORYCLIA [id number] [address] MCV (RBC) [Entitic vol] 94.6 fL Normal 80.0-100.0 [facility] Comment on above: Order Comment: Speci men Type: BLOOD SPECIMEN Performed By: #### 5 8410-2 ####[facility] LABORATORYCLIA [id number] [address] Nucleated RBC (Bld) [#/Vol] 10*3/uL Normal <0.01 [facility] Comment on above: Order Comment: Speci men Type: BLOOD SPECIMEN Performed By: #### 5 8410-2 ####[facility] LABORATORYCLIA [id number] [address] Platelet mean volume (Bld) [Entitic vol] 11.0 fL Normal 9.0-12.7 [facility] Comment on above: Order Comment: Speci men Type: BLOOD SPECIMEN Performed By: #### 5 8410-2 ####[facility] LABORATORYCLIA [id number] [address] Platelets (Bld) [#/Vol] 287 10*3/uL Normal 150-400 [facility] Comment on above: Order Comment: Speci men Type: BLOOD SPECIMEN Performed By: #### 5 8410-2 ####[facility] LABORATORYCLIA [id number] [address] RBC (Bld) [#/Vol] 3.72 10*6/uL Low 4.20-6.00 [facility] Comment on above: Order Comment: Speci men Type: BLOOD SPECIMEN Performed By: #### 5 8410-2 ####[facility] LABORATORYCLIA [id number] [place], [place] [id number] [place] [address] WBC (Bld) [#/Vol] 12.23 10*3/uL High 3.70-11.00 [facility] Comment on above: Order Comment: Speci men Type: BLOOD SPECIMEN Performed By: #### 5 8410-2 ####[facility] LABORATORYCLIA [id number] [address] Comprehensive metabolic 2000 panelon 06-14-2021 Albumin [Mass/Vol] 3.1 g/dL Low 3.9-4.9 [facility] Comment on above: Order Comment: Speci men Type: BLOOD SPECIMEN Performed By: #### 2 4323-8, HSTNT, 2776-05, ####[facility] LABORATORYCLIA [id number] [place], [place] [id number] [place] [address] ALP [Catalytic activity/Vol] 72 U/L Normal 38-113 [facility] Comment on above: Order Comment: Speci men Type: BLOOD SPECIMEN Performed By: #### 2 4323-8, HSTNT, 2776-, ####[facility] LABORATORYCLIA [id number] [place], [place] [id number] [place] [address] ALT With P-5'-P [Catalytic activity/Vol] 57 U/L High 10-54 [place] [facility] Comment on above: Order Comment: Speci men Type: BLOOD SPECIMEN Performed By: #### 2 4323-8, HSTNT, 2776-05, ####[facility]ORATORYCLIA [id number] [place], [place] [address] [place] [address] Anion gap [Moles/Vol] 9 mmol/L Normal 9-18 [facility] Comment on above: Order Comment: Speci men Type: BLOOD SPECIMEN Performed By: #### 2 4323-8, HSTNT, 2776-05, ####[facility]ORYCLIA [id number] [address] AST With P-5'-P [Catalytic activity/Vol] 33 U/L Normal 14-40 [facility] Comment on above: Order Comment: Speci men Type: BLOOD SPECIMEN Performed By: #### 2 4323-8, HSTNT, 2776-05, ####[facility]ORYCLIA [id number] [address] OF [facility] Bilirubin [Mass/Vol] 0.5 mg/dL Normal 0.2-1.3 [facility] Comment on above: Order Comment: Speci men Type: BLOOD SPECIMEN Performed By: #### 2 4323-8, HSTNT, 2776-05, ####[facility]ATORYCLIA [id number] [address] STATES [facility] Calcium [Mass/Vol] 8.8 mg/dL Normal 8.5-10.2 [facility] Comment on above: Order Comment: Speci men Type: BLOOD SPECIMEN Performed By: #### 2 4323-8, HSTNT, 2776-05, ####[facility]ATORYCLIA [id number] [address] STATES OF [facility] Chloride [Moles/Vol] 124 mmol/L High 97-105 [facility] Comment on above: Order Comment: Speci men Type: BLOOD SPECIMEN Performed By: #### 2 4323-8, HSTNT, 2776-05, ####[facility]ORYCLIA [id number] [address] STATES OF [facility] CO2 [Moles/Vol] 29 mmol/L Normal 22-30 [facility] Comment on above: Order Comment: Speci men Type: BLOOD SPECIMEN Performed By: #### 2 4323-8, HSTNT, 2776-05, ####[facility]ORATORYCLIA [id number] [place] [address] [place] Creatinine [Mass/Vol] 0.73 mg/dL Normal 0.73-1.22 [facility] Comment on above: Order Comment: Speci men Type: BLOOD SPECIMEN Performed By: #### 2 4323-8, HSTNT, 2776-05, ####[facility] LABORATORYCLIA [id number] [place] [id number] [place] GFR/1.73 sq M.predicted MDRD (S/P/Bld) [Vol rate/Area] mL/min/{1.73_m2} Normal [facility] Comment on above: Order Comment: [...] 2 4323-8, HSTNT, 2776-05, ####[facility] LABORATORYCLIA [id number] [place] [id number] [place] Glucose [Mass/Vol] 137 mg/dL High 74-99 [facility] Comment on above: Order Comment: Speci [facility] Type: BLOOD SPECIMEN Result Comment: The [place] Diabetes Association (ADA) provides guidance for cutoff [...] Standards of Medical Care in Diabetes 2016, [place] [employer]. Diabetes Care. 2016.39(Suppl 1). Performed By: #### 2 4323-8, HSTNT, 2776-05, ####[facility]ORATORYCLIA [id number] [address] STATES OF [facility] Potassium [Moles/Vol] 3.6 mmol/L Low 3.7-5.1 [facility] Comment on above: Order Comment: Speci men Type: BLOOD SPECIMEN Performed By: #### 2 4323-8, HSTNT, 2776-05, ####[facility]ORATORYCLIA [id number] [address] STATES OF [facility] Protein [Mass/Vol] 5.9 g/dL Low 6.3-8.0 [facility] Comment on above: Order Comment: Speci men Type: BLOOD SPECIMEN Performed By: #### 2 4323-8, HSTNT, 2776-05, ####[facility]ORATORYCLIA [id number] [address] Sodium [Moles/Vol] 162 mmol/L High 136-144 [facility] Comment on above: Order Comment: Speci men Type: BLOOD SPECIMEN Performed By: #### 2 4323-8, HSTNT, 2776-05, ####[facility]ATORYCLIA [id number] [address] [place] [facility] Urea nitrogen [Mass/Vol] 33 mg/dL High 9-24 [facility] Comment on above: Order Comment: Speci men Type: BLOOD SPECIMEN Performed By: #### 2 4323-8, HSTNT, 2776-05, ####[facility]ORATORYCLIA [id number] [address] [place] HIGH SENSITIVITY TROPONIN [...] By: #### H STNT ####[facility] LABORATORYCLIA [id number] [address] HIGH SENSITIVITY TAMIKO 22 ng/L High [...] 2 4323-8, HSTNT, 2776-05, ####[facility]ATORYCLIA [id number] [address] Magnesium SerPl-mCncon 06-14 Magnesium [Mass/Vol] 2.9 mg/dL High 1.7-2.3 [facility] Comment on above: Order Comment: Speci men Type: BLOOD SPECIMEN Performed By: #### 2 4323-8, HSTNT, 2776-05, ####[facility]ATORYCLIA [id number] [address] [place] [facility] Magnesium [Mass/Vol] 3.0 mg/dL High 1.7-2.3 [facility] Comment on above: Order Comment: Speci men Type: BLOOD SPECIMEN Performed By: #### 2 4321-2, 2776-05, ####[facility]ATORYCLIA [id number] [address] NURSING PROGon 06-14-2021 NURSING PROG Normal [facility] NUTRITIONon 06-14-2021 NUTRITION Normal [facility] Phosphate SerPl-mCncon 06-14 Phosphate [Mass/Vol] 2.4 mg/dL Low 2.7-4.8 [facility] Comment on above: Order Comment: Speci men Type: BLOOD SPECIMEN Performed By: #### 2 4323-8, HSTNT, 2776-05, ####[facility]ORATORYCLIA [id number] [place] [address] [place] [facility] Phosphate [Mass/Vol] 3.2 mg/dL Normal 2.7-4.8 [facility] Comment on above: Order Comment: Speci men Type: BLOOD SPECIMEN Performed By: #### 2 4321-2, 2776-05, ####[facility]ORATORYCLIA [id number] [place], [place] [address] [place] [address] [place] THERAPY NTon 06-14-2021 THERAPY NT Normal [facility] THERAPY NT Normal [facility] THERAPY NT Normal [facility] US DVT LOWER BILon US DVT LOWER RAINER Normal [facility] ALLIED HEALTHon 06-13-2021 ALLIED HEALTH Normal [facility] Basic metabolic 2000 panelon 06-13-2021 Anion gap [Moles/Vol] 7 mmol/L Low 9-18 [facility] Comment on above: Order Comment: Speci men Type: BLOOD SPECIMEN Performed By: #### 2 4321-2, , 2776-05 ####[facility]ORATORYCLIA [id number] [place] [address] [place] Calcium [Mass/Vol] 8.8 mg/dL Normal 8.5-10.2 [facility] Comment on above: Order Comment: Speci men Type: BLOOD SPECIMEN Performed By: #### 2 4321-2, , 2776-05 ####[facility]ORATORYCLIA [id number] [place] [address] [place] Chloride [Moles/Vol] 120 mmol/L High 97-105 [facility] Comment on above: Order Comment: Speci men Type: BLOOD SPECIMEN Performed By: #### 2 4321-2, , 2776-05 ####[facility]ORATORYCLIA [id number] [address] [place] CO2 [Moles/Vol] 28 mmol/L Normal 22-30 [facility] Comment on above: Order Comment: Speci men Type: BLOOD SPECIMEN Performed By: #### 2 1-2, , 2776-05 ####[facility]ORATORYCLIA [id number] [address] STATES OF [facility] Creatinine [Mass/Vol] 0.78 mg/dL Normal 0.73-1.22 [facility] Comment on above: Order Comment: Speci men Type: BLOOD SPECIMEN Performed By: #### 2 1-2, , 2776-05 ####[facility]ATORYCLIA [id number] [address] [place] GFR/1.73 sq M.predicted MDRD (S/P/Bld) [Vol rate/Area] mL/min/{1.73_m2} Normal [facility] Comment on above: Order Comment: [...] 2 4321-2, , 2776-05 ####[facility]ORATORYCLIA [id number] [address] [place] Glucose [Mass/Vol] 126 mg/dL High 74-99 [facility] Comment on above: Order Comment: Speci men Type: BLOOD SPECIMEN Result Comment: The [place] Diabetes Association (ADA) provides guidance for cutoff [...] Standards of Medical Care in Diabetes 2016, [place] [employer]. Diabetes Care. 2016.39(Suppl 1). Performed By: #### 2 1-2, , 2776-05 ####[facility]ORATORYCLIA [id number] [place] [address] [place] Potassium [Moles/Vol] 3.6 mmol/L Low 3.7-5.1 [facility] Comment on above: Order Comment: Speci men Type: BLOOD SPECIMEN Performed By: #### 2 4320-2, , 2776-05 ####[facility]ORATORYCLIA [id number] [place] [address] [place] Sodium [Moles/Vol] 155 mmol/L High 136-144 [facility] Comment on above: Order Comment: Speci men Type: BLOOD SPECIMEN Performed By: #### 2 1-2, , 2776-05 ####[facility]ATORYCLIA [id number] [place] [address] [place] Urea nitrogen [Mass/Vol] 36 mg/dL High 9-24 [facility] Comment on above: Order Comment: Speci men Type: BLOOD SPECIMEN Performed By: #### 2 1-2, , 2776-05 ####[facility]ATORYCLIA [id number] [place] [address] [place] Anion gap [Moles/Vol] 6 mmol/L Low 9-18 [facility] Comment on above: Order Comment: Speci men Type: BLOOD SPECIMEN Performed By: #### 2 4321-2, 2776-05, ####[facility]ATORYCLIA [id number] [address] STATES OF [facility] Calcium [Mass/Vol] 6.5 mg/dL Low 8.5-10.2 [facility] Comment on above: Order Comment: Speci men Type: BLOOD SPECIMEN Performed By: #### 2 4321-2, 2776-05, ####[facility]ATORYCLIA [id number] [address] STATES OF [facility] Chloride [Moles/Vol] 124 mmol/L High 97-105 [facility] Comment on above: Order Comment: Speci men Type: BLOOD SPECIMEN Performed By: #### 2 4321-2, 2776-05, ####[facility]ATORYCLIA [id number] [address] [place] CO2 [Moles/Vol] 24 mmol/L Normal 22-30 [facility] Comment on above: Order Comment: Speci men Type: BLOOD SPECIMEN Performed By: #### 2 4321-2, 2776-05, ####[facility]ORYCLIA [id number] [address] [place] Creatinine [Mass/Vol] 0.61 mg/dL Low 0.73-1.22 [facility] Comment on above: Order Comment: Speci men Type: BLOOD SPECIMEN Performed By: #### 2 4321-2, 2776-05, ####[facility]ATORYCLIA [id number] [place] [address] [place] GFR/1.73 sq M.predicted MDRD (S/P/Bld) [Vol rate/Area] mL/min/{1.73_m2} Normal [facility] Comment on above: Order Comment: [...] GFR. Performed By: #### 2 4321-2, 2776-05, ####[facility] [id number] [place] [address] [place] Glucose [Mass/Vol] 100 mg/dL High 74-99 [facility] Comment on above: Order Comment: Speci men Type: BLOOD SPECIMEN Result Comment: The [place] Diabetes Association (ADA) provides guidance for cutoff [...] Standards of Medical Care in Diabetes 2016, [place] [employer]. Diabetes Care. 2016.39(Suppl 1). Performed By: #### 2 4321-2, 2776-05, ####[facility]ORATORYCLIA [id number] [place] [address] [place] Potassium [Moles/Vol] 2.7 mmol/L Low 3.7-5.1 [facility] Comment on above: Order Comment: Speci men Type: BLOOD SPECIMEN Performed By: #### 2 4321-2, 27711-04, ####[facility]ATORYCLIA [id number] [place] [address] [place] Sodium [Moles/Vol] 154 mmol/L High 136-144 [facility] Comment on above: Order Comment: Speci men Type: BLOOD SPECIMEN Performed By: #### 2 4321-2, 7-1, ####[facility]ATORYCLIA [id number] [place], [place] [address] [place] [address] Urea nitrogen [Mass/Vol] 29 mg/dL High 9-24 [facility] Comment on above: Order Comment: Speci men Type: BLOOD SPECIMEN Performed By: #### 2 4321-2, 2776-, ####[facility]ORATORYCLIA [id number] [address] CASE MANAGEMon 06-13-2021 CASE MANAGEM Normal [facility] CBC panel Auto (Bld)on 06-13 Erythrocyte distribution width (RBC) [Ratio] 15.9 % High 11.5-15.0 [facility] Comment on above: Order Comment: Speci men Type: BLOOD SPECIMEN Performed By: #### 5 8410-2 ####[facility]ORATORYCLIA [id number] [address] Hematocrit (Bld) [Volume fraction] 34.3 % Low 39.0-51.0 [facility] Comment on above: Order Comment: Speci men Type: BLOOD SPECIMEN Performed By: #### 5 8410-2 ####[facility]ATORYCLIA [id number] [address] Hemoglobin (Bld) [Mass/Vol] 9.9 g/dL Low 13.0-17.0 [facility] Comment on above: Order Comment: Speci men Type: BLOOD SPECIMEN Performed By: #### 5 8410-2 ####[facility]ATORYCLIA [id number] [address] MCH (RBC) [Entitic mass] 27.3 pg Normal 26.0-34.0 [facility] Comment on above: Order Comment: Speci men Type: BLOOD SPECIMEN Performed By: #### 5 8410-2 ####[facility]ATORYCLIA [id number] [address] MCHC (RBC) [Mass/Vol] 28.9 g/dL Low 30.5-36.0 [facility] Comment on above: Order Comment: Speci men Type: BLOOD SPECIMEN Performed By: #### 5 8410-2 ####[facility]ATORYCLIA [id number] [address] MCV (RBC) [Entitic vol] 94.5 fL Normal 80.0-100.0 [facility] Comment on above: Order Comment: Speci men Type: BLOOD SPECIMEN Performed By: #### 5 8410-2 ####[facility]ATORYCLIA [id number] [address] Nucleated RBC (Bld) [#/Vol] 10*3/uL Normal <0.01 [facility] Comment on above: Order Comment: Speci men Type: BLOOD SPECIMEN Performed By: #### 5 8410-2 ####[facility]ORYCLIA [id number] [address] Platelet mean volume (Bld) [Entitic vol] 11.3 fL Normal 9.0-12.7 [facility] Comment on above: Order Comment: Speci men Type: BLOOD SPECIMEN Performed By: #### 5 8410-2 ####[facility]ORYCLIA [id number] [address] Platelets (Bld) [#/Vol] 269 10*3/uL Normal 150-400 [facility] Comment on above: Order Comment: Speci men Type: BLOOD SPECIMEN Performed By: #### 5 8410-2 ####[facility]ORYCLIA [id number] [address] RBC (Bld) [#/Vol] 3.63 10*6/uL Low 4.20-6.00 [facility] Comment on above: Order Comment: Speci men Type: BLOOD SPECIMEN Performed By: #### 5 8410-2 ####[facility]ORYCLIA [id number] [address] WBC (Bld) [#/Vol] 12.77 10*3/uL High 3.70-11.00 [facility] Comment on above: Order Comment: Speci men Type: BLOOD SPECIMEN Performed By: #### 5 8410-2 ####[facility]ATORYCLIA [id number] [address] Gas and Carbon monoxide pane l (BldV)on 06-13-2021 Base excess Calc (BldV) [Moles/Vol] 5.7 mmol/L High 0-2 [facility] Comment on above: Order Comment: Speci men Type: VENOUS BLOOD SPECIMEN Performed By: #### 2 4344-4 ####[facility]ATORYCLIA [id number] [address] Body temperature 99.5 [degF] Normal [facility] Comment on above: Order Comment: Speci men Type: VENOUS BLOOD SPECIMEN Performed By: #### 2 4344-4 ####[facility]ORYCLIA [id number] [address] CALCIUM IONIZED, PH CORRECTED 1.24 mmol/L Normal 1.08-1.30 [facility] Comment on above: Order Comment: Speci men Type: VENOUS BLOOD SPECIMEN Performed By: #### 2 4344-4 ####[facility]ORYCLIA [id number] [address] Calcium.ionized (BldV) [Mass/Vol] 1.23 mmol/L Normal 1.08-1.30 [facility] Comment on above: Order Comment: Speci men Type: VENOUS BLOOD SPECIMEN Performed By: #### 2 4344-4 ####[facility]ORYCLIA [id number] [address] Carboxyhemoglobin (BldV) [Mass fraction] 1.2 % Normal 0.0-2.0 [facility] Comment on above: Order Comment: Speci men Type: VENOUS BLOOD SPECIMEN Result Comment: Carb oxyhemoglobin Reference Range for Smokers: 2.0-8.0% Performed By: #### 2 4344-4 ####[facility]ORYCLIA [id number] [address] [place] CO2 (BldV) [Partial pressure] 48 mm[Hg] Normal 42-55 [facility] Comment on above: Order Comment: Speci men Type: VENOUS BLOOD SPECIMEN Performed By: #### 2 4344-4 ####[facility]ORYCLIA [id number] [address] OF [place] CO2 [Moles/Vol] 28.2 mmol/L Normal 25-29 [facility] Comment on above: Order Comment: Speci men Type: VENOUS BLOOD SPECIMEN Performed By: #### 2 4344-4 ####[facility]ORYCLIA [id number] [address] CO2 adjusted to patient's actual temperature (BldV) [Partial pressure] 49 mmHg Normal 42-55 [facility] Comment on above: Order Comment: Speci men Type: VENOUS BLOOD SPECIMEN Performed By: #### 2 4344-4 ####[facility]ORYCLIA [id number] [address] [place] Glucose [Mass/Vol] 131 mg/dL High 60-105 [facility] Comment on above: Order Comment: Speci men Type: VENOUS BLOOD SPECIMEN Performed By: #### 2 4344-4 ####[facility]ORYCLIA [id number] [address] [place] HCO3 (Bld) [Moles/Vol] 30.6 mmol/L High 24-[address] [facility] Comment on above: Order Comment: Speci men Type: VENOUS BLOOD SPECIMEN Performed By: #### 2 4344-4 ####[facility]CLIA [id number] [address] [place] Hematocrit (Bld) [Volume fraction] 32.8 % Low 39.0-51.0 [facility] Comment on above: Order Comment: Speci men Type: VENOUS BLOOD SPECIMEN Performed By: #### 2 4344-4 ####[facility]ORYCLIA [id number] [address] Hemoglobin (Bld) [Mass/Vol] 10.6 g/dL Low 13.0-17.0 [facility] Comment on above: Order Comment: Speci men Type: VENOUS BLOOD SPECIMEN Performed By: #### 2 4344-4 ####[facility]ORYCLIA [id number] [address] LITERS 6 Liters/min Normal [facility] Comment on above: Order Comment: Speci men Type: VENOUS BLOOD SPECIMEN Performed By: #### 2 4344-4 ####[facility]ORYCLIA [id number] [address] Methemoglobin (Bld) [Mass fraction] 1.0 % Normal 0.0-1.5 [facility] Comment on above: Order Comment: Speci men Type: VENOUS BLOOD SPECIMEN Performed By: #### 2 4344-4 ####[facility]ORYCLIA [id number] [address] O2 THERAPY NC = Nasal Cannula Normal [facility] Comment on above: Order Comment: Speci men Type: VENOUS BLOOD SPECIMEN Performed By: #### 2 4344-4 ####[facility]ORYCLIA [id number] [address] Oxygen (BldV) [Partial pressure] 42 mm[Hg] Normal 35-45 [facility] Comment on above: Order Comment: Speci men Type: VENOUS BLOOD SPECIMEN Performed By: #### 2 4344-4 ####[facility]ORYCLIA [id number] [address] Oxygen adjusted to patient's actual temperature (BldV) [Partial pressure] 43.8 mmHg Normal 35-45 [facility] Comment on above: Order Comment: Speci men Type: VENOUS BLOOD SPECIMEN Performed By: #### 2 4344-4 ####[facility]ORYCLIA [id number] [address] Oxygen saturation in Blood 76.7 % Normal 60-85 [facility] Comment on above: Order Comment: Speci men Type: VENOUS BLOOD SPECIMEN Performed By: #### 2 4344-4 ####[facility]ATORYCLIA [id number] [address] Oxyhemoglobin (BldV) [Mass fraction] 75 % Normal 60-85 [facility] Comment on above: Order Comment: Speci men Type: VENOUS BLOOD SPECIMEN Performed By: #### 2 4344-4 ####[facility]ORYCLIA [id number] [address] pH (BldV) 7.42 [pH] Normal 7.32-7.42 [facility] Comment on above: Order Comment: Speci men Type: VENOUS BLOOD SPECIMEN Performed By: #### 2 4344-4 ####[facility]ORYCLIA [id number] [address] pH adjusted to patient's actual temperature (BldV) 7.41 Normal 7.32-7.42 [facility] Comment on above: Order Comment: Speci men Type: VENOUS BLOOD SPECIMEN Performed By: #### 2 4344-4 ####[facility]ORYCLIA [id number] [address] OF [facility] Potassium [Moles/Vol] 3.5 mmol/L Normal 3.5-5.0 [facility] Comment on above: Order Comment: Speci men Type: VENOUS BLOOD SPECIMEN Performed By: #### 2 4344-4 ####[facility]ORYCLIA [id number] [address] STATES [facility] Sodium [Moles/Vol] 157 mmol/L High 136-144 [facility] Comment on above: Order Comment: Speci men Type: VENOUS BLOOD SPECIMEN Performed By: #### 2 4344-4 ####[facility]ORYCLIA [id number] [place] [address] [place] Magnesium SerPl-mCncon 06-13 Magnesium [Mass/Vol] 3.0 mg/dL High 1.7-2.3 [facility] Comment on above: Order Comment: Speci men Type: BLOOD SPECIMEN Performed By: #### 2 4321-2, , 2776-05 ####[facility]ORYCLIA [id number] [address] [place] Magnesium [Mass/Vol] 2.2 mg/dL Normal 1.7-2.3 [facility] Comment on above: Order Comment: Speci men Type: BLOOD SPECIMEN Performed By: #### 2 4321-2, 2776-05, ####[facility]ORYCLIA [id number] [address] [place] Phosphate SerPl-ncon 06-13 Phosphate [Mass/Vol] 2.2 mg/dL Low 2.7-4.8 [facility] Comment on above: Order Comment: Speci men Type: BLOOD SPECIMEN Performed By: #### 2 4321-2, , 2776-05 ####[facility]ORYCLIA [id number] [address] [place] Phosphate [Mass/Vol] 1.8 mg/dL Low 2.7-4.8 [facility] Comment on above: Order Comment: Speci men Type: BLOOD SPECIMEN Performed By: #### 2 4321-2, 2776-05, ####[facility]ORYCLIA [id number] [place] [address] [place] XR CHEST 1V FRONTALon 2021 XR CHEST 1V FRONTAL Normal [facility] ALLIED HEALTHon 06-12-2021 ALLIED HEALTH Normal [facility] BRIEF OP NOTon 06-12-2021 BRIEF OP NOT Normal [facility] Bacteria Fld Culton 06-12-19 22 Bacteria identified Cx Nom (Body fld) CULTURE, BODY FLD: No growth 5 days GRAM STAIN: No organisms seen Moderate Polymorphonuclear leukocytes Normal [facility] Comment on above: Performed By: #### 6 11-4 ####[facility] [id number] [address] OF [facility] Basic metabolic 2000 panelon 06-12-2021 Anion gap [Moles/Vol] 6 mmol/L Low 9-18 [facility] Comment on above: Order Comment: Speci men Type: BLOOD SPECIMEN Performed By: #### 2 777-1, , ####[facility] [id number] [address] [place] Calcium [Mass/Vol] 8.7 mg/dL Normal 8.5-10.2 [facility] Comment on above: Order Comment: Speci men Type: BLOOD SPECIMEN Performed By: #### 2 777-1, , ####[facility]ORY[facility] [id number] [address] STATES OF [facility] Chloride [Moles/Vol] 118 mmol/L High 97-105 [facility] Comment on above: Order Comment: Speci men Type: BLOOD SPECIMEN Performed By: #### 2 777-1, , ####[facility]ORY[facility] [id number] [address] [place] CO2 [Moles/Vol] 28 mmol/L Normal 22-30 [facility] Comment on above: Order Comment: Speci men Type: BLOOD SPECIMEN Performed By: #### 2 777-1, 68689-5, ####[facility]ATORYCLIA [id number] [address] [place] Creatinine [Mass/Vol] 0.77 mg/dL Normal 0.73-1.22 [facility] Comment on above: Order Comment: Speci men Type: BLOOD SPECIMEN Performed By: #### 2 777-1, 39937-0, ####[facility]ATORYCLIA [id number] [place] [address] [place] GFR/1.73 sq M.predicted MDRD (S/P/Bld) [Vol rate/Area] mL/min/{1.73_m2} Normal [facility] Comment on above: Order Comment: [...] actual GFR. Performed By: #### 2 777-1, 14459-6, 62703-7 ####[facility]ORATORYCLIA [id number] [place] [address] [place] Glucose [Mass/Vol] 116 mg/dL High 74-99 [facility] Comment on above: Order Comment: Speci men Type: BLOOD SPECIMEN Result Comment: The [place] Diabetes Association (ADA) provides guidance for cutoff [...] Standards of Medical Care in Diabetes 2016, [place] [employer]. Diabetes Care. 2016.39(Suppl 1). Performed By: #### 2 777-1, 84017-0, 51137-0 ####[facility]ORATORYCLIA [id number] [place] [address] [place] Potassium [Moles/Vol] 4.0 mmol/L Normal 3.7-5.1 [facility] Comment on above: Order Comment: Speci men Type: BLOOD SPECIMEN Performed By: #### 2 777-1, 49415-0, ####[facility]ORATORYCLIA [id number] [address] Sodium [Moles/Vol] 152 mmol/L High 136-144 [facility] Comment on above: Order Comment: Speci men Type: BLOOD SPECIMEN Performed By: #### 2 777-1, 23913-1, ####[facility]ORATORYCLIA [id number] [address] Urea nitrogen [Mass/Vol] 34 mg/dL High 9-24 [facility] Comment on above: Order Comment: Speci men Type: BLOOD SPECIMEN Performed By: #### 2 777-1, 66215-9, ####[facility]ORATORYCLIA [id number] [address] CBC panel Auto (Bld)on 06-12 Erythrocyte distribution width (RBC) [Ratio] 16.1 % High 11.5-15.0 [facility] Comment on above: Order Comment: Speci men Type: BLOOD SPECIMEN Performed By: #### 5 8410-2 ####[facility]ORATORYCLIA [id number] [address] Hematocrit (Bld) [Volume fraction] 32.8 % Low 39.0-51.0 [facility] Comment on above: Order Comment: Speci men Type: BLOOD SPECIMEN Performed By: #### 5 8410-2 ####[facility]ORATORYCLIA [id number] [address] Hemoglobin (Bld) [Mass/Vol] 9.9 g/dL Low 13.0-17.0 [facility] Comment on above: Order Comment: Speci men Type: BLOOD SPECIMEN Performed By: #### 5 8410-2 ####[facility]ATORYCLIA [id number] [address] MCH (RBC) [Entitic mass] 28.4 pg Normal 26.0-34.0 [facility] Comment on above: Order Comment: Speci men Type: BLOOD SPECIMEN Performed By: #### 5 8410-2 ####[facility]ORATORYCLIA [id number] [address] MCHC (RBC) [Mass/Vol] 30.2 g/dL Low 30.5-36.0 [facility] Comment on above: Order Comment: Speci men Type: BLOOD SPECIMEN Performed By: #### 5 8410-2 ####[facility]ORATORYCLIA [id number] [address] MCV (RBC) [Entitic vol] 94.3 fL Normal 80.0-100.0 [facility] Comment on above: Order Comment: Speci men Type: BLOOD SPECIMEN Performed By: #### 5 8410-2 ####[facility]ORATORYCLIA [id number] [address] Nucleated RBC (Bld) [#/Vol] 10*3/uL Normal <0.01 [facility] Comment on above: Order Comment: Speci men Type: BLOOD SPECIMEN Performed By: #### 5 8410-2 ####[facility]ORATORYCLIA [id number] [address] Platelet mean volume (Bld) [Entitic vol] 11.2 fL Normal 9.0-12.7 [facility] Comment on above: Order Comment: Speci men Type: BLOOD SPECIMEN Performed By: #### 5 8410-2 ####[facility]ORATORYCLIA [id number] [address] Platelets (Bld) [#/Vol] 218 10*3/uL Normal 150-400 [facility] Comment on above: Order Comment: Speci men Type: BLOOD SPECIMEN Performed By: #### 5 8410-2 ####[facility]ORATORYCLIA [id number] [address] OF [facility] RBC (Bld) [#/Vol] 3.48 10*6/uL Low 4.20-6.00 [facility] Comment on above: Order Comment: Speci men Type: BLOOD SPECIMEN Performed By: #### 5 8410-2 ####[facility]ORATORYCLIA [id number] [address] WBC (Bld) [#/Vol] 13.33 10*3/uL High 3.70-11.00 [facility] Comment on above: Order Comment: Speci men Type: BLOOD SPECIMEN Performed By: #### 5 8410-2 ####[facility]ORATORYCLIA [id number] [address] CONSULT PROGon 06-12-2021 CONSULT PROG Normal [facility] CT DRN PLACE PERIT/RETROP FL BIon 06-12-[address] PERIT/RETROP FL BI Normal [facility] HISTORY PHYSICALon HISTORY PHYSICAL Normal [facility] Magnesium SerPl-mCncon 06-12 Magnesium [Mass/Vol] 2.7 mg/dL High 1.7-2.3 [facility] Comment on above: Order Comment: Speci men Type: BLOOD SPECIMEN Performed By: #### 2 777-1, 75321-9, 92923-1 ####[facility]ORATORYCLIA [id number] [address] PT panel Coag (PPP)on 2021 INR Coag (PPP) [Relative time] 1.1 {INR} Normal 0.9-1.3 [facility] Comment on above: Order Comment: Speci men Type: BLOOD SPECIMEN Result Comment: Yris min K Antagonist (VKA) Therapeutic Range: INR 2 to 3 (Target INR of 2.5)Note: For patients treated with VKA drugs, such as warfarin, the [place] [employer] 2012 Guideline recommends [...] al. Chest 2012, 141:7S-47SNishimura RA, et al. [employer] 2017, 70: 252-289 Performed By: #### 3 4528-0 ####[facility]ORATORYCLIA [id number] [address] PT Coag (PPP) [Time] 11.9 s Normal 9.7-13.0 [facility] Comment on above: Order Comment: Speci men Type: BLOOD SPECIMEN Performed By: #### 3 4528-0 ####[facility]ORATORYCLIA [id number] [address] [place] Phosphate SerPl-mCncon 06-12 Phosphate [Mass/Vol] 2.2 mg/dL Low 2.7-4.8 [facility] Comment on above: Order Comment: Speci men Type: BLOOD SPECIMEN Performed By: #### 2 777-1, 13446-1, 19377-2 ####[facility]ORATORYCLIA [id number] [address] [place] XR ABDOMEN 1V SUPINEon 06-12 XR ABDOMEN 1V SUPINE Normal [facility] ALLIED HEALTHon 06-11-2021 ALLIED HEALTH Normal [facility] Bacteria Bld Culton 06-11-19 Bacteria identified Cx Nom (Bld) CULTURE, BLOOD: No growth 5 days Normal [facility] Comment on above: Performed By: #### 6 00-7 ####[facility]ORATORYCLIA [id number] [address] STATES OF [facility] Bacteria identified Cx Nom (Bld) CULTURE, BLOOD: No growth 5 days Normal [facility] Comment on above: Performed By: #### 6 00-7 ####[facility]ORATORYCLIA [id number] [address] Bacteria Ur Culton 2 Bacteria identified Cx Nom (U) CULTURE, URINE: No growth (<1,000 CFU/ml) Normal [facility] Comment on above: Performed By: #### 6 30-4 ####[facility]ATORYCLIA [id number] [address] Basic metabolic 2000 panelon 06-11-2021 Anion gap [Moles/Vol] 9 mmol/L Normal 9-18 [facility] Comment on above: Order Comment: Speci men Type: BLOOD SPECIMEN Performed By: #### 1 9123-9, 2777-, 66653-0 ####[facility]ORATORYCLIA [id number] [address] OF [facility] Calcium [Mass/Vol] 8.5 mg/dL Normal 8.5-10.2 [facility] Comment on above: Order Comment: Speci men Type: BLOOD SPECIMEN Performed By: #### 1 9123-9, 2776-05, 73148-0 ####[facility]ORATORYCLIA [id number] [address] Chloride [Moles/Vol] 118 mmol/L High 97-105 [facility] Comment on above: Order Comment: Speci men Type: BLOOD SPECIMEN Performed By: #### 1 9123-9, 27711-04, 04340-6 ####[facility]ORATORYCLIA [id number] [address] [place] CO2 [Moles/Vol] 27 mmol/L Normal 22-30 [facility] Comment on above: Order Comment: Speci men Type: BLOOD SPECIMEN Performed By: #### 1 9123-9, 2777, 81131-3 ####[facility]ORYCLIA [id number] [address] [place] Creatinine [Mass/Vol] 0.75 mg/dL Normal 0.73-1.22 [facility] Comment on above: Order Comment: [facility] Type: BLOOD SPECIMEN Performed By: #### 1 9123-9, 2777-1, 79833-0 ####[facility]ORATORYCLIA [id number] [place] [address] [place] GFR/1.73 sq M.predicted MDRD (S/P/Bld) [Vol rate/Area] mL/min/{1.73_m2} Normal [facility] Comment on above: Order Comment: [...] GFR. Performed By: #### 1 9123-9, 2777-1, 32440-8 ####[facility]ORATORYCLIA [id number] [place] [address] [place] Glucose [Mass/Vol] 142 mg/dL High 74-99 [facility] Comment on above: Order Comment: [facility] Type: BLOOD SPECIMEN Result Comment: The [place] Diabetes Association (ADA) provides guidance for cutoff [...] Standards of Medical Care in Diabetes 2016, [place] [employer]. Diabetes Care. 2016.39(Suppl 1). Performed By: #### 1 9123-9, 2777, 63295-3 ####[facility]ORATORYCLIA [id number] [address] Potassium [Moles/Vol] 3.6 mmol/L Low 3.7-5.1 [facility] Comment on above: Order Comment: Speci men Type: BLOOD SPECIMEN Performed By: #### 1 9123-9, 27711-04, 26582-9 ####[facility]ATORYCLIA [id number] [address] Sodium [Moles/Vol] 154 mmol/L High 136-144 [facility] Comment on above: Order Comment: Speci men Type: BLOOD SPECIMEN Performed By: #### 1 9123-9, 27711-04, 32905-0 ####[facility]ATORYCLIA [id number] [address] Urea nitrogen [Mass/Vol] 31 mg/dL High 9-24 [facility] Comment on above: Order Comment: Speci men Type: BLOOD SPECIMEN Performed By: #### 1 9123-9, 27711-04, ####[facility]ORATORYCLIA [id number] [address] C diff Tox gens Stl Ql MEGAN+p robeon 06-11-2021 C. difficile toxin genes MEGAN+probe Ql (Stl) Negative Normal Negative for C. difficile toxin by PCR [facility] Comment on above: Order Comment: Speci men Type: STOOL SPECIMEN Performed By: #### 5 4067-4 ####[facility]ORATORYCLIA [id number] [address] CBC W Auto Differential pane l (Bld)on 06-11-2021 Basophils (Bld) [#/Vol] 0.03 10*3/uL Normal <0.11 [facility] Comment on above: Order Comment: Speci men Type: BLOOD SPECIMEN Performed By: #### 5 7021-8 ####[facility]ORYCLIA [id number] [address] Basophils/100 WBC (Bld) 0.2 % Normal [facility] Comment on above: Order Comment: Speci men Type: BLOOD SPECIMEN Performed By: #### 5 7021-8 ####[facility]ORYCLIA [id number] [address] [place] Differential cell count method Nom (Bld) Auto Normal [facility] Comment on above: Order Comment: Speci men Type: BLOOD SPECIMEN Performed By: #### 5 7021-8 ####[facility]ORYCLIA [id number] [address] Eosinophils (Bld) [#/Vol] 0.19 10*3/uL Normal <0.46 [facility] Comment on above: Order Comment: Speci men Type: BLOOD SPECIMEN Performed By: #### 5 7021-8 ####[facility]ORATORYCLIA [id number] [address] Eosinophils/100 WBC (Bld) 1.5 % Normal [facility] Comment on above: Order Comment: Speci men Type: BLOOD SPECIMEN Performed By: #### 5 7021-8 ####[facility]ORATORYCLIA [id number] [address] Erythrocyte distribution width (RBC) [Ratio] 16.3 % High 11.5-15.0 [facility] Comment on above: Order Comment: Speci men Type: BLOOD SPECIMEN Performed By: #### 5 7021-8 ####[facility]ORYCLIA [id number] [address] Hematocrit (Bld) [Volume fraction] 32.1 % Low 39.0-51.0 [facility] Comment on above: Order Comment: Speci men Type: BLOOD SPECIMEN Performed By: #### 5 7021-8 ####[facility]ORYCLIA [id number] [address] Hemoglobin (Bld) [Mass/Vol] 9.3 g/dL Low 13.0-17.0 [facility] Comment on above: Order Comment: Speci men Type: BLOOD SPECIMEN Performed By: #### 5 7021-8 ####[facility]ORATORYCLIA [id number] [address] IMMATURE GRAN % 0.6 % Normal [facility] Comment on above: Order Comment: Speci men Type: BLOOD SPECIMEN Performed By: #### 5 7021-8 ####[facility]ORATORYCLIA [id number] [address] IMMATURE GRAN ABS 0.08 k/uL Normal <0.10 [facility] Comment on above: Order Comment: Speci men Type: BLOOD SPECIMEN Performed By: #### 5 7021-8 ####[facility]ATORYCLIA [id number] [address] Lymphocytes (Bld) [#/Vol] 1.65 10*3/uL Normal 1.00-4.00 [facility] Comment on above: Order Comment: Speci men Type: BLOOD SPECIMEN Performed By: #### 5 7021-8 ####[facility]ORATORYCLIA [id number] [address] Lymphocytes/100 WBC (Bld) 12.8 % Normal [facility] Comment on above: Order Comment: Speci men Type: BLOOD SPECIMEN Performed By: #### 5 7021-8 ####[facility]ATORYCLIA [id number] [address] MCH (RBC) [Entitic mass] 27.2 pg Normal 26.0-34.0 [facility] Comment on above: Order Comment: Speci men Type: BLOOD SPECIMEN Performed By: #### 5 7021-8 ####[facility]ORATORYCLIA [id number] [address] MCHC (RBC) [Mass/Vol] 29.0 g/dL Low 30.5-36.0 [facility] Comment on above: Order Comment: Speci men Type: BLOOD SPECIMEN Performed By: #### 5 7021-8 ####[facility]ORYCLIA [id number] [address] MCV (RBC) [Entitic vol] 93.9 fL Normal 80.0-100.0 [facility] Comment on above: Order Comment: Speci men Type: BLOOD SPECIMEN Performed By: #### 5 7021-8 ####[facility]ORYCLIA [id number] [address] Monocytes (Bld) [#/Vol] 0.68 10*3/uL Normal <0.87 [facility] Comment on above: Order Comment: Speci men Type: BLOOD SPECIMEN Performed By: #### 5 7021-8 ####[facility]ORYCLIA [id number] [address] Monocytes/100 WBC (Bld) 5.3 % Normal [facility] Comment on above: Order Comment: Speci men Type: BLOOD SPECIMEN Performed By: #### 5 7021-8 ####[facility]ORYCLIA [id number] [address] Neutrophils (Bld) [#/Vol] 10.22 10*3/uL High 1.45-7.50 [facility] Comment on above: Order Comment: Speci men Type: BLOOD SPECIMEN Performed By: #### 5 7021-8 ####[facility]ORYCLIA [id number] [address] Neutrophils/100 WBC (Bld) 79.6 % Normal [facility] Comment on above: Order Comment: Speci men Type: BLOOD SPECIMEN Performed By: #### 5 7021-8 ####[facility]ORYCLIA [id number] [address] Nucleated RBC (Bld) [#/Vol] 10*3/uL Normal <0.01 [facility] Comment on above: Order Comment: Speci men Type: BLOOD SPECIMEN Performed By: #### 5 7021-8 ####[facility]ORATORYCLIA [id number] [address] Nucleated RBC/100 WBC (Bld) [Ratio] 0.0 /100 WBC Normal 0.0 [facility] Comment on above: Order Comment: Speci men Type: BLOOD SPECIMEN Performed By: #### 5 7021-8 ####[facility]ATORYCLIA [id number] [address] Platelet mean volume (Bld) [Entitic vol] 11.1 fL Normal 9.0-12.7 [facility] Comment on above: Order Comment: Speci men Type: BLOOD SPECIMEN Performed By: #### 5 7021-8 ####[facility]ATORYCLIA [id number] [address] Platelets (Bld) [#/Vol] 188 10*3/uL Normal 150-400 [facility] Comment on above: Order Comment: Speci men Type: BLOOD SPECIMEN Performed By: #### 5 7021-8 ####[facility]ATORYCLIA [id number] [address] RBC (Bld) [#/Vol] 3.42 10*6/uL Low 4.20-6.00 [facility] Comment on above: Order Comment: Speci men Type: BLOOD SPECIMEN Performed By: #### 5 7021-8 ####[facility]ATORYCLIA [id number] [address] WBC (Bld) [#/Vol] 12.85 10*3/uL High 3.70-11.00 [facility] Comment on above: Order Comment: Speci men Type: BLOOD SPECIMEN Performed By: #### 5 7021-8 ####[facility]ATORYCLIA [id number] [address] CBC panel Auto (Bld)on 06-11 Erythrocyte distribution width (RBC) [Ratio] 16.2 % High 11.5-15.0 [facility] Comment on above: Order Comment: Speci men Type: BLOOD SPECIMEN Performed By: #### 5 8410-2 ####[facility]ATORYCLIA [id number] [address] Hematocrit (Bld) [Volume fraction] 34.5 % Low 39.0-51.0 [facility] Comment on above: Order Comment: Speci men Type: BLOOD SPECIMEN Performed By: #### 5 8410-2 ####[facility]ORYCLIA [id number] [address] Hemoglobin (Bld) [Mass/Vol] 10.3 g/dL Low 13.0-17.0 [facility] Comment on above: Order Comment: Speci men Type: BLOOD SPECIMEN Performed By: #### 5 8410-2 ####[facility]ATORYCLIA [id number] [address] MCH (RBC) [Entitic mass] 28.1 pg Normal 26.0-34.0 [facility] Comment on above: Order Comment: Speci men Type: BLOOD SPECIMEN Performed By: #### 5 8410-2 ####[facility]ATORYCLIA [id number] [address] MCHC (RBC) [Mass/Vol] 29.9 g/dL Low 30.5-36.0 [facility] Comment on above: Order Comment: Speci men Type: BLOOD SPECIMEN Performed By: #### 5 8410-2 ####[facility]ATORYCLIA [id number] [address] MCV (RBC) [Entitic vol] 94.3 fL Normal 80.0-100.0 [facility] Comment on above: Order Comment: Speci men Type: BLOOD SPECIMEN Performed By: #### 5 8410-2 ####[facility]ATORYCLIA [id number] [address] Nucleated RBC (Bld) [#/Vol] 10*3/uL Normal <0.01 [facility] Comment on above: Order Comment: Speci men Type: BLOOD SPECIMEN Performed By: #### 5 8410-2 ####[facility]ATORYCLIA [id number] [address] Platelet mean volume (Bld) [Entitic vol] 10.9 fL Normal 9.0-12.7 [facility] Comment on above: Order Comment: Speci men Type: BLOOD SPECIMEN Performed By: #### 5 8410-2 ####[facility]ATORYCLIA [id number] [address] Platelets (Bld) [#/Vol] 210 10*3/uL Normal 150-400 [facility] Comment on above: Order Comment: Speci men Type: BLOOD SPECIMEN Performed By: #### 5 8410-2 ####[facility]ORATORYCLIA [id number] [address] OF [facility] RBC (Bld) [#/Vol] 3.66 10*6/uL Low 4.20-6.00 [facility] Comment on above: Order Comment: Speci men Type: BLOOD SPECIMEN Performed By: #### 5 8410-2 ####[facility]ATORYCLIA [id number] [address] WBC (Bld) [#/Vol] 13.03 10*3/uL High 3.70-11.00 [facility] Comment on above: Order Comment: Speci men Type: BLOOD SPECIMEN Performed By: #### 5 8410-2 ####[facility]ORATORYCLIA [id number] [address] OF [facility] CONSULT PROGon 06-11-2021 CONSULT PROG Normal [facility] CONSULT PROG Normal [facility] CONSULT PROG Normal [facility] CT ABD/PEL W IVCONon 022 CT ABD/PEL W IVCON Invalid Interpretation Code [facility] Magnesium SerPl-mCncon 06-11 Magnesium [Mass/Vol] 2.7 mg/dL High 1.7-2.3 [facility] Comment on above: Order Comment: Speci men Type: BLOOD SPECIMEN Performed By: #### 1 9123-9, 2777-1, 91085-5 ####[facility]ATORYCLIA [id number] [place], [place] [id number] [place] [address] [place] Phosphate SerPl-mCncon 06-11 Phosphate [Mass/Vol] 2.5 mg/dL Low 2.7-4.8 [facility] Comment on above: Order Comment: Speci men Type: BLOOD SPECIMEN Performed By: #### 1 9123-9, 2777-1, 08098-3 ####[facility]ORYCLIA [id number] [place], [place] [id number] [place] [address] Basic metabolic 2000 panelon 06-10-2021 Anion gap [Moles/Vol] 7 mmol/L Low 9-18 [facility] Comment on above: Order Comment: Speci men Type: BLOOD SPECIMEN Performed By: #### 2 777-1, 02858-2, , HFP ####[facility]ORATORYCLIA [id number] [place], [place] [address] [place] [address] [place] [facility] Calcium [Mass/Vol] 8.5 mg/dL Normal 8.5-10.2 [facility] Comment on above: Order Comment: Speci men Type: BLOOD SPECIMEN Performed By: #### 2 777-1, 73113-4, , HFP ####[facility]ORYCLIA [id number] [place], [place] [address] [place] [address] [place] Chloride [Moles/Vol] 118 mmol/L High 97-105 [facility] Comment on above: Order Comment: Speci men Type: BLOOD SPECIMEN Performed By: #### 2 777-1, 59324-5, , HFP ####[facility]ORYCLIA [id number] [place], [place] [address] [place] [address] [place] CO2 [Moles/Vol] 26 mmol/L Normal 22-30 [facility] Comment on above: Order Comment: Speci men Type: BLOOD SPECIMEN Performed By: #### 2 777-1, 24672-9, , [facility] ####[facility] LABORATORYCLIA [id number] [place] [address] [place] Creatinine [Mass/Vol] 0.70 mg/dL Low 0.73-1.22 [facility] Comment on above: Order Comment: Speci men Type: BLOOD SPECIMEN Performed By: #### 2 777-1, 83593-6, , [facility] ####[facility] LABORATORYCLIA [id number] [place] [id number] [place] GFR/1.73 sq M.predicted MDRD (S/P/Bld) [Vol rate/Area] mL/min/{1.73_m2} Normal [facility] Comment on above: Order Comment: [...] actual GFR. Performed By: #### 2 777-1, 16749-9, , [facility] ####[facility] LABORATORYCLIA [id number] [place] [id number] [place] Glucose [Mass/Vol] 135 mg/dL High 74-99 [facility] Comment on above: Order Comment: [facility] Type: BLOOD SPECIMEN Result Comment: The [place] [employer] (ADA) provides guidance for cutoff [...] Standards of Medical Care in Diabetes 2016, [place] [employer]. Diabetes Care. 2016.39(Suppl 1). Performed By: #### 2 777-1, 09651-8, , [facility] ####[facility] LABORATORYCLIA [id number] [address] STATES OF [facility] Potassium [Moles/Vol] 3.9 mmol/L Normal 3.7-5.1 [facility] Comment on above: Order Comment: Speci men Type: BLOOD SPECIMEN Performed By: #### 2 777-1, 00170-0, , [facility] ####[facility] LABORATORYCLIA [id number] [address] STATES [facility] Sodium [Moles/Vol] 151 mmol/L High 136-144 [facility] Comment on above: Order Comment: Speci men Type: BLOOD SPECIMEN Performed By: #### 2 777-1, 57270-6, , [facility] ####[facility] LABORATORYCLIA [id number] [address] STATES [facility] Urea nitrogen [Mass/Vol] 27 mg/dL High 9-24 [facility] Comment on above: Order Comment: Speci men Type: BLOOD SPECIMEN Performed By: #### 2 777-1, 64776-2, , [facility] ####[facility] LABORATORYCLIA [id number] [address] CASE MANAGEMon 06-10-2021 CASE MANAGEM Normal [facility] CBC panel Auto (Bld)on 06-10 Erythrocyte distribution width (RBC) [Ratio] 16.2 % High 11.5-15.0 [facility] Comment on above: Order Comment: Speci men Type: BLOOD SPECIMEN Performed By: #### 5 8410-2 ####[facility] LABORATORYCLIA [id number] [address] Hematocrit (Bld) [Volume fraction] 34.8 % Low 39.0-51.0 [facility] Comment on above: Order Comment: Speci men Type: BLOOD SPECIMEN Performed By: #### 5 8410-2 ####[facility] LABORATORYCLIA [id number] [address] Hemoglobin (Bld) [Mass/Vol] 10.2 g/dL Low 13.0-17.0 [facility] Comment on above: Order Comment: Speci men Type: BLOOD SPECIMEN Performed By: #### 5 8410-2 ####[facility] LABORATORYCLIA [id number] [address] MCH (RBC) [Entitic mass] 27.1 pg Normal 26.0-34.0 [facility] Comment on above: Order Comment: Speci men Type: BLOOD SPECIMEN Performed By: #### 5 8410-2 ####[facility] LABORATORYCLIA [id number] [address] MCHC (RBC) [Mass/Vol] 29.3 g/dL Low 30.5-36.0 [facility] Comment on above: Order Comment: Speci men Type: BLOOD SPECIMEN Performed By: #### 5 8410-2 ####[facility] LABORATORYCLIA [id number] [address] MCV (RBC) [Entitic vol] 92.6 fL Normal 80.0-100.0 [facility] Comment on above: Order Comment: Speci men Type: BLOOD SPECIMEN Performed By: #### 5 8410-2 ####[facility] LABORATORYCLIA [id number] [address] Nucleated RBC (Bld) [#/Vol] 10*3/uL Normal <0.01 [facility] Comment on above: Order Comment: Speci men Type: BLOOD SPECIMEN Performed By: #### 5 8410-2 ####[facility] LABORATORYCLIA [id number] [address] Platelet mean volume (Bld) [Entitic vol] 10.4 fL Normal 9.0-12.7 [facility] Comment on above: Order Comment: Speci men Type: BLOOD SPECIMEN Performed By: #### 5 8410-2 ####[facility] LABORATORYCLIA [id number] [address] Platelets (Bld) [#/Vol] 206 10*3/uL Normal 150-400 [facility] Comment on above: Order Comment: Speci men Type: BLOOD SPECIMEN Performed By: #### 5 8410-2 ####[facility] LABORATORYCLIA [id number] [address] RBC (Bld) [#/Vol] 3.76 10*6/uL Low 4.20-6.00 [facility] Comment on above: Order Comment: Speci men Type: BLOOD SPECIMEN Performed By: #### 5 8410-2 ####[facility] LABORATORYCLIA [id number] [address] WBC (Bld) [#/Vol] 11.36 10*3/uL High 3.70-11.00 [facility] Comment on above: Order Comment: Speci men Type: BLOOD SPECIMEN Performed By: #### 5 8410-2 ####[facility] LABORATORYCLIA [id number] [address] HEPATIC FUNCTION PNLon 06-10 Albumin [Mass/Vol] 3.1 g/dL Low 3.9-4.9 [facility] Comment on above: Order Comment: Speci men Type: BLOOD SPECIMEN Performed By: #### 2 777-1, 52253-2, , [facility] ####[facility] LABORATORYCLIA [id number] [address] ALP [Catalytic activity/Vol] 73 U/L Normal 38-113 [facility] Comment on above: Order Comment: Speci men Type: BLOOD SPECIMEN Performed By: #### 2 777-1, 38605-5, , [facility] ####[facility]ORATORYCLIA [id number] [place] [address] [facility] ALT With P-5'-P [Catalytic activity/Vol] 64 U/L High 10-54 [facility] Comment on above: Order Comment: Speci men Type: BLOOD SPECIMEN Performed By: #### 2 777-1, 70055-1, , [facility] ####[facility]ORATORYCLIA [id number] [place] [address] [facility] AST With P-5'-P [Catalytic activity/Vol] 44 U/L High 14-40 [facility] Comment on above: Order Comment: Speci men Type: BLOOD SPECIMEN Performed By: #### 2 777-1, 43633-5, , [facility] ####[facility] LABORATORYCLIA [id number] [place], [place] [address] [place] [address] [facility] Bilirubin [Mass/Vol] 0.5 mg/dL Normal 0.2-1.3 [facility] Comment on above: Order Comment: Speci men Type: BLOOD SPECIMEN Performed By: #### 2 777-1, 76758-4, , [facility] ####[facility] LABORATORYCLIA [id number] [address] Bilirubin.conjugated [Mass/Vol] mg/dL Normal <0.2 [facility] Comment on above: Order Comment: Speci men Type: BLOOD SPECIMEN Performed By: #### 2 777-1, 28981-2, , [facility] ####[facility] LABORATORYCLIA [id number] [place], [place] [address] [place] [address] [facility] Protein [Mass/Vol] 5.7 g/dL Low 6.3-8.0 [facility] Comment on above: Order Comment: Speci men Type: BLOOD SPECIMEN Performed By: #### 2 777-1, 32660-3, , [facility] ####[facility]ORATORYCLIA [id number] [place] [address] [facility] LEVETIRACETAMon 06-10-2021 levETIRAcetam [Mass/Vol] 57.7 ug/mL High 12.0-46.0 [facility] Comment on above: Order Comment: [...] developed and its performance characteristics determined by [facility]'s Isrrael Perez [facility] Pathology and Laboratory Medicine [place] ( [facility]). It has not been cleared or approved by the FDA. [facility] is regulated under CLIA as qualified to perform high complexity testing. This test is used for clinical purposes. It should not be regarded as investigational or for research. Performed By: #### L EVET ####[facility] REFERENCE LABCLIA [id number] [place] [address] [place] Magnesium SerPl-mCncon 06-10 Magnesium [Mass/Vol] 2.7 mg/dL High 1.7-2.3 [facility] Comment on above: Order Comment: Speci men Type: BLOOD SPECIMEN Performed By: #### 2 777-1, 89080-6, , [facility] ####[facility] LABORATORYCLIA [id number] [place] [address] [place] Phosphate SerPl-mCncon 06-10 Phosphate [Mass/Vol] 1.8 mg/dL Low 2.7-4.8 [facility] Comment on above: Order Comment: Speci men Type: BLOOD SPECIMEN Performed By: #### 2 777-1, 54236-2, , [facility] ####[facility] LABORATORYCLIA [id number] [place] [address] [place] ALLIED HEALTHon 06-09-2021 ALLIED HEALTH Normal [facility] ALLIED HEALTH Normal [facility] ALLIED HEALTH Normal [facility] ALLIED HEALTH Normal [facility] Basic metabolic 2000 panelon 06-09-2021 Anion gap [Moles/Vol] 8 mmol/L Low 9-18 [facility] Comment on above: Order Comment: Speci men Type: BLOOD SPECIMEN Performed By: #### 2 4321-2, 2776-, ####[facility] LABORATORYCLIA [id number] [place] [address] [place] Calcium [Mass/Vol] 8.3 mg/dL Low 8.5-10.2 [facility] Comment on above: Order Comment: Speci men Type: BLOOD SPECIMEN Performed By: #### 2 4321-2, 2776-05, ####[facility]ORATORYCLIA [id number] [place], [place] [address] [place] [address] [place] Chloride [Moles/Vol] 116 mmol/L High 97-105 [facility] Comment on above: Order Comment: Speci men Type: BLOOD SPECIMEN Performed By: #### 2 4321-2, 2776-05, ####[facility] LABORATORYCLIA [id number] [place] [address] [place] CO2 [Moles/Vol] 27 mmol/L Normal 22-30 [facility] Comment on above: Order Comment: Speci men Type: BLOOD SPECIMEN Performed By: #### 2 4321-2, 2776-05, ####[facility]ORATORYCLIA [id number] [place] [address] [place] Creatinine [Mass/Vol] 0.70 mg/dL Low 0.73-1.22 [facility] Comment on above: Order Comment: Speci men Type: BLOOD SPECIMEN Performed By: #### 2 4321-2, 2776-05, ####[facility]ORATORYCLIA [id number] [place] [address] [place] GFR/1.73 sq M.predicted MDRD (S/P/Bld) [Vol rate/Area] mL/min/{1.73_m2} Normal [facility] Comment on above: Order Comment: [...] #### 2 4321-2, 2777-, ####[facility]ORATORYCLIA [id number] [place] [address] [place] Glucose [Mass/Vol] 123 mg/dL High 74-99 [facility] Comment on above: Order Comment: [facility] Type: BLOOD SPECIMEN Result Comment: The [place] Diabetes Association (ADA) provides guidance for cutoff [...] Standards of Medical Care in Diabetes 2016, [place] [employer]. Diabetes Care. 2016.39(Suppl 1). Performed By: #### 2 4321-2, 2777-, ####[facility] LABORATORYCLIA [id number] [place] [id number] [place] Potassium [Moles/Vol] 3.5 mmol/L Low 3.7-5.1 [facility] Comment on above: Order Comment: [facility] Type: BLOOD SPECIMEN Performed By: #### 2 4321-2, 277-, ####[facility]ORATORYCLIA [id number] [address] Sodium [Moles/Vol] 151 mmol/L High 136-144 [facility] Comment on above: Order Comment: Speci men Type: BLOOD SPECIMEN Performed By: #### 2 4321-2, 2776-1, ####[facility] LABORATORYCLIA [id number] [address] Urea nitrogen [Mass/Vol] 39 mg/dL High 9-24 [facility] Comment on above: Order Comment: Speci men Type: BLOOD SPECIMEN Performed By: #### 2 4321-2, 2776-05, ####[facility] LABORATORYCLIA [id number] [address] CBC panel Auto (Bld)on 06-09 Erythrocyte distribution width (RBC) [Ratio] 16.2 % High 11.5-15.0 [facility] Comment on above: Order Comment: Speci men Type: BLOOD SPECIMEN Performed By: #### 5 8410-2 ####[facility] LABORATORYCLIA [id number] [address] Hematocrit (Bld) [Volume fraction] 33.7 % Low 39.0-51.0 [facility] Comment on above: Order Comment: Speci men Type: BLOOD SPECIMEN Performed By: #### 5 8410-2 ####[facility]ORATORYCLIA [id number] [address] Hemoglobin (Bld) [Mass/Vol] 10.2 g/dL Low 13.0-17.0 [facility] Comment on above: Order Comment: Speci men Type: BLOOD SPECIMEN Performed By: #### 5 8410-2 ####[facility] LABORATORYCLIA [id number] [address] MCH (RBC) [Entitic mass] 27.4 pg Normal 26.0-34.0 [facility] Comment on above: Order Comment: Speci men Type: BLOOD SPECIMEN Performed By: #### 5 8410-2 ####[facility] LABORATORYCLIA [id number] [address] MCHC (RBC) [Mass/Vol] 30.3 g/dL Low 30.5-36.0 [facility] Comment on above: Order Comment: Speci men Type: BLOOD SPECIMEN Performed By: #### 5 8410-2 ####[facility] LABORATORYCLIA [id number] [address] MCV (RBC) [Entitic vol] 90.6 fL Normal 80.0-100.0 [facility] Comment on above: Order Comment: Speci men Type: BLOOD SPECIMEN Performed By: #### 5 8410-2 ####[facility] LABORATORYCLIA [id number] [address] Nucleated RBC (Bld) [#/Vol] 10*3/uL Normal <0.01 [facility] Comment on above: Order Comment: Speci men Type: BLOOD SPECIMEN Performed By: #### 5 8410-2 ####[facility] LABORATORYCLIA [id number] [address] Platelet mean volume (Bld) [Entitic vol] 10.3 fL Normal 9.0-12.7 [facility] Comment on above: Order Comment: Speci men Type: BLOOD SPECIMEN Performed By: #### 5 8410-2 ####[facility] LABORATORYCLIA [id number] [address] Platelets (Bld) [#/Vol] 219 10*3/uL Normal 150-400 [facility] Comment on above: Order Comment: Speci men Type: BLOOD SPECIMEN Performed By: #### 5 8410-2 ####[facility] LABORATORYCLIA [id number] [address] RBC (Bld) [#/Vol] 3.72 10*6/uL Low 4.20-6.00 [facility] Comment on above: Order Comment: Speci men Type: BLOOD SPECIMEN Performed By: #### 5 8410-2 ####[facility] LABORATORYCLIA [id number] [address] WBC (Bld) [#/Vol] 13.02 10*3/uL High 3.70-11.00 [facility] Comment on above: Order Comment: Speci men Type: BLOOD SPECIMEN Performed By: #### 5 8410-2 ####[facility] LABORATORYCLIA [id number] [address] CONSULT PROGon 06-09-2021 CONSULT PROG Normal [facility] CONSULT PROG Normal [facility] CT BRAIN WO IVCONon 06-09-[address] BRAIN WO IVCON Normal [facility] Magnesium SerPl-mCncon 06-09 Magnesium [Mass/Vol] 2.8 mg/dL High 1.7-2.3 [facility] Comment on above: Order Comment: Speci men Type: BLOOD SPECIMEN Performed By: #### 2 4321-2, 2777-1, ####[facility] LABORATORYCLIA [id number] [address] NURSING PROGon 06-09-2021 NURSING PROG Normal [facility] NUTRITIONon 06-09-2021 NUTRITION Normal [facility] PT EDon 06-09-2021 PT ED Normal [facility] Phosphate SerPl-mCncon 06-09 Phosphate [Mass/Vol] 2.2 mg/dL Low 2.7-4.8 [facility] Comment on above: Order Comment: Speci men Type: BLOOD SPECIMEN Performed By: #### 2 4321-2, 2777-1, 68884-5 ####[facility] LABORATORYCLIA [id number] [address] Vancomycin random [Mass/Vol] on 06-09-2021 Vancomycin [Mass/Vol] 18.9 ug/mL Normal 10.0-20.0 [facility] Comment on above: Order Comment: Speci men Type: BLOOD SPECIMEN Result Comment: Refe rence ranges and high/low indicator flags are provided as general guidelines only. The treating physician must determine appropriate target levels/dosing based on the specific clinical situation. Performed By: #### 4 091-5 ####[facility] LABORATORYCLIA [id number] [place] [address] [place] XR ABD 2V SUPINE W UPR/DECUB /CTLon 06-09-2021 XR ABD 2V SUPINE W UPR/DECUB/CTL Normal [facility] XR CHEST 1V FRONTALon 2021 XR CHEST 1V FRONTAL Normal [facility] XR NECK SOFT TISSUE 2V AP/LA Ton 06-09-2021 XR NECK SOFT TISSUE 2V AP/LAT Normal [facility] XR SKULL 2V AP/LATon 022 XR SKULL 2V AP/LAT Normal [facility] ALLIED HEALTHon 06-08-2021 ALLIED HEALTH Normal [facility] ANES POSTPROC EVALon 022 ANES POSTPROC EVAL Normal [facility] ANES PRE-OPon 06-08-2021 ANES PRE-OP Normal [facility] BRIEF OP NOTon 06-08-2021 BRIEF OP NOT Normal [facility] Bacteria Spec Anaerobe Culto n 06-08-2021 Bacteria identified Anaer cx Nom (Unsp spec) ORGANISM ID: 1 Rare Staphylococcus saccharolyticus Identification performed by [facility]-Main See scanned document for susceptibility report Normal [facility] Comment on above: Performed By: #### 6 462-6 635-3 ####[facility] LABORATORYCLIA [id number] [place] [address] [place] Bacteria Wnd Culton 06-08-19 22 Bacteria identified Cx Nom (Wound) CULTURE, INTRAOPERATIVE HARDWARE: No growth 5 days GRAM STAIN: Not performed on specimen type Normal [facility] Comment on above: Performed By: #### 6 462-6 635-3 ####[facility] LABORATORYCLIA [id number] [place] [address] [place] Basic metabolic 2000 panelon 06-08-2021 Anion gap [Moles/Vol] 9 mmol/L Normal 9-18 [facility] Comment on above: Order Comment: Speci men Type: BLOOD SPECIMEN Performed By: #### 2 4321-2, 2776-05, ####[facility]ORATORYCLIA [id number] [address] STATES OF [facility] Calcium [Mass/Vol] 8.7 mg/dL Normal 8.5-10.2 [facility] Comment on above: Order Comment: Speci men Type: BLOOD SPECIMEN Performed By: #### 2 4321-2, 2776-05, ####[facility]ORATORYCLIA [id number] [address] [place] Chloride [Moles/Vol] 113 mmol/L High 97-105 [facility] Comment on above: Order Comment: Speci men Type: BLOOD SPECIMEN Performed By: #### 2 4321-2, 2776-05, ####[facility]ORATORYCLIA [id number] [address] [place] CO2 [Moles/Vol] 26 mmol/L Normal 22-30 [facility] Comment on above: Order Comment: Speci men Type: BLOOD SPECIMEN Performed By: #### 2 4321-2, 2776-05, ####[facility]ORATORYCLIA [id number] [address] [place] Creatinine [Mass/Vol] 0.68 mg/dL Low 0.73-1.22 [facility] Comment on above: Order Comment: Speci men Type: BLOOD SPECIMEN Performed By: #### 2 4321-2, 2776-05, ####[facility]ORATORYCLIA [id number] [place] [address] [place] GFR/1.73 sq M.predicted MDRD (S/P/Bld) [Vol rate/Area] mL/min/{1.73_m2} Normal [facility] Comment on above: Order Comment: [...] GFR. Performed By: #### 2 4321-2, 2776-05, ####[facility] [id number] [place] [address] [place] Glucose [Mass/Vol] 146 mg/dL High 74-99 [facility] Comment on above: Order Comment: Speci men Type: BLOOD SPECIMEN Result Comment: The [place] Diabetes Association (ADA) provides guidance for cutoff [...] Standards of Medical Care in Diabetes 2016, [place] [employer]. Diabetes Care. 2016.39(Suppl 1). Performed By: #### 2 4321-2, 2776-05, ####[facility]ORATORYCLIA [id number] [place] [address] [place] Potassium [Moles/Vol] 3.6 mmol/L Low 3.7-5.1 [facility] Comment on above: Order Comment: Speci men Type: BLOOD SPECIMEN Performed By: #### 2 4321-2, 2776-05, ####[facility]ORATORYCLIA [id number] [place] [address] [place] Sodium [Moles/Vol] 148 mmol/L High 136-144 [facility] Comment on above: Order Comment: Speci men Type: BLOOD SPECIMEN Performed By: #### 2 4321-2, 277-1, ####[facility]ORATORYCLIA [id number] [address] Urea nitrogen [Mass/Vol] 36 mg/dL High 9-24 [facility] Comment on above: Order Comment: Speci men Type: BLOOD SPECIMEN Performed By: #### 2 4321-2, 2776-, ####[facility]ORATORYCLIA [id number] [address] CASE MANAGEMon 06-08-2021 CASE MANAGEM Normal [facility] CBC panel Auto (Bld)on 06-08 Erythrocyte distribution width (RBC) [Ratio] 16.0 % High 11.5-15.0 [facility] Comment on above: Order Comment: Speci men Type: BLOOD SPECIMEN Performed By: #### 5 8410-2 ####[facility]ORATORYCLIA [id number] [address] Hematocrit (Bld) [Volume fraction] 38.4 % Low 39.0-51.0 [facility] Comment on above: Order Comment: Speci men Type: BLOOD SPECIMEN Performed By: #### 5 8410-2 ####[facility]ORATORYCLIA [id number] [address] Hemoglobin (Bld) [Mass/Vol] 12.1 g/dL Low 13.0-17.0 [facility] Comment on above: Order Comment: Speci men Type: BLOOD SPECIMEN Performed By: #### 5 8410-2 ####[facility]ORATORYCLIA [id number] [address] MCH (RBC) [Entitic mass] 28.3 pg Normal 26.0-34.0 [facility] Comment on above: Order Comment: Speci men Type: BLOOD SPECIMEN Performed By: #### 5 8410-2 ####[facility]ORATORYCLIA [id number] [address] MCHC (RBC) [Mass/Vol] 31.5 g/dL Normal 30.5-36.0 [facility] Comment on above: Order Comment: Speci men Type: BLOOD SPECIMEN Performed By: #### 5 8410-2 ####[facility]ORATORYCLIA [id number] [address] MCV (RBC) [Entitic vol] 89.9 fL Normal 80.0-100.0 [facility] Comment on above: Order Comment: Speci men Type: BLOOD SPECIMEN Performed By: #### 5 8410-2 ####[facility]ORATORYCLIA [id number] [address] Nucleated RBC (Bld) [#/Vol] 10*3/uL Normal <0.01 [facility] Comment on above: Order Comment: Speci men Type: BLOOD SPECIMEN Performed By: #### 5 8410-2 ####[facility]ORATORYCLIA [id number] [address] Platelet mean volume (Bld) [Entitic vol] 10.3 fL Normal 9.0-12.7 [facility] Comment on above: Order Comment: Speci men Type: BLOOD SPECIMEN Performed By: #### 5 8410-2 ####[facility] LABORATORYCLIA [id number] [address] Platelets (Bld) [#/Vol] 236 10*3/uL Normal 150-400 [facility] Comment on above: Order Comment: Speci men Type: BLOOD SPECIMEN Performed By: #### 5 8410-2 ####[facility]ATORYCLIA [id number] [address] RBC (Bld) [#/Vol] 4.27 10*6/uL Normal 4.20-6.00 [facility] Comment on above: Order Comment: Speci men Type: BLOOD SPECIMEN Performed By: #### 5 8410-2 ####[facility]ORATORYCLIA [id number] [address] WBC (Bld) [#/Vol] 11.06 10*3/uL High 3.70-11.00 [facility] Comment on above: Order Comment: Speci men Type: BLOOD SPECIMEN Performed By: #### 5 8410-2 ####[facility]ORATORYCLIA [id number] [address] CONSULT PROGon 06-08-2021 CONSULT PROG Normal [facility] CT BRAIN WO IVCONon 06-08-19 CT BRAIN WO IVCON [facility] Magnesium SerPl-mCncon 06-08 Magnesium [Mass/Vol] 2.8 mg/dL High 1.7-2.3 [facility] Comment on above: Order Comment: Speci men Type: BLOOD SPECIMEN Performed By: #### 2 4321-2, 2777-1, 57568-1 ####[facility] LABORATORYCLIA [id number] [address] Microorganism Spec Culton Microorganism identified Cx Nom (Unsp spec) CULTURE, FUNGAL: No Fungus isolated after 28 days FUNGAL SMEAR: No fungus seen [facility] Comment on above: Performed By: #### 1 1475-1 ####[facility] LABORATORYCLIA [id number] [address] NURSING PROGon 06-08-2021 NURSING PROG Normal [facility] OPERATIVE NOon 06-08-2021 OPERATIVE NO Normal [facility] OPERATIVE NO [facility] PT panel Coag (PPP)on 2021 INR Coag (PPP) [Relative time] 1.1 {INR} Normal 0.9-1.3 [facility] Comment on above: Order Comment: Speci men Type: BLOOD SPECIMEN Result Comment: Yris min K Antagonist (VKA) Therapeutic Range: INR 2 to 3 (Target INR of 2.5)Note: For patients treated with VKA drugs, such as warfarin, the [employer] [employer] 2012 Guideline recommends [...] al. Chest 2012, 141:7S-47SNishmariangel RA, et al. [employer] 2017, 70: 252-289 Performed By: #### 3 4528-0, 41750-2 ####[facility] LABORATORYCLIA [id number] [address] PT Coag (PPP) [Time] 11.9 s Normal 9.7-13.0 [facility] Comment on above: Order Comment: Speci men Type: BLOOD SPECIMEN Performed By: #### 3 4528-0, 72243-3 ####[facility] LABORATORYCLIA [id number] [address] Phosphate SerPl-mCncon 06-08 Phosphate [Mass/Vol] 2.3 mg/dL Low 2.7-4.8 [facility] Comment on above: Order Comment: Speci men Type: BLOOD SPECIMEN Performed By: #### 2 4321-2, 2777-1, 61546-8 ####[facility] LABORATORYCLIA [id number] [address] aPTT PPPon 06-08-2021 aPTT Coag (PPP) [Time] 24.2 s Normal 23.0-32.4 [facility] Comment on above: Order Comment: Speci men Type: BLOOD SPECIMEN Performed By: #### 3 4528-0, 82363-3 ####[facility] LABORATORYCLIA [id number] [address] ALLIED HEALTHon 06-07-2021 ALLIED HEALTH Normal [facility] ALLIED HEALTH Normal [facility] ALLIED HEALTH Normal [facility] Bacteria CSF Culton 06-07-19 22 Bacteria identified Cx Nom (CSF) CULTURE, CSF: No growth 14 days GRAM STAIN: No organisms seen Rare Mononuclear cells Rare Polymorphonuclear leukocytes Gram stain performed on cytospun specimen. Normal [facility] Comment on above: Performed By: #### 6 06-4 ####[facility] LABORATORYCLIA [id number] [address] OF [facility] Basic metabolic 2000 panelon 06-07-2021 Anion gap [Moles/Vol] 9 mmol/L Normal 9-18 [facility] Comment on above: Order Comment: Speci men Type: BLOOD SPECIMEN Performed By: #### 1 9123-9, 2777-1, 09977-3 ####[facility] LABORATORYCLIA [id number] [place] [address] [place] Calcium [Mass/Vol] 8.8 mg/dL Normal 8.5-10.2 [facility] Comment on above: Order Comment: Speci men Type: BLOOD SPECIMEN Performed By: #### 1 9123-9, 2776-, 03180-3 ####[facility] LABORATORYCLIA [id number] [place] [address] [place] Chloride [Moles/Vol] 111 mmol/L High 97-105 [facility] Comment on above: Order Comment: Speci men Type: BLOOD SPECIMEN Performed By: #### 1 9123-9, 2776-1, 79335-3 ####[facility] LABORATORYCLIA [id number] [place] [address] [place] CO2 [Moles/Vol] 27 mmol/L Normal 22-30 [facility] Comment on above: Order Comment: Speci men Type: BLOOD SPECIMEN Performed By: #### 1 9123-9, 2777-1, 13929-9 ####[facility] LABORATORYCLIA [id number] [place] [address] [place] Creatinine [Mass/Vol] 0.66 mg/dL Low 0.73-1.22 [facility] Comment on above: Order Comment: [facility] Type: BLOOD SPECIMEN Performed By: #### 1 9123-9, 2777-1, 95258-2 ####[facility] LABORATORYCLIA [id number] [address] [place] GFR/1.73 sq M.predicted MDRD (S/P/Bld) [Vol rate/Area] mL/min/{1.73_m2} Normal [facility] Comment on above: Order Comment: [facility] Type: BLOOD SPECIMEN Result Comment: >60e [...] GFR. Performed By: #### 1 9123-9, 2777-1, 83184-4 ####[facility] LABORATORYCLIA [id number] [place] [address] [place] Glucose [Mass/Vol] 123 mg/dL High 74-99 [facility] Comment on above: Order Comment: [facility] Type: BLOOD SPECIMEN Result Comment: The [place] Diabetes Association (ADA) provides guidance for cutoff [...] Standards of Medical Care in Diabetes 2016, [place] Diabetes Association. Diabetes Care. 2016.39(Suppl 1). Performed By: #### 1 9123-9, 2777-, 40802-1 ####[facility] LABORATORYCLIA [id number] [address] Potassium [Moles/Vol] 3.6 mmol/L Low 3.7-5.1 [facility] Comment on above: Order Comment: Speci men Type: BLOOD SPECIMEN Performed By: #### 1 9123-9, 2777, 33257-5 ####[facility] LABORATORYCLIA [id number] [address] Sodium [Moles/Vol] 147 mmol/L High 136-144 [facility] Comment on above: Order Comment: Speci men Type: BLOOD SPECIMEN Performed By: #### 1 9123-9, 2777, 52207-6 ####[facility] LABORATORYCLIA [id number] [address] Urea nitrogen [Mass/Vol] 30 mg/dL High 9-24 [facility] Comment on above: Order Comment: Speci men Type: BLOOD SPECIMEN Performed By: #### 1 9123-9, 2777, 41276-9 ####[facility] LABORATORYCLIA [id number] [address] CBC W Auto Differential pane l (Bld)on 06-07-2021 Basophils (Bld) [#/Vol] 10*3/uL Normal <0.11 [facility] Comment on above: Order Comment: Speci men Type: BLOOD SPECIMEN Performed By: #### 5 7021-8 ####[facility] LABORATORYCLIA [id number] [address] Basophils/100 WBC (Bld) 0.2 % Normal [facility] Comment on above: Order Comment: Speci men Type: BLOOD SPECIMEN Performed By: #### 5 7021-8 ####[facility] LABORATORYCLIA [id number] [address] Differential cell count method Nom (Bld) Auto Normal [facility] Comment on above: Order Comment: Speci men Type: BLOOD SPECIMEN Performed By: #### 5 7021-8 ####[facility] LABORATORYCLIA [id number] [address] Eosinophils (Bld) [#/Vol] 0.06 10*3/uL Normal <0.46 [facility] Comment on above: Order Comment: Speci men Type: BLOOD SPECIMEN Performed By: #### 5 7021-8 ####[facility] LABORATORYCLIA [id number] [address] Eosinophils/100 WBC (Bld) 0.6 % Normal [facility] Comment on above: Order Comment: Speci men Type: BLOOD SPECIMEN Performed By: #### 5 7021-8 ####[facility] LABORATORYCLIA [id number] [address] Erythrocyte distribution width (RBC) [Ratio] 15.8 % High 11.5-15.0 [facility] Comment on above: Order Comment: Speci men Type: BLOOD SPECIMEN Performed By: #### 5 7021-8 ####[facility] LABORATORYCLIA [id number] [address] Hematocrit (Bld) [Volume fraction] 40.4 % Normal 39.0-51.0 [facility] Comment on above: Order Comment: Speci men Type: BLOOD SPECIMEN Performed By: #### 5 7021-8 ####[facility] LABORATORYCLIA [id number] [address] Hemoglobin (Bld) [Mass/Vol] 12.4 g/dL Low 13.0-17.0 [facility] Comment on above: Order Comment: Speci men Type: BLOOD SPECIMEN Performed By: #### 5 7021-8 ####[facility] LABORATORYCLIA [id number] [address] IMMATURE GRAN % 0.7 % Normal [facility] Comment on above: Order Comment: Speci men Type: BLOOD SPECIMEN Performed By: #### 5 7021-8 ####[facility] LABORATORYCLIA [id number] [address] IMMATURE GRAN ABS 0.07 k/uL Normal <0.10 [facility] Comment on above: Order Comment: Speci men Type: BLOOD SPECIMEN Performed By: #### 5 7021-8 ####[facility] LABORATORYCLIA [id number] [address] Lymphocytes (Bld) [#/Vol] 1.43 10*3/uL Normal 1.00-4.00 [facility] Comment on above: Order Comment: Speci men Type: BLOOD SPECIMEN Performed By: #### 5 7021-8 ####[facility] LABORATORYCLIA [id number] [address] Lymphocytes/100 WBC (Bld) 14.1 % Normal [facility] Comment on above: Order Comment: Speci men Type: BLOOD SPECIMEN Performed By: #### 5 7021-8 ####[facility] LABORATORYCLIA [id number] [address] MCH (RBC) [Entitic mass] 27.6 pg Normal 26.0-34.0 [facility] Comment on above: Order Comment: Speci men Type: BLOOD SPECIMEN Performed By: #### 5 7021-8 ####[facility] LABORATORYCLIA [id number] [address] MCHC (RBC) [Mass/Vol] 30.7 g/dL Normal 30.5-36.0 [facility] Comment on above: Order Comment: Speci men Type: BLOOD SPECIMEN Performed By: #### 5 7021-8 ####[facility] LABORATORYCLIA [id number] [address] MCV (RBC) [Entitic vol] 89.8 fL Normal 80.0-100.0 [facility] Comment on above: Order Comment: Speci men Type: BLOOD SPECIMEN Performed By: #### 5 7021-8 ####[facility] LABORATORYCLIA [id number] [place], [place] [address] [place] [address] [place] Monocytes (Bld) [#/Vol] 0.82 10*3/uL Normal <0.87 [facility] Comment on above: Order Comment: Speci men Type: BLOOD SPECIMEN Performed By: #### 5 7021-8 ####[facility] LABORATORYCLIA [id number] [address] Monocytes/100 WBC (Bld) 8.1 % Normal [facility] Comment on above: Order Comment: Speci men Type: BLOOD SPECIMEN Performed By: #### 5 7021-8 ####[facility] LABORATORYCLIA [id number] [address] Neutrophils (Bld) [#/Vol] 7.74 10*3/uL High 1.45-7.50 [facility] Comment on above: Order Comment: Speci men Type: BLOOD SPECIMEN Performed By: #### 5 7021-8 ####[facility] LABORATORYCLIA [id number] [address] Neutrophils/100 WBC (Bld) 76.3 % Normal [facility] Comment on above: Order Comment: Speci men Type: BLOOD SPECIMEN Performed By: #### 5 7021-8 ####[facility] LABORATORYCLIA [id number] [address] OF [facility] Nucleated RBC (Bld) [#/Vol] 10*3/uL Normal <0.01 [facility] Comment on above: Order Comment: Speci men Type: BLOOD SPECIMEN Performed By: #### 5 7021-8 ####[facility] LABORATORYCLIA [id number] [address] Nucleated RBC/100 WBC (Bld) [Ratio] 0.0 /100 WBC Normal 0.0 [facility] Comment on above: Order Comment: Speci men Type: BLOOD SPECIMEN Performed By: #### 5 7021-8 ####[facility] LABORATORYCLIA [id number] [address] Platelet mean volume (Bld) [Entitic vol] 10.4 fL Normal 9.0-12.7 [facility] Comment on above: Order Comment: Speci men Type: BLOOD SPECIMEN Performed By: #### 5 7021-8 ####[facility] LABORATORYCLIA [id number] [address] Platelets (Bld) [#/Vol] 236 10*3/uL Normal 150-400 [facility] Comment on above: Order Comment: Speci men Type: BLOOD SPECIMEN Performed By: #### 5 7021-8 ####[facility] LABORATORYCLIA [id number] [address] RBC (Bld) [#/Vol] 4.50 10*6/uL Normal 4.20-6.00 [facility] Comment on above: Order Comment: Speci men Type: BLOOD SPECIMEN Performed By: #### 5 7021-8 ####[facility] LABORATORYCLIA [id number] [address] WBC (Bld) [#/Vol] 10.14 10*3/uL Normal 3.70-11.00 [facility] Comment on above: Order Comment: Speci men Type: BLOOD SPECIMEN Performed By: #### 5 7021-8 ####[facility] LABORATORYCLIA [id number] [address] CBC panel Auto (Bld)on 06-07 Erythrocyte distribution width (RBC) [Ratio] 15.8 % High 11.5-15.0 [facility] Comment on above: Order Comment: Speci men Type: BLOOD SPECIMEN Performed By: #### 5 8410-2 ####[facility] LABORATORYCLIA [id number] [address] Hematocrit (Bld) [Volume fraction] 40.0 % Normal 39.0-51.0 [facility] Comment on above: Order Comment: Speci men Type: BLOOD SPECIMEN Performed By: #### 5 8410-2 ####[facility] LABORATORYCLIA [id number] [address] Hemoglobin (Bld) [Mass/Vol] 12.3 g/dL Low 13.0-17.0 [facility] Comment on above: Order Comment: Speci men Type: BLOOD SPECIMEN Performed By: #### 5 8410-2 ####[facility] LABORATORYCLIA [id number] [address] MCH (RBC) [Entitic mass] 27.3 pg Normal 26.0-34.0 [facility] Comment on above: Order Comment: Speci men Type: BLOOD SPECIMEN Performed By: #### 5 8410-2 ####[facility] LABORATORYCLIA [id number] [address] MCHC (RBC) [Mass/Vol] 30.8 g/dL Normal 30.5-36.0 [facility] Comment on above: Order Comment: Speci men Type: BLOOD SPECIMEN Performed By: #### 5 8410-2 ####[facility] LABORATORYCLIA [id number] [address] MCV (RBC) [Entitic vol] 88.7 fL Normal 80.0-100.0 [facility] Comment on above: Order Comment: Speci men Type: BLOOD SPECIMEN Performed By: #### 5 8410-2 ####[facility] LABORATORYCLIA [id number] [address] Nucleated RBC (Bld) [#/Vol] 10*3/uL Normal <0.01 [facility] Comment on above: Order Comment: Speci men Type: BLOOD SPECIMEN Performed By: #### 5 8410-2 ####[facility] LABORATORYCLIA [id number] [address] Platelet mean volume (Bld) [Entitic vol] 10.0 fL Normal 9.0-12.7 [facility] Comment on above: Order Comment: Speci men Type: BLOOD SPECIMEN Performed By: #### 5 8410-2 ####[facility] LABORATORYCLIA [id number] [address] STATES OF [facility] Platelets (Bld) [#/Vol] 234 10*3/uL Normal 150-400 [facility] Comment on above: Order Comment: Speci men Type: BLOOD SPECIMEN Performed By: #### 5 8410-2 ####[facility] LABORATORYCLIA [id number] [address] [place] RBC (Bld) [#/Vol] 4.51 10*6/uL Normal 4.20-6.00 [facility] Comment on above: Order Comment: Speci men Type: BLOOD SPECIMEN Performed By: #### 5 8410-2 ####[facility] LABORATORYCLIA [id number] [address] OF [facility] WBC (Bld) [#/Vol] 11.47 10*3/uL High 3.70-11.00 [facility] Comment on above: Order Comment: Speci men Type: BLOOD SPECIMEN Performed By: #### 5 8410-2 ####[facility] LABORATORYCLIA [id number] [address] CONSULT PROGon 06-07-2021 CONSULT PROG Normal [facility] CONSULT PROG Normal [facility] CSF MANUAL DIFFon 06-07-2021 DIF TTL, CSF 92 cells counted Normal [facility] Comment on above: Order Comment: Speci men Type: CEREBROSPINAL FLUID Performed By: #### 3 4563-7, [id number], [id number] ####[facility] LABORATORYCLIA [id number] [address] OF [place] EOSIN%, CSF 1 % Normal [facility] Comment on above: Order Comment: Speci men Type: CEREBROSPINAL FLUID Performed By: #### 3 4563-7, [id number], [id number] ####[facility] LABORATORYCLIA [id number] [address] [place] LYMPH%, CSF 21 % Low 50-90 [facility] Comment on above: Order Comment: Speci men Type: CEREBROSPINAL FLUID Performed By: #### 3 4563-7, [id number], [id number] ####[facility] LABORATORYCLIA [id number] [address] OF [place] MACRO%, CSF 27 % High <1 [facility] Comment on above: Order Comment: Speci men Type: CEREBROSPINAL FLUID Result Comment: Tati ected result: Previously reported as 22 % on 06/07/2021 at 1:49 PM EST. Performed By: #### 3 4563-7, [id number], [id number] ####[facility] LABORATORYCLIA [id number] [address] OF [place] MONO%, CSF 36 % Normal 10-50 [facility] Comment on above: Order Comment: Speci men Type: CEREBROSPINAL FLUID Performed By: #### 3 4563-7, [id number], [id number] ####[facility] LABORATORYCLIA [id number] [address] NEUT%, CSF 11 % High 0-3 [facility] Comment on above: Order Comment: Speci men Type: CEREBROSPINAL FLUID Performed By: #### 3 4563-7, [id number], [id number] ####[facility] LABORATORYCLIA [id number] [address] OTHER CL%, CSF 4 % Normal [facility] Comment on above: Order Comment: Speci men Type: CEREBROSPINAL FLUID Result Comment: Path review to follow.Corrected result: Previously reported as 10 % on 06/07/2021 at 1:49 PM EST. Performed By: #### 3 4563-7, [id number], [id number] ####[facility] LABORATORYCLIA [id number] [address] CSF PATHOLOGIST INTERP (LAB REFLEX ORDER-NO BILL)on 06-07-2021 CSF STAFF REVIEW Negative for maligna nt cells. Rare immature myeloid or ventricular lining cells. Normal [facility] Comment on above: Order Comment: Speci men Type: CEREBROSPINAL FLUID Performed By: #### 3 4563-7, [id number], [id number] ####[facility] LABORATORYCLIA [id number] [place], [place] [address] [place] [address] Pathologist name Reviewed by Eloise rebolledo MD [facility] Comment on above: Order Comment: Speci men Type: CEREBROSPINAL FLUID Performed By: #### 3 4563-7, [id number], [id number] ####[facility] LABORATORYCLIA [id number] [place], [place] [address] [place] [address] CT BRAIN WO IVCONon 06-07-19 CT BRAIN WO IVCON Normal [facility] CT BRAIN WO IVCON Normal [facility] Cell count panel (CSF)on Clarity (CSF) Clear Normal Clear [facility] Comment on above: Order Comment: Speci men Type: CEREBROSPINAL FLUID Performed By: #### 3 4563-7, [id number], [id number] ####[facility]ORATORYCLIA [id number] [place], [place] [address] [place] [address] Clarity (Unsp spec) Not Indicated Normal Clear [facility] Comment on above: Order Comment: Speci men Type: CEREBROSPINAL FLUID Performed By: #### 3 4563-7, [id number], [id number] ####[facility] LABORATORYCLIA [id number] [place], [place] [address] [place] [address] Color (CSF) Colorless Normal Colorless [facility] Comment on above: Order Comment: Speci men Type: CEREBROSPINAL FLUID Performed By: #### 3 4563-7, [id number], PBE2649 ####[facility] LABORATORYCLIA [id number] [place], [place] [address] [place] [address] Color (Spun CSF) Not Indicated Normal Colorless [facility] Comment on above: Order Comment: Speci men Type: CEREBROSPINAL FLUID Performed By: #### 3 4563-7, [id number], [id number] ####[facility] LABORATORYCLIA [id number] [place], [place] [address] [place] [address] CSF TUBE NUMBER [employer] Normal [facility] Comment on above: Order Comment: Speci men Type: CEREBROSPINAL FLUID Performed By: #### 3 4563-7, [id number], RQP2620 ####[facility] LABORATORYCLIA [id number] [address] RBC Manual cnt (CSF) [#/Vol] 42 cells/uL High 0-5 [facility] Comment on above: Order Comment: Speci men Type: CEREBROSPINAL FLUID Performed By: #### 3 4563-7, [id number], [id number] ####[facility] LABORATORYCLIA [id number] [address] WBC Manual cnt (CSF) [#/Vol] 1 cells/uL Normal 0-5 [facility] Comment on above: Order Comment: Speci men Type: CEREBROSPINAL FLUID Performed By: #### 3 4563-7, [id number], [id number] ####[facility] LABORATORYCLIA [id number] [address] Glucose CSF-mCncon Glucose (CSF) [Mass/Vol] 92 mg/dL High 40-70 [facility] Comment on above: Order Comment: Speci men Type: CEREBROSPINAL FLUID Result Comment: Lumb ar CSF glucose values of healthy patients are approximately 60% of the plasma values and must always be compared with a concurrently measured plasma value for adequate clinical interpretation.References: 1. Glucose HK (GLUC3) [package insert V 12.0 Armenian]. [employer], [place], [place]. September 2015. 2. Michelle Moore, Loki, H. (2015). Chapter 7: Glucose and Lactate. Marianela Alcocer al.(eds.), Cerebrospinal Fluid in Clinical Neurology. Miner: [employer]. Performed By: #### 2 880-3, 2342-4 ####[facility] LABORATORYCLIA [id number] [address] Lactate (Bld) [Moles/Vol]on 06-07-2021 Lactate [Moles/Vol] 0.9 mmol/L Normal 0.5-2.2 [facility] Comment on above: Order Comment: Speci men Type: BLOOD SPECIMEN Performed By: #### 3 2693-4 ####[facility] LABORATORYCLIA [id number] [address] Lipase SerPl-cCncon 06-07-19 22 Lipase [Catalytic activity/Vol] 35 U/L Normal 16-61 [facility] Comment on above: Order Comment: Speci men Type: BLOOD SPECIMEN Performed By: #### 3 040-3, PROCAL ####[facility] LABORATORYCLIA [id number] [address] Magnesium SerPl-mCncon 06-07 Magnesium [Mass/Vol] 2.7 mg/dL High 1.7-2.3 [facility] Comment on above: Order Comment: Speci men Type: BLOOD SPECIMEN Performed By: #### 1 9123-9, 2777-1, 77214-0 ####[facility] LABORATORYCLIA [id number] [address] PROCALCITONIN (LAB)on 2021 Procalcitonin [Mass/Vol] 0.13 ng/mL High <0.09 [facility] Comment on above: Order Comment: Speci men Type: BLOOD SPECIMEN Result Comment: For a guided interpretation of test results, please visit the Change in Procalcitonin Calculator, [email or web address]. Performed By: #### 3 040-3, PROCAL ####[facility] LABORATORYCLIA [id number] [address] Phosphate SerPl-mCncon 06-07 Phosphate [Mass/Vol] 1.9 mg/dL Low 2.7-4.8 [facility] Comment on above: Order Comment: Speci men Type: BLOOD SPECIMEN Performed By: #### 1 9123-9, 2777-1, 09063-4 ####[facility] LABORATORYCLIA [id number] [address] OF [facility] Prot CSF-mCncon 06-07-2021 Protein (CSF) [Mass/Vol] 33 mg/dL Normal 15-45 [facility] Comment on above: Order Comment: Speci men Type: CEREBROSPINAL FLUID Performed By: #### 2 880-3, 2342-4 ####[facility] LABORATORYCLIA [id number] [address] SARS-CoV-2 RNA Resp Ql MEGAN+p robeon 06-07-2021 SARS-CoV-2 (COVID-19) RNA MEGAN+probe Ql (Resp) COVID 19 RESULT: SARS-CoV-2 (Agent of COVID-19) Not Detected by PCR. This test has been authorized by FDA under an Emergency Use Authorization (EUA). Normal [facility] Comment on above: Performed By: #### 9 4500-6 ####[facility] LABORATORYCLIA [id number] [address] TYPE AND SCREENon 06-07-2021 ABO O Normal [facility] Comment on above: Order Comment: Speci men Type: BLOOD SPECIMEN Performed By: #### T SCR ####[facility] BLOOD BANKCLIA [id number] [address] HISTORICAL AB SCR STATUS Negative Normal [facility] Comment on above: Order Comment: Speci men Type: BLOOD SPECIMEN Performed By: #### T SCR ####[facility] BLOOD BANKCLIA [id number] [address] Rh Nom (Bld) Positive Normal [facility] Comment on above: Order Comment: Speci men Type: BLOOD SPECIMEN Performed By: #### T SCR ####[facility] BLOOD BANKCLIA [id number] [address] TYPE AND SCREEN EXPIRATION 06/10/2021 23:59 Normal [facility] Comment on above: Order Comment: Speci men Type: BLOOD SPECIMEN Performed By: #### T SCR ####[facility] BLOOD BANKCLIA [id number] [address] Vancomycin random [Mass/Vol] on 06-07-2021 Vancomycin [Mass/Vol] 16.5 ug/mL Normal 10.0-20.0 [facility] Comment on above: Order Comment: Speci men Type: BLOOD SPECIMEN Result Comment: Refe rence ranges and high/low indicator flags are provided as general guidelines only. The treating physician must determine appropriate target levels/dosing based on the specific clinical situation. Performed By: #### 4 091-5 ####[facility] LABORATORYCLIA [id number] [address] STATES OF [facility] XR CHEST 1V FRONTAL PORTon 0 06-07-2021 XR CHEST 1V FRONTAL PORT Normal [facility] Basic metabolic 2000 panelon 06-06-2021 Anion gap [Moles/Vol] 11 mmol/L Normal 9-18 [facility] Comment on above: Order Comment: Speci men Type: BLOOD SPECIMEN Performed By: #### 2 4321-2, , 2776-05 ####[facility] LABORATORYCLIA [id number] [address] STATES OF [facility] Calcium [Mass/Vol] 8.6 mg/dL Normal 8.5-10.2 [facility] Comment on above: Order Comment: Speci men Type: BLOOD SPECIMEN Performed By: #### 2 4321-2, , 2776-05 ####[facility] LABORATORYCLIA [id number] [address] STATES OF [facility] Chloride [Moles/Vol] 108 mmol/L High 97-105 [facility] Comment on above: Order Comment: Speci men Type: BLOOD SPECIMEN Performed By: #### 2 4321-2, , 2776-05 ####[facility]ATORYCLIA [id number] [address] STATES OF [facility] CO2 [Moles/Vol] 25 mmol/L Normal 22-30 [facility] Comment on above: Order Comment: Speci men Type: BLOOD SPECIMEN Performed By: #### 2 4321-2, , 2776-05 ####[facility]ATORYCLIA [id number] [address] OF [facility] Creatinine [Mass/Vol] 0.76 mg/dL Normal 0.73-1.22 [facility] Comment on above: Order Comment: Speci [facility] Type: BLOOD SPECIMEN Performed By: #### 2 4321-2, , 2776-05 ####[facility] LABORATORYCLIA [id number] [place] [id number] [place] GFR/1.73 sq M.predicted MDRD (S/P/Bld) [Vol rate/Area] mL/min/{1.73_m2} Normal [facility] Comment on above: Order Comment: [...] 2 4321-2, , 2776-05 ####[facility] LABORATORYCLIA [id number] [place] [id number] [place] Glucose [Mass/Vol] 116 mg/dL High 74-99 [facility] Comment on above: Order Comment: Speci men Type: BLOOD SPECIMEN Result Comment: The [place] Diabetes [employer] (ADA) provides guidance for cutoff [...] Standards of Medical Care in Diabetes 2016, [place] [employer]. Diabetes Care. 2016.39(Suppl 1). Performed By: #### 2 4321-2, , 2776-05 ####[facility] LABORATORYCLIA [id number] [address] STATES [facility] Potassium [Moles/Vol] 3.5 mmol/L Low 3.7-5.1 [facility] Comment on above: Order Comment: Speci men Type: BLOOD SPECIMEN Performed By: #### 2 4321-2, , 2776-05 ####[facility] LABORATORYCLIA [id number] [address] STATES [facility] Sodium [Moles/Vol] 144 mmol/L Normal 136-144 [facility] Comment on above: Order Comment: Speci men Type: BLOOD SPECIMEN Performed By: #### 2 4321-2, , 2776-05 ####[facility] LABORATORYCLIA [id number] [address] [place] [facility] Urea nitrogen [Mass/Vol] 31 mg/dL High 9-24 [facility] Comment on above: Order Comment: Speci men Type: BLOOD SPECIMEN Performed By: #### 2 4321-2, , 2776-05 ####[facility] LABORATORYCLIA [id number] [address] OF [facility] CASE MANAGEMon 06-06-2021 CASE MANAGEM Normal [facility] CBC panel Auto (Bld)on 06-06 Erythrocyte distribution width (RBC) [Ratio] 15.8 % High 11.5-15.0 [facility] Comment on above: Order Comment: Speci men Type: BLOOD SPECIMEN Performed By: #### 5 8410-2 ####[facility] LABORATORYCLIA [id number] [address] Hematocrit (Bld) [Volume fraction] 39.5 % Normal 39.0-51.0 [facility] Comment on above: Order Comment: Speci men Type: BLOOD SPECIMEN Performed By: #### 5 8410-2 ####[facility] LABORATORYCLIA [id number] [address] Hemoglobin (Bld) [Mass/Vol] 12.2 g/dL Low 13.0-17.0 [facility] Comment on above: Order Comment: Speci men Type: BLOOD SPECIMEN Performed By: #### 5 8410-2 ####[facility] LABORATORYCLIA [id number] [address] MCH (RBC) [Entitic mass] 27.8 pg Normal 26.0-34.0 [facility] Comment on above: Order Comment: Speci men Type: BLOOD SPECIMEN Performed By: #### 5 8410-2 ####[facility] LABORATORYCLIA [id number] [address] MCHC (RBC) [Mass/Vol] 30.9 g/dL Normal 30.5-36.0 [facility] Comment on above: Order Comment: Speci men Type: BLOOD SPECIMEN Performed By: #### 5 8410-2 ####[facility] LABORATORYCLIA [id number] [address] MCV (RBC) [Entitic vol] 90.0 fL Normal 80.0-100.0 [facility] Comment on above: Order Comment: Speci men Type: BLOOD SPECIMEN Performed By: #### 5 8410-2 ####[facility] LABORATORYCLIA [id number] [address] Nucleated RBC (Bld) [#/Vol] 10*3/uL Normal <0.01 [facility] Comment on above: Order Comment: Speci men Type: BLOOD SPECIMEN Performed By: #### 5 8410-2 ####[facility]ORATORYCLIA [id number] [address] Platelet mean volume (Bld) [Entitic vol] 10.4 fL Normal 9.0-12.7 [facility] Comment on above: Order Comment: Speci men Type: BLOOD SPECIMEN Performed By: #### 5 8410-2 ####[facility] LABORATORYCLIA [id number] [address] OF [facility] Platelets (Bld) [#/Vol] 236 10*3/uL Normal 150-400 [facility] Comment on above: Order Comment: Speci men Type: BLOOD SPECIMEN Performed By: #### 5 8410-2 ####[facility] LABORATORYCLIA [id number] [address] OF [facility] RBC (Bld) [#/Vol] 4.39 10*6/uL Normal 4.20-6.00 [facility] Comment on above: Order Comment: Speci men Type: BLOOD SPECIMEN Performed By: #### 5 8410-2 ####[facility] LABORATORYCLIA [id number] [address] WBC (Bld) [#/Vol] 9.74 10*3/uL Normal 3.70-11.00 [facility] Comment on above: Order Comment: Speci men Type: BLOOD SPECIMEN Performed By: #### 5 8410-2 ####[facility] LABORATORYCLIA [id number] [address] CONSULT PROGon 06-06-2021 CONSULT PROG Normal [facility] CONSULT PROG Normal [facility] Magnesium SerPl-mCncon 06-06 Magnesium [Mass/Vol] 2.5 mg/dL High 1.7-2.3 [facility] Comment on above: Order Comment: Speci men Type: BLOOD SPECIMEN Performed By: #### 2 4321-2, 73792-3, 2777-1 ####[facility] LABORATORYCLIA [id number] [address] PT panel Coag (PPP)on 2021 INR Coag (PPP) [Relative time] 1.0 {INR} Normal 0.9-1.3 [facility] Comment on above: Order Comment: Speci men Type: BLOOD SPECIMEN Result Comment: Yris min K Antagonist (VKA) Therapeutic Range: INR 2 to 3 (Target INR of 2.5)Note: For patients treated with VKA drugs, such as warfarin, the [place] [employer] 2012 Guideline recommends [...] al. Chest 2012, 141:7S-47SNishimura RA, et al. [employer] 2017, 70: 252-289 Performed By: #### 3 4528-0, 79579-6 ####[facility] LABORATORYCLIA [id number] [address] OF [facility] PT Coag (PPP) [Time] 11.4 s Normal 9.7-13.0 [facility] Comment on above: Order Comment: Speci men Type: BLOOD SPECIMEN Performed By: #### 3 4528-0, 99883-6 ####[facility] LABORATORYCLIA [id number] [address] [place] Phosphate SerPl-mCncon 06-06 Phosphate [Mass/Vol] 2.3 mg/dL Low 2.7-4.8 [facility] Comment on above: Order Comment: Speci men Type: BLOOD SPECIMEN Performed By: #### 2 4321-2, 88905-6, 2777-1 ####[facility] LABORATORYCLIA [id number] [address] OF [facility] THROMBOGRAPH HEPARINASE PANE Kiel 06-06-2021 Clot angle after addition of heparinase TEG (Bld) [Angle] 70.2 degrees Normal 47.0-74.0 [facility] Comment on above: Order Comment: Speci men Type: BLOOD SPECIMEN Performed By: #### T EGHPP ####[facility] LABORATORYCLIA [id number] [address] Clot Lysis 30 Min post maximum clot amplitude TEG (Bld) [Length fraction] 0.0 % Normal 0.0-8.0 [facility] Comment on above: Order Comment: Speci men Type: BLOOD SPECIMEN Performed By: #### T EGHPP ####[facility] LABORATORYCLIA [id number] [address] Clotting time after addition of heparinase TEG (Bld) 5.7 minutes Normal 4.0-10.0 [facility] Comment on above: Order Comment: Speci men Type: BLOOD SPECIMEN Performed By: #### T EGHPP ####[facility] CENTERIA [id number] [address] Coagulation index TEG Qn (Bld) 1.2 Normal -4.6-3.2 [facility] Comment on above: Order Comment: Speci men Type: BLOOD SPECIMEN Result Comment: The Coagulation Index, a secondary parameter, is labeled by the floor assembler as for "research use only" and is used per the floor assembler's instructions. Its performance characteristics were determined by [facility]'s Isrrael [facility] [place] in a manner consistent with CLIA requirements. This test has not been cleared by the U.S. Food and Drug Administration. Performed By: #### T EGHPP ####[facility] LABORATORYCLIA [id number] [address] Maximum clot firmness after addition of heparinase TEG (Bld) [Length] 64.0 mm Normal 51.0-75.0 [facility] Comment on above: Order Comment: Speci men Type: BLOOD SPECIMEN Performed By: #### T EGHPP ####[facility] LABORATORYCLIA [id number] [address] Vancomycin random [Mass/Vol] on 06-06-2021 Vancomycin [Mass/Vol] 17.4 ug/mL Normal 10.0-20.0 [facility] Comment on above: Order Comment: Speci men Type: BLOOD SPECIMEN Result Comment: Refe rence ranges and high/low indicator flags are provided as general guidelines only. The treating physician must determine appropriate target levels/dosing based on the specific clinical situation. Performed By: #### 4 091-5 ####[facility]ORATORYCLIA [id number] [address] STATES [facility] Vancomycin [Mass/Vol] 13.5 ug/mL Normal 10.0-20.0 [facility] Comment on above: Order Comment: Speci men Type: BLOOD SPECIMEN Result Comment: Refe rence ranges and high/low indicator flags are provided as general guidelines only. The treating physician must determine appropriate target levels/dosing based on the specific clinical situation. Performed By: #### 4 091-5 ####[facility]ORATORYCLIA [id number] [address] aPTT PPPon 06-06-2021 aPTT Coag (PPP) [Time] 27.8 s Normal 23.0-32.4 [facility] Comment on above: Order Comment: Speci men Type: BLOOD SPECIMEN Performed By: #### 3 4528-0, 08746-9 ####[facility] LABORATORYCLIA [id number] [address] Basic metabolic 2000 panelon 06-05-2021 Anion gap [Moles/Vol] 11 mmol/L Normal 9-18 [facility] Comment on above: Order Comment: Speci men Type: BLOOD SPECIMEN Performed By: #### 1 9123-9, 96890-1, 2776-05 ####[facility] LABORATORYCLIA [id number] [address] STATES [facility] Calcium [Mass/Vol] 8.6 mg/dL Normal 8.5-10.2 [facility] Comment on above: Order Comment: Speci men Type: BLOOD SPECIMEN Performed By: #### 1 9123-9, 37637-4, 2776-05 ####[facility]ORATORYCLIA [id number] [address] Chloride [Moles/Vol] 108 mmol/L High 97-105 [facility] Comment on above: Order Comment: Speci men Type: BLOOD SPECIMEN Performed By: #### 1 9123-9, 58700-0, 2776-05 ####[facility]ORATORYCLIA [id number] [place] [address] [place] CO2 [Moles/Vol] 25 mmol/L Normal 22-30 [facility] Comment on above: Order Comment: Speci men Type: BLOOD SPECIMEN Performed By: #### 1 9, , 2776-05 ####[facility]ORATORYCLIA [id number] [address] [place] Creatinine [Mass/Vol] 0.77 mg/dL Normal 0.73-1.22 [facility] Comment on above: Order Comment: Speci men Type: BLOOD SPECIMEN Performed By: #### 1 239, , 2776-05 ####[facility]ORATORYCLIA [id number] [address] [place] GFR/1.73 sq M.predicted MDRD (S/P/Bld) [Vol rate/Area] mL/min/{1.73_m2} Normal [facility] Comment on above: Order Comment: [...] actual GFR. Performed By: #### 1 9123-9, 67931-6, 2776-05 ####[facility]ORATORYCLIA [id number] [address] [place] Glucose [Mass/Vol] 96 mg/dL Normal 74-99 [facility] Comment on above: Order Comment: Speci men Type: BLOOD SPECIMEN Result Comment: The [place] Diabetes Association (ADA) provides guidance for cutoff [...] Standards of Medical Care in Diabetes 2016, [place] [employer]. Diabetes Care. 2016.39(Suppl 1). Performed By: #### 1 9123-9, 24340-9, 2776-05 ####[facility]ORATORYCLIA [id number] [address] STATES OF [facility] Potassium [Moles/Vol] 3.9 mmol/L Normal 3.7-5.1 [facility] Comment on above: Order Comment: Speci men Type: BLOOD SPECIMEN Performed By: #### 1 23-9, 73319-8, 2776-05 ####[facility]ORATORYCLIA [id number] [address] Sodium [Moles/Vol] 144 mmol/L Normal 136-144 [facility] Comment on above: Order Comment: Speci men Type: BLOOD SPECIMEN Performed By: #### 1 23-9, , 2776-05 ####[facility]ORATORYCLIA [id number] [address] [place] Urea nitrogen [Mass/Vol] 26 mg/dL High 9-24 [facility] Comment on above: Order Comment: Speci men Type: BLOOD SPECIMEN Performed By: #### 1 9123-9, 92138-4, 2776-05 ####[facility]ORATORYCLIA [id number] [address] OF [facility] CBC panel Auto (Bld)on 06-05 Erythrocyte distribution width (RBC) [Ratio] 15.9 % High 11.5-15.0 [facility] Comment on above: Order Comment: Speci men Type: BLOOD SPECIMEN Performed By: #### 5 8410-2 ####[facility]ORATORYCLIA [id number] [address] Hematocrit (Bld) [Volume fraction] 39.6 % Normal 39.0-51.0 [facility] Comment on above: Order Comment: Speci men Type: BLOOD SPECIMEN Performed By: #### 5 8410-2 ####[facility]ATORYCLIA [id number] [address] Hemoglobin (Bld) [Mass/Vol] 12.3 g/dL Low 13.0-17.0 [facility] Comment on above: Order Comment: Speci men Type: BLOOD SPECIMEN Performed By: #### 5 8410-2 ####[facility]ORATORYCLIA [id number] [address] MCH (RBC) [Entitic mass] 28.1 pg Normal 26.0-34.0 [facility] Comment on above: Order Comment: Speci men Type: BLOOD SPECIMEN Performed By: #### 5 8410-2 ####[facility]ORATORYCLIA [id number] [address] MCHC (RBC) [Mass/Vol] 31.1 g/dL Normal 30.5-36.0 [facility] Comment on above: Order Comment: Speci men Type: BLOOD SPECIMEN Performed By: #### 5 8410-2 ####[facility]ATORYCLIA [id number] [address] MCV (RBC) [Entitic vol] 90.4 fL Normal 80.0-100.0 [facility] Comment on above: Order Comment: Speci men Type: BLOOD SPECIMEN Performed By: #### 5 8410-2 ####[facility]ORATORYCLIA [id number] [address] Nucleated RBC (Bld) [#/Vol] 10*3/uL Normal <0.01 [facility] Comment on above: Order Comment: Speci men Type: BLOOD SPECIMEN Performed By: #### 5 8410-2 ####[facility]ORATORYCLIA [id number] [address] Platelet mean volume (Bld) [Entitic vol] 10.5 fL Normal 9.0-12.7 [facility] Comment on above: Order Comment: Speci men Type: BLOOD SPECIMEN Performed By: #### 5 8410-2 ####[facility]ORATORYCLIA [id number] [address] Platelets (Bld) [#/Vol] 224 10*3/uL Normal 150-400 [facility] Comment on above: Order Comment: Speci men Type: BLOOD SPECIMEN Performed By: #### 5 8410-2 ####[facility]ATORYCLIA [id number] [address] RBC (Bld) [#/Vol] 4.38 10*6/uL Normal 4.20-6.00 [facility] Comment on above: Order Comment: Speci men Type: BLOOD SPECIMEN Performed By: #### 5 8410-2 ####[facility]ATORYCLIA [id number] [address] WBC (Bld) [#/Vol] 9.66 10*3/uL Normal 3.70-11.00 [facility] Comment on above: Order Comment: Speci men Type: BLOOD SPECIMEN Performed By: #### 5 8410-2 ####[facility]ATORYCLIA [id number] [address] CONSULT PROGon 06-05-2021 CONSULT PROG Normal [facility] Gas and Carbon monoxide pane l (BldV)on 06-05-2021 Base excess Calc (BldV) [Moles/Vol] 1.8 mmol/L Normal 0-2 [facility] Comment on above: Order Comment: Speci men Type: VENOUS BLOOD SPECIMEN Performed By: #### 2 4344-4 ####[facility]ORYCLIA [id number] [address] Body temperature 100.4 [degF] Normal [facility] Comment on above: Order Comment: Speci men Type: VENOUS BLOOD SPECIMEN Performed By: #### 2 4344-4 ####[facility]ORYCLIA [id number] [address] CALCIUM IONIZED, PH CORRECTED 1.21 mmol/L Normal 1.08-1.30 [facility] Comment on above: Order Comment: Speci men Type: VENOUS BLOOD SPECIMEN Performed By: #### 2 4344-4 ####[facility]ORATORYCLIA [id number] [address] Calcium.ionized (BldV) [Mass/Vol] 1.19 mmol/L Normal 1.08-1.30 [facility] Comment on above: Order Comment: Speci men Type: VENOUS BLOOD SPECIMEN Performed By: #### 2 4344-4 ####[facility]ORATORYCLIA [id number] [address] Carboxyhemoglobin (BldV) [Mass fraction] 1.0 % Normal 0.0-2.0 [facility] Comment on above: Order Comment: Speci men Type: VENOUS BLOOD SPECIMEN Result Comment: Carb oxyhemoglobin Reference Range for Smokers: 2.0-8.0% Performed By: #### 2 4344-4 ####[facility]ORYCLIA [id number] [address] CO2 (BldV) [Partial pressure] 41 mm[Hg] Low 42-55 [facility] Comment on above: Order Comment: Speci men Type: VENOUS BLOOD SPECIMEN Performed By: #### 2 4344-4 ####[facility]ORYCLIA [id number] [address] CO2 [Moles/Vol] 23.4 mmol/L Low 25-29 [facility] Comment on above: Order Comment: Speci men Type: VENOUS BLOOD SPECIMEN Performed By: #### 2 4344-4 ####[facility]ATORYCLIA [id number] [address] CO2 adjusted to patient's actual temperature (BldV) [Partial pressure] 43 mmHg Normal 42-55 [facility] Comment on above: Order Comment: Speci men Type: VENOUS BLOOD SPECIMEN Performed By: #### 2 4344-4 ####[facility]ORYCLIA [id number] [address] Glucose [Mass/Vol] 101 mg/dL Normal 60-105 [facility] Comment on above: Order Comment: Speci men Type: VENOUS BLOOD SPECIMEN Performed By: #### 2 4344-4 ####[facility]ORYCLIA [id number] [address] HCO3 (Bld) [Moles/Vol] 26.0 mmol/L Normal 24-[address] [facility] Comment on above: Order Comment: Speci men Type: VENOUS BLOOD SPECIMEN Performed By: #### 2 4344-4 ####[facility]ORYCLIA [id number] [address] Hematocrit (Bld) [Volume fraction] 38.4 % Low 39.0-51.0 [facility] Comment on above: Order Comment: Speci men Type: VENOUS BLOOD SPECIMEN Performed By: #### 2 4344-4 ####[facility]ORYCLIA [id number] [address] Hemoglobin (Bld) [Mass/Vol] 12.5 g/dL Low 13.0-17.0 [facility] Comment on above: Order Comment: Speci men Type: VENOUS BLOOD SPECIMEN Performed By: #### 2 4344-4 ####[facility]ORYCLIA [id number] [address] [place] Methemoglobin (Bld) [Mass fraction] % Normal 0.0-1.5 [facility] Comment on above: Order Comment: Speci men Type: VENOUS BLOOD SPECIMEN Performed By: #### 2 4344-4 ####[facility]ATORYCLIA [id number] [place] [address] [facility] O2 THERAPY Ventilator Normal [facility] Comment on above: Order Comment: Speci men Type: VENOUS BLOOD SPECIMEN Performed By: #### 2 4344-4 ####[facility]ORYCLIA [id number] [place] [address] [facility] Oxygen (BldV) [Partial pressure] 44 mm[Hg] Normal 35-45 [facility] Comment on above: Order Comment: Speci men Type: VENOUS BLOOD SPECIMEN Performed By: #### 2 4344-4 ####[facility]ORYCLIA [id number] [place], [place] [address] [place] [address] Oxygen adjusted to patient's actual temperature (BldV) [Partial pressure] 46.8 mmHg High 35-45 [facility] Comment on above: Order Comment: Speci men Type: VENOUS BLOOD SPECIMEN Performed By: #### 2 4344-4 ####[facility]ORYCLIA [id number] [place], [place] [address] [place] [address] [place] Oxygen saturation in Blood 76.5 % Normal 60-85 [facility] Comment on above: Order Comment: Speci men Type: VENOUS BLOOD SPECIMEN Performed By: #### 2 4344-4 ####[facility]ORYCLIA [id number] [place] [address] [place] [address] [place] Oxyhemoglobin (BldV) [Mass fraction] 75 % Normal 60-85 [facility] Comment on above: Order Comment: Speci men Type: VENOUS BLOOD SPECIMEN Performed By: #### 2 4344-4 ####[facility]ORYCLIA [id number] [place] [address] [facility] [place] pH (BldV) 7.42 [pH] Normal 7.32-7.42 [facility] Comment on above: Order Comment: Speci men Type: VENOUS BLOOD SPECIMEN Performed By: #### 2 4344-4 ####[facility]ORYCLIA [id number] [address] pH adjusted to patient's actual temperature (BldV) 7.40 Normal 7.32-7.42 [facility] Comment on above: Order Comment: Speci men Type: VENOUS BLOOD SPECIMEN Performed By: #### 2 4344-4 ####[facility]ATORYCLIA [id number] [address] [place] Potassium [Moles/Vol] 3.7 mmol/L Normal 3.5-5.0 [facility] Comment on above: Order Comment: Speci men Type: VENOUS BLOOD SPECIMEN Performed By: #### 2 4344-4 ####[facility]ATORYCLIA [id number] [address] [place] [facility] Sodium [Moles/Vol] 141 mmol/L Normal 136-144 [facility] Comment on above: Order Comment: Speci men Type: VENOUS BLOOD SPECIMEN Performed By: #### 2 4344-4 ####[facility]ORATORYCLIA [id number] [address] [place] Magnesium SerPl-mCncon 06-05 Magnesium [Mass/Vol] 2.3 mg/dL Normal 1.7-2.3 [facility] Comment on above: Order Comment: Speci men Type: BLOOD SPECIMEN Performed By: #### 1 9123-9, 62390-2, 2777-1 ####[facility]ATORYCLIA [id number] [address] [place] Phosphate SerPl-mCncon 06-05 Phosphate [Mass/Vol] 2.9 mg/dL Normal 2.7-4.8 [facility] Comment on above: Order Comment: Speci men Type: BLOOD SPECIMEN Performed By: #### 1 9123-9, 38482-4, 2777-1 ####[facility]ORATORYCLIA [id number] [address] [place] Vancomycin random [Mass/Vol] on 06-05-2021 Vancomycin [Mass/Vol] 23.2 ug/mL High 10.0-20.0 [facility] Comment on above: Order Comment: Speci men Type: BLOOD SPECIMEN Result Comment: Refe rence ranges and high/low indicator flags are provided as general guidelines only. The treating physician must determine appropriate target levels/dosing based on the specific clinical situation. Performed By: #### 4 091-5 ####[facility] LABORATORYCLIA [id number] [place] [address] [place] (1,3)-E-W-BPQSACad 2 (1,3) B-D GLUCAN <31 Normal <60 [facility] Comment on above: Order Comment: Speci men Type: BLOOD SPECIMEN Performed By: #### B DGLUC ####[facility] REFERENCE LABCLIA [id number] [place] [address] [place] (1,3) B-D GLUCAN, QUAL Negative Normal NEGAT [facility] Comment on above: Order Comment: Speci men Type: BLOOD SPECIMEN Result Comment: Cert ain fungi, such as the genus Cryptococcus which produces very low levels of (1,3)-ytqn-G-zcbjvu, may not result in serum (1,3)-bxgj-R-hpcbri sufficiently elevated so as to be detected by the assay. Infections with fungi of the order Mucorales such as Absidia, Mucor and Rhizopus which are not known to produce (1,3)-bekj-I-sokpeh, are also observed to yield low serum (1,3)-gzyc-D-uzlthb titers.In addition, the yeast phase of Blastomyces dermatitidis produces little (1,3)-iidr-G-klneux and may not be detected by the assay. Performed By: #### B DGLUC ####[facility] REFERENCE LABCLIA [id number] [employer] [id number] [place] [address] [place] ALLIED HEALTHon 06-04-2021 ALLIED HEALTH Normal [facility] ALLIED HEALTH Normal [facility] ARTERIAL BLOOD GASESon 06-04 Base excess Calc (Bld) [Moles/Vol] 3 mmol/L High 0-2 [facility] Comment on above: Order Comment: Speci men Type: ARTERIAL BLOOD SPECIMEN Performed By: #### A LLBG ####[facility] LABORATORYCLIA [id number] [address] Body temperature 98.06 [degF] Normal [facility] Comment on above: Order Comment: Speci men Type: ARTERIAL BLOOD SPECIMEN Performed By: #### A LLBG ####[facility] LABORATORYCLIA [id number] [address] CALCIUM IONIZED, PH CORRECTED 1.19 mmol/L Normal 1.08-1.30 [facility] Comment on above: Order Comment: Speci men Type: ARTERIAL BLOOD SPECIMEN Performed By: #### A LLBG ####[facility] LABORATORYCLIA [id number] [address] Calcium.ionized (BldV) [Mass/Vol] 1.14 mmol/L Normal 1.08-1.30 [facility] Comment on above: Order Comment: Speci men Type: ARTERIAL BLOOD SPECIMEN Performed By: #### A LLBG ####[facility] LABORATORYCLIA [id number] [address] Carboxyhemoglobin (BldA) [Mass fraction] 1.2 % Normal 0.0-2.0 [facility] Comment on above: Order Comment: Speci men Type: ARTERIAL BLOOD SPECIMEN Result Comment: Carb oxyhemoglobin Reference Range for Smokers: 2.0-8.0% Performed By: #### A LLBG ####[facility] LABORATORYCLIA [id number] [address] CO2 (Bld) [Partial pressure] 35 mm Hg Low 36-46 [facility] Comment on above: Order Comment: Speci men Type: ARTERIAL BLOOD SPECIMEN Performed By: #### A LLBG ####[facility] LABORATORYCLIA [id number] [address] CO2 [Moles/Vol] 23.2 mmol/L Normal 22-28 [facility] Comment on above: Order Comment: Speci men Type: ARTERIAL BLOOD SPECIMEN Performed By: #### A LLBG ####[facility]ORATORYCLIA [id number] [address] CO2 adjusted to patient's actual temperature (Bld) [Partial pressure] 34 mmHg Low 36-46 [facility] Comment on above: Order Comment: Speci men Type: ARTERIAL BLOOD SPECIMEN Performed By: #### A LLBG ####[facility]ORATORYCLIA [id number] [address] Glucose [Mass/Vol] 115 mg/dL High 60-105 [facility] Comment on above: Order Comment: Speci men Type: ARTERIAL BLOOD SPECIMEN Performed By: #### A LLBG ####[facility]ORATORYCLIA [id number] [address] HCO3 (Bld) [Moles/Vol] 26 mmol/L Normal 22-26 [facility] Comment on above: Order Comment: Speci men Type: ARTERIAL BLOOD SPECIMEN Performed By: #### A LLBG ####[facility]ORATORYCLIA [id number] [address] Hematocrit (Bld) [Volume fraction] 35.3 % Low 39.0-51.0 [facility] Comment on above: Order Comment: Speci men Type: ARTERIAL BLOOD SPECIMEN Performed By: #### A LLBG ####[facility]ORATORYCLIA [id number] [address] Hemoglobin (Bld) [Mass/Vol] 11.5 g/dL Low 13.0-17.0 [facility] Comment on above: Order Comment: Speci men Type: ARTERIAL BLOOD SPECIMEN Performed By: #### A LLBG ####[facility]ORATORYCLIA [id number] [address] Methemoglobin (Bld) [Mass fraction] % Normal 0.0-1.5 [facility] Comment on above: Order Comment: Speci men Type: ARTERIAL BLOOD SPECIMEN Performed By: #### A LLBG ####[facility]ORATORYCLIA [id number] [place] [address] [place] [address] [place] O2 THERAPY Ventilator Normal [facility] Comment on above: Order Comment: Speci men Type: ARTERIAL BLOOD SPECIMEN Performed By: #### A LLBG ####[facility]ORATORYCLIA [id number] [place], [place] [address] [place] [address] [place] Oxygen (Bld) [Partial pressure] 66 mm Hg Low 85-95 [facility] Comment on above: Order Comment: Speci men Type: ARTERIAL BLOOD SPECIMEN Performed By: #### A LLBG ####[facility]ORATORYCLIA [id number] [address] Oxygen adjusted to patient's actual temperature (Bld) [Partial pressure] 64.3 mmHg Low 85-95 [facility] Comment on above: Order Comment: Speci men Type: ARTERIAL BLOOD SPECIMEN Performed By: #### A LLBG ####[facility]ORATORYCLIA [id number] [address] OXYGEN SATURATION, ARTERIAL 95 % Normal 95-98 [facility] Comment on above: Order Comment: Speci men Type: ARTERIAL BLOOD SPECIMEN Performed By: #### A LLBG ####[facility]ORATORYCLIA [id number] [address] Oxyhemoglobin (BldA) [Mass fraction] 93 % Low 95-98 [facility] Comment on above: Order Comment: Speci men Type: ARTERIAL BLOOD SPECIMEN Performed By: #### A LLBG ####[facility]ORATORYCLIA [id number] [place], [place] [address] [place] [address] [place] pH (Bld) 7.49 [pH] High 7.35-7.45 [facility] Comment on above: Order Comment: Speci men Type: ARTERIAL BLOOD SPECIMEN Performed By: #### A LLBG ####[facility]ORATORYCLIA [id number] [address] [place] pH adjusted to patient's actual temperature (Bld) 7.49 High 7.35-7.45 [facility] Comment on above: Order Comment: Speci men Type: ARTERIAL BLOOD SPECIMEN Performed By: #### A LLBG ####[facility] LABORATORYCLIA [id number] [address] Potassium [Moles/Vol] 2.8 mmol/L Low 3.5-5.0 [facility] Comment on above: Order Comment: Speci men Type: ARTERIAL BLOOD SPECIMEN Performed By: #### A LLBG ####[facility] LABORATORYCLIA [id number] [address] Bas Metab 2000 Pnl SerPlon 0 06-04-2021 Sodium [Moles/Vol] 143 mmol/L Normal 136-144 [facility] Comment on above: Order Comment: Speci men Type: BLOOD SPECIMEN Performed By: #### 2 777-1, , ####[facility] LABORATORYCLIA [id number] [address] Order Comment: Speci men Type: ARTERIAL BLOOD SPECIMEN Performed By: #### A LLBG ####[facility] LABORATORYCLIA [id number] [address] Basic metabolic 2000 panelon 06-04-2021 Anion gap [Moles/Vol] 11 mmol/L Normal 9-18 [facility] Comment on above: Order Comment: Speci men Type: BLOOD SPECIMEN Performed By: #### 2 777-1, , ####[facility] LABORATORYCLIA [id number] [address] Calcium [Mass/Vol] 8.5 mg/dL Normal 8.5-10.2 [facility] Comment on above: Order Comment: Speci men Type: BLOOD SPECIMEN Performed By: #### 2 777-1, , ####[facility]ORATORYCLIA [id number] [address] OF [facility] Chloride [Moles/Vol] 107 mmol/L High 97-105 [facility] Comment on above: Order Comment: Speci men Type: BLOOD SPECIMEN Performed By: #### 2 777-1, , ####[facility] LABORATORYCLIA [id number] [address] STATES OF [facility] CO2 [Moles/Vol] 25 mmol/L Normal 22-30 [facility] Comment on above: Order Comment: Speci men Type: BLOOD SPECIMEN Performed By: #### 2 777-1, , ####[facility] LABORATORYCLIA [id number] [address] [place] Creatinine [Mass/Vol] 0.77 mg/dL Normal 0.73-1.22 [facility] Comment on above: Order Comment: Speci men Type: BLOOD SPECIMEN Performed By: #### 2 777-1, , ####[facility] LABORATORYCLIA [id number] [address] [place] GFR/1.73 sq M.predicted MDRD (S/P/Bld) [Vol rate/Area] mL/min/{1.73_m2} Normal [facility] Comment on above: Order Comment: [...] #### 2 777-1, , ####[facility] LABORATORYCLIA [id number] [address] [place] Glucose [Mass/Vol] 107 mg/dL High 74-99 [facility] Comment on above: Order Comment: Speci men Type: BLOOD SPECIMEN Result Comment: The [place] Diabetes Association (ADA) provides guidance for cutoff [...] Standards of Medical Care in Diabetes 2016, [place] [employer]. Diabetes Care. 2016.39(Suppl 1). Performed By: #### 2 777-1, , ####[facility] LABORATORYCLIA [id number] [address] STATES OF [facility] Potassium [Moles/Vol] 3.1 mmol/L Low 3.7-5.1 [facility] Comment on above: Order Comment: Speci men Type: BLOOD SPECIMEN Performed By: #### 2 777-1, , ####[facility] LABORATORYCLIA [id number] [address] Urea nitrogen [Mass/Vol] 19 mg/dL Normal 9-24 [facility] Comment on above: Order Comment: Speci men Type: BLOOD SPECIMEN Performed By: #### 2 777-1, , ####[facility] LABORATORYCLIA [id number] [address] CBC panel Auto (Bld)on 06-04 Erythrocyte distribution width (RBC) [Ratio] 15.8 % High 11.5-15.0 [facility] Comment on above: Order Comment: Speci men Type: BLOOD SPECIMEN Performed By: #### 5 8410-2 ####[facility] LABORATORYCLIA [id number] [address] Hematocrit (Bld) [Volume fraction] 36.9 % Low 39.0-51.0 [facility] Comment on above: Order Comment: Speci men Type: BLOOD SPECIMEN Performed By: #### 5 8410-2 ####[facility] LABORATORYCLIA [id number] [address] Hemoglobin (Bld) [Mass/Vol] 11.2 g/dL Low 13.0-17.0 [facility] Comment on above: Order Comment: Speci men Type: BLOOD SPECIMEN Performed By: #### 5 8410-2 ####[facility] LABORATORYCLIA [id number] [address] MCH (RBC) [Entitic mass] 27.3 pg Normal 26.0-34.0 [facility] Comment on above: Order Comment: Speci men Type: BLOOD SPECIMEN Performed By: #### 5 8410-2 ####[facility] LABORATORYCLIA [id number] [address] MCHC (RBC) [Mass/Vol] 30.4 g/dL Low 30.5-36.0 [facility] Comment on above: Order Comment: Speci men Type: BLOOD SPECIMEN Performed By: #### 5 8410-2 ####[facility] LABORATORYCLIA [id number] [address] MCV (RBC) [Entitic vol] 89.8 fL Normal 80.0-100.0 [facility] Comment on above: Order Comment: Speci men Type: BLOOD SPECIMEN Performed By: #### 5 8410-2 ####[facility] LABORATORYCLIA [id number] [address] Nucleated RBC (Bld) [#/Vol] 10*3/uL Normal <0.01 [facility] Comment on above: Order Comment: Speci men Type: BLOOD SPECIMEN Performed By: #### 5 8410-2 ####[facility] LABORATORYCLIA [id number] [address] Platelet mean volume (Bld) [Entitic vol] 10.7 fL Normal 9.0-12.7 [facility] Comment on above: Order Comment: Speci men Type: BLOOD SPECIMEN Performed By: #### 5 8410-2 ####[facility] LABORATORYCLIA [id number] [address] Platelets (Bld) [#/Vol] 174 10*3/uL Normal 150-400 [facility] Comment on above: Order Comment: Speci men Type: BLOOD SPECIMEN Performed By: #### 5 8410-2 ####[facility] LABORATORYCLIA [id number] [address] OF [facility] RBC (Bld) [#/Vol] 4.11 10*6/uL Low 4.20-6.00 [facility] Comment on above: Order Comment: Speci men Type: BLOOD SPECIMEN Performed By: #### 5 8410-2 ####[facility] LABORATORYCLIA [id number] [address] WBC (Bld) [#/Vol] 8.29 10*3/uL Normal 3.70-11.00 [facility] Comment on above: Order Comment: Speci men Type: BLOOD SPECIMEN Performed By: #### 5 8410-2 ####[facility] LABORATORYCLIA [id number] [address] CONSULT PROGon 06-04-2021 CONSULT PROG Normal [facility] CT BRAIN WO IVCONon 06-04-19 CT BRAIN WO IVCON Normal [facility] CT CHEST W IVCON PEon 2021 CT CHEST W IVCON PE Normal [facility] Magnesium SerPl-mCncon 06-04 Magnesium [Mass/Vol] 2.2 mg/dL Normal 1.7-2.3 [facility] Comment on above: Order Comment: Speci men Type: BLOOD SPECIMEN Performed By: #### 2 777-1, 31129-6, 81478-4 ####[facility] LABORATORYCLIA [id number] [address] NT-proBNP SerPl-mCncon 06-04 Natriuretic peptide.B prohormone N-Terminal [Mass/Vol] 229 pg/mL High <125 [facility] Comment on above: Order Comment: Speci men Type: BLOOD SPECIMEN Performed By: #### 3 3762-6, 4091-5 ####[facility] LABORATORYCLIA [id number] [address] STATES OF [facility] Phosphate SerPl-mCncon 06-04 Phosphate [Mass/Vol] 2.0 mg/dL Low 2.7-4.8 [facility] Comment on above: Order Comment: Speci men Type: BLOOD SPECIMEN Performed By: #### 2 777-1, 38367-4, 01836-4 ####[facility] LABORATORYCLIA [id number] [address] Vancomycin random [Mass/Vol] on 06-04-2021 Vancomycin [Mass/Vol] 35.2 ug/mL High 10.0-20.0 [facility] Comment on above: Order Comment: Speci men Type: BLOOD SPECIMEN Result Comment: Refe rence ranges and high/low indicator flags are provided as general guidelines only. The treating physician must determine appropriate target levels/dosing based on the specific clinical situation. Performed By: #### 3 3762-6, 4091-5 ####[facility] LABORATORYCLIA [id number] [address] OF [facility] XR ABDOMEN 1V SUPINEon 06-04 XR ABDOMEN 1V SUPINE Normal [facility] ALLIED HEALTHon 06-03-2021 ALLIED HEALTH Normal [facility] ARTERIAL BLOOD GASESon 06-03 Base excess Calc (Bld) [Moles/Vol] 5 mmol/L High 0-2 [facility] Comment on above: Order Comment: Speci men Type: ARTERIAL BLOOD SPECIMEN Performed By: #### A LLBG ####[facility] LABORATORYCLIA [id number] [address] Body temperature 99.5 [degF] Normal [facility] Comment on above: Order Comment: Speci men Type: ARTERIAL BLOOD SPECIMEN Performed By: #### A LLBG ####[facility] LABORATORYCLIA [id number] [address] CALCIUM IONIZED, PH CORRECTED 1.18 mmol/L Normal 1.08-1.30 [facility] Comment on above: Order Comment: Speci men Type: ARTERIAL BLOOD SPECIMEN Performed By: #### A LLBG ####[facility]ORATORYCLIA [id number] [address] Calcium.ionized (BldV) [Mass/Vol] 1.16 mmol/L Normal 1.08-1.30 [facility] Comment on above: Order Comment: Speci men Type: ARTERIAL BLOOD SPECIMEN Performed By: #### A LLBG ####[facility] LABORATORYCLIA [id number] [address] Carboxyhemoglobin (BldA) [Mass fraction] 1.2 % Normal 0.0-2.0 [facility] Comment on above: Order Comment: Speci men Type: ARTERIAL BLOOD SPECIMEN Result Comment: Carb oxyhemoglobin Reference Range for Smokers: 2.0-8.0% Performed By: #### A LLBG ####[facility] LABORATORYCLIA [id number] [address] CO2 (Bld) [Partial pressure] 45 mm Hg Normal 36-46 [facility] Comment on above: Order Comment: Speci men Type: ARTERIAL BLOOD SPECIMEN Performed By: #### A LLBG ####[facility] LABORATORYCLIA [id number] [address] CO2 [Moles/Vol] 26.9 mmol/L Normal 22-28 [facility] Comment on above: Order Comment: Speci men Type: ARTERIAL BLOOD SPECIMEN Performed By: #### A LLBG ####[facility]ATORYCLIA [id number] [address] CO2 adjusted to patient's actual temperature (Bld) [Partial pressure] 47 mmHg High 36-46 [facility] Comment on above: Order Comment: Speci men Type: ARTERIAL BLOOD SPECIMEN Performed By: #### A LLBG ####[facility]ATORYCLIA [id number] [address] Glucose [Mass/Vol] 141 mg/dL High 60-105 [facility] Comment on above: Order Comment: Speci men Type: ARTERIAL BLOOD SPECIMEN Performed By: #### A LLBG ####[facility]ATORYCLIA [id number] [address] HCO3 (Bld) [Moles/Vol] 30 mmol/L High 22-26 [facility] Comment on above: Order Comment: Speci men Type: ARTERIAL BLOOD SPECIMEN Performed By: #### A LLBG ####[facility] LABORATORYCLIA [id number] [address] Hematocrit (Bld) [Volume fraction] 35.8 % Low 39.0-51.0 [facility] Comment on above: Order Comment: Speci men Type: ARTERIAL BLOOD SPECIMEN Performed By: #### A LLBG ####[facility] LABORATORYCLIA [id number] [address] Hemoglobin (Bld) [Mass/Vol] 11.6 g/dL Low 13.0-17.0 [facility] Comment on above: Order Comment: Speci men Type: ARTERIAL BLOOD SPECIMEN Performed By: #### A LLBG ####[facility]ORYCLIA [id number] [address] Methemoglobin (Bld) [Mass fraction] % Normal 0.0-1.5 [facility] Comment on above: Order Comment: Speci men Type: ARTERIAL BLOOD SPECIMEN Performed By: #### A LLBG ####[facility]ORYCLIA [id number] [address] O2 THERAPY Ventilator Normal [facility] Comment on above: Order Comment: Speci men Type: ARTERIAL BLOOD SPECIMEN Performed By: #### A LLBG ####[facility]ORATORYCLIA [id number] [place], [place] [address] [place] [address] OF [facility] Oxygen (Bld) [Partial pressure] 69 mm Hg Low 85-95 [facility] Comment on above: Order Comment: Speci men Type: ARTERIAL BLOOD SPECIMEN Performed By: #### A LLBG ####[facility]ATORYCLIA [id number] [place], [place] [id number] [place] [address] Oxygen adjusted to patient's actual temperature (Bld) [Partial pressure] 70.8 mmHg Low 85-95 [facility] Comment on above: Order Comment: Speci men Type: ARTERIAL BLOOD SPECIMEN Performed By: #### A LLBG ####[facility] LABORATORYCLIA [id number] [address] OXYGEN SATURATION, ARTERIAL 94 % Low 95-98 [facility] Comment on above: Order Comment: Speci men Type: ARTERIAL BLOOD SPECIMEN Performed By: #### A LLBG ####[facility] LABORATORYCLIA [id number] [address] Oxyhemoglobin (BldA) [Mass fraction] 93 % Low 95-98 [facility] Comment on above: Order Comment: Speci men Type: ARTERIAL BLOOD SPECIMEN Performed By: #### A LLBG ####[facility] LABORATORYCLIA [id number] [address] [place] pH (Bld) 7.43 [pH] Normal 7.35-7.45 [facility] Comment on above: Order Comment: Speci men Type: ARTERIAL BLOOD SPECIMEN Performed By: #### A LLBG ####[facility]ORYCLIA [id number] [address] OF [facility] pH adjusted to patient's actual temperature (Bld) 7.43 Normal 7.35-7.45 [facility] Comment on above: Order Comment: Speci men Type: ARTERIAL BLOOD SPECIMEN Performed By: #### A LLBG ####[facility]ORYCLIA [id number] [address] Potassium [Moles/Vol] 3.1 mmol/L Low 3.5-5.0 [facility] Comment on above: Order Comment: Speci men Type: ARTERIAL BLOOD SPECIMEN Performed By: #### A LLBG ####[facility] LABORATORYCLIA [id number] [address] [place] Sodium [Moles/Vol] 145 mmol/L High 136-144 [facility] Comment on above: Order Comment: Speci men Type: ARTERIAL BLOOD SPECIMEN Performed By: #### A LLBG ####[facility] LABORATORYCLIA [id number] [address] [place] ASPERGILLUS GALACTOMANNAN SE RUMon 06-03-2021 Galactomannan Ag IA Ql Negative Normal NEGAT [facility] Comment on above: Order Comment: Speci [...] is suspected. Performed By: #### A SGALS ####[facility] LABCLIA [id number] [facility] [address] [place] Galactomannan Ag IA Qn <0.50 Normal [facility] Comment on above: Order Comment: Speci men Type: BLOOD SPECIMEN Result Comment: Inde x Values are Interpreted as Follows:Negative specimens <0.50Positive specimens >=0.50 Performed By: #### A SGALS ####[facility] REFERENCE LABCLIA [id number] [place] [facility] [address] [address] [place] Basic metabolic 2000 panelon 06-03-2021 Anion gap [Moles/Vol] 8 mmol/L Low 9-18 [facility] Comment on above: Order Comment: Speci men Type: BLOOD SPECIMEN Performed By: #### 1 9123-9, 2777-1, 37167-7 ####[facility] LABORATORYCLIA [id number] [address] Calcium [Mass/Vol] 8.0 mg/dL Low 8.5-10.2 [facility] Comment on above: Order Comment: Speci men Type: BLOOD SPECIMEN Performed By: #### 1 9123-9, 2777-1, 08705-6 ####[facility] LABORATORYCLIA [id number] [address] OF [facility] Chloride [Moles/Vol] 110 mmol/L High 97-105 [facility] Comment on above: Order Comment: Speci men Type: BLOOD SPECIMEN Performed By: #### 1 9123-9, 2777-, 35842-2 ####[facility] LABORATORYCLIA [id number] [address] CO2 [Moles/Vol] 28 mmol/L Normal 22-30 [facility] Comment on above: Order Comment: Speci men Type: BLOOD SPECIMEN Performed By: #### 1 9123-9, 2777, 56727-7 ####[facility] LABORATORYCLIA [id number] [address] OF [facility] Creatinine [Mass/Vol] 0.75 mg/dL Normal 0.73-1.22 [facility] Comment on above: Order Comment: Speci men Type: BLOOD SPECIMEN Performed By: #### 1 9123-9, 2777-, 55799-6 ####[facility] LABORATORYCLIA [id number] [address] [place] GFR/1.73 sq M.predicted MDRD (S/P/Bld) [Vol rate/Area] mL/min/{1.73_m2} Normal [facility] Comment on above: Order Comment: [...] GFR. Performed By: #### 1 9123-9, 2776-, 20016-7 ####[facility] LABORATORYCLIA [id number] [place] [address] [place] Glucose [Mass/Vol] 141 mg/dL High 74-99 [facility] Comment on above: Order Comment: Speci men Type: BLOOD SPECIMEN Result Comment: The [place] Diabetes [employer] (ADA) provides guidance for cutoff [...] Standards of Medical Care in Diabetes 2016, [place] [employer]. Diabetes Care. 2016.39(Suppl 1). Performed By: #### 1 9123-9, 2776-05, 17201-5 ####[facility] LABORATORYCLIA [id number] [place] [address] [place] Potassium [Moles/Vol] 3.3 mmol/L Low 3.7-5.1 [facility] Comment on above: Order Comment: Speci men Type: BLOOD SPECIMEN Performed By: #### 1 9123-9, 2776-05, 28551-6 ####[facility] LABORATORYCLIA [id number] [address] [place] Sodium [Moles/Vol] 146 mmol/L High 136-144 [facility] Comment on above: Order Comment: Speci men Type: BLOOD SPECIMEN Performed By: #### 1 9123-9, 27711-04, 30109-3 ####[facility]ORATORYCLIA [id number] [address] STATES [facility] Urea nitrogen [Mass/Vol] 10 mg/dL Normal 9-24 [facility] Comment on above: Order Comment: Speci men Type: BLOOD SPECIMEN Performed By: #### 1 9123-9, 2777-1, 54482-9 ####[facility]ORATORYCLIA [id number] [address] OF [facility] CASE MANAGEMon 06-03-2021 CASE MANAGEM Normal [facility] CBC panel Auto (Bld)on 06-03 Erythrocyte distribution width (RBC) [Ratio] 15.6 % High 11.5-15.0 [facility] Comment on above: Order Comment: Speci men Type: BLOOD SPECIMEN Performed By: #### 5 8410-2 ####[facility] LABORATORYCLIA [id number] [address] Hematocrit (Bld) [Volume fraction] 36.9 % Low 39.0-51.0 [facility] Comment on above: Order Comment: Speci men Type: BLOOD SPECIMEN Performed By: #### 5 8410-2 ####[facility]ORATORYCLIA [id number] [address] Hemoglobin (Bld) [Mass/Vol] 11.1 g/dL Low 13.0-17.0 [facility] Comment on above: Order Comment: Speci men Type: BLOOD SPECIMEN Performed By: #### 5 8410-2 ####[facility]ORATORYCLIA [id number] [address] MCH (RBC) [Entitic mass] 27.0 pg Normal 26.0-34.0 [facility] Comment on above: Order Comment: Speci men Type: BLOOD SPECIMEN Performed By: #### 5 8410-2 ####[facility] LABORATORYCLIA [id number] [address] STATES OF [facility] MCHC (RBC) [Mass/Vol] 30.1 g/dL Low 30.5-36.0 [facility] Comment on above: Order Comment: Speci men Type: BLOOD SPECIMEN Performed By: #### 5 8410-2 ####[facility]ORATORYCLIA [id number] [address] MCV (RBC) [Entitic vol] 89.8 fL Normal 80.0-100.0 [facility] Comment on above: Order Comment: Speci men Type: BLOOD SPECIMEN Performed By: #### 5 8410-2 ####[facility]ORATORYCLIA [id number] [address] Nucleated RBC (Bld) [#/Vol] 10*3/uL Normal <0.01 [facility] Comment on above: Order Comment: Speci men Type: BLOOD SPECIMEN Performed By: #### 5 8410-2 ####[facility]ATORYCLIA [id number] [address] Platelet mean volume (Bld) [Entitic vol] 10.5 fL Normal 9.0-12.7 [facility] Comment on above: Order Comment: Speci men Type: BLOOD SPECIMEN Performed By: #### 5 8410-2 ####[facility]ORATORYCLIA [id number] [address] Platelets (Bld) [#/Vol] 196 10*3/uL Normal 150-400 [facility] Comment on above: Order Comment: Speci men Type: BLOOD SPECIMEN Performed By: #### 5 8410-2 ####[facility]ATORYCLIA [id number] [address] RBC (Bld) [#/Vol] 4.11 10*6/uL Low 4.20-6.00 [facility] Comment on above: Order Comment: Speci men Type: BLOOD SPECIMEN Performed By: #### 5 8410-2 ####[facility]ATORYCLIA [id number] [address] WBC (Bld) [#/Vol] 8.18 10*3/uL Normal 3.70-11.00 [facility] Comment on above: Order Comment: Speci men Type: BLOOD SPECIMEN Performed By: #### 5 8410-2 ####[facility]ORATORYCLIA [id number] [address] [place] CONSULTon 06-03-2021 CONSULT Normal [facility] CONSULT PROGon 06-03-2021 CONSULT PROG Normal [facility] Gas and Carbon monoxide pane l (BldV)on 06-03-2021 Base excess Calc (BldV) [Moles/Vol] 1.4 mmol/L Normal 0-2 [facility] Comment on above: Order Comment: Speci men Type: VENOUS BLOOD SPECIMEN Performed By: #### 2 4344-4 ####[facility]ORATORYCLIA [id number] [address] Body temperature 98.42 [degF] Normal [facility] Comment on above: Order Comment: Speci men Type: VENOUS BLOOD SPECIMEN Performed By: #### 2 4344-4 ####[facility]ORATORYCLIA [id number] [address] STATES OF [facility] CALCIUM IONIZED, PH CORRECTED 1.09 mmol/L Normal 1.08-1.30 [facility] Comment on above: Order Comment: Speci men Type: VENOUS BLOOD SPECIMEN Performed By: #### 2 4344-4 ####[facility]ATORYCLIA [id number] [address] [place] Calcium.ionized (BldV) [Mass/Vol] 1.12 mmol/L Normal 1.08-1.30 [facility] Comment on above: Order Comment: Speci men Type: VENOUS BLOOD SPECIMEN Performed By: #### 2 4344-4 ####[facility]ORATORYCLIA [id number] [address] Carboxyhemoglobin (BldV) [Mass fraction] 1.7 % Normal 0.0-2.0 [facility] Comment on above: Order Comment: Speci men Type: VENOUS BLOOD SPECIMEN Result Comment: Carb oxyhemoglobin Reference Range for Smokers: 2.0-8.0% Performed By: #### 2 4344-4 ####[facility]ORATORYCLIA [id number] [place] [address] [place] [address] CO2 (BldV) [Partial pressure] 50 mm[Hg] Normal 42-55 [facility] Comment on above: Order Comment: Speci men Type: VENOUS BLOOD SPECIMEN Performed By: #### 2 4344-4 ####[facility]ATORYCLIA [id number] [place], [place] [address] [place] [address] CO2 [Moles/Vol] 24.9 mmol/L Low 25-29 [facility] Comment on above: Order Comment: Speci men Type: VENOUS BLOOD SPECIMEN Performed By: #### 2 4344-4 ####[facility]ATORYCLIA [id number] [address] CO2 adjusted to patient's actual temperature (BldV) [Partial pressure] 50 mmHg Normal 42-55 [facility] Comment on above: Order Comment: Speci men Type: VENOUS BLOOD SPECIMEN Performed By: #### 2 4344-4 ####[facility]ATORYCLIA [id number] [address] FIO2 30 % Normal [facility] Comment on above: Order Comment: Speci men Type: VENOUS BLOOD SPECIMEN Performed By: #### 2 4344-4 ####[facility]ATORYCLIA [id number] [address] Glucose [Mass/Vol] 191 mg/dL High 60-105 [facility] Comment on above: Order Comment: Speci men Type: VENOUS BLOOD SPECIMEN Performed By: #### 2 4344-4 ####[facility]ATORYCLIA [id number] [address] HCO3 (Bld) [Moles/Vol] 27.1 mmol/L Normal 24-[address] [facility] Comment on above: Order Comment: Speci men Type: VENOUS BLOOD SPECIMEN Performed By: #### 2 4344-4 ####[facility]ATORYCLIA [id number] [address] Hematocrit (Bld) [Volume fraction] 36.2 % Low 39.0-51.0 [facility] Comment on above: Order Comment: Speci men Type: VENOUS BLOOD SPECIMEN Performed By: #### 2 4344-4 ####[facility]ATORYCLIA [id number] [address] OF [place] Hemoglobin (Bld) [Mass/Vol] 11.8 g/dL Low 13.0-17.0 [facility] Comment on above: Order Comment: Speci men Type: VENOUS BLOOD SPECIMEN Performed By: #### 2 4344-4 ####[facility]ATORYCLIA [id number] [address] INHALED TIDAL VOLUME (ML) 530 Normal [facility] Comment on above: Order Comment: Speci men Type: VENOUS BLOOD SPECIMEN Performed By: #### 2 4344-4 ####[facility]ATORYCLIA [id number] [address] Methemoglobin (Bld) [Mass fraction] % Normal 0.0-1.5 [facility] Comment on above: Order Comment: Speci men Type: VENOUS BLOOD SPECIMEN Performed By: #### 2 4344-4 ####[facility]ATORYCLIA [id number] [address] OF [place] O2 THERAPY Ventilator Normal [facility] Comment on above: Order Comment: Speci men Type: VENOUS BLOOD SPECIMEN Performed By: #### 2 4344-4 ####[facility]ATORYCLIA [id number] [address] OF [place] Oxygen (BldV) [Partial pressure] 69 mm[Hg] High 35-45 [facility] Comment on above: Order Comment: Speci men Type: VENOUS BLOOD SPECIMEN Performed By: #### 2 4344-4 ####[facility]ORYCLIA [id number] [address] OF [place] Oxygen adjusted to patient's actual temperature (BldV) [Partial pressure] 68.8 mmHg High 35-45 [facility] Comment on above: Order Comment: Speci men Type: VENOUS BLOOD SPECIMEN Performed By: #### 2 4344-4 ####[facility]ATORYCLIA [id number] [place], [place] [address] [place] [address] Oxygen saturation in Blood 92.4 % High 60-85 [facility] Comment on above: Order Comment: Speci men Type: VENOUS BLOOD SPECIMEN Performed By: #### 2 4344-4 ####[facility]ATORYCLIA [id number] [address] Oxyhemoglobin (BldV) [Mass fraction] 90 % High 60-85 [facility] Comment on above: Order Comment: Speci men Type: VENOUS BLOOD SPECIMEN Performed By: #### 2 4344-4 ####[facility]ATORYCLIA [id number] [address] PEEP/CPAP 8 cmH2O Normal [facility] Comment on above: Order Comment: Speci men Type: VENOUS BLOOD SPECIMEN Performed By: #### 2 4344-4 ####[facility]ATORYCLIA [id number] [address] OF [facility] pH (BldV) 7.35 [pH] Normal 7.32-7.42 [facility] Comment on above: Order Comment: Speci men Type: VENOUS BLOOD SPECIMEN Performed By: #### 2 4344-4 ####[facility]ORYCLIA [id number] [address] pH adjusted to patient's actual temperature (BldV) 7.35 Normal 7.32-7.42 [facility] Comment on above: Order Comment: Speci men Type: VENOUS BLOOD SPECIMEN Performed By: #### 2 4344-4 ####[facility]ORYCLIA [id number] [address] Potassium [Moles/Vol] 3.6 mmol/L Normal 3.5-5.0 [facility] Comment on above: Order Comment: Speci men Type: VENOUS BLOOD SPECIMEN Performed By: #### 2 4344-4 ####[facility]ORATORYCLIA [id number] [address] SET VENTILATOR RESPIRATORY RATE (BPM) 18 BPM Normal [facility] Comment on above: Order Comment: Speci men Type: VENOUS BLOOD SPECIMEN Performed By: #### 2 4344-4 ####[facility]ORATORYCLIA [id number] [address] STATES [facility] Sodium [Moles/Vol] 141 mmol/L Normal 136-144 [facility] Comment on above: Order Comment: Speci men Type: VENOUS BLOOD SPECIMEN Performed By: #### 2 4344-4 ####[facility]ORATORYCLIA [id number] [address] HIV 1+2 Ab IA Qlon 2 HIV 1 and 2 Ab IA.rapid Nom Normal [facility] Comment on above: Order Comment: Speci men Type: BLOOD SPECIMEN Result Comment: Test not indicated. Performed By: #### 3 1201-7, TOXMG ####[facility]ORATORYCLIA [id number] [address] HIV 1+2 Ab+HIV1 p24 Ag IA Ql Non-Reactive Normal Nonreactive [facility] Comment on above: Order Comment: Speci men Type: BLOOD SPECIMEN Result Comment: [place] Rev. Code 3701.243(E): This information has been [...] #### 3 1201-7, TOXMG ####[facility]ORATORYCLIA [id number] [address] OF [place] HIVINT Normal [facility] Comment on above: Order Comment: Speci men Type: BLOOD SPECIMEN Result Comment: No e vidence of HIV-1 or HIV-2 infection. Should recent infection be suspected, repeat testing may be considered 2-3 weeks after this draw. Performed By: #### 3 1201-7, TOXMG ####[facility]ORATORYCLIA [id number] [address] Magnesium SerPl-mCncon 06-03 Magnesium [Mass/Vol] 1.9 mg/dL Normal 1.7-2.3 [facility] Comment on above: Order Comment: Speci men Type: BLOOD SPECIMEN Performed By: #### 1 9123-9, 2777-1, 15396-0 ####[facility]ORATORYCLIA [id number] [address] NUTRITIONon 06-03-2021 NUTRITION Normal [facility] Phosphate SerPl-mCncon 06-03 Phosphate [Mass/Vol] 1.9 mg/dL Low 2.7-4.8 [facility] Comment on above: Order Comment: Speci men Type: BLOOD SPECIMEN Performed By: #### 1 9123-9, 2777-1, 70323-2 ####[facility]ORATORYCLIA [id number] [address] TOXOPLASMOSIS IGM AND IGG AB on 06-03-2021 TOXO IGG QUAL Negative Normal Negative [facility] Comment on above: Order Comment: Speci men Type: BLOOD SPECIMEN Result Comment: No s erological evidence of past exposure to Toxoplasma gondii. Cannot exclude recent infection if the specimen collected within 3-4 weeks after infection.Negative <6.4 IU/mLEquivocal 6.4-9.9 IU/mLPositive >=10.0 IU/mL Performed By: #### 3 1201-7, TOXMG ####[facility]ORATORYCLIA [id number] [address] TOXO IGM QUAL Negative Normal Negative [facility] Comment on above: Order Comment: Speci men Type: BLOOD SPECIMEN Result Comment: No s erological evidence of recent exposure to Toxoplasma gondii.Negative <0.9 IndexEquivocal 0.9-0.99 IndexPositive >=1.0 Index Performed By: #### 3 1201-7, TOXMG ####[facility]ORATORYCLIA [id number] [address] [place] US DVT LOWER BILon US DVT LOWER RAINER Normal [facility] XR CHEST 1V FRONTALon 2021 XR CHEST 1V FRONTAL Normal [facility] ARTERIAL BLOOD GASESon 06-02 Base excess Calc (Bld) [Moles/Vol] 2 mmol/L Normal 0-2 [facility] Comment on above: Order Comment: Speci men Type: ARTERIAL BLOOD SPECIMEN Performed By: #### A LLBG ####[facility]ORATORYCLIA [id number] [address] Body temperature 99.32 [degF] Normal [facility] Comment on above: Order Comment: Speci men Type: ARTERIAL BLOOD SPECIMEN Performed By: #### A LLBG ####[facility]ORATORYCLIA [id number] [address] STATES OF [facility] CALCIUM IONIZED, PH CORRECTED 1.15 mmol/L Normal 1.08-1.30 [facility] Comment on above: Order Comment: Speci men Type: ARTERIAL BLOOD SPECIMEN Performed By: #### A LLBG ####[facility]ORATORYCLIA [id number] [address] OF [facility] Calcium.ionized (BldV) [Mass/Vol] 1.13 mmol/L Normal 1.08-1.30 [facility] Comment on above: Order Comment: Speci men Type: ARTERIAL BLOOD SPECIMEN Performed By: #### A LLBG ####[facility]ORATORYCLIA [id number] [address] [place] Carboxyhemoglobin (BldA) [Mass fraction] 1.4 % Normal 0.0-2.0 [facility] Comment on above: Order Comment: Speci men Type: ARTERIAL BLOOD SPECIMEN Result Comment: Carb oxyhemoglobin Reference Range for Smokers: 2.0-8.0% Performed By: #### A LLBG ####[facility]ORATORYCLIA [id number] [address] CO2 (Bld) [Partial pressure] 39 mm Hg Normal 36-46 [facility] Comment on above: Order Comment: Speci men Type: ARTERIAL BLOOD SPECIMEN Performed By: #### A LLBG ####[facility]ORYCLIA [id number] [address] OF [facility] CO2 [Moles/Vol] 23.4 mmol/L Normal 22-28 [facility] Comment on above: Order Comment: Speci men Type: ARTERIAL BLOOD SPECIMEN Performed By: #### A LLBG ####[facility]ATORYCLIA [id number] [address] CO2 adjusted to patient's actual temperature (Bld) [Partial pressure] 40 mmHg Normal 36-46 [facility] Comment on above: Order Comment: Speci men Type: ARTERIAL BLOOD SPECIMEN Performed By: #### A LLBG ####[facility]ATORYCLIA [id number] [address] Glucose [Mass/Vol] 156 mg/dL High 60-105 [facility] Comment on above: Order Comment: Speci men Type: ARTERIAL BLOOD SPECIMEN Performed By: #### A LLBG ####[facility]ATORYCLIA [id number] [address] [place] HCO3 (Bld) [Moles/Vol] 26 mmol/L Normal 22-26 [facility] Comment on above: Order Comment: Speci men Type: ARTERIAL BLOOD SPECIMEN Performed By: #### A LLBG ####[facility]ORYCLIA [id number] [address] OF [place] Hematocrit (Bld) [Volume fraction] 33.9 % Low 39.0-51.0 [facility] Comment on above: Order Comment: Speci men Type: ARTERIAL BLOOD SPECIMEN Performed By: #### A LLBG ####[facility]ORYCLIA [id number] [address] [place] Hemoglobin (Bld) [Mass/Vol] 11.0 g/dL Low 13.0-17.0 [facility] Comment on above: Order Comment: Speci men Type: ARTERIAL BLOOD SPECIMEN Performed By: #### A LLBG ####[facility]ORYCLIA [id number] [address] Methemoglobin (Bld) [Mass fraction] % Normal 0.0-1.5 [facility] Comment on above: Order Comment: Speci men Type: ARTERIAL BLOOD SPECIMEN Performed By: #### A LLBG ####[facility]ORYCLIA [id number] [address] [place] O2 THERAPY Ventilator Normal [facility] Comment on above: Order Comment: Speci men Type: ARTERIAL BLOOD SPECIMEN Performed By: #### A LLBG ####[facility]ORYCLIA [id number] [address] Oxygen (Bld) [Partial pressure] 70 mm Hg Low 85-95 [facility] Comment on above: Order Comment: Speci men Type: ARTERIAL BLOOD SPECIMEN Performed By: #### A LLBG ####[facility]ORYCLIA [id number] [address] Oxygen adjusted to patient's actual temperature (Bld) [Partial pressure] 72.2 mmHg Low 85-95 [facility] Comment on above: Order Comment: Speci men Type: ARTERIAL BLOOD SPECIMEN Performed By: #### A LLBG ####[facility]ORYCLIA [id number] [address] OXYGEN SATURATION, ARTERIAL 96 % Normal 95-98 [facility] Comment on above: Order Comment: Speci men Type: ARTERIAL BLOOD SPECIMEN Performed By: #### A LLBG ####[facility]ORYCLIA [id number] [address] Oxyhemoglobin (BldA) [Mass fraction] 94 % Low 95-98 [facility] Comment on above: Order Comment: Speci men Type: ARTERIAL BLOOD SPECIMEN Performed By: #### A LLBG ####[facility]ORYCLIA [id number] [address] pH (Bld) 7.43 [pH] Normal 7.35-7.45 [facility] Comment on above: Order Comment: Speci men Type: ARTERIAL BLOOD SPECIMEN Performed By: #### A LLBG ####[facility]ORYCLIA [id number] [address] pH adjusted to patient's actual temperature (Bld) 7.42 Normal 7.35-7.45 [facility] Comment on above: Order Comment: Speci men Type: ARTERIAL BLOOD SPECIMEN Performed By: #### A LLBG ####[facility]ORYCLIA [id number] [address] Potassium [Moles/Vol] 2.6 mmol/L Low 3.5-5.0 [facility] Comment on above: Order Comment: Speci men Type: ARTERIAL BLOOD SPECIMEN Performed By: #### A LLBG ####[facility]ORYCLIA [id number] [address] Sodium [Moles/Vol] 142 mmol/L Normal 136-144 [facility] Comment on above: Order Comment: Speci men Type: ARTERIAL BLOOD SPECIMEN Performed By: #### A LLBG ####[facility]ATORYCLIA [id number] [address] [place] Ammonia Plas-sCncon 06-02-19 22 Ammonia (P) [Moles/Vol] 20 umol/L Normal 16-60 [facility] Comment on above: Order Comment: Speci men Type: BLOOD SPECIMEN Performed By: #### 1 6362-6 ####[facility]ATORYCLIA [id number] [address] Bacteria CSF Culton 06-02-19 22 Bacteria identified Cx Nom (CSF) CULTURE, CSF: No growth 14 days GRAM STAIN: No organisms seen Rare Polymorphonuclear leukocytes Gram stain performed on cytospun specimen. Normal [facility] Comment on above: Performed By: #### 6 06-4 ####[facility]ORYCLIA [id number] [place] [address] [place] Basic metabolic 2000 panelon 06-02-2021 Anion gap [Moles/Vol] 10 mmol/L Normal 9-18 [facility] Comment on above: Order Comment: Speci men Type: BLOOD SPECIMEN Performed By: #### 2 4321-2, , 2776-05 ####[facility]ORYCLIA [id number] [place] [address] [place] Calcium [Mass/Vol] 8.1 mg/dL Low 8.5-10.2 [facility] Comment on above: Order Comment: Speci men Type: BLOOD SPECIMEN Performed By: #### 2 4321-2, , 2776-05 ####[facility]ATORYCLIA [id number] [address] [place] Chloride [Moles/Vol] 108 mmol/L High 97-105 [facility] Comment on above: Order Comment: Speci men Type: BLOOD SPECIMEN Performed By: #### 2 4321-2, , 2776-05 ####[facility]ORYCLIA [id number] [address] [place] CO2 [Moles/Vol] 24 mmol/L Normal 22-30 [facility] Comment on above: Order Comment: Speci men Type: BLOOD SPECIMEN Performed By: #### 2 4321-2, , 2776-05 ####[facility]ORYCLIA [id number] [address] [place] Creatinine [Mass/Vol] 0.78 mg/dL Normal 0.73-1.22 [facility] Comment on above: Order Comment: Speci men Type: BLOOD SPECIMEN Performed By: #### 2 4321-2, , 2776-05 ####[facility]ORYCLIA [id number] [place] [address] [place] GFR/1.73 sq M.predicted MDRD (S/P/Bld) [Vol rate/Area] mL/min/{1.73_m2} Normal [facility] Comment on above: Order Comment: [...] By: #### 2 4321-2, , 2776-05 ####[facility] [id number] [place] [address] [place] Glucose [Mass/Vol] 162 mg/dL High 74-99 [facility] Comment on above: Order Comment: Speci [facility] Type: BLOOD SPECIMEN Result Comment: The [place] [employer] (ADA) provides guidance for cutoff [...] Standards of Medical Care in Diabetes 2016, [place] [employer]. Diabetes Care. 2016.39(Suppl 1). Performed By: #### 2 4321-2, , 2776-05 ####[facility]ORATORYCLIA [id number] [place] [address] [place] Potassium [Moles/Vol] 2.7 mmol/L Low 3.7-5.1 [facility] Comment on above: Order Comment: Speci [facility] Type: BLOOD SPECIMEN Performed By: #### 2 4321-2, , 2776-05 ####[facility]ORATORYCLIA [id number] [address] Sodium [Moles/Vol] 142 mmol/L Normal 136-144 [facility] Comment on above: Order Comment: Speci men Type: BLOOD SPECIMEN Performed By: #### 2 4321-2, , 2776-05 ####[facility]ORATORYCLIA [id number] [address] Urea nitrogen [Mass/Vol] 12 mg/dL Normal 9-24 [facility] Comment on above: Order Comment: Speci men Type: BLOOD SPECIMEN Performed By: #### 2 1-2, , 2776-05 ####[facility]ORATORYCLIA [id number] [address] CBC panel Auto (Bld)on 06-02 Erythrocyte distribution width (RBC) [Ratio] 15.0 % Normal 11.5-15.0 [facility] Comment on above: Order Comment: Speci men Type: BLOOD SPECIMEN Performed By: #### 5 8410-2 ####[facility]ORYCLIA [id number] [address] Hematocrit (Bld) [Volume fraction] 34.3 % Low 39.0-51.0 [facility] Comment on above: Order Comment: Speci men Type: BLOOD SPECIMEN Performed By: #### 5 8410-2 ####[facility]ORATORYCLIA [id number] [address] Hemoglobin (Bld) [Mass/Vol] 10.3 g/dL Low 13.0-17.0 [facility] Comment on above: Order Comment: Speci men Type: BLOOD SPECIMEN Performed By: #### 5 8410-2 ####[facility] LABORATORYCLIA [id number] [address] MCH (RBC) [Entitic mass] 27.0 pg Normal 26.0-34.0 [facility] Comment on above: Order Comment: Speci men Type: BLOOD SPECIMEN Performed By: #### 5 8410-2 ####[facility] LABORATORYCLIA [id number] [address] MCHC (RBC) [Mass/Vol] 30.0 g/dL Low 30.5-36.0 [facility] Comment on above: Order Comment: Speci men Type: BLOOD SPECIMEN Performed By: #### 5 8410-2 ####[facility]ORATORYCLIA [id number] [address] MCV (RBC) [Entitic vol] 90.0 fL Normal 80.0-100.0 [facility] Comment on above: Order Comment: Speci men Type: BLOOD SPECIMEN Performed By: #### 5 8410-2 ####[facility]ORATORYCLIA [id number] [address] Nucleated RBC (Bld) [#/Vol] 10*3/uL Normal <0.01 [facility] Comment on above: Order Comment: Speci men Type: BLOOD SPECIMEN Performed By: #### 5 8410-2 ####[facility]ORATORYCLIA [id number] [address] Platelet mean volume (Bld) [Entitic vol] 10.2 fL Normal 9.0-12.7 [facility] Comment on above: Order Comment: Speci men Type: BLOOD SPECIMEN Performed By: #### 5 8410-2 ####[facility]ORATORYCLIA [id number] [address] Platelets (Bld) [#/Vol] 194 10*3/uL Normal 150-400 [facility] Comment on above: Order Comment: Speci men Type: BLOOD SPECIMEN Performed By: #### 5 8410-2 ####[facility]ATORYCLIA [id number] [address] RBC (Bld) [#/Vol] 3.81 10*6/uL Low 4.20-6.00 [facility] Comment on above: Order Comment: Speci men Type: BLOOD SPECIMEN Performed By: #### 5 8410-2 ####[facility]ORATORYCLIA [id number] [address] OF [facility] WBC (Bld) [#/Vol] 9.22 10*3/uL Normal 3.70-11.00 [facility] Comment on above: Order Comment: Speci men Type: BLOOD SPECIMEN Performed By: #### 5 8410-2 ####[facility]ORATORYCLIA [id number] [address] OF [facility] CONSULT PROGon 06-02-2021 CONSULT PROG Normal [facility] CSF MANUAL DIFFon 06-02-2021 DIF TTL, CSF 25 cells counted Normal [facility] Comment on above: Order Comment: Speci men Type: CEREBROSPINAL FLUID Performed By: #### 3 4563-7, [id number], [id number] ####[facility]ORATORYCLIA [id number] [address] OF [place] LYMPH%, CSF 4 % Low 50-90 [facility] Comment on above: Order Comment: Speci men Type: CEREBROSPINAL FLUID Performed By: #### 3 4563-7, [id number], [id number] ####[facility]ATORYCLIA [id number] [address] [place] MACRO%, CSF 4 % High <1 [facility] Comment on above: Order Comment: Speci men Type: CEREBROSPINAL FLUID Performed By: #### 3 4563-7, [id number], [id number] ####[facility]ORYCLIA [id number] [address] [place] MONO%, CSF 20 % Normal 10-50 [facility] Comment on above: Order Comment: Speci men Type: CEREBROSPINAL FLUID Performed By: #### 3 4563-7, [id number], [id number] ####[facility]ATORYCLIA [id number] [address] [place] NEUT%, CSF 72 % High 0-3 [facility] Comment on above: Order Comment: Speci men Type: CEREBROSPINAL FLUID Performed By: #### 3 4563-7, [id number], [id number] ####[facility]ATORYCLIA [id number] [place], [place] [address] [place] [address] CSF PATHOLOGIST INTERP (LAB REFLEX ORDER-NO BILL)on 06-02-2021 CSF STAFF REVIEW Negative Normal [facility] Comment on above: Order Comment: Speci men Type: CEREBROSPINAL FLUID Performed By: #### 3 4563-7, [id number], [id number] ####[facility]ATORYCLIA [id number] [place], [place] [address] [place] [address] Pathologist name Reviewed by Amador Stevens MD [facility] Comment on above: Order Comment: Speci men Type: CEREBROSPINAL FLUID Performed By: #### 3 4563-7, [id number], [id number] ####[facility]ATORYCLIA [id number] [address] Cell count panel (CSF)on Clarity (CSF) Clear Normal Clear [facility] Comment on above: Order Comment: Speci men Type: CEREBROSPINAL FLUID Performed By: #### 3 4563-7, [id number], [id number] ####[facility]ORYCLIA [id number] [place], [place] [address] [place] [address] Clarity (Unsp spec) Not Indicated Normal Clear [facility] Comment on above: Order Comment: Speci men Type: CEREBROSPINAL FLUID Performed By: #### 3 4563-7, [id number], [id number] ####[facility]ORYCLIA [id number] [place], [place] [address] [place] [address] Color (CSF) Colorless Normal Colorless [facility] Comment on above: Order Comment: Speci men Type: CEREBROSPINAL FLUID Performed By: #### 3 4563-7, [id number], [id number] ####[facility]ORYCLIA [id number] [address] Color (Spun CSF) Not Indicated Normal Colorless [facility] Comment on above: Order Comment: Speci men Type: CEREBROSPINAL FLUID Performed By: #### 3 4563-7, [id number], [id number] ####[facility]ORATORYCLIA [id number] [address] CSF TUBE NUMBER [employer] Container Normal [facility] Comment on above: Order Comment: Speci men Type: CEREBROSPINAL FLUID Performed By: #### 3 4563-7, [id number], [id number] ####[facility]ORATORYCLIA [id number] [address] RBC Manual cnt (CSF) [#/Vol] 117 cells/uL High 0-5 [facility] Comment on above: Order Comment: Speci men Type: CEREBROSPINAL FLUID Performed By: #### 3 4563-7, [id number], [id number] ####[facility]ATORYCLIA [id number] [address] WBC Manual cnt (CSF) [#/Vol] 1 cells/uL Normal 0-[address] [place] [address] Comment on above: Order Comment: Speci men Type: CEREBROSPINAL FLUID Performed By: #### 3 4563-7, [id number], [id number] ####[facility]ATORYCLIA [id number] [address] Glucose CSF-mCncon 2 Glucose (CSF) [Mass/Vol] 82 mg/dL High 40-70 [facility] Comment on above: Order Comment: Speci men Type: CEREBROSPINAL FLUID Result Comment: Lumb ar CSF glucose values of healthy patients are approximately 60% of the plasma values and must always be compared with a concurrently measured plasma value for adequate clinical interpretation.References: 1. Glucose HK (GLUC3) [package insert V 12.0 Armenian]. [employer], [place], [place]. September 2015. 2. Michelle Moore, Loki, H. (2015). Chapter 7: Glucose and Lactate. Marianela Rothman.(eds.), Cerebrospinal Fluid in Clinical Neurology. Miner: Hubub. Performed By: #### 2 342-4 ####[facility]ORATORYCLIA [id number] [address] HEPATIC FUNCTION PNLon 06-02 Albumin [Mass/Vol] 3.2 g/dL Low 3.9-4.9 [facility] Comment on above: Order Comment: Speci men Type: BLOOD SPECIMEN Performed By: #### H FP, 94658-7 ####[facility]ATORYCLIA [id number] [address] ALP [Catalytic activity/Vol] 67 U/L Normal 38-113 [facility] Comment on above: Order Comment: Speci men Type: BLOOD SPECIMEN Performed By: #### H FP, 49858-7 ####[facility]ATORYCLIA [id number] [address] ALT With P-5'-P [Catalytic activity/Vol] 16 U/L Normal 10-54 [facility] Comment on above: Order Comment: Speci men Type: BLOOD SPECIMEN Performed By: #### H FP, 54671-6 ####[facility]ORYCLIA [id number] [address] AST With P-5'-P [Catalytic activity/Vol] 25 U/L Normal 14-40 [facility] Comment on above: Order Comment: Speci men Type: BLOOD SPECIMEN Performed By: #### H FP, 86463-4 ####[facility]ORYCLIA [id number] [address] Bilirubin [Mass/Vol] 0.2 mg/dL Normal 0.2-1.3 [facility] Comment on above: Order Comment: Speci men Type: BLOOD SPECIMEN Performed By: #### H FP, 42951-6 ####[facility]ORYCLIA [id number] [address] Bilirubin.conjugated [Mass/Vol] mg/dL Normal <0.2 [facility] Comment on above: Order Comment: Speci men Type: BLOOD SPECIMEN Performed By: #### H FP, 88450-3 ####[facility]ORYCLIA [id number] [address] STATES [facility] Protein [Mass/Vol] 5.8 g/dL Low 6.3-8.0 [facility] Comment on above: Order Comment: Speci men Type: BLOOD SPECIMEN Performed By: #### Marin KATHIE, 23436-4 ####[facility]ORATORYCLIA [id number] [address] [place] MRI BRAIN WO/W IVCONon 06-02 MRI BRAIN WO/W IVCON Normal [facility] Magnesium SerPl-mCncon 06-02 Magnesium [Mass/Vol] 2.0 mg/dL Normal 1.7-2.3 [facility] Comment on above: Order Comment: Speci men Type: BLOOD SPECIMEN Performed By: #### 2 4321-2, , 2776-05 ####[facility]ORATORYCLIA [id number] [address] [facility] Natriuretic peptide.B prohormone N-Terminal [Mass/Vol] 296 pg/mL High <125 [facility] Comment on above: Order Comment: Speci men Type: BLOOD SPECIMEN Performed By: #### Marin KATHIE, 17899-5 ####[facility]ORATORYCLIA [id number] [address] [place] POTASSIUM BLDon 06-02-2021 Potassium [Moles/Vol] 3.2 mmol/L Low 3.7-5.1 [facility] Comment on above: Order Comment: Speci men Type: BLOOD SPECIMEN Performed By: #### K 1 ####[facility]ORATORYCLIA [id number] [address] OF [facility] Phosphate SerPl-ncon 06-02 Phosphate [Mass/Vol] 2.1 mg/dL Low 2.7-4.8 [facility] Comment on above: Order Comment: Speci men Type: BLOOD SPECIMEN Performed By: #### 2 4321-2, , 2776-05 ####[facility]ORATORYCLIA [id number] [address] STATES OF [facility] Vancomycin random [Mass/Vol] on 06-02-2021 Vancomycin [Mass/Vol] 18.8 ug/mL Normal 10.0-20.0 [facility] Comment on above: Order Comment: Speci men Type: BLOOD SPECIMEN Result Comment: Refe rence ranges and high/low indicator flags are provided as general guidelines only. The treating physician must determine appropriate target levels/dosing based on the specific clinical situation. Performed By: #### 4 091-5 ####[facility]ORATORYCLIA [id number] [address] OF [facility] ALLIED HEALTHon 06-01-2021 ALLIED HEALTH Normal [facility] ALLIED HEALTH Normal [facility] ALLIED HEALTH Normal [facility] ARTERIAL BLOOD GASESon 06-01 Base excess Calc (Bld) [Moles/Vol] 1 mmol/L Normal 0-2 [facility] Comment on above: Order Comment: Speci men Type: ARTERIAL BLOOD SPECIMEN Performed By: #### A LLBG ####[facility]ORATORYCLIA [id number] [address] Body temperature 97.52 [degF] Normal [facility] Comment on above: Order Comment: Speci men Type: ARTERIAL BLOOD SPECIMEN Performed By: #### A LLBG ####[facility]ORATORYCLIA [id number] [address] CALCIUM IONIZED, PH CORRECTED 1.13 mmol/L Normal 1.08-1.30 [facility] Comment on above: Order Comment: Speci men Type: ARTERIAL BLOOD SPECIMEN Performed By: #### A LLBG ####[facility]ATORYCLIA [id number] [address] Calcium.ionized (BldV) [Mass/Vol] 1.12 mmol/L Normal 1.08-1.30 [facility] Comment on above: Order Comment: Speci men Type: ARTERIAL BLOOD SPECIMEN Performed By: #### A LLBG ####[facility]ORYCLIA [id number] [address] Carboxyhemoglobin (BldA) [Mass fraction] 1.6 % Normal 0.0-2.0 [facility] Comment on above: Order Comment: Speci men Type: ARTERIAL BLOOD SPECIMEN Result Comment: Carb oxyhemoglobin Reference Range for Smokers: 2.0-8.0% Performed By: #### A LLBG ####[facility]ATORYCLIA [id number] [address] CO2 (Bld) [Partial pressure] 41 mm Hg Normal 36-46 [facility] Comment on above: Order Comment: Speci men Type: ARTERIAL BLOOD SPECIMEN Performed By: #### A LLBG ####[facility]ATORYCLIA [id number] [address] CO2 [Moles/Vol] 23.0 mmol/L Normal 22-28 [facility] Comment on above: Order Comment: Speci men Type: ARTERIAL BLOOD SPECIMEN Performed By: #### A LLBG ####[facility]ATORYCLIA [id number] [address] CO2 adjusted to patient's actual temperature (Bld) [Partial pressure] 40 mmHg Normal 36-46 [facility] Comment on above: Order Comment: Speci men Type: ARTERIAL BLOOD SPECIMEN Performed By: #### A LLBG ####[facility]ATORYCLIA [id number] [address] [place] FIO2 40 % Normal [facility] Comment on above: Order Comment: Speci men Type: ARTERIAL BLOOD SPECIMEN Performed By: #### A LLBG ####[facility]ORYCLIA [id number] [address] Glucose [Mass/Vol] 127 mg/dL High 60-105 [facility] Comment on above: Order Comment: Speci men Type: ARTERIAL BLOOD SPECIMEN Performed By: #### A LLBG ####[facility]ORYCLIA [id number] [address] HCO3 (Bld) [Moles/Vol] 25 mmol/L Normal 22-26 [facility] Comment on above: Order Comment: Speci men Type: ARTERIAL BLOOD SPECIMEN Performed By: #### A LLBG ####[facility]ORYCLIA [id number] [address] Hematocrit (Bld) [Volume fraction] 33.7 % Low 39.0-51.0 [facility] Comment on above: Order Comment: Speci men Type: ARTERIAL BLOOD SPECIMEN Performed By: #### A LLBG ####[facility]ORYCLIA [id number] [address] Hemoglobin (Bld) [Mass/Vol] 10.9 g/dL Low 13.0-17.0 [facility] Comment on above: Order Comment: Speci men Type: ARTERIAL BLOOD SPECIMEN Performed By: #### A LLBG ####[facility]ORYCLIA [id number] [address] INHALED TIDAL VOLUME (ML) 500 Normal [facility] Comment on above: Order Comment: Speci men Type: ARTERIAL BLOOD SPECIMEN Performed By: #### A LLBG ####[facility]ORATORYCLIA [id number] [address] INVASIVE VENTILATOR MODE PRVC=Pressure Regulated Volume Control [facility] Comment on above: Order Comment: Speci men Type: ARTERIAL BLOOD SPECIMEN Performed By: #### A LLBG ####[facility]ORYCLIA [id number] [address] Methemoglobin (Bld) [Mass fraction] % Normal 0.0-1.5 [facility] Comment on above: Order Comment: Speci men Type: ARTERIAL BLOOD SPECIMEN Performed By: #### A LLBG ####[facility]ORYCLIA [id number] [address] O2 THERAPY Ventilator Normal [facility] Comment on above: Order Comment: Speci men Type: ARTERIAL BLOOD SPECIMEN Performed By: #### A LLBG ####[facility]ORYCLIA [id number] [address] Oxygen (Bld) [Partial pressure] 64 mm Hg Low 85-95 [facility] Comment on above: Order Comment: Speci men Type: ARTERIAL BLOOD SPECIMEN Performed By: #### A LLBG ####[facility]ATORYCLIA [id number] [address] Oxygen adjusted to patient's actual temperature (Bld) [Partial pressure] 61.8 mmHg Low 85-95 [facility] Comment on above: Order Comment: Speci men Type: ARTERIAL BLOOD SPECIMEN Performed By: #### A LLBG ####[facility]ORYCLIA [id number] [address] OXYGEN SATURATION, ARTERIAL 94 % Low 95-98 [facility] Comment on above: Order Comment: Speci men Type: ARTERIAL BLOOD SPECIMEN Performed By: #### A LLBG ####[facility]ORYCLIA [id number] [address] Oxyhemoglobin (BldA) [Mass fraction] 92 % Low 95-98 [facility] Comment on above: Order Comment: Speci men Type: ARTERIAL BLOOD SPECIMEN Performed By: #### A LLBG ####[facility]ORYCLIA [id number] [address] PEEP/CPAP 5 cmH2O Normal [facility] Comment on above: Order Comment: Speci men Type: ARTERIAL BLOOD SPECIMEN Performed By: #### A LLBG ####[facility]ORYCLIA [id number] [address] pH (Bld) 7.40 [pH] Normal 7.35-7.45 [facility] Comment on above: Order Comment: Speci men Type: ARTERIAL BLOOD SPECIMEN Performed By: #### A LLBG ####[facility]ORYCLIA [id number] [address] pH adjusted to patient's actual temperature (Bld) 7.41 Normal 7.35-7.45 [facility] Comment on above: Order Comment: Speci men Type: ARTERIAL BLOOD SPECIMEN Performed By: #### A LLBG ####[facility]ORYCLIA [id number] [address] Potassium [Moles/Vol] 3.1 mmol/L Low 3.5-5.0 [facility] Comment on above: Order Comment: Speci men Type: ARTERIAL BLOOD SPECIMEN Performed By: #### A LLBG ####[facility]ORYCLIA [id number] [address] SET VENTILATOR RESPIRATORY RATE (BPM) 18 BPM Normal [facility] Comment on above: Order Comment: Speci men Type: ARTERIAL BLOOD SPECIMEN Performed By: #### A LLBG ####[facility]ORYCLIA [id number] [address] Sodium [Moles/Vol] 141 mmol/L Normal 136-144 [facility] Comment on above: Order Comment: Speci men Type: ARTERIAL BLOOD SPECIMEN Performed By: #### A LLBG ####[facility]ORYCLIA [id number] [address] BASE DEFICIT, ARTERIAL -1.0 mmol/L Normal -2-[address] [facility] Comment on above: Order Comment: Speci men Type: ARTERIAL BLOOD SPECIMEN Performed By: #### A LLBG ####[facility]ORYCLIA [id number] [address] Body temperature 98.24 [degF] Normal [facility] Comment on above: Order Comment: Speci men Type: ARTERIAL BLOOD SPECIMEN Performed By: #### A LLBG ####[facility]ORYCLIA [id number] [address] CALCIUM IONIZED, PH CORRECTED 1.08 mmol/L Normal 1.08-1.30 [facility] Comment on above: Order Comment: Speci men Type: ARTERIAL BLOOD SPECIMEN Performed By: #### A LLBG ####[facility]ORYCLIA [id number] [address] Calcium.ionized (BldV) [Mass/Vol] 1.15 mmol/L Normal 1.08-1.30 [facility] Comment on above: Order Comment: Speci men Type: ARTERIAL BLOOD SPECIMEN Performed By: #### A LLBG ####[facility]ORYCLIA [id number] [address] Carboxyhemoglobin (BldA) [Mass fraction] 1.4 % Normal 0.0-2.0 [facility] Comment on above: Order Comment: Speci men Type: ARTERIAL BLOOD SPECIMEN Result Comment: Carb oxyhemoglobin Reference Range for Smokers: 2.0-8.0% Performed By: #### A LLBG ####[facility]ORYCLIA [id number] [address] CO2 (Bld) [Partial pressure] 59 mm Hg High 36-46 [facility] Comment on above: Order Comment: Speci men Type: ARTERIAL BLOOD SPECIMEN Performed By: #### A LLBG ####[facility]ORYCLIA [id number] [address] CO2 [Moles/Vol] 24.5 mmol/L Normal 22-28 [facility] Comment on above: Order Comment: Speci men Type: ARTERIAL BLOOD SPECIMEN Performed By: #### A LLBG ####[facility]ORYCLIA [id number] [address] CO2 adjusted to patient's actual temperature (Bld) [Partial pressure] 58 mmHg High 36-46 [facility] Comment on above: Order Comment: Speci men Type: ARTERIAL BLOOD SPECIMEN Performed By: #### A LLBG ####[facility]ORYCLIA [id number] [address] FIO2 40 % Normal [facility] Comment on above: Order Comment: Speci men Type: ARTERIAL BLOOD SPECIMEN Performed By: #### A LLBG ####[facility]ORYCLIA [id number] [address] [place] Glucose [Mass/Vol] 128 mg/dL High 60-105 [facility] Comment on above: Order Comment: Speci men Type: ARTERIAL BLOOD SPECIMEN Performed By: #### A LLBG ####[facility]ORYCLIA [id number] [address] [place] HCO3 (Bld) [Moles/Vol] 26 mmol/L Normal 22-26 [facility] Comment on above: Order Comment: Speci men Type: ARTERIAL BLOOD SPECIMEN Performed By: #### A LLBG ####[facility]ORYCLIA [id number] [address] [place] Hematocrit (Bld) [Volume fraction] 35.6 % Low 39.0-51.0 [facility] Comment on above: Order Comment: Speci men Type: ARTERIAL BLOOD SPECIMEN Performed By: #### A LLBG ####[facility]ORYCLIA [id number] [address] [place] Hemoglobin (Bld) [Mass/Vol] 11.5 g/dL Low 13.0-17.0 [facility] Comment on above: Order Comment: Speci men Type: ARTERIAL BLOOD SPECIMEN Performed By: #### A LLBG ####[facility]ORYCLIA [id number] [address] [place] INHALED TIDAL VOLUME (ML) 500 Normal [facility] Comment on above: Order Comment: Speci men Type: ARTERIAL BLOOD SPECIMEN Performed By: #### A LLBG ####[facility]ORYCLIA [id number] [address] [place] INVASIVE VENTILATOR MODE PRVC=Pressure Regulated Volume Control Normal [facility] Comment on above: Order Comment: Speci men Type: ARTERIAL BLOOD SPECIMEN Performed By: #### A LLBG ####[facility]ORYCLIA [id number] [address] [place] Methemoglobin (Bld) [Mass fraction] % Normal 0.0-1.5 [facility] Comment on above: Order Comment: Speci men Type: ARTERIAL BLOOD SPECIMEN Performed By: #### A LLBG ####[facility]CLIA [id number] [address] O2 THERAPY Ventilator Normal [facility] Comment on above: Order Comment: Speci men Type: ARTERIAL BLOOD SPECIMEN Performed By: #### A LLBG ####[facility]ORYCLIA [id number] [address] Oxygen (Bld) [Partial pressure] 88 mm Hg Normal 85-95 [facility] Comment on above: Order Comment: Speci men Type: ARTERIAL BLOOD SPECIMEN Performed By: #### A LLBG ####[facility]ORYCLIA [id number] [address] Oxygen adjusted to patient's actual temperature (Bld) [Partial pressure] 86.5 mmHg Normal 85-95 [facility] Comment on above: Order Comment: Speci men Type: ARTERIAL BLOOD SPECIMEN Performed By: #### A LLBG ####[facility]ORYCLIA [id number] [address] [place] OXYGEN SATURATION, ARTERIAL 95 % Normal 95-98 [facility] Comment on above: Order Comment: Speci men Type: ARTERIAL BLOOD SPECIMEN Performed By: #### A LLBG ####[facility]ORYCLIA [id number] [address] [place] Oxyhemoglobin (BldA) [Mass fraction] 93 % Low 95-98 [facility] Comment on above: Order Comment: Speci men Type: ARTERIAL BLOOD SPECIMEN Performed By: #### A LLBG ####[facility]ORYCLIA [id number] [address] [place] PEEP/CPAP 5 cmH2O Normal [facility] Comment on above: Order Comment: Speci men Type: ARTERIAL BLOOD SPECIMEN Performed By: #### A LLBG ####[facility]ORYCLIA [id number] [address] [place] pH (Bld) 7.27 [pH] Low 7.35-7.45 [facility] Comment on above: Order Comment: Speci men Type: ARTERIAL BLOOD SPECIMEN Performed By: #### A LLBG ####[facility]ORYCLIA [id number] [address] pH adjusted to patient's actual temperature (Bld) 7.28 Low 7.35-7.45 [facility] Comment on above: Order Comment: Speci men Type: ARTERIAL BLOOD SPECIMEN Performed By: #### A LLBG ####[facility]ORYCLIA [id number] [address] Potassium [Moles/Vol] 3.3 mmol/L Low 3.5-5.0 [facility] Comment on above: Order Comment: Speci men Type: ARTERIAL BLOOD SPECIMEN Performed By: #### A LLBG ####[facility]ORYCLIA [id number] [address] SET VENTILATOR RESPIRATORY RATE (BPM) 14 BPM Normal [facility] Comment on above: Order Comment: Speci men Type: ARTERIAL BLOOD SPECIMEN Performed By: #### A LLBG ####[facility]ORYCLIA [id number] [address] Sodium [Moles/Vol] 141 mmol/L Normal 136-144 [facility] Comment on above: Order Comment: Speci men Type: ARTERIAL BLOOD SPECIMEN Performed By: #### A LLBG ####[facility] LABORATORYCLIA [id number] [address] Bacteria CSF Culton 06-01-19 Bacteria identified Cx Nom (CSF) CULTURE, CSF: No growth 14 days GRAM STAIN: No organisms seen Rare Polymorphonuclear leukocytes Moderate Red Blood Cells Gram stain performed on cytospun specimen. Normal [facility] Comment on above: Performed By: #### 6 06-4 ####[facility]ATORYCLIA [id number] [address] Bacteria Spec Resp Culton Bacteria identified Respiratory culture Nom (Unsp spec) CULTURE, RESPIRATORY: No growth 2 days GRAM STAIN: No organisms seen No Polymorphonuclear Leukocytes Normal [facility] Comment on above: Performed By: #### 3 2355-0 ####[facility]ATORYCLIA [id number] [address] STATES OF [facility] Basic metabolic 2000 panelon 06-01-2021 Anion gap [Moles/Vol] 8 mmol/L Low 9-18 [facility] Comment on above: Order Comment: Speci men Type: BLOOD SPECIMEN Performed By: #### 2 4321-2, , 2776-05 ####[facility]ORYCLIA [id number] [address] [place] Calcium [Mass/Vol] 7.8 mg/dL Low 8.5-10.2 [facility] Comment on above: Order Comment: Speci men Type: BLOOD SPECIMEN Performed By: #### 2 4321-2, , 2776-05 ####[facility]ATORYCLIA [id number] [address] STATES OF [facility] Chloride [Moles/Vol] 109 mmol/L High 97-105 [facility] Comment on above: Order Comment: Speci men Type: BLOOD SPECIMEN Performed By: #### 2 4321-2, , 2776-05 ####[facility]ORYCLIA [id number] [address] [place] CO2 [Moles/Vol] 26 mmol/L Normal 22-30 [facility] Comment on above: Order Comment: Speci men Type: BLOOD SPECIMEN Performed By: #### 2 4321-2, , 2776-05 ####[facility]ORYCLIA [id number] [address] [place] Creatinine [Mass/Vol] 0.82 mg/dL Normal 0.73-1.22 [facility] Comment on above: Order Comment: Speci men Type: BLOOD SPECIMEN Performed By: #### 2 4321-2, , 2776-05 ####[facility]ATORYCLIA [id number] [place] [address] [place] GFR/1.73 sq M.predicted MDRD (S/P/Bld) [Vol rate/Area] mL/min/{1.73_m2} Normal [facility] Comment on above: Order Comment: [...] actual GFR. Performed By: #### 2 4321-2, 69898-8, 2777-1 ####[facility] LABORATORYCLIA [id number] [place] [address] [place] Glucose [Mass/Vol] 105 mg/dL High 74-99 [facility] Comment on above: Order Comment: Speci men Type: BLOOD SPECIMEN Result Comment: The [place] Diabetes Association (ADA) provides guidance for cutoff [...] Standards of Medical Care in Diabetes 2016, [place] [employer]. Diabetes Care. 2016.39(Suppl 1). Performed By: #### 2 4321-2, 53425-6, 7- ####[facility]ORATORYCLIA [id number] [place] [address] [place] Potassium [Moles/Vol] 3.8 mmol/L Normal 3.7-5.1 [facility] Comment on above: Order Comment: Speci men Type: BLOOD SPECIMEN Performed By: #### 2 4321-2, 14841-2, 2776- ####[facility] LABORATORYCLIA [id number] [address] Sodium [Moles/Vol] 143 mmol/L Normal 136-144 [facility] Comment on above: Order Comment: Speci men Type: BLOOD SPECIMEN Performed By: #### 2 4321-2, , 2776-05 ####[facility]ORATORYCLIA [id number] [address] Urea nitrogen [Mass/Vol] 15 mg/dL Normal 9-24 [facility] Comment on above: Order Comment: Speci men Type: BLOOD SPECIMEN Performed By: #### 2 4321-2, , 2776-05 ####[facility] LABORATORYCLIA [id number] [address] CBC panel Auto (Bld)on 06-01 Erythrocyte distribution width (RBC) [Ratio] 15.4 % High 11.5-15.0 [facility] Comment on above: Order Comment: Speci men Type: BLOOD SPECIMEN Performed By: #### 5 8410-2 ####[facility]ORATORYCLIA [id number] [address] Hematocrit (Bld) [Volume fraction] 38.4 % Low 39.0-51.0 [facility] Comment on above: Order Comment: Speci men Type: BLOOD SPECIMEN Performed By: #### 5 8410-2 ####[facility]ORATORYCLIA [id number] [address] Hemoglobin (Bld) [Mass/Vol] 11.1 g/dL Low 13.0-17.0 [facility] Comment on above: Order Comment: Speci men Type: BLOOD SPECIMEN Performed By: #### 5 8410-2 ####[facility]ORATORYCLIA [id number] [address] MCH (RBC) [Entitic mass] 26.9 pg Normal 26.0-34.0 [facility] Comment on above: Order Comment: Speci men Type: BLOOD SPECIMEN Performed By: #### 5 8410-2 ####[facility] LABORATORYCLIA [id number] [address] MCHC (RBC) [Mass/Vol] 28.9 g/dL Low 30.5-36.0 [facility] Comment on above: Order Comment: Speci men Type: BLOOD SPECIMEN Performed By: #### 5 8410-2 ####[facility]ORATORYCLIA [id number] [address] MCV (RBC) [Entitic vol] 93.2 fL Normal 80.0-100.0 [facility] Comment on above: Order Comment: Speci men Type: BLOOD SPECIMEN Performed By: #### 5 8410-2 ####[facility] LABORATORYCLIA [id number] [address] Nucleated RBC (Bld) [#/Vol] 10*3/uL Normal <0.01 [facility] Comment on above: Order Comment: Speci men Type: BLOOD SPECIMEN Performed By: #### 5 8410-2 ####[facility]ORATORYCLIA [id number] [address] Platelet mean volume (Bld) [Entitic vol] 10.2 fL Normal 9.0-12.7 [facility] Comment on above: Order Comment: Speci men Type: BLOOD SPECIMEN Performed By: #### 5 8410-2 ####[facility]ORATORYCLIA [id number] [address] Platelets (Bld) [#/Vol] 231 10*3/uL Normal 150-400 [facility] Comment on above: Order Comment: Speci men Type: BLOOD SPECIMEN Performed By: #### 5 8410-2 ####[facility] LABORATORYCLIA [id number] [address] [place] RBC (Bld) [#/Vol] 4.12 10*6/uL Low 4.20-6.00 [facility] Comment on above: Order Comment: Speci men Type: BLOOD SPECIMEN Performed By: #### 5 8410-2 ####[facility]ORATORYCLIA [id number] [address] WBC (Bld) [#/Vol] 10.99 10*3/uL Normal 3.70-11.00 [facility] Comment on above: Order Comment: Speci men Type: BLOOD SPECIMEN Performed By: #### 5 8410-2 ####[facility]ORATORYCLIA [id number] [address] CONSULT PROGon 06-01-2021 CONSULT PROG Normal [facility] CSF MANUAL DIFFon 06-01-2021 DIF TTL, CSF 100 cells counted Normal [facility] Comment on above: Order Comment: Speci men Type: CEREBROSPINAL FLUID Performed By: #### 3 4563-7, [id number] ####[facility]ORATORYCLIA [id number] [address] [place] LYMPH%, CSF 11 % Low 50-90 [facility] Comment on above: Order Comment: Speci men Type: CEREBROSPINAL FLUID Performed By: #### 3 4563-7, [id number] ####[facility]ORATORYCLIA [id number] [address] [place] MONO%, CSF 10 % Normal 10-50 [facility] Comment on above: Order Comment: Speci men Type: CEREBROSPINAL FLUID Performed By: #### 3 4563-7, [id number] ####[facility]ORATORYCLIA [id number] [address] [place] NEUT%, CSF 79 % High 0-3 [facility] Comment on above: Order Comment: Speci men Type: CEREBROSPINAL FLUID Performed By: #### 3 4563-7, [id number] ####[facility]ATORYCLIA [id number] [address] BRAIN WO IVCONon 06-01-19 CT BRAIN WO IVCON Normal [facility] Cell count panel (CSF)on Clarity (CSF) Clear Normal Clear [facility] Comment on above: Order Comment: Speci men Type: CEREBROSPINAL FLUID Performed By: #### 3 4563-7, [id number] ####[facility]ORATORYCLIA [id number] [address] Clarity (Unsp spec) Not Indicated Normal Clear [facility] Comment on above: Order Comment: Speci men Type: CEREBROSPINAL FLUID Performed By: #### 3 4563-7, [id number] ####[facility]ORATORYCLIA [id number] [address] Color (CSF) Colorless Normal Colorless [facility] Comment on above: Order Comment: Speci men Type: CEREBROSPINAL FLUID Performed By: #### 3 4563-7, [id number] ####[facility]ORATORYCLIA [id number] [address] Color (Spun CSF) Not Indicated Normal Colorless [facility] Comment on above: Order Comment: Speci men Type: CEREBROSPINAL FLUID Performed By: #### 3 4563-7, [id number] ####[facility]ORATORYCLIA [id number] [address] CSF T[employer] Normal [facility] Comment on above: Order Comment: Speci men Type: CEREBROSPINAL FLUID Performed By: #### 3 4563-7, [id number] ####[facility]ORATORYCLIA [id number] [address] RBC Manual cnt (CSF) [#/Vol] 171 cells/uL High 0-5 [facility] Comment on above: Order Comment: Speci men Type: CEREBROSPINAL FLUID Performed By: #### 3 4563-7, [id number] ####[facility]ORATORYCLIA [id number] [address] WBC Manual cnt (CSF) [#/Vol] 5 cells/uL Normal 0-5 [facility] Comment on above: Order Comment: Speci men Type: CEREBROSPINAL FLUID Performed By: #### 3 4563-7, [id number] ####[facility]ORATORYCLIA [id number] [place] [id number] [place] FUNGAL CULTUREon 06-01-2021 FUNGAL CULTURE CULTURE, FUNGAL: No Fungus isolated after 28 days Normal [facility] Comment on above: Performed By: #### F CUL ####[facility] LABORATORYCLIA [id number] [place] [address] [place] Glucose CSF-mCncon 2 Glucose (CSF) [Mass/Vol] 78 mg/dL High 40-70 [facility] Comment on above: Order Comment: Speci men Type: CEREBROSPINAL FLUID Result Comment: Lumb ar CSF glucose values of healthy patients are approximately 60% of the plasma values and must always be compared with a concurrently measured plasma value for adequate clinical interpretation.References: 1. Glucose HK (GLUC3) [package insert V 12.0 Armenian]. [employer], [place], [place]. September 2015. 2. Michelle Moore, Loki, H. (2015). Chapter 7: Glucose and Lactate. FGarfield Alcocer al.(eds.), Cerebrospinal Fluid in Clinical Neurology. Miner: [employer]. Performed By: #### 2 342-4, 2880-3 ####[facility] LABORATORYCLIA [id number] [place] [address] [place] HERPES SIMPLEX CSFon 022 HERPES SIMPLEX CSF HSV PCR SPEC SOURCE: Cerebrospinal Fluid HSV-1: Negative for Herpes Simplex Virus Type 1 by PCR HSV-2: Negative for Herpes Simplex Virus Type 2 by PCR Normal [facility] Comment on above: Performed By: #### H [facility] ####[facility] LABCLIA [id number] [place] [address] [id number] [address] [place] Lactate (Bld) [Moles/Vol]on 06-01-2021 Lactate [Moles/Vol] 0.5 mmol/L Normal 0.5-2.2 [facility] Comment on above: Order Comment: Speci men Type: BLOOD SPECIMEN Performed By: #### 3 2693-4 ####[facility]ORATORYCLIA [id number] [place] [id number] [facility] [place] MENINGITIS ENCEPHALITIS BIOF IREon 06-01-2021 MENINGITIS ENCEPHALITIS BIOFIRE Negative Normal [facility] Comment on above: Order Comment: Speci men Type: CEREBROSPINAL FLUID Performed By: #### M GEBF ####[facility]ITALCLIA [id number] [place] [address] Magnesium SerPl-mCncon 06-01 Magnesium [Mass/Vol] 2.2 mg/dL Normal 1.7-2.3 [facility] Comment on above: Order Comment: Speci men Type: BLOOD SPECIMEN Performed By: #### 2 4321-2, 30579-8, 2777-1 ####[facility]ORATORYCLIA [id number] [address] Microorganism Spec Culton Microorganism identified Cx Nom (Unsp spec) CULTURE, AFB: No Acid Fast Bacilli isolated after 42 days AFB STAIN: No acid fast bacilli seen by flurochrome stain Normal [facility] Comment on above: Performed By: #### 1 1475-1 ####[facility]ORATORYCLIA [id number] [address] [place] PROCALCITONIN (LAB)on 2021 Procalcitonin [Mass/Vol] 0.08 ng/mL Normal <0.09 [facility] Comment on above: Order Comment: Speci men Type: BLOOD SPECIMEN Result Comment: For a guided interpretation of test results, please visit the Change in Procalcitonin Calculator, [email or web address]. Performed By: #### P ROCAL ####[facility]ORATORYCLIA [id number] [address] [place] Phosphate SerPl-mCncon 06-01 Phosphate [Mass/Vol] 3.5 mg/dL Normal 2.7-4.8 [facility] Comment on above: Order Comment: Speci men Type: BLOOD SPECIMEN Performed By: #### 2 4321-2, 29698-6, 2777-1 ####[facility]ORATORYCLIA [id number] [address] STATES OF [facility] Prot CSF-mCncon 06-01-2021 Protein (CSF) [Mass/Vol] 52 mg/dL High 15-45 [facility] Comment on above: Order Comment: Speci men Type: CEREBROSPINAL FLUID Performed By: #### 2 342-4, 2880-3 ####[facility]ORATORYCLIA [id number] [address] Vancomycin random [Mass/Vol] on 06-01-2021 Vancomycin [Mass/Vol] 14.6 ug/mL Normal 10.0-20.0 [facility] Comment on above: Order Comment: Speci men Type: BLOOD SPECIMEN Result Comment: Refe rence ranges and high/low indicator flags are provided as general guidelines only. The treating physician must determine appropriate target levels/dosing based on the specific clinical situation. Performed By: #### 4 091-5 ####[facility]ORATORYCLIA [id number] [address] XR CHEST 1V FRONTALon 2021 XR CHEST 1V FRONTAL Normal [facility] XR CHEST 1V FRONTAL Normal [facility] XR NECK SOFT TISSUE 2V AP/LA Ton 06-01-2021 XR NECK SOFT TISSUE 2V AP/LAT Normal [facility] XR SKULL 2V AP/LATon 022 XR SKULL 2V AP/LAT Normal [facility] ALLIED HEALTHon 05-31-2021 ALLIED HEALTH HNO ID: [id number] Author: Christina Lynne RT(R) Service: Radiology Author Type: Technologist Type: Allied Health Filed: 05/31/2021 5:48 PM Note Text: MRI tomorrow per RN. Normal [facility] ALLIED HEALTH Normal [facility] ALLIED HEALTH Normal [facility] ALLIED HEALTH Normal [facility] ANES POSTPROC EVALon 022 ANES POSTPROC EVAL Normal [facility] ANES PRE-OPon 05-31-2021 ANES PRE-OP Normal [facility] BRIEF OP NOTon 05-31-2021 BRIEF OP NOT Normal [facility] Bacteria Bld Culton 05-31-19 22 Bacteria identified Cx Nom (Bld) CULTURE, BLOOD: No growth 5 days Normal [facility] Comment on above: Performed By: #### 6 00-7 ####[facility]ORATORYCLIA [id number] [place] [address] [place] Bacteria CSF Culton 05-31-19 22 Bacteria identified Cx Nom (CSF) CULTURE, CSF: No growth 14 days GRAM STAIN: No organisms seen Rare Polymorphonuclear leukocytes Rare Red Blood Cells Gram stain performed on cytospun specimen. Normal [facility] Comment on above: Performed By: #### 6 06-4 ####[facility]ORATORYCLIA [id number] [place] [address] [place] Basic metabolic 2000 panelon 05-31-2021 Anion gap [Moles/Vol] 9 mmol/L Normal 9-18 [facility] Comment on above: Order Comment: Speci men Type: BLOOD SPECIMEN Performed By: #### 2 777-1, , ####[facility]ORATORYCLIA [id number] [place] [address] [place] Calcium [Mass/Vol] 8.2 mg/dL Low 8.5-10.2 [facility] Comment on above: Order Comment: Speci men Type: BLOOD SPECIMEN Performed By: #### 2 777-1, 61392-1, ####[facility]ORATORYCLIA [id number] [address] [place] Chloride [Moles/Vol] 110 mmol/L High 97-105 [facility] Comment on above: Order Comment: Speci men Type: BLOOD SPECIMEN Performed By: #### 2 777-1, 51048-5, ####[facility]ATORYCLIA [id number] [place], [place] [address] [place] [address] STATES OF [facility] CO2 [Moles/Vol] 27 mmol/L Normal 22-30 [facility] Comment on above: Order Comment: Speci men Type: BLOOD SPECIMEN Performed By: #### 2 777-1, 49339-4, ####[facility]ORATORYCLIA [id number] [place] [id number] [place] Creatinine [Mass/Vol] 0.85 mg/dL Normal 0.73-1.22 [facility] Comment on above: Order Comment: Speci men Type: BLOOD SPECIMEN Performed By: #### 2 777-1, 50985-0, ####[facility]ORATORYCLIA [id number] [address] GFR/1.73 sq M.predicted MDRD (S/P/Bld) [Vol rate/Area] mL/min/{1.73_m2} Normal [facility] Comment on above: Order Comment: [...] actual GFR. Performed By: #### 2 777-1, 21722-5, ####[facility]ORATORYCLIA [id number] [address] STATES OF [facility] Glucose [Mass/Vol] 111 mg/dL High 74-99 [facility] Comment on above: Order Comment: Speci men Type: BLOOD SPECIMEN Result Comment: The [place] Diabetes Association (ADA) provides guidance for cutoff [...] Standards of Medical Care in Diabetes 2016, [place] [employer]. Diabetes Care. 2016.39(Suppl 1). Performed By: #### 2 777-1, , ####[facility]ORATORYCLIA [id number] [address] STATES OF [facility] Potassium [Moles/Vol] 3.7 mmol/L Normal 3.7-5.1 [facility] Comment on above: Order Comment: Speci men Type: BLOOD SPECIMEN Performed By: #### 2 777-1, , ####[facility]ORATORYCLIA [id number] [address] STATES OF [facility] Sodium [Moles/Vol] 146 mmol/L High 136-144 [facility] Comment on above: Order Comment: Speci men Type: BLOOD SPECIMEN Performed By: #### 2 777-1, , ####[facility]ORATORYCLIA [id number] [address] [place] Urea nitrogen [Mass/Vol] 16 mg/dL Normal 9-24 [facility] Comment on above: Order Comment: Speci men Type: BLOOD SPECIMEN Performed By: #### 2 777-1, , ####[facility]ORATORYCLIA [id number] [address] [place] CASE MGT INIT ASSESon 2021 CASE MGT INIT ASSES Normal [facility] CBC W Auto Differential pane l (Bld)on 05-31-2021 Basophils (Bld) [#/Vol] 0.04 10*3/uL Normal <0.11 [facility] Comment on above: Order Comment: Speci men Type: BLOOD SPECIMEN Performed By: #### 5 7021-8 ####[facility]ORYCLIA [id number] [address] Basophils/100 WBC (Bld) 0.5 % Normal [facility] Comment on above: Order Comment: Speci men Type: BLOOD SPECIMEN Performed By: #### 5 7021-8 ####[facility]ATORYCLIA [id number] [address] Differential cell count method Nom (Bld) Auto Normal [facility] Comment on above: Order Comment: Speci men Type: BLOOD SPECIMEN Performed By: #### 5 7021-8 ####[facility]ORYCLIA [id number] [address] Eosinophils (Bld) [#/Vol] 0.27 10*3/uL Normal <0.46 [facility] Comment on above: Order Comment: Speci men Type: BLOOD SPECIMEN Performed By: #### 5 7021-8 ####[facility]ORYCLIA [id number] [address] Eosinophils/100 WBC (Bld) 3.3 % Normal [facility] Comment on above: Order Comment: Speci men Type: BLOOD SPECIMEN Performed By: #### 5 7021-8 ####[facility]ATORYCLIA [id number] [address] Erythrocyte distribution width (RBC) [Ratio] 15.4 % High 11.5-15.0 [facility] Comment on above: Order Comment: Speci men Type: BLOOD SPECIMEN Performed By: #### 5 7021-8 ####[facility]ATORYCLIA [id number] [address] Hematocrit (Bld) [Volume fraction] 37.9 % Low 39.0-51.0 [facility] Comment on above: Order Comment: Speci men Type: BLOOD SPECIMEN Performed By: #### 5 7021-8 ####[facility]ORATORYCLIA [id number] [address] Hemoglobin (Bld) [Mass/Vol] 11.5 g/dL Low 13.0-17.0 [facility] Comment on above: Order Comment: Speci men Type: BLOOD SPECIMEN Performed By: #### 5 7021-8 ####[facility] LABORATORYCLIA [id number] [address] IMMATURE GRAN % 0.4 % Normal [facility] Comment on above: Order Comment: Speci men Type: BLOOD SPECIMEN Performed By: #### 5 7021-8 ####[facility] LABORATORYCLIA [id number] [address] IMMATURE GRAN ABS 0.03 k/uL Normal <0.10 [facility] Comment on above: Order Comment: Speci men Type: BLOOD SPECIMEN Performed By: #### 5 7021-8 ####[facility]ORATORYCLIA [id number] [address] Lymphocytes (Bld) [#/Vol] 1.90 10*3/uL Normal 1.00-4.00 [facility] Comment on above: Order Comment: Speci men Type: BLOOD SPECIMEN Performed By: #### 5 7021-8 ####[facility] LABORATORYCLIA [id number] [address] Lymphocytes/100 WBC (Bld) 23.0 % Normal [facility] Comment on above: Order Comment: Speci men Type: BLOOD SPECIMEN Performed By: #### 5 7021-8 ####[facility] LABORATORYCLIA [id number] [address] MCH (RBC) [Entitic mass] 28.0 pg Normal 26.0-34.0 [facility] Comment on above: Order Comment: Speci men Type: BLOOD SPECIMEN Performed By: #### 5 7021-8 ####[facility] LABORATORYCLIA [id number] [address] MCHC (RBC) [Mass/Vol] 30.3 g/dL Low 30.5-36.0 [facility] Comment on above: Order Comment: Speci men Type: BLOOD SPECIMEN Performed By: #### 5 7021-8 ####[facility]ORYCLIA [id number] [address] STATES [facility] MCV (RBC) [Entitic vol] 92.4 fL Normal 80.0-100.0 [facility] Comment on above: Order Comment: Speci men Type: BLOOD SPECIMEN Performed By: #### 5 7021-8 ####[facility] LABORATORYCLIA [id number] [address] STATES OF [facility] Monocytes (Bld) [#/Vol] 0.60 10*3/uL Normal <0.87 [facility] Comment on above: Order Comment: Speci men Type: BLOOD SPECIMEN Performed By: #### 5 7021-8 ####[facility] LABORATORYCLIA [id number] [address] Monocytes/100 WBC (Bld) 7.3 % Normal [facility] Comment on above: Order Comment: Speci men Type: BLOOD SPECIMEN Performed By: #### 5 7021-8 ####[facility] LABORATORYCLIA [id number] [address] STATES OF [facility] Neutrophils (Bld) [#/Vol] 5.41 10*3/uL Normal 1.45-7.50 [facility] Comment on above: Order Comment: Speci men Type: BLOOD SPECIMEN Performed By: #### 5 7021-8 ####[facility]ATORYCL[facility] [id number] [address] [place] Neutrophils/100 WBC (Bld) 65.5 % Normal [facility] Comment on above: Order Comment: Speci men Type: BLOOD SPECIMEN Performed By: #### 5 7021-8 ####[facility]ORATORYCLIA [id number] [place] [address] [place] [place] Nucleated RBC (Bld) [#/Vol] 10*3/uL Normal <0.01 [facility] Comment on above: Order Comment: Speci men Type: BLOOD SPECIMEN Performed By: #### 5 7021-8 ####[facility] LABORATORYCLIA [id number] [address] Nucleated RBC/100 WBC (Bld) [Ratio] 0.0 /100 WBC Normal 0.0 [facility] Comment on above: Order Comment: Speci men Type: BLOOD SPECIMEN Performed By: #### 5 7021-8 ####[facility] LABORATORYCLIA [id number] [address] Platelet mean volume (Bld) [Entitic vol] 9.8 fL Normal 9.0-12.7 [facility] Comment on above: Order Comment: Speci men Type: BLOOD SPECIMEN Performed By: #### 5 7021-8 ####[facility] LABORATORYCLIA [id number] [address] Platelets (Bld) [#/Vol] 251 10*3/uL Normal 150-400 [facility] Comment on above: Order Comment: Speci men Type: BLOOD SPECIMEN Performed By: #### 5 7021-8 ####[facility] LABORATORYCLIA [id number] [address] RBC (Bld) [#/Vol] 4.10 10*6/uL Low 4.20-6.00 [facility] Comment on above: Order Comment: Speci men Type: BLOOD SPECIMEN Performed By: #### 5 7021-8 ####[facility] LABORATORYCLIA [id number] [address] WBC (Bld) [#/Vol] 8.25 10*3/uL Normal 3.70-11.00 [facility] Comment on above: Order Comment: Speci men Type: BLOOD SPECIMEN Performed By: #### 5 7021-8 ####[facility]ORATORYCLIA [id number] [address] CONSULTon 01-25-2022 CONSULT Normal [facility] CONSULT Normal [facility] CONSULT Normal [facility] CT BRAIN WO IVCONon 05-31-19 CT BRAIN WO IVCON Normal [facility] CT BRAIN WO IVCON Normal [facility] CT CHEST WO IVCONon 05-31-19 CT CHEST WO IVCON Normal [facility] Cortis SerPl-mCncon 05-31-19 Cortisol [Mass/Vol] 31.0 ug/dL High AM: 5.3-22.5, PM: 3.4-16.8 [facility] Comment on above: Order Comment: Speci men Type: BLOOD SPECIMEN Result Comment: Prov ided reference range is from 6-10 AM sample collection time.Cortisol Reference Range: 6-10 AM = 4.8-19.5 ug/dL, 4-8 PM = 2.5-11.9 ug/dL Performed By: #### 2 143-6, 3016-3 ####[facility] LABORATORYCLIA [id number] [address] Cryptoc Ag Spec Ql LAon 05-08 Cryptococcus sp Ag LA Ql (Unsp spec) Negative Normal [facility] Comment on above: Performed By: #### 4 3228-6 ####[facility] LABORATORYCLIA [id number] [address] OF [facility] HISTORY PHYSICALon HISTORY PHYSICAL Normal [facility] Magnesium [Mass/Vol] 2.2 mg/dL Normal 1.7-2.3 [facility] Comment on above: Order Comment: Speci men Type: BLOOD SPECIMEN Performed By: #### 2 777-1, 60026-7, 54171-8 ####[facility] LABORATORYCLIA [id number] [address] [place] NURSING PROGon 05-31-2021 NURSING PROG Normal [facility] NUTRITIONon 05-31-2021 NUTRITION Normal [facility] OPERATIVE NOon 05-31-2021 OPERATIVE NO Normal [facility] Phosphate SerPl-mCncon 05-31 Phosphate [Mass/Vol] 3.3 mg/dL Normal 2.7-4.8 [facility] Comment on above: Order Comment: Speci men Type: BLOOD SPECIMEN Performed By: #### 2 777-1, 04642-7, 00379-9 ####[facility] LABORATORYCLIA [id number] [address] OF [facility] STAPH AUREUS PCRon S. aureus and MRSA panel MEGAN+probe (Nose) Normal Negative [facility] Comment on above: Order Comment: Speci men Type: SWAB OF INTERNAL NOSE Result Comment: Nega tive for Staphylococcus aureus by PCR.Negative for MRSA by PCR Performed By: #### S APCR ####[facility] LABORATORYCLIA [id number] [address] [place] TSH SerPl-aCncon 05-31-2021 TSH Qn 0.829 m[IU]/L Normal 0.270-4.200 [facility] Comment on above: Order Comment: Speci men Type: BLOOD SPECIMEN Performed By: #### 2 143-6, 3016-3 ####[facility] LABORATORYCLIA [id number] [address] [place] XR CHEST 1V FRONTALon 2021 XR CHEST 1V FRONTAL Normal [facility] XR CHEST 1V FRONTAL Normal [facility] Blood Cultureon 05-30-2021 Bacteria identified Cx Nom (Bld) Culture Result - No growth 5 days Normal [facility] Comment on above: Performed By: #### C AD #### [facility] [address] [place] [address] [facility] [address] [place] [address] Bacteria identified Cx Nom (Bld) Sp. Request/Comment: - 8.2MLS Culture Result - No growth 5 days Normal [facility] Comment on above: Performed By: #### C AD #### [facility] [address] [place] [address] [facility] [address] [place], [place] [address] C-Reactive Proteinon 022 C-Reactive Protein 1.7 mg/dL High <0.9 [facility] Comment on above: Performed By: #### C RP ####[facility] [address] [place] [phone] CNDSon 05-30-2021 CN HNO ID: [id number] Author: Columba Carroll PA-C Service: Hospital Medicine Author Type: Physician Advisory Intern Type: Discharge Summary Filed: 05/30/2021 12:49 PM [...] Team: Attending Provider: Ayaka Menjivar MD Physician Advisory Intern: Columba Carroll PA-C Consulting: Lilo Mendoza MD [...] consulted. 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 Tele-neuro also suggested an MRI brain be obtained prior to LP to check MOTORS AND [employer]S TESTER shunt and decrease risk of herniation in neurosurgery capable facility. Transfer to [facility] requested. Sepsis lactate was 1.3. ABG showed pO2 67.8, placed patient on 2L NC.Follow B1, B12, and RPR pending. Transitions of Care Critical Issues: - patient transferred for 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 LABS AND PROCEDURES PENDING [...] intravenously q 1 (more content not included)... [facility] CONSULTon 05-30-2021 CONSULT HNO ID: [id number] Author: Juan Carlos Mckenzie MD Service: Infectious [...] vertebrae with counting from the craniocervical junction. Community Cultural Development Officer: OG Transcribe Date/Time: May 29 2021 8:59P Dictated by : CARLOS YOUNGER MD This examination was interpreted and the report reviewed and electronically signed by: CARLOS YOUNGER MD on May 29 2021 9:14PM EST ? CT CERVICAL SPINE WO (more content not included)... Normal [facility] CONSULT HNO ID: [id number] Author: Lilo Mendoza MD Service: Neurology General Author Type: Physician Type: Consults Filed: 05/30/2021 10:56 AM Note Text: [facility] TeleNeurology Consult Note Patient seen using [facility]. Recommendations are placed in the chart. Please review. For questions after hours, when teleneurologist is not available, for [place]: Please Page [phone] for the [facility] from 12pm to 8Am Admitting Provider/Consulted by:Hermes Roca MD Time of Note:05/30/2021 Patient Name:Andrew Sifuentes Admit Date:05/29/2021 Hospital Day:0 CC: altered mental status History of Present Illness: Anrdew Sifuentes is a 71 year old unknown handed male with limited information about past medical history including venous insufficiency s/p EVLT, hydrocepalus s/p MOT[employer] TESTER shunt in 1987 with multiple revisions and [...] [facility] CON[facility] 05-30-2021 CONSULT PROG [facility] CONSULT PROG HNO ID: [id number] Author: Shannon Gutierres [facility] Service: Pharmacy Author Type: Pharmacist Type: Consult Progress Note Filed: 05/30/2021 2:35 PM Note Text: PHARMACY VANCOMYCIN DOSING NOTE Patient Name: Andrew Sifuentes Admission Date: 05/29/2021 Date of Consult: 05/30/2021 Time of Consult: 2:32 PM Indication: 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 Age: [age] year old Allergies: ALLERGIES Allergen [...] Levels: No results found for: IMANI Gutierres [facility] Normal [facility] Creatinineon 05-30-2021 Creatinine [Mass/Vol] 0.86 mg/dL Normal 0.73-1.22 [facility] Comment on above: Performed By: #### C RET1 ####[facility] Ztszzbtoge2581 [phone] eGFR- Amer. >60 Normal [facility] Comment on above: Performed By: #### C RET1 ####[facility] [address] [place] [phone] eGFR-All Other Races >60 Normal [facility] Comment on above: Result Comment: eGFR [...] Performed By: #### C RET1 ####[facility] [address] [place] [phone] Crypto Antigen Deton 022 Crypto Antigen Det Sp. Request/Comment: - SST Test Result - Duplicate request Account Credited [facility] Comment on above: Performed By: #### C AD #### [facility] [address] [place] [address] Crypto Antigen Det Sp. Request/Comment: - SST Test Result - Cryptococcal antigen detection result: Negative By latex agglutination [facility] Comment on above: Performed By: #### C AD #### [facility] [address] [place] [address] [place] [phone] ED NOTEon 05-30-2021 ED NOTE HNO ID: [id number] Author: Aletha Lopez RN Service: ? Author Type: Registered Nurse Type: ED Notes Filed: 05/29/2021 11:16 PM Note Text: Patient changed for incontinent urine, labs redrawn and sent. Patient aware of plan to be admitted and agrees with plan [facility] HISTORY PHYSICALon HISTORY PHYSICAL Normal [facility] HISTORY PHYSICAL HNO ID: [id number] Author: Hermes Roca MD Service: Hospital Medicine Author Type: Physician Type: HANDP Filed: 05/30/2021 1:03 AM Note Text: DEPARTMENT OF HOSPITAL MEDICINE HISTORY AND PHYSICAL EXAM SERVICE DATE: 05/29/2021 SERVICE TIME: 11:18 PM Primary Care Physician: Mateus Burris MD NIGHT AND WEEKEND COVERAGE: Please page [phone] until 7:30am this morning. After 7:30am please check the treatment team banner and page the appropriate service. 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 Normal [facility] Magnesium SerPl-mCncon 05-30 Magnesium [Mass/Vol] 2.5 mg/dL High 1.7-2.3 [facility] Comment on above: Order Comment: Speci men Type: BLOOD SPECIMEN Performed By: #### 1 9123-9, 2777-1 ####[facility] LABORATORYCLIA [id number] [address] OF [facility] NURSING PROGon 05-30-2021 NURSING PROG HNO ID: [id number] Author: Precious Cervantes RN Service: ? Author Type: Registered Nurse Type: Nursing Progress Note Filed: 05/30/2021 11:26 AM Note Text: Nursing Progress Note Patient Name: Andrew Sifuentes Patient Location: [place] [address]/[id number] Daily Note: 0700- Report received from retail shift leader RN, patient resting in bed at this time, call light within reach, bed low and locked. Asked the patient to state his name because retail shift leader RN was unable to complete his admission [...] [facility] NURSING PROG HNO ID: [id number] Author: Lyubov Day RN Service: ? Author Type: Registered Nurse Type: Nursing Progress Note Filed: 05/30/2021 1:27 AM Note Text: Nursing Progress Note Patient Name: Andrew Sifuentes Patient Location: [place] [address] [address] 0100: Patient is unresponsive to questions. Patient [...] #### 1 9123-9, 2777-1 ####[facility] LABORATORYCLIA [id number] [place] [address] [place] Sepsis Lactateon 05-30-2021 Sepsis Lactate 1.5 mmol/L Normal 0.5-2.0 [facility] Comment on above: Performed By: #### S LACT ####[facility] [address] [place] [phone] Syphilis Ttl w/Reflxon 05-30 Syphilis Interp Cannot exclude recen t Treponemal infection if specimen collected within 7 to 10 days after appearance of suspect lesions or 2 to 3 weeks after an exposure. Clinical correlation is required. Normal [facility] Comment on above: Performed By: #### S YPHTX, B1WB ####[facility] [address] [place], [place] [phone] Syphilis Screen Rslt Non-Reactive Normal Non Reactive [facility] Comment on above: Performed By: #### S YPHTX, B1WB ####[facility] [address] [place], [place] [phone] THERAPY NTon 05-30-2021 THERAPY NT HNO ID: [id number] Author: RADHA Andres/Felecia Service: Occupational Therapy Author Type: Occupational Therapist Type: Therapy (PT/OT/Speech/Resp) Filed: 05/30/2021 10:29 AM Note Text: OCCUPATIONAL THERAPY MISSED VISIT SERVICE DATE: 05/30/2021 SERVICE TIME: 1017 to 1019 ROOM: [place] [address] Attempted Evaluation. Patient not seen due to Not following commands. Per nursing patient was seen by neuro and they are talking about having him transferred to [facility] secondary to shunt concerns. Will re attempt in the event patient continues to be admitted at [facility] and is able to participate. SIGNATURE: RADHA Andres/Felecia PATIENT NAME: Andrew Sifuentes DATE: May 30, 2021 TIME: 10:21 AM [facility] THERAPY NT HNO ID: [id number] Author: Bette Velasquez PT Service: Physical Therapy Author Type: Physical Therapist Type: Therapy (PT/OT/Speech/Resp) Filed: 05/30/2021 8:42 AM Note Text: PHYSICAL THERAPY MISSED VISIT SERVICE DATE: 05/30/2021 SERVICE TIME: 0840 to 0840 ROOM: [place] [address] Attempted Evaluation. Patient not seen due to (pt difficult to awake per RN, very lethargic). Will re-attempt when schedule permits. SIGNATURE: Bette Velasquez, PT PATIENT NAME: Andrew Sifuentes DATE: May 30, 2021 TIME: 8:41 AM Normal [facility] Toxicology Screen,Uron 05-30 Amphetamines, Urine Negative Normal Negative [facility] [place] Comment on above: Result Comment: Cuto ff threshold at 1000 ng/mL. Performed By: #### C AD #### [facility] [address] [place] [phone] [facility] [address] [place] [address] Barbiturates, Urine Negative Normal Negative [facility] [place] Comment on above: Result Comment: Cuto ff threshold at 200 ng/mL. Performed By: #### C AD #### [facility] [address] [place] [phone] [facility] [address] [place] [phone] Benzodiazepines, Ur Negative Normal Negative [facility] [place] Comment on above: Result Comment: Cuto ff threshold at 200 ng/mL. Performed By: #### C AD #### [facility] [address] [place] [phone] [facility] [address] [place] [phone] Cannabinoids, Urine Negative Normal Negative [facility] [place] Comment on above: Result Comment: Cuto ff threshold at 50 ng/mL. Performed By: #### C AD #### [facility] [address] [place] [phone] [facility] [address] [place] [address] Cocaine, Urine Negative Normal Negative [facility] Comment on above: Result Comment: Cuto ff threshold at 300 ng/mL. Performed By: #### C AD #### [facility] [address] [place] [phone] [facility] [address] [place] [address] Opiates, Urine Negative Normal Negative [facility] Comment on above: Result Comment: Cuto ff threshold at 300 ng/mL. Performed By: #### C AD #### [facility] [address] [place] [phone] [place] [address] Oxycodone, Urine Negative Normal Negative [facility] Comment on above: Result Comment: Cuto ff [...] on the same specimen through Client Services ([phone]) if contacted within 48 hours of initial testing. [1]Substance Abuse and Mental Health Services Administration (2012). Clinical Drug Testing in Primary Care Technical Assistance Publication Series 32. Department of Health and Human Services, [place], p.10. Performed By: #### C AD #### [facility] [place] [phone] [place] [address] Phencyclidine, Urine Negative Normal Negative [facility] Comment on above: Result Comment: Cuto ff threshold at 25 ng/mL. Performed By: #### C AD #### [facility] [address] [place] [phone] [place] [phone] Troponin Ton 05-30-2021 Troponin T <0.010 Normal 0.000-0.029 [facility] Comment on above: Performed By: #### T NT ####[facility] [address] [place] [phone] Urinalysison 05-30-2021 Bilirubin, Urine Negative Normal Negative [facility] Comment on above: Performed By: #### C AD #### [facility] [address] [place] [address] [facility] [address] [place], [place] [address] Clarity (U) Slightly Cloudy Critically abnormal Clear [facility] Comment on above: Performed By: #### C AD #### [facility] [address] [place] [address] [facility] [address] [place], [place] [address] Color (U) Yellow Normal Yellow [facility] Comment on above: Performed By: #### C AD #### [facility] [address] [place] [address] [facility] [address] [place], [place] [address] Glucose Ql (U) Negative Normal Negative [facility] Comment on above: Performed By: #### C AD #### [facility] [address] [place] [address] [facility] [address] [place], [place] [address] Hemoglobin/Blood,Ur Negative Normal Negative [facility] Comment on above: Performed By: #### C AD #### [facility] [address] [place] [address] [facility] [address] [place], [place] [address] Ketones Ql (U) Negative Normal Negative [facility] Comment on above: Performed By: #### C AD #### [facility] [address] [place] [address] [facility] [address] [place], [place] [address] Leukest Negative Normal Negative [facility] Comment on above: Performed By: #### C AD #### [facility] [address] [place] [address] [facility] [address] [place], [place] [address] Nitrite Ql (U) Negative Normal Negative [facility] Comment on above: Performed By: #### C AD #### [facility] [place] [address] [place] [address] [place] [address] pH (U) 8.5 [pH] High 5.0-8.0 [facility] Comment on above: Performed By: #### C AD #### [facility] [address] [place], [place] [phone] [place] [address] Protein, Urine Negative Normal Negative [facility] Comment on above: Performed By: #### C AD #### [facility] [address] [place], [place] [address] [place] [address] Specific [place], Ur 1.015 Normal 1.005-1.030 [facility] Comment on above: Performed By: #### C AD #### [facility] [address] [place], [place] [address] [place] [address] Urobilinogen Qn (U) 0.2 {Marianne'U}/dL Normal 0.2-1.0 [facility] Comment on above: Performed By: #### C AD #### [facility] [address] [place], [place] [address] [place] [address] Vitamin B1, Whole Blon 05-30 Vitamin B1 (TDP), WB 207.1 nmol/L Normal 84.0-213.0 [facility] Comment on above: Result Comment: This assay measures the concentration of thiamine diphosphate (TDP), the primary active form of vitamin B1. Approximately 90 percent of vitamin B1 present in whole blood is TDP. Thiamine and thiamine monophosphate, which comprise the remaining 10 percent, are not measured. This test was developed and its performance characteristics determined by [facility]'s [facility] ([facility]). It has not been cleared or approved by the FDA. [facility] is regulated under CLIA as qualified to perform high complexity testing. This test is used for clinical purposes. It should not be regarded as investigational or for research. Performed By: #### S YPHTX, B1WB ####[facility] [address] [place], [place] [phone] Vitamin B12on 05-30-2021 Cobalamin (Vitamin B12) [Mass/Vol] 494 pg/mL Normal 232-1245 [facility] Comment on above: Performed By: #### C AD #### [facility] [address] [place] [address] [facility] [address] [place], [place] [address] ALLIED HEALTHon 05-29-2021 ALLIED HEALTH HNO ID: [id number] Author: RT Kitty(R) Service: Radiology Author Type: [...] Kitty(R) May 29, 2021 8:51 PM Normal [facility] ALLIED HEALTH HNO ID: [id number] Author: Markie Fish Service: ? Author Type: Cook Tortilla Type: Allied Health Filed: 05/29/2021 8:39 PM [...] Fish May 29, 2021 8:38 PM Normal [facility] CBC and Differentialon 05-29 Abs Baso 0.05 k/uL Normal <0.11 [facility] Comment on above: Performed By: #### C MP, MG1, CBCDIF ####[facility] [address] [place] [address] Abs Williams 0.72 k/uL Normal <0.87 [facility] Comment on above: Performed By: #### C MP, MG1, CBCDIF ####[facility] [address] [address] Abs Neut 7.86 k/uL High 1.45-7.50 [facility] Comment on above: Performed By: #### C MP, MG1, CBCDIF ####[facility] [address] [address] Absolute nRBC <0.01 Normal <0.01 [facility] Comment on above: Performed By: #### C MP, MG1, CBCDIF ####[place] [address] Basophils/100 WBC (Bld) 0.5 % Normal [facility] Comment on above: Performed By: #### C MP, MG1, CBCDIF ####[facility] [address] [place] [address] DTYPE Auto Diff Normal [facility] Comment on above: Performed By: #### C MP, MG1, CBCDIF ####[place] [address] Eosinophils (Bld) [#/Vol] 0.10 10*3/uL Normal <0.46 [facility] Comment on above: Performed By: #### C MP, MG1, CBCDIF ####[facility] [address] [place] [address] Eosinophils/100 WBC (Bld) 0.9 % Normal [facility] Comment on above: Performed By: #### C MP, MG1, CBCDIF ####[facility] [address] [place] [address] Erythrocyte distribution width (RBC) [Ratio] 15.5 % High 11.5-15.0 [facility] Comment on above: Performed By: #### C MP, MG1, CBCDIF ####[facility] [address] [address] Hematocrit (Bld) [Volume fraction] 41.6 % Normal 39.0-51.0 [facility] Comment on above: Performed By: #### C MP, MG1, CBCDIF ####[facility] [address] [place] [address] Hemoglobin (Bld) [Mass/Vol] 12.7 g/dL Low 13.0-17.0 [facility] Comment on above: Performed By: #### C MP, MG1, CBCDIF ####[facility] At[address]vi[address] [place] [address] Lymphocytes (Bld) [#/Vol] 2.04 10*3/uL Normal 1.00-4.00 [facility] Comment on above: Performed By: #### C MP, MG1, CBCDIF ####[facility] Wy[address]fl[address] [place] [address] Lymphocytes/100 WBC (Bld) 18.9 % Normal [facility] Comment on above: Performed By: #### C MP, MG1, CBCDIF ####[facility] [address] [place] [address] MCH 27.3 pG Normal 26.0-34.0 [facility] Comment on above: Performed By: #### C MP, MG1, CBCDIF ####[facility] N[address]xqth[address] [address] MCHC (RBC) [Mass/Vol] 30.5 g/dL Normal 30.5-36.0 [facility] Comment on above: Performed By: #### C MP, MG1, CBCDIF ####[facility] [address] [place] [phone] MCV (RBC) [Entitic vol] 89.5 fL Normal 80.0-100.0 [facility] Comment on above: Performed By: #### C MP, MG1, CBCDIF ####[facility] Wslhpmfatm2801 [address]7[address] Monocytes/100 WBC (Bld) 6.7 % Normal [facility] Comment on above: Performed By: #### C MP, MG1, CBCDIF ####[facility] Inc[address]qmp[address] [place], [place] [phone] Neutrophils/100 WBC (Bld) 73.0 % Normal [facility] Comment on above: Performed By: #### C MP, MG1, CBCDIF ####[facility] Oz[address]qgoer[address] [address] NRBCs 0.0 /100 WBC Normal 0 [facility] Comment on above: Performed By: #### C MP, MG1, CBCDIF ####[facility] [address] [place], [place] [phone] Platelet mean volume (Bld) [Entitic vol] 10.1 fL Normal 9.0-12.7 [facility] Comment on above: Performed By: #### C MP, MG1, CBCDIF ####[facility] [address] [place], [place] [phone] Platelets (Bld) [#/Vol] 291 10*3/uL Normal 150-400 [facility] Comment on above: Performed By: #### C MP, MG1, CBCDIF ####[facility] [address] [place], [place] [phone] RBC (Bld) [#/Vol] 4.65 10*6/uL Normal 4.20-6.00 [facility] Comment on above: Performed By: #### C MP, MG1, CBCDIF ####[facility] Rd[address] [place], [place] [phone] WBC (Bld) [#/Vol] 10.77 10*3/uL Normal 3.70-11.00 [facility] Comment on above: Performed By: #### C MP, MG1, CBCDIF ####[facility] [address] [place], [place] [phone] CT BRAIN WO IVCONon 05-29-19 CT BRAIN WO IVCON * * *Final Report* * * DATE OF EXAM: May 29 2021 8:42PM [facility] [address] - CT BRAIN WO IVCON / PROCEDURE REASON: Head trauma, headache * * * * Physician Interpretation * * * * EXAMINATION: CT CERVICAL SPINE WO IVCON, CT BRAIN WO IVCON CLINICAL HISTORY: C-spine trauma, NEXUS/CCR positive (accession [id number]), Head trauma, headache (accession [id number]) TECHNIQUE: Serial axial unenhanced images were obtained from the vertex to the foramen magnum. Spiral, high resolution axial unenhanced images were obtained from the skull base to the cervicothoracic junction with sagittal and coronal planar reconstructions. Dose-Length Product (DLP): 2132 mGy*cm. CT Dose Reduction Employed: Automated exposure control (AEC) COMPARISON: 08/13/[address] RESULT: BRAIN: Post-operative change: Right parietal approach [employer] TESTER shunt is intact. The intracranial fragments of [...] vertebrae with counting from the craniocervical junction. Community Cultural Development Officer: PSCB Transcribe Date/Time: May 29 2021 8:59P Dictated by : CARLOS YOUNGER MD This examination was interpreted and the report reviewed and electronically signed by: CARLOS YOUNGER MD on May 29 2021 9:14PM EST [id number] [facility] CT CERVICAL SPINE WO IVCONon 05-29-2021 CT CERVICAL SPINE WO IVCON * * *Final Report* * * DATE OF EXAM: May 29 2021 8:42PM [facility] 0505 - CT CERVICAL SPINE WO IVCON / PROCEDURE REASON: C-spine trauma, NEXUS/CCR positive * * * * Physician Interpretation * * * * EXAMINATION: CT CERVICAL SPINE WO IVCON, CT BRAIN WO IVCON CLINICAL HISTORY: C-spine trauma, NEXUS/CCR positive (accession [id number]), Head trauma, headache (accession [id number]) TECHNIQUE: Serial axial unenhanced images were obtained from the vertex to the foramen magnum. Spiral, high resolution axial unenhanced images were obtained from the skull base to the cervicothoracic junction with sagittal and coronal planar reconstructions. Dose-Length Product (DLP): 2132 mGy*cm. CT Dose Reduction Employed: Automated exposure control (AEC) COMPARISON: 08/13/[address] RESULT: BRAIN: Post-operative change: Right parietal approach [employer] TESTER shunt is intact. The intracranial fragments of [...] vertebrae with counting from the craniocervical junction. Community Cultural Development Officer: PSCB Transcribe Date/Time: May 29 2021 8:59P Dictated by : CARLOS YOUNGER MD This examination was interpreted and the report reviewed and electronically signed by: CARLOS YOUNGER MD on May 29 2021 9:14PM EST [id number] Normal [facility] Cepheid Bill only (EXCFR)on 05-29-2021 Cepheid Bill only (EXCFR) Billed for services performed Normal [facility] Comment on above: Performed By: #### C AD #### [facility] [address] [place] [address] [facility] [address] [place], [place] [address] Comp Metabolic Panelon 05-29 Albumin [Mass/Vol] 4.1 g/dL Normal 3.9-4.9 [facility] Comment on above: Performed By: #### C MP ####[facility] [address] [place] [address] ALP [Catalytic activity/Vol] 86 U/L Normal 38-113 [facility] Comment on above: Performed By: #### C MP ####[facility] [address]trqrl[address] [place] [address] ALT [Catalytic activity/Vol] 15 U/L Normal 10-54 [facility] Comment on above: Performed By: #### C MP ####[facility] [address] [place] [address] Anion gap [Moles/Vol] 9 mmol/L Normal 9-18 [facility] Comment on above: Performed By: #### C MP ####[facility] [address] [address] AST [Catalytic activity/Vol] 22 U/L Normal 14-40 [facility] Comment on above: Performed By: #### C MP ####[facility] X[address]coc[address] [place] [address] Bilirubin [Mass/Vol] 0.2 mg/dL Normal 0.2-1.3 [facility] Comment on above: Performed By: #### C MP ####[facility] [address] [place] [address] Calcium [Mass/Vol] 9.1 mg/dL Normal 8.5-10.2 [facility] Comment on above: Performed By: #### C MP ####[facility] Ez[address]chpg[address] [address] Chloride [Moles/Vol] 103 mmol/L Normal 97-105 [facility] Comment on above: Performed By: #### C MP ####[facility] [address] [address] CO2 [Moles/Vol] 29 mmol/L Normal 22-30 [facility] Comment on above: Performed By: #### C MP ####[facility] [address] [address] Creatinine [Mass/Vol] 0.89 mg/dL Normal 0.73-1.22 [facility] Comment on above: Performed By: #### C MP ####[facility] N[address] [address] eGFR- Amer. >60 Normal [facility] Comment on above: Performed By: #### C MP ####[facility] Nr[address] [address] eGFR-All Other Races >60 Normal [facility] Comment on above: Result Comment: eGFR [...] Performed By: #### C MP ####[facility] [address] [address] Glucose [Mass/Vol] 120 mg/dL High 74-99 [facility] Comment on above: Result Comment: The [place] Diabetes Association (ADA) provides guidance for cutoff [...] Standards of Medical Care in Diabetes 2016, [place] [employer]. Diabetes Care. 2016.39(Suppl 1). Performed By: #### C MP ####[facility] [address] [address] Potassium [Moles/Vol] 4.2 mmol/L Normal 3.7-5.1 [facility] Comment on above: Performed By: #### C MP ####[facility] R[address]tyx[address] [address] Protein [Mass/Vol] 7.1 g/dL Normal 6.3-8.0 [facility] Comment on above: Performed By: #### C MP ####[facility] [address] [place] [address] Sodium [Moles/Vol] 141 mmol/L Normal 136-144 [facility] Comment on above: Performed By: #### C MP ####[facility] [address] [place] [address] Urea nitrogen [Mass/Vol] 11 mg/dL Normal 9-24 [facility] Comment on above: Performed By: #### C MP ####[facility] Ye[address]lpxq[address] [place] [address] Albumin [Mass/Vol] 4.1 g/dL Normal 3.9-4.9 [facility] Comment on above: Performed By: #### C MP, MG1, CBCDIF ####[facility] [address]os[address] [place] [address] ALP [Catalytic activity/Vol] 86 U/L Normal 38-113 [facility] Comment on above: Performed By: #### C MP, MG1, CBCDIF ####[facility] Y[address] [place] [address] ALT Unable to assay due to interference from hemolysis. Suggest reorder as clinically indicated. Normal 10-54 [facility] Comment on above: Result Comment: Call ed to ED StephanLubna at 2128 on 05.29.21 by Sabino Performed By: #### C MP, MG1, CBCDIF ####[facility] [address] [address] Anion gap [Moles/Vol] 12 mmol/L Normal 9-18 [facility] Comment on above: Performed By: #### C MP, MG1, CBCDIF ####[facility] [address] [address] AST Unable to assay due to interference from hemolysis. Suggest reorder as clinically indicated. Normal 14-40 [facility] Comment on above: Result Comment: Call ed to ED Álvaro at 2128 on 05.29.21 by Sabino Performed By: #### C MP, MG1, CBCDIF ####[facility] [address]aq[address] [place] [address] Bilirubin [Mass/Vol] 0.2 mg/dL Normal 0.2-1.3 [facility] Comment on above: Performed By: #### C MP, MG1, CBCDIF ####[facility] [address] [address] Calcium [Mass/Vol] 9.0 mg/dL Normal 8.5-10.2 [facility] Comment on above: Performed By: #### C MP, MG1, CBCDIF ####[facility] [address] [place] [address] Chloride [Moles/Vol] 102 mmol/L Normal 97-105 [facility] Comment on above: Performed By: #### C MP, MG1, CBCDIF ####[facility] Jrbalmgnrm[address] [place] [address] CO2 [Moles/Vol] 27 mmol/L Normal 22-30 [facility] Comment on above: Performed By: #### C MP, MG1, CBCDIF ####[facility] [address]obo[address] [place] [address] Creatinine [Mass/Vol] 0.75 mg/dL Normal 0.73-1.22 [facility] Comment on above: Performed By: #### C MP, MG1, CBCDIF ####[facility] Ng[address]ytci[address] [place] [address] eGFR- Amer. >60 Normal [facility] Comment on above: Performed By: #### C MP, MG1, CBCDIF ####[facility] [address]hut[address] [place] [address] eGFR-All Other Races >60 Normal [facility] Comment on above: Result Comment: eGFR [...] #### C MP, MG1, CBCDIF ####[facility] [address]ht[address] [place] [address] Glucose [Mass/Vol] 112 mg/dL High 74-99 [facility] Comment on above: Result Comment: The [place] Diabetes Association (ADA) provides guidance for cutoff [...] Standards of Medical Care in Diabetes 2016, [place] Diabetes Association. Diabetes Care. 2016.39(Suppl 1). Performed By: #### C MP, MG1, CBCDIF ####[facility] [address] [place] [address] Potassium Unable to assay due to interference from hemolysis. Suggest reorder as clinically indicated. Normal 3.7-5.1 [facility] Comment on above: Result Comment: Call ed to ED Álvaro at 2129 on 05.29.21 by Sabino Performed By: #### C MP, MG1, CBCDIF ####[facility] [address] [place] [address] Protein [Mass/Vol] 7.3 g/dL Normal 6.3-8.0 [facility] Comment on above: Performed By: #### C MP, MG1, CBCDIF ####[facility] [address]ts[address] [place] [address] Sodium [Moles/Vol] 141 mmol/L Normal 136-144 [facility] Comment on above: Performed By: #### C MP, MG1, CBCDIF ####[facility] [address] [place] [phone] Urea nitrogen [Mass/Vol] 11 mg/dL Normal 9-24 [facility] Comment on above: Performed By: #### C MP, MG1, CBCDIF ####[facility] [address] [place] [phone] ED PROV NOTEon 05-29-2021 ED PROV NOTE HNO ID: [id number] Author: Shanell Slaughter MD Service: ? Author [...] No radiographic evidence of acute cardiopulmonary disease. Community Cultural Development Officer: OG Transcribe Date/Time: May 29 2021 8:53P [...] vertebrae with counting from the craniocervical junction. Community Cultural Development Officer: OG Transcribe Date/Time: May 29 2021 8:59P [...] vertebrae with counting from the craniocervical junction. Community Cultural Development Officer: OG Transcribe Date/Time: May 29 (more content not included)... Normal [facility] ED PROV NOTE HNO ID: [id number] Author: Flavio Pandya DO Service: Emergency Medicine Author Type: Physician Type: ED Provider Notes Filed: 05/29/2021 7:10 PM Note Text: ED Provider Note Patient Name: Andrew Sifuentes SERVICE DATE: 05/29/21 History Patient presents with: Fall 71 yo male non-smoker, hx of HTN, 2 MOTORS AND CONTR[employer]S TESTER shunts, PE (not on anticoagulation now), asthma, [...] with assistance from bedside clinician. Provider Location: [facility] Patient Location: Outpatient Hospital Physical Exam [...] Flavio Pandya, DO Flavio Pandya, 05/29/211909 Normal [facility] EXCOVD, Flu A/B, RSV (On int erfaces 1102,1120)on 05-29-2021 Influenza A PCR Negative [facility] Comment on above: Performed By: #### C AD #### [facility] [address] [place] [address] Influenza B PCR Negative [facility] Comment on above: Performed By: #### C AD #### [facility] [address] [place], [place] [id number] [place] [address] RSV PCR Negative [facility] Comment on above: Result Comment: This test has been authorized by FDA under an Emergency Use Authorization (EUA). Performed By: #### C AD #### [facility] [address] [place], [place] [id number] [place] [address] SARS-CoV-2 (COVID-19) RNA MEGAN+probe Ql (Unsp spec) UPPER RESPIRATORY TRACT SWAB Normal [facility] Comment on above: Performed By: #### C AD #### [facility] [address] [place], [place] [id number] [place] [address] SARS-CoV-2 (COVID-19) RNA MEGAN+probe Ql (Unsp spec) Negative for COVID19 (SARS CoV2) by RT-PCR or equivalent method. Normal Negative for COVID19 (SARS CoV2) by RT-PCR or equivalent method. [facility] Comment on above: Result Comment: This test has been authorized by FDA under an Emergency Use Authorization (EUA). Performed By: #### C AD #### [facility] [address] [place] [address] [facility] [address] [place], [place] [address] Magnesiumon 05-29-2021 Magnesium [Mass/Vol] 2.2 mg/dL Normal 1.7-2.3 [facility] Comment on above: Performed By: #### C MP, MG1, CBCDIF ####[facility] F[address]htdnt6[address] NT Pro BNPon 05-29-2021 PRO B Natr Peptide 303 pg/mL High <125 [facility] Comment on above: Performed By: #### N TBNP ####[facility] Oduynpcbco8804 [address] Troponin Ton 05-29-2021 Troponin T <0.010 Normal 0.000-0.029 [facility] Comment on above: Performed By: #### T NT ####[facility] [address] [place] [address] Troponin T Unable to assay due to interference from hemolysis. Suggest reorder as clinically indicated. Normal 0.000-0.029 [facility] Comment on above: Result Comment: Call ed to ED Álvaro at 2129 on 05.29.21 by Sabino Performed By: #### T NT ####[facility] [address] [place] [phone] XR CHEST 1V FRONTAL PORTon 0 05-29-2021 [...] No radiographic evidence of acute cardiopulmonary disease. Community Cultural Development Officer: PSCShilpa Transcribe Date/Time: May 29 2021 8:53P Dictated by : ROLY BANGURA MD This examination was interpreted and the report reviewed and electronically signed by: ROLY BANGURA MD on May 29 2021 8:54PM EST [id number] Normal [facility] 2020 Albumin [Mass/Vol] 3.9 g/dL Normal 3.4 - 5.0 [facility] Comment on above: Order Comment: PATIE NT FASTING Performed By: #### C MP #### [facility] [address] [place] [address] ALP [Catalytic activity/Vol] 71 U/L Normal 33 - 136 [facility] Comment on above: Order Comment: PATIE NT FASTING Performed By: #### C MP #### [facility] [address] [place] [address] ALT [Catalytic activity/Vol] 19 U/L Normal 10 - 52 [facility] Comment on above: Order Comment: PATIE NT FASTING Result Comment: Nasima ents treated with Sulfasalazine may generate falsely decreased results for ALT. Performed By: #### C MP #### [facility] [address] [place] [address] Anion gap [Moles/Vol] 13 mmol/L Normal 10 - 20 [facility] Comment on above: Order Comment: PATIE NT FASTING Performed By: #### C MP #### [facility] [address] [place] [address] AST [Catalytic activity/Vol] 20 U/L Normal 9 - 39 [facility] Comment on above: Order Comment: PATIE NT FASTING Performed By: #### C MP #### [facility] [address] [place] [address] Bilirubin [Mass/Vol] 0.6 mg/dL Normal 0.0 - 1.2 [facility] Comment on above: Order Comment: PATIE NT FASTING Performed By: #### C MP #### [facility] [address] [place] [address] Calcium [Mass/Vol] 9.0 mg/dL Normal 8.6 - 10.6 [facility] Comment on above: Order Comment: PATIE NT FASTING Performed By: #### C MP #### [facility] [address] [place] [address] Chloride [Moles/Vol] 103 mmol/L Normal 98 - 107 [facility] Comment on above: Order Comment: PATIE NT FASTING Performed By: #### C MP #### [facility] [address] [place] [address] Creatinine [Mass/Vol] 0.94 mg/dL Normal 0.50 - 1.30 [facility] Comment on above: Order Comment: PATIE NT FASTING Performed By: #### C MP #### [facility] [address] [place] [address] GFR- AM. >60 Normal >60 [facility] Comment on above: Order Comment: PATIE NT FASTING Result Comment: CALC ULATIONS OF ESTIMATED GFR ARE PERFORMED USING THE MDRD STUDY EQUATION FOR THE IDMS-TRACEABLE CREATININE METHODS. CLIN CHEM 2007;53:766-72 Performed By: #### C MP #### [facility] [address] [place] [address] GFR-NON AM. >60 Normal >60 [facility] Comment on above: Order Comment: PATIE NT FASTING Performed By: #### C MP #### [facility] [address] [place] [address] Glucose [Mass/Vol] 85 mg/dL Normal 74 - 99 [facility] Comment on above: Order Comment: PATIE NT FASTING Performed By: #### C MP #### [facility] [address] [place] [address] HCO3 (Bld) [Moles/Vol] 30 mmol/L Normal 21 - 32 [facility] Comment on above: Order Comment: PATIE NT FASTING Performed By: #### C MP #### [facility] [address] [place] [address] Potassium [Moles/Vol] 4.1 mmol/L Normal 3.5 - 5.3 [facility] Comment on above: Order Comment: PATIE NT FASTING Performed By: #### C MP #### [facility] [address] [place] [address] Protein [Mass/Vol] 6.6 g/dL Normal 6.4 - 8.2 [facility] Comment on above: Order Comment: PATIE NT FASTING Performed By: #### C MP #### [facility] [address] [place] [address] Sodium [Moles/Vol] 142 mmol/L Normal 136 - 145 [facility] Comment on above: Order Comment: PATIE NT FASTING Performed By: #### C MP #### [facility] [address] [place] [address] Urea nitrogen [Mass/Vol] 14 mg/dL Normal 6 - 23 [facility] Comment on above: Order Comment: PATIE NT FASTING Performed By: #### C MP #### [facility] [address] [place] [address] LIPID PANEL (CORONARY RISK 2 )on 09-03-2020 [...] dosing. Performed By: #### L IPID #### [facility] [address] [place] [address] Cholesterol in HDL [Mass/Vol] 50.1 mg/dL Normal [facility] Comment on above: Order Comment: PATIE NT FASTING Result Comment: . AGE VERY LOW LOW NORMAL HIGH 0-19 Y < 35 < 40 40-45 ---- 20-24 Y ---- < 40 >45 ---- >24 Y ---- < 40 40-60 >60 . Performed By: #### L IPID #### [facility] [address] [place] [address] Cholesterol in LDL [Mass/Vol] 130 mg/dL High [...] Performed By: #### L IPID #### [facility] [address] [place] [address] Cholesterol in VLDL [Mass/Vol] 30 mg/dL Normal 0 - 40 [facility] Comment on above: Order Comment: PATIE NT FASTING Performed By: #### L IPID #### [facility] [address] [place] [address] Cholesterol.total/Chol esterol in HDL [Mass ratio] 4.2 {ratio} Normal [facility] Comment on above: Order Comment: PATIE NT FASTING Result Comment: REF VALUES DESIRABLE < 3.4 HIGH RISK > 5.0 Performed By: #### L IPID #### [facility] [address] [place] [address] Triglyceride [Mass/Vol] 152 mg/dL High 0 - [...] dosing. Performed By: #### L IPID #### [facility] [address] [place] [address] PROSTATE SPEC.AG,SCREENon PROSTATE SPEC.AG,SCREEN 0.37 ng/mL Normal [...] [facility] using the [employer] PSA method, which is a sandwich immunoassay using chemiluminescence for quantitation. The assay is approved for measurement of prostate-specific antigen (PSA) in serum and may be used in conjunction with a digital rectal examination in men 50 years and older as an aid in detection of prostate cancer. 2-Oubjw-rcddipuoc inhibitors (e.g. Proscar, Finasteride, Avodart, Dutasteride and Elizabeth) for the treatment of BPH have been shown to lower PSA levels by an average of 50% after 6 months of treatment. Performed By: #### P SASC #### [facility] [address] [place] [address] TSH WITH REFLEX TO FREE T4 I F ABNORMALon 09-03-2020 TSH Qn 0.97 m[IU]/L Normal 0.44 - 3.98 [facility] Comment on above: Order Comment: PATIE NT FASTING Result Comment: TSH testing is performed using different testing methodology at [facility] than at other [facility]. Direct result comparisons should only be made within the same method. Performed By: #### T HYDS #### [facility] [address] [place] [address] CBC AND DIFFERENTIALon 09-02 % AUTOMATED IMMATURE [...] (cells/L). Performed By: #### C BCDF #### [facility] [address] [place] [address] Basophils (Bld) [#/Vol] 0.07 10*3/uL Normal 0.00 - 0.10 [facility] Comment on above: Order Comment: PATIE NT FASTING Result Comment: Auto mated WBC differential has been confirmed by manual smear. Performed By: #### C BCDF #### [facility] [address] [place] [address] Basophils/100 WBC (Bld) 0.9 % Normal 0.0 - 2.0 [facility] Comment on above: Order Comment: PATIE NT FASTING Performed By: #### C BCDF #### [facility] [address] [place] [address] Eosinophils (Bld) [#/Vol] 0.21 10*3/uL Normal 0.00 - 0.70 [facility] Comment on above: Order Comment: PATIE NT FASTING Performed By: #### C BCDF #### [facility] [address] [place] [address] Eosinophils/100 WBC (Bld) 2.8 % Normal 0.0 - 6.0 [facility] Comment on above: Order Comment: PATIE NT FASTING Performed By: #### C BCDF #### [facility] [address] [place] [address] Lymphocytes (Bld) [#/Vol] 2.28 10*3/uL Normal 1.20 - 4.80 [facility] Comment on above: Order Comment: PATIE NT FASTING Performed By: #### C BCDF #### [facility] [address] [place] [address] Lymphocytes/100 WBC (Bld) 30.9 % Normal 13.0 - 44.0 [facility] Comment on above: Order Comment: PATIE NT FASTING Performed By: #### C BCDF #### [facility] [address] [place] [address] Monocytes (Bld) [#/Vol] 0.50 10*3/uL Normal 0.10 - 1.00 [facility] Comment on above: Order Comment: PATIE NT FASTING Performed By: #### C BCDF #### [facility] [address] [place] [address] Monocytes/100 WBC (Bld) 6.8 % Normal 2.0 - 10.0 [facility] Comment on above: Order Comment: PATIE NT FASTING Performed By: #### C BCDF #### [facility] [address] [place] [address] Neutrophils (Bld) [#/Vol] 4.29 10*3/uL Normal 1.20 - 7.70 [facility] Comment on above: Order Comment: PATIE NT FASTING Performed By: #### C BCDF #### [facility] [address] [place] [address] Neutrophils/100 WBC (Bld) 58.3 % Normal 40.0 - 80.0 [facility] Comment on above: Order Comment: PATIE NT FASTING Performed By: #### C BCDF #### [facility] [address] [place] [address] Erythrocyte distribution width (RBC) [Ratio] 14.6 % High 11.5 - 14.5 [facility] Comment on above: Order Comment: PATIE NT FASTING Performed By: #### C BCDF #### [facility] [address] [place] [address] Hematocrit (Bld) [Volume fraction] 43.1 % Normal 41.0 - 52.0 [facility] Comment on above: Order Comment: PATIE NT FASTING Performed By: #### C BCDF #### [facility] [address] [place] [address] Hemoglobin (Bld) [Mass/Vol] 13.3 g/dL Low 13.5 - 17.5 [facility] Comment on above: Order Comment: PATIE NT FASTING Performed By: #### C BCDF #### [facility] [address] [place] [address] MCHC (RBC) [Mass/Vol] 30.9 g/dL Low 32.0 - 36.0 [facility] Comment on above: Order Comment: PATIE NT FASTING Performed By: #### C BCDF #### [facility] [address] [place] [address] MCV (RBC) [Entitic vol] 92 fL Normal 80 - 100 [facility] Comment on above: Order Comment: PATIE NT FASTING Performed By: #### C BCDF #### [facility] [address] [place] [address] NUCLEATED RBC 0.0 /100 WBC Normal 0.0-0.0 [facility] Comment on above: Order Comment: PATIE NT FASTING Performed By: #### C BCDF #### [facility] [address] [place] [address] Platelets (Bld) [#/Vol] 267 10*3/uL Normal 150 - 450 [facility] Comment on above: Order Comment: PATIE NT FASTING Performed By: #### C BCDF #### [facility] [address] [place] [address] RBC 4.69 x10E12/L Normal 4.50 - 5.90 [facility] Comment on above: Order Comment: PATIE NT FASTING Performed By: #### C BCDF #### [facility] [address] [place] [address] WBC (Bld) [#/Vol] 7.4 10*3/uL Normal 4.4 - 11.3 [facility] Comment on above: Order Comment: PATIE NT FASTING Performed By: #### C BCDF #### [facility] [address] [place] [address] RED CELL MORPHOLOGYon 2020 CHANELL CELLS Few Normal [facility] Comment on above: Order Comment: PATIE NT FASTING Performed By: #### M ORP2 #### [facility] [address] [place] [address] OVALOCYTES Few Normal [facility] Comment on above: Order Comment: PATIE NT FASTING Performed By: #### M ORP2 #### [facility] [address] [place] [address] POLYCHROMASIA Mild Normal [facility] Comment on above: Order Comment: PATIE NT FASTING Performed By: #### M ORP2 #### [facility] [address] [place] [address] RBC FRAGMENTS Few Normal [facility] Comment on above: Order Comment: PATIE NT FASTING Performed By: #### M ORP2 #### [facility] [address] [place] [address] RBC morphology finding Nom (Bld) See Below Normal [facility] Comment on above: Order Comment: PATIE NT FASTING Performed By: #### M ORP2 #### [facility] [address] [place] [address] No Panel Informationon 01-19 76 1 [facility] [place] Work Phone: [phone] [facility] [place] Work Phone: [phone] [facility] [place] Work Phone: [phone] [facility] [place] Work Phone: [phone] [facility] [place] Work Phone: 68 1 [facility] [place] Work Phone: [phone] 1 [facility] [place] Work Phone: [phone] 1 [facility] [...] [place] Work Phone: [email or web address] ?RetrieveTestByDateTime?P gzxsmiNF=[id number]&Date=1 09-13-2019&Time=15%3a11%3a 03%3a00&TestType=ECG&Site =1&OutputType=PDF&Ext=PDF [facility] [place] Work Phone: Otheron 11-13-2019 [facility] Complete Blood Count + Diffe [...] Neutrophils/100 WBC (Bld) 59.9 % See Below [facility] Work Phone: Comment on above: Reference Range: 40. 0 - 80.0 Platelets (Bld) [#/Vol] 270 {x10E9/L} 150 - 450 [facility] Work Phone: RBC (Bld) [#/Vol] 4.85 {x10E12/L} See Below [facility] Work Phone: Comment on above: Reference Range: 4.5 0 - 5.90 WBC (Bld) [#/Vol] 0.0 {/100_WBC} 0.0-0.0 [facility] Work Phone: WBC (Bld) [#/Vol] 7.2 {x10E9/L} 4.4 - 11.3 [facility] Work Phone: Complete Blood Count + Differential 0.1 % 0.0 - 0.9 [facility] Work Phone: Comment on above: Immature Granulocyte Count (IG) includes promyelocytes, myelocytes and metamyelocytes but does not include bands. Percent differential counts (%) should be interpreted in the context of the absolute cell counts (cells/L). Lipid Panelon 11-06-2019 Cholesterol [Mass/Vol] 181 mg/dL 0 - 199 [facility] Work Phone: Comment on above: . AGE [...] dosing. Cholesterol in HDL [Mass/Vol] 52.1 mg/dL [facility] Work Phone: Comment on above: . AGE VERY LOW LOW N ORMAL HIGH 0-19 Y < 35 < 40 40-45 ---- 20-24 Y ---- < 40 >45 ---- >24 Y ---- < 40 40-60 >60. Cholesterol in LDL [Mass/Vol] 97 mg/dL 0 - 99 [facility] Work Phone: Comment on above: . NEAR BORD AGE IZABELLA RABLE OPTIMAL HIGH HIGH VERY HIGH 0-19 Y 0 - 109 --- 110-129 >/= 130 ---- 20-24 Y 0 - 119 --- 120-159 >/= 160 ---- >24 Y 0 - 99 100-129 130-159 160-189 >/=190. Cholesterol.total/Chol esterol in HDL [Mass ratio] 3.5 {ratio} [facility] Work Phone: Comment on above: REF VALUESDESIRABLE < 3.4HIGH RISK > 5.0 Triglyceride [Mass/Vol] 158 mg/dL above high threshold 0 - 149 [facility] Work Phone: Comment on above: [...] Lipid Panel 32 mg/dL 0 - 40 [facility] Work Phone: Metabolic Panelon 11-06-2019 ALP [Catalytic activity/Vol] 70 U/L 33 - 136 [facility] Work Phone: Anion gap [Moles/Vol] 13 mmol/L 10 - 20 [facility] Work Phone: Bilirubin [Mass/Vol] 0.6 mg/dL 0.0 - 1.2 [facility] Work Phone: Calcium [Mass/Vol] 9.4 mg/dL 8.6 - 10.6 [facility] Work Phone: Chloride [Moles/Vol] 99 mmol/L 98 - 107 [facility] Work Phone: CO2 [Moles/Vol] 30 mmol/L 21 - 32 [facility] Work Phone: Creatinine [Mass/Vol] 0.87 mg/dL See Below [facility] Work Phone: Comment on above: Reference Range: 0.5 0 - 1.30 Glucose [Mass/Vol] 89 mg/dL 74 - 99 [facility] Work Phone: Potassium [Moles/Vol] 4.3 mmol/L 3.5 - 5.3 [facility] Work Phone: Protein [Mass/Vol] 7.3 g/dL 6.4 - 8.2 [facility] Work Phone: Sodium [Moles/Vol] 138 mmol/L 136 - 145 [facility] Work Phone: Urea nitrogen [Mass/Vol] 14 mg/dL 6 - 23 [facility] Work Phone: Otheron 11-06-2019 Albumin BCP dye [Mass/Vol] 4.4 g/dL 3.4 - 5.0 [facility] Work Phone: ALT With P-5'-P [Catalytic activity/Vol] 11 U/L 10 - 52 [facility] Work Phone: Comment on above: Patients treated wit h Sulfasalazine may generate falsely decreased results for ALT. AST With P-5'-P [Catalytic activity/Vol] 17 U/L 9 - 39 [facility] Work Phone: >60 >60 [facility] Work Phone: Comment on above: CALCULATIONS OF LUZMARIA MATED GFR ARE PERFORMED USING THE MDRD STUDY EQUATION FOR THE IDMS-TRACEABLE CREATININE METHODS. CLIN CHEM 2007;53:766-72 Culture, urine Bacteria identified Cx Nom (U) Mixed Gram Pos & Gram Neg Org [facility] Work Phone: Bacteria identified Cx Nom (U) Klebsiella pneumoniae sp pneum [facility] Work Phone: Vital Signs Date Time Vital Sign Value Performing Clinician Facility 09-13-2023 11:48-0400 Body height 175.3 cm Rebecca Buck MD Work Phone: [facility] 09-13-2023 11:48-0400 Body mass index (BMI) [Ratio] 25.84 kg/m2 Rebecca Buck MD Work Phone: [facility] 09-13-2023 11:48-0400 Body weight 79.38 kg Rebecca Buck MD Work Phone: [facility] 08-13-2023 09:56-0400 Body height 175.3 cm Rebecca Buck MD Work Phone: [facility] 08-13-2023 09:56-0400 Body mass index (BMI) [Ratio] 25.84 kg/m2 Rebecca Buck MD Work Phone: [facility] 08-13-2023 09:56-0400 Body weight 79.38 kg Rebecca Buck MD Work Phone: [facility] 03-02-2022 18:49-0400 Body temperature 98.01 [degF] Lanette Munguia DO Work Phone: [employer] 03-02-2022 18:49-0400 Diastolic blood pressure 72 mm[Hg] Lanettepriscilla Munguia DO Work Phone: [employer] 03-02-2022 18:49-0400 Heart rate 94 /min Lanette Munguia DO Work Phone: [employer] 03-02-2022 18:49-0400 Respiratory rate 18 /min Lanette Munguia DO Work Phone: [employer] 03-02-2022 18:49-0400 SaO2% (BldA) [Mass fraction] 98 % Lanette Munguia DO Work Phone: [employer] 03-02-2022 18:49-0400 Systolic blood pressure 104 mm[Hg] Lanette Munguia DO Work Phone: [employer] 03-02-2022 11:55-0400 Body height 175.3 cm Lanettepriscilla Munguia DO Work Phone: [employer] 03-02-2022 11:55-0400 Body mass index (BMI) [Ratio] 25.84 kg/m2 Lanette Munguia DO Work Phone: [employer] 03-02-2022 11:55-0400 Body weight 79.38 kg Lanette Munguia DO Work Phone: [facility] 12-22-2021 02:08-0400 Diastolic blood pressure 67 mm[Hg] Sharon Olivia MD Work Phone: [facility] 12-22-2021 02:08-0400 Heart rate 77 /min Sharon Olivia MD Work Phone: [facility] 12-22-2021 02:08-0400 Respiratory rate 16 /min Sharon Olivia MD Work Phone: [facility] 12-22-2021 02:08-0400 SaO2% (BldA) [Mass fraction] 96 % Sharon Olivia MD Work Phone: [facility] 12-22-2021 02:08-0400 Systolic blood pressure 108 mm[Hg] Sharon Olivia MD Work Phone: [facility] 12-21-2021 23:52-0400 Body height 175.3 cm Sharon Olivia MD Work Phone: [facility] 12-21-2021 23:52-0400 Body mass index (BMI) [Ratio] 25.84 kg/m2 Sharon Olivia MD Work Phone: [facility] 12-21-2021 23:52-0400 Body temperature 97.9 [degF] Sharon Olivia MD Work Phone: [facility] 12-21-2021 23:52-0400 Body weight 79.38 kg Sharon Olivia MD Work Phone: [facility] 11-01-2021 08:41-0400 Diastolic blood pressure 77 mm[Hg] Dante Kim MD Work Phone: [facility] 11-01-2021 08:41-0400 Heart rate 75 /min Dante Kim MD Work Phone: [facility] 11-01-2021 08:41-0400 Respiratory rate 16 /min Dante Kim MD Work Phone: [facility] 11-01-2021 08:41-0400 SaO2% (BldA) [Mass fraction] 97 % Dante Kim MD Work Phone: [facility] 11-01-2021 08:41-0400 Systolic blood pressure 112 mm[Hg] Dante Kim MD Work Phone: [facility] 10-31-2021 19:13-0400 Body height 177.8 cm Dante Kim MD Work Phone: [facility] 10-31-2021 19:13-0400 Body mass index (BMI) [Ratio] 27.26 kg/m2 Dante Kim MD Work Phone: [facility] 10-31-2021 19:13-0400 Body temperature 98.49 [degF] Dante Kim MD Work Phone: [facility] 10-31-2021 19:13-0400 Body weight 86.18 kg Dante Kim MD Work Phone: [facility] 10-29-2021 07:38-0400 Body temperature 97.81 [degF] Lisa Miguel Angel DO Work Phone: [facility] 10-29-2021 07:38-0400 Diastolic blood pressure 79 mm[Hg] Lisa Miguel Angel DO Work Phone: [facility] 10-29-2021 07:38-0400 Heart rate 80 /min Lisa Miguel Angel DO Work Phone: [facility] 10-29-2021 07:38-0400 Respiratory rate 18 /min Lisa Miguel Angel DO Work Phone: [facility] 10-29-2021 07:38-0400 SaO2% (BldA) [Mass fraction] 96 % Lisa Miguel Angel DO Work Phone: [facility] 10-29-2021 07:38-0400 Systolic blood pressure 123 mm[Hg] Lisa Miguel Angel DO Work Phone: [facility] 10-25-2021 13:55-0400 Body height 170.2 cm Lisa Miguel Angel DO Work Phone: [facility] 10-21-2021 00:57-0400 Body mass index (BMI) [Ratio] 37.58 kg/m2 Lisa Michelle DO Work Phone: [facility] 10-21-2021 00:57-0400 Body weight 108.86 kg Lisa Michelle DO Work Phone: [facility] 07-13-2020 13:21-0500 BMI (Body Mass Index) [...] BSA (Body Surface Area) 2.36 m2 Shiela Lu[facility] Work Phone: 04-13-2020 15:33-0500 BMI (Body Mass Index) 40.32 kg/m2 [facility] Work Phone: 04-13-2020 15:33-0500 Body weight 123.83 kg [facility] Work Phone: 04-13-2020 15:33-0500 BP Diastolic 82 mm[Hg] Wing Ritter [facility] Work Phone: Comment on above: Location: [facility]; Position: Sitting 04-13-2020 15:33-0500 BP Systolic 145 mm[Hg] Wing Ritter [facility] Work Phone: Comment on above: Location: [facility]; Position: Sitting 04-13-2020 15:33-0500 BSA (Body Surface Area) 2.36 m2 [facility] Work Phone: 04-13-2020 15:33-0500 Height 175.26 cm [facility] Work Phone: 04-13-2020 15:33-0500 Pulse (Heart Rate) 98 /min [facility] Work Phone: 04-13-2020 15:33-0500 Pulse Oximetry 98 % [facility] Work Phone: Comment on above: Source: 04-13-2020 15:33-0500 0 1 [facility] Work Phone: Comment on above: Pain Scale 01-20-2020 16:39-0400 Body height 175.26 cm Monika Staley MD [facility] [address] [place] Work Phone: 01-20-2020 16:39-0400 Body mass index (BMI) [Ratio] 39.28 kg/m2 Monika Staley MD WX-Wubggzpcso-Vlv [facility] [address] [place] Work Phone: 01-20-2020 16:39-0400 Body surface area Derived from formula 2.33 m2 Monika Staley MD KS-Rfiihetorl-Ncu [facility] [address] [place] Work Phone: 01-20-2020 16:39-0400 Body weight 120.66 kg Monika Staley MD [facility] [place] Work Phone: 01-20-2020 16:39-0400 Diastolic blood pressure 84 mm[Hg] Monika Staley MD TO-Mwtbnqdrhu-Zzc [facility] [address] [place] Work Phone: Comment on above: Location: [facility]; Position: Sitting 01-20-2020 16:39-0400 Heart rate 80 /min Monika Staley MD [facility] [place] Work Phone: 01-20-2020 16:39-0400 SaO2% (BldA) [Mass fraction] 100 % Monika Staley MD SU-Uueqgcncmo-Nfd [facility] [address] [place] Work Phone: Comment on above: Source: 01-20-2020 16:39-0400 Systolic blood pressure 144 mm[Hg] Monika Staley MD YS-Yiprrmkvmz-Bew r[facility] [address] [place] Work Phone: Comment on above: Location: E; Position: Sitting 11-06-2019 15:29-0400 BMI (Body Mass [...] Date Encounter Type Care Provider Facility Start: 03-09-2025 ambulatory Monika Carlos ty:[facility] Start: 03-05-2025 ambulatory Shiela Luís Facili ty:[facility] Start: 03-02-2025 ambulatory Shiela Luís Facili ty:[facility] Start: 02-26-2025 ambulatory Shiela Luís Facili ty:[facility] Start: 02-23-2025 ambulatory Shiela Luís Facili ty:[facility] Start: 02-19-2025 ambulatory Shiela Luís Facili ty:[facility] Start: 02-16-2025 End: 02-16-2025 ambulatory Karon Farmera SCARLET Facility:[facility] Start: 02-12-2025 Registered Referred [facility]aron [facility] [place] [employer] Start: 02-12-2025 End: 02-12-2025 ambulatory Shiela Luís Facility:[facility] Start: 02-09-2025 Registered Referred Carlos Reeder [facility] [place] [employer] Start: 02-09-2025 ambulatory Shiela Luís Facili ty:[facility] Start: 02-05-2025 Registered Referred Karon ReederMalin [employer] Start: 02-05-2025 End: 02-05-2025 ambulatory Shiela Luís Facility:[facility] Start: 02-02-2025 Registered Referred Karon ReederMalin [employer] Start: 02-02-2025 End: 02-02-2025 ambulatory Karon NOVAK Facility:[facility] Start: 01-29-2025 Registered Referred Karon ReederMalin [employer] Start: 01-29-2025 End: 01-29-2025 ambulatory Shiela Luís Facility:[facility] Start: 01-26-2025 Registered Referred Karon casillas MD -[facility] [place] [employer] Start: 01-26-2025 End: 01-26-2025 ambulatory Karon NOVAK Facility:[facility] Start: 01-22-2025 Registered Referred Karon ReederMalin [employer] Start: 01-22-2025 End: 01-22-2025 ambulatory Shiela Luís Facility:[facility] Start: 01-19-2025 Registered Referred Carlos Cavazos - [facility] [employer] Start: 01-19-2025 End: 01-19-2025 ambulatory Shiela Luís Facility:[facility] Start: 01-15-2025 Registered Referred Karon casillas MD -[facility] [employer] Start: 01-15-2025 End: 01-15-2025 ambulatory Shiela Luís Facility:[facility] Start: 01-12-2025 Registered Referred Karon casillas MD -[facility] [employer] Start: 01-12-2025 End: 01-12-2025 ambulatory Karon NOVAK Facility:[facility] Start: 01-08-2025 Registered Referred Karon casillas MD -[facility] [employer] Start: 01-08-2025 End: 01-08-2025 ambulatory Shiela Luís Facility:[facility] Start: 01-06-2025 Registered Referred Karon casillas MD -[facility] [employer] Start: 01-06-2025 End: 01-06-2025 ambulatory Shiela Luís Facility:[facility] Start: 01-01-2025 End: 01-01-[address] Monika Staley MD Work Phone: -[facility] [employer] Start: 01-01-2025 End: 01-01-2025 Departed Referred Karon Corrales MD -[facility] [employer] Start: 01-01-2025 Registered Referred Karon casillas MD -[facility] [place] [facility] [employer] Start: 01-01-2025 End: 01-01-2025 ambulatory Shiela Luís Facility:[facility] Start: 12-29-2024 Registered Referred Carlos Reeder [employer] [employer] Start: 12-29-2024 End: 12-29-2024 ambulatory Shiela Luís Facility:[facility] Start: 12-26-2024 End: 12-26-[address] Monika Staley MD Work Phone: -[facility] [place] [facility] [employer] Start: 12-26-2024 End: 12-26-2024 Departed Referred Karon Corrales MD -[facility] Start: 12-26-2024 Registered Referred Karon casillas MD -[facility] [employer] Start: 12-26-2024 End: 12-26-2024 ambulatory Shiela Luís Facility:[facility] Start: 12-25-2024 Registered Referred Karon casillas MD -[facility] [employer] Start: 12-24-2024 End: 12-25-2024 ambulatory Shiela Luís Facility:[facility] Start: 12-24-2024 Registered Referred Carlos Cavazos - [facility] [employer] Start: 12-22-2024 [facility] Start: 12-22-2024 Registered Referred Karon casillas MD -[facility] Start: 12-18-2024 Registered Referred Karon casillas MD -[facility] [employer] Start: 12-18-2024 End: 12-18-2024 ambulatory Shiela Luís Facility:[facility] Start: 12-15-2024 [facility] Start: 12-15-2024 Registered Referred Karon casillas MD -[facility] Start: 12-11-2024 Registered Referred Carlos Cavazos - [facility] [employer] Start: 12-11-2024 End: 12-11-2024 [facility] Start: 12-08-2024 Registered Referred Karon casillas MD -[facility] Start: 12-08-2024 End: 12-08-2024 ambulatory [facility] Luís Facility:[facility] Start: 12-04-2024 Registered Referred Karon casillas MD -[facility] [employer] Start: 12-04-2024 End: 12-04-2024 ambulatory Shiela Luís Facility:[facility] Start: 12-02-2024 ambulatory Mahaveer Mukka flash OLS Facility:[facility] Start: 12-02-2024 Registered Referred [facility]aron [facility] [employer] Start: 12-01-2024 ambulatory Shiela Luís Facili ty:[facility] Start: 12-01-2024 Registered Referred Carlos Cavazos - [facility] [employer] Start: 11-28-2024 Registered Referred Carlos Cavazos - [facility] [employer] Start: 11-28-2024 End: 11-28-2024 ambulatory Shiela Luís Facility:[facility] Start: 11-27-2024 Registered Referred Karon ReederMalin [facility] [employer] Start: 11-27-2024 End: 11-27-2024 ambulatory Shiela Luís Facility:[facility] Start: 11-24-2024 ambulatory Shiela Luís Facili ty:[facility] Start: 11-24-2024 Registered Referred [facility] [employer] Start: 11-20-2024 Registered Referred Karon casillas MD -[facility] [place] [employer] Start: 11-20-2024 End: 11-20-2024 ambulatory Shiela Luís Facility:[facility] Start: 11-17-2024 ambulatory Shiela Luís Facili ty:[facility] Start: 11-17-2024 Registered Referred [facility]aron [facility] [employer] Start: 11-13-2024 ambulatory Shiela Luís Facili ty:[facility] Start: 11-13-2024 Registered Referred Karon [facility] [employer] Start: 11-10-2024 ambulatory Karon Knowles flash [facility] Facility:[facility] Start: 11-10-2024 Registered Referred Karon [facility]ederMalin [facility] [employer] Start: 11-06-2024 Registered Referred Karon casillas MD -[facility] [employer] Start: 11-06-2024 End: 11-06-2024 ambulatory Karon NOVAK Facility:[facility] Start: 11-03-2024 End: 11-03-[address] Monika Staley MD Work Phone: -[facility] [employer] Start: 11-03-2024 End: 11-03-2024 Departed Referred Carlos Maribelsaviri -[facility] [employer] Start: 11-03-2024 Registered Referred Carlos Maribelkameron - [facility] Start: 11-03-2024 End: 11-03-2024 ambulatory Monika Horner Luís Facility:[facility] Start: 10-30-2024 End: 10-30-[address] Monika Staley MD Work Phone: -[facility] [employer] Start: 10-30-2024 End: 10-30-2024 Departed Referred Karon Corrales MD -[facility] [employer] Start: 10-30-2024 Registered Referred Karon casillas MD -[facility] [employer] Start: 10-30-2024 End: 10-30-2024 ambulatory Monika Staley Facility:[facility] Start: 10-27-2024 Registered Referred Karon casillas MD -[facility] [employer] Start: 10-27-2024 End: 10-27-2024 ambulatory Karon NOVAK Facility:[facility] Start: 10-23-2024 Registered Referred Karon casillas MD -[facility] [employer] Start: 10-23-2024 End: 10-23-2024 ambulatory Shiela Luís Facility:[facility] Start: 10-20-2024 End: 10-20-[address] Monika Staley MD Work Phone: -[facility] Start: 10-20-2024 End: 10-20-2024 Departed Referred Karon [facility] [employer] Start: 10-20-2024 Registered Referred K[facility] [employer] Start: 10-20-2024 End: 10-20-2024 ambulatory Karon NOVAK Facility:[facility] Start: 10-16-2024 ambulatory Shiela Luís Facili ty:[facility] Start: 10-16-2024 Registered Referred Karon Pradoctuary [facility] [employer] Start: 10-13-2024 ambulatory Shiela Luís Facili ty:[facility] Start: 10-13-2024 Registered Referred Carlos [facility] [employer] Start: 10-09-2024 ambulatory Shiela Luís Facili ty:[facility] Start: 10-09-2024 Registered Referred Karon Morenouary [facility] [employer] Start: 10-06-2024 ambulatory Shiela Luís Facili ty:[facility] Start: 10-06-2024 Registered Referred Carlos Waldronctuary [facility] Start: 10-02-2024 ambulatory Shiela Luís Facili ty:[facility] Start: 10-02-2024 Registered Referred Karon Morenouary [facility] [employer] Start: 09-30-2024 End: 09-30-[address] Monika Staley MD Work Phone: [facility] Work Phone: Start: 09-30-2024 End: 09-30-2024 Departed Referred Karon ReederMalin [facility] [employer] Start: 09-30-2024 Registered Referred Karon Mcclain [facility] [employer] Start: 09-30-2024 End: 09-30-2024 ambulatory Karon NOVAK Facility:[facility] Start: 09-25-2024 ambulatory Shiela Luís Facili ty:[facility] Start: 09-25-2024 Registered Referred Karon Mcclain [facility] [employer] Start: 09-22-2024 End: 09-22-[address] Monika Staley MD Work Phone: -[facility] [employer] Start: 09-22-2024 End: 09-22-2024 Departed Referred Karon Corrales MD -[facility] Start: 09-22-2024 Registered Referred Karon casillas MD -[facility] [place] [employer] Start: 09-22-2024 End: 09-22-2024 ambulatory oMnika Staley Facility:[facility] Start: 09-18-2024 End: 09-18-[address] Monika Staley MD Work Phone: -[facility] [employer] Start: 09-18-2024 End: 09-18-2024 Departed Referred Karon Corrales MD -[facility] [employer] Start: 09-18-2024 Registered Referred Karon casillas MD -[facility] [place] [employer] Start: 09-18-2024 End: 09-18-2024 ambulatory Monika Staley Facility:[facility] Start: 09-15-2024 End: 09-15-[address] Monika Staley MD Work Phone: [facility] Work Phone: Start: 09-15-2024 End: 09-15-2024 Departed Referred Carlos Cavazos -[facility] [employer] Start: 09-15-2024 Registered Referred Carlos Cavazos - [facility] Start: 09-15-2024 End: 09-15-2024 ambulatory Monika Staley Facility:[facility] Start: 09-11-2024 ambulatory Monika Staley Facili ty:[facility] Start: 09-11-2024 Registered Referred Karon csaillas MD -[facility] [employer] Start: 09-08-2024 End: 09-08-[address] Monika Staley MD Work Phone: [facility] Work Phone: Start: 09-08-2024 End: 09-08-2024 Departed Referred Karon Corrales MD -[facility] [employer] Start: 09-08-2024 Registered Referred Karon casillas MD -[facility] [employer] Start: 09-08-2024 End: 09-08-2024 ambulatory Karon NOVAK Facility:[facility] Start: 09-04-2024 End: 09-04-2024 Departed Referred Carlos Cavazos -[facility] Start: 09-04-2024 Registered Referred Carlos Cavazos - [facility] Start: 09-04-2024 End: 09-04-2024 ambulatory Shiela Luís Facility:[facility] Start: 09-01-2024 End: 09-01-[address] Monika Staley MD Work Phone: [facility] Work Phone: Start: 09-01-2024 End: 09-01-2024 Departed Referred Carlos Cavazos -[facility] Start: 09-01-2024 Registered Referred Carlos Quickros - [facility] Start: 09-01-2024 End: 09-01-2024 ambulatory Monika Horner Luís Facility:[facility] Start: 08-28-2024 End: 08-28-[address] Monika Staley MD Work Phone: [facility] Work Phone: Start: 08-28-2024 End: 08-28-2024 Departed Referred Carlos Cavazos -[facility] [employer] Start: 08-28-2024 Registered Referred Carlos Cavazos - [facility] [employer] Start: 08-28-2024 End: 08-28-2024 ambulatory Monika Staley Facility:[facility] Start: 08-25-2024 End: 08-25-[address] Monika Staley MD Work Phone: [facility] Work Phone: Start: 08-25-2024 End: 08-25-2024 Departed Referred Karon Corrales MD -[facility] [employer] Start: 08-25-2024 Registered Referred Karon casillas MD -[facility] [employer] Start: 08-25-2024 End: 08-25-2024 ambulatory Karon ONVAK Facility:[facility] Start: 08-21-2024 End: 08-21-[address] Monika Staley MD Work Phone: [facility] Work Phone: Start: 08-21-2024 End: 08-21-2024 Departed Referred Karon Corrales MD -[facility] [employer] Start: 08-21-2024 Registered Referred Karon casillas MD -[facility] [employer] Start: 08-21-2024 End: 08-21-2024 [facility] Start: 08-18-2024 End: 08-18-[address] Monika Staley MD Work Phone: [facility] Work Phone: Start: 08-18-2024 End: 08-18-2024 Departed Referred Karon Corrales MD -[facility] [employer] Start: 08-18-2024 Registered Referred Karon casillas MD -[facility] [employer] Start: 08-18-2024 End: 08-18-2024 ambulatory Shiela Luís Facility:[facility] Start: 08-14-2024 End: 08-14-[address] Monika Staley MD Work Phone: [facility] Work Phone: Start: 08-14-2024 End: 08-14-2024 Departed Referred [facility] Start: 08-14-2024 Registered Referred Karon casillas MD -[facility] [employer] Start: 08-14-2024 End: 08-14-2024 ambulatory Shiela Luís Facility:[facility] Start: 08-11-2024 End: 08-11-2024 Departed Referred Karon Corrales MD -[facility] Start: 08-11-2024 Registered Referred Karon casillas MD -[facility] [employer] Start: 08-11-2024 End: 08-11-2024 ambulatory Shiela Luís Facility:[facility] Start: 08-07-2024 End: 08-07-2024 Departed Referred Carlos Cavazos -[facility] [employer] Start: 08-07-2024 Registered Referred Carlos Cavazos - [facility] [employer] Start: 08-07-2024 End: 08-07-2024 ambulatory Shiela Luís Facility:[facility] Start: 08-04-2024 End: 08-04-[address] Monika Staley MD Work Phone: [facility] Work Phone: Start: 08-04-2024 End: 08-04-2024 Departed Referred Carlos Cavazos -[facility] Start: 08-04-2024 Registered Referred Carlos Cavazos - [facility] Start: 08-04-2024 End: 08-04-2024 ambulatory Shiela Luís Facility:[facility] Start: 07-31-2024 End: 07-31-[address] Monika Staley MD Work Phone: [facility] Work Phone: Start: 07-31-2024 End: 07-31-2024 Departed Referred Karon Corrales MD -[facility] Start: 07-31-2024 Registered Referred Karon casillas MD -[facility] [employer] Start: 07-31-2024 End: 07-31-2024 ambulatory Karon NOVAK Facility:[facility] Start: 07-28-2024 End: 07-28-[address] Monika Staley MD Work Phone: [facility] Work Phone: Start: 07-28-2024 End: 07-28-2024 Departed Referred Karon Corrales MD -[facility] [employer] Start: 07-28-2024 Registered Referred Karon casillas MD -[facility] Start: 07-28-2024 End: 07-28-2024 ambulatory Monika Staley Facility:[facility] Start: 07-25-2024 End: 07-25-[address] Monika Staley MD Work Phone: [facility] Work Phone: Start: 07-25-2024 End: 07-25-2024 Departed Referred Carlos Cavazos -[facility] Start: 07-25-2024 Registered Referred Carlos Cavazos - [facility] Start: 07-24-2024 End: 07-25-[address] Monika Staley MD Work Phone: [facility] Work Phone: Start: 07-24-2024 End: 07-24-2024 Departed Referred Karon Corrales MD -[facility] [employer] Start: 07-24-2024 Registered Referred Karon casillas MD -[facility] [employer] Start: 07-24-2024 End: 07-24-2024 ambulatory Karon NOVAK Facility:[facility] Start: 07-21-2024 End: 07-21-[address] Monika Staley MD Work Phone: [facility] Work Phone: Start: 07-21-2024 End: 07-21-2024 Departed Referred Karon Corrales MD -[facility] [place] [employer] Start: 07-21-2024 Registered Referred Karon casillas MD -[facility] [employer] [facility] Start: 07-21-2024 End: 07-21-2024 ambulatory [facility] Facility:[facility] Start: 07-17-2024 End: 07-17-[address] Monika Staley MD Work Phone: [facility] Work Phone: Start: 07-17-2024 End: 07-17-2024 Departed Referred Karon Corrales MD -[facility] [employer] Start: 07-17-2024 Registered Referred Karon casillas MD -[facility] Start: 07-17-2024 End: 07-17-2024 ambulatory Karon NOVAK Facility:[facility] Start: 07-14-2024 End: 07-14-[address] Monika Staley MD Work Phone: [facility] Work Phone: Start: 07-14-2024 End: 07-14-2024 Departed Referred Carlos Cavazos -[facility] [employer] [facility] Start: 07-14-2024 Registered Referred Carlos Caavzos - [facility] Start: 07-14-2024 End: 07-14-2024 ambulatory Shiela Luís Facility:[facility] Start: 07-11-2024 End: 07-11-[address] Monika Staley MD Work Phone: [facility] Work Phone: Start: 07-11-2024 End: 07-11-2024 Departed Referred Carlos [facility] [employer] Start: 07-11-2024 Registered Referred Carlos [facility] Start: 07-11-2024 End: 07-11-2024 ambulatory Monika Horner Luís Facility:[facility] Start: 07-07-2024 End: 07-07-[address] Monika Staley MD Work Phone: [facility] Work Phone: Start: 07-07-2024 End: 07-07-2024 Departed Referred Karon Corrales MD -[facility] [employer] Start: 07-07-2024 Registered Referred [facility] -[facility] [place] [employer] Start: 07-07-2024 End: 07-07-2024 ambulatory Karon NOVAK Facility:[facility] Start: 07-03-2024 End: 07-03-[address] Monika Staley MD Work Phone: [facility] Work Phone: Start: 07-03-2024 End: 07-03-2024 Departed Referred Kvng Crisostomo MD -[facility] [employer] Start: 07-03-2024 Registered Referred Kvng Crisostomo MD -[facility] [employer] Start: 07-03-2024 End: 07-03-2024 ambulatory Monika Staley Facility:[facility] Start: 06-30-2024 End: 06-30-[address] Monika Staley MD Work Phone: [facility] Work Phone: Start: 06-30-2024 End: 06-30-2024 Departed Referred Kvng Crisostomo MD -[facility] [employer] Start: 06-30-2024 Registered Referred Kvng Crisostomo MD -[facility] [employer] Start: 06-30-2024 End: 06-30-2024 ambulatory Monika Staley Facility:[facility] Start: 06-26-2024 ambulatory [facility]ika Staley [facility] Start: 06-26-2024 Registered Referred Kvng Crisostomo MD -[facility] [employer] Start: 06-23-2024 End: 06-23-[address] Monika Staley MD Work Phone: [facility] Work Phone: Start: 06-23-2024 End: 06-23-2024 Departed Referred Carlos Cavazos -[facility] [employer] [facility] Start: 06-23-2024 Registered Referred Carlos Cavazos - [facility] [employer] Start: 06-23-2024 End: 06-23-2024 ambulatory [facility] Facility:[facility] Start: 06-19-2024 End: 06-19-[address] Monika Staley MD Work Phone: [facility] Work Phone: Start: 06-19-2024 End: 06-19-2024 Departed Referred Kvng Crisostomo MD -[facility] [employer] [employer] Start: 06-19-2024 Registered Referred Kvng Crisostomo MD -[facility] [place] [employer] Start: 06-19-2024 End: 06-19-2024 ambulatory [facility] Facility:[facility] Start: 06-16-2024 End: 06-16-[address] Monika Staley MD Work Phone: [facility] Work Phone: Start: 06-16-2024 End: 06-16-2024 Departed Referred Kvng Crisostomo MD -[facility] [employer] Start: 06-16-2024 Registered Referred Kvng Crisostomo MD -[facility] [employer] Start: 06-16-2024 End: 06-16-2024 ambulatory [facility] Facility:[facility] Start: 06-12-2024 End: 06-12-[address] Monika Staley MD Work Phone: [facility] Work Phone: Start: 06-12-2024 End: 06-12-2024 Departed Referred Kvng Crisostomo MD -[facility] [employer] Start: 06-12-2024 Registered Referred Kvng Crisostomo MD -[facility] [employer] Start: 06-12-2024 End: 06-12-2024 ambulatory [facility] Facility:[facility] Start: 06-09-2024 End: 06-09-[address] Monika Staley MD Work Phone: [facility] Work Phone: Start: 06-09-2024 End: 06-09-2024 Departed Referred Carlos Cavazos -[facility] [employer] Start: 06-09-2024 Registered Referred Carlos Cavazos - [facility] [employer] Start: 06-09-2024 End: 06-09-2024 ambulatory Shiela Luís Facility:[facility] Start: 06-05-2024 End: 06-05-[address] Monika Staley MD Work Phone: [facility] Work Phone: Start: 06-05-2024 End: 06-05-2024 Departed Referred Kvng Crisostomo MD -[facility] [employer] Start: 06-05-2024 End: 06-05-2024 ambulatory Monika Staley Facility:[facility] Start: 06-02-2024 End: 06-02-[address] Monika Staley MD Work Phone: [facility] Work Phone: Start: 06-02-2024 End: 06-02-2024 Departed Referred Kvng Crisostomo MD -[facility] [employer] Start: 06-02-2024 Registered Referred Kvng Crisostomo MD -[facility] [employer] Start: 06-02-2024 End: 06-02-2024 ambulatory Kvng NOVAK Facility:[facility] Start: 05-29-2024 End: 05-29-[address] Monika Staley MD Work Phone: [facility] Work Phone: Start: 05-29-2024 End: 05-29-2024 Departed Referred Kvng Crisostomo MD -[facility] [employer] Start: 05-29-2024 Registered Referred Babbaljeet Crisostomo MD -[facility] [employer] [facility] Start: 05-29-2024 End: 05-29-2024 ambulatory Shiela Luís Facility:[facility] Start: 05-26-2024 End: 05-26-[address] Monika Staley MD Work Phone: [facility] Work Phone: Start: 05-26-2024 End: 05-26-2024 Departed Referred Carlos Cavazos -[facility] [employer] [facility] Start: 05-26-2024 Registered Referred Carlos Cavazos - [facility] [employer] [facility] Start: 05-26-2024 End: 05-26-[facility] Start: 05-22-2024 ambulatory [facility] Facili ty:[facility] Start: 05-22-2024 Registered Referred Kvng Crisostomo MD -[facility] [employer] [facility] Start: 05-20-2024 End: 05-20-2024 Departed Referred Kvng Crisostomo MD -[facility] [employer] [facility] Start: 05-19-2024 End: 05-20-2024 ambulatory [facility] Luís Facility:[facility] Start: 05-19-2024 Registered Referred Kvng Crisostomo MD -[facility] [employer] [facility] Start: 05-15-2024 End: 05-15-2024 Departed Referred Kvng Crisostomo MD -[facility] Start: 05-15-2024 End: 05-15-2024 ambulatory [facility] Luís Facility:[facility] Start: 05-12-2024 End: 05-12-2024 Departed Referred [facility] Start: 05-12-2024 End: 05-12-2024 [facility] Start: 05-09-2024 End: 05-09-2024 Departed Referred [facility] Start: 05-09-2024 End: 05-09-2024 ambulatory Kvng NOVAK Facility:[facility] Start: 05-08-2024 End: 05-08-2024 Departed Referred [facility] Start: 05-08-2024 End: 05-08-2024 [facility] Start: 05-05-2024 End: 05-05-2024 Departed Referred Kvng Crisostomo MD -[facility] Start: 05-05-2024 End: 05-05-2024 [facility] Start: 05-01-2024 End: 05-01-2024 Departed Referred Kvng Crisostomo MD -[facility] Start: 05-01-2024 End: 05-01-2024 ambulatory Kvng NOVAK Facility:[facility] Start: 04-28-2024 End: 04-28-2024 Departed Referred Carlos Cavazos -[facility] [employer] [facility] Start: 04-28-2024 End: 04-28-2024 ambulatory [facility] Facility:[facility] Start: 04-24-2024 End: 04-24-2024 Departed Referred Kvng ReederMalin [employer] Start: 04-24-2024 End: 04-24-2024 ambulatory Kvng NOVAK Facility:[facility] Start: 04-21-2024 End: 04-21-2024 Departed Referred [facility] Start: 04-21-2024 End: 04-21-2024 ambulatory [facility] Facility:[facility] Start: 04-17-2024 ambulatory [facility] Facili ty:[facility] Start: 04-17-2024 Registered Referred [facility] Start: 04-14-2024 ambulatory [facility] Facili ty:[facility] Start: 04-14-2024 Registered Referred [facility] Start: 04-10-2024 End: 04-10-2024 Departed Referred [facility] Start: 04-10-2024 End: 04-10-2024 ambulatory Shiela Luís Facility:[facility] Start: 04-07-2024 End: 04-07-2024 Departed Referred Carlos Cavazos -[facility] Start: 04-07-2024 End: 04-07-2024 ambulatory Shiela Luís Facility:[facility] Start: 04-04-2024 ambulatory Shiela Luís Facili ty:[facility] Start: 04-04-2024 Registered Referred Kvng Crisostomo MD -[facility] Start: 03-31-2024 End: 03-31-2024 Departed Referred Carlos Cavazos -[facility] [employer] Start: 03-31-2024 End: 03-31-2024 ambulatory Shiela Luís Facility:[facility] Start: 03-27-2024 End: 03-27-2024 Departed Referred Mal[facility] [employer] Start: 03-27-2024 End: 03-27-2024 ambulatory Shiela Luís Facility:[facility] Start: 03-24-2024 End: 03-24-2024 Departed Referred Kvng Crisostomo MD -[facility] [employer] Start: 03-24-2024 End: 03-24-2024 ambulatory Shiela Luís Facility:[facility] Start: 03-20-2024 End: 03-20-2024 Departed Referred Malin [facility] Start: 03-20-2024 End: 03-20-2024 ambulatory Shiela Luís Facility:[facility] Start: 03-19-2024 End: 03-19-2024 Departed Referred Kvng Crisostomo MD -[facility] Start: 03-19-2024 End: 03-19-2024 ambulatory Kvng NOVAK Facility:[facility] Start: 03-18-2024 End: 03-18-2024 Departed Referred [facility] [employer] Start: 03-18-2024 End: 03-18-2024 ambulatory Shiela Luís Facility:[facility] Start: 03-17-2024 End: 03-17-2024 [facility] Start: 03-17-2024 End: 03-17-2024 [facility] Start: 03-14-2024 End: 03-14-2024 Departed Referred Carlos Quickviri [facility] Start: 03-14-2024 End: 03-14-2024 [facility] Start: 03-13-2024 End: 03-13-2024 Departed Referred [facility] Start: 03-13-2024 End: 03-13-2024 ambulatory [facility] Facility:[facility] Start: 03-10-2024 End: 03-10-2024 ambulatory [facility] Facility:[facility] Start: 09-13-2023 End: 09-13-2023 ambulatory REBECCA CIELO [facility] Start: 09-13-2023 End: 09-13-2023 Office outpatient visit 25 minutes Rebecca Buck MD Work Phone: [facility] Comment on above: Left flank pain (Christina magui Dx); BPH with urinary obstruction; History of kidney stones Start: 09-06-2023 End: 09-07-2023 ambulatory [employer] CIELO [facility] Start: 09-06-2023 End: 09-06-2023 Subsequent hospital visit by physician Rebecca Buck MD Work Phone: [facility] Imaging Comment on above: Left flank pain; Calculus of ureter Start: 08-31-2023 ambulatory Eloise Stern RN [facility] Clinical Communication Start: 08-31-2023 Patient encounter procedure Eloise Stern RN [facility] Clinical Communication Start: 08-21-2023 Telephone encounter Rebecca Buck MD Work Phone: [facility] Clinical Communication Comment on above: CT appt Boaz advice Start: 08-21-2023 Registered Referred [facility] Start: 08-13-2023 End: 08-13-2023 ambulatory REBECCA BUCK [facility] Start: 08-13-2023 End: 08-13-2023 Office outpatient new 45 minutes Rebecca Buck MD Work Phone: [facility] Comment on above: Left flank pain (Christina magui Dx); Calculus of ureter; Disease of prostate; BPH with urinary obstruction Start: 08-03-2023 End: 08-03-2023 ambulatory [facility] Work Phone: Start: 08-03-2023 End: 08-03-2023 [facility] Start: 07-20-2023 End: 07-20-2023 ambulatory [facility] Work Phone: Start: 07-20-2023 End: 07-20-2023 [facility] Start: 07-20-2023 [facility] Start: 07-18-2023 End: 07-18-2023 ambulatory [facility] Work Phone: Start: 07-18-2023 End: 07-18-2023 [facility] Start: 07-18-2023 [facility] Start: 07-16-2023 End: 07-16-2023 ambulatory [facility] Work Phone: Start: 07-16-2023 End: 07-16-2023 [facility] Start: 07-16-2023 [facility] Start: 07-13-2023 End: 07-13-2023 ambulatory [facility] Work Phone: Start: 07-13-2023 End: 07-13-2023 [facility] Start: 07-13-2023 [facility] Start: 07-12-2023 End: 07-12-2023 ambulatory [facility] Work Phone: Start: 07-12-2023 End: 07-12-2023 [facility]ed [facility] Start: 07-12-2023 [facility] Start: 07-05-2023 End: 07-05-2023 ambulatory [facility] Work Phone: Start: 07-05-2023 End: 07-05-2023 [facility]ed [facility] Start: 07-05-2023 [facility] Start: 07-02-2023 [facility] Start: 06-28-2023 End: 06-28-2023 ambulatory [facility] Work Phone: Start: 06-28-2023 End: 06-28-2023 [facility]ed [facility] Start: 06-28-2023 [facility] Start: 06-25-2023 Telephone encounter Rebecca Buck MD Work Phone: [facility] Start: 06-25-2023 End: 06-25-2023 ambulatory [facility] Work Phone: Start: 06-25-2023 End: 06-25-2023 [facility]ed [facility] Start: 06-25-2023 [facility] Start: 06-21-2023 End: 06-21-2023 ambulatory [facility] Work Phone: Start: 06-21-2023 End: 06-21-2023 [facility]ed [facility] Start: 06-21-2023 [facility] Start: 06-13-2023 End: 06-13-2023 ambulatory [facility] Work Phone: Start: 06-13-2023 End: 06-13-2023 [facility]ed [facility] Start: 06-06-2023 End: 06-06-2023 ambulatory [facility] Work Phone: Start: 06-06-2023 End: 06-06-2023 [facility]ed [facility] Start: 06-06-2023 [facility] Start: 05-23-2023 End: 05-23-2023 ambulatory [facility] Work Phone: Start: 05-23-2023 End: 05-23-2023 [facility]ed [facility] Start: 05-09-2023 End: 05-09-2023 [facility]ed [facility] Start: 05-09-2023 [facility] Start: 04-23-2023 End: 04-23-2023 [facility]ed [facility] Start: 04-09-2023 End: 04-09-2023 ambulatory [facility] Work Phone: Start: 04-09-2023 End: 04-09-2023 [facility] Start: 04-09-2023 [facility] Start: 04-02-2023 End: 04-02-2023 ambulatory [facility] Work Phone: Start: 04-02-2023 End: 04-02-2023 [facility]ed [facility] Start: 04-02-2023 [facility] Start: 03-26-2023 End: 03-26-2023 ambulatory [facility] Work Phone: Start: 03-26-2023 End: 03-26-2023 Departed Referred [facility] [employer] Start: 03-26-2023 Registered Referred [facility] [employer] Start: 03-22-2023 End: 03-22-2023 ambulatory [facility] Work Phone: Start: 03-22-2023 End: 03-22-2023 [facility]arted [facility] Start: 03-22-2023 [facility] Start: 03-08-2023 End: 03-08-2023 ambulatory [facility] Work Phone: Start: 03-08-2023 End: 03-08-2023 [facility]ed [facility] Start: 02-22-2023 End: 02-22-2023 ambulatory [facility] Work Phone: Start: 02-22-2023 End: 02-22-2023 Departed [facility] Start: 02-22-2023 [facility] Start: 02-15-2023 End: 02-15-2023 ambulatory [facility] Work Phone: Start: 02-15-2023 End: 02-15-2023 Departed [facility] Start: 02-15-2023 [facility] Start: 02-08-2023 End: 02-08-2023 ambulatory [facility] Work Phone: Start: 02-08-2023 End: 02-08-2023 Departed Referred [facility] Start: 01-31-2023 End: 01-31-2023 ambulatory [facility] Work Phone: Start: 01-31-2023 End: 01-31-2023 Departed [facility] Start: 01-31-2023 Registered [facility] Start: 01-29-2023 End: 01-29-2023 Departed Referred [facility] [employer] Start: 01-29-2023 Registered Ref[facility] [employer] [facility] Start: 01-26-2023 End: 01-26-2023 Departed [facility] Start: 01-26-2023 [facility] Start: 01-24-2023 End: 01-24-2023 Departed [facility] Start: 01-24-2023 [facility] Start: 01-22-2023 End: 01-22-2023 ambulatory [facility] Work Phone: Start: 01-22-2023 End: 01-22-2023 Departed [facility] Start: 01-22-2023 Registered [facility] Start: 01-10-2023 End: 01-10-2023 ambulatory [facility] Work Phone: Start: 01-10-2023 End: 01-10-2023 Departed [facility] Start: 01-10-2023 Registered Referred [facility] Start: 12-27-2022 End: 12-27-2022 ambulatory [facility] Work Phone: Start: 12-27-2022 End: 12-27-2022 Departed [facility] Start: 12-27-2022 Registered Ref[facility] [employer] [facility] Start: 12-21-2022 End: 12-21-2022 ambulatory [facility] Work Phone: Start: 12-21-2022 End: 12-21-2022 Departed [facility] Start: 12-21-2022 Registered [facility] Start: 12-14-2022 End: 12-14-2022 ambulatory [facility] Work Phone: Start: 12-14-2022 End: 12-14-2022 Departed Referred [facility] Start: 12-14-2022 [facility] Start: 12-07-2022 End: 12-07-2022 ambulatory [facility] Work Phone: Start: 12-07-2022 End: 12-07-2022 Departed [facility] Start: 12-07-2022 Registered [facility] Start: 11-24-2022 End: 11-24-2022 ambulatory [facility] Work Phone: Start: 11-24-2022 End: 11-24-2022 Departed [facility] Start: 11-24-2022 [facility] Start: 11-23-2022 End: 11-23-2022 ambulatory [facility] Work Phone: Start: 11-23-2022 End: 11-23-2022 Departed [facility] Start: 11-23-2022 [facility] Start: 11-22-2022 End: 11-22-2022 ambulatory [facility] Work Phone: Start: 11-22-2022 End: 11-22-2022 Departed Referred [facility] Start: 11-22-2022 Registered [facility] [employer] [facility] Start: 11-09-2022 End: 11-09-2022 ambulatory [facility] Work Phone: Start: 11-09-2022 End: 11-09-2022 Departed Referred [facility] Start: 11-09-2022 Registered Referred [facility] [employer] [facility] Start: 10-26-2022 End: 10-26-2022 Departed Referred [facility] [employer] [facility] Start: 10-26-2022 Registered Referred [facility] [employer] Start: 10-12-2022 End: 10-12-2022 ambulatory [facility] Work Phone: Start: 10-12-2022 End: 10-12-2022 Departed Referred [facility] [employer] [facility] Start: 10-12-2022 Registered Referred [facility] [employer] [facility] Start: 10-05-2022 End: 10-05-2022 Departed [facility] Start: 10-05-2022 [facility] Start: 09-28-2022 End: 09-28-2022 ambulatory [facility] Work Phone: Start: 09-28-2022 End: 09-28-2022 Departed [facility] Start: 09-14-2022 End: 09-14-2022 Departed [facility] Start: 08-31-2022 End: 08-31-2022 Departed [facility] Start: 08-31-2022 Registered Referred [facility] [employer] [facility] Start: 08-23-2022 End: 08-23-2022 ambulatory [facility] Work Phone: Start: 08-23-2022 End: 08-23-2022 Departed [facility] Start: 08-23-2022 [facility] Start: 08-17-2022 End: 08-17-2022 ambulatory [facility] Work Phone: Start: 08-17-2022 End: 08-17-2022 Departed Referred [facility] [employer] [facility] Start: 08-17-2022 Registered Ref[facility] Start: 08-14-2022 End: 08-14-2022 ambulatory [facility] Work Phone: Start: 08-14-2022 End: 08-14-2022 Departed Referred [facility] [employer] [facility] Start: 08-14-2022 Registered [facility] Start: 07-31-2022 End: 07-31-2022 ambulatory [facility] Work Phone: Start: 07-31-2022 End: 07-31-2022 Departed [facility] Start: 07-31-2022 Registered Referred [facility] [employer] Start: 07-24-2022 End: 07-24-2022 ambulatory [facility] Work Phone: Start: 07-24-2022 End: 07-24-2022 Departed Referred [facility] [employer] Start: 07-24-2022 Registered Ref[facility] [facility] Start: 07-20-2022 End: 07-20-2022 Departed Referred [facility] [employer] Start: 07-20-2022 Registered Ref[facility] [employer] [facility] Start: 07-17-2022 End: 07-17-2022 Departed Referred [facility] [employer] [facility] Start: 07-17-2022 Registered Referred [facility] [employer] Start: 07-11-2022 Registered Referred [facility] [employer] [facility] Start: 07-10-2022 End: 07-10-2022 ambulatory [facility] Work Phone: Start: 07-10-2022 End: 07-10-2022 Departed [facility] Start: 07-10-2022 [facility] Start: 07-03-2022 End: 07-03-2022 ambulatory [facility] Work Phone: Start: 07-03-2022 End: 07-03-2022 [facility]arted [facility] Start: 07-03-2022 [facility] Start: 06-27-2022 End: 06-27-2022 ambulatory [facility] Work Phone: Start: 06-27-2022 End: 06-27-2022 Departed [facility] Start: 06-27-2022 [facility] Start: 06-13-2022 End: 06-13-2022 ambulatory [facility] Work Phone: Start: 06-13-2022 End: 06-13-2022 Departed [facility] [facility] Start: 06-13-2022 [facility] Start: 06-06-2022 End: 06-06-2022 ambulatory [facility] Work Phone: Start: 06-06-2022 End: 06-06-2022 Departed [facility] [employer] [facility] Start: 06-06-2022 [facility] Start: 05-30-2022 End: 05-30-2022 ambulatory [facility] Work Phone: Start: 05-30-2022 End: 05-30-2022 Departed [facility] [employer] [facility] Start: 05-30-2022 [facility] [facility] Start: 05-16-2022 End: 05-16-2022 ambulatory [facility] Work Phone: Start: 05-16-2022 End: 05-16-2022 Departed Referred [facility] Start: 05-16-2022 [facility] Start: 05-02-2022 End: 05-02-2022 ambulatory [facility] Work Phone: Start: 05-02-2022 End: 05-02-2022 Departed [facility] Start: 05-02-2022 [facility]istered [facility] Start: 04-27-2022 End: 04-27-2022 ambulatory [facility] Work Phone: Start: 04-27-2022 End: 04-27-2022 [facility]arted [facility] Start: 04-27-2022 [facility] Start: 04-26-2022 End: 04-26-2022 ambulatory [facility] Work Phone: Start: 04-26-2022 End: 04-26-2022 Departed [facility] Start: 04-11-2022 End: 04-11-2022 ambulatory [facility] Work Phone: Start: 04-11-2022 End: 04-11-2022 Departed [facility] [facility] Start: 03-28-2022 End: 03-28-2022 Departed [facility] [employer] [facility] Start: 03-28-2022 [facility] Start: 03-23-2022 End: 03-23-2022 Departed [facility] [facility] Start: 03-23-2022 [facility] Start: 03-16-2022 End: 03-16-2022 ambulatory [facility] Work Phone: Start: 03-16-2022 End: 03-16-2022 [facility]arted [facility] Start: 03-16-2022 [facility] Start: 03-09-2022 End: 03-09-2022 ambulatory [facility] Work Phone: Start: 03-09-2022 End: 03-09-2022 [facility] Start: 03-09-2022 [facility] Start: 03-06-2022 End: 03-06-2022 ambulatory [facility] Work Phone: Start: 03-06-2022 End: 03-06-2022 Departed Referred [facility] Start: 03-06-2022 [facility] Start: 03-02-2022 End: 03-03-2022 Emergency department patient visit UNKNOWN PROVIDER [facility] Start: 03-02-2022 End: 03-02-2022 Emergency department patient visit Lanette Munguia DO Work Phone: [facility] Emergency Dept Comment on above: Fall, initial encoun ter (Primary Dx); Anticoagulated Start: 02-20-2022 End: 02-20-2022 Departed Referred [facility] Start: 02-20-2022 [facility] Start: 02-13-2022 End: 02-13-2022 ambulatory [facility] Work Phone: Start: 02-13-2022 End: 02-13-2022 [facility] Start: 02-13-2022 [facility] Start: 02-06-2022 End: 02-06-2022 ambulatory [facility] Work Phone: Start: 02-06-2022 End: 02-06-2022 Departed Referred [facility] Start: 02-06-2022 [facility] LLC Start: 01-30-2022 End: 01-30-2022 [facility] Start: 01-30-2022 [facility] Start: 01-26-2022 End: 01-26-2022 ambulatory [facility] Work Phone: Start: 01-26-2022 End: 01-26-2022 [facility]ed [facility] Start: 01-26-2022 [facility] Start: 01-19-2022 End: 01-19-2022 ambulatory [facility] Work Phone: Start: 01-19-2022 End: 01-19-2022 [facility]ed [facility] Start: 01-19-2022 [facility] [place] [facility] Start: 01-17-2022 ambulatory [facility] Start: 01-10-2022 [facility] Start: 01-10-2022 End: 01-10-2022 ambulatory [facility] Work Phone: Start: 01-10-2022 End: 01-10-2022 [facility]ed [facility] Start: 01-10-2022 [facility] [place] [facility] Start: 01-06-2022 AUDIT Monika Elias rt Work Phone: [facility] Work Phone: Start: 01-05-2022 End: 01-05-2022 [facility]ed [facility] Start: 01-05-2022 [facility] Start: 12-30-2021 End: 12-30-2021 [facility]ed [facility] [place] [facility] Start: 12-30-2021 [facility] Start: 12-28-2021 End: 12-28-2021 ambulatory [facility] Work Phone: Start: 12-28-2021 End: 12-28-2021 Departed [facility] [place] [facility] Start: 12-28-2021 Registered Referred [facility] Kathy [facility] Start: 12-26-2021 End: 12-26-2021 ambulatory [facility] Work Phone: Start: 12-26-2021 End: 12-26-2021 Departed [facility]erred [facility] [place] [facility] Start: 12-26-2021 Registered Referred [facility] Kathy [facility] Start: 12-22-2021 End: 12-22-2021 ambulatory [facility] Work Phone: Start: 12-22-2021 End: 12-22-2021 Departed [facility]erred [facility] [place] [facility] Start: 12-22-2021 Registered [facility] [place] [facility] Start: 12-22-2021 End: 12-22-2021 [facility] Start: 12-21-2021 End: 12-22-2021 Emergency department patient visit Sharon Olivia MD Work Phone: [facility] Emergency Dept Comment on above: Heel ulceration, lef t, with unspecified severity (HCC) (Primary Dx) Start: 12-19-2021 End: 12-19-2021 ambulatory [facility] Work Phone: Start: 12-19-2021 End: 12-19-2021 Departed [facility]erred [facility] Start: 12-19-2021 Registered Referred [facility] Kathy [facility] Start: 12-12-2021 End: 12-12-2021 ambulatory [facility] Work Phone: Start: 12-12-2021 End: 12-12-2021 Departed Referred [facility] [employer] Start: 12-12-2021 [facility] Start: 12-08-2021 End: 12-08-2021 ambulatory [facility] Work Phone: Start: 12-08-2021 End: 12-08-2021 [facility]ed [facility] Start: 12-08-2021 [facility] Start: 12-05-2021 End: 12-05-2021 ambulatory [facility] Work Phone: Start: 12-05-2021 End: 12-05-2021 [facility]ed [facility] Start: 12-05-2021 [facility] Start: 12-01-2021 End: 12-01-2021 [facility]ed [facility] [place] [facility] Start: 12-01-2021 [facility] [place] [facility] Start: 11-28-2021 End: 11-28-2021 [facility]ed [facility] [place] [facility] Start: 11-28-2021 [facility] Start: 11-25-2021 Rx Renewal Monika Elias rt Work Phone: [facility] Work Phone: Start: 11-23-2021 End: 11-23-2021 Departed [facility] [place] [facility] Start: 11-23-2021 Registered [facility] [place] [facility] Start: 11-22-2021 End: 11-22-2021 Departed [facility] Start: 11-22-2021 [facility] [place] [facility] Start: 11-21-2021 End: 11-21-2021 [facility]arted [facility] [place] [facility] Start: 11-15-2021 AUDIT Monika Elias rt Work Phone: [facility]dwtgt[facility] Work Phone: Start: 11-14-2021 End: 11-14-2021 Departed Referred [facility] Start: 11-14-2021 Registered Referred [facility] Start: 11-08-2021 End: 11-08-2021 Departed Referred [facility] Start: 11-08-2021 Registered Referred [facility] Start: 11-04-2021 End: 11-04-2021 Departed Referred [facility] Start: 11-04-2021 Registered Referred [facility] Start: 10-31-2021 End: 11-01-2021 Emergency department patient visit UNKNOWN PROVIDER [facility] Start: 10-31-2021 End: 11-01-2021 Emergency department patient visit Dante Kim MD Work Phone: [facility] Emergency Dept Comment on above: Other fatigue (Prima ry Dx) Start: 10-31-2021 End: 10-31-2021 Departed Referred [facility] Start: 10-21-2021 End: 10-29-2021 Evaluation and management of inpatient UNKNOWN PROVIDER [facility] Start: 10-21-2021 End: 10-29-2021 Evaluation and management of inpatient Lisa Miguel Angel JIMENEZ Work Phone: [phone] Comment on above: Leg swelling (Primar y Dx); Acute deep vein thrombosis (DVT) of proximal vein of lower extremity, unspecified laterality (HCC) Start: 10-20-2021 End: 10-20-2021 Departed Referred [facility] Start: 10-17-2021 Telephone encounter Nicole davis MD Work Phone: [facility] Comment on above: Missed Appointment Start: 09-19-2021 End: 09-19-2021 Departed Referred [facility] Kathy RODRIGUEZ Start: 11-02-2020 AUDIT Monika Elias rt Work Phone: [facility] Work Phone: Start: 10-27-2020 AUDIT Monika Elias rt Work Phone: [facility] Work Phone: Start: 07-13-2020 Patient encounter procedure Monika Staley [facility] Physician [facility] Work Phone: Start: 04-13-2020 Patient encounter procedure Wing Ritter [facility] Physician [facility] Work Phone: Start: 04-07-2020 Patient encounter procedure Wing Ritter [facility] Physician [facility] Work Phone: Start: 03-18-2020 Patient encounter procedure Wing Ritter [facility] Physician [facility] Work Phone: Start: 01-20-2020 Patient encounter procedure Monika Staley MD JS-Eqqmuzfkie-Thven Work Phone: Start: 11-13-2019 End: 11-13-2019 Subsequent [...] PA Work Phone: Start: 12-22-2021 C-reactive protein Henry [...] Phone: Start: 10-26-2021 Electroencephalogram w/rec awake&asleep Sarina Yvette Pineda UNHAIRING INSPECTOR - DENTAL EQUIPMENT INSTALLER AND SERVICER Work Phone: Start: 10-26-2021 Ct head/brain w/o co ntrast material Sarina Yvette Pineda UNHAIRING INSPECTOR - DENTAL EQUIPMENT INSTALLER AND SERVICER Work Phone: Start: 10-26-2021 Prothrombin time Andres Sheridan MD Work Phone: Start: 10-25-2021 Speech and language therapy regime Sarina Yvette Edwin UNHAIRING INSPECTOR - DENTAL EQUIPMENT INSTALLER AND SERVICER Work Phone: Start: 10-25-2021 Prothrombin time Andres [...] count reticulo cyte automated Ellen B Niesha UNHAIRING INSPECTOR - DENTAL EQUIPMENT INSTALLER AND SERVICER Work Phone: Start: 10-21-2021 C-reactive protein Loua nn B Niesha UNHAIRING INSPECTOR - DENTAL EQUIPMENT INSTALLER AND SERVICER Work Phone: Start: 10-21-2021 Non-invas physiologi c std extremity art 2 level Shruthi Frenchacre UNHAIRING INSPECTOR - DENTAL EQUIPMENT INSTALLER AND SERVICER Work Phone: Start: 10-21-2021 Radex calcaneus mini mum 2 views Shruthi Frenchacre UNHAIRING INSPECTOR - DENTAL EQUIPMENT INSTALLER AND SERVICER Work Phone: Start: 10-21-2021 Dup-scan xtr veins c omplete bilateral study May Cash MD Start: 10-21-2021 Chest x-ray 1 view frontal Mya Cash MD Start: 10-21-2021 Pulmonary ventilatio n & perfusion imaging May Cash MD Start: 10-21-2021 Fibrin dgradj produc ts d-dimer quantitative May Cash MD Start: 10-21-2021 End: 10-21-2021 Basic metabolic panel calcium total Lisaitalia Michelle DO Work Phone: Start: 08-09-2021 Antibody screen Comment on above: Order Comment: Speci men Type: BLOOD SPECIMENOrdering Facility: [facility] Address: [address] [place] [phone] Performed By: #### T SCR ####[facility] BLOOD BANKCLIA [id number] [address] Start: 08-04-2021 Antibody screen Comment on above: Order Comment: Speci men Type: BLOOD SPECIMENOrdering Facility: [facility] Address: [address] [place] [address] Performed By: #### T SCR ####[facility] BLOOD BANKCLIA [id number] [address] Start: 08-01-2021 Antibody screen Comment on above: Order Comment: Speci men Type: BLOOD SPECIMENOrdering Facility: [facility] Address: [address] [place] [address] Performed By: #### T SCR ####[facility] BLOOD BANKCLIA [id number] [address] Start: 06-07-2021 Antibody screen Comment on above: Order Comment: Speci men Type: BLOOD SPECIMEN Performed By: #### T SCR ####[facility] BLOOD BANKCLIA [id number] [address] Start: 09-02-2020 Lipid 1996 panel - [...] - Td) DTaP/Tdap/Td vaccine (2 - Td) [facility] Work Phone: Start: 09-22-2026 DTaP/Tdap/Td Vaccine s (2 - Td or Tdap) DTaP/Tdap/Td Vaccines (2 - Td or Tdap) [facility] Start: 09-02-2025 Lipid panel Lipid Panel [facility] Start: 03-02-2025 Registered Referred Registered Refer red -Malin Yakimbi [facility] Start: 02-26-2025 Registered Referred Registered Refer red -Malin Kathy [facility] Start: 02-23-2025 Registered Referred Registered Refer red -Malin Kathy [facility] Start: 02-19-2025 Registered Referred Registered Refer red -Malin Yakimbi [facility] Start: 02-16-2025 Registered Referred Registered Refer red -Malin Yakimbi [facility] Start: 08-22-2024 DIABETES SCREEN DIABETES SCREEN [facility] Start: 12-04-2023 Lipid panel Lipids [facility] Start: 12-04-2023 Lipid screen Lipid screen [facility] Work Phone: Start: 09-13-2023 End: 09-13-2023 Patient encounter procedure 09/13/2023 11:30 AM EDT Office Visit [facility] [address] [phone] Rebecca Buck MD [address] [address] [facility] Start: 08-31-2023 End: 08-31-2023 Patient encounter procedure 08/31/2023 9:30 AM EDT Appointment [facility] [address] [place] [phone] Rebecca Buck MD [address] [address] [facility] [address] [facility] Start: 08-13-2023 End: 08-12-2024 Basic metabolic 1998 panel - Serum or Plasma Basic metabolic panel Lab Routine Calculus of ureter Expected: 08/13/2023 (Approximate), Expires: 08/12/2024 [facility] Comment on above: Expected: 08/13/2023 (Approximate), Expires: 08/12/2024 Start: 08-13-2023 End: 08-12-2024 CT Abdomen WO contrast CT abdomen pelvis wo IV contrast Imaging Routine Left flank pain Calculus of ureter Expected: 08/13/2023, Expires: 08/12/2024 [facility] Comment on above: Expected: 08/13/2023 , Expires: 08/12/2024 Start: 08-13-2023 End: 02-12-2024 PSA, Monitoring ([facility]) PSA, Monitoring ([facility]) Lab Routine Disease of prostate Expected: 08/13/2023 (Approximate), Expires: 02/12/2024 [facility] Work Phone: Comment on above: Expected: 08/13/2023 (Approximate), Expires: 02/12/2024 Start: 08-13-2023 End: 08-13-2023 Patient encounter procedure 08/13/2023 10:00 AM EDT Office Visit [facility] [address] [place] [phone] Rebecca Buck MD [address] [place], [place] [id number] [facility] Start: 07-17-2023 Bacteria identified in Urine by Culture [facility] Start: 07-17-2023 [facility] Start: 07-16-2023 Measurement of substance [facility] Start: 05-07-2023 Medicare Advantage A nnual Wellness Visit Medicare Advantage Annual Wellness Visit [facility] Start: 03-02-2023 Creatinine measurement Creatinine Le carmela [facility] Start: 03-02-2023 Potassium measurement Potassium Leve l [facility] Start: 08-22-2022 Diabetes mellitus screening Diabetes Screening [facility] Start: 01-05-2022 Influenza vaccination [facility] Start: 12-23-2021 EPV, Provider: Wing Ritter, Status: Pen, Time: 9:30 AM EPV, Provider: Wing Ritter, Status: Pen, Time: 9:30 AM [facility]owsk[facility]Gy[facility] ma Work Phone: Start: 12-05-2021 Influenza vaccination Flu vaccine (# 1) [facility] Start: 12-05-2021 Blood chemistry [facility] Work Phone: Start: 12-05-2021 Complete blood count [facility] Work Phone: Start: 12-05-2021 [facility] Work Phone: Start: 12-01-2021 [facility] Work Phone: Start: 08-05-2021 COVID-19 VACCINE (4 - Booster for Moderna series) COVID-19 VACCINE (4 - Booster for Moderna series) [facility] Start: 08-05-2021 COVID-19 Vaccine (4 - Booster for Pfizer series) COVID-19 Vaccine (4 - Booster for Pfizer series) [facility] Start: 06-01-2021 COVID-19 Vaccine (4 - Booster for Pfizer series) COVID-19 Vaccine (4 - Booster for Pfizer series) [facility] Start: 05-07-2021 ADVANCE DIRECTIVE DISCUSSION ADVANCE DIRECTIVE DISCUSSION [facility] Start: 08-11-2020 Screening for malign ant neoplasm of colon [facility] Start: 07-30-2020 Screening for malign ant neoplasm of colon [facility] Start: 01-20-2020 Echocardiography Echocardiogram [facility] russ [address] [place] Work Phone: Start: 01-06-2020 Influenza vaccination INFLUENZA (#1) [facility] Start: 12-04-2019 Annual Wellness Visi t (AWV) Annual Wellness Visit (AWV) [facility] Start: 12-04-2019 Creatinine monitoring Creatinine mon itoring [facility] Work Phone: Start: 12-04-2019 Hepatitis C screen Hepatitis C scree n [facility] Work Phone: Comment on above: Postponed from 05/06 (Patient Refused) Start: 12-04-2019 Potassium monitoring Potassium monit oring [facility] Work Phone: Start: 12-04-2019 Prostate specific an tigen measurement Prostate Specific Antigen (PSA) Screening or Monitoring [facility] Start: 12-04-2019 Shingles Vaccine (1 of 2) Day gles Vaccine (1 of 2) [facility] Work Phone: Comment on above: Postponed from 05/06 (Patient Refused) Start: 06-07-2019 Colon Cancer Screen FIT/FOBT [facility] Work Phone: Start: 08-14-2017 LIPID SCREEN LIPID SCREEN [facility] Start: 2017 ADVANCE DIRECTIVE DISCUSSION ADVANCE DIRECTIVE DISCUSSION [facility] Start: 2017 PNEUMOCOCCAL: 65+ (1 - PCV) PNEUMOCOCCAL: 65+ (1 - PCV) [facility] Start: 2017 PNEUMOVAX AGE 65 AND OVER WITH 5YR LOOKBACK (#1) PNEUMOVAX AGE 65 AND OVER WITH 5YR LOOKBACK (#1) [facility] Start: 04-14-2016 DIABETES SCREEN DIABETES SCREEN [facility] Start: 2012 RSV Immunization age d 60 or older (1 - 1-dose 60+ series) RSV Immunization aged 60 or older (1 - 1-dose 60+ series) [facility] Start: 2007 PROSTATE CANCER SCRE ENING DISCUSSION PROSTATE CANCER SCREENING DISCUSSION [facility] Start: 2002 Shingles vaccine (1 of 2) Day gles vaccine (1 of 2) [facility] Start: 2002 SHINGRIX VACCINE (1 of 2) DAY GRIX VACCINE (1 of 2) [facility] Start: 2002 Tuberculosis screening COLOREC MONIQUE CANCER SCREENING,SEE MODIFIER [facility] Start: 2002 Zoster Vaccines (1 of 2) Zoste r Vaccines (1 of 2) [facility] Start: 1997 COLOGUARD (FIT-DNA) COLOGUARD (FIT-D NA) [facility] Start: 1997 Colonoscopy COLONOSCOPY [facility] Start: 1997 COLORECTAL CANCER SCREENING COLORECTAL CANCER SCREENING [facility] Start: [address] COLONOGRAPHY [facility] Start: 1997 FECAL OCCULT BLOOD FECAL OCCULT BLOO D [facility] Start: 1997 Screening for malign ant neoplasm of colon [facility] Start: 1997 SIGMOIDOSCOPY SIGMOIDOSCOPY [facility] Start: 1987 Diabetes screen Diabetes screen [facility] Start: 1971 Urine microalbumin profile DTAP,TDAP,TD (1 - Tdap) [facility] Start: 1970 ANNUAL PCP TEAM 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 DISEASE VISIT ANNUAL PCP TEAM CHRONIC DISEASE VISIT [facility] Start: 1970 BP CONTROLLED (<130/80) BP CONTROLLE D (<130/80) [facility] Start: 1970 Diabetes mellitus screening Diabetes Screening [facility] Start: 1970 HEPATITIS C SCREENING HEPATITIS C SC REEMARRY [facility] Start: 1970 Hepatitis C screening S [facility] Start: 1964 Adult depression screening assessment DEPRESSION SCREENING [facility] Start: 1964 Depression Screen Depression Screen [facility] Start: 1962 Diabetic foot examination Diabetes: Foot Exam [facility] Start: 1962 Glaucoma screening Diabetes: R etinopathy Screening [facility] Start: 1962 Preventive dental service Diabetes: Dental Exam [facility] Start: 1952 Echocardiography Echocardiogram [facility] Start: 1952 Hemoglobin A1c measurement Diabetes: Hemoglobin A1C [facility] Start: 1952 Lipid panel Lipid Panel [facility] Start: 1952 Screening for malign ant neoplasm of colon [facility] Bacteria identified in Urine by Culture Urine Culture [facility] Work Phone: End: 03-02-2022 CBC W Auto Differential panel - Blood CBC with Auto Differential Lab Routine One Time for 1 Occurrences starting 03/02/2022 until 03/02/2022 [employer] Work Phone: Comment on above: One Time for 1 Occur rences starting 03/02/2022 until 03/02/2022 End: 03-02-2022 Comprehensive metabolic 2000 panel - Serum or Plasma Comprehensive Metabolic Panel Lab STAT One Time for 1 Occurrences starting 03/02/2022 until 03/02/2022 [facility] Work Phone: Comment on above: One Time for 1 Occur rences starting 03/02/2022 until 03/02/2022 End: 09-06-2023 CT Abdomen WO contrast [facility] [email or web address] Work Phone: Comment on above: Once for [...] AM EDT [facility] Work Phone: Oxygen therapy [[facility] Data Set] Initiate Oxygen Therapy Protocol Respiratory Care Routine As Needed until discontinued starting 10/21/2021 [facility] Comment on above: As Needed until [...] been ruled out! Planned Goals not documented PL-Srexzt[facility]oc-Kln ma Work Phone: Immunizations Immunization Date Immunization Notes Care Provider Christopher wandamichaela 03-04-2019 influenza, high dose seasonal, preservative-free Sarika [...] Phone: Payers Date Payer Category Payer Unknown [id number] 03-10-2024 Self-pay 01-05-2022 Medicaid 01-05-2022 Medicare 01-05-2022 Medicare [id number] 10-05-2021 Medicaid [id number] 06-07-2021 Medicare UHC MEDICARE UHC DUAL COMPLETE HMO SNP [id number] 06/07/2021-Present [phone] [address] [place] [address] Medicare [id number] 06-07-2021 Medicare UHC MEDICARE [employer] DUAL COMPLETE [id number] 06/07/2021-Present [phone] [address] [place] [id number] 11-05-2019 Medicare UHC AAR MEDICAR E [facility] AAR MEDICARE O [id number] 11/05/2019-Present HMO [id number] 07-06-2015 Medicare UHC MEDICARE UHC MEDICARE COMPLETE xxxxxxxxx 2015-Present xxxxxxxxx [id number] [id number] 1952 Unknown [id number] 2.16.840.1.761125.3.579. 2.668 1952 Unknown [id number] 2.16840.1.397806.3.579. 2.668 1952 Unknown [id number] 2.16840.1.851461.3.579. 2.668 1952 Unknown [id number] 2.16840.1.629364.3.579. 2.668 1952 Unknown [id number] 2.16840.1.551383.3.579. 2.668 1952 Unknown [id number] 2.16.840.1.781243.3.579. 2.668 1952 Unknown [id number] 2.16.840.1.976776.3.579. 2.668 Private Health Insurance Unknown Unknown [id number] 2.16.840.1.141484.3.579. 2.462 Unknown [id number] 2.16.840.1.699685.3.579. 2.462 Unknown [id number] 2.16.840.1.190031.3.579. 2.462 Unknown [id number] 2.16.840.1.490569.3.579. 2.462 Unknown [id number] 2.16.840.1.250141.3.579. 2.462 Unknown [id number] 2.16.840.1.350231.3.579. 2.462 Unknown [id number] 2.16.840.1.203071.3.579. 2.462 Unknown [id number] 2.16.840.1.894301.3.579. 2.462 Unknown [id number] 2.16.840.1.272225.3.579. 2.462 Unknown [id number] 2..840.1.117818.3.579. 2.462 Unknown [id number] 2.16.840.1.326567.3.579. 2.462 Unknown [id number] 2..840.1.482826.3.579. 2.462 Unknown [id number] 2.840.1.569796.3.579. 2.462 Unknown [id number] 2.16.840.1.071915.3.579. 2.462 Unknown [id number] 2.16.840.1.869584.3.579. 2.462 Unknown [id number] 2.16.840.1.525318.3.579. 2.462 Unknown [id number] 2.16.840.1.686208.3.579. 2.462 Unknown [id number] 2.16.840.1.892536.3.579. 2.462 Unknown [id number] 2.16.840.1.515120.3.579. 2.462 Unknown [id number] 2.16.840.1.726573.3.579. 2.462 Unknown [id number] 2.16.840.1.948841.3.579. 2.462 Unknown [id number] 2.16.840.1.155144.3.579. 2.462 Unknown [id number] 2.16.840.1.392431.3.579. 2.462 Unknown [id number] 2.16.840.1.133064.3.579. 2.462 Unknown [id number] 2.16.840.1.400612.3.579. 2.462 Unknown [id number] 2.16840.1.003895.3.579. 2.462 Unknown [id number] 2.16.840.1.998692.3.579. 2.462 Unknown [id number] 2.840.1.653697.3.579. 2.462 Unknown [id number] 2.840.1.313702.3.579. 2.462 Unknown [id number] 2.840.1.422924.3.579. 2.462 Unknown [id number] 2.840.1.965735.3.579. 2.462 Unknown [id number] 2.840.1.475345.3.579. 2.462 Unknown [id number] 2.840.1.387156.3.579. 2.462 Unknown [id number] 2.840.1.451915.3.579. 2.462 Unknown [id number] 2.840.1.529346.3.579. 2.462 Unknown [id number] 2.16840.1.525353.3.579. 2.462 Unknown [id number] 2.840.1.944959.3.579. 2.462 Unknown [id number] 2.16840.1.697589.3.579. 2.462 Unknown [id number] 2.840.1.668031.3.579. 2.462 Unknown [id number] 2.16840.1.429619.3.579. 2.462 Unknown [id number] 2.16.840.1.147319.3.579. 2.462 Unknown [id number] 2.16.840.1.069226.3.579. 2.462 Unknown [id number] 2.16.840.1.601976.3.579. 2.462 Unknown [id number] 2.16.840.1.131467.3.579. 2.462 Unknown [id number] 2.16.840.1.102282.3.579. 2.462 Unknown [id number] 2..840.1.960170.3.579. 2.462 Unknown [id number] 2.840.1.130149.3.579. 2.462 Unknown [id number] 2..840.1.943307.3.579. 2.462 Unknown [id number] 2.840.1.139811.3.579. 2.462 Unknown [id number] 2.840.1.146783.3.579. 2.462 Unknown [id number] 2.840.1.057002.3.579. 2.462 Unknown [id number] 2.840.1.955075.3.579. 2.462 Unknown [id number] 2..840.1.986794.3.579. 2.462 Unknown [id number] 2.840.1.921727.3.579. 2.462 Unknown [id number] 2.840.1.751642.3.579. 2.462 Unknown [id number] 2..840.1.107182.3.579. 2.462 Unknown [id number] 2.16.840.1.060880.3.579. 2.462 Unknown [id number] 2.16.840.1.635135.3.579. 2.462 Unknown [id number] 2.840.1.957103.3.579. 2.462 Unknown [id number] 2.16.840.1.944005.3.579. 2.462 Unknown [id number] 2.16.840.1.578224.3.579. 2.462 Unknown [id number] 2.16.840.1.783946.3.579. 2.462 Unknown [id number] 2.16.840.1.447013.3.579. 2.462 Unknown [id number] 2.16.840.1.131386.3.579. 2.462 Unknown [id number] 2.16.840.1.873359.3.579. 2.462 Unknown [id number] 2.16.840.1.185684.3.579. 2.462 Unknown [id number] 2.16.840.1.181164.3.579. 2.462 Unknown [id number] 2.16.840.1.297006.3.579. 2.462 Unknown [id number] 2.16.840.1.044833.3.579. 2.462 Unknown [id number] 2.16.840.1.708105.3.579. 2.462 Unknown 13772032 2.16.840.1.166413.3.579. 2.462 Unknown [id number] 2.16.840.1.772476.3.579. 2.462 Unknown [id number] 2.16.840.1.695847.3.579. 2.462 Unknown [id number] 2.16.840.1.748750.3.579. 2.462 Unknown [id number] 2.16.840.1.845687.3.579. 2.462 Unknown [id number] 2.16.840.1.515034.3.579. 2.462 Unknown 57799049 2.16.840.1.185030.3.579. 2.462 Unknown [id number] 2.16.840.1.457508.3.579. 2.462 Unknown [id number] 2.16.840.1.440686.3.579. 2.462 Unknown [id number] 2.16.840.1.909854.3.579. 2.462 Unknown [id number] 2.16.840.1.059907.3.579. 2.462 Unknown [id number] 2.16.840.1.634649.3.579. 2.462 Unknown 65281749 2.16.840.1.021807.3.579. 2.462 Unknown [id number] 2.16.840.1.270432.3.579. 2.462 Unknown [id number] 2.16.840.1.763084.3.579. 2.462 Unknown 12245459 2.16.840.1.624955.3.579. 2.462 Unknown [id number] 2.16.840.1.853218.3.579. 2.462 Unknown [id number] 2.16.840.1.972178.3.579. 2.462 Unknown [id number] 2.16.840.1.443513.3.579. 2.462 Unknown [id number] 2.16.840.1.080048.3.579. 2.462 Unknown [id number] 2.16.840.1.045012.3.579. 2.462 Unknown [id number] 2.16.840.1.384436.3.579. 2.462 Unknown [id number] 2.16.840.1.831071.3.579. 2.462 Unknown [id number] 2.16.840.1.814973.3.579. 2.462 Unknown [id number] 2.16.840.1.853105.3.579. 2.462 Unknown [id number] 2.16.840.1.570783.3.579. 2.462 Unknown [id number] 2.16.840.1.306316.3.579. 2.462 Unknown [id number] 2.16.840.1.956073.3.579. 2.462 Unknown [id number] 2.16.840.1.716791.3.579. 2.462 Unknown [id number] 2.16.840.1.120017.3.579. 2.462 Unknown [id number] 2.840.1.634002.3.579. 2.462 Unknown [id number] 2.840.1.037475.3.579. 2.462 Unknown [id number] 2.840.1.835339.3.579. 2.462 Unknown [id number] 2.840.1.930793.3.579. 2.462 Unknown [id number] 2.840.1.031559.3.579. 2.462 Unknown [id number] 2.840.1.625930.3.579. 2.462 Unknown [id number] 2.840.1.388778.3.579. 2.462 Unknown [id number] 2..840.1.801096.3.579. 2.462 Unknown [id number] 2.840.1.032420.3.579. 2.462 Unknown [id number] 2.840.1.021874.3.579. 2.462 Unknown [id number] 2.840.1.682599.3.579. 2.462 Unknown [id number] 2.840.1.271586.3.579. 2.462 Unknown [id number] 2.16.840.1.785690.3.579. 2.462 Unknown [id number] 2.16.840.1.906342.3.579. 2.462 Unknown [id number] 2.840.1.715220.3.579. 2.462 Unknown [id number] 2.16.840.1.761533.3.579. 2.462 Social History Date Type Detail Facility Start: 05-23-2018 End: 05-19-2019 Tobacco smoking status NHIS Former smoker [facility] Work Phone: History of tobacco use Cigar Smoker [facility] Work Phone: Start: 05-19-2019 End: 08-13-2023 Cigarettes smoked current (pack per day) - Reported [facility] Work Phone: Start: 05-19-2019 End: 08-13-2023 Alcohol intake Current non-drinker of alcohol (finding) [facility] Work Phone: Start: 12-03-2018 History SDOH Physica l Activity DPW 7 [employer] Work Phone: Start: 12-03-2018 History SDOH Physica l Activity MPS 9 [employer] Work Phone: Start: 12-03-2018 End: 10-31-2021 History SDOH Stress 1 [employer] Work Phone: Start: 12-03-2018 History SDOH Financial 5 [employer] Work Phone: Start: 12-03-2018 History SDOH Transpo rt Med 2 [employer] Phone: Start: 1950 Sex Assigned At Not on file [facility] [employer] Work Phone: Start: 08-13-2012 End: 11-13-2019 Tobacco smoking status LAIS Never smoker [facility] Start: 05-23-2018 End: 11-13-2019 Tobacco use and exposure Never used [facility] Start: 11-13-2019 History SDOH Alcohol Std Drinks 98 [facility] Start: 10-11-2021 End: 02-15-2022 Exposure to SARS-CoV-2 (event) Not sure [facility] Start: 1950 Sex Assigned At Male [facility] History of tobacco use Current smoker [facility] Work Phone: History of tobacco use Cigarette Smoker [facility] Work Phone: Start: 10-31-2021 End: 08-13-2023 Tobacco use panel [facility] Tobacco smoking stat us NHIS Unknown if ever smoked [facility] Work Phone: Start: 07-11-2024 End: 08-21-2024 Sex Male (finding) [facility] NEGATED: Highlighted row - - [facility] Work Phone: Medical Equipment Procedure Code Equipment Code Equipment Origin al Text Equipment Identifier Dates Kit Bactiseal Woodard maria guadalupe Silicone Barium Catheter Shunt Sterile - [id number] Start: 06-08-2021 Catheter Bactise al 14cm External Drainage Csf Sterile Latex Free - [id number] Start: 08-05-2021 Valve Certas Shannon nt Inline - [id number] Start: 06-08-2021 Valve Certas Shannon nt Inline - [id number] Start: 08-05-2021 Valve Certas Shannno nt Inline - [id number] Start: 08-09-2021 Goals Date Patient Goal [...] status health issues are not documented [facility] Work Phone: Mental Status Date Assessment Result Facility NEGATED: Highlighted row Cognitive function [Interpretation] Cognitive status health issues are not documented [facility] Work Phone: Clinical Notes 05-31-2021 [...] Hydrocephalus, adult (CMS/HCC) (HCC) Kidney stone Neuropathy MOTORS AND CONTROLS TESTER (ventriculoperitoneal) shunt status Past Surgical History: Procedure [...] PM documented in this encounter [facility] 08-31-2023 Note S: Shanthi from [facility] spoke with [facility] nurse regarding voiding trial procedure. B: Onset [...] Protocols used: Information Only Call - No [id number]-LS [facility] 08-31-2023 Telephone encounter Note S: Shanthi from [facility] spoke with [facility] nurse regarding voiding trial procedure. B: Onset of symptoms/concern today. A: [facility] is calling to make sure that the patient doesn't need to stand for the procedure as the patient can't. Patient using a boaz lift and would need to come by cot if so. Shanthi advised that the patient would need to come back cot if unable to stand to move from chair to exam table for procedure. R: [facility] will attempt to arrange for transportation for September 03 but might need to reschedule appointment if unable to obtain transportation. Reason for Disposition [1] Caller requesting NON-URGENT health information AND [2] PCP's office is the best resource Protocols used: Information Only Call - No [id number] [facility] 08-31-2023 Miscellaneous Notes S: Shanthi from [facility] spoke with [facility] nurse regarding voiding trial procedure. B: Onset of symptoms/concern today. A: [facility] is calling to make sure that the patient doesn't need to stand for the procedure as the patient can't. Patient using a boaz lift and would need to come by cot if so. Shanthi advised that the patient would need to come back cot if unable to stand to move from chair to exam table for procedure. R: [facility] will attempt to arrange for transportation for September 03 but might need to reschedule appointment if unable to obtain transportation. Reason for Disposition [1] Caller requesting NON-URGENT health information AND [2] PCP's office is the best resource Protocols used: Information Only Call - No [id number]-PVFVN-IN documented in this encounter [facility] 08-29-2023 Telephone encounter Note Lm on daughters vm to advise them to call the number for the educational manager to get clarification, and to call back with further questions [facility] 08-29-2023 Miscellaneous Notes Lm on daughters vm to advise them to call the number for the educational manager to get clarification, and to call back with further questions Yes, they will need to call the number given to them. Please advise Name of caller: Shanthi Contact phone number: [phone] Relationship to Patient: patient Provider: MD Cielo Practice: [facility] Chief Complaint/Reason for Call: [facility] called in to see if Pt would need to come by cot for his CT appt due to Pt being Boaz. TEA did reach out to office and was advised to reach out to Central Scheduling. TEA did reach out to and was advised to let [facility] know that she would need to reach out to call Maury Cedeño Reporting Coordinator at [facility] [phone] to get clarifications. TEA did reach back out to [facility] and advised and provider Maury's #. Please advise Best time of day caller can be reached: Any Patient advised that office/PCP has 24-48 business hours to return their call: N/A documented in this encounter [facility] 08-27-2023 Telephone encounter Note Yes, they will need to call the number given to them. [facility] 08-27-2023 Telephone encounter Note Please advise [facility] 08-21-2023 Telephone encounter Note Name of caller: Shanthi Contact phone number: [phone] Relationship to Patient: patient Provider: MD Cielo Practice: [facility] U[facility] Chief Complaint/Reason for Call: [...] to reach out to call Maury Cedeño Reporting Coordinator at [facility] [phone] to get clarifications. CAC did reach back out to [facility] and advised and provider Maury's #. Please advise Best time of day caller can be reached: Any Patient advised that office/PCP has 24-48 business hours to return their call: N/A [facility] 08-13-2023 History of Present illness Narrative Images [...] Hydrocephalus, adult (CMS/HCC) (HCC) Kidney stone Neuropathy MOTORS AND CONTROLS TESTER (ventriculoperitoneal) shunt status Past Surgical History: Past [...] AM documented in this encounter [facility] 06-25-2023 Telephone encounter [facility] stating [facility]t scheduled 07/10/23 Willow has to be made further out, pt being transported by cot. Changed appt to 08/13/23 per [facility] only avail time for transport, first avail with DR Buck at 10:00 AM. [facility] 06-25-2023 Miscellaneous Notes [facility] in stating appt scheduled 07/10/23 Willow has to be made further out, pt being transported by cot. Changed appt to 08/13/23 per [facility] only avail time for transport, first avail with DR Buck at 10:00 AM. documented in this encounter [facility] 12-22-2021 Hospital Discharge instructions SANIA Lou - 12/22/2021 2:32 AM EDT Please take medication as prescribed Please follow up with your Physicians as instructed in this discharge paperwork Thank you for choosing [facility] I appreciate your patience Please return to the emergency department if your symptoms worsen, or new symptoms develop as discussed documented in this encounter [facility] Work Phone: 10-29-2021 Note Hospitalist Discharg e [...] abnormality and previous indwelling tubing history of MOTORS AND CONTROLS TESTER shunt ? #?Bilateral lower extremity wounds-wound care [...] neurologist. Patient will be transferred to the snf and his Coumadin was continued, dosing instructions were given. Wound care was given for his lower extremity wounds. Consults: neurology, vascular surgery, gastroenterology Discharge Instructions: Diet: No diet orders on file Activity: as tolerated Disposition: Patient discharged in stable condition to snf . Greater than 30 minutes spent discharging [...] Your Medications These medications were sent to [facility] [address] [place] [address] - [phone] - [phone] [place] [id number] ? levETIRAcetam 750 MG tablet ? warfarin 6 MG tablet Recommended Follow-up: No follow-up provider specified. Complexity of Follow up: [] Moderate Complexity: follow up within 7-14 calendar days (99628) [x] Severe Complexity: follow up within 7 calendar days (21235) Follow up Testing, Pending results or Referrals [...] Increased fatigue or (more content not included)... [facility] 10-29-2021 Hospital Discharge instructions Fabi Subramanian [...] Information Primary Emergency Contact: Triny Damon Address: [address] [place] [address] [place], [place] [id number] [place] [address] Relation: Brother/Sister Secondary Emergency Contact: Melissa Sifuentes Mobile Relation: Child Preferred language: Armenian Past Surgical History: Past Surgical History: Procedure Laterality Date BRAIN SURGERY CHOLECYSTECTOMY COLONOSCOPY HERNIA REPAIR Immunization History: Immunization History Administered Date(s) Administered Influenza Virus Vaccine 02/08/2015 Influenza, High Dose (Fluzone 65 yrs and older) 01/25/2018, 03/04/2019 Influenza, Quadv, IM, (6 mo and older Fluzone, Flulaval, Fluarix and 3 yrs and older Afluria) 02/24/2016, 02/14/2017 Pneumococcal Conjugate 13-valent ([id number]) 09/22/2016 Pneumococcal Conjugate Vaccine 02/04/2013 Pneumococcal Polysaccharide ([id number]) 12/03/2018 Tdap (Boostrix, Adacel) 09/22/2016 Active Problems: [...] Dependent Dressing Dependent Toileting Dependent Feeding Dependent Health And Wellness Sales Consultant Dependent Med Delivery whole in [facility] Wound Care Documentation and Therapy: Wound 10/21/21 [...] Q4H prn SOB Oxygen Therapy: {Therapy; copd oxygen:58877} Ventilator: { CC Vent List:[id number]} Rehab Therapies: {THERAPEUTIC INTERVENTION:[id number]} Weight Bearing Status/Restrictions: Weight Bearing - Patient was bedbound in hospital Other Medical Equipment (for information only, NOT a DME order): wheelchair, hospital bed, and Boaz Other Treatments: Patient's personal belongings (please select all that are sent with patient): {[facility] DME Belongings:[id number]} RN SIGNATURE: CASE MANAGEMENT/SOCIAL WORK SECTION Inpatient Status Date: Readmission Risk Assessment Score: Readmission Risk Risk of Unplanned Readmission: 11 Discharging to Facility/ Agency Name: Address: Phone: Fax: Dialysis Facility (if applicable) Name: Address: Dialysis Schedule: Phone: Fax: Independent Jeweler/Tower Control Operator signature: {Esignature:[id number]} PHYSICIAN SECTION Prognosis: Fair Condition at Discharge: [...] the diagnosis listed and that he requires Residential Facility for greater than 30 days. Update Admission H&P: No change in H&P PHYSICIAN SIGNATURE: documented in this encounter [facility] Work Phone: 10-29-2021 History of Present illness Narrative [facility] Anticoagulation Management Service ([facility]) Inpatient Warfarin Consult HPI: Andrew Sifuentes is a 71 y.o. 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 Past Medical History: Diagnosis Date ED (erectile dysfunction) Hemorrhoids Hydrocephalus, adult (HCC) Kidney stone Neuropathy MOTORS AND CONTROLS TESTER (ventriculoperitoneal) shunt status Patient is newly referred to the [facility] clinic for warfarin management. Pt was referred [...] drug interactions and adjust dose accordingly. 3. [facility] will manage while inpatient and sign off at discharge. Patient resides in a SNF. If discharged, recommend continuing close to 6-7mg warfarin daily. 4. Will provide warfarin education including [facility] warfarin booklet, if appropriate. Vimal Oropeza [facility], PharmD IRVIN Consult Service is available daily [phone]. Please search for covering pharmacist name via S[employer]beat or Groups --> Pharmacy --> Anti-Coagulation Consult Pharmacist (on 3rd page). If no response via PerfectServe, please page [phone]. Patient seen and chart reviewed. Afebrile. Adequate oxygenation on room air. Baseline mentation. Exam stable X 5 systems. Hgb 11.0 WBC 10.0 K Platelets 344 K Creatinine 0.71 GFR > 90 cc/min. NSE 20.8 with hemolysis. PT 30.8 INR 3.1 Conversion to Warfarin has been completed. APS w/u pending. Discussed with patient's staff midwife/apprenticeship director. Will continue to monitor. Total visit time > 35 minutes. Neurology Attending Progress Note SUBJECTIVE: No issues overnight. Care discussed with nursing staff/patient's medical team MRI brain reported nothing acute. Assessment and Plan: 71 yr M with H obstructive hydrocephalus s/p MOTORS AND CONTROLS TESTER shunt in 1987, needing multiple revisions and [...] normal limits and both old and new MOTORS AND CONTROLS TESTER shunt tubing noted. At present patient is awake, follows commands, was able to tell his name, and that he was in hospital but not oriented to time. Per documentation patient had NCSE in May 2021, was on Vimpat, but it was discontinued as there was no evidence of recurrent seizures in july [address] [facility], per daughter patient was on Dilantin for 31 yrs. Per daughter patient had seizures in the past and also felt he had staring episodes 10/26/2021 morning. Per daughter patient has been essentially bed bound in [place] since May 2021 but prior to that was independent Impressions: H/O hydrocephalus H/O seizure, H/O stroke Acute DVT H/O PE Plan: -MRI brain w/o contrast nothing acute -CT head done during this admission reported no hydrocephalus, ventricles within normal limits and both old and new MOTORS AND CONTROLS TESTER shunt tubing noted -EEG mild to moderate slow, no seizures reported -Labs reviewed -Hydrocephalus management per Neurosurgery. At present patient does not have hydrocephalus on CT head done this admission. No Neurosurgery services available as inpatient in [facility]. Patient can follow up with Neurosurgery as outpatient and if ends up needing inpatient neurosurgery requirement then may need to be transferred to [facility]. -No clear clinical signs of ventriculitis. Defer evaluation to primary medical team/ID as deemed necessary. -Discussed with daughter in detail on . She was concerned that patient has had h/o seizures, and he has been taken off seizure medication, per note documentation patient had NCSE in May 2021 when he was admitted to [facility]. Per daughter she would want patient [...] is no in house Neurology coverage at [facility] over the weekend, primary hospitalist team to contact crayon sawyer Neurology at [facility] for any weekend neurological issues related to the patient and if need to discuss any neurological test results/findings. Other deal in house Neurology coverage will be available from Sunday at [facility] and please call crayon sawyer Neurology back on Sunday if need further assistance. This note has been generated using Interview Master dictation software. It may contain incorrect words, punctuation's and spellings that were not noted in the review of the note prior to signing. This note has been generated using Interview Master dictation software. It may contain incorrect words, [...] eGFR >90.0 >60 mL/min EGFR IF NonAfrican Mauritian >90.0 >60 mL/min Calcium 9.1 8.4 - 10.4 mg/dL Albumin,Serum 3.7 3.5 - 5.0 g/dL Total Protein 7.1 6.3 - 8.2 g/dL Total Bilirubin 0.4 0.2 - 1.3 mg/dL Alkaline Phosphatase 103 38 - 126 U/L ALT 26 0 - 49 U/L AST 24 15 - 46 U/L Since admission: No results for input(s): CKTOTAL, TROPONINI in the last 72 hours. Recent Labs 10/28/218 ALKPHOS 103 ALT 26 AST 24 BILITOT 0.4 LABALBU 3.7 @BRIEFLAB([facility]) ABGs: )No results for input(s): PH, [...] Radiology ACCESSION EXAM DATE/TIME PROCEDURE ORDERING PROVIDER [id number] 10/21/2021 15:30 EDT CR Calcaneus 2+ Views [id number] -SHRUTHI MALIK Left CPT code 28100 Reason For Exam (CR Calcaneus 2+ Views [...] Tomography ACCESSION EXAM DATE/TIME PROCEDURE ORDERING PROVIDER [id number] 10/26/2021 11:[address] Head or Brain w/o EDWIN, DONKEY ENGINE FIRER/FIREMAN, SARINA Contrast CPT code 67607 Reason For Exam (CT Head or Brain w/o Contrast) hydrocephalus. thank you Report CLINICAL INFORMATION: Hydrocephalus. Shunt. 3 mm axial cuts through the head are obtained without IV contrast. The examination is compared to a previous study dated 06/29/2014. FINDINGS: Old MOTORS AND CONTROLS TESTER shunt tubing is noted bilaterally. The new [...] are clear. IMPRESSION: 1. Old and new MOTORS AND CONTROLS TESTER shunt tubing. 2. No hydrocephalus. 3. Atrophy [...] Imaging ACCESSION EXAM DATE/TIME PROCEDURE ORDERING PROVIDER [id number] 10/23/2021 11:08 EDT MRI Abdomen w/o Contrast WING SRIVASTAVA CPT code 46931 Reason For Exam (MRI Abdomen w/o Contrast) [...] Medicine ACCESSION EXAM DATE/TIME PROCEDURE ORDERING PROVIDER [id number] 10/21/2021 07:55 EDT NM Pulmonary Perfusion [id number] -SHAILESHMAY w/ Vent Aerosol CPT code 96842 A9567 Reason For Exam (NM Pulmonary Perfusion [...] Extremity Bilateral Result Date: 10/22/2021 [facility] --- Ankle Brachial Index Report Patient Gurpreet : 1950 Study 10/21/2021 Name: Andrew Gonzalez (71yrs) Date: Age: 71 Account: [id number] Gender: M Loc: 444W BP: Ordering Physician: Shruthi Malik Fulfillment Coordinator: Rody Cross RDMS, RVT Interpreting Physician: Carina Call --- Location: [facility] --- Indications: Foot wounds. Originally ordered as a full PVR. 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 Images were obtained using a [employer] vascular ultrasound machine. --- Arterial pressure indices: [...] VENOUS DUPLEX Result Date: 10/21/2021 [facility] --- Lower Extremity Venous Duplex Report Patient DO GurpreetB: 1950 Study 10/21/2021 Name: Andrew Gonzalez (71yrs) Date: Age: 71 Account: [id number] Gender: M Loc: 444 BP: Ordering Physician: May Cash Fulfillment Coordinator: Rody Cross RDMS, RVT Interpreting Physician: Carina Call --- Location: [facility] --- Indications: Bilateral lower leg edema. --- [...] supine position. Images were obtained using a [employer] vascular ultrasound machine. --- Venous flow and [...] Radiology ACCESSION EXAM DATE/TIME PROCEDURE ORDERING PROVIDER [id number] 10/21/2021 08:16 EDT CR Chest 1 View Frontal [id number] MAY BOGGS CPT code 83883 Reason For Exam (CR Chest 1 View [...] Tomography ACCESSION EXAM DATE/TIME PROCEDURE ORDERING PROVIDER [id number] 10/22/2021 13:[address] Abdomen/Pelvis (No SRIVASTAVA, WING PO, No IV) CPT code 16085 Reason For Exam (CT Abdomen/Pelvis (No PO, [...] Imaging ACCESSION EXAM DATE/TIME PROCEDURE ORDERING PROVIDER [id number] 10/27/2021 13:14 EDT MRI Brain w/o Contrast UNASSIGNED, UNASSIGNED CPT code 82848 Reason For Exam (MRI Brain w/o Contrast) stroke Patient has MOTORS AND CONTROLS TESTER shunt in place, please follow Radiology protocol [...] included. Hospitalist Progress Note 10/28/2021 11:37 AM [phone]: Please page me @ [phone] for patient care issues. [phone]: Please page supervisor reactor fueling for any issues@ night Subjective: Admit Date: [...] abnormality and previous indwelling tubing history of MOTORS AND CONTROLS TESTER shunt # Bilateral lower extremity wounds-wound care [...] Services This report was created using the OptiWi-fi Speaking voice-activated system. Despite prompt dictation and careful editorial review, there may be subtle contextual errors in this report, due to misrecognition of the spoken word. Speech Language Pathology Facility/Department: [facility] Dysphagia Treatment Note NAME: [...] were worn throughout this session. [facility] Anticoagulation Management Service ([facility]) Inpatient Warfarin Consult HPI: Andrew Sifuentes is a 71 y.o. 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 Past Medical History: Diagnosis Date ED (erectile dysfunction) Hemorrhoids Hydrocephalus, adult (HCC) Kidney stone Neuropathy MOTORS AND CONTROLS TESTER (ventriculoperitoneal) shunt status Patient is newly referred to the [facility] clinic for warfarin management. Pt was referred [...] 1.1 7.5 mg 10/22 1.1 5 mg 6/17 1.1 5 mg Assessment/Plan: 1. INR is [...] PharmD IRVIN Consult Service is available daily [phone]. Please search for covering pharmacist name via Sensbeat or Groups --> Pharmacy --> Anti-Coagulation Consult Pharmacist (on 3rd page). If no response via Sensbeat, please page [phone]. 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 At present patient is awake, follows commands, was able to tell his name, and that he was in hospital but not oriented to time. Per documentation patient had NCSE in May 2021, was on Vimpat, but it was discontinued as there was no evidence of recurrent seizures in july [address] [facility], per daughter patient was on Dilantin for 31 yrs. Per daughter patient had seizures in the past and also felt he had staring episodes 10/26/2021 morning. Per daughter patient has been essentially bed bound in [place] since May 2021 but prior to that was independent Impressions: H/O hydrocephalus H/O seizure, H/O stroke Acute DVT H/O PE Plan: -MRI brain w/o contrast. Per daughter she would like MRI brain done to evaluate for strokes -CT head done during this admission today reported no hydrocephalus, ventricles within normal limits and both old and new MOTORS AND CONTROLS TESTER shunt tubing noted -EEG mild to moderate slow, no seizures reported -Labs reviewed -Hydrocephalus management per Neurosurgery. At present patient does not have hydrocephalus on CT head done this admission. No Neurosurgery services available as inpatient in [facility]. Patient can follow up with Neurosurgery as outpatient and if ends up needing inpatient neurosurgery requirement then may need to be transferred to [facility]. -No clear clinical signs of ventriculitis. Defer evaluation to primary medical team/ID as deemed necessary. -Discussed with daughter in detail on . She was concerned that patient has had h/o seizures, and he has been taken off seizure medication, per note documentation patient had NCSE in May 2021 when he was admitted to [facility]. Per daughter she would want patient [...] interim. This note has been generated using Scrypt, Incation software. It may contain incorrect words, punctuation's and spellings that were not noted in the review of the note prior to signing. This note has been generated using Interview Master dictation software. It may contain incorrect words, [...] LABALBU, AMYLASE, LIPASE in the last 72 hours.@BRIEFLAB([facility]) ABGs: )No results for input(s): PH, [...] Radiology ACCESSION EXAM DATE/TIME PROCEDURE ORDERING PROVIDER [id number] 10/21/2021 15:30 EDT CR Calcaneus 2+ Views [id number] -SHRUTHI MALIK Left CPT code 84499 Reason For Exam (CR Calcaneus 2+ Views [...] Result Date: 10/26/2021 [id number] Computed Tomography ACCESSION EXAM DATE/TIME PROCEDURE ORDERING PROVIDER [id number] 10/26/2021 11:[address] Head or Brain w/o JUNIE PINEDA ALLISON Contrast CPT code 83491 Reason For Exam (CT Head or Brain w/o Contrast) hydrocephalus. thank you Report CLINICAL INFORMATION: Hydrocephalus. Shunt. 3 mm axial cuts through the head are obtained without IV contrast. The examination is compared to a previous study dated 06/29/2014. FINDINGS: Old MOTORS AND CONTROLS TESTER shunt tubing is noted bilaterally. The new [...] are clear. IMPRESSION: 1. Old and new MOTORS AND CONTROLS TESTER shunt tubing. 2. No hydrocephalus. 3. Atrophy [...] Imaging ACCESSION EXAM DATE/TIME PROCEDURE ORDERING PROVIDER [id number] 10/23/2021 11:08 EDT MRI Abdomen w/o Contrast WING SRIVASTAVA CPT code 48906 Reason For Exam (MRI Abdomen w/o Contrast) [...] Medicine ACCESSION EXAM DATE/TIME PROCEDURE ORDERING PROVIDER [id number] 10/21/2021 07:55 EDT NM Pulmonary Perfusion [id number] MAY BOGGS w/ Vent Aerosol CPT code 04742 A9567 Reason For Exam (NM Pulmonary Perfusion [...] Extremity Bilateral Result Date: 10/22/2021 [facility] --- Ankle Brachial Index Report Patient DO GurpreetB: 1950 Study 10/21/2021 Name: Andrew Gonzalez (71yrs) Date: Age: 71 Account: [id number] Gender: M Loc: 444W BP: Ordering Physician: Shruthi Malik Fulfillment Coordinator: Rody Cross RDMS, RVT Interpreting Physician: Carina Call --- Location: [facility] --- Indications: Foot wounds. Originally ordered as a full PVR. 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 Images were obtained using a [employer] vascular ultrasound machine. --- Arterial pressure indices: [...] VENOUS DUPLEX Result Date: 10/21/2021 [facility] --- Lower Extremity Venous Duplex Report Patient DO GurpreetB: 1950 Study 10/21/2021 Name: Andrew Gonzalez (71yrs) Date: Age: 71 Account: [id number] Gender: M Loc: 444 BP: Ordering Physician: May Cash Fulfillment Coordinator: Rody Cross RDMS, T Interpreting Physician: Carina Call --- Location: [facility] --- Indications: Bilateral lower leg edema. --- [...] supine position. Images were obtained using a [employer] vascular ultrasound machine. --- Venous flow and [...] Radiology ACCESSION EXAM DATE/TIME PROCEDURE ORDERING PROVIDER [id number] 10/21/2021 08:16 EDT CR Chest 1 View Frontal [id number] MAY BOGGS CPT code 29092 Reason For Exam (CR Chest 1 View [...] Tomography ACCESSION EXAM DATE/TIME PROCEDURE ORDERING PROVIDER [id number] 10/22/2021 13:[address] Abdomen/Pelvis (No SRIVASTAVA, WING PO, No IV) CPT code 16739 Reason For Exam (CT Abdomen/Pelvis (No PO, [...] 12:48 PM Consults Speech Language Pathology Facility/Department: [facility] Dysphagia Treatment Note NAME: [...] reactivity and state change, indicative of a qmoi-wa-isdlpbqy diffuse encephalopathy of nonspecific etiology. There are [...] Easy to chew diet/cut up. NEVILLE Jones M.A.[facility]/IDENTIFICATION PRINTING MACHINE SETTER Time session ended: 1156 Total session minutes: 23 Images from the original note were not included. Hospitalist Progress Note 10/27/2021 10:40 AM [phone]: Please page tx @ [phone] for patient care issues. [phone]: Please page supervisor reactor fueling for any issues@ night Subjective: Admit Date: [...] Services This report was created using the OptiWi-fi Speaking voice-activated system. Despite prompt dictation and careful editorial review, there may be subtle contextual errors in this report, due to misrecognition of the spoken word. [facility] Anticoagulation Management Service ([facility]) Inpatient Warfarin Consult HPI: Andrew Sifuentes is a 71 y.o. 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 Past Medical History: Diagnosis Date ED (erectile dysfunction) Hemorrhoids Hydrocephalus, adult (HCC) Kidney stone Neuropathy MOTORS AND CONTROLS TESTER (ventriculoperitoneal) shunt status Patient is newly referred to the [facility] clinic for warfarin management. Pt was referred [...] PharmD IRVIN Consult Service is available daily [phone]. Please search for covering pharmacist name via Sensbeat or Groups --> Pharmacy --> Anti-Coagulation Consult Pharmacist (on 3rd page). If no response via Sensbeat, please page [phone]. I cleaned under patient's finger nails with [...] status with Warfarin. Discussed with patient's staff midwife/apprenticeship director. Will continue to monitor. Total visit time [...] if concern Hydrocephalus Chronic WOODARD's - Revised MOTORS AND CONTROLS TESTER shunt - daughter requested that pt have CT / MRI of brain and neurology be consulted, this was done. - "Hydrocephalus management per Neurosurgery. At present patient does not have hydrocephalus on CT head done this morning. No Neurosurgery services available as inpatient in [facility]. Patient can follow up with Neurosurgery as outpatient and if ends up needing inpatient neurosurgery requirement then may need to be transferred to [facility]. " Seizure history, unspecified - daughter [...] from nursing. Continue wound care. [facility] Anticoagulation Management Service ([facility]) Inpatient Warfarin Consult HPI: Andrew Sifuentes is a 71 y.o. 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 Past Medical History: Diagnosis Date ED (erectile dysfunction) Hemorrhoids Hydrocephalus, adult (HCC) Kidney stone Neuropathy MOTORS AND CONTROLS TESTER (ventriculoperitoneal) shunt status Patient is newly referred to the [facility] clinic for warfarin management. Pt was referred [...] Will provide warfarin education including [facility] warfarin booklet, if appropriate. Thank you for this consult Brionna Le, PharmD candidate Josie Gupta RPh, PharmD [facility] Consult Service is available daily [phone]. Please search for covering pharmacist name via Sensbeat or Groups --> Pharmacy --> Anti-Coagulation Consult Pharmacist (on 3rd page). If no response via PerfectServe, please page [phone]. Moon daughter stated that any of patient's family can call and obtain an update on patient's status. Speech Language Pathology Facility/Department: [facility] CLINICAL BEDSIDE SWALLOW EVALUATION [...] a small bore straw. Additionally discussed with IDENTIFICATION PRINTING MACHINE SETTER, agreeable to assess tomorrow. Recent Chest [...] and liquids between bites. Treatment Plan Requires IDENTIFICATION PRINTING MACHINE SETTER Intervention: Yes Duration of Treatment: 2 [...] Education Response: Verbalizes understanding;Needs reinforcement Therapy Time IDENTIFICATION PRINTING MACHINE SETTER Individual Minutes Time In: 826 Time Out: 852 Minutes: 26 NEVILLE Jones 10/26/2021 9:20 AM Comprehensive Nutrition Assessment Type and Reason for Visit: Initial (DT referral for wounds) Nutrition Recommendations/Plan: 1. Recommend to continue: Easy to Chew diet with Thin Liquids as currently ordered and safe for patient to participate in. Discussed with: RN, DONKEY ENGINE FIRER/FIREMAN, and IDENTIFICATION PRINTING MACHINE SETTER. IDENTIFICATION PRINTING MACHINE SETTER to assess tomorrow, best diet and [...] Malnutrition Assessment: Malnutrition Status: Moderate malnutrition (10/25/21 1899) Context: Chronic Illness Findings of the 6 [...] & deltoids),Scapula (trapezius) Fluid Accumulation: Mild Extremities Certified Peer Specialist Strength: Not Performed Nutrition Assessment: 71 [...] a small bore straw. Additionally discussed with IDENTIFICATION PRINTING MACHINE SETTER, agreeable to assess tomorrow. Nutrition Related [...] Anthropometric Measures: Height: 5' 7.01" (170.2 cm) [place] Body Weight (IBW): 148 lbs (67 kg) Admission Body Weight: 240 lb (108.9 kg) (stated 10/21/21) Current Body Weight: 205 lb 4 oz (93.1 kg) (10/25/21), 138.7 % IBW. Weight Source: Bed Scale Current BMI (kg/m2): 32.1 Usual Body Weight: 272 lb 11.3 oz (123.7 kg) (05/30/21 and 232.5# noted 08/14/21 at [facility] per EMR Review) % Weight Change (Calculated): -24.7 BMI Categories: Obese Class 1 (BMI 30.0-34.9) Estimated Daily Nutrient Needs: Energy Requirements Based On: Kcal/kg Weight Used for Energy Requirements: [place] (67.15 kg) Energy (kcal/day): 3659-2583 (27-32 kcal/kg IBW) --> increased need d/t wounds Weight Used for Protein Requirements: [place] (67.15 kg) Protein (g/day): 67-101 (1.0-1.5 g protein/kg IBW) Method Used for Fluid Requirements: Other (Comment) Fluid (ml/day): 0708-6942 mL daily or per MD Nutrition Diagnosis: [...] Plan of Care discussed with: Patient, RN, DONKEY ENGINE FIRER/FIREMAN Edwin Goals: Goals: other (specify) Specify Other [...] to determine Puja Almanza RD, LD Contact: *[phone] Or Via Sensbeat Hematology/Oncology Attending Progress Note SUBJECTIVE: Patient seen [...] IRON, TIBC, FERRITIN No results found for: [id number] No results found for: FOLATE PT 15.6 INR 1.5 CA 19 - 9 is 17 Protein S 138% Protein C 186% ASSESSMENT AND PLAN GI input appreciated. Patient continues with subtherapeutic INR. GI input appreciated. Discussed with patient's staff midwife/apprenticeship director. Will continue monitor. Total visit time > 35 minutes. [facility] Anticoagulation Management Service ([facility]) Inpatient Warfarin Consult HPI: Andrew Sifuentse is a 71 y.o. 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 Past Medical History: Diagnosis Date ED (erectile dysfunction) Hemorrhoids Hydrocephalus, adult (HCC) Kidney stone Neuropathy MOTORS AND CONTROLS TESTER (ventriculoperitoneal) shunt status Patient is newly referred to the [facility] clinic for warfarin management. Pt was referred [...] PharmD IRVIN Consult Service is available daily [phone]. Please search for covering pharmacist name via Sensbeat or Groups --> Pharmacy --> Anti-Coagulation Consult Pharmacist (on 3rd page). If no response via Sensbeat, please page [phone]. Progress Note 10/25/2021 9:36 AM Name: Andrew [...] if concern Hydrocephalus Chronic WOODARD's - Revised MOTORS AND CONTROLS TESTER shunt DC planning - 10/25/21: INR subtherapeutic, [...] if concern Hydrocephalus Chronic WOODARD's - Revised MOTORS AND CONTROLS TESTER shunt DC planning - Can be DC'd back to [facility] once MRI done if no acute findings, MRI is done, defer to hem / onc on plan for that, awaiting chest PA with fluoro Patient seen and chart reviewed. Consult dictated. Will ask GI to assess concerning the etiology of liver lesions. Will continue to monitor. [facility] Anticoagulation Management Service ([facility]) Inpatient Warfarin Consult HPI: Andrew Sifuentes is a 71 y.o. 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 Past Medical History: Diagnosis Date ED (erectile dysfunction) Hemorrhoids Hydrocephalus, adult (HCC) Kidney stone Neuropathy MOTORS AND CONTROLS TESTER (ventriculoperitoneal) shunt status Patient is newly referred to the [facility] clinic for warfarin management. Pt was referred [...] PharmD IRVIN Consult Service is available daily [phone]. Please search for covering pharmacist name via Sensbeat or Groups --> Pharmacy --> Anti-Coagulation Consult Pharmacist (on 3rd page). If no response via Sensbeat, please page [phone]. Follow up foot wounds Patient is more alert this morning. Waffle boots are on Ulcer left heel ulcer right foot Foot drop PE, chart reviewed. Patient relates that he does not walk at home. c ontinue wound care. Images from the original note were not included. Hospitalist Progress Note 10/23/2021 1:47 PM [phone]: Please page me ([phone]) or perfect serve me for patient care issues. [phone]: Please page IMS night Hospitalist for any issues. Subjective: Admit Date: 10/21/2021 PCP: MONIKA STALEY MD Room#: 315/1461 Admitting Synopsis: 71 y/o male presents from [...] if concern Hydrocephalus Chronic WOODARD's - Revised MOTORS AND CONTROLS TESTER shunt DC planning - Can be DC'd [...] Hemorrhoids Hydrocephalus, adult (HCC) Kidney stone Neuropathy MOTORS AND CONTROLS TESTER (ventriculoperitoneal) shunt status Medications: sodium chloride warfarin [...] of Hospitalist Medicine Inpatient Medical Services PAGER: [phone] Nutrition rescreen completed. Pt referred to RD for foot ulcers. Occupational Therapy Facility/Department: [facility] Occupational Therapy Initial Assessment Name: Andrew Sifuentes : 1950 Date of Service: 10/23/2021 OT eval and treat orders received. Chart reviewed. Per notes pt from [facility], is Boaz lift at baseline, non-ambulatory, and requires assist for all ADLs. Will d/c OT orders. Elizabeth Gutierrez OT Physical Therapy Facility/Department: [facility] Physical Therapy Initial Assessment Name: Andrew Sifuentes : 1950 Date of Service: 10/23/2021 PT eval and treat orders received. Chart reviewed. Per notes pt from [facility], is Boaz lift at baseline, non-ambulatory. Will d/c PT orders. Lloyd Silva PT [facility] Anticoagulation Management Service ([facility]) Inpatient Warfarin Consult HPI: Andrew Sifuentes is a 71 y.o. 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 Past Medical History: Diagnosis Date ED (erectile dysfunction) Hemorrhoids Hydrocephalus, adult (HCC) Kidney stone Neuropathy MOTORS AND CONTROLS TESTER (ventriculoperitoneal) shunt status Patient is newly referred to the [facility] clinic for warfarin management. Pt was referred [...] drug interactions and adjust dose accordingly. 3. [facility] will manage while inpatient and sign off at discharge. Patient resides in a SNF. 4. Will provide warfarin education including [facility] warfarin booklet, if appropriate. Thank you for this consult Lisa Forrest RPH, PharmD [facility] Consult Service is available daily [phone]. Please search for covering pharmacist name via Sensbeat or Groups --> Pharmacy --> Anti-Coagulation Consult Pharmacist (on 3rd page). If no response via Sensbeat, please page [phone]. Department of Podiatry Attending Consult Note Reason for Consult: Wound care Requesting Physician: MD Shailesh CHIEF COMPLAINT: Foot wounds HISTORY OF PRESENT ILLNESS: The patient is a 71 y.o. male with b/l foot wounds. Patient is awake , but not answering questions. Past Medical History: Diagnosis Date ED (erectile dysfunction) Hemorrhoids Hydrocephalus, adult (HCC) Kidney stone Neuropathy MOTORS AND CONTROLS TESTER (ventriculoperitoneal) shunt status Past Surgical History: Procedure [...] OT consulted. Will follow . Thank you. [facility] Respiratory Care Department Progress Note As [...] included. Hospitalist Progress Note 10/22/2021 6:33 AM [phone]: Please page me ([phone]) or perfect serve me for patient care issues. [phone]: Please page IMS night Hospitalist for any [...] consider MRI if concern Hydrocephalus - Revised MOTORS AND CONTROLS TESTER shunt Interval History: No overnight issues. Denies [...] no cyanosis or edema and unable to varnish remover BLE, this is old Musculoskeletal: Muscle [...] Hemorrhoids Hydrocephalus, adult (HCC) Kidney stone Neuropathy MOTORS AND CONTROLS TESTER (ventriculoperitoneal) shunt status Medications: sodium chloride baclofen [...] of Hospitalist Medicine Inpatient Medical Services PAGER: [phone] Images from the original note were not included. Hospitalist Progress Note 10/21/2021 5:31 PM [phone]: Please page me ([phone]) or perfect serve me for patient care issues. [phone]: Please page IMS night Hospitalist for any [...] Will need chronic OAC Hydrocephalus - Revised MOTORS AND CONTROLS TESTER shunt Interval History: No overnight issues. Denies [...] Hemorrhoids Hydrocephalus, adult (HCC) Kidney stone Neuropathy MOTORS AND CONTROLS TESTER (ventriculoperitoneal) shunt status Medications: sodium chloride baclofen [...] the last 72 hours. PT/INR: Recent Labs 06/17/22 0210 PROTIME 11.5 INR 1.1 CARDIAC ENZYMES: [...] of Hospitalist Medicine Inpatient Medical Services PAGER: [phone] Family member Triny, sister to patient, called back to the hospital stating that she was returning a call from a provider. Her phone number is [phone] to speak with whomever was attempting to reach out to her. documented in this encounter [employer] Phone: 10-17-2021 Miscellaneous Notes Mr. Sifuentes missed his hospital stay follow-up appointment w. Dr. Lim today. Called to Reschedule. Could not get through. "Subscriber you have dialed not in service" - was the automated voice mail. Unable to leave . No other phone# available. Ramya Negro Import/Export Agent [facility] documented in this encounter [facility] 08-19-2021 Note [facility] 08-19-2021 Note [facility] 08-18-2021 Note [facility] 08-18-2021 Note [facility] 08-17-2021 Note [facility] 08-17-2021 Note [facility] 08-16-2021 Note [facility] 08-16-2021 Note HNO ID: [id number] Author: Katt Kelsey DO Service: Hospital Medicine Author Type: Physician Type: Plan of Care Filed: 08/16/2021 12:26 PM Note Text: Spoke with RN that line is a PICC. Katt Kelsey DO 08/16/2021 12:26 PM [facility] 08-16-2021 Note [facility] 08-16-2021 Note [facility] 08-15-2021 Note [facility] 08-15-2021 Note [facility] 08-15-2021 Note [facility] 08-14-2021 Note [facility] 08-14-2021 Note [facility] 08-13-2021 Note [facility] 08-13-2021 Note [facility] 08-13-2021 Note [facility] 08-13-2021 Note HNO ID: [id number] Author: Interface Note Service: ? Author Type: ? Type: Progress Notes Filed: 08/13/2021 3:10 AM Note Text: Epic Scheduled Downtime: 08/13/2021 1:08:47 AM to 08/13/2021 2:53:47 AM [facility] 08-12-2021 Note [facility] 08-12-2021 Note [facility] 08-12-2021 Note [facility] 08-11-2021 Note [facility] 08-11-2021 Note [facility] 08-11-2021 Note [facility] 08-11-2021 Note [facility] 08-11-2021 Note [facility] 08-11-2021 Note [facility] 08-10-2021 Note [facility] 08-10-2021 Note [facility] 08-10-2021 Note [facility] 08-10-2021 Note [facility] 08-09-2021 Note HNO ID: [id number] Author: Shannon Brooks RN Service: ? Author Type: Registered Nurse Type: Nursing Progress Note Filed: 08/09/2021 7:33 PM Note Text: Report called to unit [facility] 08-09-2021 Note [facility] 08-09-2021 [facility] 08-09-2021 Note [facility] 08-08-2021 Note [facility] 08[facility]08-2021 Note [facility] 08-08-2021 Note [facility] 08-07-2021 Note [facility] 08-07-2021 Note [facility] 08[facility]07-2021 Note [facility] 08-07-2021 Note [facility] 08-07-2021 Note [facility] 08-06-2021 Note [facility] 08[facility]06-2021 Note [facility] 08-06-2021 Note [facility] 08-05-2021 Note [facility] 08-05-2021 Note [facility] 08-05-2021 Note [facility] 08-04-2021 Note [facility] 08-04-2021 Note [facility] 08[facility]04-2021 Note [facility] 08-03-2021 Note [facility] 08-03-2021 Note [facility] 08-03-2021 Note [facility] 08-02-2021 Note [facility] 08-02-2021 Note [facility] 08-02-2021 Note [facility] 08-01-2021 Note [facility] 08[facility]01-2021 Note [facility] 08[facility]01-2021 Note [facility] 08-01-2021 Note [facility] 07-31-2021 Note [facility] 07-31-2021 Note [facility] 07-30-2021 Note [facility] 07-30-2021 Note [facility] 07-30-2021 Note [facility] 07-29-2021 Note [facility] 07[facility]29-2021 Note [facility] 07-29-2021 Note [facility] 07-28-2021 Note [facility] 07-28-2021 Note [facility] 07[facility]28-2021 Note [facility] 07-27-2021 Note [facility] 07[facility]27-2021 Note [facility] 07[facility]27-2021 Note [facility] 07-26-2021 Note [facility] 07[facility]26-2021 Note [facility] 07-26-2021 Note [facility] 07-26-2021 Note [facility] 07-26-2021 Note [facility] 07-25-2021 Note [facility] 07-25-2021 Note [facility] 07[facility]25-2021 Note [facility] 07-25-2021 Note [facility] 07-24-2021 Note [facility] 07-24-2021 Note [facility] 07-24-2021 Note [facility] 07-23-2021 Note [facility] 07-23-2021 Note [facility] 07-23-2021 Note [facility] 07[facility]23-2021 Note [facility] 07-23-2021 Note [facility] 07-22-2021 Note [facility] 07[facility]22-2021 Note [facility] 07-22-2021 Note [facility] 07-21-2021 Note [facility] 07-21-2021 Note [facility] 07-21-2021 Note [facility] 07-21-2021 History of [...] history of fever, elevated WBC, RP hematoma MOTORS AND CONTROLS TESTER shunt tip grew anaerobic gram positive cocci 06/08/2021 PLAN: MOTORS AND CONTROLS TESTER shunt tip sent to [facility] main, awaiting cx [...] - following CSF studies; 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 for CAR DROPPER infection at this time - ID following- Continue antibiotics: Meropenem -CSF leak from EVD site, appreciate NSGY recs> stat repeat CTH on 06/07 d/t concern for CSF leak, cephalematoma, CTH unremarkable -Tolerating TF - SBT WTE - PICC line placed documented as of this encounter (statuses as of 10/17/2021) [facility]03-17-2022 [facility]03-16-2022 [facility]03-16-2022 [facility]03-16-2022 Note [facility]03-16-2022 [facility] 07-19-2021 [facility]03-15-2022 [facility]03-15-2022 [facility]03-14-2022 [facility]03-14-2022 [facility]03-13-2022 [facility]03-13-2022 [facility]03-12-2022 Note [facility]03-12-2022 [facility] 07-15-2021 [facility]03-11-2022 [facility]03-10-2022 [facility]03-10-2022 [facility]03[facility]10-2022 [facility]03-09-2022 [facility]03-09-2022 [facility]03-09-2022 Note [facility]03-09-2022 [facility] 07-12-2021 [facility]03-08-2022 [facility]03-07-2022 [facility]03-07-2022 [facility]03-07-2022 [facility]03-07-2022 [facility]03-06-2022 [facility]03-06-2022 Note [facility]03-05-2022 [facility] 07-09-2021 [facility]03-05-2022 NoteHNO ID: [id number] Author: Lizette Valderrama RN Service: Nursing Author Type: Registered Nurse Type: Nursing Progress Note Filed: 07/09/2021 1:41 AM Note Text: [facility] NoteHNO ID: [id number] Author: Lizette Valderrama RN Service: Nursing Author Type: Registered Nurse Type: Nursing Progress Note Filed: 07/08/2021 8:57 PM Note Text: [address] 2049 back to PACU [facility]03-04-2022 NoteHNO ID: [id number] Author: Sukhi Chery APRN.CNP Service: ? Author Type: Nurse Practitioner Type: Progress Notes Filed: 07/09/2021 6:46 PM Note Text: Connected Care Unit Progress Note Patient Name: Andrew Sifuentes Patient Facility: [facility] Admit Date 06/28/2021 Level of Care: Skilled [...] Dept Phone 07/21/2021 11:00 AM NICOLE LIM [phone] HPI: (Per Dr. Beltran) Andrew Sifuentes is being seen today for shelter facility (SNF) admission AND management of weakness, tube feed, infected retroperitoneal infection and seizure. ? This is a 71 year old male who presents from [facility] with primary admitting diagnosis of [...] CT brain concerning for hydrocephalus. Tip of MOTORS AND CONTROLS TESTER shunt was found to be in the [...] slow to respond. Ordered to transfer to [facility] ED for evaluation of neurological and pulmonary [...] changes in co (more content not included)... [facility]03-04-2022 [facility]03-04-2022 [facility]03-02-2022 NoteHNO ID: [id number] Author: Sukhi Chery APRN.VICTORIANO Service: ? Author Type: Nurse Practitioner Type: Progress Notes Filed: 07/09/2021 6:20 PM Note Text: Connected Care Unit Progress Note Patient Name: Andrew Sifuentes Patient Facility: [facility] Admit Date 06/28/2021 Level of Care: Skilled [...] Dept Phone 07/21/2021 11:00 AM NICOLE LIM [phone] HPI: (Per Dr. Beltran) Andrew Sifuentes is being seen today for shelter facility (SNF) admission AND management of weakness, tube feed, infected retroperitoneal infection and seizure. ? This is a 71 year old male who presents from [facility] with primary admitting diagnosis of [...] CT brain concerning for hydrocephalus. Tip of MOTORS AND CONTROLS TESTER shunt was found to be in the [...] Pharynx: Oropharynx is clear. (more content not included)...[facility]02-28-2022 NoteHNO ID: [id number] Author: Sukhi Chery APRN.VICTORIANO Service: ? Author Type: Nurse Practitioner Type: Progress Notes Filed: 07/09/2021 6:07 PM Note Text: Connected Care Unit Progress Note Patient Name: Andrew Sifuentes Patient Facility: [facility] Admit Date 06/28/2021 Level of Care: Skilled [...] but nursing notes it was drawn by section supervisor as vancomycin was being infused; reordered trough - PICC Line Intact - No fevers or chills per patient or staff (R53.81) Debility - Certify therapies - Maintain high falls risk precautions - pt/staff verbalize understanding validated via teach back - Monitor safety awareness Appointments for Next 60 Days Date Time Provider Location Dept Phone 07/21/2021 11:00 AM CHANDLERNICOLE [phone] HPI: (Per Dr. Beltran) Andrew Sifuentes is being seen today for shelter facility (SNF) admission AND management of weakness, tube feed, infected retroperitoneal infection and seizure. ? This is a 71 year old male who presents from [facility] with primary admitting diagnosis of [...] CT brain concerning for hydrocephalus. Tip of MOTORS AND CONTROLS TESTER shunt was found to be in the [...] to facility records. OBJECTIVE: Labs/diagnostics: 07/04/2021 Glucose=91 Yy=902 K=3.8 Mi=568 CO2=24 BUN=14 Creatinine=0.5 GNN=525 Ca=9.0 Protein,Total=6.7 Albumin=3.6 KneZxyc=873 AST=15 ALT=21 Bilirubin,Totall=0.5 WBC=10.7 RBC=4.04 Hgb=10.9 Hct=35.3 Aqrymzmb=647 VancomycinTr (more content not included)...[facility]02-24-2022 NoteHNO ID: [id number] Author: Sukhi Chery APRN.CNP Service: ? Author Type: Nurse Practitioner Type: Progress Notes Filed: 07/09/2021 5:43 PM Note Text: Connected Care Unit Progress Note Patient Name: Andrew Sifuentes Patient Facility: [facility] Admit Date 06/28/2021 Level of Care: Skilled [...] Dept Phone 07/21/2021 11:00 AM NICOLE LIM [phone] HPI: (Per Dr. Beltran) Andrew Sifuentes is being seen today for shelter facility (SNF) admission AND management of weakness, tube feed, infected retroperitoneal infection and seizure. ? This is a 71 year old male who presents from [facility] with primary admitting diagnosis of [...] CT brain concerning for hydrocephalus. Tip of MOTORS AND CONTROLS TESTER shunt was found to be in the [...] uncontrolled pain exacerbations. Medications: Medications listed in [place] during SNF admission may not be current. Refer to facility record. Patient records, current medications, most recent labs, family/social history (unchanged) Reviewed. Refer to facility records. OBJECTIVE: Labs/diagnostics: 07/01/2021 Glucose=83 Mj=511 K=4.1 Uj=226 CO2=27 BUN=22 Creatinine=0.6 ZCH=456 Ca=8.7 WBC=10.8 RBC=3.40 Hgb=9.3 Hct=29.9 Mvmuwqmb=460 Vital Signs: BP 128/80 Pulse 77 Temp 36.7 ?C (98 ?F) Resp 20 Ht 182.9 cm (6') Wt 113 kg (249 lb 3.2 oz) SpO2 96% BMI 33.80 kg/m? Physical Exam: Physical Exam Vitals reviewed. Constitutional: General: He is not in acute distress. (more content not included)...[facility]02-22-2022 [facility]02-22-2022 [facility]02-21-2022 [facility]02-21-2022 Note [facility]02-20-2022 [facility] 06-26-2021 [facility]02-19-2022 [facility]02-19-2022 [facility]02-18-2022 [facility]02-18-2022 [facility]02-18-2022 [facility]02-17-2022 [facility]02-17-2022 Note [facility]02-17-2022 [facility] 06-22-2021 NoteO ID: [id number] Author: Xiomy England RN Service: Nursing Author Type: Registered Nurse Type: Nursing Progress Note Filed: 06/22/2021 7:22 PM Note Text: RT contacted as pt has wheezing auscultated and same auditory. For prn Treatment.[facility]02-16-2022 [facility]02-16-2022 [facility]02-16-2022 [facility]02-16-2022 [facility]02[facility]16-2022 [facility]02-15-2022 [facility]02-15-2022 Note [facility]02-15-2022 [facility] 06-21-2021 [facility]02-14-2022 [facility]02-14-2022 [facility]02-14-2022 [facility]02-14-2022 [facility]02[facility]14-2022 [facility]02-13-2022 [facility]02-13-2022 Note [facility]02-13-2022 [facility] 06-19-2021 [facility]02-13-2022 [facility]02-12-2022 [facility]02-12-2022 [facility]02-12-2022 [facility]02-12-2022 [facility]02-12-2022 [facility]02-12-2022 Note [facility]02-12-2022 NoteHNO ID: [id number] Author: Interface Note Service: ? Author Type: ? Type: Progress Notes Filed: 06/18/2021 3:10 AM Note Text: Epic Scheduled Downtime: 06/18/2021 1:00:00 AM to 06/18/2021 2:27:00 [facility]02-11-2022 [facility]02-11-2022 Note [facility]02-11-2022 [facility] 06-17-2021 [facility]02-11-2022 [facility]02-11-2022 [facility]02-10-2022 [facility]02-10-2022 [facility]02-10-2022 [facility]02[facility]10-2022 [facility]02-10-2022 Note [facility]02-10-2022 [facility] 06-15-2021 [facility]02-09-2022 NoteHNO ID: [id number] Author: Lamonte Kline DO Service: Neurology ICU Author Type: Resident Type: Plan of Care Filed: 06/15/2021 6:21 PM Note Text: Patient's daughter Melissa updated on plan of care and critical condition, all questions answered.[facility]02-09-2022 [facility]02-09-2022 [facility]02-09-2022 [facility]02-09-2022 [facility]02-09-2022 Note [facility]02-09-2022 [facility] 06-15-2021 [facility]02-08-2022 [facility]02-08-2022 [facility]02-08-2022 [facility]02-08-2022 [facility]02-07-2022 [facility]02-07-2022 [facility]02-07-2022 Note [facility]02-07-2022 [facility] 06-12-2021 [facility]02-06-2022 [facility]02-06-2022 [facility]02-05-2022 [facility]02-05-2022 [facility]02-04-2022 [facility]02[facility]04-2022 [facility]02-04-2022 Note [facility]02-04-2022 [facility] 06-09-2021 [facility]02-03-2022 [facility]02-03-2022 [facility]02-03-2022 [facility]02-02-2022 [facility]02-02-2022 NoteHNO ID: [id number] Author: Luis Diaz RN Service: ? Author Type: Registered Nurse Type: Nursing Progress Note Filed: 06/08/2021 9:23 AM Note Text: Patient off the floor to OR at this time.[facility]02-02-2022 [facility]02-02-2022 [facility] 06-08-2021 NoteHNO ID: [id number] Author: Eloise Samuel RN Service: ? Author Type: Registered Nurse Type: Nursing Progress Note Filed: 06/08/2021 12:46 AM Note Text: Dr. Brito notified of changes throughout shift. No [facility] 06-07-2021 NoteHNO ID: [id number] Author: Eloise Samuel RN Service: ? Author Type: Registered Nurse Type: Nursing Progress Note Filed: 06/07/2021 8:01 PM Note Text: Neuro surg DENTAL EQUIPMENT INSTALLER AND SERVICER notified of downward deviation of pupils. No new orders at this time.[facility]02-01-2022 [facility]02-01-2022 [facility]02-01-2022 [facility]02-01-2022 [facility]01-31-2022 [facility]01-31-2022 [facility]01-31-2022 Note [facility]01-31-2022 [facility] 06-05-2021 [facility]01-30-2022 [facility]01-30-2022 [facility]01-29-2022 [facility]01-29-2022 NoteHNO ID: [id number] Author: Jermaine Miller PA-C Service: Neurosurgery Author Type: Physician Advisory Intern Type: Plan of Care Filed: 06/04/2021 1:59 PM Note Text: Discussed with Dr. Charles CT brain results. At this time, [facility]29-[facility]22 [facility] 06-04-2021 [facility]01-28-2022 [facility]01-28-2022 NoteHNO ID: [id number] Author: Mauricio Frank DO Service: Neurology ICU Author Type: Physician Type: Plan of Care Filed: 06/03/2021 2:38 PM Note Text: I spoke with Melissa and updated her over the phone. [facility], [facility]01-28-2022 [facility]01-28-2022 [facility]01-27-2022 [facility]01-27-2022 [facility]01-27-2022 Note [facility]01-26-2022 [facility] 06-01-2021 [facility]01-26-2022 [facility]01-26-2022 [facility]01-26-2022 [facility]01-25-2022 [facility]01-25-2022 [facility]01-25-2022 [facility]01-25-2022 Note [facility]01-25-2022 [facility] [...] Evaluation noteNo assessment information available [facility] Work Phone: Evaluation note* Diagnosis [...] tract symptoms (LUTS) [facility] Diagnosis Left flank pain Abdominal pain, unspecified site Calculus of ureter [facility]* Diagnosis Left flank pain- Primary Abdominal pain, unspecified site BPH with urinary obstruction Hypertrophy of prostate with urinary obstruction and other lower urinary tract symptoms (LUTS) History of kidney stones [facility] Name Dates Details Instructions not documented [facility]taiod[facility]Lkx[facility] Work Phone: Instructions* Name Dates Details Instructions not documented [facility]-Nttsuwdexw-Pxndwt [address] [place] Work Phone: Reason for referral (narrative)No reason for referral information availableWAshtabula General [facility] Work Phone: Advance Directives No Advanced Directives Records FoundDocuments on File Type Date Recorded Patient Range Feeder Expl anation Advance Directives and Living Will Power of Scale And Skip Car Operator Documents on File Type Date Recorded Patient Range Feeder Expl anation Advance Directive(s) 06/02/2021 2:45 PM [...] Maker Relationship: 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 Adult 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) Documents on File Type Date Recorded Patient Range Feeder Expl anation ACP-Advance Directive ACP-Power of Scale And Skip Car Operator Latest Code Status on File Code Status Date Activated Date Inactivated Comments Full Code 10/21/2021 4:09 AM Healthcare Agents on File Name Relationship Healthcare Agent Relationshi p Communication Melissa Gurpreet Child Primary Decision Maker deann Gurpreet Child Secondary Decision Maker Documents on File Type Date Recorded Patient Range Feeder Expl anation ACP-Advance Directive ACP-Power of Scale And Skip Car Operator ACP-Do Not Resuscitate 11/01/2021 7:03 AM Latest Code Status on File Code Status Date Activated Date Inactivated Comments Full Code 10/21/2021 4:09 AM 10/29/2021 7:25 PM Healthcare Agents on File Name Relationship Healthcare Agent Relationshi p Communication Melissakb Dengyer Child Primary Decision Maker deann Dengyer Child Secondary Decision Maker Documents on File Type Date Recorded Patient Range Feeder Expl anation ACP-Do Not Resuscitate 11/03/2021 10:15 AM ACP-Do Not Resuscitate 11/01/2021 7:03 AM Healthcare Agents on File Name Relationship Healthcare Agent Relationshi p Communication Melissakb Dengyer Child Primary Decision Maker deann Dengyer Child Secondary Decision Maker Documents on File Type Date Recorded Patient Range Feeder Expl anation ACP-Do Not Resuscitate 11/03/2021 10:15 [...] Documents on File Type Date Recorded Patient Range Feeder Expl anation DNR (Do Not Resuscitate) 10/31/2021 DNR (Do Not Resuscitate) 10/21/2021 Documents on File Type Date Recorded Patient Range Feeder Expl anation DNR (Do Not Resuscitate) 10/31/2021 [...] 4 5:00am [facility] March 18 4 5:00am [facility] March 19 4 4:00am [facility] March 20 4 5:00am [facility] March 24 4 5:00am [facility] March 27 4 [...] Complaint Admit Date [facility] June 19 5:00am LABWORK [...] Chief Complaint Admit Date [facility] October 09, 2024 5:0 0am LABWORK October 13, 2024 5:00a m [facility] October 16, 2024 5: 00am [facility] October 20, 2024 4: 00am [facility] October 23, 2024 5: 00am [facility] October 27, 2024 4: 00am [facility] October 30, 2024 6: 35am LABWORK November 03, 2024 5:00 am [facility] November 06, 2024 4:0 0am [facility] November 10, 2024 4:0 0am [facility] November 13, 2024 5: 00am [facility] November 17, 2024 5: 00am [facility] November 20, 2024 5: 00am [facility] November 24, 2024 5: 00am [facility] November 27, 2024 5: 00am LABWORK November 28, 2024 5:00 am LABWORK December 01, 2024 5:00 am [facility] December 02, 2024 4: 00am [facility] December 04, 2024 5: 00am [facility] December 08, 2024 5 :00am LABWORK December 11, 2024 6:0 0am [facility] December 15, 2024 4:00am [facility] December 18, 2024 5:00am [facility] December 22, 2024 4:00am LABWORK December 24, 2024 5: 00am [facility] December 25, 2024 5:00am [facility] December 26, 2024 5:00am LABWORK December 29, 2024 5: 00am [facility] January 01, 2025 5:00am [facility] January 06 5:00am LABWORK January 08, 2025 5:00am [facility] WORK Thuy 8[address], 202 5 4:00am [facility] January 15 5:00am LABWORK January 19, 2025 5:00am [facility] January 26 4:00am Chief Complaint Admit Date LABWORK November 03, 2024 5:00 am [facility] November 06, 2024 4:0 0am [facility] November 10, 2024 4:0 0am [facility] November 13, 2024 5: 00am [facility] November 17, 2024 5: 00am [facility] November 20, 2024 5: 00am [facility] WORK November 24, 2024 5: 00am [facility] WORK November 27, 2024 5: 00am LABWORK November 28, 2024 5:00 am LABWORK December 01, 2024 5:00 am [facility] December 02, 2024 4: 00am [facility] WORK December 04, 2024 5: 00am [facility] December 08, 2024 5 :00am LABWORK December 11, 2024 6:0 0am [facility] December 15, 2024 4:00am [facility] WORK December 18, 2024 5:00am [facility] WORK December 22, 2024 4:00am LABWORK December 24, 2024 5: 00am [facility] WORK December 25, 2024 5:00am [facility] WORK December 26, 2024 5:00am LABWORK December 29, 2024 5: 00am [facility] WORK January 01, 2025 5:00am [facility] WORK January 06 5:00am LABWORK January 08, 2025 5:00am [facility] WORK January 12 4:00am [facility] WORK January 15 5:00am LABWORK January 19, 2025 5:00am [facility] WORK January 22 5:00am [facility] WORK January 26 4:00am [facility] WORK January 29 7:30am [facility] WORK February 02 4:00am [facility] February 05, 2025 5:00am [facility] February 16, 2025 4:00am Reason for Referral Specialty Diagnoses / Procedures Referred By Contdesiree t Referred To Contact Urology Diagnoses Other fatigue Lanette Munguia DO [address] [place] [address] [facility] [place] [address] [place] [address] Referral ID Status Reason Start Date Expiration Date V isits Requested Visits Authorized [id number] Open Specialty Services Required 11/01/2021 11/01/2022 1 1 Scheduling Instructions [facility] [address] [facility] , [address] [place], [place] [address] Specialty Diagnoses / Procedures Referred By Aki t Referred To Contact IP Unit Diagnoses Heel ulceration, left, with unspecified severity (HCC) Henry Hidalgo PA [address] [place] [address] [facility] [address] [place] [id number] Referral ID Status Reason Start Date Expiration Date V isits Requested Visits Authorized [id number] Open Specialty Services Required 12/22/2021 12/22/2022 1 1 Scheduling Instructions [facility] [address] [place] [phone] Comments Please use the parking lot located on [facility] or [employer]. There are handicap parking spots located in a small lot beside the wound care entrance off of [facility]. Please be advised there is a small incline from those handicap spots to our main door. Bring photo ID and insurance card to photocopy. Wear loose fitting clothing (to easily access wound). Bring list of medications (or can be sent by office). Check in at Registration for your first visit. Please call us directly with any questions [phone]. We look forward to helping you heal. Specialty Diagnoses / Procedures Referred By Aki kumari Referred To Contact Radiology Diagnoses Left flank pain Calculus of ureter Procedures CT abdomen pelvis wo IV contrast Rebecca Buck MD [address] [place] [address] Referral ID Status Reason Start Date Expiration Date V isits Requested Visits Authorized [id number] Pending Review 08/13/2023 08/12/2024 1 1 Referral ID Status Reason Start Date Expiration Date Visits Re quested Visits Authorized [id number] Closed 08/17/2023 09/16/2023 1 1 Additional Source Comments Source Comments (unrecognize d section and content) In the event this informatio n is protected by the Federal Confidentiality of Alcohol and Drug Abuse Patient Records regulations: The Federal rules restrict any use of the information to criminally investigate or prosecute any alcohol or drug abuse patient.[facility] the event this information is protected by the Federal Confidentiality of Alcohol and Drug Abuse Patient Records regulations: The Federal rules restrict any use of the information to criminally investigate or prosecute any alcohol or drug abuse patient.[facility] (unrecognized sect ion and content) No Status Records FoundNo Status Records FoundNo Status Records FoundNo Status Records FoundNo Status Records FoundNo Status Records FoundNo Status Records FoundNo Status Records FoundNo Status Records FoundNo Status Records Found INFORMATION SOURCE (unrecogn ized section and content) DATE CREATED AUTHOR 05/20/2021 [facility] DATE CREATED AUTHOR AUTHOR'S ORGANIZ ATION 06/07/2021 [facility] DATE CREATED AUTHOR AUTHOR'S ORGANIZ ATION 08/02/2021 [facility] DATE CREATED AUTHOR AUTHOR'S ORGANIZ ATION 12/09/2021 [facility] DATE CREATED AUTHOR AUTHOR'S ORGANIZ ATION 12/29/2021 [employer] DATE CREATED AUTHOR AUTHOR'S ORGANIZ ATION 02/04/2022 [facility] DATE CREATED AUTHOR AUTHOR'S ORGANIZ ATION 03/03/2022 [facility] DATE CREATED AUTHOR AUTHOR'S ORGANIZ ATION 09/15/2023 [facility] DATE CREATED AUTHOR AUTHOR'S ORGANIZ ATION 03/09/2025 [facility] Reason for Visit (unrecogniz ed section and content) Reason Comments Missed Appointment Reason Comments Leg Swelling Blood clots Reason Comments Altered Mental Status Pt presents to ED via [facility] for complaint listed. Pt is from [facility]. Pt's LKW was 1000 hours today. Per EMS, pt had a - [place]. Pt denies CP, SOB, and N/V. Pt seems slow to respond, slightly confused at this time. Reason Comments Osteomyelitis Patient from [facility], facility did xrays on left [...] Buck MD [address] [place] [address] Referral ID Status Reason Start Date Expiration Date Visits Re quested Visits Authorized [id number] Closed 08/17/2023 09/16/2023 1 1 Reason Comments [...] Status Dates Carlos NOVAK Attending Provider Active [employer] Relationship Specialty Start Date End Date Mateus Burris [address] [place] [address] PCP - General Family Practice 11/12/19 [employer] Relationship Specialty [place] [address] [place] [address] PCP - General Family Medicine 09/09/20 [employer] Relationship Specialty [place] [address] [place] [address] PCP - General Family Medicine 09/09/20 [employer] Relationship Specialty [place] [address] [place] [address] PCP - General Family Medicine 09/09/20 [employer] Relationship Specialty Start Date End Date Carlos Cavazos MD [address] [facility] [address] [place] [address] PCP - General Internal Medicine 02/20/22 Team [...] Monika Staley MD Primary Care Provider Active [employer] Relationship Specialty Start Date End Date Carlos Cavazos [address] [place] [phone] PCP - General 12/21/21 Rebecca Buck MD [address] [address] Surgeon Urology 06/25/23 Team Status: Inactive Member [...] NOVAK Attending Provider, Referring Provi lupillo Active [employer] Relationship Specialty Start Date End Date Carlos Cavazos [address] [place] [phone] PCP - General 12/21/21 Rebecca Buck MD [address] [address] Surgeon Urology 06/25/23 [employer] Relationship Specialty Start Date End Date Carlos Cavazos [address] [place] [phone] PCP - General 12/21/21 Rebecca Buck MD [address] [address] Surgeon Urology 06/25/23 [employer] Relationship Specialty Start Date End Date MaribelCarlos meredith [address] [place] [phone] PCP - General 12/21/21 Rebecca Buck MD [address] [address] Surgeon Urology 06/25/23 [employer] Relationship Specialty Start Date End Date Carlos Cavazos [address] [place] [phone] PCP - General 12/21/21 Rebecca Buck MD [address] [address] Surgeon Urology 06/25/23 [employer] Relationship Specialty Start Date End Date Carlos Cavazos [address] [place] [phone] PCP - General 12/21/21 Rebecca Buck MD [address] [address] Surgeon Urology 06/25/23 [employer] Relationship Specialty Start Date End Date Carlos Cavazos [address] [place] [phone] PCP - General 12/21/21 Rebecca Buck MD [address] [address] Surgeon Urology 06/25/23 Team Status: Inactive Member Role Status Dates Dr. Monika Staley MD Primary Care Provider Active Start: March 13, 2024 End: March 13, 2024 [facility] Attending Provider Active Start: March 13, 2024 [...] March 17, 2024 End: March 17, 2024 [facility] Attending Provider Active Start: March 17, 2024 End: March 17, 2024 Team Status: Inactive Member Role Status Dates Dr. Monika Staley MD Primary Care Provider Active Start: March 18, 2024 End: March 18, 2024 [facility] Attending Provider Active Start: March 18, 2024 [...] March 20, 2024 End: March 20, 2024 [facility] Attending Provider Active Start: March 20, 2024 [...] March 27, 2024 End: March 27, 2024 [facility] Attending Provider Active Start: March 27, 2024 [...] Care Provider Active Start: July 07, 2024 [facility] Attending Provider Active Start: July 07, 2024 [...] Provider: Lisa Ashby RN)[phone] (Stopped - Provider: Lisa Ashby [...] Provid er: Isaura Cabrales RN - Comment: MIKE)414 (Due)121 (Due)2014 (Due) tamsulosin (FLOMAX) capsule 0.4 mg 0.4 mg, Oral, DAILY, First dose on Sun11/01/21 at 0900, Until Discontinued, Do not crush or break. 0900 (Due) Linked Groups Order Group 1: Saline lock IV (COMPLETED) Routine, CONTINUOUS, Starting on 10/31/21 at 2014, Until Specified And sodium chloride [...] PRIMARY CLINICAL RECORDS. [facility]. provides no warranty or guarantee of the accuracy or completeness of information in this document.
[2025-03-11 08:21] LABS: Prothrombin Time (Protime)PT. 20.5 SECONDS (11.7-14.9)
== END ==
LOC: OLS.SANC 05:00
PROVIDERS: PCP General Practice; Visit Provider Internal Medicine
DX: Z79.01 Long term (current) use of 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 (principal)
CPT/HCPCS: 36415; 85610

== ENCOUNTER → 2025-03-12 | Outpatient (REF) | payer MEDICARE, MEDICAID, SELFPAY ==
--- OUTSIDE RECORDS SUMMARY | 2025-03-12 04:40 | XMS RPT_ITS | CCD ---
Author Organization [facility] Care Team Providers Care Rn Plastic Surgery Name Role Phone Mateus Burris Primary Care Provider [phone] Monika Staley Unavailable Unavailable Leonor, Maddy L [...] Unavailable Mateus Burris Primary Care Provider [phone] Monika Staley MD Primary Care Provider [phone] Monika Staley MD Primary Care Provider [phone] Carlos Cavazos Primary Care Unavailable Carlos Cavazos [...] VALLADARES, Dr. Monika Horner Primary Care Provider [facility] Attending Provider [phone] Carlos Nelson Attending Provider Jonh Pascual MD, [...] MD, Dr. Calderon Referring Provider Unava ilable Carols Nelson Attending Provider Jonh Cardoza MD, Dr. [...] Monika Horner Primary Care Physician Sara VALLADARES, Karon Attending Physician Unav Carlos Fontaine Attending Physician [...] Luís, Shiela Primary Care Unavailable [facility] Attending Tricia denise Ulís, Shiela Primary Care Unavailable Crisostomo OLSKvng Attending [...] Luís, Shiela Primary Care Unavailable [facility] Attending Unaalexandra denise Crisostomo OLS, Kvng Referring Unavailable Luís, Shiela Primary Care Unavailable Crisostomo OLS, Vicentebaljeet Attending Unavailable Luís, Shiela Primary Care Unavailable Crisostomo OLS, Vicentebaljeet Attending Unavailable Luís, Shiela Primary Care Unavailable [facility] Attending Unavai lable Luís, Shiela Primary Care Unavailable Katsaros OLS, Carlos Attending Unavailable Luís, Shiela Primary Care Unavailable [facility] Attending Unavai lable Luís, Shiela Primary Care [...] Luís, Shiela Primary Care Unavailable [facility] Attending Tricia bustamantele Luís, Shiela Primary Care [...] Luís, Shiela Primary Care Unavailable [facility] Attending Tricia bustamantele Luís, Shiela Primary Care [...] Mukkamalla OLS, Mahaveer Referring Unavail able Luís, [facility] Primary Care Unavailable Mukkamalla OLS, Mahaveer Attending Unavail able Allergies Allergy Classification Reported Allergen(s) Allergy Type Date of Onset Reaction(s) Facility (13 sources) Morphine Drug Allergy 5 [facility] Work Phone: (15 sources) Alcohol Propensity to adverse reactions to drug 3 Rash, Hives, Other: See Comments, Other [facility] Work Phone: (1 source) Latex Drug Allergy [address] [facility] (8 sources) Cortisone Drug Allergy 2 [facility] (7 sources) Latex Allergy to substance 0 Rash [facility] Medications Current Medications Medication Drug Class(es) Dates Sig (Normalized) Sig (Original) Acetaminophen (10 sources) Start: 10-21-2021 acetaminophen (TYLENOL) tablet 650 mg Start: 09-14-2021 acetaminophen (TYLENOL) 325 MG tablet 650 mg every 6 hours as needed 0 09/14/2021 Active take 2 tablets by [facility] every eight hours acetaminophen (TYLENOL) 325 mg [...] Elastic Bandages & Supports (MEDICAL COMPRESSION STOCKINGS) [facility] (6 sources) Start: 9 Elastic Bandages & [...] Start: 11-01-2021 take 1 capsule by mo [facility] once daily tamsulosin (FLOMAX) 0.4 MG [...] on above: Take 1 capsule by mo [facility] three times daily. Complete Multi-Vitamin CHEW [...] Comment on above: Take 1 tablet by [facility] daily. Pentoxifylline (1 source) Blood Viscosity [employer] PENTOXIFYLLINE ORAL Take by mouth. 0 Active Comment on above: Take by mouth. petrolatum 0.41 mg/mg topical ointment (1 source) Start : 08-20 white petrolatum (AQUAPHOR) 41 % topical ointment Apply to affected area once daily. 0 08/20/2021 Active Comment on above: Apply to affected ar ea once daily. polyethylene glycol 3350 26100 mg powder for oral solution (1 source) [...] Onset: 10-21-2021 Chronic Other aftercare (4 sources) detention (current) use of anticoagulants; Translations: [detention (current) use of anticoagulants] Onset: 10-21-2021 Episodic Other aftercare (1 source) Drug therapy finding; Translations: [intermediate frame tender (current) use of anticoagulants] Episodic Other aftercare (2 sources) Other rn long term care (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; Translations: [Other longterm (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] Onset: 06-02-2024 Episodic Other [...] [Relative time] 1.5 {INR} Normal [facility] Comment on above: Order Comment: 411.2 Performed By: #### L 300.3900 ####[facility] [address] [place], [address] PT Coag (PPP) [Time] 18.4 s High 11.7-14.9 [facility] Comment on above: Order Comment: 411.2 Performed By: #### L 300.3900 ####[facility] [address] [place], [address] Prothrombin Time w/INRon INR Coag (PPP) [Relative time] 1.8 {INR} Normal [facility] Comment on above: Order Comment: 411.2 Performed By: #### L 300.3900 ####[facility] [address] [place], [address] PT Coag (PPP) [Time] 21.2 s High 11.7-14.9 [facility] Comment on above: Order Comment: 411.2 Performed By: #### L 300.3900 ####[facility] [address] [place], [address] International normalized rat io (INR) calculationOrdered By: Carlos Cavazos on 03-02-2025 INR Coag (Bld) [Relative time] 2.2 {INR} [facility] Prothrombin Time w/INRon INR Coag (PPP) [Relative time] 2.2 {INR} Normal [facility] Comment on above: Order Comment: 411-2 Performed By: #### L 300.3900 ####[facility] [address] [place], [address] Prothrombin timeOrdered By: Carlos Cavazos on 03-02-2025 PT Coag (PPP) [Time] 25.3 s High 11.7-14.9 [facility] Comment on above: Order Comment: 411-2 Performed By: #### L 300.3900 ####[facility] [address] [place], [place], [phone] International normalized rat io (INR) calculationOrdered By: Karon Corrales on 02-26-2025 INR Coag (Bld) [Relative time] 2.2 {INR} [facility] Prothrombin Time w/INRon INR Coag (PPP) [Relative time] 2.2 {INR} Normal [facility] Comment on above: Order Comment: 411.2 Performed By: #### L 300.3900 ####[facility] [address] [place], [place], [address] PT Coag (PPP) [Time] 24.5 s High 11.7-14.9 [facility] Comment on above: Order Comment: 411.2 Performed By: #### L 300.3900 ####[facility] [address] [place], [place], [phone]) Prothrombin timeOrdered By: Karon Corrales on 02-26-2025 PT Coag (PPP) [Time] 24.5 s High 11.7-14.9 [facility] International normalized rat io (INR) calculationOrdered By: Karon Corrales on 02-23-2025 INR Coag (Bld) [Relative time] 2.0 {INR} [facility] Prothrombin Time w/INRon INR Coag (PPP) [Relative time] 2.0 {INR} Normal [facility] Comment on above: Order Comment: 411.2 Performed By: #### L 300.3900 ####[facility] [address] [place], [address] PT Coag (PPP) [Time] 23.5 s High 11.7-14.9 [facility] Comment on above: Order Comment: 411.2 Performed By: #### L 300.3900 ####[facility] [address] [place], [address] Prothrombin timeOrdered By: Karon Corrales on 02-23-2025 PT Coag (PPP) [Time] 23.5 s High 11.7-14.9 [facility] International normalized rat io (INR) calculationOrdered By: Karon Corrales on 02-19-2025 INR Coag (Bld) [Relative time] 1.9 {INR} [facility] Prothrombin Time w/INRon INR Coag (PPP) [Relative time] 1.9 {INR} Normal [facility] Comment on above: Order Comment: 411.2 Performed By: #### L 300.3900 ####[facility] [address] [place], [address] PT Coag (PPP) [Time] 21.8 s High 11.7-14.9 [facility] Comment on above: Order Comment: 411.2 Performed By: #### L 300.3900 ####[facility] [address] [place], [address] Prothrombin timeOrdered By: Karon Corrales on 02-19-2025 PT Coag (PPP) [Time] 21.8 s High 11.7-14.9 [facility] International normalized rat io (INR) calculationOrdered By: Karon Corrales on 02-16-2025 INR Coag (Bld) [Relative time] 1.5 {INR} [facility] Prothrombin Time w/INRon INR Coag (PPP) [Relative time] 1.5 {INR} Normal [facility] Comment on above: Order Comment: 411.2 Performed By: #### L 300.3900 ####[facility] [address] [place], [place], [phone] PT Coag (PPP) [Time] 18.6 s High 11.7-14.9 [facility] Comment on above: Order Comment: 411.2 Performed By: #### L 300.3900 ####[facility] [address] [place] [phone] Prothrombin timeOrdered By: Karon Corrales on 02-16-2025 PT Coag (PPP) [Time] 18.6 s High 11.7-14.9 [facility] International normalized rat io (INR) calculationOrdered By: Karon Corrales on 02-12-2025 INR Coag (Bld) [Relative time] 2.5 {INR} [facility] Prothrombin Time w/INRon INR Coag (PPP) [Relative time] 2.5 {INR} Normal [facility] Comment on above: Order Comment: 411.2 Performed By: #### L 300.3900 ####[facility] [address], [address] PT Coag (PPP) [Time] 27.5 s High 11.7-14.9 [facility] Comment on above: Order Comment: 411.2 Performed By: #### L 300.3900 ####[facility] [address] [place], [place], [phone] Prothrombin timeOrdered By: Karon Corrales on 02-12-2025 PT Coag (PPP) [Time] 27.5 s High 11.7-14.9 [facility] International normalized rat io (INR) calculationOrdered By: Carlos Cavazos on 02-09-2025 INR Coag (Bld) [Relative time] 2.5 {INR} [facility] Prothrombin Time w/INRon INR Coag (PPP) [Relative time] 2.5 {INR} Normal [facility] Comment on above: Order Comment: 411-2 Performed By: #### L 300.3900 ####[facility] [address] [place], [address] INR Normal [facility] Comment on above: Order Comment: 411.2 Result Comment: MISS ING TUBE Performed By: #### L 300.3900 ####[facility] [address] [place], [address] PROTIME Normal 11.7-14.9 [facility] Comment on above: Order Comment: 411.2 Result Comment: MISS ING TUBE Performed By: #### L 300.3900 ####[facility] [address] [place], [address] Prothrombin timeOrdered By: Carlos Cavazos on 02-09-2025 PT Coag (PPP) [Time] 27.2 s High 11.7-14.9 [facility] Comment on above: Order Comment: 411-2 Performed By: #### L 300.3900 ####[facility] [address] [place], [address] International normalized rat io (INR) calculationOrdered By: Karon Corrales on 02-05-2025 INR Coag (Bld) [Relative time] 2.5 {INR} [facility] Prothrombin Time w/INRon INR Coag (PPP) [Relative time] 2.5 {INR} Normal [facility] Comment on above: Order Comment: 411.2 Performed By: #### L 300.3900 ####[facility] [address] [place], [address] PT Coag (PPP) [Time] 27.6 s High 11.7-14.9 [facility] Comment on above: Order Comment: 411.2 Performed By: #### L 300.3900 ####[facility] [address] [place], [place], [phone]) Prothrombin timeOrdered By: Karon Corrales on 02-05-2025 PT Coag (PPP) [Time] 27.6 s High 11.7-14.9 [facility] International normalized rat io (INR) calculationOrdered By: Karon Corrales on 02-02-2025 INR Coag (Bld) [Relative time] 2.4 {INR} [facility] Prothrombin Time w/INRon INR Coag (PPP) [Relative time] 2.4 {INR} Normal [facility] Comment on above: Order Comment: 411.2 Performed By: #### L 300.3900 ####[facility] [address] [place], [place], [phone] PT Coag (PPP) [Time] 26.8 s High 11.7-14.9 [facility] Comment on above: Order Comment: 411.2 Performed By: #### L 300.3900 ####[facility] [address] [place], [place], [phone] Prothrombin timeOrdered By: Karon Corrales on 02-02-2025 PT Coag (PPP) [Time] 26.8 s High 11.7-14.9 [facility] International normalized rat io (INR) calculationOrdered By: Karon Corrales on 01-29-2025 INR Coag (Bld) [Relative time] 2.7 {INR} [facility] Prothrombin Time w/INRon INR Coag (PPP) [Relative time] 2.7 {INR} Normal [facility] Comment on above: Performed By: #### L 300.3900 ####[facility] [address] [place], [place], [address] PT Coag (PPP) [Time] 29.1 s High 11.7-14.9 [facility] Comment on above: Performed By: #### L 300.3900 ####[facility] [address] [place], [place], [address] Prothrombin timeOrdered By: Karon Corrales on 01-29-2025 PT Coag (PPP) [Time] 29.1 s High 11.7-14.9 [facility] International normalized rat io (INR) calculationOrdered By: Karon Corrales on 01-26-2025 INR Coag (Bld) [Relative time] 2.0 {INR} [facility] Prothrombin Time w/INRon INR Coag (PPP) [Relative time] 2.0 {INR} Normal [facility] Comment on above: Order Comment: 411.2 Performed By: #### L 300.3900 ####[facility] [address] [place], [place], [phone] PT Coag (PPP) [Time] 23.1 s High 11.7-14.9 [facility] Comment on above: Order Comment: 411.2 Performed By: #### L 300.3900 ####[facility] [address] [place], [place], [address] Prothrombin timeOrdered By: Karon Corrales on 01-26-2025 PT Coag (PPP) [Time] 23.1 s High 11.7-14.9 [facility] International normalized rat io (INR) calculationOrdered By: Karon Corrales on 01-22-2025 INR Coag (Bld) [Relative time] 2.4 {INR} [facility] Prothrombin Time w/INRon INR Coag (PPP) [Relative time] 2.4 {INR} Normal [facility] Comment on above: Order Comment: 411.2 Performed By: #### L 300.3900 ####[facility] [address] [place], [address] PT Coag (PPP) [Time] 26.6 s High 11.7-14.9 [facility] Comment on above: Order Comment: 411.2 Performed By: #### L 300.3900 ####[facility] [address] [place], [address] Prothrombin timeOrdered By: Karon Corrales on 01-22-2025 PT Coag (PPP) [Time] 26.6 s High 11.7-14.9 [facility] International normalized rat io (INR) calculationOrdered By: Carlos Cavazos on 01-19-2025 INR Coag (Bld) [Relative time] 2.7 {INR} [facility] Prothrombin Time w/INRon INR Coag (PPP) [Relative time] 2.7 {INR} Normal [facility] Comment on above: Order Comment: 411-2 Performed By: #### L 300.3900 ####[facility] [address] [place], [address] PT Coag (PPP) [Time] 29.7 s High 11.7-14.9 [facility] Comment on above: Order Comment: 411-2 Performed By: #### L 300.3900 ####[facility] [address] [place], [address] Prothrombin timeOrdered By: Carlos Cavazos on 01-19-2025 PT Coag (PPP) [Time] 29.7 s High 11.7-14.9 [facility] International normalized rat io (INR) calculationOrdered By: Karon Corrales on 01-15-2025 INR Coag (Bld) [Relative time] 2.4 {INR} [facility] Prothrombin Time w/INRon INR Coag (PPP) [Relative time] 2.4 {INR} Normal [facility] Comment on above: Order Comment: 411.1 Performed By: #### L 300.3900 ####[facility] [address] [place], [place], [address] PT Coag (PPP) [Time] 26.6 s High 11.7-14.9 [facility] Comment on above: Order Comment: 411.1 Performed By: #### L 300.3900 ####[facility] [address] [place], [place], [address] Prothrombin timeOrdered By: Karon Corrales on 01-15-2025 PT Coag (PPP) [Time] 26.6 s High 11.7-14.9 [facility] KEPPRA (LEVETIRACETAM)on KEPPRA 30.1 ug/mL Normal 10.0-40.0 [facility] Comment on above: Order Comment: 411.1 Result Comment: Perf ormed at: [employer] [facility] [address] [id number] Director: Alpesh Vázquez MD, Phone: [phone] Performed By: #### L 3310.0000, L300.3900 ####[facility] [address] [place], [place], [address] International normalized rat io (INR) calculationOrdered By: Karon Corrales on 01-12-2025 INR Coag (Bld) [Relative time] 2.3 {INR} [facility] LevetiracetamOrdered By: aCrla Corrales on 01-12-2025 levETIRAcetam [Mass/Vol] 30.1 ug/mL 10.0-40.0 [facility] Comment on above: Performed at: [employer] [facility] [address] [id number] Director: Alpesh Vázquez MD, Phone: [phone] Prothrombin Time w/INRon INR Coag (PPP) [Relative time] 2.3 {INR} Normal [facility] Comment on above: Order Comment: 411.1 Performed By: #### L 3310.0000, L300.3900 ####[facility] [address] [place], [address] PT Coag (PPP) [Time] 26.1 s High 11.7-14.9 [facility] Comment on above: Order Comment: 411.1 Performed By: #### L 3310.0000, L300.3900 ####[facility] [address] [place], [address] Prothrombin timeOrdered By: Karon Corrales on 01-12-2025 PT Coag (PPP) [Time] 26.1 s High 11.7-14.9 [facility] KEPPRA (LEVETIRACETAM)on KEPPRA 27.6 ug/mL Normal 10.0-40.0 [facility] Comment on above: Order Comment: 411.1 Result Comment: Perf ormed at: - [facility] [id number] Director: Alpesh Vázquez MD, Phone: [phone] Performed By: #### L 3310.0000, L300.3900 ####[facility] [address] [place], [address] International normalized rat io (INR) calculationOrdered By: Karon Corrales on 01-08-2025 INR Coag (Bld) [Relative time] 2.2 {INR} [facility] Prothrombin Time w/INRon INR Coag (PPP) [Relative time] 2.2 {INR} Normal [facility] Comment on above: Order Comment: 411.1 Performed By: #### L 300.3900 ####[facility] [address] [place], [address] PT Coag (PPP) [Time] 24.5 s High 11.7-14.9 [facility] Comment on above: Order Comment: 411.1 Performed By: #### L 300.3900 ####[facility] [address] [place], [place], [address] Prothrombin timeOrdered By: Karon Corrales on 01-08-2025 PT Coag (PPP) [Time] 24.5 s High 11.7-14.9 [facility] International normalized rat io (INR) calculationOrdered By: Karon Corrales on 01-06-2025 INR Coag (Bld) [Relative time] 3.2 {INR} [facility] LevetiracetamOrdered By: Carla Corrales on 01-06-2025 levETIRAcetam [Mass/Vol] 27.6 ug/mL 10.0-40.0 [facility] Comment on above: Performed at: [address] [id number] Director: Alpesh Vázquez MD, Phone: [phone] Prothrombin Time w/INRon INR Coag (PPP) [Relative time] 3.2 {INR} Normal [facility] Comment on above: Order Comment: 411.1 Performed By: #### L 3310.0000, L300.3900 ####[facility] [address] [place], [place], [address] PT Coag (PPP) [Time] 33.1 s High 11.7-14.9 [facility] Comment on above: Order Comment: 411.1 Performed By: #### L 3310.0000, L300.3900 ####[facility] [address] [place], [place], [address] Prothrombin timeOrdered By: Karon Corrales on 01-06-2025 PT Coag (PPP) [Time] 33.1 s High 11.7-14.9 [facility] International normalized rat io (INR) calculationOrdered By: Karon Corrales on 01-01-2025 INR Coag (Bld) [Relative time] 2.7 {INR} [facility] Prothrombin Time w/INRon INR Coag (PPP) [Relative time] 2.7 {INR} Normal [facility] Comment on above: Order Comment: 411.1 Performed By: #### L 300.3900 ####[facility] [address] [place], [place], [address] Prothrombin timeOrdered By: Karon Corrales on 01-01-2025 PT Coag (PPP) [Time] 29.1 s High 11.7-14.9 [facility] Comment on above: Order Comment: 411.1 Performed By: #### L 300.3900 ####[facility] [address] [place], [place], [address] KEPPRA (LEVETIRACETAM)on KEPPRA 31.8 ug/mL Normal 10.0-40.0 [facility] Comment on above: Order Comment: 411-1 Result Comment: Perf ormed at: [employer] [address] [id number] Director: Alpesh Vázquez MD, Phone: [phone] Performed By: #### L 3310.0000, W364.3900 ####[facility] [address] [facility] [phone] International normalized rat io (INR) calculationOrdered By: Carlos Cavazos on 12-29-2024 INR Coag (Bld) [Relative time] 3.3 {INR} [facility] KEPPRA (LEVETIRACETAM)on KEPPRA 33.3 ug/mL Normal 10.0-40.0 [facility] Comment on above: Order Comment: 411.1 Result Comment: Perf ormed at: [employer] [id number] Director: Alpesh Vázquez MD, Phone: [phone] Performed By: #### L 3310.0000 ####[facility] [address] [place], [place], [address] LevetiracetamOrdered By: Ted Cavazos on 12-29-2024 levETIRAcetam [Mass/Vol] 31.8 ug/mL 10.0-40.0 [facility] Comment on above: Performed at: [employer] [facility] [employer] [id number] Director: Alpesh Vázquez MD, Phone: [phone] Prothrombin Time w/INRon INR Coag (PPP) [Relative time] 3.3 {INR} Normal [facility] Comment on above: Order Comment: 411-1 Performed By: #### L 3310.0000, L300.3900 ####[facility] [address] [place], [place], [address] Prothrombin timeOrdered By: Carlos Cavazos on 12-29-2024 PT Coag (PPP) [Time] 34.0 s High 11.7-14.9 [facility] Comment on above: Order Comment: 411-1 Performed By: #### L 3310.0000, L300.3900 ####[facility] [address] [place], [place], [address] LevetiracetamOrdered By: Carla Corrales on 12-26-2024 levETIRAcetam [Mass/Vol] 33.3 ug/mL 10.0-40.0 [facility] Comment on above: Performed at: [employer] [address] [id number] Director: Alpesh Vázquez MD, Phone: [phone] International normalized rat io (INR) calculationOrdered By: Karon Corrales on 12-25-2024 INR Coag (Bld) [Relative time] 2.8 {INR} [facility] Prothrombin Time w/INRon INR Coag (PPP) [Relative time] 2.8 {INR} Normal [facility] Comment on above: Order Comment: 411.1 Performed By: #### L 300.3900 ####[facility] [address] [place], [address] Prothrombin timeOrdered By: Karon Corrales on 12-25-2024 PT Coag (PPP) [Time] 30.0 s High 11.7-14.9 [facility] Comment on above: Order Comment: 411.1 Performed By: #### L 300.3900 ####[facility] [address] [place], [address] Anion gap in Serum or Plasma Ordered By: Carlos Cavazos on 12-24-2024 Anion gap [Moles/Vol] 13 mmol/L 09-18 [facility] BUN/creatinine ratioOrdered By: Carlos Cavazos on 12-24-2024 Urea nitrogen/Creatinine [Mass ratio] 19.2 mg/mg 02-23 [facility] Basic Metabolic Profile (BMP )on 12-24-2024 BUN/CRE 19.2 RATIO Normal 02-23 [facility] Comment on above: Order Comment: 411-1 Performed By: #### L 500.2500, L100.0500 ####[facility] [address] [place], [address] Calcium [Mass/Vol] 8.8 mg/dL Normal 7.6-11.0 [facility] Comment on above: Order Comment: 411-1 Performed By: #### L 500.2500, L100.0500 ####[facility] [address] [place], [address] Chloride [Moles/Vol] 103 mmol/L Normal 98-108 [facility] Comment on above: Order Comment: 411-1 Performed By: #### L 500.2500, L100.0500 ####[facility] [address] [place], [address] CO2 [Moles/Vol] 23.7 mmol/L Normal 21.0-32.0 [facility] Comment on above: Order Comment: 411-1 Performed By: #### L 500.2500, L100.0500 ####[facility] [address] [place], [address] Creatinine [Mass/Vol] 0.82 mg/dL Normal 0.70-1.20 [facility] Comment on above: Order Comment: 411-1 Performed By: #### L 500.2500, L100.0500 ####[facility] [address] [place], [address] GAP 13 Normal 5-15 [facility] Comment on above: Order Comment: 411-1 Performed By: #### L 500.2500, L100.0500 ####[facility] [address] [place], [address] GFR/1.73 sq M.predicted among non-blacks MDRD (S/P/Bld) [Vol rate/Area] 93 mL/min/{1.73_m2} Normal >60 [facility] Comment on above: Order Comment: 411- Result Comment: mL/m in/1.73m2 CKD-EPI Creatinine Equation (2020) Performed By: #### L 500.2500, L100.0500 ####[facility] [address] [place], [address] Glucose [Mass/Vol] 88 mg/dL Normal 70-99 [facility] Comment on above: Order Comment: 411-1 Performed By: #### L 500.2500, L100.0500 ####[facility] [address] [place], [address] Potassium [Moles/Vol] 4.2 mmol/L Normal 3.3-5.1 [facility] Comment on above: Order Comment: 411-1 Performed By: #### L 500.2500, L100.0500 ####[facility] [address] [place], [address] Sodium [Moles/Vol] 139 mmol/L Normal 133-145 [facility] Comment on above: Order Comment: 411-1 Performed By: #### L 500.2500, L100.0500 ####[facility] [address] [place], [address] Urea nitrogen [Mass/Vol] 16 mg/dL Normal 4-19 [facility] Comment on above: Order Comment: 411-1 Performed By: #### L 500.2500, L100.0500 ####[facility] [address] [place], [address] CBC-Complete Blood Cnt No Di ffon 12-24-2024 Erythrocyte distribution width (RBC) [Ratio] 15.4 % High 11.6-14.6 [facility] Comment on above: Order Comment: 411-1 Performed By: #### L 500.2500, L100.0500 ####[facility] [address] [place], [address] Hematocrit (Bld) [Volume fraction] 39.8 % Low 40-54 [facility] Comment on above: Order Comment: 411-1 Performed By: #### L 500.2500, L100.0500 ####[facility] [address] [place], [address] Hemoglobin (Bld) [Mass/Vol] 12.4 g/dL Low 13.0-16.5 [facility] Comment on above: Order Comment: 411-1 Performed By: #### L 500.2500, L100.0500 ####[facility] [address] [place], [address] MCH (RBC) [Entitic mass] 26.6 pg Low 27.0-32.0 [facility] Comment on above: Order Comment: 411-1 Performed By: #### L 500.2500, L100.0500 ####[facility] [address] [place], [address] MCHC (RBC) [Mass/Vol] 31.2 g/dL Low 32-36 [facility] Comment on above: Order Comment: 411-1 Performed By: #### L 500.2500, L100.0500 ####[facility] [address] [place], [address] MCV (RBC) [Entitic vol] 85.4 fL Normal 80-94 [facility] Comment on above: Order Comment: 411-1 Performed By: #### L 500.2500, L100.0500 ####[facility] [address] [place], [address] Platelet mean volume (Bld) [Entitic vol] 10.4 fL Normal 6.2-12.0 [facility] Comment on above: Order Comment: 411-1 Performed By: #### L 500.2500, L100.0500 ####[facility] [address] [place], [address] Platelets (Bld) [#/Vol] 290 10*3/uL Normal 150-450 [facility] Comment on above: Order Comment: 411-1 Performed By: #### L 500.2500, L100.0500 ####[facility] [address] [place], [address] RBC (Bld) [#/Vol] 4.66 10*6/uL Normal 4.6-6.2 [facility] Comment on above: Order Comment: 411-1 Performed By: #### L 500.2500, L100.0500 ####[facility] [address] [place], [address] RDW SD 48.1 fl High 35.1-43.9 [facility] Comment on above: Order Comment: 411-1 Performed By: #### L 500.2500, L100.0500 ####[facility] [address] [place], [address] WBC (Bld) [#/Vol] 16.6 10*3/uL High 4.4-11.0 [facility] Comment on above: Order Comment: 411-1 Performed By: #### L 500.2500, L100.0500 ####[facility] [address] [place], [address] Carbon dioxide, total [Moles /volume] in Central venous bloodOrdered By: Carlos Cavazos on 12-24-2024 CO2 [Moles/Vol] 23.7 mmol/L 21.0-32.0 [facility] Chloride assayOrdered By: Sharif Crouch on 12-24-2024 Chloride [Moles/Vol] 103 mmol/L 98-108 [facility] Erythrocyte distribution wid th ratioOrdered By: Carlos Cavazos on 12-24-2024 Erythrocyte distribution width (RBC) [Ratio] 15.4 % High 11.6-14.6 [facility] Erythrocyte distribution wid th standard deviationOrdered By: Carlos Cavazos on 12-24-2024 Erythrocyte distribution width (RBC) [Ratio] 48.1 fl High 35.1-43.9 [facility] Glomerular filtration rate ( GFR) estimation/1.73 sq m using serum, plasma, or whole bOrdered By: Carlos Cavazos on 12-24-2024 GFR/1.73 sq M.predicted among non-blacks MDRD (S/P/Bld) [Vol rate/Area] 93 mL/min/{1.73_m2} >60 [facility] Comment on above: mL/min/1.73m2 CKD-EP I Creatinine Equation (2020) Hematocrit Auto (Bld) [Volum e fraction]Ordered By: Carlos Cavazos on 12-24-2024 Hematocrit (Bld) [Volume fraction] 39.8 % Low 40-54 [facility] Hemoglobin measurementOrdere d By: Carlos Cavazos on 12-24-2024 Hemoglobin (Bld) [Mass/Vol] 12.4 g/dL Low 13.0-16.5 [facility] MCV (mean corpuscular volume ) determinationOrdered By: Carlos Cavazos on 12-24-2024 MCV (RBC) [Entitic vol] 85.4 fL 80-94 [facility] Mean corpuscular hemoglobin (MCH) determinationOrdered By: Carlos Cavazos on 12-24-2024 MCH (RBC) [Entitic mass] 26.6 pg Low 27.0-32.0 [facility] Mean corpuscular hemoglobin concentration (MCHC) determinationOrdered By: Carlos Cavazos on 12-24-2024 MCHC (RBC) [Mass/Vol] 31.2 g/dL Low 32-36 [facility] Mean platelet volume determi nationOrdered By: Carlos Cavazos on 12-24-2024 Platelet mean volume (Bld) [Entitic vol] 10.4 fL 6.2-12.0 [facility] Platelet countOrdered By: Sharif Crouch on 12-24-2024 Platelets (Bld) [#/Vol] 290 10*3/uL 150-450 [facility] Potassium measurement (mass/ volume)Ordered By: Carlos Cavazos on 12-24-2024 Potassium (Unsp spec) [Mass/Vol] 4.2 mmol/L 3.3-5.1 [facility] RBC Auto (Bld) [#/Vol]Ordere d By: Carlos Cavazos on 12-24-2024 RBC (Bld) [#/Vol] 4.66 10*6/uL 4.6-6.2 [facility] Serum creatinine measurement (mass/volume)Ordered By: Carlos Cavazos on 12-24-2024 Creatinine [Mass/Vol] 0.82 mg/dL 0.70-1.20 [facility] Serum glucose measurement (m ass/volume)Ordered By: Carlos Cavazos on 12-24-2024 Glucose [Mass/Vol] 88 mg/dL 70-99 [facility] Serum or plasma calcium oral urement (mass/volume)Ordered By: Carlos Cavazos on 12-24-2024 Calcium [Mass/Vol] 8.8 mg/dL 7.6-11.0 [facility] Serum or plasma urea nitroge n measurement (mass/volume)Ordered By: Carlos Cavazos on 12-24-2024 Urea nitrogen [Mass/Vol] 16 mg/dL 4-19 [facility] Sodium levelOrdered By: Moe Cavazos on 12-24-2024 Sodium [Moles/Vol] 139 mmol/L 133-145 [facility] White blood cell (WBC) count Ordered By: Carlos Cavazos on 12-24-2024 WBC (Bld) [#/Vol] 16.6 10*3/uL High 4.4-11.0 [facility] International normalized rat io (INR) calculationOrdered By: Karon Corrales on 12-22-2024 INR Coag (Bld) [Relative time] 2.6 {INR} [facility] Prothrombin Time w/INRon INR Coag (PPP) [Relative time] 2.6 {INR} Normal [facility] Comment on above: Order Comment: 411.1 Performed By: #### L 300.3900 ####[facility] [address] [place], [place], [phone] PT Coag (PPP) [Time] 28.8 s High 11.7-14.9 [facility] Comment on above: Order Comment: 411.1 Performed By: #### L 300.3900 ####[facility] [address] [place], [place], [phone] Prothrombin timeOrdered By: Karon Corrales on 12-22-2024 PT Coag (PPP) [Time] 28.8 s High 11.7-14.9 [facility] International normalized rat io (INR) calculationOrdered By: Karon Corrales on 12-18-2024 INR Coag (Bld) [Relative time] 2.4 {INR} [facility] Prothrombin Time w/INRon INR Coag (PPP) [Relative time] 2.4 {INR} Normal [facility] Comment on above: Order Comment: 411.1 Performed By: #### L 300.3900 ####[facility] [address] [place], [place], [phone] PT Coag (PPP) [Time] 26.7 s High 11.7-14.9 [facility] Comment on above: Order Comment: 411.1 Performed By: #### L 300.3900 ####[facility] [address] [place], [address] Prothrombin timeOrdered By: Karon Corrales on 12-18-2024 PT Coag (PPP) [Time] 26.7 s High 11.7-14.9 [facility] International normalized rat io (INR) calculationOrdered By: Karon Corrales on 12-15-2024 INR Coag (Bld) [Relative time] 2.3 {INR} [facility] Prothrombin Time w/INRon INR Coag (PPP) [Relative time] 2.3 {INR} Normal [facility] Comment on above: Order Comment: 411.1 Performed By: #### L 300.3900 ####[facility] [address] [place], [address] Prothrombin timeOrdered By: Karon Corrales on 12-15-2024 PT Coag (PPP) [Time] 25.7 s High 11.7-14.9 [facility] Comment on above: Order Comment: 411.1 Performed By: #### L 300.3900 ####[facility] [address] [place], [place], [address] International normalized rat io (INR) calculationOrdered By: Carlos Cavazos on 12-11-2024 INR Coag (Bld) [Relative time] 2.2 {INR} [facility] Prothrombin Time w/INRon INR Coag (PPP) [Relative time] 2.2 {INR} Normal [facility] Comment on above: Order Comment: 411-1 Performed By: #### L 300.3900 ####[facility] [address] [place], [place], [address] Prothrombin timeOrdered By: Carlos Cavazos on 12-11-2024 PT Coag (PPP) [Time] 24.7 s High 11.7-14.9 [facility] Comment on above: Order Comment: 411-1 Performed By: #### L 300.3900 ####[facility] [address] [place], [place], [phone]) International normalized rat io (INR) calculationOrdered By: Karon Corrales on 12-08-2024 INR Coag (Bld) [Relative time] 2.2 {INR} [facility] Prothrombin Time w/INRon INR Coag (PPP) [Relative time] 2.2 {INR} Normal [facility] Comment on above: Order Comment: 411.1 Performed By: #### L 300.3900 ####[facility] [address] [place], [address] PT Coag (PPP) [Time] 25.0 s High 11.7-14.9 [facility] Comment on above: Order Comment: 411.1 Performed By: #### L 300.3900 ####[facility] [address] [place], [address] Prothrombin timeOrdered By: Karon Corrales on 12-08-2024 PT Coag (PPP) [Time] 25.0 s High 11.7-14.9 [facility] International normalized rat io (INR) calculationOrdered By: Karon Corrales on 12-04-2024 INR Coag (Bld) [Relative time] 2.3 {INR} [facility] Prothrombin Time w/INRon INR Coag (PPP) [Relative time] 2.3 {INR} Normal [facility] Comment on above: Order Comment: 411.1 Performed By: #### L 300.3900 ####[facility] [address] [place], [address] PT Coag (PPP) [Time] 25.9 s High 11.7-14.9 [facility] Comment on above: Order Comment: 411.1 Performed By: #### L 300.3900 ####[facility] [address] [place], [place], [address] Prothrombin timeOrdered By: Karon Corrales on 12-04-2024 PT Coag (PPP) [Time] 25.9 s High 11.7-14.9 [facility] International normalized rat io (INR) calculationOrdered By: Karon Corrales on 12-02-2024 INR Coag (Bld) [Relative time] 2.5 {INR} [facility] Prothrombin Time w/INRon INR Coag (PPP) [Relative time] 2.5 {INR} Normal [facility] Comment on above: Order Comment: 411.1 Performed By: #### L 300.3900 ####[facility] [address] [place], [place], [address] PT Coag (PPP) [Time] 27.3 s High 11.7-14.9 [facility] Comment on above: Order Comment: 411.1 Performed By: #### L 300.3900 ####[facility] [address] [place], [place], [address] Prothrombin timeOrdered By: Karon Corrales on 12-02-2024 PT Coag (PPP) [Time] 27.3 s High 11.7-14.9 [facility] International normalized rat io (INR) calculationOrdered By: Carlos Cavazos on 12-01-2024 INR Coag (Bld) [Relative time] 2.3 {INR} [facility] Prothrombin Time w/INRon INR Coag (PPP) [Relative time] 2.3 {INR} Normal [facility] Comment on above: Order Comment: 411-1 Performed By: #### L 300.3900 ####[facility] [address] [place], [place], [address] PT Coag (PPP) [Time] 26.0 s High 11.7-14.9 [facility] Comment on above: Order Comment: 411-1 Performed By: #### L 300.3900 ####[facility] [address] [place], [place], [phone] Prothrombin timeOrdered By: Carlos Cavazos on 12-01-2024 PT Coag (PPP) [Time] 26.0 s High 11.7-14.9 [facility] International normalized rat io (INR) calculationOrdered By: Carlos Cavazos on 11-28-2024 INR Coag (Bld) [Relative time] 3.1 {INR} [facility] Prothrombin Time w/INRon INR Coag (PPP) [Relative time] 3.1 {INR} Normal [facility] Comment on above: Order Comment: 411-1 Performed By: #### L 300.3900 ####[facility] [address] [place], [place], [phone](255) PT Coag (PPP) [Time] 32.8 s High 11.7-14.9 [facility] Comment on above: Order Comment: 411-1 Performed By: #### L 300.3900 ####[facility] [address] [place], [place], [address] Prothrombin timeOrdered By: Carlos Cavazos on 11-28-2024 PT Coag (PPP) [Time] 32.8 s High 11.7-14.9 [facility] International normalized rat io (INR) calculationOrdered By: Karon Corrales on 11-27-2024 INR Coag (Bld) [Relative time] 3.3 {INR} [facility] Prothrombin Time w/INRon INR Coag (PPP) [Relative time] 3.3 {INR} Normal [facility] Comment on above: Order Comment: 411.1 Performed By: #### L 300.3900 ####[facility] [address] [place], [place], [phone]39) PT Coag (PPP) [Time] 34.3 s High 11.7-14.9 [facility] Comment on above: Order Comment: 411.1 Performed By: #### L 300.3900 ####[facility] [address] [place], [place], [address] Prothrombin timeOrdered By: Karon Corrales on 11-27-2024 PT Coag (PPP) [Time] 34.3 s High 11.7-14.9 [facility] International normalized rat io (INR) calculationOrdered By: Karon Corrales on 11-24-2024 INR Coag (Bld) [Relative time] 2.8 {INR} [facility] Prothrombin Time w/INRon INR Coag (PPP) [Relative time] 2.8 {INR} Normal [facility] Comment on above: Order Comment: 411.2 Performed By: #### L 300.3900 ####[facility] [address] [place], [place], [address] PT Coag (PPP) [Time] 30.0 s High 11.7-14.9 [facility] Comment on above: Order Comment: 411.2 Performed By: #### L 300.3900 ####[facility] [address] [place], [place], [address] Prothrombin timeOrdered By: Karon Corrales on 11-24-2024 PT Coag (PPP) [Time] 30.0 s High 11.7-14.9 [facility] International normalized rat io (INR) calculationOrdered By: Karon Corrales on 11-20-2024 INR Coag (Bld) [Relative time] 3.0 {INR} [facility] Prothrombin Time w/INRon INR Coag (PPP) [Relative time] 3.0 {INR} Normal [facility] Comment on above: Order Comment: 411.2 Performed By: #### L 300.3900 ####[facility] [address] [place], [place], [phone](522) PT Coag (PPP) [Time] 32.0 s High 11.7-14.9 [facility] Comment on above: Order Comment: 411.2 Performed By: #### L 300.3900 ####[facility] [address] [place], [place], [address](133) Prothrombin timeOrdered By: Karon Corrales on 11-20-2024 PT Coag (PPP) [Time] 32.0 s High 11.7-14.9 [facility] International normalized rat io (INR) calculationOrdered By: Karon Corrales on 11-17-2024 INR Coag (Bld) [Relative time] 2.9 {INR} [facility] Prothrombin Time w/INRon INR Coag (PPP) [Relative time] 2.9 {INR} Normal [facility] Comment on above: Order Comment: 411.2 Performed By: #### L 300.3900 ####[facility] [address], [address] PT Coag (PPP) [Time] 30.7 s High 11.7-14.9 [facility] Comment on above: Order Comment: 411.2 Performed By: #### L 300.3900 ####[facility] [address], [address] Prothrombin timeOrdered By: Karon Corrales on 11-17-2024 PT Coag (PPP) [Time] 30.7 s High 11.7-14.9 [facility] International normalized rat io (INR) calculationOrdered By: Karon Corrales on 11-13-2024 INR Coag (Bld) [Relative time] 2.2 {INR} [facility] Prothrombin Time w/INRon INR Coag (PPP) [Relative time] 2.2 {INR} Normal [facility] Comment on above: Order Comment: 411.2 Performed By: #### L 300.3900 ####[facility] [address] [place], [address] PT Coag (PPP) [Time] 24.7 s High 11.7-14.9 [facility] Comment on above: Order Comment: 411.2 Performed By: #### L 300.3900 ####[facility] [address] [place], [place], [address] Prothrombin timeOrdered By: Karon Corrales on 11-13-2024 PT Coag (PPP) [Time] 24.7 s High 11.7-14.9 [facility] International normalized rat io (INR) calculationOrdered By: Karon Corrales on 11-10-2024 INR Coag (Bld) [Relative time] 2.6 {INR} [facility] Prothrombin Time w/INRon INR Coag (PPP) [Relative time] 2.6 {INR} Normal [facility] Comment on above: Order Comment: 411.2 Performed By: #### L 300.3900 ####[facility] [address] [place], [place], [phone] PT Coag (PPP) [Time] 28.7 s High 11.7-14.9 [facility] Comment on above: Order Comment: 411.2 Performed By: #### L 300.3900 ####[facility] [address] [place], [place], [phone] Prothrombin timeOrdered By: Karon Corrales on 11-10-2024 PT Coag (PPP) [Time] 28.7 s High 11.7-14.9 [facility] International normalized rat io (INR) calculationOrdered By: Karon Corrales on 11-06-2024 INR Coag (Bld) [Relative time] 3.1 {INR} [facility] Prothrombin Time w/INRon INR Coag (PPP) [Relative time] 3.1 {INR} Normal [facility] Comment on above: Order Comment: 411.2 Performed By: #### L 300.3900 ####[facility] [address] [place], [place], [phone](784) Prothrombin timeOrdered By: Karon Corrales on 11-06-2024 PT Coag (PPP) [Time] 33.0 s High 11.7-14.9 [facility] Comment on above: Order Comment: 411.2 Performed By: #### L 300.3900 ####[facility] [address] [place], [place], [phone] International normalized rat io (INR) calculationOrdered By: Carlos Cavazos on 11-03-2024 INR Coag (Bld) [Relative time] 3.0 {INR} [facility] Prothrombin Time w/INRon INR Coag (PPP) [Relative time] 3.0 {INR} Normal [facility] Comment on above: Order Comment: 411-2 Performed By: #### L 300.3900 ####[facility] [address], [address] PT Coag (PPP) [Time] 31.4 s High 11.7-14.9 [facility] Comment on above: Order Comment: 411-2 Performed By: #### L 300.3900 ####[facility] [address] [place], [place], [phone] Prothrombin timeOrdered By: Carlos Cavazos on 11-03-2024 PT Coag (PPP) [Time] 31.4 s High 11.7-14.9 [facility] International normalized rat io (INR) calculationOrdered By: Karon Corrales on 10-30-2024 INR Coag (Bld) [Relative time] 2.4 {INR} [facility] Prothrombin Time w/INRon INR Coag (PPP) [Relative time] 2.4 {INR} Normal [facility] Comment on above: Performed By: #### L 300.3900 ####[facility] [address] [place], [address] PT Coag (PPP) [Time] 26.3 s High 11.7-14.9 [facility] Comment on above: Performed By: #### L 300.3900 ####[facility] [address] [place], [place], [phone] Prothrombin timeOrdered By: Karon Corrales on 10-30-2024 PT Coag (PPP) [Time] 26.3 s High 11.7-14.9 [facility] International normalized rat io (INR) calculationOrdered By: Karon Corrales on 10-27-2024 INR Coag (Bld) [Relative time] 2.2 {INR} [facility] Prothrombin Time w/INRon INR Coag (PPP) [Relative time] 2.2 {INR} Normal [facility] Comment on above: Order Comment: 411.2 Performed By: #### L 300.3900 ####[facility] [address] [place], [place], [phone] Prothrombin timeOrdered By: Karon Corrales on 10-27-2024 PT Coag (PPP) [Time] 24.5 s High 11.7-14.9 [facility] Comment on above: Order Comment: 411.2 Performed By: #### L 300.3900 ####[facility] [address] [place], [place], [phone] International normalized rat io (INR) calculationOrdered By: Karon Corrales on 10-23-2024 INR Coag (Bld) [Relative time] 2.5 {INR} [facility] Prothrombin Time w/INRon INR Coag (PPP) [Relative time] 2.5 {INR} Normal [facility] Comment on above: Order Comment: 411.2 Performed By: #### L 300.3900 ####[facility] [address] [place], [place], [phone] PT Coag (PPP) [Time] 27.9 s High 11.7-14.9 [facility] Comment on above: Order Comment: 411.2 Performed By: #### L 300.3900 ####[facility] [address] [place], [place], [address] Prothrombin timeOrdered By: Karon Corrales on 10-23-2024 PT Coag (PPP) [Time] 27.9 s High 11.7-14.9 [facility] International normalized rat io (INR) calculationOrdered By: Karon Corrales on 10-20-2024 INR Coag (Bld) [Relative time] 3.1 {INR} [facility] Prothrombin Time w/INRon INR Coag (PPP) [Relative time] 3.1 {INR} Normal [facility] Comment on above: Order Comment: 411.2 Performed By: #### L 300.3900 ####[facility] [address] [place], [place], [phone] PT Coag (PPP) [Time] 32.8 s High 11.7-14.9 [facility] Comment on above: Order Comment: 411.2 Performed By: #### L 300.3900 ####[facility] [address] [place], [place], [phone] Prothrombin timeOrdered By: Karon Corrales on 10-20-2024 PT Coag (PPP) [Time] 32.8 s High 11.7-14.9 [facility] International normalized rat io (INR) calculationOrdered By: Karon Corrales on 10-16-2024 INR Coag (Bld) [Relative time] 2.8 {INR} [facility] Prothrombin Time w/INRon INR Coag (PPP) [Relative time] 2.8 {INR} Normal [facility] Comment on above: Order Comment: 411.2 Performed By: #### L 300.3900 ####[facility] [address] [place], [phone]) PT Coag (PPP) [Time] 30.4 s High 11.7-14.9 [facility] Comment on above: Order Comment: 411.2 Performed By: #### L 300.3900 ####[facility] [address] [place], [place], [phone]) Prothrombin timeOrdered By: Karon Corrales on 10-16-2024 PT Coag (PPP) [Time] 30.4 s High 11.7-14.9 [facility] International normalized rat io (INR) calculationOrdered By: Carlos Cavazos on 10-13-2024 INR Coag (Bld) [Relative time] 1.9 {INR} [facility] Prothrombin Time w/INRon INR Coag (PPP) [Relative time] 1.9 {INR} Normal [facility] Comment on above: Order Comment: 411-2 Performed By: #### L 300.3900 ####[facility] [address] [place], [place], [phone]) PT Coag (PPP) [Time] 22.4 s High 11.7-14.9 [facility] Comment on above: Order Comment: 411-2 Performed By: #### L 300.3900 ####[facility] [address] [place], [place], [phone] Prothrombin timeOrdered By: Carlos Cavazos on 10-13-2024 PT Coag (PPP) [Time] 22.4 s High 11.7-14.9 [facility] International normalized rat io (INR) calculationOrdered By: Karon Corrales on 10-09-2024 INR Coag (Bld) [Relative time] 3.0 {INR} [facility] Prothrombin Time w/INRon INR Coag (PPP) [Relative time] 3.0 {INR} Normal [facility] Comment on above: Order Comment: 411.2 Performed By: #### L 300.3900 ####[facility] [address] [place], [place], [phone] Prothrombin timeOrdered By: Karon Corrales on 10-09-2024 PT Coag (PPP) [Time] 31.8 s High 11.7-14.9 [facility] Comment on above: Order Comment: 411.2 Performed By: #### L 300.3900 ####[facility] [address] [place], [place], [phone]) International normalized rat io (INR) calculationOrdered By: Carlos Cavazos on 10-06-2024 INR Coag (Bld) [Relative time] 2.7 {INR} [facility] Prothrombin Time w/INRon INR Coag (PPP) [Relative time] 2.7 {INR} Normal [facility] Comment on above: Order Comment: 411-2 Performed By: #### L 300.3900 ####[facility] [address] [place], [place], [phone]([phone] PT Coag (PPP) [Time] 29.6 s High 11.7-14.9 [facility] Comment on above: Order Comment: 411-2 Performed By: #### L 300.3900 ####[facility] [address] [place], [place], [phone] Prothrombin timeOrdered By: Carlos Cavazos on 10-06-2024 PT Coag (PPP) [Time] 29.6 s High 11.7-14.9 [facility] International normalized rat io (INR) calculationOrdered By: Karon Corrales on 10-02-2024 INR Coag (Bld) [Relative time] 2.3 {INR} [facility] Prothrombin Time w/INRon INR Coag (PPP) [Relative time] 2.3 {INR} Normal [facility] Comment on above: Order Comment: 411.2 Performed By: #### L 300.3900 ####[facility] [address] [place], [phone] PT Coag (PPP) [Time] 26.0 s High 11.7-14.9 [facility] Comment on above: Order Comment: 411.2 Performed By: #### L 300.3900 ####[facility] [address] [place], [place], [phone] Prothrombin timeOrdered By: Karon Corrales on 10-02-2024 PT Coag (PPP) [Time] 26.0 s High 11.7-14.9 [facility] International normalized rat io (INR) calculationOrdered By: Karon Corrales on 09-30-2024 INR Coag (Bld) [Relative time] 3.1 {INR} [facility] Prothrombin Time w/INRon INR Coag (PPP) [Relative time] 3.1 {INR} Normal [facility] Comment on above: Order Comment: 411.2 Performed By: #### L 300.3900 ####[facility] [address] [place], [place], [phone] PT Coag (PPP) [Time] 32.6 s High 11.7-14.9 [facility] Comment on above: Order Comment: 411.2 Performed By: #### L 300.3900 ####[facility] [address] [place], [place], [phone] Prothrombin timeOrdered By: Karon Corrales on 09-30-2024 PT Coag (PPP) [Time] 32.6 s High 11.7-14.9 [facility] International normalized rat io (INR) calculationOrdered By: Karon Corrales on 09-25-2024 INR Coag (Bld) [Relative time] 2.4 {INR} [facility] Prothrombin Time w/INRon INR Coag (PPP) [Relative time] 2.4 {INR} Normal [facility] Comment on above: Order Comment: 411.2 Performed By: #### L 300.3900 ####[facility] [address] [place], [place], [address] Prothrombin timeOrdered By: Karon Corrales on 09-25-2024 PT Coag (PPP) [Time] 26.7 s High 11.7-14.9 [facility] Comment on above: Order Comment: 411.2 Performed By: #### L 300.3900 ####[facility] [address] [place], [place], [phone] International normalized rat io (INR) calculationOrdered By: Karon Corrales on 09-22-2024 INR Coag (Bld) [Relative time] 2.5 {INR} [facility] Prothrombin Time w/INRon INR Coag (PPP) [Relative time] 2.5 {INR} Normal [facility] Comment on above: Order Comment: 411.2 Performed By: #### L 300.3900 ####[facility] [address] [place], [address] Prothrombin timeOrdered By: Karon Corrales on 09-22-2024 PT Coag (PPP) [Time] 27.4 s High 11.7-14.9 [facility] Comment on above: Order Comment: 411.2 Performed By: #### L 300.3900 ####[facility] [address] [place], [place], [phone] International normalized rat io (INR) calculationOrdered By: Karon Corrales on 09-18-2024 INR Coag (Bld) [Relative time] 2.2 {INR} [facility] Prothrombin Time w/INRon INR Coag (PPP) [Relative time] 2.2 {INR} Normal [facility] Comment on above: Order Comment: 411.2 Performed By: #### L 300.3900 ####[facility] [address] [place], [place], [phone] PT Coag (PPP) [Time] 25.1 s High 11.7-14.9 [facility] Comment on above: Order Comment: 411.2 Performed By: #### L 300.3900 ####[facility] [address] [place], [place], [phone] Prothrombin timeOrdered By: Karon Corrales on 09-18-2024 PT Coag (PPP) [Time] 25.1 s High 11.7-14.9 [facility] International normalized rat io (INR) calculationOrdered By: Carlos Cavazos on 09-15-2024 INR Coag (Bld) [Relative time] 2.4 {INR} [facility] Prothrombin Time w/INRon INR Coag (PPP) [Relative time] 2.4 {INR} Normal [facility] Comment on above: Order Comment: 411-2 Performed By: #### L 300.3900 ####[facility] [address] [place], [place], [phone] Prothrombin timeOrdered By: Carlos Cavazos on 09-15-2024 PT Coag (PPP) [Time] 26.3 s High 11.7-14.9 [facility] Comment on above: Order Comment: 411-2 Performed By: #### L 300.3900 ####[facility] [address] [place], [place], [address] International normalized rat io (INR) calculationOrdered By: Karon Corrales on 09-11-2024 INR Coag (Bld) [Relative time] 2.0 {INR} [facility] Prothrombin Time w/INRon INR Coag (PPP) [Relative time] 2.0 {INR} Normal [facility] Comment on above: Order Comment: 411.2 Performed By: #### L 300.3900 ####[facility] [address] [place], [place], [address] PT Coag (PPP) [Time] 22.9 s High 11.7-14.9 [facility] Comment on above: Order Comment: 411.2 Performed By: #### L 300.3900 ####[facility] [address] [place], [place], [address] Prothrombin timeOrdered By: Karon Corrales on 09-11-2024 PT Coag (PPP) [Time] 22.9 s High 11.7-14.9 [facility] International normalized rat io (INR) calculationOrdered By: Karon Corrales on 09-08-2024 INR Coag (Bld) [Relative time] 2.0 {INR} [facility] Prothrombin Time w/INRon INR Coag (PPP) [Relative time] 2.0 {INR} Normal [facility] Comment on above: Order Comment: 411.2 Performed By: #### L 300.3900 ####[facility] [address] [place], [place], [phone] PT Coag (PPP) [Time] 22.8 s High 11.7-14.9 [facility] Comment on above: Order Comment: 411.2 Performed By: #### L 300.3900 ####[facility] [address] [place], [place], [phone] Prothrombin timeOrdered By: Karon Corrales on 09-08-2024 PT Coag (PPP) [Time] 22.8 s High 11.7-14.9 [facility] International normalized rat io (INR) calculationOrdered By: Carlos Cavazos on 09-04-2024 INR Coag (Bld) [Relative time] 1.7 {INR} [facility] Prothrombin Time w/INRon INR Coag (PPP) [Relative time] 1.7 {INR} Normal [facility] Comment on above: Order Comment: 411-2 Performed By: #### L 300.3900 ####[facility] [address] [place], [address] PT Coag (PPP) [Time] 20.8 s High 11.7-14.9 [facility] Comment on above: Order Comment: 411-2 Performed By: #### L 300.3900 ####[facility] [address] [place], [place], [phone] Prothrombin timeOrdered By: Carlos Cavazos on 09-04-2024 PT Coag (PPP) [Time] 20.8 s High 11.7-14.9 [facility] International normalized rat io (INR) calculationOrdered By: Carlos Cavazos on 09-01-2024 INR Coag (Bld) [Relative time] 2.9 {INR} [facility] Prothrombin Time w/INRon INR Coag (PPP) [Relative time] 2.9 {INR} Normal [facility] Comment on above: Order Comment: 411-2 Performed By: #### L 300.3900 ####[facility] [address] [place], [address] PT Coag (PPP) [Time] 30.7 s High 11.7-14.9 [facility] Comment on above: Order Comment: 411-2 Performed By: #### L 300.3900 ####[facility] [address] [place], [address] Prothrombin timeOrdered By: Carlos Cavazos on 09-01-2024 PT Coag (PPP) [Time] 30.7 s High 11.7-14.9 [facility] International normalized rat io (INR) calculationOrdered By: Carlos Cavazos on 08-28-2024 INR Coag (Bld) [Relative time] 2.4 {INR} [facility] Prothrombin Time w/INRon INR Coag (PPP) [Relative time] 2.4 {INR} Normal [facility] Comment on above: Order Comment: 411-2 Performed By: #### L 300.3900 ####[facility] [address] [place], [address] Prothrombin timeOrdered By: Carlos Cavazos on 08-28-2024 PT Coag (PPP) [Time] 26.7 s High 11.7-14.9 [facility] Comment on above: Order Comment: 411-2 Performed By: #### L 300.3900 ####[facility] [address] [place], [address] International normalized rat io (INR) calculationOrdered By: Karon Corrales on 08-25-2024 INR Coag (Bld) [Relative time] 1.8 {INR} [facility] Prothrombin Time w/INRon INR Coag (PPP) [Relative time] 1.8 {INR} Normal [facility] Comment on above: Order Comment: 411.2 Performed By: #### L 300.3900 ####[facility] [address] [place], [address] PT Coag (PPP) [Time] 21.6 s High 11.7-14.9 [facility] Comment on above: Order Comment: 411.2 Performed By: #### L 300.3900 ####[facility] [address] [place], [place], [phone] Prothrombin timeOrdered By: Karon Corrales on 08-25-2024 PT Coag (PPP) [Time] 21.6 s High 11.7-14.9 [facility] International normalized rat io (INR) calculationOrdered By: Karon Corrales on 08-21-2024 INR Coag (Bld) [Relative time] 1.7 {INR} [facility] PSA, total screeningOrdered By: Karon Corrales on 08-21-2024 Prostate Specific Antigen Screen 0.52 ng/mL 0.02-4.00 [facility] Comment on above: This test was [...] SCREEN 0.52 ng/mL Normal 0.02-4.00 [facility] Comment on above: Order Comment: 411.2 Result Comment: This test was performed using the [employer] tPSAmethod. Measured values of a patient??sample can varydepending on the testing procedure used. PSA valuesdetermined on patient samples by different testingprocedures cannot be used interchangeably. If there is achange in PSA assays while monitoring therapy, sequentialtesting should be performed to confirm baseline values. Performed By: #### L 501.9910, L300.3900 ####[facility] [address], [address] Prothrombin Time w/INRon INR Coag (PPP) [Relative time] 1.7 {INR} Normal [facility] Comment on above: Order Comment: 411.2 Performed By: #### L 501.9910, L300.3900 ####[facility] [address] [place], [address] Prothrombin timeOrdered By: Karon Corrales on 08-21-2024 PT Coag (PPP) [Time] 20.1 s High 11.7-14.9 [facility] Comment on above: Order Comment: 411.2 Performed By: #### L 501.9910, L300.3900 ####[facility] [address] [place], [address] International normalized rat io (INR) calculationOrdered By: Karon Corrales on 08-18-2024 INR Coag (Bld) [Relative time] 3.0 {INR} [facility] Prothrombin Time w/INRon INR Coag (PPP) [Relative time] 3.0 {INR} Normal [facility] Comment on above: Order Comment: 411.2 Performed By: #### L 300.3900 ####[facility] [address] [place], [place], [phone] PT Coag (PPP) [Time] 31.4 s High 11.7-14.9 [facility] Comment on above: Order Comment: 411.2 Performed By: #### L 300.3900 ####[facility] [address] [place], [place], [phone] Prothrombin timeOrdered By: Karon Corrales on 08-18-2024 PT Coag (PPP) [Time] 31.4 s High 11.7-14.9 [facility] International normalized rat io (INR) calculationOrdered By: Karon Corrales on 08-14-2024 INR Coag (Bld) [Relative time] 2.4 {INR} [facility] Prothrombin Time w/INRon INR Coag (PPP) [Relative time] 2.4 {INR} Normal [facility] Comment on above: Order Comment: 411.2 Performed By: #### L 300.3900 ####[facility] [address] [place], [place], [phone] PT Coag (PPP) [Time] 26.6 s High 11.7-14.9 [facility] Comment on above: Order Comment: 411.2 Performed By: #### L [id number] ####[facility] [address] [place], [place], [phone] Prothrombin timeOrdered By: Karon Corrales on 08-14-2024 PT Coag (PPP) [Time] 26.6 s High 11.7-14.9 [facility] International normalized rat io (INR) calculationOrdered By: Karon Corrales on 08-11-2024 INR Coag (Bld) [Relative time] 3.1 {INR} [facility] Prothrombin Time w/INRon INR Coag (PPP) [Relative time] 3.1 {INR} Normal [facility] Comment on above: Order Comment: 411.2 Performed By: #### L 300.3903 ####[facility] [address] [place], [address] PT Coag (PPP) [Time] 32.4 s High 11.7-14.9 [facility] Comment on above: Order Comment: 411.2 Performed By: #### L 300.3900 ####[facility] [address] [place], [address] Prothrombin timeOrdered By: Karon Corrales on 08-11-2024 PT Coag (PPP) [Time] 32.4 s High 11.7-14.9 [facility] International normalized rat io (INR) calculationOrdered By: Carlos Cavazos on 08-07-2024 INR Coag (Bld) [Relative time] 2.8 {INR} [facility] Prothrombin Time w/INRon INR Coag (PPP) [Relative time] 2.8 {INR} Normal [facility] Comment on above: Order Comment: 411-2 Performed By: #### L 300.3900 ####[facility] [address] [place], [address] PT Coag (PPP) [Time] 30.3 s High 11.7-14.9 [facility] Comment on above: Order Comment: 411-2 Performed By: #### L 300.3900 ####[facility] [address] [place], [address] Prothrombin timeOrdered By: Carlos Cavazos on 08-07-2024 PT Coag (PPP) [Time] 30.3 s High 11.7-14.9 [facility] International normalized rat io (INR) calculationOrdered By: Carlos Cavazos on 08-04-2024 INR Coag (Bld) [Relative time] 1.9 {INR} [facility] Prothrombin Time w/INRon INR Coag (PPP) [Relative time] 1.9 {INR} Normal [facility] Comment on above: Order Comment: 411-2 Performed By: #### L 300.3900 ####[facility] [address] [place], [address]([phone] PT Coag (PPP) [Time] 22.1 s High 11.7-14.9 [facility] Comment on above: Order Comment: 411-2 Performed By: #### L 300.3900 ####[facility] [address] [place], [address] Prothrombin timeOrdered By: Carlos Cavazos on 08-04-2024 PT Coag (PPP) [Time] 22.1 s High 11.7-14.9 [facility] International normalized rat io (INR) calculationOrdered By: Karon Corrales on 07-31-2024 INR Coag (Bld) [Relative time] 3.2 {INR} [facility] Prothrombin Time w/INRon INR Coag (PPP) [Relative time] 3.2 {INR} Normal [facility] Comment on above: Order Comment: 411.2 Performed By: #### L 300.3900 ####[facility] [address] [place], [address] PT Coag (PPP) [Time] 33.5 s High 11.7-14.9 [facility] Comment on above: Order Comment: 411.2 Performed By: #### L 300.3900 ####[facility] [address] [place], [address] Prothrombin timeOrdered By: Karon Corrales on 07-31-2024 PT Coag (PPP) [Time] 33.5 s High 11.7-14.9 [facility] International normalized rat io (INR) calculationOrdered By: Karon Corrales on 07-28-2024 INR Coag (Bld) [Relative time] 2.7 {INR} [facility] Prothrombin Time w/INRon INR Coag (PPP) [Relative time] 2.7 {INR} Normal [facility] Comment on above: Order Comment: 411.2 Performed By: #### L 300.3900 ####[facility] [address] [place], [address] PT Coag (PPP) [Time] 29.6 s High 11.7-14.9 [facility] Comment on above: Order Comment: 411.2 Performed By: #### L 300.3900 ####[facility] [address] [place], [address] Prothrombin timeOrdered By: Karon Corrales on 07-28-2024 PT Coag (PPP) [Time] 29.6 s High 11.7-14.9 [facility] International normalized rat io (INR) calculationOrdered By: Carlos Cavazos on 07-25-2024 INR Coag (Bld) [Relative time] 3.0 {INR} [facility] Prothrombin Time w/INRon INR Coag (PPP) [Relative time] 3.0 {INR} Normal [facility] Comment on above: Order Comment: 411-2 Performed By: #### L 300.3900 ####[facility] [address] [place], [address] Prothrombin timeOrdered By: Carlos Cavazos on 07-25-2024 PT Coag (PPP) [Time] 32.1 s High 11.7-14.9 [facility] Comment on above: Order Comment: 411-2 Performed By: #### L 300.3900 ####[facility] [address] [place], [address] International normalized rat io (INR) calculationOrdered By: Karon Corrales on 07-24-2024 INR Coag (Bld) [Relative time] 3.4 {INR} [facility] Prothrombin Time w/INRon INR Coag (PPP) [Relative time] 3.4 {INR} Normal [facility] Comment on above: Order Comment: 411.2 Performed By: #### L 300.3900 ####[facility] [address] [place], [place], [phone] Prothrombin timeOrdered By: Karon Corrales on 07-24-2024 PT Coag (PPP) [Time] 35.4 s High 11.7-14.9 [facility] Comment on above: Order Comment: 411.2 Performed By: #### L 300.3900 ####[facility] [address] [place], [place], [phone] International normalized rat io (INR) calculationOrdered By: Karon Corrales on 07-21-2024 INR Coag (Bld) [Relative time] 1.6 {INR} [facility] Prothrombin Time w/INRon INR Coag (PPP) [Relative time] 1.6 {INR} Normal [facility] Comment on above: Order Comment: 411.2 Performed By: #### L 300.3900 ####[facility] [address] [place], [place], [address] PT Coag (PPP) [Time] 19.6 s High 11.7-14.9 [facility] Comment on above: Order Comment: 411.2 Performed By: #### L 300.3900 ####[facility] [address] [place], [place], [phone] Prothrombin timeOrdered By: Karon Corrales on 07-21-2024 PT Coag (PPP) [Time] 19.6 s High 11.7-14.9 [facility] International normalized rat io (INR) calculationOrdered By: Karon Corrales on 07-17-2024 INR Coag (Bld) [Relative time] 2.9 {INR} [facility] Prothrombin Time w/INRon INR Coag (PPP) [Relative time] 2.9 {INR} Normal [facility] Comment on above: Order Comment: 411.2 Performed By: #### L 300.3900 ####[facility] [address] [place], [address] PT Coag (PPP) [Time] 31.1 s High 11.7-14.9 [facility] Comment on above: Order Comment: 411.2 Performed By: #### L 300.3900 ####[facility] [address] [place], [address] Prothrombin timeOrdered By: Karon Corrales on 07-17-2024 PT Coag (PPP) [Time] 31.1 s High 11.7-14.9 [facility] International normalized rat io (INR) calculationOrdered By: Carlos Cavazos on 07-14-2024 INR Coag (Bld) [Relative time] 2.5 {INR} [facility] Prothrombin Time w/INRon INR Coag (PPP) [Relative time] 2.5 {INR} Normal [facility] Comment on above: Order Comment: 411-2 Performed By: #### L 300.3900 ####[facility] [address] [place], [address] PT Coag (PPP) [Time] 27.5 s High 11.7-14.9 [facility] Comment on above: Order Comment: 411-2 Performed By: #### L 300.3900 ####[facility] [address] [place], [address] Prothrombin timeOrdered By: Carlos Cavazos on 07-14-2024 PT Coag (PPP) [Time] 27.5 s High 11.7-14.9 [facility] International normalized rat io (INR) calculationOrdered By: Carlos Cavazos on 07-11-2024 INR Coag (Bld) [Relative time] 2.5 {INR} [facility] Prothrombin Time w/INRon INR Coag (PPP) [Relative time] 2.5 {INR} Normal [facility] Comment on above: Performed By: #### L 300.3900 ####[facility] [address] [place], [address] PT Coag (PPP) [Time] 27.7 s High 11.7-14.9 [facility] Comment on above: Performed By: #### L 300.3900 ####[facility] [address] [place], [address] Prothrombin timeOrdered By: Carlos Cavazos on 07-11-2024 PT Coag (PPP) [Time] 27.7 s High 11.7-14.9 [facility] Prothrombin Time w/INRon INR Normal [facility] Comment on above: Order Comment: 411.2 Result Comment: QNS TUBE NOT FILLED Performed By: #### L 300.3900 ####[facility] [address] [place], [address] PROTIME Normal 11.7-14.9 [facility] Comment on above: Order Comment: 411.2 Result Comment: QNS TUBE NOT FILLED Performed By: #### L 300.3900 ####[facility] [address] [place], [address] International normalized rat io (INR) calculationOrdered By: Kvng Crisostomo on 07-07-2024 INR Coag (Bld) [Relative time] 2.5 {INR} [facility] Prothrombin Time w/INRon INR Coag (PPP) [Relative time] 2.5 {INR} Normal [facility] Comment on above: Order Comment: 411.2 Performed By: #### L 300.3900 ####[facility] [address] [place], [address] PT Coag (PPP) [Time] 27.2 s High 11.7-14.9 [facility] Comment on above: Order Comment: 411.2 Performed By: #### L 300.3900 ####[facility] [address] [place], [place], [id number] Prothrombin timeOrdered By: Kvng Crisostomo on 07-07-2024 PT Coag (PPP) [Time] 27.2 s High 11.7-14.9 [facility] International normalized rat io (INR) calculationOrdered By: Kvng Crisostomo on 07-03-2024 INR Coag (Bld) [Relative time] 2.5 {INR} [facility] Prothrombin Time w/INRon INR Coag (PPP) [Relative time] 2.5 {INR} Normal [facility] Comment on above: Order Comment: 411.2 Performed By: #### L 300.3900 ####[facility] [address] [place], [place], [phone]) PT Coag (PPP) [Time] 27.2 s High 11.7-14.9 [facility] Comment on above: Order Comment: 411.2 Performed By: #### L 300.3900 ####[facility] [address] [place], [place], [address] Prothrombin timeOrdered By: Kvng Crisostomo on 07-03-2024 PT Coag (PPP) [Time] 27.2 s High 11.7-14.9 [facility] International normalized rat io (INR) calculationOrdered By: Kvng Crisostomo on 06-30-2024 INR Coag (Bld) [Relative time] 2.4 {INR} [facility] Prothrombin Time w/INRon INR Coag (PPP) [Relative time] 2.4 {INR} Normal [facility] Comment on above: Order Comment: 411.2 Performed By: #### L 300.3900 ####[facility] [address] [place], [place], [phone]) PT Coag (PPP) [Time] 26.8 s High 11.7-14.9 [facility] Comment on above: Order Comment: 411.2 Performed By: #### L 300.3900 ####[facility] [address] [place], [place], [phone] Prothrombin timeOrdered By: Kvng Crisostomo on 06-30-2024 PT Coag (PPP) [Time] 26.8 s High 11.7-14.9 [facility] International normalized rat io (INR) calculationOrdered By: Kvng Crisostomo on 06-26-2024 INR Coag (Bld) [Relative time] 2.5 {INR} [facility] Prothrombin Time w/INRon INR Coag (PPP) [Relative time] 2.5 {INR} Normal [facility] Comment on above: Order Comment: 411.2 Performed By: #### L 300.3900 ####[facility] [address] [place], [address] PT Coag (PPP) [Time] 27.5 s High 11.7-14.9 [facility] Comment on above: Order Comment: 411.2 Performed By: #### L 300.3900 ####[facility] [address] [place], [address] Prothrombin timeOrdered By: Kvng Crisostomo on 06-26-2024 PT Coag (PPP) [Time] 27.5 s High 11.7-14.9 [facility] International normalized rat io (INR) calculationOrdered By: Carlos Cavazos on 06-23-2024 INR Coag (Bld) [Relative time] 2.8 {INR} [facility] Prothrombin Time w/INRon INR Coag (PPP) [Relative time] 2.8 {INR} Normal [facility] Comment on above: Order Comment: 411-2 Performed By: #### L 300.3900 ####[facility] [address] [place], [address] PT Coag (PPP) [Time] 29.7 s High 11.7-14.9 [facility] Comment on above: Order Comment: 411-2 Performed By: #### L 300.3900 ####[facility] [address] [place], [place], [phone] Prothrombin timeOrdered By: Carlos Cavazos on 06-23-2024 PT Coag (PPP) [Time] 29.7 s High 11.7-14.9 [facility] International normalized rat io (INR) calculationOrdered By: Kvng Crisostomo on 06-19-2024 INR Coag (Bld) [Relative time] 2.6 {INR} [facility] Prothrombin Time w/INRon INR Coag (PPP) [Relative time] 2.6 {INR} Normal [facility] Comment on above: Order Comment: 411.2 Performed By: #### L 300.3900 ####[facility] [address] [place], [address] PT Coag (PPP) [Time] 28.6 s High 11.7-14.9 [facility] Comment on above: Order Comment: 411.2 Performed By: #### L 300.3900 ####[facility] [address] [place], [address] Prothrombin timeOrdered By: Kvng Crisostomo on 06-19-2024 PT Coag (PPP) [Time] 28.6 s High 11.7-14.9 [facility] International normalized rat io (INR) calculationOrdered By: Kvng Crisostomo on 06-16-2024 INR Coag (Bld) [Relative time] 2.5 {INR} [facility] Prothrombin Time w/INRon INR Coag (PPP) [Relative time] 2.5 {INR} Normal [facility] Comment on above: Order Comment: 411.2 Performed By: #### L 300.3900 ####[facility] [address] [place], [address] PT Coag (PPP) [Time] 27.3 s High 11.7-14.9 [facility] Comment on above: Order Comment: 411.2 Performed By: #### L 300.3900 ####[facility] [address] [place], [place], [phone] Prothrombin timeOrdered By: Kvng Crisostomo on 06-16-2024 PT Coag (PPP) [Time] 27.3 s High 11.7-14.9 [facility] International normalized rat io (INR) calculationOrdered By: Kvng Crisostomo on 06-12-2024 INR Coag (Bld) [Relative time] 2.1 {INR} [facility] Prothrombin Time w/INRon INR Coag (PPP) [Relative time] 2.1 {INR} Normal [facility] Comment on above: Order Comment: 411.2 Performed By: #### L 300.3900 ####[facility] [address] [place], [place], [phone] PT Coag (PPP) [Time] 24.0 s High 11.7-14.9 [facility] Comment on above: Order Comment: 411.2 Performed By: #### L 300.3900 ####[facility] [address] [place], [place], [phone] Prothrombin timeOrdered By: Kvng Crisostomo on 06-12-2024 PT Coag (PPP) [Time] 24.0 s High 11.7-14.9 [facility] International normalized rat io (INR) calculationOrdered By: Carlos Cavazos on 06-09-2024 INR Coag (Bld) [Relative time] 1.5 {INR} [facility] Prothrombin Time w/INRon INR Coag (PPP) [Relative time] 1.5 {INR} Normal [facility] Comment on above: Order Comment: 411-2 Performed By: #### L 300.3900 ####[facility] [address] [place], [address] PT Coag (PPP) [Time] 18.0 s High 11.7-14.9 [facility] Comment on above: Order Comment: 411-2 Performed By: #### L 300.3900 ####[facility] [address], [address] Prothrombin timeOrdered By: Carlos Cavazos on 06-09-2024 PT Coag (PPP) [Time] 18.0 s High 11.7-14.9 [facility] International normalized rat io (INR) calculationOrdered By: Kvng Crisostomo on 06-05-2024 INR Coag (Bld) [Relative time] 2.8 {INR} [facility] Prothrombin Time w/INRon INR Coag (PPP) [Relative time] 2.8 {INR} Normal [facility] Comment on above: Order Comment: 411.2 Performed By: #### L 300.3900 ####[facility] [address], [address] PT Coag (PPP) [Time] 30.3 s High 11.7-14.9 [facility] Comment on above: Order Comment: 411.2 Performed By: #### L 300.3900 ####[facility] [address] [place], [address] Prothrombin timeOrdered By: Kvng Crisostomo on 06-05-2024 PT Coag (PPP) [Time] 30.3 s High 11.7-14.9 [facility] International normalized rat io (INR) calculationOrdered By: Kvng Crisostomo on 06-02-2024 INR Coag (Bld) [Relative time] 2.6 {INR} [facility] Prothrombin Time w/INRon INR Coag (PPP) [Relative time] 2.6 {INR} Normal [facility] Comment on above: Order Comment: 411.2 Performed By: #### L 300.3900 ####[facility] [address], [address] PT Coag (PPP) [Time] 28.6 s High 11.7-14.9 [facility] Comment on above: Order Comment: 411.2 Performed By: #### L 300.3900 ####[facility] [address] [place], [place], [phone] Prothrombin timeOrdered By: Kvng Crisostomo on 06-02-2024 PT Coag (PPP) [Time] 28.6 s High 11.7-14.9 [facility] International normalized rat io (INR) calculationOrdered By: Kvng Crisostomo on 05-29-2024 INR Coag (Bld) [Relative time] 2.5 {INR} [facility] Prothrombin Time w/INRon INR Coag (PPP) [Relative time] 2.5 {INR} Normal [facility] Comment on above: Order Comment: 411.2 Performed By: #### L 300.3900 ####[facility] [address] [place], [place], [phone] PT Coag (PPP) [Time] 27.7 s High 11.7-14.9 [facility] Comment on above: Order Comment: 411.2 Performed By: #### L 300.3900 ####[facility] [address] [place], [place], [phone] Prothrombin timeOrdered By: Kvng Crisostomo on 05-29-2024 PT Coag (PPP) [Time] 27.7 s High 11.7-14.9 [facility] International normalized rat io (INR) calculationOrdered By: Carlos Cavazos on 05-26-2024 INR Coag (Bld) [Relative time] 2.2 {INR} [facility] Prothrombin Time w/INRon INR Coag (PPP) [Relative time] 2.2 {INR} Normal [facility] Comment on above: Order Comment: 411-2 Performed By: #### L 300.3900 ####[facility] [address] [place], [address] PT Coag (PPP) [Time] 24.5 s High 11.7-14.9 [facility] Comment on above: Order Comment: 411-2 Performed By: #### L 300.3900 ####[facility] [address] [place], [address] Prothrombin timeOrdered By: Carlos Cavazos on 05-26-2024 PT Coag (PPP) [Time] 24.5 s High 11.7-14.9 [facility] International normalized rat io (INR) calculationOrdered By: Kvng Crisostomo on 05-22-2024 INR Coag (Bld) [Relative time] 2.8 {INR} [facility] Prothrombin Time w/INRon INR Coag (PPP) [Relative time] 2.8 {INR} Normal [facility] Comment on above: Order Comment: 411.2 Performed By: #### L 300.3900 ####[facility] [address] [place], [address] PT Coag (PPP) [Time] 30.3 s High 11.7-14.9 [facility] Comment on above: Order Comment: 411.2 Performed By: #### L 300.3900 ####[facility] [address] [place], [address] Prothrombin timeOrdered By: Kvng Crisostomo on 05-22-2024 PT Coag (PPP) [Time] 30.3 s High 11.7-14.9 [facility] International normalized rat io (INR) calculationOrdered By: Kvng Crisostomo on 05-20-2024 INR Coag (Bld) [Relative time] 4.0 {INR} High [facility] Comment on above: CRITICAL VALUE CASEY D TO [id number]/14/25 0828 Diana Mattson.RESULTS READ BACK BY SAME. Prothrombin Time w/INRon INR Coag (PPP) [Relative time] 4.0 {INR} Invalid Interpretation Code [facility] Comment on above: Order Comment: 411.2 Result Comment: CRIT ICAL VALUE CALLED TO [id number]/14/25 0828 Diana Bernalzano.RESULTS READ BACK BY SAME. Performed By: #### L 300.3900 ####[facility] [address] [place], [address] PT Coag (PPP) [Time] 39.9 s High 11.7-14.9 [facility] Comment on above: Order Comment: 411.2 Performed By: #### L 300.3900 ####[facility] [address] [place], [address] Prothrombin timeOrdered By: Kvng Crisostomo on 05-20-2024 PT Coag (PPP) [Time] 39.9 s High 11.7-14.9 [facility] International normalized rat io (INR) calculationOrdered By: Kvng Crisostomo on 05-19-2024 INR Coag (Bld) [Relative time] 3.4 {INR} [facility] Prothrombin Time w/INRon INR Coag (PPP) [Relative time] 3.4 {INR} Normal [facility] Comment on above: Order Comment: 411.2 Performed By: #### L 300.3900 ####[facility] [address] [place], [address] PT Coag (PPP) [Time] 35.4 s High 11.7-14.9 [facility] Comment on above: Order Comment: 411.2 Performed By: #### L 300.3900 ####[facility] [address] [place], [address] Prothrombin timeOrdered By: Kvng Crisostomo on 05-19-2024 PT Coag (PPP) [Time] 35.4 s High 11.7-14.9 [facility] International normalized rat io (INR) calculationOrdered By: Kvng Crisostomo on 05-15-2024 INR Coag (Bld) [Relative time] 2.6 {INR} [facility] Prothrombin Time w/INRon INR Coag (PPP) [Relative time] 2.6 {INR} Normal [facility] Comment on above: Order Comment: 411.2 Performed By: #### L 300.3900 ####[facility] [address] [place], [address] PT Coag (PPP) [Time] 28.7 s High 11.7-14.9 [facility] Comment on above: Order Comment: 411.2 Performed By: #### L 300.3900 ####[facility] [address] [place], [address] Prothrombin timeOrdered By: Kvng Crisostomo on 05-15-2024 PT Coag (PPP) [Time] 28.7 s High 11.7-14.9 [facility] International normalized rat io (INR) calculationOrdered By: Carlos Cavazos on 05-12-2024 INR Coag (Bld) [Relative time] 2.1 {INR} [facility] Prothrombin Time w/INRon INR Coag (PPP) [Relative time] 2.1 {INR} Normal [facility] Comment on above: Order Comment: 411-2 Performed By: #### L 300.3900 ####[facility] [address] [place], [address] PT Coag (PPP) [Time] 24.1 s High 11.7-14.9 [facility] Comment on above: Order Comment: 411-2 Performed By: #### L 300.3900 ####[facility] [address] [place], [address] Prothrombin timeOrdered By: Carlos Cavazos on 05-12-2024 PT Coag (PPP) [Time] 24.1 s High 11.7-14.9 [facility] International normalized rat io (INR) calculationOrdered By: Kvng Crisostomo on 05-09-2024 INR Coag (Bld) [Relative time] 3.4 {INR} [facility] Prothrombin Time w/INRon INR Coag (PPP) [Relative time] 3.4 {INR} Normal [facility] Comment on above: Order Comment: 411.2 Performed By: #### L 300.3900 ####[facility] [address] [place], [address] PT Coag (PPP) [Time] 35.4 s High 11.7-14.9 [facility] Comment on above: Order Comment: 411.2 Performed By: #### L 300.3900 ####[facility] [address] [place], [address] Prothrombin timeOrdered By: Kvng Crisostomo on 05-09-2024 PT Coag (PPP) [Time] 35.4 s High 11.7-14.9 [facility] International normalized rat io (INR) calculationOrdered By: Kvng Crisostomo on 05-08-2024 INR Coag (Bld) [Relative time] 4.1 {INR} High [facility] Comment on above: CRITICAL VALUE CASEY D TO [facility]05/08/24 09 Karen Jamison.RESULTS READ BACK BY SAME. Prothrombin Time w/INRon INR Coag (PPP) [Relative time] 4.1 {INR} Invalid Interpretation Code [facility] Comment on above: Order Comment: 411.2 Result Comment: CRIT ICAL VALUE CALLED TO [facility]05/08/24 09 Karen Jamison.RESULTS READ BACK BY SAME. Performed By: #### L 300.3900 ####[facility] [address] [place], [address] PT Coag (PPP) [Time] 40.8 s High 11.7-14.9 [facility] Comment on above: Order Comment: 411.2 Performed By: #### L 300.3900 ####[facility] [address] [place], [address] Prothrombin timeOrdered By: Kvng Crisostomo on 05-08-2024 PT Coag (PPP) [Time] 40.8 s High 11.7-14.9 [facility] International normalized rat io (INR) calculationOrdered By: Kvng Crisostomo on 05-05-2024 INR Coag (Bld) [Relative time] 3.2 {INR} [facility] Prothrombin Time w/INRon INR Coag (PPP) [Relative time] 3.2 {INR} Normal [facility] Comment on above: Order Comment: 411.2 Performed By: #### L 300.3900 ####[facility] [address] [facility] [phone] PT Coag (PPP) [Time] 32.5 s High 11.7-14.9 [facility] Comment on above: Order Comment: 411.2 Performed By: #### L 300.3900 ####[facility] [address] [facility] [address] Prothrombin timeOrdered By: Kvng Crisostomo on 05-05-2024 PT Coag (PPP) [Time] 32.5 s High 11.7-14.9 [facility] International normalized rat io (INR) calculationOrdered By: Kvng Crisostomo on 05-01-2024 INR Coag (Bld) [Relative time] 3.1 {INR} [facility] Prothrombin Time w/INRon INR Coag (PPP) [Relative time] 3.1 {INR} Normal [facility] Comment on above: Order Comment: 411.2 Performed By: #### L 300.3900 ####[facility] [address] [facility] [address] PT Coag (PPP) [Time] 31.9 s High 11.7-14.9 [facility] Comment on above: Order Comment: 411.2 Performed By: #### L 300.3900 ####[facility] [address] [facility] [address] Prothrombin timeOrdered By: Kvng Crisostomo on 05-01-2024 PT Coag (PPP) [Time] 31.9 s High 11.7-14.9 [facility] International normalized rat io (INR) calculationOrdered By: Carlos Cavazos on 04-28-2024 INR Coag (Bld) [Relative time] 2.6 {INR} [facility] Prothrombin Time w/INRon INR Coag (PPP) [Relative time] 2.6 {INR} Normal [facility] Comment on above: Order Comment: 411-2 Performed By: #### L 300.3900 ####[facility] [address] [place], [place], [phone] PT Coag (PPP) [Time] 27.3 s High 11.7-14.9 [facility] Comment on above: Order Comment: 411-2 Performed By: #### L 300.3900 ####[facility] [address] [place], [address] Prothrombin timeOrdered By: Carlos Cavazos on 04-28-2024 PT Coag (PPP) [Time] 27.3 s High 11.7-14.9 [facility] International normalized rat io (INR) calculationOrdered By: Kvng Crisostomo on 04-24-2024 INR Coag (Bld) [Relative time] 3.6 {INR} [facility] Prothrombin Time w/INRon INR Coag (PPP) [Relative time] 3.6 {INR} Normal [facility] Comment on above: Order Comment: 411.2 Performed By: #### L 300.3900 ####[facility] [address] [place], [address] PT Coag (PPP) [Time] 35.6 s High 11.7-14.9 [facility] Comment on above: Order Comment: 411.2 Performed By: #### L 300.3900 ####[facility] [address] [place], [place], [phone] Prothrombin timeOrdered By: Kvng Crisostomo on 04-24-2024 PT Coag (PPP) [Time] 35.6 s High 11.7-14.9 [facility] International normalized rat io (INR) calculationOrdered By: Carlos Cavazos on 04-21-2024 INR Coag (Bld) [Relative time] 2.8 {INR} [facility] Prothrombin Time w/INRon INR Coag (PPP) [Relative time] 2.8 {INR} Normal [facility] Comment on above: Order Comment: 411-2 Performed By: #### L 300.3900 ####[facility] [address] [place], [place], [address] PT Coag (PPP) [Time] 29.4 s High 11.7-14.9 [facility] Comment on above: Order Comment: 411-2 Performed By: #### L 300.3900 ####[facility] [address] [place], [place], [address] Prothrombin timeOrdered By: Carlos Cavazos on 04-21-2024 PT Coag (PPP) [Time] 29.4 s High 11.7-14.9 [facility] International normalized rat io (INR) calculationOrdered By: Kvng Crisostomo on 04-17-2024 INR Coag (Bld) [Relative time] 3.1 {INR} [facility] Prothrombin Time w/INRon INR Coag (PPP) [Relative time] 3.1 {INR} Normal [facility] Comment on above: Order Comment: 411.2 Performed By: #### L 300.3900 ####[facility] [address] [place], [place], [address] Prothrombin timeOrdered By: Kvng Crisostomo on 04-17-2024 PT Coag (PPP) [Time] 31.3 s High 11.7-14.9 [facility] Comment on above: Order Comment: 411.2 Performed By: #### L 300.3900 ####[facility] [address] [place], [place], [phone] International normalized rat io (INR) calculationOrdered By: Kvng Crisostomo on 04-14-2024 INR Coag (Bld) [Relative time] 3.3 {INR} [facility] Prothrombin Time w/INRon INR Coag (PPP) [Relative time] 3.3 {INR} Normal [facility] Comment on above: Order Comment: 411.2 Performed By: #### L 300.3900 ####[facility] [address] [place], [place], [phone] PT Coag (PPP) [Time] 33.2 s High 11.7-14.9 [facility] Comment on above: Order Comment: 411.2 Performed By: #### L 300.3900 ####[facility] [address] [place], [place], [phone] Prothrombin timeOrdered By: Kvng Crisostomo on 04-14-2024 PT Coag (PPP) [Time] 33.2 s High 11.7-14.9 [facility] normalized rat io (INR) calculationOrdered By: Kvng Crisostomo on 04-10-2024 INR Coag (Bld) [Relative time] 2.8 {INR} [facility] Prothrombin Time w/INRon INR Coag (PPP) [Relative time] 2.8 {INR} Normal [facility] Comment on above: Order Comment: 411.2 Performed By: #### L 300.3900 ####[facility] [address] [place], [address] PT Coag (PPP) [Time] 29.2 s High 11.7-14.9 [facility] Comment on above: Order Comment: 411.2 Performed By: #### L 300.3900 ####[facility] [address] [facility] [address] Prothrombin timeOrdered By: Kvng Crisostomo on 04-10-2024 PT Coag (PPP) [Time] 29.2 s High 11.7-14.9 [facility] normalized rat io (INR) calculationOrdered By: Carlos Cavazos on 04-07-2024 INR Coag (Bld) [Relative time] 2.7 {INR} [facility] Prothrombin Time w/INRon INR Coag (PPP) [Relative time] 2.7 {INR} Normal [facility] Comment on above: Order Comment: 411-2 Performed By: #### L 300.3900 ####[facility] [address] [place], [address] PT Coag (PPP) [Time] 28.1 s High 11.7-14.9 [facility] Comment on above: Order Comment: 411-2 Performed By: #### L 300.3900 ####[facility] [address], [address] Prothrombin timeOrdered By: Carlos Cavazos on 04-07-2024 PT Coag (PPP) [Time] 28.1 s High 11.7-14.9 [facility] normalized rat io (INR) calculationOrdered By: Kvng Crisostomo on 04-04-2024 INR Coag (Bld) [Relative time] 2.8 {INR} [facility] Prothrombin Time w/INRon INR Coag (PPP) [Relative time] 2.8 {INR} Normal [facility] Comment on above: Order Comment: 411.2 Performed By: #### L 300.3900 ####[facility] [address] [place], [phone]) PT Coag (PPP) [Time] 28.9 s High 11.7-14.9 [facility] Comment on above: Order Comment: 411.2 Performed By: #### L 300.3900 ####[facility] [address] [place], [place], [phone] Prothrombin timeOrdered By: Kvng Crisostomo on 04-04-2024 PT Coag (PPP) [Time] 28.9 s High 11.7-14.9 [facility] normalized rat io (INR) calculationOrdered By: Carlos Cavazos on 03-31-2024 INR Coag (Bld) [Relative time] 2.6 {INR} [facility] Prothrombin Time w/INRon INR Coag (PPP) [Relative time] 2.6 {INR} Normal [facility] Comment on above: Order Comment: 411-2 Performed By: #### L 300.3900 ####[facility] [address] [place], [place], [phone] PT Coag (PPP) [Time] 27.3 s High 11.7-14.9 [facility] Comment on above: Order Comment: 411-2 Performed By: #### L 300.3900 ####[facility] [address] [place], [address] Prothrombin timeOrdered By: Carlos Cavazos on 03-31-2024 PT Coag (PPP) [Time] 27.3 s High 11.7-14.9 [facility] normalized rat io (INR) calculationOrdered By: [employer] [facility] [employer] on 03-27-2024 INR Coag (Bld) [Relative time] 2.2 {INR} [facility] Prothrombin Time w/INRon INR Coag (PPP) [Relative time] 2.2 {INR} Normal [facility] Comment on above: Order Comment: 411.2 Performed By: #### L 300.3900 ####[facility] [address] [place], [address] PT Coag (PPP) [Time] 24.3 s High 11.7-14.9 [facility] Comment on above: Order Comment: 411.2 Performed By: #### L 300.3900 ####[facility] [address] [place], [address] Prothrombin timeOrdered By: [facility] [employer] on 03-27-2024 PT Coag (PPP) [Time] 24.3 s High 11.7-14.9 [facility] normalized rat io (INR) calculationOrdered By: Kvng Crisostomo on 03-24-2024 INR Coag (Bld) [Relative time] 1.8 {INR} [facility] Prothrombin Time w/INRon INR Coag (PPP) [Relative time] 1.8 {INR} Normal [facility] Comment on above: Order Comment: 411.2 Performed By: #### L 300.3900 ####[facility] [address] [place], [address] PT Coag (PPP) [Time] 20.7 s High 11.7-14.9 [facility] Comment on above: Order Comment: 411.2 Performed By: #### L 300.3900 ####[facility] [address] [place], [address] Prothrombin timeOrdered By: Kvng Crisostomo on 03-24-2024 PT Coag (PPP) [Time] 20.7 s High 11.7-14.9 [facility] normalized rat io (INR) calculationOrdered By: [facility] [employer] on 03-20-2024 INR Coag (Bld) [Relative time] 1.8 {INR} [facility] Prothrombin Time w/INRon INR Coag (PPP) [Relative time] 1.8 {INR} Normal [facility] Comment on above: Order Comment: 411.2 Performed By: #### L 300.3900 ####[facility] [address] [place], [address] PT Coag (PPP) [Time] 20.9 s High 11.7-14.9 [facility] Comment on above: Order Comment: 411.2 Performed By: #### L 300.3900 ####[facility] [address] [place], [address] Prothrombin timeOrdered By: [facility] [employer] on 03-20-2024 PT Coag (PPP) [Time] 20.9 s High 11.7-14.9 [facility] normalized rat io (INR) calculationOrdered By: Kvng Crisostomo on 03-19-2024 INR Coag (Bld) [Relative time] 2.4 {INR} [facility] Prothrombin Time w/INRon INR Coag (PPP) [Relative time] 2.4 {INR} Normal [facility] Comment on above: Order Comment: 411.2 Performed By: #### L 300.3900 ####[facility] [address] [place], [address] PT Coag (PPP) [Time] 26.4 s High 11.7-14.9 [facility] Comment on above: Order Comment: 411.2 Performed By: #### L 300.3900 ####[facility] [address] [place], [address] Prothrombin timeOrdered By: Kvng Crisostomo on 03-19-2024 PT Coag (PPP) [Time] 26.4 s High 11.7-14.9 [facility] normalized rat io (INR) calculationOrdered By: [facility] [employer] on 03-18-2024 INR Coag (Bld) [Relative time] 3.2 {INR} [facility] Prothrombin Time w/INRon INR Coag (PPP) [Relative time] 3.2 {INR} Normal [facility] Comment on above: Order Comment: 411.2 Performed By: #### L 300.3900 ####[facility] [address] [place], [address] PT Coag (PPP) [Time] 32.3 s High 11.7-14.9 [facility] Comment on above: Order Comment: 411.2 Performed By: #### L 300.3900 ####[facility] [address] [place], [place], [phone] Prothrombin timeOrdered By: [facility] [employer] on 03-18-2024 PT Coag (PPP) [Time] 32.3 s High 11.7-14.9 [facility] normalized rat io (INR) calculationOrdered By: [facility] [employer] on 03-17-2024 INR Coag (Bld) [Relative time] 3.6 {INR} [facility] Prothrombin Time w/INRon INR Coag (PPP) [Relative time] 3.6 {INR} Normal [facility] Comment on above: Order Comment: 411.2 Performed By: #### L 300.3900 ####[facility] [address] [place], [address] PT Coag (PPP) [Time] 35.7 s High 11.7-14.9 [facility] Comment on above: Order Comment: 411.2 Performed By: #### L 300.3900 ####[facility] [address] [place], [address] Prothrombin timeOrdered By: [facility] [employer] on 03-17-2024 PT Coag (PPP) [Time] 35.7 s High 11.7-14.9 [facility] normalized rat io (INR) calculationOrdered By: Carlos Cavazos on 03-14-2024 INR Coag (Bld) [Relative time] 3.5 {INR} [facility] Prothrombin Time w/INRon INR Coag (PPP) [Relative time] 3.5 {INR} Normal [facility] Comment on above: Order Comment: 411-2 Performed By: #### L 300.3900 ####[facility] [address] [place], [address] PT Coag (PPP) [Time] 35.0 s High 11.7-14.9 [facility] Comment on above: Order Comment: 411-2 Performed By: #### L 300.3900 ####[facility] [address] [place], [place], [phone] Prothrombin timeOrdered By: Carlos Cavazos on 03-14-2024 PT Coag (PPP) [Time] 35.0 s High 11.7-14.9 [facility] normalized rat io (INR) calculationOrdered By: [facility] [employer] on 03-13-2024 INR Coag (Bld) [Relative time] 3.2 {INR} [facility] Prothrombin Time w/INRon INR Coag (PPP) [Relative time] 3.2 {INR} Normal [facility] Comment on above: Performed By: #### L 300.3900 ####[facility] [address] [place], [address] PT Coag (PPP) [Time] 32.2 s High 11.7-14.9 [facility] Comment on above: Performed By: #### L 300.3900 ####[facility] [address] [place], [place], [phone] Prothrombin timeOrdered By: [facility] [employer] on 03-13-2024 PT Coag (PPP) [Time] 32.2 s High 11.7-14.9 [facility] Prothrombin Time w/INRon INR Coag (PPP) [Relative time] 2.6 {INR} Normal [facility] Comment on above: Order Comment: 411.2 Performed By: #### L 300.3900 ####[facility] [address] [place], [address] PT Coag (PPP) [Time] 27.7 s High 11.7-14.9 [facility] Comment on above: Order Comment: 411.2 Performed By: #### L 300.3900 ####[facility] [address] [place], [place], [phone] Office Visiton 09-13-2023 Follow-up visit [id number] Tamie Sifuentes ld R 1950 M Date Provider Department Center 09/13/2023 [id number] BUCK [facility] URO None Family History Problem Relation Age of Onset Heart disease Father Cancer Mother Family Status - Relation Status Age at Father Mother Level of Service:61473 RI OFFICE/OUTPATIENT ESTABLISHED MOD MDM 30 MIN Reason for Visit and Comments: left flank pain [Other] - 8/10 pain when touched Normal [facility] Progress Noteon 09-13-2023 Progress Note Walt Moran [...] Hydrocephalus, adult (CMS/HCC) (HCC) Kidney 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 Normal [facility] PELVIS WO IV CONTRAST Patient Name: ANDREW [facility]UENT[facility] 1950 [id number] Exam Date/Time: 09/06/2023 18:14 Procedure: CT ABDOMEN [...] kidney stone; pt has a hernia Normal [facility] 08-29-2023 36 Lm on daughters vm t o advise them to call the number for the manager software development to get clarification, and to call back with further questions [facility] 36on 04-22-2024 36 Yes, they will need to call the number given to them. [facility] 36 Please advise [facility] 36on 08-21-2023 36 Name of caller: Zion holt Contact phone number: [phone] Relationship to Patient: patient Provider: MD Cielo Practice: [facility] Urology Chief Complaint/Reason for Call: Shanthi called [...] to reach out to call Maury Cedeño Credit Administration Manager at [facility] [phone] to get clarifications. CAC did reach back out to [facility] and advised and provider Maury's #. Please advise Best time of day caller can be reached: Any Patient advised that office/PCP has 24-48 business hours to return their call: N/A [facility] Laboratory - CoagulationOrde red By: Carlos Cavazos on 08-21-2023 INR Coag (Bld) [Relative time] 2.7 {INR} [facility] PT Coag (PPP) [Time] 28.9 s 11.7-14.9 [facility] Office Visiton 08-13-2023 Follow-up visit [id number] Tamie Sifuentes cheng Gonzalez 1950 Walt Pak Provider Department Center 08/13/2023 [id number] BUCK [facility] URO None Family History Problem Relation Age of Onset Heart disease Father Cancer Mother Family Status - Relation Status Age at Father Mother Level of Service:05329 RI OFFICE/OUTPATIENT NEW MODERATE MDM 45 MINUTES Reason for Visit and Comments: New Patient [542] - Bilateral flank pain, hx of kidney stones Nephrolithiasis [669427] [facility] Progress Noteon 08-13-2023 Progress Note Walt Moran [...] Hydrocephalus, adult (CMS/HCC) (HCC) Kidney stone 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 Normal [facility] No Panel InformationOrdered By: Carlos Cavazos on 08-03-2023 Levetiracetam (Keppra) Level 32.4 ug/mL 10.0-40.0 [facility] Comment on above: Performed at: [address] [id number] Director: Alpesh Vázquez MD, Phone: [phone] Basophil percentageOrdered B y: Carlos Cavazos on 07-20-2023 Chloride [Moles/Vol] 106 mmol/L 98-107 [facility] Glucose [Mass/Vol] 98 mg/dL 74-106 [facility] Hemoglobin (Bld) [Mass/Vol] 12.5 g/dL 13.0-16.5 [facility] Potassium [Moles/Vol] 4.3 mmol/L 3.5-5.1 [facility] Sodium [Moles/Vol] 135 mmol/L 136-145 [facility] WBC (Bld) [#/Vol] 13.0 10*3/uL 4.4-11.0 [facility] Determination of erythrocyte mean corpuscular volume (MCV)Ordered By: Carlos Cavazos on 07-20-2023 MCV (RBC) [Entitic vol] 86.2 fL 80-94 [facility] Erythrocyte distribution wid th ratioOrdered By: Carlos Cavazos on 07-20-2023 Erythrocyte distribution width (RBC) [Ratio] 15.3 % 11.6-14.6 [facility] Erythrocyte distribution wid th standard deviationOrdered By: Carlos Cavazos on 07-20-2023 Erythrocyte distribution width (RBC) [Entitic vol] 48.1 fL 35.1-43.9 [facility] Hematocrit Auto (Bld) [Volum e fraction]Ordered By: Carlos Cavazos on 07-20-2023 Hematocrit (Bld) [Volume fraction] 39.9 % 40-54 [facility] Laboratory - Chemistry and C hemistry - challengeOrdered By: Carlos Cavazos on 07-20-2023 CO2 [Moles/Vol] 24.0 mmol/L 21.0-32.0 [facility] Urea nitrogen/Creatinine [Mass ratio] 24.6 mg/mg 10-20 [facility] Laboratory - Hematology and Cell countsOrdered By: Carlos Cavazos on 07-20-2023 MCH (RBC) [Entitic mass] 27.0 pg 27.0-32.0 [facility] MCHC (RBC) [Mass/Vol] 31.3 g/dL 32-36 [facility] Platelet mean volume (Bld) [Entitic vol] 10.7 fL 6.2-12.0 [facility] Platelets (Bld) [#/Vol] 260 10*3/uL 150-450 [facility] No Panel InformationOrdered By: Carlos Cavazos on 07-20-2023 Estimated GFR (MDRD) Amer 114 mL/min >60 [facility] Comment on above: GFR Calc Estimated GFR (MDRD) Non-Af Amer 94 mL/min >60 [facility] Comment on above: Non- GFR Calc RBC Auto (Bld) [#/Vol]Ordere d By: Carlos Cavazos on 07-20-2023 RBC (Bld) [#/Vol] 4.63 10*6/uL 4.6-6.2 [facility] Serum or plasma calcium oral urement (mass/volume)Ordered By: Carlos Cavazos on 07-20-2023 Calcium [Mass/Vol] 8.6 mg/dL 8.5-10.1 [facility] Serum or plasma creatinine m easurement (mass/volume)Ordered By: Carlos Cavazos on 07-20-2023 Creatinine [Mass/Vol] 0.85 mg/dL 0.70-1.30 [facility] Comment on above: The validity of the calculated GFR & GFRAA in patients over 70 years has not been determined. Clinical correlation is essential. Serum or plasma urea nitroge n measurement (mass/volume)Ordered By: Carlos Cavazos on 07-20-2023 Urea nitrogen [Mass/Vol] 21 mg/dL 7-18 [facility] Thin prep Papanicolaou smear with manual screeningOrdered By: Carlos Cavazos on 07-20-2023 Thin prep Papanicolaou smear with manual screening 5 5-15 [facility] Basophil percentageOrdered B y: Carlos Cavazos on 07-18-2023 Chloride [Moles/Vol] 102 mmol/L 98-107 [facility] Glucose [Mass/Vol] 96 mg/dL 74-106 [facility] Hemoglobin (Bld) [Mass/Vol] 12.3 g/dL 13.0-16.5 [facility] Potassium [Moles/Vol] 4.2 mmol/L 3.5-5.1 [facility] Sodium [Moles/Vol] 136 mmol/L 136-145 [facility] WBC (Bld) [#/Vol] 14.7 10*3/uL 4.4-11.0 [facility] Determination of erythrocyte mean corpuscular volume (MCV)Ordered By: Carlos Cavazos on 07-18-2023 MCV (RBC) [Entitic vol] 85.4 fL 80-94 [facility] Erythrocyte distribution wid th ratioOrdered By: Carlos Cavazos on 07-18-2023 Erythrocyte distribution width (RBC) [Ratio] 15.1 % 11.6-14.6 [facility] Erythrocyte distribution wid th standard deviationOrdered By: Carlos Cavazos on 07-18-2023 Erythrocyte distribution width (RBC) [Entitic vol] 47.3 fL 35.1-43.9 [facility] Hematocrit Auto (Bld) [Volum e fraction]Ordered By: Carlos Cavazos on 07-18-2023 Hematocrit (Bld) [Volume fraction] 39.3 % 40-54 [facility] Laboratory - Chemistry and C hemistry - challengeOrdered By: Carlos Cavazos on 07-18-2023 CO2 [Moles/Vol] 27.0 mmol/L 21.0-32.0 [facility] Urea nitrogen/Creatinine [Mass ratio] 24.4 mg/mg 10-20 [facility] Laboratory - Hematology and Cell countsOrdered By: Carlos Cavazos on 07-18-2023 MCH (RBC) [Entitic mass] 26.7 pg 27.0-32.0 [facility] MCHC (RBC) [Mass/Vol] 31.3 g/dL 32-36 [facility] Platelet mean volume (Bld) [Entitic vol] 10.3 fL 6.2-12.0 [facility] Platelets (Bld) [#/Vol] 288 10*3/uL 150-450 [facility] No Panel InformationOrdered By: Carlos Cavazos on 07-18-2023 Estimated GFR (MDRD) Amer 113 mL/min >60 [facility] Comment on above: GFR Calc Estimated GFR (MDRD) Non-Af Amer 93 mL/min >60 [facility] Comment on above: Non- GFR Calc RBC Auto (Bld) [#/Vol]Ordere d By: Carlos Cavazos on 07-18-2023 RBC (Bld) [#/Vol] 4.60 10*6/uL 4.6-6.2 [facility] Serum or plasma calcium oral urement (mass/volume)Ordered By: Carlos Cavazos on 07-18-2023 Calcium [Mass/Vol] 8.9 mg/dL 8.5-10.1 [facility] Serum or plasma creatinine m easurement (mass/volume)Ordered By: Carlos Cavazos on 07-18-2023 Creatinine [Mass/Vol] 0.86 mg/dL 0.70-1.30 [facility] Comment on above: The validity of the calculated GFR & GFRAA in patients over 70 years has not been determined. Clinical correlation is essential. Serum or plasma urea nitroge n measurement (mass/volume)Ordered By: Carlos Cavazos on 07-18-2023 Urea nitrogen [Mass/Vol] 21 mg/dL 7-18 [facility] Thin prep Papanicolaou smear with manual screeningOrdered By: Carlos Cavazos on 07-18-2023 Thin prep Papanicolaou smear with manual screening 7 5-15 [facility] Basophil percentageOrdered B y: Carlos Cavazos on 07-17-2023 Basophil percentage 0-5 SEEN /hpf 0-5 [facility] Bilirubin Test strip Ql (U)O rdered By: Carlos Cavazos on 07-17-2023 Bilirubin Ql (U) Negative Negative [facility] Calcium oxalate crystals det ection in urine sediment by light microscopyOrdered By: Carlos Cavazos on 07-17-2023 Calcium oxalate crystals LM Ql (Urine sed) 1+ /hpf [facility] Culture, urineOrdered By: Sharif Crouch on 07-17-2023 Bacteria identified Cx Nom (U) Positive [facility] Ketones Test strip Ql (U)Ord ered By: Carlos Cavazos on 07-17-2023 Ketones Ql (U) Negative Negative [facility] Mucus LM Ql (Urine sed)Order ed By: Carlos Cavazos on 07-17-2023 Mucus Ql (Urine sed) 0 SEEN /hpf [facility] Nitrite Test strip Ql (U)Ord ered By: Carlos Cavazos on 07-17-2023 Nitrite Ql (U) Negative Negative [facility] No Panel InformationOrdered By: Carlos Cavazos on 07-17-2023 Urine RBC 0 SEEN /hpf 0-5 [facility] Protein Test strip Ql (U)Ord ered By: Carlos Cavazos on 07-17-2023 Protein Ql (U) Negative Negative [facility] Squamous epithelial cells de tection in urine sediment by light microscopyOrdered By: Carlos Cavazos on 07-17-2023 Epithelial cells.squamous LM Ql (Urine sed) 0-5 SEEN /hpf 0-5 [facility] Urine blood detectionOrdered By: Carlos Cavazos on 07-17-2023 RBC Ql (U) Negative Negative [facility] Urine clarityOrdered By: Ted Cavazos on 07-17-2023 Clarity (U) Clear Clear [facility] Urine color determinationOrd ered By: Carlos Cavazos on 07-17-2023 Color (U) Yellow Yellow [facility] Urine glucose detectionOrder ed By: Carlos Cavazos on 07-17-2023 Glucose Ql (U) Normal mg/dl Normal [facility] Urine leukocyte esterase det ection by dipstickOrdered By: Carlos Cavazos on 07-17-2023 Leukocyte esterase Test strip Ql (U) 25 /ul Negative [facility] Urine pHOrdered By: Carlos flores on 07-17-2023 pH (U) 6.0 [pH] 5.0 - 8.0 [facility] Urine sediment bacteria coun t by microscopy (number/high power field)Ordered By: Carlos Cavazos on 07-17-2023 Bacteria LM.HPF (Urine sed) [#/Area] 0 /[HPF] None Seen [facility] Urine specific gravity measu rementOrdered By: Carlos Cavazos on 07-17-2023 Specific gravity (U) [Rel density] 1.020 1.002-1.030 [facility] Urine urobilinogen measureme ntOrdered By: Carlos Cavazos on 07-17-2023 Urobilinogen Ql (U) Normal mg/dl Normal [facility] Absolute lymphocyte countOrd ered By: Carlos Cavazos on 07-16-2023 Lymphocytes Auto (Unsp spec) [#/Vol] 6.02 10*3/uL 0.83-4.51 [facility] Automated lymphocyte count a s percentage of total leukocytesOrdered By: Carlos Cavazos on 07-16-2023 Lymphocytes/100 WBC Auto (Unsp spec) 49.1 % 19-41 [facility] Basophil percentageOrdered B y: Carlos Cavazos on 07-16-2023 Basophils/100 WBC (Bld) 0.6 % 0-1 [facility] Chloride [Moles/Vol] 105 mmol/L 98-107 [facility] Eosinophils/100 WBC (Bld) 2.0 % 0-5 [facility] Glucose [Mass/Vol] 93 mg/dL 74-106 [facility] Hemoglobin (Bld) [Mass/Vol] 12.1 g/dL 13.0-16.5 [facility] Monocytes/100 WBC (Bld) 5.3 % 0-10 [facility] Neutrophils (Bld) [#/Vol] 5.2 10*3/uL 2.0-7.7 [facility] Neutrophils/100 WBC (Bld) 42.8 % 47-70 [facility] Potassium [Moles/Vol] 4.3 mmol/L 3.5-5.1 [facility] Sodium [Moles/Vol] 138 mmol/L 136-145 [facility] WBC (Bld) [#/Vol] 12.3 10*3/uL 4.4-11.0 [facility] Blood manual differential co mment interpretation (narrative result)Ordered By: Carlos Cavazos on 07-16-2023 Manual differential comment Shemar (Bld) [Interp] SCANNED [facility] Determination of erythrocyte mean corpuscular volume (MCV)Ordered By: Carlos Cavazos on 07-16-2023 MCV (RBC) [Entitic vol] 86.8 fL 80-94 [facility] Erythrocyte distribution wid th ratioOrdered By: Carlos Cavazos on 07-16-2023 Erythrocyte distribution width (RBC) [Ratio] 15.3 % 11.6-14.6 [facility] Erythrocyte distribution wid th standard deviationOrdered By: Carlos Cavazos on 07-16-2023 Erythrocyte distribution width (RBC) [Entitic vol] 48.9 fL 35.1-43.9 [facility] Hematocrit Auto (Bld) [Volum e fraction]Ordered By: Carlos Cavazos on 07-16-2023 Hematocrit (Bld) [Volume fraction] 38.7 % 40-54 [facility] Immature granulocytes/100 WB C Auto (Bld)Ordered By: Carlos Cavazos on 07-16-2023 Immature granulocytes/100 WBC (Bld) 0.200 % 0.0-0.9 [facility] Comment on above: IG% - Immature Granu locytes (promyelocytes, myelocytes and metamyelocytes) > 1% indicates that a LEFT SHIFT is Present. Laboratory - Chemistry and C hemistry - challengeOrdered By: Carlos Cavazos on 07-16-2023 CO2 [Moles/Vol] 25.0 mmol/L 21.0-32.0 [facility] Urea nitrogen/Creatinine [Mass ratio] 21.0 mg/mg 10-20 [facility] Laboratory - CoagulationOrde red By: Carlos Cavazos on 07-16-2023 INR Coag (Bld) [Relative time] 2.4 {INR} [facility] PT Coag (PPP) [Time] 25.7 s 11.7-14.9 [facility] Laboratory - Hematology and Cell countsOrdered By: Carlos Cavazos on 07-16-2023 MCH (RBC) [Entitic mass] 27.1 pg 27.0-32.0 [facility] MCHC (RBC) [Mass/Vol] 31.3 g/dL 32-36 [facility] Nucleated RBC/100 WBC (Bld) [Ratio] 0 % 0-5 [facility] Platelet mean volume (Bld) [Entitic vol] 10.5 fL 6.2-12.0 [facility] Platelets (Bld) [#/Vol] 289 10*3/uL 150-450 [facility] No Panel InformationOrdered By: Carlos Cavazos on 07-16-2023 Estimated GFR (MDRD) Amer 106 mL/min >60 [facility] Comment on above: GFR Calc Estimated GFR (MDRD) Non-Af Amer 88 mL/min >60 [facility] Comment on above: Non- GFR Calc Reactive Lymphocytes 1+ [facility] RBC Auto (Bld) [#/Vol]Ordere d By: Carlos Cavazos on 07-16-2023 RBC (Bld) [#/Vol] 4.46 10*6/uL 4.6-6.2 [facility] Serum or plasma calcium oral urement (mass/volume)Ordered By: Carlos Cavazos on 07-16-2023 Calcium [Mass/Vol] 9.0 mg/dL 8.5-10.1 [facility] Serum or plasma creatinine m easurement (mass/volume)Ordered By: Carlos Cavazos on 07-16-2023 Creatinine [Mass/Vol] 0.90 mg/dL 0.70-1.30 [facility] Comment on above: The validity of the calculated GFR & GFRAA in patients over 70 years has not been determined. Clinical correlation is essential. Serum or plasma urea nitroge n measurement (mass/volume)Ordered By: Carlos Cavazos on 07-16-2023 Urea nitrogen [Mass/Vol] 19 mg/dL 7-18 [facility] Thin prep Papanicolaou smear with manual screeningOrdered By: Carlos Cavazos on 07-16-2023 Thin prep Papanicolaou smear with manual screening 8 5-15 [facility] Absolute lymphocyte countOrd ered By: Carlos Cavazos on 07-13-2023 Lymphocytes Auto (Unsp spec) [#/Vol] 5.44 10*3/uL 0.83-4.51 [facility] Automated lymphocyte count a s percentage of total leukocytesOrdered By: Carlos Cavazos on 07-13-2023 Lymphocytes/100 WBC Auto (Unsp spec) 47.3 % 19-41 [facility] Basophil percentageOrdered B y: Carlos Cavazos on 07-13-2023 Basophils/100 WBC (Bld) 0.4 % 0-1 [facility] Chloride [Moles/Vol] 107 mmol/L 98-107 [facility] Eosinophils/100 WBC (Bld) 1.7 % 0-5 [facility] Glucose [Mass/Vol] 96 mg/dL 74-106 [facility] Hemoglobin (Bld) [Mass/Vol] 13.5 g/dL 13.0-16.5 [facility] Monocytes/100 WBC (Bld) 4.3 % 0-10 [facility] Neutrophils (Bld) [#/Vol] 5.3 10*3/uL 2.0-7.7 [facility] Neutrophils/100 WBC (Bld) 46.0 % 47-70 [facility] Potassium [Moles/Vol] 4.0 mmol/L 3.5-5.1 [facility] Sodium [Moles/Vol] 139 mmol/L 136-145 [facility] WBC (Bld) [#/Vol] 11.5 10*3/uL 4.4-11.0 [facility] Determination of erythrocyte mean corpuscular volume (MCV)Ordered By: Carlos Cavazos on 07-13-2023 MCV (RBC) [Entitic vol] 86.1 fL 80-94 [facility] Erythrocyte distribution wid th ratioOrdered By: Carlos Cavazos on 07-13-2023 Erythrocyte distribution width (RBC) [Ratio] 15.2 % 11.6-14.6 [facility] Erythrocyte distribution wid th standard deviationOrdered By: Carlos Cavazos on 07-13-2023 Erythrocyte distribution width (RBC) [Entitic vol] 48.0 fL 35.1-43.9 [facility] Hematocrit Auto (Bld) [Volum e fraction]Ordered By: Carlos Cavazos on 07-13-2023 Hematocrit (Bld) [Volume fraction] 42.2 % 40-54 [facility] Immature granulocytes/100 WB C Auto (Bld)Ordered By: Carlos Cavazos on 07-13-2023 Immature granulocytes/100 WBC (Bld) 0.300 % 0.0-0.9 [facility] Comment on above: IG% - Immature Granu locytes (promyelocytes, myelocytes and metamyelocytes) > 1% indicates that a LEFT SHIFT is Present. Laboratory - Chemistry and C hemistry - challengeOrdered By: Carlos Cavazos on 07-13-2023 CO2 [Moles/Vol] 26.0 mmol/L 21.0-32.0 [facility] Urea nitrogen/Creatinine [Mass ratio] 21.8 mg/mg 10-20 [facility] Laboratory - Hematology and Cell countsOrdered By: Carlos Cavazos on 07-13-2023 MCH (RBC) [Entitic mass] 27.6 pg 27.0-32.0 [facility] MCHC (RBC) [Mass/Vol] 32.0 g/dL 32-36 [facility] Nucleated RBC/100 WBC (Bld) [Ratio] 0 % 0-5 [facility] Platelet mean volume (Bld) [Entitic vol] 10.1 fL 6.2-12.0 [facility] Platelets (Bld) [#/Vol] 279 10*3/uL 150-450 [facility] No Panel InformationOrdered By: Carlos Cavazos on 07-13-2023 Estimated GFR (MDRD) Amer 118 mL/min >60 [facility] Comment on above: GFR Calc Estimated GFR (MDRD) Non-Af Amer 98 mL/min >60 [facility] Comment on above: Non- GFR Calc Levetiracetam (Keppra) Level 25.5 ug/mL 10.0-40.0 [facility] Comment on above: Performed at: [address] [id number] Director: Alpesh Vázquez MD, Phone: [phone] RBC Auto (Bld) [#/Vol]Ordere d By: Carlos Cavazos on 07-13-2023 RBC (Bld) [#/Vol] 4.90 10*6/uL 4.6-6.2 [facility] Serum or plasma calcium oral urement (mass/volume)Ordered By: Carlos Cavazos on 07-13-2023 Calcium [Mass/Vol] 9.1 mg/dL 8.5-10.1 [facility] Serum or plasma creatinine m easurement (mass/volume)Ordered By: Carlos Cavazos on 07-13-2023 Creatinine [Mass/Vol] 0.82 mg/dL 0.70-1.30 [facility] Comment on above: The validity of the calculated GFR & GFRAA in patients over 70 years has not been determined. Clinical correlation is essential. Serum or plasma urea nitroge n measurement (mass/volume)Ordered By: Carlos Cavazos on 07-13-2023 Urea nitrogen [Mass/Vol] 18 mg/dL 7-18 [facility] Thin prep Papanicolaou smear with manual screeningOrdered By: Carlos Cavazos on 07-13-2023 Thin prep Papanicolaou smear with manual screening 6 5-15 [facility] No Panel InformationOrdered By: Carlos Cavazos on 07-12-2023 Valproic Acid (Depakene) Level < 3 ug/mL 50-100 [facility] Laboratory - CoagulationOrde red By: Carlos Cavazos on 07-05-2023 INR Coag (Bld) [Relative time] 2.4 {INR} [facility] PT Coag (PPP) [Time] 26.3 s 11.7-14.9 [facility] Laboratory - CoagulationOrde red By: Carlos Cavazos on 07-02-2023 INR Coag (Bld) [Relative time] 1.5 {INR} [facility] PT Coag (PPP) [Time] 18.5 s 11.7-14.9 [facility] Laboratory - CoagulationOrde red By: Carlos Cavazos on 06-28-2023 INR Coag (Bld) [Relative time] 1.7 {INR} [facility] PT Coag (PPP) [Time] 20.5 s 11.7-14.9 [facility] 36on 06-25-[address] [place] [address] called in stating appt scheduled 07/10/23 Guy has to be made further out, pt being transported by cot. Changed appt to 08/13/23 per [facility] only avail time for transport, first avail with DR Buck at 10:00 AM. [facility] Laboratory - CoagulationOrde red By: Carlos Cavazos on 06-25-2023 INR Coag (Bld) [Relative time] 3.8 {INR} [facility] PT Coag (PPP) [Time] 38.2 s 11.7-14.9 [facility] Laboratory - CoagulationOrde red By: Carlos Cavazos on 06-21-2023 INR Coag (Bld) [Relative time] 3.2 {INR} [facility] PT Coag (PPP) [Time] 32.9 s 11.7-14.9 [facility] No Panel InformationOrdered By: Carlos Cavazos on 06-13-2023 Valproic Acid (Depakene) Level < 3 ug/mL 50-100 [facility] Laboratory - CoagulationOrde red By: Carlos Cavazos on 06-06-2023 PT Coag (PPP) [Time] 30.5 s 11.7-14.9 [facility] Platelet poor plasma interna tional normalized ratio (INR)Ordered By: Carlos Cavazos on 06-06-2023 INR Coag (PPP) [Relative time] 2.9 {INR} [facility] International normalized rat io (INR) calculationOrdered By: Carlos Cavazos on 05-23-2023 INR Coag (PPP) [Relative time] 2.6 {INR} [facility] Laboratory - CoagulationOrde red By: Carlos Cavazos on 05-23-2023 PT Coag (PPP) [Time] 27.7 s 11.7-14.9 [facility] Laboratory - CoagulationOrde red By: Carlos Cavazos on 05-09-2023 PT Coag (PPP) [Time] 24.1 s 11.7-14.9 [facility] Whole blood international no rmalized ratio (INR)Ordered By: Carlos Cavazos on 05-09-2023 INR Coag (Bld) [Relative time] 2.1 {INR} [facility] Laboratory - CoagulationOrde red By: Carlos Cavazos on 04-23-2023 PT Coag (PPP) [Time] 26.4 s 11.7-14.9 [facility] Whole blood international no rmalized ratio (INR)Ordered By: Carlos Cavazos on 04-23-2023 INR Coag (Bld) [Relative time] 2.4 {INR} [facility] INR in Blood by Coagulation assayOrdered By: Carlos Cavazos on 04-09-2023 INR Coag (Bld) [Relative time] 2.1 {INR} [facility] Laboratory - CoagulationOrde red By: Carols Cavazos on 04-09-2023 PT Coag (PPP) [Time] 23.9 s 11.7-14.9 [facility] INR in Blood by Coagulation assayOrdered By: Carlos Cavazos on 04-02-2023 INR Coag (Bld) [Relative time] 2.2 {INR} [facility] Laboratory - CoagulationOrde red By: Carlos Cavazos on 04-02-2023 PT Coag (PPP) [Time] 24.5 s 11.7-14.9 [facility] INR in Blood by Coagulation assayOrdered By: Carlos Cavazos on 03-26-2023 INR Coag (Bld) [Relative time] 1.7 {INR} [facility] Laboratory - CoagulationOrde red By: Carlos Cavazos on 03-26-2023 PT Coag (PPP) [Time] 19.9 s 11.7-14.9 [facility] INR in Blood by Coagulation assayOrdered By: Carlos Cavazos on 03-22-2023 INR Coag (Bld) [Relative time] 1.3 {INR} [facility] Laboratory - CoagulationOrde red By: Carlos Cavazos on 03-22-2023 PT Coag (PPP) [Time] 16.4 s 11.7-14.9 [facility] INR in Blood by Coagulation assayOrdered By: Carlos Cavazos on 03-08-2023 INR Coag (Bld) [Relative time] 2.0 {INR} [facility] Laboratory - CoagulationOrde red By: Carlos Cavazos on 03-08-2023 PT Coag (PPP) [Time] 22.5 s 11.7-14.9 [facility] Laboratory - CoagulationOrde red By: Carlos Cavazos on 02-22-2023 INR Coag (Bld) [Relative time] 2.2 {INR} [facility] Comment on above: Critical Value > 4.0 Whole blood prothrombin time Ordered By: Carlos Cavazos on 02-22-2023 PT Coag (Bld) [Time] 24.0 s 11.7-14.9 [facility] INR in Blood by Coagulation assayOrdered By: Cliff Bruner on 02-15-2023 INR Coag (Bld) [Relative time] 2.0 {INR} [facility] Laboratory - CoagulationOrde red By: Cliff Bruner on 02-15-2023 PT Coag (PPP) [Time] 22.8 s 11.7-14.9 [facility] INR in Blood by Coagulation assayOrdered By: Carlos Cavazos on 02-08-2023 INR Coag (Bld) [Relative time] 2.1 {INR} [facility] Laboratory - CoagulationOrde red By: Carlos Cavazos on 02-08-2023 PT Coag (PPP) [Time] 23.5 s 11.7-14.9 [facility] INR in Blood by Coagulation assayOrdered By: Carlos Cavazos on 01-31-2023 INR Coag (Bld) [Relative time] 2.0 {INR} [facility] Laboratory - CoagulationOrde red By: Carlos Cavazos on 01-31-2023 PT Coag (PPP) [Time] 22.4 s 11.7-14.9 [facility] Laboratory - CoagulationOrde red By: Carlos Cavazos on 01-29-2023 INR Coag (Bld) [Relative time] 1.8 {INR} [facility] Comment on above: Critical Value > 4.0 Whole blood prothrombin time Ordered By: Carlos Cavazos on 01-29-2023 PT Coag (Bld) [Time] 19.9 s 11.7-14.9 [facility] INR in Blood by Coagulation assayOrdered By: Carlos Cavazos on 01-26-2023 INR Coag (Bld) [Relative time] 1.5 {INR} [facility] Laboratory - CoagulationOrde red By: Carlos Cavazos on 01-26-2023 PT Coag (PPP) [Time] 18.3 s 11.7-14.9 [facility] INR in Blood by Coagulation assayOrdered By: Carlos Cavazos on 01-24-2023 INR Coag (Bld) [Relative time] 1.3 {INR} [facility] Laboratory - CoagulationOrde red By: Carlos Cavazos on 01-24-2023 PT Coag (PPP) [Time] 16.2 s 11.7-14.9 [facility] Basophil percentageOrdered B y: Carlos Cavazos on 01-22-2023 Basophil percentage 0 SEEN /hpf 0-5 [facility] Bilirubin Test strip Ql (U)O rdered By: Carlos Cavazos on 01-22-2023 Bilirubin Ql (U) Negative Negative [facility] Calcium oxalate crystals det ection in urine sediment by light microscopyOrdered By: Carlos Cavazos on 01-22-2023 Calcium oxalate crystals LM Ql (Urine sed) 1+ /hpf [facility] Culture, urineOrdered By: Sharif Crouch on 01-22-2023 Bacteria identified Cx Nom (U) Positive [facility] Ketones Test strip Ql (U)Ord ered By: Carlos Cavazos on 01-22-2023 Ketones Ql (U) Negative Negative [facility] Mucus LM Ql (Urine sed)Order ed By: Carlos Cavazos on 01-22-2023 Mucus Ql (Urine sed) 1+ /hpf [facility] Nitrite Test strip Ql (U)Ord ered By: Carlos Cavazos on 01-22-2023 Nitrite Ql (U) Negative Negative [facility] Protein Test strip Ql (U)Ord ered By: Carlos Cavazos on 01-22-2023 Protein Ql (U) Negative Negative [facility] Squamous epithelial cells de tection in urine sediment by light microscopyOrdered By: Carlos Cavazos on 01-22-2023 Epithelial cells.squamous LM Ql (Urine sed) 0 SEEN /hpf 0-5 [facility] Urine blood detectionOrdered By: Carlos Cavazos on 01-22-2023 RBC Ql (U) Negative Negative [facility] RBC Ql (U) 0 SEEN /hpf 0-5 [facility] Urine clarityOrdered By: Ted Cavazos on 01-22-2023 Clarity (U) Sl. Cloudy Clear [facility] Urine color determinationOrd ered By: Carlos Cavazos on 01-22-2023 Color (U) Yellow Yellow [facility] Urine glucose detectionOrder ed By: Carlos Cavazos on 01-22-2023 Glucose Ql (U) Normal mg/dl Normal [facility] Urine leukocyte esterase det ection by dipstickOrdered By: Carlos Cavazos on 01-22-2023 Leukocyte esterase Test strip Ql (U) Negative Negative [facility] Urine pHOrdered By: Carlos flores on 01-22-2023 pH (U) 5.0 [pH] 5.0 - 8.0 [facility] Urine sediment bacteria coun t by microscopy (number/high power field)Ordered By: Carlos Cavazos on 01-22-2023 Bacteria LM.HPF (Urine sed) [#/Area] 2 /[HPF] None Seen [facility] Urine specific gravity measu rementOrdered By: Carlos Cavazos on 01-22-2023 Specific gravity (U) [Rel density] 1.025 1.002-1.030 [facility] Urobilinogen Auto test strip Ql (U)Ordered By: Carlos Cavazos on 01-22-2023 Urobilinogen Ql (U) Normal mg/dl Normal [facility] INR in Blood by Coagulation assayOrdered By: Carlos Cavazos on 01-10-2023 INR Coag (Bld) [Relative time] 2.0 {INR} [facility] Laboratory - CoagulationOrde red By: Carlos Cavazos on 01-10-2023 PT Coag (PPP) [Time] 22.6 s 11.7-14.9 [facility] INR in Blood by Coagulation assayOrdered By: Carlos Cavazos on 12-27-2022 INR Coag (Bld) [Relative time] 2.1 {INR} [facility] Laboratory - CoagulationOrde red By: Carlos Cavazos on 12-27-2022 PT Coag (PPP) [Time] 24.1 s 11.7-14.9 [facility] INR in Blood by Coagulation assayOrdered By: Carlos Cavazos on 12-21-2022 INR Coag (Bld) [Relative time] 2.4 {INR} [facility] Laboratory - CoagulationOrde red By: Carlos Cavazos on 12-21-2022 PT Coag (PPP) [Time] 26.7 s 11.7-14.9 [facility] Laboratory - CoagulationOrde red By: Carlos Cavazos on 12-14-2022 INR Coag (Bld) [Relative time] 2.3 {INR} [facility] Comment on above: Critical Value > 4.0 Whole blood prothrombin time Ordered By: Carlos Cavazos on 12-14-2022 PT Coag (Bld) [Time] 25.2 s 11.7-14.9 [facility] Laboratory - CoagulationOrde red By: Carlos Cavazos on 12-07-2022 INR Coag (Bld) [Relative time] 2.5 {INR} [facility] Comment on above: Critical Value > 4.0 Whole blood prothrombin time Ordered By: Carlos Cavazos on 12-07-2022 PT Coag (Bld) [Time] 26.9 s 11.7-14.9 [facility] Amorphous sediment detection in urine sediment by light microscopyOrdered By: Carlos Cavazos on 11-24-2022 Amorphous sediment LM Ql (Urine sed) 1+ [facility] Basophil percentageOrdered B y: Carlos Cavazos on 11-24-2022 Basophil percentage 0 SEEN /hpf 0-5 [facility] Bilirubin [Mass/Vol] 0.30 mg/dL 0.20-1.00 [facility] Comment on above: For patients on eltr ombopag therapy, use of Dimension Spangle TBIL is not recommended. Chloride [Moles/Vol] 107 mmol/L 98-107 [facility] Glucose [Mass/Vol] 95 mg/dL 74-106 [facility] Potassium [Moles/Vol] 4.2 mmol/L 3.5-5.1 [facility] Protein [Mass/Vol] 6.9 g/dL 6.4-8.2 [facility] Sodium [Moles/Vol] 138 mmol/L 136-145 [facility] WBC (Bld) [#/Vol] 10.4 10*3/uL 4.4-11.0 [facility] Bilirubin Test strip Ql (U)O rdered By: Carlos Cavazos on 11-24-2022 Bilirubin Ql (U) Negative Negative [facility] Blood erythrocytes count (nu mber/volume)Ordered By: Carlos Cavazos on 11-24-2022 RBC (Bld) [#/Vol] 4.44 10*6/uL 4.6-6.2 [facility] Blood hemoglobin measurement (mass/volume)Ordered By: Carlos Cavazos on 11-24-2022 Hemoglobin (Bld) [Mass/Vol] 11.8 g/dL 13.0-16.5 [facility] Blood platelet mean volumeOr dered By: Carlos Cavazos on 11-24-2022 Platelet mean volume (Bld) [Entitic vol] 9.7 fL 6.2-12.0 [facility] Calcium oxalate crystals det ection in urine sediment by light microscopyOrdered By: Carlos Cavazos on 11-24-2022 Calcium oxalate crystals LM Ql (Urine sed) RARE /hpf [facility] Culture, urineOrdered By: Sharif Crouch on 11-24-2022 Bacteria identified Cx Nom (U) Positive [facility] Determination of erythrocyte mean corpuscular volume (MCV)Ordered By: Carlos Cavazos on 11-24-2022 MCV (RBC) [Entitic vol] 84.7 fL 80-94 [facility] Hematocrit Auto (Bld) [Volum e fraction]Ordered By: Carlos Cavazos on 11-24-2022 Hematocrit (Bld) [Volume fraction] 37.6 % 40-54 [facility] Ketones Test strip Ql (U)Ord ered By: Carlos Cavazos on 11-24-2022 Ketones Ql (U) Negative Negative [facility] Laboratory - Chemistry and C hemistry - challengeOrdered By: Carlos Cavazos on 11-24-2022 ALP [Catalytic activity/Vol] 103 U/L 45-117 [facility] ALT [Catalytic activity/Vol] 14 U/L 16-61 [facility] CO2 [Moles/Vol] 26.0 mmol/L 21.0-32.0 [facility] Globulin (S) [Mass/Vol] 4.0 g/dL 2.2-4.2 [facility] Urea nitrogen/Creatinine [Mass ratio] 24.1 mg/mg 10-20 [facility] Laboratory - Hematology and Cell countsOrdered By: Carlos Cavazos on 11-24-2022 Erythrocyte distribution width (RBC) [Entitic vol] 49.4 fL 35.1-43.9 [facility] Erythrocyte distribution width (RBC) [Ratio] 16.0 % 11.6-14.6 [facility] MCH (RBC) [Entitic mass] 26.6 pg 27.0-32.0 [facility] MCHC Auto (RBC) [Mass/Vol]Or dered By: Carlos Cavazos on 11-24-2022 MCHC (RBC) [Mass/Vol] 31.4 g/dL 32-36 [facility] Mucus LM Ql (Urine sed)Order ed By: Carlos Cavazos on 11-24-2022 Mucus Ql (Urine sed) 0 SEEN /hpf [facility] Nitrite Test strip Ql (U)Ord ered By: Carlos Cavazos on 11-24-2022 Nitrite Ql (U) Negative Negative [facility] No Panel InformationOrdered By: Carlos Cavazos on 11-24-2022 Estimated GFR (MDRD) Amer 118 mL/min >60 [facility] Comment on above: GFR Calc Estimated GFR (MDRD) Non-Af Amer 97 mL/min >60 [facility] Comment on above: Non- GFR Calc Platelets bldOrdered By: Pet er Kenny on 11-24-2022 Platelets (Bld) [#/Vol] 309 10*3/uL 150-450 [facility] Protein Test strip Ql (U)Ord ered By: Carlos Cavazos on 11-24-2022 Protein Ql (U) Negative Negative [facility] Serum or plasma albumin oral urement (mass/volume)Ordered By: Carlos Cavazos on 11-24-2022 Albumin [Mass/Vol] 2.9 g/dL 3.2-5.0 [facility] Serum or plasma albumin/glob ulin mass ratioOrdered By: Carlos Cavazos on 11-24-2022 Albumin/Globulin [Mass ratio] 0.7 {ratio} 0.9-2.4 [facility] Serum or plasma calcium oral urement (mass/volume)Ordered By: Carlos Cavazos on 11-24-2022 Calcium [Mass/Vol] 8.7 mg/dL 8.5-10.1 [facility] Serum or plasma creatinine m easurement (mass/volume)Ordered By: Carlos Cavazos on 11-24-2022 Creatinine [Mass/Vol] 0.83 mg/dL 0.70-1.30 [facility] Comment on above: The validity of the calculated GFR & GFRAA in patients over 70 years has not been determined. Clinical correlation is essential. Serum or plasma urea nitroge n measurement (mass/volume)Ordered By: Carlos Cavazos on 11-24-2022 Urea nitrogen [Mass/Vol] 20 mg/dL 7-18 [facility] Squamous epithelial cells de tection in urine sediment by light microscopyOrdered By: Carlos Cavazos on 11-24-2022 Epithelial cells.squamous LM Ql (Urine sed) 0 SEEN /hpf 0-5 [facility] Thin prep Papanicolaou smear with manual screeningOrdered By: Carlos Cavazos on 11-24-2022 Thin prep Papanicolaou smear with manual screening 10 U/L 15-37 [facility] Thin prep Papanicolaou smear with manual screening 5 5-15 [facility] Urine blood detectionOrdered By: Carlos Cavazos on 11-24-2022 RBC Ql (U) Negative Negative [facility] RBC Ql (U) 0 SEEN /hpf 0-5 [facility] Urine clarityOrdered By: Ted Cavazos on 11-24-2022 Clarity (U) Clear Clear [facility] Urine color determinationOrd ered By: Carlos Cavazos on 11-24-2022 Color (U) Yellow Yellow [facility] Urine glucose detectionOrder ed By: Carlos Cavazos on 11-24-2022 Glucose Ql (U) Normal mg/dl Normal [facility] Urine leukocyte esterase det ection by dipstickOrdered By: Carlos Cavazos on 11-24-2022 Leukocyte esterase Test strip Ql (U) Negative Negative [facility] Urine pHOrdered By: Carlos flores on 11-24-2022 pH (U) 7.0 [pH] 5.0 - 8.0 [facility] Urine sediment bacteria coun t by microscopy (number/high power field)Ordered By: Carlos Cavazos on 11-24-2022 Bacteria LM.HPF (Urine sed) [#/Area] 0 /[HPF] None Seen [facility] Urine specific gravity measu rementOrdered By: Carlos Cavazos on 11-24-2022 Specific gravity (U) [Rel density] 1.010 1.002-1.030 [facility] Urobilinogen Auto test strip Ql (U)Ordered By: Carlos Cavazos on 11-24-2022 Urobilinogen Ql (U) Normal mg/dl Normal [facility] Laboratory - CoagulationOrde red By: Carlos Cavazos on 11-23-2022 INR Coag (Bld) [Relative time] 2.2 {INR} [facility] Comment on above: Critical Value > 4.0 Whole blood prothrombin time Ordered By: Carlos Cavazos on 11-23-2022 PT Coag (Bld) [Time] 24.5 s 11.7-14.9 [facility] Basophil percentageOrdered B y: Carlos Cavazos on 11-22-2022 Chloride [Moles/Vol] 105 mmol/L 98-107 [facility] Glucose [Mass/Vol] 91 mg/dL 74-106 [facility] Potassium [Moles/Vol] 4.1 mmol/L 3.5-5.1 [facility] Sodium [Moles/Vol] 138 mmol/L 136-145 [facility] WBC (Bld) [#/Vol] 12.0 10*3/uL 4.4-11.0 [facility] Blood erythrocytes count (nu mber/volume)Ordered By: Carlos Cavazos on 11-22-2022 RBC (Bld) [#/Vol] 4.65 10*6/uL 4.6-6.2 [facility] Blood hemoglobin measurement (mass/volume)Ordered By: Carlos Cavazos on 11-22-2022 Hemoglobin (Bld) [Mass/Vol] 12.4 g/dL 13.0-16.5 [facility] Blood platelet mean volumeOr dered By: Carlos Cavazos on 11-22-2022 Platelet mean volume (Bld) [Entitic vol] 10.3 fL 6.2-12.0 [facility] Determination of erythrocyte mean corpuscular volume (MCV)Ordered By: Carlos Cavazos on 11-22-2022 MCV (RBC) [Entitic vol] 86.0 fL 80-94 [facility] Hematocrit Auto (Bld) [Volum e fraction]Ordered By: Carlos Cavazos on 11-22-2022 Hematocrit (Bld) [Volume fraction] 40.0 % 40-54 [facility] Laboratory - Chemistry and C hemistry - challengeOrdered By: Carlos Cavazos on 11-22-2022 CO2 [Moles/Vol] 25.0 mmol/L 21.0-32.0 [facility] Urea nitrogen/Creatinine [Mass ratio] 23.6 mg/mg 10-20 [facility] Laboratory - Hematology and Cell countsOrdered By: Carlos Cavazos on 11-22-2022 Erythrocyte distribution width (RBC) [Entitic vol] 50.0 fL 35.1-43.9 [facility] Erythrocyte distribution width (RBC) [Ratio] 15.9 % 11.6-14.6 [facility] MCH (RBC) [Entitic mass] 26.7 pg 27.0-32.0 [facility] MCHC Auto (RBC) [Mass/Vol]Or dered By: Carlos Cavazos on 11-22-2022 MCHC (RBC) [Mass/Vol] 31.0 g/dL 32-36 [facility] No Panel InformationOrdered By: Carlos Cavazos on 11-22-2022 Estimated GFR (MDRD) Amer 115 mL/min >60 [facility] Comment on above: GFR Calc Estimated GFR (MDRD) Non-Af Amer 95 mL/min >60 [facility] Comment on above: Non- GFR Calc Platelets bldOrdered By: Ted Cavazos on 11-22-2022 Platelets (Bld) [#/Vol] 320 10*3/uL 150-450 [facility] Serum or plasma calcium oral urement (mass/volume)Ordered By: Carlos Cavazos on 11-22-2022 Calcium [Mass/Vol] 8.7 mg/dL 8.5-10.1 [facility] Serum or plasma creatinine m easurement (mass/volume)Ordered By: Carlos Cavazos on 11-22-2022 Creatinine [Mass/Vol] 0.85 mg/dL 0.70-1.30 [facility] Comment on above: The validity of the calculated GFR & GFRAA in patients over 70 years has not been determined. Clinical correlation is essential. Serum or plasma urea nitroge n measurement (mass/volume)Ordered By: Carlos Cavazos on 11-22-2022 Urea nitrogen [Mass/Vol] 20 mg/dL 7-18 [facility] Thin prep Papanicolaou smear with manual screeningOrdered By: Carlos Cavazos on 11-22-2022 Thin prep Papanicolaou smear with manual screening 8 5-15 [facility] Laboratory - CoagulationOrde red By: Carlos Cavazos on 11-09-2022 INR Coag (Bld) [Relative time] 2.1 {INR} [facility] Comment on above: Critical Value > 4.0 Whole blood prothrombin time Ordered By: Carlos Cavazos on 11-09-2022 PT Coag (Bld) [Time] 22.6 s 11.7-14.9 [facility] - CoagulationOrde red By: Carlos Cavazos on 10-26-2022 INR Coag (Bld) [Relative time] 2.6 {INR} [facility] Comment on above: Critical Value > 4.0 Whole blood prothrombin time Ordered By: Carlos Cavazos on 10-26-2022 PT Coag (Bld) [Time] 28.5 s 11.7-14.9 [facility] - CoagulationOrde red By: Carlos Cavazos on 10-12-2022 INR Coag (Bld) [Relative time] 2.4 {INR} [facility] Comment on above: Critical Value > 4.0 Whole blood prothrombin time Ordered By: Carlos Cavazos on 10-12-2022 PT Coag (Bld) [Time] 26.4 s 11.7-14.9 [facility] - CoagulationOrde red By: Carlos Cavazos on 10-05-2022 INR Coag (Bld) [Relative time] 2.6 {INR} [facility] Comment on above: Critical Value > 4.0 Whole blood prothrombin time Ordered By: Carlos Cavazos on 10-05-2022 PT Coag (Bld) [Time] 28.0 s 11.7-14.9 [facility] - CoagulationOrde red By: Carlos Cavazos on 09-28-2022 INR Coag (Bld) [Relative time] 2.7 {INR} [facility] Comment on above: Critical Value > 4.0 Whole blood prothrombin time Ordered By: Carlos Cavazos on 09-28-2022 PT Coag (Bld) [Time] 28.9 s 11.7-14.9 [facility] - CoagulationOrde red By: Carlos Cavazos on 09-14-2022 INR Coag (Bld) [Relative time] 2.5 {INR} [facility] Comment on above: Critical Value > 4.0 Whole blood prothrombin time Ordered By: Carlos Cavazos on 09-14-2022 PT Coag (Bld) [Time] 27.4 s 11.7-14.9 [facility] - CoagulationOrde red By: Carlos Cavazos on 08-31-2022 INR Coag (Bld) [Relative time] 2.3 {INR} [facility] Comment on above: Critical Value > 4.0 Whole blood prothrombin time Ordered By: Carlos Cavazos on 08-31-2022 PT Coag (Bld) [Time] 25.4 s 11.7-14.9 [facility] Basophil percentageOrdered B y: Carlos Cavazos on 08-23-2022 Chloride [Moles/Vol] 108 mmol/L 98-107 [facility] Glucose [Mass/Vol] 86 mg/dL 74-106 [facility] Potassium [Moles/Vol] 4.3 mmol/L 3.5-5.1 [facility] Sodium [Moles/Vol] 136 mmol/L 136-145 [facility] WBC (Bld) [#/Vol] 10.0 10*3/uL 4.4-11.0 [facility] Blood erythrocytes count (nu mber/volume)Ordered By: Carlos Cavazos on 08-23-2022 RBC (Bld) [#/Vol] 4.77 10*6/uL 4.6-6.2 [facility] Blood hemoglobin measurement (mass/volume)Ordered By: Carlos Cavazos on 08-23-2022 Hemoglobin (Bld) [Mass/Vol] 12.5 g/dL 13.0-16.5 [facility] Blood platelet mean volumeOr dered By: Carlos Cavazos on 08-23-2022 Platelet mean volume (Bld) [Entitic vol] 11.0 fL 6.2-12.0 [facility] Determination of erythrocyte mean corpuscular volume (MCV)Ordered By: Carlos Cavazos on 08-23-2022 MCV (RBC) [Entitic vol] 84.3 fL 80-94 [facility] Hematocrit Auto (Bld) [Volum e fraction]Ordered By: Carlos Cavazos on 08-23-2022 Hematocrit (Bld) [Volume fraction] 40.2 % 40-54 [facility] Laboratory - Chemistry and C hemistry - challengeOrdered By: Carlos Cavazos on 08-23-2022 CO2 [Moles/Vol] 24.0 mmol/L 21.0-32.0 [facility] Urea nitrogen/Creatinine [Mass ratio] 22.8 mg/mg 10-20 [facility] Laboratory - Hematology and Cell countsOrdered By: Carlos Cavazos on 08-23-2022 Erythrocyte distribution width (RBC) [Entitic vol] 49.3 fL 35.1-43.9 [facility] Erythrocyte distribution width (RBC) [Ratio] 16.0 % 11.6-14.6 [facility] MCH (RBC) [Entitic mass] 26.2 pg 27.0-32.0 [facility] MCHC Auto (RBC) [Mass/Vol]Or dered By: Carlos Cavazos on 08-23-2022 MCHC (RBC) [Mass/Vol] 31.1 g/dL 32-36 [facility] No Panel InformationOrdered By: Carlos Cavazos on 08-23-2022 Estimated GFR (MDRD) Amer 134 mL/min >60 [facility] Comment on above: GFR Calc Estimated GFR (MDRD) Non-Af Amer 110 mL/min >60 [facility] Comment on above: Non- GFR Calc Platelets bldOrdered By: Ted Cavazos on 08-23-2022 Platelets (Bld) [#/Vol] 268 10*3/uL 150-450 [facility] Serum or plasma calcium oral urement (mass/volume)Ordered By: Carlos Cavazos on 08-23-2022 Calcium [Mass/Vol] 9.1 mg/dL 8.5-10.1 [facility] Serum or plasma creatinine m easurement (mass/volume)Ordered By: Carlos Cavazos on 08-23-2022 Creatinine [Mass/Vol] 0.74 mg/dL 0.70-1.30 [facility] Comment on above: The validity of the calculated GFR & GFRAA in patients over 70 years has not been determined. Clinical correlation is essential. Serum or plasma urea nitroge n measurement (mass/volume)Ordered By: Carlos Cavazos on 08-23-2022 Urea nitrogen [Mass/Vol] 17 mg/dL 7-18 [facility] Thin prep Papanicolaou smear with manual screeningOrdered By: Carlos Cavazos on 08-23-2022 Thin prep Papanicolaou smear with manual screening 4 5-15 [facility] - CoagulationOrde red By: Carlos Cavazos on 08-17-2022 INR Coag (Bld) [Relative time] 2.8 {INR} [facility] Comment on above: Critical Value > 4.0 Whole blood prothrombin time Ordered By: Carlos Cavazos on 08-17-2022 PT Coag (Bld) [Time] 29.6 s 11.7-14.9 [facility] - CoagulationOrde red By: Carlos Cavazos on 08-14-2022 INR Coag (Bld) [Relative time] 3.9 {INR} [facility] Comment on above: Critical Value > 4.0 Whole blood prothrombin time Ordered By: Carlos Cavazos on 08-14-2022 PT Coag (Bld) [Time] 40.6 s 11.7-14.9 [facility] - CoagulationOrde red By: Carlos Cavazos on 07-31-2022 INR Coag (Bld) [Relative time] 2.5 {INR} [facility] Comment on above: Critical Value > 4.0 Whole blood prothrombin time Ordered By: Carlos Cavazos on 07-31-2022 PT Coag (Bld) [Time] 26.8 s 11.7-14.9 [facility] INR in Blood by Coagulation assayOrdered By: Carlos Cavazos on 07-24-2022 INR Coag (Bld) [Relative time] 2.3 {INR} [facility] - CoagulationOrde red By: Carlos Cavazos on 07-24-2022 PT Coag (PPP) [Time] 24.7 s 11.7-14.9 [facility] - CoagulationOrde red By: Carlos Cavazos on 07-20-2022 INR Coag (Bld) [Relative time] 1.9 {INR} [facility] Comment on above: Critical Value > 4.0 Whole blood prothrombin time Ordered By: Carlos Cavazos on 07-20-2022 PT Coag (Bld) [Time] 20.6 s 11.7-14.9 [facility] - CoagulationOrde red By: Carlos Cavazos on 07-17-2022 INR Coag (Bld) [Relative time] 1.3 {INR} [facility] Comment on above: Critical Value > 4.0 Whole blood prothrombin time Ordered By: Carlos Cavazos on 07-17-2022 PT Coag (Bld) [Time] 15.9 s 11.7-14.9 [facility] Basophil percentageOrdered B y: Carlos Cavazos on 07-11-2022 Chloride [Moles/Vol] 105 mmol/L 98-107 [facility] Glucose [Mass/Vol] 97 mg/dL 74-106 [facility] Potassium [Moles/Vol] 3.9 mmol/L 3.5-5.1 [facility] Sodium [Moles/Vol] 140 mmol/L 136-145 [facility] WBC (Bld) [#/Vol] 9.4 10*3/uL 4.4-11.0 [facility] Blood erythrocytes count (nu mber/volume)Ordered By: Carlos Cavazos on 07-11-2022 RBC (Bld) [#/Vol] 4.66 10*6/uL 4.6-6.2 [facility] Blood hemoglobin measurement (mass/volume)Ordered By: Carlos Cavazos on 07-11-2022 Hemoglobin (Bld) [Mass/Vol] 12.0 g/dL 13.0-16.5 [facility] Blood platelet mean volumeOr dered By: Carlos Cavazos on 07-11-2022 Platelet mean volume (Bld) [Entitic vol] 10.4 fL 6.2-12.0 [facility] Determination of erythrocyte mean corpuscular volume (MCV)Ordered By: Carlos Cavazos on 07-11-2022 MCV (RBC) [Entitic vol] 83.7 fL 80-94 [facility] Hematocrit Auto (Bld) [Volum e fraction]Ordered By: Carlos Cavazos on 07-11-2022 Hematocrit (Bld) [Volume fraction] 39.0 % 40-54 [facility] Laboratory - Chemistry and C hemistry - challengeOrdered By: Carlos Cavazos on 07-11-2022 CO2 [Moles/Vol] 28.0 mmol/L 21.0-32.0 [facility] Urea nitrogen/Creatinine [Mass ratio] 23.0 mg/mg 10-20 [facility] Laboratory - Hematology and Cell countsOrdered By: Carlos Cavazos on 07-11-2022 Erythrocyte distribution width (RBC) [Entitic vol] 51.0 fL 35.1-43.9 [facility] Erythrocyte distribution width (RBC) [Ratio] 16.8 % 11.6-14.6 [facility] MCH (RBC) [Entitic mass] 25.8 pg 27.0-32.0 [facility] MCHC Auto (RBC) [Mass/Vol]Or dered By: Carlos Cavazos on 07-11-2022 MCHC (RBC) [Mass/Vol] 30.8 g/dL 32-36 [facility] No Panel InformationOrdered By: Carlos Cavazos on 07-11-2022 Estimated GFR (MDRD) Amer 126 mL/min >60 [facility] Comment on above: GFR Calc Estimated GFR (MDRD) Non-Af Amer 104 mL/min >60 [facility] Comment on above: Non- GFR Calc Platelets bldOrdered By: Ted Cavazos on 07-11-2022 Platelets (Bld) [#/Vol] 291 10*3/uL 150-450 [facility] Serum or plasma calcium oral urement (mass/volume)Ordered By: Carlos Cavazos on 07-11-2022 Calcium [Mass/Vol] 9.2 mg/dL 8.5-10.1 [facility] Serum or plasma creatinine m easurement (mass/volume)Ordered By: Carlos Cavazos on 07-11-2022 Creatinine [Mass/Vol] 0.78 mg/dL 0.70-1.30 [facility] Comment on above: The validity of the calculated GFR & GFRAA in patients over 70 years has not been determined. Clinical correlation is essential. Serum or plasma urea nitroge n measurement (mass/volume)Ordered By: Carlos Cavazos on 07-11-2022 Urea nitrogen [Mass/Vol] 18 mg/dL 7-18 [facility] Thin prep Papanicolaou smear with manual screeningOrdered By: Carlos Cavazos on 07-11-2022 Thin prep Papanicolaou smear with manual screening 7 5-15 [facility] Laboratory - CoagulationOrde red By: Carlos Cavazos on 07-10-2022 INR Coag (Bld) [Relative time] 1.8 {INR} [facility] Comment on above: Critical Value > 4.0 Whole blood prothrombin time Ordered By: Carlos Cavazos on 07-10-2022 PT Coag (Bld) [Time] 21.0 s 11.7-14.9 [facility] - CoagulationOrde red By: Carlos Cavazos on 07-03-2022 INR Coag (Bld) [Relative time] 1.9 {INR} [facility] Comment on above: Critical Value > 4.0 Whole blood prothrombin time Ordered By: Carlos Cavazos on 07-03-2022 PT Coag (Bld) [Time] 22.7 s 11.7-14.9 [facility] INR in Blood by Coagulation assayOrdered By: Carlos Cavazos on 06-27-2022 INR Coag (Bld) [Relative time] 2.9 {INR} [facility] - CoagulationOrde red By: Carlos Cavazos on 06-27-2022 PT Coag (PPP) [Time] 29.9 s 11.7-14.9 [facility] - CoagulationOrde red By: Carlos Cavazos on 06-13-2022 INR Coag (Bld) [Relative time] 2.1 {INR} [facility] Comment on above: Critical Value > 4.0 Whole blood prothrombin time Ordered By: Carlos Cavazos on 06-13-2022 PT Coag (Bld) [Time] 24.4 s 11.7-14.9 [facility] - CoagulationOrde red By: Carlos Cavazos on 06-06-2022 INR Coag (Bld) [Relative time] 1.5 {INR} [facility] Comment on above: Critical Value > 4.0 Whole blood prothrombin time Ordered By: Carlos Cavazos on 06-06-2022 PT Coag (Bld) [Time] 18.4 s 11.7-14.9 [facility] Basophil percentageOrdered B y: Carlos Cavazos on 05-30-2022 Chloride [Moles/Vol] 105 mmol/L 98-107 [facility] Glucose [Mass/Vol] 95 mg/dL 74-106 [facility] Potassium [Moles/Vol] 3.9 mmol/L 3.5-5.1 [facility] Sodium [Moles/Vol] 140 mmol/L 136-145 [facility] WBC (Bld) [#/Vol] 7.6 10*3/uL 4.4-11.0 [facility] Blood erythrocytes count (nu mber/volume)Ordered By: Carlos Cavazos on 05-30-2022 RBC (Bld) [#/Vol] 4.79 10*6/uL 4.6-6.2 [facility] Blood hemoglobin measurement (mass/volume)Ordered By: Carlos Cavazos on 05-30-2022 Hemoglobin (Bld) [Mass/Vol] 12.1 g/dL 13.0-16.5 [facility] Blood platelet mean volumeOr dered By: Carlos Cavazos on 05-30-2022 Platelet mean volume (Bld) [Entitic vol] 10.4 fL 6.2-12.0 [facility] Determination of erythrocyte mean corpuscular volume (MCV)Ordered By: Carlos Cavazos on 05-30-2022 MCV (RBC) [Entitic vol] 82.5 fL 80-94 [facility] Hematocrit Auto (Bld) [Volum e fraction]Ordered By: Carlos Cavazos on 05-30-2022 Hematocrit (Bld) [Volume fraction] 39.5 % 40-54 [facility] INR in Blood by Coagulation assayOrdered By: Carlos Cavazos on 05-30-2022 INR Coag (Bld) [Relative time] 1.9 {INR} [facility] Laboratory - Chemistry and C hemistry - challengeOrdered By: Carlos Cavazos on 05-30-2022 CO2 [Moles/Vol] 27.0 mmol/L 21.0-32.0 [facility] Urea nitrogen/Creatinine [Mass ratio] 21.4 mg/mg 10-20 [facility] Laboratory - CoagulationOrde red By: Carlos Cavazos on 05-30-2022 PT Coag (PPP) [Time] 21.6 s 11.7-14.9 [facility] Laboratory - Hematology and Cell countsOrdered By: Carlos Cavazos on 05-30-2022 Erythrocyte distribution width (RBC) [Entitic vol] 48.8 fL 35.1-43.9 [facility] Erythrocyte distribution width (RBC) [Ratio] 16.2 % 11.6-14.6 [facility] MCH (RBC) [Entitic mass] 25.3 pg 27.0-32.0 [facility] MCHC Auto (RBC) [Mass/Vol]Or dered By: Carlos Cavazos on 05-30-2022 MCHC (RBC) [Mass/Vol] 30.6 g/dL 32- [facility] No Panel InformationOrdered By: Carlos Cavazos on 05-30-2022 Estimated GFR (MDRD) Amer 133 mL/min >60 [facility] Comment on above: GFR Calc Estimated GFR (MDRD) Non-Af Amer 110 mL/min >60 [facility] Comment on above: Non- GFR Calc Platelets bldOrdered By: Ted Cavazos on 05-30-2022 Platelets (Bld) [#/Vol] 308 10*3/uL 150-450 [facility] Serum or plasma calcium oral urement (mass/volume)Ordered By: Carlos Cavazos on 05-30-2022 Calcium [Mass/Vol] 9.1 mg/dL 8.5-10.1 [facility] Serum or plasma creatinine m easurement (mass/volume)Ordered By: Carlos Cavazos on 05-30-2022 Creatinine [Mass/Vol] 0.75 mg/dL 0.70-1.30 [facility] Comment on above: The validity of the calculated GFR & GFRAA in patients over 70 years has not been determined. Clinical correlation is essential. Serum or plasma urea nitroge n measurement (mass/volume)Ordered By: Carlos Cavazos on 05-30-2022 Urea nitrogen [Mass/Vol] 16 mg/dL 7-18 [facility] Thin prep Papanicolaou smear with manual screeningOrdered By: Carlos Cavazos on 05-30-2022 Thin prep Papanicolaou smear with manual screening 8 5-15 [facility] Laboratory - CoagulationOrde red By: Carlos Cavazos on 05-16-2022 INR Coag (Bld) [Relative time] 2.6 {INR} [facility] Comment on above: Critical Value > 4.0 Whole blood prothrombin time Ordered By: Carlos Cavazos on 05-16-2022 PT Coag (Bld) [Time] 29.9 s 11.7-14.9 [facility] - CoagulationOrde red By: Carlos Cavazos on 05-02-2022 INR Coag (Bld) [Relative time] 2.0 {INR} [facility] Comment on above: Critical Value > 4.0 Whole blood prothrombin time Ordered By: Carlos Cavazos on 05-02-2022 PT Coag (Bld) [Time] 23.2 s 11.7-14.9 [facility] - CoagulationOrde red By: Carlos Cavazos on 04-27-2022 INR Coag (Bld) [Relative time] 2.7 {INR} [facility] Comment on above: Critical Value > 4.0 Whole blood prothrombin time Ordered By: Carlos Cavazos on 04-27-2022 PT Coag (Bld) [Time] 31.1 s 11.7-14.9 [facility] - CoagulationOrde red By: Carlos Cavazos on 04-26-2022 INR Coag (Bld) [Relative time] 2.8 {INR} [facility] Comment on above: Critical Value > 4.0 Whole blood prothrombin time Ordered By: Carlos Cavazos on 04-26-2022 PT Coag (Bld) [Time] 32.6 s 11.7-14.9 [facility] - CoagulationOrde red By: Carlos Cavazos on 04-11-2022 INR Coag (Bld) [Relative time] 2.9 {INR} [facility] Comment on above: Critical Value > 4.0 Whole blood prothrombin time Ordered By: Carlos Cavazso on 04-11-2022 PT Coag (Bld) [Time] 32.8 s 11.7-14.9 [facility] - CoagulationOrde red By: Carlos Cavazos on 03-28-2022 INR Coag (Bld) [Relative time] 2.1 {INR} [facility] Comment on above: Critical Value > 4.0 Whole blood prothrombin time Ordered By: Carlos Cavazos on 03-28-2022 PT Coag (Bld) [Time] 24.8 s 11.7-14.9 [facility] - CoagulationOrde red By: Carlos Cavazos on 03-23-2022 INR Coag (Bld) [Relative time] 1.7 {INR} [facility] Comment on above: Critical Value > 4.0 Whole blood prothrombin time Ordered By: Carlos Cavazos on 03-23-2022 PT Coag (Bld) [Time] 20.9 s 11.7-14.9 [facility] - CoagulationOrde red By: Carlos Cavazos on 03-16-2022 INR Coag (Bld) [Relative time] 1.7 {INR} [facility] Comment on above: Critical Value > 4.0 Whole blood prothrombin time Ordered By: Carlos Cavazos on 03-16-2022 PT Coag (Bld) [Time] 19.9 s 11.7-14.9 [facility] - CoagulationOrde red By: Carlos Cavazos on 03-09-2022 INR Coag (Bld) [Relative time] 1.8 {INR} [facility] Comment on above: Critical Value > 4.0 Whole blood prothrombin time Ordered By: Carlos Cavazos on 03-09-2022 PT Coag (Bld) [Time] 21.9 s 11.7-14.9 [facility] - CoagulationOrde red By: Carols Cavazos on 03-06-2022 INR Coag (Bld) [Relative time] 1.7 {INR} [facility] Comment on above: Critical Value > 4.0 Whole blood prothrombin time Ordered By: Carlos Cavazos on 03-06-2022 PT Coag (Bld) [Time] 20.0 s 11.7-14.9 [facility] CBC with Auto Differentialon 03-02-2022 [...] 10*3/uL [facility] Test Performed by [facility], [address] [place] [id number] [place] [address] [facility] [address] HEAD WO CONTRASTon 2021 Patient Name: ANDREW SIFUENTES Computed Tomography ACCESSION EXAM DATE/TIME PROCEDURE ORDERING PROVIDER [id number] 03/02/2022 13:[address] Head or Brain w/o [id number] -LANETTE MUNGUIA Contrast CPT code 74088 Reason For Exam (CT Head or Brain [...] tubes (parent active on the left for CONTRACT NE[employer]OTIATION SPECIALIST shunting and disconnected on the right). 2. No definite evidence of acute infarction (MRI more sensitive), mass lesion, nor hemorrhage. Report Dictated on --- Final --- Dictated: 03/02/2022 1:35 pm Dictating Physician: MD GUTIERREZ WILLIAM Signed Date and Time: 03/02/2022 1:39 pm Signed by: MD GUTIERREZ WILLIAM Transcribed Date and Time: 03/02/2022 1:35 [facility] RAD Anant Gutierrez MD - 03/02/2022 [facility] Name[id number] Comput[facility] Tomography ACCESSION EXAM DATE/TIME PROCEDURE ORDERING PROVIDER [id number] 03/02/2022 13:[address] Head or Brain w/o [id number] -LANETTE MUNGUIA Contrast CPT code 94471 Reason For Exam (CT Head or Brain [...] tubes (parent active on the left for CONTRACT NEGOTIATION SPECIALIST shunting and disconnected on the right). 2. No definite evidence of acute infarction (MRI more sensitive), mass lesion, nor hemorrhage. Report Dictated on --- Final --- Dictated: 03/02/2022 1:35 pm Dictating Physician: MD GUTIERREZ WILLIAM Signed Date and Time: 03/02/2022 1:39 pm Signed by: MD GUTIERRZE WILLIAM Transcribed Date and Time: 03/02/2022 1:35 [facility] Work Phone: Radiology Study observation (narrative) [facility] Work Phone: CT HEAD WO CONTRASTOrdered B y: Anant Gutierrez on 03-02-2022 [facility] Work Phone: CT Head or Brain w/o Contras ton 03-02-2022 CT Head or Brain w/o Contrast Patient Name: ANDREW SIFUENTES Computed Tomography ACCESSION EXAM DATE/TIME PROCEDURE ORDERING PROVIDER [id number] 03/02/2022 13:[address] Head or Brain w/o [id number] -LANETTE MUNGUIA Contrast CPT code 45258 Reason For Exam (CT Head or Brain [...] tubes (parent active on the left for CONTRACT NEGOTIATION SPECIALIST shunting and disconnected on the right). 2. [...] Performed By: #### H EMDF, PT, CMP3 ####[facility] [email or web address] [id number] [employer] [address] ALP [Catalytic activity/Vol] 128 U/L High 38-126 [facility] Comment on above: Performed By: #### H TIERA PT CMP3 ####[address] [place], [place] ALT [Catalytic activity/Vol] 12 U/L Normal 0-49 [facility] Comment on above: Result Comment: The ALT test is performed by an updated assay method. Please note that the reference intervals have been changed and are now sex specific. Performed By: #### H TIERA PT CMP3 ####[address] [place], [place] Anion gap [Moles/Vol] 7 mmol/L Normal 3-13 [facility] Comment on above: Performed By: #### H CHRISTEL MOTT CMP3 ####[address] [address] [place], [place] AST [Catalytic activity/Vol] 24 U/L Normal 15-46 [facility] Comment on above: Performed By: #### H CHRISTEL MOTT CMP3 ####[address] [address] [place], [place] Bilirubin [Mass/Vol] 0.4 mg/dL Normal 0.2-1.3 [facility] Comment on above: Performed By: #### H CHRISTEL MOTT CMP3 ####[address] CO2 [Moles/Vol] 27 mmol/L Normal 22-30 [facility] Comment on above: Performed By: #### H TIERA PT CMP3 ####[address] [place], [place] Glucose [Mass/Vol] 109 mg/dL High 70-100 [facility] Comment on above: Performed By: #### H TIERA PT CMP3 ####[address] [place], [place] Protein [Mass/Vol] 8.1 g/dL Normal 6.3-8.2 [facility] Comment on above: Performed By: #### H TIERA PT CMP3 ####[address] [address] [place], [place] Urea nitrogen [Mass/Vol] 22 mg/dL High 7-17 [facility] Comment on above: Performed By: #### H CHRISTEL MOTT CMP3 ####[facility] [email or web address] [id number] [place], [place] Creatinine [Mass/Vol] 0.63 mg/dL Normal 0.52-1.25 [facility] Comment on above: Performed By: #### H CHRISTEL MOTT CMP3 ####[address] [place], [place] eGFR OTHER > 90.0 Normal >60 [...] Performed By: #### H CHRISTEL MOTT CMP3 ####[facility] [email or web address] [id number] [place], [place] GFR/1.73 sq M.predicted among blacks MDRD (S/P/Bld) [Vol rate/Area] mL/min/{1.73_m2} Normal >60 [facility] Comment on above: Performed By: #### H CHRISTEL MOTT CMP3 ####[facility] [email or web address] [id number] [place], [place] Albumin [Mass/Vol] 4.1 g/dL Normal 3.5-5.0 [facility] Comment on above: Performed By: #### H CHRISTEL MOTT CMP3 ####[facility] [place] [address] Chloride [Moles/Vol] 106 mmol/L Normal 98-107 [facility] Comment on above: Performed By: #### H TIERA PT, CMP3 ####[facility] [place] [address] Potassium [Moles/Vol] 3.7 mmol/L Normal 3.5-5.1 [facility] Comment on above: Performed By: #### H TIERA PT, CMP3 ####[facility] [place] [address] Sodium [Moles/Vol] 140 mmol/L Normal 135-145 [facility] Comment on above: Performed By: #### H CHRISTEL MOTT, CMP3 ####[address] [place] [address] Comprehensive Metabolic Pane kiel 03-02-2022 Albumin [Mass/Vol] 4.1 g/dL 3.5 - 5.0 g/dL [facility] ALP (Bld) [Catalytic activity/Vol] 128 U/L High 38 - 126 U/L [facility] ALT [Catalytic activity/Vol] 12 U/L 0 - 49 U/L [facility] Comment on above: The ALT test is [...] P INF mL/min [facility] EGFR IF NonAfrican Pakistani mL/min 60 - PINF mL/min [facility] Comment [...] 109 mg/dL High 70 - 100 mg/dL [facility] Interpretation and review of laboratory results Abnormal [facility] Potassium [Moles/Vol] 3.7 mmol/L 3.5 - 5.1 mmol/L [facility] Protein [Mass/Vol] 8.1 g/dL 6.3 - 8.2 g/dL [facility] Sodium [Moles/Vol] 140 mmol/L 135 - 145 mmol/L [facility] Urea nitrogen (BldV) [Mass/Vol] 22 mg/dL High 7 - 17 mg/dL [facility] Test Performed by [id number] [place] [address] LAB [facility] ED Provider Noteon 2 ED Provider Note [facility] EMERGENCY DEPT EMERGENCY DEPARTMENT ENCOUNTER Pt Name: Andrew Sifuentes Birthdate 1950 Date of evaluation: 03/02/2022 Provider: Lanette Munguia DO CHIEF COMPLAINT Chief Complaint Patient presents with Fall Patient had unwitnessed fall at [facility] landed on butt. Is on thinners, denies LOC, denies head injury has no complaints at this time HISTORY OF PRESENT ILLNESS (Location/Symptom, Timing/Onset, Context/Setting, Quality, Duration, Modifying Factors, Severity) Note limiting factors. I wore a N-95 mask for the entirety of this encounter. Andrew Sifuentes is a 71 y.o. male medical history of hydrocephalus status post CONTRACT NEGOTIATION SPECIALIST shunt, history of DVT on Coumadin who presents to the emergency department from [facility] for evaluation following mechanical fall. Patient [...] Hemorrhoids Hydrocephalus, adult (HCC) Kidney stone Neuropathy CONTRACT NEGOTIATION SPECIALIST (ventriculoperitoneal) shunt status SURGICAL HISTORY Past Surgical [...] CONTRAST R (more content not included)... Normal [place] Hemogram w/ [employer] 03-02 Abs Baso Cnt 0.2 10*3/uL Normal 0.0-0.2 [facility] on above: Performed By: #### H EMDF, PT, CMP3 ####[address] [place] [address] Abs Neutrophile Cnt 10.7 10*3/uL High 1.8-7.0 [facility] Comment on above: Performed By: #### H EMDF PT, CMP3 ####[address] [address] Basophils/100 WBC (Bld) 1.1 % Normal 0.0-2.0 [facility] Comment on above: Performed By: #### H EMDF PT, CMP3 ####[address] Eosinophils (Bld) [#/Vol] 0.1 10*3/uL Normal 0.0-0.5 [facility] Comment on above: Performed By: #### H EMDF PT, CMP3 ####[address] Eosinophils/100 WBC (Bld) 0.5 % Low 1.0-6.0 [facility] Comment on above: Performed By: #### H EMDF PT, CMP3 ####[address] Granulocytes/100 WBC (Bld) 73.9 % Normal 40.0-80.0 [facility] Comment on above: Performed By: #### H EMDF PT, CMP3 ####[address] Lymphocytes (Bld) [#/Vol] 3.0 10*3/uL Normal 1.0-4.3 [facility] Comment on above: Performed By: #### H EMDF PT, CMP3 ####[address] Lymphocytes/100 WBC (Bld) 20.6 % Normal 20.0-40.0 [facility] Comment on above: Performed By: #### H EMDF PT, CMP3 ####[address] Monocytes (Bld) [#/Vol] 0.6 10*3/uL Normal 0.0-0.8 [facility] Comment on above: Performed By: #### H TIERA PT, CMP3 ####[address] [place], [place] Monocytes/100 WBC (Bld) 3.9 % Normal 2.0-10.0 [facility] Comment on above: Performed By: #### H EMDF PT, CMP3 ####[address] [place], [place] Platelet mean volume (Bld) [Entitic vol] 8.5 fL Normal 7.4-12.4 [facility] Comment on above: Result Comment: MPV is a calculated measurement using platelet volume ratio. Performed By: #### H EMDHeydi PT, CMP3 ####[address] Platelets (Bld) [#/Vol] 411 10*3/uL Normal 140-440 [facility] Comment on above: Performed By: #### H EMDHeydi PT, CMP3 ####[address] [place], [place] Erythrocyte distribution width (RBC) [Ratio] 17.0 % High 11.5-14.5 [facility] Comment on above: Performed By: #### H EMDF PT, CMP3 ####[address] [place], [place] Hematocrit (Bld) [Volume fraction] 37.4 % Low 40.0-52.0 [facility] Comment on above: Performed By: #### H EMDF, PT, CMP3 ####[address] Hemoglobin (Bld) [Mass/Vol] 12.1 g/dL Low 13.0-18.0 [facility] Comment on above: Performed By: #### H EMDF, PT, CMP3 ####[address] [place], [place] MCH (RBC) [Entitic mass] 26.2 pg Normal 26.0-34.0 [facility] Comment on above: Performed By: #### H EMDF, PT, CMP3 ####[address] [place], [place] MCHC 32.3 % Normal 32.0-36.0 [facility] Comment on above: Performed By: #### H EMDF, PT, CMP3 ####[address] MCV (RBC) [Entitic vol] 81.1 fL Normal 80.0-98.0 [facility] Comment on above: Performed By: #### H EMDF PT, CMP3 ####[address] [place], [place] RBC (Bld) [#/Vol] 4.61 10*6/uL Normal 4.40-5.90 [facility] Comment on above: Performed By: #### H EMDF, PT, CMP3 ####[address] WBC (Bld) [#/Vol] 14.5 10*3/uL High 3.6-10.7 [facility] Comment on above: Performed By: #### H EMDF, PT, CMP3 ####[address] Prothrombin Timeon 2 INR 1.9 High [...] Performed By: #### H EMDF, PT, CMP3 ####[address] [address] PT Coag (PPP) [Time] 18.9 s High 9.0-12.0 [facility] Comment on above: Result Comment: . Performed By: #### H EMDF, PT, CMP3 ####[facility] [place] [address] Protime-INRon 03-02-2022 INR Coag (Bld) [Relative time] 1.9 {INR} High [facility] Comment on above: Recommended Anticoag [...] Interpretation and review of laboratory results Abnormal [facility] PT Coag (PPP) [Time] 18.9 s High 9.0 - 12.0 s [facility] Comment on above: . Test Performed by [facility], [address] [place] [address] [facility] Laboratory - CoagulationOrde red By: Carlos Cavazos on 02-20-2022 INR Coag (Bld) [Relative time] 2.6 {INR} [facility] Comment on above: Critical Value > 4.0 Whole blood prothrombin time Ordered By: Carlos Cavazos on 02-20-2022 PT Coag (Bld) [Time] 30.1 s 11.7-14.9 [facility] Laboratory - CoagulationOrde red By: Carlos Cavazos on 02-13-2022 INR Coag (Bld) [Relative time] 2.3 {INR} [facility] Comment on above: Critical Value > 4.0 Whole blood prothrombin time Ordered By: Carlos Cavazos on 02-13-2022 PT Coag (Bld) [Time] 26.7 s 11.7-14.9 [facility] Laboratory - CoagulationOrde red By: Carlos Cavazos on 02-06-2022 INR Coag (Bld) [Relative time] 2.3 {INR} [facility] Comment on above: Critical Value > 4.0 Whole blood prothrombin time Ordered By: Carlos Cavazos on 02-06-2022 PT Coag (Bld) [Time] 26.6 s 11.7-14.9 [facility] Laboratory - Coagulationon 0 01-30-2022 INR Coag (Bld) [Relative time] 1.7 {INR} [facility] Work Phone: Comment on above: Critical Value > 4.0 Whole blood prothrombin time on 01-30-2022 PT Coag (Bld) [Time] 20.1 s 11.7-14.9 [facility] Work Phone: Laboratory - Coagulationon 0 01-26-2022 INR Coag (Bld) [Relative time] 1.8 {INR} [facility] Work Phone: Comment on above: Critical Value > 4.0 Whole blood prothrombin time on 01-26-2022 PT Coag (Bld) [Time] 21.8 s 11.7-14.9 [facility] Work Phone: Laboratory - Coagulationon 0 01-19-2022 INR Coag (Bld) [Relative time] 2.2 {INR} [facility] Work Phone: Comment on above: Critical Value > 4.0 Whole blood prothrombin time on 01-19-2022 PT Coag (Bld) [Time] 25.7 s 11.7-14.9 [facility] Work Phone: INR in Blood by Coagulation assayon 01-10-2022 INR Coag (Bld) [Relative time] 1.8 {INR} [facility] Work Phone: Laboratory - Coagulationon 0 01-10-2022 PT Coag (PPP) [Time] 20.9 s 11.7-14.9 [facility] Work Phone: Basophil percentageon 2021 Chloride [Moles/Vol] 107 mmol/L 98-107 [facility] Work Phone: Glucose [Mass/Vol] 82 mg/dL 74-106 [facility] Work Phone: [phone] Potassium [Moles/Vol] 3.4 mmol/L 3.5-5.1 [facility] Work Phone: Sodium [Moles/Vol] 143 mmol/L 136-145 [facility] Work Phone: WBC (Bld) [#/Vol] 10.4 10*3/uL 4.4-11.0 [facility] Work Phone: Blood erythrocytes count (nu mber/volume)on 01-05-2022 RBC (Bld) [#/Vol] 4.27 10*6/uL 4.6-6.2 [facility] Work Phone: Blood hemoglobin measurement (mass/volume)on 01-05-2022 Hemoglobin (Bld) [Mass/Vol] 11.2 g/dL 13.0-16.5 [facility] Work Phone: Blood platelet mean volumeon 01-05-2022 Platelet mean volume (Bld) [Entitic vol] 10.3 fL 6.2-12.0 [facility] Work Phone: Determination of erythrocyte mean corpuscular volume (MCV)on 01-05-2022 MCV (RBC) [Entitic vol] 84.8 fL 80-94 [facility] Work Phone: Hematocrit Auto (Bld) [Volum e fraction]on 01-05-2022 Hematocrit (Bld) [Volume fraction] 36.2 % 40-54 [facility] Work Phone: Laboratory - Chemistry and C hemistry - challengeon 01-05-2022 CO2 [Moles/Vol] 28.0 mmol/L 21.0-32.0 [facility] Work Phone: Urea nitrogen/Creatinine [Mass ratio] 20.0 mg/mg 10-20 [facility] Work Phone: Laboratory - Hematology and Cell countson 01-05-2022 Erythrocyte distribution width (RBC) [Entitic vol] 51.8 fL 35.1-43.9 [facility] Work Phone: Erythrocyte distribution width (RBC) [Ratio] 16.8 % 11.6-14.6 [facility] Work Phone: MCH (RBC) [Entitic mass] 26.2 pg 27.0-32.0 [facility] Work Phone: MCHC Auto (RBC) [Mass/Vol]on 01-05-2022 MCHC (RBC) [Mass/Vol] 30.9 g/dL 32-36 [facility] Work Phone: No Panel Informationon 01-05 Estimated GFR (MDRD) Amer 133 mL/min >60 [facility] Work Phone: Comment on above: GFR Calc Estimated GFR (MDRD) Non-Af Amer 110 mL/min >60 [facility] Work Phone: Comment on above: Non- GFR Calc Platelets bldon 01-05-2022 Platelets (Bld) [#/Vol] 373 10*3/uL 150-450 [facility] Work Phone: Serum or plasma calcium oral urement (mass/volume)on 01-05-2022 Calcium [Mass/Vol] 8.8 mg/dL 8.5-10.1 [facility] Work Phone: Serum or plasma creatinine m easurement (mass/volume)on 01-05-2022 Creatinine [Mass/Vol] 0.75 mg/dL 0.70-1.30 [facility] Work Phone: Comment on above: The validity of the calculated GFR & GFRAA in patients over 70 years has not been determined. Clinical correlation is essential. Serum or plasma urea nitroge n measurement (mass/volume)on 01-05-2022 Urea nitrogen [Mass/Vol] 15 mg/dL 7-18 [facility] Work Phone: Thin prep Papanicolaou smear with manual screeningon 01-05-2022 Thin prep Papanicolaou smear with manual screening 8 5-15 [facility] Work Phone: Laboratory - Coagulationon 0 12-30-2021 INR Coag (Bld) [Relative time] 2.0 {INR} [facility] Work Phone: Comment on above: Critical Value > 4.0 Whole blood prothrombin time on 12-30-2021 PT Coag (Bld) [Time] 23.7 s 11.7-14.9 [facility] Work Phone: Basophil percentageon 2021 Chloride [Moles/Vol] 106 mmol/L 98-107 [facility] Work Phone: Glucose [Mass/Vol] 91 mg/dL 74-106 [facility] Work Phone: Potassium [Moles/Vol] 3.4 mmol/L 3.5-5.1 [facility] Work Phone: Sodium [Moles/Vol] 141 mmol/L 136-145 [facility] Work Phone: WBC (Bld) [#/Vol] 10.2 10*3/uL 4.4-11.0 [facility] Work Phone: Blood erythrocytes count (nu mber/volume)on 12-28-2021 RBC (Bld) [#/Vol] 4.22 10*6/uL 4.6-6.2 [facility] Work Phone: Blood hemoglobin measurement (mass/volume)on 12-28-2021 Hemoglobin (Bld) [Mass/Vol] 11.2 g/dL 13.0-16.5 [facility] Work Phone: Blood platelet mean volumeon 12-28-2021 Platelet mean volume (Bld) [Entitic vol] 10.1 fL 6.2-12.0 [facility] Work Phone: Determination of erythrocyte mean corpuscular volume (MCV)on 12-28-2021 MCV (RBC) [Entitic vol] 82.7 fL 80-94 [facility] Work Phone: Hematocrit Auto (Bld) [Volum e fraction]on 12-28-2021 Hematocrit (Bld) [Volume fraction] 34.9 % 40-54 [facility] Work Phone: Laboratory - Chemistry and C hemistry - challengeon 12-28-2021 CO2 [Moles/Vol] 30.0 mmol/L 21.0-32.0 [facility] Work Phone: Urea nitrogen/Creatinine [Mass ratio] 33.7 mg/mg 10-20 [facility] Work Phone: Laboratory - Hematology and Cell countson 12-28-2021 Erythrocyte distribution width (RBC) [Entitic vol] 49.1 fL 35.1-43.9 [facility] Work Phone: Erythrocyte distribution width (RBC) [Ratio] 16.5 % 11.6-14.6 [facility] Work Phone: MCH (RBC) [Entitic mass] 26.5 pg 27.0-32.0 [facility] Work Phone: MCHC Auto (RBC) [Mass/Vol]on 12-28-2021 MCHC (RBC) [Mass/Vol] 32.1 g/dL 32-36 [facility] Work Phone: No Panel Informationon 12-28 Estimated GFR (MDRD) Amer 174 mL/min >60 [facility] Work Phone: Comment on above: GFR Calc Estimated GFR (MDRD) Non-Af Amer 143 mL/min >60 [facility] Work Phone: Comment on above: Non- GFR Calc Platelets bldon 12-28-2021 Platelets (Bld) [#/Vol] 339 10*3/uL 150-450 [facility] Work Phone: Serum or plasma calcium oral urement (mass/volume)on 12-28-2021 Calcium [Mass/Vol] 8.6 mg/dL 8.5-10.1 [facility] Work Phone: Serum or plasma creatinine m easurement (mass/volume)on 12-28-2021 Creatinine [Mass/Vol] 0.59 mg/dL 0.70-1.30 [facility] Work Phone: Comment on above: The validity of the calculated GFR & GFRAA in patients over 70 years has not been determined. Clinical correlation is essential. Serum or plasma urea nitroge n measurement (mass/volume)on 12-28-2021 Urea nitrogen [Mass/Vol] 20 mg/dL 7-18 [facility] Work Phone: Thin prep Papanicolaou smear with manual screeningon 12-28-2021 Thin prep Papanicolaou smear with manual screening 5 5-15 [facility] Work Phone: CULTURE BLOODon 12-27-2021 Microscopic examination of blood, culture CULTURE BLOOD --> Status: F No growth at 5 days. Normal [facility] Comment on above: Performed By: #### C /BLD #### [facility] [employer] [place] [address] Laboratory - Coagulationon 0 12-26-2021 INR Coag (Bld) [Relative time] 1.7 {INR} [facility] Work Phone: Comment on above: Critical Value > 4.0 Whole blood prothrombin time on 12-26-2021 PT Coag (Bld) [Time] 20.8 s 11.7-14.9 [facility] Work Phone: Basic Metabolic Panelon 12-05 Calcium [Mass/Vol] 8.8 mg/dL Normal 8.4-10.4 [facility] Comment on above: Performed By: #### C RP2, ESR, HEMDF, BMP3 ####[address] [place] [address] Anion gap [Moles/Vol] 6 mmol/L Normal 3-13 [facility] Comment on above: Performed By: #### C RP2, ESR, HEMDF, BMP3 ####[employer] [address] [place] [address] CO2 [Moles/Vol] 27 mmol/L Normal 22- [facility] Comment on above: Performed By: #### C RP2, ESR, HEMDF, BMP3 ####[facility] [email or web address] [id number] [place], [place] Glucose [Mass/Vol] 100 mg/dL Normal 70-100 [facility] Comment on above: Performed By: #### C RP2, ESR, HEMDF, BMP3 ####[facility] [place], [place] Urea nitrogen [Mass/Vol] 18 mg/dL High 7-17 [facility] Comment on above: Performed By: #### C RP2, ESR, HEMDF, BMP3 ####[address] [place], [place] Creatinine [Mass/Vol] 0.73 mg/dL Normal 0.52-1.25 [facility] Comment on above: Performed By: #### C RP2, ESR, HEMDF, BMP3 ####[address] [place], [place] eGFR OTHER > 90.0 Normal >60 [...] By: #### C RP2, ESR, HEMDF, BMP3 ####[facility] [email or web address] [id number] [place], [place] GFR/1.73 sq M.predicted among blacks MDRD (S/P/Bld) [Vol rate/Area] mL/min/{1.73_m2} Normal >60 [facility] Comment on above: Performed By: #### C RP2, ESR, HEMDF, BMP3 ####[facility] [place] [address] Potassium [Moles/Vol] 3.7 mmol/L Normal 3.5-5.1 [facility] Comment on above: Performed By: #### C RP2, ESR, HEMDF, BMP3 ####[address] [place] [address] Chloride [Moles/Vol] 106 mmol/L Normal 98-107 [facility] Comment on above: Performed By: #### C RP2, ESR, HEMDF, BMP3 ####[address] [place] [address] Sodium [Moles/Vol] 139 mmol/L Normal 135-145 [facility] Comment on above: Performed By: #### C RP2, ESR, HEMDF, BMP3 ####[address] [place] [address] Anion gap [Moles/Vol] 6 mmol/L 3 - 13 mmol/L [facility] Calcium [Mass/Vol] 8.8 mg/dL 8.4 - 10. 4 mg/dL [facility] Chloride [Moles/Vol] 106 mmol/L 98 - 10 7 mmol/L [facility] CO2 [Moles/Vol] 27 mmol/L 22 - 30 mmol/L [facility] Creatinine [Mass/Vol] 0.73 mg/dL 0.52 - 1.25 mg/dL [facility] eGFR mL/min 60 - P INF mL/min [facility] EGFR IF NonAfrican Pakistani mL/min 60 - PINF mL/min [facility] Comment on above: KDIGO guidelines [...] 2021 Basophil percentage 25-50 SEEN /hpf 0-5 [facility] Work Phone: Chloride [Moles/Vol] 106 mmol/L 98-107 [facility] Work Phone: [phone] Glucose [Mass/Vol] 93 mg/dL 74-106 [facility] Work Phone: Potassium [Moles/Vol] 3.5 mmol/L 3.5-5.1 [facility] Work Phone: Sodium [Moles/Vol] 140 mmol/L 136-145 [facility] Work Phone: WBC (Bld) [#/Vol] 9.6 10*3/uL 4.4-11.0 [facility] Work Phone: Bilirubin Test strip Ql (U)o n 12-22-2021 Bilirubin Ql (U) Negative Negative [facility] Work Phone: Blood erythrocytes count (nu mber/volume)on 12-22-2021 RBC (Bld) [#/Vol] 4.34 10*6/uL 4.6-6.2 [facility] Work Phone: Blood hemoglobin measurement (mass/volume)on 12-22-2021 Hemoglobin (Bld) [Mass/Vol] 11.5 g/dL 13.0-16.5 [facility] Work Phone: Blood platelet mean volumeon 12-22-2021 Platelet mean volume (Bld) [Entitic vol] 10.8 fL 6.2-12.0 [facility] Work Phone: C-Reactive Proteinon 022 CRP [Mass/Vol] 27.2 mg/L High 0.0-9.9 [facility] [employer] Comment on above: Result Comment: . Performed By: #### C RP2, ESR, HEMDF, BMP3 ####[employer] [address] [place] [address] CRP [Mass/Vol] 27.2 mg/L High 0 - 9.9 mg/L [facility] Comment on above: . CBC [...] 11.0 g/dL Low 13 - 18 g/dL [facility] Interpretation and review of laboratory results Abnormal [...] - 10.7 10*3/uL [facility] Test Performed by [place] [id number] [facility] COVID-19, Flu A/B, and RSV C [facility] 12-22-2021 Influenza A by PCR Not detected [facility] A Influenza B by PCR Not detected [facility] A RSV PCR Not Detected. Expected Result: Not Detected _ Method: Real-time, RT-PCR This assay was developed by [employer] and distributed under an Emergency Use Authorization (EUA) granted by the FDA for the qualitative detection of nucleic acids from SARS-CoV-2, Influenza A, Influenza B, and Respiratory Syncytial Virus. Provider and patient fact sheets can be found at https://www.fda.gov/media /577109/download and https://www.fda.gov/media /403688/download. [facility] SARS-CoV-2 (COVID-19) RNA MEGAN+probe Ql (Unsp spec) Not detected [facility] Test Performed by [place] [id number] [facility] CR Foot Complete 3+ Views [place] 12-22-2021 CR Foot Complete 3+ Views Left Patient Name: ANDREW SIFUENTES Diagnostic Radiology ACCESSION EXAM DATE/TIME PROCEDURE ORDERING PROVIDER [id number] 12/22/2021 00:09 EDT CR Foot Complete 3+ SANDY HIDALGO, HENRY Godoy Views Left CPT code 91325 Reason For Exam (CR Foot Complete 3+ [...] Ql (Urine sed) 1+ /hpf [facility] Work Phone: Determination of erythrocyte mean corpuscular volume (MCV)on 12-22-2021 MCV (RBC) [Entitic vol] 84.3 fL 80-94 [facility] Work Phone: ED Provider Noteon 2 [...] 79.4 kg (175 lb), SpO2 96 %. [id number] in no acute distress. 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 SURGICAL HISTORY Past Surgical [...] Response: Confused Best Motor Response: Obeys commands [place] Coma Scale Score: 14 Patient symptoms are [...] [Volume fraction] 36.6 % 40-54 [facility] Work Phone: Hemogram w/ Autodiffon 12-22 Abs Baso Cnt 0.1 10*3/uL Normal 0.0-0.2 [facility] Comment on above: Performed By: #### C RP2, ESR, HEMDF, BMP3 ####[id number] [place], [place] Abs Neutrophile Cnt 5.9 10*3/uL Normal 1.8-7.0 [facility] Comment on above: Performed By: #### C RP2, ESR, HEMDF, BMP3 ####[id number] [place], [place] Basophils/100 WBC (Bld) 0.7 % Normal 0.0-2.0 [facility] Comment on above: Performed By: #### C RP2, ESR, HEMDF, BMP3 ####[address] Eosinophils (Bld) [#/Vol] 0.2 10*3/uL Normal 0.0-0.5 [facility] Comment on above: Performed By: #### C RP2, ESR, HEMDF, BMP3 ####[facility] [email or web address] [place], [place] Eosinophils/100 WBC (Bld) 2.3 % Normal 1.0-6.0 [facility] Comment on above: Performed By: #### C RP2, ESR, HEMDF, BMP3 ####[facility] [email or web address] [id number] [place], [place] Erythrocyte distribution width (RBC) [Ratio] 17.5 % High 11.5-14.5 [facility] Comment on above: Performed By: #### C RP2, ESR, HEMDF, BMP3 ####[address] Granulocytes/100 WBC (Bld) 57.8 % Normal 40.0-80.0 [facility] Comment on above: Performed By: #### C RP2, ESR, HEMDF, BMP3 ####[address] [place], [place] Hematocrit (Bld) [Volume fraction] 33.3 % Low 40.0-52.0 [facility] Comment on above: Performed By: #### C RP2, ESR, HEMDF, BMP3 ####[address] Hemoglobin (Bld) [Mass/Vol] 11.0 g/dL Low 13.0-18.0 [facility] Comment on above: Performed By: #### C RP2, ESR, HEMDF, BMP3 ####[address] Lymphocytes (Bld) [#/Vol] 3.3 10*3/uL Normal 1.0-4.3 [facility] Comment on above: Performed By: #### C RP2, ESR, HEMDF, BMP3 ####[id number] [place], [place] Lymphocytes/100 WBC (Bld) 33.0 % Normal 20.0-40.0 [facility] Comment on above: Performed By: #### C RP2, ESR, HEMDF, BMP3 ####[address] MCH (RBC) [Entitic mass] 26.5 pg Normal 26.0-34.0 [facility] Comment on above: Performed By: #### C RP2, ESR, HEMDF, BMP3 ####[address] MCHC 33.1 % Normal 32.0-36.0 [facility] Comment on above: Performed By: #### C RP2, ESR, HEMDF, BMP3 ####[address] MCV (RBC) [Entitic vol] 80.2 fL Normal 80.0-98.0 [facility] Comment on above: Performed By: #### C RP2, ESR, HEMDF, BMP3 ####[id number] [place], [place] Monocytes (Bld) [#/Vol] 0.6 10*3/uL Normal 0.0-0.8 [facility] Comment on above: Performed By: #### C RP2, ESR, HEMDF, BMP3 ####[address] Monocytes/100 WBC (Bld) 6.2 % Normal 2.0-10.0 [facility] Comment on above: Performed By: #### C RP2, ESR, HEMDF, BMP3 ####[address] Platelet mean volume (Bld) [Entitic vol] 8.0 fL Normal 7.4-12.4 [facility] Comment on above: Result Comment: MPV is a calculated measurement using platelet volume ratio. Performed By: #### C RP2, ESR, HEMDF, BMP3 ####[address] [place], [place] Platelets (Bld) [#/Vol] 368 10*3/uL Normal 140-440 [facility] Comment on above: Performed By: #### C RP2, ESR, HEMDF, BMP3 ####[address] RBC (Bld) [#/Vol] 4.15 10*6/uL Low 4.40-5.90 [facility] Comment on above: Performed By: #### C RP2, ESR, HEMDF, BMP3 ####[address] WBC (Bld) [#/Vol] 10.1 10*3/uL Normal 3.6-10.7 [facility] Comment on above: Performed By: #### C RP2, ESR, HEMDF, BMP3 ####[id number] [employer] [place] [address] Ketones Test strip Ql (U)on 12-22-2021 Ketones Ql (U) Negative Negative [facility] Work Phone: Laboratory - Chemistry and C hemistry - challengeon 12-22-2021 CO2 [Moles/Vol] 27.0 mmol/L 21.0-32.0 [facility] Work Phone: Urea nitrogen/Creatinine [Mass ratio] 22.5 mg/mg 10-20 [facility] Work Phone: Laboratory - Hematology and Cell countson 12-22-2021 Erythrocyte distribution width (RBC) [Entitic vol] 49.1 fL 35.1-43.9 [facility] Work Phone: Erythrocyte distribution width (RBC) [Ratio] 16.1 % 11.6-14.6 [facility] Work Phone: MCH (RBC) [Entitic mass] 26.5 pg 27.0-32.0 [facility] Work Phone: MCHC Auto (RBC) [Mass/Vol]on 12-22-2021 MCHC (RBC) [Mass/Vol] 31.4 g/dL 32-36 [facility] Work Phone: Mucus LM Ql (Urine sed)on Mucus Ql (Urine sed) 0 SEEN /hpf [facility] Work Phone: Nitrite Test strip Ql (U)on 12-22-2021 Nitrite Ql (U) Positive Negative [facility] Work Phone: No Panel Informationon 12-22 Estimated GFR (MDRD) Amer 152 mL/min >60 [facility] Work Phone: Comment on above: GFR Calc Estimated GFR (MDRD) Non-Af Amer 125 mL/min >60 [facility] Work Phone: Comment on above: Non- GFR Calc Interpretation and review of laboratory results Abnormal [facility] Test Performed by [facility], [address] [place] [address] [facility] Platelets bldon 12-22-2021 Platelets (Bld) [#/Vol] 317 10*3/uL 150-450 [facility] Work Phone: Protein Test strip Ql (U)on 12-22-2021 Protein Ql (U) 30 mg/dl Negative [facility] Work Phone: SARS-CoV-2, Flu A/B and RSVo n 12-22-2021 SARS-CoV-2 (COVID-19) RNA MEGAN+probe Ql (Unsp spec) SARS-CoV-2 --> Status: F Not Detected. Flu A PCR --> Status: F Not Detected. Flu B PCR --> Status: F Not Detected. RSV PCR --> Status: F Not Detected. Expected Result: Not Detected _ Method: Real-time, RT-PCR This assay was developed by [employer] and distributed under an Emergency Use Authorization (EUA) granted by the FDA for the qualitative detection of nucleic acids from SARS-CoV-2, Influenza A, Influenza B, and Respiratory Syncytial Virus. Provider and patient fact sheets can be found at https://www.fda.gov/media /309762/download and https://www.fda.gov/media /791231/download. Expected Result: Not Detected _ Method: Real-time, RT-PCR This assay was developed by [employer] and distributed under an Emergency Use Authorization (EUA) granted by the FDA for the qualitative detection of nucleic acids from SARS-CoV-2, Influenza A, Influenza B, and Respiratory Syncytial Virus. Provider and patient fact sheets can be found at https://www.fda.gov/media /279511/download and https://www.fda.gov/media /789169/download. Normal [facility] Comment on above: Performed By: #### C VFLR ####[facility] [place] [place] [address], [id number] Sed Rateon 12-22-2021 Sed Rate 48 mm/h High 0-10 [facility] Comment on above: Performed By: #### C RP2, ESR, HEMDF, BMP3 ####[facility] [email or web address] [id number] [place] [address] Sedimentation Rateon 022 Interpretation and review of laboratory results Abnormal [facility] Sed Rate 48 mm/h High 0 - 10 mm/h [facility] Test Performed by [facility], [address] [place] [address] [facility] Serum or plasma calcium oral urement (mass/volume)on 12-22-2021 Calcium [Mass/Vol] 8.6 mg/dL 8.5-10.1 [facility] Work Phone: Serum or plasma creatinine m easurement (mass/volume)on 12-22-2021 Creatinine [Mass/Vol] 0.67 mg/dL 0.70-1.30 [facility] Work Phone: Comment on above: The validity of the calculated GFR & GFRAA in patients over 70 years has not been determined. Clinical correlation is essential. Serum or plasma urea nitroge n measurement (mass/volume)on 12-22-2021 Urea nitrogen [Mass/Vol] 15 mg/dL - [facility] Work Phone: Squamous epithelial cells de tection in urine sediment by light microscopyon 12-22-2021 Epithelial cells.squamous LM Ql (Urine sed) 0-5 SEEN /hpf 0-5 [facility] Work Phone: Thin prep Papanicolaou smear with manual screeningon 12-22-2021 Thin prep Papanicolaou smear with manual screening 7 5-15 [facility] Work Phone: Urine blood detectionon 12-05 RBC Ql (U) 150 /ul Negative [facility] Work Phone: RBC Ql (U) 10-25 SEEN /hpf 0-5 [facility] Work Phone: Urine clarityon 12-22-2021 Clarity (U) Sl. Cloudy Clear [facility] Work Phone: Urine color determinationon 12-22-2021 Color (U) Yellow Yellow [facility] Work Phone: Urine glucose detectionon Glucose Ql (U) Normal mg/dl Normal [facility] Work Phone: Urine leukocyte esterase det ection by dipstickon 12-22-2021 Leukocyte esterase Test strip Ql (U) 500 /ul Negative [facility] Work Phone: Urine pHon 12-22-2021 pH (U) 6.0 [pH] 5.0 - 8.0 [facility] Work Phone: Urine sediment bacteria coun t by microscopy (number/high power field)on 12-22-2021 Bacteria LM.HPF (Urine sed) [#/Area] 2 /[HPF] None Seen [facility] Work Phone: Urine specific gravity measu rementon 12-22-2021 Specific gravity (U) [Rel density] 1.020 1.002-1.030 [facility] Work Phone: Urobilinogen Auto test strip Ql (U)on 12-22-2021 Urobilinogen Ql (U) Normal mg/dl Normal [facility] Work Phone: XR FOOT LEFT (MIN 3 VIEWS)on 12-22-2021 Patient Name: ANDREW SIFUENTES Diagnostic Radiology ACCESSION EXAM DATE/TIME PROCEDURE ORDERING PROVIDER [id number] 12/22/2021 00:09 EDT CR Foot Complete 3+ SANDY HIDALGO JOHN M Views Left CPT code 35829 Reason For Exam (CR Foot Complete 3+ [...] JEFFREY Transcribed Date and Time: 12/22/2021 0:21 [facility] Albert Solano MD - 12/22/2021 Patient Name: ANDREW SIFUENTES Diagnostic Radiology ACCESSION EXAM DATE/TIME PROCEDURE ORDERING PROVIDER [id number] 12/22/2021 00:09 EDT CR Foot Complete 3+ SANDY HIDALGO JOHN M Views Left CPT code 22092 Reason For Exam (CR Foot Complete 3+ [...] 2021 Chloride [Moles/Vol] 103 mmol/L 98-107 [facility] Work Phone: Glucose [Mass/Vol] 92 mg/dL 74-106 [facility] Work Phone: Potassium [Moles/Vol] 3.5 mmol/L 3.5-5.1 [facility] Work Phone: Sodium [Moles/Vol] 138 mmol/L 136-145 [facility] Work Phone: WBC (Bld) [#/Vol] 11.2 10*3/uL 4.4-11.0 [facility] Work Phone: Blood erythrocytes count (nu mber/volume)on 12-19-2021 RBC (Bld) [#/Vol] 4.50 10*6/uL 4.6-6.2 [facility] Work Phone: Blood hemoglobin measurement (mass/volume)on 12-19-2021 Hemoglobin (Bld) [Mass/Vol] 12.2 g/dL 13.0-16.5 [facility] Work Phone: Blood platelet mean volumeon 12-19-2021 Platelet mean volume (Bld) [Entitic vol] 11.3 fL 6.2-12.0 [facility] Work Phone: Determination of erythrocyte mean corpuscular volume (MCV)on 12-19-2021 MCV (RBC) [Entitic vol] 85.6 fL 80-94 [facility] Work Phone: Hematocrit Auto (Bld) [Volum e fraction]on 12-19-2021 Hematocrit (Bld) [Volume fraction] 38.5 % 40-54 [facility] Work Phone: Laboratory - Chemistry and C hemistry - challengeon 12-19-2021 CO2 [Moles/Vol] 30.0 mmol/L 21.0-32.0 [facility] Work Phone: Urea nitrogen/Creatinine [Mass ratio] 27.1 mg/mg 10-20 [facility] Work Phone: Laboratory - Hematology and Cell countson 12-19-2021 Erythrocyte distribution width (RBC) [Entitic vol] 50.5 fL 35.1-43.9 [facility] Work Phone: Erythrocyte distribution width (RBC) [Ratio] 16.0 % 11.6-14.6 [facility] Work Phone: MCH (RBC) [Entitic mass] 27.1 pg 27.0-32.0 [facility] Work Phone: MCHC Auto (RBC) [Mass/Vol]on 12-19-2021 MCHC (RBC) [Mass/Vol] 31.7 g/dL 32-36 [facility] Work Phone: No Panel Informationon 12-19 Estimated GFR (MDRD) Amer 153 mL/min >60 [facility] Work Phone: Comment on above: GFR Calc Estimated GFR (MDRD) Non-Af Amer 126 mL/min >60 [facility] Work Phone: Comment on above: Non- GFR Calc Platelets bldon 12-19-2021 Platelets (Bld) [#/Vol] 363 10*3/uL 150-450 [facility] Work Phone: Serum or plasma calcium oral urement (mass/volume)on 12-19-2021 Calcium [Mass/Vol] 9.5 mg/dL 8.5-10.1 [facility] Work Phone: Serum or plasma creatinine m easurement (mass/volume)on 12-19-2021 Creatinine [Mass/Vol] 0.66 mg/dL 0.70-1.30 [facility] Work Phone: Comment on above: The validity of the calculated GFR & GFRAA in patients over 70 years has not been determined. Clinical correlation is essential. Serum or plasma urea nitroge n measurement (mass/volume)on 12-19-2021 Urea nitrogen [Mass/Vol] 18 mg/dL 7-18 [facility] Work Phone: Thin prep Papanicolaou smear with manual screeningon 12-19-2021 Thin prep Papanicolaou smear with manual screening 09-18 [facility] Work Phone: Laboratory - Coagulationon 0 12-12-2021 INR Coag (Bld) [Relative time] 2.0 {INR} [facility] Work Phone: Comment on above: Critical Value > 4.0 Whole blood prothrombin time on 12-12-2021 PT Coag (Bld) [Time] 23.9 s 11.7-14.9 [facility] Work Phone: ANES POSTPROC EVALon 022 ANES POSTPROC EVAL Normal [facility] Laboratory - Coagulationon 0 12-08-2021 INR Coag (Bld) [Relative time] 1.8 {INR} [facility] Work Phone: Comment on above: Critical Value > 4.0 Whole blood prothrombin time on 12-08-2021 PT Coag (Bld) [Time] 21.0 s 11.7-14.9 [facility] Work Phone: Absolute lymphocyte counton 12-05-2021 Lymphocytes Auto (Unsp spec) [#/Vol] 2.97 10*3/uL 0.83-4.51 [facility] Work Phone: Basophil percentageon 2021 Basophils/100 WBC (Bld) 0.6 % 0-1 [facility] Work Phone: Chloride [Moles/Vol] 106 mmol/L 98-107 [facility] Work Phone: Eosinophils/100 WBC (Bld) 2.3 % 0-5 [facility] Work Phone: Glucose [Mass/Vol] 107 mg/dL 74-106 [facility] Work Phone: Comment on above: Fasting Glucose resu lt from 100 to 125 mg/dL suggests IMPAIRED HOMEOSTASIS per A.D.A. criteria. Neutrophils (Bld) [#/Vol] 5.6 10*3/uL 2.0-7.7 [facility] Work Phone: Neutrophils/100 WBC (Bld) 60.2 % 47-70 [facility] Work Phone: [phone] Potassium [Moles/Vol] 3.4 mmol/L 3.5-5.1 [facility] Work Phone: [phone] Sodium [Moles/Vol] 139 mmol/L 136-145 [facility] Work Phone: WBC (Bld) [#/Vol] 9.3 10*3/uL 4.4-11.0 [facility] Work Phone: Blood erythrocytes count (nu mber/volume)on 12-05-2021 RBC (Bld) [#/Vol] 4.49 10*6/uL 4.6-6.2 [facility] Work Phone: Blood hemoglobin measurement (mass/volume)on 12-05-2021 Hemoglobin (Bld) [Mass/Vol] 12.1 g/dL 13.0-16.5 [facility] Work Phone: Blood lymphocytes/100 leukoc yteson 12-05-2021 Lymphocytes/100 WBC (Bld) 32.0 % 19-41 [facility] Work Phone: [phone] Blood monocytes/100 leukocyt eson 12-05-2021 Monocytes/100 WBC (Bld) 4.7 % 0-10 [facility] Work Phone: Blood platelet mean volumeon 12-05-2021 Platelet mean volume (Bld) [Entitic vol] 10.8 fL 6.2-12.0 [facility] Work Phone: Determination of erythrocyte mean corpuscular volume (MCV)on 12-05-2021 MCV (RBC) [Entitic vol] 84.9 fL 80-94 [facility] Work Phone: Hematocrit Auto (Bld) [Volum e fraction]on 12-05-2021 Hematocrit (Bld) [Volume fraction] 38.1 % 40-54 [facility] Work Phone: INR in Blood by Coagulation assayon 12-05-2021 INR Coag (Bld) [Relative time] 1.8 {INR} [facility] Work Phone: Laboratory - Chemistry and C hemistry - challengeon 12-05-2021 CO2 [Moles/Vol] 29.0 mmol/L 21.0-32.0 [facility] Work Phone: Urea nitrogen/Creatinine [Mass ratio] 25.4 mg/mg 10-20 [facility] Work Phone: Laboratory - Coagulationon 0 12-05-2021 PT Coag (PPP) [Time] 20.5 s 11.7-14.9 [facility] Work Phone: Laboratory - Hematology and Cell countson 12-05-2021 Erythrocyte distribution width (RBC) [Entitic vol] 48.5 fL 35.1-43.9 [facility] Work Phone: Erythrocyte distribution width (RBC) [Ratio] 15.7 % 11.6-14.6 [facility] Work Phone: Immature granulocytes/100 WBC (Bld) 0.200 % 0.0-0.9 [facility] Work Phone: Comment on above: IG% - Immature Granu locytes (promyelocytes, myelocytes and metamyelocytes) > 1% indicates that a LEFT SHIFT is Present. MCH (RBC) [Entitic mass] 26.9 pg 27.0-32.0 [facility] Work Phone: Nucleated RBC/100 WBC (Bld) [Ratio] 0 % 0-5 [facility] Work Phone: MCHC Auto (RBC) [Mass/Vol]on 12-05-2021 MCHC (RBC) [Mass/Vol] 31.8 g/dL 32-36 [facility] Work [facility]: No Panel Informationon 12-05 Estimated GFR (MDRD) Amer 133 mL/min >60 [facility] Work Phone: Comment on above: GFR Calc Estimated GFR (MDRD) Non-Af Amer 110 mL/min >60 [facility] Work Phone: Comment on above: Non- GFR Calc Platelets bldon 12-05-2021 Platelets (Bld) [#/Vol] 363 10*3/uL 150-450 [facility] Work Phone: Serum or plasma calcium oral urement (mass/volume)on 12-05-2021 Calcium [Mass/Vol] 9.4 mg/dL 8.5-10.1 [facility] Work Phone: Serum or plasma creatinine m easurement (mass/volume)on 12-05-2021 Creatinine [Mass/Vol] 0.75 mg/dL 0.70-1.30 [facility] Work Phone: Comment on above: The validity of the calculated GFR & GFRAA in patients over 70 years has not been determined. Clinical correlation is essential. Serum or plasma urea nitroge n measurement (mass/volume)on 12-05-2021 Urea nitrogen [Mass/Vol] 19 mg/dL 7-18 [facility] Work Phone: Thin prep Papanicolaou smear with manual screeningon 12-05-2021 Thin prep Papanicolaou smear with manual screening 4 5-15 [facility] Work Phone: Basophil percentageon 2021 Basophil percentage 0 SEEN /hpf 0-5 [facility] Work Phone: Chloride [Moles/Vol] 104 mmol/L 98-107 [facility] Work Phone: Glucose [Mass/Vol] 90 mg/dL 74-106 [facility] Work Phone: Potassium [Moles/Vol] 3.7 mmol/L 3.5-5.1 [facility] Work Phone: Comment on above: Slight Hemolysis, Re sult may be falsely increased. Sodium [Moles/Vol] 138 mmol/L 136-145 [facility]: WBC (Bld) [#/Vol] 10.7 10*3/uL 4.4-11.0 [facility] Work Phone: Bilirubin Test strip Ql (U)o n 12-01-2021 Bilirubin Ql (U) Negative Negative [facility] Work Phone: Blood erythrocytes count (nu mber/volume)on 12-01-2021 RBC (Bld) [#/Vol] 4.33 10*6/uL 4.6-6.2 [facility] Work Phone: Blood hemoglobin measurement (mass/volume)on 12-01-2021 Hemoglobin (Bld) [Mass/Vol] 11.6 g/dL 13.0-16.5 [facility] Work Phone: Blood platelet mean volumeon 12-01-2021 Platelet mean volume (Bld) [Entitic vol] 11.2 fL 6.2-12.0 [facility] Work Phone: Determination of erythrocyte mean corpuscular volume (MCV)on 12-01-2021 MCV (RBC) [Entitic vol] 85.2 fL 80-94 [facility] Work Phone: Hematocrit Auto (Bld) [Volum e fraction]on 12-01-2021 Hematocrit (Bld) [Volume fraction] 36.9 % 40-54 [facility] Work Phone: Ketones Test strip Ql (U)on 12-01-2021 Ketones Ql (U) Negative Negative [facility] Work Phone: Laboratory - Chemistry and C hemistry - challengeon 12-01-2021 CO2 [Moles/Vol] 27.0 mmol/L 21.0-32.0 [facility] Work Phone: Urea nitrogen/Creatinine [Mass ratio] 24.0 mg/mg 10-20 [facility] Work Phone: Laboratory - Coagulationon 0 12-01-2021 INR Coag (Bld) [Relative time] 1.6 {INR} [facility] Work Phone: Comment on above: Critical Value > 4.0 Laboratory - Hematology and Cell countson 12-01-2021 Erythrocyte distribution width (RBC) [Entitic vol] 47.9 fL 35.1-43.9 [facility] Work Phone: Erythrocyte distribution width (RBC) [Ratio] 15.5 % 11.6-14.6 [facility] Work Phone: MCH (RBC) [Entitic mass] 26.8 pg 27.0-32.0 [facility] Work Phone: MCHC Auto (RBC) [Mass/Vol]on 12-01-2021 MCHC (RBC) [Mass/Vol] 31.4 g/dL 32-36 [facility] Work Phone: Mucus LM Ql (Urine sed)on Mucus Ql (Urine sed) 0 SEEN /hpf [facility] Work Phone: Nitrite Test strip Ql (U)on 12-01-2021 Nitrite Ql (U) Negative Negative [facility] Work Phone: No Panel Informationon 12-01 Estimated GFR (MDRD) Amer 133 mL/min >60 [facility] Work Phone: Comment on above: GFR Calc Estimated GFR (MDRD) Non-Af Amer 110 mL/min >60 [facility] Work Phone: Comment on above: Non- GFR Calc Platelets bldon 12-01-2021 Platelets (Bld) [#/Vol] 336 10*3/uL 150-450 [facility] Work Phone: Protein Test strip Ql (U)on 12-01-2021 Protein Ql (U) 30 mg/dl Negative [facility] Work Phone: Serum or plasma calcium oral urement (mass/volume)on 12-01-2021 Calcium [Mass/Vol] 9.4 mg/dL 8.5-10.1 [facility] Work Phone: Serum or plasma creatinine m easurement (mass/volume)on 12-01-2021 Creatinine [Mass/Vol] 0.75 mg/dL 0.70-1.30 [facility] Work Phone: Comment on above: The validity of the calculated GFR & GFRAA in patients over 70 years has not been determined. Clinical correlation is essential. Serum or plasma urea nitroge n measurement (mass/volume)on 12-01-2021 Urea nitrogen [Mass/Vol] 18 mg/dL 7-18 [facility] Work Phone: Squamous epithelial cells de tection in urine sediment by light microscopyon 12-01-2021 Epithelial cells.squamous LM Ql (Urine sed) 0-5 SEEN /hpf 0-5 [facility] Work Phone: Thin prep Papanicolaou smear with manual screeningon 12-01-2021 Thin prep Papanicolaou smear with manual screening 7 5-15 [facility] Work Phone: Urine blood detectionon 11-05 RBC Ql (U) Negative Negative [facility] Work Phone: RBC Ql (U) 0 SEEN /hpf 0-5 [facility] Work Phone: Urine clarityon 12-01-2021 Clarity (U) Clear Clear [facility] Work Phone: Urine color determinationon 12-01-2021 Color (U) Yellow Yellow [facility] Work Phone: Urine glucose detectionon Glucose Ql (U) 50 mg/dl Normal [facility] Work Phone: Urine leukocyte esterase det ection by dipstickon 12-01-2021 Leukocyte esterase Test strip Ql (U) Negative Negative [facility] Work Phone: Urine pHon 12-01-2021 pH (U) 6.0 [pH] 5.0 - 8.0 [facility] Work Phone: Urine sediment bacteria coun t by microscopy (number/high power field)on 12-01-2021 Bacteria LM.HPF (Urine sed) [#/Area] 0 /[HPF] None Seen [facility] Work Phone: Urine sediment yeast count b y microscopy (number/high powered field)on 12-01-2021 Yeast LM.HPF (Urine sed) [#/Area] 2 /[HPF] None Seen [facility] Work Phone: Urine specific gravity measu rementon 12-01-2021 Specific gravity (U) [Rel density] 1.010 1.002-1.030 [facility] Work Phone: Urobilinogen Auto test strip Ql (U)on 12-01-2021 Urobilinogen Ql (U) Normal mg/dl Normal [facility] Work Phone: Whole blood prothrombin time on 12-01-2021 PT Coag (Bld) [Time] 19.8 s 11.7-14.9 [facility] Work Phone: Laboratory - Coagulationon 0 11-28-2021 INR Coag (Bld) [Relative time] 1.6 {INR} [facility] Work Phone: Comment on above: Critical Value > 4.0 Whole blood prothrombin time on 11-28-2021 PT Coag (Bld) [Time] 18.8 s 11.7-14.9 [facility] Work Phone: INR in Blood by Coagulation assayon 11-23-2021 INR Coag (Bld) [Relative time] 2.7 {INR} [facility] Work Phone: Laboratory - Coagulationon 0 11-23-2021 PT Coag (PPP) [Time] 28.0 s 11.7-14.9 [facility] Work Phone: Laboratory - Coagulationon 0 11-22-2021 INR Coag (Bld) [Relative time] 3.8 {INR} [facility] Work Phone: Comment on above: Critical Value > 4.0 Whole blood prothrombin time on 11-22-2021 PT Coag (Bld) [Time] 42.8 s 11.7-14.9 [facility] Work Phone: INR in Blood by Coagulation assayon 11-21-2021 INR Coag (Bld) [Relative time] 3.9 {INR} [facility] Work Phone: Laboratory - Coagulationon 0 11-21-2021 PT Coag (PPP) [Time] 37.7 s 11.7-14.9 [facility] Work Phone: Whole blood prothrombin time on 11-21-2021 PT Coag (Bld) [Time] 45.5 s 11.7-14.9 [facility] Work Phone: INR in Blood by Coagulation assayon 11-14-2021 INR Coag (Bld) [Relative time] 3.1 {INR} [facility] Work Phone: Laboratory - Coagulationon 0 11-14-2021 PT Coag (PPP) [Time] 31.4 s 11.7-14.9 [facility] Work Phone: Laboratory - Coagulationon 0 11-08-2021 INR Coag (Bld) [Relative time] 2.5 {INR} [facility] Work Phone: Comment on above: Critical Value > 4.0 Whole blood prothrombin time on 11-08-2021 PT Coag (Bld) [Time] 29.0 s 11.7-14.9 [facility] Work Phone: Basophil percentageon 2021 Chloride [Moles/Vol] 106 mmol/L 98-107 [facility] Work Phone: Glucose [Mass/Vol] 100 mg/dL 74-106 [facility] Work Phone: Comment on above: Fasting Glucose resu lt from 100 to 125 mg/dL suggests IMPAIRED HOMEOSTASIS per A.D.A. criteria. Potassium [Moles/Vol] 3.7 mmol/L 3.5-5.1 [facility] Work Phone: Sodium [Moles/Vol] 140 mmol/L 136-145 [facility] Work Phone: WBC (Bld) [#/Vol] 8.8 10*3/uL 4.4-11.0 [facility] Work Phone: Blood erythrocytes count (nu mber/volume)on 11-04-2021 RBC (Bld) [#/Vol] 4.05 10*6/uL 4.6-6.2 [facility] Work Phone: Blood hemoglobin measurement (mass/volume)on 11-04-2021 Hemoglobin (Bld) [Mass/Vol] 11.1 g/dL 13.0-16.5 [facility] Work Phone: Blood platelet mean volumeon 11-04-2021 Platelet mean volume (Bld) [Entitic vol] 10.8 fL 6.2-12.0 [facility] Work Phone: Determination of erythrocyte mean corpuscular volume (MCV)on 11-04-2021 MCV (RBC) [Entitic vol] 86.9 fL 80-94 [facility] Work Phone: Hematocrit Auto (Bld) [Volum e fraction]on 11-04-2021 Hematocrit (Bld) [Volume fraction] 35.2 % 40-54 [facility] Work Phone: INR in Blood by Coagulation assayon 11-04-2021 INR Coag (Bld) [Relative time] 1.8 {INR} [facility] Work Phone: Laboratory - Chemistry and C hemistry - challengeon 11-04-2021 CO2 [Moles/Vol] 26.0 mmol/L 21.0-32.0 [facility] Work Phone: Urea nitrogen/Creatinine [Mass ratio] 18.3 mg/mg 10-20 [facility] Work Phone: Laboratory - Coagulationon 0 11-04-2021 PT Coag (PPP) [Time] 20.4 s 11.7-14.9 [facility] Work Phone: Laboratory - Hematology and Cell countson 11-04-2021 Erythrocyte distribution width (RBC) [Entitic vol] 48.1 fL 35.1-43.9 [facility] Work Phone: Erythrocyte distribution width (RBC) [Ratio] 15.0 % 11.6-14.6 [facility] Work Phone: MCH (RBC) [Entitic mass] 27.4 pg 27.0-32.0 [facility] Work Phone: MCHC Auto (RBC) [Mass/Vol]on 11-04-2021 MCHC (RBC) [Mass/Vol] 31.5 g/dL 32-36 [facility] Work Phone: No Panel Informationon 11-04 D-Dimer Quantitative (PE/DVT) 0.56 FEU/ug/m 0.27-0.49 [facility] Work Phone: Comment on above: D-Dimer ELEVATED (>0 .49): Additional studies and clinicalassessments are indicated to conclude diagnosis of:Deep Vein Thrombosis (DVT) or Pulmonary Embolism (PE) Estimated GFR (MDRD) Amer 155 mL/min >60 [facility] Work Phone: Comment on above: GFR Calc Estimated GFR (MDRD) Non-Af Amer 128 mL/min >60 [facility] Work Phone: Comment on above: Non- GFR Calc Troponin I High Sensitivity 11 pg/mL 3.0-78.0 [facility] Work Phone: Comment on above: Please Note: New Fadumo t Units and Gender Specific Reference Ranges. For more information see Policy Stat Procedure Spangle High Sensitivity Troponin (TNIH) and attachments. Platelets bldon 11-04-2021 Platelets (Bld) [#/Vol] 364 10*3/uL 150-450 [facility] Work Phone: Serum or plasma C reactive p rotein measurement (mass/volume)on 11-04-2021 CRP [Mass/Vol] 31.90 mg/L 0.0-3.0 [facility] Work Phone: Comment on above: C-Reactive Protein ( CRP) provides useful information for thediagnosis, therapy and monitoring of inflammatory processesand associated diseases. For the evaluation of Relative Riskfor Cardiovascular Disease, a High Sensitivity CRP (HSCRP)should be ordered. Serum or plasma calcium oral urement (mass/volume)on 11-04-2021 Calcium [Mass/Vol] 9.1 mg/dL 8.5-10.1 [facility] Work Phone: Serum or plasma creatinine m easurement (mass/volume)on 11-04-2021 Creatinine [Mass/Vol] 0.66 mg/dL 0.70-1.30 [facility] Work Phone: Comment on above: The validity of the calculated GFR & GFRAA in patients over 70 years has not been determined. Clinical correlation is essential. Serum or plasma urea nitroge n measurement (mass/volume)on 11-04-2021 Urea nitrogen [Mass/Vol] 12 mg/dL 7-18 [facility] Work Phone: Thin prep Papanicolaou smear with manual screeningon 11-04-2021 Thin prep Papanicolaou smear with manual screening 8 5-15 [facility] Work Phone: Complete Urinalysison 2021 Appearance (U) Clear Normal Clear [facility] [email or web address] [facility] Comment on above: Result Comment: . Performed By: #### C UA2 ####[id number] [place], [place] Bacteria Moderate Abnormal Negative [facility] Comment on above: Result Comment: . Performed By: #### C UA2 ####[id number] [place], [place] Bilirubin,Urine Negative Normal Negative [facility] [email or web address] [facility] Comment on above: Result Comment: . Performed By: #### C UA2 ####[email or web address] [id number] [place], [place] Cast, Hyaline Negative Normal Negative [facility] [email or web address] System Comment on above: Result Comment: . Performed By: #### C UA2 ####[id number] [place], [place] Color (U) Yellow Normal Lt. Yellow [facility] Comment on above: Result Comment: . Performed By: #### C UA2 ####[address] [place], [place] Glucose Ql (U) Normal Normal Normal (<70) [facility] Comment on above: Result Comment: . Performed By: #### C UA2 ####[address] [place], [place] Ketone,Urine Negative Normal Negative [facility] Comment on above: Result Comment: . Performed By: #### C UA2 ####[address] [place], [place] Leukocytes,Urine Negative Normal Negative [facility] Comment on above: Result Comment: . Performed By: #### C UA2 ####[address] Mucous Threads Few Normal Negative [facility] Comment on above: Result Comment: . Performed By: #### C UA2 ####[address] Nitrites,Urine Negative Normal Negative [facility] Comment on above: Result Comment: . Performed By: #### C UA2 ####[address] Occult Blood,Urine 0.1 mg/dL Abnormal Negative [facility] Comment on above: Result Comment: . Performed By: #### C UA2 ####[address] pH,Urine 5.5 Normal 5.0-8.0 [facility] Comment on above: Result Comment: . Performed By: #### C UA2 ####[address] Protein (U) [Mass/Vol] 10 mg/dL Abnormal Negative [facility] Comment on above: Result Comment: . Performed By: #### C UA2 ####[address] RBC, Urine 26 - 50 Abnormal 0-2 [facility] Comment on above: Result Comment: . Performed By: #### C UA2 ####[facility] [email or web address] [id number] [place], [place] Specific Lowry,Urine 1.023 Normal 1.005 - 1.030 [facility] Comment on above: Result Comment: . Performed By: #### C UA2 ####[id number] [place], [place] Squamous Epithelial Negative Normal 3-5 [facility] Comment on above: Result Comment: . Performed By: #### C UA2 ####[address] [place], [place] Urobilinogen,Urine Normal Normal Normal (0-1) [facility] Comment on above: Result Comment: . Performed By: #### C UA2 ####[address] [place], [place] WBC, Urine 0 - 2 Normal 0-5 [facility] Comment on above: Result Comment: . Performed By: #### C UA2 ####[address] [place], [place] Urinalysison 11-01-2021 Appearance (U) Clear Clear [...] Protein (U) [Mass/Vol] 10 mg/dL Abnormal Negative [facility] Comment on above: . RBC, UA 26-50 Abnormal 0 - 2 /[HPF] [facility] Comment on above: . Specific Lowry, Urine 1.023 [facility] Comment on above: . Squam Epithel, UA Negative 3 - 5 /[HPF] [facility] Comment on above: . Urobilinogen, Urine Normal Normal ( 0-1) mg/dL [facility] Comment on above: . WBC, UA 0-2 0 - 5 /[HPF] [facility] Comment on above: . Test Performed by [facility], [address] [place] [phone] [place] [address] - [facility] Basic Metabolic Panelon -2 Anion gap [Moles/Vol] 6 mmol/L Normal 3-13 [facility] Comment on above: Performed By: #### P T/AP, TROPN, BMP3, HEMDF #### [address] Calcium [Mass/Vol] 9.1 mg/dL Normal 8.4-10.4 [facility] Comment on above: Performed By: #### P T/AP, TROPN, BMP3, HEMDF #### [address] CO2 [Moles/Vol] 28 mmol/L Normal 22-30 [facility] Comment on above: Performed By: #### P T/AP, TROPN, BMP3, HEMDF #### [address] Glucose [Mass/Vol] 120 mg/dL High 70-100 [facility] Comment on above: Performed By: #### P T/AP, TROPN, BMP3, HEMDF #### [address] Urea nitrogen [Mass/Vol] 17 mg/dL Normal 7-17 [facility] Comment on above: Performed By: #### P T/AP, TROPN, BMP3, HEMDF #### [address] Creatinine [Mass/Vol] 0.65 mg/dL Normal 0.52-1.25 [facility] Comment on above: Performed By: #### P T/AP, TROPN, BMP3, HEMDF #### [address] eGFR OTHER > 90.0 Normal >60 [...] #### P T/AP, TROPN, BMP3, HEMDF #### [address] GFR/1.73 sq M.predicted among blacks MDRD (S/P/Bld) [Vol rate/Area] mL/min/{1.73_m2} Normal >60 [facility] Comment on above: Performed By: #### P T/AP, TROPN, BMP3, HEMDF #### [address] Potassium [Moles/Vol] 3.8 mmol/L Normal 3.5-5.1 [facility] Comment on above: Performed By: #### P T/AP, TROPN, BMP3, HEMDF #### [address] Chloride [Moles/Vol] 101 mmol/L Normal 98-107 [facility] Comment on above: Performed By: #### P T/AP, TROPN, BMP3, HEMDF #### [facility] [address] [place] [address] Sodium [Moles/Vol] 134 mmol/L Low 135-145 [facility] Comment on above: Performed By: #### P T/AP, TROPN, BMP3, HEMDF #### [facility] [address] [place] [address] Anion gap [Moles/Vol] 6 mmol/L 3 - 13 mmol/L [facility] Calcium [Mass/Vol] 9.1 mg/dL 8.4 - 10. 4 mg/dL [facility] Chloride [Moles/Vol] 101 mmol/L 98 - 10 7 mmol/L [facility] CO2 [Moles/Vol] 28 mmol/L 22 - 30 mmol/L [facility] Creatinine [Mass/Vol] 0.65 mg/dL 0.52 - 1.25 mg/dL [facility] EGFR IF NonAfrican Pakistani >90.0 >60 mL/min [facility] Comment on above: KDIGO guidelines pro vide [...] mg/dL [facility] Test Performed by [facility], [address] [place] [id number] [place] [address] LAB [facility] CBC with Auto Differentialon 10-31-2021 [...] 11.3 g/dL Low 13.0 - 18.0 g/dL [facility] Interpretation and review of laboratory results Abnormal [...] 10*3/uL [facility] Test Performed by [facility], [address] [place] [phone] [place] [address] LAB [facility] CR Abdomen APon 10-31-2021 CR Abdomen AP Patient Name: ANDREW SIFUENTES Diagnostic Radiology ACCESSION EXAM DATE/TIME PROCEDURE ORDERING PROVIDER [id number] 10/31/2021 20:36 EDT CR Abdomen AP [id number] -MYRON DURAN CPT code 59094 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, 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 CHEST PORTABLE [...] [facility] CR Chest Portableon 11-01-19 CR Chest Portable Patient Name: ANDREW SIFUENTES Diagnostic Radiology ACCESSION EXAM DATE/TIME PROCEDURE ORDERING PROVIDER [id number] 10/31/2021 20:36 EDT CR Chest Portable [id number] -DURAN, MYRON CPT code 36973 Reason For Exam (CR Chest Portable) AMS [...] Tomography ACCESSION EXAM DATE/TIME PROCEDURE ORDERING PROVIDER [id number] 10/31/2021 20:[address] Head or Brain w/o [id number] -DURAN, MYRON Contrast CPT code 38117 Reason For Exam (CT Head or Brain w/o Contrast) 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, 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 Report Examination: CT Head Clinical Information: AMS, 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 Comparison: 10/26/2021, MRI 10/27/2021 Findings: Serial [...] J Transcribed Date and Time: 10/31/2021 8:54 [facility] Alan Wong MD - 10/31/2021 Patient Name: [id number] Computed Tomography ACCESSION EXAM DATE/TIME PROCEDURE ORDERING PROVIDER [id number] 10/31/2021 20:[address] Head or Brain w/o [id number] -MYRON DURAN Contrast CPT code 70253 Reason For Exam (CT Head or Brain w/o Contrast) AMS, 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 Report Examination: CT Head Clinical Information: 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, 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 Comparison: 10/26/2021, MRI 10/27/2021 Findings: Serial [...] Tomography ACCESSION EXAM DATE/TIME PROCEDURE ORDERING PROVIDER [id number] 10/31/2021 20:[address] Head or Brain w/o [id number] -DURAN, MYRON Contrast CPT code 76712 Reason For Exam (CT Head or Brain w/o Contrast) 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, 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 Report Examination: CT Head Clinical Information: AMS, 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 Altered Mental Status Pt presents to ED via [facility] for complaint listed. Pt is from [place] [facility]. Pt's LKW was 1000 hours today. [...] have a history of hydrocephalus with a CONTRACT NEGOTIATION SPECIALIST shunt. 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 REVIEW OF [...] (HCC) ? Kidney stone ? Neuropathy ? 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1950 Requested By: MYRON DURAN Order Number: [id number] Reading MD: Dante Kim Measurements Intervals [place] Rate: 91 P: 41 RI: 154 QRS: 50 QRSD: 147 T: 8 QT: 385 QTc: 474 Interpretive Statements Sinus rhythm Right bundle branch block Electronically Signed On 10-31-2021 20:36:25 EDT by Dante Kim [facility] CARDIOLOG[facility] Dante Kim M D - 10/31/2021 [facility] Test Date: 2021-10-31 Pat Name: ANDREW SIFUENTES Department: [facility] Room: 40 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: M 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1950 Requested By: MYRON DURAN Order Number: [id number] Reading MD: Dante Kim Measurements Intervals [place] Rate: 91 P: 41 RI: 154 QRS: 50 QRSD: 147 T: 8 QT: 385 QTc: 474 Interpretive Statements Sinus rhythm Right bundle branch block Electronically Signed On 10-31-2021 20:36:25 EDT by Dante Kim [facility] Work Phone: EKG 12 Lead - Chest PainOrde red By: Dante Kim on 10-31-2021 [employer] Work Phone: Hemogram w/ Autodiffon 10-31 Abs Baso Cnt 0.1 10*3/uL Normal 0.0-0.2 [facility] Comment on above: Performed By: #### P T/AP, TROPN, BMP3, HEMDF #### [address] [place], [place] Abs Neutrophile Cnt 6.0 10*3/uL Normal 1.8-7.0 [facility] Comment on above: Performed By: #### P T/AP, TROPN, BMP3, HEMDF #### [address] [place], [place] Basophils/100 WBC (Bld) 1.1 % Normal 0.0-2.0 [facility] Comment on above: Performed By: #### P T/AP, TROPN, BMP3, HEMDF #### [address] [place], [place] Eosinophils (Bld) [#/Vol] 0.2 10*3/uL Normal 0.0-0.5 [facility] Comment on above: Performed By: #### P T/AP, TROPN, BMP3, HEMDF #### [address] [place] [address] Eosinophils/100 WBC (Bld) 2.3 % Normal 1.0-6.0 [facility] Comment on above: Performed By: #### P T/AP, TROPN, BMP3, HEMDF #### [address] Erythrocyte distribution width (RBC) [Ratio] 17.2 % High 11.5-14.5 [facility] Comment on above: Performed By: #### P T/AP, TROPN, BMP3, HEMDF #### [address] [place], [place] Granulocytes/100 WBC (Bld) 61.8 % Normal 40.0-80.0 [facility] Comment on above: Performed By: #### P T/AP, TROPN, BMP3, HEMDF #### [address] Hematocrit (Bld) [Volume fraction] 35.0 % Low 40.0-52.0 [facility] Comment on above: Performed By: #### P T/AP, TROPN, BMP3, HEMDF #### [address] [place], [place] Hemoglobin (Bld) [Mass/Vol] 11.3 g/dL Low 13.0-18.0 [facility] Comment on above: Performed By: #### P T/AP, TROPN, BMP3, HEMDF #### [address] Lymphocytes (Bld) [#/Vol] 2.8 10*3/uL Normal 1.0-4.3 [facility] Comment on above: Performed By: #### P T/AP, TROPN, BMP3, HEMDF #### [address] Lymphocytes/100 WBC (Bld) 29.2 % Normal 20.0-40.0 [facility] Comment on above: Performed By: #### P T/AP, TROPN, BMP3, HEMDF #### [address] MCH (RBC) [Entitic mass] 27.5 pg Normal 26.0-34.0 [facility] Comment on above: Performed By: #### P T/AP, TROPN, BMP3, HEMDF #### [address] MCHC 32.3 % Normal 32.0-36.0 [facility] Comment on above: Performed By: #### P T/AP, TROPN, BMP3, HEMDF #### [address] MCV (RBC) [Entitic vol] 85.0 fL Normal 80.0-98.0 [facility] Comment on above: Performed By: #### P T/AP, TROPN, BMP3, HEMDF #### [address] [place], [place] Monocytes (Bld) [#/Vol] 0.5 10*3/uL Normal 0.0-0.8 [facility] Comment on above: Performed By: #### P T/AP, TROPN, BMP3, HEMDF #### [address] [place], [place] Monocytes/100 WBC (Bld) 5.6 % Normal 2.0-10.0 [facility] Comment on above: Performed By: #### P T/AP, TROPN, BMP3, HEMDF #### [address] [place], [place] Platelet mean volume (Bld) [Entitic vol] 8.6 fL Normal 7.4-12.4 [facility] Comment on above: Result Comment: MPV is a calculated measurement using platelet volume ratio. Performed By: #### P T/AP, TROPN, BMP3, HEMDF #### [address] [place], [place] Platelets (Bld) [#/Vol] 348 10*3/uL Normal 140-440 [facility] Comment on above: Performed By: #### P T/AP, TROPN, BMP3, HEMDF #### [address] [place], [place] RBC (Bld) [#/Vol] 4.12 10*6/uL Low 4.40-5.90 [facility] Comment on above: Performed By: #### P T/AP, TROPN, BMP3, HEMDF #### [address] [place], [place] WBC (Bld) [#/Vol] 9.7 10*3/uL Normal 3.6-10.7 [facility] Comment on above: Performed By: #### P T/AP, TROPN, BMP3, HEMDF #### [address] [place] [address] Laboratory - Coagulationon 0 10-31-2021 INR Coag (Bld) [Relative time] 2.0 {INR} [facility] Work Phone: Comment on above: Critical Value > 4.0 No Panel Informationon 10-31 Radiology Study observation (narrative) [facility] Work Phone: PROTIME/INR & PTTon 11-01-19 aPTT Coag (Bld) [Time] 39.2 s High 20.0 - 30.5 s [facility] Comment on above: NOTE: The therapeuti c time for Heparin anticoagulation, based on Xa activity inhibition, is an APTT of 46-80 seconds. INR Coag (Bld) [Relative time] 1.9 {INR} High [facility] Comment on above: Recommended Anticoag [...] Interpretation and review of laboratory results Abnormal [facility] PT Coag (PPP) [Time] 19.8 s High 9.0 - 12.0 s [facility] Comment on above: . Test Performed by [facility], [address] [place] [phone] [place] [address] LAB [facility] Protime AND APTTon aPTT Coag (Bld) [Time] 39.2 s High 20.0-30.5 [facility] Comment on above: Result Comment: NOTE : The therapeutic time for Heparin anticoagulation, based on Xa activity inhibition, is an APTT of 46-80 seconds. Performed By: #### P T/AP, TROPN, BMP3, HEMDF #### [address] [place] [address] INR 1.9 High 0.9-1.1 [facility] [...] #### P T/AP, TROPN, BMP3, HEMDF #### [address] [phone] PT Coag (PPP) [Time] 19.8 s High 9.0-12.0 [facility] Comment on above: Result Comment: . Performed By: #### P T/AP, TROPN, BMP3, HEMDF #### [address] [address] Troponin Ion 10-31-2021 Troponin I.cardiac [Mass/Vol] ng/mL Normal 0.000-0.034 [facility] Comment on above: Result Comment: . Performed By: #### P T/AP, TROPN, BMP3, HEMDF #### [address] [address] Troponin x1on 10-31-2021 Troponin I.cardiac [Mass/Vol] ng/mL 0.000 - 0.034 ng/mL [facility] Comment on above: . Test Performed by [facility], [address] [place] [id number] [place] [address] LAB [facility] Whole blood prothrombin time on 10-31-2021 PT Coag (Bld) [Time] 23.7 s 11.7-14.9 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 CHEST PORTABLE [...] WENDELL Transcribed Date and Time: 10/31/2021 8:49 [facility] Huang Reynoso MD - 10/31/2021 Patient Name: [id number] Diagnostic Radiology ACCESSION EXAM DATE/TIME PROCEDURE ORDERING PROVIDER [id number] 10/31/2021 20:36 EDT CR Abdomen AP [id number] MYRON GALINDO CPT code 86956 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, 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 CHEST PORTABLE [...] Radiology ACCESSION EXAM DATE/TIME PROCEDURE ORDERING PROVIDER [id number] 10/31/2021 20:36 EDT CR Chest Portable [id number] MYRON GALINDO CPT code 13261 Reason For Exam (CR Chest Portable) AMS [...] MD - 10/31/2021 Patient Name: AND[facility]W [facility]IF[facility]ENTES [id number] Diagnostic Radiology ACCESSION EXAM DATE/TIME PROCEDURE ORDERING PROVIDER [id number] 10/31/2021 20:36 EDT CR Chest Portable [id number] MYRON GALINDO CPT code 38832 Reason For Exam (CR Chest Portable) AMS [...] WENDELL Transcribed Date and Time: 10/31/2021 8:49 [facility] Work Phone: XR CHEST PORTABLEOrdered By: Huang Reynoso on 10-31-2021 [facility] Work Phone: Lupus Anticoagulanton 2021 DRVVT Confirmation Test Not Applicable Negative ratio [facility] Work Phone: dRVVT Screen 38 [facility] Work Phone: [phone] Hex Phosph Neut Test Not Applicable Negative NA [facility] Work Phone: [phone] Interpretation and review [...] has not already been performed. Performed by [facility], [address] [place] [id number] [email or web address], Quiana Castro MD - Lab. Director Platelet Neutralization Not Applicable Negative NA [facility] Work Phone: [phone] PTT-D Heparin Neutralized 48 [facility] Work Phone: [phone] PTT-LA 55 High [facility] Work Phone: [phone] Reptilase Tm 17.6 <=21.9 sec [facility] Work Phone: [phone] Thrombin Time 25.3 High [facility] Work Phone: [phone] [facility] Work Phone: [phone] Lupus Anticoagulant Reflexiv e Panelon 10-29-2021 aPTT Coag (Bld) [Time] 55 s High 32-48 [facility] Comment on above: Performed By: #### C OVAG #### [facility] [email or web address] [facility] [address] [place] [address] aPTT Coag (Bld) [Time] 48 s Normal 32-48 [facility] Comment on above: Performed By: #### C OVAG #### [facility] [email or web address] [facility] [address] [place] [address] DRVVT 1:1 Mix Not Applicable Normal 33-44 [facility] Work Phone: Comment on above: Performed By: #### C OVAG #### [facility] [address] [place] [address] dRVVT Confirmation Not Applicable Normal Negative [facility] Comment on above: Performed By: #### C OVAG #### [facility] [address] [place] [address] dRVVT Screen 38 sec Normal 33-44 [facility] Comment on above: Performed By: #### C OVAG #### [facility] [address] [place] [address] Hexagonal Phospholipid Neutral Reflex Not Applicable Normal Negative [facility] Comment on above: Performed By: #### C OVAG #### [facility] [address] [place] [address] Lupus Anticoagulant Interpretation See Note Normal Up [...] has not already been performed. Performed by [facility], [address] [place] [id number] [email or web address], Quiana Castro MD - Lab. Director Performed By: #### C OVAG #### [facility] [address] [place] [address] Platelet Neutralization (PTT-D, Confirm) Not Applicable Normal Negative [facility] Comment on above: Performed By: #### C OVAG #### [facility] [address] [place] [address] PT Coag (PPP) [Time] 14.7 s Normal 12.0-15.5 [facility] Work Phone: Comment on above: Performed By: #### C OVAG #### [facility] [address] [place] [address] PTT-D 1:1 Mix Not Applicable Normal 32-48 [facility] Work Phone: Comment on above: Performed By: #### C OVAG #### [facility] [address] [place] [address] Reptilase Time 17.6 sec Normal <=21.9 [facility] Comment on above: Performed By: #### C OVAG #### [facility] [address] [place] [address] Thrombin Time 25.3 sec High 14.7-19.5 [facility] Comment on above: Performed By: #### C OVAG #### [facility] [address] [place] [address] POCT COVID-19, Antigenon SARS-CoV-2 Nucleocapsid Antigen Negative Negative [facility] Comment on above: A negative result does not rule out the possibility of SARS-CoV-2 infection. NAAT-based methods should be considered for symptomatic patients presenting greater than seven days after onset of symptoms. Method: Lateral flow immunoassay. Fact sheets for healthcare providers and patients can be found at the following sites: https://www.fda.gov/media/013285/download https://www.fda.gov/media/761232/download Test Performed by [facility], [address] LAB [facility] Prothrombin Timeon 2 INR 2.7 High 0.9-1.1 [facility] [...] #### [facility] [address] [place] [address] PT Coag (PPP) [Time] 27.4 s High 9.0-12.0 [facility] Comment on above: Result Comment: . Performed By: #### P T #### [facility] [address] [place] [address] Protime-INRon 10-29-2021 INR Coag (Bld) [Relative time] 2.7 {INR} High [facility] Work Phone: Comment on above: [...] Interpretation and review of laboratory results Abnormal [facility] Work Phone: PT Coag (PPP) [Time] 27.4 s High 9.0 - 12.0 s [facility] Work Phone: Comment on above: . Test Performed by [facility], [address] [place], [place], [place] [address] [facility] LAB [facility] Work Phone: SARS-CoV-2 Antigenon 022 SARS-CoV-2 [...] can be found at the following sites: https://www.fda.gov/media/188128/download https://www.fda.gov/media/659154/download Performed By: #### C OVAG #### [facility] [address] [place] [address] CBCon 10-28-2021 Hematocrit (Bld) [Volume fraction] 33.4 % Low 40.0 - 52.0 % [facility] Work Phone: 1 Hemoglobin (Bld) [Mass/Vol] 11.0 g/dL Low 13.0 - 18.0 g/dL [facility] Work Phone: Interpretation and review of laboratory results Abnormal [facility] Work Phone: MCH (RBC) [Entitic mass] 27.8 pg 26.0 - 34.0 pg [facility] Work Phone: MCHC (RBC) [Mass/Vol] 32.8 % 32.0 - 36.0 % [facility] Work Phone: MCV (RBC) [Entitic vol] 84.8 fL 80.0 - 98.0 fL [facility] Work Phone: Platelet distribution width (Bld) [Ratio] 17.1 % High 11.5 - 14.5 % [facility] Phone: Platelet mean volume (Bld) [Entitic vol] 8.3 fL 7.4 - 12.4 fL [facility] Work Phone: Comment on above: MPV is a calculated measurement using platelet volume ratio. Platelets (Bld) [#/Vol] 344 10*3/uL 140 - 440 10*3/uL [facility] Work Phone: RBC (Bld) [#/Vol] 3.94 10*6/uL Low 4.40 - 5.9 0 10*6/uL [facility] Work Phone: WBC (Bld) [#/Vol] 10.0 10*3/uL 3.6 - 10.7 10*3/uL [facility] Work Phone: Test Performed by [facility], [address] [place], [place] [address] [facility] LAB [facility] Work Phone: Comp Metabolic Panelon 10-28 ALP [Catalytic activity/Vol] 103 U/L Normal 38-126 [facility] Comment on above: Performed By: #### C A19O, LUPUS #### The performing lab is in the report. #### NSEO #### [facility] #### HEMDF, LDH3, BMP3, MG3, PT, CEA2 #### [address] [place] #### B2GPM, B2GPA, B2GPG #### [address] ALT [Catalytic activity/Vol] 26 U/L Normal [...] HEMDF, LDH3, BMP3, MG3, PT, CEA2 #### [address] [place] #### B2GPM, B2GPA, B2GPG #### [address] AST [Catalytic activity/Vol] 24 U/L Normal 15-46 [facility] Comment on above: Performed By: #### C A19O, LUPUS #### The performing lab is in the report. #### NSEO #### [facility] #### HEMDF, LDH3, BMP3, MG3, PT, CEA2 #### [address] [place] #### B2GPM, B2GPA, B2GPG #### [address] Calcium [Mass/Vol] 9.1 mg/dL Normal 8.4-10.4 [facility] Comment on above: Performed By: #### C A19O, LUPUS #### The performing lab is in the report. #### NSEO #### [facility] #### HEMDF, LDH3, BMP3, MG3, PT, CEA2 #### [address] [place] #### B2GPM, B2GPA, B2GPG #### [address] Glucose [Mass/Vol] 117 mg/dL High 70-100 [facility] Comment on above: Performed By: #### C A19O, LUPUS #### The performing lab is in the report. #### NSEO #### [facility] #### HEMDF, LDH3, BMP3, MG3, PT, CEA2 #### [facility] [address] [place] [address] #### B2GPM, B2GPA, B2GPG #### [address] Urea nitrogen [Mass/Vol] 16 mg/dL Normal 7-17 [facility] Comment on above: Performed By: #### C A19O, LUPUS #### The performing lab is in the report. #### NSEO #### [facility] #### HEMDF, LDH3, BMP3, MG3, PT, CEA2 #### [facility] [address] [place] [address] #### B2GPM, B2GPA, B2GPG #### [address] Anion gap [Moles/Vol] 5 mmol/L Normal 3-13 [facility] Comment on above: Performed By: #### C A19O, LUPUS #### The performing lab is in the report. #### NSEO #### [facility] #### HEMDF, LDH3, BMP3, MG3, PT, CEA2 #### [facility] [address] [place] [address] #### B2GPM, B2GPA, B2GPG #### [address] Bilirubin [Mass/Vol] 0.4 mg/dL Normal 0.2-1.3 [facility] Comment on above: Performed By: #### C A19O, LUPUS #### The performing lab is in the report. #### NSEO #### [facility] #### HEMDF, LDH3, BMP3, MG3, PT, CEA2 #### [facility] [address] [place] [address] #### B2GPM, B2GPA, B2GPG #### [address] CO2 [Moles/Vol] 29 mmol/L Normal 22-30 [facility] Comment on above: Performed By: #### C A19O, LUPUS #### The performing lab is in the report. #### NSEO #### [facility] #### HEMDF, LDH3, BMP3, MG3, PT, CEA2 #### [facility] [address] [place] [address] #### B2GPM, B2GPA, B2GPG #### [address] Creatinine [Mass/Vol] 0.71 mg/dL Normal 0.52-1.25 [facility] Comment on above: Performed By: #### C A19O, LUPUS #### The performing lab is in the report. #### NSEO #### [facility] #### HEMDF, LDH3, BMP3, MG3, PT, CEA2 #### [facility] [address] [place] [address] #### B2GPM, B2GPA, B2GPG #### [address] eGFR OTHER > 90.0 Normal >60 [...] [facility] [address] [place] [address] #### B2GPM, B2GPA, B2GPG #### [address] GFR/1.73 sq M.predicted among blacks MDRD (S/P/Bld) [Vol rate/Area] mL/min/{1.73_m2} Normal >60 [facility] Comment on above: Performed By: #### C A19O, LUPUS #### The performing lab is in the report. #### NSEO #### [facility] #### HEMDF, LDH3, BMP3, MG3, PT, CEA2 #### [place] [address] [place] [address] #### B2GPM, B2GPA, B2GPG #### [address] Protein [Mass/Vol] 7.1 g/dL Normal 6.3-8.2 [facility] Comment on above: Performed By: #### C A19O, LUPUS #### The performing lab is in the report. #### NSEO #### [facility] #### HEMDF, LDH3, BMP3, MG3, PT, CEA2 #### [address] [place] [address] #### B2GPM, B2GPA, B2GPG #### [address] [address] Potassium [Moles/Vol] 3.5 mmol/L Normal 3.5-5.1 [facility] Comment on above: Performed By: #### C A19O, LUPUS #### The performing lab is in the report. #### NSEO #### [facility] #### HEMDF, LDH3, BMP3, MG3, PT, CEA2 #### [facility] [address] [place] [address] #### B2GPM, B2GPA, B2GPG #### [address] [address] Sodium [Moles/Vol] 138 mmol/L Normal 135-145 [facility] Comment on above: Performed By: #### C A19O, LUPUS #### The performing lab is in the report. #### NSEO #### [facility] #### HEMDF, LDH3, BMP3, MG3, PT, CEA2 #### [place] [address] [place] [address] #### B2GPM, B2GPA, B2GPG #### [address] [address] Albumin [Mass/Vol] 3.7 g/dL Normal 3.5-5.0 [facility] Comment on above: Performed By: #### C A19O, LUPUS #### The performing lab is in the report. #### NSEO #### [facility] #### HEMDF, LDH3, BMP3, MG3, PT, CEA2 #### [facility] [address] [place] [address] #### B2GPM, B2GPA, B2GPG #### [address] [address] Chloride [Moles/Vol] 104 mmol/L Normal 98-107 [facility] Comment on above: Performed By: #### C A19O, LUPUS #### The performing lab is in the report. #### NSEO #### [facility] #### HEMDF, LDH3, BMP3, MG3, PT, CEA2 #### [facility] [address] [place] [address] #### B2GPM, B2GPA, B2GPG #### [employer] [email or web address] [facility] [address] [place] [address] Comprehensive Metabolic Pane kiel 10-28-2021 Albumin [Mass/Vol] 3.7 g/dL 3.5 - 5.0 g/dL [facility] Work Phone: [phone] ALP (Bld) [Catalytic activity/Vol] 103 U/L 38 - 126 U/L [facility] Work Phone: [phone] ALT [Catalytic activity/Vol] 26 U/L 0 - 49 U/L [employer] [facility] Work Phone: [phone] Comment on above: The ALT test is perf ormed by an updated assay method. Please note that the reference intervals have been changed and are now sex specific. Anion gap [Moles/Vol] 5 mmol/L 3 - 13 mmol/L [facility] [facility] Work Phone: [phone] AST [Catalytic activity/Vol] 24 U/L 15 - 46 U/L [facility] Work Phone: [phone] Bilirubin [Mass/Vol] 0.4 mg/dL 0.2 - 1 .3 mg/dL [facility] Work Phone: [phone] Calcium [Mass/Vol] 9.1 mg/dL 8.4 - 10. 4 mg/dL [facility] Work Phone: [phone] Chloride [Moles/Vol] 104 mmol/L 98 - 10 7 mmol/L [facility] Work Phone: [phone] CO2 [Moles/Vol] 29 mmol/L 22 - 30 mmol/L [facility] Work Phone: [phone] Creatinine [Mass/Vol] 0.71 mg/dL 0.52 - 1.25 mg/dL [employer] [facility] Work Phone: [phone] EGFR IF NonAfrican Pakistani >90.0 >60 mL/min [facility] Work Phone: [phone] Comment on above: KDIGO guidelines pro [...] fraction] 7.1 g/dL 6.3 - 8.2 g/dL [facility] Work Phone: GFR/1.73 sq M.predicted among blacks MDRD (S/P/Bld) [Vol rate/Area] mL/min/{1.73_m2} >60 mL/min [facility] Work Phone: [phone] Glucose [Mass/Vol] 117 mg/dL High 70 - 100 mg/dL [facility] Work Phone: [phone] Interpretation and review of laboratory results Abnormal [facility] Work Phone: [phone] Potassium [Moles/Vol] 3.5 mmol/L 3.5 - 5.1 mmol/L [facility] Work Phone: [phone] Sodium [Moles/Vol] 138 mmol/L 135 - 145 mmol/L [facility] Work Phone: Urea nitrogen (BldV) [Mass/Vol] 16 mg/dL 7 - 17 mg/dL [facility] Work Phone: [phone] Test Performed by [facility], [address] [place], [place] [id number] [place] [address] LAB [facility] Work Phone: Hemogramon 10-28-2021 Erythrocyte distribution width (RBC) [Ratio] 17.1 % High 11.5-14.5 [facility] Comment on above: Performed By: #### C A19O, LUPUS #### The performing lab is in the report. #### NSEO #### [facility] #### HEMDF, LDH3, BMP3, MG3, PT, CEA2 #### [place] [address] [place] #### B2GPM, B2GPA, B2GPG #### [address] Hematocrit (Bld) [Volume fraction] 33.4 % Low 40.0-52.0 [facility] Comment on above: Performed By: #### C A19O, LUPUS #### The performing lab is in the report. #### NSEO #### [facility] #### HEMDF, LDH3, BMP3, MG3, PT, CEA2 #### [address] [place] #### B2GPM, B2GPA, B2GPG #### [address] Hemoglobin (Bld) [Mass/Vol] 11.0 g/dL Low 13.0-18.0 [facility] Comment on above: Performed By: #### C A19O, LUPUS #### The performing lab is in the report. #### NSEO #### [facility] #### HEMDF, LDH3, BMP3, MG3, PT, CEA2 #### [address] [place] #### B2GPM, B2GPA, B2GPG #### [address] MCH (RBC) [Entitic mass] 27.8 pg Normal 26.0-34.0 [facility] Comment on above: Performed By: #### C A19O, LUPUS #### The performing lab is in the report. #### NSEO #### [facility] #### HEMDF, LDH3, BMP3, MG3, PT, CEA2 #### [address] [place] #### B2GPM, B2GPA, B2GPG #### [address] MCHC 32.8 % Normal 32.0-36.0 [facility] Comment on above: Performed By: #### C A19O, LUPUS #### The performing lab is in the report. #### NSEO #### [facility] #### HEMDF, LDH3, BMP3, MG3, PT, CEA2 #### [facility] [address] [place] [address] #### B2GPM, B2GPA, B2GPG #### [address] MCV (RBC) [Entitic vol] 84.8 fL Normal 80.0-98.0 [facility] Comment on above: Performed By: #### C A19O, LUPUS #### The performing lab is in the report. #### NSEO #### [facility] #### HEMDF, LDH3, BMP3, MG3, PT, CEA2 #### [facility] [address] [place] [address] #### B2GPM, B2GPA, B2GPG #### [address] Platelet mean volume (Bld) [Entitic vol] 8.3 fL Normal 7.4-12.4 [facility] Comment on above: Result Comment: MPV is a calculated measurement using platelet volume ratio. Performed By: #### C A19O, LUPUS #### The performing lab is in the report. #### NSEO #### [facility] #### HEMDF, LDH3, BMP3, MG3, PT, CEA2 #### [facility] [address] [place] [address] #### B2GPM, B2GPA, B2GPG #### [address] Platelets (Bld) [#/Vol] 344 10*3/uL Normal 140-440 [facility] Comment on above: Performed By: #### C A19O, LUPUS #### The performing lab is in the report. #### NSEO #### [facility] #### HEMDF, LDH3, BMP3, MG3, PT, CEA2 #### [facility] [address] [place] [address] #### B2GPM, B2GPA, B2GPG #### [address] RBC (Bld) [#/Vol] 3.94 10*6/uL Low 4.40-5.90 [facility] Comment on above: Performed By: #### C A19O, LUPUS #### The performing lab is in the report. #### NSEO #### [facility] #### HEMDF, LDH3, BMP3, MG3, PT, CEA2 #### [facility] [address] [place] [address] #### B2GPM, B2GPA, B2GPG #### [address] WBC (Bld) [#/Vol] 10.0 10*3/uL Normal 3.6-10.7 [facility] Comment on above: Performed By: #### C A19O, LUPUS #### The performing lab is in the report. #### NSEO #### [facility] #### HEMDF, LDH3, BMP3, MG3, PT, CEA2 #### [place] [address] [place] [address] #### B2GPM, B2GPA, B2GPG #### [address] Neuron Specific Enolaseon Neuron Specific Enolase [...] Serum This assay is performed using the [employer] NSE Kryptor Immunoassay. Results obtained with different assay methods or kits cannot be used interchangeably. Results cannot be interpreted as absolute evidence of the presence or absence of malignant disease. This test was developed and its performance characteristics determined by [facility]. It has not been cleared or approved by the [place] Food and Drug Administration. This test was performed in a CLIA certified laboratory and is intended for clinical purposes. Performed By: #### C OVAG #### [facility] [address] [place] [address] Neuron specific enolase (NSE )on 10-28-2021 Neuron Specific Enolase 20.8 [facility] Work Phone: Comment on above: Neuron Specific Enol ase, Serum 20.8 ng/mL H (Ref Interval: <=12.7) NSE and Hgb are elevated in the specimen. The elevated NSE may be a result of hemolysis as NSE is expressed in red blood cells. Interpret results with caution. INTERPRETIVE INFORMATION: Neuron Specific Enolase in Serum This assay is performed using the [employer] NSE Kryptor Immunoassay. Results obtained with different assay methods or kits cannot be used interchangeably. Results cannot be interpreted as absolute evidence of the presence or absence of malignant disease. This test was developed and its performance characteristics determined by [facility]. It has not been cleared or approved by the [place] Food and Drug Administration. This test was performed in a CLIA certified laboratory and is intended for clinical purposes. 1 [facility] LAB [facility] Work Phone: Prothrombin Timeon 2 INR 3.1 High 0.9-1.1 [facility] Comment on [...] [facility] [address] [place] [address] #### B2GPM, B2GPA, B2GPG #### [address] [phone] PT Coag (PPP) [Time] 30.8 s High 9.0-12.0 [facility] Comment on above: Result Comment: . Performed By: #### C A19O, LUPUS #### The performing lab is in the report. #### NSEO #### [facility] #### HEMDF, LDH3, BMP3, MG3, PT, CEA2 #### [facility] [address] [place] [address] #### B2GPM, B2GPA, B2GPG #### [address] [address] Protime-INRon 10-28-2021 INR Coag (Bld) [Relative time] 3.1 {INR} High [facility] Work Phone: Comment on above: [...] Interpretation and review of laboratory results Abnormal [facility] Work Phone: PT Coag (PPP) [Time] 30.8 s High 9.0 - 12.0 s [facility] Work Phone: Comment on above: . Test Performed by [facility], [address], [place], [place] [id number] [place] [address] LAB [facility] Work Phone: MRI BRAIN WO CONTRASTon 10-06 Patient Name: ANDREW SIFUENTES Magnetic Resonance Imaging ACCESSION EXAM DATE/TIME PROCEDURE ORDERING PROVIDER [id number] 10/27/2021 13:14 EDT MRI Brain w/o Contrast UNASSIGNED, UNASSIGNED CPT code 69276 Reason For Exam (MRI Brain w/o Contrast) stroke Patient has CONTRACT NEGOTIATION SPECIALIST shunt in place, please follow Radiology protocol [...] Imaging ACCESSION EXAM DATE/TIME PROCEDURE ORDERING PROVIDER [id number] 10/27/2021 13:14 EDT MRI Brain w/o Contrast UNASSIGNED, UNASSIGNED CPT code 65964 Reason For Exam (MRI Brain w/o Contrast) stroke Patient has CONTRACT NEGOTIATION SPECIALIST shunt in place, please follow Radiology protocol [...] and Time: 10/27/2021 2:39 [facility] Work Phone: [facility] Work Phone: MRI Brain w/o Contraston MRI Brain w/o Contrast Patient Name: [id number] Magnetic Resonance Imaging ACCESSION EXAM DATE/TIME PROCEDURE ORDERING PROVIDER [id number] 10/27/2021 13:14 EDT MRI Brain w/o Contrast UNASSIGNED, UNASSIGNED CPT code 03180 Reason For Exam (MRI Brain w/o Contrast) stroke Patient has CONTRACT NEGOTIATION SPECIALIST shunt in place, please follow Radiology protocol [...] [facility] [address] [place] [address] PT Coag (PPP) [Time] 21.9 s High 9.0-12.0 [facility] Work Phone: Comment on above: . Result Comment: . Performed By: #### P T #### [facility] [address] [place] [address] Protime-INRon 10-27-2021 INR Coag (Bld) [Relative time] 2.1 {INR} High [facility] Work Phone: Comment on above: [...] Interpretation and review of laboratory results Abnormal [facility] Work Phone: Test Performed by [facility], [address], [place], [place] [address] [facility] LAB [facility] Work Phone: CT HEAD WO CONTRASTon 2021 Patient Name: ANDREW SIFUENTES Computed Tomography ACCESSION EXAM DATE/TIME PROCEDURE ORDERING PROVIDER [id number] 10/26/2021 11:[address] Head or Brain w/o EDWIN, RECONCILIATION COORDINATOR, SARINA Contrast CPT code 66432 Reason For Exam (CT Head or Brain w/o Contrast) hydrocephalus. thank you Report CLINICAL INFORMATION: Hydrocephalus. Shunt. 3 mm axial cuts through the head are obtained without IV contrast. The examination is compared to a previous study dated 06/29/2014. FINDINGS: Old CONTRACT NEGOTIATION SPECIALIST shunt tubing is noted bilaterally. The new [...] are clear. IMPRESSION: 1. Old and new CONTRACT NEGOTIATION SPECIALIST shunt tubing. 2. No hydrocephalus. 3. Atrophy and evidence of small-vessel ischemic disease. 4. No CT evidence of an acute intracranial process. Report Dictated on --- Final --- Dictating Physician: MD SOLANO JEFFREY Signed Date and Time: 10/26/2021 11:42 am Signed by: MD SOLANO JEFFREY Transcribed Date and Time: 10/26/2021 11:43 GUY ARMENDARIZ [facility] Albert Solano MD - 10/26/2021 Patient Name: ANDREW SIFUENTES Computed Tomography ACCESSION EXAM DATE/TIME PROCEDURE ORDERING PROVIDER [id number] 10/26/2021 11:[address] Head or Brain w/o EDWIN, RECONCILIATION COORDINATOR, SARINA Contrast CPT code 17968 Reason For Exam (CT Head or Brain w/o Contrast) hydrocephalus. thank you Report CLINICAL INFORMATION: Hydrocephalus. Shunt. 3 mm axial cuts through the head are obtained without IV contrast. The examination is compared to a previous study dated 06/29/2014. FINDINGS: Old CONTRACT NEGOTIATION SPECIALIST shunt tubing is noted bilaterally. The new [...] are clear. IMPRESSION: 1. Old and new CONTRACT NEGOTIATION SPECIALIST shunt tubing. 2. No hydrocephalus. 3. Atrophy [...] Brain w/o Contrast [id number] Computed Tomography ACCESSION EXAM DATE/TIME PROCEDURE ORDERING PROVIDER [id number] 10/26/2021 11:[address] Head or Brain w/o JUNIE PINEDA ALLISON Contrast CPT code 18457 Reason For Exam (CT Head or Brain w/o Contrast) hydrocephalus. thank you Report CLINICAL INFORMATION: Hydrocephalus. Shunt. 3 mm axial cuts through the head are obtained without IV contrast. The examination is compared to a previous study dated 06/29/2014. FINDINGS: Old CONTRACT NEGOTIATION SPECIALIST shunt tubing is noted bilaterally. The new [...] are clear. IMPRESSION: 1. Old and new CONTRACT NEGOTIATION SPECIALIST shunt tubing. 2. No hydrocephalus. 3. Atrophy [...] 10-26 Bony Tompkins MD 10/26/2021 4:06 PM [facility] [address] [place] [id number] ROUTINE EEG REPORT Patient Name: Andrew Sifuentes : 1950 Date of Study: 10/26/2021 Duration Recorded: 23 minutes EEG#: [id number] FASHION CONSULTANT SELLING: CASTRO PROVIDER REQUESTING STUDY: Dr. Barreto REASON FOR EXAM: seizures HISTORY: Andrew Sifuentes is a 71 y.o. 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 At present patient is awake, follows commands, was able to tell his name, and that he was in hospital but not oriented to time. 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 Per daughter patient had seizures in the past and also felt he had staring episodes this morning. Per daughter patient has been essentially bed bound in [place] since May 2021 but prior to that [...] study with video was carried out at [facility]. Scalp electrodes were positioned in person by an chief ultrasound technologist, following patient education, according to the 10-20 International system of electrode placement and maintained for integrity and quality of the recording. EEG data with video was recorded continuously and digitally stored. The chief ultrasound technologist reviewed all automated detections and [...] No normal vari (more content not included)... [employer] Work Phone: [employer] Work Phone: No Panel Informationon 10-26 Radiology Study observation (narrative) [facility] Work Phone: Prothrombin Timeon 2 INR 1.9 High 0.9-1.1 [facility] [email or web address] Comment on above: Result Comment: Harry [...] #### [facility] [address] [place] [address] PT Coag (PPP) [Time] 19.7 s High 9.0-12.0 [facility] Comment on above: Result Comment: . Performed By: #### C OVAG #### [facility] [address] [place] [address] Protime-INRon 10-26-2021 INR Coag (Bld) [Relative time] 1.9 {INR} High [facility] Work Phone: Comment on above: [...] Interpretation and review of laboratory results Abnormal [facility] Work Phone: PT Coag (PPP) [Time] 19.7 s High 9.0 - 12.0 s [facility] Work Phone: Comment on above: . Test Performed by [facility], [address] [place], [place], [place] [address] [facility] LAB [facility] Work Phone: CA 19-9on 10-25-2021 CA 19-9 17 U/mL Normal <=35 [facility] Work Phone: Comment on above: [...] or absence of malignant disease. Performed By: [facility] [address] [place] [address] Hotel Attendant: Quiana Castro MD Result Comment: INTE RPRETIVE [...] or absence of malignant disease. Performed By: [facility] [address] [place] [id number] Hotel Attendant: Quiana Castro MD Performed By: #### C OVAG #### [facility] [address] [place] [address] Cancer Antigen 19-9on 2021 [employer] Work Phone: Prothrombin Timeon INR 1.5 High 0.9-1.1 [facility] Comment on above: Result Comment: Harry mmended [...] Infarction Performed By: #### P T #### [facility] [address] [place] [address] PT Coag (PPP) [Time] 15.6 s High 9.0-12.0 [facility] Comment on above: Result Comment: . Performed By: #### P T #### [facility] [address] [place] [address] Protime-INRon 06-21-2022 INR Coag (Bld) [Relative time] 1.5 {INR} High [facility] Work Phone: Comment on above: Recommended Anticoag [...] Interpretation and review of laboratory results Abnormal [facility] Work Phone: PT Coag (PPP) [Time] 15.6 s High 9.0 - 12.0 s [facility] Work Phone: Comment on above: . Test Performed by [facility] [email or web address] [facility], [address] [place] [id number] [place] [address] LAB [facility] Work Phone: B-2 Glycoprotein (IGA)on Beta-2 Glyco 1 IgA <2.0 U/mL [facility] Work Phone: Comment on above: Interpretive Informa tion: Results equal to or greater than 20 U/mL = POSITIVE Results less than 20 U/mL = NEGATIVE B2 Glycoprotein I (IgM) Abon 10-24-2021 Beta-2 Glyco 1 IgM <1.5 U/mL [facility] Work Phone: Comment on above: Interpretive Informa tion: Results equal to or greater than 20 U/mL = POSITIVE Results less than 20 U/mL = NEGATIVE B2 Glycoprotein I Igg Abon 0 10-24-2021 Beta-2 Glyco 1 IgG <1.4 U/mL [facility] Work Phone: Comment on above: Interpretive Informa tion: Results equal to or greater than 20 U/mL = POSITIVE Results less than 20 U/mL = NEGATIVE Basic Metabolic Panelon 10-06 Anion gap [Moles/Vol] 8 mmol/L Normal 3-13 [facility] Comment on above: Performed By: #### C A19O, LUPUS #### The performing lab is in the report. #### NSEO #### [facility] #### HEMDF, LDH3, BMP3, MG3, PT, CEA2 #### [place] [address] [place] [address] #### B2GPM, B2GPA, B2GPG #### [address] Calcium [Mass/Vol] 8.8 mg/dL Normal 8.4-10.4 [facility] Comment on above: Performed By: #### C A19O, LUPUS #### The performing lab is in the report. #### NSEO #### [facility] #### HEMDF, LDH3, BMP3, MG3, PT, CEA2 #### [address] [place] #### B2GPM, B2GPA, B2GPG #### [address] CO2 [Moles/Vol] 25 mmol/L Normal 22-30 [facility] Comment on above: Performed By: #### C A19O, LUPUS #### The performing lab is in the report. #### NSEO #### [facility] #### HEMDF, LDH3, BMP3, MG3, PT, CEA2 #### [address] [place] #### B2GPM, B2GPA, B2GPG #### [address] Creatinine [Mass/Vol] 0.74 mg/dL Normal 0.52-1.25 [facility] Comment on above: Performed By: #### C A19O, LUPUS #### The performing lab is in the report. #### NSEO #### [facility] #### HEMDF, LDH3, BMP3, MG3, PT, CEA2 #### [address] [place] [address] #### B2GPM, B2GPA, B2GPG #### [facility] [address] [place], [place] eGFR OTHER > 90.0 Normal >60 [...] HEMDF, LDH3, BMP3, MG3, PT, CEA2 #### [facility] [email or web address] [facility] [address] [place] [address] #### B2GPM, B2GPA, B2GPG #### [address] GFR/1.73 sq M.predicted among blacks MDRD (S/P/Bld) [Vol rate/Area] mL/min/{1.73_m2} Normal >60 [facility] Comment on above: Performed By: #### C A19O, LUPUS #### The performing lab is in the report. #### NSEO #### [facility] #### HEMDF, LDH3, BMP3, MG3, PT, CEA2 #### [facility] [address] [place] [address] #### B2GPM, B2GPA, B2GPG #### [facility] [address] [place], [place] Glucose [Mass/Vol] 116 mg/dL High 70-100 [facility] Comment on above: Performed By: #### C A19O, LUPUS #### The performing lab is in the report. #### NSEO #### [facility] #### HEMDF, LDH3, BMP3, MG3, PT, CEA2 #### [place] [address] [place] [address] #### B2GPM, B2GPA, B2GPG #### [address] Urea nitrogen [Mass/Vol] 19 mg/dL High 7-17 [facility] Comment on above: Performed By: #### C A19O, LUPUS #### The performing lab is in the report. #### NSEO #### [facility] #### HEMDF, LDH3, BMP3, MG3, PT, CEA2 #### [address] [place] [address] #### B2GPM, B2GPA, B2GPG #### [address] Chloride [Moles/Vol] 107 mmol/L Normal 98-107 [facility] Comment on above: Performed By: #### C A19O, LUPUS #### The performing lab is in the report. #### NSEO #### [facility] #### HEMDF, LDH3, BMP3, MG3, PT, CEA2 #### [address] [place] [address] #### B2GPM, B2GPA, B2GPG #### [address] Potassium [Moles/Vol] 3.9 mmol/L Normal 3.5-5.1 [facility] Comment on above: Performed By: #### C A19O, LUPUS #### The performing lab is in the report. #### NSEO #### [facility] #### HEMDF, LDH3, BMP3, MG3, PT, CEA2 #### [facility] [address] [place] [address] #### B2GPM, B2GPA, B2GPG #### [facility] [address] [place], [place] Sodium [Moles/Vol] 140 mmol/L Normal 135-145 [facility] Comment on above: Performed By: #### C A19O, LUPUS #### The performing lab is in the report. #### NSEO #### [facility] #### HEMDF, LDH3, BMP3, MG3, PT, CEA2 #### [facility] [address] [place] [address] #### B2GPM, B2GPA, B2GPG #### [facility] [address] [place], [place] Anion gap [Moles/Vol] 8 mmol/L 3 - 13 mmol/L [facility] Calcium [Mass/Vol] 8.8 mg/dL 8.4 - 10. 4 mg/dL [facility] Chloride [Moles/Vol] 107 mmol/L 98 - 10 7 mmol/L [facility] CO2 [Moles/Vol] 25 mmol/L 22 - 30 mmol/L [facility] Creatinine [Mass/Vol] 0.74 mg/dL 0.52 - 1.25 mg/dL [facility] EGFR IF NonAfrican Pakistani >90.0 >60 mL/min [facility] Comment on above: KDIGO guidelines [...] mg/dL [facility] Test Performed by [facility], [address] [place] [address] [facility] Beta-2 Glycoprotein I IgAon 10-24-2021 Beta-2 Glycoprotein I IgA < 2.0 Normal [facility] Comment on above: Result Comment: Inte rpretive Information: Results equal to or greater than 20 U/mL = POSITIVE Results less than 20 U/mL = NEGATIVE Performed By: #### C OVAG #### [facility] [address] [facility] [place] [address] Beta-2 Glycoprotein I IgGon 10-24-2021 Beta-2 Glycoprotein I IgG < 1.4 Normal [facility] Comment on above: Result Comment: Inte rpretive Information: Results equal to or greater than 20 U/mL = POSITIVE Results less than 20 U/mL = NEGATIVE Performed By: #### C OVAG #### [facility] [address] [place] [address] Beta-2 Glycoprotein I IgMon 10-24-2021 Beta-2 Glycoprotein I IgM < 1.5 Normal [facility] Comment on above: Result Comment: Inte rpretive Information: Results equal to or greater than 20 U/mL = POSITIVE Results less than 20 U/mL = NEGATIVE Performed By: #### C OVAG #### [facility] [address] [place] [address] No Panel Informationon 10-24 [facility] Test Performed by [facility], [address] [place] [address] [facility] Work Phone: PROTEIN C FUNCTIONALon 10-24 Interpretation and review of laboratory results Abnormal [facility] Protein C-Functional 185 % High 83 [...] reference intervals for this test in the [facility] Test Directory ([employer]Tobb). Performed by [facility], [address] [facility],[place] [id number] [email or web address], Quiana Castro MD - Lab. Director Protein C, Functionalon 10-06 Protein C, Functional 185 % High 83-168 [facility] Comment on above: Result Comment: INTE [...] reference intervals for this test in the [employer] Test Directory ([employer]obb). Performed by [facility], [address] [place] [address] [email or web address], Quiana Castro MD - Lab. Director Performed By: #### P T #### [facility] [address] [place] [address] Protein S, Functionalon 10-06 Protein S, Functional 138 % Normal 66-143 [facility] Comment on above: INTERPRETIVE INFORMA TION: [...] reference intervals for this test in the [employer] Test Directory ([employer]Tobb). Performed by [facility], [address] [place] [address] [email or web address], Quiana Castro MD - Lab. Director Result [...] reference intervals for this test in the [employer] Test Directory ([employer]Tobb). Performed by [facility], [address] [place] [address] [email or web address], Quiana Castro MD - Lab. Director Performed By: #### P T #### [email or web address] [email or web address] [facility] [address] [place] [address] Prothrombin Timeon 2 INR 1.2 High 0.9-1.1 [facility] Comment on above: Result Comment: Harry mmended [...] HEMDF, LDH3, BMP3, MG3, PT, CEA2 #### [facility] [address] [place] [address] #### B2GPM, B2GPA, B2GPG #### [facility] [address] [place] [address] PT Coag (PPP) [Time] 12.6 s High 9.0-12.0 [facility] Comment on above: Result Comment: . Performed By: #### C A19O, LUPUS #### The performing lab is in the report. #### NSEO #### [facility] #### HEMDF, LDH3, BMP3, MG3, PT, CEA2 #### [facility] [address] [place] [address] #### B2GPM, B2GPA, B2GPG #### [address] [id number] Protime-INRon 10-24-2021 INR Coag (Bld) [Relative time] 1.2 {INR} High [facility] Comment on above: Recommended Anticoag [...] Interpretation and review of laboratory results Abnormal [facility] PT Coag (PPP) [Time] 12.6 s High 9.0 - 12.0 s [facility] Comment on above: . Test Performed by [facility], [address] [place], [address] LAB [facility] Basic Metabolic Panelon 10-05 Anion gap [Moles/Vol] 10 mmol/L Normal 3-13 [facility] Comment on above: Performed By: #### C A19O, LUPUS #### The performing lab is in the report. #### NSEO #### [facility] #### HEMDF, LDH3, BMP3, MG3, PT, CEA2 #### [facility] [address] [place] [address] #### B2GPM, B2GPA, B2GPG #### [address] [address] Calcium [Mass/Vol] 9.6 mg/dL Normal 8.4-10.4 [facility] Comment on above: Performed By: #### C A19O, LUPUS #### The performing lab is in the report. #### NSEO #### [facility] #### HEMDF, LDH3, BMP3, MG3, PT, CEA2 #### [facility] [address] [place] [address] #### B2GPM, B2GPA, B2GPG #### [address] CO2 [Moles/Vol] 27 mmol/L Normal 22-30 [facility] Comment on above: Performed By: #### C A19O, LUPUS #### The performing lab is in the report. #### NSEO #### [facility] #### HEMDF, LDH3, BMP3, MG3, PT, CEA2 #### [address] [place] #### B2GPM, B2GPA, B2GPG #### [address] Glucose [Mass/Vol] 109 mg/dL High 70-100 [facility] Comment on above: Performed By: #### C A19O, LUPUS #### The performing lab is in the report. #### NSEO #### [facility] #### HEMDF, LDH3, BMP3, MG3, PT, CEA2 #### [address] [address] #### B2GPM, B2GPA, B2GPG #### [address] Urea nitrogen [Mass/Vol] 18 mg/dL High 7-17 [facility] Comment on above: Performed By: #### C A19O, LUPUS #### The performing lab is in the report. #### NSEO #### [facility] #### HEMDF, LDH3, BMP3, MG3, PT, CEA2 #### [address] [place] [address] #### B2GPM, B2GPA, B2GPG #### [address] Creatinine [Mass/Vol] 0.82 mg/dL Normal 0.52-1.25 [facility] Comment on above: Performed By: #### C A19O, LUPUS #### The performing lab is in the report. #### NSEO #### [facility] #### HEMDF, LDH3, BMP3, MG3, PT, CEA2 #### [facility] [address] [place] [address] #### B2GPM, B2GPA, B2GPG #### [facility] [address] [place], [place] GFR/1.73 sq M.predicted among blacks MDRD (S/P/Bld) [Vol rate/Area] mL/min/{1.73_m2} Normal >60 [facility] Comment on above: Performed By: #### C A19O, LUPUS #### The performing lab is in the report. #### NSEO #### [facility] #### HEMDF, LDH3, BMP3, MG3, PT, CEA2 #### [facility] [address] [place] [address] #### B2GPM, B2GPA, B2GPG #### [address] GFR/1.73 sq M.predicted among non-blacks MDRD [...] BMP3, MG3, PT, CEA2 #### [place] [address] [place] [address] #### B2GPM, B2GPA, B2GPG #### [address] Chloride [Moles/Vol] 104 mmol/L Normal 98-107 [facility] Comment on above: Performed By: #### C Sena9O LUPUS #### The performing lab is in the report. #### NSEO #### [facility] #### HEMDF, LDH3, BMP3, MG3, PT, CEA2 #### [address] [place] [address] #### B2GPM, B2GPA, B2GPG #### [address] Potassium [Moles/Vol] 3.9 mmol/L Normal 3.5-5.1 [facility] Comment on above: Performed By: #### C Sena9O LUPUS #### The performing lab is in the report. #### NSEO #### [facility] #### HEMDF, LDH3, BMP3, MG3, PT, CEA2 #### [address] [address] #### B2GPM, B2GPA, B2GPG #### [address] Sodium [Moles/Vol] 142 mmol/L Normal 135-145 [facility] Comment on above: Performed By: #### C A19O, LUPUS #### The performing lab is in the report. #### NSEO #### [facility] #### HEMDF, LDH3, BMP3, MG3, PT, CEA2 #### [facility] [address] [place] [address] #### B2GPM, B2GPA, B2GPG #### [facility] [address] [place] [address] Anion gap [Moles/Vol] 10 mmol/L 3 - 13 mmol/L [facility] Work Phone: Calcium [Mass/Vol] 9.6 mg/dL 8.4 - 10. 4 mg/dL [facility] Work Phone: Chloride [Moles/Vol] 104 mmol/L 98 - 10 7 mmol/L [facility] Work Phone: CO2 [Moles/Vol] 27 mmol/L 22 - 30 mmol/L [facility] Work Phone: Creatinine [Mass/Vol] 0.82 mg/dL 0.52 - 1.25 mg/dL [facility] Work Phone: EGFR IF NonAfrican Pakistani 89.9 mL/min >60 [facility] Work Phone: Comment on above: KDIGO guidelines [...] MDRD (S/P/Bld) [Vol rate/Area] mL/min/{1.73_m2} >60 mL/min [facility] Work Phone: Glucose [Mass/Vol] 109 mg/dL High 70 - 100 mg/dL [employer] Work Phone: [phone] Interpretation and review of laboratory results Abnormal [employer] Work Phone: 1) 222 Potassium [Moles/Vol] 3.9 mmol/L 3.5 - 5.1 mmol/L [facility] Work Phone: 1) 222 Sodium [Moles/Vol] 142 mmol/L 135 - 145 mmol/L [employer] Work Phone: 1) 222 Urea nitrogen (BldV) [Mass/Vol] 18 mg/dL High 7 - 17 mg/dL [employer] Work Phone: 1) 222 CBC with Auto Differentialon 10-23-2021 Absolute Baso # 0.1 10*3/uL 0.0 - 0.2 10*3/uL [employer] Work Phone: 1) 222 Absolute Neut # 6.6 10*3/uL 1.8 - 7.0 10*3/uL [employer] Work Phone: 1) 222 Basophils/100 WBC (Bld) 1.1 % 0.0 - 2.0 % [facility] Work Phone: 1) 222 Eosinophils (Bld) [#/Vol] 0.4 10*3/uL 0.0 - 0.5 10*3/uL [employer] Work Phone: 1) 222 Eosinophils/100 WBC (Bld) 3.9 % 1.0 - 6.0 % [facility] Work Phone: 1) 222 Granulocytes/100 WBC (Bld) 64.0 % 40.0 - 80.0 % [facility] Work Phone: 1) 222 Hematocrit (Bld) [Volume fraction] 35.1 % Low 40.0 - 52.0 % [employer] Work Phone: [phone] Hemoglobin (Bld) [Mass/Vol] 11.6 g/dL Low 13.0 - 18.0 g/dL [facility] Work Phone: [phone] Interpretation and review of laboratory results Abnormal [employer] Work Phone: 1) 222 Lymphocytes (Bld) [#/Vol] 2.6 10*3/uL 1.0 - 4.3 10*3/uL [facility] Work Phone: 1() 222 Lymphocytes/100 WBC (Bld) 25.0 % 20.0 - 40.0 % [employer] Work Phone: 1() 222 MCH (RBC) [Entitic mass] 28.4 pg 26.0 - 34.0 pg [employer] Work Phone: [phone] MCHC (RBC) [Mass/Vol] 33.1 % 32.0 - 36.0 % [employer] Work Phone: 1() MCV (RBC) [Entitic vol] 85.9 fL 80.0 - 98.0 fL [employer] Work Phone: 1() Monocytes (Bld) [#/Vol] 0.6 10*3/uL 0.0 - 0.8 10*3/uL [employer] Work Phone: 1() 222 Monocytes/100 WBC (Bld) 6.0 % 2.0 - 10.0 % [employer] Work Phone: 1) Platelet distribution width (Bld) [Ratio] 17.4 % High 11.5 - 14.5 % [employer] Work Phone: 1() Platelet mean volume (Bld) [Entitic vol] 8.1 fL 7.4 - 12.4 fL [employer] Work Phone: 1) Comment on above: MPV is a calculated measurement using platelet volume ratio. Platelets (Bld) [#/Vol] 450 10*3/uL High 140 - 440 10*3/uL [employer] Work Phone: 1() 222 RBC (Bld) [#/Vol] 4.08 10*6/uL Low 4.40 - 5.9 0 10*6/uL [employer] Work Phone: [phone] WBC (Bld) [#/Vol] 10.3 10*3/uL 3.6 - 10.7 10*3/uL [employer] Work Phone: [phone] Test Performed by [facility], [address] [place], [place], [place] [address] [facility] Work Phone: [phone] CEAon 10-23-2021 CEA 0.8 ng/mL 0.0 - 3.0 ng/mL [facility] Work Phone: Test Performed by [facility], [address] [place] [address] [facility] Work Phone: Carcinoembryonic Agon 2021 Carcinoembryonic Ag. 0.8 ng/mL Normal 0.0-3.0 [facility] Comment on above: Performed By: #### C A19O, LUPUS #### The performing lab is in the report. #### NSEO #### [facility] #### HEMDF, LDH3, BMP3, MG3, PT, CEA2 #### [facility] [address] [place] [address] #### B2GPM, B2GPA, B2GPG #### [address] Hemogram w/ Autodiffon 10-23 Abs Baso Cnt 0.1 10*3/uL Normal 0.0-0.2 [facility] Comment on above: Performed By: #### C A19O, LUPUS #### The performing lab is in the report. #### NSEO #### [facility] #### HEMDF, LDH3, BMP3, MG3, PT, CEA2 #### [facility] [address] [place] [id number] #### B2GPM, B2GPA, B2GPG #### [address] Abs Neutrophile Cnt 6.6 10*3/uL Normal 1.8-7.0 [facility] Comment on above: Performed By: #### C A19O, LUPUS #### The performing lab is in the report. #### NSEO #### [facility] #### HEMDF, LDH3, BMP3, MG3, PT, CEA2 #### [facility] [address] [place] [id number] #### B2GPM, B2GPA, B2GPG #### [address] Basophils/100 WBC (Bld) 1.1 % Normal 0.0-2.0 [facility] Comment on above: Performed By: #### C A19O, LUPUS #### The performing lab is in the report. #### NSEO #### [facility] #### HEMDF, LDH3, BMP3, MG3, PT, CEA2 #### [facility] [address] [place] [address] #### B2GPM, B2GPA, B2GPG #### [address] Eosinophils (Bld) [#/Vol] 0.4 10*3/uL Normal 0.0-0.5 [facility] Comment on above: Performed By: #### C A19O, LUPUS #### The performing lab is in the report. #### NSEO #### [facility] #### HEMDF, LDH3, BMP3, MG3, PT, CEA2 #### [facility] [address] [facility] [address] [place], [place] #### B2GPM, B2GPA, B2GPG #### [address] Eosinophils/100 WBC (Bld) 3.9 % Normal 1.0-6.0 [facility] Comment on above: Performed By: #### C A19O, LUPUS #### The performing lab is in the report. #### NSEO #### [facility] #### HEMDF, LDH3, BMP3, MG3, PT, CEA2 #### [facility] [address] [place], [place] #### B2GPM, B2GPA, B2GPG #### [address] Erythrocyte distribution width (RBC) [Ratio] 17.4 % High 11.5-14.5 [facility] Comment on above: Performed By: #### C A19O, LUPUS #### The performing lab is in the report. #### NSEO #### [facility] #### HEMDF, LDH3, BMP3, MG3, PT, CEA2 #### [place] [address] [place] #### B2GPM, B2GPA, B2GPG #### [address] Granulocytes/100 WBC (Bld) 64.0 % Normal 40.0-80.0 [facility] Comment on above: Performed By: #### C A19O, LUPUS #### The performing lab is in the report. #### NSEO #### [facility] #### HEMDF, LDH3, BMP3, MG3, PT, CEA2 #### [address] [place], [place] #### B2GPM, B2GPA, B2GPG #### [address] Hematocrit (Bld) [Volume fraction] 35.1 % Low 40.0-52.0 [facility] Comment on above: Performed By: #### C A19O, LUPUS #### The performing lab is in the report. #### NSEO #### [facility] #### HEMDF, LDH3, BMP3, MG3, PT, CEA2 #### [address] [place], [place] #### B2GPM, B2GPA, B2GPG #### [address] Hemoglobin (Bld) [Mass/Vol] 11.6 g/dL Low 13.0-18.0 [facility] Comment on above: Performed By: #### C A19O, LUPUS #### The performing lab is in the report. #### NSEO #### [facility] #### HEMDF, LDH3, BMP3, MG3, PT, CEA2 #### [address] [facility] [place] #### B2GPM, B2GPA, B2GPG #### [address] Lymphocytes (Bld) [#/Vol] 2.6 10*3/uL Normal 1.0-4.3 [facility] Comment on above: Performed By: #### C A19O, LUPUS #### The performing lab is in the report. #### NSEO #### [facility] #### HEMDF, LDH3, BMP3, MG3, PT, CEA2 #### [facility] [address] [place], [place] #### B2GPM, B2GPA, B2GPG #### [address] Lymphocytes/100 WBC (Bld) 25.0 % Normal 20.0-40.0 [facility] Comment on above: Performed By: #### C A19O, LUPUS #### The performing lab is in the report. #### NSEO #### [facility] #### HEMDF, LDH3, BMP3, MG3, PT, CEA2 #### [facility] [address] [place], [place] #### B2GPM, B2GPA, B2GPG #### [address] MCH (RBC) [Entitic mass] 28.4 pg Normal 26.0-34.0 [facility] Comment on above: Performed By: #### C A19O, LUPUS #### The performing lab is in the report. #### NSEO #### [facility] #### HEMDF, LDH3, BMP3, MG3, PT, CEA2 #### [facility] [address] [place], [place] #### B2GPM, B2GPA, B2GPG #### [address] MCHC 33.1 % Normal 32.0-36.0 [facility] Comment on above: Performed By: #### C A19O, LUPUS #### The performing lab is in the report. #### NSEO #### [facility] #### HEMDF, LDH3, BMP3, MG3, PT, CEA2 #### [facility] [address] [place] [address] #### B2GPM, B2GPA, B2GPG #### [address] MCV (RBC) [Entitic vol] 85.9 fL Normal 80.0-98.0 [facility] Comment on above: Performed By: #### C A19O, LUPUS #### The performing lab is in the report. #### NSEO #### [facility] #### HEMDF, LDH3, BMP3, MG3, PT, CEA2 #### [address] [place], [place] #### B2GPM, B2GPA, B2GPG #### [address] Monocytes (Bld) [#/Vol] 0.6 10*3/uL Normal 0.0-0.8 [facility] Comment on above: Performed By: #### C A19O, LUPUS #### The performing lab is in the report. #### NSEO #### [facility] #### HEMDF, LDH3, BMP3, MG3, PT, CEA2 #### [address] [place] #### B2GPM, B2GPA, B2GPG #### [address] Monocytes/100 WBC (Bld) 6.0 % Normal 2.0-10.0 [facility] Comment on above: Performed By: #### C A19O, LUPUS #### The performing lab is in the report. #### NSEO #### [facility] #### HEMDF, LDH3, BMP3, MG3, PT, CEA2 #### [address] [place] #### B2GPM, B2GPA, B2GPG #### [place] [address] [place], [place] Platelet mean volume (Bld) [Entitic vol] 8.1 fL Normal 7.4-12.4 [facility] Comment on above: Result Comment: MPV is a calculated measurement using platelet volume ratio. Performed By: #### C A19O, LUPUS #### The performing lab is in the report. #### NSEO #### [facility] #### HEMDF, LDH3, BMP3, MG3, PT, CEA2 #### [facility] [address] [place] #### B2GPM, B2GPA, B2GPG #### [address] Platelets (Bld) [#/Vol] 450 10*3/uL High 140-440 [facility] Comment on above: Performed By: #### C A19O, LUPUS #### The performing lab is in the report. #### NSEO #### [facility] #### HEMDF, LDH3, BMP3, MG3, PT, CEA2 #### [facility] [address] [place] [address] #### B2GPM, B2GPA, B2GPG #### [address] RBC (Bld) [#/Vol] 4.08 10*6/uL Low 4.40-5.90 [facility] Comment on above: Performed By: #### C A19O, LUPUS #### The performing lab is in the report. #### NSEO #### [facility] #### HEMDF, LDH3, BMP3, MG3, PT, CEA2 #### [facility] [address] [place] #### B2GPM, B2GPA, B2GPG #### [place] [address] [address] [place], [place] WBC (Bld) [#/Vol] 10.3 10*3/uL Normal 3.6-10.7 [facility] Comment on above: Performed By: #### C A19O, LUPUS #### The performing lab is in the report. #### NSEO #### [facility] #### HEMDF, LDH3, BMP3, MG3, PT, CEA2 #### [facility] [address] [place] [address] #### B2GPM, B2GPA, B2GPG #### [address] [address] LDHon 10-23-2021 LDH 136 U/L Normal 120-246 [facility] Comment on above: Performed By: #### C A19O, LUPUS #### The performing lab is in the report. #### NSEO #### [facility] #### HEMDF, LDH3, BMP3, MG3, PT, CEA2 #### [facility] [address] [place] [address] #### B2GPM, B2GPA, B2GPG #### [address] [address] Lactate Dehydrogenaseon - LD 136 U/L 120 - 246 U/L [facility] Work Phone: MRI ABDOMEN WO CONTRASTon Patient Name: ANDREW SIFUENTES Magnetic Resonance Imaging ACCESSION EXAM DATE/TIME PROCEDURE ORDERING PROVIDER [id number] 10/23/2021 11:08 EDT MRI Abdomen w/o Contrast WING SRIVASTAVA CPT code 70473 Reason For Exam (MRI Abdomen w/o Contrast) [...] Imaging ACCESSION EXAM DATE/TIME PROCEDURE ORDERING PROVIDER [id number] 10/23/2021 11:08 EDT MRI Abdomen w/o Contrast WING SRIVASTAVA CPT code 58355 Reason For Exam (MRI Abdomen w/o Contrast) [...] VLADIMIR Transcribed Date and Time: 10/23/2021 4:36 [facility] Work Phone: MRI ABDOMEN WO CONTRASTOrder ed By: Unknown Result on 10-23-2021 [facility] MRI Abdomen w/o Contraston 0 10-23-2021 MRI Abdomen w/o Contrast Patient [facility]: [id number] Magnetic Resonance Imaging ACCESSION EXAM DATE/TIME PROCEDURE ORDERING PROVIDER [id number] 10/23/2021 11:08 EDT MRI Abdomen w/o Contrast DONOVAN SRIVASTAVAW CPT code 45411 Reason For Exam (MRI Abdomen w/o Contrast) [...] Magnesium [Mass/Vol] 2.1 mg/dL Normal 1.6-2.3 [facility] Comment on above: Performed By: #### C A19O, LUPUS #### The performing lab is in the report. #### NSEO #### [facility] #### HEMDF, LDH3, BMP3, MG3, PT, CEA2 #### [facility] [address] [place] [address] #### B2GPM, B2GPA, B2GPG #### [address] Magnesium [Mass/Vol] 2.1 mg/dL 1.6 - 2 .3 mg/dL [facility] Work Phone: No Panel Informationon 10-23 Test Performed by [facility], [address] [place] [address] [facility] Work Phone: Prothrombin Timeon 2 [...] #### [facility] [address] [place] [address] #### B2GPM, B2GPA, B2GPG #### [address] [phone] PT Coag (PPP) [Time] 12.2 s High 9.0-12.0 [facility] Comment on above: Result Comment: . Performed By: #### C A19O, LUPUS #### The performing lab is in the report. #### NSEO #### [facility] #### HEMDF, LDH3, BMP3, MG3, PT, CEA2 #### [facility] [address] [place] [address] #### B2GPM, B2GPA, B2GPG #### [address] [address] [facility] [place] [address] Protime-INRon 10-23-2021 INR Coag (Bld) [Relative time] 1.1 {INR} [facility] Work Phone: Comment on above: [...] Interpretation and review of laboratory results Abnormal [facility] Work Phone: PT Coag (PPP) [Time] 12.2 s High 9.0 - 12.0 s [facility] Work Phone: Comment on above: . Test Performed by [facility], [address] [place], [place] [id number] [place] [address] LAB [facility] Work Phone: Basic Metabolic Panelon 10-05 Calcium [Mass/Vol] 8.9 mg/dL Normal 8.4-10.4 [facility] Comment on above: Performed By: #### P T #### [facility] [address] [place] [address] Glucose [Mass/Vol] 110 mg/dL High 70-100 [facility] Comment on above: Performed By: #### P T #### [facility] [address] [place] [address] Urea nitrogen [Mass/Vol] 14 mg/dL Normal 7-17 [facility] Comment on above: Performed By: #### P T #### [facility] [address] [place] [address] Anion gap [Moles/Vol] 7 mmol/L Normal 3-13 [facility] Comment on above: Performed By: #### P T #### [facility] [address] [place] [address] CO2 [Moles/Vol] 26 mmol/L Normal 22-30 [facility] Comment on above: Performed By: #### P T #### [facility] [address] [place] [address] Creatinine [Mass/Vol] 0.71 mg/dL Normal 0.52-1.25 [facility] Comment on above: Performed By: #### P T #### [facility] [address] [place] [address] eGFR OTHER > 90.0 Normal >60 [facility] [address] [place] [address] GFR/1.73 sq M.predicted among blacks MDRD (S/P/Bld) [Vol rate/Area] mL/min/{1.73_m2} Normal >60 [facility] Comment on above: Performed By: #### P T #### [facility] [address] [place] [address] Potassium [Moles/Vol] 3.8 mmol/L Normal 3.5-5.1 [facility] Comment on above: Performed By: #### P T #### [facility] [address] [place] [address] Chloride [Moles/Vol] 106 mmol/L Normal 98-107 [facility] Comment on above: Performed By: #### P T #### [facility] [address] [place] [address] Sodium [Moles/Vol] 139 mmol/L Normal 135-145 [facility] Comment on above: Performed By: #### P T #### [facility] [address] [place] [address] Anion gap [Moles/Vol] 7 mmol/L 3 - 13 mmol/L [facility] Calcium [Mass/Vol] 8.9 mg/dL 8.4 - 10. 4 mg/dL [facility] Chloride [Moles/Vol] 106 mmol/L 98 - 10 7 mmol/L [facility] CO2 [Moles/Vol] 26 mmol/L 22 - 30 mmol/L [facility] Creatinine [Mass/Vol] 0.71 mg/dL 0.52 - 1.25 mg/dL [facility] EGFR IF NonAfrican Pakistani >90.0 >60 mL/min [facility] Comment on above: [...] 10*3/uL [facility] Test Performed by [facility], [address] [place], [place], [place] [address] [facility] Abdomen Pelvis Wo Contras ton 10-22-2021 Patient Name: AND[facility]W [facility]IF[facility]ENTES [id number] Computed Tomography ACCESSION EXAM DATE/TIME PROCEDURE ORDERING PROVIDER [id number] 10/22/2021 13:[address] Abdomen/Pelvis (No SRIVASTAVA, WING PO, No IV) CPT code 07138 Reason For Exam (CT Abdomen/Pelvis (No PO, [...] Transcribed Date and Time: 10/22/2021 2:37 [facility] Humphrey Melton MD - 10/22/2021 Patient Name: ANDREW SIFUENTES Computed Tomography ACCESSION EXAM DATE/TIME PROCEDURE ORDERING PROVIDER [id number] 10/22/2021 13:[address] Abdomen/Pelvis (No SRIVASTAVAWING KESSLER PO, No IV) CPT code 30143 Reason For Exam (CT Abdomen/Pelvis (No PO, [...] Abdomen/Pelvis w/o Contrast Patient Name: ANDREW SIFUENTES [facility]#: [id number] Computed Tomography ACCESSION EXAM DATE/TIME PROCEDURE ORDERING PROVIDER [id number] 10/22/2021 13:[address] Abdomen/Pelvis (No SRIVASTAVA, WING PO, No IV) CPT code 15365 Reason For Exam (CT Abdomen/Pelvis (No PO, [...] [facility] [address] [place] [address] Abs Neutrophile Cnt 6.0 10*3/uL Normal 1.8-7.0 [facility] Comment on above: Performed By: #### P T #### [facility] [address] [place] [address] Basophils/100 WBC (Bld) 1.0 % Normal 0.0-2.0 [facility] Comment on above: Performed By: #### P T #### [facility] [address] [place] [address] Eosinophils (Bld) [#/Vol] 0.3 10*3/uL Normal 0.0-0.5 [facility] Comment on above: Performed By: #### P T #### [facility] [address] [place] [address] Eosinophils/100 WBC (Bld) 3.0 % Normal 1.0-6.0 [facility] Comment on above: Performed By: #### P T #### [facility] [address] [place] [address] Erythrocyte distribution width (RBC) [Ratio] 17.1 % High 11.5-14.5 [facility] Comment on above: Performed By: #### P T #### [facility] [address] [place] [address] Granulocytes/100 WBC (Bld) 64.1 % Normal 40.0-80.0 [facility] Comment on above: Performed By: #### P T #### [facility] [address] [place] [address] Hematocrit (Bld) [Volume fraction] 33.4 % Low 40.0-52.0 [facility] Comment on above: Performed By: #### P T #### [facility] [address] [place] [address] Hemoglobin (Bld) [Mass/Vol] 10.9 g/dL Low 13.0-18.0 [facility] Comment on above: Performed By: #### P T #### [facility] [address] [place] [address] Lymphocytes (Bld) [#/Vol] 2.5 10*3/uL Normal 1.0-4.3 [facility] Comment on above: Performed By: #### P T #### [facility] [address] [place] [address] Lymphocytes/100 WBC (Bld) 26.3 % Normal 20.0-40.0 [facility] Comment on above: Performed By: #### P T #### [facility] [address] [place] [address] MCH (RBC) [Entitic mass] 28.2 pg Normal 26.0-34.0 [facility] Comment on above: Performed By: #### P T #### [facility] [address] [place] [address] MCHC 32.7 % Normal 32.0-36.0 [facility] Comment on above: Performed By: #### P T #### [facility] [address] [place] [address] MCV (RBC) [Entitic vol] 86.3 fL Normal 80.0-98.0 [facility] Comment on above: Performed By: #### P T #### [facility] [address] [place] [address] Monocytes (Bld) [#/Vol] 0.5 10*3/uL Normal 0.0-0.8 [facility] Comment on above: Performed By: #### P T #### [facility] [address] [place] [address] Monocytes/100 WBC (Bld) 5.6 % Normal 2.0-10.0 [facility] Comment on above: Performed By: #### P T #### [facility] [address] [place] [address] Platelet mean volume (Bld) [Entitic vol] 7.6 fL Normal 7.4-12.4 [facility] Comment on above: Result Comment: MPV is a calculated measurement using platelet volume ratio. Performed By: #### P T #### [place] [address] [place] [address] Platelets (Bld) [#/Vol] 369 10*3/uL Normal 140-440 [facility] Comment on above: Performed By: #### P T #### [facility] [address] [place] [address] RBC (Bld) [#/Vol] 3.87 10*6/uL Low 4.40-5.90 [facility] Comment on above: Performed By: #### P T #### [place] [address] [place] [address] WBC (Bld) [#/Vol] 9.4 10*3/uL Normal 3.6-10.7 [facility] Comment on above: Performed By: #### P T #### [facility] [address] [place] [address] Magnesiumon 10-22-2021 Magnesium [Mass/Vol] 2.0 mg/dL Normal 1.6-2.3 [facility] Comment on above: Performed By: #### P T #### [place] [address] [place] [address] Magnesium [Mass/Vol] 2.0 mg/dL 1.6 - 2 .3 mg/dL [facility] No Panel Informationon 10-22 Radiology Study observation (narrative) [facility] Work Phone: Test Performed by [facility], [address] [place], [place], [place] [address] [facility] Prothrombin Timeon INR 1.1 Normal 0.9-1.1 [facility] [...] #### [facility] [address] [place] [address] #### B2GPM, B2GPA, B2GPG #### [address] [address] PT Coag (PPP) [Time] 11.8 s Normal 9.0-12.0 [facility] Comment on above: Result Comment: . Performed By: #### C A19O, LUPUS #### The performing lab is in the report. #### NSEO #### [facility] #### HEMDF, LDH3, BMP3, MG3, PT, CEA2 #### [address] [place] [address] #### B2GPM, B2GPA, B2GPG #### [address] [address] Protime-INRon 10-22-2021 INR Coag (Bld) [Relative time] 1.1 {INR} [facility] Work Phone: Comment on above: [...] [Time] 11.8 s 9.0 - 12.0 s [employer] Work Phone: Comment on above: . Test Performed by [facility] [email or web address] [facility], [address] [place], [place] [id number] [place] [address] LAB [facility] Work Phone: VL Ankle Art Brachial Indice s Extremity Bilateralon 10-22-2021 [facility] Ankle Brachial Index Report Patient DO GurpreetB: 1950 Study 10/21/2021 Name: Andrew Gonzalez (71yrs) Date: Age: 71 Account: [id number] Gender: M Loc: 444W BP: Ordering Physician: Shruthi Malik Black Leather Trimmer: Rody Cross RDMS, RVT Interpreting Physician: Carina Call Location: [facility] Indications: Foot wounds. Originally ordered as a full PVR. Ordering RECONCILIATION COORDINATOR had to modify the order to ABIs [...] supine position. Images were obtained using a Minuss vascular ultrasound machine. Arterial pressure indices: + [...] by Carina Call 10/22/2021 13:21 [facility] Carina Call MD - 10/22/2021 [facility] Ankle Brachial Index Report Patient DO GurpreetB: 1950 Study 10/21/2021 Name: Andrew Gonzalez (71yrs) Date: Age: 71 Account: [id number] Gender: M Loc: 444W BP: Ordering Physician: Shruthi Malik Black Leather Trimmer: Rody Cross RDMS, RVT Interpreting Physician: Carina Call Location: [facility] Indications: Foot wounds. Originally ordered as a full PVR. Ordering RECONCILIATION COORDINATOR had to modify the order to ABIs [...] supine position. Images were obtained using a Minuss vascular ultrasound machine. Arterial pressure indices: + [...] electronically signed by Carina Call 10/22/2021 13:21 [employer] Work Phone: [facility] Work Phone: Basic Metabolic Panelon - Calcium [Mass/Vol] 9.1 mg/dL Normal 8.4-10.4 [facility] Comment on above: Performed By: #### C OVAG #### [facility] [address] [place] [address] Anion gap [Moles/Vol] 6 mmol/L Normal 3-13 [facility] Comment on above: Performed By: #### C OVAG #### [facility] [address] [place] [address] CO2 [Moles/Vol] 29 mmol/L Normal 22-30 [facility] Comment on above: Performed By: #### C OVAG #### [facility] [address] [place] [address] Creatinine [Mass/Vol] 0.90 mg/dL Normal 0.52-1.25 [facility] Comment on above: Performed By: #### C OVAG #### [facility] [address] [place] [address] GFR/1.73 sq M.predicted among blacks MDRD (S/P/Bld) [Vol rate/Area] mL/min/{1.73_m2} Normal >60 [facility] Comment on above: Performed By: #### C OVAG #### [facility] [address] [place] [address] GFR/1.73 sq M.predicted among non-blacks MDRD (S/P/Bld) [...] System [address] [place] [address] Glucose [Mass/Vol] 106 mg/dL High 70-100 [facility] Comment on above: Performed By: #### C OVAG #### [facility] [address] [place] [address] Urea nitrogen [Mass/Vol] 18 mg/dL High 7-17 [facility] Comment on above: Performed By: #### C OVAG #### [facility] [address] [place] [address] Chloride [Moles/Vol] 105 mmol/L Normal 98-107 [facility] Comment on above: Performed By: #### C OVAG #### [facility] [address] [place] [address] Potassium [Moles/Vol] 4.3 mmol/L Normal 3.5-5.1 [facility] Comment on above: Performed By: #### C OVAG #### [facility] [address] [place] [address] Sodium [Moles/Vol] 139 mmol/L Normal 135-145 [facility] Comment on above: Performed By: #### C OVAG #### [facility] [address] [place] [address] Anion gap [Moles/Vol] 6 mmol/L 3 - 13 mmol/L [facility] Calcium [Mass/Vol] 9.1 mg/dL 8.4 - 10. 4 mg/dL [facility] Chloride [Moles/Vol] 105 mmol/L 98 - 10 7 mmol/L [facility] CO2 [Moles/Vol] 29 mmol/L 22 - 30 mmol/L [facility] Creatinine [Mass/Vol] 0.9 mg/dL 0.52 - 1.25 mg/dL [facility] EGFR IF NonAfrican Pakistani 86.6 mL/min >60 [facility] Comment on above: KDIGO guidelines [...] 106 mg/dL High 70 - 100 mg/dL [facility] Interpretation and review of laboratory results Abnormal [facility] Potassium [Moles/Vol] 4.3 mmol/L 3.5 - 5.1 mmol/L [facility] Sodium [Moles/Vol] 139 mmol/L 135 - 145 mmol/L [facility] Urea nitrogen (BldV) [Mass/Vol] 18 mg/dL High 7 - 17 mg/dL [facility] Test Performed by [facility], [address] LAB [facility] C-Reactive Proteinon 022 CRP [Mass/Vol] 33.5 mg/L High 0.0-9.9 [facility] Comment on above: Result Comment: . Performed By: #### P T #### [facility] [address] [place] [address] CRP [Mass/Vol] 33.5 mg/L High 0.0 - 9.9 mg/L [facility] Comment on above: . Interpretation and review of laboratory results Abnormal [facility] Test Performed by [facility], [address] LAB [facility] CR Calcaneus 2+ Views Lefton 10-21-2021 CR Calcaneus 2+ Views Left Patient Name: ANDREW SIFUENTES Diagnostic Radiology ACCESSION EXAM DATE/TIME PROCEDURE ORDERING PROVIDER [id number] 10/21/2021 15:30 EDT CR Calcaneus 2+ Views [id number] -SHRUTHI MALIK Left CPT code 45124 Reason For Exam (CR Calcaneus 2+ Views [...] Radiology ACCESSION EXAM DATE/TIME PROCEDURE ORDERING PROVIDER [id number] 10/21/2021 08:16 EDT CR Chest 1 View Frontal [id number] MAY BOGGS CPT code 07533 Reason For Exam (CR Chest 1 View [...] #### [facility] [address] [place] [address] D-Dimer, Quantitativeon - D-Dimer, Quant 1.51 mg/L High <0.19 - 0.50 [facility] Comment on above: [employer] D-Dimer va lues of <0.50 mg/L FEU can be used in combination with a pre-test probability model (e.g. Well's) to exclude pulmonary embolism (PE) disease, as well as an aid in the diagnosis of deep vein thrombosis (DVT). Interpretation and review of laboratory results Abnormal [facility] Test Performed by [facility], [address] [place], [place] [address] [facility] ED Provider Noteon 2 ED Provider Note [facility] ED EMERGENCY DEPARTMENT ENCOUNTER Pt Name: [...] (HCC) ? Kidney stone ? Neuropathy ? 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 Attends [employer]: Not on file ? Active Member [...] #### [facility] [address] [place] [address] Hematocrit (Bld) [Volume fraction] 33.6 % Low 40.0-52.0 [facility] Comment on above: Performed By: #### C OVAG #### [facility] [address] [place] [address] Hemoglobin (Bld) [Mass/Vol] 10.9 g/dL Low 13.0-18.0 [facility] Comment on above: Performed By: #### C OVAG #### [facility] [address] [place] [address] MCH (RBC) [Entitic mass] 27.8 pg Normal 26.0-34.0 [facility] Comment on above: Performed By: #### C OVAG #### [facility] [address] [place] [address] MCHC 32.5 % Normal 32.0-36.0 [facility] Comment on above: Performed By: #### C OVAG #### [facility] [address] [place] [address] MCV (RBC) [Entitic vol] 85.6 fL Normal 80.0-98.0 [facility] Comment on above: Performed By: #### C OVAG #### [facility] [address] [place] [address] Platelet mean volume (Bld) [Entitic vol] 7.7 fL Normal 7.4-12.4 [facility] Comment on above: Result Comment: MPV is a calculated measurement using platelet volume ratio. Performed By: #### C OVAG #### [facility] [address] [place] [address] Platelets (Bld) [#/Vol] 404 10*3/uL Normal 140-440 [facility] Comment on above: Performed By: #### C OVAG #### [facility] [address] [place] [address] RBC (Bld) [#/Vol] 3.93 10*6/uL Low 4.40-5.90 [facility] Comment on above: Performed By: #### C OVAG #### [facility] [address] [place] [address] WBC (Bld) [#/Vol] 11.6 10*3/uL High 3.6-10.7 [facility] Comment on above: Performed By: #### C OVAG #### [facility] [address] [place] [address] Hemogram (CBC)on 10-21-2021 Hematocrit (Bld) [Volume fraction] 33.6 % Low 40.0 - 52.0 % [facility] Hemoglobin (Bld) [Mass/Vol] 10.9 g/dL Low 13.0 - 18.0 g/dL [facility] Interpretation and review of laboratory results Abnormal [facility] MCH (RBC) [Entitic mass] 27.8 pg 26.0 - 34.0 pg [facility] MCHC (RBC) [Mass/Vol] 32.5 % 32.0 - 36.0 % [facility] MCV (RBC) [Entitic vol] 85.6 fL 80.0 - 98.0 fL [facility] Platelet distribution width (Bld) [Ratio] 17.3 % High 11.5 - 14.5 % [facility] Platelet mean volume (Bld) [Entitic vol] 7.7 fL 7.4 - 12.4 fL [facility] Comment on above: MPV is a calculated measurement using platelet volume ratio. Platelets (Bld) [#/Vol] 404 10*3/uL 140 - 440 10*3/uL [facility] RBC (Bld) [#/Vol] 3.93 10*6/uL Low 4.40 - 5.9 0 10*6/uL [facility] WBC (Bld) [#/Vol] 11.6 10*3/uL High 3.6 - 10.7 10*3/uL [facility] Test Performed by [facility], [address], [place], [place] [address] [facility] LAB [facility] NM LUNG VENT/PERFUSION (VQ)o n 10-21-2021 Patient Name: ANDREW SIFUENTES Nuclear Medicine ACCESSION EXAM DATE/TIME PROCEDURE ORDERING PROVIDER [id number] 10/21/2021 07:55 EDT NM Pulmonary Perfusion [id number] MAY BOGGS w/ Vent Aerosol CPT code 57304 A9567 Reason For Exam (NM Pulmonary Perfusion [...] JOHN Transcribed Date and Time: 10/21/2021 8:49 [facility] RAD Henry Harvey MD - 10/21/2021 Patient Name: ANDREW SIFUENTES Nuclear Medicine ACCESSION EXAM DATE/TIME PROCEDURE ORDERING PROVIDER [id number] 10/21/2021 07:55 EDT NM Pulmonary Perfusion [id number] MAY BOGGS w/ Vent Aerosol CPT code 71411 A9567 Reason For Exam (NM Pulmonary Perfusion [...] Medicine ACCESSION EXAM DATE/TIME PROCEDURE ORDERING PROVIDER [id number] 10/21/2021 07:55 EDT NM Pulmonary Perfusion [id number] MAY BOGGS w/ Vent Aerosol CPT code 04911 A9567 Reason For Exam (NM Pulmonary Perfusion [...] Panel Informationon 10-21 Radiology Study observation (narrative) [facility] Work Phone: Prothrombin Timeon 2 [...] #### [facility] [address] [place] [address] PT Coag (PPP) [Time] 11.5 s Normal 9.0-12.0 [facility] Comment on above: Result Comment: . Performed By: #### C OVAG #### [facility] [address] [place] [address] Protime-INRon 10-21-2021 INR Coag (Bld) [Relative time] 1.1 {INR} [facility] Comment on above: Recommended Anticoag [...] [Time] 11.5 s 9.0 - 12.0 s [facility] Comment on above: . Test Performed by [facility], [address], [place], [place] [id number] [place] [address] LAB [place] Retic Count(%)on 10-21-2021 Retic Count(%) 1.6 Normal [facility] Comment on above: Result Comment: Newb orn < 5% Adults 0.5 - 1.5% Performed By: #### P T #### [facility] [address] [place] [address] Reticulocyteson 10-21-[address] Pct 1.6 [facility] Comment on above: Vickery < 5% Adults 0.5 - 1.5% Test Performed by [facility], [address], [place], [place] [id number] [place] [address] [facility] [place] Sed Rateon 10-21-2021 Sed Rate 63 mm/h High 0-10 [facility] Comment on above: Performed By: #### P T #### [facility] [address] [place] [address] Sedimentation Rateon 022 Interpretation and review of laboratory results Abnormal [place] Sed Rate 63 mm/h High 0 - 10 mm/h [facility] Test Performed by [facility], [address] LAB [place] VL CARMELLA Upr/L Extremity Art 1 -2 Levelson 10-21-2021 VL CARMELLA Upr/L Extremity Art 1-2 Levels Patient Name: ANDREW SIFUENTES Ultrasound ACCESSION EXAM DATE/TIME PROCEDURE ORDERING PROVIDER [id number] 10/21/2021 16:12 EDT VL Upr/L Extremity Art [id number] -SHRUTHI MALIK 1-2 Levels CPT code 46158 Reason For Exam (VL Upr/L Extremity Art 1-2 Levels) both lower legs CARMELLA for both feet wounds. Report [facility] Ankle Brachial Index Report Patient DO GurpreetB: 1950 Study 10/21/2021 Name: Andrew Gonzalez (71yrs) Date: Age: 71 Account: [id number] Gender: M Loc: 444W BP: Ordering Physician: Shruthi Malik Black Leather Trimmer: Rody Cross RDMS RVT Interpreting Physician: Carina Call Location: [facility] Indications: Foot wounds. Originally ordered as a full PVR. Ordering RECONCILIATION COORDINATOR had to modify the order to ABIs [...] supine position. Images were obtained using a Minuss vascular ultrasound machine. Arterial pressure indices: + [...] CARINA HENNESSY Cardiovascular ACCESSION EXAM DATE/TIME PROCEDURE [id number] 10/21/2021 16:12 EDT VL Upr/L Extremity Art 1-2 Levels CPT code 36058 Reason For Exam (VL Upr/L Extremity Art 1-2 Levels) both lower legs CARMELLA for both feet wounds. Report [facility] Ankle Brachial Index Report Patient RADHA Sifuentes: 1950 Study 10/21/2021 Name: Andrew Gonzalez (71yrs) Date: Age: 71 Account: [id number] Cardiovascular Report Gender: M Loc: 444W BP: Ordering Physician: Shruthi Malik Black Leather Trimmer: Rody Cross RDMS, RVT Interpreting Physician: Carina Call Location: [facility] Indications: Foot wounds. Originally ordered as a full PVR. Ordering RECONCILIATION COORDINATOR had to modify the order to ABIs [...] in th (more content not included)... Normal [facility] VL LOWER EXTREMITY BILATERAL VENOUS DUPLEXon 10-21-2021 [facility] Lower Extremity Venous Duplex Report Patient Gurpreet, : 1950 Study 10/21/2021 Name: Andrew Gonzalez (71yrs) Date: Age: 71 Account: [id number] Gender: M Loc: 444 BP: Ordering Physician: May Cash Black Leather Trimmer: Rody Cross RDMS, RVT Interpreting Physician: Carina Call Location: [facility] Indications: Bilateral lower leg edema. CRITICAL [...] supine position. Images were obtained using a Minuss vascular ultrasound machine. Venous flow and imaging: [...] + (more content not included)... [facility] CARDIOLOGY Carina Call MD - 10/21/2021 [facility] Lower Extremity Venous Duplex Report Patient DO GurpreetB: 1950 Study 10/21/2021 Name: Andrew Gonzalez (71yrs) Date: Age: 71 Account: [id number] Gender: M Loc: 444 BP: Ordering Physician: May Cash Black Leather Trimmer: Rody Cross RDMS, RVT Interpreting Physician: Carina Call Location: [facility] Indications: Bilateral lower leg edema. CRITICAL [...] supine position. Images were obtained using a Minuss vascular ultrasound machine. Venous flow and imaging: [...] + + +----- (more content not included)... [employer] Work Phone: VL LOWER EXTREMITY BILATERAL VENOUS DUPLEXOrdered By: Carina Call on 10-21-2021 [facility] Work Phone: VL Venous Duplex US Lower Ex t Bilateralon 10-21-2021 VL Venous Duplex US Lower Ext Bilateral Patient Name: ANDREW SIFUENTES Ultrasound ACCESSION EXAM DATE/TIME PROCEDURE ORDERING PROVIDER [id number] 10/21/2021 09:53 EDT VL Venous Duplex [place] [id number] -MAY CASH Lower Ext Bilateral CPT code 42283 Reason For Exam (VL Venous Duplex US Lower Ext Bilateral) bilateral sqwelling redness Report [facility] Lower Extremity Venous Duplex Report Patient DO GurpreetB: 1950 Study 10/21/2021 Name: Andrew Gonzalez (71yrs) Date: Age: 71 Account: [id number] Gender: M Loc: 444 BP: Ordering Physician: May Cash Black Leather Trimmer: Rody Cross RDMS, RVT Interpreting Physician: Carina Call Location: [facility] Indications: Bilateral lower leg edema. CRITICAL [...] supine position. Images were obtained using a Minuss vascular ultrasound machine. Venous flow and imaging: [...] + + (more content not included)... Normal [facility] XR CALCANEUS LEFT (MIN 2 VIE WS)on 10-21-2021 Patient Name: ANDREW SIFUENTES Diagnostic Radiology ACCESSION EXAM DATE/TIME PROCEDURE ORDERING PROVIDER [id number] 10/21/2021 15:30 EDT CR Calcaneus 2+ Views [id number] -SHRUTHI MALIK CPT code 79493 Reason For Exam (CR Calcaneus 2+ Views [...] J Transcribed Date and Time: 10/21/2021 4:33 [facility] Alan Wong MD - 10/21/2021 Patient Name: ANDREW SIFUENTES Diagnostic Radiology ACCESSION EXAM DATE/TIME PROCEDURE ORDERING PROVIDER [id number] 10/21/2021 15:30 EDT CR Calcaneus 2+ Views [id number] -SHRUTHI MALIK Left CPT code 01880 Reason For Exam (CR Calcaneus 2+ Views [...] Radiology ACCESSION EXAM DATE/TIME PROCEDURE ORDERING PROVIDER [id number] 10/21/2021 08:16 EDT CR Chest 1 View Frontal [id number] MAY BOGGS CPT code 15053 Reason For Exam (CR Chest 1 View [...] OSAMA Transcribed Date and Time: 10/21/2021 8:33 [facility] [place] Chandler MD - 10/21/2021 Patient Name: ANDREW SIFUENTES Diagnostic Radiology ACCESSION EXAM DATE/TIME PROCEDURE ORDERING PROVIDER [id number] 10/21/2021 08:16 EDT CR Chest 1 View Frontal [id number] -MAY CASH CPT code 16178 Reason For Exam (CR Chest 1 View [...] OSAMA Transcribed Date and Time: 10/21/2021 8:33 [facility] Work Phone: XR Chest 1 VWOrdered By: Natalie Loyd on 10-21-2021 [facility] Work Phone: Basophil percentageon 2021 Chloride [Moles/Vol] 108 mmol/L 98-107 [facility] Work Phone: Glucose [Mass/Vol] 93 mg/dL 74-106 [facility] Work Phone: Potassium [Moles/Vol] 3.9 mmol/L 3.5-5.1 [facility] Work Phone: [phone] Sodium [Moles/Vol] 140 mmol/L 136-145 [facility] Work Phone: WBC (Bld) [#/Vol] 8.7 10*3/uL 4.4-11.0 [facility] Work Phone: [phone] Blood erythrocytes count (nu mber/volume)on 10-20-2021 RBC (Bld) [#/Vol] 3.63 10*6/uL 4.6-6.2 [facility] Work Phone: Blood hemoglobin measurement (mass/volume)on 10-20-2021 Hemoglobin (Bld) [Mass/Vol] 10.1 g/dL 13.0-16.5 [facility] Work Phone: Blood platelet mean volumeon 10-20-2021 Platelet mean volume (Bld) [Entitic vol] 9.8 fL 6.2-12.0 [facility] Work Phone: Determination of erythrocyte mean corpuscular volume (MCV)on 10-20-2021 MCV (RBC) [Entitic vol] 90.1 fL 80-94 [facility] Work Phone: Hematocrit Auto (Bld) [Volum e fraction]on 10-20-2021 Hematocrit (Bld) [Volume fraction] 32.7 % 40-54 [facility] Work Phone: Laboratory - Chemistry and C hemistry - challengeon 10-20-2021 CO2 [Moles/Vol] 25.0 mmol/L 21.0-32.0 [facility] Work Phone: Urea nitrogen/Creatinine [Mass ratio] 17.4 mg/mg 10-20 [facility] Work Phone: Laboratory - Hematology and Cell countson 10-20-2021 Erythrocyte distribution width (RBC) [Entitic vol] 52.1 fL 35.1-43.9 [facility] Work Phone: Erythrocyte distribution width (RBC) [Ratio] 15.6 % 11.6-14.6 [facility] Work Phone: MCH (RBC) [Entitic mass] 27.8 pg 27.0-32.0 [facility] Work Phone: MCHC Auto (RBC) [Mass/Vol]on 10-20-2021 MCHC (RBC) [Mass/Vol] 30.9 g/dL 32-36 [facility] Work Phone: No Panel Informationon 10-20 Estimated GFR (MDRD) Amer 133 mL/min >60 [facility] Work Phone: Comment on above: GFR Calc Estimated GFR (MDRD) Non-Af Amer 110 mL/min >60 [facility] Work Phone: Comment on above: Non- GFR Calc Platelets bldon 10-20-2021 Platelets (Bld) [#/Vol] 404 10*3/uL 150-450 [facility] Work Phone: Serum or plasma calcium oral urement (mass/volume)on 10-20-2021 Calcium [Mass/Vol] 9.1 mg/dL 8.5-10.1 [facility] Work Phone: Serum or plasma creatinine m easurement (mass/volume)on 10-20-2021 Creatinine [Mass/Vol] 0.75 mg/dL 0.70-1.30 [facility] Work Phone: Comment on above: The validity of the calculated GFR & GFRAA in patients over 70 years has not been determined. Clinical correlation is essential. Serum or plasma urea nitroge n measurement (mass/volume)on 10-20-2021 Urea nitrogen [Mass/Vol] 13 mg/dL 7-18 [facility] Work Phone: Thin prep Papanicolaou smear with manual screeningon 10-20-2021 Thin prep Papanicolaou smear with manual screening 7 5-15 [facility] Work Phone: CNPNon 10-17-2021 CNPN Normal [facility] Absolute lymphocyte counton 09-19-2021 Lymphocytes Auto (Unsp spec) [#/Vol] 1.74 10*3/uL 0.83-4.51 [facility] Work Phone: Basophil percentageon 2021 Basophils/100 WBC (Bld) 0.6 % 0-1 [facility] Work Phone: Bilirubin [Mass/Vol] 0.30 mg/dL 0.20-1.00 [facility] Work Phone: Comment on above: For patients on eltr ombopag therapy, use of Dimension Spangle TBIL is not recommended. Chloride [Moles/Vol] 105 mmol/L 98-107 [facility] Work Phone: [phone] Eosinophils/100 WBC (Bld) 3.5 % 0-5 [facility] Work Phone: [phone] Glucose [Mass/Vol] 91 mg/dL 74-106 [facility] Work Phone: Neutrophils (Bld) [#/Vol] 4.2 10*3/uL 2.0-7.7 [facility] Work Phone: [phone] Neutrophils/100 WBC (Bld) 62.6 % 47-70 [facility] Work Phone: [phone] Potassium [Moles/Vol] 3.8 mmol/L 3.5-5.1 [facility] Work Phone: [phone] Protein [Mass/Vol] 6.3 g/dL 6.4-8.2 [facility] Work Phone: Sodium [Moles/Vol] 139 mmol/L 136-145 [facility] Work Phone: [phone] WBC (Bld) [#/Vol] 6.6 10*3/uL 4.4-11.0 [facility] Work Phone: Blood erythrocytes count (nu mber/volume)on 09-19-2021 RBC (Bld) [#/Vol] 3.47 10*6/uL 4.6-6.2 [facility] Work Phone: Blood hemoglobin measurement (mass/volume)on 09-19-2021 Hemoglobin (Bld) [Mass/Vol] 10.2 g/dL 13.0-16.5 [facility] Work Phone: [phone] Blood lymphocytes/100 leukoc yteson 09-19-2021 Lymphocytes/100 WBC (Bld) 26.2 % 19-41 [facility] Work Phone: Blood monocytes/100 leukocyt eson 09-19-2021 Monocytes/100 WBC (Bld) 6.5 % 0-10 [facility] Work Phone: Blood platelet mean volumeon 09-19-2021 Platelet mean volume (Bld) [Entitic vol] 9.6 fL 6.2-12.0 [facility] Work Phone: Determination of erythrocyte mean corpuscular volume (MCV)on 09-19-2021 MCV (RBC) [Entitic vol] 94.8 fL 80-94 [facility] Work Phone: Hematocrit Auto (Bld) [Volum e fraction]on 09-19-2021 Hematocrit (Bld) [Volume fraction] 32.9 % 40-54 [facility] Work Phone: Laboratory - Chemistry and C hemistry - challengeon 09-19-2021 ALP [Catalytic activity/Vol] 109 U/L 45-117 [facility] Work Phone: ALT [Catalytic activity/Vol] 23 U/L 16-61 [facility] Work Phone: CO2 [Moles/Vol] 26.0 mmol/L 21.0-32.0 [facility] Work Phone: Globulin (S) [Mass/Vol] 3.5 g/dL 2.2-4.2 [facility] Work Phone: Urea nitrogen/Creatinine [Mass ratio] 15.3 mg/mg 10-20 [facility] Work Phone: Laboratory - Hematology and Cell countson 09-19-2021 Erythrocyte distribution width (RBC) [Entitic vol] 59.4 fL 35.1-43.9 [facility] Work Phone: Erythrocyte distribution width (RBC) [Ratio] 17.1 % 11.6-14.6 [facility] Work Phone: Immature granulocytes/100 WBC (Bld) 0.600 % 0.0-0.9 [facility] Work Phone: Comment on above: IG% - Immature Granu locytes (promyelocytes, myelocytes and metamyelocytes) > 1% indicates that a LEFT SHIFT is Present. MCH (RBC) [Entitic mass] 29.4 pg 27.0-32.0 [facility] Work Phone: Nucleated RBC/100 WBC (Bld) [Ratio] 0 % 0-5 [facility] Work Phone: MCHC Auto (RBC) [Mass/Vol]on 09-19-2021 MCHC (RBC) [Mass/Vol] 31.0 g/dL 32-36 [facility] Work Phone: No Panel Informationon 09-19 Estimated GFR (MDRD) Amer 175 mL/min >60 [facility] Work Phone: Comment on above: GFR Calc Estimated GFR (MDRD) Non-Af Amer 145 mL/min >60 [facility] Work Phone: Comment on above: Non- GFR Calc Platelets bldon 09-19-2021 Platelets (Bld) [#/Vol] 342 10*3/uL 150-450 [facility] Work Phone: Serum or plasma albumin oral urement (mass/volume)on 09-19-2021 Albumin [Mass/Vol] 2.8 g/dL 3.2-5.0 [facility] Work Phone: Serum or plasma albumin/glob ulin mass ratioon 09-19-2021 Albumin/Globulin [Mass ratio] 0.8 {ratio} 0.9-2.4 [facility] Work Phone: Serum or plasma calcium oral urement (mass/volume)on 09-19-2021 Calcium [Mass/Vol] 9.0 mg/dL 8.5-10.1 [facility] Work Phone: Serum or plasma creatinine m easurement (mass/volume)on 09-19-2021 Creatinine [Mass/Vol] 0.59 mg/dL 0.70-1.30 [facility] Work Phone: Comment on above: The validity of the calculated GFR & GFRAA in patients over 70 years has not been determined. Clinical correlation is essential. Serum or plasma urea nitroge n measurement (mass/volume)on 09-19-2021 Urea nitrogen [Mass/Vol] 9 mg/dL 7-18 [facility] Work Phone: Thin prep Papanicolaou smear with manual screeningon 09-19-2021 Thin prep Papanicolaou smear with manual screening 12 U/L 15-37 [facility] Work Phone: Thin prep Papanicolaou smear with manual screening 8 5-15 [facility] Work Phone: OPERATIVE NOon 08-22-2021 OPERATIVE NO Normal [facility] Basic metabolic 2000 panelon 08-19-2021 Anion gap [Moles/Vol] 10 mmol/L Normal 9-18 [facility] Comment on above: Order Comment: Speci men Type: BLOOD SPECIMENOrdering Facility: [facility] Address: [address] [place] [address] Performed By: #### 2 4321-2 ####[facility]ORYCLIA [id number] [place] [address] [place] [facility] Calcium [Mass/Vol] 8.6 mg/dL Normal 8.5-10.2 [facility] Comment on above: Order Comment: Speci men Type: BLOOD SPECIMENOrdering Facility: [facility] Address: [address] [place] [address] Performed By: #### 2 4321-2 ####[facility] LAB[facility]ATORYCLIA [id number] [place] [address] [place] Chloride [Moles/Vol] 99 mmol/L Normal 97-105 [facility] Comment on above: Order Comment: Speci men Type: BLOOD SPECIMENOrdering Facility: [facility] Address: [address] [address] Performed By: #### 2 4321-2 ####[facility] LAB[facility]ATORYCLIA [id number] [place] [address] [place] CO2 [Moles/Vol] 29 mmol/L Normal 22-30 [facility] Comment on above: Order Comment: Speci men Type: BLOOD SPECIMENOrdering Facility: [facility] Address: [address] [address] Performed By: #### 2 4321-2 ####[facility] LAB[facility]ATORYCLIA [id number] [address] [place] Creatinine [Mass/Vol] 0.58 mg/dL Low 0.73-1.22 [facility] Comment on above: Order Comment: Speci men Type: BLOOD SPECIMENOrdering Facility: [facility] Address: [address] [place] [address] Performed By: #### 2 4321-2 ####[facility]ORYCLIA [id number] [address] ESTIMATED GLOMERULAR FILTRATION RATE 106 mL/min/1.73m??? Normal >=60 [facility] Comment on above: Order Comment: Speci men Type: BLOOD SPECIMENOrdering Facility: [facility] Address: [address] [place] [address] Result Comment: Luzmaria mated Glomerular Filtration Rate [...] actual GFR. Performed By: #### 2 4321-2 ####[facility]ORYCLIA [id number] [address] [place] Glucose [Mass/Vol] 101 mg/dL High 74-99 [facility] Comment on above: Order Comment: Speci men Type: BLOOD SPECIMENOrdering Facility: [facility] Address: [address] [address] Result Comment: The [place] [employer] Association (ADA) provides guidance for cutoff [...] Standards of Medical Care in Diabetes 2016, [place] [employer]. Diabetes Care. 2016.39(Suppl 1). Performed By: #### 2 4321-2 ####[facility] LAB[facility]ATORYCLIA [id number] [place] [address] [place] Potassium [Moles/Vol] 3.5 mmol/L Low 3.7-5.1 [facility] Comment on above: Order Comment: Shira feldman Type: BLOOD SPECIMENOrdering Facility: [facility] Address: [address] [place] [address] Performed By: #### 2 1-2 ####[facility]ATORYCLIA [id number] [place] [address] [place] Sodium [Moles/Vol] 138 mmol/L Normal 136-144 [facility] Comment on above: Order Comment: Shira feldman Type: BLOOD SPECIMENOrdering Facility: [facility] Address: [address] [place] [address] Performed By: #### 2 4321-2 ####[facility]ATORYCLIA [id number] [place] [address] [place] Urea nitrogen [Mass/Vol] 11 mg/dL Normal 9-24 [facility] Comment on above: Order Comment: Johni francia Type: BLOOD SPECIMENOrdering Facility: [facility] Address: [address] [place] [address] Performed By: #### 2 4321-2 ####[facility]ORYCLIA [id number] [place] [address] [place] CASE MANAGEMon 08-19-2021 CASE MANAGEM Normal [facility] CBC W Auto Differential pane l (Bld)on 08-19-2021 Basophils (Bld) [#/Vol] 0.03 10*3/uL Normal <0.11 [facility] Comment on above: Order Comment: Speci men Type: BLOOD SPECIMENOrdering Facility: [facility] Address: [address] [place] [address] Performed By: #### 5 7021-8 ####[facility]ORATORYCLIA [id number] [address] [place] Basophils/100 WBC (Bld) 0.4 % Normal [facility] Comment on above: Order Comment: Speci men Type: BLOOD SPECIMENOrdering Facility: [facility] Address: [address] [place] [address] Performed By: #### 5 7021-8 ####[facility]ATORYCLIA [id number] [address] [place] Differential cell count method Nom (Bld) Auto Normal [facility] Comment on above: Order Comment: Speci men Type: BLOOD SPECIMENOrdering Facility: [facility] Address: [address] [place] [address] Performed By: #### 5 7021-8 ####[facility]ATORYCLIA [id number] [address] [place] Eosinophils (Bld) [#/Vol] 0.24 10*3/uL Normal <0.46 [facility] Comment on above: Order Comment: Speci men Type: BLOOD SPECIMENOrdering Facility: [facility] Address: [address] [place] [address] Performed By: #### 5 7021-8 ####[facility]ORATORYCLIA [id number] [address] [place] Eosinophils/100 WBC (Bld) 3.1 % Normal [facility] Comment on above: Order Comment: Speci men Type: BLOOD SPECIMENOrdering Facility: [facility] Address: [address] [place] [address] Performed By: #### 5 7021-8 ####[facility]ATORYCLIA [id number] [address] Erythrocyte distribution width (RBC) [Ratio] 17.5 % High 11.5-15.0 [facility] Comment on above: Order Comment: Speci men Type: BLOOD SPECIMENOrdering Facility: [facility] Address: [address] [place] [address] Performed By: #### 5 7021-8 ####[facility]ORATORYCLIA [id number] [address] Hematocrit (Bld) [Volume fraction] 30.2 % Low 39.0-51.0 [facility] Comment on above: Order Comment: Speci men Type: BLOOD SPECIMENOrdering Facility: [facility] Address: [address] [place] [address] Performed By: #### 5 7021-8 ####[facility]ATORYCLIA [id number] [address] STATES [facility] Hemoglobin (Bld) [Mass/Vol] 9.6 g/dL Low 13.0-17.0 [facility] Comment on above: Order Comment: Speci men Type: BLOOD SPECIMENOrdering Facility: [facility] [facility] Address: [address] [place] [address] Performed By: #### 5 7021-8 ####[facility]ORATORYCLIA [id number] [address] IMMATURE GRAN % 0.4 % Normal [facility] Comment on above: Order Comment: Speci men Type: BLOOD SPECIMENOrdering Facility: [facility] Address: [address] [place] [address] Performed By: #### 5 7021-8 ####[facility]ATORYCLIA [id number] [address] IMMATURE GRAN ABS 0.03 k/uL Normal <0.10 [facility] Comment on above: Order Comment: Speci men Type: BLOOD SPECIMENOrdering Facility: [facility] Address: [address] [place], [place] [address] Performed By: #### 5 7021-8 ####[facility]ATORYCLIA [id number] [address] [place] [facility] Lymphocytes (Bld) [#/Vol] 1.71 10*3/uL Normal 1.00-4.00 [facility] Comment on above: Order Comment: Speci men Type: BLOOD SPECIMENOrdering Facility: [facility] Address: [address] [place] [address] Performed By: #### 5 7021-8 ####[facility]ATORYCLIA [id number] [address] Lymphocytes/100 WBC (Bld) 22.2 % Normal [facility] Comment on above: Order Comment: Speci men Type: BLOOD SPECIMENOrdering Facility: [facility] Address: [address] [place] [address] Performed By: #### 5 7021-8 ####[facility]ATORYCLIA [id number] [address] [place] [facility] MCH (RBC) [Entitic mass] 29.4 pg Normal 26.0-34.0 [facility] Comment on above: Order Comment: Speci men Type: BLOOD SPECIMENOrdering Facility: [facility] Address: [address] [place] [address] Performed By: #### 5 7021-8 ####[facility]ATORYCLIA [id number] [address] [place] MCHC (RBC) [Mass/Vol] 31.8 g/dL Normal 30.5-36.0 [facility] Comment on above: Order Comment: Speci men Type: BLOOD SPECIMENOrdering Facility: [facility] Address: [address] [place] [address] Performed By: #### 5 7021-8 ####[facility]ATORYCLIA [id number] [address] [place] MCV (RBC) [Entitic vol] 92.6 fL Normal 80.0-100.0 [facility] Comment on above: Order Comment: Speci men Type: BLOOD SPECIMENOrdering Facility: [facility] Address: [address] [place] [address] Performed By: #### 5 7021-8 ####[facility]ORATORYCLIA [id number] [place] [address] [place] Monocytes (Bld) [#/Vol] 0.50 10*3/uL Normal <0.87 [facility] Comment on above: Order Comment: Speci men Type: BLOOD SPECIMENOrdering Facility: [facility] Address: [address] [place] [address] Performed By: #### 5 7021-8 ####[facility]ATORYCLIA [id number] [address] [place] Monocytes/100 WBC (Bld) 6.5 % Normal [facility] Comment on above: Order Comment: Speci men Type: BLOOD SPECIMENOrdering Facility: [facility] Address: [address] [place] [address] Performed By: #### 5 7021-8 ####[facility]ATORYCLIA [id number] [place] [address] [place] Neutrophils (Bld) [#/Vol] 5.20 10*3/uL Normal 1.45-7.50 [facility] Comment on above: Order Comment: Speci men Type: BLOOD SPECIMENOrdering Facility: [facility] Address: [address] [place] [address] Performed By: #### 5 7021-8 ####[facility]ORATORYCLIA [id number] [place] [address] [place] Neutrophils/100 WBC (Bld) 67.4 % Normal [facility] Comment on above: Order Comment: Speci men Type: BLOOD SPECIMENOrdering Facility: [facility] Address: [address] [place] [address] Performed By: #### 5 7021-8 ####[facility]ORATORYCLIA [id number] [address] [place] Nucleated RBC (Bld) [#/Vol] 10*3/uL Normal <0.01 [facility] Comment on above: Order Comment: Speci men Type: BLOOD SPECIMENOrdering Facility: [facility] Address: [address] [place] [address] Performed By: #### 5 7021-8 ####[facility]ATORYCLIA [id number] [address] [place] Nucleated RBC/100 WBC (Bld) [Ratio] 0.0 /100 WBC Normal [facility] Comment on above: Order Comment: Speci men Type: BLOOD SPECIMENOrdering Facility: [facility] Address: [address] [place] [address] Performed By: #### 5 7021-8 ####[facility]ATORYCLIA [id number] [address] [place] Platelet mean volume (Bld) [Entitic vol] 8.9 fL Low 9.0-12.7 [facility] Comment on above: Order Comment: Speci men Type: BLOOD SPECIMENOrdering Facility: [facility] Address: [address] [place] [address] Performed By: #### 5 7021-8 ####[facility]ATORYCLIA [id number] [address] [place] Platelets (Bld) [#/Vol] 408 10*3/uL High 150-400 [facility] Comment on above: Order Comment: Speci men Type: BLOOD SPECIMENOrdering Facility: [facility] Address: [address] [place] [address] Performed By: #### 5 7021-8 ####[facility]ATORYCLIA [id number] [address] [place] RBC (Bld) [#/Vol] 3.26 10*6/uL Low 4.20-6.00 [facility] Comment on above: Order Comment: Speci men Type: BLOOD SPECIMENOrdering Facility: [facility] Address: [address] [place] [address] Performed By: #### 5 7021-8 ####[facility]ATORYCLIA [id number] [place] [address] [place] WBC (Bld) [#/Vol] 7.71 10*3/uL Normal 3.70-11.00 [facility] Comment on above: Order Comment: Speci men Type: BLOOD SPECIMENOrdering Facility: [facility] Address: [address] [place] [address] Performed By: #### 5 7021-8 ####[facility]ATORYCLIA [id number] [address] [place] CNDSon 08-19-2021 CNDS Normal [facility] CONSULT PROGon 08-19-2021 CONSULT PROG Normal [facility] THERAPY NTon 08-19-2021 THERAPY NT Normal [facility] Basic metabolic 2000 panelon 08-18-2021 Anion gap [Moles/Vol] 11 mmol/L Normal 9-18 [facility] Comment on above: Order Comment: Speci men Type: BLOOD SPECIMENOrdering Facility: [facility] Address: [address] [place] [address] Performed By: #### 2 4321-2 ####[facility]ATORYCLIA [id number] [address] [place] Calcium [Mass/Vol] 8.6 mg/dL Normal 8.5-10.2 [facility] Comment on above: Order Comment: Speci men Type: BLOOD SPECIMENOrdering Facility: [facility] Address: [address] [place] [address] Performed By: #### 2 4321-2 ####[facility]ATORYCLIA [id number] [place] [address] [place] Chloride [Moles/Vol] 98 mmol/L Normal 97-105 [facility] Comment on above: Order Comment: Speci men Type: BLOOD SPECIMENOrdering Facility: [facility] Address: [address] [place], [place] [address] Performed By: #### 2 4321-2 ####[facility]ATORYCLIA [id number] [address] [place] CO2 [Moles/Vol] 28 mmol/L Normal 22-30 [facility] Comment on above: Order Comment: Speci men Type: BLOOD SPECIMENOrdering Facility: [facility] Address: [address] [place] [address] Performed By: #### 2 4321-2 ####[facility]ATORYCLIA [id number] [address] [place] Creatinine [Mass/Vol] 0.56 mg/dL Low 0.73-1.22 [facility] Comment on above: Order Comment: Speci men Type: BLOOD SPECIMENOrdering Facility: [facility] Address: [address] [place] [address] Performed By: #### 2 4321-2 ####[facility]PITALCLIA [id number] [address] ESTIMATED GLOMERULAR FILTRATION RATE 107 mL/min/1.73m??? Normal >=60 [facility] Comment on above: Order Comment: Speci men Type: BLOOD SPECIMENOrdering Facility: [facility] Address: [address] [place] [address] Result Comment: Luzmaria mated Glomerular Filtration Rate [...] actual GFR. Performed By: #### 2 4321-2 ####[facility]ATORYCLIA [id number] [address] Glucose [Mass/Vol] 113 mg/dL High 74-99 [facility] Comment on above: Order Comment: Speci men Type: BLOOD SPECIMENOrdering Facility: [facility] Address: [address] [address] Result Comment: The [place] [employer] (ADA) provides guidance for cutoff [...] Standards of Medical Care in Diabetes 2016, [place] [employer]. Diabetes Care. 2016.39(Suppl 1). Performed By: #### 2 4321-2 ####[facility]ATORYCLIA [id number] [place] [address] [place] Potassium [Moles/Vol] 3.5 mmol/L Low 3.7-5.1 [facility] Comment on above: Order Comment: Speci men Type: BLOOD SPECIMENOrdering Facility: [facility] Address: [address] [address] Performed By: #### 2 1-2 ####[facility]ATORYCLIA [id number] [place] [address] [place] Sodium [Moles/Vol] 137 mmol/L Normal 136-144 [facility] Comment on above: Order Comment: Speci men Type: BLOOD SPECIMENOrdering Facility: [facility] Address: [address] [address] Performed By: #### 2 1-2 ####[facility]ATORYCLIA [id number] [place] [address] [place] Urea nitrogen [Mass/Vol] 10 mg/dL Normal 9-24 [facility] Comment on above: Order Comment: Speci men Type: BLOOD SPECIMENOrdering Facility: [facility] Address: [address] [address] Performed By: #### 2 4321-2 ####[facility]ATORYCLIA [id number] [place] [address] [place] CBC W Auto Differential pane l (Bld)on 08-18-2021 Basophils (Bld) [#/Vol] 10*3/uL Normal <0.11 [facility] Comment on above: Order Comment: Speci men Type: BLOOD SPECIMENOrdering Facility: [facility] Address: [address] [place] [address] Performed By: #### 5 7021-8 ####[facility]ATORYCLIA [id number] [address] [place] Basophils/100 WBC (Bld) 0.3 % Normal [facility] Comment on above: Order Comment: Speci men Type: BLOOD SPECIMENOrdering Facility: [facility] Address: [address] [place] [address] Performed By: #### 5 7021-8 ####[facility]ORYCLIA [id number] [address] Differential cell count method Nom (Bld) Auto Normal [facility] Comment on above: Order Comment: Speci men Type: BLOOD SPECIMENOrdering Facility: [facility] Address: [address] [place] [address] Performed By: #### 5 7021-8 ####[facility]ATORYCLIA [id number] [address] [place] Eosinophils (Bld) [#/Vol] 0.37 10*3/uL Normal <0.46 [facility] Comment on above: Order Comment: Speci men Type: BLOOD SPECIMENOrdering Facility: [facility] Address: [address] [place] [address] Performed By: #### 5 7021-8 ####[facility]ORYCLIA [id number] [address] Eosinophils/100 WBC (Bld) 4.8 % Normal [facility] Comment on above: Order Comment: Speci men Type: BLOOD SPECIMENOrdering Facility: [facility] Address: [address] [address] Performed By: #### 5 7021-8 ####[facility]ATORYCLIA [id number] [address] Erythrocyte distribution width (RBC) [Ratio] 17.5 % High 11.5-15.0 [facility] Comment on above: Order Comment: Speci men Type: BLOOD SPECIMENOrdering Facility: [facility] Address: [address] [place] [address] Performed By: #### 5 7021-8 ####[facility]ATORYCLIA [id number] [address] Hematocrit (Bld) [Volume fraction] 30.2 % Low 39.0-51.0 [facility] Comment on above: Order Comment: Speci men Type: BLOOD SPECIMENOrdering Facility: [facility] Address: [address] [place] [address] Performed By: #### 5 7021-8 ####[facility]ORYCLIA [id number] [address] Hemoglobin (Bld) [Mass/Vol] 9.5 g/dL Low 13.0-17.0 [facility] Comment on above: Order Comment: Speci men Type: BLOOD SPECIMENOrdering Facility: [facility] Address: [address] [place] [address] Performed By: #### 5 7021-8 ####[facility]ATORYCLIA [id number] [address] IMMATURE GRAN % 0.4 % Normal [facility] Comment on above: Order Comment: Speci men Type: BLOOD SPECIMENOrdering Facility: [facility] Address: [address] [place] [address] Performed By: #### 5 7021-8 ####[facility]ATORYCLIA [id number] [address] IMMATURE GRAN ABS 0.03 k/uL Normal <0.10 [facility] Comment on above: Order Comment: Speci men Type: BLOOD SPECIMENOrdering Facility: [facility] Address: [address] [place] [address] Performed By: #### 5 7021-8 ####[facility]ATORYCLIA [id number] [address] Lymphocytes (Bld) [#/Vol] 1.85 10*3/uL Normal 1.00-4.00 [facility] Comment on above: Order Comment: Speci men Type: BLOOD SPECIMENOrdering Facility: [facility] Address: [address] [place] [address] Performed By: #### 5 7021-8 ####[facility]ATORYCLIA [id number] [address] Lymphocytes/100 WBC (Bld) 23.8 % Normal [facility] Comment on above: Order Comment: Speci men Type: BLOOD SPECIMENOrdering Facility: [facility] Address: [address] [place] [address] Performed By: #### 5 7021-8 ####[facility]ATORYCLIA [id number] [address] MCH (RBC) [Entitic mass] 29.5 pg Normal 26.0-34.0 [facility] Comment on above: Order Comment: Speci men Type: BLOOD SPECIMENOrdering Facility: [facility] Address: [address] [place] [address] Performed By: #### 5 7021-8 ####[facility]ORATORYCLIA [id number] [address] [place] [facility] MCHC (RBC) [Mass/Vol] 31.5 g/dL Normal 30.5-36.0 [facility] Comment on above: Order Comment: Speci men Type: BLOOD SPECIMENOrdering Facility: [facility] Address: [address] [place] [address] Performed By: #### 5 7021-8 ####[facility]ATORYCLIA [id number] [address] [place] MCV (RBC) [Entitic vol] 93.8 fL Normal 80.0-100.0 [facility] Comment on above: Order Comment: Speci men Type: BLOOD SPECIMENOrdering Facility: [facility] Address: [address] [place] [address] Performed By: #### 5 7021-8 ####[facility]ATORYCLIA [id number] [place] [address] [place] Monocytes (Bld) [#/Vol] 0.49 10*3/uL Normal <0.87 [facility] Comment on above: Order Comment: Speci men Type: BLOOD SPECIMENOrdering Facility: [facility] Address: [address] [place] [address] Performed By: #### 5 7021-8 ####[facility]ATORYCLIA [id number] [address] [place] Monocytes/100 WBC (Bld) 6.3 % Normal [facility] Comment on above: Order Comment: Speci men Type: BLOOD SPECIMENOrdering Facility: [facility] Address: [address] [place] [address] Performed By: #### 5 7021-8 ####[facility]ATORYCLIA [id number] [address] [place] Neutrophils (Bld) [#/Vol] 5.00 10*3/uL Normal 1.45-7.50 [facility] Comment on above: Order Comment: Speci men Type: BLOOD SPECIMENOrdering Facility: [facility] Address: [address] [place] [address] Performed By: #### 5 7021-8 ####[facility]ATORYCLIA [id number] [address] [place] Neutrophils/100 WBC (Bld) 64.4 % Normal [facility] Comment on above: Order Comment: Speci men Type: BLOOD SPECIMENOrdering Facility: [facility] Address: [address] [place] [address] Performed By: #### 5 7021-8 ####[facility]ORYCLIA [id number] [address] [place] Nucleated RBC (Bld) [#/Vol] 10*3/uL Normal <0.01 [facility] Comment on above: Order Comment: Speci men Type: BLOOD SPECIMENOrdering Facility: [facility] Address: [address] [place] [address] Performed By: #### 5 7021-8 ####[facility]ORYCLIA [id number] [address] [place] Nucleated RBC/100 WBC (Bld) [Ratio] 0.0 /100 WBC Normal [facility] Comment on above: Order Comment: Speci men Type: BLOOD SPECIMENOrdering Facility: [facility] Address: [address] [place] [address] Performed By: #### 5 7021-8 ####[facility]ORYCLIA [id number] [address] [place] Platelet mean volume (Bld) [Entitic vol] 9.1 fL Normal 9.0-12.7 [facility] Comment on above: Order Comment: Speci men Type: BLOOD SPECIMENOrdering Facility: [facility] Address: [address] [place] [address] Performed By: #### 5 7021-8 ####[facility]ORYCLIA [id number] [address] [place] Platelets (Bld) [#/Vol] 391 10*3/uL Normal 150-400 [facility] Comment on above: Order Comment: Speci men Type: BLOOD SPECIMENOrdering Facility: [facility] Address: [address] [place], [place] [address] Performed By: #### 5 7021-8 ####[facility]ATORYCLIA [id number] [address] [place] RBC (Bld) [#/Vol] 3.22 10*6/uL Low 4.20-6.00 [facility] Comment on above: Order Comment: Speci men Type: BLOOD SPECIMENOrdering Facility: [facility] Address: [address] [place] [address] Performed By: #### 5 7021-8 ####[facility]ATORYCLIA [id number] [place] [address] [place] WBC (Bld) [#/Vol] 7.76 10*3/uL Normal 3.70-11.00 [facility] Comment on above: Order Comment: Speci men Type: BLOOD SPECIMENOrdering Facility: [facility] Address: [address] [place] [address] Performed By: #### 5 7021-8 ####[facility]ATORYCLIA [id number] [address] [place] CONSULT PROGon 08-18-2021 CONSULT PROG Normal [facility] CASE MANAGEMon 08-17-2021 CASE MANAGEM Normal [facility] CBC W Auto Differential pane l (Bld)on 08-17-2021 Basophils (Bld) [#/Vol] 0.04 10*3/uL Normal <0.11 [facility] Comment on above: Order Comment: Speci men Type: BLOOD SPECIMENOrdering Facility: [facility] Address: [address] [place] [address] Performed By: #### 5 7021-8 ####[facility]ORYCLIA [id number] [address] [place] Basophils/100 WBC (Bld) 0.5 % Normal [facility] Comment on above: Order Comment: Speci men Type: BLOOD SPECIMENOrdering Facility: [facility] Address: [address] [place] [address] Performed By: #### 5 7021-8 ####[facility]ATORYCLIA [id number] [place] [address] [place] Differential cell count method Nom (Bld) Auto Normal [facility] Comment on above: Order Comment: Speci men Type: BLOOD SPECIMENOrdering Facility: [facility] Address: [address] [address] Performed By: #### 5 7021-8 ####[facility]ATORYCLIA [id number] [address] [place] Eosinophils (Bld) [#/Vol] 0.31 10*3/uL Normal <0.46 [facility] Comment on above: Order Comment: Speci men Type: BLOOD SPECIMENOrdering Facility: [facility] Address: [address] [place] [address] Performed By: #### 5 7021-8 ####[facility]ORYCLIA [id number] [address] Eosinophils/100 WBC (Bld) 3.7 % Normal [facility] Comment on above: Order Comment: Speci men Type: BLOOD SPECIMENOrdering Facility: [facility] Address: [address] [place] [address] Performed By: #### 5 7021-8 ####[facility]ATORYCLIA [id number] [address] Erythrocyte distribution width (RBC) [Ratio] 17.4 % High 11.5-15.0 [facility] Comment on above: Order Comment: Speci men Type: BLOOD SPECIMENOrdering Facility: [facility] Address: [address] [place] [address] Performed By: #### 5 7021-8 ####[facility]ORYCLIA [id number] [address] Hematocrit (Bld) [Volume fraction] 30.6 % Low 39.0-51.0 [facility] Comment on above: Order Comment: Speci men Type: BLOOD SPECIMENOrdering Facility: [facility] Address: [address] [place] [address] Performed By: #### 5 7021-8 ####[facility]ORYCLIA [id number] [address] [place] Hemoglobin (Bld) [Mass/Vol] 9.6 g/dL Low 13.0-17.0 [facility] Comment on above: Order Comment: Speci men Type: BLOOD SPECIMENOrdering Facility: [facility] Address: [address] [place] [address] Performed By: #### 5 7021-8 ####[facility]ORYCLIA [id number] [address] IMMATURE GRAN % 0.2 % Normal [facility] Comment on above: Order Comment: Speci men Type: BLOOD SPECIMENOrdering Facility: [facility] Address: [address] [place] [address] Performed By: #### 5 7021-8 ####[facility]ATORYCLIA [id number] [address] IMMATURE GRAN ABS <0.03 Normal <0.10 [facility] Comment on above: Order Comment: Speci men Type: BLOOD SPECIMENOrdering Facility: [facility] Address: [address] [place] [address] Performed By: #### 5 7021-8 ####[facility]ORYCLIA [id number] [address] Lymphocytes (Bld) [#/Vol] 1.66 10*3/uL Normal 1.00-4.00 [facility] Comment on above: Order Comment: Speci men Type: BLOOD SPECIMENOrdering Facility: [facility] Address: [address] [place] [address] Performed By: #### 5 7021-8 ####[facility]ORYCLIA [id number] [address] Lymphocytes/100 WBC (Bld) 19.9 % Normal [facility] Comment on above: Order Comment: Speci men Type: BLOOD SPECIMENOrdering Facility: [facility] Address: [address] [place] [address] Performed By: #### 5 7021-8 ####[facility] LABORATORYCLIA [id number] [address] MCH (RBC) [Entitic mass] 28.9 pg Normal 26.0-34.0 [facility] Comment on above: Order Comment: Speci men Type: BLOOD SPECIMENOrdering Facility: [facility] Address: [address] [place] [address] Performed By: #### 5 7021-8 ####[facility] LABORATORYCLIA [id number] [address] [facility] MCHC (RBC) [Mass/Vol] 31.4 g/dL Normal 30.5-36.0 [facility] Comment on above: Order Comment: Speci men Type: BLOOD SPECIMENOrdering Facility: [facility] Address: [address] [place] [address] Performed By: #### 5 7021-8 ####[facility] LABORATORYCLIA [id number] [address] MCV (RBC) [Entitic vol] 92.2 fL Normal 80.0-100.0 [facility] Comment on above: Order Comment: Speci men Type: BLOOD SPECIMENOrdering Facility: [facility] Address: [address] [place] [address] Performed By: #### 5 7021-8 ####[facility]ORATORYCLIA [id number] [address] Monocytes (Bld) [#/Vol] 0.52 10*3/uL Normal <0.87 [facility] Comment on above: Order Comment: Speci men Type: BLOOD SPECIMENOrdering Facility: [facility] Address: [address] [place] [address] Performed By: #### 5 7021-8 ####[facility]ORATORYCLIA [id number] [address] Monocytes/100 WBC (Bld) 6.2 % Normal [facility] Comment on above: Order Comment: Speci men Type: BLOOD SPECIMENOrdering Facility: [facility] Address: [address] [place] [address] Performed By: #### 5 7021-8 ####[facility]ATORYCLIA [id number] [address] [place] Neutrophils (Bld) [#/Vol] 5.78 10*3/uL Normal 1.45-7.50 [facility] Comment on above: Order Comment: Speci men Type: BLOOD SPECIMENOrdering Facility: [facility] Address: [address] [place] [address] Performed By: #### 5 7021-8 ####[facility]ORATORYCLIA [id number] [address] [place] Neutrophils/100 WBC (Bld) 69.5 % Normal [facility] Comment on above: Order Comment: Speci men Type: BLOOD SPECIMENOrdering Facility: [facility] Address: [address] [place] [address] Performed By: #### 5 7021-8 ####[facility]ATORYCLIA [id number] [address] Nucleated RBC (Bld) [#/Vol] 10*3/uL Normal <0.01 [facility] Comment on above: Order Comment: Speci men Type: BLOOD SPECIMENOrdering Facility: [facility] Address: [address] [place] [address] Performed By: #### 5 7021-8 ####[facility]ORATORYCLIA [id number] [address] [place] Nucleated RBC/100 WBC (Bld) [Ratio] 0.0 /100 WBC Normal [facility] Comment on above: Order Comment: Speci men Type: BLOOD SPECIMENOrdering Facility: [facility] Address: [address] [place] [address] Performed By: #### 5 7021-8 ####[facility]ATORYCLIA [id number] [address] [place] Platelet mean volume (Bld) [Entitic vol] 9.2 fL Normal 9.0-12.7 [facility] Comment on above: Order Comment: Speci men Type: BLOOD SPECIMENOrdering Facility: [facility] Address: [address] [place] [address] Performed By: #### 5 7021-8 ####[facility]ORATORYCLIA [id number] [address] [facility] Platelets (Bld) [#/Vol] 379 10*3/uL Normal 150-400 [facility] Comment on above: Order Comment: Speci men Type: BLOOD SPECIMENOrdering Facility: [facility] Address: [address] [place] [address] Performed By: #### 5 7021-8 ####[facility]ORATORYCLIA [id number] [place] [address] [place] [facility] RBC (Bld) [#/Vol] 3.32 10*6/uL Low 4.20-6.00 [facility] Comment on above: Order Comment: Speci men Type: BLOOD SPECIMENOrdering Facility: [facility] Address: [address] [place] [address] Performed By: #### 5 7021-8 ####[facility]ATORYCLIA [id number] [address] [facility] WBC (Bld) [#/Vol] 8.33 10*3/uL Normal 3.70-11.00 [facility] Comment on above: Order Comment: Speci men Type: BLOOD SPECIMENOrdering Facility: [facility] Address: [address] [place] [address] Performed By: #### 5 7021-8 ####[facility]ORATORYCLIA [id number] [address] [facility] CONSULT PROGon 08-17-2021 CONSULT PROG Normal [facility] NUTRITIONon 08-17-2021 NUTRITION Normal [facility] Basic metabolic 2000 panelon 08-16-2021 Anion gap [Moles/Vol] 14 mmol/L Normal 9-18 [facility] Comment on above: Order Comment: Speci men Type: BLOOD SPECIMENOrdering Facility: [facility] Address: [address] Performed By: #### 2 4321-2, ####[facility] LABORATORYCLIA [id number] [place] [address] [place] Calcium [Mass/Vol] 8.8 mg/dL Normal 8.5-10.2 [facility] Comment on above: Order Comment: Speci men Type: BLOOD SPECIMENOrdering Facility: [facility] Address: [address] [place] [address] Performed By: #### 2 4320-2, ####[facility] LABORATORYCLIA [id number] [place] [address] [place] Chloride [Moles/Vol] 97 mmol/L Normal 97-105 [facility] Comment on above: Order Comment: Speci men Type: BLOOD SPECIMENOrdering Facility: [facility] Address: [address] [place] [address] Performed By: #### 2 2, ####[facility]ATORYCLIA [id number] [place] [address] [place] CO2 [Moles/Vol] 27 mmol/L Normal 22-30 [facility] Comment on above: Order Comment: Speci men Type: BLOOD SPECIMENOrdering Facility: [facility] Address: [address] [address] Performed By: #### 2 2, ####[facility]ATORYCLIA [id number] [place] [address] [place] Creatinine [Mass/Vol] 0.50 mg/dL Low 0.73-1.22 [facility] Comment on above: Order Comment: Speci men Type: BLOOD SPECIMENOrdering Facility: [facility] Address: [address] [address] Performed By: #### 2 4320-2, ####[facility]ORATORYCLIA [id number] [place] [address] [place] ESTIMATED GLOMERULAR FILTRATION RATE 110 mL/min/1.73m??? Normal >=60 [facility] Comment on above: Order Comment: Shira feldman Type: BLOOD SPECIMENOrdering Facility: [facility] Address: [address] [place] [address] Result Comment: Luzmaria mated Glomerular Filtration Rate [...] actual GFR. Performed By: #### 2 4321-2, 15486-7 ####[facility]ORATORYCLIA [id number] [place] [address] [place] Glucose [Mass/Vol] 101 mg/dL High 74-99 [facility] Comment on above: Order Comment: Shira feldman Type: BLOOD SPECIMENOrdering Facility: [facility] Address: [address] [place] [address] Result Comment: The [place] [employer] (ADA) provides guidance for cutoff [...] Standards of Medical Care in Diabetes 2016, [place] [employer]. Diabetes Care. 2016.39(Suppl 1). Performed By: #### 2 4321-2, 35650-0 ####[facility]ORATORYCLIA [id number] [place] [address] [place] Potassium [Moles/Vol] 3.6 mmol/L Low 3.7-5.1 [facility] Comment on above: Order Comment: Speci men Type: BLOOD SPECIMENOrdering Facility: [facility] Address: [address] [place] [address] Performed By: #### 2 4321-2, 54760-1 ####[facility]ORATORYCLIA [id number] [address] [place] [facility] Sodium [Moles/Vol] 138 mmol/L Normal 136-144 [facility] Comment on above: Order Comment: Speci men Type: BLOOD SPECIMENOrdering Facility: [facility] Address: [address] [place] [address] Performed By: #### 2 4321-2, ####[facility]ORATORYCLIA [id number] [address] [place] Urea nitrogen [Mass/Vol] 11 mg/dL Normal 9-24 [facility] Comment on above: Order Comment: Speci men Type: BLOOD SPECIMENOrdering Facility: [facility] Address: [address] [place] [address] Performed By: #### 2 4321-2, ####[facility]ORATORYCLIA [id number] [address] [facility] CASE MANAGEMon 08-16-2021 CASE MANAGEM Normal [facility] CBC W Auto Differential pane l (Bld)on 08-16-2021 Basophils (Bld) [#/Vol] 0.03 10*3/uL Normal <0.11 [facility] Comment on above: Order Comment: Speci men Type: BLOOD SPECIMENOrdering Facility: [facility] Address: [address] [place] [address] Performed By: #### 5 7021-8 ####[facility]ORATORYCLIA [id number] [address] [place] Basophils/100 WBC (Bld) 0.4 % Normal [facility] Comment on above: Order Comment: Speci men Type: BLOOD SPECIMENOrdering Facility: [facility] Address: [address] [place] [address] Performed By: #### 5 7021-8 ####[facility]ORATORYCLIA [id number] [address] Differential cell count method Nom (Bld) Auto Normal [facility] Comment on above: Order Comment: Speci men Type: BLOOD SPECIMENOrdering Facility: [facility] Address: [address] [place] [address] Performed By: #### 5 7021-8 ####[facility]ATORYCLIA [id number] [address] Eosinophils (Bld) [#/Vol] 0.19 10*3/uL Normal <0.46 [facility] Comment on above: Order Comment: Speci men Type: BLOOD SPECIMENOrdering Facility: [facility] Address: [address] [place] [address] Performed By: #### 5 7021-8 ####[facility]ATORYCLIA [id number] [address] Eosinophils/100 WBC (Bld) 2.5 % Normal [facility] Comment on above: Order Comment: Speci men Type: BLOOD SPECIMENOrdering Facility: [facility] Address: [address] [place] [address] Performed By: #### 5 7021-8 ####[facility]ATORYCLIA [id number] [address] Erythrocyte distribution width (RBC) [Ratio] 17.1 % High 11.5-15.0 [facility] Comment on above: Order Comment: Speci men Type: BLOOD SPECIMENOrdering Facility: [facility] Address: [address] [place] [address] Performed By: #### 5 7021-8 ####[facility]ATORYCLIA [id number] [address] Hematocrit (Bld) [Volume fraction] 29.2 % Low 39.0-51.0 [facility] Comment on above: Order Comment: Speci men Type: BLOOD SPECIMENOrdering Facility: [facility] Address: [address] [place] [address] Performed By: #### 5 7021-8 ####[facility]ATORYCLIA [id number] [address] [place] [facility] Hemoglobin (Bld) [Mass/Vol] 9.0 g/dL Low 13.0-17.0 [facility] Comment on above: Order Comment: Speci men Type: BLOOD SPECIMENOrdering Facility: [facility] Address: [address] [place] [address] Performed By: #### 5 7021-8 ####[facility]ATORYCLIA [id number] [address] IMMATURE GRAN % 0.3 % Normal [facility] Comment on above: Order Comment: Speci men Type: BLOOD SPECIMENOrdering Facility: [facility] Address: [address] [place] [address] Performed By: #### 5 7021-8 ####[facility]ATORYCLIA [id number] [address] IMMATURE GRAN ABS <0.03 Normal <0.10 [facility] Comment on above: Order Comment: Speci men Type: BLOOD SPECIMENOrdering Facility: [facility] Address: [address] [place] [address] Performed By: #### 5 7021-8 ####[facility]ATORYCLIA [id number] [address] [place] Lymphocytes (Bld) [#/Vol] 1.41 10*3/uL Normal 1.00-4.00 [facility] Comment on above: Order Comment: Speci men Type: BLOOD SPECIMENOrdering Facility: [facility] Address: [address] [place] [address] Performed By: #### 5 7021-8 ####[facility]ATORYCLIA [id number] [address] Lymphocytes/100 WBC (Bld) 18.4 % Normal [facility] Comment on above: Order Comment: Speci men Type: BLOOD SPECIMENOrdering Facility: [facility] Address: [address] [place] [address] Performed By: #### 5 7021-8 ####[facility]ATORYCLIA [id number] [address] MCH (RBC) [Entitic mass] 28.0 pg Normal 26.0-34.0 [facility] Comment on above: Order Comment: Speci men Type: BLOOD SPECIMENOrdering Facility: [facility] Address: [address] [place] [address] Performed By: #### 5 7021-8 ####[facility]ORATORYCLIA [id number] [address] STATES [facility] MCHC (RBC) [Mass/Vol] 30.8 g/dL Normal 30.5-36.0 [facility] Comment on above: Order Comment: Speci men Type: BLOOD SPECIMENOrdering Facility: [facility] Address: [address] [place] [address] Performed By: #### 5 7021-8 ####[facility]ATORYCLIA [id number] [address] MCV (RBC) [Entitic vol] 91.0 fL Normal 80.0-100.0 [facility] Comment on above: Order Comment: Speci men Type: BLOOD SPECIMENOrdering Facility: [facility] Address: [address] [place] [address] Performed By: #### 5 7021-8 ####[facility]ATORYCLIA [id number] [address] Monocytes (Bld) [#/Vol] 0.47 10*3/uL Normal <0.87 [facility] Comment on above: Order Comment: Speci men Type: BLOOD SPECIMENOrdering Facility: [facility] Address: [address] [place] [address] Performed By: #### 5 7021-8 ####[facility]ORATORYCLIA [id number] [place] [address] [place] Monocytes/100 WBC (Bld) 6.1 % Normal [facility] Comment on above: Order Comment: Speci men Type: BLOOD SPECIMENOrdering Facility: [facility] Address: [address] [place] [address] Performed By: #### 5 7021-8 ####[facility]ORATORYCLIA [id number] [place] [address] [place] Neutrophils (Bld) [#/Vol] 5.55 10*3/uL Normal 1.45-7.50 [facility] Comment on above: Order Comment: Speci men Type: BLOOD SPECIMENOrdering Facility: [facility] Address: [address] [place] [address] Performed By: #### 5 7021-8 ####[facility]ORATORYCLIA [id number] [address] [place] Neutrophils/100 WBC (Bld) 72.3 % Normal [facility] Comment on above: Order Comment: Speci men Type: BLOOD SPECIMENOrdering Facility: [facility] Address: [address] [place] [address] Performed By: #### 5 7021-8 ####[facility]ATORYCLIA [id number] [place] [address] [place] Nucleated RBC (Bld) [#/Vol] 10*3/uL Normal <0.01 [facility] Comment on above: Order Comment: Speci men Type: BLOOD SPECIMENOrdering Facility: [facility] Address: [address] [place] [address] Performed By: #### 5 7021-8 ####[facility]ORATORYCLIA [id number] [place] [address] [place] Nucleated RBC/100 WBC (Bld) [Ratio] 0.0 /100 WBC Normal [facility] Comment on above: Order Comment: Speci men Type: BLOOD SPECIMENOrdering Facility: [facility] Address: [address] [place] [address] Performed By: #### 5 7021-8 ####[facility]ORATORYCLIA [id number] [address] Platelet mean volume (Bld) [Entitic vol] 9.3 fL Normal 9.0-12.7 [facility] Comment on above: Order Comment: Speci men Type: BLOOD SPECIMENOrdering Facility: [facility] Address: [address] [place] [address] Performed By: #### 5 7021-8 ####[facility]ATORYCLIA [id number] [address] [place] Platelets (Bld) [#/Vol] 319 10*3/uL Normal 150-400 [facility] Comment on above: Order Comment: Speci men Type: BLOOD SPECIMENOrdering Facility: [facility] Address: [address] [place] [address] Performed By: #### 5 7021-8 ####[facility]ORATORYCLIA [id number] [address] [place] RBC (Bld) [#/Vol] 3.21 10*6/uL Low 4.20-6.00 [facility] Comment on above: Order Comment: Speci men Type: BLOOD SPECIMENOrdering Facility: [facility] Address: [address] [place] [address] Performed By: #### 5 7021-8 ####[facility]ORATORYCLIA [id number] [place] [address] [place] WBC (Bld) [#/Vol] 7.67 10*3/uL Normal 3.70-11.00 [facility] Comment on above: Order Comment: Speci men Type: BLOOD SPECIMENOrdering Facility: [facility] Address: [address] [place] [address] Performed By: #### 5 7021-8 ####[facility]ORATORYCLIA [id number] [place] [address] [place] Basophils (Bld) [#/Vol] 0.04 10*3/uL Normal <0.11 [facility] Comment on above: Order Comment: Speci men Type: BLOOD SPECIMENOrdering Facility: [facility] Address: [address] [place] [address] Performed By: #### 5 7021-8 ####[facility]ORATORYCLIA [id number] [address] [place] Basophils/100 WBC (Bld) 0.5 % Normal [facility] Comment on above: Order Comment: Speci men Type: BLOOD SPECIMENOrdering Facility: [facility] Address: [address] [place] [address] Performed By: #### 5 7021-8 ####[facility]ORATORYCLIA [id number] [address] Differential cell count method Nom (Bld) Auto Normal [facility] Comment on above: Order Comment: Speci men Type: BLOOD SPECIMENOrdering Facility: [facility] Address: [address] [place] [address] Performed By: #### 5 7021-8 ####[facility]ATORYCLIA [id number] [address] [facility] Eosinophils (Bld) [#/Vol] 0.19 10*3/uL Normal <0.46 [facility] Comment on above: Order Comment: Speci men Type: BLOOD SPECIMENOrdering Facility: [facility] Address: [address] [place] [address] Performed By: #### 5 7021-8 ####[facility]ORATORYCLIA [id number] [address] [place] Eosinophils/100 WBC (Bld) 2.5 % Normal [facility] Comment on above: Order Comment: Speci men Type: BLOOD SPECIMENOrdering Facility: [facility] Address: [address] [place] [address] Performed By: #### 5 7021-8 ####[facility]ORATORYCLIA [id number] [address] [place] Erythrocyte distribution width (RBC) [Ratio] 17.2 % High 11.5-15.0 [facility] Comment on above: Order Comment: Speci men Type: BLOOD SPECIMENOrdering Facility: [facility] Address: [address] [place] [address] Performed By: #### 5 7021-8 ####[facility]ORATORYCLIA [id number] [address] [facility] Hematocrit (Bld) [Volume fraction] 29.5 % Low 39.0-51.0 [facility] Comment on above: Order Comment: Speci men Type: BLOOD SPECIMENOrdering Facility: [facility] Address: [address] [place] [address] Performed By: #### 5 7021-8 ####[facility]ORATORYCLIA [id number] [address] Hemoglobin (Bld) [Mass/Vol] 9.2 g/dL Low 13.0-17.0 [facility] Comment on above: Order Comment: Speci men Type: BLOOD SPECIMENOrdering Facility: [facility] Address: [address] [place] [address] Performed By: #### 5 7021-8 ####[facility]ORATORYCLIA [id number] [address] IMMATURE GRAN % 0.4 % Normal [facility] Comment on above: Order Comment: Speci men Type: BLOOD SPECIMENOrdering Facility: [facility] Address: [address] [place] [address] Performed By: #### 5 7021-8 ####[facility]ORATORYCLIA [id number] [address] IMMATURE GRAN ABS 0.03 k/uL Normal <0.10 [facility] Comment on above: Order Comment: Speci men Type: BLOOD SPECIMENOrdering Facility: [facility] Address: [address] [place] [address] Performed By: #### 5 7021-8 ####[facility]ORATORYCLIA [id number] [address] [place] Lymphocytes (Bld) [#/Vol] 1.50 10*3/uL Normal 1.00-4.00 [facility] Comment on above: Order Comment: Speci men Type: BLOOD SPECIMENOrdering Facility: [facility] Address: [address] [place] [address] Performed By: #### 5 7021-8 ####[facility]ORATORYCLIA [id number] [address] Lymphocytes/100 WBC (Bld) 19.7 % Normal [facility] Comment on above: Order Comment: Speci men Type: BLOOD SPECIMENOrdering Facility: [facility] Address: [address] [place] [address] Performed By: #### 5 7021-8 ####[facility]ORATORYCLIA [id number] [address] STATES [facility] MCH (RBC) [Entitic mass] 28.3 pg Normal 26.0-34.0 [facility] Comment on above: Order Comment: Speci men Type: BLOOD SPECIMENOrdering Facility: [facility] Address: [address] [place] [address] Performed By: #### 5 7021-8 ####[facility]ORATORYCLIA [id number] [address] [place] MCHC (RBC) [Mass/Vol] 31.2 g/dL Normal 30.5-36.0 [facility] Comment on above: Order Comment: Speci men Type: BLOOD SPECIMENOrdering Facility: [facility] Address: [address] [place] [address] Performed By: #### 5 7021-8 ####[facility]ORATORYCLIA [id number] [address] [place] MCV (RBC) [Entitic vol] 90.8 fL Normal 80.0-100.0 [facility] Comment on above: Order Comment: Speci men Type: BLOOD SPECIMENOrdering Facility: [facility] Address: [address] [place] [address] Performed By: #### 5 7021-8 ####[facility] LABORATORYCLIA [id number] [address] [place] Monocytes (Bld) [#/Vol] 0.49 10*3/uL Normal <0.87 [facility] Comment on above: Order Comment: Speci men Type: BLOOD SPECIMENOrdering Facility: [facility] Address: [address] [place] [address] Performed By: #### 5 7021-8 ####[facility]ORATORYCLIA [id number] [address] [place] Monocytes/100 WBC (Bld) 6.4 % Normal [facility] Comment on above: Order Comment: Speci men Type: BLOOD SPECIMENOrdering Facility: [facility] Address: [address] [place] [address] Performed By: #### 5 7021-8 ####[facility]ORATORYCLIA [id number] [address] [place] Neutrophils (Bld) [#/Vol] 5.38 10*3/uL Normal 1.45-7.50 [facility] Comment on above: Order Comment: Speci men Type: BLOOD SPECIMENOrdering Facility: [facility] Address: [address] [place] [address] Performed By: #### 5 7021-8 ####[facility]ORATORYCLIA [id number] [address] [place] Neutrophils/100 WBC (Bld) 70.5 % Normal [facility] Comment on above: Order Comment: Speci men Type: BLOOD SPECIMENOrdering Facility: [facility] Address: [address] [place] [address] Performed By: #### 5 7021-8 ####[facility] LABORATORYCLIA [id number] [place] [address] [place] Nucleated RBC (Bld) [#/Vol] 10*3/uL Normal <0.01 [facility] Comment on above: Order Comment: Speci men Type: BLOOD SPECIMENOrdering Facility: [facility] Address: [address] [place] [address] Performed By: #### 5 7021-8 ####[facility] LABORATORYCLIA [id number] [address] [place] Nucleated RBC/100 WBC (Bld) [Ratio] 0.0 /100 WBC Normal [facility] Comment on above: Order Comment: Speci men Type: BLOOD SPECIMENOrdering Facility: [facility] Address: [address] [place] [address] Performed By: #### 5 7021-8 ####[facility] LABORATORYCLIA [id number] [place] [address] [place] Platelet mean volume (Bld) [Entitic vol] 9.0 fL Normal 9.0-12.7 [facility] Comment on above: Order Comment: Speci men Type: BLOOD SPECIMENOrdering Facility: [facility] Address: [address] [place], [place] [address] Performed By: #### 5 7021-8 ####[facility]ORATORYCLIA [id number] [address] [place] Platelets (Bld) [#/Vol] 316 10*3/uL Normal 150-400 [facility] Comment on above: Order Comment: Speci men Type: BLOOD SPECIMENOrdering Facility: [facility] Address: [address] [place], [place] [address] Performed By: #### 5 7021-8 ####[facility]ATORYCLIA [id number] [address] [place] RBC (Bld) [#/Vol] 3.25 10*6/uL Low 4.20-6.00 [facility] Comment on above: Order Comment: Speci men Type: BLOOD SPECIMENOrdering Facility: [facility] Address: [address] [place], [place] [address] Performed By: #### 5 7021-8 ####[facility] LABORATORYCLIA [id number] [address] [place] OF [facility] WBC (Bld) [#/Vol] 7.63 10*3/uL Normal 3.70-11.00 [facility] Comment on above: Order Comment: Speci men Type: BLOOD SPECIMENOrdering Facility: [facility] Address: [address] [place] [address] Performed By: #### 5 7021-8 ####[facility] LABORATORYCLIA [id number] [address] [place] [facility] Basophils (Bld) [#/Vol] Normal <0.11 [facility] Comment on above: Order Comment: Speci men Type: BLOOD SPECIMENOrdering Facility: [facility] Address: [address] [place] [address] Result Comment: Carolina Owens RN informed lab after results autoverified that she rd on the wrong patient. Lab to credit. Nurse to redraw on correct patient.Corrected result: Previously reported as 0.04 k/uL on 08/16/2021 at 4:44 AM EDT. Performed By: #### 5 7021-8 ####[facility]ATORYCLIA [id number] [address] Basophils/100 WBC (Bld) Normal [facility] Comment on above: Order Comment: Speci men Type: BLOOD SPECIMENOrdering Facility: [facility] Address: [address] [place] [address] Result Comment: Tati ected result: Previously reported as 0.4 % on 08/16/2021 at 4:44 AM EDT. Performed By: #### 5 7021-8 ####[facility]ORATORYCLIA [id number] [address] [place] [facility] CBC W Differential panel, method unspecified (Bld) Normal [facility] Comment on above: Order Comment: Speci men Type: BLOOD SPECIMENOrdering Facility: [facility] Address: [address] [place] [address] Result Comment: Carolina Owens RN informed lab after results autoverified that she rd on the wrong patient. Lab to credit. Nurse to redraw on correct patient. Performed By: #### 5 7021-8 ####[facility]ATORYCLIA [id number] [address] [place] Differential cell count method Nom (Bld) Normal [facility] Comment on above: Order Comment: Speci men Type: BLOOD SPECIMENOrdering Facility: [facility] Address: [address] [place] [address] Result Comment: Carolina Owens RN informed lab after results autoverified that she rd on the wrong patient. Lab to credit. Nurse to redraw on correct patient.Corrected result: Previously reported as Auto on 08/16/2021 at 4:44 AM EDT. Performed By: #### 5 7021-8 ####[facility]ATORYCLIA [id number] [address] [place] Eosinophils (Bld) [#/Vol] Normal <0.46 [facility] Comment on above: Order Comment: Speci men Type: BLOOD SPECIMENOrdering Facility: [facility] Address: [address] [place] [address] Result Comment: Carolina Owens RN informed lab after results autoverified that she rd on the wrong patient. Lab to credit. Nurse to redraw on correct patient.Corrected result: Previously reported as 0.07 k/uL on 08/16/2021 at 4:44 AM EDT. Performed By: #### 5 7021-8 ####[facility]ATORYCLIA [id number] [address] [place] Eosinophils/100 WBC (Bld) Normal [facility] Comment on above: Order Comment: Speci men Type: BLOOD SPECIMENOrdering Facility: [facility] Address: [address] [place] [address] Result Comment: Carolina Owens RN informed lab after results autoverified that she rd on the wrong patient. Lab to credit. Nurse to redraw on correct patient.Corrected result: Previously reported as 0.7 % on 08/16/2021 at 4:44 AM EDT. Performed By: #### 5 7021-8 ####[facility]ORATORYCLIA [id number] [address] Erythrocyte distribution width (RBC) [Ratio] Normal 11.5-15.0 [facility] Comment on above: Order Comment: Speci men Type: BLOOD SPECIMENOrdering Facility: [facility] Address: [address] [place] [address] Result Comment: Carolina Owens RN informed lab after results autoverified that she rd on the wrong patient. Lab to credit. Nurse to redraw on correct patient.Corrected result: Previously reported as 14.2 % on 08/16/2021 at 4:44 AM EDT. Performed By: #### 5 7021-8 ####[facility]ATORYCLIA [id number] [address] Hematocrit (Bld) [Volume fraction] Normal 39.0-51.0 [facility] Comment on above: Order Comment: Speci [facility] Type: BLOOD SPECIMENOrdering Facility: [facility] Address: [address] [place] [address] Result Comment: Carolina Owens RN informed lab after results autoverified that she rd on the wrong patient. Lab to credit. Nurse to redraw on correct patient.Corrected result: Previously reported as 34.3 % on 08/16/2021 at 4:44 AM EDT. Performed By: #### 5 7021-8 ####[facility]ORATORYCLIA [id number] [address] [place] [facility] Hemoglobin (Bld) [Mass/Vol] Normal 13.0-17.0 [facility] Comment on above: Order Comment: Speci men Type: BLOOD SPECIMENOrdering Facility: [facility] Address: [address] [place] [address] Result Comment: Carolina Owens RN informed lab after results autoverified that she rd on the wrong patient. Lab to credit. Nurse to redraw on correct patient.Corrected result: Previously reported as 11.2 g/dL on 08/16/2021 at 4:44 AM EDT. Performed By: #### 5 7021-8 ####[facility]ORATORYCLIA [id number] [address] IMMATURE GRAN % Normal [facility] Comment on above: Order Comment: Speci men Type: BLOOD SPECIMENOrdering Facility: [facility] Address: [address] [place] [address] Result Comment: Carolina Owens RN informed lab after results autoverified that she rd on the wrong patient. Lab to credit. Nurse to redraw on correct patient.Corrected result: Previously reported as 0.8 % on 08/16/2021 at 4:44 AM EDT. Performed By: #### 5 7021-8 ####[facility]ATORYCLIA [id number] [address] IMMATURE GRAN ABS Normal <0.10 [facility] Comment on above: Order Comment: Speci men Type: BLOOD SPECIMENOrdering Facility: [facility] Address: [address] [place] [address] Result Comment: Tati ected result: Previously reported as 0.08 k/uL on 08/16/2021 at 4:44 AM EDT. Performed By: #### 5 7021-8 ####[facility]ATORYCLIA [id number] [address] [place] Lymphocytes (Bld) [#/Vol] Normal 1.00-4.00 [facility] Comment on above: Order Comment: Speci [facility] Type: BLOOD SPECIMENOrdering Facility: [facility] Address: [address] [place] [address] Result Comment: Carolina Owens RN informed lab after results autoverified that she rd on the wrong patient. Lab to credit. Nurse to redraw on correct patient.Corrected result: Previously reported as 1.17 k/uL on 08/16/2021 at 4:44 AM EDT. Performed By: #### 5 7021-8 ####[facility]ORATORYCLIA [id number] [address] Lymphocytes/100 WBC (Bld) Normal [facility] Comment on above: Order Comment: Speci men Type: BLOOD SPECIMENOrdering Facility: [facility] Address: [address] [place] [address] Result Comment: Carolina Owens RN informed lab after results autoverified that she rd on the wrong patient. Lab to credit. Nurse to redraw on correct patient.Corrected result: Previously reported as 12.0 % on 08/16/2021 at 4:44 AM EDT. Performed By: #### 5 7021-8 ####[facility]ATORYCLIA [id number] [address] MCHC (RBC) [Mass/Vol] Normal 30.5-36.0 [facility] Comment on above: Order Comment: Speci men Type: BLOOD SPECIMENOrdering Facility: [facility] Address: [address] [place] [address] Result Comment: Carolina Owens RN informed lab after results autoverified that she rd on the wrong patient. Lab to credit. Nurse to redraw on correct patient.Corrected result: Previously reported as 32.7 g/dL on 08/16/2021 at 4:44 AM EDT. Performed By: #### 5 7021-8 ####[facility]ATORYCLIA [id number] [address] MCV (RBC) [Entitic vol] Normal 80.0-100.0 [facility] Comment on above: Order Comment: Speci men Type: BLOOD SPECIMENOrdering Facility: [facility] Address: [address] [place] [address] Result Comment: Carolina Owens RN informed lab after results autoverified that she rd on the wrong patient. Lab to credit. Nurse to redraw on correct patient.Corrected result: Previously reported as 94.2 fL on 08/16/2021 at 4:44 AM EDT. Performed By: #### 5 7021-8 ####[facility]ORATORYCLIA [id number] [place] [address] [place] Monocytes (Bld) [#/Vol] Normal <0.87 [facility] Comment on above: Order Comment: Speci men Type: BLOOD SPECIMENOrdering Facility: [facility] Address: [address] [place] [address] Result Comment: Carolina Owens RN informed lab after results autoverified that she rd on the wrong patient. Lab to credit. Nurse to redraw on correct patient.Corrected result: Previously reported as 0.99 k/uL on 08/16/2021 at 4:44 AM EDT. Performed By: #### 5 7021-8 ####[facility]ORATORYCLIA [id number] [address] Monocytes/100 WBC (Bld) Normal [facility] Comment on above: Order Comment: Speci men Type: BLOOD SPECIMENOrdering Facility: [facility] Address: [address] [place] [address] Result Comment: Carolina Owens RN informed lab after results autoverified that she rd on the wrong patient. Lab to credit. Nurse to redraw on correct patient.Corrected result: Previously reported as 10.2 % on 08/16/2021 at 4:44 AM EDT. Performed By: #### 5 7021-8 ####[facility]ATORYCLIA [id number] [place] [address] [place] Neutrophils (Bld) [#/Vol] Normal 1.45-7.50 [facility] Comment on above: Order Comment: Speci men Type: BLOOD SPECIMENOrdering Facility: [facility] Address: [address] [place] [address] Result Comment: Carolina Owens RN informed lab after results autoverified that she rd on the wrong patient. Lab to credit. Nurse to redraw on correct patient.Corrected result: Previously reported as 7.40 k/uL on 08/16/2021 at 4:44 AM EDT. Performed By: #### 5 7021-8 ####[facility]ORATORYCLIA [id number] [address] [place] Neutrophils/100 WBC (Bld) Normal [facility] Comment on above: Order Comment: Speci men Type: BLOOD SPECIMENOrdering Facility: [facility] Address: [address] [place] [address] Result Comment: Carolina Owens RN informed lab after results autoverified that she rd on the wrong patient. Lab to credit. Nurse to redraw on correct patient.Corrected result: Previously reported as 75.9 % on 08/16/2021 at 4:44 AM EDT. Performed By: #### 5 7021-8 ####[facility]ATORYCLIA [id number] [address] [place] Platelet mean volume (Bld) [Entitic vol] Normal 9.0-12.7 [facility] Comment on above: Order Comment: Speci men Type: BLOOD SPECIMENOrdering Facility: [facility] Address: [address] [place] [address] Result Comment: Carolina Owens RN informed lab after results autoverified that she rd on the wrong patient. Lab to credit. Nurse to redraw on correct patient.Corrected result: Previously reported as 9.1 fL on 08/16/2021 at 4:44 AM EDT. Performed By: #### 5 7021-8 ####[facility]ATORYCLIA [id number] [address] [place] Platelets (Bld) [#/Vol] Normal 150-400 [facility] Comment on above: Order Comment: Speci men Type: BLOOD SPECIMENOrdering Facility: [facility] Address: [address] [place] [address] Result Comment: Carolina Owens RN informed lab after results autoverified that she rd on the wrong patient. Lab to credit. Nurse to redraw on correct patient.Corrected result: Previously reported as 338 k/uL on 08/16/2021 at 4:44 AM EDT. Performed By: #### 5 7021-8 ####[facility]ATORYCLIA [id number] RBC (Bld) [#/Vol] Normal 4.20-6.00 [facility] Comment on above: Order Comment: Speci men Type: BLOOD SPECIMENOrdering Facility: [facility] Address: [address] [place] [address] Result Comment: Carolina Owens RN informed lab after results autoverified that she dr on the wrong patient. Lab to credit. Nurse to redraw on correct patient.Corrected result: Previously reported as 3.64 m/uL on 08/16/2021 at 4:44 AM EDT. Performed By: #### 5 7021-8 ####[facility]ATORYCLIA [id number] [address] WBC (Bld) [#/Vol] Normal 3.70-11.00 [facility] Comment on above: Order Comment: Speci francia Type: BLOOD SPECIMENOrdering Facility: [facility] Address: [address] [place] [address] Result Comment: Carolina Owens RN informed lab after results autoverified that she rd on the wrong patient. Lab to credit. Nurse to redraw on correct patient.Corrected result: Previously reported as 9.75 k/uL on 08/16/2021 at 4:44 AM EDT. Performed By: #### 5 7021-8 ####[facility]ORATORYCLIA [id number] [address] CONSULT PROGon 08-16-2021 CONSULT PROG Normal [facility] Magnesium SerPl-mCncon 08-16 Magnesium [Mass/Vol] 1.8 mg/dL Normal 1.7-2.3 [facility] Comment on above: Order Comment: Speci francia Type: BLOOD SPECIMENOrdering Facility: [facility] Address: [address] [place] [address] Performed By: #### 2 4321-2, 86349-8 ####[facility]ORATORYCLIA [id number] [address] NURSING PROGon 08-16-2021 NURSING PROG Normal [facility] Basic metabolic 2000 panelon 08-15-2021 Anion gap [Moles/Vol] 13 mmol/L Normal 9-18 [facility] Comment on above: Order Comment: Speci men Type: BLOOD SPECIMENOrdering Facility: [facility] Address: [address] [place] [address] Performed By: #### 2 4321-2 ####[facility]ORATORYCLIA [id number] [place] [address] [place] Calcium [Mass/Vol] 9.0 mg/dL Normal 8.5-10.2 [facility] Comment on above: Order Comment: Speci men Type: BLOOD SPECIMENOrdering Facility: [facility] Address: [address] [place] [address] Performed By: #### 2 4321-2 ####[facility]ORATORYCLIA [id number] [place] [address] [place] Chloride [Moles/Vol] 95 mmol/L Low 97-105 [facility] Comment on above: Order Comment: Speci men Type: BLOOD SPECIMENOrdering Facility: [facility] Address: [address] [place] [address] Performed By: #### 2 4321-2 ####[facility]ATORYCLIA [id number] [place] [address] [place] CO2 [Moles/Vol] 28 mmol/L Normal 22-30 [facility] Comment on above: Order Comment: Speci men Type: BLOOD SPECIMENOrdering Facility: [facility] Address: [address] [place] [address] Performed By: #### 2 4321-2 ####[facility]ATORYCLIA [id number] [place] [address] [place] Creatinine [Mass/Vol] 0.50 mg/dL Low 0.73-1.22 [facility] Comment on above: Order Comment: Speci men Type: BLOOD SPECIMENOrdering Facility: [facility] Address: [address] [place] [address] Performed By: #### 2 4321-2 ####[facility] H[facility]PITALCLIA [id number] [address] [place] ESTIMATED GLOMERULAR FILTRATION RATE 110 mL/min/1.73m??? Normal >=60 [facility] Comment on above: Order Comment: Johncara feldman Type: BLOOD SPECIMENOrdering Facility: [facility] Address: [address] [place] [address] Result Comment: Luzmaria mated Glomerular Filtration Rate [...] By: #### 2 4321-2 ####[facility] HOSPITALIA [id number] [place] [address] [place] Glucose [Mass/Vol] 106 mg/dL High 74-99 [facility] Comment on above: Order Comment: Shira feldman Type: BLOOD SPECIMENOrdering Facility: [facility] Address: [address] [place] [address] Result Comment: The [place] [employer] (ADA) provides guidance for cutoff [...] Standards of Medical Care in Diabetes 2016, [place] [employer]. Diabetes Care. 2016.39(Suppl 1). Performed By: #### 2 4321-2 ####[facility]ORATORYCLIA [id number] [place] [address] [place] Potassium [Moles/Vol] 3.3 mmol/L Low 3.7-5.1 [facility] Comment on above: Order Comment: Speci men Type: BLOOD SPECIMENOrdering Facility: [facility] Address: [address] [place] [address] Performed By: #### 2 4321-2 ####[facility]ATORYCLIA [id number] [place] [address] [place] Sodium [Moles/Vol] 136 mmol/L Normal 136-144 [facility] Comment on above: Order Comment: Speci men Type: BLOOD SPECIMENOrdering Facility: [facility] Address: [address] [place] [address] Performed By: #### 2 4321-2 ####[facility]ATORYCLIA [id number] [place] [address] [place] Urea nitrogen [Mass/Vol] 11 mg/dL Normal 9-24 [facility] Comment on above: Order Comment: Speci men Type: BLOOD SPECIMENOrdering Facility: [facility] Address: [address] [place] [address] Performed By: #### 2 4321-2 ####[facility]ATORYCLIA [id number] [place] [address] [place] CASE MANAGEMon 08-15-2021 CASE MANAGEM Normal [facility] CBC W Auto Differential pane l (Bld)on 08-15-2021 Basophils (Bld) [#/Vol] 0.03 10*3/uL Normal <0.11 [facility] Comment on above: Order Comment: Speci men Type: BLOOD SPECIMENOrdering Facility: [facility] Address: [address] [place] [address] Performed By: #### 5 7021-8 ####[facility]ATORYCLIA [id number] [address] [place] Basophils/100 WBC (Bld) 0.4 % Normal [facility] Comment on above: Order Comment: Speci men Type: BLOOD SPECIMENOrdering Facility: [facility] Address: [address] [place] [address] Performed By: #### 5 7021-8 ####[facility]ORATORYCLIA [id number] [address] Differential cell count method Nom (Bld) Auto Normal [facility] Comment on above: Order Comment: Speci men Type: BLOOD SPECIMENOrdering Facility: [facility] Address: [address] [place] [address] Performed By: #### 5 7021-8 ####[facility]ATORYCLIA [id number] [address] [place] Eosinophils (Bld) [#/Vol] 0.20 10*3/uL Normal <0.46 [facility] Comment on above: Order Comment: Speci men Type: BLOOD SPECIMENOrdering Facility: [facility] Address: [address] [place] [address] Performed By: #### 5 7021-8 ####[facility]ATORYCLIA [id number] [address] Eosinophils/100 WBC (Bld) 2.5 % Normal [facility] Comment on above: Order Comment: Speci men Type: BLOOD SPECIMENOrdering Facility: [facility] Address: [address] [place] [address] Performed By: #### 5 7021-8 ####[facility]ORATORYCLIA [id number] [address] [place] Erythrocyte distribution width (RBC) [Ratio] 16.7 % High 11.5-15.0 [facility] Comment on above: Order Comment: Speci men Type: BLOOD SPECIMENOrdering Facility: [facility] Address: [address] [place] [address] Performed By: #### 5 7021-8 ####[facility]ORATORYCLIA [id number] [address] [place] Hematocrit (Bld) [Volume fraction] 30.3 % Low 39.0-51.0 [facility] Comment on above: Order Comment: Speci men Type: BLOOD SPECIMENOrdering Facility: [facility] Address: [address] [place] [address] Performed By: #### 5 7021-8 ####[facility] LABORATORYCLIA [id number] [address] [place] Hemoglobin (Bld) [Mass/Vol] 9.4 g/dL Low 13.0-17.0 [facility] Comment on above: Order Comment: Speci men Type: BLOOD SPECIMENOrdering Facility: [facility] Address: [address] [place] [address] Performed By: #### 5 7021-8 ####[facility]ORATORYCLIA [id number] [address] IMMATURE GRAN % 0.4 % Normal [facility] Comment on above: Order Comment: Speci men Type: BLOOD SPECIMENOrdering Facility: [facility] Address: [address] [place] [address] Performed By: #### 5 7021-8 ####[facility]ORATORYCLIA [id number] [address] IMMATURE GRAN ABS 0.03 k/uL Normal <0.10 [facility] Comment on above: Order Comment: Speci men Type: BLOOD SPECIMENOrdering Facility: [facility] Address: [address] [place] [address] Performed By: #### 5 7021-8 ####[facility]ORATORYCLIA [id number] [address] [place] Lymphocytes (Bld) [#/Vol] 1.50 10*3/uL Normal 1.00-4.00 [facility] Comment on above: Order Comment: Speci men Type: BLOOD SPECIMENOrdering Facility: [facility] Address: [address] [place] [address] Performed By: #### 5 7021-8 ####[facility]ATORYCLIA [id number] [address] Lymphocytes/100 WBC (Bld) 18.5 % Normal [facility] Comment on above: Order Comment: Speci men Type: BLOOD SPECIMENOrdering Facility: [facility] Address: [address] [place] [address] Performed By: #### 5 7021-8 ####[facility]ORATORYCLIA [id number] [address] [place] [facility] MCH (RBC) [Entitic mass] 29.0 pg Normal 26.0-34.0 [facility] Comment on above: Order Comment: Speci men Type: BLOOD SPECIMENOrdering Facility: [facility] Address: [address] [place] [address] Performed By: #### 5 7021-8 ####[facility] LABORATORYCLIA [id number] [address] [place] MCHC (RBC) [Mass/Vol] 31.0 g/dL Normal 30.5-36.0 [facility] Comment on above: Order Comment: Speci men Type: BLOOD SPECIMENOrdering Facility: [facility] Address: [address] [place] [address] Performed By: #### 5 7021-8 ####[facility]ORATORYCLIA [id number] [address] MCV (RBC) [Entitic vol] 93.5 fL Normal 80.0-100.0 [facility] Comment on above: Order Comment: Speci men Type: BLOOD SPECIMENOrdering Facility: [facility] Address: [address] [place] [address] Performed By: #### 5 7021-8 ####[facility]ORATORYCLIA [id number] [address] Monocytes (Bld) [#/Vol] 0.47 10*3/uL Normal <0.87 [facility] Comment on above: Order Comment: Speci men Type: BLOOD SPECIMENOrdering Facility: [facility] Address: [address] [place] [address] Performed By: #### 5 7021-8 ####[facility]ORATORYCLIA [id number] [address] [place] Monocytes/100 WBC (Bld) 5.8 % Normal [facility] Comment on above: Order Comment: Speci men Type: BLOOD SPECIMENOrdering Facility: [facility] Address: [address] [place] [address] Performed By: #### 5 7021-8 ####[facility]ORYCLIA [id number] [address] [place] Neutrophils (Bld) [#/Vol] 5.87 10*3/uL Normal 1.45-7.50 [facility] Comment on above: Order Comment: Speci men Type: BLOOD SPECIMENOrdering Facility: [facility] Address: [address] [place] [address] Performed By: #### 5 7021-8 ####[facility]ATORYCLIA [id number] [address] Neutrophils/100 WBC (Bld) 72.4 % Normal [facility] Comment on above: Order Comment: Speci men Type: BLOOD SPECIMENOrdering Facility: [facility] Address: [address] [place] [address] Performed By: #### 5 7021-8 ####[facility]ATORYCLIA [id number] [address] [place] Nucleated RBC (Bld) [#/Vol] 10*3/uL Normal <0.01 [facility] Comment on above: Order Comment: Speci men Type: BLOOD SPECIMENOrdering Facility: [facility] Address: [address] [place] [address] Performed By: #### 5 7021-8 ####[facility]ATORYCLIA [id number] [address] [place] Nucleated RBC/100 WBC (Bld) [Ratio] 0.0 /100 WBC Normal [facility] Comment on above: Order Comment: Speci men Type: BLOOD SPECIMENOrdering Facility: [facility] Address: [address] Performed By: #### 5 7021-8 ####[facility]ORATORYCLIA [id number] [address] STATES [facility] Platelet mean volume (Bld) [Entitic vol] 9.4 fL Normal 9.0-12.7 [facility] Comment on above: Order Comment: Speci men Type: BLOOD SPECIMENOrdering Facility: [facility] Address: [address] [place] [address] Performed By: #### 5 7021-8 ####[facility]ORATORYCLIA [id number] [address] [place] Platelets (Bld) [#/Vol] 290 10*3/uL Normal 150-400 [facility] Comment on above: Order Comment: Speci men Type: BLOOD SPECIMENOrdering Facility: [facility] Address: [address] [place] [address] Performed By: #### 5 7021-8 ####[facility]ATORYCLIA [id number] [place] [address] [place] RBC (Bld) [#/Vol] 3.24 10*6/uL Low 4.20-6.00 [facility] Comment on above: Order Comment: Speci men Type: BLOOD SPECIMENOrdering Facility: [facility] Address: [address] [place], [place] [address] Performed By: #### 5 7021-8 ####[facility]ATORYCLIA [id number] [address] [place] WBC (Bld) [#/Vol] 8.10 10*3/uL Normal 3.70-11.00 [facility] Comment on above: Order Comment: Speci men Type: BLOOD SPECIMENOrdering Facility: [facility] Address: [address] [place] [address] Performed By: #### 5 7021-8 ####[facility]ORATORYCLIA [id number] [address] [place] THERAPY NTon 08-15-2021 THERAPY NT Normal [facility] THERAPY NT Normal [facility] THERAPY NT Normal [facility] Basic metabolic 2000 panelon 08-14-2021 Anion gap [Moles/Vol] 10 mmol/L Normal 9-18 [facility] Comment on above: Order Comment: Speci men Type: BLOOD SPECIMENOrdering Facility: [facility] Address: [address] [place] [address] Performed By: #### 2 4321-2 ####[facility]ATORYCLIA [id number] [place] [address] [place] Calcium [Mass/Vol] 8.8 mg/dL Normal 8.5-10.2 [facility] Comment on above: Order Comment: Speci men Type: BLOOD SPECIMENOrdering Facility: [facility] Address: [address] [place] [address] Performed By: #### 2 4321-2 ####[facility]ATORYCLIA [id number] [place] [address] [place] Chloride [Moles/Vol] 92 mmol/L Low 97-105 [facility] Comment on above: Order Comment: Speci men Type: BLOOD SPECIMENOrdering Facility: [facility] Address: [address] [place] [address] Performed By: #### 2 4321-2 ####[facility]ATORYCLIA [id number] [place] [address] [place] CO2 [Moles/Vol] 29 mmol/L Normal 22-30 [facility] Comment on above: Order Comment: Speci men Type: BLOOD SPECIMENOrdering Facility: [facility] Address: [address] [place] [address] Performed By: #### 2 4321-2 ####[facility]ATORYCLIA [id number] [place] [address] [place] Creatinine [Mass/Vol] 0.49 mg/dL Low 0.73-1.22 [facility] Comment on above: Order Comment: Speci men Type: BLOOD SPECIMENOrdering Facility: [facility] Address: [address] [place] [address] Performed By: #### 2 4321-2 ####[facility] HOSPITALIA [id number] [address] ESTIMATED GLOMERULAR FILTRATION RATE 111 mL/min/1.73m??? Normal >=60 [facility] Comment on above: Order Comment: Shira francia Type: BLOOD SPECIMENOrdering Facility: [facility] Address: [address] [place] [address] Result Comment: Luzmaria mated Glomerular Filtration Rate [...] By: #### 2 4321-2 ####[facility] HOSPITALIA [id number] [place] [address] [place] Glucose [Mass/Vol] 104 mg/dL High 74-99 [facility] Comment on above: Order Comment: Shira francia Type: BLOOD SPECIMENOrdering Facility: [facility] Address: [address] [place] [address] Result Comment: The [place] [employer] (ADA) provides guidance for cutoff [...] Standards of Medical Care in Diabetes 2016, [place] [employer]. Diabetes Care. 2016.39(Suppl 1). Performed By: #### 2 4321-2 ####[facility] HOSPITALIA [id number] [place] [address] [place] Potassium [Moles/Vol] 3.1 mmol/L Low 3.7-5.1 [facility] Comment on above: Order Comment: Speci men Type: BLOOD SPECIMENOrdering Facility: [facility] Address: [address] [place] [address] Performed By: #### 2 4321-2 ####[facility]ATORYCLIA [id number] [place] [address] [place] Sodium [Moles/Vol] 131 mmol/L Low 136-144 [facility] Comment on above: Order Comment: Speci men Type: BLOOD SPECIMENOrdering Facility: [facility] Address: [address] [place] [address] Performed By: #### 2 4321-2 ####[facility]ATORYCLIA [id number] [address] [place] Urea nitrogen [Mass/Vol] 13 mg/dL Normal 9-24 [facility] Comment on above: Order Comment: Speci men Type: BLOOD SPECIMENOrdering Facility: [facility] Address: [address] [place] [address] Performed By: #### 2 4321-2 ####[facility]ATORYCLIA [id number] [place] [address] [place] CBC W Auto Differential pane l (Bld)on 08-14-2021 Basophils (Bld) [#/Vol] 10*3/uL Normal <0.11 [facility] Comment on above: Order Comment: Speci men Type: BLOOD SPECIMENOrdering Facility: [facility] Address: [address] [place] [address] Performed By: #### 5 7021-8 ####[facility]ORATORYCLIA [id number] [address] [place] Basophils/100 WBC (Bld) 0.2 % Normal [facility] Comment on above: Order Comment: Speci men Type: BLOOD SPECIMENOrdering Facility: [facility] Address: [address] [place] [address] Performed By: #### 5 7021-8 ####[facility]ATORYCLIA [id number] [address] Differential cell count method Nom (Bld) Auto Normal [facility] Comment on above: Order Comment: Speci men Type: BLOOD SPECIMENOrdering Facility: [facility] Address: [address] [place] [address] Performed By: #### 5 7021-8 ####[facility]ATORYCLIA [id number] [address] [place] Eosinophils (Bld) [#/Vol] 0.23 10*3/uL Normal <0.46 [facility] Comment on above: Order Comment: Speci men Type: BLOOD SPECIMENOrdering Facility: [facility] Address: [address] [place] [address] Performed By: #### 5 7021-8 ####[facility]ATORYCLIA [id number] [address] Eosinophils/100 WBC (Bld) 2.7 % Normal [facility] Comment on above: Order Comment: Speci men Type: BLOOD SPECIMENOrdering Facility: [facility] Address: [address] [place] [address] Performed By: #### 5 7021-8 ####[facility]ATORYCLIA [id number] [address] [place] Erythrocyte distribution width (RBC) [Ratio] 16.6 % High 11.5-15.0 [facility] Comment on above: Order Comment: Speci men Type: BLOOD SPECIMENOrdering Facility: [facility] Address: [address] [place] [address] Performed By: #### 5 7021-8 ####[facility]ATORYCLIA [id number] [address] [place] Hematocrit (Bld) [Volume fraction] 28.6 % Low 39.0-51.0 [facility] Comment on above: Order Comment: Speci men Type: BLOOD SPECIMENOrdering Facility: [facility] Address: [address] [place] [address] Performed By: #### 5 7021-8 ####[facility]ATORYCLIA [id number] [address] [place] Hemoglobin (Bld) [Mass/Vol] 9.0 g/dL Low 13.0-17.0 [facility] Comment on above: Order Comment: Speci men Type: BLOOD SPECIMENOrdering Facility: [facility] Address: [address] [place] [address] Performed By: #### 5 7021-8 ####[facility]ATORYCLIA [id number] [address] IMMATURE GRAN % 0.2 % Normal [facility] Comment on above: Order Comment: Speci men Type: BLOOD SPECIMENOrdering Facility: [facility] Address: [address] [place] [address] Performed By: #### 5 7021-8 ####[facility]ATORYCLIA [id number] [address] IMMATURE GRAN ABS <0.03 Normal <0.10 [facility] Comment on above: Order Comment: Speci men Type: BLOOD SPECIMENOrdering Facility: [facility] Address: [address] [place] [address] Performed By: #### 5 7021-8 ####[facility]ATORYCLIA [id number] [address] [place] Lymphocytes (Bld) [#/Vol] 1.33 10*3/uL Normal 1.00-4.00 [facility] Comment on above: Order Comment: Speci men Type: BLOOD SPECIMENOrdering Facility: [facility] Address: [address] [place] [address] Performed By: #### 5 7021-8 ####[facility]ATORYCLIA [id number] [address] Lymphocytes/100 WBC (Bld) 15.6 % Normal [facility] Comment on above: Order Comment: Speci men Type: BLOOD SPECIMENOrdering Facility: [facility] Address: [address] [place] [address] Performed By: #### 5 7021-8 ####[facility]ATORYCLIA [id number] [address] STATES OF [facility] MCH (RBC) [Entitic mass] 29.0 pg Normal 26.0-34.0 [facility] Comment on above: Order Comment: Speci men Type: BLOOD SPECIMENOrdering Facility: [facility] Address: [address] [place] [address] Performed By: #### 5 7021-8 ####[facility]ATORYCLIA [id number] [address] OF [facility] MCHC (RBC) [Mass/Vol] 31.5 g/dL Normal 30.5-36.0 [facility] Comment on above: Order Comment: Speci men Type: BLOOD SPECIMENOrdering Facility: [facility] Address: [address] [place] [address] Performed By: #### 5 7021-8 ####[facility]ATORYCLIA [id number] [address] MCV (RBC) [Entitic vol] 92.3 fL Normal 80.0-100.0 [facility] Comment on above: Order Comment: Speci men Type: BLOOD SPECIMENOrdering Facility: [facility] Address: [address] [place] [address] Performed By: #### 5 7021-8 ####[facility]ATORYCLIA [id number] [address] Monocytes (Bld) [#/Vol] 0.44 10*3/uL Normal <0.87 [facility] Comment on above: Order Comment: Speci men Type: BLOOD SPECIMENOrdering Facility: [facility] Address: [address] [place] [address] Performed By: #### 5 7021-8 ####[facility]ORYCLIA [id number] [address] [place] Monocytes/100 WBC (Bld) 5.2 % Normal [facility] Comment on above: Order Comment: Speci men Type: BLOOD SPECIMENOrdering Facility: [facility] Address: [address] [place] [address] Performed By: #### 5 7021-8 ####[facility]ORYCLIA [id number] [address] [place] Neutrophils (Bld) [#/Vol] 6.46 10*3/uL Normal 1.45-7.50 [facility] Comment on above: Order Comment: Speci men Type: BLOOD SPECIMENOrdering Facility: [facility] Address: [address] [place] [address] Performed By: #### 5 7021-8 ####[facility]ATORYCLIA [id number] [address] Neutrophils/100 WBC (Bld) 76.1 % Normal [facility] Comment on above: Order Comment: Speci men Type: BLOOD SPECIMENOrdering Facility: [facility] Address: [address] [place] [address] Performed By: #### 5 7021-8 ####[facility]ORYCLIA [id number] [address] [place] Nucleated RBC (Bld) [#/Vol] 10*3/uL Normal <0.01 [facility] Comment on above: Order Comment: Speci men Type: BLOOD SPECIMENOrdering Facility: [facility] Address: [address] [place] [address] Performed By: #### 5 7021-8 ####[facility]ORYCLIA [id number] [address] [place] Nucleated RBC/100 WBC (Bld) [Ratio] 0.0 /100 WBC Normal [facility] Comment on above: Order Comment: Speci men Type: BLOOD SPECIMENOrdering Facility: [facility] Address: [address] [place], [place] [address] Performed By: #### 5 7021-8 ####[facility]ATORYCLIA [id number] [address] Platelet mean volume (Bld) [Entitic vol] 9.5 fL Normal 9.0-12.7 [facility] Comment on above: Order Comment: Speci men Type: BLOOD SPECIMENOrdering Facility: [facility] Address: [address] [place], [place] [address] Performed By: #### 5 7021-8 ####[facility]ORATORYCLIA [id number] [address] [place] Platelets (Bld) [#/Vol] 247 10*3/uL Normal 150-400 [facility] Comment on above: Order Comment: Speci men Type: BLOOD SPECIMENOrdering Facility: [facility] Address: [address] [place], [place] [address] Performed By: #### 5 7021-8 ####[facility]ORATORYCLIA [id number] [place] [address] [place] RBC (Bld) [#/Vol] 3.10 10*6/uL Low 4.20-6.00 [facility] Comment on above: Order Comment: Speci men Type: BLOOD SPECIMENOrdering Facility: [facility] Address: [address] [place], [place] [address] Performed By: #### 5 7021-8 ####[facility]ATORYCLIA [id number] [address] [place] WBC (Bld) [#/Vol] 8.50 10*3/uL Normal 3.70-11.00 [facility] Comment on above: Order Comment: Speci men Type: BLOOD SPECIMENOrdering Facility: [facility] Address: [address] [place], [place] [address] Performed By: #### 5 7021-8 ####[facility]ATORYCLIA [id number] [place] [address] [place] CONSULTon 08-14-2021 CONSULT Normal [facility] NURSING PROGon 08-14-2021 NURSING PROG Normal [facility] CBC W Auto Differential pane l (Bld)on 08-13-2021 Basophils (Bld) [#/Vol] 10*3/uL Normal <0.11 [facility] Comment on above: Order Comment: Speci men Type: BLOOD SPECIMENOrdering Facility: [facility] Address: [address] [place] [address] Performed By: #### 5 7021-8 ####[facility]ATORYCLIA [id number] [address] Basophils/100 WBC (Bld) 0.2 % Normal [facility] Comment on above: Order Comment: Speci men Type: BLOOD SPECIMENOrdering Facility: [facility] Address: [address] [place] [address] Performed By: #### 5 7021-8 ####[facility]ORYCLIA [id number] [address] [place] [facility] Differential cell count method Nom (Bld) Auto Normal [facility] Comment on above: Order Comment: Speci men Type: BLOOD SPECIMENOrdering Facility: [facility] Address: [address] [place] [address] Performed By: #### 5 7021-8 ####[facility]ATORYCLIA [id number] [place] [address] [place] Eosinophils (Bld) [#/Vol] 0.31 10*3/uL Normal <0.46 [facility] Comment on above: Order Comment: Speci men Type: BLOOD SPECIMENOrdering Facility: [facility] Address: [address] [place] [address] Performed By: #### 5 7021-8 ####[facility]ATORYCLIA [id number] [address] [place] Eosinophils/100 WBC (Bld) 3.7 % Normal [facility] Comment on above: Order Comment: Speci men Type: BLOOD SPECIMENOrdering Facility: [facility] Address: [address] [place] [address] Performed By: #### 5 7021-8 ####[facility]ATORYCLIA [id number] [address] Erythrocyte distribution width (RBC) [Ratio] 16.6 % High 11.5-15.0 [facility] Comment on above: Order Comment: Speci men Type: BLOOD SPECIMENOrdering Facility: [facility] Address: [address] [place] [address] Performed By: #### 5 7021-8 ####[facility]ATORYCLIA [id number] [address] Hematocrit (Bld) [Volume fraction] 27.5 % Low 39.0-51.0 [facility] Comment on above: Order Comment: Speci men Type: BLOOD SPECIMENOrdering Facility: [facility] Address: [address] [place] [address] Performed By: #### 5 7021-8 ####[facility]ATORYCLIA [id number] [address] Hemoglobin (Bld) [Mass/Vol] 8.4 g/dL Low 13.0-17.0 [facility] Comment on above: Order Comment: Speci men Type: BLOOD SPECIMENOrdering Facility: [facility] Address: [address] [place] [address] Performed By: #### 5 7021-8 ####[facility]ATORYCLIA [id number] [address] IMMATURE GRAN % 0.5 % Normal [facility] Comment on above: Order Comment: Speci men Type: BLOOD SPECIMENOrdering Facility: [facility] Address: [address] [place] [address] Performed By: #### 5 7021-8 ####[facility]ORATORYCLIA [id number] [place] [address] [place] IMMATURE GRAN ABS 0.04 k/uL Normal <0.10 [facility] Comment on above: Order Comment: Speci men Type: BLOOD SPECIMENOrdering Facility: [facility] Address: [address] [place] [address] Performed By: #### 5 7021-8 ####[facility]ATORYCLIA [id number] [address] Lymphocytes (Bld) [#/Vol] 1.55 10*3/uL Normal 1.00-4.00 [facility] Comment on above: Order Comment: Speci men Type: BLOOD SPECIMENOrdering Facility: [facility] Address: [address] [place] [address] Performed By: #### 5 7021-8 ####[facility]ORATORYCLIA [id number] [address] Lymphocytes/100 WBC (Bld) 18.7 % Normal [facility] Comment on above: Order Comment: Speci men Type: BLOOD SPECIMENOrdering Facility: [facility] Address: [address] [place] [address] Performed By: #### 5 7021-8 ####[facility]ATORYCLIA [id number] [address] MCH (RBC) [Entitic mass] 28.9 pg Normal 26.0-34.0 [facility] Comment on above: Order Comment: Speci men Type: BLOOD SPECIMENOrdering Facility: [facility] Address: [address] [place] [address] Performed By: #### 5 7021-8 ####[facility]ATORYCLIA [id number] [address] MCHC (RBC) [Mass/Vol] 30.5 g/dL Normal 30.5-36.0 [facility] Comment on above: Order Comment: Speci men Type: BLOOD SPECIMENOrdering Facility: [facility] Address: [address] [place] [address] Performed By: #### 5 7021-8 ####[facility]ORYCLIA [id number] [place] [address] [place] MCV (RBC) [Entitic vol] 94.5 fL Normal 80.0-100.0 [facility] Comment on above: Order Comment: Speci men Type: BLOOD SPECIMENOrdering Facility: [facility] Address: [address] [place] [address] Performed By: #### 5 7021-8 ####[facility]ORATORYCLIA [id number] [place] [address] [place] Monocytes (Bld) [#/Vol] 0.47 10*3/uL Normal <0.87 [facility] Comment on above: Order Comment: Speci men Type: BLOOD SPECIMENOrdering Facility: [facility] Address: [address] [place] [address] Performed By: #### 5 7021-8 ####[facility]ATORYCLIA [id number] [address] Monocytes/100 WBC (Bld) 5.7 % Normal [facility] Comment on above: Order Comment: Speci men Type: BLOOD SPECIMENOrdering Facility: [facility] Address: [address] [place] [address] Performed By: #### 5 7021-8 ####[facility] LABORATORYCLIA [id number] [place] [address] [place] Neutrophils (Bld) [#/Vol] 5.92 10*3/uL Normal 1.45-7.50 [facility] Comment on above: Order Comment: Speci men Type: BLOOD SPECIMENOrdering Facility: [facility] Address: [address] [place] [address] Performed By: #### 5 7021-8 ####[facility] LABORATORYCLIA [id number] [address] [place] Neutrophils/100 WBC (Bld) 71.2 % Normal [facility] Comment on above: Order Comment: Speci men Type: BLOOD SPECIMENOrdering Facility: [facility] Address: [address] [address] Performed By: #### 5 7021-8 ####[facility] LABORATORYCLIA [id number] [address] Nucleated RBC (Bld) [#/Vol] 10*3/uL Normal <0.01 [facility] Comment on above: Order Comment: Speci men Type: BLOOD SPECIMENOrdering Facility: [facility] Address: [address] [place] [address] Performed By: #### 5 7021-8 ####[facility]ORATORYCLIA [id number] [address] OF [facility] Nucleated RBC/100 WBC (Bld) [Ratio] 0.0 /100 WBC Normal [facility] Comment on above: Order Comment: Speci men Type: BLOOD SPECIMENOrdering Facility: [facility] Address: [address] [place] [address] Performed By: #### 5 7021-8 ####[facility]ATORYCLIA [id number] [address] [place] Platelet mean volume (Bld) [Entitic vol] 9.9 fL Normal 9.0-12.7 [facility] Comment on above: Order Comment: Speci men Type: BLOOD SPECIMENOrdering Facility: [facility] Address: [address] [place] [address] Performed By: #### 5 7021-8 ####[facility]ATORYCLIA [id number] [address] [place] Platelets (Bld) [#/Vol] 203 10*3/uL Normal 150-400 [facility] Comment on above: Order Comment: Speci men Type: BLOOD SPECIMENOrdering Facility: [facility] Address: [address] [place] [address] Performed By: #### 5 7021-8 ####[facility]ATORYCLIA [id number] [address] [place] RBC (Bld) [#/Vol] 2.91 10*6/uL Low 4.20-6.00 [facility] Comment on above: Order Comment: Speci men Type: BLOOD SPECIMENOrdering Facility: [facility] Address: [address] [place] [address] Performed By: #### 5 7021-8 ####[facility]ORATORYCLIA [id number] [place] [address] [place] [facility] WBC (Bld) [#/Vol] 8.31 10*3/uL Normal 3.70-11.00 [facility] Comment on above: Order Comment: Speci men Type: BLOOD SPECIMENOrdering Facility: [facility] Address: [address] [place] [address] Performed By: #### 5 7021-8 ####[facility]ATORYCLIA [id number] [address] STATES [facility] aPTT PPPon 08-13-2021 aPTT Coag (PPP) [Time] 69.7 s High 23.0-32.4 [facility] Comment on above: Order Comment: Speci men Type: BLOOD SPECIMENOrdering Facility: [facility] Address: [address] [place] [address] Performed By: #### 1 4979-9 ####[facility]ATORYCLIA [id number] [address] STATES [facility] aPTT Coag (PPP) [Time] 70.6 s High 23.0-32.4 [facility] Comment on above: Order Comment: Speci men Type: BLOOD SPECIMENOrdering Facility: [facility] Address: [address] [place] [address] Performed By: #### 1 4979-9 ####[facility]ATORYCLIA [id number] [address] [place] ALLIED HEALTHon 08-12-2021 ALLIED HEALTH Normal [facility] ALLIED HEALTH Normal [facility] Basic metabolic 2000 panelon 08-12-2021 Anion gap [Moles/Vol] 7 mmol/L Low 9-18 [facility] Comment on above: Order Comment: Speci men Type: BLOOD SPECIMENOrdering Facility: [facility] Address: [address] [place], [place] [address] Performed By: #### 2 4321-2, , 2776-05 ####[facility]ATORYCLIA [id number] [place] [address] [place] Calcium [Mass/Vol] 8.8 mg/dL Normal 8.5-10.2 [facility] Comment on above: Order Comment: Speci men Type: BLOOD SPECIMENOrdering Facility: [facility] Address: [address] [place] [address] Performed By: #### 2 4321-2, , 2776-05 ####[facility]ATORYCLIA [id number] [place] [address] [place] Chloride [Moles/Vol] 96 mmol/L Low 97-105 [facility] Comment on above: Order Comment: Speci men Type: BLOOD SPECIMENOrdering Facility: [facility] Address: [address] [place], [place] [address] Performed By: #### 2 4321-2, , 2776-05 ####[facility]ATORYCLIA [id number] [place] [address] [place] CO2 [Moles/Vol] 32 mmol/L High 22-30 [facility] Comment on above: Order Comment: Speci men Type: BLOOD SPECIMENOrdering Facility: [facility] Address: [address] [place], [place] [address] Performed By: #### 2 4321-2, , 2776-05 ####[facility]ATORYCLIA [id number] [place] [address] [place] Creatinine [Mass/Vol] 0.52 mg/dL Low 0.73-1.22 [facility] Comment on above: Order Comment: Speci men Type: BLOOD SPECIMENOrdering Facility: [facility] Address: [address] [place], [place] [address] Performed By: #### 2 4321-2, 20247-5, 2776-1 ####[facility] HOSPITALCLIA [id number] [address] [place] ESTIMATED GLOMERULAR FILTRATION RATE 109 mL/min/1.73m??? Normal >=60 [facility] Comment on above: Order Comment: Shira feldman Type: BLOOD SPECIMENOrdering Facility: [facility] Address: [address] [place] [address] Result Comment: Luzmaria mated Glomerular Filtration Rate [...] Performed By: #### 2 4321-2, , 2776-05 ####[facility] HOSPITALCLIA [id number] [place] [address] [place] Glucose [Mass/Vol] 119 mg/dL High 74-99 [facility] Comment on above: Order Comment: Shira feldman Type: BLOOD SPECIMENOrdering Facility: [facility] Address: [address] [place] [address] Result Comment: The [place] Diabetes [employer] (ADA) provides guidance for cutoff [...] Standards of Medical Care in Diabetes 2016, [place] [employer]. Diabetes Care. 2016.39(Suppl 1). Performed By: #### 2 4321-2, , 2776-1 ####[facility] HOSPITALCLIA [id number] [place] [address] [place] Potassium [Moles/Vol] 3.7 mmol/L Normal 3.7-5.1 [facility] Comment on above: Order Comment: Speci men Type: BLOOD SPECIMENOrdering Facility: [facility] Address: [address] [place] [address] Performed By: #### 2 4321-2, , 2776-05 ####[facility]ATORYCLIA [id number] [place] [address] [place] Sodium [Moles/Vol] 135 mmol/L Low 136-144 [facility] Comment on above: Order Comment: Speci men Type: BLOOD SPECIMENOrdering Facility: [facility] Address: [address] [place] [address] Performed By: #### 2 4321-2, , 2776- ####[facility]ATORYCLIA [id number] [address] [place] Urea nitrogen [Mass/Vol] 20 mg/dL Normal 9-24 [facility] Comment on above: Order Comment: Speci men Type: BLOOD SPECIMENOrdering Facility: [facility] Address: [address] [place] [address] Performed By: #### 2 4321-2, , 27711-04 ####[facility]ATORYCLIA [id number] [address] [place] CASE MANAGEMon 08-12-2021 CASE MANAGEM Normal [facility] CBC W Auto Differential pane l (Bld)on 08-12-2021 Basophils (Bld) [#/Vol] 0.04 10*3/uL Normal <0.11 [facility] Comment on above: Order Comment: Speci men Type: BLOOD SPECIMENOrdering Facility: [facility] Address: [address] [place] [address] Performed By: #### 5 7021-8 ####[facility]ATORYCLIA [id number] [address] [place] Basophils/100 WBC (Bld) 0.5 % Normal [facility] Comment on above: Order Comment: Speci men Type: BLOOD SPECIMENOrdering Facility: [facility] Address: [address] [place] [address] Performed By: #### 5 7021-8 ####[facility]ATORYCLIA [id number] [address] [place] Differential cell count method Nom (Bld) Auto Normal [facility] Comment on above: Order Comment: Speci men Type: BLOOD SPECIMENOrdering Facility: [facility] Address: [address] [place] [address] Performed By: #### 5 7021-8 ####[facility]ATORYCLIA [id number] [address] [place] Eosinophils (Bld) [#/Vol] 0.19 10*3/uL Normal <0.46 [facility] Comment on above: Order Comment: Speci men Type: BLOOD SPECIMENOrdering Facility: [facility] Address: [address] [place] [address] Performed By: #### 5 7021-8 ####[facility]ATORYCLIA [id number] [address] [place] Eosinophils/100 WBC (Bld) 2.3 % Normal [facility] Comment on above: Order Comment: Speci men Type: BLOOD SPECIMENOrdering Facility: [facility] Address: [address] [place] [address] Performed By: #### 5 7021-8 ####[facility]ATORYCLIA [id number] [address] [place] Erythrocyte distribution width (RBC) [Ratio] 17.1 % High 11.5-15.0 [facility] Comment on above: Order Comment: Speci men Type: BLOOD SPECIMENOrdering Facility: [facility] Address: [address] [place] [address] Performed By: #### 5 7021-8 ####[facility]ATORYCLIA [id number] [address] Hematocrit (Bld) [Volume fraction] 25.3 % Low 39.0-51.0 [facility] Comment on above: Order Comment: Speci men Type: BLOOD SPECIMENOrdering Facility: [facility] Address: [address] [place] [address] Performed By: #### 5 7021-8 ####[facility]ATORYCLIA [id number] [address] Hemoglobin (Bld) [Mass/Vol] 7.9 g/dL Low 13.0-17.0 [facility] Comment on above: Order Comment: Speci men Type: BLOOD SPECIMENOrdering Facility: [facility] Address: [address] [place] [address] Performed By: #### 5 7021-8 ####[facility]ATORYCLIA [id number] [address] IMMATURE GRAN % 0.5 % Normal [facility] Comment on above: Order Comment: Speci men Type: BLOOD SPECIMENOrdering Facility: [facility] Address: [address] [place] [address] Performed By: #### 5 7021-8 ####[facility] LABORATORYCLIA [id number] [address] IMMATURE GRAN ABS 0.04 k/uL Normal <0.10 [facility] Comment on above: Order Comment: Speci men Type: BLOOD SPECIMENOrdering Facility: [facility] Address: [address] [place] [address] Performed By: #### 5 7021-8 ####[facility]ATORYCLIA [id number] [address] Lymphocytes (Bld) [#/Vol] 1.69 10*3/uL Normal 1.00-4.00 [facility] Comment on above: Order Comment: Speci men Type: BLOOD SPECIMENOrdering Facility: [facility] Address: [address] [place] [address] Performed By: #### 5 7021-8 ####[facility]ATORYCLIA [id number] [address] Lymphocytes/100 WBC (Bld) 20.1 % Normal [facility] Comment on above: Order Comment: Speci men Type: BLOOD SPECIMENOrdering Facility: [facility] Address: [address] [place] [address] Performed By: #### 5 7021-8 ####[facility]ATORYCLIA [id number] [address] MCH (RBC) [Entitic mass] 28.5 pg Normal 26.0-34.0 [facility] Comment on above: Order Comment: Speci men Type: BLOOD SPECIMENOrdering Facility: [facility] Address: [address] [place] [address] Performed By: #### 5 7021-8 ####[facility]ATORYCLIA [id number] [address] MCHC (RBC) [Mass/Vol] 31.2 g/dL Normal 30.5-36.0 [facility] Comment on above: Order Comment: Speci men Type: BLOOD SPECIMENOrdering Facility: [facility] Address: [address] [place] [address] Performed By: #### 5 7021-8 ####[facility]ATORYCLIA [id number] [address] MCV (RBC) [Entitic vol] 91.3 fL Normal 80.0-100.0 [facility] Comment on above: Order Comment: Speci men Type: BLOOD SPECIMENOrdering Facility: [facility] Address: [address] [place] [address] Performed By: #### 5 7021-8 ####[facility]ATORYCLIA [id number] [address] Monocytes (Bld) [#/Vol] 0.53 10*3/uL Normal <0.87 [facility] Comment on above: Order Comment: Speci men Type: BLOOD SPECIMENOrdering Facility: [facility] Address: [address] [place] [address] Performed By: #### 5 7021-8 ####[facility]ORATORYCLIA [id number] [address] [place] Monocytes/100 WBC (Bld) 6.3 % Normal [facility] Comment on above: Order Comment: Speci men Type: BLOOD SPECIMENOrdering Facility: [facility] Address: [address] [place] [address] Performed By: #### 5 7021-8 ####[facility]ATORYCLIA [id number] [address] [place] Neutrophils (Bld) [#/Vol] 5.90 10*3/uL Normal 1.45-7.50 [facility] Comment on above: Order Comment: Speci men Type: BLOOD SPECIMENOrdering Facility: [facility] Address: [address] [place] [address] Performed By: #### 5 7021-8 ####[facility]ORATORYCLIA [id number] [address] [place] Neutrophils/100 WBC (Bld) 70.3 % Normal [facility] Comment on above: Order Comment: Speci men Type: BLOOD SPECIMENOrdering Facility: [facility] Address: [address] [place] [address] Performed By: #### 5 7021-8 ####[facility]ORATORYCLIA [id number] [place] [address] [place] Nucleated RBC (Bld) [#/Vol] 10*3/uL Normal <0.01 [facility] Comment on above: Order Comment: Speci men Type: BLOOD SPECIMENOrdering Facility: [facility] Address: [address] [place] [address] Performed By: #### 5 7021-8 ####[facility]ORATORYCLIA [id number] [place] [address] [place] Nucleated RBC/100 WBC (Bld) [Ratio] 0.0 /100 WBC Normal [facility] Comment on above: Order Comment: Speci men Type: BLOOD SPECIMENOrdering Facility: [facility] Address: [address] [place] [address] Performed By: #### 5 7021-8 ####[facility] LABORATORYCLIA [id number] [place] [address] [place] Platelet mean volume (Bld) [Entitic vol] 9.8 fL Normal 9.0-12.7 [facility] Comment on above: Order Comment: Speci men Type: BLOOD SPECIMENOrdering Facility: [facility] Address: [address] [place] [address] Performed By: #### 5 7021-8 ####[facility]ORATORYCLIA [id number] [address] [place] Platelets (Bld) [#/Vol] 164 10*3/uL Normal 150-400 [facility] Comment on above: Order Comment: Speci men Type: BLOOD SPECIMENOrdering Facility: [facility] Address: [address] [place] [address] Performed By: #### 5 7021-8 ####[facility]ATORYCLIA [id number] [place] [address] [place] RBC (Bld) [#/Vol] 2.77 10*6/uL Low 4.20-6.00 [facility] Comment on above: Order Comment: Speci men Type: BLOOD SPECIMENOrdering Facility: [facility] Address: [address] [place] [address] Performed By: #### 5 7021-8 ####[facility]ORATORYCLIA [id number] [place] [address] [place] WBC (Bld) [#/Vol] 8.39 10*3/uL Normal 3.70-11.00 [facility] Comment on above: Order Comment: Speci men Type: BLOOD SPECIMENOrdering Facility: [facility] Address: [address] [place] [address] Performed By: #### 5 7021-8 ####[facility]ORATORYCLIA [id number] [address] BRAIN WO IVCONon 08-13-19 CT BRAIN WO IVCON Normal [facility] CT BRAIN WO IVCON Normal [facility] Magnesium SerPl-mCncon 08-12 Magnesium [Mass/Vol] 2.0 mg/dL Normal 1.7-2.3 [facility] Comment on above: Order Comment: Speci men Type: BLOOD SPECIMENOrdering Facility: [facility] Address: [address] [place] [address] Performed By: #### 2 4321-2, 29948-8, 2777-1 ####[facility]ATORYCLIA [id number] [address] Phosphate SerPl-mCncon 08-12 Phosphate [Mass/Vol] 2.9 mg/dL Normal 2.7-4.8 [facility] Comment on above: Order Comment: Speci men Type: BLOOD SPECIMENOrdering Facility: [facility] Address: [address] [place] [address] Performed By: #### 2 4321-2, 44340-3, 2777-1 ####[facility]ATORYCLIA [id number] [address] [place] THERAPY NTon 08-12-2021 THERAPY NT Normal [facility] THERAPY NT Normal [facility] aPTT PPPon 08-12-2021 aPTT Coag (PPP) [Time] 94.2 s High 23.0-32.4 [facility] Comment on above: Order Comment: Speci men Type: BLOOD SPECIMENOrdering Facility: [facility] Address: [address] [place] [address] Performed By: #### 1 4979-9 ####[facility]ATORYCLIA [id number] [address] aPTT Coag (PPP) [Time] 84.4 s High 23.0-32.4 [facility] Comment on above: Order Comment: Speci men Type: BLOOD SPECIMENOrdering Facility: [facility] Address: [address] [place] [address] Performed By: #### 1 4979-9 ####[facility]ATORYCLIA [id number] [address] aPTT Coag (PPP) [Time] 71.3 s High 23.0-32.4 [facility] Comment on above: Order Comment: Speci men Type: BLOOD SPECIMENOrdering Facility: [facility] Address: [address] [place] [address] Performed By: #### 1 4979-9 ####[facility]ORATORYCLIA [id number] [address] OF [facility] ALLIED HEALTHon 08-11-2021 ALLIED HEALTH Normal [facility] CBC W Auto Differential pane l (Bld)on 08-11-2021 Basophils (Bld) [#/Vol] 10*3/uL Normal <0.11 [facility] Comment on above: Order Comment: Speci men Type: BLOOD SPECIMENOrdering Facility: [facility] Address: [address] [place] [address] Performed By: #### 5 7021-8 ####[facility]ORATORYCLIA [id number] [address] [place] [facility] Basophils/100 WBC (Bld) 0.2 % Normal [facility] Comment on above: Order Comment: Speci men Type: BLOOD SPECIMENOrdering Facility: [facility] Address: [address] [place] [address] Performed By: #### 5 7021-8 ####[facility]ORATORYCLIA [id number] [address] Differential cell count method Nom (Bld) Auto Normal [facility] Comment on above: Order Comment: Speci men Type: BLOOD SPECIMENOrdering Facility: [facility] Address: [address] [place] [address] Performed By: #### 5 7021-8 ####[facility]ATORYCLIA [id number] [address] Eosinophils (Bld) [#/Vol] 0.16 10*3/uL Normal <0.46 [facility] Comment on above: Order Comment: Speci men Type: BLOOD SPECIMENOrdering Facility: [facility] Address: [address] [place] [address] Performed By: #### 5 7021-8 ####[facility]ATORYCLIA [id number] [address] Eosinophils/100 WBC (Bld) 1.8 % Normal [facility] Comment on above: Order Comment: Speci men Type: BLOOD SPECIMENOrdering Facility: [facility] Address: [address] [place] [address] Performed By: #### 5 7021-8 ####[facility]ATORYCLIA [id number] [address] Erythrocyte distribution width (RBC) [Ratio] 17.3 % High 11.5-15.0 [facility] Comment on above: Order Comment: Speci men Type: BLOOD SPECIMENOrdering Facility: [facility] Address: [address] [place] [address] Performed By: #### 5 7021-8 ####[facility]ATORYCLIA [id number] [address] Hematocrit (Bld) [Volume fraction] 26.6 % Low 39.0-51.0 [facility] Comment on above: Order Comment: Speci men Type: BLOOD SPECIMENOrdering Facility: [facility] Address: [address] [place] [address] Performed By: #### 5 7021-8 ####[facility]ORATORYCLIA [id number] [address] [place] Hemoglobin (Bld) [Mass/Vol] 8.2 g/dL Low 13.0-17.0 [facility] Comment on above: Order Comment: Speci men Type: BLOOD SPECIMENOrdering Facility: [facility] Address: [address] [place] [address] Performed By: #### 5 7021-8 ####[facility]ORATORYCLIA [id number] [address] IMMATURE GRAN % 0.6 % Normal [facility] Comment on above: Order Comment: Speci men Type: BLOOD SPECIMENOrdering Facility: [facility] Address: [address] [place] [address] Performed By: #### 5 7021-8 ####[facility]ORATORYCLIA [id number] [address] OF [facility] IMMATURE GRAN ABS 0.05 k/uL Normal <0.10 [facility] Comment on above: Order Comment: Speci men Type: BLOOD SPECIMENOrdering Facility: [facility] Address: [address] [place] [address] Performed By: #### 5 7021-8 ####[facility]ORATORYCLIA [id number] [address] [place] Lymphocytes (Bld) [#/Vol] 1.40 10*3/uL Normal 1.00-4.00 [facility] Comment on above: Order Comment: Speci men Type: BLOOD SPECIMENOrdering Facility: [facility] Address: [address] [place] [address] Performed By: #### 5 7021-8 ####[facility]ORATORYCLIA [id number] [address] Lymphocytes/100 WBC (Bld) 15.8 % Normal [facility] Comment on above: Order Comment: Speci men Type: BLOOD SPECIMENOrdering Facility: [facility] Address: [address] [place] [address] Performed By: #### 5 7021-8 ####[facility]ORATORYCLIA [id number] [address] MCH (RBC) [Entitic mass] 28.4 pg Normal 26.0-34.0 [facility] Comment on above: Order Comment: Speci men Type: BLOOD SPECIMENOrdering Facility: [facility] Address: [address] [place] [address] Performed By: #### 5 7021-8 ####[facility]ORATORYCLIA [id number] [address] [place] MCHC (RBC) [Mass/Vol] 30.8 g/dL Normal 30.5-36.0 [facility] Comment on above: Order Comment: Speci men Type: BLOOD SPECIMENOrdering Facility: [facility] Address: [address] [place] [address] Performed By: #### 5 7021-8 ####[facility]ORATORYCLIA [id number] [address] MCV (RBC) [Entitic vol] 92.0 fL Normal 80.0-100.0 [facility] Comment on above: Order Comment: Speci men Type: BLOOD SPECIMENOrdering Facility: [facility] Address: [address] [place] [address] Performed By: #### 5 7021-8 ####[facility] LABORATORYCLIA [id number] [facility] Monocytes (Bld) [#/Vol] 0.61 10*3/uL Normal <0.87 [facility] Comment on above: Order Comment: Speci men Type: BLOOD SPECIMENOrdering Facility: [facility] Address: [address] [place] [address] Performed By: #### 5 7021-8 ####[facility] LABORATORYCLIA [id number] [address] Monocytes/100 WBC (Bld) 6.9 % Normal [facility] Comment on above: Order Comment: Speci men Type: BLOOD SPECIMENOrdering Facility: [facility] Address: [address] [address] Performed By: #### 5 7021-8 ####[facility]ATORYCLIA [id number] [address] [place] Neutrophils (Bld) [#/Vol] 6.62 10*3/uL Normal 1.45-7.50 [facility] Comment on above: Order Comment: Speci men Type: BLOOD SPECIMENOrdering Facility: [facility] Address: [address] [address] Performed By: #### 5 7021-8 ####[facility]ORYCLIA [id number] [address] [place] Neutrophils/100 WBC (Bld) 74.7 % Normal [facility] Comment on above: Order Comment: Speci men Type: BLOOD SPECIMENOrdering Facility: [facility] Address: [address] [address] Performed By: #### 5 7021-8 ####[facility]ORYCLIA [id number] [address] [place] Nucleated RBC (Bld) [#/Vol] 10*3/uL Normal <0.01 [facility] Comment on above: Order Comment: Speci men Type: BLOOD SPECIMENOrdering Facility: [facility] Address: [address] [place] [address] Performed By: #### 5 7021-8 ####[facility]ORYCLIA [id number] [address] [place] Nucleated RBC/100 WBC (Bld) [Ratio] 0.0 /100 WBC Normal [facility] Comment on above: Order Comment: Speci men Type: BLOOD SPECIMENOrdering Facility: [facility] Address: [facility] [address] Performed By: #### 5 7021-8 ####[facility]ORYCLIA [id number] [address] [place] Platelet mean volume (Bld) [Entitic vol] 9.8 fL Normal 9.0-12.7 [facility] Comment on above: Order Comment: Speci men Type: BLOOD SPECIMENOrdering Facility: [facility] Address: [address] [place] [address] Performed By: #### 5 7021-8 ####[facility]ORYCLIA [id number] [address] [facility] Platelets (Bld) [#/Vol] 157 10*3/uL Normal 150-400 [facility] Comment on above: Order Comment: Speci men Type: BLOOD SPECIMENOrdering Facility: [facility] Address: [address] [place] [address] Performed By: #### 5 7021-8 ####[facility]ORYCLIA [id number] [address] RBC (Bld) [#/Vol] 2.89 10*6/uL Low 4.20-6.00 [facility] Comment on above: Order Comment: Speci men Type: BLOOD SPECIMENOrdering Facility: [facility] Address: [address] [place] [address] Performed By: #### 5 7021-8 ####[facility]ORYCLIA [id number] [address] WBC (Bld) [#/Vol] 8.86 10*3/uL Normal 3.70-11.00 [facility] Comment on above: Order Comment: Speci men Type: BLOOD SPECIMENOrdering Facility: [facility] Address: [address] [place] [address] Performed By: #### 5 7021-8 ####[facility]ORYCLIA [id number] [address] CBC panel Auto (Bld)on 08-11 Erythrocyte distribution width (RBC) [Ratio] 17.2 % High 11.5-15.0 [facility] Comment on above: Order Comment: Speci men Type: BLOOD SPECIMENOrdering Facility: [facility] Address: [address] [place] [address] Performed By: #### 5 8410-2 ####[facility]ORYCLIA [id number] [address] Hematocrit (Bld) [Volume fraction] 27.0 % Low 39.0-51.0 [facility] Comment on above: Order Comment: Speci men Type: BLOOD SPECIMENOrdering Facility: [facility] Address: [address] [place] [address] Performed By: #### 5 8410-2 ####[facility]ORYCLIA [id number] [address] Hemoglobin (Bld) [Mass/Vol] 8.3 g/dL Low 13.0-17.0 [facility] Comment on above: Order Comment: Speci men Type: BLOOD SPECIMENOrdering Facility: [facility] Address: [address] [place] [address] Performed By: #### 5 8410-2 ####[facility]ORYCLIA [id number] [address] MCH (RBC) [Entitic mass] 28.7 pg Normal 26.0-34.0 [facility] Comment on above: Order Comment: Speci men Type: BLOOD SPECIMENOrdering Facility: [facility] Address: [address] [place] [address] Performed By: #### 5 8410-2 ####[facility]ORYCLIA [id number] [address] [place] MCHC (RBC) [Mass/Vol] 30.7 g/dL Normal 30.5-36.0 [facility] Comment on above: Order Comment: Speci men Type: BLOOD SPECIMENOrdering Facility: [facility] Address: [address] [place] [address] Performed By: #### 5 8410-2 ####[facility]ORYCLIA [id number] [address] [place] MCV (RBC) [Entitic vol] 93.4 fL Normal 80.0-100.0 [facility] Comment on above: Order Comment: Speci men Type: BLOOD SPECIMENOrdering Facility: [facility] Address: [address] [address] Performed By: #### 5 8410-2 ####[facility]ORYCLIA [id number] [address] [place] Nucleated RBC (Bld) [#/Vol] 10*3/uL Normal <0.01 [facility] Comment on above: Order Comment: Speci men Type: BLOOD SPECIMENOrdering Facility: [facility] Address: [address] [place] [address] Performed By: #### 5 8410-2 ####[facility]ORYCLIA [id number] [address] [place] Platelet mean volume (Bld) [Entitic vol] 9.8 fL Normal 9.0-12.7 [facility] Comment on above: Order Comment: Speci men Type: BLOOD SPECIMENOrdering Facility: [facility] Address: [address] [place] [address] Performed By: #### 5 8410-2 ####[facility]ORYCLIA [id number] [address] [place] Platelets (Bld) [#/Vol] 169 10*3/uL Normal 150-400 [facility] Comment on above: Order Comment: Speci men Type: BLOOD SPECIMENOrdering Facility: [facility] Address: [address] Performed By: #### 5 8410-2 ####[facility]ATORYCLIA [id number] [address] [place] RBC (Bld) [#/Vol] 2.89 10*6/uL Low 4.20-6.00 [facility] Comment on above: Order Comment: Speci men Type: BLOOD SPECIMENOrdering Facility: [facility] Address: [address] [place] [address] Performed By: #### 5 8410-2 ####[facility]ATORYCLIA [id number] [address] [place] [facility] WBC (Bld) [#/Vol] 9.03 10*3/uL Normal 3.70-11.00 [facility] Comment on above: Order Comment: Shira francia Type: BLOOD SPECIMENOrdering Facility: [facility] Address: [address] [place] [address] Performed By: #### 5 8410-2 ####[facility]PITALCLIA [id number] [address] BRAIN WO IVCONon 08-12-19 CT BRAIN WO IVCON Normal [facility] PT panel Coag (PPP)on 2021 INR Coag (PPP) [Relative time] 1.0 {INR} Normal 0.9-1.3 [facility] Comment on above: Order Comment: Shira feldman Type: BLOOD SPECIMENOrdering Facility: [facility] Address: [address] [place] [address] Result Comment: Yris min K Antagonist (VKA) Therapeutic Range: INR 2 to 3 (Target INR of 2.5)Note: For patients treated with VKA drugs, such as warfarin, the [employer] 2012 Guideline recommends [...] al. Chest 2012, 141:7S-47SNishimpatricia RA, et al. [facility] 2017, 70: 252-289 Performed By: #### 1 4979-9, 83919-5 ####[facility]ATORYCLIA [id number] [address] [facility] PT Coag (PPP) [Time] 11.4 s Normal 9.7-13.0 [facility] Comment on above: Order Comment: Speci men Type: BLOOD SPECIMENOrdering Facility: [facility] Address: [address] [place] [address] Performed By: #### 1 4979-9, 65686-9 ####[facility]ORYCLIA [id number] [address] [facility] THERAPY NTon 08-11-2021 THERAPY NT Normal [facility] US DVT LOWER BILon 2 US DVT LOWER RAINER Normal [facility] US DVT UPPER BILon 2 US DVT UPPER RAINER Normal [facility] aPTT PPPon 08-11-2021 aPTT Coag (PPP) [Time] 26.9 s Normal 23.0-32.4 [facility] Comment on above: Order Comment: Speci men Type: BLOOD SPECIMENOrdering Facility: [facility] Address: [address] [place] [address] Performed By: #### 1 4979-9, 70413-1 ####[facility]ATORYCLIA [id number] [address] [facility] Basic metabolic 2000 panelon 08-10-2021 Anion gap [Moles/Vol] 11 mmol/L Normal 9-18 [facility] Comment on above: Order Comment: Speci men Type: BLOOD SPECIMENOrdering Facility: [facility] Address: [address] [place] [address] Performed By: #### 2 4321-2 ####[facility]ATORYCLIA [id number] [address] [place] [facility] Calcium [Mass/Vol] 8.7 mg/dL Normal 8.5-10.2 [facility] Comment on above: Order Comment: Speci men Type: BLOOD SPECIMENOrdering Facility: [facility] Address: [address] [place] [address] Performed By: #### 2 4321-2 ####[facility]ORYCLIA [id number] [address] Chloride [Moles/Vol] 98 mmol/L Normal 97-105 [facility] Comment on above: Order Comment: Speci men Type: BLOOD SPECIMENOrdering Facility: [facility] Address: [address] [place] [address] Performed By: #### 2 4321-2 ####[facility]ORYCLIA [id number] [address] CO2 [Moles/Vol] 28 mmol/L Normal 22-30 [facility] Comment on above: Order Comment: Speci men Type: BLOOD SPECIMENOrdering Facility: [facility] Address: [address] [place] [address] Performed By: #### 2 4321-2 ####[facility]ORYCLIA [id number] [address] Creatinine [Mass/Vol] 0.59 mg/dL Low 0.73-1.22 [facility] Comment on above: Order Comment: Speci men Type: BLOOD SPECIMENOrdering Facility: [facility] Address: [address] [place] [address] Performed By: #### 2 4321-2 ####[facility]ORYCLIA [id number] [address] ESTIMATED GLOMERULAR FILTRATION RATE 105 mL/min/1.73m??? Normal >=60 [facility] Comment on above: Order Comment: Speci men Type: BLOOD SPECIMENOrdering Facility: [facility] Address: [address] [place] [address] Result Comment: Luzmaria mated Glomerular Filtration Rate [...] actual GFR. Performed By: #### 2 4321-2 ####[facility]ATORYCLIA [id number] [place] [address] [place] Glucose [Mass/Vol] 118 mg/dL High 74-99 [facility] Comment on above: Order Comment: Speci men Type: BLOOD SPECIMENOrdering Facility: [facility] Address: [address] [place] [address] Result Comment: The [place] [employer] (ADA) provides guidance for cutoff [...] Standards of Medical Care in Diabetes 2016, [employer]. Diabetes Care. 2016.39(Suppl 1). Performed By: #### 2 4321-2 ####[facility]ATORYCLIA [id number] [place] [address] [place] Potassium [Moles/Vol] 3.7 mmol/L Normal 3.7-5.1 [facility] Comment on above: Order Comment: Speci men Type: BLOOD SPECIMENOrdering Facility: [facility] Address: [address] [place] [address] Performed By: #### 2 4321-2 ####[facility]ORYCLIA [id number] [place] [address] [place] Sodium [Moles/Vol] 137 mmol/L Normal 136-144 [facility] Comment on above: Order Comment: Speci men Type: BLOOD SPECIMENOrdering Facility: [facility] Address: [address] [place] [address] Performed By: #### 2 4321-2 ####[facility]ATORYCLIA [id number] [place] [address] [place] Urea nitrogen [Mass/Vol] 23 mg/dL Normal 9-24 [facility] Comment on above: Order Comment: Speci men Type: BLOOD SPECIMENOrdering Facility: [facility] Address: [address] [place] [address] Performed By: #### 2 4321-2 ####[facility]ATORYCLIA [id number] [place] [address] [place] Anion gap [Moles/Vol] 17 mmol/L Normal 9-18 [facility] Comment on above: Order Comment: Speci men Type: BLOOD SPECIMENOrdering Facility: [facility] Address: [address] [place] [address] Performed By: #### 1 9123-9, 2777-1, 96229-3 ####[facility]ATORYCLIA [id number] [place] [address] [place] Calcium [Mass/Vol] 7.7 mg/dL Low 8.5-10.2 [facility] Comment on above: Order Comment: Speci men Type: BLOOD SPECIMENOrdering Facility: [facility] Address: [address] [place] [address] Performed By: #### 1 9123-9, 2777-1, 35961-0 ####[facility]ATORYCLIA [id number] [place] [address] [place] Chloride [Moles/Vol] 86 mmol/L Low 97-105 [facility] Comment on above: Order Comment: Speci men Type: BLOOD SPECIMENOrdering Facility: [facility] Address: [address] Performed By: #### 1 9123-9, 2777-1, 96778-1 ####[facility]ATORYCLIA [id number] [place] [address] [place] CO2 [Moles/Vol] 24 mmol/L Normal 22-30 [facility] Comment on above: Order Comment: Speci men Type: BLOOD SPECIMENOrdering Facility: [facility] Address: [address] [place] [address] Performed By: #### 1 9123-9, 2777-1, 27974-2 ####[facility]PITALCLIA [id number] [address] [place] [facility] Creatinine [Mass/Vol] 0.53 mg/dL Low 0.73-1.22 [facility] Comment on above: Order Comment: Speci men Type: BLOOD SPECIMENOrdering Facility: [facility] Address: [address] [address] Performed By: #### 1 9123-9, 2777-1, 31508-7 ####[facility]OSPITALIA [id number] [address] [facility] ESTIMATED GLOMERULAR FILTRATION RATE 108 mL/min/1.73m??? Normal >=60 [facility] Comment on above: Order Comment: Speccara feldman Type: BLOOD SPECIMENOrdering Facility: [facility] Address: [address] [address] Result Comment: Luzmaria mated Glomerular Filtration Rate [...] GFR. Performed By: #### 1 9123-9, 2777-1, 34302-8 ####[facility]ORYCLIA [id number] [address] [place] Glucose [Mass/Vol] 455 mg/dL High 74-99 [facility] Comment on above: Order Comment: Speci men Type: BLOOD SPECIMENOrdering Facility: [facility] Address: [address] Result Comment: The [place] [employer] (ADA) provides guidance for cutoff [...] Standards of Medical Care in Diabetes 2016, [place] [employer]. Diabetes Care. 2016.39(Suppl 1). Performed By: #### 1 9123-9, 2777-1, 29005-2 ####[facility]ATORYCLIA [id number] [place] [address] [place] Potassium [Moles/Vol] 3.4 mmol/L Low 3.7-5.1 [facility] Comment on above: Order Comment: Shira feldman Type: BLOOD SPECIMENOrdering Facility: [facility] Address: [address] [place] [address] Performed By: #### 1 9123-9, 2777-, 33088-6 ####[facility]PITALCLIA [id number] [address] [place] Sodium [Moles/Vol] 127 mmol/L Low 136-144 [facility] Comment on above: Order Comment: Shira feldman Type: BLOOD SPECIMENOrdering Facility: [facility] Address: [address] [place] [address] Performed By: #### 1 9123-9, 2777-, 04600-7 ####[facility]ATORYCLIA [id number] [place] [address] [place] Urea nitrogen [Mass/Vol] 21 mg/dL Normal 9-24 [facility] Comment on above: Order Comment: Johni francia Type: BLOOD SPECIMENOrdering Facility: [facility] Address: [address] [place] [address] Performed By: #### 1 9123-9, 2777-, 01946-6 ####[facility]ATORYCLIA [id number] [place] [address] [place] CASE MANAGEMon 08-10-2021 CASE MANAGEM Normal [facility] CBC W Auto Differential pane l (Bld)on 08-10-2021 Basophils (Bld) [#/Vol] 0.04 10*3/uL Normal <0.11 [facility] Comment on above: Order Comment: Speci men Type: BLOOD SPECIMENOrdering Facility: [facility] Address: [address] [place] [address] Performed By: #### 5 7021-8 ####[facility]ATORYCLIA [id number] [address] [place] Basophils/100 WBC (Bld) 0.4 % Normal [facility] Comment on above: Order Comment: Speci men Type: BLOOD SPECIMENOrdering Facility: [facility] Address: [address] [place] [address] Performed By: #### 5 7021-8 ####[facility]ATORYCLIA [id number] [address] [facility] Differential cell count method Nom (Bld) Auto Normal [facility] Comment on above: Order Comment: Speci men Type: BLOOD SPECIMENOrdering Facility: [facility] Address: [address] [place] [address] Performed By: #### 5 7021-8 ####[facility]ATORYCLIA [id number] [place] [address] [place] Eosinophils (Bld) [#/Vol] 0.11 10*3/uL Normal <0.46 [facility] Comment on above: Order Comment: Speci men Type: BLOOD SPECIMENOrdering Facility: [facility] Address: [address] [place] [address] Performed By: #### 5 7021-8 ####[facility]ATORYCLIA [id number] [address] [place] Eosinophils/100 WBC (Bld) 1.1 % Normal [facility] Comment on above: Order Comment: Speci men Type: BLOOD SPECIMENOrdering Facility: [facility] Address: [address] [place] [address] Performed By: #### 5 7021-8 ####[facility]ATORYCLIA [id number] [address] Erythrocyte distribution width (RBC) [Ratio] 17.2 % High 11.5-15.0 [facility] Comment on above: Order Comment: Speci men Type: BLOOD SPECIMENOrdering Facility: [facility] Address: [address] [place] [address] Performed By: #### 5 7021-8 ####[facility]ATORYCLIA [id number] [address] Hematocrit (Bld) [Volume fraction] 25.5 % Low 39.0-51.0 [facility] Comment on above: Order Comment: Speci men Type: BLOOD SPECIMENOrdering Facility: [facility] Address: [address] [place] [address] Performed By: #### 5 7021-8 ####[facility]ORYCLIA [id number] [address] Hemoglobin (Bld) [Mass/Vol] 7.9 g/dL Low 13.0-17.0 [facility] Comment on above: Order Comment: Speci men Type: BLOOD SPECIMENOrdering Facility: [facility] Address: [address] [place] [address] Performed By: #### 5 7021-8 ####[facility]ORYCLIA [id number] [address] IMMATURE GRAN % 0.4 % Normal [facility] Comment on above: Order Comment: Speci men Type: BLOOD SPECIMENOrdering Facility: [facility] Address: [address] [place] [address] Performed By: #### 5 7021-8 ####[facility]ATORYCLIA [id number] [address] IMMATURE GRAN ABS 0.04 k/uL Normal <0.10 [facility] Comment on above: Order Comment: Speci men Type: BLOOD SPECIMENOrdering Facility: [facility] Address: [address] [place] [address] Performed By: #### 5 7021-8 ####[facility]ATORYCLIA [id number] [address] [facility] Lymphocytes (Bld) [#/Vol] 1.66 10*3/uL Normal 1.00-4.00 [facility] Comment on above: Order Comment: Speci men Type: BLOOD SPECIMENOrdering Facility: [facility] Address: [address] [place] [address] Performed By: #### 5 7021-8 ####[facility]ORYCLIA [id number] [address] Lymphocytes/100 WBC (Bld) 16.2 % Normal [facility] Comment on above: Order Comment: Speci men Type: BLOOD SPECIMENOrdering Facility: [facility] Address: [address] [place] [address] Performed By: #### 5 7021-8 ####[facility]ATORYCLIA [id number] [address] [facility] MCH (RBC) [Entitic mass] 28.5 pg Normal 26.0-34.0 [facility] Comment on above: Order Comment: Speci men Type: BLOOD SPECIMENOrdering Facility: [facility] Address: [address] [place] [address] Performed By: #### 5 7021-8 ####[facility]ORYCLIA [id number] [address] [facility] MCHC (RBC) [Mass/Vol] 31.0 g/dL Normal 30.5-36.0 [facility] Comment on above: Order Comment: Speci men Type: BLOOD SPECIMENOrdering Facility: [facility] Address: [address] [place] [address] Performed By: #### 5 7021-8 ####[facility]ORYCLIA [id number] [address] MCV (RBC) [Entitic vol] 92.1 fL Normal 80.0-100.0 [facility] Comment on above: Order Comment: Speci men Type: BLOOD SPECIMENOrdering Facility: [facility] Address: [address] [place] [address] Performed By: #### 5 7021-8 ####[facility]ORYCLIA [id number] [address] [place] Monocytes (Bld) [#/Vol] 0.51 10*3/uL Normal <0.87 [facility] Comment on above: Order Comment: Speci men Type: BLOOD SPECIMENOrdering Facility: [facility] Address: [address] [place] [address] Performed By: #### 5 7021-8 ####[facility]ORYCLIA [id number] [address] [place] Monocytes/100 WBC (Bld) 5.0 % Normal [facility] Comment on above: Order Comment: Speci men Type: BLOOD SPECIMENOrdering Facility: [facility] Address: [address] [place] [address] Performed By: #### 5 7021-8 ####[facility]ORYCLIA [id number] [address] [place] Neutrophils (Bld) [#/Vol] 7.91 10*3/uL High 1.45-7.50 [facility] Comment on above: Order Comment: Speci men Type: BLOOD SPECIMENOrdering Facility: [facility] Address: [address] [place] [address] Performed By: #### 5 7021-8 ####[facility]ORYCLIA [id number] [address] [place] Neutrophils/100 WBC (Bld) 76.9 % Normal [facility] Comment on above: Order Comment: Speci men Type: BLOOD SPECIMENOrdering Facility: [facility] Address: [address] [place] [address] Performed By: #### 5 7021-8 ####[facility] LABORATORYCLIA [id number] [address] [place] Nucleated RBC (Bld) [#/Vol] 10*3/uL Normal <0.01 [facility] Comment on above: Order Comment: Speci men Type: BLOOD SPECIMENOrdering Facility: [facility] Address: [address] [place] [address] Performed By: #### 5 7021-8 ####[facility] LABORATORYCLIA [id number] [address] [place] Nucleated RBC/100 WBC (Bld) [Ratio] 0.0 /100 WBC Normal [facility] Comment on above: Order Comment: Speci men Type: BLOOD SPECIMENOrdering Facility: [facility] Address: [address] [place] [address] Performed By: #### 5 7021-8 ####[facility] LABORATORYCLIA [id number] [address] [place] Platelet mean volume (Bld) [Entitic vol] 10.3 fL Normal 9.0-12.7 [facility] Comment on above: Order Comment: Speci men Type: BLOOD SPECIMENOrdering Facility: [facility] Address: [address] [place] [address] Performed By: #### 5 7021-8 ####[facility] LABORATORYCLIA [id number] [address] [place] Platelets (Bld) [#/Vol] 152 10*3/uL Normal 150-400 [facility] Comment on above: Order Comment: Speci men Type: BLOOD SPECIMENOrdering Facility: [facility] Address: [address] [place] [address] Performed By: #### 5 7021-8 ####[facility] LABORATORYCLIA [id number] [address] [place] RBC (Bld) [#/Vol] 2.77 10*6/uL Low 4.20-6.00 [facility] Comment on above: Order Comment: Speci men Type: BLOOD SPECIMENOrdering Facility: [facility] Address: [address] [place] [address] Performed By: #### 5 7021-8 ####[facility] LABORATORYCLIA [id number] [address] WBC (Bld) [#/Vol] 10.27 10*3/uL Normal 3.70-11.00 [facility] Comment on above: Order Comment: Speci men Type: BLOOD SPECIMENOrdering Facility: [facility] Address: [address] [place] [address] Performed By: #### 5 7021-8 ####[facility] LABORATORYCLIA [id number] [address] Magnesium SerPl-mCncon 08-10 Magnesium [Mass/Vol] 1.8 mg/dL Normal 1.7-2.3 [facility] Comment on above: Order Comment: Speci men Type: BLOOD SPECIMENOrdering Facility: [facility] Address: [address] [place] [address] Performed By: #### 1 9123-9, 2777-1, 60224-6 ####[facility] LABORATORYCLIA [id number] [address] NURSING PROGon 08-10-2021 NURSING PROG Normal [facility] NURSING PROG Normal [facility] NUTRITIONon 08-10-2021 NUTRITION Normal [facility] Phosphate SerPl-mCncon 08-10 Phosphate [Mass/Vol] 3.7 mg/dL Normal 2.7-4.8 [facility] Comment on above: Order Comment: Speci men Type: BLOOD SPECIMENOrdering Facility: [facility] Address: [address] [place] [address] Performed By: #### 1 9123-9, 2777-1, 70172-3 ####[facility]ATORYCLIA [id number] [address] [place] ALLIED HEALTHon 08-09-2021 [...] Comment: Speci men Type: BLOOD SPECIMENOrdering Facility: [facility] Address: [address] [place] [address] Performed By: #### 2 4321-2, , 2776-05 ####[facility] LABORATORYCLIA [id number] [place] [address] [place] Calcium [Mass/Vol] 9.2 mg/dL Normal 8.5-10.2 [facility] Comment on above: Order Comment: Speci men Type: BLOOD SPECIMENOrdering Facility: [facility] Address: [address] [place] [address] Performed By: #### 2 4321-2, , 2776-05 ####[facility] LABORATORYCLIA [id number] [place] [address] [place] Chloride [Moles/Vol] 97 mmol/L Normal 97-105 [facility] Comment on above: Order Comment: Speci men Type: BLOOD SPECIMENOrdering Facility: [facility] Address: [address] [address] Performed By: #### 2 4321-2, , 2776-05 ####[facility] LABORATORYCLIA [id number] [place] [address] [place] CO2 [Moles/Vol] 30 mmol/L Normal 22-30 [facility] Comment on above: Order Comment: Speci men Type: BLOOD SPECIMENOrdering Facility: [facility] Address: [address] [address] Performed By: #### 2 4321-2, , 2776-05 ####[facility] HOSPITALIA [id number] [place] [address] [place] Creatinine [Mass/Vol] 0.51 mg/dL Low 0.73-1.22 [facility] Comment on above: Order Comment: Shira feldman Type: BLOOD SPECIMENOrdering Facility: [facility] Address: [address] [id number] Performed By: #### 2 4321-2, , 2776-05 ####[facility] HOSPITALIA [id number] [place] [id number] [facility] [place] ESTIMATED GLOMERULAR FILTRATION RATE 110 mL/min/1.73m??? Normal >=60 [facility] Comment on above: Order Comment: Shira feldman Type: BLOOD SPECIMENOrdering Facility: [facility] Address: [address] [place] [address] Result Comment: Luzmaria mated Glomerular Filtration Rate [...] 2 4321-2, , 2776-05 ####[facility] HOSPITALIA [id number] [address] [id number] [place] Glucose [Mass/Vol] 106 mg/dL High 74-99 [facility] Comment on above: Order Comment: Shira francia Type: BLOOD SPECIMENOrdering Facility: [facility] Address: [address] [phone] Result Comment: The [place] [employer] (ADA) provides guidance for cutoff [...] Standards of Medical Care in Diabetes 2016, [place] [employer]. Diabetes Care. 2016.39(Suppl 1). Performed By: #### 2 4321-2, , 2776-05 ####[facility] LABORATORYCLIA [id number] [address] STATES OF [facility] Potassium [Moles/Vol] 4.1 mmol/L Normal 3.7-5.1 [facility] Comment on above: Order Comment: Speci men Type: BLOOD SPECIMENOrdering Facility: [facility] Address: [address] [place] [address] Performed By: #### 2 4321-2, , 2776-05 ####[facility] HOSPITALCLIA [id number] [address] Sodium [Moles/Vol] 135 mmol/L Low 136-144 [facility] Comment on above: Order Comment: Speci francia Type: BLOOD SPECIMENOrdering Facility: [facility] Address: [address] [place] [address] Performed By: #### 2 4321-2, , 2776-05 ####[facility] LABORATORYCLIA [id number] [address] STATES [facility] Urea nitrogen [Mass/Vol] 26 mg/dL High 9-24 [facility] Comment on above: Order Comment: Speci men Type: BLOOD SPECIMENOrdering Facility: [facility] Address: [address] [place] [address] Performed By: #### 2 4321-2, , 2776-05 ####[facility] LABORATORYCLIA [id number] [address] [place] CBC W Auto Differential pane l (Bld)on 08-09-2021 Basophils (Bld) [#/Vol] 0.06 10*3/uL Normal <0.11 [facility] Comment on above: Order Comment: Speci men Type: BLOOD SPECIMENOrdering Facility: [facility] Address: [address] [place] [address] Performed By: #### 5 7021-8 ####[facility] LABORATORYCLIA [id number] [address] STATES [facility] Basophils/100 WBC (Bld) 0.5 % Normal [facility] Comment on above: Order Comment: Speci men Type: BLOOD SPECIMENOrdering Facility: [facility] Address: [address] [place] [address] Performed By: #### 5 7021-8 ####[facility]ORATORYCLIA [id number] [address] Differential cell count method Nom (Bld) Auto Normal [facility] Comment on above: Order Comment: Speci men Type: BLOOD SPECIMENOrdering Facility: [facility] Address: [address] [place] [address] Performed By: #### 5 7021-8 ####[facility] LABORATORYCLIA [id number] [address] Eosinophils (Bld) [#/Vol] 0.42 10*3/uL Normal <0.46 [facility] Comment on above: Order Comment: Speci men Type: BLOOD SPECIMENOrdering Facility: [facility] Address: [address] [place] [address] Performed By: #### 5 7021-8 ####[facility]ATORYCLIA [id number] [address] Eosinophils/100 WBC (Bld) 3.8 % Normal [facility] Comment on above: Order Comment: Speci men Type: BLOOD SPECIMENOrdering Facility: [facility] Address: [address] [place] [address] Performed By: #### 5 7021-8 ####[facility]ATORYCLIA [id number] [address] Erythrocyte distribution width (RBC) [Ratio] 17.6 % High 11.5-15.0 [facility] Comment on above: Order Comment: Speci men Type: BLOOD SPECIMENOrdering Facility: [facility] Address: [address] [place] [address] Performed By: #### 5 7021-8 ####[facility] LABORATORYCLIA [id number] [address] OF [facility] Hematocrit (Bld) [Volume fraction] 29.3 % Low 39.0-51.0 [facility] Comment on above: Order Comment: Speci men Type: BLOOD SPECIMENOrdering Facility: [facility] Address: [address] [place] [address] Performed By: #### 5 7021-8 ####[facility]ORATORYCLIA [id number] [address] [place] [facility] Hemoglobin (Bld) [Mass/Vol] 9.0 g/dL Low 13.0-17.0 [facility] Comment on above: Order Comment: Speci men Type: BLOOD SPECIMENOrdering Facility: [facility] Address: [address] [place] [address] Performed By: #### 5 7021-8 ####[facility] LABORATORYCLIA [id number] [address] STATES [place] [facility] IMMATURE GRAN % 0.5 % Normal [facility] Comment on above: Order Comment: Speci men Type: BLOOD SPECIMENOrdering Facility: [facility] Address: [address] [place] [address] Performed By: #### 5 7021-8 ####[facility] LABORATORYCLIA [id number] [address] IMMATURE GRAN ABS 0.05 k/uL Normal <0.10 [facility] Comment on above: Order Comment: Speci men Type: BLOOD SPECIMENOrdering Facility: [facility] Address: [address] [place] [address] Performed By: #### 5 7021-8 ####[facility]ORATORYCLIA [id number] [address] [place] Lymphocytes (Bld) [#/Vol] 2.00 10*3/uL Normal 1.00-4.00 [facility] Comment on above: Order Comment: Speci men Type: BLOOD SPECIMENOrdering Facility: [facility] Address: [address] [place] [address] Performed By: #### 5 7021-8 ####[facility] LABORATORYCLIA [id number] [address] Lymphocytes/100 WBC (Bld) 18.1 % Normal [facility] Comment on above: Order Comment: Speci men Type: BLOOD SPECIMENOrdering Facility: [facility] Address: [address] [place] [address] Performed By: #### 5 7021-8 ####[facility] LABORATORYCLIA [id number] [address] MCH (RBC) [Entitic mass] 28.1 pg Normal 26.0-34.0 [facility] Comment on above: Order Comment: Speci men Type: BLOOD SPECIMENOrdering Facility: [facility] Address: [address] [place] [address] Performed By: #### 5 7021-8 ####[facility]ORATORYCLIA [id number] [address] [place] MCHC (RBC) [Mass/Vol] 30.7 g/dL Normal 30.5-36.0 [facility] Comment on above: Order Comment: Speci men Type: BLOOD SPECIMENOrdering Facility: [facility] Address: [address] [place] [address] Performed By: #### 5 7021-8 ####[facility]ORATORYCLIA [id number] [address] [place] [facility] MCV (RBC) [Entitic vol] 91.6 fL Normal 80.0-100.0 [facility] Comment on above: Order Comment: Speci men Type: BLOOD SPECIMENOrdering Facility: [facility] Address: [address] [place] [address] Performed By: #### 5 7021-8 ####[facility]ATORYCLIA [id number] [address] [place] Monocytes (Bld) [#/Vol] 0.68 10*3/uL Normal <0.87 [facility] Comment on above: Order Comment: Speci men Type: BLOOD SPECIMENOrdering Facility: [facility] Address: [address] [place] [address] Performed By: #### 5 7021-8 ####[facility]ORATORYCLIA [id number] [address] [place] Monocytes/100 WBC (Bld) 6.2 % Normal [facility] Comment on above: Order Comment: Speci men Type: BLOOD SPECIMENOrdering Facility: [facility] Address: [address] [place] [address] Performed By: #### 5 7021-8 ####[facility]ORATORYCLIA [id number] [address] [place] Neutrophils (Bld) [#/Vol] 7.82 10*3/uL High 1.45-7.50 [facility] Comment on above: Order Comment: Speci men Type: BLOOD SPECIMENOrdering Facility: [facility] Address: [address] [place] [address] Performed By: #### 5 7021-8 ####[facility]ORATORYCLIA [id number] [address] [place] Neutrophils/100 WBC (Bld) 70.9 % Normal [facility] Comment on above: Order Comment: Speci men Type: BLOOD SPECIMENOrdering Facility: [facility] Address: [address] [place] [address] Performed By: #### 5 7021-8 ####[facility]ORATORYCLIA [id number] [place] [address] [place] Nucleated RBC (Bld) [#/Vol] 10*3/uL Normal <0.01 [facility] Comment on above: Order Comment: Speci men Type: BLOOD SPECIMENOrdering Facility: [facility] Address: [address] [place] [address] Performed By: #### 5 7021-8 ####[facility] LABORATORYCLIA [id number] [address] Nucleated RBC/100 WBC (Bld) [Ratio] 0.0 /100 WBC Normal [facility] Comment on above: Order Comment: Speci men Type: BLOOD SPECIMENOrdering Facility: [facility] Address: [address] [place] [address] Performed By: #### 5 7021-8 ####[facility] LABORATORYCLIA [id number] [address] [place] Platelet mean volume (Bld) [Entitic vol] 10.1 fL Normal 9.0-12.7 [facility] Comment on above: Order Comment: Speci men Type: BLOOD SPECIMENOrdering Facility: [facility] Address: [address] [place], [place] [address] Performed By: #### 5 7021-8 ####[facility] LABORATORYCLIA [id number] [address] [place] Platelets (Bld) [#/Vol] 160 10*3/uL Normal 150-400 [facility] Comment on above: Order Comment: Speci men Type: BLOOD SPECIMENOrdering Facility: [facility] Address: [address] [place], [place] [address] Performed By: #### 5 7021-8 ####[facility] LABORATORYCLIA [id number] [address] [place] RBC (Bld) [#/Vol] 3.20 10*6/uL Low 4.20-6.00 [facility] Comment on above: Order Comment: Speci men Type: BLOOD SPECIMENOrdering Facility: [facility] Address: [address] [place], [place] [address] Performed By: #### 5 7021-8 ####[facility]ORATORYCLIA [id number] [place] [address] [place] WBC (Bld) [#/Vol] 11.03 10*3/uL High 3.70-11.00 [facility] Comment on above: Order Comment: Speci men Type: BLOOD SPECIMENOrdering Facility: [facility] Address: [address] [place] [address] Performed By: #### 5 7021-8 ####[facility] LABORATORYCLIA [id number] [place] [address] [place] CONSULT PROGon 08-09-2021 CONSULT PROG Normal [facility] CT BRAIN WO IVCONon 08-10-19 CT BRAIN WO IVCON Normal [facility] CT BRAIN WO IVCON Normal [facility] Magnesium SerPl-mCncon 08-09 Magnesium [Mass/Vol] 2.0 mg/dL Normal 1.7-2.3 [facility] Comment on above: Order Comment: Speci men Type: BLOOD SPECIMENOrdering Facility: [facility] Address: [address] [place] [address] Performed By: #### 2 4321-2, 82029-8, 2777-1 ####[facility]ORATORYCLIA [id number] [address] [place] NURSING PROGon 08-09-2021 NURSING PROG Normal [facility] OPERATIVE NOon 08-09-2021 OPERATIVE NO Normal [facility] PT panel Coag (PPP)on 2021 INR Coag (PPP) [Relative time] 1.1 {INR} Normal 0.9-1.3 [facility] Comment on above: Order Comment: Speci men Type: BLOOD SPECIMENOrdering Facility: [facility] Address: [address] [place], [place] [address] Result Comment: Yris min K Antagonist (VKA) Therapeutic Range: INR 2 to 3 (Target INR of 2.5)Note: For patients treated with VKA drugs, such as warfarin, the [place] [employer] 2012 Guideline recommends [...] al. Chest 2012, 141:7S-47SNishimpatricia RA, et al. [facility] 2017, 70: 252-289 Performed By: #### 3 4528-0, 53450-5 ####[facility]ORATORYCLIA [id number] [place] [address] [place] PT Coag (PPP) [Time] 11.7 s Normal 9.7-13.0 [facility] Comment on above: Order Comment: Speci men Type: BLOOD SPECIMENOrdering Facility: [facility] Address: [address] [place] [address] Performed By: #### 3 4528-0, 02141-1 ####[facility]ORATORYCLIA [id number] [place] [address] [place] Phosphate SerPl-mCncon 08-09 Phosphate [Mass/Vol] 4.0 mg/dL Normal 2.7-4.8 [facility] Comment on above: Order Comment: Speci men Type: BLOOD SPECIMENOrdering Facility: [facility] Address: [address] [place] [address] Performed By: #### 2 4321-2, 68314-7, 2777-1 ####[facility]ATORYCLIA [id number] [address] [place] THERAPY NTon 08-09-2021 THERAPY NT Normal [facility] THERAPY NT Normal [facility] TYPE AND SCREENon 08-09-2021 ABO O Normal [facility] Comment on above: Order Comment: Speci men Type: BLOOD SPECIMENOrdering Facility: [facility] Address: [address] [place] [address] Performed By: #### T SCR ####[facility] BLOOD BANKCLIA [id number] [address] HISTORICAL AB SCR STATUS Negative Normal [facility] Comment on above: Order Comment: Speci men Type: BLOOD SPECIMENOrdering Facility: [facility] Address: [address] [place] [address] Performed By: #### T SCR ####[facility] BLOOD BANKCLIA [id number] [address] Rh Nom (Bld) Positive Normal [facility] Comment on above: Order Comment: Speci men Type: BLOOD SPECIMENOrdering Facility: [facility] Address: [address] [place] [address] Performed By: #### T SCR ####[facility] BLOOD BANKCLIA [id number] [address] TYPE AND SCREEN EXPIRATION 08/12/2021 23:59 Normal [facility] Comment on above: Order Comment: Speci men Type: BLOOD SPECIMENOrdering Facility: [facility] Address: [address] [place] [address] Performed By: #### T SCR ####[facility] BLOOD BANKCLIA [id number] [address] [place] XR ABD 2V SUPINE [...] Coag (PPP) [Time] 26.8 s Normal 23.0-32.4 [facility] Comment on above: Order Comment: Speci men Type: BLOOD SPECIMENOrdering Facility: [facility] Address: [address] [place] [address] Performed By: #### 3 4528-0, 26883-8 ####[facility] LABORATORYCLIA [id number] [address] OF [facility] CASE MANAGEMon 08-08-2021 CASE MANAGEM Normal [facility] CBC W Auto Differential pane l (Bld)on 08-08-2021 Basophils (Bld) [#/Vol] 0.05 10*3/uL Normal <0.11 [facility] Comment on above: Order Comment: Speci men Type: BLOOD SPECIMENOrdering Facility: [facility] Address: [address] [place] [address] Performed By: #### 5 7021-8 ####[facility] LABORATORYCLIA [id number] [address] STATES [facility] Basophils/100 WBC (Bld) 0.5 % Normal [facility] Comment on above: Order Comment: Speci men Type: BLOOD SPECIMENOrdering Facility: [facility] Address: [address] [place] [address] Performed By: #### 5 7021-8 ####[facility] LABORATORYCLIA [id number] [address] [place] [facility] Differential cell count method Nom (Bld) Auto Normal [facility] Comment on above: Order Comment: Speci men Type: BLOOD SPECIMENOrdering Facility: [facility] Address: [address] [place] [address] Performed By: #### 5 7021-8 ####[facility] LABORATORYCLIA [id number] [address] [place] Eosinophils (Bld) [#/Vol] 0.17 10*3/uL Normal <0.46 [facility] Comment on above: Order Comment: Speci men Type: BLOOD SPECIMENOrdering Facility: [facility] Address: [address] [address] Performed By: #### 5 7021-8 ####[facility] LABORATORYCLIA [id number] [address] STATES [facility] Eosinophils/100 WBC (Bld) 1.6 % Normal [facility] Comment on above: Order Comment: Speci men Type: BLOOD SPECIMENOrdering Facility: [facility] Address: [address] [place] [address] Performed By: #### 5 7021-8 ####[facility] LABORATORYCLIA [id number] [address] [place] Erythrocyte distribution width (RBC) [Ratio] 17.8 % High 11.5-15.0 [facility] Comment on above: Order Comment: Speci men Type: BLOOD SPECIMENOrdering Facility: [facility] Address: [address] [place] [address] Performed By: #### 5 7021-8 ####[facility] LABORATORYCLIA [id number] [address] Hematocrit (Bld) [Volume fraction] 29.6 % Low 39.0-51.0 [facility] Comment on above: Order Comment: Speci men Type: BLOOD SPECIMENOrdering Facility: [facility] Address: [address] [place] [address] Performed By: #### 5 7021-8 ####[facility] LABORATORYCLIA [id number] [address] [place] Hemoglobin (Bld) [Mass/Vol] 9.0 g/dL Low 13.0-17.0 [facility] Comment on above: Order Comment: Speci men Type: BLOOD SPECIMENOrdering Facility: [facility] Address: [address] [place] [address] Performed By: #### 5 7021-8 ####[facility] LABORATORYCLIA [id number] [address] [place] IMMATURE GRAN % 0.5 % Normal [facility] Comment on above: Order Comment: Speci men Type: BLOOD SPECIMENOrdering Facility: [facility] Address: [address] [place] [address] Performed By: #### 5 7021-8 ####[facility] LABORATORYCLIA [id number] [address] [place] [facility] IMMATURE GRAN ABS 0.05 k/uL Normal <0.10 [facility] Comment on above: Order Comment: Speci men Type: BLOOD SPECIMENOrdering Facility: [facility] Address: [address] [place] [address] Performed By: #### 5 7021-8 ####[facility] LABORATORYCLIA [id number] [address] Lymphocytes (Bld) [#/Vol] 1.93 10*3/uL Normal 1.00-4.00 [facility] Comment on above: Order Comment: Speci men Type: BLOOD SPECIMENOrdering Facility: [facility] Address: [address] [place] [address] Performed By: #### 5 7021-8 ####[facility] LABORATORYCLIA [id number] [address] Lymphocytes/100 WBC (Bld) 18.2 % Normal [facility] Comment on above: Order Comment: Speci men Type: BLOOD SPECIMENOrdering Facility: [facility] Address: [address] [place] [address] Performed By: #### 5 7021-8 ####[facility] LABORATORYCLIA [id number] [place] [facility] MCH (RBC) [Entitic mass] 28.1 pg Normal 26.0-34.0 [facility] [facility] Comment on above: Order Comment: Speci men Type: BLOOD SPECIMENOrdering Facility: [facility] Address: [address] [place] [address] Performed By: #### 5 7021-8 ####[facility] LABORATORYCLIA [id number] [address] MCHC (RBC) [Mass/Vol] 30.4 g/dL Low 30.5-36.0 [facility] Comment on above: Order Comment: Speci men Type: BLOOD SPECIMENOrdering Facility: [facility] Address: [address] [place] [address] Performed By: #### 5 7021-8 ####[facility]ORYCLIA [id number] [address] OF [facility] MCV (RBC) [Entitic vol] 92.5 fL Normal 80.0-100.0 [facility] Comment on above: Order Comment: Speci men Type: BLOOD SPECIMENOrdering Facility: [facility] Address: [address] [place] [address] Performed By: #### 5 7021-8 ####[facility]ORATORYCLIA [id number] [address] STATES [facility] Monocytes (Bld) [#/Vol] 0.75 10*3/uL Normal <0.87 [facility] Comment on above: Order Comment: Speci men Type: BLOOD SPECIMENOrdering Facility: [facility] Address: [address] [place] [address] Performed By: #### 5 7021-8 ####[facility]ORYCLIA [id number] [address] Monocytes/100 WBC (Bld) 7.1 % Normal [facility] Comment on above: Order Comment: Speci men Type: BLOOD SPECIMENOrdering Facility: [facility] Address: [address] [place] [address] Performed By: #### 5 7021-8 ####[facility]ATORYCLIA [id number] [address] [place] Neutrophils (Bld) [#/Vol] 7.65 10*3/uL High 1.45-7.50 [facility] Comment on above: Order Comment: Speci men Type: BLOOD SPECIMENOrdering Facility: [facility] Address: [address] [place] [address] Performed By: #### 5 7021-8 ####[facility]ATORYCLIA [id number] [address] Neutrophils/100 WBC (Bld) 72.1 % Normal [facility] Comment on above: Order Comment: Speci men Type: BLOOD SPECIMENOrdering Facility: [facility] Address: [address] [place] [address] Performed By: #### 5 7021-8 ####[facility]ATORYCLIA [id number] [address] [place] Nucleated RBC (Bld) [#/Vol] 10*3/uL Normal <0.01 [facility] Comment on above: Order Comment: Speci men Type: BLOOD SPECIMENOrdering Facility: [facility] Address: [address] [place] [address] Performed By: #### 5 7021-8 ####[facility]ORYCLIA [id number] [address] Nucleated RBC/100 WBC (Bld) [Ratio] 0.0 /100 WBC Normal [facility] Comment on above: Order Comment: Speci men Type: BLOOD SPECIMENOrdering Facility: [facility] Address: [address] [place] [address] Performed By: #### 5 7021-8 ####[facility]ORYCLIA [id number] [address] [place] Platelet mean volume (Bld) [Entitic vol] 9.8 fL Normal 9.0-12.7 [facility] Comment on above: Order Comment: Speci men Type: BLOOD SPECIMENOrdering Facility: [facility] Address: [address] [place] [address] Performed By: #### 5 7021-8 ####[facility]ATORYCLIA [id number] [address] [place] Platelets (Bld) [#/Vol] 175 10*3/uL Normal 150-400 [facility] Comment on above: Order Comment: Speci men Type: BLOOD SPECIMENOrdering Facility: [facility] Address: [address] [place] [address] Performed By: #### 5 7021-8 ####[facility]ORYCLIA [id number] [address] RBC (Bld) [#/Vol] 3.20 10*6/uL Low 4.20-6.00 [facility] Comment on above: Order Comment: Speci men Type: BLOOD SPECIMENOrdering Facility: [facility] Address: [address] [place] [address] Performed By: #### 5 7021-8 ####[facility]ORYCLIA [id number] [address] WBC (Bld) [#/Vol] 10.60 10*3/uL Normal 3.70-11.00 [facility] Comment on above: Order Comment: Speci men Type: BLOOD SPECIMENOrdering Facility: [facility] Address: [address] [place] [address] Performed By: #### 5 7021-8 ####[facility]ATORYCLIA [id number] [address] BRAIN WO IVCONon 08-09-19 CT BRAIN WO IVCON Normal [facility] NURSING PROGon 08-08-2021 NURSING PROG Normal [facility] Prealbumin [Mass/Vol]on Prealbumin Nephelometry [Mass/Vol] 29 mg/dL Normal 17-36 [facility] Comment on above: Order Comment: Speci men Type: BLOOD SPECIMENOrdering Facility: [facility] Address: [address] [place] [address] Performed By: #### 1 4338-8 ####[facility]ATORYCLIA [id number] [address] SARS-CoV-2 RNA Resp Ql MEGAN+p robeon 08-08-2021 SARS-CoV-2 (COVID-19) RNA MEGAN+probe Ql (Resp) COVID 19 RESULT: SARS-CoV-2 (Agent of COVID-19) Not Detected by RT-PCR or equivalent method. This test has been authorized by FDA under an Emergency Use Authorization (EUA). Normal [facility] Comment on above: Performed By: #### 9 4500-6 ####[facility]ATORYCLIA [id number] [place] [address] [place] ALLIED HEALTHon 08-07-2021 ALLIED HEALTH Normal [facility] Basic metabolic 2000 panelon 08-07-2021 Anion gap [Moles/Vol] 9 mmol/L Normal 9-18 [facility] Comment on above: Order Comment: Speci men Type: BLOOD SPECIMENOrdering Facility: [facility] Address: [address] [place] [address] Performed By: #### 2 4321-2, 2776-, , [facility] ####[facility]ATORYCLIA [id number] [place] [address] [place] Calcium [Mass/Vol] 9.4 mg/dL Normal 8.5-10.2 [facility] Comment on above: Order Comment: Speci men Type: BLOOD SPECIMENOrdering Facility: [facility] Address: [address] [place] [address] Performed By: #### 2 4321-2, 2776-1, , HFP ####[facility]ORATORYCLIA [id number] [place] [address] [place] Chloride [Moles/Vol] 98 mmol/L Normal 97-105 [facility] Comment on above: Order Comment: Speci men Type: BLOOD SPECIMENOrdering Facility: [facility] Address: [address] [place] [address] Performed By: #### 2 4321-2, 2776-, , HFP ####[facility]ATORYCLIA [id number] [place] [address] [place] CO2 [Moles/Vol] 29 mmol/L Normal 22-30 [facility] Comment on above: Order Comment: Speci men Type: BLOOD SPECIMENOrdering Facility: [facility] Address: [address] [place], [place] [address] Performed By: #### 2 4321-2, 277-, , [facility] ####[facility]ORATORYCLIA [id number] [place] [address] [place] Creatinine [Mass/Vol] 0.67 mg/dL Low 0.73-1.22 [facility] Comment on above: Order Comment: Speci men Type: BLOOD SPECIMENOrdering Facility: [facility] Address: [address] [place], [place] [address] Performed By: #### 2 4321-2, 2776-05, , [facility] ####[facility] HOSPITALCLIA [id number] [address] [place] ESTIMATED GLOMERULAR FILTRATION RATE 101 mL/min/1.73m??? Normal >=60 [facility] Comment on above: Order Comment: Speci men Type: BLOOD SPECIMENOrdering Facility: [facility] Address: [address] [place] [address] Result Comment: Luzmaria mated Glomerular Filtration Rate [...] Performed By: #### 2 4321-2, 2776-05, , [facility] ####[facility]ATORYCLIA [id number] [place] [address] [place] Glucose [Mass/Vol] 117 mg/dL High 74-99 [facility] Comment on above: Order Comment: Speci men Type: BLOOD SPECIMENOrdering Facility: [facility] Address: [address] [place], [place] [address] Result Comment: The [place] Diabetes Association (ADA) provides guidance for cutoff [...] Standards of Medical Care in Diabetes 2016, [place] [employer]. Diabetes Care. 2016.39(Suppl 1). Performed By: #### 2 4321-2, 2776-, , [facility] ####[facility]ORATORYCLIA [id number] [place] [address] [place] Potassium [Moles/Vol] 4.1 mmol/L Normal 3.7-5.1 [facility] Comment on above: Order Comment: Shira feldman Type: BLOOD SPECIMENOrdering Facility: [facility] Address: [address] [address] Performed By: #### 2 4321-2, 2776-05, , [facility] ####[facility] HOSPITALCLIA [id number] [place] [address] [place] Sodium [Moles/Vol] 136 mmol/L Normal 136-144 [facility] Comment on above: Order Comment: Shira feldman Type: BLOOD SPECIMENOrdering Facility: [facility] Address: [address] Performed By: #### 2 4321-2, 2776-05, , [facility] ####[facility]ORATORYCLIA [id number] [place] [address] [place] Urea nitrogen [Mass/Vol] 31 mg/dL High 9-24 [facility] Comment on above: Order Comment: Johni men Type: BLOOD SPECIMENOrdering Facility: [facility] Address: [address] Performed By: #### 2 4321-2, 2776-05, , [facility] ####[facility]ORATORYCLIA [id number] [place] [address] [place] CBC W Auto Differential pane l (Bld)on 08-07-2021 Basophils (Bld) [#/Vol] 0.03 10*3/uL Normal <0.11 [facility] Comment on above: Order Comment: Speci men Type: BLOOD SPECIMENOrdering Facility: [facility] Address: [address] [place] [address] Performed By: #### 5 7021-8 ####[facility]ORATORYCLIA [id number] [place] [address] [place] Basophils/100 WBC (Bld) 0.3 % Normal [facility] Comment on above: Order Comment: Speci men Type: BLOOD SPECIMENOrdering Facility: [facility] Address: [address] [place] [address] Performed By: #### 5 7021-8 ####[facility]ORATORYCLIA [id number] [address] [place] Differential cell count method Nom (Bld) Auto Normal [facility] Comment on above: Order Comment: Speci men Type: BLOOD SPECIMENOrdering Facility: [facility] Address: [address] [place] [address] Performed By: #### 5 7021-8 ####[facility]ATORYCLIA [id number] [place] [address] [place] Eosinophils (Bld) [#/Vol] 0.16 10*3/uL Normal <0.46 [facility] Comment on above: Order Comment: Speci men Type: BLOOD SPECIMENOrdering Facility: [facility] Address: [address] [place] [address] Performed By: #### 5 7021-8 ####[facility]ATORYCLIA [id number] [address] [place] Eosinophils/100 WBC (Bld) 1.6 % Normal [facility] Comment on above: Order Comment: Speci men Type: BLOOD SPECIMENOrdering Facility: [facility] Address: [address] [place] [address] Performed By: #### 5 7021-8 ####[facility]ATORYCLIA [id number] [address] Erythrocyte distribution width (RBC) [Ratio] 18.1 % High 11.5-15.0 [facility] Comment on above: Order Comment: Speci men Type: BLOOD SPECIMENOrdering Facility: [facility] Address: [address] [place] [address] Performed By: #### 5 7021-8 ####[facility]ATORYCLIA [id number] [address] Hematocrit (Bld) [Volume fraction] 30.6 % Low 39.0-51.0 [facility] Comment on above: Order Comment: Speci men Type: BLOOD SPECIMENOrdering Facility: [facility] Address: [address] [place] [address] Performed By: #### 5 7021-8 ####[facility]ATORYCLIA [id number] [address] Hemoglobin (Bld) [Mass/Vol] 9.4 g/dL Low 13.0-17.0 [facility] Comment on above: Order Comment: Speci men Type: BLOOD SPECIMENOrdering Facility: [facility] Address: [address] [place] [address] Performed By: #### 5 7021-8 ####[facility]ATORYCLIA [id number] [address] IMMATURE GRAN % 0.4 % Normal [facility] Comment on above: Order Comment: Speci men Type: BLOOD SPECIMENOrdering Facility: [facility] Address: [address] [place] [address] Performed By: #### 5 7021-8 ####[facility]ATORYCLIA [id number] [address] IMMATURE GRAN ABS 0.04 k/uL Normal <0.10 [facility] Comment on above: Order Comment: Speci men Type: BLOOD SPECIMENOrdering Facility: [facility] Address: [address] [place] [address] Performed By: #### 5 7021-8 ####[facility]ATORYCLIA [id number] [address] Lymphocytes (Bld) [#/Vol] 2.05 10*3/uL Normal 1.00-4.00 [facility] Comment on above: Order Comment: Speci men Type: BLOOD SPECIMENOrdering Facility: [facility] Address: [address] [place] [address] Performed By: #### 5 7021-8 ####[facility]ATORYCLIA [id number] [address] Lymphocytes/100 WBC (Bld) 20.2 % Normal [facility] Comment on above: Order Comment: Speci men Type: BLOOD SPECIMENOrdering Facility: [facility] Address: [address] [place] [address] Performed By: #### 5 7021-8 ####[facility]ORATORYCLIA [id number] [address] STATES OF [facility] MCH (RBC) [Entitic mass] 28.8 pg Normal 26.0-34.0 [facility] Comment on above: Order Comment: Speci men Type: BLOOD SPECIMENOrdering Facility: [facility] Address: [address] [place] [address] Performed By: #### 5 7021-8 ####[facility]ATORYCLIA [id number] [address] STATES [facility] MCHC (RBC) [Mass/Vol] 30.7 g/dL Normal 30.5-36.0 [facility] Comment on above: Order Comment: Speci men Type: BLOOD SPECIMENOrdering Facility: [facility] Address: [address] [place] [address] Performed By: #### 5 7021-8 ####[facility]ORATORYCLIA [id number] [place] [address] [place] MCV (RBC) [Entitic vol] 93.9 fL Normal 80.0-100.0 [facility] Comment on above: Order Comment: Speci men Type: BLOOD SPECIMENOrdering Facility: [facility] Address: [address] [place] [address] Performed By: #### 5 7021-8 ####[facility]ATORYCLIA [id number] [place] [address] [place] Monocytes (Bld) [#/Vol] 0.64 10*3/uL Normal <0.87 [facility] Comment on above: Order Comment: Speci men Type: BLOOD SPECIMENOrdering Facility: [facility] Address: [address] [place] [address] Performed By: #### 5 7021-8 ####[facility]ATORYCLIA [id number] [address] [place] Monocytes/100 WBC (Bld) 6.3 % Normal [facility] Comment on above: Order Comment: Speci men Type: BLOOD SPECIMENOrdering Facility: [facility] Address: [address] [place] [address] Performed By: #### 5 7021-8 ####[facility]ORATORYCLIA [id number] [place] [address] [place] Neutrophils (Bld) [#/Vol] 7.22 10*3/uL Normal 1.45-7.50 [facility] Comment on above: Order Comment: Speci men Type: BLOOD SPECIMENOrdering Facility: [facility] Address: [address] [place] [address] Performed By: #### 5 7021-8 ####[facility]ATORYCLIA [id number] [address] [place] Neutrophils/100 WBC (Bld) 71.2 % Normal [facility] Comment on above: Order Comment: Speci men Type: BLOOD SPECIMENOrdering Facility: [facility] Address: [address] [address] Performed By: #### 5 7021-8 ####[facility]ATORYCLIA [id number] [address] Nucleated RBC (Bld) [#/Vol] 10*3/uL Normal <0.01 [facility] Comment on above: Order Comment: Speci men Type: BLOOD SPECIMENOrdering Facility: [facility] Address: [address] [place] [address] Performed By: #### 5 7021-8 ####[facility]ATORYCLIA [id number] [address] Nucleated RBC/100 WBC (Bld) [Ratio] 0.0 /100 WBC Normal [facility] Comment on above: Order Comment: Speci men Type: BLOOD SPECIMENOrdering Facility: [facility] Address: [address] [place] [address] Performed By: #### 5 7021-8 ####[facility]ATORYCLIA [id number] [address] [place] Platelet mean volume (Bld) [Entitic vol] 9.9 fL Normal 9.0-12.7 [facility] Comment on above: Order Comment: Speci men Type: BLOOD SPECIMENOrdering Facility: [facility] Address: [address] [place] [address] Performed By: #### 5 7021-8 ####[facility]ATORYCLIA [id number] [address] Platelets (Bld) [#/Vol] 227 10*3/uL Normal 150-400 [facility] Comment on above: Order Comment: Speci men Type: BLOOD SPECIMENOrdering Facility: [facility] Address: [address] [place] [address] Performed By: #### 5 7021-8 ####[facility]ORYCLIA [id number] [address] [place] RBC (Bld) [#/Vol] 3.26 10*6/uL Low 4.20-6.00 [facility] Comment on above: Order Comment: Speci men Type: BLOOD SPECIMENOrdering Facility: [facility] Address: [address] [place] [address] Performed By: #### 5 7021-8 ####[facility]ORYCLIA [id number] [address] OF [facility] WBC (Bld) [#/Vol] 10.14 10*3/uL Normal 3.70-11.00 [facility] Comment on above: Order Comment: Speci men Type: BLOOD SPECIMENOrdering Facility: [facility] Address: [address] [place] [address] Performed By: #### 5 7021-8 ####[facility]ATORYCLIA [id number] [address] BRAIN WO IVCONon 08-08-19 CT BRAIN WO IVCON Normal [facility] HEPATIC FUNCTION PNLon 08-07 Albumin [Mass/Vol] 3.6 g/dL Low 3.9-4.9 [facility] Comment on above: Order Comment: Speci men Type: BLOOD SPECIMENOrdering Facility: [facility] Address: [address] [place] [address] Performed By: #### 2 4321-2, 277-, , HFP ####[facility]ORATORYCLIA [id number] [address] [place] [facility] ALP [Catalytic activity/Vol] 124 U/L High 38-113 [facility] Comment on above: Order Comment: Speci men Type: BLOOD SPECIMENOrdering Facility: [facility] Address: [address] [place] [address] Performed By: #### 2 4321-2, 277-1, , HFP ####[facility]ATORYCLIA [id number] [address] OF [facility] ALT With P-5'-P [Catalytic activity/Vol] 29 U/L Normal 10-54 [facility] Comment on above: Order Comment: Speci men Type: BLOOD SPECIMENOrdering Facility: [facility] Address: [address] [place] [address] Performed By: #### 2 4321-2, 2776-05, , HFP ####[facility]ATORYCLIA [id number] [address] [place] AST With P-5'-P [Catalytic activity/Vol] 18 U/L Normal 14-40 [facility] Comment on above: Order Comment: Speci men Type: BLOOD SPECIMENOrdering Facility: [facility] Address: [address] [place] [address] Performed By: #### 2 4321-2, 2776-05, , HFP ####[facility]ATORYCLIA [id number] [address] [place] Bilirubin [Mass/Vol] 0.3 mg/dL Normal 0.2-1.3 [facility] Comment on above: Order Comment: Speci men Type: BLOOD SPECIMENOrdering Facility: [facility] Address: [address] [place] [address] Performed By: #### 2 4321-2, 2776-05, , HFP ####[facility]ATORYCLIA [id number] [address] [place] Bilirubin.conjugated [Mass/Vol] mg/dL Normal <0.2 [facility] Comment on above: Order Comment: Speci men Type: BLOOD SPECIMENOrdering Facility: [facility] Address: [address] [place], [place] [address] Performed By: #### 2 4321-2, 2776-05, , HFP ####[facility]ATORYCLIA [id number] [address] [place] Protein [Mass/Vol] 6.4 g/dL Normal 6.3-8.0 [facility] Comment on above: Order Comment: Speci men Type: BLOOD SPECIMENOrdering Facility: [facility] Address: [address] [place], [place] [address] Performed By: #### 2 4321-2, 2776-05, , HFP ####[facility]ATORYCLIA [id number] [address] [place] Magnesium SerPl-mCncon 08-07 Magnesium [Mass/Vol] 2.3 mg/dL Normal 1.7-2.3 [facility] Comment on above: Order Comment: Speci men Type: BLOOD SPECIMENOrdering Facility: [facility] Address: [address] [place], [place] [address] Performed By: #### 2 4321-2, 2776-05, , HFP ####[facility]ORYCLIA [id number] [address] [place] NURSING PROGon 08-07-2021 NURSING PROG Normal [facility] Phosphate SerPl-mCncon 08-07 Phosphate [Mass/Vol] 3.5 mg/dL Normal 2.7-4.8 [facility] Comment on above: Order Comment: Speci men Type: BLOOD SPECIMENOrdering Facility: [facility] Address: [address] [place] [address] Performed By: #### 2 4321-2, 2776-05, , HFP ####[facility]ORYCLIA [id number] [address] [place] ANES POSTPROC EVALon 022 ANES POSTPROC EVAL Normal [facility] Basic metabolic 2000 panelon 08-06-2021 Anion gap [Moles/Vol] 11 mmol/L Normal 9-18 [facility] Comment on above: Order Comment: Speci men Type: BLOOD SPECIMENOrdering Facility: [facility] Address: [address] [place], [place] [address] Performed By: #### 2 4321-2, 2776-05, ####[facility]ORYCLIA [id number] [place] [address] [place] Calcium [Mass/Vol] 8.2 mg/dL Low 8.5-10.2 [facility] Comment on above: Order Comment: Speci men Type: BLOOD SPECIMENOrdering Facility: [facility] Address: [address] [place] [address] Performed By: #### 2 4321-2, 2776-05, ####[facility]ORYCLIA [id number] [place] [address] [place] Chloride [Moles/Vol] 100 mmol/L Normal 97-105 [facility] Comment on above: Order Comment: Speci men Type: BLOOD SPECIMENOrdering Facility: [facility] Address: [address] [place] [address] Performed By: #### 2 4321-2, 2776-05, ####[facility] LABORATORYCLIA [id number] [place] [facility] CO2 [Moles/Vol] 23 mmol/L Normal 22-30 [facility] Comment on above: Order Comment: Speci men Type: BLOOD SPECIMENOrdering Facility: [facility] Address: [address] [place] [address] Performed By: #### 2 4321-2, 2776-05, ####[facility] LABORATORYCLIA [id number] [place] [address] [place] Creatinine [Mass/Vol] 0.55 mg/dL Low 0.73-1.22 [facility] Comment on above: Order Comment: Speci men Type: BLOOD SPECIMENOrdering Facility: [facility] Address: [address] [place] [address] Performed By: #### 2 4321-2, 2776-05, ####[facility] LABORATORYCLIA [id number] [address] [place] ESTIMATED GLOMERULAR FILTRATION RATE 107 mL/min/1.73m??? Normal >=60 [facility] Comment on above: Order Comment: Shira feldman Type: BLOOD SPECIMENOrdering Facility: [facility] Address: [address] [place] [address] Result Comment: Luzmaria mated Glomerular Filtration Rate [...] GFR. Performed By: #### 2 4321-2, 2777-1, ####[facility]ATORYCLIA [id number] [place] [address] [place] Glucose [Mass/Vol] 275 mg/dL High 74-99 [facility] Comment on above: Order Comment: Shira feldman Type: BLOOD SPECIMENOrdering Facility: [facility] Address: [address] [place] [address] Result Comment: The [place] [employer] (ADA) provides guidance for cutoff [...] Standards of Medical Care in Diabetes 2016, [place] [employer]. Diabetes Care. 2016.39(Suppl 1). Performed By: #### 2 4321-2, 2777-1, 45066-8 ####[facility] LABORATORYCLIA [id number] [place] [address] [place] Potassium [Moles/Vol] 3.6 mmol/L Low 3.7-5.1 [facility] Comment on above: Order Comment: Shira feldman Type: BLOOD SPECIMENOrdering Facility: [facility] Address: [address] [address] Performed By: #### 2 4321-2, 277-, ####[facility]ATORYCLIA [id number] [address] [place] [facility] Sodium [Moles/Vol] 134 mmol/L Low 136-144 [facility] Comment on above: Order Comment: Speci men Type: BLOOD SPECIMENOrdering Facility: [facility] Address: [address] [place] [address] Performed By: #### 2 4321-2, 2776-05, ####[facility]ORATORYCLIA [id number] [address] [place] Urea nitrogen [Mass/Vol] 29 mg/dL High 9-24 [facility] Comment on above: Order Comment: Speci men Type: BLOOD SPECIMENOrdering Facility: [facility] Address: [address] [place] [address] Performed By: #### 2 4321-2, 2776-05, ####[facility]ATORYCLIA [id number] [address] [place] CBC W Auto Differential pane l (Bld)on 08-06-2021 Basophils (Bld) [#/Vol] 0.03 10*3/uL Normal <0.11 [facility] Comment on above: Order Comment: Speci men Type: BLOOD SPECIMENOrdering Facility: [facility] Address: [address] [place] [address] Performed By: #### 5 7021-8 ####[facility]ATORYCLIA [id number] [address] [place] [facility] Basophils/100 WBC (Bld) 0.3 % Normal [facility] Comment on above: Order Comment: Speci men Type: BLOOD SPECIMENOrdering Facility: [facility] Address: [address] [place] [address] Performed By: #### 5 7021-8 ####[facility]ORYCLIA [id number] [address] Differential cell count method Nom (Bld) Auto Normal [facility] Comment on above: Order Comment: Speci men Type: BLOOD SPECIMENOrdering Facility: [facility] Address: [address] [place] [address] Performed By: #### 5 7021-8 ####[facility]ATORYCLIA [id number] [address] [place] Eosinophils (Bld) [#/Vol] 0.18 10*3/uL Normal <0.46 [facility] Comment on above: Order Comment: Speci men Type: BLOOD SPECIMENOrdering Facility: [facility] Address: [address] [place] [address] Performed By: #### 5 7021-8 ####[facility]ATORYCLIA [id number] [address] Eosinophils/100 WBC (Bld) 1.6 % Normal [facility] Comment on above: Order Comment: Speci men Type: BLOOD SPECIMENOrdering Facility: [facility] Address: [address] [place] [address] Performed By: #### 5 7021-8 ####[facility]ATORYCLIA [id number] [address] [place] Erythrocyte distribution width (RBC) [Ratio] 17.9 % High 11.5-15.0 [facility] Comment on above: Order Comment: Speci men Type: BLOOD SPECIMENOrdering Facility: [facility] Address: [address] [place] [address] Performed By: #### 5 7021-8 ####[facility]ATORYCLIA [id number] [address] [place] Hematocrit (Bld) [Volume fraction] 27.6 % Low 39.0-51.0 [facility] Comment on above: Order Comment: Speci men Type: BLOOD SPECIMENOrdering Facility: [facility] Address: [address] [place] [address] Performed By: #### 5 7021-8 ####[facility]ATORYCLIA [id number] [address] [place] Hemoglobin (Bld) [Mass/Vol] 8.5 g/dL Low 13.0-17.0 [facility] Comment on above: Order Comment: Speci men Type: BLOOD SPECIMENOrdering Facility: [facility] Address: [address] [place] [address] Performed By: #### 5 7021-8 ####[facility]ATORYCLIA [id number] [address] IMMATURE GRAN % 0.6 % Normal [facility] Comment on above: Order Comment: Speci men Type: BLOOD SPECIMENOrdering Facility: [facility] Address: [address] [place] [address] Performed By: #### 5 7021-8 ####[facility]ATORYCLIA [id number] [address] IMMATURE GRAN ABS 0.07 k/uL Normal <0.10 [facility] Comment on above: Order Comment: Speci men Type: BLOOD SPECIMENOrdering Facility: [facility] Address: [address] [place] [address] Performed By: #### 5 7021-8 ####[facility]ATORYCLIA [id number] [address] [place] Lymphocytes (Bld) [#/Vol] 1.81 10*3/uL Normal 1.00-4.00 [facility] Comment on above: Order Comment: Speci men Type: BLOOD SPECIMENOrdering Facility: [facility] Address: [address] [place] [address] Performed By: #### 5 7021-8 ####[facility]ATORYCLIA [id number] [address] Lymphocytes/100 WBC (Bld) 15.7 % Normal [facility] Comment on above: Order Comment: Speci men Type: BLOOD SPECIMENOrdering Facility: [facility] Address: [address] [place] [address] Performed By: #### 5 7021-8 ####[facility]ATORYCLIA [id number] [address] MCH (RBC) [Entitic mass] 28.6 pg Normal 26.0-34.0 [facility] Comment on above: Order Comment: Speci men Type: BLOOD SPECIMENOrdering Facility: [facility] Address: [address] [place] [address] Performed By: #### 5 7021-8 ####[facility]ATORYCLIA [id number] [address] MCHC (RBC) [Mass/Vol] 30.8 g/dL Normal 30.5-36.0 [facility] Comment on above: Order Comment: Speci men Type: BLOOD SPECIMENOrdering Facility: [facility] Address: [address] [place] [address] Performed By: #### 5 7021-8 ####[facility]ATORYCLIA [id number] [address] [place] [facility] MCV (RBC) [Entitic vol] 92.9 fL Normal 80.0-100.0 [facility] Comment on above: Order Comment: Speci men Type: BLOOD SPECIMENOrdering Facility: [facility] Address: [address] [place] [address] Performed By: #### 5 7021-8 ####[facility]ATORYCLIA [id number] [address] OF [facility] Monocytes (Bld) [#/Vol] 0.63 10*3/uL Normal <0.87 [facility] Comment on above: Order Comment: Speci men Type: BLOOD SPECIMENOrdering Facility: [facility] Address: [address] [place] [address] Performed By: #### 5 7021-8 ####[facility]ATORYCLIA [id number] [address] Monocytes/100 WBC (Bld) 5.5 % Normal [facility] Comment on above: Order Comment: Speci men Type: BLOOD SPECIMENOrdering Facility: [facility] Address: [address] [place] [address] Performed By: #### 5 7021-8 ####[facility]ORATORYCLIA [id number] [address] [place] Neutrophils (Bld) [#/Vol] 8.78 10*3/uL High 1.45-7.50 [facility] Comment on above: Order Comment: Speci men Type: BLOOD SPECIMENOrdering Facility: [facility] Address: [address] [place] [address] Performed By: #### 5 7021-8 ####[facility]ATORYCLIA [id number] [address] [place] Neutrophils/100 WBC (Bld) 76.3 % Normal [facility] Comment on above: Order Comment: Speci men Type: BLOOD SPECIMENOrdering Facility: [facility] Address: [address] [place] [address] Performed By: #### 5 7021-8 ####[facility]ATORYCLIA [id number] [address] [place] Nucleated RBC (Bld) [#/Vol] 10*3/uL Normal <0.01 [facility] Comment on above: Order Comment: Speci men Type: BLOOD SPECIMENOrdering Facility: [facility] Address: [address] [place] [address] Performed By: #### 5 7021-8 ####[facility]ORATORYCLIA [id number] [address] [place] Nucleated RBC/100 WBC (Bld) [Ratio] 0.0 /100 WBC Normal [facility] Comment on above: Order Comment: Speci men Type: BLOOD SPECIMENOrdering Facility: [facility] Address: [address] [place] [address] Performed By: #### 5 7021-8 ####[facility]ORATORYCLIA [id number] [address] [place] Platelet mean volume (Bld) [Entitic vol] 9.9 fL Normal 9.0-12.7 [facility] Comment on above: Order Comment: Speci men Type: BLOOD SPECIMENOrdering Facility: [facility] Address: [address] [place] [address] Performed By: #### 5 7021-8 ####[facility]ATORYCLIA [id number] [address] [place] Platelets (Bld) [#/Vol] 230 10*3/uL Normal 150-400 [facility] Comment on above: Order Comment: Speci men Type: BLOOD SPECIMENOrdering Facility: [facility] Address: [address] [place] [address] Performed By: #### 5 7021-8 ####[facility]ORATORYCLIA [id number] [place] [address] [place] RBC (Bld) [#/Vol] 2.97 10*6/uL Low 4.20-6.00 [facility] Comment on above: Order Comment: Speci men Type: BLOOD SPECIMENOrdering Facility: [facility] Address: [address] [place] [address] Performed By: #### 5 7021-8 ####[facility]ATORYCLIA [id number] [address] [place] WBC (Bld) [#/Vol] 11.50 10*3/uL High 3.70-11.00 [facility] Comment on above: Order Comment: Speci men Type: BLOOD SPECIMENOrdering Facility: [facility] Address: [address] [place] [address] Performed By: #### 5 7021-8 ####[facility]ATORYCLIA [id number] [address] [place] CONSULT PROGon 08-06-2021 CONSULT PROG Normal [facility] Magnesium SerPl-mCncon 08-06 Magnesium [Mass/Vol] 1.9 mg/dL Normal 1.7-2.3 [facility] Comment on above: Order Comment: Speci men Type: BLOOD SPECIMENOrdering Facility: [facility] Address: [address] [place] [address] Performed By: #### 2 4321-2, 2777-1, 15867-5 ####[facility]ATORYCLIA [id number] [address] [place] NURSING PROGon 08-06-2021 NURSING PROG Normal [facility] OPERATIVE NOon 08-06-2021 OPERATIVE NO Normal [facility] Phosphate SerPl-mCncon 08-06 Phosphate [Mass/Vol] 4.2 mg/dL Normal 2.7-4.8 [facility] Comment on above: Order Comment: Speci men Type: BLOOD SPECIMENOrdering Facility: [facility] Address: [address] [place] [address] Performed By: #### 2 4321-2, 2777-1, ####[facility]ATORYCLIA [id number] [address] [place] ALLIED HEALTHon 08-05-2021 ALLIED [...] on above: Performed By: #### 3 2355-0 ####[facility]ATORYCLIA [id number] [address] [place] Bacteria Ur Culton Bacteria identified Cx Nom (U) CULTURE, URINE: No growth (<1,000 CFU/ml) Normal [facility] Comment on above: Performed By: #### 6 30-4 ####[facility]ATORYCLIA [id number] [address] [place] Basic metabolic 2000 panelon 08-05-2021 Anion gap [Moles/Vol] 7 mmol/L Low 9-18 [facility] Comment on above: Order Comment: Speci men Type: BLOOD SPECIMENOrdering Facility: [facility] Address: [address] [place] [address] Performed By: #### 2 4321-2 ####[facility]ATORYCLIA [id number] [place] [address] [place] Calcium [Mass/Vol] 9.5 mg/dL Normal 8.5-10.2 [facility] Comment on above: Order Comment: Speci men Type: BLOOD SPECIMENOrdering Facility: [facility] Address: [address] [place] [address] Performed By: #### 2 4321-2 ####[facility]ORATORYCLIA [id number] [address] [place] Chloride [Moles/Vol] 97 mmol/L Normal 97-105 [facility] Comment on above: Order Comment: Speci men Type: BLOOD SPECIMENOrdering Facility: [facility] Address: [address] [place] [address] Performed By: #### 2 4321-2 ####[facility]ORYCLIA [id number] [address] [place] CO2 [Moles/Vol] 30 mmol/L Normal 22-30 [facility] Comment on above: Order Comment: Speci men Type: BLOOD SPECIMENOrdering Facility: [facility] Address: [address] [place] [address] Performed By: #### 2 4321-2 ####[facility]ATORYCLIA [id number] [place] [address] [place] Creatinine [Mass/Vol] 0.61 mg/dL Low 0.73-1.22 [facility] Comment on above: Order Comment: Speci men Type: BLOOD SPECIMENOrdering Facility: [facility] Address: [address] [place] [address] Performed By: #### 2 4321-2 ####[facility]ORATORYCLIA [id number] [address] [place] ESTIMATED GLOMERULAR FILTRATION RATE 104 mL/min/1.73m??? Normal >=60 [facility] Comment on above: Order Comment: Shira feldman Type: BLOOD SPECIMENOrdering Facility: [facility] Address: [address] [place] [address] Result Comment: Luzmaria mated Glomerular Filtration Rate [...] actual GFR. Performed By: #### 2 4321-2 ####[facility] LABORATORYIA [id number] [place] [address] [place] Glucose [Mass/Vol] 124 mg/dL High 74-99 [facility] Comment on above: Order Comment: Shira francia Type: BLOOD SPECIMENOrdering Facility: [facility] Address: [address] [place] [address] Result Comment: The [place] [employer] (ADA) provides guidance for cutoff [...] Standards of Medical Care in Diabetes 2016, [place] [employer]. Diabetes Care. 2016.39(Suppl 1). Performed By: #### 2 4321-2 ####[facility]ATORYCLIA [id number] [place] [address] [place] Potassium [Moles/Vol] 4.9 mmol/L Normal 3.7-5.1 [facility] Comment on above: Order Comment: Speci men Type: BLOOD SPECIMENOrdering Facility: [facility] Address: [address] [place] [address] Performed By: #### 2 4321-2 ####[facility]ATORYCLIA [id number] [place] [address] [place] Sodium [Moles/Vol] 134 mmol/L Low 136-144 [facility] Comment on above: Order Comment: Speci men Type: BLOOD SPECIMENOrdering Facility: [facility] Address: [address] [place] [address] Performed By: #### 2 4321-2 ####[facility]ATORYCLIA [id number] [address] [place] Urea nitrogen [Mass/Vol] 40 mg/dL High 9-24 [facility] Comment on above: Order Comment: Speci men Type: BLOOD SPECIMENOrdering Facility: [facility] Address: [address] [place] [address] Performed By: #### 2 4321-2 ####[facility]ATORYCLIA [id number] [place] [address] [place] CBC W Auto Differential pane l (Bld)on 08-05-2021 Basophils (Bld) [#/Vol] 0.04 10*3/uL Normal <0.11 [facility] Comment on above: Order Comment: Speci men Type: BLOOD SPECIMENOrdering Facility: [facility] Address: [address] [place] [address] Performed By: #### 5 7021-8 ####[facility]ATORYCLIA [id number] [address] [place] Basophils/100 WBC (Bld) 0.3 % Normal [facility] Comment on above: Order Comment: Speci men Type: BLOOD SPECIMENOrdering Facility: [facility] Address: [address] [place] [address] Performed By: #### 5 7021-8 ####[facility]ATORYCLIA [id number] [address] Differential cell count method Nom (Bld) Auto Normal [facility] Comment on above: Order Comment: Speci men Type: BLOOD SPECIMENOrdering Facility: [facility] Address: [address] [place] [address] Performed By: #### 5 7021-8 ####[facility]ATORYCLIA [id number] [address] Eosinophils (Bld) [#/Vol] 0.42 10*3/uL Normal <0.46 [facility] Comment on above: Order Comment: Speci men Type: BLOOD SPECIMENOrdering Facility: [facility] Address: [address] [place] [address] Performed By: #### 5 7021-8 ####[facility]ATORYCLIA [id number] [address] Eosinophils/100 WBC (Bld) 3.6 % Normal [facility] Comment on above: Order Comment: Speci men Type: BLOOD SPECIMENOrdering Facility: [facility] Address: [address] [place] [address] Performed By: #### 5 7021-8 ####[facility]ATORYCLIA [id number] [address] Erythrocyte distribution width (RBC) [Ratio] 17.9 % High 11.5-15.0 [facility] Comment on above: Order Comment: Speci men Type: BLOOD SPECIMENOrdering Facility: [facility] Address: [address] [place] [address] Performed By: #### 5 7021-8 ####[facility]ATORYCLIA [id number] [address] Hematocrit (Bld) [Volume fraction] 30.8 % Low 39.0-51.0 [facility] Comment on above: Order Comment: Speci men Type: BLOOD SPECIMENOrdering Facility: [facility] Address: [address] [place] [address] Performed By: #### 5 7021-8 ####[facility]ATORYCLIA [id number] [address] [place] Hemoglobin (Bld) [Mass/Vol] 9.6 g/dL Low 13.0-17.0 [facility] Comment on above: Order Comment: Speci men Type: BLOOD SPECIMENOrdering Facility: [facility] Address: [address] [place] [address] Performed By: #### 5 7021-8 ####[facility]ATORYCLIA [id number] [address] OF [facility] IMMATURE GRAN % 0.5 % Normal [facility] Comment on above: Order Comment: Speci men Type: BLOOD SPECIMENOrdering Facility: [facility] Address: [address] [place] [address] Performed By: #### 5 7021-8 ####[facility]ATORYCLIA [id number] [address] IMMATURE GRAN ABS 0.06 k/uL Normal <0.10 [facility] Comment on above: Order Comment: Speci men Type: BLOOD SPECIMENOrdering Facility: [facility] Address: [address] [place] [address] Performed By: #### 5 7021-8 ####[facility]ORATORYCLIA [id number] [address] [place] Lymphocytes (Bld) [#/Vol] 2.17 10*3/uL Normal 1.00-4.00 [facility] Comment on above: Order Comment: Speci men Type: BLOOD SPECIMENOrdering Facility: [facility] Address: [address] [place] [address] Performed By: #### 5 7021-8 ####[facility]ORYCLIA [id number] [address] Lymphocytes/100 WBC (Bld) 18.7 % Normal [facility] Comment on above: Order Comment: Speci men Type: BLOOD SPECIMENOrdering Facility: [facility] Address: [address] [place] [address] Performed By: #### 5 7021-8 ####[facility]ATORYCLIA [id number] [address] MCH (RBC) [Entitic mass] 28.9 pg Normal 26.0-34.0 [facility] Comment on above: Order Comment: Speci men Type: BLOOD SPECIMENOrdering Facility: [facility] Address: [address] [place] [address] Performed By: #### 5 7021-8 ####[facility]ATORYCLIA [id number] [address] STATES [place] [facility] MCHC (RBC) [Mass/Vol] 31.2 g/dL Normal 30.5-36.0 [facility] Comment on above: Order Comment: Speci men Type: BLOOD SPECIMENOrdering Facility: [facility] Address: [address] [place] [address] Performed By: #### 5 7021-8 ####[facility]ORATORYCLIA [id number] [address] STATES [facility] MCV (RBC) [Entitic vol] 92.8 fL Normal 80.0-100.0 [facility] Comment on above: Order Comment: Speci men Type: BLOOD SPECIMENOrdering Facility: [facility] Address: [address] [place] [address] Performed By: #### 5 7021-8 ####[facility]ORATORYCLIA [id number] [address] Monocytes (Bld) [#/Vol] 0.71 10*3/uL Normal <0.87 [facility] Comment on above: Order Comment: Speci men Type: BLOOD SPECIMENOrdering Facility: [facility] Address: [address] [place] [address] Performed By: #### 5 7021-8 ####[facility]ORYCLIA [id number] [address] [place] Monocytes/100 WBC (Bld) 6.1 % Normal [facility] Comment on above: Order Comment: Speci men Type: BLOOD SPECIMENOrdering Facility: [facility] Address: [address] [place] [address] Performed By: #### 5 7021-8 ####[facility]ORYCLIA [id number] [address] [place] Neutrophils (Bld) [#/Vol] 8.19 10*3/uL High 1.45-7.50 [facility] Comment on above: Order Comment: Speci men Type: BLOOD SPECIMENOrdering Facility: [facility] Address: [address] [place] [address] Performed By: #### 5 7021-8 ####[facility]ATORYCLIA [id number] [address] [place] Neutrophils/100 WBC (Bld) 70.8 % Normal [facility] Comment on above: Order Comment: Speci men Type: BLOOD SPECIMENOrdering Facility: [facility] Address: [address] [place] [address] Performed By: #### 5 7021-8 ####[facility]ORYCLIA [id number] [address] [place] Nucleated RBC (Bld) [#/Vol] 10*3/uL Normal <0.01 [facility] Comment on above: Order Comment: Speci men Type: BLOOD SPECIMENOrdering Facility: [facility] Address: [address] [place] [address] Performed By: #### 5 7021-8 ####[facility] LABORATORYCLIA [id number] [place] Nucleated RBC/100 WBC (Bld) [Ratio] 0.0 /100 WBC Normal [facility] Comment on above: Order Comment: Speci men Type: BLOOD SPECIMENOrdering Facility: [facility] Address: [address] [place] [address] Performed By: #### 5 7021-8 ####[facility] LABORATORYCLIA [id number] Platelet mean volume (Bld) [Entitic vol] 9.6 fL Normal 9.0-12.7 [facility] Comment on above: Order Comment: Speci men Type: BLOOD SPECIMENOrdering Facility: [facility] Address: [address] [place], [place] [address] Performed By: #### 5 7021-8 ####[facility] LABORATORYCLIA [id number] [address] STATES OF [facility] Platelets (Bld) [#/Vol] 339 10*3/uL Normal 150-400 [facility] Comment on above: Order Comment: Speci men Type: BLOOD SPECIMENOrdering Facility: [facility] Address: [address] [place] [address] Performed By: #### 5 7021-8 ####[facility] LABORATORYCLIA [id number] [address] [place] RBC (Bld) [#/Vol] 3.32 10*6/uL Low 4.20-6.00 [facility] Comment on above: Order Comment: Speci men Type: BLOOD SPECIMENOrdering Facility: [facility] Address: [address] [place], [place] [address] Performed By: #### 5 7021-8 ####[facility] LABORATORYCLIA [id number] [address] [place] WBC (Bld) [#/Vol] 11.59 10*3/uL High 3.70-11.00 [facility] Comment on above: Order Comment: Speci men Type: BLOOD SPECIMENOrdering Facility: [facility] Address: [address] [place] [address] Performed By: #### 5 7021-8 ####[facility] LABORATORYCLIA [id number] [address] [place] CT BRAIN WO IVCONon 08-06-[address] BRAIN WO IVCON Normal [facility] Magnesium SerPl-mCncon 08-05 Magnesium [Mass/Vol] 2.2 mg/dL Normal 1.7-2.3 [facility] Comment on above: Order Comment: Speci men Type: BLOOD SPECIMENOrdering Facility: [facility] Address: [address] [place] [address] Performed By: #### 1 9123-9, 2777-1 ####[facility] LABORATORYCLIA [id number] [address] [place] NURSING PROGon 08-05-2021 NURSING PROG Normal [facility] NURSING PROG Normal [facility] NUTRITIONon 08-05-2021 NUTRITION Normal [facility] OPERATIVE NOon 08-05-2021 OPERATIVE NO Normal [facility] Phosphate SerPl-mCncon 08-05 Phosphate [Mass/Vol] 4.6 mg/dL Normal 2.7-4.8 [facility] Comment on above: Order Comment: Speci men Type: BLOOD SPECIMENOrdering Facility: [facility] Address: [address] [place] [address] Performed By: #### 1 9123-9, 27711-04 ####[facility] LABORATORYCLIA [id number] [address] [place] THERAPY NTon 08-05-2021 THERAPY NT Normal [facility] THERAPY NT Normal [facility] Urinalysis complete panel (U )on 08-05-2021 Bilirubin Ql (U) Negative Normal Negative [facility] Comment on above: Order Comment: Speci men Type: URINE SPECIMENOrdering Facility: [facility] Address: [address] [place] [address] Performed By: #### 2 4356-8 ####[facility] LABORATORYCLIA [id number] [address] [place] Clarity (Unsp spec) Clear Normal Clear [facility] Comment on above: Order Comment: Speci men Type: URINE SPECIMENOrdering Facility: [facility] Address: [address] [place] [address] Performed By: #### 2 4356-8 ####[facility] LABORATORYCLIA [id number] [address] OF [facility] Color (U) Light Yellow Normal yellow [facility] Comment on above: Order Comment: Speci men Type: URINE SPECIMENOrdering Facility: [facility] Address: [address] [place] [address] Performed By: #### 2 4356-8 ####[facility] LABORATORYCLIA [id number] [address] Epithelial cells LM.HPF (Urine sed) [#/Area] Few Abnormal None Seen [facility] Comment on above: Order Comment: Speci men Type: URINE SPECIMENOrdering Facility: [facility] Address: [address] [place] [address] Performed By: #### 2 4356-8 ####[facility] LABORATORYCLIA [id number] [address] Glucose Test strip (U) [Mass/Vol] Negative Normal Negative [facility] Comment on above: Order Comment: Speci men Type: URINE SPECIMENOrdering Facility: [facility] Address: [address] [place] [address] Performed By: #### 2 4356-8 ####[facility] LABORATORYCLIA [id number] [address] Hemoglobin Ql (U) Negative Normal Negative [facility] Comment on above: Order Comment: Speci men Type: URINE SPECIMENOrdering Facility: [facility] Address: [address] [place] [address] Performed By: #### 2 4356-8 ####[facility] LABORATORYCLIA [id number] [address] [place] Hyaline casts (Urine sed) [#/Area] 1-3 /LPF Abnormal 0 /LPF [facility] Comment on above: Order Comment: Speci men Type: URINE SPECIMENOrdering Facility: [facility] Address: [address] [place] [address] Performed By: #### 2 4356-8 ####[facility] LABORATORYCLIA [id number] [address] Ketones Ql (U) Negative Normal Negative [facility] Comment on above: Order Comment: Speci men Type: URINE SPECIMENOrdering Facility: [facility] Address: [address] [place] [address] Performed By: #### 2 4356-8 ####[facility]ATORYCLIA [id number] [address] Leukocyte esterase Test strip Ql (U) Negative Normal Negative [facility] Comment on above: Order Comment: Speci men Type: URINE SPECIMENOrdering Facility: [facility] Address: [address] [place] [address] Performed By: #### 2 4356-8 ####[facility] LABORATORYCLIA [id number] [address] STATES [facility] Nitrite Ql (U) Negative Normal Negative [facility] Comment on above: Order Comment: Speci men Type: URINE SPECIMENOrdering Facility: [facility] Address: [address] [place] [address] Performed By: #### 2 4356-8 ####[facility]ORYCLIA [id number] [address] [place] pH (U) 6.0 [pH] Normal 5.0-8.0 [facility] Comment on above: Order Comment: Speci men Type: URINE SPECIMENOrdering Facility: [facility] Address: [address] [place] [address] Performed By: #### 2 4356-8 ####[facility]ORATORYCLIA [id number] [address] [place] Protein (U) [Mass/Vol] Negative Normal Negative [facility] Comment on above: Order Comment: Speci men Type: URINE SPECIMENOrdering Facility: [facility] Address: [address] [place] [address] Performed By: #### 2 4356-8 ####[facility]ATORYCLIA [id number] [address] STATES [facility] RBC LM.HPF (Urine sed) [#/Area] 0-3 /HPF Normal 0-3 /HPF [facility] Comment on above: Order Comment: Speci men Type: URINE SPECIMENOrdering Facility: [facility] Address: [address] [place] [address] Performed By: #### 2 4356-8 ####[facility]PITALCLIA [id number] [address] Specific gravity (U) [Rel density] 1.015 Normal 1.005-1.030 [facility] Comment on above: Order Comment: Speci men Type: URINE SPECIMENOrdering Facility: [facility] Address: [address] [place] [address] Performed By: #### 2 4356-8 ####[facility] LABORATORYCLIA [id number] [address] Urobilinogen Ql (U) Normal Normal Negative [facility] Comment on above: Order Comment: Speci men Type: URINE SPECIMENOrdering Facility: [facility] Address: [address] [place] [address] Performed By: #### 2 4356-8 ####[facility] LABORATORYCLIA [id number] [address] [place] WBC LM.HPF (Urine sed) [#/Area] 0-5 /HPF Normal 0-5 /HPF [facility] Comment on above: Order Comment: Speci men Type: URINE SPECIMENOrdering Facility: [facility] Address: [address] [place] [address] Performed By: #### 2 4356-8 ####[facility]ORATORYCLIA [id number] [address] [place] [facility] XR ABDOMEN 1V SUPINEon 08-05 XR ABDOMEN 1V SUPINE Normal [facility] XR CHEST [...] on above: Performed By: #### 6 00-7 ####[facility]ORATORYCLIA [id number] [address] [place] [facility] Bacteria identified Cx Nom (Bld) CULTURE, BLOOD: No growth 5 days Normal [facility] Comment on above: Performed By: #### 6 00-7 ####[facility]ORATORYCLIA [id number] [address] [place] [facility] CBC W Auto Differential pane l (Bld)on 08-04-2021 Basophils (Bld) [#/Vol] 0.05 10*3/uL Normal <0.11 [facility] Comment on above: Order Comment: Speci men Type: BLOOD SPECIMENOrdering Facility: [facility] Address: [address] [place] [address] Performed By: #### 5 7021-8 ####[facility]ATORYCLIA [id number] [address] [place] Basophils/100 WBC (Bld) 0.4 % Normal [facility] Comment on above: Order Comment: Speci men Type: BLOOD SPECIMENOrdering Facility: [facility] Address: [address] [place] [address] Performed By: #### 5 7021-8 ####[facility]ORATORYCLIA [id number] [address] Differential cell count method Nom (Bld) Auto Normal [facility] Comment on above: Order Comment: Speci men Type: BLOOD SPECIMENOrdering Facility: [facility] Address: [address] [place] [address] Performed By: #### 5 7021-8 ####[facility]ORATORYCLIA [id number] [place] [address] [place] Eosinophils (Bld) [#/Vol] 0.21 10*3/uL Normal <0.46 [facility] Comment on above: Order Comment: Speci men Type: BLOOD SPECIMENOrdering Facility: [facility] Address: [address] [place] [address] Performed By: #### 5 7021-8 ####[facility]ORATORYCLIA [id number] [address] Eosinophils/100 WBC (Bld) 1.7 % Normal [facility] Comment on above: Order Comment: Speci men Type: BLOOD SPECIMENOrdering Facility: [facility] Address: [address] [place] [address] Performed By: #### 5 7021-8 ####[facility] LABORATORYCLIA [id number] [address] Erythrocyte distribution width (RBC) [Ratio] 18.1 % High 11.5-15.0 [facility] Comment on above: Order Comment: Speci men Type: BLOOD SPECIMENOrdering Facility: [facility] Address: [address] [place] [address] Performed By: #### 5 7021-8 ####[facility] LABORATORYCLIA [id number] [address] Hematocrit (Bld) [Volume fraction] 32.0 % Low 39.0-51.0 [facility] Comment on above: Order Comment: Speci men Type: BLOOD SPECIMENOrdering Facility: [facility] Address: [address] [place] [address] Performed By: #### 5 7021-8 ####[facility] LABORATORYCLIA [id number] [address] Hemoglobin (Bld) [Mass/Vol] 10.0 g/dL Low 13.0-17.0 [facility] Comment on above: Order Comment: Speci men Type: BLOOD SPECIMENOrdering Facility: [facility] Address: [address] [place] [address] Performed By: #### 5 7021-8 ####[facility] LABORATORYCLIA [id number] [address] IMMATURE GRAN % 0.6 % Normal [facility] Comment on above: Order Comment: Speci men Type: BLOOD SPECIMENOrdering Facility: [facility] Address: [address] [place] [address] Performed By: #### 5 7021-8 ####[facility]ORATORYCLIA [id number] [address] IMMATURE GRAN ABS 0.08 k/uL Normal <0.10 [facility] Comment on above: Order Comment: Speci men Type: BLOOD SPECIMENOrdering Facility: [facility] Address: [address] [place] [address] Performed By: #### 5 7021-8 ####[facility]ORATORYCLIA [id number] [address] [place] Lymphocytes (Bld) [#/Vol] 2.55 10*3/uL Normal 1.00-4.00 [facility] Comment on above: Order Comment: Speci men Type: BLOOD SPECIMENOrdering Facility: [facility] Address: [address] [place] [address] Performed By: #### 5 7021-8 ####[facility]ORATORYCLIA [id number] [address] Lymphocytes/100 WBC (Bld) 20.5 % Normal [facility] Comment on above: Order Comment: Speci men Type: BLOOD SPECIMENOrdering Facility: [facility] Address: [address] [place] [address] Performed By: #### 5 7021-8 ####[facility]ORATORYCLIA [id number] [address] MCH (RBC) [Entitic mass] 28.9 pg Normal 26.0-34.0 [facility] Comment on above: Order Comment: Speci men Type: BLOOD SPECIMENOrdering Facility: [facility] Address: [address] [place] [address] Performed By: #### 5 7021-8 ####[facility]ORATORYCLIA [id number] [address] MCHC (RBC) [Mass/Vol] 31.3 g/dL Normal 30.5-36.0 [facility] Comment on above: Order Comment: Speci men Type: BLOOD SPECIMENOrdering Facility: [facility] Address: [address] [place] [address] Performed By: #### 5 7021-8 ####[facility]ORATORYCLIA [id number] [address] MCV (RBC) [Entitic vol] 92.5 fL Normal 80.0-100.0 [facility] Comment on above: Order Comment: Speci men Type: BLOOD SPECIMENOrdering Facility: [facility] Address: [address] [place] [address] Performed By: #### 5 7021-8 ####[facility] LABORATORYCLIA [id number] [address] Monocytes (Bld) [#/Vol] 0.85 10*3/uL Normal <0.87 [facility] Comment on above: Order Comment: Speci men Type: BLOOD SPECIMENOrdering Facility: [facility] Address: [address] [place] [address] Performed By: #### 5 7021-8 ####[facility] LABORATORYCLIA [id number] [place] [address] [place] Monocytes/100 WBC (Bld) 6.8 % Normal [facility] Comment on above: Order Comment: Speci men Type: BLOOD SPECIMENOrdering Facility: [facility] Address: [address] [place] [address] Performed By: #### 5 7021-8 ####[facility]ATORYCLIA [id number] [place] [address] [place] Neutrophils (Bld) [#/Vol] 8.68 10*3/uL High 1.45-7.50 [facility] Comment on above: Order Comment: Speci men Type: BLOOD SPECIMENOrdering Facility: [facility] Address: [address] [place] [address] Performed By: #### 5 7021-8 ####[facility]ORYCLIA [id number] [address] [place] Neutrophils/100 WBC (Bld) 70.0 % Normal [facility] Comment on above: Order Comment: Speci men Type: BLOOD SPECIMENOrdering Facility: [facility] Address: [address] [place] [address] Performed By: #### 5 7021-8 ####[facility]ORYCLIA [id number] [address] [place] Nucleated RBC (Bld) [#/Vol] 10*3/uL Normal <0.01 [facility] Comment on above: Order Comment: Speci men Type: BLOOD SPECIMENOrdering Facility: [facility] Address: [address] [place] [address] Performed By: #### 5 7021-8 ####[facility]ORYCLIA [id number] [address] [place] Nucleated RBC/100 WBC (Bld) [Ratio] 0.0 /100 WBC Normal [facility] Comment on above: Order Comment: Speci men Type: BLOOD SPECIMENOrdering Facility: [facility] Address: [address] [place] [address] Performed By: #### 5 7021-8 ####[facility]ORATORYCLIA [id number] [address] [place] Platelet mean volume (Bld) [Entitic vol] 10.0 fL Normal 9.0-12.7 [facility] Comment on above: Order Comment: Speci men Type: BLOOD SPECIMENOrdering Facility: [facility] Address: [address] [place] [address] Performed By: #### 5 7021-8 ####[facility] LABORATORYCLIA [id number] [place] [address] [place] Platelets (Bld) [#/Vol] 393 10*3/uL Normal 150-400 [facility] Comment on above: Order Comment: Speci men Type: BLOOD SPECIMENOrdering Facility: [facility] Address: [address] [place] [address] Performed By: #### 5 7021-8 ####[facility]ORATORYCLIA [id number] [address] STATES [place] [facility] RBC (Bld) [#/Vol] 3.46 10*6/uL Low 4.20-6.00 [facility] Comment on above: Order Comment: Speci men Type: BLOOD SPECIMENOrdering Facility: [facility] Address: [address] [place] [address] Performed By: #### 5 7021-8 ####[facility]ORATORYCLIA [id number] [place] [address] [place] WBC (Bld) [#/Vol] 12.42 10*3/uL High 3.70-11.00 [facility] Comment on above: Order Comment: Speci men Type: BLOOD SPECIMENOrdering Facility: [facility] Address: [address] [place] [address] Performed By: #### 5 7021-8 ####[facility]ORATORYCLIA [id number] [address] [place] BRAIN WO IVCONon 08-05-[address] BRAIN WO IVCON Normal [facility] Lactate (Bld) [Moles/Vol]on 08-04-2021 Lactate [Moles/Vol] 1.4 mmol/L Normal 0.5-2.2 [facility] Comment on above: Order Comment: Speci men Type: BLOOD SPECIMENOrdering Facility: [facility] Address: [address] [place] [address] Performed By: #### 3 2693-4 ####[facility]ORATORYCLIA [id number] [address] PROCALCITONIN (LAB)on 2021 Procalcitonin [Mass/Vol] 0.08 ng/mL Normal <0.09 [facility] Comment on above: Order Comment: Speci men Type: BLOOD SPECIMENOrdering Facility: [facility] Address: [address] [place] [address] Result Comment: For a guided interpretation of test results, please visit the Change in Procalcitonin Calculator, [email or web address]. Performed By: #### P ROCAL ####[facility] HOSPITALIA [id number] [address] [place] [facility] Prealbumin [Mass/Vol]on 07-07 Prealbumin Nephelometry [Mass/Vol] 35 mg/dL Normal 17-36 [facility] Comment on above: Order Comment: Speci men Type: BLOOD SPECIMENOrdering Facility: [facility] Address: [address] [place] [address] Performed By: #### 1 4338-8 ####[facility] LABORATORYIA [id number] [place] [address] [place] SARS-CoV-2 RNA Resp Ql MEGAN+p robeon 08-04-2021 SARS-CoV-2 (COVID-19) RNA MEGAN+probe Ql (Resp) COVID 19 RESULT: SARS-CoV-2 (Agent of COVID-19) Not Detected by RT-PCR or equivalent method. This test has been authorized by FDA under an Emergency Use Authorization (EUA). Normal [facility] Comment on above: Performed By: #### 9 4500-6 ####[facility]ORATORYCLIA [id number] [address] TYPE AND SCREENon 08-04-2021 ABO O Normal [facility] Comment on above: Order Comment: Speci men Type: BLOOD SPECIMENOrdering Facility: [facility] Address: [address] [place] [address] Performed By: #### T SCR ####[facility] BLO[facility] BANKCLIA [id number] [address] HISTORICAL AB SCR STATUS Negative Normal [facility] Comment on above: Order Comment: Speci men Type: BLOOD SPECIMENOrdering Facility: [facility] Address: [address] [place] [address] Performed By: #### T SCR ####[facility] BLO[facility] BANKCLIA [id number] [address] Rh Nom (Bld) Positive Normal [facility] Comment on above: Order Comment: Speci men Type: BLOOD SPECIMENOrdering Facility: [facility] Address: [address] [place] [address] Performed By: #### T SCR ####[facility] BLOOD BANKCLIA [id number] [address] TYPE AND SCREEN EXPIRATION 08/07/2021 23:59 Normal [facility] Comment on above: Order Comment: Speci men Type: BLOOD SPECIMENOrdering Facility: [facility] Address: [address] [place] [address] Performed By: #### T SCR ####[facility] BLOOD BANKCLIA [id number] [address] [place] aPTT PPPon 08-04-2021 aPTT Coag (PPP) [Time] 51.8 s High 23.0-32.4 [facility] Comment on above: Order Comment: Speci men Type: BLOOD SPECIMENOrdering Facility: [facility] Address: [address] [place] [address] Performed By: #### 1 4979-9 ####[facility] LABORATORYCLIA [id number] [place] [address] [place] Basic metabolic 2000 panelon 08-03-2021 Anion gap [Moles/Vol] 9 mmol/L Normal 9-18 [facility] Comment on above: Order Comment: Speci men Type: BLOOD SPECIMENOrdering Facility: [facility] Address: [address] [place] [address] Performed By: #### 2 4321-2, , 2776- ####[facility] LABORATORYCLIA [id number] [place] [address] [place] Calcium [Mass/Vol] 9.3 mg/dL Normal 8.5-10.2 [facility] Comment on above: Order Comment: Speci men Type: BLOOD SPECIMENOrdering Facility: [facility] Address: [address] [place] [address] Performed By: #### 2 4321-2, , 2776- ####[facility] LABORATORYCLIA [id number] [place] [address] [place] Chloride [Moles/Vol] 97 mmol/L Normal 97-105 [facility] Comment on above: Order Comment: Speci men Type: BLOOD SPECIMENOrdering Facility: [facility] Address: [address] [place] [address] Performed By: #### 2 4321-2, , 2776-05 ####[facility] LABORATORYCLIA [id number] [place] [address] [place] CO2 [Moles/Vol] 27 mmol/L Normal 22-30 [facility] Comment on above: Order Comment: Speci men Type: BLOOD SPECIMENOrdering Facility: [facility] Address: [address] [place] [address] Performed By: #### 2 4321-2, , 2776- ####[facility] LABORATORYCLIA [id number] [place] [address] [facility] Creatinine [Mass/Vol] 0.63 mg/dL Low 0.73-1.22 [facility] Comment on above: Order Comment: Shira feldman Type: BLOOD SPECIMENOrdering Facility: [facility] Address: [address] [address] Performed By: #### 2 4321-2, , 2776-05 ####[facility] LABORATORYCLIA [id number] [address] ESTIMATED GLOMERULAR FILTRATION RATE 103 mL/min/1.73m??? Normal >=60 [facility] Comment on above: Order Comment: Shira feldman Type: BLOOD SPECIMENOrdering Facility: [facility] Address: [address] [place] [address] Result Comment: Luzmaria mated Glomerular Filtration Rate [...] Performed By: #### 2 4321-2, , 2776-05 ####[facility]PITALCLIA [id number] [address] [place] Glucose [Mass/Vol] 136 mg/dL High 74-99 [facility] Comment on above: Order Comment: Shira feldman Type: BLOOD SPECIMENOrdering Facility: [facility] Address: [address] [address] Result Comment: The [place] [employer] (ADA) provides guidance for cutoff [...] Standards of Medical Care in Diabetes 2016, [place] [employer]. Diabetes Care. 2016.39(Suppl 1). Performed By: #### 2 4321-2, , 2776-05 ####[facility]ATORYCLIA [id number] [place] [address] [place] Potassium [Moles/Vol] 4.1 mmol/L Normal 3.7-5.1 [facility] Comment on above: Order Comment: Speci men Type: BLOOD SPECIMENOrdering Facility: [facility] Address: [address] [place] [address] Performed By: #### 2 4321-2, , 2776-05 ####[facility]ORATORYCLIA [id number] [address] STATES OF [facility] Sodium [Moles/Vol] 133 mmol/L Low 136-144 [facility] Comment on above: Order Comment: Speci men Type: BLOOD SPECIMENOrdering Facility: [facility] Address: [address] [place] [address] Performed By: #### 2 4321-2, , 2776-05 ####[facility]ATORYCLIA [id number] [address] STATES [facility] Urea nitrogen [Mass/Vol] 40 mg/dL High 9-24 [facility] Comment on above: Order Comment: Shira feldman Type: BLOOD SPECIMENOrdering Facility: [facility] Address: [address] [place] [address] Performed By: #### 2 4321-2, , 2776-05 ####[facility]ORYCLIA [id number] [address] [place] CASE MANAGEMon 08-03-2021 CASE MANAGEM Normal [facility] CBC W Auto Differential pane l (Bld)on 08-03-2021 Basophils (Bld) [#/Vol] 0.06 10*3/uL Normal <0.11 [facility] Comment on above: Order Comment: Speci men Type: BLOOD SPECIMENOrdering Facility: [facility] Address: [address] [place] [address] Performed By: #### 5 7021-8 ####[facility] LABORATORYCLIA [id number] [address] [place] Basophils/100 WBC (Bld) 0.5 % Normal [facility] Comment on above: Order Comment: Speci men Type: BLOOD SPECIMENOrdering Facility: [facility] Address: [address] [place] [address] Performed By: #### 5 7021-8 ####[facility]ORYCLIA [id number] [address] Differential cell count method Nom (Bld) Auto Normal [facility] Comment on above: Order Comment: Speci men Type: BLOOD SPECIMENOrdering Facility: [facility] Address: [address] [place] [address] Performed By: #### 5 7021-8 ####[facility]ORYCLIA [id number] [address] [place] Eosinophils (Bld) [#/Vol] 0.23 10*3/uL Normal <0.46 [facility] Comment on above: Order Comment: Speci men Type: BLOOD SPECIMENOrdering Facility: [facility] Address: [address] [place] [address] Performed By: #### 5 7021-8 ####[facility]ORYCLIA [id number] [address] STATES [facility] Eosinophils/100 WBC (Bld) 1.8 % Normal [facility] Comment on above: Order Comment: Speci men Type: BLOOD SPECIMENOrdering Facility: [facility] Address: [address] [place] [address] Performed By: #### 5 7021-8 ####[facility]ORYCLIA [id number] [address] [place] Erythrocyte distribution width (RBC) [Ratio] 17.6 % High 11.5-15.0 [facility] Comment on above: Order Comment: Speci men Type: BLOOD SPECIMENOrdering Facility: [facility] Address: [address] [place] [address] Performed By: #### 5 7021-8 ####[facility]ATORYCLIA [id number] [address] OF [facility] Hematocrit (Bld) [Volume fraction] 30.7 % Low 39.0-51.0 [facility] Comment on above: Order Comment: Speci men Type: BLOOD SPECIMENOrdering Facility: [facility] Address: [address] [place] [address] Performed By: #### 5 7021-8 ####[facility]ORYCLIA [id number] [address] OF [facility] Hemoglobin (Bld) [Mass/Vol] 9.3 g/dL Low 13.0-17.0 [facility] Comment on above: Order Comment: Speci men Type: BLOOD SPECIMENOrdering Facility: [facility] Address: [address] [place] [address] Performed By: #### 5 7021-8 ####[facility]ATORYCLIA [id number] [address] IMMATURE GRAN % 0.6 % Normal [facility] Comment on above: Order Comment: Speci men Type: BLOOD SPECIMENOrdering Facility: [facility] Address: [address] [place] [address] Performed By: #### 5 7021-8 ####[facility]ORYCLIA [id number] [address] IMMATURE GRAN ABS 0.08 k/uL Normal <0.10 [facility] Comment on above: Order Comment: Speci men Type: BLOOD SPECIMENOrdering Facility: [facility] Address: [address] [place] [address] Performed By: #### 5 7021-8 ####[facility]ORYCLIA [id number] [address] OF [facility] Lymphocytes (Bld) [#/Vol] 2.45 10*3/uL Normal 1.00-4.00 [facility] Comment on above: Order Comment: Speci men Type: BLOOD SPECIMENOrdering Facility: [facility] Address: [address] [place] [address] Performed By: #### 5 7021-8 ####[facility]ORYCLIA [id number] [address] OF [facility] Lymphocytes/100 WBC (Bld) 19.7 % Normal [facility] Comment on above: Order Comment: Speci men Type: BLOOD SPECIMENOrdering Facility: [facility] Address: [address] [place] [address] Performed By: #### 5 7021-8 ####[facility]ATORYCLIA [id number] [address] [place] [facility] MCH (RBC) [Entitic mass] 28.2 pg Normal 26.0-34.0 [facility] Comment on above: Order Comment: Speci men Type: BLOOD SPECIMENOrdering Facility: [facility] Address: [address] [place] [address] Performed By: #### 5 7021-8 ####[facility]ORYCLIA [id number] [address] [place] MCHC (RBC) [Mass/Vol] 30.3 g/dL Low 30.5-36.0 [facility] Comment on above: Order Comment: Speci men Type: BLOOD SPECIMENOrdering Facility: [facility] Address: [address] [place] [address] Performed By: #### 5 7021-8 ####[facility]ATORYCLIA [id number] [address] STATES [facility] MCV (RBC) [Entitic vol] 93.0 fL Normal 80.0-100.0 [facility] Comment on above: Order Comment: Speci men Type: BLOOD SPECIMENOrdering Facility: [facility] Address: [address] [place] [address] Performed By: #### 5 7021-8 ####[facility]ORATORYCLIA [id number] [address] [place] Monocytes (Bld) [#/Vol] 0.72 10*3/uL Normal <0.87 [facility] Comment on above: Order Comment: Speci men Type: BLOOD SPECIMENOrdering Facility: [facility] Address: [address] [place] [address] Performed By: #### 5 7021-8 ####[facility]ATORYCLIA [id number] [address] [place] Monocytes/100 WBC (Bld) 5.8 % Normal [facility] Comment on above: Order Comment: Speci men Type: BLOOD SPECIMENOrdering Facility: [facility] Address: [address] [place] [address] Performed By: #### 5 7021-8 ####[facility]ATORYCLIA [id number] [address] [place] Neutrophils (Bld) [#/Vol] 8.92 10*3/uL High 1.45-7.50 [facility] Comment on above: Order Comment: Speci men Type: BLOOD SPECIMENOrdering Facility: [facility] Address: [address] [place] [address] Performed By: #### 5 7021-8 ####[facility]ATORYCLIA [id number] [address] [place] Neutrophils/100 WBC (Bld) 71.6 % Normal [facility] Comment on above: Order Comment: Speci men Type: BLOOD SPECIMENOrdering Facility: [facility] Address: [address] [place] [address] Performed By: #### 5 7021-8 ####[facility]ORATORYCLIA [id number] [address] [place] Nucleated RBC (Bld) [#/Vol] 10*3/uL Normal <0.01 [facility] Comment on above: Order Comment: Speci men Type: BLOOD SPECIMENOrdering Facility: [facility] Address: [address] [place] [address] Performed By: #### 5 7021-8 ####[facility]ATORYCLIA [id number] [address] [place] Nucleated RBC/100 WBC (Bld) [Ratio] 0.0 /100 WBC Normal [facility] Comment on above: Order Comment: Speci men Type: BLOOD SPECIMENOrdering Facility: [facility] Address: [address] [place] [address] Performed By: #### 5 7021-8 ####[facility]ATORYCLIA [id number] [place] [address] [place] Platelet mean volume (Bld) [Entitic vol] 10.2 fL Normal 9.0-12.7 [facility] Comment on above: Order Comment: Speci men Type: BLOOD SPECIMENOrdering Facility: [facility] Address: [address] [place] [address] Performed By: #### 5 7021-8 ####[facility]ATORYCLIA [id number] [address] [place] Platelets (Bld) [#/Vol] 352 10*3/uL Normal 150-400 [facility] Comment on above: Order Comment: Speci men Type: BLOOD SPECIMENOrdering Facility: [facility] Address: [address] [place] [address] Performed By: #### 5 7021-8 ####[facility]ATORYCLIA [id number] [address] [place] RBC (Bld) [#/Vol] 3.30 10*6/uL Low 4.20-6.00 [facility] Comment on above: Order Comment: Speci men Type: BLOOD SPECIMENOrdering Facility: [facility] Address: [address] [place] [address] Performed By: #### 5 7021-8 ####[facility]ORATORYCLIA [id number] [place] [address] [place] WBC (Bld) [#/Vol] 12.46 10*3/uL High 3.70-11.00 [facility] Comment on above: Order Comment: Speci men Type: BLOOD SPECIMENOrdering Facility: [facility] Address: [address] [place] [address] Performed By: #### 5 7021-8 ####[facility]ORYCLIA [id number] [address] [place] CONSULT PROGon 08-03-2021 CONSULT PROG Normal [facility] Magnesium SerPl-ncon 08-03 Magnesium [Mass/Vol] 2.2 mg/dL Normal 1.7-2.3 [facility] Comment on above: Order Comment: Speci men Type: BLOOD SPECIMENOrdering Facility: [facility] Address: [address] [place] [address] Performed By: #### 2 4321-2, 57088-7, 2777-1 ####[facility]PITALCLIA [id number] [address] NURSING PROGon 08-03-2021 NURSING PROG Normal [facility] Phosphate SerPl-mCncon 08-03 Phosphate [Mass/Vol] 4.2 mg/dL Normal 2.7-4.8 [facility] Comment on above: Order Comment: Speci men Type: BLOOD SPECIMENOrdering Facility: [facility] Address: [address] [place] [address] Performed By: #### 2 4321-2, 39264-9, 2777-1 ####[facility]ATORYCLIA [id number] [address] aPTT PPPon 08-03-2021 aPTT Coag (PPP) [Time] 50.0 s High 23.0-32.4 [facility] Comment on above: Order Comment: Speci men Type: BLOOD SPECIMENOrdering Facility: [facility] Address: [address] [address] Performed By: #### 1 4979-9 ####[facility]ORYCLIA [id number] [address] [place] CBC W Auto Differential pane l (Bld)on 08-02-2021 Basophils (Bld) [#/Vol] 10*3/uL Normal <0.11 [facility] Comment on above: Order Comment: Speci men Type: BLOOD SPECIMENOrdering Facility: [facility] Address: [address] [place] [address] Performed By: #### 5 7021-8 ####[facility]ORYCLIA [id number] [address] STATES [facility] Basophils/100 WBC (Bld) 0.2 % Normal [facility] Comment on above: Order Comment: Speci men Type: BLOOD SPECIMENOrdering Facility: [facility] Address: [address] [place] [address] Performed By: #### 5 7021-8 ####[facility]ORYCLIA [id number] [address] Differential cell count method Nom (Bld) Auto Normal [facility] Comment on above: Order Comment: Speci men Type: BLOOD SPECIMENOrdering Facility: [facility] Address: [address] [place] [address] Performed By: #### 5 7021-8 ####[facility]ORYCLIA [id number] [address] [place] Eosinophils (Bld) [#/Vol] 10*3/uL Normal <0.46 [facility] Comment on above: Order Comment: Speci men Type: BLOOD SPECIMENOrdering Facility: [facility] Address: [address] [place] [address] Performed By: #### 5 7021-8 ####[facility]ATORYCLIA [id number] [address] [place] Eosinophils/100 WBC (Bld) 0.0 % Normal [facility] Comment on above: Order Comment: Speci men Type: BLOOD SPECIMENOrdering Facility: [facility] Address: [address] [place] [address] Performed By: #### 5 7021-8 ####[facility]ORYCLIA [id number] [address] Erythrocyte distribution width (RBC) [Ratio] 17.3 % High 11.5-15.0 [facility] Comment on above: Order Comment: Speci men Type: BLOOD SPECIMENOrdering Facility: [facility] Address: [address] [place] [address] Performed By: #### 5 7021-8 ####[facility]ORYCLIA [id number] [address] Hematocrit (Bld) [Volume fraction] 30.8 % Low 39.0-51.0 [facility] Comment on above: Order Comment: Speci men Type: BLOOD SPECIMENOrdering Facility: [facility] Address: [address] [place] [address] Performed By: #### 5 7021-8 ####[facility]ATORYCLIA [id number] [address] Hemoglobin (Bld) [Mass/Vol] 9.7 g/dL Low 13.0-17.0 [facility] Comment on above: Order Comment: Speci men Type: BLOOD SPECIMENOrdering Facility: [facility] Address: [address] [place] [address] Performed By: #### 5 7021-8 ####[facility]ORYCLIA [id number] [address] IMMATURE GRAN % 0.5 % Normal [facility] Comment on above: Order Comment: Speci men Type: BLOOD SPECIMENOrdering Facility: [facility] Address: [address] [place] [address] Performed By: #### 5 7021-8 ####[facility]ORYCLIA [id number] [address] IMMATURE GRAN ABS 0.07 k/uL Normal <0.10 [facility] Comment on above: Order Comment: Speci men Type: BLOOD SPECIMENOrdering Facility: [facility] Address: [address] [place] [address] Performed By: #### 5 7021-8 ####[facility]ATORYCLIA [id number] [address] OF [facility] Lymphocytes (Bld) [#/Vol] 1.60 10*3/uL Normal 1.00-4.00 [facility] Comment on above: Order Comment: Speci men Type: BLOOD SPECIMENOrdering Facility: [facility] Address: [address] [place] [address] Performed By: #### 5 7021-8 ####[facility]ORYCLIA [id number] [address] Lymphocytes/100 WBC (Bld) 12.1 % Normal [facility] Comment on above: Order Comment: Speci men Type: BLOOD SPECIMENOrdering Facility: [facility] Address: [address] [place] [address] Performed By: #### 5 7021-8 ####[facility]ATORYCLIA [id number] [address] MCH (RBC) [Entitic mass] 28.6 pg Normal 26.0-34.0 [facility] Comment on above: Order Comment: Speci men Type: BLOOD SPECIMENOrdering Facility: [facility] Address: [address] [place] [address] Performed By: #### 5 7021-8 ####[facility]ORYCLIA [id number] [address] MCHC (RBC) [Mass/Vol] 31.5 g/dL Normal 30.5-36.0 [facility] Comment on above: Order Comment: Speci men Type: BLOOD SPECIMENOrdering Facility: [facility] Address: [address] [place] [address] Performed By: #### 5 7021-8 ####[facility]ORYCLIA [id number] [address] [place] MCV (RBC) [Entitic vol] 90.9 fL Normal 80.0-100.0 [facility] Comment on above: Order Comment: Speci men Type: BLOOD SPECIMENOrdering Facility: [facility] Address: [address] [place] [address] Performed By: #### 5 7021-8 ####[facility]ORYCLIA [id number] [address] [place] Monocytes (Bld) [#/Vol] 0.39 10*3/uL Normal <0.87 [facility] Comment on above: Order Comment: Speci men Type: BLOOD SPECIMENOrdering Facility: [facility] Address: [address] [place] [address] Performed By: #### 5 7021-8 ####[facility]ORYCLIA [id number] [address] Monocytes/100 WBC (Bld) 3.0 % Normal [facility] Comment on above: Order Comment: Speci men Type: BLOOD SPECIMENOrdering Facility: [facility] Address: [address] [place] [address] Performed By: #### 5 7021-8 ####[facility]ORYCLIA [id number] [address] [place] Neutrophils (Bld) [#/Vol] 11.09 10*3/uL High 1.45-7.50 [facility] Comment on above: Order Comment: Speci men Type: BLOOD SPECIMENOrdering Facility: [facility] Address: [address] [place] [address] Performed By: #### 5 7021-8 ####[facility]ORYCLIA [id number] [address] [place] Neutrophils/100 WBC (Bld) 84.2 % Normal [facility] Comment on above: Order Comment: Speci men Type: BLOOD SPECIMENOrdering Facility: [facility] Address: [address] Performed By: #### 5 7021-8 ####[facility]ORYCLIA [id number] [address] Nucleated RBC (Bld) [#/Vol] 10*3/uL Normal <0.01 [facility] Comment on above: Order Comment: Speci men Type: BLOOD SPECIMENOrdering Facility: [facility] Address: [address] Performed By: #### 5 7021-8 ####[facility]ORYCLIA [id number] [address] Nucleated RBC/100 WBC (Bld) [Ratio] 0.0 /100 WBC Normal [facility] Comment on above: Order Comment: Speci men Type: BLOOD SPECIMENOrdering Facility: [facility] Address: [address] [place] [address] Performed By: #### 5 7021-8 ####[facility]ORYCLIA [id number] [address] STATES [facility] Platelet mean volume (Bld) [Entitic vol] 10.0 fL Normal 9.0-12.7 [facility] Comment on above: Order Comment: Speci men Type: BLOOD SPECIMENOrdering Facility: [facility] Address: [address] Performed By: #### 5 7021-8 ####[facility]ORYCLIA [id number] [address] Platelets (Bld) [#/Vol] 358 10*3/uL Normal 150-400 [facility] Comment on above: Order Comment: Speci men Type: BLOOD SPECIMENOrdering Facility: [facility] Address: [address] [place] [address] Performed By: #### 5 7021-8 ####[facility]ORYCLIA [id number] [address] RBC (Bld) [#/Vol] 3.39 10*6/uL Low 4.20-6.00 [facility] Comment on above: Order Comment: Speci men Type: BLOOD SPECIMENOrdering Facility: [facility] Address: [address] [place] [address] Performed By: #### 5 7021-8 ####[facility]ORYCLIA [id number] [address] OF [facility] WBC (Bld) [#/Vol] 13.17 10*3/uL High 3.70-11.00 [facility] Comment on above: Order Comment: Speci men Type: BLOOD SPECIMENOrdering Facility: [facility] Address: [address] [place] [address] Performed By: #### 5 7021-8 ####[facility]ATORYCLIA [id number] [address] NURSING PROGon 08-02-2021 NURSING PROG Normal [facility] THERAPY NTon 08-02-2021 THERAPY NT Normal [facility] aPTT PPPon 08-02-2021 aPTT Coag (PPP) [Time] 54.9 s High 23.0-32.4 [facility] Comment on above: Order Comment: Speci men Type: BLOOD SPECIMENOrdering Facility: [facility] Address: [address] [place] [address] Performed By: #### 1 4979-9 ####[facility]ORYCLIA [id number] [address] [place] ALLIED HEALTHon 08-01-2021 ALLIED HEALTH Normal [facility] ALLIED HEALTH Normal [facility] Basic metabolic 2000 panelon 08-01-2021 Anion gap [Moles/Vol] 12 mmol/L Normal 9-18 [facility] Comment on above: Order Comment: Speci men Type: BLOOD SPECIMENOrdering Facility: [facility] Address: [address] [place] [address] Performed By: #### 2 4321-2, 22944-2, 56849-1, 2776- ####[facility]ORYCLIA [id number] [place] [address] [place] Calcium [Mass/Vol] 9.1 mg/dL Normal 8.5-10.2 [facility] Comment on above: Order Comment: Speci men Type: BLOOD SPECIMENOrdering Facility: [facility] Address: [address] [place] [address] Performed By: #### 2 4321-2, 52774-8, 46711-1, 2776- ####[facility]ORYCLIA [id number] [place] [id number] [place] Chloride [Moles/Vol] 96 mmol/L Low 97-105 [facility] Comment on above: Order Comment: Speci men Type: BLOOD SPECIMENOrdering Facility: [facility] Address: [address] [place] [address] Performed By: #### 2 4321-2, 39744-5, 63163-8, 2776- ####[facility]ORYCLIA [id number] [place] [address] [place] CO2 [Moles/Vol] 27 mmol/L Normal 22-30 [facility] Comment on above: Order Comment: Speci men Type: BLOOD SPECIMENOrdering Facility: [facility] Address: [address] [place] [address] Performed By: #### 2 4321-2, 02578-6, 77998-6, 2776- ####[facility]ORYCLIA [id number] [place] [id number] [place] Creatinine [Mass/Vol] 0.64 mg/dL Low 0.73-1.22 [facility] Comment on above: Order Comment: Speci men Type: BLOOD SPECIMENOrdering Facility: [facility] Address: [address] [place] [address] Performed By: #### 2 4321-2, 64148-2, 80187-5, 2776-1 ####[facility]ORYCLIA [id number] [place] [address] [place] ESTIMATED GLOMERULAR FILTRATION RATE 102 mL/min/1.73m??? Normal >=60 [facility] Comment on above: Order Comment: Shira feldman Type: BLOOD SPECIMENOrdering Facility: [facility] Address: [address] [place] [address] Result Comment: Luzmaria mated Glomerular Filtration Rate [...] actual GFR. Performed By: #### 2 4321-2, 84909-6, 66079-7, 2777-1 ####[facility]ITAL[facility]IA [id number] [place] [id number] [place] Glucose [Mass/Vol] 122 mg/dL High 74-99 [facility] Comment on above: Order Comment: Shira feldman Type: BLOOD SPECIMENOrdering Facility: [facility] Address: [address] [place] [address] Result Comment: The [place] [employer] (ADA) provides guidance for cutoff [...] Standards of Medical Care in Diabetes 2016, [place] [employer]. Diabetes Care. 2016.39(Suppl 1). Performed By: #### 2 4321-2, 79088-5, 11425-9, 2777-1 ####[facility]PITALIA [id number] [place] [address] [place] Potassium [Moles/Vol] 4.2 mmol/L Normal 3.7-5.1 [facility] Comment on above: Order Comment: Speci men Type: BLOOD SPECIMENOrdering Facility: [facility] Address: [address] [place] [address] Performed By: #### 2 4321-2, 82980-7, 49591-4, 2777-1 ####[facility] LABORATORYCLIA [id number] [place] [address] [place] Sodium [Moles/Vol] 135 mmol/L Low 136-144 [facility] Comment on above: Order Comment: Speci men Type: BLOOD SPECIMENOrdering Facility: [facility] Address: [address] [place] [address] Performed By: #### 2 4321-2, 62661-7, 21276-1, 2777-1 ####[facility] LABORATORYCLIA [id number] [place] [address] [place] Urea nitrogen [Mass/Vol] 36 mg/dL High 9-24 [facility] Comment on above: Order Comment: Speci men Type: BLOOD SPECIMENOrdering Facility: [facility] Address: [address] [place] [address] Performed By: #### 2 4321-2, 37890-7, 56740-5, 2777-1 ####[facility] LABORATORYCLIA [id number] [address] [place] CASE MANAGEMon 08-01-2021 CASE MANAGEM Normal [facility] CBC W Auto Differential pane l (Bld)on 08-01-2021 Basophils (Bld) [#/Vol] 0.04 10*3/uL Normal <0.11 [facility] Comment on above: Order Comment: Speci men Type: BLOOD SPECIMENOrdering Facility: [facility] Address: [address] [place] [address] Performed By: #### 5 7021-8 ####[facility] LABORATORYCLIA [id number] [place] [address] [place] Basophils/100 WBC (Bld) 0.3 % Normal [facility] Comment on above: Order Comment: Speci men Type: BLOOD SPECIMENOrdering Facility: [facility] Address: [address] [place] [address] Performed By: #### 5 7021-8 ####[facility] LABORATORYCLIA [id number] [address] [facility] Differential cell count method Nom (Bld) Auto Normal [facility] Comment on above: Order Comment: Speci men Type: BLOOD SPECIMENOrdering Facility: [facility] Address: [address] [place] [address] Performed By: #### 5 7021-8 ####[facility] LABORATORYCLIA [id number] [address] [place] Eosinophils (Bld) [#/Vol] 0.37 10*3/uL Normal <0.46 [facility] Comment on above: Order Comment: Speci men Type: BLOOD SPECIMENOrdering Facility: [facility] Address: [address] [place] [address] Performed By: #### 5 7021-8 ####[facility] LABORATORYCLIA [id number] [address] Eosinophils/100 WBC (Bld) 3.1 % Normal [facility] Comment on above: Order Comment: Speci men Type: BLOOD SPECIMENOrdering Facility: [facility] Address: [address] [place] [address] Performed By: #### 5 7021-8 ####[facility] LABORATORYCLIA [id number] [address] [place] Erythrocyte distribution width (RBC) [Ratio] 17.5 % High 11.5-15.0 [facility] Comment on above: Order Comment: Speci men Type: BLOOD SPECIMENOrdering Facility: [facility] Address: [address] [place] [address] Performed By: #### 5 7021-8 ####[facility]ORATORYCLIA [id number] [address] [facility] Hematocrit (Bld) [Volume fraction] 30.1 % Low 39.0-51.0 [facility] Comment on above: Order Comment: Speci men Type: BLOOD SPECIMENOrdering Facility: [facility] Address: [address] [place] [address] Performed By: #### 5 7021-8 ####[facility] LABORATORYCLIA [id number] [address] [place] Hemoglobin (Bld) [Mass/Vol] 9.1 g/dL Low 13.0-17.0 [facility] Comment on above: Order Comment: Speci men Type: BLOOD SPECIMENOrdering Facility: [facility] Address: [address] [place] [address] Performed By: #### 5 7021-8 ####[facility] LABORATORYCLIA [id number] [address] IMMATURE GRAN % 0.6 % Normal [facility] Comment on above: Order Comment: Speci men Type: BLOOD SPECIMENOrdering Facility: [facility] Address: [address] [place] [address] Performed By: #### 5 7021-8 ####[facility] LABORATORYCLIA [id number] [address] IMMATURE GRAN ABS 0.07 k/uL Normal <0.10 [facility] Comment on above: Order Comment: Speci men Type: BLOOD SPECIMENOrdering Facility: [facility] Address: [address] [place] [address] Performed By: #### 5 7021-8 ####[facility] LABORATORYCLIA [id number] [address] [place] Lymphocytes (Bld) [#/Vol] 2.05 10*3/uL Normal 1.00-4.00 [facility] Comment on above: Order Comment: Speci men Type: BLOOD SPECIMENOrdering Facility: [facility] Address: [address] [place] [address] Performed By: #### 5 7021-8 ####[facility] LABORATORYCLIA [id number] [address] Lymphocytes/100 WBC (Bld) 17.1 % Normal [facility] Comment on above: Order Comment: Speci men Type: BLOOD SPECIMENOrdering Facility: [facility] Address: [address] [place] [address] Performed By: #### 5 7021-8 ####[facility]ORATORYCLIA [id number] [address] MCH (RBC) [Entitic mass] 27.7 pg Normal 26.0-34.0 [facility] Comment on above: Order Comment: Speci men Type: BLOOD SPECIMENOrdering Facility: [facility] Address: [address] [place] [address] Performed By: #### 5 7021-8 ####[facility] LABORATORYCLIA [id number] [address] MCHC (RBC) [Mass/Vol] 30.2 g/dL Low 30.5-36.0 [facility] Comment on above: Order Comment: Speci men Type: BLOOD SPECIMENOrdering Facility: [facility] Address: [address] [place] [address] Performed By: #### 5 7021-8 ####[facility] LABORATORYCLIA [id number] [address] MCV (RBC) [Entitic vol] 91.5 fL Normal 80.0-100.0 [facility] Comment on above: Order Comment: Speci men Type: BLOOD SPECIMENOrdering Facility: [facility] Address: [address] [place] [address] Performed By: #### 5 7021-8 ####[facility]ORATORYCLIA [id number] [address] Monocytes (Bld) [#/Vol] 0.53 10*3/uL Normal <0.87 [facility] Comment on above: Order Comment: Speci men Type: BLOOD SPECIMENOrdering Facility: [facility] Address: [address] [place] [address] Performed By: #### 5 7021-8 ####[facility] LABORATORYCLIA [id number] [address] [place] Monocytes/100 WBC (Bld) 4.4 % Normal [facility] Comment on above: Order Comment: Speci men Type: BLOOD SPECIMENOrdering Facility: [facility] Address: [address] [place] [address] Performed By: #### 5 7021-8 ####[facility] LABORATORYCLIA [id number] [place] [address] [place] Neutrophils (Bld) [#/Vol] 8.91 10*3/uL High 1.45-7.50 [facility] Comment on above: Order Comment: Speci men Type: BLOOD SPECIMENOrdering Facility: [facility] Address: [address] [place] [address] Performed By: #### 5 7021-8 ####[facility] LABORATORYCLIA [id number] [address] [place] Neutrophils/100 WBC (Bld) 74.5 % Normal [facility] Comment on above: Order Comment: Speci men Type: BLOOD SPECIMENOrdering Facility: [facility] Address: [address] [place] [address] Performed By: #### 5 7021-8 ####[facility] LABORATORYCLIA [id number] [place] [address] [place] Nucleated RBC (Bld) [#/Vol] 10*3/uL Normal <0.01 [facility] Comment on above: Order Comment: Speci men Type: BLOOD SPECIMENOrdering Facility: [facility] Address: [address] [place] [address] Performed By: #### 5 7021-8 ####[facility]ORATORYCLIA [id number] [place] [address] [place] Nucleated RBC/100 WBC (Bld) [Ratio] 0.0 /100 WBC Normal [facility] Comment on above: Order Comment: Speci men Type: BLOOD SPECIMENOrdering Facility: [facility] Address: [address] [place] [address] Performed By: #### 5 7021-8 ####[facility]ORATORYCLIA [id number] [place] [address] [place] Platelet mean volume (Bld) [Entitic vol] 10.4 fL Normal 9.0-12.7 [facility] Comment on above: Order Comment: Speci men Type: BLOOD SPECIMENOrdering Facility: [facility] Address: [address] [place] [address] Performed By: #### 5 7021-8 ####[facility]ORATORYCLIA [id number] [address] [place] Platelets (Bld) [#/Vol] 319 10*3/uL Normal 150-400 [facility] Comment on above: Order Comment: Speci men Type: BLOOD SPECIMENOrdering Facility: [facility] Address: [address] [place] [address] Performed By: #### 5 7021-8 ####[facility]ORATORYCLIA [id number] [address] [place] RBC (Bld) [#/Vol] 3.29 10*6/uL Low 4.20-6.00 [facility] Comment on above: Order Comment: Speci men Type: BLOOD SPECIMENOrdering Facility: [facility] Address: [address] [place] [address] Performed By: #### 5 7021-8 ####[facility]ORATORYCLIA [id number] [address] [place] WBC (Bld) [#/Vol] 11.97 10*3/uL High 3.70-11.00 [facility] Comment on above: Order Comment: Speci men Type: BLOOD SPECIMENOrdering Facility: [facility] Address: [address] [address] Performed By: #### 5 7021-8 ####[facility]ORATORYCLIA [id number] [address] [place] CT BRAIN WO IVCONon 08-02-19 CT BRAIN WO IVCON Normal [facility] Magnesium SerPl-mCncon 08-01 Magnesium [Mass/Vol] 2.4 mg/dL High 1.7-2.3 [facility] Comment on above: Order Comment: Speci men Type: BLOOD SPECIMENOrdering Facility: [facility] Address: [address] [place] [address] Performed By: #### 2 4321-2, 23871-9, 92131-3, 2777-1 ####[facility]ATORYCLIA [id number] [address] [place] NURSING PROGon 08-01-2021 NURSING PROG Normal [facility] NUTRITIONon 08-01-2021 NUTRITION Normal [facility] Phosphate SerPl-mCncon 08-01 Phosphate [Mass/Vol] 3.3 mg/dL Normal 2.7-4.8 [facility] Comment on above: Order Comment: Speci men Type: BLOOD SPECIMENOrdering Facility: [facility] Address: [address] [address] Performed By: #### 2 4321-2, 14675-6, 72644-6, 2777-1 ####[facility]ATORYCLIA [id number] [address] [place] Prealbumin [Mass/Vol]on 07-06 Prealbumin Nephelometry [Mass/Vol] 30 mg/dL Normal 17- [facility] Comment on above: Order Comment: Speci men Type: BLOOD SPECIMENOrdering Facility: [facility] Address: [address] [address] Performed By: #### 2 4321-2, 06359-1, 53396-0, 2777-1 ####[facility]ORATORYCLIA [id number] [place] [address] [place] THERAPY NTon 08-01-2021 THERAPY NT Normal [facility] THERAPY NT Normal [facility] TYPE AND SCREENon 08-01-2021 ABO O Normal [facility] Comment on above: Order Comment: Speci men Type: BLOOD SPECIMENOrdering Facility: [facility] Address: [address] [place] [address] Performed By: #### T SCR ####[facility] BLO[facility] BANKCLIA [id number] [address] [facility] HISTORICAL AB SCR STATUS Negative Normal [facility] Comment on above: Order Comment: Speci men Type: BLOOD SPECIMENOrdering Facility: [facility] Address: [address] [place] [address] Performed By: #### T SCR ####[facility] BLOOD BANKCLIA [id number] [address] [place] Rh Nom (Bld) Positive [facility] Comment on above: Order Comment: Speci men Type: BLOOD SPECIMENOrdering Facility: [facility] Address: [address] [place] [address] Performed By: #### T SCR ####[facility] BLOOD BANKCLIA [id number] [address] [facility] TYPE AND SCREEN EXPIRATION 08/04/2021 23:59 Normal [facility] Comment on above: Order Comment: Speci men Type: BLOOD SPECIMENOrdering Facility: [facility] Address: [address] [place] [address] Performed By: #### T SCR ####[facility] BLOOD BANKCLIA [id number] [address] [place] XR CHEST 1V FRONTALon 2021 XR CHEST 1V FRONTAL Normal [facility] aPTT PPPon 08-01-2021 aPTT Coag (PPP) [Time] 50.9 s High 23.0-32.4 [facility] Comment on above: Order Comment: Speci men Type: BLOOD SPECIMENOrdering Facility: [facility] Address: [address] [place] [address] Performed By: #### 1 4979-9 ####[facility] LABORATORYCLIA [id number] [address] STATES [facility] CBC W Auto Differential pane l (Bld)on 07-31-2021 Basophils (Bld) [#/Vol] 0.05 10*3/uL Normal <0.11 [facility] Comment on above: Order Comment: Speci men Type: BLOOD SPECIMENOrdering Facility: [facility] Address: [address] [place] [address] Performed By: #### 5 7021-8 ####[facility] LABORATORYCLIA [id number] [address] Basophils/100 WBC (Bld) 0.4 % Normal [facility] Comment on above: Order Comment: Speci men Type: BLOOD SPECIMENOrdering Facility: [facility] Address: [address] [place] [address] Performed By: #### 5 7021-8 ####[facility] LABORATORYCLIA [id number] [address] Differential cell count method Nom (Bld) Auto Normal [facility] Comment on above: Order Comment: Speci men Type: BLOOD SPECIMENOrdering Facility: [facility] Address: [address] [place] [address] Performed By: #### 5 7021-8 ####[facility] LABORATORYCLIA [id number] [address] [place] Eosinophils (Bld) [#/Vol] 0.51 10*3/uL High <0.46 [facility] Comment on above: Order Comment: Speci men Type: BLOOD SPECIMENOrdering Facility: [facility] Address: [address] [place] [address] Performed By: #### 5 7021-8 ####[facility] LABORATORYCLIA [id number] [place] [address] Eosinophils/100 WBC (Bld) 4.5 % Normal [facility] Comment on above: Order Comment: Speci men Type: BLOOD SPECIMENOrdering Facility: [facility] Address: [address] [place] [address] Performed By: #### 5 7021-8 ####[facility] LABORATORYCLIA [id number] [address] Erythrocyte distribution width (RBC) [Ratio] 17.5 % High 11.5-15.0 [facility] Comment on above: Order Comment: Speci men Type: BLOOD SPECIMENOrdering Facility: [facility] Address: [address] [place] [address] Performed By: #### 5 7021-8 ####[facility] LABORATORYCLIA [id number] [address] Hematocrit (Bld) [Volume fraction] 30.4 % Low 39.0-51.0 [facility] Comment on above: Order Comment: Speci men Type: BLOOD SPECIMENOrdering Facility: [facility] Address: [address] [place] [address] Performed By: #### 5 7021-8 ####[facility] LABORATORYCLIA [id number] [address] Hemoglobin (Bld) [Mass/Vol] 9.2 g/dL Low 13.0-17.0 [facility] Comment on above: Order Comment: Speci men Type: BLOOD SPECIMENOrdering Facility: [facility] Address: [address] [place] [address] Performed By: #### 5 7021-8 ####[facility] LABORATORYCLIA [id number] [address] IMMATURE GRAN % 0.5 % Normal [facility] Comment on above: Order Comment: Speci men Type: BLOOD SPECIMENOrdering Facility: [facility] Address: [address] [place] [address] Performed By: #### 5 7021-8 ####[facility] LABORATORYCLIA [id number] [address] IMMATURE GRAN ABS 0.06 k/uL Normal <0.10 [facility] Comment on above: Order Comment: Speci men Type: BLOOD SPECIMENOrdering Facility: [facility] Address: [address] [place] [address] Performed By: #### 5 7021-8 ####[facility] LABORATORYCLIA [id number] [address] Lymphocytes (Bld) [#/Vol] 1.99 10*3/uL Normal 1.00-4.00 [facility] Comment on above: Order Comment: Speci men Type: BLOOD SPECIMENOrdering Facility: [facility] Address: [address] [place] [address] Performed By: #### 5 7021-8 ####[facility] LABORATORYCLIA [id number] [address] Lymphocytes/100 WBC (Bld) 17.6 % Normal [facility] Comment on above: Order Comment: Speci men Type: BLOOD SPECIMENOrdering Facility: [facility] Address: [address] [place] [address] Performed By: #### 5 7021-8 ####[facility] LABORATORYCLIA [id number] [address] MCH (RBC) [Entitic mass] 28.4 pg Normal 26.0-34.0 [facility] Comment on above: Order Comment: Speci men Type: BLOOD SPECIMENOrdering Facility: [facility] Address: [address] [place] [address] Performed By: #### 5 7021-8 ####[facility] LABORATORYCLIA [id number] [address] MCHC (RBC) [Mass/Vol] 30.3 g/dL Low 30.5-36.0 [facility] Comment on above: Order Comment: Speci men Type: BLOOD SPECIMENOrdering Facility: [facility] Address: [address] [place] [address] Performed By: #### 5 7021-8 ####[facility]ORATORYCLIA [id number] [address] STATES [facility] MCV (RBC) [Entitic vol] 93.8 fL Normal 80.0-100.0 [facility] Comment on above: Order Comment: Speci men Type: BLOOD SPECIMENOrdering Facility: [facility] Address: [address] [place] [address] Performed By: #### 5 7021-8 ####[facility] LABORATORYCLIA [id number] [address] [place] Monocytes (Bld) [#/Vol] 0.57 10*3/uL Normal <0.87 [facility] Comment on above: Order Comment: Speci men Type: BLOOD SPECIMENOrdering Facility: [facility] Address: [address] [place] [address] Performed By: #### 5 7021-8 ####[facility] LABORATORYCLIA [id number] [address] Monocytes/100 WBC (Bld) 5.0 % Normal [facility] Comment on above: Order Comment: Speci men Type: BLOOD SPECIMENOrdering Facility: [facility] Address: [address] [place] [address] Performed By: #### 5 7021-8 ####[facility] LABORATORYCLIA [id number] [address] [place] Neutrophils (Bld) [#/Vol] 8.12 10*3/uL High 1.45-7.50 [facility] Comment on above: Order Comment: Speci men Type: BLOOD SPECIMENOrdering Facility: [facility] Address: [address] [place] [address] Performed By: #### 5 7021-8 ####[facility] LABORATORYCLIA [id number] [address] [place] Neutrophils/100 WBC (Bld) 72.0 % Normal [facility] Comment on above: Order Comment: Speci men Type: BLOOD SPECIMENOrdering Facility: [facility] Address: [facility] [address] Performed By: #### 5 7021-8 ####[facility] LABORATORYCLIA [id number] [address] [place] Nucleated RBC (Bld) [#/Vol] 10*3/uL Normal <0.01 [facility] Comment on above: Order Comment: Speci men Type: BLOOD SPECIMENOrdering Facility: [facility] Address: [address] [place], [place] [address] Performed By: #### 5 7021-8 ####[facility] LABORATORYCLIA [id number] [address] [place] Nucleated RBC/100 WBC (Bld) [Ratio] 0.0 /100 WBC Normal [facility] Comment on above: Order Comment: Speci men Type: BLOOD SPECIMENOrdering Facility: [facility] Address: [address] [place], [place] [address] Performed By: #### 5 7021-8 ####[facility] LABORATORYCLIA [id number] [address] [place] Platelet mean volume (Bld) [Entitic vol] 10.9 fL Normal 9.0-12.7 [facility] Comment on above: Order Comment: Speci men Type: BLOOD SPECIMENOrdering Facility: [facility] Address: [address] Performed By: #### 5 7021-8 ####[facility] LABORATORYCLIA [id number] [place] [address] [place] Platelets (Bld) [#/Vol] 303 10*3/uL Normal 150-400 [facility] Comment on above: Order Comment: Speci men Type: BLOOD SPECIMENOrdering Facility: [facility] Address: [address] Performed By: #### 5 7021-8 ####[facility] LABORATORYCLIA [id number] [place] [address] [place] RBC (Bld) [#/Vol] 3.24 10*6/uL Low 4.20-6.00 [facility] Comment on above: Order Comment: Speci men Type: BLOOD SPECIMENOrdering Facility: [facility] Address: [address] [place] [address] Performed By: #### 5 7021-8 ####[facility] LABORATORYCLIA [id number] [address] OF [facility] WBC (Bld) [#/Vol] 11.30 10*3/uL High 3.70-11.00 [facility] Comment on above: Order Comment: Speci men Type: BLOOD SPECIMENOrdering Facility: [facility] Address: [address] [place] [address] Performed By: #### 5 7021-8 ####[facility] LABORATORYCLIA [id number] [address] NURSING PROGon 07-31-2021 NURSING PROG [facility] aPTT PPPon 07-31-2021 aPTT Coag (PPP) [Time] 64.9 s High 23.0-32.4 [facility] Comment on above: Order Comment: Speci men Type: BLOOD SPECIMENOrdering Facility: [facility] Address: [address] [place] [address] Performed By: #### 1 4979-9 ####[facility] LABORATORYCLIA [id number] [address] [place] ALLIED HEALTHon 07-30-2021 ALLIED HEALTH Normal [facility] Bacteria CSF Culton 07-31-19 22 Bacteria identified Cx Nom (CSF) CULTURE, CSF: No growth 14 days GRAM STAIN: No organisms seen Few Mononuclear cells Rare Polymorphonuclear leukocytes Gram stain performed on cytospun specimen. Normal [facility] Comment on above: Performed By: #### 6 06-4 ####[facility] LABORATORY[facility]IA [id number] [address] Basic metabolic 2000 panelon 07-30-2021 Anion gap [Moles/Vol] 9 mmol/L Normal 9-18 [facility] Comment on above: Order Comment: Speci men Type: BLOOD SPECIMENOrdering Facility: [facility] Address: [address] [place] [address] Performed By: #### 2 777-1, 57283-0, ####[facility]ORATORYCLIA [id number] [place] [address] [place] Calcium [Mass/Vol] 8.9 mg/dL Normal 8.5-10.2 [facility] Comment on above: Order Comment: Speci men Type: BLOOD SPECIMENOrdering Facility: [facility] Address: [address] [place] [address] Performed By: #### 2 777-1, 82264-7, ####[facility] LABORATORYCLIA [id number] [place] [address] [place] Chloride [Moles/Vol] 95 mmol/L Low 97-105 [facility] Comment on above: Order Comment: Speci men Type: BLOOD SPECIMENOrdering Facility: [facility] Address: [address] [place] [address] Performed By: #### 2 777-1, 91217-8, ####[facility]ORATORYCLIA [id number] [place] [address] [place] CO2 [Moles/Vol] 28 mmol/L Normal 22-30 [facility] Comment on above: Order Comment: Speci men Type: BLOOD SPECIMENOrdering Facility: [facility] Address: [address] [place] [address] Performed By: #### 2 777-1, 67139-7, ####[facility]ATORYCLIA [id number] [place] [address] [place] Creatinine [Mass/Vol] 0.67 mg/dL Low 0.73-1.22 [facility] Comment on above: Order Comment: Shira feldman Type: BLOOD SPECIMENOrdering Facility: [facility] Address: [address] [id number] Performed By: #### 2 777-1, 49302-1, ####[facility]ORATORYCLIA [id number] [place] [address] [place] ESTIMATED GLOMERULAR FILTRATION RATE 101 mL/min/1.73m??? Normal >=60 [facility] Comment on above: Order Comment: Johncara feldman Type: BLOOD SPECIMENOrdering Facility: [facility] Address: [address] [place], [place] [id number] Result Comment: Luzmaria mated Glomerular Filtration Rate [...] actual GFR. Performed By: #### 2 777-1, 29740-7, ####[facility]ATORYCLIA [id number] [place] [address] [place] Glucose [Mass/Vol] 125 mg/dL High 74-99 [facility] Comment on above: Order Comment: Shira feldman Type: BLOOD SPECIMENOrdering Facility: [facility] Address: [address] [place] [address] Result Comment: The [place] Diabetes Association (ADA) provides guidance for cutoff [...] Standards of Medical Care in Diabetes 2016, [place] [employer]. Diabetes Care. 2016.39(Suppl 1). Performed By: #### 2 777-1, 01801-5, ####[facility]ORATORYCLIA [id number] [address] STATES OF [facility] Potassium [Moles/Vol] 3.9 mmol/L Normal 3.7-5.1 [facility] Comment on above: Order Comment: Speci men Type: BLOOD SPECIMENOrdering Facility: [facility] Address: [address] [place] [address] Performed By: #### 2 777-1, 64630-0, ####[facility]ATORYCLIA [id number] [address] STATES [place] [facility] Sodium [Moles/Vol] 132 mmol/L Low 136-144 [facility] Comment on above: Order Comment: Speci men Type: BLOOD SPECIMENOrdering Facility: [facility] Address: [address] [place] [address] Performed By: #### 2 777-1, 74716-4, ####[facility]ATORYCLIA [id number] [address] STATES [facility] Urea nitrogen [Mass/Vol] 38 mg/dL High 9-24 [facility] Comment on above: Order Comment: Speci men Type: BLOOD SPECIMENOrdering Facility: [facility] Address: [address] [place] [address] Performed By: #### 2 777-1, 11382-2, ####[facility]ORYCLIA [id number] [address] [place] CBC W Auto Differential pane l (Bld)on 07-30-2021 Basophils (Bld) [#/Vol] 0.04 10*3/uL Normal <0.11 [facility] Comment on above: Order Comment: Speci men Type: BLOOD SPECIMENOrdering Facility: [facility] Address: [address] [place] [address] Performed By: #### 5 7021-8 ####[facility]ORATORYCLIA [id number] [address] [place] Basophils/100 WBC (Bld) 0.4 % Normal [facility] Comment on above: Order Comment: Speci men Type: BLOOD SPECIMENOrdering Facility: [facility] Address: [address] [place] [address] Performed By: #### 5 7021-8 ####[facility]ORYCLIA [id number] [address] Differential cell count method Nom (Bld) Auto Normal [facility] Comment on above: Order Comment: Speci men Type: BLOOD SPECIMENOrdering Facility: [facility] Address: [address] [place] [address] Performed By: #### 5 7021-8 ####[facility]ATORYCLIA [id number] [address] [place] Eosinophils (Bld) [#/Vol] 0.30 10*3/uL Normal <0.46 [facility] Comment on above: Order Comment: Speci men Type: BLOOD SPECIMENOrdering Facility: [facility] Address: [address] [place] [address] Performed By: #### 5 7021-8 ####[facility]ORYCLIA [id number] [address] [place] Eosinophils/100 WBC (Bld) 2.7 % Normal [facility] Comment on above: Order Comment: Speci men Type: BLOOD SPECIMENOrdering Facility: [facility] Address: [address] [place] [address] Performed By: #### 5 7021-8 ####[facility]ATORYCLIA [id number] [address] Erythrocyte distribution width (RBC) [Ratio] 17.2 % High 11.5-15.0 [facility] Comment on above: Order Comment: Speci men Type: BLOOD SPECIMENOrdering Facility: [facility] Address: [address] [place] [address] Performed By: #### 5 7021-8 ####[facility]ATORYCLIA [id number] [address] Hematocrit (Bld) [Volume fraction] 30.8 % Low 39.0-51.0 [facility] Comment on above: Order Comment: Speci men Type: BLOOD SPECIMENOrdering Facility: [facility] Address: [address] [place] [address] Performed By: #### 5 7021-8 ####[facility]ATORYCLIA [id number] [address] Hemoglobin (Bld) [Mass/Vol] 9.4 g/dL Low 13.0-17.0 [facility] Comment on above: Order Comment: Speci men Type: BLOOD SPECIMENOrdering Facility: [facility] Address: [address] [place] [address] Performed By: #### 5 7021-8 ####[facility]ORYCLIA [id number] [address] IMMATURE GRAN % 0.5 % Normal [facility] Comment on above: Order Comment: Speci men Type: BLOOD SPECIMENOrdering Facility: [facility] Address: [address] [place] [address] Performed By: #### 5 7021-8 ####[facility]ATORYCLIA [id number] [address] IMMATURE GRAN ABS 0.06 k/uL Normal <0.10 [facility] Comment on above: Order Comment: Speci men Type: BLOOD SPECIMENOrdering Facility: [facility] Address: [address] [place] [address] Performed By: #### 5 7021-8 ####[facility]ATORYCLIA [id number] [address] Lymphocytes (Bld) [#/Vol] 1.68 10*3/uL Normal 1.00-4.00 [facility] Comment on above: Order Comment: Speci men Type: BLOOD SPECIMENOrdering Facility: [facility] Address: [address] [place] [address] Performed By: #### 5 7021-8 ####[facility]ATORYCLIA [id number] [address] Lymphocytes/100 WBC (Bld) 15.3 % Normal [facility] Comment on above: Order Comment: Speci men Type: BLOOD SPECIMENOrdering Facility: [facility] Address: [address] [place] [address] Performed By: #### 5 7021-8 ####[facility]ATORYCLIA [id number] [address] MCH (RBC) [Entitic mass] 28.0 pg Normal 26.0-34.0 [facility] Comment on above: Order Comment: Speci men Type: BLOOD SPECIMENOrdering Facility: [facility] Address: [address] [place] [address] Performed By: #### 5 7021-8 ####[facility]ATORYCLIA [id number] [address] STATES [facility] MCHC (RBC) [Mass/Vol] 30.5 g/dL Normal 30.5-36.0 [facility] Comment on above: Order Comment: Speci men Type: BLOOD SPECIMENOrdering Facility: [facility] Address: [address] [place] [address] Performed By: #### 5 7021-8 ####[facility]ATORYCLIA [id number] [address] STATES [facility] MCV (RBC) [Entitic vol] 91.7 fL Normal 80.0-100.0 [facility] Comment on above: Order Comment: Speci men Type: BLOOD SPECIMENOrdering Facility: [facility] Address: [address] [place] [address] Performed By: #### 5 7021-8 ####[facility]ORATORYCLIA [id number] [place] [address] [place] Monocytes (Bld) [#/Vol] 0.53 10*3/uL Normal <0.87 [facility] Comment on above: Order Comment: Speci men Type: BLOOD SPECIMENOrdering Facility: [facility] Address: [address] [place] [address] Performed By: #### 5 7021-8 ####[facility]ATORYCLIA [id number] [address] [place] Monocytes/100 WBC (Bld) 4.8 % Normal [facility] Comment on above: Order Comment: Speci men Type: BLOOD SPECIMENOrdering Facility: [facility] Address: [address] [place] [address] Performed By: #### 5 7021-8 ####[facility]ATORYCLIA [id number] [address] [place] Neutrophils (Bld) [#/Vol] 8.39 10*3/uL High 1.45-7.50 [facility] Comment on above: Order Comment: Speci men Type: BLOOD SPECIMENOrdering Facility: [facility] Address: [address] [place] [address] Performed By: #### 5 7021-8 ####[facility]ATORYCLIA [id number] [address] Neutrophils/100 WBC (Bld) 76.3 % Normal [facility] Comment on above: Order Comment: Speci men Type: BLOOD SPECIMENOrdering Facility: [facility] Address: [address] [place] [address] Performed By: #### 5 7021-8 ####[facility]ORATORYCLIA [id number] [place] [address] [place] Nucleated RBC (Bld) [#/Vol] 10*3/uL Normal <0.01 [facility] Comment on above: Order Comment: Speci men Type: BLOOD SPECIMENOrdering Facility: [facility] Address: [address] [place] [address] Performed By: #### 5 7021-8 ####[facility]ATORYCLIA [id number] [address] [place] Nucleated RBC/100 WBC (Bld) [Ratio] 0.0 /100 WBC Normal [facility] Comment on above: Order Comment: Speci men Type: BLOOD SPECIMENOrdering Facility: [facility] Address: [address] [place] [address] Performed By: #### 5 7021-8 ####[facility]ATORYCLIA [id number] [address] [place] Platelet mean volume (Bld) [Entitic vol] 10.9 fL Normal 9.0-12.7 [facility] Comment on above: Order Comment: Speci men Type: BLOOD SPECIMENOrdering Facility: [facility] Address: [address] [place] [address] Performed By: #### 5 7021-8 ####[facility]ATORYCLIA [id number] [address] OF [facility] Platelets (Bld) [#/Vol] 287 10*3/uL Normal 150-400 [facility] Comment on above: Order Comment: Speci men Type: BLOOD SPECIMENOrdering Facility: [facility] Address: [address] [place] [address] Performed By: #### 5 7021-8 ####[facility]ATORYCLIA [id number] [address] [place] RBC (Bld) [#/Vol] 3.36 10*6/uL Low 4.20-6.00 [facility] Comment on above: Order Comment: Speci men Type: BLOOD SPECIMENOrdering Facility: [facility] Address: [address] [place] [address] Performed By: #### 5 7021-8 ####[facility]ORYCLIA [id number] [address] [place] WBC (Bld) [#/Vol] 11.00 10*3/uL Normal 3.70-11.00 [facility] Comment on above: Order Comment: Speci men Type: BLOOD SPECIMENOrdering Facility: [facility] Address: [address] [place] [address] Performed By: #### 5 7021-8 ####[facility]ORATORYCLIA [id number] [address] STATES [place] [facility] CSF MANUAL DIFFon 07-30-2021 DIF TTL, CSF 100 cells counted Normal [facility] Comment on above: Order Comment: Speci men Type: CEREBROSPINAL FLUIDOrdering Facility: [facility] Address: [address] [place] [address] Performed By: #### L [id number], KWU0024, 18345-8 ####[facility]ATORYCLIA [id number] [address] [place] EOSIN%, CSF 0 % Normal [facility] Comment on above: Order Comment: Speci men Type: CEREBROSPINAL FLUIDOrdering Facility: [facility] Address: [address] [place] [address] Performed By: #### L [id number], QCI4432, 57292-6 ####[facility]ATORYCLIA [id number] [address] [place] LYMPH%, CSF 75 % Normal 50-90 [facility] Comment on above: Order Comment: Speci men Type: CEREBROSPINAL FLUIDOrdering Facility: [facility] Address: [address] [place] [address] Performed By: #### L [id number], HKC6096, 96842-9 ####[facility]ORYCLIA [id number] [address] [place] MACRO%, CSF 9 % High <1 [facility] Comment on above: Order Comment: Speci men Type: CEREBROSPINAL FLUIDOrdering Facility: [facility] Address: [address] [place] [address] Performed By: #### L [id number], KMM6960, 86364-2 ####[facility]ORYCLIA [id number] [address] [place] MONO%, CSF 10 % Normal 10-50 [facility] Comment on above: Order Comment: Speci men Type: CEREBROSPINAL FLUIDOrdering Facility: [facility] Address: [address] [place] [address] Performed By: #### L CZ6508, IZX8390, 79842-6 ####[facility]ORYCLIA [id number] [address] OF [facility] OTHER CL%, CSF 4 % Normal [facility] Comment on above: Order Comment: Speci men Type: CEREBROSPINAL FLUIDOrdering Facility: [facility] Address: [address] [place] [address] Result Comment: Path review to follow. Performed By: #### L [id number], DOH1033, 41534-0 ####[facility]ATORYCLIA [id number] [address] REAC LYMPH %, CSF 2 % Normal [facility] Comment on above: Order Comment: Speci men Type: CEREBROSPINAL FLUIDOrdering Facility: [facility] Address: [address] [place] [address] Performed By: #### L [id number], JXQ6600, 82575-3 ####[facility]ORYCLIA [id number] [address] [place] CSF PATHOLOGIST INTERP (LAB REFLEX ORDER-NO BILL)on 07-30-2021 CSF STAFF REVIEW Negative Normal [facility] Comment on above: Order Comment: Speci men Type: CEREBROSPINAL FLUIDOrdering Facility: [facility] Address: [address] [place] [address] Performed By: #### L [id number], QQS8958, 17889-0 ####[facility]ATORYCLIA [id number] [address] Pathologist name Reviewed by Eloise rebolledo MD [facility] Comment on above: Order Comment: Speci men Type: CEREBROSPINAL FLUIDOrdering Facility: [facility] Address: [address] [place] [address] Performed By: #### L [id number], DYJ0475, 41418-7 ####[facility]ORYCLIA [id number] [address] BRAIN WO IVCONon 07-31-19 CT BRAIN WO IVCON Normal [facility] Cell count panel (CSF)on Clarity (CSF) Clear Normal Clear [facility] Comment on above: Order Comment: Speci men Type: CEREBROSPINAL FLUIDOrdering Facility: [facility] Address: [address] [place] [address] Performed By: #### L WE3470, JHY4118, 76304-6 ####[facility]ORYCLIA [id number] [address] Clarity (Unsp spec) Clear Normal Clear [facility] Comment on above: Order Comment: Speci men Type: CEREBROSPINAL FLUIDOrdering Facility: [facility] Address: [address] [place] [address] Performed By: #### L KX5388, RRG1965, 37217-6 ####[facility]ATORYCLIA [id number] [address] Color (CSF) Colorless Normal Colorless [facility] Comment on above: Order Comment: Speci men Type: CEREBROSPINAL FLUIDOrdering Facility: [facility] Address: [address] [place] [address] Performed By: #### L [id number], MIA1492, 23182-8 ####[facility]ORYCLIA [id number] [address] Color (Spun CSF) Colorless Normal Colorless [facility] Comment on above: Order Comment: Speci men Type: CEREBROSPINAL FLUIDOrdering Facility: [facility] Address: [address] [place] [address] Performed By: #### L [id number], HHL1947, 95964-5 ####[facility]ATORYCLIA [id number] [place] [address] [place] CSF TUBE NUMBER [employer] Normal [facility] Comment on above: Order Comment: Speci men Type: CEREBROSPINAL FLUIDOrdering Facility: [facility] Address: [address] [place] [address] Performed By: #### L SS4484, NID3886, 97171-9 ####[facility]ATORYCLIA [id number] [address] RBC Manual cnt (CSF) [#/Vol] 9 cells/uL High 0-5 [facility] Comment on above: Order Comment: Speci men Type: CEREBROSPINAL FLUIDOrdering Facility: [facility] Address: [address] [place] [address] Performed By: #### L TU4808, KCS7170, 38999-6 ####[facility]ATORYCLIA [id number] [address] WBC Manual cnt (CSF) [#/Vol] 8 cells/uL High 0-5 [facility] Comment on above: Order Comment: Speci men Type: CEREBROSPINAL FLUIDOrdering Facility: [facility] Address: [address] [place] [address] Performed By: #### L [id number], UQV4966, 23375-7 ####[facility]ATORYCLIA [id number] [address] [place] Glucose CSF-mCncon 2 Glucose (CSF) [Mass/Vol] 65 mg/dL Normal 40-70 [facility] Comment on above: Order Comment: Speci men Type: CEREBROSPINAL FLUIDOrdering Facility: [facility] Address: [address] [place] [address] Result Comment: Lumb ar CSF glucose values of healthy patients are approximately 60% of the plasma values and must always be compared with a concurrently measured plasma value for adequate clinical interpretation.References: 1. Glucose HK (GLUC3) [package insert V 12.0 French]. [employer], [place], [place]. September 2015. 2. Teresa H., Loki, H. (2015). Chapter 7: Glucose and Lactate. F. Deisenhammer et al.(eds.), Cerebrospinal Fluid in Clinical Neurology. [place]: [employer]. Performed By: #### 2 342-4, 2880-3 ####[facility]ORATORYCLIA [id number] [address] Magnesium SerPl-mCncon 07-30 Magnesium [Mass/Vol] 2.5 mg/dL High 1.7-2.3 [facility] Comment on above: Order Comment: Speci men Type: BLOOD SPECIMENOrdering Facility: [facility] Address: [address] [place] [address] Performed By: #### 2 777-1, 34427-8, ####[facility]ORATORYCLIA [id number] [address] NURSING PROGon 07-30-2021 NURSING PROG Normal [facility] Phosphate SerPl-mCncon 07-30 Phosphate [Mass/Vol] 2.4 mg/dL Low 2.7-4.8 [facility] Comment on above: Order Comment: Speci men Type: BLOOD SPECIMENOrdering Facility: [facility] Address: [address] [place] [address] Performed By: #### 2 777-1, 68893-5, ####[facility]ATORYCLIA [id number] [address] STATES [facility] Prot CSF-mCncon 07-30-2021 Protein (CSF) [Mass/Vol] 50 mg/dL High 15-45 [facility] Comment on above: Order Comment: Speci men Type: CEREBROSPINAL FLUIDOrdering Facility: [facility] Address: [address] [place] [address] Performed By: #### 2 342-4, 288-3 ####[facility]ATORYCLIA [id number] [address] [place] aPTT PPPon 07-30-2021 aPTT Coag (PPP) [Time] 64.1 s High 23.0-32.4 [facility] Comment on above: Order Comment: Speci men Type: BLOOD SPECIMENOrdering Facility: [facility] Address: [address] [address] Performed By: #### 1 4979-9 ####[facility]ORATORYCLIA [id number] [address] [place] Bacteria CSF Culton 07-30-19 22 Bacteria identified Cx Nom (CSF) CULTURE, CSF: No growth 14 days GRAM STAIN: No cells or organisms seen Gram stain performed on cytospun specimen. Gram stain confirmed by microbiology Normal [facility] Comment on above: Performed By: #### 6 06-4 ####[facility]ORATORYCLIA [id number] [address] [place] CASE MANAGEMon 07-29-2021 CASE MANAGEM Normal [facility] CBC W Auto Differential pane l (Bld)on 07-29-2021 Basophils (Bld) [#/Vol] 0.03 10*3/uL Normal <0.11 [facility] Comment on above: Order Comment: Speci men Type: BLOOD SPECIMENOrdering Facility: [facility] Address: [address] [place] [address] Performed By: #### 5 7021-8 ####[facility]ORATORYCLIA [id number] [address] [place] Basophils/100 WBC (Bld) 0.3 % Normal [facility] Comment on above: Order Comment: Speci men Type: BLOOD SPECIMENOrdering Facility: [facility] Address: [address] [address] Performed By: #### 5 7021-8 ####[facility]ATORYCLIA [id number] [address] [place] Differential cell count method Nom (Bld) Auto Normal [facility] Comment on above: Order Comment: Speci men Type: BLOOD SPECIMENOrdering Facility: [facility] Address: [address] [address] Performed By: #### 5 7021-8 ####[facility]ORATORYCLIA [id number] [address] [place] Eosinophils (Bld) [#/Vol] 0.40 10*3/uL Normal <0.46 [facility] Comment on above: Order Comment: Speci men Type: BLOOD SPECIMENOrdering Facility: [facility] Address: [address] [place] [address] Performed By: #### 5 7021-8 ####[facility]ORYCLIA [id number] [address] Eosinophils/100 WBC (Bld) 3.9 % Normal [facility] Comment on above: Order Comment: Speci men Type: BLOOD SPECIMENOrdering Facility: [facility] Address: [address] [place] [address] Performed By: #### 5 7021-8 ####[facility]ATORYCLIA [id number] [address] Erythrocyte distribution width (RBC) [Ratio] 17.1 % High 11.5-15.0 [facility] Comment on above: Order Comment: Speci men Type: BLOOD SPECIMENOrdering Facility: [facility] Address: [address] [place] [address] Performed By: #### 5 7021-8 ####[facility]ORATORYCLIA [id number] [address] [place] Hematocrit (Bld) [Volume fraction] 32.0 % Low 39.0-51.0 [facility] Comment on above: Order Comment: Speci men Type: BLOOD SPECIMENOrdering Facility: [facility] Address: [address] [place] [address] Performed By: #### 5 7021-8 ####[facility]ORATORYCLIA [id number] [address] [place] Hemoglobin (Bld) [Mass/Vol] 9.7 g/dL Low 13.0-17.0 [facility] Comment on above: Order Comment: Speci men Type: BLOOD SPECIMENOrdering Facility: [facility] Address: [address] [place] [address] Performed By: #### 5 7021-8 ####[facility] LABORATORYCLIA [id number] [address] IMMATURE GRAN % 0.6 % Normal [facility] Comment on above: Order Comment: Speci men Type: BLOOD SPECIMENOrdering Facility: [facility] Address: [address] [place] [address] Performed By: #### 5 7021-8 ####[facility] LABORATORYCLIA [id number] [address] IMMATURE GRAN ABS 0.06 k/uL Normal <0.10 [facility] Comment on above: Order Comment: Speci men Type: BLOOD SPECIMENOrdering Facility: [facility] Address: [address] [place] [address] Performed By: #### 5 7021-8 ####[facility]ATORYCLIA [id number] [address] Lymphocytes (Bld) [#/Vol] 1.96 10*3/uL Normal 1.00-4.00 [facility] Comment on above: Order Comment: Speci men Type: BLOOD SPECIMENOrdering Facility: [facility] Address: [address] [place] [address] Performed By: #### 5 7021-8 ####[facility]ORATORYCLIA [id number] [address] Lymphocytes/100 WBC (Bld) 19.0 % Normal [facility] Comment on above: Order Comment: Speci men Type: BLOOD SPECIMENOrdering Facility: [facility] Address: [address] [place] [address] Performed By: #### 5 7021-8 ####[facility]ATORYCLIA [id number] [address] [place] MCH (RBC) [Entitic mass] 28.0 pg Normal 26.0-34.0 [facility] Comment on above: Order Comment: Speci men Type: BLOOD SPECIMENOrdering Facility: [facility] Address: [address] [place] [address] Performed By: #### 5 7021-8 ####[facility]ATORYCLIA [id number] [address] [place] MCHC (RBC) [Mass/Vol] 30.3 g/dL Low 30.5-36.0 [facility] Comment on above: Order Comment: Speci men Type: BLOOD SPECIMENOrdering Facility: [facility] Address: [address] [place] [address] Performed By: #### 5 7021-8 ####[facility]ORATORYCLIA [id number] [address] [place] MCV (RBC) [Entitic vol] 92.5 fL Normal 80.0-100.0 [facility] Comment on above: Order Comment: Speci men Type: BLOOD SPECIMENOrdering Facility: [facility] Address: [address] [place] [address] Performed By: #### 5 7021-8 ####[facility]ORATORYCLIA [id number] [address] [place] Monocytes (Bld) [#/Vol] 0.53 10*3/uL Normal <0.87 [facility] Comment on above: Order Comment: Speci men Type: BLOOD SPECIMENOrdering Facility: [facility] Address: [address] [place] [address] Performed By: #### 5 7021-8 ####[facility]ORATORYCLIA [id number] [address] Monocytes/100 WBC (Bld) 5.2 % Normal [facility] Comment on above: Order Comment: Speci men Type: BLOOD SPECIMENOrdering Facility: [facility] Address: [address] [place] [address] Performed By: #### 5 7021-8 ####[facility]ATORYCLIA [id number] [address] [place] Neutrophils (Bld) [#/Vol] 7.31 10*3/uL Normal 1.45-7.50 [facility] Comment on above: Order Comment: Speci men Type: BLOOD SPECIMENOrdering Facility: [facility] Address: [address] [address] Performed By: #### 5 7021-8 ####[facility]ORATORYCLIA [id number] [address] [place] Neutrophils/100 WBC (Bld) 71.0 % Normal [facility] Comment on above: Order Comment: Speci men Type: BLOOD SPECIMENOrdering Facility: [facility] Address: [facility] [place] [address] Performed By: #### 5 7021-8 ####[facility]ORATORYCLIA [id number] [address] [place] Nucleated RBC (Bld) [#/Vol] 10*3/uL Normal <0.01 [facility] Comment on above: Order Comment: Speci men Type: BLOOD SPECIMENOrdering Facility: [facility] Address: [address] [place] [address] Performed By: #### 5 7021-8 ####[facility]ATORYCLIA [id number] [address] [place] Nucleated RBC/100 WBC (Bld) [Ratio] 0.0 /100 WBC Normal [facility] Comment on above: Order Comment: Speci men Type: BLOOD SPECIMENOrdering Facility: [facility] Address: [address] [place] [address] Performed By: #### 5 7021-8 ####[facility]ORATORYCLIA [id number] [address] [place] Platelet mean volume (Bld) [Entitic vol] 11.2 fL Normal 9.0-12.7 [facility] Comment on above: Order Comment: Speci men Type: BLOOD SPECIMENOrdering Facility: [facility] Address: [address] [place], [place] [address] Performed By: #### 5 7021-8 ####[facility]ATORYCLIA [id number] [address] Platelets (Bld) [#/Vol] 276 10*3/uL Normal 150-400 [facility] Comment on above: Order Comment: Speci men Type: BLOOD SPECIMENOrdering Facility: [facility] Address: [address] [place] [address] Performed By: #### 5 7021-8 ####[facility]ATORYCLIA [id number] [address] [place] RBC (Bld) [#/Vol] 3.46 10*6/uL Low 4.20-6.00 [facility] Comment on above: Order Comment: Speci men Type: BLOOD SPECIMENOrdering Facility: [facility] Address: [address] [place] [address] Performed By: #### 5 7021-8 ####[facility]ATORYCLIA [id number] [address] WBC (Bld) [#/Vol] 10.29 10*3/uL Normal 3.70-11.00 [facility] Comment on above: Order Comment: Speci men Type: BLOOD SPECIMENOrdering Facility: [facility] Address: [address] [place] [address] Performed By: #### 5 7021-8 ####[facility]ORATORYCLIA [id number] [address] NURSING PROGon 07-29-2021 NURSING PROG Normal [facility] THERAPY NTon 07-29-2021 THERAPY NT Normal [facility] aPTT PPPon 07-29-2021 aPTT Coag (PPP) [Time] 59.2 s High 23.0-32.4 [facility] Comment on above: Order Comment: Speci men Type: BLOOD SPECIMENOrdering Facility: [facility] Address: [address] [place] [address] Performed By: #### 1 4979-9 ####[facility]ORATORYCLIA [id number] [place] [address] [place] ALLIED HEALTHon 07-28-2021 ALLIED HEALTH Normal [facility] Basic metabolic 2000 panelon 07-28-2021 Anion gap [Moles/Vol] 7 mmol/L Low 9-18 [facility] Comment on above: Order Comment: Speci men Type: BLOOD SPECIMENOrdering Facility: [facility] Address: [address] [place] [address] Performed By: #### 1 4338-8, 86609-1, 2777-1, 64106-7 ####[facility]ORATORYCLIA [id number] [place] [address] [place] Calcium [Mass/Vol] 9.0 mg/dL Normal 8.5-10.2 [facility] Comment on above: Order Comment: Speci men Type: BLOOD SPECIMENOrdering Facility: [facility] Address: [address] [place] [address] Performed By: #### 1 4338-8, 42156-8, 2777-1, 50893-8 ####[facility]ORATORYCLIA [id number] [place] [address] [place] Chloride [Moles/Vol] 94 mmol/L Low 97-105 [facility] Comment on above: Order Comment: Speci men Type: BLOOD SPECIMENOrdering Facility: [facility] Address: [address] [place] [address] Performed By: #### 1 4338-8, 41715-4, 277-1, 60911-6 ####[facility]ORATORYCLIA [id number] [place] [id number] [place] CO2 [Moles/Vol] 31 mmol/L High 22-30 [facility] Comment on above: Order Comment: Speci men Type: BLOOD SPECIMENOrdering Facility: [facility] Address: [address] [place] [address] Performed By: #### 1 4338-8, 01099-2, 2776-1, 33462-3 ####[facility] HOSPITALCLIA [id number] [place] [address] [place] [facility] Creatinine [Mass/Vol] 0.75 mg/dL Normal 0.73-1.22 [facility] Comment on above: Order Comment: Speccara feldman Type: BLOOD SPECIMENOrdering Facility: [facility] Address: [address] [address] Performed By: #### 1 4338-8, 14524-7, 2776-, 43364-4 ####[facility] HOSPITALIA [id number] [address] [place] ESTIMATED GLOMERULAR FILTRATION RATE 98 mL/min/1.73m??? Normal >=60 [facility] Comment on above: Order Comment: Shira feldman Type: BLOOD SPECIMENOrdering Facility: [facility] Address: [address] [place] [address] Result Comment: Luzmaria mated Glomerular Filtration Rate [...] actual GFR. Performed By: #### 1 4338-8, 33221-8, 277-1, 33772-3 ####[facility] HOSPITALIA [id number] [place] [id number] [place] [facility] Glucose [Mass/Vol] 122 mg/dL High 74-99 [facility] Comment on above: Order Comment: Speci men Type: BLOOD SPECIMENOrdering Facility: [facility] Address: [address] [address] Result Comment: The [place] [employer] Association (ADA) provides guidance for cutoff [...] Standards of Medical Care in Diabetes 2016, [place] [employer]. Diabetes Care. 2016.39(Suppl 1). Performed By: #### 1 4338-8, 09337-2, 277-, 16767-2 ####[facility]ORATORYCLIA [id number] [place] [address] [place] Potassium [Moles/Vol] 4.0 mmol/L Normal 3.7-5.1 [facility] Comment on above: Order Comment: Shira feldman Type: BLOOD SPECIMENOrdering Facility: [facility] Address: [address] [place] [address] Performed By: #### 1 4338-8, , 2776-05, 87314-1 ####[facility] HOSPITALCLIA [id number] [place] [address] [place] [facility] Sodium [Moles/Vol] 132 mmol/L Low 136-144 [facility] Comment on above: Order Comment: Shira feldman Type: BLOOD SPECIMENOrdering Facility: [facility] Address: [address] [place] [address] Performed By: #### 1 4338-8, 17919-0, 2776-05, 97330-7 ####[facility]ATORYCLIA [id number] [address] [place] Urea nitrogen [Mass/Vol] 34 mg/dL High 9-24 [facility] Comment on above: Order Comment: Shira feldman Type: BLOOD SPECIMENOrdering Facility: [facility] Address: [address] [place] [address] Performed By: #### 1 4338-8, 39196-2, 2776-1, 36347-9 ####[facility]ATORYCLIA [id number] [place] [address] [place] CBC W Auto Differential pane l (Bld)on 07-28-2021 Basophils (Bld) [#/Vol] 0.04 10*3/uL Normal <0.11 [facility] Comment on above: Order Comment: Speci men Type: BLOOD SPECIMENOrdering Facility: [facility] Address: [address] [place] [address] Performed By: #### 5 7021-8 ####[facility]ATORYCLIA [id number] [address] STATES [facility] Basophils/100 WBC (Bld) 0.5 % Normal [facility] Comment on above: Order Comment: Speci men Type: BLOOD SPECIMENOrdering Facility: [facility] Address: [address] [place] [address] Performed By: #### 5 7021-8 ####[facility]ATORYCLIA [id number] [address] Differential cell count method Nom (Bld) Auto Normal [facility] Comment on above: Order Comment: Speci men Type: BLOOD SPECIMENOrdering Facility: [facility] Address: [address] [place] [address] Performed By: #### 5 7021-8 ####[facility]ATORYCLIA [id number] [address] [place] Eosinophils (Bld) [#/Vol] 0.30 10*3/uL Normal <0.46 [facility] Comment on above: Order Comment: Speci men Type: BLOOD SPECIMENOrdering Facility: [facility] Address: [address] [address] Performed By: #### 5 7021-8 ####[facility]ATORYCLIA [id number] [address] Eosinophils/100 WBC (Bld) 3.4 % Normal [facility] Comment on above: Order Comment: Speci men Type: BLOOD SPECIMENOrdering Facility: [facility] Address: [facility] [place] [address] Performed By: #### 5 7021-8 ####[facility]ORATORYCLIA [id number] [address] Erythrocyte distribution width (RBC) [Ratio] 16.9 % High 11.5-15.0 [facility] Comment on above: Order Comment: Speci men Type: BLOOD SPECIMENOrdering Facility: [facility] Address: [address] [place] [address] Performed By: #### 5 7021-8 ####[facility]ATORYCLIA [id number] [address] Hematocrit (Bld) [Volume fraction] 30.3 % Low 39.0-51.0 [facility] Comment on above: Order Comment: Speci men Type: BLOOD SPECIMENOrdering Facility: [facility] Address: [address] [place] [address] Performed By: #### 5 7021-8 ####[facility]ATORYCLIA [id number] [address] Hemoglobin (Bld) [Mass/Vol] 9.2 g/dL Low 13.0-17.0 [facility] Comment on above: Order Comment: Speci men Type: BLOOD SPECIMENOrdering Facility: [facility] Address: [address] [place] [address] Performed By: #### 5 7021-8 ####[facility]ORATORYCLIA [id number] [address] IMMATURE GRAN % 0.6 % Normal [facility] Comment on above: Order Comment: Speci men Type: BLOOD SPECIMENOrdering Facility: [facility] Address: [address] [place] [address] Performed By: #### 5 7021-8 ####[facility]ATORYCLIA [id number] [address] IMMATURE GRAN ABS 0.05 k/uL Normal <0.10 [facility] Comment on above: Order Comment: Speci men Type: BLOOD SPECIMENOrdering Facility: [facility] Address: [address] [place] [address] Performed By: #### 5 7021-8 ####[facility]ORATORYCLIA [id number] [address] [place] [facility] Lymphocytes (Bld) [#/Vol] 1.68 10*3/uL Normal 1.00-4.00 [facility] Comment on above: Order Comment: Speci men Type: BLOOD SPECIMENOrdering Facility: [facility] Address: [address] [place] [address] Performed By: #### 5 7021-8 ####[facility]ATORYCLIA [id number] [address] Lymphocytes/100 WBC (Bld) 19.2 % Normal [facility] Comment on above: Order Comment: Speci men Type: BLOOD SPECIMENOrdering Facility: [facility] Address: [address] [place] [address] Performed By: #### 5 7021-8 ####[facility]ATORYCLIA [id number] [address] [place] [facility] MCH (RBC) [Entitic mass] 28.4 pg Normal 26.0-34.0 [facility] Comment on above: Order Comment: Speci men Type: BLOOD SPECIMENOrdering Facility: [facility] Address: [address] [place] [address] Performed By: #### 5 7021-8 ####[facility]ATORYCLIA [id number] [address] [place] [facility] MCHC (RBC) [Mass/Vol] 30.4 g/dL Low 30.5-36.0 [facility] Comment on above: Order Comment: Speci men Type: BLOOD SPECIMENOrdering Facility: [facility] Address: [address] [place] [address] Performed By: #### 5 7021-8 ####[facility]ATORYCLIA [id number] [address] MCV (RBC) [Entitic vol] 93.5 fL Normal 80.0-100.0 [facility] Comment on above: Order Comment: Speci men Type: BLOOD SPECIMENOrdering Facility: [facility] Address: [address] [place] [address] Performed By: #### 5 7021-8 ####[facility]ORYCLIA [id number] [address] [place] Monocytes (Bld) [#/Vol] 0.58 10*3/uL Normal <0.87 [facility] Comment on above: Order Comment: Speci men Type: BLOOD SPECIMENOrdering Facility: [facility] Address: [address] [place] [address] Performed By: #### 5 7021-8 ####[facility]ATORYCLIA [id number] [address] [place] Monocytes/100 WBC (Bld) 6.6 % Normal [facility] Comment on above: Order Comment: Speci men Type: BLOOD SPECIMENOrdering Facility: [facility] Address: [address] [place] [address] Performed By: #### 5 7021-8 ####[facility]ORYCLIA [id number] [address] [place] Neutrophils (Bld) [#/Vol] 6.11 10*3/uL Normal 1.45-7.50 [facility] Comment on above: Order Comment: Speci men Type: BLOOD SPECIMENOrdering Facility: [facility] Address: [address] [place] [address] Performed By: #### 5 7021-8 ####[facility]ORYCLIA [id number] [address] [place] Neutrophils/100 WBC (Bld) 69.7 % Normal [facility] Comment on above: Order Comment: Speci men Type: BLOOD SPECIMENOrdering Facility: [facility] Address: [address] [place] [address] Performed By: #### 5 7021-8 ####[facility]ORATORYCLIA [id number] [address] [place] Nucleated RBC (Bld) [#/Vol] 10*3/uL Normal <0.01 [facility] Comment on above: Order Comment: Speci men Type: BLOOD SPECIMENOrdering Facility: [facility] Address: [address] [place] [address] Performed By: #### 5 7021-8 ####[facility]ATORYCLIA [id number] [address] [place] Nucleated RBC/100 WBC (Bld) [Ratio] 0.0 /100 WBC Normal [facility] Comment on above: Order Comment: Speci men Type: BLOOD SPECIMENOrdering Facility: [facility] Address: [address] [place] [address] Performed By: #### 5 7021-8 ####[facility]ATORYCLIA [id number] [address] [place] Platelet mean volume (Bld) [Entitic vol] 11.3 fL Normal 9.0-12.7 [facility] Comment on above: Order Comment: Speci men Type: BLOOD SPECIMENOrdering Facility: [facility] Address: [address] [place] [address] Performed By: #### 5 7021-8 ####[facility]ATORYCLIA [id number] [address] [place] Platelets (Bld) [#/Vol] 238 10*3/uL Normal 150-400 [facility] Comment on above: Order Comment: Speci men Type: BLOOD SPECIMENOrdering Facility: [facility] Address: [address] [place] [address] Performed By: #### 5 7021-8 ####[facility]ATORYCLIA [id number] [address] [place] RBC (Bld) [#/Vol] 3.24 10*6/uL Low 4.20-6.00 [facility] Comment on above: Order Comment: Speci men Type: BLOOD SPECIMENOrdering Facility: [facility] Address: [address] [place] [address] Performed By: #### 5 7021-8 ####[facility]ATORYCLIA [id number] [address] WBC (Bld) [#/Vol] 8.76 10*3/uL Normal 3.70-11.00 [facility] Comment on above: Order Comment: Speci men Type: BLOOD SPECIMENOrdering Facility: [facility] Address: [address] [place] [address] Performed By: #### 5 7021-8 ####[facility]ORATORYCLIA [id number] [address] MRI BRAIN WO/W IVCONon 07-28 MRI BRAIN WO/W IVCON Normal [facility] Magnesium SerPl-mCncon 07-28 Magnesium [Mass/Vol] 2.5 mg/dL High 1.7-2.3 [facility] Comment on above: Order Comment: Speci men Type: BLOOD SPECIMENOrdering Facility: [facility] Address: [address] [place] [address] Performed By: #### 1 4338-8, 29184-6, 277-1, 50210-1 ####[facility]ATORYCLIA [id number] [address] NURSING PROGon 07-28-2021 NURSING PROG Normal [facility] NURSING PROG Normal [facility] Phosphate SerPl-mCncon 07-28 Phosphate [Mass/Vol] 2.8 mg/dL Normal 2.7-4.8 [facility] Comment on above: Order Comment: Speci men Type: BLOOD SPECIMENOrdering Facility: [facility] Address: [address] [place] [address] Performed By: #### 1 4338-8, 65344-8, 2777-1, 58733-8 ####[facility]ORYCLIA [id number] [address] [place] Prealbumin [Mass/Vol]on 07-06 Prealbumin Nephelometry [Mass/Vol] 25 mg/dL Normal 17-36 [facility] Comment on above: Order Comment: Speci men Type: BLOOD SPECIMENOrdering Facility: [facility] Address: [address] [place] [address] Performed By: #### 1 4338-8, 61617-0, 2777-1, 54071-1 ####[facility]ATORYCLIA [id number] [place] [address] [place] aPTT PPPon 07-28-2021 aPTT Coag (PPP) [Time] 53.0 s High 23.0-32.4 [facility] Comment on above: Order Comment: Speci men Type: BLOOD SPECIMENOrdering Facility: [facility] Address: [address] [place] [address] Performed By: #### 1 4979-9 ####[facility] HOSPITALCLIA [id number] [address] [place] [facility] aPTT Coag (PPP) [Time] 57.2 s High 23.0-32.4 [facility] Comment on above: Order Comment: Speci men Type: BLOOD SPECIMENOrdering Facility: [facility] Address: [address] [place] [address] Performed By: #### 1 4979-9 ####[facility]ATORYCLIA [id number] [address] [place] Bacteria CSF Culton 07-28-19 Bacteria identified Cx Nom (CSF) CULTURE, CSF: No growth 14 days GRAM STAIN: No organisms seen Rare Polymorphonuclear leukocytes Rare Red Blood Cells Gram stain performed on cytospun specimen. Normal [facility] Comment on above: Performed By: #### 6 06-4 ####[facility]ORATORYCLIA [id number] [place] [address] [place] Bacteria Spec Resp Culton Bacteria identified Respiratory culture Nom (Unsp spec) CULTURE, RESPIRATORY: Rare Normal respiratory chris present GRAM STAIN: No organisms seen Rare Polymorphonuclear leukocytes Rare Epithelial cells Normal [facility] Comment on above: Performed By: #### 3 2355-0 ####[facility]ATORYCLIA [id number] [address] CASE MANAGEMon 07-27-2021 CASE MANAGEM Normal [facility] CBC W Auto Differential pane l (Bld)on 07-27-2021 Basophils (Bld) [#/Vol] 0.04 10*3/uL Normal <0.11 [facility] Comment on above: Order Comment: Speci men Type: BLOOD SPECIMENOrdering Facility: [facility] Address: [address] [place] [address] Performed By: #### 5 7021-8 ####[facility]ATORYCLIA [id number] [address] STATES [facility] Basophils/100 WBC (Bld) 0.4 % Normal [facility] Comment on above: Order Comment: Speci men Type: BLOOD SPECIMENOrdering Facility: [facility] Address: [address] [place] [address] Performed By: #### 5 7021-8 ####[facility]ORYCLIA [id number] [place] [facility] Differential cell count method Nom (Bld) Auto Normal [facility] Comment on above: Order Comment: Speci men Type: BLOOD SPECIMENOrdering Facility: [facility] Address: [facility] [place] [address] Performed By: #### 5 7021-8 ####[facility] LABORATORYCLIA [id number] [place] Eosinophils (Bld) [#/Vol] 0.50 10*3/uL High <0.46 [facility] Comment on above: Order Comment: Speci men Type: BLOOD SPECIMENOrdering Facility: [facility] Address: [facility] [place] [address] Performed By: #### 5 7021-8 ####[facility]ORATORYCLIA [id number] [address] Eosinophils/100 WBC (Bld) 5.2 % Normal [facility] Comment on above: Order Comment: Speci men Type: BLOOD SPECIMENOrdering Facility: [facility] Address: [address] [place] [address] Performed By: #### 5 7021-8 ####[facility]ORATORYCLIA [id number] [address] Erythrocyte distribution width (RBC) [Ratio] 16.8 % High 11.5-15.0 [facility] Comment on above: Order Comment: Speci men Type: BLOOD SPECIMENOrdering Facility: [facility] Address: [address] [place] [address] Performed By: #### 5 7021-8 ####[facility]ATORYCLIA [id number] [address] Hematocrit (Bld) [Volume fraction] 29.8 % Low 39.0-51.0 [facility] Comment on above: Order Comment: Speci men Type: BLOOD SPECIMENOrdering Facility: [facility] Address: [address] [place] [address] Performed By: #### 5 7021-8 ####[facility]ORATORYCLIA [id number] [address] [place] Hemoglobin (Bld) [Mass/Vol] 9.0 g/dL Low 13.0-17.0 [facility] Comment on above: Order Comment: Speci men Type: BLOOD SPECIMENOrdering Facility: [facility] Address: [address] [place] [address] Performed By: #### 5 7021-8 ####[facility]ATORYCLIA [id number] [address] IMMATURE GRAN % 0.6 % Normal [facility] Comment on above: Order Comment: Speci men Type: BLOOD SPECIMENOrdering Facility: [facility] Address: [address] [place] [address] Performed By: #### 5 7021-8 ####[facility]ORYCLIA [id number] [address] IMMATURE GRAN ABS 0.06 k/uL Normal <0.10 [facility] Comment on above: Order Comment: Speci men Type: BLOOD SPECIMENOrdering Facility: [facility] Address: [address] [place] [address] Performed By: #### 5 7021-8 ####[facility]ORYCLIA [id number] [address] Lymphocytes (Bld) [#/Vol] 1.73 10*3/uL Normal 1.00-4.00 [facility] Comment on above: Order Comment: Speci men Type: BLOOD SPECIMENOrdering Facility: [facility] Address: [address] [place] [address] Performed By: #### 5 7021-8 ####[facility]ATORYCLIA [id number] [address] Lymphocytes/100 WBC (Bld) 17.9 % Normal [facility] Comment on above: Order Comment: Speci men Type: BLOOD SPECIMENOrdering Facility: [facility] Address: [address] [place] [address] Performed By: #### 5 7021-8 ####[facility]ATORYCLIA [id number] [address] MCH (RBC) [Entitic mass] 28.1 pg Normal 26.0-34.0 [facility] Comment on above: Order Comment: Speci men Type: BLOOD SPECIMENOrdering Facility: [facility] Address: [address] [place] [address] Performed By: #### 5 7021-8 ####[facility]ATORYCLIA [id number] [address] MCHC (RBC) [Mass/Vol] 30.2 g/dL Low 30.5-36.0 [facility] Comment on above: Order Comment: Speci men Type: BLOOD SPECIMENOrdering Facility: [facility] Address: [address] [place] [address] Performed By: #### 5 7021-8 ####[facility]ATORYCLIA [id number] [address] MCV (RBC) [Entitic vol] 93.1 fL Normal 80.0-100.0 [facility] Comment on above: Order Comment: Speci men Type: BLOOD SPECIMENOrdering Facility: [facility] Address: [address] [place] [address] Performed By: #### 5 7021-8 ####[facility]ORYCLIA [id number] [address] [place] Monocytes (Bld) [#/Vol] 0.59 10*3/uL Normal <0.87 [facility] Comment on above: Order Comment: Speci men Type: BLOOD SPECIMENOrdering Facility: [facility] Address: [address] [place] [address] Performed By: #### 5 7021-8 ####[facility]ATORYCLIA [id number] [address] Monocytes/100 WBC (Bld) 6.1 % Normal [facility] Comment on above: Order Comment: Speci men Type: BLOOD SPECIMENOrdering Facility: [facility] Address: [address] [place] [address] Performed By: #### 5 7021-8 ####[facility]ATORYCLIA [id number] [address] [place] Neutrophils (Bld) [#/Vol] 6.75 10*3/uL Normal 1.45-7.50 [facility] Comment on above: Order Comment: Speci men Type: BLOOD SPECIMENOrdering Facility: [facility] Address: [address] [place] [address] Performed By: #### 5 7021-8 ####[facility]ATORYCLIA [id number] [address] Neutrophils/100 WBC (Bld) 69.8 % Normal [facility] Comment on above: Order Comment: Speci men Type: BLOOD SPECIMENOrdering Facility: [facility] Address: [address] [place] [address] Performed By: #### 5 7021-8 ####[facility]ATORYCLIA [id number] [address] [place] Nucleated RBC (Bld) [#/Vol] 10*3/uL Normal <0.01 [facility] Comment on above: Order Comment: Speci men Type: BLOOD SPECIMENOrdering Facility: [facility] Address: [address] [place] [address] Performed By: #### 5 7021-8 ####[facility]ATORYCLIA [id number] [address] Nucleated RBC/100 WBC (Bld) [Ratio] 0.0 /100 WBC Normal [facility] Comment on above: Order Comment: Speci men Type: BLOOD SPECIMENOrdering Facility: [facility] Address: [address] [place] [address] Performed By: #### 5 7021-8 ####[facility]ATORYCLIA [id number] [address] [place] Platelet mean volume (Bld) [Entitic vol] 11.3 fL Normal 9.0-12.7 [facility] Comment on above: Order Comment: Speci men Type: BLOOD SPECIMENOrdering Facility: [facility] Address: [address] Performed By: #### 5 7021-8 ####[facility]ATORYCLIA [id number] [address] [place] Platelets (Bld) [#/Vol] 227 10*3/uL Normal 150-400 [facility] Comment on above: Order Comment: Speci men Type: BLOOD SPECIMENOrdering Facility: [facility] Address: [address] [place], [place] [address] Performed By: #### 5 7021-8 ####[facility]ATORYCLIA [id number] [address] [place] RBC (Bld) [#/Vol] 3.20 10*6/uL Low 4.20-6.00 [facility] Comment on above: Order Comment: Speci men Type: BLOOD SPECIMENOrdering Facility: [facility] Address: [address] [place] [address] Performed By: #### 5 7021-8 ####[facility]ATORYCLIA [id number] [address] OF [facility] WBC (Bld) [#/Vol] 9.67 10*3/uL Normal 3.70-11.00 [facility] Comment on above: Order Comment: Speci men Type: BLOOD SPECIMENOrdering Facility: [facility] Address: [address] [place] [address] Performed By: #### 5 7021-8 ####[facility]ATORYCLIA [id number] [address] CONSULT PROGon 07-27-2021 CONSULT PROG Normal [facility] CSF MANUAL DIFFon 07-27-2021 DIF TTL, CSF 100 cells counted Normal [facility] Comment on above: Order Comment: Speci men Type: CEREBROSPINAL FLUIDOrdering Facility: [facility] Address: [address] [place] [address] Performed By: #### L [id number], 33649-3, [id number] ####[facility]ATORYCLIA [id number] [address] [place] LYMPH%, CSF 75 % Normal 50-90 [facility] Comment on above: Order Comment: Speci men Type: CEREBROSPINAL FLUIDOrdering Facility: [facility] Address: [address] [place] [address] Performed By: #### L [id number], 19402-2, [id number] ####[facility]ORATORYCLIA [id number] [place] [address] [place] MONO%, CSF 22 % Normal 10-50 [facility] Comment on above: Order Comment: Speci men Type: CEREBROSPINAL FLUIDOrdering Facility: [facility] Address: [address] [place] [address] Performed By: #### L [id number], 46407-4, [id number] ####[facility]ATORYCLIA [id number] [address] [place] NEUT%, CSF 2 % Normal 0-3 [facility] Comment on above: Order Comment: Speci men Type: CEREBROSPINAL FLUIDOrdering Facility: [facility] Address: [address] [place] [address] Performed By: #### L [id number], 95998-1, [id number] ####[facility]ATORYCLIA [id number] [address] OTHER CL%, CSF 1 % Normal [facility] Comment on above: Order Comment: Speci men Type: CEREBROSPINAL FLUIDOrdering Facility: [facility] Address: [address] [place] [address] Result Comment: Path ologist review of microscopy results to follow Performed By: #### L [id number], 05164-3, [id number] ####[facility]ORATORYCLIA [id number] [address] OF [facility] CSF PATHOLOGIST INTERP (LAB REFLEX ORDER-NO BILL)on 07-27-2021 CSF STAFF REVIEW Negative [facility] Comment on above: Order Comment: Speci men Type: CEREBROSPINAL FLUIDOrdering Facility: [facility] Address: [address] [place] [address] Performed By: #### L [id number], 17759-8, [id number] ####[facility]ORYCLIA [id number] [address] Pathologist name Reviewed by Amador Stevens MD [facility] Comment on above: Order Comment: Speci men Type: CEREBROSPINAL FLUIDOrdering Facility: [facility] Address: [address] [place] [address] Performed By: #### L [id number], 58511-4, [id number] ####[facility]ORATORYCLIA [id number] [address] Cell count panel (CSF)on Clarity (CSF) Clear Normal Clear [facility] Comment on above: Order Comment: Speci men Type: CEREBROSPINAL FLUIDOrdering Facility: [facility] Address: [address] [place] [address] Performed By: #### L [id number], 21988-8, [id number] ####[facility] LABORATORYCLIA [id number] [address] Clarity (Unsp spec) Not Indicated Normal Clear [facility] Comment on above: Order Comment: Speci men Type: CEREBROSPINAL FLUIDOrdering Facility: [facility] Address: [address] [place] [address] Performed By: #### L HG1004, 60973-0, [id number] ####[facility]ATORYCLIA [id number] [address] Color (CSF) Colorless Normal Colorless [facility] Comment on above: Order Comment: Speci men Type: CEREBROSPINAL FLUIDOrdering Facility: [facility] Address: [address] [place] [address] Performed By: #### L [id number], 17718-8, HNY3287 ####[facility]ORYCLIA [id number] [address] Color (Spun CSF) Not Indicated Normal Colorless [facility] Comment on above: Order Comment: Speci men Type: CEREBROSPINAL FLUIDOrdering Facility: [facility] Address: [address] [place] [address] Performed By: #### L CH1313, 45768-5, [id number] ####[facility]ORATORYCLIA [id number] [address] CSF [employer] Normal [facility] Comment on above: Order Comment: Speci men Type: CEREBROSPINAL FLUIDOrdering Facility: [facility] Address: [address] [place] [address] Performed By: #### L [id number], 91920-9, [id number] ####[facility] LABORATORYCLIA [id number] [address] RBC Manual cnt (CSF) [#/Vol] 39 cells/uL High 0-5 [facility] Comment on above: Order Comment: Johni men Type: CEREBROSPINAL FLUIDOrdering Facility: [facility] Address: [address] [place] [address] Performed By: #### L HE1675, 48242-5, FMP0892 ####[facility] LABORATORYCLIA [id number] [address] WBC Manual cnt (CSF) [#/Vol] 14 cells/uL High 0-5 [facility] Comment on above: Order Comment: Shira francia Type: CEREBROSPINAL FLUIDOrdering Facility: [facility] Address: [address] [place] [address] Performed By: #### L IF8673, 75481-0, [id number] ####[facility]ORATORYCLIA [id number] [address] Glucose CSF-mCncon 2 Glucose (CSF) [Mass/Vol] 64 mg/dL Normal 40-70 [facility] Comment on above: Order Comment: Shira francia Type: CEREBROSPINAL FLUIDOrdering Facility: [facility] Address: [address] [place] [address] Result Comment: Lumb ar CSF glucose values of healthy patients are approximately 60% of the plasma values and must always be compared with a concurrently measured plasma value for adequate clinical interpretation.References: 1. Glucose HK (GLUC3) [package insert V 12.0 French]. [employer], [place], [place]. September 2015. 2. Michelle Moore, Loki H. (2015). Chapter 7: Glucose and Lactate. FGarfield Alcocer al.(eds.), Cerebrospinal Fluid in Clinical Neurology. [place]: [employer]. Performed By: #### 2 342-4, 2880-3 ####[facility]ORATORYCLIA [id number] [place] [address] [facility] NUTRITIONon 07-27-2021 NUTRITION Normal [facility] Prot CSF-mCncon 07-27-2021 Protein (CSF) [Mass/Vol] 58 mg/dL High 15-45 [facility] Comment on above: Order Comment: Speci men Type: CEREBROSPINAL FLUIDOrdering Facility: [facility] Address: [address] [place] [address] Performed By: #### 2 342-4, 2880-3 ####[facility]ORATORYCLIA [id number] [address] aPTT PPPon 07-27-2021 aPTT Coag (PPP) [Time] 68.4 s High 23.0-32.4 [facility] Comment on above: Order Comment: Speci men Type: BLOOD SPECIMENOrdering Facility: [facility] Address: [address] [place] [address] Performed By: #### 1 4979-9 ####[facility]ATORYCLIA [id number] [address] aPTT Coag (PPP) [Time] 51.3 s High 23.0-32.4 [facility] Comment on above: Order Comment: Speci men Type: BLOOD SPECIMENOrdering Facility: [facility] Address: [address] [place] [address] Performed By: #### 1 4979-9 ####[facility]ORATORYCLIA [id number] [address] [place] ALLIED HEALTHon 07-26-2021 ALLIED HEALTH HNO ID: [id number] Author: Stephanie Maldonado, plc technician Service: Radiology Author Type: [employer] Type: Allied Health Filed: 07/26/2021 4:10 PM Note Text: Spoke with nurse. Pt getting new EVD today. Try tomorrow. Normal [facility] Bacteria CSF Culton 07-27-19 Bacteria identified Cx Nom (CSF) Abnormal [facility] Comment on above: Performed By: #### 6 06-4 ####[facility]ORATORYCLIA [id number] [place] [address] [place] Basic metabolic 2000 panelon 07-26-2021 Anion gap [Moles/Vol] 6 mmol/L Low 9-18 [facility] Comment on above: Order Comment: Speci men Type: BLOOD SPECIMENOrdering Facility: [facility] Address: [address] [place] [address] Performed By: #### 2 4321-2 ####[facility]ORATORYCLIA [id number] [place] [address] [place] Calcium [Mass/Vol] 9.2 mg/dL Normal 8.5-10.2 [facility] Comment on above: Order Comment: Speci men Type: BLOOD SPECIMENOrdering Facility: [facility] Address: [address] [place] [address] Performed By: #### 2 4321-2 ####[facility]ATORYCLIA [id number] [place] [address] [place] Chloride [Moles/Vol] 99 mmol/L Normal 97-105 [facility] Comment on above: Order Comment: Speci men Type: BLOOD SPECIMENOrdering Facility: [facility] Address: [address] [place] [address] Performed By: #### 2 4321-2 ####[facility]ATORYCLIA [id number] [place] [address] [place] CO2 [Moles/Vol] 32 mmol/L High 22-30 [facility] Comment on above: Order Comment: Speci men Type: BLOOD SPECIMENOrdering Facility: [facility] Address: [address] [place] [address] Performed By: #### 2 4321-2 ####[facility]ORATORYCLIA [id number] [place] [address] [place] Creatinine [Mass/Vol] 0.74 mg/dL Normal 0.73-1.22 [facility] Comment on above: Order Comment: Shira feldman Type: BLOOD SPECIMENOrdering Facility: [facility] Address: [address] [address] Performed By: #### 2 4321-2 ####[facility]ORATORYCLIA [id number] [address] [place] ESTIMATED GLOMERULAR FILTRATION RATE 98 mL/min/1.73m??? Normal >=60 [facility] Comment on above: Order Comment: Shira feldman Type: BLOOD SPECIMENOrdering Facility: [facility] Address: [address] [place] [address] Result Comment: Luzmaria mated Glomerular Filtration Rate [...] actual GFR. Performed By: #### 2 4321-2 ####[facility]ORATORYCLIA [id number] [place] [address] [place] Glucose [Mass/Vol] 126 mg/dL High 74-99 [facility] Comment on above: Order Comment: Shira feldman Type: BLOOD SPECIMENOrdering Facility: [facility] Address: [address] [place] [address] Result Comment: The [place] Diabetes Association (ADA) provides guidance for cutoff [...] Standards of Medical Care in Diabetes 2016, [place] [employer]. Diabetes Care. 2016.39(Suppl 1). Performed By: #### 2 4321-2 ####[facility]ORATORYCLIA [id number] [place] [address] [place] Potassium [Moles/Vol] 4.2 mmol/L Normal 3.7-5.1 [facility] Comment on above: Order Comment: Speci men Type: BLOOD SPECIMENOrdering Facility: [facility] Address: [address] [place] [address] Performed By: #### 2 4321-2 ####[facility]ORATORYCLIA [id number] [place] [address] [place] Sodium [Moles/Vol] 137 mmol/L Normal 136-144 [facility] Comment on above: Order Comment: Speci men Type: BLOOD SPECIMENOrdering Facility: [facility] Address: [address] [place] [address] Performed By: #### 2 4321-2 ####[facility]ORATORYCLIA [id number] [address] STATES [facility] Urea nitrogen [Mass/Vol] 36 mg/dL High 9-24 [facility] Comment on above: Order Comment: Speci men Type: BLOOD SPECIMENOrdering Facility: [facility] Address: [address] [place] [address] Performed By: #### 2 4321-2 ####[facility]ORATORYCLIA [id number] [address] [place] CBC W Auto Differential pane l (Bld)on 07-26-2021 Basophils (Bld) [#/Vol] 0.04 10*3/uL Normal <0.11 [facility] Comment on above: Order Comment: Speci men Type: BLOOD SPECIMENOrdering Facility: [facility] Address: [address] [place] [address] Performed By: #### 5 7021-8 ####[facility]ORATORYCLIA [id number] [address] [place] Basophils/100 WBC (Bld) 0.4 % Normal [facility] Comment on above: Order Comment: Speci men Type: BLOOD SPECIMENOrdering Facility: [facility] Address: [address] [place] [address] Performed By: #### 5 7021-8 ####[facility]ORATORYCLIA [id number] [address] [place] Differential cell count method Nom (Bld) Auto Normal [facility] Comment on above: Order Comment: Speci men Type: BLOOD SPECIMENOrdering Facility: [facility] Address: [address] [place] [address] Performed By: #### 5 7021-8 ####[facility]ORATORYCLIA [id number] [address] [place] Eosinophils (Bld) [#/Vol] 0.63 10*3/uL High <0.46 [facility] Comment on above: Order Comment: Speci men Type: BLOOD SPECIMENOrdering Facility: [facility] Address: [address] [place] [address] Performed By: #### 5 7021-8 ####[facility]ORATORYCLIA [id number] [address] Eosinophils/100 WBC (Bld) 5.8 % Normal [facility] Comment on above: Order Comment: Speci men Type: BLOOD SPECIMENOrdering Facility: [facility] Address: [address] [place] [address] Performed By: #### 5 7021-8 ####[facility]ORATORYCLIA [id number] [address] [place] Erythrocyte distribution width (RBC) [Ratio] 16.8 % High 11.5-15.0 [facility] Comment on above: Order Comment: Speci men Type: BLOOD SPECIMENOrdering Facility: [facility] Address: [address] [place] [address] Performed By: #### 5 7021-8 ####[facility]ORATORYCLIA [id number] [address] [place] Hematocrit (Bld) [Volume fraction] 31.2 % Low 39.0-51.0 [facility] Comment on above: Order Comment: Speci men Type: BLOOD SPECIMENOrdering Facility: [facility] Address: [address] [place] [address] Performed By: #### 5 7021-8 ####[facility]ORATORYCLIA [id number] [address] STATES [facility] Hemoglobin (Bld) [Mass/Vol] 9.1 g/dL Low 13.0-17.0 [facility] Comment on above: Order Comment: Speci men Type: BLOOD SPECIMENOrdering Facility: [facility] Address: [address] [place] [address] Performed By: #### 5 7021-8 ####[facility]ORATORYCLIA [id number] [address] [facility] IMMATURE GRAN % 0.6 % Normal [facility] Comment on above: Order Comment: Speci men Type: BLOOD SPECIMENOrdering Facility: [facility] Address: [address] [place] [address] Performed By: #### 5 7021-8 ####[facility]ORATORYCLIA [id number] [address] IMMATURE GRAN ABS 0.07 k/uL Normal <0.10 [facility] Comment on above: Order Comment: Speci men Type: BLOOD SPECIMENOrdering Facility: [facility] Address: [address] [place] [address] Performed By: #### 5 7021-8 ####[facility]ORATORYCLIA [id number] [address] [place] Lymphocytes (Bld) [#/Vol] 2.16 10*3/uL Normal 1.00-4.00 [facility] Comment on above: Order Comment: Speci men Type: BLOOD SPECIMENOrdering Facility: [facility] Address: [address] [place] [address] Performed By: #### 5 7021-8 ####[facility]ORATORYCLIA [id number] [address] Lymphocytes/100 WBC (Bld) 20.0 % Normal [facility] Comment on above: Order Comment: Speci men Type: BLOOD SPECIMENOrdering Facility: [facility] Address: [address] [place] [address] Performed By: #### 5 7021-8 ####[facility]ORATORYCLIA [id number] [address] MCH (RBC) [Entitic mass] 27.7 pg Normal 26.0-34.0 [facility] Comment on above: Order Comment: Speci men Type: BLOOD SPECIMENOrdering Facility: [facility] Address: [address] [place] [address] Performed By: #### 5 7021-8 ####[facility]ATORYCLIA [id number] [address] MCHC (RBC) [Mass/Vol] 29.2 g/dL Low 30.5-36.0 [facility] Comment on above: Order Comment: Speci men Type: BLOOD SPECIMENOrdering Facility: [facility] Address: [address] [place] [address] Performed By: #### 5 7021-8 ####[facility]ATORYCLIA [id number] [address] [address] MCV (RBC) [Entitic vol] 95.1 fL Normal 80.0-100.0 [facility] Comment on above: Order Comment: Speci men Type: BLOOD SPECIMENOrdering Facility: [facility] Address: [address] [place] [address] Performed By: #### 5 7021-8 ####[facility] LABORATORYCLIA [id number] [address] Monocytes (Bld) [#/Vol] 0.63 10*3/uL Normal <0.87 [facility] Comment on above: Order Comment: Speci men Type: BLOOD SPECIMENOrdering Facility: [facility] Address: [address] [address] Performed By: #### 5 7021-8 ####[facility]ATORYCLIA [id number] [address] [place] Monocytes/100 WBC (Bld) 5.8 % Normal [facility] Comment on above: Order Comment: Speci men Type: BLOOD SPECIMENOrdering Facility: [facility] Address: [address] [place] [address] Performed By: #### 5 7021-8 ####[facility] LABORATORYCLIA [id number] [place] [address] [place] Neutrophils (Bld) [#/Vol] 7.25 10*3/uL Normal 1.45-7.50 [facility] Comment on above: Order Comment: Speci men Type: BLOOD SPECIMENOrdering Facility: [facility] Address: [address] [place] [address] Performed By: #### 5 7021-8 ####[facility]ORYCLIA [id number] [address] [place] Neutrophils/100 WBC (Bld) 67.4 % Normal [facility] Comment on above: Order Comment: Speci men Type: BLOOD SPECIMENOrdering Facility: [facility] Address: [address] [place] [address] Performed By: #### 5 7021-8 ####[facility]ATORYCLIA [id number] [place] [address] [place] Nucleated RBC (Bld) [#/Vol] 10*3/uL Normal <0.01 [facility] Comment on above: Order Comment: Speci men Type: BLOOD SPECIMENOrdering Facility: [facility] Address: [address] [place] [address] Performed By: #### 5 7021-8 ####[facility]ATORYCLIA [id number] [place] [address] [place] Nucleated RBC/100 WBC (Bld) [Ratio] 0.0 /100 WBC Normal [facility] Comment on above: Order Comment: Speci men Type: BLOOD SPECIMENOrdering Facility: [facility] Address: [address] [place], [place] [address] Performed By: #### 5 7021-8 ####[facility]ATORYCLIA [id number] [address] [place] Platelet mean volume (Bld) [Entitic vol] 11.2 fL Normal 9.0-12.7 [facility] Comment on above: Order Comment: Speci men Type: BLOOD SPECIMENOrdering Facility: [facility] Address: [address] [place], [place] [address] Performed By: #### 5 7021-8 ####[facility]ATORYCLIA [id number] [address] [place] Platelets (Bld) [#/Vol] 245 10*3/uL Normal 150-400 [facility] Comment on above: Order Comment: Speci men Type: BLOOD SPECIMENOrdering Facility: [facility] Address: [address] [place] [address] Performed By: #### 5 7021-8 ####[facility]ATORYCLIA [id number] [place] [address] [place] RBC (Bld) [#/Vol] 3.28 10*6/uL Low 4.20-6.00 [facility] Comment on above: Order Comment: Speci men Type: BLOOD SPECIMENOrdering Facility: [facility] Address: [address] [place], [place] [address] Performed By: #### 5 7021-8 ####[facility]ORATORYCLIA [id number] [place] [address] [place] WBC (Bld) [#/Vol] 10.78 10*3/uL Normal 3.70-11.00 [facility] Comment on above: Order Comment: Speci men Type: BLOOD SPECIMENOrdering Facility: [facility] Address: [address] [place], [place] [address] Performed By: #### 5 7021-8 ####[facility]ORATORYCLIA [id number] [place] [address] [place] CSF MANUAL DIFFon 07-26-2021 DIF TTL, CSF 100 cells counted Normal [facility] Comment on above: Order Comment: Speci men Type: CEREBROSPINAL FLUIDOrdering Facility: [facility] Address: [address] [place] [address] Performed By: #### 3 4563-7, [id number], [id number] ####[facility]ATORYCLIA [id number] [place] [address] [place] LYMPH%, CSF 26 % Low 50-90 [facility] Comment on above: Order Comment: Speci men Type: CEREBROSPINAL FLUIDOrdering Facility: [facility] Address: [address] [place] [address] Performed By: #### 3 4563-7, [id number], [id number] ####[facility]ATORYCLIA [id number] [address] [place] MACRO%, CSF 10 % High <1 [facility] Comment on above: Order Comment: Speci men Type: CEREBROSPINAL FLUIDOrdering Facility: [facility] Address: [address] [place] [address] Performed By: #### 3 4563-7, [id number], [id number] ####[facility]ATORYCLIA [id number] [place] [address] [place] MONO%, CSF 20 % Normal 10-50 [facility] Comment on above: Order Comment: Speci men Type: CEREBROSPINAL FLUIDOrdering Facility: [facility] Address: [address] [place] [address] Performed By: #### 3 4563-7, [id number], [id number] ####[facility]ATORYCLIA [id number] [address] [place] NEUT%, CSF 40 % High 0-3 [facility] Comment on above: Order Comment: Speci men Type: CEREBROSPINAL FLUIDOrdering Facility: [facility] Address: [address] [place] [address] Performed By: #### 3 4563-7, [id number], [id number] ####[facility]ATORYCLIA [id number] [address] STATES OF [facility] OTHER CL%, CSF 2 % Normal [facility] Comment on above: Order Comment: Speci men Type: CEREBROSPINAL FLUIDOrdering Facility: [facility] Address: [address] [place] [address] Result Comment: Path review to follow. Performed By: #### 3 4563-7, [id number], [id number] ####[facility]ATORYCLIA [id number] [address] [place] REAC LYMPH %, CSF 2 % Normal [facility] Comment on above: Order Comment: Speci men Type: CEREBROSPINAL FLUIDOrdering Facility: [facility] Address: [address] [place] [address] Performed By: #### 3 4563-7, [id number], [id number] ####[facility]ORATORYCLIA [id number] [address] CSF PATHOLOGIST INTERP (LAB REFLEX ORDER-NO BILL)on 07-26-2021 CSF STAFF REVIEW Negative for maligna nt cells. Rare bacteria present, cocci in pairs and chains. Correlation with CSF cultures is recommended. [facility] Comment on above: Order Comment: Speci men Type: CEREBROSPINAL FLUIDOrdering Facility: [facility] Address: [address] [place] [address] Performed By: #### 3 4563-7, [id number], [id number] ####[facility]ATORYCLIA [id number] [address] Pathologist name Reviewed by Amador Stevens MD [facility] Comment on above: Order Comment: Speci men Type: CEREBROSPINAL FLUIDOrdering Facility: [facility] Address: [address] [place] [address] Performed By: #### 3 4563-7, [id number], [id number] ####[facility]ATORYCLIA [id number] [address] Cell count panel (CSF)on Clarity (CSF) Slightly Cloudy Abnormal Clear [facility] Comment on above: Order Comment: Speci men Type: CEREBROSPINAL FLUIDOrdering Facility: [facility] Address: [address] [address] Performed By: #### 3 4563-7, [id number], [id number] ####[facility] LABORATORYCLIA [id number] [address] Clarity (Unsp spec) Clear Normal Clear [facility] Comment on above: Order Comment: Speci men Type: CEREBROSPINAL FLUIDOrdering Facility: [facility] Address: [facility] [address] Performed By: #### 3 4563-7, [id number], [id number] ####[facility]ORYCLIA [id number] [address] Color (CSF) Colorless Normal Colorless [facility] Comment on above: Order Comment: Speci men Type: CEREBROSPINAL FLUIDOrdering Facility: [facility] Address: [address] [place] [address] Performed By: #### 3 4563-7, [id number], [id number] ####[facility]ORYCLIA [id number] [address] Color (Spun CSF) Not Indicated Normal Colorless [facility] Comment on above: Order Comment: Speci men Type: CEREBROSPINAL FLUIDOrdering Facility: [facility] Address: [address] [address] Performed By: #### 3 4563-7, [id number], [id number] ####[facility]ORYCLIA [id number] [address] CSF TUBE [employer] Normal [facility] Comment on above: Order Comment: Speci men Type: CEREBROSPINAL FLUIDOrdering Facility: [facility] Address: [address] [place] [address] Performed By: #### 3 4563-7, [id number], [id number] ####[facility]ATORYCLIA [id number] [address] RBC Manual cnt (CSF) [#/Vol] 1 cells/uL Normal 0-5 [facility] Comment on above: Order Comment: Speci men Type: CEREBROSPINAL FLUIDOrdering Facility: [facility] Address: [address] [place] [address] Performed By: #### 3 4563-7, [id number], [id number] ####[facility]ATORYCLIA [id number] [address] WBC Manual cnt (CSF) [#/Vol] 50 cells/uL High 0-5 [facility] Comment on above: Order Comment: Speci men Type: CEREBROSPINAL FLUIDOrdering Facility: [facility] Address: [address] [place] [address] Performed By: #### 3 4563-7, [id number], [id number] ####[facility]ORATORYCLIA [id number] [address] OF [facility] Glucose CSF-ncon 2 Glucose (CSF) [Mass/Vol] 64 mg/dL Normal 40-70 [facility] Comment on above: Order Comment: Speci men Type: CEREBROSPINAL FLUIDOrdering Facility: [facility] Address: [address] [place] [address] Result Comment: Lumb ar CSF glucose values of healthy patients are approximately 60% of the plasma values and must always be compared with a concurrently measured plasma value for adequate clinical interpretation.References: 1. Glucose HK (GLUC3) [package insert V 12.0 French]. [employer], [place], [place]. September 2015. 2. Michelle Moore, Loki, H. (2015). Chapter 7: Glucose and Lactate. Marianela Rothman.(eds.), Cerebrospinal Fluid in Clinical Neurology. [place]: [employer]. Performed By: #### 2 880-3, 2342-4 ####[facility]ORATORYCLIA [id number] [address] Magnesium SerPl-ncon 07-26 Magnesium [Mass/Vol] 2.3 mg/dL Normal 1.7-2.3 [facility] Comment on above: Order Comment: Speci men Type: BLOOD SPECIMENOrdering Facility: [facility] Address: [address] [place] [address] Performed By: #### 1 9123-9, 2777-1, 3016-3 ####[facility]ATORYCLIA [id number] [address] NURSING PROGon 07-26-2021 NURSING PROG Normal [facility] Phosphate SerPl-mCncon 07-26 Phosphate [Mass/Vol] 2.6 mg/dL Low 2.7-4.8 [facility] Comment on above: Order Comment: Speci men Type: BLOOD SPECIMENOrdering Facility: [facility] Address: [address] [place] [address] Performed By: #### 1 9123-9, 2777-1, 3016-3 ####[facility]ORYCLIA [id number] [address] Prot CSF-mCncon 07-26-2021 Protein (CSF) [Mass/Vol] 64 mg/dL High 15-45 [facility] Comment on above: Order Comment: Speci men Type: CEREBROSPINAL FLUIDOrdering Facility: [facility] Address: [address] [place] [address] Performed By: #### 2 880-3, 2342-4 ####[facility]ATORYCLIA [id number] [address] THERAPY NTon 07-26-2021 THERAPY NT Normal [facility] TSH SerPl-aCncon 07-26-2021 TSH Qn 1.470 m[IU]/L Normal 0.270-4.200 [facility] Comment on above: Order Comment: Speci men Type: BLOOD SPECIMENOrdering Facility: [facility] Address: [address] [place] [address] Performed By: #### 1 9123-9, 2777-1, 3016-3 ####[facility]ATORYCLIA [id number] [address] VITAMIN B12 BLOODon 07-27-19 22 Cobalamin (Vitamin B12) [Mass/Vol] 934 pg/mL Normal 232-1,245 [facility] Comment on above: Order Comment: Speci men Type: BLOOD SPECIMENOrdering Facility: [facility] Address: [address] [place] [address] Performed By: #### B 12 ####[facility]ATORYCLIA [id number] [address] aPTT PPPon 07-26-2021 aPTT Coag (PPP) [Time] 53.6 s High 23.0-32.4 [facility] Comment on above: Order Comment: Speci men Type: BLOOD SPECIMENOrdering Facility: [facility] Address: [address] [place] [address] Performed By: #### 1 4979-9 ####[facility]ORYCLIA [id number] [address] aPTT Coag (PPP) [Time] 44.9 s High 23.0-32.4 [facility] Comment on above: Order Comment: Speci men Type: BLOOD SPECIMENOrdering Facility: [facility] Address: [address] [place] [address] Performed By: #### 1 4979-9 ####[facility]ATORYCLIA [id number] [address] OF [facility] ALLIED HEALTHon 07-25-2021 ALLIED HEALTH HNO ID: [id number] Author: RT Rajwinder(R) Service: Radiology Author Type: Technologist Type: Allied Health Filed: 07/25/2021 1:37 PM Note Text: Called floor for MRI screening form [id number] Normal [facility] Bacteria Bld Culton 03-21-20 22 Bacteria identified Cx Nom (Bld) CULTURE, BLOOD: No growth 5 days Normal [facility] Comment on above: Performed By: #### 6 00-7 ####[facility]ATORYCLIA [id number] [address] Bacteria identified Cx Nom (Bld) CULTURE, BLOOD: No growth 5 days Normal [facility] Comment on above: Performed By: #### 6 00-7 ####[facility]ATORYCLIA [id number] [address] [facility] CASE MANAGEMon 07-25-2021 CASE MANAGEM Normal [facility] CBC W Auto Differential pane l (Bld)on 07-25-2021 Basophils (Bld) [#/Vol] 0.06 10*3/uL Normal <0.11 [facility] Comment on above: Order Comment: Speci men Type: BLOOD SPECIMENOrdering Facility: [facility] Address: [address] [place] [address] Performed By: #### 5 7021-8 ####[facility]ORATORYCLIA [id number] [address] STATES [facility] Basophils/100 WBC (Bld) 0.6 % Normal [facility] Comment on above: Order Comment: Speci men Type: BLOOD SPECIMENOrdering Facility: [facility] Address: [address] [place] [address] Performed By: #### 5 7021-8 ####[facility]ATORYCLIA [id number] [address] Differential cell count method Nom (Bld) Auto Normal [facility] Comment on above: Order Comment: Speci men Type: BLOOD SPECIMENOrdering Facility: [facility] Address: [address] [place] [address] Performed By: #### 5 7021-8 ####[facility]ORYCLIA [id number] [address] [place] Eosinophils (Bld) [#/Vol] 0.26 10*3/uL Normal <0.46 [facility] Comment on above: Order Comment: Speci men Type: BLOOD SPECIMENOrdering Facility: [facility] Address: [address] [place] [address] Performed By: #### 5 7021-8 ####[facility]ORYCLIA [id number] [address] Eosinophils/100 WBC (Bld) 2.5 % Normal [facility] Comment on above: Order Comment: Speci men Type: BLOOD SPECIMENOrdering Facility: [facility] Address: [address] [place] [address] Performed By: #### 5 7021-8 ####[facility]ATORYCLIA [id number] [address] [place] Erythrocyte distribution width (RBC) [Ratio] 16.9 % High 11.5-15.0 [facility] Comment on above: Order Comment: Speci men Type: BLOOD SPECIMENOrdering Facility: [facility] Address: [address] [place] [address] Performed By: #### 5 7021-8 ####[facility]ATORYCLIA [id number] [address] [place] Hematocrit (Bld) [Volume fraction] 29.6 % Low 39.0-51.0 [facility] Comment on above: Order Comment: Speci men Type: BLOOD SPECIMENOrdering Facility: [facility] Address: [address] [place] [address] Performed By: #### 5 7021-8 ####[facility]ATORYCLIA [id number] [address] [place] Hemoglobin (Bld) [Mass/Vol] 8.8 g/dL Low 13.0-17.0 [facility] Comment on above: Order Comment: Speci men Type: BLOOD SPECIMENOrdering Facility: [facility] Address: [address] [place] [address] Performed By: #### 5 7021-8 ####[facility]ATORYCLIA [id number] [address] IMMATURE GRAN % 0.6 % Normal [facility] Comment on above: Order Comment: Speci men Type: BLOOD SPECIMENOrdering Facility: [facility] Address: [address] [place] [address] Performed By: #### 5 7021-8 ####[facility]ORYCLIA [id number] [address] IMMATURE GRAN ABS 0.06 k/uL Normal <0.10 [facility] Comment on above: Order Comment: Speci men Type: BLOOD SPECIMENOrdering Facility: [facility] Address: [address] [place] [address] Performed By: #### 5 7021-8 ####[facility]ATORYCLIA [id number] [address] STATES [facility] Lymphocytes (Bld) [#/Vol] 2.15 10*3/uL Normal 1.00-4.00 [facility] Comment on above: Order Comment: Speci men Type: BLOOD SPECIMENOrdering Facility: [facility] Address: [address] [place] [address] Performed By: #### 5 7021-8 ####[facility]ATORYCLIA [id number] [address] Lymphocytes/100 WBC (Bld) 20.7 % Normal [facility] Comment on above: Order Comment: Speci men Type: BLOOD SPECIMENOrdering Facility: [facility] Address: [address] [place] [address] Performed By: #### 5 7021-8 ####[facility]ORYCLIA [id number] [address] [place] MCH (RBC) [Entitic mass] 28.2 pg Normal 26.0-34.0 [facility] Comment on above: Order Comment: Speci men Type: BLOOD SPECIMENOrdering Facility: [facility] Address: [address] [place] [address] Performed By: #### 5 7021-8 ####[facility]ORATORYCLIA [id number] [address] STATES [facility] MCHC (RBC) [Mass/Vol] 29.7 g/dL Low 30.5-36.0 [facility] Comment on above: Order Comment: Speci men Type: BLOOD SPECIMENOrdering Facility: [facility] Address: [address] [place] [address] Performed By: #### 5 7021-8 ####[facility]ATORYCLIA [id number] [address] MCV (RBC) [Entitic vol] 94.9 fL Normal 80.0-100.0 [facility] Comment on above: Order Comment: Speci men Type: BLOOD SPECIMENOrdering Facility: [facility] Address: [address] [place] [address] Performed By: #### 5 7021-8 ####[facility]ATORYCLIA [id number] [address] Monocytes (Bld) [#/Vol] 0.62 10*3/uL Normal <0.87 [facility] Comment on above: Order Comment: Speci men Type: BLOOD SPECIMENOrdering Facility: [facility] Address: [address] [place] [address] Performed By: #### 5 7021-8 ####[facility]ATORYCLIA [id number] [address] Monocytes/100 WBC (Bld) 6.0 % Normal [facility] Comment on above: Order Comment: Speci men Type: BLOOD SPECIMENOrdering Facility: [facility] Address: [address] [place] [address] Performed By: #### 5 7021-8 ####[facility]ATORYCLIA [id number] [address] [place] Neutrophils (Bld) [#/Vol] 7.25 10*3/uL Normal 1.45-7.50 [facility] Comment on above: Order Comment: Speci men Type: BLOOD SPECIMENOrdering Facility: [facility] Address: [address] [address] Performed By: #### 5 7021-8 ####[facility]ATORYCLIA [id number] [address] Neutrophils/100 WBC (Bld) 69.6 % Normal [facility] Comment on above: Order Comment: Speci men Type: BLOOD SPECIMENOrdering Facility: [facility] Address: [address] [place] [address] Performed By: #### 5 7021-8 ####[facility]ATORYCLIA [id number] [address] Nucleated RBC (Bld) [#/Vol] 10*3/uL Normal <0.01 [facility] Comment on above: Order Comment: Speci men Type: BLOOD SPECIMENOrdering Facility: [facility] Address: [address] [place] [address] Performed By: #### 5 7021-8 ####[facility]ORYCLIA [id number] [address] Nucleated RBC/100 WBC (Bld) [Ratio] 0.0 /100 WBC Normal [facility] Comment on above: Order Comment: Speci men Type: BLOOD SPECIMENOrdering Facility: [facility] Address: [address] [place] [address] Performed By: #### 5 7021-8 ####[facility]ORYCLIA [id number] [address] Platelet mean volume (Bld) [Entitic vol] 11.3 fL Normal 9.0-12.7 [facility] Comment on above: Order Comment: Speci men Type: BLOOD SPECIMENOrdering Facility: [facility] Address: [address] [place] [address] Performed By: #### 5 7021-8 ####[facility]ORYCLIA [id number] [address] Platelets (Bld) [#/Vol] 243 10*3/uL Normal 150-400 [facility] Comment on above: Order Comment: Johni francia Type: BLOOD SPECIMENOrdering Facility: [facility] Address: [address] [place] [address] Performed By: #### 5 7021-8 ####[facility]ORATORYCLIA [id number] [place] [address] [place] RBC (Bld) [#/Vol] 3.12 10*6/uL Low 4.20-6.00 [facility] Comment on above: Order Comment: Shira feldman Type: BLOOD SPECIMENOrdering Facility: [facility] Address: [address] [place] [address] Performed By: #### 5 7021-8 ####[facility]ATORYCLIA [id number] [address] [facility] WBC (Bld) [#/Vol] 10.40 10*3/uL Normal 3.70-11.00 [facility] Comment on above: Order Comment: Shira feldman Type: BLOOD SPECIMENOrdering Facility: [facility] Address: [address] [place] [address] Performed By: #### 5 7021-8 ####[facility]ATORYCLIA [id number] [address] [place] CONSULT PROGon 07-25-2021 CONSULT PROG Normal [facility] MYCOPLASMA PNEUM IGMon 07-25 M. PNEUMO IGM, QUAL Negative Normal Negative [facility] Comment on above: Order Comment: Shira feldman Type: BLOOD SPECIMENOrdering Facility: [facility] Address: [address] [place] [address] Result Comment: Myco plasma pneumoniae IgM antibody test is used as an aid in diagnosis of recent infection with M. pneumoniae. It may occasionally remain elevated for extended periods after an acute infection. Cannot exclude recent infection if the specimen collected 7-10 days after onset of signs and symptoms. Clinical correlation is required. Performed By: #### M YCOPM ####[facility] LABCLIA [id number] NILESH [place] [address] [place] NURSING PROGon 07-25-2021 NURSING PROG Normal [facility] THERAPY NTon 07-25-2021 THERAPY NT Normal [facility] THERAPY NT Normal [facility] aPTT PPPon 07-25-2021 aPTT Coag (PPP) [Time] 62.6 s High 23.0-32.4 [facility] Comment on above: Order Comment: Speci men Type: BLOOD SPECIMENOrdering Facility: [facility] Address: [address] [place] [address] Performed By: #### 1 4979-9 ####[facility]ORATORYCLIA [id number] [address] [place] Bacteria Ur Culton Bacteria identified Cx Nom (U) CULTURE, URINE: No growth (<100 CFU/ml) Normal [facility] Comment on above: Performed By: #### 6 30-4 ####[facility]ORATORYCLIA [id number] [place] [address] [place] Basic metabolic 2000 panelon 07-24-2021 Anion gap [Moles/Vol] 13 mmol/L Normal 9-18 [facility] Comment on above: Order Comment: Speci men Type: BLOOD SPECIMENOrdering Facility: [facility] Address: [address] [place] [address] Performed By: #### 1 9123-9, PROCCARLITOS, 2777-1, 96699-1 ####[facility]ATORYCLIA [id number] [place] [address] [place] Calcium [Mass/Vol] 9.5 mg/dL Normal 8.5-10.2 [facility] Comment on above: Order Comment: Speci men Type: BLOOD SPECIMENOrdering Facility: [facility] Address: [address] [place] [address] Performed By: #### 1 9123-9, PROCCARLITOS, 2777-1, 78051-6 ####[facility]ATORYCLIA [id number] [address] STATES OF [facility] Chloride [Moles/Vol] 102 mmol/L Normal 97-105 [facility] Comment on above: Order Comment: Speci men Type: BLOOD SPECIMENOrdering Facility: [facility] Address: [address] [place] [address] Performed By: #### 1 9123-9, PROCAL, 2777-1, 02233-5 ####[facility]ITALCLIA [id number] [address] OF [facility] CO2 [Moles/Vol] 28 mmol/L Normal 22-30 [facility] Comment on above: Order Comment: Speci men Type: BLOOD SPECIMENOrdering Facility: [facility] Address: [address] [place] [address] Performed By: #### 1 9123-9, PROCVT, 2777-1, 78259-6 ####[facility]ITALIA [id number] [address] Creatinine [Mass/Vol] 0.86 mg/dL Normal 0.73-1.22 [facility] Comment on above: Order Comment: Speci men Type: BLOOD SPECIMENOrdering Facility: [facility] Address: [address] [place] [address] Performed By: #### 1 9123-9, [facility], 2777-1, 00102-3 ####[facility] HOSPITALIA [id number] [address] ESTIMATED GLOMERULAR FILTRATION RATE 94 mL/min/1.73m??? Normal >=60 [facility] Comment on above: Order Comment: Speci men Type: BLOOD SPECIMENOrdering Facility: [facility] Address: [address] [place] [address] Result Comment: Luzmaria mated Glomerular Filtration Rate [...] Performed By: #### 1 9123-9, KATIE, 2776-05, 18199-3 ####[facility]ATORYCLIA [id number] [place] [address] [place] Glucose [Mass/Vol] 148 mg/dL High 74-99 [facility] Comment on above: Order Comment: Shira feldman Type: BLOOD SPECIMENOrdering Facility: [facility] Address: [address] [id number] Result Comment: The [place] Diabetes Association (ADA) provides guidance for cutoff [...] Standards of Medical Care in Diabetes 2016, [place] [employer]. Diabetes Care. 2016.39(Suppl 1). Performed By: #### 1 9123-9, KATIE, 2776-05, 84151-6 ####[facility]ATORYCLIA [id number] [place] [address] [place] Potassium [Moles/Vol] 4.0 mmol/L Normal 3.7-5.1 [facility] Comment on above: Order Comment: Shira feldman Type: BLOOD SPECIMENOrdering Facility: [facility] Address: [address] [phone] Performed By: #### 1 9123-9, KATIE, 2776-05, 96422-3 ####[facility]ATORYCLIA [id number] [place] [address] [place] Sodium [Moles/Vol] 143 mmol/L Normal 136-144 [facility] Comment on above: Order Comment: Speci men Type: BLOOD SPECIMENOrdering Facility: [facility] Address: [address] [place] [address] Performed By: #### 1 9123-9, KATIE, 2776-, 48551-5 ####[facility]ORATORYCLIA [id number] [address] STATES [facility] Urea nitrogen [Mass/Vol] 38 mg/dL High 9-24 [facility] Comment on above: Order Comment: Speci men Type: BLOOD SPECIMENOrdering Facility: [facility] Address: [address] [place] [address] Performed By: #### 1 9123-9, KATIE, 2776-05, 10671-0 ####[facility]ATORYCLIA [id number] [address] STATES [place] [facility] CBC W Auto Differential pane l (Bld)on 07-24-2021 Basophils (Bld) [#/Vol] 0.06 10*3/uL Normal <0.11 [facility] Comment on above: Order Comment: Speci men Type: BLOOD SPECIMENOrdering Facility: [facility] Address: [address] [place] [address] Performed By: #### 5 7021-8 ####[facility]ATORYCLIA [id number] [address] [place] Basophils/100 WBC (Bld) 0.6 % Normal [facility] Comment on above: Order Comment: Speci men Type: BLOOD SPECIMENOrdering Facility: [facility] Address: [address] [place] [address] Performed By: #### 5 7021-8 ####[facility]ORATORYCLIA [id number] [address] Differential cell count method Nom (Bld) Auto Normal [facility] Comment on above: Order Comment: Speci men Type: BLOOD SPECIMENOrdering Facility: [facility] Address: [address] [place] [address] Performed By: #### 5 7021-8 ####[facility]ORATORYCLIA [id number] [address] [place] Eosinophils (Bld) [#/Vol] 0.03 10*3/uL Normal <0.46 [facility] Comment on above: Order Comment: Speci men Type: BLOOD SPECIMENOrdering Facility: [facility] Address: [address] [place] [address] Performed By: #### 5 7021-8 ####[facility]ATORYCLIA [id number] [address] Eosinophils/100 WBC (Bld) 0.3 % Normal [facility] Comment on above: Order Comment: Speci men Type: BLOOD SPECIMENOrdering Facility: [facility] Address: [address] [place] [address] Performed By: #### 5 7021-8 ####[facility]ORATORYCLIA [id number] [address] Erythrocyte distribution width (RBC) [Ratio] 17.0 % High 11.5-15.0 [facility] Comment on above: Order Comment: Speci men Type: BLOOD SPECIMENOrdering Facility: [facility] Address: [address] [place] [address] Performed By: #### 5 7021-8 ####[facility]ORATORYCLIA [id number] [address] [place] Hematocrit (Bld) [Volume fraction] 30.5 % Low 39.0-51.0 [facility] Comment on above: Order Comment: Speci men Type: BLOOD SPECIMENOrdering Facility: [facility] Address: [address] [place] [address] Performed By: #### 5 7021-8 ####[facility]ATORYCLIA [id number] [address] [place] Hemoglobin (Bld) [Mass/Vol] 9.0 g/dL Low 13.0-17.0 [facility] Comment on above: Order Comment: Speci men Type: BLOOD SPECIMENOrdering Facility: [facility] Address: [address] [place] [address] Performed By: #### 5 7021-8 ####[facility]ORATORYCLIA [id number] [address] IMMATURE GRAN % 0.5 % Normal [facility] Comment on above: Order Comment: Speci men Type: BLOOD SPECIMENOrdering Facility: [facility] Address: [address] [place] [address] Performed By: #### 5 7021-8 ####[facility]ATORYCLIA [id number] [address] IMMATURE GRAN ABS 0.05 k/uL Normal <0.10 [facility] Comment on above: Order Comment: Speci men Type: BLOOD SPECIMENOrdering Facility: [facility] Address: [address] [place] [address] Performed By: #### 5 7021-8 ####[facility]ATORYCLIA [id number] [address] Lymphocytes (Bld) [#/Vol] 1.68 10*3/uL Normal 1.00-4.00 [facility] Comment on above: Order Comment: Speci men Type: BLOOD SPECIMENOrdering Facility: [facility] Address: [address] [place] [address] Performed By: #### 5 7021-8 ####[facility]ATORYCLIA [id number] [address] Lymphocytes/100 WBC (Bld) 16.2 % Normal [facility] Comment on above: Order Comment: Speci men Type: BLOOD SPECIMENOrdering Facility: [facility] Address: [address] [place] [address] Performed By: #### 5 7021-8 ####[facility]ATORYCLIA [id number] [address] [place] MCH (RBC) [Entitic mass] 27.4 pg Normal 26.0-34.0 [facility] Comment on above: Order Comment: Speci men Type: BLOOD SPECIMENOrdering Facility: [facility] Address: [address] [place] [address] Performed By: #### 5 7021-8 ####[facility]ATORYCLIA [id number] [address] [place] MCHC (RBC) [Mass/Vol] 29.5 g/dL Low 30.5-36.0 [facility] Comment on above: Order Comment: Speci men Type: BLOOD SPECIMENOrdering Facility: [facility] Address: [address] [place] [address] Performed By: #### 5 7021-8 ####[facility]ATORYCLIA [id number] [address] [place] MCV (RBC) [Entitic vol] 93.0 fL Normal 80.0-100.0 [facility] Comment on above: Order Comment: Speci men Type: BLOOD SPECIMENOrdering Facility: [facility] Address: [address] [place] [address] Performed By: #### 5 7021-8 ####[facility]ORATORYCLIA [id number] [address] [place] Monocytes (Bld) [#/Vol] 0.63 10*3/uL Normal <0.87 [facility] Comment on above: Order Comment: Speci men Type: BLOOD SPECIMENOrdering Facility: [facility] Address: [address] [place] [address] Performed By: #### 5 7021-8 ####[facility]ATORYCLIA [id number] [address] Monocytes/100 WBC (Bld) 6.1 % Normal [facility] Comment on above: Order Comment: Speci men Type: BLOOD SPECIMENOrdering Facility: [facility] Address: [address] [place] [address] Performed By: #### 5 7021-8 ####[facility]ORATORYCLIA [id number] [address] [place] Neutrophils (Bld) [#/Vol] 7.91 10*3/uL High 1.45-7.50 [facility] Comment on above: Order Comment: Speci men Type: BLOOD SPECIMENOrdering Facility: [facility] Address: [address] [address] Performed By: #### 5 7021-8 ####[facility]ATORYCLIA [id number] [address] [place] Neutrophils/100 WBC (Bld) 76.3 % Normal [facility] Comment on above: Order Comment: Speci men Type: BLOOD SPECIMENOrdering Facility: [facility] Address: [facility] [address] Performed By: #### 5 7021-8 ####[facility]ORATORYCLIA [id number] [address] [place] Nucleated RBC (Bld) [#/Vol] 10*3/uL Normal <0.01 [facility] Comment on above: Order Comment: Speci men Type: BLOOD SPECIMENOrdering Facility: [facility] Address: [address] [place] [address] Performed By: #### 5 7021-8 ####[facility]ATORYCLIA [id number] [address] [place] Nucleated RBC/100 WBC (Bld) [Ratio] 0.0 /100 WBC Normal [facility] Comment on above: Order Comment: Speci men Type: BLOOD SPECIMENOrdering Facility: [facility] Address: [address] [address] Performed By: #### 5 7021-8 ####[facility]ATORYCLIA [id number] [address] [place] Platelet mean volume (Bld) [Entitic vol] 11.1 fL Normal 9.0-12.7 [facility] Comment on above: Order Comment: Speci men Type: BLOOD SPECIMENOrdering Facility: [facility] Address: [address] [place], [place] [address] Performed By: #### 5 7021-8 ####[facility]ORATORYCLIA [id number] [address] Platelets (Bld) [#/Vol] 285 10*3/uL Normal 150-400 [facility] Comment on above: Order Comment: Speci men Type: BLOOD SPECIMENOrdering Facility: [facility] Address: [address] [place] [address] Performed By: #### 5 7021-8 ####[facility]ORATORYCLIA [id number] [address] OF [facility] RBC (Bld) [#/Vol] 3.28 10*6/uL Low 4.20-6.00 [facility] Comment on above: Order Comment: Speci men Type: BLOOD SPECIMENOrdering Facility: [facility] Address: [address] [place] [address] Performed By: #### 5 7021-8 ####[facility]ORATORYCLIA [id number] [address] OF [facility] WBC (Bld) [#/Vol] 10.36 10*3/uL Normal 3.70-11.00 [facility] Comment on above: Order Comment: Speci men Type: BLOOD SPECIMENOrdering Facility: [facility] Address: [address] [place] [address] Performed By: #### 5 7021-8 ####[facility]ATORYCLIA [id number] [address] Legionella Ag Ur Qlon 2021 Legionella sp Ag Ql (U) Negative Normal Negative [facility] Comment on above: Order Comment: Speci men Type: URINE SPECIMENOrdering Facility: [facility] Address: [address] [place] [address] Performed By: #### 3 2781-7 ####[facility]ATORYCLIA [id number] [address] [place] Magnesium SerPl-mCncon 07-24 Magnesium [Mass/Vol] 2.3 mg/dL Normal 1.7-2.3 [facility] Comment on above: Order Comment: Speci men Type: BLOOD SPECIMENOrdering Facility: [facility] Address: [address] [place] [address] Performed By: #### 1 9123-9, PROCCARLITOS, 2776-1, 87448-4 ####[facility]ORATORYCLIA [id number] [address] [place] NURSING PROGon 07-24-2021 NURSING PROG Normal [facility] PROCALCITONIN (LAB)on 2021 Procalcitonin [Mass/Vol] 0.15 ng/mL High <0.09 [facility] Comment on above: Order Comment: Speci men Type: BLOOD SPECIMENOrdering Facility: [facility] Address: [address] [place] [address] Result Comment: For a guided interpretation of test results, please visit the Change in Procalcitonin Calculator, [email or web address]. Performed By: #### 1 9123-9, KATIE, 2776-05, 95769-8 ####[facility]ORATORYCLIA [id number] [address] [place] Phosphate SerPl-mCncon 07-24 Phosphate [Mass/Vol] 3.9 mg/dL Normal 2.7-4.8 [facility] Comment on above: Order Comment: Speci men Type: BLOOD SPECIMENOrdering Facility: [facility] Address: [address] [place] [address] Performed By: #### 1 9123-9, PROCAL, 2776-1, 28845-5 ####[facility]ATORYCLIA [id number] [address] [place] STREPTOCOCCUS PNEUMONIAE AGo n 07-24-2021 STREPTOCOCCUS PNEUMONIAE AG Normal [facility] Comment on above: Performed By: #### S PNAG ####[facility]ORATORYCLIA [id number] [address] aPTT PPPon 07-24-2021 aPTT Coag (PPP) [Time] 60.8 s High 23.0-32.4 [facility] Comment on above: Order Comment: Speci men Type: BLOOD SPECIMENOrdering Facility: [facility] Address: [address] [place] [address] Performed By: #### 1 4979-9 ####[facility]ATORYCLIA [id number] [address] aPTT Coag (PPP) [Time] 38.2 s High 23.0-32.4 [facility] Comment on above: Order Comment: Speci men Type: BLOOD SPECIMENOrdering Facility: [facility] Address: [address] [place] [address] Performed By: #### 1 4979-9 ####[facility]ORYCLIA [id number] [address] aPTT Coag (PPP) [Time] 35.9 s High 23.0-32.4 [facility] Comment on above: Order Comment: Speci men Type: BLOOD SPECIMENOrdering Facility: [facility] Address: [address] [place] [address] Performed By: #### 1 4979-9 ####[facility]ORYCLIA [id number] [address] aPTT Coag (PPP) [Time] 28.8 s Normal 23.0-32.4 [facility] Comment on above: Order Comment: Speci men Type: BLOOD SPECIMENOrdering Facility: [facility] Address: [address] [place] [address] Performed By: #### 1 4979-9 ####[facility]ATORYCLIA [id number] [address] OF [facility] ALLIED HEALTHon 07-23-2021 ALLIED HEALTH Normal [facility] ALLIED HEALTH Normal [facility] ALLIED HEALTH Normal [facility] ARTERIAL BLOOD GASESon 07-23 Base excess Calc (Bld) [Moles/Vol] 4 mmol/L High 0-2 [facility] Comment on above: Order Comment: Speci men Type: ARTERIAL BLOOD SPECIMENOrdering Facility: [facility] Address: [address] [place] [address] Performed By: #### A LLBG ####[facility]ORATORYCLIA [id number] [address] STATES [facility] Body temperature 100.58 [degF] Normal [facility] Comment on above: Order Comment: Speci men Type: ARTERIAL BLOOD SPECIMENOrdering Facility: [facility] Address: [address] [place] [address] Performed By: #### A LLBG ####[facility]ATORYCLIA [id number] [address] [place] CALCIUM IONIZED, PH CORRECTED 1.26 mmol/L Normal 1.08-1.30 [facility] Comment on above: Order Comment: Speci men Type: ARTERIAL BLOOD SPECIMENOrdering Facility: [facility] Address: [address] [place] [address] Performed By: #### A LLBG ####[facility]ATORYCLIA [id number] [address] [place] Calcium.ionized (BldV) [Mass/Vol] 1.25 mmol/L Normal 1.08-1.30 [facility] Comment on above: Order Comment: Speci men Type: ARTERIAL BLOOD SPECIMENOrdering Facility: [facility] Address: [address] [place] [address] Performed By: #### A LLBG ####[facility]ATORYCLIA [id number] [address] [place] Carboxyhemoglobin (BldA) [Mass fraction] 1.2 % Normal 0.0-2.0 [facility] Comment on above: Order Comment: Speci men Type: ARTERIAL BLOOD SPECIMENOrdering Facility: [facility] Address: [address] [place] [address] Result Comment: Carb oxyhemoglobin Reference Range for Smokers: 2.0-8.0% Performed By: #### A LLBG ####[facility]ORATORYCLIA [id number] [address] [place] CO2 (Bld) [Partial pressure] 46 mm Hg Normal 36-46 [facility] Comment on above: Order Comment: Speci men Type: ARTERIAL BLOOD SPECIMENOrdering Facility: [facility] Address: [address] [place] [address] Performed By: #### A LLBG ####[facility] LABORATORYCLIA [id number] [address] [place] CO2 [Moles/Vol] 27 mmol/L Normal 22-28 [facility] Comment on above: Order Comment: Speci men Type: ARTERIAL BLOOD SPECIMENOrdering Facility: [facility] Address: [address] [place] [address] Performed By: #### A LLBG ####[facility]ORATORYCLIA [id number] [address] [place] CO2 adjusted to patient's actual temperature (Bld) [Partial pressure] 48 mmHg High 36-46 [facility] Comment on above: Order Comment: Speci men Type: ARTERIAL BLOOD SPECIMENOrdering Facility: [facility] Address: [address] [place] [address] Performed By: #### A LLBG ####[facility]ATORYCLIA [id number] [place] [address] [place] Glucose [Mass/Vol] 134 mg/dL High 60-105 [facility] Comment on above: Order Comment: Speci men Type: ARTERIAL BLOOD SPECIMENOrdering Facility: [facility] Address: [address] [place] [address] Performed By: #### A LLBG ####[facility] LABORATORYCLIA [id number] [place] [address] [place] HCO3 (Bld) [Moles/Vol] 29 mmol/L High 22-26 [facility] Comment on above: Order Comment: Speci men Type: ARTERIAL BLOOD SPECIMENOrdering Facility: [facility] Address: [address] [address] Performed By: #### A LLBG ####[facility]ATORYCLIA [id number] [address] Hematocrit (Bld) [Volume fraction] 31.4 % Low 39.0-51.0 [facility] Comment on above: Order Comment: Speci men Type: ARTERIAL BLOOD SPECIMENOrdering Facility: [facility] Address: [address] [address] Performed By: #### A LLBG ####[facility]ORATORYCLIA [id number] [address] Hemoglobin (Bld) [Mass/Vol] 10.2 g/dL Low 13.0-17.0 [facility] Comment on above: Order Comment: Speci men Type: ARTERIAL BLOOD SPECIMENOrdering Facility: [facility] Address: [address] [place] [address] Performed By: #### A LLBG ####[facility] LABORATORYCLIA [id number] [address] [place] Methemoglobin (Bld) [Mass fraction] % Normal 0.0-1.5 [facility] Comment on above: Order Comment: Speci men Type: ARTERIAL BLOOD SPECIMENOrdering Facility: [facility] Address: [address] [place] [address] Performed By: #### A LLBG ####[facility]ORATORYCLIA [id number] [address] [place] O2 THERAPY Ventilator Normal [facility] Comment on above: Order Comment: Speci men Type: ARTERIAL BLOOD SPECIMENOrdering Facility: [facility] Address: [address] [place] [address] Performed By: #### A LLBG ####[facility]ATORYCLIA [id number] [address] [place] Oxygen (Bld) [Partial pressure] 113 mm Hg High 85-95 [facility] Comment on above: Order Comment: Speci men Type: ARTERIAL BLOOD SPECIMENOrdering Facility: [facility] Address: [address] [place] [address] Performed By: #### A LLBG ####[facility]ORATORYCLIA [id number] [address] [place] Oxygen adjusted to patient's actual temperature (Bld) [Partial pressure] 119 mmHg High 85-95 [facility] Comment on above: Order Comment: Speci men Type: ARTERIAL BLOOD SPECIMENOrdering Facility: [facility] Address: [address] [place] [address] Performed By: #### A LLBG ####[facility] LABORATORYCLIA [id number] OXYGEN SATURATION, ARTERIAL 98 % Normal 95-98 [facility] Comment on above: Order Comment: Speci men Type: ARTERIAL BLOOD SPECIMENOrdering Facility: [facility] Address: [address] [place] [address] Performed By: #### A LLBG ####[facility] LABORATORYCLIA [id number] Oxyhemoglobin (BldA) [Mass fraction] 96 % Normal 95-98 [facility] Comment on above: Order Comment: Speci men Type: ARTERIAL BLOOD SPECIMENOrdering Facility: [facility] Address: [address] [place] [address] Performed By: #### A LLBG ####[facility] LABORATORYCLIA [id number] [address] [place] pH (Bld) 7.41 [pH] Normal 7.35-7.45 [facility] Comment on above: Order Comment: Speci men Type: ARTERIAL BLOOD SPECIMENOrdering Facility: [facility] Address: [address] [place] [address] Performed By: #### A LLBG ####[facility]ATORYCLIA [id number] [address] [place] pH adjusted to patient's actual temperature (Bld) 7.40 Normal 7.35-7.45 [facility] Comment on above: Order Comment: Speci men Type: ARTERIAL BLOOD SPECIMENOrdering Facility: [facility] Address: [address] [place] [address] Performed By: #### A LLBG ####[facility] LABORATORYCLIA [id number] [address] STATES [facility] Potassium [Moles/Vol] 4.3 mmol/L Normal 3.5-5.0 [facility] Comment on above: Order Comment: Speci men Type: ARTERIAL BLOOD SPECIMENOrdering Facility: [facility] Address: [address] [place] [address] Performed By: #### A LLBG ####[facility]ATORYCLIA [id number] [address] STATES OF [facility] Sodium [Moles/Vol] 144 mmol/L Normal 136-144 [facility] Comment on above: Order Comment: Speci men Type: ARTERIAL BLOOD SPECIMENOrdering Facility: [facility] Address: [address] [place] [address] Performed By: #### A LLBG ####[facility]ORATORYCLIA [id number] [address] [place] Bacteria CSF Culton 07-24-19 22 Bacteria identified Cx Nom (CSF) Abnormal [facility] Comment on above: Performed By: #### 6 06-4 ####[facility]ORYCLIA [id number] [address] [place] Basic metabolic 2000 panelon 07-23-2021 Anion gap [Moles/Vol] 12 mmol/L Normal 9-18 [facility] Comment on above: Order Comment: Speci men Type: BLOOD SPECIMENOrdering Facility: [facility] Address: [address] [place] [address] Performed By: #### 2 4321-2 ####[facility]ORYCLIA [id number] [address] [place] Calcium [Mass/Vol] 9.7 mg/dL Normal 8.5-10.2 [facility] Comment on above: Order Comment: Speci men Type: BLOOD SPECIMENOrdering Facility: [facility] Address: [address] [place] [address] Performed By: #### 2 4321-2 ####[facility]ATORYCLIA [id number] [place] [address] [place] Chloride [Moles/Vol] 105 mmol/L Normal 97-105 [facility] Comment on above: Order Comment: Speci men Type: BLOOD SPECIMENOrdering Facility: [facility] Address: [address] [place] [address] Performed By: #### 2 4321-2 ####[facility]ATORYCLIA [id number] [place] [address] [place] CO2 [Moles/Vol] 28 mmol/L Normal 22-30 [facility] Comment on above: Order Comment: Speci men Type: BLOOD SPECIMENOrdering Facility: [facility] Address: [address] [place] [address] Performed By: #### 2 4321-2 ####[facility]ORYCLIA [id number] [address] [place] Creatinine [Mass/Vol] 0.78 mg/dL Normal 0.73-1.22 [facility] Comment on above: Order Comment: Speci men Type: BLOOD SPECIMENOrdering Facility: [facility] Address: [address] [place] [address] Performed By: #### 2 4321-2 ####[facility]ORYCLIA [id number] [address] [place] ESTIMATED GLOMERULAR FILTRATION RATE 97 mL/min/1.73m??? Normal >=60 [facility] Comment on above: Order Comment: Speci men Type: BLOOD SPECIMENOrdering Facility: [facility] Address: [address] [place] [address] Result Comment: Luzmaria mated Glomerular Filtration Rate [...] actual GFR. Performed By: #### 2 4321-2 ####[facility]ATORYCLIA [id number] [place] [address] [place] Glucose [Mass/Vol] 127 mg/dL High 74-99 [facility] Comment on above: Order Comment: Speci men Type: BLOOD SPECIMENOrdering Facility: [facility] Address: [address] [place] [address] Result Comment: The [place] Diabetes Association (ADA) provides guidance for cutoff [...] Standards of Medical Care in Diabetes 2016, [place] [employer] Association. Diabetes Care. 2016.39(Suppl 1). Performed By: #### 2 4321-2 ####[facility]ATORYCLIA [id number] [place] [address] [place] Potassium [Moles/Vol] 4.3 mmol/L Normal 3.7-5.1 [facility] Comment on above: Order Comment: Speci men Type: BLOOD SPECIMENOrdering Facility: [facility] Address: [address] [place], [place] [address] Performed By: #### 2 4321-2 ####[facility]ATORYCLIA [id number] [place] [id number] [place] Sodium [Moles/Vol] 145 mmol/L High 136-144 [facility] Comment on above: Order Comment: Speci men Type: BLOOD SPECIMENOrdering Facility: [facility] Address: [address] [place] [address] Performed By: #### 2 4321-2 ####[facility]ATORYCLIA [id number] [address] STATES [facility] Urea nitrogen [Mass/Vol] 37 mg/dL High 9-24 [facility] Comment on above: Order Comment: Speci men Type: BLOOD SPECIMENOrdering Facility: [facility] Address: [address] [place] [address] Performed By: #### 2 4321-2 ####[facility]ATORYCLIA [id number] [address] C diff Tox gens Stl Ql MEGAN+p robeon 07-23-2021 C. difficile toxin genes MEGAN+probe Ql (Stl) Negative Normal Negative for C. difficile toxin by PCR [facility] Comment on above: Order Comment: Speci men Type: STOOL SPECIMENOrdering Facility: [facility] Address: [address] [place] [address] Performed By: #### 5 4067-4 ####[facility]ATORYCLIA [id number] [address] [place] CBC W Auto Differential pane l (Bld)on 07-23-2021 Basophils (Bld) [#/Vol] 0.07 10*3/uL Normal <0.11 [facility] Comment on above: Order Comment: Speci men Type: BLOOD SPECIMENOrdering Facility: [facility] Address: [address] [place] [address] Performed By: #### 5 7021-8 ####[facility]ATORYCLIA [id number] [address] Basophils/100 WBC (Bld) 0.5 % Normal [facility] Comment on above: Order Comment: Speci men Type: BLOOD SPECIMENOrdering Facility: [facility] Address: [address] [place] [address] Performed By: #### 5 7021-8 ####[facility]ATORYCLIA [id number] [address] Differential cell count method Nom (Bld) Auto Normal [facility] Comment on above: Order Comment: Speci men Type: BLOOD SPECIMENOrdering Facility: [facility] Address: [address] [place] [address] Performed By: #### 5 7021-8 ####[facility]ATORYCLIA [id number] [address] Eosinophils (Bld) [#/Vol] 10*3/uL Normal <0.46 [facility] Comment on above: Order Comment: Speci men Type: BLOOD SPECIMENOrdering Facility: [facility] Address: [address] [place] [address] Performed By: #### 5 7021-8 ####[facility]ATORYCLIA [id number] [address] Eosinophils/100 WBC (Bld) 0.2 % Normal [facility] Comment on above: Order Comment: Speci men Type: BLOOD SPECIMENOrdering Facility: [facility] Address: [address] [place] [address] Performed By: #### 5 7021-8 ####[facility]ATORYCLIA [id number] [address] [place] Erythrocyte distribution width (RBC) [Ratio] 16.7 % High 11.5-15.0 [facility] Comment on above: Order Comment: Speci men Type: BLOOD SPECIMENOrdering Facility: [facility] Address: [address] [place] [address] Performed By: #### 5 7021-8 ####[facility]ATORYCLIA [id number] [address] Hematocrit (Bld) [Volume fraction] 32.8 % Low 39.0-51.0 [facility] Comment on above: Order Comment: Speci men Type: BLOOD SPECIMENOrdering Facility: [facility] Address: [address] [place] [address] Performed By: #### 5 7021-8 ####[facility]ATORYCLIA [id number] [address] [place] Hemoglobin (Bld) [Mass/Vol] 9.7 g/dL Low 13.0-17.0 [facility] Comment on above: Order Comment: Speci men Type: BLOOD SPECIMENOrdering Facility: [facility] Address: [address] [place] [address] Performed By: #### 5 7021-8 ####[facility]ATORYCLIA [id number] [address] IMMATURE GRAN % 0.7 % Normal [facility] Comment on above: Order Comment: Speci men Type: BLOOD SPECIMENOrdering Facility: [facility] Address: [address] [place] [address] Performed By: #### 5 7021-8 ####[facility]ATORYCLIA [id number] [address] IMMATURE GRAN ABS 0.09 k/uL Normal <0.10 [facility] Comment on above: Order Comment: Speci men Type: BLOOD SPECIMENOrdering Facility: [facility] Address: [address] [place] [address] Performed By: #### 5 7021-8 ####[facility]ATORYCLIA [id number] [address] [place] Lymphocytes (Bld) [#/Vol] 1.94 10*3/uL Normal 1.00-4.00 [facility] Comment on above: Order Comment: Speci men Type: BLOOD SPECIMENOrdering Facility: [facility] Address: [address] [place] [address] Performed By: #### 5 7021-8 ####[facility]ATORYCLIA [id number] [address] [place] Lymphocytes/100 WBC (Bld) 14.6 % Normal [facility] Comment on above: Order Comment: Speci men Type: BLOOD SPECIMENOrdering Facility: [facility] Address: [address] [place] [address] Performed By: #### 5 7021-8 ####[facility]ATORYCLIA [id number] [address] MCH (RBC) [Entitic mass] 27.2 pg Normal 26.0-34.0 [facility] Comment on above: Order Comment: Speci men Type: BLOOD SPECIMENOrdering Facility: [facility] Address: [address] [place] [address] Performed By: #### 5 7021-8 ####[facility]ATORYCLIA [id number] [address] MCHC (RBC) [Mass/Vol] 29.6 g/dL Low 30.5-36.0 [facility] Comment on above: Order Comment: Speci men Type: BLOOD SPECIMENOrdering Facility: [facility] Address: [address] [place] [address] Performed By: #### 5 7021-8 ####[facility]ORYCLIA [id number] [address] MCV (RBC) [Entitic vol] 92.1 fL Normal 80.0-100.0 [facility] Comment on above: Order Comment: Speci men Type: BLOOD SPECIMENOrdering Facility: [facility] Address: [address] [place] [address] Performed By: #### 5 7021-8 ####[facility]ATORYCLIA [id number] [address] Monocytes (Bld) [#/Vol] 0.74 10*3/uL Normal <0.87 [facility] Comment on above: Order Comment: Speci men Type: BLOOD SPECIMENOrdering Facility: [facility] Address: [address] [place] [address] Performed By: #### 5 7021-8 ####[facility]ATORYCLIA [id number] [address] [place] Monocytes/100 WBC (Bld) 5.6 % Normal [facility] Comment on above: Order Comment: Speci men Type: BLOOD SPECIMENOrdering Facility: [facility] Address: [address] [place] [address] Performed By: #### 5 7021-8 ####[facility]ATORYCLIA [id number] [place] [address] [place] Neutrophils (Bld) [#/Vol] 10.43 10*3/uL High 1.45-7.50 [facility] Comment on above: Order Comment: Speci men Type: BLOOD SPECIMENOrdering Facility: [facility] Address: [address] [place] [address] Performed By: #### 5 7021-8 ####[facility]ATORYCLIA [id number] [address] [place] Neutrophils/100 WBC (Bld) 78.4 % Normal [facility] Comment on above: Order Comment: Speci men Type: BLOOD SPECIMENOrdering Facility: [facility] Address: [address] [place] [address] Performed By: #### 5 7021-8 ####[facility]ATORYCLIA [id number] [place] [address] [place] Nucleated RBC (Bld) [#/Vol] 10*3/uL Normal <0.01 [facility] Comment on above: Order Comment: Speci men Type: BLOOD SPECIMENOrdering Facility: [facility] Address: [address] [place] [address] Performed By: #### 5 7021-8 ####[facility]ATORYCLIA [id number] [address] [place] Nucleated RBC/100 WBC (Bld) [Ratio] 0.0 /100 WBC Normal [facility] Comment on above: Order Comment: Speci men Type: BLOOD SPECIMENOrdering Facility: [facility] Address: [address] [place] [address] Performed By: #### 5 7021-8 ####[facility]ATORYCLIA [id number] [address] [place] Platelet mean volume (Bld) [Entitic vol] 11.0 fL Normal 9.0-12.7 [facility] Comment on above: Order Comment: Speci men Type: BLOOD SPECIMENOrdering Facility: [facility] Address: [address] [place] [address] Performed By: #### 5 7021-8 ####[facility]ATORYCLIA [id number] [address] [place] Platelets (Bld) [#/Vol] 381 10*3/uL Normal 150-400 [facility] Comment on above: Order Comment: Speci men Type: BLOOD SPECIMENOrdering Facility: [facility] Address: [address] [place] [address] Performed By: #### 5 7021-8 ####[facility]ATORYCLIA [id number] [address] [place] RBC (Bld) [#/Vol] 3.56 10*6/uL Low 4.20-6.00 [facility] Comment on above: Order Comment: Speci men Type: BLOOD SPECIMENOrdering Facility: [facility] Address: [address] [place] [address] Performed By: #### 5 7021-8 ####[facility]ORATORYCLIA [id number] [place] [address] [place] WBC (Bld) [#/Vol] 13.29 10*3/uL High 3.70-11.00 [facility] Comment on above: Order Comment: Speci men Type: BLOOD SPECIMENOrdering Facility: [facility] Address: [address] [place], [place] [address] Performed By: #### 5 7021-8 ####[facility]ATORYCLIA [id number] [address] CONSULT PROGon 07-23-2021 CONSULT PROG Normal [facility] CONSULT PROG Normal [facility] CSF MANUAL DIFFon 07-23-2021 DIF TTL, CSF 100 cells counted Normal [facility] Comment on above: Order Comment: Speci men Type: CEREBROSPINAL FLUIDOrdering Facility: [facility] Address: [address] [place] [address] Performed By: #### L [id number], [id number], 48786-2 ####[facility]ATORYCLIA [id number] [place] [address] [place] LYMPH%, CSF 2 % Low 50-90 [facility] Comment on above: Order Comment: Speci men Type: CEREBROSPINAL FLUIDOrdering Facility: [facility] Address: [address] [place] [address] Performed By: #### L [id number], PVK2746, 10531-3 ####[facility]ATORYCLIA [id number] [place] [address] [place] MONO%, CSF 9 % Low 10-50 [facility] Comment on above: Order Comment: Speci men Type: CEREBROSPINAL FLUIDOrdering Facility: [facility] Address: [address] [place] [address] Performed By: #### L [id number], KKM3633, 61168-6 ####[facility]ATORYCLIA [id number] [place] [address] [place] NEUT%, CSF 89 % High 0-3 [facility] Comment on above: Order Comment: Speci men Type: CEREBROSPINAL FLUIDOrdering Facility: [facility] Address: [address] [place] [address] Performed By: #### L [id number], IBI3817, 86159-8 ####[facility]ATORYCLIA [id number] [address] CSF PATHOLOGIST INTERP (LAB REFLEX ORDER-NO BILL)on 07-23-2021 CSF STAFF REVIEW Negative for maligna nt cells. Numerous bacterial organisms present, cocci in pairs and chains. Recommend correlation with CSF culture results. Normal [facility] Comment on above: Order Comment: Speci men Type: CEREBROSPINAL FLUIDOrdering Facility: [facility] Address: [address] [place] [address] Performed By: #### L [id number], [id number], 17252-8 ####[facility]ATORYCLIA [id number] [address] Pathologist name Reviewed by Amador Stevens MD Normal [facility] Comment on above: Order Comment: Speci men Type: CEREBROSPINAL FLUIDOrdering Facility: [facility] Address: [address] [place] [address] Performed By: #### L [id number], HOD2057, 06218-7 ####[facility]ATORYCLIA [id number] [address] OF [facility] CT BRAIN WO IVCONon 07-24-19 CT BRAIN WO IVCON Normal [facility] Cell count panel (CSF)on Clarity (CSF) Clear Normal Clear [facility] Comment on above: Order Comment: Speci men Type: CEREBROSPINAL FLUIDOrdering Facility: [facility] Address: [address] [place] [address] Performed By: #### L [id number], XKL1200, 26691-0 ####[facility]ATORYCLIA [id number] [address] Clarity (Unsp spec) Not Indicated Normal Clear [facility] Comment on above: Order Comment: Speci men Type: CEREBROSPINAL FLUIDOrdering Facility: [facility] Address: [address] [place] [address] Performed By: #### L [id number], ADJ9339, 96307-6 ####[facility]ATORYCLIA [id number] [address] Color (CSF) Colorless Normal Colorless [facility] Comment on above: Order Comment: Speci men Type: CEREBROSPINAL FLUIDOrdering Facility: [facility] Address: [address] [place] [address] Performed By: #### L [id number], UOU5554, 95123-5 ####[facility] LABORATORYCLIA [id number] [address] Color (Spun CSF) Not Indicated Normal Colorless [facility] Comment on above: Order Comment: Speci men Type: CEREBROSPINAL FLUIDOrdering Facility: [facility] Address: [address] [place] [address] Performed By: #### L [id number], JYW6412, 92322-2 ####[facility]ATORYCLIA [id number] [address] CSF [employer] Normal [facility] Comment on above: Order Comment: Speci men Type: CEREBROSPINAL FLUIDOrdering Facility: [facility] Address: [address] [place] [address] Performed By: #### L [id number], YEH1989, 07893-6 ####[facility]ATORYCLIA [id number] [address] RBC Manual cnt (CSF) [#/Vol] 7 cells/uL High 0-5 [facility] Comment on above: Order Comment: Speci men Type: CEREBROSPINAL FLUIDOrdering Facility: [facility] Address: [address] [place] [address] Performed By: #### L [id number], THS3129, 50643-9 ####[facility]ATORYCLIA [id number] [address] WBC Manual cnt (CSF) [#/Vol] 193 cells/uL High 0-5 [facility] Comment on above: Order Comment: Speci men Type: CEREBROSPINAL FLUIDOrdering Facility: [facility] Address: [address] [place] [address] Performed By: #### L [id number], [id number], 29803-0 ####[facility]ATORYCLIA [id number] [address] [place] Glucose CSF-mCncon 2 Glucose (CSF) [Mass/Vol] 81 mg/dL High 40-70 [facility] Comment on above: Order Comment: Speci men Type: CEREBROSPINAL FLUIDOrdering Facility: [facility] Address: [address] [place] [address] Result Comment: Lumb ar CSF glucose values of healthy patients are approximately 60% of the plasma values and must always be compared with a concurrently measured plasma value for adequate clinical interpretation.References: 1. Glucose HK (GLUC3) [package insert V 12.0 French]. [employer], [place], [place]. September 2015. 2. Michelle Moore, Loki HGarfield (2015). Chapter 7: Glucose and Lactate. Marianela Alcocer al.(eds.), Cerebrospinal Fluid in Clinical Neurology. [place]: [employer]. Performed By: #### 2 342-4, 2880-3 ####[facility]ORATORYCLIA [id number] [address] [place] NURSING PROGon 07-23-2021 NURSING PROG Normal [facility] NURSING PROG Normal [facility] Prot CSF-mCncon 07-23-2021 Protein (CSF) [Mass/Vol] 68 mg/dL High 15-45 [facility] Comment on above: Order Comment: Speci men Type: CEREBROSPINAL FLUIDOrdering Facility: [facility] Address: [address] [place] [address] Performed By: #### 2 342-4, 2880-3 ####[facility]ORATORYCLIA [id number] [address] [place] Urinalysis complete panel (U )on 07-23-2021 Bilirubin Ql (U) Negative Normal Negative [facility] Comment on above: Order Comment: Speci men Type: URINE SPECIMENOrdering Facility: [facility] Address: [address] [place] [address] Performed By: #### 2 4356-8 ####[facility]ATORYCLIA [id number] [address] [place] Clarity (Unsp spec) Clear Normal Clear [facility] Comment on above: Order Comment: Speci men Type: URINE SPECIMENOrdering Facility: [facility] Address: [address] [address] Performed By: #### 2 4356-8 ####[facility]ORATORYCLIA [id number] [address] [place] Color (U) Light Yellow Normal yellow [facility] Comment on above: Order Comment: Speci men Type: URINE SPECIMENOrdering Facility: [facility] Address: [address] [address] Performed By: #### 2 4356-8 ####[facility]ORATORYCLIA [id number] [address] Glucose Test strip (U) [Mass/Vol] Negative Normal Negative [facility] Comment on above: Order Comment: Speci men Type: URINE SPECIMENOrdering Facility: [facility] Address: [address] [place] [address] Performed By: #### 2 4356-8 ####[facility]ATORYCLIA [id number] [address] [place] Hemoglobin Ql (U) Negative Normal Negative [facility] Comment on above: Order Comment: Speci men Type: URINE SPECIMENOrdering Facility: [facility] Address: [address] [place] [address] Performed By: #### 2 4356-8 ####[facility] LABORATORYCLIA [id number] [address] [place] Ketones Ql (U) Negative Normal Negative [facility] Comment on above: Order Comment: Speci men Type: URINE SPECIMENOrdering Facility: [facility] Address: [address] [place] [address] Performed By: #### 2 4356-8 ####[facility]ORATORYCLIA [id number] [address] [place] Leukocyte esterase Test strip Ql (U) Negative Normal Negative [facility] Comment on above: Order Comment: Speci men Type: URINE SPECIMENOrdering Facility: [facility] Address: [address] [place] [address] Performed By: #### 2 4356-8 ####[facility]ATORYCLIA [id number] [address] STATES [facility] Nitrite Ql (U) Negative Normal Negative [facility] Comment on above: Order Comment: Speci men Type: URINE SPECIMENOrdering Facility: [facility] Address: [address] [place] [address] Performed By: #### 2 4356-8 ####[facility]ATORYCLIA [id number] [address] [place] pH (U) 6.0 [pH] Normal 5.0-8.0 [facility] Comment on above: Order Comment: Speci men Type: URINE SPECIMENOrdering Facility: [facility] Address: [address] [place] [address] Performed By: #### 2 4356-8 ####[facility]PITALCLIA [id number] [address] Protein (U) [Mass/Vol] 1+ Abnormal Negative [facility] Comment on above: Order Comment: Speci men Type: URINE SPECIMENOrdering Facility: [facility] Address: [address] [place] [address] Performed By: #### 2 4356-8 ####[facility]ORYCLIA [id number] [address] RBC LM.HPF (Urine sed) [#/Area] 0-3 /HPF Normal 0-3 /HPF [facility] Comment on above: Order Comment: Speci men Type: URINE SPECIMENOrdering Facility: [facility] Address: [address] [place] [address] Performed By: #### 2 4356-8 ####[facility]ORYCLIA [id number] [address] Specific gravity (U) [Rel density] 1.018 Normal 1.005-1.030 [facility] Comment on above: Order Comment: Speci men Type: URINE SPECIMENOrdering Facility: [facility] Address: [address] [place] [address] Performed By: #### 2 4356-8 ####[facility]ORYCLIA [id number] [address] [place] Urobilinogen Ql (U) Normal Normal Negative [facility] Comment on above: Order Comment: Speci men Type: URINE SPECIMENOrdering Facility: [facility] Address: [address] [place] [address] Performed By: #### 2 4356-8 ####[facility]ORYCLIA [id number] [address] STATES [facility] WBC LM.HPF (Urine sed) [#/Area] 0-5 /HPF Normal 0-5 /HPF [facility] Comment on above: Order Comment: Speci men Type: URINE SPECIMENOrdering Facility: [facility] Address: [address] [place] [address] Performed By: #### 2 4356-8 ####[facility]ATORYCLIA [id number] [address] [place] Vancomycin random [Mass/Vol] on 07-23-2021 Vancomycin [Mass/Vol] 12.9 ug/mL Normal 10.0-20.0 [facility] Comment on above: Order Comment: Speci men Type: BLOOD SPECIMENOrdering Facility: [facility] Address: [address] [place] [address] Result Comment: Refe rence ranges and high/low indicator flags are provided as general guidelines only. The treating physician must determine appropriate target levels/dosing based on the specific clinical situation. Performed By: #### 4 091-5 ####[facility]ORYCLIA [id number] [address] [place] XR CHEST 1V FRONTALon 2021 XR CHEST 1V FRONTAL Normal [facility] XR CHEST 1V FRONTAL Normal [facility] aPTT PPPon 07-23-2021 aPTT Coag (PPP) [Time] 32.3 s Normal 23.0-32.4 [facility] Comment on above: Order Comment: Speci men Type: BLOOD SPECIMENOrdering Facility: [facility] Address: [address] [place] [address] Performed By: #### 1 4979-9 ####[facility]ORYCLIA [id number] [address] aPTT Coag (PPP) [Time] 57.9 s High 23.0-32.4 [facility] Comment on above: Order Comment: Speci men Type: BLOOD SPECIMENOrdering Facility: [facility] Address: [address] [place] [address] Performed By: #### 1 4979-9 ####[facility]ORYCLIA [id number] [address] aPTT Coag (PPP) [Time] 46.3 s High 23.0-32.4 [facility] Comment on above: Order Comment: Speci men Type: BLOOD SPECIMENOrdering Facility: [facility] Address: [address] [place] [address] Performed By: #### 1 4979-9 ####[facility]ORYCLIA [id number] [place] [address] [place] Basic metabolic 2000 panelon 07-22-2021 Anion gap [Moles/Vol] 8 mmol/L Low 9-18 [facility] Comment on above: Order Comment: Speci men Type: BLOOD SPECIMENOrdering Facility: [facility] Address: [address] [place] [address] Performed By: #### 2 4321-2 ####[facility]ORYCLIA [id number] [address] STATES OF [facility] Calcium [Mass/Vol] 9.5 mg/dL Normal 8.5-10.2 [facility] Comment on above: Order Comment: Speci men Type: BLOOD SPECIMENOrdering Facility: [facility] Address: [address] [place] [address] Performed By: #### 2 4321-2 ####[facility]ATORYCLIA [id number] [address] Chloride [Moles/Vol] 105 mmol/L Normal 97-105 [facility] Comment on above: Order Comment: Speci men Type: BLOOD SPECIMENOrdering Facility: [facility] Address: [address] [place] [address] Performed By: #### 2 4321-2 ####[facility]ORYCLIA [id number] [address] CO2 [Moles/Vol] 32 mmol/L High 22-30 [facility] Comment on above: Order Comment: Speci men Type: BLOOD SPECIMENOrdering Facility: [facility] Address: [address] [place] [address] Performed By: #### 2 4321-2 ####[facility]ORYCLIA [id number] [address] Creatinine [Mass/Vol] 0.75 mg/dL Normal 0.73-1.22 [facility] Comment on above: Order Comment: Speci men Type: BLOOD SPECIMENOrdering Facility: [facility] Address: [address] [place] [address] Performed By: #### 2 4321-2 ####[facility]ORYCLIA [id number] [address] ESTIMATED GLOMERULAR FILTRATION RATE 98 mL/min/1.73m??? Normal >=60 [facility] Comment on above: Order Comment: Speci men Type: BLOOD SPECIMENOrdering Facility: [facility] Address: [address] [place] [address] Result Comment: Luzmaria mated Glomerular Filtration Rate [...] actual GFR. Performed By: #### 2 4321-2 ####[facility]ATORYCLIA [id number] [place] [address] [place] Glucose [Mass/Vol] 128 mg/dL High 74-99 [facility] Comment on above: Order Comment: Speci men Type: BLOOD SPECIMENOrdering Facility: [facility] Address: [address] [place] [address] Result Comment: The [place] Diabetes [employer] (ADA) provides guidance for cutoff [...] Standards of Medical Care in Diabetes 2016, [place] [employer]. Diabetes Care. 2016.39(Suppl 1). Performed By: #### 2 4321-2 ####[facility]ATORYCLIA [id number] [place] [address] [place] Potassium [Moles/Vol] 3.7 mmol/L Normal 3.7-5.1 [facility] Comment on above: Order Comment: Speci men Type: BLOOD SPECIMENOrdering Facility: [facility] Address: [address] [place] [address] Performed By: #### 2 4321-2 ####[facility]ATORYCLIA [id number] [place] [address] [place] Sodium [Moles/Vol] 145 mmol/L High 136-144 [facility] Comment on above: Order Comment: Speci men Type: BLOOD SPECIMENOrdering Facility: [facility] Address: [address] [place] [address] Performed By: #### 2 4321-2 ####[facility]ATORYCLIA [id number] [place] [address] [place] Urea nitrogen [Mass/Vol] 39 mg/dL High 9-24 [facility] Comment on above: Order Comment: Speci men Type: BLOOD SPECIMENOrdering Facility: [facility] Address: [address] [place] [address] Performed By: #### 2 4321-2 ####[facility]ATORYCLIA [id number] [address] [place] CASE MANAGEMon 07-22-2021 CASE MANAGEM Normal [facility] CBC W Auto Differential pane l (Bld)on 07-22-2021 Basophils (Bld) [#/Vol] 0.06 10*3/uL Normal <0.11 [facility] Comment on above: Order Comment: Speci men Type: BLOOD SPECIMENOrdering Facility: [facility] Address: [address] [place] [address] Performed By: #### 5 7021-8 ####[facility]ATORYCLIA [id number] [address] [place] Basophils/100 WBC (Bld) 0.5 % Normal [facility] Comment on above: Order Comment: Speci men Type: BLOOD SPECIMENOrdering Facility: [facility] Address: [address] [place] [address] Performed By: #### 5 7021-8 ####[facility]ORYCLIA [id number] [address] [place] Differential cell count method Nom (Bld) Auto Normal [facility] Comment on above: Order Comment: Speci men Type: BLOOD SPECIMENOrdering Facility: [facility] Address: [address] [place] [address] Performed By: #### 5 7021-8 ####[facility]ATORYCLIA [id number] [place] [address] [place] Eosinophils (Bld) [#/Vol] 0.44 10*3/uL Normal <0.46 [facility] Comment on above: Order Comment: Speci men Type: BLOOD SPECIMENOrdering Facility: [facility] Address: [address] [address] Performed By: #### 5 7021-8 ####[facility]ATORYCLIA [id number] [address] Eosinophils/100 WBC (Bld) 3.9 % Normal [facility] Comment on above: Order Comment: Speci men Type: BLOOD SPECIMENOrdering Facility: [facility] Address: [address] [place] [address] Performed By: #### 5 7021-8 ####[facility]ATORYCLIA [id number] [address] Erythrocyte distribution width (RBC) [Ratio] 17.0 % High 11.5-15.0 [facility] Comment on above: Order Comment: Speci men Type: BLOOD SPECIMENOrdering Facility: [facility] Address: [address] [place] [address] Performed By: #### 5 7021-8 ####[facility]ORYCLIA [id number] [address] Hematocrit (Bld) [Volume fraction] 32.0 % Low 39.0-51.0 [facility] Comment on above: Order Comment: Speci men Type: BLOOD SPECIMENOrdering Facility: [facility] Address: [address] [place] [address] Performed By: #### 5 7021-8 ####[facility]ORYCLIA [id number] [address] [place] Hemoglobin (Bld) [Mass/Vol] 9.3 g/dL Low 13.0-17.0 [facility] Comment on above: Order Comment: Speci men Type: BLOOD SPECIMENOrdering Facility: [facility] Address: [address] [place] [address] Performed By: #### 5 7021-8 ####[facility]ORYCLIA [id number] [address] [place] IMMATURE GRAN % 0.5 % Normal [facility] Comment on above: Order Comment: Speci men Type: BLOOD SPECIMENOrdering Facility: [facility] Address: [address] [place] [address] Performed By: #### 5 7021-8 ####[facility]ORYCLIA [id number] [address] OF [facility] IMMATURE GRAN ABS 0.06 k/uL Normal <0.10 [facility] Comment on above: Order Comment: Speci men Type: BLOOD SPECIMENOrdering Facility: [facility] Address: [address] [place] [address] Performed By: #### 5 7021-8 ####[facility]ORYCLIA [id number] [address] Lymphocytes (Bld) [#/Vol] 1.83 10*3/uL Normal 1.00-4.00 [facility] Comment on above: Order Comment: Speci men Type: BLOOD SPECIMENOrdering Facility: [facility] Address: [address] [place] [address] Performed By: #### 5 7021-8 ####[facility]ORYCLIA [id number] [address] Lymphocytes/100 WBC (Bld) 16.1 % Normal [facility] Comment on above: Order Comment: Speci men Type: BLOOD SPECIMENOrdering Facility: [facility] Address: [address] [place] [address] Performed By: #### 5 7021-8 ####[facility]ORYCLIA [id number] [address] MCH (RBC) [Entitic mass] 27.0 pg Normal 26.0-34.0 [facility] Comment on above: Order Comment: Speci men Type: BLOOD SPECIMENOrdering Facility: [facility] Address: [address] [place] [address] Performed By: #### 5 7021-8 ####[facility]ORYCLIA [id number] [address] MCHC (RBC) [Mass/Vol] 29.1 g/dL Low 30.5-36.0 [facility] Comment on above: Order Comment: Speci men Type: BLOOD SPECIMENOrdering Facility: [facility] Address: [address] [place] [address] Performed By: #### 5 7021-8 ####[facility]ORYCLIA [id number] [address] [place] MCV (RBC) [Entitic vol] 92.8 fL Normal 80.0-100.0 [facility] Comment on above: Order Comment: Speci men Type: BLOOD SPECIMENOrdering Facility: [facility] Address: [address] [place] [address] Performed By: #### 5 7021-8 ####[facility]ORYCLIA [id number] [address] [place] Monocytes (Bld) [#/Vol] 0.87 10*3/uL High <0.87 [facility] Comment on above: Order Comment: Speci men Type: BLOOD SPECIMENOrdering Facility: [facility] Address: [address] [place] [address] Performed By: #### 5 7021-8 ####[facility]ORYCLIA [id number] [address] [place] [facility] Monocytes/100 WBC (Bld) 7.6 % Normal [facility] Comment on above: Order Comment: Speci men Type: BLOOD SPECIMENOrdering Facility: [facility] Address: [address] [place] [address] Performed By: #### 5 7021-8 ####[facility]ORYCLIA [id number] [address] [place] Neutrophils (Bld) [#/Vol] 8.12 10*3/uL High 1.45-7.50 [facility] Comment on above: Order Comment: Speci men Type: BLOOD SPECIMENOrdering Facility: [facility] Address: [address] [place] [address] Performed By: #### 5 7021-8 ####[facility]ORYCLIA [id number] [address] Neutrophils/100 WBC (Bld) 71.4 % Normal [facility] Comment on above: Order Comment: Speci men Type: BLOOD SPECIMENOrdering Facility: [facility] Address: [address] [place] [address] Performed By: #### 5 7021-8 ####[facility]ORYCLIA [id number] [address] Nucleated RBC (Bld) [#/Vol] 10*3/uL Normal <0.01 [facility] Comment on above: Order Comment: Speci men Type: BLOOD SPECIMENOrdering Facility: [facility] Address: [address] [place] [address] Performed By: #### 5 7021-8 ####[facility]ORYCLIA [id number] [address] Nucleated RBC/100 WBC (Bld) [Ratio] 0.0 /100 WBC Normal [facility] Comment on above: Order Comment: Speci men Type: BLOOD SPECIMENOrdering Facility: [facility] Address: [address] [place] [address] Performed By: #### 5 7021-8 ####[facility]ORYCLIA [id number] [address] [place] Platelet mean volume (Bld) [Entitic vol] 10.8 fL Normal 9.0-12.7 [facility] Comment on above: Order Comment: Speci men Type: BLOOD SPECIMENOrdering Facility: [facility] Address: [address] [place] [address] Performed By: #### 5 7021-8 ####[facility]ORYCLIA [id number] [address] [place] Platelets (Bld) [#/Vol] 362 10*3/uL Normal 150-400 [facility] Comment on above: Order Comment: Speci men Type: BLOOD SPECIMENOrdering Facility: [facility] Address: [address] [place] [address] Performed By: #### 5 7021-8 ####[facility]ORYCLIA [id number] [address] [place] [facility] RBC (Bld) [#/Vol] 3.45 10*6/uL Low 4.20-6.00 [facility] Comment on above: Order Comment: Speci men Type: BLOOD SPECIMENOrdering Facility: [facility] Address: [address] [place] [address] Performed By: #### 5 7021-8 ####[facility]ORYCLIA [id number] [address] OF [facility] WBC (Bld) [#/Vol] 11.38 10*3/uL High 3.70-11.00 [facility] Comment on above: Order Comment: Speci men Type: BLOOD SPECIMENOrdering Facility: [facility] Address: [address] [place] [address] Performed By: #### 5 7021-8 ####[facility]ORYCLIA [id number] [address] Magnesium [facility] 07-22 Magnesium [Mass/Vol] 2.3 mg/dL Normal 1.7-2.3 [facility] Comment on above: Order Comment: Speci men Type: BLOOD SPECIMENOrdering Facility: [facility] Address: [address] [place] [address] Performed By: #### 1 9123-9, 2777-1, 63443-9 ####[facility]ORYCLIA [id number] [address] NT-proBNP SerPl-mCncon 07-22 Natriuretic peptide.B prohormone N-Terminal [Mass/Vol] 328 pg/mL High <125 [facility] Comment on above: Order Comment: Speci men Type: BLOOD SPECIMENOrdering Facility: [facility] Address: [address] [place] [address] Performed By: #### 1 9123-9, 2777-1, 74643-4 ####[facility]ORYCLIA [id number] [address] OF [facility] NURSING PROGon 07-22-2021 NURSING PROG Normal [facility] NUTRITIONon 07-22-2021 NUTRITION Normal [facility] Phosphate SerPl-mCncon 07-22 Phosphate [Mass/Vol] 3.5 mg/dL Normal 2.7-4.8 [facility] Comment on above: Order Comment: Speci men Type: BLOOD SPECIMENOrdering Facility: [facility] Address: [address] [place] [address] Performed By: #### 1 9123-9, 2777-1, 65735-9 ####[facility]ORYCLIA [id number] [address] THERAPY NTon 07-22-2021 THERAPY NT Normal [facility] THERAPY NT Normal [facility] aPTT PPPon 07-22-2021 aPTT Coag (PPP) [Time] 50.1 s High 23.0-32.4 [facility] Comment on above: Order Comment: Speci men Type: BLOOD SPECIMENOrdering Facility: [facility] Address: [address] [place] [address] Performed By: #### 1 4979-9 ####[facility]ORYCLIA [id number] [address] [place] ALLIED HEALTHon 07-21-2021 ALLIED HEALTH Normal [facility] Bacteria Spec Resp Culton Bacteria identified Respiratory culture Nom (Unsp spec) Abnormal [facility] Comment on above: Performed By: #### 3 2355-0 ####[facility]ORYCLIA [id number] [address] [place] Basic metabolic 2000 panelon 07-21-2021 Anion gap [Moles/Vol] 9 mmol/L Normal - [facility] Comment on above: Order Comment: Speci men Type: BLOOD SPECIMENOrdering Facility: [facility] Address: [address] [place] [address] Performed By: #### 1 9123-9, 27711-04, 85416-8 ####[facility]ATORYCLIA [id number] [place] [address] [place] Calcium [Mass/Vol] 9.9 mg/dL Normal 8.5-10.2 [facility] Comment on above: Order Comment: Speci men Type: BLOOD SPECIMENOrdering Facility: [facility] Address: [address] [place] [address] Performed By: #### 1 9123-9, 2776-05, 71213-2 ####[facility]ATORYCLIA [id number] [place] [address] [place] Chloride [Moles/Vol] 103 mmol/L Normal 97-105 [facility] Comment on above: Order Comment: Speci men Type: BLOOD SPECIMENOrdering Facility: [facility] Address: [address] [place] [address] Performed By: #### 1 9123-9, 2776-05, ####[facility]ATORYCLIA [id number] [place] [address] [place] CO2 [Moles/Vol] 33 mmol/L High 22-30 [facility] Comment on above: Order Comment: Speci men Type: BLOOD SPECIMENOrdering Facility: [facility] Address: [address] [address] Performed By: #### 1 9123-9, 2776-05, 93890-9 ####[facility]ATORYCLIA [id number] [place] [address] [place] Creatinine [Mass/Vol] 0.80 mg/dL Normal 0.73-1.22 [facility] Comment on above: Order Comment: Speci men Type: BLOOD SPECIMENOrdering Facility: [facility] Address: [address] [place] [address] Performed By: #### 1 9123-9, 2777-, 08700-1 ####[facility]PITALCLIA [id number] [address] OF [facility] ESTIMATED GLOMERULAR FILTRATION RATE 96 mL/min/1.73m??? Normal >=60 [facility] Comment on above: Order Comment: Shira feldman Type: BLOOD SPECIMENOrdering Facility: [facility] Address: [address] [place] [address] Result Comment: Luzmaria mated Glomerular Filtration Rate [...] GFR. Performed By: #### 1 9123-9, 2777-, 88325-4 ####[facility]PITALIA [id number] [address] [place] Glucose [Mass/Vol] 148 mg/dL High 74-99 [facility] Comment on above: Order Comment: Shira feldman Type: BLOOD SPECIMENOrdering Facility: [facility] Address: [address] [place] [address] Result Comment: The [place] Diabetes [employer] (ADA) provides guidance for cutoff [...] Standards of Medical Care in Diabetes 2016, [place] [employer]. Diabetes Care. 2016.39(Suppl 1). Performed By: #### 1 9123-9, 2777-, 61463-0 ####[facility]ORYCLIA [id number] [address] [place] Potassium [Moles/Vol] 4.1 mmol/L Normal 3.7-5.1 [facility] Comment on above: Order Comment: Speci men Type: BLOOD SPECIMENOrdering Facility: [facility] Address: [address] [place] [address] Performed By: #### 1 9123-9, 2777-1, 65734-0 ####[facility]ORYCLIA [id number] [address] [place] [facility] Sodium [Moles/Vol] 145 mmol/L High 136-144 [facility] Comment on above: Order Comment: Speci men Type: BLOOD SPECIMENOrdering Facility: [facility] Address: [address] [place] [address] Performed By: #### 1 9123-9, 2777-1, 21707-6 ####[facility]ATORYCLIA [id number] [address] STATES [facility] Urea nitrogen [Mass/Vol] 40 mg/dL High 9-24 [facility] Comment on above: Order Comment: Speci men Type: BLOOD SPECIMENOrdering Facility: [facility] Address: [address] [place] [address] Performed By: #### 1 9123-9, 2777-1, 64573-0 ####[facility] LABORATORYCLIA [id number] [place] CBC W Auto Differential pane l (Bld)on 07-21-2021 Basophils (Bld) [#/Vol] 0.06 10*3/uL Normal <0.11 [facility] Comment on above: Order Comment: Speci men Type: BLOOD SPECIMENOrdering Facility: [facility] Address: [address] [place] [address] Performed By: #### 5 7021-8 ####[facility] LABORATORYCLIA [id number] Basophils/100 WBC (Bld) 0.4 % Normal Northern [facility] Comment on above: Order Comment: Speci men Type: BLOOD SPECIMENOrdering Facility: [facility] Address: [address] [place] [address] Performed By: #### 5 7021-8 ####[facility]ORYCLIA [id number] [address] Differential cell count method Nom (Bld) Auto Normal [facility] Comment on above: Order Comment: Speci men Type: BLOOD SPECIMENOrdering Facility: [facility] Address: [address] [place] [address] Performed By: #### 5 7021-8 ####[facility]ATORYCLIA [id number] [address] STATES [facility] Eosinophils (Bld) [#/Vol] 0.04 10*3/uL Normal <0.46 [facility] Comment on above: Order Comment: Speci men Type: BLOOD SPECIMENOrdering Facility: [facility] Address: [address] [place] [address] Performed By: #### 5 7021-8 ####[facility]ATORYCLIA [id number] [address] Eosinophils/100 WBC (Bld) 0.3 % Normal [facility] Comment on above: Order Comment: Speci men Type: BLOOD SPECIMENOrdering Facility: [facility] Address: [address] [place] [address] Performed By: #### 5 7021-8 ####[facility]ORYCLIA [id number] [address] Erythrocyte distribution width (RBC) [Ratio] 17.0 % High 11.5-15.0 [facility] Comment on above: Order Comment: Speci men Type: BLOOD SPECIMENOrdering Facility: [facility] Address: [address] [place] [address] Performed By: #### 5 7021-8 ####[facility]ORYCLIA [id number] [address] Hematocrit (Bld) [Volume fraction] 33.1 % Low 39.0-51.0 [facility] Comment on above: Order Comment: Speci men Type: BLOOD SPECIMENOrdering Facility: [facility] Address: [address] [place] [address] Performed By: #### 5 7021-8 ####[facility]ORATORYCLIA [id number] [address] [place] Hemoglobin (Bld) [Mass/Vol] 9.7 g/dL Low 13.0-17.0 [facility] Comment on above: Order Comment: Speci men Type: BLOOD SPECIMENOrdering Facility: [facility] Address: [address] [place] [address] Performed By: #### 5 7021-8 ####[facility]ORYCLIA [id number] [address] IMMATURE GRAN % 0.5 % Normal [facility] Comment on above: Order Comment: Speci men Type: BLOOD SPECIMENOrdering Facility: [facility] Address: [address] [place] [address] Performed By: #### 5 7021-8 ####[facility]ORYCLIA [id number] [address] IMMATURE GRAN ABS 0.07 k/uL Normal <0.10 [facility] Comment on above: Order Comment: Speci men Type: BLOOD SPECIMENOrdering Facility: [facility] Address: [address] [place] [address] Performed By: #### 5 7021-8 ####[facility]ATORYCLIA [id number] [address] [place] Lymphocytes (Bld) [#/Vol] 1.99 10*3/uL Normal 1.00-4.00 [facility] Comment on above: Order Comment: Speci men Type: BLOOD SPECIMENOrdering Facility: [facility] Address: [address] [place] [address] Performed By: #### 5 7021-8 ####[facility]ATORYCLIA [id number] [address] Lymphocytes/100 WBC (Bld) 13.4 % Normal [facility] Comment on above: Order Comment: Speci men Type: BLOOD SPECIMENOrdering Facility: [facility] Address: [address] [place] [address] Performed By: #### 5 7021-8 ####[facility]ATORYCLIA [id number] [address] MCH (RBC) [Entitic mass] 27.2 pg Normal 26.0-34.0 [facility] Comment on above: Order Comment: Speci men Type: BLOOD SPECIMENOrdering Facility: [facility] Address: [address] [place] [address] Performed By: #### 5 7021-8 ####[facility]ATORYCLIA [id number] [address] STATES [facility] MCHC (RBC) [Mass/Vol] 29.3 g/dL Low 30.5-36.0 [facility] Comment on above: Order Comment: Speci men Type: BLOOD SPECIMENOrdering Facility: [facility] Address: [address] [place] [address] Performed By: #### 5 7021-8 ####[facility]ORYCLIA [id number] [address] [place] [facility] MCV (RBC) [Entitic vol] 92.7 fL Normal 80.0-100.0 [facility] Comment on above: Order Comment: Speci men Type: BLOOD SPECIMENOrdering Facility: [facility] Address: [address] [place] [address] Performed By: #### 5 7021-8 ####[facility]ORYCLIA [id number] [address] Monocytes (Bld) [#/Vol] 1.10 10*3/uL High <0.87 [facility] Comment on above: Order Comment: Speci men Type: BLOOD SPECIMENOrdering Facility: [facility] Address: [address] [place] [address] Performed By: #### 5 7021-8 ####[facility]ATORYCLIA [id number] [address] Monocytes/100 WBC (Bld) 7.4 % Normal [facility] Comment on above: Order Comment: Speci men Type: BLOOD SPECIMENOrdering Facility: [facility] Address: [address] [place] [address] Performed By: #### 5 7021-8 ####[facility] LABORATORYCLIA [id number] [address] [place] Neutrophils (Bld) [#/Vol] 11.61 10*3/uL High 1.45-7.50 [facility] Comment on above: Order Comment: Speci men Type: BLOOD SPECIMENOrdering Facility: [facility] Address: [address] [place] [address] Performed By: #### 5 7021-8 ####[facility]ORATORYCLIA [id number] [address] [place] Neutrophils/100 WBC (Bld) 78.0 % Normal [facility] Comment on above: Order Comment: Speci men Type: BLOOD SPECIMENOrdering Facility: [facility] Address: [address] [place] [address] Performed By: #### 5 7021-8 ####[facility]ORATORYCLIA [id number] [address] [place] Nucleated RBC (Bld) [#/Vol] 10*3/uL Normal <0.01 [facility] Comment on above: Order Comment: Speci men Type: BLOOD SPECIMENOrdering Facility: [facility] Address: [address] [place] [address] Performed By: #### 5 7021-8 ####[facility]ORATORYCLIA [id number] [address] [place] Nucleated RBC/100 WBC (Bld) [Ratio] 0.0 /100 WBC Normal [facility] Comment on above: Order Comment: Speci men Type: BLOOD SPECIMENOrdering Facility: [facility] Address: [address] [place] [address] Performed By: #### 5 7021-8 ####[facility]ORATORYCLIA [id number] [address] [place] Platelet mean volume (Bld) [Entitic vol] 10.4 fL Normal 9.0-12.7 [facility] Comment on above: Order Comment: Speci men Type: BLOOD SPECIMENOrdering Facility: [facility] Address: [address] [place] [address] Performed By: #### 5 7021-8 ####[facility]ORATORYCLIA [id number] [address] [place] Platelets (Bld) [#/Vol] 396 10*3/uL Normal 150-400 [facility] Comment on above: Order Comment: Speci men Type: BLOOD SPECIMENOrdering Facility: [facility] Address: [address] [place] [address] Performed By: #### 5 7021-8 ####[facility]ATORYCLIA [id number] [address] [place] RBC (Bld) [#/Vol] 3.57 10*6/uL Low 4.20-6.00 [facility] Comment on above: Order Comment: Speci men Type: BLOOD SPECIMENOrdering Facility: [facility] Address: [address] [place], [place] [address] Performed By: #### 5 7021-8 ####[facility]ATORYCLIA [id number] [address] [place] WBC (Bld) [#/Vol] 14.87 10*3/uL High 3.70-11.00 [facility] Comment on above: Order Comment: Speci men Type: BLOOD SPECIMENOrdering Facility: [facility] Address: [address] [place] [address] Performed By: #### 5 7021-8 ####[facility]ATORYCLIA [id number] [address] OF [facility] Gas and Carbon monoxide pane l (BldV)on 07-21-2021 Base excess Calc (BldV) [Moles/Vol] 7 mmol/L High 0-2 [facility] Comment on above: Order Comment: Speci men Type: VENOUS BLOOD SPECIMENOrdering Facility: [facility] Address: [address] [place] [address] Performed By: #### 2 4344-4 ####[facility]ORATORYCLIA [id number] [address] Body temperature 98.6 [degF] Normal [facility] Comment on above: Order Comment: Speci men Type: VENOUS BLOOD SPECIMENOrdering Facility: [facility] Address: [address] [place] [address] Performed By: #### 2 4344-4 ####[facility]ORATORYCLIA [id number] [address] [place] CALCIUM IONIZED, PH CORRECTED 1.21 mmol/L Normal 1.08-1.30 [facility] Comment on above: Order Comment: Speci men Type: VENOUS BLOOD SPECIMENOrdering Facility: [facility] Address: [address] [place] [address] Performed By: #### 2 4344-4 ####[facility]ATORYCLIA [id number] [address] [place] Calcium.ionized (BldV) [Mass/Vol] 1.23 mmol/L Normal 1.08-1.30 [facility] Comment on above: Order Comment: Speci men Type: VENOUS BLOOD SPECIMENOrdering Facility: [facility] Address: [address] [place] [address] Performed By: #### 2 4344-4 ####[facility]ORATORYCLIA [id number] [address] [place] Carboxyhemoglobin (BldV) [Mass fraction] 2.3 % High 0.0-2.0 [facility] Comment on above: Order Comment: Speci men Type: VENOUS BLOOD SPECIMENOrdering Facility: [facility] Address: [address] [place] [address] Result Comment: Carb oxyhemoglobin Reference Range for Smokers: 2.0-8.0% Performed By: #### 2 4344-4 ####[facility] LABORATORYCLIA [id number] [place] [address] [place] CO2 (BldV) [Partial pressure] 58 mm[Hg] High 42-55 [facility] Comment on above: Order Comment: Speci men Type: VENOUS BLOOD SPECIMENOrdering Facility: [facility] Address: [address] [place] [address] Performed By: #### 2 4344-4 ####[facility]ATORYCLIA [id number] [place] [address] [place] CO2 [Moles/Vol] 31 mmol/L High 25-29 [facility] Comment on above: Order Comment: Speci men Type: VENOUS BLOOD SPECIMENOrdering Facility: [facility] Address: [address] [place] [address] Performed By: #### 2 4344-4 ####[facility]ATORYCLIA [id number] [place] [address] [place] Glucose [Mass/Vol] 146 mg/dL High 60-105 [facility] Comment on above: Order Comment: Speci men Type: VENOUS BLOOD SPECIMENOrdering Facility: [facility] Address: [address] [place] [address] Performed By: #### 2 4344-4 ####[facility]ATORYCLIA [id number] [place] [address] [place] HCO3 (Bld) [Moles/Vol] 33 mmol/L High 24-28 [facility] Comment on above: Order Comment: Speci men Type: VENOUS BLOOD SPECIMENOrdering Facility: [facility] Address: [address] [place] [address] Performed By: #### 2 4344-4 ####[facility]ATORYCLIA [id number] [address] [place] Hematocrit (Bld) [Volume fraction] 30.1 % Low 39.0-51.0 [facility] Comment on above: Order Comment: Speci men Type: VENOUS BLOOD SPECIMENOrdering Facility: [facility] Address: [address] [place] [address] Performed By: #### 2 4344-4 ####[facility]ATORYCLIA [id number] [address] [place] Hemoglobin (Bld) [Mass/Vol] 9.7 g/dL Low 13.0-17.0 [facility] Comment on above: Order Comment: Speci men Type: VENOUS BLOOD SPECIMENOrdering Facility: [facility] Address: [address] [place] [address] Performed By: #### 2 4344-4 ####[facility]ATORYCLIA [id number] [address] Methemoglobin (Bld) [Mass fraction] % Normal 0.0-1.5 [facility] Comment on above: Order Comment: Speci men Type: VENOUS BLOOD SPECIMENOrdering Facility: [facility] Address: [address] [place] [address] Performed By: #### 2 4344-4 ####[facility]ORATORYCLIA [id number] [address] [place] O2 THERAPY NC = Nasal Cannula Normal [facility] Comment on above: Order Comment: Speci men Type: VENOUS BLOOD SPECIMENOrdering Facility: [facility] Address: [address] [place] [address] Performed By: #### 2 4344-4 ####[facility]ORATORYCLIA [id number] [address] [place] Oxygen (BldV) [Partial pressure] 64 mm[Hg] High 35-45 [facility] Comment on above: Order Comment: Speci men Type: VENOUS BLOOD SPECIMENOrdering Facility: [facility] Address: [address] [address] Performed By: #### 2 4344-4 ####[facility]ORATORYCLIA [id number] [address] [place] Oxygen saturation in Blood 90 % High 60-85 [facility] Comment on above: Order Comment: Speci men Type: VENOUS BLOOD SPECIMENOrdering Facility: [facility] Address: [address] [place] [address] Performed By: #### 2 4344-4 ####[facility]ATORYCLIA [id number] [address] [place] Oxyhemoglobin (BldV) [Mass fraction] 87 % High 60-85 [facility] Comment on above: Order Comment: Speci men Type: VENOUS BLOOD SPECIMENOrdering Facility: [facility] Address: [address] [place] [address] Performed By: #### 2 4344-4 ####[facility]ORATORYCLIA [id number] [place] [address] [place] pH (BldV) 7.38 [pH] Normal 7.32-7.42 [facility] Comment on above: Order Comment: Speci men Type: VENOUS BLOOD SPECIMENOrdering Facility: [facility] Address: [address] [place] [address] Performed By: #### 2 4344-4 ####[facility]ORATORYCLIA [id number] [place] [address] [place] Potassium [Moles/Vol] 3.8 mmol/L Normal 3.5-5.0 [facility] Comment on above: Order Comment: Speci men Type: VENOUS BLOOD SPECIMENOrdering Facility: [facility] Address: [address] [place] [address] Performed By: #### 2 4344-4 ####[facility]ATORYCLIA [id number] [place] [address] [place] Sodium [Moles/Vol] 145 mmol/L High 136-144 [facility] Comment on above: Order Comment: Speci men Type: VENOUS BLOOD SPECIMENOrdering Facility: [facility] Address: [address] [place] [address] Performed By: #### 2 4344-4 ####[facility]ATORYCLIA [id number] [place] [address] [place] Base excess Calc (BldV) [Moles/Vol] 8 mmol/L High 0-2 [facility] Comment on above: Order Comment: Speci men Type: VENOUS BLOOD SPECIMENOrdering Facility: [facility] Address: [address] [place] [address] Performed By: #### 2 4344-4 ####[facility]ORATORYCLIA [id number] [address] [place] Body temperature 100.22 [degF] Normal [facility] Comment on above: Order Comment: Speci men Type: VENOUS BLOOD SPECIMENOrdering Facility: [facility] Address: [address] [place] [address] Performed By: #### 2 4344-4 ####[facility]ORATORYCLIA [id number] [place] [address] [place] CALCIUM IONIZED, PH CORRECTED 1.25 mmol/L Normal 1.08-1.30 [facility] Comment on above: Order Comment: Speci men Type: VENOUS BLOOD SPECIMENOrdering Facility: [facility] Address: [address] [place] [address] Performed By: #### 2 4344-4 ####[facility]ATORYCLIA [id number] [address] [place] Calcium.ionized (BldV) [Mass/Vol] 1.24 mmol/L Normal 1.08-1.30 [facility] Comment on above: Order Comment: Speci men Type: VENOUS BLOOD SPECIMENOrdering Facility: [facility] Address: [address] [place] [address] Performed By: #### 2 4344-4 ####[facility] LABORATORYCLIA [id number] [address] [place] Carboxyhemoglobin (BldV) [Mass fraction] 2.5 % High 0.0-2.0 [facility] Comment on above: Order Comment: Speci men Type: VENOUS BLOOD SPECIMENOrdering Facility: [facility] Address: [address] [place] [address] Result Comment: Carb oxyhemoglobin Reference Range for Smokers: 2.0-8.0% Performed By: #### 2 4344-4 ####[facility] LABORATORYCLIA [id number] [address] [place] CO2 (BldV) [Partial pressure] 53 mm[Hg] Normal 42-55 [facility] Comment on above: Order Comment: Speci men Type: VENOUS BLOOD SPECIMENOrdering Facility: [facility] Address: [address] [place] [address] Performed By: #### 2 4344-4 ####[facility]ATORYCLIA [id number] [address] [place] CO2 [Moles/Vol] 31 mmol/L High 25-29 [facility] Comment on above: Order Comment: Speci men Type: VENOUS BLOOD SPECIMENOrdering Facility: [facility] Address: [address] [place] [address] Performed By: #### 2 4344-4 ####[facility]ATORYCLIA [id number] [address] [place] CO2 adjusted to patient's actual temperature (BldV) [Partial pressure] 56 mmHg High 42-55 [facility] Comment on above: Order Comment: Speci men Type: VENOUS BLOOD SPECIMENOrdering Facility: [facility] Address: [address] [place] [address] Performed By: #### 2 4344-4 ####[facility]ATORYCLIA [id number] [address] [place] Glucose [Mass/Vol] 131 mg/dL High 60-105 [facility] Comment on above: Order Comment: Speci men Type: VENOUS BLOOD SPECIMENOrdering Facility: [facility] Address: [address] [address] Performed By: #### 2 4344-4 ####[facility]ORATORYCLIA [id number] [address] HCO3 (Bld) [Moles/Vol] 33 mmol/L High 24-28 [facility] Comment on above: Order Comment: Speci men Type: VENOUS BLOOD SPECIMENOrdering Facility: [facility] Address: [address] [address] Performed By: #### 2 4344-4 ####[facility]ORATORYCLIA [id number] [address] Hematocrit (Bld) [Volume fraction] 30.8 % Low 39.0-51.0 [facility] Comment on above: Order Comment: Speci men Type: VENOUS BLOOD SPECIMENOrdering Facility: [facility] Address: [address] [address] Performed By: #### 2 4344-4 ####[facility]ATORYCLIA [id number] [address] Hemoglobin (Bld) [Mass/Vol] 10.0 g/dL Low 13.0-17.0 [facility] Comment on above: Order Comment: Speci men Type: VENOUS BLOOD SPECIMENOrdering Facility: [facility] Address: [address] [address] Performed By: #### 2 4344-4 ####[facility]ATORYCLIA [id number] [address] Methemoglobin (Bld) [Mass fraction] % Normal 0.0-1.5 [facility] Comment on above: Order Comment: Speci men Type: VENOUS BLOOD SPECIMENOrdering Facility: [facility] Address: [address] [address] Performed By: #### 2 4344-4 ####[facility]ATORYCLIA [id number] [address] O2 THERAPY NC = Nasal Cannula Normal [facility] Comment on above: Order Comment: Speci men Type: VENOUS BLOOD SPECIMENOrdering Facility: [facility] Address: [address] [address] Performed By: #### 2 4344-4 ####[facility]ORATORYCLIA [id number] [address] [place] Oxygen (BldV) [Partial pressure] 58 mm[Hg] High 35-45 [facility] Comment on above: Order Comment: Speci men Type: VENOUS BLOOD SPECIMENOrdering Facility: [facility] Address: [address] [place] [address] Performed By: #### 2 4344-4 ####[facility]ATORYCLIA [id number] [address] [place] Oxygen adjusted to patient's actual temperature (BldV) [Partial pressure] 61 mmHg High 35-45 [facility] Comment on above: Order Comment: Speci men Type: VENOUS BLOOD SPECIMENOrdering Facility: [facility] Address: [address] [place] [address] Performed By: #### 2 4344-4 ####[facility]ORYCLIA [id number] [address] [place] Oxygen saturation in Blood 88 % High 60-85 [facility] Comment on above: Order Comment: Speci men Type: VENOUS BLOOD SPECIMENOrdering Facility: [facility] Address: [address] [address] Performed By: #### 2 4344-4 ####[facility]ATORYCLIA [id number] [address] [place] Oxyhemoglobin (BldV) [Mass fraction] 85 % Normal 60-85 [facility] Comment on above: Order Comment: Speci men Type: VENOUS BLOOD SPECIMENOrdering Facility: [facility] Address: [address] [address] Performed By: #### 2 4344-4 ####[facility]ATORYCLIA [id number] [address] [place] pH (BldV) 7.41 [pH] Normal 7.32-7.42 [facility] Comment on above: Order Comment: Speci men Type: VENOUS BLOOD SPECIMENOrdering Facility: [facility] Address: [address] [place] [address] Performed By: #### 2 4344-4 ####[facility]ORYCLIA [id number] [address] [place] pH adjusted to patient's actual temperature (BldV) 7.40 Normal 7.32-7.42 [facility] Comment on above: Order Comment: Speci men Type: VENOUS BLOOD SPECIMENOrdering Facility: [facility] Address: [address] [place] [address] Performed By: #### 2 4344-4 ####[facility]ORYCLIA [id number] [address] [place] Potassium [Moles/Vol] 4.0 mmol/L Normal 3.5-5.0 [facility] Comment on above: Order Comment: Speci men Type: VENOUS BLOOD SPECIMENOrdering Facility: [facility] Address: [address] [place] [address] Performed By: #### 2 4344-4 ####[facility]ATORYCLIA [id number] [address] [place] Sodium [Moles/Vol] 146 mmol/L High 136-144 [facility] Comment on above: Order Comment: Speci men Type: VENOUS BLOOD SPECIMENOrdering Facility: [facility] Address: [address] [place] [address] Performed By: #### 2 4344-4 ####[facility] LABORATORYCLIA [id number] [place] [address] [place] Magnesium SerPl-mCncon 07-21 Magnesium [Mass/Vol] 2.5 mg/dL High 1.7-2.3 [facility] Comment on above: Order Comment: Speci men Type: BLOOD SPECIMENOrdering Facility: [facility] Address: [address] [place] [address] [place] [address] Performed By: #### 1 9123-9, 2777-1, 47105-1 ####[facility]ORATORYCLIA [id number] [address] [facility] 07-21-2021 NURSING PROG Normal [facility] Phosphate SerPl-mCncon 07-21 Phosphate [Mass/Vol] 3.7 mg/dL Normal 2.7-4.8 [facility] Comment on above: Order Comment: Speci men Type: BLOOD SPECIMENOrdering Facility: [facility] Address: [address] [place] [address] Performed By: #### 1 9123-9, 2777-, 39851-3 ####[facility]ORATORYCLIA [id number] [address] THERAPY NTon 07-21-2021 THERAPY NT Normal [facility] XR CHEST 1V FRONTALon 2021 XR CHEST 1V FRONTAL Normal [facility] aPTT PPPon 07-21-2021 aPTT Coag (PPP) [Time] 53.0 s High 23.0-32.4 [facility] Comment on above: Order Comment: Speci men Type: BLOOD SPECIMENOrdering Facility: [facility] Address: [address] [place] [address] Performed By: #### 1 4979-9 ####[facility]ORYCLIA [id number] [address] [place] ALLIED HEALTHon 07-20-2021 ALLIED HEALTH Normal [facility] Basic metabolic 2000 panelon 07-20-2021 Anion gap [Moles/Vol] 8 mmol/L Low 9-18 [facility] Comment on above: Order Comment: Speci men Type: BLOOD SPECIMENOrdering Facility: [facility] Address: [address] [place] [address] [place] [address] Performed By: #### 2 4321-2, 37527-0, 2776-05 ####[facility]ORATORYCLIA [id number] [place] [address] [place] Calcium [Mass/Vol] 9.7 mg/dL Normal 8.5-10.2 [facility] Comment on above: Order Comment: Speci men Type: BLOOD SPECIMENOrdering Facility: [facility] Address: [address] [place] [address] Performed By: #### 2 4321-2, , 2776-05 ####[facility]ORATORYCLIA [id number] [place] [address] [place] Chloride [Moles/Vol] 104 mmol/L Normal 97-105 [facility] Comment on above: Order Comment: Speci men Type: BLOOD SPECIMENOrdering Facility: [facility] Address: [address] [place] [address] Performed By: #### 2 4320-2, , 2776-05 ####[facility]ATORYCLIA [id number] [place] [address] [place] CO2 [Moles/Vol] 34 mmol/L High 22-30 [facility] Comment on above: Order Comment: Speci men Type: BLOOD SPECIMENOrdering Facility: [facility] Address: [address] [place] [address] Performed By: #### 2 1-2, , 2776-05 ####[facility]ATORYCLIA [id number] [place] [address] [place] Creatinine [Mass/Vol] 0.76 mg/dL Normal 0.73-1.22 [facility] Comment on above: Order Comment: Speci men Type: BLOOD SPECIMENOrdering Facility: [facility] Address: [address] [place] [address] Performed By: #### 2 4321-2, , 2776-05 ####[facility]ATORYCLIA [id number] [address] [place] ESTIMATED GLOMERULAR FILTRATION RATE 97 mL/min/1.73m??? Normal >=60 [facility] Comment on above: Order Comment: Shira feldman Type: BLOOD SPECIMENOrdering Facility: [facility] Address: [address] [place] [address] Result Comment: Luzmaria mated Glomerular Filtration Rate [...] actual GFR. Performed By: #### 2 4321-2, 56294-1, 2777-1 ####[facility]OSPITALCLIA [id number] [place] [address] [place] Glucose [Mass/Vol] 123 mg/dL High 74-99 [facility] Comment on above: Order Comment: Shira feldman Type: BLOOD SPECIMENOrdering Facility: [facility] Address: [address] [place] [address] Result Comment: The [place] Diabetes Association (ADA) provides guidance for cutoff [...] Standards of Medical Care in Diabetes 2016, [place] [employer]. Diabetes Care. 2016.39(Suppl 1). Performed By: #### 2 4321-2, 73875-2, 2776- ####[facility]ATORYCLIA [id number] [place] [id number] [place] Potassium [Moles/Vol] 4.4 mmol/L Normal 3.7-5.1 [facility] Comment on above: Order Comment: Shira [facility] Type: BLOOD SPECIMENOrdering Facility: [facility] Address: [address] [place], [place] [address] Performed By: #### 2 4321-2, 19453-9, 1 ####[facility]ATORYCLIA [id number] [address] [place] Sodium [Moles/Vol] 146 mmol/L High 136-144 [facility] Comment on above: Order Comment: Speci men Type: BLOOD SPECIMENOrdering Facility: [facility] Address: [address] [place] [address] Performed By: #### 2 4321-2, , 27711-04 ####[facility]ORYCLIA [id number] [address] [place] Urea nitrogen [Mass/Vol] 38 mg/dL High 9-24 [facility] Comment on above: Order Comment: Speci men Type: BLOOD SPECIMENOrdering Facility: [facility] Address: [address] [place] [address] Performed By: #### 2 4321-2, , 27711-04 ####[facility]ATORYCLIA [id number] [address] [place] CASE MANAGEMon 07-20-2021 CASE MANAGEM Normal [facility] CBC W Auto Differential pane l (Bld)on 07-20-2021 Basophils (Bld) [#/Vol] 0.05 10*3/uL Normal <0.11 [facility] Comment on above: Order Comment: Speci men Type: BLOOD SPECIMENOrdering Facility: [facility] Address: [address] [place] [address] Performed By: #### 5 7021-8 ####[facility]ATORYCLIA [id number] [address] [place] Basophils/100 WBC (Bld) 0.5 % Normal [facility] Comment on above: Order Comment: Speci men Type: BLOOD SPECIMENOrdering Facility: [facility] Address: [address] [place] [address] Performed By: #### 5 7021-8 ####[facility]ATORYCLIA [id number] [address] Differential cell count method Nom (Bld) Auto Normal [facility] Comment on above: Order Comment: Speci men Type: BLOOD SPECIMENOrdering Facility: [facility] Address: [address] [place] [address] Performed By: #### 5 7021-8 ####[facility]ATORYCLIA [id number] [address] Eosinophils (Bld) [#/Vol] 0.43 10*3/uL Normal <0.46 [facility] Comment on above: Order Comment: Speci men Type: BLOOD SPECIMENOrdering Facility: [facility] Address: [address] [place] [address] Performed By: #### 5 7021-8 ####[facility]ATORYCLIA [id number] [address] Eosinophils/100 WBC (Bld) 4.1 % Normal [facility] Comment on above: Order Comment: Speci men Type: BLOOD SPECIMENOrdering Facility: [facility] Address: [address] [place] [address] Performed By: #### 5 7021-8 ####[facility]ATORYCLIA [id number] [address] Erythrocyte distribution width (RBC) [Ratio] 16.7 % High 11.5-15.0 [facility] Comment on above: Order Comment: Speci men Type: BLOOD SPECIMENOrdering Facility: [facility] Address: [address] [place] [address] Performed By: #### 5 7021-8 ####[facility]ATORYCLIA [id number] [address] Hematocrit (Bld) [Volume fraction] 33.0 % Low 39.0-51.0 [facility] Comment on above: Order Comment: Speci men Type: BLOOD SPECIMENOrdering Facility: [facility] Address: [address] [place] [address] Performed By: #### 5 7021-8 ####[facility]ORYCLIA [id number] [address] Hemoglobin (Bld) [Mass/Vol] 9.7 g/dL Low 13.0-17.0 [facility] Comment on above: Order Comment: Speci men Type: BLOOD SPECIMENOrdering Facility: [facility] Address: [address] [place] [address] Performed By: #### 5 7021-8 ####[facility]ATORYCLIA [id number] [address] IMMATURE GRAN % 0.4 % Normal [facility] Comment on above: Order Comment: Speci men Type: BLOOD SPECIMENOrdering Facility: [facility] Address: [address] [place] [address] Performed By: #### 5 7021-8 ####[facility]ORYCLIA [id number] [address] IMMATURE GRAN ABS 0.04 k/uL Normal <0.10 [facility] Comment on above: Order Comment: Speci men Type: BLOOD SPECIMENOrdering Facility: [facility] Address: [address] [place] [address] Performed By: #### 5 7021-8 ####[facility]ORYCLIA [id number] [address] Lymphocytes (Bld) [#/Vol] 1.99 10*3/uL Normal 1.00-4.00 [facility] Comment on above: Order Comment: Speci men Type: BLOOD SPECIMENOrdering Facility: [facility] Address: [address] [place] [address] Performed By: #### 5 7021-8 ####[facility]ORYCLIA [id number] [address] Lymphocytes/100 WBC (Bld) 18.8 % Normal [facility] Comment on above: Order Comment: Speci men Type: BLOOD SPECIMENOrdering Facility: [facility] Address: [address] [place] [address] Performed By: #### 5 7021-8 ####[facility]ATORYCLIA [id number] [address] MCH (RBC) [Entitic mass] 27.8 pg Normal 26.0-34.0 [facility] Comment on above: Order Comment: Speci men Type: BLOOD SPECIMENOrdering Facility: [facility] Address: [address] [place] [address] Performed By: #### 5 7021-8 ####[facility]ATORYCLIA [id number] [address] MCHC (RBC) [Mass/Vol] 29.4 g/dL Low 30.5-36.0 [facility] Comment on above: Order Comment: Speci men Type: BLOOD SPECIMENOrdering Facility: [facility] Address: [address] [place] [address] Performed By: #### 5 7021-8 ####[facility]ATORYCLIA [id number] [address] MCV (RBC) [Entitic vol] 94.6 fL Normal 80.0-100.0 [facility] Comment on above: Order Comment: Speci men Type: BLOOD SPECIMENOrdering Facility: [facility] Address: [address] [place] [address] Performed By: #### 5 7021-8 ####[facility]ORYCLIA [id number] [address] Monocytes (Bld) [#/Vol] 0.82 10*3/uL Normal <0.87 [facility] Comment on above: Order Comment: Speci men Type: BLOOD SPECIMENOrdering Facility: [facility] Address: [address] [place] [address] Performed By: #### 5 7021-8 ####[facility]ATORYCLIA [id number] [address] [place] Monocytes/100 WBC (Bld) 7.8 % Normal [facility] Comment on above: Order Comment: Speci men Type: BLOOD SPECIMENOrdering Facility: [facility] Address: [address] [place] [address] Performed By: #### 5 7021-8 ####[facility]ORYCLIA [id number] [address] [place] Neutrophils (Bld) [#/Vol] 7.23 10*3/uL Normal 1.45-7.50 [facility] Comment on above: Order Comment: Speci men Type: BLOOD SPECIMENOrdering Facility: [facility] Address: [address] [place] [address] Performed By: #### 5 7021-8 ####[facility]ORYCLIA [id number] [address] Neutrophils/100 WBC (Bld) 68.4 % Normal [facility] Comment on above: Order Comment: Speci men Type: BLOOD SPECIMENOrdering Facility: [facility] Address: [address] [place] [address] Performed By: #### 5 7021-8 ####[facility]ORYCLIA [id number] [address] [place] Nucleated RBC (Bld) [#/Vol] 10*3/uL Normal <0.01 [facility] Comment on above: Order Comment: Speci men Type: BLOOD SPECIMENOrdering Facility: [facility] Address: [address] [place] [address] Performed By: #### 5 7021-8 ####[facility]ORYCLIA [id number] [address] Nucleated RBC/100 WBC (Bld) [Ratio] 0.0 /100 WBC Normal [facility] Comment on above: Order Comment: Speci men Type: BLOOD SPECIMENOrdering Facility: [facility] Address: [address] [place] [address] Performed By: #### 5 7021-8 ####[facility]ORYCLIA [id number] [address] Platelet mean volume (Bld) [Entitic vol] 10.5 fL Normal 9.0-12.7 [facility] Comment on above: Order Comment: Speci men Type: BLOOD SPECIMENOrdering Facility: [facility] Address: [address] [place] [address] Performed By: #### 5 7021-8 ####[facility]ORYCLIA [id number] [address] [place] Platelets (Bld) [#/Vol] 400 10*3/uL Normal 150-400 [facility] Comment on above: Order Comment: Speci men Type: BLOOD SPECIMENOrdering Facility: [facility] Address: [address] [place] [address] Performed By: #### 5 7021-8 ####[facility]ATORYCLIA [id number] [address] [place] RBC (Bld) [#/Vol] 3.49 10*6/uL Low 4.20-6.00 [facility] Comment on above: Order Comment: Speci men Type: BLOOD SPECIMENOrdering Facility: [facility] Address: [address] [place] [address] Performed By: #### 5 7021-8 ####[facility]ATORYCLIA [id number] [address] [place] WBC (Bld) [#/Vol] 10.56 10*3/uL Normal 3.70-11.00 [facility] Comment on above: Order Comment: Speci men Type: BLOOD SPECIMENOrdering Facility: [facility] Address: [address] [place] [address] Performed By: #### 5 7021-8 ####[facility]ATORYCLIA [id number] [address] CONSULT PROGon 03-16-2022 CONSULT PROG Normal [facility] CT BRAIN WO IVCONon 07-21-[address] BRAIN WO IVCON Normal [facility] Magnesium SerPl-mCncon 07-20 Magnesium [Mass/Vol] 2.4 mg/dL High 1.7-2.3 [facility] Comment on above: Order Comment: Speci men Type: BLOOD SPECIMENOrdering Facility: [facility] Address: [address] [place] [address] Performed By: #### 2 4321-2, , 2777- ####[facility]ATORYCLIA [id number] [address] [facility] NUTRITIONon 07-20-2021 NUTRITION Normal [facility] Phosphate SerPl-mCncon 07-20 Phosphate [Mass/Vol] 4.1 mg/dL Normal 2.7-4.8 [facility] Comment on above: Order Comment: Speci men Type: BLOOD SPECIMENOrdering Facility: [facility] Address: [address] [place] [address] Performed By: #### 2 4321-2, , 2777 ####[facility]ATORYCLIA [id number] [address] [place] aPTT PPPon 07-20-2021 aPTT Coag (PPP) [Time] 53.6 s High 23.0-32.4 [facility] Comment on above: Order Comment: Speci men Type: BLOOD SPECIMENOrdering Facility: [facility] Address: [address] [place] [address] Performed By: #### 1 4979-9 ####[facility]ATORYCLIA [id number] [address] [place] Bacteria CSF Culton 07-20-19 22 Bacteria identified Cx Nom (CSF) CULTURE, CSF: No growth 14 days GRAM STAIN: No organisms seen No Polymorphonuclear Leukocytes Rare Mononuclear cells Gram stain performed on cytospun specimen. Normal [facility] Comment on above: Performed By: #### 6 06-4 ####[facility]ORYCLIA [id number] [place] [address] [place] CONSULT PROGon 07-19-2021 CONSULT PROG Normal [facility] CSF MANUAL DIFFon 07-19-2021 DIF TTL, CSF 100 cells counted Normal [facility] Comment on above: Order Comment: Speci men Type: CEREBROSPINAL FLUIDOrdering Facility: [facility] Address: [address] [place] [address] Performed By: #### L [id number], 72691-4, [id number] ####[facility]ORYCLIA [id number] [address] [place] EOSIN%, CSF 1 % Normal [facility] Comment on above: Order Comment: Speci men Type: CEREBROSPINAL FLUIDOrdering Facility: [facility] Address: [address] [place] [address] Performed By: #### L [id number], 35913-3, [id number] ####[facility]ORYCLIA [id number] [place] [address] [place] LYMPH%, CSF 67 % Normal 50-90 [facility] Comment on above: Order Comment: Speci men Type: CEREBROSPINAL FLUIDOrdering Facility: [facility] Address: [address] [place] [address] Performed By: #### L [id number], 27038-2, [id number] ####[facility]ORYCLIA [id number] [place] [address] [place] MACRO%, CSF 1 % High <1 [facility] Comment on above: Order Comment: Speci men Type: CEREBROSPINAL FLUIDOrdering Facility: [facility] Address: [address] [place] [address] Performed By: #### L [id number], 43067-9, [id number] ####[facility]ATORYCLIA [id number] [place] [address] [place] MONO%, CSF 18 % Normal 10-50 [facility] Comment on above: Order Comment: Speci men Type: CEREBROSPINAL FLUIDOrdering Facility: [facility] Address: [address] [place] [address] Performed By: #### L AH9715, 84857-4, [id number] ####[facility]ORYCLIA [id number] [address] [place] NEUT%, CSF 11 % High 0-3 [facility] Comment on above: Order Comment: Speci men Type: CEREBROSPINAL FLUIDOrdering Facility: [facility] Address: [address] [place] [address] Performed By: #### L [id number], 68995-4, [id number] ####[facility]ATORYCLIA [id number] [address] OTHER CL%, CSF 2 % Normal [facility] Comment on above: Order Comment: Speci men Type: CEREBROSPINAL FLUIDOrdering Facility: [facility] Address: [address] [place] [address] Result Comment: Path review to follow. Performed By: #### L [id number], 20008-2, [id number] ####[facility]ATORYCLIA [id number] [address] CSF PATHOLOGIST INTERP (LAB REFLEX ORDER-NO BILL)on 07-19-2021 CSF STAFF REVIEW Normal [facility] Comment on above: Order Comment: Speci men Type: CEREBROSPINAL FLUIDOrdering Facility: [facility] Address: [address] [place] [address] Performed By: #### L [id number], 18095-3, BOD3265 ####[facility]ORYCLIA [id number] [address] Pathologist name Reviewed by Wing Cummings MD [facility] Comment on above: Order Comment: Speci men Type: CEREBROSPINAL FLUIDOrdering Facility: [facility] Address: [address] [place] [address] Performed By: #### L [id number], 39203-7, [id number] ####[facility]ATORYCLIA [id number] [address] Cell count panel (CSF)on Clarity (CSF) Clear Normal Clear [facility] Comment on above: Order Comment: Speci men Type: CEREBROSPINAL FLUIDOrdering Facility: [facility] Address: [address] [place] [address] Performed By: #### L [id number], 65911-6, [id number] ####[facility]ORYCLIA [id number] [address] Clarity (Unsp spec) Not Indicated Normal Clear [facility] Comment on above: Order Comment: Speci men Type: CEREBROSPINAL FLUIDOrdering Facility: [facility] Address: [address] [place] [address] Performed By: #### L [id number], 89874-7, [id number] ####[facility]ORYCLIA [id number] [address] Color (CSF) Colorless Normal Colorless [facility] Comment on above: Order Comment: Speci men Type: CEREBROSPINAL FLUIDOrdering Facility: [facility] Address: [address] [place] [address] Performed By: #### L [id number], 82768-0, [id number] ####[facility]ORATORYCLIA [id number] [address] Color (Spun CSF) Not Indicated Normal Colorless [facility] Comment on above: Order Comment: Speci men Type: CEREBROSPINAL FLUIDOrdering Facility: [facility] Address: [address] [place] [address] Performed By: #### L [id number], 83994-6, [id number] ####[facility]ORYCLIA [id number] [address] CSF TUBE [employer]BER [employer] Normal [facility] Comment on above: Order Comment: Speci men Type: CEREBROSPINAL FLUIDOrdering Facility: [facility] Address: [address] [place] [address] Performed By: #### L [id number], 44584-1, [id number] ####[facility]ATORYCLIA [id number] [address] [facility] RBC Manual cnt (CSF) [#/Vol] 0 cells/uL Normal 0-5 [facility] Comment on above: Order Comment: Speci men Type: CEREBROSPINAL FLUIDOrdering Facility: [facility] Address: [address] [place] [address] Performed By: #### L [id number], 69721-2, [id number] ####[facility]ATORYCLIA [id number] [address] WBC Manual cnt (CSF) [#/Vol] 2 cells/uL Normal 0-5 [facility] Comment on above: Order Comment: Speci men Type: CEREBROSPINAL FLUIDOrdering Facility: [facility] Address: [address] [place] [address] Performed By: #### L [id number], 88763-6, [id number] ####[facility]ATORYCLIA [id number] [address] [place] Glucose CSF-ncon 2 Glucose (CSF) [Mass/Vol] 69 mg/dL Normal 40-70 [facility] Comment on above: Order Comment: Speci men Type: CEREBROSPINAL FLUIDOrdering Facility: [facility] Address: [address] [place] [address] Result Comment: Lumb ar CSF glucose values of healthy patients are approximately 60% of the plasma values and must always be compared with a concurrently measured plasma value for adequate clinical interpretation.References: 1. Glucose HK (GLUC3) [package insert V 12.0 French]. [employer], [place], [place]. September 2015. 2. Michelle Moore, Loki, H. (2015). Chapter 7: Glucose and Lactate. Marianela Rothman.(eds.), Cerebrospinal Fluid in Clinical Neurology. [place]: [employer]. Performed By: #### 2 342-4, 2880-3 ####[facility]ATORYCLIA [id number] [address] [place] NURSING PROGon 07-19-2021 NURSING PROG Normal [facility] NURSING PROG Normal [facility] Prot CSF-mCncon 07-19-2021 Protein (CSF) [Mass/Vol] 51 mg/dL High [facility] Comment on above: Order Comment: Speci men Type: CEREBROSPINAL FLUIDOrdering Facility: [facility] Address: [address] [place] [address] Performed By: #### 2 342-4, 2880-3 ####[facility]ATORYCLIA [id number] [address] THERAPY NTon 07-19-2021 THERAPY NT Normal [facility] Urinalysis complete panel (U )on 07-19-2021 Bilirubin Ql (U) Negative Normal Negative [facility] Comment on above: Order Comment: Speci men Type: URINE SPECIMENOrdering Facility: [facility] Address: [address] [place] [address] Performed By: #### 2 4356-8 ####[facility]ORYCLIA [id number] [address] Clarity (Unsp spec) Clear Normal Clear [facility] Comment on above: Order Comment: Speci men Type: URINE SPECIMENOrdering Facility: [facility] Address: [address] [place] [address] Performed By: #### 2 4356-8 ####[facility]ATORYCLIA [id number] [address] [place] Color (U) Colorless Normal yellow [facility] Comment on above: Order Comment: Speci men Type: URINE SPECIMENOrdering Facility: [facility] Address: [address] [place] [address] Performed By: #### 2 4356-8 ####[facility]IST [facility]ORATORYCLIA [id number] [address] [place] Glucose Test strip (U) [Mass/Vol] Negative Normal Negative [facility] Comment on above: Order Comment: Speci men Type: URINE SPECIMENOrdering Facility: [facility] Address: [address] [place] [address] Performed By: #### 2 4356-8 ####[facility]ORATORYCLIA [id number] [address] STATES [facility] Hemoglobin Ql (U) Trace Abnormal Negative [facility] Comment on above: Order Comment: Speci men Type: URINE SPECIMENOrdering Facility: [facility] Address: [address] [place] [address] Performed By: #### 2 4356-8 ####[facility]ORATORYCLIA [id number] [address] Hyaline casts (Urine sed) [#/Area] 1-3 /LPF Abnormal 0 /LPF [facility] Comment on above: Order Comment: Speci men Type: URINE SPECIMENOrdering Facility: [facility] Address: [address] [place] [address] Performed By: #### 2 4356-8 ####[facility]ORATORYCLIA [id number] [address] [place] [facility] Ketones Ql (U) Negative Normal Negative [facility] Comment on above: Order Comment: Speci men Type: URINE SPECIMENOrdering Facility: [facility] Address: [address] [place] [address] Performed By: #### 2 4356-8 ####[facility]ATORYCLIA [id number] [address] Leukocyte esterase Test strip Ql (U) Negative Normal Negative [facility] Comment on above: Order Comment: Speci men Type: URINE SPECIMENOrdering Facility: [facility] Address: [address] [place] [address] Performed By: #### 2 4356-8 ####[facility]ATORYCLIA [id number] [address] [place] Nitrite Ql (U) Negative Normal Negative [facility] Comment on above: Order Comment: Speci men Type: URINE SPECIMENOrdering Facility: [facility] Address: [address] [place] [address] Performed By: #### 2 4356-8 ####[facility]ATORYCLIA [id number] [address] pH (U) 7.0 [pH] Normal 5.0-8.0 [facility] Comment on above: Order Comment: Speci men Type: URINE SPECIMENOrdering Facility: [facility] Address: [address] [place] [address] Performed By: #### 2 4356-8 ####[facility]ATORYCLIA [id number] [address] STATES [facility] Protein (U) [Mass/Vol] Negative Normal Negative [facility] Comment on above: Order Comment: Speci men Type: URINE SPECIMENOrdering Facility: [facility] Address: [address] [place] [address] Performed By: #### 2 4356-8 ####[facility]ATORYCLIA [id number] [address] [place] [facility] RBC LM.HPF (Urine sed) [#/Area] 6-10 /HPF Abnormal 0-3 /HPF [facility] Comment on above: Order Comment: Speci men Type: URINE SPECIMENOrdering Facility: [facility] Address: [address] [place] [address] Performed By: #### 2 4356-8 ####[facility]ORATORYCLIA [id number] [address] [place] Specific gravity (U) [Rel density] 1.008 Normal 1.005-1.030 [facility] Comment on above: Order Comment: Speci men Type: URINE SPECIMENOrdering Facility: [facility] Address: [address] [place] [address] Performed By: #### 2 4356-8 ####[facility]ORATORYCLIA [id number] [address] [place] Urobilinogen Ql (U) Normal Normal Negative [facility] Comment on above: Order Comment: Speci men Type: URINE SPECIMENOrdering Facility: [facility] Address: [address] [place] [address] Performed By: #### 2 4356-8 ####[facility]ORATORYCLIA [id number] [address] [place] WBC LM.HPF (Urine sed) [#/Area] 0-5 /HPF Normal 0-5 /HPF [facility] Comment on above: Order Comment: Speci men Type: URINE SPECIMENOrdering Facility: [facility] Address: [address] [place] [address] Performed By: #### 2 4356-8 ####[facility]ORATORYCLIA [id number] [address] [place] Vancomycin random [Mass/Vol] on 07-19-2021 Vancomycin [Mass/Vol] 13.9 ug/mL Normal 10.0-20.0 [facility] Comment on above: Order Comment: Speci men Type: BLOOD SPECIMENOrdering Facility: [facility] Address: [address] [place] [address] Result Comment: Refe rence ranges and high/low indicator flags are provided as general guidelines only. The treating physician must determine appropriate target levels/dosing based on the specific clinical situation. Performed By: #### 4 091-5 ####[facility]ORATORYCLIA [id number] [address] STATES [facility] aPTT PPPon 07-19-2021 aPTT Coag (PPP) [Time] 53.9 s High 23.0-32.4 [facility] Comment on above: Order Comment: Speci men Type: BLOOD SPECIMENOrdering Facility: [facility] Address: [address] [place] [address] Performed By: #### 1 4979-9 ####[facility]ORATORYCLIA [id number] [place] [address] [place] Basic metabolic 2000 panelon 07-18-2021 Anion gap [Moles/Vol] 6 mmol/L Low 9-18 [facility] Comment on above: Order Comment: Speci men Type: BLOOD SPECIMENOrdering Facility: [facility] Address: [address] [place] [address] Performed By: #### 2 4321-2, , 2776-05 ####[facility]ORATORYCLIA [id number] [place] [address] [place] Calcium [Mass/Vol] 9.4 mg/dL Normal 8.5-10.2 [facility] Comment on above: Order Comment: Speci men Type: BLOOD SPECIMENOrdering Facility: [facility] Address: [address] [place] [address] Performed By: #### 2 4321-2, , 2776-05 ####[facility]ORATORYCLIA [id number] [place] [address] [place] Chloride [Moles/Vol] 103 mmol/L Normal 97-105 [facility] Comment on above: Order Comment: Speci men Type: BLOOD SPECIMENOrdering Facility: [facility] Address: [address] [place] [address] Performed By: #### 2 4321-2, , 2776-05 ####[facility]ATORYCLIA [id number] [place] [address] [place] CO2 [Moles/Vol] 34 mmol/L High 22-30 [facility] Comment on above: Order Comment: Speci men Type: BLOOD SPECIMENOrdering Facility: [facility] Address: [address] [place] [address] Performed By: #### 2 4321-2, , 2776-05 ####[facility]ORATORYCLIA [id number] [place] [address] [place] Creatinine [Mass/Vol] 0.75 mg/dL Normal 0.73-1.22 [facility] Comment on above: Order Comment: Speci men Type: BLOOD SPECIMENOrdering Facility: [facility] Address: [address] [place] [address] Performed By: #### 2 4321-2, , 2776-05 ####[facility]ORATORYCLIA [id number] [address] [place] ESTIMATED GLOMERULAR FILTRATION RATE 98 mL/min/1.73m??? Normal >=60 [facility] Comment on above: Order Comment: Shira feldman Type: BLOOD SPECIMENOrdering Facility: [facility] Address: [address] [place] [address] Result Comment: Luzmaria mated Glomerular Filtration Rate [...] Performed By: #### 2 4321-2, , 2776-05 ####[facility]ORATORYCLIA [id number] [place] [address] [place] Glucose [Mass/Vol] 125 mg/dL High 74-99 [facility] Comment on above: Order Comment: Shira feldman Type: BLOOD SPECIMENOrdering Facility: [facility] Address: [address] [place] [address] Result Comment: The [place] [employer] (ADA) provides guidance for cutoff [...] Standards of Medical Care in Diabetes 2016, [place] [employer]. Diabetes Care. 2016.39(Suppl 1). Performed By: #### 2 4321-2, , 2776-05 ####[facility]ORATORYCLIA [id number] [place] [address] [place] Potassium [Moles/Vol] 4.4 mmol/L Normal 3.7-5.1 [facility] Comment on above: Order Comment: Speci men Type: BLOOD SPECIMENOrdering Facility: [facility] Address: [address] [place] [address] Performed By: #### 2 4321-2, , 2776-05 ####[facility]ORATORYCLIA [id number] [place] [address] [place] Sodium [Moles/Vol] 143 mmol/L Normal 136-144 [facility] Comment on above: Order Comment: Speci men Type: BLOOD SPECIMENOrdering Facility: [facility] Address: [address] [place] [address] Performed By: #### 2 432-2, , 2776-05 ####[facility]ORATORYCLIA [id number] [address] [place] Urea nitrogen [Mass/Vol] 33 mg/dL High 9-24 [facility] Comment on above: Order Comment: Speci men Type: BLOOD SPECIMENOrdering Facility: [facility] Address: [address] [place] [address] Performed By: #### 2 4321-2, , 2776-05 ####[facility]ORATORYCLIA [id number] [address] [place] CASE MANAGEMon 07-18-2021 CASE MANAGEM Normal [facility] CBC W Auto Differential pane l (Bld)on 07-18-2021 Basophils (Bld) [#/Vol] 0.05 10*3/uL Normal <0.11 [facility] Comment on above: Order Comment: Speci men Type: BLOOD SPECIMENOrdering Facility: [facility] Address: [address] [place] [address] Performed By: #### 5 7021-8 ####[facility] H[facility]PITALCLIA [id number] [address] [place] Basophils/100 WBC (Bld) 0.5 % Normal [facility] Comment on above: Order Comment: Speci men Type: BLOOD SPECIMENOrdering Facility: [facility] Address: [address] [place] [address] Performed By: #### 5 7021-8 ####[facility]ORATORYCLIA [id number] [address] Differential cell count method Nom (Bld) Auto Normal [facility] Comment on above: Order Comment: Speci men Type: BLOOD SPECIMENOrdering Facility: [facility] Address: [address] [place] [address] Performed By: #### 5 7021-8 ####[facility]ORATORYCLIA [id number] [address] [place] Eosinophils (Bld) [#/Vol] 0.44 10*3/uL Normal <0.46 [facility] Comment on above: Order Comment: Speci men Type: BLOOD SPECIMENOrdering Facility: [facility] Address: [address] [place] [address] Performed By: #### 5 7021-8 ####[facility]ORATORYCLIA [id number] [address] Eosinophils/100 WBC (Bld) 4.3 % Normal [facility] Comment on above: Order Comment: Speci men Type: BLOOD SPECIMENOrdering Facility: [facility] Address: [address] [place] [address] Performed By: #### 5 7021-8 ####[facility]ORATORYCLIA [id number] [address] Erythrocyte distribution width (RBC) [Ratio] 16.6 % High 11.5-15.0 [facility] Comment on above: Order Comment: Speci men Type: BLOOD SPECIMENOrdering Facility: [facility] Address: [address] [place] [address] Performed By: #### 5 7021-8 ####[facility]ORATORYCLIA [id number] [address] Hematocrit (Bld) [Volume fraction] 32.2 % Low 39.0-51.0 [facility] Comment on above: Order Comment: Speci men Type: BLOOD SPECIMENOrdering Facility: [facility] Address: [address] [place] [address] Performed By: #### 5 7021-8 ####[facility]ORATORYCLIA [id number] [address] Hemoglobin (Bld) [Mass/Vol] 9.5 g/dL Low 13.0-17.0 [facility] Comment on above: Order Comment: Speci men Type: BLOOD SPECIMENOrdering Facility: [facility] Address: [address] [place] [address] Performed By: #### 5 7021-8 ####[facility]ORATORYCLIA [id number] [address] IMMATURE GRAN % 0.4 % Normal [facility] Comment on above: Order Comment: Speci men Type: BLOOD SPECIMENOrdering Facility: [facility] Address: [address] [place] [address] Performed By: #### 5 7021-8 ####[facility]ATORYCLIA [id number] [address] IMMATURE GRAN ABS 0.04 k/uL Normal <0.10 [facility] Comment on above: Order Comment: Speci men Type: BLOOD SPECIMENOrdering Facility: [facility] Address: [address] [place] [address] Performed By: #### 5 7021-8 ####[facility]ORATORYCLIA [id number] [address] Lymphocytes (Bld) [#/Vol] 1.71 10*3/uL Normal 1.00-4.00 [facility] Comment on above: Order Comment: Speci men Type: BLOOD SPECIMENOrdering Facility: [facility] Address: [address] [place] [address] Performed By: #### 5 7021-8 ####[facility]ORATORYCLIA [id number] [address] Lymphocytes/100 WBC (Bld) 16.9 % Normal [facility] Comment on above: Order Comment: Speci men Type: BLOOD SPECIMENOrdering Facility: [facility] Address: [address] [place] [address] Performed By: #### 5 7021-8 ####[facility]ORATORYCLIA [id number] [address] MCH (RBC) [Entitic mass] 27.9 pg Normal 26.0-34.0 [facility] Comment on above: Order Comment: Speci men Type: BLOOD SPECIMENOrdering Facility: [facility] Address: [address] [place] [address] Performed By: #### 5 7021-8 ####[facility]ORATORYCLIA [id number] [address] STATES [facility] MCHC (RBC) [Mass/Vol] 29.5 g/dL Low 30.5-36.0 [facility] Comment on above: Order Comment: Speci men Type: BLOOD SPECIMENOrdering Facility: [facility] Address: [address] [place] [address] Performed By: #### 5 7021-8 ####[facility]ORATORYCLIA [id number] [address] STATES [facility] MCV (RBC) [Entitic vol] 94.7 fL Normal 80.0-100.0 [facility] Comment on above: Order Comment: Speci men Type: BLOOD SPECIMENOrdering Facility: [facility] Address: [address] [place] [address] Performed By: #### 5 7021-8 ####[facility]ORATORYCLIA [id number] [place] [address] [place] Monocytes (Bld) [#/Vol] 0.69 10*3/uL Normal <0.87 [facility] Comment on above: Order Comment: Speci men Type: BLOOD SPECIMENOrdering Facility: [facility] Address: [address] [place] [address] Performed By: #### 5 7021-8 ####[facility]ORATORYCLIA [id number] [address] [place] Monocytes/100 WBC (Bld) 6.8 % Normal [facility] Comment on above: Order Comment: Speci men Type: BLOOD SPECIMENOrdering Facility: [facility] Address: [address] [place] [address] Performed By: #### 5 7021-8 ####[facility]ORATORYCLIA [id number] [address] [place] Neutrophils (Bld) [#/Vol] 7.19 10*3/uL Normal 1.45-7.50 [facility] Comment on above: Order Comment: Speci men Type: BLOOD SPECIMENOrdering Facility: [facility] Address: [address] [place] [address] Performed By: #### 5 7021-8 ####[facility]ORATORYCLIA [id number] [address] [place] Neutrophils/100 WBC (Bld) 71.1 % Normal [facility] Comment on above: Order Comment: Speci men Type: BLOOD SPECIMENOrdering Facility: [facility] Address: [address] [address] Performed By: #### 5 7021-8 ####[facility]ORYCLIA [id number] [place] [address] [place] Nucleated RBC (Bld) [#/Vol] 10*3/uL Normal <0.01 [facility] Comment on above: Order Comment: Speci men Type: BLOOD SPECIMENOrdering Facility: [facility] Address: [address] [place] [address] Performed By: #### 5 7021-8 ####[facility]ORATORYCLIA [id number] [address] [place] Nucleated RBC/100 WBC (Bld) [Ratio] 0.0 /100 WBC Normal [facility] Comment on above: Order Comment: Speci men Type: BLOOD SPECIMENOrdering Facility: [facility] Address: [address] [place] [address] Performed By: #### 5 7021-8 ####[facility]ORATORYCLIA [id number] [address] [place] Platelet mean volume (Bld) [Entitic vol] 10.3 fL Normal 9.0-12.7 [facility] Comment on above: Order Comment: Speci men Type: BLOOD SPECIMENOrdering Facility: [facility] Address: [address] [place] [address] Performed By: #### 5 7021-8 ####[facility]ORATORYCLIA [id number] [address] [place] Platelets (Bld) [#/Vol] 403 10*3/uL High 150-400 [facility] Comment on above: Order Comment: Speci men Type: BLOOD SPECIMENOrdering Facility: [facility] Address: [address] [place] [address] Performed By: #### 5 7021-8 ####[facility]ATORYCLIA [id number] [address] [place] RBC (Bld) [#/Vol] 3.40 10*6/uL Low 4.20-6.00 [facility] Comment on above: Order Comment: Speci men Type: BLOOD SPECIMENOrdering Facility: [facility] Address: [address] [place] [address] Performed By: #### 5 7021-8 ####[facility]ATORYCLIA [id number] [address] [place] WBC (Bld) [#/Vol] 10.12 10*3/uL Normal 3.70-11.00 [facility] Comment on above: Order Comment: Speci men Type: BLOOD SPECIMENOrdering Facility: [facility] Address: [address] [place] [address] Performed By: #### 5 7021-8 ####[facility]ATORYCLIA [id number] [address] [facility] Magnesium SerPl-mCncon 07-18 Magnesium [Mass/Vol] 2.4 mg/dL High 1.7-2.3 [facility] Comment on above: Order Comment: Speci men Type: BLOOD SPECIMENOrdering Facility: [facility] Address: [address] [place] [address] Performed By: #### 2 4321-2, 23439-8, 2777-1 ####[facility]PITALCLIA [id number] [address] [facility] NURSING PROGon 07-18-2021 NURSING PROG Normal [facility] NURSING PROG Normal [facility] Phosphate SerPl-mCncon 07-18 Phosphate [Mass/Vol] 3.9 mg/dL Normal 2.7-4.8 [facility] Comment on above: Order Comment: Speci men Type: BLOOD SPECIMENOrdering Facility: [facility] Address: [address] [place] [address] Performed By: #### 2 4321-2, 62771-3, 2777-1 ####[facility]ATORYCLIA [id number] [address] [place] THERAPY NTon 07-18-2021 THERAPY NT Normal [facility] aPTT PPPon 07-18-2021 aPTT Coag (PPP) [Time] 52.3 s High 23.0-32.4 [facility] Comment on above: Order Comment: Speci men Type: BLOOD SPECIMENOrdering Facility: [facility] Address: [address] [place] [address] Performed By: #### 1 4979-9 ####[facility]ATORYCLIA [id number] [address] [facility] CBC W Auto Differential pane l (Bld)on 07-17-2021 Basophils (Bld) [#/Vol] 0.05 10*3/uL Normal <0.11 [facility] Comment on above: Order Comment: Speci men Type: BLOOD SPECIMENOrdering Facility: [facility] Address: [address] [place] [address] Performed By: #### 5 7021-8 ####[facility]ORATORYCLIA [id number] [address] Basophils/100 WBC (Bld) 0.5 % Normal [facility] Comment on above: Order Comment: Speci men Type: BLOOD SPECIMENOrdering Facility: [facility] Address: [address] [place] [address] Performed By: #### 5 7021-8 ####[facility]ATORYCLIA [id number] [address] Differential cell count method Nom (Bld) Auto Normal [facility] Comment on above: Order Comment: Speci men Type: BLOOD SPECIMENOrdering Facility: [facility] Address: [address] [place] [address] Performed By: #### 5 7021-8 ####[facility]ORATORYCLIA [id number] [address] [place] Eosinophils (Bld) [#/Vol] 0.32 10*3/uL Normal <0.46 [facility] Comment on above: Order Comment: Speci men Type: BLOOD SPECIMENOrdering Facility: [facility] Address: [address] [place] [address] Performed By: #### 5 7021-8 ####[facility]ATORYCLIA [id number] [address] Eosinophils/100 WBC (Bld) 3.4 % Normal [facility] Comment on above: Order Comment: Speci men Type: BLOOD SPECIMENOrdering Facility: [facility] Address: [address] [place] [address] Performed By: #### 5 7021-8 ####[facility]ATORYCLIA [id number] [address] Erythrocyte distribution width (RBC) [Ratio] 16.6 % High 11.5-15.0 [facility] Comment on above: Order Comment: Speci men Type: BLOOD SPECIMENOrdering Facility: [facility] Address: [address] [place] [address] Performed By: #### 5 7021-8 ####[facility]ATORYCLIA [id number] [address] Hematocrit (Bld) [Volume fraction] 30.7 % Low 39.0-51.0 [facility] Comment on above: Order Comment: Speci men Type: BLOOD SPECIMENOrdering Facility: [facility] Address: [address] [place] [address] Performed By: #### 5 7021-8 ####[facility]ATORYCLIA [id number] [address] Hemoglobin (Bld) [Mass/Vol] 9.0 g/dL Low 13.0-17.0 [facility] Comment on above: Order Comment: Speci men Type: BLOOD SPECIMENOrdering Facility: [facility] Address: [address] [place] [address] Performed By: #### 5 7021-8 ####[facility]ORATORYCLIA [id number] [address] STATES [facility] IMMATURE GRAN % 0.6 % Normal [facility] Comment on above: Order Comment: Speci men Type: BLOOD SPECIMENOrdering Facility: [facility] Address: [address] [place] [address] Performed By: #### 5 7021-8 ####[facility]ATORYCLIA [id number] [address] IMMATURE GRAN ABS 0.06 k/uL Normal <0.10 [facility] Comment on above: Order Comment: Speci men Type: BLOOD SPECIMENOrdering Facility: [facility] Address: [address] [place] [address] Performed By: #### 5 7021-8 ####[facility]ATORYCLIA [id number] [address] Lymphocytes (Bld) [#/Vol] 1.61 10*3/uL Normal 1.00-4.00 [facility] Comment on above: Order Comment: Speci men Type: BLOOD SPECIMENOrdering Facility: [facility] Address: [address] [place] [address] Performed By: #### 5 7021-8 ####[facility] LABORATORYCLIA [id number] [address] Lymphocytes/100 WBC (Bld) 17.3 % Normal [facility] Comment on above: Order Comment: Speci men Type: BLOOD SPECIMENOrdering Facility: [facility] Address: [address] [place] [address] Performed By: #### 5 7021-8 ####[facility] LABORATORYCLIA [id number] [place] [facility] ([facility]) [Entitic mass] 26.9 pg Normal 26.0-34.0 [facility] Comment on above: Order Comment: Speci men Type: BLOOD SPECIMENOrdering Facility: [facility] Address: [address] [place] [address] Performed By: #### 5 7021-8 ####[facility] LABORATORYCLIA [id number] [address] [place] MCHC (RBC) [Mass/Vol] 29.3 g/dL Low 30.5-36.0 [facility] Comment on above: Order Comment: Speci men Type: BLOOD SPECIMENOrdering Facility: [facility] Address: [address] [place] [address] Performed By: #### 5 7021-8 ####[facility]ORATORYCLIA [id number] [place] [address] [place] MCV (RBC) [Entitic vol] 91.9 fL Normal 80.0-100.0 [facility] Comment on above: Order Comment: Speci men Type: BLOOD SPECIMENOrdering Facility: [facility] Address: [address] [place] [address] Performed By: #### 5 7021-8 ####[facility]ATORYCLIA [id number] [place] [address] [place] Monocytes (Bld) [#/Vol] 0.61 10*3/uL Normal <0.87 [facility] Comment on above: Order Comment: Speci men Type: BLOOD SPECIMENOrdering Facility: [facility] Address: [address] [place] [address] Performed By: #### 5 7021-8 ####[facility]ORYCLIA [id number] [address] [place] Monocytes/100 WBC (Bld) 6.6 % Normal [facility] Comment on above: Order Comment: Speci men Type: BLOOD SPECIMENOrdering Facility: [facility] Address: [address] [place] [address] Performed By: #### 5 7021-8 ####[facility]ATORYCLIA [id number] [address] [place] Neutrophils (Bld) [#/Vol] 6.64 10*3/uL Normal 1.45-7.50 [facility] Comment on above: Order Comment: Speci men Type: BLOOD SPECIMENOrdering Facility: [facility] Address: [address] [place] [address] Performed By: #### 5 7021-8 ####[facility]ATORYCLIA [id number] [address] [place] Neutrophils/100 WBC (Bld) 71.6 % Normal [facility] Comment on above: Order Comment: Speci men Type: BLOOD SPECIMENOrdering Facility: [facility] Address: [address] [place] [address] Performed By: #### 5 7021-8 ####[facility]ORYCLIA [id number] [address] [place] Nucleated RBC (Bld) [#/Vol] 10*3/uL Normal <0.01 [facility] Comment on above: Order Comment: Speci men Type: BLOOD SPECIMENOrdering Facility: [facility] Address: [address] [place] [address] Performed By: #### 5 7021-8 ####[facility]ORYCLIA [id number] [address] [place] Nucleated RBC/100 WBC (Bld) [Ratio] 0.0 /100 WBC Normal [facility] Comment on above: Order Comment: Speci men Type: BLOOD SPECIMENOrdering Facility: [facility] Address: [address] [place] [address] Performed By: #### 5 7021-8 ####[facility]ATORYCLIA [id number] [address] [place] Platelet mean volume (Bld) [Entitic vol] 10.1 fL Normal 9.0-12.7 [facility] Comment on above: Order Comment: Speci men Type: BLOOD SPECIMENOrdering Facility: [facility] Address: [address] [place] [address] Performed By: #### 5 7021-8 ####[facility]ATORYCLIA [id number] [address] [place] Platelets (Bld) [#/Vol] 387 10*3/uL Normal 150-400 [facility] Comment on above: Order Comment: Speci men Type: BLOOD SPECIMENOrdering Facility: [facility] Address: [address] [place] [address] Performed By: #### 5 7021-8 ####[facility]ATORYCLIA [id number] [address] [place] RBC (Bld) [#/Vol] 3.34 10*6/uL Low 4.20-6.00 [facility] Comment on above: Order Comment: Speci men Type: BLOOD SPECIMENOrdering Facility: [facility] Address: [address] [place] [address] Performed By: #### 5 7021-8 ####[facility]ATORYCLIA [id number] [address] WBC (Bld) [#/Vol] 9.29 10*3/uL Normal 3.70-11.00 [facility] Comment on above: Order Comment: Speci men Type: BLOOD SPECIMENOrdering Facility: [facility] Address: [address] [place] [address] Performed By: #### 5 7021-8 ####[facility]ATORYCLIA [id number] [address] CONSULT PROGon 07-17-2021 CONSULT PROG Normal [facility] Magnesium SerPl-mCncon 07-17 Magnesium [Mass/Vol] 2.3 mg/dL Normal 1.7-2.3 [facility] Comment on above: Order Comment: Speci men Type: BLOOD SPECIMENOrdering Facility: [facility] Address: [address] [place] [address] Performed By: #### 2 777-1, 96008-2 ####[facility]ATORYCLIA [id number] [address] NURSING PROGon 07-17-2021 NURSING PROG Normal [facility] NURSING PROG Normal [facility] NURSING PROG Normal [facility] Phosphate SerPl-mCncon 07-17 Phosphate [Mass/Vol] 3.6 mg/dL Normal 2.7-4.8 [facility] Comment on above: Order Comment: Speci men Type: BLOOD SPECIMENOrdering Facility: [facility] Address: [address] [place] [address] Performed By: #### 2 777-1, 94854-8 ####[facility]ATORYCLIA [id number] [address] [place] aPTT PPPon 07-17-2021 aPTT Coag (PPP) [Time] 57.2 s High 23.0-32.4 [facility] Comment on above: Order Comment: Speci men Type: BLOOD SPECIMENOrdering Facility: [facility] Address: [address] [place] [address] Performed By: #### 1 4979-9 ####[facility]ATORYCLIA [id number] [place] [address] [place] Basic metabolic 2000 panelon 07-16-2021 Anion gap [Moles/Vol] 5 mmol/L Low 9-18 [facility] Comment on above: Order Comment: Speci men Type: BLOOD SPECIMENOrdering Facility: [facility] Address: [address] [place] [address] Performed By: #### 2 777-1, 42559-2, ####[facility]ORATORYCLIA [id number] [place] [address] [place] Calcium [Mass/Vol] 9.1 mg/dL Normal 8.5-10.2 [facility] Comment on above: Order Comment: Speci men Type: BLOOD SPECIMENOrdering Facility: [facility] Address: [address] [place] [address] Performed By: #### 2 777-1, 79106-2, ####[facility]ORATORYCLIA [id number] [place] [address] [place] Chloride [Moles/Vol] 101 mmol/L Normal 97-105 [facility] Comment on above: Order Comment: Speci men Type: BLOOD SPECIMENOrdering Facility: [facility] Address: [address] [place] [address] Performed By: #### 2 777-1, 38954-8, ####[facility]ATORYCLIA [id number] [place] [address] [place] CO2 [Moles/Vol] 35 mmol/L High 22-30 [facility] Comment on above: Order Comment: Speci men Type: BLOOD SPECIMENOrdering Facility: [facility] Address: [address] [place] [address] Performed By: #### 2 777-1, 75481-2, ####[facility] HOSPITALCLIA [id number] [place] [id number] [place] Creatinine [Mass/Vol] 0.73 mg/dL Normal 0.73-1.22 [facility] Comment on above: Order Comment: Speci men Type: BLOOD SPECIMENOrdering Facility: [facility] Address: [address] [place] [address] Performed By: #### 2 777-1, 10722-8, ####[facility] HOSPITALIA [id number] [address] [place] ESTIMATED GLOMERULAR FILTRATION RATE 98 mL/min/1.73m??? Normal >=60 [facility] Comment on above: Order Comment: Speci men Type: BLOOD SPECIMENOrdering Facility: [facility] Address: [address] [place] [address] Result Comment: Luzmaria mated Glomerular Filtration Rate [...] actual GFR. Performed By: #### 2 777-1, 49423-0, ####[facility] LABORATORYIA [id number] [place] [address] [place] Glucose [Mass/Vol] 133 mg/dL High 74-99 [facility] Comment on above: Order Comment: Speci men Type: BLOOD SPECIMENOrdering Facility: [facility] Address: [address] [place] [address] Result Comment: The [place] [employer] (ADA) provides guidance for cutoff [...] Standards of Medical Care in Diabetes 2016, [place] [employer]. Diabetes Care. 2016.39(Suppl 1). Performed By: #### 2 777-1, 31760-4, ####[facility]ATORYCLIA [id number] [place] [address] [place] Potassium [Moles/Vol] 4.2 mmol/L Normal 3.7-5.1 [facility] Comment on above: Order Comment: Shira feldman Type: BLOOD SPECIMENOrdering Facility: [facility] Address: [address] [place] [address] Performed By: #### 2 777-1, , ####[facility]ATORYCLIA [id number] [place] [address] [place] Sodium [Moles/Vol] 141 mmol/L Normal 136-144 [facility] Comment on above: Order Comment: Shira feldman Type: BLOOD SPECIMENOrdering Facility: [facility] Address: [address] [place] [address] Performed By: #### 2 777-1, , ####[facility]ATORYCLIA [id number] [place] [address] [place] Urea nitrogen [Mass/Vol] 21 mg/dL Normal 9-24 [facility] Comment on above: Order Comment: Shira feldman Type: BLOOD SPECIMENOrdering Facility: [facility] Address: [address] [place] [address] Performed By: #### 2 777-1, , ####[facility]ATORYCLIA [id number] [address] STATES OF [facility] CBC W Auto Differential pane l (Bld)on 07-16-2021 Basophils (Bld) [#/Vol] 0.06 10*3/uL Normal <0.11 [facility] Comment on above: Order Comment: Speci men Type: BLOOD SPECIMENOrdering Facility: [facility] Address: [address] [place] [address] Performed By: #### 5 7021-8 ####[facility]ATORYCLIA [id number] [address] Basophils/100 WBC (Bld) 0.7 % Normal [facility] Comment on above: Order Comment: Speci men Type: BLOOD SPECIMENOrdering Facility: [facility] Address: [address] [place] [address] Performed By: #### 5 7021-8 ####[facility]ATORYCLIA [id number] [address] Differential cell count method Nom (Bld) Auto Normal [facility] Comment on above: Order Comment: Speci men Type: BLOOD SPECIMENOrdering Facility: [facility] Address: [address] [place] [address] Performed By: #### 5 7021-8 ####[facility]ATORYCLIA [id number] [address] [place] Eosinophils (Bld) [#/Vol] 0.35 10*3/uL Normal <0.46 [facility] Comment on above: Order Comment: Speci men Type: BLOOD SPECIMENOrdering Facility: [facility] Address: [address] [place] [address] Performed By: #### 5 7021-8 ####[facility]ATORYCLIA [id number] [address] Eosinophils/100 WBC (Bld) 3.9 % Normal [facility] Comment on above: Order Comment: Speci men Type: BLOOD SPECIMENOrdering Facility: [facility] Address: [address] [place] [address] Performed By: #### 5 7021-8 ####[facility]ATORYCLIA [id number] [address] Erythrocyte distribution width (RBC) [Ratio] 16.5 % High 11.5-15.0 [facility] Comment on above: Order Comment: Speci men Type: BLOOD SPECIMENOrdering Facility: [facility] Address: [address] [place] [address] Performed By: #### 5 7021-8 ####[facility]ATORYCLIA [id number] [address] Hematocrit (Bld) [Volume fraction] 30.9 % Low 39.0-51.0 [facility] Comment on above: Order Comment: Speci men Type: BLOOD SPECIMENOrdering Facility: [facility] Address: [address] [place] [address] Performed By: #### 5 7021-8 ####[facility]ORYCLIA [id number] [address] Hemoglobin (Bld) [Mass/Vol] 9.1 g/dL Low 13.0-17.0 [facility] Comment on above: Order Comment: Speci men Type: BLOOD SPECIMENOrdering Facility: [facility] Address: [address] [place] [address] Performed By: #### 5 7021-8 ####[facility]ATORYCLIA [id number] [address] IMMATURE GRAN % 0.4 % Normal [facility] Comment on above: Order Comment: Speci men Type: BLOOD SPECIMENOrdering Facility: [facility] Address: [address] [place] [address] Performed By: #### 5 7021-8 ####[facility]ATORYCLIA [id number] [address] IMMATURE GRAN ABS 0.04 k/uL Normal <0.10 [facility] Comment on above: Order Comment: Speci men Type: BLOOD SPECIMENOrdering Facility: [facility] Address: [address] [place] [address] Performed By: #### 5 7021-8 ####[facility]ATORYCLIA [id number] [address] Lymphocytes (Bld) [#/Vol] 1.35 10*3/uL Normal 1.00-4.00 [facility] Comment on above: Order Comment: Speci men Type: BLOOD SPECIMENOrdering Facility: [facility] Address: [address] [place] [address] Performed By: #### 5 7021-8 ####[facility]ATORYCLIA [id number] [address] Lymphocytes/100 WBC (Bld) 15.0 % Normal [facility] Comment on above: Order Comment: Speci men Type: BLOOD SPECIMENOrdering Facility: [facility] Address: [address] [place] [address] Performed By: #### 5 7021-8 ####[facility]ATORYCLIA [id number] [address] STATES [facility] MCH (RBC) [Entitic mass] 27.1 pg Normal 26.0-34.0 [facility] Comment on above: Order Comment: Speci men Type: BLOOD SPECIMENOrdering Facility: [facility] Address: [address] [place] [address] Performed By: #### 5 7021-8 ####[facility]ATORYCLIA [id number] [address] [place] MCHC (RBC) [Mass/Vol] 29.4 g/dL Low 30.5-36.0 [facility] Comment on above: Order Comment: Speci men Type: BLOOD SPECIMENOrdering Facility: [facility] Address: [address] [place] [address] Performed By: #### 5 7021-8 ####[facility]ORATORYCLIA [id number] [place] [address] [place] MCV (RBC) [Entitic vol] 92.0 fL Normal 80.0-100.0 [facility] Comment on above: Order Comment: Speci men Type: BLOOD SPECIMENOrdering Facility: [facility] Address: [address] [place] [address] Performed By: #### 5 7021-8 ####[facility]ATORYCLIA [id number] [place] [address] [place] Monocytes (Bld) [#/Vol] 0.53 10*3/uL Normal <0.87 [facility] Comment on above: Order Comment: Speci men Type: BLOOD SPECIMENOrdering Facility: [facility] Address: [address] [place] [address] Performed By: #### 5 7021-8 ####[facility]ATORYCLIA [id number] [address] [place] Monocytes/100 WBC (Bld) 5.9 % Normal [facility] Comment on above: Order Comment: Speci men Type: BLOOD SPECIMENOrdering Facility: [facility] Address: [address] [place] [address] Performed By: #### 5 7021-8 ####[facility]ORYCLIA [id number] [address] [place] Neutrophils (Bld) [#/Vol] 6.67 10*3/uL Normal 1.45-7.50 [facility] Comment on above: Order Comment: Speci men Type: BLOOD SPECIMENOrdering Facility: [facility] Address: [address] [place] [address] Performed By: #### 5 7021-8 ####[facility]ATORYCLIA [id number] [address] [place] Neutrophils/100 WBC (Bld) 74.1 % Normal [facility] Comment on above: Order Comment: Speci men Type: BLOOD SPECIMENOrdering Facility: [facility] Address: [address] [place] [address] Performed By: #### 5 7021-8 ####[facility]ATORYCLIA [id number] [place] [address] [place] Nucleated RBC (Bld) [#/Vol] 10*3/uL Normal <0.01 [facility] Comment on above: Order Comment: Speci men Type: BLOOD SPECIMENOrdering Facility: [facility] Address: [address] [place] [address] Performed By: #### 5 7021-8 ####[facility]ORYCLIA [id number] [address] [place] Nucleated RBC/100 WBC (Bld) [Ratio] 0.0 /100 WBC Normal [facility] Comment on above: Order Comment: Speci men Type: BLOOD SPECIMENOrdering Facility: [facility] Address: [address] [place] [address] Performed By: #### 5 7021-8 ####[facility]ORYCLIA [id number] [address] [place] Platelet mean volume (Bld) [Entitic vol] 9.9 fL Normal 9.0-12.7 [facility] Comment on above: Order Comment: Speci men Type: BLOOD SPECIMENOrdering Facility: [facility] Address: [address] [place] [address] Performed By: #### 5 7021-8 ####[facility]ATORYCLIA [id number] [address] [place] Platelets (Bld) [#/Vol] 391 10*3/uL Normal 150-400 [facility] Comment on above: Order Comment: Speci men Type: BLOOD SPECIMENOrdering Facility: [facility] Address: [address] [place] [address] Performed By: #### 5 7021-8 ####[facility]ATORYCLIA [id number] [place] [address] [place] RBC (Bld) [#/Vol] 3.36 10*6/uL Low 4.20-6.00 [facility] Comment on above: Order Comment: Speci men Type: BLOOD SPECIMENOrdering Facility: [facility] Address: [address] [place] [address] Performed By: #### 5 7021-8 ####[facility]ORYCLIA [id number] [address] WBC (Bld) [#/Vol] 9.00 10*3/uL Normal 3.70-11.00 [facility] Comment on above: Order Comment: Speci men Type: BLOOD SPECIMENOrdering Facility: [facility] Address: [address] [place] [address] Performed By: #### 5 7021-8 ####[facility]ORYCLIA [id number] [address] CONSULT PROGon 07-16-2021 CONSULT PROG Normal [facility] CONSULT PROG Normal [facility] Magnesium SerPl-mCncon 07-16 Magnesium [Mass/Vol] 2.3 mg/dL Normal 1.7-2.3 [facility] Comment on above: Order Comment: Speci men Type: BLOOD SPECIMENOrdering Facility: [facility] Address: [address] [place] [address] Performed By: #### 2 777-1, 26073-2, ####[facility]ATORYCLIA [id number] [address] NURSING PROGon 07-16-2021 NURSING PROG Normal [facility] Phosphate SerPl-mCncon 07-16 Phosphate [Mass/Vol] 3.6 mg/dL Normal 2.7-4.8 [facility] Comment on above: Order Comment: Speci men Type: BLOOD SPECIMENOrdering Facility: [facility] Address: [address] [place] [address] Performed By: #### 2 777-1, 41489-1, ####[facility]ATORYCLIA [id number] [address] Vancomycin random [Mass/Vol] on 07-16-2021 Vancomycin [Mass/Vol] 16.9 ug/mL Normal 10.0-20.0 [facility] Comment on above: Order Comment: Speci men Type: BLOOD SPECIMENOrdering Facility: [facility] Address: [address] [place] [address] Result Comment: Refe rence ranges and high/low indicator flags are provided as general guidelines only. The treating physician must determine appropriate target levels/dosing based on the specific clinical situation. Performed By: #### 4 091-5 ####[facility]ATORYCLIA [id number] [address] OF [facility] aPTT PPPon 07-16-2021 aPTT Coag (PPP) [Time] 57.2 s High 23.0-32.4 [facility] Comment on above: Order Comment: Speci men Type: BLOOD SPECIMENOrdering Facility: [facility] Address: [address] [place] [address] Performed By: #### 1 4979-9 ####[facility]ATORYCLIA [id number] [address] [place] ALLIED HEALTHon 07-15-2021 ALLIED HEALTH Normal [facility] Basic metabolic 2000 panelon 07-15-2021 Anion gap [Moles/Vol] 11 mmol/L Normal 9-18 [facility] Comment on above: Order Comment: Speci men Type: BLOOD SPECIMENOrdering Facility: [facility] Address: [address] [place], [place] [address] [address] Performed By: #### 2 4321-2, , 2777-1 ####[facility]ATORYCLIA [id number] [address] STATES OF [facility] Calcium [Mass/Vol] 8.8 mg/dL Normal 8.5-10.2 [facility] Comment on above: Order Comment: Speci men Type: BLOOD SPECIMENOrdering Facility: [facility] Address: [address] [place], [place] [address] [address] Performed By: #### 2 4321-2, , 2776-05 ####[facility]ORATORYCLIA [id number] [place] [address] [place] Chloride [Moles/Vol] 101 mmol/L Normal 97-105 [facility] Comment on above: Order Comment: Speci men Type: BLOOD SPECIMENOrdering Facility: [facility] Address: [address] [place] [address] Performed By: #### 2 4321-2, , 2776-05 ####[facility]ATORYCLIA [id number] [place] [id number] [place] CO2 [Moles/Vol] 31 mmol/L High 22-30 [facility] Comment on above: Order Comment: Speci men Type: BLOOD SPECIMENOrdering Facility: [facility] Address: [address] [place] [address] Performed By: #### 2 432-2, , 2776-05 ####[facility]PITALCLIA [id number] [address] Creatinine [Mass/Vol] 0.76 mg/dL Normal 0.73-1.22 [facility] Comment on above: Order Comment: Speci men Type: BLOOD SPECIMENOrdering Facility: [facility] Address: [address] [place] [address] Performed By: #### 2 4321-2, , 2776-05 ####[facility]PITALCLIA [id number] [address] ESTIMATED GLOMERULAR FILTRATION RATE 97 mL/min/1.73m??? Normal >=60 [facility] Comment on above: Order Comment: Speci men Type: BLOOD SPECIMENOrdering Facility: [facility] Address: [address] [place] [address] Result Comment: Luzmaria mated Glomerular Filtration Rate [...] Performed By: #### 2 4321-2, , 2776-05 ####[facility]ATORYCLIA [id number] [place] [address] [place] Glucose [Mass/Vol] 115 mg/dL High 74-99 [facility] Comment on above: Order Comment: Shira feldman Type: BLOOD SPECIMENOrdering Facility: [facility] Address: [address] [id number] Result Comment: The [place] [employer] (ADA) provides guidance for cutoff [...] Standards of Medical Care in Diabetes 2016, [place] [employer]. Diabetes Care. 2016.39(Suppl 1). Performed By: #### 2 4321-2, , 2776-05 ####[facility] LABORATORYCLIA [id number] [place] [address] [place] Potassium [Moles/Vol] 4.0 mmol/L Normal 3.7-5.1 [facility] Comment on above: Order Comment: Shira feldman Type: BLOOD SPECIMENOrdering Facility: [facility] [facility] Address: [address] [place] [address] Performed By: #### 2 4321-2, , 2776-05 ####[facility]ATORYCLIA [id number] [place] [address] [place] Sodium [Moles/Vol] 143 mmol/L Normal 136-144 [facility] Comment on above: Order Comment: Speci men Type: BLOOD SPECIMENOrdering Facility: [facility] Address: [address] [place] [address] Performed By: #### 2 4321-2, , 2776-05 ####[facility]ATORYCLIA [id number] [address] [place] [facility] Urea nitrogen [Mass/Vol] 17 mg/dL Normal 9-24 [facility] Comment on above: Order Comment: Speci men Type: BLOOD SPECIMENOrdering Facility: [facility] Address: [address] [place] [address] Performed By: #### 2 4321-2, , 2776-05 ####[facility]ORYCLIA [id number] [address] OF [facility] CASE MANAGEMon 07-15-2021 CASE MANAGEM Normal [facility] CBC panel Auto (Bld)on 07-15 Erythrocyte distribution width (RBC) [Ratio] 16.4 % High 11.5-15.0 [facility] Comment on above: Order Comment: Speci men Type: BLOOD SPECIMENOrdering Facility: [facility] Address: [address] [place] [address] Performed By: #### 5 8410-2 ####[facility]ORYCLIA [id number] [address] [place] [facility] Hematocrit (Bld) [Volume fraction] 30.3 % Low 39.0-51.0 [facility] Comment on above: Order Comment: Speci men Type: BLOOD SPECIMENOrdering Facility: [facility] Address: [address] [place] [address] Performed By: #### 5 8410-2 ####[facility]ATORYCLIA [id number] [address] [place] Hemoglobin (Bld) [Mass/Vol] 9.2 g/dL Low 13.0-17.0 [facility] Comment on above: Order Comment: Speci men Type: BLOOD SPECIMENOrdering Facility: [facility] Address: [address] [address] Performed By: #### 5 8410-2 ####[facility]ATORYCLIA [id number] [address] MCH (RBC) [Entitic mass] 28.3 pg Normal 26.0-34.0 [facility] Comment on above: Order Comment: Speci men Type: BLOOD SPECIMENOrdering Facility: [facility] Address: [address] [place] [address] Performed By: #### 5 8410-2 ####[facility]ORYCLIA [id number] [address] MCHC (RBC) [Mass/Vol] 30.4 g/dL Low 30.5-36.0 [facility] Comment on above: Order Comment: Speci men Type: BLOOD SPECIMENOrdering Facility: [facility] Address: [address] [place] [address] Performed By: #### 5 8410-2 ####[facility]ORYCLIA [id number] [address] MCV (RBC) [Entitic vol] 93.2 fL Normal 80.0-100.0 [facility] Comment on above: Order Comment: Speci men Type: BLOOD SPECIMENOrdering Facility: [facility] Address: [address] [place] [address] Performed By: #### 5 8410-2 ####[facility]ORYCLIA [id number] [address] Nucleated RBC (Bld) [#/Vol] 10*3/uL Normal <0.01 [facility] Comment on above: Order Comment: Speci men Type: BLOOD SPECIMENOrdering Facility: [facility] Address: [address] [place] [address] Performed By: #### 5 8410-2 ####[facility]ORYCLIA [id number] [address] Platelet mean volume (Bld) [Entitic vol] 9.9 fL Normal 9.0-12.7 [facility] Comment on above: Order Comment: Speci men Type: BLOOD SPECIMENOrdering Facility: [facility] Address: [address] [place] [address] Performed By: #### 5 8410-2 ####[facility]ORYCLIA [id number] [place] [address] [place] Platelets (Bld) [#/Vol] 381 10*3/uL Normal 150-400 [facility] Comment on above: Order Comment: Speci men Type: BLOOD SPECIMENOrdering Facility: [facility] Address: [address] [place] [address] Performed By: #### 5 8410-2 ####[facility]ORYCLIA [id number] [place] [address] [place] RBC (Bld) [#/Vol] 3.25 10*6/uL Low 4.20-6.00 [facility] Comment on above: Order Comment: Speci men Type: BLOOD SPECIMENOrdering Facility: [facility] Address: [address] [place] [address] Performed By: #### 5 8410-2 ####[facility]ORYCLIA [id number] [address] [place] WBC (Bld) [#/Vol] 8.80 10*3/uL Normal 3.70-11.00 [facility] Comment on above: Order Comment: Speci men Type: BLOOD SPECIMENOrdering Facility: [facility] Address: [address] [place] [address] Performed By: #### 5 8410-2 ####[facility]ATORYCLIA [id number] [address] [place] Magnesium SerPl-mCncon 07-15 Magnesium [Mass/Vol] 2.2 mg/dL Normal 1.7-2.3 [facility] Comment on above: Order Comment: Speci men Type: BLOOD SPECIMENOrdering Facility: [facility] Address: [address] [address] Performed By: #### 2 4321-2, 84014-3, 2777-1 ####[facility]ATORYCLIA [id number] [address] [place] [facility] NURSING PROGon 07-15-2021 NURSING PROG Normal [facility] NURSING PROG Normal [facility] NURSING PROG Normal [facility] NUTRITIONon 07-15-2021 NUTRITION Normal [facility] Phosphate SerPl-mCncon 07-15 Phosphate [Mass/Vol] 3.4 mg/dL Normal 2.7-4.8 [facility] Comment on above: Order Comment: Speci men Type: BLOOD SPECIMENOrdering Facility: [facility] Address: [address] [address] Performed By: #### 2 4321-2, 85000-2, 27771 ####[facility]ORYCLIA [id number] [address] THERAPY NTon 07-15-2021 THERAPY NT Normal [facility] US DVT UPPER LTon 07-15-2021 US DVT UPPER LT Normal [facility] XR CHEST 1V FRONTALon 2021 XR CHEST 1V FRONTAL Normal [facility] aPTT PPPon 07-15-2021 aPTT Coag (PPP) [Time] 59.9 s High 23.0-32.4 [facility] Comment on above: Order Comment: Speci men Type: BLOOD SPECIMENOrdering Facility: [facility] Address: [address] [address] Performed By: #### 1 4979-9 ####[facility]ATORYCLIA [id number] [address] [place] Basic metabolic 2000 panelon 07-14-2021 Anion gap [Moles/Vol] 9 mmol/L Normal 9-18 [facility] Comment on above: Order Comment: Speci men Type: BLOOD SPECIMENOrdering Facility: [facility] Address: [address] [address] Performed By: #### 1 9123-9, 2777-1, 69720-5 ####[facility]ATORYCLIA [id number] [place] [address] [place] Calcium [Mass/Vol] 8.5 mg/dL Normal 8.5-10.2 [facility] Comment on above: Order Comment: Speci men Type: BLOOD SPECIMENOrdering Facility: [facility] Address: [address] [place] [address] Performed By: #### 1 9123-9, 27711-04, 66374-9 ####[facility]ATORYCLIA [id number] [place] [address] [place] Chloride [Moles/Vol] 99 mmol/L Normal 97-105 [facility] Comment on above: Order Comment: Speci men Type: BLOOD SPECIMENOrdering Facility: [facility] Address: [address] [place] [address] Performed By: #### 1 9123-9, 2776-05, 13068-0 ####[facility]ATORYCLIA [id number] [place] [address] [place] CO2 [Moles/Vol] 31 mmol/L High 22-30 [facility] Comment on above: Order Comment: Speci men Type: BLOOD SPECIMENOrdering Facility: [facility] Address: [address] [place] [address] Performed By: #### 1 9123-9, 2776-05, 24262-7 ####[facility]ATORYCLIA [id number] [place] [address] [place] Creatinine [Mass/Vol] 0.74 mg/dL Normal 0.73-1.22 [facility] Comment on above: Order Comment: Speci men Type: BLOOD SPECIMENOrdering Facility: [facility] Address: [address] [place] [address] Performed By: #### 1 9123-9, 27711-04, 89210-1 ####[facility]ATORYCLIA [id number] [place] [address] [place] ESTIMATED GLOMERULAR FILTRATION RATE 98 mL/min/1.73m??? Normal >=60 [facility] Comment on above: Order Comment: Shira feldman Type: BLOOD SPECIMENOrdering Facility: [facility] Address: [address] [place] [address] Result Comment: Luzmaria mated Glomerular Filtration Rate [...] GFR. Performed By: #### 1 9123-9, 2777-1, 66116-8 ####[facility]ATORYCLIA [id number] [place] [address] [place] Glucose [Mass/Vol] 117 mg/dL High 74-99 [facility] Comment on above: Order Comment: Shira feldman Type: BLOOD SPECIMENOrdering Facility: [facility] Address: [address] [place] [address] Result Comment: The [place] [employer] (ADA) provides guidance for cutoff [...] Standards of Medical Care in Diabetes 2016, [place] [employer]. Diabetes Care. 2016.39(Suppl 1). Performed By: #### 1 9123-9, 2777-1, 95497-5 ####[facility]ATORYCLIA [id number] [place] [id number] [place] Potassium [Moles/Vol] 3.7 mmol/L Normal 3.7-5.1 [facility] Comment on above: Order Comment: Speci men Type: BLOOD SPECIMENOrdering Facility: [facility] Address: [address] [place] [address] Performed By: #### 1 9123-9, 2777-, 78002-1 ####[facility]ATORYCLIA [id number] [address] [place] [facility] Sodium [Moles/Vol] 139 mmol/L Normal 136-144 [facility] Comment on above: Order Comment: Speci men Type: BLOOD SPECIMENOrdering Facility: [facility] Address: [address] [place] [address] Performed By: #### 1 9123-9, 27711-04, 90431-0 ####[facility]ORYCLIA [id number] [address] [place] [facility] Urea nitrogen [Mass/Vol] 16 mg/dL Normal 9-24 [facility] Comment on above: Order Comment: Speci men Type: BLOOD SPECIMENOrdering Facility: [facility] Address: [address] [place] [address] Performed By: #### 1 9123-9, 27711-04, 94535-2 ####[facility]ORYCLIA [id number] [address] [place] [facility] CBC panel Auto (Bld)on 07-14 Erythrocyte distribution width (RBC) [Ratio] 16.2 % High 11.5-15.0 [facility] Comment on above: Order Comment: Speci men Type: BLOOD SPECIMENOrdering Facility: [facility] Address: [address] [place] [address] Performed By: #### 5 8410-2 ####[facility]ATORYCLIA [id number] [address] Hematocrit (Bld) [Volume fraction] 29.7 % Low 39.0-51.0 [facility] Comment on above: Order Comment: Speci men Type: BLOOD SPECIMENOrdering Facility: [facility] Address: [address] [place], [place] [id number] Performed By: #### 5 8410-2 ####[facility]ORYCLIA [id number] [address] Hemoglobin (Bld) [Mass/Vol] 8.8 g/dL Low 13.0-17.0 [facility] Comment on above: Order Comment: Speci men Type: BLOOD SPECIMENOrdering Facility: [facility] Address: [address] [place] [address] Performed By: #### 5 8410-2 ####[facility]ORYCLIA [id number] [address] MCH (RBC) [Entitic mass] 27.5 pg Normal 26.0-34.0 [facility] Comment on above: Order Comment: Speci men Type: BLOOD SPECIMENOrdering Facility: [facility] Address: [address] [place] [address] Performed By: #### 5 8410-2 ####[facility]ORYCLIA [id number] [address] MCHC (RBC) [Mass/Vol] 29.6 g/dL Low 30.5-36.0 [facility] Comment on above: Order Comment: Speci men Type: BLOOD SPECIMENOrdering Facility: [facility] Address: [address] [place] [address] Performed By: #### 5 8410-2 ####[facility]ORYCLIA [id number] [address] MCV (RBC) [Entitic vol] 92.8 fL Normal 80.0-100.0 [facility] Comment on above: Order Comment: Speci men Type: BLOOD SPECIMENOrdering Facility: [facility] Address: [address] [place] [address] Performed By: #### 5 8410-2 ####[facility]ORYCLIA [id number] [address] Nucleated RBC (Bld) [#/Vol] 10*3/uL Normal <0.01 [facility] Comment on above: Order Comment: Speci men Type: BLOOD SPECIMENOrdering Facility: [facility] Address: [address] [place] [address] Performed By: #### 5 8410-2 ####[facility]ATORYCLIA [id number] [address] [place] Platelet mean volume (Bld) [Entitic vol] 9.6 fL Normal 9.0-12.7 [facility] Comment on above: Order Comment: Speci men Type: BLOOD SPECIMENOrdering Facility: [facility] Address: [address] [place] [address] Performed By: #### 5 8410-2 ####[facility]ATORYCLIA [id number] [address] [place] Platelets (Bld) [#/Vol] 354 10*3/uL Normal 150-400 [facility] Comment on above: Order Comment: Speci men Type: BLOOD SPECIMENOrdering Facility: [facility] Address: [address] [place] [address] Performed By: #### 5 8410-2 ####[facility]ATORYCLIA [id number] [address] [place] RBC (Bld) [#/Vol] 3.20 10*6/uL Low 4.20-6.00 [facility] Comment on above: Order Comment: Speci men Type: BLOOD SPECIMENOrdering Facility: [facility] Address: [address] [place], [place] [address] Performed By: #### 5 8410-2 ####[facility]ORATORYCLIA [id number] [address] [place] WBC (Bld) [#/Vol] 9.41 10*3/uL Normal 3.70-11.00 [facility] Comment on above: Order Comment: Speci men Type: BLOOD SPECIMENOrdering Facility: [facility] Address: [address] [place] [address] Performed By: #### 5 8410-2 ####[facility]ATORYCLIA [id number] [address] [place] CONSULT PROGon 07-14-2021 CONSULT PROG Normal [facility] Magnesium SerPl-mCncon 07-14 Magnesium [Mass/Vol] 2.2 mg/dL Normal 1.7-2.3 [facility] Comment on above: Order Comment: Speci men Type: BLOOD SPECIMENOrdering Facility: [facility] Address: [address] [place] [address] Performed By: #### 1 9123-9, 2777-1, 58023-1 ####[facility]ORYCLIA [id number] [address] NURSING PROGon 07-14-2021 NURSING PROG Normal [facility] Phosphate SerPl-mCncon 07-14 Phosphate [Mass/Vol] 3.6 mg/dL Normal 2.7-4.8 [facility] Comment on above: Order Comment: Speci men Type: BLOOD SPECIMENOrdering Facility: [facility] Address: [address] [place] [address] Performed By: #### 1 9123-9, 2777-1, 17604-9 ####[facility]ATORYCLIA [id number] [address] [place] aPTT PPPon 07-14-2021 aPTT Coag (PPP) [Time] 62.9 s High 23.0-32.4 [facility] Comment on above: Order Comment: Speci men Type: BLOOD SPECIMENOrdering Facility: [facility] Address: [address] [place] [address] Performed By: #### 1 4979-9 ####[facility]ATORYCLIA [id number] [address] [place] [facility] aPTT Coag (PPP) [Time] 55.2 s High 23.0-32.4 [facility] Comment on above: Order Comment: Speci men Type: BLOOD SPECIMENOrdering Facility: [facility] Address: [address] [place] [address] Performed By: #### 1 4979-9 ####[facility]ATORYCLIA [id number] [place] [address] [place] Basic metabolic 2000 panelon 07-13-2021 Anion gap [Moles/Vol] 10 mmol/L Normal 9-18 [facility] Comment on above: Order Comment: Speci men Type: BLOOD SPECIMENOrdering Facility: [facility] Address: [address] [place] [address] Performed By: #### 1 9123-9, 2777-1, 96257-6 ####[facility]ATORYCLIA [id number] [place] [address] [place] Calcium [Mass/Vol] 8.5 mg/dL Normal 8.5-10.2 [facility] Comment on above: Order Comment: Speci men Type: BLOOD SPECIMENOrdering Facility: [facility] Address: [address] [place] [address] Performed By: #### 1 9123-9, 27771, 78004-0 ####[facility]ATORYCLIA [id number] [place] [address] [place] Chloride [Moles/Vol] 98 mmol/L Normal 97-105 [facility] Comment on above: Order Comment: Speci men Type: BLOOD SPECIMENOrdering Facility: [facility] Address: [address] [place] [address] Performed By: #### 1 9123-9, 2771, 43848-8 ####[facility]ATORYCLIA [id number] [place] [address] [place] CO2 [Moles/Vol] 32 mmol/L High 22-30 [facility] Comment on above: Order Comment: Speci men Type: BLOOD SPECIMENOrdering Facility: [facility] Address: [address] [place] [address] Performed By: #### 1 9123-9, 2777-1, 78924-1 ####[facility] HOSPITALIA [id number] [place] [address] [place] [facility] Creatinine [Mass/Vol] 0.75 mg/dL Normal 0.73-1.22 [facility] Comment on above: Order Comment: Shira feldman Type: BLOOD SPECIMENOrdering Facility: [facility] Address: [address] [id number] Performed By: #### 1 9123-9, 2777, 03181-9 ####[facility] HOSPITALIA [id number] [place] [id number] [place] ESTIMATED GLOMERULAR FILTRATION RATE 98 mL/min/1.73m??? Normal >=60 [facility] Comment on above: Order Comment: Shira fedlman Type: BLOOD SPECIMENOrdering Facility: [facility] Address: [address] [place] [address] Result Comment: Luzmaria mated Glomerular Filtration Rate [...] GFR. Performed By: #### 1 9123-9, 2777, 82788-9 ####[facility] HOSPITALIA [id number] [place] [id number] [place] [facility] Glucose [Mass/Vol] 118 mg/dL High 74-99 [facility] Comment on above: Order Comment: Shira francia Type: BLOOD SPECIMENOrdering Facility: [facility] Address: [address] [phone] Result Comment: The [place] Diabetes [employer] (ADA) provides guidance for cutoff [...] Standards of Medical Care in Diabetes 2016, [place] [employer]. Diabetes Care. 2016.39(Suppl 1). Performed By: #### 1 9123-9, 2777-1, 57259-0 ####[facility]ATORYCLIA [id number] [address] [place] [facility] Potassium [Moles/Vol] 3.6 mmol/L Low 3.7-5.1 [facility] Comment on above: Order Comment: Speci francia Type: BLOOD SPECIMENOrdering Facility: [facility] Address: [address] [place] [address] Performed By: #### 1 9123-9, 2777-, 84530-8 ####[facility] HOSPITALCLIA [id number] [address] STATES [facility] Sodium [Moles/Vol] 140 mmol/L Normal 136-144 [facility] Comment on above: Order Comment: Speci francia Type: BLOOD SPECIMENOrdering Facility: [facility] Address: [address] [place] [address] Performed By: #### 1 9123-9, 2777-, 27197-9 ####[facility]ATORYCLIA [id number] [address] STATES [facility] Urea nitrogen [Mass/Vol] 15 mg/dL Normal 9-24 [facility] Comment on above: Order Comment: Speci men Type: BLOOD SPECIMENOrdering Facility: [facility] Address: [address] [place] [address] Performed By: #### 1 9123-9, 2777, 80640-3 ####[facility]ATORYCLIA [id number] [address] [place] CASE MANAGEMon 07-13-2021 CASE MANAGEM Normal [facility] CBC panel Auto (Bld)on 03-09 -2022 Erythrocyte distribution width (RBC) [Ratio] 16.2 % High 11.5-15.0 [facility] Comment on above: Order Comment: Speci men Type: BLOOD SPECIMENOrdering Facility: [facility] Address: [address] [place] [address] Performed By: #### 5 8410-2 ####[facility]ATORYCLIA [id number] [address] Hematocrit (Bld) [Volume fraction] 29.5 % Low 39.0-51.0 [facility] Comment on above: Order Comment: Speci men Type: BLOOD SPECIMENOrdering Facility: [facility] Address: [address] [place] [address] Performed By: #### 5 8410-2 ####[facility]ATORYCLIA [id number] [address] [place] [facility] Hemoglobin (Bld) [Mass/Vol] 8.9 g/dL Low 13.0-17.0 [facility] Comment on above: Order Comment: Speci men Type: BLOOD SPECIMENOrdering Facility: [facility] Address: [address] [place] [address] Performed By: #### 5 8410-2 ####[facility]ATORYCLIA [id number] [address] OF [facility] MCH (RBC) [Entitic mass] 27.8 pg Normal 26.0-34.0 [facility] Comment on above: Order Comment: Speci men Type: BLOOD SPECIMENOrdering Facility: [facility] Address: [address] [place] [address] Performed By: #### 5 8410-2 ####[facility]ORYCLIA [id number] [address] MCHC (RBC) [Mass/Vol] 30.2 g/dL Low 30.5-36.0 [facility] Comment on above: Order Comment: Speci men Type: BLOOD SPECIMENOrdering Facility: [facility] Address: [address] [place] [address] Performed By: #### 5 8410-2 ####[facility]ATORYCLIA [id number] [address] MCV (RBC) [Entitic vol] 92.2 fL Normal 80.0-100.0 [facility] Comment on above: Order Comment: Speci men Type: BLOOD SPECIMENOrdering Facility: [facility] Address: [address] [place] [address] Performed By: #### 5 8410-2 ####[facility]ORYCLIA [id number] [address] Nucleated RBC (Bld) [#/Vol] 10*3/uL Normal <0.01 [facility] Comment on above: Order Comment: Speci men Type: BLOOD SPECIMENOrdering Facility: [facility] Address: [address] [place] [address] Performed By: #### 5 8410-2 ####[facility]ORYCLIA [id number] [address] Platelet mean volume (Bld) [Entitic vol] 9.8 fL Normal 9.0-12.7 [facility] Comment on above: Order Comment: Speci men Type: BLOOD SPECIMENOrdering Facility: [facility] Address: [address] [place] [address] Performed By: #### 5 8410-2 ####[facility] LABORATORYCLIA [id number] [address] Platelets (Bld) [#/Vol] 356 10*3/uL Normal 150-400 [facility] Comment on above: Order Comment: Speci men Type: BLOOD SPECIMENOrdering Facility: [facility] Address: [address] [place] [address] Performed By: #### 5 8410-2 ####[facility] LABORATORYCLIA [id number] [address] [place] RBC (Bld) [#/Vol] 3.20 10*6/uL Low 4.20-6.00 [facility] Comment on above: Order Comment: Speci men Type: BLOOD SPECIMENOrdering Facility: [facility] Address: [address] [place] [address] Performed By: #### 5 8410-2 ####[facility] LABORATORYCLIA [id number] [address] [facility] WBC (Bld) [#/Vol] 9.20 10*3/uL Normal 3.70-11.00 [facility] Comment on above: Order Comment: Speci men Type: BLOOD SPECIMENOrdering Facility: [facility] Address: [address] [place] [address] Performed By: #### 5 8410-2 ####[facility]ATORYCLIA [id number] [address] CONSULT PROGon 07-13-2021 CONSULT PROG Normal [facility] CONSULT PROG Normal [facility] CONSULT PROG Normal [facility] Magnesium SerPl-mCncon 07-13 Magnesium [Mass/Vol] 2.1 mg/dL Normal 1.7-2.3 [facility] Comment on above: Order Comment: Speci men Type: BLOOD SPECIMENOrdering Facility: [facility] Address: [address] [place] [address] Performed By: #### 1 9123-9, 2777-1, 74948-6 ####[facility]ATORYCLIA [id number] [address] Phosphate SerPl-mCncon 07-13 Phosphate [Mass/Vol] 3.7 mg/dL Normal 2.7-4.8 [facility] Comment on above: Order Comment: Speci men Type: BLOOD SPECIMENOrdering Facility: [facility] Address: [address] [place] [address] Performed By: #### 1 9123-9, 2777-1, 65457-5 ####[facility]ATORYCLIA [id number] [address] [place] THERAPY NTon 07-13-2021 THERAPY NT Normal [facility] THERAPY NT Normal [facility] Vancomycin random [Mass/Vol] on 07-13-2021 Vancomycin [Mass/Vol] 31.7 ug/mL High 10.0-20.0 [facility] Comment on above: Order Comment: Speci men Type: BLOOD SPECIMENOrdering Facility: [facility] Address: [address] [place] [address] Result Comment: Refe rence ranges and high/low indicator flags are provided as general guidelines only. The treating physician must determine appropriate target levels/dosing based on the specific clinical situation. Performed By: #### 4 091-5 ####[facility]ATORYCLIA [id number] [address] aPTT PPPon 07-13-2021 aPTT Coag (PPP) [Time] 47.3 s High 23.0-32.4 [facility] Comment on above: Order Comment: Speci men Type: BLOOD SPECIMENOrdering Facility: [facility] Address: [address] [place] [address] Performed By: #### 1 4979-9 ####[facility]ATORYCLIA [id number] [address] aPTT Coag (PPP) [Time] 51.2 s High 23.0-32.4 [facility] Comment on above: Order Comment: Speci men Type: BLOOD SPECIMENOrdering Facility: [facility] Address: [address] [place] [address] Performed By: #### 1 4979-9 ####[facility]ATORYCLIA [id number] [address] aPTT Coag (PPP) [Time] 47.5 s High 23.0-32.4 [facility] Comment on above: Order Comment: Speci men Type: BLOOD SPECIMENOrdering Facility: [facility] Address: [address] [place] [address] Performed By: #### 1 4979-9 ####[facility]ATORYCLIA [id number] [place] [address] [place] Basic metabolic 2000 panelon 07-12-2021 Anion gap [Moles/Vol] 7 mmol/L Low 9-18 [facility] Comment on above: Order Comment: Speci men Type: BLOOD SPECIMENOrdering Facility: [facility] Address: [address] [place] [address] Performed By: #### 1 9123-9, 2777-, 15574-5 ####[facility]ATORYCLIA [id number] [place] [address] [place] Calcium [Mass/Vol] 8.3 mg/dL Low 8.5-10.2 [facility] Comment on above: Order Comment: Speci men Type: BLOOD SPECIMENOrdering Facility: [facility] Address: [address] [place] [address] Performed By: #### 1 9123-9, 2777, 11862-9 ####[facility]ATORYCLIA [id number] [place] [address] [place] Chloride [Moles/Vol] 101 mmol/L Normal 97-105 [facility] Comment on above: Order Comment: Speci men Type: BLOOD SPECIMENOrdering Facility: [facility] Address: [address] [place] [address] Performed By: #### 1 9123-9, 2777, 90958-7 ####[facility]ATORYCLIA [id number] [place] [address] [place] CO2 [Moles/Vol] 32 mmol/L High 22-30 [facility] Comment on above: Order Comment: Speci men Type: BLOOD SPECIMENOrdering Facility: [facility] Address: [address] [place] [address] Performed By: #### 1 9123-9, 2777-1, 32879-6 ####[facility]ATORYCLIA [id number] [place] [address] [place] Creatinine [Mass/Vol] 0.70 mg/dL Low 0.73-1.22 [facility] Comment on above: Order Comment: Shira feldman Type: BLOOD SPECIMENOrdering Facility: [facility] Address: [address] [address] Performed By: #### 1 9123-9, 2777-1, 64532-6 ####[facility]ATORYCLIA [id number] [address] [facility] ESTIMATED GLOMERULAR FILTRATION RATE 100 mL/min/1.73m??? Normal >=60 [facility] Comment on above: Order Comment: Shira feldman Type: BLOOD SPECIMENOrdering Facility: [facility] Address: [address] [address] Result Comment: Luzmaria mated Glomerular Filtration Rate [...] GFR. Performed By: #### 1 9123-9, 2777-1, 90214-0 ####[facility]ATORYCLIA [id number] [place] [address] [place] Glucose [Mass/Vol] 104 mg/dL High 74-99 [facility] Comment on above: Order Comment: Shira feldman Type: BLOOD SPECIMENOrdering Facility: [facility] Address: [address] [address] Result Comment: The [place] Diabetes [employer] (ADA) provides guidance for cutoff [...] Standards of Medical Care in Diabetes 2016, [place] [employer]. Diabetes Care. 2016.39(Suppl 1). Performed By: #### 1 9123-9, 2777-, 50345-9 ####[facility]ATORYCLIA [id number] [place] [address] [place] Potassium [Moles/Vol] 3.7 mmol/L Normal 3.7-5.1 [facility] Comment on above: Order Comment: Speci men Type: BLOOD SPECIMENOrdering Facility: [facility] Address: [address] [place] [address] Performed By: #### 1 9123-9, 2777-, 54233-6 ####[facility]ATORYCLIA [id number] [address] STATES [facility] Sodium [Moles/Vol] 140 mmol/L Normal 136-144 [facility] Comment on above: Order Comment: Speci men Type: BLOOD SPECIMENOrdering Facility: [facility] Address: [facility] [address] Performed By: #### 1 9123-9, 2777-, 25326-9 ####[facility]ATORYCLIA [id number] [address] [place] Urea nitrogen [Mass/Vol] 12 mg/dL Normal 9-24 [facility] Comment on above: Order Comment: Speci men Type: BLOOD SPECIMENOrdering Facility: [facility] Address: [address] [address] Performed By: #### 1 9123-9, 2777-, 24775-6 ####[facility]ATORYCLIA [id number] [address] [place] CBC panel Auto (Bld)on 07-12 Erythrocyte distribution width (RBC) [Ratio] 16.1 % High 11.5-15.0 [facility] Comment on above: Order Comment: Speci men Type: BLOOD SPECIMENOrdering Facility: [facility] Address: [address] [address] Performed By: #### 5 8410-2 ####[facility]ATORYCLIA [id number] [address] Hematocrit (Bld) [Volume fraction] 28.2 % Low 39.0-51.0 [facility] Comment on above: Order Comment: Speci men Type: BLOOD SPECIMENOrdering Facility: [facility] Address: [address] [place] [address] Performed By: #### 5 8410-2 ####[facility]ATORYCLIA [id number] [address] Hemoglobin (Bld) [Mass/Vol] 8.5 g/dL Low 13.0-17.0 [facility] Comment on above: Order Comment: Speci men Type: BLOOD SPECIMENOrdering Facility: [facility] Address: [address] [place] [address] Performed By: #### 5 8410-2 ####[facility]ATORYCLIA [id number] [address] MCH (RBC) [Entitic mass] 26.8 pg Normal 26.0-34.0 [facility] Comment on above: Order Comment: Speci men Type: BLOOD SPECIMENOrdering Facility: [facility] Address: [address] [place] [address] Performed By: #### 5 8410-2 ####[facility]ATORYCLIA [id number] [address] [place] MCHC (RBC) [Mass/Vol] 30.1 g/dL Low 30.5-36.0 [facility] Comment on above: Order Comment: Speci men Type: BLOOD SPECIMENOrdering Facility: [facility] Address: [address] [place] [address] Performed By: #### 5 8410-2 ####[facility]ATORYCLIA [id number] [address] [place] MCV (RBC) [Entitic vol] 89.0 fL Normal 80.0-100.0 [facility] Comment on above: Order Comment: Speci men Type: BLOOD SPECIMENOrdering Facility: [facility] Address: [address] [place] [address] Performed By: #### 5 8410-2 ####[facility]ATORYCLIA [id number] [address] Nucleated RBC (Bld) [#/Vol] 10*3/uL Normal <0.01 [facility] Comment on above: Order Comment: Speci men Type: BLOOD SPECIMENOrdering Facility: [facility] Address: [address] [place] [address] Performed By: #### 5 8410-2 ####[facility]ATORYCLIA [id number] [address] [place] Platelet mean volume (Bld) [Entitic vol] 9.6 fL Normal 9.0-12.7 [facility] Comment on above: Order Comment: Speci men Type: BLOOD SPECIMENOrdering Facility: [facility] Address: [address] [place] [address] Performed By: #### 5 8410-2 ####[facility]ATORYCLIA [id number] [address] [place] Platelets (Bld) [#/Vol] 340 10*3/uL Normal 150-400 [facility] Comment on above: Order Comment: Speci men Type: BLOOD SPECIMENOrdering Facility: [facility] Address: [address] [place], [place] [id number] Performed By: #### 5 8410-2 ####[facility]ATORYCLIA [id number] [address] [place] RBC (Bld) [#/Vol] 3.17 10*6/uL Low 4.20-6.00 [facility] Comment on above: Order Comment: Speci men Type: BLOOD SPECIMENOrdering Facility: [facility] Address: [address] [place] [address] Performed By: #### 5 8410-2 ####[facility]ORYCLIA [id number] [address] [place] WBC (Bld) [#/Vol] 8.66 10*3/uL Normal 3.70-11.00 [facility] Comment on above: Order Comment: Speci men Type: BLOOD SPECIMENOrdering Facility: [facility] Address: [address] [place] [address] Performed By: #### 5 8410-2 ####[facility]ATORYCLIA [id number] [address] [place] CONSULTon 07-12-2021 CONSULT Normal [facility] CONSULT PROGon 07-12-2021 CONSULT PROG Normal [facility] Magnesium SerPl-ncon 07-12 Magnesium [Mass/Vol] 2.1 mg/dL Normal 1.7-2.3 [facility] Comment on above: Order Comment: Speci men Type: BLOOD SPECIMENOrdering Facility: [facility] Address: [address] [place] [address] Performed By: #### 1 9123-9, 2777-1, 68842-0 ####[facility]ATORYCLIA [id number] [address] NURSING PROGon 07-12-2021 NURSING PROG Normal [facility] Phosphate SerPl-mCncon 07-12 Phosphate [Mass/Vol] 3.1 mg/dL Normal 2.7-4.8 [facility] Comment on above: Order Comment: Speci men Type: BLOOD SPECIMENOrdering Facility: [facility] Address: [address] [place] [address] Performed By: #### 1 9123-9, 2777-1, 87608-4 ####[facility]ATORYCLIA [id number] [address] THERAPY NTon 07-12-2021 THERAPY NT Normal [facility] aPTT PPPon 07-12-2021 aPTT Coag (PPP) [Time] 49.5 s High 23.0-32.4 [facility] Comment on above: Order Comment: Speci men Type: BLOOD SPECIMENOrdering Facility: [facility] Address: [address] [place] [address] Performed By: #### 1 4979-9 ####[facility]ORYCLIA [id number] [address] [facility] aPTT Coag (PPP) [Time] 68.0 s High 23.0-32.4 [facility] Comment on above: Order Comment: Speci men Type: BLOOD SPECIMENOrdering Facility: [facility] Address: [address] [place] [address] Performed By: #### 1 4979-9 ####[facility]ATORYCLIA [id number] [address] [facility] aPTT Coag (PPP) [Time] 80.0 s High 23.0-32.4 [facility] Comment on above: Order Comment: Speci men Type: BLOOD SPECIMENOrdering Facility: [facility] Address: [address] [place] [address] Performed By: #### 1 4979-9 ####[facility]ATORYCLIA [id number] [address] [facility] CASE MGT INIT ASSESon 2021 CASE MGT INIT ASSES Normal [facility] CBC panel Auto (Bld)on 07-11 Erythrocyte distribution width (RBC) [Ratio] 16.3 % High 11.5-15.0 [facility] Comment on above: Order Comment: Speci men Type: BLOOD SPECIMENOrdering Facility: [facility] Address: [address] [place] [address] Performed By: #### 5 8410-2 ####[facility]ATORYCLIA [id number] [address] [facility] Hematocrit (Bld) [Volume fraction] 28.3 % Low 39.0-51.0 [facility] Comment on above: Order Comment: Speci men Type: BLOOD SPECIMENOrdering Facility: [facility] Address: [address] [place] [address] Performed By: #### 5 8410-2 ####[facility]ATORYCLIA [id number] [address] Hemoglobin (Bld) [Mass/Vol] 8.8 g/dL Low 13.0-17.0 [facility] Comment on above: Order Comment: Speci men Type: BLOOD SPECIMENOrdering Facility: [facility] Address: [address] [place] [address] Performed By: #### 5 8410-2 ####[facility]ATORYCLIA [id number] [address] MCH (RBC) [Entitic mass] 27.4 pg Normal 26.0-34.0 [facility] Comment on above: Order Comment: Speci men Type: BLOOD SPECIMENOrdering Facility: [facility] Address: [address] [place] [address] Performed By: #### 5 8410-2 ####[facility]ATORYCLIA [id number] [address] MCHC (RBC) [Mass/Vol] 31.1 g/dL Normal 30.5-36.0 [facility] Comment on above: Order Comment: Speci men Type: BLOOD SPECIMENOrdering Facility: [facility] Address: [address] [place] [address] Performed By: #### 5 8410-2 ####[facility]ATORYCLIA [id number] [address] MCV (RBC) [Entitic vol] 88.2 fL Normal 80.0-100.0 [facility] Comment on above: Order Comment: Speci men Type: BLOOD SPECIMENOrdering Facility: [facility] Address: [address] [place] [address] Performed By: #### 5 8410-2 ####[facility]ATORYCLIA [id number] [address] [place] Nucleated RBC (Bld) [#/Vol] 10*3/uL Normal <0.01 [facility] Comment on above: Order Comment: Speci men Type: BLOOD SPECIMENOrdering Facility: [facility] Address: [address] [place] [address] Performed By: #### 5 8410-2 ####[facility]ATORYCLIA [id number] [address] [place] Platelet mean volume (Bld) [Entitic vol] 9.7 fL Normal 9.0-12.7 [facility] Comment on above: Order Comment: Speci men Type: BLOOD SPECIMENOrdering Facility: [facility] Address: [address] [place] [address] Performed By: #### 5 8410-2 ####[facility]ORYCLIA [id number] [address] [place] Platelets (Bld) [#/Vol] 315 10*3/uL Normal 150-400 [facility] Comment on above: Order Comment: Speci men Type: BLOOD SPECIMENOrdering Facility: [facility] Address: [address] [place] [address] Performed By: #### 5 8410-2 ####[facility]ATORYCLIA [id number] [address] [place] RBC (Bld) [#/Vol] 3.21 10*6/uL Low 4.20-6.00 [facility] Comment on above: Order Comment: Speci men Type: BLOOD SPECIMENOrdering Facility: [facility] Address: [address] [place] [address] Performed By: #### 5 8410-2 ####[facility]ATORYCLIA [id number] [address] [place] WBC (Bld) [#/Vol] 9.18 10*3/uL Normal 3.70-11.00 [facility] Comment on above: Order Comment: Speci men Type: BLOOD SPECIMENOrdering Facility: [facility] Address: [address] [place] [address] Performed By: #### 5 8410-2 ####[facility]ORYCLIA [id number] [address] CONSULT PROGon 07-11-2021 CONSULT PROG Normal [facility] CT BRAIN WO IVCONon 07-12-19 CT BRAIN WO IVCON Normal [facility] Magnesium SerPl-mCncon 07-11 Magnesium [Mass/Vol] 2.1 mg/dL Normal 1.7-2.3 [facility] Comment on above: Order Comment: Speci men Type: BLOOD SPECIMENOrdering Facility: [facility] Address: [address] [place] [address] Performed By: #### 1 9123-9, 2777-1 ####[facility]ATORYCLIA [id number] [address] NURSING PROGon 07-11-2021 NURSING PROG Normal [facility] NURSING PROG Normal [facility] Phosphate SerPl-ncon 07-11 Phosphate [Mass/Vol] 3.4 mg/dL Normal 2.7-4.8 [facility] Comment on above: Order Comment: Speci men Type: BLOOD SPECIMENOrdering Facility: [facility] Address: [address] [place] [address] Performed By: #### 1 9123-9, 2777-1 ####[facility]ATORYCLIA [id number] [address] THERAPY NTon 07-11-2021 THERAPY NT Normal [facility] Vancomycin random [Mass/Vol] on 07-11-2021 Vancomycin [Mass/Vol] 28.6 ug/mL High 10.0-20.0 [facility] Comment on above: Order Comment: Speci men Type: BLOOD SPECIMENOrdering Facility: [facility] Address: [address] [place] [address] Result Comment: Refe rence ranges and high/low indicator flags are provided as general guidelines only. The treating physician must determine appropriate target levels/dosing based on the specific clinical situation. Performed By: #### 4 091-5 ####[facility]ATORYCLIA [id number] [address] aPTT PPPon 07-11-2021 aPTT Coag (PPP) [Time] 62.0 s High 23.0-32.4 [facility] Comment on above: Order Comment: Speci men Type: BLOOD SPECIMENOrdering Facility: [facility] Address: [address] [place] [address] Performed By: #### 1 4979-9 ####[facility]ATORYCLIA [id number] [address] aPTT Coag (PPP) [Time] 52.7 s High 23.0-32.4 [facility] Comment on above: Order Comment: Speci men Type: BLOOD SPECIMENOrdering Facility: [facility] Address: [address] [place] [address] Performed By: #### 1 4979-9 ####[facility]ORYCLIA [id number] [address] aPTT Coag (PPP) [Time] 29.9 s Normal 23.0-32.4 [facility] Comment on above: Order Comment: Speci men Type: BLOOD SPECIMENOrdering Facility: [facility] Address: [address] [place] [address] Performed By: #### 1 4979-9 ####[facility]ATORYCLIA [id number] [address] Basic metabolic 2000 panelon 07-10-2021 Anion gap [Moles/Vol] 14 mmol/L Normal 9-18 [facility] Comment on above: Order Comment: Speci men Type: BLOOD SPECIMENOrdering Facility: [facility] Address: [address] [place] [address] Performed By: #### 1 9123-9, 2777-1, 93522-2 ####[facility]ORATORYCLIA [id number] [place] [address] [place] Calcium [Mass/Vol] 8.5 mg/dL Normal 8.5-10.2 [facility] Comment on above: Order Comment: Speci men Type: BLOOD SPECIMENOrdering Facility: [facility] Address: [address] [place] [address] Performed By: #### 1 9123-9, 2777-1, 15239-3 ####[facility]ORATORYCLIA [id number] [place] [address] [place] Chloride [Moles/Vol] 100 mmol/L Normal 97-105 [facility] Comment on above: Order Comment: Speci men Type: BLOOD SPECIMENOrdering Facility: [facility] Address: [address] [place] [address] Performed By: #### 1 9123-9, 27771, 29269-3 ####[facility]ATORYCLIA [id number] [address] [place] CO2 [Moles/Vol] 27 mmol/L Normal 22-30 [facility] Comment on above: Order Comment: Speci men Type: BLOOD SPECIMENOrdering Facility: [facility] Address: [address] [place] [address] Performed By: #### 1 9123-9, 2771, 07969-1 ####[facility]ORATORYCLIA [id number] [place] [address] [place] Creatinine [Mass/Vol] 0.66 mg/dL Low 0.73-1.22 [facility] Comment on above: Order Comment: Speci men Type: BLOOD SPECIMENOrdering Facility: [facility] Address: [address] [place] [address] Performed By: #### 1 9123-9, 2777-1, 09469-6 ####[facility]ATORYCLIA [id number] [address] [place] ESTIMATED GLOMERULAR FILTRATION RATE 102 mL/min/1.73m??? Normal >=60 [facility] Comment on above: Order Comment: Shira feldman Type: BLOOD SPECIMENOrdering Facility: [facility] Address: [address] [id number] Result Comment: Luzmaria mated Glomerular Filtration Rate [...] GFR. Performed By: #### 1 9123-9, 2777-1, 51697-1 ####[facility]ATORYCLIA [id number] [place] [address] [place] Glucose [Mass/Vol] 93 mg/dL Normal 74-99 [facility] Comment on above: Order Comment: Shira feldman Type: BLOOD SPECIMENOrdering Facility: [facility] Address: [address] [place] [address] Result Comment: The [place] [employer] (ADA) provides guidance for cutoff [...] Standards of Medical Care in Diabetes 2016, [place] [employer]. Diabetes Care. 2016.39(Suppl 1). Performed By: #### 1 9123-9, 2777-1, 99466-7 ####[facility]ATORYCLIA [id number] [place] [address] [place] Potassium [Moles/Vol] 3.5 mmol/L Low 3.7-5.1 [facility] Comment on above: Order Comment: Shira feldman Type: BLOOD SPECIMENOrdering Facility: [facility] Address: [address] [place] [address] Performed By: #### 1 9123-9, 2777-1, 05773-6 ####[facility] LABORATORYCLIA [id number] [address] Sodium [Moles/Vol] 141 mmol/L Normal 136-144 [facility] Comment on above: Order Comment: Speci men Type: BLOOD SPECIMENOrdering Facility: [facility] Address: [address] [place] [address] Performed By: #### 1 9123-9, 2777-, 17710-6 ####[facility] LABORATORYCLIA [id number] [address] Urea nitrogen [Mass/Vol] 11 mg/dL Normal 9-24 [facility] Comment on above: Order Comment: Speci men Type: BLOOD SPECIMENOrdering Facility: [facility] Address: [address] [place] [address] Performed By: #### 1 9123-9, 2777, 88313-5 ####[facility] LABORATORYCLIA [id number] [address] [address] CBC panel Auto (Bld)on 07-10 Erythrocyte distribution width (RBC) [Ratio] 16.2 % High 11.5-15.0 [facility] Comment on above: Order Comment: Speci men Type: BLOOD SPECIMENOrdering Facility: [facility] Address: [address] [place] [address] Performed By: #### 5 8410-2 ####[facility] LABORATORYCLIA [id number] [address] Hematocrit (Bld) [Volume fraction] 30.6 % Low 39.0-51.0 [facility] Comment on above: Order Comment: Speci men Type: BLOOD SPECIMENOrdering Facility: [facility] Address: [address] [place] [address] Performed By: #### 5 8410-2 ####[facility]ORYCLIA [id number] [address] [facility] Hemoglobin (Bld) [Mass/Vol] 9.6 g/dL Low 13.0-17.0 [facility] Comment on above: Order Comment: Speci men Type: BLOOD SPECIMENOrdering Facility: [facility] Address: [address] [place] [address] Performed By: #### 5 8410-2 ####[facility]ORATORYCLIA [id number] [address] MCH (RBC) [Entitic mass] 28.3 pg Normal 26.0-34.0 [facility] Comment on above: Order Comment: Speci men Type: BLOOD SPECIMENOrdering Facility: [facility] Address: [address] [place] [address] Performed By: #### 5 8410-2 ####[facility]ATORYCLIA [id number] [address] MCHC (RBC) [Mass/Vol] 31.4 g/dL Normal 30.5-36.0 [facility] Comment on above: Order Comment: Speci men Type: BLOOD SPECIMENOrdering Facility: [facility] Address: [address] [place] [address] Performed By: #### 5 8410-2 ####[facility]ATORYCLIA [id number] [address] STATES [facility] MCV (RBC) [Entitic vol] 90.3 fL Normal 80.0-100.0 [facility] Comment on above: Order Comment: Speci men Type: BLOOD SPECIMENOrdering Facility: [facility] Address: [address] [place] [address] Performed By: #### 5 8410-2 ####[facility]ORYCLIA [id number] [address] Nucleated RBC (Bld) [#/Vol] 10*3/uL Normal <0.01 [facility] Comment on above: Order Comment: Speci men Type: BLOOD SPECIMENOrdering Facility: [facility] Address: [address] [place], [place] [address] Performed By: #### 5 8410-2 ####[facility]ORYCLIA [id number] [address] Platelet mean volume (Bld) [Entitic vol] 9.7 fL Normal 9.0-12.7 [facility] Comment on above: Order Comment: Speci men Type: BLOOD SPECIMENOrdering Facility: [facility] Address: [address] [place] [address] Performed By: #### 5 8410-2 ####[facility]ATORYCLIA [id number] [address] [place] Platelets (Bld) [#/Vol] 306 10*3/uL Normal 150-400 [facility] Comment on above: Order Comment: Speci men Type: BLOOD SPECIMENOrdering Facility: [facility] Address: [address] [place] [address] Performed By: #### 5 8410-2 ####[facility]ATORYCLIA [id number] [place] [address] [place] RBC (Bld) [#/Vol] 3.39 10*6/uL Low 4.20-6.00 [facility] Comment on above: Order Comment: Speci men Type: BLOOD SPECIMENOrdering Facility: [facility] Address: [address] [place], [place] [address] Performed By: #### 5 8410-2 ####[facility]ATORYCLIA [id number] [address] [place] WBC (Bld) [#/Vol] 9.81 10*3/uL Normal 3.70-11.00 [facility] Comment on above: Order Comment: Speci men Type: BLOOD SPECIMENOrdering Facility: [facility] Address: [address] [place] [address] Performed By: #### 5 8410-2 ####[facility]ATORYCLIA [id number] [place] [address] [place] CONSULTon 07-10-2021 CONSULT Normal [facility] CONSULT Normal [facility] Magnesium SerPl-mCncon 07-10 Magnesium [Mass/Vol] 1.9 mg/dL Normal 1.7-2.3 [facility] Comment on above: Order Comment: Speci men Type: BLOOD SPECIMENOrdering Facility: [facility] Address: [address] [place] [address] Performed By: #### 1 9123-9, 2777-1, 98965-8 ####[facility]ATORYCLIA [id number] [address] [facility] NURSING PROGon 07-10-2021 NURSING PROG Normal [facility] NURSING PROG Normal [facility] NUTRITIONon 07-10-2021 NUTRITION Normal [facility] Phosphate SerPl-mCncon 07-10 Phosphate [Mass/Vol] 3.6 mg/dL Normal 2.7-4.8 [facility] Comment on above: Order Comment: Speci men Type: BLOOD SPECIMENOrdering Facility: [facility] Address: [address] [place] [address] Performed By: #### 1 9123-9, 2777-1, 25262-1 ####[facility]ATORYCLIA [id number] [place] [address] [place] US DVT LOWER BILon US DVT LOWER RAINER Normal [facility] aPTT PPPon 07-10-2021 aPTT Coag (PPP) [Time] 28.8 s Normal 23.0-32.4 [facility] Comment on above: Order Comment: Speci men Type: BLOOD SPECIMENOrdering Facility: [facility] Address: [address] [address] Performed By: #### 1 4979-9 ####[facility]ATORYCLIA [id number] [place] [address] [place] aPTT Coag (PPP) [Time] 28.4 s Normal 23.0-32.4 [facility] Comment on above: Order Comment: Speci men Type: BLOOD SPECIMENOrdering Facility: [facility] Address: [address] [place] [address] Performed By: #### 1 4979-9 ####[facility]ATORYCLIA [id number] [place] [address] [place] ALLIED HEALTHon 07-09-2021 ALLIED HEALTH Normal [facility] Basic metabolic 2000 panelon 07-09-2021 Anion gap [Moles/Vol] 9 mmol/L Normal 9-18 [facility] Comment on above: Order Comment: Speci men Type: BLOOD SPECIMENOrdering Facility: [facility] Address: [address] [place] [address] Performed By: #### 1 9123-9, 2777-1, 12971-3 ####[facility]ATORYCLIA [id number] [place] [address] [place] Calcium [Mass/Vol] 8.3 mg/dL Low 8.5-10.2 [facility] Comment on above: Order Comment: Speci men Type: BLOOD SPECIMENOrdering Facility: [facility] Address: [address] [place] [address] Performed By: #### 1 9123-9, 2777-1, 13677-4 ####[facility]ATORYCLIA [id number] [place] [address] [place] Chloride [Moles/Vol] 100 mmol/L Normal 97-105 [facility] Comment on above: Order Comment: Speci men Type: BLOOD SPECIMENOrdering Facility: [facility] Address: [address] [place] [address] Performed By: #### 1 9123-9, 2777-1, 68169-9 ####[facility]ORATORYCLIA [id number] [place] [address] [place] CO2 [Moles/Vol] 29 mmol/L Normal 22-30 [facility] Comment on above: Order Comment: Speci men Type: BLOOD SPECIMENOrdering Facility: [facility] Address: [address] [address] Performed By: #### 1 9123-9, 2777-1, 98224-0 ####[facility] HOSPITALIA [id number] [address] [place] Creatinine [Mass/Vol] 0.61 mg/dL Low 0.73-1.22 [facility] Comment on above: Order Comment: Shira men Type: BLOOD SPECIMENOrdering Facility: [facility] Address: [address] [address] Performed By: #### 1 9123-9, 2777-, 08642-5 ####[facility] HOSPITALIA [id number] [address] [facility] ESTIMATED GLOMERULAR FILTRATION RATE 104 mL/min/1.73m??? Normal >=60 [facility] Comment on above: Order Comment: Shira feldman Type: BLOOD SPECIMENOrdering Facility: [facility] Address: [address] [place] [address] Result Comment: Luzmaria mated Glomerular Filtration Rate [...] GFR. Performed By: #### 1 9123-9, 2777-, 34357-1 ####[facility] HOSPITALIA [id number] [place] [address] [place] Glucose [Mass/Vol] 106 mg/dL High 74-99 [facility] Comment on above: Order Comment: Shira feldman Type: BLOOD SPECIMENOrdering Facility: [facility] Address: [address] [address] Result Comment: The [place] [employer] (ADA) provides guidance for cutoff [...] Standards of Medical Care in Diabetes 2016, [place] [employer]. Diabetes Care. 2016.39(Suppl 1). Performed By: #### 1 9123-9, 2777-, 60930-4 ####[facility]ORATORYCLIA [id number] [place] [address] [place] Potassium [Moles/Vol] 3.6 mmol/L Low 3.7-5.1 [facility] Comment on above: Order Comment: Shira feldman Type: BLOOD SPECIMENOrdering Facility: [facility] Address: [address] [place] [address] Performed By: #### 1 9123-9, 2777-, 79893-0 ####[facility] HOSPITALCLIA [id number] [place] [address] [place] Sodium [Moles/Vol] 138 mmol/L Normal 136-144 [facility] Comment on above: Order Comment: Shira feldman Type: BLOOD SPECIMENOrdering Facility: [facility] Address: [address] [place] [address] Performed By: #### 1 9123-9, 2777, 74174-3 ####[facility]ATORYCLIA [id number] [place] [address] [place] Urea nitrogen [Mass/Vol] 12 mg/dL Normal 9-24 [facility] Comment on above: Order Comment: Shira feldman Type: BLOOD SPECIMENOrdering Facility: [facility] Address: [address] [place] [address] Performed By: #### 1 9123-9, 2777-, 65651-3 ####[facility]ATORYCLIA [id number] [place] [address] [place] CBC panel Auto (Bld)on 07-09 Erythrocyte distribution width (RBC) [Ratio] 16.2 % High 11.5-15.0 [facility] Comment on above: Order Comment: Speci men Type: BLOOD SPECIMENOrdering Facility: [facility] Address: [address] [place] [address] Performed By: #### 5 8410-2 ####[facility]ATORYCLIA [id number] [address] Hematocrit (Bld) [Volume fraction] 29.0 % Low 39.0-51.0 [facility] Comment on above: Order Comment: Speci men Type: BLOOD SPECIMENOrdering Facility: [facility] Address: [address] [place] [address] Performed By: #### 5 8410-2 ####[facility]ORYCLIA [id number] [address] Hemoglobin (Bld) [Mass/Vol] 8.8 g/dL Low 13.0-17.0 [facility] Comment on above: Order Comment: Speci men Type: BLOOD SPECIMENOrdering Facility: [facility] Address: [address] [place] [address] Performed By: #### 5 8410-2 ####[facility]ATORYCLIA [id number] [address] MCH (RBC) [Entitic mass] 27.0 pg Normal 26.0-34.0 [facility] Comment on above: Order Comment: Speci men Type: BLOOD SPECIMENOrdering Facility: [facility] Address: [address] [place] [address] Performed By: #### 5 8410-2 ####[facility]ATORYCLIA [id number] [address] MCHC (RBC) [Mass/Vol] 30.3 g/dL Low 30.5-36.0 [facility] Comment on above: Order Comment: Speci men Type: BLOOD SPECIMENOrdering Facility: [facility] Address: [address] [address] Performed By: #### 5 8410-2 ####[facility]ATORYCLIA [id number] [address] MCV (RBC) [Entitic vol] 89.0 fL Normal 80.0-100.0 [facility] Comment on above: Order Comment: Speci men Type: BLOOD SPECIMENOrdering Facility: [facility] Address: [address] [place] [address] Performed By: #### 5 8410-2 ####[facility]ATORYCLIA [id number] [address] Nucleated RBC (Bld) [#/Vol] 10*3/uL Normal <0.01 [facility] Comment on above: Order Comment: Speci men Type: BLOOD SPECIMENOrdering Facility: [facility] Address: [address] [place] [address] Performed By: #### 5 8410-2 ####[facility]ORYCLIA [id number] [address] Platelet mean volume (Bld) [Entitic vol] 9.8 fL Normal 9.0-12.7 [facility] Comment on above: Order Comment: Speci men Type: BLOOD SPECIMENOrdering Facility: [facility] Address: [address] [place] [address] Performed By: #### 5 8410-2 ####[facility]ATORYCLIA [id number] [address] Platelets (Bld) [#/Vol] 281 10*3/uL Normal 150-400 [facility] Comment on above: Order Comment: Speci men Type: BLOOD SPECIMENOrdering Facility: [facility] Address: [address] [place] [address] Performed By: #### 5 8410-2 ####[facility]ATORYCLIA [id number] [address] [place] RBC (Bld) [#/Vol] 3.26 10*6/uL Low 4.20-6.00 [facility] Comment on above: Order Comment: Speci men Type: BLOOD SPECIMENOrdering Facility: [facility] Address: [address] [place] [address] Performed By: #### 5 8410-2 ####[facility]ATORYCLIA [id number] [place] [address] [place] WBC (Bld) [#/Vol] 9.12 10*3/uL Normal 3.70-11.00 [facility] Comment on above: Order Comment: Speci men Type: BLOOD SPECIMENOrdering Facility: [facility] Address: [address] [place] [address] Performed By: #### 5 8410-2 ####[facility]ATORYCLIA [id number] [address] [place] CONSULT PROGon 07-09-2021 CONSULT PROG Normal [facility] CONSULT PROG Normal [facility] HISTORY PHYSICALon HISTORY PHYSICAL Normal [facility] Magnesium SerPl-mCncon 07-09 Magnesium [Mass/Vol] 1.9 mg/dL Normal 1.7-2.3 [facility] Comment on above: Order Comment: Speci men Type: BLOOD SPECIMENOrdering Facility: [facility] Address: [address] [place] [address] Performed By: #### 1 9123-9, 2777-1, 95076-7 ####[facility]ATORYCLIA [id number] [address] [place] Phosphate SerPl-mCncon 07-09 Phosphate [Mass/Vol] 3.6 mg/dL Normal 2.7-4.8 [facility] Comment on above: Order Comment: Speci men Type: BLOOD SPECIMENOrdering Facility: [facility] Address: [address] [place] [address] Performed By: #### 1 9123-9, 2777-1, 81932-4 ####[facility]ATORYCLIA [id number] [place] [address] [place] THERAPY NTon 07-09-2021 THERAPY NT Normal [facility] XR ABDOMEN 1V SUPINEon 07-09 XR ABDOMEN 1V SUPINE Normal [facility] ALLIED HEALTHon 07-08-2021 ALLIED HEALTH Normal [...] on above: Performed By: #### 6 00-7 ####[facility]ATORYCLIA [id number] [address] Bacteria identified Cx Nom (Bld) CULTURE, BLOOD: No growth 5 days Normal [facility] Comment on above: Performed By: #### 6 00-7 ####[facility]ORATORYCLIA [id number] [address] [place] Bacteria CSF Culton 07-09-19 22 Bacteria identified Cx Nom (CSF) CULTURE, CSF: No growth 14 days GRAM STAIN: No organisms seen No Polymorphonuclear Leukocytes Few Red Blood Cells Gram stain performed on cytospun specimen. Normal [facility] Comment on above: Performed By: #### 6 06-4 ####[facility]ORATORYCLIA [id number] [place] [address] [place] Bacteria Ur Culton 2 Bacteria identified Cx Nom (U) ORGANISM ID: 1 10,000 -<50,000 CFU/ml Proteus species Insignificant colony count. No further workup. ORGANISM ID: 2 <10,000 CFU/ml Normal urogenital chris Normal [facility] Comment on above: Performed By: #### 6 30-4 ####[facility]ATORYCLIA [id number] [address] [place] Bacteria Wnd Culton 07-09-19 22 Bacteria identified Cx Nom (Wound) ORGANISM ID: 1 Coagulase negative staphylococcus Growth in Enrichment Broth Only No susceptibility testing done. Call lab within 72 hours to initiate work-up if clinically indicated. GRAM STAIN: Account credited. Not performed on this specimen type. [facility] Comment on above: Performed By: #### 6 462-6 ####[facility]ATORYCLIA [id number] [place] [address] [place] Bacteria identified Cx Nom (Wound) ORGANISM ID: 1 Rare Coagulase negative staphylococcus No susceptibility testing done. Call lab within 72 hours to initiate work-up if clinically indicated. GRAM STAIN: Account credited. Not performed on this specimen type. [facility] Comment on above: Performed By: #### 6 462-6 ####[facility]ATORYCLIA [id number] [address] STATES OF [facility] Bacteria identified Cx Nom (Wound) CULTURE, INTRAOPERATIVE HARDWARE: No growth 14 days GRAM STAIN: Account credited. Not performed on this specimen type. Normal [facility] Comment on above: Performed By: #### 6 462-6 ####[facility]ATORYCLIA [id number] [place] [address] [place] Basic metabolic 2000 panelon 07-08-2021 Anion gap [Moles/Vol] 9 mmol/L Normal 9-18 [facility] Comment on above: Order Comment: Speci men Type: BLOOD SPECIMENOrdering Facility: [facility] Address: [address] [place] [address] Performed By: #### 2 4321-2 ####[facility]ATORYCLIA [id number] [place] [address] [place] Calcium [Mass/Vol] 8.5 mg/dL Normal 8.5-10.2 [facility] Comment on above: Order Comment: Speci men Type: BLOOD SPECIMENOrdering Facility: [facility] Address: [address] [address] Performed By: #### 2 4321-2 ####[facility]ATORYCLIA [id number] [address] Chloride [Moles/Vol] 98 mmol/L Normal 97-105 [facility] Comment on above: Order Comment: Speci men Type: BLOOD SPECIMENOrdering Facility: [facility] Address: [address] [place] [address] Performed By: #### 2 4321-2 ####[facility]ATORYCLIA [id number] [address] [facility] CO2 [Moles/Vol] 31 mmol/L High 22-30 [facility] Comment on above: Order Comment: Speci men Type: BLOOD SPECIMENOrdering Facility: [facility] Address: [address] [place] [address] Performed By: #### 2 4321-2 ####[facility]PITALCLIA [id number] [address] Creatinine [Mass/Vol] 0.64 mg/dL Low 0.73-1.22 [facility] Comment on above: Order Comment: Speci men Type: BLOOD SPECIMENOrdering Facility: [facility] Address: [address] [place] [address] Performed By: #### 2 4321-2 ####[facility]ATORYCLIA [id number] [address] ESTIMATED GLOMERULAR FILTRATION RATE 102 mL/min/1.73m??? Normal >=60 [facility] Comment on above: Order Comment: Speci men Type: BLOOD SPECIMENOrdering Facility: [facility] Address: [address] [place] [address] Result Comment: Luzmaria mated Glomerular Filtration Rate [...] actual GFR. Performed By: #### 2 4321-2 ####[facility]ATORYCLIA [id number] [place] [address] [place] Glucose [Mass/Vol] 114 mg/dL High 74-99 [facility] Comment on above: Order Comment: Speci men Type: BLOOD SPECIMENOrdering Facility: [facility] Address: [address] [place] [address] Result Comment: The [place] Diabetes [employer] (ADA) provides guidance for cutoff [...] Standards of Medical Care in Diabetes 2016, [place] [employer]. Diabetes Care. 2016.39(Suppl 1). Performed By: #### 2 4321-2 ####[facility]ATORYCLIA [id number] [place] [address] [place] Potassium [Moles/Vol] 3.4 mmol/L Low 3.7-5.1 [facility] Comment on above: Order Comment: Shira feldman Type: BLOOD SPECIMENOrdering Facility: [facility] Address: [address] [place] [address] Performed By: #### 2 4321-2 ####[facility]ATORYCLIA [id number] [place] [address] [place] Sodium [Moles/Vol] 138 mmol/L Normal 136-144 [facility] Comment on above: Order Comment: Speci men Type: BLOOD SPECIMENOrdering Facility: [facility] Address: [address] [place] [address] Performed By: #### 2 4321-2 ####[facility]ATORYCLIA [id number] [place] [address] [place] Urea nitrogen [Mass/Vol] 14 mg/dL Normal 9-24 [facility] Comment on above: Order Comment: Speci men Type: BLOOD SPECIMENOrdering Facility: [facility] Address: [address] [place] [address] Performed By: #### 2 4321-2 ####[facility]ATORYCLIA [id number] [address] [place] CBC W Auto Differential pane l (Bld)on 07-08-2021 Basophils (Bld) [#/Vol] 0.05 10*3/uL Normal <0.11 [facility] Comment on above: Order Comment: Speci men Type: BLOOD SPECIMENOrdering Facility: [facility] Address: [address] [place] [address] Performed By: #### 5 7021-8 ####[facility]ATORYCLIA [id number] [address] [place] Basophils/100 WBC (Bld) 0.4 % Normal [facility] Comment on above: Order Comment: Speci men Type: BLOOD SPECIMENOrdering Facility: [facility] Address: [address] [place] [address] Performed By: #### 5 7021-8 ####[facility]ORYCLIA [id number] [address] Differential cell count method Nom (Bld) Auto Normal [facility] Comment on above: Order Comment: Speci men Type: BLOOD SPECIMENOrdering Facility: [facility] Address: [address] [place] [address] Performed By: #### 5 7021-8 ####[facility]ORYCLIA [id number] [address] [place] Eosinophils (Bld) [#/Vol] 0.68 10*3/uL High <0.46 [facility] Comment on above: Order Comment: Speci men Type: BLOOD SPECIMENOrdering Facility: [facility] Address: [address] [place] [address] Performed By: #### 5 7021-8 ####[facility]ATORYCLIA [id number] [address] [place] Eosinophils/100 WBC (Bld) 5.4 % Normal [facility] Comment on above: Order Comment: Speci men Type: BLOOD SPECIMENOrdering Facility: [facility] Address: [address] [place] [address] Performed By: #### 5 7021-8 ####[facility]ORYCLIA [id number] [address] STATES [facility] Erythrocyte distribution width (RBC) [Ratio] 16.3 % High 11.5-15.0 [facility] Comment on above: Order Comment: Speci men Type: BLOOD SPECIMENOrdering Facility: [facility] Address: [address] [place] [address] Performed By: #### 5 7021-8 ####[facility]ORYCLIA [id number] [address] Hematocrit (Bld) [Volume fraction] 35.7 % Low 39.0-51.0 [facility] Comment on above: Order Comment: Speci men Type: BLOOD SPECIMENOrdering Facility: [facility] Address: [address] [place] [address] Performed By: #### 5 7021-8 ####[facility]ORYCLIA [id number] [address] [place] Hemoglobin (Bld) [Mass/Vol] 10.8 g/dL Low 13.0-17.0 [facility] Comment on above: Order Comment: Speci men Type: BLOOD SPECIMENOrdering Facility: [facility] Address: [address] [place] [address] Performed By: #### 5 7021-8 ####[facility] LABORATORYCLIA [id number] [address] IMMATURE GRAN % 0.4 % Normal [facility] Comment on above: Order Comment: Speci men Type: BLOOD SPECIMENOrdering Facility: [facility] Address: [address] [place], [place] [address] Performed By: #### 5 7021-8 ####[facility] LABORATORYCLIA [id number] [address] IMMATURE GRAN ABS 0.05 k/uL Normal <0.10 [facility] Comment on above: Order Comment: Speci men Type: BLOOD SPECIMENOrdering Facility: [facility] Address: [address] [place] [address] Performed By: #### 5 7021-8 ####[facility]ORATORYCLIA [id number] [address] Lymphocytes (Bld) [#/Vol] 1.85 10*3/uL Normal 1.00-4.00 [facility] Comment on above: Order Comment: Speci men Type: BLOOD SPECIMENOrdering Facility: [facility] Address: [address] [place] [address] Performed By: #### 5 7021-8 ####[facility]ORATORYCLIA [id number] [address] Lymphocytes/100 WBC (Bld) 14.7 % Normal [facility] Comment on above: Order Comment: Speci men Type: BLOOD SPECIMENOrdering Facility: [facility] Address: [address] [place] [address] Performed By: #### 5 7021-8 ####[facility] LABORATORYCLIA [id number] [address] MCH (RBC) [Entitic mass] 27.1 pg Normal 26.0-34.0 [facility] Comment on above: Order Comment: Speci men Type: BLOOD SPECIMENOrdering Facility: [facility] Address: [address] [place] [address] Performed By: #### 5 7021-8 ####[facility]ATORYCLIA [id number] [address] [place] MCHC (RBC) [Mass/Vol] 30.3 g/dL Low 30.5-36.0 [facility] Comment on above: Order Comment: Speci men Type: BLOOD SPECIMENOrdering Facility: [facility] Address: [address] [place] [address] Performed By: #### 5 7021-8 ####[facility]ORATORYCLIA [id number] [address] [place] MCV (RBC) [Entitic vol] 89.7 fL Normal 80.0-100.0 [facility] Comment on above: Order Comment: Speci men Type: BLOOD SPECIMENOrdering Facility: [facility] Address: [address] [place] [address] Performed By: #### 5 7021-8 ####[facility]ATORYCLIA [id number] [address] [place] Monocytes (Bld) [#/Vol] 0.87 10*3/uL High <0.87 [facility] Comment on above: Order Comment: Speci men Type: BLOOD SPECIMENOrdering Facility: [facility] Address: [address] [place] [address] Performed By: #### 5 7021-8 ####[facility]ORATORYCLIA [id number] [address] OF [facility] Monocytes/100 WBC (Bld) 6.9 % Normal [facility] Comment on above: Order Comment: Speci men Type: BLOOD SPECIMENOrdering Facility: [facility] Address: [address] [place] [address] Performed By: #### 5 7021-8 ####[facility]ORATORYCLIA [id number] [address] [place] Neutrophils (Bld) [#/Vol] 9.05 10*3/uL High 1.45-7.50 [facility] Comment on above: Order Comment: Speci men Type: BLOOD SPECIMENOrdering Facility: [facility] Address: [address] [place] [address] Performed By: #### 5 7021-8 ####[facility]ORYCLIA [id number] [address] [place] Neutrophils/100 WBC (Bld) 72.2 % Normal [facility] Comment on above: Order Comment: Speci men Type: BLOOD SPECIMENOrdering Facility: [facility] Address: [address] [place] [address] Performed By: #### 5 7021-8 ####[facility]ATORYCLIA [id number] [address] [place] Nucleated RBC (Bld) [#/Vol] 10*3/uL Normal <0.01 [facility] Comment on above: Order Comment: Speci men Type: BLOOD SPECIMENOrdering Facility: [facility] Address: [address] [place] [address] Performed By: #### 5 7021-8 ####[facility]ORATORYCLIA [id number] [address] STATES [facility] Nucleated RBC/100 WBC (Bld) [Ratio] 0.0 /100 WBC Normal [facility] Comment on above: Order Comment: Speci men Type: BLOOD SPECIMENOrdering Facility: [facility] Address: [address] [place] [address] Performed By: #### 5 7021-8 ####[facility]ORYCLIA [id number] [address] [place] Platelet mean volume (Bld) [Entitic vol] 9.9 fL Normal 9.0-12.7 [facility] Comment on above: Order Comment: Speci men Type: BLOOD SPECIMENOrdering Facility: [facility] Address: [address] [place] [address] Performed By: #### 5 7021-8 ####[facility]ATORYCLIA [id number] [place] [address] [place] Platelets (Bld) [#/Vol] 335 10*3/uL Normal 150-400 [facility] Comment on above: Order Comment: Speci men Type: BLOOD SPECIMENOrdering Facility: [facility] Address: [address] [place] [address] Performed By: #### 5 7021-8 ####[facility]ATORYCLIA [id number] [address] STATES [place] [facility] RBC (Bld) [#/Vol] 3.98 10*6/uL Low 4.20-6.00 [facility] Comment on above: Order Comment: Speci men Type: BLOOD SPECIMENOrdering Facility: [facility] Address: [address] [place] [address] Performed By: #### 5 7021-8 ####[facility]ORATORYCLIA [id number] [address] [place] [facility] WBC (Bld) [#/Vol] 12.55 10*3/uL High 3.70-11.00 [facility] Comment on above: Order Comment: Speci men Type: BLOOD SPECIMENOrdering Facility: [facility] Address: [address] [place] [address] Performed By: #### 5 7021-8 ####[facility]ORATORYCLIA [id number] [address] CK CREATINE KINASEon 022 CK [Catalytic activity/Vol] 72 U/L Normal 51-298 [facility] Comment on above: Order Comment: Speci men Type: BLOOD SPECIMENOrdering Facility: [facility] Address: [address] [place] [address] Performed By: #### Eileen Valdivia, 03584-1 ####[facility]ORATORYCLIA [id number] [address] CONSULT PROGon 07-08-2021 CONSULT PROG Normal [facility] CONSULT PROG Normal [facility] CSF MANUAL DIFFon 07-08-2021 DIF TTL, CSF 3 cells counted Normal [facility] Comment on above: Order Comment: Speci men Type: CEREBROSPINAL FLUIDOrdering Facility: [facility] Address: [address] [place] [address] Performed By: #### 3 4563-7, [id number] ####[facility]ORATORYCLIA [id number] [address] [place] LYMPH%, CSF 33 % Low 50-90 [facility] Comment on above: Order Comment: Speci men Type: CEREBROSPINAL FLUIDOrdering Facility: [facility] Address: [address] [place] [address] Performed By: #### 3 4563-7, [id number] ####[facility]ATORYCLIA [id number] [address] [place] MONO%, CSF 67 % High 10-50 [facility] Comment on above: Order Comment: Speci men Type: CEREBROSPINAL FLUIDOrdering Facility: [facility] Address: [address] [place] [address] Performed By: #### 3 4563-7, [id number] ####[facility]ORATORYCLIA [id number] [address] [place] CT ABD/PEL W [...] Comment: Speci men Type: CEREBROSPINAL FLUIDOrdering Facility: [facility] Address: [address] [place] [address] Performed By: #### 3 4563-7, [id number] ####[facility]ORATORYCLIA [id number] [address] Clarity (Unsp spec) Clear Normal Clear [facility] Comment on above: Order Comment: Speci men Type: CEREBROSPINAL FLUIDOrdering Facility: [facility] Address: [address] [place] [address] Performed By: #### 3 4563-7, [id number] ####[facility] LABORATORYCLIA [id number] [address] Color (CSF) Colorless Normal Colorless [facility] Comment on above: Order Comment: Speci men Type: CEREBROSPINAL FLUIDOrdering Facility: [facility] Address: [address] [address] Performed By: #### 3 4563-7, [id number] ####[facility]ORATORYCLIA [id number] [address] [place] [facility] Color (Spun CSF) Colorless Normal Colorless [facility] Comment on above: Order Comment: Speci men Type: CEREBROSPINAL FLUIDOrdering Facility: [facility] Address: [address] [place] [address] Performed By: #### 3 4563-7, [id number] ####[facility] LABORATORYCLIA [id number] [address] [place] [facility] CSF TUBE NUMBER [employer] Normal [facility] Comment on above: Order Comment: Speci men Type: CEREBROSPINAL FLUIDOrdering Facility: [facility] Address: [address] [place] [address] Performed By: #### 3 4563-7, [id number] ####[facility] LABORATORYCLIA [id number] [address] [place] RBC Manual cnt (CSF) [#/Vol] 94 cells/uL High 0-5 [facility] Comment on above: Order Comment: Speci men Type: CEREBROSPINAL FLUIDOrdering Facility: [facility] Address: [address] [address] Performed By: #### 3 4563-7, [id number] ####[facility]ORATORYCLIA [id number] [address] WBC Manual cnt (CSF) [#/Vol] 1 cells/uL Normal 0-[address] [place] [address] Comment on above: Order Comment: Speci men Type: CEREBROSPINAL FLUIDOrdering Facility: [facility] Address: [address] [place] [address] Performed By: #### 3 4563-7, [id number] ####[facility]ORATORYCLIA [id number] [address] [place] [facility] Comprehensive metabolic 2000 panelon 07-08-2021 Albumin [Mass/Vol] 3.6 g/dL Low 3.9-4.9 [facility] Comment on above: Order Comment: Speci men Type: BLOOD SPECIMENOrdering Facility: [facility] Address: [address] [place] [address] Performed By: #### Eileen Valdivia, 23476-7 ####[facility]ATORYCLIA [id number] [address] [place] ALP [Catalytic activity/Vol] 125 U/L High 38-113 [facility] Comment on above: Order Comment: Speci men Type: BLOOD SPECIMENOrdering Facility: [facility] Address: [address] [place] [address] Performed By: #### Eileen Valdivia, 58556-1 ####[facility]ORATORYCLIA [id number] [address] ALT With P-5'-P [Catalytic activity/Vol] 24 U/L Normal 10-54 [facility] Comment on above: Order Comment: Speci men Type: BLOOD SPECIMENOrdering Facility: [facility] Address: [address] [place] [address] Performed By: #### Eileen Valdivia, 88494-0 ####[facility]ORATORYCLIA [id number] [address] Anion gap [Moles/Vol] 16 mmol/L Normal 9-18 [facility] Comment on above: Order Comment: Speci men Type: BLOOD SPECIMENOrdering Facility: [facility] Address: [address] [place] [address] Performed By: #### Eileen Valdivia, 13591-8 ####[facility]ATORYCLIA [id number] [address] [place] AST With P-5'-P [Catalytic activity/Vol] 21 U/L Normal 14-40 [facility] Comment on above: Order Comment: Speci men Type: BLOOD SPECIMENOrdering Facility: [facility] Address: [address] [place] [address] Performed By: #### Eileen Valdivia, 83011-5 ####[facility] LABORATORYCLIA [id number] [place] [address] [place] Bilirubin [Mass/Vol] 0.3 mg/dL Normal 0.2-1.3 [facility] Comment on above: Order Comment: Speci men Type: BLOOD SPECIMENOrdering Facility: [facility] Address: [address] [place] [address] Performed By: #### Eileen Valdivia, 56941-2 ####[facility]ORATORYCLIA [id number] [place] [address] [place] Calcium [Mass/Vol] 8.9 mg/dL Normal 8.5-10.2 [facility] Comment on above: Order Comment: Speci men Type: BLOOD SPECIMENOrdering Facility: [facility] Address: [address] [place] [address] Performed By: #### Eileen Valdivia, 00819-7 ####[facility]ORATORYCLIA [id number] [place] [address] [place] Chloride [Moles/Vol] 96 mmol/L Low 97-105 [facility] Comment on above: Order Comment: Speci men Type: BLOOD SPECIMENOrdering Facility: [facility] Address: [address] [place] [address] Performed By: #### Eileen Valdivia, 66678-1 ####[facility]ORATORYCLIA [id number] [place] [address] [place] CO2 [Moles/Vol] 27 mmol/L Normal 22-30 [facility] Comment on above: Order Comment: Speci men Type: BLOOD SPECIMENOrdering Facility: [facility] Address: [address] [place] [address] Performed By: #### Eileen Valdivia, 88684-0 ####[facility]ORATORYCLIA [id number] [address] [place] Creatinine [Mass/Vol] 0.68 mg/dL Low 0.73-1.22 [facility] Comment on above: Order Comment: Shira feldman Type: BLOOD SPECIMENOrdering Facility: [facility] Address: [address] [address] Performed By: #### Eileen Valdivia, 88386-2 ####[facility] HOSPITALIA [id number] [address] ESTIMATED GLOMERULAR FILTRATION RATE 101 mL/min/1.73m??? Normal >=60 [facility] Comment on above: Order Comment: Shira feldman Type: BLOOD SPECIMENOrdering Facility: [facility] Address: [address] [place] [address] Result Comment: Luzmaria mated Glomerular Filtration Rate [...] actual GFR. Performed By: #### Eileen Valdivia, 89584-1 ####[facility] HOSPITALIA [id number] [address] [place] [facility] Glucose [Mass/Vol] 130 mg/dL High 74-99 [facility] Comment on above: Order Comment: Shira feldman Type: BLOOD SPECIMENOrdering Facility: [facility] Address: [address] [place] [address] Result Comment: The [place] Diabetes Association (ADA) provides guidance for cutoff [...] Standards of Medical Care in Diabetes 2016, [place] [employer]. Diabetes Care. 2016.39(Suppl 1). Performed By: #### Eileen Valdivia, 35365-5 ####[facility]FE[facility] LABORATORYCLIA [id number] [address] [place] [facility] Potassium [Moles/Vol] 3.9 mmol/L Normal 3.7-5.1 [facility] Comment on above: Order Comment: Speci men Type: BLOOD SPECIMENOrdering Facility: [facility] Address: [address] [place] [address] Performed By: #### Eileen Valdivia, 58836-6 ####[facility]ORATORYCLIA [id number] [address] [place] [facility] Protein [Mass/Vol] 7.0 g/dL Normal 6.3-8.0 [facility] Comment on above: Order Comment: Speci men Type: BLOOD SPECIMENOrdering Facility: [facility] Address: [address] [place] [address] Performed By: #### Eileen Valdivia, 26466-9 ####[facility]ORATORYCLIA [id number] [address] Sodium [Moles/Vol] 139 mmol/L Normal 136-144 [facility] Comment on above: Order Comment: Speci men Type: BLOOD SPECIMENOrdering Facility: [facility] Address: [address] [place] [address] Performed By: #### Eileen Valdivia, 52273-4 ####[facility]ORATORYCLIA [id number] [address] [place] Urea nitrogen [Mass/Vol] 16 mg/dL Normal 9-24 [facility] Comment on above: Order Comment: Speci men Type: BLOOD SPECIMENOrdering Facility: [facility] Address: [address] [address] Performed By: #### Eileen Valdivia, 45871-1 ####[facility] LABORATORYCLIA [id number] [address] [place] ED NOTEon 07-08-2021 ED NOTE HNO ID: [id number] Author: Lenora James RN Service: Emergency Medicine Author Type: Registered Nurse Type: ED Notes Filed: 07/08/2021 5:03 PM Note Text: Pt to OR with surgical team [facility] ED NOTE HNO ID: [id number] Author: Lenora James RN Service: Emergency Medicine Author Type: Registered Nurse Type: ED Notes Filed: 07/08/2021 4:50 PM Note Text: OR team to get pt [facility] ED NOTE HNO ID: [id number] Author: Lenora James RN Service: Emergency Medicine Author Type: Registered Nurse Type: ED Notes Filed: 07/08/2021 4:50 PM Note Text: [facility] ED NOTE HNO ID: [id number] Author: Lenora James RN Service: Emergency Medicine Author Type: Registered Nurse Type: ED Notes Filed: 07/08/2021 4:50 PM Note Text: Spoke with presurg; pt to go to OR now [facility] ED NOTE HNO ID: [id number] Author: Lenora James RN Service: Emergency Medicine Author Type: Registered Nurse Type: ED Notes Filed: 07/08/2021 4:12 PM Note Text: Neurosurgery at beside [facility] ED NOTE HNO ID: [id number] Author: Lenora James RN Service: Emergency Medicine Author Type: Registered Nurse Type: ED Notes Filed: 07/08/2021 2:35 PM Note Text: respiratory aware of pt breathing treatments [facility] ED NOTE HNO ID: [id number] Author: Lisa Woo RN Service: ? Author Type: Registered Nurse Type: ED Notes Filed: 07/08/2021 2:20 PM Note Text: Xray notified pt is ready. [facility] ED NOTE HNO ID: [id number] Author: Lenora James RN Service: Emergency Medicine Author Type: Registered Nurse Type: ED Notes Filed: 07/08/2021 12:14 PM Note Text: CT notified regarding imaging orders placed [facility] ED NOTE Normal [facility] ED PROV NOTEon 07-08-2021 ED PROV NOTE Normal [facility] Glucose CSF-mCncon 2 Glucose (CSF) [Mass/Vol] 88 mg/dL High 40-70 [facility] Comment on above: Order Comment: Shira feldman Type: CEREBROSPINAL FLUIDOrdering Facility: [facility] Address: [address] [place] [address] Result Comment: Lumb ar CSF glucose values of healthy patients are approximately 60% of the plasma values and must always be compared with a concurrently measured plasma value for adequate clinical interpretation.References: 1. Glucose HK (GLUC3) [package insert V 12.0 French]. [employer], [place], [place]. September 2015. 2. Michelle Moore, Loki HGarfield (2015). Chapter 7: Glucose and Lactate. Marianela Rothman.(eds.), Cerebrospinal Fluid in Clinical Neurology. [place]: [employer]. Performed By: #### 2 880-3, 2342-4 ####[facility]ORATORYCLIA [id number] [address] HIGH SENSITIVITY TROPONIN To n 07-08-2021 HIGH SENSITIVITY TAMIKO 27 ng/L High <12 [facility] Comment on above: Order Comment: Shira feldman Type: BLOOD SPECIMENOrdering Facility: [facility] Address: [address] [place] [address] Result Comment: When assessing risk for acute [...] day MACE. Performed By: #### H STNT ####[facility]ORATORYCLIA [id number] [address] HIGH SENSITIVITY TAMIKO 36 ng/L High <12 [facility] Comment on above: Order Comment: Shira feldman Type: BLOOD SPECIMENOrdering Facility: [facility] Address: [address] [place], [place] [address] Result Comment: When assessing risk for acute [...] day MACE. Performed By: #### H STNT ####[facility]ORATORYCLIA [id number] [address] [place] [facility] HISTORY PHYSICALon 2 HISTORY PHYSICAL Normal [facility] NURSING PROGon 07-08-2021 NURSING PROG Normal [facility] OPERATIVE NOon 07-08-2021 OPERATIVE NO Normal [facility] Prot CSF-mCncon 07-08-2021 Protein (CSF) [Mass/Vol] 33 mg/dL Normal 15-45 [facility] Comment on above: Order Comment: Speci men Type: CEREBROSPINAL FLUIDOrdering Facility: [facility] Address: [address] [place] [address] Performed By: #### 2 880-3, 2342-4 ####[facility]ORATORYCLIA [id number] [address] [place] [facility] SARS-CoV-2 RNA Resp Ql MEGAN+p robeon 07-08-2021 SARS-CoV-2 (COVID-19) RNA MEGAN+probe Ql (Resp) COVID 19 RESULT: SARS-CoV-2 (Agent of COVID-19) Not Detected by RT-PCR or equivalent method. This test has been authorized by FDA under an Emergency Use Authorization (EUA). Normal [facility] Comment on above: Performed By: #### 9 4500-6 ####[facility]ORATORYCLIA [id number] [address] [place] STAPH AUREUS PCRon 2 S. aureus and MRSA panel MEGAN+probe (Nose) Normal Negative [facility] Comment on above: Order Comment: Speci men Type: SWAB OF INTERNAL NOSEOrdering Facility: [facility] Address: [address] [address] Result Comment: Nega tive for Staphylococcus aureus by PCR.Negative for MRSA by PCR Performed By: #### S APCR ####[facility] LABORATORYCLIA [id number] [address] Urinalysis complete panel (U )on 07-08-2021 Bacteria LM.HPF (Urine sed) [#/Area] Few Abnormal None Seen [facility] Comment on above: Order Comment: Speci men Type: URINE SPECIMENOrdering Facility: [facility] Address: [address] [place] [address] Performed By: #### 2 4356-8 ####[facility]ORATORYCLIA [id number] [address] Bilirubin Ql (U) Negative Normal Negative [facility] Comment on above: Order Comment: Speci men Type: URINE SPECIMENOrdering Facility: [facility] Address: [address] [place] [address] Performed By: #### 2 4356-8 ####[facility]ORATORYCLIA [id number] [address] Clarity (Unsp spec) Turbid Abnormal Clear [facility] Comment on above: Order Comment: Speci men Type: URINE SPECIMENOrdering Facility: [facility] Address: [address] [place] [address] Performed By: #### 2 4356-8 ####[facility]ORATORYCLIA [id number] [address] Color (U) Light Yellow Normal yellow [facility] Comment on above: Order Comment: Speci men Type: URINE SPECIMENOrdering Facility: [facility] Address: [address] [place] [address] Performed By: #### 2 4356-8 ####[facility]ORYCLIA [id number] [address] Glucose Test strip (U) [Mass/Vol] Negative Normal Negative [facility] Comment on above: Order Comment: Speci men Type: URINE SPECIMENOrdering Facility: [facility] Address: [address] [place] [address] Performed By: #### 2 4356-8 ####[facility]ORATORYCLIA [id number] [address] STATES [facility] Hemoglobin Ql (U) Negative Normal Negative [facility] Comment on above: Order Comment: Speci men Type: URINE SPECIMENOrdering Facility: [facility] Address: [address] [place] [address] Performed By: #### 2 4356-8 ####[facility] LABORATORYCLIA [id number] [address] Hyaline casts (Urine sed) [#/Area] 1-3 /LPF Abnormal 0 /LPF [facility] [facility] Comment on above: Order Comment: Speci men Type: URINE SPECIMENOrdering Facility: [facility] Address: [address] [place] [address] Performed By: #### 2 4356-8 ####[facility] LABORATORYCLIA [id number] [address] [place] Ketones Ql (U) Negative Normal Negative [facility] Comment on above: Order Comment: Speci men Type: URINE SPECIMENOrdering Facility: [facility] Address: [address] [place] [address] Performed By: #### 2 4356-8 ####[facility]ORATORYCLIA [id number] [address] STATES [facility] Leukocyte esterase Test strip Ql (U) Negative Normal Negative [facility] Comment on above: Order Comment: Speci men Type: URINE SPECIMENOrdering Facility: [facility] Address: [address] [place] [address] Performed By: #### 2 4356-8 ####[facility]ORATORYCLIA [id number] [place] [address] [place] Nitrite Ql (U) Negative Normal Negative [facility] Comment on above: Order Comment: Speci men Type: URINE SPECIMENOrdering Facility: [facility] Address: [address] [place] [address] Performed By: #### 2 4356-8 ####[facility]ORATORYCLIA [id number] [address] pH (U) 5.0 [pH] Normal 5.0-8.0 [facility] Comment on above: Order Comment: Speci men Type: URINE SPECIMENOrdering Facility: [facility] Address: [address] [place] [address] Performed By: #### 2 4356-8 ####[facility]ATORYCLIA [id number] [address] Protein (U) [Mass/Vol] Negative Normal Negative [facility] Comment on above: Order Comment: Speci men Type: URINE SPECIMENOrdering Facility: [facility] Address: [address] [place] [address] Performed By: #### 2 4356-8 ####[facility]ATORYCLIA [id number] [address] STATES [facility] RBC LM.HPF (Urine sed) [#/Area] 11-25 /HPF Abnormal 0-3 /HPF [facility] Comment on above: Order Comment: Speci men Type: URINE SPECIMENOrdering Facility: [facility] Address: [address] [place] [address] Performed By: #### 2 4356-8 ####[facility]ORATORYCLIA [id number] [address] Specific gravity (U) [Rel density] 1.018 Normal 1.005-1.030 [facility] Comment on above: Order Comment: Speci men Type: URINE SPECIMENOrdering Facility: [facility] Address: [address] [place] [address] Performed By: #### 2 4356-8 ####[facility]ATORYCLIA [id number] [address] Urobilinogen Ql (U) Normal Normal Negative [facility] Comment on above: Order Comment: Speci men Type: URINE SPECIMENOrdering Facility: [facility] Address: [address] [place] [address] Performed By: #### 2 4356-8 ####[facility]ATORYCLIA [id number] [address] WBC LM.HPF (Urine sed) [#/Area] /[HPF] Abnormal 0-5 /HPF [facility] Comment on above: Order Comment: Speci men Type: URINE SPECIMENOrdering Facility: [facility] Address: [address] [place] [address] Performed By: #### 2 4356-8 ####[facility]ORATORYCLIA [id number] [address] OF [facility] Vancomycin random [Mass/Vol] on 07-08-2021 Vancomycin [Mass/Vol] 31.0 ug/mL High 10.0-20.0 [facility] Comment on above: Order Comment: Speci men Type: BLOOD SPECIMENOrdering Facility: [facility] Address: [address] [place] [address] Result Comment: Refe rence ranges and high/low indicator flags are provided as general guidelines only. The treating physician must determine appropriate target levels/dosing based on the specific clinical situation. Performed By: #### 4 091-5 ####[facility]ORATORYCLIA [id number] [address] OF [facility] XR ABD 2V SUPINE W UPR/DECUB /CTLon [...] Hospital HISTORY PHYSICALon HISTORY PHYSICAL HNO ID: [id number] Author: Amy Beltran MD Service: ? Author Type: Physician Type: HANDP Filed: 06/30/2021 6:42 PM Note Text: Connected Care Unit History and Physical Facility: [facility] Level of Care: Skilled Admission Date: June [...] regarding the above plan. Total time spent [id number] and/or counseling and coordinating care on the skilled care unit for patient was approximately 45 minutes SUBJECTIVE (HISTORY) Chief Complaint: Confusion, infection, blood clot. Andrew Sifuentes is being seen today for [facility] admission AND management of weakness, tube feed, infected retroperitoneal infection and seizure. HPI: This is a 71 year old male who presents from [facility] with primary admitting diagnosis of [...] CT brain concerning for hydrocephalus. 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 Normal [facility] Basic metabolic 2000 panelon 06-28-2021 Anion gap [Moles/Vol] 7 mmol/L Low 9-18 [facility] Comment on above: Order Comment: Speci men Type: BLOOD SPECIMENOrdering Facility: [facility] Address: [address] [place] [address] Performed By: #### 2 43205-08, ####[facility]ORATORYCLIA [id number] [place] [address] [place] Calcium [Mass/Vol] 8.8 mg/dL Normal 8.5-10.2 [facility] Comment on above: Order Comment: Speci men Type: BLOOD SPECIMENOrdering Facility: [facility] Address: [address] [place] [address] Performed By: #### 2 4320-06, ####[facility]ORATORYCLIA [id number] [place] [address] [place] Chloride [Moles/Vol] 103 mmol/L Normal 97-105 [facility] Comment on above: Order Comment: Speci men Type: BLOOD SPECIMENOrdering Facility: [facility] Address: [address] [place] [address] Performed By: #### 2 2, ####[facility]ORATORYCLIA [id number] [place] [address] [place] CO2 [Moles/Vol] 28 mmol/L Normal 22-30 [facility] Comment on above: Order Comment: Speci men Type: BLOOD SPECIMENOrdering Facility: [facility] Address: [address] Performed By: #### 2 4321-2, ####[facility]ORATORYCLIA [id number] [place] [id number] [place] Creatinine [Mass/Vol] 0.57 mg/dL Low 0.73-1.22 [facility] Comment on above: Order Comment: Shira feldman Type: BLOOD SPECIMENOrdering Facility: [facility] Address: [address] [place] [address] Performed By: #### 2 4322, ####[facility]ORATORYCLIA [id number] [address] [place] GFR/1.73 sq M.predicted MDRD (S/P/Bld) [Vol rate/Area] mL/min/{1.73_m2} Normal [facility] Comment on above: Order Comment: Shira feldman Type: BLOOD SPECIMENOrdering Facility: [facility] Address: [address] [place] [address] Result Comment: >60e GFR (Estimated GFR) Units [...] actual GFR. Performed By: #### 2 432-2, ####[facility]ORATORYCLIA [id number] [place] [id number] [place] Glucose [Mass/Vol] 120 mg/dL High 74-99 [facility] Comment on above: Order Comment: Shira francia Type: BLOOD SPECIMENOrdering Facility: [facility] Address: [address] [address] Result Comment: The [place] [employer] (ADA) provides guidance for cutoff [...] Standards of Medical Care in Diabetes 2016, [place] [employer]. Diabetes Care. 2016.39(Suppl 1). Performed By: #### 2 ####[facility]ORATORYCLIA [id number] [place] [address] [place] Potassium [Moles/Vol] 3.8 mmol/L Normal 3.7-5.1 [facility] Comment on above: Order Comment: Speci men Type: BLOOD SPECIMENOrdering Facility: [facility] Address: [address] [place] [address] Performed By: #### 2 ####[facility]ORATORYCLIA [id number] [place] [address] [place] Sodium [Moles/Vol] 138 mmol/L Normal 136-144 [facility] Comment on above: Order Comment: Speci men Type: BLOOD SPECIMENOrdering Facility: [facility] Address: [address] [place] [address] Performed By: #### 2 ####[facility]ORATORYCLIA [id number] [place] [address] [place] Urea nitrogen [Mass/Vol] 24 mg/dL Normal 9-24 [facility] Comment on above: Order Comment: Speci men Type: BLOOD SPECIMENOrdering Facility: [facility] Address: [address] [place] [address] Performed By: #### 2 ####[facility]ORATORYCLIA [id number] [address] [place] CASE MANAGEMon 06-28-2021 CASE MANAGEM Normal [facility] CBC panel Auto (Bld)on 06-28 Erythrocyte distribution width (RBC) [Ratio] 15.6 % High 11.5-15.0 [facility] Comment on above: Order Comment: Speci men Type: BLOOD SPECIMENOrdering Facility: [facility] Address: [address] [place] [address] Performed By: #### 5 8410-2 ####[facility]ORATORYCLIA [id number] [address] Hematocrit (Bld) [Volume fraction] 30.5 % Low 39.0-51.0 [facility] Comment on above: Order Comment: Speci men Type: BLOOD SPECIMENOrdering Facility: [facility] Address: [address] [place] [address] Performed By: #### 5 8410-2 ####[facility]ORATORYCLIA [id number] [address] Hemoglobin (Bld) [Mass/Vol] 9.4 g/dL Low 13.0-17.0 [facility] Comment on above: Order Comment: Speci men Type: BLOOD SPECIMENOrdering Facility: [facility] Address: [address] [place] [address] Performed By: #### 5 8410-2 ####[facility]ORATORYCLIA [id number] [address] MCH (RBC) [Entitic mass] 27.8 pg Normal 26.0-34.0 [facility] Comment on above: Order Comment: Speci men Type: BLOOD SPECIMENOrdering Facility: [facility] Address: [address] [place] [address] Performed By: #### 5 8410-2 ####[facility]ORATORYCLIA [id number] [address] [place] MCHC (RBC) [Mass/Vol] 30.8 g/dL Normal 30.5-36.0 [facility] Comment on above: Order Comment: Speci men Type: BLOOD SPECIMENOrdering Facility: [facility] Address: [address] [place], [place] [address] Performed By: #### 5 8410-2 ####[facility]ORATORYCLIA [id number] [address] MCV (RBC) [Entitic vol] 90.2 fL Normal 80.0-100.0 [facility] Comment on above: Order Comment: Speci men Type: BLOOD SPECIMENOrdering Facility: [facility] Address: [address] [place], [place] [address] Performed By: #### 5 8410-2 ####[facility]ATORYCLIA [id number] [address] STATES OF [facility] Nucleated RBC (Bld) [#/Vol] 10*3/uL Normal <0.01 [facility] Comment on above: Order Comment: Speci men Type: BLOOD SPECIMENOrdering Facility: [facility] Address: [address] [place], [place] [address] Performed By: #### 5 8410-2 ####[facility]ATORYCLIA [id number] [address] Platelet mean volume (Bld) [Entitic vol] 9.9 fL Normal 9.0-12.7 [facility] Comment on above: Order Comment: Speci men Type: BLOOD SPECIMENOrdering Facility: [facility] Address: [address] [place], [place] [address] Performed By: #### 5 8410-2 ####[facility]ORATORYCLIA [id number] [address] Platelets (Bld) [#/Vol] 333 10*3/uL Normal 150-400 [facility] Comment on above: Order Comment: Speci men Type: BLOOD SPECIMENOrdering Facility: [facility] Address: [address] [place], [place] [address] Performed By: #### 5 8410-2 ####[facility]ORATORYCLIA [id number] [place] [address] [place] RBC (Bld) [#/Vol] 3.38 10*6/uL Low 4.20-6.00 [facility] Comment on above: Order Comment: Speci men Type: BLOOD SPECIMENOrdering Facility: [facility] Address: [address] [place] [address] Performed By: #### 5 8410-2 ####[facility]ORATORYCLIA [id number] [address] STATES [place] [facility] WBC (Bld) [#/Vol] 9.71 10*3/uL Normal 3.70-11.00 [facility] Comment on above: Order Comment: Speci men Type: BLOOD SPECIMENOrdering Facility: [facility] Address: [address] [place] [address] Performed By: #### 5 8410-2 ####[facility]ORATORYCLIA [id number] [address] [place] CNDSon 06-28-2021 CNDS Normal [facility] CONSULT PROGon 06-28-2021 CONSULT PROG Normal [facility] Magnesium SerPl-mCncon 06-28 Magnesium [Mass/Vol] 2.2 mg/dL Normal 1.7-2.3 [facility] Comment on above: Order Comment: Speci men Type: BLOOD SPECIMENOrdering Facility: [facility] Address: [address] [place] [address] Performed By: #### 2 4321-2, 62091-9 ####[facility]ORATORYCLIA [id number] [address] [place] Vancomycin random [Mass/Vol] on 06-28-2021 Vancomycin [Mass/Vol] 23.0 ug/mL High 10.0-20.0 [facility] Comment on above: Order Comment: Speci men Type: BLOOD SPECIMENOrdering Facility: [facility] Address: [address] [place] [address] Result Comment: Refe rence ranges and high/low indicator flags are provided as general guidelines only. The treating physician must determine appropriate target levels/dosing based on the specific clinical situation. Performed By: #### 4 091-5 ####[facility]ORATORYCLIA [id number] [place] [address] [place] ALLIED HEALTHon 06-27-2021 ALLIED HEALTH Normal [facility] Basic metabolic 2000 panelon 06-27-2021 Anion gap [Moles/Vol] 10 mmol/L Normal 9-18 [facility] Comment on above: Order Comment: Speci men Type: BLOOD SPECIMENOrdering Facility: [facility] Address: [address] [place] [address] Performed By: #### 2 4321-2, ####[facility]ORATORYCLIA [id number] [place] [address] [place] Calcium [Mass/Vol] 8.8 mg/dL Normal 8.5-10.2 [facility] Comment on above: Order Comment: Speci men Type: BLOOD SPECIMENOrdering Facility: [facility] Address: [address] [place] [address] Performed By: #### 2 4320-2, ####[facility]ATORYCLIA [id number] [place] [address] [place] Chloride [Moles/Vol] 104 mmol/L Normal 97-105 [facility] Comment on above: Order Comment: Speci men Type: BLOOD SPECIMENOrdering Facility: [facility] Address: [address] [address] Performed By: #### 2 4321-2, ####[facility]ATORYCLIA [id number] [place] [address] [place] CO2 [Moles/Vol] 26 mmol/L Normal 22-30 [facility] Comment on above: Order Comment: Speci men Type: BLOOD SPECIMENOrdering Facility: [facility] Address: [address] [address] Performed By: #### 2 432-, ####[facility]ORATORYCLIA [id number] [place] [address] [place] Creatinine [Mass/Vol] 0.57 mg/dL Low 0.73-1.22 [facility] Comment on above: Order Comment: [facility] Type: BLOOD SPECIMENOrdering Facility: [facility] Address: [address] [place], [place] [address] Performed By: #### 2 432-, ####[facility]ATORYCLIA [id number] [place] [address] [place] GFR/1.73 sq M.predicted MDRD (S/P/Bld) [Vol rate/Area] mL/min/{1.73_m2} Normal [facility] Comment on above: Order Comment: [facility] Type: BLOOD SPECIMENOrdering Facility: [facility] Address: [address] [place] [address] Result Comment: >60e GFR (Estimated GFR) Units [...] actual GFR. Performed By: #### 2 432-, ####[facility]ATORYCLIA [id number] [place] [address] [place] Glucose [Mass/Vol] 133 mg/dL High 74-99 [facility] Comment on above: Order Comment: [facility] Type: BLOOD SPECIMENOrdering Facility: [facility] Address: [address] [place], [place] [address] Result Comment: The [place] Diabetes Association (ADA) provides guidance for cutoff [...] Standards of Medical Care in Diabetes 2016, [place] [employer]. Diabetes Care. 2016.39(Suppl 1). Performed By: #### 2 4320-06, ####[facility]ATORYCLIA [id number] [place] [address] [place] Potassium [Moles/Vol] 4.2 mmol/L Normal 3.7-5.1 [facility] Comment on above: Order Comment: Speci men Type: BLOOD SPECIMENOrdering Facility: [facility] Address: [address] [place] [address] Performed By: #### 2 4320-06, ####[facility]ORATORYCLIA [id number] [address] STATES [facility] Sodium [Moles/Vol] 140 mmol/L Normal 136-144 [facility] Comment on above: Order Comment: Shira feldman Type: BLOOD SPECIMENOrdering Facility: [facility] Address: [address] [place] [address] Performed By: #### 2 4320-06, ####[facility]ATORYCLIA [id number] [place] [id number] [place] Urea nitrogen [Mass/Vol] 24 mg/dL Normal 9-24 [facility] Comment on above: Order Comment: Johni men Type: BLOOD SPECIMENOrdering Facility: [facility] Address: [address] [place] [address] Performed By: #### 2 ####[facility]ATORYCLIA [id number] [place] [id number] [facility] [place] CASE MANAGEMon 06-27-2021 CASE MANAGEM Normal [facility] CBC panel Auto (Bld)on 06-27 Erythrocyte distribution width (RBC) [Ratio] 15.8 % High 11.5-15.0 [facility] Comment on above: Order Comment: Speci men Type: BLOOD SPECIMENOrdering Facility: [facility] Address: [address] [place] [address] Performed By: #### 5 8410-2 ####[facility]ATORYCLIA [id number] [address] Hematocrit (Bld) [Volume fraction] 31.4 % Low 39.0-51.0 [facility] Comment on above: Order Comment: Speci men Type: BLOOD SPECIMENOrdering Facility: [facility] Address: [address] [place] [address] Performed By: #### 5 8410-2 ####[facility]ATORYCLIA [id number] [address] STATES [place] [facility] Hemoglobin (Bld) [Mass/Vol] 9.3 g/dL Low 13.0-17.0 [facility] Comment on above: Order Comment: Speci men Type: BLOOD SPECIMENOrdering Facility: [facility] Address: [address] [place] [address] Performed By: #### 5 8410-2 ####[facility]ORATORYCLIA [id number] [address] STATES [facility] MCH (RBC) [Entitic mass] 27.0 pg Normal 26.0-34.0 [facility] Comment on above: Order Comment: Speci men Type: BLOOD SPECIMENOrdering Facility: [facility] Address: [address] [place] [address] Performed By: #### 5 8410-2 ####[facility]ATORYCLIA [id number] [address] [place] MCHC (RBC) [Mass/Vol] 29.6 g/dL Low 30.5-36.0 [facility] Comment on above: Order Comment: Speci men Type: BLOOD SPECIMENOrdering Facility: [facility] Address: [address] [address] Performed By: #### 5 8410-2 ####[facility]ATORYCLIA [id number] [address] MCV (RBC) [Entitic vol] 91.3 fL Normal 80.0-100.0 [facility] Comment on above: Order Comment: Speci men Type: BLOOD SPECIMENOrdering Facility: [facility] Address: [address] [address] Performed By: #### 5 8410-2 ####[facility]ORATORYCLIA [id number] [address] [place] Nucleated RBC (Bld) [#/Vol] 10*3/uL Normal <0.01 [facility] Comment on above: Order Comment: Speci men Type: BLOOD SPECIMENOrdering Facility: [facility] Address: [address] [place] [address] Performed By: #### 5 8410-2 ####[facility]ORATORYCLIA [id number] [address] Platelet mean volume (Bld) [Entitic vol] 10.3 fL Normal 9.0-12.7 [facility] Comment on above: Order Comment: Speci men Type: BLOOD SPECIMENOrdering Facility: [facility] Address: [address] Performed By: #### 5 8410-2 ####[facility]ATORYCLIA [id number] [address] Platelets (Bld) [#/Vol] 359 10*3/uL Normal 150-400 [facility] Comment on above: Order Comment: Speci men Type: BLOOD SPECIMENOrdering Facility: [facility] Address: [address] [place] [address] Performed By: #### 5 8410-2 ####[facility]ATORYCLIA [id number] [address] [place] RBC (Bld) [#/Vol] 3.44 10*6/uL Low 4.20-6.00 [facility] Comment on above: Order Comment: Speci men Type: BLOOD SPECIMENOrdering Facility: [facility] Address: [address] [place] [address] Performed By: #### 5 8410-2 ####[facility]ATORYCLIA [id number] [address] OF [facility] WBC (Bld) [#/Vol] 10.73 10*3/uL Normal 3.70-11.00 [facility] Comment on above: Order Comment: Speci men Type: BLOOD SPECIMENOrdering Facility: [facility] Address: [address] [place] [address] Performed By: #### 5 8410-2 ####[facility]ATORYCLIA [id number] [address] Magnesium SerPl-mCncon 06-27 Magnesium [Mass/Vol] 2.2 mg/dL Normal 1.7-2.3 [facility] Comment on above: Order Comment: Speci men Type: BLOOD SPECIMENOrdering Facility: [facility] Address: [address] [place] [address] Performed By: #### 2 4321-2, 51101-8 ####[facility]ATORYCLIA [id number] [address] NT-proBNP SerPl-mCncon 06-27 Natriuretic peptide.B prohormone N-Terminal [Mass/Vol] 184 pg/mL High <125 [facility] Comment on above: Order Comment: Speci men Type: BLOOD SPECIMENOrdering Facility: [facility] Address: [address] [place] [address] Performed By: #### 3 3762-6 ####[facility]ATORYCLIA [id number] [place] [id number] [place] NUTRITIONon 06-27-2021 NUTRITION [...] Comment: Speci men Type: BLOOD SPECIMENOrdering Facility: [facility] Address: [address] [place] [address] Performed By: #### 1 9123-9, 74327-4 ####[facility]ORATORYCLIA [id number] [place] [address] [place] Calcium [Mass/Vol] 8.7 mg/dL Normal 8.5-10.2 [facility] Comment on above: Order Comment: Speci men Type: BLOOD SPECIMENOrdering Facility: [facility] Address: [address] [place] [address] Performed By: #### 1 9123-9, 22049-5 ####[facility] LABORATORYCLIA [id number] [place] [address] [place] Chloride [Moles/Vol] 105 mmol/L Normal 97-105 [facility] Comment on above: Order Comment: Speci men Type: BLOOD SPECIMENOrdering Facility: [facility] Address: [address] [place] [address] Performed By: #### 1 9123-9, 03344-8 ####[facility]ATORYCLIA [id number] [place] [address] [place] CO2 [Moles/Vol] 26 mmol/L Normal 22-30 [facility] Comment on above: Order Comment: Speci men Type: BLOOD SPECIMENOrdering Facility: [facility] Address: [address] [place] [address] Performed By: #### 1 9123-9, 68452-9 ####[facility] LABORATORYCLIA [id number] [place] [address] [place] Creatinine [Mass/Vol] 0.56 mg/dL Low 0.73-1.22 [facility] Comment on above: Order Comment: Shira feldman Type: BLOOD SPECIMENOrdering Facility: [facility] Address: [address] [id number] Performed By: #### 1 9123-9, 54002-4 ####[facility]ATORYCLIA [id number] [place] [address] [place] GFR/1.73 sq M.predicted MDRD (S/P/Bld) [Vol rate/Area] mL/min/{1.73_m2} Normal [facility] Comment on above: Order Comment: Johncara feldman Type: BLOOD SPECIMENOrdering Facility: [facility] Address: [address] [place] [address] Result Comment: >60e GFR (Estimated GFR) Units [...] actual GFR. Performed By: #### 1 9123-9, 02660-0 ####[facility]ATORYCLIA [id number] [place] [address] [place] Glucose [Mass/Vol] 134 mg/dL High 74-99 [facility] Comment on above: Order Comment: Shira feldman Type: BLOOD SPECIMENOrdering Facility: [facility] Address: [address] [phone] Result Comment: The [place] Diabetes [employer] (ADA) provides guidance for cutoff [...] Standards of Medical Care in Diabetes 2016, [place] [employer]. Diabetes Care. 2016.39(Suppl 1). Performed By: #### 1 9123-9, 06453-0 ####[facility]ATORYCLIA [id number] [address] STATES OF [facility] Potassium [Moles/Vol] 3.8 mmol/L Normal 3.7-5.1 [facility] Comment on above: Order Comment: Shira feldman Type: BLOOD SPECIMENOrdering Facility: [facility] Address: [address] [place] [address] Performed By: #### 1 9123-9, 34436-2 ####[facility]ITALCLIA [id number] [address] Sodium [Moles/Vol] 140 mmol/L Normal 136-144 [facility] Comment on above: Order Comment: Johni francia Type: BLOOD SPECIMENOrdering Facility: [facility] Address: [address] [place] [address] Performed By: #### 1 91239, 77152-2 ####[facility]ATORYCLIA [id number] [address] Urea nitrogen [Mass/Vol] 24 mg/dL Normal 9-24 [facility] Comment on above: Order Comment: Speci men Type: BLOOD SPECIMENOrdering Facility: [facility] Address: [address] [place] [address] Performed By: #### 1 91239, 35256-3 ####[facility]ATORYCLIA [id number] [address] CBC panel Auto (Bld)on 06-26 Erythrocyte distribution width (RBC) [Ratio] 15.9 % High 11.5-15.0 [facility] Comment on above: Order Comment: Speci men Type: BLOOD SPECIMENOrdering Facility: [facility] Address: [address] [place] [address] Performed By: #### 5 8410-2 ####[facility]ATORYCLIA [id number] [address] Hematocrit (Bld) [Volume fraction] 29.8 % Low 39.0-51.0 [facility] Comment on above: Order Comment: Speci men Type: BLOOD SPECIMENOrdering Facility: [facility] Address: [address] [place] [address] Performed By: #### 5 8410-2 ####[facility]ATORYCLIA [id number] [address] OF [facility] Hemoglobin (Bld) [Mass/Vol] 9.1 g/dL Low 13.0-17.0 [facility] Comment on above: Order Comment: Speci men Type: BLOOD SPECIMENOrdering Facility: [facility] Address: [address] [place] [address] Performed By: #### 5 8410-2 ####[facility]ATORYCLIA [id number] [address] OF [facility] MCH (RBC) [Entitic mass] 27.8 pg Normal 26.0-34.0 [facility] Comment on above: Order Comment: Speci men Type: BLOOD SPECIMENOrdering Facility: [facility] Address: [address] [place] [address] Performed By: #### 5 8410-2 ####[facility]ORYCLIA [id number] [address] [place] MCHC (RBC) [Mass/Vol] 30.5 g/dL Normal 30.5-36.0 [facility] Comment on above: Order Comment: Speci men Type: BLOOD SPECIMENOrdering Facility: [facility] Address: [address] [place] [address] Performed By: #### 5 8410-2 ####[facility]ORYCLIA [id number] [address] MCV (RBC) [Entitic vol] 91.1 fL Normal 80.0-100.0 [facility] Comment on above: Order Comment: Speci men Type: BLOOD SPECIMENOrdering Facility: [facility] Address: [address] [place] [address] Performed By: #### 5 8410-2 ####[facility]ORYCLIA [id number] [address] Nucleated RBC (Bld) [#/Vol] 10*3/uL Normal <0.01 [facility] Comment on above: Order Comment: Speci men Type: BLOOD SPECIMENOrdering Facility: [facility] Address: [address] [place] [address] Performed By: #### 5 8410-2 ####[facility]ORYCLIA [id number] [address] Platelet mean volume (Bld) [Entitic vol] 10.3 fL Normal 9.0-12.7 [facility] Comment on above: Order Comment: Speci men Type: BLOOD SPECIMENOrdering Facility: [facility] Address: [address] [place] [address] Performed By: #### 5 8410-2 ####[facility]ORYCLIA [id number] [address] Platelets (Bld) [#/Vol] 336 10*3/uL Normal 150-400 [facility] Comment on above: Order Comment: Speci men Type: BLOOD SPECIMENOrdering Facility: [facility] Address: [address] [place] [address] Performed By: #### 5 8410-2 ####[facility]ATORYCLIA [id number] [address] [place] RBC (Bld) [#/Vol] 3.27 10*6/uL Low 4.20-6.00 [facility] Comment on above: Order Comment: Speci men Type: BLOOD SPECIMENOrdering Facility: [facility] Address: [address] [place] [address] Performed By: #### 5 8410-2 ####[facility]ORATORYCLIA [id number] [place] [address] [place] WBC (Bld) [#/Vol] 9.14 10*3/uL Normal 3.70-11.00 [facility] Comment on above: Order Comment: Speci men Type: BLOOD SPECIMENOrdering Facility: [facility] Address: [address] [place] [address] Performed By: #### 5 8410-2 ####[facility]ATORYCLIA [id number] [address] CONSULT PROGon 06-26-2021 CONSULT PROG Normal [facility] Magnesium SerPl-mCncon 06-26 Magnesium [Mass/Vol] 2.2 mg/dL Normal 1.7-2.3 [facility] Comment on above: Order Comment: Speci men Type: BLOOD SPECIMENOrdering Facility: [facility] Address: [address] [place] [address] Performed By: #### 1 9123-9, 23872-6 ####[facility]ATORYCLIA [id number] [address] NURSING PROGon 06-26-2021 NURSING PROG Normal [facility] NURSING PROG Normal [facility] Basic metabolic 2000 panelon 06-25-2021 Anion gap [Moles/Vol] 8 mmol/L Low 9-18 [facility] Comment on above: Order Comment: Speci men Type: BLOOD SPECIMENOrdering Facility: [facility] Address: [address] [place] [address] Performed By: #### 2 4321-2, 01691-2 ####[facility]ATORYCLIA [id number] [address] [place] Calcium [Mass/Vol] 8.8 mg/dL Normal 8.5-10.2 [facility] Comment on above: Order Comment: Speci men Type: BLOOD SPECIMENOrdering Facility: [facility] Address: [address] [address] Performed By: #### 2 4320-2, ####[facility]ATORYCLIA [id number] [address] [place] Chloride [Moles/Vol] 105 mmol/L Normal 97-105 [facility] Comment on above: Order Comment: Speci men Type: BLOOD SPECIMENOrdering Facility: [facility] Address: [address] [place] [address] Performed By: #### 2 4322, ####[facility]ATORYCLIA [id number] [place] [address] [place] CO2 [Moles/Vol] 27 mmol/L Normal 22-30 [facility] Comment on above: Order Comment: Speci men Type: BLOOD SPECIMENOrdering Facility: [facility] Address: [address] [place] [address] Performed By: #### 2 2, ####[facility]ATORYCLIA [id number] [place] [address] [place] Creatinine [Mass/Vol] 0.59 mg/dL Low 0.73-1.22 [facility] Comment on above: Order Comment: Speci men Type: BLOOD SPECIMENOrdering Facility: [facility] Address: [address] [place] [address] Performed By: #### 2 4320-06, ####[facility]ATORYCLIA [id number] [place] [address] [place] GFR/1.73 sq M.predicted MDRD (S/P/Bld) [Vol rate/Area] mL/min/{1.73_m2} Normal [facility] Comment on above: Order Comment: Speci men Type: BLOOD SPECIMENOrdering Facility: [facility] Address: [address] [place] [address] Result Comment: >60e GFR (Estimated GFR) Units [...] actual GFR. Performed By: #### 2 4320-06, ####[facility]ATORYCLIA [id number] [place] [address] [place] Glucose [Mass/Vol] 132 mg/dL High 74-99 [facility] Comment on above: Order Comment: Shira feldman Type: BLOOD SPECIMENOrdering Facility: [facility] Address: [address] [place], [place] [phone] Result Comment: The [place] Diabetes [employer] (ADA) provides guidance for cutoff [...] Standards of Medical Care in Diabetes 2016, [place] [employer]. Diabetes Care. 2016.39(Suppl 1). Performed By: #### 2 4320-06, ####[facility]ORYCLIA [id number] [place] [address] [place] Potassium [Moles/Vol] 3.9 mmol/L Normal 3.7-5.1 [facility] Comment on above: Order Comment: Shira feldman Type: BLOOD SPECIMENOrdering Facility: [facility] Address: [address] [place] [phone] Performed By: #### 2 4320-06, ####[facility]ATORYCLIA [id number] [address] [place] Sodium [Moles/Vol] 140 mmol/L Normal 136-144 [facility] Comment on above: Order Comment: Speci men Type: BLOOD SPECIMENOrdering Facility: [facility] Address: [address] [place] [address] Performed By: #### 2 4321-2, 47187-8 ####[facility]ORYCLIA [id number] [address] [place] Urea nitrogen [Mass/Vol] 24 mg/dL Normal 9-24 [facility] Comment on above: Order Comment: Speci men Type: BLOOD SPECIMENOrdering Facility: [facility] Address: [address] [place] [address] Performed By: #### 2 4321-2, 22116-1 ####[facility]ORYCLIA [id number] [address] [place] [facility] CASE MANAGEMon 06-25-2021 CASE MANAGEM Normal [facility] CBC panel Auto (Bld)on 06-25 Erythrocyte distribution width (RBC) [Ratio] 15.9 % High 11.5-15.0 [facility] Comment on above: Order Comment: Speci men Type: BLOOD SPECIMENOrdering Facility: [facility] Address: [address] [place] [address] Performed By: #### 5 8410-2 ####[facility]ATORYCLIA [id number] [address] Hematocrit (Bld) [Volume fraction] 31.0 % Low 39.0-51.0 [facility] Comment on above: Order Comment: Speci men Type: BLOOD SPECIMENOrdering Facility: [facility] Address: [address] [place] [address] Performed By: #### 5 8410-2 ####[facility]ORYCLIA [id number] [address] [place] [facility] Hemoglobin (Bld) [Mass/Vol] 9.4 g/dL Low 13.0-17.0 [facility] Comment on above: Order Comment: Speci men Type: BLOOD SPECIMENOrdering Facility: [facility] Address: [address] [place] [address] Performed By: #### 5 8410-2 ####[facility]ATORYCLIA [id number] [address] STATES [facility] MCH (RBC) [Entitic mass] 28.1 pg Normal 26.0-34.0 [facility] Comment on above: Order Comment: Speci men Type: BLOOD SPECIMENOrdering Facility: [facility] Address: [address] [place] [address] Performed By: #### 5 8410-2 ####[facility]ATORYCLIA [id number] [address] STATES [facility] MCHC (RBC) [Mass/Vol] 30.3 g/dL Low 30.5-36.0 [facility] Comment on above: Order Comment: Speci men Type: BLOOD SPECIMENOrdering Facility: [facility] Address: [address] [place] [address] Performed By: #### 5 8410-2 ####[facility]ATORYCLIA [id number] [address] MCV (RBC) [Entitic vol] 92.5 fL Normal 80.0-100.0 [facility] Comment on above: Order Comment: Speci men Type: BLOOD SPECIMENOrdering Facility: [facility] Address: [address] [place] [address] Performed By: #### 5 8410-2 ####[facility]ORYCLIA [id number] [address] Nucleated RBC (Bld) [#/Vol] 10*3/uL Normal <0.01 [facility] Comment on above: Order Comment: Speci men Type: BLOOD SPECIMENOrdering Facility: [facility] Address: [address] [place] [address] Performed By: #### 5 8410-2 ####[facility]ATORYCLIA [id number] [address] STATES [facility] Platelet mean volume (Bld) [Entitic vol] 10.5 fL Normal 9.0-12.7 [facility] Comment on above: Order Comment: Speci men Type: BLOOD SPECIMENOrdering Facility: [facility] Address: [address] [place] [address] Performed By: #### 5 8410-2 ####[facility]ORYCLIA [id number] [address] [place] Platelets (Bld) [#/Vol] 311 10*3/uL Normal 150-400 [facility] Comment on above: Order Comment: Speci men Type: BLOOD SPECIMENOrdering Facility: [facility] Address: [address] [place] [address] Performed By: #### 5 8410-2 ####[facility]ORYCLIA [id number] [address] [place] RBC (Bld) [#/Vol] 3.35 10*6/uL Low 4.20-6.00 [facility] Comment on above: Order Comment: Speci men Type: BLOOD SPECIMENOrdering Facility: [facility] Address: [address] [place] [address] Performed By: #### 5 8410-2 ####[facility]ORYCLIA [id number] [address] [place] WBC (Bld) [#/Vol] 9.57 10*3/uL Normal 3.70-11.00 [facility] Comment on above: Order Comment: Speci men Type: BLOOD SPECIMENOrdering Facility: [facility] Address: [address] [place] [address] Performed By: #### 5 8410-2 ####[facility]ATORYCLIA [id number] [address] [place] Magnesium SerPl-ncon 06-25 Magnesium [Mass/Vol] 2.4 mg/dL High 1.7-2.3 [facility] Comment on above: Order Comment: Speci men Type: BLOOD SPECIMENOrdering Facility: [facility] Address: [address] [place] [address] Performed By: #### 2 4321-2, 85744-7 ####[facility]ATORYCLIA [id number] [place] [address] [place] Basic metabolic 2000 panelon 06-24-2021 Anion gap [Moles/Vol] 9 mmol/L Normal 9-18 [facility] Comment on above: Order Comment: Speci men Type: BLOOD SPECIMENOrdering Facility: [facility] Address: [address] [place] [address] Performed By: #### 1 9123-9, 72803-7 ####[facility]ATORYCLIA [id number] [place] [address] [place] Calcium [Mass/Vol] 8.6 mg/dL Normal 8.5-10.2 [facility] Comment on above: Order Comment: Speci men Type: BLOOD SPECIMENOrdering Facility: [facility] Address: [address] [place] [address] Performed By: #### 1 9123-9, 88471-7 ####[facility]ORYCLIA [id number] [address] [place] Chloride [Moles/Vol] 103 mmol/L Normal 97-105 [facility] Comment on above: Order Comment: Speci men Type: BLOOD SPECIMENOrdering Facility: [facility] Address: [address] [place] [address] Performed By: #### 1 9123-9, 35378-7 ####[facility]ORYCLIA [id number] [place] [address] [place] CO2 [Moles/Vol] 26 mmol/L Normal 22-30 [facility] Comment on above: Order Comment: Speci men Type: BLOOD SPECIMENOrdering Facility: [facility] Address: [address] [place] [address] Performed By: #### 1 9123-9, 68019-9 ####[facility]ATORYCLIA [id number] [address] [place] [id number] [place] Creatinine [Mass/Vol] 0.60 mg/dL Low 0.73-1.22 [facility] Comment on above: Order Comment: Shira feldman Type: BLOOD SPECIMENOrdering Facility: [facility] Address: [address] Performed By: #### 1 9123-9, 14103-4 ####[facility]ORYCLIA [id number] [place] [address] [place] GFR/1.73 sq M.predicted MDRD (S/P/Bld) [Vol rate/Area] mL/min/{1.73_m2} Normal [facility] Comment on above: Order Comment: [facility] Type: BLOOD SPECIMENOrdering Facility: [facility] Address: [address] [place] [address] Result Comment: >60e GFR (Estimated GFR) Units [...] actual GFR. Performed By: #### 1 9123-9, 24738-1 ####[facility]ORYCLIA [id number] [address] [id number] [place] Glucose [Mass/Vol] 126 mg/dL High 74-99 [facility] Comment on above: Order Comment: Shira feldman Type: BLOOD SPECIMENOrdering Facility: [facility] Address: [address] [address] Result Comment: The [place] Diabetes [employer] (ADA) provides guidance for cutoff [...] Standards of Medical Care in Diabetes 2016, [place] [employer]. Diabetes Care. 2016.39(Suppl 1). Performed By: #### 1 9123-9, 61160-4 ####[facility]ATORYCLIA [id number] [place] [address] [place] Potassium [Moles/Vol] 3.9 mmol/L Normal 3.7-5.1 [facility] Comment on above: Order Comment: Speci men Type: BLOOD SPECIMENOrdering Facility: [facility] Address: [address] [place] [address] Performed By: #### 1 91239, 56046-7 ####[facility]ATORYCLIA [id number] [address] STATES [place] [facility] Sodium [Moles/Vol] 138 mmol/L Normal 136-144 [facility] Comment on above: Order Comment: Speci men Type: BLOOD SPECIMENOrdering Facility: [facility] Address: [address] [address] Performed By: #### 1 91239, 78496-8 ####[facility]ATORYCLIA [id number] [place] [address] [place] Urea nitrogen [Mass/Vol] 24 mg/dL Normal 9-24 [facility] Comment on above: Order Comment: Speci men Type: BLOOD SPECIMENOrdering Facility: [facility] Address: [address] [address] Performed By: #### 1 91239, 85753-8 ####[facility]ATORYCLIA [id number] [address] [place] CASE MANAGEMon 06-24-2021 CASE MANAGEM Normal [facility] CASE MANAGEM Normal [facility] CASE MANAGEM Normal [facility] CBC panel Auto (Bld)on 06-24 Erythrocyte distribution width (RBC) [Ratio] 16.1 % High 11.5-15.0 [facility] Comment on above: Order Comment: Speci men Type: BLOOD SPECIMENOrdering Facility: [facility] Address: [address] [place] [address] Performed By: #### 5 8410-2 ####[facility]ATORYCLIA [id number] [address] Hematocrit (Bld) [Volume fraction] 31.7 % Low 39.0-51.0 [facility] Comment on above: Order Comment: Speci men Type: BLOOD SPECIMENOrdering Facility: [facility] Address: [address] [place] [address] Performed By: #### 5 8410-2 ####[facility]ATORYCLIA [id number] [address] [place] [facility] Hemoglobin (Bld) [Mass/Vol] 9.7 g/dL Low 13.0-17.0 [facility] Comment on above: Order Comment: Speci men Type: BLOOD SPECIMENOrdering Facility: [facility] Address: [address] [place] [address] Performed By: #### 5 8410-2 ####[facility]ATORYCLIA [id number] [address] [place] MCH (RBC) [Entitic mass] 28.0 pg Normal 26.0-34.0 [facility] Comment on above: Order Comment: Speci men Type: BLOOD SPECIMENOrdering Facility: [facility] Address: [address] [place] [address] Performed By: #### 5 8410-2 ####[facility]ORYCLIA [id number] [address] [place] MCHC (RBC) [Mass/Vol] 30.6 g/dL Normal 30.5-36.0 [facility] Comment on above: Order Comment: Speci men Type: BLOOD SPECIMENOrdering Facility: [facility] Address: [address] [place] [address] Performed By: #### 5 8410-2 ####[facility]ATORYCLIA [id number] [address] STATES [facility] MCV (RBC) [Entitic vol] 91.4 fL Normal 80.0-100.0 [facility] Comment on above: Order Comment: Speci men Type: BLOOD SPECIMENOrdering Facility: [facility] Address: [address] [place], [place] [address] Performed By: #### 5 8410-2 ####[facility]ATORYCLIA [id number] [address] [place] Nucleated RBC (Bld) [#/Vol] 10*3/uL Normal <0.01 [facility] Comment on above: Order Comment: Speci men Type: BLOOD SPECIMENOrdering Facility: [facility] Address: [address] [place] [address] Performed By: #### 5 8410-2 ####[facility]ATORYCLIA [id number] [address] [place] Platelet mean volume (Bld) [Entitic vol] 11.0 fL Normal 9.0-12.7 [facility] Comment on above: Order Comment: Speci men Type: BLOOD SPECIMENOrdering Facility: [facility] Address: [address] [place], [place] [address] Performed By: #### 5 8410-2 ####[facility] LABORATORYCLIA [id number] [address] [place] Platelets (Bld) [#/Vol] 358 10*3/uL Normal 150-400 [facility] Comment on above: Order Comment: Speci men Type: BLOOD SPECIMENOrdering Facility: [facility] Address: [address] [place], [place] [address] Performed By: #### 5 8410-2 ####[facility] LABORATORYCLIA [id number] [address] [place] RBC (Bld) [#/Vol] 3.47 10*6/uL Low 4.20-6.00 [facility] Comment on above: Order Comment: Speci men Type: BLOOD SPECIMENOrdering Facility: [facility] Address: [address] [place] [address] Performed By: #### 5 8410-2 ####[facility] LABORATORYCLIA [id number] [address] OF [facility] WBC (Bld) [#/Vol] 10.07 10*3/uL Normal 3.70-11.00 [facility] Comment on above: Order Comment: Speci men Type: BLOOD SPECIMENOrdering Facility: [facility] Address: [address] [place] [address] Performed By: #### 5 8410-2 ####[facility]ORYCLIA [id number] [address] [place] Magnesium SerPl-mCncon 06-24 Magnesium [Mass/Vol] 2.3 mg/dL Normal 1.7-2.3 [facility] Comment on above: Order Comment: Speci men Type: BLOOD SPECIMENOrdering Facility: [facility] Address: [address] [place] [address] Performed By: #### 1 9123-9, 48383-8 ####[facility]ORYCLIA [id number] [place] [address] [place] ALLIED HEALTHon 06-23-2021 ALLIED HEALTH Normal [facility] Basic metabolic 2000 panelon 06-23-2021 Anion gap [Moles/Vol] 9 mmol/L Normal -18 [facility] Comment on above: Order Comment: Speci men Type: BLOOD SPECIMENOrdering Facility: [facility] Address: [address] [place] [address] Performed By: #### 1 9123-9, 73572-7 ####[facility]ORYCLIA [id number] [place] [address] [place] Calcium [Mass/Vol] 8.4 mg/dL Low 8.5-10.2 [facility] Comment on above: Order Comment: Speci men Type: BLOOD SPECIMENOrdering Facility: [facility] Address: [address] [place] [address] Performed By: #### 1 9123-9, 07490-1 ####[facility]ORYCLIA [id number] [address] [place] Chloride [Moles/Vol] 104 mmol/L Normal 97-105 [facility] Comment on above: Order Comment: Speci men Type: BLOOD SPECIMENOrdering Facility: [facility] Address: [address] [place] [address] Performed By: #### 1 9123-9, 01061-4 ####[facility]ORYCLIA [id number] [address] STATES OF [facility] CO2 [Moles/Vol] 26 mmol/L Normal 22-30 [facility] Comment on above: Order Comment: Speci men Type: BLOOD SPECIMENOrdering Facility: [facility] Address: [address] [place] [address] Performed By: #### 1 9123-9, 19105-5 ####[facility]ORYCLIA [id number] [address] [place] Creatinine [Mass/Vol] 0.62 mg/dL Low 0.73-1.22 [facility] Comment on above: Order Comment: Speci men Type: BLOOD SPECIMENOrdering Facility: [facility] Address: [address] [place] [address] Performed By: #### 1 9123-9, 85151-8 ####[facility]ORYCLIA [id number] [place] [address] [place] GFR/1.73 sq M.predicted MDRD (S/P/Bld) [Vol rate/Area] mL/min/{1.73_m2} Normal [facility] Comment on above: Order Comment: Shira feldman Type: BLOOD SPECIMENOrdering Facility: [facility] Address: [address] [place], [place] [phone] Result Comment: >60e GFR (Estimated GFR) Units [...] actual GFR. Performed By: #### 1 9123-9, 48542-5 ####[facility]ATORYCLIA [id number] [place] [address] [place] Glucose [Mass/Vol] 111 mg/dL High 74-99 [facility] Comment on above: Order Comment: Shira feldman Type: BLOOD SPECIMENOrdering Facility: [facility] Address: [address] [place], [place] [phone] Result Comment: The [place] [employer] (ADA) provides guidance for cutoff [...] Standards of Medical Care in Diabetes 2016, [place] [employer]. Diabetes Care. 2016.39(Suppl 1). Performed By: #### 1 9123-9, 32582-1 ####[facility]ATORYCLIA [id number] [place] [address] [place] Potassium [Moles/Vol] 4.1 mmol/L Normal 3.7-5.1 [facility] Comment on above: Order Comment: Speci men Type: BLOOD SPECIMENOrdering Facility: [facility] Address: [address] [place] [address] Performed By: #### 1 9123-9, 73105-9 ####[facility]ORYCLIA [id number] [address] [place] Sodium [Moles/Vol] 139 mmol/L Normal 136-144 [facility] Comment on above: Order Comment: Speci men Type: BLOOD SPECIMENOrdering Facility: [facility] Address: [address] [place] [address] Performed By: #### 1 9123-9, 17950-4 ####[facility]ORYCLIA [id number] [address] STATES [facility] Urea nitrogen [Mass/Vol] 26 mg/dL High 9-24 [facility] Comment on above: Order Comment: Speci men Type: BLOOD SPECIMENOrdering Facility: [facility] Address: [address] [place] [address] Performed By: #### 1 9123-9, 05902-6 ####[facility]ATORYCLIA [id number] [address] [place] CASE MANAGEMon 06-23-2021 CASE MANAGEM Normal [facility] CBC panel Auto (Bld)on 06-23 Erythrocyte distribution width (RBC) [Ratio] 16.0 % High 11.5-15.0 [facility] Comment on above: Order Comment: Speci men Type: BLOOD SPECIMENOrdering Facility: [facility] Address: [address] [place] [address] Performed By: #### 5 8410-2 ####[facility]ORYCLIA [id number] [address] STATES [facility] Hematocrit (Bld) [Volume fraction] 31.1 % Low 39.0-51.0 [facility] Comment on above: Order Comment: Speci men Type: BLOOD SPECIMENOrdering Facility: [facility] Address: [address] [place] [address] Performed By: #### 5 8410-2 ####[facility]ORYCLIA [id number] [address] [place] [facility] Hemoglobin (Bld) [Mass/Vol] 9.5 g/dL Low 13.0-17.0 [facility] Comment on above: Order Comment: Speci men Type: BLOOD SPECIMENOrdering Facility: [facility] Address: [address] [place] [address] Performed By: #### 5 8410-2 ####[facility]ORYCLIA [id number] [address] MCH (RBC) [Entitic mass] 28.1 pg Normal 26.0-34.0 [facility] Comment on above: Order Comment: Speci men Type: BLOOD SPECIMENOrdering Facility: [facility] Address: [address] [place] [address] Performed By: #### 5 8410-2 ####[facility]ATORYCLIA [id number] [address] STATES [facility] MCHC (RBC) [Mass/Vol] 30.5 g/dL Normal 30.5-36.0 [facility] Comment on above: Order Comment: Speci men Type: BLOOD SPECIMENOrdering Facility: [facility] Address: [address] [place] [address] Performed By: #### 5 8410-2 ####[facility]ATORYCLIA [id number] [address] MCV (RBC) [Entitic vol] 92.0 fL Normal 80.0-100.0 [facility] Comment on above: Order Comment: Speci men Type: BLOOD SPECIMENOrdering Facility: [facility] Address: [address] [place] [address] Performed By: #### 5 8410-2 ####[facility]ORYCLIA [id number] [address] Nucleated RBC (Bld) [#/Vol] 10*3/uL Normal <0.01 [facility] Comment on above: Order Comment: Speci men Type: BLOOD SPECIMENOrdering Facility: [facility] Address: [facility] [place] [address] Performed By: #### 5 8410-2 ####[facility]ATORYCLIA [id number] [place] [address] [place] Platelet mean volume (Bld) [Entitic vol] 11.0 fL Normal 9.0-12.7 [facility] Comment on above: Order Comment: Speci men Type: BLOOD SPECIMENOrdering Facility: [facility] Address: [address] [place] [address] Performed By: #### 5 8410-2 ####[facility]ATORYCLIA [id number] [address] [place] Platelets (Bld) [#/Vol] 361 10*3/uL Normal 150-400 [facility] Comment on above: Order Comment: Speci men Type: BLOOD SPECIMENOrdering Facility: [facility] Address: [address] [place] [address] Performed By: #### 5 8410-2 ####[facility]ORYCLIA [id number] [place] [address] [place] RBC (Bld) [#/Vol] 3.38 10*6/uL Low 4.20-6.00 [facility] Comment on above: Order Comment: Speci men Type: BLOOD SPECIMENOrdering Facility: [facility] Address: [address] Performed By: #### 5 8410-2 ####[facility]ATORYCLIA [id number] [address] [place] WBC (Bld) [#/Vol] 9.02 10*3/uL Normal 3.70-11.00 [facility] Comment on above: Order Comment: Speci men Type: BLOOD SPECIMENOrdering Facility: [facility] Address: [address] [place] [address] Performed By: #### 5 8410-2 ####[facility]ATORYCLIA [id number] [address] CONSULT PROGon 06-23-2021 CONSULT PROG Normal [facility] CONSULT PROG Normal [facility] Magnesium SerPl-mCncon 06-23 Magnesium [Mass/Vol] 2.4 mg/dL High 1.7-2.3 [facility] Comment on above: Order Comment: Speci men Type: BLOOD SPECIMENOrdering Facility: [facility] Address: [address] [place] [address] Performed By: #### 1 9123-9, 52680-3 ####[facility]ATORYCLIA [id number] [address] THERAPY NTon 06-23-2021 THERAPY NT Normal [facility] Vancomycin random [Mass/Vol] on 06-23-2021 Vancomycin [Mass/Vol] 22.8 ug/mL High 10.0-20.0 [facility] Comment on above: Order Comment: Speci men Type: BLOOD SPECIMENOrdering Facility: [facility] Address: [address] [place] [address] Result Comment: Refe rence ranges and high/low indicator flags are provided as general guidelines only. The treating physician must determine appropriate target levels/dosing based on the specific clinical situation. Performed By: #### 4 091-5 ####[facility]ATORYCLIA [id number] [address] OF [facility] XR MOD BARIUM SWALLOW W SPEE Lore 06-23-2021 XR MOD BARIUM SWALLOW W SPEECH Normal [facility] Basic metabolic 2000 panelon 06-22-2021 Anion gap [Moles/Vol] 6 mmol/L Low 9-18 [facility] Comment on above: Order Comment: Speci men Type: BLOOD SPECIMENOrdering Facility: [facility] Address: [address] [place] [address] Performed By: #### 2 4321-2, 12258-3 ####[facility]ATORYCLIA [id number] [place] [address] [place] Calcium [Mass/Vol] 8.5 mg/dL Normal 8.5-10.2 [facility] Comment on above: Order Comment: Speci men Type: BLOOD SPECIMENOrdering Facility: [facility] Address: [address] [place] [address] Performed By: #### 2 4321-2, ####[facility]ATORYCLIA [id number] [place] [address] [place] Chloride [Moles/Vol] 105 mmol/L Normal 97-105 [facility] Comment on above: Order Comment: Speci men Type: BLOOD SPECIMENOrdering Facility: [facility] Address: [address] [place] [address] Performed By: #### 2 4322, ####[facility]ATORYCLIA [id number] [address] [place] CO2 [Moles/Vol] 26 mmol/L Normal 22-30 [facility] Comment on above: Order Comment: Speci men Type: BLOOD SPECIMENOrdering Facility: [facility] Address: [address] [place] [address] Performed By: #### 2 2, ####[facility]ATORYCLIA [id number] [place] [address] [place] Creatinine [Mass/Vol] 0.56 mg/dL Low 0.73-1.22 [facility] Comment on above: Order Comment: Speci men Type: BLOOD SPECIMENOrdering Facility: [facility] Address: [address] [place] [address] Performed By: #### 2 4322, ####[facility]ATORYCLIA [id number] [place] [address] [place] GFR/1.73 sq M.predicted MDRD (S/P/Bld) [Vol rate/Area] mL/min/{1.73_m2} Normal [facility] Comment on above: Order Comment: Shira feldman Type: BLOOD SPECIMENOrdering Facility: [facility] Address: [address] [place], [place] [phone] Result Comment: >60e GFR (Estimated GFR) Units [...] actual GFR. Performed By: #### 2 4321-2, 93774-0 ####[facility]ATORYCLIA [id number] [place] [address] [place] Glucose [Mass/Vol] 120 mg/dL High 74-99 [facility] Comment on above: Order Comment: Shira feldman Type: BLOOD SPECIMENOrdering Facility: [facility] Address: [address] [place] [phone] Result Comment: The [place] [employer] (ADA) provides guidance for cutoff [...] Standards of Medical Care in Diabetes 2016, [place] [employer]. Diabetes Care. 2016.39(Suppl 1). Performed By: #### 2 4321-2, 72012-5 ####[facility]ATORYCLIA [id number] [place] [address] [place] Potassium [Moles/Vol] 4.0 mmol/L Normal 3.7-5.1 [facility] Comment on above: Order Comment: Speci men Type: BLOOD SPECIMENOrdering Facility: [facility] Address: [address] [place] [address] Performed By: #### 2 4321-2, ####[facility]ATORYCLIA [id number] [address] STATES [place] [facility] Sodium [Moles/Vol] 137 mmol/L Normal 136-144 [facility] Comment on above: Order Comment: Speci men Type: BLOOD SPECIMENOrdering Facility: [facility] Address: [address] [place] [address] Performed By: #### 2 4321-2, ####[facility]ATORYCLIA [id number] [address] STATES [facility] Urea nitrogen [Mass/Vol] 25 mg/dL High 9-24 [facility] Comment on above: Order Comment: Speci men Type: BLOOD SPECIMENOrdering Facility: [facility] Address: [address] [place] [address] Performed By: #### 2 432-2, ####[facility]ATORYCLIA [id number] [address] STATES [place] [facility] CASE MANAGEMon 06-22-2021 CASE MANAGEM Normal [facility] CBC panel Auto (Bld)on 06-22 Erythrocyte distribution width (RBC) [Ratio] 16.0 % High 11.5-15.0 [facility] Comment on above: Order Comment: Speci men Type: BLOOD SPECIMENOrdering Facility: [facility] Address: [address] [place] [address] Performed By: #### 5 8410-2 ####[facility]ATORYCLIA [id number] [address] STATES [facility] Hematocrit (Bld) [Volume fraction] 30.5 % Low 39.0-51.0 [facility] Comment on above: Order Comment: Speci men Type: BLOOD SPECIMENOrdering Facility: [facility] Address: [address] [place] [address] Performed By: #### 5 8410-2 ####[facility]ATORYCLIA [id number] [address] Hemoglobin (Bld) [Mass/Vol] 9.3 g/dL Low 13.0-17.0 [facility] Comment on above: Order Comment: Speci men Type: BLOOD SPECIMENOrdering Facility: [facility] Address: [address] [place] [address] Performed By: #### 5 8410-2 ####[facility]ATORYCLIA [id number] [address] STATES [facility] MCH (RBC) [Entitic mass] 28.4 pg Normal 26.0-34.0 [facility] Comment on above: Order Comment: Speci men Type: BLOOD SPECIMENOrdering Facility: [facility] Address: [address] [place] [address] Performed By: #### 5 8410-2 ####[facility]ATORYCLIA [id number] [address] MCHC (RBC) [Mass/Vol] 30.5 g/dL Normal 30.5-36.0 [facility] Comment on above: Order Comment: Speci men Type: BLOOD SPECIMENOrdering Facility: [facility] Address: [address] [place] [address] Performed By: #### 5 8410-2 ####[facility]ATORYCLIA [id number] [address] MCV (RBC) [Entitic vol] 93.3 fL Normal 80.0-100.0 [facility] Comment on above: Order Comment: Speci men Type: BLOOD SPECIMENOrdering Facility: [facility] Address: [address] [place] [address] Performed By: #### 5 8410-2 ####[facility]ATORYCLIA [id number] [address] Nucleated RBC (Bld) [#/Vol] 10*3/uL Normal <0.01 [facility] Comment on above: Order Comment: Speci men Type: BLOOD SPECIMENOrdering Facility: [facility] Address: [address] [place] [address] Performed By: #### 5 8410-2 ####[facility]ATORYCLIA [id number] [address] [place] Platelet mean volume (Bld) [Entitic vol] 11.5 fL Normal 9.0-12.7 [facility] Comment on above: Order Comment: Speci men Type: BLOOD SPECIMENOrdering Facility: [facility] Address: [address] [place] [address] Performed By: #### 5 8410-2 ####[facility]ORYCLIA [id number] [address] [place] Platelets (Bld) [#/Vol] 346 10*3/uL Normal 150-400 [facility] Comment on above: Order Comment: Speci men Type: BLOOD SPECIMENOrdering Facility: [facility] Address: [address] [place] [address] Performed By: #### 5 8410-2 ####[facility]ATORYCLIA [id number] [place] [address] [place] RBC (Bld) [#/Vol] 3.27 10*6/uL Low 4.20-6.00 [facility] Comment on above: Order Comment: Speci men Type: BLOOD SPECIMENOrdering Facility: [facility] Address: [address] Performed By: #### 5 8410-2 ####[facility]ATORYCLIA [id number] [address] [place] WBC (Bld) [#/Vol] 9.44 10*3/uL Normal 3.70-11.00 [facility] Comment on above: Order Comment: Speci men Type: BLOOD SPECIMENOrdering Facility: [facility] Address: [address] [place] [address] Performed By: #### 5 8410-2 ####[facility]ATORYCLIA [id number] [address] HEMOGLOBIN (HGB)on Hemoglobin (Bld) [Mass/Vol] 9.7 g/dL Low 13.0-17.0 [facility] Comment on above: Order Comment: Speci men Type: BLOOD SPECIMENOrdering Facility: [facility] Address: [address] [place] [address] Performed By: #### H GB ####[facility]ORATORYCLIA [id number] [address] Magnesium SerPl-mCncon 06-22 Magnesium [Mass/Vol] 2.4 mg/dL High 1.7-2.3 [facility] Comment on above: Order Comment: Speci men Type: BLOOD SPECIMENOrdering Facility: [facility] Address: [address] [place] [address] Performed By: #### 2 4321-2, 31461-3 ####[facility]ATORYCLIA [id number] [address] THERAPY NTon 06-22-2021 THERAPY NT Normal [facility] THERAPY NT Normal [facility] aPTT PPPon 06-22-2021 aPTT Coag (PPP) [Time] 62.3 s High 23.0-32.4 [facility] Comment on above: Order Comment: Speci men Type: BLOOD SPECIMENOrdering Facility: [facility] Address: [address] [place] [address] Performed By: #### 1 4979-9 ####[facility]ATORYCLIA [id number] [address] [place] ALLIED HEALTHon 06-21-2021 ALLIED HEALTH Normal [facility] Basic metabolic 2000 panelon 06-21-2021 Anion gap [Moles/Vol] 8 mmol/L Low 9-18 [facility] Comment on above: Order Comment: Speci men Type: BLOOD SPECIMENOrdering Facility: [facility] Address: [address] [place] [address] Performed By: #### 2 4321-2, ####[facility] LABORATORYCLIA [id number] [place] [address] [place] Calcium [Mass/Vol] 8.2 mg/dL Low 8.5-10.2 [facility] Comment on above: Order Comment: Speci men Type: BLOOD SPECIMENOrdering Facility: [facility] Address: [address] [place] [address] Performed By: #### 2 4320-2, ####[facility]ATORYCLIA [id number] [place] [address] [place] Chloride [Moles/Vol] 108 mmol/L High 97-105 [facility] Comment on above: Order Comment: Speci men Type: BLOOD SPECIMENOrdering Facility: [facility] Address: [address] [place] [address] Performed By: #### 2 2, ####[facility]ORATORYCLIA [id number] [place] [address] [place] CO2 [Moles/Vol] 24 mmol/L Normal 22-30 [facility] Comment on above: Order Comment: Speci men Type: BLOOD SPECIMENOrdering Facility: [facility] Address: [address] [place] [address] Performed By: #### 2 2, ####[facility]ORATORYCLIA [id number] [place] [address] [place] Creatinine [Mass/Vol] 0.61 mg/dL Low 0.73-1.22 [facility] Comment on above: Order Comment: Speci men Type: BLOOD SPECIMENOrdering Facility: [facility] Address: [address] [place] [address] Performed By: #### 2 4320-2, ####[facility]ORATORYCLIA [id number] [place] [address] [place] GFR/1.73 sq M.predicted MDRD (S/P/Bld) [Vol rate/Area] mL/min/{1.73_m2} Normal [facility] Comment on above: Order Comment: Shira feldman Type: BLOOD SPECIMENOrdering Facility: [facility] Address: [address] [place], [place] [phone] Result Comment: >60e GFR (Estimated GFR) Units [...] actual GFR. Performed By: #### 2 4321-2, 15402-0 ####[facility]ORATORYCLIA [id number] [place] [address] [place] Glucose [Mass/Vol] 211 mg/dL High 74-99 [facility] Comment on above: Order Comment: Shira feldman Type: BLOOD SPECIMENOrdering Facility: [facility] Address: [address] [place] [address] Result Comment: The [place] [employer] (ADA) provides guidance for cutoff [...] Standards of Medical Care in Diabetes 2016, [place] [employer]. Diabetes Care. 2016.39(Suppl 1). Performed By: #### 2 4321-2, 59435-4 ####[facility]ATORYCLIA [id number] [address] [place] Potassium [Moles/Vol] 4.3 mmol/L Normal 3.7-5.1 [facility] Comment on above: Order Comment: Speci men Type: BLOOD SPECIMENOrdering Facility: [facility] Address: [address] [place] [address] Performed By: #### 2 4321-2, ####[facility]ORATORYCLIA [id number] [address] [place] Sodium [Moles/Vol] 140 mmol/L Normal 136-144 [facility] Comment on above: Order Comment: Speci men Type: BLOOD SPECIMENOrdering Facility: [facility] Address: [address] [place] [address] Performed By: #### 2 4321-2, ####[facility]ORATORYCLIA [id number] [address] STATES [facility] Urea nitrogen [Mass/Vol] 26 mg/dL High 9-24 [facility] Comment on above: Order Comment: Speci men Type: BLOOD SPECIMENOrdering Facility: [facility] Address: [address] [place] [address] Performed By: #### 2 4321-2, ####[facility]ORATORYCLIA [id number] STATES OF [facility] CBC panel Auto (Bld)on 06-21 Erythrocyte distribution width (RBC) [Ratio] 16.1 % High 11.5-15.0 [facility] Comment on above: Order Comment: Speci men Type: BLOOD SPECIMENOrdering Facility: [facility] Address: [address] [place] [address] Performed By: #### 5 8410-2 ####[facility]ORATORYCLIA [id number] [place] Hematocrit (Bld) [Volume fraction] 29.7 % Low 39.0-51.0 [facility] Comment on above: Order Comment: Speci men Type: BLOOD SPECIMENOrdering Facility: [facility] Address: [address] [place] [address] Performed By: #### 5 8410-2 ####[facility] LABORATORYCLIA [id number] [address] [facility] Hemoglobin (Bld) [Mass/Vol] 9.2 g/dL Low 13.0-17.0 [facility] Comment on above: Order Comment: Speci men Type: BLOOD SPECIMENOrdering Facility: [facility] Address: [address] [place] [address] Performed By: #### 5 8410-2 ####[facility]ORATORYCLIA [id number] [address] [place] [facility] MCH (RBC) [Entitic mass] 28.8 pg Normal 26.0-34.0 [facility] Comment on above: Order Comment: Speci men Type: BLOOD SPECIMENOrdering Facility: [facility] Address: [address] [place] [address] Performed By: #### 5 8410-2 ####[facility]ATORYCLIA [id number] [address] MCHC (RBC) [Mass/Vol] 31.0 g/dL Normal 30.5-36.0 [facility] Comment on above: Order Comment: Speci men Type: BLOOD SPECIMENOrdering Facility: [facility] Address: [address] [place] [address] Performed By: #### 5 8410-2 ####[facility]ATORYCLIA [id number] [address] [place] MCV (RBC) [Entitic vol] 93.1 fL Normal 80.0-100.0 [facility] Comment on above: Order Comment: Speci men Type: BLOOD SPECIMENOrdering Facility: [facility] Address: [address] [place] [address] Performed By: #### 5 8410-2 ####[facility]ATORYCLIA [id number] [place] [address] [place] Nucleated RBC (Bld) [#/Vol] 10*3/uL Normal <0.01 [facility] Comment on above: Order Comment: Speci men Type: BLOOD SPECIMENOrdering Facility: [facility] Address: [address] [place] [address] Performed By: #### 5 8410-2 ####[facility]ATORYCLIA [id number] [place] [address] [place] Platelet mean volume (Bld) [Entitic vol] 11.6 fL Normal 9.0-12.7 [facility] Comment on above: Order Comment: Speci men Type: BLOOD SPECIMENOrdering Facility: [facility] Address: [address] [place] [address] Performed By: #### 5 8410-2 ####[facility]ATORYCLIA [id number] [address] [place] Platelets (Bld) [#/Vol] 347 10*3/uL Normal 150-400 [facility] Comment on above: Order Comment: Speci men Type: BLOOD SPECIMENOrdering Facility: [facility] Address: [address] [place] [address] Performed By: #### 5 8410-2 ####[facility]ATORYCLIA [id number] [place] [address] [place] RBC (Bld) [#/Vol] 3.19 10*6/uL Low 4.20-6.00 [facility] Comment on above: Order Comment: Speci men Type: BLOOD SPECIMENOrdering Facility: [facility] Address: [address] [place] [address] Performed By: #### 5 8410-2 ####[facility]ATORYCLIA [id number] [place] [address] [place] WBC (Bld) [#/Vol] 10.29 10*3/uL Normal 3.70-11.00 [facility] Comment on above: Order Comment: Speci men Type: BLOOD SPECIMENOrdering Facility: [facility] Address: [address] [place] [address] Performed By: #### 5 8410-2 ####[facility]ATORYCLIA [id number] [address] CONSULT PROGon 06-21-2021 CONSULT PROG Normal [facility] CONSULT PROG Normal [facility] Magnesium SerPl-mCncon 06-21 Magnesium [Mass/Vol] 2.5 mg/dL High 1.7-2.3 [facility] Comment on above: Order Comment: Speci men Type: BLOOD SPECIMENOrdering Facility: [facility] Address: [address] [place] [address] Performed By: #### 2 4321-2, 23423-8 ####[facility]ATORYCLIA [id number] [address] NUTRITIONon 06-21-2021 NUTRITION Normal [facility] XR CHEST 1V FRONTALon 2021 XR CHEST 1V FRONTAL Normal [facility] aPTT PPPon 06-21-2021 aPTT Coag (PPP) [Time] 68.5 s High 23.0-32.4 [facility] Comment on above: Order Comment: Speci men Type: BLOOD SPECIMENOrdering Facility: [facility] Address: [address] [place] [address] Performed By: #### 1 4979-9 ####[facility]ATORYCLIA [id number] [address] aPTT Coag (PPP) [Time] 57.8 s High 23.0-32.4 [facility] Comment on above: Order Comment: Speci men Type: BLOOD SPECIMENOrdering Facility: [facility] Address: [address] [place] [address] Performed By: #### 1 4979-9 ####[facility]ATORYCLIA [id number] [address] [place] Basic metabolic 2000 panelon 06-20-2021 Anion gap [Moles/Vol] 9 mmol/L Normal 9-18 [facility] Comment on above: Order Comment: Speci men Type: BLOOD SPECIMENOrdering Facility: [facility] Address: [address] [address] Performed By: #### 2 4321-2, ####[facility] LABORATORYCLIA [id number] [place] [address] [place] Calcium [Mass/Vol] 8.3 mg/dL Low 8.5-10.2 [facility] Comment on above: Order Comment: Speci men Type: BLOOD SPECIMENOrdering Facility: [facility] Address: [address] [place] [address] Performed By: #### 2 4320-2, ####[facility]ATORYCLIA [id number] [place] [address] [place] Chloride [Moles/Vol] 111 mmol/L High 97-105 [facility] Comment on above: Order Comment: Speci men Type: BLOOD SPECIMENOrdering Facility: [facility] Address: [address] [place] [address] Performed By: #### 2 4320-2, ####[facility] LABORATORYCLIA [id number] [place] [address] [place] CO2 [Moles/Vol] 24 mmol/L Normal 22-30 [facility] Comment on above: Order Comment: Speci men Type: BLOOD SPECIMENOrdering Facility: [facility] Address: [address] [address] Performed By: #### 2 4321-2, ####[facility]ORATORYCLIA [id number] [place] [address] [place] Creatinine [Mass/Vol] 0.64 mg/dL Low 0.73-1.22 [facility] Comment on above: Order Comment: Speci men Type: BLOOD SPECIMENOrdering Facility: [facility] Address: [address] [address] Performed By: #### 2 4321-2, 55589-7 ####[facility]ATORYCLIA [id number] [place] [address] [place] GFR/1.73 sq M.predicted MDRD (S/P/Bld) [Vol rate/Area] mL/min/{1.73_m2} Normal [facility] Comment on above: Order Comment: Shira feldman Type: BLOOD SPECIMENOrdering Facility: [facility] Address: [address] [address] Result Comment: >60e GFR (Estimated GFR) Units [...] actual GFR. Performed By: #### 2 4321-2, 24913-0 ####[facility]ATORYCLIA [id number] [place] [address] [place] Glucose [Mass/Vol] 114 mg/dL High 74-99 [facility] Comment on above: Order Comment: Shira feldman Type: BLOOD SPECIMENOrdering Facility: [facility] Address: [address] [address] Result Comment: The [place] [employer] (ADA) provides guidance for cutoff [...] Standards of Medical Care in Diabetes 2016, [place] [employer]. Diabetes Care. 2016.39(Suppl 1). Performed By: #### 2 432-2, 00967-3 ####[facility]ATORYCLIA [id number] [place] [address] [place] Potassium [Moles/Vol] 4.1 mmol/L Normal 3.7-5.1 [facility] Comment on above: Order Comment: Speci men Type: BLOOD SPECIMENOrdering Facility: [facility] Address: [address] [place] [address] Performed By: #### 2 432-2, ####[facility]ATORYCLIA [id number] [address] [place] Sodium [Moles/Vol] 144 mmol/L Normal 136-144 [facility] Comment on above: Order Comment: Speci men Type: BLOOD SPECIMENOrdering Facility: [facility] Address: [address] [place] [address] Performed By: #### 2 4320-2, ####[facility]ATORYCLIA [id number] [place] [address] [place] Urea nitrogen [Mass/Vol] 27 mg/dL High 9-24 [facility] Comment on above: Order Comment: Speci men Type: BLOOD SPECIMENOrdering Facility: [facility] Address: [address] [place] [address] Performed By: #### 2 2, ####[facility]ORATORYCLIA [id number] [address] [place] CASE MANAGEMon 06-20-2021 CASE MANAGEM Normal [facility] CBC panel Auto (Bld)on 06-20 Erythrocyte distribution width (RBC) [Ratio] 15.9 % High 11.5-15.0 [facility] Comment on above: Order Comment: Speci men Type: BLOOD SPECIMENOrdering Facility: [facility] Address: [address] [place] [address] Performed By: #### 5 8410-2 ####[facility]ORATORYCLIA [id number] [address] Hematocrit (Bld) [Volume fraction] 31.0 % Low 39.0-51.0 [facility] Comment on above: Order Comment: Speci men Type: BLOOD SPECIMENOrdering Facility: [facility] Address: [address] [place] [address] Performed By: #### 5 8410-2 ####[facility]ATORYCLIA [id number] [address] Hemoglobin (Bld) [Mass/Vol] 9.2 g/dL Low 13.0-17.0 [facility] Comment on above: Order Comment: Speci men Type: BLOOD SPECIMENOrdering Facility: [facility] Address: [address] [place] [address] Performed By: #### 5 8410-2 ####[facility]ATORYCLIA [id number] [address] MCH (RBC) [Entitic mass] 27.4 pg Normal 26.0-34.0 [facility] Comment on above: Order Comment: Speci men Type: BLOOD SPECIMENOrdering Facility: [facility] Address: [address] [place] [address] Performed By: #### 5 8410-2 ####[facility]ATORYCLIA [id number] [address] [place] MCHC (RBC) [Mass/Vol] 29.7 g/dL Low 30.5-36.0 [facility] Comment on above: Order Comment: Speci men Type: BLOOD SPECIMENOrdering Facility: [facility] Address: [address] [place] [address] Performed By: #### 5 8410-2 ####[facility]ATORYCLIA [id number] [address] [facility] MCV (RBC) [Entitic vol] 92.3 fL Normal 80.0-100.0 [facility] Comment on above: Order Comment: Speci men Type: BLOOD SPECIMENOrdering Facility: [facility] Address: [address] Performed By: #### 5 8410-2 ####[facility]ATORYCLIA [id number] [address] [place] Nucleated RBC (Bld) [#/Vol] 10*3/uL Normal <0.01 [facility] Comment on above: Order Comment: Speci men Type: BLOOD SPECIMENOrdering Facility: [facility] Address: [address] [place], [place] [address] Performed By: #### 5 8410-2 ####[facility]ATORYCLIA [id number] [place] [address] [place] Platelet mean volume (Bld) [Entitic vol] 11.5 fL Normal 9.0-12.7 [facility] Comment on above: Order Comment: Speci men Type: BLOOD SPECIMENOrdering Facility: [facility] Address: [address] [place] [address] Performed By: #### 5 8410-2 ####[facility]ATORYCLIA [id number] [address] [place] Platelets (Bld) [#/Vol] 343 10*3/uL Normal 150-400 [facility] Comment on above: Order Comment: Speci men Type: BLOOD SPECIMENOrdering Facility: [facility] Address: [address] Performed By: #### 5 8410-2 ####[facility]ORYCLIA [id number] [address] [place] RBC (Bld) [#/Vol] 3.36 10*6/uL Low 4.20-6.00 [facility] Comment on above: Order Comment: Speci men Type: BLOOD SPECIMENOrdering Facility: [facility] Address: [address] [place] [address] Performed By: #### 5 8410-2 ####[facility]ATORYCLIA [id number] [address] [place] WBC (Bld) [#/Vol] 10.71 10*3/uL Normal 3.70-11.00 [facility] Comment on above: Order Comment: Speci men Type: BLOOD SPECIMENOrdering Facility: [facility] Address: [address] [place] [address] Performed By: #### 5 8410-2 ####[facility]ATORYCLIA [id number] [address] [facility] CONSULT PROGon 06-20-2021 CONSULT PROG Normal [facility] HEMOGLOBIN (HGB)on Hemoglobin (Bld) [Mass/Vol] 9.7 g/dL Low 13.0-17.0 [facility] Comment on above: Order Comment: Speci men Type: BLOOD SPECIMENOrdering Facility: [facility] Address: [address] [place] [address] Performed By: #### H GB ####[facility]ORATORYCLIA [id number] [address] [place] Magnesium SerPl-mCncon 06-20 Magnesium [Mass/Vol] 2.5 mg/dL High 1.7-2.3 [facility] Comment on above: Order Comment: Speci men Type: BLOOD SPECIMENOrdering Facility: [facility] Address: [address] [place] [address] Performed By: #### 2 4321-2, 67005-3 ####[facility]ORATORYCLIA [id number] [address] [place] NURSING PROGon 06-20-2021 NURSING PROG Normal [facility] THERAPY NTon 06-20-2021 THERAPY NT Normal [facility] aPTT PPPon 06-20-2021 aPTT Coag (PPP) [Time] 93.5 s High 23.0-32.4 [facility] Comment on above: Order Comment: Speci men Type: BLOOD SPECIMENOrdering Facility: [facility] Address: [address] [place] [address] Performed By: #### 1 4979-9 ####[facility]ORATORYCLIA [id number] [place] [address] [place] aPTT Coag (PPP) [Time] 47.1 s High 23.0-32.4 [facility] Comment on above: Order Comment: Speci men Type: BLOOD SPECIMENOrdering Facility: [facility] Address: [address] [place] [address] Performed By: #### 1 4979-9 ####[facility]ORATORYCLIA [id number] [place] [address] [place] Basic metabolic 2000 panelon 06-19-2021 Anion gap [Moles/Vol] 7 mmol/L Low 9-18 [facility] Comment on above: Order Comment: Speci men Type: BLOOD SPECIMENOrdering Facility: [facility] Address: [address] [place] [address] Performed By: #### 2 4321-2 ####[facility]ATORYCLIA [id number] [place] [address] [place] Calcium [Mass/Vol] 8.1 mg/dL Low 8.5-10.2 [facility] Comment on above: Order Comment: Speci men Type: BLOOD SPECIMENOrdering Facility: [facility] Address: [address] [place] [address] Performed By: #### 2 4321-2 ####[facility]ATORYCLIA [id number] [place] [address] [place] Chloride [Moles/Vol] 111 mmol/L High 97-105 [facility] Comment on above: Order Comment: Speci men Type: BLOOD SPECIMENOrdering Facility: [facility] Address: [address] [place] [address] Performed By: #### 2 4321-2 ####[facility]ATORYCLIA [id number] [place] [address] [place] CO2 [Moles/Vol] 24 mmol/L Normal 22-30 [facility] Comment on above: Order Comment: Shira feldman Type: BLOOD SPECIMENOrdering Facility: [facility] Address: [address] [address] Performed By: #### 2 4321-2 ####[facility]ORATORYCLIA [id number] [place] [address] [place] Creatinine [Mass/Vol] 0.71 mg/dL Low 0.73-1.22 [facility] Comment on above: Order Comment: Johncara feldman Type: BLOOD SPECIMENOrdering Facility: [facility] Address: [address] [place] [address] Performed By: #### 2 4321-2 ####[facility]PITALCLIA [id number] [address] [place] GFR/1.73 sq M.predicted MDRD (S/P/Bld) [Vol rate/Area] mL/min/{1.73_m2} Normal [facility] Comment on above: Order Comment: Johncara feldman Type: BLOOD SPECIMENOrdering Facility: [facility] Address: [address] [place] [address] Result Comment: >60e GFR (Estimated GFR) Units [...] actual GFR. Performed By: #### 2 4321-2 ####[facility]ATORYCLIA [id number] [address] [place] Glucose [Mass/Vol] 110 mg/dL High 74-99 [facility] Comment on above: Order Comment: Shira feldman Type: BLOOD SPECIMENOrdering Facility: [facility] Address: [address] [address] Result Comment: The [place] [employer] (ADA) provides guidance for cutoff [...] Standards of Medical Care in Diabetes 2016, [place] [employer]. Diabetes Care. 2016.39(Suppl 1). Performed By: #### 2 4321-2 ####[facility]ATORYCLIA [id number] [place] [address] [place] Potassium [Moles/Vol] 3.7 mmol/L Normal 3.7-5.1 [facility] Comment on above: Order Comment: Speci men Type: BLOOD SPECIMENOrdering Facility: [facility] Address: [address] [place] [address] Performed By: #### 2 4321-2 ####[facility]ATORYCLIA [id number] [address] [place] Sodium [Moles/Vol] 142 mmol/L Normal 136-144 [facility] Comment on above: Order Comment: Speci men Type: BLOOD SPECIMENOrdering Facility: [facility] Address: [address] [place] [address] Performed By: #### 2 4321-2 ####[facility]ATORYCLIA [id number] [place] [address] [place] Urea nitrogen [Mass/Vol] 26 mg/dL High 9-24 [facility] Comment on above: Order Comment: Speci men Type: BLOOD SPECIMENOrdering Facility: [facility] Address: [address] [address] Performed By: #### 2 4321-2 ####[facility]ORATORYCLIA [id number] [place] [address] CBC panel Auto (Bld)on 06-19 Erythrocyte distribution width (RBC) [Ratio] 15.7 % High 11.5-15.0 [facility] Comment on above: Order Comment: Speci men Type: BLOOD SPECIMENOrdering Facility: [facility] Address: [address] [place] [address] Performed By: #### 5 8410-2 ####[facility]ORATORYCLIA [id number] [address] Hematocrit (Bld) [Volume fraction] 30.9 % Low 39.0-51.0 [facility] Comment on above: Order Comment: Speci men Type: BLOOD SPECIMENOrdering Facility: [facility] Address: [address] [place] [address] Performed By: #### 5 8410-2 ####[facility]ORATORYCLIA [id number] [address] Hemoglobin (Bld) [Mass/Vol] 9.5 g/dL Low 13.0-17.0 [facility] Comment on above: Order Comment: Speci men Type: BLOOD SPECIMENOrdering Facility: [facility] Address: [address] [place] [address] Performed By: #### 5 8410-2 ####[facility]ATORYCLIA [id number] [address] MCH (RBC) [Entitic mass] 28.4 pg Normal 26.0-34.0 [facility] Comment on above: Order Comment: Speci men Type: BLOOD SPECIMENOrdering Facility: [facility] Address: [address] [place] [address] Performed By: #### 5 8410-2 ####[facility]ORATORYCLIA [id number] [address] MCHC (RBC) [Mass/Vol] 30.7 g/dL Normal 30.5-36.0 [facility] Comment on above: Order Comment: Speci men Type: BLOOD SPECIMENOrdering Facility: [facility] Address: [address] [address] Performed By: #### 5 8410-2 ####[facility]ORATORYCLIA [id number] [address] MCV (RBC) [Entitic vol] 92.2 fL Normal 80.0-100.0 [facility] Comment on above: Order Comment: Speci men Type: BLOOD SPECIMENOrdering Facility: [facility] Address: [address] [address] Performed By: #### 5 8410-2 ####[facility]ORATORYCLIA [id number] [address] Nucleated RBC (Bld) [#/Vol] 10*3/uL Normal <0.01 [facility] Comment on above: Order Comment: Speci men Type: BLOOD SPECIMENOrdering Facility: [facility] Address: [address] [place] [address] Performed By: #### 5 8410-2 ####[facility]ORATORYCLIA [id number] [address] Platelet mean volume (Bld) [Entitic vol] 11.7 fL Normal 9.0-12.7 [facility] Comment on above: Order Comment: Speci men Type: BLOOD SPECIMENOrdering Facility: [facility] Address: [address] Performed By: #### 5 8410-2 ####[facility]ORATORYCLIA [id number] [address] Platelets (Bld) [#/Vol] 323 10*3/uL Normal 150-400 [facility] Comment on above: Order Comment: Speci men Type: BLOOD SPECIMENOrdering Facility: [facility] Address: [address] [place] [address] Performed By: #### 5 8410-2 ####[facility]ORATORYCLIA [id number] [address] RBC (Bld) [#/Vol] 3.35 10*6/uL Low 4.20-6.00 [facility] Comment on above: Order Comment: Speci men Type: BLOOD SPECIMENOrdering Facility: [facility] Address: [address] [place] [address] Performed By: #### 5 8410-2 ####[facility]ORATORYCLIA [id number] [address] [place] [facility] WBC (Bld) [#/Vol] 9.53 10*3/uL Normal 3.70-11.00 [facility] Comment on above: Order Comment: Speci men Type: BLOOD SPECIMENOrdering Facility: [facility] Address: [address] [place] [address] Performed By: #### 5 8410-2 ####[facility]ORATORYCLIA [id number] [address] HEMOGLOBIN (HGB)on 2 Hemoglobin (Bld) [Mass/Vol] 9.7 g/dL Low 13.0-17.0 [facility] Comment on above: Order Comment: Speci men Type: BLOOD SPECIMENOrdering Facility: [facility] Address: [address] [place] [address] Performed By: #### H GB ####[facility] LABORATORYCLIA [id number] [address] Magnesium SerPl-mCncon 06-19 Magnesium [Mass/Vol] 2.5 mg/dL High 1.7-2.3 [facility] Comment on above: Order Comment: Speci men Type: BLOOD SPECIMENOrdering Facility: [facility] Address: [address] [place] [address] Performed By: #### 1 9123-9, 2777-1 ####[facility]ORATORYCLIA [id number] [address] [place] NURSING PROGon 06-19-2021 NURSING PROG Normal [facility] Phosphate SerPl-mCncon 06-19 Phosphate [Mass/Vol] 2.6 mg/dL Low 2.7-4.8 [facility] Comment on above: Order Comment: Speci men Type: BLOOD SPECIMENOrdering Facility: [facility] Address: [address] [place] [address] Performed By: #### 1 9123-9, 2777-1 ####[facility] LABORATORYCLIA [id number] [address] aPTT PPPon 06-19-2021 aPTT Coag (PPP) [Time] 61.9 s High 23.0-32.4 [facility] Comment on above: Order Comment: Speci men Type: BLOOD SPECIMENOrdering Facility: [facility] Address: [address] [place] [address] Performed By: #### 1 4979-9 ####[facility] LABORATORYCLIA [id number] [address] aPTT Coag (PPP) [Time] 68.6 s High 23.0-32.4 [facility] Comment on above: Order Comment: Speci men Type: BLOOD SPECIMENOrdering Facility: [facility] Address: [address] [place] [address] Performed By: #### 1 4979-9 ####[facility]ATORYCLIA [id number] [address] aPTT Coag (PPP) [Time] 83.2 s High 23.0-32.4 [facility] Comment on above: Order Comment: Speci men Type: BLOOD SPECIMENOrdering Facility: [facility] Address: [address] [place] [address] Performed By: #### 1 4979-9 ####[facility]ATORYCLIA [id number] [address] [place] Basic metabolic 2000 panelon 06-18-2021 Anion gap [Moles/Vol] 7 mmol/L Low 9-18 [facility] Comment on above: Order Comment: Speci men Type: BLOOD SPECIMENOrdering Facility: [facility] Address: [address] [place] [address] Performed By: #### 2 4321-2, , 2776-05 ####[facility] LABORATORYCLIA [id number] [place] [address] [place] Calcium [Mass/Vol] 8.2 mg/dL Low 8.5-10.2 [facility] Comment on above: Order Comment: Speci men Type: BLOOD SPECIMENOrdering Facility: [facility] Address: [address] [place] [address] Performed By: #### 2 4321-2, , 2776-05 ####[facility]ATORYCLIA [id number] [place] [address] [place] Chloride [Moles/Vol] 115 mmol/L High 97-105 [facility] Comment on above: Order Comment: Speci men Type: BLOOD SPECIMENOrdering Facility: [facility] Address: [address] [place] [address] Performed By: #### 2 1-2, , 2776-05 ####[facility]ATORYCLIA [id number] [place] [address] [place] CO2 [Moles/Vol] 23 mmol/L Normal 22-30 [facility] Comment on above: Order Comment: Speci men Type: BLOOD SPECIMENOrdering Facility: [facility] Address: [address] [place] [address] Performed By: #### 2 4321-2, , 2776-05 ####[facility]ATORYCLIA [id number] [place] [address] [place] Creatinine [Mass/Vol] 0.70 mg/dL Low 0.73-1.22 [facility] Comment on above: Order Comment: Speci men Type: BLOOD SPECIMENOrdering Facility: [facility] Address: [address] [place] [address] Performed By: #### 2 4321-2, 57750-9, 2777-1 ####[facility]ATORYCLIA [id number] [place] [address] [place] GFR/1.73 sq M.predicted MDRD (S/P/Bld) [Vol rate/Area] mL/min/{1.73_m2} Normal [facility] Comment on above: Order Comment: Shira feldman Type: BLOOD SPECIMENOrdering Facility: [facility] Address: [address] [place], [place] [address] Result Comment: >60e GFR (Estimated GFR) Units [...] actual GFR. Performed By: #### 2 4321-2, 12526-5, 2777-1 ####[facility] LABORATORYIA [id number] [place] [address] [place] Glucose [Mass/Vol] 105 mg/dL High 74-99 [facility] Comment on above: Order Comment: Shira feldman Type: BLOOD SPECIMENOrdering Facility: [facility] Address: [address] [place], [place] [address] Result Comment: The [place] [employer] (ADA) provides guidance for cutoff [...] Standards of Medical Care in Diabetes 2016, [place] [employer]. Diabetes Care. 2016.39(Suppl 1). Performed By: #### 2 4321-2, , 2776- ####[facility]ATORYCLIA [id number] [place] [address] [place] Potassium [Moles/Vol] 4.1 mmol/L Normal 3.7-5.1 [facility] Comment on above: Order Comment: Speci men Type: BLOOD SPECIMENOrdering Facility: [facility] Address: [address] [place] [address] Performed By: #### 2 4321-2, , 2776- ####[facility]ATORYCLIA [id number] [place] [address] [place] Sodium [Moles/Vol] 145 mmol/L High 136-144 [facility] Comment on above: Order Comment: Speci men Type: BLOOD SPECIMENOrdering Facility: [facility] Address: [address] [place] [address] Performed By: #### 2 4321-2, , 2776-05 ####[facility]ATORYCLIA [id number] [place] [address] [place] Urea nitrogen [Mass/Vol] 27 mg/dL High 9-24 [facility] Comment on above: Order Comment: Speci men Type: BLOOD SPECIMENOrdering Facility: [facility] Address: [address] [place] [address] Performed By: #### 2 4321-2, , 2776-05 ####[facility]ATORYCLIA [id number] [place] [address] [place] CALCIUM IONIZED Bon 0220 22 Calcium.ionized (BldV) [Mass/Vol] 1.22 mmol/L Normal 1.08-1.30 [facility] Comment on above: Order Comment: Speci men Type: BLOOD SPECIMENOrdering Facility: [facility] Address: [address] [place] [address] Performed By: #### I CA ####[facility]ATORYCLIA [id number] [address] Calcium.ionized adjusted to pH 7.4 (Bld) [Moles/Vol] 1.23 mmol/L Normal 1.08-1.30 [facility] Comment on above: Order Comment: Speci men Type: BLOOD SPECIMENOrdering Facility: [facility] Address: [address] [place] [address] Performed By: #### I CA ####[facility]ORATORYCLIA [id number] [address] CBC panel Auto (Bld)on 06-18 Erythrocyte distribution width (RBC) [Ratio] 15.8 % High 11.5-15.0 [facility] Comment on above: Order Comment: Speci men Type: BLOOD SPECIMENOrdering Facility: [facility] Address: [address] [place] [address] Performed By: #### 5 8410-2 ####[facility] HOSPITALIA [id number] [address] Hematocrit (Bld) [Volume fraction] 29.5 % Low 39.0-51.0 [facility] Comment on above: Order Comment: Speci men Type: BLOOD SPECIMENOrdering Facility: [facility] Address: [address] [place] [address] Performed By: #### 5 8410-2 ####[facility]ATORYCLIA [id number] [address] Hemoglobin (Bld) [Mass/Vol] 8.8 g/dL Low 13.0-17.0 [facility] Comment on above: Order Comment: Speci men Type: BLOOD SPECIMENOrdering Facility: [facility] Address: [address] [place] [address] Performed By: #### 5 8410-2 ####[facility]ORATORYCLIA [id number] [address] MCH (RBC) [Entitic mass] 27.4 pg Normal 26.0-34.0 [facility] Comment on above: Order Comment: Speci men Type: BLOOD SPECIMENOrdering Facility: [facility] Address: [address] [place] [address] Performed By: #### 5 8410-2 ####[facility]ATORYCLIA [id number] [address] MCHC (RBC) [Mass/Vol] 29.8 g/dL Low 30.5-36.0 [facility] Comment on above: Order Comment: Speci men Type: BLOOD SPECIMENOrdering Facility: [facility] Address: [address] [place] [address] Performed By: #### 5 8410-2 ####[facility]ATORYCLIA [id number] [address] [place] [facility] MCV (RBC) [Entitic vol] 91.9 fL Normal 80.0-100.0 [facility] Comment on above: Order Comment: Speci men Type: BLOOD SPECIMENOrdering Facility: [facility] Address: [address] [place] [address] Performed By: #### 5 8410-2 ####[facility]ATORYCLIA [id number] [address] Nucleated RBC (Bld) [#/Vol] 10*3/uL Normal <0.01 [facility] Comment on above: Order Comment: Speci men Type: BLOOD SPECIMENOrdering Facility: [facility] Address: [address] [place] [address] Performed By: #### 5 8410-2 ####[facility]ATORYCLIA [id number] [address] Platelet mean volume (Bld) [Entitic vol] 11.9 fL Normal 9.0-12.7 [facility] Comment on above: Order Comment: Speci men Type: BLOOD SPECIMENOrdering Facility: [facility] Address: [address] [place] [address] Performed By: #### 5 8410-2 ####[facility]ATORYCLIA [id number] [address] [place] Platelets (Bld) [#/Vol] 291 10*3/uL Normal 150-400 [facility] Comment on above: Order Comment: Speci men Type: BLOOD SPECIMENOrdering Facility: [facility] Address: [address] [place] [address] Performed By: #### 5 8410-2 ####[facility]ATORYCLIA [id number] [address] [place] RBC (Bld) [#/Vol] 3.21 10*6/uL Low 4.20-6.00 [facility] Comment on above: Order Comment: Speci men Type: BLOOD SPECIMENOrdering Facility: [facility] Address: [address] [place] [address] Performed By: #### 5 8410-2 ####[facility]ATORYCLIA [id number] [address] WBC (Bld) [#/Vol] 10.19 10*3/uL Normal 3.70-11.00 [facility] Comment on above: Order Comment: Speci men Type: BLOOD SPECIMENOrdering Facility: [facility] Address: [address] [place] [address] Performed By: #### 5 8410-2 ####[facility]ORATORYCLIA [id number] [address] [place] FERRITIN BLDon 06-18-2021 Ferritin [Mass/Vol] 600.9 ng/mL High 30.3-565.7 [facility] Comment on above: Order Comment: Speci men Type: BLOOD SPECIMENOrdering Facility: [facility] Address: [address] [place] [address] Performed By: #### S ERFOL, IRON, FERR ####[facility]ORATORYCLIA [id number] [address] FOLATE SERUMon 06-18-2021 Folate [Mass/Vol] 14.3 ng/mL Normal >4.7 [facility] Comment on above: Order Comment: Speci men Type: BLOOD SPECIMENOrdering Facility: [facility] Address: [address] [place] [address] Performed By: #### S ERFOL, IRON, FERR ####[facility]ATORYCLIA [id number] [address] [place] [facility] Gas and Carbon monoxide pane l (BldV)on 06-18-2021 Base excess Calc (BldV) [Moles/Vol] 0.5 mmol/L Normal 0-2 [facility] Comment on above: Order Comment: Speci men Type: VENOUS BLOOD SPECIMENOrdering Facility: [facility] Address: [address] [place] [address] Performed By: #### 2 4344-4 ####[facility]ATORYCLIA [id number] [address] [place] [facility] Body temperature 97.34 [degF] Normal [facility] Comment on above: Order Comment: Speci men Type: VENOUS BLOOD SPECIMENOrdering Facility: [facility] Address: [address] [place] [address] Performed By: #### 2 4344-4 ####[facility]ATORYCLIA [id number] [address] [place] CALCIUM IONIZED, PH CORRECTED 1.26 mmol/L Normal 1.08-1.30 [facility] Comment on above: Order Comment: Speci men Type: VENOUS BLOOD SPECIMENOrdering Facility: [facility] Address: [address] [place] [address] Performed By: #### 2 4344-4 ####[facility]ATORYCLIA [id number] [address] [place] Calcium.ionized (BldV) [Mass/Vol] 1.25 mmol/L Normal 1.08-1.30 [facility] Comment on above: Order Comment: Speci men Type: VENOUS BLOOD SPECIMENOrdering Facility: [facility] Address: [address] [place], [place] [address] Performed By: #### 2 4344-4 ####[facility]ATORYCLIA [id number] [address] Carboxyhemoglobin (BldV) [Mass fraction] 1.5 % Normal 0.0-2.0 [facility] Comment on above: Order Comment: Speci men Type: VENOUS BLOOD SPECIMENOrdering Facility: [facility] Address: [address] [place] [address] Result Comment: Carb oxyhemoglobin Reference Range for Smokers: 2.0-8.0% Performed By: #### 2 4344-4 ####[facility]ORYCLIA [id number] [address] [place] CO2 (BldV) [Partial pressure] 38 mm[Hg] Low 42-55 [facility] Comment on above: Order Comment: Speci men Type: VENOUS BLOOD SPECIMENOrdering Facility: [facility] Address: [address] [place] [address] Performed By: #### 2 4344-4 ####[facility]ORYCLIA [id number] [address] [place] CO2 [Moles/Vol] 22.9 mmol/L Low 25-29 [facility] Comment on above: Order Comment: Speci men Type: VENOUS BLOOD SPECIMENOrdering Facility: [facility] Address: [address] [place] [address] Performed By: #### 2 4344-4 ####[facility]ATORYCLIA [id number] [address] [place] CO2 adjusted to patient's actual temperature (BldV) [Partial pressure] 37 mmHg Low 42-55 [facility] Comment on above: Order Comment: Speci men Type: VENOUS BLOOD SPECIMENOrdering Facility: [facility] Address: [address] [place] [address] Performed By: #### 2 4344-4 ####[facility]ORATORYCLIA [id number] [place] [address] [place] Glucose [Mass/Vol] 103 mg/dL Normal 60-105 [facility] Comment on above: Order Comment: Speci men Type: VENOUS BLOOD SPECIMENOrdering Facility: [facility] Address: [address] [place] [address] Performed By: #### 2 4344-4 ####[facility]ATORYCLIA [id number] [place] [id number] [place] HCO3 (Bld) [Moles/Vol] 24.4 mmol/L Normal 24-28 [facility] Comment on above: Order Comment: Speci men Type: VENOUS BLOOD SPECIMENOrdering Facility: [facility] Address: [address] [place] [address] Performed By: #### 2 4344-4 ####[facility]ATORYCLIA [id number] [address] [place] Hematocrit (Bld) [Volume fraction] 28.7 % Low 39.0-51.0 [facility] Comment on above: Order Comment: Speci men Type: VENOUS BLOOD SPECIMENOrdering Facility: [facility] Address: [address] [place] [address] Performed By: #### 2 4344-4 ####[facility]ATORYCLIA [id number] [address] [place] Hemoglobin (Bld) [Mass/Vol] 9.3 g/dL Low 13.0-17.0 [facility] Comment on above: Order Comment: Speci men Type: VENOUS BLOOD SPECIMENOrdering Facility: [facility] Address: [address] [place] [address] Performed By: #### 2 4344-4 ####[facility]ATORYCLIA [id number] [address] [place] Methemoglobin (Bld) [Mass fraction] % Normal 0.0-1.5 [facility] Comment on above: Order Comment: Speci men Type: VENOUS BLOOD SPECIMENOrdering Facility: [facility] Address: [address] [place] [address] Performed By: #### 2 4344-4 ####[facility] [facility]ATORYCLIA [id number] [address] O2 THERAPY Ventilator Normal [facility] Comment on above: Order Comment: Speci men Type: VENOUS BLOOD SPECIMENOrdering Facility: [facility] Address: [address] [place] [address] Performed By: #### 2 4344-4 ####[facility] [facility]ATORYCLIA [id number] [address] [place] Oxygen (BldV) [Partial pressure] 37 mm[Hg] Normal 35-45 [facility] Comment on above: Order Comment: Speci men Type: VENOUS BLOOD SPECIMENOrdering Facility: [facility] Address: [address] [place] [address] Performed By: #### 2 4344-4 ####[facility] [facility]ATORYCLIA [id number] [address] Oxygen adjusted to patient's actual temperature (BldV) [Partial pressure] 35.1 mmHg Normal 35-45 [facility] Comment on above: Order Comment: Speci men Type: VENOUS BLOOD SPECIMENOrdering Facility: [facility] Address: [address] [place] [address] Performed By: #### 2 4344-4 ####[facility] [facility]ATORYCLIA [id number] [address] Oxygen saturation in Blood 67.1 % Normal 60-85 [facility] Comment on above: Order Comment: Speci men Type: VENOUS BLOOD SPECIMENOrdering Facility: [facility] Address: [address] [place] [address] Performed By: #### 2 4344-4 ####[facility]ATORYCLIA [id number] [address] Oxyhemoglobin (BldV) [Mass fraction] 66 % Normal 60-85 [facility] Comment on above: Order Comment: Speci men Type: VENOUS BLOOD SPECIMENOrdering Facility: [facility] Address: [address] [address] Performed By: #### 2 4344-4 ####[facility]ATORYCLIA [id number] [address] [place] pH (BldV) 7.42 [pH] Normal 7.32-7.42 [facility] Comment on above: Order Comment: Speci men Type: VENOUS BLOOD SPECIMENOrdering Facility: [facility] Address: [address] [place] [address] Performed By: #### 2 4344-4 ####[facility]ORYCLIA [id number] [address] pH adjusted to patient's actual temperature (BldV) 7.43 High 7.32-7.42 [facility] Comment on above: Order Comment: Speci men Type: VENOUS BLOOD SPECIMENOrdering Facility: [facility] Address: [address] [place] [address] Performed By: #### 2 4344-4 ####[facility]ORYCLIA [id number] [address] [place] Potassium [Moles/Vol] 4.0 mmol/L Normal 3.5-5.0 [facility] Comment on above: Order Comment: Speci men Type: VENOUS BLOOD SPECIMENOrdering Facility: [facility] Address: [address] [place] [address] Performed By: #### 2 4344-4 ####[facility]ATORYCLIA [id number] [address] [place] Sodium [Moles/Vol] 146 mmol/L High 136-144 [facility] Comment on above: Order Comment: Speci men Type: VENOUS BLOOD SPECIMENOrdering Facility: [facility] Address: [address] [place] [address] Performed By: #### 2 4344-4 ####[facility]ORYCLIA [id number] [address] [place] HEMOGLOBIN (HGB)on 2 Hemoglobin (Bld) [Mass/Vol] 9.2 g/dL Low 13.0-17.0 [facility] Comment on above: Order Comment: Speci men Type: BLOOD SPECIMENOrdering Facility: [facility] Address: [address] [place] [address] Performed By: #### H GB ####[facility]ATORYCLIA [id number] [address] [place] IRON + TIBCon 06-18-2021 Iron [Mass/Vol] 27 ug/dL Low 41-186 [facility] Comment on above: Order Comment: Speci men Type: BLOOD SPECIMENOrdering Facility: [facility] Address: [address] [place] [address] Performed By: #### S ERFOL, IRON, FERR ####[facility]ORATORYCLIA [id number] [address] [place] Iron binding capacity [Mass/Vol] 141 ug/dL Low 232-386 [facility] Comment on above: Order Comment: Speci men Type: BLOOD SPECIMENOrdering Facility: [facility] Address: [address] [place] [address] Performed By: #### S ERFOL, IRON, FERR ####[facility]ATORYCLIA [id number] [address] Iron saturation [Mass fraction] 19 % Normal 15-57 [facility] Comment on above: Order Comment: Speci men Type: BLOOD SPECIMENOrdering Facility: [facility] Address: [address] [place] [address] Performed By: #### S ERFOL, IRON, FERR ####[facility]ORATORYCLIA [id number] [address] [place] Magnesium SerPl-mCncon 06-18 Magnesium [Mass/Vol] 2.5 mg/dL High 1.7-2.3 [facility] Comment on above: Order Comment: Speci men Type: BLOOD SPECIMENOrdering Facility: [facility] Address: [address] [place], [place] [address] Performed By: #### 2 4321-2, 59522-5, 2777-1 ####[facility]ATORYCLIA [id number] [address] NURSING PROGon 06-18-2021 NURSING PROG Normal [facility] Phosphate SerPl-mCncon 06-18 Phosphate [Mass/Vol] 3.0 mg/dL Normal 2.7-4.8 [facility] Comment on above: Order Comment: Speci men Type: BLOOD SPECIMENOrdering Facility: [facility] Address: [address] [place] [address] Performed By: #### 2 4321-2, , 2777 ####[facility]ATORYCLIA [id number] [address] THERAPY NTon 06-18-2021 THERAPY NT Normal [facility] aPTT PPPon 06-18-2021 aPTT Coag (PPP) [Time] 43.0 s High 23.0-32.4 [facility] Comment on above: Order Comment: Speci men Type: BLOOD SPECIMENOrdering Facility: [facility] Address: [address] [place] [address] Performed By: #### 1 4979-9 ####[facility]ATORYCLIA [id number] [address] aPTT Coag (PPP) [Time] 60.6 s High 23.0-32.4 [facility] Comment on above: Order Comment: Speci men Type: BLOOD SPECIMENOrdering Facility: [facility] Address: [address] [place] [address] Performed By: #### 1 4979-9 ####[facility]ORYCLIA [id number] [address] aPTT Coag (PPP) [Time] 46.4 s High 23.0-32.4 [facility] Comment on above: Order Comment: Speci men Type: BLOOD SPECIMENOrdering Facility: [facility] Address: [address] [place] [address] Performed By: #### 1 4979-9 ####[facility]ATORYCLIA [id number] [place] [address] [place] Basic metabolic 2000 panelon 06-17-2021 Anion gap [Moles/Vol] 7 mmol/L Low 9-18 [facility] Comment on above: Order Comment: Speci men Type: BLOOD SPECIMENOrdering Facility: [facility] Address: [address] [place] [address] Performed By: #### 2 951-2, 23210-3, 2777-1, 62910-0 ####[facility]ATORYCLIA [id number] [address] [place] Calcium [Mass/Vol] 8.1 mg/dL Low 8.5-10.2 [facility] Comment on above: Order Comment: Speci men Type: BLOOD SPECIMENOrdering Facility: [facility] Address: [address] [place] [address] Performed By: #### 2 951-2, 56601-8, 277-1, 08284-9 ####[facility]ATORYCLIA [id number] [place] [address] [place] Chloride [Moles/Vol] 113 mmol/L High 97-105 [facility] Comment on above: Order Comment: Speci men Type: BLOOD SPECIMENOrdering Facility: [facility] Address: [address] [place] [address] Performed By: #### 2 951-2, 20356-5, 1, 34078-3 ####[facility]ATORYCLIA [id number] [place] [address] [place] CO2 [Moles/Vol] 25 mmol/L Normal 22-30 [facility] Comment on above: Order Comment: Speci men Type: BLOOD SPECIMENOrdering Facility: [facility] Address: [address] [place] [address] Performed By: #### 2 951-2, 76254-2, 2776-, 66821-5 ####[facility] LABORATORYCLIA [id number] [place] [address] [place] Creatinine [Mass/Vol] 0.70 mg/dL Low 0.73-1.22 [facility] Comment on above: Order Comment: [facility] Type: BLOOD SPECIMENOrdering Facility: [facility] Address: [address] [place] [address] Performed By: #### 2 951-2, , 2776-05, 29778-6 ####[facility]ITAL[facility] [id number] [place] [address] [place] GFR/1.73 sq M.predicted MDRD (S/P/Bld) [Vol rate/Area] mL/min/{1.73_m2} Normal [facility] Comment on above: Order Comment: [facility] Type: BLOOD SPECIMENOrdering Facility: [facility] Address: [address] [place] [address] Result Comment: >60e GFR (Estimated GFR) Units [...] actual GFR. Performed By: #### 2 951-2, 74760-6, 277-, 22513-1 ####[facility]ATORYCLIA [id number] [place] [id number] [place] Glucose [Mass/Vol] 122 mg/dL High 74-99 [facility] Comment on above: Order Comment: [facility] Type: BLOOD SPECIMENOrdering Facility: [facility] Address: [address] [place] [address] Result Comment: The [place] Diabetes Association (ADA) provides guidance for cutoff [...] Standards of Medical Care in Diabetes 2016, [place] Diabetes Association. Diabetes Care. 2016.39(Suppl 1). Performed By: #### 2 951-2, 09744-3, 2776-, 26158-1 ####[facility]ATORYCLIA [id number] [place] [address] [place] Potassium [Moles/Vol] 3.5 mmol/L Low 3.7-5.1 [facility] Comment on above: Order Comment: Shira feldman Type: BLOOD SPECIMENOrdering Facility: [facility] Address: [address] [place] [address] Performed By: #### 2 951-2, , 2776-05, 49059-3 ####[facility]ORYCLIA [id number] [address] [place] Urea nitrogen [Mass/Vol] 27 mg/dL High 9-24 [facility] Comment on above: Order Comment: Shira feldman Type: BLOOD SPECIMENOrdering Facility: [facility] Address: [address] [place] [address] Performed By: #### 2 951-2, , 2776-05, 15225-2 ####[facility]ORYCLIA [id number] [place] [address] [place] CASE MANAGEMon 06-17-2021 CASE MANAGEM Normal [facility] CBC panel Auto (Bld)on 06-17 Erythrocyte distribution width (RBC) [Ratio] 15.9 % High 11.5-15.0 [facility] Comment on above: Order Comment: Speci men Type: BLOOD SPECIMENOrdering Facility: [facility] Address: [address] [place] [address] Performed By: #### 5 8410-2 ####[facility]ATORYCLIA [id number] [address] Hematocrit (Bld) [Volume fraction] 28.9 % Low 39.0-51.0 [facility] Comment on above: Order Comment: Speci men Type: BLOOD SPECIMENOrdering Facility: [facility] Address: [address] [place] [address] Performed By: #### 5 8410-2 ####[facility]ATORYCLIA [id number] [address] Hemoglobin (Bld) [Mass/Vol] 8.8 g/dL Low 13.0-17.0 [facility] Comment on above: Order Comment: Speci men Type: BLOOD SPECIMENOrdering Facility: [facility] Address: [address] [place] [address] Performed By: #### 5 8410-2 ####[facility]ORYCLIA [id number] [address] MCH (RBC) [Entitic mass] 28.4 pg Normal 26.0-34.0 [facility] Comment on above: Order Comment: Speci men Type: BLOOD SPECIMENOrdering Facility: [facility] Address: [address] [place] [address] Performed By: #### 5 8410-2 ####[facility]ORYCLIA [id number] [address] [place] MCHC (RBC) [Mass/Vol] 30.4 g/dL Low 30.5-36.0 [facility] Comment on above: Order Comment: Speci men Type: BLOOD SPECIMENOrdering Facility: [facility] Address: [address] [place] [address] Performed By: #### 5 8410-2 ####[facility]ATORYCLIA [id number] [address] OF [facility] MCV (RBC) [Entitic vol] 93.2 fL Normal 80.0-100.0 [facility] Comment on above: Order Comment: Speci men Type: BLOOD SPECIMENOrdering Facility: [facility] Address: [address] [place] [address] Performed By: #### 5 8410-2 ####[facility]ORYCLIA [id number] [address] Nucleated RBC (Bld) [#/Vol] 10*3/uL Normal <0.01 [facility] Comment on above: Order Comment: Speci men Type: BLOOD SPECIMENOrdering Facility: [facility] Address: [address] [place] [address] Performed By: #### 5 8410-2 ####[facility]ORYCLIA [id number] [address] Platelet mean volume (Bld) [Entitic vol] 11.9 fL Normal 9.0-12.7 [facility] Comment on above: Order Comment: Speci men Type: BLOOD SPECIMENOrdering Facility: [facility] Address: [address] [place] [address] Performed By: #### 5 8410-2 ####[facility]ORYCLIA [id number] [address] Platelets (Bld) [#/Vol] 257 10*3/uL Normal 150-400 [facility] Comment on above: Order Comment: Speci men Type: BLOOD SPECIMENOrdering Facility: [facility] Address: [address] [place] [address] Performed By: #### 5 8410-2 ####[facility]ORYCLIA [id number] [address] [place] RBC (Bld) [#/Vol] 3.10 10*6/uL Low 4.20-6.00 [facility] Comment on above: Order Comment: Speci men Type: BLOOD SPECIMENOrdering Facility: [facility] Address: [address] [place] [address] Performed By: #### 5 8410-2 ####[facility]ORYCLIA [id number] [address] [facility] WBC (Bld) [#/Vol] 10.54 10*3/uL Normal 3.70-11.00 [facility] Comment on above: Order Comment: Speci men Type: BLOOD SPECIMENOrdering Facility: [facility] Address: [address] [place] [address] Performed By: #### 5 8410-2 ####[facility]ORYCLIA [id number] [address] [place] HEMOGLOBIN (HGB)on Hemoglobin (Bld) [Mass/Vol] 8.8 g/dL Low 13.0-17.0 [facility] Comment on above: Order Comment: Speci men Type: BLOOD SPECIMENOrdering Facility: [facility] Address: [address] [place] [address] Performed By: #### H GB ####[facility]ATORYCLIA [id number] [address] [place] Magnesium SerPl-mCncon 06-17 Magnesium [Mass/Vol] 2.5 mg/dL High 1.7-2.3 [facility] Comment on above: Order Comment: Speci men Type: BLOOD SPECIMENOrdering Facility: [facility] Address: [address] [place] [address] Performed By: #### 2 951-2, 22674-6, 2777-1, 59072-6 ####[facility]ATORYCLIA [id number] [address] [place] NURSING PROGon 06-17-2021 NURSING PROG Normal [facility] NURSING PROG Normal [facility] NURSING PROG Normal [facility] Phosphate SerPl-mCncon 06-17 Phosphate [Mass/Vol] 1.9 mg/dL Low 2.7-4.8 [facility] Comment on above: Order Comment: Speci men Type: BLOOD SPECIMENOrdering Facility: [facility] Address: [address] [place] [address] Performed By: #### 2 951-2, , 277-1, 54507-9 ####[facility]ATORYCLIA [id number] [address] [place] [facility] Sodium SerPl-sCncon 06-17-19 Sodium [Moles/Vol] 144 mmol/L Normal 136-144 [facility] Comment on above: Order Comment: Speci men Type: BLOOD SPECIMENOrdering Facility: [facility] Address: [address] [place] [address] Performed By: #### 2 951-2 ####[facility]ORYCLIA [id number] [address] Sodium [Moles/Vol] 145 mmol/L High 136-144 [facility] Comment on above: Order Comment: Speci men Type: BLOOD SPECIMENOrdering Facility: [facility] Address: [address] [place] [address] Performed By: #### 2 951-2, , 2776-05, 73177-9 ####[facility]ORYCLIA [id number] [address] [place] aPTT PPPon 06-17-2021 aPTT Coag (PPP) [Time] 55.8 s High 23.0-32.4 [facility] Comment on above: Order Comment: Speci men Type: BLOOD SPECIMENOrdering Facility: [facility] Address: [address] [place] [address] Performed By: #### 1 4979-9 ####[facility]ORYCLIA [id number] [address] [place] ARTERIAL BLOOD GASESon 06-16 Base excess Calc (Bld) [Moles/Vol] 3 mmol/L High 0-2 [facility] Comment on above: Order Comment: Speci men Type: ARTERIAL BLOOD SPECIMENOrdering Facility: [facility] Address: [address] [place] [address] Performed By: #### A LLBG ####[facility]ATORYCLIA [id number] [address] Body temperature 99.14 [degF] Normal [facility] Comment on above: Order Comment: Speci men Type: ARTERIAL BLOOD SPECIMENOrdering Facility: [facility] Address: [address] [place] [address] Performed By: #### A LLBG ####[facility]ATORYCLIA [id number] [address] [place] CALCIUM IONIZED, PH CORRECTED 1.21 mmol/L Normal 1.08-1.30 [facility] Comment on above: Order Comment: Speci men Type: ARTERIAL BLOOD SPECIMENOrdering Facility: [facility] Address: [address] [place] [address] Performed By: #### A LLBG ####[facility]ATORYCLIA [id number] [address] [place] Calcium.ionized (BldV) [Mass/Vol] 1.17 mmol/L Normal 1.08-1.30 [facility] Comment on above: Order Comment: Speci men Type: ARTERIAL BLOOD SPECIMENOrdering Facility: [facility] Address: [address] [place] [address] Performed By: #### A LLBG ####[facility]ATORYCLIA [id number] [address] [place] Carboxyhemoglobin (BldA) [Mass fraction] 1.4 % Normal 0.0-2.0 [facility] Comment on above: Order Comment: Speci men Type: ARTERIAL BLOOD SPECIMENOrdering Facility: [facility] Address: [address] [place] [address] Result Comment: Carb oxyhemoglobin Reference Range for Smokers: 2.0-8.0% Performed By: #### A LLBG ####[facility]ORATORYCLIA [id number] [address] [place] CO2 (Bld) [Partial pressure] 38 mm Hg Normal 36-46 [facility] Comment on above: Order Comment: Speci men Type: ARTERIAL BLOOD SPECIMENOrdering Facility: [facility] Address: [address] [place] [address] Performed By: #### A LLBG ####[facility]ATORYCLIA [id number] [address] [place] CO2 [Moles/Vol] 24.5 mmol/L Normal 22-28 [facility] Comment on above: Order Comment: Speci men Type: ARTERIAL BLOOD SPECIMENOrdering Facility: [facility] Address: [address] [place] [address] Performed By: #### A LLBG ####[facility]ORYCLIA [id number] [address] [place] CO2 adjusted to patient's actual temperature (Bld) [Partial pressure] 38 mmHg Normal 36-46 [facility] Comment on above: Order Comment: Speci men Type: ARTERIAL BLOOD SPECIMENOrdering Facility: [facility] Address: [address] [place] [address] Performed By: #### A LLBG ####[facility]ATORYCLIA [id number] [address] [place] Glucose [Mass/Vol] 147 mg/dL High 60-105 [facility] Comment on above: Order Comment: Speci men Type: ARTERIAL BLOOD SPECIMENOrdering Facility: [facility] Address: [address] [place] [address] Performed By: #### A LLBG ####[facility]ATORYCLIA [id number] [address] [place] HCO3 (Bld) [Moles/Vol] 27 mmol/L High 22-26 [facility] Comment on above: Order Comment: Speci men Type: ARTERIAL BLOOD SPECIMENOrdering Facility: [facility] Address: [address] [place] [address] Performed By: #### A LLBG ####[facility]ATORYCLIA [id number] [address] [facility] Hematocrit (Bld) [Volume fraction] 31.8 % Low 39.0-51.0 [facility] Comment on above: Order Comment: Speci men Type: ARTERIAL BLOOD SPECIMENOrdering Facility: [facility] Address: [address] [place] [address] Performed By: #### A LLBG ####[facility]ATORYCLIA [id number] [address] [facility] Hemoglobin (Bld) [Mass/Vol] 10.3 g/dL Low 13.0-17.0 [facility] Comment on above: Order Comment: Speci men Type: ARTERIAL BLOOD SPECIMENOrdering Facility: [facility] Address: [address] [place] [address] Performed By: #### A LLBG ####[facility]ATORYCLIA [id number] [address] [facility] Methemoglobin (Bld) [Mass fraction] 1.0 % Normal 0.0-1.5 [facility] Comment on above: Order Comment: Speci men Type: ARTERIAL BLOOD SPECIMENOrdering Facility: [facility] Address: [address] [place] [address] Performed By: #### A LLBG ####[facility]ATORYCLIA [id number] [address] [place] O2 THERAPY Ventilator Normal [facility] Comment on above: Order Comment: Speci men Type: ARTERIAL BLOOD SPECIMENOrdering Facility: [facility] Address: [address] [place] [address] Performed By: #### A LLBG ####[facility]ATORYCLIA [id number] [address] Oxygen (Bld) [Partial pressure] 78 mm Hg Low 85-95 [facility] Comment on above: Order Comment: Speci men Type: ARTERIAL BLOOD SPECIMENOrdering Facility: [facility] Address: [address] [place] [address] Performed By: #### A LLBG ####[facility]ATORYCLIA [id number] [address] Oxygen adjusted to patient's actual temperature (Bld) [Partial pressure] 79.7 mmHg Low 85-95 [facility] Comment on above: Order Comment: Speci men Type: ARTERIAL BLOOD SPECIMENOrdering Facility: [facility] Address: [address] [place] [address] Performed By: #### A LLBG ####[facility]ATORYCLIA [id number] [address] OXYGEN SATURATION, ARTERIAL 96 % Normal 95-98 [facility] Comment on above: Order Comment: Speci men Type: ARTERIAL BLOOD SPECIMENOrdering Facility: [facility] Address: [address] [place] [address] Performed By: #### A LLBG ####[facility]ATORYCLIA [id number] [address] Oxyhemoglobin (BldA) [Mass fraction] 94 % Low 95-98 [facility] Comment on above: Order Comment: Speci men Type: ARTERIAL BLOOD SPECIMENOrdering Facility: [facility] Address: [address] [place] [address] Performed By: #### A LLBG ####[facility]ATORYCLIA [id number] [address] [place] pH (Bld) 7.47 [pH] High 7.35-7.45 [facility] Comment on above: Order Comment: Speci men Type: ARTERIAL BLOOD SPECIMENOrdering Facility: [facility] Address: [address] [place] [address] Performed By: #### A LLBG ####[facility]ATORYCLIA [id number] [address] [place] pH adjusted to patient's actual temperature (Bld) 7.46 High 7.35-7.45 [facility] Comment on above: Order Comment: Speci men Type: ARTERIAL BLOOD SPECIMENOrdering Facility: [facility] Address: [address] [place] [address] Performed By: #### A LLBG ####[facility]ATORYCLIA [id number] [address] STATES [facility] Potassium [Moles/Vol] 3.7 mmol/L Normal 3.5-5.0 [facility] Comment on above: Order Comment: Speci men Type: ARTERIAL BLOOD SPECIMENOrdering Facility: [facility] Address: [address] [place] [address] Performed By: #### A LLBG ####[facility]ORATORYCLIA [id number] [address] STATES [facility] Sodium [Moles/Vol] 155 mmol/L High 136-144 [facility] Comment on above: Order Comment: Speci men Type: ARTERIAL BLOOD SPECIMENOrdering Facility: [facility] Address: [address] [place] [address] Performed By: #### A LLBG ####[facility]ATORYCLIA [id number] [address] Bacteria Spec Resp Culton Bacteria identified Respiratory culture Nom (Unsp spec) CULTURE, RESPIRATORY: Rare Normal respiratory chris present ORGANISM ID: 1 Few Yeast, not cryptococcus neoformans GRAM STAIN: No organisms seen Few Polymorphonuclear leukocytes Few Epithelial cells Abnormal [facility] Comment on above: Performed By: #### 3 2355-0 ####[facility]ATORYCLIA [id number] [address] [place] Basic metabolic 2000 panelon 06-16-2021 Anion gap [Moles/Vol] 9 mmol/L Normal 9-18 [facility] Comment on above: Order Comment: Speci men Type: BLOOD SPECIMENOrdering Facility: [facility] Address: [address] [place] [address] Performed By: #### 2 4321-2 ####[facility]ATORYCLIA [id number] [place] [address] [place] Calcium [Mass/Vol] 8.4 mg/dL Low 8.5-10.2 [facility] Comment on above: Order Comment: Speci men Type: BLOOD SPECIMENOrdering Facility: [facility] Address: [address] [place] [address] Performed By: #### 2 4321-2 ####[facility]ATORYCLIA [id number] [place] [address] [place] Chloride [Moles/Vol] 120 mmol/L High 97-105 [facility] Comment on above: Order Comment: Speci men Type: BLOOD SPECIMENOrdering Facility: [facility] Address: [address] [place] [address] Performed By: #### 2 4321-2 ####[facility]ATORYCLIA [id number] [place] [address] [place] CO2 [Moles/Vol] 27 mmol/L Normal 22-30 [facility] Comment on above: Order Comment: Speci men Type: BLOOD SPECIMENOrdering Facility: [facility] Address: [address] [place] [address] Performed By: #### 2 4321-2 ####[facility]ATORYCLIA [id number] [place] [address] [place] Creatinine [Mass/Vol] 0.75 mg/dL Normal 0.73-1.22 [facility] Comment on above: Order Comment: Speci men Type: BLOOD SPECIMENOrdering Facility: [facility] Address: [address] [place] [address] Performed By: #### 2 4321-2 ####[facility]ATORYCLIA [id number] [place] [address] [place] GFR/1.73 sq M.predicted MDRD (S/P/Bld) [Vol rate/Area] mL/min/{1.73_m2} Normal [facility] Comment on above: Order Comment: Speci men Type: BLOOD SPECIMENOrdering Facility: [facility] Address: [address] [id number] Result Comment: >60e GFR (Estimated GFR) Units [...] actual GFR. Performed By: #### 2 4321-2 ####[facility]ORATORYCLIA [id number] [place] [address] [place] Glucose [Mass/Vol] 160 mg/dL High 74-99 [facility] Comment on above: Order Comment: Speccara feldman Type: BLOOD SPECIMENOrdering Facility: [facility] Address: [address] [place] [address] Result Comment: The [place] [employer] (ADA) provides guidance for cutoff [...] Standards of Medical Care in Diabetes 2016, [place] [employer]. Diabetes Care. 2016.39(Suppl 1). Performed By: #### 2 4321-2 ####[facility]ORATORYCLIA [id number] [place] [address] [place] Potassium [Moles/Vol] 3.1 mmol/L Low 3.7-5.1 [facility] Comment on above: Order Comment: Speccara feldman Type: BLOOD SPECIMENOrdering Facility: [facility] Address: [address] Performed By: #### 2 4321-2 ####[facility]ORATORYCLIA [id number] [address] STATES [facility] Sodium [Moles/Vol] 156 mmol/L High 136-144 [facility] Comment on above: Order Comment: Speci men Type: BLOOD SPECIMENOrdering Facility: [facility] Address: [address] [place] [address] Performed By: #### 2 4321-2 ####[facility]ATORYCLIA [id number] [place] [address] [place] Urea nitrogen [Mass/Vol] 33 mg/dL High 9-24 [facility] Comment on above: Order Comment: Speci men Type: BLOOD SPECIMENOrdering Facility: [facility] Address: [address] [place] [address] Performed By: #### 2 4321-2 ####[facility]ATORYCLIA [id number] [address] [place] CASE MANAGEMon 06-16-2021 CASE MANAGEM Normal [facility] CBC panel Auto (Bld)on 06-16 Erythrocyte distribution width (RBC) [Ratio] 15.9 % High 11.5-15.0 [facility] Comment on above: Order Comment: Speci men Type: BLOOD SPECIMENOrdering Facility: [facility] Address: [address] [place] [address] Performed By: #### 5 8410-2 ####[facility]ATORYCLIA [id number] [address] [place] Hematocrit (Bld) [Volume fraction] 34.6 % Low 39.0-51.0 [facility] Comment on above: Order Comment: Speci men Type: BLOOD SPECIMENOrdering Facility: [facility] Address: [address] [place] [address] Performed By: #### 5 8410-2 ####[facility]ORATORYCLIA [id number] [address] [place] Hemoglobin (Bld) [Mass/Vol] 10.2 g/dL Low 13.0-17.0 [facility] Comment on above: Order Comment: Speci men Type: BLOOD SPECIMENOrdering Facility: [facility] Address: [address] [place] [address] Performed By: #### 5 8410-2 ####[facility]ATORYCLIA [id number] [address] MCH (RBC) [Entitic mass] 28.5 pg Normal 26.0-34.0 [facility] Comment on above: Order Comment: Speci men Type: BLOOD SPECIMENOrdering Facility: [facility] Address: [address] [place] [address] Performed By: #### 5 8410-2 ####[facility]ATORYCLIA [id number] [address] STATES [facility] MCHC (RBC) [Mass/Vol] 29.5 g/dL Low 30.5-36.0 [facility] Comment on above: Order Comment: Speci men Type: BLOOD SPECIMENOrdering Facility: [facility] Address: [address] [place] [address] Performed By: #### 5 8410-2 ####[facility]ATORYCLIA [id number] [address] STATES [facility] MCV (RBC) [Entitic vol] 96.6 fL Normal 80.0-100.0 [facility] Comment on above: Order Comment: Speci men Type: BLOOD SPECIMENOrdering Facility: [facility] Address: [address] [place] [address] Performed By: #### 5 8410-2 ####[facility]ORATORYCLIA [id number] [address] Nucleated RBC (Bld) [#/Vol] 10*3/uL Normal <0.01 [facility] Comment on above: Order Comment: Speci men Type: BLOOD SPECIMENOrdering Facility: [facility] Address: [address] [place] [address] Performed By: #### 5 8410-2 ####[facility]ATORYCLIA [id number] [address] [place] Platelet mean volume (Bld) [Entitic vol] 11.9 fL Normal 9.0-12.7 [facility] Comment on above: Order Comment: Speci men Type: BLOOD SPECIMENOrdering Facility: [facility] Address: [address] [place] [address] Performed By: #### 5 8410-2 ####[facility]ATORYCLIA [id number] [address] [place] Platelets (Bld) [#/Vol] 269 10*3/uL Normal 150-400 [facility] Comment on above: Order Comment: Speci men Type: BLOOD SPECIMENOrdering Facility: [facility] Address: [address] [place] [address] Performed By: #### 5 8410-2 ####[facility] LABORATORYCLIA [id number] [place] [address] [place] RBC (Bld) [#/Vol] 3.58 10*6/uL Low 4.20-6.00 [facility] Comment on above: Order Comment: Speci men Type: BLOOD SPECIMENOrdering Facility: [facility] Address: [address] [place] [address] Performed By: #### 5 8410-2 ####[facility] LABORATORYCLIA [id number] [place] [address] [place] WBC (Bld) [#/Vol] 13.11 10*3/uL High 3.70-11.00 [facility] Comment on above: Order Comment: Speci men Type: BLOOD SPECIMENOrdering Facility: [facility] Address: [address] [place] [address] Performed By: #### 5 8410-2 ####[facility] LABORATORYCLIA [id number] [address] [place] CONSULTon 06-16-2021 CONSULT Normal [facility] CONSULT PROGon 06-16-2021 CONSULT PROG Normal [facility] CT BRAIN WO IVCONon 06-16-[address] BRAIN WO IVCON Normal [facility] HEMOGLOBIN (HGB)on 2 Hemoglobin (Bld) [Mass/Vol] 8.9 g/dL Low 13.0-17.0 [facility] Comment on above: Order Comment: Speci men Type: BLOOD SPECIMENOrdering Facility: [facility] Address: [address] [place] [address] Performed By: #### H GB ####[facility]ORATORYCLIA [id number] [address] [place] [facility] Hemoglobin (Bld) [Mass/Vol] 9.6 g/dL Low 13.0-17.0 [facility] Comment on above: Order Comment: Speci men Type: BLOOD SPECIMENOrdering Facility: [facility] Address: [address] [place] [address] Performed By: #### H GB ####[facility]ORATORYCLIA [id number] [address] [place] Magnesium SerPl-mCncon 06-16 Magnesium [Mass/Vol] 2.7 mg/dL High 1.7-2.3 [facility] Comment on above: Order Comment: Speci men Type: BLOOD SPECIMENOrdering Facility: [facility] Address: [address] [place] [address] Performed By: #### 1 9123-9 ####[facility]ATORYCLIA [id number] [place] [address] [place] NURSING PROGon 06-16-2021 NURSING PROG Normal [facility] NUTRITIONon 06-16-2021 NUTRITION Normal [facility] Phosphate SerPl-mCncon 06-16 Phosphate [Mass/Vol] 1.4 mg/dL Low 2.7-4.8 [facility] Comment on above: Order Comment: Speci men Type: BLOOD SPECIMENOrdering Facility: [facility] Address: [address] [place] [address] Performed By: #### 2 777-1 ####[facility]ORATORYCLIA [id number] [place] [address] [place] STAPH AUREUS PCRon 2 S. aureus and MRSA panel MEGAN+probe (Nose) Normal Negative [facility] Comment on above: Order Comment: Speci men Type: SWAB OF INTERNAL NOSEOrdering Facility: [facility] Address: [address] [place] [address] Result Comment: Nega tive for Staphylococcus aureus by PCR.Negative for MRSA by PCR Performed By: #### S APCR ####[facility]ATORYCLIA [id number] [place] [address] [place] Sodium SerPl-sCncon 06-16-19 22 Sodium [Moles/Vol] 150 mmol/L High 136-144 [facility] Comment on above: Order Comment: Speci men Type: BLOOD SPECIMENOrdering Facility: [facility] Address: [address] [place] [address] Performed By: #### 2 951-2 ####[facility]ATORYCLIA [id number] [place] [address] [place] Sodium [Moles/Vol] 153 mmol/L High 136-144 [facility] Comment on above: Order Comment: Speci men Type: BLOOD SPECIMENOrdering Facility: [facility] Address: [address] [place] [address] Performed By: #### 2 951-2 ####[facility]ATORYCLIA [id number] [place] [address] [place] Sodium [Moles/Vol] 158 mmol/L High 136-144 [facility] Comment on above: Order Comment: Speci men Type: BLOOD SPECIMENOrdering Facility: [facility] Address: [address] [place] [address] Performed By: #### 2 951-2 ####[facility]ATORYCLIA [id number] [place] [address] [place] aPTT PPPon 06-16-2021 aPTT Coag (PPP) [Time] 61.8 s High 23.0-32.4 [facility] Comment on above: Order Comment: Speci men Type: BLOOD SPECIMENOrdering Facility: [facility] Address: [address] [place] [address] Performed By: #### 1 4979-9 ####[facility]ORYCLIA [id number] [address] [place] aPTT Coag (PPP) [Time] 57.6 s High 23.0-32.4 [facility] Comment on above: Order Comment: Speci men Type: BLOOD SPECIMENOrdering Facility: [facility] Address: [address] [place] [address] Performed By: #### 1 4979-9 ####[facility]ATORYCLIA [id number] [address] [place] ALLIED HEALTHon 06-15-2021 [...] Speci men Type: ARTERIAL BLOOD SPECIMENOrdering Facility: [facility] Address: [address] [place] [address] Performed By: #### A LLBG ####[facility]ATORYCLIA [id number] [address] [place] Body temperature 99.5 [degF] Normal [facility] Comment on above: Order Comment: Speci men Type: ARTERIAL BLOOD SPECIMENOrdering Facility: [facility] Address: [address] [place] [address] Performed By: #### A LLBG ####[facility]ATORYCLIA [id number] [address] [place] CALCIUM IONIZED, PH CORRECTED 1.34 mmol/L High 1.08-1.30 [facility] Comment on above: Order Comment: Speci men Type: ARTERIAL BLOOD SPECIMENOrdering Facility: [facility] Address: [address] [place] [address] Performed By: #### A LLBG ####[facility]ATORYCLIA [id number] [place] [address] [place] Calcium.ionized (BldV) [Mass/Vol] 1.29 mmol/L Normal 1.08-1.30 [facility] Comment on above: Order Comment: Speci men Type: ARTERIAL BLOOD SPECIMENOrdering Facility: [facility] Address: [address] [place] [address] Performed By: #### A LLBG ####[facility]ATORYCLIA [id number] [address] Carboxyhemoglobin (BldA) [Mass fraction] 1.3 % Normal 0.0-2.0 [facility] Comment on above: Order Comment: Speci men Type: ARTERIAL BLOOD SPECIMENOrdering Facility: [facility] Address: [address] [place] [address] Result Comment: Carb oxyhemoglobin Reference Range for Smokers: 2.0-8.0% Performed By: #### A LLBG ####[facility]ATORYCLIA [id number] [address] [place] CO2 (Bld) [Partial pressure] 37 mm Hg Normal 36-46 [facility] Comment on above: Order Comment: Speci men Type: ARTERIAL BLOOD SPECIMENOrdering Facility: [facility] Address: [address] [place] [address] Performed By: #### A LLBG ####[facility]ATORYCLIA [id number] [address] [place] CO2 [Moles/Vol] 24.6 mmol/L Normal 22-28 [facility] Comment on above: Order Comment: Speci men Type: ARTERIAL BLOOD SPECIMENOrdering Facility: [facility] Address: [address] [place] [address] Performed By: #### A LLBG ####[facility]ORATORYCLIA [id number] [address] CO2 adjusted to patient's actual temperature (Bld) [Partial pressure] 38 mmHg Normal 36-46 [facility] Comment on above: Order Comment: Speci men Type: ARTERIAL BLOOD SPECIMENOrdering Facility: [facility] Address: [address] [place] [address] Performed By: #### A LLBG ####[facility]ATORYCLIA [id number] [address] [place] FIO2 100 % Normal [facility] Comment on above: Order Comment: Speci men Type: ARTERIAL BLOOD SPECIMENOrdering Facility: [facility] Address: [address] [place] [address] Performed By: #### A LLBG ####[facility]ATORYCLIA [id number] [address] [place] Glucose [Mass/Vol] 159 mg/dL High 60-105 [facility] Comment on above: Order Comment: Speci men Type: ARTERIAL BLOOD SPECIMENOrdering Facility: [facility] Address: [address] [place] [address] Performed By: #### A LLBG ####[facility]ATORYCLIA [id number] [address] [place] HCO3 (Bld) [Moles/Vol] 27 mmol/L High 22-26 [facility] Comment on above: Order Comment: Speci men Type: ARTERIAL BLOOD SPECIMENOrdering Facility: [facility] Address: [address] [place] [address] Performed By: #### A LLBG ####[facility]ATORYCLIA [id number] [address] Hematocrit (Bld) [Volume fraction] 31.0 % Low 39.0-51.0 [facility] Comment on above: Order Comment: Speci men Type: ARTERIAL BLOOD SPECIMENOrdering Facility: [facility] Address: [facility] [place] [address] Performed By: #### A LLBG ####[facility]ORYCLIA [id number] [address] Hemoglobin (Bld) [Mass/Vol] 10.0 g/dL Low 13.0-17.0 [facility] Comment on above: Order Comment: Speci men Type: ARTERIAL BLOOD SPECIMENOrdering Facility: [facility] Address: [address] [place] [address] Performed By: #### A LLBG ####[facility] LABORATORYCLIA [id number] [address] Methemoglobin (Bld) [Mass fraction] % Normal 0.0-1.5 [facility] Comment on above: Order Comment: Speci men Type: ARTERIAL BLOOD SPECIMENOrdering Facility: [facility] Address: [address] [place] [address] Performed By: #### A LLBG ####[facility]ATORYCLIA [id number] [address] O2 THERAPY Ventilator Normal [facility] Comment on above: Order Comment: Speci men Type: ARTERIAL BLOOD SPECIMENOrdering Facility: [facility] Address: [address] [place] [address] Performed By: #### A LLBG ####[facility]ATORYCLIA [id number] [address] Oxygen (Bld) [Partial pressure] 279 mm Hg High 85-95 [facility] Comment on above: Order Comment: Speci men Type: ARTERIAL BLOOD SPECIMENOrdering Facility: [facility] Address: [address] [place] [address] Performed By: #### A LLBG ####[facility]ORYCLIA [id number] [address] Oxygen adjusted to patient's actual temperature (Bld) [Partial pressure] 281 mmHg High 85-95 [facility] Comment on above: Order Comment: Speci men Type: ARTERIAL BLOOD SPECIMENOrdering Facility: [facility] Address: [address] [place] [address] Performed By: #### A LLBG ####[facility]ATORYCLIA [id number] [address] [place] OXYGEN SATURATION, ARTERIAL 100 % High 95-98 [facility] Comment on above: Order Comment: Speci men Type: ARTERIAL BLOOD SPECIMENOrdering Facility: [facility] Address: [address] [place] [address] Performed By: #### A LLBG ####[facility]ATORYCLIA [id number] [address] [place] Oxyhemoglobin (BldA) [Mass fraction] 98 % Normal 95-98 [facility] Comment on above: Order Comment: Speci men Type: ARTERIAL BLOOD SPECIMENOrdering Facility: [facility] Address: [address] [place] [address] Performed By: #### A LLBG ####[facility]ATORYCLIA [id number] [address] [place] pH (Bld) 7.47 [pH] High 7.35-7.45 [facility] Comment on above: Order Comment: Speci men Type: ARTERIAL BLOOD SPECIMENOrdering Facility: [facility] Address: [address] [place] [address] Performed By: #### A LLBG ####[facility]ATORYCLIA [id number] [address] pH adjusted to patient's actual temperature (Bld) 7.46 High 7.35-7.45 [facility] Comment on above: Order Comment: Speci men Type: ARTERIAL BLOOD SPECIMENOrdering Facility: [facility] Address: [address] [place] [address] Performed By: #### A LLBG ####[facility]ATORYCLIA [id number] [address] [place] Potassium [Moles/Vol] 3.6 mmol/L Normal 3.5-5.0 [facility] Comment on above: Order Comment: Speci men Type: ARTERIAL BLOOD SPECIMENOrdering Facility: [facility] Address: [address] [place] [address] Performed By: #### A LLBG ####[facility]ATORYCLIA [id number] [address] [place] Sodium [Moles/Vol] 162 mmol/L High 136-144 [facility] Comment on above: Order Comment: Speci men Type: ARTERIAL BLOOD SPECIMENOrdering Facility: [facility] Address: [address] [place] [address] Performed By: #### A LLBG ####[facility]ATORYCLIA [id number] [address] [place] Base excess Calc (Bld) [Moles/Vol] 4 mmol/L High 0-2 [facility] Comment on above: Order Comment: Speci men Type: ARTERIAL BLOOD SPECIMENOrdering Facility: [facility] Address: [address] [place] [address] Performed By: #### A LLBG ####[facility]ATORYCLIA [id number] [address] Body temperature 100.58 [degF] Normal [facility] Comment on above: Order Comment: Speci men Type: ARTERIAL BLOOD SPECIMENOrdering Facility: [facility] Address: [address] [place] [address] Performed By: #### A LLBG ####[facility]ATORYCLIA [id number] [address] [place] CALCIUM IONIZED, PH CORRECTED 1.34 mmol/L High 1.08-1.30 [facility] Comment on above: Order Comment: Speci men Type: ARTERIAL BLOOD SPECIMENOrdering Facility: [facility] Address: [address] [place] [address] Performed By: #### A LLBG ####[facility]ATORYCLIA [id number] [address] [place] Calcium.ionized (BldV) [Mass/Vol] 1.33 mmol/L High 1.08-1.30 [facility] Comment on above: Order Comment: Speci men Type: ARTERIAL BLOOD SPECIMENOrdering Facility: [facility] Address: [address] [place] [address] Performed By: #### A LLBG ####[facility]ATORYCLIA [id number] [address] [place] Carboxyhemoglobin (BldA) [Mass fraction] 1.5 % Normal 0.0-2.0 [facility] Comment on above: Order Comment: Speci men Type: ARTERIAL BLOOD SPECIMENOrdering Facility: [facility] Address: [address] [place] [address] Result Comment: Carb oxyhemoglobin Reference Range for Smokers: 2.0-8.0% Performed By: #### A LLBG ####[facility]ATORYCLIA [id number] [address] [place] CO2 (Bld) [Partial pressure] 46 mm Hg Normal 36-46 [facility] Comment on above: Order Comment: Speci men Type: ARTERIAL BLOOD SPECIMENOrdering Facility: [facility] Address: [address] [place] [address] Performed By: #### A LLBG ####[facility]ATORYCLIA [id number] [address] [place] CO2 [Moles/Vol] 26.4 mmol/L Normal 22-28 [facility] Comment on above: Order Comment: Speci men Type: ARTERIAL BLOOD SPECIMENOrdering Facility: [facility] Address: [address] [place] [address] Performed By: #### A LLBG ####[facility]ORATORYCLIA [id number] [address] [place] CO2 adjusted to patient's actual temperature (Bld) [Partial pressure] 48 mmHg High 36-46 [facility] Comment on above: Order Comment: Speci men Type: ARTERIAL BLOOD SPECIMENOrdering Facility: [facility] Address: [address] [place] [address] Performed By: #### A LLBG ####[facility]ATORYCLIA [id number] [address] [place] FIO2 100 % Normal [facility] Comment on above: Order Comment: Speci men Type: ARTERIAL BLOOD SPECIMENOrdering Facility: [facility] Address: [address] [place] [address] Performed By: #### A LLBG ####[facility]ATORYCLIA [id number] [address] [place] Glucose [Mass/Vol] 132 mg/dL High 60-105 [facility] Comment on above: Order Comment: Speci men Type: ARTERIAL BLOOD SPECIMENOrdering Facility: [facility] Address: [address] [place] [address] Performed By: #### A LLBG ####[facility]ATORYCLIA [id number] [address] [place] HCO3 (Bld) [Moles/Vol] 29 mmol/L High 22-26 [facility] Comment on above: Order Comment: Speci men Type: ARTERIAL BLOOD SPECIMENOrdering Facility: [facility] Address: [address] [place] [address] Performed By: #### A LLBG ####[facility]ATORYCLIA [id number] [address] [place] Hematocrit (Bld) [Volume fraction] 32.3 % Low 39.0-51.0 [facility] Comment on above: Order Comment: Speci men Type: ARTERIAL BLOOD SPECIMENOrdering Facility: [facility] Address: [address] [place] [address] Performed By: #### A LLBG ####[facility]ATORYCLIA [id number] [address] [place] Hemoglobin (Bld) [Mass/Vol] 10.4 g/dL Low 13.0-17.0 [facility] Comment on above: Order Comment: Speci men Type: ARTERIAL BLOOD SPECIMENOrdering Facility: [facility] Address: [address] [place] [address] Performed By: #### A LLBG ####[facility]ATORYCLIA [id number] [address] Methemoglobin (Bld) [Mass fraction] % Normal 0.0-1.5 [facility] Comment on above: Order Comment: Speci men Type: ARTERIAL BLOOD SPECIMENOrdering Facility: [facility] Address: [address] [place] [address] Performed By: #### A LLBG ####[facility]ATORYCLIA [id number] [address] O2 THERAPY NR=Non-Rebreather Mask Normal [facility] Comment on above: Order Comment: Speci men Type: ARTERIAL BLOOD SPECIMENOrdering Facility: [facility] Address: [address] [place] [address] Performed By: #### A LLBG ####[facility]ATORYCLIA [id number] [address] [place] Oxygen (Bld) [Partial pressure] 130 mm Hg High 85-95 [facility] Comment on above: Order Comment: Speci men Type: ARTERIAL BLOOD SPECIMENOrdering Facility: [facility] Address: [address] [place] [address] Performed By: #### A LLBG ####[facility]ATORYCLIA [id number] [address] Oxygen adjusted to patient's actual temperature (Bld) [Partial pressure] 136 mmHg High 85-95 [facility] Comment on above: Order Comment: Speci men Type: ARTERIAL BLOOD SPECIMENOrdering Facility: [facility] Address: [address] [place] [address] Performed By: #### A LLBG ####[facility]ORATORYCLIA [id number] [address] [place] OXYGEN SATURATION, ARTERIAL 99 % High 95-98 [facility] Comment on above: Order Comment: Speci men Type: ARTERIAL BLOOD SPECIMENOrdering Facility: [facility] Address: [address] [place] [address] Performed By: #### A LLBG ####[facility]ATORYCLIA [id number] [address] Oxyhemoglobin (BldA) [Mass fraction] 97 % Normal 95-98 [facility] Comment on above: Order Comment: Speci men Type: ARTERIAL BLOOD SPECIMENOrdering Facility: [facility] Address: [address] [place] [address] Performed By: #### A LLBG ####[facility]ORATORYCLIA [id number] [place] [address] [place] pH (Bld) 7.41 [pH] Normal 7.35-7.45 [facility] Comment on above: Order Comment: Speci men Type: ARTERIAL BLOOD SPECIMENOrdering Facility: [facility] Address: [address] [place] [address] Performed By: #### A LLBG ####[facility]ATORYCLIA [id number] [address] pH adjusted to patient's actual temperature (Bld) 7.40 Normal 7.35-7.45 [facility] Comment on above: Order Comment: Speci men Type: ARTERIAL BLOOD SPECIMENOrdering Facility: [facility] Address: [address] [place] [address] Performed By: #### A LLBG ####[facility]ATORYCLIA [id number] [address] [place] Potassium [Moles/Vol] 3.8 mmol/L Normal 3.5-5.0 [facility] Comment on above: Order Comment: Speci men Type: ARTERIAL BLOOD SPECIMENOrdering Facility: [facility] Address: [address] [place] [address] Performed By: #### A LLBG ####[facility]ATORYCLIA [id number] [place] [address] [place] Sodium [Moles/Vol] 166 mmol/L High 136-144 [facility] Comment on above: Order Comment: Speci men Type: ARTERIAL BLOOD SPECIMENOrdering Facility: [facility] Address: [place] [id number] Performed By: #### A LLBG ####[facility]ORATORYCLIA [id number] [place], [place] [id number] [place] [address] [place] [facility] Bacteria Bld Culton 06-15-19 Bacteria identified Cx Nom (Bld) CULTURE, BLOOD: No growth 5 days Normal [facility] Comment on above: Performed By: #### 6 00-7 ####[facility]ORATORYCLIA [id number] [address] OF [facility] Basic metabolic 2000 panelon 06-15-2021 Anion gap [Moles/Vol] 9 mmol/L Normal 9-18 [facility] Comment on above: Order Comment: Speci men Type: BLOOD SPECIMEN Performed By: #### 2 4321-2, 2776-05, ####[facility]ATORYCLIA [id number] [address] [place] Calcium [Mass/Vol] 9.0 mg/dL Normal 8.5-10.2 [facility] Comment on above: Order Comment: Speci men Type: BLOOD SPECIMEN Performed By: #### 2 4321-2, 2776-05, ####[facility]ATORYCLIA [id number] [place], [place] [id number] [place] [address] [place] Chloride [Moles/Vol] 125 mmol/L High 97-105 [facility] Comment on above: Order Comment: Speci men Type: BLOOD SPECIMEN Performed By: #### 2 4321-2, 2776-, ####[facility]ATORYCLIA [id number] [place] [address] [place] CO2 [Moles/Vol] 29 mmol/L Normal 22-30 [facility] Comment on above: Order Comment: Speci men Type: BLOOD SPECIMEN Performed By: #### 2 4321-2, 2776-05, ####[facility]ATORYCLIA [id number] [place] [address] [place] Creatinine [Mass/Vol] 0.81 mg/dL Normal 0.73-1.22 [facility] Comment on above: Order Comment: Speci men Type: BLOOD SPECIMEN Performed By: #### 2 4321-2, 2777-1, ####[facility]ATORYCLIA [id number] [place] [address] [place] GFR/1.73 sq M.predicted [...] GFR. Performed By: #### 2 4321-2, 2777-, ####[facility]PITALIA [id number] [place] [address] [place] Glucose [Mass/Vol] 124 mg/dL High 74-99 [facility] Comment on above: Order Comment: Speci men Type: BLOOD SPECIMEN Result Comment: The [place] [employer] (ADA) provides guidance for cutoff [...] Standards of Medical Care in Diabetes 2016, [place] [employer]. Diabetes Care. 2016.39(Suppl 1). Performed By: #### 2 4321-2, 2776-, ####[facility]ATORYCLIA [id number] [place], [place] [id number] [place] [address] [place] [facility] Potassium [Moles/Vol] 3.8 mmol/L Normal 3.7-5.1 [facility] Comment on above: Order Comment: Speci men Type: BLOOD SPECIMEN Performed By: #### 2 4321-2, 2776-05, ####[facility]ATORYCLIA [id number] [address] Sodium [Moles/Vol] 163 mmol/L High 136-144 [facility] Comment on above: Order Comment: Speci men Type: BLOOD SPECIMEN Performed By: #### 2 4321-2, 2776-05, ####[facility]ORYCLIA [id number] [address] STATES [facility] Urea nitrogen [Mass/Vol] 35 mg/dL High 9-24 [facility] Comment on above: Order Comment: Speci men Type: BLOOD SPECIMEN Performed By: #### 2 4321-2, 2776-05, ####[facility]ORYCLIA [id number] [address] STATES [facility] CBC panel Auto (Bld)on 06-15 Erythrocyte distribution width (RBC) [Ratio] 16.3 % High 11.5-15.0 [facility] Comment on above: Order Comment: Speci men Type: BLOOD SPECIMENOrdering Facility: [facility] Address: [address] [place] [address] Performed By: #### 5 8410-2 ####[facility]ORYCLIA [id number] [address] STATES OF [facility] Hematocrit (Bld) [Volume fraction] 30.0 % Low 39.0-51.0 [facility] Comment on above: Order Comment: Speci men Type: BLOOD SPECIMENOrdering Facility: [facility] Address: [address] [place] [address] Performed By: #### 5 8410-2 ####[facility]ORYCLIA [id number] [address] STATES [place] [facility] Hemoglobin (Bld) [Mass/Vol] 8.9 g/dL Low 13.0-17.0 [facility] Comment on above: Order Comment: Speci men Type: BLOOD SPECIMENOrdering Facility: [facility] Address: [address] [place] [address] Performed By: #### 5 8410-2 ####[facility]ORYCLIA [id number] [address] [place] MCH (RBC) [Entitic mass] 28.7 pg Normal 26.0-34.0 [facility] Comment on above: Order Comment: Speci men Type: BLOOD SPECIMENOrdering Facility: [facility] Address: [address] [place] [address] Performed By: #### 5 8410-2 ####[facility]ORYCLIA [id number] [address] MCHC (RBC) [Mass/Vol] 29.7 g/dL Low 30.5-36.0 [facility] Comment on above: Order Comment: Speci men Type: BLOOD SPECIMENOrdering Facility: [facility] Address: [address] [place] [address] Performed By: #### 5 8410-2 ####[facility]ORYCLIA [id number] [address] [place] MCV (RBC) [Entitic vol] 96.8 fL Normal 80.0-100.0 [facility] Comment on above: Order Comment: Speci men Type: BLOOD SPECIMENOrdering Facility: [facility] Address: [address] [place] [address] Performed By: #### 5 8410-2 ####[facility]ORYCLIA [id number] [address] [place] Nucleated RBC (Bld) [#/Vol] 10*3/uL Normal <0.01 [facility] Comment on above: Order Comment: Speci men Type: BLOOD SPECIMENOrdering Facility: [facility] Address: [address] [place] [address] Performed By: #### 5 8410-2 ####[facility]ATORYCLIA [id number] [address] [place] Platelet mean volume (Bld) [Entitic vol] 12.3 fL Normal 9.0-12.7 [facility] Comment on above: Order Comment: Speci men Type: BLOOD SPECIMENOrdering Facility: [facility] Address: [address] [place] [address] Performed By: #### 5 8410-2 ####[facility]ORYCLIA [id number] [address] [place] Platelets (Bld) [#/Vol] 226 10*3/uL Normal 150-400 [facility] Comment on above: Order Comment: Speci men Type: BLOOD SPECIMENOrdering Facility: [facility] Address: [address] [place] [address] Performed By: #### 5 8410-2 ####[facility]ORYCLIA [id number] [address] [place] RBC (Bld) [#/Vol] 3.10 10*6/uL Low 4.20-6.00 [facility] Comment on above: Order Comment: Speci men Type: BLOOD SPECIMENOrdering Facility: [facility] Address: [address] [place] [address] Performed By: #### 5 8410-2 ####[facility]ORYCLIA [id number] [address] [place] WBC (Bld) [#/Vol] 10.77 10*3/uL Normal 3.70-11.00 [facility] Comment on above: Order Comment: Speci men Type: BLOOD SPECIMENOrdering Facility: [facility] Address: [address] [place] [address] Performed By: #### 5 8410-2 ####[facility]ORYCLIA [id number] [address] Erythrocyte distribution width (RBC) [Ratio] 16.2 % High 11.5-15.0 [facility] Comment on above: Order Comment: Speci men Type: BLOOD SPECIMENOrdering Facility: [facility] Address: [address] [place] [address] Performed By: #### 5 8410-2 ####[facility]ATORYCLIA [id number] [address] Hematocrit (Bld) [Volume fraction] 34.8 % Low 39.0-51.0 [facility] Comment on above: Order Comment: Speci men Type: BLOOD SPECIMENOrdering Facility: [facility] Address: [address] [place] [address] Performed By: #### 5 8410-2 ####[facility]ORYCLIA [id number] [address] Hemoglobin (Bld) [Mass/Vol] 10.0 g/dL Low 13.0-17.0 [facility] Comment on above: Order Comment: Speci men Type: BLOOD SPECIMENOrdering Facility: [facility] Address: [address] [place] [address] Performed By: #### 5 8410-2 ####[facility]ORYCLIA [id number] [address] MCH (RBC) [Entitic mass] 27.5 pg Normal 26.0-34.0 [facility] Comment on above: Order Comment: Speci men Type: BLOOD SPECIMENOrdering Facility: [facility] Address: [address] [place] [address] Performed By: #### 5 8410-2 ####[facility]ORYCLIA [id number] [address] MCHC (RBC) [Mass/Vol] 28.7 g/dL Low 30.5-36.0 [facility] Comment on above: Order Comment: Speci men Type: BLOOD SPECIMENOrdering Facility: [facility] Address: [address] [place] [address] Performed By: #### 5 8410-2 ####[facility]ATORYCLIA [id number] [address] [place] MCV (RBC) [Entitic vol] 95.6 fL Normal 80.0-100.0 [facility] Comment on above: Order Comment: Speci men Type: BLOOD SPECIMENOrdering Facility: [facility] Address: [address] [place] [address] Performed By: #### 5 8410-2 ####[facility]ORYCLIA [id number] [address] Nucleated RBC (Bld) [#/Vol] 10*3/uL Normal <0.01 [facility] Comment on above: Order Comment: Speci men Type: BLOOD SPECIMENOrdering Facility: [facility] Address: [address] [place] [address] Performed By: #### 5 8410-2 ####[facility]ORYCLIA [id number] [address] [place] Platelet mean volume (Bld) [Entitic vol] 11.9 fL Normal 9.0-12.7 [facility] Comment on above: Order Comment: Speci men Type: BLOOD SPECIMENOrdering Facility: [facility] Address: [address] [place] [address] Performed By: #### 5 8410-2 ####[facility]ATORYCLIA [id number] [address] Platelets (Bld) [#/Vol] 246 10*3/uL Normal 150-400 [facility] Comment on above: Order Comment: Speci men Type: BLOOD SPECIMENOrdering Facility: [facility] Address: [address] [place] [address] Performed By: #### 5 8410-2 ####[facility]ORYCLIA [id number] [address] RBC (Bld) [#/Vol] 3.64 10*6/uL Low 4.20-6.00 [facility] Comment on above: Order Comment: Speci men Type: BLOOD SPECIMENOrdering Facility: [facility] Address: [address] [place] [address] Performed By: #### 5 8410-2 ####[facility]ORYCLIA [id number] [address] WBC (Bld) [#/Vol] 11.45 10*3/uL High 3.70-11.00 [facility] Comment on above: Order Comment: Speci men Type: BLOOD SPECIMENOrdering Facility: [facility] Address: [address] [place] [address] Performed By: #### 5 8410-2 ####[facility]ORYCLIA [id number] [address] Erythrocyte distribution width (RBC) [Ratio] 15.9 % High 11.5-15.0 [facility] Comment on above: Order Comment: Speci men Type: BLOOD SPECIMEN Performed By: #### 5 8410-2 ####[facility]ORYCLIA [id number] [address] Hematocrit (Bld) [Volume fraction] 35.8 % Low 39.0-51.0 [facility] Comment on above: Order Comment: Speci men Type: BLOOD SPECIMEN Performed By: #### 5 8410-2 ####[facility]ORYCLIA [id number] [address] Hemoglobin (Bld) [Mass/Vol] 10.4 g/dL Low 13.0-17.0 [facility] Comment on above: Order Comment: Speci men Type: BLOOD SPECIMEN Performed By: #### 5 8410-2 ####[facility]ORYCLIA [id number] [address] MCH (RBC) [Entitic mass] 28.0 pg Normal 26.0-34.0 [facility] Comment on above: Order Comment: Speci men Type: BLOOD SPECIMEN Performed By: #### 5 8410-2 ####[facility]ORYCLIA [id number] [address] MCHC (RBC) [Mass/Vol] 29.1 g/dL Low 30.5-36.0 [facility] Comment on above: Order Comment: Speci men Type: BLOOD SPECIMEN Performed By: #### 5 8410-2 ####[facility]ORYCLIA [id number] [address] MCV (RBC) [Entitic vol] 96.2 fL Normal 80.0-100.0 [facility] Comment on above: Order Comment: Speci men Type: BLOOD SPECIMEN Performed By: #### 5 8410-2 ####[facility]ORYCLIA [id number] [address] Nucleated RBC (Bld) [#/Vol] 10*3/uL Normal <0.01 [facility] Comment on above: Order Comment: Speci men Type: BLOOD SPECIMEN Performed By: #### 5 8410-2 ####[facility]ORYCLIA [id number] [address] Platelet mean volume (Bld) [Entitic vol] 11.6 fL Normal 9.0-12.7 [facility] Comment on above: Order Comment: Speci men Type: BLOOD SPECIMEN Performed By: #### 5 8410-2 ####[facility]ORYCLIA [id number] [address] Platelets (Bld) [#/Vol] 265 10*3/uL Normal 150-400 [facility] Comment on above: Order Comment: Speci men Type: BLOOD SPECIMEN Performed By: #### 5 8410-2 ####[facility]ATORYCLIA [id number] [place] [address] [facility] RBC (Bld) [#/Vol] 3.72 10*6/uL Low 4.20-6.00 [facility] Comment on above: Order Comment: Speci men Type: BLOOD SPECIMEN Performed By: #### 5 8410-2 ####[facility]ORYCLIA [id number] [address] WBC (Bld) [#/Vol] 12.24 10*3/uL High 3.70-11.00 [facility] Comment on above: Order Comment: Speci men Type: BLOOD SPECIMEN Performed By: #### 5 8410-2 ####[facility]ORYCLIA [id number] [address] CONSULTon 06-15-2021 CONSULT Normal [facility] [...] Comment: Speci men Type: URINE SPECIMENOrdering Facility: [facility] Address: [address] [place] [address] Performed By: #### U TPR, 53091-0, 35631-4, 28913-6 ####[facility]ATORYCLIA [id number] [address] Comprehensive metabolic 2000 panelon 06-15-2021 Albumin [Mass/Vol] 2.8 g/dL Low 3.9-4.9 [facility] Comment on above: Order Comment: Speci men Type: BLOOD SPECIMENOrdering Facility: [facility] Address: [address] [place] [address] Performed By: #### 2 4323-8 ####[facility] LABORATORYCLIA [id number] [address] [place] ALP [Catalytic activity/Vol] 74 U/L Normal 38-113 [facility] Comment on above: Order Comment: Speci men Type: BLOOD SPECIMENOrdering Facility: [facility] Address: [address] [place] [address] Performed By: #### 2 4323-8 ####[facility]ORYCLIA [id number] [address] [place] ALT With P-5'-P [Catalytic activity/Vol] 50 U/L Normal 10-54 [facility] Comment on above: Order Comment: Speci men Type: BLOOD SPECIMENOrdering Facility: [facility] Address: [address] [place] [address] Performed By: #### 2 4323-8 ####[facility]ATORYCLIA [id number] [address] Anion gap [Moles/Vol] 12 mmol/L Normal 9-18 [facility] Comment on above: Order Comment: Speci men Type: BLOOD SPECIMENOrdering Facility: [facility] Address: [address] [place] [address] Performed By: #### 2 4323-8 ####[facility]ATORYCLIA [id number] [address] [place] AST With P-5'-P [Catalytic activity/Vol] 36 U/L Normal 14-40 [facility] Comment on above: Order Comment: Speci men Type: BLOOD SPECIMENOrdering Facility: [facility] Address: [address] [place] [address] Performed By: #### 2 4323-8 ####[facility]ATORYCLIA [id number] [address] [place] Bilirubin [Mass/Vol] 0.5 mg/dL Normal 0.2-1.3 [facility] Comment on above: Order Comment: Speci men Type: BLOOD SPECIMENOrdering Facility: [facility] Address: [address] [place] [address] Performed By: #### 2 4323-8 ####[facility]ATORYCLIA [id number] [place] [address] [place] Calcium [Mass/Vol] 8.8 mg/dL Normal 8.5-10.2 [facility] Comment on above: Order Comment: Speci men Type: BLOOD SPECIMENOrdering Facility: [facility] Address: [address] [place] [address] Performed By: #### 2 4323-8 ####[facility]ATORYCLIA [id number] [place] [address] [place] Chloride [Moles/Vol] 126 mmol/L High 97-105 [facility] Comment on above: Order Comment: Speci men Type: BLOOD SPECIMENOrdering Facility: [facility] Address: [address] [place] [address] Performed By: #### 2 4323-8 ####[facility]ATORYCLIA [id number] [place] [address] [place] CO2 [Moles/Vol] 24 mmol/L Normal 22-30 [facility] Comment on above: Order Comment: Speci men Type: BLOOD SPECIMENOrdering Facility: [facility] Address: [address] [place] [address] Performed By: #### 2 4323-8 ####[facility]ORYCLIA [id number] [address] [place] Creatinine [Mass/Vol] 0.84 mg/dL Normal 0.73-1.22 [facility] Comment on above: Order Comment: Speci men Type: BLOOD SPECIMENOrdering Facility: [facility] Address: [address] [place] [address] Performed By: #### 2 4323-8 ####[facility]ATORYCLIA [id number] [place] [address] [place] GFR/1.73 sq M.predicted MDRD (S/P/Bld) [Vol rate/Area] mL/min/{1.73_m2} Normal [facility] Comment on above: Order Comment: Shira feldman Type: BLOOD SPECIMENOrdering Facility: [facility] Address: [address] [place] [phone] Result Comment: >60e GFR (Estimated GFR) Units [...] actual GFR. Performed By: #### 2 4323-8 ####[facility]ATORYCLIA [id number] [place] [address] [place] Glucose [Mass/Vol] 142 mg/dL High 74-99 [facility] Comment on above: Order Comment: Johncara feldman Type: BLOOD SPECIMENOrdering Facility: [facility] Address: [address] [place] [phone] Result Comment: The [place] [employer] (ADA) provides guidance for cutoff [...] Standards of Medical Care in Diabetes 2016, [place] [employer]. Diabetes Care. 2016.39(Suppl 1). Performed By: #### 2 4323-8 ####[facility]ATORYCLIA [id number] [place] [id number] [place] Potassium [Moles/Vol] 3.8 mmol/L Normal 3.7-5.1 [facility] Comment on above: Order Comment: Speci men Type: BLOOD SPECIMENOrdering Facility: [facility] Address: [address] [place] [address] Performed By: #### 2 4323-8 ####[facility]ATORYCLIA [id number] [place] [address] [place] Protein [Mass/Vol] 6.1 g/dL Low 6.3-8.0 [facility] Comment on above: Order Comment: Speci men Type: BLOOD SPECIMENOrdering Facility: [facility] Address: [address] [place] [address] Performed By: #### 2 4323-8 ####[facility]ATORYCLIA [id number] [place] [address] [place] Sodium [Moles/Vol] 162 mmol/L High 136-144 [facility] Comment on above: Order Comment: Speci men Type: BLOOD SPECIMENOrdering Facility: [facility] Address: [address] [place] [address] Performed By: #### 2 4323-8 ####[facility]ATORYCLIA [id number] [place] [address] [place] Urea nitrogen [Mass/Vol] 33 mg/dL High 9-24 [facility] Comment on above: Order Comment: Speci men Type: BLOOD SPECIMENOrdering Facility: [facility] Address: [address] [place] [address] Performed By: #### 2 4323-8 ####[facility]ATORYCLIA [id number] [place] [address] [place] Creatinine Unsp time (U) [Ma ss/Vol]on 06-15-2021 Creatinine (U) [Mass/Vol] 87.0 mg/dL Normal 46.8-314.5 [facility] Comment on above: Order Comment: Speci men Type: URINE SPECIMENOrdering Facility: [facility] Address: [address] [place] [address] Performed By: #### U TPR, 44139-6, 84137-4, 04160-3 ####[facility]ATORYCLIA [id number] [address] [place] HIGH SENSITIVITY TROPONIN To n 06-15-2021 HIGH SENSITIVITY TAMIKO 23 ng/L High <12 [facility] Comment on above: Order Comment: Speci men Type: BLOOD SPECIMENOrdering Facility: [facility] Address: [address] [place] [address] Result Comment: When assessing risk for acute [...] day MACE. Performed By: #### P ROCAL, 67420-9, HSTNT ####[facility]PITALCLIA [id number] [address] OF [facility] Lactate (Bld) [Moles/Vol]on 06-15-2021 Lactate [Moles/Vol] 0.8 mmol/L Normal 0.5-2.2 [facility] Comment on above: Order Comment: Speci men Type: BLOOD SPECIMENOrdering Facility: [facility] Address: [address] [place] [address] Performed By: #### 3 2693-4 ####[facility]ATORYCLIA [id number] [address] [place] Magnesium SerPl-mCncon 06-15 Magnesium [Mass/Vol] 3.0 mg/dL High 1.7-2.3 [facility] Comment on above: Order Comment: Speci men Type: BLOOD SPECIMEN Performed By: #### 2 4321-2, 2777-1, 68404-2 ####[facility]ATORYCLIA [id number] [place] [address] [place] NT-proBNP SerPl-mCncon 06-15 Natriuretic peptide.B prohormone N-Terminal [Mass/Vol] 265 pg/mL High <125 [facility] Comment on above: Order Comment: Speci men Type: BLOOD SPECIMENOrdering Facility: [facility] Address: [address] [place] [address] Performed By: #### P JULIANNE, 54096-3, HSTNT ####[facility]ATORYCLIA [id number] [address] [place] Osmolality Uron 06-15-2021 Osmolality (U) [Osmolality] 606 mosm/kg Normal 50-1,200 [facility] Comment on above: Order Comment: Speci men Type: URINE SPECIMENOrdering Facility: [facility] Address: [address] [place] [address] Performed By: #### 2 695-5 ####[facility] HOSPITALIA [id number] [address] [place] PROCALCITONIN (LAB)on 2021 Procalcitonin [Mass/Vol] 0.21 ng/mL High <0.09 [facility] Comment on above: Order Comment: Speci men Type: BLOOD SPECIMENOrdering Facility: [facility] Address: [address] [place] [address] Result Comment: For a guided interpretation of test results, please visit the Change in Procalcitonin Calculator, [email or web address]. Performed By: #### P JULIANNE, 2951-2 ####[facility]ORATORYCLIA [id number] [address] STATES [facility] Procalcitonin [Mass/Vol] 0.17 ng/mL High <0.09 [facility] Comment on above: Order Comment: Speci men Type: BLOOD SPECIMENOrdering Facility: [facility] Address: [address] [place] [address] Result Comment: For a guided interpretation of test results, please visit the Change in Procalcitonin Calculator, [email or web address]. Performed By: #### P JULIANNE, 10118-6, HSTNT ####[facility]PITALCLIA [id number] [place] [id number] [place] PROTEIN RANDOM URon 06-15-19 22 Protein (U) [Mass/Vol] 175 mg/dL High 0-20 [facility] Comment on above: Order Comment: Speci men Type: URINE SPECIMENOrdering Facility: [facility] Address: [address] [place] [address] Performed By: #### U TPR, 05872-2, 26387-7, 32820-6 ####[facility]ATORYCLIA [id number] [place] [id number] [place] PT panel Coag (PPP)on 2021 INR Coag (PPP) [Relative time] 1.1 {INR} Normal <1.4 [facility] Comment on above: Order Comment: Speci men Type: BLOOD SPECIMENOrdering Facility: [facility] Address: [address] [place] [address] Result Comment: Yris min K Antagonist (VKA) Therapeutic Range: INR 2 to 3 (Target INR of 2.5)Note: For patients treated with VKA drugs, such as warfarin, the [employer] 2012 Guideline recommends [...] al. Chest 2012, 141:7S-47SNishimura RA, et al. [facility] 2017, 70: 252-289 Performed By: #### 3 4528-0, 08070-9 ####[facility]ATORYCLIA [id number] [address] [place] PT Coag (PPP) [Time] 11.4 s Normal <13.1 [facility] Comment on above: Order Comment: Speci men Type: BLOOD SPECIMENOrdering Facility: [facility] Address: [address] [place] [address] Performed By: #### 3 4528-0, 19082-6 ####[facility]ORATORYCLIA [id number] [place] [address] [place] Phosphate SerPl-mCncon 06-15 Phosphate [Mass/Vol] 2.6 mg/dL Low 2.7-4.8 [facility] Comment on above: Order Comment: Speci men Type: BLOOD SPECIMEN Performed By: #### 2 4321-2, 2777-1, 66207-0 ####[facility]ATORYCLIA [id number] [place] [address] [place] Sodium ?Tm Ur-sCncon 022 Sodium Unsp time (U) [Moles/Vol] 34 mmol/L Normal 14-216 [facility] Comment on above: Order Comment: Speci men Type: URINE SPECIMENOrdering Facility: [facility] Address: [address] [place] [address] Performed By: #### U TPR, 24118-7, 17875-5, 07219-2 ####[facility]ORATORYCLIA [id number] [place] [address] [place] Sodium SerPl-sCncon 06-15-19 22 Sodium [Moles/Vol] 159 mmol/L High 136-144 [facility] Comment on above: Order Comment: Speci men Type: BLOOD SPECIMENOrdering Facility: [facility] Address: [address] [place] [address] Performed By: #### P JULIANNE, 2951-2 ####[facility] LABORATORYCLIA [id number] [place] [address] [place] THERAPY NTon 06-15-2021 THERAPY NT Normal [facility] Urinalysis complete panel (U )on 06-15-2021 Bacteria LM.HPF (Urine sed) [#/Area] None Seen Normal None Seen [facility] Comment on above: Order Comment: Speci men Type: URINE SPECIMENOrdering Facility: [facility] Address: [address] [place] [address] Performed By: #### 2 4356-8 ####[facility] LABORATORYCLIA [id number] [address] STATES [place] [facility] Bilirubin Ql (U) Negative Normal Negative [facility] Comment on above: Order Comment: Speci men Type: URINE SPECIMENOrdering Facility: [facility] Address: [address] [place] [address] Performed By: #### 2 4356-8 ####[facility] LABORATORYCLIA [id number] [address] Clarity (Unsp spec) Cloudy Abnormal Clear [facility] Comment on above: Order Comment: Speci men Type: URINE SPECIMENOrdering Facility: [facility] Address: [address] [place] [address] Performed By: #### 2 4356-8 ####[facility]ORATORYCLIA [id number] [address] Color (U) Yellow Normal Yellow [facility] Comment on above: Order Comment: Speci men Type: URINE SPECIMENOrdering Facility: [facility] Address: [address] [place] [address] Performed By: #### 2 4356-8 ####[facility]ORATORYCLIA [id number] [address] Epithelial cells LM.HPF (Urine sed) [#/Area] 7.1 /[HPF] Normal [facility] Comment on above: Order Comment: Speci men Type: URINE SPECIMENOrdering Facility: [facility] Address: [address] [place] [address] Performed By: #### 2 4356-8 ####[facility]ATORYCLIA [id number] [address] [place] Glucose Test strip (U) [Mass/Vol] Negative Normal Negative [facility] Comment on above: Order Comment: Speci men Type: URINE SPECIMENOrdering Facility: [facility] Address: [address] [place] [address] Performed By: #### 2 4356-8 ####[facility]ATORYCLIA [id number] [address] Granular casts (Urine sed) [#/Area] /[LPF] Abnormal 0 /LPF [facility] Comment on above: Order Comment: Speci men Type: URINE SPECIMENOrdering Facility: [facility] Address: [address] [place] [address] Performed By: #### 2 4356-8 ####[facility] LABORATORYCLIA [id number] [address] Hemoglobin Ql (U) Moderate Abnormal Negative [facility] Comment on above: Order Comment: Speci men Type: URINE SPECIMENOrdering Facility: [facility] Address: [address] [place] [address] Performed By: #### 2 4356-8 ####[facility]ATORYCLIA [id number] [address] Hyaline casts (Urine sed) [#/Area] /[LPF] Abnormal 0 /LPF [facility] Comment on above: Order Comment: Speci men Type: URINE SPECIMENOrdering Facility: [facility] Address: [address] [place] [address] Performed By: #### 2 4356-8 ####[facility] LABORATORYCLIA [id number] [address] Ketones Ql (U) Negative Normal Negative [facility] Comment on above: Order Comment: Speci men Type: URINE SPECIMENOrdering Facility: [facility] Address: [address] [place] [address] Performed By: #### 2 4356-8 ####[facility]ORATORYCLIA [id number] [address] Leukocyte esterase Test strip Ql (U) Negative Normal Negative [facility] Comment on above: Order Comment: Speci men Type: URINE SPECIMENOrdering Facility: [facility] Address: [address] [place] [address] Performed By: #### 2 4356-8 ####[facility]ORATORYCLIA [id number] [address] STATES [facility] Nitrite Ql (U) Negative Normal Negative [facility] Comment on above: Order Comment: Speci men Type: URINE SPECIMENOrdering Facility: [facility] Address: [address] [place] [address] Performed By: #### 2 4356-8 ####[facility]ATORYCLIA [id number] [address] [place] pH (U) 6.0 [pH] Normal 5.0-8.0 [facility] Comment on above: Order Comment: Speci men Type: URINE SPECIMENOrdering Facility: [facility] Address: [address] [place] [address] Performed By: #### 2 4356-8 ####[facility]ORATORYCLIA [id number] [address] STATES [facility] Protein (U) [Mass/Vol] 100 mg/dL Abnormal Negative [facility] Comment on above: Order Comment: Speci men Type: URINE SPECIMENOrdering Facility: [facility] Address: [address] [place] [address] Performed By: #### 2 4356-8 ####[facility]ATORYCLIA [id number] [address] [place] RBC LM.HPF (Urine sed) [#/Area] 0-3 /HPF Normal 0-3 /HPF [facility] Comment on above: Order Comment: Speci men Type: URINE SPECIMENOrdering Facility: [facility] Address: [address] [place] [address] Performed By: #### 2 4356-8 ####[facility]ORATORYCLIA [id number] [address] Specific gravity (U) [Rel density] 1.024 Normal 1.005-1.030 [facility] Comment on above: Order Comment: Speci men Type: URINE SPECIMENOrdering Facility: [facility] Address: [address] [place] [address] Performed By: #### 2 4356-8 ####[facility]ORATORYCLIA [id number] [address] OF [facility] Urobilinogen Ql (U) 0.2 EU/dL Normal 0.2-1.0 EU/dL [facility] Comment on above: Order Comment: Speci men Type: URINE SPECIMENOrdering Facility: [facility] Address: [address] [place] [address] Performed By: #### 2 4356-8 ####[facility] H[facility]PITALIA [id number] [address] WBC LM.HPF (Urine sed) [#/Area] 0-5 /HPF Normal 0-5 /HPF [facility] Comment on above: Order Comment: Speci men Type: URINE SPECIMENOrdering Facility: [facility] Address: [address] [place] [address] Performed By: #### 2 4356-8 ####[facility] LABORATORYCLIA [id number] [address] [place] XR CHEST 1V FRONTALon 2021 XR CHEST 1V FRONTAL Normal [facility] XR CHEST 1V FRONTAL PORTon 0 06-15-2021 XR CHEST 1V FRONTAL PORT Normal [facility] XR CHEST 1V FRONTAL PORT Normal [facility] aPTT PPPon 06-15-2021 aPTT Coag (PPP) [Time] 30.9 s Normal 23.0-32.4 [facility] Comment on above: Order Comment: Speci men Type: BLOOD SPECIMENOrdering Facility: [facility] Address: [address] [place] [address] Performed By: #### 3 4528-0, 23808-2 ####[facility]ORATORYCLIA [id number] [place] [address] [place] Basic metabolic 2000 panelon 06-14-2021 Anion gap [Moles/Vol] 8 mmol/L Low 9-18 [facility] Comment on above: Order Comment: Speci men Type: BLOOD SPECIMEN Performed By: #### 2 4321-2, 2776-, ####[facility]ORATORYCLIA [id number] [place], [place] [id number] [place] [address] [place] [facility] Calcium [Mass/Vol] 8.9 mg/dL Normal 8.5-10.2 [facility] Comment on above: Order Comment: Speci men Type: BLOOD SPECIMEN Performed By: #### 2 4321-2, 2776-05, ####[facility]ORATORYCLIA [id number] [place], [place] [id number] [place] [address] [place] Chloride [Moles/Vol] 121 mmol/L High 97-105 [facility] Comment on above: Order Comment: Speci men Type: BLOOD SPECIMEN Performed By: #### 2 4321-2, 2776-05, ####[facility]ATORYCLIA [id number] [address] [place] [facility] CO2 [Moles/Vol] 30 mmol/L Normal 22-30 [facility] Comment on above: Order Comment: Speci men Type: BLOOD SPECIMEN Performed By: #### 2 4321-2, 2776-05, ####[facility]ORATORYCLIA [id number] [place] [address] [place] Creatinine [Mass/Vol] 0.78 mg/dL Normal 0.73-1.22 [facility] Comment on above: Order Comment: Speci men Type: BLOOD SPECIMEN Performed By: #### 2 4321-2, 2776-, ####[facility]ORATORYCLIA [id number] [place] [address] [place] GFR/1.73 sq M.predicted [...] GFR. Performed By: #### 2 4321-2, 2777-, ####[facility]ORATORYCLIA [id number] [place] [address] [place] Glucose [Mass/Vol] 132 mg/dL High 74-99 [facility] Comment on above: Order Comment: Speci men Type: BLOOD SPECIMEN Result Comment: The [place] [employer] (ADA) provides guidance for cutoff [...] Standards of Medical Care in Diabetes 2016, [employer]. Diabetes Care. 2016.39(Suppl 1). Performed By: #### 2 4321-2, 2777-, 34874-7 ####[facility] LABORATORYCLIA [id number] [place] [id number] [place] Potassium [Moles/Vol] 3.7 mmol/L Normal 3.7-5.1 [facility] Comment on above: Order Comment: Speci men Type: BLOOD SPECIMEN Performed By: #### 2 4321-2, 2776-05, ####[facility]ORATORYCLIA [id number] [place], [place] [id number] [place] [address] Sodium [Moles/Vol] 159 mmol/L High 136-144 [facility] Comment on above: Order Comment: Speci men Type: BLOOD SPECIMEN Performed By: #### 2 4321-2, 2776-05, ####[facility]ATORYCLIA [id number] [place], [place] [address] [place] [address] Urea nitrogen [Mass/Vol] 35 mg/dL High 9-24 [facility] Comment on above: Order Comment: Speci men Type: BLOOD SPECIMEN Performed By: #### 2 4321-2, 2776-05, ####[facility]ORATORYCLIA [id number] [address] CASE MANAGEMon 06-14-2021 CASE MANAGEM Normal [facility] CBC panel Auto (Bld)on 06-14 Erythrocyte distribution width (RBC) [Ratio] 16.2 % High 11.5-15.0 [facility] Comment on above: Order Comment: Speci men Type: BLOOD SPECIMEN Performed By: #### 5 8410-2 ####[facility]ORATORYCLIA [id number] [address] Hematocrit (Bld) [Volume fraction] 35.2 % Low 39.0-51.0 [facility] Comment on above: Order Comment: Speci men Type: BLOOD SPECIMEN Performed By: #### 5 8410-2 ####[facility]ORATORYCLIA [id number] [address] [place] [facility] Hemoglobin (Bld) [Mass/Vol] 10.1 g/dL Low 13.0-17.0 [facility] Comment on above: Order Comment: Speci men Type: BLOOD SPECIMEN Performed By: #### 5 8410-2 ####[facility]ORATORYCLIA [id number] [address] STATES [facility] MCH (RBC) [Entitic mass] 27.2 pg Normal 26.0-34.0 [facility] Comment on above: Order Comment: Speci men Type: BLOOD SPECIMEN Performed By: #### 5 8410-2 ####[facility]ORATORYCLIA [id number] [address] MCHC (RBC) [Mass/Vol] 28.7 g/dL Low 30.5-36.0 [facility] Comment on above: Order Comment: Speci men Type: BLOOD SPECIMEN Performed By: #### 5 8410-2 ####[facility]ORATORYCLIA [id number] [address] MCV (RBC) [Entitic vol] 94.6 fL Normal 80.0-100.0 [facility] Comment on above: Order Comment: Speci men Type: BLOOD SPECIMEN Performed By: #### 5 8410-2 ####[facility]ORATORYCLIA [id number] [address] Nucleated RBC (Bld) [#/Vol] 10*3/uL Normal <0.01 [facility] Comment on above: Order Comment: Speci men Type: BLOOD SPECIMEN Performed By: #### 5 8410-2 ####[facility]ORATORYCLIA [id number] [address] Platelet mean volume (Bld) [Entitic vol] 11.0 fL Normal 9.0-12.7 [facility] Comment on above: Order Comment: Speci men Type: BLOOD SPECIMEN Performed By: #### 5 8410-2 ####[facility]ORATORYCLIA [id number] [address] Platelets (Bld) [#/Vol] 287 10*3/uL Normal 150-400 [facility] Comment on above: Order Comment: Speci men Type: BLOOD SPECIMEN Performed By: #### 5 8410-2 ####[facility]ATORYCLIA [id number] [address] RBC (Bld) [#/Vol] 3.72 10*6/uL Low 4.20-6.00 [facility] Comment on above: Order Comment: Speci men Type: BLOOD SPECIMEN Performed By: #### 5 8410-2 ####[facility]ORATORYCLIA [id number] [place], [place] [id number] [place] [address] WBC (Bld) [#/Vol] 12.23 10*3/uL High 3.70-11.00 [facility] Comment on above: Order Comment: Speci men Type: BLOOD SPECIMEN Performed By: #### 5 8410-2 ####[facility]ORATORYCLIA [id number] [address] Comprehensive metabolic 2000 panelon 06-14-2021 Albumin [Mass/Vol] 3.1 g/dL Low 3.9-4.9 [facility] Comment on above: Order Comment: Speci men Type: BLOOD SPECIMEN Performed By: #### 2 4323-8, HSTNT, 2776-05, ####[facility]ORATORYCLIA [id number] [place], [place] [address] [place] [address] ALP [Catalytic activity/Vol] 72 U/L Normal 38-113 [facility] Comment on above: Order Comment: Speci men Type: BLOOD SPECIMEN Performed By: #### 2 4323-8, HSTNT, 2776-, ####[facility]ORATORYCLIA [id number] [place], [place] [address] [place] [address] ALT With P-5'-P [Catalytic activity/Vol] 57 U/L High 10-54 [facility] Comment on above: Order Comment: Speci men Type: BLOOD SPECIMEN Performed By: #### 2 4323-8, HSTNT, 2776-05, ####[facility] LABORATORYCLIA [id number] [place], [place] [address] [place] [address] Anion gap [Moles/Vol] 9 mmol/L Normal 9-18 [facility] Comment on above: Order Comment: Speci men Type: BLOOD SPECIMEN Performed By: #### 2 4323-8, HSTNT, 2776-05, ####[facility]ORATORYCLIA [id number] [address] AST With P-5'-P [Catalytic activity/Vol] 33 U/L Normal 14-40 [facility] Comment on above: Order Comment: Speci men Type: BLOOD SPECIMEN Performed By: #### 2 4323-8, HSTNT, 2776-05, ####[facility]ORATORYCLIA [id number] [address] [place] [facility] Bilirubin [Mass/Vol] 0.5 mg/dL Normal 0.2-1.3 [facility] Comment on above: Order Comment: Speci men Type: BLOOD SPECIMEN Performed By: #### 2 4323-8, HSTNT, 2776-05, ####[facility]ORATORYCLIA [id number] [address] STATES [facility] Calcium [Mass/Vol] 8.8 mg/dL Normal 8.5-10.2 [facility] Comment on above: Order Comment: Speci men Type: BLOOD SPECIMEN Performed By: #### 2 4323-8, HSTNT, 2776-05, ####[facility]ORATORYCLIA [id number] [address] [place] [facility] Chloride [Moles/Vol] 124 mmol/L High 97-105 [facility] Comment on above: Order Comment: Speci men Type: BLOOD SPECIMEN Performed By: #### 2 4323-8, HSTNT, 2776-05, ####[facility]ORATORYCLIA [id number] [address] [place] [facility] CO2 [Moles/Vol] 29 mmol/L Normal 22-30 [facility] Comment on above: Order Comment: Speci men Type: BLOOD SPECIMEN Performed By: #### 2 4323-8, HSTNT, 2776-05, ####[facility] LABORATORYCLIA [id number] [place] [address] [place] Creatinine [Mass/Vol] 0.73 mg/dL Normal 0.73-1.22 [facility] Comment on above: Order Comment: Speci men Type: BLOOD SPECIMEN Performed By: #### 2 4323-8, HSTNT, 2776-05, ####[facility] LABORATORYCLIA [id number] [place] [id number] [place] GFR/1.73 sq M.predicted [...] Performed By: #### 2 4323-8, HSTNT, 2776-05, ####[facility] LABORATORYCLIA [id number] [place] [id number] [place] Glucose [Mass/Vol] 137 mg/dL High 74-99 [facility] Comment on above: Order Comment: Speci [facility] Type: BLOOD SPECIMEN Result Comment: The [employer] (ADA) provides guidance for cutoff [...] Standards of Medical Care in Diabetes 2016, [place] [employer]. Diabetes Care. 2016.39(Suppl 1). Performed By: #### 2 4323-8, HSTNT, 2776-05, ####[facility]ORATORYCLIA [id number] [address] [place] [facility] Potassium [Moles/Vol] 3.6 mmol/L Low 3.7-5.1 [facility] Comment on above: Order Comment: Speci men Type: BLOOD SPECIMEN Performed By: #### 2 4323-8, HSTNT, 2776-05, ####[facility]ORATORYCLIA [id number] [address] [place] [facility] Protein [Mass/Vol] 5.9 g/dL Low 6.3-8.0 [facility] Comment on above: Order Comment: Speci men Type: BLOOD SPECIMEN Performed By: #### 2 4323-8, HSTNT, 2776-05, ####[facility]ORATORYCLIA [id number] [address] Sodium [Moles/Vol] 162 mmol/L High 136-144 [facility] Comment on above: Order Comment: Speci men Type: BLOOD SPECIMEN Performed By: #### 2 4323-8, HSTNT, 2776-05, ####[facility]ORATORYCLIA [id number] [address] STATES [facility] Urea nitrogen [Mass/Vol] 33 mg/dL High 9-24 [facility] Comment on above: Order Comment: Speci men Type: BLOOD SPECIMEN Performed By: #### 2 4323-8, HSTNT, 2776-05, ####[facility]ORATORYCLIA [id number] [address] [place] HIGH SENSITIVITY TROPONIN To n 06-14-2021 HIGH SENSITIVITY TAMIKO 22 ng/L High <12 [facility] Comment on above: [...] day MACE. Performed By: #### H STNT ####[facility] LABORATORYCLIA [id number] [address] HIGH SENSITIVITY TAMIKO 22 ng/L High <12 [facility] Comment on above: [...] Performed By: #### 2 4323-8, HSTNT, 2776-05, ####[facility]ORATORYCLIA [id number] [address] Magnesium SerPl-mCncon 06-14 Magnesium [Mass/Vol] 2.9 mg/dL High 1.7-2.3 [facility] Comment on above: Order Comment: Speci men Type: BLOOD SPECIMEN Performed By: #### 2 4323-8, HSTNT, 2776-05, ####[facility]ORATORYCLIA [id number] [address] STATES [facility] Magnesium [Mass/Vol] 3.0 mg/dL High 1.7-2.3 [facility] Comment on above: Order Comment: Speci men Type: BLOOD SPECIMEN Performed By: #### 2 4321-2, 2776-05, ####[facility]ORATORYCLIA [id number] [address] NURSING PROGon 06-14-2021 NURSING PROG Normal [facility] NUTRITIONon 06-14-2021 NUTRITION Normal [facility] Phosphate SerPl-mCncon 06-14 Phosphate [Mass/Vol] 2.4 mg/dL Low 2.7-4.8 [facility] Comment on above: Order Comment: Speci men Type: BLOOD SPECIMEN Performed By: #### 2 4323-8, HSTNT, 2776-05, ####[facility]ORATORYCLIA [id number] [place] [address] [place] [facility] Phosphate [Mass/Vol] 3.2 mg/dL Normal 2.7-4.8 [facility] Comment on above: Order Comment: Speci men Type: BLOOD SPECIMEN Performed By: #### 2 4321-2, 2776-05, ####[facility]ORATORYCLIA [id number] [place], [place] [id number] [place] [address] [place] THERAPY NTon 06-14-2021 THERAPY [...] Performed By: #### 2 4321-2, , 2776-05 ####[facility]ORATORYCLIA [id number] [place] [address] [place] Calcium [Mass/Vol] 8.8 mg/dL Normal 8.5-10.2 [facility] Comment on above: Order Comment: Speci men Type: BLOOD SPECIMEN Performed By: #### 2 4321-2, , 2776-05 ####[facility] LABORATORYCLIA [id number] [place] [address] [place] Chloride [Moles/Vol] 120 mmol/L High 97-105 [facility] Comment on above: Order Comment: Speci men Type: BLOOD SPECIMEN Performed By: #### 2 4321-2, , 2776-05 ####[facility]ORATORYCLIA [id number] [address] [place] CO2 [Moles/Vol] 28 mmol/L Normal 22-30 [facility] Comment on above: Order Comment: Speci men Type: BLOOD SPECIMEN Performed By: #### 2 1-2, , 2776-05 ####[facility]ORATORYCLIA [id number] [address] [place] [facility] Creatinine [Mass/Vol] 0.78 mg/dL Normal 0.73-1.22 [facility] Comment on above: Order Comment: Speci men Type: BLOOD SPECIMEN Performed By: #### 2 1-2, , 2776-05 ####[facility]ORATORYCLIA [id number] [address] [place] GFR/1.73 sq M.predicted [...] Performed By: #### 2 4321-2, , 2776-05 ####[facility]ORATORYCLIA [id number] [address] [place] Glucose [Mass/Vol] 126 mg/dL High 74-99 [facility] Comment on above: Order Comment: Speci men Type: BLOOD SPECIMEN Result Comment: The [place] Diabetes Association (ADA) provides guidance for cutoff [...] Standards of Medical Care in Diabetes 2016, [place] [employer]. Diabetes Care. 2016.39(Suppl 1). Performed By: #### 2 1-2, , 2776-05 ####[facility]ORATORYCLIA [id number] [place] [address] [place] Potassium [Moles/Vol] 3.6 mmol/L Low 3.7-5.1 [facility] Comment on above: Order Comment: Speci men Type: BLOOD SPECIMEN Performed By: #### 2 4320-2, , 2776-05 ####[facility]ORATORYCLIA [id number] [place] [address] [place] Sodium [Moles/Vol] 155 mmol/L High 136-144 [facility] Comment on above: Order Comment: Speci men Type: BLOOD SPECIMEN Performed By: #### 2 1-2, , 2776-05 ####[facility]ATORYCLIA [id number] [place] [address] [place] Urea nitrogen [Mass/Vol] 36 mg/dL High 9-24 [facility] Comment on above: Order Comment: Speci men Type: BLOOD SPECIMEN Performed By: #### 2 1-2, , 2776-05 ####[facility]ORATORYCLIA [id number] [place] [address] [place] Anion gap [Moles/Vol] 6 mmol/L Low 9-18 [facility] Comment on above: Order Comment: Speci men Type: BLOOD SPECIMEN Performed By: #### 2 4321-2, 2776-05, ####[facility]ORYCLIA [id number] [address] [place] [facility] Calcium [Mass/Vol] 6.5 mg/dL Low 8.5-10.2 [facility] Comment on above: Order Comment: Speci men Type: BLOOD SPECIMEN Performed By: #### 2 4321-2, 2776-05, ####[facility]ORYCLIA [id number] [address] [place] [facility] Chloride [Moles/Vol] 124 mmol/L High 97-105 [facility] Comment on above: Order Comment: Speci men Type: BLOOD SPECIMEN Performed By: #### 2 4321-2, 2776-05, ####[facility]ATORYCLIA [id number] [address] [place] CO2 [Moles/Vol] 24 mmol/L Normal 22-30 [facility] Comment on above: Order Comment: Speci men Type: BLOOD SPECIMEN Performed By: #### 2 4321-2, 2776-05, ####[facility]ORYCLIA [id number] [address] [place] Creatinine [Mass/Vol] 0.61 mg/dL Low 0.73-1.22 [facility] Comment on above: Order Comment: Speci men Type: BLOOD SPECIMEN Performed By: #### 2 4321-2, 2776-05, ####[facility]ATORYCLIA [id number] [place] [address] [place] GFR/1.73 sq M.predicted [...] GFR. Performed By: #### 2 4321-2, 2776-05, ####[facility]ITAL[facility] [id number] [place] [address] [place] Glucose [Mass/Vol] 100 mg/dL High 74-99 [facility] Comment on above: Order Comment: Speci men Type: BLOOD SPECIMEN Result Comment: The [place] [employer] (ADA) provides guidance for cutoff [...] Standards of Medical Care in Diabetes 2016, [place] [employer]. Diabetes Care. 2016.39(Suppl 1). Performed By: #### 2 4321-2, 2776-05, ####[facility]ORY[facility]IA [id number] [place] [address] [place] Potassium [Moles/Vol] 2.7 mmol/L Low 3.7-5.1 [facility] Comment on above: Order Comment: Speci men Type: BLOOD SPECIMEN Performed By: #### 2 4321-2, 27711-04, ####[facility]ORYCL[facility] [id number] [place] [address] [place] Sodium [Moles/Vol] 154 mmol/L High 136-144 [facility] Comment on above: Order Comment: Speci men Type: BLOOD SPECIMEN Performed By: #### 2 4321-2, 7-1, ####[facility]ORYCLIA [id number] [place], [place] [id number] [place] [address] Urea nitrogen [Mass/Vol] 29 mg/dL High 9-24 [facility] Comment on above: Order Comment: Speci men Type: BLOOD SPECIMEN Performed By: #### 2 4321-2, 2776-, ####[facility]ORYCLIA [id number] [address] CASE MANAGEMon 06-13-2021 CASE MANAGEM Normal [facility] CBC panel Auto (Bld)on 06-13 Erythrocyte distribution width (RBC) [Ratio] 15.9 % High 11.5-15.0 [facility] Comment on above: Order Comment: Speci men Type: BLOOD SPECIMEN Performed By: #### 5 8410-2 ####[facility]ORYCLIA [id number] [address] Hematocrit (Bld) [Volume fraction] 34.3 % Low 39.0-51.0 [facility] Comment on above: Order Comment: Speci men Type: BLOOD SPECIMEN Performed By: #### 5 8410-2 ####[facility]ORYCLIA [id number] [address] Hemoglobin (Bld) [Mass/Vol] 9.9 g/dL Low 13.0-17.0 [facility] Comment on above: Order Comment: Speci men Type: BLOOD SPECIMEN Performed By: #### 5 8410-2 ####[facility]ORYCLIA [id number] [address] MCH (RBC) [Entitic mass] 27.3 pg Normal 26.0-34.0 [facility] Comment on above: Order Comment: Speci men Type: BLOOD SPECIMEN Performed By: #### 5 8410-2 ####[facility]ORYCLIA [id number] [address] MCHC (RBC) [Mass/Vol] 28.9 g/dL Low 30.5-36.0 [facility] Comment on above: Order Comment: Speci men Type: BLOOD SPECIMEN Performed By: #### 5 8410-2 ####[facility]ORYCLIA [id number] [address] MCV (RBC) [Entitic vol] 94.5 fL Normal 80.0-100.0 [facility] Comment on above: Order Comment: Speci men Type: BLOOD SPECIMEN Performed By: #### 5 8410-2 ####[facility]ORYCLIA [id number] [address] Nucleated RBC (Bld) [#/Vol] 10*3/uL Normal <0.01 [facility] Comment on above: Order Comment: Speci men Type: BLOOD SPECIMEN Performed By: #### 5 8410-2 ####[facility]ORYCLIA [id number] [address] Platelet mean volume (Bld) [Entitic vol] 11.3 fL Normal 9.0-12.7 [facility] Comment on above: Order Comment: Speci men Type: BLOOD SPECIMEN Performed By: #### 5 8410-2 ####[facility]ORYCLIA [id number] [address] Platelets (Bld) [#/Vol] 269 10*3/uL Normal 150-400 [facility] Comment on above: Order Comment: Speci men Type: BLOOD SPECIMEN Performed By: #### 5 8410-2 ####[facility]ORYCLIA [id number] [address] RBC (Bld) [#/Vol] 3.63 10*6/uL Low 4.20-6.00 [facility] Comment on above: Order Comment: Speci men Type: BLOOD SPECIMEN Performed By: #### 5 8410-2 ####[facility]ORYCLIA [id number] [address] WBC (Bld) [#/Vol] 12.77 10*3/uL High 3.70-11.00 [facility] Comment on above: Order Comment: Speci men Type: BLOOD SPECIMEN Performed By: #### 5 8410-2 ####[facility]ORYCLIA [id number] [address] Gas and Carbon monoxide pane l (BldV)on 06-13-2021 Base excess Calc (BldV) [Moles/Vol] 5.7 mmol/L High 0-2 [facility] Comment on above: Order Comment: Speci men Type: VENOUS BLOOD SPECIMEN Performed By: #### 2 4344-4 ####[facility]ORYCLIA [id number] [address] Body temperature 99.5 [degF] Normal [facility] Comment on above: Order Comment: Speci men Type: VENOUS BLOOD SPECIMEN Performed By: #### 2 4344-4 ####[facility]ORYCLIA [id number] [address] CALCIUM IONIZED, PH CORRECTED 1.24 mmol/L Normal 1.08-1.30 [facility] Comment on above: Order Comment: Speci men Type: VENOUS BLOOD SPECIMEN Performed By: #### 2 4344-4 ####[facility]ORYCLIA [id number] [address] Calcium.ionized (BldV) [Mass/Vol] 1.23 mmol/L Normal 1.08-1.30 [facility] Comment on above: Order Comment: Speci men Type: VENOUS BLOOD SPECIMEN Performed By: #### 2 4344-4 ####[facility]ORYCLIA [id number] [address] Carboxyhemoglobin (BldV) [Mass fraction] 1.2 % Normal 0.0-2.0 [facility] Comment on above: Order Comment: Speci men Type: VENOUS BLOOD SPECIMEN Result Comment: Carb oxyhemoglobin Reference Range for Smokers: 2.0-8.0% Performed By: #### 2 4344-4 ####[facility]ORYCLIA [id number] [address] [place] CO2 (BldV) [Partial pressure] 48 mm[Hg] Normal 42-55 [facility] Comment on above: Order Comment: Speci men Type: VENOUS BLOOD SPECIMEN Performed By: #### 2 4344-4 ####[facility]ORYCLIA [id number] [address] [place] CO2 [Moles/Vol] 28.2 mmol/L Normal 25-29 [facility] Comment on above: Order Comment: Speci men Type: VENOUS BLOOD SPECIMEN Performed By: #### 2 4344-4 ####[facility]CLIA [id number] [address] CO2 adjusted to patient's actual temperature (BldV) [Partial pressure] 49 mmHg Normal 42-55 [facility] Comment on above: Order Comment: Speci men Type: VENOUS BLOOD SPECIMEN Performed By: #### 2 4344-4 ####[facility]ORYCLIA [id number] [address] [place] Glucose [Mass/Vol] 131 mg/dL High 60-105 [facility] Comment on above: Order Comment: Speci men Type: VENOUS BLOOD SPECIMEN Performed By: #### 2 4344-4 ####[facility]ORYCLIA [id number] [address] [place] HCO3 (Bld) [Moles/Vol] 30.6 mmol/L High 24-28 [facility] Comment on above: Order Comment: Speci men Type: VENOUS BLOOD SPECIMEN Performed By: #### 2 4344-4 ####[facility]ORYCLIA [id number] [address] [place] Hematocrit (Bld) [Volume fraction] 32.8 % Low 39.0-51.0 [facility] Comment on above: Order Comment: Speci men Type: VENOUS BLOOD SPECIMEN Performed By: #### 2 4344-4 ####[facility]ORYCLIA [id number] [address] Hemoglobin (Bld) [Mass/Vol] 10.6 g/dL Low 13.0-17.0 [facility] Comment on above: Order Comment: Speci men Type: VENOUS BLOOD SPECIMEN Performed By: #### 2 4344-4 ####[facility]ORYCLIA [id number] [address] LITERS 6 Liters/min Normal [facility] Comment on above: Order Comment: Speci men Type: VENOUS BLOOD SPECIMEN Performed By: #### 2 4344-4 ####[facility]ORYCLIA [id number] [address] Methemoglobin (Bld) [Mass fraction] 1.0 % Normal 0.0-1.5 [facility] Comment on above: Order Comment: Speci men Type: VENOUS BLOOD SPECIMEN Performed By: #### 2 4344-4 ####[facility]ORYCLIA [id number] [address] O2 THERAPY NC = Nasal Cannula Normal [facility] Comment on above: Order Comment: Speci men Type: VENOUS BLOOD SPECIMEN Performed By: #### 2 4344-4 ####[facility]ORYCLIA [id number] [address] Oxygen (BldV) [Partial pressure] 42 mm[Hg] Normal 35-45 [facility] Comment on above: Order Comment: Speci men Type: VENOUS BLOOD SPECIMEN Performed By: #### 2 4344-4 ####[facility]ORYCLIA [id number] [address] Oxygen adjusted to patient's actual temperature (BldV) [Partial pressure] 43.8 mmHg Normal 35-45 [facility] Comment on above: Order Comment: Speci men Type: VENOUS BLOOD SPECIMEN Performed By: #### 2 4344-4 ####[facility]ORYCLIA [id number] [address] Oxygen saturation in Blood 76.7 % Normal 60-85 [facility] Comment on above: Order Comment: Speci men Type: VENOUS BLOOD SPECIMEN Performed By: #### 2 4344-4 ####[facility]ORATORYCLIA [id number] [address] Oxyhemoglobin (BldV) [Mass fraction] 75 % Normal 60-85 [facility] Comment on above: Order Comment: Speci men Type: VENOUS BLOOD SPECIMEN Performed By: #### 2 4344-4 ####[facility] LABORATORYCLIA [id number] [address] pH (BldV) 7.42 [pH] Normal 7.32-7.42 [facility] Comment on above: Order Comment: Speci men Type: VENOUS BLOOD SPECIMEN Performed By: #### 2 4344-4 ####[facility]CLIA [id number] [address] pH adjusted to patient's actual temperature (BldV) 7.41 Normal 7.32-7.42 [facility] Comment on above: Order Comment: Speci men Type: VENOUS BLOOD SPECIMEN Performed By: #### 2 4344-4 ####[facility] LABORATORYCLIA [id number] [address] OF [facility] Potassium [Moles/Vol] 3.5 mmol/L Normal 3.5-5.0 [facility] Comment on above: Order Comment: Speci men Type: VENOUS BLOOD SPECIMEN Performed By: #### 2 4344-4 ####[facility]ORYCLIA [id number] [address] STATES [facility] Sodium [Moles/Vol] 157 mmol/L High 136-144 [facility] Comment on above: Order Comment: Speci men Type: VENOUS BLOOD SPECIMEN Performed By: #### 2 4344-4 ####[facility] LABORATORYCLIA [id number] [place] [address] [place] Magnesium SerPl-mCncon 06-13 Magnesium [Mass/Vol] 3.0 mg/dL High 1.7-2.3 [facility] Comment on above: Order Comment: Speci men Type: BLOOD SPECIMEN Performed By: #### 2 4321-2, , 2776-05 ####[facility]ORYCLIA [id number] [address] [place] Magnesium [Mass/Vol] 2.2 mg/dL Normal 1.7-2.3 [facility] Comment on above: Order Comment: Speci men Type: BLOOD SPECIMEN Performed By: #### 2 4321-2, 2776-05, ####[facility]ORYCLIA [id number] [address] [place] Phosphate SerPl-ncon 06-13 Phosphate [Mass/Vol] 2.2 mg/dL Low 2.7-4.8 [facility] Comment on above: Order Comment: Speci men Type: BLOOD SPECIMEN Performed By: #### 2 4321-2, , 2776-05 ####[facility]ORYCLIA [id number] [address] [place] Phosphate [Mass/Vol] 1.8 mg/dL Low 2.7-4.8 [facility] Comment on above: Order Comment: Speci men Type: BLOOD SPECIMEN Performed By: #### 2 4321-2, 2776-05, ####[facility]ORYCLIA [id number] [place] [address] [place] XR CHEST 1V [...] By: #### 6 11-4 ####[facility]ORYCLIA [id number] [address] [facility] Basic metabolic 2000 panelon 06-12-2021 Anion gap [Moles/Vol] 6 mmol/L Low 9-18 [facility] Comment on above: Order Comment: Speci men Type: BLOOD SPECIMEN Performed By: #### 2 777-1, , ####[facility]ORYCLIA [id number] [address] [place] Calcium [Mass/Vol] 8.7 mg/dL Normal 8.5-10.2 [facility] Comment on above: Order Comment: Speci men Type: BLOOD SPECIMEN Performed By: #### 2 777-1, , ####[facility]ORYCLIA [id number] [address] [place] [facility] Chloride [Moles/Vol] 118 mmol/L High 97-105 [facility] Comment on above: Order Comment: Speci men Type: BLOOD SPECIMEN Performed By: #### 2 777-1, , ####[facility]ORYCLIA [id number] [address] [place] CO2 [Moles/Vol] 28 mmol/L Normal 22-30 [facility] Comment on above: Order Comment: Speci men Type: BLOOD SPECIMEN Performed By: #### 2 777-1, 54796-1, ####[facility]ORYCLIA [id number] [address] [place] Creatinine [Mass/Vol] 0.77 mg/dL Normal 0.73-1.22 [facility] Comment on above: Order Comment: Speci men Type: BLOOD SPECIMEN Performed By: #### 2 777-1, 90175-2, ####[facility]ORYCLIA [id number] [place] [address] [place] GFR/1.73 sq M.predicted [...] actual GFR. Performed By: #### 2 777-1, 89247-7, 64961-8 ####[facility]ORYCLIA [id number] [place] [address] [place] Glucose [Mass/Vol] 116 mg/dL High 74-99 [facility] Comment on above: Order Comment: Speci men Type: BLOOD SPECIMEN Result Comment: The [place] [employer] (ADA) provides guidance for cutoff [...] Standards of Medical Care in Diabetes 2016, [place] [employer]. Diabetes Care. 2016.39(Suppl 1). Performed By: #### 2 777-1, 48159-1, 88222-5 ####[facility]ORYCLIA [id number] [place] [address] [place] Potassium [Moles/Vol] 4.0 mmol/L Normal 3.7-5.1 [facility] Comment on above: Order Comment: Speci men Type: BLOOD SPECIMEN Performed By: #### 2 777-1, 78017-5, ####[facility] LABORATORYCLIA [id number] [address] Sodium [Moles/Vol] 152 mmol/L High 136-144 [facility] Comment on above: Order Comment: Speci men Type: BLOOD SPECIMEN Performed By: #### 2 777-1, 85634-2, ####[facility]ORYCLIA [id number] [address] Urea nitrogen [Mass/Vol] 34 mg/dL High 9-24 [facility] Comment on above: Order Comment: Speci men Type: BLOOD SPECIMEN Performed By: #### 2 777-1, 14087-4, ####[facility]ATORYCLIA [id number] [address] CBC panel Auto (Bld)on 06-12 Erythrocyte distribution width (RBC) [Ratio] 16.1 % High 11.5-15.0 [facility] Comment on above: Order Comment: Speci men Type: BLOOD SPECIMEN Performed By: #### 5 8410-2 ####[facility]ORYCLIA [id number] [address] Hematocrit (Bld) [Volume fraction] 32.8 % Low 39.0-51.0 [facility] Comment on above: Order Comment: Speci men Type: BLOOD SPECIMEN Performed By: #### 5 8410-2 ####[facility]ORYCLIA [id number] [address] Hemoglobin (Bld) [Mass/Vol] 9.9 g/dL Low 13.0-17.0 [facility] Comment on above: Order Comment: Speci men Type: BLOOD SPECIMEN Performed By: #### 5 8410-2 ####[facility]ORYCLIA [id number] [address] MCH (RBC) [Entitic mass] 28.4 pg Normal 26.0-34.0 [facility] Comment on above: Order Comment: Speci men Type: BLOOD SPECIMEN Performed By: #### 5 8410-2 ####[facility]ORYCLIA [id number] [address] MCHC (RBC) [Mass/Vol] 30.2 g/dL Low 30.5-36.0 [facility] Comment on above: Order Comment: Speci men Type: BLOOD SPECIMEN Performed By: #### 5 8410-2 ####[facility]ORYCLIA [id number] [address] MCV (RBC) [Entitic vol] 94.3 fL Normal 80.0-100.0 [facility] Comment on above: Order Comment: Speci men Type: BLOOD SPECIMEN Performed By: #### 5 8410-2 ####[facility]ORYCLIA [id number] [address] Nucleated RBC (Bld) [#/Vol] 10*3/uL Normal <0.01 [facility] Comment on above: Order Comment: Speci men Type: BLOOD SPECIMEN Performed By: #### 5 8410-2 ####[facility]ORYCLIA [id number] [address] Platelet mean volume (Bld) [Entitic vol] 11.2 fL Normal 9.0-12.7 [facility] Comment on above: Order Comment: Speci men Type: BLOOD SPECIMEN Performed By: #### 5 8410-2 ####[facility]ORYCLIA [id number] [address] Platelets (Bld) [#/Vol] 218 10*3/uL Normal 150-400 [facility] Comment on above: Order Comment: Speci men Type: BLOOD SPECIMEN Performed By: #### 5 8410-2 ####[facility]ORYCLIA [id number] [address] [facility] RBC (Bld) [#/Vol] 3.48 10*6/uL Low 4.20-6.00 [facility] Comment on above: Order Comment: Speci men Type: BLOOD SPECIMEN Performed By: #### 5 8410-2 ####[facility]ORYCLIA [id number] [address] WBC (Bld) [#/Vol] 13.33 10*3/uL High 3.70-11.00 [facility] Comment on above: Order Comment: Speci men Type: BLOOD SPECIMEN Performed By: #### 5 8410-2 ####[facility]ORYCLIA [id number] [address] CONSULT PROGon 06-12-2021 CONSULT PROG Normal [facility] CT DRN PLACE PERIT/RETROP [place] BIon 06-12-[address] PERIT/RETROP FL BI Normal [facility] HISTORY PHYSICALon HISTORY PHYSICAL Normal [facility] Magnesium SerPl-mCncon 06-12 Magnesium [Mass/Vol] 2.7 mg/dL High 1.7-2.3 [facility] Comment on above: Order Comment: Speci men Type: BLOOD SPECIMEN Performed By: #### 2 777-1, 03117-6, 58538-8 ####[facility]ORYCLIA [id number] [address] PT panel Coag (PPP)on 2021 INR Coag (PPP) [Relative time] 1.1 {INR} Normal 0.9-1.3 [facility] Comment on above: Order Comment: Speci men Type: BLOOD SPECIMEN Result Comment: Yris min K Antagonist (VKA) Therapeutic Range: INR 2 to 3 (Target INR of 2.5)Note: For patients treated with VKA drugs, such as warfarin, the [place] [employer] 2012 Guideline recommends [...] al. Chest 2012, 141:7S-47SNishimura RA, et al. [facility] 2017, 70: 252-289 Performed By: #### 3 4528-0 ####[facility]ORYCLIA [id number] [address] PT Coag (PPP) [Time] 11.9 s Normal 9.7-13.0 [facility] Comment on above: Order Comment: Speci men Type: BLOOD SPECIMEN Performed By: #### 3 4528-0 ####[facility]ORYCLIA [id number] [address] [place] Phosphate SerPl-mCncon 06-12 Phosphate [Mass/Vol] 2.2 mg/dL Low 2.7-4.8 [facility] Comment on above: Order Comment: Speci men Type: BLOOD SPECIMEN Performed By: #### 2 777-1, 72697-2, 46474-8 ####[facility]ORYCLIA [id number] [address] [place] XR ABDOMEN 1V SUPINEon 06-12 XR ABDOMEN 1V SUPINE Normal [facility] ALLIED HEALTHon 06-11-2021 ALLIED HEALTH Normal [facility] Bacteria Bld Culton 06-11-19 Bacteria identified Cx Nom (Bld) CULTURE, BLOOD: No growth 5 days Normal [facility] Comment on above: Performed By: #### 6 00-7 ####[facility]ORYCLIA [id number] [address] [place] [facility] Bacteria identified Cx Nom (Bld) CULTURE, BLOOD: No growth 5 days Normal [facility] Comment on above: Performed By: #### 6 00-7 ####[facility]ORYCLIA [id number] [address] Bacteria Ur Culton 2 Bacteria identified Cx Nom (U) CULTURE, URINE: No growth (<1,000 CFU/ml) Normal [facility] Comment on above: Performed By: #### 6 30-4 ####[facility]ORYCLIA [id number] [address] Basic metabolic 2000 panelon 06-11-2021 Anion gap [Moles/Vol] 9 mmol/L Normal 9-18 [facility] Comment on above: Order Comment: Speci men Type: BLOOD SPECIMEN Performed By: #### 1 9123-9, 2777-, 23725-4 ####[facility]ORYCLIA [id number] [address] [facility] Calcium [Mass/Vol] 8.5 mg/dL Normal 8.5-10.2 [facility] Comment on above: Order Comment: Speci men Type: BLOOD SPECIMEN Performed By: #### 1 9123-9, 2776-05, 31392-6 ####[facility]ORYCLIA [id number] [address] Chloride [Moles/Vol] 118 mmol/L High 97-105 [facility] Comment on above: Order Comment: Speci men Type: BLOOD SPECIMEN Performed By: #### 1 9123-9, 27711-04, 02517-4 ####[facility]ORYCLIA [id number] [address] [place] CO2 [Moles/Vol] 27 mmol/L Normal 22-30 [facility] Comment on above: Order Comment: Speci men Type: BLOOD SPECIMEN Performed By: #### 1 9123-9, 2777, 45440-6 ####[facility]ORYCLIA [id number] [address] [place] Creatinine [Mass/Vol] 0.75 mg/dL Normal 0.73-1.22 [facility] Comment on above: Order [facility] Performed By: #### 1 9123-9, 2777-1, 38818-0 ####[facility]ORYCLIA [id number] [place] [address] [place] GFR/1.73 sq M.predicted [...] GFR. Performed By: #### 1 9123-9, 2777-1, 35823-3 ####[facility]ORYCLIA [id number] [place] [address] [place] Glucose [Mass/Vol] 142 mg/dL High 74-99 [facility] Comment on above: Order Comment: [facility] Type: BLOOD SPECIMEN Result Comment: The [place] [employer] (ADA) provides guidance for cutoff [...] Standards of Medical Care in Diabetes 2016, [place] [employer]. Diabetes Care. 2016.39(Suppl 1). Performed By: #### 1 9123-9, 2777, 52052-5 ####[facility]ORYCLIA [id number] [address] Potassium [Moles/Vol] 3.6 mmol/L Low 3.7-5.1 [facility] Comment on above: Order Comment: Speci men Type: BLOOD SPECIMEN Performed By: #### 1 9123-9, 27711-04, 89846-5 ####[facility]ORYCLIA [id number] [address] Sodium [Moles/Vol] 154 mmol/L High 136-144 [facility] Comment on above: Order Comment: Speci men Type: BLOOD SPECIMEN Performed By: #### 1 9123-9, 27711-04, 07056-0 ####[facility]ORYCLIA [id number] [address] Urea nitrogen [Mass/Vol] 31 mg/dL High 9-24 [facility] Comment on above: Order Comment: Speci men Type: BLOOD SPECIMEN Performed By: #### 1 9123-9, 27711-04, ####[facility]ORYCLIA [id number] [address] C diff Tox gens Stl Ql MEGAN+p robeon 06-11-2021 C. difficile toxin genes MEGAN+probe Ql (Stl) Negative Normal Negative for C. difficile toxin by PCR [facility] Comment on above: Order Comment: Speci men Type: STOOL SPECIMEN Performed By: #### 5 4067-4 ####[facility]ORYCLIA [id number] [address] CBC W Auto Differential pane l (Bld)on 06-11-2021 Basophils (Bld) [#/Vol] 0.03 10*3/uL Normal <0.11 [facility] Comment on above: Order Comment: Speci men Type: BLOOD SPECIMEN Performed By: #### 5 7021-8 ####[facility]ORYCLIA [id number] [address] Basophils/100 WBC (Bld) 0.2 % Normal [facility] Comment on above: Order Comment: Speci men Type: BLOOD SPECIMEN Performed By: #### 5 7021-8 ####[facility]ORYCLIA [id number] [address] [place] Differential cell count method Nom (Bld) Auto Normal [facility] Comment on above: Order Comment: Speci men Type: BLOOD SPECIMEN Performed By: #### 5 7021-8 ####[facility]ORYCLIA [id number] [address] Eosinophils (Bld) [#/Vol] 0.19 10*3/uL Normal <0.46 [facility] Comment on above: Order Comment: Speci men Type: BLOOD SPECIMEN Performed By: #### 5 7021-8 ####[facility]ORYCLIA [id number] [address] Eosinophils/100 WBC (Bld) 1.5 % Normal [facility] Comment on above: Order Comment: Speci men Type: BLOOD SPECIMEN Performed By: #### 5 7021-8 ####[facility] LABORATORYCLIA [id number] [address] Erythrocyte distribution width (RBC) [Ratio] 16.3 % High 11.5-15.0 [facility] Comment on above: Order Comment: Speci men Type: BLOOD SPECIMEN Performed By: #### 5 7021-8 ####[facility]ORYCLIA [id number] [address] Hematocrit (Bld) [Volume fraction] 32.1 % Low 39.0-51.0 [facility] Comment on above: Order Comment: Speci men Type: BLOOD SPECIMEN Performed By: #### 5 7021-8 ####[facility]ORATORYCLIA [id number] [address] Hemoglobin (Bld) [Mass/Vol] 9.3 g/dL Low 13.0-17.0 [facility] Comment on above: Order Comment: Speci men Type: BLOOD SPECIMEN Performed By: #### 5 7021-8 ####[facility] LABORATORYCLIA [id number] [address] IMMATURE GRAN % 0.6 % Normal [facility] Comment on above: Order Comment: Speci men Type: BLOOD SPECIMEN Performed By: #### 5 7021-8 ####[facility] LABORATORYCLIA [id number] [address] IMMATURE GRAN ABS 0.08 k/uL Normal <0.10 [facility] Comment on above: Order Comment: Speci men Type: BLOOD SPECIMEN Performed By: #### 5 7021-8 ####[facility] LABORATORYCLIA [id number] [address] Lymphocytes (Bld) [#/Vol] 1.65 10*3/uL Normal 1.00-4.00 [facility] Comment on above: Order Comment: Speci men Type: BLOOD SPECIMEN Performed By: #### 5 7021-8 ####[facility] LABORATORYCLIA [id number] [address] Lymphocytes/100 WBC (Bld) 12.8 % Normal [facility] Comment on above: Order Comment: Speci men Type: BLOOD SPECIMEN Performed By: #### 5 7021-8 ####[facility] LABORATORYCLIA [id number] [address] MCH (RBC) [Entitic mass] 27.2 pg Normal 26.0-34.0 [facility] Comment on above: Order Comment: Speci men Type: BLOOD SPECIMEN Performed By: #### 5 7021-8 ####[facility] LABORATORYCLIA [id number] [address] MCHC (RBC) [Mass/Vol] 29.0 g/dL Low 30.5-36.0 [facility] Comment on above: Order Comment: Speci men Type: BLOOD SPECIMEN Performed By: #### 5 7021-8 ####[facility]ATORYCLIA [id number] [address] MCV (RBC) [Entitic vol] 93.9 fL Normal 80.0-100.0 [facility] Comment on above: Order Comment: Speci men Type: BLOOD SPECIMEN Performed By: #### 5 7021-8 ####[facility]ORATORYCLIA [id number] [address] Monocytes (Bld) [#/Vol] 0.68 10*3/uL Normal <0.87 [facility] Comment on above: Order Comment: Speci men Type: BLOOD SPECIMEN Performed By: #### 5 7021-8 ####[facility]ATORYCLIA [id number] [address] Monocytes/100 WBC (Bld) 5.3 % Normal [facility] Comment on above: Order Comment: Speci men Type: BLOOD SPECIMEN Performed By: #### 5 7021-8 ####[facility]ORATORYCLIA [id number] [address] Neutrophils (Bld) [#/Vol] 10.22 10*3/uL High 1.45-7.50 [facility] Comment on above: Order Comment: Speci men Type: BLOOD SPECIMEN Performed By: #### 5 7021-8 ####[facility]ORATORYCLIA [id number] [address] Neutrophils/100 WBC (Bld) 79.6 % Normal [facility] Comment on above: Order Comment: Speci men Type: BLOOD SPECIMEN Performed By: #### 5 7021-8 ####[facility]ORATORYCLIA [id number] [address] Nucleated RBC (Bld) [#/Vol] 10*3/uL Normal <0.01 [facility] Comment on above: Order Comment: Speci men Type: BLOOD SPECIMEN Performed By: #### 5 7021-8 ####[facility] LABORATORYCLIA [id number] [address] Nucleated RBC/100 WBC (Bld) [Ratio] 0.0 /100 WBC Normal 0.0 [facility] Comment on above: Order Comment: Speci men Type: BLOOD SPECIMEN Performed By: #### 5 7021-8 ####[facility]ORATORYCLIA [id number] [address] Platelet mean volume (Bld) [Entitic vol] 11.1 fL Normal 9.0-12.7 [facility] Comment on above: Order Comment: Speci men Type: BLOOD SPECIMEN Performed By: #### 5 7021-8 ####[facility]ORATORYCLIA [id number] [address] Platelets (Bld) [#/Vol] 188 10*3/uL Normal 150-400 [facility] Comment on above: Order Comment: Speci men Type: BLOOD SPECIMEN Performed By: #### 5 7021-8 ####[facility]ATORYCLIA [id number] [address] RBC (Bld) [#/Vol] 3.42 10*6/uL Low 4.20-6.00 [facility] Comment on above: Order Comment: Speci men Type: BLOOD SPECIMEN Performed By: #### 5 7021-8 ####[facility]ORATORYCLIA [id number] [address] WBC (Bld) [#/Vol] 12.85 10*3/uL High 3.70-11.00 [facility] Comment on above: Order Comment: Speci men Type: BLOOD SPECIMEN Performed By: #### 5 7021-8 ####[facility]ORATORYCLIA [id number] [address] CBC panel Auto (Bld)on 06-11 Erythrocyte distribution width (RBC) [Ratio] 16.2 % High 11.5-15.0 [facility] Comment on above: Order Comment: Speci men Type: BLOOD SPECIMEN Performed By: #### 5 8410-2 ####[facility]ORATORYCLIA [id number] [address] Hematocrit (Bld) [Volume fraction] 34.5 % Low 39.0-51.0 [facility] Comment on above: Order Comment: Speci men Type: BLOOD SPECIMEN Performed By: #### 5 8410-2 ####[facility]ATORYCLIA [id number] [address] Hemoglobin (Bld) [Mass/Vol] 10.3 g/dL Low 13.0-17.0 [facility] Comment on above: Order Comment: Speci men Type: BLOOD SPECIMEN Performed By: #### 5 8410-2 ####[facility]ORATORYCLIA [id number] [address] MCH (RBC) [Entitic mass] 28.1 pg Normal 26.0-34.0 [facility] Comment on above: Order Comment: Speci men Type: BLOOD SPECIMEN Performed By: #### 5 8410-2 ####[facility]ORATORYCLIA [id number] [address] MCHC (RBC) [Mass/Vol] 29.9 g/dL Low 30.5-36.0 [facility] Comment on above: Order Comment: Speci men Type: BLOOD SPECIMEN Performed By: #### 5 8410-2 ####[facility]ORATORYCLIA [id number] [address] MCV (RBC) [Entitic vol] 94.3 fL Normal 80.0-100.0 [facility] Comment on above: Order Comment: Speci men Type: BLOOD SPECIMEN Performed By: #### 5 8410-2 ####[facility]ORATORYCLIA [id number] [address] Nucleated RBC (Bld) [#/Vol] 10*3/uL Normal <0.01 [facility] Comment on above: Order Comment: Speci men Type: BLOOD SPECIMEN Performed By: #### 5 8410-2 ####[facility]ATORYCLIA [id number] [address] Platelet mean volume (Bld) [Entitic vol] 10.9 fL Normal 9.0-12.7 [facility] Comment on above: Order Comment: Speci men Type: BLOOD SPECIMEN Performed By: #### 5 8410-2 ####[facility]ORATORYCLIA [id number] [address] Platelets (Bld) [#/Vol] 210 10*3/uL Normal 150-400 [facility] Comment on above: Order Comment: Speci men Type: BLOOD SPECIMEN Performed By: #### 5 8410-2 ####[facility]ORATORYCLIA [id number] [address] [facility] RBC (Bld) [#/Vol] 3.66 10*6/uL Low 4.20-6.00 [facility] Comment on above: Order Comment: Speci men Type: BLOOD SPECIMEN Performed By: #### 5 8410-2 ####[facility]ORATORYCLIA [id number] [address] WBC (Bld) [#/Vol] 13.03 10*3/uL High 3.70-11.00 [facility] Comment on above: Order Comment: Speci men Type: BLOOD SPECIMEN Performed By: #### 5 8410-2 ####[facility]ORATORYCLIA [id number] [address] [facility] CONSULT PROGon 06-11-2021 CONSULT PROG Normal [facility] CONSULT PROG Normal [facility] CONSULT PROG Normal [facility] CT ABD/PEL W IVCONon 022 CT ABD/PEL W IVCON Invalid Interpretation Code [facility] Magnesium SerPl-mCncon 06-11 Magnesium [Mass/Vol] 2.7 mg/dL High 1.7-2.3 [facility] Comment on above: Order Comment: Speci men Type: BLOOD SPECIMEN Performed By: #### 1 9123-9, 2777-1, 56845-7 ####[facility]ORATORYCLIA [id number] [place], [place] [id number] [place] [address] [place] Phosphate SerPl-mCncon 06-11 Phosphate [Mass/Vol] 2.5 mg/dL Low 2.7-4.8 [facility] Comment on above: Order Comment: Speci men Type: BLOOD SPECIMEN Performed By: #### 1 9123-9, 2777-1, 28876-7 ####[facility]ORATORYCLIA [id number] [place], [place] [address] [place] [address] Basic metabolic 2000 panelon 06-10-2021 Anion gap [Moles/Vol] 7 mmol/L Low 9-18 [facility] Comment on above: Order Comment: Speci men Type: BLOOD SPECIMEN Performed By: #### 2 777-1, 30852-3, , HFP ####[facility]ORATORYCLIA [id number] [place], [place] [address] [place] [address] [place] [facility] Calcium [Mass/Vol] 8.5 mg/dL Normal 8.5-10.2 [facility] Comment on above: Order Comment: Speci men Type: BLOOD SPECIMEN Performed By: #### 2 777-1, 82458-2, , HFP ####[facility]ORATORYCLIA [id number] [place], [place] [address] [place] [address] [place] Chloride [Moles/Vol] 118 mmol/L High 97-105 [facility] Comment on above: Order Comment: Speci men Type: BLOOD SPECIMEN Performed By: #### 2 777-1, 36385-0, , HFP ####[facility]ORATORYCLIA [id number] [place], [place] [id number] [place] [address] [place] CO2 [Moles/Vol] 26 mmol/L Normal 22-30 [facility] Comment on above: Order Comment: Speci men Type: BLOOD SPECIMEN Performed By: #### 2 777-1, 80026-6, , [facility] ####[facility]ORATORYCLIA [id number] [place] [address] [place] Creatinine [Mass/Vol] 0.70 mg/dL Low 0.73-1.22 [facility] Comment on above: Order Comment: Speci men Type: BLOOD SPECIMEN Performed By: #### 2 777-1, 85122-3, , [facility] ####[facility]ORATORYCLIA [id number] [place] [id number] [place] GFR/1.73 sq M.predicted MDRD [...] actual GFR. Performed By: #### 2 777-1, 22495-3, , [facility] ####[facility]ORATORYCLIA [id number] [place] [id number] [place] Glucose [Mass/Vol] 135 mg/dL High 74-99 [facility] Comment on above: Order Comment: [facility] Type: BLOOD SPECIMEN Result Comment: The [place] [employer] (ADA) provides guidance for cutoff [...] Standards of Medical Care in Diabetes 2016, [place] [employer]. Diabetes Care. 2016.39(Suppl 1). Performed By: #### 2 777-1, 65933-2, , [facility] ####[facility] LABORATORYCLIA [id number] [address] STATES [facility] Potassium [Moles/Vol] 3.9 mmol/L Normal 3.7-5.1 [facility] Comment on above: Order Comment: Speci men Type: BLOOD SPECIMEN Performed By: #### 2 777-1, 02492-5, , [facility] ####[facility]ORATORYCLIA [id number] [address] STATES [facility] Sodium [Moles/Vol] 151 mmol/L High 136-144 [facility] Comment on above: Order Comment: Speci men Type: BLOOD SPECIMEN Performed By: #### 2 777-1, 09359-6, , [facility] ####[facility]ORATORYCLIA [id number] [address] STATES [facility] Urea nitrogen [Mass/Vol] 27 mg/dL High 9-24 [facility] Comment on above: Order Comment: Speci men Type: BLOOD SPECIMEN Performed By: #### 2 777-1, 59964-8, , [facility] ####[facility]ORATORYCLIA [id number] [address] CASE MANAGEMon 06-10-2021 CASE MANAGEM Normal [facility] CBC panel Auto (Bld)on 06-10 Erythrocyte distribution width (RBC) [Ratio] 16.2 % High 11.5-15.0 [facility] Comment on above: Order Comment: Speci men Type: BLOOD SPECIMEN Performed By: #### 5 8410-2 ####[facility]ORATORYCLIA [id number] [address] Hematocrit (Bld) [Volume fraction] 34.8 % Low 39.0-51.0 [facility] Comment on above: Order Comment: Speci men Type: BLOOD SPECIMEN Performed By: #### 5 8410-2 ####[facility]ATORYCLIA [id number] [address] Hemoglobin (Bld) [Mass/Vol] 10.2 g/dL Low 13.0-17.0 [facility] Comment on above: Order Comment: Speci men Type: BLOOD SPECIMEN Performed By: #### 5 8410-2 ####[facility]ORATORYCLIA [id number] [address] MCH (RBC) [Entitic mass] 27.1 pg Normal 26.0-34.0 [facility] Comment on above: Order Comment: Speci men Type: BLOOD SPECIMEN Performed By: #### 5 8410-2 ####[facility]ATORYCLIA [id number] [address] MCHC (RBC) [Mass/Vol] 29.3 g/dL Low 30.5-36.0 [facility] Comment on above: Order Comment: Speci men Type: BLOOD SPECIMEN Performed By: #### 5 8410-2 ####[facility]ATORYCLIA [id number] [address] MCV (RBC) [Entitic vol] 92.6 fL Normal 80.0-100.0 [facility] Comment on above: Order Comment: Speci men Type: BLOOD SPECIMEN Performed By: #### 5 8410-2 ####[facility]ATORYCLIA [id number] [address] Nucleated RBC (Bld) [#/Vol] 10*3/uL Normal <0.01 [facility] Comment on above: Order Comment: Speci men Type: BLOOD SPECIMEN Performed By: #### 5 8410-2 ####[facility]ATORYCLIA [id number] [address] Platelet mean volume (Bld) [Entitic vol] 10.4 fL Normal 9.0-12.7 [facility] Comment on above: Order Comment: Speci men Type: BLOOD SPECIMEN Performed By: #### 5 8410-2 ####[facility]ATORYCLIA [id number] [address] Platelets (Bld) [#/Vol] 206 10*3/uL Normal 150-400 [facility] Comment on above: Order Comment: Speci men Type: BLOOD SPECIMEN Performed By: #### 5 8410-2 ####[facility]ORATORYCLIA [id number] [address] RBC (Bld) [#/Vol] 3.76 10*6/uL Low 4.20-6.00 [facility] Comment on above: Order Comment: Speci men Type: BLOOD SPECIMEN Performed By: #### 5 8410-2 ####[facility]ATORYCLIA [id number] [address] WBC (Bld) [#/Vol] 11.36 10*3/uL High 3.70-11.00 [facility] Comment on above: Order Comment: Speci men Type: BLOOD SPECIMEN Performed By: #### 5 8410-2 ####[facility]ORATORYCLIA [id number] [address] HEPATIC FUNCTION PNLon 06-10 Albumin [Mass/Vol] 3.1 g/dL Low 3.9-4.9 [facility] Comment on above: Order Comment: Speci men Type: BLOOD SPECIMEN Performed By: #### 2 777-1, 79989-9, , HFP ####[facility]ORATORYCLIA [id number] [address] ALP [Catalytic activity/Vol] 73 U/L Normal 38-113 [facility] Comment on above: Order Comment: Speci men Type: BLOOD SPECIMEN Performed By: #### 2 777-1, 62694-2, , HFP ####[facility]ORATORYCLIA [id number] [place] [address] [facility] ALT With P-5'-P [Catalytic activity/Vol] 64 U/L High 10-54 [facility] Comment on above: Order Comment: Speci men Type: BLOOD SPECIMEN Performed By: #### 2 777-1, 30187-1, , HFP ####[facility]ATORYCLIA [id number] [place] [address] [facility] AST With P-5'-P [Catalytic activity/Vol] 44 U/L High 14-40 [facility] Comment on above: Order Comment: Speci men Type: BLOOD SPECIMEN Performed By: #### 2 777-1, 84562-8, , HFP ####[facility]ORATORYCLIA [id number] [place], [place] [address] [place] [address] [facility] Bilirubin [Mass/Vol] 0.5 mg/dL Normal 0.2-1.3 [facility] Comment on above: Order Comment: Speci men Type: BLOOD SPECIMEN Performed By: #### 2 777-1, 74443-9, , HFP ####[facility] LABORATORYCLIA [id number] [address] Bilirubin.conjugated [Mass/Vol] mg/dL Normal <0.2 [facility] Comment on above: Order Comment: Speci men Type: BLOOD SPECIMEN Performed By: #### 2 777-1, 30220-8, , HFP ####[facility] LABORATORYCLIA [id number] [place], [place] [address] [place] [address] [facility] Protein [Mass/Vol] 5.7 g/dL Low 6.3-8.0 [facility] Comment on above: Order Comment: Speci men Type: BLOOD SPECIMEN Performed By: #### 2 777-1, 47596-7, , HFP ####[facility]ORATORYCLIA [id number] [place] [address] [facility] LEVETIRACETAMon 06-10-2021 levETIRAcetam [Mass/Vol] 57.7 ug/mL High [...] developed and its performance characteristics determined by [facility]'s Isrrael [facility] Pathology and Laboratory [facility] [place] ( [facility]). It has not been cleared or approved by the FDA. [facility] is regulated under CLIA as qualified to perform high complexity testing. This test is used for clinical purposes. It should not be regarded as investigational or for research. Performed By: #### L EVET ####[facility] REFER[facility] LABCLIA [id number] [place] [id number] [place] Magnesium SerPl-mCncon 06-10 Magnesium [Mass/Vol] 2.7 mg/dL High 1.7-2.3 [facility] Comment on above: Order Comment: Speci men Type: BLOOD SPECIMEN Performed By: #### 2 777-1, 98033-9, , [facility] ####[facility]ORATORYCLIA [id number] [place] [address] [place] Phosphate SerPl-mCncon 06-10 Phosphate [Mass/Vol] 1.8 mg/dL Low 2.7-4.8 [facility] Comment on above: Order Comment: Speci men Type: BLOOD SPECIMEN Performed By: #### 2 777-1, 59672-1, , [facility] ####[facility]ORATORYCLIA [id number] [place] [address] [place] ALLIED HEALTHon 06-09-2021 [...] SPECIMEN Performed By: #### 2 4321-2, 2776-, ####[facility]ORATORYCLIA [id number] [place] [address] [place] Calcium [Mass/Vol] 8.3 mg/dL Low 8.5-10.2 [facility] Comment on above: Order Comment: Speci men Type: BLOOD SPECIMEN Performed By: #### 2 4321-2, 2776-05, ####[facility]ORATORYCLIA [id number] [place], [place] [address] [place] [address] [place] Chloride [Moles/Vol] 116 mmol/L High 97-105 [facility] Comment on above: Order Comment: Speci men Type: BLOOD SPECIMEN Performed By: #### 2 4321-2, 2776-05, ####[facility]ORATORYCLIA [id number] [place] [address] [place] CO2 [Moles/Vol] 27 mmol/L Normal 22-30 [facility] Comment on above: Order Comment: Speci men Type: BLOOD SPECIMEN Performed By: #### 2 4321-2, 2776-05, ####[facility]ORYCLIA [id number] [place] [address] [place] Creatinine [Mass/Vol] 0.70 mg/dL Low 0.73-1.22 [facility] Comment on above: Order Comment: Speci men Type: BLOOD SPECIMEN Performed By: #### 2 4321-2, 2776-05, ####[facility]ATORYCLIA [id number] [place] [address] [place] GFR/1.73 sq M.predicted [...] GFR. Performed By: #### 2 4321-2, 2777-, ####[facility]ORATORYCLIA [id number] [place] [address] [place] Glucose [Mass/Vol] 123 mg/dL High 74-99 [facility] Comment on above: Order Comment: [facility] Type: BLOOD SPECIMEN Result Comment: The [place] [employer] (ADA) provides guidance for cutoff [...] Standards of Medical Care in Diabetes 2016, [place] [employer]. Diabetes Care. 2016.39(Suppl 1). Performed By: #### 2 4321-2, 2777-, ####[facility]ORATORYCLIA [id number] [place] [id number] [place] Potassium [Moles/Vol] 3.5 mmol/L Low 3.7-5.1 [facility] Comment on above: Order Comment: [facility] Type: BLOOD SPECIMEN Performed By: #### 2 4321-2, 277-, ####[facility]ORATORYCLIA [id number] [address] Sodium [Moles/Vol] 151 mmol/L High 136-144 [facility] Comment on above: Order Comment: Speci men Type: BLOOD SPECIMEN Performed By: #### 2 4321-2, 2776-1, ####[facility]ORATORYCLIA [id number] [address] Urea nitrogen [Mass/Vol] 39 mg/dL High 9-24 [facility] Comment on above: Order Comment: Speci men Type: BLOOD SPECIMEN Performed By: #### 2 4321-2, 2776-05, ####[facility]ORATORYCLIA [id number] [address] CBC panel Auto (Bld)on 06-09 Erythrocyte distribution width (RBC) [Ratio] 16.2 % High 11.5-15.0 [facility] Comment on above: Order Comment: Speci men Type: BLOOD SPECIMEN Performed By: #### 5 8410-2 ####[facility]ORATORYCLIA [id number] [address] Hematocrit (Bld) [Volume fraction] 33.7 % Low 39.0-51.0 [facility] Comment on above: Order Comment: Speci men Type: BLOOD SPECIMEN Performed By: #### 5 8410-2 ####[facility]ATORYCLIA [id number] [address] Hemoglobin (Bld) [Mass/Vol] 10.2 g/dL Low 13.0-17.0 [facility] Comment on above: Order Comment: Speci men Type: BLOOD SPECIMEN Performed By: #### 5 8410-2 ####[facility]ORATORYCLIA [id number] [address] MCH (RBC) [Entitic mass] 27.4 pg Normal 26.0-34.0 [facility] Comment on above: Order Comment: Speci men Type: BLOOD SPECIMEN Performed By: #### 5 8410-2 ####[facility]ATORYCLIA [id number] [address] MCHC (RBC) [Mass/Vol] 30.3 g/dL Low 30.5-36.0 [facility] Comment on above: Order Comment: Speci men Type: BLOOD SPECIMEN Performed By: #### 5 8410-2 ####[facility]ORATORYCLIA [id number] [address] MCV (RBC) [Entitic vol] 90.6 fL Normal 80.0-100.0 [facility] Comment on above: Order Comment: Speci men Type: BLOOD SPECIMEN Performed By: #### 5 8410-2 ####[facility]ORATORYCLIA [id number] [address] Nucleated RBC (Bld) [#/Vol] 10*3/uL Normal <0.01 [facility] Comment on above: Order Comment: Speci men Type: BLOOD SPECIMEN Performed By: #### 5 8410-2 ####[facility]ATORYCLIA [id number] [address] Platelet mean volume (Bld) [Entitic vol] 10.3 fL Normal 9.0-12.7 [facility] Comment on above: Order Comment: Speci men Type: BLOOD SPECIMEN Performed By: #### 5 8410-2 ####[facility]ORATORYCLIA [id number] [address] Platelets (Bld) [#/Vol] 219 10*3/uL Normal 150-400 [facility] Comment on above: Order Comment: Speci men Type: BLOOD SPECIMEN Performed By: #### 5 8410-2 ####[facility]ATORYCLIA [id number] [address] RBC (Bld) [#/Vol] 3.72 10*6/uL Low 4.20-6.00 [facility] Comment on above: Order Comment: Speci men Type: BLOOD SPECIMEN Performed By: #### 5 8410-2 ####[facility]ATORYCLIA [id number] [address] WBC (Bld) [#/Vol] 13.02 10*3/uL High 3.70-11.00 [facility] Comment on above: Order Comment: Speci men Type: BLOOD SPECIMEN Performed By: #### 5 8410-2 ####[facility]ATORYCLIA [id number] [address] CONSULT PROGon 06-09-2021 CONSULT PROG Normal [facility] CONSULT PROG Normal [facility] CT BRAIN WO IVCONon 06-09-[address] BRAIN WO IVCON Normal [facility] Magnesium SerPl-mCncon 06-09 Magnesium [Mass/Vol] 2.8 mg/dL High 1.7-2.3 [facility] Comment on above: Order Comment: Speci men Type: BLOOD SPECIMEN Performed By: #### 2 4321-2, 2777-1, ####[facility]ATORYCLIA [id number] [address] NURSING PROGon 06-09-2021 NURSING PROG Normal [facility] NUTRITIONon 06-09-2021 NUTRITION Normal [facility] PT EDon 06-09-2021 PT ED Normal [facility] Phosphate SerPl-mCncon 06-09 Phosphate [Mass/Vol] 2.2 mg/dL Low 2.7-4.8 [facility] Comment on above: Order Comment: Speci men Type: BLOOD SPECIMEN Performed By: #### 2 4321-2, 2777-1, 62710-4 ####[facility]ORYCLIA [id number] [address] Vancomycin random [Mass/Vol] on 06-09-2021 Vancomycin [Mass/Vol] 18.9 ug/mL Normal 10.0-20.0 [facility] Comment on above: Order Comment: Speci men Type: BLOOD SPECIMEN Result Comment: Refe rence ranges and high/low indicator flags are provided as general guidelines only. The treating physician must determine appropriate target levels/dosing based on the specific clinical situation. Performed By: #### 4 091-5 ####[facility]ORYCLIA [id number] [place] [address] [place] XR ABD 2V [...] 1 Rare Staphylococcus saccharolyticus Identification performed by [facility] CC-Main See scanned document for susceptibility report Normal [facility] Comment on above: Performed By: #### 6 [id number] 635-3 ####[facility]ORYCLIA [id number] [place] [address] [place] [place] Bacteria Wnd Culton 06-08-19 22 Bacteria identified Cx Nom (Wound) CULTURE, INTRAOPERATIVE HARDWARE: No growth 5 days GRAM STAIN: Not performed on specimen type Normal [facility] Comment on above: Performed By: #### 6 462-6 635-3 ####[facility]ORYCLIA [id number] [place] [address] [place] Basic metabolic 2000 panelon 06-08-2021 Anion gap [Moles/Vol] 9 mmol/L Normal 9-18 [facility] Comment on above: Order Comment: Speci men Type: BLOOD SPECIMEN Performed By: #### 2 4321-2, 2776-05, ####[facility]ORYCLIA [id number] [address] STATES OF [facility] Calcium [Mass/Vol] 8.7 mg/dL Normal 8.5-10.2 [facility] Comment on above: Order Comment: Speci men Type: BLOOD SPECIMEN Performed By: #### 2 4321-2, 2776-05, ####[facility]ORYCLIA [id number] [address] [place] Chloride [Moles/Vol] 113 mmol/L High 97-105 [facility] Comment on above: Order Comment: Speci men Type: BLOOD SPECIMEN Performed By: #### 2 4321-2, 2776-05, ####[facility]ORYCLIA [id number] [address] [place] CO2 [Moles/Vol] 26 mmol/L Normal 22-30 [facility] Comment on above: Order Comment: Speci men Type: BLOOD SPECIMEN Performed By: #### 2 4321-2, 2776-05, ####[facility]ORYCLIA [id number] [address] [place] Creatinine [Mass/Vol] 0.68 mg/dL Low 0.73-1.22 [facility] Comment on above: Order Comment: Speci men Type: BLOOD SPECIMEN Performed By: #### 2 4321-2, 2776-05, ####[facility]ORYCLIA [id number] [place] [address] [place] GFR/1.73 sq M.predicted [...] GFR. Performed By: #### 2 4321-2, 2776-05, ####[facility] [id number] [place] [address] [place] Glucose [Mass/Vol] 146 mg/dL High 74-99 [facility] Comment on above: Order Comment: Speci men Type: BLOOD SPECIMEN Result Comment: The [place] [employer] (ADA) provides guidance for cutoff [...] Standards of Medical Care in Diabetes 2016, [place] [employer]. Diabetes Care. 2016.39(Suppl 1). Performed By: #### 2 4321-2, 2776-05, ####[facility]ORYCLIA [id number] [place] [address] [place] Potassium [Moles/Vol] 3.6 mmol/L Low 3.7-5.1 [facility] Comment on above: Order Comment: Speci men Type: BLOOD SPECIMEN Performed By: #### 2 4321-2, 2776-05, ####[facility]ORYCLIA [id number] [place] [address] [place] Sodium [Moles/Vol] 148 mmol/L High 136-144 [facility] Comment on above: Order Comment: Speci men Type: BLOOD SPECIMEN Performed By: #### 2 4321-2, 277-1, ####[facility]ORYCLIA [id number] [address] Urea nitrogen [Mass/Vol] 36 mg/dL High 9-24 [facility] Comment on above: Order Comment: Speci men Type: BLOOD SPECIMEN Performed By: #### 2 4321-2, 2776-, ####[facility]ORYCLIA [id number] [address] CASE MANAGEMon 06-08-2021 CASE MANAGEM Normal [facility] CBC panel Auto (Bld)on 06-08 Erythrocyte distribution width (RBC) [Ratio] 16.0 % High 11.5-15.0 [facility] Comment on above: Order Comment: Speci men Type: BLOOD SPECIMEN Performed By: #### 5 8410-2 ####[facility]ORYCLIA [id number] [address] Hematocrit (Bld) [Volume fraction] 38.4 % Low 39.0-51.0 [facility] Comment on above: Order Comment: Speci men Type: BLOOD SPECIMEN Performed By: #### 5 8410-2 ####[facility]ORYCLIA [id number] [address] Hemoglobin (Bld) [Mass/Vol] 12.1 g/dL Low 13.0-17.0 [facility] Comment on above: Order Comment: Speci men Type: BLOOD SPECIMEN Performed By: #### 5 8410-2 ####[facility]ORYCLIA [id number] [address] MCH (RBC) [Entitic mass] 28.3 pg Normal 26.0-34.0 [facility] Comment on above: Order Comment: Speci men Type: BLOOD SPECIMEN Performed By: #### 5 8410-2 ####[facility]ORYCLIA [id number] [address] MCHC (RBC) [Mass/Vol] 31.5 g/dL Normal 30.5-36.0 [facility] Comment on above: Order Comment: Speci men Type: BLOOD SPECIMEN Performed By: #### 5 8410-2 ####[facility]ORYCLIA [id number] [address] MCV (RBC) [Entitic vol] 89.9 fL Normal 80.0-100.0 [facility] Comment on above: Order Comment: Speci men Type: BLOOD SPECIMEN Performed By: #### 5 8410-2 ####[facility]ORYCLIA [id number] [address] Nucleated RBC (Bld) [#/Vol] 10*3/uL Normal <0.01 [facility] Comment on above: Order Comment: Speci men Type: BLOOD SPECIMEN Performed By: #### 5 8410-2 ####[facility]ORYCLIA [id number] [address] Platelet mean volume (Bld) [Entitic vol] 10.3 fL Normal 9.0-12.7 [facility] Comment on above: Order Comment: Speci men Type: BLOOD SPECIMEN Performed By: #### 5 8410-2 ####[facility]ORYCLIA [id number] [address] Platelets (Bld) [#/Vol] 236 10*3/uL Normal 150-400 [facility] Comment on above: Order Comment: Speci men Type: BLOOD SPECIMEN Performed By: #### 5 8410-2 ####[facility]ORYCLIA [id number] [address] RBC (Bld) [#/Vol] 4.27 10*6/uL Normal 4.20-6.00 [facility] Comment on above: Order Comment: Speci men Type: BLOOD SPECIMEN Performed By: #### 5 8410-2 ####[facility]ORYCLIA [id number] [address] WBC (Bld) [#/Vol] 11.06 10*3/uL High 3.70-11.00 [facility] Comment on above: Order Comment: Speci men Type: BLOOD SPECIMEN Performed By: #### 5 8410-2 ####[facility]ORYCLIA [id number] [address] CONSULT PROGon 06-08-2021 CONSULT PROG Normal [facility] CT BRAIN WO IVCONon 06-08-19 CT BRAIN WO IVCON [facility] Magnesium SerPl-mCncon 06-08 Magnesium [Mass/Vol] 2.8 mg/dL High 1.7-2.3 [facility] Comment on above: Order Comment: Speci men Type: BLOOD SPECIMEN Performed By: #### 2 4321-2, 2777-1, 56753-1 ####[facility]ORYCLIA [id number] [address] Microorganism Spec Culton Microorganism identified Cx Nom (Unsp spec) CULTURE, FUNGAL: No Fungus isolated after 28 days FUNGAL SMEAR: No fungus seen [facility] Comment on above: Performed By: #### 1 1475-1 ####[facility]ORYCLIA [id number] [address] NURSING PROGon 06-08-2021 NURSING PROG Normal [facility] OPERATIVE NOon 06-08-2021 OPERATIVE NO Normal [facility] OPERATIVE NO [facility] PT panel Coag (PPP)on 2021 INR Coag (PPP) [Relative time] 1.1 {INR} Normal 0.9-1.3 [facility] Comment on above: Order Comment: Speci men Type: BLOOD SPECIMEN Result Comment: Yris min K Antagonist (VKA) Therapeutic Range: INR 2 to 3 (Target INR of 2.5)Note: For patients treated with VKA drugs, such as warfarin, the [employer] 2012 Guideline recommends [...] al. Chest 2012, 141:7S-47SNishmariangel RA, et al. [facility] 2017, 70: 252-289 Performed By: #### 3 4528-0, 05134-4 ####[facility]ORYCLIA [id number] [address] PT Coag (PPP) [Time] 11.9 s Normal 9.7-13.0 [facility] Comment on above: Order Comment: Speci men Type: BLOOD SPECIMEN Performed By: #### 3 4528-0, 40053-8 ####[facility]ORYCLIA [id number] [address] Phosphate SerPl-mCncon 06-08 Phosphate [Mass/Vol] 2.3 mg/dL Low 2.7-4.8 [facility] Comment on above: Order Comment: Speci men Type: BLOOD SPECIMEN Performed By: #### 2 4321-2, 2777-1, 52643-5 ####[facility]ORYCLIA [id number] [address] aPTT PPPon 06-08-2021 aPTT Coag (PPP) [Time] 24.2 s Normal 23.0-32.4 [facility] Comment on above: Order Comment: Speci men Type: BLOOD SPECIMEN Performed By: #### 3 4528-0, 56579-3 ####[facility]ORYCLIA [id number] [address] ALLIED HEALTHon 06-07-2021 ALLIED HEALTH Normal [...] on above: Performed By: #### 6 06-4 ####[facility]ORYCLIA [id number] [address] OF [facility] Basic metabolic 2000 panelon 06-07-2021 Anion gap [Moles/Vol] 9 mmol/L Normal 9-18 [facility] Comment on above: Order Comment: Speci men Type: BLOOD SPECIMEN Performed By: #### 1 9123-9, 2777-1, 20183-6 ####[facility]ORYCLIA [id number] [place] [address] [place] Calcium [Mass/Vol] 8.8 mg/dL Normal 8.5-10.2 [facility] Comment on above: Order Comment: Speci men Type: BLOOD SPECIMEN Performed By: #### 1 9123-9, 2776-, 94275-2 ####[facility]ORYCLIA [id number] [place] [address] [place] Chloride [Moles/Vol] 111 mmol/L High 97-105 [facility] Comment on above: Order Comment: Speci men Type: BLOOD SPECIMEN Performed By: #### 1 9123-9, 2776-1, 36085-0 ####[facility]ORYCLIA [id number] [place] [address] [place] CO2 [Moles/Vol] 27 mmol/L Normal 22-30 [facility] Comment on above: Order Comment: Speci men Type: BLOOD SPECIMEN Performed By: #### 1 9123-9, 2777-1, 38983-2 ####[facility]ORYCLIA [id number] [place] [address] [place] Creatinine [Mass/Vol] 0.66 mg/dL Low 0.73-1.22 [facility] Comment on above: Order [facility]: [facility]IM[facility] Performed By: #### 1 9123-9, 2777-1, 37499-2 ####[facility]ORYCLIA [id number] [address] [place] GFR/1.73 sq M.predicted MDRD (S/P/Bld) [Vol rate/Area] mL/min/{1.73_m2} Normal [facility] Comment on above: Order Comment: [facility] Type: BLOOD SPECIMEN Result Comment: >60e [...] GFR. Performed By: #### 1 9123-9, 2777-1, 05671-7 ####[facility]ORYCLIA [id number] [place] [address] [place] Glucose [Mass/Vol] 123 mg/dL High 74-99 [facility] Comment on above: Order Comment: [facility] Type: BLOOD SPECIMEN Result Comment: The [place] [employer] (ADA) provides guidance for cutoff [...] Standards of Medical Care in Diabetes 2016, [place] [employer]. Diabetes Care. 2016.39(Suppl 1). Performed By: #### 1 9123-9, 2777-, 87889-3 ####[facility]ORYCLIA [id number] [address] Potassium [Moles/Vol] 3.6 mmol/L Low 3.7-5.1 [facility] Comment on above: Order Comment: Speci men Type: BLOOD SPECIMEN Performed By: #### 1 9123-9, 2777, 17870-6 ####[facility]ORYCLIA [id number] [address] Sodium [Moles/Vol] 147 mmol/L High 136-144 [facility] Comment on above: Order Comment: Speci men Type: BLOOD SPECIMEN Performed By: #### 1 9123-9, 2777, 36587-2 ####[facility]ORYCLIA [id number] [address] Urea nitrogen [Mass/Vol] 30 mg/dL High 9-24 [facility] Comment on above: Order Comment: Speci men Type: BLOOD SPECIMEN Performed By: #### 1 9123-9, 2777, 48476-7 ####[facility]ORYCLIA [id number] [address] CBC W Auto Differential pane l (Bld)on 06-07-2021 Basophils (Bld) [#/Vol] 10*3/uL Normal <0.11 [facility] Comment on above: Order Comment: Speci men Type: BLOOD SPECIMEN Performed By: #### 5 7021-8 ####[facility]ORYCLIA [id number] [address] Basophils/100 WBC (Bld) 0.2 % Normal [facility] Comment on above: Order Comment: Speci men Type: BLOOD SPECIMEN Performed By: #### 5 7021-8 ####[facility]ORYCLIA [id number] [address] Differential cell count method Nom (Bld) Auto Normal [facility] Comment on above: Order Comment: Speci men Type: BLOOD SPECIMEN Performed By: #### 5 7021-8 ####[facility]CLIA [id number] [address] Eosinophils (Bld) [#/Vol] 0.06 10*3/uL Normal <0.46 [facility] Comment on above: Order Comment: Speci men Type: BLOOD SPECIMEN Performed By: #### 5 7021-8 ####[facility]CLIA [id number] [address] Eosinophils/100 WBC (Bld) 0.6 % Normal [facility] Comment on above: Order Comment: Speci men Type: BLOOD SPECIMEN Performed By: #### 5 7021-8 ####[facility]ORYCLIA [id number] [address] Erythrocyte distribution width (RBC) [Ratio] 15.8 % High 11.5-15.0 [facility] Comment on above: Order Comment: Speci men Type: BLOOD SPECIMEN Performed By: #### 5 7021-8 ####[facility]ORYCLIA [id number] [address] Hematocrit (Bld) [Volume fraction] 40.4 % Normal 39.0-51.0 [facility] Comment on above: Order Comment: Speci men Type: BLOOD SPECIMEN Performed By: #### 5 7021-8 ####[facility]CLIA [id number] [address] Hemoglobin (Bld) [Mass/Vol] 12.4 g/dL Low 13.0-17.0 [facility] Comment on above: Order Comment: Speci men Type: BLOOD SPECIMEN Performed By: #### 5 7021-8 ####[facility]CLIA [id number] [address] IMMATURE GRAN % 0.7 % Normal [facility] Comment on above: Order Comment: Speci men Type: BLOOD SPECIMEN Performed By: #### 5 7021-8 ####[facility]ORYCLIA [id number] [address] IMMATURE GRAN ABS 0.07 k/uL Normal <0.10 [facility] Comment on above: Order Comment: Speci men Type: BLOOD SPECIMEN Performed By: #### 5 7021-8 ####[facility]ORYCLIA [id number] [address] Lymphocytes (Bld) [#/Vol] 1.43 10*3/uL Normal 1.00-4.00 [facility] Comment on above: Order Comment: Speci men Type: BLOOD SPECIMEN Performed By: #### 5 7021-8 ####[facility]ORYCLIA [id number] [address] Lymphocytes/100 WBC (Bld) 14.1 % Normal [facility] Comment on above: Order Comment: Speci men Type: BLOOD SPECIMEN Performed By: #### 5 7021-8 ####[facility]ORYCLIA [id number] [address] MCH (RBC) [Entitic mass] 27.6 pg Normal 26.0-34.0 [facility] Comment on above: Order Comment: Speci men Type: BLOOD SPECIMEN Performed By: #### 5 7021-8 ####[facility]ORYCLIA [id number] [address] MCHC (RBC) [Mass/Vol] 30.7 g/dL Normal 30.5-36.0 [facility] Comment on above: Order Comment: Speci men Type: BLOOD SPECIMEN Performed By: #### 5 7021-8 ####[facility]CLIA [id number] [address] MCV (RBC) [Entitic vol] 89.8 fL Normal 80.0-100.0 [facility] Comment on above: Order Comment: Speci men Type: BLOOD SPECIMEN Performed By: #### 5 7021-8 ####[facility]ORYCLIA [id number] [place], [place] [address] [place] [address] [place] Monocytes (Bld) [#/Vol] 0.82 10*3/uL Normal <0.87 [facility] Comment on above: Order Comment: Speci men Type: BLOOD SPECIMEN Performed By: #### 5 7021-8 ####[facility]ORYCLIA [id number] [address] Monocytes/100 WBC (Bld) 8.1 % Normal [facility] Comment on above: Order Comment: Speci men Type: BLOOD SPECIMEN Performed By: #### 5 7021-8 ####[facility]CLIA [id number] [address] Neutrophils (Bld) [#/Vol] 7.74 10*3/uL High 1.45-7.50 [facility] Comment on above: Order Comment: Speci men Type: BLOOD SPECIMEN Performed By: #### 5 7021-8 ####[facility]CLIA [id number] [address] Neutrophils/100 WBC (Bld) 76.3 % Normal [facility] Comment on above: Order Comment: Speci men Type: BLOOD SPECIMEN Performed By: #### 5 7021-8 ####[facility]ORYCLIA [id number] [address] OF [facility] Nucleated RBC (Bld) [#/Vol] 10*3/uL Normal <0.01 [facility] Comment on above: Order Comment: Speci men Type: BLOOD SPECIMEN Performed By: #### 5 7021-8 ####[facility]CLIA [id number] [address] Nucleated RBC/100 WBC (Bld) [Ratio] 0.0 /100 WBC Normal 0.0 [facility] Comment on above: Order Comment: Speci men Type: BLOOD SPECIMEN Performed By: #### 5 7021-8 ####[facility]CLIA [id number] [address] Platelet mean volume (Bld) [Entitic vol] 10.4 fL Normal 9.0-12.7 [facility] Comment on above: Order Comment: Speci men Type: BLOOD SPECIMEN Performed By: #### 5 7021-8 ####[facility]ORYCLIA [id number] [address] Platelets (Bld) [#/Vol] 236 10*3/uL Normal 150-400 [facility] Comment on above: Order Comment: Speci men Type: BLOOD SPECIMEN Performed By: #### 5 7021-8 ####[facility]ORYCLIA [id number] [address] RBC (Bld) [#/Vol] 4.50 10*6/uL Normal 4.20-6.00 [facility] Comment on above: Order Comment: Speci men Type: BLOOD SPECIMEN Performed By: #### 5 7021-8 ####[facility]ORYCLIA [id number] [address] WBC (Bld) [#/Vol] 10.14 10*3/uL Normal 3.70-11.00 [facility] Comment on above: Order Comment: Speci men Type: BLOOD SPECIMEN Performed By: #### 5 7021-8 ####[facility]ORYCLIA [id number] [address] CBC panel Auto (Bld)on 06-07 Erythrocyte distribution width (RBC) [Ratio] 15.8 % High 11.5-15.0 [facility] Comment on above: Order Comment: Speci men Type: BLOOD SPECIMEN Performed By: #### 5 8410-2 ####[facility]ORYCLIA [id number] [address] Hematocrit (Bld) [Volume fraction] 40.0 % Normal 39.0-51.0 [facility] Comment on above: Order Comment: Speci men Type: BLOOD SPECIMEN Performed By: #### 5 8410-2 ####[facility]ORYCLIA [id number] [address] Hemoglobin (Bld) [Mass/Vol] 12.3 g/dL Low 13.0-17.0 [facility] Comment on above: Order Comment: Speci men Type: BLOOD SPECIMEN Performed By: #### 5 8410-2 ####[facility]ORYCLIA [id number] [address] MCH (RBC) [Entitic mass] 27.3 pg Normal 26.0-34.0 [facility] Comment on above: Order Comment: Speci men Type: BLOOD SPECIMEN Performed By: #### 5 8410-2 ####[facility]ORYCLIA [id number] [address] MCHC (RBC) [Mass/Vol] 30.8 g/dL Normal 30.5-36.0 [facility] Comment on above: Order Comment: Speci men Type: BLOOD SPECIMEN Performed By: #### 5 8410-2 ####[facility]ORYCLIA [id number] [address] MCV (RBC) [Entitic vol] 88.7 fL Normal 80.0-100.0 [facility] Comment on above: Order Comment: Speci men Type: BLOOD SPECIMEN Performed By: #### 5 8410-2 ####[facility]ORYCLIA [id number] [address] Nucleated RBC (Bld) [#/Vol] 10*3/uL Normal <0.01 [facility] Comment on above: Order Comment: Speci men Type: BLOOD SPECIMEN Performed By: #### 5 8410-2 ####[facility]ORYCLIA [id number] [address] Platelet mean volume (Bld) [Entitic vol] 10.0 fL Normal 9.0-12.7 [facility] Comment on above: Order Comment: Speci men Type: BLOOD SPECIMEN Performed By: #### 5 8410-2 ####[facility]ORYCLIA [id number] [address] STATES [facility] Platelets (Bld) [#/Vol] 234 10*3/uL Normal 150-400 [facility] Comment on above: Order Comment: Speci men Type: BLOOD SPECIMEN Performed By: #### 5 8410-2 ####[facility]ORYCLIA [id number] [address] [place] RBC (Bld) [#/Vol] 4.51 10*6/uL Normal 4.20-6.00 [facility] Comment on above: Order Comment: Speci men Type: BLOOD SPECIMEN Performed By: #### 5 8410-2 ####[facility]ORYCLIA [id number] [address] OF [facility] WBC (Bld) [#/Vol] 11.47 10*3/uL High 3.70-11.00 [facility] Comment on above: Order Comment: Speci men Type: BLOOD SPECIMEN Performed By: #### 5 8410-2 ####[facility]ORYCLIA [id number] [address] CONSULT PROGon 06-07-2021 CONSULT PROG Normal [facility] CONSULT PROG Normal [facility] CSF MANUAL DIFFon 06-07-2021 DIF TTL, CSF 92 cells counted Normal [facility] Comment on above: Order Comment: Speci men Type: CEREBROSPINAL FLUID Performed By: #### 3 4563-7, [id number], [id number] ####[facility]ORYCLIA [id number] [address] [place] EOSIN%, CSF 1 % Normal [facility] Comment on above: Order Comment: Speci men Type: CEREBROSPINAL FLUID Performed By: #### 3 4563-7, [id number], [id number] ####[facility]ORYCLIA [id number] [address] [place] LYMPH%, CSF 21 % Low 50-90 [facility] Comment on above: Order Comment: Speci men Type: CEREBROSPINAL FLUID Performed By: #### 3 4563-7, [id number], [id number] ####[facility]ORYCLIA [id number] [address] [place] MACRO%, CSF 27 % High <1 [facility] Comment on above: Order Comment: Speci men Type: CEREBROSPINAL FLUID Result Comment: Tati ected result: Previously reported as 22 % on 06/07/2021 at 1:49 PM EST. Performed By: #### 3 4563-7, [id number], [id number] ####[facility]ORYCLIA [id number] [address] [place] MONO%, CSF 36 % Normal 10-50 [facility] Comment on above: Order Comment: Speci men Type: CEREBROSPINAL FLUID Performed By: #### 3 4563-7, [id number], [id number] ####[facility]ORYCLIA [id number] [address] NEUT%, CSF 11 % High 0-3 [facility] Comment on above: Order Comment: Speci men Type: CEREBROSPINAL FLUID Performed By: #### 3 4563-7, [id number], [id number] ####[facility]ORYCLIA [id number] [address] OTHER CL%, CSF 4 % Normal [facility] Comment on above: Order Comment: Speci men Type: CEREBROSPINAL FLUID Result Comment: Path review to follow.Corrected result: Previously reported as 10 % on 06/07/2021 at 1:49 PM EST. Performed By: #### 3 4563-7, [id number], [id number] ####[facility]ORYCLIA [id number] [address] CSF PATHOLOGIST INTERP (LAB REFLEX ORDER-NO BILL)on 06-07-2021 CSF STAFF REVIEW Negative for maligna nt cells. Rare immature myeloid or ventricular lining cells. Normal [facility] Comment on above: Order Comment: Speci men Type: CEREBROSPINAL FLUID Performed By: #### 3 4563-7, [id number], [id number] ####[facility]ORYCLIA [id number] [place], [place] [id number] [place] [address] Pathologist name Reviewed by Eloise rebolledo MD [facility] Comment on above: Order Comment: Speci men Type: CEREBROSPINAL FLUID Performed By: #### 3 4563-7, [id number], [id number] ####[facility]ORYCLIA [id number] [place], [place] [id number] [place] [address] CT BRAIN WO IVCONon 06-07-19 CT BRAIN WO IVCON Normal [facility] CT BRAIN WO IVCON Normal [facility] Cell count panel (CSF)on Clarity (CSF) Clear Normal Clear [facility] Comment on above: Order Comment: Speci men Type: CEREBROSPINAL FLUID Performed By: #### 3 4563-7, [id number], [id number] ####[facility]ORYCLIA [id number] [place], [place] [id number] [place] [address] Clarity (Unsp spec) Not Indicated Normal Clear [facility] Comment on above: Order Comment: Speci men Type: CEREBROSPINAL FLUID Performed By: #### 3 4563-7, [id number], [id number] ####[facility]ORYCL[facility] [id number] [place], [place] [id number] [place] [address] Color (CSF) Colorless Normal Colorless [facility] Comment on above: Order Comment: Speci men Type: CEREBROSPINAL FLUID Performed By: #### 3 4563-7, [id number], [id number] ####[facility]ORATORYCLIA [id number] [place], [place] [id number] [place] [address] Color (Spun CSF) Not Indicated Normal Colorless [facility] Comment on above: Order Comment: Speci men Type: CEREBROSPINAL FLUID Performed By: #### 3 4563-7, [id number], [id number] ####[facility]ORYCLIA [id number] [place], [place] [id number] [place] [address] CSF TUBE NUMBER Sterile Container Normal [facility] Comment on above: Order Comment: Speci men Type: CEREBROSPINAL FLUID Performed By: #### 3 4563-7, [id number], [id number] ####[facility]ORYCLIA [id number] [address] RBC Manual cnt (CSF) [#/Vol] 42 cells/uL High 0-5 [facility] Comment on above: Order Comment: Speci men Type: CEREBROSPINAL FLUID Performed By: #### 3 4563-7, [id number], [id number] ####[facility]ORYCLIA [id number] [address] WBC Manual cnt (CSF) [#/Vol] 1 cells/uL Normal 0-5 [facility] Comment on above: Order Comment: Speci men Type: CEREBROSPINAL FLUID Performed By: #### 3 4563-7, [id number], [id number] ####[facility]ATORYCLIA [id number] [address] Glucose CSF-mCncon Glucose (CSF) [Mass/Vol] 92 [...] Glucose HK (GLUC3) [package insert V 12.0 French]. [facility], [place], [place]. September 2015. 2. Michelle Moore, Loki, H. (2015). Chapter 7: Glucose and Lactate. Marianela Alcocer al.(eds.), Cerebrospinal Fluid in Clinical Neurology. [place]: [employer]. Performed By: #### 2 880-3, 2342-4 ####[facility]ORYCLIA [id number] [address] Lactate (Bld) [Moles/Vol]on 06-07-2021 Lactate [Moles/Vol] 0.9 mmol/L Normal 0.5-2.2 [facility] Comment on above: Order Comment: Speci men Type: BLOOD SPECIMEN Performed By: #### 3 2693-4 ####[facility]ATORYCLIA [id number] [address] Lipase SerPl-cCncon 06-07-19 22 Lipase [Catalytic activity/Vol] 35 U/L Normal 16-61 [facility] Comment on above: Order Comment: Speci men Type: BLOOD SPECIMEN Performed By: #### 3 040-3, PROCAL ####[facility]ORYCLIA [id number] [address] Magnesium SerPl-mCncon 06-07 Magnesium [Mass/Vol] 2.7 mg/dL High 1.7-2.3 [facility] Comment on above: Order Comment: Speci men Type: BLOOD SPECIMEN Performed By: #### 1 9123-9, 2777-1, 95313-8 ####[facility]ATORYCLIA [id number] [address] PROCALCITONIN (LAB)on 2021 Procalcitonin [Mass/Vol] 0.13 ng/mL High <0.09 [facility] Comment on above: Order Comment: Speci men Type: BLOOD SPECIMEN Result Comment: For a guided interpretation of test results, please visit the Change in Procalcitonin Calculator, [email or web address]. Performed By: #### 3 040-3, PROCAL ####[facility]ORYCLIA [id number] [address] Phosphate SerPl-mCncon 06-07 Phosphate [Mass/Vol] 1.9 mg/dL Low 2.7-4.8 [facility] Comment on above: Order Comment: Speci men Type: BLOOD SPECIMEN Performed By: #### 1 9123-9, 2777-1, 85880-2 ####[facility]ORYCLIA [id number] [address] [facility] Prot CSF-mCncon 06-07-2021 Protein (CSF) [Mass/Vol] 33 mg/dL Normal 15-45 [facility] Comment on above: Order Comment: Speci men Type: CEREBROSPINAL FLUID Performed By: #### 2 880-3, 2342-4 ####[facility]ORYCLIA [id number] [address] SARS-CoV-2 RNA Resp Ql MEGAN+p robeon 06-07-2021 SARS-CoV-2 (COVID-19) RNA MEGAN+probe Ql (Resp) COVID 19 RESULT: SARS-CoV-2 (Agent of COVID-19) Not Detected by PCR. This test has been authorized by FDA under an Emergency Use Authorization (EUA). Normal [facility] Comment on above: Performed By: #### 9 4500-6 ####[facility]ATORYCLIA [id number] [address] TYPE AND SCREENon 06-07-2021 ABO O Normal [facility] Comment on above: Order Comment: Speci men Type: BLOOD SPECIMEN Performed By: #### T SCR ####[facility] BANKCLIA [id number] [address] HISTORICAL AB SCR STATUS Negative Normal [facility] Comment on above: Order Comment: Speci men Type: BLOOD SPECIMEN Performed By: #### T SCR ####[facility]CLIA [id number] [address] Rh Nom (Bld) Positive Normal [facility] Comment on above: Order Comment: Speci men Type: BLOOD SPECIMEN Performed By: #### T SCR ####[facility]ANKCLIA [id number] [address] TYPE AND SCREEN EXPIRATION 06/10/2021 23:59 Normal [facility] Comment on above: Order Comment: Speci men Type: BLOOD SPECIMEN Performed By: #### T SCR ####[facility]ANKCLIA [id number] [address] Vancomycin random [Mass/Vol] on 06-07-2021 Vancomycin [Mass/Vol] 16.5 ug/mL Normal 10.0-20.0 [facility] Comment on above: Order Comment: Speci men Type: BLOOD SPECIMEN Result Comment: Refe rence ranges and high/low indicator flags are provided as general guidelines only. The treating physician must determine appropriate target levels/dosing based on the specific clinical situation. Performed By: #### 4 091-5 ####[facility]ORATORYCLIA [id number] [address] [place] [facility] XR CHEST 1V FRONTAL PORTon 0 06-07-2021 XR CHEST 1V FRONTAL PORT Normal [facility] Basic metabolic 2000 panelon 06-06-2021 Anion gap [Moles/Vol] 11 mmol/L Normal 9-18 [facility] Comment on above: Order Comment: Speci men Type: BLOOD SPECIMEN Performed By: #### 2 4321-2, , 2776-05 ####[facility]ATORYCLIA [id number] [address] [place] [facility] Calcium [Mass/Vol] 8.6 mg/dL Normal 8.5-10.2 [facility] Comment on above: Order Comment: Speci men Type: BLOOD SPECIMEN Performed By: #### 2 4321-2, , 2776-05 ####[facility]ORYCLIA [id number] [address] [place] [facility] Chloride [Moles/Vol] 108 mmol/L High 97-105 [facility] Comment on above: Order Comment: Speci men Type: BLOOD SPECIMEN Performed By: #### 2 4321-2, , 2776-05 ####[facility]CLIA [id number] [address] [place] [facility] CO2 [Moles/Vol] 25 mmol/L Normal 22-30 [facility] Comment on above: Order Comment: Speci men Type: BLOOD SPECIMEN Performed By: #### 2 4321-2, , 2776-05 ####[facility]ORYCLIA [id number] [address] [facility] Creatinine [Mass/Vol] 0.76 mg/dL Normal 0.73-1.22 [facility] Comment on above: Order Comment: Speci [facility] Type: BLOOD SPECIMEN Performed By: #### 2 4321-2, , 2776-05 ####[facility]ORATORYCLIA [id number] [place] [id number] [place] GFR/1.73 sq M.predicted MDRD [...] Performed By: #### 2 4321-2, , 2776-05 ####[facility]ATORYCLIA [id number] [place] [id number] [place] Glucose [Mass/Vol] 116 mg/dL High 74-99 [facility] Comment on above: Order Comment: Speci men Type: BLOOD SPECIMEN Result Comment: The [place] Diabetes Association (ADA) provides guidance for cutoff [...] Standards of Medical Care in Diabetes 2016, [place] [employer]. Diabetes Care. 2016.39(Suppl 1). Performed By: #### 2 4321-2, , 2776-05 ####[facility]ORATORYCLIA [id number] [address] STATES [facility] Potassium [Moles/Vol] 3.5 mmol/L Low 3.7-5.1 [facility] Comment on above: Order Comment: Speci men Type: BLOOD SPECIMEN Performed By: #### 2 4321-2, , 2776-05 ####[facility]ATORYCLIA [id number] [address] STATES [facility] Sodium [Moles/Vol] 144 mmol/L Normal 136-144 [facility] Comment on above: Order Comment: Speci men Type: BLOOD SPECIMEN Performed By: #### 2 4321-2, , 2776-05 ####[facility]ORYCLIA [id number] [address] STATES [facility] Urea nitrogen [Mass/Vol] 31 mg/dL High 9-24 [facility] Comment on above: Order Comment: Speci men Type: BLOOD SPECIMEN Performed By: #### 2 4321-2, , 2776-05 ####[facility]ATORYCLIA [id number] [address] [facility] CASE MANAGEMon 06-06-2021 CASE MANAGEM Normal [facility] CBC panel Auto (Bld)on 06-06 Erythrocyte distribution width (RBC) [Ratio] 15.8 % High 11.5-15.0 [facility] Comment on above: Order Comment: Speci men Type: BLOOD SPECIMEN Performed By: #### 5 8410-2 ####[facility]ORYCLIA [id number] [address] Hematocrit (Bld) [Volume fraction] 39.5 % Normal 39.0-51.0 [facility] Comment on above: Order Comment: Speci men Type: BLOOD SPECIMEN Performed By: #### 5 8410-2 ####[facility]ORYCLIA [id number] [address] Hemoglobin (Bld) [Mass/Vol] 12.2 g/dL Low 13.0-17.0 [facility] Comment on above: Order Comment: Speci men Type: BLOOD SPECIMEN Performed By: #### 5 8410-2 ####[facility]ATORYCLIA [id number] [address] MCH (RBC) [Entitic mass] 27.8 pg Normal 26.0-34.0 [facility] Comment on above: Order Comment: Speci men Type: BLOOD SPECIMEN Performed By: #### 5 8410-2 ####[facility]ORYCLIA [id number] [address] MCHC (RBC) [Mass/Vol] 30.9 g/dL Normal 30.5-36.0 [facility] Comment on above: Order Comment: Speci men Type: BLOOD SPECIMEN Performed By: #### 5 8410-2 ####[facility]ORYCLIA [id number] [address] MCV (RBC) [Entitic vol] 90.0 fL Normal 80.0-100.0 [facility] Comment on above: Order Comment: Speci men Type: BLOOD SPECIMEN Performed By: #### 5 8410-2 ####[facility]ORYCLIA [id number] [address] Nucleated RBC (Bld) [#/Vol] 10*3/uL Normal <0.01 [facility] Comment on above: Order Comment: Speci men Type: BLOOD SPECIMEN Performed By: #### 5 8410-2 ####[facility]ATORYCLIA [id number] [address] Platelet mean volume (Bld) [Entitic vol] 10.4 fL Normal 9.0-12.7 [facility] Comment on above: Order Comment: Speci men Type: BLOOD SPECIMEN Performed By: #### 5 8410-2 ####[facility]ATORYCLIA [id number] [address] [facility] Platelets (Bld) [#/Vol] 236 10*3/uL Normal 150-400 [facility] Comment on above: Order Comment: Speci men Type: BLOOD SPECIMEN Performed By: #### 5 8410-2 ####[facility]ORYCLIA [id number] [address] [facility] RBC (Bld) [#/Vol] 4.39 10*6/uL Normal 4.20-6.00 [facility] Comment on above: Order Comment: Speci men Type: BLOOD SPECIMEN Performed By: #### 5 8410-2 ####[facility]ORYCLIA [id number] [address] WBC (Bld) [#/Vol] 9.74 10*3/uL Normal 3.70-11.00 [facility] Comment on above: Order Comment: Speci men Type: BLOOD SPECIMEN Performed By: #### 5 8410-2 ####[facility]ORYCLIA [id number] [address] CONSULT PROGon 06-06-2021 CONSULT PROG Normal [facility] CONSULT PROG Normal [facility] Magnesium SerPl-mCncon 06-06 Magnesium [Mass/Vol] 2.5 mg/dL High 1.7-2.3 [facility] Comment on above: Order Comment: Speci men Type: BLOOD SPECIMEN Performed By: #### 2 4321-2, 41174-1, 2777-1 ####[facility]ATORYCLIA [id number] [address] PT panel Coag (PPP)on 2021 INR Coag (PPP) [Relative time] 1.0 {INR} Normal 0.9-1.3 [facility] Comment on above: Order Comment: Speci men Type: BLOOD SPECIMEN Result Comment: Yris min K Antagonist (VKA) Therapeutic Range: INR 2 to 3 (Target INR of 2.5)Note: For patients treated with VKA drugs, such as warfarin, the [place] [employer] 2012 Guideline recommends [...] al. Chest 2012, 141:7S-47SNishimura RA, et al. [facility] 2017, 70: 252-289 Performed By: #### 3 4528-0, 83129-7 ####[facility]ATORYCLIA [id number] [address] [facility] PT Coag (PPP) [Time] 11.4 s Normal 9.7-13.0 [facility] Comment on above: Order Comment: Speci men Type: BLOOD SPECIMEN Performed By: #### 3 4528-0, 32508-6 ####[facility]ATORYCLIA [id number] [address] [place] Phosphate SerPl-mCncon 06-06 Phosphate [Mass/Vol] 2.3 mg/dL Low 2.7-4.8 [facility] Comment on above: Order Comment: Speci men Type: BLOOD SPECIMEN Performed By: #### 2 4321-2, 20323-7, 2777-1 ####[facility]ATORYCLIA [id number] [address] [facility] THROMBOGRAPH HEPARINASE PANE [place] 06-06-2021 Clot angle after addition of heparinase TEG (Bld) [Angle] 70.2 degrees Normal 47.0-74.0 [facility] Comment on above: Order Comment: Speci men Type: BLOOD SPECIMEN Performed By: #### T EGHPP ####[facility]ATORYCLIA [id number] [address] Clot Lysis 30 Min post maximum clot amplitude TEG (Bld) [Length fraction] 0.0 % Normal 0.0-8.0 [facility] Comment on above: Order Comment: Speci men Type: BLOOD SPECIMEN Performed By: #### T EGHPP ####[facility]ATORYCLIA [id number] [address] Clotting time after addition of heparinase TEG (Bld) 5.7 minutes Normal 4.0-10.0 [facility] Comment on above: Order Comment: Speci men Type: BLOOD SPECIMEN Performed By: #### T EGHPP ####[facility] [id number] [address] Coagulation index TEG Qn (Bld) 1.2 Normal -4.6-3.2 [facility] Comment on above: Order Comment: Speci men Type: BLOOD SPECIMEN Result Comment: The Coagulation Index, a secondary parameter, is labeled by the pattern chart writer as for "research use only" and is used per the pattern chart writer's instructions. Its performance characteristics were determined by [facility]'s [facility] [place] in a manner consistent with CLIA requirements. This test has not been cleared by the U.S. Food and Drug Administration. Performed By: #### T EGHPP ####[facility]ATORYCLIA [id number] [address] Maximum clot firmness after addition of heparinase TEG (Bld) [Length] 64.0 mm Normal 51.0-75.0 [facility] Comment on above: Order Comment: Speci men Type: BLOOD SPECIMEN Performed By: #### T EGHPP ####[facility]ATORYCLIA [id number] [address] Vancomycin random [Mass/Vol] on 06-06-2021 Vancomycin [Mass/Vol] 17.4 ug/mL Normal 10.0-20.0 [facility] Comment on above: Order Comment: Speci men Type: BLOOD SPECIMEN Result Comment: Refe rence ranges and high/low indicator flags are provided as general guidelines only. The treating physician must determine appropriate target levels/dosing based on the specific clinical situation. Performed By: #### 4 091-5 ####[facility]ORATORYCLIA [id number] [address] STATES [facility] Vancomycin [Mass/Vol] 13.5 ug/mL Normal 10.0-20.0 [facility] Comment on above: Order Comment: Speci men Type: BLOOD SPECIMEN Result Comment: Refe rence ranges and high/low indicator flags are provided as general guidelines only. The treating physician must determine appropriate target levels/dosing based on the specific clinical situation. Performed By: #### 4 091-5 ####[facility]ORYCLIA [id number] [address] aPTT PPPon 06-06-2021 aPTT Coag (PPP) [Time] 27.8 s Normal 23.0-32.4 [facility] Comment on above: Order Comment: Speci men Type: BLOOD SPECIMEN Performed By: #### 3 4528-0, 96617-6 ####[facility]ATORYCLIA [id number] [address] Basic metabolic 2000 panelon 06-05-2021 Anion gap [Moles/Vol] 11 mmol/L Normal 9-18 [facility] Comment on above: Order Comment: Speci men Type: BLOOD SPECIMEN Performed By: #### 1 9123-9, 41446-2, 2776-05 ####[facility]ATORYCLIA [id number] [address] STATES [facility] Calcium [Mass/Vol] 8.6 mg/dL Normal 8.5-10.2 [facility] Comment on above: Order Comment: Speci men Type: BLOOD SPECIMEN Performed By: #### 1 9123-9, 91992-4, 2776-05 ####[facility]ORYCLIA [id number] [address] Chloride [Moles/Vol] 108 mmol/L High 97-105 [facility] Comment on above: Order Comment: Speci men Type: BLOOD SPECIMEN Performed By: #### 1 9123-9, 68750-3, 2776-05 ####[facility]ORATORYCLIA [id number] [place] [address] [place] CO2 [Moles/Vol] 25 mmol/L Normal 22-30 [facility] Comment on above: Order Comment: Speci men Type: BLOOD SPECIMEN Performed By: #### 1 9, , 2776-05 ####[facility]ATORYCLIA [id number] [address] [place] Creatinine [Mass/Vol] 0.77 mg/dL Normal 0.73-1.22 [facility] Comment on above: Order Comment: Speci men Type: BLOOD SPECIMEN Performed By: #### 1 239, , 2776-05 ####[facility]ATORYCLIA [id number] [address] [place] GFR/1.73 sq M.predicted [...] actual GFR. Performed By: #### 1 9123-9, 45970-3, 2776-05 ####[facility]ATORYCLIA [id number] [address] [place] Glucose [Mass/Vol] 96 mg/dL Normal 74-99 [facility] Comment on above: Order Comment: Speci men Type: BLOOD SPECIMEN Result Comment: The [place] Diabetes [employer] (ADA) provides guidance for cutoff [...] Standards of Medical Care in Diabetes 2016, [place] [employer]. Diabetes Care. 2016.39(Suppl 1). Performed By: #### 1 9123-9, 57123-0, 2776-05 ####[facility]ATORYCLIA [id number] [address] [place] [facility] Potassium [Moles/Vol] 3.9 mmol/L Normal 3.7-5.1 [facility] Comment on above: Order Comment: Speci men Type: BLOOD SPECIMEN Performed By: #### 1 23-9, 06874-6, 2776-05 ####[facility]ORYCLIA [id number] [address] Sodium [Moles/Vol] 144 mmol/L Normal 136-144 [facility] Comment on above: Order Comment: Speci men Type: BLOOD SPECIMEN Performed By: #### 1 23-9, , 2776-05 ####[facility]ORYCLIA [id number] [address] [place] Urea nitrogen [Mass/Vol] 26 mg/dL High 9-24 [facility] Comment on above: Order Comment: Speci men Type: BLOOD SPECIMEN Performed By: #### 1 9123-9, 20272-2, 2776-05 ####[facility]ORYCLIA [id number] [address] [facility] CBC panel Auto (Bld)on 06-05 Erythrocyte distribution width (RBC) [Ratio] 15.9 % High 11.5-15.0 [facility] Comment on above: Order Comment: Speci men Type: BLOOD SPECIMEN Performed By: #### 5 8410-2 ####[facility]ORYCLIA [id number] [address] Hematocrit (Bld) [Volume fraction] 39.6 % Normal 39.0-51.0 [facility] Comment on above: Order Comment: Speci men Type: BLOOD SPECIMEN Performed By: #### 5 8410-2 ####[facility]ORYCLIA [id number] [address] Hemoglobin (Bld) [Mass/Vol] 12.3 g/dL Low 13.0-17.0 [facility] Comment on above: Order Comment: Speci men Type: BLOOD SPECIMEN Performed By: #### 5 8410-2 ####[facility]ORYCLIA [id number] [address] MCH (RBC) [Entitic mass] 28.1 pg Normal 26.0-34.0 [facility] Comment on above: Order Comment: Speci men Type: BLOOD SPECIMEN Performed By: #### 5 8410-2 ####[facility]ORYCLIA [id number] [address] MCHC (RBC) [Mass/Vol] 31.1 g/dL Normal 30.5-36.0 [facility] Comment on above: Order Comment: Speci men Type: BLOOD SPECIMEN Performed By: #### 5 8410-2 ####[facility]ORYCLIA [id number] [address] MCV (RBC) [Entitic vol] 90.4 fL Normal 80.0-100.0 [facility] Comment on above: Order Comment: Speci men Type: BLOOD SPECIMEN Performed By: #### 5 8410-2 ####[facility]ORYCLIA [id number] [address] Nucleated RBC (Bld) [#/Vol] 10*3/uL Normal <0.01 [facility] Comment on above: Order Comment: Speci men Type: BLOOD SPECIMEN Performed By: #### 5 8410-2 ####[facility]ORYCLIA [id number] [address] Platelet mean volume (Bld) [Entitic vol] 10.5 fL Normal 9.0-12.7 [facility] Comment on above: Order Comment: Speci men Type: BLOOD SPECIMEN Performed By: #### 5 8410-2 ####[facility]ORYCLIA [id number] [address] Platelets (Bld) [#/Vol] 224 10*3/uL Normal 150-400 [facility] Comment on above: Order Comment: Speci men Type: BLOOD SPECIMEN Performed By: #### 5 8410-2 ####[facility]ORYCLIA [id number] [address] RBC (Bld) [#/Vol] 4.38 10*6/uL Normal 4.20-6.00 [facility] Comment on above: Order Comment: Speci men Type: BLOOD SPECIMEN Performed By: #### 5 8410-2 ####[facility]ORYCLIA [id number] [address] WBC (Bld) [#/Vol] 9.66 10*3/uL Normal 3.70-11.00 [facility] Comment on above: Order Comment: Speci men Type: BLOOD SPECIMEN Performed By: #### 5 8410-2 ####[facility]ORYCLIA [id number] [address] CONSULT PROGon 06-05-2021 CONSULT PROG Normal [facility] Gas and Carbon monoxide pane l (BldV)on 06-05-2021 Base excess Calc (BldV) [Moles/Vol] 1.8 mmol/L Normal 0-2 [facility] Comment on above: Order Comment: Speci men Type: VENOUS BLOOD SPECIMEN Performed By: #### 2 4344-4 ####[facility]CLIA [id number] [address] Body temperature 100.4 [degF] Normal [facility] Comment on above: Order Comment: Speci men Type: VENOUS BLOOD SPECIMEN Performed By: #### 2 4344-4 ####[facility]ORYCLIA [id number] [address] CALCIUM IONIZED, PH CORRECTED 1.21 mmol/L Normal 1.08-1.30 [facility] Comment on above: Order Comment: Speci men Type: VENOUS BLOOD SPECIMEN Performed By: #### 2 4344-4 ####[facility]ORYCLIA [id number] [address] Calcium.ionized (BldV) [Mass/Vol] 1.19 mmol/L Normal 1.08-1.30 [facility] Comment on above: Order Comment: Speci men Type: VENOUS BLOOD SPECIMEN Performed By: #### 2 4344-4 ####[facility]ORYCLIA [id number] [address] Carboxyhemoglobin (BldV) [Mass fraction] 1.0 % Normal 0.0-2.0 [facility] Comment on above: Order Comment: Speci men Type: VENOUS BLOOD SPECIMEN Result Comment: Carb oxyhemoglobin Reference Range for Smokers: 2.0-8.0% Performed By: #### 2 4344-4 ####[facility]ORYCLIA [id number] [address] CO2 (BldV) [Partial pressure] 41 mm[Hg] Low 42-55 [facility] Comment on above: Order Comment: Speci men Type: VENOUS BLOOD SPECIMEN Performed By: #### 2 4344-4 ####[facility]ORYCLIA [id number] [address] CO2 [Moles/Vol] 23.4 mmol/L Low 25-29 [facility] Comment on above: Order Comment: Speci men Type: VENOUS BLOOD SPECIMEN Performed By: #### 2 4344-4 ####[facility]ORATORYCLIA [id number] [address] CO2 adjusted to patient's actual temperature (BldV) [Partial pressure] 43 mmHg Normal 42-55 [facility] Comment on above: Order Comment: Speci men Type: VENOUS BLOOD SPECIMEN Performed By: #### 2 4344-4 ####[facility]ORYCLIA [id number] [address] Glucose [Mass/Vol] 101 mg/dL Normal 60-105 [facility] Comment on above: Order Comment: Speci men Type: VENOUS BLOOD SPECIMEN Performed By: #### 2 4344-4 ####[facility]ORYCLIA [id number] [address] HCO3 (Bld) [Moles/Vol] 26.0 mmol/L Normal 24-28 [facility] Comment on above: Order Comment: Speci men Type: VENOUS BLOOD SPECIMEN Performed By: #### 2 4344-4 ####[facility]ORATORYCLIA [id number] [address] Hematocrit (Bld) [Volume fraction] 38.4 % Low 39.0-51.0 [facility] Comment on above: Order Comment: Speci men Type: VENOUS BLOOD SPECIMEN Performed By: #### 2 4344-4 ####[facility]ATORYCLIA [id number] [address] Hemoglobin (Bld) [Mass/Vol] 12.5 g/dL Low 13.0-17.0 [facility] Comment on above: Order Comment: Speci men Type: VENOUS BLOOD SPECIMEN Performed By: #### 2 4344-4 ####[facility]ORYCLIA [id number] [address] [place] Methemoglobin (Bld) [Mass fraction] % Normal 0.0-1.5 [facility] Comment on above: Order Comment: Speci men Type: VENOUS BLOOD SPECIMEN Performed By: #### 2 4344-4 ####[facility]ATORYCLIA [id number] [place] [address] [facility] O2 THERAPY Ventilator Normal [facility] Comment on above: Order Comment: Speci men Type: VENOUS BLOOD SPECIMEN Performed By: #### 2 4344-4 ####[facility]ATORYCLIA [id number] [place] [address] [facility] Oxygen (BldV) [Partial pressure] 44 mm[Hg] Normal 35-45 [facility] Comment on above: Order Comment: Speci men Type: VENOUS BLOOD SPECIMEN Performed By: #### 2 4344-4 ####[facility]ORYCLIA [id number] [place], [place] [id number] [place] [address] Oxygen adjusted to patient's actual temperature (BldV) [Partial pressure] 46.8 mmHg High 35-45 [facility] Comment on above: Order Comment: Speci men Type: VENOUS BLOOD SPECIMEN Performed By: #### 2 4344-4 ####[facility]ORYCLIA [id number] [place], [place] [address] [place] [address] [place] Oxygen saturation in Blood 76.5 % Normal 60-85 [facility] Comment on above: Order Comment: Speci men Type: VENOUS BLOOD SPECIMEN Performed By: #### 2 4344-4 ####[facility]ORYCLIA [id number] [place], [place] [address] [place] [address] [place] Oxyhemoglobin (BldV) [Mass fraction] 75 % Normal 60-85 [facility] Comment on above: Order Comment: Speci men Type: VENOUS BLOOD SPECIMEN Performed By: #### 2 4344-4 ####[facility]ORYCLIA [id number] [place] [address] [facility] [place] pH (BldV) 7.42 [pH] Normal 7.32-7.42 [facility] Comment on above: Order Comment: Speci men Type: VENOUS BLOOD SPECIMEN Performed By: #### 2 4344-4 ####[facility]ORYCLIA [id number] [address] pH adjusted to patient's actual temperature (BldV) 7.40 Normal 7.32-7.42 [facility] Comment on above: Order Comment: Speci men Type: VENOUS BLOOD SPECIMEN Performed By: #### 2 4344-4 ####[facility]ORYCLIA [id number] [address] [place] Potassium [Moles/Vol] 3.7 mmol/L Normal 3.5-5.0 [facility] Comment on above: Order Comment: Speci men Type: VENOUS BLOOD SPECIMEN Performed By: #### 2 4344-4 ####[facility]ORYCLIA [id number] [address] STATES [facility] Sodium [Moles/Vol] 141 mmol/L Normal 136-144 [facility] Comment on above: Order Comment: Speci men Type: VENOUS BLOOD SPECIMEN Performed By: #### 2 4344-4 ####[facility]ORYCLIA [id number] [address] [place] Magnesium SerPl-mCncon 06-05 Magnesium [Mass/Vol] 2.3 mg/dL Normal 1.7-2.3 [facility] Comment on above: Order Comment: Speci men Type: BLOOD SPECIMEN Performed By: #### 1 9123-9, 47178-7, 2777-1 ####[facility]ORYCLIA [id number] [address] [place] Phosphate SerPl-mCncon 06-05 Phosphate [Mass/Vol] 2.9 mg/dL Normal 2.7-4.8 [facility] Comment on above: Order Comment: Speci men Type: BLOOD SPECIMEN Performed By: #### 1 9123-9, 37110-3, 2777-1 ####[facility]ORYCLIA [id number] [address] [place] Vancomycin random [Mass/Vol] on 06-05-2021 Vancomycin [Mass/Vol] 23.2 ug/mL High 10.0-20.0 [facility] Comment on above: Order Comment: Speci men Type: BLOOD SPECIMEN Result Comment: Refe rence ranges and high/low indicator flags are provided as general guidelines only. The treating physician must determine appropriate target levels/dosing based on the specific clinical situation. Performed By: #### 4 091-5 ####[facility]ATORYCLIA [id number] [place] [address] [place] (1,3)-D-R-QYJIYKkt 2 (1,3) B-D GLUCAN <31 Normal <60 [facility] Comment on above: Order Comment: Speci men Type: BLOOD SPECIMEN Performed By: #### B DGLUC ####[facility]FER[facility] LABCLIA [id number] [employer] [place] [address] [place] (1,3) B-D GLUCAN, QUAL Negative Normal NEGAT [facility] Comment on above: Order Comment: Speci men Type: BLOOD SPECIMEN Result Comment: Cert ain fungi, such as the genus Cryptococcus which produces very low levels of (1,3)-ksji-Y-npsflj, may not result in serum (1,3)-hvul-C-enlwgb sufficiently elevated so as to be detected by the assay. Infections with fungi of the order Mucorales such as Absidia, Mucor and Rhizopus which are not known to produce (1,3)-xmcw-X-umhlzd, are also observed to yield low serum (1,3)-ufqt-Q-yszvrw titers.In addition, the yeast phase of Blastomyces dermatitidis produces little (1,3)-amfq-F-rgaddf and may not be detected by the assay. Performed By: #### B DGLUC ####[facility] REFERENCE LABCLIA [id number] [employer]K [id number] [place] [id number] [place] ALLIED HEALTHon 06-04-2021 ALLIED HEALTH Normal [facility] ALLIED HEALTH Normal [facility] ARTERIAL BLOOD GASESon 06-04 Base excess Calc (Bld) [Moles/Vol] 3 mmol/L High 0-2 [facility] Comment on above: Order Comment: Speci men Type: ARTERIAL BLOOD SPECIMEN Performed By: #### A LLBG ####[facility]ORATORYCLIA [id number] [address] Body temperature 98.06 [degF] Normal [facility] Comment on above: Order Comment: Speci men Type: ARTERIAL BLOOD SPECIMEN Performed By: #### A LLBG ####[facility]ORATORYCLIA [id number] [address] CALCIUM IONIZED, PH CORRECTED 1.19 mmol/L Normal 1.08-1.30 [facility] Comment on above: Order Comment: Speci men Type: ARTERIAL BLOOD SPECIMEN Performed By: #### A LLBG ####[facility]ATORYCLIA [id number] [address] Calcium.ionized (BldV) [Mass/Vol] 1.14 mmol/L Normal 1.08-1.30 [facility] Comment on above: Order Comment: Speci men Type: ARTERIAL BLOOD SPECIMEN Performed By: #### A LLBG ####[facility]ORATORYCLIA [id number] [address] Carboxyhemoglobin (BldA) [Mass fraction] 1.2 % Normal 0.0-2.0 [facility] Comment on above: Order Comment: Speci men Type: ARTERIAL BLOOD SPECIMEN Result Comment: Carb oxyhemoglobin Reference Range for Smokers: 2.0-8.0% Performed By: #### A LLBG ####[facility]ORATORYCLIA [id number] [address] CO2 (Bld) [Partial pressure] 35 mm Hg Low 36-46 [facility] Comment on above: Order Comment: Speci men Type: ARTERIAL BLOOD SPECIMEN Performed By: #### A LLBG ####[facility]ATORYCLIA [id number] [address] CO2 [Moles/Vol] 23.2 mmol/L Normal 22-28 [facility] Comment on above: Order Comment: Speci men Type: ARTERIAL BLOOD SPECIMEN Performed By: #### A LLBG ####[facility]ORYCLIA [id number] [address] CO2 adjusted to patient's actual temperature (Bld) [Partial pressure] 34 mmHg Low 36-46 [facility] Comment on above: Order Comment: Speci men Type: ARTERIAL BLOOD SPECIMEN Performed By: #### A LLBG ####[facility]ORYCLIA [id number] [address] Glucose [Mass/Vol] 115 mg/dL High 60-105 [facility] Comment on above: Order Comment: Speci men Type: ARTERIAL BLOOD SPECIMEN Performed By: #### A LLBG ####[facility]ORYCLIA [id number] [address] HCO3 (Bld) [Moles/Vol] 26 mmol/L Normal 22-26 [facility] Comment on above: Order Comment: Speci men Type: ARTERIAL BLOOD SPECIMEN Performed By: #### A LLBG ####[facility]ORYCLIA [id number] [address] Hematocrit (Bld) [Volume fraction] 35.3 % Low 39.0-51.0 [facility] Comment on above: Order Comment: Speci men Type: ARTERIAL BLOOD SPECIMEN Performed By: #### A LLBG ####[facility]ORYCLIA [id number] [address] Hemoglobin (Bld) [Mass/Vol] 11.5 g/dL Low 13.0-17.0 [facility] Comment on above: Order Comment: Speci men Type: ARTERIAL BLOOD SPECIMEN Performed By: #### A LLBG ####[facility]ORYCLIA [id number] [address] Methemoglobin (Bld) [Mass fraction] % Normal 0.0-1.5 [facility] Comment on above: Order Comment: Speci men Type: ARTERIAL BLOOD SPECIMEN Performed By: #### A LLBG ####[facility]ORYCLIA [id number] [place], [place] [address] [place] [address] [place] O2 THERAPY Ventilator Normal [facility] Comment on above: Order Comment: Speci men Type: ARTERIAL BLOOD SPECIMEN Performed By: #### A LLBG ####[facility]ORYCLIA [id number] [place], [place] [id number] [place] [address] [place] Oxygen (Bld) [Partial pressure] 66 mm Hg Low 85-95 [facility] Comment on above: Order Comment: Speci men Type: ARTERIAL BLOOD SPECIMEN Performed By: #### A LLBG ####[facility]ORYCLIA [id number] [address] Oxygen adjusted to patient's actual temperature (Bld) [Partial pressure] 64.3 mmHg Low 85-95 [facility] Comment on above: Order Comment: Speci men Type: ARTERIAL BLOOD SPECIMEN Performed By: #### A LLBG ####[facility]ORYCLIA [id number] [address] OXYGEN SATURATION, ARTERIAL 95 % Normal 95-98 [facility] Comment on above: Order Comment: Speci men Type: ARTERIAL BLOOD SPECIMEN Performed By: #### A LLBG ####[facility]ORYCLIA [id number] [address] Oxyhemoglobin (BldA) [Mass fraction] 93 % Low 95-98 [facility] Comment on above: Order Comment: Speci men Type: ARTERIAL BLOOD SPECIMEN Performed By: #### A LLBG ####[facility]ORYCLIA [id number] [place], [place] [address] [place] [address] [place] pH (Bld) 7.49 [pH] High 7.35-7.45 [facility] Comment on above: Order Comment: Speci men Type: ARTERIAL BLOOD SPECIMEN Performed By: #### A LLBG ####[facility]ORYCLIA [id number] [address] [place] pH adjusted to patient's actual temperature (Bld) 7.49 High 7.35-7.45 [facility] Comment on above: Order Comment: Speci men Type: ARTERIAL BLOOD SPECIMEN Performed By: #### A LLBG ####[facility]ATORYCLIA [id number] [address] Potassium [Moles/Vol] 2.8 mmol/L Low 3.5-5.0 [facility] Comment on above: Order Comment: Speci men Type: ARTERIAL BLOOD SPECIMEN Performed By: #### A LLBG ####[facility]ATORYCLIA [id number] [address] Bas Metab 2000 Pnl SerPlon 0 06-04-2021 Sodium [Moles/Vol] 143 mmol/L Normal 136-144 [facility] Comment on above: Order Comment: Speci men Type: BLOOD SPECIMEN Performed By: #### 2 777-1, , ####[facility]ORYCLIA [id number] [address] Order Comment: Speci men Type: ARTERIAL BLOOD SPECIMEN Performed By: #### A LLBG ####[facility]ATORYCLIA [id number] [address] Basic metabolic 2000 panelon 06-04-2021 Anion gap [Moles/Vol] 11 mmol/L Normal 9-18 [facility] Comment on above: Order Comment: Speci men Type: BLOOD SPECIMEN Performed By: #### 2 777-1, , ####[facility]ORYCLIA [id number] [address] Calcium [Mass/Vol] 8.5 mg/dL Normal 8.5-10.2 [facility] Comment on above: Order Comment: Speci men Type: BLOOD SPECIMEN Performed By: #### 2 777-1, , ####[facility]ORYCLIA [id number] [address] OF [facility] Chloride [Moles/Vol] 107 mmol/L High 97-105 [facility] Comment on above: Order Comment: Speci men Type: BLOOD SPECIMEN Performed By: #### 2 777-1, , ####[facility]ORYCLIA [id number] [address] STATES OF [facility] CO2 [Moles/Vol] 25 mmol/L Normal 22-30 [facility] Comment on above: Order Comment: Speci men Type: BLOOD SPECIMEN Performed By: #### 2 777-1, , ####[facility]ORYCLIA [id number] [address] [place] Creatinine [Mass/Vol] 0.77 mg/dL Normal 0.73-1.22 [facility] Comment on above: Order Comment: Speci men Type: BLOOD SPECIMEN Performed By: #### 2 777-1, , ####[facility]ATORYCLIA [id number] [address] [place] GFR/1.73 sq M.predicted [...] GFR. Performed By: #### 2 777-1, , ####[facility]ATORYCLIA [id number] [address] [place] Glucose [Mass/Vol] 107 mg/dL High 74-99 [facility] Comment on above: Order Comment: Speci men Type: BLOOD SPECIMEN Result Comment: The [place] [employer] (ADA) provides guidance for cutoff [...] Standards of Medical Care in Diabetes 2016, [place] [employer]. Diabetes Care. 2016.39(Suppl 1). Performed By: #### 2 777-1, , ####[facility]ATORYCLIA [id number] [address] STATES [facility] Potassium [Moles/Vol] 3.1 mmol/L Low 3.7-5.1 [facility] Comment on above: Order Comment: Speci men Type: BLOOD SPECIMEN Performed By: #### 2 777-1, , ####[facility]ATORYCLIA [id number] [address] Urea nitrogen [Mass/Vol] 19 mg/dL Normal 9-24 [facility] Comment on above: Order Comment: Speci men Type: BLOOD SPECIMEN Performed By: #### 2 777-1, , ####[facility]ATORYCLIA [id number] [address] CBC panel Auto (Bld)on 06-04 Erythrocyte distribution width (RBC) [Ratio] 15.8 % High 11.5-15.0 [facility] Comment on above: Order Comment: Speci men Type: BLOOD SPECIMEN Performed By: #### 5 8410-2 ####[facility]ORYCLIA [id number] [address] Hematocrit (Bld) [Volume fraction] 36.9 % Low 39.0-51.0 [facility] Comment on above: Order Comment: Speci men Type: BLOOD SPECIMEN Performed By: #### 5 8410-2 ####[facility]ORYCLIA [id number] [address] Hemoglobin (Bld) [Mass/Vol] 11.2 g/dL Low 13.0-17.0 [facility] Comment on above: Order Comment: Speci men Type: BLOOD SPECIMEN Performed By: #### 5 8410-2 ####[facility]ORYCLIA [id number] [address] MCH (RBC) [Entitic mass] 27.3 pg Normal 26.0-34.0 [facility] Comment on above: Order Comment: Speci men Type: BLOOD SPECIMEN Performed By: #### 5 8410-2 ####[facility]ORYCLIA [id number] [address] MCHC (RBC) [Mass/Vol] 30.4 g/dL Low 30.5-36.0 [facility] Comment on above: Order Comment: Speci men Type: BLOOD SPECIMEN Performed By: #### 5 8410-2 ####[facility]ORYCLIA [id number] [address] MCV (RBC) [Entitic vol] 89.8 fL Normal 80.0-100.0 [facility] Comment on above: Order Comment: Speci men Type: BLOOD SPECIMEN Performed By: #### 5 8410-2 ####[facility]ORYCLIA [id number] [address] Nucleated RBC (Bld) [#/Vol] 10*3/uL Normal <0.01 [facility] Comment on above: Order Comment: Speci men Type: BLOOD SPECIMEN Performed By: #### 5 8410-2 ####[facility]ORYCLIA [id number] [address] Platelet mean volume (Bld) [Entitic vol] 10.7 fL Normal 9.0-12.7 [facility] Comment on above: Order Comment: Speci men Type: BLOOD SPECIMEN Performed By: #### 5 8410-2 ####[facility]ORYCLIA [id number] [address] Platelets (Bld) [#/Vol] 174 10*3/uL Normal 150-400 [facility] Comment on above: Order Comment: Speci men Type: BLOOD SPECIMEN Performed By: #### 5 8410-2 ####[facility]ORYCLIA [id number] [address] [place] [facility] RBC (Bld) [#/Vol] 4.11 10*6/uL Low 4.20-6.00 [facility] Comment on above: Order Comment: Speci men Type: BLOOD SPECIMEN Performed By: #### 5 8410-2 ####[facility]ORYCLIA [id number] [address] WBC (Bld) [#/Vol] 8.29 10*3/uL Normal 3.70-11.00 [facility] Comment on above: Order Comment: Speci men Type: BLOOD SPECIMEN Performed By: #### 5 8410-2 ####[facility]ORYCLIA [id number] [address] CONSULT PROGon 06-04-2021 CONSULT PROG Normal [facility] CT BRAIN WO IVCONon 06-04-19 CT BRAIN WO IVCON Normal [facility] CT CHEST W IVCON PEon 2021 CT CHEST W IVCON PE Normal [facility] Magnesium SerPl-mCncon 06-04 Magnesium [Mass/Vol] 2.2 mg/dL Normal 1.7-2.3 [facility] Comment on above: Order Comment: Speci men Type: BLOOD SPECIMEN Performed By: #### 2 777-1, 72858-0, 32292-3 ####[facility]ORYCLIA [id number] [address] NT-proBNP SerPl-mCncon 06-04 Natriuretic peptide.B prohormone N-Terminal [Mass/Vol] 229 pg/mL High <125 [facility] Comment on above: Order Comment: Speci men Type: BLOOD SPECIMEN Performed By: #### 3 3762-6, 4091-5 ####[facility]ORYCLIA [id number] [address] STATES [facility] Phosphate SerPl-mCncon 06-04 Phosphate [Mass/Vol] 2.0 mg/dL Low 2.7-4.8 [facility] Comment on above: Order Comment: Speci men Type: BLOOD SPECIMEN Performed By: #### 2 777-1, 53746-1, 62671-3 ####[facility]ORYCLIA [id number] [address] Vancomycin random [Mass/Vol] on 06-04-2021 Vancomycin [Mass/Vol] 35.2 ug/mL High 10.0-20.0 [facility] Comment on above: Order Comment: Speci men Type: BLOOD SPECIMEN Result Comment: Refe rence ranges and high/low indicator flags are provided as general guidelines only. The treating physician must determine appropriate target levels/dosing based on the specific clinical situation. Performed By: #### 3 3762-6, 4091-5 ####[facility]ORYCLIA [id number] [address] [facility] XR ABDOMEN 1V SUPINEon 06-04 XR ABDOMEN 1V SUPINE Normal [facility] ALLIED HEALTHon 06-03-2021 ALLIED HEALTH Normal [facility] ARTERIAL BLOOD GASESon 06-03 Base excess Calc (Bld) [Moles/Vol] 5 mmol/L High 0-2 [facility] Comment on above: Order Comment: Speci men Type: ARTERIAL BLOOD SPECIMEN Performed By: #### A LLBG ####[facility]ORYCLIA [id number] [address] Body temperature 99.5 [degF] Normal [facility] Comment on above: Order Comment: Speci men Type: ARTERIAL BLOOD SPECIMEN Performed By: #### A LLBG ####[facility]ORYCLIA [id number] [address] CALCIUM IONIZED, PH CORRECTED 1.18 mmol/L Normal 1.08-1.30 [facility] Comment on above: Order Comment: Speci men Type: ARTERIAL BLOOD SPECIMEN Performed By: #### A LLBG ####[facility]ORYCLIA [id number] [address] Calcium.ionized (BldV) [Mass/Vol] 1.16 mmol/L Normal 1.08-1.30 [facility] Comment on above: Order Comment: Speci men Type: ARTERIAL BLOOD SPECIMEN Performed By: #### A LLBG ####[facility]ORYCLIA [id number] [address] Carboxyhemoglobin (BldA) [Mass fraction] 1.2 % Normal 0.0-2.0 [facility] Comment on above: Order Comment: Speci men Type: ARTERIAL BLOOD SPECIMEN Result Comment: Carb oxyhemoglobin Reference Range for Smokers: 2.0-8.0% Performed By: #### A LLBG ####[facility]ATORYCLIA [id number] [address] CO2 (Bld) [Partial pressure] 45 mm Hg Normal 36-46 [facility] Comment on above: Order Comment: Speci men Type: ARTERIAL BLOOD SPECIMEN Performed By: #### A LLBG ####[facility]ORYCLIA [id number] [address] CO2 [Moles/Vol] 26.9 mmol/L Normal 22-28 [facility] Comment on above: Order Comment: Speci men Type: ARTERIAL BLOOD SPECIMEN Performed By: #### A LLBG ####[facility]ORYCLIA [id number] [address] CO2 adjusted to patient's actual temperature (Bld) [Partial pressure] 47 mmHg High 36-46 [facility] Comment on above: Order Comment: Speci men Type: ARTERIAL BLOOD SPECIMEN Performed By: #### A LLBG ####[facility]ORYCLIA [id number] [address] Glucose [Mass/Vol] 141 mg/dL High 60-105 [facility] Comment on above: Order Comment: Speci men Type: ARTERIAL BLOOD SPECIMEN Performed By: #### A LLBG ####[facility]ORYCLIA [id number] [address] HCO3 (Bld) [Moles/Vol] 30 mmol/L High 22-26 [facility] Comment on above: Order Comment: Speci men Type: ARTERIAL BLOOD SPECIMEN Performed By: #### A LLBG ####[facility]ORYCLIA [id number] [address] Hematocrit (Bld) [Volume fraction] 35.8 % Low 39.0-51.0 [facility] Comment on above: Order Comment: Speci men Type: ARTERIAL BLOOD SPECIMEN Performed By: #### A LLBG ####[facility]ORYCLIA [id number] [address] Hemoglobin (Bld) [Mass/Vol] 11.6 g/dL Low 13.0-17.0 [facility] Comment on above: Order Comment: Speci men Type: ARTERIAL BLOOD SPECIMEN Performed By: #### A LLBG ####[facility]ORYCLIA [id number] [address] Methemoglobin (Bld) [Mass fraction] % Normal 0.0-1.5 [facility] Comment on above: Order Comment: Speci men Type: ARTERIAL BLOOD SPECIMEN Performed By: #### A LLBG ####[facility]ORYCLIA [id number] [address] O2 THERAPY Ventilator Normal [facility] Comment on above: Order Comment: Speci men Type: ARTERIAL BLOOD SPECIMEN Performed By: #### A LLBG ####[facility]ORYCLIA [id number] [place], [place] [id number] [place] [address] [facility] Oxygen (Bld) [Partial pressure] 69 mm Hg Low 85-95 [facility] Comment on above: Order Comment: Speci men Type: ARTERIAL BLOOD SPECIMEN Performed By: #### A LLBG ####[facility]ORYCLIA [id number] [place], [place] [id number] [place] [address] Oxygen adjusted to patient's actual temperature (Bld) [Partial pressure] 70.8 mmHg Low 85-95 [facility] Comment on above: Order Comment: Speci men Type: ARTERIAL BLOOD SPECIMEN Performed By: #### A LLBG ####[facility]ORYCLIA [id number] [address] OXYGEN SATURATION, ARTERIAL 94 % Low 95-98 [facility] Comment on above: Order Comment: Speci men Type: ARTERIAL BLOOD SPECIMEN Performed By: #### A LLBG ####[facility]ORYCLIA [id number] [address] Oxyhemoglobin (BldA) [Mass fraction] 93 % Low 95-98 [facility] Comment on above: Order Comment: Speci men Type: ARTERIAL BLOOD SPECIMEN Performed By: #### A LLBG ####[facility] LABORATORYCLIA [id number] [address] [place] pH (Bld) 7.43 [pH] Normal 7.35-7.45 [facility] Comment on above: Order Comment: Speci men Type: ARTERIAL BLOOD SPECIMEN Performed By: #### A LLBG ####[facility]ORYCLIA [id number] [address] [facility] pH adjusted to patient's actual temperature (Bld) 7.43 Normal 7.35-7.45 [facility] Comment on above: Order Comment: Speci men Type: ARTERIAL BLOOD SPECIMEN Performed By: #### A LLBG ####[facility]ORYCLIA [id number] [address] Potassium [Moles/Vol] 3.1 mmol/L Low 3.5-5.0 [facility] Comment on above: Order Comment: Speci men Type: ARTERIAL BLOOD SPECIMEN Performed By: #### A LLBG ####[facility]ORYCLIA [id number] [address] [place] Sodium [Moles/Vol] 145 mmol/L High 136-144 [facility] [facility] Comment on above: Order Comment: Speci men Type: ARTERIAL BLOOD SPECIMEN Performed By: #### A LLBG ####[facility]ORYCLIA [id number] [address] [place] ASPERGILLUS GALACTOMANNAN SE RUMon 06-03-2021 Galactomannan Ag IA Ql Negative Normal NEGAT [facility] Comment on above: Order Comment: [...] is suspected. Performed By: #### A SGALS ####[facility] REFERENCE LABCLIA [id number] [facility] [address] [place] Galactomannan Ag IA Qn <0.50 Normal [facility] Comment on above: Order Comment: Speci men Type: BLOOD SPECIMEN Result Comment: Inde x Values are Interpreted as Follows:Negative specimens <0.50Positive specimens >=0.50 Performed By: #### A SGALS ####[facility] REFERENCE LABCLIA [id number] [place] AVEDESK [address] [address] [place] Basic metabolic 2000 panelon 06-03-2021 Anion gap [Moles/Vol] 8 mmol/L Low 9-18 [facility] Comment on above: Order Comment: Speci men Type: BLOOD SPECIMEN Performed By: #### 1 9123-9, 2777-1, 29271-7 ####[facility]ORYCLIA [id number] [address] Calcium [Mass/Vol] 8.0 mg/dL Low 8.5-10.2 [facility] Comment on above: Order Comment: Speci men Type: BLOOD SPECIMEN Performed By: #### 1 9123-9, 2777-1, 84906-4 ####[facility]ORYCLIA [id number] [address] [facility] Chloride [Moles/Vol] 110 mmol/L High 97-105 [facility] Comment on above: Order Comment: Speci men Type: BLOOD SPECIMEN Performed By: #### 1 9123-9, 2777-, 82628-8 ####[facility]ORYCLIA [id number] [address] CO2 [Moles/Vol] 28 mmol/L Normal 22-30 [facility] Comment on above: Order Comment: Speci men Type: BLOOD SPECIMEN Performed By: #### 1 9123-9, 2777, 23853-7 ####[facility]ORYCLIA [id number] [address] [facility] Creatinine [Mass/Vol] 0.75 mg/dL Normal 0.73-1.22 [facility] Comment on above: Order Comment: Speci men Type: BLOOD SPECIMEN Performed By: #### 1 9123-9, 2777-, 43249-9 ####[facility]ORYCLIA [id number] [address] [place] GFR/1.73 sq M.predicted [...] GFR. Performed By: #### 1 9123-9, 2776-, 59915-6 ####[facility]ORYCLIA [id number] [place] [address] [place] Glucose [Mass/Vol] 141 mg/dL High 74-99 [facility] Comment on above: Order Comment: Speci men Type: BLOOD SPECIMEN Result Comment: The [place] Diabetes Association (ADA) provides guidance for cutoff [...] Standards of Medical Care in Diabetes 2016, [place] Diabetes [employer]. Diabetes Care. 2016.39(Suppl 1). Performed By: #### 1 9123-9, 2776-05, 41977-7 ####[facility]ORYCLIA [id number] [place] [address] [place] Potassium [Moles/Vol] 3.3 mmol/L Low 3.7-5.1 [facility] Comment on above: Order Comment: Speci men Type: BLOOD SPECIMEN Performed By: #### 1 9123-9, 2776-05, 78945-4 ####[facility]ORYCLIA [id number] [address] [place] Sodium [Moles/Vol] 146 mmol/L High 136-144 [facility] Comment on above: Order Comment: Speci men Type: BLOOD SPECIMEN Performed By: #### 1 9123-9, 27711-04, 78461-6 ####[facility]ORYCLIA [id number] [address] STATES [facility] Urea nitrogen [Mass/Vol] 10 mg/dL Normal 9-24 [facility] Comment on above: Order Comment: Speci men Type: BLOOD SPECIMEN Performed By: #### 1 9123-9, 2777-1, 91715-4 ####[facility]ORYCLIA [id number] [address] [facility] CASE MANAGEMon 06-03-2021 CASE MANAGEM Normal [facility] CBC panel Auto (Bld)on 06-03 Erythrocyte distribution width (RBC) [Ratio] 15.6 % High 11.5-15.0 [facility] Comment on above: Order Comment: Speci men Type: BLOOD SPECIMEN Performed By: #### 5 8410-2 ####[facility]ORYCLIA [id number] [address] Hematocrit (Bld) [Volume fraction] 36.9 % Low 39.0-51.0 [facility] Comment on above: Order Comment: Speci men Type: BLOOD SPECIMEN Performed By: #### 5 8410-2 ####[facility]ORYCLIA [id number] [address] Hemoglobin (Bld) [Mass/Vol] 11.1 g/dL Low 13.0-17.0 [facility] Comment on above: Order Comment: Speci men Type: BLOOD SPECIMEN Performed By: #### 5 8410-2 ####[facility]ORYCLIA [id number] [address] MCH (RBC) [Entitic mass] 27.0 pg Normal 26.0-34.0 [facility] Comment on above: Order Comment: Speci men Type: BLOOD SPECIMEN Performed By: #### 5 8410-2 ####[facility]ORYCLIA [id number] [address] STATES [facility] MCHC (RBC) [Mass/Vol] 30.1 g/dL Low 30.5-36.0 [facility] Comment on above: Order Comment: Speci men Type: BLOOD SPECIMEN Performed By: #### 5 8410-2 ####[facility]ORYCLIA [id number] [address] MCV (RBC) [Entitic vol] 89.8 fL Normal 80.0-100.0 [facility] Comment on above: Order Comment: Speci men Type: BLOOD SPECIMEN Performed By: #### 5 8410-2 ####[facility]ORYCLIA [id number] [address] Nucleated RBC (Bld) [#/Vol] 10*3/uL Normal <0.01 [facility] Comment on above: Order Comment: Speci men Type: BLOOD SPECIMEN Performed By: #### 5 8410-2 ####[facility]ORYCLIA [id number] [address] Platelet mean volume (Bld) [Entitic vol] 10.5 fL Normal 9.0-12.7 [facility] Comment on above: Order Comment: Speci men Type: BLOOD SPECIMEN Performed By: #### 5 8410-2 ####[facility]ORYCLIA [id number] [address] Platelets (Bld) [#/Vol] 196 10*3/uL Normal 150-400 [facility] Comment on above: Order Comment: Speci men Type: BLOOD SPECIMEN Performed By: #### 5 8410-2 ####[facility]ORYCLIA [id number] [address] RBC (Bld) [#/Vol] 4.11 10*6/uL Low 4.20-6.00 [facility] Comment on above: Order Comment: Speci men Type: BLOOD SPECIMEN Performed By: #### 5 8410-2 ####[facility]ORYCLIA [id number] [address] WBC (Bld) [#/Vol] 8.18 10*3/uL Normal 3.70-11.00 [facility] Comment on above: Order Comment: Speci men Type: BLOOD SPECIMEN Performed By: #### 5 8410-2 ####[facility]ORYCLIA [id number] [address] [place] CONSULTon 06-03-2021 CONSULT Normal [facility] CONSULT PROGon 06-03-2021 CONSULT PROG Normal [facility] Gas and Carbon monoxide pane l (BldV)on 06-03-2021 Base excess Calc (BldV) [Moles/Vol] 1.4 mmol/L Normal 0-2 [facility] Comment on above: Order Comment: Speci men Type: VENOUS BLOOD SPECIMEN Performed By: #### 2 4344-4 ####[facility]ORYCLIA [id number] [address] Body temperature 98.42 [degF] Normal [facility] Comment on above: Order Comment: Speci men Type: VENOUS BLOOD SPECIMEN Performed By: #### 2 4344-4 ####[facility]ORYCLIA [id number] [address] STATES [facility] CALCIUM IONIZED, PH CORRECTED 1.09 mmol/L Normal 1.08-1.30 [facility] Comment on above: Order Comment: Speci men Type: VENOUS BLOOD SPECIMEN Performed By: #### 2 4344-4 ####[facility]ORYCLIA [id number] [address] [place] Calcium.ionized (BldV) [Mass/Vol] 1.12 mmol/L Normal 1.08-1.30 [facility] Comment on above: Order Comment: Speci men Type: VENOUS BLOOD SPECIMEN Performed By: #### 2 4344-4 ####[facility]ORYCLIA [id number] [address] Carboxyhemoglobin (BldV) [Mass fraction] 1.7 % Normal 0.0-2.0 [facility] Comment on above: Order Comment: Speci men Type: VENOUS BLOOD SPECIMEN Result Comment: Carb oxyhemoglobin Reference Range for Smokers: 2.0-8.0% Performed By: #### 2 4344-4 ####[facility]ORATORYCLIA [id number] [place], [place] [address] [place] [address] CO2 (BldV) [Partial pressure] 50 mm[Hg] Normal 42-55 [facility] Comment on above: Order Comment: Speci men Type: VENOUS BLOOD SPECIMEN Performed By: #### 2 4344-4 ####[facility]ATORYCLIA [id number] [place], [place] [address] [place] [address] CO2 [Moles/Vol] 24.9 mmol/L Low 25-29 [facility] Comment on above: Order Comment: Speci men Type: VENOUS BLOOD SPECIMEN Performed By: #### 2 4344-4 ####[facility]ATORYCLIA [id number] [address] CO2 adjusted to patient's actual temperature (BldV) [Partial pressure] 50 mmHg Normal 42-55 [facility] Comment on above: Order Comment: Speci men Type: VENOUS BLOOD SPECIMEN Performed By: #### 2 4344-4 ####[facility]ORYCLIA [id number] [address] FIO2 30 % Normal [facility] Comment on above: Order Comment: Speci men Type: VENOUS BLOOD SPECIMEN Performed By: #### 2 4344-4 ####[facility]ORYCLIA [id number] [address] Glucose [Mass/Vol] 191 mg/dL High 60-105 [facility] Comment on above: Order Comment: Speci men Type: VENOUS BLOOD SPECIMEN Performed By: #### 2 4344-4 ####[facility]ORYCLIA [id number] [address] HCO3 (Bld) [Moles/Vol] 27.1 mmol/L Normal 24-28 [facility] Comment on above: Order Comment: Speci men Type: VENOUS BLOOD SPECIMEN Performed By: #### 2 4344-4 ####[facility]ORYCLIA [id number] [address] Hematocrit (Bld) [Volume fraction] 36.2 % Low 39.0-51.0 [facility] Comment on above: Order Comment: Speci men Type: VENOUS BLOOD SPECIMEN Performed By: #### 2 4344-4 ####[facility]ORYCLIA [id number] [address] [place] Hemoglobin (Bld) [Mass/Vol] 11.8 g/dL Low 13.0-17.0 [facility] Comment on above: Order Comment: Speci men Type: VENOUS BLOOD SPECIMEN Performed By: #### 2 4344-4 ####[facility]ORYCLIA [id number] [address] INHALED TIDAL VOLUME (ML) 530 Normal [facility] Comment on above: Order Comment: Speci men Type: VENOUS BLOOD SPECIMEN Performed By: #### 2 4344-4 ####[facility]ORYCLIA [id number] [address] Methemoglobin (Bld) [Mass fraction] % Normal 0.0-1.5 [facility] Comment on above: Order Comment: Speci men Type: VENOUS BLOOD SPECIMEN Performed By: #### 2 4344-4 ####[facility]ORYCLIA [id number] [address] [place] O2 THERAPY Ventilator Normal [facility] Comment on above: Order Comment: Speci men Type: VENOUS BLOOD SPECIMEN Performed By: #### 2 4344-4 ####[facility]ORYCLIA [id number] [address] [place] Oxygen (BldV) [Partial pressure] 69 mm[Hg] High 35-45 [facility] Comment on above: Order Comment: Speci men Type: VENOUS BLOOD SPECIMEN Performed By: #### 2 4344-4 ####[facility]ORYCLIA [id number] [address] [place] Oxygen adjusted to patient's actual temperature (BldV) [Partial pressure] 68.8 mmHg High 35-45 [facility] Comment on above: Order Comment: Speci men Type: VENOUS BLOOD SPECIMEN Performed By: #### 2 4344-4 ####[facility]ORATORYCLIA [id number] [place], [place] [address] [place] [address] Oxygen saturation in Blood 92.4 % High 60-85 [facility] Comment on above: Order Comment: Speci men Type: VENOUS BLOOD SPECIMEN Performed By: #### 2 4344-4 ####[facility]ORYCLIA [id number] [address] Oxyhemoglobin (BldV) [Mass fraction] 90 % High 60-85 [facility] Comment on above: Order Comment: Speci men Type: VENOUS BLOOD SPECIMEN Performed By: #### 2 4344-4 ####[facility]ATORYCLIA [id number] [address] PEEP/CPAP 8 cmH2O Normal [facility] Comment on above: Order Comment: Speci men Type: VENOUS BLOOD SPECIMEN Performed By: #### 2 4344-4 ####[facility]ATORYCLIA [id number] [address] [facility] pH (BldV) 7.35 [pH] Normal 7.32-7.42 [facility] Comment on above: Order Comment: Speci men Type: VENOUS BLOOD SPECIMEN Performed By: #### 2 4344-4 ####[facility]ORYCLIA [id number] [address] pH adjusted to patient's actual temperature (BldV) 7.35 Normal 7.32-7.42 [facility] Comment on above: Order Comment: Speci men Type: VENOUS BLOOD SPECIMEN Performed By: #### 2 4344-4 ####[facility]ORYCLIA [id number] [address] Potassium [Moles/Vol] 3.6 mmol/L Normal 3.5-5.0 [facility] Comment on above: Order Comment: Speci men Type: VENOUS BLOOD SPECIMEN Performed By: #### 2 4344-4 ####[facility]ATORYCLIA [id number] [address] SET VENTILATOR RESPIRATORY RATE (BPM) 18 BPM Normal [facility] Comment on above: Order Comment: Speci men Type: VENOUS BLOOD SPECIMEN Performed By: #### 2 4344-4 ####[facility]ATORYCLIA [id number] [address] STATES [facility] Sodium [Moles/Vol] 141 mmol/L Normal 136-144 [facility] Comment on above: Order Comment: Speci men Type: VENOUS BLOOD SPECIMEN Performed By: #### 2 4344-4 ####[facility]ATORYCLIA [id number] [address] HIV 1+2 Ab IA Qlon 2 HIV 1 and 2 Ab IA.rapid Nom Normal [facility] Comment on above: Order Comment: Speci men Type: BLOOD SPECIMEN Result Comment: Test not indicated. Performed By: #### 3 1201-7, TOXMG ####[facility]ATORYCLIA [id number] [address] HIV 1+2 Ab+HIV1 p24 Ag IA [...] diagnoses. Performed By: #### 3 1201-7, TOXMG ####[facility]ATORYCLIA [id number] [address] [place] HIVINT Normal [facility] Comment on above: Order Comment: Speci men Type: BLOOD SPECIMEN Result Comment: No e vidence of HIV-1 or HIV-2 infection. Should recent infection be suspected, repeat testing may be considered 2-3 weeks after this draw. Performed By: #### 3 1201-7, TOXMG ####[facility]ATORYCLIA [id number] [address] Magnesium SerPl-mCncon 06-03 Magnesium [Mass/Vol] 1.9 mg/dL Normal 1.7-2.3 [facility] Comment on above: Order Comment: Speci men Type: BLOOD SPECIMEN Performed By: #### 1 9123-9, 2777-1, 24914-1 ####[facility]ATORYCLIA [id number] [address] NUTRITIONon 06-03-2021 NUTRITION Normal [facility] Phosphate SerPl-mCncon 06-03 Phosphate [Mass/Vol] 1.9 mg/dL Low 2.7-4.8 [facility] Comment on above: Order Comment: Speci men Type: BLOOD SPECIMEN Performed By: #### 1 9123-9, 2777-1, 54060-2 ####[facility]ORYCLIA [id number] [address] TOXOPLASMOSIS IGM AND IGG AB on [...] IU/mL Performed By: #### 3 1201-7, TOXMG ####[facility]ATORYCLIA [id number] [address] TOXO IGM QUAL Negative Normal Negative [facility] Comment on above: Order Comment: Speci men Type: BLOOD SPECIMEN Result Comment: No s erological evidence of recent exposure to Toxoplasma gondii.Negative <0.9 IndexEquivocal 0.9-0.99 IndexPositive >=1.0 Index Performed By: #### 3 1201-7, TOXMG ####[facility]ATORYCLIA [id number] [address] [place] US DVT LOWER [...] BLOOD SPECIMEN Performed By: #### A LLBG ####[facility]ORATORYCLIA [id number] [address] Body temperature 99.32 [degF] Normal [facility] Comment on above: Order Comment: Speci men Type: ARTERIAL BLOOD SPECIMEN Performed By: #### A LLBG ####[facility]ATORYCLIA [id number] [address] STATES [facility] CALCIUM IONIZED, PH CORRECTED 1.15 mmol/L Normal 1.08-1.30 [facility] Comment on above: Order Comment: Speci men Type: ARTERIAL BLOOD SPECIMEN Performed By: #### A LLBG ####[facility]ATORYCLIA [id number] [address] [facility] Calcium.ionized (BldV) [Mass/Vol] 1.13 mmol/L Normal 1.08-1.30 [facility] Comment on above: Order Comment: Speci men Type: ARTERIAL BLOOD SPECIMEN Performed By: #### A LLBG ####[facility]ATORYCLIA [id number] [address] [place] Carboxyhemoglobin (BldA) [Mass fraction] 1.4 % Normal 0.0-2.0 [facility] Comment on above: Order Comment: Speci men Type: ARTERIAL BLOOD SPECIMEN Result Comment: Carb oxyhemoglobin Reference Range for Smokers: 2.0-8.0% Performed By: #### A LLBG ####[facility]ORYCLIA [id number] [address] CO2 (Bld) [Partial pressure] 39 mm Hg Normal 36-46 [facility] Comment on above: Order Comment: Speci men Type: ARTERIAL BLOOD SPECIMEN Performed By: #### A LLBG ####[facility]ORYCLIA [id number] [address] [facility] CO2 [Moles/Vol] 23.4 mmol/L Normal 22-28 [facility] Comment on above: Order Comment: Speci men Type: ARTERIAL BLOOD SPECIMEN Performed By: #### A LLBG ####[facility]ORYCLIA [id number] [address] CO2 adjusted to patient's actual temperature (Bld) [Partial pressure] 40 mmHg Normal 36-46 [facility] Comment on above: Order Comment: Speci men Type: ARTERIAL BLOOD SPECIMEN Performed By: #### A LLBG ####[facility]ORYCLIA [id number] [address] Glucose [Mass/Vol] 156 mg/dL High 60-105 [facility] Comment on above: Order Comment: Speci men Type: ARTERIAL BLOOD SPECIMEN Performed By: #### A LLBG ####[facility]ORYCLIA [id number] [address] [place] HCO3 (Bld) [Moles/Vol] 26 mmol/L Normal 22-26 [facility] Comment on above: Order Comment: Speci men Type: ARTERIAL BLOOD SPECIMEN Performed By: #### A LLBG ####[facility]ORYCLIA [id number] [address] [place] Hematocrit (Bld) [Volume fraction] 33.9 % Low 39.0-51.0 [facility] Comment on above: Order Comment: Speci men Type: ARTERIAL BLOOD SPECIMEN Performed By: #### A LLBG ####[facility]ORYCLIA [id number] [address] [place] Hemoglobin (Bld) [Mass/Vol] 11.0 g/dL Low 13.0-17.0 [facility] Comment on above: Order Comment: Speci men Type: ARTERIAL BLOOD SPECIMEN Performed By: #### A LLBG ####[facility]ORYCLIA [id number] [address] Methemoglobin (Bld) [Mass fraction] % Normal 0.0-1.5 [facility] Comment on above: Order Comment: Speci men Type: ARTERIAL BLOOD SPECIMEN Performed By: #### A LLBG ####[facility]ORYCLIA [id number] [address] [place] O2 THERAPY Ventilator Normal [facility] Comment on above: Order Comment: Speci men Type: ARTERIAL BLOOD SPECIMEN Performed By: #### A LLBG ####[facility]ORYCLIA [id number] [address] Oxygen (Bld) [Partial pressure] 70 mm Hg Low 85-95 [facility] Comment on above: Order Comment: Speci men Type: ARTERIAL BLOOD SPECIMEN Performed By: #### A LLBG ####[facility]ORYCLIA [id number] [address] Oxygen adjusted to patient's actual temperature (Bld) [Partial pressure] 72.2 mmHg Low 85-95 [facility] Comment on above: Order Comment: Speci men Type: ARTERIAL BLOOD SPECIMEN Performed By: #### A LLBG ####[facility]ORYCLIA [id number] [address] OXYGEN SATURATION, ARTERIAL 96 % Normal 95-98 [facility] Comment on above: Order Comment: Speci men Type: ARTERIAL BLOOD SPECIMEN Performed By: #### A LLBG ####[facility]ORYCLIA [id number] [address] Oxyhemoglobin (BldA) [Mass fraction] 94 % Low 95-98 [facility] Comment on above: Order Comment: Speci men Type: ARTERIAL BLOOD SPECIMEN Performed By: #### A LLBG ####[facility]ORYCLIA [id number] [address] pH (Bld) 7.43 [pH] Normal 7.35-7.45 [facility] Comment on above: Order Comment: Speci men Type: ARTERIAL BLOOD SPECIMEN Performed By: #### A LLBG ####[facility]ORYCLIA [id number] [address] pH adjusted to patient's actual temperature (Bld) 7.42 Normal 7.35-7.45 [facility] Comment on above: Order Comment: Speci men Type: ARTERIAL BLOOD SPECIMEN Performed By: #### A LLBG ####[facility]ORYCLIA [id number] [address] Potassium [Moles/Vol] 2.6 mmol/L Low 3.5-5.0 [facility] Comment on above: Order Comment: Speci men Type: ARTERIAL BLOOD SPECIMEN Performed By: #### A LLBG ####[facility]ORYCLIA [id number] [address] Sodium [Moles/Vol] 142 mmol/L Normal 136-144 [facility] Comment on above: Order Comment: Speci men Type: ARTERIAL BLOOD SPECIMEN Performed By: #### A LLBG ####[facility]ORYCLIA [id number] [address] [place] Ammonia Plas-sCncon 06-02-19 22 Ammonia (P) [Moles/Vol] 20 umol/L Normal 16-60 [facility] Comment on above: Order Comment: Speci men Type: BLOOD SPECIMEN Performed By: #### 1 6362-6 ####[facility]ORYCLIA [id number] [address] Bacteria CSF Culton 06-02-19 22 Bacteria identified Cx Nom (CSF) CULTURE, CSF: No growth 14 days GRAM STAIN: No organisms seen Rare Polymorphonuclear leukocytes Gram stain performed on cytospun specimen. Normal [facility] Comment on above: Performed By: #### 6 06-4 ####[facility]ATORYCLIA [id number] [place] [address] [place] Basic metabolic 2000 panelon 06-02-2021 Anion gap [Moles/Vol] 10 mmol/L Normal 9-18 [facility] Comment on above: Order Comment: Speci men Type: BLOOD SPECIMEN Performed By: #### 2 4321-2, , 2776-05 ####[facility]ORYCLIA [id number] [place] [address] [place] Calcium [Mass/Vol] 8.1 mg/dL Low 8.5-10.2 [facility] Comment on above: Order Comment: Speci men Type: BLOOD SPECIMEN Performed By: #### 2 4321-2, , 2776-05 ####[facility]ORYCLIA [id number] [address] [place] Chloride [Moles/Vol] 108 mmol/L High 97-105 [facility] Comment on above: Order Comment: Speci men Type: BLOOD SPECIMEN Performed By: #### 2 4321-2, , 2776-05 ####[facility]ORYCLIA [id number] [address] [place] CO2 [Moles/Vol] 24 mmol/L Normal 22-30 [facility] Comment on above: Order Comment: Speci men Type: BLOOD SPECIMEN Performed By: #### 2 4321-2, , 2776-05 ####[facility]ORYCLIA [id number] [address] [place] Creatinine [Mass/Vol] 0.78 mg/dL Normal 0.73-1.22 [facility] Comment on above: Order Comment: Speci men Type: BLOOD SPECIMEN Performed By: #### 2 4321-2, , 2776-05 ####[facility]ORYCLIA [id number] [place] [address] [place] GFR/1.73 sq M.predicted [...] Performed By: #### 2 4321-2, , 2776-05 ####[facility]ITALCLIA [id number] [place] [address] [place] Glucose [Mass/Vol] 162 mg/dL High 74-99 [facility] Comment on above: Order Comment: Speci [facility] Type: BLOOD SPECIMEN Result Comment: The [place] [employer] (ADA) provides guidance for cutoff [...] Standards of Medical Care in Diabetes 2016, [employer]. Diabetes Care. 2016.39(Suppl 1). Performed By: #### 2 4321-2, , 2776-05 ####[facility]ORYCLIA [id number] [place] [address] [place] Potassium [Moles/Vol] 2.7 mmol/L Low 3.7-5.1 [facility] Comment on above: Order Comment: Speci [facility] Type: BLOOD SPECIMEN Performed By: #### 2 4321-2, , 2776-05 ####[facility] LABORATORYCLIA [id number] [address] Sodium [Moles/Vol] 142 mmol/L Normal 136-144 [facility] Comment on above: Order Comment: Speci men Type: BLOOD SPECIMEN Performed By: #### 2 4321-2, , 2776-05 ####[facility] LABORATORYCLIA [id number] [address] Urea nitrogen [Mass/Vol] 12 mg/dL Normal 9-24 [facility] Comment on above: Order Comment: Speci men Type: BLOOD SPECIMEN Performed By: #### 2 1-2, , 2776-05 ####[facility] LABORATORYCLIA [id number] [address] CBC panel Auto (Bld)on 06-02 Erythrocyte distribution width (RBC) [Ratio] 15.0 % Normal 11.5-15.0 [facility] Comment on above: Order Comment: Speci men Type: BLOOD SPECIMEN Performed By: #### 5 8410-2 ####[facility]ORYCLIA [id number] [address] Hematocrit (Bld) [Volume fraction] 34.3 % Low 39.0-51.0 [facility] Comment on above: Order Comment: Speci men Type: BLOOD SPECIMEN Performed By: #### 5 8410-2 ####[facility]ORYCLIA [id number] [address] Hemoglobin (Bld) [Mass/Vol] 10.3 g/dL Low 13.0-17.0 [facility] Comment on above: Order Comment: Speci men Type: BLOOD SPECIMEN Performed By: #### 5 8410-2 ####[facility]ATORYCLIA [id number] [address] MCH (RBC) [Entitic mass] 27.0 pg Normal 26.0-34.0 [facility] Comment on above: Order Comment: Speci men Type: BLOOD SPECIMEN Performed By: #### 5 8410-2 ####[facility]ORYCLIA [id number] [address] MCHC (RBC) [Mass/Vol] 30.0 g/dL Low 30.5-36.0 [facility] Comment on above: Order Comment: Speci men Type: BLOOD SPECIMEN Performed By: #### 5 8410-2 ####[facility]ATORYCLIA [id number] [address] MCV (RBC) [Entitic vol] 90.0 fL Normal 80.0-100.0 [facility] Comment on above: Order Comment: Speci men Type: BLOOD SPECIMEN Performed By: #### 5 8410-2 ####[facility]ATORYCLIA [id number] [address] Nucleated RBC (Bld) [#/Vol] 10*3/uL Normal <0.01 [facility] Comment on above: Order Comment: Speci men Type: BLOOD SPECIMEN Performed By: #### 5 8410-2 ####[facility]ORYCLIA [id number] [address] Platelet mean volume (Bld) [Entitic vol] 10.2 fL Normal 9.0-12.7 [facility] Comment on above: Order Comment: Speci men Type: BLOOD SPECIMEN Performed By: #### 5 8410-2 ####[facility]ATORYCLIA [id number] [address] Platelets (Bld) [#/Vol] 194 10*3/uL Normal 150-400 [facility] Comment on above: Order Comment: Speci men Type: BLOOD SPECIMEN Performed By: #### 5 8410-2 ####[facility]ORYCLIA [id number] [address] RBC (Bld) [#/Vol] 3.81 10*6/uL Low 4.20-6.00 [facility] Comment on above: Order Comment: Speci men Type: BLOOD SPECIMEN Performed By: #### 5 8410-2 ####[facility]ATORYCLIA [id number] [address] OF [facility] WBC (Bld) [#/Vol] 9.22 10*3/uL Normal 3.70-11.00 [facility] Comment on above: Order Comment: Speci men Type: BLOOD SPECIMEN Performed By: #### 5 8410-2 ####[facility]ATORYCLIA [id number] [address] [facility] CONSULT PROGon 06-02-2021 CONSULT PROG Normal [facility] CSF MANUAL DIFFon 06-02-2021 DIF TTL, CSF 25 cells counted Normal [facility] Comment on above: Order Comment: Speci men Type: CEREBROSPINAL FLUID Performed By: #### 3 4563-7, [id number], [id number] ####[facility]ATORYCLIA [id number] [address] [place] LYMPH%, CSF 4 % Low 50-90 [facility] Comment on above: Order Comment: Speci men Type: CEREBROSPINAL FLUID Performed By: #### 3 4563-7, [id number], [id number] ####[facility]ORYCLIA [id number] [address] [place] MACRO%, CSF 4 % High <1 [facility] Comment on above: Order Comment: Speci men Type: CEREBROSPINAL FLUID Performed By: #### 3 4563-7, [id number], [id number] ####[facility]ORYCLIA [id number] [address] [place] MONO%, CSF 20 % Normal 10-50 [facility] Comment on above: Order Comment: Speci men Type: CEREBROSPINAL FLUID Performed By: #### 3 4563-7, [id number], [id number] ####[facility]ORYCLIA [id number] [address] [place] NEUT%, CSF 72 % High 0-3 [facility] Comment on above: Order Comment: Speci men Type: CEREBROSPINAL FLUID Performed By: #### 3 4563-7, [id number], [id number] ####[facility]ATORYCLIA [id number] [place], [place] [address] [place] [address] CSF PATHOLOGIST INTERP (LAB REFLEX ORDER-NO BILL)on 06-02-2021 CSF STAFF REVIEW Negative Normal [facility] Comment on above: Order Comment: Speci men Type: CEREBROSPINAL FLUID Performed By: #### 3 4563-7, [id number], [id number] ####[facility]ORATORYCLIA [id number] [place], [place] [address] [place] [address] Pathologist name Reviewed by Amador Stevens MD [facility] Comment on above: Order Comment: Speci men Type: CEREBROSPINAL FLUID Performed By: #### 3 4563-7, [id number], [id number] ####[facility]ATORYCLIA [id number] [address] Cell count panel (CSF)on Clarity (CSF) Clear Normal Clear [facility] Comment on above: Order Comment: Speci men Type: CEREBROSPINAL FLUID Performed By: #### 3 4563-7, [id number], [id number] ####[facility]ATORYCLIA [id number] [place], [place] [address] [place] [address] Clarity (Unsp spec) Not Indicated Normal Clear [facility] Comment on above: Order Comment: Speci men Type: CEREBROSPINAL FLUID Performed By: #### 3 4563-7, [id number], [id number] ####[facility]ATORYCLIA [id number] [place], [place] [address] [place] [address] Color (CSF) Colorless Normal Colorless [facility] Comment on above: Order Comment: Speci men Type: CEREBROSPINAL FLUID Performed By: #### 3 4563-7, [id number], [id number] ####[facility]ORYCLIA [id number] [address] Color (Spun CSF) Not Indicated Normal Colorless [facility] Comment on above: Order Comment: Speci men Type: CEREBROSPINAL FLUID Performed By: #### 3 4563-7, [id number], [id number] ####[facility]ATORYCLIA [id number] [address] CSF TUBE NUMBER [employer] Normal [facility] Comment on above: Order Comment: Speci men Type: CEREBROSPINAL FLUID Performed By: #### 3 4563-7, [id number], [id number] ####[facility]ATORYCLIA [id number] [address] RBC Manual cnt (CSF) [#/Vol] 117 cells/uL High 0-5 [facility] Comment on above: Order Comment: Speci men Type: CEREBROSPINAL FLUID Performed By: #### 3 4563-7, [id number], [id number] ####[facility]ATORYCLIA [id number] [address] WBC Manual cnt (CSF) [#/Vol] 1 cells/uL Normal 0-[address] [place] [address] Comment on above: Order Comment: Speci men Type: CEREBROSPINAL FLUID Performed By: #### 3 4563-7, [id number], [id number] ####[facility]ATORYCLIA [id number] [address] Glucose CSF-mCncon 2 Glucose (CSF) [Mass/Vol] [...] Glucose HK (GLUC3) [package insert V 12.0 French]. [employer], [place], [place]. September 2015. 2. Michelle Moore, Loki, H. (2015). Chapter 7: Glucose and Lactate. Marianela Rothman.(eds.), Cerebrospinal Fluid in Clinical Neurology. [place]: [employer]. Performed By: #### 2 342-4 ####[facility]ORATORYCLIA [id number] [address] HEPATIC FUNCTION PNLon 06-02 Albumin [Mass/Vol] 3.2 g/dL Low 3.9-4.9 [facility] Comment on above: Order Comment: Speci men Type: BLOOD SPECIMEN Performed By: #### H [place], 55423-9 ####[facility]ATORYCLIA [id number] [address] ALP [Catalytic activity/Vol] 67 U/L Normal 38-113 [facility] Comment on above: Order Comment: Speci men Type: BLOOD SPECIMEN Performed By: #### [place], [address]-8 ####[facility]ATORYCLIA [id number] [address] ALT With P-5'-P [Catalytic activity/Vol] 16 U/L Normal 10-54 [facility] Comment on above: Order Comment: Speci men Type: BLOOD SPECIMEN Performed By: #### [place], 33038-7 ####[facility]ORYCLIA [id number] [address] AST With P-5'-P [Catalytic activity/Vol] 25 U/L Normal 14-40 [facility] Comment on above: Order Comment: Speci men Type: BLOOD SPECIMEN Performed By: #### H FP, 72301-5 ####[facility]ATORYCLIA [id number] [address] Bilirubin [Mass/Vol] 0.2 mg/dL Normal 0.2-1.3 [facility] Comment on above: Order Comment: Speci men Type: BLOOD SPECIMEN Performed By: #### [place], [address]-4 ####[facility]ATORYCLIA [id number] [address] Bilirubin.conjugated [Mass/Vol] mg/dL Normal <0.2 [facility] Comment on above: Order Comment: Speci men Type: BLOOD SPECIMEN Performed By: #### H FP, 07924-1 ####[facility]ATORYCLIA [id number] [address] STATES [facility] Protein [Mass/Vol] 5.8 g/dL Low 6.3-8.0 [facility] Comment on above: Order Comment: Speci men Type: BLOOD SPECIMEN Performed By: #### Marin KATHIE, 70471-3 ####[facility]ORATORYCLIA [id number] [address] [place] MRI BRAIN WO/W IVCONon 06-02 MRI BRAIN WO/W IVCON Normal [facility] Magnesium SerPl-mCncon 06-02 Magnesium [Mass/Vol] 2.0 mg/dL Normal 1.7-2.3 [facility] Comment on above: Order Comment: Speci men Type: BLOOD SPECIMEN Performed By: #### 2 4321-2, , 2776-05 ####[facility]ATORYCLIA [id number] [address] NT-[facility] Natriuretic peptide.B prohormone N-Terminal [Mass/Vol] 296 pg/mL High <125 [facility] Comment on above: Order Comment: Speci men Type: BLOOD SPECIMEN Performed By: #### Marin KATHIE, 14427-3 ####[facility]ATORYCLIA [id number] [address] [place] POTASSIUM BLDon 06-02-2021 Potassium [Moles/Vol] 3.2 mmol/L Low 3.7-5.1 [facility] Comment on above: Order Comment: Speci men Type: BLOOD SPECIMEN Performed By: #### K 1 ####[facility]ORATORYCLIA [id number] [address] [facility] Phosphate SerPl-ncon 06-02 Phosphate [Mass/Vol] 2.1 mg/dL Low 2.7-4.8 [facility] Comment on above: Order Comment: Speci men Type: BLOOD SPECIMEN Performed By: #### 2 4321-2, , 2776-05 ####[facility]ATORYCLIA [id number] [address] STATES [facility] Vancomycin random [Mass/Vol] on 06-02-2021 Vancomycin [Mass/Vol] 18.8 ug/mL Normal 10.0-20.0 [facility] Comment on above: Order Comment: Speci men Type: BLOOD SPECIMEN Result Comment: Refe rence ranges and high/low indicator flags are provided as general guidelines only. The treating physician must determine appropriate target levels/dosing based on the specific clinical situation. Performed By: #### 4 091-5 ####[facility]ORATORYCLIA [id number] [address] [facility] ALLIED HEALTHon 06-01-2021 ALLIED HEALTH Normal [facility] ALLIED HEALTH Normal [facility] ALLIED HEALTH Normal [facility] ARTERIAL BLOOD GASESon 06-01 Base excess Calc (Bld) [Moles/Vol] 1 mmol/L Normal 0-2 [facility] Comment on above: Order Comment: Speci men Type: ARTERIAL BLOOD SPECIMEN Performed By: #### A LLBG ####[facility]ATORYCLIA [id number] [address] Body temperature 97.52 [degF] Normal [facility] Comment on above: Order Comment: Speci men Type: ARTERIAL BLOOD SPECIMEN Performed By: #### A LLBG ####[facility]ATORYCLIA [id number] [address] CALCIUM IONIZED, PH CORRECTED 1.13 mmol/L Normal 1.08-1.30 [facility] Comment on above: Order Comment: Speci men Type: ARTERIAL BLOOD SPECIMEN Performed By: #### A LLBG ####[facility]ATORYCLIA [id number] [address] Calcium.ionized (BldV) [Mass/Vol] 1.12 mmol/L Normal 1.08-1.30 [facility] Comment on above: Order Comment: Speci men Type: ARTERIAL BLOOD SPECIMEN Performed By: #### A LLBG ####[facility]ORYCLIA [id number] [address] Carboxyhemoglobin (BldA) [Mass fraction] 1.6 % Normal 0.0-2.0 [facility] Comment on above: Order Comment: Speci men Type: ARTERIAL BLOOD SPECIMEN Result Comment: Carb oxyhemoglobin Reference Range for Smokers: 2.0-8.0% Performed By: #### A LLBG ####[facility]ATORYCLIA [id number] [address] CO2 (Bld) [Partial pressure] 41 mm Hg Normal 36-46 [facility] Comment on above: Order Comment: Speci men Type: ARTERIAL BLOOD SPECIMEN Performed By: #### A LLBG ####[facility]ORYCLIA [id number] [address] CO2 [Moles/Vol] 23.0 mmol/L Normal 22-28 [facility] Comment on above: Order Comment: Speci men Type: ARTERIAL BLOOD SPECIMEN Performed By: #### A LLBG ####[facility]ORYCLIA [id number] [address] CO2 adjusted to patient's actual temperature (Bld) [Partial pressure] 40 mmHg Normal 36-46 [facility] Comment on above: Order Comment: Speci men Type: ARTERIAL BLOOD SPECIMEN Performed By: #### A LLBG ####[facility]ORYCLIA [id number] [address] [place] FIO2 40 % Normal [facility] Comment on above: Order Comment: Speci men Type: ARTERIAL BLOOD SPECIMEN Performed By: #### A LLBG ####[facility]ORYCLIA [id number] [address] Glucose [Mass/Vol] 127 mg/dL High 60-105 [facility] Comment on above: Order Comment: Speci men Type: ARTERIAL BLOOD SPECIMEN Performed By: #### A LLBG ####[facility]ORYCLIA [id number] [address] HCO3 (Bld) [Moles/Vol] 25 mmol/L Normal 22-26 [facility] Comment on above: Order Comment: Speci men Type: ARTERIAL BLOOD SPECIMEN Performed By: #### A LLBG ####[facility]ORYCLIA [id number] [address] Hematocrit (Bld) [Volume fraction] 33.7 % Low 39.0-51.0 [facility] Comment on above: Order Comment: Speci men Type: ARTERIAL BLOOD SPECIMEN Performed By: #### A LLBG ####[facility]ORYCLIA [id number] [address] Hemoglobin (Bld) [Mass/Vol] 10.9 g/dL Low 13.0-17.0 [facility] Comment on above: Order Comment: Speci men Type: ARTERIAL BLOOD SPECIMEN Performed By: #### A LLBG ####[facility]ORYCLIA [id number] [address] INHALED TIDAL VOLUME (ML) 500 Normal [facility] Comment on above: Order Comment: Speci men Type: ARTERIAL BLOOD SPECIMEN Performed By: #### A LLBG ####[facility]ORATORYCLIA [id number] [address] INVASIVE VENTILATOR MODE PRVC=Pressure Regulated Volume Control [facility] Comment on above: Order Comment: Speci men Type: ARTERIAL BLOOD SPECIMEN Performed By: #### A LLBG ####[facility]ORYCLIA [id number] [address] Methemoglobin (Bld) [Mass fraction] % Normal 0.0-1.5 [facility] Comment on above: Order Comment: Speci men Type: ARTERIAL BLOOD SPECIMEN Performed By: #### A LLBG ####[facility]ORYCLIA [id number] [address] O2 THERAPY Ventilator Normal [facility] Comment on above: Order Comment: Speci men Type: ARTERIAL BLOOD SPECIMEN Performed By: #### A LLBG ####[facility]ORYCLIA [id number] [address] Oxygen (Bld) [Partial pressure] 64 mm Hg Low 85-95 [facility] Comment on above: Order Comment: Speci men Type: ARTERIAL BLOOD SPECIMEN Performed By: #### A LLBG ####[facility]ORYCLIA [id number] [address] Oxygen adjusted to patient's actual temperature (Bld) [Partial pressure] 61.8 mmHg Low 85-95 [facility] Comment on above: Order Comment: Speci men Type: ARTERIAL BLOOD SPECIMEN Performed By: #### A LLBG ####[facility]ORYCLIA [id number] [address] OXYGEN SATURATION, ARTERIAL 94 % Low 95-98 [facility] Comment on above: Order Comment: Speci men Type: ARTERIAL BLOOD SPECIMEN Performed By: #### A LLBG ####[facility]ORYCLIA [id number] [address] Oxyhemoglobin (BldA) [Mass fraction] 92 % Low 95-98 [facility] Comment on above: Order Comment: Speci men Type: ARTERIAL BLOOD SPECIMEN Performed By: #### A LLBG ####[facility]ORYCLIA [id number] [address] PEEP/CPAP 5 cmH2O Normal [facility] Comment on above: Order Comment: Speci men Type: ARTERIAL BLOOD SPECIMEN Performed By: #### A LLBG ####[facility]ORYCLIA [id number] [address] pH (Bld) 7.40 [pH] Normal 7.35-7.45 [facility] Comment on above: Order Comment: Speci men Type: ARTERIAL BLOOD SPECIMEN Performed By: #### A LLBG ####[facility]ORYCLIA [id number] [address] pH adjusted to patient's actual temperature (Bld) 7.41 Normal 7.35-7.45 [facility] Comment on above: Order Comment: Speci men Type: ARTERIAL BLOOD SPECIMEN Performed By: #### A LLBG ####[facility]ORYCLIA [id number] [address] Potassium [Moles/Vol] 3.1 mmol/L Low 3.5-5.0 [facility] Comment on above: Order Comment: Speci men Type: ARTERIAL BLOOD SPECIMEN Performed By: #### A LLBG ####[facility]ORYCLIA [id number] [address] SET VENTILATOR RESPIRATORY RATE (BPM) 18 BPM Normal [facility] Comment on above: Order Comment: Speci men Type: ARTERIAL BLOOD SPECIMEN Performed By: #### A LLBG ####[facility]ORYCLIA [id number] [address] Sodium [Moles/Vol] 141 mmol/L Normal 136-144 [facility] Comment on above: Order Comment: Speci men Type: ARTERIAL BLOOD SPECIMEN Performed By: #### A LLBG ####[facility]ORYCLIA [id number] [address] BASE DEFICIT, ARTERIAL -1.0 mmol/L Normal -2-0 [facility] Comment on above: Order Comment: Speci men Type: ARTERIAL BLOOD SPECIMEN Performed By: #### A LLBG ####[facility]ORYCLIA [id number] [address] Body temperature 98.24 [degF] Normal [facility] Comment on above: Order Comment: Speci men Type: ARTERIAL BLOOD SPECIMEN Performed By: #### A LLBG ####[facility]ORYCLIA [id number] [address] CALCIUM IONIZED, PH CORRECTED 1.08 mmol/L Normal 1.08-1.30 [facility] Comment on above: Order Comment: Speci men Type: ARTERIAL BLOOD SPECIMEN Performed By: #### A LLBG ####[facility]ORYCLIA [id number] [address] Calcium.ionized (BldV) [Mass/Vol] 1.15 mmol/L Normal 1.08-1.30 [facility] Comment on above: Order Comment: Speci men Type: ARTERIAL BLOOD SPECIMEN Performed By: #### A LLBG ####[facility]ORYCLIA [id number] [address] Carboxyhemoglobin (BldA) [Mass fraction] 1.4 % Normal 0.0-2.0 [facility] Comment on above: Order Comment: Speci men Type: ARTERIAL BLOOD SPECIMEN Result Comment: Carb oxyhemoglobin Reference Range for Smokers: 2.0-8.0% Performed By: #### A LLBG ####[facility]ORYCLIA [id number] [address] CO2 (Bld) [Partial pressure] 59 mm Hg High 36-46 [facility] Comment on above: Order Comment: Speci men Type: ARTERIAL BLOOD SPECIMEN Performed By: #### A LLBG ####[facility]ORYCLIA [id number] [address] CO2 [Moles/Vol] 24.5 mmol/L Normal 22-28 [facility] Comment on above: Order Comment: Speci men Type: ARTERIAL BLOOD SPECIMEN Performed By: #### A LLBG ####[facility]ORYCLIA [id number] [address] CO2 adjusted to patient's actual temperature (Bld) [Partial pressure] 58 mmHg High 36-46 [facility] Comment on above: Order Comment: Speci men Type: ARTERIAL BLOOD SPECIMEN Performed By: #### A LLBG ####[facility]ORYCLIA [id number] [address] FIO2 40 % Normal [facility] Comment on above: Order Comment: Speci men Type: ARTERIAL BLOOD SPECIMEN Performed By: #### A LLBG ####[facility]ORYCLIA [id number] [address] [place] Glucose [Mass/Vol] 128 mg/dL High 60-105 [facility] Comment on above: Order Comment: Speci men Type: ARTERIAL BLOOD SPECIMEN Performed By: #### A LLBG ####[facility]ORYCLIA [id number] [address] [place] HCO3 (Bld) [Moles/Vol] 26 mmol/L Normal 22-26 [facility] Comment on above: Order Comment: Speci men Type: ARTERIAL BLOOD SPECIMEN Performed By: #### A LLBG ####[facility]ORYCLIA [id number] [address] [place] Hematocrit (Bld) [Volume fraction] 35.6 % Low 39.0-51.0 [facility] Comment on above: Order Comment: Speci men Type: ARTERIAL BLOOD SPECIMEN Performed By: #### A LLBG ####[facility]ORYCLIA [id number] [address] [place] Hemoglobin (Bld) [Mass/Vol] 11.5 g/dL Low 13.0-17.0 [facility] Comment on above: Order Comment: Speci men Type: ARTERIAL BLOOD SPECIMEN Performed By: #### A LLBG ####[facility]ORYCLIA [id number] [address] [place] INHALED TIDAL VOLUME (ML) 500 Normal [facility] Comment on above: Order Comment: Speci men Type: ARTERIAL BLOOD SPECIMEN Performed By: #### A LLBG ####[facility]ORYCLIA [id number] [address] [place] INVASIVE VENTILATOR MODE PRVC=Pressure Regulated Volume Control Normal [facility] Comment on above: Order Comment: Speci men Type: ARTERIAL BLOOD SPECIMEN Performed By: #### A LLBG ####[facility]ORYCLIA [id number] [address] [place] Methemoglobin (Bld) [Mass fraction] % Normal 0.0-1.5 [facility] Comment on above: Order Comment: Speci men Type: ARTERIAL BLOOD SPECIMEN Performed By: #### A LLBG ####[facility]ORYCLIA [id number] [address] O2 THERAPY Ventilator Normal [facility] Comment on above: Order Comment: Speci men Type: ARTERIAL BLOOD SPECIMEN Performed By: #### A LLBG ####[facility]ORYCLIA [id number] [address] Oxygen (Bld) [Partial pressure] 88 mm Hg Normal 85-95 [facility] Comment on above: Order Comment: Speci men Type: ARTERIAL BLOOD SPECIMEN Performed By: #### A LLBG ####[facility]ORYCLIA [id number] [address] Oxygen adjusted to patient's actual temperature (Bld) [Partial pressure] 86.5 mmHg Normal 85-95 [facility] Comment on above: Order Comment: Speci men Type: ARTERIAL BLOOD SPECIMEN Performed By: #### A LLBG ####[facility]ORYCLIA [id number] [address] [place] OXYGEN SATURATION, ARTERIAL 95 % Normal 95-98 [facility] Comment on above: Order Comment: Speci men Type: ARTERIAL BLOOD SPECIMEN Performed By: #### A LLBG ####[facility]ORYCLIA [id number] [address] [place] Oxyhemoglobin (BldA) [Mass fraction] 93 % Low 95-98 [facility] Comment on above: Order Comment: Speci men Type: ARTERIAL BLOOD SPECIMEN Performed By: #### A LLBG ####[facility]ORYCLIA [id number] [address] [place] PEEP/CPAP 5 cmH2O Normal [facility] Comment on above: Order Comment: Speci men Type: ARTERIAL BLOOD SPECIMEN Performed By: #### A LLBG ####[facility]ORYCLIA [id number] [address] [place] pH (Bld) 7.27 [pH] Low 7.35-7.45 [facility] Comment on above: Order Comment: Speci men Type: ARTERIAL BLOOD SPECIMEN Performed By: #### A LLBG ####[facility]ORYCLIA [id number] [address] pH adjusted to patient's actual temperature (Bld) 7.28 Low 7.35-7.45 [facility] Comment on above: Order Comment: Speci men Type: ARTERIAL BLOOD SPECIMEN Performed By: #### A LLBG ####[facility]ATORYCLIA [id number] [address] Potassium [Moles/Vol] 3.3 mmol/L Low 3.5-5.0 [facility] Comment on above: Order Comment: Speci men Type: ARTERIAL BLOOD SPECIMEN Performed By: #### A LLBG ####[facility]ATORYCLIA [id number] [address] SET VENTILATOR RESPIRATORY RATE (BPM) 14 BPM Normal [facility] Comment on above: Order Comment: Speci men Type: ARTERIAL BLOOD SPECIMEN Performed By: #### A LLBG ####[facility]ORYCLIA [id number] [address] Sodium [Moles/Vol] 141 mmol/L Normal 136-144 [facility] Comment on above: Order Comment: Speci men Type: ARTERIAL BLOOD SPECIMEN Performed By: #### A LLBG ####[facility]ATORYCLIA [id number] [address] Bacteria CSF Culton 06-01-19 Bacteria identified Cx Nom (CSF) CULTURE, CSF: No growth 14 days GRAM STAIN: No organisms seen Rare Polymorphonuclear leukocytes Moderate Red Blood Cells Gram stain performed on cytospun specimen. Normal [facility] Comment on above: Performed By: #### 6 06-4 ####[facility]ORYCLIA [id number] [address] Bacteria Spec Resp Culton Bacteria identified Respiratory culture Nom (Unsp spec) CULTURE, RESPIRATORY: No growth 2 days GRAM STAIN: No organisms seen No Polymorphonuclear Leukocytes Normal [facility] Comment on above: Performed By: #### 3 2355-0 ####[facility]ORYCLIA [id number] [address] [place] [facility] Basic metabolic 2000 panelon 06-01-2021 Anion gap [Moles/Vol] 8 mmol/L Low 9-18 [facility] Comment on above: Order Comment: Speci men Type: BLOOD SPECIMEN Performed By: #### 2 4321-2, , 2776-05 ####[facility]ORYCLIA [id number] [address] [place] Calcium [Mass/Vol] 7.8 mg/dL Low 8.5-10.2 [facility] Comment on above: Order Comment: Speci men Type: BLOOD SPECIMEN Performed By: #### 2 4321-2, , 2776-05 ####[facility]ORYCLIA [id number] [address] [place] [facility] Chloride [Moles/Vol] 109 mmol/L High 97-105 [facility] Comment on above: Order Comment: Speci men Type: BLOOD SPECIMEN Performed By: #### 2 4321-2, , 2776-05 ####[facility]ORYCLIA [id number] [address] [place] CO2 [Moles/Vol] 26 mmol/L Normal 22-30 [facility] Comment on above: Order Comment: Speci men Type: BLOOD SPECIMEN Performed By: #### 2 4321-2, , 2776-05 ####[facility]ORYCLIA [id number] [address] [place] Creatinine [Mass/Vol] 0.82 mg/dL Normal 0.73-1.22 [facility] Comment on above: Order Comment: Speci men Type: BLOOD SPECIMEN Performed By: #### 2 4321-2, , 2776-05 ####[facility] LABORATORYCLIA [id number] [place] [address] [place] GFR/1.73 sq M.predicted [...] actual GFR. Performed By: #### 2 4321-2, 35857-5, 2777-1 ####[facility]ATORYCLIA [id number] [place] [address] [place] Glucose [Mass/Vol] 105 mg/dL High 74-99 [facility] Comment on above: Order Comment: Speci men Type: BLOOD SPECIMEN Result Comment: The [place] Diabetes Association (ADA) provides guidance for cutoff [...] Standards of Medical Care in Diabetes 2016, [place] [employer]. Diabetes Care. 2016.39(Suppl 1). Performed By: #### 2 4321-2, 41815-7, 7- ####[facility]ATORYCLIA [id number] [place] [address] [place] Potassium [Moles/Vol] 3.8 mmol/L Normal 3.7-5.1 [facility] Comment on above: Order Comment: Speci men Type: BLOOD SPECIMEN Performed By: #### 2 4321-2, 83021-4, 2776- ####[facility] LABORATORYCLIA [id number] [address] Sodium [Moles/Vol] 143 mmol/L Normal 136-144 [facility] Comment on above: Order Comment: Speci men Type: BLOOD SPECIMEN Performed By: #### 2 4321-2, , 2776-05 ####[facility]ATORYCLIA [id number] [address] Urea nitrogen [Mass/Vol] 15 mg/dL Normal 9-24 [facility] Comment on above: Order Comment: Speci men Type: BLOOD SPECIMEN Performed By: #### 2 4321-2, , 2776-05 ####[facility] LABORATORYCLIA [id number] [address] CBC panel Auto (Bld)on 06-01 Erythrocyte distribution width (RBC) [Ratio] 15.4 % High 11.5-15.0 [facility] Comment on above: Order Comment: Speci men Type: BLOOD SPECIMEN Performed By: #### 5 8410-2 ####[facility]ORYCLIA [id number] [address] Hematocrit (Bld) [Volume fraction] 38.4 % Low 39.0-51.0 [facility] Comment on above: Order Comment: Speci men Type: BLOOD SPECIMEN Performed By: #### 5 8410-2 ####[facility]ORYCLIA [id number] [address] Hemoglobin (Bld) [Mass/Vol] 11.1 g/dL Low 13.0-17.0 [facility] Comment on above: Order Comment: Speci men Type: BLOOD SPECIMEN Performed By: #### 5 8410-2 ####[facility]ATORYCLIA [id number] [address] MCH (RBC) [Entitic mass] 26.9 pg Normal 26.0-34.0 [facility] Comment on above: Order Comment: Speci men Type: BLOOD SPECIMEN Performed By: #### 5 8410-2 ####[facility]ORYCLIA [id number] [address] MCHC (RBC) [Mass/Vol] 28.9 g/dL Low 30.5-36.0 [facility] Comment on above: Order Comment: Speci men Type: BLOOD SPECIMEN Performed By: #### 5 8410-2 ####[facility]ATORYCLIA [id number] [address] MCV (RBC) [Entitic vol] 93.2 fL Normal 80.0-100.0 [facility] Comment on above: Order Comment: Speci men Type: BLOOD SPECIMEN Performed By: #### 5 8410-2 ####[facility]ATORYCLIA [id number] [address] Nucleated RBC (Bld) [#/Vol] 10*3/uL Normal <0.01 [facility] Comment on above: Order Comment: Speci men Type: BLOOD SPECIMEN Performed By: #### 5 8410-2 ####[facility]ORYCLIA [id number] [address] Platelet mean volume (Bld) [Entitic vol] 10.2 fL Normal 9.0-12.7 [facility] Comment on above: Order Comment: Speci men Type: BLOOD SPECIMEN Performed By: #### 5 8410-2 ####[facility]ATORYCLIA [id number] [address] Platelets (Bld) [#/Vol] 231 10*3/uL Normal 150-400 [facility] Comment on above: Order Comment: Speci men Type: BLOOD SPECIMEN Performed By: #### 5 8410-2 ####[facility]ATORYCLIA [id number] [place] RBC (Bld) [#/Vol] 4.12 10*6/uL Low 4.20-6.00 [facility] Comment on above: Order Comment: Speci men Type: BLOOD SPECIMEN Performed By: #### 5 8410-2 ####[facility]ORYCLIA [id number] [address] WBC (Bld) [#/Vol] 10.99 10*3/uL Normal 3.70-11.00 [facility] Comment on above: Order Comment: Speci men Type: BLOOD SPECIMEN Performed By: #### 5 8410-2 ####[facility]ATORYCLIA [id number] [address] CONSULT PROGon 06-01-2021 CONSULT PROG Normal [facility] CSF MANUAL DIFFon 06-01-2021 DIF TTL, CSF 100 cells counted Normal [facility] Comment on above: Order Comment: Speci men Type: CEREBROSPINAL FLUID Performed By: #### 3 4563-7, [id number] ####[facility]ATORYCLIA [id number] [address] [place] LYMPH%, CSF 11 % Low 50-90 [facility] Comment on above: Order Comment: Speci men Type: CEREBROSPINAL FLUID Performed By: #### 3 4563-7, [id number] ####[facility]ATORYCLIA [id number] [address] [place] MONO%, CSF 10 % Normal 10-50 [facility] Comment on above: Order Comment: Speci men Type: CEREBROSPINAL FLUID Performed By: #### 3 4563-7, [id number] ####[facility]ATORYCLIA [id number] [address] [place] NEUT%, CSF 79 % High 0-3 [facility] Comment on above: Order Comment: Speci men Type: CEREBROSPINAL FLUID Performed By: #### 3 4563-7, [id number] ####[facility]ATORYCLIA [id number] [address] BRAIN WO IVCONon 06-01-19 CT BRAIN WO IVCON Normal [facility] Cell count panel (CSF)on Clarity (CSF) Clear Normal Clear [facility] Comment on above: Order Comment: Speci men Type: CEREBROSPINAL FLUID Performed By: #### 3 4563-7, [id number] ####[facility]ATORYCLIA [id number] [address] Clarity (Unsp spec) Not Indicated Normal Clear [facility] Comment on above: Order Comment: Speci men Type: CEREBROSPINAL FLUID Performed By: #### 3 4563-7, [id number] ####[facility]ATORYCLIA [id number] [address] Color (CSF) Colorless Normal Colorless [facility] Comment on above: Order Comment: Speci men Type: CEREBROSPINAL FLUID Performed By: #### 3 4563-7, [id number] ####[facility]ATORYCLIA [id number] [address] Color (Spun CSF) Not Indicated Normal Colorless [facility] Comment on above: Order Comment: Speci men Type: CEREBROSPINAL FLUID Performed By: #### 3 4563-7, [id number] ####[facility]ATORYCLIA [id number] [address] CSF TUBE NUMBER [employer] Normal [facility] Comment on above: Order Comment: Speci men Type: CEREBROSPINAL FLUID Performed By: #### 3 4563-7, [id number] ####[facility]ATORYCLIA [id number] [address] RBC Manual cnt (CSF) [#/Vol] 171 cells/uL High 0-5 [facility] Comment on above: Order Comment: Speci men Type: CEREBROSPINAL FLUID Performed By: #### 3 4563-7, [id number] ####[facility]ATORYCLIA [id number] [address] WBC Manual cnt (CSF) [#/Vol] 5 cells/uL Normal 0-5 [facility] Comment on above: Order Comment: Speci men Type: CEREBROSPINAL FLUID Performed By: #### 3 4563-7, [id number] ####[facility]ATORYCLIA [id number] [place] [id number] [place] FUNGAL CULTUREon 06-01-2021 FUNGAL CULTURE CULTURE, FUNGAL: No Fungus isolated after 28 days Normal [facility] Comment on above: Performed By: #### F CUL ####[facility]ORATORYCLIA [id number] [place] [address] [place] Glucose CSF-mCncon 2 [...] Glucose HK (GLUC3) [package insert V 12.0 French]. [employer], [place], [place]. September 2015. 2. Michelle Moore, Loki, H. (2015). Chapter 7: Glucose and Lactate. FGarfield Alcocer al.(eds.), Cerebrospinal Fluid in Clinical Neurology. [place]: [employer]. Performed By: #### 2 342-4, 2880-3 ####[facility]ATORYCLIA [id number] [place] [address] [place] HERPES SIMPLEX CSFon 022 HERPES SIMPLEX CSF HSV PCR SPEC SOURCE: Cerebrospinal Fluid HSV-1: Negative for Herpes Simplex Virus Type 1 by PCR HSV-2: Negative for Herpes Simplex Virus Type 2 by PCR Normal [facility] Comment on above: Performed By: #### H [facility] ####[facility] LABCLIA [id number] [place] [address] [id number] [address] [place] Lactate (Bld) [Moles/Vol]on 06-01-2021 Lactate [Moles/Vol] 0.5 mmol/L Normal 0.5-2.2 [facility] Comment on above: Order Comment: Speci men Type: BLOOD SPECIMEN Performed By: #### 3 2693-4 ####[facility]ATORYCLIA [id number] [place] [id number] [facility] [place] MENINGITIS ENCEPHALITIS BIOF IREon 06-01-2021 MENINGITIS ENCEPHALITIS BIOFIRE Negative Normal [facility] Comment on above: Order Comment: Speci men Type: CEREBROSPINAL FLUID Performed By: #### M GEBF ####[facility] CENTERCLIA [id number] [address] Magnesium SerPl-mCncon 06-01 Magnesium [Mass/Vol] 2.2 mg/dL Normal 1.7-2.3 [facility] Comment on above: Order Comment: Speci men Type: BLOOD SPECIMEN Performed By: #### 2 4321-2, 56800-5, 2777-1 ####[facility]ATORYCLIA [id number] [address] Microorganism Spec Culton Microorganism identified Cx Nom (Unsp spec) CULTURE, AFB: No Acid Fast Bacilli isolated after 42 days AFB STAIN: No acid fast bacilli seen by flurochrome stain Normal [facility] Comment on above: Performed By: #### 1 1475-1 ####[facility]ATORYCLIA [id number] [address] [place] PROCALCITONIN (LAB)on 2021 Procalcitonin [Mass/Vol] 0.08 ng/mL Normal <0.09 [facility] Comment on above: Order Comment: Speci men Type: BLOOD SPECIMEN Result Comment: For a guided interpretation of test results, please visit the Change in Procalcitonin Calculator, [email or web address]. Performed By: #### P ROCAL ####[facility]ATORYCLIA [id number] [address] [place] Phosphate SerPl-mCncon 06-01 Phosphate [Mass/Vol] 3.5 mg/dL Normal 2.7-4.8 [facility] Comment on above: Order Comment: Speci men Type: BLOOD SPECIMEN Performed By: #### 2 4321-2, 24551-2, 2777-1 ####[facility]ATORYCLIA [id number] [address] [place] [facility] Prot CSF-mCncon 06-01-2021 Protein (CSF) [Mass/Vol] 52 mg/dL High 15-45 [facility] Comment on above: Order Comment: Speci men Type: CEREBROSPINAL FLUID Performed By: #### 2 342-4, 2880-3 ####[facility]ATORYCLIA [id number] [address] Vancomycin random [Mass/Vol] on 06-01-2021 Vancomycin [Mass/Vol] 14.6 ug/mL Normal 10.0-20.0 [facility] Comment on above: Order Comment: Speci men Type: BLOOD SPECIMEN Result Comment: Refe rence ranges and high/low indicator flags are provided as general guidelines only. The treating physician must determine appropriate target levels/dosing based on the specific clinical situation. Performed By: #### 4 091-5 ####[facility]ATORYCLIA [id number] [address] XR CHEST 1V FRONTALon 2021 XR [...] ALLIED HEALTHon 05-31-2021 ALLIED HEALTH HNO ID: [id number] Author: Christina Lynne RT(R) Service: Radiology Author [...] on above: Performed By: #### 6 00-7 ####[facility]ORATORYCLIA [id number] [place] [address] [place] Bacteria CSF Culton 05-31-19 22 Bacteria identified Cx Nom (CSF) CULTURE, CSF: No growth 14 days GRAM STAIN: No organisms seen Rare Polymorphonuclear leukocytes Rare Red Blood Cells Gram stain performed on cytospun specimen. Normal [facility] Comment on above: Performed By: #### 6 06-4 ####[facility]ATORYCLIA [id number] [place] [address] [place] Basic metabolic 2000 panelon 05-31-2021 Anion gap [Moles/Vol] 9 mmol/L Normal 9-18 [facility] Comment on above: Order Comment: Speci men Type: BLOOD SPECIMEN Performed By: #### 2 777-1, , ####[facility]ATORYCLIA [id number] [place] [address] [place] Calcium [Mass/Vol] 8.2 mg/dL Low 8.5-10.2 [facility] Comment on above: Order Comment: Speci men Type: BLOOD SPECIMEN Performed By: #### 2 777-1, 98804-9, ####[facility]ATORYCLIA [id number] [address] [place] Chloride [Moles/Vol] 110 mmol/L High 97-105 [facility] Comment on above: Order Comment: Speci men Type: BLOOD SPECIMEN Performed By: #### 2 777-1, 87775-0, ####[facility]ORYCLIA [id number] [place], [place] [id number] [place] [address] [place] [facility] CO2 [Moles/Vol] 27 mmol/L Normal 22-30 [facility] Comment on above: Order Comment: Speci men Type: BLOOD SPECIMEN Performed By: #### 2 777-1, 62537-7, ####[facility]ATORYCLIA [id number] [place] [id number] [place] Creatinine [Mass/Vol] 0.85 mg/dL Normal 0.73-1.22 [facility] Comment on above: Order Comment: Speci men Type: BLOOD SPECIMEN Performed By: #### 2 777-1, 57137-4, ####[facility]ATORYCLIA [id number] [address] GFR/1.73 sq M.predicted MDRD (S/P/Bld) [Vol [...] actual GFR. Performed By: #### 2 777-1, 58055-4, ####[facility]ATORYCLIA [id number] [address] [place] [facility] Glucose [Mass/Vol] 111 mg/dL High 74-99 [facility] Comment on above: Order Comment: Speci men Type: BLOOD SPECIMEN Result Comment: The [place] Diabetes Association (ADA) provides guidance for cutoff [...] Standards of Medical Care in Diabetes 2016, [place] [employer]. Diabetes Care. 2016.39(Suppl 1). Performed By: #### 2 777-1, , ####[facility]ATORYCLIA [id number] [address] [place] [facility] Potassium [Moles/Vol] 3.7 mmol/L Normal 3.7-5.1 [facility] Comment on above: Order Comment: Speci men Type: BLOOD SPECIMEN Performed By: #### 2 777-1, , ####[facility]ATORYCLIA [id number] [address] [place] [facility] Sodium [Moles/Vol] 146 mmol/L High 136-144 [facility] Comment on above: Order Comment: Speci men Type: BLOOD SPECIMEN Performed By: #### 2 777-1, , ####[facility]ATORYCLIA [id number] [address] [place] Urea nitrogen [Mass/Vol] 16 mg/dL Normal 9-24 [facility] Comment on above: Order Comment: Speci men Type: BLOOD SPECIMEN Performed By: #### 2 777-1, , ####[facility]ATORYCLIA [id number] [address] [place] CASE MGT INIT ASSESon 2021 CASE MGT INIT ASSES Normal [facility] CBC W Auto Differential pane l (Bld)on 05-31-2021 Basophils (Bld) [#/Vol] 0.04 10*3/uL Normal <0.11 [facility] Comment on above: Order Comment: Speci men Type: BLOOD SPECIMEN Performed By: #### 5 7021-8 ####[facility]ORYCLIA [id number] [address] Basophils/100 WBC (Bld) 0.5 % Normal [facility] Comment on above: Order Comment: Speci men Type: BLOOD SPECIMEN Performed By: #### 5 7021-8 ####[facility]ORYCLIA [id number] [address] Differential cell count method Nom (Bld) Auto Normal [facility] Comment on above: Order Comment: Speci men Type: BLOOD SPECIMEN Performed By: #### 5 7021-8 ####[facility]ORYCLIA [id number] [address] Eosinophils (Bld) [#/Vol] 0.27 10*3/uL Normal <0.46 [facility] Comment on above: Order Comment: Speci men Type: BLOOD SPECIMEN Performed By: #### 5 7021-8 ####[facility]ORYCLIA [id number] [address] Eosinophils/100 WBC (Bld) 3.3 % Normal [facility] Comment on above: Order Comment: Speci men Type: BLOOD SPECIMEN Performed By: #### 5 7021-8 ####[facility]ORYCLIA [id number] [address] Erythrocyte distribution width (RBC) [Ratio] 15.4 % High 11.5-15.0 [facility] Comment on above: Order Comment: Speci men Type: BLOOD SPECIMEN Performed By: #### 5 7021-8 ####[facility]ATORYCLIA [id number] [address] Hematocrit (Bld) [Volume fraction] 37.9 % Low 39.0-51.0 [facility] Comment on above: Order Comment: Speci men Type: BLOOD SPECIMEN Performed By: #### 5 7021-8 ####[facility]ORATORYCLIA [id number] [address] Hemoglobin (Bld) [Mass/Vol] 11.5 g/dL Low 13.0-17.0 [facility] Comment on above: Order Comment: Speci men Type: BLOOD SPECIMEN Performed By: #### 5 7021-8 ####[facility]ORYCLIA [id number] [address] IMMATURE GRAN % 0.4 % Normal [facility] Comment on above: Order Comment: Speci men Type: BLOOD SPECIMEN Performed By: #### 5 7021-8 ####[facility]ATORYCLIA [id number] [address] IMMATURE GRAN ABS 0.03 k/uL Normal <0.10 [facility] Comment on above: Order Comment: Speci men Type: BLOOD SPECIMEN Performed By: #### 5 7021-8 ####[facility]ATORYCLIA [id number] [address] Lymphocytes (Bld) [#/Vol] 1.90 10*3/uL Normal 1.00-4.00 [facility] Comment on above: Order Comment: Speci men Type: BLOOD SPECIMEN Performed By: #### 5 7021-8 ####[facility]ATORYCLIA [id number] [address] Lymphocytes/100 WBC (Bld) 23.0 % Normal [facility] Comment on above: Order Comment: Speci men Type: BLOOD SPECIMEN Performed By: #### 5 7021-8 ####[facility]ATORYCLIA [id number] [address] MCH (RBC) [Entitic mass] 28.0 pg Normal 26.0-34.0 [facility] Comment on above: Order Comment: Speci men Type: BLOOD SPECIMEN Performed By: #### 5 7021-8 ####[facility]ATORYCLIA [id number] [address] MCHC (RBC) [Mass/Vol] 30.3 g/dL Low 30.5-36.0 [facility] Comment on above: Order Comment: Speci men Type: BLOOD SPECIMEN Performed By: #### 5 7021-8 ####[facility]ORYCLIA [id number] [address] STATES [facility] MCV (RBC) [Entitic vol] 92.4 fL Normal 80.0-100.0 [facility] Comment on above: Order Comment: Speci men Type: BLOOD SPECIMEN Performed By: #### 5 7021-8 ####[facility]ORYCLIA [id number] [address] [place] [facility] Monocytes (Bld) [#/Vol] 0.60 10*3/uL Normal <0.87 [facility] Comment on above: Order Comment: Speci men Type: BLOOD SPECIMEN Performed By: #### 5 7021-8 ####[facility] LABORATORYCLIA [id number] [address] Monocytes/100 WBC (Bld) 7.3 % Normal [facility] Comment on above: Order Comment: Speci men Type: BLOOD SPECIMEN Performed By: #### 5 7021-8 ####[facility] LABORATORYCLIA [id number] [address] [place] [facility] Neutrophils (Bld) [#/Vol] 5.41 10*3/uL Normal 1.45-7.50 [facility] Comment on above: Order Comment: Speci men Type: BLOOD SPECIMEN Performed By: #### 5 7021-8 ####[facility]ATORYCLIA [id number] [address] [place] Neutrophils/100 WBC (Bld) 65.5 % Normal [facility] Comment on above: Order Comment: Speci men Type: BLOOD SPECIMEN Performed By: #### 5 7021-8 ####[facility]ATORYCLIA [id number] [place] [address] [place] Nucleated RBC (Bld) [#/Vol] 10*3/uL Normal <0.01 [facility] Comment on above: Order Comment: Speci men Type: BLOOD SPECIMEN Performed By: #### 5 7021-8 ####[facility]ORYCLIA [id number] [address] Nucleated RBC/100 WBC (Bld) [Ratio] 0.0 /100 WBC Normal 0.0 [facility] Comment on above: Order Comment: Speci men Type: BLOOD SPECIMEN Performed By: #### 5 7021-8 ####[facility] LABORATORYCLIA [id number] [address] Platelet mean volume (Bld) [Entitic vol] 9.8 fL Normal 9.0-12.7 [facility] Comment on above: Order Comment: Speci men Type: BLOOD SPECIMEN Performed By: #### 5 7021-8 ####[facility]ATORYCLIA [id number] [address] Platelets (Bld) [#/Vol] 251 10*3/uL Normal 150-400 [facility] Comment on above: Order Comment: Speci men Type: BLOOD SPECIMEN Performed By: #### 5 7021-8 ####[facility]ORYCLIA [id number] [address] RBC (Bld) [#/Vol] 4.10 10*6/uL Low 4.20-6.00 [facility] Comment on above: Order Comment: Speci men Type: BLOOD SPECIMEN Performed By: #### 5 7021-8 ####[facility]ATORYCLIA [id number] [address] WBC (Bld) [#/Vol] 8.25 10*3/uL Normal 3.70-11.00 [facility] Comment on above: Order Comment: Speci men Type: BLOOD SPECIMEN Performed By: #### 5 7021-8 ####[facility]ORYCLIA [id number] [address] CONSULTon 01-25-2022 CONSULT Normal [facility] CONSULT [...] ug/dL Performed By: #### 2 143-6, 3016-3 ####[facility]ORATORYCLIA [id number] [address] Cryptoc Ag Spec Ql LAon 05-08 Cryptococcus sp Ag [place] Ql (Unsp spec) Negative Normal [facility] Comment on above: Performed By: #### 4 3228-6 ####[facility]ATORYCLIA [id number] [address] [facility] HISTORY PHYSICALon HISTORY PHYSICAL Normal [facility] Magnesium [Mass/Vol] 2.2 mg/dL Normal 1.7-2.3 [facility] Comment on above: Order Comment: Speci men Type: BLOOD SPECIMEN Performed By: #### 2 777-1, 18972-1, 60214-7 ####[facility]ORYCLIA [id number] [address] [place] NURSING PROGon 05-31-2021 NURSING PROG Normal [facility] NUTRITIONon 05-31-2021 NUTRITION Normal [facility] OPERATIVE NOon 05-31-2021 OPERATIVE NO Normal [facility] Phosphate SerPl-mCncon 05-31 Phosphate [Mass/Vol] 3.3 mg/dL Normal 2.7-4.8 [facility] Comment on above: Order Comment: Speci men Type: BLOOD SPECIMEN Performed By: #### 2 777-1, 98897-7, 71797-1 ####[facility]ORYCLIA [id number] [address] [facility] STAPH AUREUS PCRon S. aureus and MRSA panel MEGNA+probe (Nose) Normal Negative [facility] Comment on above: Order Comment: Speci men Type: SWAB OF INTERNAL NOSE Result Comment: Nega tive for Staphylococcus aureus by PCR.Negative for MRSA by PCR Performed By: #### S APCR ####[facility]ORYCLIA [id number] [address] [place] TSH SerPl-aCncon 05-31-2021 TSH Qn 0.829 m[IU]/L Normal 0.270-4.200 [facility] Comment on above: Order Comment: Speci men Type: BLOOD SPECIMEN Performed By: #### 2 143-6, 3016-3 ####[facility]ORYCLIA [id number] [address] [place] XR CHEST 1V FRONTALon 2021 XR CHEST 1V FRONTAL Normal [facility] XR CHEST 1V FRONTAL Normal [facility] Blood Cultureon 05-30-2021 Bacteria identified Cx Nom (Bld) Culture Result - No growth 5 days Normal [facility] Comment on above: Performed By: #### C AD #### [facility] [address] [place] [address] [facility] [address] [place] [address] Bacteria identified Cx Nom (Bld) Sp. Request/Comment: - 8.2MLS Culture Result - No growth 5 days Normal [facility] Comment on above: Performed By: #### C AD #### [facility] [address] [place] [address] [facility] [address] [place], [place] [address] C-Reactive Proteinon 022 C-Reactive Protein 1.7 mg/dL High <0.9 [facility] Comment on above: Performed By: #### C RP ####[facility] [address] [place] [phone] CNDSon 05-30-2021 CN HNO ID: [id number] Author: Columba Carroll PA-C Service: Hospital Medicine Author Type: Physician Channel Rebuilder Type: Discharge Summary Filed: 05/30/2021 12:49 PM [...] Team: Attending Provider: Ayaka Menjivar MD Physician Channel Rebuilder: Columba Carroll PA-C Consulting: Lilo Mendoza MD [...] consulted. Neurology suggested empiric abx coverage for STAFF DESIGN ENGINEER infection Rocephin and Vancomycin was started. Tele-neuro also suggested an MRI brain be obtained prior to LP to check CONTRACT NEGOTIATION SPECIALIST shunt and decrease risk of herniation in neurosurgery capable facility. Transfer to [facility] requested. Sepsis lactate was 1.3. ABG showed pO2 67.8, placed patient on 2L NC.Follow B1, B12, and RPR pending. Transitions of Care Critical Issues: - patient transferred for [facility] for management of possible STAFF DESIGN ENGINEER infection and herniation. LABS AND PROCEDURES PENDING [...] intravenously q 1 (more content not included)... [facility] CONSULTon 05-30-2021 CONSULT HNO ID: [id number] Author: Juan Carlos Mckenzie MD Service: Infectious [...] or shared electronic medical record. HPI: Andrew iSfuentes who is a 71 year old male [...] vertebrae with counting from the craniocervical junction. Consulting Actuary: OG Transcribe Date/Time: May 29 2021 8:59P Dictated by : CARLOS YOUNGER MD This examination was interpreted and the report reviewed and electronically signed by: CARLOS YOUNGER MD on May 29 2021 9:14PM EST ? CT CERVICAL SPINE WO (more content not included)... Normal [facility] CONSULT HNO ID: [id number] Author: Lilo Mendoza MD Service: Neurology General Author Type: Physician Type: Consults Filed: 05/30/2021 10:56 AM Note Text: [facility] TeleNeurology Consult Note Patient seen using [facility]. Recommendations are placed in the chart. Please review. For questions after hours, when teleneurologist is not available, for [place]: Please Page [phone] for the [facility] from 12pm to 8Am Admitting Provider/Consulted by:Hermes Roca MD Time of Note:05/30/2021 Patient Name:Andrew Sifuentes Admit Date:05/29/2021 Hospital Day:0 CC: altered mental status History of Present Illness: Andrew Sifuentes is a 71 year old unknown handed male with limited information about past medical history including venous insufficiency s/p EVLT, hydrocepalus s/p CONTRACT NEGOTIATION SPECIALIST shunt in 1987 with multiple revisions and [...] Reflexes Right Lef (more content not included)... [facility] CONSULT PROGon 05-30-2021 CONSULT PROG [facility] CONSULT PROG HNO ID: [id number] Author: Shannon Gutierres [facility]ly [facility] Service: Pharmacy Author Type: Pharmacist Type: Consult Progress Note Filed: 05/30/2021 2:35 PM Note Text: PHARMACY VANCOMYCIN DOSING NOTE Patient Name: Andrew Sifuentes Admission Date: 05/29/2021 Date of Consult: 05/30/2021 Time of Consult: 2:32 PM Indication: possible STAFF DESIGN ENGINEER infection Goal Range: 15-20 mcg/mL RECOMMENDATIONS/PLAN: Pharmacy [...] any questions, please contact inpatient pharmacy at [phone]. Age: [age] year old Allergies: ALLERGIES Allergen [...] No results found for: IMANI Gutierres [facility] Normal [facility] Creatinineon 05-30-2021 Creatinine [Mass/Vol] 0.86 mg/dL Normal 0.73-1.22 [facility] Comment on above: Performed By: #### C RET1 ####[facility] [address] [phone] eGFR- Amer. >60 Normal [facility] Comment on above: Performed By: #### C RET1 ####[facility] [address] [place] [phone] eGFR-All Other Races >60 Normal [facility] Comment on above: Result Comment: eGFR [...] at [email or web address]/[email or web address]. Performed By: #### C RET1 ####[facility] [address] [place] [phone] Crypto Antigen Deton 022 Crypto Antigen Det Sp. Request/Comment: - SST Test Result - Duplicate request Account Credited [facility] Comment on above: Performed By: #### C AD #### [facility] [address] [place] [address] Crypto Antigen Det Sp. Request/Comment: - SST Test Result - Cryptococcal antigen detection result: Negative By latex agglutination [facility] Comment on above: Performed By: #### C AD #### [facility] [address] [place] [address] [place] [phone] ED NOTEon 05-30-2021 ED NOTE HNO ID: [id number] Author: Aletha Lopez RN Service: ? Author Type: Registered Nurse Type: ED Notes Filed: 05/29/2021 11:16 PM Note Text: Patient changed for incontinent urine, labs redrawn and sent. Patient aware of plan to be admitted and agrees with plan [facility] HISTORY PHYSICALon HISTORY PHYSICAL Normal [facility] HISTORY PHYSICAL HNO ID: [id number] Author: Hermes Roca MD Service: Hospital Medicine Author Type: Physician Type: HANDP Filed: 05/30/2021 1:03 AM Note Text: DEPARTMENT OF HOSPITAL MEDICINE HISTORY AND PHYSICAL EXAM SERVICE DATE: 05/29/2021 SERVICE TIME: 11:18 PM Primary Care Physician: Mateus Burris MD NIGHT AND WEEKEND COVERAGE: Please page [phone] until 7:30am this morning. After 7:30am please check the treatment team banner and page the appropriate service. 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 Normal [facility] Magnesium SerPl-mCncon 05-30 Magnesium [Mass/Vol] 2.5 mg/dL High 1.7-2.3 [facility] Comment on above: Order Comment: Speci men Type: BLOOD SPECIMEN Performed By: #### 1 9123-9, 2777-1 ####[facility]ATORYCLIA [id number] [address] [facility] NURSING PROGon 05-30-2021 NURSING PROG HNO ID: [id number] Author: Precious Cervantes RN Service: ? Author Type: Registered Nurse Type: Nursing Progress Note Filed: 05/30/2021 11:26 AM Note Text: Nursing Progress Note Patient Name: Andrew Sifuentes Patient Location: [place] [address]/[id number] Daily Note: 0700- Report received from operations supervisor 2nd shift RN, patient resting in bed at this time, call light within reach, bed low and locked. Asked the patient to state his name because operations supervisor 2nd shift RN was unable to complete his [...] This note was completed by: Precious Cervantes [facility] NURSING PROG HNO ID: [id number] Author: Lyubov Day RN Service: ? Author Type: Registered Nurse Type: Nursing Progress Note Filed: 05/30/2021 1:27 AM Note Text: Nursing Progress Note Patient Name: Andrew Sifuentes Patient Location: [place] [address]/[place] [address] 0100: Patient is unresponsive to questions. Patient [...] This note was completed by: Lyubov Day [facility] Phosphate SerPl-mCncon 05-30 Phosphate [Mass/Vol] 3.5 mg/dL Normal 2.7-4.8 [facility] Comment on above: Order Comment: Speci men Type: BLOOD SPECIMEN Performed By: #### 1 9123-9, 2777-1 ####[facility]ORATORYCLIA [id number] [place] [address] [place] Sepsis Lactateon 05-30-2021 Sepsis Lactate 1.5 mmol/L Normal 0.5-2.0 [facility] Comment on above: Performed By: #### S LACT ####[facility] [address] [place] [phone] Syphilis Ttl w/Reflxon 05-30 Syphilis Interp Cannot exclude recen t Treponemal infection if specimen collected within 7 to 10 days after appearance of suspect lesions or 2 to 3 weeks after an exposure. Clinical correlation is required. Normal [facility] Comment on above: Performed By: #### S YPHTX, B1WB ####[facility] [address] [place], [place] [phone] Syphilis Screen Rslt Non-Reactive Normal Non Reactive [facility] Comment on above: Performed By: #### S YPHTX, B1WB ####[facility] [address] [place], [place] [phone] THERAPY NTon 05-30-2021 THERAPY NT HNO ID: [id number] Author: RADHA Andres/Felecia Service: Occupational Therapy Author Type: Occupational Therapist Type: Therapy (PT/OT/Speech/Resp) Filed: 05/30/2021 10:29 AM Note Text: OCCUPATIONAL THERAPY MISSED VISIT SERVICE DATE: 05/30/2021 SERVICE TIME: 1017 to 1019 ROOM: [place] [address] Attempted Evaluation. Patient not seen due to Not following commands. Per nursing patient was seen by neuro and they are talking about having him transferred to [facility] secondary to shunt concerns. Will re attempt in the event patient continues to be admitted at [facility] and is able to participate. SIGNATURE: RADHA Andres/Felecia PATIENT NAME: Andrew Sifuentes DATE: May 30, 2021 TIME: 10:21 AM [facility] THERAPY NT HNO ID: [id number] Author: Bette Velasquez PT Service: Physical Therapy Author Type: Physical Therapist Type: Therapy (PT/OT/Speech/Resp) Filed: 05/30/2021 8:42 AM Note Text: PHYSICAL THERAPY MISSED VISIT SERVICE DATE: 05/30/2021 SERVICE TIME: 0840 to 0840 ROOM: [place] [address] Attempted Evaluation. Patient not seen due to (pt difficult to awake per RN, very lethargic). Will re-attempt when schedule permits. SIGNATURE: Bette Velasquez, PT PATIENT NAME: Andrew Sifuentes DATE: May 30, 2021 TIME: 8:41 AM Normal [facility] Toxicology Screen,Uron 05-30 Amphetamines, Urine Negative Normal Negative [facility] Comment on above: Result Comment: Cuto ff threshold at 1000 ng/mL. Performed By: #### C AD #### [facility] [address] [place] [phone] [facility] [address] [place] [address] Barbiturates, Urine Negative Normal Negative [facility] Comment on above: Result Comment: Cuto ff threshold at 200 ng/mL. Performed By: #### C AD #### [facility] [address] [place] [id number] [facility] [address] [place] [phone] Benzodiazepines, Ur Negative Normal Negative [facility] Comment on above: Result Comment: Cuto ff threshold at 200 ng/mL. Performed By: #### C AD #### [facility] [address] [place] [phone] [facility] [address] [place] [phone] Cannabinoids, Urine Negative Normal Negative [facility] Comment on above: Result Comment: Cuto ff threshold at 50 ng/mL. Performed By: #### C AD #### [facility] [address] [place] [phone] [facility] [address] [place] [address] Cocaine, Urine Negative Normal Negative [facility] Comment on above: Result Comment: Cuto ff threshold at 300 ng/mL. Performed By: #### C AD #### [facility] [address] [place] [phone] [facility] [address] [place] [address] Opiates, Urine Negative Normal Negative [facility] Comment on above: Result Comment: Cuto ff threshold at 300 ng/mL. Performed By: #### C AD #### [facility] [address] [place] [phone] [place] [address] Oxycodone, Urine Negative Normal Negative [facility] Comment on above: Result Comment: [...] on the same specimen through Client Services ([phone]) if contacted within 48 hours of initial testing. [1]Substance Abuse and Mental Health Services Administration (2012). Clinical Drug Testing in Primary Care Technical Assistance Publication Series 32. Department of Health and Human Services, [place], p.10. Performed By: #### C AD #### [facility] [place] [phone] [place] [address] Phencyclidine, Urine Negative Normal Negative [facility] Comment on above: Result Comment: Cuto ff threshold at 25 ng/mL. Performed By: #### C AD #### [facility] [address] [place] [phone] [place] [phone] Troponin Ton 05-30-2021 Troponin T <0.010 Normal 0.000-0.029 [facility] Comment on above: Performed By: #### T NT ####[facility] [address] [place] [phone] Urinalysison 05-30-2021 Bilirubin, Urine Negative Normal Negative [facility] Comment on above: Performed By: #### C AD #### [facility] [address] [place] [address] [facility] [address] [place], [place] [address] Clarity (U) Slightly Cloudy Critically abnormal Clear [facility] Comment on above: Performed By: #### C AD #### [facility] [address] [place] [address] [facility] [address] [place], [place] [address] Color (U) Yellow Normal Yellow [facility] Comment on above: Performed By: #### C AD #### [facility] [address] [place] [address] [facility] [address] [place], [place] [address] Glucose Ql (U) Negative Normal Negative [facility] Comment on above: Performed By: #### C AD #### [facility] [address] [place] [address] [facility] [address] [place], [place] [address] Hemoglobin/Blood,Ur Negative Normal Negative [facility] Comment on above: Performed By: #### C AD #### [facility] [address] [place] [address] [facility] [address] [place], [place] [address] Ketones Ql (U) Negative Normal Negative [facility] Comment on above: Performed By: #### C AD #### [facility] [address] [place] [address] [facility] [address] [place], [place] [address] Leukest Negative Normal Negative [facility] Comment on above: Performed By: #### C AD #### [facility] [address] [place] [address] [facility] [address] [place], [place] [address] Nitrite Ql (U) Negative Normal Negative [facility] Comment on above: Performed By: #### C AD #### [facility] [place] [address] [place] [address] [place] [address] pH (U) 8.5 [pH] High 5.0-8.0 [facility] Comment on above: Performed By: #### C AD #### [facility] [address] [place], [place] [address] [place] [address] Protein, Urine Negative Normal Negative [facility] Comment on above: Performed By: #### C AD #### [facility] [address] [place], [place] [address] [place] [address] Specific [place], Ur 1.015 Normal 1.005-1.030 [facility] Comment on above: Performed By: #### C AD #### [facility] [address] [place], [place] [address] [place] [address] Urobilinogen Qn (U) 0.2 {Marianne'U}/dL Normal 0.2-1.0 [facility] Comment on above: Performed By: #### C AD #### [facility] [address] [place], [place] [address] [place] [address] Vitamin B1, Whole Blon 05-30 Vitamin B1 (TDP), WB 207.1 nmol/L Normal 84.0-213.0 [facility] Comment on above: Result Comment: This assay measures the concentration of thiamine diphosphate (TDP), the primary active form of vitamin B1. Approximately 90 percent of vitamin B1 present in whole blood is TDP. Thiamine and thiamine monophosphate, which comprise the remaining 10 percent, are not measured. This test was developed and its performance characteristics determined by [facility]'s [facility] [place] ([facility]). It has not been cleared or approved by the FDA. [facility] is regulated under CLIA as qualified to perform high complexity testing. This test is used for clinical purposes. It should not be regarded as investigational or for research. Performed By: #### S YPHTX, B1WB ####[facility] [address] [place], [place] [phone] Vitamin B12on 05-30-2021 Cobalamin (Vitamin B12) [Mass/Vol] 494 pg/mL Normal 232-1245 [facility] Comment on above: Performed By: #### C AD #### [facility] [address] [place] [address] [facility] [address] [place], [place] [address] ALLIED HEALTHon 05-29-2021 ALLIED HEALTH HNO ID: [id number] Author: RT Kitty(R) Service: Radiology Author Type: [...] Kitty(R) May 29, 2021 8:51 PM Normal [facility] ALLIED HEALTH HNO ID: [id number] Author: Markie Fish Service: ? Author Type: Restaurant And Bar Manager Type: Allied Health Filed: 05/29/2021 8:39 [...] Fish May 29, 2021 8:38 PM Normal [facility] CBC and Differentialon 05-29 Abs Baso 0.05 k/uL Normal <0.11 [facility] Comment on above: Performed By: #### C MP, MG1, CBCDIF ####[facility] [address] [place] [address] Abs [place] 0.72 k/uL Normal <0.87 [facility] Comment on above: Performed By: #### C MP, MG1, CBCDIF ####[facility] [address] [place] [address] Abs Neut 7.86 k/uL High 1.45-7.50 [facility] Comment on above: Performed By: #### C MP, MG1, CBCDIF ####[facility] [address] [place] [address] Absolute nRBC <0.01 Normal <0.01 [facility] Comment on above: Performed By: #### C MP, MG1, CBCDIF ####[place] [address] Basophils/100 WBC (Bld) 0.5 % Normal [facility] Comment on above: Performed By: #### C MP, MG1, CBCDIF ####[facility] [address] [place] [address] DTYPE Auto Diff Normal [facility] Comment on above: Performed By: #### C MP, MG1, CBCDIF ####[place] [address] Eosinophils (Bld) [#/Vol] 0.10 10*3/uL Normal <0.46 [facility] Comment on above: Performed By: #### C MP, MG1, CBCDIF ####[facility] [address] [place] [address] Eosinophils/100 WBC (Bld) 0.9 % Normal [facility] Comment on above: Performed By: #### C MP, MG1, CBCDIF ####[facility] [address] [place] [address] Erythrocyte distribution width (RBC) [Ratio] 15.5 % High 11.5-15.0 [facility] Comment on above: Performed By: #### C MP, MG1, CBCDIF ####[facility] [address] [place] [address] Hematocrit (Bld) [Volume fraction] 41.6 % Normal 39.0-51.0 [facility] Comment on above: Performed By: #### C MP, MG1, CBCDIF ####[facility] [address] [place] [address] Hemoglobin (Bld) [Mass/Vol] 12.7 g/dL Low 13.0-17.0 [facility] Comment on above: Performed By: #### C MP, MG1, CBCDIF ####[facility] [address] [place] [address] Lymphocytes (Bld) [#/Vol] 2.04 10*3/uL Normal 1.00-4.00 [facility] Comment on above: Performed By: #### C MP, MG1, CBCDIF ####[facility] [address] [place] [address] Lymphocytes/100 WBC (Bld) 18.9 % Normal [facility] Comment on above: Performed By: #### C MP, MG1, CBCDIF ####[facility] [address] [place] [address] MCH 27.3 pG Normal 26.0-34.0 [facility] Comment on above: Performed By: #### C MP, MG1, CBCDIF ####[facility] [address] [place] [address] MCHC (RBC) [Mass/Vol] 30.5 g/dL Normal 30.5-36.0 [facility] Comment on above: Performed By: #### C MP, MG1, CBCDIF ####[facility] [address] [place] [phone] MCV (RBC) [Entitic vol] 89.5 fL Normal 80.0-100.0 [facility] Comment on above: Performed By: #### C MP, MG1, CBCDIF ####[facility] [address]ts[phone] Monocytes/100 WBC (Bld) 6.7 % Normal [facility] Comment on above: Performed By: #### C MP, MG1, CBCDIF ####[facility] [address] [place], [place] [phone] Neutrophils/100 WBC (Bld) 73.0 % Normal [facility] Comment on above: Performed By: #### C MP, MG1, CBCDIF ####[facility] [address] [place] [address] NRBCs 0.0 /100 WBC Normal 0 [facility] Comment on above: Performed By: #### C MP, MG1, CBCDIF ####[facility] [address] [place], [place] [phone] Platelet mean volume (Bld) [Entitic vol] 10.1 fL Normal 9.0-12.7 [facility] Comment on above: Performed By: #### C MP, MG1, CBCDIF ####[facility] [address] [place], [place] [phone] Platelets (Bld) [#/Vol] 291 10*3/uL Normal 150-400 [facility] Comment on above: Performed By: #### C MP, MG1, CBCDIF ####[facility] [address] [place], [place] [phone] RBC (Bld) [#/Vol] 4.65 10*6/uL Normal 4.20-6.00 [facility] Comment on above: Performed By: #### C MP, MG1, CBCDIF ####[facility] [address] [place], [place] [phone] WBC (Bld) [#/Vol] 10.77 10*3/uL Normal 3.70-11.00 [facility] Comment on above: Performed By: #### C MP, MG1, CBCDIF ####[facility] [address] [place], [place] [phone] CT BRAIN WO IVCONon 05-29-19 CT BRAIN WO IVCON * * *Final Report* * * DATE OF EXAM: May 29 2021 8:42PM [facility] [id number] - CT BRAIN WO IVCON / PROCEDURE REASON: Head trauma, headache * * * * Physician Interpretation * * * * EXAMINATION: CT CERVICAL SPINE WO IVCON, CT BRAIN WO IVCON CLINICAL HISTORY: C-spine trauma, NEXUS/CCR positive (accession [id number]), Head trauma, headache (accession [id number]) TECHNIQUE: Serial axial unenhanced images were obtained from the vertex to the foramen magnum. Spiral, high resolution axial unenhanced images were obtained from the skull base to the cervicothoracic junction with sagittal and coronal planar reconstructions. Dose-Length Product (DLP): 2132 mGy*cm. CT Dose Reduction Employed: Automated exposure control (AEC) COMPARISON: 08/13/[address] RESULT: BRAIN: Post-operative change: Right parietal approach [employer] NE[employer]IATION SPECIALIST shunt is intact. The intracranial fragments of [...] vertebrae with counting from the craniocervical junction. Consulting Actuary: PSCB Transcribe Date/Time: May 29 2021 8:59P Dictated by : CARLOS YOUNGER MD This examination was interpreted and the report reviewed and electronically signed by: CARLOS YOUNGER MD on May 29 2021 9:14PM EST [id number] [facility] CT CERVICAL SPINE WO IVCONon 05-29-2021 CT CERVICAL SPINE WO IVCON * * *Final Report* * * DATE OF EXAM: May 29 2021 8:42PM [facility] [id number] - CT CERVICAL SPINE WO IVCON / PROCEDURE REASON: C-spine trauma, NEXUS/CCR positive * * * * Physician Interpretation * * * * EXAMINATION: CT CERVICAL SPINE WO IVCON, CT BRAIN WO IVCON CLINICAL HISTORY: C-spine trauma, NEXUS/CCR positive (accession [id number]), Head trauma, headache (accession [id number]) TECHNIQUE: Serial axial unenhanced images were obtained from the vertex to the foramen magnum. Spiral, high resolution axial unenhanced images were obtained from the skull base to the cervicothoracic junction with sagittal and coronal planar reconstructions. Dose-Length Product (DLP): 2132 mGy*cm. CT Dose Reduction Employed: Automated exposure control (AEC) COMPARISON: 08/13/[address] RESULT: BRAIN: Post-operative change: Right parietal approach CONTRACT NEGOTIATION SPECIALIST shunt is intact. The intracranial fragments of [...] vertebrae with counting from the craniocervical junction. Consulting Actuary: PSCB Transcribe Date/Time: May 29 2021 8:59P Dictated by : CARLOS YOUNGER MD This examination was interpreted and the report reviewed and electronically signed by: CARLOS YOUNGER MD on May 29 2021 9:14PM EST [id number] Normal [facility] Cepheid Bill only (EXCFR)on 05-29-2021 Cepheid Bill only (EXCFR) Billed for services performed Normal [facility] Comment on above: Performed By: #### C AD #### [facility] [address] [place] [address] [facility] [address] [place], [place] [address] Comp Metabolic Panelon 05-29 Albumin [Mass/Vol] 4.1 g/dL Normal 3.9-4.9 [facility] Comment on above: Performed By: #### C MP ####[facility] [address] [place] [address] ALP [Catalytic activity/Vol] 86 U/L Normal 38-113 [facility] Comment on above: Performed By: #### C MP ####[facility] [address] [place] [address] ALT [Catalytic activity/Vol] 15 U/L Normal 10-54 [facility] Comment on above: Performed By: #### C MP ####[facility] [address] [place] [address] Anion gap [Moles/Vol] 9 mmol/L Normal 9-18 [facility] Comment on above: Performed By: #### C MP ####[facility] [address] [place] [address] AST [Catalytic activity/Vol] 22 U/L Normal 14-40 [facility] Comment on above: Performed By: #### C MP ####[facility] [address] [place] [address] Bilirubin [Mass/Vol] 0.2 mg/dL Normal 0.2-1.3 [facility] Comment on above: Performed By: #### C MP ####[facility] [address] [place] [address] Calcium [Mass/Vol] 9.1 mg/dL Normal 8.5-10.2 [facility] Comment on above: Performed By: #### C MP ####[facility] [address] [place] [address] Chloride [Moles/Vol] 103 mmol/L Normal 97-105 [facility] Comment on above: Performed By: #### C MP ####[facility] [address] [place] [address] CO2 [Moles/Vol] 29 mmol/L Normal 22-30 [facility] Comment on above: Performed By: #### C MP ####[facility] [address] [place] [address] Creatinine [Mass/Vol] 0.89 mg/dL Normal 0.73-1.22 [facility] Comment on above: Performed By: #### C MP ####[facility] [address] [place] [address] eGFR- Amer. >60 Normal [facility] Comment on above: Performed By: #### C MP ####[facility] [address] [place] [address] eGFR-All Other Races >60 Normal [facility] Comment on above: Result Comment: eGFR [...] at [email or web address]. Performed By: #### C MP ####[facility] [address] [place] [address] Glucose [Mass/Vol] 120 mg/dL High 74-99 [facility] Comment on above: Result Comment: The [place] Diabetes Association (ADA) provides guidance for cutoff [...] Standards of Medical Care in Diabetes 2016, [place] [employer] Association. Diabetes Care. 2016.39(Suppl 1). Performed By: #### C MP ####[facility] [address] [place] [address] Potassium [Moles/Vol] 4.2 mmol/L Normal 3.7-5.1 [facility] Comment on above: Performed By: #### C MP ####[facility] [address] [place] [address] Protein [Mass/Vol] 7.1 g/dL Normal 6.3-8.0 [facility] Comment on above: Performed By: #### C MP ####[facility] [address] [place] [address] Sodium [Moles/Vol] 141 mmol/L Normal 136-144 [facility] Comment on above: Performed By: #### C MP ####[facility] [address] [place] [address] Urea nitrogen [Mass/Vol] 11 mg/dL Normal 9-24 [facility] Comment on above: Performed By: #### C MP ####[facility] [address] [place] [address] Albumin [Mass/Vol] 4.1 g/dL Normal 3.9-4.9 [facility] Comment on above: Performed By: #### C MP, MG1, CBCDIF ####[facility] [address] [place] [address] ALP [Catalytic activity/Vol] 86 U/L Normal 38-113 [facility] Comment on above: Performed By: #### C MP, MG1, CBCDIF ####[facility] [address] [place] [address] ALT Unable to assay due to interference from hemolysis. Suggest reorder as clinically indicated. Normal 10-54 [facility] Comment on above: Result Comment: Call ed to ED StephanLubna at 2128 on 05.29.21 by Sabino Performed By: #### C MP, MG1, CBCDIF ####[facility] [address] [place] [address] Anion gap [Moles/Vol] 12 mmol/L Normal 9-18 [facility] Comment on above: Performed By: #### C MP, MG1, CBCDIF ####[facility] [address] [place] [address] AST Unable to assay due to interference from hemolysis. Suggest reorder as clinically indicated. Normal 14-40 [facility] Comment on above: Result Comment: Call ed to ED Álvaro at 2128 on 05.29.21 by Sabino Performed By: #### C MP, MG1, CBCDIF ####[facility] [address] [place] [address] Bilirubin [Mass/Vol] 0.2 mg/dL Normal 0.2-1.3 [facility] Comment on above: Performed By: #### C MP, MG1, CBCDIF ####[facility] [address] [place] [address] Calcium [Mass/Vol] 9.0 mg/dL Normal 8.5-10.2 [facility] Comment on above: Performed By: #### C MP, MG1, CBCDIF ####[facility] [address] [place] [address] Chloride [Moles/Vol] 102 mmol/L Normal 97-105 [facility] Comment on above: Performed By: #### C MP, MG1, CBCDIF ####[facility] [address] [place] [address] CO2 [Moles/Vol] 27 mmol/L Normal 22-30 [facility] Comment on above: Performed By: #### C MP, MG1, CBCDIF ####[facility] [address] [place] [address] Creatinine [Mass/Vol] 0.75 mg/dL Normal 0.73-1.22 [facility] Comment on above: Performed By: #### C MP, MG1, CBCDIF ####[facility] [address] [place] [address] eGFR- Amer. >60 Normal [facility] Comment on above: Performed By: #### C MP, MG1, CBCDIF ####[facility] [address] [place] [address] eGFR-All Other Races >60 Normal [facility] Comment on above: Result Comment: eGFR [...] Performed By: #### C MP, MG1, CBCDIF ####[facility] [address] [place] [address] Glucose [Mass/Vol] 112 mg/dL High 74-99 [facility] Comment on above: Result Comment: The [place] Diabetes Association (ADA) provides guidance for cutoff [...] Standards of Medical Care in Diabetes 2016, [place] Diabetes Association. Diabetes Care. 2016.39(Suppl 1). Performed By: #### C MP, MG1, CBCDIF ####[facility] [address] [place] [address] Potassium Unable to assay due to interference from hemolysis. Suggest reorder as clinically indicated. Normal 3.7-5.1 [facility] Comment on above: Result Comment: Call ed to ED Álvaro at 2129 on 05.29.21 by Sabino Performed By: #### C MP, MG1, CBCDIF ####[facility] [address] [place] [address] Protein [Mass/Vol] 7.3 g/dL Normal 6.3-8.0 [facility] Comment on above: Performed By: #### C MP, MG1, CBCDIF ####[facility] [address] [place] [address] Sodium [Moles/Vol] 141 mmol/L Normal 136-144 [facility] Comment on above: Performed By: #### C MP, MG1, CBCDIF ####[facility] [address] [place] [id number] Urea nitrogen [Mass/Vol] 11 mg/dL Normal 9-24 [facility] Comment on above: Performed By: #### C MP, MG1, CBCDIF ####[facility] [address] [place] [id number] ED PROV NOTEon 05-29-2021 ED PROV NOTE HNO ID: [id number] Author: Shanell Slaughter MD Service: ? Author [...] No radiographic evidence of acute cardiopulmonary disease. Consulting Actuary: OG Transcribe Date/Time: May 29 2021 8:53P [...] vertebrae with counting from the craniocervical junction. Consulting Actuary: OG Transcribe Date/Time: May 29 2021 8:59P [...] vertebrae with counting from the craniocervical junction. Consulting Actuary: OG Transcribe Date/Time: May 29 (more content not included)... 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 Provider Location: [facility] Patient Location: Outpatient [facility] Physical Exam [...] Flavio Pandya, DO Flavio Pandya, 05/29/211909 Normal [facility] EXCOVD, Flu A/B, RSV (On int erfaces 1102,1120)on 05-29-2021 Influenza A PCR Negative [facility] Comment on above: Performed By: #### C AD #### [facility] [address] [place] [address] Influenza B PCR Negative [facility] Comment on above: Performed By: #### C AD #### [facility] [address] [place], [place] [id number] [place] [address] RSV PCR Negative [facility] Comment on above: Result Comment: This test has been authorized by FDA under an Emergency Use Authorization (EUA). Performed By: #### C AD #### [facility] [address] [place], [place] [id number] [place] [address] SARS-CoV-2 (COVID-19) RNA MEGAN+probe Ql (Unsp spec) UPPER RESPIRATORY TRACT SWAB Normal [facility] Comment on above: Performed By: #### C AD #### [facility] [address] [place], [place] [id number] [place] [address] SARS-CoV-2 (COVID-19) RNA MEGAN+probe Ql (Unsp spec) Negative for COVID19 (SARS CoV2) by RT-PCR or equivalent method. Normal Negative for COVID19 (SARS CoV2) by RT-PCR or equivalent method. [facility] Comment on above: Result Comment: This test has been authorized by FDA under an Emergency Use Authorization (EUA). Performed By: #### C AD #### [facility] [address] [place] [address] [facility] [address] [place], [place] [address] Magnesiumon 05-29-2021 Magnesium [Mass/Vol] 2.2 mg/dL Normal 1.7-2.3 [facility] Comment on above: Performed By: #### C MP, MG1, CBCDIF ####[facility] [address]ff[address] NT Pro BNPon 05-29-2021 PRO B Natr Peptide 303 pg/mL High <125 [facility] Comment on above: Performed By: #### N TBNP ####[facility] [address] Troponin Ton 05-29-2021 Troponin T <0.010 Normal 0.000-0.029 [facility] Comment on above: Performed By: #### T NT ####[facility] [address] [place] [address] Troponin T Unable to assay due to interference from hemolysis. Suggest reorder as clinically indicated. Normal 0.000-0.029 [facility] Comment on above: Result Comment: Call ed to ED Álvaro at 2129 on 05.29.21 by Sabino Performed By: #### T NT ####[facility] [address] [place] [id number] XR CHEST 1V FRONTAL PORTon 0 05-29-2021 [...] No radiographic evidence of acute cardiopulmonary disease. Consulting Actuary: PSCShilpa Transcribe Date/Time: May 29 2021 8:53P Dictated by : ROLY BANGURA MD This examination was interpreted and the report reviewed and electronically signed by: ROLY BANGURA MD on May 29 2021 8:54PM EST [id number] Normal [facility] 2020 Albumin [Mass/Vol] 3.9 g/dL Normal 3.4 - 5.0 [facility] Comment on above: Order Comment: PATIE NT FASTING Performed By: #### C MP #### [facility] [address] [place] [address] ALP [Catalytic activity/Vol] 71 U/L Normal 33 - 136 [facility] Comment on above: Order Comment: PATIE NT FASTING Performed By: #### C MP #### [facility] [address] [place] [address] ALT [Catalytic activity/Vol] 19 U/L Normal 10 - 52 [facility] Comment on above: Order Comment: PATIE NT FASTING Result Comment: Nasima ents treated with Sulfasalazine may generate falsely decreased results for ALT. Performed By: #### C MP #### [facility] [address] [place] [address] Anion gap [Moles/Vol] 13 mmol/L Normal 10 - 20 [facility] Comment on above: Order Comment: PATIE NT FASTING Performed By: #### C MP #### [facility] [address] [place] [address] AST [Catalytic activity/Vol] 20 U/L Normal 9 - 39 [facility] Comment on above: Order Comment: PATIE NT FASTING Performed By: #### C MP #### [facility] [address] [place] [address] Bilirubin [Mass/Vol] 0.6 mg/dL Normal 0.0 - 1.2 [facility] Comment on above: Order Comment: PATIE NT FASTING Performed By: #### C MP #### [facility] [address] [place] [address] Calcium [Mass/Vol] 9.0 mg/dL Normal 8.6 - 10.6 [facility] Comment on above: Order Comment: PATIE NT FASTING Performed By: #### C MP #### [facility] [address] [place] [address] Chloride [Moles/Vol] 103 mmol/L Normal 98 - 107 [facility] Comment on above: Order Comment: PATIE NT FASTING Performed By: #### C MP #### [facility] [address] [place] [address] Creatinine [Mass/Vol] 0.94 mg/dL Normal 0.50 - 1.30 [facility] Comment on above: Order Comment: PATIE NT FASTING Performed By: #### C MP #### [facility] [address] [place] [address] GFR- AM. >60 Normal >60 [facility] Comment on above: Order Comment: PATIE NT FASTING Result Comment: CALC ULATIONS OF ESTIMATED GFR ARE PERFORMED USING THE MDRD STUDY EQUATION FOR THE IDMS-TRACEABLE CREATININE METHODS. CLIN CHEM 2007;53:766-72 Performed By: #### C MP #### [facility] [address] [place] [address] GFR-NON AM. >60 Normal >60 [facility] Comment on above: Order Comment: PATIE NT FASTING Performed By: #### C MP #### [facility] [address] [place] [address] Glucose [Mass/Vol] 85 mg/dL Normal 74 - 99 [facility] Comment on above: Order Comment: PATIE NT FASTING Performed By: #### C MP #### [facility] [address] [place] [address] HCO3 (Bld) [Moles/Vol] 30 mmol/L Normal 21 - 32 [facility] Comment on above: Order Comment: PATIE NT FASTING Performed By: #### C MP #### [facility] [address] [place] [address] Potassium [Moles/Vol] 4.1 mmol/L Normal 3.5 - 5.3 [facility] Comment on above: Order Comment: PATIE NT FASTING Performed By: #### C MP #### [facility] [address] [place] [address] Protein [Mass/Vol] 6.6 g/dL Normal 6.4 - 8.2 [facility] Comment on above: Order Comment: PATIE NT FASTING Performed By: #### C MP #### [facility] [address] [place] [address] Sodium [Moles/Vol] 142 mmol/L Normal 136 - 145 [facility] Comment on above: Order Comment: PATIE NT FASTING Performed By: #### C MP #### [facility] [address] [place] [address] Urea nitrogen [Mass/Vol] 14 mg/dL Normal 6 - 23 [facility] Comment on above: Order Comment: PATIE NT FASTING Performed By: #### C MP #### [facility] [address] [place] [address] LIPID PANEL (CORONARY RISK 2 )on 09-03-2020 Cholesterol [Mass/Vol] 210 mg/dL High 0 - 199 [facility] Comment on above: Order Comment: PATIE NT [...] dosing. Performed By: #### L IPID #### [facility] [address] [place] [address] Cholesterol in HDL [Mass/Vol] 50.1 mg/dL Normal [facility] Comment on above: Order Comment: PATIE NT FASTING Result Comment: . AGE VERY LOW LOW NORMAL HIGH 0-19 Y < 35 < 40 40-45 ---- 20-24 Y ---- < 40 >45 ---- >24 Y ---- < 40 40-60 >60 . Performed By: #### L IPID #### [facility] [address] [place] [address] Cholesterol in LDL [Mass/Vol] 130 mg/dL High 0 - 99 [facility] Comment on above: Order Comment: PATIE NT FASTING Result Comment: . NEAR BORD AGE DESIRABLE OPTIMAL HIGH HIGH VERY HIGH 0-19 Y 0 - 109 --- 110-129 >/= 130 ---- 20-24 Y 0 - 119 --- 120-159 >/= 160 ---- >24 Y 0 - 99 100-129 130-159 160-189 >/=190 . Performed By: #### L IPID #### [facility] [address] [place] [address] Cholesterol in VLDL [Mass/Vol] 30 mg/dL Normal 0 - 40 [facility] Comment on above: Order Comment: PATIE NT FASTING Performed By: #### L IPID #### [facility] [address] [place] [address] Cholesterol.total/Chol esterol in HDL [Mass ratio] 4.2 {ratio} Normal [facility] Comment on above: Order Comment: PATIE NT FASTING Result Comment: REF VALUES DESIRABLE < 3.4 HIGH RISK > 5.0 Performed By: #### L IPID #### [facility] [address] [place] [address] Triglyceride [Mass/Vol] 152 mg/dL High 0 - 149 [facility] Comment on above: Order Comment: PATIE NT [...] dosing. Performed By: #### L IPID #### [facility] [address] [place] [address] PROSTATE SPEC.AG,SCREENon PROSTATE SPEC.AG,SCREEN 0.37 ng/mL Normal 0.00 - 4.00 [facility] Comment on above: Order Comment: PATIE NT FASTING Result Comment: The FDA requires that the method used for PSA assay be reported to the physician. Values obtained with different assay methods must not be used interchangeably. This test was performed at [facility] using the Siemens HumancollOffermatica PSA method, which is a sandwich immunoassay using chemiluminescence for quantitation. The assay is approved for measurement of prostate-specific antigen (PSA) in serum and may be used in conjunction with a digital rectal examination in men 50 years and older as an aid in detection of prostate cancer. 3-Sybjr-soraotdon inhibitors (e.g. Proscar, Finasteride, Avodart, Dutasteride and Elizabeth) for the treatment of BPH have been shown to lower PSA levels by an average of 50% after 6 months of treatment. Performed By: #### P SASC #### [facility] [address] [place] [address] TSH WITH REFLEX TO FREE T4 I F ABNORMALon 09-03-2020 TSH Qn 0.97 m[IU]/L Normal 0.44 - 3.98 [facility] Comment on above: Order Comment: PATIE NT FASTING Result Comment: TSH testing is performed using different testing methodology at [facility] than at other [facility]. Direct result comparisons should only be made within the same method. Performed By: #### T HYDS #### [facility] [address] [place] [address] CBC AND DIFFERENTIALon 09-02 % AUTOMATED IMMATURE GRAN 0.3 % Normal 0.0 - 0.9 [facility] Comment on above: Order Comment: PATIE NT FASTING Result Comment: [place] ture Granulocyte Count (IG) includes promyelocytes, myelocytes and metamyelocytes but does not include bands. Percent differential counts (%) should be interpreted in the context of the absolute cell counts (cells/L). Performed By: #### C BCDF #### [facility] [address] [place] [address] Basophils (Bld) [#/Vol] 0.07 10*3/uL Normal 0.00 - 0.10 [facility] Comment on above: Order Comment: PATIE NT FASTING Result Comment: Auto mated WBC differential has been confirmed by manual smear. Performed By: #### C BCDF #### [facility] [address] [place] [address] Basophils/100 WBC (Bld) 0.9 % Normal 0.0 - 2.0 [facility] Comment on above: Order Comment: PATIE NT FASTING Performed By: #### C BCDF #### [facility] [address] [place] [address] Eosinophils (Bld) [#/Vol] 0.21 10*3/uL Normal 0.00 - 0.70 [facility] Comment on above: Order Comment: PATIE NT FASTING Performed By: #### C BCDF #### [facility] [address] [place] [address] Eosinophils/100 WBC (Bld) 2.8 % Normal 0.0 - 6.0 [facility] Comment on above: Order Comment: PATIE NT FASTING Performed By: #### C BCDF #### [facility] [address] [place] [address] Lymphocytes (Bld) [#/Vol] 2.28 10*3/uL Normal 1.20 - 4.80 [facility] Comment on above: Order Comment: PATIE NT FASTING Performed By: #### C BCDF #### [facility] [address] [place] [address] Lymphocytes/100 WBC (Bld) 30.9 % Normal 13.0 - 44.0 [facility] Comment on above: Order Comment: PATIE NT FASTING Performed By: #### C BCDF #### [facility] [address] [place] [address] Monocytes (Bld) [#/Vol] 0.50 10*3/uL Normal 0.10 - 1.00 [facility] Comment on above: Order Comment: PATIE NT FASTING Performed By: #### C BCDF #### [facility] [address] [place] [address] Monocytes/100 WBC (Bld) 6.8 % Normal 2.0 - 10.0 [facility] Comment on above: Order Comment: PATIE NT FASTING Performed By: #### C BCDF #### [facility] [address] [place] [address] Neutrophils (Bld) [#/Vol] 4.29 10*3/uL Normal 1.20 - 7.70 [facility] Comment on above: Order Comment: PATIE NT FASTING Performed By: #### C BCDF #### [facility] [address] [place] [address] Neutrophils/100 WBC (Bld) 58.3 % Normal 40.0 - 80.0 [facility] Comment on above: Order Comment: PATIE NT FASTING Performed By: #### C BCDF #### [facility] [address] [place] [address] Erythrocyte distribution width (RBC) [Ratio] 14.6 % High 11.5 - 14.5 [facility] Comment on above: Order Comment: PATIE NT FASTING Performed By: #### C BCDF #### [facility] [address] [place] [address] Hematocrit (Bld) [Volume fraction] 43.1 % Normal 41.0 - 52.0 [facility] Comment on above: Order Comment: PATIE NT FASTING Performed By: #### C BCDF #### [facility] [address] [place] [address] Hemoglobin (Bld) [Mass/Vol] 13.3 g/dL Low 13.5 - 17.5 [facility] Comment on above: Order Comment: PATIE NT FASTING Performed By: #### C BCDF #### [facility] [address] [place] [address] MCHC (RBC) [Mass/Vol] 30.9 g/dL Low 32.0 - 36.0 [facility] Comment on above: Order Comment: PATIE NT FASTING Performed By: #### C BCDF #### [facility] [address] [place] [address] MCV (RBC) [Entitic vol] 92 fL Normal 80 - 100 [facility] Comment on above: Order Comment: PATIE NT FASTING Performed By: #### C BCDF #### [facility] [address] [place] [address] NUCLEATED RBC 0.0 /100 WBC Normal 0.0-0.0 [facility] Comment on above: Order Comment: PATIE NT FASTING Performed By: #### C BCDF #### [facility] [address] [place] [address] Platelets (Bld) [#/Vol] 267 10*3/uL Normal 150 - 450 [facility] Comment on above: Order Comment: PATIE NT FASTING Performed By: #### C BCDF #### [facility] [address] [place] [address] RBC 4.69 x10E12/L Normal 4.50 - 5.90 [facility] Comment on above: Order Comment: PATIE NT FASTING Performed By: #### C BCDF #### [facility] [address] [place] [address] WBC (Bld) [#/Vol] 7.4 10*3/uL Normal 4.4 - 11.3 [facility] Comment on above: Order Comment: PATIE NT FASTING Performed By: #### C BCDF #### [facility] [address] [place] [address] RED CELL MORPHOLOGYon 2020 CHANELL CELLS Few Normal [facility] Comment on above: Order Comment: PATIE NT FASTING Performed By: #### M ORP2 #### [facility] [address] [place] [address] OVALOCYTES Few Normal [facility] Comment on above: Order Comment: PATIE NT FASTING Performed By: #### M ORP2 #### [facility] [address] [place] [address] POLYCHROMASIA Mild Normal [facility] Comment on above: Order Comment: PATIE NT FASTING Performed By: #### M ORP2 #### [facility] [address] [place] [address] RBC FRAGMENTS Few Normal [facility] Comment on above: Order Comment: PATIE NT FASTING Performed By: #### M ORP2 #### [facility] [address] [place] [address] RBC morphology finding Nom (Bld) See Below Normal [facility] Comment on above: Order Comment: PATIE NT FASTING Performed By: #### M ORP2 #### [facility] [address] [place] [address] No Panel Informationon 01-19 76 1 [facility]-Cardiolo [...] [place] Work Phone: [email or web address] ?RetrieveTestByDateTime?[email or web address] glelgoCN=[email or web address]&Date=1 09-13-2019&Time=15%3a11%3a 03%3a00&TestType=ECG&Site =1&OutputType=PDF&Ext=PDF [facility]iolo gy-[facility] [place] Work Phone: Otheron 11-13-2019 [facility] Complete Blood Count + Diffe [...] (Bld) [#/Vol] 7.2 {x10E9/L} 4.4 - 11.3 [facility] Work Phone: Complete Blood Count + Differential 0.1 % 0.0 - 0.9 [facility] Work Phone: Comment on above: Immature Granulocyte Count (IG) includes promyelocytes, myelocytes and metamyelocytes but does not include bands. Percent differential counts (%) should be interpreted in the context of the absolute cell counts (cells/L). Lipid Panelon 11-06-2019 Cholesterol [Mass/Vol] 181 mg/dL 0 - 199 [facility] Work Phone: Comment on above: . AGE [...] dosing. Cholesterol in HDL [Mass/Vol] 52.1 mg/dL [facility] Work Phone: Comment on above: . AGE VERY LOW LOW N ORMAL HIGH 0-19 Y < 35 < 40 40-45 ---- 20-24 Y ---- < 40 >45 ---- >24 Y ---- < 40 40-60 >60. Cholesterol in LDL [Mass/Vol] 97 mg/dL 0 - 99 [facility] Work Phone: Comment on above: . NEAR BORD AGE IZABELLA RABLE OPTIMAL HIGH HIGH VERY HIGH 0-19 Y 0 - 109 --- 110-129 >/= 130 ---- 20-24 Y 0 - 119 --- 120-159 >/= 160 ---- >24 Y 0 - 99 100-129 130-159 160-189 >/=190. Cholesterol.total/Chol esterol in HDL [Mass ratio] 3.5 {ratio} [facility] Work Phone: Comment on above: REF VALUESDESIRABLE < 3.4HIGH RISK > 5.0 Triglyceride [Mass/Vol] 158 mg/dL above high threshold 0 - 149 [facility] Work Phone: Comment on above: . [...] Lipid Panel 32 mg/dL 0 - 40 [facility] Work Phone: Metabolic Panelon 11-06-2019 ALP [Catalytic activity/Vol] 70 U/L 33 - 136 [facility] Work Phone: Anion gap [Moles/Vol] 13 mmol/L 10 - 20 [facility] Work Phone: Bilirubin [Mass/Vol] 0.6 mg/dL 0.0 - 1.2 [facility] Work Phone: Calcium [Mass/Vol] 9.4 mg/dL 8.6 - 10.6 [facility] Work Phone: Chloride [Moles/Vol] 99 mmol/L 98 - 107 [facility] Work Phone: CO2 [Moles/Vol] 30 mmol/L 21 - 32 [facility] Work Phone: Creatinine [Mass/Vol] 0.87 mg/dL See Below [facility] Work Phone: Comment on above: Reference Range: 0.5 0 - 1.30 Glucose [Mass/Vol] 89 mg/dL 74 - 99 [facility] Work Phone: Potassium [Moles/Vol] 4.3 mmol/L 3.5 - 5.3 [facility] Work Phone: Protein [Mass/Vol] 7.3 g/dL 6.4 - 8.2 [facility] Work Phone: Sodium [Moles/Vol] 138 mmol/L 136 - 145 [facility] Work Phone: Urea nitrogen [Mass/Vol] 14 mg/dL 6 - 23 [facility] Work Phone: Otheron 11-06-2019 Albumin BCP dye [Mass/Vol] 4.4 g/dL 3.4 - 5.0 [facility] Work Phone: ALT With P-5'-P [Catalytic activity/Vol] 11 U/L 10 - 52 [facility] Work Phone: Comment on above: Patients treated wit h Sulfasalazine may generate falsely decreased results for ALT. AST With P-5'-P [Catalytic activity/Vol] 17 U/L 9 - 39 [facility] Work Phone: >60 >60 [facility] Work Phone: Comment on above: CALCULATIONS OF LUZMARIA MATED GFR ARE PERFORMED USING THE MDRD STUDY EQUATION FOR THE IDMS-TRACEABLE CREATININE METHODS. CLIN CHEM 2007;53:766-72 Culture, urine Bacteria identified Cx Nom (U) Mixed Gram Pos & Gram Neg Org [facility] Work Phone: Bacteria identified Cx Nom (U) Klebsiella pneumoniae sp pneum [facility] Work Phone: Vital Signs Date Time Vital Sign Value Performing Clinician Facility 09-13-2023 11:48-0400 Body height 175.3 cm Rebecca Buck MD Work Phone: [facility] 09-13-2023 11:48-0400 Body mass index (BMI) [Ratio] 25.84 kg/m2 Rebecca Buck MD Work Phone: [email or web address] 09-13-2023 11:48-0400 Body weight 79.38 kg Rebecca Buck MD Work Phone: [email or web address] 08-13-2023 09:56-0400 Body height 175.3 cm Rebecca Buck MD Work Phone: [email or web address] 08-13-2023 09:56-0400 Body mass index (BMI) [Ratio] 25.84 kg/m2 Rebecca Buck MD Work Phone: [email or web address] 08-13-2023 09:56-0400 Body weight 79.38 kg Rebecca Buck MD Work Phone: [email or web address] 03-02-2022 18:49-0400 Body temperature 98.01 [degF] Lanette Munguia DO Work Phone: [employer] 03-02-2022 18:49-0400 Diastolic blood pressure 72 mm[Hg] Lanettepriscilla Munguia DO Work Phone: [employer] 03-02-2022 18:49-0400 Heart rate 94 /min Lanette Munguia DO Work Phone: [employer] 03-02-2022 18:49-0400 Respiratory rate 18 /min Lanette Munguia DO Work Phone: [employer] 03-02-2022 18:49-0400 SaO2% (BldA) [Mass fraction] 98 % Lanette Munguia DO Work Phone: [employer] 03-02-2022 18:49-0400 Systolic blood pressure 104 mm[Hg] Lanette Munguia DO Work Phone: [employer] 03-02-2022 11:55-0400 Body height 175.3 cm Lanettepriscilla Munguia DO Work Phone: [employer] 03-02-2022 11:55-0400 Body mass index (BMI) [Ratio] 25.84 kg/m2 Lanette Munguia DO Work Phone: [employer] 03-02-2022 11:55-0400 Body weight 79.38 kg Lanette Munguia DO Work Phone: [facility] 12-22-2021 02:08-0400 Diastolic blood pressure 67 mm[Hg] Sharon Olivia MD Work Phone: [facility] 12-22-2021 02:08-0400 Heart rate 77 /min Sharon Olivia MD Work Phone: [facility] 12-22-2021 02:08-0400 Respiratory rate 16 /min Sharon Olivia MD Work Phone: [facility] 12-22-2021 02:08-0400 SaO2% (BldA) [Mass fraction] 96 % Sharon Olivia MD Work Phone: [facility] 12-22-2021 02:08-0400 Systolic blood pressure 108 mm[Hg] Sharon Olivia MD Work Phone: [facility] 12-21-2021 23:52-0400 Body height 175.3 cm Sharon Olivia MD Work Phone: [facility] 12-21-2021 23:52-0400 Body mass index (BMI) [Ratio] 25.84 kg/m2 Sharon Olivia MD Work Phone: [facility] 12-21-2021 23:52-0400 Body temperature 97.9 [degF] Sharon Olivia MD Work Phone: [facility] 12-21-2021 23:52-0400 Body weight 79.38 kg Sharon Olivia MD Work Phone: [facility] 11-01-2021 08:41-0400 Diastolic blood pressure 77 mm[Hg] Dante Kim MD Work Phone: [facility] 11-01-2021 08:41-0400 Heart rate 75 /min Dante Kim MD Work Phone: [facility] 11-01-2021 08:41-0400 Respiratory rate 16 /min Dante Kim MD Work Phone: [facility] 11-01-2021 08:41-0400 SaO2% (BldA) [Mass fraction] 97 % Dante Kim MD Work Phone: [facility] 11-01-2021 08:41-0400 Systolic blood pressure 112 mm[Hg] Dante Kim MD Work Phone: [facility] 10-31-2021 19:13-0400 Body height 177.8 cm Dante Kim MD Work Phone: [facility] 10-31-2021 19:13-0400 Body mass index (BMI) [Ratio] 27.26 kg/m2 Dante Kim MD Work Phone: [facility] 10-31-2021 19:13-0400 Body temperature 98.49 [degF] Dante Kim MD Work Phone: [facility] 10-31-2021 19:13-0400 Body weight 86.18 kg Dante Kim MD Work Phone: [facility] 10-29-2021 07:38-0400 Body temperature 97.81 [degF] Lisa Miguel Angel DO Work Phone: [facility] 10-29-2021 07:38-0400 Diastolic blood pressure 79 mm[Hg] Lisa Miguel Angel DO Work Phone: [facility] 10-29-2021 07:38-0400 Heart rate 80 /min Lisa Miguel Angel DO Work Phone: [facility] 10-29-2021 07:38-0400 Respiratory rate 18 /min Lisa Miguel Angel DO Work Phone: [facility] 10-29-2021 07:38-0400 SaO2% (BldA) [Mass fraction] 96 % Lisa Miguel Angel DO Work Phone: [facility] 10-29-2021 07:38-0400 Systolic blood pressure 123 mm[Hg] Lisa Miguel Angel DO Work Phone: [facility] 10-25-2021 13:55-0400 Body height 170.2 cm Lisa Miguel Angel DO Work Phone: [facility] 10-21-2021 00:57-0400 Body mass index (BMI) [Ratio] 37.58 kg/m2 Lisa Michelle DO Work Phone: [facility] 10-21-2021 00:57-0400 Body weight 108.86 kg Lisa Michelle DO Work Phone: [facility] 07-13-2020 13:21-0500 BMI (Body Mass Index) 40.47 kg/m2 [facility] Work Phone: 07-13-2020 [...] Practices Work Phone: Comment on above: Location: [facility]; Position: Sitting 04-13-2020 15:33-0500 BP Systolic 145 mm[Hg] Wing Ritter [facility] Work Phone: Comment on above: Location: [facility]; Position: Sitting 04-13-2020 15:33-0500 BSA (Body Surface Area) 2.36 m2 [facility] Work Phone: 04-13-2020 15:33-0500 Height 175.26 cm [facility] Physician [facility] Work Phone: 04-13-2020 15:33-0500 Pulse (Heart Rate) 98 /min [facility] Physician [facility] Work Phone: 04-13-2020 15:33-0500 Pulse Oximetry 98 % [facility] Physician [facility] Work Phone: Comment on above: Source: 04-13-2020 15:33-0500 0 1 [facility] Physician [facility] Work Phone: Comment on above: Pain Scale 01-20-2020 16:39-0400 Body height 175.26 cm Monika Staley MD [facility] [place] Work Phone: 01-20-2020 16:39-0400 Body mass index (BMI) [Ratio] 39.28 kg/m2 Monika Staley MD [facility]-Bfyolajwcp-Nqj [facility] 140 [place] Work Phone: 01-20-2020 16:39-0400 Body surface area Derived from formula 2.33 m2 Monika Staley MD TF-Prwwmqandd-Alq r[facility] 140 [place] Work Phone: 01-20-2020 16:39-0400 Body weight 120.66 kg Monika Staley MD [facility] [place] Work Phone: 01-20-2020 16:39-0400 Diastolic blood pressure 84 mm[Hg] Monika Staley MD WF-Mpvaspiump-Xlw russ 140 [place] Work Phone: Comment on above: Location: [facility]; Position: Sitting 01-20-2020 16:39-0400 Heart rate 80 /min Monika Staley MD [facility] [place] Work Phone: 01-20-2020 16:39-0400 SaO2% (BldA) [Mass fraction] 100 % Monika Staley MD PB-Zbbbrxmvxs-Iqa r[facility] 140 [place] Work Phone: Comment on above: Source: 01-20-2020 16:39-0400 Systolic blood pressure 144 mm[Hg] Monika Staley MD HE-Axqkicbigy-Cqm russ 140 [place] Work Phone: Comment on [...] Provider Facility Start: 03-09-2025 ambulatory Monika Carlos ty:[facility] Start: 03-05-2025 ambulatory Shiela Luís Facili ty:[facility] Start: 03-02-2025 ambulatory Shiela Luís Facili ty:[facility] Start: 02-26-2025 ambulatory Shiela Luís Facili ty:[facility] Start: 02-23-2025 ambulatory Shiela Luís Facili ty:[facility] Start: 02-19-2025 ambulatory Shiela Luís Facili ty:[facility] Start: 02-16-2025 End: 02-16-2025 ambulatory Karon Farmera SCARLET Facility:[facility] Start: 02-12-2025 Registered [facility] [facility] Start: 02-12-2025 End: 02-12-2025 ambulatory Shiela Luís Facility:[facility] Start: 02-09-2025 Registered Referred Carlos Reeder [facility] [employer] Start: 02-09-2025 ambulatory Shiela Luís Facili ty:[facility] Start: 02-05-2025 Registered Referred [facility] [employer] Start: 02-05-2025 End: 02-05-2025 ambulatory Shiela Luís Facility:[facility] Start: 02-02-2025 Registered [facility] [employer] [facility] Start: 02-02-2025 End: 02-02-2025 ambulatory Karon NOVAK Facility:[facility] Start: 01-29-2025 Registered [facility] [employer] [facility] Start: 01-29-2025 End: 01-29-2025 ambulatory Shiela Luís Facility:[facility] Start: 01-26-2025 Registered Referred Karon casillas MD -[facility] [employer] Start: 01-26-2025 End: 01-26-2025 ambulatory Karon NOVAK Facility:[facility] Start: 01-22-2025 [facility]istered [facility] Start: 01-22-2025 End: 01-22-2025 ambulatory Shiela Luís Facility:[facility] Start: 01-19-2025 Registered Referred Carlos Cavazos - [facility] Start: 01-19-2025 End: 01-19-2025 ambulatory Shiela Luís Facility:[facility] Start: 01-15-2025 Registered Referred Karon casillas MD -[facility] [employer] Start: 01-15-2025 End: 01-15-2025 ambulatory Shiela Luís Facility:[facility] Start: 01-12-2025 Registered Referred Karon casillas MD -[facility] [employer] Start: 01-12-2025 End: 01-12-2025 ambulatory Karon NOVAK Facility:[facility] Start: 01-08-2025 Registered Referred Karon casillas MD -[facility] [employer] Start: 01-08-2025 End: 01-08-2025 ambulatory Shiela Luís Facility:[facility] Start: 01-06-2025 Registered Referred Karon casillas MD -[facility] [employer] Start: 01-06-2025 End: 01-06-2025 ambulatory Shiela Luís Facility:[facility] Start: 01-01-2025 End: 01-01-[address] Monika Staley MD Work Phone: -[facility] [employer] Start: 01-01-2025 End: 01-01-2025 Departed Referred Karon Corrales MD -[facility] [employer] Start: 01-01-2025 Registered Referred Karon casillas MD -[facility] [employer] Start: 01-01-2025 End: 01-01-2025 ambulatory Shiela Luís Facility:[facility] Start: 12-29-2024 Registered Referred Carlos Reeder [facility] Start: 12-29-2024 End: 12-29-2024 ambulatory Shiela Luís Facility:[facility] Start: 12-26-2024 End: 12-26-[address] Monika Staley MD Work Phone: -[facility] [employer] Start: 12-26-2024 End: 12-26-2024 Departed Referred Karon Corrales MD -[facility] Start: 12-26-2024 Registered Referred Karon casillas MD -[facility] [employer] Start: 12-26-2024 End: 12-26-2024 ambulatory Shiela Luís Facility:[facility] Start: 12-25-2024 Registered Referred Karon casillas MD -[facility] [employer] Start: 12-24-2024 End: 12-25-2024 ambulatory Shiela Luís Facility:[facility] Start: 12-24-2024 Registered Referred Carlos Cavazos - [facility] [employer] Start: 12-22-2024 [facility] Start: 12-22-2024 Registered Referred Karon casillas MD -[facility] [employer] Start: 12-18-2024 Registered Referred Karon casillas MD -[facility] [employer] Start: 12-18-2024 End: 12-18-2024 ambulatory Shiela Luís Facility:[facility] Start: 12-15-2024 [facility] Start: 12-15-2024 Registered Referred Karon casillas MD -[facility] Start: 12-11-2024 Registered Referred Carlos Cavazos - [facility] [employer] Start: 12-11-2024 End: 12-11-2024 [facility]ulatory [facility] Start: 12-08-2024 Registered Referred Karon casillas MD -[facility] [employer] Start: 12-08-2024 End: 12-08-2024 ambulatory [facility] Luís Facility:[facility] Start: 12-04-2024 Registered Referred Karon casillas MD -[facility] [employer] Start: 12-04-2024 End: 12-04-2024 ambulatory Shiela Luís Facility:[facility] Start: 12-02-2024 ambulatory Mahaveer Mukka flash OLS Facility:[facility] Start: 12-02-2024 Registered Referred [facility] [employer] [facility] Start: 12-01-2024 ambulatory Shiela Luís Facili ty:[facility] Start: 12-01-2024 Registered Referred Carlos Cavazos - [facility] [employer] Start: 11-28-2024 Registered Referred Carlos Cavazos - [facility] [employer] Start: 11-28-2024 End: 11-28-2024 ambulatory Shiela Luís Facility:[facility] Start: 11-27-2024 Registered Referred [facility] [employer] Start: 11-27-2024 End: 11-27-2024 ambulatory Shiela Luís Facility:[facility] Start: 11-24-2024 ambulatory Shiela Luís Facili ty:[facility] Start: 11-24-2024 Registered Referred [facility] [employer] [facility] Start: 11-20-2024 Registered Referred Kaorn casillas MD -[facility] [employer] Start: 11-20-2024 End: 11-20-2024 ambulatory Shiela Luís Facility:[facility] Start: 11-17-2024 ambulatory Shiela Luís Facili ty:[facility] Start: 11-17-2024 Registered Referred [facility] [employer] Start: 11-13-2024 ambulatory Shiela Luís Facili ty:[facility] Start: 11-13-2024 Registered Referred [facility] [employer] [facility] Start: 11-10-2024 ambulatory Karon Knowles flash OLS Facility:[facility] Start: 11-10-2024 Registered Referred [facility] [employer] Start: 11-06-2024 Registered Referred Karon casillas MD -[facility] [employer] Start: 11-06-2024 End: 11-06-2024 ambulatory Karon NOVAK Facility:[facility] Start: 11-03-2024 End: 11-03-[address] Monika Staley MD Work Phone: -[facility] [employer] Start: 11-03-2024 End: 11-03-2024 Departed Referred Carlos Maribelsaviri -[facility] Start: 11-03-2024 Registered Referred Carlos Maribelkameron - [facility] Start: 11-03-2024 End: 11-03-2024 ambulatory Monika Horner Luís Facility:[facility] Start: 10-30-2024 End: 10-30-[address] Monika Staley MD Work Phone: -[facility] [employer] Start: 10-30-2024 End: 10-30-2024 Departed Referred Karon Corrales MD -[facility] [employer] Start: 10-30-2024 Registered Referred Karon casillas MD -[facility] [employer] Start: 10-30-2024 End: 10-30-2024 ambulatory Monika Staley Facility:[facility] Start: 10-27-2024 Registered Referred Karon casillas MD -[facility] [employer] Start: 10-27-2024 End: 10-27-2024 ambulatory Karon NOVAK Facility:[facility] Start: 10-23-2024 Registered Referred Karon casillas MD -[facility] [employer] Start: 10-23-2024 End: 10-23-2024 ambulatory Shiela Luís Facility:[facility] Start: 10-20-2024 End: 10-20-[address] Monika Staley MD Work Phone: [facility] [employer] [facility] Start: 10-20-2024 End: 10-20-2024 Departed Referred [facility] [employer] [facility] Start: 10-20-2024 Registered Referred Karon [employer] Start: 10-20-2024 End: 10-20-2024 ambulatory Karon NOVAK Facility:[facility] Start: 10-16-2024 ambulatory Shiela Luís Facili ty:[facility] Start: 10-16-2024 Registered Referred Karon [facility] [employer] Start: 10-13-2024 ambulatory Shiela Luís Facili ty:[facility] Start: 10-13-2024 Registered Referred Carlos [facility] [employer] Start: 10-09-2024 ambulatory Shiela Luís Facili ty:[facility] Start: 10-09-2024 Registered Referred Karon Morenouary [facility] [employer] Start: 10-06-2024 ambulatory Shiela Luís Facili ty:[facility] Start: 10-06-2024 Registered Referred Carlos [facility] Start: 10-02-2024 ambulatory Shiela Luís Facili ty:[facility] Start: 10-02-2024 Registered Referred Karon Morenouary [employer] Start: 09-30-2024 End: 09-30-[address] Monika Staley MD Work Phone: [facility] Work Phone: Start: 09-30-2024 End: 09-30-2024 Departed Referred [place] [place] [facility] [employer] Start: 09-30-2024 Registered Referred Karon Mcclain [facility] [employer] Start: 09-30-2024 End: 09-30-2024 ambulatory Karon NOVAK Facility:[facility] Start: 09-25-2024 ambulatory Shiela Luís Facili ty:[facility] Start: 09-25-2024 Registered Referred Karon Mcclain [facility] [employer] Start: 09-22-2024 End: 09-22-[address] Monika Staley MD Work Phone: -[place] [facility] [employer] Start: 09-22-2024 End: 09-22-2024 Departed Referred Karon Corrales MD [facility] [facility] Start: 09-22-2024 Registered Referred Karon casillas MD -[place] [facility] [employer] Start: 09-22-2024 End: 09-22-2024 ambulatory Monika Staley Facility:[facility] Start: 09-18-2024 End: 09-18-[address] Monika Staley MD Work Phone: [facility] [employer] Start: 09-18-2024 End: 09-18-2024 Departed Referred Karon Corrales MD -[place] [facility] [employer] Start: 09-18-2024 Registered Referred Karon casillas MD -[place] [facility] [employer] Start: 09-18-2024 End: 09-18-2024 ambulatory Mnoika Staley Facility:[facility] Start: 09-15-2024 End: 09-15-[address] Monika Staley MD Work Phone: [facility] Work Phone: Start: 09-15-2024 End: 09-15-2024 Departed Referred Carlos Cavazos -[place] [facility] [employer] Start: 09-15-2024 Registered Referred Carlos Cavazos - [place] [facility] Start: 09-15-2024 End: 09-15-2024 ambulatory Monika Staley Facility:[facility] Start: 09-11-2024 ambulatory Monika Staley Facili ty:[facility] Start: 09-11-2024 Registered Referred Karon casillas MD -[place] [facility] [employer] Start: 09-08-2024 End: 09-08-[address] Monika Staley MD Work Phone: [facility] Work Phone: Start: 09-08-2024 End: 09-08-2024 Departed Referred Karon Corrales MD -[place] [facility] Start: 09-08-2024 Registered Referred Karon casillas MD -[place] [facility] Start: 09-08-2024 End: 09-08-2024 ambulatory Karon NOVAK Facility:[facility] Start: 09-04-2024 End: 09-04-2024 Departed Referred Carlos Cavazos [facility] [facility] Start: 09-04-2024 Registered Referred Carlos Cavazos - [place] [facility] Start: 09-04-2024 End: 09-04-2024 ambulatory Shiela Luís Facility:[facility] Start: 09-01-2024 End: 09-01-[address] Monika Staley MD Work Phone: [facility] Work Phone: Start: 09-01-2024 End: 09-01-2024 Departed Referred Carlos Cavazos [facility] [facility] Start: 09-01-2024 Registered Referred Carlos Quickros - [place] [facility] Start: 09-01-2024 End: 09-01-2024 ambulatory Monika Horner Luís Facility:[facility] Start: 08-28-2024 End: 08-28-[address] Monika Staley MD Work Phone: [facility] Work Phone: Start: 08-28-2024 End: 08-28-2024 Departed Referred Carlos Cavazos [facility] [facility] [employer] Start: 08-28-2024 Registered Referred Carlos Cavazos - [place] [employer] Start: 08-28-2024 End: 08-28-2024 ambulatory Monika Staley Facility:[facility] Start: 08-25-2024 End: 08-25-[address] Monika Staley MD Work Phone: [facility] Work Phone: Start: 08-25-2024 End: 08-25-2024 Departed Referred Karon Corrales MD -[place] [employer] Start: 08-25-2024 Registered Referred Karon casillas MD -[place] [facility] [employer] Start: 08-25-2024 End: 08-25-2024 ambulatory Karon NOVAK Facility:[facility] Start: 08-21-2024 End: 08-21-[address] Monika Staley MD Work Phone: [facility] Work Phone: Start: 08-21-2024 End: 08-21-2024 Departed Referred Karon Corrales MD -[place] [employer] Start: 08-21-2024 Registered Referred Karon casillas MD -[place] [employer] Start: 08-21-2024 End: 08-21-[facility] Start: 08-18-2024 End: 08-18-[address] Monika Staley MD Work Phone: [facility] Work Phone: Start: 08-18-2024 End: 08-18-2024 Departed Referred Karon Corrales MD -[place] [employer] Start: 08-18-2024 Registered Referred Karon casillas MD -[place] [employer] Start: 08-18-2024 End: 08-18-2024 ambulatory Shiela Luís Facility:[facility] Start: 08-14-2024 End: 08-14-[address] Monika Staley MD Work Phone: [facility] Work Phone: Start: 08-14-2024 End: 08-14-2024 Departed Referred [facility] Start: 08-14-2024 Registered Referred Karon casillas MD -[place] [facility] Start: 08-14-2024 End: 08-14-2024 ambulatory Shiela Luís Facility:[facility] Start: 08-11-2024 End: 08-11-2024 Departed Referred Karon Corrales MD -[place] [facility] Start: 08-11-2024 Registered Referred Karon casillas MD -[place] [facility] Start: 08-11-2024 End: 08-11-2024 ambulatory Shiela Luís Facility:[facility] Start: 08-07-2024 End: 08-07-2024 Departed Referred Carlos Cavazos -[place] [facility] Start: 08-07-2024 Registered Referred Carlos Cavazos - [place] [facility] [employer] Start: 08-07-2024 End: 08-07-2024 ambulatory Shiela Luís Facility:[facility] Start: 08-04-2024 End: 08-04-[address] Monika Staley MD Work Phone: [facility] Work Phone: Start: 08-04-2024 End: 08-04-2024 Departed Referred Carlos Cavazos -[place] [facility] Start: 08-04-2024 Registered Referred Carlos Cavazos - [place] [facility] Start: 08-04-2024 End: 08-04-2024 ambulatory Shiela Lusí Facility:[facility] Start: 07-31-2024 End: 07-31-[address] Monika Staley MD Work Phone: [facility] Work Phone: Start: 07-31-2024 End: 07-31-2024 Departed Referred Karon Corrales MD -[place] [facility] Start: 07-31-2024 Registered Referred Karon casillas MD -[place] [facility] Start: 07-31-2024 End: 07-31-2024 ambulatory Karon NOVAK Facility:[facility] Start: 07-28-2024 End: 07-28-[address] Monika Staley MD Work Phone: [facility] Work Phone: Start: 07-28-2024 End: 07-28-2024 Departed Referred Karon Corrales MD -[place] [facility] [employer] Start: 07-28-2024 Registered Referred Karon casillas MD -[place] [facility] Start: 07-28-2024 End: 07-28-2024 ambulatory Monika Staley Facility:[facility] Start: 07-25-2024 End: 07-25-[address] Monika Staley MD Work Phone: [facility] Work Phone: Start: 07-25-2024 End: 07-25-2024 Departed Referred Carlos Cavazos -[place] [facility] Start: 07-25-2024 Registered Referred Carlos Cavazos - [place] [facility] Start: 07-24-2024 End: 07-25-[address] Monika Staley MD Work Phone: [facility] Work Phone: Start: 07-24-2024 End: 07-24-2024 Departed Referred Karon Corrales MD -[place] [facility] [employer] Start: 07-24-2024 Registered Referred Karon casillas MD -[place] [facility] [employer] Start: 07-24-2024 End: 07-24-2024 ambulatory Karon NOVAK Facility:[facility] Start: 07-21-2024 End: 07-21-[address] Monika Staley MD Work Phone: [facility] Work Phone: Start: 07-21-2024 End: 07-21-2024 Departed Referred Karon Corrales MD -[place] [facility] [employer] Start: 07-21-2024 Registered Referred Karon casillas MD -[place] [facility] Start: 07-21-2024 End: 07-21-[address] [facility] Facility:[facility] Start: 07-17-2024 End: 07-17-[address] Monika Staley MD Work Phone: [facility] Work Phone: Start: 07-17-2024 End: 07-17-2024 Departed Referred Karon Corrales MD -[place] [facility] [employer] Start: 07-17-2024 Registered Referred Karon casillas MD -[place] [facility] Start: 07-17-2024 End: 07-17-2024 ambulatory Karon NOVAK Facility:[facility] Start: 07-14-2024 End: 07-14-[address] Monika Staley MD Work Phone: [facility] Work Phone: Start: 07-14-2024 End: 07-14-2024 Departed Referred Carlos Cavazos -[place] [facility] Start: 07-14-2024 Registered Referred Carlos Cavazos - [place] [facility] Start: 07-14-2024 End: 07-14-2024 ambulatory Shiela Luís Facility:[facility] Start: 07-11-2024 End: 07-11-[address] Monika Staley MD Work Phone: [facility] Work Phone: Start: 07-11-2024 End: 07-11-2024 Departed Referred Carlos Morenouary [facility] Start: 07-11-2024 Registered Referred Carlos [facility] Start: 07-11-2024 End: 07-11-2024 ambulatory Monika Horner Luís Facility:[facility] Start: 07-07-2024 End: 07-07-[address] Monika Staley MD Work Phone: [facility] Work Phone: Start: 07-07-2024 End: 07-07-2024 Departed Referred Karon Corrales MD -[place] [employer] Start: 07-07-2024 Registered Referred [facility] [facility] [employer] Start: 07-07-2024 End: 07-07-2024 ambulatory Karon NOVAK Facility:[facility] Start: 07-03-2024 End: 07-03-[address] Monika Staley MD Work Phone: [facility] Work Phone: Start: 07-03-2024 End: 07-03-2024 Departed Referred Kvng Crisostomo MD -[place] [employer] Start: 07-03-2024 Registered Referred Kvng Crisostomo MD -[place] [employer] Start: 07-03-2024 End: 07-03-2024 ambulatory Monika Staley Facility:[facility] Start: 06-30-2024 End: 06-30-[address] Monika Staley MD Work Phone: [facility] Work Phone: Start: 06-30-2024 End: 06-30-2024 Departed Referred Kvng Crisostomo MD -[place] [employer] Start: 06-30-2024 Registered Referred Kvng Crisostomo MD -[place] [employer] Start: 06-30-2024 End: 06-30-2024 ambulatory Monika Staley Facility:[facility] Start: 06-26-2024 [facility] Start: 06-26-2024 Registered Referred Kvng Crisostomo MD -[place] [employer] Start: 06-23-2024 End: 06-23-[address] Monika Staley MD Work Phone: [facility] Work Phone: Start: 06-23-2024 End: 06-23-2024 Departed Referred Carlos Cavazos -[place] [facility] Start: 06-23-2024 Registered Referred Carlos Cavazos - [place] [facility] Start: 06-23-2024 End: 06-23-[address] [facility] Facility:[facility] Start: 06-19-2024 End: 06-19-[address] Monika Staley MD Work Phone: [facility] Work Phone: Start: 06-19-2024 End: 06-19-2024 Departed Referred Kvng Crisostomo MD -[place] [facility] [employer] Start: 06-19-2024 Registered Referred Kvng Crisostomo MD -[place] [facility] [employer] Start: 06-19-2024 End: 06-19-[address] [facility] Facility:[facility] Start: 06-16-2024 End: 06-16-[address] Monika Staley MD Work Phone: [facility] Work Phone: Start: 06-16-2024 End: 06-16-2024 Departed Referred Kvng Crisostomo MD -[place] [employer] Start: 06-16-2024 Registered Referred Kvng Crisostomo MD -[place] [employer] Start: 06-16-2024 End: 06-16-[address] [facility] Facility:[facility] Start: 06-12-2024 End: 06-12-[address] Monika Staley MD Work Phone: [facility] Work Phone: Start: 06-12-2024 End: 06-12-2024 Departed Referred Kvng Crisostomo MD -[place] [employer] Start: 06-12-2024 Registered Referred Kvng Crisostomo MD -[place] [employer] Start: 06-12-2024 End: 06-12-[address] [facility] Facility:[facility] Start: 06-09-2024 End: 06-09-[address] Monika Staley MD Work Phone: [facility] Work Phone: Start: 06-09-2024 End: 06-09-2024 Departed Referred Carlos Caavzos -[place] [employer] Start: 06-09-2024 Registered Referred Carlos Cavazos - [place] [employer] Start: 06-09-2024 End: 06-09-2024 ambulatory Shiela Luís Facility:[facility] Start: 06-05-2024 End: 06-05-[address] Monika Staley MD Work Phone: [facility] Work Phone: Start: 06-05-2024 End: 06-05-2024 Departed Referred Kvng Crisostomo MD -[place] [employer] Start: 06-05-2024 End: 06-05-2024 ambulatory Monika Staley Facility:[facility] Start: 06-02-2024 End: 06-02-[address] Monika Staley MD Work Phone: [facility] Work Phone: Start: 06-02-2024 End: 06-02-2024 Departed Referred Kvng Crisostomo MD -[place] [employer] Start: 06-02-2024 Registered Referred Kvng Crisostomo MD -[place] [employer] Start: 06-02-2024 End: 06-02-2024 ambulatory Kvng NOVAK Facility:[facility] Start: 05-29-2024 End: 05-29-[address] Monika Staley MD Work Phone: [facility] Work Phone: Start: 05-29-2024 End: 05-29-2024 Departed Referred Kvng Crisostomo MD -[place] [employer] Start: 05-29-2024 Registered Referred Babbaljeet Crisostomo MD -[place] [facility] Start: 05-29-2024 End: 05-29-2024 ambulatory Shiela Luís Facility:[facility] Start: 05-26-2024 End: 05-26-[address] Monika Staley MD Work Phone: [facility] Work Phone: Start: 05-26-2024 End: 05-26-2024 Departed Referred Carlos Cavazos -[place] [facility] Start: 05-26-2024 Registered Referred Carlos Cavazos - [place] [facility] Start: 05-26-2024 End: 05-26-2024 [facility] Start: 05-22-[address] [facility] Facili ty:[facility] Start: 05-22-2024 Registered Referred Kvng Crisostomo MD -[place] [facility] Start: 05-20-2024 End: 05-20-2024 Departed Referred Kvng Crisostomo MD -[place] [facility] Start: 05-19-2024 End: 05-20-2024 ambulatory [facility] Luís Facility:[facility] Start: 05-19-2024 Registered Referred Kvng Crisostomo MD -[place] [facility] Start: 05-15-2024 End: 05-15-2024 Departed Referred Kvng Crisostomo MD -[place] [facility] Start: 05-15-2024 End: 05-15-2024 ambulatory [facility] Luís Facility:[facility] Start: 05-12-2024 End: 05-12-2024 Departed Referred [facility] Start: 05-12-2024 End: 05-12-2024 [facility]ulatory [facility] Start: 05-09-2024 End: 05-09-2024 Departed Referred [facility] Start: 05-09-2024 End: 05-09-2024 ambulatory Kvng NOVAK Facility:[facility] Start: 05-08-2024 End: 05-08-2024 Departed Referred [facility] Start: 05-08-2024 End: 05-08-2024 [facility]ulatory [facility] Start: 05-05-2024 End: 05-05-2024 Departed Referred Kvng Crisostomo MD [facility] [facility] Start: 05-05-2024 End: 05-05-2024 [facility]ulatory [facility] Start: 05-01-2024 End: 05-01-2024 Departed Referred Kvng Crisostomo MD -[place] [facility] Start: 05-01-2024 End: 05-01-2024 ambulatory Kvng NOVAK Facility:[facility] Start: 04-28-2024 End: 04-28-2024 Departed Referred Carlos Cavazos [facility] [facility] Start: 04-28-2024 End: 04-28-[address] [facility] Facility:[facility] Start: 04-24-2024 End: 04-24-2024 Departed Referred [facility] Start: 04-24-2024 End: 04-24-2024 ambulatory Kvng NOVAK Facility:[facility] Start: 04-21-2024 End: 04-21-2024 Departed Referred [facility] Start: 04-21-2024 End: 04-21-[address] [facility] Facility:[facility] Start: 04-17-[address] [facility] Facili ty:[facility] Start: 04-17-2024 Registered Referred [facility] Start: 04-14-[address] [facility] Facili ty:[facility] Start: 04-14-2024 Registered Referred [facility] Start: 04-10-2024 End: 04-10-2024 Departed Referred [facility] Start: 04-10-2024 End: 04-10-2024 ambulatory Shiela Luís Facility:[facility] Start: 04-07-2024 End: 04-07-2024 Departed Referred Carlos Cavazos [facility] [facility] Start: 04-07-2024 End: 04-07-2024 ambulatory Shiela Luís Facility:[facility] Start: 04-04-2024 ambulatory Shiela Luís Facili ty:[facility] Start: 04-04-2024 Registered Referred Kvng Crisostomo MD [facility] [facility] Start: 03-31-2024 End: 03-31-2024 Departed Referred Carlos Cavazos [facility] [facility] Start: 03-31-2024 End: 03-31-2024 ambulatory Shiela Luís Facility:[facility] Start: 03-27-2024 End: 03-27-2024 [address] [facility] [facility] Start: 03-27-2024 End: 03-27-2024 ambulatory Shiela Luís Facility:[facility] Start: 03-24-2024 End: 03-24-2024 Departed Referred Kvng Crisostomo MD [facility] [facility] Start: 03-24-2024 End: 03-24-2024 ambulatory Shiela Luís Facility:[facility] Start: 03-20-2024 End: 03-20-[address] [place] [facility] [facility] Start: 03-20-2024 End: 03-20-2024 ambulatory Shiela Luís Facility:[facility] Start: 03-19-2024 End: 03-19-2024 Departed Referred Kvng Crisostomo MD [facility] [facility] Start: 03-19-2024 End: 03-19-2024 ambulatory Kvng NOVAK Facility:[facility] Start: 03-18-2024 End: 03-18-2024 Departed Referred [facility] [facility] Start: 03-18-2024 End: 03-18-2024 ambulatory Shiela Luís Facility:[facility] Start: 03-17-2024 End: 03-17-2024 [facility] Start: 03-17-2024 End: 03-17-2024 ambulatory [facility] Start: 03-14-2024 End: 03-14-2024 Departed Referred Carlos Quick[facility] Start: 03-14-2024 End: 03-14-2024 [facility]ulatory [facility] Start: 03-13-2024 End: 03-13-2024 Departed Referred [facility] Start: 03-13-2024 End: 03-13-[address] [facility] Facility:[facility] Start: 03-10-2024 End: 03-10-[address] [facility] Facility:[facility] Start: 09-13-2023 End: 09-13-2023 ambulatory REBECCA CIELO [facility] Start: 09-13-2023 End: 09-13-2023 Office outpatient visit 25 minutes Rebecca Buck MD Work Phone: [facility] Comment on above: Left flank pain (Christina magui Dx); BPH with urinary obstruction; History of kidney stones Start: 09-06-2023 End: 09-07-2023 ambulatory Hang[employer] CIELO [facility] Start: 09-06-2023 End: 09-06-2023 Subsequent hospital visit by physician Rebecca Buck MD Work Phone: [facility] Imaging Comment on above: Left flank pain; Calculus of ureter Start: 08-31-2023 ambulatory Eloise Stern RN [facility] Clinical Communication Start: 08-31-2023 Patient encounter procedure Eloise Stern RN [facility] Start: 08-21-2023 Telephone encounter Rebecca Buck MD Work Phone: [facility] Clinical Communication Comment on above: CT appt Boaz advice Start: 08-21-2023 Registered Referred [facility] Start: 08-13-2023 End: 08-13-2023 ambulatory REBECCA BUCK [facility] Start: 08-13-2023 End: 08-13-2023 Office outpatient new 45 minutes Rebecca Buck MD Work Phone: [facility] Comment on above: Left flank pain (Christina magui Dx); Calculus of ureter; Disease of prostate; BPH with urinary obstruction Start: 08-03-2023 End: 08-03-2023 ambulatory [facility] Work Phone: Start: 08-03-2023 End: 08-03-2023 [facility] Start: 07-20-2023 End: 07-20-2023 ambulatory [facility] Work Phone: Start: 07-20-2023 End: 07-20-2023 [facility] Start: 07-20-2023 [facility] Start: 07-18-2023 End: 07-18-2023 ambulatory [facility] Work Phone: Start: 07-18-2023 End: 07-18-2023 [facility] Start: 07-18-2023 [facility] Start: 07-16-2023 End: 07-16-2023 ambulatory [facility] Work Phone: Start: 07-16-2023 End: 07-16-2023 [facility] Start: 07-16-2023 [facility] Start: 07-13-2023 End: 07-13-2023 ambulatory [facility] Work Phone: Start: 07-13-2023 End: 07-13-2023 [facility] Start: 07-13-2023 [facility] Start: 07-12-2023 End: 07-12-2023 ambulatory [facility] Work Phone: Start: 07-12-2023 End: 07-12-2023 [facility] Start: 07-12-2023 [facility] Start: 07-05-2023 End: 07-05-2023 ambulatory [facility] Work Phone: Start: 07-05-2023 End: 07-05-2023 [facility] Start: 07-05-2023 [facility] Start: 07-02-2023 [facility] Start: 06-28-2023 End: 06-28-2023 ambulatory [facility] Work Phone: Start: 06-28-2023 End: 06-28-2023 [facility] Start: 06-28-2023 [facility] Start: 06-25-2023 Telephone encounter Rebecca Buck MD Work Phone: [facility] Start: 06-25-2023 End: 06-25-2023 ambulatory [facility] Work Phone: Start: 06-25-2023 End: 06-25-2023 [facility] Start: 06-25-2023 [facility] Start: 06-21-2023 End: 06-21-2023 ambulatory [facility] Work Phone: Start: 06-21-2023 End: 06-21-2023 [facility] Start: 06-21-2023 [facility] Start: 06-13-2023 End: 06-13-2023 ambulatory [facility] Work Phone: Start: 06-13-2023 End: 06-13-2023 [facility] [facility] Start[facility] 06-06-2023 End: 06-06-2023 ambulatory [facility] Work Phone: Start: 06-06-2023 End: 06-06-2023 [facility] Start: 06-06-2023 [facility] Start: 05-23-2023 End: 05-23-2023 ambulatory [facility] Work Phone: Start: 05-23-2023 End: 05-23-2023 [facility] Start: 05-09-2023 End: 05-09-2023 [facility] Start: 05-09-2023 [facility] Start: 04-23-2023 End: 04-23-2023 [facility] Start: 04-09-2023 End: 04-09-2023 ambulatory [facility] Work Phone: Start: 04-09-2023 End: 04-09-2023 [facility] Start: 04-09-2023 [facility] Start: 04-02-2023 End: 04-02-2023 ambulatory [facility] Work Phone: Start: 04-02-2023 End: 04-02-2023 [facility] Start: 04-02-2023 [facility] Start: 03-26-2023 End: 03-26-2023 ambulatory [facility] Work Phone: Start: 03-26-2023 End: 03-26-2023 Departed [facility]erred [facility] Start: 03-26-2023 Registered [facility] Start: 03-22-2023 End: 03-22-2023 ambulatory [facility] Work Phone: Start: 03-22-2023 End: 03-22-2023 [facility] Start: 03-22-2023 [facility] Start: 03-08-2023 End: 03-08-2023 ambulatory [facility] Work Phone: Start: 03-08-2023 End: 03-08-2023 [facility] Start: 02-22-2023 End: 02-22-2023 ambulatory [facility] Work Phone: Start: 02-22-2023 End: 02-22-2023 [facility] Start: 02-22-2023 [facility] Start: 02-15-2023 End: 02-15-2023 ambulatory [facility] Work Phone: Start: 02-15-2023 End: 02-15-2023 [facility] Start: 02-15-2023 [facility] Start: 02-08-2023 End: 02-08-2023 ambulatory [facility] Work Phone: Start: 02-08-2023 End: 02-08-2023 [facility] Start: 01-31-2023 End: 01-31-2023 ambulatory [facility] Work Phone: Start: 01-31-2023 End: 01-31-2023 [facility] Start: 01-31-2023 [facility] Start: 01-29-2023 End: 01-29-2023 [facility] Start: 01-29-2023 Registered [facility] Start: 01-26-2023 End: 01-26-2023 [facility] Start: 01-26-2023 [facility] Start: 01-24-2023 End: 01-24-2023 [facility] Start: 01-24-2023 [facility] Start: 01-22-2023 End: 01-22-2023 ambulatory [facility] Work Phone: Start: 01-22-2023 End: 01-22-2023 [facility] Start: 01-22-2023 [facility] Start: 01-10-2023 End: 01-10-2023 ambulatory [facility] Work Phone: Start: 01-10-2023 End: 01-10-2023 [facility] Start: 01-10-2023 Registered [facility] Start: 12-27-2022 End: 12-27-2022 ambulatory [facility] Work Phone: Start: 12-27-2022 End: 12-27-2022 [facility] Start: 12-27-2022 Registered [facility] Start: 12-21-2022 End: 12-21-2022 ambulatory [facility] Work Phone: Start: 12-21-2022 End: 12-21-2022 [facility] Start: 12-21-2022 Registered [facility] Start: 12-14-2022 End: 12-14-2022 ambulatory [facility] Work Phone: Start: 12-14-2022 End: 12-14-2022 [facility] Start: 12-14-2022 [facility] Start: 12-07-2022 End: 12-07-2022 ambulatory [facility] Work Phone: Start: 12-07-2022 End: 12-07-2022 [facility] Start: 12-07-2022 [facility] Start: 11-24-2022 End: 11-24-2022 ambulatory [facility] Work Phone: Start: 11-24-2022 End: 11-24-2022 [facility] Start: 11-24-2022 [facility] Start: 11-23-2022 End: 11-23-2022 ambulatory [facility] Work Phone: Start: 11-23-2022 End: 11-23-2022 [facility] Start: 11-23-2022 [facility] Start: 11-22-2022 End: 11-22-2022 ambulatory [facility] Work Phone: Start: 11-22-2022 End: 11-22-2022 [facility] Start: 11-22-2022 Registered Referred [facility] Start: 11-09-2022 End: 11-09-2022 ambulatory [facility] Work Phone: Start: 11-09-2022 End: 11-09-2022 [facility] Start: 11-09-2022 Registered [facility] Start: 10-26-2022 End: 10-26-2022 Departed Referred [facility] Start: 10-26-2022 Registered [facility] Start: 10-12-2022 End: 10-12-2022 ambulatory [facility] Work Phone: Start: 10-12-2022 End: 10-12-2022 Departed Referred [facility] Start: 10-12-2022 Registered Referred [facility] Start: 10-05-2022 End: 10-05-2022 [facility] Start: 10-05-2022 [facility] Start: 09-28-2022 End: 09-28-2022 ambulatory [facility] Work Phone: Start: 09-28-2022 End: 09-28-2022 [facility] Start: 09-14-2022 End: 09-14-2022 [facility] Start: 08-31-2022 End: 08-31-2022 [facility] Start: 08-31-2022 Registered [facility]erred [facility] Start: 08-23-2022 End: 08-23-2022 ambulatory [facility] Work Phone: Start: 08-23-2022 End: 08-23-2022 [facility] Start: 08-23-2022 [facility] Start: 08-17-2022 End: 08-17-2022 ambulatory [facility] Work Phone: Start: 08-17-2022 End: 08-17-2022 Departed Referred [facility] Start: 08-17-2022 Registered [facility] Start: 08-14-2022 End: 08-14-2022 ambulatory [facility] Work Phone: Start: 08-14-2022 End: 08-14-2022 [facility] Start: 08-14-2022 Registered [facility] Start: 07-31-2022 End: 07-31-2022 ambulatory [facility] Work Phone: Start: 07-31-2022 End: 07-31-2022 [facility] Start: 07-31-2022 Registered [facility] Start: 07-24-2022 End: 07-24-2022 ambulatory [facility] Work Phone: Start: 07-24-2022 End: 07-24-2022 [facility] Start: 07-24-2022 Registered Ref[facility] Start: 07-20-2022 End: 07-20-2022 Departed [facility] Start: 07-20-2022 Registered [facility] Start: 07-17-2022 End: 07-17-2022 [facility] Start: 07-17-2022 Registered [facility] Start: 07-11-2022 Registered Referred [facility] Start: 07-10-2022 End: 07-10-2022 ambulatory [facility] Work Phone: Start: 07-10-2022 End: 07-10-2022 [facility] Start: 07-10-2022 [facility] Start: 07-03-2022 End: 07-03-2022 ambulatory [facility] Work Phone: Start: 07-03-2022 End: 07-03-2022 [facility] Start: 07-03-2022 [facility] Start: 06-27-2022 End: 06-27-2022 ambulatory [facility] Work Phone: Start: 06-27-2022 End: 06-27-2022 [facility] Start: 06-27-2022 [facility] Start: 06-13-2022 End: 06-13-2022 ambulatory [facility] Work Phone: Start: 06-13-2022 End: 06-13-2022 [facility] Start: 06-13-2022 [facility] Start: 06-06-2022 End: 06-06-2022 ambulatory [facility] Work Phone: Start: 06-06-2022 End: 06-06-2022 [facility] Start: 06-06-2022 [facility] Start: 05-30-2022 End: 05-30-2022 ambulatory [facility] Work Phone: Start: 05-30-2022 End: 05-30-2022 [facility] Start: 05-30-2022 [facility] Start: 05-16-2022 End: 05-16-2022 ambulatory [facility] Work Phone: Start: 05-16-2022 End: 05-16-2022 Departed Referred [facility] Start: 05-16-2022 [facility] Start: 05-02-2022 End: 05-02-2022 ambulatory [facility] Work Phone: Start: 05-02-2022 End: 05-02-2022 [facility] Start: 05-02-2022 [facility] Start: 04-27-2022 End: 04-27-2022 ambulatory [facility] Work Phone: Start: 04-27-2022 End: 04-27-2022 [facility] Start: 04-27-2022 [facility] Start: 04-26-2022 End: 04-26-2022 ambulatory [facility] Work Phone: Start: 04-26-2022 End: 04-26-2022 [facility] Start: 04-11-2022 End: 04-11-2022 ambulatory [facility] Work Phone: Start: 04-11-2022 End: 04-11-2022 [facility] Start: 03-28-2022 End: 03-28-2022 [facility] Start: 03-28-2022 [facility] Start: 03-23-2022 End: 03-23-2022 [facility] Start: 03-23-2022 [facility] Start: 03-16-2022 End: 03-16-2022 ambulatory [facility] Work Phone: Start: 03-16-2022 End: 03-16-2022 [facility] Start: 03-16-2022 [facility] Start: 03-09-2022 End: 03-09-2022 ambulatory [facility] Work Phone: Start: 03-09-2022 End: 03-09-2022 [facility] Start: 03-09-2022 [facility] Start: 03-06-2022 End: 03-06-2022 ambulatory [facility] Work Phone: Start: 03-06-2022 End: 03-06-2022 Departed Referred [facility] Start: 03-06-2022 [facility] Start: 03-02-2022 End: 03-03-2022 Emergency department patient visit UNKNOWN PROVIDER [facility] Start: 03-02-2022 End: 03-02-2022 Emergency department patient visit Lanette Munguia DO Work Phone: [facility] Emergency Dept Comment on above: Fall, initial encoun ter (Primary Dx); Anticoagulated Start: 02-20-2022 End: 02-20-2022 Departed Referred [facility] Start: 02-20-2022 [facility] Start: 02-13-2022 End: 02-13-2022 ambulatory [facility] Work Phone: Start: 02-13-2022 End: 02-13-2022 [facility] Start: 02-13-2022 [facility] Start: 02-06-2022 End: 02-06-2022 ambulatory [facility] Work Phone: Start: 02-06-2022 End: 02-06-2022 Departed Referred [facility] Start: 02-06-2022 [facility] Start: 01-30-2022 End: 01-30-2022 [facility] Start: 01-30-2022 [facility] Start: 01-26-2022 End: 01-26-2022 ambulatory [facility] Work Phone: Start: 01-26-2022 End: 01-26-2022 [facility] Start[facility] 01-26-2022 [facility] Start: 01-19-2022 End: 01-19-2022 ambulatory [facility] Work Phone: Start: 01-19-2022 End: 01-19-2022 [facility] Start[facility] 01-19-2022 [facility] Start: 01-17-2022 ambulatory [facility] Start[facility] 01-10-2022 [facility] Start: 01-10-2022 End: 01-10-2022 ambulatory [facility] Work Phone: Start: 01-10-2022 End: 01-10-2022 [facility] Start: 01-10-2022 [facility] Start: 01-06-2022 AUDIT Monika Elias rt Work Phone: [facility] Work Phone: Start: 01-05-2022 End: 01-05-2022 [facility] Start: 01-05-2022 [facility] Start: 12-30-2021 End: 12-30-2021 [facility] Start: 12-30-2021 [facility] Start: 12-28-2021 End: 12-28-2021 ambulatory [facility] Work Phone: Start: 12-28-2021 End: 12-28-2021 Departed Referred [facility] Start: 12-28-2021 Registered Referred [facility] Start: 12-26-2021 End: 12-26-2021 ambulatory [facility] Work Phone: Start: 12-26-2021 End: 12-26-2021 Departed Referred [facility] Start: 12-26-2021 Registered Referred [facility] Start: 12-22-2021 End: 12-22-2021 ambulatory [facility] Work Phone: Start: 12-22-2021 End: 12-22-2021 Departed Referred [facility] Start: 12-22-2021 Registered Referred [facility] Start: 12-22-2021 End: 12-22-2021 [facility] Start: 12-21-2021 End: 12-22-2021 Emergency department patient visit Sharon Olivia MD Work Phone: [facility] Emergency Dept Comment on above: Heel ulceration, lef t, with unspecified severity (HCC) (Primary Dx) Start: 12-19-2021 End: 12-19-2021 ambulatory [facility] Work Phone: Start: 12-19-2021 End: 12-19-2021 Departed [facility] Start: 12-19-2021 Registered Referred [facility] Start: 12-12-2021 End: 12-12-2021 ambulatory [facility] Work Phone: Start: 12-12-2021 End: 12-12-2021 Departed [facility] Start: 12-12-2021 [facility] Start: 12-08-2021 End: 12-08-2021 ambulatory [facility] Work Phone: Start: 12-08-2021 End: 12-08-2021 [facility] Start: 12-08-2021 [facility] Start: 12-05-2021 End: 12-05-2021 ambulatory [facility] Work Phone: Start: 12-05-2021 End: 12-05-2021 [facility] Start[facility] 12-05-2021 [facility] Start: 12-01-2021 End: 12-01-2021 [facility] Start: 12-01-2021 [facility] Start: 11-28-2021 End: 11-28-2021 [facility] Start: 11-28-2021 [facility] Start: 11-25-2021 Rx Renewal Monika Elias rt Work Phone: [id number] Work Phone: Start: 11-23-2021 End: 11-23-2021 [facility] Start: 11-23-2021 [facility] Start: 11-22-2021 End: 11-22-2021 [facility] Start[facility] 11-22-2021 [facility] Start: 11-21-2021 End: 11-21-2021 [facility] Start: 11-15-2021 AUDIT Monika Elias rt Work Phone: [id number] Work Phone: Start: 11-14-2021 End: 11-14-2021 Departed Referred [facility] Start: 11-14-2021 Registered Referred [facility] Start: 11-08-2021 End: 11-08-2021 Departed Referred [facility] Start: 11-08-2021 Registered Referred [facility] Start: 11-04-2021 End: 11-04-2021 Departed Referred [facility] Start: 11-04-2021 Registered Referred [facility] Start: 10-31-2021 End: 11-01-2021 Emergency department patient visit UNKNOWN PROVIDER [facility] Start: 10-31-2021 End: 11-01-2021 Emergency department patient visit Dante Kim MD Work Phone: [facility] Emergency Dept Comment on above: Other fatigue (Prima ry Dx) Start: 10-31-2021 End: 10-31-2021 Departed Referred [facility] Start: 10-21-2021 End: 10-29-2021 Evaluation and management of inpatient UNKNOWN PROVIDER [facility] Start: 10-21-2021 End: 10-29-2021 Evaluation and management of inpatient Lisa Miguel Angel JIMENEZ Work Phone: [facility] Comment on above: Leg swelling (Primar y Dx); Acute deep vein thrombosis (DVT) of proximal vein of lower extremity, unspecified laterality (HCC) Start: 10-20-2021 End: 10-20-2021 Departed Referred [facility] Start: 10-17-2021 Telephone encounter Nicole davis MD Work Phone: [facility] Comment on above: Missed Appointment Start: 09-19-2021 End: 09-19-2021 Departed [facility] Start: 11-02-2020 AUDIT Monika Elias rt Work Phone: [facility] Work Phone: Start: 10-27-2020 AUDIT Monika Elias rt Work Phone: [facility] Work Phone: Start: 07-13-2020 Patient encounter procedure Monika Staley [facility] Physician [facility] Work Phone: Start: 04-13-2020 Patient encounter procedure Wing Ritter [facility] Physician [facility] Work Phone: Start: 04-07-2020 Patient encounter procedure Wing Ritter [facility] Work Phone: Start: 03-18-2020 Patient encounter procedure Wing Ritter [facility] Physician [facility] Work Phone: Start: 01-20-2020 Patient encounter procedure Monika Staley MD [id number] Work Phone: Start: 11-13-2019 End: 11-13-2019 Subsequent [...] 12-22-2021 Radex foot complete minimum 3 views eHnry Hidalgo PA Work Phone: Start: 11-01-2021 Urnls [...] 10-26-2021 Electroencephalogram w/rec awake&asleep Sarina Yvette Pineda ATHLETIC DIRECTOR - FAMILY INTERVENTION SPECIALIST Work Phone: Start: 10-26-2021 Ct head/brain w/o co ntrast material Sarina Yvette Pineda ATHLETIC DIRECTOR - FAMILY INTERVENTION SPECIALIST Work Phone: Start: 10-26-2021 Prothrombin time Andres Sheridan MD Work Phone: Start: 10-25-2021 Speech and language therapy regime Sarina Yvette Edwin ATHLETIC DIRECTOR - FAMILY INTERVENTION SPECIALIST Work Phone: Start: 10-25-2021 Prothrombin time Andres [...] count reticulo cyte automated Ellen B Niesha ATHLETIC DIRECTOR - FAMILY INTERVENTION SPECIALIST Work Phone: Start: 10-21-2021 C-reactive protein Loua nn B Niesha ATHLETIC DIRECTOR - FAMILY INTERVENTION SPECIALIST Work Phone: Start: 10-21-2021 Non-invas physiologi c std extremity art 2 level Shruthi Frenchacre ATHLETIC DIRECTOR - FAMILY INTERVENTION SPECIALIST Work Phone: Start: 10-21-2021 Radex calcaneus mini mum 2 views Shruthi Frenchacre ATHLETIC DIRECTOR - FAMILY INTERVENTION SPECIALIST Work Phone: Start: 10-21-2021 Dup-scan xtr veins [...] Comment: Speci men Type: BLOOD SPECIMENOrdering Facility: [facility] Address: [address] [place] [phone] Performed By: #### T SCR ####[facility] BLOOD BANKCLIA [id number] [address] Start: 08-04-2021 Antibody screen Comment on above: Order Comment: Speci men Type: BLOOD SPECIMENOrdering Facility: [facility] Address: [address] [place] [address] Performed By: #### T SCR ####[facility] BLOOD [facility]ANKCLIA [id number] [address] Start: 08-01-2021 Antibody screen Comment on above: Order Comment: Speci men Type: BLOOD SPECIMENOrdering Facility: [facility] Address: [address] [place] [address] Performed By: #### T SCR ####[facility]LO[facility]ANKCLIA [id number] [address] Start: 06-07-2021 Antibody screen Comment on above: Order Comment: Speci men Type: BLOOD SPECIMEN Performed By: #### T SCR ####[facility]LO[facility]ANKCLIA [id number] [address] Start: 09-02-2020 Lipid 1996 panel - [...] - Td) DTaP/Tdap/Td vaccine (2 - Td) [facility] Work Phone: Start: 09-22-2026 DTaP/Tdap/Td Vaccine s (2 - Td or Tdap) DTaP/Tdap/Td Vaccines (2 - Td or Tdap) [facility] Start: 09-02-2025 Lipid panel Lipid Panel [facility] Start: 03-02-2025 Registered Referred Registered Refer red -[place] [employer] [facility] Start: 02-26-2025 Registered Referred Registered Refer red -[place] [employer] [facility] Start: 02-23-2025 Registered Referred Registered Refer red [place] Kathy [facility] Start: 02-19-2025 Registered Referred Registered Refer red [place] [employer] [facility] Start: 02-16-2025 Registered Referred Registered Refer red [place] [employer] [facility] Start: 08-22-2024 DIABETES SCREEN DIABETES SCREEN [facility] Start: 12-04-2023 Lipid panel Lipids [facility] Start: 12-04-2023 Lipid screen Lipid screen [facility] Work Phone: Start: 09-13-2023 End: 09-13-2023 Patient encounter procedure 09/13/2023 11:30 AM EDT Office Visit [facility] [address] [phone] Rebecca Buck MD [address] [address] [facility] Start: 08-31-2023 End: 08-31-2023 Patient encounter procedure 08/31/2023 9:30 AM EDT Appointment [facility] CT Imaging [address] [place] [phone] Rebecca Buck MD [address] [address] [facility] Imaging Start: 08-13-2023 End: 08-12-2024 Basic metabolic 1998 panel - Serum or Plasma Basic metabolic panel Lab Routine Calculus of ureter Expected: 08/13/2023 (Approximate), Expires: 08/12/2024 [facility] Comment on above: Expected: 08/13/2023 (Approximate), Expires: 08/12/2024 Start: 08-13-2023 End: 08-12-2024 CT Abdomen WO contrast CT abdomen pelvis wo IV contrast Imaging Routine Left flank pain Calculus of ureter Expected: 08/13/2023, Expires: 08/12/2024 [facility] Comment on above: Expected: 08/13/2023 , Expires: 08/12/2024 Start: 08-13-2023 End: 02-12-2024 PSA, Monitoring ([facility]) PSA, Monitoring ([facility]) Lab Routine Disease of prostate Expected: 08/13/2023 (Approximate), Expires: 02/12/2024 [facility] Work Phone: Comment on above: Expected: 08/13/2023 (Approximate), Expires: 02/12/2024 Start: 08-13-2023 End: 08-13-2023 Patient encounter procedure 08/13/2023 10:00 AM EDT Office Visit [facility] [address] [place] [phone] Rebecca Buck MD [address] [place], [place] [id number] [facility] Start: 07-17-2023 Bacteria identified in Urine by Culture [facility] Start: 07-17-2023 [facility] Start: 07-16-2023 Measurement of substance [facility] Start: 05-07-2023 Medicare Advantage A nnual Wellness Visit Medicare Advantage Annual Wellness Visit [facility] Start: 03-02-2023 Creatinine measurement Creatinine Le carmela [facility] Start: 03-02-2023 Potassium measurement Potassium Leve l [facility] Start: 08-22-2022 Diabetes mellitus screening Diabetes Screening [facility] Start: 01-05-2022 Influenza vaccination [facility] Start: 12-23-2021 EPV, Provider: Wing Ritter, Status: Pen, Time: 9:30 AM EPV, Provider: Wing Ritter, Status: Pen, Time: 9:30 AM [facility]-Rjmseqhjze-Tjb ma Work Phone: Start: 12-05-2021 Influenza vaccination Flu vaccine (# 1) [facility] Start: 12-05-2021 Blood chemistry [facility] Work Phone: Start: 12-05-2021 Complete blood count [facility] Work Phone: Start: 12-05-2021 [facility] Work Phone: Start: 12-01-2021 [facility] Work Phone: Start: 08-05-2021 COVID-19 VACCINE (4 - Booster for Moderna series) COVID-19 VACCINE (4 - Booster for Moderna series) [facility] Start: 08-05-2021 COVID-19 Vaccine (4 - Booster for Pfizer series) COVID-19 Vaccine (4 - Booster for Pfizer series) [facility] Start: 06-01-2021 COVID-19 Vaccine (4 - Booster for Pfizer series) COVID-19 Vaccine (4 - Booster for Pfizer series) [facility] Start: 05-07-2021 ADVANCE DIRECTIVE DISCUSSION ADVANCE DIRECTIVE DISCUSSION [facility] Start: 08-11-2020 Screening for malign ant neoplasm of colon [facility] Start: 07-30-2020 Screening for malign ant neoplasm of colon [facility] Start: 01-20-2020 Echocardiography Echocardiogram MP-C ardi[facility]-Med [facility] [address] [place] Work Phone: Start: 01-06-2020 Influenza vaccination INFLUENZA (#1) [facility] Start: 12-04-2019 Annual Wellness Visi t (AWV) Annual Wellness Visit (AWV) [facility] Start: 12-04-2019 Creatinine monitoring Creatinine mon itoring [facility] Work Phone: Start: 12-04-2019 Hepatitis C screen Hepatitis C scree n [facility] Work Phone: Comment on above: Postponed from 05/06 (Patient Refused) Start: 12-04-2019 Potassium monitoring Potassium monit oring [facility] Work Phone: Start: 12-04-2019 Prostate specific an tigen measurement Prostate Specific Antigen (PSA) Screening or Monitoring [facility] Start: 12-04-2019 Shingles Vaccine (1 of 2) Day gles Vaccine (1 of 2) [facility] Work Phone: Comment on above: Postponed from 05/06 (Patient Refused) Start: 06-07-2019 Colon Cancer Screen FIT/FOBT [facility] Work Phone: Start: 08-14-[address]CRE[address] [facility] Start: 2017 ADVANCE DIRECTIVE DISCUSSION ADVANCE DIRECTIVE DISCUSSION [facility] Start: 2017 PNEUMOCOCCAL: 65+ (1 - PCV) PNEUMOCOCCAL: 65+ (1 - PCV) [facility] Start: 2017 PNEUMOVAX AGE 65 AND OVER WITH 5YR LOOKBACK (#1) PNEUMOVAX AGE 65 AND OVER WITH 5YR LOOKBACK (#1) [facility] Start: 04-14-2016 DIABETES SCREEN DIABETES SCREEN [facility] Start: 2012 RSV Immunization age d 60 or older (1 - 1-dose 60+ series) RSV Immunization aged 60 or older (1 - 1-dose 60+ series) [facility] Start: 2007 PROSTATE CANCER SCRE ENING DISCUSSION PROSTATE CANCER SCREENING DISCUSSION [facility] Start: 2002 Shingles vaccine (1 of 2) Ady gles vaccine (1 of 2) [facility] Start: 2002 SHINGRIX VACCINE (1 of 2) DAY GRIX VACCINE (1 of 2) [facility] Start: 2002 Tuberculosis screening COLOREC MONIQUE CANCER SCREENING,SEE MODIFIER [facility] Start: 2002 Zoster Vaccines (1 of 2) Zoste r Vaccines (1 of 2) [facility] Start: 1997 COLOGUARD (FIT-DNA) COLOGUARD (FIT-D NA) [facility] Start: [address] [facility] Start: 1997 COLORECTAL CANCER SCREENING COLORECTAL CANCER SCREENING [facility] Start: [address] COLONOGRAPHY [facility] Start: 1997 FECAL OCCULT BLOOD FECAL OCCULT BLOO D [facility] Start: 1997 Screening for malign ant neoplasm of colon [facility] Start: 1997 SIGMOIDOSCOPY [facility] Start: 1987 Diabetes screen Diabetes screen [facility] Start: 1971 Urine microalbumin profile DTAP,TDAP,TD (1 - Tdap) [facility] Start: 1970 ANNUAL PCP TEAM DRILL PRESSER KEESHA DISEASE VISIT ANNUAL PCP TEAM CHRONIC DISEASE VISIT [facility] Start: 1970 BP CONTROLLED (<130/80) BP CONTROLLE D (<130/80) [facility] Start: 1970 Diabetes mellitus screening Diabetes Screening [facility] Start: 1970 HEPATITIS C SCREENING HEPATITIS C SC REEMARRY [facility] Start: 1970 Hepatitis C screening [facility] Start: 1964 Adult depression screening assessment DEPRESSION SCREENING [facility] Start: 1964 Depression Screen Depression Screen [facility] Start: 1962 Diabetic foot examination Diabetes: Foot Exam [facility] Start: 1962 Glaucoma screening Diabetes: R etinopathy Screening [facility] Start: 1962 Preventive dental service Diabetes: Dental Exam [facility] Start: 1952 Echocardiography Echocardiogram [facility] Start: 1952 Hemoglobin A1c measurement Diabetes: Hemoglobin A1C [facility] Start: 1952 Lipid panel Lipid Panel [facility] Start: 1952 Screening for malign ant neoplasm of colon [facility] Bacteria identified in Urine by Culture Urine Culture [facility] Work Phone: End: 03-02-2022 CBC W Auto Differential panel - Blood CBC with Auto Differential Lab Routine One Time for 1 Occurrences starting 03/02/2022 until 03/02/2022 [employer] Work Phone: Comment on above: One Time for 1 Occur rences starting 03/02/2022 until 03/02/2022 End: 03-02-2022 Comprehensive metabolic 2000 panel - Serum or Plasma Comprehensive Metabolic Panel Lab STAT One Time for 1 Occurrences starting 03/02/2022 until 03/02/2022 [facility] Work Phone: Comment on above: One Time for 1 Occur rences starting 03/02/2022 until 03/02/2022 End: 09-06-2023 CT Abdomen WO contrast [facility] [employer] Work Phone: Comment on above: Once for [...] AM EDT [facility] Work Phone: Oxygen therapy [[facility] Data Set] Initiate Oxygen Therapy Protocol Respiratory Care Routine As Needed until discontinued starting 10/21/2021 [facility] Comment on above: As Needed [...] been ruled out! Planned Goals not documented IG-Txztzkqyvb-Rru ma Work Phone: Immunizations Immunization Date Immunization [...] Phone: Payers Date Payer Category Payer Unknown [id number] 03-10-2024 Self-pay 01-05-2022 Medicaid 01-05-2022 Medicare 01-05-2022 Medicare [id number] 10-05-2021 Medicaid [id number] [id number] 06-07-2021 Medicare UHC MEDICARE UHC DUAL COMPLETE HMO SNP [id number] 06/07/2021-Present [phone] [address] [place] [address] Medicare [id number]. 2.7.3.566540.315 06-07-2021 Medicare UHC MEDICARE [employer] DUAL COMPLETE [id number] 06/07/2021-Present [phone] [address] [place] [id number]. 2.7.3.586938.315 11-05-2019 Medicare UHC AAR MEDICAR E [facility] AAR MEDICARE O [id number] 11/05/2019-Present HMO [id number] [id number]. 2.7.3.467231.315 07-06-2015 Medicare UHC MEDICARE UHC MEDICARE COMPLETE xxxxxxxxx 2015-Present xxxxxxxxx 1.2.840.087817.1.13.239. 2.7.3.181909.315 1952 Unknown [id number] 2.16.840.1.965760.3.579. 2.668 1952 Unknown [id number] 2.16840.1.581206.3.579. 2.668 1952 Unknown [id number] 2.16840.1.437285.3.579. 2.668 1952 Unknown [id number] 2.16840.1.624016.3.579. 2.668 1952 Unknown [id number] 2.16840.1.740484.3.579. 2.668 1952 Unknown [id number] 2.16.840.1.792131.3.579. 2.668 1952 Unknown [id number] 2.16.840.1.904200.3.579. 2.668 Private Health Insurance Unknown Unknown [id number] 2.16.840.1.593070.3.579. 2.462 Unknown [id number] 2.16.840.1.498783.3.579. 2.462 Unknown [id number] 2.16.840.1.375376.3.579. 2.462 Unknown [id number] 2.16.840.1.761614.3.579. 2.462 Unknown [id number] 2.16.840.1.293797.3.579. 2.462 Unknown [id number] 2.16.840.1.545333.3.579. 2.462 Unknown [id number] 2.16.840.1.685582.3.579. 2.462 Unknown [id number] 2.16.840.1.232937.3.579. 2.462 Unknown [id number] 2.16.840.1.171584.3.579. 2.462 Unknown [id number] 2..840.1.065222.3.579. 2.462 Unknown [id number] 2.16.840.1.991882.3.579. 2.462 Unknown [id number] 2..840.1.423866.3.579. 2.462 Unknown [id number] 2.840.1.621252.3.579. 2.462 Unknown [id number] 2.16.840.1.315987.3.579. 2.462 Unknown [id number] 2.16.840.1.865478.3.579. 2.462 Unknown [id number] 2.16.840.1.287625.3.579. 2.462 Unknown [id number] 2.16.840.1.460281.3.579. 2.462 Unknown [id number] 2.16.840.1.329046.3.579. 2.462 Unknown [id number] 2.16.840.1.390244.3.579. 2.462 Unknown [id number] 2.16.840.1.539151.3.579. 2.462 Unknown [id number] 2.16.840.1.666999.3.579. 2.462 Unknown [id number] 2.16.840.1.901292.3.579. 2.462 Unknown [id number] 2.16.840.1.539787.3.579. 2.462 Unknown [id number] 2.16.840.1.926043.3.579. 2.462 Unknown [id number] 2.16.840.1.625389.3.579. 2.462 Unknown [id number] 2.16840.1.798135.3.579. 2.462 Unknown [id number] 2.16.840.1.945825.3.579. 2.462 Unknown [id number] 2.840.1.747836.3.579. 2.462 Unknown [id number] 2.840.1.308450.3.579. 2.462 Unknown [id number] 2.840.1.640505.3.579. 2.462 Unknown [id number] 2.840.1.177649.3.579. 2.462 Unknown [id number] 2.840.1.929707.3.579. 2.462 Unknown [id number] 2.840.1.872152.3.579. 2.462 Unknown [id number] 2.840.1.621942.3.579. 2.462 Unknown [id number] 2.840.1.493165.3.579. 2.462 Unknown [id number] 2.16840.1.268903.3.579. 2.462 Unknown [id number] 2.840.1.085137.3.579. 2.462 Unknown [id number] 2.16840.1.470883.3.579. 2.462 Unknown [id number] 2.840.1.020156.3.579. 2.462 Unknown 29938014 2.16840.1.399519.3.579. 2.462 Unknown 83455227 2.16.840.1.959147.3.579. 2.462 Unknown [id number] 2.16.840.1.423041.3.579. 2.462 Unknown 95737254 2.16.840.1.234066.3.579. 2.462 Unknown [id number] 2.16.840.1.690340.3.579. 2.462 Unknown [id number] 2.16.840.1.273675.3.579. 2.462 Unknown [id number] 2..840.1.905696.3.579. 2.462 Unknown [id number] 2.840.1.948666.3.579. 2.462 Unknown [id number] 2..840.1.707050.3.579. 2.462 Unknown [id number] 2.840.1.443929.3.579. 2.462 Unknown [id number] 2.840.1.154049.3.579. 2.462 Unknown [id number] 2.840.1.533397.3.579. 2.462 Unknown [id number] 2.840.1.622140.3.579. 2.462 Unknown [id number] 2..840.1.979103.3.579. 2.462 Unknown [id number] 2.840.1.195495.3.579. 2.462 Unknown [id number] 2.840.1.042035.3.579. 2.462 Unknown 40436147 2..840.1.473416.3.579. 2.462 Unknown [id number] 2.16.840.1.398780.3.579. 2.462 Unknown 12747935 2.16.840.1.810233.3.579. 2.462 Unknown 98884978 2.840.1.458541.3.579. 2.462 Unknown [id number] 2.16.840.1.588632.3.579. 2.462 Unknown 70190727 2.16.840.1.796337.3.579. 2.462 Unknown 33867280 2.16.840.1.725158.3.579. 2.462 Unknown 94107712 2.16.840.1.978555.3.579. 2.462 Unknown 58136096 2.16.840.1.023728.3.579. 2.462 Unknown 88860880 2.16.840.1.203984.3.579. 2.462 Unknown 32362764 2.16.840.1.435176.3.579. 2.462 Unknown 52379402 2.16.840.1.789950.3.579. 2.462 Unknown 76965597 2.16.840.1.880761.3.579. 2.462 Unknown [id number] 2.16.840.1.141196.3.579. 2.462 Unknown 44980882 2.16.840.1.056694.3.579. 2.462 Unknown 99860699 2.16.840.1.163640.3.579. 2.462 Unknown 30256979 2.16.840.1.664262.3.579. 2.462 Unknown 50461628 2.16.840.1.478591.3.579. 2.462 Unknown 29797900 2.16.840.1.471000.3.579. 2.462 Unknown 59205919 2.16.840.1.634456.3.579. 2.462 Unknown [id number] 2.16.840.1.315316.3.579. 2.462 Unknown 22298593 2.16.840.1.510923.3.579. 2.462 Unknown 42593422 2.16.840.1.193668.3.579. 2.462 Unknown 66761497 2.16.840.1.206835.3.579. 2.462 Unknown 65811711 2.16.840.1.964387.3.579. 2.462 Unknown 64329031 2.16.840.1.478303.3.579. 2.462 Unknown [id number] 2.16.840.1.217652.3.579. 2.462 Unknown [id number] 2.16.840.1.927019.3.579. 2.462 Unknown [id number] 2.16.840.1.587713.3.579. 2.462 Unknown [id number] 2.16.840.1.878570.3.579. 2.462 Unknown [id number] 2.16.840.1.315993.3.579. 2.462 Unknown 58417715 2.16.840.1.101309.3.579. 2.462 Unknown 52323325 2.16.840.1.657494.3.579. 2.462 Unknown [id number] 2.16.840.1.925057.3.579. 2.462 Unknown 06246008 2.16.840.1.050467.3.579. 2.462 Unknown [id number] 2.16.840.1.349099.3.579. 2.462 Unknown 87030791 2.16.840.1.021999.3.579. 2.462 Unknown 68704800 2.16.840.1.765050.3.579. 2.462 Unknown [id number] 2.16.840.1.592975.3.579. 2.462 Unknown 56462469 2.16.840.1.083973.3.579. 2.462 Unknown [id number] 2.16.840.1.192800.3.579. 2.462 Unknown 65881359 2.16.840.1.342974.3.579. 2.462 Unknown 73464588 2.16.840.1.212917.3.579. 2.462 Unknown 48033156 2.16.840.1.544430.3.579. 2.462 Unknown 48662454 2.16.840.1.997673.3.579. 2.462 Unknown 29922557 2.840.1.547766.3.579. 2.462 Unknown 11335641 2.840.1.734872.3.579. 2.462 Unknown 45817224 2.840.1.999508.3.579. 2.462 Unknown 81281794 2.840.1.608537.3.579. 2.462 Unknown 66136684 2.840.1.871915.3.579. 2.462 Unknown 42678996 2.840.1.072194.3.579. 2.462 Unknown [id number] 2.840.1.715060.3.579. 2.462 Unknown [id number] 2..840.1.021161.3.579. 2.462 Unknown 34057830 2.840.1.429529.3.579. 2.462 Unknown 48040013 2.840.1.496092.3.579. 2.462 Unknown 50862260 2.840.1.119920.3.579. 2.462 Unknown [id number] 2.840.1.265198.3.579. 2.462 Unknown [id number] 2.16.840.1.935722.3.579. 2.462 Unknown [id number] 2.16.840.1.338128.3.579. 2.462 Unknown [id number] 2.840.1.390568.3.579. 2.462 Unknown [id number] 2.16.840.1.593176.3.579. 2.462 Social History Date Type Detail Facility Start: 05-23-2018 End: 05-19-2019 Tobacco smoking status NHIS Former smoker [employer] Work Phone: History of tobacco use Cigar Smoker [employer] Work Phone: Start: 05-19-2019 End: 08-13-2023 Cigarettes smoked current (pack per day) - Reported [employer] Work Phone: Start: 05-19-2019 End: 08-13-2023 Alcohol intake Current non-drinker of alcohol (finding) [employer] Work Phone: Start: 12-03-2018 History SDOH Physica l Activity DPW 7 [employer] Work Phone: Start: 12-03-2018 History SDOH Physica l Activity MPS 9 [employer] Work Phone: Start: 12-03-2018 End: 10-31-2021 History SDOH Stress 1 [employer] Work Phone: Start: 12-03-2018 History SDOH Financial 5 [employer] Work Phone: Start: 12-03-2018 History SDOH Transpo rt Med 2 [employer] Phone: Start: 1950 Sex Assigned At Not on file [facility] [employer] Work Phone: Start: 08-13-2012 End: 11-13-2019 Tobacco smoking status NJIS Never smoker [facility] Start: 05-23-2018 End: 11-13-2019 Tobacco use and exposure Never used [facility] Start: 11-13-2019 History SDOH Alcohol Std Drinks 98 [facility] Start: 10-11-2021 End: 02-15-2022 Exposure to SARS-CoV-2 (event) Not sure [facility] Start: 1950 Sex Assigned At Male [place] History of tobacco use Current smoker [facility] Work Phone: History of tobacco use Cigarette Smoker [facility] Work Phone: Start: 10-31-2021 End: 08-13-2023 Tobacco use panel [facility] Tobacco smoking stat us NHIS Unknown if ever smoked [facility] Work Phone: Start: 07-11-2024 End: 08-21-2024 Sex Male (finding) [facility] NEGATED: Highlighted row - - [facility] Work Phone: Medical Equipment Procedure Code Equipment Code Equipment Origin al Text Equipment Identifier Dates Kit Bactiseal Woodard maria guadalupe Silicone Barium Catheter Shunt Sterile - [id number] Start: 06-08-2021 Catheter Bactise al 14cm External Drainage Csf Sterile Latex Free - [id number] Start: 08-05-2021 Valve Certas Shannon nt Inline - [id number] Start: 06-08-2021 Valve Certas Shannon nt Inline - [id number] Start: 08-05-2021 Valve Certas Shannon nt Inline - [id number] Start: 08-09-2021 Goals Date Patient Goal [...] status health issues are not documented Disease [facility] Work Phone: Mental Status Date Assessment Result Facility NEGATED: Highlighted row Cognitive function [Interpretation] Cognitive status health issues are not documented Disease [facility] Work Phone: Clinical [...] Hydrocephalus, adult (CMS/HCC) (HCC) Kidney stone Neuropathy CONTRACT NEGOTIATION SPECIALIST (ventriculoperitoneal) shunt status Past Surgical History: Procedure [...] 09/13/23 12:05 PM documented in this encounter [facility] 08-31-2023 Note S: Shanthi from [facility] spoke with [facility] nurse regarding voiding trial procedure. B: [...] Protocols used: Information Only Call - No [id number] [facility] 08-31-2023 Telephone encounter Note S: Shanthi from [facility] spoke with [facility] nurse regarding voiding trial procedure. B: Onset of symptoms/concern today. A: [facility] is calling to make sure that the patient doesn't need to stand for the procedure as the patient can't. Patient using a boaz lift and would need to come by cot if so. Shanthi advised that the patient would need to come back cot if unable to stand to move from chair to exam table for procedure. R: [facility] will attempt to arrange for transportation for September 03 but might need to reschedule appointment if unable to obtain transportation. Reason for Disposition [1] Caller requesting NON-URGENT health information AND [2] PCP's office is the best resource Protocols used: Information Only Call - No [id number] [facility] 08-31-2023 Miscellaneous Notes S: Shanthi from [facility] spoke with [facility] nurse regarding voiding trial procedure. B: Onset of symptoms/concern today. A: [facility] is calling to make sure that the patient doesn't need to stand for the procedure as the patient can't. Patient using a boaz lift and would need to come by cot if so. Shanthi advised that the patient would need to come back cot if unable to stand to move from chair to exam table for procedure. R: [facility] will attempt to arrange for transportation for September 03 but might need to reschedule appointment if unable to obtain transportation. Reason for Disposition [1] Caller requesting NON-URGENT health information AND [2] PCP's office is the best resource Protocols used: Information Only Call - No [id number] documented in this encounter [facility] 08-29-2023 Telephone encounter Note Lm on daughters vm to advise them to call the number for the manager software development to get clarification, and to call back with further questions [facility] 08-29-2023 Miscellaneous Notes Lm on daughters vm to advise them to call the number for the manager software development to get clarification, and to call back with further questions Yes, they will need to call the number given to them. Please advise Name of caller: Shanthi Contact phone number: [phone] Relationship to Patient: patient Provider: MD Cielo Practice: [facility] Urology Chief Complaint/Reason for Call: [facility] called in to see if Pt would need to come by cot for his CT appt due to Pt being Boaz. TEA did reach out to office and was advised to reach out to Central Scheduling. TEA did reach out to and was advised to let [facility] know that she would need to reach out to call Maury Cedeño Credit Administration Manager at [facility] [phone] to get clarifications. TEA did reach back out to [facility] and advised and provider Maury's #. Please advise Best time of day caller can be reached: Any Patient advised that office/PCP has 24-48 business hours to return their call: N/A documented in this encounter [facility] 08-27-2023 Telephone encounter Note Yes, they will need to call the number given to them. [facility] 08-27-2023 Telephone encounter Note Please advise [facility] [email or web address] 08-21-2023 Telephone encounter Note Name of caller: Shanthi Contact phone number: [phone] Relationship to Patient: patient Provider: MD Cielo Practice: [facility] Urology Chief Complaint/Reason for Call: Shanthi called [...] to reach out to call Maury Cedeño Credit Administration Manager at [facility] [phone] to get clarifications. CAC did reach back out to [facility] and advised and provider Maury's #. Please advise Best time of day caller can be reached: Any Patient advised that office/PCP has 24-48 business hours to return their call: N/A [facility] [email or web address] 08-13-2023 History of Present illness Narrative Images [...] Hydrocephalus, adult (CMS/HCC) (HCC) Kidney stone Neuropathy CONTRACT NEGOTIATION SPECIALIST (ventriculoperitoneal) shunt status Past Surgical History: Past [...] 08/13/23 10:45 AM documented in this encounter [facility] 06-25-2023 Telephone encounter [facility] 07[facility]10[facility]23 [place] has to be made further out, pt being transported by cot. Changed appt to 08/13/23 per [facility] only avail time for transport, first avail with DR Buck at 10:00 AM. [facility] 06-25-2023 Miscellaneous Notes [facility]t scheduled 07/10/23 [place] has to be made further out, pt being transported by cot. Changed appt to 08/13/23 per [facility] only avail time for transport, first avail with DR Buck at 10:00 AM. documented in this encounter [facility] 12-22-2021 Hospital Discharge instructions SANIA Lou - 12/22/2021 2:32 AM EDT Please take medication as prescribed Please follow up with your Physicians as instructed in this discharge paperwork Thank you for choosing [facility] I appreciate your patience Please return to the emergency department if your symptoms worsen, or new symptoms develop as discussed documented in this encounter [facility] Work Phone: 10-29-2021 Note Hospitalist Discharg e [...] abnormality and previous indwelling tubing history of CONTRACT NEGOTIATION SPECIALIST shunt ? #?Bilateral lower extremity wounds-wound care [...] neurologist. Patient will be [facility] the [facility] and his Coumadin was continued, dosing instructions were given. Wound care was given for his lower extremity wounds. Consults: neurology, vascular surgery, gastroenterology Discharge Instructions: Diet: No diet orders on file Activity: as tolerated Disposition: Patient discharged in stable condition to penitentiary . Greater than 30 minutes spent discharging [...] Your Medications These medications were sent to [facility] [address] [place] [address] - [phone] - [phone] [place] [address] ? levETIRAcetam 750 MG tablet ? warfarin 6 MG tablet Recommended Follow-up: No follow-up provider specified. Complexity of Follow up: [] Moderate Complexity: follow up within 7-14 calendar days (41073) [x] Severe Complexity: follow up within 7 calendar days (67544) Follow up Testing, Pending results or Referrals [...] Information Primary Emergency Contact: Triny Damon [address]: [address] [place] [address] [place], [place] [id number] [place] [address] Relation: Brother/Sister Secondary Emergency Contact: Melissa Sifuentes Mobile Relation: Child Preferred language: French Past Surgical History: Past Surgical History: Procedure Laterality Date BRAIN SURGERY CHOLECYSTECTOMY COLONOSCOPY HERNIA REPAIR Immunization History: Immunization History Administered Date(s) Administered Influenza Virus Vaccine 02/08/2015 Influenza, High Dose (Fluzone 65 yrs and older) 01/25/2018, 03/04/2019 Influenza, Quadv, IM, (6 mo and older Fluzone, Flulaval, Fluarix and 3 yrs and older Afluria) 02/24/2016, 02/14/2017 Pneumococcal Conjugate 13-valent ([id number]) 09/22/2016 Pneumococcal Conjugate Vaccine 02/04/2013 Pneumococcal Polysaccharide ([id number]) 12/03/2018 Tdap (Boostrix, Adacel) 09/22/2016 Active Problems: [...] Dependent Dressing Dependent Toileting Dependent Feeding Dependent Aluminum Molder Dependent Med Delivery whole in [facility] Wound Care Documentation and Therapy: Wound 10/21/21 [...] Q4H prn SOB Oxygen Therapy: {Therapy; copd oxygen:54221} Ventilator: { CC Vent List:[id number]} Rehab Therapies: {THERAPEUTIC INTERVENTION:4280727709} Weight Bearing Status/Restrictions: Weight Bearing - Patient was bedbound in hospital Other Medical Equipment (for information only, NOT a DME order): wheelchair, hospital bed, and Boaz Other Treatments: Patient's personal belongings (please select all that are sent with patient): {[facility] DME Belongings:[id number]} RN SIGNATURE: CASE MANAGEMENT/SOCIAL WORK SECTION Inpatient Status Date: Readmission Risk Assessment Score: Readmission Risk Risk of Unplanned Readmission: 11 Discharging to Facility/ Agency Name: Address: Phone: Fax: Dialysis Facility (if applicable) Name: Address: Dialysis Schedule: Phone: Fax: Spinal Surgeon/Brand Strategist signature: {Esignature:[id number]} PHYSICIAN SECTION Prognosis: Fair Condition at Discharge: [...] the diagnosis listed and that he requires Shelter Facility for greater than 30 days. Update Admission H&P: No change in H&P PHYSICIAN SIGNATURE: documented in this encounter [facility] Work Phone: 10-29-2021 History of Present illness Narrative [facility] Anticoagulation Management Service ([facility]) Inpatient Warfarin Consult HPI: Andrew Sifuentes is a 71 y.o. 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 Pt [...] drug interactions and adjust dose accordingly. 3. [facility] will manage while inpatient and sign off at discharge. Patient resides in a SNF. If discharged, recommend continuing close to 6-7mg warfarin daily. 4. Will provide warfarin education including [facility] warfarin booklet, if appropriate. Vimal Oropeza [facility], PharmD [facility] Consult Service is available daily [phone]. Please search for covering pharmacist name via [facility] or Groups --> Pharmacy --> Anti-Coagulation Consult Pharmacist (on 3rd page). If no response via [employer], please page [phone]. Patient seen and chart reviewed. Afebrile. Adequate oxygenation on room air. Baseline mentation. Exam stable X 5 systems. Hgb 11.0 WBC 10.0 K Platelets 344 K Creatinine 0.71 GFR > 90 cc/min. NSE 20.8 with hemolysis. PT 30.8 INR 3.1 Conversion to Warfarin has been completed. APS w/u pending. Discussed with patient's staffing consultant. Will continue to monitor. Total visit time > 35 minutes. Neurology Attending Progress Note SUBJECTIVE: No issues overnight. Care discussed with nursing staff/patient's medical team MRI brain reported nothing acute. Assessment and Plan: 71 yr M with H obstructive hydrocephalus s/p CONTRACT NEGOTIATION SPECIALIST shunt in 1987, needing multiple revisions and [...] normal limits and both old and new CONTRACT NEGOTIATION SPECIALIST shunt tubing noted. At present patient is awake, follows commands, was able to tell his name, and that he was in hospital but not oriented to time. Per documentation patient had NCSE in May 2021, was on Vimpat, but it was discontinued as there was no evidence of recurrent seizures in july 2021 by Neurology at [facility], per daughter patient was on Dilantin for 31 yrs. Per daughter patient had seizures in the past and also felt he had staring episodes 10/26/2021 morning. Per daughter patient has been essentially bed bound in [place] since May 2021 but prior to that was independent Impressions: H/O hydrocephalus H/O seizure, H/O stroke Acute DVT H/O PE Plan: -MRI brain w/o contrast nothing acute -CT head done during this admission reported no hydrocephalus, ventricles within normal limits and both old and new CONTRACT NEGOTIATION SPECIALIST shunt tubing noted -EEG mild to moderate slow, no seizures reported -Labs reviewed -Hydrocephalus management per Neurosurgery. At present patient does not have hydrocephalus on CT head done this admission. No Neurosurgery services available as inpatient in [facility]. Patient can follow up with Neurosurgery as outpatient and if ends up needing inpatient neurosurgery requirement then may need to be transferred to [facility]. -No clear clinical signs of ventriculitis. Defer evaluation to primary medical team/ID as deemed necessary. -Discussed with daughter in detail on . She was concerned that patient has had h/o seizures, and he has been taken off seizure medication, per note documentation patient had NCSE in May 2021 when he was admitted to [facility]. Per daughter she would want patient [...] is no in house Neurology coverage at [facility] over the weekend, primary hospitalist team to contact reconciliation accountant Neurology at [facility] for any weekend neurological issues related to the patient and if need to discuss any neurological test results/findings. Other deal in house Neurology coverage will be available from Sunday at [facility] and please call reconciliation accountant Neurology back on Sunday if need further assistance. This note has been generated using [employer] dictation software. It may contain incorrect words, punctuation's and spellings that were not noted in the review of the note prior to signing. This note has been generated using [employer] dictation software. It may contain incorrect words, [...] eGFR >90.0 >60 mL/min EGFR IF NonAfrican Pakistani >90.0 >60 mL/min Calcium 9.1 8.4 - [...] Radiology ACCESSION EXAM DATE/TIME PROCEDURE ORDERING PROVIDER [id number] 10/21/2021 15:30 EDT CR Calcaneus 2+ Views [id number] -SHRUTHI MALIK Left CPT code 85534 Reason For Exam (CR Calcaneus 2+ Views [...] Tomography ACCESSION EXAM DATE/TIME PROCEDURE ORDERING PROVIDER [id number] 10/26/2021 11:[address] Head or Brain w/o EDWIN, RECONCILIATION COORDINATOR, SARINA Contrast CPT code 04159 Reason For Exam (CT Head or Brain w/o Contrast) hydrocephalus. thank you Report CLINICAL INFORMATION: Hydrocephalus. Shunt. 3 mm axial cuts through the head are obtained without IV contrast. The examination is compared to a previous study dated 06/29/2014. FINDINGS: Old CONTRACT NEGOTIATION SPECIALIST shunt tubing is noted bilaterally. The new [...] are clear. IMPRESSION: 1. Old and new CONTRACT NEGOTIATION SPECIALIST shunt tubing. 2. No hydrocephalus. 3. Atrophy [...] Imaging ACCESSION EXAM DATE/TIME PROCEDURE ORDERING PROVIDER [id number] 10/23/2021 11:08 EDT MRI Abdomen w/o Contrast WING SRIVASTAVA CPT code 92454 Reason For Exam (MRI Abdomen w/o Contrast) [...] Medicine ACCESSION EXAM DATE/TIME PROCEDURE ORDERING PROVIDER [id number] 10/21/2021 07:55 EDT NM Pulmonary Perfusion [id number] -SHAILESHMAY w/ Vent Aerosol CPT code 54633 A9567 Reason For Exam (NM Pulmonary Perfusion [...] Brachial Indices Extremity Bilateral Result Date: 10/22/2021 [facility] --- Ankle Brachial Index Report Patient Gurpreet : 1950 Study 10/21/2021 Name: Andrew Gonzalez (71yrs) Date: Age: 71 Account: [id number] Gender: M Loc: 444W BP: Ordering Physician: Shruthi Malik Black Leather Trimmer: Rody Cross RDMS, RVT Interpreting Physician: Carina Call --- Location: [facility] --- Indications: Foot wounds. Originally ordered as a full PVR. Ordering RECONCILIATION COORDINATOR had to modify the order to ABIs [...] supine position. Images were obtained using a Minuss vascular ultrasound machine. --- Arterial pressure indices: [...] EXTREMITY BILATERAL VENOUS DUPLEX Result Date: 10/21/2021 [facility] --- Lower Extremity Venous Duplex Report Patient DO GurpreetB: 1950 Study 10/21/2021 Name: Andrew Gonzalez (71yrs) Date: Age: 71 Account: [id number] Gender: M Loc: 444 BP: Ordering Physician: May Cash Black Leather Trimmer: Rody Cross RDMS, RVT Interpreting Physician: Carina Call --- Location: [facility] --- Indications: Bilateral lower leg edema. [...] supine position. Images were obtained using a Minuss vascular ultrasound machine. --- Venous flow and [...] Radiology ACCESSION EXAM DATE/TIME PROCEDURE ORDERING PROVIDER [id number] 10/21/2021 08:16 EDT CR Chest 1 View Frontal [id number] MAY BOGGS CPT code 30378 Reason For Exam (CR Chest 1 View [...] Tomography ACCESSION EXAM DATE/TIME PROCEDURE ORDERING PROVIDER [id number] 10/22/2021 13:[address] Abdomen/Pelvis (No SRIVASTAVA, WING PO, No IV) CPT code 72037 Reason For Exam (CT Abdomen/Pelvis (No PO, [...] Imaging ACCESSION EXAM DATE/TIME PROCEDURE ORDERING PROVIDER [id number] 10/27/2021 13:14 EDT MRI Brain w/o Contrast UNASSIGNED, UNASSIGNED CPT code 53544 Reason For Exam (MRI Brain w/o Contrast) stroke Patient has CONTRACT NEGOTIATION SPECIALIST shunt in place, please follow Radiology protocol [...] included. Hospitalist Progress Note 10/28/2021 11:37 AM [phone]: Please page me @ [phone] for patient care issues. [phone]: Please page central office operator supervisor for any issues@ night Subjective: Admit Date: [...] abnormality and previous indwelling tubing history of CONTRACT NEGOTIATION SPECIALIST shunt # Bilateral lower extremity wounds-wound care [...] Services This report was created using the [employer] Speaking voice-activated system. Despite prompt dictation and careful editorial review, there may be subtle contextual errors in this report, due to misrecognition of the spoken word. Speech Language Pathology Facility/Department: [facility] MED SURG Dysphagia Treatment Note NAME: [...] and gloves were worn throughout this session. [facility] Anticoagulation Management Service ([facility]) Inpatient Warfarin Consult HPI: Andrew Sifuentes is a 71 y.o. 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 Pt [...] PharmD IRVIN Consult Service is available daily [phone]. Please search for covering pharmacist name via [facility] or Groups --> Pharmacy --> Anti-Coagulation Consult Pharmacist (on 3rd page). If no response via [employer], please page [phone]. Follow up b/l foot [...] yr M with PMH obstructive hydrocephalus s/p CONTRACT NEGOTIATION SPECIALIST shunt in 1987, needing multiple revisions and [...] normal limits and both old and new CONTRACT NEGOTIATION SPECIALIST shunt tubing noted. At present patient is awake, follows commands, was able to tell his name, and that he was in hospital but not oriented to time. Per documentation patient had NCSE in May 2021, was on Vimpat, but it was discontinued as there was no evidence of recurrent seizures in july 2021 by Neurology at [facility], per daughter patient was on Dilantin for 31 yrs. Per daughter patient had seizures in the past and also felt he had staring episodes 10/26/2021 morning. Per daughter patient has been essentially bed bound in [place] since May 2021 but prior to that was independent Impressions: H/O hydrocephalus H/O seizure, H/O stroke Acute DVT H/O PE Plan: -MRI brain w/o contrast. Per daughter she would like MRI brain done to evaluate for strokes -CT head done during this admission today reported no hydrocephalus, ventricles within normal limits and both old and new CONTRACT NEGOTIATION SPECIALIST shunt tubing noted -EEG mild to moderate slow, no seizures reported -Labs reviewed -Hydrocephalus management per Neurosurgery. At present patient does not have hydrocephalus on CT head done this admission. No Neurosurgery services available as inpatient in [facility]. Patient can follow up with Neurosurgery as outpatient and if ends up needing inpatient neurosurgery requirement then may need to be transferred to [facility]. -No clear clinical signs of ventriculitis. Defer evaluation to primary medical team/ID as deemed necessary. -Discussed with daughter in detail on . She was concerned that patient has had h/o seizures, and he has been taken off seizure medication, per note documentation patient had NCSE in May 2021 when he was admitted to [facility]. Per daughter she would want patient [...] interim. This note has been generated using [employer] NLGation software. It may contain incorrect words, punctuation's and spellings that were not noted in the review of the note prior to signing. This note has been generated using Silverpop dictation software. It may contain incorrect words, [...] Radiology ACCESSION EXAM DATE/TIME PROCEDURE ORDERING PROVIDER [id number] 10/21/2021 15:30 EDT CR Calcaneus 2+ Views [id number] -SHRUTHI MALIK Left CPT code 30638 Reason For Exam (CR Calcaneus 2+ Views [...] Result Date: 10/26/2021 [id number] Computed Tomography ACCESSION EXAM DATE/TIME PROCEDURE ORDERING PROVIDER [id number] 10/26/2021 11:[address] Head or Brain w/o JUNIE PINEDA ALLISON Contrast CPT code 41735 Reason For Exam (CT Head or Brain w/o Contrast) hydrocephalus. thank you Report CLINICAL INFORMATION: Hydrocephalus. Shunt. 3 mm axial cuts through the head are obtained without IV contrast. The examination is compared to a previous study dated 06/29/2014. FINDINGS: Old CONTRACT NEGOTIATION SPECIALIST shunt tubing is noted bilaterally. The new [...] are clear. IMPRESSION: 1. Old and new CONTRACT NEGOTIATION SPECIALIST shunt tubing. 2. No hydrocephalus. 3. Atrophy [...] Imaging ACCESSION EXAM DATE/TIME PROCEDURE ORDERING PROVIDER [id number] 10/23/2021 11:08 EDT MRI Abdomen w/o Contrast WING SRIVASTAVA CPT code 70082 Reason For Exam (MRI Abdomen w/o Contrast) [...] Medicine ACCESSION EXAM DATE/TIME PROCEDURE ORDERING PROVIDER [id number] 10/21/2021 07:55 EDT NM Pulmonary Perfusion [id number] MAY BOGGS w/ Vent Aerosol CPT code 40572 A9567 Reason For Exam (NM Pulmonary Perfusion [...] Brachial Indices Extremity Bilateral Result Date: 10/22/2021 [facility] --- Ankle Brachial Index Report Patient DO GurpreetB: 1950 Study 10/21/2021 Name: Andrew Gonzalez (71yrs) Date: Age: 71 Account: [id number] Gender: M Loc: 444W BP: Ordering Physician: Shruthi Malik Black Leather Trimmer: Rody Cross RDMS, RVT Interpreting Physician: Carina Call --- Location: [facility] --- Indications: Foot wounds. Originally ordered as a full PVR. Ordering RECONCILIATION COORDINATOR had to modify the order to ABIs [...] supine position. Images were obtained using a Minuss vascular ultrasound machine. --- Arterial pressure indices: [...] EXTREMITY BILATERAL VENOUS DUPLEX Result Date: 10/21/2021 [facility] --- Lower Extremity Venous Duplex Report Patient DO GurpreetB: 1950 Study 10/21/2021 Name: Andrew Gonzalez (71yrs) Date: Age: 71 Account: [id number] Gender: M Loc: 444 BP: Ordering Physician: May Cash Black Leather Trimmer: Rody Cross RDMS, T Interpreting Physician: Carina Call --- Location: [facility] --- Indications: Bilateral lower leg edema. [...] supine position. Images were obtained using a Minuss vascular ultrasound machine. --- Venous flow and [...] Radiology ACCESSION EXAM DATE/TIME PROCEDURE ORDERING PROVIDER [id number] 10/21/2021 08:16 EDT CR Chest 1 View Frontal [id number] MAY BOGGS CPT code 43781 Reason For Exam (CR Chest 1 View [...] Tomography ACCESSION EXAM DATE/TIME PROCEDURE ORDERING PROVIDER [id number] 10/22/2021 13:[address] Abdomen/Pelvis (No SRIVASTAVA, WING PO, No IV) CPT code 23703 Reason For Exam (CT Abdomen/Pelvis (No PO, [...] 12:48 PM Consults Speech Language Pathology Facility/Department: [facility] MED SURG Dysphagia Treatment Note NAME: [...] reactivity and state change, indicative of a apyd-gh-untdrzxj diffuse encephalopathy of nonspecific etiology. There are [...] Easy to chew diet/cut up. NEVILLE Jones M.A.[facility]/PAVING BLOCK CUTTER Time session ended: 1156 Total session minutes: 23 Images from the original note were not included. Hospitalist Progress Note 10/27/2021 10:40 AM [phone]: Please page al @ [phone] for patient care issues. [phone]: Please page central office operator supervisor for any issues@ night Subjective: Admit Date: [...] Services This report was created using the [employer] Speaking voice-activated system. Despite prompt dictation and careful editorial review, there may be subtle contextual errors in this report, due to misrecognition of the spoken word. [facility] Anticoagulation Management Service ([facility]) Inpatient Warfarin Consult HPI: Andrew Sifuentes is a 71 y.o. 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 Pt [...] PharmD IRVIN Consult Service is available daily [phone]. Please search for covering pharmacist name via [facility] or Groups --> Pharmacy --> Anti-Coagulation Consult Pharmacist (on 3rd page). If no response via [employer] [facility] [employer], please page [phone]. I cleaned under patient's finger nails with soft wipe to remove debrib Also placed dr wash cloth/hand roll in right hand to prevent finger nails cutting into palm. I am unable to cut finger nails related to on Coumadin. I asked Dr. Spargue regarding toenaill and he said because he [...] status with Warfarin. Discussed with patient's staffing consultant. Will continue to monitor. Total visit [...] if concern Hydrocephalus Chronic WOODARD's - Revised CONTRACT NEGOTIATION SPECIALIST shunt - daughter requested that pt have CT / MRI of brain and neurology be consulted, this was done. - "Hydrocephalus management per Neurosurgery. At present patient does not have hydrocephalus on CT head done this morning. No Neurosurgery services available as inpatient in [facility]. Patient can follow up with Neurosurgery as outpatient and if ends up needing inpatient neurosurgery requirement then may need to be transferred to [facility]. " Seizure history, unspecified - daughter [...] get report from nursing. Continue wound care. [facility] Anticoagulation Management Service ([facility]) Inpatient Warfarin Consult HPI: Andrew Sifuentes is a 71 y.o. 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 Pt [...] SNF. 4. Will provide warfarin education including [facility] warfarin booklet, if appropriate. Thank you for this consult Brionna Le, PharmD candidate Josie Gupta RPh, PharmD [facility] Consult Service is available daily [phone]. Please search for covering pharmacist name via [facility] or Groups --> Pharmacy --> Anti-Coagulation Consult Pharmacist (on 3rd page). If no response via [employer], please page [phone]. Moon daughter stated that any of patient's family can call and obtain an update on patient's status. Speech Language Pathology Facility/Department: [facility] MED SURG CLINICAL BEDSIDE SWALLOW EVALUATION [...] a small bore straw. Additionally discussed with PAVING BLOCK CUTTER, agreeable to assess tomorrow. Recent Chest Xray/CT [...] and liquids between bites. Treatment Plan Requires PAVING BLOCK CUTTER Intervention: Yes Duration of Treatment: 2 weeks [...] Education Response: Verbalizes understanding;Needs reinforcement Therapy Time PAVING BLOCK CUTTER Individual Minutes Time In: 826 Time Out: 852 Minutes: 26 NEVILLE Jones 10/26/2021 9:20 AM Comprehensive Nutrition Assessment Type and Reason for Visit: Initial (DT referral for wounds) Nutrition Recommendations/Plan: 1. Recommend to continue: Easy to Chew diet with Thin Liquids as currently ordered and safe for patient to participate in. Discussed with: RN, RECONCILIATION COORDINATOR, and PAVING BLOCK CUTTER. PAVING BLOCK CUTTER to assess tomorrow, best diet and liquid [...] Malnutrition Assessment: Malnutrition Status: Moderate malnutrition (10/25/21 9109) Context: Chronic Illness Findings of the 6 [...] & deltoids),Scapula (trapezius) Fluid Accumulation: Mild Extremities Economic History Teacher Strength: Not Performed Nutrition Assessment: 71 year [...] a small bore straw. Additionally discussed with PAVING BLOCK CUTTER, agreeable to assess tomorrow. Nutrition Related Findings: [...] Anthropometric Measures: Height: 5' 7.01" (170.2 cm) Buchtel Body Weight (IBW): 148 lbs (67 kg) Admission Body Weight: 240 lb (108.9 kg) (stated 10/21/21) Current Body Weight: 205 lb 4 oz (93.1 kg) (10/25/21), 138.7 % IBW. Weight Source: Bed Scale Current BMI (kg/m2): 32.1 Usual Body Weight: 272 lb 11.3 oz (123.7 kg) (05/30/21 and 232.5# noted 08/14/21 at [facility] per EMR Review) % Weight Change (Calculated): -24.7 BMI Categories: Obese Class 1 (BMI 30.0-34.9) Estimated Daily Nutrient Needs: Energy Requirements Based On: Kcal/kg Weight Used for Energy Requirements: Buchtel (67.15 kg) Energy (kcal/day): 3550-4655 (27-32 kcal/kg IBW) --> increased need d/t wounds Weight Used for Protein Requirements: Buchtel (67.15 kg) Protein (g/day): 67-101 (1.0-1.5 g protein/kg IBW) Method Used for Fluid Requirements: Other (Comment) Fluid (ml/day): 0458-3410 mL daily or per MD Nutrition Diagnosis: [...] Plan of Care discussed with: Patient, RN, RECONCILIATION COORDINATOR Edwin Goals: Goals: other (specify) Specify Other [...] to determine Puja Almanza RD, LD Contact: *[phone] Or [facility] Hematology/Oncology Attending Progress Note SUBJECTIVE: Patient seen [...] IRON, TIBC, FERRITIN No results found for: [id number] No results found for: FOLATE PT 15.6 INR 1.5 CA 19 - 9 is 17 Protein S 138% Protein C 186% ASSESSMENT AND PLAN GI input appreciated. Patient continues with subtherapeutic INR. GI input appreciated. Discussed with patient's staffing consultant. Will continue monitor. Total visit time > 35 minutes. [facility] Anticoagulation Management Service ([facility]) Inpatient Warfarin Consult HPI: Andrew Sifuentes is a 71 y.o. 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 Pt [...] PharmD [facility] Consult Service is available daily [phone]. Please search for covering pharmacist name via [facility] or Groups --> Pharmacy --> Anti-Coagulation Consult Pharmacist (on 3rd page). If no response via [facility] [employer], please page [phone]. Progress Note 10/25/2021 9:36 AM Name: Andrew [...] if concern Hydrocephalus Chronic WOODARD's - Revised CONTRACT NEGOTIATION SPECIALIST shunt DC planning - 10/25/21: INR subtherapeutic, [...] if concern Hydrocephalus Chronic WOODARD's - Revised CONTRACT NEGOTIATION SPECIALIST shunt DC planning - Can be DC'd back to ECF once MRI done if no acute findings, MRI is done, defer to hem / onc on plan for that, awaiting chest PA with fluoro Patient seen and chart reviewed. Consult dictated. Will ask GI to assess concerning the etiology of liver lesions. Will continue to monitor. [facility] Anticoagulation Management Service ([facility]) Inpatient Warfarin Consult HPI: Andrew Sifuentes is a 71 y.o. 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 Pt [...] PharmD [facility] Consult Service is available daily [phone]. Please search for covering pharmacist name via [facility] or Groups --> Pharmacy --> Anti-Coagulation Consult Pharmacist (on 3rd page). If no response via [employer] [facility] [employer], please page [phone]. Follow up foot wounds Patient is more alert this morning. Waffle boots are on Ulcer left heel ulcer right foot Foot drop PE, chart reviewed. Patient relates that he does not walk at home. c ontinue wound care. Images from the original note were not included. Hospitalist Progress Note 10/23/2021 1:47 PM [phone]: Please page me ([phone]) or perfect serve me for patient care issues. [phone]: Please page IMS night Hospitalist for any issues. 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 Pt referred to RD for foot ulcers. Occupational Therapy Facility/Department: [facility] MED SURG Occupational Therapy Initial Assessment Name: Andrew Sifuentes : 1950 Date of Service: 10/23/2021 OT eval and treat orders received. Chart reviewed. Per notes pt from [facility], is Boaz lift at baseline, non-ambulatory, and requires assist for all ADLs. Will d/c OT orders. Elizabeth Gutierrez OT Physical Therapy Facility/Department: [facility] MED SURG Physical Therapy Initial Assessment Name: Andrew Sifuentes : 1950 Date of Service: 10/23/2021 PT eval and treat orders received. Chart reviewed. Per notes pt from [facility], is Boaz lift at baseline, non-ambulatory. Will d/c PT orders. Lloyd Silva PT [facility] Anticoagulation Management Service ([facility]) Inpatient Warfarin Consult HPI: Andrew Sifuentes is a 71 y.o. 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 Pt [...] drug interactions and adjust dose accordingly. 3. [facility] will manage while inpatient and sign off at discharge. Patient resides in a SNF. 4. Will provide warfarin education including [facility] warfarin booklet, if appropriate. Thank you for this consult Lisa Forrest RPH, PharmD [facility] Consult Service is available daily [phone]. Please search for covering pharmacist name via [facility] or Groups --> Pharmacy --> Anti-Coagulation Consult Pharmacist (on 3rd page). If no response via [facility], please page [phone]. Department of Podiatry Attending Consult Note Reason for Consult: Wound care Requesting Physician: MD Shailesh CHIEF COMPLAINT: Foot wounds HISTORY OF PRESENT ILLNESS: The patient is a 71 y.o. male with b/l foot wounds. Patient is awake , but not answering questions. 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 Hospitalist Progress Note 10/22/2021 6:33 AM [phone]: Please page me ([phone]) or perfect serve me for patient care issues. [phone]: Please page IMS night Hospitalist for any [...] consider MRI if concern Hydrocephalus - Revised CONTRACT NEGOTIATION SPECIALIST shunt Interval History: No overnight issues. 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 Hospitalist Progress Note 10/21/2021 5:31 PM [phone]: Please page me ([phone]) or perfect serve me for patient care issues. [phone]: Please page IMS night Hospitalist for any [...] Will need chronic OAC Hydrocephalus - Revised CONTRACT NEGOTIATION SPECIALIST shunt Interval History: No overnight issues. 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 Her phone number is [phone] to speak with whomever was attempting to reach out to her. documented in this encounter [employer] Phone: 10-17-2021 Miscellaneous Notes Mr. Sifuentes missed his hospital stay follow-up appointment w. Dr. Lim today. Called to Reschedule. Could not get through. "Subscriber you have dialed not in service" - was the automated voice mail. Unable to leave . No other phone# available. Ramya Negro Infection Control Nurse [facility] documented in this encounter [facility] 08-19-2021 Note [facility] 08-19-2021 Note [facility] 08-18-2021 Note [facility] 08-18-2021 Note [facility] 08-17-2021 Note [facility] 08-17-2021 Note [facility] 08-16-2021 Note [facility] 08-16-2021 Note HNO ID: [id number] Author: Katt Kelsey DO Service: Hospital Medicine Author Type: Physician Type: Plan of Care Filed: 08/16/2021 12:26 PM Note Text: Spoke with RN that line is a PICC. Katt Kelsey DO 08/16/2021 12:26 PM [facility] 08-16-2021 Note [facility] 08-16-2021 Note [facility] 08-15-2021 Note [facility] 08-15-2021 Note [facility] 08-15-2021 Note [facility] 08-14-2021 Note [facility] 08-14-2021 Note [facility] 08-13-2021 Note [facility] 08-13-2021 Note [facility] 08-13-2021 Note [facility] 08-13-2021 Note HNO ID: [id number] Author: Interface Note Service: ? Author Type: ? Type: Progress Notes Filed: 08/13/2021 3:10 AM Note Text: Epic Scheduled Downtime: 08/13/2021 1:08:47 AM to 08/13/2021 2:53:47 AM [facility] 08-12-2021 Note [facility] 08-12-2021 Note [facility] 08-12-2021 Note [facility] 08-11-2021 Note [facility] 08[facility]11-2021 Note [facility] 08-11-2021 Note [facility] 08-11-2021 Note [facility] 08[facility]11-2021 Note [facility] 08-11-2021 Note [facility] 08-10-2021 Note [facility] 08[facility]10-2021 Note [facility] 08-10-2021 Note [facility] 08-10-2021 Note [facility] 08-09-2021 Note HNO ID: [id number] Author: Shannon Brooks RN Service: ? Author Type: Registered Nurse Type: Nursing Progress Note Filed: 08/09/2021 7:33 PM Note Text: Report called to unit [facility] 08-09-2021 Note [facility] 08-09-2021 Note [facility] 08-09-2021 Note [facility] 08-08-2021 Note [facility] 08-08-2021 Note [facility] 08-08-2021 Note [facility] 08-07-2021 Note [facility] 08[facility]07-2021 Note [facility] 08-07-2021 Note [facility] 08[facility]07-2021 Note [facility] 08-07-2021 Note [facility] 08-06-2021 Note [facility] 08-06-2021 Note [facility] 08-06-2021 Note [facility] 08-05-2021 Note [facility] 08[facility]05-2021 Note [facility] 08-05-2021 Note [facility] 08-04-2021 Note [facility] 08[facility]04-2021 Note [facility] 08[facility]04-2021 Note [facility] 08-03-2021 Note [facility] 08[facility]03-2021 Note [facility] 08-03-2021 Note [facility] 08-02-2021 Note [facility] 08-02-2021 Note [facility] 08-02-2021 Note [facility] 08-01-2021 Note [facility] 08[facility]01-2021 Note [facility] 08-01-2021 Note [facility] 08-01-2021 Note [facility] 07-31-2021 Note [facility] 07-31-2021 Note [facility] 07[facility]30-2021 Note [facility] 07-30-2021 Note [facility] 07-30-2021 Note [facility] 07-29-2021 Note [facility] 07-29-2021 Note [facility] 07[facility]29-2021 Note [facility] 07-28-2021 Note [facility] 07-28-2021 Note [facility] 07-28-2021 Note [facility] 07-27-2021 Note [facility] 07-27-2021 Note [facility] 07[facility]27-2021 Note [facility] 07-26-2021 Note [facility] 07[facility]26-2021 Note [facility] 07-26-2021 Note [facility] 07-26-2021 Note [facility] 07-26-2021 Note [facility] 07-25-2021 Note [facility] 07[facility]25-2021 Note [facility] 07-25-2021 Note [facility] 07[facility]25-2021 Note [facility] 07-24-2021 Note [facility] 07-24-2021 Note [facility] 07[facility]24-2021 Note [facility] 07-23-2021 Note [facility] 07[facility]23-2021 Note [facility] 07-23-2021 Note [facility] 07-23-2021 Note [facility] 07[facility]23-2021 Note [facility] 07-22-2021 Note [facility] 07-22-2021 Note [facility] 07[facility]22-2021 Note [facility] 07-21-2021 Note [facility] 07-21-2021 Note [facility] 07-21-2021 Note [facility] 07-21-2021 History of [...] history of fever, elevated WBC, RP hematoma CONTRACT NEGOTIATION SPECIALIST shunt tip grew anaerobic gram positive cocci 06/08/2021 PLAN: CONTRACT NEGOTIATION SPECIALIST shunt tip sent to [facility] main, awaiting cx Continue Meropenem per [...] - following CSF studies; 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 for STAFF DESIGN ENGINEER infection at this time - ID following- Continue antibiotics: Meropenem -CSF leak from EVD site, appreciate NSGY recs> stat repeat CTH on 06/07 d/t concern for CSF leak, cephalematoma, CTH unremarkable -Tolerating TF - SBT WTE - PICC line placed documented as of this encounter (statuses as of 10/17/2021) [facility]03-17-2022 [facility]03-16-2022 [facility]03-16-2022 [facility]03-16-2022 Note [facility]03-16-2022 [facility] 07-19-2021 [facility]03-15-2022 [facility]03-15-2022 [facility]03-14-2022 [facility]03-14-2022 [facility]03-13-2022 [facility]03-13-2022 [facility]03-12-2022 Note [facility]03-12-2022 [facility] 07-15-2021 [facility]03-11-2022 [facility]03-10-2022 [facility]03-10-2022 [facility]03-10-2022 [facility]03-09-2022 [facility]03-09-2022 [facility]03-09-2022 Note [facility]03-09-2022 [facility] 07-12-2021 [facility]03-08-2022 [facility]03-07-2022 [facility]03-07-2022 [facility]03-07-2022 [facility]03-07-2022 [facility]03-06-2022 [facility]03-06-2022 Note [facility]03-05-2022 [facility] 07-09-2021 [facility]03-05-2022 NoteHNO ID: [id number] Author: Lizette Valderrama RN Service: Nursing Author Type: Registered Nurse Type: Nursing Progress Note Filed: 07/09/2021 1:41 AM Note Text: [facility] NoteHNO ID: [id number] Author: Lizette Valderrama RN Service: Nursing Author Type: Registered Nurse Type: Nursing Progress Note Filed: 07/08/2021 8:57 PM Note Text: [address] 2049 back to PACU [facility]03-04-2022 NoteHNO ID: [id number] Author: Sukhi Chery APRN.CNP Service: ? Author Type: Nurse Practitioner Type: Progress Notes Filed: 07/09/2021 6:46 PM Note Text: Connected Care Unit Progress Note Patient Name: Andrew Sifuentes Patient Facility: [facility] Admit Date 06/28/2021 Level of Care: Skilled [...] Dept Phone 07/21/2021 11:00 AM NICOLE LIM [phone] HPI: (Per Dr. Beltran) Andrew Sifuentes is being seen today for prison facility (SNF) admission AND management of weakness, tube feed, infected retroperitoneal infection and seizure. ? This is a 71 year old male who presents from [facility] with primary admitting diagnosis of [...] CT brain concerning for hydrocephalus. Tip of CONTRACT NEGOTIATION SPECIALIST shunt was found to be in the [...] slow to respond. Ordered to transfer to [facility] ED for evaluation of neurological and [...] changes in co (more content not included)... [facility]03-04-2022 [facility]03-04-2022 [facility]03-02-2022 NoteHNO ID: [id number] Author: Sukhi Chery APRN.VICTORIANO Service: ? Author Type: Nurse Practitioner Type: Progress Notes Filed: 07/09/2021 6:20 PM Note Text: Connected Care Unit Progress Note Patient Name: Andrew Sifuentes Patient Facility: [facility] Admit Date 06/28/2021 Level of Care: Skilled [...] Dept Phone 07/21/2021 11:00 AM NICOLE LIM [phone] HPI: (Per Dr. Beltran) Andrew Sifuentes is being seen today for prison facility (SNF) admission AND management of weakness, tube feed, infected retroperitoneal infection and seizure. ? This is a 71 year old male who presents from [facility] with primary admitting diagnosis of [...] CT brain concerning for hydrocephalus. Tip of CONTRACT NEGOTIATION SPECIALIST shunt was found to be in the [...] Pharynx: Oropharynx is clear. (more content not included)...[facility]02-28-2022 NoteHNO ID: [id number] Author: Sukhi Chery APRN.VICTORIANO Service: ? Author Type: Nurse Practitioner Type: Progress Notes Filed: 07/09/2021 6:07 PM Note Text: Connected Care Unit Progress Note Patient Name: Andrew Sifuentes Patient Facility: [facility] Admit Date 06/28/2021 Level of Care: Skilled [...] but nursing notes it was drawn by assembly loader as vancomycin was being infused; reordered trough - PICC Line Intact - No fevers or chills per patient or staff (R53.81) Debility - Certify therapies - Maintain high falls risk precautions - pt/staff verbalize understanding validated via teach back - Monitor safety awareness Appointments for Next 60 Days Date Time Provider Location Dept Phone 07/21/2021 11:00 AM CHANDLERNICOLE [phone] HPI: (Per Dr. Beltran) Andrew Sifuentes is being seen today for prison facility (SNF) admission AND management of weakness, tube feed, infected retroperitoneal infection and seizure. ? This is a 71 year old male who presents from [facility] with primary admitting diagnosis of [...] CT brain concerning for hydrocephalus. 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 OBJECTIVE: Labs/diagnostics: 07/04/2021 Glucose=91 Uc=020 K=3.8 Sm=067 CO2=24 BUN=14 Creatinine=0.5 MTF=418 Ca=9.0 Protein,Total=6.7 Albumin=3.6 CueVdwz=625 AST=15 ALT=21 Bilirubin,Totall=0.5 WBC=10.7 RBC=4.04 Hgb=10.9 Hct=35.3 Unspnkge=150 VancomycinTr (more content not included)...[facility]02-24-2022 NoteHNO ID: [id number] Author: Sukhi Chery APRN.CNP Service: ? Author Type: Nurse Practitioner Type: Progress Notes Filed: 07/09/2021 5:43 PM Note Text: Connected Care Unit Progress Note Patient Name: Andrew Sifuentes Patient Facility: [facility] Admit Date 06/28/2021 Level of Care: Skilled [...] Dept Phone 07/21/2021 11:00 AM NICOLE LIM [phone] HPI: (Per Dr. Beltran) Andrew Sifuentes is being seen today for prison facility (SNF) admission AND management of weakness, tube feed, infected retroperitoneal infection and seizure. ? This is a 71 year old male who presents from [facility] with primary admitting diagnosis of [...] CT brain concerning for hydrocephalus. Tip of CONTRACT NEGOTIATION SPECIALIST shunt was found to be in the [...] uncontrolled pain exacerbations. Medications: Medications listed in [facility] during SNF admission may not be current. Refer to facility record. Patient records, current medications, most recent labs, family/social history (unchanged) Reviewed. Refer to facility records. OBJECTIVE: Labs/diagnostics: 07/01/2021 Glucose=83 Xi=629 K=4.1 Nb=447 CO2=27 BUN=22 Creatinine=0.6 EHV=372 Ca=8.7 WBC=10.8 RBC=3.40 Hgb=9.3 Hct=29.9 Nknjdidg=656 Vital Signs: BP 128/80 Pulse 77 Temp 36.7 ?C (98 ?F) Resp 20 Ht 182.9 cm (6') Wt 113 kg (249 lb 3.2 oz) SpO2 96% BMI 33.80 kg/m? Physical Exam: Physical Exam Vitals reviewed. Constitutional: General: He is not in acute distress. (more content not included)...[facility]02-22-2022 [facility]02-22-2022 [facility]02-21-2022 [facility]02-21-2022 Note [facility]02-20-2022 [facility] 06-26-2021 [facility]02-19-2022 [facility]02-19-2022 [facility]02-18-2022 [facility]02-18-2022 [facility]02-18-2022 [facility]02-17-2022 [facility]02-17-2022 Note [facility]02-17-2022 [facility] 06-22-2021 NoteO ID: [id number] Author: Xiomy England RN Service: Nursing Author Type: Registered Nurse Type: Nursing Progress Note Filed: 06/22/2021 7:22 PM Note Text: RT contacted as pt has wheezing auscultated and same auditory. For prn Treatment.[facility]02-16-2022 [facility]02-16-2022 [facility]02-16-2022 [facility]02-16-2022 [facility]02-16-2022 [facility]02-15-2022 [facility]02-15-2022 Note [facility]02-15-2022 [facility] 06-21-2021 [facility]02-14-2022 [facility]02-14-2022 [facility]02-14-2022 [facility]02-14-2022 [facility]02[facility]14-2022 [facility]02-13-2022 [facility]02-13-2022 Note [facility]02-13-2022 [facility] 06-19-2021 [facility]02-13-2022 [facility]02-12-2022 [facility]02-12-2022 [facility]02-12-2022 [facility]02-12-2022 [facility]02-12-2022 [facility]02-12-2022 Note [facility]02-12-2022 NoteHNO ID: [id number] Author: Interface Note Service: ? Author Type: ? Type: Progress Notes Filed: 06/18/2021 3:10 AM Note Text: Epic Scheduled Downtime: 06/18/2021 1:00:00 AM to 06/18/2021 2:27:00 [facility]02-11-2022 [facility]02-11-2022 Note [facility]02-11-2022 [facility] 06-17-2021 [facility]02-11-2022 [facility]02-11-2022 [facility]02-10-2022 [facility]02-10-2022 [facility]02-10-2022 [facility]02-10-2022 [facility]02-10-2022 Note [facility]02-10-2022 [facility] 06-15-2021 [facility]02-09-2022 NoteHNO ID: [id number] Author: Lamonte Kline DO Service: Neurology ICU Author Type: Resident Type: Plan of Care Filed: 06/15/2021 6:21 PM Note Text: Patient's daughter Melissa updated on plan of care and critical condition, all questions answered.[facility]02-09-2022 [facility]02-09-2022 [facility]02-09-2022 [facility]02-09-2022 [facility]02-09-2022 Note [facility]02-09-2022 [facility] 06-15-2021 [facility]02-08-2022 [facility]02-08-2022 [facility]02[facility]08-2022 [facility]02-08-2022 [facility]02-07-2022 [facility]02-07-2022 [facility]02-07-2022 Note [facility]02-07-2022 [facility] 06-12-2021 [facility]02-06-2022 [facility]02-06-2022 [facility]02-05-2022 [facility]02-05-2022 [facility]02-04-2022 [facility]02-04-2022 [facility]02-04-2022 Note [facility]02-04-2022 [facility] 06-09-2021 [facility]02-03-2022 [facility]02-03-2022 [facility]02-03-2022 [facility]02-02-2022 [facility]02-02-2022 NoteHNO ID: [id number] Author: Luis Diaz RN Service: ? Author Type: Registered Nurse Type: Nursing Progress Note Filed: 06/08/2021 9:23 AM Note Text: Patient off the floor to OR at this time.[facility]02-02-2022 [facility]02-02-2022 [facility] 06-08-2021 NoteHNO ID: [id number] Author: Eloise Samuel RN Service: ? Author Type: Registered Nurse Type: Nursing Progress Note Filed: 06/08/2021 12:46 AM Note Text: Dr. Brito notified of changes throughout shift. [facility] 06-07-2021 NoteHNO ID: [id number] Author: Eloise Samuel RN Service: ? Author Type: Registered Nurse Type: Nursing Progress Note Filed: 06/07/2021 8:01 PM Note Text: Neuro surg FAMILY INTERVENTION SPECIALIST notified of downward deviation of pupils. No new orders at this time.[facility]02-01-2022 [facility]02-01-2022 [facility]02-01-2022 [facility]02-01-2022 [facility]01-31-2022 [facility]01-31-2022 [facility]01-31-2022 Note [facility]01-31-2022 [facility] 06-05-2021 [facility]01-30-2022 [facility]01-30-2022 [facility]01-29-2022 [facility]01-29-2022 NoteHNO ID: [id number] Author: Jermaine Miller PA-C Service: Neurosurgery Author Type: Physician Channel Rebuilder Type: Plan of Care Filed: 06/04/2021 1:59 PM Note Text: Discussed with Dr. Charles CT brain results. At this time, continue with EVD at 5 [facility] 06-04-2021 [facility]01-28-2022 [facility]01-28-2022 NoteHNO ID: [id number] Author: Mauricio Frank DO Service: Neurology ICU Author Type: Physician Type: Plan of Care Filed: 06/03/2021 2:38 PM Note Text: I spoke with Melissa and updated her over the phone. Christopher R Newey, [facility]01-28-2022 [facility]01-28-2022 [facility]01-27-2022 [facility]01-27-2022 [facility]01-27-2022 Note [facility]01-26-2022 [facility] 06-01-2021 [facility]01-26-2022 [facility]01-26-2022 [facility]01-26-2022 [facility]01-25-2022 [facility]01-25-2022 [facility]01-25-2022 [facility]01-25-2022 Note [facility]01-25-2022 [facility] 05-31-2021 [facility] Diagnosis Leg swelling- [...] Evaluation noteNo assessment information available [facility] Work Phone: Evaluation note* Diagnosis Other [...] tract symptoms (LUTS) [email or web address] [facility]* Diagnosis Left flank pain Abdominal pain, unspecified site Calculus of ureter [facility]* Diagnosis Left flank pain- Primary Abdominal pain, unspecified site BPH with urinary obstruction Hypertrophy of prostate with urinary obstruction and other lower urinary tract symptoms (LUTS) History of kidney stones [facility] Name Dates Details Instructions not documented [facility] Work Phone: Instructions* Name Dates Details Instructions not documented [facility] [address] [place] Work Phone: Reason for referral (narrative)No reason for referral information availableWCenterville Work Phone: Advance Directives No Advanced Directives Records FoundDocuments on File Type Date Recorded Patient Bankruptcy Paralegal Expl anation Advance Directives and Living Will Power of Development Educator Documents on File Type Date Recorded Patient Bankruptcy Paralegal Expl anation Advance Directive(s) 06/02/2021 2:45 PM [...] Maker Relationship: 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 Adult Children (quality control representative) Documents on File Type Date Recorded Patient Bankruptcy Paralegal Expl anation ACP-Advance Directive ACP-Power of Development Educator Latest Code Status on File Code Status Date Activated Date Inactivated Comments Full Code 10/21/2021 4:09 AM Healthcare Agents on File Name Relationship Healthcare Agent Relationshi p Communication Melissa Gurpreet Child Primary Decision Maker deann Gurpreet Child Secondary Decision Maker Documents on File Type Date Recorded Patient Bankruptcy Paralegal Expl anation ACP-Advance Directive ACP-Power of Development Educator ACP-Do Not Resuscitate 11/01/2021 7:03 AM Latest Code Status on File Code Status Date Activated Date Inactivated Comments Full Code 10/21/2021 4:09 AM 10/29/2021 7:25 PM Healthcare Agents on File Name Relationship Healthcare Agent Relationshi p Communication Melissakb Dengyer Child Primary Decision Maker deann Dengyer Child Secondary Decision Maker Documents on File Type Date Recorded Patient Bankruptcy Paralegal Expl anation ACP-Do Not Resuscitate 11/03/2021 10:15 AM ACP-Do Not Resuscitate 11/01/2021 7:03 AM Healthcare Agents on File Name Relationship Healthcare Agent Relationshi p Communication Melissakb Dengyer Child Primary Decision Maker deann Dengyer Child Secondary Decision Maker Documents on File Type Date Recorded Patient Bankruptcy Paralegal Expl anation ACP-Do Not Resuscitate 11/03/2021 10:15 [...] Documents on File Type Date Recorded Patient Bankruptcy Paralegal Expl anation DNR (Do Not Resuscitate) 10/31/2021 DNR (Do Not Resuscitate) 10/21/2021 Documents on File Type Date Recorded Patient Bankruptcy Paralegal Expl anation DNR (Do Not Resuscitate) 10/31/2021 [...] 4 5:00am ASSISTED LAB WORK March 19 4 [...] Chief Complaint Admit Date ASSISTED LAB WORK October 09, 2024 5:0 0am LABWORK October 13, 2024 5:00a m ASSISTED LAB WORK October 16, 2024 5: 00am ASSISTED LAB WORK October 20, 2024 4: 00am ASSISTED LAB WORK October 23, 2024 5: 00am ASSISTED LAB WORK October 27, 2024 4: 00am ASSISTED LAB WORK October 30, 2024 6: 35am LABWORK November 03, 2024 5:00 am ASSISTED LAB WORK November 06, 2024 4:0 0am ASSISTED LAB WORK November 10, 2024 4:0 0am ASSISTED LAB WORK November 13, 2024 5: 00am ASSISTED LAB WORK November 17, 2024 5: 00am ASSISTED LAB WORK November 20, 2024 5: 00am ASSISTED LAB WORK November 24, 2024 5: 00am ASSISTED LAB WORK November 27, 2024 5: 00am LABWORK November 28, 2024 5:00 am LABWORK December 01, 2024 5:00 am ASSISTED LAB WORK December 02, 2024 4: 00am ASSISTED LAB WORK December 04, 2024 5: 00am ASSISTED LAB WORK December 08, 2024 5 :00am LABWORK December 11, 2024 6:0 0am ASSISTED LAB WORK December 15, 2024 4:00am ASSISTED LAB WORK December 18, 2024 5:00am ASSISTED LAB WORK December 22, 2024 4:00am LABWORK December 24, 2024 5: 00am ASSISTED LAB WORK December 25, 2024 5:00am ASSISTED LAB WORK December 26, 2024 5:00am LABWORK December 29, 2024 5: 00am ASSISTED LAB WORK January 01, 2025 5:00am ASSISTED LAB WORK January 06 5:00am LABWORK January 08, 2025 5:00am ASSISTED LAB WORK Th[address] 8[address], 202 5 4:00am ASSISTED LAB WORK January 15 5:00am LABWORK January 19, 2025 5:00am ASSISTED LAB WORK January 26 4:00am Chief Complaint Admit Date LABWORK November 03, 2024 5:00 am ASSISTED LAB WORK November 06, 2024 4:0 0am ASSISTED LAB WORK November 10, 2024 4:0 0am ASSISTED LAB WORK November 13, 2024 5: 00am ASSISTED LAB WORK November 17, 2024 5: 00am ASSISTED LAB WORK November 20, 2024 5: 00am ASSISTED LAB WORK November 24, 2024 5: 00am ASSISTED LAB WORK November 27, 2024 5: 00am LABWORK November 28, 2024 5:00 am LABWORK December 01, 2024 5:00 am ASSISTED LAB WORK December 02, 2024 4: 00am ASSISTED LAB WORK December 04, 2024 5: 00am ASSISTED LAB WORK December 08, 2024 5 :00am LABWORK December 11, 2024 6:0 0am ASSISTED LAB WORK December 15, 2024 4:00am ASSISTED LAB WORK December 18, 2024 5:00am ASSISTED LAB WORK December 22, 2024 4:00am LABWORK December 24, 2024 5: 00am ASSISTED LAB WORK December 25, 2024 5:00am ASSISTED LAB WORK December 26, 2024 5:00am LABWORK December 29, 2024 5: 00am ASSISTED LAB WORK January 01, 2025 5:00am ASSISTED LAB WORK January 06 5:00am LABWORK January 08, 2025 5:00am ASSISTED LAB WORK January 12 4:00am ASSISTED LAB WORK January 15 5:00am LABWORK January 19, 2025 5:00am ASSISTED LAB WORK January 22 5:00am ASSISTED LAB WORK January 26 4:00am ASSISTED LAB WORK January 29 7:30am ASSISTED LAB WORK February 02 4:00am ASSISTED LAB WORK February 05, 2025 5:00am ASSISTED LAB WORK February 16, 2025 4:00am Reason for Referral Specialty Diagnoses / Procedures Referred By Contdesiree t Referred To Contact Urology Diagnoses Other fatigue Lanette Munguia DO [address] [place] [address] [facility] [place] [address] [place] [address] Referral ID Status Reason Start Date Expiration Date V isits Requested Visits Authorized [id number] Open Specialty Services Required 11/01/2021 11/01/2022 1 1 Scheduling Instructions [facility] [address] , [address] [place], [place] [address] Specialty Diagnoses / Procedures Referred By Aki t Referred To Contact IP Unit Diagnoses Heel ulceration, left, with unspecified severity (HCC) Henry Hidalgo PA [address] [place] [address] [facility] [address] [place] [id number] Referral ID Status Reason Start Date Expiration Date V isits Requested Visits Authorized [id number] Open Specialty Services Required 12/22/2021 12/22/2022 1 1 Scheduling Instructions [facility] [address] [place] [id number] Comments Please use the parking lot located on [facility] or [facility]. There are handicap parking spots located in a small lot beside the wound care entrance off of [facility]. Please be advised there is a small incline from those handicap spots to our main door. Bring photo ID and insurance card to photocopy. Wear loose fitting clothing (to easily access wound). Bring list of medications (or can be sent by office). Check in at Registration for your first visit. Please call us directly with any questions [phone]. We look forward to helping you heal. Specialty Diagnoses / Procedures Referred By Aki kumari Referred To Contact Radiology Diagnoses Left flank pain Calculus of ureter Procedures CT abdomen pelvis wo IV contrast Rebecca Buck MD [address] [place] [address] Referral ID Status Reason Start Date Expiration Date V isits Requested Visits Authorized [id number] Pending Review 08/13/2023 08/12/2024 1 1 Referral ID Status Reason Start Date Expiration Date Visits Re quested Visits Authorized [id number] Closed 08/17/2023 09/16/2023 1 1 Additional Source Comments Source Comments (unrecognize d section and content) In the event this informatio n is protected by the Federal Confidentiality of Alcohol and Drug Abuse Patient Records regulations: The Federal rules restrict any use of the information to criminally investigate or prosecute any alcohol or drug abuse patient.[facility] the event this information is protected by the Federal Confidentiality of Alcohol and Drug Abuse Patient Records regulations: The Federal rules restrict any use of the information to criminally investigate or prosecute any alcohol or drug abuse patient.[facility] (unrecognized sect ion and content) No Status Records FoundNo Status Records FoundNo Status Records FoundNo Status Records FoundNo Status Records FoundNo Status Records FoundNo Status Records FoundNo Status Records FoundNo Status Records FoundNo Status Records Found INFORMATION SOURCE (unrecogn ized section and content) DATE CREATED AUTHOR 05/20/2021 [facility] DATE CREATED AUTHOR AUTHOR'S ORGANIZ ATION 06/07/2021 [facility] DATE CREATED AUTHOR AUTHOR'S ORGANIZ ATION 08/02/2021 [facility] DATE CREATED AUTHOR AUTHOR'S ORGANIZ ATION 12/09/2021 [facility] DATE CREATED AUTHOR AUTHOR'S ORGANIZ ATION 12/29/2021 [facility] DATE CREATED AUTHOR AUTHOR'S ORGANIZ ATION 02/04/2022 [facility] DATE CREATED AUTHOR AUTHOR'S ORGANIZ ATION 03/03/2022 [facility] DATE CREATED AUTHOR AUTHOR'S ORGANIZ ATION 09/15/2023 [facility] DATE CREATED AUTHOR AUTHOR'S ORGANIZ ATION 03/09/2025 [facility] Reason for Visit (unrecogniz ed section and content) Reason Comments Missed Appointment Reason Comments Leg Swelling Blood clots Reason Comments Altered Mental Status Pt presents to ED via [facility] for complaint listed. Pt is from [facility]. Pt's LKW was 1000 hours today. Per EMS, pt had a - [place]. Pt denies CP, SOB, and N/V. Pt seems slow to respond, slightly confused at this time. Reason Comments Osteomyelitis Patient from [facility], facility did xrays on left lower leg and and have concerns for possible osteomyelitis A&Ox2 to self and place, stated year 2022 [facility] Reason Comments Fall Patient had unwitnes sed fall at [facility] landed on butt. Is on [...] Buck MD [address] [place] [address] Referral ID Status Reason Start Date Expiration Date Visits Re quested Visits Authorized [id number] Closed 08/17/2023 09/16/2023 1 1 Reason Comments [...] Inactive Member Role Status Dates Dr. Monika Stalye MD Primary Care Provider Active Start: August [...] 2024 End: May 15, 2024 Dr. Kvng ONVAK MD Attending Provider Active Start: May 15, [...] Status Dates Carlos NOVAK Attending Provider Active Rn Plastic Surgery Relationship Specialty Start Date End Date Mateus Burris [address] [place] [address] PCP - General Family Practice 11/12/19 Rn Plastic Surgery Relationship Specialty [place] [address] [place] [address] PCP - General Family Medicine 09/09/20 Rn Plastic Surgery Relationship Specialty [place] [address] [place] [address] PCP - General Family Medicine 09/09/20 Rn Plastic Surgery Relationship Specialty [place] [address] [place] [address] PCP - General Family Medicine 09/09/20 Rn Plastic Surgery Relationship Specialty Start Date End Date Carlos Cavazos MD [address] [facility] [address] [place] [address] PCP - General Internal Medicine 02/20/22 Team [...] Monika Staley MD Primary Care Provider Active Rn Plastic Surgery Relationship Specialty Start Date End Date Carlos Cavazos [address] [place] [phone] PCP - General 12/21/21 Rebecca Buck MD [address] [address] Surgeon Urology 06/25/23 Team Status: Inactive Member [...] NOVAK Attending Provider, Referring Provi lupillo Active Rn Plastic Surgery Relationship Specialty Start Date End Date Carlos Cavazos [address] [place] [phone] PCP - General 12/21/21 Rebecca Buck MD [address] [address] Surgeon Urology 06/25/23 Rn Plastic Surgery Relationship Specialty Start Date End Date Carlos Cavazos [address] [place] [phone] PCP - General 12/21/21 Rebecca Buck MD [address] [address] Surgeon Urology 06/25/23 Rn Plastic Surgery Relationship Specialty Start Date End Date MaribelCarlos meredith [address] [place] [phone] PCP - General 12/21/21 Rebecca Buck MD [address] [address] Surgeon Urology 06/25/23 Rn Plastic Surgery Relationship Specialty Start Date End Date Carlos Cavazos [address] [place] [phone] PCP - General 12/21/21 Rebecca Buck MD [address] [address] Surgeon Urology 06/25/23 Rn Plastic Surgery Relationship Specialty Start Date End Date Carlos Cavazos [address] [place] [phone] PCP - General 12/21/21 Rebecca Buck MD [address] [address] Surgeon Urology 06/25/23 Rn Plastic Surgery Relationship Specialty Start Date End Date Carlos Cavazos [address] [place] [phone] PCP - General 12/21/21 Rebecca Buck MD [address] [address] Surgeon Urology 06/25/23 Team Status: Inactive Member Role Status Dates Dr. Monika Staley MD Primary Care Provider Active Start: March 13, 2024 End: March 13, 2024 [facility] Attending Provider Active Start: March 13, 2024 [...] March 17, 2024 End: March 17, 2024 [facility] Attending Provider Active Start: March 17, 2024 End: March 17, 2024 Team Status: Inactive Member Role Status Dates Dr. Monika Staley MD Primary Care Provider Active Start: March 18, 2024 End: March 18, 2024 [facility] Attending Provider Active Start: March 18, 2024 [...] March 20, 2024 End: March 20, 2024 [facility] Attending Provider Active Start: March 20, 2024 [...] March 27, 2024 End: March 27, 2024 [facility] Attending Provider Active Start: March 27, 2024 [...] Care Provider Active Start: July 07, 2024 [facility] Attending Provider Active Start: July 07, 2024 Team Status: Active Member Role Status Dates Dr. Monika Staley MD Primary Care Provider Active Start: July 11, 2024 Carlos NOVAK Attending Provider Active Sta rt: July 11, 2024 Team Status: Active Member Role Status Dates Dr. Monika Staley MD Primary Care Provider Active Start: July 07, 2024 Karon NOVKA MD Attending Provider Active Start: July 07, [...] Status: Active Member Role/Relationship Status Dates Dr. Moniak Staley MD Primary care physician Activ e [...] Activ e Start: December 25, 2024 Karon NOAVK MD Attending physician Active Start: December 25, [...] BE BASED ON THE PRIMARY CLINICAL RECORDS. [facility] [employer] [facility]. provides no warranty or guarantee of the accuracy or completeness of information in this document.
[2025-03-12 09:52] LABS: Prothrombin Time (Protime)PT. 22.8 SECONDS (11.7-14.9)
== END ==
LOC: OLS.SANC 05:00
PROVIDERS: PCP General Practice
DX: Z79.01 Long term (current) use of 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 (principal)
CPT/HCPCS: 36415; 85610

== ENCOUNTER → 2025-03-13 05:00 | Outpatient (REF) | payer MEDICARE, MEDICAID, SELFPAY ==
--- OUTSIDE RECORDS SUMMARY | 2025-03-13 04:32 | XMS RPT_ITS | CCD ---
Author Organization [facility] Care Team Providers Care Hide Sorter Name Role Phone Mateus Burris Primary Care [...] Provider Monika Staley MD Primary Care Provider [phone] Carlos Cavazos Primary Care Unavailable Carlos Cavazos Referring Unavailable Cliff Espinoza Attending Unavailable Carlos Cavazos Primary Care Unavailable Carlos Cavazos Referring Unavailable Carlos Cavazos Attending Unavailable Carlos Cavazos Attending Unavailable Carlos Cavazos Primary Care Unavailable Carlos Cavazos Referring Unavailable PROVIDER, UNKNOWN Referring Unavailable Mateus Burris Primary Care Unavailable Karon Corrales Attending Unavailable Carlos Cavazos MD Primary Care Provider [phone] PROVIDER, UNKNOWN Primary Care Unavailable PROVIDER, UNKNOWN Referring Unavailable LANETTE MUNGUIA Attending Unavailable SHARON HSIEH Attending Jeanine vailable PROVIDER, UNKNOWN Primary Care Unavailable PROVIDER, UNKNOWN Referring Unavailable PROVIDER, UNKNOWN Referring Unavailable MATEUS BURRIS Primary Care Unavailabl DANTE Barrera Attending Unavailable Kenny, Carlos Primary Care Provider [phone] Quinn VALLADARES, Rebecca L Unavailable Quinn VALLADARES, Rebecca L Unavailable REBECCA BUCK Attending Unavailable REBECCA BUCK Referring Unavailable CARLOS CAVAZOS Primary Care Unavailable REBECCA BUCK Attending Unavailable KENNY, CARLOS Primary Care Unavailable REBECCA BUCK Attending Unavailable KENNY, CARLOS Primary Care Unavailable Luís VALLADARES, Dr. Monika Horner Primary Care Provider [facility] Attending Provider [phone] Carlos Nelson Attending Provider Jonh Pascual MD, [...] Horner Primary Care Provider Andressa VALLADARES, Dr. aClderon Attending Provider Jany Staley MD, Dr. Monika Horner Primary Care Provider Andressa VALLADARES, Dr. Calderon Attending Provider Jeanineva evan Staley MD, Dr. Monika Horner Primary Care Provider Andressa VALLADARES, Dr. Calderon Attending Provider Unava ilable Carlos Nelson Attending Provider Jonh Cardoza MD, Dr. Monika Horner Primary Care Provider Andressa VALLADARES, Dr. Calderon Attending Provider Unava ilable Carlos Nelson Attending Provider Jonh Cardoza MD, Dr. Monika Horner Primary Care Provider Andressa VALLADARES, Dr. Calderon Attending Provider Jeanineva evan Staley MD, Dr. Monika Horner Primary Care Provider Carlos Nelson Attending Provider Jonh Cardoza MD, Dr. Monika Horner Primary Care Physician Sara VALLADARES, Karon Attending Physician Unav ailCarlos Anglin Attending Physician Camelia Corrales MD, Karon Referring Provider Unava evan Staley MD, Dr. Monika Horner Primary Care Physician Carlos Nelson Attending Physician Unavailgiovanny Corrales MD, Karon Attending Physician Unav mike Corrales MD, Karon Referring Provider Unava ilKaron Landa Attending Unavail able Luís, Monika Horner Primary Care Unavailable Carlos Nelson Attending Unavailable Luís, Monika Horner Primary Care Unavailable Karon Shah Attending Unavail able Monika Staley Primary Care Unavailable Carlos Nelson Attending Unavailable Luís, Monika Horner Primary Care Unavailable Crisostomo OLS, Babbaljeet Attending [...] Luís, Shiela Primary Care Unavailable [facility] [place] Attending Tricia bustamantele Luís, Shiela Primary Care [...] Unavailable Mukkamalla OLS, Mahaveer Attending Unavail able Andressa OLS Kvng Attending Unavailable Luís, Shiela Primary Care [...] Care Unavailable Crisostomo OLS, Elizabethet Attending Unavailable Crisostomo OLS, Babbaljeet Referring Unavailable [...] Luís, Shiela Primary Care Unavailable [facility] [place] Attending Unavai lable Luís, Shiela Primary Care Unavailable [facility] [place] Attending Unavai lable Luís, Shiela Primary Care [...] Unavail able Luís, Shiela Primary Care Unavailable [facility] [place] Attending Unavai lable Luís, Shiela Primary Care Unavailable CrisostomoKvng Levy Attending Unavailable Luís, Shiela Primary Care Unavailable [facility] [place] Attending Unavai lable Luís, Shiela Primary Care [...] OLS, Carlaaveer Attending Unavail able Katsaros OLS, Peter Attending Unavailable Luís, Shiela Primary Care Unavailable Luís, Shiela Primary Care Unavailable Mukkamalla OLS, Melindaer Attending Unavail able Katsaros OLS, Carlos Attending Unavailable Luís, Shiela Primary Care Unavailable Katsaros OLS, Peter Attending Unavailable Luís, Shiela Primary Care Unavailable Luís, Shiela Primary Care Unavailable Mukkamalla OLS, Melindaer Attending Unavail able Katsaros OLS, Carlos Attending [...] Unavailable Mukkamalla OLS, Carlaaveer Attending Unavail able KatCarlos Flood Attending Unavailable Luís, Shiela Primary Care Unavailable Mukkamalla OLS, Melindaer Attending Unavail able Luís, Shiela Primary Care Unavailable Mukkamalla OLS, Carlaaveer Referring Unavail able Mukkamalla OLS, Carlaaveer Attending Unavail able Luís, Shiela Primary Care Unavailable Allergies Allergy Classification Reported Allergen(s) Allergy Type Date of Onset Reaction(s) Facility (13 sources) Morphine Drug Allergy 5 [facility] Work Phone: (15 sources) Alcohol Propensity to adverse reactions to drug 3 Rash, Hives, Other: See Comments, Other [facility] Work Phone: (1 source) Latex Drug Allergy 0 Rash [facility] (8 sources) Cortisone Drug Allergy 2 [facility] (7 sources) Latex Allergy to substance 0 Rash [facility] Medications Current Medications Medication Drug Class(es) Dates Sig (Normalized) Sig (Original) Acetaminophen (10 sources) Start: 10-21-2021 acetaminophen (TYLENOL) tablet 650 mg Start: 09-14-2021 acetaminophen (TYLENOL) 325 MG tablet 650 mg every 6 hours as needed 0 09/14/2021 Active take 2 tablets by [facility] every eight hours acetaminophen (TYLENOL) 325 [...] Start: 11-01-2021 take 1 capsule by mo [facility] once daily tamsulosin (FLOMAX) 0.4 [...] on above: Take 1 capsule by mo [facility] three times daily. Complete Multi-Vitamin [...] Active docusate sodium 50 mg / sennosides, [facility] 8.6 mg oral tablet (1 source) Start: [...] Units subcutaneously with meals and at bedtime. Lithuanian Panax Ginseng 100 MG CAPS (8 sources) Lithuanian Panax Ginseng 100 MG CAPS Quantity: 0 Refills: 0 Ordered: 06-Nov-2019 DO Active [place]ian Panax Ginseng 100 MG Oral Capsule (4 sources) Lithuanian Panax Ginseng 100 MG Oral Capsule Refills: 0 Active [place]ian Panax Gin mayuri 100 MG Oral Capsule Refills: 0 DO Active [place]ian Panax Ginseng 100 MG Oral Capsule (2 sources) Lithuanian Panax Gin mayuri 100 MG Oral Capsule [...] once daily. 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 0 Active Comment on above: Take by mouth. petrolatum 0.41 mg/mg topical ointment (1 source) Start : 08-20 white petrolatum (AQUAPHOR) 41 % topical ointment Apply to affected area once daily. 0 08/20/2021 Active Comment on above: Apply to affected ar ea once daily. 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, [address] PT Coag (PPP) [Time] 22.8 s High 11.7-14.9 [facility] Comment on above: Order Comment: 411.2 Performed By: #### L 300.3900 ####[facility] [address] [place], [address] Prothrombin Time w/INRon INR Coag (PPP) [Relative time] 1.7 {INR} Normal [facility] Comment on above: Order Comment: 411-2 Performed By: #### L 300.3900 ####[facility] [address] [place], [address] PT Coag (PPP) [Time] 20.5 s High 11.7-14.9 [facility] Comment on above: Order Comment: 411-2 Performed By: #### L 300.3900 ####[facility] [address] [place], [address] Prothrombin Time w/INRon INR Coag (PPP) [Relative time] 1.5 {INR} Normal [facility] Comment on above: Order Comment: 411.2 Performed By: #### L 300.3900 ####[facility] [address] [place], [address] PT Coag (PPP) [Time] 18.4 s High 11.7-14.9 [facility] Comment on above: Order Comment: 411.2 Performed By: #### L 300.3900 ####[facility] [address] [place], [address] Prothrombin Time w/INRon INR Coag (PPP) [Relative time] 1.8 {INR} Normal [facility] Comment on above: Order Comment: 411.2 Performed By: #### L 300.3900 ####[facility] [address] [place], [address] PT Coag (PPP) [Time] 21.2 s High 11.7-14.9 [facility] Comment on above: Order Comment: 411.2 Performed By: #### L 300.3900 ####[facility] [address] [place], [address] International normalized rat io (INR) calculationOrdered By: Carlos Cavazos on 03-02-2025 INR Coag (Bld) [Relative time] 2.2 {INR} [facility] Prothrombin Time w/INRon INR Coag (PPP) [Relative time] 2.2 {INR} Normal [facility] Comment on above: Order Comment: 411-2 Performed By: #### L 300.3900 ####[facility] [address] [place], [address] Prothrombin timeOrdered By: Carlos Cavazos on 03-02-2025 PT Coag (PPP) [Time] 25.3 s High 11.7-14.9 [facility] Comment on above: Order Comment: 411-2 Performed By: #### L 300.3900 ####[facility] [address] [place], [address] International normalized rat io (INR) calculationOrdered By: Karon Corrales on 02-26-2025 INR Coag (Bld) [Relative time] 2.2 {INR} [facility] Prothrombin Time w/INRon INR Coag (PPP) [Relative time] 2.2 {INR} Normal [facility] Comment on above: Order Comment: 411.2 Performed By: #### L 300.3900 ####[facility] [address] [place], [address] PT Coag (PPP) [Time] 24.5 s High 11.7-14.9 [facility] Comment on above: Order Comment: 411.2 Performed By: #### L 300.3900 ####[facility] [address] [place], [address] Prothrombin timeOrdered By: Karon Corrales on 02-26-2025 PT Coag (PPP) [Time] 24.5 s High 11.7-14.9 [facility] International normalized rat io (INR) calculationOrdered By: Karon Corrales on 02-23-2025 INR Coag (Bld) [Relative time] 2.0 {INR} [facility] Prothrombin Time w/INRon INR Coag (PPP) [Relative time] 2.0 {INR} Normal [facility] Comment on above: Order Comment: 411.2 Performed By: #### L 300.3900 ####[facility] [address] [place], [address] PT Coag (PPP) [Time] 23.5 s High 11.7-14.9 [facility] Comment on above: Order Comment: 411.2 Performed By: #### L 300.3900 ####[facility] [address] [place], [place], [address] Prothrombin timeOrdered By: Karon Corrales on 02-23-2025 PT Coag (PPP) [Time] 23.5 s High 11.7-14.9 [facility] International normalized rat io (INR) calculationOrdered By: Karon Corrales on 02-19-2025 INR Coag (Bld) [Relative time] 1.9 {INR} [facility] Prothrombin Time w/INRon INR Coag (PPP) [Relative time] 1.9 {INR} Normal [facility] Comment on above: Order Comment: 411.2 Performed By: #### L 300.3900 ####[facility] [address] [place], [place], [id number] PT Coag (PPP) [Time] 21.8 s High 11.7-14.9 [facility] Comment on above: Order Comment: 411.2 Performed By: #### L 300.3900 ####[facility] [address] [place], [place], [id number] Prothrombin timeOrdered By: Karon Corrales on 02-19-2025 PT Coag (PPP) [Time] 21.8 s High 11.7-14.9 [facility] International normalized rat io (INR) calculationOrdered By: Karon Corrales on 02-16-2025 INR Coag (Bld) [Relative time] 1.5 {INR} [facility] Prothrombin Time w/INRon INR Coag (PPP) [Relative time] 1.5 {INR} Normal [facility] Comment on above: Order Comment: 411.2 Performed By: #### L 300.3900 ####[facility] [address] [place], [place], [phone]) PT Coag (PPP) [Time] 18.6 s High 11.7-14.9 [facility] Comment on above: Order Comment: 411.2 Performed By: #### L 300.3900 ####[facility] [address] [place], [place], [phone] Prothrombin timeOrdered By: Karon Corrales on 02-16-2025 PT Coag (PPP) [Time] 18.6 s High 11.7-14.9 [facility] International normalized rat io (INR) calculationOrdered By: Karon Corrales on 02-12-2025 INR Coag (Bld) [Relative time] 2.5 {INR} [facility] Prothrombin Time w/INRon INR Coag (PPP) [Relative time] 2.5 {INR} Normal [facility] Comment on above: Order Comment: 411.2 Performed By: #### L 300.3900 ####[facility] [address] [place], [place], [phone] PT Coag (PPP) [Time] 27.5 s High 11.7-14.9 [facility] Comment on above: Order Comment: 411.2 Performed By: #### L 300.3900 ####[facility] [address] [place], [place], [phone] Prothrombin timeOrdered By: Karon Corrales on 02-12-2025 PT Coag (PPP) [Time] 27.5 s High 11.7-14.9 [facility] International normalized rat io (INR) calculationOrdered By: Carlos Cavazos on 02-09-2025 INR Coag (Bld) [Relative time] 2.5 {INR} [facility] Prothrombin Time w/INRon INR Coag (PPP) [Relative time] 2.5 {INR} Normal [facility] Comment on above: Order Comment: 411-2 Performed By: #### L 300.3900 ####[facility] [address] [place], [address] INR Normal [facility] Comment on above: Order Comment: 411.2 Result Comment: MISS ING TUBE Performed By: #### L 300.3900 ####[facility] [address] [place], [address] PROTIME Normal 11.7-14.9 [facility] Comment on above: Order Comment: 411.2 Result Comment: MISS ING TUBE Performed By: #### L 300.3900 ####[facility] [address] [place], [address] Prothrombin timeOrdered By: Carlos Cavazos on 02-09-2025 PT Coag (PPP) [Time] 27.2 s High 11.7-14.9 [facility] Comment on above: Order Comment: 411-2 Performed By: #### L 300.3900 ####[facility] [address] [place], [place], [phone] International normalized rat io (INR) calculationOrdered By: Karon Corrales on 02-05-2025 INR Coag (Bld) [Relative time] 2.5 {INR} [facility] Prothrombin Time w/INRon INR Coag (PPP) [Relative time] 2.5 {INR} Normal [facility] Comment on above: Order Comment: 411.2 Performed By: #### L 300.3900 ####[facility] [address] [place], [address] PT Coag (PPP) [Time] 27.6 s High 11.7-14.9 [facility] Comment on above: Order Comment: 411.2 Performed By: #### L 300.3900 ####[facility] [address] [place], [address] Prothrombin timeOrdered By: Karon Corrales on 02-05-2025 PT Coag (PPP) [Time] 27.6 s High 11.7-14.9 [facility] International normalized rat io (INR) calculationOrdered By: Karon Corrales on 02-02-2025 INR Coag (Bld) [Relative time] 2.4 {INR} [facility] Prothrombin Time w/INRon INR Coag (PPP) [Relative time] 2.4 {INR} Normal [facility] Comment on above: Order Comment: 411.2 Performed By: #### L 300.3900 ####[facility] [address] [place], [place], [phone] PT Coag (PPP) [Time] 26.8 s High 11.7-14.9 [facility] Comment on above: Order Comment: 411.2 Performed By: #### L 300.3900 ####[facility] [address] [place], [place], [phone]) Prothrombin timeOrdered By: Karon Corrales on 02-02-2025 PT Coag (PPP) [Time] 26.8 s High 11.7-14.9 [facility] International normalized rat io (INR) calculationOrdered By: Karon Corrales on 01-29-2025 INR Coag (Bld) [Relative time] 2.7 {INR} [facility] Prothrombin Time w/INRon INR Coag (PPP) [Relative time] 2.7 {INR} Normal [facility] Comment on above: Performed By: #### L 300.3900 ####[facility] [address] [place], [place], [phone] PT Coag (PPP) [Time] 29.1 s High 11.7-14.9 [facility] Comment on above: Performed By: #### L 300.3900 ####[facility] [address] [place], [place], [phone] Prothrombin timeOrdered By: Karon Corrales on 01-29-2025 PT Coag (PPP) [Time] 29.1 s High 11.7-14.9 [facility] International normalized rat io (INR) calculationOrdered By: Karon Corrales on 01-26-2025 INR Coag (Bld) [Relative time] 2.0 {INR} [facility] Prothrombin Time w/INRon INR Coag (PPP) [Relative time] 2.0 {INR} Normal [facility] Comment on above: Order Comment: 411.2 Performed By: #### L 300.3900 ####[facility] [address] [place], [place], [phone]) PT Coag (PPP) [Time] 23.1 s High 11.7-14.9 [facility] Comment on above: Order Comment: 411.2 Performed By: #### L 300.3900 ####[facility] [address] [facility] [phone]) Prothrombin timeOrdered By: Karon Corrales on 01-26-2025 PT Coag (PPP) [Time] 23.1 s High 11.7-14.9 [facility] International normalized rat io (INR) calculationOrdered By: Karon Corrales on 01-22-2025 INR Coag (Bld) [Relative time] 2.4 {INR} [facility] Prothrombin Time w/INRon INR Coag (PPP) [Relative time] 2.4 {INR} Normal [facility] Comment on above: Order Comment: 411.2 Performed By: #### L 300.3900 ####[facility] [address] [place], [place], [phone] PT Coag (PPP) [Time] 26.6 s High 11.7-14.9 [facility] Comment on above: Order Comment: 411.2 Performed By: #### L 300.3900 ####[facility] [address] [place], [place], [phone] Prothrombin timeOrdered By: Karon Corrales on 01-22-2025 PT Coag (PPP) [Time] 26.6 s High 11.7-14.9 [facility] International normalized rat io (INR) calculationOrdered By: Carlos Cavazos on 01-19-2025 INR Coag (Bld) [Relative time] 2.7 {INR} [facility] Prothrombin Time w/INRon INR Coag (PPP) [Relative time] 2.7 {INR} Normal [facility] Comment on above: Order Comment: 411-2 Performed By: #### L 300.3900 ####[facility] [address] [place], [place], [address] PT Coag (PPP) [Time] 29.7 s High 11.7-14.9 [facility] Comment on above: Order Comment: 411-2 Performed By: #### L 300.3900 ####[facility] [address] [place], [place], [phone] Prothrombin timeOrdered By: Carlos Cavazos on 01-19-2025 PT Coag (PPP) [Time] 29.7 s High 11.7-14.9 [facility] International normalized rat io (INR) calculationOrdered By: Karon Corrales on 01-15-2025 INR Coag (Bld) [Relative time] 2.4 {INR} [facility] Prothrombin Time w/INRon INR Coag (PPP) [Relative time] 2.4 {INR} Normal [facility] Comment on above: Order Comment: 411.1 Performed By: #### L 300.3900 ####[facility] [address] [place], [address] PT Coag (PPP) [Time] 26.6 s High 11.7-14.9 [facility] Comment on above: Order Comment: 411.1 Performed By: #### L 300.3900 ####[facility] [address] [place], [address] Prothrombin timeOrdered By: Karon Corrales on 01-15-2025 PT Coag (PPP) [Time] 26.6 s High 11.7-14.9 [facility] KEPPRA (LEVETIRACETAM)on KEPPRA 30.1 ug/mL Normal 10.0-40.0 [facility] Comment on above: Order Comment: 411.1 Result Comment: Perf ormed at: - [facility] [address] [id number] Director: Alpesh Vázquez MD, Phone: [phone] Performed By: #### L 300.3900, L3310.0000 ####[facility] [address] [place], [place], [address] International normalized rat io (INR) calculationOrdered By: Karon Corrales on 01-12-2025 INR Coag (Bld) [Relative time] 2.3 {INR} [facility] LevetiracetamOrdered By: Carla Corrales on 01-12-2025 levETIRAcetam [Mass/Vol] 30.1 ug/mL 10.0-40.0 [facility] Comment on above: Performed at: [facility] [address] [id number] Director: Alpesh Vázquez MD, Phone: [phone] Prothrombin Time w/INRon INR Coag (PPP) [Relative time] 2.3 {INR} Normal [facility] Comment on above: Order Comment: 411.1 Performed By: #### L 300.3900, L3310.0000 ####[facility] [address] [place], [place], [address] PT Coag (PPP) [Time] 26.1 s High 11.7-14.9 [facility] Comment on above: Order Comment: 411.1 Performed By: #### L 300.3900, L3310.0000 ####[facility] [address] [place], [address] Prothrombin timeOrdered By: Karon Corrales on 01-12-2025 PT Coag (PPP) [Time] 26.1 s High 11.7-14.9 [facility] KEPPRA (LEVETIRACETAM)on KEPPRA 27.6 ug/mL Normal 10.0-40.0 [facility] Comment on above: Order Comment: 411.1 Result Comment: Perf ormed at: [facility] [address] [id number] Director: Alpesh Vázquez MD, Phone: [phone] Performed By: #### L 3310.0000, L362.5707 ####[facility] [address] [place], [place], [id number] International normalized rat io (INR) calculationOrdered By: Karon Corrales on 01-08-2025 INR Coag (Bld) [Relative time] 2.2 {INR} [facility] Prothrombin Time w/INRon INR Coag (PPP) [Relative time] 2.2 {INR} Normal [facility] Comment on above: Order Comment: 411.1 Performed By: #### L 300.9066 ####[facility] [address] [place], [place], [phone] PT Coag (PPP) [Time] 24.5 s High 11.7-14.9 [facility] Comment on above: Order Comment: 411.1 Performed By: #### L 300.3900 ####[facility] [address] [place], [place], [address] Prothrombin timeOrdered By: Karon Corrales on 01-08-2025 PT Coag (PPP) [Time] 24.5 s High 11.7-14.9 [facility] International normalized rat io (INR) calculationOrdered By: Karon Corrales on 01-06-2025 INR Coag (Bld) [Relative time] 3.2 {INR} [facility] LevetiracetamOrdered By: Carla Corrales on 01-06-2025 levETIRAcetam [Mass/Vol] 27.6 ug/mL 10.0-40.0 [facility] Comment on above: Performed at: [address] [id number] Director: Alpesh Vázquez MD, Phone: [phone] Prothrombin Time w/INRon INR Coag (PPP) [Relative time] 3.2 {INR} Normal [facility] Comment on above: Order Comment: 411.1 Performed By: #### L 3310.0000, L300.3900 ####[facility] [address] [place], [place], [address] PT Coag (PPP) [Time] 33.1 s High 11.7-14.9 [facility] Comment on above: Order Comment: 411.1 Performed By: #### L 3310.0000, L300.3900 ####[facility] [address] [place], [place], [id number] Prothrombin timeOrdered By: Karon Corrales on 01-06-2025 PT Coag (PPP) [Time] 33.1 s High 11.7-14.9 [facility] International normalized rat io (INR) calculationOrdered By: Karon Corrales on 01-01-2025 INR Coag (Bld) [Relative time] 2.7 {INR} [facility] Prothrombin Time w/INRon INR Coag (PPP) [Relative time] 2.7 {INR} Normal [facility] Comment on above: Order Comment: 411.1 Performed By: #### L 300.3900 ####[facility] [address] [place], [place], [phone] Prothrombin timeOrdered By: Karon Corrales on 01-01-2025 PT Coag (PPP) [Time] 29.1 s High 11.7-14.9 [facility] Comment on above: Order Comment: 411.1 Performed By: #### L 300.3900 ####[facility] [address] [place], [address] KEPPRA (LEVETIRACETAM)on KEPPRA 31.8 ug/mL Normal 10.0-40.0 [facility] Comment on above: Order Comment: 411-1 Result Comment: Perf ormed at: [facility] [id number] Director: Alepsh Vázquez MD, Phone: [phone] Performed By: #### L 3310.0000, L300.3900 ####[facility] [address] [place], [address] International normalized rat io (INR) calculationOrdered By: Carlos Cavazos on 12-29-2024 INR Coag (Bld) [Relative time] 3.3 {INR} [facility] KEPPRA (LEVETIRACETAM)on KEPPRA 33.3 ug/mL Normal 10.0-40.0 [facility] Comment on above: Order Comment: 411.1 Result Comment: Perf ormed at: [employer] [id number] Director: Alpesh Vázquez MD, Phone: [phone] Performed By: #### L 3310.0000 ####[facility] [address] [place], [address] LevetiracetamOrdered By: Ted Cavazos on 12-29-2024 levETIRAcetam [Mass/Vol] 31.8 ug/mL 10.0-40.0 [facility] Comment on above: Performed at: [address] [id number] Director: Alpesh Vázquez MD, Phone: [phone] Prothrombin Time w/INRon INR Coag (PPP) [Relative time] 3.3 {INR} Normal [facility] Comment on above: Order Comment: 411-1 Performed By: #### L 3310.0000, L300.3900 ####[facility] [address] [place], [address] Prothrombin timeOrdered By: Carlos Cavazos on 12-29-2024 PT Coag (PPP) [Time] 34.0 s High 11.7-14.9 [facility] Comment on above: Order Comment: 411-1 Performed By: #### L 3310.0000, L300.3900 ####[facility] [address] [place], [address] LevetiracetamOrdered By: Carla Corrales on 12-26-2024 levETIRAcetam [Mass/Vol] 33.3 ug/mL 10.0-40.0 [facility] Comment on above: Performed at: [address] [id number] Director: Alpesh Vázquez MD, Phone: [phone] International normalized rat io (INR) calculationOrdered By: Karon Corrales on 12-25-2024 INR Coag (Bld) [Relative time] 2.8 {INR} [facility] Prothrombin Time w/INRon INR Coag (PPP) [Relative time] 2.8 {INR} Normal [facility] Comment on above: Order Comment: 411.1 Performed By: #### L 300.3900 ####[facility] [address] [place], [address] Prothrombin timeOrdered By: Karon Corrales on 12-25-2024 PT Coag (PPP) [Time] 30.0 s High 11.7-14.9 [facility] Comment on above: Order Comment: 411.1 Performed By: #### L 300.3900 ####[facility] [address] [place], [address] Anion gap in Serum or Plasma Ordered By: Carlos Cavazos on 12-24-2024 Anion gap [Moles/Vol] 13 mmol/L - [facility] BUN/creatinine ratioOrdered By: Carlos Cavazos on 12-24-2024 Urea nitrogen/Creatinine [Mass ratio] 19.2 mg/mg 02-23 [facility] Basic Metabolic Profile (BMP )on 12-24-2024 BUN/CRE 19.2 RATIO Normal 02-23 [facility] Comment on above: Order Comment: 411-1 Performed By: #### L 500.2500, L100.0500 ####[facility] [address] [place], [address] Calcium [Mass/Vol] 8.8 mg/dL Normal 7.6-11.0 [facility] Comment on above: Order Comment: 411-1 Performed By: #### L 500.2500, L100.0500 ####[facility] [address] [place], [address] Chloride [Moles/Vol] 103 mmol/L Normal 98-108 [facility] Comment on above: Order Comment: 411-1 Performed By: #### L 500.2500, L100.0500 ####[facility] [address] [place], [address] CO2 [Moles/Vol] 23.7 mmol/L Normal 21.0-32.0 [facility] Comment on above: Order Comment: 411-1 Performed By: #### L 500.2500, L100.0500 ####[facility] [address] [place], [address] Creatinine [Mass/Vol] 0.82 mg/dL Normal 0.70-1.20 [facility] Comment on above: Order Comment: 411-1 Performed By: #### L 500.2500, L100.0500 ####[facility] [address] [place], [address] GAP 13 Normal - [facility] Comment on above: Order Comment: 411-1 Performed By: #### L 500.2500, L100.0500 ####[facility] [address] [place], [address] GFR/1.73 sq M.predicted among non-blacks MDRD (S/P/Bld) [Vol rate/Area] 93 mL/min/{1.73_m2} Normal >60 [facility] Comment on above: Order Comment: 411-1 Result Comment: mL/m in/1.73m2 CKD-EPI Creatinine Equation (2020) Performed By: #### L 500.2500, L100.0500 ####[facility] [address] [place], [address] Glucose [Mass/Vol] 88 mg/dL Normal 70-99 [facility] Comment on above: Order Comment: 411-1 Performed By: #### L 500.2500, L100.0500 ####[facility] [address] [place], [address] Potassium [Moles/Vol] 4.2 mmol/L Normal 3.3-5.1 [facility] Comment on above: Order Comment: 411-1 Performed By: #### L 500.2500, L100.0500 ####[facility] [address] [place], [address] Sodium [Moles/Vol] 139 mmol/L Normal 133-145 [facility] Comment on above: Order Comment: 411-1 Performed By: #### L 500.2500, L100.0500 ####[facility] [address] [place], [address] Urea nitrogen [Mass/Vol] 16 mg/dL Normal 4-19 [facility] Comment on above: Order Comment: 411-1 Performed By: #### L 500.2500, L100.0500 ####[facility] [address] [place], [address] CBC-Complete Blood Cnt No Di ffon 12-24-2024 Erythrocyte distribution width (RBC) [Ratio] 15.4 % High 11.6-14.6 [facility] Comment on above: Order Comment: 411-1 Performed By: #### L 500.2500, L100.0500 ####[facility] [address] [place], [address] Hematocrit (Bld) [Volume fraction] 39.8 % Low 40-54 [facility] Comment on above: Order Comment: 411-1 Performed By: #### L 500.2500, L100.0500 ####[facility] [address] [place], [address] Hemoglobin (Bld) [Mass/Vol] 12.4 g/dL Low 13.0-16.5 [facility] Comment on above: Order Comment: 411-1 Performed By: #### L 500.2500, L100.0500 ####[facility] [address] [place], [address] MCH (RBC) [Entitic mass] 26.6 pg Low 27.0-32.0 [facility] Comment on above: Order Comment: 411-1 Performed By: #### L 500.2500, L100.0500 ####[facility] [address] [place], [address] MCHC (RBC) [Mass/Vol] 31.2 g/dL Low 32-36 [facility] Comment on above: Order Comment: 411-1 Performed By: #### L 500.2500, L100.0500 ####[facility] [address] [place], [address] MCV (RBC) [Entitic vol] 85.4 fL Normal 80-94 [facility] Comment on above: Order Comment: 411-1 Performed By: #### L 500.2500, L100.0500 ####[facility] [address] [place], [address] Platelet mean volume (Bld) [Entitic vol] 10.4 fL Normal 6.2-12.0 [facility] Comment on above: Order Comment: 411-1 Performed By: #### L 500.2500, L100.0500 ####[facility] [address] [place], [address] Platelets (Bld) [#/Vol] 290 10*3/uL Normal 150-450 [facility] Comment on above: Order Comment: 411-1 Performed By: #### L 500.2500, L100.0500 ####[facility] [address] [place], [address] RBC (Bld) [#/Vol] 4.66 10*6/uL Normal 4.6-6.2 [facility] Comment on above: Order Comment: 411-1 Performed By: #### L 500.2500, L100.0500 ####[facility] [address] [place], [address] RDW SD 48.1 fl High 35.1-43.9 [facility] Comment on above: Order Comment: 411-1 Performed By: #### L 500.2500, L100.0500 ####[facility] [address] [place], [address] WBC (Bld) [#/Vol] 16.6 10*3/uL High 4.4-11.0 [facility] Comment on above: Order Comment: 411-1 Performed By: #### L 500.2500, L100.0500 ####[facility] [address] [place], [address] Carbon dioxide, total [Moles /volume] in Central venous bloodOrdered By: Carlos Cavazos on 12-24-2024 CO2 [Moles/Vol] 23.7 mmol/L 21.0-32.0 [facility] Chloride assayOrdered By: Sharif Crouch on 12-24-2024 Chloride [Moles/Vol] 103 mmol/L 98-108 [facility] Erythrocyte distribution wid th ratioOrdered By: Carlos Cavazos on 12-24-2024 Erythrocyte distribution width (RBC) [Ratio] 15.4 % High 11.6-14.6 [facility] Erythrocyte distribution wid th standard deviationOrdered By: Carlos Cavazos on 12-24-2024 Erythrocyte distribution width (RBC) [Ratio] 48.1 fl High 35.1-43.9 [facility] Glomerular filtration rate ( GFR) estimation/1.73 sq m using serum, plasma, or whole bOrdered By: Carlos Cavazos on 12-24-2024 GFR/1.73 sq M.predicted among non-blacks MDRD (S/P/Bld) [Vol rate/Area] 93 mL/min/{1.73_m2} >60 [facility] Comment on above: mL/min/1.73m2 CKD-EP I Creatinine Equation (2020) Hematocrit Auto (Bld) [Volum e fraction]Ordered By: Carlos Cavazos on 12-24-2024 Hematocrit (Bld) [Volume fraction] 39.8 % Low 40-54 [facility] Hemoglobin measurementOrdere d By: Carlos Cavazos on 12-24-2024 Hemoglobin (Bld) [Mass/Vol] 12.4 g/dL Low 13.0-16.5 [facility] MCV (mean corpuscular volume ) determinationOrdered By: Carlos Cavazos on 12-24-2024 MCV (RBC) [Entitic vol] 85.4 fL 80-94 [facility] Mean corpuscular hemoglobin (MCH) determinationOrdered By: Carlos Cavazos on 12-24-2024 MCH (RBC) [Entitic mass] 26.6 pg Low 27.0-32.0 [facility] Mean corpuscular hemoglobin concentration (MCHC) determinationOrdered By: Carlos Cavazos on 12-24-2024 MCHC (RBC) [Mass/Vol] 31.2 g/dL Low 32-36 [facility] Mean platelet volume determi nationOrdered By: Carlos Cavazos on 12-24-2024 Platelet mean volume (Bld) [Entitic vol] 10.4 fL 6.2-12.0 [facility] Platelet countOrdered By: Sharif Crouch on 12-24-2024 Platelets (Bld) [#/Vol] 290 10*3/uL 150-450 [facility] Potassium measurement (mass/ volume)Ordered By: Carlos Cavazos on 12-24-2024 Potassium (Unsp spec) [Mass/Vol] 4.2 mmol/L 3.3-5.1 [facility] RBC Auto (Bld) [#/Vol]Ordere d By: Carlos Cavazos on 12-24-2024 RBC (Bld) [#/Vol] 4.66 10*6/uL 4.6-6.2 [facility] Serum creatinine measurement (mass/volume)Ordered By: Carlos Cavazos on 12-24-2024 Creatinine [Mass/Vol] 0.82 mg/dL 0.70-1.20 [facility] Serum glucose measurement (m ass/volume)Ordered By: Carlos Cavazos on 12-24-2024 Glucose [Mass/Vol] 88 mg/dL 70-99 [facility] Serum or plasma calcium oral urement (mass/volume)Ordered By: Carlos Cavazos on 12-24-2024 Calcium [Mass/Vol] 8.8 mg/dL 7.6-11.0 [facility] Serum or plasma urea nitroge n measurement (mass/volume)Ordered By: Carlos Cavazos on 12-24-2024 Urea nitrogen [Mass/Vol] 16 mg/dL 4-19 [facility] Sodium levelOrdered By: Moe Cavazos on 12-24-2024 Sodium [Moles/Vol] 139 mmol/L 133-145 [facility] White blood cell (WBC) count Ordered By: Carlos Cavazos on 12-24-2024 WBC (Bld) [#/Vol] 16.6 10*3/uL High 4.4-11.0 [facility] International normalized rat io (INR) calculationOrdered By: Karon Corrales on 12-22-2024 INR Coag (Bld) [Relative time] 2.6 {INR} [facility] Prothrombin Time w/INRon INR Coag (PPP) [Relative time] 2.6 {INR} Normal [facility] Comment on above: Order Comment: 411.1 Performed By: #### L 300.3900 ####[facility] [address] [place], [place], [phone] PT Coag (PPP) [Time] 28.8 s High 11.7-14.9 [facility] Comment on above: Order Comment: 411.1 Performed By: #### L 300.3900 ####[facility] [address] [place], [address] Prothrombin timeOrdered By: Karon Corrales on 12-22-2024 PT Coag (PPP) [Time] 28.8 s High 11.7-14.9 [facility] International normalized rat io (INR) calculationOrdered By: Karon Corrales on 12-18-2024 INR Coag (Bld) [Relative time] 2.4 {INR} [facility] Prothrombin Time w/INRon INR Coag (PPP) [Relative time] 2.4 {INR} Normal [facility] Comment on above: Order Comment: 411.1 Performed By: #### L 300.3900 ####[facility] [address] [place], [address] PT Coag (PPP) [Time] 26.7 s High 11.7-14.9 [facility] Comment on above: Order Comment: 411.1 Performed By: #### L 300.3900 ####[facility] [address] [place], [address] Prothrombin timeOrdered By: Karon Corrales on 12-18-2024 PT Coag (PPP) [Time] 26.7 s High 11.7-14.9 [facility] International normalized rat io (INR) calculationOrdered By: Karon Corrales on 12-15-2024 INR Coag (Bld) [Relative time] 2.3 {INR} [facility] Prothrombin Time w/INRon INR Coag (PPP) [Relative time] 2.3 {INR} Normal [facility] Comment on above: Order Comment: 411.1 Performed By: #### L 300.3900 ####[facility] [address] [place], [address] Prothrombin timeOrdered By: Karon Corrales on 12-15-2024 PT Coag (PPP) [Time] 25.7 s High 11.7-14.9 [facility] Comment on above: Order Comment: 411.1 Performed By: #### L 300.3900 ####[facility] [address] [place], [address] International normalized rat io (INR) calculationOrdered By: Carlos Cavazos on 12-11-2024 INR Coag (Bld) [Relative time] 2.2 {INR} [facility] Prothrombin Time w/INRon INR Coag (PPP) [Relative time] 2.2 {INR} Normal [facility] Comment on above: Order Comment: 411-1 Performed By: #### L 300.3900 ####[facility] [address] [place], [address] Prothrombin timeOrdered By: Carlos Cavazos on 12-11-2024 PT Coag (PPP) [Time] 24.7 s High 11.7-14.9 [facility] Comment on above: Order Comment: 411-1 Performed By: #### L 300.3900 ####[facility] [address] [place], [place], [id number] International normalized rat io (INR) calculationOrdered By: Karon Corrales on 12-08-2024 INR Coag (Bld) [Relative time] 2.2 {INR} [facility] Prothrombin Time w/INRon INR Coag (PPP) [Relative time] 2.2 {INR} Normal [facility] Comment on above: Order Comment: 411.1 Performed By: #### L 300.3900 ####[facility] [address] [place], [place], [phone]) PT Coag (PPP) [Time] 25.0 s High 11.7-14.9 [facility] Comment on above: Order Comment: 411.1 Performed By: #### L 300.3900 ####[facility] [address] [place], [place], [phone]) Prothrombin timeOrdered By: Karon Corrales on 12-08-2024 PT Coag (PPP) [Time] 25.0 s High 11.7-14.9 [facility] International normalized rat io (INR) calculationOrdered By: Karon Corrales on 12-04-2024 INR Coag (Bld) [Relative time] 2.3 {INR} [facility] Prothrombin Time w/INRon INR Coag (PPP) [Relative time] 2.3 {INR} Normal [facility] Comment on above: Order Comment: 411.1 Performed By: #### L 300.3905 ####[facility] [address] [place], [place], [phone]) PT Coag (PPP) [Time] 25.9 s High 11.7-14.9 [facility] Comment on above: Order Comment: 411.1 Performed By: #### L 300.3900 ####[facility] [address] [place], [place], [phone]) Prothrombin timeOrdered By: Karon Corrales on 12-04-2024 PT Coag (PPP) [Time] 25.9 s High 11.7-14.9 [facility] International normalized rat io (INR) calculationOrdered By: Karon Corrales on 12-02-2024 INR Coag (Bld) [Relative time] 2.5 {INR} [facility] Prothrombin Time w/INRon INR Coag (PPP) [Relative time] 2.5 {INR} Normal [facility] Comment on above: Order Comment: 411.1 Performed By: #### L 300.3900 ####[facility] [address] [place], [address] PT Coag (PPP) [Time] 27.3 s High 11.7-14.9 [facility] Comment on above: Order Comment: 411.1 Performed By: #### L 300.3900 ####[facility] [address] [place], [address] Prothrombin timeOrdered By: Karon Corrales on 12-02-2024 PT Coag (PPP) [Time] 27.3 s High 11.7-14.9 [facility] International normalized rat io (INR) calculationOrdered By: Carlos Cavazos on 12-01-2024 INR Coag (Bld) [Relative time] 2.3 {INR} [facility] Prothrombin Time w/INRon INR Coag (PPP) [Relative time] 2.3 {INR} Normal [facility] Comment on above: Order Comment: 411-1 Performed By: #### L 300.3900 ####[facility] [address] [place], [address] PT Coag (PPP) [Time] 26.0 s High 11.7-14.9 [facility] Comment on above: Order Comment: 411-1 Performed By: #### L 300.3900 ####[facility] [address] [place], [address] Prothrombin timeOrdered By: Carlos Cavazos on 12-01-2024 PT Coag (PPP) [Time] 26.0 s High 11.7-14.9 [facility] International normalized rat io (INR) calculationOrdered By: Carlos Cavazos on 11-28-2024 INR Coag (Bld) [Relative time] 3.1 {INR} [facility] Prothrombin Time w/INRon INR Coag (PPP) [Relative time] 3.1 {INR} Normal [facility] Comment on above: Order Comment: 411-1 Performed By: #### L 300.3900 ####[facility] [address] [place], [address] PT Coag (PPP) [Time] 32.8 s High 11.7-14.9 [facility] Comment on above: Order Comment: 411-1 Performed By: #### L 300.3900 ####[facility] [address] [place], [address] Prothrombin timeOrdered By: Carlos Cavazos on 11-28-2024 PT Coag (PPP) [Time] 32.8 s High 11.7-14.9 [facility] International normalized rat io (INR) calculationOrdered By: Karon Corrales on 11-27-2024 INR Coag (Bld) [Relative time] 3.3 {INR} [facility] Prothrombin Time w/INRon INR Coag (PPP) [Relative time] 3.3 {INR} Normal [facility] Comment on above: Order Comment: 411.1 Performed By: #### L 300.3900 ####[facility] [address] [place], [address] PT Coag (PPP) [Time] 34.3 s High 11.7-14.9 [facility] Comment on above: Order Comment: 411.1 Performed By: #### L 300.3900 ####[facility] [address] [place], [address] Prothrombin timeOrdered By: Karon Corrales on 11-27-2024 PT Coag (PPP) [Time] 34.3 s High 11.7-14.9 [facility] International normalized rat io (INR) calculationOrdered By: Karon Corrales on 11-24-2024 INR Coag (Bld) [Relative time] 2.8 {INR} [facility] Prothrombin Time w/INRon INR Coag (PPP) [Relative time] 2.8 {INR} Normal [facility] Comment on above: Order Comment: 411.2 Performed By: #### L 300.3900 ####[facility] [address] [place], [address] PT Coag (PPP) [Time] 30.0 s High 11.7-14.9 [facility] Comment on above: Order Comment: 411.2 Performed By: #### L 300.3900 ####[facility] [address] [place], [address] Prothrombin timeOrdered By: Karon Corrales on 11-24-2024 PT Coag (PPP) [Time] 30.0 s High 11.7-14.9 [facility] International normalized rat io (INR) calculationOrdered By: Karon Corrales on 11-20-2024 INR Coag (Bld) [Relative time] 3.0 {INR} [facility] Prothrombin Time w/INRon INR Coag (PPP) [Relative time] 3.0 {INR} Normal [facility] Comment on above: Order Comment: 411.2 Performed By: #### L 300.3900 ####[facility] [address] [place], [address] PT Coag (PPP) [Time] 32.0 s High 11.7-14.9 [facility] Comment on above: Order Comment: 411.2 Performed By: #### L 300.3900 ####[facility] [address] [place], [address] Prothrombin timeOrdered By: Karon Corrales on 11-20-2024 PT Coag (PPP) [Time] 32.0 s High 11.7-14.9 [facility] International normalized rat io (INR) calculationOrdered By: Karon Corrales on 11-17-2024 INR Coag (Bld) [Relative time] 2.9 {INR} [facility] Prothrombin Time w/INRon INR Coag (PPP) [Relative time] 2.9 {INR} Normal [facility] Comment on above: Order Comment: 411.2 Performed By: #### L 300.3900 ####[facility] [address] [place], [place], [phone] PT Coag (PPP) [Time] 30.7 s High 11.7-14.9 [facility] Comment on above: Order Comment: 411.2 Performed By: #### L 300.3900 ####[facility] [address] [place], [place], [phone](538) Prothrombin timeOrdered By: Karon Corrales on 11-17-2024 PT Coag (PPP) [Time] 30.7 s High 11.7-14.9 [facility] International normalized rat io (INR) calculationOrdered By: Karon Corrales on 11-13-2024 INR Coag (Bld) [Relative time] 2.2 {INR} [facility] Prothrombin Time w/INRon INR Coag (PPP) [Relative time] 2.2 {INR} Normal [facility] Comment on above: Order Comment: 411.2 Performed By: #### L 300.3900 ####[facility] [address] [place], [place], [phone] PT Coag (PPP) [Time] 24.7 s High 11.7-14.9 [facility] Comment on above: Order Comment: 411.2 Performed By: #### L 300.3900 ####[facility] [address] [place], [place], [phone]([phone] Prothrombin timeOrdered By: Karon Corrales on 11-13-2024 PT Coag (PPP) [Time] 24.7 s High 11.7-14.9 [facility] International normalized rat io (INR) calculationOrdered By: Karon Corrales on 11-10-2024 INR Coag (Bld) [Relative time] 2.6 {INR} [facility] Prothrombin Time w/INRon INR Coag (PPP) [Relative time] 2.6 {INR} Normal [facility] Comment on above: Order Comment: 411.2 Performed By: #### L 300.3900 ####[facility] [address] [place], [place], [phone] PT Coag (PPP) [Time] 28.7 s High 11.7-14.9 [facility] Comment on above: Order Comment: 411.2 Performed By: #### L 300.3900 ####[facility] [address] [place], [place], [phone] Prothrombin timeOrdered By: Karon Corrales on 11-10-2024 PT Coag (PPP) [Time] 28.7 s High 11.7-14.9 [facility] International normalized rat io (INR) calculationOrdered By: Karon Corrales on 11-06-2024 INR Coag (Bld) [Relative time] 3.1 {INR} [facility] Prothrombin Time w/INRon INR Coag (PPP) [Relative time] 3.1 {INR} Normal [facility] Comment on above: Order Comment: 411.2 Performed By: #### L 300.3900 ####[facility] [address] [place], [place], [phone] Prothrombin timeOrdered By: Karon Corrales on 11-06-2024 PT Coag (PPP) [Time] 33.0 s High 11.7-14.9 [facility] Comment on above: Order Comment: 411.2 Performed By: #### L 300.3900 ####[facility] [address] [place], [place], [phone] International normalized rat io (INR) calculationOrdered By: Carlos Cavazos on 11-03-2024 INR Coag (Bld) [Relative time] 3.0 {INR} [facility] Prothrombin Time w/INRon INR Coag (PPP) [Relative time] 3.0 {INR} Normal [facility] Comment on above: Order Comment: 411-2 Performed By: #### L 300.3900 ####[facility] [address] [place], [place], [phone](597) PT Coag (PPP) [Time] 31.4 s High 11.7-14.9 [facility] Comment on above: Order Comment: 411-2 Performed By: #### L 300.3900 ####[facility] [address] [place], [place], [phone]([phone] Prothrombin timeOrdered By: Carlos Cavazos on 11-03-2024 PT Coag (PPP) [Time] 31.4 s High 11.7-14.9 [facility] International normalized rat io (INR) calculationOrdered By: Karon Corrales on 10-30-2024 INR Coag (Bld) [Relative time] 2.4 {INR} [facility] Prothrombin Time w/INRon INR Coag (PPP) [Relative time] 2.4 {INR} Normal [facility] Comment on above: Performed By: #### L 300.3900 ####[facility] [address] [place], [place], [phone]([phone]) PT Coag (PPP) [Time] 26.3 s High 11.7-14.9 [facility] Comment on above: Performed By: #### L 300.3900 ####[facility] [address] [place], [place], [phone](846) Prothrombin timeOrdered By: Karon Corrales on 10-30-2024 PT Coag (PPP) [Time] 26.3 s High 11.7-14.9 [facility] International normalized rat io (INR) calculationOrdered By: Karon Corrales on 10-27-2024 INR Coag (Bld) [Relative time] 2.2 {INR} [facility] Prothrombin Time w/INRon INR Coag (PPP) [Relative time] 2.2 {INR} Normal [facility] Comment on above: Order Comment: 411.2 Performed By: #### L 300.3900 ####[facility] [address] [place], [place], [phone] Prothrombin timeOrdered By: Karon Corrales on 10-27-2024 PT Coag (PPP) [Time] 24.5 s High 11.7-14.9 [facility] Comment on above: Order Comment: 411.2 Performed By: #### L 300.3900 ####[facility] [address] [place], [place], [address] International normalized rat io (INR) calculationOrdered By: Karon Corrales on 10-23-2024 INR Coag (Bld) [Relative time] 2.5 {INR} [facility] Prothrombin Time w/INRon INR Coag (PPP) [Relative time] 2.5 {INR} Normal [facility] Comment on above: Order Comment: 411.2 Performed By: #### L 300.3900 ####[facility] [address] [place], [place], [phone] PT Coag (PPP) [Time] 27.9 s High 11.7-14.9 [facility] Comment on above: Order Comment: 411.2 Performed By: #### L 300.3900 ####[facility] [address] [place], [place], [phone] Prothrombin timeOrdered By: Karon Corrales on 10-23-2024 PT Coag (PPP) [Time] 27.9 s High 11.7-14.9 [facility] International normalized rat io (INR) calculationOrdered By: Karon Corrales on 10-20-2024 INR Coag (Bld) [Relative time] 3.1 {INR} [facility] Prothrombin Time w/INRon INR Coag (PPP) [Relative time] 3.1 {INR} Normal [facility] Comment on above: Order Comment: 411.2 Performed By: #### L 300.3900 ####[facility] [address] [place], [place], [phone] PT Coag (PPP) [Time] 32.8 s High 11.7-14.9 [facility] Comment on above: Order Comment: 411.2 Performed By: #### L 300.3900 ####[facility] [address] [place], [place], [phone](378) Prothrombin timeOrdered By: Karon Corrales on 10-20-2024 PT Coag (PPP) [Time] 32.8 s High 11.7-14.9 [facility] International normalized rat io (INR) calculationOrdered By: Karon Corrales on 10-16-2024 INR Coag (Bld) [Relative time] 2.8 {INR} [facility] Prothrombin Time w/INRon INR Coag (PPP) [Relative time] 2.8 {INR} Normal [facility] Comment on above: Order Comment: 411.2 Performed By: #### L 300.3900 ####[facility] [address] [place], [place], [phone](214) PT Coag (PPP) [Time] 30.4 s High 11.7-14.9 [facility] Comment on above: Order Comment: 411.2 Performed By: #### L 300.3900 ####[facility] [address] [place], [place], [phone](689) Prothrombin timeOrdered By: Karon Corrales on 10-16-2024 PT Coag (PPP) [Time] 30.4 s High 11.7-14.9 [facility] International normalized rat io (INR) calculationOrdered By: Carlos Cavazos on 10-13-2024 INR Coag (Bld) [Relative time] 1.9 {INR} [facility] Prothrombin Time w/INRon INR Coag (PPP) [Relative time] 1.9 {INR} Normal [facility] Comment on above: Order Comment: 411-2 Performed By: #### L 300.3900 ####[facility] [address] [place], [address] PT Coag (PPP) [Time] 22.4 s High 11.7-14.9 [facility] Comment on above: Order Comment: 411-2 Performed By: #### L 300.3900 ####[facility] [address] [place], [place], [phone] Prothrombin timeOrdered By: Carlos Cavazos on 10-13-2024 PT Coag (PPP) [Time] 22.4 s High 11.7-14.9 [facility] International normalized rat io (INR) calculationOrdered By: Karon Corrales on 10-09-2024 INR Coag (Bld) [Relative time] 3.0 {INR} [facility] Prothrombin Time w/INRon INR Coag (PPP) [Relative time] 3.0 {INR} Normal [facility] Comment on above: Order Comment: 411.2 Performed By: #### L 300.3900 ####[facility] [address] [place], [place], [phone] Prothrombin timeOrdered By: Karon Corrales on 10-09-2024 PT Coag (PPP) [Time] 31.8 s High 11.7-14.9 [facility] Comment on above: Order Comment: 411.2 Performed By: #### L 300.3900 ####[facility] [address] [place], [address] International normalized rat io (INR) calculationOrdered By: Carlos Cavazos on 10-06-2024 INR Coag (Bld) [Relative time] 2.7 {INR} [facility] Prothrombin Time w/INRon INR Coag (PPP) [Relative time] 2.7 {INR} Normal [facility] Comment on above: Order Comment: 411-2 Performed By: #### L 300.3900 ####[facility] [address] [place], [place], [phone](625) PT Coag (PPP) [Time] 29.6 s High 11.7-14.9 [facility] Comment on above: Order Comment: 411-2 Performed By: #### L 300.3900 ####[facility] [address] [place], [address] Prothrombin timeOrdered By: Carlos Cavazos on 10-06-2024 PT Coag (PPP) [Time] 29.6 s High 11.7-14.9 [facility] International normalized rat io (INR) calculationOrdered By: Karon Corrales on 10-02-2024 INR Coag (Bld) [Relative time] 2.3 {INR} [facility] Prothrombin Time w/INRon INR Coag (PPP) [Relative time] 2.3 {INR} Normal [facility] Comment on above: Order Comment: 411.2 Performed By: #### L 300.3900 ####[facility] [address] [place], [place], [phone](769) PT Coag (PPP) [Time] 26.0 s High 11.7-14.9 [facility] Comment on above: Order Comment: 411.2 Performed By: #### L 300.3900 ####[facility] [address] [place], [place], [phone](510) Prothrombin timeOrdered By: Karon Corrales on 10-02-2024 PT Coag (PPP) [Time] 26.0 s High 11.7-14.9 [facility] International normalized rat io (INR) calculationOrdered By: Karon Corrales on 09-30-2024 INR Coag (Bld) [Relative time] 3.1 {INR} [facility] Prothrombin Time w/INRon INR Coag (PPP) [Relative time] 3.1 {INR} Normal [facility] Comment on above: Order Comment: 411.2 Performed By: #### L 300.3900 ####[facility] [address] [place], [place], [phone] PT Coag (PPP) [Time] 32.6 s High 11.7-14.9 [facility] Comment on above: Order Comment: 411.2 Performed By: #### L 300.3900 ####[facility] [address] [place], [place], [phone] Prothrombin timeOrdered By: Karno Corrales on 09-30-2024 PT Coag (PPP) [Time] 32.6 s High 11.7-14.9 [facility] International normalized rat io (INR) calculationOrdered By: Karon Corrales on 09-25-2024 INR Coag (Bld) [Relative time] 2.4 {INR} [facility] Prothrombin Time w/INRon INR Coag (PPP) [Relative time] 2.4 {INR} Normal [facility] Comment on above: Order Comment: 411.2 Performed By: #### L 300.3900 ####[facility] [address] [place], [place], [phone] Prothrombin timeOrdered By: Karon Corrales on 09-25-2024 PT Coag (PPP) [Time] 26.7 s High 11.7-14.9 [facility] Comment on above: Order Comment: 411.2 Performed By: #### L 300.3900 ####[facility] [address] [place], [address] International normalized rat io (INR) calculationOrdered By: Karon Corrales on 09-22-2024 INR Coag (Bld) [Relative time] 2.5 {INR} [facility] Prothrombin Time w/INRon INR Coag (PPP) [Relative time] 2.5 {INR} Normal [facility] Comment on above: Order Comment: 411.2 Performed By: #### L 300.3900 ####[facility] [address] [place], [place], [phone] Prothrombin timeOrdered By: Karon Corrales on 09-22-2024 PT Coag (PPP) [Time] 27.4 s High 11.7-14.9 [facility] Comment on above: Order Comment: 411.2 Performed By: #### L 300.3900 ####[facility] [address] [place], [place], [address] International normalized rat io (INR) calculationOrdered By: Karon Corrales on 09-18-2024 INR Coag (Bld) [Relative time] 2.2 {INR} [facility] Prothrombin Time w/INRon INR Coag (PPP) [Relative time] 2.2 {INR} Normal [facility] Comment on above: Order Comment: 411.2 Performed By: #### L 300.3900 ####[facility] [address] [place], [place], [address] PT Coag (PPP) [Time] 25.1 s High 11.7-14.9 [facility] Comment on above: Order Comment: 411.2 Performed By: #### L 300.3900 ####[facility] [address] [place], [place], [phone] Prothrombin timeOrdered By: Karon Corrales on 09-18-2024 PT Coag (PPP) [Time] 25.1 s High 11.7-14.9 [facility] International normalized rat io (INR) calculationOrdered By: Carlos Cavazos on 09-15-2024 INR Coag (Bld) [Relative time] 2.4 {INR} [facility] Prothrombin Time w/INRon INR Coag (PPP) [Relative time] 2.4 {INR} Normal [facility] Comment on above: Order Comment: 411-2 Performed By: #### L 300.3900 ####[facility] [address] [place], [address] Prothrombin timeOrdered By: Carlos Cavzaos on 09-15-2024 PT Coag (PPP) [Time] 26.3 s High 11.7-14.9 [facility] Comment on above: Order Comment: 411-2 Performed By: #### L 300.3900 ####[facility] [address] [place], [place], [phone] International normalized rat io (INR) calculationOrdered By: Karon Corrales on 09-11-2024 INR Coag (Bld) [Relative time] 2.0 {INR} [facility] Prothrombin Time w/INRon INR Coag (PPP) [Relative time] 2.0 {INR} Normal [facility] Comment on above: Order Comment: 411.2 Performed By: #### L 300.3900 ####[facility] [address] [place], [place], [phone] PT Coag (PPP) [Time] 22.9 s High 11.7-14.9 [facility] Comment on above: Order Comment: 411.2 Performed By: #### L 300.3900 ####[facility] [address] [place], [place], [phone] Prothrombin timeOrdered By: Karon Corrales on 09-11-2024 PT Coag (PPP) [Time] 22.9 s High 11.7-14.9 [facility] International normalized rat io (INR) calculationOrdered By: Karon Corrales on 09-08-2024 INR Coag (Bld) [Relative time] 2.0 {INR} [facility] Prothrombin Time w/INRon INR Coag (PPP) [Relative time] 2.0 {INR} Normal [facility] Comment on above: Order Comment: 411.2 Performed By: #### L 300.3900 ####[facility] [address] [place], [place], [phone](404) PT Coag (PPP) [Time] 22.8 s High 11.7-14.9 [facility] Comment on above: Order Comment: 411.2 Performed By: #### L 300.3900 ####[facility] [address] [place], [place], [phone](892) Prothrombin timeOrdered By: Karon Corrales on 09-08-2024 PT Coag (PPP) [Time] 22.8 s High 11.7-14.9 [facility] International normalized rat io (INR) calculationOrdered By: Carlos Cavazos on 09-04-2024 INR Coag (Bld) [Relative time] 1.7 {INR} [facility] Prothrombin Time w/INRon INR Coag (PPP) [Relative time] 1.7 {INR} Normal [facility] Comment on above: Order Comment: 411-2 Performed By: #### L 300.3900 ####[facility] [address] [place], [place], [phone] PT Coag (PPP) [Time] 20.8 s High 11.7-14.9 [facility] Comment on above: Order Comment: 411-2 Performed By: #### L 300.3900 ####[facility] [address] [place], [place], [phone](472) Prothrombin timeOrdered By: Carlos Cavazos on 09-04-2024 PT Coag (PPP) [Time] 20.8 s High 11.7-14.9 [facility] International normalized rat io (INR) calculationOrdered By: Carlos Cavazos on 09-01-2024 INR Coag (Bld) [Relative time] 2.9 {INR} [facility] Prothrombin Time w/INRon INR Coag (PPP) [Relative time] 2.9 {INR} Normal [facility] Comment on above: Order Comment: 411-2 Performed By: #### L 300.3900 ####[facility] [address] [place], [place], [phone](073) PT Coag (PPP) [Time] 30.7 s High 11.7-14.9 [facility] Comment on above: Order Comment: 411-2 Performed By: #### L 300.3900 ####[facility] [address] [place], [place], [phone](462) Prothrombin timeOrdered By: Carlos Cavazos on 09-01-2024 PT Coag (PPP) [Time] 30.7 s High 11.7-14.9 [facility] International normalized rat io (INR) calculationOrdered By: Carlos Cavazos on 08-28-2024 INR Coag (Bld) [Relative time] 2.4 {INR} [facility] Prothrombin Time w/INRon INR Coag (PPP) [Relative time] 2.4 {INR} Normal [facility] Comment on above: Order Comment: 411-2 Performed By: #### L 300.3900 ####[facility] [address] [place], [place], [phone] Prothrombin timeOrdered By: Carlos Cavazos on 08-28-2024 PT Coag (PPP) [Time] 26.7 s High 11.7-14.9 [facility] Comment on above: Order Comment: 411-2 Performed By: #### L 300.3900 ####[facility] [address] [place], [place], [phone] International normalized rat io (INR) calculationOrdered By: Karon Corrales on 08-25-2024 INR Coag (Bld) [Relative time] 1.8 {INR} [facility] Prothrombin Time w/INRon INR Coag (PPP) [Relative time] 1.8 {INR} Normal [facility] Comment on above: Order Comment: 411.2 Performed By: #### L 300.3900 ####[facility] [address] [place], [address] PT Coag (PPP) [Time] 21.6 s High 11.7-14.9 [facility] Comment on above: Order Comment: 411.2 Performed By: #### L 300.3900 ####[facility] [address] [place], [place], [phone] Prothrombin timeOrdered By: Karon Corrales on 08-25-2024 PT Coag (PPP) [Time] 21.6 s High 11.7-14.9 [facility] International normalized rat io (INR) calculationOrdered By: Karon Corrales on 08-21-2024 INR Coag (Bld) [Relative time] 1.7 {INR} [facility] PSA, total screeningOrdered By: Karon Corrales on 08-21-2024 Prostate Specific Antigen Screen 0.52 ng/mL 0.02-4.00 [facility] Comment on above: This test was perfor med using the [employer] tPSA method. Measured values of a [...] SCREEN 0.52 ng/mL Normal 0.02-4.00 [facility] Comment on above: [...] By: #### L 501.9910, L300.3900 ####[facility] [address] [place], [address] Prothrombin Time w/INRon INR Coag (PPP) [Relative time] 1.7 {INR} Normal [facility] Comment on above: Order Comment: 411.2 Performed By: #### L 501.9910, L300.3900 ####[facility] [address] [place], [address] Prothrombin timeOrdered By: Karon Corrales on 08-21-2024 PT Coag (PPP) [Time] 20.1 s High 11.7-14.9 [facility] Comment on above: Order Comment: 411.2 Performed By: #### L 501.9910, L300.3900 ####[facility] [address] [place], [address] International normalized rat io (INR) calculationOrdered By: Karon Corrales on 08-18-2024 INR Coag (Bld) [Relative time] 3.0 {INR} [facility] Prothrombin Time w/INRon INR Coag (PPP) [Relative time] 3.0 {INR} Normal [facility] Comment on above: Order Comment: 411.2 Performed By: #### L 300.3900 ####[facility] [address] [place], [address] PT Coag (PPP) [Time] 31.4 s High 11.7-14.9 [facility] Comment on above: Order Comment: 411.2 Performed By: #### L 300.3900 ####[facility] [address] [place], [address] Prothrombin timeOrdered By: Karon Corrales on 08-18-2024 PT Coag (PPP) [Time] 31.4 s High 11.7-14.9 [facility] International normalized rat io (INR) calculationOrdered By: Karon Corrales on 08-14-2024 INR Coag (Bld) [Relative time] 2.4 {INR} [facility] Prothrombin Time w/INRon INR Coag (PPP) [Relative time] 2.4 {INR} Normal [facility] Comment on above: Order Comment: 411.2 Performed By: #### L 300.3900 ####[facility] [address] [place], [address] PT Coag (PPP) [Time] 26.6 s High 11.7-14.9 [facility] Comment on above: Order Comment: 411.2 Performed By: #### L 300.3900 ####[facility] [address] [place], [address] Prothrombin timeOrdered By: Karon Corrales on 08-14-2024 PT Coag (PPP) [Time] 26.6 s High 11.7-14.9 [facility] International normalized rat io (INR) calculationOrdered By: Karon Corrales on 08-11-2024 INR Coag (Bld) [Relative time] 3.1 {INR} [facility] Prothrombin Time w/INRon INR Coag (PPP) [Relative time] 3.1 {INR} Normal [facility] Comment on above: Order Comment: 411.2 Performed By: #### L 300.3900 ####[facility] [address] [place], [address] PT Coag (PPP) [Time] 32.4 s High 11.7-14.9 [facility] Comment on above: Order Comment: 411.2 Performed By: #### L 300.3900 ####[facility] [address] [place], [address] Prothrombin timeOrdered By: Karon Corrales on 08-11-2024 PT Coag (PPP) [Time] 32.4 s High 11.7-14.9 [facility] International normalized rat io (INR) calculationOrdered By: Carlos Cavazos on 08-07-2024 INR Coag (Bld) [Relative time] 2.8 {INR} [facility] Prothrombin Time w/INRon INR Coag (PPP) [Relative time] 2.8 {INR} Normal [facility] Comment on above: Order Comment: 411-2 Performed By: #### L 300.3900 ####[facility] [address] [place], [address] PT Coag (PPP) [Time] 30.3 s High 11.7-14.9 [facility] Comment on above: Order Comment: 411-2 Performed By: #### L 300.3900 ####[facility] [address] [place], [address]([phone] Prothrombin timeOrdered By: Carlos Cavazos on 08-07-2024 PT Coag (PPP) [Time] 30.3 s High 11.7-14.9 [facility] International normalized rat io (INR) calculationOrdered By: Carlos Cavazos on 08-04-2024 INR Coag (Bld) [Relative time] 1.9 {INR} [facility] Prothrombin Time w/INRon INR Coag (PPP) [Relative time] 1.9 {INR} Normal [facility] Comment on above: Order Comment: 411-2 Performed By: #### L 300.3900 ####[facility] [address] [place], [address] PT Coag (PPP) [Time] 22.1 s High 11.7-14.9 [facility] Comment on above: Order Comment: 411-2 Performed By: #### L 300.3900 ####[facility] [address] [place], [place], [phone] Prothrombin timeOrdered By: Carlos Cavazos on 08-04-2024 PT Coag (PPP) [Time] 22.1 s High 11.7-14.9 [facility] International normalized rat io (INR) calculationOrdered By: Karon Corrales on 07-31-2024 INR Coag (Bld) [Relative time] 3.2 {INR} [facility] Prothrombin Time w/INRon INR Coag (PPP) [Relative time] 3.2 {INR} Normal [facility] Comment on above: Order Comment: 411.2 Performed By: #### L 300.3900 ####[facility] [address] [place], [place], [phone](635) PT Coag (PPP) [Time] 33.5 s High 11.7-14.9 [facility] Comment on above: Order Comment: 411.2 Performed By: #### L 300.3900 ####[facility] [address] [place], [place], [phone](920) Prothrombin timeOrdered By: Karon Corrales on 07-31-2024 PT Coag (PPP) [Time] 33.5 s High 11.7-14.9 [facility] International normalized rat io (INR) calculationOrdered By: Karon Corrales on 07-28-2024 INR Coag (Bld) [Relative time] 2.7 {INR} [facility] Prothrombin Time w/INRon INR Coag (PPP) [Relative time] 2.7 {INR} Normal [facility] Comment on above: Order Comment: 411.2 Performed By: #### L 300.3900 ####[facility] [address] [place], [place], [phone](435) PT Coag (PPP) [Time] 29.6 s High 11.7-14.9 [facility] Comment on above: Order Comment: 411.2 Performed By: #### L 300.3900 ####[facility] [address] [place], [place], [phone] Prothrombin timeOrdered By: Karon Corrales on 07-28-2024 PT Coag (PPP) [Time] 29.6 s High 11.7-14.9 [facility] International normalized rat io (INR) calculationOrdered By: Carlos Cavazos on 07-25-2024 INR Coag (Bld) [Relative time] 3.0 {INR} [facility] Prothrombin Time w/INRon INR Coag (PPP) [Relative time] 3.0 {INR} Normal [facility] Comment on above: Order Comment: 411-2 Performed By: #### L 300.3900 ####[facility] [address] [place], [address] Prothrombin timeOrdered By: Carlos Cavazos on 07-25-2024 PT Coag (PPP) [Time] 32.1 s High 11.7-14.9 [facility] Comment on above: Order Comment: 411-2 Performed By: #### L 300.3900 ####[facility] [address] [place], [place], [id number] International normalized rat io (INR) calculationOrdered By: Karon Corrales on 07-24-2024 INR Coag (Bld) [Relative time] 3.4 {INR} [facility] Prothrombin Time w/INRon INR Coag (PPP) [Relative time] 3.4 {INR} Normal [facility] Comment on above: Order Comment: 411.2 Performed By: #### L 300.3900 ####[facility] [address] [place], [place], [phone] Prothrombin timeOrdered By: Karon Corrales on 07-24-2024 PT Coag (PPP) [Time] 35.4 s High 11.7-14.9 [facility] Comment on above: Order Comment: 411.2 Performed By: #### L 300.3900 ####[facility] [address] [place], [address] International normalized rat io (INR) calculationOrdered By: Karon Corrales on 07-21-2024 INR Coag (Bld) [Relative time] 1.6 {INR} [facility] Prothrombin Time w/INRon INR Coag (PPP) [Relative time] 1.6 {INR} Normal [facility] Comment on above: Order Comment: 411.2 Performed By: #### L 300.3900 ####[facility] [address] [place], [address] PT Coag (PPP) [Time] 19.6 s High 11.7-14.9 [facility] Comment on above: Order Comment: 411.2 Performed By: #### L 300.3900 ####[facility] [address] [place], [address] Prothrombin timeOrdered By: Karon Corrales on 07-21-2024 PT Coag (PPP) [Time] 19.6 s High 11.7-14.9 [facility] International normalized rat io (INR) calculationOrdered By: Karon Corrales on 07-17-2024 INR Coag (Bld) [Relative time] 2.9 {INR} [facility] Prothrombin Time w/INRon INR Coag (PPP) [Relative time] 2.9 {INR} Normal [facility] Comment on above: Order Comment: 411.2 Performed By: #### L 300.3900 ####[facility] [address] [place], [address] PT Coag (PPP) [Time] 31.1 s High 11.7-14.9 [facility] Comment on above: Order Comment: 411.2 Performed By: #### L 300.3900 ####[facility] [address] [place], [address] Prothrombin timeOrdered By: Karon Corrales on 07-17-2024 PT Coag (PPP) [Time] 31.1 s High 11.7-14.9 [facility] International normalized rat io (INR) calculationOrdered By: Carlos Cavazos on 07-14-2024 INR Coag (Bld) [Relative time] 2.5 {INR} [facility] Prothrombin Time w/INRon INR Coag (PPP) [Relative time] 2.5 {INR} Normal [facility] Comment on above: Order Comment: 411-2 Performed By: #### L 300.3900 ####[facility] [address] [place], [place], [phone] PT Coag (PPP) [Time] 27.5 s High 11.7-14.9 [facility] Comment on above: Order Comment: 411-2 Performed By: #### L 300.3900 ####[facility] [address] [place], [address] Prothrombin timeOrdered By: Carlos Cavazos on 07-14-2024 PT Coag (PPP) [Time] 27.5 s High 11.7-14.9 [facility] International normalized rat io (INR) calculationOrdered By: Carlos Cavazos on 07-11-2024 INR Coag (Bld) [Relative time] 2.5 {INR} [facility] Prothrombin Time w/INRon INR Coag (PPP) [Relative time] 2.5 {INR} Normal [facility] Comment on above: Performed By: #### L 300.3900 ####[facility] [address] [place], [place], [phone] PT Coag (PPP) [Time] 27.7 s High 11.7-14.9 [facility] Comment on above: Performed By: #### L 300.3900 ####[facility] [address] [place], [place], [phone] Prothrombin timeOrdered By: Carlos Cavazos on 07-11-2024 PT Coag (PPP) [Time] 27.7 s High 11.7-14.9 [facility] Prothrombin Time w/INRon INR Normal [facility] Comment on above: Order Comment: 411.2 Result Comment: QNS TUBE NOT FILLED Performed By: #### L 300.3900 ####[facility] [address] [place], [address] PROTIME Normal 11.7-14.9 [facility] Comment on above: Order Comment: 411.2 Result Comment: QNS TUBE NOT FILLED Performed By: #### L 300.3900 ####[facility] [address] [place], [address] International normalized rat io (INR) calculationOrdered By: Kvng Crisostomo on 07-07-2024 INR Coag (Bld) [Relative time] 2.5 {INR} [facility] Prothrombin Time w/INRon INR Coag (PPP) [Relative time] 2.5 {INR} Normal [facility] Comment on above: Order Comment: 411.2 Performed By: #### L 300.3900 ####[facility] [address] [place], [address] PT Coag (PPP) [Time] 27.2 s High 11.7-14.9 [facility] Comment on above: Order Comment: 411.2 Performed By: #### L 300.3900 ####[facility] [address] [place], [address] Prothrombin timeOrdered By: Kvng Crisostomo on 07-07-2024 PT Coag (PPP) [Time] 27.2 s High 11.7-14.9 [facility] International normalized rat io (INR) calculationOrdered By: Kvng Crisostomo on 07-03-2024 INR Coag (Bld) [Relative time] 2.5 {INR} [facility] Prothrombin Time w/INRon INR Coag (PPP) [Relative time] 2.5 {INR} Normal [facility] Comment on above: Order Comment: 411.2 Performed By: #### L 300.3900 ####[facility] [address] [place], [address] PT Coag (PPP) [Time] 27.2 s High 11.7-14.9 [facility] Comment on above: Order Comment: 411.2 Performed By: #### L 300.3900 ####[facility] [address] [place], [address] Prothrombin timeOrdered By: Elizabethet Andressa on 07-03-2024 PT Coag (PPP) [Time] 27.2 s High 11.7-14.9 [facility] International normalized rat io (INR) calculationOrdered By: Babjulyet Andressa on 06-30-2024 INR Coag (Bld) [Relative time] 2.4 {INR} [facility] Prothrombin Time w/INRon INR Coag (PPP) [Relative time] 2.4 {INR} Normal [facility] Comment on above: Order Comment: 411.2 Performed By: #### L 300.3900 ####[facility] [address] [place], [address] PT Coag (PPP) [Time] 26.8 s High 11.7-14.9 [facility] Comment on above: Order Comment: 411.2 Performed By: #### L 300.3900 ####[facility] [address] [place], [address] Prothrombin timeOrdered By: Kvng Crisostomo on 06-30-2024 PT Coag (PPP) [Time] 26.8 s High 11.7-14.9 [facility] International normalized rat io (INR) calculationOrdered By: Babbaljeet Crisostomo on 06-26-2024 INR Coag (Bld) [Relative time] 2.5 {INR} [facility] Prothrombin Time w/INRon INR Coag (PPP) [Relative time] 2.5 {INR} Normal [facility] Comment on above: Order Comment: 411.2 Performed By: #### L 300.3900 ####[facility] [address] [place], [address] PT Coag (PPP) [Time] 27.5 s High 11.7-14.9 [facility] Comment on above: Order Comment: 411.2 Performed By: #### L 300.3900 ####[facility] [address] [place], [address] Prothrombin timeOrdered By: Kvng Crisostomo on 06-26-2024 PT Coag (PPP) [Time] 27.5 s High 11.7-14.9 [facility] International normalized rat io (INR) calculationOrdered By: Carlos Cavazos on 06-23-2024 INR Coag (Bld) [Relative time] 2.8 {INR} [facility] Prothrombin Time w/INRon INR Coag (PPP) [Relative time] 2.8 {INR} Normal [facility] Comment on above: Order Comment: 411-2 Performed By: #### L 300.3900 ####[facility] [address] [place], [address] PT Coag (PPP) [Time] 29.7 s High 11.7-14.9 [facility] Comment on above: Order Comment: 411-2 Performed By: #### L 300.3900 ####[facility] [address] [place], [address] Prothrombin timeOrdered By: Carlos Cavazos on 06-23-2024 PT Coag (PPP) [Time] 29.7 s High 11.7-14.9 [facility] International normalized rat io (INR) calculationOrdered By: Kvng Crisostomo on 06-19-2024 INR Coag (Bld) [Relative time] 2.6 {INR} [facility] Prothrombin Time w/INRon INR Coag (PPP) [Relative time] 2.6 {INR} Normal [facility] Comment on above: Order Comment: 411.2 Performed By: #### L 300.3900 ####[facility] [address] [place], [address] PT Coag (PPP) [Time] 28.6 s High 11.7-14.9 [facility] Comment on above: Order Comment: 411.2 Performed By: #### L 300.3900 ####[facility] [address] [place], [address] Prothrombin timeOrdered By: Elizabethet Andressa on 06-19-2024 PT Coag (PPP) [Time] 28.6 s High 11.7-14.9 [facility] International normalized rat io (INR) calculationOrdered By: Babjulyet Andressa on 06-16-2024 INR Coag (Bld) [Relative time] 2.5 {INR} [facility] Prothrombin Time w/INRon INR Coag (PPP) [Relative time] 2.5 {INR} Normal [facility] Comment on above: Order Comment: 411.2 Performed By: #### L 300.3900 ####[facility] [address] [place], [address] PT Coag (PPP) [Time] 27.3 s High 11.7-14.9 [facility] Comment on above: Order Comment: 411.2 Performed By: #### L 300.3900 ####[facility] [address] [place], [address] Prothrombin timeOrdered By: Kvng Crisostomo on 06-16-2024 PT Coag (PPP) [Time] 27.3 s High 11.7-14.9 [facility] International normalized rat io (INR) calculationOrdered By: Babbaljeet Crisostomo on 06-12-2024 INR Coag (Bld) [Relative time] 2.1 {INR} [facility] Prothrombin Time w/INRon INR Coag (PPP) [Relative time] 2.1 {INR} Normal [facility] Comment on above: Order Comment: 411.2 Performed By: #### L 300.3900 ####[facility] [address] [place], [address] PT Coag (PPP) [Time] 24.0 s High 11.7-14.9 [facility] Comment on above: Order Comment: 411.2 Performed By: #### L 300.3900 ####[facility] [address] [place], [address] Prothrombin timeOrdered By: Kvng Crisostomo on 06-12-2024 PT Coag (PPP) [Time] 24.0 s High 11.7-14.9 [facility] International normalized rat io (INR) calculationOrdered By: Carlos Cavazos on 06-09-2024 INR Coag (Bld) [Relative time] 1.5 {INR} [facility] Prothrombin Time w/INRon INR Coag (PPP) [Relative time] 1.5 {INR} Normal [facility] Comment on above: Order Comment: 411-2 Performed By: #### L 300.3900 ####[facility] [address] [place], [address] PT Coag (PPP) [Time] 18.0 s High 11.7-14.9 [facility] Comment on above: Order Comment: 411-2 Performed By: #### L 300.3900 ####[facility] [address] [place], [address] Prothrombin timeOrdered By: Carlos Cavazos on 06-09-2024 PT Coag (PPP) [Time] 18.0 s High 11.7-14.9 [facility] International normalized rat io (INR) calculationOrdered By: Kvng Crisostomo on 06-05-2024 INR Coag (Bld) [Relative time] 2.8 {INR} [facility] Prothrombin Time w/INRon INR Coag (PPP) [Relative time] 2.8 {INR} Normal [facility] Comment on above: Order Comment: 411.2 Performed By: #### L 300.3900 ####[facility] [address] [place], [address] PT Coag (PPP) [Time] 30.3 s High 11.7-14.9 [facility] Comment on above: Order Comment: 411.2 Performed By: #### L 300.3900 ####[facility] [address] [place], [address] Prothrombin timeOrdered By: Kvng Crisostomo on 06-05-2024 PT Coag (PPP) [Time] 30.3 s High 11.7-14.9 [facility] International normalized rat io (INR) calculationOrdered By: Kvng Crisostomo on 06-02-2024 INR Coag (Bld) [Relative time] 2.6 {INR} [facility] Prothrombin Time w/INRon INR Coag (PPP) [Relative time] 2.6 {INR} Normal [facility] Comment on above: Order Comment: 411.2 Performed By: #### L 300.3900 ####[facility] [address] [place], [address] PT Coag (PPP) [Time] 28.6 s High 11.7-14.9 [facility] Comment on above: Order Comment: 411.2 Performed By: #### L 300.3900 ####[facility] [address] [place], [address] Prothrombin timeOrdered By: Kvng Crisostomo on 06-02-2024 PT Coag (PPP) [Time] 28.6 s High 11.7-14.9 [facility] International normalized rat io (INR) calculationOrdered By: Kvng Crisostomo on 05-29-2024 INR Coag (Bld) [Relative time] 2.5 {INR} [facility] Prothrombin Time w/INRon INR Coag (PPP) [Relative time] 2.5 {INR} Normal [facility] Comment on above: Order Comment: 411.2 Performed By: #### L 300.3900 ####[facility] [address] [place], [address] PT Coag (PPP) [Time] 27.7 s High 11.7-14.9 [facility] Comment on above: Order Comment: 411.2 Performed By: #### L 300.3900 ####[facility] [address] [place], [address] Prothrombin timeOrdered By: Kvng Crisostomo on 05-29-2024 PT Coag (PPP) [Time] 27.7 s High 11.7-14.9 [facility] International normalized rat io (INR) calculationOrdered By: Carlos Cavazos on 05-26-2024 INR Coag (Bld) [Relative time] 2.2 {INR} [facility] Prothrombin Time w/INRon INR Coag (PPP) [Relative time] 2.2 {INR} Normal [facility] Comment on above: Order Comment: 411-2 Performed By: #### L 300.3900 ####[facility] [address] [place], [address] PT Coag (PPP) [Time] 24.5 s High 11.7-14.9 [facility] Comment on above: Order Comment: 411-2 Performed By: #### L 300.3900 ####[facility] [address] [place], [address] Prothrombin timeOrdered By: Carlos Cavazos on 05-26-2024 PT Coag (PPP) [Time] 24.5 s High 11.7-14.9 [facility] International normalized rat io (INR) calculationOrdered By: Kvng Crisostomo on 05-22-2024 INR Coag (Bld) [Relative time] 2.8 {INR} [facility] Prothrombin Time w/INRon INR Coag (PPP) [Relative time] 2.8 {INR} Normal [facility] Comment on above: Order Comment: 411.2 Performed By: #### L 300.3900 ####[facility] [address] [place], [address] PT Coag (PPP) [Time] 30.3 s High 11.7-14.9 [facility] Comment on above: Order Comment: 411.2 Performed By: #### L 300.3900 ####[facility] [address] [place], [address] Prothrombin timeOrdered By: Kvng Crisostomo on 05-22-2024 PT Coag (PPP) [Time] 30.3 s High 11.7-14.9 [facility] International normalized rat io (INR) calculationOrdered By: Kvng Crisostomo on 05-20-2024 INR Coag (Bld) [Relative time] 4.0 {INR} High [facility] Comment on above: CRITICAL VALUE CASEY D TO [id number]/14/25 [facility] Diana Mattson.RESULTS READ BACK BY SAME. Prothrombin Time w/INRon INR Coag (PPP) [Relative time] 4.0 {INR} Invalid Interpretation Code [facility] Comment on above: Order Comment: 411.2 Result Comment: CRIT ICAL VALUE CALLED TO [place] [address] [facility] Diana Mattson.RESULTS READ BACK BY SAME. Performed By: #### L 300.3900 ####[facility] [address] [place], [address] PT Coag (PPP) [Time] 39.9 s High 11.7-14.9 [facility] Comment on above: Order Comment: 411.2 Performed By: #### L 300.3900 ####[facility] [address] [place], [place], [phone] Prothrombin timeOrdered By: Kvng Crisosotmo on 05-20-2024 PT Coag (PPP) [Time] 39.9 s High 11.7-14.9 [facility] International normalized rat io (INR) calculationOrdered By: Kvng Crisostomo on 05-19-2024 INR Coag (Bld) [Relative time] 3.4 {INR} [facility] Prothrombin Time w/INRon INR Coag (PPP) [Relative time] 3.4 {INR} Normal [facility] Comment on above: Order Comment: 411.2 Performed By: #### L 300.3900 ####[facility] [address] [place], [place], [phone] PT Coag (PPP) [Time] 35.4 s High 11.7-14.9 [facility] Comment on above: Order Comment: 411.2 Performed By: #### L 300.3900 ####[facility] [address] [place], [place], [phone] Prothrombin timeOrdered By: Kvng Crisostomo on 05-19-2024 PT Coag (PPP) [Time] 35.4 s High 11.7-14.9 [facility] International normalized rat io (INR) calculationOrdered By: Kvng Crisostomo on 05-15-2024 INR Coag (Bld) [Relative time] 2.6 {INR} [facility] Prothrombin Time w/INRon INR Coag (PPP) [Relative time] 2.6 {INR} Normal [facility] Comment on above: Order Comment: 411.2 Performed By: #### L 300.3900 ####[facility] [address] [place], [address]) PT Coag (PPP) [Time] 28.7 s High 11.7-14.9 [facility] Comment on above: Order Comment: 411.2 Performed By: #### L 300.3900 ####[facility] [address] [place], [place], [address] Prothrombin timeOrdered By: Kvng Crisostomo on 05-15-2024 PT Coag (PPP) [Time] 28.7 s High 11.7-14.9 [facility] International normalized rat io (INR) calculationOrdered By: Carlos Cavazos on 05-12-2024 INR Coag (Bld) [Relative time] 2.1 {INR} [facility] Prothrombin Time w/INRon INR Coag (PPP) [Relative time] 2.1 {INR} Normal [facility] Comment on above: Order Comment: 411-2 Performed By: #### L 300.3900 ####[facility] [address] [place], [place], [address] PT Coag (PPP) [Time] 24.1 s High 11.7-14.9 [facility] Comment on above: Order Comment: 411-2 Performed By: #### L 300.3900 ####[facility] [address] [place], [place], [address] Prothrombin timeOrdered By: Carlos Cavazos on 05-12-2024 PT Coag (PPP) [Time] 24.1 s High 11.7-14.9 [facility] International normalized rat io (INR) calculationOrdered By: Kvng Crisostomo on 05-09-2024 INR Coag (Bld) [Relative time] 3.4 {INR} [facility] Prothrombin Time w/INRon INR Coag (PPP) [Relative time] 3.4 {INR} Normal [facility] Comment on above: Order Comment: 411.2 Performed By: #### L 300.3900 ####[facility] [address] [place], [place], [phone] PT Coag (PPP) [Time] 35.4 s High 11.7-14.9 [facility] Comment on above: Order Comment: 411.2 Performed By: #### L 300.3900 ####[facility] [address] [place], [address] Prothrombin timeOrdered By: Kvng Crisostomo on 05-09-2024 PT Coag (PPP) [Time] 35.4 s High 11.7-14.9 [facility] International normalized rat io (INR) calculationOrdered By: Kvng Crisostomo on 05-08-2024 INR Coag (Bld) [Relative time] 4.1 {INR} High [facility] Comment on above: CRITICAL VALUE CASEY D TO [facility]05/08/24 0950 [place].RESULTS READ BACK BY SAME. Prothrombin Time w/INRon INR Coag (PPP) [Relative time] 4.1 {INR} Invalid Interpretation Code [facility] Comment on above: Order Comment: 411.2 Result Comment: CRIT ICAL VALUE CALLED TO [facility]07/01 0950 [place].RESULTS READ BACK BY SAME. Performed By: #### L 300.3900 ####[facility] [address] [place], [place], [phone] PT Coag (PPP) [Time] 40.8 s High 11.7-14.9 [facility] Comment on above: Order Comment: 411.2 Performed By: #### L 300.3900 ####[facility] [address] [place], [place], [phone] Prothrombin timeOrdered By: Kvng Crisostomo on 05-08-2024 PT Coag (PPP) [Time] 40.8 s High 11.7-14.9 [facility] International normalized rat io (INR) calculationOrdered By: Kvng Crisostomo on 05-05-2024 INR Coag (Bld) [Relative time] 3.2 {INR} [facility] Prothrombin Time w/INRon INR Coag (PPP) [Relative time] 3.2 {INR} Normal [facility] Comment on above: Order Comment: 411.2 Performed By: #### L 300.3900 ####[facility] [address] [place], [address] PT Coag (PPP) [Time] 32.5 s High 11.7-14.9 [facility] Comment on above: Order Comment: 411.2 Performed By: #### L 300.3900 ####[facility] [address] [place], [address] Prothrombin timeOrdered By: Kvng Crisostomo on 05-05-2024 PT Coag (PPP) [Time] 32.5 s High 11.7-14.9 [facility] International normalized rat io (INR) calculationOrdered By: Kvng Crisostomo on 05-01-2024 INR Coag (Bld) [Relative time] 3.1 {INR} [facility] Prothrombin Time w/INRon INR Coag (PPP) [Relative time] 3.1 {INR} Normal [facility] Comment on above: Order Comment: 411.2 Performed By: #### L 300.3900 ####[facility] [address] [place], [address] PT Coag (PPP) [Time] 31.9 s High 11.7-14.9 [facility] Comment on above: Order Comment: 411.2 Performed By: #### L 300.3900 ####[facility] [address] [place], [address] Prothrombin timeOrdered By: Kvng Crisostomo on 05-01-2024 PT Coag (PPP) [Time] 31.9 s High 11.7-14.9 [facility] International normalized rat io (INR) calculationOrdered By: Carlos Cavazos on 04-28-2024 INR Coag (Bld) [Relative time] 2.6 {INR} [facility] Prothrombin Time w/INRon INR Coag (PPP) [Relative time] 2.6 {INR} Normal [facility] Comment on above: Order Comment: 411-2 Performed By: #### L 300.3900 ####[facility] [address] [place], [address] PT Coag (PPP) [Time] 27.3 s High 11.7-14.9 [facility] Comment on above: Order Comment: 411-2 Performed By: #### L 300.3900 ####[facility] [address] [place], [address] Prothrombin timeOrdered By: Carlos Cavazos on 04-28-2024 PT Coag (PPP) [Time] 27.3 s High 11.7-14.9 [facility] International normalized rat io (INR) calculationOrdered By: Kvng Crisostomo on 04-24-2024 INR Coag (Bld) [Relative time] 3.6 {INR} [facility] Prothrombin Time w/INRon INR Coag (PPP) [Relative time] 3.6 {INR} Normal [facility] Comment on above: Order Comment: 411.2 Performed By: #### L 300.3900 ####[facility] [address] [place], [address] PT Coag (PPP) [Time] 35.6 s High 11.7-14.9 [facility] Comment on above: Order Comment: 411.2 Performed By: #### L 300.3900 ####[facility] [address] [place], [address] Prothrombin timeOrdered By: Kvng Crisostomo on 04-24-2024 PT Coag (PPP) [Time] 35.6 s High 11.7-14.9 [facility] International normalized rat io (INR) calculationOrdered By: Carlos Cavazos on 04-21-2024 INR Coag (Bld) [Relative time] 2.8 {INR} [facility] Prothrombin Time w/INRon INR Coag (PPP) [Relative time] 2.8 {INR} Normal [facility] Comment on above: Order Comment: 411-2 Performed By: #### L 300.3900 ####[facility] [address] [place], [place], [phone] PT Coag (PPP) [Time] 29.4 s High 11.7-14.9 [facility] Comment on above: Order Comment: 411-2 Performed By: #### L 300.3900 ####[facility] [address] [place], [address] Prothrombin timeOrdered By: Carlos Cavazos on 04-21-2024 PT Coag (PPP) [Time] 29.4 s High 11.7-14.9 [facility] International normalized rat io (INR) calculationOrdered By: Kvng Crisostomo on 04-17-2024 INR Coag (Bld) [Relative time] 3.1 {INR} [facility] Prothrombin Time w/INRon INR Coag (PPP) [Relative time] 3.1 {INR} Normal [facility] Comment on above: Order Comment: 411.2 Performed By: #### L 300.3900 ####[facility] [address] [place], [place], [phone] Prothrombin timeOrdered By: Kvng Crisostomo on 04-17-2024 PT Coag (PPP) [Time] 31.3 s High 11.7-14.9 [facility] Comment on above: Order Comment: 411.2 Performed By: #### L 300.3900 ####[facility] [address] [place], [place], [phone]) International normalized rat io (INR) calculationOrdered By: Kvng Crisostomo on 04-14-2024 INR Coag (Bld) [Relative time] 3.3 {INR} [facility] Prothrombin Time w/INRon INR Coag (PPP) [Relative time] 3.3 {INR} Normal [facility] Comment on above: Order Comment: 411.2 Performed By: #### L 300.3900 ####[facility] [address] [place], [address] PT Coag (PPP) [Time] 33.2 s High 11.7-14.9 [facility] Comment on above: Order Comment: 411.2 Performed By: #### L 300.3900 ####[facility] [address] [place], [address] Prothrombin timeOrdered By: Kvng Crisostomo on 04-14-2024 PT Coag (PPP) [Time] 33.2 s High 11.7-14.9 [facility] [employer] normalized rat io (INR) calculationOrdered By: Kvng Crisostomo on 04-10-2024 INR Coag (Bld) [Relative time] 2.8 {INR} [facility] Prothrombin Time w/INRon INR Coag (PPP) [Relative time] 2.8 {INR} Normal [facility] Comment on above: Order Comment: 411.2 Performed By: #### L 300.3900 ####[facility] [address] [place], [address] PT Coag (PPP) [Time] 29.2 s High 11.7-14.9 [facility] Comment on above: Order Comment: 411.2 Performed By: #### L 300.3900 ####[facility] [address] [place], [address] Prothrombin timeOrdered By: Kvng Crisostomo on 04-10-2024 PT Coag (PPP) [Time] 29.2 s High 11.7-14.9 [facility] [employer] normalized rat io (INR) calculationOrdered By: Carlos Cavazos on 04-07-2024 INR Coag (Bld) [Relative time] 2.7 {INR} [facility] Prothrombin Time w/INRon INR Coag (PPP) [Relative time] 2.7 {INR} Normal [facility] Comment on above: Order Comment: 411-2 Performed By: #### L 300.3900 ####[facility] [address] [place], [address] PT Coag (PPP) [Time] 28.1 s High 11.7-14.9 [facility] Comment on above: Order Comment: 411-2 Performed By: #### L 300.3900 ####[facility] [address] [place], [address] Prothrombin timeOrdered By: Carlos Cavazos on 04-07-2024 PT Coag (PPP) [Time] 28.1 s High 11.7-14.9 [facility] [employer] normalized rat io (INR) calculationOrdered By: Kvng Crisostomo on 04-04-2024 INR Coag (Bld) [Relative time] 2.8 {INR} [facility] Prothrombin Time w/INRon INR Coag (PPP) [Relative time] 2.8 {INR} Normal [facility] Comment on above: Order Comment: 411.2 Performed By: #### L 300.3900 ####[facility] [address] [place], [address] PT Coag (PPP) [Time] 28.9 s High 11.7-14.9 [facility] Comment on above: Order Comment: 411.2 Performed By: #### L 300.3900 ####[facility] [address] [place], [address] Prothrombin timeOrdered By: Kvng Crisostomo on 04-04-2024 PT Coag (PPP) [Time] 28.9 s High 11.7-14.9 [facility] [employer] normalized rat io (INR) calculationOrdered By: Carlos Cavazos on 03-31-2024 INR Coag (Bld) [Relative time] 2.6 {INR} [facility] Prothrombin Time w/INRon INR Coag (PPP) [Relative time] 2.6 {INR} Normal [facility] Comment on above: Order Comment: 411-2 Performed By: #### L 300.3900 ####[facility] [address] [place], [address] PT Coag (PPP) [Time] 27.3 s High 11.7-14.9 [facility] Comment on above: Order Comment: 411-2 Performed By: #### L 300.3900 ####[facility] [address] [place], [address] Prothrombin timeOrdered By: Carlos Cavazos on 03-31-2024 PT Coag (PPP) [Time] 27.3 s High 11.7-14.9 [facility] [employer] normalized rat io (INR) calculationOrdered By: [employer] on 03-27-2024 INR Coag (Bld) [Relative time] 2.2 {INR} [facility] Prothrombin Time w/INRon INR Coag (PPP) [Relative time] 2.2 {INR} Normal [facility] Comment on above: Order Comment: 411.2 Performed By: #### L 300.3900 ####[facility] [address] [place], [address] PT Coag (PPP) [Time] 24.3 s High 11.7-14.9 [facility] Comment on above: Order Comment: 411.2 Performed By: #### L 300.3900 ####[facility] [address] [place], [address] Prothrombin timeOrdered By: [employer] on 03-27-2024 PT Coag (PPP) [Time] 24.3 s High 11.7-14.9 [facility] [employer] normalized rat io (INR) calculationOrdered By: Kvng Crisostomo on 03-24-2024 INR Coag (Bld) [Relative time] 1.8 {INR} [facility] Prothrombin Time w/INRon INR Coag (PPP) [Relative time] 1.8 {INR} Normal [facility] Comment on above: Order Comment: 411.2 Performed By: #### L 300.3900 ####[facility] [address] [place], [address] PT Coag (PPP) [Time] 20.7 s High 11.7-14.9 [facility] Comment on above: Order Comment: 411.2 Performed By: #### L 300.3900 ####[facility] [address] [place], [address] Prothrombin timeOrdered By: Kvng Crisostomo on 03-24-2024 PT Coag (PPP) [Time] 20.7 s High 11.7-14.9 [facility] [employer] normalized rat io (INR) calculationOrdered By: [employer] on 03-20-2024 INR Coag (Bld) [Relative time] 1.8 {INR} [facility] Prothrombin Time w/INRon INR Coag (PPP) [Relative time] 1.8 {INR} Normal [facility] Comment on above: Order Comment: 411.2 Performed By: #### L 300.3900 ####[facility] [address] [place], [address] PT Coag (PPP) [Time] 20.9 s High 11.7-14.9 [facility] Comment on above: Order Comment: 411.2 Performed By: #### L 300.3900 ####[facility] [address] [place], [address] Prothrombin timeOrdered By: [employer] on 03-20-2024 PT Coag (PPP) [Time] 20.9 s High 11.7-14.9 [facility] [employer] normalized rat io (INR) calculationOrdered By: Babbaljeet Crisostomo on 03-19-2024 INR Coag (Bld) [Relative time] 2.4 {INR} [facility] Prothrombin Time w/INRon INR Coag (PPP) [Relative time] 2.4 {INR} Normal [facility] Comment on above: Order Comment: 411.2 Performed By: #### L 300.3900 ####[facility] [address] [place], [address] PT Coag (PPP) [Time] 26.4 s High 11.7-14.9 [facility] Comment on above: Order Comment: 411.2 Performed By: #### L 300.3900 ####[facility] [address] [place], [address] Prothrombin timeOrdered By: Kvng Crisostomo on 03-19-2024 PT Coag (PPP) [Time] 26.4 s High 11.7-14.9 [facility] [employer] normalized rat io (INR) calculationOrdered By: [employer] on 03-18-2024 INR Coag (Bld) [Relative time] 3.2 {INR} [facility] Prothrombin Time w/INRon INR Coag (PPP) [Relative time] 3.2 {INR} Normal [facility] Comment on above: Order Comment: 411.2 Performed By: #### L 300.3900 ####[facility] [address] [place], [address] PT Coag (PPP) [Time] 32.3 s High 11.7-14.9 [facility] Comment on above: Order Comment: 411.2 Performed By: #### L 300.3900 ####[facility] [address] [place], [address] Prothrombin timeOrdered By: [employer] on 03-18-2024 PT Coag (PPP) [Time] 32.3 s High 11.7-14.9 [facility] [employer] normalized rat io (INR) calculationOrdered By: [employer] on 03-17-2024 INR Coag (Bld) [Relative time] 3.6 {INR} [facility] Prothrombin Time w/INRon INR Coag (PPP) [Relative time] 3.6 {INR} Normal [facility] Comment on above: Order Comment: 411.2 Performed By: #### L 300.3900 ####[facility] [address] [place], [place], [id number] PT Coag (PPP) [Time] 35.7 s High 11.7-14.9 [facility] Comment on above: Order Comment: 411.2 Performed By: #### L 300.3900 ####[facility] [address] [place], [place], [id number] Prothrombin timeOrdered By: [employer] on 03-17-2024 PT Coag (PPP) [Time] 35.7 s High 11.7-14.9 [facility] [employer] normalized rat io (INR) calculationOrdered By: Carlos Cavazos on 03-14-2024 INR Coag (Bld) [Relative time] 3.5 {INR} [facility] Prothrombin Time w/INRon INR Coag (PPP) [Relative time] 3.5 {INR} Normal [facility] Comment on above: Order Comment: 411-2 Performed By: #### L 300.3900 ####[facility] [address] [place], [address] PT Coag (PPP) [Time] 35.0 s High 11.7-14.9 [facility] Comment on above: Order Comment: 411-2 Performed By: #### L 300.3900 ####[facility] [address] [place], [address] Prothrombin timeOrdered By: Carlos Cavazos on 03-14-2024 PT Coag (PPP) [Time] 35.0 s High 11.7-14.9 [facility] [employer] normalized rat io (INR) calculationOrdered By: [employer] on 03-13-2024 INR Coag (Bld) [Relative time] 3.2 {INR} [facility] Prothrombin Time w/INRon INR Coag (PPP) [Relative time] 3.2 {INR} Normal [facility] Comment on above: Performed By: #### L 300.3900 ####[facility] [address] [place], [place], [address] PT Coag (PPP) [Time] 32.2 s High 11.7-14.9 [facility] Comment on above: Performed By: #### L 300.3900 ####[facility] [address] [place], [place], [address] Prothrombin timeOrdered By: [employer] on 03-13-2024 PT Coag (PPP) [Time] 32.2 s High 11.7-14.9 [facility] Office Visiton 09-13-2023 Follow-up visit [id number] Tamie Sifuentes cheng Gonzalez 1950 M Pasha Provider Department Center 09/13/2023 [id number] BUCK [facility] URO None Family History Problem Relation Age of Onset Heart disease Father Cancer Mother Family Status - Relation Status Age at Father Mother Level of Service:87740 OR OFFICE/OUTPATIENT ESTABLISHED MOD MDM 30 MIN Reason for Visit and Comments: left flank pain [Other] - 8/10 pain when touched Normal [facility] Progress Noteon 09-13-2023 Progress Note Walt Moran [...] Hydrocephalus, adult (CMS/HCC) (HCC) Kidney stone 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 Normal [facility] CT ABDOMEN PELVIS WO IV CONT RASTon 05-03-2024 CT ABDOMEN PELVIS WO IV CONTRAST Patient Name: ANDREW SIFUENTES : [address] [facility]#: [id number] Exam Date/Time: 09/06/2023 18:14 Procedure: CT ABDOMEN [...] a kidney stone; pt has a hernia [facility] 36on 08-29-2023 36 Lm on daughters vm t o advise them to call the number for the manager e learning to get clarification, and to call back with further questions [place] [address]on 08-27-2023 36 Yes, they will need to call the number given to them. [facility] 36 Please advise [address] 08-21-2023 36 Name of caller: Zion holt Contact phone number: [phone] Relationship to Patient: patient Provider: MD Quinn Practice: [facility] Urology Chief Complaint/Reason for Call: Shanthi called [...] to reach out to call Maury Cedeño [employer] Body Repairer at [facility] [phone] to get clarifications. TEA did reach back out to [facility] and advised and provider Maury's #. Please advise Best time of day caller can be reached: Any Patient advised that office/PCP has 24-48 business hours to return their call: N/A [facility] Laboratory - CoagulationOrde red By: Carlos Cavazos on 08-21-2023 INR Coag (Bld) [Relative time] 2.7 {INR} [facility] PT Coag (PPP) [Time] 28.9 s 11.7-14.9 [facility] Office Visiton 08-13-2023 Follow-up visit [id number] Tamie Sifuentes 1950 M Date Provider Department Center 08/13/2023 [id number] BUCK [facility] URO None Family History Problem Relation Age of Onset Heart disease Father Cancer Mother Family Status - Relation Status Age at Father Mother Level of Service:84227 OR OFFICE/OUTPATIENT NEW MODERATE MDM 45 MINUTES Reason for Visit and Comments: New Patient [542] - Bilateral flank pain, hx of kidney stones Nephrolithiasis [171829] Normal [facility] Progress Noteon 08-13-2023 Progress Note Walt Moran [...] Hydrocephalus, adult (CMS/HCC) (HCC) Kidney stone 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 Normal [facility] No Panel InformationOrdered By: Carlos Cavazos on 08-03-2023 Levetiracetam (Keppra) Level 32.4 ug/mL 10.0-40.0 [facility] Comment on above: Performed at: [address] [id number] Director: Alpesh Vázquez MD, Phone: [phone] Basophil percentageOrdered B y: Carlos Cavazos on 07-20-2023 Chloride [Moles/Vol] 106 mmol/L 98-107 [facility] Glucose [Mass/Vol] 98 mg/dL 74-106 [facility] Hemoglobin (Bld) [Mass/Vol] 12.5 g/dL 13.0-16.5 [facility] Potassium [Moles/Vol] 4.3 mmol/L 3.5-5.1 [facility] Sodium [Moles/Vol] 135 mmol/L 136-145 [facility] WBC (Bld) [#/Vol] 13.0 10*3/uL 4.4-11.0 [facility] Determination of erythrocyte mean corpuscular volume (MCV)Ordered By: Carlos Cavazos on 07-20-2023 MCV (RBC) [Entitic vol] 86.2 fL 80-94 [facility] Erythrocyte distribution wid th ratioOrdered By: Carlos Cavazos on 07-20-2023 Erythrocyte distribution width (RBC) [Ratio] 15.3 % 11.6-14.6 [facility] Erythrocyte distribution wid th standard deviationOrdered By: Carlos Cavazos on 07-20-2023 Erythrocyte distribution width (RBC) [Entitic vol] 48.1 fL 35.1-43.9 [facility] Hematocrit Auto (Bld) [Volum e fraction]Ordered By: Carlos Cavazos on 07-20-2023 Hematocrit (Bld) [Volume fraction] 39.9 % 40-54 [facility] Laboratory - Chemistry and C hemistry - challengeOrdered By: Carlos Cavazos on 07-20-2023 CO2 [Moles/Vol] 24.0 mmol/L 21.0-32.0 [facility] Urea nitrogen/Creatinine [Mass ratio] 24.6 mg/mg 10-20 [facility] Laboratory - Hematology and Cell countsOrdered By: Carlos Cavazos on 07-20-2023 MCH (RBC) [Entitic mass] 27.0 pg 27.0-32.0 [facility] MCHC (RBC) [Mass/Vol] 31.3 g/dL 32-36 [facility] Platelet mean volume (Bld) [Entitic vol] 10.7 fL 6.2-12.0 [facility] Platelets (Bld) [#/Vol] 260 10*3/uL 150-450 [facility] No Panel InformationOrdered By: Carlos Cavazos on 07-20-2023 Estimated GFR (MDRD) Amer 114 mL/min >60 [facility] Comment on above: GFR Calc Estimated GFR (MDRD) Non-Af Amer 94 mL/min >60 [facility] Comment on above: Non- GFR Calc RBC Auto (Bld) [#/Vol]Ordere d By: Carlos Cavazos on 07-20-2023 RBC (Bld) [#/Vol] 4.63 10*6/uL 4.6-6.2 [facility] Serum or plasma calcium oral urement (mass/volume)Ordered By: Carlos Cavazos on 07-20-2023 Calcium [Mass/Vol] 8.6 mg/dL 8.5-10.1 [facility] Serum or plasma creatinine m easurement (mass/volume)Ordered By: Carlos Cavazos on 07-20-2023 Creatinine [Mass/Vol] 0.85 mg/dL 0.70-1.30 [facility] Comment on above: The validity of the calculated GFR & GFRAA in patients over 70 years has not been determined. Clinical correlation is essential. Serum or plasma urea nitroge n measurement (mass/volume)Ordered By: Carlos Cvaazos on 07-20-2023 Urea nitrogen [Mass/Vol] 21 mg/dL 7-18 [facility] Thin prep Papanicolaou smear with manual screeningOrdered By: Carlos Cavazos on 07-20-2023 Thin prep Papanicolaou smear with manual screening 5 5-15 [facility] Basophil percentageOrdered B y: Carlos Cavazos on 07-18-2023 Chloride [Moles/Vol] 102 mmol/L 98-107 [facility] Glucose [Mass/Vol] 96 mg/dL 74-106 [facility] Hemoglobin (Bld) [Mass/Vol] 12.3 g/dL 13.0-16.5 [facility] Potassium [Moles/Vol] 4.2 mmol/L 3.5-5.1 [facility] Sodium [Moles/Vol] 136 mmol/L 136-145 [facility] WBC (Bld) [#/Vol] 14.7 10*3/uL 4.4-11.0 [facility] Determination of erythrocyte mean corpuscular volume (MCV)Ordered By: Carlos Cavazos on 07-18-2023 MCV (RBC) [Entitic vol] 85.4 fL 80-94 [facility] Erythrocyte distribution wid th ratioOrdered By: Carlos Cavazos on 07-18-2023 Erythrocyte distribution width (RBC) [Ratio] 15.1 % 11.6-14.6 [facility] Erythrocyte distribution wid th standard deviationOrdered By: Carlos Cavazos on 07-18-2023 Erythrocyte distribution width (RBC) [Entitic vol] 47.3 fL 35.1-43.9 [facility] Hematocrit Auto (Bld) [Volum e fraction]Ordered By: Carlos Cavazos on 07-18-2023 Hematocrit (Bld) [Volume fraction] 39.3 % 40-54 [facility] Laboratory - Chemistry and C hemistry - challengeOrdered By: Carlos Cavazos on 07-18-2023 CO2 [Moles/Vol] 27.0 mmol/L 21.0-32.0 [facility] Urea nitrogen/Creatinine [Mass ratio] 24.4 mg/mg 10-20 [facility] Laboratory - Hematology and Cell countsOrdered By: Carlos Cavazos on 07-18-2023 MCH (RBC) [Entitic mass] 26.7 pg 27.0-32.0 [facility] MCHC (RBC) [Mass/Vol] 31.3 g/dL 32-36 [facility] Platelet mean volume (Bld) [Entitic vol] 10.3 fL 6.2-12.0 [facility] Platelets (Bld) [#/Vol] 288 10*3/uL 150-450 [facility] No Panel InformationOrdered By: Carlos Cavazos on 07-18-2023 Estimated GFR (MDRD) Amer 113 mL/min >60 [facility] Comment on above: GFR Calc Estimated GFR (MDRD) Non-Af Amer 93 mL/min >60 [facility] Comment on above: Non- GFR Calc RBC Auto (Bld) [#/Vol]Ordere d By: Carlos Cavazos on 07-18-2023 RBC (Bld) [#/Vol] 4.60 10*6/uL 4.6-6.2 [facility] Serum or plasma calcium oral urement (mass/volume)Ordered By: Carlos Cavazos on 07-18-2023 Calcium [Mass/Vol] 8.9 mg/dL 8.5-10.1 [facility] Serum or plasma creatinine m easurement (mass/volume)Ordered By: Carlos Cavazos on 07-18-2023 Creatinine [Mass/Vol] 0.86 mg/dL 0.70-1.30 [facility] Comment on above: The validity of the calculated GFR & GFRAA in patients over 70 years has not been determined. Clinical correlation is essential. Serum or plasma urea nitroge n measurement (mass/volume)Ordered By: Carlos Cavazos on 07-18-2023 Urea nitrogen [Mass/Vol] 21 mg/dL 7-18 [facility] Thin prep Papanicolaou smear with manual screeningOrdered By: Carlos Cavazos on 07-18-2023 Thin prep Papanicolaou smear with manual screening 7 5-15 [facility] Basophil percentageOrdered B y: Carlos Cavazos on 07-17-2023 Basophil percentage 0-5 SEEN /hpf 0-5 [facility] Bilirubin Test strip Ql (U)O rdered By: Carlos Cavazos on 07-17-2023 Bilirubin Ql (U) Negative Negative [facility] Calcium oxalate crystals det ection in urine sediment by light microscopyOrdered By: Carlos Cavazos on 07-17-2023 Calcium oxalate crystals LM Ql (Urine sed) 1+ /hpf [facility] Culture, urineOrdered By: Sharif Crouch on 07-17-2023 Bacteria identified Cx Nom (U) Positive [facility] Ketones Test strip Ql (U)Ord ered By: Carlos Cavazos on 07-17-2023 Ketones Ql (U) Negative Negative [facility] Mucus LM Ql (Urine sed)Order ed By: Carlos Cavazos on 07-17-2023 Mucus Ql (Urine sed) 0 SEEN /hpf [facility] Nitrite Test strip Ql (U)Ord ered By: Carlos Cavazos on 07-17-2023 Nitrite Ql (U) Negative Negative [facility] No Panel InformationOrdered By: Carlos Cavazos on 07-17-2023 Urine RBC 0 SEEN /hpf 0-5 [facility] Protein Test strip Ql (U)Ord ered By: Carlos Cavazos on 07-17-2023 Protein Ql (U) Negative Negative [facility] Squamous epithelial cells de tection in urine sediment by light microscopyOrdered By: Carlos Cavazos on 07-17-2023 Epithelial cells.squamous LM Ql (Urine sed) 0-5 SEEN /hpf 0-5 [facility] Urine blood detectionOrdered By: Carlos Cavazos on 07-17-2023 RBC Ql (U) Negative Negative [facility] Urine clarityOrdered By: Ted Cavazos on 07-17-2023 Clarity (U) Clear Clear [facility] Urine color determinationOrd ered By: Carlos Cavazos on 07-17-2023 Color (U) Yellow Yellow [facility] Urine glucose detectionOrder ed By: Carlos Cavazos on 07-17-2023 Glucose Ql (U) Normal mg/dl Normal [facility] Urine leukocyte esterase det ection by dipstickOrdered By: Carlos Cavazos on 07-17-2023 Leukocyte esterase Test strip Ql (U) 25 /ul Negative [facility] Urine pHOrdered By: Carlos flores on 07-17-2023 pH (U) 6.0 [pH] 5.0 - 8.0 [facility] Urine sediment bacteria coun t by microscopy (number/high power field)Ordered By: Carlos Cavazos on 07-17-2023 Bacteria LM.HPF (Urine sed) [#/Area] 0 /[HPF] None Seen [facility] Urine specific gravity measu rementOrdered By: Carlos Cavazos on 07-17-2023 Specific gravity (U) [Rel density] 1.020 1.002-1.030 [facility] Urine urobilinogen measureme ntOrdered By: Carlos Cavazos on 07-17-2023 Urobilinogen Ql (U) Normal mg/dl Normal [facility] Absolute lymphocyte countOrd ered By: Carlos Cavazos on 07-16-2023 Lymphocytes Auto (Unsp spec) [#/Vol] 6.02 10*3/uL 0.83-4.51 [facility] Automated lymphocyte count a s percentage of total leukocytesOrdered By: Carlos Cavazos on 07-16-2023 Lymphocytes/100 WBC Auto (Unsp spec) 49.1 % 19-41 [facility] Basophil percentageOrdered B y: Carlos Cavazos on 07-16-2023 Basophils/100 WBC (Bld) 0.6 % 0-1 [facility] Chloride [Moles/Vol] 105 mmol/L 98-107 [facility] Eosinophils/100 WBC (Bld) 2.0 % 0-5 [facility] Glucose [Mass/Vol] 93 mg/dL 74-106 [facility] Hemoglobin (Bld) [Mass/Vol] 12.1 g/dL 13.0-16.5 [facility] Monocytes/100 WBC (Bld) 5.3 % 0-10 [facility] Neutrophils (Bld) [#/Vol] 5.2 10*3/uL 2.0-7.7 [facility] Neutrophils/100 WBC (Bld) 42.8 % 47-70 [facility] Potassium [Moles/Vol] 4.3 mmol/L 3.5-5.1 [facility] Sodium [Moles/Vol] 138 mmol/L 136-145 [facility] WBC (Bld) [#/Vol] 12.3 10*3/uL 4.4-11.0 [facility] Blood manual differential co mment interpretation (narrative result)Ordered By: Carlos Cavazos on 07-16-2023 Manual differential comment Shemar (Bld) [Interp] SCANNED [facility] Determination of erythrocyte mean corpuscular volume (MCV)Ordered By: Carlos Cavazos on 07-16-2023 MCV (RBC) [Entitic vol] 86.8 fL 80-94 [facility] Erythrocyte distribution wid th ratioOrdered By: Carlos Cavazos on 07-16-2023 Erythrocyte distribution width (RBC) [Ratio] 15.3 % 11.6-14.6 [facility] Erythrocyte distribution wid th standard deviationOrdered By: Carlos Cavazos on 07-16-2023 Erythrocyte distribution width (RBC) [Entitic vol] 48.9 fL 35.1-43.9 [facility] Hematocrit Auto (Bld) [Volum e fraction]Ordered By: Carlos Cavazos on 07-16-2023 Hematocrit (Bld) [Volume fraction] 38.7 % 40-54 [facility] Immature granulocytes/100 WB C Auto (Bld)Ordered By: Carlos Cavazos on 07-16-2023 Immature granulocytes/100 WBC (Bld) 0.200 % 0.0-0.9 [facility] Comment on above: IG% - Immature Granu locytes (promyelocytes, myelocytes and metamyelocytes) > 1% indicates that a LEFT SHIFT is Present. Laboratory - Chemistry and C hemistry - challengeOrdered By: Carlos Cavazos on 07-16-2023 CO2 [Moles/Vol] 25.0 mmol/L 21.0-32.0 [facility] Urea nitrogen/Creatinine [Mass ratio] 21.0 mg/mg 10-20 [facility] Laboratory - CoagulationOrde red By: Carlos Cavazos on 07-16-2023 INR Coag (Bld) [Relative time] 2.4 {INR} [facility] PT Coag (PPP) [Time] 25.7 s 11.7-14.9 [facility] Laboratory - Hematology and Cell countsOrdered By: Carlos Cavazos on 07-16-2023 MCH (RBC) [Entitic mass] 27.1 pg 27.0-32.0 [facility] MCHC (RBC) [Mass/Vol] 31.3 g/dL 32-36 [facility] Nucleated RBC/100 WBC (Bld) [Ratio] 0 % 0-5 [facility] Platelet mean volume (Bld) [Entitic vol] 10.5 fL 6.2-12.0 [facility] Platelets (Bld) [#/Vol] 289 10*3/uL 150-450 [facility] No Panel InformationOrdered By: Carlos Cavazos on 07-16-2023 Estimated GFR (MDRD) Amer 106 mL/min >60 [facility] Comment on above: GFR Calc Estimated GFR (MDRD) Non-Af Amer 88 mL/min >60 [facility] Comment on above: Non- GFR Calc Reactive Lymphocytes 1+ [facility] RBC Auto (Bld) [#/Vol]Ordere d By: Carlos Cavazos on 07-16-2023 RBC (Bld) [#/Vol] 4.46 10*6/uL 4.6-6.2 [facility] Serum or plasma calcium oral urement (mass/volume)Ordered By: Carlos Cavazos on 07-16-2023 Calcium [Mass/Vol] 9.0 mg/dL 8.5-10.1 [facility] Serum or plasma creatinine m easurement (mass/volume)Ordered By: Carlos Cavazos on 07-16-2023 Creatinine [Mass/Vol] 0.90 mg/dL 0.70-1.30 [facility] Comment on above: The validity of the calculated GFR & GFRAA in patients over 70 years has not been determined. Clinical correlation is essential. Serum or plasma urea nitroge n measurement (mass/volume)Ordered By: Carlos Cavazos on 07-16-2023 Urea nitrogen [Mass/Vol] 19 mg/dL 7-18 [facility] Thin prep Papanicolaou smear with manual screeningOrdered By: Carlos Cavazos on 07-16-2023 Thin prep Papanicolaou smear with manual screening 8 5-15 [facility] Absolute lymphocyte countOrd ered By: Carlos Cavazos on 07-13-2023 Lymphocytes Auto (Unsp spec) [#/Vol] 5.44 10*3/uL 0.83-4.51 [facility] Automated lymphocyte count a s percentage of total leukocytesOrdered By: Carlos Cavazos on 07-13-2023 Lymphocytes/100 WBC Auto (Unsp spec) 47.3 % 19-41 [facility] Basophil percentageOrdered B y: Carlos Cavazos on 07-13-2023 Basophils/100 WBC (Bld) 0.4 % 0-1 [facility] Chloride [Moles/Vol] 107 mmol/L 98-107 [facility] Eosinophils/100 WBC (Bld) 1.7 % 0-5 [facility] Glucose [Mass/Vol] 96 mg/dL 74-106 [facility] Hemoglobin (Bld) [Mass/Vol] 13.5 g/dL 13.0-16.5 [facility] Monocytes/100 WBC (Bld) 4.3 % 0-10 [facility] Neutrophils (Bld) [#/Vol] 5.3 10*3/uL 2.0-7.7 [facility] Neutrophils/100 WBC (Bld) 46.0 % 47-70 [facility] Potassium [Moles/Vol] 4.0 mmol/L 3.5-5.1 [facility] Sodium [Moles/Vol] 139 mmol/L 136-145 [facility] WBC (Bld) [#/Vol] 11.5 10*3/uL 4.4-11.0 [facility] Determination of erythrocyte mean corpuscular volume (MCV)Ordered By: Carlos Cavazos on 07-13-2023 MCV (RBC) [Entitic vol] 86.1 fL 80-94 [facility] Erythrocyte distribution wid th ratioOrdered By: Carlos Cavazos on 07-13-2023 Erythrocyte distribution width (RBC) [Ratio] 15.2 % 11.6-14.6 [facility] Erythrocyte distribution wid th standard deviationOrdered By: Carlos Cavazos on 07-13-2023 Erythrocyte distribution width (RBC) [Entitic vol] 48.0 fL 35.1-43.9 [facility] Hematocrit Auto (Bld) [Volum e fraction]Ordered By: Carlos Cavazos on 07-13-2023 Hematocrit (Bld) [Volume fraction] 42.2 % 40-54 [facility] Immature granulocytes/100 WB C Auto (Bld)Ordered By: Carlos Cavazos on 07-13-2023 Immature granulocytes/100 WBC (Bld) 0.300 % 0.0-0.9 [facility] Comment on above: IG% - Immature Granu locytes (promyelocytes, myelocytes and metamyelocytes) > 1% indicates that a LEFT SHIFT is Present. Laboratory - Chemistry and C hemistry - challengeOrdered By: Carlos Cavazos on 07-13-2023 CO2 [Moles/Vol] 26.0 mmol/L 21.0-32.0 [facility] Urea nitrogen/Creatinine [Mass ratio] 21.8 mg/mg 10-20 [facility] Laboratory - Hematology and Cell countsOrdered By: Carlos Cavazos on 07-13-2023 MCH (RBC) [Entitic mass] 27.6 pg 27.0-32.0 [facility] MCHC (RBC) [Mass/Vol] 32.0 g/dL 32-36 [facility] Nucleated RBC/100 WBC (Bld) [Ratio] 0 % 0-5 [facility] Platelet mean volume (Bld) [Entitic vol] 10.1 fL 6.2-12.0 [facility] Platelets (Bld) [#/Vol] 279 10*3/uL 150-450 [facility] No Panel InformationOrdered By: Carlos Cavazos on 07-13-2023 Estimated GFR (MDRD) Amer 118 mL/min >60 [facility] Comment on above: GFR Calc Estimated GFR (MDRD) Non-Af Amer 98 mL/min >60 [facility] Comment on above: Non- GFR Calc Levetiracetam (Keppra) Level 25.5 ug/mL 10.0-40.0 [facility] Comment on above: Performed at: - [facility] [address] [id number] Director: Alpesh Vázquez MD, Phone: [phone] RBC Auto (Bld) [#/Vol]Ordere d By: Carlos Cavazos on 07-13-2023 RBC (Bld) [#/Vol] 4.90 10*6/uL 4.6-6.2 [facility] Serum or plasma calcium oral urement (mass/volume)Ordered By: Carlos Cavazos on 07-13-2023 Calcium [Mass/Vol] 9.1 mg/dL 8.5-10.1 [facility] Serum or plasma creatinine m easurement (mass/volume)Ordered By: Carlos Cavazos on 07-13-2023 Creatinine [Mass/Vol] 0.82 mg/dL 0.70-1.30 [facility] Comment on above: The validity of the calculated GFR & GFRAA in patients over 70 years has not been determined. Clinical correlation is essential. Serum or plasma urea nitroge n measurement (mass/volume)Ordered By: Carlos Cavazos on 07-13-2023 Urea nitrogen [Mass/Vol] 18 mg/dL 7-18 [facility] Thin prep Papanicolaou smear with manual screeningOrdered By: Carlos Cavazos on 07-13-2023 Thin prep Papanicolaou smear with manual screening 6 5-15 [facility] No Panel InformationOrdered By: Carlos Cavazos on 07-12-2023 Valproic Acid (Depakene) Level < 3 ug/mL 50-100 [facility] - CoagulationOrde red By: Carlos Cavazos on 07-05-2023 INR Coag (Bld) [Relative time] 2.4 {INR} [facility] PT Coag (PPP) [Time] 26.3 s 11.7-14.9 [facility] - CoagulationOrde red By: Carlos Cavazos on 07-02-2023 INR Coag (Bld) [Relative time] 1.5 {INR} [facility] PT Coag (PPP) [Time] 18.5 s 11.7-14.9 [facility] - CoagulationOrde red By: Carlos Cavazos on 06-28-2023 INR Coag (Bld) [Relative time] 1.7 {INR} [facility] PT Coag (PPP) [Time] 20.5 s 11.7-14.9 [facility] 36on 06-25-2023 36 [facility] tuary called in stating appt scheduled 07/10/23 Guy has to be made further out, pt being transported by cot. Changed appt to 08/13/23 per [facility] only avail time for transport, first avail with DR Buck at 10:00 AM. [facility] Laboratory - CoagulationOrde red By: Carlos Cavazos on 06-25-2023 INR Coag (Bld) [Relative time] 3.8 {INR} [facility] PT Coag (PPP) [Time] 38.2 s 11.7-14.9 [facility] - CoagulationOrde red By: Carlos Cavazos on 06-21-2023 INR Coag (Bld) [Relative time] 3.2 {INR} [facility] PT Coag (PPP) [Time] 32.9 s 11.7-14.9 [facility] No Panel InformationOrdered By: Carlos Cavazos on 06-13-2023 Valproic Acid (Depakene) Level < 3 ug/mL 50-100 [facility] - CoagulationOrde red By: Carlos Cavazos on 06-06-2023 PT Coag (PPP) [Time] 30.5 s 11.7-14.9 [facility] Platelet poor plasma interna tional normalized ratio (INR)Ordered By: Carlos Cavazos on 06-06-2023 INR Coag (PPP) [Relative time] 2.9 {INR} [facility] International normalized rat io (INR) calculationOrdered By: Carlos Cavazos on 05-23-2023 INR Coag (PPP) [Relative time] 2.6 {INR} [facility] - CoagulationOrde red By: Carlos Cavazos on 05-23-2023 PT Coag (PPP) [Time] 27.7 s 11.7-14.9 [facility] - CoagulationOrde red By: Carlos Cavazos on 05-09-2023 PT Coag (PPP) [Time] 24.1 s 11.7-14.9 [facility] Whole blood international no rmalized ratio (INR)Ordered By: Carlos Cavazos on 05-09-2023 INR Coag (Bld) [Relative time] 2.1 {INR} [facility] - CoagulationOrde red By: Carlos Cavazos on 04-23-2023 PT Coag (PPP) [Time] 26.4 s 11.7-14.9 [facility] Whole blood international no rmalized ratio (INR)Ordered By: Carlos Cavazos on 04-23-2023 INR Coag (Bld) [Relative time] 2.4 {INR} [facility] INR in Blood by Coagulation assayOrdered By: Carlos Cavazos on 04-09-2023 INR Coag (Bld) [Relative time] 2.1 {INR} [facility] - CoagulationOrde red By: Carlos Cavazos on 04-09-2023 PT Coag (PPP) [Time] 23.9 s 11.7-14.9 [facility] INR in Blood by Coagulation assayOrdered By: Carlos Cavazos on 04-02-2023 INR Coag (Bld) [Relative time] 2.2 {INR} [facility] - CoagulationOrde red By: Carlos Cavazos on 04-02-2023 PT Coag (PPP) [Time] 24.5 s 11.7-14.9 [facility] INR in Blood by Coagulation assayOrdered By: Carlos Cavazos on 03-26-2023 INR Coag (Bld) [Relative time] 1.7 {INR} [facility] - CoagulationOrde red By: Carlos Cavazos on 03-26-2023 PT Coag (PPP) [Time] 19.9 s 11.7-14.9 [facility] INR in Blood by Coagulation assayOrdered By: Carlos Cavazos on 03-22-2023 INR Coag (Bld) [Relative time] 1.3 {INR} [facility] - CoagulationOrde red By: Carlos Cavazos on 03-22-2023 PT Coag (PPP) [Time] 16.4 s 11.7-14.9 [facility] INR in Blood by Coagulation assayOrdered By: Carlos Cavazos on 03-08-2023 INR Coag (Bld) [Relative time] 2.0 {INR} [facility] - CoagulationOrde red By: Carlos Cavazos on 03-08-2023 PT Coag (PPP) [Time] 22.5 s 11.7-14.9 [facility] - CoagulationOrde red By: Carlos Cavazos on 02-22-2023 INR Coag (Bld) [Relative time] 2.2 {INR} [facility] Comment on above: Critical Value > 4.0 Whole blood prothrombin time Ordered By: Carlos Cavazos on 02-22-2023 PT Coag (Bld) [Time] 24.0 s 11.7-14.9 [facility] INR in Blood by Coagulation assayOrdered By: Cliff Bruner on 02-15-2023 INR Coag (Bld) [Relative time] 2.0 {INR} [facility] - CoagulationOrde red By: Cliff Bruner on 02-15-2023 PT Coag (PPP) [Time] 22.8 s 11.7-14.9 [facility] INR in Blood by Coagulation assayOrdered By: Carlos Cavazos on 02-08-2023 INR Coag (Bld) [Relative time] 2.1 {INR} [facility] - CoagulationOrde red By: Carlos Cavazos on 02-08-2023 PT Coag (PPP) [Time] 23.5 s 11.7-14.9 [facility] INR in Blood by Coagulation assayOrdered By: Carlos Cavazos on 01-31-2023 INR Coag (Bld) [Relative time] 2.0 {INR} [facility] - CoagulationOrde red By: Carlos Cavazos on 01-31-2023 PT Coag (PPP) [Time] 22.4 s 11.7-14.9 [facility] - CoagulationOrde red By: Carlos Cavazos on 01-29-2023 INR Coag (Bld) [Relative time] 1.8 {INR} [facility] Comment on above: Critical Value > 4.0 Whole blood prothrombin time Ordered By: Carlos Cavazos on 01-29-2023 PT Coag (Bld) [Time] 19.9 s 11.7-14.9 [facility] INR in Blood by Coagulation assayOrdered By: Carlos Cavazos on 01-26-2023 INR Coag (Bld) [Relative time] 1.5 {INR} [facility] - CoagulationOrde red By: Carlos Cavazos on 01-26-2023 PT Coag (PPP) [Time] 18.3 s 11.7-14.9 [facility] INR in Blood by Coagulation assayOrdered By: Carlos Cavazos on 01-24-2023 INR Coag (Bld) [Relative time] 1.3 {INR} [facility] - CoagulationOrde red By: Carlos Cavazos on 01-24-2023 PT Coag (PPP) [Time] 16.2 s 11.7-14.9 [facility] Basophil percentageOrdered B y: Carlos Cavazos on 01-22-2023 Basophil percentage 0 SEEN /hpf 0-5 [facility] Bilirubin Test strip Ql (U)O rdered By: Carlos Cavazos on 01-22-2023 Bilirubin Ql (U) Negative Negative [facility] Calcium oxalate crystals det ection in urine sediment by light microscopyOrdered By: Carlos Cavazos on 01-22-2023 Calcium oxalate crystals LM Ql (Urine sed) 1+ /hpf [facility] Culture, urineOrdered By: Sharif Crouch on 01-22-2023 Bacteria identified Cx Nom (U) Positive [facility] Ketones Test strip Ql (U)Ord ered By: Carlos Cavazos on 01-22-2023 Ketones Ql (U) Negative Negative [facility] Mucus LM Ql (Urine sed)Order ed By: Carlos Cavazos on 01-22-2023 Mucus Ql (Urine sed) 1+ /hpf [facility] Nitrite Test strip Ql (U)Ord ered By: Carlos Cavazos on 01-22-2023 Nitrite Ql (U) Negative Negative [facility] Protein Test strip Ql (U)Ord ered By: Carlos Cavazos on 01-22-2023 Protein Ql (U) Negative Negative [facility] Squamous epithelial cells de tection in urine sediment by light microscopyOrdered By: Carlos Cavazos on 01-22-2023 Epithelial cells.squamous LM Ql (Urine sed) 0 SEEN /hpf 0-5 [facility] Urine blood detectionOrdered By: Carlos Cavazos on 01-22-2023 RBC Ql (U) Negative Negative [facility] RBC Ql (U) 0 SEEN /hpf 0-5 [facility] Urine clarityOrdered By: Ted Cavazos on 01-22-2023 Clarity (U) Sl. Cloudy Clear [facility] Urine color determinationOrd ered By: Carlos Cavazos on 01-22-2023 Color (U) Yellow Yellow [facility] Urine glucose detectionOrder ed By: Carlos Cavazos on 01-22-2023 Glucose Ql (U) Normal mg/dl Normal [facility] Urine leukocyte esterase det ection by dipstickOrdered By: Carlos Cavazos on 01-22-2023 Leukocyte esterase Test strip Ql (U) Negative Negative [facility] Urine pHOrdered By: Carlos flores on 01-22-2023 pH (U) 5.0 [pH] 5.0 - 8.0 [facility] Urine sediment bacteria coun t by microscopy (number/high power field)Ordered By: Carlos Cavazos on 01-22-2023 Bacteria LM.HPF (Urine sed) [#/Area] 2 /[HPF] None Seen [facility] Urine specific gravity measu rementOrdered By: Carlos Cavazos on 01-22-2023 Specific gravity (U) [Rel density] 1.025 1.002-1.030 [facility] Urobilinogen Auto test strip Ql (U)Ordered By: Carlos Cavazos on 01-22-2023 Urobilinogen Ql (U) Normal mg/dl Normal [facility] INR in Blood by Coagulation assayOrdered By: Carlos Cavazos on 01-10-2023 INR Coag (Bld) [Relative time] 2.0 {INR} [facility] Laboratory - CoagulationOrde red By: Carlos Cavazos on 01-10-2023 PT Coag (PPP) [Time] 22.6 s 11.7-14.[address] [facility] INR in Blood by Coagulation assayOrdered By: Carlos Cavazos on 12-27-2022 INR Coag (Bld) [Relative time] 2.1 {INR} [facility] - CoagulationOrde red By: Carlos Cavazos on 12-27-2022 PT Coag (PPP) [Time] 24.1 s 11.7-14.9 [facility] INR in Blood by Coagulation assayOrdered By: Carlos Cavazos on 12-21-2022 INR Coag (Bld) [Relative time] 2.4 {INR} [facility] - CoagulationOrde red By: Carlos Cavazos on 12-21-2022 PT Coag (PPP) [Time] 26.7 s 11.7-14.9 [facility] Laboratory - CoagulationOrde red By: Carlos Cavazos on 12-14-2022 INR Coag (Bld) [Relative time] 2.3 {INR} [facility] Comment on above: Critical Value > 4.0 Whole blood prothrombin time Ordered By: Carlos Cavazos on 12-14-2022 PT Coag (Bld) [Time] 25.2 s 11.7-14.9 [facility] Laboratory - CoagulationOrde red By: Carlos Cavazos on 12-07-2022 INR Coag (Bld) [Relative time] 2.5 {INR} [facility] Comment on above: Critical Value > 4.0 Whole blood prothrombin time Ordered By: Carlos Cavazos on 12-07-2022 PT Coag (Bld) [Time] 26.9 s 11.7-14.9 [facility] Amorphous sediment detection in urine sediment by light microscopyOrdered By: Carlos Cavazos on 11-24-2022 Amorphous sediment LM Ql (Urine sed) 1+ [facility] Basophil percentageOrdered B y: Carlos Cavazos on 11-24-2022 Basophil percentage 0 SEEN /hpf 0-5 [facility] Bilirubin [Mass/Vol] 0.30 mg/dL 0.20-1.00 [facility] Comment on above: For patients on eltr ombopag therapy, use of Dimension Romayor TBIL is not recommended. Chloride [Moles/Vol] 107 mmol/L 98-107 [facility] Glucose [Mass/Vol] 95 mg/dL 74-106 [facility] Potassium [Moles/Vol] 4.2 mmol/L 3.5-5.1 [facility] Protein [Mass/Vol] 6.9 g/dL 6.4-8.2 [facility] Sodium [Moles/Vol] 138 mmol/L 136-145 [facility] WBC (Bld) [#/Vol] 10.4 10*3/uL 4.4-11.0 [facility] Bilirubin Test strip Ql (U)O rdered By: Carlos Cavazos on 11-24-2022 Bilirubin Ql (U) Negative Negative [facility] Blood erythrocytes count (nu mber/volume)Ordered By: Carlos Cavazos on 11-24-2022 RBC (Bld) [#/Vol] 4.44 10*6/uL 4.6-6.2 [facility] Blood hemoglobin measurement (mass/volume)Ordered By: Carlos Cavazos on 11-24-2022 Hemoglobin (Bld) [Mass/Vol] 11.8 g/dL 13.0-16.5 [facility] Blood platelet mean volumeOr dered By: Carlos Cavazos on 11-24-2022 Platelet mean volume (Bld) [Entitic vol] 9.7 fL 6.2-12.0 [facility] Calcium oxalate crystals det ection in urine sediment by light microscopyOrdered By: Carlos Cavazos on 11-24-2022 Calcium oxalate crystals LM Ql (Urine sed) RARE /hpf [facility] Culture, urineOrdered By: Sharif Crouch on 11-24-2022 Bacteria identified Cx Nom (U) Positive [facility] Determination of erythrocyte mean corpuscular volume (MCV)Ordered By: Carlos Cavazos on 11-24-2022 MCV (RBC) [Entitic vol] 84.7 fL 80-94 [facility] Hematocrit Auto (Bld) [Volum e fraction]Ordered By: Carlos Cavazos on 11-24-2022 Hematocrit (Bld) [Volume fraction] 37.6 % 40-54 [facility] Ketones Test strip Ql (U)Ord ered By: Carlos Cavazos on 11-24-2022 Ketones Ql (U) Negative Negative [facility] Laboratory - Chemistry and C hemistry - challengeOrdered By: Carlos Cavazos on 11-24-2022 ALP [Catalytic activity/Vol] 103 U/L 45-117 [facility] ALT [Catalytic activity/Vol] 14 U/L 16-61 [facility] CO2 [Moles/Vol] 26.0 mmol/L 21.0-32.0 [facility] Globulin (S) [Mass/Vol] 4.0 g/dL 2.2-4.2 [facility] Urea nitrogen/Creatinine [Mass ratio] 24.1 mg/mg 10-20 [facility] Laboratory - Hematology and Cell countsOrdered By: Carlos Cavazos on 11-24-2022 Erythrocyte distribution width (RBC) [Entitic vol] 49.4 fL 35.1-43.9 [facility] Erythrocyte distribution width (RBC) [Ratio] 16.0 % 11.6-14.6 [facility] MCH (RBC) [Entitic mass] 26.6 pg 27.0-32.0 [facility] MCHC Auto (RBC) [Mass/Vol]Or dered By: Carlos Cavazos on 11-24-2022 MCHC (RBC) [Mass/Vol] 31.4 g/dL 32-36 [facility] Mucus LM Ql (Urine sed)Order ed By: Carlos Cavazos on 11-24-2022 Mucus Ql (Urine sed) 0 SEEN /hpf [facility] Nitrite Test strip Ql (U)Ord ered By: Carlos Cavazos on 11-24-2022 Nitrite Ql (U) Negative Negative [facility] No Panel InformationOrdered By: Carlos Cavazos on 11-24-2022 Estimated GFR (MDRD) Amer 118 mL/min >60 [facility] Comment on above: GFR Calc Estimated GFR (MDRD) Non-Af Amer 97 mL/min >60 [facility] Comment on above: Non- GFR Calc Platelets bldOrdered By: Ted Cavazos on 11-24-2022 Platelets (Bld) [#/Vol] 309 10*3/uL 150-450 [facility] Protein Test strip Ql (U)Ord ered By: Carlos Cavazos on 11-24-2022 Protein Ql (U) Negative Negative [facility] Serum or plasma albumin oral urement (mass/volume)Ordered By: Carlos Cavazos on 11-24-2022 Albumin [Mass/Vol] 2.9 g/dL 3.2-5.0 [facility] Serum or plasma albumin/glob ulin mass ratioOrdered By: Carlos Cavazos on 11-24-2022 Albumin/Globulin [Mass ratio] 0.7 {ratio} 0.9-2.4 [facility] Serum or plasma calcium oral urement (mass/volume)Ordered By: Carlos Cavazos on 11-24-2022 Calcium [Mass/Vol] 8.7 mg/dL 8.5-10.1 [facility] Serum or plasma creatinine m easurement (mass/volume)Ordered By: Carlos Cavazos on 11-24-2022 Creatinine [Mass/Vol] 0.83 mg/dL 0.70-1.30 [facility] Comment on above: The validity of the calculated GFR & GFRAA in patients over 70 years has not been determined. Clinical correlation is essential. Serum or plasma urea nitroge n measurement (mass/volume)Ordered By: Carlos Cavazos on 11-24-2022 Urea nitrogen [Mass/Vol] 20 mg/dL 7-18 [facility] Squamous epithelial cells de tection in urine sediment by light microscopyOrdered By: Carlos Cavazos on 11-24-2022 Epithelial cells.squamous LM Ql (Urine sed) 0 SEEN /hpf 0-5 [facility] Thin prep Papanicolaou smear with manual screeningOrdered By: Carlos Cavazos on 11-24-2022 Thin prep Papanicolaou smear with manual screening 10 U/L 15-37 [facility] Thin prep Papanicolaou smear with manual screening 5 5-15 [facility] Urine blood detectionOrdered By: Carlos Cavazos on 11-24-2022 RBC Ql (U) Negative Negative [facility] RBC Ql (U) 0 SEEN /hpf 0-5 [facility] Urine clarityOrdered By: Ted Cavazos on 11-24-2022 Clarity (U) Clear Clear [facility] Urine color determinationOrd ered By: Carlos Cavazos on 11-24-2022 Color (U) Yellow Yellow [facility] Urine glucose detectionOrder ed By: Carlos Cavazos on 11-24-2022 Glucose Ql (U) Normal mg/dl Normal [facility] Urine leukocyte esterase det ection by dipstickOrdered By: Carlos Cavazos on 11-24-2022 Leukocyte esterase Test strip Ql (U) Negative Negative [facility] Urine pHOrdered By: Carlos flores on 11-24-2022 pH (U) 7.0 [pH] 5.0 - 8.0 [facility] Urine sediment bacteria coun t by microscopy (number/high power field)Ordered By: Carlos Cavazos on 11-24-2022 Bacteria LM.HPF (Urine sed) [#/Area] 0 /[HPF] None Seen [facility] Urine specific gravity measu rementOrdered By: Carlos Cavazos on 11-24-2022 Specific gravity (U) [Rel density] 1.010 1.002-1.030 [facility] Urobilinogen Auto test strip Ql (U)Ordered By: Carlos Cavazos on 11-24-2022 Urobilinogen Ql (U) Normal mg/dl Normal [facility] Laboratory - CoagulationOrde red By: Carlos Cavazos on 11-23-2022 INR Coag (Bld) [Relative time] 2.2 {INR} [facility] Comment on above: Critical Value > 4.0 Whole blood prothrombin time Ordered By: Carlos Cavazos on 11-23-2022 PT Coag (Bld) [Time] 24.5 s 11.7-14.9 [facility] Basophil percentageOrdered B y: Carlos Cavazos on 11-22-2022 Chloride [Moles/Vol] 105 mmol/L 98-107 [facility] Glucose [Mass/Vol] 91 mg/dL 74-106 [facility] Potassium [Moles/Vol] 4.1 mmol/L 3.5-5.1 [facility] Sodium [Moles/Vol] 138 mmol/L 136-145 [facility] WBC (Bld) [#/Vol] 12.0 10*3/uL 4.4-11.0 [facility] Blood erythrocytes count (nu mber/volume)Ordered By: Carlos Cavazos on 11-22-2022 RBC (Bld) [#/Vol] 4.65 10*6/uL 4.6-6.2 [facility] Blood hemoglobin measurement (mass/volume)Ordered By: Carlos Cavazos on 11-22-2022 Hemoglobin (Bld) [Mass/Vol] 12.4 g/dL 13.0-16.5 [facility] Blood platelet mean volumeOr dered By: Carlos Cavazos on 11-22-2022 Platelet mean volume (Bld) [Entitic vol] 10.3 fL 6.2-12.0 [facility] Determination of erythrocyte mean corpuscular volume (MCV)Ordered By: Carlos Cavazos on 11-22-2022 MCV (RBC) [Entitic vol] 86.0 fL 80-94 [facility] Hematocrit Auto (Bld) [Volum e fraction]Ordered By: Carlos Cavazos on 11-22-2022 Hematocrit (Bld) [Volume fraction] 40.0 % 40-54 [facility] Laboratory - Chemistry and C hemistry - challengeOrdered By: Carlos Cavazos on 11-22-2022 CO2 [Moles/Vol] 25.0 mmol/L 21.0-32.0 [facility] Urea nitrogen/Creatinine [Mass ratio] 23.6 mg/mg 10-20 [facility] Laboratory - Hematology and Cell countsOrdered By: Carlos Cavazos on 11-22-2022 Erythrocyte distribution width (RBC) [Entitic vol] 50.0 fL 35.1-43.9 [facility] Erythrocyte distribution width (RBC) [Ratio] 15.9 % 11.6-14.6 [facility] MCH (RBC) [Entitic mass] 26.7 pg 27.0-32.0 [facility] MCHC Auto (RBC) [Mass/Vol]Or dered By: Carlos Cavazos on 11-22-2022 MCHC (RBC) [Mass/Vol] 31.0 g/dL 32-36 [facility] No Panel InformationOrdered By: Carlos Cavazos on 11-22-2022 Estimated GFR (MDRD) Amer 115 mL/min >60 [facility] Comment on above: GFR Calc Estimated GFR (MDRD) Non-Af Amer 95 mL/min >60 [facility] Comment on above: Non- GFR Calc Platelets bldOrdered By: Ted Cavazos on 11-22-2022 Platelets (Bld) [#/Vol] 320 10*3/uL 150-450 [facility] Serum or plasma calcium oral urement (mass/volume)Ordered By: Carlos Cavazos on 11-22-2022 Calcium [Mass/Vol] 8.7 mg/dL 8.5-10.1 [facility] Serum or plasma creatinine m easurement (mass/volume)Ordered By: Carlos Cavazos on 11-22-2022 Creatinine [Mass/Vol] 0.85 mg/dL 0.70-1.30 [facility] Comment on above: The validity of the calculated GFR & GFRAA in patients over 70 years has not been determined. Clinical correlation is essential. Serum or plasma urea nitroge n measurement (mass/volume)Ordered By: Carlos Cavazos on 11-22-2022 Urea nitrogen [Mass/Vol] 20 mg/dL 7-18 [facility] Thin prep Papanicolaou smear with manual screeningOrdered By: Carlos Cavazos on 11-22-2022 Thin prep Papanicolaou smear with manual screening 8 5-15 [facility] Laboratory - CoagulationOrde red By: Carlos Cavazos on 11-09-2022 INR Coag (Bld) [Relative time] 2.1 {INR} [facility] Comment on above: Critical Value > 4.0 Whole blood prothrombin time Ordered By: Carlos Cavazos on 11-09-2022 PT Coag (Bld) [Time] 22.6 s 11.7-14.9 [facility] Laboratory - CoagulationOrde red By: Carlos Cavazos on 10-26-2022 INR Coag (Bld) [Relative time] 2.6 {INR} [facility] Comment on above: Critical Value > 4.0 Whole blood prothrombin time Ordered By: Carlos Cavazos on 10-26-2022 PT Coag (Bld) [Time] 28.5 s 11.7-14.9 [facility] Laboratory - CoagulationOrde red By: Carlos Cavazos on 10-12-2022 INR Coag (Bld) [Relative time] 2.4 {INR} [facility] Comment on above: Critical Value > 4.0 Whole blood prothrombin time Ordered By: Carlos Cavazos on 10-12-2022 PT Coag (Bld) [Time] 26.4 s 11.7-14.9 [facility] Laboratory - CoagulationOrde red By: Carlos Cavazos on 10-05-2022 INR Coag (Bld) [Relative time] 2.6 {INR} [facility] Comment on above: Critical Value > 4.0 Whole blood prothrombin time Ordered By: Carlos Cavazos on 10-05-2022 PT Coag (Bld) [Time] 28.0 s 11.7-14.9 [facility] Laboratory - CoagulationOrde red By: Carlos Cavazos on 09-28-2022 INR Coag (Bld) [Relative time] 2.7 {INR} [facility] Comment on above: Critical Value > 4.0 Whole blood prothrombin time Ordered By: Carlos Cavazos on 09-28-2022 PT Coag (Bld) [Time] 28.9 s 11.7-14.9 [facility] Laboratory - CoagulationOrde red By: Carlos Cavazos on 09-14-2022 INR Coag (Bld) [Relative time] 2.5 {INR} [facility] Comment on above: Critical Value > 4.0 Whole blood prothrombin time Ordered By: Carlos Cavazos on 09-14-2022 PT Coag (Bld) [Time] 27.4 s 11.7-14.9 [facility] Laboratory - CoagulationOrde red By: Carlos Cavazos on 08-31-2022 INR Coag (Bld) [Relative time] 2.3 {INR} [facility] Comment on above: Critical Value > 4.0 Whole blood prothrombin time Ordered By: Carlos Cavazos on 08-31-2022 PT Coag (Bld) [Time] 25.4 s 11.7-14.9 [facility] Basophil percentageOrdered B y: Carlos Cavazos on 08-23-2022 Chloride [Moles/Vol] 108 mmol/L 98-107 [facility] Glucose [Mass/Vol] 86 mg/dL 74-106 [facility] Potassium [Moles/Vol] 4.3 mmol/L 3.5-5.1 [facility] Sodium [Moles/Vol] 136 mmol/L 136-145 [facility] WBC (Bld) [#/Vol] 10.0 10*3/uL 4.4-11.0 [facility] Blood erythrocytes count (nu mber/volume)Ordered By: Carlos Cavazos on 08-23-2022 RBC (Bld) [#/Vol] 4.77 10*6/uL 4.6-6.2 [facility] Blood hemoglobin measurement (mass/volume)Ordered By: Carlos Cavazos on 08-23-2022 Hemoglobin (Bld) [Mass/Vol] 12.5 g/dL 13.0-16.5 [facility] Blood platelet mean volumeOr dered By: Carlos Cavazos on 08-23-2022 Platelet mean volume (Bld) [Entitic vol] 11.0 fL 6.2-12.0 [facility] Determination of erythrocyte mean corpuscular volume (MCV)Ordered By: Carlos Cavazos on 08-23-2022 MCV (RBC) [Entitic vol] 84.3 fL 80-94 [facility] Hematocrit Auto (Bld) [Volum e fraction]Ordered By: Carlos Cavazos on 08-23-2022 Hematocrit (Bld) [Volume fraction] 40.2 % 40-54 [facility] Laboratory - Chemistry and C hemistry - challengeOrdered By: Carlos Cavazos on 08-23-2022 CO2 [Moles/Vol] 24.0 mmol/L 21.0-32.0 [facility] Urea nitrogen/Creatinine [Mass ratio] 22.8 mg/mg 10-20 [facility] Laboratory - Hematology and Cell countsOrdered By: Carlos Cavazos on 08-23-2022 Erythrocyte distribution width (RBC) [Entitic vol] 49.3 fL 35.1-43.9 [facility] Erythrocyte distribution width (RBC) [Ratio] 16.0 % 11.6-14.6 [facility] MCH (RBC) [Entitic mass] 26.2 pg 27.0-32.0 [facility] MCHC Auto (RBC) [Mass/Vol]Or dered By: Carlos Cavazos on 08-23-2022 MCHC (RBC) [Mass/Vol] 31.1 g/dL 32-36 [facility] No Panel InformationOrdered By: Carlos Cavazos on 08-23-2022 Estimated GFR (MDRD) Amer 134 mL/min >60 [facility] Comment on above: GFR Calc Estimated GFR (MDRD) Non-Af Amer 110 mL/min >60 [facility] Comment on above: Non- GFR Calc Platelets bldOrdered By: Ted Cavazos on 08-23-2022 Platelets (Bld) [#/Vol] 268 10*3/uL 150-450 [facility] Serum or plasma calcium oral urement (mass/volume)Ordered By: Carlos Cavazos on 08-23-2022 Calcium [Mass/Vol] 9.1 mg/dL 8.5-10.1 [facility] Serum or plasma creatinine m easurement (mass/volume)Ordered By: Carlos Cavazos on 08-23-2022 Creatinine [Mass/Vol] 0.74 mg/dL 0.70-1.30 [facility] Comment on above: The validity of the calculated GFR & GFRAA in patients over 70 years has not been determined. Clinical correlation is essential. Serum or plasma urea nitroge n measurement (mass/volume)Ordered By: Carlos Cavazos on 08-23-2022 Urea nitrogen [Mass/Vol] 17 mg/dL 7-18 [facility] Thin prep Papanicolaou smear with manual screeningOrdered By: Carlos Cavazos on 08-23-2022 Thin prep Papanicolaou smear with manual screening 4 5-15 [facility] Laboratory - CoagulationOrde red By: Carlos Cavazos on 08-17-2022 INR Coag (Bld) [Relative time] 2.8 {INR} [facility] Comment on above: Critical Value > 4.0 Whole blood prothrombin time Ordered By: Carlos Cavazos on 08-17-2022 PT Coag (Bld) [Time] 29.6 s 11.7-14.9 [facility] Laboratory - CoagulationOrde red By: Carlos Cavazos on 08-14-2022 INR Coag (Bld) [Relative time] 3.9 {INR} [facility] Comment on above: Critical Value > 4.0 Whole blood prothrombin time Ordered By: Carlos Cavazos on 08-14-2022 PT Coag (Bld) [Time] 40.6 s 11.7-14.9 [facility] Laboratory - CoagulationOrde red By: Carlos Cavazos on 07-31-2022 INR Coag (Bld) [Relative time] 2.5 {INR} [facility] Comment on above: Critical Value > 4.0 Whole blood prothrombin time Ordered By: Carlos Cavazos on 07-31-2022 PT Coag (Bld) [Time] 26.8 s 11.7-14.9 [facility] INR in Blood by Coagulation assayOrdered By: Carlos Cavazos on 07-24-2022 INR Coag (Bld) [Relative time] 2.3 {INR} [facility] Laboratory - CoagulationOrde red By: Carlos Cavazos on 07-24-2022 PT Coag (PPP) [Time] 24.7 s 11.7-14.9 [facility] Laboratory - CoagulationOrde red By: Carlos Cavazos on 07-20-2022 INR Coag (Bld) [Relative time] 1.9 {INR} [facility] Comment on above: Critical Value > 4.0 Whole blood prothrombin time Ordered By: Carlos Cavazos on 07-20-2022 PT Coag (Bld) [Time] 20.6 s 11.7-14.9 [facility] Laboratory - CoagulationOrde red By: Carlos Cavazos on 07-17-2022 INR Coag (Bld) [Relative time] 1.3 {INR} [facility] Comment on above: Critical Value > 4.0 Whole blood prothrombin time Ordered By: Carlos Cavazos on 07-17-2022 PT Coag (Bld) [Time] 15.9 s 11.7-14.9 [facility] Basophil percentageOrdered B y: Carlos Cavazos on 07-11-2022 Chloride [Moles/Vol] 105 mmol/L 98-107 [facility] Glucose [Mass/Vol] 97 mg/dL 74-106 [facility] Potassium [Moles/Vol] 3.9 mmol/L 3.5-5.1 [facility] Sodium [Moles/Vol] 140 mmol/L 136-145 [facility] WBC (Bld) [#/Vol] 9.4 10*3/uL 4.4-11.0 [facility] Blood erythrocytes count (nu mber/volume)Ordered By: Carlos Cavazos on 07-11-2022 RBC (Bld) [#/Vol] 4.66 10*6/uL 4.6-6.2 [facility] Blood hemoglobin measurement (mass/volume)Ordered By: Carlos Cavazos on 07-11-2022 Hemoglobin (Bld) [Mass/Vol] 12.0 g/dL 13.0-16.5 [facility] Blood platelet mean volumeOr dered By: Carlos Cavazos on 07-11-2022 Platelet mean volume (Bld) [Entitic vol] 10.4 fL 6.2-12.0 [facility] Determination of erythrocyte mean corpuscular volume (MCV)Ordered By: Carlos Cavazos on 07-11-2022 MCV (RBC) [Entitic vol] 83.7 fL 80-94 [facility] Hematocrit Auto (Bld) [Volum e fraction]Ordered By: Carlos Cavazos on 07-11-2022 Hematocrit (Bld) [Volume fraction] 39.0 % 40-54 [facility] Laboratory - Chemistry and C hemistry - challengeOrdered By: Carlos Cavazos on 07-11-2022 CO2 [Moles/Vol] 28.0 mmol/L 21.0-32.0 [facility] Urea nitrogen/Creatinine [Mass ratio] 23.0 mg/mg 10-20 [facility] Laboratory - Hematology and Cell countsOrdered By: Carlos Cavazos on 07-11-2022 Erythrocyte distribution width (RBC) [Entitic vol] 51.0 fL 35.1-43.9 [facility] Erythrocyte distribution width (RBC) [Ratio] 16.8 % 11.6-14.6 [facility] MCH (RBC) [Entitic mass] 25.8 pg 27.0-32.0 [facility] MCHC Auto (RBC) [Mass/Vol]Or dered By: Carlos Cavazos on 07-11-2022 MCHC (RBC) [Mass/Vol] 30.8 g/dL 32-36 [facility] No Panel InformationOrdered By: Carlos Cavazos on 07-11-2022 Estimated GFR (MDRD) Amer 126 mL/min >60 [facility] Comment on above: GFR Calc Estimated GFR (MDRD) Non-Af Amer 104 mL/min >60 [facility] Comment on above: Non- GFR Calc Platelets bldOrdered By: Ted Cavazos on 07-11-2022 Platelets (Bld) [#/Vol] 291 10*3/uL 150-450 [facility] Serum or plasma calcium oral urement (mass/volume)Ordered By: Carlos Cavazos on 07-11-2022 Calcium [Mass/Vol] 9.2 mg/dL 8.5-10.1 [facility] Serum or plasma creatinine m easurement (mass/volume)Ordered By: Carlos Cavazos on 07-11-2022 Creatinine [Mass/Vol] 0.78 mg/dL 0.70-1.30 [facility] Comment on above: The validity of the calculated GFR & GFRAA in patients over 70 years has not been determined. Clinical correlation is essential. Serum or plasma urea nitroge n measurement (mass/volume)Ordered By: Carlos Cavazos on 07-11-2022 Urea nitrogen [Mass/Vol] 18 mg/dL 7-18 [facility] Thin prep Papanicolaou smear with manual screeningOrdered By: Carlos Cavazos on 07-11-2022 Thin prep Papanicolaou smear with manual screening 7 5-15 [facility] Laboratory - CoagulationOrde red By: Carlos Cavazos on 07-10-2022 INR Coag (Bld) [Relative time] 1.8 {INR} [facility] Comment on above: Critical Value > 4.0 Whole blood prothrombin time Ordered By: Carlos Cavazos on 07-10-2022 PT Coag (Bld) [Time] 21.0 s 11.7-14.9 [facility] Laboratory - CoagulationOrde red By: Carlos Cavazos on 07-03-2022 INR Coag (Bld) [Relative time] 1.9 {INR} [facility] Comment on above: Critical Value > 4.0 Whole blood prothrombin time Ordered By: Carlos Cavazos on 07-03-2022 PT Coag (Bld) [Time] 22.7 s 11.7-14.9 [facility] INR in Blood by Coagulation assayOrdered By: Carlos Cavazos on 06-27-2022 INR Coag (Bld) [Relative time] 2.9 {INR} [facility] Laboratory - CoagulationOrde red By: Carlos Cavazos on 06-27-2022 PT Coag (PPP) [Time] 29.9 s 11.7-14.9 [facility] Laboratory - CoagulationOrde red By: Carlos Cavazos on 06-13-2022 INR Coag (Bld) [Relative time] 2.1 {INR} [facility] Comment on above: Critical Value > 4.0 Whole blood prothrombin time Ordered By: Carlos Cavazos on 06-13-2022 PT Coag (Bld) [Time] 24.4 s 11.7-14.9 [facility] Laboratory - CoagulationOrde red By: Carlos Cavazos on 06-06-2022 INR Coag (Bld) [Relative time] 1.5 {INR} [facility] Comment on above: Critical Value > 4.0 Whole blood prothrombin time Ordered By: Carlos Cavazos on 06-06-2022 PT Coag (Bld) [Time] 18.4 s 11.7-14.9 [facility] Basophil percentageOrdered B y: Carlos Cavazos on 05-30-2022 Chloride [Moles/Vol] 105 mmol/L 98-107 [facility] Glucose [Mass/Vol] 95 mg/dL 74-106 [facility] Potassium [Moles/Vol] 3.9 mmol/L 3.5-5.1 [facility] Sodium [Moles/Vol] 140 mmol/L 136-145 [facility] WBC (Bld) [#/Vol] 7.6 10*3/uL 4.4-11.0 [facility] Blood erythrocytes count (nu mber/volume)Ordered By: Carlos Cavazos on 05-30-2022 RBC (Bld) [#/Vol] 4.79 10*6/uL 4.6-6.2 [facility] Blood hemoglobin measurement (mass/volume)Ordered By: Carlos Cavazos on 05-30-2022 Hemoglobin (Bld) [Mass/Vol] 12.1 g/dL 13.0-16.5 [facility] Blood platelet mean volumeOr dered By: Carlos Cavazos on 05-30-2022 Platelet mean volume (Bld) [Entitic vol] 10.4 fL 6.2-12.0 [facility] Determination of erythrocyte mean corpuscular volume (MCV)Ordered By: Carlos Cavazos on 05-30-2022 MCV (RBC) [Entitic vol] 82.5 fL 80-94 [facility] Hematocrit Auto (Bld) [Volum e fraction]Ordered By: Carlos Cavazos on 05-30-2022 Hematocrit (Bld) [Volume fraction] 39.5 % 40-54 [facility] INR in Blood by Coagulation assayOrdered By: Carlos Cavazos on 05-30-2022 INR Coag (Bld) [Relative time] 1.9 {INR} [facility] Laboratory - Chemistry and C hemistry - challengeOrdered By: Carlos Cavazos on 05-30-2022 CO2 [Moles/Vol] 27.0 mmol/L 21.0-32.0 [facility] Urea nitrogen/Creatinine [Mass ratio] 21.4 mg/mg 10-20 [facility] Laboratory - CoagulationOrde red By: Carlos Cavazos on 05-30-2022 PT Coag (PPP) [Time] 21.6 s 11.7-14.9 [facility] Laboratory - Hematology and Cell countsOrdered By: Carlos Cavazos on 05-30-2022 Erythrocyte distribution width (RBC) [Entitic vol] 48.8 fL 35.1-43.9 [facility] Erythrocyte distribution width (RBC) [Ratio] 16.2 % 11.6-14.6 [facility] MCH (RBC) [Entitic mass] 25.3 pg 27.0-32.0 [facility] MCHC Auto (RBC) [Mass/Vol]Or dered By: Carlos Cavazos on 05-30-2022 MCHC (RBC) [Mass/Vol] 30.6 g/dL 32-36 [facility] No Panel InformationOrdered By: Carlos Cavazos on 05-30-2022 Estimated GFR (MDRD) Amer 133 mL/min >60 [facility] Comment on above: GFR Calc Estimated GFR (MDRD) Non-Af Amer 110 mL/min >60 [facility] Comment on above: Non- GFR Calc Platelets bldOrdered By: Pet noe Kenny on 05-30-2022 Platelets (Bld) [#/Vol] 308 10*3/uL 150-450 [facility] Serum or plasma calcium oral urement (mass/volume)Ordered By: Carlos Cavazos on 05-30-2022 Calcium [Mass/Vol] 9.1 mg/dL 8.5-10.1 [facility] Serum or plasma creatinine m easurement (mass/volume)Ordered By: Carlos Cavazos on 05-30-2022 Creatinine [Mass/Vol] 0.75 mg/dL 0.70-1.30 [facility] Comment on above: The validity of the calculated GFR & GFRAA in patients over 70 years has not been determined. Clinical correlation is essential. Serum or plasma urea nitroge n measurement (mass/volume)Ordered By: Carlos Cavazos on 05-30-2022 Urea nitrogen [Mass/Vol] 16 mg/dL 7-18 [facility] Thin prep Papanicolaou smear with manual screeningOrdered By: Carlos Cavazos on 05-30-2022 Thin prep Papanicolaou smear with manual screening 8 5-15 [facility] Laboratory - CoagulationOrde red By: Carlos Cavazos on 05-16-2022 INR Coag (Bld) [Relative time] 2.6 {INR} [facility] Comment on above: Critical Value > 4.0 Whole blood prothrombin time Ordered By: Carlos Cavazos on 05-16-2022 PT Coag (Bld) [Time] 29.9 s 11.7-14.9 [facility] Laboratory - CoagulationOrde red By: Carlos Cavazos on 05-02-2022 INR Coag (Bld) [Relative time] 2.0 {INR} [facility] Comment on above: Critical Value > 4.0 Whole blood prothrombin time Ordered By: Carlos Cavazos on 05-02-2022 PT Coag (Bld) [Time] 23.2 s 11.7-14.9 [facility] Laboratory - CoagulationOrde red By: Carlos Cavazos on 04-27-2022 INR Coag (Bld) [Relative time] 2.7 {INR} [facility] Comment on above: Critical Value > 4.0 Whole blood prothrombin time Ordered By: Carlos Cavazos on 04-27-2022 PT Coag (Bld) [Time] 31.1 s 11.7-14.9 [facility] Laboratory - CoagulationOrde red By: Carlos Cavazos on 04-26-2022 INR Coag (Bld) [Relative time] 2.8 {INR} [facility] Comment on above: Critical Value > 4.0 Whole blood prothrombin time Ordered By: Carlos Cavazos on 04-26-2022 PT Coag (Bld) [Time] 32.6 s 11.7-14.9 [facility] Laboratory - CoagulationOrde red By: Carlos Cavazos on 04-11-2022 INR Coag (Bld) [Relative time] 2.9 {INR} [facility] Comment on above: Critical Value > 4.0 Whole blood prothrombin time Ordered By: Carlos Cavazos on 04-11-2022 PT Coag (Bld) [Time] 32.8 s 11.7-14.9 [facility] Laboratory - CoagulationOrde red By: Carlos Cavazos on 03-28-2022 INR Coag (Bld) [Relative time] 2.1 {INR} [facility] Comment on above: Critical Value > 4.0 Whole blood prothrombin time Ordered By: Carlos Cavazos on 03-28-2022 PT Coag (Bld) [Time] 24.8 s 11.7-14.9 [facility] Laboratory - CoagulationOrde red By: Carlos Cavazos on 03-23-2022 INR Coag (Bld) [Relative time] 1.7 {INR} [facility] Comment on above: Critical Value > 4.0 Whole blood prothrombin time Ordered By: Carlos Cavazos on 03-23-2022 PT Coag (Bld) [Time] 20.9 s 11.7-14.9 [facility] Laboratory - CoagulationOrde red By: Carlos Cavazos on 03-16-2022 INR Coag (Bld) [Relative time] 1.7 {INR} [facility] Comment on above: Critical Value > 4.0 Whole blood prothrombin time Ordered By: Carlos Cavazos on 03-16-2022 PT Coag (Bld) [Time] 19.9 s 11.7-14.9 [facility] Laboratory - CoagulationOrde red By: Carlos Cavazos on 03-09-2022 INR Coag (Bld) [Relative time] 1.8 {INR} [facility] Comment on above: Critical Value > 4.0 Whole blood prothrombin time Ordered By: Carlos Cavazos on 03-09-2022 PT Coag (Bld) [Time] 21.9 s 11.7-14.9 [facility] Laboratory - CoagulationOrde red By: Carlos Cavazos on 03-06-2022 INR Coag (Bld) [Relative time] 1.7 {INR} [facility] Comment on above: Critical Value > 4.0 Whole blood prothrombin time Ordered By: Carlos Cavazos on 03-06-2022 PT Coag (Bld) [Time] 20.0 s 11.7-14.9 [facility] CBC with Auto Differentialon 03-02-2022 Absolute [...] - 10.7 10*3/uL [facility] Test Performed by [facility], [address] [place] [address] [facility]AST[facility] Patient Name: ANDREW SIFUENTES Computed Tomography ACCESSION EXAM DATE/TIME PROCEDURE ORDERING PROVIDER [id number] 03/02/2022 13:[address] Head or Brain w/o [id number] -LANETTE MUNGUIA Contrast CPT code 96542 Reason For Exam (CT Head or Brain [...] tubes (parent active on the left for [employer] shunting and disconnected on the right). 2. No definite evidence of acute infarction (MRI more sensitive), mass lesion, nor hemorrhage. Report Dictated on --- Final --- Dictated: 03/02/2022 1:35 pm Dictating Physician: MD GUTIERREZ WILLIAM Signed Date and Time: 03/02/2022 1:39 pm Signed by: MD GUTIERREZ WILLIAM Transcribed Date and Time: 03/02/2022 1:35 [facility] Anant Gutierrez MD - 03/02/2022 [id number] Comput[facility] Tomography ACCESSION EXAM DATE/TIME PROCEDURE ORDERING PROVIDER [id number] 03/02/2022 13:[address] Head or Brain w/o [id number] -LANETTE MUNGUIA Contrast CPT code 14389 Reason For Exam (CT Head or Brain [...] tubes (parent active on the left for [employer]NE[employer] shunting and disconnected on the right). 2. [...] Tomography ACCESSION EXAM DATE/TIME PROCEDURE ORDERING PROVIDER [id number] 03/02/2022 13:[address] Head or Brain w/o [id number] -LANETTE MUNGUIA Contrast CPT code 26483 Reason For Exam (CT Head or Brain [...] tubes (parent active on the left for DRI[employer] OPER[employer] PNEUM[employer]IC shunting and disconnected on the right). 2. No definite evidence of acute infarction (MRI more sensitive), mass lesion, nor hemorrhage. Report Dictated on Final Dictated: 03/02/2022 1:35 pm Dictating Physician: MD GUTIERREZ WILLIAM Signed Date and Time: 03/02/2022 1:39 pm Signed by: MD GUTIERREZ WILLIAM Transcribed Date and Time: 03/02/2022 1:35 Normal [facility] Comp Metabolic Panelon 03-02 Calcium [Mass/Vol] 9.1 mg/dL Normal 8.4-10.4 [facility] Comment on above: Performed By: #### H EMDF PT, CMP3 ####[id number] [place], [place] ALP [Catalytic activity/Vol] 128 U/L High 38-126 [facility] Comment on above: Performed By: #### H BIMALF PT, CMP3 ####[id number] [place], [place] ALT [Catalytic activity/Vol] 12 U/L Normal 0-49 [facility] Comment on above: Result Comment: The ALT test is performed by an updated assay method. Please note that the reference intervals have been changed and are now sex specific. Performed By: #### H EMDF PT, CMP3 ####[id number] [place], [place] Anion gap [Moles/Vol] 7 mmol/L Normal 3-13 [facility] Comment on above: Performed By: #### H EMDF PT, CMP3 ####[id number] [place], [place] AST [Catalytic activity/Vol] 24 U/L Normal 15-46 [facility] Comment on above: Performed By: #### H EMDF PT, CMP3 ####[id number] [place], [place] Bilirubin [Mass/Vol] 0.4 mg/dL Normal 0.2-1.3 [facility] Comment on above: Performed By: #### H EMDF PT, CMP3 ####[id number] [place], [place] CO2 [Moles/Vol] 27 mmol/L Normal 22-30 [facility] Comment on above: Performed By: #### H CHRISTEL MOTT CMP3 ####[facility] [place], [place] Glucose [Mass/Vol] 109 mg/dL High 70-100 [facility] Comment on above: Performed By: #### H CHRISTEL MOTT CMP3 ####[facility] [place], [place] Protein [Mass/Vol] 8.1 g/dL Normal 6.3-8.2 [facility] Comment on above: Performed By: #### H CHRISTEL MOTT CMP3 ####[address] [place], [place] Urea nitrogen [Mass/Vol] 22 mg/dL High 7-17 [facility] Comment on above: Performed By: #### H CHRISTEL MOTT CMP3 ####[facility], [place] Creatinine [Mass/Vol] 0.63 mg/dL Normal 0.52-1.25 [facility] Comment on above: Performed By: #### H CHRISTEL MOTT CMP3 ####[address] [place], [place] eGFR OTHER > 90.0 Normal >60 [facility] Comment on above: Result Comment: KDIG [...] Performed By: #### H CHRISTEL MOTT CMP3 ####[address] [place], [place] GFR/1.73 sq M.predicted among blacks MDRD (S/P/Bld) [Vol rate/Area] mL/min/{1.73_m2} Normal >60 [facility] Comment on above: Performed By: #### H CHRISTEL MOTT CMP3 ####[address] Albumin [Mass/Vol] 4.1 g/dL Normal 3.5-5.0 [facility] Comment on above: Performed By: #### H CHRISTEL MOTT CMP3 ####[address] Chloride [Moles/Vol] 106 mmol/L Normal 98-107 [facility] Comment on above: Performed By: #### H CHRISTEL MOTT CMP3 ####[address] Potassium [Moles/Vol] 3.7 mmol/L Normal 3.5-5.1 [facility] Comment on above: Performed By: #### H CHRISTEL MOTT CMP3 ####[address] Sodium [Moles/Vol] 140 mmol/L Normal 135-145 [facility] Comment on above: Performed By: #### H CHRISTEL MOTT CMP3 ####[address] Comprehensive Metabolic Pane kiel 03-02-2022 Albumin [Mass/Vol] 4.1 g/dL 3.5 - 5.0 g/dL [facility] ALP (Bld) [Catalytic activity/Vol] 128 U/L High 38 - 126 U/L [facility] ALT [Catalytic activity/Vol] 12 U/L 0 - 49 U/L [facility] Comment on above: The ALT test [...] P INF mL/min [facility] EGFR IF NonAfrican Bruneian mL/min 60 - PINF mL/min [facility] Comment [...] - 17 mg/dL [facility] Test Performed by [facility], [address] [place] [id number] [facility] ED Provider Noteon 2 ED Provider Note [facility] EMERGENCY DEPARTMENT ENCOUNTER Pt Name: Andrew Sifuentes Birthdate 1950 Date of evaluation: 03/02/2022 Provider: Lanette Munguia DO CHIEF COMPLAINT Chief Complaint Patient presents with Fall Patient had unwitnessed fall at [facility] landed on butt. Is on thinners, denies LOC, denies head injury has no complaints at this time HISTORY OF PRESENT ILLNESS (Location/Symptom, Timing/Onset, Context/Setting, Quality, Duration, Modifying Factors, Severity) Note limiting factors. I wore a N-95 mask for the entirety of this encounter. Andrew Sifuentes is a 71 y.o. male medical history of hydrocephalus status post DRILL OPERATOR PNEUMATIC shunt, history of DVT on Coumadin who presents to the emergency department from [facility] for evaluation following mechanical fall. Patient [...] Hemorrhoids Hydrocephalus, adult (HCC) Kidney stone Neuropathy DRILL OPERATOR PNEUMATIC (ventriculoperitoneal) shunt status SURGICAL HISTORY Past Surgical [...] CONTRAST R (more content not included)... Normal [facility] Hemogram w/ Autodiffon 03-02 Abs Baso Cnt 0.2 10*3/uL Normal 0.0-0.2 [facility] Comment on above: Performed By: #### H EMDF, PT, CMP3 ####[facility] [place] [address] Abs Neutrophile Cnt 10.7 10*3/uL High 1.8-7.0 [facility] Comment on above: Performed By: #### H EMDF, PT, CMP3 ####[facility] [id number] [place] [address] Basophils/100 WBC (Bld) 1.1 % Normal 0.0-2.0 [facility] Comment on above: Performed By: #### H EMDF, PT, CMP3 ####[address] [place] [address] Eosinophils (Bld) [#/Vol] 0.1 10*3/uL Normal 0.0-0.5 [facility] Comment on above: Performed By: #### H EMDF, PT, CMP3 ####[facility] [place] [address] Eosinophils/100 WBC (Bld) 0.5 % Low 1.0-6.0 [facility] Comment on above: Performed By: #### H EMDF, PT, CMP3 ####[address] [place] [address] Granulocytes/100 WBC (Bld) 73.9 % Normal 40.0-80.0 [facility] Comment on above: Performed By: #### H EMDF PT, CMP3 ####[address] [place], [place] Lymphocytes (Bld) [#/Vol] 3.0 10*3/uL Normal 1.0-4.3 [facility] Comment on above: Performed By: #### H EMDF PT, CMP3 ####[address] Lymphocytes/100 WBC (Bld) 20.6 % Normal 20.0-40.0 [facility] Comment on above: Performed By: #### H TIERA PT, CMP3 ####[address] Monocytes (Bld) [#/Vol] 0.6 10*3/uL Normal 0.0-0.8 [facility] Comment on above: Performed By: #### H EMDHeydi PT, CMP3 ####[address] Monocytes/100 WBC (Bld) 3.9 % Normal 2.0-10.0 [facility] Comment on above: Performed By: #### H TIERA PT, CMP3 ####[address] Platelet mean volume (Bld) [Entitic vol] 8.5 fL Normal 7.4-12.4 [facility] Comment on above: Result Comment: MPV is a calculated measurement using platelet volume ratio. Performed By: #### H EMDF PT, CMP3 ####[address] Platelets (Bld) [#/Vol] 411 10*3/uL Normal 140-440 [facility] Comment on above: Performed By: #### H EMDF PT, CMP3 ####[address] Erythrocyte distribution width (RBC) [Ratio] 17.0 % High 11.5-14.5 [facility] Comment on above: Performed By: #### H TIERA PT, CMP3 ####[address] Hematocrit (Bld) [Volume fraction] 37.4 % Low 40.0-52.0 [facility] Comment on above: Performed By: #### H TIERA PT, CMP3 ####[address] Hemoglobin (Bld) [Mass/Vol] 12.1 g/dL Low 13.0-18.0 [facility] Comment on above: Performed By: #### H TIERA PT, CMP3 ####[address] MCH (RBC) [Entitic mass] 26.2 pg Normal 26.0-34.0 [facility] Comment on above: Performed By: #### H TIERA PT, CMP3 ####[address] MCHC 32.3 % Normal 32.0-36.0 [facility] Comment on above: Performed By: #### H TIERA PT, CMP3 ####[address] MCV (RBC) [Entitic vol] 81.1 fL Normal 80.0-98.0 [facility] Comment on above: Performed By: #### H TIERA PT, CMP3 ####[address] RBC (Bld) [#/Vol] 4.61 10*6/uL Normal 4.40-5.90 [facility] Comment on above: Performed By: #### H EMDHeydi PT, CMP3 ####[address] WBC (Bld) [#/Vol] 14.5 10*3/uL High 3.6-10.7 [facility] Comment on above: Performed By: #### H EMDHeydi PT, CMP3 ####[address] [place] [address] Prothrombin Timeon INR 1.9 High 0.9-1.1 [facility] Comment on above: Result Comment: Harry [...] #### H EMDF, PT, CMP3 ####[address] [place], [place] PT Coag (PPP) [Time] 18.9 s High 9.0-12.0 [facility] Comment on above: Result Comment: . Performed By: #### H EMDF, PT, CMP3 ####[address] [place], [place] Protime-INRon 03-02-2022 INR Coag (Bld) [Relative time] 1.9 {INR} High [facility] Comment on above: Recommended Anticoag [...] Interpretation and review of laboratory results Abnormal [facility] PT Coag (PPP) [Time] 18.9 s High 9.0 - 12.0 s [facility] Comment on above: . Test Performed by [facility], [address] [place] [address] [facility] Laboratory - CoagulationOrde red By: Carlos Cavazos on 02-20-2022 INR Coag (Bld) [Relative time] 2.6 {INR} [facility] Comment on above: Critical Value > 4.0 Whole blood prothrombin time Ordered By: Carlos Cavazos on 02-20-2022 PT Coag (Bld) [Time] 30.1 s 11.7-14.9 [facility] Laboratory - CoagulationOrde red By: Carlos Cavazos on 02-13-2022 INR Coag (Bld) [Relative time] 2.3 {INR} [facility] Comment on above: Critical Value > 4.0 Whole blood prothrombin time Ordered By: Carlos Cavazos on 02-13-2022 PT Coag (Bld) [Time] 26.7 s 11.7-14.9 [facility] Laboratory - CoagulationOrde red By: Carlos Cavazos on 02-06-2022 INR Coag (Bld) [Relative time] 2.3 {INR} [facility] Comment on above: Critical Value > 4.0 Whole blood prothrombin time Ordered By: Carlos Cavazos on 02-06-2022 PT Coag (Bld) [Time] 26.6 s 11.7-14.9 [facility] Laboratory - Coagulationon 0 01-30-2022 INR Coag (Bld) [Relative time] 1.7 {INR} [facility] Work Phone: Comment on above: Critical Value > 4.0 Whole blood prothrombin time on 01-30-2022 PT Coag (Bld) [Time] 20.1 s 11.7-14.9 [facility] Work Phone: Laboratory - Coagulationon 0 01-26-2022 INR Coag (Bld) [Relative time] 1.8 {INR} [facility] Work Phone: Comment on above: Critical Value > 4.0 Whole blood prothrombin time on 01-26-2022 PT Coag (Bld) [Time] 21.8 s 11.7-14.9 [facility] Work Phone: Laboratory - Coagulationon 0 01-19-2022 INR Coag (Bld) [Relative time] 2.2 {INR} [facility] Work Phone: Comment on above: Critical Value > 4.0 Whole blood prothrombin time on 01-19-2022 PT Coag (Bld) [Time] 25.7 s 11.7-14.9 [facility] Work Phone: INR in Blood by Coagulation assayon 01-10-2022 INR Coag (Bld) [Relative time] 1.8 {INR} [facility] Work Phone: Laboratory - Coagulationon 0 01-10-2022 PT Coag (PPP) [Time] 20.9 s 11.7-14.9 [facility] Work Phone: Basophil percentageon 2021 Chloride [Moles/Vol] 107 mmol/L 98-107 [facility] Work Phone: Glucose [Mass/Vol] 82 mg/dL 74-106 [facility] Work Phone: Potassium [Moles/Vol] 3.4 mmol/L 3.5-5.1 [facility] Work Phone: Sodium [Moles/Vol] 143 mmol/L 136-145 [facility] Work Phone: WBC (Bld) [#/Vol] 10.4 10*3/uL 4.4-11.0 [facility] Work Phone: Blood erythrocytes count (nu mber/volume)on 01-05-2022 RBC (Bld) [#/Vol] 4.27 10*6/uL 4.6-6.2 [facility] Work Phone: Blood hemoglobin measurement (mass/volume)on 01-05-2022 Hemoglobin (Bld) [Mass/Vol] 11.2 g/dL 13.0-16.5 [facility] Work Phone: Blood platelet mean volumeon 01-05-2022 Platelet mean volume (Bld) [Entitic vol] 10.3 fL 6.2-12.0 [facility] Work Phone: Determination of erythrocyte mean corpuscular volume (MCV)on 01-05-2022 MCV (RBC) [Entitic vol] 84.8 fL 80-94 [facility] Work Phone: Hematocrit Auto (Bld) [Volum e fraction]on 01-05-2022 Hematocrit (Bld) [Volume fraction] 36.2 % 40-54 [facility] Work Phone: Laboratory - Chemistry and C hemistry - challengeon 01-05-2022 CO2 [Moles/Vol] 28.0 mmol/L 21.0-32.0 [facility] Work Phone: Urea nitrogen/Creatinine [Mass ratio] 20.0 mg/mg 10-20 [facility] Work Phone: Laboratory - Hematology and Cell countson 01-05-2022 Erythrocyte distribution width (RBC) [Entitic vol] 51.8 fL 35.1-43.9 [facility] Work Phone: Erythrocyte distribution width (RBC) [Ratio] 16.8 % 11.6-14.6 [facility] Work Phone: MCH (RBC) [Entitic mass] 26.2 pg 27.0-32.0 [facility] Work Phone: MCHC Auto (RBC) [Mass/Vol]on 01-05-2022 MCHC (RBC) [Mass/Vol] 30.9 g/dL 32-36 [facility] Work Phone: No Panel Informationon 01-05 Estimated GFR (MDRD) Amer 133 mL/min >60 [facility] Work Phone: Comment on above: GFR Calc Estimated GFR (MDRD) Non-Af Amer 110 mL/min >60 [facility] Work Phone: Comment on above: Non- GFR Calc Platelets bldon 01-05-2022 Platelets (Bld) [#/Vol] 373 10*3/uL 150-450 [facility] Work Phone: Serum or plasma calcium oral urement (mass/volume)on 01-05-2022 Calcium [Mass/Vol] 8.8 mg/dL 8.5-10.1 [facility] Work Phone: Serum or plasma creatinine m easurement (mass/volume)on 01-05-2022 Creatinine [Mass/Vol] 0.75 mg/dL 0.70-1.30 [facility] Work Phone: Comment on above: The validity of the calculated GFR & GFRAA in patients over 70 years has not been determined. Clinical correlation is essential. Serum or plasma urea nitroge n measurement (mass/volume)on 01-05-2022 Urea nitrogen [Mass/Vol] 15 mg/dL 7-18 [facility] Work Phone: Thin prep Papanicolaou smear with manual screeningon 01-05-2022 Thin prep Papanicolaou smear with manual screening 8 5-15 [facility] Work Phone: Laboratory - Coagulationon 0 12-30-2021 INR Coag (Bld) [Relative time] 2.0 {INR} [facility] Work Phone: Comment on above: Critical Value > 4.0 Whole blood prothrombin time on 12-30-2021 PT Coag (Bld) [Time] 23.7 s 11.7-14.9 [facility] Work Phone: Basophil percentageon 2021 Chloride [Moles/Vol] 106 mmol/L 98-107 [facility] Work Phone: Glucose [Mass/Vol] 91 mg/dL 74-106 [facility] Work Phone: Potassium [Moles/Vol] 3.4 mmol/L 3.5-5.1 [facility] Work Phone: Sodium [Moles/Vol] 141 mmol/L 136-145 [facility] Work Phone: WBC (Bld) [#/Vol] 10.2 10*3/uL 4.4-11.0 [facility] Work Phone: Blood erythrocytes count (nu mber/volume)on 12-28-2021 RBC (Bld) [#/Vol] 4.22 10*6/uL 4.6-6.2 [facility] Work Phone: Blood hemoglobin measurement (mass/volume)on 12-28-2021 Hemoglobin (Bld) [Mass/Vol] 11.2 g/dL 13.0-16.5 [facility] Work Phone: Blood platelet mean volumeon 12-28-2021 Platelet mean volume (Bld) [Entitic vol] 10.1 fL 6.2-12.0 [facility] Work Phone: Determination of erythrocyte mean corpuscular volume (MCV)on 12-28-2021 MCV (RBC) [Entitic vol] 82.7 fL 80-94 [facility] Work Phone: Hematocrit Auto (Bld) [Volum e fraction]on 12-28-2021 Hematocrit (Bld) [Volume fraction] 34.9 % 40-54 [facility] Work Phone: Laboratory - Chemistry and C hemistry - challengeon 12-28-2021 CO2 [Moles/Vol] 30.0 mmol/L 21.0-32.0 [facility] Work Phone: Urea nitrogen/Creatinine [Mass ratio] 33.7 mg/mg 10-20 [facility] Work Phone: Laboratory - Hematology and Cell countson 12-28-2021 Erythrocyte distribution width (RBC) [Entitic vol] 49.1 fL 35.1-43.9 [facility] Work Phone: Erythrocyte distribution width (RBC) [Ratio] 16.5 % 11.6-14.6 [facility] Work Phone: MCH (RBC) [Entitic mass] 26.5 pg 27.0-32.0 [facility] Work Phone: MCHC Auto (RBC) [Mass/Vol]on 12-28-2021 MCHC (RBC) [Mass/Vol] 32.1 g/dL 32-36 [facility] Work Phone: No Panel Informationon 12-28 Estimated GFR (MDRD) Amer 174 mL/min >60 [facility] Work Phone: Comment on above: GFR Calc Estimated GFR (MDRD) Non-Af Amer 143 mL/min >60 [facility] Work Phone: Comment on above: Non- GFR Calc Platelets bldon 12-28-2021 Platelets (Bld) [#/Vol] 339 10*3/uL 150-450 [facility] Work Phone: Serum or plasma calcium oral urement (mass/volume)on 12-28-2021 Calcium [Mass/Vol] 8.6 mg/dL 8.5-10.1 [facility] Work Phone: Serum or plasma creatinine m easurement (mass/volume)on 12-28-2021 Creatinine [Mass/Vol] 0.59 mg/dL 0.70-1.30 [facility] Work Phone: Comment on above: The validity of the calculated GFR & GFRAA in patients over 70 years has not been determined. Clinical correlation is essential. Serum or plasma urea nitroge n measurement (mass/volume)on 12-28-2021 Urea nitrogen [Mass/Vol] 20 mg/dL 7-18 [facility] Work Phone: Thin prep Papanicolaou smear with manual screeningon 12-28-2021 Thin prep Papanicolaou smear with manual screening 5 5-15 [facility] Work Phone: CULTURE BLOODon 12-27-2021 Microscopic examination of blood, culture CULTURE BLOOD --> Status: F No growth at 5 days. Normal [facility] Comment on above: Performed By: #### C /BLD #### [employer] [address] [place] [id number] Laboratory - Coagulationon 0 12-26-2021 INR Coag (Bld) [Relative time] 1.7 {INR} [facility] Work Phone: Comment on above: Critical Value > 4.0 Whole blood prothrombin time on 12-26-2021 PT Coag (Bld) [Time] 20.8 s 11.7-14.9 [facility] Work Phone: Basic Metabolic Panelon 12-05 Calcium [Mass/Vol] 8.8 mg/dL Normal 8.4-10.4 [facility] Comment on above: Performed By: #### C RP2, ESR, HEMDF, BMP3 ####[id number] [place], [place] Anion gap [Moles/Vol] 6 mmol/L Normal 3-13 [facility] Comment on above: Performed By: #### C RP2, ESR, HEMDF, BMP3 ####[address] [place] CO2 [Moles/Vol] 27 mmol/L Normal 22-30 [facility] Comment on above: Performed By: #### C RP2, ESR, HEMDF, BMP3 ####[address] [place] Glucose [Mass/Vol] 100 mg/dL Normal 70-100 [facility] Comment on above: Performed By: #### C RP2, ESR, HEMDF, BMP3 ####[address] [place] Urea nitrogen [Mass/Vol] 18 mg/dL High 7-17 [facility] Comment on above: Performed By: #### C RP2, ESR, HEMDF, BMP3 ####[address] [place] Creatinine [Mass/Vol] 0.73 mg/dL Normal 0.52-1.25 [facility] Comment on above: Performed By: #### C RP2, ESR, HEMDF, BMP3 ####[address] [place] eGFR OTHER > 90.0 Normal >60 [facility] Comment on above: Result Comment: KDIG [...] C RP2, ESR, HEMDF, BMP3 ####[address] [place] [address] GFR/1.73 sq M.predicted among blacks MDRD (S/P/Bld) [Vol rate/Area] mL/min/{1.73_m2} Normal >60 [facility] Comment on above: Performed By: #### C RP2, ESR, HEMDF, BMP3 ####[address] [place], [place] Potassium [Moles/Vol] 3.7 mmol/L Normal 3.5-5.1 [facility] Comment on above: Performed By: #### C RP2, ESR, HEMDF, BMP3 ####[address] [address] Chloride [Moles/Vol] 106 mmol/L Normal 98-107 [facility] Comment on above: Performed By: #### C RP2, ESR, HEMDF, BMP3 ####[address] [place] [address] Sodium [Moles/Vol] 139 mmol/L Normal 135-145 [facility] Comment on above: Performed By: #### C RP2, ESR, HEMDF, BMP3 ####[address] [address] Anion gap [Moles/Vol] 6 mmol/L 3 - 13 mmol/L [facility] Calcium [Mass/Vol] 8.8 mg/dL 8.4 - 10. 4 mg/dL [facility] Chloride [Moles/Vol] 106 mmol/L 98 - 10 7 mmol/L [facility] CO2 [Moles/Vol] 27 mmol/L 22 - 30 mmol/L [facility] Creatinine [Mass/Vol] 0.73 mg/dL 0.52 - 1.25 mg/dL [facility] eGFR mL/min 60 - P INF mL/min [facility] EGFR IF NonAfrican Bruneian mL/min 60 - PINF mL/min [facility] Comment [...] percentage 25-50 SEEN /hpf 0-5 [facility] Work Phone: Chloride [Moles/Vol] 106 mmol/L 98-[address] [facility] Work Phone: Glucose [Mass/Vol] 93 mg/dL 74-106 [facility] Work Phone: Potassium [Moles/Vol] 3.5 mmol/L 3.5-5.1 [facility] Work Phone: Sodium [Moles/Vol] 140 mmol/L 136-145 [facility] Work Phone: WBC (Bld) [#/Vol] 9.6 10*3/uL 4.4-11.0 [facility] Work Phone: Bilirubin Test strip Ql (U)o n 12-22-2021 Bilirubin Ql (U) Negative Negative [facility] Work Phone: Blood erythrocytes count (nu mber/volume)on 12-22-2021 RBC (Bld) [#/Vol] 4.34 10*6/uL 4.6-6.2 [facility] Work Phone: Blood hemoglobin measurement (mass/volume)on 12-22-2021 Hemoglobin (Bld) [Mass/Vol] 11.5 g/dL 13.0-16.5 [facility] Work Phone: Blood platelet mean volumeon 12-22-2021 Platelet mean volume (Bld) [Entitic vol] 10.8 fL 6.2-12.0 [facility] Work Phone: C-Reactive Proteinon 022 CRP [Mass/Vol] 27.2 mg/L High 0.0-9.9 [facility] [employer] [facility] Comment on above: Result Comment: . Performed By: #### C RP2, ESR, HEMDF, BMP3 ####[facility] [employer] [id number] [place] [address] CRP [Mass/Vol] 27.2 mg/L High 0 - 9.9 mg/L [facility] Comment on above: . CBC [...] - 10.7 10*3/uL [facility] Test Performed by [facility], [address] [place] [id number] [place] [address] LAB [facility] COVID-19, Flu A/B, and RSV C [facility] 12-22-2021 Influenza A by PCR Not detected [facility] A Influenza B by PCR Not detected [facility] A RSV PCR Not Detected. Expected Result: Not Detected _ Method: Real-time, RT-PCR This assay was developed by [employer] and distributed under an Emergency Use Authorization (EUA) granted by the FDA for the qualitative detection of nucleic acids from SARS-CoV-2, Influenza A, Influenza B, and Respiratory Syncytial Virus. Provider and patient fact sheets can be found at https://www.fda.gov/media /177124/download and https://www.fda.gov/media /543880/download. [facility] SARS-CoV-2 (COVID-19) RNA MEGAN+probe Ql (Unsp spec) Not detected [facility] Test Performed by [address] LAB [facility] CR Foot Complete 3+ Views [place] 12-22-2021 CR Foot Complete 3+ Views Left Patient Name: ANDREW SIFUENTES Diagnostic Radiology ACCESSION EXAM DATE/TIME PROCEDURE ORDERING PROVIDER [id number] 12/22/2021 00:09 EDT CR Foot Complete 3+ SANDY HIDALGO, HENRY Godoy Views Left CPT code 70644 Reason For Exam (CR Foot Complete 3+ [...] Transcribed Date and Time: 12/22/2021 0:21 Normal [facility] Calcium oxalate crystals det ection in urine sediment by light microscopyon 12-22-2021 Calcium oxalate crystals LM Ql (Urine sed) 1+ /hpf [facility] Work Phone: Determination of erythrocyte mean corpuscular volume (MCV)on 12-22-2021 MCV (RBC) [Entitic vol] 84.3 fL 80-94 [facility] Work Phone: ED Provider Noteon 2 ED Provider Note Emergency Department Encounter [facility] Patient: Andrew Sifuentes : 1950 [...] 79.4 kg (175 lb), SpO2 96 %. [id number] in no acute distress. Alert and oriented [...] [employer] Sharon Olivia MD 12/22/21 0305 [facility] ED Provider Note [facility] EMERGENCY DEPARTMENT ENCOUNTER Pt Name: Andrew Sifuentes Birthdate 1950 Date of evaluation: 12/21/2021 Provider: SANIA Lou CHIEF COMPLAINT Chief Complaint Patient presents with Osteomyelitis [facility] facility did xrays on left lower leg and and have concerns for possible osteomyelitis A&Ox2 to self and place, stated year 2022 pres[facility] Miss martini HISTORY OF PRESENT ILLNESS (Location/Symptom, Timing/Onset, Context/Setting, Quality,Duration, Modifying Factors, Severity) Note limiting factors. 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 Tenderness: (more content not included)... Normal [facility] Hematocrit Auto (Bld) [Volum e fraction]on 12-22-2021 Hematocrit (Bld) [Volume fraction] 36.6 % 40-54 [facility] Work Phone: Hemogram w/ Autodiffon 12-22 Abs Baso Cnt 0.1 10*3/uL Normal 0.0-0.2 [facility] Comment on above: Performed By: #### C RP2, ESR, HEMDF, BMP3 ####[facility] [employer] [id number] [place] [address] Abs Neutrophile Cnt 5.9 10*3/uL Normal 1.8-7.0 [facility] Comment on above: Performed By: #### C RP2, ESR, HEMDF, BMP3 ####[facility] [employer] [id number] [place] [address] Basophils/100 WBC (Bld) 0.7 % Normal 0.0-2.0 [facility] Comment on above: Performed By: #### C RP2, ESR, HEMDF, BMP3 ####[facility] [employer] [id number] [place] [address] Eosinophils (Bld) [#/Vol] 0.2 10*3/uL Normal 0.0-0.5 [facility] Comment on above: Performed By: #### C RP2, ESR, HEMDF, BMP3 ####[id number] [place], [place] Eosinophils/100 WBC (Bld) 2.3 % Normal 1.0-6.0 [facility] Comment on above: Performed By: #### C RP2, ESR, HEMDF, BMP3 ####[address] Erythrocyte distribution width (RBC) [Ratio] 17.5 % High 11.5-14.5 [facility] Comment on above: Performed By: #### C RP2, ESR, HEMDF, BMP3 ####[address] Granulocytes/100 WBC (Bld) 57.8 % Normal 40.0-80.0 [facility] Comment on above: Performed By: #### C RP2, ESR, HEMDF, BMP3 ####[address] Hematocrit (Bld) [Volume fraction] 33.3 % Low 40.0-52.0 [facility] Comment on above: Performed By: #### C RP2, ESR, HEMDF, BMP3 ####[address] Hemoglobin (Bld) [Mass/Vol] 11.0 g/dL Low 13.0-18.0 [facility] Comment on above: Performed By: #### C RP2, ESR, HEMDF, BMP3 ####[address] Lymphocytes (Bld) [#/Vol] 3.3 10*3/uL Normal 1.0-4.3 [facility] Comment on above: Performed By: #### C RP2, ESR, HEMDF, BMP3 ####[address] Lymphocytes/100 WBC (Bld) 33.0 % Normal 20.0-40.0 [facility] Comment on above: Performed By: #### C RP2, ESR, HEMDF, BMP3 ####[address] MCH (RBC) [Entitic mass] 26.5 pg Normal 26.0-34.0 [facility] Comment on above: Performed By: #### C RP2, ESR, HEMDF, BMP3 ####[address] MCHC 33.1 % Normal 32.0-36.0 [facility] Comment on above: Performed By: #### C RP2, ESR, HEMDF, BMP3 ####[id number] [place], [place] MCV (RBC) [Entitic vol] 80.2 fL Normal 80.0-98.0 [facility] Comment on above: Performed By: #### C RP2, ESR, HEMDF, BMP3 ####[address] Monocytes (Bld) [#/Vol] 0.6 10*3/uL Normal 0.0-0.8 [facility] Comment on above: Performed By: #### C RP2, ESR, HEMDF, BMP3 ####[address] Monocytes/100 WBC (Bld) 6.2 % Normal 2.0-10.0 [facility] Comment on above: Performed By: #### C RP2, ESR, HEMDF, BMP3 ####[address] Platelet mean volume (Bld) [Entitic vol] 8.0 fL Normal 7.4-12.4 [facility] Comment on above: Result Comment: MPV is a calculated measurement using platelet volume ratio. Performed By: #### C RP2, ESR, HEMDF, BMP3 ####[address] Platelets (Bld) [#/Vol] 368 10*3/uL Normal 140-440 [facility] Comment on above: Performed By: #### C RP2, ESR, HEMDF, BMP3 ####[facility] [id number] [place], [place] RBC (Bld) [#/Vol] 4.15 10*6/uL Low 4.40-5.90 [facility] Comment on above: Performed By: #### C RP2, ESR, HEMDF, BMP3 ####[facility] [id number] [place], [place] WBC (Bld) [#/Vol] 10.1 10*3/uL Normal 3.6-10.7 [facility] Comment on above: Performed By: #### C RP2, ESR, HEMDF, BMP3 ####[facility] [id number] [place], [place] Ketones Test strip Ql (U)on 12-22-2021 Ketones Ql (U) Negative Negative [facility] Work Phone: Laboratory - Chemistry and C hemistry - challengeon 12-22-2021 CO2 [Moles/Vol] 27.0 mmol/L 21.0-32.0 [facility] Work Phone: Urea nitrogen/Creatinine [Mass ratio] 22.5 mg/mg 10-20 [facility] Work Phone: Laboratory - Hematology and Cell countson 12-22-2021 Erythrocyte distribution width (RBC) [Entitic vol] 49.1 fL 35.1-43.9 [facility] Work Phone: Erythrocyte distribution width (RBC) [Ratio] 16.1 % 11.6-14.6 [facility] Work Phone: MCH (RBC) [Entitic mass] 26.5 pg 27.0-32.0 [facility] Work Phone: MCHC Auto (RBC) [Mass/Vol]on 12-22-2021 MCHC (RBC) [Mass/Vol] 31.4 g/dL 32-36 [facility] Work Phone: Mucus LM Ql (Urine sed)on Mucus Ql (Urine sed) 0 SEEN /[facility] Work [facility]: Nitrite Test strip Ql (U)on 12-22-2021 Nitrite Ql (U) Positive Negative [facility] Work Phone: No Panel Informationon 12-22 Estimated GFR (MDRD) Amer 152 mL/min >60 [facility] Work Phone: Comment on above: GFR Calc Estimated GFR (MDRD) Non-Af Amer 125 mL/min >60 [facility] Work Phone: Comment on above: Non- GFR Calc Interpretation and review of laboratory results Abnormal [facility] Test Performed by [facility], [address] [place] [id number] [facility] Platelets bldon 12-22-2021 Platelets (Bld) [#/Vol] 317 10*3/uL 150-450 [facility] Work Phone: Protein Test strip Ql (U)on 12-22-2021 Protein Ql (U) 30 mg/dl Negative [facility] Work Phone: SARS-CoV-2, Flu A/B and RSVo n 12-22-2021 SARS-CoV-2 (COVID-19) RNA MEGAN+probe Ql (Unsp spec) SARS-CoV-2 --> Status: F Not Detected. Flu A PCR --> Status: F Not Detected. Flu B PCR --> Status: F Not Detected. RSV PCR --> Status: F Not Detected. Expected Result: Not Detected _ Method: Real-time, RT-PCR This assay was developed by [employer] and distributed under an Emergency Use Authorization (EUA) granted by the FDA for the qualitative detection of nucleic acids from SARS-CoV-2, Influenza A, Influenza B, and Respiratory Syncytial Virus. Provider and patient fact sheets can be found at https://www.fda.gov/media /015953/download and https://www.fda.gov/media /832615/download. Expected Result: Not Detected _ Method: Real-time, RT-PCR This assay was developed by [employer] and distributed under an Emergency Use Authorization (EUA) granted by the FDA for the qualitative detection of nucleic acids from SARS-CoV-2, Influenza A, Influenza B, and Respiratory Syncytial Virus. Provider and patient fact sheets can be found at https://www.fda.gov/media /224304/download and https://www.fda.gov/media /288364/download. Normal [facility] Comment on above: Performed By: #### C VFLR ####[facility] [place] [address], [id number] Sed Rateon 12-22-2021 Sed Rate 48 mm/h High 0-10 [facility] Comment on above: Performed By: #### C RP2, ESR, HEMDF, BMP3 ####[address] [place] [address] Sedimentation Rateon 022 Interpretation and review of laboratory results Abnormal [facility] Sed Rate 48 mm/h High 0 - 10 mm/h [facility] Test Performed by [facility], [address] [place] [address] [facility] Serum or plasma calcium oral urement (mass/volume)on 12-22-2021 Calcium [Mass/Vol] 8.6 mg/dL 8.5-10.1 [facility] Work Phone: Serum or plasma creatinine m easurement (mass/volume)on 12-22-2021 Creatinine [Mass/Vol] 0.67 mg/dL 0.70-1.30 [facility] Work Phone: Comment on above: The validity of the calculated GFR & GFRAA in patients over 70 years has not been determined. Clinical correlation is essential. Serum or plasma urea nitroge n measurement (mass/volume)on 12-22-2021 Urea nitrogen [Mass/Vol] 15 mg/dL 11-21 [facility] Work Phone: Squamous epithelial cells de tection in urine sediment by light microscopyon 12-22-2021 Epithelial cells.squamous LM Ql (Urine sed) 0-5 SEEN /hpf 0-5 [facility] Work Phone: Thin prep Papanicolaou smear with manual screeningon 12-22-2021 Thin prep Papanicolaou smear with manual screening 7 5-15 [facility] Work Phone: Urine blood detectionon 12-05 RBC Ql (U) 150 /ul Negative [facility] Work Phone: RBC Ql (U) 10-25 SEEN /hpf 0-5 [facility] Work Phone: Urine clarityon 12-22-2021 Clarity (U) Sl. Cloudy Clear [facility] Work Phone: Urine color determinationon 12-22-2021 Color (U) Yellow Yellow [facility] Work Phone: Urine glucose detectionon Glucose Ql (U) Normal mg/dl Normal [facility] Work Phone: Urine leukocyte esterase det ection by dipstickon 12-22-2021 Leukocyte esterase Test strip Ql (U) 500 /ul Negative [facility] Work Phone: Urine pHon 12-22-2021 pH (U) 6.0 [pH] 5.0 - 8.0 [facility] Work Phone: Urine sediment bacteria coun t by microscopy (number/high power field)on 12-22-2021 Bacteria LM.HPF (Urine sed) [#/Area] 2 /[HPF] None Seen [facility] Work Phone: Urine specific gravity measu rementon 12-22-2021 Specific gravity (U) [Rel density] 1.020 1.002-1.030 [facility] Work Phone: Urobilinogen Auto test strip Ql (U)on 12-22-2021 Urobilinogen Ql (U) Normal mg/dl Normal [facility] Work Phone: XR FOOT LEFT (MIN 3 VIEWS)on 12-22-2021 Patient Name: ANDREW LARSEN Diagnostic Radiology ACCESSION EXAM DATE/TIME PROCEDURE ORDERING PROVIDER [id number] 12/22/2021 00:09 EDT CR Foot Complete 3+ SANDY HIDALGO JOHN M Views Left CPT code 80598 Reason For Exam (CR Foot Complete 3+ [...] Transcribed Date and Time: 12/22/2021 0:21 [facility] Albert Solano MD - 12/22/2021 [id number]iology ACCESSION EXAM DATE/TIME PROCEDURE ORDERING PROVIDER [id number] 12/22/2021 00:09 EDT CR Foot Complete 3+ SANDY HIDALGO JOHN M Views Left CPT code 08520 Reason For Exam (CR Foot Complete 3+ [...] JEFFREY Transcribed Date and Time: 12/22/2021 0:21 [facility] Work Phone: Radiology Study observation (narrative) [facility] Work Phone: XR FOOT LEFT (MIN 3 VIEWS)Or dered By: Albert Solano on 12-22-2021 [facility] Work Phone: Basophil percentageon 2021 Chloride [Moles/Vol] 103 mmol/L 98-107 [facility] Work Phone: Glucose [Mass/Vol] 92 mg/dL 74-106 [facility] Work Phone: Potassium [Moles/Vol] 3.5 mmol/L 3.5-5.1 [facility] Work Phone: Sodium [Moles/Vol] 138 mmol/L 136-145 [facility] Work Phone: WBC (Bld) [#/Vol] 11.2 10*3/uL 4.4-11.0 [facility] Work Phone: Blood erythrocytes count (nu mber/volume)on 12-19-2021 RBC (Bld) [#/Vol] 4.50 10*6/uL 4.6-6.2 [facility] Work Phone: Blood hemoglobin measurement (mass/volume)on 12-19-2021 Hemoglobin (Bld) [Mass/Vol] 12.2 g/dL 13.0-16.5 [facility] Work Phone: Blood platelet mean volumeon 12-19-2021 Platelet mean volume (Bld) [Entitic vol] 11.3 fL 6.2-12.0 [facility] Work Phone: Determination of erythrocyte mean corpuscular volume (MCV)on 12-19-2021 MCV (RBC) [Entitic vol] 85.6 fL 80-94 [facility] Work Phone: Hematocrit Auto (Bld) [Volum e fraction]on 12-19-2021 Hematocrit (Bld) [Volume fraction] 38.5 % 40-54 [facility] Work Phone: Laboratory - Chemistry and C hemistry - challengeon 12-19-2021 CO2 [Moles/Vol] 30.0 mmol/L 21.0-32.0 [facility] Work Phone: Urea nitrogen/Creatinine [Mass ratio] 27.1 mg/mg 10-20 [facility] Work Phone: Laboratory - Hematology and Cell countson 12-19-2021 Erythrocyte distribution width (RBC) [Entitic vol] 50.5 fL 35.1-43.9 [facility] Work Phone: Erythrocyte distribution width (RBC) [Ratio] 16.0 % 11.6-14.6 [facility] Work Phone: MCH (RBC) [Entitic mass] 27.1 pg 27.0-32.0 [facility] Work Phone: MCHC Auto (RBC) [Mass/Vol]on 12-19-2021 MCHC (RBC) [Mass/Vol] 31.7 g/dL 32-36 [facility] Work Phone: No Panel Informationon 12-19 Estimated GFR (MDRD) Amer 153 mL/min >60 [facility] Work Phone: Comment on above: GFR Calc Estimated GFR (MDRD) Non-Af Amer 126 mL/min >60 [facility] Work Phone: Comment on above: Non- GFR Calc Platelets bldon 12-19-2021 Platelets (Bld) [#/Vol] 363 10*3/uL 150-450 [facility] Work Phone: Serum or plasma calcium oral urement (mass/volume)on 12-19-2021 Calcium [Mass/Vol] 9.5 mg/dL 8.5-10.1 [facility] Work Phone: Serum or plasma creatinine m easurement (mass/volume)on 12-19-2021 Creatinine [Mass/Vol] 0.66 mg/dL 0.70-1.30 [facility] Work Phone: Comment on above: The validity of the calculated GFR & GFRAA in patients over 70 years has not been determined. Clinical correlation is essential. Serum or plasma urea nitroge n measurement (mass/volume)on 12-19-2021 Urea nitrogen [Mass/Vol] 18 mg/dL 7-18 [facility] Work Phone: Thin prep Papanicolaou smear with manual screeningon 12-19-2021 Thin prep Papanicolaou smear with manual screening 5 - [facility] Work Phone: Laboratory - Coagulationon 0 12-12-2021 INR Coag (Bld) [Relative time] 2.0 {INR} [facility] Work Phone: Comment on above: Critical Value > 4.0 Whole blood prothrombin time on 12-12-2021 PT Coag (Bld) [Time] 23.9 s 11.7-14.9 [facility] Work Phone: ANES POSTPROC EVALon 022 ANES POSTPROC EVAL Normal [facility] Laboratory - Coagulationon 0 12-08-2021 INR Coag (Bld) [Relative time] 1.8 {INR} [facility] Work Phone: Comment on above: Critical Value > 4.0 Whole blood prothrombin time on 12-08-2021 PT Coag (Bld) [Time] 21.0 s 11.7-14.9 [facility] Work Phone: Absolute lymphocyte counton 12-05-2021 Lymphocytes Auto (Unsp spec) [#/Vol] 2.97 10*3/uL 0.83-4.51 [facility] Work Phone: Basophil percentageon 2021 Basophils/100 WBC (Bld) 0.6 % 0-1 [facility] Work Phone: Chloride [Moles/Vol] 106 mmol/L 98-107 [facility] Work Phone: Eosinophils/100 WBC (Bld) 2.3 % 0-5 [facility] Work Phone: Glucose [Mass/Vol] 107 mg/dL 74-106 [facility] Work Phone: Comment on above: Fasting Glucose resu lt from 100 to 125 mg/dL suggests IMPAIRED HOMEOSTASIS per A.D.A. criteria. Neutrophils (Bld) [#/Vol] 5.6 10*3/uL 2.0-7.7 [facility] Work Phone: [phone] Neutrophils/100 WBC (Bld) 60.2 % 47-70 [facility] Work Phone: [phone] Potassium [Moles/Vol] 3.4 mmol/L 3.5-5.1 [facility] Work Phone: Sodium [Moles/Vol] 139 mmol/L 136-145 [facility] Work Phone: [phone] WBC (Bld) [#/Vol] 9.3 10*3/uL 4.4-11.0 [facility] Work Phone: [phone] Blood erythrocytes count (nu mber/volume)on 12-05-2021 RBC (Bld) [#/Vol] 4.49 10*6/uL 4.6-6.2 [facility] Work Phone: [phone] Blood hemoglobin measurement (mass/volume)on 12-05-2021 Hemoglobin (Bld) [Mass/Vol] 12.1 g/dL 13.0-16.5 [facility] Work Phone: [phone] Blood lymphocytes/100 leukoc yteson 12-05-2021 Lymphocytes/100 WBC (Bld) 32.0 % 19-41 [facility] Work Phone: Blood monocytes/100 leukocyt eson 12-05-2021 Monocytes/100 WBC (Bld) 4.7 % 0-10 [facility] Work Phone: Blood platelet mean volumeon 12-05-2021 Platelet mean volume (Bld) [Entitic vol] 10.8 fL 6.2-12.0 [facility] Work Phone: Determination of erythrocyte mean corpuscular volume (MCV)on 12-05-2021 MCV (RBC) [Entitic vol] 84.9 fL 80-94 [facility] Work Phone: Hematocrit Auto (Bld) [Volum e fraction]on 12-05-2021 Hematocrit (Bld) [Volume fraction] 38.1 % 40-54 [facility] Work Phone: INR in Blood by Coagulation assayon 12-05-2021 INR Coag (Bld) [Relative time] 1.8 {INR} [facility] Work Phone: Laboratory - Chemistry and C hemistry - challengeon 12-05-2021 CO2 [Moles/Vol] 29.0 mmol/L 21.0-32.0 [facility] Work Phone: Urea nitrogen/Creatinine [Mass ratio] 25.4 mg/mg 10-20 [facility] Work Phone: Laboratory - Coagulationon 0 12-05-2021 PT Coag (PPP) [Time] 20.5 s 11.7-14.9 [facility] Work Phone: Laboratory - Hematology and Cell countson 12-05-2021 Erythrocyte distribution width (RBC) [Entitic vol] 48.5 fL 35.1-43.9 [facility] Work Phone: Erythrocyte distribution width (RBC) [Ratio] 15.7 % 11.6-14.6 [facility] Work Phone: Immature granulocytes/100 WBC (Bld) 0.200 % 0.0-0.9 [facility] Work Phone: Comment on above: IG% - Immature Granu locytes (promyelocytes, myelocytes and metamyelocytes) > 1% indicates that a LEFT SHIFT is Present. MCH (RBC) [Entitic mass] 26.9 pg 27.0-32.0 [facility] Work Phone: Nucleated RBC/100 WBC (Bld) [Ratio] 0 % 0-5 [facility] Work Phone: MCHC Auto (RBC) [Mass/Vol]on 12-05-2021 MCHC (RBC) [Mass/Vol] 31.8 g/dL 32-36 [facility] Work Phone: No Panel Informationon 12-05 Estimated GFR (MDRD) Amer 133 mL/min >60 [facility] Work Phone: Comment on above: GFR Calc Estimated GFR (MDRD) Non-Af Amer 110 mL/min >60 [facility] Work Phone: Comment on above: Non- GFR Calc Platelets bldon 12-05-2021 Platelets (Bld) [#/Vol] 363 10*3/uL 150-450 [facility] Work Phone: Serum or plasma calcium oral urement (mass/volume)on 12-05-2021 Calcium [Mass/Vol] 9.4 mg/dL 8.5-10.1 [facility] Work Phone: Serum or plasma creatinine m easurement (mass/volume)on 12-05-2021 Creatinine [Mass/Vol] 0.75 mg/dL 0.70-1.30 [facility] Work Phone: Comment on above: The validity of the calculated GFR & GFRAA in patients over 70 years has not been determined. Clinical correlation is essential. Serum or plasma urea nitroge n measurement (mass/volume)on 12-05-2021 Urea nitrogen [Mass/Vol] 19 mg/dL 7-18 [facility] Work Phone: Thin prep Papanicolaou smear with manual screeningon 12-05-2021 Thin prep Papanicolaou smear with manual screening 4 5-15 [facility] Work Phone: Basophil percentageon 2021 Basophil percentage 0 SEEN /hpf 0-5 [facility] Work Phone: Chloride [Moles/Vol] 104 mmol/L 98-107 [facility] Work Phone: Glucose [Mass/Vol] 90 mg/dL 74-106 [facility] Work Phone: Potassium [Moles/Vol] 3.7 mmol/L 3.5-5.1 [facility] Work Phone: Comment on above: Slight Hemolysis, Re sult may be falsely increased. Sodium [Moles/Vol] 138 mmol/L 136-145 [facility] Work Phone: WBC (Bld) [#/Vol] 10.7 10*3/uL 4.4-11.0 [facility] Work Phone: Bilirubin Test strip Ql (U)o n 12-01-2021 Bilirubin Ql (U) Negative Negative [facility] Work Phone: Blood erythrocytes count (nu mber/volume)on 12-01-2021 RBC (Bld) [#/Vol] 4.33 10*6/uL 4.6-6.2 [facility] Work Phone: Blood hemoglobin measurement (mass/volume)on 12-01-2021 Hemoglobin (Bld) [Mass/Vol] 11.6 g/dL 13.0-16.5 [facility] Work Phone: Blood platelet mean volumeon 12-01-2021 Platelet mean volume (Bld) [Entitic vol] 11.2 fL 6.2-12.0 [facility] Work Phone: Determination of erythrocyte mean corpuscular volume (MCV)on 12-01-2021 MCV (RBC) [Entitic vol] 85.2 fL 80-94 [facility] Work Phone: Hematocrit Auto (Bld) [Volum e fraction]on 12-01-2021 Hematocrit (Bld) [Volume fraction] 36.9 % 40-54 [facility] Work Phone: Ketones Test strip Ql (U)on 12-01-2021 Ketones Ql (U) Negative Negative [facility] Work Phone: Laboratory - Chemistry and C hemistry - challengeon 12-01-2021 CO2 [Moles/Vol] 27.0 mmol/L 21.0-32.0 [facility] Work Phone: Urea nitrogen/Creatinine [Mass ratio] 24.0 mg/mg 10-20 [facility] Work Phone: Laboratory - Coagulationon 0 12-01-2021 INR Coag (Bld) [Relative time] 1.6 {INR} [facility] Work Phone: Comment on above: Critical Value > 4.0 Laboratory - Hematology and Cell countson 12-01-2021 Erythrocyte distribution width (RBC) [Entitic vol] 47.9 fL 35.1-43.9 [facility] Work Phone: Erythrocyte distribution width (RBC) [Ratio] 15.5 % 11.6-14.6 [facility] Work Phone: MCH (RBC) [Entitic mass] 26.8 pg 27.0-32.0 [facility] Work Phone: MCHC Auto (RBC) [Mass/Vol]on 12-01-2021 MCHC (RBC) [Mass/Vol] 31.4 g/dL 32-36 [facility] Work Phone: Mucus LM Ql (Urine sed)on Mucus Ql (Urine sed) 0 SEEN /hpf [facility] Work Phone: Nitrite Test strip Ql (U)on 12-01-2021 Nitrite Ql (U) Negative Negative [facility] Work Phone: No Panel Informationon 12-01 Estimated GFR (MDRD) Amer 133 mL/min >60 [facility] Work Phone: Comment on above: GFR Calc Estimated GFR (MDRD) Non-Af Amer 110 mL/min >60 [facility] Work Phone: Comment on above: Non- GFR Calc Platelets bldon 12-01-2021 Platelets (Bld) [#/Vol] 336 10*3/uL 150-450 [facility] Work Phone: Protein Test strip Ql (U)on 12-01-2021 Protein Ql (U) 30 mg/dl Negative [facility] Work Phone: Serum or plasma calcium oral urement (mass/volume)on 12-01-2021 Calcium [Mass/Vol] 9.4 mg/dL 8.5-10.1 [facility] Work Phone: Serum or plasma creatinine m easurement (mass/volume)on 12-01-2021 Creatinine [Mass/Vol] 0.75 mg/dL 0.70-1.30 [facility] Work Phone: Comment on above: The validity of the calculated GFR & GFRAA in patients over 70 years has not been determined. Clinical correlation is essential. Serum or plasma urea nitroge n measurement (mass/volume)on 12-01-2021 Urea nitrogen [Mass/Vol] 18 mg/dL 7-18 [facility] Work Phone: Squamous epithelial cells de tection in urine sediment by light microscopyon 12-01-2021 Epithelial cells.squamous LM Ql (Urine sed) 0-5 SEEN /hpf 0-5 [facility] Work Phone: Thin prep Papanicolaou smear with manual screeningon 12-01-2021 Thin prep Papanicolaou smear with manual screening 7 5-15 [facility] Work Phone: Urine blood detectionon 11-05 RBC Ql (U) Negative Negative [facility] Work Phone: RBC Ql (U) 0 SEEN /hpf 0-5 [facility] Work Phone: Urine clarityon 12-01-2021 Clarity (U) Clear Clear [facility] Work Phone: Urine color determinationon 12-01-2021 Color (U) Yellow Yellow [facility] Work Phone: Urine glucose detectionon Glucose Ql (U) 50 mg/dl Normal [facility] Work Phone: Urine leukocyte esterase det ection by dipstickon 12-01-2021 Leukocyte esterase Test strip Ql (U) Negative Negative [facility] Work Phone: Urine pHon 12-01-2021 pH (U) 6.0 [pH] 5.0 - 8.0 [facility] Work Phone: Urine sediment bacteria coun t by microscopy (number/high power field)on 12-01-2021 Bacteria LM.HPF (Urine sed) [#/Area] 0 /[HPF] None Seen [facility] Work Phone: Urine sediment yeast count b y microscopy (number/high powered field)on 12-01-2021 Yeast LM.HPF (Urine sed) [#/Area] 2 /[HPF] None Seen [facility] Work Phone: Urine specific gravity measu rementon 12-01-2021 Specific gravity (U) [Rel density] 1.010 1.002-1.030 [facility] Work Phone: Urobilinogen Auto test strip Ql (U)on 12-01-2021 Urobilinogen Ql (U) Normal mg/dl Normal [facility] Work Phone: Whole blood prothrombin time on 12-01-2021 PT Coag (Bld) [Time] 19.8 s 11.7-14.9 [facility] Work Phone: Laboratory - Coagulationon 0 11-28-2021 INR Coag (Bld) [Relative time] 1.6 {INR} [facility] Work Phone: Comment on above: Critical Value > 4.0 Whole blood prothrombin time on 11-28-2021 PT Coag (Bld) [Time] 18.8 s 11.7-14.9 [facility] Work Phone: INR in Blood by Coagulation assayon 11-23-2021 INR Coag (Bld) [Relative time] 2.7 {INR} [facility] Work Phone: Laboratory - Coagulationon 0 11-23-2021 PT Coag (PPP) [Time] 28.0 s 11.7-14.9 [facility] Work Phone: Laboratory - Coagulationon 0 11-22-2021 INR Coag (Bld) [Relative time] 3.8 {INR} [facility] Work Phone: Comment on above: Critical Value > 4.0 Whole blood prothrombin time on 11-22-2021 PT Coag (Bld) [Time] 42.8 s 11.7-14.9 [facility] Work Phone: INR in Blood by Coagulation assayon 11-21-2021 INR Coag (Bld) [Relative time] 3.9 {INR} [facility] Work Phone: Laboratory - Coagulationon 0 11-21-2021 PT Coag (PPP) [Time] 37.7 s 11.7-14.9 [facility] Work Phone: Whole blood prothrombin time on 11-21-2021 PT Coag (Bld) [Time] 45.5 s 11.7-14.9 [facility] Work Phone: INR in Blood by Coagulation assayon 11-14-2021 INR Coag (Bld) [Relative time] 3.1 {INR} [facility] Work Phone: Laboratory - Coagulationon 0 11-14-2021 PT Coag (PPP) [Time] 31.4 s 11.7-14.9 [facility] Work Phone: [phone] Laboratory - Coagulationon 0 11-08-2021 INR Coag (Bld) [Relative time] 2.5 {INR} [facility] Work Phone: Comment on above: Critical Value > 4.0 Whole blood prothrombin time on 11-08-2021 PT Coag (Bld) [Time] 29.0 s 11.7-14.9 [facility] Work Phone: Basophil percentageon 2021 Chloride [Moles/Vol] 106 mmol/L 98-107 [facility] Work Phone: Glucose [Mass/Vol] 100 mg/dL 74-106 [facility] Work Phone: Comment on above: Fasting Glucose resu lt from 100 to 125 mg/dL suggests IMPAIRED HOMEOSTASIS per A.D.A. criteria. Potassium [Moles/Vol] 3.7 mmol/L 3.5-5.1 [facility] Work Phone: Sodium [Moles/Vol] 140 mmol/L 136-145 [facility] Work Phone: WBC (Bld) [#/Vol] 8.8 10*3/uL 4.4-11.0 [facility] Work Phone: Blood erythrocytes count (nu mber/volume)on 11-04-2021 RBC (Bld) [#/Vol] 4.05 10*6/uL 4.6-6.2 [facility] Work Phone: Blood hemoglobin measurement (mass/volume)on 11-04-2021 Hemoglobin (Bld) [Mass/Vol] 11.1 g/dL 13.0-16.5 [facility] Work Phone: Blood platelet mean volumeon 11-04-2021 Platelet mean volume (Bld) [Entitic vol] 10.8 fL 6.2-12.0 [facility] Work Phone: Determination of erythrocyte mean corpuscular volume (MCV)on 11-04-2021 MCV (RBC) [Entitic vol] 86.9 fL 80-94 [facility] Work Phone: Hematocrit Auto (Bld) [Volum e fraction]on 11-04-2021 Hematocrit (Bld) [Volume fraction] 35.2 % 40-54 [facility] Work Phone: INR in Blood by Coagulation assayon 11-04-2021 INR Coag (Bld) [Relative time] 1.8 {INR} [facility] Work Phone: Laboratory - Chemistry and C hemistry - challengeon 11-04-2021 CO2 [Moles/Vol] 26.0 mmol/L 21.0-32.0 [facility] Work Phone: Urea nitrogen/Creatinine [Mass ratio] 18.3 mg/mg 10-20 [facility] Work Phone: Laboratory - Coagulationon 0 11-04-2021 PT Coag (PPP) [Time] 20.4 s 11.7-14.9 [facility] Work Phone: Laboratory - Hematology and Cell countson 11-04-2021 Erythrocyte distribution width (RBC) [Entitic vol] 48.1 fL 35.1-43.9 [facility] Work Phone: Erythrocyte distribution width (RBC) [Ratio] 15.0 % 11.6-14.6 [facility] Work Phone: MCH (RBC) [Entitic mass] 27.4 pg 27.0-32.0 [facility] Work Phone: MCHC Auto (RBC) [Mass/Vol]on 11-04-2021 MCHC (RBC) [Mass/Vol] 31.5 g/dL 32-36 [facility] Work Phone: No Panel Informationon 11-04 D-Dimer Quantitative (PE/DVT) 0.56 FEU/ug/m 0.27-0.49 [facility] Work Phone: Comment on above: D-Dimer ELEVATED (>0 .49): Additional studies and clinicalassessments are indicated to conclude diagnosis of:Deep Vein Thrombosis (DVT) or Pulmonary Embolism (PE) Estimated GFR (MDRD) Amer 155 mL/min >60 [facility] Work Phone: Comment on above: GFR Calc Estimated GFR (MDRD) Non-Af Amer 128 mL/min >60 [facility] Work Phone: Comment on above: Non- GFR Calc Troponin I High Sensitivity 11 pg/mL 3.0-78.0 [facility] Work Phone: Comment on above: Please Note: New Fadumo t Units and Gender Specific Reference Ranges. For more information see Policy Stat Procedure Romayor High Sensitivity Troponin (TNIH) and attachments. Platelets bldon 11-04-2021 Platelets (Bld) [#/Vol] 364 10*3/uL 150-450 [facility] Work Phone: Serum or plasma C reactive p rotein measurement (mass/volume)on 11-04-2021 CRP [Mass/Vol] 31.90 mg/L 0.0-3.0 [facility] Work Phone: Comment on above: C-Reactive Protein ( CRP) provides useful information for thediagnosis, therapy and monitoring of inflammatory processesand associated diseases. For the evaluation of Relative Riskfor Cardiovascular Disease, a High Sensitivity CRP (HSCRP)should be ordered. Serum or plasma calcium oral urement (mass/volume)on 11-04-2021 Calcium [Mass/Vol] 9.1 mg/dL 8.5-10.1 [facility] Work Phone: Serum or plasma creatinine m easurement (mass/volume)on 11-04-2021 Creatinine [Mass/Vol] 0.66 mg/dL 0.70-1.30 [facility] Work Phone: Comment on above: The validity of the calculated GFR & GFRAA in patients over 70 years has not been determined. Clinical correlation is essential. Serum or plasma urea nitroge n measurement (mass/volume)on 11-04-2021 Urea nitrogen [Mass/Vol] 12 mg/dL 7-18 [facility] Work Phone: Thin prep Papanicolaou smear with manual screeningon 11-04-2021 Thin prep Papanicolaou smear with manual screening 8 5-15 [facility] Work Phone: Complete Urinalysison 2021 Appearance (U) Clear Normal Clear [facility] Comment on above: Result Comment: . Performed By: #### C UA2 ####[facility] [address] [place], [place] Bacteria Moderate Abnormal Negative [facility] Comment on above: Result Comment: . Performed By: #### C UA2 ####[facility] [address] [place], [place] Bilirubin,Urine Negative Normal Negative [facility] Comment on above: Result Comment: . Performed By: #### C UA2 ####[facility] [address] [place], [place] Cast, Hyaline Negative Normal Negative [facility] Comment on above: Result Comment: . Performed By: #### C UA2 ####[facility] [address] [place], [place] Color (U) Yellow Normal Lt. Yellow [facility] Comment on above: Result Comment: . Performed By: #### C UA2 ####[facility] [address] [place], [place] Glucose Ql (U) Normal Normal Normal (<70) [facility] Comment on above: Result Comment: . Performed By: #### C UA2 ####[facility] [address] [place], [place] Ketone,Urine Negative Normal Negative [facility] Comment on above: Result Comment: . Performed By: #### C UA2 ####[facility] [address] [place], [place] Leukocytes,Urine Negative Normal Negative [facility] Comment on above: Result Comment: . Performed By: #### C UA2 ####[facility] [address] [place], [place] Mucous Threads Few Normal Negative [facility] Comment on above: Result Comment: . Performed By: #### C UA2 ####[facility] [address] [place], [place] Nitrites,Urine Negative Normal Negative [facility] Comment on above: Result Comment: . Performed By: #### C UA2 ####[facility] [employer] [id number] [place] [address] Occult Blood,Urine 0.1 mg/dL Abnormal Negative [facility] Comment on above: Result Comment: . Performed By: #### C UA2 ####[address] pH,Urine 5.5 Normal 5.0-8.0 [facility] Comment on above: Result Comment: . Performed By: #### C UA2 ####[address] Protein (U) [Mass/Vol] 10 mg/dL Abnormal Negative [facility] Comment on above: Result Comment: . Performed By: #### C UA2 ####[address] RBC, Urine 26 - 50 Abnormal 0-2 [facility] Comment on above: Result Comment: . Performed By: #### C UA2 ####[address] Specific [place],Urine 1.023 Normal 1.005 - 1.030 [facility] Comment on above: Result Comment: . Performed By: #### C UA2 ####[address] Squamous Epithelial Negative Normal 3-5 [facility] Comment on above: Result Comment: . Performed By: #### C UA2 ####[address] Urobilinogen,Urine Normal Normal Normal (0-1) [facility] Comment on above: Result Comment: . Performed By: #### C UA2 ####[address] WBC, Urine 0 - 2 Normal 0-5 [facility] Comment on above: Result Comment: . Performed By: #### C UA2 ####[address] Urinalysison 11-01-2021 Appearance (U) Clear Clear NA [facility] Comment on above: . Bacteria, UA [...] Protein (U) [Mass/Vol] 10 mg/dL Abnormal Negative [facility] Comment on above: . RBC, UA 26-50 Abnormal 0 - 2 /[HPF] [facility] Comment on above: . Specific [place], Urine 1.023 [facility] Comment on above: . Squam Epithel, UA Negative 3 - 5 /[HPF] [facility] Comment on above: . Urobilinogen, Urine Normal Normal ( 0-1) mg/dL [facility] Comment on above: . WBC, UA 0-2 0 - 5 /[HPF] [facility] Comment on above: . Test Performed by [facility], [address] [place] [address] [facility] Basic Metabolic Panelon 06-2 Anion gap [Moles/Vol] 6 mmol/L Normal 3-13 [facility] Comment on above: Performed By: #### P T/AP, TROPN, BMP3, HEMDF #### [facility] [address] [place] [address] Calcium [Mass/Vol] 9.1 mg/dL Normal 8.4-10.4 [facility] Comment on above: Performed By: #### P T/AP, TROPN, BMP3, HEMDF #### [facility] [address] [place] [address] CO2 [Moles/Vol] 28 mmol/L Normal 22-30 [facility] Comment on above: Performed By: #### P T/AP, TROPN, BMP3, HEMDF #### [facility] [address] [place], [place] Glucose [Mass/Vol] 120 mg/dL High 70-100 [facility] Comment on above: Performed By: #### P T/AP, TROPN, BMP3, HEMDF #### [facility] [address] [place], [place] Urea nitrogen [Mass/Vol] 17 mg/dL Normal 7-17 [facility] Comment on above: Performed By: #### P T/AP, TROPN, BMP3, HEMDF #### [place] [address] [place], [place] Creatinine [Mass/Vol] 0.65 mg/dL Normal 0.52-1.25 [facility] Comment on above: Performed By: #### P T/AP, TROPN, BMP3, HEMDF #### [place] [address] [address] [place], [place] eGFR OTHER > 90.0 Normal >60 [facility] Comment on above: Result Comment: KDIG [...] #### P T/AP, TROPN, BMP3, HEMDF #### [place] [address] [address] [place], [place] GFR/1.73 sq M.predicted among blacks MDRD (S/P/Bld) [Vol rate/Area] mL/min/{1.73_m2} Normal >60 [facility] Comment on above: Performed By: #### P T/AP, TROPN, BMP3, HEMDF #### [facility] [address] [place], [place] Potassium [Moles/Vol] 3.8 mmol/L Normal 3.5-5.1 [facility] Comment on above: Performed By: #### P T/AP, TROPN, BMP3, HEMDF #### [facility] [address] [place], [place] Chloride [Moles/Vol] 101 mmol/L Normal 98-107 [facility] Comment on above: Performed By: #### P T/AP, TROPN, BMP3, HEMDF #### [facility] [address] [place], [place] Sodium [Moles/Vol] 134 mmol/L Low 135-145 [facility] Comment on above: Performed By: #### P T/AP, TROPN, BMP3, HEMDF #### [facility] [address] [place], [place] Anion gap [Moles/Vol] 6 mmol/L 3 - 13 mmol/L [facility] Calcium [Mass/Vol] 9.1 mg/dL 8.4 - 10. 4 mg/dL [facility] Chloride [Moles/Vol] 101 mmol/L 98 - 10 7 mmol/L [facility] CO2 [Moles/Vol] 28 mmol/L 22 - 30 mmol/L [facility] Creatinine [Mass/Vol] 0.65 mg/dL 0.52 - 1.25 mg/dL [facility] EGFR IF NonAfrican Bruneian >90.0 >60 mL/min [facility] Comment on above: KDIGO guidelines [...] 17 mg/dL [facility] Test Performed by [id number] [place] [address] LAB [facility] CBC with Auto Differentialon 10-31-2021 [...] - 10.7 10*3/uL [facility] Test Performed by [facility], [address] [place] [id number] [place] [address] LAB [facility] CR Abdomen APon 10-31-2021 CR Abdomen AP [facility]: [id number] Radiology ACCESSION EXAM DATE/TIME PROCEDURE ORDERING PROVIDER [id number] 10/31/2021 20:36 EDT CR Abdomen AP [id number] -MYRON DURAN CPT code 62395 Reason For Exam (CR Abdomen AP) svp marketing shunt, 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 CHEST [...] Transcribed Date and Time: 10/31/2021 8:49 Normal [facility] CR Chest Portableon 11-01-19 CR Chest Portable Patient Name: ANDREW SIFUENTES Diagnostic Radiology ACCESSION EXAM DATE/TIME PROCEDURE ORDERING PROVIDER [id number] 10/31/2021 20:36 EDT CR Chest Portable [id number] MYRON GALINDO CPT code 79819 Reason For Exam (CR Chest Portable) AMS [...] Transcribed Date and Time: 10/31/2021 8:49 Normal [facility] CT HEAD WO CONTRASTon 2021 Patient Name: ANDREW LARSEN Computed Tomography ACCESSION EXAM DATE/TIME PROCEDURE ORDERING PROVIDER [id number] 10/31/2021 20:[address] Head or Brain w/o [id number] -DURAN, MYRON Contrast CPT code 33085 Reason For Exam (CT Head or Brain w/o Contrast) AMS, previous DRILL OPERATOR PNEUMATIC shunt Report Examination: CT Head Clinical Information: AMS, previous DRILL OPERATOR PNEUMATIC shunt Comparison: 10/26/2021, MRI 10/27/2021 Findings: Serial [...] J Transcribed Date and Time: 10/31/2021 8:54 [facility] Carla Wong MD - 10/31/2021 Patient Name: ANDREW SIFUENTES Computed Tomography ACCESSION EXAM DATE/TIME PROCEDURE ORDERING PROVIDER [id number] 10/31/2021 20:[address] Head or Brain w/o [id number] -DURAN, MYRON Contrast CPT code 38676 Reason For Exam (CT Head or Brain w/o Contrast) AMS, previous DRILL OPERATOR PNEUMATIC shunt Report Examination: CT Head Clinical Information: AMS, previous DRILL OPERATOR PNEUMATIC shunt Comparison: 10/26/2021, MRI 10/27/2021 Findings: Serial [...] Brain w/o Contrast [facility]: [id number] Computed Tomography ACCESSION EXAM DATE/TIME PROCEDURE ORDERING PROVIDER [id number] 10/31/2021 20:[address] Head or Brain w/o [id number] -DURAN, MYRON Contrast CPT code 95338 Reason For Exam (CT Head or Brain w/o Contrast) AMS, previous DRILL OPERATOR PNEUMATIC shunt Report Examination: CT Head Clinical Information: AMS, previous DRILL OPERATOR PNEUMATIC shunt Comparison: 10/26/2021, MRI 10/27/2021 Findings: Serial [...] 8:54 pm Dictating Physician: MD ESTEE, CARLA Liriano Date and Time: 10/31/2021 8:58 pm Signed by: MD ESTEE, CARLA Machuca Transcribed Date and Time: 10/31/2021 8:54 Normal [facility] ED Provider Noteon ED Provider Note Emergency Department Encounter [facility] Patient: Andrew Sifuentes : 1950 [...] [employer] Dante Kim MD 10/31/21 2211 Normal [facility] ED Provider Note [facility] EMERGENCY DEPARTMENT ENCOUNTER Pt Name: Andrew Sifuentes Birthdate 1950 Date of evaluation: 10/31/2021 Provider: Myron Duran MD CHIEF COMPLAINT Chief Complaint Patient presents with ? Altered Mental Status Pt presents to ED via [facility] for complaint listed. Pt is from [place]. Pt's LKW was 1000 hours [...] have a history of hydrocephalus with a DRILL OPERATOR PNEUMATIC shunt. 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 REVIEW OF [...] (HCC) ? Kidney stone ? Neuropathy ? DRILL OPERATOR PNEUMATIC (ventriculoperitoneal) shunt status SURGICAL HISTORY Past Surgical [...] of Transportati (more content not included)... 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1950 Requested By: MYRON DURAN Order Number: [id number] Reading MD: Dante Kim Measurements Intervals [place] Rate: 91 P: 41 OR: 154 QRS: 50 QRSD: 147 T: 8 QT: 385 QTc: 474 Interpretive Statements Sinus rhythm Right bundle branch block Electronically Signed On 10-31-2021 20:36:25 EDT by Dante Kim [facility] Dante Kim M D - 10/31/2021 [facility] [employer] [facility] Test Date: 2021-10-31 Pat Name: ANDREW SIFUENTES Department: [facility] Room: 40 Gender: M 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1950 Requested By: MYRON DURAN Order Number: [id number] Reading MD: Dante Kim Measurements Intervals [place] Rate: 91 P: 41 OR: 154 QRS: 50 QRSD: 147 T: 8 QT: 385 QTc: 474 Interpretive Statements Sinus rhythm Right bundle branch block Electronically Signed On 10-31-2021 20:36:25 EDT by Dante Kim [facility] Work Phone: EKG 12 Lead - Chest PainOrde red By: Dante Kim on 10-31-2021 [facility] Work Phone: Hemogram w/ Autodiffon 10-31 Abs Baso Cnt 0.1 10*3/uL Normal 0.0-0.2 [facility] Comment on above: Performed By: #### P T/AP, TROPN, BMP3, HEMDF #### [facility] [employer] [address] [place] [address] Abs Neutrophile Cnt 6.0 10*3/uL Normal 1.8-7.0 [facility] [employer] [facility] Comment on above: Performed By: #### P T/AP, TROPN, BMP3, HEMDF #### [facility] [employer] [facility] [address] [place] [address] Basophils/100 WBC (Bld) 1.1 % Normal 0.0-2.0 [facility] Comment on above: Performed By: #### P T/AP, TROPN, BMP3, HEMDF #### [facility] [employer] [facility] [address] [place] [address] Eosinophils (Bld) [#/Vol] 0.2 10*3/uL Normal 0.0-0.5 [facility] Comment on above: Performed By: #### P T/AP, TROPN, BMP3, HEMDF #### [place] [address] [address] [place], [place] Eosinophils/100 WBC (Bld) 2.3 % Normal 1.0-6.0 [facility] Comment on above: Performed By: #### P T/AP, TROPN, BMP3, HEMDF #### [place] [address] [address] [place], [place] Erythrocyte distribution width (RBC) [Ratio] 17.2 % High 11.5-14.5 [facility] Comment on above: Performed By: #### P T/AP, TROPN, BMP3, HEMDF #### [place] [address] [address] [place], [place] Granulocytes/100 WBC (Bld) 61.8 % Normal 40.0-80.0 [facility] Comment on above: Performed By: #### P T/AP, TROPN, BMP3, HEMDF #### [place] [address] [address] [place], [place] Hematocrit (Bld) [Volume fraction] 35.0 % Low 40.0-52.0 [facility] Comment on above: Performed By: #### P T/AP, TROPN, BMP3, HEMDF #### [place] [address] [address] [place], [place] Hemoglobin (Bld) [Mass/Vol] 11.3 g/dL Low 13.0-18.0 [facility] Comment on above: Performed By: #### P T/AP, TROPN, BMP3, HEMDF #### [place] [address] [address] [place], [place] Lymphocytes (Bld) [#/Vol] 2.8 10*3/uL Normal 1.0-4.3 [facility] Comment on above: Performed By: #### P T/AP, TROPN, BMP3, HEMDF #### [place] [address] [place], [place] Lymphocytes/100 WBC (Bld) 29.2 % Normal 20.0-40.0 [facility] Comment on above: Performed By: #### P T/AP, TROPN, BMP3, HEMDF #### [address] MCH (RBC) [Entitic mass] 27.5 pg Normal 26.0-34.0 [facility] Comment on above: Performed By: #### P T/AP, TROPN, BMP3, HEMDF #### [address] MCHC 32.3 % Normal 32.0-36.0 [facility] Comment on above: Performed By: #### P T/AP, TROPN, BMP3, HEMDF #### [address] MCV (RBC) [Entitic vol] 85.0 fL Normal 80.0-98.0 [facility] Comment on above: Performed By: #### P T/AP, TROPN, BMP3, HEMDF #### [address] Monocytes (Bld) [#/Vol] 0.5 10*3/uL Normal 0.0-0.8 [facility] Comment on above: Performed By: #### P T/AP, TROPN, BMP3, HEMDF #### [address] Monocytes/100 WBC (Bld) 5.6 % Normal 2.0-10.0 [facility] Comment on above: Performed By: #### P T/AP, TROPN, BMP3, HEMDF #### [address] Platelet mean volume (Bld) [Entitic vol] 8.6 fL Normal 7.4-12.4 [facility] Comment on above: Result Comment: MPV is a calculated measurement using platelet volume ratio. Performed By: #### P T/AP, TROPN, BMP3, HEMDF #### [address] Platelets (Bld) [#/Vol] 348 10*3/uL Normal 140-440 [facility] Comment on above: Performed By: #### P T/AP, TROPN, BMP3, HEMDF #### [facility] [address] [place], [place] RBC (Bld) [#/Vol] 4.12 10*6/uL Low 4.40-5.90 [facility] Comment on above: Performed By: #### P T/AP, TROPN, BMP3, HEMDF #### [facility] [address] [place], [place] WBC (Bld) [#/Vol] 9.7 10*3/uL Normal 3.6-10.7 [facility] Comment on above: Performed By: #### P T/AP, TROPN, BMP3, HEMDF #### [facility] [address] [place], [place] Laboratory - Coagulationon 0 10-31-2021 INR Coag (Bld) [Relative time] 2.0 {INR} [facility] Work Phone: Comment on above: Critical Value > 4.0 No Panel Informationon 10-31 Radiology Study observation (narrative) [facility] Work Phone: PROTIME/INR & PTTon 11-01-19 aPTT Coag (Bld) [Time] 39.2 s High 20.0 - 30.5 s [facility] Comment on above: NOTE: The therapeuti c time for Heparin anticoagulation, based on Xa activity inhibition, is an APTT of 46-80 seconds. INR Coag (Bld) [Relative time] 1.9 {INR} High [facility] Comment on above: Recommended Anticoag [...] Interpretation and review of laboratory results Abnormal [facility] PT Coag (PPP) [Time] 19.8 s High 9.0 - 12.0 s [facility] Comment on above: . Test Performed by [facility], [address] [place] [id number] [place] [address] - [facility] Protime AND APTTon aPTT Coag (Bld) [Time] 39.2 s High 20.0-30.5 [facility] Comment on above: Result Comment: NOTE : The therapeutic time for Heparin anticoagulation, based on Xa activity inhibition, is an APTT of 46-80 seconds. Performed By: #### P T/AP, TROPN, BMP3, HEMDF #### [address] INR 1.9 High 0.9-1.1 [facility] Comment on above: Result Comment: Harry [...] #### P T/AP, TROPN, BMP3, HEMDF #### [address] PT Coag (PPP) [Time] 19.8 s High 9.0-12.0 [facility] Comment on above: Result Comment: . Performed By: #### P T/AP, TROPN, BMP3, HEMDF #### [address] Troponin Ion 10-31-2021 Troponin I.cardiac [Mass/Vol] ng/mL Normal 0.000-0.034 [facility] Comment on above: Result Comment: . Performed By: #### P T/AP, TROPN, BMP3, HEMDF #### [address] Troponin x1on 10-31-2021 Troponin I.cardiac [Mass/Vol] ng/mL 0.000 - 0.034 ng/mL [facility] Comment on above: . Test Performed by [facility], [address] [place] [id number] [facility] Whole blood prothrombin time on 10-31-2021 PT Coag (Bld) [Time] 23.7 s 11.7-14.9 [facility] Work Phone: XR ABDOMEN (KUB) (SINGLE AP VIEW)on 10-31-2021 Patient Name: ANDREW SIFUENTES Diagnostic Radiology ACCESSION EXAM DATE/TIME PROCEDURE ORDERING PROVIDER [id number] 10/31/2021 20:36 EDT CR Abdomen AP [id number] -MYRON DURAN CPT code 51098 Reason For Exam (CR Abdomen AP) svp marketing shunt, 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 CHEST [...] WENDELL Transcribed Date and Time: 10/31/2021 8:49 [facility] Huang Reynoso MD - 10/31/2021 Patient Name: ANDREW SIFUENTES Diagnostic Radiology ACCESSION EXAM DATE/TIME PROCEDURE ORDERING PROVIDER [id number] 10/31/2021 20:36 EDT CR Abdomen AP [id number] MYRON GALINDO CPT code 42506 Reason For Exam (CR Abdomen AP) svp marketing shunt, 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 CHEST [...] Radiology ACCESSION EXAM DATE/TIME PROCEDURE ORDERING PROVIDER [id number] 10/31/2021 20:36 EDT CR Chest Portable [id number] MYRON GALINDO CPT code 81080 Reason For Exam (CR Chest Portable) AMS [...] WENDELL Transcribed Date and Time: 10/31/2021 8:49 [facility] Huang Reynoso MD - 10/31/2021 Patient Name: ANDREW SIFUENTES Diagnostic Radiology ACCESSION EXAM DATE/TIME PROCEDURE ORDERING PROVIDER [id number] 10/31/2021 20:36 EDT CR Chest Portable [id number] -MYRON DURAN CPT code 40014 Reason For Exam (CR Chest Portable) AMS [...] CHEST PORTABLEOrdered By: Huang Reynoso on 10-31-2021 [facility] Work Phone: Lupus Anticoagulanton 2021 DRVVT Confirmation Test Not Applicable Negative ratio [facility] Work Phone: dRVVT Screen 38 [facility] Work Phone: Hex Phosph Neut Test Not Applicable Negative NA [facility] Work Phone: Interpretation and review of laboratory [...] has not already been performed. Performed by [facility], [address] [place] [id number] [email or web address], Quiana Castor MD - Lab. Director Platelet Neutralization Not Applicable Negative NA [facility] Work Phone: PTT-D Heparin Neutralized 48 [facility] Work Phone: PTT-LA 55 High [facility] Work Phone: Reptilase Tm 17.6 <=21.9 sec [facility] Work Phone: Thrombin Time 25.3 High [facility] Work Phone: [facility] Work Phone: Lupus Anticoagulant Reflexiv e Panelon 10-29-2021 aPTT Coag (Bld) [Time] 55 s High 32-48 [facility] Comment on above: Performed By: #### C OVAG #### [facility] [address] [place] [address] aPTT Coag (Bld) [Time] 48 s Normal 32-48 [facility] Comment on above: Performed By: #### C OVAG #### [facility] [address] [place] [address] DRVVT 1:1 Mix Not Applicable Normal 33-44 [facility] Work Phone: Comment on above: Performed By: #### C OVAG #### [facility] [address] [place] [address] dRVVT Confirmation Not Applicable Normal Negative [facility] Comment on above: Performed By: #### C OVAG #### [facility] [address] [place] [address] dRVVT Screen 38 sec Normal 33-44 [facility] Comment on above: Performed By: #### C OVAG #### [facility] [address] [place] [address] Hexagonal Phospholipid Neutral Reflex Not Applicable Normal Negative [facility] Comment on above: Performed By: #### C OVAG #### [facility] [address] [place] [address] Lupus Anticoagulant Interpretation See Note Normal [facility] Comment on above: Result Comment: Lupu [...] has not already been performed. Performed by [facility], [address] [facility] [place] [address] [email or web address], Quiana Castro MD - Lab. Director Performed By: #### C OVAG #### [facility] [address] [place] [address] Platelet Neutralization (PTT-D, Confirm) Not Applicable Normal Negative [facility] Comment on above: Performed By: #### C OVAG #### [facility] [address] [place] [address] PT Coag (PPP) [Time] 14.7 s Normal 12.0-15.5 [facility] Work Phone: Comment on above: Performed By: #### C OVAG #### [place] [address] [place] [address] PTT-D 1:1 Mix Not Applicable Normal 32-48 [facility] Work Phone: Comment on above: Performed By: #### C OVAG #### [facility] [address] [place] [address] Reptilase Time 17.6 sec Normal <=21.9 [facility] Comment on above: Performed By: #### C OVAG #### [facility] [address] [place] [address] Thrombin Time 25.3 sec High 14.7-19.5 [facility] Comment on above: Performed By: #### C OVAG #### [facility] [address] [place] [address] POCT COVID-19, Antigenon SARS-CoV-2 Nucleocapsid Antigen Negative Negative [facility] Comment on above: A negative result does not rule out the possibility of SARS-CoV-2 infection. NAAT-based methods should be considered for symptomatic patients presenting greater than seven days after onset of symptoms. Method: Lateral flow immunoassay. Fact sheets for healthcare providers and patients can be found at the following sites: https://www.fda.gov/media/417630/download https://www.fda.gov/media/442758/download Test Performed by [facility], [address] [place] [address] [facility] LAB [facility] Prothrombin Timeon INR 2.7 High 0.9-1.1 [facility] Comment on above: Result Comment: Harry [...] Infarction Performed By: #### P T #### [facility] [address] [facility] [place] [address] PT Coag (PPP) [Time] 27.4 s High 9.0-12.0 [facility] Comment on above: Result Comment: . Performed By: #### P T #### [facility] [address] [place] [address] Protime-INRon 10-29-2021 INR Coag (Bld) [Relative time] 2.7 {INR} High [facility] Work Phone: Comment on [...] Interpretation and review of laboratory results Abnormal [facility] Work Phone: PT Coag (PPP) [Time] 27.4 s High 9.0 - 12.0 s [facility] Work Phone: Comment on above: . Test Performed by [facility], [address] [place] [address] [facility] LAB [facility] Work Phone: SARS-CoV-2 Antigenon 022 SARS-CoV-2 Antigen Negative Normal Negative [facility] Comment on above: Result Comment: A negative result does not rule out the possibility of SARS-CoV-2 infection. NAAT-based methods should be considered for symptomatic patients presenting greater than seven days after onset of symptoms. Method: Lateral flow immunoassay. Fact sheets for healthcare providers and patients can be found at the following sites: https://www.39 Health.gov/media/387097/download https://www.39 [employer].gov/media/043391/download Performed By: #### C OVAG #### [facility] [address] [place] [address] [facility] 10-28-2021 Hematocrit (Bld) [Volume fraction] 33.4 % Low 40.0 - 52.0 % [facility] Phone: Hemoglobin (Bld) [Mass/Vol] 11.0 g/dL Low 13.0 - 18.0 g/dL [facility] Phone: Interpretation and review of laboratory results Abnormal [facility] Phone: MCH (RBC) [Entitic mass] 27.8 pg 26.0 - 34.0 pg [facility] Phone: MCHC (RBC) [Mass/Vol] 32.8 % 32.0 - 36.0 % [facility] Phone: MCV (RBC) [Entitic vol] 84.8 fL 80.0 - 98.0 fL [facility] Phone: Platelet distribution width (Bld) [Ratio] 17.1 % High 11.5 - 14.5 % [facility] Phone: Platelet mean volume (Bld) [Entitic vol] 8.3 fL 7.4 - 12.4 fL [facility] Phone: Comment on above: MPV is a calculated measurement using platelet volume ratio. Platelets (Bld) [#/Vol] 344 10*3/uL 140 - 440 10*3/uL [employer] Work Phone: RBC (Bld) [#/Vol] 3.94 10*6/uL Low 4.40 - 5.9 0 10*6/uL [facility] Work Phone: WBC (Bld) [#/Vol] 10.0 10*3/uL 3.6 - 10.7 10*3/uL [facility] Work Phone: Test Performed by [facility], [address] [place], [place], [place] [id number] [place] [address] LAB [facility] Work Phone: Comp Metabolic Panelon 10-28 ALP [Catalytic activity/Vol] 103 U/L Normal 38-126 [facility] Comment on above: Performed By: #### C A19O, LUPUS #### The performing lab is in the report. #### NSEO #### [facility] #### HEMDF, LDH3, BMP3, MG3, PT, CEA2 #### [facility] [address] [place] [address] #### B2GPM, B2GPA, B2GPG #### [address] [address] ALT [Catalytic activity/Vol] 26 U/L Normal 0-49 [facility] Comment on above: Result Comment: The ALT test is performed by an updated assay method. Please note that the reference intervals have been changed and are now sex specific. Performed By: #### C A19O, LUPUS #### The performing lab is in the report. #### NSEO #### [facility] #### HEMDF, LDH3, BMP3, MG3, PT, CEA2 #### [facility] [address] [place] [address] #### B2GPM, B2GPA, B2GPG #### [address] [address] AST [Catalytic activity/Vol] 24 U/L Normal 15-46 [facility] Comment on above: Performed By: #### C A19O, LUPUS #### The performing lab is in the report. #### NSEO #### [facility] #### HEMDF, LDH3, BMP3, MG3, PT, CEA2 #### [facility] [address] [place] [address] #### B2GPM, B2GPA, B2GPG #### [address] Calcium [Mass/Vol] 9.1 mg/dL Normal 8.4-10.4 [facility] Comment on above: Performed By: #### C A19O, LUPUS #### The performing lab is in the report. #### NSEO #### [facility] #### HEMDF, LDH3, BMP3, MG3, PT, CEA2 #### [facility] [address] [place] [address] #### B2GPM, B2GPA, B2GPG #### [address] Glucose [Mass/Vol] 117 mg/dL High 70-100 [facility] Comment on above: Performed By: #### C A19O, LUPUS #### The performing lab is in the report. #### NSEO #### [facility] #### HEMDF, LDH3, BMP3, MG3, PT, CEA2 #### [facility] [address] [place] [address] #### B2GPM, B2GPA, B2GPG #### [address] Urea nitrogen [Mass/Vol] 16 mg/dL Normal 7-17 [facility] Comment on above: Performed By: #### C A19O, LUPUS #### The performing lab is in the report. #### NSEO #### [facility] #### HEMDF, LDH3, BMP3, MG3, PT, CEA2 #### [facility] [address] [place] [address] #### B2GPM, B2GPA, B2GPG #### [address] Anion gap [Moles/Vol] 5 mmol/L Normal 3-13 [facility] Comment on above: Performed By: #### C A19O, LUPUS #### The performing lab is in the report. #### NSEO #### [facility] #### HEMDF, LDH3, BMP3, MG3, PT, CEA2 #### [place] [address] [place] [address] #### B2GPM, B2GPA, B2GPG #### [address] [address] Bilirubin [Mass/Vol] 0.4 mg/dL Normal 0.2-1.3 [facility] Comment on above: Performed By: #### C A19O, LUPUS #### The performing lab is in the report. #### NSEO #### [facility] #### HEMDF, LDH3, BMP3, MG3, PT, CEA2 #### [address] [place] [address] #### B2GPM, B2GPA, B2GPG #### [address] [phone] CO2 [Moles/Vol] 29 mmol/L Normal 22-30 [facility] Comment on above: Performed By: #### C A19O, LUPUS #### The performing lab is in the report. #### NSEO #### [facility] #### HEMDF, LDH3, BMP3, MG3, PT, CEA2 #### [address] [place] [address] #### B2GPM, B2GPA, B2GPG #### [address] [address] Creatinine [Mass/Vol] 0.71 mg/dL Normal 0.52-1.25 [facility] Comment on above: Performed By: #### C A19O, LUPUS #### The performing lab is in the report. #### NSEO #### [facility] #### HEMDF, LDH3, BMP3, MG3, PT, CEA2 #### [address] [place] [address] #### B2GPM, B2GPA, B2GPG #### [address] eGFR OTHER > 90.0 Normal >60 [facility] Comment on above: Result Comment: KDIG [...] LDH3, BMP3, MG3, PT, CEA2 #### [address] [place] #### B2GPM, B2GPA, B2GPG #### [address] [address] GFR/1.73 sq M.predicted among blacks MDRD (S/P/Bld) [Vol rate/Area] mL/min/{1.73_m2} Normal >60 [facility] Comment on above: Performed By: #### C A19O, LUPUS #### The performing lab is in the report. #### NSEO #### [facility] #### HEMDF, LDH3, BMP3, MG3, PT, CEA2 #### [facility] [address] [place] [address] #### B2GPM, B2GPA, B2GPG #### [address] Protein [Mass/Vol] 7.1 g/dL Normal 6.3-8.2 [facility] Comment on above: Performed By: #### C A19O, LUPUS #### The performing lab is in the report. #### NSEO #### [facility] #### HEMDF, LDH3, BMP3, MG3, PT, CEA2 #### [facility] [address] [place] [address] #### B2GPM, B2GPA, B2GPG #### [address] Potassium [Moles/Vol] 3.5 mmol/L Normal 3.5-5.1 [facility] Comment on above: Performed By: #### C A19O, LUPUS #### The performing lab is in the report. #### NSEO #### [facility] #### HEMDF, LDH3, BMP3, MG3, PT, CEA2 #### [place] [address] [place] [address] #### B2GPM, B2GPA, B2GPG #### [address] Sodium [Moles/Vol] 138 mmol/L Normal 135-145 [facility] Comment on above: Performed By: #### C A19O, LUPUS #### The performing lab is in the report. #### NSEO #### [facility] #### HEMDF, LDH3, BMP3, MG3, PT, CEA2 #### [place] [address] [place] [address] #### B2GPM, B2GPA, B2GPG #### [address] Albumin [Mass/Vol] 3.7 g/dL Normal 3.5-5.0 [facility] Comment on above: Performed By: #### C A19O, LUPUS #### The performing lab is in the report. #### NSEO #### [facility] #### HEMDF, LDH3, BMP3, MG3, PT, CEA2 #### [facility] [address] [place] [address] #### B2GPM, B2GPA, B2GPG #### [facility] [address] [place], [place] Chloride [Moles/Vol] 104 mmol/L Normal 98-107 [facility] Comment on above: Performed By: #### C A19O, LUPUS #### The performing lab is in the report. #### NSEO #### [facility] #### HEMDF, LDH3, BMP3, MG3, PT, CEA2 #### [facility] [address] [place] [address] #### B2GPM, B2GPA, B2GPG #### [address] Comprehensive Metabolic Pane kiel 10-28-2021 Albumin [Mass/Vol] 3.7 g/dL 3.5 - 5.0 g/dL [facility] Work Phone: [phone] ALP (Bld) [Catalytic activity/Vol] 103 U/L 38 - 126 U/L [facility] Work Phone: [phone] ALT [Catalytic activity/Vol] 26 U/L 0 - 49 U/L [facility] Work Phone: [phone] Comment on above: The ALT test is perf ormed by an updated assay method. Please note that the reference intervals have been changed and are now sex specific. Anion gap [Moles/Vol] 5 mmol/L 3 - 13 mmol/L [facility] Work Phone: [phone] AST [Catalytic activity/Vol] 24 U/L 15 - 46 U/L [facility] Work Phone: [phone] Bilirubin [Mass/Vol] 0.4 mg/dL 0.2 - 1 .3 mg/dL [facility] Work Phone: [phone] Calcium [Mass/Vol] 9.1 mg/dL 8.4 - 10. 4 mg/dL [facility] Work Phone: [phone] Chloride [Moles/Vol] 104 mmol/L 98 - 10 7 mmol/L [facility] Work Phone: [phone] CO2 [Moles/Vol] 29 mmol/L 22 - 30 mmol/L [facility] Work Phone: [phone] Creatinine [Mass/Vol] 0.71 mg/dL 0.52 - 1.25 mg/dL [facility] Work Phone: [phone] EGFR IF NonAfrican [place]ian >90.0 >60 mL/min [facility] Work Phone: [phone] Comment on above: KDIGO guidelines pro [...] fraction] 7.1 g/dL 6.3 - 8.2 g/dL [facility] Work Phone: [phone] GFR/1.73 sq M.predicted among blacks MDRD (S/P/Bld) [Vol rate/Area] mL/min/{1.73_m2} >60 mL/min [facility] Work Phone: [phone] Glucose [Mass/Vol] 117 mg/dL High 70 - 100 mg/dL [facility] Work Phone: [phone] Interpretation and review of laboratory results Abnormal [facility] Work Phone: [phone] Potassium [Moles/Vol] 3.5 mmol/L 3.5 - 5.1 mmol/L [facility] Work Phone: [phone] Sodium [Moles/Vol] 138 mmol/L 135 - 145 mmol/L [facility] Work Phone: Urea nitrogen (BldV) [Mass/Vol] 16 mg/dL 7 - 17 mg/dL [facility] Work Phone: Test Performed by [facility], [address] [place], [place] [address] [facility] Work Phone: Hemogramon 10-28-2021 Erythrocyte distribution width (RBC) [Ratio] 17.1 % High 11.5-14.5 [facility] Comment on above: Performed By: #### C A19O, LUPUS #### The performing lab is in the report. #### NSEO #### [facility] #### HEMDF, LDH3, BMP3, MG3, PT, CEA2 #### [address] [place] [address] #### B2GPM, B2GPA, B2GPG #### [address] Hematocrit (Bld) [Volume fraction] 33.4 % Low 40.0-52.0 [facility] Comment on above: Performed By: #### C A19O, LUPUS #### The performing lab is in the report. #### NSEO #### [facility] #### HEMDF, LDH3, BMP3, MG3, PT, CEA2 #### [address] [place] [address] #### B2GPM, B2GPA, B2GPG #### [address] Hemoglobin (Bld) [Mass/Vol] 11.0 g/dL Low 13.0-18.0 [facility] Comment on above: Performed By: #### C A19O, LUPUS #### The performing lab is in the report. #### NSEO #### [facility] #### HEMDF, LDH3, BMP3, MG3, PT, CEA2 #### [address] [place] [address] #### B2GPM, B2GPA, B2GPG #### [address] MCH (RBC) [Entitic mass] 27.8 pg Normal 26.0-34.0 [facility] Comment on above: Performed By: #### C A19O, LUPUS #### The performing lab is in the report. #### NSEO #### [facility] #### HEMDF, LDH3, BMP3, MG3, PT, CEA2 #### [facility] [address] [place], [place] #### B2GPM, B2GPA, B2GPG #### [address] MCHC 32.8 % Normal 32.0-36.0 [facility] Comment on above: Performed By: #### C A19O, LUPUS #### The performing lab is in the report. #### NSEO #### [facility] #### HEMDF, LDH3, BMP3, MG3, PT, CEA2 #### [address] [place], [place] #### B2GPM, B2GPA, B2GPG #### [address] MCV (RBC) [Entitic vol] 84.8 fL Normal 80.0-98.0 [facility] Comment on above: Performed By: #### C A19O, LUPUS #### The performing lab is in the report. #### NSEO #### [facility] #### HEMDF, LDH3, BMP3, MG3, PT, CEA2 #### [address] [place], [place] #### B2GPM, B2GPA, B2GPG #### [address] Platelet mean volume (Bld) [Entitic vol] 8.3 fL Normal 7.4-12.4 [facility] Comment on above: Result Comment: MPV is a calculated measurement using platelet volume ratio. Performed By: #### C A19O, LUPUS #### The performing lab is in the report. #### NSEO #### [facility] #### HEMDF, LDH3, BMP3, MG3, PT, CEA2 #### [place] [address] [place] [address] #### B2GPM, B2GPA, B2GPG #### [address] [address] Platelets (Bld) [#/Vol] 344 10*3/uL Normal 140-440 [facility] Comment on above: Performed By: #### C A19O, LUPUS #### The performing lab is in the report. #### NSEO #### [facility] #### HEMDF, LDH3, BMP3, MG3, PT, CEA2 #### [address] [place] [address] #### B2GPM, B2GPA, B2GPG #### [address] RBC (Bld) [#/Vol] 3.94 10*6/uL Low 4.40-5.90 [facility] Comment on above: Performed By: #### C A19O, LUPUS #### The performing lab is in the report. #### NSEO #### [facility] #### HEMDF, LDH3, BMP3, MG3, PT, CEA2 #### [address] [place] [address] #### B2GPM, B2GPA, B2GPG #### [address] WBC (Bld) [#/Vol] 10.0 10*3/uL Normal 3.6-10.7 [facility] Comment on above: Performed By: #### C A19O, LUPUS #### The performing lab is in the report. #### NSEO #### [facility] #### HEMDF, LDH3, BMP3, MG3, PT, CEA2 #### [facility] [address] [place] [address] #### B2GPM, B2GPA, B2GPG #### [facility] [address] [place] [address] Neuron Specific Enolaseon Neuron Specific Enolase 20.8 Normal [facility] Comment on above: Result Comment: Neur on Specific Enolase, Serum 20.8 ng/mL H (Ref Interval: <=12.7) NSE and Hgb are elevated in the specimen. The elevated NSE may be a result of hemolysis as NSE is expressed in red blood cells. Interpret results with caution. INTERPRETIVE INFORMATION: Neuron Specific Enolase in Serum This assay is performed using the powervaultS NSE Kryptor Immunoassay. Results obtained with different assay methods or kits cannot be used interchangeably. Results cannot be interpreted as absolute evidence of the presence or absence of malignant disease. This test was developed and its performance characteristics determined by [facility]. It has not been cleared or approved by the [place] Food and Drug Administration. This test was performed in a CLIA certified laboratory and is intended for clinical purposes. Performed By: #### C OVAG #### [facility] [address] [place] [address] Neuron specific enolase (NSE )on 10-28-2021 Neuron Specific Enolase 20.8 [facility] Work Phone: Comment on above: Neuron Specific Enol ase, Serum 20.8 ng/mL H (Ref Interval: <=12.7) NSE and Hgb are elevated in the specimen. The elevated NSE may be a result of hemolysis as NSE is expressed in red blood cells. Interpret results with caution. INTERPRETIVE INFORMATION: Neuron Specific Enolase in Serum This assay is performed using the BRAOvonyxS NSE Kryptor Immunoassay. Results obtained with different assay methods or kits cannot be used interchangeably. Results cannot be interpreted as absolute evidence of the presence or absence of malignant disease. This test was developed and its performance characteristics determined by [facility]. It has not been cleared or approved by the [place] Food and Drug Administration. This test was performed in a CLIA certified laboratory and is intended for clinical purposes. 1 [facility] Work Phone: Prothrombin Timeon 2 INR 3.1 High 0.9-1.1 [facility] Comment on above: Result Comment: Harry [...] HEMDF, LDH3, BMP3, MG3, PT, CEA2 #### [facility] [address] [place] [address] #### B2GPM, B2GPA, B2GPG #### [address] PT Coag (PPP) [Time] 30.8 s High 9.0-12.0 [facility] Comment on above: Result Comment: . Performed By: #### C A19O, LUPUS #### The performing lab is in the report. #### NSEO #### [facility] #### HEMDF, LDH3, BMP3, MG3, PT, CEA2 #### [facility] [address] [place] [address] #### B2GPM, B2GPA, B2GPG #### [address] Protime-INRon 10-28-2021 INR Coag (Bld) [Relative time] 3.1 {INR} High [facility] Work Phone: Comment on [...] Interpretation and review of laboratory results Abnormal [facility] Work Phone: PT Coag (PPP) [Time] 30.8 s High 9.0 - 12.0 s [facility] Work Phone: Comment on above: . Test Performed by [facility], [address] [place], [place], [place] [address] [place] [address] LAB [facility] Work Phone: MRI BRAIN WO CONTRASTon - Patient Name: ANDREW SIFUENTES [facility] ACCESSION EXAM DATE/TIME PROCEDURE ORDERING PROVIDER [id number] 10/27/2021 13:14 EDT MRI Brain w/o Contrast UNASSIGNED, UNASSIGNED CPT code 34973 Reason For Exam (MRI Brain w/o Contrast) stroke Patient has DRILL OPERATOR PNEUMATIC shunt in place, please follow Radiology protocol [...] RAMOS Transcribed Date and Time: 10/27/2021 2:39 [facility] Venus Loyd MD - 10/27/2021 Patient Name: ANDREW SIFUENTES [facility] ACCESSION EXAM DATE/TIME PROCEDURE ORDERING PROVIDER [id number] 10/27/2021 13:14 EDT MRI Brain w/o Contrast UNASSIGNED, UNASSIGNED CPT code 00773 Reason For Exam (MRI Brain w/o Contrast) stroke Patient has DRILL OPERATOR PNEUMATIC shunt in place, please follow Radiology protocol [...] --- Final --- Dictating Physician: MD KHARI, VENSU RAMOS Signed Date and Time: 10/27/2021 2:38 pm Signed by: MD KHARI, VENUS RAMOS Transcribed Date and Time: 10/27/2021 2:39 [facility] Work Phone: [facility] Work Phone: MRI Brain w/o Contraston MRI Brain w/o Contrast Patient Name[id number] Magnetic Resonance Imaging ACCESSION EXAM DATE/TIME PROCEDURE ORDERING PROVIDER [id number] 10/27/2021 13:14 EDT MRI Brain w/o Contrast UNASSIGNED, UNASSIGNED CPT code 77007 Reason For Exam (MRI Brain w/o Contrast) stroke Patient has DRILL OPERATOR PNEUMATIC shunt in place, please follow Radiology protocol [...] Transcribed Date and Time: 10/27/2021 2:39 Normal [facility] Prothrombin Timeon INR 2.1 High 0.9-1.1 [facility] Comment on above: Result Comment: Harry [...] Infarction Performed By: #### P T #### [facility] [address] [place] [address] PT Coag (PPP) [Time] 21.9 s High 9.0-12.0 [facility] Work Phone: Comment on above: . Result Comment: . Performed By: #### P T #### [facility] [address] [place] [address] Protime-INRon 10-27-2021 INR Coag (Bld) [Relative time] 2.1 {INR} High [facility] Work Phone: Comment on [...] Interpretation and review of laboratory results Abnormal [facility] Work Phone: Test Performed by [facility], [address] [place], [place], [place] [id number] [place] [address] LAB [facility] Work Phone: CT HEAD WO CONTRASTon 2021 Patient Name: ANDREW SIFUENTES Computed Tomography ACCESSION EXAM DATE/TIME PROCEDURE ORDERING PROVIDER [id number] 10/26/2021 11:[address] Head or Brain w/o JUNIE PINEDA, SARINA Contrast CPT code 99460 Reason For Exam (CT Head or Brain w/o Contrast) hydrocephalus. thank you Report CLINICAL INFORMATION: Hydrocephalus. Shunt. 3 mm axial cuts through the head are obtained without IV contrast. The examination is compared to a previous study dated 06/29/2014. FINDINGS: Old DRILL OPERATOR PNEUMATIC shunt tubing is noted bilaterally. The new [...] are clear. IMPRESSION: 1. Old and new DRILL OPERATOR PNEUMATIC shunt tubing. 2. No hydrocephalus. 3. Atrophy [...] Tomography ACCESSION EXAM DATE/TIME PROCEDURE ORDERING PROVIDER [id number] 10/26/2021 11:[address] Head or Brain w/o EDWIN, JUNIE, SARINA Contrast CPT code 41628 Reason For Exam (CT Head or Brain w/o Contrast) hydrocephalus. thank you Report CLINICAL INFORMATION: Hydrocephalus. Shunt. 3 mm axial cuts through the head are obtained without IV contrast. The examination is compared to a previous study dated 06/29/2014. FINDINGS: Old DRILL OPERATOR PNEUMATIC shunt tubing is noted bilaterally. The new [...] are clear. IMPRESSION: 1. Old and new DRILL OPERATOR PNEUMATIC shunt tubing. 2. No hydrocephalus. 3. Atrophy [...] CONTRASTOrdered B y: Albert Solano on 10-26-2021 [facility] Work Phone: CT Head or Brain w/o Contras ton 10-26-2021 CT Head or Brain w/o Contrast Patient [facility]: [id number] Computed Tomography ACCESSION EXAM DATE/TIME PROCEDURE ORDERING PROVIDER [id number] 10/26/2021 11:[address] Head or Brain w/o EDWIN, KIOSK SALES REPRESENTATIVE, SARINA Contrast CPT code 30937 Reason For Exam (CT Head or Brain w/o Contrast) hydrocephalus. thank you Report CLINICAL INFORMATION: Hydrocephalus. Shunt. 3 mm axial cuts through the head are obtained without IV contrast. The examination is compared to a previous study dated 06/29/2014. FINDINGS: Old DRILL OPERATOR PNEUMATIC shunt tubing is noted bilaterally. The new [...] are clear. IMPRESSION: 1. Old and new DRILL OPERATOR PNEUMATIC shunt tubing. 2. No hydrocephalus. 3. Atrophy and evidence of small-vessel ischemic disease. 4. No CT evidence of an acute intracranial process. Report Dictated on Final Dictating Physician: MD SOLANO JEFFREY Signed Date and Time: 10/26/2021 11:42 am Signed by: MD SOLANO JEFFREY Transcribed Date and Time: 10/26/2021 11:43 Normal [facility] EEG awake and asleepon 10-26 Bony Tompkins MD 10/26/2021 4:06 PM [facility] [address] [place] [address] [id number] ROUTINE EEG REPORT Patient Name: Andrew Sifuentes : 1950 Date of Study: 10/26/2021 Duration Recorded: 23 minutes EEG#: [id number] [employer] SALESPERSON: CASTRO PROVIDER REQUESTING STUDY: Dr. Barreto REASON FOR EXAM: seizures HISTORY: Andrew Sifuentes is a 71 y.o. 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 At present patient is awake, follows commands, was able to tell his name, and that he was in hospital but not oriented to time. Per documentation patient had NCSE in May 2021, was on Vimpat, but it was discontinued as there was no evidence of recurrent seizures in July 2021 by Neurology at [facility], per daughter patient was on Dilantin for 31 yrs. Per daughter patient had seizures in the past and also felt he had staring episodes this morning. Leonid daughter patient has been essentially bed bound in [place] since May 2021 but prior to that [...] study with video was carried out at [facility]. Scalp electrodes were positioned in person by an health information technologist, following patient education, according to the 10-20 International system of electrode placement and maintained for integrity and quality of the recording. EEG data with video was recorded continuously and digitally stored. The health information technologist reviewed all automated detections and manual [...] No normal vari (more content not included)... [employer] Work Phone: [employer] Work Phone: No Panel Informationon 10-26 Radiology Study observation (narrative) [employer] Work Phone: Prothrombin Timeon 2 INR 1.9 High 0.9-1.1 [facility] [employer] Comment on above: Result Comment: Harry mmended [...] Infarction Performed By: #### C OVAG #### [facility] [employer] [facility] [address] [place] [address] PT Coag (PPP) [Time] 19.7 s High 9.0-12.0 [facility] [employer] [facility] Comment on above: Result Comment: . Performed By: #### C OVAG #### [facility] [employer] [facility] [address] [place] [address] Protime-INRon 10-26-2021 INR Coag (Bld) [Relative time] 1.9 {INR} High [facility] Work Phone: Comment on [...] Interpretation and review of laboratory results Abnormal [facility] Work Phone: PT Coag (PPP) [Time] 19.7 s High 9.0 - 12.0 s [facility] Work Phone: Comment on above: . Test Performed by [facility], [address], [place], [place] [address] [facility] Work Phone: CA 19-9on 10-25-2021 CA 19-9 17 U/mL Normal <=35 [facility] Work Phone: Comment on [...] or absence of malignant disease. Performed By: [facility] [address] [place] [address] Cardiology Fellow: Quiana Castro MD Result Comment: INTE RPRETIVE [...] or absence of malignant disease. Performed By: [facility] [address] [place] [address] Cardiology Fellow: Quiana Castro MD Performed By: #### C OVAG #### [facility] [employer] [facility] [address] [place] [address] Cancer Antigen 19-9on 2021 [facility] Work Phone: Prothrombin Timeon 2 INR 1.5 High 0.9-1.1 [facility] Comment on above: Result Comment: Harry [...] Infarction Performed By: #### P T #### [facility] [address] [place] [address] PT Coag (PPP) [Time] 15.6 s High 9.0-12.0 [facility] Comment on above: Result Comment: . Performed By: #### P T #### [facility] [address] [place] [address] Protime-INRon 10-25-2021 INR Coag (Bld) [Relative time] 1.5 {INR} High [facility] Work Phone: Comment on [...] Interpretation and review of laboratory results Abnormal [employer] Work Phone: PT Coag (PPP) [Time] 15.6 s High 9.0 - 12.0 s [employer] Work Phone: Comment on above: . Test Performed by [facility], [address], [place], [place] [address] [facility] Work Phone: B-2 Glycoprotein (IGA)on Beta-2 Glyco 1 IgA <2.0 U/mL [facility] Work Phone: Comment on above: Interpretive Informa tion: Results equal to or greater than 20 U/mL = POSITIVE Results less than 20 U/mL = NEGATIVE B2 Glycoprotein I (IgM) Abon 10-24-2021 Beta-2 Glyco 1 IgM <1.5 U/mL [facility] Work Phone: Comment on above: Interpretive Informa tion: Results equal to or greater than 20 U/mL = POSITIVE Results less than 20 U/mL = NEGATIVE B2 Glycoprotein I Igg Abon 0 10-24-2021 Beta-2 Glyco 1 IgG <1.4 U/mL [facility] Work Phone: Comment on above: Interpretive Informa tion: Results equal to or greater than 20 U/mL = POSITIVE Results less than 20 U/mL = NEGATIVE Basic Metabolic Panelon --2021 Anion gap [Moles/Vol] 8 mmol/L Normal 3-13 [facility] Comment on above: Performed By: #### C A19O, LUPUS #### The performing lab is in the report. #### NSEO #### [facility] #### HEMDF, LDH3, BMP3, MG3, PT, CEA2 #### [facility] [address] [place] [address] #### B2GPM, B2GPA, B2GPG #### [address] [phone] Calcium [Mass/Vol] 8.8 mg/dL Normal 8.4-10.4 [facility] Comment on above: Performed By: #### C A19O, LUPUS #### The performing lab is in the report. #### NSEO #### [facility] #### HEMDF, LDH3, BMP3, MG3, PT, CEA2 #### [facility] [address] [place] [address] #### B2GPM, B2GPA, B2GPG #### [address] [phone] CO2 [Moles/Vol] 25 mmol/L Normal 22-30 [facility] Comment on above: Performed By: #### C A19O, LUPUS #### The performing lab is in the report. #### NSEO #### [facility] #### HEMDF, LDH3, BMP3, MG3, PT, CEA2 #### [facility] [address] [place] [address] #### B2GPM, B2GPA, B2GPG #### [address] Creatinine [Mass/Vol] 0.74 mg/dL Normal 0.52-1.25 [facility] Comment on above: Performed By: #### C A19O, LUPUS #### The performing lab is in the report. #### NSEO #### [facility] #### HEMDF, LDH3, BMP3, MG3, PT, CEA2 #### [facility] [address] [place] [address] #### B2GPM, B2GPA, B2GPG #### [address] eGFR OTHER > 90.0 Normal >60 [facility] Comment on above: Result Comment: KDIG [...] HEMDF, LDH3, BMP3, MG3, PT, CEA2 #### [facility] [address] [place] [address] #### B2GPM, B2GPA, B2GPG #### [address] GFR/1.73 sq M.predicted among blacks MDRD (S/P/Bld) [Vol rate/Area] mL/min/{1.73_m2} Normal >60 [facility] Comment on above: Performed By: #### C A19O, LUPUS #### The performing lab is in the report. #### NSEO #### [facility] #### HEMDF, LDH3, BMP3, MG3, PT, CEA2 #### [facility] [address] [place] [address] #### B2GPM, B2GPA, B2GPG #### [address] Glucose [Mass/Vol] 116 mg/dL High 70-100 [facility] Comment on above: Performed By: #### C A19O, LUPUS #### The performing lab is in the report. #### NSEO #### [facility] #### HEMDF, LDH3, BMP3, MG3, PT, CEA2 #### [facility] [address] [place] [address] #### B2GPM, B2GPA, B2GPG #### [address] Urea nitrogen [Mass/Vol] 19 mg/dL High 7-17 [facility] Comment on above: Performed By: #### C A19O, LUPUS #### The performing lab is in the report. #### NSEO #### [facility] #### HEMDF, LDH3, BMP3, MG3, PT, CEA2 #### [facility] [address] [place] [address] #### B2GPM, B2GPA, B2GPG #### [address] Chloride [Moles/Vol] 107 mmol/L Normal 98-107 [facility] Comment on above: Performed By: #### C A19O, LUPUS #### The performing lab is in the report. #### NSEO #### [facility] #### HEMDF, LDH3, BMP3, MG3, PT, CEA2 #### [place] [address] [place] [address] #### B2GPM, B2GPA, B2GPG #### [address] Potassium [Moles/Vol] 3.9 mmol/L Normal 3.5-5.1 [facility] Comment on above: Performed By: #### C A19O, LUPUS #### The performing lab is in the report. #### NSEO #### [facility] #### HEMDF, LDH3, BMP3, MG3, PT, CEA2 #### [address] [place] [address] #### B2GPM, B2GPA, B2GPG #### [address] Sodium [Moles/Vol] 140 mmol/L Normal 135-145 [facility] Comment on above: Performed By: #### C A19O, LUPUS #### The performing lab is in the report. #### NSEO #### [facility] #### HEMDF, LDH3, BMP3, MG3, PT, CEA2 #### [address] [place] [address] #### B2GPM, B2GPA, B2GPG #### [address] Anion gap [Moles/Vol] 8 mmol/L 3 - 13 mmol/L [facility] Calcium [Mass/Vol] 8.8 mg/dL 8.4 - 10. 4 mg/dL [facility] Chloride [Moles/Vol] 107 mmol/L 98 - 10 7 mmol/L [facility] CO2 [Moles/Vol] 25 mmol/L 22 - 30 mmol/L [facility] Creatinine [Mass/Vol] 0.74 mg/dL 0.52 - 1.25 mg/dL [facility] EGFR IF NonAfrican Bruneian >90.0 >60 mL/min [facility] Comment on above: [...] 116 mg/dL High 70 - 100 mg/dL [facility] Interpretation and review of laboratory results Abnormal [facility] Potassium [Moles/Vol] 3.9 mmol/L 3.5 - 5.1 mmol/L [facility] Sodium [Moles/Vol] 140 mmol/L 135 - 145 mmol/L [facility] Urea nitrogen (BldV) [Mass/Vol] 19 mg/dL High 7 - 17 mg/dL [facility] Test Performed by [facility], [address], [place], [place] [id number] [place] [address] LAB [facility] Beta-2 Glycoprotein I IgAon 10-24-2021 Beta-2 Glycoprotein I IgA < 2.0 Normal [facility] Comment on above: Result Comment: Inte rpretive Information: Results equal to or greater than 20 U/mL = POSITIVE Results less than 20 U/mL = NEGATIVE Performed By: #### C OVAG #### [facility] [address] [place] [address] Beta-2 Glycoprotein I IgGon 10-24-2021 Beta-2 Glycoprotein I IgG < 1.4 Normal [facility] Comment on above: Result Comment: Inte rpretive Information: Results equal to or greater than 20 U/mL = POSITIVE Results less than 20 U/mL = NEGATIVE Performed By: #### C OVAG #### [facility] [address] [place] [address] Beta-2 Glycoprotein I IgMon 10-24-2021 Beta-2 Glycoprotein I IgM < 1.5 Normal [facility] Comment on above: Result Comment: Inte rpretive Information: Results equal to or greater than 20 U/mL = POSITIVE Results less than 20 U/mL = NEGATIVE Performed By: #### C OVAG #### [facility] [address] [place] [address] No Panel Informationon 10-24 [facility] Test Performed by [facility], [facility] [place] [address] [facility] Work Phone: PROTEIN C FUNCTIONALon 10-24 Interpretation and review of laboratory results Abnormal [facility] Protein C-Functional 185 % High 83 - 168 % [facility] Comment on above: INTERPRETIVE INFORMA TION: [...] reference intervals for this test in the [employer] Laboratory Test Directory ([employer]). Performed by [facility], [address] [facility] [place] [address] www.[employer], Quiana Castro MD - Lab. Director Protein C, Functionalon - Protein C, Functional 185 % High 83-168 [facility] Comment on above: Result Comment: INTE [...] reference intervals for this test in the [employer] Laboratory Test Directory ([employer]). Performed by [facility], [address] [facility],[place] [id number] www.[employer], Quiana Castro MD - Lab. Director Performed By: #### P T #### [facility] [employer] [facility] [address] [place] [address] Protein S, Functionalon - Protein S, Functional 138 % Normal 66-143 [facility] Comment on above: INTERPRETIVE INFORMA TION: Protein [...] reference intervals for this test in the [employer] Laboratory Test Directory ([employer]). Performed by [facility], [address] [facility] www.[employer], Quiana Castro MD - Lab. Director Result [...] reference intervals for this test in the [employer] Laboratory Test Directory ([employer]). Performed by [facility], [address] [facility],[place] [id number] www.[employer], Quiana Castro MD - Lab. Director Performed By: #### P T #### [facility] [employer] [facility] [address] [place] [address] Prothrombin Timeon INR 1.2 High 0.9-1.1 [facility] Comment on above: Result Comment: Harry [...] HEMDF, LDH3, BMP3, MG3, PT, CEA2 #### [facility] [address] [place] [address] #### B2GPM, B2GPA, B2GPG #### [address] [phone] PT Coag (PPP) [Time] 12.6 s High 9.0-12.0 [facility] Comment on above: Result Comment: . Performed By: #### C A19O, LUPUS #### The performing lab is in the report. #### NSEO #### [facility] #### HEMDF, LDH3, BMP3, MG3, PT, CEA2 #### [facility] [address] [place] [address] #### B2GPM, B2GPA, B2GPG #### [address] [phone] Protime-INRon 10-24-2021 INR Coag (Bld) [Relative time] 1.2 {INR} High [facility] Comment on above: Recommended Anticoag [...] Interpretation and review of laboratory results Abnormal [facility] PT Coag (PPP) [Time] 12.6 s High 9.0 - 12.0 s [facility] Comment on above: . Test Performed by [facility], [address] [place] [address] [facility] Basic Metabolic Panelon 10-05 Anion gap [Moles/Vol] 10 mmol/L Normal 3-13 [facility] Comment on above: Performed By: #### C A19O, LUPUS #### The performing lab is in the report. #### NSEO #### [facility] #### HEMDF, LDH3, BMP3, MG3, PT, CEA2 #### [place] [address] [place] [address] #### B2GPM, B2GPA, B2GPG #### [address] Calcium [Mass/Vol] 9.6 mg/dL Normal 8.4-10.4 [facility] Comment on above: Performed By: #### C A19O, LUPUS #### The performing lab is in the report. #### NSEO #### [facility] #### HEMDF, LDH3, BMP3, MG3, PT, CEA2 #### [address] [place] [address] #### B2GPM, B2GPA, B2GPG #### [address] CO2 [Moles/Vol] 27 mmol/L Normal 22-30 [facility] Comment on above: Performed By: #### C A19O, LUPUS #### The performing lab is in the report. #### NSEO #### [facility] #### HEMDF, LDH3, BMP3, MG3, PT, CEA2 #### [address] [place] [address] #### B2GPM, B2GPA, B2GPG #### [address] Glucose [Mass/Vol] 109 mg/dL High 70-100 [facility] Comment on above: Performed By: #### C A19O, LUPUS #### The performing lab is in the report. #### NSEO #### [facility] #### HEMDF, LDH3, BMP3, MG3, PT, CEA2 #### [place] [address] [place] [address] #### B2GPM, B2GPA, B2GPG #### [address] Urea nitrogen [Mass/Vol] 18 mg/dL High 7-17 [facility] Comment on above: Performed By: #### C A19O, LUPUS #### The performing lab is in the report. #### NSEO #### [facility] #### HEMDF, LDH3, BMP3, MG3, PT, CEA2 #### [address] [place] #### B2GPM, B2GPA, B2GPG #### [address] Creatinine [Mass/Vol] 0.82 mg/dL Normal 0.52-1.25 [facility] Comment on above: Performed By: #### C A19O, LUPUS #### The performing lab is in the report. #### NSEO #### [facility] #### HEMDF, LDH3, BMP3, MG3, PT, CEA2 #### [address] [place] [address] #### B2GPM, B2GPA, B2GPG #### [address] GFR/1.73 sq M.predicted among blacks MDRD (S/P/Bld) [Vol rate/Area] mL/min/{1.73_m2} Normal >60 [facility] Comment on above: Performed By: #### C A19O, LUPUS #### The performing lab is in the report. #### NSEO #### [facility] #### HEMDF, LDH3, BMP3, MG3, PT, CEA2 #### [place] [address] [place] #### B2GPM, B2GPA, B2GPG #### [address] GFR/1.73 sq M.predicted among non-blacks MDRD (S/P/Bld) [Vol rate/Area] 89.9 mL/min/{1.73_m2} Normal >60 [facility] Comment on above: Result Comment: KDIG [...] HEMDF, LDH3, BMP3, MG3, PT, CEA2 #### [facility] [address] [place], [place] #### B2GPM, B2GPA, B2GPG #### [address] Chloride [Moles/Vol] 104 mmol/L Normal 98-107 [facility] Comment on above: Performed By: #### C A19O, LUPUS #### The performing lab is in the report. #### NSEO #### [facility] #### HEMDF, LDH3, BMP3, MG3, PT, CEA2 #### [facility] [address] [place], [place] #### B2GPM, B2GPA, B2GPG #### [address] Potassium [Moles/Vol] 3.9 mmol/L Normal 3.5-5.1 [facility] Comment on above: Performed By: #### C A19O, LUPUS #### The performing lab is in the report. #### NSEO #### [facility] #### HEMDF, LDH3, BMP3, MG3, PT, CEA2 #### [facility] [address] [place] [address] #### B2GPM, B2GPA, B2GPG #### [address] [address] Sodium [Moles/Vol] 142 mmol/L Normal 135-145 [facility] Comment on above: Performed By: #### C A19O, LUPUS #### The performing lab is in the report. #### NSEO #### [facility] #### HEMDF, LDH3, BMP3, MG3, PT, CEA2 #### [facility] [address] [place] [address] #### B2GPM, B2GPA, B2GPG #### [facility] [address] [place] [address] Anion gap [Moles/Vol] 10 mmol/L 3 - 13 mmol/L [facility] Work Phone: Calcium [Mass/Vol] 9.6 mg/dL 8.4 - 10. 4 mg/dL [facility] Work Phone: Chloride [Moles/Vol] 104 mmol/L 98 - 10 7 mmol/L [facility] Work Phone: CO2 [Moles/Vol] 27 mmol/L 22 - 30 mmol/L [facility] Work Phone: Creatinine [Mass/Vol] 0.82 mg/dL 0.52 - 1.25 mg/dL [facility] Work Phone: EGFR IF NonAfrican Bruneian 89.9 mL/min >60 [facility] Work Phone: Comment on above: KDIGO guidelines [...] MDRD (S/P/Bld) [Vol rate/Area] mL/min/{1.73_m2} >60 mL/min [employer] Work Phone: 222 Glucose [Mass/Vol] 109 mg/dL High 70 - 100 mg/dL [facility] Work Phone: 222 Interpretation and review of laboratory results Abnormal [facility] Work Phone: 222 Potassium [Moles/Vol] 3.9 mmol/L 3.5 - 5.1 mmol/L [facility] Work Phone: 222 Sodium [Moles/Vol] 142 mmol/L 135 - 145 mmol/L [facility] Work Phone: 222 Urea nitrogen (BldV) [Mass/Vol] 18 mg/dL High 7 - 17 mg/dL [facility] Work Phone: 222 CBC with Auto Differentialon 10-23-2021 Absolute Baso # 0.1 10*3/uL 0.0 - 0.2 10*3/uL [facility] Work Phone: 222 Absolute Neut # 6.6 10*3/uL 1.8 - 7.0 10*3/uL [employer] Work Phone: 222 Basophils/100 WBC (Bld) 1.1 % 0.0 - 2.0 % [facility] Work Phone: 222 Eosinophils (Bld) [#/Vol] 0.4 10*3/uL 0.0 - 0.5 10*3/uL [employer] Work Phone: 222 Eosinophils/100 WBC (Bld) 3.9 % 1.0 - 6.0 % [employer] Work Phone: 1() 222 Granulocytes/100 WBC (Bld) 64.0 % 40.0 - 80.0 % [employer] Work Phone: 1 222 Hematocrit (Bld) [Volume fraction] 35.1 % Low 40.0 - 52.0 % [employer] Work Phone: 1 222 Hemoglobin (Bld) [Mass/Vol] 11.6 g/dL Low 13.0 - 18.0 g/dL [employer] Work Phone: 1) 222 Interpretation and review of laboratory results Abnormal [employer] Work Phone: 1) 222 Lymphocytes (Bld) [#/Vol] 2.6 10*3/uL 1.0 - 4.3 10*3/uL [employer] Work Phone: 1) 222 Lymphocytes/100 WBC (Bld) 25.0 % 20.0 - 40.0 % [employer] Phone: 222 MCH (RBC) [Entitic mass] 28.4 pg 26.0 - 34.0 pg [employer] Work Phone: 1) 222 MCHC (RBC) [Mass/Vol] 33.1 % 32.0 - 36.0 % [employer] Work Phone: 1 222 MCV (RBC) [Entitic vol] 85.9 fL 80.0 - 98.0 fL [employer] Work Phone: 222 Monocytes (Bld) [#/Vol] 0.6 10*3/uL 0.0 - 0.8 10*3/uL [employer] Work Phone: ) 222 Monocytes/100 WBC (Bld) 6.0 % 2.0 - 10.0 % [employer] Work Phone: 1) 222 Platelet distribution width (Bld) [Ratio] 17.4 % High 11.5 - 14.5 % [employer] Phone: Platelet mean volume (Bld) [Entitic vol] 8.1 fL 7.4 - 12.4 fL [employer] Work Phone: 1 222 Comment on above: MPV is a calculated measurement using platelet volume ratio. Platelets (Bld) [#/Vol] 450 10*3/uL High 140 - 440 10*3/uL [facility] Work Phone: RBC (Bld) [#/Vol] 4.08 10*6/uL Low 4.40 - 5.9 0 10*6/uL [facility] Work Phone: WBC (Bld) [#/Vol] 10.3 10*3/uL 3.6 - 10.7 10*3/uL [facility] Work Phone: Test Performed by [facility], [address] [place], [place] [id number] [place] [address] LAB [employer] Work Phone: CEAon 10-23-2021 CEA 0.8 ng/mL 0.0 - 3.0 ng/mL [facility] [facility] Work Phone: Test Performed by [facility], [address] [place], [place] [id number] [place] [address] LAB [facility] Work Phone: Carcinoembryonic Agon 2021 Carcinoembryonic Ag. 0.8 ng/mL Normal 0.0-3.0 [facility] [employer] Comment on above: Performed By: #### C A19O, LUPUS #### The performing lab is in the report. #### NSEO #### [facility] #### HEMDF, LDH3, BMP3, MG3, PT, CEA2 #### [facility] [employer] [facility] [address] [place] [address] #### B2GPM, B2GPA, B2GPG #### [facility] [employer] [address] [place] [address] Hemogram w/ Autodiffon 10-23 Abs Baso Cnt 0.1 10*3/uL Normal 0.0-0.2 [facility] [employer] [facility] Comment on above: Performed By: #### C A19O, LUPUS #### The performing lab is in the report. #### NSEO #### [facility] #### HEMDF, LDH3, BMP3, MG3, PT, CEA2 #### [facility] [address] [place] [address] #### B2GPM, B2GPA, B2GPG #### [address] [address] Abs Neutrophile Cnt 6.6 10*3/uL Normal 1.8-7.0 [facility] Comment on above: Performed By: #### C A19O, LUPUS #### The performing lab is in the report. #### NSEO #### [facility] #### HEMDF, LDH3, BMP3, MG3, PT, CEA2 #### [facility] [address] [place] [address] #### B2GPM, B2GPA, B2GPG #### [address] Basophils/100 WBC (Bld) 1.1 % Normal 0.0-2.0 [facility] Comment on above: Performed By: #### C A19O, LUPUS #### The performing lab is in the report. #### NSEO #### [facility] #### HEMDF, LDH3, BMP3, MG3, PT, CEA2 #### [facility] [address] [place] [address] #### B2GPM, B2GPA, B2GPG #### [address] Eosinophils (Bld) [#/Vol] 0.4 10*3/uL Normal 0.0-0.5 [facility] Comment on above: Performed By: #### C A19O, LUPUS #### The performing lab is in the report. #### NSEO #### [facility] #### HEMDF, LDH3, BMP3, MG3, PT, CEA2 #### [place] [address] [place] [address] #### B2GPM, B2GPA, B2GPG #### [address] [address] Eosinophils/100 WBC (Bld) 3.9 % Normal 1.0-6.0 [facility] Comment on above: Performed By: #### C A19O, LUPUS #### The performing lab is in the report. #### NSEO #### [facility] #### HEMDF, LDH3, BMP3, MG3, PT, CEA2 #### [address] [place] [address] #### B2GPM, B2GPA, B2GPG #### [address] Erythrocyte distribution width (RBC) [Ratio] 17.4 % High 11.5-14.5 [facility] Comment on above: Performed By: #### C A19O, LUPUS #### The performing lab is in the report. #### NSEO #### [facility] #### HEMDF, LDH3, BMP3, MG3, PT, CEA2 #### [address] [place], [place] #### B2GPM, B2GPA, B2GPG #### [address] Granulocytes/100 WBC (Bld) 64.0 % Normal 40.0-80.0 [facility] Comment on above: Performed By: #### C A19O, LUPUS #### The performing lab is in the report. #### NSEO #### [facility] #### HEMDF, LDH3, BMP3, MG3, PT, CEA2 #### [address] [place] [address] #### B2GPM, B2GPA, B2GPG #### [address] Hematocrit (Bld) [Volume fraction] 35.1 % Low 40.0-52.0 [facility] Comment on above: Performed By: #### C A19O, LUPUS #### The performing lab is in the report. #### NSEO #### [facility] #### HEMDF, LDH3, BMP3, MG3, PT, CEA2 #### [facility] [address] [place] #### B2GPM, B2GPA, B2GPG #### [address] Hemoglobin (Bld) [Mass/Vol] 11.6 g/dL Low 13.0-18.0 [facility] Comment on above: Performed By: #### C A19O, LUPUS #### The performing lab is in the report. #### NSEO #### [facility] #### HEMDF, LDH3, BMP3, MG3, PT, CEA2 #### [place] [address] [place] #### B2GPM, B2GPA, B2GPG #### [address] Lymphocytes (Bld) [#/Vol] 2.6 10*3/uL Normal 1.0-4.3 [facility] Comment on above: Performed By: #### C A19O, LUPUS #### The performing lab is in the report. #### NSEO #### [facility] #### HEMDF, LDH3, BMP3, MG3, PT, CEA2 #### [address] [place] #### B2GPM, B2GPA, B2GPG #### [address] Lymphocytes/100 WBC (Bld) 25.0 % Normal 20.0-40.0 [facility] Comment on above: Performed By: #### C A19O, LUPUS #### The performing lab is in the report. #### NSEO #### [facility] #### HEMDF, LDH3, BMP3, MG3, PT, CEA2 #### [place] [address] [place] #### B2GPM, B2GPA, B2GPG #### [address] [place] MCH (RBC) [Entitic mass] 28.4 pg Normal 26.0-34.0 [facility] Comment on above: Performed By: #### C A19O, LUPUS #### The performing lab is in the report. #### NSEO #### [facility] #### HEMDF, LDH3, BMP3, MG3, PT, CEA2 #### [facility] [address] [place] #### B2GPM, B2GPA, B2GPG #### [address] MCHC 33.1 % Normal 32.0-36.0 [facility] Comment on above: Performed By: #### C A19O, LUPUS #### The performing lab is in the report. #### NSEO #### [facility] #### HEMDF, LDH3, BMP3, MG3, PT, CEA2 #### [address] [place], [place] #### B2GPM, B2GPA, B2GPG #### [address] MCV (RBC) [Entitic vol] 85.9 fL Normal 80.0-98.0 [facility] Comment on above: Performed By: #### C A19O, LUPUS #### The performing lab is in the report. #### NSEO #### [facility] #### HEMDF, LDH3, BMP3, MG3, PT, CEA2 #### [facility] [address] [place], [place] #### B2GPM, B2GPA, B2GPG #### [address] Monocytes (Bld) [#/Vol] 0.6 10*3/uL Normal 0.0-0.8 [facility] Comment on above: Performed By: #### C A19O, LUPUS #### The performing lab is in the report. #### NSEO #### [facility] #### HEMDF, LDH3, BMP3, MG3, PT, CEA2 #### [facility] [address] [place], [place] #### B2GPM, B2GPA, B2GPG #### [address] Monocytes/100 WBC (Bld) 6.0 % Normal 2.0-10.0 [facility] Comment on above: Performed By: #### C A19O, LUPUS #### The performing lab is in the report. #### NSEO #### [facility] #### HEMDF, LDH3, BMP3, MG3, PT, CEA2 #### [facility] [address] [facility] [place] #### B2GPM, B2GPA, B2GPG #### [address] Platelet mean volume (Bld) [Entitic vol] 8.1 fL Normal 7.4-12.4 [facility] Comment on above: Result Comment: MPV is a calculated measurement using platelet volume ratio. Performed By: #### C A19O, LUPUS #### The performing lab is in the report. #### NSEO #### [facility] #### HEMDF, LDH3, BMP3, MG3, PT, CEA2 #### [address] [place], [place] #### B2GPM, B2GPA, B2GPG #### [address] Platelets (Bld) [#/Vol] 450 10*3/uL High 140-440 [facility] Comment on above: Performed By: #### C A19O, LUPUS #### The performing lab is in the report. #### NSEO #### [facility] #### HEMDF, LDH3, BMP3, MG3, PT, CEA2 #### [address] [place] #### B2GPM, B2GPA, B2GPG #### [address] [phone] RBC (Bld) [#/Vol] 4.08 10*6/uL Low 4.40-5.90 [facility] Comment on above: Performed By: #### C A19O, LUPUS #### The performing lab is in the report. #### NSEO #### [facility] #### HEMDF, LDH3, BMP3, MG3, PT, CEA2 #### [facility] [address] [place] [address] #### B2GPM, B2GPA, B2GPG #### [address] WBC (Bld) [#/Vol] 10.3 10*3/uL Normal 3.6-10.7 [facility] Comment on above: Performed By: #### C A19O, LUPUS #### The performing lab is in the report. #### NSEO #### [facility] #### HEMDF, LDH3, BMP3, MG3, PT, CEA2 #### [place] [address] [place] [address] #### B2GPM, B2GPA, B2GPG #### [address] LDHon 10-23-2021 LDH 136 U/L Normal 120-246 [facility] Comment on above: Performed By: #### C A19O, LUPUS #### The performing lab is in the report. #### NSEO #### [facility] #### HEMDF, LDH3, BMP3, MG3, PT, CEA2 #### [facility] [address] [place] [address] #### B2GPM, B2GPA, B2GPG #### [address] Lactate Dehydrogenaseon 06- LD 136 U/L 120 - 246 U/L [facility] Work Phone: MRI ABDOMEN WO CONTRASTon Patient Name: ANDREW SIFUENTES [facility] ACCESSION EXAM DATE/TIME PROCEDURE ORDERING PROVIDER [id number] 10/23/2021 11:08 EDT MRI Abdomen w/o Contrast WING SRIVASTAVA CPT code 16933 Reason For Exam (MRI Abdomen w/o Contrast) [...] Prov ider - 10/23/2021 Patient Name: ANDREW SIFUENTSE [facility] ACCESSION EXAM DATE/TIME PROCEDURE ORDERING PROVIDER [id number] 10/23/2021 11:08 EDT MRI Abdomen w/o Contrast WING SRIVASTAVA CPT code 47793 Reason For Exam (MRI Abdomen w/o Contrast) [...] VLADIMIR Transcribed Date and Time: 10/23/2021 4:36 [facility] Work Phone: MRI ABDOMEN WO CONTRASTOrder ed By: Unknown Result on 10-23-2021 [facility] MRI Abdomen w/o Contraston 0 10-23-2021 MRI Abdomen w/o Contrast Patient Name: ANDREW SIFUENTES [facility] ACCESSION EXAM DATE/TIME PROCEDURE ORDERING PROVIDER [id number] 10/23/2021 11:08 EDT MRI Abdomen w/o Contrast WING SRIVASTAVA CPT code 15831 Reason For Exam (MRI Abdomen w/o Contrast) [...] Transcribed Date and Time: 10/23/2021 4:36 Normal [facility] Magnesiumon 10-23-2021 Magnesium [Mass/Vol] 2.1 mg/dL Normal 1.6-2.3 [facility] Comment on above: Performed By: #### C A19O, LUPUS #### The performing lab is in the report. #### NSEO #### [facility] #### HEMDF, LDH3, BMP3, MG3, PT, CEA2 #### [facility] [address] [place] [address] #### B2GPM, B2GPA, B2GPG #### [facility] [address] [place] [address] Magnesium [Mass/Vol] 2.1 mg/dL 1.6 - 2 .3 mg/dL [facility] Work Phone: No Panel Informationon 10-23 Test Performed by [facility], [address] [place], [place] [id number] [place] [address] LAB [facility] Work Phone: Prothrombin Timeon 2 INR 1.1 Normal 0.9-1.1 [facility] Comment on above: Result Comment: Harry [...] HEMDF, LDH3, BMP3, MG3, PT, CEA2 #### [facility] [address] [place] [address] #### B2GPM, B2GPA, B2GPG #### [facility] [address] [place] [address] PT Coag (PPP) [Time] 12.2 s High 9.0-12.0 [facility] Comment on above: Result Comment: . Performed By: #### C A19O, LUPUS #### The performing lab is in the report. #### NSEO #### [facility] #### HEMDF, LDH3, BMP3, MG3, PT, CEA2 #### [facility] [address] [place] [address] #### B2GPM, B2GPA, B2GPG #### [address] [address] Protime-INRon 10-23-2021 INR Coag (Bld) [Relative time] 1.1 {INR} [facility] Work Phone: Comment on [...] Interpretation and review of laboratory results Abnormal [facility] Work Phone: PT Coag (PPP) [Time] 12.2 s High 9.0 - 12.0 s [facility] Work Phone: Comment on above: . Test Performed by [facility], [address] [place], [place] [id number] [place] [address] LAB [facility] Work Phone: Basic Metabolic Panelon - Calcium [Mass/Vol] 8.9 mg/dL Normal 8.4-10.4 [facility] Comment on above: Performed By: #### P T #### [facility] [address] [place] [address] Glucose [Mass/Vol] 110 mg/dL High 70-100 [facility] Comment on above: Performed By: #### P T #### [facility] [address] [place] [address] Urea nitrogen [Mass/Vol] 14 mg/dL Normal 7-17 [facility] Comment on above: Performed By: #### P T #### [facility] [address] [place] [address] Anion gap [Moles/Vol] 7 mmol/L Normal 3-13 [facility] Comment on above: Performed By: #### P T #### [facility] [address] [place] [address] CO2 [Moles/Vol] 26 mmol/L Normal 22-30 [facility] Comment on above: Performed By: #### P T #### [facility] [address] [place] [address] Creatinine [Mass/Vol] 0.71 mg/dL Normal 0.52-1.25 [facility] Comment on above: Performed By: #### P T #### [facility] [address] [place] [address] eGFR OTHER > 90.0 Normal >60 [facility] Comment on above: Result Comment: KDIG [...] secretion. Performed By: #### P T #### [facility] [address] [place] [address] GFR/1.73 sq M.predicted among blacks MDRD (S/P/Bld) [Vol rate/Area] mL/min/{1.73_m2} Normal >60 [facility] Comment on above: Performed By: #### P T #### [facility] [address] [place] [address] Potassium [Moles/Vol] 3.8 mmol/L Normal 3.5-5.1 [facility] Comment on above: Performed By: #### P T #### [facility] [address] [place] [address] Chloride [Moles/Vol] 106 mmol/L Normal 98-107 [facility] Comment on above: Performed By: #### P T #### [facility] [address] [place] [address] Sodium [Moles/Vol] 139 mmol/L Normal 135-145 [facility] Comment on above: Performed By: #### P T #### [facility] [address] [place] [address] Anion gap [Moles/Vol] 7 mmol/L 3 - 13 mmol/L [facility] Calcium [Mass/Vol] 8.9 mg/dL 8.4 - 10. 4 mg/dL [facility] Chloride [Moles/Vol] 106 mmol/L 98 - 10 7 mmol/L [facility] CO2 [Moles/Vol] 26 mmol/L 22 - 30 mmol/L [facility] Creatinine [Mass/Vol] 0.71 mg/dL 0.52 - 1.25 mg/dL [facility] EGFR IF NonAfrican Bruneian >90.0 >60 mL/min [facility] Comment on above: KDIGO guidelines [...] - 10.7 10*3/uL [facility] Test Performed by [facility], [address] [place], [place] [id number] [place] [address] [address] [facility] Abdomen Pelvis Wo Contras ton 10-22-2021 Patient Name: ANDREW SIFUENTES Computed Tomography ACCESSION EXAM DATE/TIME PROCEDURE ORDERING PROVIDER [id number] 10/22/2021 13:[address] Abdomen/Pelvis (No SRIVASTAVA, WING PO, No IV) CPT code 88115 Reason For Exam (CT Abdomen/Pelvis (No PO, [...] HARLAN Transcribed Date and Time: 10/22/2021 2:37 [facility] Humphrey Melton MD - 10/22/2021 Patient Name: ANDREW SIFUENTES Computed Tomography ACCESSION EXAM DATE/TIME PROCEDURE ORDERING PROVIDER [id number] 10/22/2021 13:[address] Abdomen/Pelvis (No SRIVASTAVA, WING PO, No IV) CPT code 63425 Reason For Exam (CT Abdomen/Pelvis (No PO, [...] Abdomen/Pelvis w/o Contrast Patient [facility]: [id number] Computed Tomography ACCESSION EXAM DATE/TIME PROCEDURE ORDERING PROVIDER [id number] 10/22/2021 13:[address] Abdomen/Pelvis (No SRIVASTAVA, WING PO, No IV) CPT code 18165 Reason For Exam (CT Abdomen/Pelvis (No PO, [...] Transcribed Date and Time: 10/22/2021 2:37 Normal [facility] Hemogram w/ Autodiffon 10-22 Abs Baso Cnt 0.1 10*3/uL Normal 0.0-0.2 [facility] Comment on above: Performed By: #### P T #### [facility] [address] [place] [address] Abs Neutrophile Cnt 6.0 10*3/uL Normal 1.8-7.0 [facility] Comment on above: Performed By: #### P T #### [facility] [address] [place] [address] Basophils/100 WBC (Bld) 1.0 % Normal 0.0-2.0 [facility] Comment on above: Performed By: #### P T #### [facility] [address] [place] [address] Eosinophils (Bld) [#/Vol] 0.3 10*3/uL Normal 0.0-0.5 [facility] Comment on above: Performed By: #### P T #### [facility] [address] [place] [address] Eosinophils/100 WBC (Bld) 3.0 % Normal 1.0-6.0 [facility] Comment on above: Performed By: #### P T #### [facility] [address] [place] [address] Erythrocyte distribution width (RBC) [Ratio] 17.1 % High 11.5-14.5 [facility] Comment on above: Performed By: #### P T #### [facility] [address] [place] [address] Granulocytes/100 WBC (Bld) 64.1 % Normal 40.0-80.0 [facility] Comment on above: Performed By: #### P T #### [facility] [address] [place] [address] Hematocrit (Bld) [Volume fraction] 33.4 % Low 40.0-52.0 [facility] Comment on above: Performed By: #### P T #### [facility] [address] [place] [address] Hemoglobin (Bld) [Mass/Vol] 10.9 g/dL Low 13.0-18.0 [facility] Comment on above: Performed By: #### P T #### [facility] [address] [place] [address] Lymphocytes (Bld) [#/Vol] 2.5 10*3/uL Normal 1.0-4.3 [facility] Comment on above: Performed By: #### P T #### [facility] [address] [place] [address] Lymphocytes/100 WBC (Bld) 26.3 % Normal 20.0-40.0 [facility] Comment on above: Performed By: #### P T #### [facility] [address] [place] [address] MCH (RBC) [Entitic mass] 28.2 pg Normal 26.0-34.0 [facility] Comment on above: Performed By: #### P T #### [facility] [address] [place] [address] MCHC 32.7 % Normal 32.0-36.0 [facility] Comment on above: Performed By: #### P T #### [facility] [address] [place] [address] MCV (RBC) [Entitic vol] 86.3 fL Normal 80.0-98.0 [facility] Comment on above: Performed By: #### P T #### [facility] [address] [place] [address] Monocytes (Bld) [#/Vol] 0.5 10*3/uL Normal 0.0-0.8 [facility] Comment on above: Performed By: #### P T #### [facility] [address] [place] [address] Monocytes/100 WBC (Bld) 5.6 % Normal 2.0-10.0 [facility] Comment on above: Performed By: #### P T #### [facility] [address] [place] [address] Platelet mean volume (Bld) [Entitic vol] 7.6 fL Normal 7.4-12.4 [facility] Comment on above: Result Comment: MPV is a calculated measurement using platelet volume ratio. Performed By: #### P T #### [facility] [address] [place] [address] Platelets (Bld) [#/Vol] 369 10*3/uL Normal 140-440 [facility] Comment on above: Performed By: #### P T #### [facility] [address] [place] [address] RBC (Bld) [#/Vol] 3.87 10*6/uL Low 4.40-5.90 [facility] Comment on above: Performed By: #### P T #### [facility] [address] [place] [address] WBC (Bld) [#/Vol] 9.4 10*3/uL Normal 3.6-10.7 [facility] Comment on above: Performed By: #### P T #### [facility] [address] [place] [address] Magnesiumon 10-22-2021 Magnesium [Mass/Vol] 2.0 mg/dL Normal 1.6-2.3 [facility] Comment on above: Performed By: #### P T #### [facility] [address] [place] [address] Magnesium [Mass/Vol] 2.0 mg/dL 1.6 - 2 .3 mg/dL [facility] No Panel Informationon 10-22 Radiology Study observation (narrative) [facility] Work Phone: Test Performed by [facility], [address] [place], [place] [id number] [place] [address] LAB [facility] Prothrombin Timeon 2 INR 1.1 Normal 0.9-1.1 [facility] Comment on above: Result Comment: Harry [...] HEMDF, LDH3, BMP3, MG3, PT, CEA2 #### [facility] [address] [place] [address] #### B2GPM, B2GPA, B2GPG #### [facility] [address] [place] [address] PT Coag (PPP) [Time] 11.8 s Normal 9.0-12.0 [facility] Comment on above: Result Comment: . Performed By: #### C A19O, LUPUS #### The performing lab is in the report. #### NSEO #### [facility] #### HEMDF, LDH3, BMP3, MG3, PT, CEA2 #### [employer] [facility] [address] [place] [address] #### B2GPM, B2GPA, B2GPG #### [employer] [address] [place] [place] [phone] Protime-INRon 10-22-2021 INR Coag (Bld) [Relative time] 1.1 {INR} [employer] Work Phone: Comment on above: Recommended Anticoag [...] [Time] 11.8 s 9.0 - 12.0 s [employer] Work Phone: Comment on above: . Test Performed by [facility] [employer] [facility], [address] [place], [place] [id number] [place] [address] LAB [employer] Work Phone: VL Ankle Art Brachial Indice s Extremity Bilateralon 10-22-2021 [facility] Ankle Brachial Index Report Patient DO GurpreetB: 1950 Study 10/21/2021 Name: Andrew Gonzalez (71yrs) Date: Age: 71 Account: [id number] Gender: M Loc: 444W BP: Ordering Physician: Shruthi Malik Base Engineer: Rody Cross RDMS, RVT Interpreting Physician: Carina Call Location: [facility] Indications: Foot wounds. Originally ordered as a full PVR. Ordering [employer] SALES REPRESENTATIVE had to modify the order to ABIs [...] supine position. Images were obtained using a [employer] vascular ultrasound machine. Arterial pressure indices: + [...] electronically signed by Carina Call 10/22/2021 13:21 [facility] Carina Call MD - 10/22/2021 [facility] Ankle Brachial Index Report Patient DO GurpreetB: 1950 Study 10/21/2021 Name: Andrew Gonzalez (71yrs) Date: Age: 71 Account: [id number] Gender: M Loc: 444W BP: Ordering Physician: Shruthi Malik Base Engineer: Rody Cross RDMS, RVT Interpreting Physician: Carina Call Location: [facility] Indications: Foot wounds. Originally ordered as a full PVR. Ordering [employer] SALES REPRESENTATIVE had to modify the order to ABIs [...] supine position. Images were obtained using a [employer] vascular ultrasound machine. Arterial pressure indices: + [...] electronically signed by Carina Call 10/22/2021 13:21 [employer] Work Phone: [employer] Work Phone: Basic Metabolic Panelon 10-05 Calcium [Mass/Vol] 9.1 mg/dL Normal 8.4-10.4 [facility] Comment on above: Performed By: #### C OVAG #### [facility] [employer] [address] [facility] [place] [address] Anion gap [Moles/Vol] 6 mmol/L Normal 3-13 [facility] Comment on above: Performed By: #### C OVAG #### [facility] [address] [place] [address] CO2 [Moles/Vol] 29 mmol/L Normal 22-30 [facility] Comment on above: Performed By: #### C OVAG #### [facility] [employer] [address] [place] [address] Creatinine [Mass/Vol] 0.90 mg/dL Normal 0.52-1.25 [facility] Comment on above: Performed By: #### C OVAG #### [facility] [employer] [address] [place] [address] GFR/1.73 sq M.predicted among blacks MDRD (S/P/Bld) [Vol rate/Area] mL/min/{1.73_m2} Normal >60 [facility] [employer] [facility] Comment on above: Performed By: #### C OVAG #### [facility] [address] [place] [address] GFR/1.73 sq M.predicted among non-blacks MDRD (S/P/Bld) [Vol rate/Area] 86.6 mL/min/{1.73_m2} Normal >60 [facility] Comment on above: Result Comment: KDIG [...] secretion. Performed By: #### C OVAG #### [facility] [address] [place] [address] Glucose [Mass/Vol] 106 mg/dL High 70-100 [facility] Comment on above: Performed By: #### C OVAG #### [facility] [address] [place] [address] Urea nitrogen [Mass/Vol] 18 mg/dL High 7-17 [facility] Comment on above: Performed By: #### C OVAG #### [facility] [address] [place] [address] Chloride [Moles/Vol] 105 mmol/L Normal 98-107 [facility] Comment on above: Performed By: #### C OVAG #### [facility] [address] [place] [address] Potassium [Moles/Vol] 4.3 mmol/L Normal 3.5-5.1 [facility] Comment on above: Performed By: #### C OVAG #### [facility] [address] [place] [address] Sodium [Moles/Vol] 139 mmol/L Normal 135-145 [facility] Comment on above: Performed By: #### C OVAG #### [facility] [address] [place] [address] Anion gap [Moles/Vol] 6 mmol/L 3 - 13 mmol/L [facility] Calcium [Mass/Vol] 9.1 mg/dL 8.4 - 10. 4 mg/dL [facility] Chloride [Moles/Vol] 105 mmol/L 98 - 10 7 mmol/L [facility] CO2 [Moles/Vol] 29 mmol/L 22 - 30 mmol/L [facility] Creatinine [Mass/Vol] 0.9 mg/dL 0.52 - 1.25 mg/dL [facility] EGFR IF NonAfrican Bruneian 86.6 mL/min >60 [facility] Comment on above: [...] - 17 mg/dL [facility] Test Performed by [facility], [address] [place], [place] [address] [facility] C-Reactive Proteinon 022 CRP [Mass/Vol] 33.5 mg/L High 0.0-9.9 [facility] Comment on above: Result Comment: . Performed By: #### P T #### [facility] [address] [place] [address] CRP [Mass/Vol] 33.5 mg/L High 0.0 - 9.9 mg/L [facility] Comment on above: . Interpretation and review of laboratory results Abnormal [facility] Test Performed by [facility], [address] [place] [address] [facility] CR Calcaneus 2+ Views Lefton 10-21-2021 CR Calcaneus 2+ Views Left Patient Name: ANDREW SIFUENTES Diagnostic Radiology ACCESSION EXAM DATE/TIME PROCEDURE ORDERING PROVIDER [id number] 10/21/2021 15:30 EDT CR Calcaneus 2+ Views [id number] -SHRUTHI MALIK Left CPT code 19943 Reason For Exam (CR Calcaneus 2+ Views [...] Transcribed Date and Time: 10/21/2021 4:33 Normal [facility] CR Chest 1 View Frontalon CR Chest 1 View Frontal Patient Name: ANDREW SIFUENTES Diagnostic Radiology ACCESSION EXAM DATE/TIME PROCEDURE ORDERING PROVIDER [id number] 10/21/2021 08:16 EDT CR Chest 1 View Frontal [id number] MAY BOGGS CPT code 62460 Reason For Exam (CR Chest 1 View [...] Transcribed Date and Time: 10/21/2021 8:33 Normal [facility] D-Dimer, Innovanceon 10-21-2 022 D-Dimer, Innovance 1.51 mg/L High <0.19-0.50 [facility] Comment on above: Result Comment: Inno saba D-Dimer values of <0.50 mg/L FEU can be used in combination with a pre-test probability model (e.g. Well's) to exclude pulmonary embolism (PE) disease, as well as an aid in the diagnosis of deep vein thrombosis (DVT). Performed By: #### P T #### [facility] [address] [place] [address] D-Dimer, Quantitativeon 06 D-Dimer, Quant 1.51 mg/L High <0.19 - 0.50 [facility] Comment on above: Innovance D-Dimer va lues of <0.50 mg/L FEU can be used in combination with a pre-test probability model (e.g. Well's) to exclude pulmonary embolism (PE) disease, as well as an aid in the diagnosis of deep vein thrombosis (DVT). Interpretation and review of laboratory results Abnormal [facility] Test Performed by [facility], [address], [place], [place] [address] [facility] ED Provider Noteon ED Provider Note B [facility] EMERGENCY DEPARTMENT ENCOUNTER Pt Name: Andrew [...] (HCC) ? Kidney stone ? Neuropathy ? 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 Attends Nondenominational Services: Not on file ? Active Member [...] LUNGS: Respirations (more content not included)... Normal [facility] Hemogramon 10-21-2021 Erythrocyte distribution width (RBC) [Ratio] 17.3 % High 11.5-14.5 [facility] Comment on above: Performed By: #### C OVAG #### [facility] [address] [place] [address] Hematocrit (Bld) [Volume fraction] 33.6 % Low 40.0-52.0 [facility] Comment on above: Performed By: #### C OVAG #### [facility] [address] [place] [address] Hemoglobin (Bld) [Mass/Vol] 10.9 g/dL Low 13.0-18.0 [facility] Comment on above: Performed By: #### C OVAG #### [facility] [address] [place] [address] MCH (RBC) [Entitic mass] 27.8 pg Normal 26.0-34.0 [facility] Comment on above: Performed By: #### C OVAG #### [facility] [address] [place] [address] MCHC 32.5 % Normal 32.0-36.0 [facility] Comment on above: Performed By: #### C OVAG #### [facility] [address] [place] [address] MCV (RBC) [Entitic vol] 85.6 fL Normal 80.0-98.0 [facility] Comment on above: Performed By: #### C OVAG #### [facility] [address] [place] [address] Platelet mean volume (Bld) [Entitic vol] 7.7 fL Normal 7.4-12.4 [facility] Comment on above: Result Comment: MPV is a calculated measurement using platelet volume ratio. Performed By: #### C OVAG #### [facility] [address] [place] [address] Platelets (Bld) [#/Vol] 404 10*3/uL Normal 140-440 [facility] Comment on above: Performed By: #### C OVAG #### [facility] [address] [place] [address] RBC (Bld) [#/Vol] 3.93 10*6/uL Low 4.40-5.90 [facility] Comment on above: Performed By: #### C OVAG #### [facility] [address] [place] [address] WBC (Bld) [#/Vol] 11.6 10*3/uL High 3.6-10.7 [facility] Comment on above: Performed By: #### C OVAG #### [facility] [address] [place] [address] Hemogram (CBC)on 10-21-2021 Hematocrit (Bld) [Volume fraction] 33.6 % Low 40.0 - 52.0 % [facility] Hemoglobin (Bld) [Mass/Vol] 10.9 g/dL Low [...] 11.6 10*3/uL High 3.6 - 10.7 10*3/uL [facility] Test Performed by [facility], [address] [place] [address] LAB [facility] NM LUNG VENT/PERFUSION (VQ)o n 10-21-2021 Patient Name: ANDREW SIFUENTES Nuclear Medicine ACCESSION EXAM DATE/TIME PROCEDURE ORDERING PROVIDER [id number] 10/21/2021 07:55 EDT NM Pulmonary Perfusion [id number] MAY BOGGS w/ Vent Aerosol CPT code 22534 A9567 Reason For Exam (NM Pulmonary Perfusion [...] Medicine ACCESSION EXAM DATE/TIME PROCEDURE ORDERING PROVIDER [id number] 10/21/2021 07:55 EDT NM Pulmonary Perfusion [id number] MAY BOGGS w/ Vent Aerosol CPT code 01837 A9567 Reason For Exam (NM Pulmonary Perfusion [...] Vent Aerosol or Gas Patient Name: ANDREW SIFUETNES Nuclear Medicine ACCESSION EXAM DATE/TIME PROCEDURE ORDERING PROVIDER [id number] 10/21/2021 07:55 EDT NM Pulmonary Perfusion [id number] MAY BOGGS w/ Vent Aerosol CPT code 66321 A9567 Reason For Exam (NM Pulmonary Perfusion [...] 8:49 Normal [facility] No Panel Informationon 10-21 Radiology Study observation (narrative) [facility] Work Phone: Prothrombin Timeon 2 INR 1.1 Normal 0.9-1.1 [facility] Comment on above: Result Comment: Harry [...] Infarction Performed By: #### C OVAG #### [facility] [address] [place] [address] PT Coag (PPP) [Time] 11.5 s Normal 9.0-12.0 [facility] [employer] Comment on above: Result Comment: . Performed By: #### C OVAG #### [facility] [address] [place] [address] Protime-INRon 10-21-2021 INR Coag (Bld) [Relative time] 1.1 {INR} [facility] Comment on above: Recommended Anticoag [...] [Time] 11.5 s 9.0 - 12.0 s [facility] Comment on above: . Test Performed by [facility], [address] LAB [facility] Retic Count(%)on 10-21-2021 Retic Count(%) 1.6 Normal [facility] Comment on above: Result Comment: Newb orn < 5% Adults 0.5 - 1.5% Performed By: #### P T #### [facility] [address] [place] [address] Reticulocyteson 10-21-[address] Pct 1.6 [facility] Comment on above: Bazine < 5% Adults 0.5 - 1.5% Test Performed by [facility], [address] LAB [facility] Sed Rateon 10-21-2021 Sed Rate 63 mm/h High 0-10 [facility] Comment on above: Performed By: #### P T #### [facility] [address] [place] [address] Sedimentation Rateon 022 Interpretation and review of laboratory results Abnormal [facility] Sed Rate 63 mm/h High 0 - 10 mm/h [facility] Test Performed by [facility], [address] LAB [facility] VL CARMELLA Upr/L Extremity Art 1 -2 Levelson 10-21-2021 VL CARMELLA Upr/L Extremity Art 1-2 Levels Patient Name: ANDREW SIFUENTES Ultrasound ACCESSION EXAM DATE/TIME PROCEDURE ORDERING PROVIDER [id number] 10/21/2021 16:12 EDT VL Upr/L Extremity Art [id number] -SHRUTHI MALIK 1-2 Levels CPT code 92170 Reason For Exam (VL Upr/L Extremity Art 1-2 Levels) both lower legs CARMELLA for both feet wounds. Report [facility] Ankle Brachial Index Report Patient DO GurpreetB: 1950 Study 10/21/2021 Name: Andrew Gonzalez (71yrs) Date: Age: 71 Account: [id number] Gender: M Loc: 444W BP: Ordering Physician: Shruthi Malik Base Engineer: Rody Cross RDMS, RVT Interpreting Physician: Carina Call Location: [facility] Indications: Foot wounds. Originally ordered as a full PVR. Ordering [employer] SALES REPRESENTATIVE had to modify the order to ABIs [...] supine position. Images were obtained using a [employer] vascular ultrasound machine. Arterial pressure indices: + [...] CARINA HENNESSY Cardiovascular ACCESSION EXAM DATE/TIME PROCEDURE [id number] 10/21/2021 16:12 EDT VL Upr/L Extremity Art 1-2 Levels CPT code 31917 Reason For Exam (VL Upr/L Extremity Art 1-2 Levels) both lower legs CARMELLA for both feet wounds. Report [facility] Ankle Brachial Index Report Patient DO GurpreetB: 1950 Study 10/21/2021 Name: Andrew Gonzalez (71yrs) Date: Age: 71 Account: [id number] Cardiovascular Report Gender: M Loc: 444W BP: Ordering Physician: Shruthi Malik Base Engineer: Rody Cross RDMS, RVT Interpreting Physician: Carina Call Location: [facility] Indications: Foot wounds. Originally ordered as a full PVR. Ordering [employer] SALES REPRESENTATIVE had to modify the order to ABIs [...] in th (more content not included)... Normal [facility] VL LOWER EXTREMITY BILATERAL VENOUS DUPLEXon 10-21-2021 [facility] Lower Extremity Venous Duplex Report Patient DO GurpreetB: 1950 Study 10/21/2021 Name: Andrew Gonzalez (71yrs) Date: Age: 71 Account: [id number] Gender: M Loc: 444 BP: Ordering Physician: May Cash Base Engineer: Rody Cross RDMS, RVT Interpreting Physician: Carina Call Location: [facility] Indications: Bilateral lower leg edema. CRITICAL RESULTS: [...] supine position. Images were obtained using a [employer] vascular ultrasound machine. Venous flow and imaging: [...] +-------- --------+ + (more content not included)... [facility] Carina Call MD - 10/21/2021 [facility] Lower Extremity Venous Duplex Report Patient DO GurpreetB: 1950 Study 10/21/2021 Name: Andrew Gonzalez (71yrs) Date: Age: 71 Account: [id number] Gender: M Loc: 444 BP: Ordering Physician: May Cash Base Engineer: Rody Cross RDMS, RVT Interpreting Physician: Carina Call Location: [facility] Indications: Bilateral lower leg edema. CRITICAL RESULTS: [...] supine position. Images were obtained using a [employer] vascular ultrasound machine. Venous flow and imaging: [...] + + +----- (more content not included)... [employer] Work Phone: VL LOWER EXTREMITY BILATERAL VENOUS DUPLEXOrdered By: Carina Call on 10-21-2021 [employer] Work Phone: VL Venous Duplex US Lower Ex t Bilateralon 10-21-2021 VL Venous Duplex US Lower Ext Bilateral Patient Name: ANDREW SIFUENTES Ultrasound ACCESSION EXAM DATE/TIME PROCEDURE ORDERING PROVIDER [id number] 10/21/2021 09:53 EDT VL Venous Duplex US [id number] -AMY CASH Lower Ext Bilateral CPT code 63504 Reason For Exam (VL Venous Duplex US Lower Ext Bilateral) bilateral sqwelling redness Report [facility] Lower Extremity Venous Duplex Report Patient RADHA Sifuentes: 1950 Study 10/21/2021 Name: Andrew Gonzalez (71yrs) Date: Age: 71 Account: [id number] Gender: M Loc: 444 BP: Ordering Physician: May Cash Base Engineer: Rody Cross RDMS, RVT Interpreting Physician: Carina Call Location: [facility] Indications: Bilateral lower leg edema. CRITICAL RESULTS: [...] supine position. Images were obtained using a [employer] vascular ultrasound machine. Venous flow and imaging: [...] + + (more content not included)... Normal [employer] XR CALCANEUS LEFT (MIN 2 VIE WS)on 10-21-2021 Patient Name: ANDREW SIFUENTES Diagnostic Radiology ACCESSION EXAM DATE/TIME PROCEDURE ORDERING PROVIDER [id number] 10/21/2021 15:30 EDT CR Calcaneus 2+ Views [id number] -SHRUTHI MALIK CPT code 52919 Reason For Exam (CR Calcaneus 2+ Views [...] Radiology ACCESSION EXAM DATE/TIME PROCEDURE ORDERING PROVIDER [id number] 10/21/2021 15:30 EDT CR Calcaneus 2+ Views [id number] -SHRUTHI MALIK CPT code 91232 Reason For Exam (CR Calcaneus 2+ Views [...] 1 VWon 10-21-2021 [facility]: [id number] Diagnostic Radiology ACCESSION EXAM DATE/TIME PROCEDURE ORDERING PROVIDER [id number] 10/21/2021 08:16 EDT CR Chest 1 View Frontal [id number] FOSTER CPT code 97623 Reason For Exam (CR Chest 1 View [...] OSAMA Transcribed Date and Time: 10/21/2021 8:33 [facility] Venus Loyd MD - 10/21/2021 Patient Name: ANDREW SIFUENTES Diagnostic Radiology ACCESSION EXAM DATE/TIME PROCEDURE ORDERING PROVIDER [id number] 10/21/2021 08:16 EDT CR Chest 1 View Frontal [id number] CONTI CPT code 68142 Reason For Exam (CR Chest 1 View [...] 2021 Chloride [Moles/Vol] 108 mmol/L 98-107 [facility] Work Phone: Glucose [Mass/Vol] 93 mg/dL 74-106 [facility] Work Phone: Potassium [Moles/Vol] 3.9 mmol/L 3.5-5.1 [facility] Work Phone: Sodium [Moles/Vol] 140 mmol/L 136-145 [facility] Work Phone: WBC (Bld) [#/Vol] 8.7 10*3/uL 4.4-11.0 [facility] Work Phone: Blood erythrocytes count (nu mber/volume)on 10-20-2021 RBC (Bld) [#/Vol] 3.63 10*6/uL 4.6-6.2 [facility] Work Phone: Blood hemoglobin measurement (mass/volume)on 10-20-2021 Hemoglobin (Bld) [Mass/Vol] 10.1 g/dL 13.0-16.5 [facility] Work Phone: Blood platelet mean volumeon 10-20-2021 Platelet mean volume (Bld) [Entitic vol] 9.8 fL 6.2-12.0 [facility] Work Phone: Determination of erythrocyte mean corpuscular volume (MCV)on 10-20-2021 MCV (RBC) [Entitic vol] 90.1 fL 80-94 [facility] Work Phone: Hematocrit Auto (Bld) [Volum e fraction]on 10-20-2021 Hematocrit (Bld) [Volume fraction] 32.7 % 40-54 [facility] Work Phone: Laboratory - Chemistry and C hemistry - challengeon 10-20-2021 CO2 [Moles/Vol] 25.0 mmol/L 21.0-32.0 [facility] Work Phone: Urea nitrogen/Creatinine [Mass ratio] 17.4 mg/mg 10-20 [facility] Work Phone: Laboratory - Hematology and Cell countson 10-20-2021 Erythrocyte distribution width (RBC) [Entitic vol] 52.1 fL 35.1-43.9 [facility] Work Phone: Erythrocyte distribution width (RBC) [Ratio] 15.6 % 11.6-14.6 [facility] Work Phone: MCH (RBC) [Entitic mass] 27.8 pg 27.0-32.0 [facility] Work Phone: MCHC Auto (RBC) [Mass/Vol]on 10-20-2021 MCHC (RBC) [Mass/Vol] 30.9 g/dL 32-36 [facility] Work Phone: No Panel Informationon 10-20 Estimated GFR (MDRD) Amer 133 mL/min >60 [facility] Work Phone: Comment on above: GFR Calc Estimated GFR (MDRD) Non-Af Amer 110 mL/min >60 [facility] Work Phone: Comment on above: Non- GFR Calc Platelets bldon 10-20-2021 Platelets (Bld) [#/Vol] 404 10*3/uL 150-450 [facility] Work Phone: Serum or plasma calcium oral urement (mass/volume)on 10-20-2021 Calcium [Mass/Vol] 9.1 mg/dL 8.5-10.1 [facility] Work Phone: Serum or plasma creatinine m easurement (mass/volume)on 10-20-2021 Creatinine [Mass/Vol] 0.75 mg/dL 0.70-1.30 [facility] Work Phone: Comment on above: The validity of the calculated GFR & GFRAA in patients over 70 years has not been determined. Clinical correlation is essential. Serum or plasma urea nitroge n measurement (mass/volume)on 10-20-2021 Urea nitrogen [Mass/Vol] 13 mg/dL 7-18 [facility] Work Phone: Thin prep Papanicolaou smear with manual screeningon 10-20-2021 Thin prep Papanicolaou smear with manual screening 7 5-15 [facility] Work Phone: CNPNon 10-17-2021 CNPN Normal [facility] Absolute lymphocyte counton 09-19-2021 Lymphocytes Auto (Unsp spec) [#/Vol] 1.74 10*3/uL 0.83-4.51 [facility] Work Phone: Basophil percentageon 2021 Basophils/100 WBC (Bld) 0.6 % 0-1 [facility] Work Phone: [phone] Bilirubin [Mass/Vol] 0.30 mg/dL 0.20-1.00 [facility] Work Phone: Comment on above: For patients on eltr ombopag therapy, use of Dimension Romayor TBIL is not recommended. Chloride [Moles/Vol] 105 mmol/L 98-107 [facility] Work Phone: Eosinophils/100 WBC (Bld) 3.5 % 0-5 [facility] Work Phone: Glucose [Mass/Vol] 91 mg/dL 74-106 [facility] Work Phone: Neutrophils (Bld) [#/Vol] 4.2 10*3/uL 2.0-7.7 [facility] Work Phone: Neutrophils/100 WBC (Bld) 62.6 % 47-70 [facility] Work Phone: Potassium [Moles/Vol] 3.8 mmol/L 3.5-5.1 [facility] Work Phone: Protein [Mass/Vol] 6.3 g/dL 6.4-8.2 [facility] Work Phone: Sodium [Moles/Vol] 139 mmol/L 136-145 [facility] Work Phone: WBC (Bld) [#/Vol] 6.6 10*3/uL 4.4-11.0 [facility] Work Phone: Blood erythrocytes count (nu mber/volume)on 09-19-2021 RBC (Bld) [#/Vol] 3.47 10*6/uL 4.6-6.2 [facility] Work Phone: Blood hemoglobin measurement (mass/volume)on 09-19-2021 Hemoglobin (Bld) [Mass/Vol] 10.2 g/dL 13.0-16.5 [facility] Work Phone: Blood lymphocytes/100 leukoc yteson 09-19-2021 Lymphocytes/100 WBC (Bld) 26.2 % 19-41 [facility] Work Phone: Blood monocytes/100 leukocyt eson 09-19-2021 Monocytes/100 WBC (Bld) 6.5 % 0-10 [facility] Work Phone: Blood platelet mean volumeon 09-19-2021 Platelet mean volume (Bld) [Entitic vol] 9.6 fL 6.2-12.0 [facility] Work Phone: Determination of erythrocyte mean corpuscular volume (MCV)on 09-19-2021 MCV (RBC) [Entitic vol] 94.8 fL 80-94 [facility] Work Phone: Hematocrit Auto (Bld) [Volum e fraction]on 09-19-2021 Hematocrit (Bld) [Volume fraction] 32.9 % 40-54 [facility] Work Phone: Laboratory - Chemistry and C hemistry - challengeon 09-19-2021 ALP [Catalytic activity/Vol] 109 U/L 45-117 [facility] Work Phone: ALT [Catalytic activity/Vol] 23 U/L 16-61 [facility] Work Phone: CO2 [Moles/Vol] 26.0 mmol/L 21.0-32.0 [facility] Work Phone: Globulin (S) [Mass/Vol] 3.5 g/dL 2.2-4.2 [facility] Work Phone: Urea nitrogen/Creatinine [Mass ratio] 15.3 mg/mg 10-20 [facility] Work Phone: Laboratory - Hematology and Cell countson 09-19-2021 Erythrocyte distribution width (RBC) [Entitic vol] 59.4 fL 35.1-43.9 [facility] Work Phone: Erythrocyte distribution width (RBC) [Ratio] 17.1 % 11.6-14.6 [facility] Work Phone: Immature granulocytes/100 WBC (Bld) 0.600 % 0.0-0.9 [facility] Work Phone: Comment on above: IG% - Immature Granu locytes (promyelocytes, myelocytes and metamyelocytes) > 1% indicates that a LEFT SHIFT is Present. MCH (RBC) [Entitic mass] 29.4 pg 27.0-32.0 [facility] Work Phone: Nucleated RBC/100 WBC (Bld) [Ratio] 0 % 0-5 [facility] Work Phone: MCHC Auto (RBC) [Mass/Vol]on 09-19-2021 MCHC (RBC) [Mass/Vol] 31.0 g/dL 32-36 [facility] Work Phone: No Panel Informationon 09-19 Estimated GFR (MDRD) Amer 175 mL/min >60 [facility] Work Phone: Comment on above: GFR Calc Estimated GFR (MDRD) Non-Af Amer 145 mL/min >60 [facility] Work Phone: Comment on above: Non- GFR Calc Platelets bldon 09-19-2021 Platelets (Bld) [#/Vol] 342 10*3/uL 150-450 [facility] Work Phone: Serum or plasma albumin oral urement (mass/volume)on 05-16-2022 Albumin [Mass/Vol] 2.8 g/dL 3.2-5.0 [facility] Work Phone: Serum or plasma albumin/glob ulin mass ratioon 09-19-2021 Albumin/Globulin [Mass ratio] 0.8 {ratio} 0.9-2.4 [facility] Work Phone: Serum or plasma calcium oral urement (mass/volume)on 09-19-2021 Calcium [Mass/Vol] 9.0 mg/dL 8.5-10.1 [facility] Work Phone: Serum or plasma creatinine m easurement (mass/volume)on 09-19-2021 Creatinine [Mass/Vol] 0.59 mg/dL 0.70-1.30 [facility] Work Phone: Comment on above: The validity of the calculated GFR & GFRAA in patients over 70 years has not been determined. Clinical correlation is essential. Serum or plasma urea nitroge n measurement (mass/volume)on 09-19-2021 Urea nitrogen [Mass/Vol] 9 mg/dL 7-18 [facility] Work Phone: Thin prep Papanicolaou smear with manual screeningon 09-19-2021 Thin prep Papanicolaou smear with manual screening 12 U/L 15-37 [facility] Work Phone: Thin prep Papanicolaou smear with manual screening 8 5-15 [facility] Work Phone: OPERATIVE NOon 08-22-2021 OPERATIVE NO Normal [facility] Basic metabolic 2000 panelon 08-19-2021 Anion gap [Moles/Vol] 10 mmol/L Normal 9-18 [facility] Comment on above: Order Comment: Speci men Type: BLOOD SPECIMENOrdering Facility: [facility] Address: [address] [place] [address] Performed By: #### 2 4321-2 ####[facility] LABORATORYCLIA [id number] [place] [address] [place] Calcium [Mass/Vol] 8.6 mg/dL Normal 8.5-10.2 [facility] Comment on above: Order Comment: Speci men Type: BLOOD SPECIMENOrdering Facility: [facility] Address: [address] [place] [address] Performed By: #### 2 4321-2 ####[facility] LABORATORYCLIA [id number] [place] [address] [place] Chloride [Moles/Vol] 99 mmol/L Normal 97-105 [facility] Comment on above: Order Comment: Speci men Type: BLOOD SPECIMENOrdering Facility: [facility] Address: [address] [place] [address] Performed By: #### 2 4321-2 ####[facility] LABORATORYCLIA [id number] [address] [place] CO2 [Moles/Vol] 29 mmol/L Normal 22-30 [facility] Comment on above: Order Comment: Speci men Type: BLOOD SPECIMENOrdering Facility: [facility] Address: [address] [place] [address] Performed By: #### 2 4321-2 ####[facility] LABORATORYCLIA [id number] [address] [place] Creatinine [Mass/Vol] 0.58 mg/dL Low 0.73-1.22 [facility] Comment on above: Order Comment: Speci men Type: BLOOD SPECIMENOrdering Facility: [facility] Address: [address] [place] [address] Performed By: #### 2 4321-2 ####[facility] LABORATORYCLIA [id number] [address] ESTIMATED GLOMERULAR FILTRATION RATE 106 mL/min/1.73m??? Normal >=60 [facility] Comment on above: Order Comment: Speci men Type: BLOOD SPECIMENOrdering Facility: [facility] Address: [address] [place] [address] Result Comment: Luzmaria mated Glomerular Filtration Rate [...] actual GFR. Performed By: #### 2 4321-2 ####[facility] LABORATORYCLIA [id number] [place] [address] [place] Glucose [Mass/Vol] 101 mg/dL High 74-99 [facility] Comment on above: Order Comment: Shira feldman Type: BLOOD SPECIMENOrdering Facility: [facility] Address: [address] [place] [phone] Result Comment: The [place] [employer] (ADA) provides guidance for cutoff [...] Standards of Medical Care in Diabetes 2016, [place] [employer]. Diabetes Care. 2016.39(Suppl 1). Performed By: #### 2 4321-2 ####[facility]ORATORYCLIA [id number] [place] [address] [place] Potassium [Moles/Vol] 3.5 mmol/L Low 3.7-5.1 [facility] Comment on above: Order Comment: Shira feldman Type: BLOOD SPECIMENOrdering Facility: [facility] Address: [address] [place] [address] Performed By: #### 2 4321-2 ####[facility] LABORATORYCLIA [id number] [place] [address] [place] Sodium [Moles/Vol] 138 mmol/L Normal 136-144 [facility] Comment on above: Order Comment: Shira feldman Type: BLOOD SPECIMENOrdering Facility: [facility] Address: [address] [place] [address] Performed By: #### 2 4321-2 ####[facility] LABORATORYCLIA [id number] [address] [place] Urea nitrogen [Mass/Vol] 11 mg/dL Normal 9-24 [facility] Comment on above: Order Comment: Speci men Type: BLOOD SPECIMENOrdering Facility: [facility] Address: [address] [place] [address] Performed By: #### 2 4321-2 ####[facility] LABORATORYCLIA [id number] [address] [place] CASE MANAGEMon 08-19-2021 CASE MANAGEM Normal [facility] CBC W Auto Differential pane l (Bld)on 08-19-2021 Basophils (Bld) [#/Vol] 0.03 10*3/uL Normal <0.11 [facility] Comment on above: Order Comment: Speci men Type: BLOOD SPECIMENOrdering Facility: [facility] Address: [address] [place] [address] Performed By: #### 5 7021-8 ####[facility] LABORATORYCLIA [id number] [address] [place] Basophils/100 WBC (Bld) 0.4 % Normal [facility] Comment on above: Order Comment: Speci men Type: BLOOD SPECIMENOrdering Facility: [facility] Address: [address] [place] [address] Performed By: #### 5 7021-8 ####[facility]ORATORYCLIA [id number] [address] [place] Differential cell count method Nom (Bld) Auto Normal [facility] Comment on above: Order Comment: Speci men Type: BLOOD SPECIMENOrdering Facility: [facility] Address: [address] [place] [address] Performed By: #### 5 7021-8 ####[facility]ORATORYCLIA [id number] [address] [place] Eosinophils (Bld) [#/Vol] 0.24 10*3/uL Normal <0.46 [facility] Comment on above: Order Comment: Speci men Type: BLOOD SPECIMENOrdering Facility: [facility] Address: [address] [place] [address] Performed By: #### 5 7021-8 ####[facility] LABORATORYCLIA [id number] [address] Eosinophils/100 WBC (Bld) 3.1 % Normal [facility] Comment on above: Order Comment: Speci men Type: BLOOD SPECIMENOrdering Facility: [facility] Address: [address] [place] [address] Performed By: #### 5 7021-8 ####[facility] LABORATORYCLIA [id number] [address] Erythrocyte distribution width (RBC) [Ratio] 17.5 % High 11.5-15.0 [facility] Comment on above: Order Comment: Speci men Type: BLOOD SPECIMENOrdering Facility: [facility] Address: [address] [place] [address] Performed By: #### 5 7021-8 ####[facility] LABORATORYCLIA [id number] [address] [place] Hematocrit (Bld) [Volume fraction] 30.2 % Low 39.0-51.0 [facility] Comment on above: Order Comment: Speci men Type: BLOOD SPECIMENOrdering Facility: [facility] Address: [address] [place] [address] Performed By: #### 5 7021-8 ####[facility] LABORATORYCLIA [id number] [address] [place] Hemoglobin (Bld) [Mass/Vol] 9.6 g/dL Low 13.0-17.0 [facility] Comment on above: Order Comment: Speci men Type: BLOOD SPECIMENOrdering Facility: [facility] Address: [address] [place] [address] Performed By: #### 5 7021-8 ####[facility]ORATORYCLIA [id number] [address] IMMATURE GRAN % 0.4 % Normal [facility] Comment on above: Order Comment: Speci men Type: BLOOD SPECIMENOrdering Facility: [facility] Address: [address] [place] [address] Performed By: #### 5 7021-8 ####[facility]ORATORYCLIA [id number] [address] IMMATURE GRAN ABS 0.03 k/uL Normal <0.10 [facility] Comment on above: Order Comment: Speci men Type: BLOOD SPECIMENOrdering Facility: [facility] Address: [address] [place] [address] Performed By: #### 5 7021-8 ####[facility]ORATORYCLIA [id number] [address] Lymphocytes (Bld) [#/Vol] 1.71 10*3/uL Normal 1.00-4.00 [facility] Comment on above: Order Comment: Speci men Type: BLOOD SPECIMENOrdering Facility: [facility] Address: [address] [place] [address] Performed By: #### 5 7021-8 ####[facility]ORATORYCLIA [id number] [address] Lymphocytes/100 WBC (Bld) 22.2 % Normal [facility] Comment on above: Order Comment: Speci men Type: BLOOD SPECIMENOrdering Facility: [facility] Address: [address] [place] [address] Performed By: #### 5 7021-8 ####[facility]ORATORYCLIA [id number] [address] MCH (RBC) [Entitic mass] 29.4 pg Normal 26.0-34.0 [facility] Comment on above: Order Comment: Speci men Type: BLOOD SPECIMENOrdering Facility: [facility] Address: [address] [place] [address] Performed By: #### 5 7021-8 ####[facility] LABORATORYCLIA [id number] [address] [place] [facility] MCHC (RBC) [Mass/Vol] 31.8 g/dL Normal 30.5-36.0 [facility] Comment on above: Order Comment: Speci men Type: BLOOD SPECIMENOrdering Facility: [facility] Address: [address] [place] [address] Performed By: #### 5 7021-8 ####[facility]ORATORYCLIA [id number] [address] [place] MCV (RBC) [Entitic vol] 92.6 fL Normal 80.0-100.0 [facility] Comment on above: Order Comment: Speci men Type: BLOOD SPECIMENOrdering Facility: [facility] Address: [address] [place] [address] Performed By: #### 5 7021-8 ####[facility]ORATORYCLIA [id number] [address] [place] Monocytes (Bld) [#/Vol] 0.50 10*3/uL Normal <0.87 [facility] Comment on above: Order Comment: Speci men Type: BLOOD SPECIMENOrdering Facility: [facility] Address: [address] [place] [address] Performed By: #### 5 7021-8 ####[facility]ORATORYCLIA [id number] [address] Monocytes/100 WBC (Bld) 6.5 % Normal [facility] Comment on above: Order Comment: Speci men Type: BLOOD SPECIMENOrdering Facility: [facility] Address: [address] [place] [address] Performed By: #### 5 7021-8 ####[facility]ORATORYCLIA [id number] [address] [place] Neutrophils (Bld) [#/Vol] 5.20 10*3/uL Normal 1.45-7.50 [facility] Comment on above: Order Comment: Speci men Type: BLOOD SPECIMENOrdering Facility: [facility] Address: [address] [place] [address] Performed By: #### 5 7021-8 ####[facility]ORATORYCLIA [id number] [address] Neutrophils/100 WBC (Bld) 67.4 % Normal [facility] Comment on above: Order Comment: Speci men Type: BLOOD SPECIMENOrdering Facility: [facility] Address: [address] [place] [address] Performed By: #### 5 7021-8 ####[facility]ORATORYCLIA [id number] [address] [place] Nucleated RBC (Bld) [#/Vol] 10*3/uL Normal <0.01 [facility] Comment on above: Order Comment: Speci men Type: BLOOD SPECIMENOrdering Facility: [facility] Address: [address] [place] [address] Performed By: #### 5 7021-8 ####[facility]ORATORYCLIA [id number] [address] STATES [facility] Nucleated RBC/100 WBC (Bld) [Ratio] 0.0 /100 WBC Normal [facility] Comment on above: Order Comment: Speci men Type: BLOOD SPECIMENOrdering Facility: [facility] Address: [address] [place] [address] Performed By: #### 5 7021-8 ####[facility]ORATORYCLIA [id number] [place] [address] [place] Platelet mean volume (Bld) [Entitic vol] 8.9 fL Low 9.0-12.7 [facility] Comment on above: Order Comment: Speci men Type: BLOOD SPECIMENOrdering Facility: [facility] Address: [address] [place] [address] Performed By: #### 5 7021-8 ####[facility]ORATORYCLIA [id number] [address] [place] Platelets (Bld) [#/Vol] 408 10*3/uL High 150-400 [facility] Comment on above: Order Comment: Speci men Type: BLOOD SPECIMENOrdering Facility: [facility] Address: [address] [place] [address] Performed By: #### 5 7021-8 ####[facility]ORATORYCLIA [id number] [address] [place] RBC (Bld) [#/Vol] 3.26 10*6/uL Low 4.20-6.00 [facility] Comment on above: Order Comment: Speci men Type: BLOOD SPECIMENOrdering Facility: [facility] Address: [address] [place] [address] Performed By: #### 5 7021-8 ####[facility]ORATORYCLIA [id number] [address] [place] [facility] WBC (Bld) [#/Vol] 7.71 10*3/uL Normal 3.70-11.00 [facility] Comment on above: Order Comment: Speci men Type: BLOOD SPECIMENOrdering Facility: [facility] Address: [address] [place] [address] Performed By: #### 5 7021-8 ####[facility] LABORATORYCLIA [id number] [address] [place] CNDSon 08-19-2021 CNDS Normal [facility] CONSULT PROGon 08-19-2021 CONSULT PROG Normal [facility] THERAPY NTon 08-19-2021 THERAPY NT Normal [facility] Basic metabolic 2000 panelon 08-18-2021 Anion gap [Moles/Vol] 11 mmol/L Normal 9-18 [facility] Comment on above: Order Comment: Speci men Type: BLOOD SPECIMENOrdering Facility: [facility] Address: [address] [place] [address] Performed By: #### 2 4321-2 ####[facility]ORATORYCLIA [id number] [place] [address] [place] Calcium [Mass/Vol] 8.6 mg/dL Normal 8.5-10.2 [facility] Comment on above: Order Comment: Speci men Type: BLOOD SPECIMENOrdering Facility: [facility] Address: [address] [place] [address] Performed By: #### 2 4321-2 ####[facility]ORATORYCLIA [id number] [place] [address] [place] Chloride [Moles/Vol] 98 mmol/L Normal 97-105 [facility] Comment on above: Order Comment: Speci men Type: BLOOD SPECIMENOrdering Facility: [facility] Address: [address] [place] [address] Performed By: #### 2 4321-2 ####[facility]ORATORYCLIA [id number] [address] [place] CO2 [Moles/Vol] 28 mmol/L Normal 22-30 [facility] Comment on above: Order Comment: Speci men Type: BLOOD SPECIMENOrdering Facility: [facility] Address: [address] [place] [address] Performed By: #### 2 4321-2 ####[facility]ORATORYCLIA [id number] [address] [place] Creatinine [Mass/Vol] 0.56 mg/dL Low 0.73-1.22 [facility] Comment on above: Order Comment: Speci men Type: BLOOD SPECIMENOrdering Facility: [facility] Address: [address] [place] [address] Performed By: #### 2 4321-2 ####[facility]ORATORYCLIA [id number] [address] ESTIMATED GLOMERULAR FILTRATION RATE 107 mL/min/1.73m??? Normal >=60 [facility] Comment on above: Order Comment: Speci men Type: BLOOD SPECIMENOrdering Facility: [facility] Address: [address] [phone] Result Comment: Luzmaria mated Glomerular Filtration Rate [...] GFR. Performed By: #### 2 4321-2 ####[facility]GIA [id number] [place] [address] [place] Glucose [Mass/Vol] 113 mg/dL High 74-99 [facility] Comment on above: Order Comment: Shira feldman Type: BLOOD SPECIMENOrdering Facility: [facility] Address: [address] [address] Result Comment: The [place] [employer] (ADA) provides guidance for cutoff [...] Standards of Medical Care in Diabetes 2016, [place] [employer]. Diabetes Care. 2016.39(Suppl 1). Performed By: #### 2 4321-2 ####[facility]ORATORYCLIA [id number] [place] [address] [place] Potassium [Moles/Vol] 3.5 mmol/L Low 3.7-5.1 [facility] Comment on above: Order Comment: Shira feldman Type: BLOOD SPECIMENOrdering Facility: [facility] Address: [address] [phone] Performed By: #### 2 4321-2 ####[facility]ORATORYCLIA [id number] [place] [address] [place] Sodium [Moles/Vol] 137 mmol/L Normal 136-144 [facility] Comment on above: Order Comment: Speci men Type: BLOOD SPECIMENOrdering Facility: [facility] Address: [address] [place] [address] Performed By: #### 2 4321-2 ####[facility]ORATORYCLIA [id number] [place] [address] [place] Urea nitrogen [Mass/Vol] 10 mg/dL Normal 9-24 [facility] Comment on above: Order Comment: Speci men Type: BLOOD SPECIMENOrdering Facility: [facility] Address: [address] [place] [address] Performed By: #### 2 4321-2 ####[facility]ORATORYCLIA [id number] [address] [place] CBC W Auto Differential pane l (Bld)on 08-18-2021 Basophils (Bld) [#/Vol] 10*3/uL Normal <0.11 [facility] Comment on above: Order Comment: Speci men Type: BLOOD SPECIMENOrdering Facility: [facility] Address: [address] [place] [address] Performed By: #### 5 7021-8 ####[facility]ORATORYCLIA [id number] [address] [place] Basophils/100 WBC (Bld) 0.3 % Normal [facility] Comment on above: Order Comment: Speci men Type: BLOOD SPECIMENOrdering Facility: [facility] Address: [address] [place] [address] Performed By: #### 5 7021-8 ####[facility]ORATORYCLIA [id number] [address] STATES [facility] Differential cell count method Nom (Bld) Auto Normal [facility] Comment on above: Order Comment: Speci men Type: BLOOD SPECIMENOrdering Facility: [facility] Address: [address] [place] [address] Performed By: #### 5 7021-8 ####[facility]ORATORYCLIA [id number] [address] [place] Eosinophils (Bld) [#/Vol] 0.37 10*3/uL Normal <0.46 [facility] Comment on above: Order Comment: Speci men Type: BLOOD SPECIMENOrdering Facility: [facility] Address: [address] [place] [address] Performed By: #### 5 7021-8 ####[facility]ORATORYCLIA [id number] [address] Eosinophils/100 WBC (Bld) 4.8 % Normal [facility] Comment on above: Order Comment: Speci men Type: BLOOD SPECIMENOrdering Facility: [facility] Address: [address] [place] [address] Performed By: #### 5 7021-8 ####[facility]ORATORYCLIA [id number] [address] Erythrocyte distribution width (RBC) [Ratio] 17.5 % High 11.5-15.0 [facility] Comment on above: Order Comment: Speci men Type: BLOOD SPECIMENOrdering Facility: [facility] Address: [address] [place] [address] Performed By: #### 5 7021-8 ####[facility]ORATORYCLIA [id number] [address] [place] Hematocrit (Bld) [Volume fraction] 30.2 % Low 39.0-51.0 [facility] Comment on above: Order Comment: Speci men Type: BLOOD SPECIMENOrdering Facility: [facility] Address: [address] [place] [address] Performed By: #### 5 7021-8 ####[facility]ORATORYCLIA [id number] [address] [place] Hemoglobin (Bld) [Mass/Vol] 9.5 g/dL Low 13.0-17.0 [facility] Comment on above: Order Comment: Speci men Type: BLOOD SPECIMENOrdering Facility: [facility] Address: [address] [place] [address] Performed By: #### 5 7021-8 ####[facility]ORATORYCLIA [id number] [address] IMMATURE GRAN % 0.4 % Normal [facility] Comment on above: Order Comment: Speci men Type: BLOOD SPECIMENOrdering Facility: [facility] Address: [address] [place] [address] Performed By: #### 5 7021-8 ####[facility]ORATORYCLIA [id number] [address] IMMATURE GRAN ABS 0.03 k/uL Normal <0.10 [facility] Comment on above: Order Comment: Speci men Type: BLOOD SPECIMENOrdering Facility: [facility] Address: [address] [place] [address] Performed By: #### 5 7021-8 ####[facility]ORATORYCLIA [id number] [address] Lymphocytes (Bld) [#/Vol] 1.85 10*3/uL Normal 1.00-4.00 [facility] Comment on above: Order Comment: Speci men Type: BLOOD SPECIMENOrdering Facility: [facility] Address: [address] [place] [address] Performed By: #### 5 7021-8 ####[facility]ORATORYCLIA [id number] [address] Lymphocytes/100 WBC (Bld) 23.8 % Normal [facility] Comment on above: Order Comment: Speci men Type: BLOOD SPECIMENOrdering Facility: [facility] Address: [address] [place] [address] Performed By: #### 5 7021-8 ####[facility]ORATORYCLIA [id number] [address] [place] MCH (RBC) [Entitic mass] 29.5 pg Normal 26.0-34.0 [facility] Comment on above: Order Comment: Speci men Type: BLOOD SPECIMENOrdering Facility: [facility] Address: [address] [place] [address] Performed By: #### 5 7021-8 ####[facility]ORATORYCLIA [id number] [address] [place] MCHC (RBC) [Mass/Vol] 31.5 g/dL Normal 30.5-36.0 [facility] Comment on above: Order Comment: Speci men Type: BLOOD SPECIMENOrdering Facility: [facility] Address: [address] [place] [address] Performed By: #### 5 7021-8 ####[facility]ORATORYCLIA [id number] [address] [place] MCV (RBC) [Entitic vol] 93.8 fL Normal 80.0-100.0 [facility] Comment on above: Order Comment: Speci men Type: BLOOD SPECIMENOrdering Facility: [facility] Address: [address] [place] [address] Performed By: #### 5 7021-8 ####[facility]ORATORYCLIA [id number] [address] OF [facility] Monocytes (Bld) [#/Vol] 0.49 10*3/uL Normal <0.87 [facility] Comment on above: Order Comment: Speci men Type: BLOOD SPECIMENOrdering Facility: [facility] Address: [address] [place] [address] Performed By: #### 5 7021-8 ####[facility]ORATORYCLIA [id number] [address] Monocytes/100 WBC (Bld) 6.3 % Normal [facility] Comment on above: Order Comment: Speci men Type: BLOOD SPECIMENOrdering Facility: [facility] Address: [address] [place] [address] Performed By: #### 5 7021-8 ####[facility]ORATORYCLIA [id number] [address] [place] Neutrophils (Bld) [#/Vol] 5.00 10*3/uL Normal 1.45-7.50 [facility] Comment on above: Order Comment: Speci men Type: BLOOD SPECIMENOrdering Facility: [facility] Address: [address] [address] Performed By: #### 5 7021-8 ####[facility]ORATORYCLIA [id number] [address] [place] Neutrophils/100 WBC (Bld) 64.4 % Normal [facility] Comment on above: Order Comment: Speci men Type: BLOOD SPECIMENOrdering Facility: [facility] Address: [address] [place] [address] Performed By: #### 5 7021-8 ####[facility]ORATORYCLIA [id number] [address] [place] Nucleated RBC (Bld) [#/Vol] 10*3/uL Normal <0.01 [facility] Comment on above: Order Comment: Speci men Type: BLOOD SPECIMENOrdering Facility: [facility] Address: [address] [place] [address] Performed By: #### 5 7021-8 ####[facility]ORATORYCLIA [id number] [address] [place] Nucleated RBC/100 WBC (Bld) [Ratio] 0.0 /100 WBC Normal [facility] Comment on above: Order Comment: Speci men Type: BLOOD SPECIMENOrdering Facility: [facility] Address: [address] [place] [address] Performed By: #### 5 7021-8 ####[facility]ORATORYCLIA [id number] [address] OF [place] Platelet mean volume (Bld) [Entitic vol] 9.1 fL Normal 9.0-12.7 [facility] Comment on above: Order Comment: Speci men Type: BLOOD SPECIMENOrdering Facility: [facility] Address: [address] [place], [place] [id number] Performed By: #### 5 7021-8 ####[facility] LABORATORYCLIA [id number] [address] [place] Platelets (Bld) [#/Vol] 391 10*3/uL Normal 150-400 [facility] Comment on above: Order Comment: Speci men Type: BLOOD SPECIMENOrdering Facility: [facility] Address: [address] [place] [address] Performed By: #### 5 7021-8 ####[facility] LABORATORYCLIA [id number] [address] [place] RBC (Bld) [#/Vol] 3.22 10*6/uL Low 4.20-6.00 [facility] Comment on above: Order Comment: Speci men Type: BLOOD SPECIMENOrdering Facility: [facility] Address: [address] [place] [address] Performed By: #### 5 7021-8 ####[facility] LABORATORYCLIA [id number] [address] OF [facility] WBC (Bld) [#/Vol] 7.76 10*3/uL Normal 3.70-11.00 [facility] Comment on above: Order Comment: Speci men Type: BLOOD SPECIMENOrdering Facility: [facility] Address: [address] [place] [address] Performed By: #### 5 7021-8 ####[facility] LABORATORYCLIA [id number] [address] CONSULT PROGon 08-18-2021 CONSULT PROG Normal [facility] CASE MANAGEMon 08-17-2021 CASE MANAGEM Normal [facility] CBC W Auto Differential pane l (Bld)on 08-17-2021 Basophils (Bld) [#/Vol] 0.04 10*3/uL Normal <0.11 [facility] Comment on above: Order Comment: Speci men Type: BLOOD SPECIMENOrdering Facility: [facility] Address: [address] [place], [place] [address] Performed By: #### 5 7021-8 ####[facility]ORATORYCLIA [id number] [address] Basophils/100 WBC (Bld) 0.5 % Normal [facility] Comment on above: Order Comment: Speci men Type: BLOOD SPECIMENOrdering Facility: [facility] Address: [address] [place] [address] Performed By: #### 5 7021-8 ####[facility] LABORATORYCLIA [id number] [address] [place] Differential cell count method Nom (Bld) Auto Normal [facility] Comment on above: Order Comment: Speci men Type: BLOOD SPECIMENOrdering Facility: [facility] Address: [address] [place] [address] Performed By: #### 5 7021-8 ####[facility] LABORATORYCLIA [id number] [address] [place] Eosinophils (Bld) [#/Vol] 0.31 10*3/uL Normal <0.46 [facility] Comment on above: Order Comment: Speci men Type: BLOOD SPECIMENOrdering Facility: [facility] Address: [address] [place] [address] Performed By: #### 5 7021-8 ####[facility] LABORATORYCLIA [id number] [address] Eosinophils/100 WBC (Bld) 3.7 % Normal [facility] Comment on above: Order Comment: Speci men Type: BLOOD SPECIMENOrdering Facility: [facility] Address: [address] [place] [address] Performed By: #### 5 7021-8 ####[facility] LABORATORYCLIA [id number] [address] [place] Erythrocyte distribution width (RBC) [Ratio] 17.4 % High 11.5-15.0 [facility] Comment on above: Order Comment: Speci men Type: BLOOD SPECIMENOrdering Facility: [facility] Address: [address] [place] [address] Performed By: #### 5 7021-8 ####[facility] LABORATORYCLIA [id number] [address] Hematocrit (Bld) [Volume fraction] 30.6 % Low 39.0-51.0 [facility] Comment on above: Order Comment: Speci men Type: BLOOD SPECIMENOrdering Facility: [facility] Address: [address] [place] [address] Performed By: #### 5 7021-8 ####[facility] LABORATORYCLIA [id number] [address] Hemoglobin (Bld) [Mass/Vol] 9.6 g/dL Low 13.0-17.0 [facility] Comment on above: Order Comment: Speci men Type: BLOOD SPECIMENOrdering Facility: [facility] Address: [address] [place] [address] Performed By: #### 5 7021-8 ####[facility] LABORATORYCLIA [id number] [address] IMMATURE GRAN % 0.2 % Normal [facility] Comment on above: Order Comment: Speci men Type: BLOOD SPECIMENOrdering Facility: [facility] Address: [address] [place] [address] Performed By: #### 5 7021-8 ####[facility] LABORATORYCLIA [id number] [address] IMMATURE GRAN ABS <0.03 Normal <0.10 [facility] Comment on above: Order Comment: Speci men Type: BLOOD SPECIMENOrdering Facility: [facility] Address: [address] [place] [address] Performed By: #### 5 7021-8 ####[facility] LABORATORYCLIA [id number] [address] [place] Lymphocytes (Bld) [#/Vol] 1.66 10*3/uL Normal 1.00-4.00 [facility] Comment on above: Order Comment: Speci men Type: BLOOD SPECIMENOrdering Facility: [facility] Address: [address] [place] [address] Performed By: #### 5 7021-8 ####[facility] LABORATORYCLIA [id number] [address] Lymphocytes/100 WBC (Bld) 19.9 % Normal [facility] Comment on above: Order Comment: Speci men Type: BLOOD SPECIMENOrdering Facility: [facility] Address: [address] [place] [address] Performed By: #### 5 7021-8 ####[facility] LABORATORYCLIA [id number] [address] MCH (RBC) [Entitic mass] 28.9 pg Normal 26.0-34.0 [facility] Comment on above: Order Comment: Speci men Type: BLOOD SPECIMENOrdering Facility: [facility] Address: [address] [place] [address] Performed By: #### 5 7021-8 ####[facility] LABORATORYCLIA [id number] [address] MCHC (RBC) [Mass/Vol] 31.4 g/dL Normal 30.5-36.0 [facility] Comment on above: Order Comment: Speci men Type: BLOOD SPECIMENOrdering Facility: [facility] Address: [address] [place] [address] Performed By: #### 5 7021-8 ####[facility] LABORATORYCLIA [id number] [address] STATES [facility] MCV (RBC) [Entitic vol] 92.2 fL Normal 80.0-100.0 [facility] Comment on above: Order Comment: Speci men Type: BLOOD SPECIMENOrdering Facility: [facility] Address: [address] [place] [address] Performed By: #### 5 7021-8 ####[facility] LABORATORYCLIA [id number] [place] [address] [place] Monocytes (Bld) [#/Vol] 0.52 10*3/uL Normal <0.87 [facility] Comment on above: Order Comment: Speci men Type: BLOOD SPECIMENOrdering Facility: [facility] Address: [address] [place] [address] Performed By: #### 5 7021-8 ####[facility] LABORATORYCLIA [id number] [address] [place] Monocytes/100 WBC (Bld) 6.2 % Normal [facility] Comment on above: Order Comment: Speci men Type: BLOOD SPECIMENOrdering Facility: [facility] Address: [address] [place] [address] Performed By: #### 5 7021-8 ####[facility] LABORATORYCLIA [id number] [address] [place] Neutrophils (Bld) [#/Vol] 5.78 10*3/uL Normal 1.45-7.50 [facility] Comment on above: Order Comment: Speci men Type: BLOOD SPECIMENOrdering Facility: [facility] Address: [address] [place] [address] Performed By: #### 5 7021-8 ####[facility] LABORATORYCLIA [id number] [address] [place] Neutrophils/100 WBC (Bld) 69.5 % Normal [facility] Comment on above: Order Comment: Speci men Type: BLOOD SPECIMENOrdering Facility: [facility] Address: [address] [place] [address] Performed By: #### 5 7021-8 ####[facility] LABORATORYCLIA [id number] [place] [address] [place] Nucleated RBC (Bld) [#/Vol] 10*3/uL Normal <0.01 [facility] Comment on above: Order Comment: Speci men Type: BLOOD SPECIMENOrdering Facility: [facility] Address: [address] [place] [address] Performed By: #### 5 7021-8 ####[facility] LABORATORYCLIA [id number] [address] Nucleated RBC/100 WBC (Bld) [Ratio] 0.0 /100 WBC Normal [facility] Comment on above: Order Comment: Speci men Type: BLOOD SPECIMENOrdering Facility: [facility] Address: [address] [place] [address] Performed By: #### 5 7021-8 ####[facility] LABORATORYCLIA [id number] [address] [place] Platelet mean volume (Bld) [Entitic vol] 9.2 fL Normal 9.0-12.7 [facility] Comment on above: Order Comment: Speci men Type: BLOOD SPECIMENOrdering Facility: [facility] Address: [address] [place] [address] Performed By: #### 5 7021-8 ####[facility] LABORATORYCLIA [id number] [address] [place] Platelets (Bld) [#/Vol] 379 10*3/uL Normal 150-400 [facility] Comment on above: Order Comment: Speci men Type: BLOOD SPECIMENOrdering Facility: [facility] Address: [address] [place] [address] Performed By: #### 5 7021-8 ####[facility] LABORATORYCLIA [id number] [address] [place] RBC (Bld) [#/Vol] 3.32 10*6/uL Low 4.20-6.00 [facility] Comment on above: Order Comment: Speci men Type: BLOOD SPECIMENOrdering Facility: [facility] Address: [address] [place] [address] Performed By: #### 5 7021-8 ####[facility] LABORATORYCLIA [id number] [address] [place] WBC (Bld) [#/Vol] 8.33 10*3/uL Normal 3.70-11.00 [facility] Comment on above: Order Comment: Speci men Type: BLOOD SPECIMENOrdering Facility: [facility] Address: [address] [place] [address] Performed By: #### 5 7021-8 ####[facility] LABORATORYCLIA [id number] [place] [address] [place] CONSULT PROGon 08-17-2021 CONSULT PROG Normal [facility] NUTRITIONon 08-17-2021 NUTRITION Normal [facility] Basic metabolic 2000 panelon 08-16-2021 Anion gap [Moles/Vol] 14 mmol/L Normal 9-18 [facility] Comment on above: Order Comment: Speci men Type: BLOOD SPECIMENOrdering Facility: [facility] Address: [address] [place] [address] Performed By: #### 2 4321-2, ####[facility] LABORATORYCLIA [id number] [place] [address] [place] Calcium [Mass/Vol] 8.8 mg/dL Normal 8.5-10.2 [facility] Comment on above: Order Comment: Speci men Type: BLOOD SPECIMENOrdering Facility: [facility] Address: [address] [place] [address] Performed By: #### 2 4321-2, ####[facility] LABORATORYCLIA [id number] [place] [address] [place] Chloride [Moles/Vol] 97 mmol/L Normal 97-105 [facility] Comment on above: Order Comment: Speci men Type: BLOOD SPECIMENOrdering Facility: [facility] Address: [address] [place] [address] Performed By: #### 2 4321-2, ####[facility] LABORATORYCLIA [id number] [place] [address] [place] CO2 [Moles/Vol] 27 mmol/L Normal 22-30 [facility] Comment on above: Order Comment: Speci men Type: BLOOD SPECIMENOrdering Facility: [facility] Address: [address] [address] Performed By: #### 2 432-, ####[facility]REM[facility]CLIA [id number] [address] STATES OF [facility] Creatinine [Mass/Vol] 0.50 mg/dL Low 0.73-1.22 [facility] Comment on above: Order Comment: Speci men Type: BLOOD SPECIMENOrdering Facility: [facility] Address: [address] [place] [address] Performed By: #### 2 43205-08, ####[facility]GIA [id number] [address] ESTIMATED GLOMERULAR FILTRATION RATE 110 mL/min/1.73m??? Normal >=60 [facility] Comment on above: Order Comment: Shira francia Type: BLOOD SPECIMENOrdering Facility: [facility] Address: [address] [place] [address] Result Comment: Luzmaria mated Glomerular Filtration Rate [...] GFR. Performed By: #### 2 4321-, ####[facility]IA [id number] [address] [place] Glucose [Mass/Vol] 101 mg/dL High 74-99 [facility] Comment on above: Order Comment: Shira feldman Type: BLOOD SPECIMENOrdering Facility: [facility] Address: [address] [place] [address] Result Comment: The [place] [employer] (ADA) provides guidance for cutoff [...] Standards of Medical Care in Diabetes 2016, [place] [employer]. Diabetes Care. 2016.39(Suppl 1). Performed By: #### 2 4320-06, ####[facility] LABORATORYCLIA [id number] [place] [address] [place] Potassium [Moles/Vol] 3.6 mmol/L Low 3.7-5.1 [facility] Comment on above: Order Comment: Shira feldman Type: BLOOD SPECIMENOrdering Facility: [facility] Address: [address] [place] [address] Performed By: #### 2 4320-06, ####[facility]REM[facility]CLIA [id number] [address] STATES OF [facility] Sodium [Moles/Vol] 138 mmol/L Normal 136-144 [facility] Comment on above: Order Comment: Shira feldman Type: BLOOD SPECIMENOrdering Facility: [facility] Address: [address] [place] [address] Performed By: #### 2 4320-06, ####[facility] LABORATORYCLIA [id number] [address] [place] Urea nitrogen [Mass/Vol] 11 mg/dL Normal 9-24 [facility] Comment on above: Order Comment: Shira feldman Type: BLOOD SPECIMENOrdering Facility: [facility] Address: [address] [place] [address] Performed By: #### 2 4320-06, ####[facility] LABORATORYCLIA [id number] [address] [place] CASE MANAGEMon 08-16-2021 CASE MANAGEM Normal [facility] CBC W Auto Differential pane l (Bld)on 08-16-2021 Basophils (Bld) [#/Vol] 0.03 10*3/uL Normal <0.11 [facility] Comment on above: Order Comment: Speci men Type: BLOOD SPECIMENOrdering Facility: [facility] Address: [address] [address] Performed By: #### 5 7021-8 ####[facility]ORATORYCLIA [id number] [place] [address] [place] Basophils/100 WBC (Bld) 0.4 % Normal [facility] Comment on above: Order Comment: Speci men Type: BLOOD SPECIMENOrdering Facility: [facility] Address: [address] [place] [address] Performed By: #### 5 7021-8 ####[facility] LABORATORYCLIA [id number] [address] [place] Differential cell count method Nom (Bld) Auto Normal [facility] Comment on above: Order Comment: Speci men Type: BLOOD SPECIMENOrdering Facility: [facility] Address: [address] [place] [address] Performed By: #### 5 7021-8 ####[facility] LABORATORYCLIA [id number] [place] [address] [place] Eosinophils (Bld) [#/Vol] 0.19 10*3/uL Normal <0.46 [facility] Comment on above: Order Comment: Speci men Type: BLOOD SPECIMENOrdering Facility: [facility] Address: [address] [place] [address] Performed By: #### 5 7021-8 ####[facility] LABORATORYCLIA [id number] [address] [place] Eosinophils/100 WBC (Bld) 2.5 % Normal [facility] Comment on above: Order Comment: Speci men Type: BLOOD SPECIMENOrdering Facility: [facility] Address: [address] [place] [address] Performed By: #### 5 7021-8 ####[facility] LABORATORYCLIA [id number] [address] Erythrocyte distribution width (RBC) [Ratio] 17.1 % High 11.5-15.0 [facility] Comment on above: Order Comment: Speci men Type: BLOOD SPECIMENOrdering Facility: [facility] Address: [address] [place] [address] Performed By: #### 5 7021-8 ####[facility] LABORATORYCLIA [id number] [address] STATES OF [facility] Hematocrit (Bld) [Volume fraction] 29.2 % Low 39.0-51.0 [facility] Comment on above: Order Comment: Speci men Type: BLOOD SPECIMENOrdering Facility: [facility] Address: [address] [place] [address] Performed By: #### 5 7021-8 ####[facility] LABORATORYCLIA [id number] [address] Hemoglobin (Bld) [Mass/Vol] 9.0 g/dL Low 13.0-17.0 [facility] Comment on above: Order Comment: Speci men Type: BLOOD SPECIMENOrdering Facility: [facility] Address: [address] [place] [address] Performed By: #### 5 7021-8 ####[facility] LABORATORYCLIA [id number] [address] IMMATURE GRAN % 0.3 % Normal [facility] Comment on above: Order Comment: Speci men Type: BLOOD SPECIMENOrdering Facility: [facility] Address: [address] [place] [address] Performed By: #### 5 7021-8 ####[facility] LABORATORYCLIA [id number] [address] IMMATURE GRAN ABS <0.03 Normal <0.10 [facility] Comment on above: Order Comment: Speci men Type: BLOOD SPECIMENOrdering Facility: [facility] Address: [address] [address] Performed By: #### 5 7021-8 ####[facility] LABORATORYCLIA [id number] [address] [place] Lymphocytes (Bld) [#/Vol] 1.41 10*3/uL Normal 1.00-4.00 [facility] Comment on above: Order Comment: Speci men Type: BLOOD SPECIMENOrdering Facility: [facility] Address: [address] [place] [address] Performed By: #### 5 7021-8 ####[facility] LABORATORYCLIA [id number] [address] Lymphocytes/100 WBC (Bld) 18.4 % Normal [facility] Comment on above: Order Comment: Speci men Type: BLOOD SPECIMENOrdering Facility: [facility] Address: [address] [place] [address] Performed By: #### 5 7021-8 ####[facility] LABORATORYCLIA [id number] [address] [place] [facility] MCH (RBC) [Entitic mass] 28.0 pg Normal 26.0-34.0 [facility] Comment on above: Order Comment: Speci men Type: BLOOD SPECIMENOrdering Facility: [facility] Address: [address] [place] [address] Performed By: #### 5 7021-8 ####[facility] LABORATORYCLIA [id number] [address] [place] MCHC (RBC) [Mass/Vol] 30.8 g/dL Normal 30.5-36.0 [facility] Comment on above: Order Comment: Speci men Type: BLOOD SPECIMENOrdering Facility: [facility] Address: [address] [place] [address] Performed By: #### 5 7021-8 ####[facility] LABORATORYCLIA [id number] [address] [place] MCV (RBC) [Entitic vol] 91.0 fL Normal 80.0-100.0 [facility] Comment on above: Order Comment: Speci men Type: BLOOD SPECIMENOrdering Facility: [facility] Address: [address] [place] [address] Performed By: #### 5 7021-8 ####[facility] LABORATORYCLIA [id number] [place] [address] [place] Monocytes (Bld) [#/Vol] 0.47 10*3/uL Normal <0.87 [facility] Comment on above: Order Comment: Speci men Type: BLOOD SPECIMENOrdering Facility: [facility] Address: [address] [place] [address] Performed By: #### 5 7021-8 ####[facility] LABORATORYCLIA [id number] [place] [address] [place] Monocytes/100 WBC (Bld) 6.1 % Normal [facility] Comment on above: Order Comment: Speci men Type: BLOOD SPECIMENOrdering Facility: [facility] Address: [address] [place] [address] Performed By: #### 5 7021-8 ####[facility]ORATORYCLIA [id number] [place] [address] [place] Neutrophils (Bld) [#/Vol] 5.55 10*3/uL Normal 1.45-7.50 [facility] Comment on above: Order Comment: Speci men Type: BLOOD SPECIMENOrdering Facility: [facility] Address: [address] [place] [address] Performed By: #### 5 7021-8 ####[facility]ORATORYCLIA [id number] [place] [address] [place] Neutrophils/100 WBC (Bld) 72.3 % Normal [facility] Comment on above: Order Comment: Speci men Type: BLOOD SPECIMENOrdering Facility: [facility] Address: [address] [place] [address] Performed By: #### 5 7021-8 ####[facility]ORATORYCLIA [id number] [address] [place] Nucleated RBC (Bld) [#/Vol] 10*3/uL Normal <0.01 [facility] Comment on above: Order Comment: Speci men Type: BLOOD SPECIMENOrdering Facility: [facility] Address: [address] [place] [address] Performed By: #### 5 7021-8 ####[facility] LABORATORYCLIA [id number] [address] [place] Nucleated RBC/100 WBC (Bld) [Ratio] 0.0 /100 WBC Normal [facility] Comment on above: Order Comment: Speci men Type: BLOOD SPECIMENOrdering Facility: [facility] Address: [address] [place] [address] Performed By: #### 5 7021-8 ####[facility] LABORATORYCLIA [id number] [address] [place] Platelet mean volume (Bld) [Entitic vol] 9.3 fL Normal 9.0-12.7 [facility] Comment on above: Order Comment: Speci men Type: BLOOD SPECIMENOrdering Facility: [facility] Address: [address] [place] [address] Performed By: #### 5 7021-8 ####[facility] LABORATORYCLIA [id number] [address] [place] Platelets (Bld) [#/Vol] 319 10*3/uL Normal 150-400 [facility] Comment on above: Order Comment: Speci men Type: BLOOD SPECIMENOrdering Facility: [facility] Address: [address] [place] [address] Performed By: #### 5 7021-8 ####[facility] LABORATORYCLIA [id number] [address] [place] RBC (Bld) [#/Vol] 3.21 10*6/uL Low 4.20-6.00 [facility] Comment on above: Order Comment: Speci men Type: BLOOD SPECIMENOrdering Facility: [facility] Address: [address] [place] [address] Performed By: #### 5 7021-8 ####[facility]ORATORYCLIA [id number] [address] [place] WBC (Bld) [#/Vol] 7.67 10*3/uL Normal 3.70-11.00 [facility] Comment on above: Order Comment: Speci men Type: BLOOD SPECIMENOrdering Facility: [facility] Address: [address] [place] [address] Performed By: #### 5 7021-8 ####[facility] LABORATORYCLIA [id number] [address] [place] Basophils (Bld) [#/Vol] 0.04 10*3/uL Normal <0.11 [facility] Comment on above: Order Comment: Speci men Type: BLOOD SPECIMENOrdering Facility: [facility] Address: [address] [place] [address] Performed By: #### 5 7021-8 ####[facility] LABORATORYCLIA [id number] [address] [place] Basophils/100 WBC (Bld) 0.5 % Normal [facility] Comment on above: Order Comment: Speci men Type: BLOOD SPECIMENOrdering Facility: [facility] Address: [address] [place] [address] Performed By: #### 5 7021-8 ####[facility] LABORATORYCLIA [id number] [address] [place] Differential cell count method Nom (Bld) Auto Normal [facility] Comment on above: Order Comment: Speci men Type: BLOOD SPECIMENOrdering Facility: [facility] Address: [address] [place] [address] Performed By: #### 5 7021-8 ####[facility] LABORATORYCLIA [id number] [place] [address] [place] Eosinophils (Bld) [#/Vol] 0.19 10*3/uL Normal <0.46 [facility] Comment on above: Order Comment: Speci men Type: BLOOD SPECIMENOrdering Facility: [facility] Address: [address] [place] [address] Performed By: #### 5 7021-8 ####[facility] LABORATORYCLIA [id number] [address] Eosinophils/100 WBC (Bld) 2.5 % Normal [facility] Comment on above: Order Comment: Speci men Type: BLOOD SPECIMENOrdering Facility: [facility] Address: [address] [place] [address] Performed By: #### 5 7021-8 ####[facility] LABORATORYCLIA [id number] [address] [place] Erythrocyte distribution width (RBC) [Ratio] 17.2 % High 11.5-15.0 [facility] Comment on above: Order Comment: Speci men Type: BLOOD SPECIMENOrdering Facility: [facility] Address: [address] [place] [address] Performed By: #### 5 7021-8 ####[facility] LABORATORYCLIA [id number] [address] [place] Hematocrit (Bld) [Volume fraction] 29.5 % Low 39.0-51.0 [facility] Comment on above: Order Comment: Speci men Type: BLOOD SPECIMENOrdering Facility: [facility] Address: [address] [place] [address] Performed By: #### 5 7021-8 ####[facility] LABORATORYCLIA [id number] [address] [place] Hemoglobin (Bld) [Mass/Vol] 9.2 g/dL Low 13.0-17.0 [facility] Comment on above: Order Comment: Speci men Type: BLOOD SPECIMENOrdering Facility: [facility] Address: [address] [place] [address] Performed By: #### 5 7021-8 ####[facility] LABORATORYCLIA [id number] [address] IMMATURE GRAN % 0.4 % Normal [facility] Comment on above: Order Comment: Speci men Type: BLOOD SPECIMENOrdering Facility: [facility] Address: [address] [place] [address] Performed By: #### 5 7021-8 ####[facility] LABORATORYCLIA [id number] [address] IMMATURE GRAN ABS 0.03 k/uL Normal <0.10 [facility] Comment on above: Order Comment: Speci men Type: BLOOD SPECIMENOrdering Facility: [facility] Address: [address] [place] [address] Performed By: #### 5 7021-8 ####[facility] LABORATORYCLIA [id number] [address] [place] Lymphocytes (Bld) [#/Vol] 1.50 10*3/uL Normal 1.00-4.00 [facility] Comment on above: Order Comment: Speci men Type: BLOOD SPECIMENOrdering Facility: [facility] Address: [address] [place] [address] Performed By: #### 5 7021-8 ####[facility] LABORATORYCLIA [id number] [address] Lymphocytes/100 WBC (Bld) 19.7 % Normal [facility] Comment on above: Order Comment: Speci men Type: BLOOD SPECIMENOrdering Facility: [facility] Address: [address] [place] [address] Performed By: #### 5 7021-8 ####[facility] LABORATORYCLIA [id number] [address] [place] MCH (RBC) [Entitic mass] 28.3 pg Normal 26.0-34.0 [facility] Comment on above: Order Comment: Speci men Type: BLOOD SPECIMENOrdering Facility: [facility] Address: [address] [place] [address] Performed By: #### 5 7021-8 ####[facility] LABORATORYCLIA [id number] [address] STATES [facility] MCHC (RBC) [Mass/Vol] 31.2 g/dL Normal 30.5-36.0 [facility] Comment on above: Order Comment: Speci men Type: BLOOD SPECIMENOrdering Facility: [facility] Address: [address] [place] [address] Performed By: #### 5 7021-8 ####[facility] LABORATORYCLIA [id number] [address] MCV (RBC) [Entitic vol] 90.8 fL Normal 80.0-100.0 [facility] Comment on above: Order Comment: Speci men Type: BLOOD SPECIMENOrdering Facility: [facility] Address: [address] [place] [address] Performed By: #### 5 7021-8 ####[facility] LABORATORYCLIA [id number] [address] STATES OF [facility] Monocytes (Bld) [#/Vol] 0.49 10*3/uL Normal <0.87 [facility] Comment on above: Order Comment: Speci men Type: BLOOD SPECIMENOrdering Facility: [facility] Address: [address] [place] [address] Performed By: #### 5 7021-8 ####[facility] LABORATORYCLIA [id number] [address] Monocytes/100 WBC (Bld) 6.4 % Normal [facility] Comment on above: Order Comment: Speci men Type: BLOOD SPECIMENOrdering Facility: [facility] Address: [address] [place] [address] Performed By: #### 5 7021-8 ####[facility] LABORATORYCLIA [id number] [address] [place] Neutrophils (Bld) [#/Vol] 5.38 10*3/uL Normal 1.45-7.50 [facility] Comment on above: Order Comment: Speci men Type: BLOOD SPECIMENOrdering Facility: [facility] Address: [address] [address] Performed By: #### 5 7021-8 ####[facility] LABORATORYCLIA [id number] [address] Neutrophils/100 WBC (Bld) 70.5 % Normal [facility] Comment on above: Order Comment: Speci men Type: BLOOD SPECIMENOrdering Facility: [facility] Address: [address] [place] [address] Performed By: #### 5 7021-8 ####[facility] LABORATORYCLIA [id number] [address] Nucleated RBC (Bld) [#/Vol] 10*3/uL Normal <0.01 [facility] Comment on above: Order Comment: Speci men Type: BLOOD SPECIMENOrdering Facility: [facility] Address: [address] [place] [address] Performed By: #### 5 7021-8 ####[facility] LABORATORYCLIA [id number] [address] Nucleated RBC/100 WBC (Bld) [Ratio] 0.0 /100 WBC Normal [facility] Comment on above: Order Comment: Speci men Type: BLOOD SPECIMENOrdering Facility: [facility] Address: [address] [place] [address] Performed By: #### 5 7021-8 ####[facility] LABORATORYCLIA [id number] [address] Platelet mean volume (Bld) [Entitic vol] 9.0 fL Normal 9.0-12.7 [facility] Comment on above: Order Comment: Speci men Type: BLOOD SPECIMENOrdering Facility: [facility] Address: [address] [place] [address] Performed By: #### 5 7021-8 ####[facility] LABORATORYCLIA [id number] [address] Platelets (Bld) [#/Vol] 316 10*3/uL Normal 150-400 [facility] Comment on above: Order Comment: Speci men Type: BLOOD SPECIMENOrdering Facility: [facility] Address: [address] [place] [address] Performed By: #### 5 7021-8 ####[facility]ORATORYCLIA [id number] [place] [address] [place] RBC (Bld) [#/Vol] 3.25 10*6/uL Low 4.20-6.00 [facility] Comment on above: Order Comment: Speci men Type: BLOOD SPECIMENOrdering Facility: [facility] Address: [address] [place] [address] Performed By: #### 5 7021-8 ####[facility] LABORATORYCLIA [id number] [address] OF [facility] WBC (Bld) [#/Vol] 7.63 10*3/uL Normal 3.70-11.00 [facility] Comment on above: Order Comment: Speci men Type: BLOOD SPECIMENOrdering Facility: [facility] Address: [address] [place] [address] Performed By: #### 5 7021-8 ####[facility] LABORATORYCLIA [id number] [address] [place] Basophils (Bld) [#/Vol] Normal <0.11 [facility] Comment on above: Order Comment: Speci men Type: BLOOD SPECIMENOrdering Facility: [facility] Address: [address] [place] [address] Result Comment: Carolina Owens RN informed lab after results autoverified that she rd on the wrong patient. Lab to credit. Nurse to redraw on correct patient.Corrected result: Previously reported as 0.04 k/uL on 08/16/2021 at 4:44 AM EDT. Performed By: #### 5 7021-8 ####[facility]ORATORYCLIA [id number] [address] Basophils/100 WBC (Bld) Normal [facility] Comment on above: Order Comment: Speci men Type: BLOOD SPECIMENOrdering Facility: [facility] Address: [address] [place] [address] Result Comment: Tati ected result: Previously reported as 0.4 % on 08/16/2021 at 4:44 AM EDT. Performed By: #### 5 7021-8 ####[facility]ORATORYCLIA [id number] [address] CBC W Differential panel, method unspecified (Bld) Normal [facility] Comment on above: Order Comment: Speci men Type: BLOOD SPECIMENOrdering Facility: [facility] Address: [address] [place] [address] Result Comment: Carolina Owens RN informed lab after results autoverified that she rd on the wrong patient. Lab to credit. Nurse to redraw on correct patient. Performed By: #### 5 7021-8 ####[facility]ORATORYCLIA [id number] [address] Differential cell count method Nom (Bld) Normal [facility] Comment on above: Order Comment: Speci men Type: BLOOD SPECIMENOrdering Facility: [facility] Address: [address] [place] [address] Result Comment: Carolina Owens RN informed lab after results autoverified that she rd on the wrong patient. Lab to credit. Nurse to redraw on correct patient.Corrected result: Previously reported as Auto on 08/16/2021 at 4:44 AM EDT. Performed By: #### 5 7021-8 ####[facility] LABORATORYCLIA [id number] [address] [place] Eosinophils (Bld) [#/Vol] Normal <0.46 [facility] Comment on above: Order Comment: Speci men Type: BLOOD SPECIMENOrdering Facility: [facility] Address: [address] [place] [address] Result Comment: Carolina Owens RN informed lab after results autoverified that she rd on the wrong patient. Lab to credit. Nurse to redraw on correct patient.Corrected result: Previously reported as 0.07 k/uL on 08/16/2021 at 4:44 AM EDT. Performed By: #### 5 7021-8 ####[facility]ORATORYCLIA [id number] [address] [place] Eosinophils/100 WBC (Bld) Normal [facility] Comment on above: Order Comment: Speci men Type: BLOOD SPECIMENOrdering Facility: [facility] Address: [address] [place] [address] Result Comment: Carolina Owens RN informed lab after results autoverified that she rd on the wrong patient. Lab to credit. Nurse to redraw on correct patient.Corrected result: Previously reported as 0.7 % on 08/16/2021 at 4:44 AM EDT. Performed By: #### 5 7021-8 ####[facility]ORATORYCLIA [id number] [address] Erythrocyte distribution width (RBC) [Ratio] Normal 11.5-15.0 [facility] Comment on above: Order Comment: Speci men Type: BLOOD SPECIMENOrdering Facility: [facility] Address: [address] [place] [address] Result Comment: Carolina Owens RN informed lab after results autoverified that she rd on the wrong patient. Lab to credit. Nurse to redraw on correct patient.Corrected result: Previously reported as 14.2 % on 08/16/2021 at 4:44 AM EDT. Performed By: #### 5 7021-8 ####[facility] LABORATORYCLIA [id number] [address] OF [facility] Hematocrit (Bld) [Volume fraction] Normal 39.0-51.0 [facility] Comment on above: Order Comment: Speci francia Type: BLOOD SPECIMENOrdering Facility: [facility] Address: [address] [place] [address] Result Comment: Carolina Owens RN informed lab after results autoverified that she rd on the wrong patient. Lab to credit. Nurse to redraw on correct patient.Corrected result: Previously reported as 34.3 % on 08/16/2021 at 4:44 AM EDT. Performed By: #### 5 7021-8 ####[facility] LABORATORYCLIA [id number] [address] Hemoglobin (Bld) [Mass/Vol] Normal 13.0-17.0 [facility] Comment on above: Order Comment: Speci men Type: BLOOD SPECIMENOrdering Facility: [facility] Address: [address] [place] [address] Result Comment: Carolina Owens RN informed lab after results autoverified that she rd on the wrong patient. Lab to credit. Nurse to redraw on correct patient.Corrected result: Previously reported as 11.2 g/dL on 08/16/2021 at 4:44 AM EDT. Performed By: #### 5 7021-8 ####[facility] LABORATORYCLIA [id number] [address] IMMATURE GRAN % Normal [facility] Comment on above: Order Comment: Speci men Type: BLOOD SPECIMENOrdering Facility: [facility] Address: [address] [place] [address] Result Comment: Caroilna Owens RN informed lab after results autoverified that she rd on the wrong patient. Lab to credit. Nurse to redraw on correct patient.Corrected result: Previously reported as 0.8 % on 08/16/2021 at 4:44 AM EDT. Performed By: #### 5 7021-8 ####[facility]ORATORYCLIA [id number] [address] IMMATURE GRAN ABS Normal <0.10 [facility] Comment on above: Order Comment: Speci men Type: BLOOD SPECIMENOrdering Facility: [facility] Address: [address] [place] [address] Result Comment: Tati ected result: Previously reported as 0.08 k/uL on 08/16/2021 at 4:44 AM EDT. Performed By: #### 5 7021-8 ####[facility] LABORATORYCLIA [id number] [address] STATES [place] [facility] Lymphocytes (Bld) [#/Vol] Normal 1.00-4.00 [facility] Comment on above: Order Comment: Speci men Type: BLOOD SPECIMENOrdering Facility: [facility] Address: [address] [place] [address] Result Comment: Carolina Owens RN informed lab after results autoverified that she rd on the wrong patient. Lab to credit. Nurse to redraw on correct patient.Corrected result: Previously reported as 1.17 k/uL on 08/16/2021 at 4:44 AM EDT. Performed By: #### 5 7021-8 ####[facility] LABORATORYCLIA [id number] [address] Lymphocytes/100 WBC (Bld) Normal [facility] Comment on above: Order Comment: Speci men Type: BLOOD SPECIMENOrdering Facility: [facility] Address: [address] [place] [address] Result Comment: Carolina Owens RN informed lab after results autoverified that she rd on the wrong patient. Lab to credit. Nurse to redraw on correct patient.Corrected result: Previously reported as 12.0 % on 08/16/2021 at 4:44 AM EDT. Performed By: #### 5 7021-8 ####[facility] LABORATORYCLIA [id number] [address] [place] MCHC (RBC) [Mass/Vol] Normal 30.5-36.0 [facility] Comment on above: Order Comment: Speci men Type: BLOOD SPECIMENOrdering Facility: [facility] Address: [address] [place] [address] Result Comment: Carolina Owens RN informed lab after results autoverified that she rd on the wrong patient. Lab to credit. Nurse to redraw on correct patient.Corrected result: Previously reported as 32.7 g/dL on 08/16/2021 at 4:44 AM EDT. Performed By: #### 5 7021-8 ####[facility] LABORATORYCLIA [id number] [address] STATES [facility] MCV (RBC) [Entitic vol] Normal 80.0-100.0 [facility] Comment on above: Order Comment: Speci men Type: BLOOD SPECIMENOrdering Facility: [facility] Address: [address] [place] [address] Result Comment: Carolina Owens RN informed lab after results autoverified that she rd on the wrong patient. Lab to credit. Nurse to redraw on correct patient.Corrected result: Previously reported as 94.2 fL on 08/16/2021 at 4:44 AM EDT. Performed By: #### 5 7021-8 ####[facility] LABORATORYCLIA [id number] [address] Monocytes (Bld) [#/Vol] Normal <0.87 [facility] Comment on above: Order Comment: Speci men Type: BLOOD SPECIMENOrdering Facility: [facility] Address: [address] [place] [address] Result Comment: Carolina Owens RN informed lab after results autoverified that she rd on the wrong patient. Lab to credit. Nurse to redraw on correct patient.Corrected result: Previously reported as 0.99 k/uL on 08/16/2021 at 4:44 AM EDT. Performed By: #### 5 7021-8 ####[facility] LABORATORYCLIA [id number] [address] [place] Monocytes/100 WBC (Bld) Normal [facility] Comment on above: Order Comment: Speci men Type: BLOOD SPECIMENOrdering Facility: [facility] Address: [address] [place] [address] Result Comment: Carolina Owens RN informed lab after results autoverified that she rd on the wrong patient. Lab to credit. Nurse to redraw on correct patient.Corrected result: Previously reported as 10.2 % on 08/16/2021 at 4:44 AM EDT. Performed By: #### 5 7021-8 ####[facility] LABORATORYCLIA [id number] [place] [address] [place] Neutrophils (Bld) [#/Vol] Normal 1.45-7.50 [facility] Comment on above: Order Comment: Speci men Type: BLOOD SPECIMENOrdering Facility: [facility] Address: [address] [place] [address] Result Comment: Carolina Owens RN informed lab after results autoverified that she rd on the wrong patient. Lab to credit. Nurse to redraw on correct patient.Corrected result: Previously reported as 7.40 k/uL on 08/16/2021 at 4:44 AM EDT. Performed By: #### 5 7021-8 ####[facility] LABORATORYCLIA [id number] [address] [place] Neutrophils/100 WBC (Bld) Normal [facility] Comment on above: Order Comment: Speci [facility] Type: BLOOD SPECIMENOrdering Facility: [facility] Address: [address] [place] [address] Result Comment: Carolina Owens RN informed lab after results autoverified that she rd on the wrong patient. Lab to credit. Nurse to redraw on correct patient.Corrected result: Previously reported as 75.9 % on 08/16/2021 at 4:44 AM EDT. Performed By: #### 5 7021-8 ####[facility] LABORATORYCLIA [id number] [place] [address] [place] Platelet mean volume (Bld) [Entitic vol] Normal 9.0-12.7 [facility] Comment on above: Order Comment: Speci [facility] Type: BLOOD SPECIMENOrdering Facility: [facility] Address: [address] [place] [address] Result Comment: Carolina Owens RN informed lab after results autoverified that she rd on the wrong patient. Lab to credit. Nurse to redraw on correct patient.Corrected result: Previously reported as 9.1 fL on 08/16/2021 at 4:44 AM EDT. Performed By: #### 5 7021-8 ####[facility] LABORATORYCLIA [id number] [place] [address] [place] Platelets (Bld) [#/Vol] Normal 150-400 [facility] Comment on above: Order Comment: Speci men Type: BLOOD SPECIMENOrdering Facility: [facility] Address: [address] [place] [address] Result Comment: Carolina Owens RN informed lab after results autoverified that she rd on the wrong patient. Lab to credit. Nurse to redraw on correct patient.Corrected result: Previously reported as 338 k/uL on 08/16/2021 at 4:44 AM EDT. Performed By: #### 5 7021-8 ####[facility] LABORATORYCLIA [id number] [address] [place] RBC (Bld) [#/Vol] Normal 4.20-6.00 [facility] Comment on above: Order Comment: Speci men Type: BLOOD SPECIMENOrdering Facility: [facility] Address: [address] [place] [address] Result Comment: Carolina Owens RN informed lab after results autoverified that she rd on the wrong patient. Lab to credit. Nurse to redraw on correct patient.Corrected result: Previously reported as 3.64 m/uL on 08/16/2021 at 4:44 AM EDT. Performed By: #### 5 7021-8 ####[facility] LABORATORYCLIA [id number] [address] [place] WBC (Bld) [#/Vol] Normal 3.70-11.00 [facility] Comment on above: Order Comment: Speci men Type: BLOOD SPECIMENOrdering Facility: [facility] Address: [address] [place] [address] Result Comment: Carolina Owens RN informed lab after results autoverified that she rd on the wrong patient. Lab to credit. Nurse to redraw on correct patient.Corrected result: Previously reported as 9.75 k/uL on 08/16/2021 at 4:44 AM EDT. Performed By: #### 5 7021-8 ####[facility]ORATORYCLIA [id number] [address] [place] CONSULT PROGon 08-16-2021 CONSULT PROG Normal [facility] Magnesium SerPl-mCncon 08-16 Magnesium [Mass/Vol] 1.8 mg/dL Normal 1.7-2.3 [facility] Comment on above: Order Comment: Speci men Type: BLOOD SPECIMENOrdering Facility: [facility] Address: [address] [place] [address] Performed By: #### 2 4321-2, 96825-9 ####[facility]ORATORYCLIA [id number] [address] OF [facility] NURSING PROGon 08-16-2021 NURSING PROG Normal [facility] Basic metabolic 2000 panelon 08-15-2021 Anion gap [Moles/Vol] 13 mmol/L Normal 9-18 [facility] Comment on above: Order Comment: Speci men Type: BLOOD SPECIMENOrdering Facility: [facility] Address: [address] [place] [address] Performed By: #### 2 4321-2 ####[facility] LABORATORYCLIA [id number] [address] [place] Calcium [Mass/Vol] 9.0 mg/dL Normal 8.5-10.2 [facility] Comment on above: Order Comment: Speci men Type: BLOOD SPECIMENOrdering Facility: [facility] Address: [address] [place] [address] Performed By: #### 2 4321-2 ####[facility] LABORATORYCLIA [id number] [address] [place] Chloride [Moles/Vol] 95 mmol/L Low 97-105 [facility] Comment on above: Order Comment: Speci men Type: BLOOD SPECIMENOrdering Facility: [facility] Address: [address] [place] [address] Performed By: #### 2 4321-2 ####[facility]ORATORYCLIA [id number] [address] [place] CO2 [Moles/Vol] 28 mmol/L Normal 22-30 [facility] Comment on above: Order Comment: Speci men Type: BLOOD SPECIMENOrdering Facility: [facility] Address: [address] [place] [address] Performed By: #### 2 4321-2 ####[facility] LABORATORYCLIA [id number] [address] [place] [facility] Creatinine [Mass/Vol] 0.50 mg/dL Low 0.73-1.22 [facility] Comment on above: Order Comment: Speci men Type: BLOOD SPECIMENOrdering Facility: [facility] Address: [address] [place] [address] Performed By: #### 2 4321-2 ####[facility] [id number] [address] ESTIMATED GLOMERULAR FILTRATION RATE 110 mL/min/1.73m??? Normal >=60 [facility] Comment on above: Order Comment: Speci men Type: BLOOD SPECIMENOrdering Facility: [facility] Address: [address] [place] [address] Result Comment: Luzmaria mated Glomerular Filtration Rate [...] actual GFR. Performed By: #### 2 4321-2 ####[facility]ORATORYCLIA [id number] [address] STATES OF [facility] Glucose [Mass/Vol] 106 mg/dL High 74-99 [facility] Comment on above: Order Comment: Speci men Type: BLOOD SPECIMENOrdering Facility: [facility] Address: [address] [place] [address] Result Comment: The [place] [employer] (ADA) provides guidance for cutoff [...] Standards of Medical Care in Diabetes 2016, [place] [employer]. Diabetes Care. 2016.39(Suppl 1). Performed By: #### 2 4321-2 ####[facility]ATORYCLIA [id number] [address] [place] [facility] Potassium [Moles/Vol] 3.3 mmol/L Low 3.7-5.1 [facility] Comment on above: Order Comment: Shira feldman Type: BLOOD SPECIMENOrdering Facility: [facility] Address: [address] [place] [address] Performed By: #### 2 4321-2 ####[facility]ATORYCLIA [id number] [address] [place] [facility] Sodium [Moles/Vol] 136 mmol/L Normal 136-144 [facility] Comment on above: Order Comment: Shira feldman Type: BLOOD SPECIMENOrdering Facility: [facility] Address: [address] [place] [address] Performed By: #### 2 4321-2 ####[facility]ATORYCLIA [id number] [address] [place] [facility] Urea nitrogen [Mass/Vol] 11 mg/dL Normal 9-24 [facility] Comment on above: Order Comment: Shira feldman Type: BLOOD SPECIMENOrdering Facility: [facility] Address: [facility] [address] Performed By: #### 2 4321-2 ####[facility]ATORYCLIA [id number] [address] OF [facility] CASE MANAGEMon 08-15-2021 CASE MANAGEM Normal [facility] CBC W Auto Differential pane l (Bld)on 08-15-2021 Basophils (Bld) [#/Vol] 0.03 10*3/uL Normal <0.11 [facility] Comment on above: Order Comment: Speci men Type: BLOOD SPECIMENOrdering Facility: [facility] Address: [address] [place] [address] Performed By: #### 5 7021-8 ####[facility]ORYCLIA [id number] [address] [place] Basophils/100 WBC (Bld) 0.4 % Normal [facility] Comment on above: Order Comment: Speci men Type: BLOOD SPECIMENOrdering Facility: [facility] Address: [address] [place] [address] Performed By: #### 5 7021-8 ####[facility]ATORYCLIA [id number] [address] [place] Differential cell count method Nom (Bld) Auto Normal [facility] Comment on above: Order Comment: Speci men Type: BLOOD SPECIMENOrdering Facility: [facility] Address: [address] [place] [address] Performed By: #### 5 7021-8 ####[facility]ORYCLIA [id number] [address] [place] Eosinophils (Bld) [#/Vol] 0.20 10*3/uL Normal <0.46 [facility] Comment on above: Order Comment: Speci men Type: BLOOD SPECIMENOrdering Facility: [facility] Address: [address] [place] [address] Performed By: #### 5 7021-8 ####[facility]ORYCLIA [id number] [address] Eosinophils/100 WBC (Bld) 2.5 % Normal [facility] Comment on above: Order Comment: Speci men Type: BLOOD SPECIMENOrdering Facility: [facility] Address: [address] [place], [place] [address] Performed By: #### 5 7021-8 ####[facility]ATORYCLIA [id number] [address] Erythrocyte distribution width (RBC) [Ratio] 16.7 % High 11.5-15.0 [facility] Comment on above: Order Comment: Speci men Type: BLOOD SPECIMENOrdering Facility: [facility] Address: [address] [place] [address] Performed By: #### 5 7021-8 ####[facility]ATORYCLIA [id number] [address] Hematocrit (Bld) [Volume fraction] 30.3 % Low 39.0-51.0 [facility] Comment on above: Order Comment: Speci men Type: BLOOD SPECIMENOrdering Facility: [facility] Address: [address] [place] [address] Performed By: #### 5 7021-8 ####[facility]ATORYCLIA [id number] [address] Hemoglobin (Bld) [Mass/Vol] 9.4 g/dL Low 13.0-17.0 [facility] Comment on above: Order Comment: Speci men Type: BLOOD SPECIMENOrdering Facility: [facility] Address: [address] [place] [address] Performed By: #### 5 7021-8 ####[facility]ATORYCLIA [id number] [address] IMMATURE GRAN % 0.4 % Normal [facility] Comment on above: Order Comment: Speci men Type: BLOOD SPECIMENOrdering Facility: [facility] Address: [address] [place] [address] Performed By: #### 5 7021-8 ####[facility]ATORYCLIA [id number] [address] IMMATURE GRAN ABS 0.03 k/uL Normal <0.10 [facility] Comment on above: Order Comment: Speci men Type: BLOOD SPECIMENOrdering Facility: [facility] Address: [address] [place] [address] Performed By: #### 5 7021-8 ####[facility]ATORYCLIA [id number] [address] Lymphocytes (Bld) [#/Vol] 1.50 10*3/uL Normal 1.00-4.00 [facility] Comment on above: Order Comment: Speci men Type: BLOOD SPECIMENOrdering Facility: [facility] Address: [address] [place] [address] Performed By: #### 5 7021-8 ####[facility]ATORYCLIA [id number] [address] Lymphocytes/100 WBC (Bld) 18.5 % Normal [facility] Comment on above: Order Comment: Speci men Type: BLOOD SPECIMENOrdering Facility: [facility] Address: [address] [place] [address] Performed By: #### 5 7021-8 ####[facility]ATORYCLIA [id number] [address] MCH (RBC) [Entitic mass] 29.0 pg Normal 26.0-34.0 [facility] Comment on above: Order Comment: Speci men Type: BLOOD SPECIMENOrdering Facility: [facility] Address: [address] [place] [address] Performed By: #### 5 7021-8 ####[facility]ATORYCLIA [id number] [address] [place] [facility] MCHC (RBC) [Mass/Vol] 31.0 g/dL Normal 30.5-36.0 [facility] Comment on above: Order Comment: Speci men Type: BLOOD SPECIMENOrdering Facility: [facility] Address: [address] [place] [address] Performed By: #### 5 7021-8 ####[facility]ORATORYCLIA [id number] [place] [address] [place] MCV (RBC) [Entitic vol] 93.5 fL Normal 80.0-100.0 [facility] Comment on above: Order Comment: Speci men Type: BLOOD SPECIMENOrdering Facility: [facility] Address: [address] [place] [address] Performed By: #### 5 7021-8 ####[facility]ATORYCLIA [id number] [place] [address] [place] Monocytes (Bld) [#/Vol] 0.47 10*3/uL Normal <0.87 [facility] Comment on above: Order Comment: Speci men Type: BLOOD SPECIMENOrdering Facility: [facility] Address: [address] [place] [address] Performed By: #### 5 7021-8 ####[facility]ATORYCLIA [id number] [address] [place] [facility] Monocytes/100 WBC (Bld) 5.8 % Normal [facility] Comment on above: Order Comment: Speci men Type: BLOOD SPECIMENOrdering Facility: [facility] Address: [address] [place] [address] Performed By: #### 5 7021-8 ####[facility]ATORYCLIA [id number] [address] [place] Neutrophils (Bld) [#/Vol] 5.87 10*3/uL Normal 1.45-7.50 [facility] Comment on above: Order Comment: Speci men Type: BLOOD SPECIMENOrdering Facility: [facility] Address: [address] [place] [address] Performed By: #### 5 7021-8 ####[facility]ATORYCLIA [id number] [address] [place] Neutrophils/100 WBC (Bld) 72.4 % Normal [facility] Comment on above: Order Comment: Speci men Type: BLOOD SPECIMENOrdering Facility: [facility] Address: [address] [place] [address] Performed By: #### 5 7021-8 ####[facility]ATORYCLIA [id number] [address] [place] Nucleated RBC (Bld) [#/Vol] 10*3/uL Normal <0.01 [facility] Comment on above: Order Comment: Speci men Type: BLOOD SPECIMENOrdering Facility: [facility] Address: [address] [place] [address] Performed By: #### 5 7021-8 ####[facility]ATORYCLIA [id number] [address] [place] Nucleated RBC/100 WBC (Bld) [Ratio] 0.0 /100 WBC Normal [facility] Comment on above: Order Comment: Speci men Type: BLOOD SPECIMENOrdering Facility: [facility] Address: [address] [place] [address] Performed By: #### 5 7021-8 ####[facility]ATORYCLIA [id number] [address] Platelet mean volume (Bld) [Entitic vol] 9.4 fL Normal 9.0-12.7 [facility] Comment on above: Order Comment: Speci men Type: BLOOD SPECIMENOrdering Facility: [facility] Address: [address] [place] [address] Performed By: #### 5 7021-8 ####[facility]ORATORYCLIA [id number] [address] [place] Platelets (Bld) [#/Vol] 290 10*3/uL Normal 150-400 [facility] Comment on above: Order Comment: Speci men Type: BLOOD SPECIMENOrdering Facility: [facility] Address: [address] [place] [address] Performed By: #### 5 7021-8 ####[facility]ATORYCLIA [id number] [address] [place] RBC (Bld) [#/Vol] 3.24 10*6/uL Low 4.20-6.00 [facility] Comment on above: Order Comment: Speci men Type: BLOOD SPECIMENOrdering Facility: [facility] Address: [address] [place] [address] Performed By: #### 5 7021-8 ####[facility]ATORYCLIA [id number] [place] [address] [place] WBC (Bld) [#/Vol] 8.10 10*3/uL Normal 3.70-11.00 [facility] Comment on above: Order Comment: Speci men Type: BLOOD SPECIMENOrdering Facility: [facility] Address: [address] [place] [address] Performed By: #### 5 7021-8 ####[facility]ATORYCLIA [id number] [address] [place] THERAPY NTon 08-15-2021 THERAPY NT Normal [facility] THERAPY NT Normal [facility] THERAPY NT Normal [facility] Basic metabolic 2000 panelon 08-14-2021 Anion gap [Moles/Vol] 10 mmol/L Normal 9-18 [facility] Comment on above: Order Comment: Speci men Type: BLOOD SPECIMENOrdering Facility: [facility] Address: [address] [place] [address] Performed By: #### 2 4321-2 ####[facility]ATORYCLIA [id number] [address] [place] Calcium [Mass/Vol] 8.8 mg/dL Normal 8.5-10.2 [facility] Comment on above: Order Comment: Speci men Type: BLOOD SPECIMENOrdering Facility: [facility] Address: [address] [place] [address] Performed By: #### 2 4321-2 ####[facility]ATORYCLIA [id number] [place] [address] [place] Chloride [Moles/Vol] 92 mmol/L Low 97-105 [facility] Comment on above: Order Comment: Speci men Type: BLOOD SPECIMENOrdering Facility: [facility] Address: [address] [address] Performed By: #### 2 4321-2 ####[facility]ATORYCLIA [id number] [address] [place] CO2 [Moles/Vol] 29 mmol/L Normal 22-30 [facility] Comment on above: Order Comment: Speci men Type: BLOOD SPECIMENOrdering Facility: [facility] Address: [address] [place] [address] Performed By: #### 2 4321-2 ####[facility]ATORYCLIA [id number] [address] [place] Creatinine [Mass/Vol] 0.49 mg/dL Low 0.73-1.22 [facility] Comment on above: Order Comment: Speci men Type: BLOOD SPECIMENOrdering Facility: [facility] Address: [address] [place] [address] Performed By: #### 2 4321-2 ####[facility]IA [id number] [address] ESTIMATED GLOMERULAR FILTRATION RATE 111 mL/min/1.73m??? Normal >=60 [facility] Comment on above: Order Comment: Speci men Type: BLOOD SPECIMENOrdering Facility: [facility] Address: [address] [place] [address] Result Comment: Luzmaria mated Glomerular Filtration Rate [...] actual GFR. Performed By: #### 2 4321-2 ####[facility]ATORYCLIA [id number] [address] [place] Glucose [Mass/Vol] 104 mg/dL High 74-99 [facility] Comment on above: Order Comment: Speci men Type: BLOOD SPECIMENOrdering Facility: [facility] Address: [address] [place] [address] Result Comment: The [place] [employer] (ADA) provides guidance for cutoff [...] Standards of Medical Care in Diabetes 2016, [place] [employer]. Diabetes Care. 2016.39(Suppl 1). Performed By: #### 2 4321-2 ####[facility]ATORYCLIA [id number] [place] [address] [place] Potassium [Moles/Vol] 3.1 mmol/L Low 3.7-5.1 [facility] Comment on above: Order Comment: Speci men Type: BLOOD SPECIMENOrdering Facility: [facility] Address: [address] [place] [address] Performed By: #### 2 1-2 ####[facility]ATORYCLIA [id number] [address] [place] Sodium [Moles/Vol] 131 mmol/L Low 136-144 [facility] Comment on above: Order Comment: Speci men Type: BLOOD SPECIMENOrdering Facility: [facility] Address: [address] [address] Performed By: #### 2 1-2 ####[facility]ATORYCLIA [id number] [place] [address] [place] Urea nitrogen [Mass/Vol] 13 mg/dL Normal 9-24 [facility] Comment on above: Order Comment: Speci men Type: BLOOD SPECIMENOrdering Facility: [facility] Address: [address] [address] Performed By: #### 2 4321-2 ####[facility]ATORYCLIA [id number] [place] [address] [place] CBC W Auto Differential pane l (Bld)on 08-14-2021 Basophils (Bld) [#/Vol] 10*3/uL Normal <0.11 [facility] Comment on above: Order Comment: Speci men Type: BLOOD SPECIMENOrdering Facility: [facility] Address: [address] [place] [address] Performed By: #### 5 7021-8 ####[facility]ATORYCLIA [id number] [address] [place] Basophils/100 WBC (Bld) 0.2 % Normal [facility] Comment on above: Order Comment: Speci men Type: BLOOD SPECIMENOrdering Facility: [facility] Address: [address] [place] [address] Performed By: #### 5 7021-8 ####[facility]ATORYCLIA [id number] [address] Differential cell count method Nom (Bld) Auto Normal [facility] Comment on above: Order Comment: Speci men Type: BLOOD SPECIMENOrdering Facility: [facility] Address: [address] [place] [address] Performed By: #### 5 7021-8 ####[facility]ATORYCLIA [id number] [place] [address] [place] Eosinophils (Bld) [#/Vol] 0.23 10*3/uL Normal <0.46 [facility] Comment on above: Order Comment: Speci men Type: BLOOD SPECIMENOrdering Facility: [facility] Address: [address] [place] [address] Performed By: #### 5 7021-8 ####[facility]ATORYCLIA [id number] [address] Eosinophils/100 WBC (Bld) 2.7 % Normal [facility] Comment on above: Order Comment: Speci men Type: BLOOD SPECIMENOrdering Facility: [facility] Address: [address] [address] Performed By: #### 5 7021-8 ####[facility]ATORYCLIA [id number] [address] Erythrocyte distribution width (RBC) [Ratio] 16.6 % High 11.5-15.0 [facility] Comment on above: Order Comment: Speci men Type: BLOOD SPECIMENOrdering Facility: [facility] Address: [address] [place] [address] Performed By: #### 5 7021-8 ####[facility]ATORYCLIA [id number] [address] Hematocrit (Bld) [Volume fraction] 28.6 % Low 39.0-51.0 [facility] Comment on above: Order Comment: Speci men Type: BLOOD SPECIMENOrdering Facility: [facility] Address: [address] [place] [address] Performed By: #### 5 7021-8 ####[facility]ATORYCLIA [id number] [address] Hemoglobin (Bld) [Mass/Vol] 9.0 g/dL Low 13.0-17.0 [facility] Comment on above: Order Comment: Speci men Type: BLOOD SPECIMENOrdering Facility: [facility] Address: [address] [place] [address] Performed By: #### 5 7021-8 ####[facility]ATORYCLIA [id number] [address] IMMATURE GRAN % 0.2 % Normal [facility] Comment on above: Order Comment: Speci men Type: BLOOD SPECIMENOrdering Facility: [facility] Address: [address] [place] [address] Performed By: #### 5 7021-8 ####[facility]ATORYCLIA [id number] [address] IMMATURE GRAN ABS <0.03 Normal <0.10 [facility] Comment on above: Order Comment: Speci men Type: BLOOD SPECIMENOrdering Facility: [facility] Address: [address] [place] [address] Performed By: #### 5 7021-8 ####[facility]ATORYCLIA [id number] [address] Lymphocytes (Bld) [#/Vol] 1.33 10*3/uL Normal 1.00-4.00 [facility] Comment on above: Order Comment: Speci men Type: BLOOD SPECIMENOrdering Facility: [facility] Address: [address] [place] [address] Performed By: #### 5 7021-8 ####[facility]ATORYCLIA [id number] [address] Lymphocytes/100 WBC (Bld) 15.6 % Normal [facility] Comment on above: Order Comment: Speci men Type: BLOOD SPECIMENOrdering Facility: [facility] Address: [address] [place] [address] Performed By: #### 5 7021-8 ####[facility]ATORYCLIA [id number] [address] OF [facility] MCH (RBC) [Entitic mass] 29.0 pg Normal 26.0-34.0 [facility] Comment on above: Order Comment: Speci men Type: BLOOD SPECIMENOrdering Facility: [facility] Address: [address] [place] [address] Performed By: #### 5 7021-8 ####[facility]ATORYCLIA [id number] [address] [place] [facility] MCHC (RBC) [Mass/Vol] 31.5 g/dL Normal 30.5-36.0 [facility] Comment on above: Order Comment: Speci men Type: BLOOD SPECIMENOrdering Facility: [facility] Address: [address] [place] [address] Performed By: #### 5 7021-8 ####[facility]ORATORYCLIA [id number] [address] [place] MCV (RBC) [Entitic vol] 92.3 fL Normal 80.0-100.0 [facility] Comment on above: Order Comment: Speci men Type: BLOOD SPECIMENOrdering Facility: [facility] Address: [address] [place] [address] Performed By: #### 5 7021-8 ####[facility]ATORYCLIA [id number] [place] [address] [place] Monocytes (Bld) [#/Vol] 0.44 10*3/uL Normal <0.87 [facility] Comment on above: Order Comment: Speci men Type: BLOOD SPECIMENOrdering Facility: [facility] Address: [address] [place] [address] Performed By: #### 5 7021-8 ####[facility]ORATORYCLIA [id number] [address] [place] [facility] Monocytes/100 WBC (Bld) 5.2 % Normal [facility] Comment on above: Order Comment: Speci men Type: BLOOD SPECIMENOrdering Facility: [facility] Address: [address] [place] [address] Performed By: #### 5 7021-8 ####[facility]ORATORYCLIA [id number] [address] [place] Neutrophils (Bld) [#/Vol] 6.46 10*3/uL Normal 1.45-7.50 [facility] Comment on above: Order Comment: Speci men Type: BLOOD SPECIMENOrdering Facility: [facility] Address: [address] [place] [address] Performed By: #### 5 7021-8 ####[facility]ATORYCLIA [id number] [address] [place] Neutrophils/100 WBC (Bld) 76.1 % Normal [facility] Comment on above: Order Comment: Speci men Type: BLOOD SPECIMENOrdering Facility: [facility] Address: [address] [place] [address] Performed By: #### 5 7021-8 ####[facility]ATORYCLIA [id number] [address] [place] Nucleated RBC (Bld) [#/Vol] 10*3/uL Normal <0.01 [facility] Comment on above: Order Comment: Speci men Type: BLOOD SPECIMENOrdering Facility: [facility] Address: [address] [place] [address] Performed By: #### 5 7021-8 ####[facility]ORATORYCLIA [id number] [address] [place] Nucleated RBC/100 WBC (Bld) [Ratio] 0.0 /100 WBC Normal [facility] Comment on above: Order Comment: Speci men Type: BLOOD SPECIMENOrdering Facility: [facility] Address: [address] [place] [address] Performed By: #### 5 7021-8 ####[facility]ORATORYCLIA [id number] [address] [place] Platelet mean volume (Bld) [Entitic vol] 9.5 fL Normal 9.0-12.7 [facility] Comment on above: Order Comment: Speci men Type: BLOOD SPECIMENOrdering Facility: [facility] Address: [address] [place] [address] Performed By: #### 5 7021-8 ####[facility]ATORYCLIA [id number] [address] [place] Platelets (Bld) [#/Vol] 247 10*3/uL Normal 150-400 [facility] Comment on above: Order Comment: Speci men Type: BLOOD SPECIMENOrdering Facility: [facility] Address: [address] [place] [address] Performed By: #### 5 7021-8 ####[facility] LABORATORYCLIA [id number] [place] RBC (Bld) [#/Vol] 3.10 10*6/uL Low 4.20-6.00 [facility] [facility] Comment on above: Order Comment: Speci men Type: BLOOD SPECIMENOrdering Facility: [facility] Address: [address] [place] [address] Performed By: #### 5 7021-8 ####[facility] LABORATORYCLIA [id number] [place] [address] [place] WBC (Bld) [#/Vol] 8.50 10*3/uL Normal 3.70-11.00 [facility] Comment on above: Order Comment: Speci men Type: BLOOD SPECIMENOrdering Facility: [facility] Address: [address] [place] [address] Performed By: #### 5 7021-8 ####[facility] LABORATORYCLIA [id number] [place] [address] [place] CONSULTon 08-14-2021 CONSULT Normal [facility] NURSING PROGon 08-14-2021 NURSING PROG Normal [facility] CBC W Auto Differential pane l (Bld)on 08-13-2021 Basophils (Bld) [#/Vol] 10*3/uL Normal <0.11 [facility] Comment on above: Order Comment: Speci men Type: BLOOD SPECIMENOrdering Facility: [facility] Address: [address] [place] [address] Performed By: #### 5 7021-8 ####[facility] LABORATORYCLIA [id number] [address] [place] Basophils/100 WBC (Bld) 0.2 % Normal [facility] Comment on above: Order Comment: Speci men Type: BLOOD SPECIMENOrdering Facility: [facility] Address: [address] [place] [address] Performed By: #### 5 7021-8 ####[facility] LABORATORYCLIA [id number] [place] [address] [place] Differential cell count method Nom (Bld) Auto Normal [facility] Comment on above: Order Comment: Speci men Type: BLOOD SPECIMENOrdering Facility: [facility] Address: [address] [address] Performed By: #### 5 7021-8 ####[facility] LABORATORYCLIA [id number] [address] [place] Eosinophils (Bld) [#/Vol] 0.31 10*3/uL Normal <0.46 [facility] Comment on above: Order Comment: Speci men Type: BLOOD SPECIMENOrdering Facility: [facility] Address: [address] [address] Performed By: #### 5 7021-8 ####[facility] LABORATORYCLIA [id number] [address] Eosinophils/100 WBC (Bld) 3.7 % Normal [facility] Comment on above: Order Comment: Speci men Type: BLOOD SPECIMENOrdering Facility: [facility] Address: [address] [place] [address] Performed By: #### 5 7021-8 ####[facility] LABORATORYCLIA [id number] [address] Erythrocyte distribution width (RBC) [Ratio] 16.6 % High 11.5-15.0 [facility] Comment on above: Order Comment: Speci men Type: BLOOD SPECIMENOrdering Facility: [facility] Address: [address] [place] [address] Performed By: #### 5 7021-8 ####[facility] LABORATORYCLIA [id number] [address] [place] Hematocrit (Bld) [Volume fraction] 27.5 % Low 39.0-51.0 [facility] Comment on above: Order Comment: Speci men Type: BLOOD SPECIMENOrdering Facility: [facility] Address: [facility] [address] Performed By: #### 5 7021-8 ####[facility]ORATORYCLIA [id number] [address] [place] Hemoglobin (Bld) [Mass/Vol] 8.4 g/dL Low 13.0-17.0 [facility] Comment on above: Order Comment: Speci men Type: BLOOD SPECIMENOrdering Facility: [facility] Address: [address] [place] [address] Performed By: #### 5 7021-8 ####[facility]ATORYCLIA [id number] [address] IMMATURE GRAN % 0.5 % Normal [facility] Comment on above: Order Comment: Speci men Type: BLOOD SPECIMENOrdering Facility: [facility] Address: [address] [place] [address] Performed By: #### 5 7021-8 ####[facility]ORATORYCLIA [id number] [address] IMMATURE GRAN ABS 0.04 k/uL Normal <0.10 [facility] Comment on above: Order Comment: Speci men Type: BLOOD SPECIMENOrdering Facility: [facility] Address: [address] [place] [address] Performed By: #### 5 7021-8 ####[facility]ORATORYCLIA [id number] [address] Lymphocytes (Bld) [#/Vol] 1.55 10*3/uL Normal 1.00-4.00 [facility] Comment on above: Order Comment: Speci men Type: BLOOD SPECIMENOrdering Facility: [facility] Address: [address] [place] [address] Performed By: #### 5 7021-8 ####[facility]ORATORYCLIA [id number] [address] Lymphocytes/100 WBC (Bld) 18.7 % Normal [facility] Comment on above: Order Comment: Speci men Type: BLOOD SPECIMENOrdering Facility: [facility] Address: [address] [place] [address] Performed By: #### 5 7021-8 ####[facility]ORATORYCLIA [id number] [address] [place] MCH (RBC) [Entitic mass] 28.9 pg Normal 26.0-34.0 [facility] Comment on above: Order Comment: Speci men Type: BLOOD SPECIMENOrdering Facility: [facility] Address: [address] [place] [address] Performed By: #### 5 7021-8 ####[facility]ORATORYCLIA [id number] [address] OF [facility] MCHC (RBC) [Mass/Vol] 30.5 g/dL Normal 30.5-36.0 [facility] Comment on above: Order Comment: Speci men Type: BLOOD SPECIMENOrdering Facility: [facility] Address: [address] [place] [address] Performed By: #### 5 7021-8 ####[facility]ORATORYCLIA [id number] [address] MCV (RBC) [Entitic vol] 94.5 fL Normal 80.0-100.0 [facility] Comment on above: Order Comment: Speci men Type: BLOOD SPECIMENOrdering Facility: [facility] Address: [address] [place] [address] Performed By: #### 5 7021-8 ####[facility]ORATORYCLIA [id number] [address] Monocytes (Bld) [#/Vol] 0.47 10*3/uL Normal <0.87 [facility] Comment on above: Order Comment: Speci men Type: BLOOD SPECIMENOrdering Facility: [facility] Address: [address] [place] [address] Performed By: #### 5 7021-8 ####[facility]ORATORYCLIA [id number] [address] Monocytes/100 WBC (Bld) 5.7 % Normal [facility] Comment on above: Order Comment: Speci men Type: BLOOD SPECIMENOrdering Facility: [facility] Address: [address] [place] [address] Performed By: #### 5 7021-8 ####[facility]ORATORYCLIA [id number] [address] [place] Neutrophils (Bld) [#/Vol] 5.92 10*3/uL Normal 1.45-7.50 [facility] Comment on above: Order Comment: Speci men Type: BLOOD SPECIMENOrdering Facility: [facility] Address: [address] [place] [address] Performed By: #### 5 7021-8 ####[facility]ORATORYCLIA [id number] [address] [place] Neutrophils/100 WBC (Bld) 71.2 % Normal [facility] Comment on above: Order Comment: Speci men Type: BLOOD SPECIMENOrdering Facility: [facility] Address: [address] [place] [address] Performed By: #### 5 7021-8 ####[facility]ORATORYCLIA [id number] [address] Nucleated RBC (Bld) [#/Vol] 10*3/uL Normal <0.01 [facility] Comment on above: Order Comment: Speci men Type: BLOOD SPECIMENOrdering Facility: [facility] Address: [address] [place] [address] Performed By: #### 5 7021-8 ####[facility]ORATORYCLIA [id number] [address] Nucleated RBC/100 WBC (Bld) [Ratio] 0.0 /100 WBC Normal [facility] Comment on above: Order Comment: Speci men Type: BLOOD SPECIMENOrdering Facility: [facility] Address: [address] [place] [address] Performed By: #### 5 7021-8 ####[facility]ORATORYCLIA [id number] [address] [place] Platelet mean volume (Bld) [Entitic vol] 9.9 fL Normal 9.0-12.7 [facility] Comment on above: Order Comment: Speci men Type: BLOOD SPECIMENOrdering Facility: [facility] Address: [address] [place] [address] Performed By: #### 5 7021-8 ####[facility]ORATORYCLIA [id number] [address] Platelets (Bld) [#/Vol] 203 10*3/uL Normal 150-400 [facility] Comment on above: Order Comment: Speci men Type: BLOOD SPECIMENOrdering Facility: [facility] Address: [address] [place] [address] Performed By: #### 5 7021-8 ####[facility]ORATORYCLIA [id number] [address] STATES OF [facility] RBC (Bld) [#/Vol] 2.91 10*6/uL Low 4.20-6.00 [facility] Comment on above: Order Comment: Speci men Type: BLOOD SPECIMENOrdering Facility: [facility] Address: [address] [place] [address] Performed By: #### 5 7021-8 ####[facility]ORATORYCLIA [id number] [address] WBC (Bld) [#/Vol] 8.31 10*3/uL Normal 3.70-11.00 [facility] Comment on above: Order Comment: Speci men Type: BLOOD SPECIMENOrdering Facility: [facility] Address: [address] [place] [address] Performed By: #### 5 7021-8 ####[facility]ORATORYCLIA [id number] [address] aPTT PPPon 08-13-2021 aPTT Coag (PPP) [Time] 69.7 s High 23.0-32.4 [facility] Comment on above: Order Comment: Speci men Type: BLOOD SPECIMENOrdering Facility: [facility] Address: [address] [place] [address] Performed By: #### 1 4979-9 ####[facility]ORATORYCLIA [id number] [place] [address] [place] aPTT Coag (PPP) [Time] 70.6 s High 23.0-32.4 [facility] Comment on above: Order Comment: Speci men Type: BLOOD SPECIMENOrdering Facility: [facility] Address: [address] [place] [address] Performed By: #### 1 4979-9 ####[facility]ORATORYCLIA [id number] [place] [address] [place] ALLIED HEALTHon 08-12-2021 ALLIED HEALTH Normal [facility] ALLIED HEALTH Normal [facility] Basic metabolic 2000 panelon 08-12-2021 Anion gap [Moles/Vol] 7 mmol/L Low 9-18 [facility] Comment on above: Order Comment: Speci men Type: BLOOD SPECIMENOrdering Facility: [facility] Address: [address] [place] [address] Performed By: #### 2 4321-2, , 2776-05 ####[facility]ORATORYCLIA [id number] [place] [address] [place] Calcium [Mass/Vol] 8.8 mg/dL Normal 8.5-10.2 [facility] Comment on above: Order Comment: Speci men Type: BLOOD SPECIMENOrdering Facility: [facility] Address: [address] [place] [address] Performed By: #### 2 4321-2, , 2776-05 ####[facility]ORATORYCLIA [id number] [place] [address] [place] Chloride [Moles/Vol] 96 mmol/L Low 97-105 [facility] Comment on above: Order Comment: Speci men Type: BLOOD SPECIMENOrdering Facility: [facility] Address: [address] [place] [address] Performed By: #### 2 4321-2, , 2776-05 ####[facility]ORATORYCLIA [id number] [place] [address] [place] CO2 [Moles/Vol] 32 mmol/L High 22-30 [facility] Comment on above: Order Comment: Speci francia Type: BLOOD SPECIMENOrdering Facility: [facility] Address: [address] [place] [address] Performed By: #### 2 4321-2, , 2776-05 ####[facility]REM[facility]CLIA [id number] [address] Creatinine [Mass/Vol] 0.52 mg/dL Low 0.73-1.22 [facility] Comment on above: Order Comment: Speci men Type: BLOOD SPECIMENOrdering Facility: [facility] Address: [address] [place] [address] Performed By: #### 2 4321-2, , 2776-05 ####[facility]GIA [id number] [address] ESTIMATED GLOMERULAR FILTRATION RATE 109 mL/min/1.73m??? Normal >=60 [facility] Comment on above: Order Comment: Speccara feldman Type: BLOOD SPECIMENOrdering Facility: [facility] Address: [address] [place] [address] Result Comment: Luzmaria mated Glomerular Filtration Rate [...] Performed By: #### 2 4321-2, , 2776-05 ####[facility]ORATORYCLIA [id number] [address] [place] Glucose [Mass/Vol] 119 mg/dL High 74-99 [facility] Comment on above: Order Comment: Johni men Type: BLOOD SPECIMENOrdering Facility: [facility] Address: [address] [place] [phone] Result Comment: The [place] [employer] (ADA) provides guidance for cutoff [...] Standards of Medical Care in Diabetes 2016, [place] [employer]. Diabetes Care. 2016.39(Suppl 1). Performed By: #### 2 4321-2, , 2776-05 ####[facility]ORATORYCLIA [id number] [place] [address] [place] Potassium [Moles/Vol] 3.7 mmol/L Normal 3.7-5.1 [facility] Comment on above: Order Comment: Speci men Type: BLOOD SPECIMENOrdering Facility: [facility] Address: [address] Performed By: #### 2 4321-2, , 2776-05 ####[facility]CLIA [id number] [place] [address] [place] Sodium [Moles/Vol] 135 mmol/L Low 136-144 [facility] Comment on above: Order Comment: Speci men Type: BLOOD SPECIMENOrdering Facility: [facility] Address: [address] [id number] Performed By: #### 2 4321-2, , 2776-05 ####[facility]ORATORYCLIA [id number] [place] [address] [place] Urea nitrogen [Mass/Vol] 20 mg/dL Normal 9-24 [facility] Comment on above: Order Comment: Speci men Type: BLOOD SPECIMENOrdering Facility: [facility] Address: [address] [id number] Performed By: #### 2 4321-2, 33328-1, 2777-1 ####[facility]ORATORYCLIA [id number] [address] [place] CASE MANAGEMon 08-12-2021 CASE MANAGEM Normal [facility] CBC W Auto Differential pane l (Bld)on 08-12-2021 Basophils (Bld) [#/Vol] 0.04 10*3/uL Normal <0.11 [facility] Comment on above: Order Comment: Speci men Type: BLOOD SPECIMENOrdering Facility: [facility] Address: [address] [place] [address] Performed By: #### 5 7021-8 ####[facility]ORATORYCLIA [id number] [address] [place] Basophils/100 WBC (Bld) 0.5 % Normal [facility] Comment on above: Order Comment: Speci men Type: BLOOD SPECIMENOrdering Facility: [facility] Address: [address] [address] Performed By: #### 5 7021-8 ####[facility]ORATORYCLIA [id number] [address] [place] Differential cell count method Nom (Bld) Auto Normal [facility] Comment on above: Order Comment: Speci men Type: BLOOD SPECIMENOrdering Facility: [facility] Address: [address] [address] Performed By: #### 5 7021-8 ####[facility]ORATORYCLIA [id number] [address] [place] Eosinophils (Bld) [#/Vol] 0.19 10*3/uL Normal <0.46 [facility] Comment on above: Order Comment: Speci men Type: BLOOD SPECIMENOrdering Facility: [facility] Address: [address] [address] Performed By: #### 5 7021-8 ####[facility]ORATORYCLIA [id number] [address] Eosinophils/100 WBC (Bld) 2.3 % Normal [facility] Comment on above: Order Comment: Speci men Type: BLOOD SPECIMENOrdering Facility: [facility] Address: [address] [place] [address] Performed By: #### 5 7021-8 ####[facility]ORATORYCLIA [id number] [address] Erythrocyte distribution width (RBC) [Ratio] 17.1 % High 11.5-15.0 [facility] Comment on above: Order Comment: Speci men Type: BLOOD SPECIMENOrdering Facility: [facility] Address: [address] [place] [address] Performed By: #### 5 7021-8 ####[facility]ORATORYCLIA [id number] [address] Hematocrit (Bld) [Volume fraction] 25.3 % Low 39.0-51.0 [facility] Comment on above: Order Comment: Speci men Type: BLOOD SPECIMENOrdering Facility: [facility] Address: [address] [place] [address] Performed By: #### 5 7021-8 ####[facility]ORATORYCLIA [id number] [address] [place] Hemoglobin (Bld) [Mass/Vol] 7.9 g/dL Low 13.0-17.0 [facility] Comment on above: Order Comment: Speci men Type: BLOOD SPECIMENOrdering Facility: [facility] Address: [address] [place] [address] Performed By: #### 5 7021-8 ####[facility]ORATORYCLIA [id number] [address] STATES [facility] IMMATURE GRAN % 0.5 % Normal [facility] Comment on above: Order Comment: Speci men Type: BLOOD SPECIMENOrdering Facility: [facility] Address: [address] [place] [address] Performed By: #### 5 7021-8 ####[facility]ORATORYCLIA [id number] [address] IMMATURE GRAN ABS 0.04 k/uL Normal <0.10 [facility] Comment on above: Order Comment: Speci men Type: BLOOD SPECIMENOrdering Facility: [facility] Address: [address] [place] [address] Performed By: #### 5 7021-8 ####[facility]ORATORYCLIA [id number] [address] Lymphocytes (Bld) [#/Vol] 1.69 10*3/uL Normal 1.00-4.00 [facility] Comment on above: Order Comment: Speci men Type: BLOOD SPECIMENOrdering Facility: [facility] Address: [address] [place] [address] Performed By: #### 5 7021-8 ####[facility]ORATORYCLIA [id number] [address] Lymphocytes/100 WBC (Bld) 20.1 % Normal [facility] Comment on above: Order Comment: Speci men Type: BLOOD SPECIMENOrdering Facility: [facility] Address: [address] [place] [address] Performed By: #### 5 7021-8 ####[facility]ORATORYCLIA [id number] [address] MCH (RBC) [Entitic mass] 28.5 pg Normal 26.0-34.0 [facility] Comment on above: Order Comment: Speci men Type: BLOOD SPECIMENOrdering Facility: [facility] Address: [address] [place] [address] Performed By: #### 5 7021-8 ####[facility]ORATORYCLIA [id number] [address] MCHC (RBC) [Mass/Vol] 31.2 g/dL Normal 30.5-36.0 [facility] Comment on above: Order Comment: Speci men Type: BLOOD SPECIMENOrdering Facility: [facility] Address: [address] [place] [address] Performed By: #### 5 7021-8 ####[facility]ORATORYCLIA [id number] [address] [place] MCV (RBC) [Entitic vol] 91.3 fL Normal 80.0-100.0 [facility] Comment on above: Order Comment: Speci men Type: BLOOD SPECIMENOrdering Facility: [facility] Address: [address] [place] [address] Performed By: #### 5 7021-8 ####[facility]ORATORYCLIA [id number] [address] [place] Monocytes (Bld) [#/Vol] 0.53 10*3/uL Normal <0.87 [facility] Comment on above: Order Comment: Speci men Type: BLOOD SPECIMENOrdering Facility: [facility] Address: [address] [place] [address] Performed By: #### 5 7021-8 ####[facility]ORATORYCLIA [id number] [address] [place] Monocytes/100 WBC (Bld) 6.3 % Normal [facility] Comment on above: Order Comment: Speci men Type: BLOOD SPECIMENOrdering Facility: [facility] Address: [address] [place] [address] Performed By: #### 5 7021-8 ####[facility]ORATORYCLIA [id number] [address] [place] Neutrophils (Bld) [#/Vol] 5.90 10*3/uL Normal 1.45-7.50 [facility] Comment on above: Order Comment: Speci men Type: BLOOD SPECIMENOrdering Facility: [facility] Address: [address] [place] [address] Performed By: #### 5 7021-8 ####[facility] LABORATORYCLIA [id number] [place] [address] [place] Neutrophils/100 WBC (Bld) 70.3 % Normal [facility] Comment on above: Order Comment: Speci men Type: BLOOD SPECIMENOrdering Facility: [facility] Address: [facility] [address] Performed By: #### 5 7021-8 ####[facility]ORATORYCLIA [id number] [address] [place] Nucleated RBC (Bld) [#/Vol] 10*3/uL Normal <0.01 [facility] Comment on above: Order Comment: Speci men Type: BLOOD SPECIMENOrdering Facility: [facility] Address: [address] [place] [address] Performed By: #### 5 7021-8 ####[facility]ORATORYCLIA [id number] [address] Nucleated RBC/100 WBC (Bld) [Ratio] 0.0 /100 WBC Normal [facility] Comment on above: Order Comment: Speci men Type: BLOOD SPECIMENOrdering Facility: [facility] Address: [address] [place] [address] Performed By: #### 5 7021-8 ####[facility]ORATORYCLIA [id number] [address] Platelet mean volume (Bld) [Entitic vol] 9.8 fL Normal 9.0-12.7 [facility] Comment on above: Order Comment: Speci men Type: BLOOD SPECIMENOrdering Facility: [facility] Address: [address] Performed By: #### 5 7021-8 ####[facility]ORATORYCLIA [id number] [address] [place] Platelets (Bld) [#/Vol] 164 10*3/uL Normal 150-400 [facility] Comment on above: Order Comment: Speci men Type: BLOOD SPECIMENOrdering Facility: [facility] Address: [address] Performed By: #### 5 7021-8 ####[facility]ORATORYCLIA [id number] [address] [place] RBC (Bld) [#/Vol] 2.77 10*6/uL Low 4.20-6.00 [facility] Comment on above: Order Comment: Speci men Type: BLOOD SPECIMENOrdering Facility: [facility] Address: [address] [place] [address] Performed By: #### 5 7021-8 ####[facility] LABORATORYCLIA [id number] [address] STATES OF [facility] WBC (Bld) [#/Vol] 8.39 10*3/uL Normal 3.70-11.00 [facility] Comment on above: Order Comment: Speci men Type: BLOOD SPECIMENOrdering Facility: [facility] Address: [address] [place] [address] Performed By: #### 5 7021-8 ####[facility] LABORATORYCLIA [id number] [address] [place] BRAIN WO IVCONon 08-13-[address] BRAIN WO IVCON Normal [facility] CT BRAIN WO IVCON Normal [facility] Magnesium SerPl-mCncon 08-12 Magnesium [Mass/Vol] 2.0 mg/dL Normal 1.7-2.3 [facility] Comment on above: Order Comment: Speci men Type: BLOOD SPECIMENOrdering Facility: [facility] Address: [address] [place] [address] Performed By: #### 2 4321-2, 62687-4, 2777-1 ####[facility] LABORATORYCLIA [id number] [address] Phosphate SerPl-mCncon 08-12 Phosphate [Mass/Vol] 2.9 mg/dL Normal 2.7-4.8 [facility] Comment on above: Order Comment: Speci men Type: BLOOD SPECIMENOrdering Facility: [facility] Address: [address] [place] [address] Performed By: #### 2 4321-2, 95445-2, 2777-1 ####[facility] LABORATORYCLIA [id number] [address] THERAPY NTon 08-12-2021 THERAPY NT Normal [facility] THERAPY NT Normal [facility] aPTT PPPon 08-12-2021 aPTT Coag (PPP) [Time] 94.2 s High 23.0-32.4 [facility] Comment on above: Order Comment: Speci men Type: BLOOD SPECIMENOrdering Facility: [facility] Address: [address] [place] [address] Performed By: #### 1 4979-9 ####[facility] LABORATORYCLIA [id number] [address] aPTT Coag (PPP) [Time] 84.4 s High 23.0-32.4 [facility] Comment on above: Order Comment: Speci men Type: BLOOD SPECIMENOrdering Facility: [facility] Address: [address] [place] [address] Performed By: #### 1 4979-9 ####[facility] LABORATORYCLIA [id number] [address] aPTT Coag (PPP) [Time] 71.3 s High 23.0-32.4 [facility] Comment on above: Order Comment: Speci men Type: BLOOD SPECIMENOrdering Facility: [facility] Address: [address] [place] [address] Performed By: #### 1 4979-9 ####[facility] LABORATORYCLIA [id number] [address] OF [facility] ALLIED HEALTHon 08-11-2021 ALLIED HEALTH Normal [facility] CBC W Auto Differential pane l (Bld)on 08-11-2021 Basophils (Bld) [#/Vol] 10*3/uL Normal <0.11 [facility] Comment on above: Order Comment: Speci men Type: BLOOD SPECIMENOrdering Facility: [facility] Address: [address] [place] [address] Performed By: #### 5 7021-8 ####[facility]ATORYCLIA [id number] [address] [place] [facility] Basophils/100 WBC (Bld) 0.2 % Normal [facility] Comment on above: Order Comment: Speci men Type: BLOOD SPECIMENOrdering Facility: [facility] Address: [address] [place] [address] Performed By: #### 5 7021-8 ####[facility] LABORATORYCLIA [id number] [address] [place] Differential cell count method Nom (Bld) Auto Normal [facility] Comment on above: Order Comment: Speci men Type: BLOOD SPECIMENOrdering Facility: [facility] Address: [address] [place] [address] Performed By: #### 5 7021-8 ####[facility]ORATORYCLIA [id number] [address] [place] Eosinophils (Bld) [#/Vol] 0.16 10*3/uL Normal <0.46 [facility] Comment on above: Order Comment: Speci men Type: BLOOD SPECIMENOrdering Facility: [facility] Address: [address] [place] [address] Performed By: #### 5 7021-8 ####[facility]ORATORYCLIA [id number] [address] [place] Eosinophils/100 WBC (Bld) 1.8 % Normal [facility] Comment on above: Order Comment: Speci men Type: BLOOD SPECIMENOrdering Facility: [facility] Address: [address] [place] [address] Performed By: #### 5 7021-8 ####[facility]ATORYCLIA [id number] [address] [place] Erythrocyte distribution width (RBC) [Ratio] 17.3 % High 11.5-15.0 [facility] Comment on above: Order Comment: Speci men Type: BLOOD SPECIMENOrdering Facility: [facility] Address: [address] [place] [address] Performed By: #### 5 7021-8 ####[facility]ORATORYCLIA [id number] [address] Hematocrit (Bld) [Volume fraction] 26.6 % Low 39.0-51.0 [facility] Comment on above: Order Comment: Speci men Type: BLOOD SPECIMENOrdering Facility: [facility] Address: [address] [place] [address] Performed By: #### 5 7021-8 ####[facility]ORATORYCLIA [id number] [address] Hemoglobin (Bld) [Mass/Vol] 8.2 g/dL Low 13.0-17.0 [facility] Comment on above: Order Comment: Speci men Type: BLOOD SPECIMENOrdering Facility: [facility] Address: [address] [place] [address] Performed By: #### 5 7021-8 ####[facility]ORATORYCLIA [id number] [address] IMMATURE GRAN % 0.6 % Normal [facility] Comment on above: Order Comment: Speci men Type: BLOOD SPECIMENOrdering Facility: [facility] Address: [address] [place] [address] Performed By: #### 5 7021-8 ####[facility]ORATORYCLIA [id number] [address] IMMATURE GRAN ABS 0.05 k/uL Normal <0.10 [facility] Comment on above: Order Comment: Speci men Type: BLOOD SPECIMENOrdering Facility: [facility] Address: [address] [place] [address] Performed By: #### 5 7021-8 ####[facility]ORATORYCLIA [id number] [address] Lymphocytes (Bld) [#/Vol] 1.40 10*3/uL Normal 1.00-4.00 [facility] Comment on above: Order Comment: Speci men Type: BLOOD SPECIMENOrdering Facility: [facility] Address: [address] [place] [address] Performed By: #### 5 7021-8 ####[facility]ORATORYCLIA [id number] [address] Lymphocytes/100 WBC (Bld) 15.8 % Normal [facility] Comment on above: Order Comment: Speci men Type: BLOOD SPECIMENOrdering Facility: [facility] Address: [address] [place] [address] Performed By: #### 5 7021-8 ####[facility] LABORATORYCLIA [id number] [address] STATES OF [facility] MCH (RBC) [Entitic mass] 28.4 pg Normal 26.0-34.0 [facility] Comment on above: Order Comment: Speci men Type: BLOOD SPECIMENOrdering Facility: [facility] Address: [address] [place] [address] Performed By: #### 5 7021-8 ####[facility]ORATORYCLIA [id number] [address] [place] [facility] MCHC (RBC) [Mass/Vol] 30.8 g/dL Normal 30.5-36.0 [facility] Comment on above: Order Comment: Speci men Type: BLOOD SPECIMENOrdering Facility: [facility] Address: [address] [place] [address] Performed By: #### 5 7021-8 ####[facility]ORATORYCLIA [id number] [address] [place] [facility] MCV (RBC) [Entitic vol] 92.0 fL Normal 80.0-100.0 [facility] Comment on above: Order Comment: Speci men Type: BLOOD SPECIMENOrdering Facility: [facility] Address: [address] [place] [address] Performed By: #### 5 7021-8 ####[facility]ORATORYCLIA [id number] [place] [address] [place] Monocytes (Bld) [#/Vol] 0.61 10*3/uL Normal <0.87 [facility] Comment on above: Order Comment: Speci men Type: BLOOD SPECIMENOrdering Facility: [facility] Address: [address] [place] [address] Performed By: #### 5 7021-8 ####[facility]ORATORYCLIA [id number] [address] [place] Monocytes/100 WBC (Bld) 6.9 % Normal [facility] Comment on above: Order Comment: Speci men Type: BLOOD SPECIMENOrdering Facility: [facility] Address: [address] [place] [address] Performed By: #### 5 7021-8 ####[facility]ORATORYCLIA [id number] [address] [place] Neutrophils (Bld) [#/Vol] 6.62 10*3/uL Normal 1.45-7.50 [facility] Comment on above: Order Comment: Speci men Type: BLOOD SPECIMENOrdering Facility: [facility] Address: [address] [place] [address] Performed By: #### 5 7021-8 ####[facility]ORATORYCLIA [id number] [address] [place] Neutrophils/100 WBC (Bld) 74.7 % Normal [facility] Comment on above: Order Comment: Speci men Type: BLOOD SPECIMENOrdering Facility: [facility] Address: [address] [place] [address] Performed By: #### 5 7021-8 ####[facility]ORATORYCLIA [id number] [address] [place] Nucleated RBC (Bld) [#/Vol] 10*3/uL Normal <0.01 [facility] Comment on above: Order Comment: Speci men Type: BLOOD SPECIMENOrdering Facility: [facility] Address: [address] [place] [address] Performed By: #### 5 7021-8 ####[facility]ORATORYCLIA [id number] [address] [place] Nucleated RBC/100 WBC (Bld) [Ratio] 0.0 /100 WBC Normal [facility] Comment on above: Order Comment: Speci men Type: BLOOD SPECIMENOrdering Facility: [facility] Address: [address] [place] [address] Performed By: #### 5 7021-8 ####[facility]ORATORYCLIA [id number] [place] [address] [place] Platelet mean volume (Bld) [Entitic vol] 9.8 fL Normal 9.0-12.7 [facility] Comment on above: Order Comment: Speci men Type: BLOOD SPECIMENOrdering Facility: [facility] Address: [address] [place] [address] Performed By: #### 5 7021-8 ####[facility]ORATORYCLIA [id number] [address] [place] Platelets (Bld) [#/Vol] 157 10*3/uL Normal 150-400 [facility] Comment on above: Order Comment: Speci men Type: BLOOD SPECIMENOrdering Facility: [facility] Address: [address] [place] [address] Performed By: #### 5 7021-8 ####[facility]ORATORYCLIA [id number] [address] [place] RBC (Bld) [#/Vol] 2.89 10*6/uL Low 4.20-6.00 [facility] Comment on above: Order Comment: Speci men Type: BLOOD SPECIMENOrdering Facility: [facility] Address: [address] [place] [address] Performed By: #### 5 7021-8 ####[facility]ORATORYCLIA [id number] [address] [place] WBC (Bld) [#/Vol] 8.86 10*3/uL Normal 3.70-11.00 [facility] Comment on above: Order Comment: Speci men Type: BLOOD SPECIMENOrdering Facility: [facility] Address: [address] [place] [address] Performed By: #### 5 7021-8 ####[facility]ORATORYCLIA [id number] [address] [place] [facility] CBC panel Auto (Bld)on 08-11 Erythrocyte distribution width (RBC) [Ratio] 17.2 % High 11.5-15.0 [facility] Comment on above: Order Comment: Speci men Type: BLOOD SPECIMENOrdering Facility: [facility] Address: [address] [place] [address] Performed By: #### 5 8410-2 ####[facility]ORATORYCLIA [id number] [address] [place] [facility] Hematocrit (Bld) [Volume fraction] 27.0 % Low 39.0-51.0 [facility] Comment on above: Order Comment: Speci men Type: BLOOD SPECIMENOrdering Facility: [facility] Address: [address] [place] [address] Performed By: #### 5 8410-2 ####[facility] LABORATORYCLIA [id number] [address] [place] [facility] Hemoglobin (Bld) [Mass/Vol] 8.3 g/dL Low 13.0-17.0 [facility] Comment on above: Order Comment: Speci men Type: BLOOD SPECIMENOrdering Facility: [facility] Address: [address] [place] [address] Performed By: #### 5 8410-2 ####[facility]ORATORYCLIA [id number] [address] MCH (RBC) [Entitic mass] 28.7 pg Normal 26.0-34.0 [facility] Comment on above: Order Comment: Speci men Type: BLOOD SPECIMENOrdering Facility: [facility] Address: [address] [address] Performed By: #### 5 8410-2 ####[facility]ORATORYCLIA [id number] [address] [place] [facility] MCHC (RBC) [Mass/Vol] 30.7 g/dL Normal 30.5-36.0 [facility] Comment on above: Order Comment: Speci men Type: BLOOD SPECIMENOrdering Facility: [facility] Address: [address] [place] [address] Performed By: #### 5 8410-2 ####[facility]ORATORYCLIA [id number] [address] [place] MCV (RBC) [Entitic vol] 93.4 fL Normal 80.0-100.0 [facility] Comment on above: Order Comment: Speci men Type: BLOOD SPECIMENOrdering Facility: [facility] Address: [address] [place] [address] Performed By: #### 5 8410-2 ####[facility]ORATORYCLIA [id number] [address] [place] Nucleated RBC (Bld) [#/Vol] 10*3/uL Normal <0.01 [facility] Comment on above: Order Comment: Speci men Type: BLOOD SPECIMENOrdering Facility: [facility] Address: [address] [place] [address] Performed By: #### 5 8410-2 ####[facility]ORATORYCLIA [id number] [address] Platelet mean volume (Bld) [Entitic vol] 9.8 fL Normal 9.0-12.7 [facility] Comment on above: Order Comment: Speci men Type: BLOOD SPECIMENOrdering Facility: [facility] Address: [address] [place] [address] Performed By: #### 5 8410-2 ####[facility] LABORATORYCLIA [id number] [place] [address] [place] Platelets (Bld) [#/Vol] 169 10*3/uL Normal 150-400 [facility] Comment on above: Order Comment: Speci men Type: BLOOD SPECIMENOrdering Facility: [facility] Address: [address] [place] [address] Performed By: #### 5 8410-2 ####[facility]ORATORYCLIA [id number] [place] [address] [place] RBC (Bld) [#/Vol] 2.89 10*6/uL Low 4.20-6.00 [facility] Comment on above: Order Comment: Speci men Type: BLOOD SPECIMENOrdering Facility: [facility] Address: [address] [place] [address] Performed By: #### 5 8410-2 ####[facility]ORATORYCLIA [id number] [address] OF [facility] WBC (Bld) [#/Vol] 9.03 10*3/uL Normal 3.70-11.00 [facility] Comment on above: Order Comment: Speci men Type: BLOOD SPECIMENOrdering Facility: [facility] Address: [address] [place] [address] Performed By: #### 5 8410-2 ####[facility]ORATORYCLIA [id number] [address] OF [facility] CT BRAIN WO IVCONon 08-12-19 CT BRAIN WO IVCON Normal [facility] PT panel Coag (PPP)on 2021 INR Coag (PPP) [Relative time] 1.0 {INR} Normal 0.9-1.3 [facility] Comment on above: Order Comment: Speci men Type: BLOOD SPECIMENOrdering Facility: [facility] Address: [address] [place] [address] Result Comment: Yris min K Antagonist (VKA) Therapeutic Range: INR 2 to 3 (Target INR of 2.5)Note: For patients treated with VKA drugs, such as warfarin, the [place] [employer] 2012 Guideline recommends [...] al. Chest 2012, 141:7S-47SNishimpatricia RA, et al. [facility] 2017, 70: 252-289 Performed By: #### 1 4979-9, 65118-3 ####[facility]ORATORYCLIA [id number] [address] PT Coag (PPP) [Time] 11.4 s Normal 9.7-13.0 [facility] Comment on above: Order Comment: Speci francia Type: BLOOD SPECIMENOrdering Facility: [facility] Address: [address] [place] [address] Performed By: #### 1 4979-9, 52770-3 ####[facility]REMENCLIA [id number] [address] THERAPY NTon 08-11-2021 THERAPY NT Normal [facility] US DVT LOWER BILon 2 US DVT LOWER RAINER Normal [facility] US DVT UPPER BILon 2 US DVT UPPER RAINER Normal [facility] aPTT PPPon 08-11-2021 aPTT Coag (PPP) [Time] 26.9 s Normal 23.0-32.4 [facility] Comment on above: Order Comment: Shira feldman Type: BLOOD SPECIMENOrdering Facility: [facility] Address: [address] [place] [address] Performed By: #### 1 4979-9, 41224-6 ####[facility] LABORATORYCLIA [id number] [address] [place] Basic metabolic 2000 panelon 08-10-2021 Anion gap [Moles/Vol] 11 mmol/L Normal 9-18 [facility] Comment on above: Order Comment: Speci men Type: BLOOD SPECIMENOrdering Facility: [facility] Address: [address] [place] [address] Performed By: #### 2 4321-2 ####[facility] LABORATORYCLIA [id number] [place] [address] [place] Calcium [Mass/Vol] 8.7 mg/dL Normal 8.5-10.2 [facility] Comment on above: Order Comment: Speci men Type: BLOOD SPECIMENOrdering Facility: [facility] Address: [address] [place] [address] Performed By: #### 2 1-2 ####[facility]ORATORYCLIA [id number] [place] [address] [place] Chloride [Moles/Vol] 98 mmol/L Normal 97-105 [facility] Comment on above: Order Comment: Speci men Type: BLOOD SPECIMENOrdering Facility: [facility] Address: [address] [place] [address] Performed By: #### 2 4321-2 ####[facility]ORATORYCLIA [id number] [place] [address] [place] CO2 [Moles/Vol] 28 mmol/L Normal 22-30 [facility] Comment on above: Order Comment: Speci men Type: BLOOD SPECIMENOrdering Facility: [facility] Address: [address] [place] [address] Performed By: #### 2 4321-2 ####[facility]ORATORYCLIA [id number] [place] [address] [place] Creatinine [Mass/Vol] 0.59 mg/dL Low 0.73-1.22 [facility] Comment on above: Order Comment: Speci men Type: BLOOD SPECIMENOrdering Facility: [facility] Address: [address] [place] [address] Performed By: #### 2 4321-2 ####[facility]ORATORYCLIA [id number] [place] [address] [place] ESTIMATED GLOMERULAR FILTRATION RATE 105 mL/min/1.73m??? Normal >=60 [facility] Comment on above: Order Comment: Shira feldman Type: BLOOD SPECIMENOrdering Facility: [facility] Address: [address] [place] [address] Result Comment: Luzmaria mated Glomerular Filtration Rate [...] GFR. Performed By: #### 2 4321-2 ####[facility]GIA [id number] [place] [address] [place] Glucose [Mass/Vol] 118 mg/dL High 74-99 [facility] Comment on above: Order Comment: Shira feldman Type: BLOOD SPECIMENOrdering Facility: [facility] Address: [address] [place] [address] Result Comment: The [place] [employer] (ADA) provides guidance for cutoff [...] Standards of Medical Care in Diabetes 2016, [place] [employer]. Diabetes Care. 2016.39(Suppl 1). Performed By: #### 2 4321-2 ####[facility] LABORATORYCLIA [id number] [place] [id number] [place] Potassium [Moles/Vol] 3.7 mmol/L Normal 3.7-5.1 [facility] Comment on above: Order Comment: Speci men Type: BLOOD SPECIMENOrdering Facility: [facility] Address: [address] [address] Performed By: #### 2 4321-2 ####[facility]ORATORYCLIA [id number] [place] [address] [place] Sodium [Moles/Vol] 137 mmol/L Normal 136-144 [facility] Comment on above: Order Comment: Speci men Type: BLOOD SPECIMENOrdering Facility: [facility] Address: [address] [address] Performed By: #### 2 4321-2 ####[facility]ORATORYCLIA [id number] [place] [address] [place] Urea nitrogen [Mass/Vol] 23 mg/dL Normal 9-24 [facility] Comment on above: Order Comment: Speci men Type: BLOOD SPECIMENOrdering Facility: [facility] Address: [address] [place] [address] Performed By: #### 2 432-2 ####[facility]ORATORYCLIA [id number] [place] [address] [place] Anion gap [Moles/Vol] 17 mmol/L Normal 9-18 [facility] Comment on above: Order Comment: Speci men Type: BLOOD SPECIMENOrdering Facility: [facility] Address: [address] [address] Performed By: #### 1 9123-9, 2777, 14192-0 ####[facility]ORATORYCLIA [id number] [place] [address] [place] Calcium [Mass/Vol] 7.7 mg/dL Low 8.5-10.2 [facility] Comment on above: Order Comment: Speci men Type: BLOOD SPECIMENOrdering Facility: [facility] Address: [address] [address] Performed By: #### 1 9123-9, 2777-1, 26686-9 ####[facility]ORATORYCLIA [id number] [address] OF [facility] Chloride [Moles/Vol] 86 mmol/L Low 97-105 [facility] Comment on above: Order Comment: Speci men Type: BLOOD SPECIMENOrdering Facility: [facility] Address: [address] [place] [address] Performed By: #### 1 9123-9, 2777-1, 91886-2 ####[facility]ORATORYCLIA [id number] [address] CO2 [Moles/Vol] 24 mmol/L Normal 22-30 [facility] Comment on above: Order Comment: Speci men Type: BLOOD SPECIMENOrdering Facility: [facility] Address: [address] [place] [address] Performed By: #### 1 9123-9, 2777-1, 35984-8 ####[facility]CLIA [id number] [address] Creatinine [Mass/Vol] 0.53 mg/dL Low 0.73-1.22 [facility] Comment on above: Order Comment: Speci men Type: BLOOD SPECIMENOrdering Facility: [facility] Address: [address] [place] [address] Performed By: #### 1 9123-9, 2777-1, 68995-4 ####[facility] LABORATORYCLIA [id number] [address] ESTIMATED GLOMERULAR FILTRATION RATE 108 mL/min/1.73m??? Normal >=60 [facility] Comment on above: Order Comment: Speci men Type: BLOOD SPECIMENOrdering Facility: [facility] Address: [address] [place] [address] Result Comment: Luzmaria mated Glomerular Filtration Rate [...] GFR. Performed By: #### 1 9123-9, 2777-1, 21828-4 ####[facility] LABORATORYCLIA [id number] [place] [address] [place] Glucose [Mass/Vol] 455 mg/dL High 74-99 [facility] Comment on above: Order Comment: Speci men Type: BLOOD SPECIMENOrdering Facility: [facility] Address: [address] [id number] Result Comment: The [place] [employer] (ADA) provides guidance for cutoff [...] Standards of Medical Care in Diabetes 2016, [place] [employer]. Diabetes Care. 2016.39(Suppl 1). Performed By: #### 1 9123-9, 2777-, 67887-1 ####[facility] LABORATORYCLIA [id number] [place] [address] [place] Potassium [Moles/Vol] 3.4 mmol/L Low 3.7-5.1 [facility] Comment on above: Order Comment: Speci men Type: BLOOD SPECIMENOrdering Facility: [facility] Address: [address] [phone] Performed By: #### 1 9123-9, 2777-1, 50042-6 ####[facility] LABORATORYIA [id number] [place] [address] [place] Sodium [Moles/Vol] 127 mmol/L Low 136-144 [facility] Comment on above: Order Comment: Johni men Type: BLOOD SPECIMENOrdering Facility: [facility] Address: [address] [id number] Performed By: #### 1 9123-9, 2777-1, 41506-9 ####[facility] LABORATORYCLIA [id number] [address] [place] [facility] Urea nitrogen [Mass/Vol] 21 mg/dL Normal 9-24 [facility] Comment on above: Order Comment: Speci men Type: BLOOD SPECIMENOrdering Facility: [facility] Address: [address] [place] [address] Performed By: #### 1 9123-9, 2777-1, 41544-2 ####[facility] LABORATORYCLIA [id number] [address] CASE MANAGEMon 08-10-2021 CASE MANAGEM Normal [facility] CBC W Auto Differential pane l (Bld)on 08-10-2021 Basophils (Bld) [#/Vol] 0.04 10*3/uL Normal <0.11 [facility] Comment on above: Order Comment: Speci men Type: BLOOD SPECIMENOrdering Facility: [facility] Address: [address] [place] [address] Performed By: #### 5 7021-8 ####[facility] LABORATORYCLIA [id number] [address] [place] [facility] Basophils/100 WBC (Bld) 0.4 % Normal [facility] Comment on above: Order Comment: Speci men Type: BLOOD SPECIMENOrdering Facility: [facility] Address: [address] [place] [address] Performed By: #### 5 7021-8 ####[facility] LABORATORYCLIA [id number] [address] [place] [facility] Differential cell count method Nom (Bld) Auto Normal [facility] Comment on above: Order Comment: Speci men Type: BLOOD SPECIMENOrdering Facility: [facility] Address: [address] [place] [address] Performed By: #### 5 7021-8 ####[facility] LABORATORYCLIA [id number] [address] [place] Eosinophils (Bld) [#/Vol] 0.11 10*3/uL Normal <0.46 [facility] Comment on above: Order Comment: Speci men Type: BLOOD SPECIMENOrdering Facility: [facility] Address: [address] [place] [address] Performed By: #### 5 7021-8 ####[facility] LABORATORYCLIA [id number] [address] [place] Eosinophils/100 WBC (Bld) 1.1 % Normal [facility] Comment on above: Order Comment: Speci men Type: BLOOD SPECIMENOrdering Facility: [facility] Address: [address] [place] [address] Performed By: #### 5 7021-8 ####[facility]ORATORYCLIA [id number] [address] Erythrocyte distribution width (RBC) [Ratio] 17.2 % High 11.5-15.0 [facility] Comment on above: Order Comment: Speci men Type: BLOOD SPECIMENOrdering Facility: [facility] Address: [address] [place] [address] Performed By: #### 5 7021-8 ####[facility] LABORATORYCLIA [id number] [address] Hematocrit (Bld) [Volume fraction] 25.5 % Low 39.0-51.0 [facility] Comment on above: Order Comment: Speci men Type: BLOOD SPECIMENOrdering Facility: [facility] Address: [address] [address] Performed By: #### 5 7021-8 ####[facility] LABORATORYCLIA [id number] [address] [place] Hemoglobin (Bld) [Mass/Vol] 7.9 g/dL Low 13.0-17.0 [facility] Comment on above: Order Comment: Speci men Type: BLOOD SPECIMENOrdering Facility: [facility] Address: [address] [place] [address] Performed By: #### 5 7021-8 ####[facility]ORATORYCLIA [id number] [address] IMMATURE GRAN % 0.4 % Normal [facility] Comment on above: Order Comment: Speci men Type: BLOOD SPECIMENOrdering Facility: [facility] Address: [address] [place] [address] Performed By: #### 5 7021-8 ####[facility] LABORATORYCLIA [id number] [address] IMMATURE GRAN ABS 0.04 k/uL Normal <0.10 [facility] Comment on above: Order Comment: Speci men Type: BLOOD SPECIMENOrdering Facility: [facility] Address: [address] [place] [address] Performed By: #### 5 7021-8 ####[facility]ORATORYCLIA [id number] [address] Lymphocytes (Bld) [#/Vol] 1.66 10*3/uL Normal 1.00-4.00 [facility] Comment on above: Order Comment: Speci men Type: BLOOD SPECIMENOrdering Facility: [facility] Address: [address] [place] [address] Performed By: #### 5 7021-8 ####[facility]ORATORYCLIA [id number] [address] Lymphocytes/100 WBC (Bld) 16.2 % Normal [facility] Comment on above: Order Comment: Speci men Type: BLOOD SPECIMENOrdering Facility: [facility] Address: [address] [place] [address] Performed By: #### 5 7021-8 ####[facility] LABORATORYCLIA [id number] [address] MCH (RBC) [Entitic mass] 28.5 pg Normal 26.0-34.0 [facility] Comment on above: Order Comment: Speci men Type: BLOOD SPECIMENOrdering Facility: [facility] Address: [address] [place] [address] Performed By: #### 5 7021-8 ####[facility]ORATORYCLIA [id number] [address] MCHC (RBC) [Mass/Vol] 31.0 g/dL Normal 30.5-36.0 [facility] Comment on above: Order Comment: Speci men Type: BLOOD SPECIMENOrdering Facility: [facility] Address: [address] [place] [address] Performed By: #### 5 7021-8 ####[facility]ORATORYCLIA [id number] [address] MCV (RBC) [Entitic vol] 92.1 fL Normal 80.0-100.0 [facility] Comment on above: Order Comment: Speci men Type: BLOOD SPECIMENOrdering Facility: [facility] Address: [address] [place] [address] Performed By: #### 5 7021-8 ####[facility]ORATORYCLIA [id number] [address] Monocytes (Bld) [#/Vol] 0.51 10*3/uL Normal <0.87 [facility] Comment on above: Order Comment: Speci men Type: BLOOD SPECIMENOrdering Facility: [facility] Address: [address] [place] [address] Performed By: #### 5 7021-8 ####[facility] LABORATORYCLIA [id number] [address] Monocytes/100 WBC (Bld) 5.0 % Normal [facility] Comment on above: Order Comment: Speci men Type: BLOOD SPECIMENOrdering Facility: [facility] Address: [address] [place] [address] Performed By: #### 5 7021-8 ####[facility]ORATORYCLIA [id number] [address] [place] Neutrophils (Bld) [#/Vol] 7.91 10*3/uL High 1.45-7.50 [facility] Comment on above: Order Comment: Speci men Type: BLOOD SPECIMENOrdering Facility: [facility] Address: [address] [place] [address] Performed By: #### 5 7021-8 ####[facility]ORATORYCLIA [id number] [address] [place] Neutrophils/100 WBC (Bld) 76.9 % Normal [facility] Comment on above: Order Comment: Speci men Type: BLOOD SPECIMENOrdering Facility: [facility] Address: [address] [place] [address] Performed By: #### 5 7021-8 ####[facility]ORATORYCLIA [id number] [address] [place] Nucleated RBC (Bld) [#/Vol] 10*3/uL Normal <0.01 [facility] Comment on above: Order Comment: Speci men Type: BLOOD SPECIMENOrdering Facility: [facility] Address: [address] [place] [address] Performed By: #### 5 7021-8 ####[facility]ORATORYCLIA [id number] [address] [place] Nucleated RBC/100 WBC (Bld) [Ratio] 0.0 /100 WBC Normal [facility] Comment on above: Order Comment: Speci men Type: BLOOD SPECIMENOrdering Facility: [facility] Address: [address] [place] [address] Performed By: #### 5 7021-8 ####[facility]ORATORYCLIA [id number] [place] [address] [place] Platelet mean volume (Bld) [Entitic vol] 10.3 fL Normal 9.0-12.7 [facility] Comment on above: Order Comment: Speci men Type: BLOOD SPECIMENOrdering Facility: [facility] Address: [address] [place] [address] Performed By: #### 5 7021-8 ####[facility]ORATORYCLIA [id number] [address] [place] [facility] Platelets (Bld) [#/Vol] 152 10*3/uL Normal 150-400 [facility] Comment on above: Order Comment: Speci men Type: BLOOD SPECIMENOrdering Facility: [facility] Address: [address] [place] [address] Performed By: #### 5 7021-8 ####[facility]ORATORYCLIA [id number] [address] [place] [facility] RBC (Bld) [#/Vol] 2.77 10*6/uL Low 4.20-6.00 [facility] Comment on above: Order Comment: Speci men Type: BLOOD SPECIMENOrdering Facility: [facility] Address: [address] [place] [address] Performed By: #### 5 7021-8 ####[facility]ORATORYCLIA [id number] [address] WBC (Bld) [#/Vol] 10.27 10*3/uL Normal 3.70-11.00 [facility] Comment on above: Order Comment: Speci men Type: BLOOD SPECIMENOrdering Facility: [facility] Address: [address] [place] [address] Performed By: #### 5 7021-8 ####[facility]ORATORYCLIA [id number] [address] [place] Magnesium SerPl-mCncon 08-10 Magnesium [Mass/Vol] 1.8 mg/dL Normal 1.7-2.3 [facility] Comment on above: Order Comment: Speci men Type: BLOOD SPECIMENOrdering Facility: [facility] Address: [address] [place] [address] Performed By: #### 1 9123-9, 2777-1, 23089-9 ####[facility]ORATORYCLIA [id number] [address] NURSING PROGon 08-10-2021 NURSING PROG Normal [facility] NURSING PROG Normal [facility] NUTRITIONon 08-10-2021 NUTRITION Normal [facility] Phosphate SerPl-mCncon 08-10 Phosphate [Mass/Vol] 3.7 mg/dL Normal 2.7-4.8 [facility] Comment on above: Order Comment: Speci men Type: BLOOD SPECIMENOrdering Facility: [facility] Address: [address] [place] [address] Performed By: #### 1 9123-9, 2777-1, 85962-9 ####[facility]ORATORYCLIA [id number] [address] OF [facility] ALLIED HEALTHon 08-09-2021 ALLIED HEALTH Normal [facility] ANES POSTPROC EVALon 022 ANES POSTPROC EVAL Normal [facility] ANES PRE-OPon 08-09-2021 ANES PRE-OP Normal [facility] BRIEF OP NOTon 08-09-2021 BRIEF OP NOT Normal [facility] Basic metabolic 2000 panelon 08-09-2021 Anion gap [Moles/Vol] 8 mmol/L Low 9-18 [facility] Comment on above: Order Comment: Speci men Type: BLOOD SPECIMENOrdering Facility: [facility] Address: [address] [place] [address] Performed By: #### 2 4321-2, , 2776- ####[facility]ORATORYCLIA [id number] [address] [place] Calcium [Mass/Vol] 9.2 mg/dL Normal 8.5-10.2 [facility] Comment on above: Order Comment: Speci men Type: BLOOD SPECIMENOrdering Facility: [facility] Address: [address] [place] [address] Performed By: #### 2 4321-2, 95354-4, 277- ####[facility]ORATORYCLIA [id number] [place] [address] [place] Chloride [Moles/Vol] 97 mmol/L Normal 97-105 [facility] Comment on above: Order Comment: Speci men Type: BLOOD SPECIMENOrdering Facility: [facility] Address: [address] [place] [address] Performed By: #### 2 4321-2, , 2776-05 ####[facility] LABORATORYCLIA [id number] [address] [id number] [place] CO2 [Moles/Vol] 30 mmol/L Normal 22-30 [facility] Comment on above: Order Comment: Speci men Type: BLOOD SPECIMENOrdering Facility: [facility] Address: [address] [place] [address] Performed By: #### 2 4321-2, , 2776-05 ####[facility]ORATORYCLIA [id number] [address] OF [facility] Creatinine [Mass/Vol] 0.51 mg/dL Low 0.73-1.22 [facility] Comment on above: Order Comment: Speci men Type: BLOOD SPECIMENOrdering Facility: [facility] Address: [address] [place] [address] Performed By: #### 2 4321-2, , 2776-05 ####[facility]ORATORYCLIA [id number] [address] ESTIMATED GLOMERULAR FILTRATION RATE 110 mL/min/1.73m??? Normal >=60 [facility] Comment on above: Order Comment: Speci men Type: BLOOD SPECIMENOrdering Facility: [facility] Address: [address] [place] [address] Result Comment: Luzmaria mated Glomerular Filtration Rate [...] Performed By: #### 2 4321-2, , 2776-05 ####[facility]ORATORYCLIA [id number] [place] [address] [place] Glucose [Mass/Vol] 106 mg/dL High 74-99 [facility] Comment on above: Order Comment: Speci men Type: BLOOD SPECIMENOrdering Facility: [facility] Address: [address] [place] [address] Result Comment: The [place] [employer] (ADA) provides guidance for cutoff [...] Standards of Medical Care in Diabetes 2016, [place] [employer]. Diabetes Care. 2016.39(Suppl 1). Performed By: #### 2 4321-2, , 2776-05 ####[facility]ORATORYCLIA [id number] [place] [address] [place] Potassium [Moles/Vol] 4.1 mmol/L Normal 3.7-5.1 [facility] Comment on above: Order Comment: Speci men Type: BLOOD SPECIMENOrdering Facility: [facility] Address: [address] Performed By: #### 2 4321-2, , 2776-05 ####[facility]ORATORYCLIA [id number] [place] [address] [place] Sodium [Moles/Vol] 135 mmol/L Low 136-144 [facility] Comment on above: Order Comment: Speci men Type: BLOOD SPECIMENOrdering Facility: [facility] Address: [address] [place] [address] Performed By: #### 2 4321-2, , 2776-05 ####[facility]ORATORYCLIA [id number] [place] [address] [place] [facility] Urea nitrogen [Mass/Vol] 26 mg/dL High 9-24 [facility] Comment on above: Order Comment: Speci men Type: BLOOD SPECIMENOrdering Facility: [facility] Address: [address] [place] [address] Performed By: #### 2 4321-2, , 2776-05 ####[facility]ORATORYCLIA [id number] [address] [place] CBC W Auto Differential pane l (Bld)on 08-09-2021 Basophils (Bld) [#/Vol] 0.06 10*3/uL Normal <0.11 [facility] Comment on above: Order Comment: Speci men Type: BLOOD SPECIMENOrdering Facility: [facility] Address: [address] [place] [address] Performed By: #### 5 7021-8 ####[facility] LABORATORYCLIA [id number] [address] [place] Basophils/100 WBC (Bld) 0.5 % Normal [facility] Comment on above: Order Comment: Speci men Type: BLOOD SPECIMENOrdering Facility: [facility] Address: [address] [place] [address] Performed By: #### 5 7021-8 ####[facility]ORATORYCLIA [id number] [address] Differential cell count method Nom (Bld) Auto Normal [facility] Comment on above: Order Comment: Speci men Type: BLOOD SPECIMENOrdering Facility: [facility] Address: [address] [place] [address] Performed By: #### 5 7021-8 ####[facility] LABORATORYCLIA [id number] [place] [address] [place] Eosinophils (Bld) [#/Vol] 0.42 10*3/uL Normal <0.46 [facility] Comment on above: Order Comment: Speci men Type: BLOOD SPECIMENOrdering Facility: [facility] Address: [address] [place] [address] Performed By: #### 5 7021-8 ####[facility] LABORATORYCLIA [id number] [address] [place] Eosinophils/100 WBC (Bld) 3.8 % Normal [facility] Comment on above: Order Comment: Speci men Type: BLOOD SPECIMENOrdering Facility: [facility] Address: [address] [place] [address] Performed By: #### 5 7021-8 ####[facility]ORATORYCLIA [id number] [address] [place] Erythrocyte distribution width (RBC) [Ratio] 17.6 % High 11.5-15.0 [facility] Comment on above: Order Comment: Speci men Type: BLOOD SPECIMENOrdering Facility: [facility] Address: [address] [place] [address] Performed By: #### 5 7021-8 ####[facility] LABORATORYCLIA [id number] [address] [place] Hematocrit (Bld) [Volume fraction] 29.3 % Low 39.0-51.0 [facility] Comment on above: Order Comment: Speci men Type: BLOOD SPECIMENOrdering Facility: [facility] Address: [address] [place] [address] Performed By: #### 5 7021-8 ####[facility] LABORATORYCLIA [id number] [address] [place] Hemoglobin (Bld) [Mass/Vol] 9.0 g/dL Low 13.0-17.0 [facility] Comment on above: Order Comment: Speci men Type: BLOOD SPECIMENOrdering Facility: [facility] Address: [address] [place] [address] Performed By: #### 5 7021-8 ####[facility] LABORATORYCLIA [id number] [address] IMMATURE GRAN % 0.5 % Normal [facility] Comment on above: Order Comment: Speci men Type: BLOOD SPECIMENOrdering Facility: [facility] Address: [address] [place] [address] Performed By: #### 5 7021-8 ####[facility] LABORATORYCLIA [id number] [address] IMMATURE GRAN ABS 0.05 k/uL Normal <0.10 [facility] Comment on above: Order Comment: Speci men Type: BLOOD SPECIMENOrdering Facility: [facility] Address: [address] [place] [address] Performed By: #### 5 7021-8 ####[facility] LABORATORYCLIA [id number] [address] Lymphocytes (Bld) [#/Vol] 2.00 10*3/uL Normal 1.00-4.00 [facility] Comment on above: Order Comment: Speci men Type: BLOOD SPECIMENOrdering Facility: [facility] Address: [address] [place] [address] Performed By: #### 5 7021-8 ####[facility] LABORATORYCLIA [id number] [address] Lymphocytes/100 WBC (Bld) 18.1 % Normal [facility] Comment on above: Order Comment: Speci men Type: BLOOD SPECIMENOrdering Facility: [facility] Address: [address] [place] [address] Performed By: #### 5 7021-8 ####[facility] LABORATORYCLIA [id number] [address] [place] MCH (RBC) [Entitic mass] 28.1 pg Normal 26.0-34.0 [facility] Comment on above: Order Comment: Speci men Type: BLOOD SPECIMENOrdering Facility: [facility] Address: [address] [place] [address] Performed By: #### 5 7021-8 ####[facility] LABORATORYCLIA [id number] [address] [place] MCHC (RBC) [Mass/Vol] 30.7 g/dL Normal 30.5-36.0 [facility] Comment on above: Order Comment: Speci men Type: BLOOD SPECIMENOrdering Facility: [facility] Address: [address] [place] [address] Performed By: #### 5 7021-8 ####[facility] LABORATORYCLIA [id number] [address] [place] [facility] MCV (RBC) [Entitic vol] 91.6 fL Normal 80.0-100.0 [facility] Comment on above: Order Comment: Speci men Type: BLOOD SPECIMENOrdering Facility: [facility] Address: [address] [place] [address] Performed By: #### 5 7021-8 ####[facility] LABORATORYCLIA [id number] [address] OF [facility] Monocytes (Bld) [#/Vol] 0.68 10*3/uL Normal <0.87 [facility] Comment on above: Order Comment: Speci men Type: BLOOD SPECIMENOrdering Facility: [facility] Address: [address] [place] [address] Performed By: #### 5 7021-8 ####[facility] LABORATORYCLIA [id number] [address] Monocytes/100 WBC (Bld) 6.2 % Normal [facility] Comment on above: Order Comment: Speci men Type: BLOOD SPECIMENOrdering Facility: [facility] Address: [address] [place] [address] Performed By: #### 5 7021-8 ####[facility] LABORATORYCLIA [id number] [address] [place] Neutrophils (Bld) [#/Vol] 7.82 10*3/uL High 1.45-7.50 [facility] Comment on above: Order Comment: Speci men Type: BLOOD SPECIMENOrdering Facility: [facility] Address: [address] [place] [address] Performed By: #### 5 7021-8 ####[facility] LABORATORYCLIA [id number] [address] Neutrophils/100 WBC (Bld) 70.9 % Normal [facility] Comment on above: Order Comment: Speci men Type: BLOOD SPECIMENOrdering Facility: [facility] Address: [address] [place] [address] Performed By: #### 5 7021-8 ####[facility] LABORATORYCLIA [id number] [address] [place] Nucleated RBC (Bld) [#/Vol] 10*3/uL Normal <0.01 [facility] Comment on above: Order Comment: Speci men Type: BLOOD SPECIMENOrdering Facility: [facility] Address: [address] [place] [address] Performed By: #### 5 7021-8 ####[facility] LABORATORYCLIA [id number] [address] Nucleated RBC/100 WBC (Bld) [Ratio] 0.0 /100 WBC Normal [facility] Comment on above: Order Comment: Speci men Type: BLOOD SPECIMENOrdering Facility: [facility] Address: [address] [place] [address] Performed By: #### 5 7021-8 ####[facility] LABORATORYCLIA [id number] [address] [place] Platelet mean volume (Bld) [Entitic vol] 10.1 fL Normal 9.0-12.7 [facility] Comment on above: Order Comment: Speci men Type: BLOOD SPECIMENOrdering Facility: [facility] Address: [address] [place] [address] Performed By: #### 5 7021-8 ####[facility] LABORATORYCLIA [id number] [place] [address] [place] Platelets (Bld) [#/Vol] 160 10*3/uL Normal 150-400 [facility] Comment on above: Order Comment: Speci men Type: BLOOD SPECIMENOrdering Facility: [facility] Address: [address] [place] [address] Performed By: #### 5 7021-8 ####[facility] LABORATORYCLIA [id number] [place] [address] [place] RBC (Bld) [#/Vol] 3.20 10*6/uL Low 4.20-6.00 [facility] Comment on above: Order Comment: Speci men Type: BLOOD SPECIMENOrdering Facility: [facility] Address: [address] [place] [address] Performed By: #### 5 7021-8 ####DUNN [facility]ATORYCLIA [id number] [address] STATES OF [facility] WBC (Bld) [#/Vol] 11.03 10*3/uL High 3.70-11.00 [facility] Comment on above: Order Comment: Speci men Type: BLOOD SPECIMENOrdering Facility: [facility] Address: [address] [place] [address] Performed By: #### 5 7021-8 ####[facility] LABORATORYCLIA [id number] [address] OF [facility] CONSULT PROGon 08-09-2021 CONSULT PROG Normal [facility] CT BRAIN WO IVCONon 08-10-[address] BRAIN WO IVCON Normal [facility] CT BRAIN WO IVCON Normal [facility] Magnesium SerPl-mCncon 08-09 Magnesium [Mass/Vol] 2.0 mg/dL Normal 1.7-2.3 [facility] Comment on above: Order Comment: Speci men Type: BLOOD SPECIMENOrdering Facility: [facility] Address: [address] [place] [address] Performed By: #### 2 4321-2, 13433-9, 2777-1 ####[facility] LABORATORYCLIA [id number] [place] [address] [place] NURSING PROGon 08-09-2021 NURSING PROG Normal [facility] OPERATIVE NOon 08-09-2021 OPERATIVE NO Normal [facility] PT panel Coag (PPP)on 2021 INR Coag (PPP) [Relative time] 1.1 {INR} Normal 0.9-1.3 [facility] Comment on above: Order Comment: Speccara feldman Type: BLOOD SPECIMENOrdering Facility: [facility] Address: [address] [address] Result Comment: Yris min K Antagonist (VKA) Therapeutic Range: INR 2 to 3 (Target INR of 2.5)Note: For patients treated with VKA drugs, such as warfarin, the [place] [employer] 2012 Guideline recommends [...] al. Chest 2012, 141:7S-47SAlba RA, et al. [facility] 2017, 70: 252-289 Performed By: #### 3 4528-0, 28533-4 ####[facility] LABORATORYCLIA [id number] [address] [place] PT Coag (PPP) [Time] 11.7 s Normal 9.7-13.0 [facility] Comment on above: Order Comment: Shira feldman Type: BLOOD SPECIMENOrdering Facility: [facility] Address: [address] [phone] Performed By: #### 3 4528-0, 60914-7 ####[facility] LABORATORYCLIA [id number] [place] [address] Phosphate SerPl-mCncon 08-09 Phosphate [Mass/Vol] 4.0 mg/dL Normal 2.7-4.8 [facility] Comment on above: Order Comment: Speci men Type: BLOOD SPECIMENOrdering Facility: [facility] Address: [address] [place] [address] Performed By: #### 2 4321-2, 32963-1, 2777-1 ####[facility] LABORATORYCLIA [id number] [address] THERAPY NTon 08-09-2021 THERAPY NT Normal [facility] THERAPY NT Normal [facility] TYPE AND SCREENon 08-09-2021 ABO O [facility] Comment on above: Order Comment: Speci men Type: BLOOD SPECIMENOrdering Facility: [facility] Address: [address] [place] [address] Performed By: #### T SCR ####[facility] BLOOD BANKCLIA [id number] [address] HISTORICAL AB SCR STATUS Negative [facility] Comment on above: Order Comment: Speci men Type: BLOOD SPECIMENOrdering Facility: [facility] Address: [address] [place] [address] Performed By: #### T SCR ####[facility] BLOOD BANKCLIA [id number] [address] Rh Nom (Bld) Positive [facility] Comment on above: Order Comment: Speci men Type: BLOOD SPECIMENOrdering Facility: [facility] Address: [address] [place] [address] Performed By: #### T SCR ####[facility] BLOOD BANKCLIA [id number] [address] TYPE AND SCREEN EXPIRATION 08/12/2021 23:59 Normal [facility] Comment on above: Order Comment: Speci men Type: BLOOD SPECIMENOrdering Facility: [facility] Address: [address] [place], [place] [phone] Performed By: #### T SCR ####[facility] BLOOD BANKCLIA [id number] [address] OF [facility] XR ABD 2V SUPINE W UPR/DECUB /CTLon 08-09-2021 XR ABD 2V SUPINE W UPR/DECUB/CTL Normal [facility] XR CHEST 1V FRONTALon 2021 XR CHEST 1V FRONTAL Normal [facility] XR NECK SOFT TISSUE 2V AP/LA Ton 08-09-2021 XR NECK SOFT TISSUE 2V AP/LAT Normal [facility] XR SKULL 2V AP/LATon 022 XR SKULL 2V AP/LAT Normal [facility] aPTT PPPon 08-09-2021 aPTT Coag (PPP) [Time] 26.8 s Normal 23.0-32.4 [facility] Comment on above: Order Comment: Speci men Type: BLOOD SPECIMENOrdering Facility: [facility] Address: [address] [place] [address] Performed By: #### 3 4528-0, 99000-1 ####[facility] LABORATORYCLIA [id number] [address] CASE MANAGEMon 08-08-2021 CASE MANAGEM Normal [facility] CBC W Auto Differential pane l (Bld)on 08-08-2021 Basophils (Bld) [#/Vol] 0.05 10*3/uL Normal <0.11 [facility] Comment on above: Order Comment: Speci men Type: BLOOD SPECIMENOrdering Facility: [facility] Address: [address] [address] Performed By: #### 5 7021-8 ####[facility] LABORATORYCLIA [id number] [address] Basophils/100 WBC (Bld) 0.5 % Normal [facility] Comment on above: Order Comment: Speci men Type: BLOOD SPECIMENOrdering Facility: [facility] Address: [address] [address] Performed By: #### 5 7021-8 ####[facility] LABORATORYCLIA [id number] [address] Differential cell count method Nom (Bld) Auto Normal [facility] Comment on above: Order Comment: Speci men Type: BLOOD SPECIMENOrdering Facility: [facility] Address: [address] [place] [address] Performed By: #### 5 7021-8 ####[facility]ATORYCLIA [id number] [address] Eosinophils (Bld) [#/Vol] 0.17 10*3/uL Normal <0.46 [facility] Comment on above: Order Comment: Speci men Type: BLOOD SPECIMENOrdering Facility: [facility] Address: [address] [place] [address] Performed By: #### 5 7021-8 ####[facility] LABORATORYCLIA [id number] [address] Eosinophils/100 WBC (Bld) 1.6 % Normal [facility] Comment on above: Order Comment: Speci men Type: BLOOD SPECIMENOrdering Facility: [facility] Address: [address] [place] [address] Performed By: #### 5 7021-8 ####[facility]ORATORYCLIA [id number] [address] Erythrocyte distribution width (RBC) [Ratio] 17.8 % High 11.5-15.0 [facility] Comment on above: Order Comment: Speci men Type: BLOOD SPECIMENOrdering Facility: [facility] Address: [address] [place] [address] Performed By: #### 5 7021-8 ####[facility]ATORYCLIA [id number] [address] Hematocrit (Bld) [Volume fraction] 29.6 % Low 39.0-51.0 [facility] Comment on above: Order Comment: Speci men Type: BLOOD SPECIMENOrdering Facility: [facility] Address: [address] [place] [address] Performed By: #### 5 7021-8 ####[facility] LABORATORYCLIA [id number] [address] Hemoglobin (Bld) [Mass/Vol] 9.0 g/dL Low 13.0-17.0 [facility] Comment on above: Order Comment: Speci men Type: BLOOD SPECIMENOrdering Facility: [facility] Address: [address] [place] [address] Performed By: #### 5 7021-8 ####[facility] LABORATORYCLIA [id number] [address] IMMATURE GRAN % 0.5 % Normal [facility] Comment on above: Order Comment: Speci men Type: BLOOD SPECIMENOrdering Facility: [facility] Address: [address] [place] [address] Performed By: #### 5 7021-8 ####[facility] LABORATORYCLIA [id number] [address] IMMATURE GRAN ABS 0.05 k/uL Normal <0.10 [facility] Comment on above: Order Comment: Speci men Type: BLOOD SPECIMENOrdering Facility: [facility] Address: [address] [place] [address] Performed By: #### 5 7021-8 ####[facility] LABORATORYCLIA [id number] [address] [place] Lymphocytes (Bld) [#/Vol] 1.93 10*3/uL Normal 1.00-4.00 [facility] Comment on above: Order Comment: Speci men Type: BLOOD SPECIMENOrdering Facility: [facility] Address: [address] [place] [address] Performed By: #### 5 7021-8 ####[facility]ATORYCLIA [id number] [address] Lymphocytes/100 WBC (Bld) 18.2 % Normal [facility] Comment on above: Order Comment: Speci men Type: BLOOD SPECIMENOrdering Facility: [facility] Address: [address] [place] [address] Performed By: #### 5 7021-8 ####[facility] LABORATORYCLIA [id number] [address] MCH (RBC) [Entitic mass] 28.1 pg Normal 26.0-34.0 [facility] Comment on above: Order Comment: Speci men Type: BLOOD SPECIMENOrdering Facility: [facility] Address: [address] [place] [address] Performed By: #### 5 7021-8 ####[facility] LABORATORYCLIA [id number] [address] MCHC (RBC) [Mass/Vol] 30.4 g/dL Low 30.5-36.0 [facility] Comment on above: Order Comment: Speci men Type: BLOOD SPECIMENOrdering Facility: [facility] Address: [address] [place] [address] Performed By: #### 5 7021-8 ####[facility]ORATORYCLIA [id number] [address] MCV (RBC) [Entitic vol] 92.5 fL Normal 80.0-100.0 [facility] Comment on above: Order Comment: Speci men Type: BLOOD SPECIMENOrdering Facility: [facility] Address: [address] [place] [address] Performed By: #### 5 7021-8 ####[facility]ORATORYCLIA [id number] [address] Monocytes (Bld) [#/Vol] 0.75 10*3/uL Normal <0.87 [facility] Comment on above: Order Comment: Speci men Type: BLOOD SPECIMENOrdering Facility: [facility] Address: [address] [place] [address] Performed By: #### 5 7021-8 ####[facility]ORATORYCLIA [id number] [place] [address] [place] Monocytes/100 WBC (Bld) 7.1 % Normal [facility] Comment on above: Order Comment: Speci men Type: BLOOD SPECIMENOrdering Facility: [facility] Address: [address] [place] [address] Performed By: #### 5 7021-8 ####[facility] LABORATORYCLIA [id number] [place] [address] [place] Neutrophils (Bld) [#/Vol] 7.65 10*3/uL High 1.45-7.50 [facility] Comment on above: Order Comment: Speci men Type: BLOOD SPECIMENOrdering Facility: [facility] Address: [address] [place] [address] Performed By: #### 5 7021-8 ####[facility]ORATORYCLIA [id number] [address] [place] Neutrophils/100 WBC (Bld) 72.1 % Normal [facility] Comment on above: Order Comment: Speci men Type: BLOOD SPECIMENOrdering Facility: [facility] Address: [address] [place] [address] Performed By: #### 5 7021-8 ####[facility]ORATORYCLIA [id number] [place] [address] [place] Nucleated RBC (Bld) [#/Vol] 10*3/uL Normal <0.01 [facility] Comment on above: Order Comment: Speci men Type: BLOOD SPECIMENOrdering Facility: [facility] Address: [address] [place] [address] Performed By: #### 5 7021-8 ####[facility] LABORATORYCLIA [id number] [address] [place] Nucleated RBC/100 WBC (Bld) [Ratio] 0.0 /100 WBC Normal [facility] Comment on above: Order Comment: Speci men Type: BLOOD SPECIMENOrdering Facility: [facility] Address: [address] [place] [address] Performed By: #### 5 7021-8 ####[facility] LABORATORYCLIA [id number] [address] Platelet mean volume (Bld) [Entitic vol] 9.8 fL Normal 9.0-12.7 [facility] Comment on above: Order Comment: Speci men Type: BLOOD SPECIMENOrdering Facility: [facility] Address: [address] [place] [address] Performed By: #### 5 7021-8 ####[facility] LABORATORYCLIA [id number] [address] [place] Platelets (Bld) [#/Vol] 175 10*3/uL Normal 150-400 [facility] Comment on above: Order Comment: Speci men Type: BLOOD SPECIMENOrdering Facility: [facility] Address: [address] [place] [address] Performed By: #### 5 7021-8 ####[facility] LABORATORYCLIA [id number] [address] [place] OF [facility] RBC (Bld) [#/Vol] 3.20 10*6/uL Low 4.20-6.00 [facility] Comment on above: Order Comment: Speci men Type: BLOOD SPECIMENOrdering Facility: [facility] Address: [address] [place] [address] Performed By: #### 5 7021-8 ####[facility] LABORATORYCLIA [id number] [address] [place] WBC (Bld) [#/Vol] 10.60 10*3/uL Normal 3.70-11.00 [facility] Comment on above: Order Comment: Speci men Type: BLOOD SPECIMENOrdering Facility: [facility] Address: [address] [place] [address] Performed By: #### 5 7021-8 ####[facility] LABORATORYCLIA [id number] [address] OF [facility] CT BRAIN WO IVCONon 04-04-[address] BRAIN WO IVCON Normal [facility] NURSING PROGon 08-08-2021 NURSING PROG Normal [facility] Prealbumin [Mass/Vol]on Prealbumin Nephelometry [Mass/Vol] 29 mg/dL Normal 17-36 [facility] Comment on above: Order Comment: Speci men Type: BLOOD SPECIMENOrdering Facility: [facility] Address: [address] [place] [address] Performed By: #### 1 4338-8 ####[facility] LABORATORYCLIA [id number] [address] [place] SARS-CoV-2 RNA Resp Ql MEGAN+p robeon 08-08-2021 SARS-CoV-2 (COVID-19) RNA MEGAN+probe Ql (Resp) COVID 19 RESULT: SARS-CoV-2 (Agent of COVID-19) Not Detected by RT-PCR or equivalent method. This test has been authorized by FDA under an Emergency Use Authorization (EUA). Normal [facility] Comment on above: Performed By: #### 9 4500-6 ####[facility] LABORATORYCLIA [id number] [place] [address] [place] ALLIED HEALTHon 08-07-2021 ALLIED HEALTH Normal [facility] Basic metabolic 2000 panelon 08-07-2021 Anion gap [Moles/Vol] 9 mmol/L Normal 9-18 [facility] Comment on above: Order Comment: Speci men Type: BLOOD SPECIMENOrdering Facility: [facility] Address: [address] [place] [address] Performed By: #### 2 4321-2, 2777-1, 23300-2, HFP ####[facility] LABORATORYCLIA [id number] [address] [place] Calcium [Mass/Vol] 9.4 mg/dL Normal 8.5-10.2 [facility] Comment on above: Order Comment: Speci men Type: BLOOD SPECIMENOrdering Facility: [facility] Address: [address] [place] [address] Performed By: #### 2 4321-2, 2777-1, , HFP ####[facility] LABORATORYCLIA [id number] [address] [id number] [place] Chloride [Moles/Vol] 98 mmol/L Normal 97-105 [facility] Comment on above: Order Comment: Speci men Type: BLOOD SPECIMENOrdering Facility: [facility] Address: [address] [place], [place] [address] Performed By: #### 2 4321-2, 2777-, , HFP ####[facility] LABORATORYCLIA [id number] [address] STATES [place] [facility] CO2 [Moles/Vol] 29 mmol/L Normal 22-30 [facility] Comment on above: Order Comment: Speci men Type: BLOOD SPECIMENOrdering Facility: [facility] Address: [address] [place] [address] Performed By: #### 2 4321-2, 277-, , HFP ####[facility]REMENCLIA [id number] [address] [place] [facility] Creatinine [Mass/Vol] 0.67 mg/dL Low 0.73-1.22 [facility] Comment on above: Order Comment: Speci men Type: BLOOD SPECIMENOrdering Facility: [facility] Address: [address] [place] [address] Performed By: #### 2 4321-2, 27711-04, , HFP ####[facility] LABORATORYCLIA [id number] [address] OF [facility] ESTIMATED GLOMERULAR FILTRATION RATE 101 mL/min/1.73m??? Normal >=60 [facility] Comment on above: Order Comment: Speci men Type: BLOOD SPECIMENOrdering Facility: [facility] Address: [address] [place] [address] Result Comment: Luzmaria mated Glomerular Filtration Rate [...] Performed By: #### 2 4321-2, 2776-05, , [facility] ####[facility] LABORATORYCLIA [id number] [place] [address] [place] Glucose [Mass/Vol] 117 mg/dL High 74-99 [facility] Comment on above: Order Comment: Shira feldman Type: BLOOD SPECIMENOrdering Facility: [facility] Address: [address] [phone] Result Comment: The [place] [employer] (ADA) provides guidance for cutoff [...] Standards of Medical Care in Diabetes 2016, [place] [employer]. Diabetes Care. 2016.39(Suppl 1). Performed By: #### 2 4321-2, 2776-05, , [facility] ####[facility] LABORATORYCLIA [id number] [place] [address] [place] Potassium [Moles/Vol] 4.1 mmol/L Normal 3.7-5.1 [facility] Comment on above: Order Comment: Shira feldman Type: BLOOD SPECIMENOrdering Facility: [facility] Address: [address] [place] [address] Performed By: #### 2 4321-2, 2776-05, , [facility] ####[facility] LABORATORYCLIA [id number] [place] [address] [place] Sodium [Moles/Vol] 136 mmol/L Normal 136-144 [facility] Comment on above: Order Comment: Speci men Type: BLOOD SPECIMENOrdering Facility: [facility] Address: [address] [place] [address] Performed By: #### 2 4321-2, 2776-, , [facility] ####[facility] LABORATORYCLIA [id number] [address] STATES [facility] Urea nitrogen [Mass/Vol] 31 mg/dL High 9-24 [facility] Comment on above: Order Comment: Speci men Type: BLOOD SPECIMENOrdering Facility: [facility] Address: [address] [place] [address] Performed By: #### 2 4321-2, 2776-05, , [facility] ####[facility] LABORATORYCLIA [id number] [address] [place] [facility] CBC W Auto Differential pane l (Bld)on 08-07-2021 Basophils (Bld) [#/Vol] 0.03 10*3/uL Normal <0.11 [facility] Comment on above: Order Comment: Speci men Type: BLOOD SPECIMENOrdering Facility: [facility] Address: [address] [place] [address] Performed By: #### 5 7021-8 ####[facility] LABORATORYCLIA [id number] [address] [place] Basophils/100 WBC (Bld) 0.3 % Normal [facility] Comment on above: Order Comment: Speci men Type: BLOOD SPECIMENOrdering Facility: [facility] Address: [address] [place] [address] Performed By: #### 5 7021-8 ####[facility] LABORATORYCLIA [id number] [address] Differential cell count method Nom (Bld) Auto Normal [facility] Comment on above: Order Comment: Speci men Type: BLOOD SPECIMENOrdering Facility: [facility] Address: [address] [place], [place] [address] Performed By: #### 5 7021-8 ####[facility]ORATORYCLIA [id number] [address] [place] Eosinophils (Bld) [#/Vol] 0.16 10*3/uL Normal <0.46 [facility] Comment on above: Order Comment: Speci men Type: BLOOD SPECIMENOrdering Facility: [facility] Address: [address] [place] [address] Performed By: #### 5 7021-8 ####[facility] LABORATORYCLIA [id number] [address] Eosinophils/100 WBC (Bld) 1.6 % Normal [facility] Comment on above: Order Comment: Speci men Type: BLOOD SPECIMENOrdering Facility: [facility] Address: [address] [place] [address] Performed By: #### 5 7021-8 ####[facility] LABORATORYCLIA [id number] [address] Erythrocyte distribution width (RBC) [Ratio] 18.1 % High 11.5-15.0 [facility] Comment on above: Order Comment: Speci men Type: BLOOD SPECIMENOrdering Facility: [facility] Address: [address] [place] [address] Performed By: #### 5 7021-8 ####[facility] LABORATORYCLIA [id number] [address] [place] Hematocrit (Bld) [Volume fraction] 30.6 % Low 39.0-51.0 [facility] Comment on above: Order Comment: Speci men Type: BLOOD SPECIMENOrdering Facility: [facility] Address: [address] [place] [address] Performed By: #### 5 7021-8 ####[facility] LABORATORYCLIA [id number] [address] [place] Hemoglobin (Bld) [Mass/Vol] 9.4 g/dL Low 13.0-17.0 [facility] Comment on above: Order Comment: Speci men Type: BLOOD SPECIMENOrdering Facility: [facility] Address: [address] [place] [address] Performed By: #### 5 7021-8 ####[facility] LABORATORYCLIA [id number] [address] IMMATURE GRAN % 0.4 % Normal [facility] Comment on above: Order Comment: Speci men Type: BLOOD SPECIMENOrdering Facility: [facility] Address: [address] [place] [address] Performed By: #### 5 7021-8 ####[facility] LABORATORYCLIA [id number] [address] IMMATURE GRAN ABS 0.04 k/uL Normal <0.10 [facility] Comment on above: Order Comment: Speci men Type: BLOOD SPECIMENOrdering Facility: [facility] Address: [address] [place] [address] Performed By: #### 5 7021-8 ####[facility] LABORATORYCLIA [id number] [address] Lymphocytes (Bld) [#/Vol] 2.05 10*3/uL Normal 1.00-4.00 [facility] Comment on above: Order Comment: Speci men Type: BLOOD SPECIMENOrdering Facility: [facility] Address: [address] [place] [address] Performed By: #### 5 7021-8 ####[facility] LABORATORYCLIA [id number] [address] Lymphocytes/100 WBC (Bld) 20.2 % Normal [facility] Comment on above: Order Comment: Speci men Type: BLOOD SPECIMENOrdering Facility: [facility] Address: [address] [place] [address] Performed By: #### 5 7021-8 ####[facility] LABORATORYCLIA [id number] [address] AMARILIS MCH (RBC) [Entitic mass] 28.8 pg Normal 26.0-34.0 [facility] Comment on above: Order Comment: Speci men Type: BLOOD SPECIMENOrdering Facility: [facility] Address: [address] [place] [address] Performed By: #### 5 7021-8 ####[facility] LABORATORYCLIA [id number] [address] [place] [facility] MCHC (RBC) [Mass/Vol] 30.7 g/dL Normal 30.5-36.0 [facility] Comment on above: Order Comment: Speci men Type: BLOOD SPECIMENOrdering Facility: [facility] Address: [address] [place] [address] Performed By: #### 5 7021-8 ####[facility] LABORATORYCLIA [id number] [address] [place] MCV (RBC) [Entitic vol] 93.9 fL Normal 80.0-100.0 [facility] Comment on above: Order Comment: Speci men Type: BLOOD SPECIMENOrdering Facility: [facility] Address: [address] [place] [address] Performed By: #### 5 7021-8 ####[facility] LABORATORYCLIA [id number] [address] [place] [facility] Monocytes (Bld) [#/Vol] 0.64 10*3/uL Normal <0.87 [facility] Comment on above: Order Comment: Speci men Type: BLOOD SPECIMENOrdering Facility: [facility] Address: [address] [place] [address] Performed By: #### 5 7021-8 ####[facility] LABORATORYCLIA [id number] [address] Monocytes/100 WBC (Bld) 6.3 % Normal [facility] Comment on above: Order Comment: Speci men Type: BLOOD SPECIMENOrdering Facility: [facility] Address: [address] [place] [address] Performed By: #### 5 7021-8 ####[facility] LABORATORYCLIA [id number] [place] [address] [place] Neutrophils (Bld) [#/Vol] 7.22 10*3/uL Normal 1.45-7.50 [facility] Comment on above: Order Comment: Speci men Type: BLOOD SPECIMENOrdering Facility: [facility] Address: [address] [place] [address] Performed By: #### 5 7021-8 ####[facility] LABORATORYCLIA [id number] [address] [place] Neutrophils/100 WBC (Bld) 71.2 % Normal [facility] Comment on above: Order Comment: Speci men Type: BLOOD SPECIMENOrdering Facility: [facility] Address: [address] [place] [address] Performed By: #### 5 7021-8 ####[facility] LABORATORYCLIA [id number] [address] [place] Nucleated RBC (Bld) [#/Vol] 10*3/uL Normal <0.01 [facility] Comment on above: Order Comment: Speci men Type: BLOOD SPECIMENOrdering Facility: [facility] Address: [address] [place] [address] Performed By: #### 5 7021-8 ####[facility] LABORATORYCLIA [id number] [address] [place] Nucleated RBC/100 WBC (Bld) [Ratio] 0.0 /100 WBC Normal [facility] Comment on above: Order Comment: Speci men Type: BLOOD SPECIMENOrdering Facility: [facility] Address: [address] [place] [address] Performed By: #### 5 7021-8 ####[facility] LABORATORYCLIA [id number] [address] [place] Platelet mean volume (Bld) [Entitic vol] 9.9 fL Normal 9.0-12.7 [facility] Comment on above: Order Comment: Speci men Type: BLOOD SPECIMENOrdering Facility: [facility] Address: [address] [place] [address] Performed By: #### 5 7021-8 ####[facility] LABORATORYCLIA [id number] [address] Platelets (Bld) [#/Vol] 227 10*3/uL Normal 150-400 [facility] Comment on above: Order Comment: Speci men Type: BLOOD SPECIMENOrdering Facility: [facility] Address: [address] [place] [address] Performed By: #### 5 7021-8 ####[facility] LABORATORYCLIA [id number] [address] [facility] RBC (Bld) [#/Vol] 3.26 10*6/uL Low 4.20-6.00 [facility] Comment on above: Order Comment: Speci men Type: BLOOD SPECIMENOrdering Facility: [facility] Address: [address] [place] [address] Performed By: #### 5 7021-8 ####[facility] LABORATORYCLIA [id number] [address] WBC (Bld) [#/Vol] 10.14 10*3/uL Normal 3.70-11.00 [facility] Comment on above: Order Comment: Speci men Type: BLOOD SPECIMENOrdering Facility: [facility] Address: [address] [place] [address] Performed By: #### 5 7021-8 ####[facility]ORATORYCLIA [id number] [address] BRAIN WO IVCONon 08-08-19 CT BRAIN WO IVCON Normal [facility] HEPATIC FUNCTION PNLon 08-07 Albumin [Mass/Vol] 3.6 g/dL Low 3.9-4.9 [facility] Comment on above: Order Comment: Speci men Type: BLOOD SPECIMENOrdering Facility: [facility] Address: [address] [place] [address] Performed By: #### 2 4321-2, 2777-1, , HFP ####[facility] LABORATORYCLIA [id number] [address] ALP [Catalytic activity/Vol] 124 U/L High 38-113 [facility] Comment on above: Order Comment: Speci men Type: BLOOD SPECIMENOrdering Facility: [facility] Address: [address] [place], [place] [address] Performed By: #### 2 4321-2, 2776-, , HFP ####[facility] LABORATORYCLIA [id number] [address] ALT With P-5'-P [Catalytic activity/Vol] 29 U/L Normal 10-54 [facility] Comment on above: Order Comment: Speci men Type: BLOOD SPECIMENOrdering Facility: [facility] Address: [address] [place] [address] Performed By: #### 2 4321-2, 2776-05, , HFP ####[facility]ORATORYCLIA [id number] [address] AST With P-5'-P [Catalytic activity/Vol] 18 U/L Normal 14-40 [facility] Comment on above: Order Comment: Speci men Type: BLOOD SPECIMENOrdering Facility: [facility] Address: [address] [place], [place] [address] Performed By: #### 2 4321-2, 2776-05, , HFP ####[facility]ORATORYCLIA [id number] [address] Bilirubin [Mass/Vol] 0.3 mg/dL Normal 0.2-1.3 [facility] Comment on above: Order Comment: Speci men Type: BLOOD SPECIMENOrdering Facility: [facility] Address: [address] [place], [place] [address] Performed By: #### 2 4321-2, 2776-, , HFP ####[facility] LABORATORYCLIA [id number] [place] [address] [place] Bilirubin.conjugated [Mass/Vol] mg/dL Normal <0.2 [facility] Comment on above: Order Comment: Speci men Type: BLOOD SPECIMENOrdering Facility: [facility] Address: [address] [place] [address] Performed By: #### 2 4321-2, 2776-05, , HFP ####[facility] LABORATORYCLIA [id number] [place] [address] [place] Protein [Mass/Vol] 6.4 g/dL Normal 6.3-8.0 [facility] Comment on above: Order Comment: Speci men Type: BLOOD SPECIMENOrdering Facility: [facility] Address: [address] [place] [address] Performed By: #### 2 4321-2, 27711-04, , HFP ####[facility]ORATORYCLIA [id number] [address] [place] Magnesium SerPl-mCncon 08-07 Magnesium [Mass/Vol] 2.3 mg/dL Normal 1.7-2.3 [facility] Comment on above: Order Comment: Speci men Type: BLOOD SPECIMENOrdering Facility: [facility] Address: [address] [place] [address] Performed By: #### 2 4321-2, 27711-04, , HFP ####[facility]ORATORYCLIA [id number] [place] [address] [place] NURSING PROGon 08-07-2021 NURSING PROG Normal [facility] Phosphate SerPl-mCncon 08-07 Phosphate [Mass/Vol] 3.5 mg/dL Normal 2.7-4.8 [facility] Comment on above: Order Comment: Speci men Type: BLOOD SPECIMENOrdering Facility: [facility] Address: [address] [place] [address] Performed By: #### 2 4321-2, 2776-, , HFP ####[facility]ORATORYCLIA [id number] [place] [address] [place] ANES POSTPROC EVALon 022 ANES POSTPROC EVAL Normal [facility] Basic metabolic 2000 panelon 08-06-2021 Anion gap [Moles/Vol] 11 mmol/L Normal 9-18 [facility] Comment on above: Order Comment: Speci men Type: BLOOD SPECIMENOrdering Facility: [facility] Address: [address] [place], [place] [address] Performed By: #### 2 4321-2, 2776-05, ####[facility] LABORATORYCLIA [id number] [place] [address] [place] Calcium [Mass/Vol] 8.2 mg/dL Low 8.5-10.2 [facility] Comment on above: Order Comment: Speci men Type: BLOOD SPECIMENOrdering Facility: [facility] Address: [address] [place], [place] [address] Performed By: #### 2 4321-2, 2776-05, ####[facility]ORATORYCLIA [id number] [place] [address] [place] Chloride [Moles/Vol] 100 mmol/L Normal 97-105 [facility] Comment on above: Order Comment: Speci men Type: BLOOD SPECIMENOrdering Facility: [facility] Address: [address] Performed By: #### 2 4321-2, 2776-05, ####[facility]ORATORYCLIA [id number] [place] [address] [place] CO2 [Moles/Vol] 23 mmol/L Normal 22-30 [facility] Comment on above: Order Comment: Speci men Type: BLOOD SPECIMENOrdering Facility: [facility] Address: [address] Performed By: #### 2 4321-2, 2777-1, ####[facility]REM[facility]CLIA [id number] [place] [address] [place] [facility] Creatinine [Mass/Vol] 0.55 mg/dL Low 0.73-1.22 [facility] Comment on above: Order Comment: Shira feldman Type: BLOOD SPECIMENOrdering Facility: [facility] Address: [address] [place], [place] [address] Performed By: #### 2 4321-2, 277-, ####[facility]REM[facility]CLIA [id number] [place] [address] [facility] ESTIMATED GLOMERULAR FILTRATION RATE 107 mL/min/1.73m??? Normal >=60 [facility] Comment on above: Order Comment: Shira feldman Type: BLOOD SPECIMENOrdering Facility: [facility] Address: [address] [place], [place] [address] Result Comment: Luzmaria mated Glomerular Filtration Rate [...] GFR. Performed By: #### 2 4321-2, 2777-, ####[facility] LABORATORYCLIA [id number] [place] [id number] [place] Glucose [Mass/Vol] 275 mg/dL High 74-99 [facility] Comment on above: Order Comment: Shira francia Type: BLOOD SPECIMENOrdering Facility: [facility] Address: [address] [phone] Result Comment: The [place] Diabetes [employer] (ADA) provides guidance for cutoff [...] Standards of Medical Care in Diabetes 2016, [place] [employer]. Diabetes Care. 2016.39(Suppl 1). Performed By: #### 2 4321-2, 277-, ####[facility]ORATORYCLIA [id number] [address] [place] [facility] Potassium [Moles/Vol] 3.6 mmol/L Low 3.7-5.1 [facility] Comment on above: Order Comment: Shira feldman Type: BLOOD SPECIMENOrdering Facility: [facility] Address: [address] [place] [address] Performed By: #### 2 4321-2, 2776-05, ####[facility]GIA [id number] [address] [place] [facility] Sodium [Moles/Vol] 134 mmol/L Low 136-144 [facility] Comment on above: Order Comment: Shira feldman Type: BLOOD SPECIMENOrdering Facility: [facility] Address: [address] [place] [address] Performed By: #### 2 4321-2, 2776-05, ####[facility]CLIA [id number] [address] [place] [facility] Urea nitrogen [Mass/Vol] 29 mg/dL High 9-24 [facility] Comment on above: Order Comment: Shira feldman Type: BLOOD SPECIMENOrdering Facility: [facility] Address: [address] [place] [address] Performed By: #### 2 4321-2, 2776-05, ####[facility]ORATORYCLIA [id number] [place] [address] [place] CBC W Auto Differential pane l (Bld)on 08-06-2021 Basophils (Bld) [#/Vol] 0.03 10*3/uL Normal <0.11 [facility] Comment on above: Order Comment: Speci men Type: BLOOD SPECIMENOrdering Facility: [facility] Address: [address] [place] [address] Performed By: #### 5 7021-8 ####[facility]ORATORYCLIA [id number] [address] [place] Basophils/100 WBC (Bld) 0.3 % Normal [facility] Comment on above: Order Comment: Speci men Type: BLOOD SPECIMENOrdering Facility: [facility] Address: [address] [place] [address] Performed By: #### 5 7021-8 ####[facility]ATORYCLIA [id number] [address] [place] Differential cell count method Nom (Bld) Auto Normal [facility] Comment on above: Order Comment: Speci men Type: BLOOD SPECIMENOrdering Facility: [facility] Address: [address] [place] [address] Performed By: #### 5 7021-8 ####[facility]ORATORYCLIA [id number] [address] [place] Eosinophils (Bld) [#/Vol] 0.18 10*3/uL Normal <0.46 [facility] Comment on above: Order Comment: Speci men Type: BLOOD SPECIMENOrdering Facility: [facility] Address: [address] [place] [address] Performed By: #### 5 7021-8 ####[facility]ATORYCLIA [id number] [address] [place] Eosinophils/100 WBC (Bld) 1.6 % Normal [facility] Comment on above: Order Comment: Speci men Type: BLOOD SPECIMENOrdering Facility: [facility] Address: [address] [place] [address] Performed By: #### 5 7021-8 ####[facility]ORATORYCLIA [id number] [address] Erythrocyte distribution width (RBC) [Ratio] 17.9 % High 11.5-15.0 [facility] Comment on above: Order Comment: Speci men Type: BLOOD SPECIMENOrdering Facility: [facility] Address: [address] [place] [address] Performed By: #### 5 7021-8 ####[facility] LABORATORYCLIA [id number] [address] OF [facility] Hematocrit (Bld) [Volume fraction] 27.6 % Low 39.0-51.0 [facility] Comment on above: Order Comment: Speci men Type: BLOOD SPECIMENOrdering Facility: [facility] Address: [address] [place] [address] Performed By: #### 5 7021-8 ####[facility] LABORATORYCLIA [id number] [address] [place] [facility] Hemoglobin (Bld) [Mass/Vol] 8.5 g/dL Low 13.0-17.0 [facility] Comment on above: Order Comment: Speci men Type: BLOOD SPECIMENOrdering Facility: [facility] Address: [address] [place] [address] Performed By: #### 5 7021-8 ####[facility] LABORATORYCLIA [id number] [address] OF [facility] IMMATURE GRAN % 0.6 % Normal [facility] Comment on above: Order Comment: Speci men Type: BLOOD SPECIMENOrdering Facility: [facility] Address: [address] [place] [address] Performed By: #### 5 7021-8 ####[facility] LABORATORYCLIA [id number] [address] IMMATURE GRAN ABS 0.07 k/uL Normal <0.10 [facility] Comment on above: Order Comment: Speci men Type: BLOOD SPECIMENOrdering Facility: [facility] Address: [address] [place] [address] Performed By: #### 5 7021-8 ####[facility]ORATORYCLIA [id number] [address] [place] Lymphocytes (Bld) [#/Vol] 1.81 10*3/uL Normal 1.00-4.00 [facility] Comment on above: Order Comment: Speci men Type: BLOOD SPECIMENOrdering Facility: [facility] Address: [address] [place] [address] Performed By: #### 5 7021-8 ####[facility]ORATORYCLIA [id number] [address] Lymphocytes/100 WBC (Bld) 15.7 % Normal [facility] Comment on above: Order Comment: Speci men Type: BLOOD SPECIMENOrdering Facility: [facility] Address: [address] [place] [address] Performed By: #### 5 7021-8 ####[facility]ORATORYCLIA [id number] [address] [place] [facility] MCH (RBC) [Entitic mass] 28.6 pg Normal 26.0-34.0 [facility] Comment on above: Order Comment: Speci men Type: BLOOD SPECIMENOrdering Facility: [facility] Address: [address] [place] [address] Performed By: #### 5 7021-8 ####[facility]ORATORYCLIA [id number] [address] [place] MCHC (RBC) [Mass/Vol] 30.8 g/dL Normal 30.5-36.0 [facility] Comment on above: Order Comment: Speci men Type: BLOOD SPECIMENOrdering Facility: [facility] Address: [address] [place] [address] Performed By: #### 5 7021-8 ####[facility]ORATORYCLIA [id number] [address] [place] MCV (RBC) [Entitic vol] 92.9 fL Normal 80.0-100.0 [facility] Comment on above: Order Comment: Speci men Type: BLOOD SPECIMENOrdering Facility: [facility] Address: [address] [place] [address] Performed By: #### 5 7021-8 ####[facility] LABORATORYCLIA [id number] [address] [place] Monocytes (Bld) [#/Vol] 0.63 10*3/uL Normal <0.87 [facility] Comment on above: Order Comment: Speci men Type: BLOOD SPECIMENOrdering Facility: [facility] Address: [address] [place] [address] Performed By: #### 5 7021-8 ####[facility]ORATORYCLIA [id number] [address] [place] Monocytes/100 WBC (Bld) 5.5 % Normal [facility] Comment on above: Order Comment: Speci men Type: BLOOD SPECIMENOrdering Facility: [facility] Address: [address] [place] [address] Performed By: #### 5 7021-8 ####[facility]ORATORYCLIA [id number] [place] [address] [place] Neutrophils (Bld) [#/Vol] 8.78 10*3/uL High 1.45-7.50 [facility] Comment on above: Order Comment: Speci men Type: BLOOD SPECIMENOrdering Facility: [facility] Address: [address] [place] [address] Performed By: #### 5 7021-8 ####[facility]ORATORYCLIA [id number] [address] [place] Neutrophils/100 WBC (Bld) 76.3 % Normal [facility] Comment on above: Order Comment: Speci men Type: BLOOD SPECIMENOrdering Facility: [facility] Address: [address] [place] [address] Performed By: #### 5 7021-8 ####[facility]ORATORYCLIA [id number] [place] [address] [place] Nucleated RBC (Bld) [#/Vol] 10*3/uL Normal <0.01 [facility] Comment on above: Order Comment: Speci men Type: BLOOD SPECIMENOrdering Facility: [facility] Address: [address] [place] [address] Performed By: #### 5 7021-8 ####[facility]ORATORYCLIA [id number] [address] [place] Nucleated RBC/100 WBC (Bld) [Ratio] 0.0 /100 WBC Normal [facility] Comment on above: Order Comment: Speci men Type: BLOOD SPECIMENOrdering Facility: [facility] Address: [address] [place] [address] Performed By: #### 5 7021-8 ####[facility]ORATORYCLIA [id number] [place] [address] [place] Platelet mean volume (Bld) [Entitic vol] 9.9 fL Normal 9.0-12.7 [facility] Comment on above: Order Comment: Speci men Type: BLOOD SPECIMENOrdering Facility: [facility] Address: [address] [place] [address] Performed By: #### 5 7021-8 ####[facility]ORATORYCLIA [id number] [address] [place] Platelets (Bld) [#/Vol] 230 10*3/uL Normal 150-400 [facility] Comment on above: Order Comment: Speci men Type: BLOOD SPECIMENOrdering Facility: [facility] Address: [address] [place], [place] [address] Performed By: #### 5 7021-8 ####[facility]ORATORYCLIA [id number] [place] [address] [place] RBC (Bld) [#/Vol] 2.97 10*6/uL Low 4.20-6.00 [facility] Comment on above: Order Comment: Speci men Type: BLOOD SPECIMENOrdering Facility: [facility] Address: [address] [place] [address] Performed By: #### 5 7021-8 ####[facility]ORATORYCLIA [id number] [address] [place] WBC (Bld) [#/Vol] 11.50 10*3/uL High 3.70-11.00 [facility] Comment on above: Order Comment: Speci men Type: BLOOD SPECIMENOrdering Facility: [facility] Address: [address] [place] [address] Performed By: #### 5 7021-8 ####[facility]ORATORYCLIA [id number] [address] [place] CONSULT PROGon 08-06-2021 CONSULT PROG Normal [facility] Magnesium SerPl-mCncon 08-06 Magnesium [Mass/Vol] 1.9 mg/dL Normal 1.7-2.3 [facility] Comment on above: Order Comment: Speci men Type: BLOOD SPECIMENOrdering Facility: [facility] Address: [address] [place] [address] Performed By: #### 2 4321-2, 2777-1, 45902-9 ####[facility]ORATORYCLIA [id number] [address] NURSING PROGon 08-06-2021 NURSING PROG Normal [facility] OPERATIVE NOon 08-06-2021 OPERATIVE NO Normal [facility] Phosphate SerPl-mCncon 08-06 Phosphate [Mass/Vol] 4.2 mg/dL Normal 2.7-4.8 [facility] Comment on above: Order Comment: Speci men Type: BLOOD SPECIMENOrdering Facility: [facility] Address: [address] [place] [address] Performed By: #### 2 4321-2, 2777-1, 93402-0 ####[facility]ORATORYCLIA [id number] [address] [place] ALLIED HEALTHon 08-05-2021 ALLIED HEALTH Normal [facility] ALLIED HEALTH Normal [facility] ANES PRE-OPon 08-05-2021 ANES PRE-OP Normal [facility] BRIEF OP NOTon 08-05-2021 BRIEF OP NOT Normal [facility] Bacteria Spec Resp Culton Bacteria identified Respiratory culture Nom (Unsp spec) CULTURE, RESPIRATORY: Few Normal respiratory chris present ORGANISM ID: 1 Few Proteus species Insignificant colony count. No further workup. GRAM STAIN: No organisms seen Few Polymorphonuclear leukocytes Few Epithelial cells Abnormal [facility] Comment on above: Performed By: #### 3 2355-0 ####[facility]ATORYCLIA [id number] [place] [address] [place] Bacteria Ur Culton 2 Bacteria identified Cx Nom (U) CULTURE, URINE: No growth (<1,000 CFU/ml) Normal [facility] Comment on above: Performed By: #### 6 30-4 ####[facility]ATORYCLIA [id number] [place] [address] [place] Basic metabolic 2000 panelon 08-05-2021 Anion gap [Moles/Vol] 7 mmol/L Low 9-18 [facility] Comment on above: Order Comment: Speci men Type: BLOOD SPECIMENOrdering Facility: [facility] Address: [address] [place] [address] Performed By: #### 2 4321-2 ####[facility] LABORATORYCLIA [id number] [place] [address] [place] Calcium [Mass/Vol] 9.5 mg/dL Normal 8.5-10.2 [facility] Comment on above: Order Comment: Speci men Type: BLOOD SPECIMENOrdering Facility: [facility] Address: [address] [address] Performed By: #### 2 4321-2 ####[facility] LABORATORYCLIA [id number] [place] [address] [place] Chloride [Moles/Vol] 97 mmol/L Normal 97-105 [facility] Comment on above: Order Comment: Speci men Type: BLOOD SPECIMENOrdering Facility: [facility] Address: [address] [place] [address] Performed By: #### 2 4321-2 ####[facility] LABORATORYCLIA [id number] [address] [place] CO2 [Moles/Vol] 30 mmol/L Normal 22-30 [facility] Comment on above: Order Comment: Speci men Type: BLOOD SPECIMENOrdering Facility: [facility] Address: [address] [place] [address] Performed By: #### 2 4321-2 ####[facility] LABORATORYCLIA [id number] [address] [place] Creatinine [Mass/Vol] 0.61 mg/dL Low 0.73-1.22 [facility] Comment on above: Order Comment: Speci men Type: BLOOD SPECIMENOrdering Facility: [facility] Address: [address] [place] [address] Performed By: #### 2 4321-2 ####[facility] [id number] [address] ESTIMATED GLOMERULAR FILTRATION RATE 104 mL/min/1.73m??? Normal >=60 [facility] Comment on above: Order Comment: Speci men Type: BLOOD SPECIMENOrdering Facility: [facility] Address: [address] [place] [address] Result Comment: Luzmaria mated Glomerular Filtration Rate [...] actual GFR. Performed By: #### 2 4321-2 ####[facility]ORATORYCLIA [id number] [address] [place] Glucose [Mass/Vol] 124 mg/dL High 74-99 [facility] Comment on above: Order Comment: Speci men Type: BLOOD SPECIMENOrdering Facility: [facility] Address: [address] [address] Result Comment: The [place] [employer] (ADA) provides guidance for cutoff [...] Standards of Medical Care in Diabetes 2016, [place] [employer]. Diabetes Care. 2016.39(Suppl 1). Performed By: #### 2 4321-2 ####[facility] LABORATORYCLIA [id number] [place] [address] [place] Potassium [Moles/Vol] 4.9 mmol/L Normal 3.7-5.1 [facility] Comment on above: Order Comment: Speci men Type: BLOOD SPECIMENOrdering Facility: [facility] Address: [address] [address] Performed By: #### 2 4321-2 ####[facility]ORATORYCLIA [id number] [place] [address] [place] Sodium [Moles/Vol] 134 mmol/L Low 136-144 [facility] Comment on above: Order Comment: Speci men Type: BLOOD SPECIMENOrdering Facility: [facility] Address: [address] [address] Performed By: #### 2 4321-2 ####[facility]ORATORYCLIA [id number] [place] [address] [place] Urea nitrogen [Mass/Vol] 40 mg/dL High 9-24 [facility] Comment on above: Order Comment: Speci men Type: BLOOD SPECIMENOrdering Facility: [facility] Address: [address] [address] Performed By: #### 2 4321-2 ####[facility]ORATORYCLIA [id number] [place] [address] [place] CBC W Auto Differential pane l (Bld)on 08-05-2021 Basophils (Bld) [#/Vol] 0.04 10*3/uL Normal <0.11 [facility] Comment on above: Order Comment: Speci men Type: BLOOD SPECIMENOrdering Facility: [facility] Address: [address] [place] [address] Performed By: #### 5 7021-8 ####[facility] LABORATORYCLIA [id number] [address] Basophils/100 WBC (Bld) 0.3 % Normal [facility] Comment on above: Order Comment: Speci men Type: BLOOD SPECIMENOrdering Facility: [facility] Address: [address] [place] [address] Performed By: #### 5 7021-8 ####[facility] LABORATORYCLIA [id number] [address] Differential cell count method Nom (Bld) Auto Normal [facility] Comment on above: Order Comment: Speci men Type: BLOOD SPECIMENOrdering Facility: [facility] Address: [address] [place] [address] Performed By: #### 5 7021-8 ####[facility] LABORATORYCLIA [id number] [address] [place] Eosinophils (Bld) [#/Vol] 0.42 10*3/uL Normal <0.46 [facility] Comment on above: Order Comment: Speci men Type: BLOOD SPECIMENOrdering Facility: [facility] Address: [address] [place] [address] Performed By: #### 5 7021-8 ####[facility]ORATORYCLIA [id number] [address] Eosinophils/100 WBC (Bld) 3.6 % Normal [facility] Comment on above: Order Comment: Speci men Type: BLOOD SPECIMENOrdering Facility: [facility] Address: [facility] [place] [address] Performed By: #### 5 7021-8 ####[facility]ORATORYCLIA [id number] [address] Erythrocyte distribution width (RBC) [Ratio] 17.9 % High 11.5-15.0 [facility] Comment on above: Order Comment: Speci men Type: BLOOD SPECIMENOrdering Facility: [facility] Address: [address] [place] [address] Performed By: #### 5 7021-8 ####[facility]ORATORYCLIA [id number] [address] Hematocrit (Bld) [Volume fraction] 30.8 % Low 39.0-51.0 [facility] Comment on above: Order Comment: Speci men Type: BLOOD SPECIMENOrdering Facility: [facility] Address: [address] [place] [address] Performed By: #### 5 7021-8 ####[facility] LABORATORYCLIA [id number] [address] [place] Hemoglobin (Bld) [Mass/Vol] 9.6 g/dL Low 13.0-17.0 [facility] Comment on above: Order Comment: Speci men Type: BLOOD SPECIMENOrdering Facility: [facility] Address: [address] [place] [address] Performed By: #### 5 7021-8 ####[facility]ORATORYCLIA [id number] [address] IMMATURE GRAN % 0.5 % Normal [facility] Comment on above: Order Comment: Speci men Type: BLOOD SPECIMENOrdering Facility: [facility] Address: [address] [place] [address] Performed By: #### 5 7021-8 ####[facility]ORATORYCLIA [id number] [address] IMMATURE GRAN ABS 0.06 k/uL Normal <0.10 [facility] Comment on above: Order Comment: Speci men Type: BLOOD SPECIMENOrdering Facility: [facility] Address: [address] [place] [address] Performed By: #### 5 7021-8 ####[facility]ORATORYCLIA [id number] [address] [place] Lymphocytes (Bld) [#/Vol] 2.17 10*3/uL Normal 1.00-4.00 [facility] Comment on above: Order Comment: Speci men Type: BLOOD SPECIMENOrdering Facility: [facility] Address: [address] [place] [address] Performed By: #### 5 7021-8 ####[facility]ORATORYCLIA [id number] [address] Lymphocytes/100 WBC (Bld) 18.7 % Normal [facility] Comment on above: Order Comment: Speci men Type: BLOOD SPECIMENOrdering Facility: [facility] Address: [address] [place] [address] Performed By: #### 5 7021-8 ####[facility]ORATORYCLIA [id number] [address] [place] MCH (RBC) [Entitic mass] 28.9 pg Normal 26.0-34.0 [facility] Comment on above: Order Comment: Speci men Type: BLOOD SPECIMENOrdering Facility: [facility] Address: [address] [place] [address] Performed By: #### 5 7021-8 ####[facility]ORATORYCLIA [id number] [address] [place] MCHC (RBC) [Mass/Vol] 31.2 g/dL Normal 30.5-36.0 [facility] Comment on above: Order Comment: Speci men Type: BLOOD SPECIMENOrdering Facility: [facility] Address: [address] [place] [address] Performed By: #### 5 7021-8 ####[facility]ORATORYCLIA [id number] [place] [address] [place] MCV (RBC) [Entitic vol] 92.8 fL Normal 80.0-100.0 [facility] Comment on above: Order Comment: Speci men Type: BLOOD SPECIMENOrdering Facility: [facility] Address: [address] [place] [address] Performed By: #### 5 7021-8 ####[facility]ORATORYCLIA [id number] [place] [address] [place] Monocytes (Bld) [#/Vol] 0.71 10*3/uL Normal <0.87 [facility] Comment on above: Order Comment: Speci men Type: BLOOD SPECIMENOrdering Facility: [facility] Address: [address] [place] [address] Performed By: #### 5 7021-8 ####[facility]ORATORYCLIA [id number] [address] [place] Monocytes/100 WBC (Bld) 6.1 % Normal [facility] Comment on above: Order Comment: Speci men Type: BLOOD SPECIMENOrdering Facility: [facility] Address: [address] [place] [address] Performed By: #### 5 7021-8 ####[facility]ORATORYCLIA [id number] [place] [address] [place] Neutrophils (Bld) [#/Vol] 8.19 10*3/uL High 1.45-7.50 [facility] Comment on above: Order Comment: Speci men Type: BLOOD SPECIMENOrdering Facility: [facility] Address: [address] [place] [address] Performed By: #### 5 7021-8 ####[facility]ORATORYCLIA [id number] [address] [place] Neutrophils/100 WBC (Bld) 70.8 % Normal [facility] Comment on above: Order Comment: Speci men Type: BLOOD SPECIMENOrdering Facility: [facility] Address: [address] [place] [address] Performed By: #### 5 7021-8 ####[facility]ORATORYCLIA [id number] [address] Nucleated RBC (Bld) [#/Vol] 10*3/uL Normal <0.01 [facility] Comment on above: Order Comment: Speci men Type: BLOOD SPECIMENOrdering Facility: [facility] Address: [address] [place] [address] Performed By: #### 5 7021-8 ####[facility]ORATORYCLIA [id number] [address] OF [facility] Nucleated RBC/100 WBC (Bld) [Ratio] 0.0 /100 WBC Normal [facility] Comment on above: Order Comment: Speci men Type: BLOOD SPECIMENOrdering Facility: [facility] Address: [address] [place] [address] Performed By: #### 5 7021-8 ####[facility]ORATORYCLIA [id number] [address] OF [facility] Platelet mean volume (Bld) [Entitic vol] 9.6 fL Normal 9.0-12.7 [facility] Comment on above: Order Comment: Speci men Type: BLOOD SPECIMENOrdering Facility: [facility] Address: [address] [place] [address] Performed By: #### 5 7021-8 ####[facility]ORATORYCLIA [id number] [address] [place] Platelets (Bld) [#/Vol] 339 10*3/uL Normal 150-400 [facility] Comment on above: Order Comment: Speci men Type: BLOOD SPECIMENOrdering Facility: [facility] Address: [address] [place] [address] Performed By: #### 5 7021-8 ####[facility]ORATORYCLIA [id number] [address] [place] RBC (Bld) [#/Vol] 3.32 10*6/uL Low 4.20-6.00 [facility] Comment on above: Order Comment: Speci men Type: BLOOD SPECIMENOrdering Facility: [facility] Address: [address] [place] [address] Performed By: #### 5 7021-8 ####[facility]ORATORYCLIA [id number] [address] [place] WBC (Bld) [#/Vol] 11.59 10*3/uL High 3.70-11.00 [facility] Comment on above: Order Comment: Speci men Type: BLOOD SPECIMENOrdering Facility: [facility] Address: [address] [place] [address] Performed By: #### 5 7021-8 ####[facility]ORATORYCLIA [id number] [address] [place] CT BRAIN WO IVCONon 08-06-[address] BRAIN WO IVCON Normal [facility] Magnesium SerPl-mCncon 08-05 Magnesium [Mass/Vol] 2.2 mg/dL Normal 1.7-2.3 [facility] Comment on above: Order Comment: Speci men Type: BLOOD SPECIMENOrdering Facility: [facility] Address: [address] [place] [address] Performed By: #### 1 9123-9, 2777-1 ####[facility]ORATORYCLIA [id number] [address] [place] NURSING PROGon 08-05-2021 NURSING PROG Normal [facility] NURSING PROG Normal [facility] NUTRITIONon 08-05-2021 NUTRITION Normal [facility] OPERATIVE NOon 08-05-2021 OPERATIVE NO Normal [facility] Phosphate SerPl-mCncon 08-05 Phosphate [Mass/Vol] 4.6 mg/dL Normal 2.7-4.8 [facility] Comment on above: Order Comment: Speci men Type: BLOOD SPECIMENOrdering Facility: [facility] Address: [address] [place] [address] Performed By: #### 1 9123-9, 2777-1 ####[facility]ORATORYCLIA [id number] [address] OF [facility] THERAPY NTon 08-05-2021 THERAPY NT Normal [facility] THERAPY NT Normal [facility] Urinalysis complete panel (U )on 08-05-2021 Bilirubin Ql (U) Negative Normal Negative [facility] Comment on above: Order Comment: Speci men Type: URINE SPECIMENOrdering Facility: [facility] Address: [address] [place] [address] Performed By: #### 2 4356-8 ####[facility]ORATORYCLIA [id number] [address] Clarity (Unsp spec) Clear Normal Clear [facility] Comment on above: Order Comment: Speci men Type: URINE SPECIMENOrdering Facility: [facility] Address: [address] [place] [address] Performed By: #### 2 4356-8 ####[facility]ORATORYCLIA [id number] [address] Color (U) Light Yellow Normal yellow [facility] Comment on above: Order Comment: Speci men Type: URINE SPECIMENOrdering Facility: [facility] Address: [address] [place] [address] Performed By: #### 2 4356-8 ####[facility]ORATORYCLIA [id number] [address] Epithelial cells LM.HPF (Urine sed) [#/Area] Few Abnormal None Seen [facility] Comment on above: Order Comment: Speci men Type: URINE SPECIMENOrdering Facility: [facility] Address: [address] [place] [address] Performed By: #### 2 4356-8 ####[facility]ORATORYCLIA [id number] [address] [place] Glucose Test strip (U) [Mass/Vol] Negative Normal Negative [facility] Comment on above: Order Comment: Speci men Type: URINE SPECIMENOrdering Facility: [facility] Address: [address] [place] [address] Performed By: #### 2 4356-8 ####[facility]ORATORYCLIA [id number] [address] [place] [facility] Hemoglobin Ql (U) Negative Normal Negative [facility] Comment on above: Order Comment: Speci men Type: URINE SPECIMENOrdering Facility: [facility] Address: [address] [place] [address] Performed By: #### 2 4356-8 ####[facility] LABORATORYCLIA [id number] [address] Hyaline casts (Urine sed) [#/Area] 1-3 /LPF Abnormal 0 /LPF [facility] Comment on above: Order Comment: Speci men Type: URINE SPECIMENOrdering Facility: [facility] Address: [address] [place] [address] Performed By: #### 2 4356-8 ####[facility]ORATORYCLIA [id number] [address] [place] Ketones Ql (U) Negative Normal Negative [facility] Comment on above: Order Comment: Speci men Type: URINE SPECIMENOrdering Facility: [facility] Address: [address] [place] [address] Performed By: #### 2 4356-8 ####[facility]ORATORYCLIA [id number] [address] [place] [facility] Leukocyte esterase Test strip Ql (U) Negative Normal Negative [facility] Comment on above: Order Comment: Speci men Type: URINE SPECIMENOrdering Facility: [facility] Address: [address] [place] [address] Performed By: #### 2 4356-8 ####[facility]ORATORYCLIA [id number] [place] [address] [place] Nitrite Ql (U) Negative Normal Negative [facility] Comment on above: Order Comment: Speci men Type: URINE SPECIMENOrdering Facility: [facility] Address: [address] [place] [address] Performed By: #### 2 4356-8 ####[facility]ORATORYCLIA [id number] [address] pH (U) 6.0 [pH] Normal 5.0-8.0 [facility] Comment on above: Order Comment: Speci men Type: URINE SPECIMENOrdering Facility: [facility] Address: [address] [place] [address] Performed By: #### 2 4356-8 ####[facility]ORATORYCLIA [id number] [address] Protein (U) [Mass/Vol] Negative Normal Negative [facility] Comment on above: Order Comment: Speci men Type: URINE SPECIMENOrdering Facility: [facility] Address: [address] [place] [address] Performed By: #### 2 4356-8 ####[facility]ORATORYCLIA [id number] [address] [place] [facility] RBC LM.HPF (Urine sed) [#/Area] 0-3 /HPF Normal 0-3 /HPF [facility] Comment on above: Order Comment: Speci men Type: URINE SPECIMENOrdering Facility: [facility] Address: [address] [place] [address] Performed By: #### 2 4356-8 ####[facility]ORATORYCLIA [id number] [address] Specific gravity (U) [Rel density] 1.015 Normal 1.005-1.030 [facility] Comment on above: Order Comment: Speci men Type: URINE SPECIMENOrdering Facility: [facility] Address: [address] [place] [address] Performed By: #### 2 4356-8 ####[facility]ORATORYCLIA [id number] [address] Urobilinogen Ql (U) Normal Normal Negative [facility] Comment on above: Order Comment: Speci men Type: URINE SPECIMENOrdering Facility: [facility] Address: [address] [place] [address] Performed By: #### 2 4356-8 ####[facility]ORATORYCLIA [id number] [address] WBC LM.HPF (Urine sed) [#/Area] 0-5 /HPF Normal 0-5 /HPF [facility] Comment on above: Order Comment: Speci men Type: URINE SPECIMENOrdering Facility: [facility] Address: [address] [place] [address] Performed By: #### 2 4356-8 ####[facility]ORATORYCLIA [id number] [address] XR ABDOMEN 1V SUPINEon 08-05 XR ABDOMEN 1V SUPINE Normal [facility] XR CHEST 1V FRONTALon 2021 XR CHEST 1V FRONTAL Normal [facility] XR CHEST 1V FRONTAL Normal [facility] XR NECK SOFT TISSUE 2V AP/LA Ton 08-05-2021 XR NECK SOFT TISSUE 2V AP/LAT Normal [facility] XR SKULL 2V AP/LATon 022 XR SKULL 2V AP/LAT Normal [facility] ALLIED HEALTHon 08-04-2021 ALLIED HEALTH Normal [facility] Bacteria Bld Culton 08-05-19 22 Bacteria identified Cx Nom (Bld) CULTURE, BLOOD: No growth 5 days Normal [facility] Comment on above: Performed By: #### 6 00-7 ####[facility]ORATORYCLIA [id number] [address] OF [facility] Bacteria identified Cx Nom (Bld) CULTURE, BLOOD: No growth 5 days Normal [facility] Comment on above: Performed By: #### 6 00-7 ####[facility]ORATORYCLIA [id number] [address] [place] CBC W Auto Differential pane l (Bld)on 03-31-2022 Basophils (Bld) [#/Vol] 0.05 10*3/uL Normal <0.11 [facility] Comment on above: Order Comment: Speci men Type: BLOOD SPECIMENOrdering Facility: [facility] Address: [address] [place] [address] Performed By: #### 5 7021-8 ####[facility]ORATORYCLIA [id number] [address] [place] [facility] Basophils/100 WBC (Bld) 0.4 % Normal [facility] Comment on above: Order Comment: Speci men Type: BLOOD SPECIMENOrdering Facility: [facility] Address: [address] [place] [address] Performed By: #### 5 7021-8 ####[facility]ORATORYCLIA [id number] [address] [place] [facility] Differential cell count method Nom (Bld) Auto Normal [facility] Comment on above: Order Comment: Speci men Type: BLOOD SPECIMENOrdering Facility: [facility] Address: [address] [place] [address] Performed By: #### 5 7021-8 ####[facility]ORATORYCLIA [id number] [address] [place] Eosinophils (Bld) [#/Vol] 0.21 10*3/uL Normal <0.46 [facility] Comment on above: Order Comment: Speci men Type: BLOOD SPECIMENOrdering Facility: [facility] Address: [address] [place] [address] Performed By: #### 5 7021-8 ####[facility]ORATORYCLIA [id number] [address] [place] [facility] Eosinophils/100 WBC (Bld) 1.7 % Normal [facility] Comment on above: Order Comment: Speci men Type: BLOOD SPECIMENOrdering Facility: [facility] Address: [address] [place] [address] Performed By: #### 5 7021-8 ####[facility]ORATORYCLIA [id number] [address] Erythrocyte distribution width (RBC) [Ratio] 18.1 % High 11.5-15.0 [facility] Comment on above: Order Comment: Speci men Type: BLOOD SPECIMENOrdering Facility: [facility] Address: [address] [place] [address] Performed By: #### 5 7021-8 ####[facility] LABORATORYCLIA [id number] [address] Hematocrit (Bld) [Volume fraction] 32.0 % Low 39.0-51.0 [facility] Comment on above: Order Comment: Speci men Type: BLOOD SPECIMENOrdering Facility: [facility] Address: [address] [place] [address] Performed By: #### 5 7021-8 ####[facility] LABORATORYCLIA [id number] [address] Hemoglobin (Bld) [Mass/Vol] 10.0 g/dL Low 13.0-17.0 [facility] Comment on above: Order Comment: Speci men Type: BLOOD SPECIMENOrdering Facility: [facility] Address: [address] [place] [address] Performed By: #### 5 7021-8 ####[facility]ORATORYCLIA [id number] [address] IMMATURE GRAN % 0.6 % Normal [facility] Comment on above: Order Comment: Speci men Type: BLOOD SPECIMENOrdering Facility: [facility] Address: [address] [place] [address] Performed By: #### 5 7021-8 ####[facility]ORATORYCLIA [id number] [address] IMMATURE GRAN ABS 0.08 k/uL Normal <0.10 [facility] Comment on above: Order Comment: Speci men Type: BLOOD SPECIMENOrdering Facility: [facility] Address: [address] [place] [address] Performed By: #### 5 7021-8 ####[facility] LABORATORYCLIA [id number] [address] Lymphocytes (Bld) [#/Vol] 2.55 10*3/uL Normal 1.00-4.00 [facility] Comment on above: Order Comment: Speci men Type: BLOOD SPECIMENOrdering Facility: [facility] Address: [address] [place] [address] Performed By: #### 5 7021-8 ####[facility] LABORATORYCLIA [id number] [address] Lymphocytes/100 WBC (Bld) 20.5 % Normal [facility] Comment on above: Order Comment: Speci men Type: BLOOD SPECIMENOrdering Facility: [facility] Address: [address] [place] [address] Performed By: #### 5 7021-8 ####[facility] LABORATORYCLIA [id number] [address] MCH (RBC) [Entitic mass] 28.9 pg Normal 26.0-34.0 [facility] Comment on above: Order Comment: Speci men Type: BLOOD SPECIMENOrdering Facility: [facility] Address: [address] [place] [address] Performed By: #### 5 7021-8 ####[facility] LABORATORYCLIA [id number] [address] MCHC (RBC) [Mass/Vol] 31.3 g/dL Normal 30.5-36.0 [facility] Comment on above: Order Comment: Speci men Type: BLOOD SPECIMENOrdering Facility: [facility] Address: [address] [place] [address] Performed By: #### 5 7021-8 ####[facility] LABORATORYCLIA [id number] [address] OF [facility] MCV (RBC) [Entitic vol] 92.5 fL Normal 80.0-100.0 [facility] Comment on above: Order Comment: Speci men Type: BLOOD SPECIMENOrdering Facility: [facility] Address: [address] [place] [address] Performed By: #### 5 7021-8 ####[facility] LABORATORYCLIA [id number] [address] [place] Monocytes (Bld) [#/Vol] 0.85 10*3/uL Normal <0.87 [facility] Comment on above: Order Comment: Speci men Type: BLOOD SPECIMENOrdering Facility: [facility] Address: [address] [place] [address] Performed By: #### 5 7021-8 ####[facility] LABORATORYCLIA [id number] [address] Monocytes/100 WBC (Bld) 6.8 % Normal [facility] Comment on above: Order Comment: Speci men Type: BLOOD SPECIMENOrdering Facility: [facility] Address: [address] [place] [address] Performed By: #### 5 7021-8 ####[facility] LABORATORYCLIA [id number] [address] [place] Neutrophils (Bld) [#/Vol] 8.68 10*3/uL High 1.45-7.50 [facility] Comment on above: Order Comment: Speci men Type: BLOOD SPECIMENOrdering Facility: [facility] Address: [address] [place] [address] Performed By: #### 5 7021-8 ####[facility] LABORATORYCLIA [id number] [address] [place] Neutrophils/100 WBC (Bld) 70.0 % Normal [facility] Comment on above: Order Comment: Speci men Type: BLOOD SPECIMENOrdering Facility: [facility] Address: [address] [place] [address] Performed By: #### 5 7021-8 ####[facility] LABORATORYCLIA [id number] [place] [address] [place] Nucleated RBC (Bld) [#/Vol] 10*3/uL Normal <0.01 [facility] Comment on above: Order Comment: Speci men Type: BLOOD SPECIMENOrdering Facility: [facility] Address: [address] [address] Performed By: #### 5 7021-8 ####[facility] LABORATORYCLIA [id number] [address] [place] Nucleated RBC/100 WBC (Bld) [Ratio] 0.0 /100 WBC Normal [facility] Comment on above: Order Comment: Speci men Type: BLOOD SPECIMENOrdering Facility: [facility] Address: [address] [place] [address] Performed By: #### 5 7021-8 ####[facility] LABORATORYCLIA [id number] [address] [place] Platelet mean volume (Bld) [Entitic vol] 10.0 fL Normal 9.0-12.7 [facility] Comment on above: Order Comment: Speci men Type: BLOOD SPECIMENOrdering Facility: [facility] Address: [address] [place] [address] Performed By: #### 5 7021-8 ####[facility] LABORATORYCLIA [id number] [address] [place] Platelets (Bld) [#/Vol] 393 10*3/uL Normal 150-400 [facility] Comment on above: Order Comment: Speci men Type: BLOOD SPECIMENOrdering Facility: [facility] Address: [address] Performed By: #### 5 7021-8 ####[facility] LABORATORYCLIA [id number] [address] [place] RBC (Bld) [#/Vol] 3.46 10*6/uL Low 4.20-6.00 [facility] Comment on above: Order Comment: Speci men Type: BLOOD SPECIMENOrdering Facility: [facility] Address: [address] [place] [address] Performed By: #### 5 7021-8 ####[facility] LABORATORYCLIA [id number] [address] WBC (Bld) [#/Vol] 12.42 10*3/uL High 3.70-11.00 [facility] Comment on above: Order Comment: Speci men Type: BLOOD SPECIMENOrdering Facility: [facility] Address: [address] [place] [address] Performed By: #### 5 7021-8 ####[facility] LABORATORYCLIA [id number] [address] BRAIN WO IVCONon 08-05-[address] BRAIN WO IVCON Normal [facility] Lactate (Bld) [Moles/Vol]on 08-04-2021 Lactate [Moles/Vol] 1.4 mmol/L Normal 0.5-2.2 [facility] Comment on above: Order Comment: Speci men Type: BLOOD SPECIMENOrdering Facility: [facility] Address: [address] [place] [address] Performed By: #### 3 2693-4 ####[facility] LABORATORYCLIA [id number] [address] PROCALCITONIN (LAB)on 2021 Procalcitonin [Mass/Vol] 0.08 ng/mL Normal <0.09 [facility] Comment on above: Order Comment: Speci men Type: BLOOD SPECIMENOrdering Facility: [facility] Address: [address] [place] [address] Result Comment: For a guided interpretation of test results, please visit the Change in Procalcitonin Calculator, [email or web address]. Performed By: #### P ROCAL ####[facility] LABORATORYCLIA [id number] [address] Prealbumin [Mass/Vol]on 07-07 Prealbumin Nephelometry [Mass/Vol] 35 mg/dL Normal 17-36 [facility] Comment on above: Order Comment: Speci men Type: BLOOD SPECIMENOrdering Facility: [facility] Address: [address] [place] [address] Performed By: #### 1 4338-8 ####[facility] LABORATORYCLIA [id number] [address] [place] SARS-CoV-2 RNA Resp Ql MEGAN+p robeon 08-04-2021 SARS-CoV-2 (COVID-19) RNA MEGAN+probe Ql (Resp) COVID 19 RESULT: SARS-CoV-2 (Agent of COVID-19) Not Detected by RT-PCR or equivalent method. This test has been authorized by FDA under an Emergency Use Authorization (EUA). Normal [facility] Comment on above: Performed By: #### 9 4500-6 ####[facility] LABORATORYCLIA [id number] [address] STATES OF [facility] TYPE AND SCREENon 08-04-2021 ABO O Normal [facility] Comment on above: Order Comment: Speci men Type: BLOOD SPECIMENOrdering Facility: [facility] Address: [address] [place] [address] Performed By: #### T SCR ####[facility] BLOOD BANKCLIA [id number] [address] HISTORICAL AB SCR STATUS Negative [facility] Comment on above: Order Comment: Speci men Type: BLOOD SPECIMENOrdering Facility: [facility] Address: [address] [place] [address] Performed By: #### T SCR ####[facility] BLOOD BANKCLIA [id number] [address] [place] Rh Nom (Bld) Positive Normal [facility] Comment on above: Order Comment: Speci men Type: BLOOD SPECIMENOrdering Facility: [facility] Address: [address] [place] [address] Performed By: #### T SCR ####[facility] BLOOD BANKCLIA [id number] [address] [place] TYPE AND SCREEN EXPIRATION 08/07/2021 23:59 Normal [facility] Comment on above: Order Comment: Speci men Type: BLOOD SPECIMENOrdering Facility: [facility] Address: [address] [place] [address] Performed By: #### T SCR ####[facility] BLOOD BANKCLIA [id number] [address] aPTT PPPon 08-04-2021 aPTT Coag (PPP) [Time] 51.8 s High 23.0-32.4 [facility] Comment on above: Order Comment: Speci men Type: BLOOD SPECIMENOrdering Facility: [facility] Address: [address] [place] [address] Performed By: #### 1 4979-9 ####[facility] LABORATORYCLIA [id number] [address] Basic metabolic 2000 panelon 08-03-2021 Anion gap [Moles/Vol] 9 mmol/L Normal 9-18 [facility] Comment on above: Order Comment: Speci men Type: BLOOD SPECIMENOrdering Facility: [facility] Address: [address] [place] [address] Performed By: #### 2 4321-2, , 2776-05 ####[facility] LABORATORYCLIA [id number] [address] STATES OF [facility] Calcium [Mass/Vol] 9.3 mg/dL Normal 8.5-10.2 [facility] Comment on above: Order Comment: Speci men Type: BLOOD SPECIMENOrdering Facility: [facility] Address: [address] [place] [address] Performed By: #### 2 4321-2, , 2776-05 ####[facility] LABORATORYCLIA [id number] [address] STATES [place] [facility] Chloride [Moles/Vol] 97 mmol/L Normal 97-105 [facility] Comment on above: Order Comment: Speci men Type: BLOOD SPECIMENOrdering Facility: [facility] Address: [address] [place] [address] Performed By: #### 2 4321-2, , 2776-05 ####[facility]REMENCLIA [id number] [address] CO2 [Moles/Vol] 27 mmol/L Normal 22-30 [facility] Comment on above: Order Comment: Speci men Type: BLOOD SPECIMENOrdering Facility: [facility] Address: [address] [place] [address] Performed By: #### 2 4321-2, , 2776-05 ####[facility]GIA [id number] [address] Creatinine [Mass/Vol] 0.63 mg/dL Low 0.73-1.22 [facility] Comment on above: Order Comment: Speci men Type: BLOOD SPECIMENOrdering Facility: [facility] Address: [address] [place] [address] Performed By: #### 2 4321-2, , 2776-05 ####[facility] H[facility]GIA [id number] [address] ESTIMATED GLOMERULAR FILTRATION RATE 103 mL/min/1.73m??? Normal >=60 [facility] Comment on above: Order Comment: Speci men Type: BLOOD SPECIMENOrdering Facility: [facility] Address: [address] [place] [address] Result Comment: Luzmaria mated Glomerular Filtration Rate [...] Performed By: #### 2 4321-2, , 2776-05 ####[facility] LABORATORYCLIA [id number] [place] [address] [place] Glucose [Mass/Vol] 136 mg/dL High 74-99 [facility] Comment on above: Order Comment: Shira men Type: BLOOD SPECIMENOrdering Facility: [facility] Address: [address] [place], [place] [address] Result Comment: The [place] [employer] (ADA) provides guidance for cutoff [...] Standards of Medical Care in Diabetes 2016, [place] [employer]. Diabetes Care. 2016.39(Suppl 1). Performed By: #### 2 4321-2, , 2776-05 ####[facility] LABORATORYCLIA [id number] [place] [address] [place] Potassium [Moles/Vol] 4.1 mmol/L Normal 3.7-5.1 [facility] Comment on above: Order Comment: Shira feldman Type: BLOOD SPECIMENOrdering Facility: [facility] Address: [address] [id number] Performed By: #### 2 4321-2, , 2776-05 ####[facility] LABORATORYCLIA [id number] [place] [address] [place] Sodium [Moles/Vol] 133 mmol/L Low 136-144 [facility] Comment on above: Order Comment: Shira feldman Type: BLOOD SPECIMENOrdering Facility: [facility] Address: [address] [id number] Performed By: #### 2 4321-2, , 2776-05 ####[facility] LABORATORYCLIA [id number] [address] [place] Urea nitrogen [Mass/Vol] 40 mg/dL High 9-24 [facility] Comment on above: Order Comment: Speci men Type: BLOOD SPECIMENOrdering Facility: [facility] Address: [address] [place] [address] Performed By: #### 2 4321-2, 19842-0, 2777-1 ####[facility] LABORATORYCLIA [id number] [address] [place] CASE MANAGEMon 08-03-2021 CASE MANAGEM Normal [facility] CBC W Auto Differential pane l (Bld)on 08-03-2021 Basophils (Bld) [#/Vol] 0.06 10*3/uL Normal <0.11 [facility] Comment on above: Order Comment: Speci men Type: BLOOD SPECIMENOrdering Facility: [facility] Address: [address] [place] [address] Performed By: #### 5 7021-8 ####[facility] LABORATORYCLIA [id number] [address] [place] Basophils/100 WBC (Bld) 0.5 % Normal [facility] Comment on above: Order Comment: Speci men Type: BLOOD SPECIMENOrdering Facility: [facility] Address: [address] [place] [address] Performed By: #### 5 7021-8 ####[facility] LABORATORYCLIA [id number] [address] [place] Differential cell count method Nom (Bld) Auto Normal [facility] Comment on above: Order Comment: Speci men Type: BLOOD SPECIMENOrdering Facility: [facility] Address: [address] [place] [address] Performed By: #### 5 7021-8 ####[facility] LABORATORYCLIA [id number] [place] [address] [place] Eosinophils (Bld) [#/Vol] 0.23 10*3/uL Normal <0.46 [facility] Comment on above: Order Comment: Speci men Type: BLOOD SPECIMENOrdering Facility: [facility] Address: [address] [place] [address] Performed By: #### 5 7021-8 ####[facility] LABORATORYCLIA [id number] [address] Eosinophils/100 WBC (Bld) 1.8 % Normal [facility] Comment on above: Order Comment: Speci men Type: BLOOD SPECIMENOrdering Facility: [facility] Address: [address] [place] [address] Performed By: #### 5 7021-8 ####[facility] LABORATORYCLIA [id number] [address] Erythrocyte distribution width (RBC) [Ratio] 17.6 % High 11.5-15.0 [facility] Comment on above: Order Comment: Speci men Type: BLOOD SPECIMENOrdering Facility: [facility] Address: [address] [place] [address] Performed By: #### 5 7021-8 ####[facility] LABORATORYCLIA [id number] [address] Hematocrit (Bld) [Volume fraction] 30.7 % Low 39.0-51.0 [facility] Comment on above: Order Comment: Speci men Type: BLOOD SPECIMENOrdering Facility: [facility] Address: [address] [place] [address] Performed By: #### 5 7021-8 ####[facility] LABORATORYCLIA [id number] [address] [place] Hemoglobin (Bld) [Mass/Vol] 9.3 g/dL Low 13.0-17.0 [facility] Comment on above: Order Comment: Speci men Type: BLOOD SPECIMENOrdering Facility: [facility] Address: [address] [place] [address] Performed By: #### 5 7021-8 ####[facility] LABORATORYCLIA [id number] [address] [place] IMMATURE GRAN % 0.6 % Normal [facility] Comment on above: Order Comment: Speci men Type: BLOOD SPECIMENOrdering Facility: [facility] Address: [address] [place] [address] Performed By: #### 5 7021-8 ####[facility] LABORATORYCLIA [id number] [address] IMMATURE GRAN ABS 0.08 k/uL Normal <0.10 [facility] Comment on above: Order Comment: Speci men Type: BLOOD SPECIMENOrdering Facility: [facility] Address: [address] [place] [address] Performed By: #### 5 7021-8 ####[facility] LABORATORYCLIA [id number] [address] Lymphocytes (Bld) [#/Vol] 2.45 10*3/uL Normal 1.00-4.00 [facility] Comment on above: Order Comment: Speci men Type: BLOOD SPECIMENOrdering Facility: [facility] Address: [address] [place] [address] Performed By: #### 5 7021-8 ####[facility] LABORATORYCLIA [id number] [address] Lymphocytes/100 WBC (Bld) 19.7 % Normal [facility] Comment on above: Order Comment: Speci men Type: BLOOD SPECIMENOrdering Facility: [facility] Address: [address] [place] [address] Performed By: #### 5 7021-8 ####[facility] LABORATORYCLIA [id number] [address] [place] MCH (RBC) [Entitic mass] 28.2 pg Normal 26.0-34.0 [facility] Comment on above: Order Comment: Speci men Type: BLOOD SPECIMENOrdering Facility: [facility] Address: [address] [place] [address] Performed By: #### 5 7021-8 ####[facility]ORATORYCLIA [id number] [address] [place] [facility] MCHC (RBC) [Mass/Vol] 30.3 g/dL Low 30.5-36.0 [facility] Comment on above: Order Comment: Speci men Type: BLOOD SPECIMENOrdering Facility: [facility] Address: [address] [place] [address] Performed By: #### 5 7021-8 ####[facility] LABORATORYCLIA [id number] [address] MCV (RBC) [Entitic vol] 93.0 fL Normal 80.0-100.0 [facility] Comment on above: Order Comment: Speci men Type: BLOOD SPECIMENOrdering Facility: [facility] Address: [address] [place] [address] Performed By: #### 5 7021-8 ####[facility] LABORATORYCLIA [id number] [address] STATES [facility] Monocytes (Bld) [#/Vol] 0.72 10*3/uL Normal <0.87 [facility] Comment on above: Order Comment: Speci men Type: BLOOD SPECIMENOrdering Facility: [facility] Address: [address] [place] [address] Performed By: #### 5 7021-8 ####[facility] LABORATORYCLIA [id number] [address] Monocytes/100 WBC (Bld) 5.8 % Normal [facility] Comment on above: Order Comment: Speci men Type: BLOOD SPECIMENOrdering Facility: [facility] Address: [address] [place] [address] Performed By: #### 5 7021-8 ####[facility] LABORATORYCLIA [id number] [address] [place] Neutrophils (Bld) [#/Vol] 8.92 10*3/uL High 1.45-7.50 [facility] Comment on above: Order Comment: Speci men Type: BLOOD SPECIMENOrdering Facility: [facility] Address: [address] [address] Performed By: #### 5 7021-8 ####[facility] LABORATORYCLIA [id number] [address] Neutrophils/100 WBC (Bld) 71.6 % Normal [facility] Comment on above: Order Comment: Speci men Type: BLOOD SPECIMENOrdering Facility: [facility] Address: [address] [place] [address] Performed By: #### 5 7021-8 ####[facility] LABORATORYCLIA [id number] [address] Nucleated RBC (Bld) [#/Vol] 10*3/uL Normal <0.01 [facility] Comment on above: Order Comment: Speci men Type: BLOOD SPECIMENOrdering Facility: [facility] Address: [address] [place] [address] Performed By: #### 5 7021-8 ####[facility] LABORATORYCLIA [id number] [address] Nucleated RBC/100 WBC (Bld) [Ratio] 0.0 /100 WBC Normal [facility] Comment on above: Order Comment: Speci men Type: BLOOD SPECIMENOrdering Facility: [facility] Address: [address] [place] [address] Performed By: #### 5 7021-8 ####[facility] LABORATORYCLIA [id number] [address] Platelet mean volume (Bld) [Entitic vol] 10.2 fL Normal 9.0-12.7 [facility] Comment on above: Order Comment: Speci men Type: BLOOD SPECIMENOrdering Facility: [facility] Address: [address] [place] [address] Performed By: #### 5 7021-8 ####[facility] LABORATORYCLIA [id number] [address] [place] Platelets (Bld) [#/Vol] 352 10*3/uL Normal 150-400 [facility] Comment on above: Order Comment: Speci men Type: BLOOD SPECIMENOrdering Facility: [facility] Address: [address] [place] [address] Performed By: #### 5 7021-8 ####[facility] LABORATORYCLIA [id number] [place] [address] [place] RBC (Bld) [#/Vol] 3.30 10*6/uL Low 4.20-6.00 [facility] Comment on above: Order Comment: Speci men Type: BLOOD SPECIMENOrdering Facility: [facility] Address: [address] [place] [address] Performed By: #### 5 7021-8 ####[facility] LABORATORYCLIA [id number] [address] STATES [place] [facility] WBC (Bld) [#/Vol] 12.46 10*3/uL High 3.70-11.00 [facility] Comment on above: Order Comment: Speci men Type: BLOOD SPECIMENOrdering Facility: [facility] Address: [address] [place] [address] Performed By: #### 5 7021-8 ####[facility] LABORATORYCLIA [id number] [address] CONSULT PROGon 08-03-2021 CONSULT PROG Normal [facility] Magnesium SerPl-ncon 08-03 Magnesium [Mass/Vol] 2.2 mg/dL Normal 1.7-2.3 [facility] Comment on above: Order Comment: Speci men Type: BLOOD SPECIMENOrdering Facility: [facility] Address: [address] [place] [address] Performed By: #### 2 4321-2, 03651-8, 2777-1 ####[facility] LABORATORYCLIA [id number] [address] [place] NURSING PROGon 08-03-2021 NURSING PROG Normal [facility] Phosphate SerPl-mCncon 08-03 Phosphate [Mass/Vol] 4.2 mg/dL Normal 2.7-4.8 [facility] Comment on above: Order Comment: Speci men Type: BLOOD SPECIMENOrdering Facility: [facility] Address: [address] [place] [address] Performed By: #### 2 4321-2, 85685-5, 2777-1 ####[facility] LABORATORYCLIA [id number] [place] [address] [place] aPTT PPPon 08-03-2021 aPTT Coag (PPP) [Time] 50.0 s High 23.0-32.4 [facility] Comment on above: Order Comment: Speci men Type: BLOOD SPECIMENOrdering Facility: [facility] Address: [address] [place] [address] Performed By: #### 1 4979-9 ####[facility] LABORATORYCLIA [id number] [address] [place] [facility] CBC W Auto Differential pane l (Bld)on 08-02-2021 Basophils (Bld) [#/Vol] 10*3/uL Normal <0.11 [facility] Comment on above: Order Comment: Speci men Type: BLOOD SPECIMENOrdering Facility: [facility] Address: [address] [place] [address] Performed By: #### 5 7021-8 ####[facility] LABORATORYCLIA [id number] [address] [place] [facility] Basophils/100 WBC (Bld) 0.2 % Normal [facility] Comment on above: Order Comment: Speci men Type: BLOOD SPECIMENOrdering Facility: [facility] Address: [address] [place] [address] Performed By: #### 5 7021-8 ####[facility] LABORATORYCLIA [id number] [address] STATES OF [facility] Differential cell count method Nom (Bld) Auto Normal [facility] Comment on above: Order Comment: Speci men Type: BLOOD SPECIMENOrdering Facility: [facility] Address: [address] [place] [address] Performed By: #### 5 7021-8 ####[facility] LABORATORYCLIA [id number] [address] Eosinophils (Bld) [#/Vol] 10*3/uL Normal <0.46 [facility] Comment on above: Order Comment: Speci men Type: BLOOD SPECIMENOrdering Facility: [facility] Address: [address] [place] [address] Performed By: #### 5 7021-8 ####[facility] LABORATORYCLIA [id number] [address] Eosinophils/100 WBC (Bld) 0.0 % Normal [facility] Comment on above: Order Comment: Speci men Type: BLOOD SPECIMENOrdering Facility: [facility] Address: [address] [place] [address] Performed By: #### 5 7021-8 ####[facility] LABORATORYCLIA [id number] [address] Erythrocyte distribution width (RBC) [Ratio] 17.3 % High 11.5-15.0 [facility] Comment on above: Order Comment: Speci men Type: BLOOD SPECIMENOrdering Facility: [facility] Address: [address] [place] [address] Performed By: #### 5 7021-8 ####[facility] LABORATORYCLIA [id number] [address] Hematocrit (Bld) [Volume fraction] 30.8 % Low 39.0-51.0 [facility] Comment on above: Order Comment: Speci men Type: BLOOD SPECIMENOrdering Facility: [facility] Address: [address] [place] [address] Performed By: #### 5 7021-8 ####[facility] LABORATORYCLIA [id number] [address] Hemoglobin (Bld) [Mass/Vol] 9.7 g/dL Low 13.0-17.0 [facility] Comment on above: Order Comment: Speci men Type: BLOOD SPECIMENOrdering Facility: [facility] Address: [address] [place] [address] Performed By: #### 5 7021-8 ####[facility]ORATORYCLIA [id number] [address] IMMATURE GRAN % 0.5 % Normal [facility] Comment on above: Order Comment: Speci men Type: BLOOD SPECIMENOrdering Facility: [facility] Address: [address] [place] [address] Performed By: #### 5 7021-8 ####[facility] LABORATORYCLIA [id number] [address] IMMATURE GRAN ABS 0.07 k/uL Normal <0.10 [facility] Comment on above: Order Comment: Speci men Type: BLOOD SPECIMENOrdering Facility: [facility] Address: [address] [place] [address] Performed By: #### 5 7021-8 ####[facility] LABORATORYCLIA [id number] [address] Lymphocytes (Bld) [#/Vol] 1.60 10*3/uL Normal 1.00-4.00 [facility] Comment on above: Order Comment: Speci men Type: BLOOD SPECIMENOrdering Facility: [facility] Address: [address] [place] [address] Performed By: #### 5 7021-8 ####[facility]ORATORYCLIA [id number] [address] Lymphocytes/100 WBC (Bld) 12.1 % Normal [facility] Comment on above: Order Comment: Speci men Type: BLOOD SPECIMENOrdering Facility: [facility] Address: [address] [place] [address] Performed By: #### 5 7021-8 ####[facility]ORATORYCLIA [id number] [address] [place] MCH (RBC) [Entitic mass] 28.6 pg Normal 26.0-34.0 [facility] Comment on above: Order Comment: Speci men Type: BLOOD SPECIMENOrdering Facility: [facility] Address: [address] [place] [address] Performed By: #### 5 7021-8 ####[facility] LABORATORYCLIA [id number] [address] OF [facility] MCHC (RBC) [Mass/Vol] 31.5 g/dL Normal 30.5-36.0 [facility] Comment on above: Order Comment: Speci men Type: BLOOD SPECIMENOrdering Facility: [facility] Address: [address] [place] [address] Performed By: #### 5 7021-8 ####[facility] LABORATORYCLIA [id number] [address] MCV (RBC) [Entitic vol] 90.9 fL Normal 80.0-100.0 [facility] Comment on above: Order Comment: Speci men Type: BLOOD SPECIMENOrdering Facility: [facility] Address: [address] [place] [address] Performed By: #### 5 7021-8 ####[facility] LABORATORYCLIA [id number] [address] Monocytes (Bld) [#/Vol] 0.39 10*3/uL Normal <0.87 [facility] Comment on above: Order Comment: Speci men Type: BLOOD SPECIMENOrdering Facility: [facility] Address: [address] [place] [address] Performed By: #### 5 7021-8 ####[facility] LABORATORYCLIA [id number] [address] Monocytes/100 WBC (Bld) 3.0 % Normal [facility] Comment on above: Order Comment: Speci men Type: BLOOD SPECIMENOrdering Facility: [facility] Address: [address] [place] [address] Performed By: #### 5 7021-8 ####[facility]ORATORYCLIA [id number] [place] [address] [place] Neutrophils (Bld) [#/Vol] 11.09 10*3/uL High 1.45-7.50 [facility] Comment on above: Order Comment: Speci men Type: BLOOD SPECIMENOrdering Facility: [facility] Address: [address] [place] [address] Performed By: #### 5 7021-8 ####[facility] LABORATORYCLIA [id number] [address] [place] Neutrophils/100 WBC (Bld) 84.2 % Normal [facility] Comment on above: Order Comment: Speci men Type: BLOOD SPECIMENOrdering Facility: [facility] Address: [address] [place] [address] Performed By: #### 5 7021-8 ####[facility] LABORATORYCLIA [id number] [address] [place] Nucleated RBC (Bld) [#/Vol] 10*3/uL Normal <0.01 [facility] Comment on above: Order Comment: Speci men Type: BLOOD SPECIMENOrdering Facility: [facility] Address: [address] [place] [address] Performed By: #### 5 7021-8 ####[facility] LABORATORYCLIA [id number] [address] [place] Nucleated RBC/100 WBC (Bld) [Ratio] 0.0 /100 WBC Normal [facility] Comment on above: Order Comment: Speci men Type: BLOOD SPECIMENOrdering Facility: [facility] Address: [address] [place] [address] Performed By: #### 5 7021-8 ####[facility] LABORATORYCLIA [id number] [address] [place] Platelet mean volume (Bld) [Entitic vol] 10.0 fL Normal 9.0-12.7 [facility] Comment on above: Order Comment: Speci men Type: BLOOD SPECIMENOrdering Facility: [facility] Address: [address] [place] [address] Performed By: #### 5 7021-8 ####[facility] LABORATORYCLIA [id number] [address] Platelets (Bld) [#/Vol] 358 10*3/uL Normal 150-400 [facility] Comment on above: Order Comment: Speci men Type: BLOOD SPECIMENOrdering Facility: [facility] Address: [address] [place] [address] Performed By: #### 5 7021-8 ####[facility] LABORATORYCLIA [id number] [address] RBC (Bld) [#/Vol] 3.39 10*6/uL Low 4.20-6.00 [facility] Comment on above: Order Comment: Speci men Type: BLOOD SPECIMENOrdering Facility: [facility] Address: [address] [place] [address] Performed By: #### 5 7021-8 ####[facility]ORATORYCLIA [id number] [address] WBC (Bld) [#/Vol] 13.17 10*3/uL High 3.70-11.00 [facility] Comment on above: Order Comment: Speci men Type: BLOOD SPECIMENOrdering Facility: [facility] Address: [address] [place] [address] Performed By: #### 5 7021-8 ####[facility] LABORATORYCLIA [id number] [address] OF [facility] NURSING PROGon 08-02-2021 NURSING PROG Normal [facility] THERAPY NTon 08-02-2021 THERAPY NT Normal [facility] aPTT PPPon 08-02-2021 aPTT Coag (PPP) [Time] 54.9 s High 23.0-32.4 [facility] Comment on above: Order Comment: Speci men Type: BLOOD SPECIMENOrdering Facility: [facility] Address: [address] [place] [address] Performed By: #### 1 4979-9 ####[facility] LABORATORYCLIA [id number] [place] [id number] [place] ALLIED HEALTHon 08-01-2021 ALLIED HEALTH Normal [facility] ALLIED HEALTH Normal [facility] Basic metabolic 2000 panelon 08-01-2021 Anion gap [Moles/Vol] 12 mmol/L Normal 9-18 [facility] Comment on above: Order Comment: Speci men Type: BLOOD SPECIMENOrdering Facility: [facility] Address: [address] [place] [address] Performed By: #### 2 4321-2, 84035-8, 73229-5, 2777-1 ####[facility] LABORATORYCLIA [id number] [place] [address] [place] Calcium [Mass/Vol] 9.1 mg/dL Normal 8.5-10.2 [facility] Comment on above: Order Comment: Speci men Type: BLOOD SPECIMENOrdering Facility: [facility] Address: [address] [place] [address] Performed By: #### 2 4321-2, 60017-2, 56997-7, 2777-1 ####[facility]ORATORYCLIA [id number] [place] [address] [place] Chloride [Moles/Vol] 96 mmol/L Low 97-105 [facility] Comment on above: Order Comment: Speci men Type: BLOOD SPECIMENOrdering Facility: [facility] Address: [address] [place] [address] Performed By: #### 2 4321-2, 70667-8, 29460-1, 2777-1 ####[facility]ORATORYCLIA [id number] [place] [address] [place] CO2 [Moles/Vol] 27 mmol/L Normal 22-30 [facility] Comment on above: Order Comment: Speci men Type: BLOOD SPECIMENOrdering Facility: [facility] Address: [address] [place] [address] Performed By: #### 2 4321-2, 82920-3, 41582-0, 2777-1 ####[facility]REM[facility]CLIA [id number] [place] [address] [place] Creatinine [Mass/Vol] 0.64 mg/dL Low 0.73-1.22 [facility] Comment on above: Order Comment: Speci men Type: BLOOD SPECIMENOrdering Facility: [facility] Address: [address] [place] [address] Performed By: #### 2 4321-2, 49979-6, 07646-5, 2777- ####[facility]REM[facility]CLIA [id number] [address] [place] ESTIMATED GLOMERULAR FILTRATION RATE 102 mL/min/1.73m??? Normal >=60 [facility] Comment on above: Order Comment: Speci men Type: BLOOD SPECIMENOrdering Facility: [facility] Address: [address] [place] [address] Result Comment: Luzmaria mated Glomerular Filtration Rate [...] actual GFR. Performed By: #### 2 4321-2, 28709-9, 51866-5, 2777-1 ####[facility]ORATORYCLIA [id number] [place] [address] [place] Glucose [Mass/Vol] 122 mg/dL High 74-99 [facility] Comment on above: Order Comment: Speci men Type: BLOOD SPECIMENOrdering Facility: [facility] Address: [address] [place] [address] Result Comment: The [place] [employer] (ADA) provides guidance for cutoff [...] Standards of Medical Care in Diabetes 2016, [place] [employer]. Diabetes Care. 2016.39(Suppl 1). Performed By: #### 2 4321-2, 87769-6, 56440-7, 2777-1 ####[facility] LABORATORYCLIA [id number] [place] [address] [place] Potassium [Moles/Vol] 4.2 mmol/L Normal 3.7-5.1 [facility] Comment on above: Order Comment: Shira feldman Type: BLOOD SPECIMENOrdering Facility: [facility] Address: [address] [place] [address] Performed By: #### 2 4321-2, 95866-0, 15349-0, 2777-1 ####[facility]CLIA [id number] [place] [address] [place] Sodium [Moles/Vol] 135 mmol/L Low 136-144 [facility] Comment on above: Order Comment: Shira feldman Type: BLOOD SPECIMENOrdering Facility: [facility] Address: [address] [place] [address] Performed By: #### 2 4321-2, 88708-2, 39374-8, 2777-1 ####[facility]ORATORYCLIA [id number] [place] [address] [place] Urea nitrogen [Mass/Vol] 36 mg/dL High 9-24 [facility] Comment on above: Order Comment: Shira feldman Type: BLOOD SPECIMENOrdering Facility: [facility] Address: [address] [address] Performed By: #### 2 4321-2, 41256-8, 51385-4, 2777-1 ####[facility]ORATORYCLIA [id number] [address] [place] CASE MANAGEMon 08-01-2021 CASE MANAGEM Normal [facility] CBC W Auto Differential pane l (Bld)on 08-01-2021 Basophils (Bld) [#/Vol] 0.04 10*3/uL Normal <0.11 [facility] Comment on above: Order Comment: Speci men Type: BLOOD SPECIMENOrdering Facility: [facility] Address: [address] [place] [address] Performed By: #### 5 7021-8 ####[facility] LABORATORYCLIA [id number] [address] STATES [facility] Basophils/100 WBC (Bld) 0.3 % Normal [facility] Comment on above: Order Comment: Speci men Type: BLOOD SPECIMENOrdering Facility: [facility] Address: [address] [place] [address] Performed By: #### 5 7021-8 ####[facility]ORATORYCLIA [id number] [address] STATES [facility] Differential cell count method Nom (Bld) Auto Normal [facility] Comment on above: Order Comment: Speci men Type: BLOOD SPECIMENOrdering Facility: [facility] Address: [address] [place] [address] Performed By: #### 5 7021-8 ####[facility]ORATORYCLIA [id number] [address] [place] Eosinophils (Bld) [#/Vol] 0.37 10*3/uL Normal <0.46 [facility] Comment on above: Order Comment: Speci men Type: BLOOD SPECIMENOrdering Facility: [facility] Address: [address] [place] [address] Performed By: #### 5 7021-8 ####[facility] LABORATORYCLIA [id number] [address] [place] Eosinophils/100 WBC (Bld) 3.1 % Normal [facility] Comment on above: Order Comment: Speci men Type: BLOOD SPECIMENOrdering Facility: [facility] Address: [address] [place] [address] Performed By: #### 5 7021-8 ####[facility] LABORATORYCLIA [id number] [address] Erythrocyte distribution width (RBC) [Ratio] 17.5 % High 11.5-15.0 [facility] Comment on above: Order Comment: Speci men Type: BLOOD SPECIMENOrdering Facility: [facility] Address: [address] [place] [address] Performed By: #### 5 7021-8 ####[facility] LABORATORYCLIA [id number] [address] Hematocrit (Bld) [Volume fraction] 30.1 % Low 39.0-51.0 [facility] Comment on above: Order Comment: Speci men Type: BLOOD SPECIMENOrdering Facility: [facility] Address: [address] [place] [address] Performed By: #### 5 7021-8 ####[facility]ORATORYCLIA [id number] [address] Hemoglobin (Bld) [Mass/Vol] 9.1 g/dL Low 13.0-17.0 [facility] Comment on above: Order Comment: Speci men Type: BLOOD SPECIMENOrdering Facility: [facility] Address: [address] [place] [address] Performed By: #### 5 7021-8 ####[facility]ORATORYCLIA [id number] [address] IMMATURE GRAN % 0.6 % Normal [facility] Comment on above: Order Comment: Speci men Type: BLOOD SPECIMENOrdering Facility: [facility] Address: [address] [place] [address] Performed By: #### 5 7021-8 ####[facility]ORATORYCLIA [id number] [address] IMMATURE GRAN ABS 0.07 k/uL Normal <0.10 [facility] Comment on above: Order Comment: Speci men Type: BLOOD SPECIMENOrdering Facility: [facility] Address: [address] [place] [address] Performed By: #### 5 7021-8 ####[facility] LABORATORYCLIA [id number] [address] [place] Lymphocytes (Bld) [#/Vol] 2.05 10*3/uL Normal 1.00-4.00 [facility] Comment on above: Order Comment: Speci men Type: BLOOD SPECIMENOrdering Facility: [facility] Address: [address] [place] [address] Performed By: #### 5 7021-8 ####[facility]ORATORYCLIA [id number] [address] Lymphocytes/100 WBC (Bld) 17.1 % Normal [facility] Comment on above: Order Comment: Speci men Type: BLOOD SPECIMENOrdering Facility: [facility] Address: [address] [place] [address] Performed By: #### 5 7021-8 ####[facility]ORATORYCLIA [id number] [address] MCH (RBC) [Entitic mass] 27.7 pg Normal 26.0-34.0 [facility] Comment on above: Order Comment: Speci men Type: BLOOD SPECIMENOrdering Facility: [facility] Address: [address] [place] [address] Performed By: #### 5 7021-8 ####[facility]ORATORYCLIA [id number] [address] MCHC (RBC) [Mass/Vol] 30.2 g/dL Low 30.5-36.0 [facility] Comment on above: Order Comment: Speci men Type: BLOOD SPECIMENOrdering Facility: [facility] Address: [address] [address] Performed By: #### 5 7021-8 ####[facility]ORATORYCLIA [id number] [address] [place] MCV (RBC) [Entitic vol] 91.5 fL Normal 80.0-100.0 [facility] Comment on above: Order Comment: Speci men Type: BLOOD SPECIMENOrdering Facility: [facility] Address: [address] [place] [address] Performed By: #### 5 7021-8 ####[facility]ORATORYCLIA [id number] [address] [place] Monocytes (Bld) [#/Vol] 0.53 10*3/uL Normal <0.87 [facility] Comment on above: Order Comment: Speci men Type: BLOOD SPECIMENOrdering Facility: [facility] Address: [address] [place] [address] Performed By: #### 5 7021-8 ####[facility]ORATORYCLIA [id number] [address] Monocytes/100 WBC (Bld) 4.4 % Normal [facility] Comment on above: Order Comment: Speci men Type: BLOOD SPECIMENOrdering Facility: [facility] Address: [address] [place] [address] Performed By: #### 5 7021-8 ####[facility]ORATORYCLIA [id number] [address] [place] Neutrophils (Bld) [#/Vol] 8.91 10*3/uL High 1.45-7.50 [facility] Comment on above: Order Comment: Speci men Type: BLOOD SPECIMENOrdering Facility: [facility] Address: [address] [place] [address] Performed By: #### 5 7021-8 ####[facility]ORATORYCLIA [id number] [address] [place] Neutrophils/100 WBC (Bld) 74.5 % Normal [facility] Comment on above: Order Comment: Speci men Type: BLOOD SPECIMENOrdering Facility: [facility] Address: [address] [address] Performed By: #### 5 7021-8 ####[facility]ORATORYCLIA [id number] [address] [place] Nucleated RBC (Bld) [#/Vol] 10*3/uL Normal <0.01 [facility] Comment on above: Order Comment: Speci men Type: BLOOD SPECIMENOrdering Facility: [facility] Address: [address] [place] [address] Performed By: #### 5 7021-8 ####[facility] LABORATORYCLIA [id number] [address] [place] Nucleated RBC/100 WBC (Bld) [Ratio] 0.0 /100 WBC Normal [facility] Comment on above: Order Comment: Speci men Type: BLOOD SPECIMENOrdering Facility: [facility] Address: [address] [place] [address] Performed By: #### 5 7021-8 ####[facility]ORATORYCLIA [id number] [address] [place] Platelet mean volume (Bld) [Entitic vol] 10.4 fL Normal 9.0-12.7 [facility] Comment on above: Order Comment: Speci men Type: BLOOD SPECIMENOrdering Facility: [facility] Address: [address] [place], [place] [address] Performed By: #### 5 7021-8 ####[facility]ORATORYCLIA [id number] [address] [place] Platelets (Bld) [#/Vol] 319 10*3/uL Normal 150-400 [facility] Comment on above: Order Comment: Speci men Type: BLOOD SPECIMENOrdering Facility: [facility] Address: [address] [place] [address] Performed By: #### 5 7021-8 ####[facility]ORATORYCLIA [id number] [address] OF [facility] RBC (Bld) [#/Vol] 3.29 10*6/uL Low 4.20-6.00 [facility] Comment on above: Order Comment: Speci men Type: BLOOD SPECIMENOrdering Facility: [facility] Address: [address] [place] [address] Performed By: #### 5 7021-8 ####[facility]ORATORYCLIA [id number] [address] OF [facility] WBC (Bld) [#/Vol] 11.97 10*3/uL High 3.70-11.00 [facility] Comment on above: Order Comment: Speci men Type: BLOOD SPECIMENOrdering Facility: [facility] Address: [address] [place] [address] Performed By: #### 5 7021-8 ####[facility] LABORATORYCLIA [id number] [address] OF [facility] CT BRAIN WO IVCONon 08-02-[address] BRAIN WO IVCON Normal [facility] Magnesium SerPl-ncon 08-01 Magnesium [Mass/Vol] 2.4 mg/dL High 1.7-2.3 [facility] Comment on above: Order Comment: Speci men Type: BLOOD SPECIMENOrdering Facility: [facility] Address: [address] [place] [address] Performed By: #### 2 4321-2, 39416-9, 76439-7, 2777-1 ####[facility]ORATORYCLIA [id number] [address] [place] NURSING PROGon 08-01-2021 NURSING PROG Normal [facility] NUTRITIONon 08-01-2021 NUTRITION Normal [facility] Phosphate SerPl-mCncon 08-01 Phosphate [Mass/Vol] 3.3 mg/dL Normal 2.7-4.8 [facility] Comment on above: Order Comment: Speci men Type: BLOOD SPECIMENOrdering Facility: [facility] Address: [address] [place] [address] Performed By: #### 2 4321-2, 15846-1, 47054-3, 2777-1 ####[facility] LABORATORYCLIA [id number] [address] Prealbumin [Mass/Vol]on 07-06 Prealbumin Nephelometry [Mass/Vol] 30 mg/dL Normal - [facility] Comment on above: Order Comment: Speci men Type: BLOOD SPECIMENOrdering Facility: [facility] Address: [address] [place] [address] Performed By: #### 2 4321-2, 52968-5, 94648-0, 2777-1 ####[facility] LABORATORYCLIA [id number] [address] THERAPY NTon 08-01-2021 THERAPY NT Normal [facility] THERAPY NT Normal [facility] TYPE AND SCREENon 08-01-2021 ABO O Normal [facility] Comment on above: Order Comment: Speci men Type: BLOOD SPECIMENOrdering Facility: [facility] Address: [address] [place] [address] Performed By: #### T SCR ####[facility] BLOOD BANKCLIA [id number] [address] [place] HISTORICAL AB SCR STATUS Negative Normal [facility] Comment on above: Order Comment: Speci men Type: BLOOD SPECIMENOrdering Facility: [facility] Address: [address] [place] [address] Performed By: #### T SCR ####[facility] BLOOD BANKCLIA [id number] [address] [place] Rh Nom (Bld) Positive Normal [facility] Comment on above: Order Comment: Speci men Type: BLOOD SPECIMENOrdering Facility: [facility] Address: [address] [place] [address] Performed By: #### T SCR ####[facility] BLOOD BANKCLIA [id number] [address] [place] [facility] TYPE AND SCREEN EXPIRATION 08/04/2021 23:59 Normal [facility] Comment on above: Order Comment: Speci men Type: BLOOD SPECIMENOrdering Facility: [facility] Address: [address] [place] [address] Performed By: #### T SCR ####[facility] BLOOD BANKCLIA [id number] [place] [address] [place] XR CHEST 1V FRONTALon 2021 XR CHEST 1V FRONTAL Normal [facility] aPTT PPPon 08-01-2021 aPTT Coag (PPP) [Time] 50.9 s High 23.0-32.4 [facility] Comment on above: Order Comment: Speci men Type: BLOOD SPECIMENOrdering Facility: [facility] Address: [address] [place] [address] Performed By: #### 1 4979-9 ####[facility] LABORATORYCLIA [id number] [address] [place] [facility] CBC W Auto Differential pane l (Bld)on 07-31-2021 Basophils (Bld) [#/Vol] 0.05 10*3/uL Normal <0.11 [facility] Comment on above: Order Comment: Speci men Type: BLOOD SPECIMENOrdering Facility: [facility] Address: [address] [place] [address] Performed By: #### 5 7021-8 ####[facility] LABORATORYCLIA [id number] [address] [place] Basophils/100 WBC (Bld) 0.4 % Normal [facility] Comment on above: Order Comment: Speci men Type: BLOOD SPECIMENOrdering Facility: [facility] Address: [address] [place] [address] Performed By: #### 5 7021-8 ####[facility] LABORATORYCLIA [id number] [address] [place] [facility] Differential cell count method Nom (Bld) Auto Normal [facility] Comment on above: Order Comment: Speci men Type: BLOOD SPECIMENOrdering Facility: [facility] Address: [address] [address] Performed By: #### 5 7021-8 ####[facility] LABORATORYCLIA [id number] [address] [place] Eosinophils (Bld) [#/Vol] 0.51 10*3/uL High <0.46 [facility] Comment on above: Order Comment: Speci men Type: BLOOD SPECIMENOrdering Facility: [facility] Address: [address] [place] [address] Performed By: #### 5 7021-8 ####[facility] LABORATORYCLIA [id number] [address] [place] Eosinophils/100 WBC (Bld) 4.5 % Normal [facility] Comment on above: Order Comment: Speci men Type: BLOOD SPECIMENOrdering Facility: [facility] Address: [address] [place] [address] Performed By: #### 5 7021-8 ####[facility] LABORATORYCLIA [id number] [address] [place] Erythrocyte distribution width (RBC) [Ratio] 17.5 % High 11.5-15.0 [facility] Comment on above: Order Comment: Speci men Type: BLOOD SPECIMENOrdering Facility: [facility] Address: [address] [place] [address] Performed By: #### 5 7021-8 ####[facility] LABORATORYCLIA [id number] [address] [place] Hematocrit (Bld) [Volume fraction] 30.4 % Low 39.0-51.0 [facility] Comment on above: Order Comment: Speci men Type: BLOOD SPECIMENOrdering Facility: [facility] Address: [address] [place] [address] Performed By: #### 5 7021-8 ####[facility] LABORATORYCLIA [id number] [address] Hemoglobin (Bld) [Mass/Vol] 9.2 g/dL Low 13.0-17.0 [facility] Comment on above: Order Comment: Speci men Type: BLOOD SPECIMENOrdering Facility: [facility] Address: [address] [place] [address] Performed By: #### 5 7021-8 ####[facility] LABORATORYCLIA [id number] [address] IMMATURE GRAN % 0.5 % Normal [facility] Comment on above: Order Comment: Speci men Type: BLOOD SPECIMENOrdering Facility: [facility] Address: [address] [place] [address] Performed By: #### 5 7021-8 ####[facility] LABORATORYCLIA [id number] [address] IMMATURE GRAN ABS 0.06 k/uL Normal <0.10 [facility] Comment on above: Order Comment: Speci men Type: BLOOD SPECIMENOrdering Facility: [facility] Address: [address] [place] [address] Performed By: #### 5 7021-8 ####[facility] LABORATORYCLIA [id number] [address] [place] Lymphocytes (Bld) [#/Vol] 1.99 10*3/uL Normal 1.00-4.00 [facility] Comment on above: Order Comment: Speci men Type: BLOOD SPECIMENOrdering Facility: [facility] Address: [address] [place] [address] Performed By: #### 5 7021-8 ####[facility] LABORATORYCLIA [id number] [address] Lymphocytes/100 WBC (Bld) 17.6 % Normal [facility] Comment on above: Order Comment: Speci men Type: BLOOD SPECIMENOrdering Facility: [facility] Address: [address] [place] [address] Performed By: #### 5 7021-8 ####[facility] LABORATORYCLIA [id number] [address] [place] [facility] MCH (RBC) [Entitic mass] 28.4 pg Normal 26.0-34.0 [facility] Comment on above: Order Comment: Speci men Type: BLOOD SPECIMENOrdering Facility: [facility] Address: [address] [place] [address] Performed By: #### 5 7021-8 ####[facility] LABORATORYCLIA [id number] [address] [place] [facility] MCHC (RBC) [Mass/Vol] 30.3 g/dL Low 30.5-36.0 [facility] Comment on above: Order Comment: Speci men Type: BLOOD SPECIMENOrdering Facility: [facility] Address: [address] [place] [address] Performed By: #### 5 7021-8 ####[facility] LABORATORYCLIA [id number] [address] MCV (RBC) [Entitic vol] 93.8 fL Normal 80.0-100.0 [facility] Comment on above: Order Comment: Speci men Type: BLOOD SPECIMENOrdering Facility: [facility] Address: [address] [place] [address] Performed By: #### 5 7021-8 ####[facility] LABORATORYCLIA [id number] [address] Monocytes (Bld) [#/Vol] 0.57 10*3/uL Normal <0.87 [facility] Comment on above: Order Comment: Speci men Type: BLOOD SPECIMENOrdering Facility: [facility] Address: [address] [place] [address] Performed By: #### 5 7021-8 ####[facility] LABORATORYCLIA [id number] [address] Monocytes/100 WBC (Bld) 5.0 % Normal [facility] Comment on above: Order Comment: Speci men Type: BLOOD SPECIMENOrdering Facility: [facility] Address: [address] [place] [address] Performed By: #### 5 7021-8 ####[facility] LABORATORYCLIA [id number] [address] [place] [facility] Neutrophils (Bld) [#/Vol] 8.12 10*3/uL High 1.45-7.50 [facility] Comment on above: Order Comment: Speci men Type: BLOOD SPECIMENOrdering Facility: [facility] Address: [address] [place] [address] Performed By: #### 5 7021-8 ####[facility] LABORATORYCLIA [id number] [address] [place] [facility] Neutrophils/100 WBC (Bld) 72.0 % Normal [facility] Comment on above: Order Comment: Speci men Type: BLOOD SPECIMENOrdering Facility: [facility] Address: [address] [place] [address] Performed By: #### 5 7021-8 ####[facility] LABORATORYCLIA [id number] [address] [place] Nucleated RBC (Bld) [#/Vol] 10*3/uL Normal <0.01 [facility] Comment on above: Order Comment: Speci men Type: BLOOD SPECIMENOrdering Facility: [facility] Address: [address] [place] [address] Performed By: #### 5 7021-8 ####[facility] LABORATORYCLIA [id number] [address] [place] Nucleated RBC/100 WBC (Bld) [Ratio] 0.0 /100 WBC Normal [facility] Comment on above: Order Comment: Speci men Type: BLOOD SPECIMENOrdering Facility: [facility] Address: [address] [place] [address] Performed By: #### 5 7021-8 ####[facility] LABORATORYCLIA [id number] [address] [place] Platelet mean volume (Bld) [Entitic vol] 10.9 fL Normal 9.0-12.7 [facility] Comment on above: Order Comment: Speci men Type: BLOOD SPECIMENOrdering Facility: [facility] Address: [address] [place] [address] Performed By: #### 5 7021-8 ####[facility] LABORATORYCLIA [id number] [address] Platelets (Bld) [#/Vol] 303 10*3/uL Normal 150-400 [facility] Comment on above: Order Comment: Speci men Type: BLOOD SPECIMENOrdering Facility: [facility] Address: [address] [place] [address] Performed By: #### 5 7021-8 ####[facility] LABORATORYCLIA [id number] [address] [place] RBC (Bld) [#/Vol] 3.24 10*6/uL Low 4.20-6.00 [facility] Comment on above: Order Comment: Speci men Type: BLOOD SPECIMENOrdering Facility: [facility] Address: [address] [place] [address] Performed By: #### 5 7021-8 ####[facility] LABORATORYCLIA [id number] [address] [place] [facility] WBC (Bld) [#/Vol] 11.30 10*3/uL High 3.70-11.00 [facility] Comment on above: Order Comment: Speci men Type: BLOOD SPECIMENOrdering Facility: [facility] Address: [address] [place] [address] Performed By: #### 5 7021-8 ####[facility] LABORATORYCLIA [id number] [address] [place] NURSING PROGon 07-31-2021 NURSING PROG Normal [facility] aPTT PPPon 07-31-2021 aPTT Coag (PPP) [Time] 64.9 s High 23.0-32.4 [facility] Comment on above: Order Comment: Speci men Type: BLOOD SPECIMENOrdering Facility: [facility] Address: [address] [place] [address] Performed By: #### 1 4979-9 ####[facility] LABORATORYCLIA [id number] [place] [address] [place] ALLIED HEALTHon 07-30-2021 ALLIED HEALTH Normal [facility] Bacteria CSF Culton 07-31-19 22 Bacteria identified Cx Nom (CSF) CULTURE, CSF: No growth 14 days GRAM STAIN: No organisms seen Few Mononuclear cells Rare Polymorphonuclear leukocytes Gram stain performed on cytospun specimen. Normal [facility] Comment on above: Performed By: #### 6 06-4 ####[facility] LABORATORYCLIA [id number] [place] [address] [place] Basic metabolic 2000 panelon 07-30-2021 Anion gap [Moles/Vol] 9 mmol/L Normal 9-18 [facility] Comment on above: Order Comment: Speci men Type: BLOOD SPECIMENOrdering Facility: [facility] Address: [address] [place] [address] Performed By: #### 2 777-1, 84720-9, ####[facility] LABORATORYCLIA [id number] [place] [address] [place] Calcium [Mass/Vol] 8.9 mg/dL Normal 8.5-10.2 [facility] Comment on above: Order Comment: Speci men Type: BLOOD SPECIMENOrdering Facility: [facility] Address: [address] [place] [address] Performed By: #### 2 777-1, 49024-1, ####[facility] LABORATORYCLIA [id number] [place] [address] [place] Chloride [Moles/Vol] 95 mmol/L Low 97-105 [facility] Comment on above: Order Comment: Speci men Type: BLOOD SPECIMENOrdering Facility: [facility] Address: [address] [place] [address] Performed By: #### 2 777-1, , ####[facility] LABORATORYCLIA [id number] [place] [address] [place] CO2 [Moles/Vol] 28 mmol/L Normal 22-30 [facility] Comment on above: Order Comment: Speci men Type: BLOOD SPECIMENOrdering Facility: [facility] Address: [address] [place] [address] Performed By: #### 2 777-1, , ####[facility] LABORATORYCLIA [id number] [place] [address] [place] [facility] Creatinine [Mass/Vol] 0.67 mg/dL Low 0.73-1.22 [facility] Comment on above: Order Comment: Speci men Type: BLOOD SPECIMENOrdering Facility: [facility] Address: [address] [place] [address] Performed By: #### 2 777-1, , ####[facility]REMENCLIA [id number] [address] [place] [facility] ESTIMATED GLOMERULAR FILTRATION RATE 101 mL/min/1.73m??? Normal >=60 [facility] Comment on above: Order Comment: Speci men Type: BLOOD SPECIMENOrdering Facility: [facility] Address: [address] [place] [address] Result Comment: Luzmaria mated Glomerular Filtration Rate [...] GFR. Performed By: #### 2 777-1, , ####[facility] LABORATORYCLIA [id number] [place] [address] [place] Glucose [Mass/Vol] 125 mg/dL High 74-99 [facility] Comment on above: Order Comment: Shira feldman Type: BLOOD SPECIMENOrdering Facility: [facility] Address: [address] [place], [place] [id number] Result Comment: The [place] [employer] (ADA) provides guidance for cutoff [...] Standards of Medical Care in Diabetes 2016, [place] [employer]. Diabetes Care. 2016.39(Suppl 1). Performed By: #### 2 777-1, 46133-0, ####[facility] LABORATORYCLIA [id number] [place] [address] [place] Potassium [Moles/Vol] 3.9 mmol/L Normal 3.7-5.1 [facility] Comment on above: Order Comment: Shira feldman Type: BLOOD SPECIMENOrdering Facility: [facility] Address: [address] [place], [place] [address] Performed By: #### 2 777-1, 74718-4, ####[facility] LABORATORYCLIA [id number] [place] [address] [place] Sodium [Moles/Vol] 132 mmol/L Low 136-144 [facility] Comment on above: Order Comment: Shira feldman Type: BLOOD SPECIMENOrdering Facility: [facility] Address: [address] [place], [place] [phone] Performed By: #### 2 777-1, , ####[facility] LABORATORYCLIA [id number] [place] [address] [place] Urea nitrogen [Mass/Vol] 38 mg/dL High 9-24 [facility] Comment on above: Order Comment: Speci men Type: BLOOD SPECIMENOrdering Facility: [facility] Address: [address] [place] [address] Performed By: #### 2 777-1, 43021-8, 91069-9 ####[facility] LABORATORYCLIA [id number] [address] [place] CBC W Auto Differential pane l (Bld)on 07-30-2021 Basophils (Bld) [#/Vol] 0.04 10*3/uL Normal <0.11 [facility] Comment on above: Order Comment: Speci men Type: BLOOD SPECIMENOrdering Facility: [facility] Address: [address] [place] [address] Performed By: #### 5 7021-8 ####[facility] LABORATORYCLIA [id number] [address] [place] Basophils/100 WBC (Bld) 0.4 % Normal [facility] Comment on above: Order Comment: Speci men Type: BLOOD SPECIMENOrdering Facility: [facility] Address: [address] [place] [address] Performed By: #### 5 7021-8 ####[facility] LABORATORYCLIA [id number] [address] Differential cell count method Nom (Bld) Auto Normal [facility] Comment on above: Order Comment: Speci men Type: BLOOD SPECIMENOrdering Facility: [facility] Address: [address] [place] [address] Performed By: #### 5 7021-8 ####[facility]ORATORYCLIA [id number] [address] [place] Eosinophils (Bld) [#/Vol] 0.30 10*3/uL Normal <0.46 [facility] Comment on above: Order Comment: Speci men Type: BLOOD SPECIMENOrdering Facility: [facility] Address: [address] [place] [address] Performed By: #### 5 7021-8 ####[facility]ORATORYCLIA [id number] [address] Eosinophils/100 WBC (Bld) 2.7 % Normal [facility] Comment on above: Order Comment: Speci men Type: BLOOD SPECIMENOrdering Facility: [facility] Address: [address] [place] [address] Performed By: #### 5 7021-8 ####[facility] LABORATORYCLIA [id number] [address] Erythrocyte distribution width (RBC) [Ratio] 17.2 % High 11.5-15.0 [facility] Comment on above: Order Comment: Speci men Type: BLOOD SPECIMENOrdering Facility: [facility] Address: [address] [place] [address] Performed By: #### 5 7021-8 ####[facility] LABORATORYCLIA [id number] [address] Hematocrit (Bld) [Volume fraction] 30.8 % Low 39.0-51.0 [facility] Comment on above: Order Comment: Speci men Type: BLOOD SPECIMENOrdering Facility: [facility] Address: [address] [place] [address] Performed By: #### 5 7021-8 ####[facility] LABORATORYCLIA [id number] [address] [place] Hemoglobin (Bld) [Mass/Vol] 9.4 g/dL Low 13.0-17.0 [facility] Comment on above: Order Comment: Speci men Type: BLOOD SPECIMENOrdering Facility: [facility] Address: [address] [place] [address] Performed By: #### 5 7021-8 ####[facility] LABORATORYCLIA [id number] [address] IMMATURE GRAN % 0.5 % Normal [facility] Comment on above: Order Comment: Speci men Type: BLOOD SPECIMENOrdering Facility: [facility] Address: [address] [place] [address] Performed By: #### 5 7021-8 ####[facility] LABORATORYCLIA [id number] [address] IMMATURE GRAN ABS 0.06 k/uL Normal <0.10 [facility] Comment on above: Order Comment: Speci men Type: BLOOD SPECIMENOrdering Facility: [facility] Address: [address] [place] [address] Performed By: #### 5 7021-8 ####[facility] LABORATORYCLIA [id number] [address] Lymphocytes (Bld) [#/Vol] 1.68 10*3/uL Normal 1.00-4.00 [facility] Comment on above: Order Comment: Speci men Type: BLOOD SPECIMENOrdering Facility: [facility] Address: [address] [place] [address] Performed By: #### 5 7021-8 ####[facility] LABORATORYCLIA [id number] [address] Lymphocytes/100 WBC (Bld) 15.3 % Normal [facility] Comment on above: Order Comment: Speci men Type: BLOOD SPECIMENOrdering Facility: [facility] Address: [address] [place] [address] Performed By: #### 5 7021-8 ####[facility] LABORATORYCLIA [id number] [address] MCH (RBC) [Entitic mass] 28.0 pg Normal 26.0-34.0 [facility] Comment on above: Order Comment: Speci men Type: BLOOD SPECIMENOrdering Facility: [facility] Address: [address] [place] [address] Performed By: #### 5 7021-8 ####[facility] LABORATORYCLIA [id number] [address] [place] MCHC (RBC) [Mass/Vol] 30.5 g/dL Normal 30.5-36.0 [facility] Comment on above: Order Comment: Speci men Type: BLOOD SPECIMENOrdering Facility: [facility] Address: [address] [place] [address] Performed By: #### 5 7021-8 ####[facility] LABORATORYCLIA [id number] [address] [place] MCV (RBC) [Entitic vol] 91.7 fL Normal 80.0-100.0 [facility] Comment on above: Order Comment: Speci men Type: BLOOD SPECIMENOrdering Facility: [facility] Address: [address] [place] [address] Performed By: #### 5 7021-8 ####[facility] LABORATORYCLIA [id number] [address] [place] Monocytes (Bld) [#/Vol] 0.53 10*3/uL Normal <0.87 [facility] Comment on above: Order Comment: Speci men Type: BLOOD SPECIMENOrdering Facility: [facility] Address: [address] [place] [address] Performed By: #### 5 7021-8 ####[facility] LABORATORYCLIA [id number] [address] [place] Monocytes/100 WBC (Bld) 4.8 % Normal [facility] Comment on above: Order Comment: Speci men Type: BLOOD SPECIMENOrdering Facility: [facility] Address: [address] [place] [address] Performed By: #### 5 7021-8 ####[facility] LABORATORYCLIA [id number] [address] [place] Neutrophils (Bld) [#/Vol] 8.39 10*3/uL High 1.45-7.50 [facility] Comment on above: Order Comment: Speci men Type: BLOOD SPECIMENOrdering Facility: [facility] Address: [address] [place] [address] Performed By: #### 5 7021-8 ####[facility] LABORATORYCLIA [id number] [address] Neutrophils/100 WBC (Bld) 76.3 % Normal [facility] Comment on above: Order Comment: Speci men Type: BLOOD SPECIMENOrdering Facility: [facility] Address: [address] [address] Performed By: #### 5 7021-8 ####[facility] LABORATORYCLIA [id number] [address] [place] Nucleated RBC (Bld) [#/Vol] 10*3/uL Normal <0.01 [facility] Comment on above: Order Comment: Speci men Type: BLOOD SPECIMENOrdering Facility: [facility] Address: [facility] [address] Performed By: #### 5 7021-8 ####[facility] LABORATORYCLIA [id number] [address] [place] Nucleated RBC/100 WBC (Bld) [Ratio] 0.0 /100 WBC Normal [facility] Comment on above: Order Comment: Speci men Type: BLOOD SPECIMENOrdering Facility: [facility] Address: [address] [place] [address] Performed By: #### 5 7021-8 ####[facility] LABORATORYCLIA [id number] [address] [place] Platelet mean volume (Bld) [Entitic vol] 10.9 fL Normal 9.0-12.7 [facility] Comment on above: Order Comment: Speci men Type: BLOOD SPECIMENOrdering Facility: [facility] Address: [address] [address] Performed By: #### 5 7021-8 ####[facility] LABORATORYCLIA [id number] [address] [place] Platelets (Bld) [#/Vol] 287 10*3/uL Normal 150-400 [facility] Comment on above: Order Comment: Speci men Type: BLOOD SPECIMENOrdering Facility: [facility] Address: [address] [place] [address] Performed By: #### 5 7021-8 ####[facility] LABORATORYCLIA [id number] [address] OF [facility] RBC (Bld) [#/Vol] 3.36 10*6/uL Low 4.20-6.00 [facility] Comment on above: Order Comment: Speci men Type: BLOOD SPECIMENOrdering Facility: [facility] Address: [address] [place] [address] Performed By: #### 5 7021-8 ####[facility] LABORATORYCLIA [id number] [address] WBC (Bld) [#/Vol] 11.00 10*3/uL Normal 3.70-11.00 [facility] Comment on above: Order Comment: Speci men Type: BLOOD SPECIMENOrdering Facility: [facility] Address: [address] [place] [address] Performed By: #### 5 7021-8 ####[facility] LABORATORYCLIA [id number] [address] CSF MANUAL DIFFon 07-30-2021 DIF TTL, CSF 100 cells counted Normal [facility] Comment on above: Order Comment: Speci men Type: CEREBROSPINAL FLUIDOrdering Facility: [facility] Address: [address] [place] [address] Performed By: #### L [id number], [id number], 17700-0 ####[facility] LABORATORYCLIA [id number] [address] EOSIN%, CSF 0 % Normal [facility] Comment on above: Order Comment: Speci men Type: CEREBROSPINAL FLUIDOrdering Facility: [facility] Address: [address] [place] [address] Performed By: #### L [id number], [id number], 48339-4 ####[facility] LABORATORYCLIA [id number] [address] [place] LYMPH%, CSF 75 % Normal 50-90 [facility] Comment on above: Order Comment: Speci men Type: CEREBROSPINAL FLUIDOrdering Facility: [facility] Address: [address] [place] [address] Performed By: #### L [id number], PLV6715, 24992-4 ####[facility]ORATORYCLIA [id number] [place] [address] [place] MACRO%, CSF 9 % High <1 [facility] Comment on above: Order Comment: Speci men Type: CEREBROSPINAL FLUIDOrdering Facility: [facility] Address: [address] [place] [address] Performed By: #### L [id number], [id number], 53093-6 ####[facility]ORATORYCLIA [id number] [place] [address] [place] MONO%, CSF 10 % Normal 10-50 [facility] Comment on above: Order Comment: Speci men Type: CEREBROSPINAL FLUIDOrdering Facility: [facility] Address: [address] [place] [address] Performed By: #### L [id number], [id number], 53030-7 ####[facility]ORATORYCLIA [id number] [address] [place] OTHER CL%, CSF 4 % Normal [facility] Comment on above: Order Comment: Speci men Type: CEREBROSPINAL FLUIDOrdering Facility: [facility] Address: [address] [place] [address] Result Comment: Path review to follow. Performed By: #### L [id number], IFK3584, 45845-3 ####[facility]ORATORYCLIA [id number] [place] [address] [place] REAC LYMPH %, CSF 2 % Normal [facility] Comment on above: Order Comment: Speci men Type: CEREBROSPINAL FLUIDOrdering Facility: [facility] Address: [address] [place] [address] Performed By: #### L [id number], [id number], 33957-3 ####[facility]ORATORYCLIA [id number] [address] CSF PATHOLOGIST INTERP (LAB REFLEX ORDER-NO BILL)on 07-30-2021 CSF STAFF REVIEW Negative Normal [facility] Comment on above: Order Comment: Speci men Type: CEREBROSPINAL FLUIDOrdering Facility: [facility] Address: [address] [place] [address] Performed By: #### L [id number], WSD5528, 22254-8 ####[facility] LABORATORYCLIA [id number] [address] Pathologist name Reviewed by Eloise rebolledo MD [facility] Comment on above: Order Comment: Speci men Type: CEREBROSPINAL FLUIDOrdering Facility: [facility] Address: [address] [place] [address] Performed By: #### L [id number], CRX9285, 62317-6 ####[facility] LABORATORYCLIA [id number] [address] BRAIN WO IVCONon 07-31-[address] BRAIN WO IVCON Normal [facility] Cell count panel (CSF)on Clarity (CSF) Clear Normal Clear [facility] Comment on above: Order Comment: Speci men Type: CEREBROSPINAL FLUIDOrdering Facility: [facility] Address: [address] [place] [address] Performed By: #### L [id number], ZTG4523, 52734-1 ####[facility] LABORATORYCLIA [id number] [address] OF [facility] Clarity (Unsp spec) Clear Normal Clear [facility] Comment on above: Order Comment: Speci men Type: CEREBROSPINAL FLUIDOrdering Facility: [facility] Address: [address] [place] [address] Performed By: #### L [id number], WCC2915, 42423-4 ####[facility]ORATORYCLIA [id number] [address] Color (CSF) Colorless Normal Colorless [facility] Comment on above: Order Comment: Speci men Type: CEREBROSPINAL FLUIDOrdering Facility: [facility] Address: [address] [place] [address] Performed By: #### L [id number], CKE9807, 61757-6 ####[facility]ATORYCLIA [id number] [address] Color (Spun CSF) Colorless Normal Colorless [facility] Comment on above: Order Comment: Speci men Type: CEREBROSPINAL FLUIDOrdering Facility: [facility] Address: [address] [place] [address] Performed By: #### L [id number], EXR0207, 68712-6 ####[facility] LABORATORYCLIA [id number] [address] CSF TUBE [employer] Normal [facility] Comment on above: Order Comment: Speci men Type: CEREBROSPINAL FLUIDOrdering Facility: [facility] Address: [address] [place] [address] Performed By: #### L [id number], DWD0405, 53465-1 ####[facility] LABORATORYCLIA [id number] [address] RBC Manual cnt (CSF) [#/Vol] 9 cells/uL High 0-5 [facility] Comment on above: Order Comment: Speci men Type: CEREBROSPINAL FLUIDOrdering Facility: [facility] Address: [address] [place] [address] Performed By: #### L [id number], BJK3265, 48773-1 ####[facility] LABORATORYCLIA [id number] [address] WBC Manual cnt (CSF) [#/Vol] 8 cells/uL High 0-5 [facility] Comment on above: Order Comment: Speci men Type: CEREBROSPINAL FLUIDOrdering Facility: [facility] Address: [address] [place] [address] Performed By: #### L [id number], [id number], 66861-8 ####[facility]ORATORYCLIA [id number] [address] OF [facility] Glucose CSF-mCncon Glucose (CSF) [Mass/Vol] 65 mg/dL Normal 40-70 [facility] Comment on above: Order Comment: Speci men Type: CEREBROSPINAL FLUIDOrdering Facility: [facility] Address: [address] [place] [address] Result Comment: Lumb ar CSF glucose values of healthy patients are approximately 60% of the plasma values and must always be compared with a concurrently measured plasma value for adequate clinical interpretation.References: 1. Glucose HK (GLUC3) [package insert V 12.0 Kazakh]. [employer], [place], [place]. September 2015. 2. Michelle Moore, Loki H. (2015). Chapter 7: Glucose and Lactate. Marianela Rothman.(eds.), Cerebrospinal Fluid in Clinical Neurology. [place]ck[place]: goodideazs. Performed By: #### 2 342-4, 2880-3 ####[facility] LABORATORYCLIA [id number] [address] Magnesium [facility] 07-30 Magnesium [Mass/Vol] 2.5 mg/dL High 1.7-2.3 [facility] Comment on above: Order Comment: Speci men Type: BLOOD SPECIMENOrdering Facility: [facility] Address: [address] [place] [address] Performed By: #### 2 777-1, 40712-5, 37882-5 ####[facility] LABORATORYCLIA [id number] [address] [place] NURSING PROGon 07-30-2021 NURSING PROG Normal [facility] Phosphate SerPl-ncon 07-30 Phosphate [Mass/Vol] 2.4 mg/dL Low 2.7-4.8 [facility] Comment on above: Order Comment: Speci men Type: BLOOD SPECIMENOrdering Facility: [facility] Address: [address] [place] [address] Performed By: #### 2 777-1, 04843-9, 04488-2 ####[facility] LABORATORYCLIA [id number] [place] [address] [place] Prot CSF-mCncon 07-30-2021 Protein (CSF) [Mass/Vol] 50 mg/dL High 15-45 [facility] Comment on above: Order Comment: Speci men Type: CEREBROSPINAL FLUIDOrdering Facility: [facility] Address: [address] [place] [address] Performed By: #### 2 342-4, 2880-3 ####[facility] LABORATORYCLIA [id number] [address] [place] aPTT PPPon 07-30-2021 aPTT Coag (PPP) [Time] 64.1 s High 23.0-32.4 [facility] Comment on above: Order Comment: Speci men Type: BLOOD SPECIMENOrdering Facility: [facility] Address: [address] [place] [address] Performed By: #### 1 4979-9 ####[facility]REMENCLIA [id number] [address] [place] Bacteria CSF Culton 07-30-19 22 Bacteria identified Cx Nom (CSF) CULTURE, CSF: No growth 14 days GRAM STAIN: No cells or organisms seen Gram stain performed on cytospun specimen. Gram stain confirmed by microbiology Normal [facility] Comment on above: Performed By: #### 6 06-4 ####[facility] LABORATORYCLIA [id number] [address] [place] CASE MANAGEMon 07-29-2021 CASE MANAGEM Normal [facility] CBC W Auto Differential pane l (Bld)on 07-29-2021 Basophils (Bld) [#/Vol] 0.03 10*3/uL Normal <0.11 [facility] Comment on above: Order Comment: Speci men Type: BLOOD SPECIMENOrdering Facility: [facility] Address: [address] [place] [address] Performed By: #### 5 7021-8 ####[facility]ORATORYCLIA [id number] [address] [place] Basophils/100 WBC (Bld) 0.3 % Normal [facility] Comment on above: Order Comment: Speci men Type: BLOOD SPECIMENOrdering Facility: [facility] Address: [address] [place] [address] Performed By: #### 5 7021-8 ####[facility] LABORATORYCLIA [id number] [address] [place] Differential cell count method Nom (Bld) Auto Normal [facility] Comment on above: Order Comment: Speci men Type: BLOOD SPECIMENOrdering Facility: [facility] Address: [address] [place] [address] Performed By: #### 5 7021-8 ####[facility]ORATORYCLIA [id number] [address] [place] Eosinophils (Bld) [#/Vol] 0.40 10*3/uL Normal <0.46 [facility] Comment on above: Order Comment: Speci men Type: BLOOD SPECIMENOrdering Facility: [facility] Address: [address] [place] [address] Performed By: #### 5 7021-8 ####[facility] LABORATORYCLIA [id number] [address] Eosinophils/100 WBC (Bld) 3.9 % Normal [facility] Comment on above: Order Comment: Speci men Type: BLOOD SPECIMENOrdering Facility: [facility] Address: [address] [place] [address] Performed By: #### 5 7021-8 ####[facility] LABORATORYCLIA [id number] [address] [place] Erythrocyte distribution width (RBC) [Ratio] 17.1 % High 11.5-15.0 [facility] Comment on above: Order Comment: Speci men Type: BLOOD SPECIMENOrdering Facility: [facility] Address: [address] [place] [address] Performed By: #### 5 7021-8 ####[facility]ORATORYCLIA [id number] [address] Hematocrit (Bld) [Volume fraction] 32.0 % Low 39.0-51.0 [facility] Comment on above: Order Comment: Speci men Type: BLOOD SPECIMENOrdering Facility: [facility] Address: [address] [place] [address] Performed By: #### 5 7021-8 ####[facility]ORATORYCLIA [id number] [address] Hemoglobin (Bld) [Mass/Vol] 9.7 g/dL Low 13.0-17.0 [facility] Comment on above: Order Comment: Speci men Type: BLOOD SPECIMENOrdering Facility: [facility] Address: [address] [place] [address] Performed By: #### 5 7021-8 ####[facility]ORATORYCLIA [id number] [address] IMMATURE GRAN % 0.6 % Normal [facility] Comment on above: Order Comment: Speci men Type: BLOOD SPECIMENOrdering Facility: [facility] Address: [address] [place] [address] Performed By: #### 5 7021-8 ####[facility] LABORATORYCLIA [id number] [address] IMMATURE GRAN ABS 0.06 k/uL Normal <0.10 [facility] Comment on above: Order Comment: Speci men Type: BLOOD SPECIMENOrdering Facility: [facility] Address: [address] [place] [address] Performed By: #### 5 7021-8 ####[facility]ORATORYCLIA [id number] [address] Lymphocytes (Bld) [#/Vol] 1.96 10*3/uL Normal 1.00-4.00 [facility] Comment on above: Order Comment: Speci men Type: BLOOD SPECIMENOrdering Facility: [facility] Address: [address] [place] [address] Performed By: #### 5 7021-8 ####[facility]ORATORYCLIA [id number] [address] Lymphocytes/100 WBC (Bld) 19.0 % Normal [facility] Comment on above: Order Comment: Speci men Type: BLOOD SPECIMENOrdering Facility: [facility] Address: [address] [place] [address] Performed By: #### 5 7021-8 ####[facility]ORATORYCLIA [id number] [address] MCH (RBC) [Entitic mass] 28.0 pg Normal 26.0-34.0 [facility] Comment on above: Order Comment: Speci men Type: BLOOD SPECIMENOrdering Facility: [facility] Address: [address] [place] [address] Performed By: #### 5 7021-8 ####[facility]ORATORYCLIA [id number] [address] MCHC (RBC) [Mass/Vol] 30.3 g/dL Low 30.5-36.0 [facility] Comment on above: Order Comment: Speci men Type: BLOOD SPECIMENOrdering Facility: [facility] Address: [address] [place] [address] Performed By: #### 5 7021-8 ####[facility]ORATORYCLIA [id number] [address] MCV (RBC) [Entitic vol] 92.5 fL Normal 80.0-100.0 [facility] Comment on above: Order Comment: Speci men Type: BLOOD SPECIMENOrdering Facility: [facility] Address: [address] [place] [address] Performed By: #### 5 7021-8 ####[facility]ORATORYCLIA [id number] [address] Monocytes (Bld) [#/Vol] 0.53 10*3/uL Normal <0.87 [facility] Comment on above: Order Comment: Speci men Type: BLOOD SPECIMENOrdering Facility: [facility] Address: [address] [place] [address] Performed By: #### 5 7021-8 ####[facility] LABORATORYCLIA [id number] [address] [place] Monocytes/100 WBC (Bld) 5.2 % Normal [facility] Comment on above: Order Comment: Speci men Type: BLOOD SPECIMENOrdering Facility: [facility] Address: [address] [place] [address] Performed By: #### 5 7021-8 ####[facility] LABORATORYCLIA [id number] [address] [place] Neutrophils (Bld) [#/Vol] 7.31 10*3/uL Normal 1.45-7.50 [facility] Comment on above: Order Comment: Speci men Type: BLOOD SPECIMENOrdering Facility: [facility] Address: [address] [place] [address] Performed By: #### 5 7021-8 ####[facility]ORATORYCLIA [id number] [address] [place] Neutrophils/100 WBC (Bld) 71.0 % Normal [facility] Comment on above: Order Comment: Speci men Type: BLOOD SPECIMENOrdering Facility: [facility] Address: [address] [place] [address] Performed By: #### 5 7021-8 ####[facility]ORATORYCLIA [id number] [place] [address] [place] Nucleated RBC (Bld) [#/Vol] 10*3/uL Normal <0.01 [facility] Comment on above: Order Comment: Speci men Type: BLOOD SPECIMENOrdering Facility: [facility] Address: [address] [place] [address] Performed By: #### 5 7021-8 ####[facility]ORATORYCLIA [id number] [place] [address] [place] Nucleated RBC/100 WBC (Bld) [Ratio] 0.0 /100 WBC Normal [facility] Comment on above: Order Comment: Speci men Type: BLOOD SPECIMENOrdering Facility: [facility] Address: [address] [place] [address] Performed By: #### 5 7021-8 ####[facility]ORATORYCLIA [id number] [place] [address] [place] Platelet mean volume (Bld) [Entitic vol] 11.2 fL Normal 9.0-12.7 [facility] Comment on above: Order Comment: Speci men Type: BLOOD SPECIMENOrdering Facility: [facility] Address: [address] [place] [address] Performed By: #### 5 7021-8 ####[facility]ORATORYCLIA [id number] [address] [place] Platelets (Bld) [#/Vol] 276 10*3/uL Normal 150-400 [facility] Comment on above: Order Comment: Speci men Type: BLOOD SPECIMENOrdering Facility: [facility] Address: [address] [place] [address] Performed By: #### 5 7021-8 ####[facility]ORATORYCLIA [id number] [place] [address] [place] RBC (Bld) [#/Vol] 3.46 10*6/uL Low 4.20-6.00 [facility] Comment on above: Order Comment: Speci men Type: BLOOD SPECIMENOrdering Facility: [facility] Address: [address] [place] [address] Performed By: #### 5 7021-8 ####[facility]ORATORYCLIA [id number] [address] [place] WBC (Bld) [#/Vol] 10.29 10*3/uL Normal 3.70-11.00 [facility] Comment on above: Order Comment: Speci men Type: BLOOD SPECIMENOrdering Facility: [facility] Address: [address] [place] [address] Performed By: #### 5 7021-8 ####[facility]ORATORYCLIA [id number] [address] OF [facility] NURSING PROGon 07-29-2021 NURSING PROG Normal [facility] THERAPY NTon 07-29-2021 THERAPY NT Normal [facility] aPTT PPPon 07-29-2021 aPTT Coag (PPP) [Time] 59.2 s High 23.0-32.4 [facility] Comment on above: Order Comment: Speci men Type: BLOOD SPECIMENOrdering Facility: [facility] Address: [address] [place] [address] Performed By: #### 1 4979-9 ####[facility]ORATORYCLIA [id number] [address] STATES OF [facility] ALLIED HEALTHon 07-28-2021 ALLIED HEALTH Normal [facility] Basic metabolic 2000 panelon 07-28-2021 Anion gap [Moles/Vol] 7 mmol/L Low 9-18 [facility] Comment on above: Order Comment: Speci men Type: BLOOD SPECIMENOrdering Facility: [facility] Address: [address] [place] [address] Performed By: #### 1 4338-8, 35536-9, 2777-1, 46426-3 ####[facility]ORATORYCLIA [id number] [place] [address] [place] Calcium [Mass/Vol] 9.0 mg/dL Normal 8.5-10.2 [facility] Comment on above: Order Comment: Speci men Type: BLOOD SPECIMENOrdering Facility: [facility] Address: [address] [place] [address] Performed By: #### 1 4338-8, 93892-4, 2777-1, 62444-3 ####[facility]ORATORYCLIA [id number] [address] [place] Chloride [Moles/Vol] 94 mmol/L Low 97-105 [facility] Comment on above: Order Comment: Speci men Type: BLOOD SPECIMENOrdering Facility: [facility] Address: [address] [place] [address] Performed By: #### 1 4338-8, 03977-2, 2777-1, 94096-1 ####[facility]ORATORYCLIA [id number] [place] [address] [place] [facility] CO2 [Moles/Vol] 31 mmol/L High 22-30 [facility] Comment on above: Order Comment: Speci men Type: BLOOD SPECIMENOrdering Facility: [facility] Address: [address] [place] [address] Performed By: #### 1 4338-8, 86236-7, 2777-1, 13162-0 ####[facility]ORATORYCLIA [id number] [address] STATES OF [facility] Creatinine [Mass/Vol] 0.75 mg/dL Normal 0.73-1.22 [facility] Comment on above: Order Comment: Speci men Type: BLOOD SPECIMENOrdering Facility: [facility] Address: [address] [place] [address] Performed By: #### 1 4338-8, 47885-7, 2777-1, 72030-3 ####[facility]ORATORYCLIA [id number] [address] [facility] ESTIMATED GLOMERULAR FILTRATION RATE 98 mL/min/1.73m??? Normal >=60 [facility] Comment on above: Order Comment: Speci men Type: BLOOD SPECIMENOrdering Facility: [facility] Address: [address] [place] [address] Result Comment: Luzmaria mated Glomerular Filtration Rate [...] actual GFR. Performed By: #### 1 4338-8, 90176-6, 2777-1, 34497-1 ####[facility]ORATORYCLIA [id number] [place] [address] [place] Glucose [Mass/Vol] 122 mg/dL High 74-99 [facility] Comment on above: Order Comment: Speci men Type: BLOOD SPECIMENOrdering Facility: [facility] Address: [address] [id number] Result Comment: The [place] Diabetes [employer] (ADA) provides guidance for cutoff [...] Standards of Medical Care in Diabetes 2016, [place] [employer]. Diabetes Care. 2016.39(Suppl 1). Performed By: #### 1 4338-8, 49510-6, 2776-05, 31553-3 ####[facility]ORATORYCLIA [id number] [place] [address] [place] Potassium [Moles/Vol] 4.0 mmol/L Normal 3.7-5.1 [facility] Comment on above: Order Comment: Speci men Type: BLOOD SPECIMENOrdering Facility: [facility] Address: [address] [place] [address] Performed By: #### 1 4338-8, 33633-6, 277-, 34000-0 ####[facility]ORATORYCLIA [id number] [place] [address] [place] Sodium [Moles/Vol] 132 mmol/L Low 136-144 [facility] Comment on above: Order Comment: Speci men Type: BLOOD SPECIMENOrdering Facility: [facility] Address: [address] [address] Performed By: #### 1 4338-8, 89535-4, 2777-1, 10527-7 ####[facility]ORATORYCLIA [id number] [address] STATES [facility] Urea nitrogen [Mass/Vol] 34 mg/dL High 01-28 [facility] Comment on above: Order Comment: Speci men Type: BLOOD SPECIMENOrdering Facility: [facility] Address: [address] [place] [address] Performed By: #### 1 4338-8, 42379-6, 2777-1, 70458-5 ####[facility] LABORATORYCLIA [id number] [address] [place] CBC W Auto Differential pane l (Bld)on 07-28-2021 Basophils (Bld) [#/Vol] 0.04 10*3/uL Normal <0.11 [facility] Comment on above: Order Comment: Speci men Type: BLOOD SPECIMENOrdering Facility: [facility] Address: [address] [place] [address] Performed By: #### 5 7021-8 ####[facility] LABORATORYCLIA [id number] [address] [place] Basophils/100 WBC (Bld) 0.5 % Normal [facility] Comment on above: Order Comment: Speci men Type: BLOOD SPECIMENOrdering Facility: [facility] Address: [address] [place] [address] Performed By: #### 5 7021-8 ####[facility] LABORATORYCLIA [id number] [address] [place] [facility] Differential cell count method Nom (Bld) Auto Normal [facility] Comment on above: Order Comment: Speci men Type: BLOOD SPECIMENOrdering Facility: [facility] Address: [address] [place] [address] Performed By: #### 5 7021-8 ####[facility] LABORATORYCLIA [id number] [address] [place] Eosinophils (Bld) [#/Vol] 0.30 10*3/uL Normal <0.46 [facility] Comment on above: Order Comment: Speci men Type: BLOOD SPECIMENOrdering Facility: [facility] Address: [address] [place] [address] Performed By: #### 5 7021-8 ####[facility] LABORATORYCLIA [id number] [address] [place] Eosinophils/100 WBC (Bld) 3.4 % Normal [facility] Comment on above: Order Comment: Speci men Type: BLOOD SPECIMENOrdering Facility: [facility] Address: [address] [place] [address] Performed By: #### 5 7021-8 ####[facility] LABORATORYCLIA [id number] [address] Erythrocyte distribution width (RBC) [Ratio] 16.9 % High 11.5-15.0 [facility] Comment on above: Order Comment: Speci men Type: BLOOD SPECIMENOrdering Facility: [facility] Address: [address] [place] [address] Performed By: #### 5 7021-8 ####[facility] LABORATORYCLIA [id number] [address] [place] [facility] Hematocrit (Bld) [Volume fraction] 30.3 % Low 39.0-51.0 [facility] Comment on above: Order Comment: Speci men Type: BLOOD SPECIMENOrdering Facility: [facility] Address: [address] [address] Performed By: #### 5 7021-8 ####[facility] LABORATORYCLIA [id number] [address] [place] Hemoglobin (Bld) [Mass/Vol] 9.2 g/dL Low 13.0-17.0 [facility] Comment on above: Order Comment: Speci men Type: BLOOD SPECIMENOrdering Facility: [facility] Address: [address] [place] [address] Performed By: #### 5 7021-8 ####[facility]ORATORYCLIA [id number] [address] IMMATURE GRAN % 0.6 % Normal [facility] Comment on above: Order Comment: Speci men Type: BLOOD SPECIMENOrdering Facility: [facility] Address: [address] [place] [address] Performed By: #### 5 7021-8 ####[facility] LABORATORYCLIA [id number] [address] IMMATURE GRAN ABS 0.05 k/uL Normal <0.10 [facility] Comment on above: Order Comment: Speci men Type: BLOOD SPECIMENOrdering Facility: [facility] Address: [address] [place] [address] Performed By: #### 5 7021-8 ####[facility] LABORATORYCLIA [id number] [address] Lymphocytes (Bld) [#/Vol] 1.68 10*3/uL Normal 1.00-4.00 [facility] Comment on above: Order Comment: Speci men Type: BLOOD SPECIMENOrdering Facility: [facility] Address: [address] [place] [address] Performed By: #### 5 7021-8 ####[facility] LABORATORYCLIA [id number] [address] Lymphocytes/100 WBC (Bld) 19.2 % Normal [facility] Comment on above: Order Comment: Speci men Type: BLOOD SPECIMENOrdering Facility: [facility] Address: [address] [place] [address] Performed By: #### 5 7021-8 ####[facility] LABORATORYCLIA [id number] [address] MCH (RBC) [Entitic mass] 28.4 pg Normal 26.0-34.0 [facility] Comment on above: Order Comment: Speci men Type: BLOOD SPECIMENOrdering Facility: [facility] Address: [address] [place] [address] Performed By: #### 5 7021-8 ####[facility]ORATORYCLIA [id number] [address] [place] [facility] MCHC (RBC) [Mass/Vol] 30.4 g/dL Low 30.5-36.0 [facility] Comment on above: Order Comment: Speci men Type: BLOOD SPECIMENOrdering Facility: [facility] Address: [address] [place] [address] Performed By: #### 5 7021-8 ####[facility] LABORATORYCLIA [id number] [address] [place] [facility] MCV (RBC) [Entitic vol] 93.5 fL Normal 80.0-100.0 [facility] Comment on above: Order Comment: Speci men Type: BLOOD SPECIMENOrdering Facility: [facility] Address: [address] [place] [address] Performed By: #### 5 7021-8 ####[facility] LABORATORYCLIA [id number] [address] Monocytes (Bld) [#/Vol] 0.58 10*3/uL Normal <0.87 [facility] Comment on above: Order Comment: Speci men Type: BLOOD SPECIMENOrdering Facility: [facility] Address: [address] [place] [address] Performed By: #### 5 7021-8 ####[facility]ORATORYCLIA [id number] [address] Monocytes/100 WBC (Bld) 6.6 % Normal [facility] Comment on above: Order Comment: Speci men Type: BLOOD SPECIMENOrdering Facility: [facility] Address: [address] [place] [address] Performed By: #### 5 7021-8 ####[facility] LABORATORYCLIA [id number] [address] [place] Neutrophils (Bld) [#/Vol] 6.11 10*3/uL Normal 1.45-7.50 [facility] Comment on above: Order Comment: Speci men Type: BLOOD SPECIMENOrdering Facility: [facility] Address: [address] [place] [address] Performed By: #### 5 7021-8 ####[facility] LABORATORYCLIA [id number] [place] [address] [place] Neutrophils/100 WBC (Bld) 69.7 % Normal [facility] Comment on above: Order Comment: Speci men Type: BLOOD SPECIMENOrdering Facility: [facility] Address: [address] [place] [address] Performed By: #### 5 7021-8 ####[facility] LABORATORYCLIA [id number] [address] [place] Nucleated RBC (Bld) [#/Vol] 10*3/uL Normal <0.01 [facility] Comment on above: Order Comment: Speci men Type: BLOOD SPECIMENOrdering Facility: [facility] Address: [address] [place] [address] Performed By: #### 5 7021-8 ####[facility] LABORATORYCLIA [id number] [address] [place] Nucleated RBC/100 WBC (Bld) [Ratio] 0.0 /100 WBC Normal [facility] Comment on above: Order Comment: Speci men Type: BLOOD SPECIMENOrdering Facility: [facility] Address: [address] [place] [address] Performed By: #### 5 7021-8 ####[facility] LABORATORYCLIA [id number] [place] [address] [place] Platelet mean volume (Bld) [Entitic vol] 11.3 fL Normal 9.0-12.7 [facility] Comment on above: Order Comment: Speci men Type: BLOOD SPECIMENOrdering Facility: [facility] Address: [address] [place] [address] Performed By: #### 5 7021-8 ####[facility]ORATORYCLIA [id number] [address] [place] Platelets (Bld) [#/Vol] 238 10*3/uL Normal 150-400 [facility] Comment on above: Order Comment: Speci men Type: BLOOD SPECIMENOrdering Facility: [facility] Address: [address] [place] [address] Performed By: #### 5 7021-8 ####[facility] LABORATORYCLIA [id number] [place] [address] [place] RBC (Bld) [#/Vol] 3.24 10*6/uL Low 4.20-6.00 [facility] Comment on above: Order Comment: Speci men Type: BLOOD SPECIMENOrdering Facility: [facility] Address: [address] [place] [address] Performed By: #### 5 7021-8 ####[facility] LABORATORYCLIA [id number] [address] [facility] WBC (Bld) [#/Vol] 8.76 10*3/uL Normal 3.70-11.00 [facility] Comment on above: Order Comment: Speci men Type: BLOOD SPECIMENOrdering Facility: [facility] Address: [address] [place] [address] Performed By: #### 5 7021-8 ####[facility] LABORATORYCLIA [id number] [address] [place] MRI BRAIN WO/W IVCONon 07-28 MRI BRAIN WO/W IVCON Normal [facility] Magnesium SerPl-mCncon 07-28 Magnesium [Mass/Vol] 2.5 mg/dL High 1.7-2.3 [facility] Comment on above: Order Comment: Speci men Type: BLOOD SPECIMENOrdering Facility: [facility] Address: [address] [place] [address] Performed By: #### 1 4338-8, 65786-9, 2777-1, 84349-5 ####[facility]ORATORYCLIA [id number] [address] [place] NURSING PROGon 07-28-2021 NURSING PROG Normal [facility] NURSING PROG Normal [facility] Phosphate SerPl-mCncon 07-28 Phosphate [Mass/Vol] 2.8 mg/dL Normal 2.7-4.8 [facility] Comment on above: Order Comment: Speci men Type: BLOOD SPECIMENOrdering Facility: [facility] Address: [address] [place] [address] Performed By: #### 1 4338-8, 03973-1, 2777-1, 17820-7 ####[facility]ORATORYCLIA [id number] [address] Prealbumin [Mass/Vol]on 07-06 Prealbumin Nephelometry [Mass/Vol] 25 mg/dL Normal 17-36 [facility] Comment on above: Order Comment: Speci men Type: BLOOD SPECIMENOrdering Facility: [facility] Address: [address] [place] [address] Performed By: #### 1 4338-8, 60779-9, 2777-1, 30819-6 ####[facility]REMENCLIA [id number] [address] [place] aPTT PPPon 07-28-2021 aPTT Coag (PPP) [Time] 53.0 s High 23.0-32.4 [facility] Comment on above: Order Comment: Speci men Type: BLOOD SPECIMENOrdering Facility: [facility] Address: [address] [place] [address] Performed By: #### 1 4979-9 ####[facility]ORATORYCLIA [id number] [address] [place] aPTT Coag (PPP) [Time] 57.2 s High 23.0-32.4 [facility] Comment on above: Order Comment: Speci men Type: BLOOD SPECIMENOrdering Facility: [facility] Address: [address] [address] Performed By: #### 1 4979-9 ####[facility]ORATORYCLIA [id number] [address] [facility] Bacteria CSF Culton 07-28-19 Bacteria identified Cx Nom (CSF) CULTURE, CSF: No growth 14 days GRAM STAIN: No organisms seen Rare Polymorphonuclear leukocytes Rare Red Blood Cells Gram stain performed on cytospun specimen. Normal [facility] Comment on above: Performed By: #### 6 06-4 ####[facility]ORATORYCLIA [id number] [address] Bacteria Spec Resp Culton Bacteria identified Respiratory culture Nom (Unsp spec) CULTURE, RESPIRATORY: Rare Normal respiratory chris present GRAM STAIN: No organisms seen Rare Polymorphonuclear leukocytes Rare Epithelial cells Normal [facility] Comment on above: Performed By: #### 3 2355-0 ####[facility]ORATORYCLIA [id number] [address] CASE MANAGEMon 07-27-2021 CASE MANAGEM Normal [facility] CBC W Auto Differential pane l (Bld)on 07-27-2021 Basophils (Bld) [#/Vol] 0.04 10*3/uL Normal <0.11 [facility] Comment on above: Order Comment: Speci men Type: BLOOD SPECIMENOrdering Facility: [facility] Address: [address] [address] Performed By: #### 5 7021-8 ####[facility]ORATORYCLIA [id number] [address] [place] Basophils/100 WBC (Bld) 0.4 % Normal [facility] Comment on above: Order Comment: Speci men Type: BLOOD SPECIMENOrdering Facility: [facility] Address: [address] [address] Performed By: #### 5 7021-8 ####[facility] LABORATORYCLIA [id number] [place] [address] [place] Differential cell count method Nom (Bld) Auto Normal [facility] Comment on above: Order Comment: Speci men Type: BLOOD SPECIMENOrdering Facility: [facility] Address: [address] [place] [address] Performed By: #### 5 7021-8 ####[facility]ORATORYCLIA [id number] [place] [address] [place] Eosinophils (Bld) [#/Vol] 0.50 10*3/uL High <0.46 [facility] Comment on above: Order Comment: Speci men Type: BLOOD SPECIMENOrdering Facility: [facility] Address: [address] [place] [address] Performed By: #### 5 7021-8 ####[facility]ORATORYCLIA [id number] [address] [place] Eosinophils/100 WBC (Bld) 5.2 % Normal [facility] Comment on above: Order Comment: Speci men Type: BLOOD SPECIMENOrdering Facility: [facility] Address: [address] [place] [address] Performed By: #### 5 7021-8 ####[facility]ORATORYCLIA [id number] [address] [place] Erythrocyte distribution width (RBC) [Ratio] 16.8 % High 11.5-15.0 [facility] Comment on above: Order Comment: Speci men Type: BLOOD SPECIMENOrdering Facility: [facility] Address: [address] [place] [address] Performed By: #### 5 7021-8 ####[facility]ORATORYCLIA [id number] [place] [address] [place] Hematocrit (Bld) [Volume fraction] 29.8 % Low 39.0-51.0 [facility] Comment on above: Order Comment: Speci men Type: BLOOD SPECIMENOrdering Facility: [facility] Address: [address] [place] [address] Performed By: #### 5 7021-8 ####[facility] LABORATORYCLIA [id number] [address] [facility] Hemoglobin (Bld) [Mass/Vol] 9.0 g/dL Low 13.0-17.0 [facility] Comment on above: Order Comment: Speci men Type: BLOOD SPECIMENOrdering Facility: [facility] Address: [address] [place] [address] Performed By: #### 5 7021-8 ####[facility]ORATORYCLIA [id number] [address] IMMATURE GRAN % 0.6 % Normal [facility] Comment on above: Order Comment: Speci men Type: BLOOD SPECIMENOrdering Facility: [facility] Address: [address] [place] [address] Performed By: #### 5 7021-8 ####[facility]ORATORYCLIA [id number] [address] IMMATURE GRAN ABS 0.06 k/uL Normal <0.10 [facility] Comment on above: Order Comment: Speci men Type: BLOOD SPECIMENOrdering Facility: [facility] Address: [address] [place] [address] Performed By: #### 5 7021-8 ####[facility] LABORATORYCLIA [id number] [address] [place] Lymphocytes (Bld) [#/Vol] 1.73 10*3/uL Normal 1.00-4.00 [facility] Comment on above: Order Comment: Speci men Type: BLOOD SPECIMENOrdering Facility: [facility] Address: [address] [place] [address] Performed By: #### 5 7021-8 ####[facility]ORATORYCLIA [id number] [address] Lymphocytes/100 WBC (Bld) 17.9 % Normal [facility] Comment on above: Order Comment: Speci men Type: BLOOD SPECIMENOrdering Facility: [facility] Address: [address] [place] [address] Performed By: #### 5 7021-8 ####[facility]ORATORYCLIA [id number] [address] MCH (RBC) [Entitic mass] 28.1 pg Normal 26.0-34.0 [facility] Comment on above: Order Comment: Speci men Type: BLOOD SPECIMENOrdering Facility: [facility] Address: [address] [place] [address] Performed By: #### 5 7021-8 ####[facility]ORATORYCLIA [id number] [address] [facility] MCHC (RBC) [Mass/Vol] 30.2 g/dL Low 30.5-36.0 [facility] Comment on above: Order Comment: Speci men Type: BLOOD SPECIMENOrdering Facility: [facility] Address: [address] [place] [address] Performed By: #### 5 7021-8 ####[facility]ORATORYCLIA [id number] [address] MCV (RBC) [Entitic vol] 93.1 fL Normal 80.0-100.0 [facility] Comment on above: Order Comment: Speci men Type: BLOOD SPECIMENOrdering Facility: [facility] Address: [address] [place] [address] Performed By: #### 5 7021-8 ####[facility]ORATORYCLIA [id number] [address] Monocytes (Bld) [#/Vol] 0.59 10*3/uL Normal <0.87 [facility] Comment on above: Order Comment: Speci men Type: BLOOD SPECIMENOrdering Facility: [facility] Address: [address] [place] [address] Performed By: #### 5 7021-8 ####[facility]ORATORYCLIA [id number] [address] Monocytes/100 WBC (Bld) 6.1 % Normal [facility] Comment on above: Order Comment: Speci men Type: BLOOD SPECIMENOrdering Facility: [facility] Address: [address] [address] Performed By: #### 5 7021-8 ####[facility] LABORATORYCLIA [id number] [address] [place] Neutrophils (Bld) [#/Vol] 6.75 10*3/uL Normal 1.45-7.50 [facility] Comment on above: Order Comment: Speci men Type: BLOOD SPECIMENOrdering Facility: [facility] Address: [address] [place] [address] Performed By: #### 5 7021-8 ####[facility]ORATORYCLIA [id number] [address] Neutrophils/100 WBC (Bld) 69.8 % Normal [facility] Comment on above: Order Comment: Speci men Type: BLOOD SPECIMENOrdering Facility: [facility] Address: [address] [place] [address] Performed By: #### 5 7021-8 ####[facility]ORATORYCLIA [id number] [address] Nucleated RBC (Bld) [#/Vol] 10*3/uL Normal <0.01 [facility] Comment on above: Order Comment: Speci men Type: BLOOD SPECIMENOrdering Facility: [facility] Address: [address] [place] [address] Performed By: #### 5 7021-8 ####[facility]ORATORYCLIA [id number] [address] Nucleated RBC/100 WBC (Bld) [Ratio] 0.0 /100 WBC Normal [facility] Comment on above: Order Comment: Speci men Type: BLOOD SPECIMENOrdering Facility: [facility] Address: [address] [place] [address] Performed By: #### 5 7021-8 ####[facility]ORATORYCLIA [id number] [address] Platelet mean volume (Bld) [Entitic vol] 11.3 fL Normal 9.0-12.7 [facility] Comment on above: Order Comment: Speci men Type: BLOOD SPECIMENOrdering Facility: [facility] Address: [address] [place] [address] Performed By: #### 5 7021-8 ####[facility]ORATORYCLIA [id number] [place] [address] [place] Platelets (Bld) [#/Vol] 227 10*3/uL Normal 150-400 [facility] Comment on above: Order Comment: Speci men Type: BLOOD SPECIMENOrdering Facility: [facility] Address: [address] [place] [address] Performed By: #### 5 7021-8 ####[facility]ORATORYCLIA [id number] [place] [address] [place] RBC (Bld) [#/Vol] 3.20 10*6/uL Low 4.20-6.00 [facility] Comment on above: Order Comment: Speci men Type: BLOOD SPECIMENOrdering Facility: [facility] Address: [address] [place] [address] Performed By: #### 5 7021-8 ####[facility]ORATORYCLIA [id number] [address] [place] WBC (Bld) [#/Vol] 9.67 10*3/uL Normal 3.70-11.00 [facility] Comment on above: Order Comment: Speci men Type: BLOOD SPECIMENOrdering Facility: [facility] Address: [address] [place] [address] Performed By: #### 5 7021-8 ####[facility]ORATORYCLIA [id number] [address] [facility] CONSULT PROGon 07-27-2021 CONSULT PROG Normal [facility] CSF MANUAL DIFFon 07-27-2021 DIF TTL, CSF 100 cells counted Normal [facility] Comment on above: Order Comment: Speci men Type: CEREBROSPINAL FLUIDOrdering Facility: [facility] Address: [address] [place] [address] Performed By: #### L [id number], 96414-9, [id number] ####[facility]ORATORYCLIA [id number] [address] [place] LYMPH%, CSF 75 % Normal 50-90 [facility] Comment on above: Order Comment: Speci men Type: CEREBROSPINAL FLUIDOrdering Facility: [facility] Address: [address] [place] [address] Performed By: #### L [id number], 03372-2, [id number] ####[facility]ORATORYCLIA [id number] [place] [address] [place] MONO%, CSF 22 % Normal 10-50 [facility] Comment on above: Order Comment: Speci men Type: CEREBROSPINAL FLUIDOrdering Facility: [facility] Address: [address] [place] [address] Performed By: #### L [id number], 35049-3, [id number] ####[facility]ORATORYCLIA [id number] [place] [address] [place] NEUT%, CSF 2 % Normal 0-3 [facility] Comment on above: Order Comment: Speci men Type: CEREBROSPINAL FLUIDOrdering Facility: [facility] Address: [address] [place] [address] Performed By: #### L [id number], 11165-9, [id number] ####[facility]ORATORYCLIA [id number] [address] [place] OTHER CL%, CSF 1 % Normal [facility] Comment on above: Order Comment: Speci men Type: CEREBROSPINAL FLUIDOrdering Facility: [facility] Address: [address] [place] [address] Result Comment: Path ologist review of microscopy results to follow Performed By: #### L [id number], 12204-2, [id number] ####[facility]ORATORYCLIA [id number] [address] CSF PATHOLOGIST INTERP (LAB REFLEX ORDER-NO BILL)on 07-27-2021 CSF STAFF REVIEW Negative Normal [facility] Comment on above: Order Comment: Speci men Type: CEREBROSPINAL FLUIDOrdering Facility: [facility] Address: [address] [place] [address] Performed By: #### L [id number], 20458-3, [id number] ####[facility]ORATORYCLIA [id number] [address] Pathologist name Reviewed by Amador Stevens MD [facility] Comment on above: Order Comment: Speci men Type: CEREBROSPINAL FLUIDOrdering Facility: [facility] Address: [address] [place] [address] Performed By: #### L [id number], [id number] ####[facility] LABORATORYCLIA [id number] [address] Cell count panel (CSF)on Clarity (CSF) Clear Normal Clear [facility] Comment on above: Order Comment: Speci men Type: CEREBROSPINAL FLUIDOrdering Facility: [facility] Address: [address] [place] [address] Performed By: #### L [id number], 35829-9, [id number] ####[facility] LABORATORYCLIA [id number] [address] Clarity (Unsp spec) Not Indicated Normal Clear [facility] Comment on above: Order Comment: Speci men Type: CEREBROSPINAL FLUIDOrdering Facility: [facility] Address: [address] [place] [address] Performed By: #### L [id number], 74968-6, [id number] ####[facility]ORATORYCLIA [id number] [address] Color (CSF) Colorless Normal Colorless [facility] Comment on above: Order Comment: Speci men Type: CEREBROSPINAL FLUIDOrdering Facility: [facility] Address: [address] [place] [address] Performed By: #### L [id number], 27493-0, [id number] ####[facility] LABORATORYCLIA [id number] [address] Color (Spun CSF) Not Indicated Normal Colorless [facility] Comment on above: Order Comment: Speci men Type: CEREBROSPINAL FLUIDOrdering Facility: [facility] Address: [address] [place] [address] Performed By: #### L [id number], 55490-4, [id number] ####[facility] LABORATORYCLIA [id number] [address] CSF TUBE NUMBER Sterile Container Normal [facility] Comment on above: Order Comment: Speci men Type: CEREBROSPINAL FLUIDOrdering Facility: [facility] Address: [address] [place] [address] Performed By: #### L [id number], 83242-6, [id number] ####[facility] LABORATORYCLIA [id number] [address] STATES OF [facility] RBC Manual cnt (CSF) [#/Vol] 39 cells/uL High 0-5 [facility] Comment on above: Order Comment: Speci men Type: CEREBROSPINAL FLUIDOrdering Facility: [facility] Address: [address] [place] [address] Performed By: #### L [id number], 08774-9, [id number] ####[facility]ORATORYCLIA [id number] [address] WBC Manual cnt (CSF) [#/Vol] 14 cells/uL High 0-5 [facility] Comment on above: Order Comment: Speci men Type: CEREBROSPINAL FLUIDOrdering Facility: [facility] Address: [address] [place], [place] [address] Performed By: #### L [id number], 17329-0, [id number] ####[facility]ORATORYCLIA [id number] [address] Glucose CSF-mCncon 2 Glucose (CSF) [Mass/Vol] 64 mg/dL Normal 40-70 [facility] Comment on above: Order Comment: Shira feldman Type: CEREBROSPINAL FLUIDOrdering Facility: [facility] Address: [address] [place] [address] Result Comment: Lumb ar CSF glucose values of healthy patients are approximately 60% of the plasma values and must always be compared with a concurrently measured plasma value for adequate clinical interpretation.References: 1. Glucose HK (GLUC3) [package insert V 12.0 Kazakh]. [employer], [place], [place]. September 2015. 2. Michelle Moore, Loki H. (2015). Chapter 7: Glucose and Lactate. FGarfield Alcocer al.(eds.), Cerebrospinal Fluid in Clinical Neurology. Bleckley: goodideazs. Performed By: #### 2 342-4, 2880-3 ####[facility]ORATORYCLIA [id number] [place] [address] [place] NUTRITIONon 07-27-2021 NUTRITION Normal [facility] Prot CSF-[facility] UPMCon 07-27-2021 Protein (CSF) [Mass/Vol] 58 mg/dL High 15-45 [facility] Comment on above: Order Comment: Shira feldman Type: CEREBROSPINAL FLUIDOrdering Facility: [facility] Address: [address] [place] [address] Performed By: #### 2 342-4, 2880-3 ####[facility]ATORYCLIA [id number] [place] [address] [place] aPTT PPPon 07-27-2021 aPTT Coag (PPP) [Time] 68.4 s High 23.0-32.4 [facility] Comment on above: Order Comment: Shira feldman Type: BLOOD SPECIMENOrdering Facility: [facility] Address: [address] [place] [address] Performed By: #### 1 4979-9 ####[facility]ORATORYCLIA [id number] [address] aPTT Coag (PPP) [Time] 51.3 s High 23.0-32.4 [facility] Comment on above: Order Comment: Speci men Type: BLOOD SPECIMENOrdering Facility: [facility] Address: [address] [place] [address] Performed By: #### 1 4979-9 ####[facility]ORATORYCLIA [id number] [address] OF [facility] ALLIED HEALTHon 07-26-2021 ALLIED HEALTH HNO ID: [id number] Author: Stephanie Maldonado, casing operator Service: Radiology Author Type: Customer Sales Representative Type: Allied Health Filed: 07/26/2021 4:10 PM Note Text: Spoke with nurse. Pt getting new EVD today. Try tomorrow. Normal [facility] Bacteria CSF Culton 07-27-19 Bacteria identified Cx Nom (CSF) Abnormal [facility] Comment on above: Performed By: #### 6 06-4 ####[facility]ORATORYCLIA [id number] [address] STATES [place] [facility] Basic metabolic 2000 panelon 07-26-2021 Anion gap [Moles/Vol] 6 mmol/L Low 9-18 [facility] Comment on above: Order Comment: Speci men Type: BLOOD SPECIMENOrdering Facility: [facility] Address: [address] [place] [address] Performed By: #### 2 4321-2 ####[facility]ORATORYCLIA [id number] [address] [place] Calcium [Mass/Vol] 9.2 mg/dL Normal 8.5-10.2 [facility] Comment on above: Order Comment: Speci men Type: BLOOD SPECIMENOrdering Facility: [facility] Address: [address] [place] [address] Performed By: #### 2 4321-2 ####[facility]ORATORYCLIA [id number] [address] [place] [facility] Chloride [Moles/Vol] 99 mmol/L Normal 97-105 [facility] Comment on above: Order Comment: Speci men Type: BLOOD SPECIMENOrdering Facility: [facility] Address: [address] [place] [address] Performed By: #### 2 4321-2 ####[facility]ORATORYCLIA [id number] [place] [address] [place] [facility] CO2 [Moles/Vol] 32 mmol/L High 22-30 [facility] Comment on above: Order Comment: Speci men Type: BLOOD SPECIMENOrdering Facility: [facility] Address: [address] [place] [address] Performed By: #### 2 4321-2 ####[facility]ORATORYCLIA [id number] [address] [place] [facility] Creatinine [Mass/Vol] 0.74 mg/dL Normal 0.73-1.22 [facility] Comment on above: Order Comment: Speci men Type: BLOOD SPECIMENOrdering Facility: [facility] Address: [address] [place] [address] Performed By: #### 2 4321-2 ####[facility]ORATORYCLIA [id number] [address] ESTIMATED GLOMERULAR FILTRATION RATE 98 mL/min/1.73m??? Normal >=60 [facility] Comment on above: Order Comment: Speci men Type: BLOOD SPECIMENOrdering Facility: [facility] Address: [address] [place] [address] Result Comment: Luzmaria mated Glomerular Filtration Rate [...] actual GFR. Performed By: #### 2 4321-2 ####[facility]ORATORYCLIA [id number] [address] [place] [facility] Glucose [Mass/Vol] 126 mg/dL High 74-99 [facility] Comment on above: Order Comment: Speci men Type: BLOOD SPECIMENOrdering Facility: [facility] Address: [address] [address] Result Comment: The [place] Diabetes Association (ADA) provides guidance for cutoff [...] Standards of Medical Care in Diabetes 2016, [place] [employer]. Diabetes Care. 2016.39(Suppl 1). Performed By: #### 2 4321-2 ####[facility]ORATORYCLIA [id number] [place] [address] [place] Potassium [Moles/Vol] 4.2 mmol/L Normal 3.7-5.1 [facility] Comment on above: Order Comment: Speci men Type: BLOOD SPECIMENOrdering Facility: [facility] Address: [address] [address] Performed By: #### 2 4321-2 ####[facility]ORATORYCLIA [id number] [place] [address] [place] Sodium [Moles/Vol] 137 mmol/L Normal 136-144 [facility] Comment on above: Order Comment: Speci men Type: BLOOD SPECIMENOrdering Facility: [facility] Address: [address] [address] Performed By: #### 2 4321-2 ####[facility]ORATORYCLIA [id number] [place] [address] [place] Urea nitrogen [Mass/Vol] 36 mg/dL High 9-24 [facility] Comment on above: Order Comment: Speci men Type: BLOOD SPECIMENOrdering Facility: [facility] Address: [address] [address] Performed By: #### 2 4321-2 ####[facility]ATORYCLIA [id number] [place] [address] [place] CBC W Auto Differential pane l (Bld)on 07-26-2021 Basophils (Bld) [#/Vol] 0.04 10*3/uL Normal <0.11 [facility] Comment on above: Order Comment: Speci men Type: BLOOD SPECIMENOrdering Facility: [facility] Address: [address] [place] [address] Performed By: #### 5 7021-8 ####[facility]ORATORYCLIA [id number] [address] STATES [facility] Basophils/100 WBC (Bld) 0.4 % Normal [facility] Comment on above: Order Comment: Speci men Type: BLOOD SPECIMENOrdering Facility: [facility] Address: [address] [place] [address] Performed By: #### 5 7021-8 ####[facility]ORATORYCLIA [id number] [address] Differential cell count method Nom (Bld) Auto Normal [facility] Comment on above: Order Comment: Speci men Type: BLOOD SPECIMENOrdering Facility: [facility] Address: [address] [place] [address] Performed By: #### 5 7021-8 ####[facility]ATORYCLIA [id number] [place] [address] [place] Eosinophils (Bld) [#/Vol] 0.63 10*3/uL High <0.46 [facility] Comment on above: Order Comment: Speci men Type: BLOOD SPECIMENOrdering Facility: [facility] Address: [address] [place] [address] Performed By: #### 5 7021-8 ####[facility]ORATORYCLIA [id number] [address] Eosinophils/100 WBC (Bld) 5.8 % Normal [facility] Comment on above: Order Comment: Speci men Type: BLOOD SPECIMENOrdering Facility: [facility] Address: [address] [place] [address] Performed By: #### 5 7021-8 ####[facility]ORATORYCLIA [id number] [address] Erythrocyte distribution width (RBC) [Ratio] 16.8 % High 11.5-15.0 [facility] Comment on above: Order Comment: Speci men Type: BLOOD SPECIMENOrdering Facility: [facility] Address: [address] [place] [address] Performed By: #### 5 7021-8 ####[facility]ORATORYCLIA [id number] [address] Hematocrit (Bld) [Volume fraction] 31.2 % Low 39.0-51.0 [facility] Comment on above: Order Comment: Speci men Type: BLOOD SPECIMENOrdering Facility: [facility] Address: [address] [place] [address] Performed By: #### 5 7021-8 ####[facility]ORATORYCLIA [id number] [address] Hemoglobin (Bld) [Mass/Vol] 9.1 g/dL Low 13.0-17.0 [facility] Comment on above: Order Comment: Speci men Type: BLOOD SPECIMENOrdering Facility: [facility] Address: [address] [place] [address] Performed By: #### 5 7021-8 ####[facility]ORATORYCLIA [id number] [address] IMMATURE GRAN % 0.6 % Normal [facility] Comment on above: Order Comment: Speci men Type: BLOOD SPECIMENOrdering Facility: [facility] Address: [address] [place] [address] Performed By: #### 5 7021-8 ####[facility]ORATORYCLIA [id number] [address] IMMATURE GRAN ABS 0.07 k/uL Normal <0.10 [facility] Comment on above: Order Comment: Speci men Type: BLOOD SPECIMENOrdering Facility: [facility] Address: [address] [place] [address] Performed By: #### 5 7021-8 ####[facility]ORATORYCLIA [id number] [address] Lymphocytes (Bld) [#/Vol] 2.16 10*3/uL Normal 1.00-4.00 [facility] Comment on above: Order Comment: Speci men Type: BLOOD SPECIMENOrdering Facility: [facility] Address: [address] [place] [address] Performed By: #### 5 7021-8 ####[facility]ORATORYCLIA [id number] [address] Lymphocytes/100 WBC (Bld) 20.0 % Normal [facility] Comment on above: Order Comment: Speci men Type: BLOOD SPECIMENOrdering Facility: [facility] Address: [address] [place] [address] Performed By: #### 5 7021-8 ####[facility]ORATORYCLIA [id number] [address] STATES [place] [facility] MCH (RBC) [Entitic mass] 27.7 pg Normal 26.0-34.0 [facility] Comment on above: Order Comment: Speci men Type: BLOOD SPECIMENOrdering Facility: [facility] Address: [address] [place] [address] Performed By: #### 5 7021-8 ####[facility]ORATORYCLIA [id number] [address] STATES [facility] MCHC (RBC) [Mass/Vol] 29.2 g/dL Low 30.5-36.0 [facility] Comment on above: Order Comment: Speci men Type: BLOOD SPECIMENOrdering Facility: [facility] Address: [address] [place] [address] Performed By: #### 5 7021-8 ####[facility]ORATORYCLIA [id number] [place] [address] [place] MCV (RBC) [Entitic vol] 95.1 fL Normal 80.0-100.0 [facility] Comment on above: Order Comment: Speci men Type: BLOOD SPECIMENOrdering Facility: [facility] Address: [address] [place] [address] Performed By: #### 5 7021-8 ####[facility]ORATORYCLIA [id number] [place] [address] [place] Monocytes (Bld) [#/Vol] 0.63 10*3/uL Normal <0.87 [facility] Comment on above: Order Comment: Speci men Type: BLOOD SPECIMENOrdering Facility: [facility] Address: [address] [place] [address] Performed By: #### 5 7021-8 ####[facility]ORATORYCLIA [id number] [address] [place] [facility] Monocytes/100 WBC (Bld) 5.8 % Normal [facility] Comment on above: Order Comment: Speci men Type: BLOOD SPECIMENOrdering Facility: [facility] Address: [address] [place] [address] Performed By: #### 5 7021-8 ####[facility] LABORATORYCLIA [id number] [place] [address] [place] Neutrophils (Bld) [#/Vol] 7.25 10*3/uL Normal 1.45-7.50 [facility] Comment on above: Order Comment: Speci men Type: BLOOD SPECIMENOrdering Facility: [facility] Address: [address] [place] [address] Performed By: #### 5 7021-8 ####[facility] LABORATORYCLIA [id number] [address] [place] Neutrophils/100 WBC (Bld) 67.4 % Normal [facility] Comment on above: Order Comment: Speci men Type: BLOOD SPECIMENOrdering Facility: [facility] Address: [address] Performed By: #### 5 7021-8 ####[facility] LABORATORYCLIA [id number] [address] Nucleated RBC (Bld) [#/Vol] 10*3/uL Normal <0.01 [facility] Comment on above: Order Comment: Speci men Type: BLOOD SPECIMENOrdering Facility: [facility] Address: [address] [place] [address] Performed By: #### 5 7021-8 ####[facility]ORATORYCLIA [id number] [address] Nucleated RBC/100 WBC (Bld) [Ratio] 0.0 /100 WBC Normal [facility] Comment on above: Order Comment: Speci men Type: BLOOD SPECIMENOrdering Facility: [facility] Address: [address] [place] [address] Performed By: #### 5 7021-8 ####[facility]ORATORYCLIA [id number] [address] [place] Platelet mean volume (Bld) [Entitic vol] 11.2 fL Normal 9.0-12.7 [facility] Comment on above: Order Comment: Speci men Type: BLOOD SPECIMENOrdering Facility: [facility] Address: [address] [place] [address] Performed By: #### 5 7021-8 ####[facility]ORATORYCLIA [id number] [address] Platelets (Bld) [#/Vol] 245 10*3/uL Normal 150-400 [facility] Comment on above: Order Comment: Speci men Type: BLOOD SPECIMENOrdering Facility: [facility] Address: [address] [place] [address] Performed By: #### 5 7021-8 ####[facility] LABORATORYCLIA [id number] [address] [place] RBC (Bld) [#/Vol] 3.28 10*6/uL Low 4.20-6.00 [facility] Comment on above: Order Comment: Speci men Type: BLOOD SPECIMENOrdering Facility: [facility] Address: [address] [place] [address] Performed By: #### 5 7021-8 ####[facility]ORATORYCLIA [id number] [place] [address] [place] WBC (Bld) [#/Vol] 10.78 10*3/uL Normal 3.70-11.00 [facility] Comment on above: Order Comment: Speci men Type: BLOOD SPECIMENOrdering Facility: [facility] Address: [address] [place] [address] Performed By: #### 5 7021-8 ####[facility]ORATORYCLIA [id number] [address] OF [facility] CSF MANUAL DIFFon 07-26-2021 DIF TTL, CSF 100 cells counted Normal [facility] Comment on above: Order Comment: Speci men Type: CEREBROSPINAL FLUIDOrdering Facility: [facility] Address: [address] [place] [address] Performed By: #### 3 4563-7, [id number], [id number] ####[facility]ORATORYCLIA [id number] [address] [place] LYMPH%, CSF 26 % Low 50-90 [facility] Comment on above: Order Comment: Speci men Type: CEREBROSPINAL FLUIDOrdering Facility: [facility] Address: [address] [place] [address] Performed By: #### 3 4563-7, [id number], [id number] ####[facility] LABORATORYCLIA [id number] [address] [place] MACRO%, CSF 10 % High <1 [facility] Comment on above: Order Comment: Speci men Type: CEREBROSPINAL FLUIDOrdering Facility: [facility] Address: [address] [place] [address] Performed By: #### 3 4563-7, [id number], [id number] ####[facility]ORATORYCLIA [id number] [place] [address] [place] MONO%, CSF 20 % Normal 10-50 [facility] Comment on above: Order Comment: Speci men Type: CEREBROSPINAL FLUIDOrdering Facility: [facility] Address: [address] [place] [address] Performed By: #### 3 4563-7, [id number], [id number] ####[facility]ORATORYCLIA [id number] [place] [address] [place] NEUT%, CSF 40 % High 0-3 [facility] Comment on above: Order Comment: Speci men Type: CEREBROSPINAL FLUIDOrdering Facility: [facility] Address: [address] [place] [address] Performed By: #### 3 4563-7, [id number], [id number] ####[facility] LABORATORYCLIA [id number] [address] OTHER CL%, CSF 2 % Normal [facility] Comment on above: Order Comment: Speci men Type: CEREBROSPINAL FLUIDOrdering Facility: [facility] Address: [address] [place] [address] Result Comment: Path review to follow. Performed By: #### 3 4563-7, [id number], [id number] ####[facility]ATORYCLIA [id number] [address] [place] REAC LYMPH %, CSF 2 % Normal [facility] Comment on above: Order Comment: Speci men Type: CEREBROSPINAL FLUIDOrdering Facility: [facility] Address: [address] [place] [address] Performed By: #### 3 4563-7, [id number], [id number] ####[facility]ORATORYCLIA [id number] [address] CSF PATHOLOGIST INTERP (LAB REFLEX ORDER-NO BILL)on 07-26-2021 CSF STAFF REVIEW Negative for maligna nt cells. Rare bacteria present, cocci in pairs and chains. Correlation with CSF cultures is recommended. Normal [facility] Comment on above: Order Comment: Speci men Type: CEREBROSPINAL FLUIDOrdering Facility: [facility] Address: [address] [address] Performed By: #### 3 4563-7, [id number], [id number] ####[facility] LABORATORYCLIA [id number] [address] Pathologist name Reviewed by Amador Stevens MD [facility] Comment on above: Order Comment: Speci men Type: CEREBROSPINAL FLUIDOrdering Facility: [facility] Address: [address] [place] [address] Performed By: #### 3 4563-7, [id number], [id number] ####[facility] LABORATORYCLIA [id number] [address] [place] Cell count panel (CSF)on Clarity (CSF) Slightly Cloudy Abnormal Clear [facility] Comment on above: Order Comment: Speci men Type: CEREBROSPINAL FLUIDOrdering Facility: [facility] Address: [address] [place] [address] Performed By: #### 3 4563-7, [id number], [id number] ####[facility]ORATORYCLIA [id number] [address] Clarity (Unsp spec) Clear Normal Clear [facility] Comment on above: Order Comment: Speci men Type: CEREBROSPINAL FLUIDOrdering Facility: [facility] Address: [address] [address] Performed By: #### 3 4563-7, [id number], [id number] ####[facility]ORATORYCLIA [id number] [address] Color (CSF) Colorless Normal Colorless [facility] Comment on above: Order Comment: Speci men Type: CEREBROSPINAL FLUIDOrdering Facility: [facility] Address: [address] [address] Performed By: #### 3 4563-7, [id number], [id number] ####[facility]ORATORYCLIA [id number] [address] Color (Spun CSF) Not Indicated Normal Colorless [facility] Comment on above: Order Comment: Speci men Type: CEREBROSPINAL FLUIDOrdering Facility: [facility] Address: [address] [place] [address] Performed By: #### 3 4563-7, [id number], [id number] ####[facility]ORATORYCLIA [id number] [address] [place] CSF TUBE NUMBER Sterile Container Normal [facility] Comment on above: Order Comment: Speci men Type: CEREBROSPINAL FLUIDOrdering Facility: [facility] Address: [address] [place] [address] Performed By: #### 3 4563-7, [id number], [id number] ####[facility] LABORATORYCLIA [id number] [address] STATES OF [facility] RBC Manual cnt (CSF) [#/Vol] 1 cells/uL Normal 0-5 [facility] Comment on above: Order Comment: Speci men Type: CEREBROSPINAL FLUIDOrdering Facility: [facility] Address: [address] [place] [address] Performed By: #### 3 4563-7, [id number], [id number] ####[facility]ORATORYCLIA [id number] [address] WBC Manual cnt (CSF) [#/Vol] 50 cells/uL High 0-5 [facility] Comment on above: Order Comment: Speci men Type: CEREBROSPINAL FLUIDOrdering Facility: [facility] Address: [address] [place] [address] Performed By: #### 3 4563-7, [id number], [id number] ####[facility] LABORATORYCLIA [id number] [address] [place] Glucose CSF-mCncon 2 Glucose (CSF) [Mass/Vol] 64 mg/dL Normal 40-70 [facility] Comment on above: Order Comment: Speci men Type: CEREBROSPINAL FLUIDOrdering Facility: [facility] Address: [address] [place], [place] [phone] Result Comment: Lumb ar CSF glucose values of healthy patients are approximately 60% of the plasma values and must always be compared with a concurrently measured plasma value for adequate clinical interpretation.References: 1. Glucose HK (GLUC3) [package insert V 12.0 Kazakh]. [employer], [place], [place]. September 2015. 2. Michelle Moore, Loki HGarfield (2015). Chapter 7: Glucose and Lactate. FGarfield Alcocer al.(eds.), Cerebrospinal Fluid in Clinical Neurology. Bleckley: goodideazs. Performed By: #### 2 880-3, 2342-4 ####[facility] LABORATORYCLIA [id number] [address] Magnesium SerPl-[facility] UPMCon 07-26 Magnesium [Mass/Vol] 2.3 mg/dL Normal 1.7-2.3 [facility] Comment on above: Order Comment: Speci men Type: BLOOD SPECIMENOrdering Facility: [facility] Address: [address] [place], [place] [phone] Performed By: #### 1 9123-9, 2777-1, 3016-3 ####[facility]REM[facility] [id number] [address] OF [facility] NURSING PROGon 07-26-2021 NURSING PROG Normal [facility] Phosphate SerPl-ncon 07-26 Phosphate [Mass/Vol] 2.6 mg/dL Low 2.7-4.8 [facility] Comment on above: Order Comment: Speci men Type: BLOOD SPECIMENOrdering Facility: [facility] Address: [address] [place], [place] [address] Performed By: #### 1 9123-9, 2777-1, 3016-3 ####[facility] LABORATORYCLIA [id number] [address] [place] Prot CSF-mCncon 07-26-2021 Protein (CSF) [Mass/Vol] 64 mg/dL High 15-45 [facility] Comment on above: Order Comment: Speci men Type: CEREBROSPINAL FLUIDOrdering Facility: [facility] Address: [address] [place] [address] Performed By: #### 2 880-3, 2342-4 ####[facility] LABORATORYCLIA [id number] [address] OF [facility] THERAPY NTon 07-26-2021 THERAPY NT Normal [facility] TSH SerPl-aCncon 07-26-2021 TSH Qn 1.470 m[IU]/L Normal 0.270-4.200 [facility] Comment on above: Order Comment: Speci men Type: BLOOD SPECIMENOrdering Facility: [facility] Address: [address] [place] [address] Performed By: #### 1 9123-9, 2777-1, 3016-3 ####[facility]ORATORYCLIA [id number] [address] [place] VITAMIN B12 BLOODon 07-27-19 Cobalamin (Vitamin B12) [Mass/Vol] 934 pg/mL Normal 232-1,245 [facility] Comment on above: Order Comment: Speci men Type: BLOOD SPECIMENOrdering Facility: [facility] Address: [address] [place] [address] Performed By: #### B 12 ####[facility]ORATORYCLIA [id number] [place] [address] [place] aPTT PPPon 07-26-2021 aPTT Coag (PPP) [Time] 53.6 s High 23.0-32.4 [facility] Comment on above: Order Comment: Speci men Type: BLOOD SPECIMENOrdering Facility: [facility] Address: [address] [place] [address] Performed By: #### 1 4979-9 ####[facility]ATORYCLIA [id number] [address] aPTT Coag (PPP) [Time] 44.9 s High 23.0-32.4 [facility] Comment on above: Order Comment: Speci men Type: BLOOD SPECIMENOrdering Facility: [facility] Address: [address] [place] [address] Performed By: #### 1 4979-9 ####[facility] LABORATORYCLIA [id number] [address] [place] ALLIED HEALTHon 07-25-2021 ALLIED HEALTH HNO ID: [id number] Author: Shannon Bess RT(R) Service: Radiology Author Type: Technologist Type: Allied Health Filed: 07/25/2021 1:37 PM Note Text: Called floor for MRI screening form [id number] Normal [facility] Bacteria Bld Culton 07-26-19 Bacteria identified Cx Nom (Bld) CULTURE, BLOOD: No growth 5 days Normal [facility] Comment on above: Performed By: #### 6 00-7 ####[facility]ORATORYCLIA [id number] [address] STATES OF [facility] Bacteria identified Cx Nom (Bld) CULTURE, BLOOD: No growth 5 days Normal [facility] Comment on above: Performed By: #### 6 00-7 ####[facility]ORATORYCLIA [id number] [address] [place] CASE MANAGEMon 07-25-2021 CASE MANAGEM Normal [facility] CBC W Auto Differential pane l (Bld)on 07-25-2021 Basophils (Bld) [#/Vol] 0.06 10*3/uL Normal <0.11 [facility] Comment on above: Order Comment: Speci men Type: BLOOD SPECIMENOrdering Facility: [facility] Address: [address] [place], [place] [phone] Performed By: #### 5 7021-8 ####[facility]ATORYCLIA [id number] [address] [place] Basophils/100 WBC (Bld) 0.6 % Normal [facility] Comment on above: Order Comment: Speci men Type: BLOOD SPECIMENOrdering Facility: [facility] Address: [address] [place] [address] Performed By: #### 5 7021-8 ####[facility]ORATORYCLIA [id number] [address] Differential cell count method Nom (Bld) Auto Normal [facility] Comment on above: Order Comment: Speci men Type: BLOOD SPECIMENOrdering Facility: [facility] Address: [address] [place] [address] Performed By: #### 5 7021-8 ####[facility]ORATORYCLIA [id number] [address] Eosinophils (Bld) [#/Vol] 0.26 10*3/uL Normal <0.46 [facility] Comment on above: Order Comment: Speci men Type: BLOOD SPECIMENOrdering Facility: [facility] Address: [address] [place] [address] Performed By: #### 5 7021-8 ####[facility]ORATORYCLIA [id number] [address] Eosinophils/100 WBC (Bld) 2.5 % Normal [facility] Comment on above: Order Comment: Speci men Type: BLOOD SPECIMENOrdering Facility: [facility] Address: [address] [place] [address] Performed By: #### 5 7021-8 ####[facility]ORATORYCLIA [id number] [address] Erythrocyte distribution width (RBC) [Ratio] 16.9 % High 11.5-15.0 [facility] Comment on above: Order Comment: Speci men Type: BLOOD SPECIMENOrdering Facility: [facility] Address: [address] [place] [address] Performed By: #### 5 7021-8 ####[facility]ORATORYCLIA [id number] [address] Hematocrit (Bld) [Volume fraction] 29.6 % Low 39.0-51.0 [facility] Comment on above: Order Comment: Speci men Type: BLOOD SPECIMENOrdering Facility: [facility] Address: [address] [place] [address] Performed By: #### 5 7021-8 ####[facility]ORATORYCLIA [id number] [address] [place] Hemoglobin (Bld) [Mass/Vol] 8.8 g/dL Low 13.0-17.0 [facility] Comment on above: Order Comment: Speci men Type: BLOOD SPECIMENOrdering Facility: [facility] Address: [address] [place] [address] Performed By: #### 5 7021-8 ####[facility]ORATORYCLIA [id number] [address] [place] IMMATURE GRAN % 0.6 % Normal [facility] Comment on above: Order Comment: Speci men Type: BLOOD SPECIMENOrdering Facility: [facility] Address: [address] [place] [address] Performed By: #### 5 7021-8 ####[facility]ORATORYCLIA [id number] [address] IMMATURE GRAN ABS 0.06 k/uL Normal <0.10 [facility] Comment on above: Order Comment: Speci men Type: BLOOD SPECIMENOrdering Facility: [facility] Address: [address] [place] [address] Performed By: #### 5 7021-8 ####[facility]ORATORYCLIA [id number] [address] [place] Lymphocytes (Bld) [#/Vol] 2.15 10*3/uL Normal 1.00-4.00 [facility] Comment on above: Order Comment: Speci men Type: BLOOD SPECIMENOrdering Facility: [facility] Address: [address] [place] [address] Performed By: #### 5 7021-8 ####[facility]ATORYCLIA [id number] [address] Lymphocytes/100 WBC (Bld) 20.7 % Normal [facility] Comment on above: Order Comment: Speci men Type: BLOOD SPECIMENOrdering Facility: [facility] Address: [address] [place] [address] Performed By: #### 5 7021-8 ####[facility]ATORYCLIA [id number] [address] MCH (RBC) [Entitic mass] 28.2 pg Normal 26.0-34.0 [facility] Comment on above: Order Comment: Speci men Type: BLOOD SPECIMENOrdering Facility: [facility] Address: [address] [place] [address] Performed By: #### 5 7021-8 ####[facility]ORATORYCLIA [id number] [address] STATES OF [facility] MCHC (RBC) [Mass/Vol] 29.7 g/dL Low 30.5-36.0 [facility] Comment on above: Order Comment: Speci men Type: BLOOD SPECIMENOrdering Facility: [facility] Address: [address] [place] [address] Performed By: #### 5 7021-8 ####[facility]ORATORYCLIA [id number] [address] MCV (RBC) [Entitic vol] 94.9 fL Normal 80.0-100.0 [facility] Comment on above: Order Comment: Speci men Type: BLOOD SPECIMENOrdering Facility: [facility] Address: [address] [place] [address] Performed By: #### 5 7021-8 ####[facility]ATORYCLIA [id number] [address] Monocytes (Bld) [#/Vol] 0.62 10*3/uL Normal <0.87 [facility] Comment on above: Order Comment: Speci men Type: BLOOD SPECIMENOrdering Facility: [facility] Address: [address] [address] Performed By: #### 5 7021-8 ####[facility]ORATORYCLIA [id number] [address] [place] Monocytes/100 WBC (Bld) 6.0 % Normal [facility] Comment on above: Order Comment: Speci men Type: BLOOD SPECIMENOrdering Facility: [facility] Address: [address] [place] [address] Performed By: #### 5 7021-8 ####[facility]ORATORYCLIA [id number] [place] [address] [place] Neutrophils (Bld) [#/Vol] 7.25 10*3/uL Normal 1.45-7.50 [facility] Comment on above: Order Comment: Speci men Type: BLOOD SPECIMENOrdering Facility: [facility] Address: [address] [place] [address] Performed By: #### 5 7021-8 ####[facility]ORATORYCLIA [id number] [address] STATES [facility] Neutrophils/100 WBC (Bld) 69.6 % Normal [facility] Comment on above: Order Comment: Speci men Type: BLOOD SPECIMENOrdering Facility: [facility] Address: [address] [place] [address] Performed By: #### 5 7021-8 ####[facility]ATORYCLIA [id number] [address] [place] Nucleated RBC (Bld) [#/Vol] 10*3/uL Normal <0.01 [facility] Comment on above: Order Comment: Speci men Type: BLOOD SPECIMENOrdering Facility: [facility] Address: [address] [place] [address] Performed By: #### 5 7021-8 ####[facility]ORATORYCLIA [id number] [address] [place] Nucleated RBC/100 WBC (Bld) [Ratio] 0.0 /100 WBC Normal [facility] Comment on above: Order Comment: Speci men Type: BLOOD SPECIMENOrdering Facility: [facility] Address: [address] [place] [address] Performed By: #### 5 7021-8 ####[facility]ORATORYCLIA [id number] [address] [place] Platelet mean volume (Bld) [Entitic vol] 11.3 fL Normal 9.0-12.7 [facility] Comment on above: Order Comment: Speci men Type: BLOOD SPECIMENOrdering Facility: [facility] Address: [address] [place], [place] [phone] Performed By: #### 5 7021-8 ####[facility]ORATORYCLIA [id number] [address] [place] Platelets (Bld) [#/Vol] 243 10*3/uL Normal 150-400 [facility] Comment on above: Order Comment: Speci men Type: BLOOD SPECIMENOrdering Facility: [facility] Address: [address] [place] [address] Performed By: #### 5 7021-8 ####[facility]ORATORYCLIA [id number] [place] [address] [place] RBC (Bld) [#/Vol] 3.12 10*6/uL Low 4.20-6.00 [facility] Comment on above: Order Comment: Speci men Type: BLOOD SPECIMENOrdering Facility: [facility] Address: [address] [place], [place] [phone] Performed By: #### 5 7021-8 ####[facility]ORATORYCLIA [id number] [place] [address] [place] WBC (Bld) [#/Vol] 10.40 10*3/uL Normal 3.70-11.00 [facility] Comment on above: Order Comment: Speci men Type: BLOOD SPECIMENOrdering Facility: [facility] Address: [address] [place] [address] Performed By: #### 5 7021-8 ####[facility]ORATORYCLIA [id number] [place] [address] [place] CONSULT PROGon 07-25-2021 CONSULT PROG Normal [facility] MYCOPLASMA PNEUM IGMon 07-25 M. PNEUMO IGM, QUAL Negative Normal Negative [facility] Comment on above: Order Comment: Speci men Type: BLOOD SPECIMENOrdering Facility: [facility] Address: [address] [place] [address] Result Comment: Myco plasma pneumoniae IgM antibody test is used as an aid in diagnosis of recent infection with M. pneumoniae. It may occasionally remain elevated for extended periods after an acute infection. Cannot exclude recent infection if the specimen collected 7-10 days after onset of signs and symptoms. Clinical correlation is required. Performed By: #### M YCOPM ####[facility] LABCLIA [id number] [facility] [id number] [place] NURSING PROGon 07-25-2021 NURSING PROG Normal [facility] THERAPY NTon 07-25-2021 THERAPY NT Normal [facility] THERAPY NT Normal [facility] aPTT PPPon 07-25-2021 aPTT Coag (PPP) [Time] 62.6 s High 23.0-32.4 [facility] Comment on above: Order Comment: Speci men Type: BLOOD SPECIMENOrdering Facility: [facility] Address: [address] [place] [address] Performed By: #### 1 4979-9 ####[facility]ORATORYCLIA [id number] [address] [place] Bacteria Ur Culton 2 Bacteria identified Cx Nom (U) CULTURE, URINE: No growth (<100 CFU/ml) Normal [facility] Comment on above: Performed By: #### 6 30-4 ####[facility]ORATORYCLIA [id number] [place] [address] [place] Basic metabolic 2000 panelon 07-24-2021 Anion gap [Moles/Vol] 13 mmol/L Normal 9-18 [facility] Comment on above: Order Comment: Speci men Type: BLOOD SPECIMENOrdering Facility: [facility] Address: [address] [place] [address] Performed By: #### 1 9123-9, PROCAL, 2776-05, 71194-2 ####[facility]ORATORYCLIA [id number] [place] [address] [place] Calcium [Mass/Vol] 9.5 mg/dL Normal 8.5-10.2 [facility] Comment on above: Order Comment: Speci men Type: BLOOD SPECIMENOrdering Facility: [facility] Address: [address] [place] [address] Performed By: #### 1 9123-9, PROCAL, 2776-05, 47590-1 ####[facility]ORATORYCLIA [id number] [place] [address] [place] Chloride [Moles/Vol] 102 mmol/L Normal 97-105 [facility] Comment on above: Order Comment: Speci men Type: BLOOD SPECIMENOrdering Facility: [facility] Address: [address] [place] [address] Performed By: #### 1 9123-9, PROCAL, 2776-05, 84876-2 ####[facility]ORATORYCLIA [id number] [place] [address] [place] CO2 [Moles/Vol] 28 mmol/L Normal 22-30 [facility] Comment on above: Order Comment: Speci men Type: BLOOD SPECIMENOrdering Facility: [facility] Address: [address] [address] Performed By: #### 1 9123-9, PROCAL, 2776-05, 73499-9 ####[facility]ORATORYCLIA [id number] [place] [address] [place] Creatinine [Mass/Vol] 0.86 mg/dL Normal 0.73-1.22 [facility] Comment on above: Order Comment: Speci men Type: BLOOD SPECIMENOrdering Facility: [facility] Address: [address] [place] [address] Performed By: #### 1 9123-9, KATIE, 2777-1, 93760-7 ####[facility]CLIA [id number] [address] STATES OF [facility] ESTIMATED GLOMERULAR FILTRATION RATE 94 mL/min/1.73m??? Normal >=60 [facility] Comment on above: Order Comment: Shira feldman Type: BLOOD SPECIMENOrdering Facility: [facility] Address: [address] [address] Result Comment: Luzmaria mated Glomerular Filtration Rate [...] Performed By: #### 1 9123-9, KATIE, 2777-1, 19189-2 ####[facility] LABORATORYIA [id number] [place] [address] [place] Glucose [Mass/Vol] 148 mg/dL High 74-99 [facility] Comment on above: Order Comment: Shira feldman Type: BLOOD SPECIMENOrdering Facility: [facility] Address: [address] [address] Result Comment: The [place] Diabetes Association (ADA) provides guidance for cutoff [...] Standards of Medical Care in Diabetes 2016, [place] [employer]. Diabetes Care. 2016.39(Suppl 1). Performed By: #### 1 9123-9, ELVAAL, 277-1, 44179-6 ####[facility] LABORATORYCLIA [id number] [place] [address] [place] Potassium [Moles/Vol] 4.0 mmol/L Normal 3.7-5.1 [facility] Comment on above: Order Comment: Speci men Type: BLOOD SPECIMENOrdering Facility: [facility] Address: [address] [place] [address] Performed By: #### 1 9123-9, [facility], 2776-05, 58784-8 ####[facility]ORATORYCLIA [id number] [place] [address] [place] Sodium [Moles/Vol] 143 mmol/L Normal 136-144 [facility] Comment on above: Order Comment: Speci men Type: BLOOD SPECIMENOrdering Facility: [facility] Address: [address] [place] [address] Performed By: #### 1 9123-9, [facility], 2776-05, 18600-9 ####[facility]CLIA [id number] [address] [place] Urea nitrogen [Mass/Vol] 38 mg/dL High 9-24 [facility] Comment on above: Order Comment: Speci men Type: BLOOD SPECIMENOrdering Facility: [facility] Address: [address] [place] [address] Performed By: #### 1 9123-9, [facility], 2776-05, 77684-6 ####[facility]ORATORYCLIA [id number] [address] [place] CBC W Auto Differential pane l (Bld)on 07-24-2021 Basophils (Bld) [#/Vol] 0.06 10*3/uL Normal <0.11 [facility] Comment on above: Order Comment: Speci men Type: BLOOD SPECIMENOrdering Facility: [facility] Address: [address] [place] [address] Performed By: #### 5 7021-8 ####[facility]ORATORYCLIA [id number] [address] [place] Basophils/100 WBC (Bld) 0.6 % Normal [facility] Comment on above: Order Comment: Speci men Type: BLOOD SPECIMENOrdering Facility: [facility] Address: [address] [place] [address] Performed By: #### 5 7021-8 ####[facility]ORATORYCLIA [id number] [address] [place] Differential cell count method Nom (Bld) Auto Normal [facility] Comment on above: Order Comment: Speci men Type: BLOOD SPECIMENOrdering Facility: [facility] Address: [address] [place] [address] Performed By: #### 5 7021-8 ####[facility]ORATORYCLIA [id number] [address] [place] Eosinophils (Bld) [#/Vol] 0.03 10*3/uL Normal <0.46 [facility] Comment on above: Order Comment: Speci men Type: BLOOD SPECIMENOrdering Facility: [facility] Address: [address] [place] [address] Performed By: #### 5 7021-8 ####[facility]ORATORYCLIA [id number] [address] Eosinophils/100 WBC (Bld) 0.3 % Normal [facility] Comment on above: Order Comment: Speci men Type: BLOOD SPECIMENOrdering Facility: [facility] Address: [address] [place] [address] Performed By: #### 5 7021-8 ####[facility] LABORATORYCLIA [id number] [address] [place] Erythrocyte distribution width (RBC) [Ratio] 17.0 % High 11.5-15.0 [facility] Comment on above: Order Comment: Speci men Type: BLOOD SPECIMENOrdering Facility: [facility] Address: [address] [place] [address] Performed By: #### 5 7021-8 ####[facility] LABORATORYCLIA [id number] [address] Hematocrit (Bld) [Volume fraction] 30.5 % Low 39.0-51.0 [facility] Comment on above: Order Comment: Speci men Type: BLOOD SPECIMENOrdering Facility: [facility] Address: [address] [place] [address] Performed By: #### 5 7021-8 ####[facility]ORATORYCLIA [id number] [address] Hemoglobin (Bld) [Mass/Vol] 9.0 g/dL Low 13.0-17.0 [facility] Comment on above: Order Comment: Speci men Type: BLOOD SPECIMENOrdering Facility: [facility] Address: [address] [place] [address] Performed By: #### 5 7021-8 ####[facility]ORATORYCLIA [id number] [address] IMMATURE GRAN % 0.5 % Normal [facility] Comment on above: Order Comment: Speci men Type: BLOOD SPECIMENOrdering Facility: [facility] Address: [address] [place] [address] Performed By: #### 5 7021-8 ####[facility] LABORATORYCLIA [id number] [address] IMMATURE GRAN ABS 0.05 k/uL Normal <0.10 [facility] Comment on above: Order Comment: Speci men Type: BLOOD SPECIMENOrdering Facility: [facility] Address: [address] [place] [address] Performed By: #### 5 7021-8 ####[facility]ORATORYCLIA [id number] [address] Lymphocytes (Bld) [#/Vol] 1.68 10*3/uL Normal 1.00-4.00 [facility] Comment on above: Order Comment: Speci men Type: BLOOD SPECIMENOrdering Facility: [facility] Address: [address] [place] [address] Performed By: #### 5 7021-8 ####[facility] LABORATORYCLIA [id number] [address] Lymphocytes/100 WBC (Bld) 16.2 % Normal [facility] Comment on above: Order Comment: Speci men Type: BLOOD SPECIMENOrdering Facility: [facility] Address: [address] [place] [address] Performed By: #### 5 7021-8 ####[facility] LABORATORYCLIA [id number] [address] MCH (RBC) [Entitic mass] 27.4 pg Normal 26.0-34.0 [facility] Comment on above: Order Comment: Speci men Type: BLOOD SPECIMENOrdering Facility: [facility] Address: [address] [place] [address] Performed By: #### 5 7021-8 ####[facility] LABORATORYCLIA [id number] [address] MCHC (RBC) [Mass/Vol] 29.5 g/dL Low 30.5-36.0 [facility] Comment on above: Order Comment: Speci men Type: BLOOD SPECIMENOrdering Facility: [facility] Address: [address] [place] [address] Performed By: #### 5 7021-8 ####[facility] LABORATORYCLIA [id number] [address] MCV (RBC) [Entitic vol] 93.0 fL Normal 80.0-100.0 [facility] Comment on above: Order Comment: Speci men Type: BLOOD SPECIMENOrdering Facility: [facility] Address: [address] [place] [address] Performed By: #### 5 7021-8 ####[facility] LABORATORYCLIA [id number] [address] Monocytes (Bld) [#/Vol] 0.63 10*3/uL Normal <0.87 [facility] Comment on above: Order Comment: Speci men Type: BLOOD SPECIMENOrdering Facility: [facility] Address: [address] [place] [address] Performed By: #### 5 7021-8 ####[facility] LABORATORYCLIA [id number] [address] [place] Monocytes/100 WBC (Bld) 6.1 % Normal [facility] Comment on above: Order Comment: Speci men Type: BLOOD SPECIMENOrdering Facility: [facility] Address: [address] [place] [address] Performed By: #### 5 7021-8 ####[facility] LABORATORYCLIA [id number] [address] [place] Neutrophils (Bld) [#/Vol] 7.91 10*3/uL High 1.45-7.50 [facility] Comment on above: Order Comment: Speci men Type: BLOOD SPECIMENOrdering Facility: [facility] Address: [address] [place] [address] Performed By: #### 5 7021-8 ####[facility] LABORATORYCLIA [id number] [address] [place] Neutrophils/100 WBC (Bld) 76.3 % Normal [facility] Comment on above: Order Comment: Speci men Type: BLOOD SPECIMENOrdering Facility: [facility] Address: [address] [place] [address] Performed By: #### 5 7021-8 ####[facility] LABORATORYCLIA [id number] [address] [place] Nucleated RBC (Bld) [#/Vol] 10*3/uL Normal <0.01 [facility] Comment on above: Order Comment: Speci men Type: BLOOD SPECIMENOrdering Facility: [facility] Address: [address] [place] [address] Performed By: #### 5 7021-8 ####[facility] LABORATORYCLIA [id number] [place] [address] [place] Nucleated RBC/100 WBC (Bld) [Ratio] 0.0 /100 WBC Normal [facility] Comment on above: Order Comment: Speci men Type: BLOOD SPECIMENOrdering Facility: [facility] Address: [address] [place] [address] Performed By: #### 5 7021-8 ####[facility] LABORATORYCLIA [id number] [place] [address] [place] Platelet mean volume (Bld) [Entitic vol] 11.1 fL Normal 9.0-12.7 [facility] Comment on above: Order Comment: Speci men Type: BLOOD SPECIMENOrdering Facility: [facility] Address: [address] [place] [address] Performed By: #### 5 7021-8 ####[facility] LABORATORYCLIA [id number] [address] [place] Platelets (Bld) [#/Vol] 285 10*3/uL Normal 150-400 [facility] Comment on above: Order Comment: Speci men Type: BLOOD SPECIMENOrdering Facility: [facility] Address: [address] [place] [address] Performed By: #### 5 7021-8 ####[facility] LABORATORYCLIA [id number] [place] [address] [place] RBC (Bld) [#/Vol] 3.28 10*6/uL Low 4.20-6.00 [facility] Comment on above: Order Comment: Speci men Type: BLOOD SPECIMENOrdering Facility: [facility] Address: [address] [place] [address] Performed By: #### 5 7021-8 ####[facility] LABORATORYCLIA [id number] [address] [place] WBC (Bld) [#/Vol] 10.36 10*3/uL Normal 3.70-11.00 [facility] Comment on above: Order Comment: Speci men Type: BLOOD SPECIMENOrdering Facility: [facility] Address: [address] [place] [address] Performed By: #### 5 7021-8 ####[facility] LABORATORYCLIA [id number] [address] Legionella Ag Ur Qlon 2021 Legionella sp Ag Ql (U) Negative Normal Negative [facility] Comment on above: Order Comment: Speci men Type: URINE SPECIMENOrdering Facility: [facility] Address: [address] [place] [address] Performed By: #### 3 2781-7 ####[facility] LABORATORYCLIA [id number] [address] OF [facility] Magnesium SerPl-mCncon 07-24 Magnesium [Mass/Vol] 2.3 mg/dL Normal 1.7-2.3 [facility] Comment on above: Order Comment: Speci men Type: BLOOD SPECIMENOrdering Facility: [facility] Address: [address] [place] [address] Performed By: #### 1 9123-9, PROCAL, 2777-1, 44808-1 ####[facility]REMENCLIA [id number] [address] NURSING PROGon 07-24-2021 NURSING PROG Normal [facility] PROCALCITONIN (LAB)on 2021 Procalcitonin [Mass/Vol] 0.15 ng/mL High <0.09 [facility] Comment on above: Order Comment: Speci men Type: BLOOD SPECIMENOrdering Facility: [facility] Address: [address] [place] [address] Result Comment: For a guided interpretation of test results, please visit the Change in Procalcitonin Calculator, [email or web address]. Performed By: #### 1 9123-9, PROCAL, 2777-1, 45079-0 ####[facility] LABORATORYCLIA [id number] [address] [place] Phosphate SerPl-mCncon 07-24 Phosphate [Mass/Vol] 3.9 mg/dL Normal 2.7-4.8 [facility] Comment on above: Order Comment: Speci men Type: BLOOD SPECIMENOrdering Facility: [facility] Address: [address] [place] [address] Performed By: #### 1 9123-9, PROCAL, 2777-1, 33887-7 ####[facility] LABORATORYCLIA [id number] [address] [place] STREPTOCOCCUS PNEUMONIAE AGo n 07-24-2021 STREPTOCOCCUS PNEUMONIAE AG Normal [facility] Comment on above: Performed By: #### S PNAG ####[facility] LABORATORYCLIA [id number] [address] [place] aPTT PPPon 07-24-2021 aPTT Coag (PPP) [Time] 60.8 s High 23.0-32.4 [facility] Comment on above: Order Comment: Speci men Type: BLOOD SPECIMENOrdering Facility: [facility] Address: [address] [place] [address] Performed By: #### 1 4979-9 ####[facility] LABORATORYCLIA [id number] [address] OF [facility] aPTT Coag (PPP) [Time] 38.2 s High 23.0-32.4 [facility] Comment on above: Order Comment: Speci men Type: BLOOD SPECIMENOrdering Facility: [facility] Address: [address] [place] [address] Performed By: #### 1 4979-9 ####[facility]ORATORYCLIA [id number] [address] [place] aPTT Coag (PPP) [Time] 35.9 s High 23.0-32.4 [facility] Comment on above: Order Comment: Speci men Type: BLOOD SPECIMENOrdering Facility: [facility] Address: [address] [place] [address] Performed By: #### 1 4979-9 ####[facility]ORATORYCLIA [id number] [address] [place] aPTT Coag (PPP) [Time] 28.8 s Normal 23.0-32.4 [facility] Comment on above: Order Comment: Speci men Type: BLOOD SPECIMENOrdering Facility: [facility] Address: [address] [place] [address] Performed By: #### 1 4979-9 ####[facility]ORATORYCLIA [id number] [address] [place] ALLIED HEALTHon 07-23-2021 ALLIED HEALTH Normal [facility] ALLIED HEALTH Normal [facility] ALLIED HEALTH Normal [facility] ARTERIAL BLOOD GASESon 07-23 Base excess Calc (Bld) [Moles/Vol] 4 mmol/L High 0-2 [facility] Comment on above: Order Comment: Speci men Type: ARTERIAL BLOOD SPECIMENOrdering Facility: [facility] Address: [address] [place] [address] Performed By: #### A LLBG ####[facility]ORATORYCLIA [id number] [address] Body temperature 100.58 [degF] Normal [facility] Comment on above: Order Comment: Speci men Type: ARTERIAL BLOOD SPECIMENOrdering Facility: [facility] Address: [address] [place] [address] Performed By: #### A LLBG ####[facility]ORATORYCLIA [id number] [address] [place] CALCIUM IONIZED, PH CORRECTED 1.26 mmol/L Normal 1.08-1.30 [facility] Comment on above: Order Comment: Speci men Type: ARTERIAL BLOOD SPECIMENOrdering Facility: [facility] Address: [address] [place] [address] Performed By: #### A LLBG ####[facility] LABORATORYCLIA [id number] [address] [place] Calcium.ionized (BldV) [Mass/Vol] 1.25 mmol/L Normal 1.08-1.30 [facility] Comment on above: Order Comment: Speci men Type: ARTERIAL BLOOD SPECIMENOrdering Facility: [facility] Address: [address] [place] [address] Performed By: #### A LLBG ####[facility]ORATORYCLIA [id number] [place] [address] [place] Carboxyhemoglobin (BldA) [Mass fraction] 1.2 % Normal 0.0-2.0 [facility] Comment on above: Order Comment: Speci men Type: ARTERIAL BLOOD SPECIMENOrdering Facility: [facility] Address: [address] [place] [address] Result Comment: Carb oxyhemoglobin Reference Range for Smokers: 2.0-8.0% Performed By: #### A LLBG ####ClariticsFORMERLY [facility]ORATORYCLIA [id number] [address] [place] CO2 (Bld) [Partial pressure] 46 mm Hg Normal 36-46 [facility] Comment on above: Order Comment: Speci men Type: ARTERIAL BLOOD SPECIMENOrdering Facility: [facility] Address: [address] [place] [address] Performed By: #### A LLBG ####[facility]ORATORYCLIA [id number] [place] [address] [place] CO2 [Moles/Vol] 27 mmol/L Normal 22-28 [facility] Comment on above: Order Comment: Speci men Type: ARTERIAL BLOOD SPECIMENOrdering Facility: [facility] Address: [address] [place] [address] Performed By: #### A LLBG ####[facility]ORATORYCLIA [id number] [place] [address] [place] CO2 adjusted to patient's actual temperature (Bld) [Partial pressure] 48 mmHg High 36-46 [facility] Comment on above: Order Comment: Speci men Type: ARTERIAL BLOOD SPECIMENOrdering Facility: [facility] Address: [address] [place], [place] [address] Performed By: #### A LLBG ####[facility] LABORATORYCLIA [id number] [address] [place] Glucose [Mass/Vol] 134 mg/dL High 60-105 [facility] Comment on above: Order Comment: Speci men Type: ARTERIAL BLOOD SPECIMENOrdering Facility: [facility] Address: [address] [place] [address] Performed By: #### A LLBG ####[facility] LABORATORYCLIA [id number] [address] [place] HCO3 (Bld) [Moles/Vol] 29 mmol/L High 22-26 [facility] Comment on above: Order Comment: Speci men Type: ARTERIAL BLOOD SPECIMENOrdering Facility: [facility] Address: [address] [place] [address] Performed By: #### A LLBG ####[facility]ORATORYCLIA [id number] [address] [place] Hematocrit (Bld) [Volume fraction] 31.4 % Low 39.0-51.0 [facility] Comment on above: Order Comment: Speci men Type: ARTERIAL BLOOD SPECIMENOrdering Facility: [facility] Address: [address] [place] [address] Performed By: #### A LLBG ####[facility] LABORATORYCLIA [id number] [address] [place] Hemoglobin (Bld) [Mass/Vol] 10.2 g/dL Low 13.0-17.0 [facility] Comment on above: Order Comment: Speci men Type: ARTERIAL BLOOD SPECIMENOrdering Facility: [facility] Address: [address] [place] [address] Performed By: #### A LLBG ####[facility]ORATORYCLIA [id number] [address] [place] Methemoglobin (Bld) [Mass fraction] % Normal 0.0-1.5 [facility] Comment on above: Order Comment: Speci men Type: ARTERIAL BLOOD SPECIMENOrdering Facility: [facility] Address: [address] [place] [address] Performed By: #### A LLBG ####[facility]ORATORYCLIA [id number] [address] [place] O2 THERAPY Ventilator Normal [facility] Comment on above: Order Comment: Speci men Type: ARTERIAL BLOOD SPECIMENOrdering Facility: [facility] Address: [address] [place] [address] Performed By: #### A LLBG ####[facility]ORATORYCLIA [id number] [address] Oxygen (Bld) [Partial pressure] 113 mm Hg High 85-95 [facility] Comment on above: Order Comment: Speci men Type: ARTERIAL BLOOD SPECIMENOrdering Facility: [facility] Address: [address] [place] [address] Performed By: #### A LLBG ####[facility]ATORYCLIA [id number] [address] Oxygen adjusted to patient's actual temperature (Bld) [Partial pressure] 119 mmHg High 85-95 [facility] Comment on above: Order Comment: Speci men Type: ARTERIAL BLOOD SPECIMENOrdering Facility: [facility] Address: [address] [place] [address] Performed By: #### A LLBG ####[facility]ATORYCLIA [id number] [address] [place] OXYGEN SATURATION, ARTERIAL 98 % Normal 95-98 [facility] Comment on above: Order Comment: Speci men Type: ARTERIAL BLOOD SPECIMENOrdering Facility: [facility] Address: [address] [place] [address] Performed By: #### A LLBG ####[facility]ATORYCLIA [id number] [address] [place] Oxyhemoglobin (BldA) [Mass fraction] 96 % Normal 95-98 [facility] Comment on above: Order Comment: Speci men Type: ARTERIAL BLOOD SPECIMENOrdering Facility: [facility] Address: [address] [place] [address] Performed By: #### A LLBG ####[facility]ATORYCLIA [id number] [address] pH (Bld) 7.41 [pH] Normal 7.35-7.45 [facility] Comment on above: Order Comment: Speci men Type: ARTERIAL BLOOD SPECIMENOrdering Facility: [facility] Address: [address] [place] [address] Performed By: #### A LLBG ####[facility]ORATORYCLIA [id number] [address] pH adjusted to patient's actual temperature (Bld) 7.40 Normal 7.35-7.45 [facility] Comment on above: Order Comment: Speci men Type: ARTERIAL BLOOD SPECIMENOrdering Facility: [facility] Address: [address] [place] [address] Performed By: #### A LLBG ####[facility]ORATORYCLIA [id number] [address] Potassium [Moles/Vol] 4.3 mmol/L Normal 3.5-5.0 [facility] Comment on above: Order Comment: Speci men Type: ARTERIAL BLOOD SPECIMENOrdering Facility: [facility] Address: [address] [place] [address] Performed By: #### A LLBG ####[facility]ORATORYCLIA [id number] [address] [place] Sodium [Moles/Vol] 144 mmol/L Normal 136-144 [facility] Comment on above: Order Comment: Speci men Type: ARTERIAL BLOOD SPECIMENOrdering Facility: [facility] Address: [address] [place] [address] Performed By: #### A LLBG ####[facility]ORATORYCLIA [id number] [address] [place] Bacteria CSF Culton 07-24-19 22 Bacteria identified Cx Nom (CSF) Abnormal [facility] Comment on above: Performed By: #### 6 06-4 ####[facility]ORATORYCLIA [id number] [address] [place] Basic metabolic 2000 panelon 07-23-2021 Anion gap [Moles/Vol] 12 mmol/L Normal 9-18 [facility] Comment on above: Order Comment: Speci men Type: BLOOD SPECIMENOrdering Facility: [facility] Address: [address] [place] [address] Performed By: #### 2 4321-2 ####[facility] LABORATORYCLIA [id number] [address] [place] Calcium [Mass/Vol] 9.7 mg/dL Normal 8.5-10.2 [facility] Comment on above: Order Comment: Speci men Type: BLOOD SPECIMENOrdering Facility: [facility] Address: [address] [place] [address] Performed By: #### 2 4321-2 ####[facility] LABORATORYCLIA [id number] [address] [place] Chloride [Moles/Vol] 105 mmol/L Normal 97-105 [facility] Comment on above: Order Comment: Speci men Type: BLOOD SPECIMENOrdering Facility: [facility] Address: [address] [place] [address] Performed By: #### 2 4321-2 ####[facility]ORATORYCLIA [id number] [address] [place] CO2 [Moles/Vol] 28 mmol/L Normal 22-30 [facility] Comment on above: Order Comment: Speci men Type: BLOOD SPECIMENOrdering Facility: [facility] Address: [address] [place] [address] Performed By: #### 2 4321-2 ####[facility] LABORATORYCLIA [id number] [place] [address] [place] Creatinine [Mass/Vol] 0.78 mg/dL Normal 0.73-1.22 [facility] Comment on above: Order Comment: Shira feldman Type: BLOOD SPECIMENOrdering Facility: [facility] Address: [address] [address] Performed By: #### 2 4321-2 ####[facility] LABORATORYCLIA [id number] [address] OF [facility] ESTIMATED GLOMERULAR FILTRATION RATE 97 mL/min/1.73m??? Normal >=60 [facility] Comment on above: Order Comment: Shira feldman Type: BLOOD SPECIMENOrdering Facility: [facility] Address: [address] [place] [address] Result Comment: Luzmaria mated Glomerular Filtration Rate [...] actual GFR. Performed By: #### 2 4321-2 ####[facility] LABORATORYCLIA [id number] [place] [address] [place] Glucose [Mass/Vol] 127 mg/dL High 74-99 [facility] Comment on above: Order Comment: Shira feldman Type: BLOOD SPECIMENOrdering Facility: [facility] Address: [address] [place] [address] Result Comment: The [place] [employer] (ADA) provides guidance for cutoff [...] Standards of Medical Care in Diabetes 2016, [place] [employer]. Diabetes Care. 2016.39(Suppl 1). Performed By: #### 2 4321-2 ####[facility]ORATORYCLIA [id number] [address] [place] Potassium [Moles/Vol] 4.3 mmol/L Normal 3.7-5.1 [facility] Comment on above: Order Comment: Speci men Type: BLOOD SPECIMENOrdering Facility: [facility] Address: [address] [place] [address] Performed By: #### 2 4321-2 ####[facility]ORATORYCLIA [id number] [address] [place] Sodium [Moles/Vol] 145 mmol/L High 136-144 [facility] Comment on above: Order Comment: Speci men Type: BLOOD SPECIMENOrdering Facility: [facility] Address: [address] [place] [address] Performed By: #### 2 4321-2 ####[facility]ORATORYCLIA [id number] [address] STATES [facility] Urea nitrogen [Mass/Vol] 37 mg/dL High 9-24 [facility] Comment on above: Order Comment: Speci men Type: BLOOD SPECIMENOrdering Facility: [facility] Address: [address] [place] [address] Performed By: #### 2 4321-2 ####[facility] LABORATORYCLIA [id number] [address] [place] C diff Tox gens Stl Ql MEGAN+p robeon 07-23-2021 C. difficile toxin genes MEGAN+probe Ql (Stl) Negative Normal Negative for C. difficile toxin by PCR [facility] Comment on above: Order Comment: Speci men Type: STOOL SPECIMENOrdering Facility: [facility] Address: [address] [place] [address] Performed By: #### 5 4067-4 ####[facility]ORATORYCLIA [id number] [address] [place] CBC W Auto Differential pane l (Bld)on 07-23-2021 Basophils (Bld) [#/Vol] 0.07 10*3/uL Normal <0.11 [facility] Comment on above: Order Comment: Speci men Type: BLOOD SPECIMENOrdering Facility: [facility] Address: [address] [place] [address] Performed By: #### 5 7021-8 ####[facility]ATORYCLIA [id number] [address] [place] Basophils/100 WBC (Bld) 0.5 % Normal [facility] Comment on above: Order Comment: Speci men Type: BLOOD SPECIMENOrdering Facility: [facility] Address: [address] [place] [address] Performed By: #### 5 7021-8 ####[facility]ORATORYCLIA [id number] [address] [place] Differential cell count method Nom (Bld) Auto Normal [facility] Comment on above: Order Comment: Speci men Type: BLOOD SPECIMENOrdering Facility: [facility] Address: [address] [place] [address] Performed By: #### 5 7021-8 ####[facility]ORATORYCLIA [id number] [address] [place] Eosinophils (Bld) [#/Vol] 10*3/uL Normal <0.46 [facility] Comment on above: Order Comment: Speci men Type: BLOOD SPECIMENOrdering Facility: [facility] Address: [address] [place] [address] Performed By: #### 5 7021-8 ####[facility]ATORYCLIA [id number] [address] [place] Eosinophils/100 WBC (Bld) 0.2 % Normal [facility] Comment on above: Order Comment: Speci men Type: BLOOD SPECIMENOrdering Facility: [facility] Address: [address] [place] [address] Performed By: #### 5 7021-8 ####[facility]ATORYCLIA [id number] [address] Erythrocyte distribution width (RBC) [Ratio] 16.7 % High 11.5-15.0 [facility] Comment on above: Order Comment: Speci men Type: BLOOD SPECIMENOrdering Facility: [facility] Address: [address] [place] [address] Performed By: #### 5 7021-8 ####[facility]ORATORYCLIA [id number] [address] Hematocrit (Bld) [Volume fraction] 32.8 % Low 39.0-51.0 [facility] Comment on above: Order Comment: Speci men Type: BLOOD SPECIMENOrdering Facility: [facility] Address: [address] [place] [address] Performed By: #### 5 7021-8 ####[facility]ORATORYCLIA [id number] [address] Hemoglobin (Bld) [Mass/Vol] 9.7 g/dL Low 13.0-17.0 [facility] Comment on above: Order Comment: Speci men Type: BLOOD SPECIMENOrdering Facility: [facility] Address: [address] [place] [address] Performed By: #### 5 7021-8 ####[facility] LABORATORYCLIA [id number] [address] IMMATURE GRAN % 0.7 % Normal [facility] Comment on above: Order Comment: Speci men Type: BLOOD SPECIMENOrdering Facility: [facility] Address: [address] [place] [address] Performed By: #### 5 7021-8 ####[facility] LABORATORYCLIA [id number] [address] IMMATURE GRAN ABS 0.09 k/uL Normal <0.10 [facility] Comment on above: Order Comment: Speci men Type: BLOOD SPECIMENOrdering Facility: [facility] Address: [address] [place] [address] Performed By: #### 5 7021-8 ####[facility] LABORATORYCLIA [id number] [address] STATES OF [facility] Lymphocytes (Bld) [#/Vol] 1.94 10*3/uL Normal 1.00-4.00 [facility] Comment on above: Order Comment: Speci men Type: BLOOD SPECIMENOrdering Facility: [facility] Address: [address] [place] [address] Performed By: #### 5 7021-8 ####[facility] LABORATORYCLIA [id number] [address] Lymphocytes/100 WBC (Bld) 14.6 % Normal [facility] Comment on above: Order Comment: Speci men Type: BLOOD SPECIMENOrdering Facility: [facility] Address: [address] [place] [address] Performed By: #### 5 7021-8 ####[facility] LABORATORYCLIA [id number] [address] [place] [facility] MCH (RBC) [Entitic mass] 27.2 pg Normal 26.0-34.0 [facility] Comment on above: Order Comment: Speci men Type: BLOOD SPECIMENOrdering Facility: [facility] Address: [address] [place] [address] Performed By: #### 5 7021-8 ####[facility] LABORATORYCLIA [id number] [address] [place] MCHC (RBC) [Mass/Vol] 29.6 g/dL Low 30.5-36.0 [facility] Comment on above: Order Comment: Speci men Type: BLOOD SPECIMENOrdering Facility: [facility] Address: [address] [place] [address] Performed By: #### 5 7021-8 ####[facility] LABORATORYCLIA [id number] [address] [place] MCV (RBC) [Entitic vol] 92.1 fL Normal 80.0-100.0 [facility] Comment on above: Order Comment: Speci men Type: BLOOD SPECIMENOrdering Facility: [facility] Address: [address] [place] [address] Performed By: #### 5 7021-8 ####[facility] LABORATORYCLIA [id number] [place] [address] [place] Monocytes (Bld) [#/Vol] 0.74 10*3/uL Normal <0.87 [facility] Comment on above: Order Comment: Speci men Type: BLOOD SPECIMENOrdering Facility: [facility] Address: [address] [place] [address] Performed By: #### 5 7021-8 ####[facility] LABORATORYCLIA [id number] [address] [place] Monocytes/100 WBC (Bld) 5.6 % Normal [facility] Comment on above: Order Comment: Speci men Type: BLOOD SPECIMENOrdering Facility: [facility] Address: [address] [place] [address] Performed By: #### 5 7021-8 ####[facility] LABORATORYCLIA [id number] [place] [address] [place] Neutrophils (Bld) [#/Vol] 10.43 10*3/uL High 1.45-7.50 [facility] Comment on above: Order Comment: Speci men Type: BLOOD SPECIMENOrdering Facility: [facility] Address: [address] [place] [address] Performed By: #### 5 7021-8 ####[facility] LABORATORYCLIA [id number] [place] [address] [place] Neutrophils/100 WBC (Bld) 78.4 % Normal [facility] Comment on above: Order Comment: Speci men Type: BLOOD SPECIMENOrdering Facility: [facility] Address: [address] [place] [address] Performed By: #### 5 7021-8 ####[facility]ORATORYCLIA [id number] [address] [place] Nucleated RBC (Bld) [#/Vol] 10*3/uL Normal <0.01 [facility] Comment on above: Order Comment: Speci men Type: BLOOD SPECIMENOrdering Facility: [facility] Address: [address] [place] [address] Performed By: #### 5 7021-8 ####[facility] LABORATORYCLIA [id number] [address] [place] Nucleated RBC/100 WBC (Bld) [Ratio] 0.0 /100 WBC Normal [facility] Comment on above: Order Comment: Speci men Type: BLOOD SPECIMENOrdering Facility: [facility] Address: [address] [place] [address] Performed By: #### 5 7021-8 ####[facility] LABORATORYCLIA [id number] [address] [place] Platelet mean volume (Bld) [Entitic vol] 11.0 fL Normal 9.0-12.7 [facility] Comment on above: Order Comment: Speci men Type: BLOOD SPECIMENOrdering Facility: [facility] Address: [address] [place] [address] Performed By: #### 5 7021-8 ####[facility]ORATORYCLIA [id number] [address] [place] Platelets (Bld) [#/Vol] 381 10*3/uL Normal 150-400 [facility] Comment on above: Order Comment: Speci men Type: BLOOD SPECIMENOrdering Facility: [facility] Address: [address] [place] [address] Performed By: #### 5 7021-8 ####[facility]ORATORYCLIA [id number] [address] [place] RBC (Bld) [#/Vol] 3.56 10*6/uL Low 4.20-6.00 [facility] Comment on above: Order Comment: Speci men Type: BLOOD SPECIMENOrdering Facility: [facility] Address: [address] [place] [address] Performed By: #### 5 7021-8 ####[facility] LABORATORYCLIA [id number] [address] [place] WBC (Bld) [#/Vol] 13.29 10*3/uL High 3.70-11.00 [facility] Comment on above: Order Comment: Speci men Type: BLOOD SPECIMENOrdering Facility: [facility] Address: [address] [place] [address] Performed By: #### 5 7021-8 ####[facility] LABORATORYCLIA [id number] [address] OF [facility] CONSULT PROGon 07-23-2021 CONSULT PROG Normal [facility] CONSULT PROG Normal [facility] CSF MANUAL DIFFon 07-23-2021 DIF TTL, CSF 100 cells counted Normal [facility] Comment on above: Order Comment: Speci men Type: CEREBROSPINAL FLUIDOrdering Facility: [facility] Address: [address] [place] [address] Performed By: #### L [id number], [id number], 55768-4 ####[facility]ORATORYCLIA [id number] [place] [address] [place] LYMPH%, CSF 2 % Low 50-90 [facility] Comment on above: Order Comment: Speci men Type: CEREBROSPINAL FLUIDOrdering Facility: [facility] Address: [address] [place] [address] Performed By: #### L [id number], [id number], 49554-6 ####[facility]ORATORYCLIA [id number] [address] [place] MONO%, CSF 9 % Low 10-50 [facility] Comment on above: Order Comment: Speci men Type: CEREBROSPINAL FLUIDOrdering Facility: [facility] Address: [address] [place] [address] Performed By: #### L [id number], [id number], 62677-5 ####[facility]ORATORYCLIA [id number] [address] [place] NEUT%, CSF 89 % High 0-3 [facility] Comment on above: Order Comment: Speci men Type: CEREBROSPINAL FLUIDOrdering Facility: [facility] Address: [address] [place] [address] Performed By: #### L [id number], [id number], 73441-5 ####[facility]ORATORYCLIA [id number] [address] CSF PATHOLOGIST INTERP (LAB REFLEX ORDER-NO BILL)on 07-23-2021 CSF STAFF REVIEW Negative for maligna nt cells. Numerous bacterial organisms present, cocci in pairs and chains. Recommend correlation with CSF culture results. Normal [facility] Comment on above: Order Comment: Speci men Type: CEREBROSPINAL FLUIDOrdering Facility: [facility] Address: [address] [place] [address] Performed By: #### L [id number], [id number], 92835-6 ####[facility]ORATORYCLIA [id number] [address] Pathologist name Reviewed by Amador Stevens MD Normal [facility] Comment on above: Order Comment: Speci men Type: CEREBROSPINAL FLUIDOrdering Facility: [facility] Address: [address] [place] [address] Performed By: #### L [id number], CRI2164, 51182-3 ####[facility]ORATORYCLIA [id number] [address] [place] CT BRAIN WO IVCONon 07-24-[address] BRAIN WO IVCON Normal [facility] Cell count panel (CSF)on Clarity (CSF) Clear Normal Clear [facility] Comment on above: Order Comment: Speci men Type: CEREBROSPINAL FLUIDOrdering Facility: [facility] Address: [address] [place] [address] Performed By: #### L [id number], CRV2051, 14627-1 ####[facility]ORATORYCLIA [id number] [address] Clarity (Unsp spec) Not Indicated Normal Clear [facility] Comment on above: Order Comment: Speci men Type: CEREBROSPINAL FLUIDOrdering Facility: [facility] Address: [address] [place] [address] Performed By: #### L [id number], ZHX7340, 51488-5 ####[facility]ORATORYCLIA [id number] [address] Color (CSF) Colorless Normal Colorless [facility] Comment on above: Order Comment: Speci men Type: CEREBROSPINAL FLUIDOrdering Facility: [facility] Address: [address] [place] [address] Performed By: #### L [id number], IVL2233, 76077-5 ####[facility]ORATORYCLIA [id number] [address] Color (Spun CSF) Not Indicated Normal Colorless [facility] Comment on above: Order Comment: Speci men Type: CEREBROSPINAL FLUIDOrdering Facility: [facility] Address: [address] [place] [address] Performed By: #### L [id number], VPW2726, 39517-7 ####[facility]ORATORYCLIA [id number] [address] CSF [employer] Normal [facility] Comment on above: Order Comment: Speci men Type: CEREBROSPINAL FLUIDOrdering Facility: [facility] Address: [address] [place] [address] Performed By: #### L [id number], [id number], 58737-0 ####[facility]ORATORYCLIA [id number] [address] RBC Manual cnt (CSF) [#/Vol] 7 cells/uL High 0-5 [facility] Comment on above: Order Comment: Speci men Type: CEREBROSPINAL FLUIDOrdering Facility: [facility] Address: [address] [place] [address] Performed By: #### L [id number], LEE9911, 96593-1 ####[facility]ORATORYCLIA [id number] [place] [id number] [place] WBC Manual cnt (CSF) [#/Vol] 193 cells/uL High 0-5 [facility] Comment on above: Order Comment: Speci men Type: CEREBROSPINAL FLUIDOrdering Facility: [facility] Address: [address] [place] [address] Performed By: #### L [id number], IRV4444, 14328-3 ####[facility]ORATORYCLIA [id number] [place] [id number] [facility] Glucose CSF-[facility] 2 Glucose (CSF) [Mass/Vol] 81 mg/dL High 40-70 [facility] Comment on above: Order Comment: Speci men Type: CEREBROSPINAL FLUIDOrdering Facility: [facility] Address: [address] [place] [address] Result Comment: Lumb ar CSF glucose values of healthy patients are approximately 60% of the plasma values and must always be compared with a concurrently measured plasma value for adequate clinical interpretation.References: 1. Glucose HK (GLUC3) [package insert V 12.0 [place]]. [employer], [place], [place]. September 2015. 2. Michelle Moore, Loki H. (2015). Chapter 7: Glucose and Lactate. Marianela Alcocer al.(eds.), Cerebrospinal Fluid in Clinical Neurology. [place]: [employer]. Performed By: #### 2 342-4, 2880-3 ####[facility]ORATORYCLIA [id number] [place] [id number] [place] NURSING PROGon 07-23-2021 NURSING PROG Normal [facility] NURSING PROG Normal [facility] Prot CSF-ncon 07-23-2021 Protein (CSF) [Mass/Vol] 68 mg/dL High 15-45 [facility] Comment on above: Order Comment: Speci men Type: CEREBROSPINAL FLUIDOrdering Facility: [facility] Address: [address] [place] [address] Performed By: #### 2 342-4, 2880-3 ####[facility]ORATORYCLIA [id number] [address] Urinalysis complete panel (U )on 07-23-2021 Bilirubin Ql (U) Negative Normal Negative [facility] Comment on above: Order Comment: Speci men Type: URINE SPECIMENOrdering Facility: [facility] Address: [address] [place] [address] Performed By: #### 2 4356-8 ####[facility]ORATORYCLIA [id number] [address] Clarity (Unsp spec) Clear Normal Clear [facility] Comment on above: Order Comment: Speci men Type: URINE SPECIMENOrdering Facility: [facility] Address: [address] [place] [address] Performed By: #### 2 4356-8 ####[facility]ORATORYCLIA [id number] [address] Color (U) Light Yellow Normal yellow [facility] Comment on above: Order Comment: Speci men Type: URINE SPECIMENOrdering Facility: [facility] Address: [address] [place] [address] Performed By: #### 2 4356-8 ####[facility]ORATORYCLIA [id number] [address] Glucose Test strip (U) [Mass/Vol] Negative Normal Negative [facility] Comment on above: Order Comment: Speci men Type: URINE SPECIMENOrdering Facility: [facility] Address: [address] [place] [address] Performed By: #### 2 4356-8 ####[facility]ATORYCLIA [id number] [address] Hemoglobin Ql (U) Negative Normal Negative [facility] Comment on above: Order Comment: Speci men Type: URINE SPECIMENOrdering Facility: [facility] Address: [address] [place] [address] Performed By: #### 2 4356-8 ####[facility]ORATORYCLIA [id number] [address] Ketones Ql (U) Negative Normal Negative [facility] Comment on above: Order Comment: Speci men Type: URINE SPECIMENOrdering Facility: [facility] Address: [address] [place] [address] Performed By: #### 2 4356-8 ####[facility]ORATORYCLIA [id number] [address] Leukocyte esterase Test strip Ql (U) Negative Normal Negative [facility] Comment on above: Order Comment: Speci men Type: URINE SPECIMENOrdering Facility: [facility] Address: [address] [place] [address] Performed By: #### 2 4356-8 ####[facility]ORATORYCLIA [id number] [address] Nitrite Ql (U) Negative Normal Negative [facility] Comment on above: Order Comment: Speci men Type: URINE SPECIMENOrdering Facility: [facility] Address: [address] [place] [address] Performed By: #### 2 4356-8 ####[facility]ORATORYCLIA [id number] [address] [place] pH (U) 6.0 [pH] Normal 5.0-8.0 [facility] Comment on above: Order Comment: Speci men Type: URINE SPECIMENOrdering Facility: [facility] Address: [address] [place] [address] Performed By: #### 2 4356-8 ####[facility]ATORYCLIA [id number] [address] Protein (U) [Mass/Vol] 1+ Abnormal Negative [facility] Comment on above: Order Comment: Speci men Type: URINE SPECIMENOrdering Facility: [facility] Address: [address] [place] [address] Performed By: #### 2 4356-8 ####[facility]ORATORYCLIA [id number] [address] STATES [facility] RBC LM.HPF (Urine sed) [#/Area] 0-3 /HPF Normal 0-3 /HPF [facility] Comment on above: Order Comment: Speci men Type: URINE SPECIMENOrdering Facility: [facility] Address: [address] [place] [address] Performed By: #### 2 4356-8 ####[facility]ORATORYCLIA [id number] [address] Specific gravity (U) [Rel density] 1.018 Normal 1.005-1.030 [facility] Comment on above: Order Comment: Speci men Type: URINE SPECIMENOrdering Facility: [facility] Address: [address] [place] [address] Performed By: #### 2 4356-8 ####[facility]ORATORYCLIA [id number] [address] Urobilinogen Ql (U) Normal Normal Negative [facility] Comment on above: Order Comment: Speci men Type: URINE SPECIMENOrdering Facility: [facility] Address: [address] [place] [address] Performed By: #### 2 4356-8 ####[facility]ORATORYCLIA [id number] [address] WBC LM.HPF (Urine sed) [#/Area] 0-5 /HPF Normal 0-5 /HPF [facility] Comment on above: Order Comment: Speci men Type: URINE SPECIMENOrdering Facility: [facility] Address: [address] [place] [address] Performed By: #### 2 4356-8 ####[facility]ORATORYCLIA [id number] [address] Vancomycin random [Mass/Vol] on 07-23-2021 Vancomycin [Mass/Vol] 12.9 ug/mL Normal 10.0-20.0 [facility] Comment on above: Order Comment: Speci men Type: BLOOD SPECIMENOrdering Facility: [facility] Address: [address] [place] [address] Result Comment: Refe rence ranges and high/low indicator flags are provided as general guidelines only. The treating physician must determine appropriate target levels/dosing based on the specific clinical situation. Performed By: #### 4 091-5 ####[facility]ORATORYCLIA [id number] [address] OF [facility] XR CHEST 1V FRONTALon 2021 XR CHEST 1V FRONTAL Normal [facility] XR CHEST 1V FRONTAL Normal [facility] aPTT PPPon 07-23-2021 aPTT Coag (PPP) [Time] 32.3 s Normal 23.0-32.4 [facility] Comment on above: Order Comment: Speci men Type: BLOOD SPECIMENOrdering Facility: [facility] Address: [address] [place] [address] Performed By: #### 1 4979-9 ####[facility]ORATORYCLIA [id number] [address] aPTT Coag (PPP) [Time] 57.9 s High 23.0-32.4 [facility] Comment on above: Order Comment: Speci men Type: BLOOD SPECIMENOrdering Facility: [facility] Address: [address] [place] [address] Performed By: #### 1 4979-9 ####[facility]ORATORYCLIA [id number] [address] aPTT Coag (PPP) [Time] 46.3 s High 23.0-32.4 [facility] Comment on above: Order Comment: Speci men Type: BLOOD SPECIMENOrdering Facility: [facility] Address: [address] [place] [address] Performed By: #### 1 4979-9 ####[facility]ORATORYCLIA [id number] [address] [place] Basic metabolic 2000 panelon 07-22-2021 Anion gap [Moles/Vol] 8 mmol/L Low 9-18 [facility] Comment on above: Order Comment: Speci men Type: BLOOD SPECIMENOrdering Facility: [facility] Address: [address] [place] [address] Performed By: #### 2 4321-2 ####[facility] LABORATORYCLIA [id number] [place] [address] [place] Calcium [Mass/Vol] 9.5 mg/dL Normal 8.5-10.2 [facility] Comment on above: Order Comment: Speci men Type: BLOOD SPECIMENOrdering Facility: [facility] Address: [address] [place] [address] Performed By: #### 2 4321-2 ####[facility]ORATORYCLIA [id number] [place] [address] [place] Chloride [Moles/Vol] 105 mmol/L Normal 97-105 [facility] Comment on above: Order Comment: Speci men Type: BLOOD SPECIMENOrdering Facility: [facility] Address: [address] [place] [address] Performed By: #### 2 4321-2 ####[facility]ATORYCLIA [id number] [place] [address] [place] CO2 [Moles/Vol] 32 mmol/L High 22-30 [facility] Comment on above: Order Comment: Speci men Type: BLOOD SPECIMENOrdering Facility: [facility] Address: [address] [place] [address] Performed By: #### 2 4321-2 ####[facility]ORATORYCLIA [id number] [place] [address] [place] Creatinine [Mass/Vol] 0.75 mg/dL Normal 0.73-1.22 [facility] Comment on above: Order Comment: Speci men Type: BLOOD SPECIMENOrdering Facility: [facility] Address: [address] [place] [address] Performed By: #### 2 4321-2 ####[facility]ORATORYCLIA [id number] [place] [address] [place] ESTIMATED GLOMERULAR FILTRATION RATE 98 mL/min/1.73m??? Normal >=60 [facility] Comment on above: Order Comment: Shira feldman Type: BLOOD SPECIMENOrdering Facility: [facility] Address: [address] [place] [address] Result Comment: Luzmaria mated Glomerular Filtration Rate [...] GFR. Performed By: #### 2 4321-2 ####[facility]GIA [id number] [place] [address] [place] Glucose [Mass/Vol] 128 mg/dL High 74-99 [facility] Comment on above: Order Comment: Shira feldman Type: BLOOD SPECIMENOrdering Facility: [facility] Address: [address] [place] [address] Result Comment: The [place] Diabetes [employer] (ADA) provides guidance for cutoff [...] Standards of Medical Care in Diabetes 2016, [place] [employer]. Diabetes Care. 2016.39(Suppl 1). Performed By: #### 2 4321-2 ####[facility]ORATORYCLIA [id number] [place] [id number] [place] Potassium [Moles/Vol] 3.7 mmol/L Normal 3.7-5.1 [facility] Comment on above: Order Comment: Speci men Type: BLOOD SPECIMENOrdering Facility: [facility] Address: [address] [place] [address] Performed By: #### 2 4321-2 ####[facility]ORATORYCLIA [id number] [address] [place] Sodium [Moles/Vol] 145 mmol/L High 136-144 [facility] Comment on above: Order Comment: Speci men Type: BLOOD SPECIMENOrdering Facility: [facility] Address: [address] [place] [address] Performed By: #### 2 4321-2 ####[facility]ORATORYCLIA [id number] [place] [address] [place] Urea nitrogen [Mass/Vol] 39 mg/dL High 9-24 [facility] Comment on above: Order Comment: Speci men Type: BLOOD SPECIMENOrdering Facility: [facility] Address: [address] [place] [address] Performed By: #### 2 4321-2 ####[facility]ORATORYCLIA [id number] [address] [place] CASE MANAGEMon 07-22-2021 CASE MANAGEM Normal [facility] [facility] W Auto Differential pane l (Bld)on 07-22-2021 Basophils (Bld) [#/Vol] 0.06 10*3/uL Normal <0.11 [facility] Comment on above: Order Comment: Speci men Type: BLOOD SPECIMENOrdering Facility: [facility] Address: [address] [place] [address] Performed By: #### 5 7021-8 ####[facility] LABORATORYCLIA [id number] [address] [place] [facility] Basophils/100 WBC (Bld) 0.5 % Normal [facility] Comment on above: Order Comment: Speci men Type: BLOOD SPECIMENOrdering Facility: [facility] Address: [address] [place] [address] Performed By: #### 5 7021-8 ####[facility]ORATORYCLIA [id number] [address] Differential cell count method Nom (Bld) Auto Normal [facility] Comment on above: Order Comment: Speci men Type: BLOOD SPECIMENOrdering Facility: [facility] Address: [address] [place] [address] Performed By: #### 5 7021-8 ####[facility] LABORATORYCLIA [id number] [address] Eosinophils (Bld) [#/Vol] 0.44 10*3/uL Normal <0.46 [facility] Comment on above: Order Comment: Speci men Type: BLOOD SPECIMENOrdering Facility: [facility] Address: [address] [place] [address] Performed By: #### 5 7021-8 ####[facility] LABORATORYCLIA [id number] [address] Eosinophils/100 WBC (Bld) 3.9 % Normal [facility] Comment on above: Order Comment: Speci men Type: BLOOD SPECIMENOrdering Facility: [facility] Address: [address] [place] [address] Performed By: #### 5 7021-8 ####[facility] LABORATORYCLIA [id number] [address] [place] Erythrocyte distribution width (RBC) [Ratio] 17.0 % High 11.5-15.0 [facility] Comment on above: Order Comment: Speci men Type: BLOOD SPECIMENOrdering Facility: [facility] Address: [address] [place] [address] Performed By: #### 5 7021-8 ####[facility] LABORATORYCLIA [id number] [address] Hematocrit (Bld) [Volume fraction] 32.0 % Low 39.0-51.0 [facility] Comment on above: Order Comment: Speci men Type: BLOOD SPECIMENOrdering Facility: [facility] Address: [address] [address] Performed By: #### 5 7021-8 ####[facility]ATORYCLIA [id number] [address] [place] Hemoglobin (Bld) [Mass/Vol] 9.3 g/dL Low 13.0-17.0 [facility] Comment on above: Order Comment: Speci men Type: BLOOD SPECIMENOrdering Facility: [facility] Address: [address] [place] [address] Performed By: #### 5 7021-8 ####[facility] LABORATORYCLIA [id number] [address] IMMATURE GRAN % 0.5 % Normal [facility] Comment on above: Order Comment: Speci men Type: BLOOD SPECIMENOrdering Facility: [facility] Address: [address] [place] [address] Performed By: #### 5 7021-8 ####[facility] LABORATORYCLIA [id number] [address] [place] [facility] IMMATURE GRAN ABS 0.06 k/uL Normal <0.10 [facility] Comment on above: Order Comment: Speci men Type: BLOOD SPECIMENOrdering Facility: [facility] Address: [address] [place] [address] Performed By: #### 5 7021-8 ####[facility] LABORATORYCLIA [id number] [address] [place] Lymphocytes (Bld) [#/Vol] 1.83 10*3/uL Normal 1.00-4.00 [facility] Comment on above: Order Comment: Speci men Type: BLOOD SPECIMENOrdering Facility: [facility] Address: [address] [place] [address] Performed By: #### 5 7021-8 ####[facility]ATORYCLIA [id number] [address] [place] Lymphocytes/100 WBC (Bld) 16.1 % Normal [facility] Comment on above: Order Comment: Speci men Type: BLOOD SPECIMENOrdering Facility: [facility] Address: [address] [place] [address] Performed By: #### 5 7021-8 ####[facility] LABORATORYCLIA [id number] [address] MCH (RBC) [Entitic mass] 27.0 pg Normal 26.0-34.0 [facility] Comment on above: Order Comment: Speci men Type: BLOOD SPECIMENOrdering Facility: [facility] Address: [address] [place] [address] Performed By: #### 5 7021-8 ####[facility]ORATORYCLIA [id number] [address] MCHC (RBC) [Mass/Vol] 29.1 g/dL Low 30.5-36.0 [facility] Comment on above: Order Comment: Speci men Type: BLOOD SPECIMENOrdering Facility: [facility] Address: [address] [place] [address] Performed By: #### 5 7021-8 ####[facility]ORATORYCLIA [id number] [address] MCV (RBC) [Entitic vol] 92.8 fL Normal 80.0-100.0 [facility] Comment on above: Order Comment: Speci men Type: BLOOD SPECIMENOrdering Facility: [facility] Address: [address] [place] [address] Performed By: #### 5 7021-8 ####[facility]ORATORYCLIA [id number] [address] Monocytes (Bld) [#/Vol] 0.87 10*3/uL High <0.87 [facility] Comment on above: Order Comment: Speci men Type: BLOOD SPECIMENOrdering Facility: [facility] Address: [address] [place] [address] Performed By: #### 5 7021-8 ####[facility] LABORATORYCLIA [id number] [address] [place] Monocytes/100 WBC (Bld) 7.6 % Normal [facility] Comment on above: Order Comment: Speci men Type: BLOOD SPECIMENOrdering Facility: [facility] Address: [address] [place] [address] Performed By: #### 5 7021-8 ####[facility]ORATORYCLIA [id number] [place] [address] [place] Neutrophils (Bld) [#/Vol] 8.12 10*3/uL High 1.45-7.50 [facility] Comment on above: Order Comment: Speci men Type: BLOOD SPECIMENOrdering Facility: [facility] Address: [address] [place] [address] Performed By: #### 5 7021-8 ####[facility] LABORATORYCLIA [id number] [address] [place] Neutrophils/100 WBC (Bld) 71.4 % Normal [facility] Comment on above: Order Comment: Speci men Type: BLOOD SPECIMENOrdering Facility: [facility] Address: [address] [place] [address] Performed By: #### 5 7021-8 ####[facility]ORATORYCLIA [id number] [place] [address] [place] Nucleated RBC (Bld) [#/Vol] 10*3/uL Normal <0.01 [facility] Comment on above: Order Comment: Speci men Type: BLOOD SPECIMENOrdering Facility: [facility] Address: [address] [place] [address] Performed By: #### 5 7021-8 ####[facility] LABORATORYCLIA [id number] [address] [place] Nucleated RBC/100 WBC (Bld) [Ratio] 0.0 /100 WBC Normal [facility] Comment on above: Order Comment: Speci men Type: BLOOD SPECIMENOrdering Facility: [facility] Address: [address] [place] [address] Performed By: #### 5 7021-8 ####[facility]ORATORYCLIA [id number] [address] Platelet mean volume (Bld) [Entitic vol] 10.8 fL Normal 9.0-12.7 [facility] Comment on above: Order Comment: Speci men Type: BLOOD SPECIMENOrdering Facility: [facility] Address: [address] [place] [address] Performed By: #### 5 7021-8 ####[facility]ORATORYCLIA [id number] [address] [place] Platelets (Bld) [#/Vol] 362 10*3/uL Normal 150-400 [facility] Comment on above: Order Comment: Speci men Type: BLOOD SPECIMENOrdering Facility: [facility] Address: [address] [place] [address] Performed By: #### 5 7021-8 ####[facility]ORATORYCLIA [id number] [address] [place] RBC (Bld) [#/Vol] 3.45 10*6/uL Low 4.20-6.00 [facility] Comment on above: Order Comment: Speci men Type: BLOOD SPECIMENOrdering Facility: [facility] Address: [address] [place] [address] Performed By: #### 5 7021-8 ####[facility] LABORATORYCLIA [id number] [address] [place] WBC (Bld) [#/Vol] 11.38 10*3/uL High 3.70-11.00 [facility] Comment on above: Order Comment: Speci men Type: BLOOD SPECIMENOrdering Facility: [facility] Address: [address] [place], [place] [address] Performed By: #### 5 7021-8 ####[facility]ORATORYCLIA [id number] [address] [place] Magnesium SerPl-mCncon 07-22 Magnesium [Mass/Vol] 2.3 mg/dL Normal 1.7-2.3 [facility] Comment on above: Order Comment: Speci men Type: BLOOD SPECIMENOrdering Facility: [facility] Address: [address] [place] [address] Performed By: #### 1 9123-9, 2777-1, 01670-8 ####[facility]ORATORYCLIA [id number] [address] NT-proBNP SerPl-ncon 07-22 Natriuretic peptide.B prohormone N-Terminal [Mass/Vol] 328 pg/mL High <125 [facility] Comment on above: Order Comment: Speci men Type: BLOOD SPECIMENOrdering Facility: [facility] Address: [address] [place] [address] Performed By: #### 1 9123-9, 2777-1, 56887-5 ####[facility]ORATORYCLIA [id number] [address] NURSING PROGon 07-22-2021 NURSING PROG Normal [facility] NUTRITIONon 07-22-2021 NUTRITION Normal [facility] Phosphate SerPl-[facility] UPMCon 07-22 Phosphate [Mass/Vol] 3.5 mg/dL Normal 2.7-4.8 [facility] Comment on above: Order Comment: Speci men Type: BLOOD SPECIMENOrdering Facility: [facility] Address: [address] [place] [address] Performed By: #### 1 9123-9, 2777-1, 64421-7 ####[facility]REM[facility]CLIA [id number] [address] THERAPY NTon 07-22-2021 THERAPY NT Normal [facility] THERAPY NT Normal [facility] aPTT PPPon 07-22-2021 aPTT Coag (PPP) [Time] 50.1 s High 23.0-32.4 [facility] Comment on above: Order Comment: Speci men Type: BLOOD SPECIMENOrdering Facility: [facility] Address: [address] [place] [address] Performed By: #### 1 4979-9 ####[facility]ORATORYCLIA [id number] [address] STATES [place] [facility] ALLIED HEALTHon 07-21-2021 ALLIED HEALTH Normal [facility] Bacteria Spec Resp Culton Bacteria identified Respiratory culture Nom (Unsp spec) Abnormal [facility] Comment on above: Performed By: #### 3 2355-0 ####[facility]ORATORYCLIA [id number] [address] OF [facility] Basic metabolic 2000 panelon 07-21-2021 Anion gap [Moles/Vol] 9 mmol/L Normal 9-18 [facility] Comment on above: Order Comment: Speci men Type: BLOOD SPECIMENOrdering Facility: [facility] Address: [address] [place] [address] Performed By: #### 1 9123-9, 2777-1, 52586-1 ####[facility]ORATORYCLIA [id number] [place] [address] [place] Calcium [Mass/Vol] 9.9 mg/dL Normal 8.5-10.2 [facility] Comment on above: Order Comment: Speci men Type: BLOOD SPECIMENOrdering Facility: [facility] Address: [address] [place] [address] Performed By: #### 1 9123-9, 2777-1, 08526-6 ####[facility]ORATORYCLIA [id number] [address] [place] Chloride [Moles/Vol] 103 mmol/L Normal 97-105 [facility] Comment on above: Order Comment: Speci men Type: BLOOD SPECIMENOrdering Facility: [facility] Address: [address] [place] [address] Performed By: #### 1 9123-9, 2777-1, 97709-6 ####[facility]ORATORYCLIA [id number] [place] [address] [place] CO2 [Moles/Vol] 33 mmol/L High 22-30 [facility] Comment on above: Order Comment: Speci men Type: BLOOD SPECIMENOrdering Facility: [facility] Address: [address] [place] [address] Performed By: #### 1 9123-9, 2777-1, 39910-1 ####[facility]ORATORYCLIA [id number] [address] [place] Creatinine [Mass/Vol] 0.80 mg/dL Normal 0.73-1.22 [facility] Comment on above: Order Comment: Speci men Type: BLOOD SPECIMENOrdering Facility: [facility] Address: [address] [place] [address] Performed By: #### 1 9123-9, 27711-04, 25621-4 ####[facility]REM[facility]CLIA [id number] [address] ESTIMATED GLOMERULAR FILTRATION RATE 96 mL/min/1.73m??? Normal >=60 [facility] Comment on above: Order Comment: Speci men Type: BLOOD SPECIMENOrdering Facility: [facility] Address: [address] [place] [address] Result Comment: Luzmaria mated Glomerular Filtration Rate [...] GFR. Performed By: #### 1 9123-9, 2777, 70867-7 ####[facility]ORATORYCLIA [id number] [address] [place] Glucose [Mass/Vol] 148 mg/dL High 74-99 [facility] Comment on above: Order Comment: Speci men Type: BLOOD SPECIMENOrdering Facility: [facility] Address: [address] [place] [address] Result Comment: The [place] [employer] (ADA) provides guidance for cutoff [...] Standards of Medical Care in Diabetes 2016, [place] [employer]. Diabetes Care. 2016.39(Suppl 1). Performed By: #### 1 9123-9, 2777-, 86383-6 ####[facility] LABORATORYCLIA [id number] [place] [address] [place] Potassium [Moles/Vol] 4.1 mmol/L Normal 3.7-5.1 [facility] Comment on above: Order Comment: Speci men Type: BLOOD SPECIMENOrdering Facility: [facility] Address: [address] [place] [address] Performed By: #### 1 9123-9, 2777-, 24518-6 ####[facility]ORATORYCLIA [id number] [place] [address] [place] Sodium [Moles/Vol] 145 mmol/L High 136-144 [facility] Comment on above: Order Comment: Speci men Type: BLOOD SPECIMENOrdering Facility: [facility] Address: [address] Performed By: #### 1 9123-9, 2777-, 69941-0 ####[facility]ORATORYCLIA [id number] [place] [address] [place] Urea nitrogen [Mass/Vol] 40 mg/dL High 9-24 [facility] Comment on above: Order Comment: Johni men Type: BLOOD SPECIMENOrdering Facility: [facility] Address: [address] Performed By: #### 1 9123-9, 2777-1, 48540-7 ####[facility]ATORYCLIA [id number] [address] [place] CBC W Auto Differential pane l (Bld)on 07-21-2021 Basophils (Bld) [#/Vol] 0.06 10*3/uL Normal <0.11 [facility] Comment on above: Order Comment: Speci men Type: BLOOD SPECIMENOrdering Facility: [facility] Address: [address] [place] [address] Performed By: #### 5 7021-8 ####[facility]ORATORYCLIA [id number] [address] Basophils/100 WBC (Bld) 0.4 % Normal [facility] Comment on above: Order Comment: Speci men Type: BLOOD SPECIMENOrdering Facility: [facility] Address: [address] [place] [address] Performed By: #### 5 7021-8 ####[facility]ORATORYCLIA [id number] [address] Differential cell count method Nom (Bld) Auto Normal [facility] Comment on above: Order Comment: Speci men Type: BLOOD SPECIMENOrdering Facility: [facility] Address: [address] [place] [address] Performed By: #### 5 7021-8 ####[facility]ATORYCLIA [id number] [place] [address] [place] Eosinophils (Bld) [#/Vol] 0.04 10*3/uL Normal <0.46 [facility] Comment on above: Order Comment: Speci men Type: BLOOD SPECIMENOrdering Facility: [facility] Address: [address] [place] [address] Performed By: #### 5 7021-8 ####[facility]ORYCLIA [id number] [address] Eosinophils/100 WBC (Bld) 0.3 % Normal [facility] Comment on above: Order Comment: Speci men Type: BLOOD SPECIMENOrdering Facility: [facility] Address: [address] [place] [address] Performed By: #### 5 7021-8 ####[facility]ORATORYCLIA [id number] [address] [place] Erythrocyte distribution width (RBC) [Ratio] 17.0 % High 11.5-15.0 [facility] Comment on above: Order Comment: Speci men Type: BLOOD SPECIMENOrdering Facility: [facility] Address: [address] [place] [address] Performed By: #### 5 7021-8 ####[facility]ORATORYCLIA [id number] [address] Hematocrit (Bld) [Volume fraction] 33.1 % Low 39.0-51.0 [facility] Comment on above: Order Comment: Speci men Type: BLOOD SPECIMENOrdering Facility: [facility] Address: [address] [place] [address] Performed By: #### 5 7021-8 ####[facility]ORATORYCLIA [id number] [address] [place] Hemoglobin (Bld) [Mass/Vol] 9.7 g/dL Low 13.0-17.0 [facility] Comment on above: Order Comment: Speci men Type: BLOOD SPECIMENOrdering Facility: [facility] Address: [address] [place] [address] Performed By: #### 5 7021-8 ####[facility]ORATORYCLIA [id number] [address] [place] IMMATURE GRAN % 0.5 % Normal [facility] Comment on above: Order Comment: Speci men Type: BLOOD SPECIMENOrdering Facility: [facility] Address: [address] [place] [address] Performed By: #### 5 7021-8 ####[facility]ORATORYCLIA [id number] [address] [place] IMMATURE GRAN ABS 0.07 k/uL Normal <0.10 [facility] Comment on above: Order Comment: Speci men Type: BLOOD SPECIMENOrdering Facility: [facility] Address: [address] [place] [address] Performed By: #### 5 7021-8 ####[facility]ORATORYCLIA [id number] [address] Lymphocytes (Bld) [#/Vol] 1.99 10*3/uL Normal 1.00-4.00 [facility] Comment on above: Order Comment: Speci men Type: BLOOD SPECIMENOrdering Facility: [facility] Address: [address] [place] [address] Performed By: #### 5 7021-8 ####[facility]ORATORYCLIA [id number] [address] Lymphocytes/100 WBC (Bld) 13.4 % Normal [facility] Comment on above: Order Comment: Speci men Type: BLOOD SPECIMENOrdering Facility: [facility] Address: [address] [place] [address] Performed By: #### 5 7021-8 ####[facility]ORATORYCLIA [id number] [address] MCH (RBC) [Entitic mass] 27.2 pg Normal 26.0-34.0 [facility] Comment on above: Order Comment: Speci men Type: BLOOD SPECIMENOrdering Facility: [facility] Address: [address] [place] [address] Performed By: #### 5 7021-8 ####[facility]ORATORYCLIA [id number] [address] MCHC (RBC) [Mass/Vol] 29.3 g/dL Low 30.5-36.0 [facility] Comment on above: Order Comment: Speci men Type: BLOOD SPECIMENOrdering Facility: [facility] Address: [address] [place] [address] Performed By: #### 5 7021-8 ####[facility]ATORYCLIA [id number] [place] [address] [place] MCV (RBC) [Entitic vol] 92.7 fL Normal 80.0-100.0 [facility] Comment on above: Order Comment: Speci men Type: BLOOD SPECIMENOrdering Facility: [facility] Address: [address] [place] [address] Performed By: #### 5 7021-8 ####[facility]ATORYCLIA [id number] [place] [address] [place] Monocytes (Bld) [#/Vol] 1.10 10*3/uL High <0.87 [facility] Comment on above: Order Comment: Speci men Type: BLOOD SPECIMENOrdering Facility: [facility] Address: [address] [place] [address] Performed By: #### 5 7021-8 ####[facility]ORATORYCLIA [id number] [address] Monocytes/100 WBC (Bld) 7.4 % Normal [facility] Comment on above: Order Comment: Speci men Type: BLOOD SPECIMENOrdering Facility: [facility] Address: [address] [place] [address] Performed By: #### 5 7021-8 ####[facility]ORATORYCLIA [id number] [place] [address] [place] Neutrophils (Bld) [#/Vol] 11.61 10*3/uL High 1.45-7.50 [facility] Comment on above: Order Comment: Speci men Type: BLOOD SPECIMENOrdering Facility: [facility] Address: [address] [place] [address] Performed By: #### 5 7021-8 ####[facility]ORYCLIA [id number] [address] [place] Neutrophils/100 WBC (Bld) 78.0 % Normal [facility] Comment on above: Order Comment: Speci men Type: BLOOD SPECIMENOrdering Facility: [facility] Address: [address] Performed By: #### 5 7021-8 ####[facility]ORATORYCLIA [id number] [address] Nucleated RBC (Bld) [#/Vol] 10*3/uL Normal <0.01 [facility] Comment on above: Order Comment: Speci men Type: BLOOD SPECIMENOrdering Facility: [facility] Address: [address] [place] [address] Performed By: #### 5 7021-8 ####[facility]ORATORYCLIA [id number] [address] Nucleated RBC/100 WBC (Bld) [Ratio] 0.0 /100 WBC Normal [facility] Comment on above: Order Comment: Speci men Type: BLOOD SPECIMENOrdering Facility: [facility] Address: [address] [place] [address] Performed By: #### 5 7021-8 ####[facility]ORATORYCLIA [id number] [address] [place] Platelet mean volume (Bld) [Entitic vol] 10.4 fL Normal 9.0-12.7 [facility] Comment on above: Order Comment: Speci men Type: BLOOD SPECIMENOrdering Facility: [facility] Address: [address] [place] [address] Performed By: #### 5 7021-8 ####[facility]ORATORYCLIA [id number] [address] [place] Platelets (Bld) [#/Vol] 396 10*3/uL Normal 150-400 [facility] Comment on above: Order Comment: Speci men Type: BLOOD SPECIMENOrdering Facility: [facility] Address: [address] [place] [address] Performed By: #### 5 7021-8 ####[facility] LABORATORYCLIA [id number] [place] [address] [place] RBC (Bld) [#/Vol] 3.57 10*6/uL Low 4.20-6.00 [facility] Comment on above: Order Comment: Speci men Type: BLOOD SPECIMENOrdering Facility: [facility] Address: [address] [place] [address] Performed By: #### 5 7021-8 ####[facility] LABORATORYCLIA [id number] [place] [address] [place] WBC (Bld) [#/Vol] 14.87 10*3/uL High 3.70-11.00 [facility] Comment on above: Order Comment: Speci men Type: BLOOD SPECIMENOrdering Facility: [facility] Address: [address] [place] [address] Performed By: #### 5 7021-8 ####[facility] LABORATORYCLIA [id number] [address] OF [facility] Gas and Carbon monoxide pane l (BldV)on 07-21-2021 Base excess Calc (BldV) [Moles/Vol] 7 mmol/L High 0-2 [facility] Comment on above: Order Comment: Speci men Type: VENOUS BLOOD SPECIMENOrdering Facility: [facility] Address: [address] [place] [address] Performed By: #### 2 4344-4 ####[facility] LABORATORYCLIA [id number] [address] STATES OF [facility] Body temperature 98.6 [degF] Normal [facility] Comment on above: Order Comment: Speci men Type: VENOUS BLOOD SPECIMENOrdering Facility: [facility] Address: [address] [place] [address] Performed By: #### 2 4344-4 ####[facility] LABORATORYCLIA [id number] [address] STATES [facility] CALCIUM IONIZED, PH CORRECTED 1.21 mmol/L Normal 1.08-1.30 [facility] Comment on above: Order Comment: Speci men Type: VENOUS BLOOD SPECIMENOrdering Facility: [facility] Address: [address] [place] [address] Performed By: #### 2 4344-4 ####[facility] LABORATORYCLIA [id number] [place] [address] [place] Calcium.ionized (BldV) [Mass/Vol] 1.23 mmol/L Normal 1.08-1.30 [facility] Comment on above: Order Comment: Speci men Type: VENOUS BLOOD SPECIMENOrdering Facility: [facility] Address: [address] [place] [address] Performed By: #### 2 4344-4 ####[facility] LABORATORYCLIA [id number] [address] [place] Carboxyhemoglobin (BldV) [Mass fraction] 2.3 % High 0.0-2.0 [facility] Comment on above: Order Comment: Speci men Type: VENOUS BLOOD SPECIMENOrdering Facility: [facility] Address: [address] [place] [address] Result Comment: Carb oxyhemoglobin Reference Range for Smokers: 2.0-8.0% Performed By: #### 2 4344-4 ####[facility]ORATORYCLIA [id number] [place] [address] [place] CO2 (BldV) [Partial pressure] 58 mm[Hg] High 42-55 [facility] Comment on above: Order Comment: Speci men Type: VENOUS BLOOD SPECIMENOrdering Facility: [facility] Address: [address] [place] [address] Performed By: #### 2 4344-4 ####[facility]ORATORYCLIA [id number] [address] [place] CO2 [Moles/Vol] 31 mmol/L High 25-29 [facility] Comment on above: Order Comment: Speci men Type: VENOUS BLOOD SPECIMENOrdering Facility: [facility] Address: [address] [place] [address] Performed By: #### 2 4344-4 ####[facility]ATORYCLIA [id number] [address] [place] Glucose [Mass/Vol] 146 mg/dL High 60-105 [facility] Comment on above: Order Comment: Speci men Type: VENOUS BLOOD SPECIMENOrdering Facility: [facility] Address: [address] [place] [address] Performed By: #### 2 4344-4 ####[facility] LABORATORYCLIA [id number] [place] [address] [place] HCO3 (Bld) [Moles/Vol] 33 mmol/L High 24-28 [facility] Comment on above: Order Comment: Speci men Type: VENOUS BLOOD SPECIMENOrdering Facility: [facility] Address: [address] [place] [address] Performed By: #### 2 4344-4 ####[facility] LABORATORYCLIA [id number] [address] [place] Hematocrit (Bld) [Volume fraction] 30.1 % Low 39.0-51.0 [facility] Comment on above: Order Comment: Speci men Type: VENOUS BLOOD SPECIMENOrdering Facility: [facility] Address: [address] [place] [address] Performed By: #### 2 4344-4 ####[facility] LABORATORYCLIA [id number] [address] [place] Hemoglobin (Bld) [Mass/Vol] 9.7 g/dL Low 13.0-17.0 [facility] Comment on above: Order Comment: Speci men Type: VENOUS BLOOD SPECIMENOrdering Facility: [facility] Address: [address] [address] Performed By: #### 2 4344-4 ####[facility]ORATORYCLIA [id number] [address] [place] Methemoglobin (Bld) [Mass fraction] % Normal 0.0-1.5 [facility] Comment on above: Order Comment: Speci men Type: VENOUS BLOOD SPECIMENOrdering Facility: [facility] Address: [address] [place], [place] [address] Performed By: #### 2 4344-4 ####[facility]ORATORYCLIA [id number] [address] O2 THERAPY NC = Nasal Cannula Normal [facility] Comment on above: Order Comment: Speci men Type: VENOUS BLOOD SPECIMENOrdering Facility: [facility] Address: [address] [place] [address] Performed By: #### 2 4344-4 ####[facility] LABORATORYCLIA [id number] [address] [place] Oxygen (BldV) [Partial pressure] 64 mm[Hg] High 35-45 [facility] Comment on above: Order Comment: Speci men Type: VENOUS BLOOD SPECIMENOrdering Facility: [facility] Address: [address] [place] [address] Performed By: #### 2 4344-4 ####[facility]ORATORYCLIA [id number] [address] [place] Oxygen saturation in Blood 90 % High 60-85 [facility] Comment on above: Order Comment: Speci men Type: VENOUS BLOOD SPECIMENOrdering Facility: [facility] Address: [address] [place] [address] Performed By: #### 2 4344-4 ####[facility] LABORATORYCLIA [id number] [address] [place] Oxyhemoglobin (BldV) [Mass fraction] 87 % High 60-85 [facility] Comment on above: Order Comment: Speci men Type: VENOUS BLOOD SPECIMENOrdering Facility: [facility] Address: [address] [place] [address] Performed By: #### 2 4344-4 ####[facility]ORATORYCLIA [id number] [address] [place] pH (BldV) 7.38 [pH] Normal 7.32-7.42 [facility] Comment on above: Order Comment: Speci men Type: VENOUS BLOOD SPECIMENOrdering Facility: [facility] Address: [address] [place] [address] Performed By: #### 2 4344-4 ####[facility] LABORATORYCLIA [id number] [place] [address] [place] Potassium [Moles/Vol] 3.8 mmol/L Normal 3.5-5.0 [facility] Comment on above: Order Comment: Speci men Type: VENOUS BLOOD SPECIMENOrdering Facility: [facility] Address: [address] [place] [address] Performed By: #### 2 4344-4 ####[facility] LABORATORYCLIA [id number] [place] [address] [place] Sodium [Moles/Vol] 145 mmol/L High 136-144 [facility] Comment on above: Order Comment: Speci men Type: VENOUS BLOOD SPECIMENOrdering Facility: [facility] Address: [address] [place] [address] Performed By: #### 2 4344-4 ####[facility] LABORATORYCLIA [id number] [place] [address] [place] Base excess Calc (BldV) [Moles/Vol] 8 mmol/L High 0-2 [facility] Comment on above: Order Comment: Speci men Type: VENOUS BLOOD SPECIMENOrdering Facility: [facility] Address: [address] [place] [address] Performed By: #### 2 4344-4 ####[facility]ORATORYCLIA [id number] [address] [place] Body temperature 100.22 [degF] Normal [facility] Comment on above: Order Comment: Speci men Type: VENOUS BLOOD SPECIMENOrdering Facility: [facility] Address: [address] [place] [address] Performed By: #### 2 4344-4 ####[facility]ORATORYCLIA [id number] [place] [address] [place] CALCIUM IONIZED, PH CORRECTED 1.25 mmol/L Normal 1.08-1.30 [facility] Comment on above: Order Comment: Speci men Type: VENOUS BLOOD SPECIMENOrdering Facility: [facility] Address: [address] [place] [address] Performed By: #### 2 4344-4 ####[facility] LABORATORYCLIA [id number] [place] [address] [place] Calcium.ionized (BldV) [Mass/Vol] 1.24 mmol/L Normal 1.08-1.30 [facility] Comment on above: Order Comment: Speci men Type: VENOUS BLOOD SPECIMENOrdering Facility: [facility] Address: [address] [place] [address] Performed By: #### 2 4344-4 ####[facility]ORATORYCLIA [id number] [address] [place] Carboxyhemoglobin (BldV) [Mass fraction] 2.5 % High 0.0-2.0 [facility] Comment on above: Order Comment: Speci men Type: VENOUS BLOOD SPECIMENOrdering Facility: [facility] Address: [address] [place] [address] Result Comment: Carb oxyhemoglobin Reference Range for Smokers: 2.0-8.0% Performed By: #### 2 4344-4 ####[facility]ORATORYCLIA [id number] [place] [address] [place] CO2 (BldV) [Partial pressure] 53 mm[Hg] Normal 42-55 [facility] Comment on above: Order Comment: Speci men Type: VENOUS BLOOD SPECIMENOrdering Facility: [facility] Address: [address] [place] [address] Performed By: #### 2 4344-4 ####[facility]ORATORYCLIA [id number] [address] [place] CO2 [Moles/Vol] 31 mmol/L High 25-29 [facility] Comment on above: Order Comment: Speci men Type: VENOUS BLOOD SPECIMENOrdering Facility: [facility] Address: [address] [place] [address] Performed By: #### 2 4344-4 ####[facility]ORATORYCLIA [id number] [address] [place] CO2 adjusted to patient's actual temperature (BldV) [Partial pressure] 56 mmHg High 42-55 [facility] Comment on above: Order Comment: Speci men Type: VENOUS BLOOD SPECIMENOrdering Facility: [facility] Address: [address] [place] [address] Performed By: #### 2 4344-4 ####[facility]ORATORYCLIA [id number] [address] [place] Glucose [Mass/Vol] 131 mg/dL High 60-105 [facility] Comment on above: Order Comment: Speci men Type: VENOUS BLOOD SPECIMENOrdering Facility: [facility] Address: [address] [place] [address] Performed By: #### 2 4344-4 ####[facility]ORATORYCLIA [id number] [address] [place] HCO3 (Bld) [Moles/Vol] 33 mmol/L High 24-28 [facility] Comment on above: Order Comment: Speci men Type: VENOUS BLOOD SPECIMENOrdering Facility: [facility] Address: [address] [place] [address] Performed By: #### 2 4344-4 ####[facility]ORATORYCLIA [id number] [address] [place] Hematocrit (Bld) [Volume fraction] 30.8 % Low 39.0-51.0 [facility] Comment on above: Order Comment: Speci men Type: VENOUS BLOOD SPECIMENOrdering Facility: [facility] Address: [address] [place] [address] Performed By: #### 2 4344-4 ####[facility]ORATORYCLIA [id number] [address] [place] Hemoglobin (Bld) [Mass/Vol] 10.0 g/dL Low 13.0-17.0 [facility] Comment on above: Order Comment: Speci men Type: VENOUS BLOOD SPECIMENOrdering Facility: [facility] Address: [address] [address] Performed By: #### 2 4344-4 ####[facility]ORATORYCLIA [id number] [address] Methemoglobin (Bld) [Mass fraction] % Normal 0.0-1.5 [facility] Comment on above: Order Comment: Speci men Type: VENOUS BLOOD SPECIMENOrdering Facility: [facility] Address: [address] [address] Performed By: #### 2 4344-4 ####[facility]ORATORYCLIA [id number] [address] O2 THERAPY NC = Nasal Cannula Normal [facility] Comment on above: Order Comment: Speci men Type: VENOUS BLOOD SPECIMENOrdering Facility: [facility] Address: [address] [address] Performed By: #### 2 4344-4 ####[facility]ORATORYCLIA [id number] [address] Oxygen (BldV) [Partial pressure] 58 mm[Hg] High 35-45 [facility] Comment on above: Order Comment: Speci men Type: VENOUS BLOOD SPECIMENOrdering Facility: [facility] Address: [address] [address] Performed By: #### 2 4344-4 ####[facility]ORATORYCLIA [id number] [address] Oxygen adjusted to patient's actual temperature (BldV) [Partial pressure] 61 mmHg High 35-45 [facility] Comment on above: Order Comment: Speci men Type: VENOUS BLOOD SPECIMENOrdering Facility: [facility] Address: [address] [address] Performed By: #### 2 4344-4 ####[facility] LABORATORYCLIA [id number] [place] [address] [place] Oxygen saturation in Blood 88 % High 60-85 [facility] Comment on above: Order Comment: Speci men Type: VENOUS BLOOD SPECIMENOrdering Facility: [facility] Address: [address] [address] Performed By: #### 2 4344-4 ####[facility]ORATORYCLIA [id number] [address] [place] Oxyhemoglobin (BldV) [Mass fraction] 85 % Normal 60-85 [facility] Comment on above: Order Comment: Speci men Type: VENOUS BLOOD SPECIMENOrdering Facility: [facility] Address: [address] [place] [address] Performed By: #### 2 4344-4 ####[facility]ORATORYCLIA [id number] [address] [place] pH (BldV) 7.41 [pH] Normal 7.32-7.42 [facility] Comment on above: Order Comment: Speci men Type: VENOUS BLOOD SPECIMENOrdering Facility: [facility] Address: [address] [place] [address] Performed By: #### 2 4344-4 ####[facility]ORATORYCLIA [id number] [address] pH adjusted to patient's actual temperature (BldV) 7.40 Normal 7.32-7.42 [facility] Comment on above: Order Comment: Speci men Type: VENOUS BLOOD SPECIMENOrdering Facility: [facility] Address: [address] [address] Performed By: #### 2 4344-4 ####[facility]ORATORYCLIA [id number] [address] [place] Potassium [Moles/Vol] 4.0 mmol/L Normal 3.5-5.0 [facility] Comment on above: Order Comment: Speci men Type: VENOUS BLOOD SPECIMENOrdering Facility: [facility] Address: [address] [place] [address] Performed By: #### 2 4344-4 ####[facility]ORATORYCLIA [id number] [address] STATES OF [facility] Sodium [Moles/Vol] 146 mmol/L High 136-144 [facility] Comment on above: Order Comment: Speci men Type: VENOUS BLOOD SPECIMENOrdering Facility: [facility] Address: [address] [place] [address] Performed By: #### 2 4344-4 ####[facility]ORATORYCLIA [id number] [address] [place] Magnesium SerPl-mCncon 07-21 Magnesium [Mass/Vol] 2.5 mg/dL High 1.7-2.3 [facility] Comment on above: Order Comment: Speci men Type: BLOOD SPECIMENOrdering Facility: [facility] Address: [address] [place] [address] Performed By: #### 1 9123-9, 2777-1, 98236-3 ####[facility]ORATORYCLIA [id number] [address] OF [facility] NURSING PROGon 07-21-2021 NURSING PROG Normal [facility] Phosphate SerPl-mCncon 07-21 Phosphate [Mass/Vol] 3.7 mg/dL Normal 2.7-4.8 [facility] Comment on above: Order Comment: Speci men Type: BLOOD SPECIMENOrdering Facility: [facility] Address: [address] [place] [address] Performed By: #### 1 9123-9, 2777-1, 98271-2 ####[facility]ORATORYCLIA [id number] [address] [place] THERAPY NTon 07-21-2021 THERAPY NT Normal [facility] XR CHEST 1V FRONTALon 2021 XR CHEST 1V FRONTAL Normal [facility] aPTT PPPon 07-21-2021 aPTT Coag (PPP) [Time] 53.0 s High 23.0-32.4 [facility] Comment on above: Order Comment: Speci men Type: BLOOD SPECIMENOrdering Facility: [facility] Address: [address] [place] [address] Performed By: #### 1 4979-9 ####[facility]ORATORYCLIA [id number] [place] [address] [place] ALLIED HEALTHon 07-20-2021 ALLIED HEALTH Normal [facility] Basic metabolic 2000 panelon 07-20-2021 Anion gap [Moles/Vol] 8 mmol/L Low 9-18 [facility] Comment on above: Order Comment: Speci men Type: BLOOD SPECIMENOrdering Facility: [facility] Address: [address] [place] [address] Performed By: #### 2 4321-2, , 2776-05 ####[facility] LABORATORYCLIA [id number] [place] [address] [place] Calcium [Mass/Vol] 9.7 mg/dL Normal 8.5-10.2 [facility] Comment on above: Order Comment: Speci men Type: BLOOD SPECIMENOrdering Facility: [facility] Address: [address] [place] [address] Performed By: #### 2 4321-2, , 2776-05 ####[facility]ORATORYCLIA [id number] [place] [address] [place] Chloride [Moles/Vol] 104 mmol/L Normal 97-105 [facility] Comment on above: Order Comment: Speci men Type: BLOOD SPECIMENOrdering Facility: [facility] Address: [address] [place], [place] [address] Performed By: #### 2 4321-2, , 2776-05 ####[facility] LABORATORYCLIA [id number] [place] [address] [place] CO2 [Moles/Vol] 34 mmol/L High 22-30 [facility] Comment on above: Order Comment: Speci men Type: BLOOD SPECIMENOrdering Facility: [facility] Address: [address] [place] [address] Performed By: #### 2 4321-2, 70700-3, 2776-05 ####[facility]CLIA [id number] [place] [id number] [place] [facility] Creatinine [Mass/Vol] 0.76 mg/dL Normal 0.73-1.22 [facility] Comment on above: Order Comment: Shira feldamn Type: BLOOD SPECIMENOrdering Facility: [facility] Address: [address] [place] [address] Performed By: #### 2 4321-2, , 2776-05 ####[facility]GIA [id number] [address] OF [facility] ESTIMATED GLOMERULAR FILTRATION RATE 97 mL/min/1.73m??? Normal >=60 [facility] Comment on above: Order Comment: Shira feldman Type: BLOOD SPECIMENOrdering Facility: [facility] Address: [address] [address] Result Comment: Luzmaria mated Glomerular Filtration Rate [...] Performed By: #### 2 4321-2, , 2776-05 ####[facility] LABORATORYIA [id number] [address] [id number] [place] Glucose [Mass/Vol] 123 mg/dL High 74-99 [facility] Comment on above: Order Comment: Shira feldman Type: BLOOD SPECIMENOrdering Facility: [facility] Address: [address] [address] Result Comment: The [place] [employer] (ADA) provides guidance for cutoff [...] Standards of Medical Care in Diabetes 2016, [place] [employer]. Diabetes Care. 2016.39(Suppl 1). Performed By: #### 2 4321-2, , 2776-05 ####[facility] LABORATORYCLIA [id number] [place] [address] [place] Potassium [Moles/Vol] 4.4 mmol/L Normal 3.7-5.1 [facility] Comment on above: Order Comment: Shira feldman Type: BLOOD SPECIMENOrdering Facility: [facility] Address: [address] [place] [address] Performed By: #### 2 432-2, , 2776-05 ####[facility] LABORATORYCLIA [id number] [address] [place] Sodium [Moles/Vol] 146 mmol/L High 136-144 [facility] Comment on above: Order Comment: Shira feldman Type: BLOOD SPECIMENOrdering Facility: [facility] Address: [address] [place] [address] Performed By: #### 2 4321-2, , 2776-05 ####[facility] LABORATORYCLIA [id number] [place] [address] [place] Urea nitrogen [Mass/Vol] 38 mg/dL High 9-24 [facility] Comment on above: Order Comment: Johni francia Type: BLOOD SPECIMENOrdering Facility: [facility] Address: [address] [place] [address] Performed By: #### 2 4321-2, , 2776-05 ####[facility] LABORATORYCLIA [id number] [place] [address] [place] CASE MANAGEMon 03-16-2022 CASE MANAGEM Normal [facility] CBC W Auto Differential pane l (Bld)on 07-20-2021 Basophils (Bld) [#/Vol] 0.05 10*3/uL Normal <0.11 [facility] Comment on above: Order Comment: Speci men Type: BLOOD SPECIMENOrdering Facility: [facility] Address: [address] [place] [address] Performed By: #### 5 7021-8 ####[facility]ORATORYCLIA [id number] [address] [place] Basophils/100 WBC (Bld) 0.5 % Normal [facility] Comment on above: Order Comment: Speci men Type: BLOOD SPECIMENOrdering Facility: [facility] Address: [address] [place] [address] Performed By: #### 5 7021-8 ####[facility] LABORATORYCLIA [id number] [address] [place] Differential cell count method Nom (Bld) Auto Normal [facility] Comment on above: Order Comment: Speci men Type: BLOOD SPECIMENOrdering Facility: [facility] Address: [address] [place] [address] Performed By: #### 5 7021-8 ####[facility] LABORATORYCLIA [id number] [place] [address] [place] Eosinophils (Bld) [#/Vol] 0.43 10*3/uL Normal <0.46 [facility] Comment on above: Order Comment: Speci men Type: BLOOD SPECIMENOrdering Facility: [facility] Address: [address] [place] [address] Performed By: #### 5 7021-8 ####[facility]ORATORYCLIA [id number] [address] [place] Eosinophils/100 WBC (Bld) 4.1 % Normal [facility] Comment on above: Order Comment: Speci men Type: BLOOD SPECIMENOrdering Facility: [facility] Address: [address] [place] [address] Performed By: #### 5 7021-8 ####[facility] LABORATORYCLIA [id number] [address] Erythrocyte distribution width (RBC) [Ratio] 16.7 % High 11.5-15.0 [facility] Comment on above: Order Comment: Speci men Type: BLOOD SPECIMENOrdering Facility: [facility] Address: [address] [place] [address] Performed By: #### 5 7021-8 ####[facility] LABORATORYCLIA [id number] [address] Hematocrit (Bld) [Volume fraction] 33.0 % Low 39.0-51.0 [facility] Comment on above: Order Comment: Speci men Type: BLOOD SPECIMENOrdering Facility: [facility] Address: [address] [place] [address] Performed By: #### 5 7021-8 ####[facility] LABORATORYCLIA [id number] [address] Hemoglobin (Bld) [Mass/Vol] 9.7 g/dL Low 13.0-17.0 [facility] Comment on above: Order Comment: Speci men Type: BLOOD SPECIMENOrdering Facility: [facility] Address: [address] [place] [address] Performed By: #### 5 7021-8 ####[facility] LABORATORYCLIA [id number] [address] [place] IMMATURE GRAN % 0.4 % Normal [facility] Comment on above: Order Comment: Speci men Type: BLOOD SPECIMENOrdering Facility: [facility] Address: [address] [place] [address] Performed By: #### 5 7021-8 ####[facility] LABORATORYCLIA [id number] [address] IMMATURE GRAN ABS 0.04 k/uL Normal <0.10 [facility] Comment on above: Order Comment: Speci men Type: BLOOD SPECIMENOrdering Facility: [facility] Address: [address] [place] [address] Performed By: #### 5 7021-8 ####[facility] LABORATORYCLIA [id number] [address] [place] Lymphocytes (Bld) [#/Vol] 1.99 10*3/uL Normal 1.00-4.00 [facility] Comment on above: Order Comment: Speci men Type: BLOOD SPECIMENOrdering Facility: [facility] Address: [address] [place] [address] Performed By: #### 5 7021-8 ####[facility] LABORATORYCLIA [id number] [address] Lymphocytes/100 WBC (Bld) 18.8 % Normal [facility] Comment on above: Order Comment: Speci men Type: BLOOD SPECIMENOrdering Facility: [facility] Address: [address] [place] [address] Performed By: #### 5 7021-8 ####[facility] LABORATORYCLIA [id number] [address] [place] MCH (RBC) [Entitic mass] 27.8 pg Normal 26.0-34.0 [facility] Comment on above: Order Comment: Speci men Type: BLOOD SPECIMENOrdering Facility: [facility] Address: [address] [place] [address] Performed By: #### 5 7021-8 ####[facility] LABORATORYCLIA [id number] [address] [place] MCHC (RBC) [Mass/Vol] 29.4 g/dL Low 30.5-36.0 [facility] Comment on above: Order Comment: Speci men Type: BLOOD SPECIMENOrdering Facility: [facility] Address: [address] [place] [address] Performed By: #### 5 7021-8 ####[facility] LABORATORYCLIA [id number] [place] [address] [place] MCV (RBC) [Entitic vol] 94.6 fL Normal 80.0-100.0 [facility] Comment on above: Order Comment: Speci men Type: BLOOD SPECIMENOrdering Facility: [facility] Address: [address] [place] [address] Performed By: #### 5 7021-8 ####[facility]ATORYCLIA [id number] [place] [address] [place] Monocytes (Bld) [#/Vol] 0.82 10*3/uL Normal <0.87 [facility] Comment on above: Order Comment: Speci men Type: BLOOD SPECIMENOrdering Facility: [facility] Address: [address] [place] [address] Performed By: #### 5 7021-8 ####[facility]ORATORYCLIA [id number] [address] [place] Monocytes/100 WBC (Bld) 7.8 % Normal [facility] Comment on above: Order Comment: Speci men Type: BLOOD SPECIMENOrdering Facility: [facility] Address: [address] [place] [address] Performed By: #### 5 7021-8 ####[facility] LABORATORYCLIA [id number] [address] [place] Neutrophils (Bld) [#/Vol] 7.23 10*3/uL Normal 1.45-7.50 [facility] Comment on above: Order Comment: Speci men Type: BLOOD SPECIMENOrdering Facility: [facility] Address: [address] [place] [address] Performed By: #### 5 7021-8 ####[facility]ATORYCLIA [id number] [address] [place] Neutrophils/100 WBC (Bld) 68.4 % Normal [facility] Comment on above: Order Comment: Speci men Type: BLOOD SPECIMENOrdering Facility: [facility] Address: [address] [place] [address] Performed By: #### 5 7021-8 ####[facility]ORATORYCLIA [id number] [address] [place] Nucleated RBC (Bld) [#/Vol] 10*3/uL Normal <0.01 [facility] Comment on above: Order Comment: Speci men Type: BLOOD SPECIMENOrdering Facility: [facility] Address: [address] [place] [address] Performed By: #### 5 7021-8 ####[facility] LABORATORYCLIA [id number] [address] [place] Nucleated RBC/100 WBC (Bld) [Ratio] 0.0 /100 WBC Normal [facility] Comment on above: Order Comment: Speci men Type: BLOOD SPECIMENOrdering Facility: [facility] Address: [address] [place] [address] Performed By: #### 5 7021-8 ####[facility]ORATORYCLIA [id number] [address] Platelet mean volume (Bld) [Entitic vol] 10.5 fL Normal 9.0-12.7 [facility] Comment on above: Order Comment: Speci men Type: BLOOD SPECIMENOrdering Facility: [facility] Address: [address] [place] [address] Performed By: #### 5 7021-8 ####[facility] LABORATORYCLIA [id number] [address] [place] Platelets (Bld) [#/Vol] 400 10*3/uL Normal 150-400 [facility] Comment on above: Order Comment: Speci men Type: BLOOD SPECIMENOrdering Facility: [facility] Address: [address] [place] [address] Performed By: #### 5 7021-8 ####[facility] LABORATORYCLIA [id number] [address] [place] RBC (Bld) [#/Vol] 3.49 10*6/uL Low 4.20-6.00 [facility] Comment on above: Order Comment: Speci men Type: BLOOD SPECIMENOrdering Facility: [facility] Address: [address] [place] [address] Performed By: #### 5 7021-8 ####[facility]ORATORYCLIA [id number] [address] WBC (Bld) [#/Vol] 10.56 10*3/uL Normal 3.70-11.00 [facility] Comment on above: Order Comment: Speci men Type: BLOOD SPECIMENOrdering Facility: [facility] Address: [address] [place] [address] Performed By: #### 5 7021-8 ####[facility]ORATORYCLIA [id number] [address] CONSULT PROGon 07-20-2021 CONSULT PROG Normal [facility] CT BRAIN WO IVCONon 07-21-[address] BRAIN WO IVCON Normal [facility] Magnesium SerPl-mCncon 07-20 Magnesium [Mass/Vol] 2.4 mg/dL High 1.7-2.3 [facility] Comment on above: Order Comment: Speci men Type: BLOOD SPECIMENOrdering Facility: [facility] Address: [address] [place] [address] Performed By: #### 2 4321-2, , 2776- ####[facility]ORATORYCLIA [id number] [address] OF [facility] NUTRITIONon 07-20-2021 NUTRITION Normal [facility] Phosphate SerPl-mCncon 07-20 Phosphate [Mass/Vol] 4.1 mg/dL Normal 2.7-4.8 [facility] Comment on above: Order Comment: Speci men Type: BLOOD SPECIMENOrdering Facility: [facility] Address: [address] [place] [address] Performed By: #### 2 4321-2, 55801-5, 2777-1 ####[facility]ATORYCLIA [id number] [address] [place] aPTT PPPon 07-20-2021 aPTT Coag (PPP) [Time] 53.6 s High 23.0-32.4 [facility] Comment on above: Order Comment: Speci men Type: BLOOD SPECIMENOrdering Facility: [facility] Address: [address] [place] [address] Performed By: #### 1 4979-9 ####[facility]ORATORYCLIA [id number] [place] [address] [place] Bacteria CSF Culton 07-20-19 22 Bacteria identified Cx Nom (CSF) CULTURE, CSF: No growth 14 days GRAM STAIN: No organisms seen No Polymorphonuclear Leukocytes Rare Mononuclear cells Gram stain performed on cytospun specimen. Normal [facility] Comment on above: Performed By: #### 6 06-4 ####[facility]ORATORYCLIA [id number] [address] CONSULT PROGon 07-19-2021 CONSULT PROG Normal [facility] CSF MANUAL DIFFon 07-19-2021 DIF TTL, CSF 100 cells counted Normal [facility] Comment on above: Order Comment: Speci men Type: CEREBROSPINAL FLUIDOrdering Facility: [facility] Address: [address] [place] [address] Performed By: #### L [id number], 97957-3, [id number] ####[facility]ORATORYCLIA [id number] [place] [address] [place] EOSIN%, CSF 1 % Normal [facility] Comment on above: Order Comment: Speci men Type: CEREBROSPINAL FLUIDOrdering Facility: [facility] Address: [address] [place] [address] Performed By: #### L [id number], 80777-1, [id number] ####[facility]ORATORYCLIA [id number] [address] [place] LYMPH%, CSF 67 % Normal 50-90 [facility] Comment on above: Order Comment: Speci men Type: CEREBROSPINAL FLUIDOrdering Facility: [facility] Address: [address] [address] Performed By: #### L [id number], 01924-3, ALX7819 ####[facility]ORATORYCLIA [id number] [place] [address] [place] MACRO%, CSF 1 % High <1 [facility] Comment on above: Order Comment: Speci men Type: CEREBROSPINAL FLUIDOrdering Facility: [facility] Address: [address] [place] [address] Performed By: #### L [id number], 84227-8, RLS5362 ####[facility]ORATORYCLIA [id number] [place] [address] [place] MONO%, CSF 18 % Normal 10-50 [facility] Comment on above: Order Comment: Speci men Type: CEREBROSPINAL FLUIDOrdering Facility: [facility] Address: [address] [place] [address] Performed By: #### L [id number], 75344-8, [id number] ####[facility]ORATORYCLIA [id number] [address] [place] NEUT%, CSF 11 % High 0-3 [facility] Comment on above: Order Comment: Speci men Type: CEREBROSPINAL FLUIDOrdering Facility: [facility] Address: [address] [place] [address] Performed By: #### L [id number], 34154-8, [id number] ####[facility]ORATORYCLIA [id number] [address] OF [facility] OTHER CL%, CSF 2 % Normal [facility] Comment on above: Order Comment: Speci men Type: CEREBROSPINAL FLUIDOrdering Facility: [facility] Address: [address] [place] [address] Result Comment: Path review to follow. Performed By: #### L [id number], 35755-2, SCV9485 ####[facility]ORATORYCLIA [id number] [address] CSF PATHOLOGIST INTERP (LAB REFLEX ORDER-NO BILL)on 07-19-2021 CSF STAFF REVIEW Normal [facility] Comment on above: Order Comment: Speci men Type: CEREBROSPINAL FLUIDOrdering Facility: [facility] Address: [address] [place] [address] Performed By: #### L AS5079, 37878-1, EDT5882 ####[facility]ORATORYCLIA [id number] [address] Pathologist name Reviewed by Wing Cummings MD [facility] Comment on above: Order Comment: Speci men Type: CEREBROSPINAL FLUIDOrdering Facility: [facility] Address: [address] [place] [address] Performed By: #### L [id number], 48586-2, AMO0409 ####[facility]ATORYCLIA [id number] [address] Cell count panel (CSF)on Clarity (CSF) Clear Normal Clear [facility] Comment on above: Order Comment: Speci men Type: CEREBROSPINAL FLUIDOrdering Facility: [facility] Address: [address] [place] [address] Performed By: #### L [id number], 10609-2, CUD1476 ####[facility]ORATORYCLIA [id number] [address] Clarity (Unsp spec) Not Indicated Normal Clear [facility] Comment on above: Order Comment: Speci men Type: CEREBROSPINAL FLUIDOrdering Facility: [facility] Address: [address] [place], [place] [address] Performed By: #### L [id number], 38883-2, MFF7548 ####[facility]ATORYCLIA [id number] [address] Color (CSF) Colorless Normal Colorless [facility] Comment on above: Order Comment: Speci men Type: CEREBROSPINAL FLUIDOrdering Facility: [facility] Address: [address] [place] [address] Performed By: #### L [id number], 89924-5, IZV1096 ####[facility] LABORATORYCLIA [id number] [address] STATES OF [facility] Color (Spun CSF) Not Indicated Normal Colorless [facility] Comment on above: Order Comment: Speci men Type: CEREBROSPINAL FLUIDOrdering Facility: [facility] Address: [address] [place] [address] Performed By: #### L [id number], 97292-9, [id number] ####[facility]ORATORYCLIA [id number] [address] CSF [employer] Normal [facility] Comment on above: Order Comment: Speci men Type: CEREBROSPINAL FLUIDOrdering Facility: [facility] Address: [address] [place] [address] Performed By: #### L [id number], 60316-3, UBD2624 ####[facility]ORATORYCLIA [id number] [address] RBC Manual cnt (CSF) [#/Vol] 0 cells/uL Normal 0-5 [facility] Comment on above: Order Comment: Speci men Type: CEREBROSPINAL FLUIDOrdering Facility: [facility] Address: [address] [place] [address] Performed By: #### L [id number], 23666-9, [id number] ####[facility]ORATORYCLIA [id number] [address] WBC Manual cnt (CSF) [#/Vol] 2 cells/uL Normal 0-5 [facility] Comment on above: Order Comment: Speci men Type: CEREBROSPINAL FLUIDOrdering Facility: [facility] Address: [address] [place] [address] Performed By: #### L WV2586, 59463-6, [id number] ####[facility] LABORATORYCLIA [id number] [address] [place] Glucose CSF-mCncon 2 Glucose (CSF) [Mass/Vol] 69 mg/dL Normal 40-70 [facility] Comment on above: Order Comment: Speci men Type: CEREBROSPINAL FLUIDOrdering Facility: [facility] Address: [address] [place] [address] Result Comment: Lumb ar CSF glucose values of healthy patients are approximately 60% of the plasma values and must always be compared with a concurrently measured plasma value for adequate clinical interpretation.References: 1. Glucose HK (GLUC3) [package insert V 12.0 [place]]. [employer], [place], [place]. September 2015. 2. Michelle Moore, Loki HGarfield (2015). Chapter 7: Glucose and Lactate. F. Irina rose al.(eds.), Cerebrospinal Fluid in Clinical Neurology. Bleckley: goodideazs. Performed By: #### 2 342-4, 2880-3 ####[facility] LABORATORYCLIA [id number] [address] STATES OF [facility] NURSING PROGon 07-19-2021 NURSING PROG Normal [facility] NURSING PROG Normal [facility] Prot CSF-mCncon 07-19-2021 Protein (CSF) [Mass/Vol] 51 mg/dL High 15-45 [facility] Comment on above: Order Comment: Speci men Type: CEREBROSPINAL FLUIDOrdering Facility: [facility] Address: [address] [place] [address] Performed By: #### 2 342-4, 2880-3 ####[facility]ORATORYCLIA [id number] [address] [place] THERAPY NTon 07-19-2021 THERAPY NT Normal [facility] Urinalysis complete panel (U )on 07-19-2021 Bilirubin Ql (U) Negative Normal Negative [facility] Comment on above: Order Comment: Speci men Type: URINE SPECIMENOrdering Facility: [facility] Address: [address] [place] [address] Performed By: #### 2 4356-8 ####[facility]ORATORYCLIA [id number] [address] [place] Clarity (Unsp spec) Clear Normal Clear [facility] Comment on above: Order Comment: Speci men Type: URINE SPECIMENOrdering Facility: [facility] Address: [address] [place] [address] Performed By: #### 2 4356-8 ####[facility]ORATORYCLIA [id number] [address] Color (U) Colorless Normal yellow [facility] Comment on above: Order Comment: Speci men Type: URINE SPECIMENOrdering Facility: [facility] Address: [address] [place] [address] Performed By: #### 2 4356-8 ####[facility]ATORYCLIA [id number] [address] Glucose Test strip (U) [Mass/Vol] Negative Normal Negative [facility] Comment on above: Order Comment: Speci men Type: URINE SPECIMENOrdering Facility: [facility] Address: [address] [place] [address] Performed By: #### 2 4356-8 ####[facility]ORATORYCLIA [id number] [address] STATES [facility] Hemoglobin Ql (U) Trace Abnormal Negative [facility] Comment on above: Order Comment: Speci men Type: URINE SPECIMENOrdering Facility: [facility] Address: [address] [place] [address] Performed By: #### 2 4356-8 ####[facility]ORATORYCLIA [id number] [address] [place] Hyaline casts (Urine sed) [#/Area] 1-3 /LPF Abnormal 0 /LPF [facility] Comment on above: Order Comment: Speci men Type: URINE SPECIMENOrdering Facility: [facility] Address: [address] [place] [address] Performed By: #### 2 4356-8 ####[facility]ORATORYCLIA [id number] [address] Ketones Ql (U) Negative Normal Negative [facility] Comment on above: Order Comment: Speci men Type: URINE SPECIMENOrdering Facility: [facility] Address: [address] [place] [address] Performed By: #### 2 4356-8 ####[facility]ORATORYCLIA [id number] [address] Leukocyte esterase Test strip Ql (U) Negative Normal Negative [facility] Comment on above: Order Comment: Speci men Type: URINE SPECIMENOrdering Facility: [facility] Address: [address] [place] [address] Performed By: #### 2 4356-8 ####[facility]ORATORYCLIA [id number] [address] Nitrite Ql (U) Negative Normal Negative [facility] Comment on above: Order Comment: Speci men Type: URINE SPECIMENOrdering Facility: [facility] Address: [address] [place] [address] Performed By: #### 2 4356-8 ####[facility]ORATORYCLIA [id number] [address] pH (U) 7.0 [pH] Normal 5.0-8.0 [facility] Comment on above: Order Comment: Speci men Type: URINE SPECIMENOrdering Facility: [facility] Address: [address] [place] [address] Performed By: #### 2 4356-8 ####[facility]ORATORYCLIA [id number] [address] Protein (U) [Mass/Vol] Negative Normal Negative [facility] Comment on above: Order Comment: Speci men Type: URINE SPECIMENOrdering Facility: [facility] Address: [address] [place] [address] Performed By: #### 2 4356-8 ####[facility]ORATORYCLIA [id number] [address] [place] RBC LM.HPF (Urine sed) [#/Area] 6-10 /HPF Abnormal 0-3 /HPF [facility] Comment on above: Order Comment: Speci men Type: URINE SPECIMENOrdering Facility: [facility] Address: [address] [address] Performed By: #### 2 4356-8 ####[facility]ORATORYCLIA [id number] [address] [place] [facility] Specific gravity (U) [Rel density] 1.008 Normal 1.005-1.030 [facility] Comment on above: Order Comment: Speci men Type: URINE SPECIMENOrdering Facility: [facility] Address: [address] [address] Performed By: #### 2 4356-8 ####[facility]ORATORYCLIA [id number] [address] Urobilinogen Ql (U) Normal Normal Negative [facility] Comment on above: Order Comment: Speci men Type: URINE SPECIMENOrdering Facility: [facility] Address: [address] [place] [address] Performed By: #### 2 4356-8 ####[facility]ORATORYCLIA [id number] [address] [place] WBC LM.HPF (Urine sed) [#/Area] 0-5 /HPF Normal 0-5 /HPF [facility] Comment on above: Order Comment: Speci men Type: URINE SPECIMENOrdering Facility: [facility] Address: [address] [place] [address] Performed By: #### 2 4356-8 ####[facility] LABORATORYCLIA [id number] [address] [place] Vancomycin random [Mass/Vol] on 07-19-2021 Vancomycin [Mass/Vol] 13.9 ug/mL Normal 10.0-20.0 [facility] Comment on above: Order Comment: Speci men Type: BLOOD SPECIMENOrdering Facility: [facility] Address: [address] [place] [address] Result Comment: Refe rence ranges and high/low indicator flags are provided as general guidelines only. The treating physician must determine appropriate target levels/dosing based on the specific clinical situation. Performed By: #### 4 091-5 ####[facility]ORATORYCLIA [id number] [address] OF [facility] aPTT PPPon 07-19-2021 aPTT Coag (PPP) [Time] 53.9 s High 23.0-32.4 [facility] Comment on above: Order Comment: Speci men Type: BLOOD SPECIMENOrdering Facility: [facility] Address: [address] [place] [address] Performed By: #### 1 4979-9 ####[facility]ORATORYCLIA [id number] [address] OF [facility] Basic metabolic 2000 panelon 07-18-2021 Anion gap [Moles/Vol] 6 mmol/L Low 9-18 [facility] Comment on above: Order Comment: Speci men Type: BLOOD SPECIMENOrdering Facility: [facility] Address: [address] [place] [address] Performed By: #### 2 4321-2, , 2776- ####[facility]CLIA [id number] [place] [address] [place] Calcium [Mass/Vol] 9.4 mg/dL Normal 8.5-10.2 [facility] Comment on above: Order Comment: Speci men Type: BLOOD SPECIMENOrdering Facility: [facility] Address: [address] [place] [address] Performed By: #### 2 4321-2, , 2776- ####[facility]ORATORYCLIA [id number] [address] STATES OF [facility] Chloride [Moles/Vol] 103 mmol/L Normal 97-105 [facility] Comment on above: Order Comment: Speci men Type: BLOOD SPECIMENOrdering Facility: [facility] Address: [address] [place] [address] Performed By: #### 2 4321-2, , 2776 ####[facility]REM[facility]CLIA [id number] [place] [id number] [place] CO2 [Moles/Vol] 34 mmol/L High 22-30 [facility] Comment on above: Order Comment: Speci men Type: BLOOD SPECIMENOrdering Facility: [facility] Address: [address] [place] [address] Performed By: #### 2 4321-2, , 2776-05 ####[facility]REM[facility]CLIA [id number] [place] [id number] [place] [facility] Creatinine [Mass/Vol] 0.75 mg/dL Normal 0.73-1.22 [facility] Comment on above: Order Comment: Speci men Type: BLOOD SPECIMENOrdering Facility: [facility] Address: [address] [place] [address] Performed By: #### 2 4321-2, , 2776-05 ####[facility] [id number] [address] ESTIMATED GLOMERULAR FILTRATION RATE 98 mL/min/1.73m??? Normal >=60 [facility] Comment on above: Order Comment: Speci men Type: BLOOD SPECIMENOrdering Facility: [facility] Address: [address] [place] [address] Result Comment: Luzmaria mated Glomerular Filtration Rate [...] Performed By: #### 2 4321-2, , 2776-05 ####[facility]ORATORYCLIA [id number] [place] [address] [place] Glucose [Mass/Vol] 125 mg/dL High 74-99 [facility] Comment on above: Order Comment: Speci men Type: BLOOD SPECIMENOrdering Facility: [facility] Address: [address] [phone] Result Comment: The [place] Diabetes [employer] (ADA) provides guidance for cutoff [...] Standards of Medical Care in Diabetes 2016, [place] [employer]. Diabetes Care. 2016.39(Suppl 1). Performed By: #### 2 4321-2, , 2776-05 ####[facility]ATORYCLIA [id number] [place] [address] [place] Potassium [Moles/Vol] 4.4 mmol/L Normal 3.7-5.1 [facility] Comment on above: Order Comment: Speci men Type: BLOOD SPECIMENOrdering Facility: [facility] Address: [address] [place], [place] [address] Performed By: #### 2 4321-2, , 2776-05 ####[facility]ATORYCLIA [id number] [place] [address] [place] Sodium [Moles/Vol] 143 mmol/L Normal 136-144 [facility] Comment on above: Order Comment: Speci men Type: BLOOD SPECIMENOrdering Facility: [facility] Address: [address] Performed By: #### 2 432-2, , 2776-05 ####[facility]ATORYCLIA [id number] [place] [address] [place] Urea nitrogen [Mass/Vol] 33 mg/dL High 9-24 [facility] Comment on above: Order Comment: Speci men Type: BLOOD SPECIMENOrdering Facility: [facility] Address: [address] [address] Performed By: #### 2 4321-2, 31304-8, 2777-1 ####[facility]ORYCLIA [id number] [address] CASE MANAGEMon 07-18-2021 CASE MANAGEM Normal [facility] CBC W Auto Differential pane l (Bld)on 07-18-2021 Basophils (Bld) [#/Vol] 0.05 10*3/uL Normal <0.11 [facility] Comment on above: Order Comment: Speci men Type: BLOOD SPECIMENOrdering Facility: [facility] Address: [address] [place] [address] Performed By: #### 5 7021-8 ####[facility]ORYCLIA [id number] [address] [place] [facility] Basophils/100 WBC (Bld) 0.5 % Normal [facility] Comment on above: Order Comment: Speci men Type: BLOOD SPECIMENOrdering Facility: [facility] Address: [address] [place] [address] Performed By: #### 5 7021-8 ####[facility]ORYCLIA [id number] [address] [place] Differential cell count method Nom (Bld) Auto Normal [facility] Comment on above: Order Comment: Speci men Type: BLOOD SPECIMENOrdering Facility: [facility] Address: [address] [place] [address] Performed By: #### 5 7021-8 ####[facility]ATORYCLIA [id number] [place] [address] [place] Eosinophils (Bld) [#/Vol] 0.44 10*3/uL Normal <0.46 [facility] Comment on above: Order Comment: Speci men Type: BLOOD SPECIMENOrdering Facility: [facility] Address: [address] [address] Performed By: #### 5 7021-8 ####[facility]ATORYCLIA [id number] [address] Eosinophils/100 WBC (Bld) 4.3 % Normal [facility] Comment on above: Order Comment: Speci men Type: BLOOD SPECIMENOrdering Facility: [facility] Address: [address] [place] [address] Performed By: #### 5 7021-8 ####[facility]ATORYCLIA [id number] [address] Erythrocyte distribution width (RBC) [Ratio] 16.6 % High 11.5-15.0 [facility] Comment on above: Order Comment: Speci men Type: BLOOD SPECIMENOrdering Facility: [facility] Address: [address] [place] [address] Performed By: #### 5 7021-8 ####[facility]ORATORYCLIA [id number] [address] Hematocrit (Bld) [Volume fraction] 32.2 % Low 39.0-51.0 [facility] Comment on above: Order Comment: Speci men Type: BLOOD SPECIMENOrdering Facility: [facility] Address: [address] [place] [address] Performed By: #### 5 7021-8 ####[facility]ATORYCLIA [id number] [address] [place] Hemoglobin (Bld) [Mass/Vol] 9.5 g/dL Low 13.0-17.0 [facility] Comment on above: Order Comment: Speci men Type: BLOOD SPECIMENOrdering Facility: [facility] Address: [address] [place] [address] Performed By: #### 5 7021-8 ####[facility]ATORYCLIA [id number] [address] IMMATURE GRAN % 0.4 % Normal [facility] Comment on above: Order Comment: Speci men Type: BLOOD SPECIMENOrdering Facility: [facility] Address: [address] [place] [address] Performed By: #### 5 7021-8 ####[facility]ORATORYCLIA [id number] [address] [place] [facility] IMMATURE GRAN ABS 0.04 k/uL Normal <0.10 [facility] Comment on above: Order Comment: Speci men Type: BLOOD SPECIMENOrdering Facility: [facility] Address: [address] [place] [address] Performed By: #### 5 7021-8 ####[facility]ATORYCLIA [id number] [address] Lymphocytes (Bld) [#/Vol] 1.71 10*3/uL Normal 1.00-4.00 [facility] Comment on above: Order Comment: Speci men Type: BLOOD SPECIMENOrdering Facility: [facility] Address: [address] [place] [address] Performed By: #### 5 7021-8 ####[facility]ATORYCLIA [id number] [address] Lymphocytes/100 WBC (Bld) 16.9 % Normal [facility] Comment on above: Order Comment: Speci men Type: BLOOD SPECIMENOrdering Facility: [facility] Address: [address] [place] [address] Performed By: #### 5 7021-8 ####[facility]ATORYCLIA [id number] [address] MCH (RBC) [Entitic mass] 27.9 pg Normal 26.0-34.0 [facility] Comment on above: Order Comment: Speci men Type: BLOOD SPECIMENOrdering Facility: [facility] Address: [address] [place] [address] Performed By: #### 5 7021-8 ####[facility]ATORYCLIA [id number] [address] [place] MCHC (RBC) [Mass/Vol] 29.5 g/dL Low 30.5-36.0 [facility] Comment on above: Order Comment: Speci men Type: BLOOD SPECIMENOrdering Facility: [facility] Address: [address] [place] [address] Performed By: #### 5 7021-8 ####[facility]ATORYCLIA [id number] [address] [place] MCV (RBC) [Entitic vol] 94.7 fL Normal 80.0-100.0 [facility] Comment on above: Order Comment: Speci men Type: BLOOD SPECIMENOrdering Facility: [facility] Address: [address] [place] [address] Performed By: #### 5 7021-8 ####[facility]ATORYCLIA [id number] [place] [address] [place] Monocytes (Bld) [#/Vol] 0.69 10*3/uL Normal <0.87 [facility] Comment on above: Order Comment: Speci men Type: BLOOD SPECIMENOrdering Facility: [facility] Address: [address] [place] [address] Performed By: #### 5 7021-8 ####[facility]ATORYCLIA [id number] [address] [place] Monocytes/100 WBC (Bld) 6.8 % Normal [facility] Comment on above: Order Comment: Speci men Type: BLOOD SPECIMENOrdering Facility: [facility] Address: [address] [place] [address] Performed By: #### 5 7021-8 ####[facility]ATORYCLIA [id number] [address] [place] Neutrophils (Bld) [#/Vol] 7.19 10*3/uL Normal 1.45-7.50 [facility] Comment on above: Order Comment: Speci men Type: BLOOD SPECIMENOrdering Facility: [facility] Address: [address] [place] [address] Performed By: #### 5 7021-8 ####[facility]ATORYCLIA [id number] [address] Neutrophils/100 WBC (Bld) 71.1 % Normal [facility] Comment on above: Order Comment: Speci men Type: BLOOD SPECIMENOrdering Facility: [facility] Address: [address] [address] Performed By: #### 5 7021-8 ####[facility]ORATORYCLIA [id number] [address] [place] Nucleated RBC (Bld) [#/Vol] 10*3/uL Normal <0.01 [facility] Comment on above: Order Comment: Speci men Type: BLOOD SPECIMENOrdering Facility: [facility] Address: [address] [place] [address] Performed By: #### 5 7021-8 ####[facility]ORATORYCLIA [id number] [address] [place] Nucleated RBC/100 WBC (Bld) [Ratio] 0.0 /100 WBC Normal [facility] Comment on above: Order Comment: Speci men Type: BLOOD SPECIMENOrdering Facility: [facility] Address: [address] [place] [address] Performed By: #### 5 7021-8 ####[facility]ORATORYCLIA [id number] [address] [place] Platelet mean volume (Bld) [Entitic vol] 10.3 fL Normal 9.0-12.7 [facility] Comment on above: Order Comment: Speci men Type: BLOOD SPECIMENOrdering Facility: [facility] Address: [address] Performed By: #### 5 7021-8 ####[facility]ATORYCLIA [id number] [address] [place] Platelets (Bld) [#/Vol] 403 10*3/uL High 150-400 [facility] Comment on above: Order Comment: Speci men Type: BLOOD SPECIMENOrdering Facility: [facility] Address: [address] [place] [address] Performed By: #### 5 7021-8 ####[facility]ORATORYCLIA [id number] [address] STATES OF [facility] RBC (Bld) [#/Vol] 3.40 10*6/uL Low 4.20-6.00 [facility] Comment on above: Order Comment: Speci men Type: BLOOD SPECIMENOrdering Facility: [facility] Address: [address] [place] [address] Performed By: #### 5 7021-8 ####[facility]ATORYCLIA [id number] [address] OF [facility] WBC (Bld) [#/Vol] 10.12 10*3/uL Normal 3.70-11.00 [facility] Comment on above: Order Comment: Speci men Type: BLOOD SPECIMENOrdering Facility: [facility] Address: [address] [place] [address] Performed By: #### 5 7021-8 ####[facility]ORATORYCLIA [id number] [address] [place] Magnesium SerPl-mCncon 07-18 Magnesium [Mass/Vol] 2.4 mg/dL High 1.7-2.3 [facility] Comment on above: Order Comment: Speci men Type: BLOOD SPECIMENOrdering Facility: [facility] Address: [address] [place] [address] Performed By: #### 2 4321-2, 39359-9, 2777-1 ####[facility]ATORYCLIA [id number] [address] [place] NURSING PROGon 07-18-2021 NURSING PROG Normal [facility] NURSING PROG Normal [facility] Phosphate SerPl-mCncon 07-18 Phosphate [Mass/Vol] 3.9 mg/dL Normal 2.7-4.8 [facility] Comment on above: Order Comment: Speci men Type: BLOOD SPECIMENOrdering Facility: [facility] Address: [address] [place], [place] [address] Performed By: #### 2 4321-2, 92215-7, 2777-1 ####[facility]ATORYCLIA [id number] [address] OF [facility] THERAPY NTon 07-18-2021 THERAPY NT Normal [facility] aPTT PPPon 07-18-2021 aPTT Coag (PPP) [Time] 52.3 s High 23.0-32.4 [facility] Comment on above: Order Comment: Speci men Type: BLOOD SPECIMENOrdering Facility: [facility] Address: [address] [place] [address] Performed By: #### 1 4979-9 ####[facility]ATORYCLIA [id number] [address] CBC W Auto Differential pane l (Bld)on 07-17-2021 Basophils (Bld) [#/Vol] 0.05 10*3/uL Normal <0.11 [facility] Comment on above: Order Comment: Speci men Type: BLOOD SPECIMENOrdering Facility: [facility] Address: [address] [place] [address] Performed By: #### 5 7021-8 ####[facility]ATORYCLIA [id number] [address] Basophils/100 WBC (Bld) 0.5 % Normal [facility] Comment on above: Order Comment: Speci men Type: BLOOD SPECIMENOrdering Facility: [facility] Address: [address] [place] [address] Performed By: #### 5 7021-8 ####[facility]ATORYCLIA [id number] [address] Differential cell count method Nom (Bld) Auto Normal [facility] Comment on above: Order Comment: Speci men Type: BLOOD SPECIMENOrdering Facility: [facility] Address: [address] [place] [address] Performed By: #### 5 7021-8 ####[facility]ATORYCLIA [id number] [address] [place] Eosinophils (Bld) [#/Vol] 0.32 10*3/uL Normal <0.46 [facility] Comment on above: Order Comment: Speci men Type: BLOOD SPECIMENOrdering Facility: [facility] Address: [address] [place] [address] Performed By: #### 5 7021-8 ####[facility]ATORYCLIA [id number] [address] Eosinophils/100 WBC (Bld) 3.4 % Normal [facility] Comment on above: Order Comment: Speci men Type: BLOOD SPECIMENOrdering Facility: [facility] Address: [address] [place] [address] Performed By: #### 5 7021-8 ####[facility]ATORYCLIA [id number] [address] Erythrocyte distribution width (RBC) [Ratio] 16.6 % High 11.5-15.0 [facility] Comment on above: Order Comment: Speci men Type: BLOOD SPECIMENOrdering Facility: [facility] Address: [address] [place] [address] Performed By: #### 5 7021-8 ####[facility]ORATORYCLIA [id number] [address] [place] Hematocrit (Bld) [Volume fraction] 30.7 % Low 39.0-51.0 [facility] Comment on above: Order Comment: Speci men Type: BLOOD SPECIMENOrdering Facility: [facility] Address: [address] [place] [address] Performed By: #### 5 7021-8 ####[facility]ORATORYCLIA [id number] [address] Hemoglobin (Bld) [Mass/Vol] 9.0 g/dL Low 13.0-17.0 [facility] Comment on above: Order Comment: Speci men Type: BLOOD SPECIMENOrdering Facility: [facility] Address: [address] [place] [address] Performed By: #### 5 7021-8 ####[facility]ORYCLIA [id number] [address] IMMATURE GRAN % 0.6 % Normal [facility] Comment on above: Order Comment: Speci men Type: BLOOD SPECIMENOrdering Facility: [facility] Address: [address] [place] [address] Performed By: #### 5 7021-8 ####[facility]ATORYCLIA [id number] [address] IMMATURE GRAN ABS 0.06 k/uL Normal <0.10 [facility] Comment on above: Order Comment: Speci men Type: BLOOD SPECIMENOrdering Facility: [facility] Address: [address] [place] [address] Performed By: #### 5 7021-8 ####[facility]ATORYCLIA [id number] [address] Lymphocytes (Bld) [#/Vol] 1.61 10*3/uL Normal 1.00-4.00 [facility] Comment on above: Order Comment: Speci men Type: BLOOD SPECIMENOrdering Facility: [facility] Address: [address] [place] [address] Performed By: #### 5 7021-8 ####[facility]ATORYCLIA [id number] [address] Lymphocytes/100 WBC (Bld) 17.3 % Normal [facility] Comment on above: Order Comment: Speci men Type: BLOOD SPECIMENOrdering Facility: [facility] Address: [address] [place] [address] Performed By: #### 5 7021-8 ####[facility]ORYCLIA [id number] [address] [place] MCH (RBC) [Entitic mass] 26.9 pg Normal 26.0-34.0 [facility] Comment on above: Order Comment: Speci men Type: BLOOD SPECIMENOrdering Facility: [facility] Address: [address] [place] [address] Performed By: #### 5 7021-8 ####[facility]ATORYCLIA [id number] [address] MCHC (RBC) [Mass/Vol] 29.3 g/dL Low 30.5-36.0 [facility] Comment on above: Order Comment: Speci men Type: BLOOD SPECIMENOrdering Facility: [facility] Address: [address] [place] [address] Performed By: #### 5 7021-8 ####[facility]ATORYCLIA [id number] [address] MCV (RBC) [Entitic vol] 91.9 fL Normal 80.0-100.0 [facility] Comment on above: Order Comment: Speci men Type: BLOOD SPECIMENOrdering Facility: [facility] Address: [address] [place] [address] Performed By: #### 5 7021-8 ####[facility]ATORYCLIA [id number] [address] Monocytes (Bld) [#/Vol] 0.61 10*3/uL Normal <0.87 [facility] Comment on above: Order Comment: Speci men Type: BLOOD SPECIMENOrdering Facility: [facility] Address: [address] [place] [address] Performed By: #### 5 7021-8 ####[facility]ATORYCLIA [id number] [address] Monocytes/100 WBC (Bld) 6.6 % Normal [facility] Comment on above: Order Comment: Speci men Type: BLOOD SPECIMENOrdering Facility: [facility] Address: [address] [place] [address] Performed By: #### 5 7021-8 ####[facility]ORATORYCLIA [id number] [place] [address] [place] Neutrophils (Bld) [#/Vol] 6.64 10*3/uL Normal 1.45-7.50 [facility] Comment on above: Order Comment: Speci men Type: BLOOD SPECIMENOrdering Facility: [facility] Address: [address] [place] [address] Performed By: #### 5 7021-8 ####[facility]ATORYCLIA [id number] [address] [place] Neutrophils/100 WBC (Bld) 71.6 % Normal [facility] Comment on above: Order Comment: Speci men Type: BLOOD SPECIMENOrdering Facility: [facility] Address: [address] [place] [address] Performed By: #### 5 7021-8 ####[facility]ATORYCLIA [id number] [address] [place] Nucleated RBC (Bld) [#/Vol] 10*3/uL Normal <0.01 [facility] Comment on above: Order Comment: Speci men Type: BLOOD SPECIMENOrdering Facility: [facility] Address: [address] [place] [address] Performed By: #### 5 7021-8 ####[facility]ORATORYCLIA [id number] [address] [place] Nucleated RBC/100 WBC (Bld) [Ratio] 0.0 /100 WBC Normal [facility] Comment on above: Order Comment: Speci men Type: BLOOD SPECIMENOrdering Facility: [facility] Address: [address] [place] [address] Performed By: #### 5 7021-8 ####[facility]ORATORYCLIA [id number] [address] [place] Platelet mean volume (Bld) [Entitic vol] 10.1 fL Normal 9.0-12.7 [facility] Comment on above: Order Comment: Speci men Type: BLOOD SPECIMENOrdering Facility: [facility] Address: [address] [place] [address] Performed By: #### 5 7021-8 ####[facility]ORATORYCLIA [id number] [address] Platelets (Bld) [#/Vol] 387 10*3/uL Normal 150-400 [facility] Comment on above: Order Comment: Speci men Type: BLOOD SPECIMENOrdering Facility: [facility] Address: [address] [place] [address] Performed By: #### 5 7021-8 ####[facility]ORATORYCLIA [id number] [address] OF [facility] RBC (Bld) [#/Vol] 3.34 10*6/uL Low 4.20-6.00 [facility] Comment on above: Order Comment: Speci men Type: BLOOD SPECIMENOrdering Facility: [facility] Address: [address] [place] [address] Performed By: #### 5 7021-8 ####[facility]ORATORYCLIA [id number] [address] WBC (Bld) [#/Vol] 9.29 10*3/uL Normal 3.70-11.00 [facility] Comment on above: Order Comment: Speci men Type: BLOOD SPECIMENOrdering Facility: [facility] Address: [address] [place] [address] Performed By: #### 5 7021-8 ####[facility]ORATORYCLIA [id number] [address] CONSULT PROGon 07-17-2021 CONSULT PROG Normal [facility] Magnesium SerPl-mCncon 07-17 Magnesium [Mass/Vol] 2.3 mg/dL Normal 1.7-2.3 [facility] Comment on above: Order Comment: Speci men Type: BLOOD SPECIMENOrdering Facility: [facility] Address: [address] [place] [address] Performed By: #### 2 777-1, 73658-7 ####[facility]ORATORYCLIA [id number] [address] [place] NURSING PROGon 07-17-2021 NURSING PROG Normal [facility] NURSING PROG Normal [facility] NURSING PROG Normal [facility] Phosphate SerPl-mCncon 07-17 Phosphate [Mass/Vol] 3.6 mg/dL Normal 2.7-4.8 [facility] Comment on above: Order Comment: Speci men Type: BLOOD SPECIMENOrdering Facility: [facility] Address: [address] [place] [address] Performed By: #### 2 777-1, 07122-8 ####[facility]ORATORYCLIA [id number] [address] [place] aPTT PPPon 07-17-2021 aPTT Coag (PPP) [Time] 57.2 s High 23.0-32.4 [facility] Comment on above: Order Comment: Speci men Type: BLOOD SPECIMENOrdering Facility: [facility] Address: [address] [place] [address] Performed By: #### 1 4979-9 ####[facility]ORATORYCLIA [id number] [place] [address] [place] Basic metabolic 2000 panelon 07-16-2021 Anion gap [Moles/Vol] 5 mmol/L Low 9-18 [facility] Comment on above: Order Comment: Speci men Type: BLOOD SPECIMENOrdering Facility: [facility] Address: [address] [place] [address] Performed By: #### 2 777-1, 45968-3, 70493-4 ####[facility] LABORATORYCLIA [id number] [place] [address] [place] Calcium [Mass/Vol] 9.1 mg/dL Normal 8.5-10.2 [facility] Comment on above: Order Comment: Speci men Type: BLOOD SPECIMENOrdering Facility: [facility] Address: [address] [place] [address] Performed By: #### 2 777-1, 53622-4, ####[facility] LABORATORYCLIA [id number] [place] [address] [place] Chloride [Moles/Vol] 101 mmol/L Normal 97-105 [facility] Comment on above: Order Comment: Speci men Type: BLOOD SPECIMENOrdering Facility: [facility] Address: [address] [place] [address] Performed By: #### 2 777-1, 35498-2, ####[facility] LABORATORYCLIA [id number] [place] [id number] [place] CO2 [Moles/Vol] 35 mmol/L High 22-30 [facility] Comment on above: Order Comment: Speci men Type: BLOOD SPECIMENOrdering Facility: [facility] Address: [address] [place] [address] Performed By: #### 2 777-1, , ####[facility] LABORATORYCLIA [id number] [address] STATES OF [facility] Creatinine [Mass/Vol] 0.73 mg/dL Normal 0.73-1.22 [facility] Comment on above: Order Comment: Speci men Type: BLOOD SPECIMENOrdering Facility: [facility] Address: [address] [place] [address] Performed By: #### 2 777-1, , ####[facility] LABORATORYCLIA [id number] [address] ESTIMATED GLOMERULAR FILTRATION RATE 98 mL/min/1.73m??? Normal >=60 [facility] Comment on above: Order Comment: Speci men Type: BLOOD SPECIMENOrdering Facility: [facility] Address: [address] [place] [address] Result Comment: Luzmaria mated Glomerular Filtration Rate [...] actual GFR. Performed By: #### 2 777-1, 95560-2, ####[facility] LABORATORYCLIA [id number] [place] [address] [place] Glucose [Mass/Vol] 133 mg/dL High 74-99 [facility] Comment on above: Order Comment: Speci men Type: BLOOD SPECIMENOrdering Facility: [facility] Address: [address] [place] [address] Result Comment: The [place] Diabetes [employer] (ADA) provides guidance for cutoff [...] Standards of Medical Care in Diabetes 2016, [place] [employer]. Diabetes Care. 2016.39(Suppl 1). Performed By: #### 2 777-1, 96255-4, ####[facility] LABORATORYCLIA [id number] [place] [address] [place] Potassium [Moles/Vol] 4.2 mmol/L Normal 3.7-5.1 [facility] Comment on above: Order Comment: Shira men Type: BLOOD SPECIMENOrdering Facility: [facility] Address: [address] [place] [address] Performed By: #### 2 777-1, 78638-7, ####[facility] LABORATORYCLIA [id number] [place] [address] [place] Sodium [Moles/Vol] 141 mmol/L Normal 136-144 [facility] Comment on above: Order Comment: Speci men Type: BLOOD SPECIMENOrdering Facility: [facility] Address: [address] [place] [address] Performed By: #### 2 777-1, 18710-7, ####[facility] LABORATORYCLIA [id number] [address] STATES [facility] Urea nitrogen [Mass/Vol] 21 mg/dL Normal 9-24 [facility] Comment on above: Order Comment: Speci men Type: BLOOD SPECIMENOrdering Facility: [facility] Address: [address] [place] [address] Performed By: #### 2 777-1, , ####[facility] LABORATORYCLIA [id number] [address] [place] CBC W Auto Differential pane l (Bld)on 07-16-2021 Basophils (Bld) [#/Vol] 0.06 10*3/uL Normal <0.11 [facility] Comment on above: Order Comment: Speci men Type: BLOOD SPECIMENOrdering Facility: [facility] Address: [address] [place] [address] Performed By: #### 5 7021-8 ####[facility] LABORATORYCLIA [id number] [address] [place] Basophils/100 WBC (Bld) 0.7 % Normal [facility] Comment on above: Order Comment: Speci men Type: BLOOD SPECIMENOrdering Facility: [facility] Address: [address] [place] [address] Performed By: #### 5 7021-8 ####[facility] LABORATORYCLIA [id number] [address] Differential cell count method Nom (Bld) Auto Normal [facility] Comment on above: Order Comment: Speci men Type: BLOOD SPECIMENOrdering Facility: [facility] Address: [address] [place] [address] Performed By: #### 5 7021-8 ####[facility]ORATORYCLIA [id number] [address] [place] Eosinophils (Bld) [#/Vol] 0.35 10*3/uL Normal <0.46 [facility] Comment on above: Order Comment: Speci men Type: BLOOD SPECIMENOrdering Facility: [facility] Address: [address] [place] [address] Performed By: #### 5 7021-8 ####[facility]ORATORYCLIA [id number] [address] Eosinophils/100 WBC (Bld) 3.9 % Normal [facility] Comment on above: Order Comment: Speci men Type: BLOOD SPECIMENOrdering Facility: [facility] Address: [address] [place] [address] Performed By: #### 5 7021-8 ####[facility] LABORATORYCLIA [id number] [address] Erythrocyte distribution width (RBC) [Ratio] 16.5 % High 11.5-15.0 [facility] Comment on above: Order Comment: Speci men Type: BLOOD SPECIMENOrdering Facility: [facility] Address: [address] [place] [address] Performed By: #### 5 7021-8 ####[facility] LABORATORYCLIA [id number] [address] [place] Hematocrit (Bld) [Volume fraction] 30.9 % Low 39.0-51.0 [facility] Comment on above: Order Comment: Speci men Type: BLOOD SPECIMENOrdering Facility: [facility] Address: [address] [place] [address] Performed By: #### 5 7021-8 ####[facility] LABORATORYCLIA [id number] [address] Hemoglobin (Bld) [Mass/Vol] 9.1 g/dL Low 13.0-17.0 [facility] Comment on above: Order Comment: Speci men Type: BLOOD SPECIMENOrdering Facility: [facility] Address: [address] [place] [address] Performed By: #### 5 7021-8 ####[facility] LABORATORYCLIA [id number] [address] IMMATURE GRAN % 0.4 % Normal [facility] Comment on above: Order Comment: Speci men Type: BLOOD SPECIMENOrdering Facility: [facility] Address: [address] [place] [address] Performed By: #### 5 7021-8 ####[facility] LABORATORYCLIA [id number] [address] IMMATURE GRAN ABS 0.04 k/uL Normal <0.10 [facility] Comment on above: Order Comment: Speci men Type: BLOOD SPECIMENOrdering Facility: [facility] Address: [address] [place] [address] Performed By: #### 5 7021-8 ####[facility] LABORATORYCLIA [id number] [address] Lymphocytes (Bld) [#/Vol] 1.35 10*3/uL Normal 1.00-4.00 [facility] Comment on above: Order Comment: Speci men Type: BLOOD SPECIMENOrdering Facility: [facility] Address: [address] [place] [address] Performed By: #### 5 7021-8 ####[facility] LABORATORYCLIA [id number] [address] Lymphocytes/100 WBC (Bld) 15.0 % Normal [facility] Comment on above: Order Comment: Speci men Type: BLOOD SPECIMENOrdering Facility: [facility] Address: [address] [place] [address] Performed By: #### 5 7021-8 ####[facility] LABORATORYCLIA [id number] [address] [place] MCH (RBC) [Entitic mass] 27.1 pg Normal 26.0-34.0 [facility] Comment on above: Order Comment: Speci men Type: BLOOD SPECIMENOrdering Facility: [facility] Address: [address] [place] [address] Performed By: #### 5 7021-8 ####[facility] LABORATORYCLIA [id number] [address] MCHC (RBC) [Mass/Vol] 29.4 g/dL Low 30.5-36.0 [facility] Comment on above: Order Comment: Speci men Type: BLOOD SPECIMENOrdering Facility: [facility] Address: [address] [place] [address] Performed By: #### 5 7021-8 ####[facility] LABORATORYCLIA [id number] [address] MCV (RBC) [Entitic vol] 92.0 fL Normal 80.0-100.0 [facility] Comment on above: Order Comment: Speci men Type: BLOOD SPECIMENOrdering Facility: [facility] Address: [address] [place] [address] Performed By: #### 5 7021-8 ####[facility] LABORATORYCLIA [id number] [address] Monocytes (Bld) [#/Vol] 0.53 10*3/uL Normal <0.87 [facility] Comment on above: Order Comment: Speci men Type: BLOOD SPECIMENOrdering Facility: [facility] Address: [address] [place] [address] Performed By: #### 5 7021-8 ####[facility] LABORATORYCLIA [id number] [address] Monocytes/100 WBC (Bld) 5.9 % Normal [facility] Comment on above: Order Comment: Speci men Type: BLOOD SPECIMENOrdering Facility: [facility] Address: [address] [place] [address] Performed By: #### 5 7021-8 ####[facility] LABORATORYCLIA [id number] [place] [address] [place] Neutrophils (Bld) [#/Vol] 6.67 10*3/uL Normal 1.45-7.50 [facility] Comment on above: Order Comment: Speci men Type: BLOOD SPECIMENOrdering Facility: [facility] Address: [address] [place] [address] Performed By: #### 5 7021-8 ####[facility] LABORATORYCLIA [id number] [place] [address] [place] Neutrophils/100 WBC (Bld) 74.1 % Normal [facility] Comment on above: Order Comment: Speci men Type: BLOOD SPECIMENOrdering Facility: [facility] Address: [address] [place] [address] Performed By: #### 5 7021-8 ####[facility] LABORATORYCLIA [id number] [address] [place] Nucleated RBC (Bld) [#/Vol] 10*3/uL Normal <0.01 [facility] Comment on above: Order Comment: Speci men Type: BLOOD SPECIMENOrdering Facility: [facility] Address: [address] [place] [address] Performed By: #### 5 7021-8 ####[facility] LABORATORYCLIA [id number] [address] [place] Nucleated RBC/100 WBC (Bld) [Ratio] 0.0 /100 WBC Normal [facility] Comment on above: Order Comment: Speci men Type: BLOOD SPECIMENOrdering Facility: [facility] Address: [address] [place] [address] Performed By: #### 5 7021-8 ####[facility] LABORATORYCLIA [id number] [address] [place] Platelet mean volume (Bld) [Entitic vol] 9.9 fL Normal 9.0-12.7 [facility] Comment on above: Order Comment: Speci men Type: BLOOD SPECIMENOrdering Facility: [facility] Address: [address] [place] [address] Performed By: #### 5 7021-8 ####[facility] LABORATORYCLIA [id number] [address] OF [facility] Platelets (Bld) [#/Vol] 391 10*3/uL Normal 150-400 [facility] Comment on above: Order Comment: Speci men Type: BLOOD SPECIMENOrdering Facility: [facility] Address: [address] [place] [address] Performed By: #### 5 7021-8 ####[facility] LABORATORYCLIA [id number] [place] [address] [place] RBC (Bld) [#/Vol] 3.36 10*6/uL Low 4.20-6.00 [facility] Comment on above: Order Comment: Speci men Type: BLOOD SPECIMENOrdering Facility: [facility] Address: [address] [place] [address] Performed By: #### 5 7021-8 ####[facility] LABORATORYCLIA [id number] [address] STATES [facility] WBC (Bld) [#/Vol] 9.00 10*3/uL Normal 3.70-11.00 [facility] Comment on above: Order Comment: Speci men Type: BLOOD SPECIMENOrdering Facility: [facility] Address: [address] [place] [address] Performed By: #### 5 7021-8 ####[facility] LABORATORYCLIA [id number] [address] CONSULT PROGon 07-16-2021 CONSULT PROG Normal [facility] CONSULT PROG Normal [facility] Magnesium SerPl-mCncon 07-16 Magnesium [Mass/Vol] 2.3 mg/dL Normal 1.7-2.3 [facility] Comment on above: Order Comment: Speci men Type: BLOOD SPECIMENOrdering Facility: [facility] Address: [address] [place] [address] Performed By: #### 2 777-1, 02821-6, ####[facility] LABORATORYCLIA [id number] [address] [place] NURSING PROGon 07-16-2021 NURSING PROG Normal [facility] Phosphate SerPl-mCncon 07-16 Phosphate [Mass/Vol] 3.6 mg/dL Normal 2.7-4.8 [facility] Comment on above: Order Comment: Speci men Type: BLOOD SPECIMENOrdering Facility: [facility] Address: [address] [place] [address] Performed By: #### 2 777-1, 66457-8, ####[facility] LABORATORYCLIA [id number] [address] Vancomycin random [Mass/Vol] on 07-16-2021 Vancomycin [Mass/Vol] 16.9 ug/mL Normal 10.0-20.0 [facility] Comment on above: Order Comment: Speci men Type: BLOOD SPECIMENOrdering Facility: [facility] Address: [address] [place] [address] Result Comment: Refe rence ranges and high/low indicator flags are provided as general guidelines only. The treating physician must determine appropriate target levels/dosing based on the specific clinical situation. Performed By: #### 4 091-5 ####[facility] LABORATORYCLIA [id number] [address] aPTT PPPon 07-16-2021 aPTT Coag (PPP) [Time] 57.2 s High 23.0-32.4 [facility] Comment on above: Order Comment: Speci [facility] Type: BLOOD SPECIMENOrdering Facility: [facility] Address: [address] [place] [address] Performed By: #### 1 4979-9 ####[facility] LABORATORYCLIA [id number] [place] [address] [place] ALLIED HEALTHon 07-15-2021 ALLIED HEALTH Normal [facility] Basic metabolic 2000 panelon 07-15-2021 Anion gap [Moles/Vol] 11 mmol/L Normal 9-18 [facility] Comment on above: Order Comment: Speci men Type: BLOOD SPECIMENOrdering Facility: [facility] Address: [address] [place] [address] Performed By: #### 2 4321-2, , 2776-05 ####[facility] LABORATORYCLIA [id number] [place] [address] [place] Calcium [Mass/Vol] 8.8 mg/dL Normal 8.5-10.2 [facility] Comment on above: Order Comment: Speci men Type: BLOOD SPECIMENOrdering Facility: [facility] Address: [address] [place] [address] Performed By: #### 2 4321-2, , 2776-05 ####[facility] LABORATORYCLIA [id number] [place] [address] [place] Chloride [Moles/Vol] 101 mmol/L Normal 97-105 [facility] Comment on above: Order Comment: Speci men Type: BLOOD SPECIMENOrdering Facility: [facility] Address: [address] [place] [address] Performed By: #### 2 4321-2, , 2776-05 ####[facility] LABORATORYCLIA [id number] [place] [address] [place] CO2 [Moles/Vol] 31 mmol/L High 22-30 [facility] Comment on above: Order Comment: Speci men Type: BLOOD SPECIMENOrdering Facility: [facility] Address: [address] [place] [address] Performed By: #### 2 4321-2, , 2776-05 ####[facility] LABORATORYCLIA [id number] [place] [address] [place] Creatinine [Mass/Vol] 0.76 mg/dL Normal 0.73-1.22 [facility] Comment on above: Order Comment: Speci men Type: BLOOD SPECIMENOrdering Facility: [facility] Address: [address] [place] [address] Performed By: #### 2 4321-2, , 2776-05 ####[facility] LABORATORYCLIA [id number] [address] [place] ESTIMATED GLOMERULAR FILTRATION RATE 97 mL/min/1.73m??? Normal >=60 [facility] Comment on above: Order Comment: Shira feldman Type: BLOOD SPECIMENOrdering Facility: [facility] Address: [address] [place] [address] Result Comment: Luzmaria mated Glomerular Filtration Rate [...] Performed By: #### 2 4321-2, , 2776-05 ####[facility] LABORATORYCLIA [id number] [place] [address] [place] Glucose [Mass/Vol] 115 mg/dL High 74-99 [facility] Comment on above: Order Comment: Shira feldman Type: BLOOD SPECIMENOrdering Facility: [facility] Address: [address] [place] [address] Result Comment: The [place] [employer] (ADA) provides guidance for cutoff [...] Standards of Medical Care in Diabetes 2016, [place] [employer]. Diabetes Care. 2016.39(Suppl 1). Performed By: #### 2 4321-2, , 2776-05 ####[facility] LABORATORYCLIA [id number] [place] [address] [place] Potassium [Moles/Vol] 4.0 mmol/L Normal 3.7-5.1 [facility] Comment on above: Order Comment: Speci men Type: BLOOD SPECIMENOrdering Facility: [facility] Address: [address] [place] [address] Performed By: #### 2 4321-2, , 2776-05 ####[facility] LABORATORYCLIA [id number] [address] [place] Sodium [Moles/Vol] 143 mmol/L Normal 136-144 [facility] Comment on above: Order Comment: Speci men Type: BLOOD SPECIMENOrdering Facility: [facility] Address: [address] [place] [address] Performed By: #### 2 4321-2, , 2776-05 ####[facility] LABORATORYCLIA [id number] [address] STATES OF [facility] Urea nitrogen [Mass/Vol] 17 mg/dL Normal 9-24 [facility] Comment on above: Order Comment: Speci men Type: BLOOD SPECIMENOrdering Facility: [facility] Address: [address] [place] [address] Performed By: #### 2 4321-2, , 2776-05 ####[facility] LABORATORYCLIA [id number] [address] [place] CASE MANAGEMon 07-15-2021 CASE MANAGEM Normal [facility] CBC panel Auto (Bld)on 07-15 Erythrocyte distribution width (RBC) [Ratio] 16.4 % High 11.5-15.0 [facility] Comment on above: Order Comment: Speci men Type: BLOOD SPECIMENOrdering Facility: [facility] Address: [address] [place] [address] Performed By: #### 5 8410-2 ####[facility] LABORATORYCLIA [id number] [address] OF [facility] Hematocrit (Bld) [Volume fraction] 30.3 % Low 39.0-51.0 [facility] Comment on above: Order Comment: Speci men Type: BLOOD SPECIMENOrdering Facility: [facility] Address: [address] [place] [address] Performed By: #### 5 8410-2 ####[facility] LABORATORYCLIA [id number] [address] Hemoglobin (Bld) [Mass/Vol] 9.2 g/dL Low 13.0-17.0 [facility] Comment on above: Order Comment: Speci men Type: BLOOD SPECIMENOrdering Facility: [facility] Address: [address] [place] [address] Performed By: #### 5 8410-2 ####[facility] LABORATORYCLIA [id number] [address] MCH (RBC) [Entitic mass] 28.3 pg Normal 26.0-34.0 [facility] Comment on above: Order Comment: Speci men Type: BLOOD SPECIMENOrdering Facility: [facility] Address: [address] [place] [address] Performed By: #### 5 8410-2 ####[facility] LABORATORYCLIA [id number] [address] [place] MCHC (RBC) [Mass/Vol] 30.4 g/dL Low 30.5-36.0 [facility] Comment on above: Order Comment: Speci men Type: BLOOD SPECIMENOrdering Facility: [facility] Address: [address] [place] [address] Performed By: #### 5 8410-2 ####[facility] LABORATORYCLIA [id number] [address] MCV (RBC) [Entitic vol] 93.2 fL Normal 80.0-100.0 [facility] Comment on above: Order Comment: Speci men Type: BLOOD SPECIMENOrdering Facility: [facility] Address: [address] Performed By: #### 5 8410-2 ####[facility] LABORATORYCLIA [id number] [address] Nucleated RBC (Bld) [#/Vol] 10*3/uL Normal <0.01 [facility] Comment on above: Order Comment: Speci men Type: BLOOD SPECIMENOrdering Facility: [facility] Address: [address] [place] [address] Performed By: #### 5 8410-2 ####[facility] LABORATORYCLIA [id number] [address] Platelet mean volume (Bld) [Entitic vol] 9.9 fL Normal 9.0-12.7 [facility] Comment on above: Order Comment: Speci men Type: BLOOD SPECIMENOrdering Facility: [facility] Address: [address] [place] [address] Performed By: #### 5 8410-2 ####[facility] LABORATORYCLIA [id number] [address] Platelets (Bld) [#/Vol] 381 10*3/uL Normal 150-400 [facility] Comment on above: Order Comment: Speci men Type: BLOOD SPECIMENOrdering Facility: [facility] Address: [address] [place] [address] Performed By: #### 5 8410-2 ####[facility] LABORATORYCLIA [id number] [address] [place] RBC (Bld) [#/Vol] 3.25 10*6/uL Low 4.20-6.00 [facility] Comment on above: Order Comment: Speci men Type: BLOOD SPECIMENOrdering Facility: [facility] Address: [address] [place] [address] Performed By: #### 5 8410-2 ####[facility] LABORATORYCLIA [id number] [address] WBC (Bld) [#/Vol] 8.80 10*3/uL Normal 3.70-11.00 [facility] Comment on above: Order Comment: Speci men Type: BLOOD SPECIMENOrdering Facility: [facility] Address: [address] [place] [address] Performed By: #### 5 8410-2 ####[facility] LABORATORYCLIA [id number] [address] Magnesium SerPl-mCncon 07-15 Magnesium [Mass/Vol] 2.2 mg/dL Normal 1.7-2.3 [facility] Comment on above: Order Comment: Speci men Type: BLOOD SPECIMENOrdering Facility: [facility] Address: [address] [place] [address] Performed By: #### 2 4321-2, 08228-4, 2777-1 ####[facility] LABORATORYCLIA [id number] [address] NURSING PROGon 07-15-2021 NURSING PROG Normal [facility] NURSING PROG Normal [facility] NURSING PROG Normal [facility] NUTRITIONon 07-15-2021 NUTRITION Normal [facility] Phosphate SerPl-mCncon 07-15 Phosphate [Mass/Vol] 3.4 mg/dL Normal 2.7-4.8 [facility] Comment on above: Order Comment: Speci men Type: BLOOD SPECIMENOrdering Facility: [facility] Address: [address] [place] [address] Performed By: #### 2 4321-2, 81754-9, 2777- ####[facility] LABORATORYCLIA [id number] [address] [place] THERAPY NTon 07-15-2021 THERAPY NT Normal [facility] US DVT UPPER LTon 07-15-2021 US DVT UPPER LT Normal [facility] XR CHEST 1V FRONTALon 2021 XR CHEST 1V FRONTAL Normal [facility] aPTT PPPon 07-15-2021 aPTT Coag (PPP) [Time] 59.9 s High 23.0-32.4 [facility] Comment on above: Order Comment: Speci men Type: BLOOD SPECIMENOrdering Facility: [facility] Address: [address] [place] [address] Performed By: #### 1 [id number] ####[facility] LABORATORYCLIA [id number] [place] [address] [place] Basic metabolic 2000 panelon 07-14-2021 Anion gap [Moles/Vol] 9 mmol/L Normal 9-18 [facility] Comment on above: Order Comment: Speci men Type: BLOOD SPECIMENOrdering Facility: [facility] Address: [address] [place] [address] Performed By: #### 1 9123-9, 2777-1, 25550-7 ####[facility] LABORATORYCLIA [id number] [place] [address] [place] Calcium [Mass/Vol] 8.5 mg/dL Normal 8.5-10.2 [facility] Comment on above: Order Comment: Speci men Type: BLOOD SPECIMENOrdering Facility: [facility] Address: [address] [place] [address] Performed By: #### 1 9123-9, 2777-1, 05243-0 ####[facility] LABORATORYCLIA [id number] [place] [address] [place] Chloride [Moles/Vol] 99 mmol/L Normal 97-105 [facility] Comment on above: Order Comment: Speci men Type: BLOOD SPECIMENOrdering Facility: [facility] Address: [address] [place] [address] Performed By: #### 1 9123-9, 27771, 55292-6 ####[facility] LABORATORYCLIA [id number] [place] [address] [place] CO2 [Moles/Vol] 31 mmol/L High 22-30 [facility] Comment on above: Order Comment: Speci men Type: BLOOD SPECIMENOrdering Facility: [facility] Address: [address] [address] Performed By: #### 1 9123-9, 2777-, 28633-8 ####[facility]IA [id number] [place] [id number] [place] Creatinine [Mass/Vol] 0.74 mg/dL Normal 0.73-1.22 [facility] Comment on above: Order Comment: Speci men Type: BLOOD SPECIMENOrdering Facility: [facility] Address: [address] [place] [address] Performed By: #### 1 9123-9, 2777-, 65535-0 ####[facility]GIA [id number] [address] [place] ESTIMATED GLOMERULAR FILTRATION RATE 98 mL/min/1.73m??? Normal >=60 [facility] Comment on above: Order Comment: Speci men Type: BLOOD SPECIMENOrdering Facility: [facility] Address: [address] [place] [address] Result Comment: Luzmaria mated Glomerular Filtration Rate [...] GFR. Performed By: #### 1 9123-9, 2777-, 94031-0 ####[facility] LABORATORYIA [id number] [place] [address] [place] Glucose [Mass/Vol] 117 mg/dL High 74-99 [facility] Comment on above: Order Comment: Shira feldman Type: BLOOD SPECIMENOrdering Facility: [facility] Address: [address] [place] [address] Result Comment: The [place] [employer] (ADA) provides guidance for cutoff [...] Standards of Medical Care in Diabetes 2016, [place] [employer]. Diabetes Care. 2016.39(Suppl 1). Performed By: #### 1 9123-9, 2777-, 38612-3 ####[facility]ORATORYCLIA [id number] [place] [address] [place] Potassium [Moles/Vol] 3.7 mmol/L Normal 3.7-5.1 [facility] Comment on above: Order Comment: Shira feldman Type: BLOOD SPECIMENOrdering Facility: [facility] Address: [address] [place] [address] Performed By: #### 1 9123-9, 2777-, 72652-3 ####[facility]ATORYCLIA [id number] [place] [address] [place] Sodium [Moles/Vol] 139 mmol/L Normal 136-144 [facility] Comment on above: Order Comment: Shira feldman Type: BLOOD SPECIMENOrdering Facility: [facility] Address: [address] [place] [address] Performed By: #### 1 9123-9, 2777, 50137-2 ####[facility]ATORYCLIA [id number] [place] [address] [place] Urea nitrogen [Mass/Vol] 16 mg/dL Normal 9-24 [facility] Comment on above: Order Comment: Johni men Type: BLOOD SPECIMENOrdering Facility: [facility] Address: [address] [place] [address] Performed By: #### 1 9123-9, 2777-, 51705-3 ####[facility] LABORATORYCLIA [id number] [place] [address] CBC panel Auto (Bld)on 07-14 Erythrocyte distribution width (RBC) [Ratio] 16.2 % High 11.5-15.0 [facility] Comment on above: Order Comment: Speci men Type: BLOOD SPECIMENOrdering Facility: [facility] Address: [address] [place] [address] Performed By: #### 5 8410-2 ####[facility]ORATORYCLIA [id number] [address] Hematocrit (Bld) [Volume fraction] 29.7 % Low 39.0-51.0 [facility] Comment on above: Order Comment: Speci men Type: BLOOD SPECIMENOrdering Facility: [facility] Address: [address] [place] [address] Performed By: #### 5 8410-2 ####[facility]ORATORYCLIA [id number] [address] Hemoglobin (Bld) [Mass/Vol] 8.8 g/dL Low 13.0-17.0 [facility] Comment on above: Order Comment: Speci men Type: BLOOD SPECIMENOrdering Facility: [facility] Address: [address] [place] [address] Performed By: #### 5 8410-2 ####[facility]ORATORYCLIA [id number] [address] MCH (RBC) [Entitic mass] 27.5 pg Normal 26.0-34.0 [facility] Comment on above: Order Comment: Speci men Type: BLOOD SPECIMENOrdering Facility: [facility] Address: [address] [place] [address] Performed By: #### 5 8410-2 ####[facility]ORATORYCLIA [id number] [address] MCHC (RBC) [Mass/Vol] 29.6 g/dL Low 30.5-36.0 [facility] Comment on above: Order Comment: Speci men Type: BLOOD SPECIMENOrdering Facility: [facility] Address: [address] [address] Performed By: #### 5 8410-2 ####[facility]ORATORYCLIA [id number] [address] MCV (RBC) [Entitic vol] 92.8 fL Normal 80.0-100.0 [facility] Comment on above: Order Comment: Speci men Type: BLOOD SPECIMENOrdering Facility: [facility] Address: [address] [place] [address] Performed By: #### 5 8410-2 ####[facility]ORATORYCLIA [id number] [address] Nucleated RBC (Bld) [#/Vol] 10*3/uL Normal <0.01 [facility] Comment on above: Order Comment: Speci men Type: BLOOD SPECIMENOrdering Facility: [facility] Address: [address] [place] [address] Performed By: #### 5 8410-2 ####[facility]ORATORYCLIA [id number] [address] Platelet mean volume (Bld) [Entitic vol] 9.6 fL Normal 9.0-12.7 [facility] Comment on above: Order Comment: Speci men Type: BLOOD SPECIMENOrdering Facility: [facility] Address: [address] [address] Performed By: #### 5 8410-2 ####[facility]ORATORYCLIA [id number] [address] Platelets (Bld) [#/Vol] 354 10*3/uL Normal 150-400 [facility] Comment on above: Order Comment: Speci men Type: BLOOD SPECIMENOrdering Facility: [facility] Address: [address] [place] [address] Performed By: #### 5 8410-2 ####[facility]ORATORYCLIA [id number] [address] RBC (Bld) [#/Vol] 3.20 10*6/uL Low 4.20-6.00 [facility] Comment on above: Order Comment: Speci men Type: BLOOD SPECIMENOrdering Facility: [facility] Address: [address] [place] [address] Performed By: #### 5 8410-2 ####[facility]ORATORYCLIA [id number] [address] WBC (Bld) [#/Vol] 9.41 10*3/uL Normal 3.70-11.00 [facility] Comment on above: Order Comment: Speci men Type: BLOOD SPECIMENOrdering Facility: [facility] Address: [address] [place] [address] Performed By: #### 5 8410-2 ####[facility]ORATORYCLIA [id number] [address] CONSULT PROGon 07-14-2021 CONSULT PROG Normal [facility] Magnesium SerPl-mCncon 07-14 Magnesium [Mass/Vol] 2.2 mg/dL Normal 1.7-2.3 [facility] Comment on above: Order Comment: Speci men Type: BLOOD SPECIMENOrdering Facility: [facility] Address: [address] [place] [address] Performed By: #### 1 9123-9, 2777-1, 22975-4 ####[facility]ATORYCLIA [id number] [address] NURSING PROGon 07-14-2021 NURSING PROG Normal [facility] Phosphate SerPl-mCncon 07-14 Phosphate [Mass/Vol] 3.6 mg/dL Normal 2.7-4.8 [facility] Comment on above: Order Comment: Speci men Type: BLOOD SPECIMENOrdering Facility: [facility] Address: [address] [place] [address] Performed By: #### 1 9123-9, 2777-1, 70220-0 ####[facility]ATORYCLIA [id number] [place] [address] [place] aPTT PPPon 07-14-2021 aPTT Coag (PPP) [Time] 62.9 s High 23.0-32.4 [facility] Comment on above: Order Comment: Speci men Type: BLOOD SPECIMENOrdering Facility: [facility] Address: [address] [place] [address] Performed By: #### 1 4979-9 ####[facility]ATORYCLIA [id number] [address] [place] aPTT Coag (PPP) [Time] 55.2 s High 23.0-32.4 [facility] Comment on above: Order Comment: Speci men Type: BLOOD SPECIMENOrdering Facility: [facility] Address: [address] [place] [address] Performed By: #### 1 4979-9 ####[facility]ATORYCLIA [id number] [place] [address] [place] Basic metabolic 2000 panelon 07-13-2021 Anion gap [Moles/Vol] 10 mmol/L Normal 9-18 [facility] Comment on above: Order Comment: Speci men Type: BLOOD SPECIMENOrdering Facility: [facility] Address: [address] [place] [address] Performed By: #### 1 9123-9, 2777-1, 84268-5 ####[facility]ATORYCLIA [id number] [place] [address] [place] Calcium [Mass/Vol] 8.5 mg/dL Normal 8.5-10.2 [facility] Comment on above: Order Comment: Speci men Type: BLOOD SPECIMENOrdering Facility: [facility] Address: [address] [place] [address] Performed By: #### 1 9123-9, 2777-1, 14887-7 ####[facility]ATORYCLIA [id number] [address] [place] Chloride [Moles/Vol] 98 mmol/L Normal 97-105 [facility] Comment on above: Order Comment: Speci men Type: BLOOD SPECIMENOrdering Facility: [facility] Address: [address] [place] [address] Performed By: #### 1 9123-9, 2777, 58523-3 ####[facility]ORATORYCLIA [id number] [address] [place] CO2 [Moles/Vol] 32 mmol/L High 22-30 [facility] Comment on above: Order Comment: Speci men Type: BLOOD SPECIMENOrdering Facility: [facility] Address: [address] [place] [address] Performed By: #### 1 9123-9, 27711-04, 75024-8 ####[facility]ORATORYCLIA [id number] [address] OF [facility] Creatinine [Mass/Vol] 0.75 mg/dL Normal 0.73-1.22 [facility] Comment on above: Order Comment: Speci men Type: BLOOD SPECIMENOrdering Facility: [facility] Address: [address] [place] [address] Performed By: #### 1 9123-9, 27711-04, 25660-5 ####[facility]ATORYCLIA [id number] [address] ESTIMATED GLOMERULAR FILTRATION RATE 98 mL/min/1.73m??? Normal >=60 [facility] Comment on above: Order Comment: Speci men Type: BLOOD SPECIMENOrdering Facility: [facility] Address: [address] [place] [address] Result Comment: Luzmaria mated Glomerular Filtration Rate [...] GFR. Performed By: #### 1 9123-9, 2777-, 21402-6 ####[facility]ATORYCLIA [id number] [place] [address] [place] Glucose [Mass/Vol] 118 mg/dL High 74-99 [facility] Comment on above: Order Comment: Speci men Type: BLOOD SPECIMENOrdering Facility: [facility] Address: [address] [place] [address] Result Comment: The [place] [employer] (ADA) provides guidance for cutoff [...] Standards of Medical Care in Diabetes 2016, [place] [employer]. Diabetes Care. 2016.39(Suppl 1). Performed By: #### 1 9123-9, 2777-, 30375-9 ####[facility]ORATORYCLIA [id number] [place] [address] [place] Potassium [Moles/Vol] 3.6 mmol/L Low 3.7-5.1 [facility] Comment on above: Order Comment: Speci men Type: BLOOD SPECIMENOrdering Facility: [facility] Address: [address] [place] [address] Performed By: #### 1 9123-9, 2777-, 64971-3 ####[facility]ATORYCLIA [id number] [place] [address] [place] Sodium [Moles/Vol] 140 mmol/L Normal 136-144 [facility] Comment on above: Order Comment: Speci men Type: BLOOD SPECIMENOrdering Facility: [facility] Address: [address] [place] [address] Performed By: #### 1 9123-9, 2777-1, 03394-5 ####[facility]ORATORYCLIA [id number] [place], [place] [address] [place] [address] [place] Urea nitrogen [Mass/Vol] 15 mg/dL Normal 9-24 [facility] Comment on above: Order Comment: Speci men Type: BLOOD SPECIMENOrdering Facility: [facility] Address: [address] [place] [address] Performed By: #### 1 9123-9, 2777-, 39790-8 ####[facility]ORATORYCLIA [id number] [address] [place] CASE MANAGEMon 07-13-2021 CASE MANAGEM Normal [facility] CBC panel Auto (Bld)on 07-13 Erythrocyte distribution width (RBC) [Ratio] 16.2 % High 11.5-15.0 [facility] Comment on above: Order Comment: Speci men Type: BLOOD SPECIMENOrdering Facility: [facility] Address: [address] [place] [address] Performed By: #### 5 8410-2 ####[facility]ORATORYCLIA [id number] [address] [place] Hematocrit (Bld) [Volume fraction] 29.5 % Low 39.0-51.0 [facility] Comment on above: Order Comment: Speci men Type: BLOOD SPECIMENOrdering Facility: [facility] Address: [address] [place] [address] Performed By: #### 5 8410-2 ####[facility]ORATORYCLIA [id number] [address] [place] Hemoglobin (Bld) [Mass/Vol] 8.9 g/dL Low 13.0-17.0 [facility] Comment on above: Order Comment: Speci men Type: BLOOD SPECIMENOrdering Facility: [facility] Address: [address] [place] [address] Performed By: #### 5 8410-2 ####[facility]ORATORYCLIA [id number] [address] MCH (RBC) [Entitic mass] 27.8 pg Normal 26.0-34.0 [facility] Comment on above: Order Comment: Speci men Type: BLOOD SPECIMENOrdering Facility: [facility] Address: [address] [place] [address] Performed By: #### 5 8410-2 ####[facility]ATORYCLIA [id number] [address] MCHC (RBC) [Mass/Vol] 30.2 g/dL Low 30.5-36.0 [facility] Comment on above: Order Comment: Speci men Type: BLOOD SPECIMENOrdering Facility: [facility] Address: [address] [place] [address] Performed By: #### 5 8410-2 ####[facility]ATORYCLIA [id number] [address] MCV (RBC) [Entitic vol] 92.2 fL Normal 80.0-100.0 [facility] Comment on above: Order Comment: Speci men Type: BLOOD SPECIMENOrdering Facility: [facility] Address: [address] [place] [address] Performed By: #### 5 8410-2 ####[facility]ORATORYCLIA [id number] [address] Nucleated RBC (Bld) [#/Vol] 10*3/uL Normal <0.01 [facility] Comment on above: Order Comment: Speci men Type: BLOOD SPECIMENOrdering Facility: [facility] Address: [address] [place] [address] Performed By: #### 5 8410-2 ####[facility]ATORYCLIA [id number] [address] Platelet mean volume (Bld) [Entitic vol] 9.8 fL Normal 9.0-12.7 [facility] Comment on above: Order Comment: Speci men Type: BLOOD SPECIMENOrdering Facility: [facility] Address: [address] [place] [address] Performed By: #### 5 8410-2 ####[facility]ORATORYCLIA [id number] [address] OF [facility] Platelets (Bld) [#/Vol] 356 10*3/uL Normal 150-400 [facility] Comment on above: Order Comment: Speci men Type: BLOOD SPECIMENOrdering Facility: [facility] Address: [address] [place] [address] Performed By: #### 5 8410-2 ####[facility]ORATORYCLIA [id number] [place] [address] [place] RBC (Bld) [#/Vol] 3.20 10*6/uL Low 4.20-6.00 [facility] Comment on above: Order Comment: Speci men Type: BLOOD SPECIMENOrdering Facility: [facility] Address: [address] [place] [address] Performed By: #### 5 8410-2 ####[facility]ORATORYCLIA [id number] [address] STATES OF [facility] WBC (Bld) [#/Vol] 9.20 10*3/uL Normal 3.70-11.00 [facility] Comment on above: Order Comment: Speci men Type: BLOOD SPECIMENOrdering Facility: [facility] Address: [address] [place] [address] Performed By: #### 5 8410-2 ####[facility]ORATORYCLIA [id number] [address] CONSULT PROGon 07-13-2021 CONSULT PROG Normal [facility] CONSULT PROG Normal [facility] CONSULT PROG Normal [facility] Magnesium SerPl-mCncon 07-13 Magnesium [Mass/Vol] 2.1 mg/dL Normal 1.7-2.3 [facility] Comment on above: Order Comment: Speci men Type: BLOOD SPECIMENOrdering Facility: [facility] Address: [address] [place], [place] [address] Performed By: #### 1 9123-9, 2777-1, 09323-2 ####[facility]ATORYCLIA [id number] [address] Phosphate SerPl-mCncon 07-13 Phosphate [Mass/Vol] 3.7 mg/dL Normal 2.7-4.8 [facility] Comment on above: Order Comment: Speci men Type: BLOOD SPECIMENOrdering Facility: [facility] Address: [address] [address] Performed By: #### 1 9123-9, 2777-1, 89449-5 ####[facility]CLIA [id number] [address] THERAPY NTon 07-13-2021 THERAPY NT Normal [facility] THERAPY NT Normal [facility] Vancomycin random [Mass/Vol] on 07-13-2021 Vancomycin [Mass/Vol] 31.7 ug/mL High 10.0-20.0 [facility] Comment on above: Order Comment: Speci men Type: BLOOD SPECIMENOrdering Facility: [facility] Address: [address] [place] [address] Result Comment: Refe rence ranges and high/low indicator flags are provided as general guidelines only. The treating physician must determine appropriate target levels/dosing based on the specific clinical situation. Performed By: #### 4 091-5 ####[facility]ORATORYCLIA [id number] [address] aPTT PPPon 07-13-2021 aPTT Coag (PPP) [Time] 47.3 s High 23.0-32.4 [facility] Comment on above: Order Comment: Speci men Type: BLOOD SPECIMENOrdering Facility: [facility] Address: [facility] [place] [address] Performed By: #### 1 4979-9 ####[facility] LABORATORYCLIA [id number] [address] aPTT Coag (PPP) [Time] 51.2 s High 23.0-32.4 [facility] Comment on above: Order Comment: Speci men Type: BLOOD SPECIMENOrdering Facility: [facility] Address: [address] [place] [address] Performed By: #### 1 4979-9 ####[facility]ORATORYCLIA [id number] [place] [address] [place] aPTT Coag (PPP) [Time] 47.5 s High 23.0-32.4 [facility] Comment on above: Order Comment: Speci men Type: BLOOD SPECIMENOrdering Facility: [facility] Address: [address] [place] [address] Performed By: #### 1 4979-9 ####[facility]ORATORYCLIA [id number] [place] [address] [place] Basic metabolic 2000 panelon 07-12-2021 Anion gap [Moles/Vol] 7 mmol/L Low 9-18 [facility] Comment on above: Order Comment: Speci men Type: BLOOD SPECIMENOrdering Facility: [facility] Address: [address] [place] [address] Performed By: #### 1 9123-9, 2777-1, 03227-5 ####[facility]CLIA [id number] [place] [address] [place] Calcium [Mass/Vol] 8.3 mg/dL Low 8.5-10.2 [facility] Comment on above: Order Comment: Speci men Type: BLOOD SPECIMENOrdering Facility: [facility] Address: [address] [place] [address] Performed By: #### 1 9123-9, 2777-1, 92581-1 ####[facility] LABORATORYCLIA [id number] [address] [place] Chloride [Moles/Vol] 101 mmol/L Normal 97-105 [facility] Comment on above: Order Comment: Speci men Type: BLOOD SPECIMENOrdering Facility: [facility] Address: [address] [place] [address] Performed By: #### 1 9123-9, 2777, 75875-9 ####[facility]REM[facility]CLIA [id number] [place] [address] [place] CO2 [Moles/Vol] 32 mmol/L High 22-30 [facility] Comment on above: Order Comment: Speci men Type: BLOOD SPECIMENOrdering Facility: [facility] Address: [address] [place] [address] Performed By: #### 1 9123-9, 27711-04, 06073-2 ####[facility] LABORATORYCLIA [id number] [address] STATES OF [facility] Creatinine [Mass/Vol] 0.70 mg/dL Low 0.73-1.22 [facility] Comment on above: Order Comment: Speci men Type: BLOOD SPECIMENOrdering Facility: [facility] Address: [address] [place] [address] Performed By: #### 1 9123-9, 27711-04, 59298-2 ####[facility]IA [id number] [address] ESTIMATED GLOMERULAR FILTRATION RATE 100 mL/min/1.73m??? Normal >=60 [facility] Comment on above: Order Comment: Speci men Type: BLOOD SPECIMENOrdering Facility: [facility] Address: [address] [place] [address] Result Comment: Luzmaria mated Glomerular Filtration Rate [...] GFR. Performed By: #### 1 9123-9, 2777-1, 53306-9 ####[facility] LABORATORYCLIA [id number] [place] [address] [place] Glucose [Mass/Vol] 104 mg/dL High 74-99 [facility] Comment on above: Order Comment: Shira feldman Type: BLOOD SPECIMENOrdering Facility: [facility] Address: [address] [place], [place] [id number] Result Comment: The [place] [employer] (ADA) provides guidance for cutoff [...] Standards of Medical Care in Diabetes 2016, [place] [employer]. Diabetes Care. 2016.39(Suppl 1). Performed By: #### 1 9123-9, 2777-, 37611-7 ####[facility] LABORATORYCLIA [id number] [place] [address] [place] Potassium [Moles/Vol] 3.7 mmol/L Normal 3.7-5.1 [facility] Comment on above: Order Comment: Shira feldman Type: BLOOD SPECIMENOrdering Facility: [facility] Address: [address] [place], [place] [address] Performed By: #### 1 9123-9, 2777-, 11564-9 ####[facility] LABORATORYCLIA [id number] [place] [address] [place] Sodium [Moles/Vol] 140 mmol/L Normal 136-144 [facility] Comment on above: Order Comment: Shira feldman Type: BLOOD SPECIMENOrdering Facility: [facility] Address: [address] [place], [place] [phone] Performed By: #### 1 9123-9, 2777-, 94516-5 ####[facility] LABORATORYCLIA [id number] [place] [address] [place] Urea nitrogen [Mass/Vol] 12 mg/dL Normal 9-24 [facility] Comment on above: Order Comment: Speci men Type: BLOOD SPECIMENOrdering Facility: [facility] Address: [address] [place] [address] Performed By: #### 1 9123-9, 2777-1, 50442-1 ####[facility] LABORATORYCLIA [id number] [address] CBC panel Auto (Bld)on 07-12 Erythrocyte distribution width (RBC) [Ratio] 16.1 % High 11.5-15.0 [facility] Comment on above: Order Comment: Speci men Type: BLOOD SPECIMENOrdering Facility: [facility] Address: [address] [place] [address] Performed By: #### 5 8410-2 ####[facility] LABORATORYCLIA [id number] [address] Hematocrit (Bld) [Volume fraction] 28.2 % Low 39.0-51.0 [facility] Comment on above: Order Comment: Speci men Type: BLOOD SPECIMENOrdering Facility: [facility] Address: [address] [place] [address] Performed By: #### 5 8410-2 ####[facility] LABORATORYCLIA [id number] [address] Hemoglobin (Bld) [Mass/Vol] 8.5 g/dL Low 13.0-17.0 [facility] Comment on above: Order Comment: Speci men Type: BLOOD SPECIMENOrdering Facility: [facility] Address: [address] [place] [address] Performed By: #### 5 8410-2 ####[facility] LABORATORYCLIA [id number] [address] MCH (RBC) [Entitic mass] 26.8 pg Normal 26.0-34.0 [facility] Comment on above: Order Comment: Speci men Type: BLOOD SPECIMENOrdering Facility: [facility] Address: [address] [place] [address] Performed By: #### 5 8410-2 ####[facility] LABORATORYCLIA [id number] [address] MCHC (RBC) [Mass/Vol] 30.1 g/dL Low 30.5-36.0 [facility] Comment on above: Order Comment: Speci men Type: BLOOD SPECIMENOrdering Facility: [facility] Address: [address] [place] [address] Performed By: #### 5 8410-2 ####[facility] LABORATORYCLIA [id number] [address] [place] MCV (RBC) [Entitic vol] 89.0 fL Normal 80.0-100.0 [facility] Comment on above: Order Comment: Speci men Type: BLOOD SPECIMENOrdering Facility: [facility] Address: [address] [place] [address] Performed By: #### 5 8410-2 ####[facility] LABORATORYCLIA [id number] [address] [facility] Nucleated RBC (Bld) [#/Vol] 10*3/uL Normal <0.01 [facility] Comment on above: Order Comment: Speci men Type: BLOOD SPECIMENOrdering Facility: [facility] Address: [address] [place] [address] Performed By: #### 5 8410-2 ####[facility] LABORATORYCLIA [id number] [address] Platelet mean volume (Bld) [Entitic vol] 9.6 fL Normal 9.0-12.7 [facility] Comment on above: Order Comment: Speci men Type: BLOOD SPECIMENOrdering Facility: [facility] Address: [address] [place] [address] Performed By: #### 5 8410-2 ####[facility] LABORATORYCLIA [id number] [address] [place] Platelets (Bld) [#/Vol] 340 10*3/uL Normal 150-400 [facility] Comment on above: Order Comment: Speci men Type: BLOOD SPECIMENOrdering Facility: [facility] Address: [address] [place] [address] Performed By: #### 5 8410-2 ####[facility] LABORATORYCLIA [id number] [address] [facility] RBC (Bld) [#/Vol] 3.17 10*6/uL Low 4.20-6.00 [facility] Comment on above: Order Comment: Speci men Type: BLOOD SPECIMENOrdering Facility: [facility] Address: [address] [place] [address] Performed By: #### 5 8410-2 ####[facility] LABORATORYCLIA [id number] [address] WBC (Bld) [#/Vol] 8.66 10*3/uL Normal 3.70-11.00 [facility] Comment on above: Order Comment: Speci men Type: BLOOD SPECIMENOrdering Facility: [facility] Address: [address] [place] [address] Performed By: #### 5 8410-2 ####[facility] LABORATORYCLIA [id number] [address] CONSULTon 07-12-2021 CONSULT Normal [facility] CONSULT PROGon 07-12-2021 CONSULT PROG Normal [facility] Magnesium SerPl-mCncon 07-12 Magnesium [Mass/Vol] 2.1 mg/dL Normal 1.7-2.3 [facility] Comment on above: Order Comment: Speci men Type: BLOOD SPECIMENOrdering Facility: [facility] Address: [address] [place] [address] Performed By: #### 1 9123-9, 2777-1, 57451-1 ####[facility] LABORATORYCLIA [id number] [address] NURSING PROGon 07-12-2021 NURSING PROG Normal [facility] Phosphate SerPl-mCncon 07-12 Phosphate [Mass/Vol] 3.1 mg/dL Normal 2.7-4.8 [facility] Comment on above: Order Comment: Speci men Type: BLOOD SPECIMENOrdering Facility: [facility] Address: [address] [place] [address] Performed By: #### 1 9123-9, 2777-1, 39675-6 ####[facility] LABORATORYCLIA [id number] [address] THERAPY NTon 07-12-2021 THERAPY NT Normal [facility] aPTT PPPon 07-12-2021 aPTT Coag (PPP) [Time] 49.5 s High 23.0-32.4 [facility] Comment on above: Order Comment: Speci men Type: BLOOD SPECIMENOrdering Facility: [facility] Address: [address] [place] [address] Performed By: #### 1 4979-9 ####[facility] LABORATORYCLIA [id number] [address] aPTT Coag (PPP) [Time] 68.0 s High 23.0-32.4 [facility] Comment on above: Order Comment: Speci men Type: BLOOD SPECIMENOrdering Facility: [facility] Address: [address] [place] [address] Performed By: #### 1 4979-9 ####[facility] LABORATORYCLIA [id number] [address] aPTT Coag (PPP) [Time] 80.0 s High 23.0-32.4 [facility] Comment on above: Order Comment: Speci men Type: BLOOD SPECIMENOrdering Facility: [facility] Address: [address] [place] [address] Performed By: #### 1 4979-9 ####[facility] LABORATORYCLIA [id number] [address] CASE MGT INIT ASSESon 2021 CASE MGT INIT ASSES Normal [facility] CBC panel Auto (Bld)on 07-11 Erythrocyte distribution width (RBC) [Ratio] 16.3 % High 11.5-15.0 [facility] Comment on above: Order Comment: Speci men Type: BLOOD SPECIMENOrdering Facility: [facility] Address: [address] [place] [address] Performed By: #### 5 8410-2 ####[facility] LABORATORYCLIA [id number] [address] Hematocrit (Bld) [Volume fraction] 28.3 % Low 39.0-51.0 [facility] Comment on above: Order Comment: Speci men Type: BLOOD SPECIMENOrdering Facility: [facility] Address: [address] [place] [address] Performed By: #### 5 8410-2 ####[facility] LABORATORYCLIA [id number] [address] Hemoglobin (Bld) [Mass/Vol] 8.8 g/dL Low 13.0-17.0 [facility] Comment on above: Order Comment: Speci men Type: BLOOD SPECIMENOrdering Facility: [facility] Address: [address] [place] [address] Performed By: #### 5 8410-2 ####[facility] LABORATORYCLIA [id number] [address] [facility] MCH (RBC) [Entitic mass] 27.4 pg Normal 26.0-34.0 [facility] Comment on above: Order Comment: Speci men Type: BLOOD SPECIMENOrdering Facility: [facility] Address: [address] [place] [address] Performed By: #### 5 8410-2 ####[facility] LABORATORYCLIA [id number] [address] [place] MCHC (RBC) [Mass/Vol] 31.1 g/dL Normal 30.5-36.0 [facility] Comment on above: Order Comment: Speci men Type: BLOOD SPECIMENOrdering Facility: [facility] Address: [address] [address] Performed By: #### 5 8410-2 ####[facility] LABORATORYCLIA [id number] [address] [facility] MCV (RBC) [Entitic vol] 88.2 fL Normal 80.0-100.0 [facility] Comment on above: Order Comment: Speci men Type: BLOOD SPECIMENOrdering Facility: [facility] Address: [address] [place] [address] Performed By: #### 5 8410-2 ####[facility] LABORATORYCLIA [id number] [address] [place] Nucleated RBC (Bld) [#/Vol] 10*3/uL Normal <0.01 [facility] Comment on above: Order Comment: Speci men Type: BLOOD SPECIMENOrdering Facility: [facility] Address: [address] [address] Performed By: #### 5 8410-2 ####[facility] LABORATORYCLIA [id number] [address] Platelet mean volume (Bld) [Entitic vol] 9.7 fL Normal 9.0-12.7 [facility] Comment on above: Order Comment: Speci men Type: BLOOD SPECIMENOrdering Facility: [facility] Address: [address] [address] Performed By: #### 5 8410-2 ####[facility] LABORATORYCLIA [id number] [address] [place] Platelets (Bld) [#/Vol] 315 10*3/uL Normal 150-400 [facility] Comment on above: Order Comment: Speci men Type: BLOOD SPECIMENOrdering Facility: [facility] Address: [address] [address] Performed By: #### 5 8410-2 ####[facility] LABORATORYCLIA [id number] [address] [facility] RBC (Bld) [#/Vol] 3.21 10*6/uL Low 4.20-6.00 [facility] Comment on above: Order Comment: Speci men Type: BLOOD SPECIMENOrdering Facility: [facility] Address: [address] [place] [address] Performed By: #### 5 8410-2 ####[facility] LABORATORYCLIA [id number] [address] WBC (Bld) [#/Vol] 9.18 10*3/uL Normal 3.70-11.00 [facility] Comment on above: Order Comment: Speci men Type: BLOOD SPECIMENOrdering Facility: [facility] Address: [address] [place] [address] Performed By: #### 5 8410-2 ####[facility] LABORATORYCLIA [id number] [address] CONSULT PROGon 07-11-2021 CONSULT PROG Normal [facility] CT BRAIN WO IVCONon 07-12-[address] BRAIN WO IVCON Normal [facility] Magnesium SerPl-mCncon 07-11 Magnesium [Mass/Vol] 2.1 mg/dL Normal 1.7-2.3 [facility] Comment on above: Order Comment: Speci men Type: BLOOD SPECIMENOrdering Facility: [facility] Address: [address] [place] [address] Performed By: #### 1 9123-9, 2777-1 ####[facility] LABORATORYCLIA [id number] [address] NURSING PROGon 07-11-2021 NURSING PROG Normal [facility] NURSING PROG Normal [facility] Phosphate SerPl-mCncon 07-11 Phosphate [Mass/Vol] 3.4 mg/dL Normal 2.7-4.8 [facility] Comment on above: Order Comment: Speci men Type: BLOOD SPECIMENOrdering Facility: [facility] Address: [address] [place] [address] Performed By: #### 1 9123-9, 2777-1 ####[facility] LABORATORYCLIA [id number] [address] [facility] THERAPY NTon 07-11-2021 THERAPY NT Normal [facility] Vancomycin random [Mass/Vol] on 07-11-2021 Vancomycin [Mass/Vol] 28.6 ug/mL High 10.0-20.0 [facility] Comment on above: Order Comment: Speci men Type: BLOOD SPECIMENOrdering Facility: [facility] Address: [address] [place] [address] Result Comment: Refe rence ranges and high/low indicator flags are provided as general guidelines only. The treating physician must determine appropriate target levels/dosing based on the specific clinical situation. Performed By: #### 4 091-5 ####[facility] LABORATORYCLIA [id number] [address] [facility] aPTT PPPon 07-11-2021 aPTT Coag (PPP) [Time] 62.0 s High 23.0-32.4 [facility] Comment on above: Order Comment: Speci men Type: BLOOD SPECIMENOrdering Facility: [facility] Address: [address] [place] [address] Performed By: #### 1 4979-9 ####[facility] LABORATORYCLIA [id number] [address] aPTT Coag (PPP) [Time] 52.7 s High 23.0-32.4 [facility] Comment on above: Order Comment: Speci men Type: BLOOD SPECIMENOrdering Facility: [facility] Address: [address] [place] [address] Performed By: #### 1 4979-9 ####[facility] LABORATORYCLIA [id number] [address] aPTT Coag (PPP) [Time] 29.9 s Normal 23.0-32.4 [facility] Comment on above: Order Comment: Speci men Type: BLOOD SPECIMENOrdering Facility: [facility] Address: [address] [place] [address] Performed By: #### 1 4979-9 ####[facility] LABORATORYCLIA [id number] [place] [address] [place] Basic metabolic 2000 panelon 07-10-2021 Anion gap [Moles/Vol] 14 mmol/L Normal 9-18 [facility] Comment on above: Order Comment: Speci men Type: BLOOD SPECIMENOrdering Facility: [facility] Address: [address] [place] [address] Performed By: #### 1 9123-9, 2777-1, 87744-6 ####[facility] LABORATORYCLIA [id number] [place] [address] [place] Calcium [Mass/Vol] 8.5 mg/dL Normal 8.5-10.2 [facility] Comment on above: Order Comment: Speci men Type: BLOOD SPECIMENOrdering Facility: [facility] Address: [address] [place] [address] Performed By: #### 1 9123-9, 2777-1, 41386-0 ####[facility] LABORATORYCLIA [id number] [place] [address] [place] Chloride [Moles/Vol] 100 mmol/L Normal 97-105 [facility] Comment on above: Order Comment: Speci men Type: BLOOD SPECIMENOrdering Facility: [facility] Address: [address] [place] [address] Performed By: #### 1 9123-9, 2777-1, 71579-1 ####[facility] LABORATORYCLIA [id number] [place] [address] [place] CO2 [Moles/Vol] 27 mmol/L Normal 22-30 [facility] Comment on above: Order Comment: Speci men Type: BLOOD SPECIMENOrdering Facility: [facility] Address: [address] [place] [address] Performed By: #### 1 9123-9, 2777-1, 22192-8 ####[facility]CLIA [id number] [place] [address] [place] [facility] Creatinine [Mass/Vol] 0.66 mg/dL Low 0.73-1.22 [facility] Comment on above: Order Comment: Speci francia Type: BLOOD SPECIMENOrdering Facility: [facility] Address: [address] [phone] Performed By: #### 1 9123-9, 2777-1, 44436-9 ####[facility]GIA [id number] [place] [address] [facility] ESTIMATED GLOMERULAR FILTRATION RATE 102 mL/min/1.73m??? Normal >=60 [facility] Comment on above: Order Comment: Speci francia Type: BLOOD SPECIMENOrdering Facility: [facility] Address: [address] [place], [place] [address] Result Comment: Luzmaria mated Glomerular Filtration Rate [...] GFR. Performed By: #### 1 9123-9, 2777-1, 61607-3 ####[facility]IA [id number] [place] [address] [place] Glucose [Mass/Vol] 93 mg/dL Normal 74-99 [facility] Comment on above: Order Comment: Speci men Type: BLOOD SPECIMENOrdering Facility: [facility] Address: [address] [phone] Result Comment: The [place] [employer] (ADA) provides guidance for cutoff [...] Standards of Medical Care in Diabetes 2016, [place] [employer]. Diabetes Care. 2016.39(Suppl 1). Performed By: #### 1 9123-9, 2777-1, 90345-3 ####[facility] LABORATORYCLIA [id number] [place] [address] [place] Potassium [Moles/Vol] 3.5 mmol/L Low 3.7-5.1 [facility] Comment on above: Order Comment: Shira feldman Type: BLOOD SPECIMENOrdering Facility: [facility] Address: [address] [place] [address] Performed By: #### 1 9123-9, 2777, 47605-1 ####[facility]REM[facility]CLIA [id number] [address] [place] [facility] Sodium [Moles/Vol] 141 mmol/L Normal 136-144 [facility] Comment on above: Order Comment: Shira feldman Type: BLOOD SPECIMENOrdering Facility: [facility] Address: [address] [place] [address] Performed By: #### 1 9123-9, 2777, 50832-1 ####[facility]REM[facility]CLIA [id number] [address] [place] Urea nitrogen [Mass/Vol] 11 mg/dL Normal 9-24 [facility] Comment on above: Order Comment: Shira feldman Type: BLOOD SPECIMENOrdering Facility: [facility] Address: [address] [place] [address] Performed By: #### 1 9123-9, 2777, 34489-7 ####[facility] LABORATORYCLIA [id number] [address] [place] CBC panel Auto (Bld)on 07-10 Erythrocyte distribution width (RBC) [Ratio] 16.2 % High 11.5-15.0 [facility] Comment on above: Order Comment: Speci men Type: BLOOD SPECIMENOrdering Facility: [facility] Address: [address] [place] [address] Performed By: #### 5 8410-2 ####[facility] LABORATORYCLIA [id number] [address] Hematocrit (Bld) [Volume fraction] 30.6 % Low 39.0-51.0 [facility] Comment on above: Order Comment: Speci men Type: BLOOD SPECIMENOrdering Facility: [facility] Address: [address] [place] [address] Performed By: #### 5 8410-2 ####[facility] LABORATORYCLIA [id number] [address] [facility] Hemoglobin (Bld) [Mass/Vol] 9.6 g/dL Low 13.0-17.0 [facility] Comment on above: Order Comment: Speci men Type: BLOOD SPECIMENOrdering Facility: [facility] Address: [address] [place] [address] Performed By: #### 5 8410-2 ####[facility] LABORATORYCLIA [id number] [address] MCH (RBC) [Entitic mass] 28.3 pg Normal 26.0-34.0 [facility] Comment on above: Order Comment: Speci men Type: BLOOD SPECIMENOrdering Facility: [facility] Address: [address] [place] [address] Performed By: #### 5 8410-2 ####[facility] LABORATORYCLIA [id number] [address] MCHC (RBC) [Mass/Vol] 31.4 g/dL Normal 30.5-36.0 [facility] Comment on above: Order Comment: Speci men Type: BLOOD SPECIMENOrdering Facility: [facility] Address: [address] [place] [address] Performed By: #### 5 8410-2 ####[facility] LABORATORYCLIA [id number] [address] MCV (RBC) [Entitic vol] 90.3 fL Normal 80.0-100.0 [facility] Comment on above: Order Comment: Speci men Type: BLOOD SPECIMENOrdering Facility: [facility] Address: [address] [place] [address] Performed By: #### 5 8410-2 ####[facility] LABORATORYCLIA [id number] [address] Nucleated RBC (Bld) [#/Vol] 10*3/uL Normal <0.01 [facility] Comment on above: Order Comment: Speci men Type: BLOOD SPECIMENOrdering Facility: [facility] Address: [address] [place] [address] Performed By: #### 5 8410-2 ####[facility] LABORATORYCLIA [id number] [address] Platelet mean volume (Bld) [Entitic vol] 9.7 fL Normal 9.0-12.7 [facility] Comment on above: Order Comment: Speci men Type: BLOOD SPECIMENOrdering Facility: [facility] Address: [address] [place] [address] Performed By: #### 5 8410-2 ####[facility] LABORATORYCLIA [id number] [address] Platelets (Bld) [#/Vol] 306 10*3/uL Normal 150-400 [facility] Comment on above: Order Comment: Speci men Type: BLOOD SPECIMENOrdering Facility: [facility] Address: [address] [place] [address] Performed By: #### 5 8410-2 ####[facility] LABORATORYCLIA [id number] [address] [place] RBC (Bld) [#/Vol] 3.39 10*6/uL Low 4.20-6.00 [facility] Comment on above: Order Comment: Speci men Type: BLOOD SPECIMENOrdering Facility: [facility] Address: [address] [place] [address] Performed By: #### 5 8410-2 ####[facility] LABORATORYCLIA [id number] [address] WBC (Bld) [#/Vol] 9.81 10*3/uL Normal 3.70-11.00 [facility] Comment on above: Order Comment: Speci men Type: BLOOD SPECIMENOrdering Facility: [facility] Address: [address] [place] [address] Performed By: #### 5 8410-2 ####[facility] LABORATORYCLIA [id number] [address] [place] CONSULTon 07-10-2021 CONSULT Normal [facility] CONSULT Normal [facility] Magnesium SerPl-ncon 07-10 Magnesium [Mass/Vol] 1.9 mg/dL Normal 1.7-2.3 [facility] Comment on above: Order Comment: Speci men Type: BLOOD SPECIMENOrdering Facility: [facility] Address: [address] [place] [address] Performed By: #### 1 9123-9, 2777-1, 16484-5 ####[facility] LABORATORYCLIA [id number] [address] [place] NURSING PROGon 07-10-2021 NURSING PROG Normal [facility] NURSING PROG Normal [facility] NUTRITIONon 07-10-2021 NUTRITION Normal [facility] Phosphate SerPl-mCncon 07-10 Phosphate [Mass/Vol] 3.6 mg/dL Normal 2.7-4.8 [facility] Comment on above: Order Comment: Speci men Type: BLOOD SPECIMENOrdering Facility: [facility] Address: [address] [place] [address] Performed By: #### 1 9123-9, 2777-1, 66045-1 ####[facility] LABORATORYCLIA [id number] [address] [place] US DVT LOWER BILon US DVT LOWER RAINER Normal [facility] aPTT PPPon 07-10-2021 aPTT Coag (PPP) [Time] 28.8 s Normal 23.0-32.4 [facility] Comment on above: Order Comment: Speci men Type: BLOOD SPECIMENOrdering Facility: [facility] Address: [address] [place] [address] Performed By: #### 1 4979-9 ####[facility] LABORATORYCLIA [id number] [address] aPTT Coag (PPP) [Time] 28.4 s Normal 23.0-32.4 [facility] Comment on above: Order Comment: Speci men Type: BLOOD SPECIMENOrdering Facility: [facility] Address: [address] [place] [address] Performed By: #### 1 4979-9 ####[facility] LABORATORYCLIA [id number] [address] [place] ALLIED HEALTHon 07-09-2021 ALLIED HEALTH Normal [facility] Basic metabolic 2000 panelon 07-09-2021 Anion gap [Moles/Vol] 9 mmol/L Normal 9-18 [facility] Comment on above: Order Comment: Speci men Type: BLOOD SPECIMENOrdering Facility: [facility] Address: [address] [place] [address] Performed By: #### 1 9123-9, 2777-, 09151-5 ####[facility] LABORATORYCLIA [id number] [address] [facility] Calcium [Mass/Vol] 8.3 mg/dL Low 8.5-10.2 [facility] Comment on above: Order Comment: Speci men Type: BLOOD SPECIMENOrdering Facility: [facility] Address: [address] [place] [address] Performed By: #### 1 9123-9, 2777, 77811-0 ####[facility] LABORATORYCLIA [id number] [place] [address] [place] Chloride [Moles/Vol] 100 mmol/L Normal 97-105 [facility] Comment on above: Order Comment: Speci men Type: BLOOD SPECIMENOrdering Facility: [facility] Address: [address] [place] [address] Performed By: #### 1 9123-9, 2777-, 19034-4 ####[facility] [id number] [address] OF [facility] CO2 [Moles/Vol] 29 mmol/L Normal 22-30 [facility] Comment on above: Order Comment: Speci men Type: BLOOD SPECIMENOrdering Facility: [facility] Address: [address] [place] [address] Performed By: #### 1 9123-9, 2777, 05675-7 ####[facility]IA [id number] [address] Creatinine [Mass/Vol] 0.61 mg/dL Low 0.73-1.22 [facility] Comment on above: Order Comment: Speci men Type: BLOOD SPECIMENOrdering Facility: [facility] Address: [address] [place] [address] Performed By: #### 1 9123-9, 2777, 10227-7 ####[facility]IA [id number] [address] ESTIMATED GLOMERULAR FILTRATION RATE 104 mL/min/1.73m??? Normal >=60 [facility] Comment on above: Order Comment: Speci men Type: BLOOD SPECIMENOrdering Facility: [facility] Address: [address] [place] [address] Result Comment: Luzmaria mated Glomerular Filtration Rate [...] GFR. Performed By: #### 1 9123-9, 2777-, 24563-9 ####[facility]ORATORYCLIA [id number] [place] [address] [place] Glucose [Mass/Vol] 106 mg/dL High 74-99 [facility] Comment on above: Order Comment: Shira feldman Type: BLOOD SPECIMENOrdering Facility: [facility] Address: [address] [place], [place] [address] Result Comment: The [place] [employer] (ADA) provides guidance for cutoff [...] Standards of Medical Care in Diabetes 2016, [place] [employer]. Diabetes Care. 2016.39(Suppl 1). Performed By: #### 1 9123-9, 2777-, 89412-7 ####[facility]ORATORYCLIA [id number] [place] [address] [place] Potassium [Moles/Vol] 3.6 mmol/L Low 3.7-5.1 [facility] Comment on above: Order Comment: Shira feldman Type: BLOOD SPECIMENOrdering Facility: [facility] Address: [address] [place] [address] Performed By: #### 1 9123-9, 2777-, 69165-6 ####[facility]ORATORYCLIA [id number] [place] [address] [place] Sodium [Moles/Vol] 138 mmol/L Normal 136-144 [facility] Comment on above: Order Comment: Shira feldman Type: BLOOD SPECIMENOrdering Facility: [facility] Address: [address] [place] [address] Performed By: #### 1 9123-9, 2777-1, 97460-4 ####[facility]ORATORYCLIA [id number] [address] [facility] Urea nitrogen [Mass/Vol] 12 mg/dL Normal 9-24 [facility] Comment on above: Order Comment: Speci men Type: BLOOD SPECIMENOrdering Facility: [facility] Address: [address] [place] [address] Performed By: #### 1 9123-9, 2777-, 44817-6 ####[facility]ORATORYCLIA [id number] [address] CBC panel Auto (Bld)on 07-09 Erythrocyte distribution width (RBC) [Ratio] 16.2 % High 11.5-15.0 [facility] Comment on above: Order Comment: Speci men Type: BLOOD SPECIMENOrdering Facility: [facility] Address: [address] [place] [address] Performed By: #### 5 8410-2 ####[facility]ORATORYCLIA [id number] [address] [place] [facility] Hematocrit (Bld) [Volume fraction] 29.0 % Low 39.0-51.0 [facility] Comment on above: Order Comment: Speci men Type: BLOOD SPECIMENOrdering Facility: [facility] Address: [address] [place] [address] Performed By: #### 5 8410-2 ####[facility]ORATORYCLIA [id number] [address] [place] [facility] Hemoglobin (Bld) [Mass/Vol] 8.8 g/dL Low 13.0-17.0 [facility] Comment on above: Order Comment: Speci men Type: BLOOD SPECIMENOrdering Facility: [facility] Address: [address] [place] [address] Performed By: #### 5 8410-2 ####[facility]CLIA [id number] [address] MCH (RBC) [Entitic mass] 27.0 pg Normal 26.0-34.0 [facility] Comment on above: Order Comment: Speci men Type: BLOOD SPECIMENOrdering Facility: [facility] Address: [address] [place] [address] Performed By: #### 5 8410-2 ####[facility]ORATORYCLIA [id number] [address] MCHC (RBC) [Mass/Vol] 30.3 g/dL Low 30.5-36.0 [facility] Comment on above: Order Comment: Speci men Type: BLOOD SPECIMENOrdering Facility: [facility] Address: [address] [place] [address] Performed By: #### 5 8410-2 ####[facility]CLIA [id number] [address] MCV (RBC) [Entitic vol] 89.0 fL Normal 80.0-100.0 [facility] Comment on above: Order Comment: Speci men Type: BLOOD SPECIMENOrdering Facility: [facility] Address: [address] [place] [address] Performed By: #### 5 8410-2 ####[facility]ORATORYCLIA [id number] [address] Nucleated RBC (Bld) [#/Vol] 10*3/uL Normal <0.01 [facility] Comment on above: Order Comment: Speci men Type: BLOOD SPECIMENOrdering Facility: [facility] Address: [address] [place] [address] Performed By: #### 5 8410-2 ####[facility]ORATORYCLIA [id number] [address] Platelet mean volume (Bld) [Entitic vol] 9.8 fL Normal 9.0-12.7 [facility] Comment on above: Order Comment: Speci men Type: BLOOD SPECIMENOrdering Facility: [facility] Address: [address] [place] [address] Performed By: #### 5 8410-2 ####[facility]ORATORYCLIA [id number] [address] Platelets (Bld) [#/Vol] 281 10*3/uL Normal 150-400 [facility] Comment on above: Order Comment: Speci men Type: BLOOD SPECIMENOrdering Facility: [facility] Address: [address] [place] [address] Performed By: #### 5 8410-2 ####[facility]ORATORYCLIA [id number] [address] [place] [facility] RBC (Bld) [#/Vol] 3.26 10*6/uL Low 4.20-6.00 [facility] Comment on above: Order Comment: Speci men Type: BLOOD SPECIMENOrdering Facility: [facility] Address: [address] [place] [address] Performed By: #### 5 8410-2 ####[facility]ORATORYCLIA [id number] [address] WBC (Bld) [#/Vol] 9.12 10*3/uL Normal 3.70-11.00 [facility] Comment on above: Order Comment: Speci men Type: BLOOD SPECIMENOrdering Facility: [facility] Address: [address] [place] [address] Performed By: #### 5 8410-2 ####[facility]ORATORYCLIA [id number] [address] [facility] CONSULT PROGon 07-09-2021 CONSULT PROG Normal [facility] CONSULT PROG Normal [facility] HISTORY PHYSICALon HISTORY PHYSICAL Normal [facility] Magnesium SerPl-mCncon 07-09 Magnesium [Mass/Vol] 1.9 mg/dL Normal 1.7-2.3 [facility] Comment on above: Order Comment: Speci men Type: BLOOD SPECIMENOrdering Facility: [facility] Address: [address] [place] [address] Performed By: #### 1 9123-9, 2777-1, 74441-5 ####[facility]ATORYCLIA [id number] [address] [place] Phosphate SerPl-mCncon 07-09 Phosphate [Mass/Vol] 3.6 mg/dL Normal 2.7-4.8 [facility] Comment on above: Order Comment: Speci men Type: BLOOD SPECIMENOrdering Facility: [facility] Address: [address] [place] [address] Performed By: #### 1 9123-9, 2777-, 15907-1 ####[facility]ORATORYCLIA [id number] [address] [place] THERAPY NTon 07-09-2021 THERAPY NT Normal [facility] XR ABDOMEN 1V SUPINEon 07-09 XR ABDOMEN 1V SUPINE Normal [facility] ALLIED HEALTHon 07-08-2021 ALLIED HEALTH Normal [facility] ALLIED HEALTH Normal [facility] ALLIED HEALTH Normal [facility] ANES PRE-OPon 07-08-2021 ANES PRE-OP Normal [facility] BRIEF OP NOTon 07-08-2021 BRIEF OP NOT Normal [facility] Bacteria Bld Culton 07-09-19 22 Bacteria identified Cx Nom (Bld) CULTURE, BLOOD: No growth 5 days Normal [facility] Comment on above: Performed By: #### 6 00-7 ####[facility]ORATORYCLIA [id number] [address] [place] Bacteria identified Cx Nom (Bld) CULTURE, BLOOD: No growth 5 days Normal [facility] Comment on above: Performed By: #### 6 00-7 ####[facility]ORATORYCLIA [id number] [address] [place] Bacteria CSF Culton 07-09-19 22 Bacteria identified Cx Nom (CSF) CULTURE, CSF: No growth 14 days GRAM STAIN: No organisms seen No Polymorphonuclear Leukocytes Few Red Blood Cells Gram stain performed on cytospun specimen. Normal [facility] Comment on above: Performed By: #### 6 06-4 ####[facility]ORATORYCLIA [id number] [address] Bacteria Ur Culton 2 Bacteria identified Cx Nom (U) ORGANISM ID: 1 10,000 -<50,000 CFU/ml Proteus species Insignificant colony count. No further workup. ORGANISM ID: 2 <10,000 CFU/ml Normal urogenital chris Normal [facility] Comment on above: Performed By: #### 6 30-4 ####[facility]ATORYCLIA [id number] [address] Bacteria Wnd Culton 07-09-19 22 Bacteria identified Cx Nom (Wound) ORGANISM ID: 1 Coagulase negative staphylococcus Growth in Enrichment Broth Only No susceptibility testing done. Call lab within 72 hours to initiate work-up if clinically indicated. GRAM STAIN: Account credited. Not performed on this specimen type. Normal [facility] Comment on above: Performed By: #### 6 462-6 ####[facility]ORATORYCLIA [id number] [address] Bacteria identified Cx Nom (Wound) ORGANISM ID: 1 Rare Coagulase negative staphylococcus No susceptibility testing done. Call lab within 72 hours to initiate work-up if clinically indicated. GRAM STAIN: Account credited. Not performed on this specimen type. Normal [facility] Comment on above: Performed By: #### 6 462-6 ####[facility]ORATORYCLIA [id number] [address] Bacteria identified Cx Nom (Wound) CULTURE, INTRAOPERATIVE HARDWARE: No growth 14 days GRAM STAIN: Account credited. Not performed on this specimen type. [facility] Comment on above: Performed By: #### 6 462-6 ####[facility]ORATORYCLIA [id number] [address] Basic metabolic 2000 panelon 07-08-2021 Anion gap [Moles/Vol] 9 mmol/L Normal 9-18 [facility] Comment on above: Order Comment: Speci men Type: BLOOD SPECIMENOrdering Facility: [facility] Address: [address] [place] [address] Performed By: #### 2 4321-2 ####[facility]ATORYCLIA [id number] [place] [address] [place] Calcium [Mass/Vol] 8.5 mg/dL Normal 8.5-10.2 [facility] Comment on above: Order Comment: Speci men Type: BLOOD SPECIMENOrdering Facility: [facility] Address: [address] [place] [address] Performed By: #### 2 4321-2 ####[facility]ATORYCLIA [id number] [place] [address] [place] Chloride [Moles/Vol] 98 mmol/L Normal 97-105 [facility] Comment on above: Order Comment: Speci men Type: BLOOD SPECIMENOrdering Facility: [facility] Address: [address] [place] [address] Performed By: #### 2 4321-2 ####[facility]ATORYCLIA [id number] [place] [address] [place] CO2 [Moles/Vol] 31 mmol/L High 22-30 [facility] Comment on above: Order Comment: Speci men Type: BLOOD SPECIMENOrdering Facility: [facility] Address: [address] [place] [address] Performed By: #### 2 4321-2 ####[facility]ORATORYCLIA [id number] [place] [address] [place] Creatinine [Mass/Vol] 0.64 mg/dL Low 0.73-1.22 [facility] Comment on above: Order Comment: Speci men Type: BLOOD SPECIMENOrdering Facility: [facility] Address: [address] [place] [address] Performed By: #### 2 4321-2 ####[facility]ATORYCLIA [id number] [place] [address] [place] ESTIMATED GLOMERULAR FILTRATION RATE 102 mL/min/1.73m??? Normal >=60 [facility] Comment on above: Order Comment: Shira feldman Type: BLOOD SPECIMENOrdering Facility: [facility] Address: [address] [place] [address] Result Comment: Luzmaria mated Glomerular Filtration Rate [...] actual GFR. Performed By: #### 2 4321-2 ####[facility] LABORATORYIA [id number] [place] [address] [place] Glucose [Mass/Vol] 114 mg/dL High 74-99 [facility] Comment on above: Order Comment: Shira feldman Type: BLOOD SPECIMENOrdering Facility: [facility] Address: [address] [place] [address] Result Comment: The [place] Diabetes [employer] (ADA) provides guidance for cutoff [...] Standards of Medical Care in Diabetes 2016, [place] [employer]. Diabetes Care. 2016.39(Suppl 1). Performed By: #### 2 4321-2 ####[facility]ORATORYCLIA [id number] [place] [id number] [place] Potassium [Moles/Vol] 3.4 mmol/L Low 3.7-5.1 [facility] Comment on above: Order Comment: Speci men Type: BLOOD SPECIMENOrdering Facility: [facility] Address: [address] [place] [address] Performed By: #### 2 4321-2 ####[facility]ORATORYCLIA [id number] [address] [facility] Sodium [Moles/Vol] 138 mmol/L Normal 136-144 [facility] Comment on above: Order Comment: Speci men Type: BLOOD SPECIMENOrdering Facility: [facility] Address: [address] [place] [address] Performed By: #### 2 4321-2 ####[facility]ORATORYCLIA [id number] [address] [facility] Urea nitrogen [Mass/Vol] 14 mg/dL Normal 9-24 [facility] Comment on above: Order Comment: Speci men Type: BLOOD SPECIMENOrdering Facility: [facility] Address: [address] [place] [address] Performed By: #### 2 4321-2 ####[facility]ORATORYCLIA [id number] [address] [facility] CBC W Auto Differential pane l (Bld)on 07-08-2021 Basophils (Bld) [#/Vol] 0.05 10*3/uL Normal <0.11 [facility] Comment on above: Order Comment: Speci men Type: BLOOD SPECIMENOrdering Facility: [facility] Address: [address] [place] [address] Performed By: #### 5 7021-8 ####[facility]ORATORYCLIA [id number] [address] [facility] Basophils/100 WBC (Bld) 0.4 % Normal [facility] Comment on above: Order Comment: Speci men Type: BLOOD SPECIMENOrdering Facility: [facility] Address: [address] [place] [address] Performed By: #### 5 7021-8 ####[facility]ATORYCLIA [id number] [address] Differential cell count method Nom (Bld) Auto Normal [facility] Comment on above: Order Comment: Speci men Type: BLOOD SPECIMENOrdering Facility: [facility] Address: [address] [place] [address] Performed By: #### 5 7021-8 ####[facility]ORATORYCLIA [id number] [address] [place] Eosinophils (Bld) [#/Vol] 0.68 10*3/uL High <0.46 [facility] Comment on above: Order Comment: Speci men Type: BLOOD SPECIMENOrdering Facility: [facility] Address: [address] [place] [address] Performed By: #### 5 7021-8 ####[facility]ORATORYCLIA [id number] [address] Eosinophils/100 WBC (Bld) 5.4 % Normal [facility] Comment on above: Order Comment: Speci men Type: BLOOD SPECIMENOrdering Facility: [facility] Address: [address] [place] [address] Performed By: #### 5 7021-8 ####[facility]ATORYCLIA [id number] [address] Erythrocyte distribution width (RBC) [Ratio] 16.3 % High 11.5-15.0 [facility] Comment on above: Order Comment: Speci men Type: BLOOD SPECIMENOrdering Facility: [facility] Address: [address] [place] [address] Performed By: #### 5 7021-8 ####[facility]ORATORYCLIA [id number] [address] [place] Hematocrit (Bld) [Volume fraction] 35.7 % Low 39.0-51.0 [facility] Comment on above: Order Comment: Speci men Type: BLOOD SPECIMENOrdering Facility: [facility] Address: [address] [place] [address] Performed By: #### 5 7021-8 ####[facility]ATORYCLIA [id number] [address] [place] Hemoglobin (Bld) [Mass/Vol] 10.8 g/dL Low 13.0-17.0 [facility] Comment on above: Order Comment: Speci men Type: BLOOD SPECIMENOrdering Facility: [facility] Address: [address] [place] [address] Performed By: #### 5 7021-8 ####[facility]ORATORYCLIA [id number] [address] [facility] IMMATURE GRAN % 0.4 % Normal [facility] Comment on above: Order Comment: Speci men Type: BLOOD SPECIMENOrdering Facility: [facility] Address: [address] [place] [address] Performed By: #### 5 7021-8 ####[facility]ATORYCLIA [id number] [address] IMMATURE GRAN ABS 0.05 k/uL Normal <0.10 [facility] Comment on above: Order Comment: Speci men Type: BLOOD SPECIMENOrdering Facility: [facility] Address: [address] [place] [address] Performed By: #### 5 7021-8 ####[facility]ORATORYCLIA [id number] [address] [place] Lymphocytes (Bld) [#/Vol] 1.85 10*3/uL Normal 1.00-4.00 [facility] Comment on above: Order Comment: Speci men Type: BLOOD SPECIMENOrdering Facility: [facility] Address: [address] [place] [address] Performed By: #### 5 7021-8 ####[facility]ORATORYCLIA [id number] [address] Lymphocytes/100 WBC (Bld) 14.7 % Normal [facility] Comment on above: Order Comment: Speci men Type: BLOOD SPECIMENOrdering Facility: [facility] Address: [address] [place] [address] Performed By: #### 5 7021-8 ####[facility]ORATORYCLIA [id number] [address] MCH (RBC) [Entitic mass] 27.1 pg Normal 26.0-34.0 [facility] Comment on above: Order Comment: Speci men Type: BLOOD SPECIMENOrdering Facility: [facility] Address: [address] [place] [address] Performed By: #### 5 7021-8 ####[facility]ORATORYCLIA [id number] [address] [facility] MCHC (RBC) [Mass/Vol] 30.3 g/dL Low 30.5-36.0 [facility] Comment on above: Order Comment: Speci men Type: BLOOD SPECIMENOrdering Facility: [facility] Address: [address] [place] [address] Performed By: #### 5 7021-8 ####[facility]ORATORYCLIA [id number] [address] [facility] MCV (RBC) [Entitic vol] 89.7 fL Normal 80.0-100.0 [facility] Comment on above: Order Comment: Speci men Type: BLOOD SPECIMENOrdering Facility: [facility] Address: [address] [place] [address] Performed By: #### 5 7021-8 ####[facility]ORATORYCLIA [id number] [address] Monocytes (Bld) [#/Vol] 0.87 10*3/uL High <0.87 [facility] Comment on above: Order Comment: Speci men Type: BLOOD SPECIMENOrdering Facility: [facility] Address: [address] [place] [address] Performed By: #### 5 7021-8 ####[facility]ORATORYCLIA [id number] [address] Monocytes/100 WBC (Bld) 6.9 % Normal [facility] Comment on above: Order Comment: Speci men Type: BLOOD SPECIMENOrdering Facility: [facility] Address: [address] [place] [address] Performed By: #### 5 7021-8 ####[facility] LABORATORYCLIA [id number] [address] [place] Neutrophils (Bld) [#/Vol] 9.05 10*3/uL High 1.45-7.50 [facility] Comment on above: Order Comment: Speci men Type: BLOOD SPECIMENOrdering Facility: [facility] Address: [address] [place] [address] Performed By: #### 5 7021-8 ####[facility]ATORYCLIA [id number] [address] [place] Neutrophils/100 WBC (Bld) 72.2 % Normal [facility] Comment on above: Order Comment: Speci men Type: BLOOD SPECIMENOrdering Facility: [facility] Address: [address] [place] [address] Performed By: #### 5 7021-8 ####[facility]ORATORYCLIA [id number] [address] [place] Nucleated RBC (Bld) [#/Vol] 10*3/uL Normal <0.01 [facility] Comment on above: Order Comment: Speci men Type: BLOOD SPECIMENOrdering Facility: [facility] Address: [address] [place] [address] Performed By: #### 5 7021-8 ####[facility]ORATORYCLIA [id number] [address] [place] Nucleated RBC/100 WBC (Bld) [Ratio] 0.0 /100 WBC Normal [facility] Comment on above: Order Comment: Speci men Type: BLOOD SPECIMENOrdering Facility: [facility] Address: [address] [place] [address] Performed By: #### 5 7021-8 ####[facility]ORATORYCLIA [id number] [address] [facility] Platelet mean volume (Bld) [Entitic vol] 9.9 fL Normal 9.0-12.7 [facility] Comment on above: Order Comment: Speci men Type: BLOOD SPECIMENOrdering Facility: [facility] Address: [address] [place] [address] Performed By: #### 5 7021-8 ####[facility]ORATORYCLIA [id number] [address] [place] Platelets (Bld) [#/Vol] 335 10*3/uL Normal 150-400 [facility] Comment on above: Order Comment: Speci men Type: BLOOD SPECIMENOrdering Facility: [facility] Address: [address] [place] [address] Performed By: #### 5 7021-8 ####[facility] LABORATORYCLIA [id number] [address] [place] RBC (Bld) [#/Vol] 3.98 10*6/uL Low 4.20-6.00 [facility] Comment on above: Order Comment: Speci men Type: BLOOD SPECIMENOrdering Facility: [facility] Address: [address] [place] [address] Performed By: #### 5 7021-8 ####[facility] LABORATORYCLIA [id number] [address] [place] WBC (Bld) [#/Vol] 12.55 10*3/uL High 3.70-11.00 [facility] Comment on above: Order Comment: Speci men Type: BLOOD SPECIMENOrdering Facility: [facility] Address: [address] [place] [address] Performed By: #### 5 7021-8 ####[facility] LABORATORYCLIA [id number] [address] [place] CK CREATINE KINASEon 022 CK [Catalytic activity/Vol] 72 U/L Normal 51-298 [facility] Comment on above: Order Comment: Speci men Type: BLOOD SPECIMENOrdering Facility: [facility] Address: [address] [place] [address] Performed By: #### C Skip, 26260-1 ####[facility] LABORATORYCLIA [id number] [address] [place] CONSULT PROGon 07-08-2021 CONSULT PROG Normal [facility] CONSULT PROG Normal [facility] CSF MANUAL DIFFon 07-08-2021 DIF TTL, CSF 3 cells counted Normal [facility] Comment on above: Order Comment: Speci men Type: CEREBROSPINAL FLUIDOrdering Facility: [facility] Address: [address] [place] [address] Performed By: #### 3 4563-7, [id number] ####[facility]ORATORYCLIA [id number] [place] [address] [place] LYMPH%, CSF 33 % Low 50-90 [facility] Comment on above: Order Comment: Speci men Type: CEREBROSPINAL FLUIDOrdering Facility: [facility] Address: [address] [place] [address] Performed By: #### 3 4563-7, [id number] ####[facility]ORATORYCLIA [id number] [place] [address] [place] MONO%, CSF 67 % High 10-50 [facility] Comment on above: Order Comment: Speci men Type: CEREBROSPINAL FLUIDOrdering Facility: [facility] Address: [address] [place] [address] Performed By: #### 3 4563-7, [id number] ####[facility]ATORYCLIA [id number] [place] [address] [place] ABD/PEL W IVCONon 022 CT ABD/PEL W IVCON Normal [facility] CT BRAIN WO IVCONon 07-09-[address] BRAIN WO IVCON Normal [facility] CT BRAIN WO IVCON Normal [facility] CT CHEST W IVCON PEon 2021 CT CHEST W IVCON PE Normal [facility] Cell count panel (CSF)on Clarity (CSF) Clear Normal Clear [facility] Comment on above: Order Comment: Speci men Type: CEREBROSPINAL FLUIDOrdering Facility: [facility] Address: [address] [address] Performed By: #### 3 4563-7, [id number] ####[facility] LABORATORYCLIA [id number] [address] Clarity (Unsp spec) Clear Normal Clear [facility] Comment on above: Order Comment: Speci men Type: CEREBROSPINAL FLUIDOrdering Facility: [facility] Address: [address] [address] Performed By: #### 3 4563-7, [id number] ####[facility]ORATORYCLIA [id number] [address] Color (CSF) Colorless Normal Colorless [facility] Comment on above: Order Comment: Speci men Type: CEREBROSPINAL FLUIDOrdering Facility: [facility] Address: [address] [address] Performed By: #### 3 4563-7, [id number] ####[facility]ATORYCLIA [id number] [address] Color (Spun CSF) Colorless Normal Colorless [facility] Comment on above: Order Comment: Speci men Type: CEREBROSPINAL FLUIDOrdering Facility: [facility] Address: [address] [address] Performed By: #### 3 4563-7, [id number] ####[facility]ORATORYCLIA [id number] [address] CSF TU[employer] Normal [facility] Comment on above: Order Comment: Speci men Type: CEREBROSPINAL FLUIDOrdering Facility: [facility] Address: [address] [address] Performed By: #### 3 4563-7, [id number] ####[facility]ATORYCLIA [id number] [address] RBC Manual cnt (CSF) [#/Vol] 94 cells/uL High 0-5 [facility] Comment on above: Order Comment: Speci men Type: CEREBROSPINAL FLUIDOrdering Facility: [facility] Address: [address] [place] [address] Performed By: #### 3 4563-7, [id number] ####[facility]ORATORYCLIA [id number] [address] WBC Manual cnt (CSF) [#/Vol] 1 cells/uL Normal 0-5 [facility] Comment on above: Order Comment: Speci men Type: CEREBROSPINAL FLUIDOrdering Facility: [facility] Address: [address] [place] [address] Performed By: #### 3 4563-7, [id number] ####[facility]ORATORYCLIA [id number] [address] Comprehensive metabolic 2000 panelon 07-08-2021 Albumin [Mass/Vol] 3.6 g/dL Low 3.9-4.9 [facility] Comment on above: Order Comment: Speci men Type: BLOOD SPECIMENOrdering Facility: [facility] Address: [address] [place] [address] Performed By: #### Eileen Valdivia, 56052-4 ####[facility]ORATORYCLIA [id number] [address] ALP [Catalytic activity/Vol] 125 U/L High 38-113 [facility] Comment on above: Order Comment: Speci men Type: BLOOD SPECIMENOrdering Facility: [facility] Address: [address] [place] [address] Performed By: #### Eileen Valdivia, 47472-8 ####[facility]ORATORYCLIA [id number] [address] ALT With P-5'-P [Catalytic activity/Vol] 24 U/L Normal 10-54 [facility] Comment on above: Order Comment: Speci men Type: BLOOD SPECIMENOrdering Facility: [facility] Address: [address] [address] Performed By: #### Eileen Valdivia, 42883-7 ####[facility]ORATORYCLIA [id number] [place] [address] [place] Anion gap [Moles/Vol] 16 mmol/L Normal 9-18 [facility] Comment on above: Order Comment: Speci men Type: BLOOD SPECIMENOrdering Facility: [facility] Address: [address] [place] [address] Performed By: #### Eileen Valdivia, 34526-7 ####[facility]ORATORYCLIA [id number] [place] [address] [place] AST With P-5'-P [Catalytic activity/Vol] 21 U/L Normal 14-40 [facility] Comment on above: Order Comment: Speci men Type: BLOOD SPECIMENOrdering Facility: [facility] Address: [address] [place] [address] Performed By: #### Eileen Valdivia, 34639-4 ####[facility]ORATORYCLIA [id number] [place] [address] [place] Bilirubin [Mass/Vol] 0.3 mg/dL Normal 0.2-1.3 [facility] Comment on above: Order Comment: Speci men Type: BLOOD SPECIMENOrdering Facility: [facility] Address: [address] [place] [address] Performed By: #### Eileen Valdivia, 32430-0 ####[facility]ORATORYCLIA [id number] [place] [address] [place] Calcium [Mass/Vol] 8.9 mg/dL Normal 8.5-10.2 [facility] Comment on above: Order Comment: Speci men Type: BLOOD SPECIMENOrdering Facility: [facility] Address: [address] [place] [address] Performed By: #### Eileen Valdivia, 69716-2 ####[facility]ORATORYCLIA [id number] [place] [address] [place] Chloride [Moles/Vol] 96 mmol/L Low 97-105 [facility] Comment on above: Order Comment: Speci men Type: BLOOD SPECIMENOrdering Facility: [facility] Address: [address] [place] [address] Performed By: #### Eileen Valdivia, 54952-8 ####[facility]ORATORYCLIA [id number] [address] CO2 [Moles/Vol] 27 mmol/L Normal 22-30 [facility] Comment on above: Order Comment: Speci men Type: BLOOD SPECIMENOrdering Facility: [facility] Address: [address] [place] [address] Performed By: #### Eileen Valdivia, 26656-9 ####[facility]ORATORYCLIA [id number] [address] Creatinine [Mass/Vol] 0.68 mg/dL Low 0.73-1.22 [facility] Comment on above: Order Comment: Speci men Type: BLOOD SPECIMENOrdering Facility: [facility] Address: [address] [place] [address] Performed By: #### Eileen Valdivia, 58062-5 ####[facility]ORATORYCLIA [id number] [address] ESTIMATED GLOMERULAR FILTRATION RATE 101 mL/min/1.73m??? Normal >=60 [facility] Comment on above: Order Comment: Speci men Type: BLOOD SPECIMENOrdering Facility: [facility] Address: [address] [place] [address] Result Comment: Luzmaria mated Glomerular Filtration Rate [...] actual GFR. Performed By: #### Eileen Valdivia, 87367-1 ####[facility]ORATORYCLIA [id number] [place] [address] [place] Glucose [Mass/Vol] 130 mg/dL High 74-99 [facility] Comment on above: Order Comment: Shira feldman Type: BLOOD SPECIMENOrdering Facility: [facility] Address: [address] [place] [address] Result Comment: The [place] Diabetes Association (ADA) provides guidance for cutoff [...] Standards of Medical Care in Diabetes 2016, [place] [employer]. Diabetes Care. 2016.39(Suppl 1). Performed By: #### Eileen Valdivia, 19618-6 ####[facility]ORATORYCLIA [id number] [place] [address] [place] Potassium [Moles/Vol] 3.9 mmol/L Normal 3.7-5.1 [facility] Comment on above: Order Comment: Shira feldman Type: BLOOD SPECIMENOrdering Facility: [facility] Address: [address] [place] [address] Performed By: #### Eileen Valdivia, 81217-7 ####[facility]ORATORYCLIA [id number] [place] [address] [place] Protein [Mass/Vol] 7.0 g/dL Normal 6.3-8.0 [facility] Comment on above: Order Comment: Shira feldman Type: BLOOD SPECIMENOrdering Facility: [facility] Address: [address] [place] [address] Performed By: #### Eileen Valdivia, 12070-5 ####[facility]ATORYCLIA [id number] [place] [address] [place] Sodium [Moles/Vol] 139 mmol/L Normal 136-144 [facility] Comment on above: Order Comment: Speci men Type: BLOOD SPECIMENOrdering Facility: [facility] Address: [address] [place] [address] Performed By: #### Eileen Valdivia, 85451-7 ####[facility]ORATORYCLIA [id number] [address] Urea nitrogen [Mass/Vol] 16 mg/dL Normal 9-24 [facility] Comment on above: Order Comment: Speci men Type: BLOOD SPECIMENOrdering Facility: [facility] Address: [address] [place] [address] Performed By: #### Eileen Valdivia, 60002-2 ####[facility]ATORYCLIA [id number] [address] ED NOTEon 07-08-2021 ED NOTE HNO ID: [id number] Author: Lenora James RN Service: Emergency Medicine Author Type: Registered Nurse Type: ED Notes Filed: 07/08/2021 5:03 PM Note Text: Pt to OR with surgical team [facility] ED NOTE HNO ID: [id number] Author: Lenora James RN Service: Emergency Medicine Author Type: Registered Nurse Type: ED Notes Filed: 07/08/2021 4:50 PM Note Text: OR team to get pt [facility] ED NOTE HNO ID: [id number] Author: Lenora James RN Service: Emergency Medicine Author Type: Registered Nurse Type: ED Notes Filed: 07/08/2021 4:50 PM Note Text: Normal [facility] ED NOTE HNO ID: [id number] Author: Lenora James RN Service: Emergency Medicine Author Type: Registered Nurse Type: ED Notes Filed: 07/08/2021 4:50 PM Note Text: Spoke with presurg; pt to go to OR now [facility] ED NOTE HNO ID: [id number] Author: Lenora James RN Service: Emergency Medicine Author Type: Registered Nurse Type: ED Notes Filed: 07/08/2021 4:12 PM Note Text: Neurosurgery at beside [facility] ED NOTE HNO ID: [id number] Author: Lenora James RN Service: Emergency Medicine Author Type: Registered Nurse Type: ED Notes Filed: 07/08/2021 2:35 PM Note Text: respiratory aware of pt breathing treatments Normal [facility] ED NOTE HNO ID: [id number] Author: Lisa Woo RN Service: ? Author Type: Registered Nurse Type: ED Notes Filed: 07/08/2021 2:20 PM Note Text: Xray notified pt is ready. Normal [facility] ED NOTE HNO ID: [id number] Author: Lenora James RN Service: Emergency Medicine Author Type: Registered Nurse Type: ED Notes Filed: 07/08/2021 12:14 PM Note Text: CT notified regarding imaging orders placed Normal [facility] ED NOTE Normal [facility] ED PROV NOTEon 07-08-2021 ED PROV NOTE Normal [facility] Glucose CSF-mCncon Glucose (CSF) [Mass/Vol] 88 mg/dL High 40-70 [facility] Comment on above: Order Comment: Shira feldman Type: CEREBROSPINAL FLUIDOrdering Facility: [facility] Address: [address] [place], [place] [address] Result Comment: Lumb ar CSF glucose values of healthy patients are approximately 60% of the plasma values and must always be compared with a concurrently measured plasma value for adequate clinical interpretation.References: 1. Glucose HK (GLUC3) [package insert V 12.0 [place]]. [employer], [place], [place]. September 2015. 2. Michelle Moore, Loki, H. (2015). Chapter 7: Glucose and Lactate. FGarfield Alcocer al.(eds.), Cerebrospinal Fluid in Clinical Neurology. [place]: [employer]. Performed By: #### 2 880-3, 2342-4 ####[facility]ORATORYCLIA [id number] [place] [address] [place] HIGH SENSITIVITY TROPONIN To n 07-08-2021 HIGH SENSITIVITY TAMIKO 27 ng/L High <12 [facility] Comment on above: Order Comment: Shira feldman Type: BLOOD SPECIMENOrdering Facility: [facility] Address: [address] [place] [address] Result Comment: When assessing risk for acute [...] day MACE. Performed By: #### H STNT ####[facility]ORATORYCLIA [id number] [address] STATES OF [facility] HIGH SENSITIVITY TAMIKO 36 ng/L High <12 [facility] Comment on above: Order Comment: Speci men Type: BLOOD SPECIMENOrdering Facility: [facility] Address: [address] [place] [address] Result Comment: When assessing risk for acute [...] day MACE. Performed By: #### H STNT ####[facility]ORATORYCLIA [id number] [address] [place] HISTORY PHYSICALon HISTORY PHYSICAL Normal [facility] NURSING PROGon 07-08-2021 NURSING PROG Normal [facility] OPERATIVE NOon 07-08-2021 OPERATIVE NO Normal [facility] Prot CSF-mCncon 07-08-2021 Protein (CSF) [Mass/Vol] 33 mg/dL Normal 15-45 [facility] Comment on above: Order Comment: Speci men Type: CEREBROSPINAL FLUIDOrdering Facility: [facility] Address: [address] [place] [address] Performed By: #### 2 880-3, 2342-4 ####[facility]ORATORYCLIA [id number] [place] [address] [place] SARS-CoV-2 RNA Resp Ql MEGAN+p robeon 07-08-2021 SARS-CoV-2 (COVID-19) RNA MEGAN+probe Ql (Resp) COVID 19 RESULT: SARS-CoV-2 (Agent of COVID-19) Not Detected by RT-PCR or equivalent method. This test has been authorized by FDA under an Emergency Use Authorization (EUA). Normal [facility] Comment on above: Performed By: #### 9 4500-6 ####[facility]ORATORYCLIA [id number] [address] STAPH AUREUS PCRon 2 S. aureus and MRSA panel MEGAN+probe (Nose) Normal Negative [facility] Comment on above: Order Comment: Speci men Type: SWAB OF INTERNAL NOSEOrdering Facility: [facility] Address: [address] [place] [address] Result Comment: Nega tive for Staphylococcus aureus by PCR.Negative for MRSA by PCR Performed By: #### S APCR ####[facility]GIA [id number] [address] Urinalysis complete panel (U )on 07-08-2021 Bacteria LM.HPF (Urine sed) [#/Area] Few Abnormal None Seen [facility] Comment on above: Order Comment: Speci men Type: URINE SPECIMENOrdering Facility: [facility] Address: [address] [place] [address] Performed By: #### 2 4356-8 ####[facility]ORATORYCLIA [id number] [place] [address] [place] Bilirubin Ql (U) Negative Normal Negative [facility] Comment on above: Order Comment: Speci men Type: URINE SPECIMENOrdering Facility: [facility] Address: [address] [place] [address] Performed By: #### 2 4356-8 ####[facility]ORATORYCLIA [id number] [address] STATES [facility] Clarity (Unsp spec) Turbid Abnormal Clear [facility] Comment on above: Order Comment: Speci men Type: URINE SPECIMENOrdering Facility: [facility] Address: [address] [place] [address] Performed By: #### 2 4356-8 ####[facility]ORATORYCLIA [id number] [address] Color (U) Light Yellow Normal yellow [facility] Comment on above: Order Comment: Speci men Type: URINE SPECIMENOrdering Facility: [facility] Address: [address] [place] [address] Performed By: #### 2 4356-8 ####[facility]ATORYCLIA [id number] [address] Glucose Test strip (U) [Mass/Vol] Negative Normal Negative [facility] Comment on above: Order Comment: Speci men Type: URINE SPECIMENOrdering Facility: [facility] Address: [address] [place] [address] Performed By: #### 2 4356-8 ####[facility]ATORYCLIA [id number] [address] [place] [facility] Hemoglobin Ql (U) Negative Normal Negative [facility] Comment on above: Order Comment: Speci men Type: URINE SPECIMENOrdering Facility: [facility] Address: [address] [place] [address] Performed By: #### 2 4356-8 ####[facility]ATORYCLIA [id number] [address] Hyaline casts (Urine sed) [#/Area] 1-3 /LPF Abnormal 0 /LPF [facility] Comment on above: Order Comment: Speci men Type: URINE SPECIMENOrdering Facility: [facility] Address: [address] [place] [address] Performed By: #### 2 4356-8 ####[facility]ATORYCLIA [id number] [address] Ketones Ql (U) Negative Normal Negative [facility] Comment on above: Order Comment: Speci men Type: URINE SPECIMENOrdering Facility: [facility] Address: [address] [place] [address] Performed By: #### 2 4356-8 ####[facility]ATORYCLIA [id number] [address] Leukocyte esterase Test strip Ql (U) Negative Normal Negative [facility] Comment on above: Order Comment: Speci men Type: URINE SPECIMENOrdering Facility: [facility] Address: [address] [place] [address] Performed By: #### 2 4356-8 ####[facility]ATORYCLIA [id number] [address] [place] [facility] Nitrite Ql (U) Negative Normal Negative [facility] Comment on above: Order Comment: Speci men Type: URINE SPECIMENOrdering Facility: [facility] Address: [address] [place] [address] Performed By: #### 2 4356-8 ####[facility]ATORYCLIA [id number] [address] [place] pH (U) 5.0 [pH] Normal 5.0-8.0 [facility] Comment on above: Order Comment: Speci men Type: URINE SPECIMENOrdering Facility: [facility] Address: [address] [place] [address] Performed By: #### 2 4356-8 ####[facility]ATORYCLIA [id number] [address] Protein (U) [Mass/Vol] Negative Normal Negative [facility] Comment on above: Order Comment: Speci men Type: URINE SPECIMENOrdering Facility: [facility] Address: [address] [place] [address] Performed By: #### 2 4356-8 ####[facility]ORATORYCLIA [id number] [address] RBC LM.HPF (Urine sed) [#/Area] 11-25 /HPF Abnormal 0-3 /HPF [facility] Comment on above: Order Comment: Speci men Type: URINE SPECIMENOrdering Facility: [facility] Address: [address] [address] Performed By: #### 2 4356-8 ####[facility]ORATORYCLIA [id number] [address] Specific gravity (U) [Rel density] 1.018 Normal 1.005-1.030 [facility] Comment on above: Order Comment: Speci men Type: URINE SPECIMENOrdering Facility: [facility] Address: [address] [place] [address] Performed By: #### 2 4356-8 ####[facility]ORATORYCLIA [id number] [address] Urobilinogen Ql (U) Normal Normal Negative [facility] Comment on above: Order Comment: Speci men Type: URINE SPECIMENOrdering Facility: [facility] Address: [address] [place] [address] Performed By: #### 2 4356-8 ####[facility]ORATORYCLIA [id number] [address] [place] WBC LM.HPF (Urine sed) [#/Area] /[HPF] Abnormal 0-5 /HPF [facility] Comment on above: Order Comment: Speci men Type: URINE SPECIMENOrdering Facility: [facility] Address: [address] [place] [address] Performed By: #### 2 4356-8 ####[facility]ORATORYCLIA [id number] [address] [place] Vancomycin random [Mass/Vol] on 07-08-2021 Vancomycin [Mass/Vol] 31.0 ug/mL High 10.0-20.0 [facility] Comment on above: Order Comment: Speci men Type: BLOOD SPECIMENOrdering Facility: [facility] Address: [address] [place] [address] Result Comment: Refe rence ranges and high/low indicator flags are provided as general guidelines only. The treating physician must determine appropriate target levels/dosing based on the specific clinical situation. Performed By: #### 4 091-5 ####[facility]ORATORYCLIA [id number] [place] [address] [place] [facility] XR ABD 2V SUPINE W UPR/DECUB /CTLon 07-08-2021 XR ABD 2V SUPINE W UPR/DECUB/CTL Normal [facility] XR CHEST 1V FRONTALon 2021 XR CHEST 1V FRONTAL Normal [facility] XR CHEST 1V FRONTAL Normal [facility] XR NECK SOFT TISSUE 2V AP/LA Ton 07-08-2021 XR NECK SOFT TISSUE 2V AP/LAT Normal [facility] XR SKULL 2V AP/LATon 022 XR SKULL 2V AP/LAT Normal [facility] [facility] HISTORY PHYSICALon HISTORY PHYSICAL HNO ID: [id number] Author: Amy Beltran MD Service: ? Author Type: Physician Type: HANDP Filed: 06/30/2021 6:42 PM Note Text: Connected Care Unit History and Physical Facility: [facility] Level of Care: Skilled Admission Date: June [...] regarding the above plan. Total time spent head-lo-iods and/or counseling and coordinating care on the skilled care unit for patient was approximately 45 minutes SUBJECTIVE (HISTORY) Chief Complaint: Confusion, infection, blood clot. Andrew Sifuentes is being seen today [facility] admission AND management of weakness, tube feed, infected retroperitoneal infection and seizure. HPI: This is a 71 year old male who presents from [facility] with primary admitting diagnosis of Seizure, [...] CT brain concerning for hydrocephalus. Tip of DRILL OPERATOR PNEUMATIC shunt was found to be in the [...] Code Status: (more content not included)... Normal [facility] Basic metabolic 2000 panelon 06-28-2021 Anion gap [Moles/Vol] 7 mmol/L Low 9-18 [facility] Comment on above: Order Comment: Shira feldman Type: BLOOD SPECIMENOrdering Facility: [facility] Address: [address] [phone] Performed By: #### 2 4321-2, 50689-5 ####[facility] LABORATORYCLIA [id number] [place] [address] [place] Calcium [Mass/Vol] 8.8 mg/dL Normal 8.5-10.2 [facility] Comment on above: Order Comment: Shiar feldman Type: BLOOD SPECIMENOrdering Facility: [facility] Address: [address] [phone] Performed By: #### 2 4321-2, ####[facility] LABORATORYCLIA [id number] [address] [place] Chloride [Moles/Vol] 103 mmol/L Normal 97-105 [facility] Comment on above: Order Comment: Speci men Type: BLOOD SPECIMENOrdering Facility: [facility] Address: [address] [place] [address] Performed By: #### 2 432-2, ####[facility] LABORATORYCLIA [id number] [place] [address] [place] CO2 [Moles/Vol] 28 mmol/L Normal 22-30 [facility] Comment on above: Order Comment: Speci men Type: BLOOD SPECIMENOrdering Facility: [facility] Address: [address] [place] [address] Performed By: #### 2 4322, ####[facility] LABORATORYCLIA [id number] [address] [place] Creatinine [Mass/Vol] 0.57 mg/dL Low 0.73-1.22 [facility] Comment on above: Order Comment: Speci men Type: BLOOD SPECIMENOrdering Facility: [facility] Address: [address] [place] [address] Performed By: #### 2 432-2, ####[facility] LABORATORYCLIA [id number] [place] [address] [place] GFR/1.73 sq M.predicted MDRD (S/P/Bld) [Vol rate/Area] mL/min/{1.73_m2} Normal [facility] Comment on above: Order Comment: Speci men Type: BLOOD SPECIMENOrdering Facility: [facility] Address: [address] [place] [address] Result Comment: >60e GFR (Estimated GFR) Units [...] actual GFR. Performed By: #### 2 43205-08, ####[facility] LABORATORYCLIA [id number] [place] [address] [place] Glucose [Mass/Vol] 120 mg/dL High 74-99 [facility] Comment on above: Order Comment: Shira feldman Type: BLOOD SPECIMENOrdering Facility: [facility] Address: [address] [place] [address] Result Comment: The [place] Diabetes [employer] (ADA) provides guidance for cutoff [...] Standards of Medical Care in Diabetes 2016, [place] [employer]. Diabetes Care. 2016.39(Suppl 1). Performed By: #### 2 4320-06, ####[facility] LABORATORYCLIA [id number] [place] [address] [place] Potassium [Moles/Vol] 3.8 mmol/L Normal 3.7-5.1 [facility] Comment on above: Order Comment: Shira feldman Type: BLOOD SPECIMENOrdering Facility: [facility] Address: [address] [phone] Performed By: #### 2 4320-06, ####[facility] LABORATORYCLIA [id number] [place] [address] [place] Sodium [Moles/Vol] 138 mmol/L Normal 136-144 [facility] Comment on above: Order Comment: Speci men Type: BLOOD SPECIMENOrdering Facility: [facility] Address: [address] [place] [address] Performed By: #### 2 4321-2, ####[facility] LABORATORYCLIA [id number] [address] STATES [facility] Urea nitrogen [Mass/Vol] 24 mg/dL Normal 9-24 [facility] Comment on above: Order Comment: Speci men Type: BLOOD SPECIMENOrdering Facility: [facility] Address: [address] [place] [address] Performed By: #### 2 432-2, ####[facility] LABORATORYCLIA [id number] [address] CASE MANAGEMon 06-28-2021 CASE MANAGEM Normal [facility] CBC panel Auto (Bld)on 06-28 Erythrocyte distribution width (RBC) [Ratio] 15.6 % High 11.5-15.0 [facility] Comment on above: Order Comment: Speci men Type: BLOOD SPECIMENOrdering Facility: [facility] Address: [address] [place] [address] Performed By: #### 5 8410-2 ####[facility] LABORATORYCLIA [id number] [address] STATES OF [facility] Hematocrit (Bld) [Volume fraction] 30.5 % Low 39.0-51.0 [facility] Comment on above: Order Comment: Speci men Type: BLOOD SPECIMENOrdering Facility: [facility] Address: [address] [place] [address] Performed By: #### 5 8410-2 ####[facility] LABORATORYCLIA [id number] [address] [place] Hemoglobin (Bld) [Mass/Vol] 9.4 g/dL Low 13.0-17.0 [facility] Comment on above: Order Comment: Speci men Type: BLOOD SPECIMENOrdering Facility: [facility] Address: [address] [place] [address] Performed By: #### 5 8410-2 ####[facility] LABORATORYCLIA [id number] [address] MCH (RBC) [Entitic mass] 27.8 pg Normal 26.0-34.0 [facility] Comment on above: Order Comment: Speci men Type: BLOOD SPECIMENOrdering Facility: [facility] Address: [address] [place] [address] Performed By: #### 5 8410-2 ####[facility] LABORATORYCLIA [id number] [address] MCHC (RBC) [Mass/Vol] 30.8 g/dL Normal 30.5-36.0 [facility] Comment on above: Order Comment: Speci men Type: BLOOD SPECIMENOrdering Facility: [facility] Address: [address] [place] [address] Performed By: #### 5 8410-2 ####[facility] LABORATORYCLIA [id number] [address] MCV (RBC) [Entitic vol] 90.2 fL Normal 80.0-100.0 [facility] Comment on above: Order Comment: Speci men Type: BLOOD SPECIMENOrdering Facility: [facility] Address: [address] [place] [address] Performed By: #### 5 8410-2 ####[facility] LABORATORYCLIA [id number] [address] Nucleated RBC (Bld) [#/Vol] 10*3/uL Normal <0.01 [facility] Comment on above: Order Comment: Speci men Type: BLOOD SPECIMENOrdering Facility: [facility] Address: [address] [place] [address] Performed By: #### 5 8410-2 ####[facility] LABORATORYCLIA [id number] [place] [address] [place] Platelet mean volume (Bld) [Entitic vol] 9.9 fL Normal 9.0-12.7 [facility] Comment on above: Order Comment: Speci men Type: BLOOD SPECIMENOrdering Facility: [facility] Address: [address] [place] [address] Performed By: #### 5 8410-2 ####[facility] LABORATORYCLIA [id number] [address] [place] Platelets (Bld) [#/Vol] 333 10*3/uL Normal 150-400 [facility] Comment on above: Order Comment: Speci men Type: BLOOD SPECIMENOrdering Facility: [facility] Address: [address] [place] [address] Performed By: #### 5 8410-2 ####[facility] LABORATORYCLIA [id number] [address] [place] [facility] RBC (Bld) [#/Vol] 3.38 10*6/uL Low 4.20-6.00 [facility] Comment on above: Order Comment: Speci men Type: BLOOD SPECIMENOrdering Facility: [facility] Address: [address] [place] [address] Performed By: #### 5 8410-2 ####[facility] LABORATORYCLIA [id number] [address] [place] [facility] WBC (Bld) [#/Vol] 9.71 10*3/uL Normal 3.70-11.00 [facility] Comment on above: Order Comment: Speci men Type: BLOOD SPECIMENOrdering Facility: [facility] Address: [address] [place] [address] Performed By: #### 5 8410-2 ####[facility] LABORATORYCLIA [id number] [address] [place] CNDSon 06-28-2021 CNDS Normal [facility] CONSULT PROGon 06-28-2021 CONSULT PROG Normal [facility] Magnesium SerPl-mCncon 06-28 Magnesium [Mass/Vol] 2.2 mg/dL Normal 1.7-2.3 [facility] Comment on above: Order Comment: Speci men Type: BLOOD SPECIMENOrdering Facility: [facility] Address: [address] [place] [address] Performed By: #### 2 432-2, ####[facility] LABORATORYCLIA [id number] [address] OF [facility] Vancomycin random [Mass/Vol] on 06-28-2021 Vancomycin [Mass/Vol] 23.0 ug/mL High 10.0-20.0 [facility] Comment on above: Order Comment: Speci men Type: BLOOD SPECIMENOrdering Facility: [facility] Address: [address] [place] [address] Result Comment: Refe rence ranges and high/low indicator flags are provided as general guidelines only. The treating physician must determine appropriate target levels/dosing based on the specific clinical situation. Performed By: #### 4 091-5 ####[facility] LABORATORYCLIA [id number] [address] [place] ALLIED HEALTHon 06-27-2021 ALLIED HEALTH Normal [facility] Basic metabolic 2000 panelon 06-27-2021 Anion gap [Moles/Vol] 10 mmol/L Normal 9-18 [facility] Comment on above: Order Comment: Speci men Type: BLOOD SPECIMENOrdering Facility: [facility] Address: [address] [place] [address] Performed By: #### 2 4320-06, ####[facility] LABORATORYCLIA [id number] [address] [place] [facility] Calcium [Mass/Vol] 8.8 mg/dL Normal 8.5-10.2 [facility] Comment on above: Order Comment: Speci men Type: BLOOD SPECIMENOrdering Facility: [facility] Address: [address] [place] [address] Performed By: #### 2 4322, ####[facility] LABORATORYCLIA [id number] [place] [address] [place] Chloride [Moles/Vol] 104 mmol/L Normal 97-105 [facility] Comment on above: Order Comment: Speci men Type: BLOOD SPECIMENOrdering Facility: [facility] Address: [address] [place] [address] Performed By: #### 2 4321-2, ####[facility] LABORATORYCLIA [id number] [place] [address] [place] CO2 [Moles/Vol] 26 mmol/L Normal 22-30 [facility] Comment on above: Order Comment: Speci men Type: BLOOD SPECIMENOrdering Facility: [facility] Address: [address] [place] [address] Performed By: #### 2 4321-2, ####[facility] LABORATORYCLIA [id number] [address] [place] Creatinine [Mass/Vol] 0.57 mg/dL Low 0.73-1.22 [facility] Comment on above: Order Comment: Speci men Type: BLOOD SPECIMENOrdering Facility: [facility] Address: [address] [place] [address] Performed By: #### 2 4321-2, ####[facility] LABORATORYCLIA [id number] [place] [address] [place] GFR/1.73 sq M.predicted MDRD (S/P/Bld) [Vol rate/Area] mL/min/{1.73_m2} Normal [facility] Comment on above: Order Comment: Speci men Type: BLOOD SPECIMENOrdering Facility: [facility] Address: [address] [place] [address] Result Comment: >60e GFR (Estimated GFR) Units [...] actual GFR. Performed By: #### 2 4320-06, ####[facility]ORATORYCLIA [id number] [place] [address] [place] Glucose [Mass/Vol] 133 mg/dL High 74-99 [facility] Comment on above: Order Comment: Speci men Type: BLOOD SPECIMENOrdering Facility: [facility] Address: [address] [place], [place] [phone] Result Comment: The [place] [employer] (ADA) provides guidance for cutoff [...] Standards of Medical Care in Diabetes 2016, [place] [employer]. Diabetes Care. 2016.39(Suppl 1). Performed By: #### 2 4320-06, ####[facility] LABORATORYCLIA [id number] [place] [address] [place] Potassium [Moles/Vol] 4.2 mmol/L Normal 3.7-5.1 [facility] Comment on above: Order Comment: Speci men Type: BLOOD SPECIMENOrdering Facility: [facility] Address: [address] [place] [address] Performed By: #### 2 4320-06, ####[facility] LABORATORYCLIA [id number] [place] [address] [place] Sodium [Moles/Vol] 140 mmol/L Normal 136-144 [facility] Comment on above: Order Comment: Speci men Type: BLOOD SPECIMENOrdering Facility: [facility] Address: [address] [place] [address] Performed By: #### 2 4321-2, 32382-8 ####[facility] LABORATORYCLIA [id number] [address] [place] Urea nitrogen [Mass/Vol] 24 mg/dL Normal 9-24 [facility] Comment on above: Order Comment: Speci men Type: BLOOD SPECIMENOrdering Facility: [facility] Address: [address] [place] [address] Performed By: #### 2 4321-2, 49268-6 ####[facility] LABORATORYCLIA [id number] [address] [place] CASE MANAGEMon 06-27-2021 CASE MANAGEM Normal [facility] CBC panel Auto (Bld)on 06-27 Erythrocyte distribution width (RBC) [Ratio] 15.8 % High 11.5-15.0 [facility] Comment on above: Order Comment: Speci men Type: BLOOD SPECIMENOrdering Facility: [facility] Address: [address] [place] [address] Performed By: #### 5 8410-2 ####[facility] LABORATORYCLIA [id number] [address] [place] Hematocrit (Bld) [Volume fraction] 31.4 % Low 39.0-51.0 [facility] Comment on above: Order Comment: Speci men Type: BLOOD SPECIMENOrdering Facility: [facility] Address: [address] [place] [address] Performed By: #### 5 8410-2 ####[facility] LABORATORYCLIA [id number] [place] [address] [place] Hemoglobin (Bld) [Mass/Vol] 9.3 g/dL Low 13.0-17.0 [facility] Comment on above: Order Comment: Speci men Type: BLOOD SPECIMENOrdering Facility: [facility] Address: [address] [place] [address] Performed By: #### 5 8410-2 ####[facility] LABORATORYCLIA [id number] [address] MCH (RBC) [Entitic mass] 27.0 pg Normal 26.0-34.0 [facility] Comment on above: Order Comment: Speci men Type: BLOOD SPECIMENOrdering Facility: [facility] Address: [address] [place] [address] Performed By: #### 5 8410-2 ####[facility] LABORATORYCLIA [id number] [address] MCHC (RBC) [Mass/Vol] 29.6 g/dL Low 30.5-36.0 [facility] Comment on above: Order Comment: Speci men Type: BLOOD SPECIMENOrdering Facility: [facility] Address: [address] [place] [address] Performed By: #### 5 8410-2 ####[facility] LABORATORYCLIA [id number] [address] MCV (RBC) [Entitic vol] 91.3 fL Normal 80.0-100.0 [facility] Comment on above: Order Comment: Speci men Type: BLOOD SPECIMENOrdering Facility: [facility] Address: [address] [place] [address] Performed By: #### 5 8410-2 ####[facility] LABORATORYCLIA [id number] [address] Nucleated RBC (Bld) [#/Vol] 10*3/uL Normal <0.01 [facility] Comment on above: Order Comment: Speci men Type: BLOOD SPECIMENOrdering Facility: [facility] Address: [address] [place] [address] Performed By: #### 5 8410-2 ####[facility] LABORATORYCLIA [id number] [address] Platelet mean volume (Bld) [Entitic vol] 10.3 fL Normal 9.0-12.7 [facility] Comment on above: Order Comment: Speci men Type: BLOOD SPECIMENOrdering Facility: [facility] Address: [address] [place] [address] Performed By: #### 5 8410-2 ####[facility] LABORATORYCLIA [id number] [address] [place] Platelets (Bld) [#/Vol] 359 10*3/uL Normal 150-400 [facility] Comment on above: Order Comment: Speci men Type: BLOOD SPECIMENOrdering Facility: [facility] Address: [address] [place] [address] Performed By: #### 5 8410-2 ####[facility] LABORATORYCLIA [id number] [place] [address] [place] RBC (Bld) [#/Vol] 3.44 10*6/uL Low 4.20-6.00 [facility] Comment on above: Order Comment: Speci men Type: BLOOD SPECIMENOrdering Facility: [facility] Address: [address] [place] [address] Performed By: #### 5 8410-2 ####[facility] LABORATORYCLIA [id number] [address] [place] [facility] WBC (Bld) [#/Vol] 10.73 10*3/uL Normal 3.70-11.00 [facility] Comment on above: Order Comment: Speci men Type: BLOOD SPECIMENOrdering Facility: [facility] Address: [address] [place] [address] Performed By: #### 5 8410-2 ####[facility] LABORATORYCLIA [id number] [address] [place] Magnesium SerPl-mCncon 06-27 Magnesium [Mass/Vol] 2.2 mg/dL Normal 1.7-2.3 [facility] Comment on above: Order Comment: Speci men Type: BLOOD SPECIMENOrdering Facility: [facility] Address: [address] [place] [address] Performed By: #### 2 4321-2, 18556-2 ####[facility] LABORATORYCLIA [id number] [place] [address] [place] NT-proBNP SerPl-mCncon 06-27 Natriuretic peptide.B prohormone N-Terminal [Mass/Vol] 184 pg/mL High <125 [facility] Comment on above: Order Comment: Speci men Type: BLOOD SPECIMENOrdering Facility: [facility] Address: [address] [place] [address] Performed By: #### 3 3762-6 ####[facility] LABORATORYCLIA [id number] [place] [address] [place] NUTRITIONon 06-27-2021 NUTRITION Normal [facility] THERAPY NTon 06-27-2021 THERAPY NT Normal [facility] THERAPY NT Normal [facility] XR CHEST 1V FRONTALon 2021 XR CHEST 1V FRONTAL Normal [facility] Basic metabolic 2000 panelon 06-26-2021 Anion gap [Moles/Vol] 9 mmol/L Normal 9-18 [facility] Comment on above: Order Comment: Speci men Type: BLOOD SPECIMENOrdering Facility: [facility] Address: [address] [place] [address] Performed By: #### 1 9123-9, 00632-2 ####[facility] LABORATORYCLIA [id number] [place] [address] [place] Calcium [Mass/Vol] 8.7 mg/dL Normal 8.5-10.2 [facility] Comment on above: Order Comment: Speci men Type: BLOOD SPECIMENOrdering Facility: [facility] Address: [address] [place] [address] Performed By: #### 1 9123-9, 85994-6 ####[facility] LABORATORYCLIA [id number] [place] [address] [place] Chloride [Moles/Vol] 105 mmol/L Normal 97-105 [facility] Comment on above: Order Comment: Speci men Type: BLOOD SPECIMENOrdering Facility: [facility] Address: [address] [place] [address] Performed By: #### 1 9123-9, 64319-9 ####[facility] LABORATORYCLIA [id number] [address] [place] [facility] CO2 [Moles/Vol] 26 mmol/L Normal 22-30 [facility] Comment on above: Order Comment: Speci men Type: BLOOD SPECIMENOrdering Facility: [facility] Address: [address] [place] [address] Performed By: #### 1 9123-9, 16057-3 ####[facility] LABORATORYCLIA [id number] [address] [place] Creatinine [Mass/Vol] 0.56 mg/dL Low 0.73-1.22 [facility] Comment on above: Order Comment: Speci men Type: BLOOD SPECIMENOrdering Facility: [facility] Address: [address] [place] [address] Performed By: #### 1 9123-9, 78653-4 ####[facility] LABORATORYCLIA [id number] [address] [place] GFR/1.73 sq M.predicted MDRD (S/P/Bld) [Vol rate/Area] mL/min/{1.73_m2} Normal [facility] Comment on above: Order Comment: Speci men Type: BLOOD SPECIMENOrdering Facility: [facility] Address: [address] [place] [address] Result Comment: >60e GFR (Estimated GFR) Units [...] actual GFR. Performed By: #### 1 9123-9, 40659-5 ####[facility] LABORATORYCLIA [id number] [place] [address] [place] Glucose [Mass/Vol] 134 mg/dL High 74-99 [facility] Comment on above: Order Comment: Speci francia Type: BLOOD SPECIMENOrdering Facility: [facility] Address: [address] [place] [address] Result Comment: The [place] [employer] (ADA) provides guidance for cutoff [...] Standards of Medical Care in Diabetes 2016, [place] [employer]. Diabetes Care. 2016.39(Suppl 1). Performed By: #### 1 9123-9, 26687-2 ####[facility] LABORATORYCLIA [id number] [place] [address] [place] Potassium [Moles/Vol] 3.8 mmol/L Normal 3.7-5.1 [facility] Comment on above: Order Comment: Johni men Type: BLOOD SPECIMENOrdering Facility: [facility] Address: [address] [address] Performed By: #### 1 9123-9, 94672-5 ####[facility] LABORATORYCLIA [id number] [place] [address] [place] Sodium [Moles/Vol] 140 mmol/L Normal 136-144 [facility] Comment on above: Order Comment: Johni men Type: BLOOD SPECIMENOrdering Facility: [facility] Address: [address] [place] [address] Performed By: #### 1 91239, 60211-0 ####[facility] LABORATORYCLIA [id number] [address] [place] Urea nitrogen [Mass/Vol] 24 mg/dL Normal 9-24 [facility] Comment on above: Order Comment: Speci men Type: BLOOD SPECIMENOrdering Facility: [facility] Address: [address] [place] [address] Performed By: #### 1 9123-9, 45734-4 ####[facility] LABORATORYCLIA [id number] [address] CBC panel Auto (Bld)on 06-26 Erythrocyte distribution width (RBC) [Ratio] 15.9 % High 11.5-15.0 [facility] Comment on above: Order Comment: Speci men Type: BLOOD SPECIMENOrdering Facility: [facility] Address: [address] [place] [address] Performed By: #### 5 8410-2 ####[facility] LABORATORYCLIA [id number] [address] [facility] Hematocrit (Bld) [Volume fraction] 29.8 % Low 39.0-51.0 [facility] Comment on above: Order Comment: Speci men Type: BLOOD SPECIMENOrdering Facility: [facility] Address: [address] [place] [address] Performed By: #### 5 8410-2 ####[facility] LABORATORYCLIA [id number] [address] [place] [facility] Hemoglobin (Bld) [Mass/Vol] 9.1 g/dL Low 13.0-17.0 [facility] Comment on above: Order Comment: Speci men Type: BLOOD SPECIMENOrdering Facility: [facility] Address: [address] [place] [address] Performed By: #### 5 8410-2 ####[facility] LABORATORYCLIA [id number] [address] [place] MCH (RBC) [Entitic mass] 27.8 pg Normal 26.0-34.0 [facility] Comment on above: Order Comment: Speci men Type: BLOOD SPECIMENOrdering Facility: [facility] Address: [address] [place] [address] Performed By: #### 5 8410-2 ####[facility] LABORATORYCLIA [id number] [address] MCHC (RBC) [Mass/Vol] 30.5 g/dL Normal 30.5-36.0 [facility] Comment on above: Order Comment: Speci men Type: BLOOD SPECIMENOrdering Facility: [facility] Address: [address] [place] [address] Performed By: #### 5 8410-2 ####[facility] LABORATORYCLIA [id number] [address] [place] MCV (RBC) [Entitic vol] 91.1 fL Normal 80.0-100.0 [facility] Comment on above: Order Comment: Speci men Type: BLOOD SPECIMENOrdering Facility: [facility] Address: [address] [place] [address] Performed By: #### 5 8410-2 ####[facility] LABORATORYCLIA [id number] [address] Nucleated RBC (Bld) [#/Vol] 10*3/uL Normal <0.01 [facility] Comment on above: Order Comment: Speci men Type: BLOOD SPECIMENOrdering Facility: [facility] Address: [address] [place] [address] Performed By: #### 5 8410-2 ####[facility] LABORATORYCLIA [id number] [address] [facility] Platelet mean volume (Bld) [Entitic vol] 10.3 fL Normal 9.0-12.7 [facility] Comment on above: Order Comment: Speci men Type: BLOOD SPECIMENOrdering Facility: [facility] Address: [address] [place] [address] Performed By: #### 5 8410-2 ####[facility] LABORATORYCLIA [id number] [address] Platelets (Bld) [#/Vol] 336 10*3/uL Normal 150-400 [facility] Comment on above: Order Comment: Speci men Type: BLOOD SPECIMENOrdering Facility: [facility] Address: [address] [place] [address] Performed By: #### 5 8410-2 ####[facility] LABORATORYCLIA [id number] [address] OF [facility] RBC (Bld) [#/Vol] 3.27 10*6/uL Low 4.20-6.00 [facility] Comment on above: Order Comment: Speci men Type: BLOOD SPECIMENOrdering Facility: [facility] Address: [address] [place] [address] Performed By: #### 5 8410-2 ####[facility] LABORATORYCLIA [id number] [address] WBC (Bld) [#/Vol] 9.14 10*3/uL Normal 3.70-11.00 [facility] Comment on above: Order Comment: Speci men Type: BLOOD SPECIMENOrdering Facility: [facility] Address: [address] [place] [address] Performed By: #### 5 8410-2 ####[facility] LABORATORYCLIA [id number] [address] CONSULT PROGon 06-26-2021 CONSULT PROG Normal [facility] Magnesium SerPl-mCncon 06-26 Magnesium [Mass/Vol] 2.2 mg/dL Normal 1.7-2.3 [facility] Comment on above: Order Comment: Speci men Type: BLOOD SPECIMENOrdering Facility: [facility] Address: [address] [place] [address] Performed By: #### 1 9123-9, 68190-4 ####[facility] LABORATORYCLIA [id number] [address] NURSING PROGon 06-26-2021 NURSING PROG Normal [facility] NURSING PROG Normal [facility] Basic metabolic 2000 panelon 06-25-2021 Anion gap [Moles/Vol] 8 mmol/L Low 9-18 [facility] Comment on above: Order Comment: Speci men Type: BLOOD SPECIMENOrdering Facility: [facility] Address: [address] [place] [address] Performed By: #### 2 1-2, ####[facility] LABORATORYCLIA [id number] [place] [address] [place] Calcium [Mass/Vol] 8.8 mg/dL Normal 8.5-10.2 [facility] Comment on above: Order Comment: Speci men Type: BLOOD SPECIMENOrdering Facility: [facility] Address: [address] [place] [address] Performed By: #### 2 2, ####[facility]ORATORYCLIA [id number] [place] [address] [place] Chloride [Moles/Vol] 105 mmol/L Normal 97-105 [facility] Comment on above: Order Comment: Speci men Type: BLOOD SPECIMENOrdering Facility: [facility] Address: [address] [place] [address] Performed By: #### 2 2, ####[facility]ORATORYCLIA [id number] [place] [address] [place] CO2 [Moles/Vol] 27 mmol/L Normal 22-30 [facility] Comment on above: Order Comment: Speci men Type: BLOOD SPECIMENOrdering Facility: [facility] Address: [address] [place] [address] Performed By: #### 2 2, ####[facility] LABORATORYCLIA [id number] [place] [address] [place] Creatinine [Mass/Vol] 0.59 mg/dL Low 0.73-1.22 [facility] Comment on above: Order Comment: Shira feldman Type: BLOOD SPECIMENOrdering Facility: [facility] Address: [address] [phone] Performed By: #### 2 4321-2, ####[facility] LABORATORYCLIA [id number] [place] [address] [place] GFR/1.73 sq M.predicted MDRD (S/P/Bld) [Vol rate/Area] mL/min/{1.73_m2} Normal [facility] Comment on above: Order Comment: [facility] Type: BLOOD SPECIMENOrdering Facility: [facility] Address: [address] [phone] Result Comment: >60e GFR (Estimated GFR) Units [...] actual GFR. Performed By: #### 2 4321-2, ####[facility] LABORATORYCLIA [id number] [place] [address] [place] Glucose [Mass/Vol] 132 mg/dL High 74-99 [facility] Comment on above: Order Comment: Johncara feldman Type: BLOOD SPECIMENOrdering Facility: [facility] Address: [address] [phone] Result Comment: The [place] [employer] (ADA) provides guidance for cutoff [...] Standards of Medical Care in Diabetes 2016, [place] [employer]. Diabetes Care. 2016.39(Suppl 1). Performed By: #### 2 4320-2, ####[facility]ORATORYCLIA [id number] [place] [address] [place] [facility] Potassium [Moles/Vol] 3.9 mmol/L Normal 3.7-5.1 [facility] Comment on above: Order Comment: Shira feldman Type: BLOOD SPECIMENOrdering Facility: [facility] Address: [address] [place] [address] Performed By: #### 2 4320-06, ####[facility] LABORATORYCLIA [id number] [address] [place] [facility] Sodium [Moles/Vol] 140 mmol/L Normal 136-144 [facility] Comment on above: Order Comment: Shira feldman Type: BLOOD SPECIMENOrdering Facility: [facility] Address: [address] [place] [address] Performed By: #### 2 4320-06, ####[facility] LABORATORYCLIA [id number] [address] [facility] Urea nitrogen [Mass/Vol] 24 mg/dL Normal 9-24 [facility] Comment on above: Order Comment: Shira feldman Type: BLOOD SPECIMENOrdering Facility: [facility] Address: [address] [place] [address] Performed By: #### 2 4320-06, ####[facility] LABORATORYCLIA [id number] [address] [place] CASE MANAGEMon 06-25-2021 CASE MANAGEM Normal [facility] CBC panel Auto (Bld)on 06-25 Erythrocyte distribution width (RBC) [Ratio] 15.9 % High 11.5-15.0 [facility] Comment on above: Order Comment: Speci men Type: BLOOD SPECIMENOrdering Facility: [facility] Address: [address] [place] [address] Performed By: #### 5 8410-2 ####[facility] LABORATORYCLIA [id number] [address] Hematocrit (Bld) [Volume fraction] 31.0 % Low 39.0-51.0 [facility] Comment on above: Order Comment: Speci men Type: BLOOD SPECIMENOrdering Facility: [facility] Address: [address] [place] [address] Performed By: #### 5 8410-2 ####[facility] LABORATORYCLIA [id number] [address] Hemoglobin (Bld) [Mass/Vol] 9.4 g/dL Low 13.0-17.0 [facility] Comment on above: Order Comment: Speci men Type: BLOOD SPECIMENOrdering Facility: [facility] Address: [address] [place] [address] Performed By: #### 5 8410-2 ####[facility] LABORATORYCLIA [id number] [address] MCH (RBC) [Entitic mass] 28.1 pg Normal 26.0-34.0 [facility] Comment on above: Order Comment: Speci men Type: BLOOD SPECIMENOrdering Facility: [facility] Address: [address] [place] [address] Performed By: #### 5 8410-2 ####[facility] LABORATORYCLIA [id number] [address] [place] MCHC (RBC) [Mass/Vol] 30.3 g/dL Low 30.5-36.0 [facility] Comment on above: Order Comment: Speci men Type: BLOOD SPECIMENOrdering Facility: [facility] Address: [address] [place] [address] Performed By: #### 5 8410-2 ####[facility] LABORATORYCLIA [id number] [address] MCV (RBC) [Entitic vol] 92.5 fL Normal 80.0-100.0 [facility] Comment on above: Order Comment: Speci men Type: BLOOD SPECIMENOrdering Facility: [facility] Address: [address] [place] [address] Performed By: #### 5 8410-2 ####[facility] LABORATORYCLIA [id number] [address] [place] Nucleated RBC (Bld) [#/Vol] 10*3/uL Normal <0.01 [facility] Comment on above: Order Comment: Speci men Type: BLOOD SPECIMENOrdering Facility: [facility] Address: [address] [place] [address] Performed By: #### 5 8410-2 ####[facility] LABORATORYCLIA [id number] [address] [place] [facility] Platelet mean volume (Bld) [Entitic vol] 10.5 fL Normal 9.0-12.7 [facility] Comment on above: Order Comment: Speci men Type: BLOOD SPECIMENOrdering Facility: [facility] Address: [address] [place] [address] Performed By: #### 5 8410-2 ####[facility] LABORATORYCLIA [id number] [address] Platelets (Bld) [#/Vol] 311 10*3/uL Normal 150-400 [facility] Comment on above: Order Comment: Speci men Type: BLOOD SPECIMENOrdering Facility: [facility] Address: [address] [place] [address] Performed By: #### 5 8410-2 ####[facility] LABORATORYCLIA [id number] [address] [place] RBC (Bld) [#/Vol] 3.35 10*6/uL Low 4.20-6.00 [facility] Comment on above: Order Comment: Speci men Type: BLOOD SPECIMENOrdering Facility: [facility] Address: [address] [place] [address] Performed By: #### 5 8410-2 ####[facility] LABORATORYCLIA [id number] [address] [place] WBC (Bld) [#/Vol] 9.57 10*3/uL Normal 3.70-11.00 [facility] Comment on above: Order Comment: Speci men Type: BLOOD SPECIMENOrdering Facility: [facility] Address: [address] [place] [address] Performed By: #### 5 8410-2 ####[facility] LABORATORYCLIA [id number] [address] [place] Magnesium SerPl-mCncon 06-25 Magnesium [Mass/Vol] 2.4 mg/dL High 1.7-2.3 [facility] Comment on above: Order Comment: Speci men Type: BLOOD SPECIMENOrdering Facility: [facility] Address: [address] [place] [address] Performed By: #### 2 4321-2, 13610-6 ####[facility]ORATORYCLIA [id number] [address] [place] Basic metabolic 2000 panelon 06-24-2021 Anion gap [Moles/Vol] 9 mmol/L Normal 9-18 [facility] Comment on above: Order Comment: Speci men Type: BLOOD SPECIMENOrdering Facility: [facility] Address: [address] [place] [address] Performed By: #### 1 9123-9, 93484-3 ####[facility]ORATORYCLIA [id number] [address] [place] Calcium [Mass/Vol] 8.6 mg/dL Normal 8.5-10.2 [facility] Comment on above: Order Comment: Speci men Type: BLOOD SPECIMENOrdering Facility: [facility] Address: [address] [place] [address] Performed By: #### 1 9123-9, 58067-8 ####[facility] LABORATORYCLIA [id number] [place] [address] [place] Chloride [Moles/Vol] 103 mmol/L Normal 97-105 [facility] Comment on above: Order Comment: Speci men Type: BLOOD SPECIMENOrdering Facility: [facility] Address: [address] [place] [address] Performed By: #### 1 9123-9, 56826-3 ####[facility]ORATORYCLIA [id number] [address] [place] CO2 [Moles/Vol] 26 mmol/L Normal 22-30 [facility] Comment on above: Order Comment: Speci men Type: BLOOD SPECIMENOrdering Facility: [facility] Address: [address] [place] [address] Performed By: #### 1 9123-9, 93303-2 ####[facility]CL[facility] [id number] [address] [place] Creatinine [Mass/Vol] 0.60 mg/dL Low 0.73-1.22 [facility] Comment on above: Order Comment: Speci men Type: BLOOD SPECIMENOrdering Facility: [facility] Address: [address] [place] [address] Performed By: #### 1 9123-9, 61952-9 ####[facility]CL[facility] [id number] [address] [place] GFR/1.73 sq M.predicted MDRD (S/P/Bld) [Vol rate/Area] mL/min/{1.73_m2} Normal [facility] Comment on above: Order Comment: Speci men Type: BLOOD SPECIMENOrdering Facility: [facility] Address: [address] [place] [address] Result Comment: >60e GFR (Estimated GFR) Units [...] actual GFR. Performed By: #### 1 9123-9, 55867-1 ####[facility]ORATORYCLIA [id number] [place] [address] [place] Glucose [Mass/Vol] 126 mg/dL High 74-99 [facility] Comment on above: Order Comment: Shira feldman Type: BLOOD SPECIMENOrdering Facility: [facility] Address: [address] [place], [place] [phone] Result Comment: The [place] [employer] (ADA) provides guidance for cutoff [...] Standards of Medical Care in Diabetes 2016, [place] [employer]. Diabetes Care. 2016.39(Suppl 1). Performed By: #### 1 9123-9, 81639-3 ####[facility] LABORATORYCLIA [id number] [place] [address] [place] Potassium [Moles/Vol] 3.9 mmol/L Normal 3.7-5.1 [facility] Comment on above: Order Comment: Shira feldman Type: BLOOD SPECIMENOrdering Facility: [facility] Address: [address] [place] [address] Performed By: #### 1 9123-9, 83869-7 ####[facility] LABORATORYCLIA [id number] [place] [address] [place] Sodium [Moles/Vol] 138 mmol/L Normal 136-144 [facility] Comment on above: Order Comment: Speci men Type: BLOOD SPECIMENOrdering Facility: [facility] Address: [address] [place] [address] Performed By: #### 1 9123-9, 66973-6 ####[facility]ORATORYCLIA [id number] [address] [place] Urea nitrogen [Mass/Vol] 24 mg/dL Normal 9-24 [facility] Comment on above: Order Comment: Speci men Type: BLOOD SPECIMENOrdering Facility: [facility] Address: [address] [place] [address] Performed By: #### 1 9123-9, 18056-9 ####[facility] LABORATORYCLIA [id number] [address] CASE MANAGEMon 06-24-2021 CASE MANAGEM Normal [facility] CASE MANAGEM Normal [facility] CASE MANAGEM Normal [facility] CBC panel Auto (Bld)on 06-24 Erythrocyte distribution width (RBC) [Ratio] 16.1 % High 11.5-15.0 [facility] Comment on above: Order Comment: Speci men Type: BLOOD SPECIMENOrdering Facility: [facility] Address: [address] [place] [address] Performed By: #### 5 8410-2 ####[facility] LABORATORYCLIA [id number] [address] [place] [facility] Hematocrit (Bld) [Volume fraction] 31.7 % Low 39.0-51.0 [facility] Comment on above: Order Comment: Speci men Type: BLOOD SPECIMENOrdering Facility: [facility] Address: [address] [place] [address] Performed By: #### 5 8410-2 ####[facility]ORATORYCLIA [id number] [address] [place] Hemoglobin (Bld) [Mass/Vol] 9.7 g/dL Low 13.0-17.0 [facility] Comment on above: Order Comment: Speci men Type: BLOOD SPECIMENOrdering Facility: [facility] Address: [address] [place] [address] Performed By: #### 5 8410-2 ####[facility]ORATORYCLIA [id number] [address] MCH (RBC) [Entitic mass] 28.0 pg Normal 26.0-34.0 [facility] Comment on above: Order Comment: Speci men Type: BLOOD SPECIMENOrdering Facility: [facility] Address: [address] [place] [address] Performed By: #### 5 8410-2 ####[facility]ORATORYCLIA [id number] [address] MCHC (RBC) [Mass/Vol] 30.6 g/dL Normal 30.5-36.0 [facility] Comment on above: Order Comment: Speci men Type: BLOOD SPECIMENOrdering Facility: [facility] Address: [address] [place] [address] Performed By: #### 5 8410-2 ####[facility] LABORATORYCLIA [id number] [address] MCV (RBC) [Entitic vol] 91.4 fL Normal 80.0-100.0 [facility] Comment on above: Order Comment: Speci men Type: BLOOD SPECIMENOrdering Facility: [facility] Address: [address] [place] [address] Performed By: #### 5 8410-2 ####[facility]ORATORYCLIA [id number] [address] Nucleated RBC (Bld) [#/Vol] 10*3/uL Normal <0.01 [facility] Comment on above: Order Comment: Speci men Type: BLOOD SPECIMENOrdering Facility: [facility] Address: [address] [place] [address] Performed By: #### 5 8410-2 ####[facility] LABORATORYCLIA [id number] [address] [place] Platelet mean volume (Bld) [Entitic vol] 11.0 fL Normal 9.0-12.7 [facility] Comment on above: Order Comment: Speci men Type: BLOOD SPECIMENOrdering Facility: [facility] Address: [address] [place] [address] Performed By: #### 5 8410-2 ####[facility] LABORATORYCLIA [id number] [place] [address] [place] Platelets (Bld) [#/Vol] 358 10*3/uL Normal 150-400 [facility] Comment on above: Order Comment: Speci men Type: BLOOD SPECIMENOrdering Facility: [facility] Address: [address] [place] [address] Performed By: #### 5 8410-2 ####[facility]ORATORYCLIA [id number] [place] [address] [place] RBC (Bld) [#/Vol] 3.47 10*6/uL Low 4.20-6.00 [facility] Comment on above: Order Comment: Speci men Type: BLOOD SPECIMENOrdering Facility: [facility] Address: [address] [place] [address] Performed By: #### 5 8410-2 ####[facility]ORATORYCLIA [id number] [address] [place] WBC (Bld) [#/Vol] 10.07 10*3/uL Normal 3.70-11.00 [facility] Comment on above: Order Comment: Speci men Type: BLOOD SPECIMENOrdering Facility: [facility] Address: [address] [place] [address] Performed By: #### 5 8410-2 ####[facility] LABORATORYCLIA [id number] [address] [place] Magnesium SerPl-mCncon 06-24 Magnesium [Mass/Vol] 2.3 mg/dL Normal 1.7-2.3 [facility] Comment on above: Order Comment: Speci men Type: BLOOD SPECIMENOrdering Facility: [facility] Address: [address] [place] [address] Performed By: #### 1 9123-9, 13498-5 ####[facility]ORATORYCLIA [id number] [place] [address] [place] ALLIED HEALTHon 06-23-2021 ALLIED HEALTH Normal [facility] Basic metabolic 2000 panelon 06-23-2021 Anion gap [Moles/Vol] 9 mmol/L Normal 9-18 [facility] Comment on above: Order Comment: Speci men Type: BLOOD SPECIMENOrdering Facility: [facility] Address: [address] [place] [address] Performed By: #### 1 9123-9, 63667-2 ####[facility]ORATORYCLIA [id number] [place] [address] [place] Calcium [Mass/Vol] 8.4 mg/dL Low 8.5-10.2 [facility] Comment on above: Order Comment: Speci men Type: BLOOD SPECIMENOrdering Facility: [facility] Address: [address] [place] [address] Performed By: #### 1 9123-9, 77173-9 ####[facility]ORATORYCLIA [id number] [place] [address] [place] Chloride [Moles/Vol] 104 mmol/L Normal 97-105 [facility] Comment on above: Order Comment: Speci men Type: BLOOD SPECIMENOrdering Facility: [facility] Address: [address] [place] [address] Performed By: #### 1 9123-9, 42034-4 ####[facility]ORATORYCLIA [id number] [place] [address] [place] CO2 [Moles/Vol] 26 mmol/L Normal 22-30 [facility] Comment on above: Order Comment: Speci men Type: BLOOD SPECIMENOrdering Facility: [facility] Address: [address] [place] [address] Performed By: #### 1 9123-9, 10528-4 ####[facility]CLIA [id number] [place] [address] [place] Creatinine [Mass/Vol] 0.62 mg/dL Low 0.73-1.22 [facility] Comment on above: Order Comment: Shira francia Type: BLOOD SPECIMENOrdering Facility: [facility] Address: [address] [place] [address] Performed By: #### 1 9123-9, 86796-7 ####[facility] LABORATORYCLIA [id number] [place] [address] [place] GFR/1.73 sq M.predicted MDRD (S/P/Bld) [Vol rate/Area] mL/min/{1.73_m2} Normal [facility] Comment on above: Order Comment: [facility] Type: BLOOD SPECIMENOrdering Facility: [facility] Address: [address] [place] [address] Result Comment: >60e GFR (Estimated GFR) Units [...] actual GFR. Performed By: #### 1 9123-9, 86793-9 ####[facility] LABORATORYCLIA [id number] [place] [address] [place] Glucose [Mass/Vol] 111 mg/dL High 74-99 [facility] Comment on above: Order Comment: Shira feldman Type: BLOOD SPECIMENOrdering Facility: [facility] Address: [address] [address] Result Comment: The [place] [employer] (ADA) provides guidance for cutoff [...] Standards of Medical Care in Diabetes 2016, [place] [employer]. Diabetes Care. 2016.39(Suppl 1). Performed By: #### 1 9123-9, 46810-5 ####[facility] LABORATORYCLIA [id number] [place] [address] [place] Potassium [Moles/Vol] 4.1 mmol/L Normal 3.7-5.1 [facility] Comment on above: Order Comment: Shira feldman Type: BLOOD SPECIMENOrdering Facility: [facility] Address: [address] [place] [address] Performed By: #### 1 91239, 82895-7 ####[facility]REM[facility]CLIA [id number] [place] [address] [place] Sodium [Moles/Vol] 139 mmol/L Normal 136-144 [facility] Comment on above: Order Comment: Shira feldman Type: BLOOD SPECIMENOrdering Facility: [facility] Address: [address] [place] [address] Performed By: #### 1 91239, 43124-5 ####[facility] LABORATORYCLIA [id number] [place] [address] [place] Urea nitrogen [Mass/Vol] 26 mg/dL High 9-24 [facility] Comment on above: Order Comment: Shira feldman Type: BLOOD SPECIMENOrdering Facility: [facility] Address: [address] [place] [address] Performed By: #### 1 9123-9, 19470-8 ####[facility]ORATORYCLIA [id number] [address] [place] CASE MANAGEMon 06-23-2021 CASE MANAGEM Normal [facility] CBC panel Auto (Bld)on 06-23 Erythrocyte distribution width (RBC) [Ratio] 16.0 % High 11.5-15.0 [facility] Comment on above: Order Comment: Speci men Type: BLOOD SPECIMENOrdering Facility: [facility] Address: [address] [place] [address] Performed By: #### 5 8410-2 ####[facility] LABORATORYCLIA [id number] [address] Hematocrit (Bld) [Volume fraction] 31.1 % Low 39.0-51.0 [facility] Comment on above: Order Comment: Speci men Type: BLOOD SPECIMENOrdering Facility: [facility] Address: [address] [place] [address] Performed By: #### 5 8410-2 ####[facility] LABORATORYCLIA [id number] [address] OF [facility] Hemoglobin (Bld) [Mass/Vol] 9.5 g/dL Low 13.0-17.0 [facility] Comment on above: Order Comment: Speci men Type: BLOOD SPECIMENOrdering Facility: [facility] Address: [address] [place] [address] Performed By: #### 5 8410-2 ####[facility]ORATORYCLIA [id number] [address] [place] [facility] MCH (RBC) [Entitic mass] 28.1 pg Normal 26.0-34.0 [facility] Comment on above: Order Comment: Speci men Type: BLOOD SPECIMENOrdering Facility: [facility] Address: [address] [place] [address] Performed By: #### 5 8410-2 ####[facility]ORATORYCLIA [id number] [address] [place] MCHC (RBC) [Mass/Vol] 30.5 g/dL Normal 30.5-36.0 [facility] Comment on above: Order Comment: Speci men Type: BLOOD SPECIMENOrdering Facility: [facility] Address: [address] [address] Performed By: #### 5 8410-2 ####[facility]ORATORYCLIA [id number] [address] MCV (RBC) [Entitic vol] 92.0 fL Normal 80.0-100.0 [facility] Comment on above: Order Comment: Speci men Type: BLOOD SPECIMENOrdering Facility: [facility] Address: [facility] [address] Performed By: #### 5 8410-2 ####[facility]ATORYCLIA [id number] [address] Nucleated RBC (Bld) [#/Vol] 10*3/uL Normal <0.01 [facility] Comment on above: Order Comment: Speci men Type: BLOOD SPECIMENOrdering Facility: [facility] Address: [address] [place] [address] Performed By: #### 5 8410-2 ####[facility]ORATORYCLIA [id number] [address] Platelet mean volume (Bld) [Entitic vol] 11.0 fL Normal 9.0-12.7 [facility] Comment on above: Order Comment: Speci men Type: BLOOD SPECIMENOrdering Facility: [facility] Address: [address] Performed By: #### 5 8410-2 ####[facility] LABORATORYCLIA [id number] [address] Platelets (Bld) [#/Vol] 361 10*3/uL Normal 150-400 [facility] Comment on above: Order Comment: Speci men Type: BLOOD SPECIMENOrdering Facility: [facility] Address: [address] [place] [address] Performed By: #### 5 8410-2 ####[facility] LABORATORYCLIA [id number] [place] [address] [place] RBC (Bld) [#/Vol] 3.38 10*6/uL Low 4.20-6.00 [facility] Comment on above: Order Comment: Speci men Type: BLOOD SPECIMENOrdering Facility: [facility] Address: [address] [place] [address] Performed By: #### 5 8410-2 ####[facility]ORATORYCLIA [id number] [address] [place] WBC (Bld) [#/Vol] 9.02 10*3/uL Normal 3.70-11.00 [facility] Comment on above: Order Comment: Speci men Type: BLOOD SPECIMENOrdering Facility: [facility] Address: [address] [place] [address] Performed By: #### 5 8410-2 ####[facility]ORATORYCLIA [id number] [address] CONSULT PROGon 06-23-2021 CONSULT PROG Normal [facility] CONSULT PROG Normal [facility] Magnesium SerPl-mCncon 06-23 Magnesium [Mass/Vol] 2.4 mg/dL High 1.7-2.3 [facility] Comment on above: Order Comment: Speci men Type: BLOOD SPECIMENOrdering Facility: [facility] Address: [address] [place] [address] Performed By: #### 1 9123-9, 06952-7 ####[facility]ORATORYCLIA [id number] [address] [place] THERAPY NTon 06-23-2021 THERAPY NT Normal [facility] Vancomycin random [Mass/Vol] on 06-23-2021 Vancomycin [Mass/Vol] 22.8 ug/mL High 10.0-20.0 [facility] Comment on above: Order Comment: Speci men Type: BLOOD SPECIMENOrdering Facility: [facility] Address: [address] [place] [address] Result Comment: Refe rence ranges and high/low indicator flags are provided as general guidelines only. The treating physician must determine appropriate target levels/dosing based on the specific clinical situation. Performed By: #### 4 091-5 ####[facility]ORATORYCLIA [id number] [place] [address] [place] XR MOD BARIUM SWALLOW W SPEE Lore 06-23-2021 XR MOD BARIUM SWALLOW W SPEECH Normal [facility] Basic metabolic 2000 panelon 06-22-2021 Anion gap [Moles/Vol] 6 mmol/L Low 9-18 [facility] Comment on above: Order Comment: Speci men Type: BLOOD SPECIMENOrdering Facility: [facility] Address: [address] [place] [address] Performed By: #### 2 4321-2, ####[facility]ORATORYCLIA [id number] [place] [address] [place] Calcium [Mass/Vol] 8.5 mg/dL Normal 8.5-10.2 [facility] Comment on above: Order Comment: Speci men Type: BLOOD SPECIMENOrdering Facility: [facility] Address: [address] [place] [address] Performed By: #### 2 4320-2, ####[facility]ORATORYCLIA [id number] [place] [address] [place] Chloride [Moles/Vol] 105 mmol/L Normal 97-105 [facility] Comment on above: Order Comment: Speci men Type: BLOOD SPECIMENOrdering Facility: [facility] Address: [address] [address] Performed By: #### 2 4321-2, ####[facility]ORATORYCLIA [id number] [place] [address] [place] CO2 [Moles/Vol] 26 mmol/L Normal 22-30 [facility] Comment on above: Order Comment: Speci men Type: BLOOD SPECIMENOrdering Facility: [facility] Address: [address] [address] Performed By: #### 2 4321-2, ####[facility]CLIA [id number] [address] [id number] [place] Creatinine [Mass/Vol] 0.56 mg/dL Low 0.73-1.22 [facility] Comment on above: Order Comment: Shira feldman Type: BLOOD SPECIMENOrdering Facility: [facility] Address: [address] [place] [address] Performed By: #### 2 43205-08, ####[facility] LABORATORYCLIA [id number] [place] [address] [place] GFR/1.73 sq M.predicted MDRD (S/P/Bld) [Vol rate/Area] mL/min/{1.73_m2} Normal [facility] Comment on above: Order Comment: [facility] Type: BLOOD SPECIMENOrdering Facility: [facility] Address: [address] [place] [address] Result Comment: >60e GFR (Estimated GFR) Units [...] actual GFR. Performed By: #### 2 43205-08, ####[facility]ORATORYCLIA [id number] [place] [address] [place] Glucose [Mass/Vol] 120 mg/dL High 74-99 [facility] Comment on above: Order Comment: Shira feldman Type: BLOOD SPECIMENOrdering Facility: [facility] Address: [address] [address] Result Comment: The [place] [employer] (ADA) provides guidance for cutoff [...] Standards of Medical Care in Diabetes 2016, [place] [employer]. Diabetes Care. 2016.39(Suppl 1). Performed By: #### 2 4320-06, ####[facility]ATORYCLIA [id number] [place] [address] [place] Potassium [Moles/Vol] 4.0 mmol/L Normal 3.7-5.1 [facility] Comment on above: Order Comment: Shira feldman Type: BLOOD SPECIMENOrdering Facility: [facility] Address: [address] [place] [address] Performed By: #### 2 ####[facility]ORATORYCLIA [id number] [address] STATES OF [facility] Sodium [Moles/Vol] 137 mmol/L Normal 136-144 [facility] Comment on above: Order Comment: Shira feldman Type: BLOOD SPECIMENOrdering Facility: [facility] Address: [address] [place] [address] Performed By: #### 2 ####[facility]ORATORYCLIA [id number] [address] [place] Urea nitrogen [Mass/Vol] 25 mg/dL High 9-24 [facility] Comment on above: Order Comment: Shira feldman Type: BLOOD SPECIMENOrdering Facility: [facility] Address: [address] [place] [address] Performed By: #### 2 ####[facility]ORATORYCLIA [id number] [address] [place] CASE MANAGEMon 06-22-2021 CASE MANAGEM Normal [facility] CBC panel Auto (Bld)on 06-22 Erythrocyte distribution width (RBC) [Ratio] 16.0 % High 11.5-15.0 [facility] Comment on above: Order Comment: Speci men Type: BLOOD SPECIMENOrdering Facility: [facility] Address: [address] [place] [address] Performed By: #### 5 8410-2 ####[facility]ORATORYCLIA [id number] [address] Hematocrit (Bld) [Volume fraction] 30.5 % Low 39.0-51.0 [facility] Comment on above: Order Comment: Speci men Type: BLOOD SPECIMENOrdering Facility: [facility] Address: [address] [place] [address] Performed By: #### 5 8410-2 ####[facility]ORATORYCLIA [id number] [address] OF [facility] Hemoglobin (Bld) [Mass/Vol] 9.3 g/dL Low 13.0-17.0 [facility] Comment on above: Order Comment: Speci men Type: BLOOD SPECIMENOrdering Facility: [facility] Address: [address] [place] [address] Performed By: #### 5 8410-2 ####[facility]ORATORYCLIA [id number] [address] STATES OF [facility] MCH (RBC) [Entitic mass] 28.4 pg Normal 26.0-34.0 [facility] Comment on above: Order Comment: Speci men Type: BLOOD SPECIMENOrdering Facility: [facility] Address: [address] [place] [address] Performed By: #### 5 8410-2 ####[facility]ORATORYCLIA [id number] [address] [place] MCHC (RBC) [Mass/Vol] 30.5 g/dL Normal 30.5-36.0 [facility] Comment on above: Order Comment: Speci men Type: BLOOD SPECIMENOrdering Facility: [facility] Address: [address] [address] Performed By: #### 5 8410-2 ####[facility]ORATORYCLIA [id number] [address] MCV (RBC) [Entitic vol] 93.3 fL Normal 80.0-100.0 [facility] Comment on above: Order Comment: Speci men Type: BLOOD SPECIMENOrdering Facility: [facility] Address: [address] [address] Performed By: #### 5 8410-2 ####[facility]ORATORYCLIA [id number] [address] Nucleated RBC (Bld) [#/Vol] 10*3/uL Normal <0.01 [facility] Comment on above: Order Comment: Speci men Type: BLOOD SPECIMENOrdering Facility: [facility] Address: [address] [place] [address] Performed By: #### 5 8410-2 ####[facility]ORATORYCLIA [id number] [address] Platelet mean volume (Bld) [Entitic vol] 11.5 fL Normal 9.0-12.7 [facility] Comment on above: Order Comment: Speci men Type: BLOOD SPECIMENOrdering Facility: [facility] Address: [address] Performed By: #### 5 8410-2 ####[facility]ORATORYCLIA [id number] [address] Platelets (Bld) [#/Vol] 346 10*3/uL Normal 150-400 [facility] Comment on above: Order Comment: Speci men Type: BLOOD SPECIMENOrdering Facility: [facility] Address: [address] [place] [address] Performed By: #### 5 8410-2 ####[facility]ORATORYCLIA [id number] [address] RBC (Bld) [#/Vol] 3.27 10*6/uL Low 4.20-6.00 [facility] Comment on above: Order Comment: Speci men Type: BLOOD SPECIMENOrdering Facility: [facility] Address: [address] [place] [address] Performed By: #### 5 8410-2 ####[facility]ORATORYCLIA [id number] [place] [address] [place] WBC (Bld) [#/Vol] 9.44 10*3/uL Normal 3.70-11.00 [facility] Comment on above: Order Comment: Speci men Type: BLOOD SPECIMENOrdering Facility: [facility] Address: [address] [place] [address] Performed By: #### 5 8410-2 ####[facility]ORATORYCLIA [id number] [address] HEMOGLOBIN (HGB)on 2 Hemoglobin (Bld) [Mass/Vol] 9.7 g/dL Low 13.0-17.0 [facility] Comment on above: Order Comment: Speci men Type: BLOOD SPECIMENOrdering Facility: [facility] Address: [address] [place] [address] Performed By: #### H GB ####[facility] LABORATORYCLIA [id number] [address] [place] Magnesium SerPl-mCncon 06-22 Magnesium [Mass/Vol] 2.4 mg/dL High 1.7-2.3 [facility] Comment on above: Order Comment: Speci men Type: BLOOD SPECIMENOrdering Facility: [facility] Address: [address] [place] [address] Performed By: #### 2 4321-2, 34868-0 ####[facility]ORATORYCLIA [id number] [address] [place] THERAPY NTon 06-22-2021 THERAPY NT Normal [facility] THERAPY NT Normal [facility] aPTT PPPon 06-22-2021 aPTT Coag (PPP) [Time] 62.3 s High 23.0-32.4 [facility] Comment on above: Order Comment: Speci men Type: BLOOD SPECIMENOrdering Facility: [facility] Address: [address] [place] [address] Performed By: #### 1 4979-9 ####[facility]ATORYCLIA [id number] [place] [address] [place] ALLIED HEALTHon 06-21-2021 ALLIED HEALTH Normal [facility] Basic metabolic 2000 panelon 06-21-2021 Anion gap [Moles/Vol] 8 mmol/L Low 9-18 [facility] Comment on above: Order Comment: Speci men Type: BLOOD SPECIMENOrdering Facility: [facility] Address: [address] [place] [address] Performed By: #### 2 4321-2, 19830-1 ####[facility]ORATORYCLIA [id number] [place] [address] [place] Calcium [Mass/Vol] 8.2 mg/dL Low 8.5-10.2 [facility] Comment on above: Order Comment: Speci men Type: BLOOD SPECIMENOrdering Facility: [facility] Address: [address] [place] [address] Performed By: #### 2 4321-2, ####[facility]ORATORYCLIA [id number] [place] [address] [place] Chloride [Moles/Vol] 108 mmol/L High 97-105 [facility] Comment on above: Order Comment: Speci men Type: BLOOD SPECIMENOrdering Facility: [facility] Address: [address] [place] [address] Performed By: #### 2 4321-2, ####[facility]ORATORYCLIA [id number] [place] [address] [place] CO2 [Moles/Vol] 24 mmol/L Normal 22-30 [facility] Comment on above: Order Comment: Speci francia Type: BLOOD SPECIMENOrdering Facility: [facility] Address: [address] [address] Performed By: #### 2 432-, ####[facility]REM[facility]CLIA [id number] [place] [address] [place] Creatinine [Mass/Vol] 0.61 mg/dL Low 0.73-1.22 [facility] Comment on above: Order Comment: Speci men Type: BLOOD SPECIMENOrdering Facility: [facility] Address: [address] [place] [address] Performed By: #### 2 43205-08, ####[facility]CLIA [id number] [place] [address] [place] GFR/1.73 sq M.predicted MDRD (S/P/Bld) [Vol rate/Area] mL/min/{1.73_m2} Normal [facility] Comment on above: Order Comment: [facility] Type: BLOOD SPECIMENOrdering Facility: [facility] Address: [address] [place] [address] Result Comment: >60e GFR (Estimated GFR) Units [...] actual GFR. Performed By: #### 2 432-, ####[facility]ORATORYCLIA [id number] [place] [address] [place] Glucose [Mass/Vol] 211 mg/dL High 74-99 [facility] Comment on above: Order Comment: Johncara feldman Type: BLOOD SPECIMENOrdering Facility: [facility] Address: [address] [place] [address] Result Comment: The [place] [employer] (ADA) provides guidance for cutoff [...] Standards of Medical Care in Diabetes 2016, [place] [employer]. Diabetes Care. 2016.39(Suppl 1). Performed By: #### 2 4320-06, ####[facility]ORATORYCLIA [id number] [place] [address] [place] Potassium [Moles/Vol] 4.3 mmol/L Normal 3.7-5.1 [facility] Comment on above: Order Comment: Shira feldman Type: BLOOD SPECIMENOrdering Facility: [facility] Address: [address] [address] Performed By: #### 2 4320-06, ####[facility]ORATORYCLIA [id number] [place] [address] [place] Sodium [Moles/Vol] 140 mmol/L Normal 136-144 [facility] Comment on above: Order Comment: Shira men Type: BLOOD SPECIMENOrdering Facility: [facility] Address: [address] [address] Performed By: #### 2 4320-06, ####[facility] LABORATORYCLIA [id number] [place] [address] [place] Urea nitrogen [Mass/Vol] 26 mg/dL High 9-24 [facility] Comment on above: Order Comment: Shira men Type: BLOOD SPECIMENOrdering Facility: [facility] Address: [address] [address] Performed By: #### 2 4320-06, ####[facility] LABORATORYCLIA [id number] [address] [place] [facility] CBC panel Auto (Bld)on 06-21 Erythrocyte distribution width (RBC) [Ratio] 16.1 % High 11.5-15.0 [facility] Comment on above: Order Comment: Speci men Type: BLOOD SPECIMENOrdering Facility: [facility] Address: [address] [place] [address] Performed By: #### 5 8410-2 ####[facility]ORATORYCLIA [id number] [address] Hematocrit (Bld) [Volume fraction] 29.7 % Low 39.0-51.0 [facility] Comment on above: Order Comment: Speci men Type: BLOOD SPECIMENOrdering Facility: [facility] Address: [address] [place] [address] Performed By: #### 5 8410-2 ####[facility]ORATORYCLIA [id number] [address] Hemoglobin (Bld) [Mass/Vol] 9.2 g/dL Low 13.0-17.0 [facility] Comment on above: Order Comment: Speci men Type: BLOOD SPECIMENOrdering Facility: [facility] Address: [address] [place] [address] Performed By: #### 5 8410-2 ####[facility]ORATORYCLIA [id number] [address] [place] [facility] MCH (RBC) [Entitic mass] 28.8 pg Normal 26.0-34.0 [facility] Comment on above: Order Comment: Speci men Type: BLOOD SPECIMENOrdering Facility: [facility] Address: [address] [place] [address] Performed By: #### 5 8410-2 ####[facility]ORATORYCLIA [id number] [address] [place] MCHC (RBC) [Mass/Vol] 31.0 g/dL Normal 30.5-36.0 [facility] Comment on above: Order Comment: Speci men Type: BLOOD SPECIMENOrdering Facility: [facility] Address: [address] [place], [place] [address] Performed By: #### 5 8410-2 ####[facility] LABORATORYCLIA [id number] [address] MCV (RBC) [Entitic vol] 93.1 fL Normal 80.0-100.0 [facility] Comment on above: Order Comment: Speci men Type: BLOOD SPECIMENOrdering Facility: [facility] Address: [address] [place], [place] [address] Performed By: #### 5 8410-2 ####[facility] LABORATORYCLIA [id number] [address] STATES OF [facility] Nucleated RBC (Bld) [#/Vol] 10*3/uL Normal <0.01 [facility] Comment on above: Order Comment: Speci men Type: BLOOD SPECIMENOrdering Facility: [facility] Address: [address] [place], [place] [address] Performed By: #### 5 8410-2 ####[facility]ORATORYCLIA [id number] [address] Platelet mean volume (Bld) [Entitic vol] 11.6 fL Normal 9.0-12.7 [facility] Comment on above: Order Comment: Speci men Type: BLOOD SPECIMENOrdering Facility: [facility] Address: [address] [place], [place] [address] Performed By: #### 5 8410-2 ####[facility]ORATORYCLIA [id number] [address] Platelets (Bld) [#/Vol] 347 10*3/uL Normal 150-400 [facility] Comment on above: Order Comment: Speci men Type: BLOOD SPECIMENOrdering Facility: [facility] Address: [address] [place], [place] [address] Performed By: #### 5 8410-2 ####[facility] LABORATORYCLIA [id number] [place] [address] [place] RBC (Bld) [#/Vol] 3.19 10*6/uL Low 4.20-6.00 [facility] Comment on above: Order Comment: Speci men Type: BLOOD SPECIMENOrdering Facility: [facility] Address: [address] [place] [address] Performed By: #### 5 8410-2 ####[facility] LABORATORYCLIA [id number] [address] STATES OF [facility] WBC (Bld) [#/Vol] 10.29 10*3/uL Normal 3.70-11.00 [facility] Comment on above: Order Comment: Speci men Type: BLOOD SPECIMENOrdering Facility: [facility] Address: [address] [place] [address] Performed By: #### 5 8410-2 ####[facility] LABORATORYCLIA [id number] [address] OF [facility] CONSULT PROGon 06-21-2021 CONSULT PROG Normal [facility] CONSULT PROG Normal [facility] Magnesium SerPl-mCncon 06-21 Magnesium [Mass/Vol] 2.5 mg/dL High 1.7-2.3 [facility] Comment on above: Order Comment: Speci men Type: BLOOD SPECIMENOrdering Facility: [facility] Address: [address] [place] [address] Performed By: #### 2 4321-2, 92931-8 ####[facility] LABORATORYCLIA [id number] [place] [address] [place] NUTRITIONon 06-21-2021 NUTRITION Normal [facility] XR CHEST 1V FRONTALon 2021 XR CHEST 1V FRONTAL Normal [facility] aPTT PPPon 06-21-2021 aPTT Coag (PPP) [Time] 68.5 s High 23.0-32.4 [facility] Comment on above: Order Comment: Speci men Type: BLOOD SPECIMENOrdering Facility: [facility] Address: [address] [place] [address] Performed By: #### 1 4979-9 ####[facility] LABORATORYCLIA [id number] [address] STATES [facility] aPTT Coag (PPP) [Time] 57.8 s High 23.0-32.4 [facility] Comment on above: Order Comment: Speci men Type: BLOOD SPECIMENOrdering Facility: [facility] Address: [address] [place] [address] Performed By: #### 1 4979-9 ####[facility] LABORATORYCLIA [id number] [address] [place] Basic metabolic 2000 panelon 06-20-2021 Anion gap [Moles/Vol] 9 mmol/L Normal 9-18 [facility] Comment on above: Order Comment: Speci men Type: BLOOD SPECIMENOrdering Facility: [facility] Address: [address] [place] [address] Performed By: #### 2 432-2, 44321-4 ####[facility] LABORATORYCLIA [id number] [place] [address] [place] Calcium [Mass/Vol] 8.3 mg/dL Low 8.5-10.2 [facility] Comment on above: Order Comment: Speci men Type: BLOOD SPECIMENOrdering Facility: [facility] Address: [address] [place] [address] Performed By: #### 2 432-2, 11491-8 ####[facility] LABORATORYCLIA [id number] [place] [address] [place] Chloride [Moles/Vol] 111 mmol/L High 97-105 [facility] Comment on above: Order Comment: Speci men Type: BLOOD SPECIMENOrdering Facility: [facility] Address: [address] [place] [address] Performed By: #### 2 432-2, ####[facility] LABORATORYCLIA [id number] [place] [address] [place] CO2 [Moles/Vol] 24 mmol/L Normal 22-30 [facility] Comment on above: Order Comment: Shira feldman Type: BLOOD SPECIMENOrdering Facility: [facility] Address: [address] [place] [address] Performed By: #### 2 4321-2, ####[facility] LABORATORYCLIA [id number] [place] [address] [place] Creatinine [Mass/Vol] 0.64 mg/dL Low 0.73-1.22 [facility] Comment on above: Order Comment: Shira feldman Type: BLOOD SPECIMENOrdering Facility: [facility] Address: [address] [place] [address] Performed By: #### 2 4322, ####[facility] LABORATORYCLIA [id number] [address] [place] GFR/1.73 sq M.predicted MDRD (S/P/Bld) [Vol rate/Area] mL/min/{1.73_m2} Normal [facility] Comment on above: Order Comment: Shira feldman Type: BLOOD SPECIMENOrdering Facility: [facility] Address: [address] [place] [address] Result Comment: >60e GFR (Estimated GFR) Units [...] actual GFR. Performed By: #### 2 4321-2, ####[facility] LABORATORYCLIA [id number] [place] [address] [place] Glucose [Mass/Vol] 114 mg/dL High 74-99 [facility] Comment on above: Order Comment: Shira feldman Type: BLOOD SPECIMENOrdering Facility: [facility] Address: [address] [place] [address] Result Comment: The [place] [employer] (ADA) provides guidance for cutoff [...] Standards of Medical Care in Diabetes 2016, [place] [employer]. Diabetes Care. 2016.39(Suppl 1). Performed By: #### 2 432-, ####[facility] LABORATORYCLIA [id number] [place] [address] [place] Potassium [Moles/Vol] 4.1 mmol/L Normal 3.7-5.1 [facility] Comment on above: Order Comment: Shira feldman Type: BLOOD SPECIMENOrdering Facility: [facility] Address: [address] [place] [address] Performed By: #### 2 4320-, ####[facility] LABORATORYCLIA [id number] [place] [address] [place] Sodium [Moles/Vol] 144 mmol/L Normal 136-144 [facility] Comment on above: Order Comment: Shira feldman Type: BLOOD SPECIMENOrdering Facility: [facility] Address: [address] [place] [address] Performed By: #### 2 4320-06, ####[facility] LABORATORYCLIA [id number] [place] [address] [place] Urea nitrogen [Mass/Vol] 27 mg/dL High 9-24 [facility] Comment on above: Order Comment: Speci men Type: BLOOD SPECIMENOrdering Facility: [facility] Address: [address] [place] [address] Performed By: #### 2 4321-2, 64396-5 ####[facility] LABORATORYCLIA [id number] [address] [place] CASE MANAGEMon 06-20-2021 CASE MANAGEM Normal [facility] CBC panel Auto (Bld)on 06-20 Erythrocyte distribution width (RBC) [Ratio] 15.9 % High 11.5-15.0 [facility] Comment on above: Order Comment: Speci men Type: BLOOD SPECIMENOrdering Facility: [facility] Address: [address] [place] [address] Performed By: #### 5 8410-2 ####[facility] LABORATORYCLIA [id number] [address] [place] Hematocrit (Bld) [Volume fraction] 31.0 % Low 39.0-51.0 [facility] Comment on above: Order Comment: Speci men Type: BLOOD SPECIMENOrdering Facility: [facility] Address: [address] [place] [address] Performed By: #### 5 8410-2 ####[facility] LABORATORYCLIA [id number] [address] [place] Hemoglobin (Bld) [Mass/Vol] 9.2 g/dL Low 13.0-17.0 [facility] Comment on above: Order Comment: Speci men Type: BLOOD SPECIMENOrdering Facility: [facility] Address: [address] [place] [address] Performed By: #### 5 8410-2 ####[facility] LABORATORYCLIA [id number] [address] [place] MCH (RBC) [Entitic mass] 27.4 pg Normal 26.0-34.0 [facility] Comment on above: Order Comment: Speci men Type: BLOOD SPECIMENOrdering Facility: [facility] Address: [address] [place] [address] Performed By: #### 5 8410-2 ####[facility] LABORATORYCLIA [id number] [address] [place] [facility] MCHC (RBC) [Mass/Vol] 29.7 g/dL Low 30.5-36.0 [facility] Comment on above: Order Comment: Speci men Type: BLOOD SPECIMENOrdering Facility: [facility] Address: [address] [place] [address] Performed By: #### 5 8410-2 ####[facility] LABORATORYCLIA [id number] [address] [place] MCV (RBC) [Entitic vol] 92.3 fL Normal 80.0-100.0 [facility] Comment on above: Order Comment: Speci men Type: BLOOD SPECIMENOrdering Facility: [facility] Address: [address] [place] [address] Performed By: #### 5 8410-2 ####[facility] LABORATORYCLIA [id number] [address] [place] [facility] Nucleated RBC (Bld) [#/Vol] 10*3/uL Normal <0.01 [facility] Comment on above: Order Comment: Speci men Type: BLOOD SPECIMENOrdering Facility: [facility] Address: [address] [place] [address] Performed By: #### 5 8410-2 ####[facility] LABORATORYCLIA [id number] [address] [place] Platelet mean volume (Bld) [Entitic vol] 11.5 fL Normal 9.0-12.7 [facility] Comment on above: Order Comment: Speci men Type: BLOOD SPECIMENOrdering Facility: [facility] Address: [address] [place] [address] Performed By: #### 5 8410-2 ####[facility] LABORATORYCLIA [id number] [address] [place] Platelets (Bld) [#/Vol] 343 10*3/uL Normal 150-400 [facility] Comment on above: Order Comment: Speci men Type: BLOOD SPECIMENOrdering Facility: [facility] Address: [address] [place] [address] Performed By: #### 5 8410-2 ####[facility] LABORATORYCLIA [id number] [address] [place] [facility] RBC (Bld) [#/Vol] 3.36 10*6/uL Low 4.20-6.00 [facility] Comment on above: Order Comment: Speci men Type: BLOOD SPECIMENOrdering Facility: [facility] Address: [address] [place] [address] Performed By: #### 5 8410-2 ####[facility] LABORATORYCLIA [id number] [address] OF [facility] WBC (Bld) [#/Vol] 10.71 10*3/uL Normal 3.70-11.00 [facility] Comment on above: Order Comment: Speci men Type: BLOOD SPECIMENOrdering Facility: [facility] Address: [address] [place] [address] Performed By: #### 5 8410-2 ####[facility] LABORATORYCLIA [id number] [address] CONSULT PROGon 06-20-2021 CONSULT PROG Normal [facility] HEMOGLOBIN (HGB)on 2 Hemoglobin (Bld) [Mass/Vol] 9.7 g/dL Low 13.0-17.0 [facility] Comment on above: Order Comment: Speci men Type: BLOOD SPECIMENOrdering Facility: [facility] Address: [address] [place] [address] Performed By: #### H GB ####[facility] LABORATORYCLIA [id number] [address] OF [facility] Magnesium SerPl-mCncon 06-20 Magnesium [Mass/Vol] 2.5 mg/dL High 1.7-2.3 [facility] Comment on above: Order Comment: Speci men Type: BLOOD SPECIMENOrdering Facility: [facility] Address: [address] [place] [address] Performed By: #### 2 4321-2, 22781-7 ####[facility] LABORATORYCLIA [id number] [address] [place] NURSING PROGon 06-20-2021 NURSING PROG Normal [facility] THERAPY NTon 06-20-2021 THERAPY NT Normal [facility] aPTT PPPon 06-20-2021 aPTT Coag (PPP) [Time] 93.5 s High 23.0-32.4 [facility] Comment on above: Order Comment: Speci men Type: BLOOD SPECIMENOrdering Facility: [facility] Address: [address] [place] [address] Performed By: #### 1 4979-9 ####[facility] LABORATORYCLIA [id number] [address] aPTT Coag (PPP) [Time] 47.1 s High 23.0-32.4 [facility] Comment on above: Order Comment: Speci men Type: BLOOD SPECIMENOrdering Facility: [facility] Address: [address] [place] [address] Performed By: #### 1 4979-9 ####[facility] LABORATORYCLIA [id number] [place] [address] [place] Basic metabolic 2000 panelon 06-19-2021 Anion gap [Moles/Vol] 7 mmol/L Low 9-18 [facility] Comment on above: Order Comment: Speci men Type: BLOOD SPECIMENOrdering Facility: [facility] Address: [address] [place] [address] Performed By: #### 2 4321-2 ####[facility] LABORATORYCLIA [id number] [address] [place] [facility] Calcium [Mass/Vol] 8.1 mg/dL Low 8.5-10.2 [facility] Comment on above: Order Comment: Speci men Type: BLOOD SPECIMENOrdering Facility: [facility] Address: [address] [address] Performed By: #### 2 4321-2 ####[facility] LABORATORYCLIA [id number] [place] [address] [place] Chloride [Moles/Vol] 111 mmol/L High 97-105 [facility] Comment on above: Order Comment: Speci men Type: BLOOD SPECIMENOrdering Facility: [facility] Address: [address] [place] [address] Performed By: #### 2 4321-2 ####[facility] LABORATORYCLIA [id number] [address] [place] CO2 [Moles/Vol] 24 mmol/L Normal 22-30 [facility] Comment on above: Order Comment: Speci men Type: BLOOD SPECIMENOrdering Facility: [facility] Address: [address] [place] [address] Performed By: #### 2 4321-2 ####[facility] LABORATORYCLIA [id number] [place] [address] [place] Creatinine [Mass/Vol] 0.71 mg/dL Low 0.73-1.22 [facility] Comment on above: Order Comment: Speci men Type: BLOOD SPECIMENOrdering Facility: [facility] Address: [address] [place] [address] Performed By: #### 2 4321-2 ####[facility] LABORATORYCLIA [id number] [place] [address] [place] GFR/1.73 sq M.predicted MDRD (S/P/Bld) [Vol rate/Area] mL/min/{1.73_m2} Normal [facility] Comment on above: Order Comment: Speci men Type: BLOOD SPECIMENOrdering Facility: [facility] Address: [address] [place] [address] Result Comment: >60e GFR (Estimated GFR) Units [...] actual GFR. Performed By: #### 2 4321-2 ####[facility] LABORATORYCLIA [id number] [place] [address] [place] Glucose [Mass/Vol] 110 mg/dL High 74-99 [facility] Comment on above: Order Comment: Shira feldman Type: BLOOD SPECIMENOrdering Facility: [facility] Address: [address] [place], [place] [phone] Result Comment: The [place] [employer] (ADA) provides guidance for cutoff [...] Standards of Medical Care in Diabetes 2016, [place] [employer]. Diabetes Care. 2016.39(Suppl 1). Performed By: #### 2 4321-2 ####[facility] LABORATORYCLIA [id number] [address] [place] Potassium [Moles/Vol] 3.7 mmol/L Normal 3.7-5.1 [facility] Comment on above: Order Comment: Shira feldman Type: BLOOD SPECIMENOrdering Facility: [facility] Address: [address] [id number] Performed By: #### 2 4321-2 ####[facility] LABORATORYCLIA [id number] [place] [id number] [place] Sodium [Moles/Vol] 142 mmol/L Normal 136-144 [facility] Comment on above: Order Comment: Speci men Type: BLOOD SPECIMENOrdering Facility: [facility] Address: [address] [place] [address] Performed By: #### 2 4321-2 ####[facility] LABORATORYCLIA [id number] [address] [place] Urea nitrogen [Mass/Vol] 26 mg/dL High 9-24 [facility] Comment on above: Order Comment: Speci men Type: BLOOD SPECIMENOrdering Facility: [facility] Address: [address] [place] [address] Performed By: #### 2 4321-2 ####[facility] LABORATORYCLIA [id number] [address] [place] CBC panel Auto (Bld)on 06-19 Erythrocyte distribution width (RBC) [Ratio] 15.7 % High 11.5-15.0 [facility] Comment on above: Order Comment: Speci men Type: BLOOD SPECIMENOrdering Facility: [facility] Address: [address] [place] [address] Performed By: #### 5 8410-2 ####[facility] LABORATORYCLIA [id number] [address] [place] Hematocrit (Bld) [Volume fraction] 30.9 % Low 39.0-51.0 [facility] Comment on above: Order Comment: Speci men Type: BLOOD SPECIMENOrdering Facility: [facility] Address: [address] [place] [address] Performed By: #### 5 8410-2 ####[facility] LABORATORYCLIA [id number] [address] [place] Hemoglobin (Bld) [Mass/Vol] 9.5 g/dL Low 13.0-17.0 [facility] Comment on above: Order Comment: Speci men Type: BLOOD SPECIMENOrdering Facility: [facility] Address: [address] [place] [address] Performed By: #### 5 8410-2 ####[facility] LABORATORYCLIA [id number] [address] MCH (RBC) [Entitic mass] 28.4 pg Normal 26.0-34.0 [facility] Comment on above: Order Comment: Speci men Type: BLOOD SPECIMENOrdering Facility: [facility] Address: [address] [place] [address] Performed By: #### 5 8410-2 ####[facility] LABORATORYCLIA [id number] [address] MCHC (RBC) [Mass/Vol] 30.7 g/dL Normal 30.5-36.0 [facility] Comment on above: Order Comment: Speci men Type: BLOOD SPECIMENOrdering Facility: [facility] Address: [address] [place] [address] Performed By: #### 5 8410-2 ####[facility] LABORATORYCLIA [id number] [address] MCV (RBC) [Entitic vol] 92.2 fL Normal 80.0-100.0 [facility] Comment on above: Order Comment: Speci men Type: BLOOD SPECIMENOrdering Facility: [facility] Address: [address] [place] [address] Performed By: #### 5 8410-2 ####[facility] LABORATORYCLIA [id number] [address] Nucleated RBC (Bld) [#/Vol] 10*3/uL Normal <0.01 [facility] Comment on above: Order Comment: Speci men Type: BLOOD SPECIMENOrdering Facility: [facility] Address: [address] [place] [address] Performed By: #### 5 8410-2 ####[facility] LABORATORYCLIA [id number] [address] OF [facility] Platelet mean volume (Bld) [Entitic vol] 11.7 fL Normal 9.0-12.7 [facility] Comment on above: Order Comment: Speci men Type: BLOOD SPECIMENOrdering Facility: [facility] Address: [address] [place] [address] Performed By: #### 5 8410-2 ####[facility] LABORATORYCLIA [id number] [address] [place] [facility] Platelets (Bld) [#/Vol] 323 10*3/uL Normal 150-400 [facility] Comment on above: Order Comment: Speci men Type: BLOOD SPECIMENOrdering Facility: [facility] Address: [address] [place] [address] Performed By: #### 5 8410-2 ####[facility] LABORATORYCLIA [id number] [address] [place] [facility] RBC (Bld) [#/Vol] 3.35 10*6/uL Low 4.20-6.00 [facility] Comment on above: Order Comment: Speci men Type: BLOOD SPECIMENOrdering Facility: [facility] Address: [address] [place] [address] Performed By: #### 5 8410-2 ####[facility] LABORATORYCLIA [id number] [address] OF [facility] WBC (Bld) [#/Vol] 9.53 10*3/uL Normal 3.70-11.00 [facility] Comment on above: Order Comment: Speci men Type: BLOOD SPECIMENOrdering Facility: [facility] Address: [address] [place] [address] Performed By: #### 5 8410-2 ####[facility] LABORATORYCLIA [id number] [address] [place] HEMOGLOBIN (HGB)on 2 Hemoglobin (Bld) [Mass/Vol] 9.7 g/dL Low 13.0-17.0 [facility] Comment on above: Order Comment: Speci men Type: BLOOD SPECIMENOrdering Facility: [facility] Address: [address] [place] [address] Performed By: #### H GB ####[facility] LABORATORYCLIA [id number] [address] Magnesium SerPl-mCncon 06-19 Magnesium [Mass/Vol] 2.5 mg/dL High 1.7-2.3 [facility] Comment on above: Order Comment: Speci men Type: BLOOD SPECIMENOrdering Facility: [facility] Address: [address] [place] [address] Performed By: #### 1 9123-9, 2777-1 ####[facility] LABORATORYCLIA [id number] [address] OF [facility] NURSING PROGon 06-19-2021 NURSING PROG Normal [facility] Phosphate SerPl-mCncon 06-19 Phosphate [Mass/Vol] 2.6 mg/dL Low 2.7-4.8 [facility] Comment on above: Order Comment: Speci men Type: BLOOD SPECIMENOrdering Facility: [facility] Address: [address] [place] [address] Performed By: #### 1 9123-9, 2777-1 ####[facility] LABORATORYCLIA [id number] [address] aPTT PPPon 06-19-2021 aPTT Coag (PPP) [Time] 61.9 s High 23.0-32.4 [facility] Comment on above: Order Comment: Speci men Type: BLOOD SPECIMENOrdering Facility: [facility] Address: [address] [place], [place] [id number] Performed By: #### 1 4979-9 ####[facility] LABORATORYCLIA [id number] [address] aPTT Coag (PPP) [Time] 68.6 s High 23.0-32.4 [facility] Comment on above: Order Comment: Speci men Type: BLOOD SPECIMENOrdering Facility: [facility] Address: [address] [place] [address] Performed By: #### 1 4979-9 ####[facility] LABORATORYCLIA [id number] [place] [address] [place] aPTT Coag (PPP) [Time] 83.2 s High 23.0-32.4 [facility] Comment on above: Order Comment: Speci men Type: BLOOD SPECIMENOrdering Facility: [facility] Address: [address] [place] [address] Performed By: #### 1 4979-9 ####[facility] LABORATORYCLIA [id number] [place] [address] [place] Basic metabolic 2000 panelon 06-18-2021 Anion gap [Moles/Vol] 7 mmol/L Low 9-18 [facility] Comment on above: Order Comment: Speci men Type: BLOOD SPECIMENOrdering Facility: [facility] Address: [address] [place] [address] Performed By: #### 2 4321-2, , 2776-05 ####[facility] LABORATORYCLIA [id number] [place] [address] [place] Calcium [Mass/Vol] 8.2 mg/dL Low 8.5-10.2 [facility] Comment on above: Order Comment: Speci men Type: BLOOD SPECIMENOrdering Facility: [facility] Address: [address] [place] [address] Performed By: #### 2 4321-2, , 2776-05 ####[facility] LABORATORYCLIA [id number] [place] [address] [place] Chloride [Moles/Vol] 115 mmol/L High 97-105 [facility] Comment on above: Order Comment: Speci men Type: BLOOD SPECIMENOrdering Facility: [facility] Address: [address] [place] [address] Performed By: #### 2 4321-2, , 2776- ####[facility] LABORATORYCLIA [id number] [place] [address] [place] CO2 [Moles/Vol] 23 mmol/L Normal 22-30 [facility] Comment on above: Order Comment: Shira feldman Type: BLOOD SPECIMENOrdering Facility: [facility] Address: [address] [place] [address] Performed By: #### 2 4321-2, , 2776-05 ####[facility] LABORATORYCLIA [id number] [place] [address] [place] Creatinine [Mass/Vol] 0.70 mg/dL Low 0.73-1.22 [facility] Comment on above: Order Comment: Shira feldman Type: BLOOD SPECIMENOrdering Facility: [facility] Address: [address] [place] [address] Performed By: #### 2 4321-2, , 2776-05 ####[facility] LABORATORYCLIA [id number] [place] [address] [place] GFR/1.73 sq M.predicted MDRD (S/P/Bld) [Vol rate/Area] mL/min/{1.73_m2} Normal [facility] Comment on above: Order Comment: Shira feldman Type: BLOOD SPECIMENOrdering Facility: [facility] Address: [address] [place] [address] Result Comment: >60e GFR (Estimated GFR) Units [...] Performed By: #### 2 4321-2, , 2776-05 ####[facility] LABORATORYCLIA [id number] [place] [address] [place] Glucose [Mass/Vol] 105 mg/dL High 74-99 [facility] Comment on above: Order Comment: Shira feldman Type: BLOOD SPECIMENOrdering Facility: [facility] Address: [address] [place] [address] Result Comment: The [place] [employer] (ADA) provides guidance for cutoff [...] Standards of Medical Care in Diabetes 2016, [place] [employer]. Diabetes Care. 2016.39(Suppl 1). Performed By: #### 2 4321-2, , 2776-05 ####[facility] LABORATORYCLIA [id number] [place] [address] [place] Potassium [Moles/Vol] 4.1 mmol/L Normal 3.7-5.1 [facility] Comment on above: Order Comment: Shira feldman Type: BLOOD SPECIMENOrdering Facility: [facility] Address: [address] [place], [place] [address] Performed By: #### 2 4321-2, , 2776-05 ####[facility] LABORATORYCLIA [id number] [place] [address] [place] Sodium [Moles/Vol] 145 mmol/L High 136-144 [facility] Comment on above: Order Comment: Shira feldman Type: BLOOD SPECIMENOrdering Facility: [facility] Address: [address] [place], [place] [address] Performed By: #### 2 4321-2, , 2776-05 ####[facility]ORATORYCLIA [id number] [place] [address] [place] Urea nitrogen [Mass/Vol] 27 mg/dL High 9-24 [facility] Comment on above: Order Comment: Speci men Type: BLOOD SPECIMENOrdering Facility: [facility] Address: [address] [place] [address] Performed By: #### 2 4321-2, 11591-4, 2777-1 ####[facility]ORATORYCLIA [id number] [address] STATES OF [facility] CALCIUM IONIZED Bon 06-18-19 22 Calcium.ionized (BldV) [Mass/Vol] 1.22 mmol/L Normal 1.08-1.30 [facility] Comment on above: Order Comment: Speci men Type: BLOOD SPECIMENOrdering Facility: [facility] Address: [address] [place] [address] Performed By: #### I CA ####[facility]CL[facility] [id number] [address] STATES [facility] Calcium.ionized adjusted to pH 7.4 (Bld) [Moles/Vol] 1.23 mmol/L Normal 1.08-1.30 [facility] Comment on above: Order Comment: Speci men Type: BLOOD SPECIMENOrdering Facility: [facility] Address: [address] [place] [address] Performed By: #### I CA ####[facility]ATORYCLIA [id number] [address] STATES OF [facility] CBC panel Auto (Bld)on 06-18 Erythrocyte distribution width (RBC) [Ratio] 15.8 % High 11.5-15.0 [facility] Comment on above: Order Comment: Speci men Type: BLOOD SPECIMENOrdering Facility: [facility] Address: [address] [place] [address] Performed By: #### 5 8410-2 ####[facility]ORATORYCLIA [id number] [address] Hematocrit (Bld) [Volume fraction] 29.5 % Low 39.0-51.0 [facility] Comment on above: Order Comment: Speci men Type: BLOOD SPECIMENOrdering Facility: [facility] Address: [address] [place] [address] Performed By: #### 5 8410-2 ####[facility]ORATORYCLIA [id number] [address] Hemoglobin (Bld) [Mass/Vol] 8.8 g/dL Low 13.0-17.0 [facility] Comment on above: Order Comment: Speci men Type: BLOOD SPECIMENOrdering Facility: [facility] Address: [address] [place] [address] Performed By: #### 5 8410-2 ####[facility]ORATORYCLIA [id number] [address] MCH (RBC) [Entitic mass] 27.4 pg Normal 26.0-34.0 [facility] Comment on above: Order Comment: Speci men Type: BLOOD SPECIMENOrdering Facility: [facility] Address: [address] [place] [address] Performed By: #### 5 8410-2 ####[facility]ATORYCLIA [id number] [address] MCHC (RBC) [Mass/Vol] 29.8 g/dL Low 30.5-36.0 [facility] Comment on above: Order Comment: Speci men Type: BLOOD SPECIMENOrdering Facility: [facility] Address: [address] [place] [address] Performed By: #### 5 8410-2 ####[facility]ORATORYCLIA [id number] [address] STATES [facility] MCV (RBC) [Entitic vol] 91.9 fL Normal 80.0-100.0 [facility] Comment on above: Order Comment: Speci men Type: BLOOD SPECIMENOrdering Facility: [facility] Address: [address] [place] [address] Performed By: #### 5 8410-2 ####[facility]ORATORYCLIA [id number] [address] Nucleated RBC (Bld) [#/Vol] 10*3/uL Normal <0.01 [facility] Comment on above: Order Comment: Speci men Type: BLOOD SPECIMENOrdering Facility: [facility] Address: [address] [place] [address] Performed By: #### 5 8410-2 ####[facility]ORATORYCLIA [id number] [place] [address] [place] Platelet mean volume (Bld) [Entitic vol] 11.9 fL Normal 9.0-12.7 [facility] Comment on above: Order Comment: Speci men Type: BLOOD SPECIMENOrdering Facility: [facility] Address: [address] [place] [address] Performed By: #### 5 8410-2 ####[facility]ORATORYCLIA [id number] [address] [place] Platelets (Bld) [#/Vol] 291 10*3/uL Normal 150-400 [facility] Comment on above: Order Comment: Speci men Type: BLOOD SPECIMENOrdering Facility: [facility] Address: [address] [place] [address] Performed By: #### 5 8410-2 ####[facility]ATORYCLIA [id number] [place] [address] [place] RBC (Bld) [#/Vol] 3.21 10*6/uL Low 4.20-6.00 [facility] Comment on above: Order Comment: Speci men Type: BLOOD SPECIMENOrdering Facility: [facility] Address: [address] [address] Performed By: #### 5 8410-2 ####[facility]ORATORYCLIA [id number] [place] [address] [place] WBC (Bld) [#/Vol] 10.19 10*3/uL Normal 3.70-11.00 [facility] Comment on above: Order Comment: Speci men Type: BLOOD SPECIMENOrdering Facility: [facility] Address: [address] [place], [place] [address] Performed By: #### 5 8410-2 ####[facility]ORATORYCLIA [id number] [address] [place] FERRITIN BLDon 06-18-2021 Ferritin [Mass/Vol] 600.9 ng/mL High 30.3-565.7 [facility] Comment on above: Order Comment: Speci men Type: BLOOD SPECIMENOrdering Facility: [facility] Address: [address] [place] [address] Performed By: #### S ERFOL, IRON, FERR ####[facility]ORATORYCLIA [id number] [address] FOLATE SERUMon 06-18-2021 Folate [Mass/Vol] 14.3 ng/mL Normal >4.7 [facility] Comment on above: Order Comment: Speci men Type: BLOOD SPECIMENOrdering Facility: [facility] Address: [address] [place] [address] Performed By: #### S ERFOL, IRON, FERR ####[facility]ORATORYCLIA [id number] [address] Gas and Carbon monoxide pane l (BldV)on 06-18-2021 Base excess Calc (BldV) [Moles/Vol] 0.5 mmol/L Normal 0-2 [facility] Comment on above: Order Comment: Speci men Type: VENOUS BLOOD SPECIMENOrdering Facility: [facility] Address: [address] [place] [address] Performed By: #### 2 4344-4 ####[facility]ORATORYCLIA [id number] [address] Body temperature 97.34 [degF] Normal [facility] Comment on above: Order Comment: Speci men Type: VENOUS BLOOD SPECIMENOrdering Facility: [facility] Address: [address] [place] [address] Performed By: #### 2 4344-4 ####[facility]ORATORYCLIA [id number] [address] STATES OF [facility] CALCIUM IONIZED, PH CORRECTED 1.26 mmol/L Normal 1.08-1.30 [facility] Comment on above: Order Comment: Speci men Type: VENOUS BLOOD SPECIMENOrdering Facility: [facility] Address: [address] [place] [address] Performed By: #### 2 4344-4 ####[facility]ORATORYCLIA [id number] [place] [address] [place] Calcium.ionized (BldV) [Mass/Vol] 1.25 mmol/L Normal 1.08-1.30 [facility] Comment on above: Order Comment: Speci men Type: VENOUS BLOOD SPECIMENOrdering Facility: [facility] Address: [address] [place] [address] Performed By: #### 2 4344-4 ####[facility]ORATORYCLIA [id number] [address] Carboxyhemoglobin (BldV) [Mass fraction] 1.5 % Normal 0.0-2.0 [facility] Comment on above: Order Comment: Speci men Type: VENOUS BLOOD SPECIMENOrdering Facility: [facility] Address: [address] [place] [address] Result Comment: Carb oxyhemoglobin Reference Range for Smokers: 2.0-8.0% Performed By: #### 2 4344-4 ####[facility]ORATORYCLIA [id number] [place] [address] [place] CO2 (BldV) [Partial pressure] 38 mm[Hg] Low 42-55 [facility] Comment on above: Order Comment: Speci men Type: VENOUS BLOOD SPECIMENOrdering Facility: [facility] Address: [address] [place] [address] Performed By: #### 2 4344-4 ####[facility]ORATORYCLIA [id number] [address] [place] CO2 [Moles/Vol] 22.9 mmol/L Low 25-29 [facility] Comment on above: Order Comment: Speci men Type: VENOUS BLOOD SPECIMENOrdering Facility: [facility] Address: [address] [place] [address] Performed By: #### 2 4344-4 ####[facility]ORATORYCLIA [id number] [address] CO2 adjusted to patient's actual temperature (BldV) [Partial pressure] 37 mmHg Low 42-55 [facility] Comment on above: Order Comment: Speci men Type: VENOUS BLOOD SPECIMENOrdering Facility: [facility] Address: [address] [place] [address] Performed By: #### 2 4344-4 ####[facility]ORATORYCLIA [id number] [address] OF [facility] Glucose [Mass/Vol] 103 mg/dL Normal 60-105 [facility] Comment on above: Order Comment: Speci men Type: VENOUS BLOOD SPECIMENOrdering Facility: [facility] Address: [address] [place] [address] Performed By: #### 2 4344-4 ####[facility]ORATORYCLIA [id number] [address] HCO3 (Bld) [Moles/Vol] 24.4 mmol/L Normal 24-28 [facility] Comment on above: Order Comment: Speci men Type: VENOUS BLOOD SPECIMENOrdering Facility: [facility] Address: [address] [place] [address] Performed By: #### 2 4344-4 ####[facility]ATORYCLIA [id number] [address] Hematocrit (Bld) [Volume fraction] 28.7 % Low 39.0-51.0 [facility] Comment on above: Order Comment: Speci men Type: VENOUS BLOOD SPECIMENOrdering Facility: [facility] Address: [address] [place] [address] Performed By: #### 2 4344-4 ####[facility]ORATORYCLIA [id number] [address] Hemoglobin (Bld) [Mass/Vol] 9.3 g/dL Low 13.0-17.0 [facility] Comment on above: Order Comment: Speci men Type: VENOUS BLOOD SPECIMENOrdering Facility: [facility] Address: [address] [address] Performed By: #### 2 4344-4 ####[facility]ORATORYCLIA [id number] [address] [place] Methemoglobin (Bld) [Mass fraction] % Normal 0.0-1.5 [facility] Comment on above: Order Comment: Speci men Type: VENOUS BLOOD SPECIMENOrdering Facility: [facility] Address: [address] [place] [address] Performed By: #### 2 4344-4 ####[facility]ORATORYCLIA [id number] [address] O2 THERAPY Ventilator Normal [facility] Comment on above: Order Comment: Speci men Type: VENOUS BLOOD SPECIMENOrdering Facility: [facility] Address: [address] [place] [address] Performed By: #### 2 4344-4 ####[facility]ORATORYCLIA [id number] [address] Oxygen (BldV) [Partial pressure] 37 mm[Hg] Normal 35-45 [facility] Comment on above: Order Comment: Speci men Type: VENOUS BLOOD SPECIMENOrdering Facility: [facility] Address: [address] [address] Performed By: #### 2 4344-4 ####[facility]ORATORYCLIA [id number] [address] Oxygen adjusted to patient's actual temperature (BldV) [Partial pressure] 35.1 mmHg Normal 35-45 [facility] Comment on above: Order Comment: Speci men Type: VENOUS BLOOD SPECIMENOrdering Facility: [facility] Address: [address] [address] Performed By: #### 2 4344-4 ####[facility]ORATORYCLIA [id number] [address] Oxygen saturation in Blood 67.1 % Normal 60-85 [facility] Comment on above: Order Comment: Speci men Type: VENOUS BLOOD SPECIMENOrdering Facility: [facility] Address: [address] [place] [address] Performed By: #### 2 4344-4 ####[facility]ORATORYCLIA [id number] [address] OF [facility] Oxyhemoglobin (BldV) [Mass fraction] 66 % Normal 60-85 [facility] Comment on above: Order Comment: Speci men Type: VENOUS BLOOD SPECIMENOrdering Facility: [facility] Address: [address] [place] [address] Performed By: #### 2 4344-4 ####[facility]ORATORYCLIA [id number] [address] [place] pH (BldV) 7.42 [pH] Normal 7.32-7.42 [facility] Comment on above: Order Comment: Speci men Type: VENOUS BLOOD SPECIMENOrdering Facility: [facility] Address: [address] [place] [address] Performed By: #### 2 4344-4 ####[facility]ORATORYCLIA [id number] [address] pH adjusted to patient's actual temperature (BldV) 7.43 High 7.32-7.42 [facility] Comment on above: Order Comment: Speci men Type: VENOUS BLOOD SPECIMENOrdering Facility: [facility] Address: [address] [place] [address] Performed By: #### 2 4344-4 ####[facility]ORATORYCLIA [id number] [address] [place] Potassium [Moles/Vol] 4.0 mmol/L Normal 3.5-5.0 [facility] Comment on above: Order Comment: Speci men Type: VENOUS BLOOD SPECIMENOrdering Facility: [facility] Address: [address] [place] [address] Performed By: #### 2 4344-4 ####[facility]ORATORYCLIA [id number] [address] [place] Sodium [Moles/Vol] 146 mmol/L High 136-144 [facility] Comment on above: Order Comment: Speci men Type: VENOUS BLOOD SPECIMENOrdering Facility: [facility] Address: [address] [place] [address] Performed By: #### 2 4344-4 ####[facility]ORATORYCLIA [id number] [place] [address] [place] HEMOGLOBIN (HGB)on 2 Hemoglobin (Bld) [Mass/Vol] 9.2 g/dL Low 13.0-17.0 [facility] Comment on above: Order Comment: Speci men Type: BLOOD SPECIMENOrdering Facility: [facility] Address: [address] [place] [address] Performed By: #### H GB ####[facility]ORATORYCLIA [id number] [address] [place] IRON + TIBCon 06-18-2021 Iron [Mass/Vol] 27 ug/dL Low 41-186 [facility] Comment on above: Order Comment: Speci men Type: BLOOD SPECIMENOrdering Facility: [facility] Address: [address] [place] [address] Performed By: #### S ERFOL, IRON, FERR ####[facility]ORATORYCLIA [id number] [place] [address] [place] Iron binding capacity [Mass/Vol] 141 ug/dL Low 232-386 [facility] Comment on above: Order Comment: Speci men Type: BLOOD SPECIMENOrdering Facility: [facility] Address: [address] [place] [address] Performed By: #### S ERFOL, IRON, FERR ####[facility]ORATORYCLIA [id number] [address] Iron saturation [Mass fraction] 19 % Normal 15-57 [facility] Comment on above: Order Comment: Speci men Type: BLOOD SPECIMENOrdering Facility: [facility] Address: [address] [place] [address] Performed By: #### S ERFOL, IRON, FERR ####[facility]ORATORYCLIA [id number] [address] OF [facility] Magnesium SerPl-mCncon 06-18 Magnesium [Mass/Vol] 2.5 mg/dL High 1.7-2.3 [facility] Comment on above: Order Comment: Speci men Type: BLOOD SPECIMENOrdering Facility: [facility] Address: [address] [place] [address] Performed By: #### 2 4321-2, 25236-8, 2777-1 ####[facility]ATORYCLIA [id number] [address] OF [facility] NURSING PROGon 06-18-2021 NURSING PROG Normal [facility] Phosphate SerPl-mCncon 06-18 Phosphate [Mass/Vol] 3.0 mg/dL Normal 2.7-4.8 [facility] Comment on above: Order Comment: Speci men Type: BLOOD SPECIMENOrdering Facility: [facility] Address: [address] [place] [address] Performed By: #### 2 4321-2, 40377-2, 2777-1 ####[facility]ORATORYCLIA [id number] [address] [place] THERAPY NTon 06-18-2021 THERAPY NT Normal [facility] aPTT PPPon 06-18-2021 aPTT Coag (PPP) [Time] 43.0 s High 23.0-32.4 [facility] Comment on above: Order Comment: Speci men Type: BLOOD SPECIMENOrdering Facility: [facility] Address: [address] [place] [address] Performed By: #### 1 4979-9 ####[facility]ORATORYCLIA [id number] [place], [place] [id number] [place] [address] aPTT Coag (PPP) [Time] 60.6 s High 23.0-32.4 [facility] Comment on above: Order Comment: Speci men Type: BLOOD SPECIMENOrdering Facility: [facility] Address: [address] [place] [address] Performed By: #### 1 4979-9 ####[facility]ORATORYCLIA [id number] [address] aPTT Coag (PPP) [Time] 46.4 s High 23.0-32.4 [facility] Comment on above: Order Comment: Speci men Type: BLOOD SPECIMENOrdering Facility: [facility] Address: [address] [place] [address] Performed By: #### 1 4979-9 ####[facility]ORATORYCLIA [id number] [address] OF [facility] Basic metabolic 2000 panelon 06-17-2021 Anion gap [Moles/Vol] 7 mmol/L Low 9-18 [facility] Comment on above: Order Comment: Speci men Type: BLOOD SPECIMENOrdering Facility: [facility] Address: [address] [place] [address] Performed By: #### 2 951-2, 17259-8, 2777-, 91468-5 ####[facility]ORATORYCLIA [id number] [address] [place] Calcium [Mass/Vol] 8.1 mg/dL Low 8.5-10.2 [facility] Comment on above: Order Comment: Speci men Type: BLOOD SPECIMENOrdering Facility: [facility] Address: [address] [place] [address] Performed By: #### 2 951-2, 93491-5, 2777-1, 79137-1 ####[facility]ORATORYCLIA [id number] [address] Chloride [Moles/Vol] 113 mmol/L High 97-105 [facility] Comment on above: Order Comment: Speci men Type: BLOOD SPECIMENOrdering Facility: [facility] Address: [address] [place] [address] Performed By: #### 2 951-2, 78394-8, 2777-1, 24853-4 ####[facility]ORATORYCLIA [id number] [address] STATES [facility] CO2 [Moles/Vol] 25 mmol/L Normal 22-30 [facility] Comment on above: Order Comment: Speci men Type: BLOOD SPECIMENOrdering Facility: [facility] Address: [address] [place] [address] Performed By: #### 2 951-2, 14712-0, 2777-1, 70950-0 ####[facility]ORATORYCLIA [id number] [address] STATES [facility] Creatinine [Mass/Vol] 0.70 mg/dL Low 0.73-1.22 [facility] Comment on above: Order Comment: Speci men Type: BLOOD SPECIMENOrdering Facility: [facility] Address: [address] [place] [address] Performed By: #### 2 951-2, 50728-6, 2777-1, 91784-1 ####[facility]ORATORYCLIA [id number] [place] [address] [place] GFR/1.73 sq M.predicted MDRD (S/P/Bld) [Vol rate/Area] mL/min/{1.73_m2} Normal [facility] Comment on above: Order Comment: Speci men Type: BLOOD SPECIMENOrdering Facility: [facility] Address: [address] [place] [address] Result Comment: >60e GFR (Estimated GFR) Units [...] actual GFR. Performed By: #### 2 951-2, 27486-9, 2776-, 40682-5 ####[facility]ORATORYCLIA [id number] [place] [address] [place] Glucose [Mass/Vol] 122 mg/dL High 74-99 [facility] Comment on above: Order Comment: Shira feldman Type: BLOOD SPECIMENOrdering Facility: [facility] Address: [address] [place], [place] [address] Result Comment: The [place] [employer] (ADA) provides guidance for cutoff [...] Standards of Medical Care in Diabetes 2016, [place] [employer]. Diabetes Care. 2016.39(Suppl 1). Performed By: #### 2 951-2, , 2776-05, 06326-5 ####[facility]ORATORYCLIA [id number] [place] [address] [place] Potassium [Moles/Vol] 3.5 mmol/L Low 3.7-5.1 [facility] Comment on above: Order Comment: Shira feldman Type: BLOOD SPECIMENOrdering Facility: [facility] Address: [address] [place] [address] Performed By: #### 2 951-2, 83690-4, 2776-, 72872-7 ####[facility]ORATORYCLIA [id number] [place] [address] [place] Urea nitrogen [Mass/Vol] 27 mg/dL High 9-24 [facility] Comment on above: Order Comment: Speci men Type: BLOOD SPECIMENOrdering Facility: [facility] Address: [address] [place] [address] Performed By: #### 2 951-2, 67697-9, 2777-1, 90326-7 ####[facility] LABORATORYCLIA [id number] [address] [place] CASE MANAGEMon 06-17-2021 CASE MANAGEM Normal [facility] CBC panel Auto (Bld)on 06-17 Erythrocyte distribution width (RBC) [Ratio] 15.9 % High 11.5-15.0 [facility] Comment on above: Order Comment: Speci men Type: BLOOD SPECIMENOrdering Facility: [facility] Address: [address] [place] [address] Performed By: #### 5 8410-2 ####[facility] LABORATORYCLIA [id number] [address] [place] Hematocrit (Bld) [Volume fraction] 28.9 % Low 39.0-51.0 [facility] Comment on above: Order Comment: Speci men Type: BLOOD SPECIMENOrdering Facility: [facility] Address: [address] [place] [address] Performed By: #### 5 8410-2 ####[facility] LABORATORYCLIA [id number] [address] [place] Hemoglobin (Bld) [Mass/Vol] 8.8 g/dL Low 13.0-17.0 [facility] Comment on above: Order Comment: Speci men Type: BLOOD SPECIMENOrdering Facility: [facility] Address: [address] [place] [address] Performed By: #### 5 8410-2 ####[facility] LABORATORYCLIA [id number] [place] [address] [place] MCH (RBC) [Entitic mass] 28.4 pg Normal 26.0-34.0 [facility] Comment on above: Order Comment: Speci men Type: BLOOD SPECIMENOrdering Facility: [facility] Address: [address] [place] [address] Performed By: #### 5 8410-2 ####[facility] LABORATORYCLIA [id number] [address] [place] [facility] MCHC (RBC) [Mass/Vol] 30.4 g/dL Low 30.5-36.0 [facility] Comment on above: Order Comment: Speci men Type: BLOOD SPECIMENOrdering Facility: [facility] Address: [address] [place] [address] Performed By: #### 5 8410-2 ####[facility] LABORATORYCLIA [id number] [address] [place] MCV (RBC) [Entitic vol] 93.2 fL Normal 80.0-100.0 [facility] Comment on above: Order Comment: Speci men Type: BLOOD SPECIMENOrdering Facility: [facility] Address: [address] [place] [address] Performed By: #### 5 8410-2 ####[facility] LABORATORYCLIA [id number] [address] Nucleated RBC (Bld) [#/Vol] 10*3/uL Normal <0.01 [facility] Comment on above: Order Comment: Speci men Type: BLOOD SPECIMENOrdering Facility: [facility] Address: [address] [place] [address] Performed By: #### 5 8410-2 ####[facility] LABORATORYCLIA [id number] [address] Platelet mean volume (Bld) [Entitic vol] 11.9 fL Normal 9.0-12.7 [facility] Comment on above: Order Comment: Speci men Type: BLOOD SPECIMENOrdering Facility: [facility] Address: [address] [place] [address] Performed By: #### 5 8410-2 ####[facility] LABORATORYCLIA [id number] [address] Platelets (Bld) [#/Vol] 257 10*3/uL Normal 150-400 [facility] Comment on above: Order Comment: Speci men Type: BLOOD SPECIMENOrdering Facility: [facility] Address: [address] [place] [address] Performed By: #### 5 8410-2 ####[facility] LABORATORYCLIA [id number] [address] RBC (Bld) [#/Vol] 3.10 10*6/uL Low 4.20-6.00 [facility] Comment on above: Order Comment: Speci men Type: BLOOD SPECIMENOrdering Facility: [facility] Address: [address] [place] [address] Performed By: #### 5 8410-2 ####[facility] [id number] [address] WBC (Bld) [#/Vol] 10.54 10*3/uL Normal 3.70-11.00 [facility] Comment on above: Order Comment: Speci men Type: BLOOD SPECIMENOrdering Facility: [facility] Address: [address] [place] [address] Performed By: #### 5 8410-2 ####[facility] LABORATORYCLIA [id number] [address] HEMOGLOBIN (HGB)on 2 Hemoglobin (Bld) [Mass/Vol] 8.8 g/dL Low 13.0-17.0 [facility] Comment on above: Order Comment: Speci men Type: BLOOD SPECIMENOrdering Facility: [facility] Address: [address] [place] [address] Performed By: #### H GB ####[facility] LABORATORYCLIA [id number] [address] Magnesium SerPl-mCncon 06-17 Magnesium [Mass/Vol] 2.5 mg/dL High 1.7-2.3 [facility] Comment on above: Order Comment: Speci men Type: BLOOD SPECIMENOrdering Facility: [facility] Address: [address] [place] [address] Performed By: #### 2 951-2, , 2776-05, 52118-6 ####[facility] LABORATORYCLIA [id number] [address] OF [facility] NURSING PROGon 06-17-2021 NURSING PROG Normal [facility] NURSING PROG Normal [facility] NURSING PROG Normal [facility] Phosphate SerPl-mCncon 06-17 Phosphate [Mass/Vol] 1.9 mg/dL Low 2.7-4.8 [facility] Comment on above: Order Comment: Speci men Type: BLOOD SPECIMENOrdering Facility: [facility] Address: [address] [place] [address] Performed By: #### 2 951-2, , 2776-05, ####[facility] LABORATORYCLIA [id number] [address] [place] Sodium SerPl-sCncon 06-17-19 22 Sodium [Moles/Vol] 144 mmol/L Normal 136-144 [facility] Comment on above: Order Comment: Speci men Type: BLOOD SPECIMENOrdering Facility: [facility] Address: [address] [place] [address] Performed By: #### 2 951-2 ####[facility] LABORATORYCLIA [id number] [address] [place] Sodium [Moles/Vol] 145 mmol/L High 136-144 [facility] Comment on above: Order Comment: Speci men Type: BLOOD SPECIMENOrdering Facility: [facility] Address: [address] [place] [address] Performed By: #### 2 951-2, , 2776-05, 80538-8 ####[facility] LABORATORYCLIA [id number] [address] [place] aPTT PPPon 06-17-2021 aPTT Coag (PPP) [Time] 55.8 s High 23.0-32.4 [facility] Comment on above: Order Comment: Speci men Type: BLOOD SPECIMENOrdering Facility: [facility] Address: [address] [place] [address] Performed By: #### 1 4979-9 ####[facility] LABORATORYCLIA [id number] [address] [place] ARTERIAL BLOOD GASESon 06-16 Base excess Calc (Bld) [Moles/Vol] 3 mmol/L High 0-2 [facility] Comment on above: Order Comment: Speci men Type: ARTERIAL BLOOD SPECIMENOrdering Facility: [facility] Address: [address] [place] [address] Performed By: #### A LLBG ####[facility] LABORATORYCLIA [id number] [address] [place] Body temperature 99.14 [degF] Normal [facility] Comment on above: Order Comment: Speci men Type: ARTERIAL BLOOD SPECIMENOrdering Facility: [facility] Address: [address] [place] [address] Performed By: #### A LLBG ####[facility] LABORATORYCLIA [id number] [address] [place] CALCIUM IONIZED, PH CORRECTED 1.21 mmol/L Normal 1.08-1.30 [facility] Comment on above: Order Comment: Speci men Type: ARTERIAL BLOOD SPECIMENOrdering Facility: [facility] Address: [address] [place] [address] Performed By: #### A LLBG ####[facility] LABORATORYCLIA [id number] [place] [address] [place] Calcium.ionized (BldV) [Mass/Vol] 1.17 mmol/L Normal 1.08-1.30 [facility] Comment on above: Order Comment: Speci men Type: ARTERIAL BLOOD SPECIMENOrdering Facility: [facility] Address: [address] [place] [address] Performed By: #### A LLBG ####[facility] LABORATORYCLIA [id number] [address] [place] Carboxyhemoglobin (BldA) [Mass fraction] 1.4 % Normal 0.0-2.0 [facility] Comment on above: Order Comment: Speci men Type: ARTERIAL BLOOD SPECIMENOrdering Facility: [facility] Address: [address] [place] [address] Result Comment: Carb oxyhemoglobin Reference Range for Smokers: 2.0-8.0% Performed By: #### A LLBG ####[facility] LABORATORYCLIA [id number] [address] [place] [facility] CO2 (Bld) [Partial pressure] 38 mm Hg Normal 36-46 [facility] Comment on above: Order Comment: Speci men Type: ARTERIAL BLOOD SPECIMENOrdering Facility: [facility] Address: [address] [place] [address] Performed By: #### A LLBG ####[facility] LABORATORYCLIA [id number] [address] CO2 [Moles/Vol] 24.5 mmol/L Normal 22-28 [facility] Comment on above: Order Comment: Speci men Type: ARTERIAL BLOOD SPECIMENOrdering Facility: [facility] Address: [address] [place] [address] Performed By: #### A LLBG ####[facility] LABORATORYCLIA [id number] [address] [place] CO2 adjusted to patient's actual temperature (Bld) [Partial pressure] 38 mmHg Normal 36-46 [facility] Comment on above: Order Comment: Speci men Type: ARTERIAL BLOOD SPECIMENOrdering Facility: [facility] Address: [address] [place] [address] Performed By: #### A LLBG ####[facility] LABORATORYCLIA [id number] [address] [place] Glucose [Mass/Vol] 147 mg/dL High 60-105 [facility] Comment on above: Order Comment: Speci men Type: ARTERIAL BLOOD SPECIMENOrdering Facility: [facility] Address: [address] [place] [address] Performed By: #### A LLBG ####[facility] LABORATORYCLIA [id number] [place] [address] [place] HCO3 (Bld) [Moles/Vol] 27 mmol/L High 22-26 [facility] Comment on above: Order Comment: Speci men Type: ARTERIAL BLOOD SPECIMENOrdering Facility: [facility] Address: [address] [place] [address] Performed By: #### A LLBG ####[facility] LABORATORYCLIA [id number] [address] [place] Hematocrit (Bld) [Volume fraction] 31.8 % Low 39.0-51.0 [facility] Comment on above: Order Comment: Speci men Type: ARTERIAL BLOOD SPECIMENOrdering Facility: [facility] Address: [address] [place] [address] Performed By: #### A LLBG ####[facility] LABORATORYCLIA [id number] [address] [place] Hemoglobin (Bld) [Mass/Vol] 10.3 g/dL Low 13.0-17.0 [facility] Comment on above: Order Comment: Speci men Type: ARTERIAL BLOOD SPECIMENOrdering Facility: [facility] Address: [address] [place] [address] Performed By: #### A LLBG ####[facility] LABORATORYCLIA [id number] [address] [place] Methemoglobin (Bld) [Mass fraction] 1.0 % Normal 0.0-1.5 [facility] Comment on above: Order Comment: Speci men Type: ARTERIAL BLOOD SPECIMENOrdering Facility: [facility] Address: [address] [address] Performed By: #### A LLBG ####[facility]ORATORYCLIA [id number] [address] O2 THERAPY Ventilator Normal [facility] Comment on above: Order Comment: Speci men Type: ARTERIAL BLOOD SPECIMENOrdering Facility: [facility] Address: [address] [place] [address] Performed By: #### A LLBG ####[facility]ORATORYCLIA [id number] [address] [place] Oxygen (Bld) [Partial pressure] 78 mm Hg Low 85-95 [facility] Comment on above: Order Comment: Speci men Type: ARTERIAL BLOOD SPECIMENOrdering Facility: [facility] Address: [address] [place] [address] Performed By: #### A LLBG ####[facility] LABORATORYCLIA [id number] [address] Oxygen adjusted to patient's actual temperature (Bld) [Partial pressure] 79.7 mmHg Low 85-95 [facility] Comment on above: Order Comment: Speci men Type: ARTERIAL BLOOD SPECIMENOrdering Facility: [facility] Address: [address] [place] [address] Performed By: #### A LLBG ####[facility] LABORATORYCLIA [id number] [address] [place] OXYGEN SATURATION, ARTERIAL 96 % Normal 95-98 [facility] Comment on above: Order Comment: Speci men Type: ARTERIAL BLOOD SPECIMENOrdering Facility: [facility] Address: [address] [place] [address] Performed By: #### A LLBG ####[facility] LABORATORYCLIA [id number] [address] Oxyhemoglobin (BldA) [Mass fraction] 94 % Low 95-98 [facility] Comment on above: Order Comment: Speci men Type: ARTERIAL BLOOD SPECIMENOrdering Facility: [facility] Address: [address] [address] Performed By: #### A LLBG ####[facility] LABORATORYCLIA [id number] [address] [place] pH (Bld) 7.47 [pH] High 7.35-7.45 [facility] Comment on above: Order Comment: Speci men Type: ARTERIAL BLOOD SPECIMENOrdering Facility: [facility] Address: [address] [place] [address] Performed By: #### A LLBG ####[facility] LABORATORYCLIA [id number] [address] [place] pH adjusted to patient's actual temperature (Bld) 7.46 High 7.35-7.45 [facility] Comment on above: Order Comment: Speci men Type: ARTERIAL BLOOD SPECIMENOrdering Facility: [facility] Address: [address] [place] [address] Performed By: #### A LLBG ####[facility] LABORATORYCLIA [id number] [address] [place] Potassium [Moles/Vol] 3.7 mmol/L Normal 3.5-5.0 [facility] Comment on above: Order Comment: Speci men Type: ARTERIAL BLOOD SPECIMENOrdering Facility: [facility] Address: [address] [place] [address] Performed By: #### A LLBG ####[facility] LABORATORYCLIA [id number] [place] [address] [place] Sodium [Moles/Vol] 155 mmol/L High 136-144 [facility] Comment on above: Order Comment: Speci men Type: ARTERIAL BLOOD SPECIMENOrdering Facility: [facility] Address: [address] [place] [address] Performed By: #### A LLBG ####[facility] LABORATORYCLIA [id number] [place] [address] [place] Bacteria Spec Resp Culton Bacteria identified Respiratory culture Nom (Unsp spec) CULTURE, RESPIRATORY: Rare Normal respiratory chris present ORGANISM ID: 1 Few Yeast, not cryptococcus neoformans GRAM STAIN: No organisms seen Few Polymorphonuclear leukocytes Few Epithelial cells Abnormal [facility] Comment on above: Performed By: #### 3 2355-0 ####[facility] LABORATORYCLIA [id number] [place] [address] [place] Basic metabolic 2000 panelon 06-16-2021 Anion gap [Moles/Vol] 9 mmol/L Normal 9-18 [facility] Comment on above: Order Comment: Speci men Type: BLOOD SPECIMENOrdering Facility: [facility] Address: [address] [place] [address] Performed By: #### 2 4321-2 ####[facility] LABORATORYCLIA [id number] [place] [address] [place] Calcium [Mass/Vol] 8.4 mg/dL Low 8.5-10.2 [facility] Comment on above: Order Comment: Speci men Type: BLOOD SPECIMENOrdering Facility: [facility] Address: [address] [place] [address] Performed By: #### 2 4321-2 ####[facility] LABORATORYCLIA [id number] [place] [address] [place] Chloride [Moles/Vol] 120 mmol/L High 97-105 [facility] Comment on above: Order Comment: Speci men Type: BLOOD SPECIMENOrdering Facility: [facility] Address: [address] [place] [address] Performed By: #### 2 4321-2 ####[facility] LABORATORYCLIA [id number] [place] [address] [place] CO2 [Moles/Vol] 27 mmol/L Normal 22-30 [facility] Comment on above: Order Comment: Speci men Type: BLOOD SPECIMENOrdering Facility: [facility] Address: [address] [place] [address] Performed By: #### 2 4321-2 ####[facility] LABORATORYCLIA [id number] [place] [address] [place] Creatinine [Mass/Vol] 0.75 mg/dL Normal 0.73-1.22 [facility] Comment on above: Order Comment: Johncara feldman Type: BLOOD SPECIMENOrdering Facility: [facility] Address: [address] [phone] Performed By: #### 2 4321-2 ####[facility] LABORATORYCLIA [id number] [place] [address] [place] GFR/1.73 sq M.predicted MDRD (S/P/Bld) [Vol rate/Area] mL/min/{1.73_m2} Normal [facility] Comment on above: Order Comment: Johncara feldman Type: BLOOD SPECIMENOrdering Facility: [facility] Address: [address] [place], [place] [phone] Result Comment: >60e GFR (Estimated GFR) Units [...] actual GFR. Performed By: #### 2 4321-2 ####[facility] LABORATORYCLIA [id number] [place] [address] [place] Glucose [Mass/Vol] 160 mg/dL High 74-99 [facility] Comment on above: Order Comment: Johncara feldman Type: BLOOD SPECIMENOrdering Facility: [facility] Address: [address] [phone] Result Comment: The [place] [employer] (ADA) provides guidance for cutoff [...] Standards of Medical Care in Diabetes 2016, [place] [employer]. Diabetes Care. 2016.39(Suppl 1). Performed By: #### 2 4321-2 ####[facility] LABORATORYCLIA [id number] [address] STATES OF [facility] Potassium [Moles/Vol] 3.1 mmol/L Low 3.7-5.1 [facility] Comment on above: Order Comment: Speci men Type: BLOOD SPECIMENOrdering Facility: [facility] Address: [address] [place] [address] Performed By: #### 2 4321-2 ####[facility] LABORATORYCLIA [id number] [address] Sodium [Moles/Vol] 156 mmol/L High 136-144 [facility] Comment on above: Order Comment: Speci men Type: BLOOD SPECIMENOrdering Facility: [facility] Address: [address] [place] [address] Performed By: #### 2 4321-2 ####[facility] LABORATORYCLIA [id number] [address] [place] [facility] Urea nitrogen [Mass/Vol] 33 mg/dL High 9-24 [facility] Comment on above: Order Comment: Speci men Type: BLOOD SPECIMENOrdering Facility: [facility] Address: [address] [place] [address] Performed By: #### 2 4321-2 ####[facility] LABORATORYCLIA [id number] [address] [place] CASE MANAGEMon 06-16-2021 CASE MANAGEM Normal [facility] CBC panel Auto (Bld)on 06-16 Erythrocyte distribution width (RBC) [Ratio] 15.9 % High 11.5-15.0 [facility] Comment on above: Order Comment: Speci men Type: BLOOD SPECIMENOrdering Facility: [facility] Address: [address] [place] [address] Performed By: #### 5 8410-2 ####[facility] LABORATORYCLIA [id number] [address] Hematocrit (Bld) [Volume fraction] 34.6 % Low 39.0-51.0 [facility] Comment on above: Order Comment: Speci men Type: BLOOD SPECIMENOrdering Facility: [facility] Address: [address] [place] [address] Performed By: #### 5 8410-2 ####[facility] LABORATORYCLIA [id number] [address] Hemoglobin (Bld) [Mass/Vol] 10.2 g/dL Low 13.0-17.0 [facility] Comment on above: Order Comment: Speci men Type: BLOOD SPECIMENOrdering Facility: [facility] Address: [address] [place] [address] Performed By: #### 5 8410-2 ####[facility] LABORATORYCLIA [id number] [address] MCH (RBC) [Entitic mass] 28.5 pg Normal 26.0-34.0 [facility] Comment on above: Order Comment: Speci men Type: BLOOD SPECIMENOrdering Facility: [facility] Address: [address] [place] [address] Performed By: #### 5 8410-2 ####[facility] LABORATORYCLIA [id number] [address] [place] MCHC (RBC) [Mass/Vol] 29.5 g/dL Low 30.5-36.0 [facility] Comment on above: Order Comment: Speci men Type: BLOOD SPECIMENOrdering Facility: [facility] Address: [address] [place] [address] Performed By: #### 5 8410-2 ####[facility] LABORATORYCLIA [id number] [address] MCV (RBC) [Entitic vol] 96.6 fL Normal 80.0-100.0 [facility] Comment on above: Order Comment: Speci men Type: BLOOD SPECIMENOrdering Facility: [facility] Address: [address] [place] [address] Performed By: #### 5 8410-2 ####[facility] LABORATORYCLIA [id number] [address] Nucleated RBC (Bld) [#/Vol] 10*3/uL Normal <0.01 [facility] Comment on above: Order Comment: Speci men Type: BLOOD SPECIMENOrdering Facility: [facility] Address: [address] [place] [address] Performed By: #### 5 8410-2 ####[facility] LABORATORYCLIA [id number] [address] Platelet mean volume (Bld) [Entitic vol] 11.9 fL Normal 9.0-12.7 [facility] Comment on above: Order Comment: Speci men Type: BLOOD SPECIMENOrdering Facility: [facility] Address: [address] [place] [address] Performed By: #### 5 8410-2 ####[facility] LABORATORYCLIA [id number] [address] Platelets (Bld) [#/Vol] 269 10*3/uL Normal 150-400 [facility] Comment on above: Order Comment: Speci men Type: BLOOD SPECIMENOrdering Facility: [facility] Address: [address] [place] [address] Performed By: #### 5 8410-2 ####[facility] LABORATORYCLIA [id number] [address] RBC (Bld) [#/Vol] 3.58 10*6/uL Low 4.20-6.00 [facility] Comment on above: Order Comment: Speci men Type: BLOOD SPECIMENOrdering Facility: [facility] Address: [address] [place] [address] Performed By: #### 5 8410-2 ####[facility] LABORATORYCLIA [id number] [place] [address] [place] WBC (Bld) [#/Vol] 13.11 10*3/uL High 3.70-11.00 [facility] Comment on above: Order Comment: Speci men Type: BLOOD SPECIMENOrdering Facility: [facility] Address: [address] [place] [address] Performed By: #### 5 8410-2 ####[facility] LABORATORYCLIA [id number] [address] [place] CONSULTon 06-16-2021 CONSULT Normal [facility] CONSULT PROGon 06-16-2021 CONSULT PROG Normal [facility] CT BRAIN WO IVCONon 06-16-[address] BRAIN WO IVCON Normal [facility] HEMOGLOBIN (HGB)on 2 Hemoglobin (Bld) [Mass/Vol] 8.9 g/dL Low 13.0-17.0 [facility] Comment on above: Order Comment: Speci men Type: BLOOD SPECIMENOrdering Facility: [facility] Address: [address] [place] [address] Performed By: #### H GB ####[facility] LABORATORYCLIA [id number] [place] [address] [place] Hemoglobin (Bld) [Mass/Vol] 9.6 g/dL Low 13.0-17.0 [facility] Comment on above: Order Comment: Speci men Type: BLOOD SPECIMENOrdering Facility: [facility] Address: [address] [place] [address] Performed By: #### H GB ####[facility] LABORATORYCLIA [id number] [place] [address] [place] Magnesium SerPl-mCncon 06-16 Magnesium [Mass/Vol] 2.7 mg/dL High 1.7-2.3 [facility] Comment on above: Order Comment: Speci men Type: BLOOD SPECIMENOrdering Facility: [facility] Address: [address] [place] [address] Performed By: #### 1 9123-9 ####[facility] LABORATORYCLIA [id number] [place] [address] [place] NURSING PROGon 06-16-2021 NURSING PROG Normal [facility] NUTRITIONon 06-16-2021 NUTRITION Normal [facility] Phosphate SerPl-mCncon 06-16 Phosphate [Mass/Vol] 1.4 mg/dL Low 2.7-4.8 [facility] Comment on above: Order Comment: Speci men Type: BLOOD SPECIMENOrdering Facility: [facility] Address: [address] [place] [address] Performed By: #### 2 777-1 ####[facility] LABORATORYCLIA [id number] [address] [place] STAPH AUREUS PCRon S. aureus and MRSA panel MEGAN+probe (Nose) Normal Negative [facility] Comment on above: Order Comment: Speci men Type: SWAB OF INTERNAL NOSEOrdering Facility: [facility] Address: [address] [place] [address] Result Comment: Nega tive for Staphylococcus aureus by PCR.Negative for MRSA by PCR Performed By: #### S APCR ####[facility] LABORATORYCLIA [id number] [place] [address] [place] Sodium SerPl-sCncon 06-16-19 22 Sodium [Moles/Vol] 150 mmol/L High 136-144 [facility] Comment on above: Order Comment: Speci men Type: BLOOD SPECIMENOrdering Facility: [facility] Address: [address] [place] [address] Performed By: #### 2 951-2 ####[facility] LABORATORYCLIA [id number] [place] [address] [place] Sodium [Moles/Vol] 153 mmol/L High 136-144 [facility] Comment on above: Order Comment: Speci men Type: BLOOD SPECIMENOrdering Facility: [facility] Address: [address] [place] [address] Performed By: #### 2 951-2 ####[facility] LABORATORYCLIA [id number] [address] STATES OF [facility] Sodium [Moles/Vol] 158 mmol/L High 136-144 [facility] Comment on above: Order Comment: Speci men Type: BLOOD SPECIMENOrdering Facility: [facility] Address: [address] [place] [address] Performed By: #### 2 951-2 ####[facility] LABORATORYCLIA [id number] [place] [address] [place] aPTT PPPon 06-16-2021 aPTT Coag (PPP) [Time] 61.8 s High 23.0-32.4 [facility] Comment on above: Order Comment: Speci men Type: BLOOD SPECIMENOrdering Facility: [facility] Address: [address] [place] [address] Performed By: #### 1 4979-9 ####[facility]ORATORYCLIA [id number] [address] [place] [facility] aPTT Coag (PPP) [Time] 57.6 s High 23.0-32.4 [facility] Comment on above: Order Comment: Speci men Type: BLOOD SPECIMENOrdering Facility: [facility] Address: [address] [place] [address] Performed By: #### 1 4979-9 ####[facility] LABORATORYCLIA [id number] [place] [address] [place] ALLIED HEALTHon 06-15-2021 ALLIED HEALTH Normal [facility] ALLIED HEALTH Normal [facility] ALLIED HEALTH Normal [facility] ALLIED HEALTH Normal [facility] ARTERIAL BLOOD GASESon 06-15 Base excess Calc (Bld) [Moles/Vol] 3 mmol/L High 0-2 [facility] Comment on above: Order Comment: Speci men Type: ARTERIAL BLOOD SPECIMENOrdering Facility: [facility] Address: [address] [place] [address] Performed By: #### A LLBG ####[facility] LABORATORYCLIA [id number] [address] Body temperature 99.5 [degF] Normal [facility] Comment on above: Order Comment: Speci men Type: ARTERIAL BLOOD SPECIMENOrdering Facility: [facility] Address: [address] [place] [address] Performed By: #### A LLBG ####[facility] LABORATORYCLIA [id number] [address] [place] [facility] CALCIUM IONIZED, PH CORRECTED 1.34 mmol/L High 1.08-1.30 [facility] Comment on above: Order Comment: Speci men Type: ARTERIAL BLOOD SPECIMENOrdering Facility: [facility] Address: [address] [place] [address] Performed By: #### A LLBG ####[facility]ORATORYCLIA [id number] [address] Calcium.ionized (BldV) [Mass/Vol] 1.29 mmol/L Normal 1.08-1.30 [facility] Comment on above: Order Comment: Speci men Type: ARTERIAL BLOOD SPECIMENOrdering Facility: [facility] Address: [address] [place] [address] Performed By: #### A LLBG ####[facility]ORATORYCLIA [id number] [address] Carboxyhemoglobin (BldA) [Mass fraction] 1.3 % Normal 0.0-2.0 [facility] Comment on above: Order Comment: Speci men Type: ARTERIAL BLOOD SPECIMENOrdering Facility: [facility] Address: [address] [place] [address] Result Comment: Carb oxyhemoglobin Reference Range for Smokers: 2.0-8.0% Performed By: #### A LLBG ####[facility]ORATORYCLIA [id number] [address] CO2 (Bld) [Partial pressure] 37 mm Hg Normal 36-46 [facility] Comment on above: Order Comment: Speci men Type: ARTERIAL BLOOD SPECIMENOrdering Facility: [facility] Address: [address] [place] [address] Performed By: #### A LLBG ####[facility] LABORATORYCLIA [id number] [address] [place] CO2 [Moles/Vol] 24.6 mmol/L Normal 22-28 [facility] Comment on above: Order Comment: Speci men Type: ARTERIAL BLOOD SPECIMENOrdering Facility: [facility] Address: [address] [place] [address] Performed By: #### A LLBG ####[facility]ORATORYCLIA [id number] [address] [place] CO2 adjusted to patient's actual temperature (Bld) [Partial pressure] 38 mmHg Normal 36-46 [facility] Comment on above: Order Comment: Speci men Type: ARTERIAL BLOOD SPECIMENOrdering Facility: [facility] Address: [address] [place] [address] Performed By: #### A LLBG ####[facility] LABORATORYCLIA [id number] [address] [place] FIO2 100 % Normal [facility] Comment on above: Order Comment: Speci men Type: ARTERIAL BLOOD SPECIMENOrdering Facility: [facility] Address: [address] [place] [address] Performed By: #### A LLBG ####[facility]ORATORYCLIA [id number] [address] [place] Glucose [Mass/Vol] 159 mg/dL High 60-105 [facility] Comment on above: Order Comment: Speci men Type: ARTERIAL BLOOD SPECIMENOrdering Facility: [facility] Address: [address] [place] [address] Performed By: #### A LLBG ####[facility]ATORYCLIA [id number] [address] OF [facility] HCO3 (Bld) [Moles/Vol] 27 mmol/L High 22-26 [facility] Comment on above: Order Comment: Speci men Type: ARTERIAL BLOOD SPECIMENOrdering Facility: [facility] Address: [address] [place] [address] Performed By: #### A LLBG ####[facility]ORATORYCLIA [id number] [address] [place] Hematocrit (Bld) [Volume fraction] 31.0 % Low 39.0-51.0 [facility] Comment on above: Order Comment: Speci men Type: ARTERIAL BLOOD SPECIMENOrdering Facility: [facility] Address: [address] [place] [address] Performed By: #### A LLBG ####[facility]ORATORYCLIA [id number] [address] [place] [facility] Hemoglobin (Bld) [Mass/Vol] 10.0 g/dL Low 13.0-17.0 [facility] Comment on above: Order Comment: Speci men Type: ARTERIAL BLOOD SPECIMENOrdering Facility: [facility] Address: [address] [place] [address] Performed By: #### A LLBG ####[facility]ORATORYCLIA [id number] [address] [place] Methemoglobin (Bld) [Mass fraction] % Normal 0.0-1.5 [facility] Comment on above: Order Comment: Speci men Type: ARTERIAL BLOOD SPECIMENOrdering Facility: [facility] Address: [address] [place] [address] Performed By: #### A LLBG ####[facility]ORATORYCLIA [id number] [address] O2 THERAPY Ventilator Normal [facility] Comment on above: Order Comment: Speci men Type: ARTERIAL BLOOD SPECIMENOrdering Facility: [facility] Address: [address] [place] [address] Performed By: #### A LLBG ####[facility]ORATORYCLIA [id number] [address] [place] Oxygen (Bld) [Partial pressure] 279 mm Hg High 85-95 [facility] Comment on above: Order Comment: Speci men Type: ARTERIAL BLOOD SPECIMENOrdering Facility: [facility] Address: [address] [place] [address] Performed By: #### A LLBG ####[facility]ORATORYCLIA [id number] [address] [place] Oxygen adjusted to patient's actual temperature (Bld) [Partial pressure] 281 mmHg High 85-95 [facility] Comment on above: Order Comment: Speci men Type: ARTERIAL BLOOD SPECIMENOrdering Facility: [facility] Address: [address] [place] [address] Performed By: #### A LLBG ####[facility]ORATORYCLIA [id number] [address] [place] OXYGEN SATURATION, ARTERIAL 100 % High 95-98 [facility] Comment on above: Order Comment: Speci men Type: ARTERIAL BLOOD SPECIMENOrdering Facility: [facility] Address: [address] [place] [address] Performed By: #### A LLBG ####[facility]ATORYCLIA [id number] [address] [place] Oxyhemoglobin (BldA) [Mass fraction] 98 % Normal 95-98 [facility] Comment on above: Order Comment: Speci men Type: ARTERIAL BLOOD SPECIMENOrdering Facility: [facility] Address: [address] [place] [address] Performed By: #### A LLBG ####[facility]ATORYCLIA [id number] [address] [place] pH (Bld) 7.47 [pH] High 7.35-7.45 [facility] Comment on above: Order Comment: Speci men Type: ARTERIAL BLOOD SPECIMENOrdering Facility: [facility] Address: [address] [place] [address] Performed By: #### A LLBG ####[facility]ATORYCLIA [id number] [address] pH adjusted to patient's actual temperature (Bld) 7.46 High 7.35-7.45 [facility] Comment on above: Order Comment: Speci men Type: ARTERIAL BLOOD SPECIMENOrdering Facility: [facility] Address: [address] [place] [address] Performed By: #### A LLBG ####[facility]ORATORYCLIA [id number] [address] [place] Potassium [Moles/Vol] 3.6 mmol/L Normal 3.5-5.0 [facility] Comment on above: Order Comment: Speci men Type: ARTERIAL BLOOD SPECIMENOrdering Facility: [facility] Address: [address] [place] [address] Performed By: #### A LLBG ####[facility]ORATORYCLIA [id number] [address] [place] Sodium [Moles/Vol] 162 mmol/L High 136-144 [facility] Comment on above: Order Comment: Speci men Type: ARTERIAL BLOOD SPECIMENOrdering Facility: [facility] Address: [address] [place] [address] Performed By: #### A LLBG ####[facility]ATORYCLIA [id number] [address] [place] Base excess Calc (Bld) [Moles/Vol] 4 mmol/L High 0-2 [facility] Comment on above: Order Comment: Speci men Type: ARTERIAL BLOOD SPECIMENOrdering Facility: [facility] Address: [address] [place] [address] Performed By: #### A LLBG ####[facility]ORATORYCLIA [id number] [address] [place] Body temperature 100.58 [degF] Normal [facility] Comment on above: Order Comment: Speci men Type: ARTERIAL BLOOD SPECIMENOrdering Facility: [facility] Address: [address] [place] [address] Performed By: #### A LLBG ####[facility]ORATORYCLIA [id number] [address] [place] [facility] CALCIUM IONIZED, PH CORRECTED 1.34 mmol/L High 1.08-1.30 [facility] Comment on above: Order Comment: Speci men Type: ARTERIAL BLOOD SPECIMENOrdering Facility: [facility] Address: [address] [place] [address] Performed By: #### A LLBG ####[facility]ATORYCLIA [id number] [address] [place] Calcium.ionized (BldV) [Mass/Vol] 1.33 mmol/L High 1.08-1.30 [facility] Comment on above: Order Comment: Speci men Type: ARTERIAL BLOOD SPECIMENOrdering Facility: [facility] Address: [address] [place] [address] Performed By: #### A LLBG ####[facility]ORATORYCLIA [id number] [address] [place] Carboxyhemoglobin (BldA) [Mass fraction] 1.5 % Normal 0.0-2.0 [facility] Comment on above: Order Comment: Speci men Type: ARTERIAL BLOOD SPECIMENOrdering Facility: [facility] Address: [address] [place] [address] Result Comment: Carb oxyhemoglobin Reference Range for Smokers: 2.0-8.0% Performed By: #### A LLBG ####[facility]ATORYCLIA [id number] [address] [place] CO2 (Bld) [Partial pressure] 46 mm Hg Normal 36-46 [facility] Comment on above: Order Comment: Speci men Type: ARTERIAL BLOOD SPECIMENOrdering Facility: [facility] Address: [address] [place] [address] Performed By: #### A LLBG ####[facility]ORATORYCLIA [id number] [address] [place] CO2 [Moles/Vol] 26.4 mmol/L Normal 22-28 [facility] Comment on above: Order Comment: Speci men Type: ARTERIAL BLOOD SPECIMENOrdering Facility: [facility] Address: [address] [place] [address] Performed By: #### A LLBG ####[facility]ORATORYCLIA [id number] [address] [place] CO2 adjusted to patient's actual temperature (Bld) [Partial pressure] 48 mmHg High 36-46 [facility] Comment on above: Order Comment: Speci men Type: ARTERIAL BLOOD SPECIMENOrdering Facility: [facility] Address: [address] [place] [address] Performed By: #### A LLBG ####[facility]ORATORYCLIA [id number] [address] [place] FIO2 100 % Normal [facility] Comment on above: Order Comment: Speci men Type: ARTERIAL BLOOD SPECIMENOrdering Facility: [facility] Address: [address] [place] [address] Performed By: #### A LLBG ####[facility]ORATORYCLIA [id number] [address] [place] Glucose [Mass/Vol] 132 mg/dL High 60-105 [facility] Comment on above: Order Comment: Speci men Type: ARTERIAL BLOOD SPECIMENOrdering Facility: [facility] Address: [address] [place] [address] Performed By: #### A LLBG ####[facility]ORATORYCLIA [id number] [place] [address] [place] HCO3 (Bld) [Moles/Vol] 29 mmol/L High 22-26 [facility] Comment on above: Order Comment: Speci men Type: ARTERIAL BLOOD SPECIMENOrdering Facility: [facility] Address: [address] [place] [address] Performed By: #### A LLBG ####[facility]ORATORYCLIA [id number] [address] [place] Hematocrit (Bld) [Volume fraction] 32.3 % Low 39.0-51.0 [facility] Comment on above: Order Comment: Speci men Type: ARTERIAL BLOOD SPECIMENOrdering Facility: [facility] Address: [address] [place] [address] Performed By: #### A LLBG ####[facility]ORATORYCLIA [id number] [address] [place] Hemoglobin (Bld) [Mass/Vol] 10.4 g/dL Low 13.0-17.0 [facility] Comment on above: Order Comment: Speci men Type: ARTERIAL BLOOD SPECIMENOrdering Facility: [facility] Address: [address] [place] [address] Performed By: #### A LLBG ####[facility]ORATORYCLIA [id number] [address] [place] Methemoglobin (Bld) [Mass fraction] % Normal 0.0-1.5 [facility] Comment on above: Order Comment: Speci men Type: ARTERIAL BLOOD SPECIMENOrdering Facility: [facility] Address: [address] [place] [address] Performed By: #### A LLBG ####[facility]ORATORYCLIA [id number] [address] O2 THERAPY NR=Non-Rebreather Mask Normal [facility] Comment on above: Order Comment: Speci men Type: ARTERIAL BLOOD SPECIMENOrdering Facility: [facility] Address: [address] [place] [address] Performed By: #### A LLBG ####[facility]ORATORYCLIA [id number] [address] Oxygen (Bld) [Partial pressure] 130 mm Hg High 85-95 [facility] Comment on above: Order Comment: Speci men Type: ARTERIAL BLOOD SPECIMENOrdering Facility: [facility] Address: [address] [place] [address] Performed By: #### A LLBG ####[facility]ORATORYCLIA [id number] [address] Oxygen adjusted to patient's actual temperature (Bld) [Partial pressure] 136 mmHg High 85-95 [facility] Comment on above: Order Comment: Speci men Type: ARTERIAL BLOOD SPECIMENOrdering Facility: [facility] Address: [address] [place] [address] Performed By: #### A LLBG ####[facility]ORATORYCLIA [id number] [address] [place] OXYGEN SATURATION, ARTERIAL 99 % High 95-98 [facility] Comment on above: Order Comment: Speci men Type: ARTERIAL BLOOD SPECIMENOrdering Facility: [facility] Address: [address] [place] [address] Performed By: #### A LLBG ####[facility]ORATORYCLIA [id number] [address] Oxyhemoglobin (BldA) [Mass fraction] 97 % Normal 95-98 [facility] Comment on above: Order Comment: Speci men Type: ARTERIAL BLOOD SPECIMENOrdering Facility: [facility] Address: [address] [place] [address] Performed By: #### A LLBG ####[facility]ORATORYCLIA [id number] [address] [place] pH (Bld) 7.41 [pH] Normal 7.35-7.45 [facility] Comment on above: Order Comment: Speci men Type: ARTERIAL BLOOD SPECIMENOrdering Facility: [facility] Address: [address] [place] [address] Performed By: #### A LLBG ####[facility]ORATORYCLIA [id number] [address] pH adjusted to patient's actual temperature (Bld) 7.40 Normal 7.35-7.45 [facility] Comment on above: Order Comment: Speci men Type: ARTERIAL BLOOD SPECIMENOrdering Facility: [facility] Address: [address] [place] [address] Performed By: #### A LLBG ####[facility]ORATORYCLIA [id number] [address] [place] [facility] Potassium [Moles/Vol] 3.8 mmol/L Normal 3.5-5.0 [facility] Comment on above: Order Comment: Speci men Type: ARTERIAL BLOOD SPECIMENOrdering Facility: [facility] Address: [address] [place] [address] Performed By: #### A LLBG ####[facility]ORATORYCLIA [id number] [address] Sodium [Moles/Vol] 166 mmol/L High 136-144 [facility] Comment on above: Order Comment: Speci men Type: ARTERIAL BLOOD SPECIMENOrdering Facility: [facility] Address: [address] [place] [address] Performed By: #### A LLBG ####[facility]ORATORYCLIA [id number] [address] [place] Bacteria Bld Culton 06-15-19 22 Bacteria identified Cx Nom (Bld) CULTURE, BLOOD: No growth 5 days Normal [facility] Comment on above: Performed By: #### 6 00-7 ####[facility]ORATORYCLIA [id number] [address] [place] Basic metabolic 2000 panelon 06-15-2021 Anion gap [Moles/Vol] 9 mmol/L Normal 9-18 [facility] Comment on above: Order Comment: Speci men Type: BLOOD SPECIMEN Performed By: #### 2 4321-2, 2777-1, 45280-7 ####[facility]ATORYCLIA [id number] [address] [place] Calcium [Mass/Vol] 9.0 mg/dL Normal 8.5-10.2 [facility] Comment on above: Order Comment: Speci men Type: BLOOD SPECIMEN Performed By: #### 2 4321-2, 2776-05, ####[facility]ORATORYCLIA [id number] [place], [place] [id number] [place] [address] [place] [facility] Chloride [Moles/Vol] 125 mmol/L High 97-105 [facility] Comment on above: Order Comment: Speci men Type: BLOOD SPECIMEN Performed By: #### 2 4321-2, 2776-05, ####[facility]ORATORYCLIA [id number] [address] [place] [facility] CO2 [Moles/Vol] 29 mmol/L Normal 22-30 [facility] Comment on above: Order Comment: Speci men Type: BLOOD SPECIMEN Performed By: #### 2 4321-2, 2776-05, ####[facility]ORATORYCLIA [id number] [address] [place] [facility] Creatinine [Mass/Vol] 0.81 mg/dL Normal 0.73-1.22 [facility] Comment on above: Order Comment: Speci men Type: BLOOD SPECIMEN Performed By: #### 2 4321-2, 2776-05, ####[facility]ORATORYCLIA [id number] [address] [place] GFR/1.73 sq M.predicted MDRD (S/P/Bld) [Vol rate/Area] mL/min/{1.73_m2} Normal [facility] Comment on above: Order [...] GFR. Performed By: #### 2 4321-2, 2776-05, ####[facility] LABORATORYCLIA [id number] [place] [address] [place] Glucose [Mass/Vol] 124 mg/dL High 74-99 [facility] Comment on above: Order Comment: Speci men Type: BLOOD SPECIMEN Result Comment: The [place] [employer] (ADA) provides guidance for cutoff [...] Standards of Medical Care in Diabetes 2016, [place] [employer]. Diabetes Care. 2016.39(Suppl 1). Performed By: #### 2 432-2, 2776-05, ####[facility]ORATORYCLIA [id number] [address] [place] Potassium [Moles/Vol] 3.8 mmol/L Normal 3.7-5.1 [facility] Comment on above: Order Comment: Speci men Type: BLOOD SPECIMEN Performed By: #### 2 4320-2, 2776-05, ####[facility]ORATORYCLIA [id number] [place] [address] [place] Sodium [Moles/Vol] 163 mmol/L High 136-144 [facility] Comment on above: Order Comment: Speci men Type: BLOOD SPECIMEN Performed By: #### 2 4321-2, 2776-05, ####[facility]ORATORYCLIA [id number] [place] [address] [place] Urea nitrogen [Mass/Vol] 35 mg/dL High 9-24 [facility] Comment on above: Order Comment: Speci men Type: BLOOD SPECIMEN Performed By: #### 2 1-2, 2776-05, 16368-3 ####[facility] LABORATORYCLIA [id number] [address] CBC panel Auto (Bld)on 06-15 Erythrocyte distribution width (RBC) [Ratio] 16.3 % High 11.5-15.0 [facility] Comment on above: Order Comment: Speci men Type: BLOOD SPECIMENOrdering Facility: [facility] Address: [address] [place] [address] Performed By: #### 5 8410-2 ####[facility] LABORATORYCLIA [id number] [address] Hematocrit (Bld) [Volume fraction] 30.0 % Low 39.0-51.0 [facility] Comment on above: Order Comment: Speci men Type: BLOOD SPECIMENOrdering Facility: [facility] Address: [address] [place] [address] Performed By: #### 5 8410-2 ####[facility] LABORATORYCLIA [id number] [address] Hemoglobin (Bld) [Mass/Vol] 8.9 g/dL Low 13.0-17.0 [facility] Comment on above: Order Comment: Speci men Type: BLOOD SPECIMENOrdering Facility: [facility] Address: [address] [place] [address] Performed By: #### 5 8410-2 ####[facility] LABORATORYCLIA [id number] [address] MCH (RBC) [Entitic mass] 28.7 pg Normal 26.0-34.0 [facility] Comment on above: Order Comment: Speci men Type: BLOOD SPECIMENOrdering Facility: [facility] Address: [address] [place] [address] Performed By: #### 5 8410-2 ####[facility] LABORATORYCLIA [id number] [address] MCHC (RBC) [Mass/Vol] 29.7 g/dL Low 30.5-36.0 [facility] Comment on above: Order Comment: Speci men Type: BLOOD SPECIMENOrdering Facility: [facility] Address: [address] [place], [place] [address] Performed By: #### 5 8410-2 ####[facility] LABORATORYCLIA [id number] [address] [place] [facility] MCV (RBC) [Entitic vol] 96.8 fL Normal 80.0-100.0 [facility] Comment on above: Order Comment: Speci men Type: BLOOD SPECIMENOrdering Facility: [facility] Address: [address] [place], [place] [address] Performed By: #### 5 8410-2 ####[facility] LABORATORYCLIA [id number] [address] [place] Nucleated RBC (Bld) [#/Vol] 10*3/uL Normal <0.01 [facility] Comment on above: Order Comment: Speci men Type: BLOOD SPECIMENOrdering Facility: [facility] Address: [address] [place] [address] Performed By: #### 5 8410-2 ####[facility] LABORATORYCLIA [id number] [address] Platelet mean volume (Bld) [Entitic vol] 12.3 fL Normal 9.0-12.7 [facility] Comment on above: Order Comment: Speci men Type: BLOOD SPECIMENOrdering Facility: [facility] Address: [address] [place], [place] [address] Performed By: #### 5 8410-2 ####[facility] LABORATORYCLIA [id number] [address] [place] Platelets (Bld) [#/Vol] 226 10*3/uL Normal 150-400 [facility] Comment on above: Order Comment: Speci men Type: BLOOD SPECIMENOrdering Facility: [facility] Address: [address] [place], [place] [address] Performed By: #### 5 8410-2 ####[facility] LABORATORYCLIA [id number] [address] [place] RBC (Bld) [#/Vol] 3.10 10*6/uL Low 4.20-6.00 [facility] Comment on above: Order Comment: Speci men Type: BLOOD SPECIMENOrdering Facility: [facility] Address: [address] [place] [address] Performed By: #### 5 8410-2 ####[facility] LABORATORYCLIA [id number] [address] OF [facility] WBC (Bld) [#/Vol] 10.77 10*3/uL Normal 3.70-11.00 [facility] Comment on above: Order Comment: Speci men Type: BLOOD SPECIMENOrdering Facility: [facility] Address: [address] [place] [address] Performed By: #### 5 8410-2 ####[facility] LABORATORYCLIA [id number] [address] OF [facility] Erythrocyte distribution width (RBC) [Ratio] 16.2 % High 11.5-15.0 [facility] Comment on above: Order Comment: Speci men Type: BLOOD SPECIMENOrdering Facility: [facility] Address: [address] [place] [address] Performed By: #### 5 8410-2 ####[facility] LABORATORYCLIA [id number] [address] Hematocrit (Bld) [Volume fraction] 34.8 % Low 39.0-51.0 [facility] Comment on above: Order Comment: Speci men Type: BLOOD SPECIMENOrdering Facility: [facility] Address: [address] [place] [address] Performed By: #### 5 8410-2 ####[facility] LABORATORYCLIA [id number] [address] [place] Hemoglobin (Bld) [Mass/Vol] 10.0 g/dL Low 13.0-17.0 [facility] Comment on above: Order Comment: Speci men Type: BLOOD SPECIMENOrdering Facility: [facility] Address: [address] [place] [address] Performed By: #### 5 8410-2 ####[facility] LABORATORYCLIA [id number] [address] MCH (RBC) [Entitic mass] 27.5 pg Normal 26.0-34.0 [facility] Comment on above: Order Comment: Speci men Type: BLOOD SPECIMENOrdering Facility: [facility] Address: [address] [place] [address] Performed By: #### 5 8410-2 ####[facility] LABORATORYCLIA [id number] [address] MCHC (RBC) [Mass/Vol] 28.7 g/dL Low 30.5-36.0 [facility] Comment on above: Order Comment: Speci men Type: BLOOD SPECIMENOrdering Facility: [facility] Address: [address] [place] [address] Performed By: #### 5 8410-2 ####[facility] LABORATORYCLIA [id number] [address] MCV (RBC) [Entitic vol] 95.6 fL Normal 80.0-100.0 [facility] Comment on above: Order Comment: Speci men Type: BLOOD SPECIMENOrdering Facility: [facility] Address: [address] [place] [address] Performed By: #### 5 8410-2 ####[facility] LABORATORYCLIA [id number] [address] Nucleated RBC (Bld) [#/Vol] 10*3/uL Normal <0.01 [facility] Comment on above: Order Comment: Speci men Type: BLOOD SPECIMENOrdering Facility: [facility] Address: [address] [place] [address] Performed By: #### 5 8410-2 ####[facility] LABORATORYCLIA [id number] [address] [place] Platelet mean volume (Bld) [Entitic vol] 11.9 fL Normal 9.0-12.7 [facility] Comment on above: Order Comment: Speci men Type: BLOOD SPECIMENOrdering Facility: [facility] Address: [address] [place] [address] Performed By: #### 5 8410-2 ####[facility] LABORATORYCLIA [id number] [address] [place] Platelets (Bld) [#/Vol] 246 10*3/uL Normal 150-400 [facility] Comment on above: Order Comment: Speci men Type: BLOOD SPECIMENOrdering Facility: [facility] Address: [address] [place] [address] Performed By: #### 5 8410-2 ####[facility] LABORATORYCLIA [id number] [address] [place] RBC (Bld) [#/Vol] 3.64 10*6/uL Low 4.20-6.00 [facility] Comment on above: Order Comment: Speci men Type: BLOOD SPECIMENOrdering Facility: [facility] Address: [address] [place] [address] Performed By: #### 5 8410-2 ####[facility] LABORATORYCLIA [id number] [address] [place] WBC (Bld) [#/Vol] 11.45 10*3/uL High 3.70-11.00 [facility] Comment on above: Order Comment: Speci men Type: BLOOD SPECIMENOrdering Facility: [facility] Address: [address] [place] [address] Performed By: #### 5 8410-2 ####[facility] LABORATORYCLIA [id number] [address] [place] Erythrocyte distribution width (RBC) [Ratio] 15.9 % High 11.5-15.0 [facility] Comment on above: Order Comment: Speci men Type: BLOOD SPECIMEN Performed By: #### 5 8410-2 ####[facility] LABORATORYCLIA [id number] [address] Hematocrit (Bld) [Volume fraction] 35.8 % Low 39.0-51.0 [facility] Comment on above: Order Comment: Speci men Type: BLOOD SPECIMEN Performed By: #### 5 8410-2 ####[facility]ORATORYCLIA [id number] [address] Hemoglobin (Bld) [Mass/Vol] 10.4 g/dL Low 13.0-17.0 [facility] Comment on above: Order Comment: Speci men Type: BLOOD SPECIMEN Performed By: #### 5 8410-2 ####[facility] LABORATORYCLIA [id number] [address] MCH (RBC) [Entitic mass] 28.0 pg Normal 26.0-34.0 [facility] Comment on above: Order Comment: Speci men Type: BLOOD SPECIMEN Performed By: #### 5 8410-2 ####[facility]ORATORYCLIA [id number] [address] MCHC (RBC) [Mass/Vol] 29.1 g/dL Low 30.5-36.0 [facility] Comment on above: Order Comment: Speci men Type: BLOOD SPECIMEN Performed By: #### 5 8410-2 ####[facility]ORATORYCLIA [id number] [address] MCV (RBC) [Entitic vol] 96.2 fL Normal 80.0-100.0 [facility] Comment on above: Order Comment: Speci men Type: BLOOD SPECIMEN Performed By: #### 5 8410-2 ####[facility]ORATORYCLIA [id number] [address] Nucleated RBC (Bld) [#/Vol] 10*3/uL Normal <0.01 [facility] Comment on above: Order Comment: Speci men Type: BLOOD SPECIMEN Performed By: #### 5 8410-2 ####[facility] LABORATORYCLIA [id number] [address] Platelet mean volume (Bld) [Entitic vol] 11.6 fL Normal 9.0-12.7 [facility] Comment on above: Order Comment: Speci men Type: BLOOD SPECIMEN Performed By: #### 5 8410-2 ####[facility]ORATORYCLIA [id number] [address] Platelets (Bld) [#/Vol] 265 10*3/uL Normal 150-400 [facility] Comment on above: Order Comment: Speci men Type: BLOOD SPECIMEN Performed By: #### 5 8410-2 ####[facility]ATORYCLIA [id number] [address] RBC (Bld) [#/Vol] 3.72 10*6/uL Low 4.20-6.00 [facility] Comment on above: Order Comment: Speci men Type: BLOOD SPECIMEN Performed By: #### 5 8410-2 ####[facility] LABORATORYCLIA [id number] [address] WBC (Bld) [#/Vol] 12.24 10*3/uL High 3.70-11.00 [facility] Comment on above: Order Comment: Speci men Type: BLOOD SPECIMEN Performed By: #### 5 8410-2 ####[facility] LABORATORYCLIA [id number] [address] OF [facility] CONSULTon 06-15-2021 CONSULT Normal [facility] CONSULT Normal [facility] CONSULT Normal [facility] CT BRAIN WO IVCONon 06-15-19 CT BRAIN WO IVCON Normal [facility] CT CHEST W IVCON PEon 2021 CT CHEST W IVCON PE Invalid Interpretation Code [facility] Chloride Unsp time (U) [Mole s/Vol]on 06-15-2021 Chloride (U) [Moles/Vol] 28 mmol/L Normal 16-250 [facility] Comment on above: Order Comment: Speci men Type: URINE SPECIMENOrdering Facility: [facility] Address: [address] [place] [address] Performed By: #### U TPR, 82113-5, 33335-3, 15621-6 ####[facility] LABORATORYCLIA [id number] [address] Comprehensive metabolic 2000 panelon 06-15-2021 Albumin [Mass/Vol] 2.8 g/dL Low 3.9-4.9 [facility] Comment on above: Order Comment: Speci men Type: BLOOD SPECIMENOrdering Facility: [facility] Address: [address] [place] [address] Performed By: #### 2 4323-8 ####[facility] LABORATORYCLIA [id number] [address] STATES OF [facility] ALP [Catalytic activity/Vol] 74 U/L Normal 38-113 [facility] Comment on above: Order Comment: Speci men Type: BLOOD SPECIMENOrdering Facility: [facility] Address: [address] [place] [address] Performed By: #### 2 4323-8 ####[facility] LABORATORYCLIA [id number] [address] ALT With P-5'-P [Catalytic activity/Vol] 50 U/L Normal 10-54 [facility] Comment on above: Order Comment: Speci men Type: BLOOD SPECIMENOrdering Facility: [facility] Address: [address] [place] [address] Performed By: #### 2 4323-8 ####[facility] LABORATORYCLIA [id number] [address] Anion gap [Moles/Vol] 12 mmol/L Normal 9-18 [facility] Comment on above: Order Comment: Speci men Type: BLOOD SPECIMENOrdering Facility: [facility] Address: [address] [place] [address] Performed By: #### 2 4323-8 ####[facility]ORATORYCLIA [id number] [place] [address] [place] AST With P-5'-P [Catalytic activity/Vol] 36 U/L Normal 14-40 [facility] Comment on above: Order Comment: Speci men Type: BLOOD SPECIMENOrdering Facility: [facility] Address: [address] [place] [address] Performed By: #### 2 4323-8 ####[facility] LABORATORYCLIA [id number] [place] [address] [place] Bilirubin [Mass/Vol] 0.5 mg/dL Normal 0.2-1.3 [facility] Comment on above: Order Comment: Speci men Type: BLOOD SPECIMENOrdering Facility: [facility] Address: [address] [place] [address] Performed By: #### 2 4323-8 ####[facility] LABORATORYCLIA [id number] [place] [address] [place] Calcium [Mass/Vol] 8.8 mg/dL Normal 8.5-10.2 [facility] Comment on above: Order Comment: Speci men Type: BLOOD SPECIMENOrdering Facility: [facility] Address: [address] [place] [address] Performed By: #### 2 4323-8 ####[facility] LABORATORYCLIA [id number] [place] [address] [place] Chloride [Moles/Vol] 126 mmol/L High 97-105 [facility] Comment on above: Order Comment: Speci men Type: BLOOD SPECIMENOrdering Facility: [facility] Address: [address] [place] [address] Performed By: #### 2 4323-8 ####[facility]ORATORYCLIA [id number] [place] [address] [place] CO2 [Moles/Vol] 24 mmol/L Normal 22-30 [facility] Comment on above: Order Comment: Speci men Type: BLOOD SPECIMENOrdering Facility: [facility] Address: [address] [address] Performed By: #### 2 4323-8 ####[facility] LABORATORYCLIA [id number] [address] [place] Creatinine [Mass/Vol] 0.84 mg/dL Normal 0.73-1.22 [facility] Comment on above: Order Comment: Shira feldman Type: BLOOD SPECIMENOrdering Facility: [facility] Address: [address] [place] [address] Performed By: #### 2 4323-8 ####[facility] LABORATORYCLIA [id number] [address] [place] GFR/1.73 sq M.predicted MDRD (S/P/Bld) [Vol rate/Area] mL/min/{1.73_m2} Normal [facility] Comment on above: Order Comment: Shira feldman Type: BLOOD SPECIMENOrdering Facility: [facility] Address: [address] [place] [address] Result Comment: >60e GFR (Estimated GFR) Units [...] actual GFR. Performed By: #### 2 4323-8 ####[facility] LABORATORYCLIA [id number] [address] [place] Glucose [Mass/Vol] 142 mg/dL High 74-99 [facility] Comment on above: Order Comment: Shira feldman Type: BLOOD SPECIMENOrdering Facility: [facility] Address: [address] [address] Result Comment: The [place] [employer] (ADA) provides guidance for cutoff [...] Standards of Medical Care in Diabetes 2016, [place] [employer]. Diabetes Care. 2016.39(Suppl 1). Performed By: #### 2 4323-8 ####[facility] LABORATORYCLIA [id number] [place] [address] [place] Potassium [Moles/Vol] 3.8 mmol/L Normal 3.7-5.1 [facility] Comment on above: Order Comment: Speci men Type: BLOOD SPECIMENOrdering Facility: [facility] Address: [address] [place] [address] Performed By: #### 2 4323-8 ####[facility] LABORATORYCLIA [id number] [place] [address] [place] Protein [Mass/Vol] 6.1 g/dL Low 6.3-8.0 [facility] Comment on above: Order Comment: Johni francia Type: BLOOD SPECIMENOrdering Facility: [facility] Address: [address] [place] [address] Performed By: #### 2 4323-8 ####[facility] LABORATORYCLIA [id number] [place] [address] [place] Sodium [Moles/Vol] 162 mmol/L High 136-144 [facility] Comment on above: Order Comment: Johni men Type: BLOOD SPECIMENOrdering Facility: [facility] Address: [address] [address] Performed By: #### 2 4323-8 ####[facility] LABORATORYCLIA [id number] [place] [address] [place] Urea nitrogen [Mass/Vol] 33 mg/dL High 9-24 [facility] Comment on above: Order Comment: Speci men Type: BLOOD SPECIMENOrdering Facility: [facility] Address: [address] [place] [address] Performed By: #### 2 4323-8 ####[facility] LABORATORYCLIA [id number] [place] [address] [place] Creatinine Unsp time (U) [Ma ss/Vol]on 06-15-2021 Creatinine (U) [Mass/Vol] 87.0 mg/dL Normal 46.8-314.5 [facility] Comment on above: Order Comment: Speci men Type: URINE SPECIMENOrdering Facility: [facility] Address: [address] [place] [address] Performed By: #### U TPR, 42438-2, 31533-5, 22400-9 ####[facility] LABORATORYCLIA [id number] [address] [place] HIGH SENSITIVITY TROPONIN To n 06-15-2021 HIGH SENSITIVITY TAMIKO 23 ng/L High <12 [facility] Comment on above: Order Comment: Speci men Type: BLOOD SPECIMENOrdering Facility: [facility] Address: [address] [place] [address] Result Comment: When assessing risk for acute [...] day MACE. Performed By: #### P ROCAL, 81160-9, HSTNT ####[facility] LABORATORYCLIA [id number] [place] [address] [place] Lactate (Bld) [Moles/Vol]on 06-15-2021 Lactate [Moles/Vol] 0.8 mmol/L Normal 0.5-2.2 [facility] Comment on above: Order Comment: Speci men Type: BLOOD SPECIMENOrdering Facility: [facility] Address: [address] [place] [address] Performed By: #### 3 2693-4 ####[facility] LABORATORYCLIA [id number] [address] STATES OF [facility] Magnesium [Mass/Vol] 3.0 mg/dL High 1.7-2.3 [facility] Comment on above: Order Comment: Speci men Type: BLOOD SPECIMEN Performed By: #### 2 4321-2, 2777-1, 72363-9 ####[facility] LABORATORYCLIA [id number] [address] NT-proBNP [facility] 06-15 Natriuretic peptide.B prohormone N-Terminal [Mass/Vol] 265 pg/mL High <125 [facility] Comment on above: Order Comment: Speci men Type: BLOOD SPECIMENOrdering Facility: [facility] Address: [address] [place] [address] Performed By: #### P ROCAL, 84860-7, HSTNT ####[facility] LABORATORYCLIA [id number] [address] [place] Osmolality Uron 06-15-2021 Osmolality (U) [Osmolality] 606 mosm/kg Normal 50-1,200 [facility] Comment on above: Order Comment: Speci men Type: URINE SPECIMENOrdering Facility: [facility] Address: [address] [place] [address] Performed By: #### 2 695-5 ####[facility] LABORATORYCLIA [id number] [address] [place] PROCALCITONIN (LAB)on 2021 Procalcitonin [Mass/Vol] 0.21 ng/mL High <0.09 [facility] Comment on above: Order Comment: Speci men Type: BLOOD SPECIMENOrdering Facility: [facility] Address: [address] [place] [address] Result Comment: For a guided interpretation of test results, please visit the Change in Procalcitonin Calculator, [email or web address]. Performed By: #### P JULIANNE, 2951-2 ####[facility] LABORATORYCLIA [id number] [address] Procalcitonin [Mass/Vol] 0.17 ng/mL High <0.09 [facility] Comment on above: Order Comment: Speci men Type: BLOOD SPECIMENOrdering Facility: [facility] Address: [address] [place] [address] Result Comment: For a guided interpretation of test results, please visit the Change in Procalcitonin Calculator, [email or web address]. Performed By: #### P JULIANNE, 95491-7, HSTNT ####[facility]CLIA [id number] [address] PROTEIN RANDOM URon 06-15-19 22 Protein (U) [Mass/Vol] 175 mg/dL High 0-20 [facility] Comment on above: Order Comment: Speci men Type: URINE SPECIMENOrdering Facility: [facility] Address: [address] [place] [address] Performed By: #### U TPR, 47849-2, 76976-1, 38715-2 ####[facility]CLIA [id number] [address] OF [facility] PT panel Coag (PPP)on 2021 INR Coag (PPP) [Relative time] 1.1 {INR} Normal <1.4 [facility] Comment on above: Order Comment: Speci men Type: BLOOD SPECIMENOrdering Facility: [facility] Address: [address] [place] [address] Result Comment: Yris min K Antagonist (VKA) Therapeutic Range: INR 2 to 3 (Target INR of 2.5)Note: For patients treated with VKA drugs, such as warfarin, the [place] [employer] 2012 Guideline recommends [...] al. Chest 2012, 141:7S-47SNishimura RA, et al. [facility] 2017, 70: 252-289 Performed By: #### 3 4528-0, 99360-2 ####[facility] LABORATORYCLIA [id number] [place] [address] [place] PT Coag (PPP) [Time] 11.4 s Normal <13.1 [facility] Comment on above: Order Comment: Speci men Type: BLOOD SPECIMENOrdering Facility: [facility] Address: [address] [place] [address] Performed By: #### 3 4528-0, 75457-0 ####[facility]CLIA [id number] [place] [address] [place] Phosphate SerPl-mCncon 06-15 Phosphate [Mass/Vol] 2.6 mg/dL Low 2.7-4.8 [facility] Comment on above: Order Comment: Speci men Type: BLOOD SPECIMEN Performed By: #### 2 4321-2, 2777-1, 23229-9 ####[facility]ORATORYCLIA [id number] [place] [address] [place] Sodium ?Tm Ur-sCncon 022 Sodium Unsp time (U) [Moles/Vol] 34 mmol/L Normal 14-216 [facility] Comment on above: Order Comment: Speci men Type: URINE SPECIMENOrdering Facility: [facility] Address: [address] [place] [address] Performed By: #### U TPR, 68855-6, 93617-0, 73676-5 ####[facility] LABORATORYCLIA [id number] [address] [place] Sodium SerPl-sCncon 06-15-19 22 Sodium [Moles/Vol] 159 mmol/L High 136-144 [facility] Comment on above: Order Comment: Speci men Type: BLOOD SPECIMENOrdering Facility: [facility] Address: [address] [place] [address] Performed By: #### P JULIANNE, 2951-2 ####[facility] LABORATORYCLIA [id number] [address] OF [facility] THERAPY NTon 06-15-2021 THERAPY NT Normal [facility] Urinalysis complete panel (U )on 06-15-2021 Bacteria LM.HPF (Urine sed) [#/Area] None Seen Normal None Seen [facility] Comment on above: Order Comment: Speci men Type: URINE SPECIMENOrdering Facility: [facility] Address: [address] [place] [address] Performed By: #### 2 4356-8 ####[facility]IA [id number] [address] [place] [facility] Bilirubin Ql (U) Negative Normal Negative [facility] Comment on above: Order Comment: Speci men Type: URINE SPECIMENOrdering Facility: [facility] Address: [address] [place] [address] Performed By: #### 2 4356-8 ####[facility]ORATORYCLIA [id number] [address] [place] Clarity (Unsp spec) Cloudy Abnormal Clear [facility] Comment on above: Order Comment: Speci men Type: URINE SPECIMENOrdering Facility: [facility] Address: [address] [place] [address] Performed By: #### 2 4356-8 ####[facility] LABORATORYCLIA [id number] [address] Color (U) Yellow Normal Yellow [facility] Comment on above: Order Comment: Speci men Type: URINE SPECIMENOrdering Facility: [facility] Address: [address] [place] [address] Performed By: #### 2 4356-8 ####[facility]ORATORYCLIA [id number] [address] Epithelial cells LM.HPF (Urine sed) [#/Area] 7.1 /[HPF] Normal [facility] Comment on above: Order Comment: Speci men Type: URINE SPECIMENOrdering Facility: [facility] Address: [address] [place] [address] Performed By: #### 2 4356-8 ####[facility]ORATORYCLIA [id number] [address] Glucose Test strip (U) [Mass/Vol] Negative Normal Negative [facility] Comment on above: Order Comment: Speci men Type: URINE SPECIMENOrdering Facility: [facility] Address: [address] [place] [address] Performed By: #### 2 4356-8 ####[facility]ORATORYCLIA [id number] [address] Granular casts (Urine sed) [#/Area] /[LPF] Abnormal 0 /LPF [facility] Comment on above: Order Comment: Speci men Type: URINE SPECIMENOrdering Facility: [facility] Address: [address] [place] [address] Performed By: #### 2 4356-8 ####[facility]ORATORYCLIA [id number] [address] Hemoglobin Ql (U) Moderate Abnormal Negative [facility] Comment on above: Order Comment: Speci men Type: URINE SPECIMENOrdering Facility: [facility] Address: [address] [place] [address] Performed By: #### 2 4356-8 ####[facility]ORATORYCLIA [id number] [address] Hyaline casts (Urine sed) [#/Area] /[LPF] Abnormal 0 /LPF [facility] Comment on above: Order Comment: Speci men Type: URINE SPECIMENOrdering Facility: [facility] Address: [address] [place] [address] Performed By: #### 2 4356-8 ####[facility]ATORYCLIA [id number] [address] Ketones Ql (U) Negative Normal Negative [facility] Comment on above: Order Comment: Speci men Type: URINE SPECIMENOrdering Facility: [facility] Address: [address] [place] [address] Performed By: #### 2 4356-8 ####[facility]ATORYCLIA [id number] [address] Leukocyte esterase Test strip Ql (U) Negative Normal Negative [facility] Comment on above: Order Comment: Speci men Type: URINE SPECIMENOrdering Facility: [facility] Address: [address] [place] [address] Performed By: #### 2 4356-8 ####[facility]ATORYCLIA [id number] [address] Nitrite Ql (U) Negative Normal Negative [facility] Comment on above: Order Comment: Speci men Type: URINE SPECIMENOrdering Facility: [facility] Address: [address] [place] [address] Performed By: #### 2 4356-8 ####[facility]ORYCLIA [id number] [address] pH (U) 6.0 [pH] Normal 5.0-8.0 [facility] Comment on above: Order Comment: Speci men Type: URINE SPECIMENOrdering Facility: [facility] Address: [address] [place] [address] Performed By: #### 2 4356-8 ####[facility]ORYCLIA [id number] [address] Protein (U) [Mass/Vol] 100 mg/dL Abnormal Negative [facility] Comment on above: Order Comment: Speci men Type: URINE SPECIMENOrdering Facility: [facility] Address: [address] [place] [address] Performed By: #### 2 4356-8 ####[facility]ATORYCLIA [id number] [address] RBC LM.HPF (Urine sed) [#/Area] 0-3 /HPF Normal 0-3 /HPF [facility] Comment on above: Order Comment: Speci men Type: URINE SPECIMENOrdering Facility: [facility] Address: [address] [place] [address] Performed By: #### 2 4356-8 ####[facility]ORATORYCLIA [id number] [address] Specific gravity (U) [Rel density] 1.024 Normal 1.005-1.030 [facility] Comment on above: Order Comment: Speci men Type: URINE SPECIMENOrdering Facility: [facility] Address: [address] [place] [address] Performed By: #### 2 4356-8 ####[facility]ORATORYCLIA [id number] [address] Urobilinogen Ql (U) 0.2 EU/dL Normal 0.2-1.0 EU/dL [facility] Comment on above: Order Comment: Speci men Type: URINE SPECIMENOrdering Facility: [facility] Address: [address] [place] [address] Performed By: #### 2 4356-8 ####[facility]ATORYCLIA [id number] [address] WBC LM.HPF (Urine sed) [#/Area] 0-5 /HPF Normal 0-5 /HPF [facility] Comment on above: Order Comment: Speci men Type: URINE SPECIMENOrdering Facility: [facility] Address: [address] [place] [address] Performed By: #### 2 4356-8 ####[facility]ORATORYCLIA [id number] [place] [address] [place] XR CHEST 1V FRONTALon 2021 XR CHEST 1V FRONTAL Normal [facility] XR CHEST 1V FRONTAL PORTon 0 06-15-2021 XR CHEST 1V FRONTAL PORT Normal [facility] XR CHEST 1V FRONTAL PORT Normal [facility] aPTT PPPon 06-15-2021 aPTT Coag (PPP) [Time] 30.9 s Normal 23.0-32.4 [facility] Comment on above: Order Comment: Speci men Type: BLOOD SPECIMENOrdering Facility: [facility] Address: [address] [place], [place] [address] [address] Performed By: #### 3 4528-0, 55924-9 ####[facility]ORATORYCLIA [id number] [place] [address] [place] Basic metabolic 2000 panelon 06-14-2021 Anion gap [Moles/Vol] 8 mmol/L Low 9-18 [facility] Comment on above: Order Comment: Speci men Type: BLOOD SPECIMEN Performed By: #### 2 4321-2, 2776-05, ####[facility]ORATORYCLIA [id number] [place] [id number] [place] Calcium [Mass/Vol] 8.9 mg/dL Normal 8.5-10.2 [facility] Comment on above: Order Comment: Speci men Type: BLOOD SPECIMEN Performed By: #### 2 4321-2, 2776-05, ####[facility]ATORYCLIA [id number] [place] [address] [place] Chloride [Moles/Vol] 121 mmol/L High 97-105 [facility] Comment on above: Order Comment: Speci men Type: BLOOD SPECIMEN Performed By: #### 2 4321-2, 2776-05, ####[facility]ATORYCLIA [id number] [place] [address] [place] CO2 [Moles/Vol] 30 mmol/L Normal 22-30 [facility] Comment on above: Order Comment: Speci men Type: BLOOD SPECIMEN Performed By: #### 2 4321-2, 2776-05, ####[facility]ATORYCLIA [id number] [address] [place] Creatinine [Mass/Vol] 0.78 mg/dL Normal 0.73-1.22 [facility] Comment on above: Order Comment: Speci men Type: BLOOD SPECIMEN Performed By: #### 2 4321-2, 2776-05, ####[facility]ATORYCLIA [id number] [address] [place] GFR/1.73 sq M.predicted MDRD (S/P/Bld) [Vol rate/Area] mL/min/{1.73_m2} Normal [facility] Comment on above: Order [...] GFR. Performed By: #### 2 4321-2, 2776-05, ####[facility]ATORYCLIA [id number] [place] [address] [place] Glucose [Mass/Vol] 132 mg/dL High 74-99 [facility] Comment on above: Order Comment: Speci [facility] Type: BLOOD SPECIMEN Result Comment: The [place] [employer] (ADA) provides guidance for cutoff [...] Standards of Medical Care in Diabetes 2016, [place] [employer]. Diabetes Care. 2016.39(Suppl 1). Performed By: #### 2 4321-2, 2776-05, ####[facility]ORATORYCLIA [id number] [address] STATES OF [facility] Potassium [Moles/Vol] 3.7 mmol/L Normal 3.7-5.1 [facility] Comment on above: Order Comment: Speci men Type: BLOOD SPECIMEN Performed By: #### 2 4321-2, 2776-05, ####[facility]ATORYCLIA [id number] [address] [facility] Sodium [Moles/Vol] 159 mmol/L High 136-144 [facility] Comment on above: Order Comment: Speci men Type: BLOOD SPECIMEN Performed By: #### 2 4321-2, 2776-05, ####[facility]ATORYCLIA [id number] [address] [facility] Urea nitrogen [Mass/Vol] 35 mg/dL High 9-24 [facility] Comment on above: Order Comment: Speci men Type: BLOOD SPECIMEN Performed By: #### 2 4321-2, 2776-05, ####[facility]ATORYCLIA [id number] [address] [place] CASE MANAGEMon 06-14-2021 CASE MANAGEM Normal [facility] CBC panel Auto (Bld)on 06-14 Erythrocyte distribution width (RBC) [Ratio] 16.2 % High 11.5-15.0 [facility] Comment on above: Order Comment: Speci men Type: BLOOD SPECIMEN Performed By: #### 5 8410-2 ####[facility]ORATORYCLIA [id number] [address] Hematocrit (Bld) [Volume fraction] 35.2 % Low 39.0-51.0 [facility] Comment on above: Order Comment: Speci men Type: BLOOD SPECIMEN Performed By: #### 5 8410-2 ####[facility]ATORYCLIA [id number] [address] Hemoglobin (Bld) [Mass/Vol] 10.1 g/dL Low 13.0-17.0 [facility] Comment on above: Order Comment: Speci men Type: BLOOD SPECIMEN Performed By: #### 5 8410-2 ####[facility]ATORYCLIA [id number] [address] MCH (RBC) [Entitic mass] 27.2 pg Normal 26.0-34.0 [facility] Comment on above: Order Comment: Speci men Type: BLOOD SPECIMEN Performed By: #### 5 8410-2 ####[facility]ATORYCLIA [id number] [address] MCHC (RBC) [Mass/Vol] 28.7 g/dL Low 30.5-36.0 [facility] Comment on above: Order Comment: Speci men Type: BLOOD SPECIMEN Performed By: #### 5 8410-2 ####[facility]ATORYCLIA [id number] [address] MCV (RBC) [Entitic vol] 94.6 fL Normal 80.0-100.0 [facility] Comment on above: Order Comment: Speci men Type: BLOOD SPECIMEN Performed By: #### 5 8410-2 ####[facility]ATORYCLIA [id number] [address] Nucleated RBC (Bld) [#/Vol] 10*3/uL Normal <0.01 [facility] Comment on above: Order Comment: Speci men Type: BLOOD SPECIMEN Performed By: #### 5 8410-2 ####[facility]ATORYCLIA [id number] [address] Platelet mean volume (Bld) [Entitic vol] 11.0 fL Normal 9.0-12.7 [facility] Comment on above: Order Comment: Speci men Type: BLOOD SPECIMEN Performed By: #### 5 8410-2 ####[facility]ATORYCLIA [id number] [address] Platelets (Bld) [#/Vol] 287 10*3/uL Normal 150-400 [facility] Comment on above: Order Comment: Speci men Type: BLOOD SPECIMEN Performed By: #### 5 8410-2 ####[facility]ATORYCLIA [id number] [address] RBC (Bld) [#/Vol] 3.72 10*6/uL Low 4.20-6.00 [facility] Comment on above: Order Comment: Speci men Type: BLOOD SPECIMEN Performed By: #### 5 8410-2 ####[facility]ATORYCLIA [id number] [address] WBC (Bld) [#/Vol] 12.23 10*3/uL High 3.70-11.00 [facility] Comment on above: Order Comment: Speci men Type: BLOOD SPECIMEN Performed By: #### 5 8410-2 ####[facility]ATORYCLIA [id number] [address] Comprehensive metabolic 2000 panelon 06-14-2021 Albumin [Mass/Vol] 3.1 g/dL Low 3.9-4.9 [facility] Comment on above: Order Comment: Speci men Type: BLOOD SPECIMEN Performed By: #### 2 4323-8, HSTNT, 2777-1, 52107-5 ####[facility]ATORYCLIA [id number] [address] ALP [Catalytic activity/Vol] 72 U/L Normal 38-113 [facility] Comment on above: Order Comment: Speci men Type: BLOOD SPECIMEN Performed By: #### 2 4323-8, HSTNT, 2776-05, ####[facility]ATORYCLIA [id number] [place], [place] [id number] [place] [address] ALT With P-5'-P [Catalytic activity/Vol] 57 U/L High 10-54 [facility] Comment on above: Order Comment: Speci men Type: BLOOD SPECIMEN Performed By: #### 2 4323-8, HSTNT, 2776-05, ####[facility]ATORYCLIA [id number] [place], [place] [address] [place] [address] OF [facility] Anion gap [Moles/Vol] 9 mmol/L Normal 9-18 [facility] Comment on above: Order Comment: Speci men Type: BLOOD SPECIMEN Performed By: #### 2 4323-8, HSTNT, 2776-05, ####[facility]ATORYCLIA [id number] [address] AST With P-5'-P [Catalytic activity/Vol] 33 U/L Normal 14-40 [facility] Comment on above: Order Comment: Speci men Type: BLOOD SPECIMEN Performed By: #### 2 4323-8, HSTNT, 2776-05, ####[facility]ATORYCLIA [id number] [place], [place] [address] [place] [address] OF [facility] Bilirubin [Mass/Vol] 0.5 mg/dL Normal 0.2-1.3 [facility] Comment on above: Order Comment: Speci men Type: BLOOD SPECIMEN Performed By: #### 2 4323-8, HSTNT, 2776-05, ####[facility]ATORYCLIA [id number] [place], [place] [address] [place] [address] Calcium [Mass/Vol] 8.8 mg/dL Normal 8.5-10.2 [facility] Comment on above: Order Comment: Speci men Type: BLOOD SPECIMEN Performed By: #### 2 4323-8, HSTNT, 2776-05, ####[facility]ATORYCLIA [id number] [address] [place] Chloride [Moles/Vol] 124 mmol/L High 97-105 [facility] Comment on above: Order Comment: Speci men Type: BLOOD SPECIMEN Performed By: #### 2 4323-8, HSTNT, 2776-05, ####[facility]ATORYCLIA [id number] [address] STATES OF [facility] CO2 [Moles/Vol] 29 mmol/L Normal 22-30 [facility] Comment on above: Order Comment: Speci men Type: BLOOD SPECIMEN Performed By: #### 2 4323-8, HSTNT, 2776-05, ####[facility]ATORYCLIA [id number] [address] [place] Creatinine [Mass/Vol] 0.73 mg/dL Normal 0.73-1.22 [facility] Comment on above: Order Comment: Speci men Type: BLOOD SPECIMEN Performed By: #### 2 4323-8, HSTNT, 2776-05, ####[facility]ATORYCLIA [id number] [address] GFR/1.73 sq M.predicted MDRD (S/P/Bld) [Vol rate/Area] mL/min/{1.73_m2} Normal [facility] Comment on above: Order [...] GFR. Performed By: #### 2 4323-8, HSTNT, ####[facility]ATORYCLIA [id number] [place] [address] [place] Glucose [Mass/Vol] 137 mg/dL High 74-99 [facility] Comment on above: Order Comment: Speci men Type: BLOOD SPECIMEN Result Comment: The [place] Diabetes [employer] (ADA) provides guidance for cutoff [...] Standards of Medical Care in Diabetes 2016, [place] [employer]. Diabetes Care. 2016.39(Suppl 1). Performed By: #### 2 4323-8, HSTNT, ####[facility]ATORYCLIA [id number] [place] [address] [place] Potassium [Moles/Vol] 3.6 mmol/L Low 3.7-5.1 [facility] Comment on above: Order Comment: Speci men Type: BLOOD SPECIMEN Performed By: #### 2 4323-8, HSTNT, ####[facility]ATORYCLIA [id number] [place] [address] [place] Protein [Mass/Vol] 5.9 g/dL Low 6.3-8.0 [facility] Comment on above: Order Comment: Speci men Type: BLOOD SPECIMEN Performed By: #### 2 4323-8, HSTNT, ####[facility]ATORYCLIA [id number] [place] [address] [place] Sodium [Moles/Vol] 162 mmol/L High 136-144 [facility] Comment on above: Order Comment: Speci men Type: BLOOD SPECIMEN Performed By: #### 2 4323-8, HSTNT, 2776-05, ####[facility]ATORYCLIA [id number] [address] [facility] Urea nitrogen [Mass/Vol] 33 mg/dL High 9-24 [facility] Comment on above: Order Comment: Speci men Type: BLOOD SPECIMEN Performed By: #### 2 4323-8, HSTNT, 2776-05, ####[facility]ATORYCLIA [id number] [address] HIGH SENSITIVITY TROPONIN To n 06-14-2021 HIGH SENSITIVITY TAMIKO 22 ng/L High <12 [facility] Comment on above: Order Comment: [...] day MACE. Performed By: #### H STNT ####[facility]ATORYCLIA [id number] [address] HIGH SENSITIVITY TAMIKO 22 ng/L High <12 [facility] Comment on above: Order Comment: [...] Performed By: #### 2 4323-8, HSTNT, 2776-05, ####[facility]ATORYCLIA [id number] [address] Magnesium SerPl-mCncon 06-14 Magnesium [Mass/Vol] 2.9 mg/dL High 1.7-2.3 [facility] Comment on above: Order Comment: Speci men Type: BLOOD SPECIMEN Performed By: #### 2 4323-8, HSTNT, 2776-05, ####[facility]ATORYCLIA [id number] [place], [place] [id number] [place] [address] [place] [facility] Magnesium [Mass/Vol] 3.0 mg/dL High 1.7-2.3 [facility] Comment on above: Order Comment: Speci men Type: BLOOD SPECIMEN Performed By: #### 2 4321-2, 2776-, ####[facility]ORATORYCLIA [id number] [address] STATES OF [facility] NURSING PROGon 06-14-2021 NURSING PROG Normal [facility] NUTRITIONon 06-14-2021 NUTRITION Normal [facility] Phosphate SerPl-mCncon 06-14 Phosphate [Mass/Vol] 2.4 mg/dL Low 2.7-4.8 [facility] Comment on above: Order Comment: Speci men Type: BLOOD SPECIMEN Performed By: #### 2 4323-8, HSTNT, 2776-05, ####[facility]ATORYCLIA [id number] [address] STATES OF [facility] Phosphate [Mass/Vol] 3.2 mg/dL Normal 2.7-4.8 [facility] Comment on above: Order Comment: Speci men Type: BLOOD SPECIMEN Performed By: #### 2 4321-2, 2776-05, ####[facility]ORATORYCLIA [id number] [place], [place] [address] [place] [address] [place] THERAPY NTon 06-14-2021 THERAPY NT Normal [facility] THERAPY NT Normal [facility] THERAPY NT Normal [facility] US DVT LOWER BILon US DVT LOWER RAINER Normal [facility] ALLIED HEALTHon 06-13-2021 ALLIED HEALTH Normal [facility] Basic metabolic 2000 panelon 06-13-2021 Anion gap [Moles/Vol] 7 mmol/L Low 9-18 [facility] Comment on above: Order Comment: Speci men Type: BLOOD SPECIMEN Performed By: #### 2 4321-2, , 2776-05 ####[facility]ORYCLIA [id number] [address] [place] Calcium [Mass/Vol] 8.8 mg/dL Normal 8.5-10.2 [facility] Comment on above: Order Comment: Speci men Type: BLOOD SPECIMEN Performed By: #### 2 4321-2, , 2776-05 ####[facility]ATORYCLIA [id number] [address] STATES OF [facility] Chloride [Moles/Vol] 120 mmol/L High 97-105 [facility] Comment on above: Order Comment: Speci men Type: BLOOD SPECIMEN Performed By: #### 2 4321-2, , 2776-05 ####[facility]ORYCLIA [id number] [address] [place] CO2 [Moles/Vol] 28 mmol/L Normal 22-30 [facility] Comment on above: Order Comment: Speci men Type: BLOOD SPECIMEN Performed By: #### 2 4321-2, , 2776-05 ####[facility]ORYCLIA [id number] [address] [place] Creatinine [Mass/Vol] 0.78 mg/dL Normal 0.73-1.22 [facility] Comment on above: Order Comment: Speci men Type: BLOOD SPECIMEN Performed By: #### 2 4321-2, , 2776-05 ####[facility]ORYCLIA [id number] [address] [place] GFR/1.73 sq M.predicted MDRD (S/P/Bld) [Vol rate/Area] mL/min/{1.73_m2} Normal [facility] Comment on above: Order [...] Performed By: #### 2 4321-2, , 2776-05 ####[facility]ORATORYCLIA [id number] [place] [address] [place] Glucose [Mass/Vol] 126 mg/dL High 74-99 [facility] Comment on above: Order Comment: [facility] Type: BLOOD SPECIMEN Result Comment: The [place] [employer] (ADA) provides guidance for cutoff [...] Standards of Medical Care in Diabetes 2016, [place] [employer]. Diabetes Care. 2016.39(Suppl 1). Performed By: #### 2 4321-2, , 2776-05 ####[facility]ORATORYCLIA [id number] [place] [address] [place] Potassium [Moles/Vol] 3.6 mmol/L Low 3.7-5.1 [facility] Comment on above: Order Comment: [facility] Type: BLOOD SPECIMEN Performed By: #### 2 4321-2, , 2776-05 ####[facility]ORATORYCLIA [id number] [place] [address] [place] Sodium [Moles/Vol] 155 mmol/L High 136-144 [facility] Comment on above: Order Comment: Speci men Type: BLOOD SPECIMEN Performed By: #### 2 4321-2, , 2776-05 ####[facility]ORYCLIA [id number] [place] [address] [place] Urea nitrogen [Mass/Vol] 36 mg/dL High 9-24 [facility] Comment on above: Order Comment: Speci men Type: BLOOD SPECIMEN Performed By: #### 2 4321-2, , 2776-05 ####[facility]ORATORYCLIA [id number] [place], [place] [address] [place] [address] [place] Anion gap [Moles/Vol] 6 mmol/L Low 9-18 [facility] Comment on above: Order Comment: Speci men Type: BLOOD SPECIMEN Performed By: #### 2 4321-2, 2776-05, ####[facility]ORYCLIA [id number] [place] [address] [place] Calcium [Mass/Vol] 6.5 mg/dL Low 8.5-10.2 [facility] Comment on above: Order Comment: Speci men Type: BLOOD SPECIMEN Performed By: #### 2 4321-2, 2776-05, ####[facility]ORYCLIA [id number] [place] [address] [place] Chloride [Moles/Vol] 124 mmol/L High 97-105 [facility] Comment on above: Order Comment: Speci men Type: BLOOD SPECIMEN Performed By: #### 2 4321-2, 2776-05, ####[facility]ATORYCLIA [id number] [place] [address] [place] CO2 [Moles/Vol] 24 mmol/L Normal 22-30 [facility] [facility] Comment on above: Order Comment: Speci men Type: BLOOD SPECIMEN Performed By: #### 2 4321-2, 2776-05, ####[facility]ORATORYCLIA [id number] [place] [address] [place] Creatinine [Mass/Vol] 0.61 mg/dL Low 0.73-1.22 [facility] Comment on above: Order Comment: Speci men Type: BLOOD SPECIMEN Performed By: #### 2 4321-2, 2776-05, ####[facility] [id number] [place] [address] [place] GFR/1.73 sq M.predicted MDRD (S/P/Bld) [Vol rate/Area] mL/min/{1.73_m2} Normal [facility] Comment on above: Order [...] Performed By: #### 2 4321-2, 2776-05, ####[facility] [id number] [place] [id number] [place] Glucose [Mass/Vol] 100 mg/dL High 74-99 [facility] Comment on above: Order Comment: [facility] Type: BLOOD SPECIMEN Result Comment: The [place] [employer] (ADA) provides guidance for cutoff [...] Standards of Medical Care in Diabetes 2016, [place] [employer]. Diabetes Care. 2016.39(Suppl 1). Performed By: #### 2 4321-2, 7-, ####[facility]ATORYCLIA [id number] [place], [place] [address] [place] [address] STATES OF [facility] Potassium [Moles/Vol] 2.7 mmol/L Low 3.7-5.1 [facility] Comment on above: Order Comment: Speci men Type: BLOOD SPECIMEN Performed By: #### 2 4321-2, 2776-, ####[facility]ORYCLIA [id number] [address] STATES [facility] Sodium [Moles/Vol] 154 mmol/L High 136-144 [facility] Comment on above: Order Comment: Speci men Type: BLOOD SPECIMEN Performed By: #### 2 4321-2, 2776-05, ####[facility]ORYCLIA [id number] [place], [place] [id number] [place] [address] [place] [facility] Urea nitrogen [Mass/Vol] 29 mg/dL High 9-24 [facility] Comment on above: Order Comment: Speci men Type: BLOOD SPECIMEN Performed By: #### 2 4321-2, 2776-05, ####[facility]ORYCLIA [id number] [address] CASE MANAGEMon 06-13-2021 CASE MANAGEM Normal [facility] CBC panel Auto (Bld)on 06-13 Erythrocyte distribution width (RBC) [Ratio] 15.9 % High 11.5-15.0 [facility] Comment on above: Order Comment: Speci men Type: BLOOD SPECIMEN Performed By: #### 5 8410-2 ####[facility]ATORYCLIA [id number] [place], [place] [id number] [place] [address] OF [facility] Hematocrit (Bld) [Volume fraction] 34.3 % Low 39.0-51.0 [facility] Comment on above: Order Comment: Speci men Type: BLOOD SPECIMEN Performed By: #### 5 8410-2 ####[facility]ORYCLIA [id number] [address] Hemoglobin (Bld) [Mass/Vol] 9.9 g/dL Low 13.0-17.0 [facility] Comment on above: Order Comment: Speci men Type: BLOOD SPECIMEN Performed By: #### 5 8410-2 ####[facility]ORYCLIA [id number] [address] MCH (RBC) [Entitic mass] 27.3 pg Normal 26.0-34.0 [facility] Comment on above: Order Comment: Speci men Type: BLOOD SPECIMEN Performed By: #### 5 8410-2 ####[facility]ATORYCLIA [id number] [address] MCHC (RBC) [Mass/Vol] 28.9 g/dL Low 30.5-36.0 [facility] Comment on above: Order Comment: Speci men Type: BLOOD SPECIMEN Performed By: #### 5 8410-2 ####[facility]ATORYCLIA [id number] [address] MCV (RBC) [Entitic vol] 94.5 fL Normal 80.0-100.0 [facility] Comment on above: Order Comment: Speci men Type: BLOOD SPECIMEN Performed By: #### 5 8410-2 ####[facility]ORYCLIA [id number] [address] Nucleated RBC (Bld) [#/Vol] 10*3/uL Normal <0.01 [facility] Comment on above: Order Comment: Speci men Type: BLOOD SPECIMEN Performed By: #### 5 8410-2 ####[facility]ORYCLIA [id number] [address] Platelet mean volume (Bld) [Entitic vol] 11.3 fL Normal 9.0-12.7 [facility] Comment on above: Order Comment: Speci men Type: BLOOD SPECIMEN Performed By: #### 5 8410-2 ####[facility]ORYCLIA [id number] [address] Platelets (Bld) [#/Vol] 269 10*3/uL Normal 150-400 [facility] Comment on above: Order Comment: Speci men Type: BLOOD SPECIMEN Performed By: #### 5 8410-2 ####[facility]ORYCLIA [id number] [address] RBC (Bld) [#/Vol] 3.63 10*6/uL Low 4.20-6.00 [facility] Comment on above: Order Comment: Speci men Type: BLOOD SPECIMEN Performed By: #### 5 8410-2 ####[facility]ORYCLIA [id number] [address] WBC (Bld) [#/Vol] 12.77 10*3/uL High 3.70-11.00 [facility] Comment on above: Order Comment: Speci men Type: BLOOD SPECIMEN Performed By: #### 5 8410-2 ####[facility]ORYCLIA [id number] [address] Gas and Carbon monoxide pane l (BldV)on 06-13-2021 Base excess Calc (BldV) [Moles/Vol] 5.7 mmol/L High 0-2 [facility] Comment on above: Order Comment: Speci men Type: VENOUS BLOOD SPECIMEN Performed By: #### 2 4344-4 ####[facility]ORYCLIA [id number] [address] Body temperature 99.5 [degF] Normal [facility] Comment on above: Order Comment: Speci men Type: VENOUS BLOOD SPECIMEN Performed By: #### 2 4344-4 ####[facility]ATORYCLIA [id number] [address] CALCIUM IONIZED, PH CORRECTED 1.24 mmol/L Normal 1.08-1.30 [facility] Comment on above: Order Comment: Speci men Type: VENOUS BLOOD SPECIMEN Performed By: #### 2 4344-4 ####[facility]ORYCLIA [id number] [address] Calcium.ionized (BldV) [Mass/Vol] 1.23 mmol/L Normal 1.08-1.30 [facility] Comment on above: Order Comment: Speci men Type: VENOUS BLOOD SPECIMEN Performed By: #### 2 4344-4 ####[facility]ORYCLIA [id number] [address] Carboxyhemoglobin (BldV) [Mass fraction] 1.2 % Normal 0.0-2.0 [facility] Comment on above: Order Comment: Speci men Type: VENOUS BLOOD SPECIMEN Result Comment: Carb oxyhemoglobin Reference Range for Smokers: 2.0-8.0% Performed By: #### 2 4344-4 ####[facility]ORYCLIA [id number] [address] CO2 (BldV) [Partial pressure] 48 mm[Hg] Normal 42-55 [facility] Comment on above: Order Comment: Speci men Type: VENOUS BLOOD SPECIMEN Performed By: #### 2 4344-4 ####[facility]ORYCLIA [id number] [address] CO2 [Moles/Vol] 28.2 mmol/L Normal 25-29 [facility] Comment on above: Order Comment: Speci men Type: VENOUS BLOOD SPECIMEN Performed By: #### 2 4344-4 ####[facility]ORYCLIA [id number] [address] CO2 adjusted to patient's actual temperature (BldV) [Partial pressure] 49 mmHg Normal 42-55 [facility] Comment on above: Order Comment: Speci men Type: VENOUS BLOOD SPECIMEN Performed By: #### 2 4344-4 ####[facility]ORYCLIA [id number] [address] Glucose [Mass/Vol] 131 mg/dL High 60-105 [facility] Comment on above: Order Comment: Speci men Type: VENOUS BLOOD SPECIMEN Performed By: #### 2 4344-4 ####[facility]ORYCLIA [id number] [address] OF [facility] HCO3 (Bld) [Moles/Vol] 30.6 mmol/L High 24-28 [facility] Comment on above: Order Comment: Speci men Type: VENOUS BLOOD SPECIMEN Performed By: #### 2 4344-4 ####[facility]CLIA [id number] [address] Hematocrit (Bld) [Volume fraction] 32.8 % Low 39.0-51.0 [facility] Comment on above: Order Comment: Speci men Type: VENOUS BLOOD SPECIMEN Performed By: #### 2 4344-4 ####[facility]CLIA [id number] [address] Hemoglobin (Bld) [Mass/Vol] 10.6 g/dL Low 13.0-17.0 [facility] Comment on above: Order Comment: Speci men Type: VENOUS BLOOD SPECIMEN Performed By: #### 2 4344-4 ####[facility]ORYCLIA [id number] [address] LITERS 6 Liters/min Normal [facility] Comment on above: Order Comment: Speci men Type: VENOUS BLOOD SPECIMEN Performed By: #### 2 4344-4 ####[facility]ORYCLIA [id number] [address] Methemoglobin (Bld) [Mass fraction] 1.0 % Normal 0.0-1.5 [facility] Comment on above: Order Comment: Speci men Type: VENOUS BLOOD SPECIMEN Performed By: #### 2 4344-4 ####[facility]ORYCLIA [id number] [address] O2 THERAPY NC = Nasal Cannula Normal [facility] Comment on above: Order Comment: Speci men Type: VENOUS BLOOD SPECIMEN Performed By: #### 2 4344-4 ####[facility]ORYCLIA [id number] [address] OF [facility] Oxygen (BldV) [Partial pressure] 42 mm[Hg] Normal 35-45 [facility] Comment on above: Order Comment: Speci men Type: VENOUS BLOOD SPECIMEN Performed By: #### 2 4344-4 ####[facility]ORYCLIA [id number] [address] Oxygen adjusted to patient's actual temperature (BldV) [Partial pressure] 43.8 mmHg Normal 35-45 [facility] Comment on above: Order Comment: Speci men Type: VENOUS BLOOD SPECIMEN Performed By: #### 2 4344-4 ####[facility]ORYCLIA [id number] [address] Oxygen saturation in Blood 76.7 % Normal 60-85 [facility] Comment on above: Order Comment: Speci men Type: VENOUS BLOOD SPECIMEN Performed By: #### 2 4344-4 ####[facility]ORYCLIA [id number] [address] Oxyhemoglobin (BldV) [Mass fraction] 75 % Normal 60-85 [facility] Comment on above: Order Comment: Speci men Type: VENOUS BLOOD SPECIMEN Performed By: #### 2 4344-4 ####[facility]ORYCLIA [id number] [address] [place] pH (BldV) 7.42 [pH] Normal 7.32-7.42 [facility] Comment on above: Order Comment: Speci men Type: VENOUS BLOOD SPECIMEN Performed By: #### 2 4344-4 ####[facility]ORYCLIA [id number] [address] pH adjusted to patient's actual temperature (BldV) 7.41 Normal 7.32-7.42 [facility] Comment on above: Order Comment: Speci men Type: VENOUS BLOOD SPECIMEN Performed By: #### 2 4344-4 ####[facility]ORYCLIA [id number] [address] STATES OF [facility] Potassium [Moles/Vol] 3.5 mmol/L Normal 3.5-5.0 [facility] Comment on above: Order Comment: Speci men Type: VENOUS BLOOD SPECIMEN Performed By: #### 2 4344-4 ####[facility]ORYCLIA [id number] [address] STATES OF [facility] Sodium [Moles/Vol] 157 mmol/L High 136-144 [facility] Comment on above: Order Comment: Speci men Type: VENOUS BLOOD SPECIMEN Performed By: #### 2 4344-4 ####[facility]ORYCLIA [id number] [address] STATES [place] [facility] Magnesium SerPl-mCncon 06-13 Magnesium [Mass/Vol] 3.0 mg/dL High 1.7-2.3 [facility] Comment on above: Order Comment: Speci men Type: BLOOD SPECIMEN Performed By: #### 2 4321-2, , 2776-05 ####[facility]ORYCLIA [id number] [address] Magnesium [Mass/Vol] 2.2 mg/dL Normal 1.7-2.3 [facility] Comment on above: Order Comment: Speci men Type: BLOOD SPECIMEN Performed By: #### 2 4321-2, 2776-05, ####[facility]ORYCLIA [id number] [address] [place] Phosphate SerPl-mCncon 06-13 Phosphate [Mass/Vol] 2.2 mg/dL Low 2.7-4.8 [facility] Comment on above: Order Comment: Speci men Type: BLOOD SPECIMEN Performed By: #### 2 4321-2, , 2776-05 ####[facility]ORYCLIA [id number] [address] [facility] Phosphate [Mass/Vol] 1.8 mg/dL Low 2.7-4.8 [facility] Comment on above: Order Comment: Speci men Type: BLOOD SPECIMEN Performed By: #### 2 4321-2, 2777-1, ####[facility]ORYCLIA [id number] [address] OF [facility] XR CHEST 1V FRONTALon 2021 XR CHEST 1V FRONTAL Normal [facility] ALLIED HEALTHon 06-12-2021 ALLIED HEALTH Normal [facility] BRIEF OP NOTon 06-12-2021 BRIEF OP NOT Normal [facility] Bacteria Fld Culton 06-12-19 Bacteria identified Cx Nom (Body fld) CULTURE, BODY FLD: No growth 5 days GRAM STAIN: No organisms seen Moderate Polymorphonuclear leukocytes Normal [facility] Comment on above: Performed By: #### 6 11-4 ####[facility]ORYCLIA [id number] [address] STATES OF [facility] Basic metabolic 2000 panelon 06-12-2021 Anion gap [Moles/Vol] 6 mmol/L Low 9-18 [facility] Comment on above: Order Comment: Speci men Type: BLOOD SPECIMEN Performed By: #### 2 777-1, 11596-2, ####[facility]ATORYCLIA [id number] [address] STATES OF [facility] Calcium [Mass/Vol] 8.7 mg/dL Normal 8.5-10.2 [facility] Comment on above: Order Comment: Speci men Type: BLOOD SPECIMEN Performed By: #### 2 777-1, 40947-1, ####[facility]ORYCLIA [id number] [address] [place] [facility] Chloride [Moles/Vol] 118 mmol/L High 97-105 [facility] Comment on above: Order Comment: Speci men Type: BLOOD SPECIMEN Performed By: #### 2 777-1, 12720-1, ####[facility]ORYCLIA [id number] [place] [address] [place] CO2 [Moles/Vol] 28 mmol/L Normal 22-30 [facility] Comment on above: Order Comment: Speci men Type: BLOOD SPECIMEN Performed By: #### 2 777-1, 11120-5, ####[facility]ATORYCLIA [id number] [place] [address] [place] Creatinine [Mass/Vol] 0.77 mg/dL Normal 0.73-1.22 [facility] Comment on above: Order Comment: Speci men Type: BLOOD SPECIMEN Performed By: #### 2 777-1, , ####[facility]ORYCLIA [id number] [address] [place] GFR/1.73 sq M.predicted MDRD (S/P/Bld) [Vol rate/Area] mL/min/{1.73_m2} Normal [facility] Comment on above: Order [...] actual GFR. Performed By: #### 2 777-1, 27081-0, ####[facility]ATORYCLIA [id number] [place] [id number] [place] Glucose [Mass/Vol] 116 mg/dL High 74-99 [facility] Comment on above: Order Comment: Speci men Type: BLOOD SPECIMEN Result Comment: The [place] [employer] (ADA) provides guidance for cutoff [...] Standards of Medical Care in Diabetes 2016, [place] [employer]. Diabetes Care. 2016.39(Suppl 1). Performed By: #### 2 777-1, 65400-3, ####[facility]ATORYCLIA [id number] [address] STATES OF [facility] Potassium [Moles/Vol] 4.0 mmol/L Normal 3.7-5.1 [facility] Comment on above: Order Comment: Speci men Type: BLOOD SPECIMEN Performed By: #### 2 777-1, , ####[facility]ORYCLIA [id number] [address] [place] [facility] Sodium [Moles/Vol] 152 mmol/L High 136-144 [facility] Comment on above: Order Comment: Speci men Type: BLOOD SPECIMEN Performed By: #### 2 777-1, , ####[facility]ORYCLIA [id number] [address] [place] [facility] Urea nitrogen [Mass/Vol] 34 mg/dL High 9-24 [facility] Comment on above: Order Comment: Speci men Type: BLOOD SPECIMEN Performed By: #### 2 777-1, 08219-1, ####[facility]ORYCLIA [id number] [address] OF [facility] CBC panel Auto (Bld)on 06-12 Erythrocyte distribution width (RBC) [Ratio] 16.1 % High 11.5-15.0 [facility] Comment on above: Order Comment: Speci men Type: BLOOD SPECIMEN Performed By: #### 5 8410-2 ####[facility]ATORYCLIA [id number] [address] Hematocrit (Bld) [Volume fraction] 32.8 % Low 39.0-51.0 [facility] Comment on above: Order Comment: Speci men Type: BLOOD SPECIMEN Performed By: #### 5 8410-2 ####[facility]ORYCLIA [id number] [address] Hemoglobin (Bld) [Mass/Vol] 9.9 g/dL Low 13.0-17.0 [facility] Comment on above: Order Comment: Speci men Type: BLOOD SPECIMEN Performed By: #### 5 8410-2 ####[facility]ORYCLIA [id number] [address] MCH (RBC) [Entitic mass] 28.4 pg Normal 26.0-34.0 [facility] Comment on above: Order Comment: Speci men Type: BLOOD SPECIMEN Performed By: #### 5 8410-2 ####[facility]ORYCLIA [id number] [address] MCHC (RBC) [Mass/Vol] 30.2 g/dL Low 30.5-36.0 [facility] Comment on above: Order Comment: Speci men Type: BLOOD SPECIMEN Performed By: #### 5 8410-2 ####[facility]ORYCLIA [id number] [address] MCV (RBC) [Entitic vol] 94.3 fL Normal 80.0-100.0 [facility] Comment on above: Order Comment: Speci men Type: BLOOD SPECIMEN Performed By: #### 5 8410-2 ####[facility]ORYCLIA [id number] [address] Nucleated RBC (Bld) [#/Vol] 10*3/uL Normal <0.01 [facility] Comment on above: Order Comment: Speci men Type: BLOOD SPECIMEN Performed By: #### 5 8410-2 ####[facility]ORYCLIA [id number] [address] Platelet mean volume (Bld) [Entitic vol] 11.2 fL Normal 9.0-12.7 [facility] Comment on above: Order Comment: Speci men Type: BLOOD SPECIMEN Performed By: #### 5 8410-2 ####[facility]ORYCLIA [id number] [address] [place] Platelets (Bld) [#/Vol] 218 10*3/uL Normal 150-400 [facility] Comment on above: Order Comment: Speci men Type: BLOOD SPECIMEN Performed By: #### 5 8410-2 ####[facility]ORYCLIA [id number] [address] [place] RBC (Bld) [#/Vol] 3.48 10*6/uL Low 4.20-6.00 [facility] Comment on above: Order Comment: Speci men Type: BLOOD SPECIMEN Performed By: #### 5 8410-2 ####[facility]ORYCLIA [id number] [address] [place] [facility] WBC (Bld) [#/Vol] 13.33 10*3/uL High 3.70-11.00 [facility] Comment on above: Order Comment: Speci men Type: BLOOD SPECIMEN Performed By: #### 5 8410-2 ####[facility]ORYCLIA [id number] [address] OF [facility] CONSULT PROGon 06-12-2021 CONSULT PROG Normal [facility] CT [address]N PL[address] PERIT/RETROP FL BIon 06-12-[address] PERIT/RETROP FL BI Normal [facility] HISTORY PHYSICALon HISTORY PHYSICAL Normal [facility] Magnesium SerPl-mCncon 06-12 Magnesium [Mass/Vol] 2.7 mg/dL High 1.7-2.3 [facility] Comment on above: Order Comment: Speci men Type: BLOOD SPECIMEN Performed By: #### 2 777-1, 01171-8, 66482-7 ####[facility]ATORYCLIA [id number] [address] [place] PT panel Coag (PPP)on 2021 INR Coag (PPP) [Relative time] 1.1 {INR} Normal 0.9-1.3 [facility] Comment on above: Order Comment: Speci men Type: BLOOD SPECIMEN Result Comment: Yris min K Antagonist (VKA) Therapeutic Range: INR 2 to 3 (Target INR of 2.5)Note: For patients treated with VKA drugs, such as warfarin, the [place] [employer] 2012 Guideline recommends [...] al. Chest 2012, 141:7S-47SNishimura RA, et al. [facility] 2017, 70: 252-289 Performed By: #### 3 4528-0 ####[facility]ORATORYCLIA [id number] [place] [id number] [place] OF [facility] PT Coag (PPP) [Time] 11.9 s Normal 9.7-13.0 [facility] Comment on above: Order Comment: Speci men Type: BLOOD SPECIMEN Performed By: #### 3 4528-0 ####[facility]ORYCLIA [id number] [place] [id number] [place] Phosphate SerPl-mCncon 06-12 Phosphate [Mass/Vol] 2.2 mg/dL Low 2.7-4.8 [facility] Comment on above: Order Comment: Speci men Type: BLOOD SPECIMEN Performed By: #### 2 777-1, 23229-9, 65073-4 ####[facility]ORYCLIA [id number] [address] STATES OF [facility] XR ABDOMEN 1V SUPINEon 06-12 XR ABDOMEN 1V SUPINE Normal [facility] ALLIED HEALTHon 06-11-2021 ALLIED HEALTH Normal [facility] Bacteria Bld Culton 06-11-19 22 Bacteria identified Cx Nom (Bld) CULTURE, BLOOD: No growth 5 days Normal [facility] Comment on above: Performed By: #### 6 00-7 ####[facility]ORYCLIA [id number] [address] Bacteria identified Cx Nom (Bld) CULTURE, BLOOD: No growth 5 days Normal [facility] Comment on above: Performed By: #### 6 00-7 ####[facility]ORYCLIA [id number] [address] Bacteria Ur Culton 2 Bacteria identified Cx Nom (U) CULTURE, URINE: No growth (<1,000 CFU/ml) Normal [facility] Comment on above: Performed By: #### 6 30-4 ####[facility]ORYCLIA [id number] [address] Basic metabolic 2000 panelon 06-11-2021 Anion gap [Moles/Vol] 9 mmol/L Normal 9-18 [facility] Comment on above: Order Comment: Speci men Type: BLOOD SPECIMEN Performed By: #### 1 9123-9, 2777-1, 03836-2 ####[facility]ORYCLIA [id number] [address] Calcium [Mass/Vol] 8.5 mg/dL Normal 8.5-10.2 [facility] Comment on above: Order Comment: Speci men Type: BLOOD SPECIMEN Performed By: #### 1 9123-9, 2777-1, 13662-2 ####[facility]ATORYCLIA [id number] [place] [address] [place] Chloride [Moles/Vol] 118 mmol/L High 97-105 [facility] Comment on above: Order Comment: Speci men Type: BLOOD SPECIMEN Performed By: #### 1 9123-9, 2776-05, ####[facility]ORYCLIA [id number] [address] [place] CO2 [Moles/Vol] 27 mmol/L Normal 22-30 [facility] Comment on above: Order Comment: Speci men Type: BLOOD SPECIMEN Performed By: #### 1 9123-9, 2776-05, ####[facility]ORYCLIA [id number] [address] [place] Creatinine [Mass/Vol] 0.75 mg/dL Normal 0.73-1.22 [facility] Comment on above: Order Comment: Speci men Type: BLOOD SPECIMEN Performed By: #### 1 9123-9, 2776-05, ####[facility]ORYCLIA [id number] [address] [place] GFR/1.73 sq M.predicted MDRD (S/P/Bld) [Vol rate/Area] mL/min/{1.73_m2} Normal [facility] Comment on above: Order [...] GFR. Performed By: #### 1 9123-9, 27711-04, 26167-0 ####[facility]ATORYCLIA [id number] [place] [address] [place] Glucose [Mass/Vol] 142 mg/dL High 74-99 [facility] Comment on above: Order Comment: Speci men Type: BLOOD SPECIMEN Result Comment: The [place] [employer] (ADA) provides guidance for cutoff [...] Standards of Medical Care in Diabetes 2016, [place] Diabetes Association. Diabetes Care. 2016.39(Suppl 1). Performed By: #### 1 9123-9, 2777-, 77441-1 ####[facility] LABORATORYCLIA [id number] [address] [place] Potassium [Moles/Vol] 3.6 mmol/L Low 3.7-5.1 [facility] Comment on above: Order Comment: Speci men Type: BLOOD SPECIMEN Performed By: #### 1 9123-9, 2776-05, 65234-2 ####[facility]ORATORYCLIA [id number] [address] STATES [facility] Sodium [Moles/Vol] 154 mmol/L High 136-144 [facility] Comment on above: Order Comment: Speci men Type: BLOOD SPECIMEN Performed By: #### 1 9123-9, 27711-04, 23098-2 ####[facility]ORATORYCLIA [id number] [address] [place] Urea nitrogen [Mass/Vol] 31 mg/dL High 9-24 [facility] Comment on above: Order Comment: Speci men Type: BLOOD SPECIMEN Performed By: #### 1 9123-9, 2777-, 96564-0 ####[facility] LABORATORYCLIA [id number] [place] [address] [place] C diff Tox gens Stl Ql MEGAN+p robeon 06-11-2021 C. difficile toxin genes MEGAN+probe Ql (Stl) Negative Normal Negative for C. difficile toxin by PCR [facility] Comment on above: Order Comment: Speci men Type: STOOL SPECIMEN Performed By: #### 5 4067-4 ####[facility] LABORATORYCLIA [id number] [address] CBC W Auto Differential pane l (Bld)on 06-11-2021 Basophils (Bld) [#/Vol] 0.03 10*3/uL Normal <0.11 [facility] Comment on above: Order Comment: Speci men Type: BLOOD SPECIMEN Performed By: #### 5 7021-8 ####[facility]ORATORYCLIA [id number] [address] Basophils/100 WBC (Bld) 0.2 % Normal [facility] Comment on above: Order Comment: Speci men Type: BLOOD SPECIMEN Performed By: #### 5 7021-8 ####[facility]ORATORYCLIA [id number] [address] Differential cell count method Nom (Bld) Auto Normal [facility] Comment on above: Order Comment: Speci men Type: BLOOD SPECIMEN Performed By: #### 5 7021-8 ####[facility]ORATORYCLIA [id number] [address] [place] Eosinophils (Bld) [#/Vol] 0.19 10*3/uL Normal <0.46 [facility] Comment on above: Order Comment: Speci men Type: BLOOD SPECIMEN Performed By: #### 5 7021-8 ####[facility]ORATORYCLIA [id number] [address] Eosinophils/100 WBC (Bld) 1.5 % Normal [facility] Comment on above: Order Comment: Speci men Type: BLOOD SPECIMEN Performed By: #### 5 7021-8 ####[facility]ATORYCLIA [id number] [address] Erythrocyte distribution width (RBC) [Ratio] 16.3 % High 11.5-15.0 [facility] Comment on above: Order Comment: Speci men Type: BLOOD SPECIMEN Performed By: #### 5 7021-8 ####[facility]ORATORYCLIA [id number] [address] Hematocrit (Bld) [Volume fraction] 32.1 % Low 39.0-51.0 [facility] Comment on above: Order Comment: Speci men Type: BLOOD SPECIMEN Performed By: #### 5 7021-8 ####[facility]ORATORYCLIA [id number] [address] Hemoglobin (Bld) [Mass/Vol] 9.3 g/dL Low 13.0-17.0 [facility] Comment on above: Order Comment: Speci men Type: BLOOD SPECIMEN Performed By: #### 5 7021-8 ####[facility]ORATORYCLIA [id number] [address] IMMATURE GRAN % 0.6 % Normal [facility] Comment on above: Order Comment: Speci men Type: BLOOD SPECIMEN Performed By: #### 5 7021-8 ####[facility] LABORATORYCLIA [id number] [address] IMMATURE GRAN ABS 0.08 k/uL Normal <0.10 [facility] Comment on above: Order Comment: Speci men Type: BLOOD SPECIMEN Performed By: #### 5 7021-8 ####[facility] LABORATORYCLIA [id number] [address] Lymphocytes (Bld) [#/Vol] 1.65 10*3/uL Normal 1.00-4.00 [facility] Comment on above: Order Comment: Speci men Type: BLOOD SPECIMEN Performed By: #### 5 7021-8 ####[facility]ORATORYCLIA [id number] [address] Lymphocytes/100 WBC (Bld) 12.8 % Normal [facility] Comment on above: Order Comment: Speci men Type: BLOOD SPECIMEN Performed By: #### 5 7021-8 ####[facility]ATORYCLIA [id number] [address] MCH (RBC) [Entitic mass] 27.2 pg Normal 26.0-34.0 [facility] Comment on above: Order Comment: Speci men Type: BLOOD SPECIMEN Performed By: #### 5 7021-8 ####[facility]ATORYCLIA [id number] [address] MCHC (RBC) [Mass/Vol] 29.0 g/dL Low 30.5-36.0 [facility] Comment on above: Order Comment: Speci men Type: BLOOD SPECIMEN Performed By: #### 5 7021-8 ####[facility]ATORYCLIA [id number] [address] MCV (RBC) [Entitic vol] 93.9 fL Normal 80.0-100.0 [facility] Comment on above: Order Comment: Speci men Type: BLOOD SPECIMEN Performed By: #### 5 7021-8 ####[facility]ORATORYCLIA [id number] [address] Monocytes (Bld) [#/Vol] 0.68 10*3/uL Normal <0.87 [facility] Comment on above: Order Comment: Speci men Type: BLOOD SPECIMEN Performed By: #### 5 7021-8 ####[facility]ORATORYCLIA [id number] [address] Monocytes/100 WBC (Bld) 5.3 % Normal [facility] Comment on above: Order Comment: Speci men Type: BLOOD SPECIMEN Performed By: #### 5 7021-8 ####[facility]ORATORYCLIA [id number] [address] Neutrophils (Bld) [#/Vol] 10.22 10*3/uL High 1.45-7.50 [facility] Comment on above: Order Comment: Speci men Type: BLOOD SPECIMEN Performed By: #### 5 7021-8 ####[facility]ORATORYCLIA [id number] [address] Neutrophils/100 WBC (Bld) 79.6 % Normal [facility] Comment on above: Order Comment: Speci men Type: BLOOD SPECIMEN Performed By: #### 5 7021-8 ####[facility]ORATORYCLIA [id number] [address] Nucleated RBC (Bld) [#/Vol] 10*3/uL Normal <0.01 [facility] Comment on above: Order Comment: Speci men Type: BLOOD SPECIMEN Performed By: #### 5 7021-8 ####[facility]ORATORYCLIA [id number] [address] Nucleated RBC/100 WBC (Bld) [Ratio] 0.0 /100 WBC Normal 0.0 [facility] Comment on above: Order Comment: Speci men Type: BLOOD SPECIMEN Performed By: #### 5 7021-8 ####[facility]ORATORYCLIA [id number] [address] Platelet mean volume (Bld) [Entitic vol] 11.1 fL Normal 9.0-12.7 [facility] Comment on above: Order Comment: Speci men Type: BLOOD SPECIMEN Performed By: #### 5 7021-8 ####[facility] LABORATORYCLIA [id number] [address] Platelets (Bld) [#/Vol] 188 10*3/uL Normal 150-400 [facility] Comment on above: Order Comment: Speci men Type: BLOOD SPECIMEN Performed By: #### 5 7021-8 ####[facility]ORATORYCLIA [id number] [address] OF [facility] RBC (Bld) [#/Vol] 3.42 10*6/uL Low 4.20-6.00 [facility] Comment on above: Order Comment: Speci men Type: BLOOD SPECIMEN Performed By: #### 5 7021-8 ####[facility]ORATORYCLIA [id number] [address] WBC (Bld) [#/Vol] 12.85 10*3/uL High 3.70-11.00 [facility] Comment on above: Order Comment: Speci men Type: BLOOD SPECIMEN Performed By: #### 5 7021-8 ####[facility]ORATORYCLIA [id number] [address] CBC panel Auto (Bld)on 06-11 Erythrocyte distribution width (RBC) [Ratio] 16.2 % High 11.5-15.0 [facility] Comment on above: Order Comment: Speci men Type: BLOOD SPECIMEN Performed By: #### 5 8410-2 ####[facility]ORATORYCLIA [id number] [address] Hematocrit (Bld) [Volume fraction] 34.5 % Low 39.0-51.0 [facility] Comment on above: Order Comment: Speci men Type: BLOOD SPECIMEN Performed By: #### 5 8410-2 ####[facility]ATORYCLIA [id number] [address] Hemoglobin (Bld) [Mass/Vol] 10.3 g/dL Low 13.0-17.0 [facility] Comment on above: Order Comment: Speci men Type: BLOOD SPECIMEN Performed By: #### 5 8410-2 ####[facility]ATORYCLIA [id number] [address] MCH (RBC) [Entitic mass] 28.1 pg Normal 26.0-34.0 [facility] Comment on above: Order Comment: Speci men Type: BLOOD SPECIMEN Performed By: #### 5 8410-2 ####[facility]ATORYCLIA [id number] [address] MCHC (RBC) [Mass/Vol] 29.9 g/dL Low 30.5-36.0 [facility] Comment on above: Order Comment: Speci men Type: BLOOD SPECIMEN Performed By: #### 5 8410-2 ####[facility]ATORYCLIA [id number] [address] MCV (RBC) [Entitic vol] 94.3 fL Normal 80.0-100.0 [facility] Comment on above: Order Comment: Speci men Type: BLOOD SPECIMEN Performed By: #### 5 8410-2 ####[facility]ORATORYCLIA [id number] [address] Nucleated RBC (Bld) [#/Vol] 10*3/uL Normal <0.01 [facility] Comment on above: Order Comment: Speci men Type: BLOOD SPECIMEN Performed By: #### 5 8410-2 ####[facility]ORATORYCLIA [id number] [address] Platelet mean volume (Bld) [Entitic vol] 10.9 fL Normal 9.0-12.7 [facility] Comment on above: Order Comment: Speci men Type: BLOOD SPECIMEN Performed By: #### 5 8410-2 ####[facility]ATORYCLIA [id number] [address] Platelets (Bld) [#/Vol] 210 10*3/uL Normal 150-400 [facility] Comment on above: Order Comment: Speci men Type: BLOOD SPECIMEN Performed By: #### 5 8410-2 ####[facility]ATORYCLIA [id number] [address] RBC (Bld) [#/Vol] 3.66 10*6/uL Low 4.20-6.00 [facility] Comment on above: Order Comment: Speci men Type: BLOOD SPECIMEN Performed By: #### 5 8410-2 ####[facility]ATORYCLIA [id number] [address] WBC (Bld) [#/Vol] 13.03 10*3/uL High 3.70-11.00 [facility] Comment on above: Order Comment: Speci men Type: BLOOD SPECIMEN Performed By: #### 5 8410-2 ####[facility]ORATORYCLIA [id number] [address] OF [facility] CONSULT PROGon 06-11-2021 CONSULT PROG Normal [facility] CONSULT PROG Normal [facility] CONSULT PROG Normal [facility] CT ABD/PEL W IVCONon 022 CT ABD/PEL W IVCON Invalid Interpretation Code [facility] Magnesium SerPl-mCncon 06-11 Magnesium [Mass/Vol] 2.7 mg/dL High 1.7-2.3 [facility] Comment on above: Order Comment: Speci men Type: BLOOD SPECIMEN Performed By: #### 1 9123-9, 2777-1, 92993-8 ####[facility]ORATORYCLIA [id number] [address] OF [facility] Phosphate SerPl-mCncon 06-11 Phosphate [Mass/Vol] 2.5 mg/dL Low 2.7-4.8 [facility] Comment on above: Order Comment: Speci men Type: BLOOD SPECIMEN Performed By: #### 1 9123-9, 2777-1, 39629-0 ####[facility]ORATORYCLIA [id number] [address] STATES OF [facility] Basic metabolic 2000 panelon 06-10-2021 Anion gap [Moles/Vol] 7 mmol/L Low 9-18 [facility] Comment on above: Order Comment: Speci men Type: BLOOD SPECIMEN Performed By: #### 2 777-1, 07560-5, 74239-2, HFP ####[facility]ATORYCLIA [id number] [address] STATES [place] [facility] Calcium [Mass/Vol] 8.5 mg/dL Normal 8.5-10.2 [facility] Comment on above: Order Comment: Speci men Type: BLOOD SPECIMEN Performed By: #### 2 777-1, 36928-6, , [facility] ####[facility]ORATORYCLIA [id number] [address] STATES OF [facility] Chloride [Moles/Vol] 118 mmol/L High 97-105 [facility] Comment on above: Order Comment: Speci men Type: BLOOD SPECIMEN Performed By: #### 2 777-1, 57197-9, , HFP ####[facility]ORATORYCLIA [id number] [address] OF [facility] CO2 [Moles/Vol] 26 mmol/L Normal 22-30 [facility] Comment on above: Order Comment: Speci men Type: BLOOD SPECIMEN Performed By: #### 2 777-1, , , [facility] ####[facility]ORATORYCLIA [id number] [address] STATES [place] [facility] Creatinine [Mass/Vol] 0.70 mg/dL Low 0.73-1.22 [facility] Comment on above: Order Comment: Speci men Type: BLOOD SPECIMEN Performed By: #### 2 777-1, , , [facility] ####[facility]ORATORYCLIA [id number] [address] [place] GFR/1.73 sq M.predicted MDRD (S/P/Bld) [Vol rate/Area] mL/min/{1.73_m2} Normal [facility] Comment on above: Order [...] actual GFR. Performed By: #### 2 777-1, 22539-9, , [facility] ####[facility]ORATORYCLIA [id number] [place] [address] [place] Glucose [Mass/Vol] 135 mg/dL High 74-99 [facility] Comment on above: Order Comment: Speci men Type: BLOOD SPECIMEN Result Comment: The [place] Diabetes Association (ADA) provides guidance for cutoff [...] Standards of Medical Care in Diabetes 2016, [place] [employer]. Diabetes Care. 2016.39(Suppl 1). Performed By: #### 2 777-1, 30011-4, , [facility] ####[facility]ORATORYCLIA [id number] [place] [address] [place] Potassium [Moles/Vol] 3.9 mmol/L Normal 3.7-5.1 [facility] Comment on above: Order Comment: Speci men Type: BLOOD SPECIMEN Performed By: #### 2 777-1, 33198-6, , [facility] ####[facility]ORATORYCLIA [id number] [place] [address] [place] Sodium [Moles/Vol] 151 mmol/L High 136-144 [facility] Comment on above: Order Comment: Speci men Type: BLOOD SPECIMEN Performed By: #### 2 777-1, 89623-8, , [facility] ####[facility] LABORATORYCLIA [id number] [place] [address] [place] Urea nitrogen [Mass/Vol] 27 mg/dL High 9-24 [facility] Comment on above: Order Comment: Speci men Type: BLOOD SPECIMEN Performed By: #### 2 777-1, 30444-7, 11537-8, HFP ####[facility]ORATORYCLIA [id number] [address] CASE MANAGEMon 06-10-2021 CASE MANAGEM Normal [facility] CBC panel Auto (Bld)on 06-10 Erythrocyte distribution width (RBC) [Ratio] 16.2 % High 11.5-15.0 [facility] Comment on above: Order Comment: Speci men Type: BLOOD SPECIMEN Performed By: #### 5 8410-2 ####[facility]ORATORYCLIA [id number] [address] Hematocrit (Bld) [Volume fraction] 34.8 % Low 39.0-51.0 [facility] Comment on above: Order Comment: Speci men Type: BLOOD SPECIMEN Performed By: #### 5 8410-2 ####[facility]ORATORYCLIA [id number] [address] Hemoglobin (Bld) [Mass/Vol] 10.2 g/dL Low 13.0-17.0 [facility] Comment on above: Order Comment: Speci men Type: BLOOD SPECIMEN Performed By: #### 5 8410-2 ####[facility]ORATORYCLIA [id number] [address] MCH (RBC) [Entitic mass] 27.1 pg Normal 26.0-34.0 [facility] Comment on above: Order Comment: Speci men Type: BLOOD SPECIMEN Performed By: #### 5 8410-2 ####[facility]ORATORYCLIA [id number] [address] MCHC (RBC) [Mass/Vol] 29.3 g/dL Low 30.5-36.0 [facility] Comment on above: Order Comment: Speci men Type: BLOOD SPECIMEN Performed By: #### 5 8410-2 ####[facility]ORATORYCLIA [id number] [address] MCV (RBC) [Entitic vol] 92.6 fL Normal 80.0-100.0 [facility] Comment on above: Order Comment: Speci men Type: BLOOD SPECIMEN Performed By: #### 5 8410-2 ####[facility]ORATORYCLIA [id number] [address] Nucleated RBC (Bld) [#/Vol] 10*3/uL Normal <0.01 [facility] Comment on above: Order Comment: Speci men Type: BLOOD SPECIMEN Performed By: #### 5 8410-2 ####[facility]ORATORYCLIA [id number] [address] Platelet mean volume (Bld) [Entitic vol] 10.4 fL Normal 9.0-12.7 [facility] Comment on above: Order Comment: Speci men Type: BLOOD SPECIMEN Performed By: #### 5 8410-2 ####[facility]ORATORYCLIA [id number] [address] Platelets (Bld) [#/Vol] 206 10*3/uL Normal 150-400 [facility] Comment on above: Order Comment: Speci men Type: BLOOD SPECIMEN Performed By: #### 5 8410-2 ####[facility]ORATORYCLIA [id number] [address] OF [facility] RBC (Bld) [#/Vol] 3.76 10*6/uL Low 4.20-6.00 [facility] Comment on above: Order Comment: Speci men Type: BLOOD SPECIMEN Performed By: #### 5 8410-2 ####[facility]ORATORYCLIA [id number] [address] WBC (Bld) [#/Vol] 11.36 10*3/uL High 3.70-11.00 [facility] Comment on above: Order Comment: Speci men Type: BLOOD SPECIMEN Performed By: #### 5 8410-2 ####[facility] LABORATORYCLIA [id number] [place], [place] [id number] [place] [address] HEPATIC FUNCTION PNLon 06-10 Albumin [Mass/Vol] 3.1 g/dL Low 3.9-4.9 [facility] Comment on above: Order Comment: Speci men Type: BLOOD SPECIMEN Performed By: #### 2 777-1, 21582-3, , HFP ####[facility]ORATORYCLIA [id number] [place], [place] [id number] [place] [address] ALP [Catalytic activity/Vol] 73 U/L Normal 38-113 [facility] Comment on above: Order Comment: Speci men Type: BLOOD SPECIMEN Performed By: #### 2 777-1, 09471-6, , HFP ####[facility]ORATORYCLIA [id number] [address] ALT With P-5'-P [Catalytic activity/Vol] 64 U/L High 10-54 [facility] Comment on above: Order Comment: Speci men Type: BLOOD SPECIMEN Performed By: #### 2 777-1, 14176-2, , HFP ####[facility]ORATORYCLIA [id number] [address] AST With P-5'-P [Catalytic activity/Vol] 44 U/L High 14-40 [facility] Comment on above: Order Comment: Speci men Type: BLOOD SPECIMEN Performed By: #### 2 777-1, 06175-3, , HFP ####[facility]ORATORYCLIA [id number] [place], [place] [id number] [place] [address] Bilirubin [Mass/Vol] 0.5 mg/dL Normal 0.2-1.3 [facility] Comment on above: Order Comment: Speci men Type: BLOOD SPECIMEN Performed By: #### 2 777-1, 02815-0, , HFP ####[facility] LABORATORYCLIA [id number] [address] Bilirubin.conjugated [Mass/Vol] mg/dL Normal <0.2 [facility] Comment on above: Order Comment: Speci men Type: BLOOD SPECIMEN Performed By: #### 2 777-1, 05005-4, , [facility] ####[facility] LABORATORYCLIA [id number] [place] [address] [place] [facility] Protein [Mass/Vol] 5.7 g/dL Low 6.3-8.0 [facility] Comment on above: Order Comment: Speci men Type: BLOOD SPECIMEN Performed By: #### 2 777-1, 35996-1, , [facility] ####[facility] LABORATORYCLIA [id number] [place] [address] [facility] LEVETIRACETAMon 06-10-2021 levETIRAcetam [Mass/Vol] 57.7 ug/mL High 12.0-46.0 [facility] Comment on above: Order [...] developed and its performance characteristics determined by [facility]'s [facility] Pathology and Laboratory Medicine [place] ([facility]). It has not been cleared or approved by the FDA. [facility] is regulated under CLIA as qualified to perform high complexity testing. This test is used for clinical purposes. It should not be regarded as investigational or for research. Performed By: #### L EVET ####[facility] LABCLIA [id number] [place] [address] [place] Magnesium SerPl-mCncon 06-10 Magnesium [Mass/Vol] 2.7 mg/dL High 1.7-2.3 [facility] Comment on above: Order Comment: Speci men Type: BLOOD SPECIMEN Performed By: #### 2 777-1, 58149-2, , [facility] ####[facility] LABORATORYCLIA [id number] [place] [address] [place] Phosphate SerPl-mCncon 06-10 Phosphate [Mass/Vol] 1.8 mg/dL Low 2.7-4.8 [facility] Comment on above: Order Comment: Speci men Type: BLOOD SPECIMEN Performed By: #### 2 777-1, 29366-6, , [facility] ####[facility] LABORATORYCLIA [id number] [place] [address] [place] ALLIED HEALTHon 06-09-2021 ALLIED HEALTH Normal [facility] ALLIED HEALTH Normal [facility] ALLIED HEALTH Normal [facility] ALLIED HEALTH Normal [facility] Basic metabolic 2000 panelon 06-09-2021 Anion gap [Moles/Vol] 8 mmol/L Low 9-18 [facility] Comment on above: Order Comment: Speci men Type: BLOOD SPECIMEN Performed By: #### 2 4321-2, 2776-05, ####[facility] LABORATORYCLIA [id number] [place] [address] [place] Calcium [Mass/Vol] 8.3 mg/dL Low 8.5-10.2 [facility] Comment on above: Order Comment: Speci men Type: BLOOD SPECIMEN Performed By: #### 2 4321-2, 2776-05, ####[facility] LABORATORYCLIA [id number] [place] [address] [place] Chloride [Moles/Vol] 116 mmol/L High 97-105 [facility] Comment on above: Order Comment: Speci men Type: BLOOD SPECIMEN Performed By: #### 2 4321-2, 2776-05, ####[facility]ORATORYCLIA [id number] [place] [address] [place] CO2 [Moles/Vol] 27 mmol/L Normal 22-30 [facility] Comment on above: Order Comment: Speci men Type: BLOOD SPECIMEN Performed By: #### 2 4321-2, 2777-, ####[facility]ORATORYCLIA [id number] [place] [address] [place] Creatinine [Mass/Vol] 0.70 mg/dL Low 0.73-1.22 [facility] Comment on above: Order Comment: Speci men Type: BLOOD SPECIMEN Performed By: #### 2 4321-2, 27711-04, ####[facility] LABORATORYCLIA [id number] [place] [address] [place] GFR/1.73 sq M.predicted MDRD (S/P/Bld) [Vol rate/Area] mL/min/{1.73_m2} Normal [facility] Comment on above: Order [...] GFR. Performed By: #### 2 4321-2, 2777, ####[facility] LABORATORYCLIA [id number] [place] [address] [place] Glucose [Mass/Vol] 123 mg/dL High 74-99 [facility] Comment on above: Order Comment: Speci men Type: BLOOD SPECIMEN Result Comment: The [place] [employer] (ADA) provides guidance for cutoff [...] Standards of Medical Care in Diabetes 2016, [place] [employer]. Diabetes Care. 2016.39(Suppl 1). Performed By: #### 2 4321-2, 2776-05, ####[facility]ORATORYCLIA [id number] [address] [place] [facility] [facility] SYSTEM Potassium [Moles/Vol] 3.5 mmol/L Low 3.7-5.1 [facility] Comment on above: Order Comment: Speci men Type: BLOOD SPECIMEN Performed By: #### 2 4321-2, 2776-05, ####[facility]ATORYCLIA [id number] [address] Sodium [Moles/Vol] 151 mmol/L High 136-144 [facility] Comment on above: Order Comment: Speci men Type: BLOOD SPECIMEN Performed By: #### 2 4321-2, 2776-05, ####[facility]ATORYCLIA [id number] [address] Urea nitrogen [Mass/Vol] 39 mg/dL High 9-24 [facility] Comment on above: Order Comment: Speci men Type: BLOOD SPECIMEN Performed By: #### 2 4321-2, 2776-05, ####[facility]ATORYCLIA [id number] [address] CBC panel Auto (Bld)on 06-09 Erythrocyte distribution width (RBC) [Ratio] 16.2 % High 11.5-15.0 [facility] Comment on above: Order Comment: Speci men Type: BLOOD SPECIMEN Performed By: #### 5 8410-2 ####[facility]ATORYCLIA [id number] [address] Hematocrit (Bld) [Volume fraction] 33.7 % Low 39.0-51.0 [facility] Comment on above: Order Comment: Speci men Type: BLOOD SPECIMEN Performed By: #### 5 8410-2 ####[facility]ATORYCLIA [id number] [address] Hemoglobin (Bld) [Mass/Vol] 10.2 g/dL Low 13.0-17.0 [facility] Comment on above: Order Comment: Speci men Type: BLOOD SPECIMEN Performed By: #### 5 8410-2 ####[facility]ATORYCLIA [id number] [address] MCH (RBC) [Entitic mass] 27.4 pg Normal 26.0-34.0 [facility] Comment on above: Order Comment: Speci men Type: BLOOD SPECIMEN Performed By: #### 5 8410-2 ####[facility]ORYCLIA [id number] [address] MCHC (RBC) [Mass/Vol] 30.3 g/dL Low 30.5-36.0 [facility] Comment on above: Order Comment: Speci men Type: BLOOD SPECIMEN Performed By: #### 5 8410-2 ####[facility]ORYCLIA [id number] [address] MCV (RBC) [Entitic vol] 90.6 fL Normal 80.0-100.0 [facility] Comment on above: Order Comment: Speci men Type: BLOOD SPECIMEN Performed By: #### 5 8410-2 ####[facility]ATORYCLIA [id number] [address] Nucleated RBC (Bld) [#/Vol] 10*3/uL Normal <0.01 [facility] Comment on above: Order Comment: Speci men Type: BLOOD SPECIMEN Performed By: #### 5 8410-2 ####[facility]ATORYCLIA [id number] [address] Platelet mean volume (Bld) [Entitic vol] 10.3 fL Normal 9.0-12.7 [facility] Comment on above: Order Comment: Speci men Type: BLOOD SPECIMEN Performed By: #### 5 8410-2 ####[facility]ATORYCLIA [id number] [address] Platelets (Bld) [#/Vol] 219 10*3/uL Normal 150-400 [facility] Comment on above: Order Comment: Speci men Type: BLOOD SPECIMEN Performed By: #### 5 8410-2 ####[facility]ORYCLIA [id number] [address] OF [facility] RBC (Bld) [#/Vol] 3.72 10*6/uL Low 4.20-6.00 [facility] Comment on above: Order Comment: Speci men Type: BLOOD SPECIMEN Performed By: #### 5 8410-2 ####[facility]ORYCLIA [id number] [address] WBC (Bld) [#/Vol] 13.02 10*3/uL High 3.70-11.00 [facility] Comment on above: Order Comment: Speci men Type: BLOOD SPECIMEN Performed By: #### 5 8410-2 ####[facility]ATORYCLIA [id number] [address] CONSULT PROGon 06-09-2021 CONSULT PROG Normal [facility] CONSULT PROG Normal [facility] CT BRAIN WO IVCONon 06-09-[address] BRAIN WO IVCON Normal [facility] Magnesium SerPl-mCncon 06-09 Magnesium [Mass/Vol] 2.8 mg/dL High 1.7-2.3 [facility] Comment on above: Order Comment: Speci men Type: BLOOD SPECIMEN Performed By: #### 2 4321-2, 2777-1, 37871-7 ####[facility]ATORYCLIA [id number] [address] [place] NURSING PROGon 06-09-2021 NURSING PROG Normal [facility] NUTRITIONon 06-09-2021 NUTRITION Normal [facility] PT EDon 06-09-2021 PT ED Normal [facility] Phosphate SerPl-mCncon 06-09 Phosphate [Mass/Vol] 2.2 mg/dL Low 2.7-4.8 [facility] Comment on above: Order Comment: Speci men Type: BLOOD SPECIMEN Performed By: #### 2 4321-2, 2777-1, 42545-4 ####[facility]ATORYCLIA [id number] [address] Vancomycin random [Mass/Vol] on 06-09-2021 Vancomycin [Mass/Vol] 18.9 ug/mL Normal 10.0-20.0 [facility] Comment on above: Order Comment: Speci men Type: BLOOD SPECIMEN Result Comment: Refe rence ranges and high/low indicator flags are provided as general guidelines only. The treating physician must determine appropriate target levels/dosing based on the specific clinical situation. Performed By: #### 4 091-5 ####[facility]ATORYCLIA [id number] [address] XR ABD 2V SUPINE W UPR/DECUB /CTLon 06-09-2021 XR ABD 2V SUPINE W UPR/DECUB/CTL Normal [facility] XR CHEST 1V FRONTALon 2021 XR CHEST 1V FRONTAL Normal [facility] XR NECK SOFT TISSUE 2V AP/LA Ton 06-09-2021 XR NECK SOFT TISSUE 2V AP/LAT Normal [facility] XR SKULL 2V AP/LATon 022 XR SKULL 2V AP/LAT Normal [facility] ALLIED HEALTHon 06-08-2021 ALLIED HEALTH Normal [facility] ANES POSTPROC EVALon 022 ANES POSTPROC EVAL Normal [facility] ANES PRE-OPon 06-08-2021 ANES PRE-OP Normal [facility] BRIEF OP NOTon 06-08-2021 BRIEF OP NOT Normal [facility] Bacteria Spec Anaerobe Culto n 06-08-2021 Bacteria identified Anaer cx Nom (Unsp spec) ORGANISM ID: 1 Rare Staphylococcus saccharolyticus Identification performed by [facility] CC-Main See scanned document for susceptibility report Normal [facility] Comment on above: Performed By: #### 6 462-6, 635-3 ####[facility]ATORYCLIA [id number] [address] [place] Bacteria Wnd Culton 06-08-19 22 Bacteria identified Cx Nom (Wound) CULTURE, INTRAOPERATIVE HARDWARE: No growth 5 days GRAM STAIN: Not performed on specimen type Normal [facility] Comment on above: Performed By: #### 6 462-6, 635-3 ####[facility]ATORYCLIA [id number] [address] [place] Basic metabolic 2000 panelon 06-08-2021 Anion gap [Moles/Vol] 9 mmol/L Normal 9-18 [facility] Comment on above: Order Comment: Speci men Type: BLOOD SPECIMEN Performed By: #### 2 4321-2, 2776-05, ####[facility]ATORYCLIA [id number] [address] [place] Calcium [Mass/Vol] 8.7 mg/dL Normal 8.5-10.2 [facility] Comment on above: Order Comment: Speci men Type: BLOOD SPECIMEN Performed By: #### 2 4321-2, 2776-05, ####[facility]ATORYCLIA [id number] [place] [address] [place] Chloride [Moles/Vol] 113 mmol/L High 97-105 [facility] Comment on above: Order Comment: Speci men Type: BLOOD SPECIMEN Performed By: #### 2 4321-2, 2776-05, ####[facility]ATORYCLIA [id number] [place] [address] [place] CO2 [Moles/Vol] 26 mmol/L Normal 22-30 [facility] Comment on above: Order Comment: Speci men Type: BLOOD SPECIMEN Performed By: #### 2 4321-2, 2776-05, ####[facility]ATORYCLIA [id number] [place] [address] [place] Creatinine [Mass/Vol] 0.68 mg/dL Low 0.73-1.22 [facility] Comment on above: Order Comment: Speci men Type: BLOOD SPECIMEN Performed By: #### 2 4321-2, 2776-, ####[facility]ATORYCLIA [id number] [place] [address] [place] GFR/1.73 sq M.predicted MDRD (S/P/Bld) [Vol rate/Area] mL/min/{1.73_m2} Normal [facility] Comment on above: Order [...] Performed By: #### 2 4321-2, 2776-, ####[facility]GIA [id number] [place] [address] [place] Glucose [Mass/Vol] 146 mg/dL High 74-99 [facility] Comment on above: Order Comment: Speci [facility] Type: BLOOD SPECIMEN Result Comment: The [place] [employer] (ADA) provides guidance for cutoff [...] Standards of Medical Care in Diabetes 2016, [place] [employer]. Diabetes Care. 2016.39(Suppl 1). Performed By: #### 2 4321-2, 7-, ####[facility]ATORYCLIA [id number] [address] STATES OF [facility] Potassium [Moles/Vol] 3.6 mmol/L Low 3.7-5.1 [facility] Comment on above: Order Comment: Speci men Type: BLOOD SPECIMEN Performed By: #### 2 4321-2, 2776-, ####[facility]ATORYCLIA [id number] [address] Sodium [Moles/Vol] 148 mmol/L High 136-144 [facility] Comment on above: Order Comment: Speci men Type: BLOOD SPECIMEN Performed By: #### 2 4321-2, 2776-05, ####[facility]ATORYCLIA [id number] [address] Urea nitrogen [Mass/Vol] 36 mg/dL High 9-24 [facility] Comment on above: Order Comment: Speci men Type: BLOOD SPECIMEN Performed By: #### 2 4321-2, 2776-05, ####[facility]ATORYCLIA [id number] [address] CASE MANAGEMon 06-08-2021 CASE MANAGEM Normal [facility] CBC panel Auto (Bld)on 06-08 Erythrocyte distribution width (RBC) [Ratio] 16.0 % High 11.5-15.0 [facility] Comment on above: Order Comment: Speci men Type: BLOOD SPECIMEN Performed By: #### 5 8410-2 ####[facility]ATORYCLIA [id number] [address] Hematocrit (Bld) [Volume fraction] 38.4 % Low 39.0-51.0 [facility] Comment on above: Order Comment: Speci men Type: BLOOD SPECIMEN Performed By: #### 5 8410-2 ####[facility]ATORYCLIA [id number] [address] Hemoglobin (Bld) [Mass/Vol] 12.1 g/dL Low 13.0-17.0 [facility] Comment on above: Order Comment: Speci men Type: BLOOD SPECIMEN Performed By: #### 5 8410-2 ####[facility]ATORYCLIA [id number] [address] MCH (RBC) [Entitic mass] 28.3 pg Normal 26.0-34.0 [facility] Comment on above: Order Comment: Speci men Type: BLOOD SPECIMEN Performed By: #### 5 8410-2 ####[facility]ATORYCLIA [id number] [address] MCHC (RBC) [Mass/Vol] 31.5 g/dL Normal 30.5-36.0 [facility] Comment on above: Order Comment: Speci men Type: BLOOD SPECIMEN Performed By: #### 5 8410-2 ####[facility]ATORYCLIA [id number] [address] MCV (RBC) [Entitic vol] 89.9 fL Normal 80.0-100.0 [facility] Comment on above: Order Comment: Speci men Type: BLOOD SPECIMEN Performed By: #### 5 8410-2 ####[facility]ATORYCLIA [id number] [address] Nucleated RBC (Bld) [#/Vol] 10*3/uL Normal <0.01 [facility] Comment on above: Order Comment: Speci men Type: BLOOD SPECIMEN Performed By: #### 5 8410-2 ####[facility]ATORYCLIA [id number] [address] Platelet mean volume (Bld) [Entitic vol] 10.3 fL Normal 9.0-12.7 [facility] Comment on above: Order Comment: Speci men Type: BLOOD SPECIMEN Performed By: #### 5 8410-2 ####[facility]ATORYCLIA [id number] [address] Platelets (Bld) [#/Vol] 236 10*3/uL Normal 150-400 [facility] Comment on above: Order Comment: Speci men Type: BLOOD SPECIMEN Performed By: #### 5 8410-2 ####[facility]ATORYCLIA [id number] [address] RBC (Bld) [#/Vol] 4.27 10*6/uL Normal 4.20-6.00 [facility] Comment on above: Order Comment: Speci men Type: BLOOD SPECIMEN Performed By: #### 5 8410-2 ####[facility]ATORYCLIA [id number] [address] WBC (Bld) [#/Vol] 11.06 10*3/uL High 3.70-11.00 [facility] Comment on above: Order Comment: Speci men Type: BLOOD SPECIMEN Performed By: #### 5 8410-2 ####[facility]ATORYCLIA [id number] [address] CONSULT PROGon 06-08-2021 CONSULT PROG Normal [facility] CT BRAIN WO IVCONon 06-08-[address] BRAIN WO IVCON Normal [facility] Magnesium SerPl-mCncon 06-08 Magnesium [Mass/Vol] 2.8 mg/dL High 1.7-2.3 [facility] Comment on above: Order Comment: Speci men Type: BLOOD SPECIMEN Performed By: #### 2 4321-2, 2777-1, 53012-2 ####[facility]ATORYCLIA [id number] [address] Microorganism Spec Culton Microorganism identified Cx Nom (Unsp spec) CULTURE, FUNGAL: No Fungus isolated after 28 days FUNGAL SMEAR: No fungus seen Normal [facility] Comment on above: Performed By: #### 1 1475-1 ####[facility]ATORYCLIA [id number] [address] OF [facility] NURSING PROGon 06-08-2021 NURSING PROG Normal [facility] OPERATIVE NOon 06-08-2021 OPERATIVE NO Normal [facility] OPERATIVE NO Normal [facility] PT panel Coag (PPP)on 2021 INR Coag (PPP) [Relative time] 1.1 {INR} Normal 0.9-1.3 [facility] Comment on above: Order Comment: Speci men Type: BLOOD SPECIMEN Result Comment: Yris min K Antagonist (VKA) Therapeutic Range: INR 2 to 3 (Target INR of 2.5)Note: For patients treated with VKA drugs, such as warfarin, the [place] [employer] 2012 Guideline recommends [...] al. Chest 2012, 141:7S-47SNishimpatricia RA, et al. [facility] 2017, 70: 252-289 Performed By: #### 3 4528-0, 55117-1 ####[facility]ORATORYCLIA [id number] [place] [address] [place] PT Coag (PPP) [Time] 11.9 s Normal 9.7-13.0 [facility] Comment on above: Order Comment: Speci men Type: BLOOD SPECIMEN Performed By: #### 3 4528-0, 58524-1 ####[facility]ORATORYCLIA [id number] [place] [id number] [place] Phosphate SerPl-mCncon 06-08 Phosphate [Mass/Vol] 2.3 mg/dL Low 2.7-4.8 [facility] Comment on above: Order Comment: Speci men Type: BLOOD SPECIMEN Performed By: #### 2 4321-2, 2777-1, 13329-5 ####[facility]ORATORYCLIA [id number] [address] OF [facility] aPTT PPPon 06-08-2021 aPTT Coag (PPP) [Time] 24.2 s Normal 23.0-32.4 [facility] Comment on above: Order Comment: Speci men Type: BLOOD SPECIMEN Performed By: #### 3 4528-0, 26262-4 ####[facility]ATORYCLIA [id number] [address] ALLIED HEALTHon 06-07-2021 ALLIED HEALTH Normal [facility] ALLIED HEALTH Normal [facility] ALLIED HEALTH Normal [facility] Bacteria CSF Culton 06-07-19 22 Bacteria identified Cx Nom (CSF) CULTURE, CSF: No growth 14 days GRAM STAIN: No organisms seen Rare Mononuclear cells Rare Polymorphonuclear leukocytes Gram stain performed on cytospun specimen. Normal [facility] Comment on above: Performed By: #### 6 06-4 ####[facility]ATORYCLIA [id number] [address] [place] Basic metabolic 2000 panelon 06-07-2021 Anion gap [Moles/Vol] 9 mmol/L Normal 9-18 [facility] Comment on above: Order Comment: Speci men Type: BLOOD SPECIMEN Performed By: #### 1 9123-9, 2777-1, 03429-9 ####[facility]ATORYCLIA [id number] [address] STATES [facility] Calcium [Mass/Vol] 8.8 mg/dL Normal 8.5-10.2 [facility] Comment on above: Order Comment: Speci men Type: BLOOD SPECIMEN Performed By: #### 1 9123-9, 2777-1, 49901-7 ####[facility]ATORYCLIA [id number] [address] STATES [facility] Chloride [Moles/Vol] 111 mmol/L High 97-105 [facility] Comment on above: Order Comment: Speci men Type: BLOOD SPECIMEN Performed By: #### 1 9123-9, 7, 98883-1 ####[facility]ATORYCLIA [id number] [address] [facility] CO2 [Moles/Vol] 27 mmol/L Normal 22-30 [facility] Comment on above: Order Comment: Speci men Type: BLOOD SPECIMEN Performed By: #### 1 9123-9, 2776-05, ####[facility]ATORYCLIA [id number] [address] Creatinine [Mass/Vol] 0.66 mg/dL Low 0.73-1.22 [facility] Comment on above: Order Comment: Speci men Type: BLOOD SPECIMEN Performed By: #### 1 9123-9, 2776-05, ####[facility]ATORYCLIA [id number] [address] [place] GFR/1.73 sq M.predicted MDRD (S/P/Bld) [Vol rate/Area] mL/min/{1.73_m2} Normal [facility] Comment on above: Order [...] GFR. Performed By: #### 1 9123-9, 2777-, 40984-3 ####[facility]ATORYCLIA [id number] [address] [place] Glucose [Mass/Vol] 123 mg/dL High 74-99 [facility] Comment on above: Order Comment: Speci men Type: BLOOD SPECIMEN Result Comment: The [place] [employer] (ADA) provides guidance for cutoff [...] Standards of Medical Care in Diabetes 2016, [place] [employer]. Diabetes Care. 2016.39(Suppl 1). Performed By: #### 1 9123-9, 2777-, 33408-3 ####[facility]ATORYCLIA [id number] [address] [place] Potassium [Moles/Vol] 3.6 mmol/L Low 3.7-5.1 [facility] Comment on above: Order Comment: Speci men Type: BLOOD SPECIMEN Performed By: #### 1 9123-9, 27711-04, 75151-0 ####[facility]ATORYCLIA [id number] [address] [place] Sodium [Moles/Vol] 147 mmol/L High 136-144 [facility] Comment on above: Order Comment: Speci men Type: BLOOD SPECIMEN Performed By: #### 1 9123-9, 2777, 79689-6 ####[facility]ATORYCLIA [id number] [place] [address] [place] Urea nitrogen [Mass/Vol] 30 mg/dL High 9-24 [facility] Comment on above: Order Comment: Speci men Type: BLOOD SPECIMEN Performed By: #### 1 9123-9, 2777, 44637-3 ####[facility]ATORYCLIA [id number] [address] CBC W Auto Differential pane l (Bld)on 06-07-2021 Basophils (Bld) [#/Vol] 10*3/uL Normal <0.11 [facility] Comment on above: Order Comment: Speci men Type: BLOOD SPECIMEN Performed By: #### 5 7021-8 ####[facility]ATORYCLIA [id number] [address] Basophils/100 WBC (Bld) 0.2 % Normal [facility] Comment on above: Order Comment: Speci men Type: BLOOD SPECIMEN Performed By: #### 5 7021-8 ####[facility]ATORYCLIA [id number] [address] Differential cell count method Nom (Bld) Auto Normal [facility] Comment on above: Order Comment: Speci men Type: BLOOD SPECIMEN Performed By: #### 5 7021-8 ####[facility]ATORYCLIA [id number] [address] Eosinophils (Bld) [#/Vol] 0.06 10*3/uL Normal <0.46 [facility] Comment on above: Order Comment: Speci men Type: BLOOD SPECIMEN Performed By: #### 5 7021-8 ####[facility]ORATORYCLIA [id number] [address] Eosinophils/100 WBC (Bld) 0.6 % Normal [facility] Comment on above: Order Comment: Speci men Type: BLOOD SPECIMEN Performed By: #### 5 7021-8 ####[facility]ATORYCLIA [id number] [address] Erythrocyte distribution width (RBC) [Ratio] 15.8 % High 11.5-15.0 [facility] Comment on above: Order Comment: Speci men Type: BLOOD SPECIMEN Performed By: #### 5 7021-8 ####[facility]ORATORYCLIA [id number] [place] [address] [place] Hematocrit (Bld) [Volume fraction] 40.4 % Normal 39.0-51.0 [facility] Comment on above: Order Comment: Speci men Type: BLOOD SPECIMEN Performed By: #### 5 7021-8 ####[facility] LABORATORYCLIA [id number] [address] Hemoglobin (Bld) [Mass/Vol] 12.4 g/dL Low 13.0-17.0 [facility] Comment on above: Order Comment: Speci men Type: BLOOD SPECIMEN Performed By: #### 5 7021-8 ####[facility] LABORATORYCLIA [id number] [address] IMMATURE GRAN % 0.7 % Normal [facility] Comment on above: Order Comment: Speci men Type: BLOOD SPECIMEN Performed By: #### 5 7021-8 ####[facility] LABORATORYCLIA [id number] [address] IMMATURE GRAN ABS 0.07 k/uL Normal <0.10 [facility] Comment on above: Order Comment: Speci men Type: BLOOD SPECIMEN Performed By: #### 5 7021-8 ####[facility]ATORYCLIA [id number] [address] Lymphocytes (Bld) [#/Vol] 1.43 10*3/uL Normal 1.00-4.00 [facility] Comment on above: Order Comment: Speci men Type: BLOOD SPECIMEN Performed By: #### 5 7021-8 ####[facility]ATORYCLIA [id number] [address] Lymphocytes/100 WBC (Bld) 14.1 % Normal [facility] Comment on above: Order Comment: Speci men Type: BLOOD SPECIMEN Performed By: #### 5 7021-8 ####[facility]ORATORYCLIA [id number] [address] OF [facility] MCH (RBC) [Entitic mass] 27.6 pg Normal 26.0-34.0 [facility] Comment on above: Order Comment: Speci men Type: BLOOD SPECIMEN Performed By: #### 5 7021-8 ####[facility]ATORYCLIA [id number] [address] MCHC (RBC) [Mass/Vol] 30.7 g/dL Normal 30.5-36.0 [facility] Comment on above: Order Comment: Speci men Type: BLOOD SPECIMEN Performed By: #### 5 7021-8 ####[facility]ORATORYCLIA [id number] [address] MCV (RBC) [Entitic vol] 89.8 fL Normal 80.0-100.0 [facility] Comment on above: Order Comment: Speci men Type: BLOOD SPECIMEN Performed By: #### 5 7021-8 ####[facility]ATORYCLIA [id number] [address] Monocytes (Bld) [#/Vol] 0.82 10*3/uL Normal <0.87 [facility] Comment on above: Order Comment: Speci men Type: BLOOD SPECIMEN Performed By: #### 5 7021-8 ####[facility]ATORYCLIA [id number] [address] Monocytes/100 WBC (Bld) 8.1 % Normal [facility] Comment on above: Order Comment: Speci men Type: BLOOD SPECIMEN Performed By: #### 5 7021-8 ####[facility]ORATORYCLIA [id number] [address] Neutrophils (Bld) [#/Vol] 7.74 10*3/uL High 1.45-7.50 [facility] Comment on above: Order Comment: Speci men Type: BLOOD SPECIMEN Performed By: #### 5 7021-8 ####[facility]ATORYCLIA [id number] [address] Neutrophils/100 WBC (Bld) 76.3 % Normal [facility] Comment on above: Order Comment: Speci men Type: BLOOD SPECIMEN Performed By: #### 5 7021-8 ####[facility]ORATORYCLIA [id number] [address] Nucleated RBC (Bld) [#/Vol] 10*3/uL Normal <0.01 [facility] Comment on above: Order Comment: Speci men Type: BLOOD SPECIMEN Performed By: #### 5 7021-8 ####[facility] LABORATORYCLIA [id number] [address] Nucleated RBC/100 WBC (Bld) [Ratio] 0.0 /100 WBC Normal 0.0 [facility] Comment on above: Order Comment: Speci men Type: BLOOD SPECIMEN Performed By: #### 5 7021-8 ####[facility] LABORATORYCLIA [id number] [address] Platelet mean volume (Bld) [Entitic vol] 10.4 fL Normal 9.0-12.7 [facility] Comment on above: Order Comment: Speci men Type: BLOOD SPECIMEN Performed By: #### 5 7021-8 ####[facility] LABORATORYCLIA [id number] [address] [facility] Platelets (Bld) [#/Vol] 236 10*3/uL Normal 150-400 [facility] Comment on above: Order Comment: Speci men Type: BLOOD SPECIMEN Performed By: #### 5 7021-8 ####[facility] LABORATORYCLIA [id number] [address] [facility] RBC (Bld) [#/Vol] 4.50 10*6/uL Normal 4.20-6.00 [facility] Comment on above: Order Comment: Speci men Type: BLOOD SPECIMEN Performed By: #### 5 7021-8 ####[facility] LABORATORYCLIA [id number] [address] WBC (Bld) [#/Vol] 10.14 10*3/uL Normal 3.70-11.00 [facility] Comment on above: Order Comment: Speci men Type: BLOOD SPECIMEN Performed By: #### 5 7021-8 ####[facility] LABORATORYCLIA [id number] [address] CBC panel Auto (Bld)on 06-07 Erythrocyte distribution width (RBC) [Ratio] 15.8 % High 11.5-15.0 [facility] Comment on above: Order Comment: Speci men Type: BLOOD SPECIMEN Performed By: #### 5 8410-2 ####[facility] LABORATORYCLIA [id number] [address] Hematocrit (Bld) [Volume fraction] 40.0 % Normal 39.0-51.0 [facility] Comment on above: Order Comment: Speci men Type: BLOOD SPECIMEN Performed By: #### 5 8410-2 ####[facility] LABORATORYCLIA [id number] [address] Hemoglobin (Bld) [Mass/Vol] 12.3 g/dL Low 13.0-17.0 [facility] Comment on above: Order Comment: Speci men Type: BLOOD SPECIMEN Performed By: #### 5 8410-2 ####[facility] LABORATORYCLIA [id number] [address] MCH (RBC) [Entitic mass] 27.3 pg Normal 26.0-34.0 [facility] Comment on above: Order Comment: Speci men Type: BLOOD SPECIMEN Performed By: #### 5 8410-2 ####[facility] LABORATORYCLIA [id number] [address] MCHC (RBC) [Mass/Vol] 30.8 g/dL Normal 30.5-36.0 [facility] Comment on above: Order Comment: Speci men Type: BLOOD SPECIMEN Performed By: #### 5 8410-2 ####[facility] LABORATORYCLIA [id number] [address] MCV (RBC) [Entitic vol] 88.7 fL Normal 80.0-100.0 [facility] Comment on above: Order Comment: Speci men Type: BLOOD SPECIMEN Performed By: #### 5 8410-2 ####[facility] LABORATORYCLIA [id number] [address] Nucleated RBC (Bld) [#/Vol] 10*3/uL Normal <0.01 [facility] Comment on above: Order Comment: Speci men Type: BLOOD SPECIMEN Performed By: #### 5 8410-2 ####[facility] LABORATORYCLIA [id number] [address] Platelet mean volume (Bld) [Entitic vol] 10.0 fL Normal 9.0-12.7 [facility] Comment on above: Order Comment: Speci men Type: BLOOD SPECIMEN Performed By: #### 5 8410-2 ####[facility] LABORATORYCLIA [id number] [address] Platelets (Bld) [#/Vol] 234 10*3/uL Normal 150-400 [facility] Comment on above: Order Comment: Speci men Type: BLOOD SPECIMEN Performed By: #### 5 8410-2 ####[facility] LABORATORYCLIA [id number] [address] [facility] RBC (Bld) [#/Vol] 4.51 10*6/uL Normal 4.20-6.00 [facility] Comment on above: Order Comment: Speci men Type: BLOOD SPECIMEN Performed By: #### 5 8410-2 ####[facility] LABORATORYCLIA [id number] [address] [facility] WBC (Bld) [#/Vol] 11.47 10*3/uL High 3.70-11.00 [facility] Comment on above: Order Comment: Speci men Type: BLOOD SPECIMEN Performed By: #### 5 8410-2 ####[facility] LABORATORYCLIA [id number] [address] [facility] CONSULT PROGon 06-07-2021 CONSULT PROG Normal [facility] CONSULT PROG Normal [facility] CSF MANUAL DIFFon 06-07-2021 DIF TTL, CSF 92 cells counted Normal [facility] Comment on above: Order Comment: Speci men Type: CEREBROSPINAL FLUID Performed By: #### 3 4563-7, [id number], [id number] ####[facility]ORATORYCLIA [id number] [place], [place] [address] [place] [address] EOSIN%, CSF 1 % Normal [facility] Comment on above: Order Comment: Speci men Type: CEREBROSPINAL FLUID Performed By: #### 3 4563-7, [id number], [id number] ####[facility]ORATORYCLIA [id number] [address] [facility] LYMPH%, CSF 21 % Low 50-90 [facility] Comment on above: Order Comment: Speci men Type: CEREBROSPINAL FLUID Performed By: #### 3 4563-7, [id number], [id number] ####[facility]ORATORYCLIA [id number] [address] [place] MACRO%, CSF 27 % High <1 [facility] Comment on above: Order Comment: Speci men Type: CEREBROSPINAL FLUID Result Comment: Tati ected result: Previously reported as 22 % on 06/07/2021 at 1:49 PM EST. Performed By: #### 3 4563-7, [id number], [id number] ####[facility]ORATORYCLIA [id number] [address] [place] MONO%, CSF 36 % Normal 10-50 [facility] Comment on above: Order Comment: Speci men Type: CEREBROSPINAL FLUID Performed By: #### 3 4563-7, [id number], [id number] ####[facility]ATORYCLIA [id number] [address] [place] NEUT%, CSF 11 % High 0-3 [facility] Comment on above: Order Comment: Speci men Type: CEREBROSPINAL FLUID Performed By: #### 3 4563-7, [id number], [id number] ####[facility]ATORYCLIA [id number] [address] OTHER CL%, CSF 4 % Normal [facility] Comment on above: Order Comment: Speci men Type: CEREBROSPINAL FLUID Result Comment: Path review to follow.Corrected result: Previously reported as 10 % on 06/07/2021 at 1:49 PM EST. Performed By: #### 3 4563-7, [id number], [id number] ####[facility] LABORATORYCLIA [id number] [address] CSF PATHOLOGIST INTERP (LAB REFLEX ORDER-NO BILL)on 06-07-2021 CSF STAFF REVIEW Negative for maligna nt cells. Rare immature myeloid or ventricular lining cells. Normal [facility] Comment on above: Order Comment: Speci men Type: CEREBROSPINAL FLUID Performed By: #### 3 4563-7, [id number], [id number] ####[facility] LABORATORYCLIA [id number] [address] Pathologist name Reviewed by Eloise rebolledo MD [facility] Comment on above: Order Comment: Speci men Type: CEREBROSPINAL FLUID Performed By: #### 3 4563-7, [id number], [id number] ####[facility] LABORATORYCLIA [id number] [address] BRAIN WO IVCONon 06-07-19 CT BRAIN WO IVCON Normal [facility] CT BRAIN WO IVCON Normal [facility] Cell count panel (CSF)on Clarity (CSF) Clear Normal Clear [facility] Comment on above: Order Comment: Speci men Type: CEREBROSPINAL FLUID Performed By: #### 3 4563-7, [id number], [id number] ####[facility] LABORATORYCLIA [id number] [address] Clarity (Unsp spec) Not Indicated Normal Clear [facility] Comment on above: Order Comment: Speci men Type: CEREBROSPINAL FLUID Performed By: #### 3 4563-7, [id number], [id number] ####[facility]ATORYCLIA [id number] [address] Color (CSF) Colorless Normal Colorless [facility] Comment on above: Order Comment: Speci men Type: CEREBROSPINAL FLUID Performed By: #### 3 4563-7, [id number], [id number] ####[facility] LABORATORYCLIA [id number] [address] Color (Spun CSF) Not Indicated Normal Colorless [facility] Comment on above: Order Comment: Speci men Type: CEREBROSPINAL FLUID Performed By: #### 3 4563-7, [id number], [id number] ####[facility] LABORATORYCLIA [id number] [address] CSF TUBE NUMBER [employer] Normal [facility] Comment on above: Order Comment: Speci men Type: CEREBROSPINAL FLUID Performed By: #### 3 4563-7, [id number], [id number] ####[facility] LABORATORYCLIA [id number] [address] RBC Manual cnt (CSF) [#/Vol] 42 cells/uL High 0-5 [facility] Comment on above: Order Comment: Speci men Type: CEREBROSPINAL FLUID Performed By: #### 3 4563-7, [id number], [id number] ####[facility] LABORATORYCLIA [id number] [address] WBC Manual cnt (CSF) [#/Vol] 1 cells/uL Normal 0-5 [facility] Comment on above: Order Comment: Speci men Type: CEREBROSPINAL FLUID Performed By: #### 3 4563-7, [id number], [id number] ####[facility] LABORATORYCLIA [id number] [address] [place] Glucose CSF-ncon 2 Glucose (CSF) [Mass/Vol] 92 mg/dL High 40-70 [facility] Comment on above: Order Comment: Speci men Type: CEREBROSPINAL FLUID Result Comment: Lumb ar CSF glucose values of healthy patients are approximately 60% of the plasma values and must always be compared with a concurrently measured plasma value for adequate clinical interpretation.References: 1. Glucose HK (GLUC3) [package insert V 12.0 [place]]. [employer], [place], [place]. September 2015. 2. Michelle Moore, Loki, H. (2015). Chapter 7: Glucose and Lactate. Marianela Alcocer al.(eds.), Cerebrospinal Fluid in Clinical Neurology. [place]ckley: goodideazs. Performed By: #### 2 880-3, 2342-4 ####[facility] LABORATORYCLIA [id number] [address] [facility] Lactate (Bld) [Moles/Vol]on 06-07-2021 Lactate [Moles/Vol] 0.9 mmol/L Normal 0.5-2.2 [facility] Comment on above: Order Comment: Speci men Type: BLOOD SPECIMEN Performed By: #### 3 2693-4 ####[facility] LABORATORYCLIA [id number] [address] [facility] Lipase SerPl-cCncon 06-07-19 22 Lipase [Catalytic activity/Vol] 35 U/L Normal 16-61 [facility] Comment on above: Order Comment: Speci men Type: BLOOD SPECIMEN Performed By: #### 3 040-3, PROCAL ####[facility] LABORATORYCLIA [id number] [address] [facility] Magnesium SerPl-mCncon 06-07 Magnesium [Mass/Vol] 2.7 mg/dL High 1.7-2.3 [facility] Comment on above: Order Comment: Speci men Type: BLOOD SPECIMEN Performed By: #### 1 9123-9, 2777-1, 41217-8 ####[facility] LABORATORYCLIA [id number] [address] PROCALCITONIN (LAB)on 2021 Procalcitonin [Mass/Vol] 0.13 ng/mL High <0.09 [facility] Comment on above: Order Comment: Speci men Type: BLOOD SPECIMEN Result Comment: For a guided interpretation of test results, please visit the Change in Procalcitonin Calculator, [email or web address]. Performed By: #### 3 040-3, PROCAL ####[facility] LABORATORYCLIA [id number] [address] [facility] Phosphate SerPl-mCncon 06-07 Phosphate [Mass/Vol] 1.9 mg/dL Low 2.7-4.8 [facility] Comment on above: Order Comment: Speci men Type: BLOOD SPECIMEN Performed By: #### 1 9123-9, 2777-1, 17632-8 ####[facility] LABORATORYCLIA [id number] [address] Prot CSF-mCncon 06-07-2021 Protein (CSF) [Mass/Vol] 33 mg/dL Normal 15-45 [facility] Comment on above: Order Comment: Speci men Type: CEREBROSPINAL FLUID Performed By: #### 2 880-3, 2342-4 ####[facility] LABORATORYCLIA [id number] [address] SARS-CoV-2 RNA Resp Ql MEGAN+p robeon 06-07-2021 SARS-CoV-2 (COVID-19) RNA MEGAN+probe Ql (Resp) COVID 19 RESULT: SARS-CoV-2 (Agent of COVID-19) Not Detected by PCR. This test has been authorized by FDA under an Emergency Use Authorization (EUA). Normal [facility] Comment on above: Performed By: #### 9 4500-6 ####[facility] LABORATORYCLIA [id number] [address] TYPE AND SCREENon 06-07-2021 ABO O Normal [facility] Comment on above: Order Comment: Speci men Type: BLOOD SPECIMEN Performed By: #### T SCR ####[facility] BLOOD BANKCLIA [id number] [address] HISTORICAL AB SCR STATUS Negative Normal [facility] Comment on above: Order Comment: Speci men Type: BLOOD SPECIMEN Performed By: #### T SCR ####[facility] BLOOD BANKCLIA [id number] [place], [place] [address] [place] [address] Rh Nom (Bld) Positive Normal [facility] Comment on above: Order Comment: Speci men Type: BLOOD SPECIMEN Performed By: #### T SCR ####[facility] BLOOD BANKCLIA [id number] [place] [id number] [facility] TYPE AND SCREEN EXPIRATION 06/10/2021 23:59 Normal [facility] Comment on above: Order Comment: Speci men Type: BLOOD SPECIMEN Performed By: #### T SCR ####[facility] BLOOD BANKCLIA [id number] [address] Vancomycin random [Mass/Vol] on 06-07-2021 Vancomycin [Mass/Vol] 16.5 ug/mL Normal 10.0-20.0 [facility] Comment on above: Order Comment: Speci men Type: BLOOD SPECIMEN Result Comment: Refe rence ranges and high/low indicator flags are provided as general guidelines only. The treating physician must determine appropriate target levels/dosing based on the specific clinical situation. Performed By: #### 4 091-5 ####[facility] LABORATORYCLIA [id number] [address] XR CHEST 1V FRONTAL PORTon 0 06-07-2021 XR CHEST 1V FRONTAL PORT Normal [facility] Basic metabolic 2000 panelon 06-06-2021 Anion gap [Moles/Vol] 11 mmol/L Normal 9-18 [facility] Comment on above: Order Comment: Speci men Type: BLOOD SPECIMEN Performed By: #### 2 4321-2, , 2776-05 ####[facility] LABORATORYCLIA [id number] [address] Calcium [Mass/Vol] 8.6 mg/dL Normal 8.5-10.2 [facility] Comment on above: Order Comment: Speci men Type: BLOOD SPECIMEN Performed By: #### 2 4321-2, , 2776-05 ####[facility] LABORATORYCLIA [id number] [address] [place] Chloride [Moles/Vol] 108 mmol/L High 97-105 [facility] Comment on above: Order Comment: Speci men Type: BLOOD SPECIMEN Performed By: #### 2 4321-2, , 2776-05 ####[facility] LABORATORYCLIA [id number] [address] STATES [facility] CO2 [Moles/Vol] 25 mmol/L Normal 22-30 [facility] Comment on above: Order Comment: Speci men Type: BLOOD SPECIMEN Performed By: #### 2 4321-2, , 2776-05 ####[facility] LABORATORYCLIA [id number] [address] Creatinine [Mass/Vol] 0.76 mg/dL Normal 0.73-1.22 [facility] Comment on above: Order Comment: Speci men Type: BLOOD SPECIMEN Performed By: #### 2 1-2, , 2776-05 ####[facility] LABORATORYCLIA [id number] [address] [place] GFR/1.73 sq M.predicted MDRD (S/P/Bld) [Vol rate/Area] mL/min/{1.73_m2} Normal [facility] Comment on above: Order [...] Performed By: #### 2 4321-2, , 2776-05 ####[facility] LABORATORYCLIA [id number] [place] [address] [place] Glucose [Mass/Vol] 116 mg/dL High 74-99 [facility] Comment on above: Order Comment: Speci men Type: BLOOD SPECIMEN Result Comment: The [place] Diabetes Association (ADA) provides guidance for cutoff [...] Standards of Medical Care in Diabetes 2016, [place] [employer] Association. Diabetes Care. 2016.39(Suppl 1). Performed By: #### 2 1-2, , 2776-05 ####[facility] LABORATORYCLIA [id number] [place] [address] [place] Potassium [Moles/Vol] 3.5 mmol/L Low 3.7-5.1 [facility] Comment on above: Order Comment: Speci men Type: BLOOD SPECIMEN Performed By: #### 2 1-2, , 2776-05 ####[facility] LABORATORYCLIA [id number] [address] [place] Sodium [Moles/Vol] 144 mmol/L Normal 136-144 [facility] Comment on above: Order Comment: Speci men Type: BLOOD SPECIMEN Performed By: #### 2 1-2, , 2776-05 ####[facility] LABORATORYCLIA [id number] [place] [address] [place] Urea nitrogen [Mass/Vol] 31 mg/dL High 9-24 [facility] Comment on above: Order Comment: Speci men Type: BLOOD SPECIMEN Performed By: #### 2 1-2, , 2776-05 ####[facility] LABORATORYCLIA [id number] [address] CASE MANAGEMon 06-06-2021 CASE MANAGEM Normal [facility] CBC panel Auto (Bld)on 06-06 Erythrocyte distribution width (RBC) [Ratio] 15.8 % High 11.5-15.0 [facility] Comment on above: Order Comment: Speci men Type: BLOOD SPECIMEN Performed By: #### 5 8410-2 ####[facility] LABORATORYCLIA [id number] [address] Hematocrit (Bld) [Volume fraction] 39.5 % Normal 39.0-51.0 [facility] Comment on above: Order Comment: Speci men Type: BLOOD SPECIMEN Performed By: #### 5 8410-2 ####[facility] LABORATORYCLIA [id number] [address] Hemoglobin (Bld) [Mass/Vol] 12.2 g/dL Low 13.0-17.0 [facility] Comment on above: Order Comment: Speci men Type: BLOOD SPECIMEN Performed By: #### 5 8410-2 ####[facility] LABORATORYCLIA [id number] [address] MCH (RBC) [Entitic mass] 27.8 pg Normal 26.0-34.0 [facility] Comment on above: Order Comment: Speci men Type: BLOOD SPECIMEN Performed By: #### 5 8410-2 ####[facility] LABORATORYCLIA [id number] [address] MCHC (RBC) [Mass/Vol] 30.9 g/dL Normal 30.5-36.0 [facility] Comment on above: Order Comment: Speci men Type: BLOOD SPECIMEN Performed By: #### 5 8410-2 ####[facility] LABORATORYCLIA [id number] [address] MCV (RBC) [Entitic vol] 90.0 fL Normal 80.0-100.0 [facility] Comment on above: Order Comment: Speci men Type: BLOOD SPECIMEN Performed By: #### 5 8410-2 ####[facility] LABORATORYCLIA [id number] [address] Nucleated RBC (Bld) [#/Vol] 10*3/uL Normal <0.01 [facility] Comment on above: Order Comment: Speci men Type: BLOOD SPECIMEN Performed By: #### 5 8410-2 ####[facility] LABORATORYCLIA [id number] [address] Platelet mean volume (Bld) [Entitic vol] 10.4 fL Normal 9.0-12.7 [facility] Comment on above: Order Comment: Speci men Type: BLOOD SPECIMEN Performed By: #### 5 8410-2 ####[facility] LABORATORYCLIA [id number] [address] Platelets (Bld) [#/Vol] 236 10*3/uL Normal 150-400 [facility] Comment on above: Order Comment: Speci men Type: BLOOD SPECIMEN Performed By: #### 5 8410-2 ####[facility] LABORATORYCLIA [id number] [address] RBC (Bld) [#/Vol] 4.39 10*6/uL Normal 4.20-6.00 [facility] Comment on above: Order Comment: Speci men Type: BLOOD SPECIMEN Performed By: #### 5 8410-2 ####[facility] LABORATORYCLIA [id number] [address] WBC (Bld) [#/Vol] 9.74 10*3/uL Normal 3.70-11.00 [facility] Comment on above: Order Comment: Speci men Type: BLOOD SPECIMEN Performed By: #### 5 8410-2 ####[facility] LABORATORYCLIA [id number] [address] CONSULT PROGon 06-06-2021 CONSULT PROG Normal [facility] CONSULT PROG Normal [facility] Magnesium SerPl-mCncon 06-06 Magnesium [Mass/Vol] 2.5 mg/dL High 1.7-2.3 [facility] Comment on above: Order Comment: Speci men Type: BLOOD SPECIMEN Performed By: #### 2 4321-2, 67393-2, 2777-1 ####[facility] LABORATORYCLIA [id number] [place] [address] [place] [facility] PT panel Coag (PPP)on 2021 INR Coag (PPP) [Relative time] 1.0 {INR} Normal 0.9-1.3 [facility] Comment on above: Order Comment: Speci men Type: BLOOD SPECIMEN Result Comment: Yris min K Antagonist (VKA) Therapeutic Range: INR 2 to 3 (Target INR of 2.5)Note: For patients treated with VKA drugs, such as warfarin, the [place] [employer] 2012 Guideline recommends [...] al. Chest 2012, 141:7S-47SNishimpatricia RA, et al. [facility] 2017, 70: 252-289 Performed By: #### 3 4528-0, 17967-1 ####[facility] LABORATORYCLIA [id number] [place] [address] [place] PT Coag (PPP) [Time] 11.4 s Normal 9.7-13.0 [facility] Comment on above: Order Comment: Speci men Type: BLOOD SPECIMEN Performed By: #### 3 4528-0, 20768-6 ####[facility] LABORATORYCLIA [id number] [address] Phosphate SerPl-mCncon 06-06 Phosphate [Mass/Vol] 2.3 mg/dL Low 2.7-4.8 [facility] Comment on above: Order Comment: Speci men Type: BLOOD SPECIMEN Performed By: #### 2 4321-2, 15583-5, 2777-1 ####[facility] LABORATORYCLIA [id number] [address] THROMBOGRAPH HEPARINASE PANE Kiel 06-06-2021 Clot angle after addition of heparinase TEG (Bld) [Angle] 70.2 degrees Normal 47.0-74.0 [facility] Comment on above: Order Comment: Speci men Type: BLOOD SPECIMEN Performed By: #### T EGHPP ####[facility] LABORATORYCLIA [id number] [address] Clot Lysis 30 Min post maximum clot amplitude TEG (Bld) [Length fraction] 0.0 % Normal 0.0-8.0 [facility] Comment on above: Order Comment: Speci men Type: BLOOD SPECIMEN Performed By: #### T EGHPP ####[facility] LABORATORYCLIA [id number] [address] Clotting time after addition of heparinase TEG (Bld) 5.7 minutes Normal 4.0-10.0 [facility] Comment on above: Order Comment: Speci men Type: BLOOD SPECIMEN Performed By: #### T EGHPP ####[facility] LABORATORYCLIA [id number] [address] Coagulation index TEG Qn (Bld) 1.2 Normal -4.6-3.2 [facility] Comment on above: Order Comment: Speci men Type: BLOOD SPECIMEN Result Comment: The Coagulation Index, a secondary parameter, is labeled by the oracle specialist as for "research use only" and is used per the oracle specialist's instructions. Its performance characteristics were determined by [facility]'s Isrrael [facility] Pathology and Laboratory Medicine [place] in a manner consistent with CLIA requirements. This test has not been cleared by the U.S. Food and Drug Administration. Performed By: #### T EGHPP ####[facility] LABORATORYCLIA [id number] [address] Maximum clot firmness after addition of heparinase TEG (Bld) [Length] 64.0 mm Normal 51.0-75.0 [facility] Comment on above: Order Comment: Speci men Type: BLOOD SPECIMEN Performed By: #### T EGHPP ####[facility] LABORATORYCLIA [id number] [address] Vancomycin random [Mass/Vol] on 06-06-2021 Vancomycin [Mass/Vol] 17.4 ug/mL Normal 10.0-20.0 [facility] Comment on above: Order Comment: Speci men Type: BLOOD SPECIMEN Result Comment: Refe rence ranges and high/low indicator flags are provided as general guidelines only. The treating physician must determine appropriate target levels/dosing based on the specific clinical situation. Performed By: #### 4 091-5 ####[facility]ORATORYCLIA [id number] [address] Vancomycin [Mass/Vol] 13.5 ug/mL Normal 10.0-20.0 [facility] Comment on above: Order Comment: Speci men Type: BLOOD SPECIMEN Result Comment: Refe rence ranges and high/low indicator flags are provided as general guidelines only. The treating physician must determine appropriate target levels/dosing based on the specific clinical situation. Performed By: #### 4 091-5 ####[facility]ATORYCLIA [id number] [address] aPTT PPPon 06-06-2021 aPTT Coag (PPP) [Time] 27.8 s Normal 23.0-32.4 [facility] Comment on above: Order Comment: Speci men Type: BLOOD SPECIMEN Performed By: #### 3 4528-0, 23789-5 ####[facility]ATORYCLIA [id number] [address] Basic metabolic 2000 panelon 06-05-2021 Anion gap [Moles/Vol] 11 mmol/L Normal 9-18 [facility] Comment on above: Order Comment: Speci men Type: BLOOD SPECIMEN Performed By: #### 1 9123-9, 09426-4, 2776- ####[facility]ORYCLIA [id number] [address] STATES OF [facility] Calcium [Mass/Vol] 8.6 mg/dL Normal 8.5-10.2 [facility] Comment on above: Order Comment: Speci men Type: BLOOD SPECIMEN Performed By: #### 1 9123-9, 50065-4, 2776- ####[facility]ATORYCLIA [id number] [address] STATES [place] [facility] Chloride [Moles/Vol] 108 mmol/L High 97-105 [facility] Comment on above: Order Comment: Speci men Type: BLOOD SPECIMEN Performed By: #### 1 9123-9, 94839-0, 2776-05 ####[facility]ATORYCLIA [id number] [address] [place] [facility] CO2 [Moles/Vol] 25 mmol/L Normal 22-30 [facility] Comment on above: Order Comment: Speci men Type: BLOOD SPECIMEN Performed By: #### 1 9123-9, 37235-1, 2776-05 ####[facility]ATORYCLIA [id number] [address] [place] Creatinine [Mass/Vol] 0.77 mg/dL Normal 0.73-1.22 [facility] Comment on above: Order Comment: Speci men Type: BLOOD SPECIMEN Performed By: #### 1 9123-9, 04304-9, 2776- ####[facility]ORYCLIA [id number] [place] [address] [place] GFR/1.73 sq M.predicted MDRD (S/P/Bld) [Vol rate/Area] mL/min/{1.73_m2} Normal [facility] Comment on above: Order [...] actual GFR. Performed By: #### 1 9123-9, 62357-8, 2776- ####[facility]ORATORYCLIA [id number] [place] [address] [place] Glucose [Mass/Vol] 96 mg/dL Normal 74-99 [facility] Comment on above: Order Comment: Speci men Type: BLOOD SPECIMEN Result Comment: The [place] [employer] (ADA) provides guidance for cutoff [...] Standards of Medical Care in Diabetes 2016, [place] [employer]. Diabetes Care. 2016.39(Suppl 1). Performed By: #### 1 9123-9, 38587-0, 2776-05 ####[facility]ATORYCLIA [id number] [place] [address] [place] Potassium [Moles/Vol] 3.9 mmol/L Normal 3.7-5.1 [facility] Comment on above: Order Comment: Speci men Type: BLOOD SPECIMEN Performed By: #### 1 9123-9, 25046-5, 2776- ####[facility]ORATORYCLIA [id number] [address] Sodium [Moles/Vol] 144 mmol/L Normal 136-144 [facility] Comment on above: Order Comment: Speci men Type: BLOOD SPECIMEN Performed By: #### 1 9123-9, 74677-0, 2777-1 ####[facility]ATORYCLIA [id number] [address] Urea nitrogen [Mass/Vol] 26 mg/dL High 9-24 [facility] Comment on above: Order Comment: Speci men Type: BLOOD SPECIMEN Performed By: #### 1 9123-9, 60503-2, 2776- ####[facility]ATORYCLIA [id number] [address] CBC panel Auto (Bld)on 06-05 Erythrocyte distribution width (RBC) [Ratio] 15.9 % High 11.5-15.0 [facility] Comment on above: Order Comment: Speci men Type: BLOOD SPECIMEN Performed By: #### 5 8410-2 ####[facility]ATORYCLIA [id number] [address] Hematocrit (Bld) [Volume fraction] 39.6 % Normal 39.0-51.0 [facility] Comment on above: Order Comment: Speci men Type: BLOOD SPECIMEN Performed By: #### 5 8410-2 ####[facility]ATORYCLIA [id number] [address] Hemoglobin (Bld) [Mass/Vol] 12.3 g/dL Low 13.0-17.0 [facility] Comment on above: Order Comment: Speci men Type: BLOOD SPECIMEN Performed By: #### 5 8410-2 ####[facility]ATORYCLIA [id number] [address] MCH (RBC) [Entitic mass] 28.1 pg Normal 26.0-34.0 [facility] Comment on above: Order Comment: Speci men Type: BLOOD SPECIMEN Performed By: #### 5 8410-2 ####[facility]ATORYCLIA [id number] [address] MCHC (RBC) [Mass/Vol] 31.1 g/dL Normal 30.5-36.0 [facility] Comment on above: Order Comment: Speci men Type: BLOOD SPECIMEN Performed By: #### 5 8410-2 ####[facility]ATORYCLIA [id number] [address] MCV (RBC) [Entitic vol] 90.4 fL Normal 80.0-100.0 [facility] Comment on above: Order Comment: Speci men Type: BLOOD SPECIMEN Performed By: #### 5 8410-2 ####[facility]ATORYCLIA [id number] [address] Nucleated RBC (Bld) [#/Vol] 10*3/uL Normal <0.01 [facility] Comment on above: Order Comment: Speci men Type: BLOOD SPECIMEN Performed By: #### 5 8410-2 ####[facility]ATORYCLIA [id number] [address] Platelet mean volume (Bld) [Entitic vol] 10.5 fL Normal 9.0-12.7 [facility] Comment on above: Order Comment: Speci men Type: BLOOD SPECIMEN Performed By: #### 5 8410-2 ####[facility]ATORYCLIA [id number] [address] Platelets (Bld) [#/Vol] 224 10*3/uL Normal 150-400 [facility] Comment on above: Order Comment: Speci men Type: BLOOD SPECIMEN Performed By: #### 5 8410-2 ####[facility]ATORYCLIA [id number] [address] RBC (Bld) [#/Vol] 4.38 10*6/uL Normal 4.20-6.00 [facility] Comment on above: Order Comment: Speci men Type: BLOOD SPECIMEN Performed By: #### 5 8410-2 ####[facility]ATORYCLIA [id number] [address] OF [facility] WBC (Bld) [#/Vol] 9.66 10*3/uL Normal 3.70-11.00 [facility] Comment on above: Order Comment: Speci men Type: BLOOD SPECIMEN Performed By: #### 5 8410-2 ####[facility]ATORYCLIA [id number] [address] CONSULT PROGon 06-05-2021 CONSULT PROG Normal [facility] Gas and Carbon monoxide pane l (BldV)on 06-05-2021 Base excess Calc (BldV) [Moles/Vol] 1.8 mmol/L Normal 0-2 [facility] Comment on above: Order Comment: Speci men Type: VENOUS BLOOD SPECIMEN Performed By: #### 2 4344-4 ####[facility]ORATORYCLIA [id number] [address] Body temperature 100.4 [degF] Normal [facility] Comment on above: Order Comment: Speci men Type: VENOUS BLOOD SPECIMEN Performed By: #### 2 4344-4 ####[facility]ATORYCLIA [id number] [address] CALCIUM IONIZED, PH CORRECTED 1.21 mmol/L Normal 1.08-1.30 [facility] Comment on above: Order Comment: Speci men Type: VENOUS BLOOD SPECIMEN Performed By: #### 2 4344-4 ####[facility]ATORYCLIA [id number] [address] STATES [facility] Calcium.ionized (BldV) [Mass/Vol] 1.19 mmol/L Normal 1.08-1.30 [facility] Comment on above: Order Comment: Speci men Type: VENOUS BLOOD SPECIMEN Performed By: #### 2 4344-4 ####[facility]ATORYCLIA [id number] [address] [place] Carboxyhemoglobin (BldV) [Mass fraction] 1.0 % Normal 0.0-2.0 [facility] Comment on above: Order Comment: Speci men Type: VENOUS BLOOD SPECIMEN Result Comment: Carb oxyhemoglobin Reference Range for Smokers: 2.0-8.0% Performed By: #### 2 4344-4 ####[facility]ATORYCLIA [id number] [address] CO2 (BldV) [Partial pressure] 41 mm[Hg] Low 42-55 [facility] Comment on above: Order Comment: Speci men Type: VENOUS BLOOD SPECIMEN Performed By: #### 2 4344-4 ####[facility]ORYCLIA [id number] [address] CO2 [Moles/Vol] 23.4 mmol/L Low 25-29 [facility] Comment on above: Order Comment: Speci men Type: VENOUS BLOOD SPECIMEN Performed By: #### 2 4344-4 ####[facility]ORYCLIA [id number] [address] CO2 adjusted to patient's actual temperature (BldV) [Partial pressure] 43 mmHg Normal 42-55 [facility] Comment on above: Order Comment: Speci men Type: VENOUS BLOOD SPECIMEN Performed By: #### 2 4344-4 ####[facility]ORYCLIA [id number] [address] STATES [facility] Glucose [Mass/Vol] 101 mg/dL Normal 60-105 [facility] Comment on above: Order Comment: Speci men Type: VENOUS BLOOD SPECIMEN Performed By: #### 2 4344-4 ####[facility]ORYCLIA [id number] [address] [place] HCO3 (Bld) [Moles/Vol] 26.0 mmol/L Normal 24-28 [facility] Comment on above: Order Comment: Speci men Type: VENOUS BLOOD SPECIMEN Performed By: #### 2 4344-4 ####[facility]ORATORYCLIA [id number] [address] [place] Hematocrit (Bld) [Volume fraction] 38.4 % Low 39.0-51.0 [facility] Comment on above: Order Comment: Speci men Type: VENOUS BLOOD SPECIMEN Performed By: #### 2 4344-4 ####[facility]ORYCLIA [id number] [address] Hemoglobin (Bld) [Mass/Vol] 12.5 g/dL Low 13.0-17.0 [facility] Comment on above: Order Comment: Speci men Type: VENOUS BLOOD SPECIMEN Performed By: #### 2 4344-4 ####[facility]ORYCLIA [id number] [address] Methemoglobin (Bld) [Mass fraction] % Normal 0.0-1.5 [facility] Comment on above: Order Comment: Speci men Type: VENOUS BLOOD SPECIMEN Performed By: #### 2 4344-4 ####[facility]ORYCLIA [id number] [address] O2 THERAPY Ventilator Normal [facility] Comment on above: Order Comment: Speci men Type: VENOUS BLOOD SPECIMEN Performed By: #### 2 4344-4 ####[facility] LABORATORYCLIA [id number] [address] Oxygen (BldV) [Partial pressure] 44 mm[Hg] Normal 35-45 [facility] Comment on above: Order Comment: Speci men Type: VENOUS BLOOD SPECIMEN Performed By: #### 2 4344-4 ####[facility]ORYCLIA [id number] [address] Oxygen adjusted to patient's actual temperature (BldV) [Partial pressure] 46.8 mmHg High 35-45 [facility] Comment on above: Order Comment: Speci men Type: VENOUS BLOOD SPECIMEN Performed By: #### 2 4344-4 ####[facility]ORYCLIA [id number] [address] Oxygen saturation in Blood 76.5 % Normal 60-85 [facility] Comment on above: Order Comment: Speci men Type: VENOUS BLOOD SPECIMEN Performed By: #### 2 4344-4 ####[facility]ORYCLIA [id number] [address] Oxyhemoglobin (BldV) [Mass fraction] 75 % Normal 60-85 [facility] Comment on above: Order Comment: Speci men Type: VENOUS BLOOD SPECIMEN Performed By: #### 2 4344-4 ####[facility]ORYCLIA [id number] [address] OF [facility] pH (BldV) 7.42 [pH] Normal 7.32-7.42 [facility] Comment on above: Order Comment: Speci men Type: VENOUS BLOOD SPECIMEN Performed By: #### 2 4344-4 ####[facility]ATORYCLIA [id number] [address] pH adjusted to patient's actual temperature (BldV) 7.40 Normal 7.32-7.42 [facility] Comment on above: Order Comment: Speci men Type: VENOUS BLOOD SPECIMEN Performed By: #### 2 4344-4 ####[facility]ATORYCLIA [id number] [address] OF [facility] Potassium [Moles/Vol] 3.7 mmol/L Normal 3.5-5.0 [facility] Comment on above: Order Comment: Speci men Type: VENOUS BLOOD SPECIMEN Performed By: #### 2 4344-4 ####[facility]ORYCLIA [id number] [address] [place] [facility] Sodium [Moles/Vol] 141 mmol/L Normal 136-144 [facility] Comment on above: Order Comment: Speci men Type: VENOUS BLOOD SPECIMEN Performed By: #### 2 4344-4 ####[facility]ORYCLIA [id number] [address] OF [facility] Magnesium SerPl-mCncon 06-05 Magnesium [Mass/Vol] 2.3 mg/dL Normal 1.7-2.3 [facility] Comment on above: Order Comment: Speci men Type: BLOOD SPECIMEN Performed By: #### 1 9123-9, 73862-0, 2776- ####[facility]ATORYCLIA [id number] [place] [address] [place] Phosphate SerPl-mCncon 06-05 Phosphate [Mass/Vol] 2.9 mg/dL Normal 2.7-4.8 [facility] Comment on above: Order Comment: Speci men Type: BLOOD SPECIMEN Performed By: #### 1 9123-9, 44534-3, 2776-05 ####[facility]ATORYCLIA [id number] [place] [address] [place] Vancomycin random [Mass/Vol] on 06-05-2021 Vancomycin [Mass/Vol] 23.2 ug/mL High 10.0-20.0 [facility] Comment on above: Order Comment: Speci men Type: BLOOD SPECIMEN Result Comment: Refe rence ranges and high/low indicator flags are provided as general guidelines only. The treating physician must determine appropriate target levels/dosing based on the specific clinical situation. Performed By: #### 4 091-5 ####[facility]ATORYCLIA [id number] [place] [address] [place] (1,3)-C-J-XHZPGEgt 2 (1,3) B-D GLUCAN <31 Normal <60 [facility] Comment on above: Order Comment: Speci men Type: BLOOD SPECIMEN Performed By: #### B DGLUC ####[facility] LABCLIA [id number] [id number] [address] [place] (1,3) B-D GLUCAN, QUAL Negative Normal NEGAT [facility] Comment on above: Order Comment: Speci men Type: BLOOD SPECIMEN Result Comment: Cert ain fungi, such as the genus Cryptococcus which produces very low levels of (1,3)-alsx-C-qvuzcb, may not result in serum (1,3)-jrhi-V-asyywp sufficiently elevated so as to be detected by the assay. Infections with fungi of the order Mucorales such as Absidia, Mucor and Rhizopus which are not known to produce (1,3)-tiue-B-qvvifx, are also observed to yield low serum (1,3)-qppd-H-rxjkdr titers.In addition, the yeast phase of Blastomyces dermatitidis produces little (1,3)-bwsi-M-rdrikl and may not be detected by the assay. Performed By: #### B DGLUC ####[facility] LABCLIA [id number] [address] [id number] [address] [place] ALLIED HEALTHon 06-04-2021 ALLIED HEALTH Normal [facility] ALLIED HEALTH Normal [facility] ARTERIAL BLOOD GASESon 06-04 Base excess Calc (Bld) [Moles/Vol] 3 mmol/L High 0-2 [facility] Comment on above: Order Comment: Speci men Type: ARTERIAL BLOOD SPECIMEN Performed By: #### A LLBG ####[facility]ATORYCLIA [id number] [address] Body temperature 98.06 [degF] Normal [facility] Comment on above: Order Comment: Speci men Type: ARTERIAL BLOOD SPECIMEN Performed By: #### A LLBG ####[facility]ATORYCLIA [id number] [address] STATES [facility] CALCIUM IONIZED, PH CORRECTED 1.19 mmol/L Normal 1.08-1.30 [facility] Comment on above: Order Comment: Speci men Type: ARTERIAL BLOOD SPECIMEN Performed By: #### A LLBG ####[facility]ATORYCLIA [id number] [address] [place] Calcium.ionized (BldV) [Mass/Vol] 1.14 mmol/L Normal 1.08-1.30 [facility] Comment on above: Order Comment: Speci men Type: ARTERIAL BLOOD SPECIMEN Performed By: #### A LLBG ####[facility]ATORYCLIA [id number] [address] [place] Carboxyhemoglobin (BldA) [Mass fraction] 1.2 % Normal 0.0-2.0 [facility] Comment on above: Order Comment: Speci men Type: ARTERIAL BLOOD SPECIMEN Result Comment: Carb oxyhemoglobin Reference Range for Smokers: 2.0-8.0% Performed By: #### A LLBG ####[facility]ORYCLIA [id number] [address] CO2 (Bld) [Partial pressure] 35 mm Hg Low 36-46 [facility] Comment on above: Order Comment: Speci men Type: ARTERIAL BLOOD SPECIMEN Performed By: #### A LLBG ####[facility]ORYCLIA [id number] [address] CO2 [Moles/Vol] 23.2 mmol/L Normal 22-28 [facility] Comment on above: Order Comment: Speci men Type: ARTERIAL BLOOD SPECIMEN Performed By: #### A LLBG ####[facility]ORYCLIA [id number] [address] CO2 adjusted to patient's actual temperature (Bld) [Partial pressure] 34 mmHg Low 36-46 [facility] Comment on above: Order Comment: Speci men Type: ARTERIAL BLOOD SPECIMEN Performed By: #### A LLBG ####[facility]ORYCLIA [id number] [address] OF [facility] Glucose [Mass/Vol] 115 mg/dL High 60-105 [facility] Comment on above: Order Comment: Speci men Type: ARTERIAL BLOOD SPECIMEN Performed By: #### A LLBG ####[facility]ORYCLIA [id number] [address] [place] HCO3 (Bld) [Moles/Vol] 26 mmol/L Normal 22-26 [facility] Comment on above: Order Comment: Speci men Type: ARTERIAL BLOOD SPECIMEN Performed By: #### A LLBG ####[facility]ORYCLIA [id number] [address] [place] Hematocrit (Bld) [Volume fraction] 35.3 % Low 39.0-51.0 [facility] Comment on above: Order Comment: Speci men Type: ARTERIAL BLOOD SPECIMEN Performed By: #### A LLBG ####[facility]ORYCLIA [id number] [address] OF [facility] Hemoglobin (Bld) [Mass/Vol] 11.5 g/dL Low 13.0-17.0 [facility] Comment on above: Order Comment: Speci men Type: ARTERIAL BLOOD SPECIMEN Performed By: #### A LLBG ####[facility]ORYCLIA [id number] [address] Methemoglobin (Bld) [Mass fraction] % Normal 0.0-1.5 [facility] Comment on above: Order Comment: Speci men Type: ARTERIAL BLOOD SPECIMEN Performed By: #### A LLBG ####[facility]ORYCLIA [id number] [address] O2 THERAPY Ventilator Normal [facility] Comment on above: Order Comment: Speci men Type: ARTERIAL BLOOD SPECIMEN Performed By: #### A LLBG ####[facility]ORYCLIA [id number] [address] Oxygen (Bld) [Partial pressure] 66 mm Hg Low 85-95 [facility] Comment on above: Order Comment: Speci men Type: ARTERIAL BLOOD SPECIMEN Performed By: #### A LLBG ####[facility]ORYCLIA [id number] [address] Oxygen adjusted to patient's actual temperature (Bld) [Partial pressure] 64.3 mmHg Low 85-95 [facility] Comment on above: Order Comment: Speci men Type: ARTERIAL BLOOD SPECIMEN Performed By: #### A LLBG ####[facility]ORYCLIA [id number] [address] OXYGEN SATURATION, ARTERIAL 95 % Normal 95-98 [facility] Comment on above: Order Comment: Speci men Type: ARTERIAL BLOOD SPECIMEN Performed By: #### A LLBG ####[facility]ORYCLIA [id number] [address] [place] Oxyhemoglobin (BldA) [Mass fraction] 93 % Low 95-98 [facility] Comment on above: Order Comment: Speci men Type: ARTERIAL BLOOD SPECIMEN Performed By: #### A LLBG ####[facility]ATORYCLIA [id number] [address] pH (Bld) 7.49 [pH] High 7.35-7.45 [facility] Comment on above: Order Comment: Speci men Type: ARTERIAL BLOOD SPECIMEN Performed By: #### A LLBG ####[facility]ORYCLIA [id number] [address] pH adjusted to patient's actual temperature (Bld) 7.49 High 7.35-7.45 [facility] Comment on above: Order Comment: Speci men Type: ARTERIAL BLOOD SPECIMEN Performed By: #### A LLBG ####[facility]ATORYCLIA [id number] [address] Potassium [Moles/Vol] 2.8 mmol/L Low 3.5-5.0 [facility] Comment on above: Order Comment: Speci men Type: ARTERIAL BLOOD SPECIMEN Performed By: #### A LLBG ####[facility]ATORYCLIA [id number] [address] Bas Metab 2000 Pnl SerPlon 0 06-04-2021 Sodium [Moles/Vol] 143 mmol/L Normal 136-144 [facility] Comment on above: Order Comment: Speci men Type: BLOOD SPECIMEN Performed By: #### 2 777-1, 95519-1, 62572-4 ####[facility]ATORYCLIA [id number] [address] Order Comment: Speci men Type: ARTERIAL BLOOD SPECIMEN Performed By: #### A LLBG ####[facility]ORYCLIA [id number] [address] Basic metabolic 2000 panelon 06-04-2021 Anion gap [Moles/Vol] 11 mmol/L Normal 9-18 [facility] Comment on above: Order Comment: Speci men Type: BLOOD SPECIMEN Performed By: #### 2 777-1, , ####[facility]ATORYCLIA [id number] [address] STATES [facility] Calcium [Mass/Vol] 8.5 mg/dL Normal 8.5-10.2 [facility] Comment on above: Order Comment: Speci men Type: BLOOD SPECIMEN Performed By: #### 2 777-1, , ####[facility]ATORYCLIA [id number] [address] [place] Chloride [Moles/Vol] 107 mmol/L High 97-105 [facility] Comment on above: Order Comment: Speci men Type: BLOOD SPECIMEN Performed By: #### 2 777-1, , ####[facility]ATORYCLIA [id number] [address] [place] CO2 [Moles/Vol] 25 mmol/L Normal 22-30 [facility] Comment on above: Order Comment: Speci men Type: BLOOD SPECIMEN Performed By: #### 2 777-1, , ####[facility]ATORYCLIA [id number] [address] [place] Creatinine [Mass/Vol] 0.77 mg/dL Normal 0.73-1.22 [facility] Comment on above: Order Comment: Speci men Type: BLOOD SPECIMEN Performed By: #### 2 777-1, , ####[facility]ATORYCLIA [id number] [place] [address] [place] GFR/1.73 sq M.predicted MDRD (S/P/Bld) [Vol rate/Area] mL/min/{1.73_m2} Normal [facility] Comment on above: Order [...] GFR. Performed By: #### 2 777-1, , ####[facility]CLIA [id number] [place] [address] [place] Glucose [Mass/Vol] 107 mg/dL High 74-99 [facility] Comment on above: Order Comment: Speci men Type: BLOOD SPECIMEN Result Comment: The [place] [employer] (ADA) provides guidance for cutoff [...] Standards of Medical Care in Diabetes 2016, [place] [employer]. Diabetes Care. 2016.39(Suppl 1). Performed By: #### 2 777-1, , ####[facility]ORATORYCLIA [id number] [place] [address] [place] Potassium [Moles/Vol] 3.1 mmol/L Low 3.7-5.1 [facility] Comment on above: Order Comment: Speci men Type: BLOOD SPECIMEN Performed By: #### 2 777-1, , 75524-2 ####[facility]ATORYCLIA [id number] [place] [id number] [place] Urea nitrogen [Mass/Vol] 19 mg/dL Normal 9-24 [facility] Comment on above: Order Comment: Speci men Type: BLOOD SPECIMEN Performed By: #### 2 777-1, 93085-4, 26288-8 ####[facility]ATORYCLIA [id number] [address] CBC panel Auto (Bld)on 06-04 Erythrocyte distribution width (RBC) [Ratio] 15.8 % High 11.5-15.0 [facility] Comment on above: Order Comment: Speci men Type: BLOOD SPECIMEN Performed By: #### 5 8410-2 ####[facility]ATORYCLIA [id number] [address] Hematocrit (Bld) [Volume fraction] 36.9 % Low 39.0-51.0 [facility] Comment on above: Order Comment: Speci men Type: BLOOD SPECIMEN Performed By: #### 5 8410-2 ####[facility]ATORYCLIA [id number] [address] Hemoglobin (Bld) [Mass/Vol] 11.2 g/dL Low 13.0-17.0 [facility] Comment on above: Order Comment: Speci men Type: BLOOD SPECIMEN Performed By: #### 5 8410-2 ####[facility]ATORYCLIA [id number] [address] MCH (RBC) [Entitic mass] 27.3 pg Normal 26.0-34.0 [facility] Comment on above: Order Comment: Speci men Type: BLOOD SPECIMEN Performed By: #### 5 8410-2 ####[facility]ORATORYCLIA [id number] [address] OF [facility] MCHC (RBC) [Mass/Vol] 30.4 g/dL Low 30.5-36.0 [facility] Comment on above: Order Comment: Speci men Type: BLOOD SPECIMEN Performed By: #### 5 8410-2 ####[facility]ATORYCLIA [id number] [address] MCV (RBC) [Entitic vol] 89.8 fL Normal 80.0-100.0 [facility] Comment on above: Order Comment: Speci men Type: BLOOD SPECIMEN Performed By: #### 5 8410-2 ####[facility]ATORYCLIA [id number] [address] Nucleated RBC (Bld) [#/Vol] 10*3/uL Normal <0.01 [facility] Comment on above: Order Comment: Speci men Type: BLOOD SPECIMEN Performed By: #### 5 8410-2 ####[facility]ATORYCLIA [id number] [address] Platelet mean volume (Bld) [Entitic vol] 10.7 fL Normal 9.0-12.7 [facility] Comment on above: Order Comment: Speci men Type: BLOOD SPECIMEN Performed By: #### 5 8410-2 ####[facility]ATORYCLIA [id number] [address] Platelets (Bld) [#/Vol] 174 10*3/uL Normal 150-400 [facility] Comment on above: Order Comment: Speci men Type: BLOOD SPECIMEN Performed By: #### 5 8410-2 ####[facility]ATORYCLIA [id number] [address] RBC (Bld) [#/Vol] 4.11 10*6/uL Low 4.20-6.00 [facility] Comment on above: Order Comment: Speci men Type: BLOOD SPECIMEN Performed By: #### 5 8410-2 ####[facility]ATORYCLIA [id number] [address] WBC (Bld) [#/Vol] 8.29 10*3/uL Normal 3.70-11.00 [facility] Comment on above: Order Comment: Speci men Type: BLOOD SPECIMEN Performed By: #### 5 8410-2 ####[facility]ATORYCLIA [id number] [address] [place] CONSULT PROGon 06-04-2021 CONSULT PROG Normal [facility] CT BRAIN WO IVCONon 06-04-19 CT BRAIN WO IVCON Normal [facility] CT CHEST W IVCON PEon 2021 CT CHEST W IVCON PE Normal [facility] Magnesium SerPl-mCncon 06-04 Magnesium [Mass/Vol] 2.2 mg/dL Normal 1.7-2.3 [facility] Comment on above: Order Comment: Speci men Type: BLOOD SPECIMEN Performed By: #### 2 777-1, 48176-3, 43968-8 ####[facility]ATORYCLIA [id number] [address] NT-proBNP [facility] UPMCon 06-04 Natriuretic peptide.B prohormone N-Terminal [Mass/Vol] 229 pg/mL High <125 [facility] Comment on above: Order Comment: Speci men Type: BLOOD SPECIMEN Performed By: #### 3 3762-6, 4091-5 ####[facility]ATORYCLIA [id number] [address] [place] Phosphate SerPl-ncon 06-04 Phosphate [Mass/Vol] 2.0 mg/dL Low 2.7-4.8 [facility] Comment on above: Order Comment: Speci men Type: BLOOD SPECIMEN Performed By: #### 2 777-1, 02729-3, 65065-0 ####[facility]ATORYCLIA [id number] [address] [place] Vancomycin random [Mass/Vol] [...] situation. Performed By: #### 3 3762-6, 4091-5 ####[facility]ATORYCLIA [id number] [address] STATES OF [facility] XR ABDOMEN 1V SUPINEon 06-04 XR ABDOMEN 1V SUPINE Normal [facility] ALLIED HEALTHon 06-03-2021 ALLIED HEALTH Normal [facility] ARTERIAL BLOOD GASESon 06-03 Base excess Calc (Bld) [Moles/Vol] 5 mmol/L High 0-2 [facility] Comment on above: Order Comment: Speci men Type: ARTERIAL BLOOD SPECIMEN Performed By: #### A LLBG ####[facility]ATORYCLIA [id number] [address] Body temperature 99.5 [degF] Normal [facility] Comment on above: Order Comment: Speci men Type: ARTERIAL BLOOD SPECIMEN Performed By: #### A LLBG ####[facility]ATORYCLIA [id number] [address] OF [facility] CALCIUM IONIZED, PH CORRECTED 1.18 mmol/L Normal 1.08-1.30 [facility] Comment on above: Order Comment: Speci men Type: ARTERIAL BLOOD SPECIMEN Performed By: #### A LLBG ####[facility]ATORYCLIA [id number] [address] Calcium.ionized (BldV) [Mass/Vol] 1.16 mmol/L Normal 1.08-1.30 [facility] Comment on above: Order Comment: Speci men Type: ARTERIAL BLOOD SPECIMEN Performed By: #### A LLBG ####[facility]ATORYCLIA [id number] [address] OF [facility] Carboxyhemoglobin (BldA) [Mass fraction] 1.2 % Normal 0.0-2.0 [facility] Comment on above: Order Comment: Speci men Type: ARTERIAL BLOOD SPECIMEN Result Comment: Carb oxyhemoglobin Reference Range for Smokers: 2.0-8.0% Performed By: #### A LLBG ####[facility]ATORYCLIA [id number] [place] CO2 (Bld) [Partial pressure] 45 mm Hg Normal 36-46 [facility] Comment on above: Order Comment: Speci men Type: ARTERIAL BLOOD SPECIMEN Performed By: #### A LLBG ####[facility]ORYCLIA [id number] [address] [place] CO2 [Moles/Vol] 26.9 mmol/L Normal 22-28 [facility] Comment on above: Order Comment: Speci men Type: ARTERIAL BLOOD SPECIMEN Performed By: #### A LLBG ####[facility]ATORYCLIA [id number] [address] CO2 adjusted to patient's actual temperature (Bld) [Partial pressure] 47 mmHg High 36-46 [facility] Comment on above: Order Comment: Speci men Type: ARTERIAL BLOOD SPECIMEN Performed By: #### A LLBG ####[facility]ATORYCLIA [id number] [address] [place] Glucose [Mass/Vol] 141 mg/dL High 60-105 [facility] Comment on above: Order Comment: Speci men Type: ARTERIAL BLOOD SPECIMEN Performed By: #### A LLBG ####[facility]ATORYCLIA [id number] [address] [place] HCO3 (Bld) [Moles/Vol] 30 mmol/L High 22-26 [facility] Comment on above: Order Comment: Speci men Type: ARTERIAL BLOOD SPECIMEN Performed By: #### A LLBG ####[facility]ORYCLIA [id number] [address] [place] Hematocrit (Bld) [Volume fraction] 35.8 % Low 39.0-51.0 [facility] Comment on above: Order Comment: Speci men Type: ARTERIAL BLOOD SPECIMEN Performed By: #### A LLBG ####[facility]ORYCLIA [id number] [address] [place] Hemoglobin (Bld) [Mass/Vol] 11.6 g/dL Low 13.0-17.0 [facility] Comment on above: Order Comment: Speci men Type: ARTERIAL BLOOD SPECIMEN Performed By: #### A LLBG ####[facility]ORYCLIA [id number] [address] Methemoglobin (Bld) [Mass fraction] % Normal 0.0-1.5 [facility] Comment on above: Order Comment: Speci men Type: ARTERIAL BLOOD SPECIMEN Performed By: #### A LLBG ####[facility]ORYCLIA [id number] [address] [place] O2 THERAPY Ventilator Normal [facility] Comment on above: Order Comment: Speci men Type: ARTERIAL BLOOD SPECIMEN Performed By: #### A LLBG ####[facility]ORYCLIA [id number] [address] Oxygen (Bld) [Partial pressure] 69 mm Hg Low 85-95 [facility] Comment on above: Order Comment: Speci men Type: ARTERIAL BLOOD SPECIMEN Performed By: #### A LLBG ####[facility]ORYCLIA [id number] [address] Oxygen adjusted to patient's actual temperature (Bld) [Partial pressure] 70.8 mmHg Low 85-95 [facility] Comment on above: Order Comment: Speci men Type: ARTERIAL BLOOD SPECIMEN Performed By: #### A LLBG ####[facility]ORYCLIA [id number] [address] OXYGEN SATURATION, ARTERIAL 94 % Low 95-98 [facility] Comment on above: Order Comment: Speci men Type: ARTERIAL BLOOD SPECIMEN Performed By: #### A LLBG ####[facility]ORYCLIA [id number] [address] Oxyhemoglobin (BldA) [Mass fraction] 93 % Low 95-98 [facility] Comment on above: Order Comment: Speci men Type: ARTERIAL BLOOD SPECIMEN Performed By: #### A LLBG ####[facility]ORYCLIA [id number] [address] [place] pH (Bld) 7.43 [pH] Normal 7.35-7.45 [facility] Comment on above: Order Comment: Speci men Type: ARTERIAL BLOOD SPECIMEN Performed By: #### A LLBG ####[facility]ATORYCLIA [id number] [address] pH adjusted to patient's actual temperature (Bld) 7.43 Normal 7.35-7.45 [facility] Comment on above: Order Comment: Speci men Type: ARTERIAL BLOOD SPECIMEN Performed By: #### A LLBG ####[facility]ATORYCLIA [id number] [address] Potassium [Moles/Vol] 3.1 mmol/L Low 3.5-5.0 [facility] Comment on above: Order Comment: Speci men Type: ARTERIAL BLOOD SPECIMEN Performed By: #### A LLBG ####[facility]ATORYCLIA [id number] [address] [place] Sodium [Moles/Vol] 145 mmol/L High 136-144 [facility] Comment on above: Order Comment: Speci men Type: ARTERIAL BLOOD SPECIMEN Performed By: #### A LLBG ####[facility]ORATORYCLIA [id number] [address] [place] ASPERGILLUS GALACTOMANNAN SE RUMon 06-03-2021 Galactomannan Ag IA Ql Negative Normal NEGAT [facility] Comment on above: Order [...] is suspected. Performed By: #### A SGALS ####[facility] LABCLIA [id number] [place] [id number] [place] Galactomannan Ag IA Qn <0.50 Normal [facility] Comment on above: Order Comment: Speci men Type: BLOOD SPECIMEN Result Comment: Inde x Values are Interpreted as Follows:Negative specimens <0.50Positive specimens >=0.50 Performed By: #### A SGALS ####[facility] LABCLIA [id number] [id number] [address] [place] Basic metabolic 2000 panelon 06-03-2021 Anion gap [Moles/Vol] 8 mmol/L Low 9-18 [facility] Comment on above: Order Comment: Speci men Type: BLOOD SPECIMEN Performed By: #### 1 9123-9, 2777-1, 88320-9 ####[facility]ATORYCLIA [id number] [place] [address] [place] Calcium [Mass/Vol] 8.0 mg/dL Low 8.5-10.2 [facility] Comment on above: Order Comment: Speci men Type: BLOOD SPECIMEN Performed By: #### 1 9123-9, 27711-04, 79362-1 ####[facility]ATORYCLIA [id number] [place] [address] [place] Chloride [Moles/Vol] 110 mmol/L High 97-105 [facility] Comment on above: Order Comment: Speci men Type: BLOOD SPECIMEN Performed By: #### 1 9123-9, 27711-04, 95949-3 ####[facility]ORYCLIA [id number] [place] [address] [place] CO2 [Moles/Vol] 28 mmol/L Normal 22-30 [facility] Comment on above: Order Comment: Speci men Type: BLOOD SPECIMEN Performed By: #### 1 9123-9, 27771, 32053-7 ####[facility]ATORYCLIA [id number] [address] [place] Creatinine [Mass/Vol] 0.75 mg/dL Normal 0.73-1.22 [facility] Comment on above: Order Comment: Speci men Type: BLOOD SPECIMEN Performed By: #### 1 9123-9, 2777-1, 36530-4 ####[facility]CLIA [id number] [place] [id number] [place] GFR/1.73 sq M.predicted MDRD (S/P/Bld) [Vol rate/Area] mL/min/{1.73_m2} Normal [facility] Comment on above: Order [...] GFR. Performed By: #### 1 9123-9, 2777-1, 26874-6 ####[facility] [id number] [place] [id number] [place] Glucose [Mass/Vol] 141 mg/dL High 74-99 [facility] Comment on above: Order Comment: Speci men Type: BLOOD SPECIMEN Result Comment: The [place] [employer] (ADA) provides guidance for cutoff [...] Standards of Medical Care in Diabetes 2016, [place] [employer]. Diabetes Care. 2016.39(Suppl 1). Performed By: #### 1 9123-9, 2777-1, 37675-6 ####[facility]ORATORYCLIA [id number] [place], [place] [address] [place] [address] STATES OF [facility] Potassium [Moles/Vol] 3.3 mmol/L Low 3.7-5.1 [facility] Comment on above: Order Comment: Speci men Type: BLOOD SPECIMEN Performed By: #### 1 9123-9, 2777-1, 09255-3 ####[facility]ORATORYCLIA [id number] [address] STATES OF [facility] Sodium [Moles/Vol] 146 mmol/L High 136-144 [facility] Comment on above: Order Comment: Speci men Type: BLOOD SPECIMEN Performed By: #### 1 9123-9, 2777-1, 04861-8 ####[facility]ATORYCLIA [id number] [address] STATES [facility] Urea nitrogen [Mass/Vol] 10 mg/dL Normal 9-24 [facility] Comment on above: Order Comment: Speci men Type: BLOOD SPECIMEN Performed By: #### 1 9123-9, 2777-1, 91232-9 ####[facility]ORATORYCLIA [id number] [address] OF [facility] CASE MANAGEMon 06-03-2021 CASE MANAGEM Normal [facility] CBC panel Auto (Bld)on 06-03 Erythrocyte distribution width (RBC) [Ratio] 15.6 % High 11.5-15.0 [facility] Comment on above: Order Comment: Speci men Type: BLOOD SPECIMEN Performed By: #### 5 8410-2 ####[facility]ATORYCLIA [id number] [address] STATES OF [facility] Hematocrit (Bld) [Volume fraction] 36.9 % Low 39.0-51.0 [facility] Comment on above: Order Comment: Speci men Type: BLOOD SPECIMEN Performed By: #### 5 8410-2 ####[facility]ATORYCLIA [id number] [address] STATES [facility] Hemoglobin (Bld) [Mass/Vol] 11.1 g/dL Low 13.0-17.0 [facility] Comment on above: Order Comment: Speci men Type: BLOOD SPECIMEN Performed By: #### 5 8410-2 ####[facility]ORATORYCLIA [id number] [address] MCH (RBC) [Entitic mass] 27.0 pg Normal 26.0-34.0 [facility] Comment on above: Order Comment: Speci men Type: BLOOD SPECIMEN Performed By: #### 5 8410-2 ####[facility]ATORYCLIA [id number] [address] MCHC (RBC) [Mass/Vol] 30.1 g/dL Low 30.5-36.0 [facility] Comment on above: Order Comment: Speci men Type: BLOOD SPECIMEN Performed By: #### 5 8410-2 ####[facility]ATORYCLIA [id number] [address] MCV (RBC) [Entitic vol] 89.8 fL Normal 80.0-100.0 [facility] Comment on above: Order Comment: Speci men Type: BLOOD SPECIMEN Performed By: #### 5 8410-2 ####[facility]ATORYCLIA [id number] [address] Nucleated RBC (Bld) [#/Vol] 10*3/uL Normal <0.01 [facility] Comment on above: Order Comment: Speci men Type: BLOOD SPECIMEN Performed By: #### 5 8410-2 ####[facility]ATORYCLIA [id number] [address] Platelet mean volume (Bld) [Entitic vol] 10.5 fL Normal 9.0-12.7 [facility] Comment on above: Order Comment: Speci men Type: BLOOD SPECIMEN Performed By: #### 5 8410-2 ####[facility]ORYCLIA [id number] [address] Platelets (Bld) [#/Vol] 196 10*3/uL Normal 150-400 [facility] Comment on above: Order Comment: Speci men Type: BLOOD SPECIMEN Performed By: #### 5 8410-2 ####[facility]ORYCLIA [id number] [address] RBC (Bld) [#/Vol] 4.11 10*6/uL Low 4.20-6.00 [facility] Comment on above: Order Comment: Speci men Type: BLOOD SPECIMEN Performed By: #### 5 8410-2 ####[facility]ATORYCLIA [id number] [address] OF [facility] WBC (Bld) [#/Vol] 8.18 10*3/uL Normal 3.70-11.00 [facility] Comment on above: Order Comment: Speci men Type: BLOOD SPECIMEN Performed By: #### 5 8410-2 ####[facility]ATORYCLIA [id number] [address] OF [facility] CONSULTon 06-03-2021 CONSULT Normal [facility] CONSULT PROGon 06-03-2021 CONSULT PROG Normal [facility] Gas and Carbon monoxide pane l (BldV)on 06-03-2021 Base excess Calc (BldV) [Moles/Vol] 1.4 mmol/L Normal 0-2 [facility] Comment on above: Order Comment: Speci men Type: VENOUS BLOOD SPECIMEN Performed By: #### 2 4344-4 ####[facility]ATORYCLIA [id number] [address] Body temperature 98.42 [degF] Normal [facility] Comment on above: Order Comment: Speci men Type: VENOUS BLOOD SPECIMEN Performed By: #### 2 4344-4 ####[facility]ORATORYCLIA [id number] [address] CALCIUM IONIZED, PH CORRECTED 1.09 mmol/L Normal 1.08-1.30 [facility] Comment on above: Order Comment: Speci men Type: VENOUS BLOOD SPECIMEN Performed By: #### 2 4344-4 ####[facility]ORYCLIA [id number] [address] Calcium.ionized (BldV) [Mass/Vol] 1.12 mmol/L Normal 1.08-1.30 [facility] Comment on above: Order Comment: Speci men Type: VENOUS BLOOD SPECIMEN Performed By: #### 2 4344-4 ####[facility]ORYCLIA [id number] [address] Carboxyhemoglobin (BldV) [Mass fraction] 1.7 % Normal 0.0-2.0 [facility] Comment on above: Order Comment: Speci men Type: VENOUS BLOOD SPECIMEN Result Comment: Carb oxyhemoglobin Reference Range for Smokers: 2.0-8.0% Performed By: #### 2 4344-4 ####[facility]ORYCLIA [id number] [address] CO2 (BldV) [Partial pressure] 50 mm[Hg] Normal 42-55 [facility] Comment on above: Order Comment: Speci men Type: VENOUS BLOOD SPECIMEN Performed By: #### 2 4344-4 ####[facility]ORYCLIA [id number] [address] CO2 [Moles/Vol] 24.9 mmol/L Low 25-29 [facility] Comment on above: Order Comment: Speci men Type: VENOUS BLOOD SPECIMEN Performed By: #### 2 4344-4 ####[facility]ORYCLIA [id number] [address] CO2 adjusted to patient's actual temperature (BldV) [Partial pressure] 50 mmHg Normal 42-55 [facility] Comment on above: Order Comment: Speci men Type: VENOUS BLOOD SPECIMEN Performed By: #### 2 4344-4 ####[facility]ORYCLIA [id number] [address] FIO2 30 % Normal [facility] Comment on above: Order Comment: Speci men Type: VENOUS BLOOD SPECIMEN Performed By: #### 2 4344-4 ####[facility]ORYCLIA [id number] [address] OF [facility] Glucose [Mass/Vol] 191 mg/dL High 60-105 [facility] Comment on above: Order Comment: Speci men Type: VENOUS BLOOD SPECIMEN Performed By: #### 2 4344-4 ####[facility]ORATORYCLIA [id number] [address] OF [facility] HCO3 (Bld) [Moles/Vol] 27.1 mmol/L Normal 24-28 [facility] Comment on above: Order Comment: Speci men Type: VENOUS BLOOD SPECIMEN Performed By: #### 2 4344-4 ####[facility]ORYCLIA [id number] [address] Hematocrit (Bld) [Volume fraction] 36.2 % Low 39.0-51.0 [facility] Comment on above: Order Comment: Speci men Type: VENOUS BLOOD SPECIMEN Performed By: #### 2 4344-4 ####[facility]ORYCLIA [id number] [address] OF [facility] Hemoglobin (Bld) [Mass/Vol] 11.8 g/dL Low 13.0-17.0 [facility] Comment on above: Order Comment: Speci men Type: VENOUS BLOOD SPECIMEN Performed By: #### 2 4344-4 ####[facility]ORYCLIA [id number] [address] INHALED TIDAL VOLUME (ML) 530 Normal [facility] Comment on above: Order Comment: Speci men Type: VENOUS BLOOD SPECIMEN Performed By: #### 2 4344-4 ####[facility]ORYCLIA [id number] [address] Methemoglobin (Bld) [Mass fraction] % Normal 0.0-1.5 [facility] Comment on above: Order Comment: Speci men Type: VENOUS BLOOD SPECIMEN Performed By: #### 2 4344-4 ####[facility]ORYCLIA [id number] [place], [place] [id number] [place] [address] [place] O2 THERAPY Ventilator Normal [facility] Comment on above: Order Comment: Speci men Type: VENOUS BLOOD SPECIMEN Performed By: #### 2 4344-4 ####[facility]ORYCLIA [id number] [place], [place] [id number] [place] [address] [place] Oxygen (BldV) [Partial pressure] 69 mm[Hg] High 35-45 [facility] Comment on above: Order Comment: Speci men Type: VENOUS BLOOD SPECIMEN Performed By: #### 2 4344-4 ####[facility]ORYCLIA [id number] [place], [place] [id number] [place] [address] [place] Oxygen adjusted to patient's actual temperature (BldV) [Partial pressure] 68.8 mmHg High 35-45 [facility] Comment on above: Order Comment: Speci men Type: VENOUS BLOOD SPECIMEN Performed By: #### 2 4344-4 ####[facility]ORYCLIA [id number] [place], [place] [id number] [place] [address] [place] Oxygen saturation in Blood 92.4 % High 60-85 [facility] Comment on above: Order Comment: Speci men Type: VENOUS BLOOD SPECIMEN Performed By: #### 2 4344-4 ####[facility]ORYCLIA [id number] [place], [place] [id number] [place] [address] [place] Oxyhemoglobin (BldV) [Mass fraction] 90 % High 60-85 [facility] [facility] Comment on above: Order Comment: Speci men Type: VENOUS BLOOD SPECIMEN Performed By: #### 2 4344-4 ####[facility]ATORYCLIA [id number] [place], [place] [address] [place] [address] [place] PEEP/CPAP 8 cmH2O Normal [facility] Comment on above: Order Comment: Speci men Type: VENOUS BLOOD SPECIMEN Performed By: #### 2 4344-4 ####[facility]ORYCLIA [id number] [place], [place] [address] [place] [address] [place] pH (BldV) 7.35 [pH] Normal 7.32-7.42 [facility] Comment on above: Order Comment: Speci men Type: VENOUS BLOOD SPECIMEN Performed By: #### 2 4344-4 ####[facility]ORYCLIA [id number] [address] pH adjusted to patient's actual temperature (BldV) 7.35 Normal 7.32-7.42 [facility] Comment on above: Order Comment: Speci men Type: VENOUS BLOOD SPECIMEN Performed By: #### 2 4344-4 ####[facility]ORYCLIA [id number] [address] Potassium [Moles/Vol] 3.6 mmol/L Normal 3.5-5.0 [facility] Comment on above: Order Comment: Speci men Type: VENOUS BLOOD SPECIMEN Performed By: #### 2 4344-4 ####[facility]ORYCLIA [id number] [address] SET VENTILATOR RESPIRATORY RATE (BPM) 18 BPM Normal [facility] Comment on above: Order Comment: Speci men Type: VENOUS BLOOD SPECIMEN Performed By: #### 2 4344-4 ####[facility]ORATORYCLIA [id number] [address] Sodium [Moles/Vol] 141 mmol/L Normal 136-144 [facility] Comment on above: Order Comment: Speci men Type: VENOUS BLOOD SPECIMEN Performed By: #### 2 4344-4 ####[facility]ORATORYCLIA [id number] [address] OF [facility] HIV 1+2 Ab IA Qlon 2 HIV 1 and 2 Ab IA.rapid Nom Normal [facility] Comment on above: Order Comment: Speci men Type: BLOOD SPECIMEN Result Comment: Test not indicated. Performed By: #### 3 1201-7, TOXMG ####[facility]ORYCLIA [id number] [address] HIV 1+2 Ab+HIV1 p24 Ag IA Ql Non-Reactive Normal Nonreactive [facility] Comment on above: Order Comment: Speci men Type: BLOOD SPECIMEN Result Comment: [place] Rev. Code 3701.243(E): This information has been [...] diagnoses. Performed By: #### 3 1201-7, TOXMG ####[facility]ORATORYCLIA [id number] [address] HIVINT Normal [facility] Comment on above: Order Comment: Speci men Type: BLOOD SPECIMEN Result Comment: No e vidence of HIV-1 or HIV-2 infection. Should recent infection be suspected, repeat testing may be considered 2-3 weeks after this draw. Performed By: #### 3 1201-7, TOXMG ####[facility]ORATORYCLIA [id number] [address] [place] Magnesium SerPl-mCncon 06-03 Magnesium [Mass/Vol] 1.9 mg/dL Normal 1.7-2.3 [facility] Comment on above: Order Comment: Speci men Type: BLOOD SPECIMEN Performed By: #### 1 9123-9, 2777-1, 71426-4 ####[facility]ATORYCLIA [id number] [address] [place] NUTRITIONon 06-03-2021 NUTRITION Normal [facility] Phosphate SerPl-mCncon 06-03 Phosphate [Mass/Vol] 1.9 mg/dL Low 2.7-4.8 [facility] Comment on above: Order Comment: Speci men Type: BLOOD SPECIMEN Performed By: #### 1 9123-9, 2777-1, 73119-2 ####[facility]ORATORYCLIA [id number] [address] OF [place] TOXOPLASMOSIS IGM AND IGG AB on 06-03-2021 TOXO IGG QUAL Negative Normal Negative [facility] Comment on above: Order Comment: Speci men Type: BLOOD SPECIMEN Result Comment: No s erological evidence of past exposure to Toxoplasma gondii. Cannot exclude recent infection if the specimen collected within 3-4 weeks after infection.Negative <6.4 IU/mLEquivocal 6.4-9.9 IU/mLPositive >=10.0 IU/mL Performed By: #### 3 1201-7, TOXMG ####[facility]ORATORYCLIA [id number] [address] OF [facility] TOXO IGM QUAL Negative Normal Negative [facility] Comment on above: Order Comment: Speci men Type: BLOOD SPECIMEN Result Comment: No s erological evidence of recent exposure to Toxoplasma gondii.Negative <0.9 IndexEquivocal 0.9-0.99 IndexPositive >=1.0 Index Performed By: #### 3 1201-7, TOXMG ####[facility]ORATORYCLIA [id number] [address] [place] US DVT LOWER BILon US DVT LOWER RAINER Normal [facility] XR CHEST 1V FRONTALon 2021 XR CHEST 1V FRONTAL Normal [facility] ARTERIAL BLOOD GASESon 06-02 Base excess Calc (Bld) [Moles/Vol] 2 mmol/L Normal 0-2 [facility] Comment on above: Order Comment: Speci men Type: ARTERIAL BLOOD SPECIMEN Performed By: #### A LLBG ####[facility]ORATORYCLIA [id number] [address] [place] Body temperature 99.32 [degF] Normal [facility] Comment on above: Order Comment: Speci men Type: ARTERIAL BLOOD SPECIMEN Performed By: #### A LLBG ####[facility]ORATORYCLIA [id number] [address] STATES OF [facility] CALCIUM IONIZED, PH CORRECTED 1.15 mmol/L Normal 1.08-1.30 [facility] Comment on above: Order Comment: Speci men Type: ARTERIAL BLOOD SPECIMEN Performed By: #### A LLBG ####[facility]ATORYCLIA [id number] [address] Calcium.ionized (BldV) [Mass/Vol] 1.13 mmol/L Normal 1.08-1.30 [facility] Comment on above: Order Comment: Speci men Type: ARTERIAL BLOOD SPECIMEN Performed By: #### A LLBG ####[facility]ORYCLIA [id number] [address] OF [place] Carboxyhemoglobin (BldA) [Mass fraction] 1.4 % Normal 0.0-2.0 [facility] Comment on above: Order Comment: Speci men Type: ARTERIAL BLOOD SPECIMEN Result Comment: Carb oxyhemoglobin Reference Range for Smokers: 2.0-8.0% Performed By: #### A LLBG ####[facility]ATORYCLIA [id number] [address] CO2 (Bld) [Partial pressure] 39 mm Hg Normal 36-46 [facility] Comment on above: Order Comment: Speci men Type: ARTERIAL BLOOD SPECIMEN Performed By: #### A LLBG ####[facility]ATORYCLIA [id number] [address] CO2 [Moles/Vol] 23.4 mmol/L Normal 22-28 [facility] Comment on above: Order Comment: Speci men Type: ARTERIAL BLOOD SPECIMEN Performed By: #### A LLBG ####[facility]ORYCLIA [id number] [address] CO2 adjusted to patient's actual temperature (Bld) [Partial pressure] 40 mmHg Normal 36-46 [facility] Comment on above: Order Comment: Speci men Type: ARTERIAL BLOOD SPECIMEN Performed By: #### A LLBG ####[facility]ORYCLIA [id number] [address] OF [place] Glucose [Mass/Vol] 156 mg/dL High 60-105 [facility] Comment on above: Order Comment: Speci men Type: ARTERIAL BLOOD SPECIMEN Performed By: #### A LLBG ####[facility]ORYCLIA [id number] [address] OF [facility] HCO3 (Bld) [Moles/Vol] 26 mmol/L Normal 22-26 [facility] Comment on above: Order Comment: Speci men Type: ARTERIAL BLOOD SPECIMEN Performed By: #### A LLBG ####[facility]ATORYCLIA [id number] [address] OF [place] Hematocrit (Bld) [Volume fraction] 33.9 % Low 39.0-51.0 [facility] Comment on above: Order Comment: Speci men Type: ARTERIAL BLOOD SPECIMEN Performed By: #### A LLBG ####[facility]ORYCLIA [id number] [address] Hemoglobin (Bld) [Mass/Vol] 11.0 g/dL Low 13.0-17.0 [facility] Comment on above: Order Comment: Speci men Type: ARTERIAL BLOOD SPECIMEN Performed By: #### A LLBG ####[facility]ATORYCLIA [id number] [address] Methemoglobin (Bld) [Mass fraction] % Normal 0.0-1.5 [facility] Comment on above: Order Comment: Speci men Type: ARTERIAL BLOOD SPECIMEN Performed By: #### A LLBG ####[facility]ATORYCLIA [id number] [address] OF [place] O2 THERAPY Ventilator Normal [facility] Comment on above: Order Comment: Speci men Type: ARTERIAL BLOOD SPECIMEN Performed By: #### A LLBG ####[facility]ATORYCLIA [id number] [address] Oxygen (Bld) [Partial pressure] 70 mm Hg Low 85-95 [facility] Comment on above: Order Comment: Speci men Type: ARTERIAL BLOOD SPECIMEN Performed By: #### A LLBG ####[facility]ATORYCLIA [id number] [address] OF [place] Oxygen adjusted to patient's actual temperature (Bld) [Partial pressure] 72.2 mmHg Low 85-95 [facility] Comment on above: Order Comment: Speci men Type: ARTERIAL BLOOD SPECIMEN Performed By: #### A LLBG ####[facility]ATORYCLIA [id number] [address] OXYGEN SATURATION, ARTERIAL 96 % Normal 95-98 [facility] Comment on above: Order Comment: Speci men Type: ARTERIAL BLOOD SPECIMEN Performed By: #### A LLBG ####[facility]ORYCLIA [id number] [address] Oxyhemoglobin (BldA) [Mass fraction] 94 % Low 95-98 [facility] Comment on above: Order Comment: Speci men Type: ARTERIAL BLOOD SPECIMEN Performed By: #### A LLBG ####[facility]ATORYCLIA [id number] [address] OF [facility] pH (Bld) 7.43 [pH] Normal 7.35-7.45 [facility] Comment on above: Order Comment: Speci men Type: ARTERIAL BLOOD SPECIMEN Performed By: #### A LLBG ####[facility]ORYCLIA [id number] [address] pH adjusted to patient's actual temperature (Bld) 7.42 Normal 7.35-7.45 [facility] Comment on above: Order Comment: Speci men Type: ARTERIAL BLOOD SPECIMEN Performed By: #### A LLBG ####[facility]CLIA [id number] [address] OF [place] Potassium [Moles/Vol] 2.6 mmol/L Low 3.5-5.0 [facility] Comment on above: Order Comment: Speci men Type: ARTERIAL BLOOD SPECIMEN Performed By: #### A LLBG ####[facility]ORYCLIA [id number] [address] Sodium [Moles/Vol] 142 mmol/L Normal 136-144 [facility] Comment on above: Order Comment: Speci men Type: ARTERIAL BLOOD SPECIMEN Performed By: #### A LLBG ####[facility]ORYCLIA [id number] [place] [address] [place] Ammonia Plas-sCncon 06-02-19 22 Ammonia (P) [Moles/Vol] 20 umol/L Normal 16-60 [facility] Comment on above: Order Comment: Speci men Type: BLOOD SPECIMEN Performed By: #### 1 6362-6 ####[facility]ORATORYCLIA [id number] [address] [place] Bacteria CSF Culton 06-02-19 22 Bacteria identified Cx Nom (CSF) CULTURE, CSF: No growth 14 days GRAM STAIN: No organisms seen Rare Polymorphonuclear leukocytes Gram stain performed on cytospun specimen. Normal [facility] Comment on above: Performed By: #### 6 06-4 ####[facility]ATORYCLIA [id number] [address] [place] Basic metabolic 2000 panelon 06-02-2021 Anion gap [Moles/Vol] 10 mmol/L Normal 9-18 [facility] Comment on above: Order Comment: Speci men Type: BLOOD SPECIMEN Performed By: #### 2 4321-2, , 2776-05 ####[facility]ATORYCLIA [id number] [place] [address] [place] Calcium [Mass/Vol] 8.1 mg/dL Low 8.5-10.2 [facility] Comment on above: Order Comment: Speci men Type: BLOOD SPECIMEN Performed By: #### 2 4321-2, , 2776-05 ####[facility]ATORYCLIA [id number] [place] [address] [place] Chloride [Moles/Vol] 108 mmol/L High 97-105 [facility] Comment on above: Order Comment: Speci men Type: BLOOD SPECIMEN Performed By: #### 2 4321-2, , 2776-05 ####[facility]ATORYCLIA [id number] [place] [address] [place] CO2 [Moles/Vol] 24 mmol/L Normal 22-30 [facility] Comment on above: Order Comment: Speci men Type: BLOOD SPECIMEN Performed By: #### 2 4321-2, , 2776-05 ####[facility]ORATORYCLIA [id number] [place] [address] [place] [facility] Creatinine [Mass/Vol] 0.78 mg/dL Normal 0.73-1.22 [facility] Comment on above: Order Comment: Speci men Type: BLOOD SPECIMEN Performed By: #### 2 4321-2, , 2776-05 ####[facility]ATORYCLIA [id number] [place], [place] [address] [place] [address] [place] GFR/1.73 sq M.predicted MDRD (S/P/Bld) [Vol rate/Area] mL/min/{1.73_m2} Normal [facility] Comment on above: Order [...] Performed By: #### 2 4321-2, , 2776-05 ####[facility]ATORYCLIA [id number] [place] [address] [place] Glucose [Mass/Vol] 162 mg/dL High 74-99 [facility] Comment on above: Order Comment: Speci men Type: BLOOD SPECIMEN Result Comment: The [place] [employer] (ADA) provides guidance for cutoff [...] Standards of Medical Care in Diabetes 2016, [place] [employer]. Diabetes Care. 2016.39(Suppl 1). Performed By: #### 2 4321-2, , 2776-05 ####[facility]ATORYCLIA [id number] [address] Potassium [Moles/Vol] 2.7 mmol/L Low 3.7-5.1 [facility] Comment on above: Order Comment: Speci men Type: BLOOD SPECIMEN Performed By: #### 2 1-2, , 2776-05 ####[facility]ATORYCLIA [id number] [address] Sodium [Moles/Vol] 142 mmol/L Normal 136-144 [facility] Comment on above: Order Comment: Speci men Type: BLOOD SPECIMEN Performed By: #### 2 1-2, , 2776-05 ####[facility]ATORYCLIA [id number] [address] Urea nitrogen [Mass/Vol] 12 mg/dL Normal 9-24 [facility] Comment on above: Order Comment: Speci men Type: BLOOD SPECIMEN Performed By: #### 2 1-2, , 2776-05 ####[facility]ATORYCLIA [id number] [address] CBC panel Auto (Bld)on 06-02 Erythrocyte distribution width (RBC) [Ratio] 15.0 % Normal 11.5-15.0 [facility] Comment on above: Order Comment: Speci men Type: BLOOD SPECIMEN Performed By: #### 5 8410-2 ####[facility]ATORYCLIA [id number] [address] Hematocrit (Bld) [Volume fraction] 34.3 % Low 39.0-51.0 [facility] Comment on above: Order Comment: Speci men Type: BLOOD SPECIMEN Performed By: #### 5 8410-2 ####[facility]ATORYCLIA [id number] [address] Hemoglobin (Bld) [Mass/Vol] 10.3 g/dL Low 13.0-17.0 [facility] Comment on above: Order Comment: Speci men Type: BLOOD SPECIMEN Performed By: #### 5 8410-2 ####[facility]ATORYCLIA [id number] [address] MCH (RBC) [Entitic mass] 27.0 pg Normal 26.0-34.0 [facility] Comment on above: Order Comment: Speci men Type: BLOOD SPECIMEN Performed By: #### 5 8410-2 ####[facility]ATORYCLIA [id number] [address] MCHC (RBC) [Mass/Vol] 30.0 g/dL Low 30.5-36.0 [facility] Comment on above: Order Comment: Speci men Type: BLOOD SPECIMEN Performed By: #### 5 8410-2 ####[facility]ATORYCLIA [id number] [address] MCV (RBC) [Entitic vol] 90.0 fL Normal 80.0-100.0 [facility] Comment on above: Order Comment: Speci men Type: BLOOD SPECIMEN Performed By: #### 5 8410-2 ####[facility]ATORYCLIA [id number] [address] Nucleated RBC (Bld) [#/Vol] 10*3/uL Normal <0.01 [facility] Comment on above: Order Comment: Speci men Type: BLOOD SPECIMEN Performed By: #### 5 8410-2 ####[facility]ORYCLIA [id number] [address] Platelet mean volume (Bld) [Entitic vol] 10.2 fL Normal 9.0-12.7 [facility] Comment on above: Order Comment: Speci men Type: BLOOD SPECIMEN Performed By: #### 5 8410-2 ####[facility]ORYCLIA [id number] [address] OF [facility] Platelets (Bld) [#/Vol] 194 10*3/uL Normal 150-400 [facility] Comment on above: Order Comment: Speci men Type: BLOOD SPECIMEN Performed By: #### 5 8410-2 ####[facility]ORYCLIA [id number] [address] OF [facility] RBC (Bld) [#/Vol] 3.81 10*6/uL Low 4.20-6.00 [facility] Comment on above: Order Comment: Speci men Type: BLOOD SPECIMEN Performed By: #### 5 8410-2 ####[facility]ORYCLIA [id number] [address] WBC (Bld) [#/Vol] 9.22 10*3/uL Normal 3.70-11.00 [facility] Comment on above: Order Comment: Speci men Type: BLOOD SPECIMEN Performed By: #### 5 8410-2 ####[facility]ORYCLIA [id number] [address] CONSULT PROGon 06-02-2021 CONSULT PROG Normal [facility] CSF MANUAL DIFFon 06-02-2021 DIF TTL, CSF 25 cells counted Normal [facility] Comment on above: Order Comment: Speci men Type: CEREBROSPINAL FLUID Performed By: #### 3 4563-7, [id number], [id number] ####[facility]ATORYCLIA [id number] [address] OF [facility] LYMPH%, CSF 4 % Low 50-90 [facility] Comment on above: Order Comment: Speci men Type: CEREBROSPINAL FLUID Performed By: #### 3 4563-7, [id number], [id number] ####[facility]ORYCLIA [id number] [address] [place] MACRO%, CSF 4 % High <1 [facility] Comment on above: Order Comment: Speci men Type: CEREBROSPINAL FLUID Performed By: #### 3 4563-7, [id number], [id number] ####[facility]ORYCLIA [id number] [address] [place] MONO%, CSF 20 % Normal 10-50 [facility] Comment on above: Order Comment: Speci men Type: CEREBROSPINAL FLUID Performed By: #### 3 4563-7, [id number], [id number] ####[facility]ATORYCLIA [id number] [address] [place] NEUT%, CSF 72 % High 0-3 [facility] Comment on above: Order Comment: Speci men Type: CEREBROSPINAL FLUID Performed By: #### 3 4563-7, [id number], [id number] ####[facility]ORYCLIA [id number] [address] CSF PATHOLOGIST INTERP (LAB REFLEX ORDER-NO BILL)on 06-02-2021 CSF STAFF REVIEW Negative Normal [facility] Comment on above: Order Comment: Speci men Type: CEREBROSPINAL FLUID Performed By: #### 3 4563-7, [id number], [id number] ####[facility]ORYCLIA [id number] [address] Pathologist name Reviewed by Amador Stevens MD [facility] Comment on above: Order Comment: Speci men Type: CEREBROSPINAL FLUID Performed By: #### 3 4563-7, [id number], [id number] ####[facility]ORYCLIA [id number] [address] Cell count panel (CSF)on Clarity (CSF) Clear Normal Clear [facility] Comment on above: Order Comment: Speci men Type: CEREBROSPINAL FLUID Performed By: #### 3 4563-7, [id number], [id number] ####[facility]ORYCLIA [id number] [address] Clarity (Unsp spec) Not Indicated Normal Clear [facility] Comment on above: Order Comment: Speci men Type: CEREBROSPINAL FLUID Performed By: #### 3 4563-7, [id number], [id number] ####[facility]ORYCLIA [id number] [address] Color (CSF) Colorless Normal Colorless [facility] Comment on above: Order Comment: Speci men Type: CEREBROSPINAL FLUID Performed By: #### 3 4563-7, [id number], [id number] ####[facility]ATORYCLIA [id number] [address] Color (Spun CSF) Not Indicated Normal Colorless [facility] Comment on above: Order Comment: Speci men Type: CEREBROSPINAL FLUID Performed By: #### 3 4563-7, [id number], [id number] ####[facility]ORYCLIA [id number] [address] CSF TUBE NUMBER Sterile Container Normal [facility] Comment on above: Order Comment: Speci men Type: CEREBROSPINAL FLUID Performed By: #### 3 4563-7, [id number], [id number] ####[facility]ORYCLIA [id number] [address] RBC Manual cnt (CSF) [#/Vol] 117 cells/uL High 0-5 [facility] Comment on above: Order Comment: Speci men Type: CEREBROSPINAL FLUID Performed By: #### 3 4563-7, [id number], [id number] ####[facility]ORYCLIA [id number] [address] WBC Manual cnt (CSF) [#/Vol] 1 cells/uL Normal 0-[address] [place] [address] Comment on above: Order Comment: Speci men Type: CEREBROSPINAL FLUID Performed By: #### 3 4563-7, [id number], [id number] ####[facility]ORYCLIA [id number] [address] Glucose CSF-mCncon 01-27-202 2 Glucose (CSF) [Mass/Vol] 82 mg/dL High 40-70 [facility] Comment on above: Order Comment: Speci men Type: CEREBROSPINAL FLUID Result Comment: Lumb ar CSF glucose values of healthy patients are approximately 60% of the plasma values and must always be compared with a concurrently measured plasma value for adequate clinical interpretation.References: 1. Glucose HK (GLUC3) [package insert V 12.0 [place]]. [employer], [place], [place]. September 2015. 2. Michelle Moore, Loki HGarfield (2015). Chapter 7: Glucose and Lactate. F. Irina rose al.(eds.), Cerebrospinal Fluid in Clinical Neurology. Bleckley: goodideazs. Performed By: #### 2 342-4 ####[facility]ATORYCLIA [id number] [address] HEPATIC FUNCTION PNLon 06-02 Albumin [Mass/Vol] 3.2 g/dL Low 3.9-4.9 [facility] Comment on above: Order Comment: Speci men Type: BLOOD SPECIMEN Performed By: #### [place], 23296-2 ####[facility]ATORYCLIA [id number] [address] ALP [Catalytic activity/Vol] 67 U/L Normal 38-113 [facility] Comment on above: Order Comment: Speci men Type: BLOOD SPECIMEN Performed By: #### [place] FP, 27970-5 ####[facility]ORYCLIA [id number] [address] ALT With P-5'-P [Catalytic activity/Vol] 16 U/L Normal 10-54 [facility] Comment on above: Order Comment: Speci men Type: BLOOD SPECIMEN Performed By: #### H FP, 45851-7 ####[facility]ATORYCLIA [id number] [address] AST With P-5'-P [Catalytic activity/Vol] 25 U/L Normal 14-40 [facility] Comment on above: Order Comment: Speci men Type: BLOOD SPECIMEN Performed By: #### [place], [address]-5 ####[facility]ORYCLIA [id number] [address] Bilirubin [Mass/Vol] 0.2 mg/dL Normal 0.2-1.3 [facility] Comment on above: Order Comment: Speci men Type: BLOOD SPECIMEN Performed By: #### [place] FP, ####[facility]ORYCLIA [id number] [address] Bilirubin.conjugated [Mass/Vol] mg/dL Normal <0.2 [facility] Comment on above: Order Comment: Speci men Type: BLOOD SPECIMEN Performed By: #### [place] FP, ####[facility]ORYCLIA [id number] [address] Protein [Mass/Vol] 5.8 g/dL Low 6.3-8.0 [facility] Comment on above: Order Comment: Speci men Type: BLOOD SPECIMEN Performed By: #### [place] FP, ####[facility]ORYCLIA [id number] [address] MRI BRAIN WO/W IVCONon 06-02 MRI BRAIN WO/W IVCON Normal [facility] Magnesium [Mass/Vol] 2.0 mg/dL Normal 1.7-2.3 [facility] Comment on above: Order Comment: Speci men Type: BLOOD SPECIMEN Performed By: #### 2 4321-2, 21058-0, 2777-1 ####[facility]ORYCLIA [id number] [address] NT-proBNP SerPl-mCncon 06-02 Natriuretic peptide.B prohormone N-Terminal [Mass/Vol] 296 pg/mL High <125 [facility] Comment on above: Order Comment: Speci men Type: BLOOD SPECIMEN Performed By: #### [place], [address]-8 ####[facility]ATORYCLIA [id number] [address] [place] POTASSIUM BLDon 06-02-2021 Potassium [Moles/Vol] 3.2 mmol/L Low 3.7-5.1 [facility] Comment on above: Order Comment: Speci men Type: BLOOD SPECIMEN Performed By: #### K 1 ####[facility]ORATORYCLIA [id number] [address] [place] Phosphate SerPl-mCncon 06-02 Phosphate [Mass/Vol] 2.1 mg/dL Low 2.7-4.8 [facility] Comment on above: Order Comment: Speci men Type: BLOOD SPECIMEN Performed By: #### 2 4321-2, 01119-7, 2777-1 ####[facility]ORATORYCLIA [id number] [address] OF [facility] Vancomycin random [Mass/Vol] on 06-02-2021 Vancomycin [Mass/Vol] 18.8 ug/mL Normal 10.0-20.0 [facility] Comment on above: Order Comment: Speci men Type: BLOOD SPECIMEN Result Comment: Refe rence ranges and high/low indicator flags are provided as general guidelines only. The treating physician must determine appropriate target levels/dosing based on the specific clinical situation. Performed By: #### 4 091-5 ####[facility]ORATORYCLIA [id number] [address] [place] ALLIED HEALTHon 06-01-2021 ALLIED HEALTH Normal [facility] ALLIED HEALTH Normal [facility] ALLIED HEALTH Normal [facility] ARTERIAL BLOOD GASESon 06-01 Base excess Calc (Bld) [Moles/Vol] 1 mmol/L Normal 0-2 [facility] Comment on above: Order Comment: Speci men Type: ARTERIAL BLOOD SPECIMEN Performed By: #### A LLBG ####[facility]ORATORYCLIA [id number] [address] OF [facility] Body temperature 97.52 [degF] Normal [facility] Comment on above: Order Comment: Speci men Type: ARTERIAL BLOOD SPECIMEN Performed By: #### A LLBG ####[facility]ORYCLIA [id number] [address] CALCIUM IONIZED, PH CORRECTED 1.13 mmol/L Normal 1.08-1.30 [facility] Comment on above: Order Comment: Speci men Type: ARTERIAL BLOOD SPECIMEN Performed By: #### A LLBG ####[facility]ORYCLIA [id number] [address] Calcium.ionized (BldV) [Mass/Vol] 1.12 mmol/L Normal 1.08-1.30 [facility] Comment on above: Order Comment: Speci men Type: ARTERIAL BLOOD SPECIMEN Performed By: #### A LLBG ####[facility]ORYCLIA [id number] [address] Carboxyhemoglobin (BldA) [Mass fraction] 1.6 % Normal 0.0-2.0 [facility] Comment on above: Order Comment: Speci men Type: ARTERIAL BLOOD SPECIMEN Result Comment: Carb oxyhemoglobin Reference Range for Smokers: 2.0-8.0% Performed By: #### A LLBG ####[facility]ORYCLIA [id number] [address] CO2 (Bld) [Partial pressure] 41 mm Hg Normal 36-46 [facility] Comment on above: Order Comment: Speci men Type: ARTERIAL BLOOD SPECIMEN Performed By: #### A LLBG ####[facility]ORYCLIA [id number] [address] CO2 [Moles/Vol] 23.0 mmol/L Normal 22-28 [facility] Comment on above: Order Comment: Speci men Type: ARTERIAL BLOOD SPECIMEN Performed By: #### A LLBG ####[facility]ORYCLIA [id number] [address] CO2 adjusted to patient's actual temperature (Bld) [Partial pressure] 40 mmHg Normal 36-46 [facility] Comment on above: Order Comment: Speci men Type: ARTERIAL BLOOD SPECIMEN Performed By: #### A LLBG ####[facility]ORYCLIA [id number] [address] FIO2 40 % Normal [facility] Comment on above: Order Comment: Speci men Type: ARTERIAL BLOOD SPECIMEN Performed By: #### A LLBG ####[facility]ORYCLIA [id number] [address] Glucose [Mass/Vol] 127 mg/dL High 60-105 [facility] Comment on above: Order Comment: Speci men Type: ARTERIAL BLOOD SPECIMEN Performed By: #### A LLBG ####[facility]ORYCLIA [id number] [address] HCO3 (Bld) [Moles/Vol] 25 mmol/L Normal 22-26 [facility] Comment on above: Order Comment: Speci men Type: ARTERIAL BLOOD SPECIMEN Performed By: #### A LLBG ####[facility]ORYCLIA [id number] [address] Hematocrit (Bld) [Volume fraction] 33.7 % Low 39.0-51.0 [facility] Comment on above: Order Comment: Speci men Type: ARTERIAL BLOOD SPECIMEN Performed By: #### A LLBG ####[facility]ORYCLIA [id number] [address] [place] Hemoglobin (Bld) [Mass/Vol] 10.9 g/dL Low 13.0-17.0 [facility] Comment on above: Order Comment: Speci men Type: ARTERIAL BLOOD SPECIMEN Performed By: #### A LLBG ####[facility]ORYCLIA [id number] [address] INHALED TIDAL VOLUME (ML) 500 Normal [facility] Comment on above: Order Comment: Speci men Type: ARTERIAL BLOOD SPECIMEN Performed By: #### A LLBG ####[facility]ORYCLIA [id number] [address] INVASIVE VENTILATOR MODE PRVC=Pressure Regulated Volume Control Normal [facility] Comment on above: Order Comment: Speci men Type: ARTERIAL BLOOD SPECIMEN Performed By: #### A LLBG ####[facility]ORYCLIA [id number] [address] Methemoglobin (Bld) [Mass fraction] % Normal 0.0-1.5 [facility] Comment on above: Order Comment: Speci men Type: ARTERIAL BLOOD SPECIMEN Performed By: #### A LLBG ####[facility]ORYCLIA [id number] [address] O2 THERAPY Ventilator Normal [facility] Comment on above: Order Comment: Speci men Type: ARTERIAL BLOOD SPECIMEN Performed By: #### A LLBG ####[facility]ORYCLIA [id number] [address] Oxygen (Bld) [Partial pressure] 64 mm Hg Low 85-95 [facility] Comment on above: Order Comment: Speci men Type: ARTERIAL BLOOD SPECIMEN Performed By: #### A LLBG ####[facility]ORYCLIA [id number] [address] Oxygen adjusted to patient's actual temperature (Bld) [Partial pressure] 61.8 mmHg Low 85-95 [facility] Comment on above: Order Comment: Speci men Type: ARTERIAL BLOOD SPECIMEN Performed By: #### A LLBG ####[facility]ORYCLIA [id number] [address] OXYGEN SATURATION, ARTERIAL 94 % Low 95-98 [facility] Comment on above: Order Comment: Speci men Type: ARTERIAL BLOOD SPECIMEN Performed By: #### A LLBG ####[facility]ORYCLIA [id number] [address] Oxyhemoglobin (BldA) [Mass fraction] 92 % Low 95-98 [facility] Comment on above: Order Comment: Speci men Type: ARTERIAL BLOOD SPECIMEN Performed By: #### A LLBG ####[facility]ORYCLIA [id number] [address] PEEP/CPAP 5 cmH2O Normal [facility] Comment on above: Order Comment: Speci men Type: ARTERIAL BLOOD SPECIMEN Performed By: #### A LLBG ####[facility]ORYCLIA [id number] [address] [place] pH (Bld) 7.40 [pH] Normal 7.35-7.45 [facility] Comment on above: Order Comment: Speci men Type: ARTERIAL BLOOD SPECIMEN Performed By: #### A LLBG ####[facility]ORYCLIA [id number] [address] pH adjusted to patient's actual temperature (Bld) 7.41 Normal 7.35-7.45 [facility] Comment on above: Order Comment: Speci men Type: ARTERIAL BLOOD SPECIMEN Performed By: #### A LLBG ####[facility]ORYCLIA [id number] [address] Potassium [Moles/Vol] 3.1 mmol/L Low 3.5-5.0 [facility] Comment on above: Order Comment: Speci men Type: ARTERIAL BLOOD SPECIMEN Performed By: #### A LLBG ####[facility]ORYCLIA [id number] [address] SET VENTILATOR RESPIRATORY RATE (BPM) 18 BPM Normal [facility] Comment on above: Order Comment: Speci men Type: ARTERIAL BLOOD SPECIMEN Performed By: #### A LLBG ####[facility]ORYCLIA [id number] [address] [place] Sodium [Moles/Vol] 141 mmol/L Normal 136-144 [facility] Comment on above: Order Comment: Speci men Type: ARTERIAL BLOOD SPECIMEN Performed By: #### A LLBG ####[facility]ORYCLIA [id number] [address] [place] BASE DEFICIT, ARTERIAL -1.0 mmol/L Normal -2-0 [facility] Comment on above: Order Comment: Speci men Type: ARTERIAL BLOOD SPECIMEN Performed By: #### A LLBG ####[facility]ATORYCLIA [id number] [address] Body temperature 98.24 [degF] Normal [facility] Comment on above: Order Comment: Speci men Type: ARTERIAL BLOOD SPECIMEN Performed By: #### A LLBG ####[facility]ATORYCLIA [id number] [address] CALCIUM IONIZED, PH CORRECTED 1.08 mmol/L Normal 1.08-1.30 [facility] Comment on above: Order Comment: Speci men Type: ARTERIAL BLOOD SPECIMEN Performed By: #### A LLBG ####[facility]ATORYCLIA [id number] [address] Calcium.ionized (BldV) [Mass/Vol] 1.15 mmol/L Normal 1.08-1.30 [facility] Comment on above: Order Comment: Speci men Type: ARTERIAL BLOOD SPECIMEN Performed By: #### A LLBG ####[facility]ATORYCLIA [id number] [address] Carboxyhemoglobin (BldA) [Mass fraction] 1.4 % Normal 0.0-2.0 [facility] Comment on above: Order Comment: Speci men Type: ARTERIAL BLOOD SPECIMEN Result Comment: Carb oxyhemoglobin Reference Range for Smokers: 2.0-8.0% Performed By: #### A LLBG ####[facility]ATORYCLIA [id number] [address] CO2 (Bld) [Partial pressure] 59 mm Hg High 36-46 [facility] Comment on above: Order Comment: Speci men Type: ARTERIAL BLOOD SPECIMEN Performed By: #### A LLBG ####[facility]ATORYCLIA [id number] [address] CO2 [Moles/Vol] 24.5 mmol/L Normal 22-28 [facility] Comment on above: Order Comment: Speci men Type: ARTERIAL BLOOD SPECIMEN Performed By: #### A LLBG ####[facility]ORYCLIA [id number] [address] CO2 adjusted to patient's actual temperature (Bld) [Partial pressure] 58 mmHg High 36-46 [facility] Comment on above: Order Comment: Speci men Type: ARTERIAL BLOOD SPECIMEN Performed By: #### A LLBG ####[facility]ORYCLIA [id number] [address] FIO2 40 % Normal [facility] Comment on above: Order Comment: Speci men Type: ARTERIAL BLOOD SPECIMEN Performed By: #### A LLBG ####[facility]ORYCLIA [id number] [address] Glucose [Mass/Vol] 128 mg/dL High 60-105 [facility] Comment on above: Order Comment: Speci men Type: ARTERIAL BLOOD SPECIMEN Performed By: #### A LLBG ####[facility]ORYCLIA [id number] [address] HCO3 (Bld) [Moles/Vol] 26 mmol/L Normal 22-26 [facility] Comment on above: Order Comment: Speci men Type: ARTERIAL BLOOD SPECIMEN Performed By: #### A LLBG ####[facility]ORYCLIA [id number] [address] Hematocrit (Bld) [Volume fraction] 35.6 % Low 39.0-51.0 [facility] Comment on above: Order Comment: Speci men Type: ARTERIAL BLOOD SPECIMEN Performed By: #### A LLBG ####[facility]ORYCLIA [id number] [address] Hemoglobin (Bld) [Mass/Vol] 11.5 g/dL Low 13.0-17.0 [facility] Comment on above: Order Comment: Speci men Type: ARTERIAL BLOOD SPECIMEN Performed By: #### A LLBG ####[facility]ORYCLIA [id number] [address] INHALED TIDAL VOLUME (ML) 500 Normal [facility] Comment on above: Order Comment: Speci men Type: ARTERIAL BLOOD SPECIMEN Performed By: #### A LLBG ####[facility]ORYCLIA [id number] [address] INVASIVE VENTILATOR MODE PRVC=Pressure Regulated Volume Control Normal [facility] Comment on above: Order Comment: Speci men Type: ARTERIAL BLOOD SPECIMEN Performed By: #### A LLBG ####[facility]ORYCLIA [id number] [address] [place] Methemoglobin (Bld) [Mass fraction] % Normal 0.0-1.5 [facility] Comment on above: Order Comment: Speci men Type: ARTERIAL BLOOD SPECIMEN Performed By: #### A LLBG ####[facility]ORYCLIA [id number] [address] O2 THERAPY Ventilator Normal [facility] Comment on above: Order Comment: Speci men Type: ARTERIAL BLOOD SPECIMEN Performed By: #### A LLBG ####[facility]ORYCLIA [id number] [address] [place] Oxygen (Bld) [Partial pressure] 88 mm Hg Normal 85-95 [facility] Comment on above: Order Comment: Speci men Type: ARTERIAL BLOOD SPECIMEN Performed By: #### A LLBG ####[facility]ORYCLIA [id number] [address] [place] Oxygen adjusted to patient's actual temperature (Bld) [Partial pressure] 86.5 mmHg Normal 85-95 [facility] Comment on above: Order Comment: Speci men Type: ARTERIAL BLOOD SPECIMEN Performed By: #### A LLBG ####[facility]ORYCLIA [id number] [address] [place] OXYGEN SATURATION, ARTERIAL 95 % Normal 95-98 [facility] Comment on above: Order Comment: Speci men Type: ARTERIAL BLOOD SPECIMEN Performed By: #### A LLBG ####[facility]ORYCLIA [id number] [address] Oxyhemoglobin (BldA) [Mass fraction] 93 % Low 95-98 [facility] Comment on above: Order Comment: Speci men Type: ARTERIAL BLOOD SPECIMEN Performed By: #### A LLBG ####[facility]ORYCLIA [id number] [address] PEEP/CPAP 5 cmH2O Normal [facility] Comment on above: Order Comment: Speci men Type: ARTERIAL BLOOD SPECIMEN Performed By: #### A LLBG ####[facility]ORYCLIA [id number] [address] pH (Bld) 7.27 [pH] Low 7.35-7.45 [facility] Comment on above: Order Comment: Speci men Type: ARTERIAL BLOOD SPECIMEN Performed By: #### A LLBG ####[facility]ORYCLIA [id number] [address] pH adjusted to patient's actual temperature (Bld) 7.28 Low 7.35-7.45 [facility] Comment on above: Order Comment: Speci men Type: ARTERIAL BLOOD SPECIMEN Performed By: #### A LLBG ####[facility]ORYCLIA [id number] [address] Potassium [Moles/Vol] 3.3 mmol/L Low 3.5-5.0 [facility] Comment on above: Order Comment: Speci men Type: ARTERIAL BLOOD SPECIMEN Performed By: #### A LLBG ####[facility]ORYCLIA [id number] [address] SET VENTILATOR RESPIRATORY RATE (BPM) 14 BPM Normal [facility] Comment on above: Order Comment: Speci men Type: ARTERIAL BLOOD SPECIMEN Performed By: #### A LLBG ####[facility]ORYCLIA [id number] [address] Sodium [Moles/Vol] 141 mmol/L Normal 136-144 [facility] Comment on above: Order Comment: Speci men Type: ARTERIAL BLOOD SPECIMEN Performed By: #### A LLBG ####[facility]ORATORYCLIA [id number] [address] Bacteria CSF Culton 06-01-19 Bacteria identified Cx Nom (CSF) CULTURE, CSF: No growth 14 days GRAM STAIN: No organisms seen Rare Polymorphonuclear leukocytes Moderate Red Blood Cells Gram stain performed on cytospun specimen. Normal [facility] Comment on above: Performed By: #### 6 06-4 ####[facility]ATORYCLIA [id number] [address] Bacteria Spec Resp Culton Bacteria identified Respiratory culture Nom (Unsp spec) CULTURE, RESPIRATORY: No growth 2 days GRAM STAIN: No organisms seen No Polymorphonuclear Leukocytes Normal [facility] Comment on above: Performed By: #### 3 2355-0 ####[facility]ATORYCLIA [id number] [address] OF [facility] Basic metabolic 2000 panelon 06-01-2021 Anion gap [Moles/Vol] 8 mmol/L Low 9-18 [facility] Comment on above: Order Comment: Speci men Type: BLOOD SPECIMEN Performed By: #### 2 4321-2, , 2776-05 ####[facility]ATORYCLIA [id number] [address] STATES OF [facility] Calcium [Mass/Vol] 7.8 mg/dL Low 8.5-10.2 [facility] Comment on above: Order Comment: Speci men Type: BLOOD SPECIMEN Performed By: #### 2 4321-2, , 2776-05 ####[facility]ATORYCLIA [id number] [address] Chloride [Moles/Vol] 109 mmol/L High 97-105 [facility] Comment on above: Order Comment: Speci men Type: BLOOD SPECIMEN Performed By: #### 2 4321-2, , 2776-05 ####[facility]ATORYCLIA [id number] [place] [address] [place] [facility] CO2 [Moles/Vol] 26 mmol/L Normal 22-30 [facility] Comment on above: Order Comment: Speci men Type: BLOOD SPECIMEN Performed By: #### 2 4321-2, , 2776-05 ####[facility]ORATORYCLIA [id number] [place] [address] [place] Creatinine [Mass/Vol] 0.82 mg/dL Normal 0.73-1.22 [facility] Comment on above: Order Comment: Speci men Type: BLOOD SPECIMEN Performed By: #### 2 4321-2, , 2776-05 ####[facility]ATORYCLIA [id number] [address] [place] GFR/1.73 sq M.predicted MDRD (S/P/Bld) [Vol rate/Area] mL/min/{1.73_m2} Normal [facility] Comment on above: Order [...] Performed By: #### 2 4321-2, , 2776-05 ####[facility]ORATORYCLIA [id number] [place] [id number] [place] Glucose [Mass/Vol] 105 mg/dL High 74-99 [facility] Comment on above: Order Comment: Speci men Type: BLOOD SPECIMEN Result Comment: The [place] [employer] (ADA) provides guidance for cutoff [...] Standards of Medical Care in Diabetes 2016, [place] [employer]. Diabetes Care. 2016.39(Suppl 1). Performed By: #### 2 4321-2, , 2776-05 ####[facility]ATORYCLIA [id number] [address] Potassium [Moles/Vol] 3.8 mmol/L Normal 3.7-5.1 [facility] Comment on above: Order Comment: Speci men Type: BLOOD SPECIMEN Performed By: #### 2 4320-2, , 2776-05 ####[facility]ATORYCLIA [id number] [address] Sodium [Moles/Vol] 143 mmol/L Normal 136-144 [facility] Comment on above: Order Comment: Speci men Type: BLOOD SPECIMEN Performed By: #### 2 1-2, , 2776-05 ####[facility]ORYCLIA [id number] [address] Urea nitrogen [Mass/Vol] 15 mg/dL Normal 9-24 [facility] Comment on above: Order Comment: Speci men Type: BLOOD SPECIMEN Performed By: #### 2 1-2, , 2776-05 ####[facility]ORYCLIA [id number] [address] CBC panel Auto (Bld)on 06-01 Erythrocyte distribution width (RBC) [Ratio] 15.4 % High 11.5-15.0 [facility] Comment on above: Order Comment: Speci men Type: BLOOD SPECIMEN Performed By: #### 5 8410-2 ####[facility]ATORYCLIA [id number] [address] Hematocrit (Bld) [Volume fraction] 38.4 % Low 39.0-51.0 [facility] Comment on above: Order Comment: Speci men Type: BLOOD SPECIMEN Performed By: #### 5 8410-2 ####[facility]ORYCLIA [id number] [address] Hemoglobin (Bld) [Mass/Vol] 11.1 g/dL Low 13.0-17.0 [facility] Comment on above: Order Comment: Speci men Type: BLOOD SPECIMEN Performed By: #### 5 8410-2 ####[facility]ORYCLIA [id number] [address] MCH (RBC) [Entitic mass] 26.9 pg Normal 26.0-34.0 [facility] Comment on above: Order Comment: Speci men Type: BLOOD SPECIMEN Performed By: #### 5 8410-2 ####[facility]ORYCLIA [id number] [address] MCHC (RBC) [Mass/Vol] 28.9 g/dL Low 30.5-36.0 [facility] Comment on above: Order Comment: Speci men Type: BLOOD SPECIMEN Performed By: #### 5 8410-2 ####[facility]ATORYCLIA [id number] [address] MCV (RBC) [Entitic vol] 93.2 fL Normal 80.0-100.0 [facility] Comment on above: Order Comment: Speci men Type: BLOOD SPECIMEN Performed By: #### 5 8410-2 ####[facility]ATORYCLIA [id number] [address] Nucleated RBC (Bld) [#/Vol] 10*3/uL Normal <0.01 [facility] Comment on above: Order Comment: Speci men Type: BLOOD SPECIMEN Performed By: #### 5 8410-2 ####[facility]ATORYCLIA [id number] [address] OF [facility] Platelet mean volume (Bld) [Entitic vol] 10.2 fL Normal 9.0-12.7 [facility] Comment on above: Order Comment: Speci men Type: BLOOD SPECIMEN Performed By: #### 5 8410-2 ####[facility]ATORYCLIA [id number] [address] [place] Platelets (Bld) [#/Vol] 231 10*3/uL Normal 150-400 [facility] Comment on above: Order Comment: Speci men Type: BLOOD SPECIMEN Performed By: #### 5 8410-2 ####[facility]ATORYCLIA [id number] [address] OF [facility] RBC (Bld) [#/Vol] 4.12 10*6/uL Low 4.20-6.00 [facility] Comment on above: Order Comment: Speci men Type: BLOOD SPECIMEN Performed By: #### 5 8410-2 ####[facility]ATORYCLIA [id number] [address] [place] [facility] WBC (Bld) [#/Vol] 10.99 10*3/uL Normal 3.70-11.00 [facility] Comment on above: Order Comment: Speci men Type: BLOOD SPECIMEN Performed By: #### 5 8410-2 ####[facility]ATORYCLIA [id number] [address] OF [facility] CONSULT PROGon 06-01-2021 CONSULT PROG Normal [facility] CSF MANUAL DIFFon 06-01-2021 DIF TTL, CSF 100 cells counted Normal [facility] Comment on above: Order Comment: Speci men Type: CEREBROSPINAL FLUID Performed By: #### 3 4563-7, [id number] ####[facility]ORATORYCLIA [id number] [address] [place] LYMPH%, CSF 11 % Low 50-90 [facility] Comment on above: Order Comment: Speci men Type: CEREBROSPINAL FLUID Performed By: #### 3 4563-7, [id number] ####[facility]ORYCLIA [id number] [address] MONO%, CSF 10 % Normal 10-50 [facility] Comment on above: Order Comment: Speci men Type: CEREBROSPINAL FLUID Performed By: #### 3 4563-7, [id number] ####[facility]ORYCLIA [id number] [address] NEUT%, CSF 79 % High 0-3 [facility] Comment on above: Order Comment: Speci men Type: CEREBROSPINAL FLUID Performed By: #### 3 4563-7, [id number] ####[facility] LABORATORYCLIA [id number] [address] BRAIN WO IVCONon 06-01-19 CT BRAIN WO IVCON Normal [facility] Cell count panel (CSF)on Clarity (CSF) Clear Normal Clear [facility] Comment on above: Order Comment: Speci men Type: CEREBROSPINAL FLUID Performed By: #### 3 4563-7, [id number] ####[facility] LABORATORYCLIA [id number] [address] Clarity (Unsp spec) Not Indicated Normal Clear [facility] Comment on above: Order Comment: Speci men Type: CEREBROSPINAL FLUID Performed By: #### 3 4563-7, [id number] ####[facility]ORATORYCLIA [id number] [address] Color (CSF) Colorless Normal Colorless [facility] Comment on above: Order Comment: Speci men Type: CEREBROSPINAL FLUID Performed By: #### 3 4563-7, [id number] ####[facility] LABORATORYCLIA [id number] [address] Color (Spun CSF) Not Indicated Normal Colorless [facility] Comment on above: Order Comment: Speci men Type: CEREBROSPINAL FLUID Performed By: #### 3 4563-7, [id number] ####[facility] LABORATORYCLIA [id number] [address] CSF TUBE NUMBER Sterile Container Normal [facility] Comment on above: Order Comment: Speci men Type: CEREBROSPINAL FLUID Performed By: #### 3 4563-7, [id number] ####[facility] LABORATORYCLIA [id number] [address] RBC Manual cnt (CSF) [#/Vol] 171 cells/uL High 0-5 [facility] Comment on above: Order Comment: Speci men Type: CEREBROSPINAL FLUID Performed By: #### 3 4563-7, [id number] ####[facility] LABORATORYCLIA [id number] [address] WBC Manual cnt (CSF) [#/Vol] 5 cells/uL Normal 0-5 [facility] Comment on above: Order Comment: Speci men Type: CEREBROSPINAL FLUID Performed By: #### 3 4563-7, [id number] ####[facility] LABORATORYCLIA [id number] [address] FUNGAL CULTUREon 06-01-2021 FUNGAL CULTURE CULTURE, FUNGAL: No Fungus isolated after 28 days [facility] Comment on above: Performed By: #### F CUL ####[facility] LABORATORYCLIA [id number] [address] [place] Glucose CSF-mCncon 2 Glucose (CSF) [Mass/Vol] 78 mg/dL High 40-70 [facility] Comment on above: Order Comment: Speci men Type: CEREBROSPINAL FLUID Result Comment: Lumb ar CSF glucose values of healthy patients are approximately 60% of the plasma values and must always be compared with a concurrently measured plasma value for adequate clinical interpretation.References: 1. Glucose HK (GLUC3) [package insert V 12.0 Kazakh]. [employer], [place], [place]. September 2015. 2. Michelle Moore, Loki H. (2015). Chapter 7: Glucose and Lactate. F. Irina rose al.(eds.), Cerebrospinal Fluid in Clinical Neurology. Bleckley: goodideazs. Performed By: #### 2 342-4, 2880-3 ####[facility] LABORATORYCLIA [id number] [address] HERPES SIMPLEX CSFon 022 HERPES SIMPLEX CSF HSV PCR SPEC SOURCE: Cerebrospinal Fluid HSV-1: Negative for Herpes Simplex Virus Type 1 by PCR HSV-2: Negative for Herpes Simplex Virus Type 2 by PCR Normal [facility] Comment on above: Performed By: #### H [facility] ####[facility] REFERENCE LABCLIA [id number] [id number] [address] [facility] [place] Lactate (Bld) [Moles/Vol]on 06-01-2021 Lactate [Moles/Vol] 0.5 mmol/L Normal 0.5-2.2 [facility] Comment on above: Order Comment: Speci men Type: BLOOD SPECIMEN Performed By: #### 3 2693-4 ####[facility] LABORATORYCLIA [id number] [address] MENINGITIS ENCEPHALITIS BIOF IREon 06-01-2021 MENINGITIS ENCEPHALITIS BIOFIRE Negative Normal [facility] Comment on above: Order Comment: Speci men Type: CEREBROSPINAL FLUID Performed By: #### M GEBF ####[facility] [id number], [place] [address] Magnesium SerPl-mCncon 06-01 Magnesium [Mass/Vol] 2.2 mg/dL Normal 1.7-2.3 [facility] Comment on above: Order Comment: Speci men Type: BLOOD SPECIMEN Performed By: #### 2 4321-2, 33823-9, 2777-1 ####[facility] LABORATORYCLIA [id number] [address] [place] Microorganism Spec Culton Microorganism identified Cx Nom (Unsp spec) CULTURE, AFB: No Acid Fast Bacilli isolated after 42 days AFB STAIN: No acid fast bacilli seen by flurochrome stain Normal [facility] Comment on above: Performed By: #### 1 1475-1 ####[facility] LABORATORYCLIA [id number] [address] PROCALCITONIN (LAB)on 2021 Procalcitonin [Mass/Vol] 0.08 ng/mL Normal <0.09 [facility] Comment on above: Order Comment: Speci men Type: BLOOD SPECIMEN Result Comment: For a guided interpretation of test results, please visit the [facility] in Procalcitonin Calculator, [email or web address]. Performed By: #### P ROCAL ####[facility] LABORATORYCLIA [id number] [address] OF [facility] Phosphate SerPl-ncon 06-01 Phosphate [Mass/Vol] 3.5 mg/dL Normal 2.7-4.8 [facility] Comment on above: Order Comment: Speci men Type: BLOOD SPECIMEN Performed By: #### 2 4321-2, 01337-4, 2777-1 ####[facility] LABORATORYCLIA [id number] [address] Prot CSF-ncon 06-01-2021 Protein (CSF) [Mass/Vol] 52 mg/dL High 15-45 [facility] Comment on above: Order Comment: Speci men Type: CEREBROSPINAL FLUID Performed By: #### 2 342-4, 2880-3 ####[facility] LABORATORYCLIA [id number] [address] OF [facility] Vancomycin random [Mass/Vol] on 06-01-2021 Vancomycin [Mass/Vol] 14.6 ug/mL Normal 10.0-20.0 [facility] Comment on above: Order Comment: Speci men Type: BLOOD SPECIMEN Result Comment: Refe rence ranges and high/low indicator flags are provided as general guidelines only. The treating physician must determine appropriate target levels/dosing based on the specific clinical situation. Performed By: #### 4 091-5 ####[facility] LABORATORYCLIA [id number] [address] XR CHEST 1V FRONTALon 2021 XR CHEST 1V FRONTAL Normal [facility] XR CHEST 1V FRONTAL Normal [facility] XR NECK SOFT TISSUE 2V AP/LA Ton 06-01-2021 XR NECK SOFT TISSUE 2V AP/LAT Normal [facility] XR SKULL 2V AP/LATon 022 XR SKULL 2V AP/LAT Normal [facility] ALLIED HEALTHon 05-31-2021 ALLIED HEALTH HNO ID: [id number] Author: Christina Lynne, RT(R) Service: Radiology Author Type: Technologist Type: Allied Health Filed: 05/31/2021 5:48 PM Note Text: MRI tomorrow per RN. Normal [facility] ALLIED HEALTH Normal [facility] ALLIED HEALTH Normal [facility] ALLIED HEALTH Normal [facility] ANES POSTPROC EVALon 022 ANES POSTPROC EVAL Normal [facility] ANES PRE-OPon 05-31-2021 ANES PRE-OP Normal [facility] BRIEF OP NOTon 05-31-2021 BRIEF OP NOT Normal [facility] Bacteria Bld Culton 05-31-19 22 Bacteria identified Cx Nom (Bld) CULTURE, BLOOD: No growth 5 days Normal [facility] Comment on above: Performed By: #### 6 00-7 ####[facility] LABORATORYCLIA [id number] [address] [place] Bacteria CSF Culton 05-31-19 22 Bacteria identified Cx Nom (CSF) CULTURE, CSF: No growth 14 days GRAM STAIN: No organisms seen Rare Polymorphonuclear leukocytes Rare Red Blood Cells Gram stain performed on cytospun specimen. Normal [facility] Comment on above: Performed By: #### 6 06-4 ####[facility] LABORATORYCLIA [id number] [address] [place] Basic metabolic 2000 panelon 05-31-2021 Anion gap [Moles/Vol] 9 mmol/L Normal 9-18 [facility] Comment on above: Order Comment: Speci men Type: BLOOD SPECIMEN Performed By: #### 2 777-1, 18131-7, 63899-0 ####[facility] LABORATORYCLIA [id number] [place], [place] [address] [place] [address] [place] Calcium [Mass/Vol] 8.2 mg/dL Low 8.5-10.2 [facility] Comment on above: Order Comment: Speci men Type: BLOOD SPECIMEN Performed By: #### 2 777-1, 46803-3, ####[facility] LABORATORYCLIA [id number] [address] [place] Chloride [Moles/Vol] 110 mmol/L High 97-105 [facility] Comment on above: Order Comment: Speci men Type: BLOOD SPECIMEN Performed By: #### 2 777-1, 37556-4, ####[facility] LABORATORYCLIA [id number] [address] OF [facility] CO2 [Moles/Vol] 27 mmol/L Normal 22-30 [facility] Comment on above: Order Comment: Speci men Type: BLOOD SPECIMEN Performed By: #### 2 777-1, 17394-4, ####[facility] LABORATORYCLIA [id number] [address] STATES [facility] Creatinine [Mass/Vol] 0.85 mg/dL Normal 0.73-1.22 [facility] Comment on above: Order Comment: Speci men Type: BLOOD SPECIMEN Performed By: #### 2 777-1, , ####[facility] LABORATORYCLIA [id number] [address] [place] GFR/1.73 sq M.predicted MDRD (S/P/Bld) [Vol rate/Area] mL/min/{1.73_m2} Normal [facility] Comment on above: Order [...] GFR. Performed By: #### 2 777-1, , ####[facility] LABORATORYCLIA [id number] [place] [address] [place] Glucose [Mass/Vol] 111 mg/dL High 74-99 [facility] Comment on above: Order Comment: Speci men Type: BLOOD SPECIMEN Result Comment: The [place] Diabetes Association (ADA) provides guidance for cutoff [...] Standards of Medical Care in Diabetes 2016, [place] Diabetes Association. Diabetes Care. 2016.39(Suppl 1). Performed By: #### 2 777-1, , ####[facility]REM[facility]CLIA [id number] [place] [address] [place] Potassium [Moles/Vol] 3.7 mmol/L Normal 3.7-5.1 [facility] Comment on above: Order Comment: Speci men Type: BLOOD SPECIMEN Performed By: #### 2 777-1, , ####[facility] LABORATORYCLIA [id number] [place] [address] [place] Sodium [Moles/Vol] 146 mmol/L High 136-144 [facility] Comment on above: Order Comment: Speci men Type: BLOOD SPECIMEN Performed By: #### 2 777-1, , ####[facility] LABORATORYCLIA [id number] [address] [place] Urea nitrogen [Mass/Vol] 16 mg/dL Normal 9-24 [facility] Comment on above: Order Comment: Speci men Type: BLOOD SPECIMEN Performed By: #### 2 777-1, 69455-5, 44412-5 ####[facility] LABORATORYCLIA [id number] [address] [place] CASE MGT INIT ASSESon 2021 CASE MGT INIT ASSES Normal [facility] CBC W Auto Differential pane l (Bld)on 05-31-2021 Basophils (Bld) [#/Vol] 0.04 10*3/uL Normal <0.11 [facility] Comment on above: Order Comment: Speci men Type: BLOOD SPECIMEN Performed By: #### 5 7021-8 ####[facility] LABORATORYCLIA [id number] [address] STATES OF [facility] Basophils/100 WBC (Bld) 0.5 % Normal [facility] Comment on above: Order Comment: Speci men Type: BLOOD SPECIMEN Performed By: #### 5 7021-8 ####[facility] LABORATORYCLIA [id number] [address] Differential cell count method Nom (Bld) Auto Normal [facility] Comment on above: Order Comment: Speci men Type: BLOOD SPECIMEN Performed By: #### 5 7021-8 ####[facility]ORATORYCLIA [id number] [place] [address] [place] Eosinophils (Bld) [#/Vol] 0.27 10*3/uL Normal <0.46 [facility] Comment on above: Order Comment: Speci men Type: BLOOD SPECIMEN Performed By: #### 5 7021-8 ####[facility] LABORATORYCLIA [id number] [address] [place] Eosinophils/100 WBC (Bld) 3.3 % Normal [facility] Comment on above: Order Comment: Speci men Type: BLOOD SPECIMEN Performed By: #### 5 7021-8 ####[facility] LABORATORYCLIA [id number] [address] Erythrocyte distribution width (RBC) [Ratio] 15.4 % High 11.5-15.0 [facility] Comment on above: Order Comment: Speci men Type: BLOOD SPECIMEN Performed By: #### 5 7021-8 ####[facility]ORATORYCLIA [id number] [address] Hematocrit (Bld) [Volume fraction] 37.9 % Low 39.0-51.0 [facility] Comment on above: Order Comment: Speci men Type: BLOOD SPECIMEN Performed By: #### 5 7021-8 ####[facility] LABORATORYCLIA [id number] [address] Hemoglobin (Bld) [Mass/Vol] 11.5 g/dL Low 13.0-17.0 [facility] Comment on above: Order Comment: Speci men Type: BLOOD SPECIMEN Performed By: #### 5 7021-8 ####[facility] LABORATORYCLIA [id number] [address] IMMATURE GRAN % 0.4 % Normal [facility] Comment on above: Order Comment: Speci men Type: BLOOD SPECIMEN Performed By: #### 5 7021-8 ####[facility]ORATORYCLIA [id number] [address] IMMATURE GRAN ABS 0.03 k/uL Normal <0.10 [facility] Comment on above: Order Comment: Speci men Type: BLOOD SPECIMEN Performed By: #### 5 7021-8 ####[facility]ORATORYCLIA [id number] [address] Lymphocytes (Bld) [#/Vol] 1.90 10*3/uL Normal 1.00-4.00 [facility] Comment on above: Order Comment: Speci men Type: BLOOD SPECIMEN Performed By: #### 5 7021-8 ####[facility] LABORATORYCLIA [id number] [address] Lymphocytes/100 WBC (Bld) 23.0 % Normal [facility] Comment on above: Order Comment: Speci men Type: BLOOD SPECIMEN Performed By: #### 5 7021-8 ####[facility] LABORATORYCLIA [id number] [address] MCH (RBC) [Entitic mass] 28.0 pg Normal 26.0-34.0 [facility] Comment on above: Order Comment: Speci men Type: BLOOD SPECIMEN Performed By: #### 5 7021-8 ####[facility] LABORATORYCLIA [id number] [address] MCHC (RBC) [Mass/Vol] 30.3 g/dL Low 30.5-36.0 [facility] Comment on above: Order Comment: Speci men Type: BLOOD SPECIMEN Performed By: #### 5 7021-8 ####[facility] LABORATORYCLIA [id number] [address] MCV (RBC) [Entitic vol] 92.4 fL Normal 80.0-100.0 [facility] Comment on above: Order Comment: Speci men Type: BLOOD SPECIMEN Performed By: #### 5 7021-8 ####[facility] LABORATORYCLIA [id number] [address] Monocytes (Bld) [#/Vol] 0.60 10*3/uL Normal <0.87 [facility] Comment on above: Order Comment: Speci men Type: BLOOD SPECIMEN Performed By: #### 5 7021-8 ####[facility] LABORATORYCLIA [id number] [address] Monocytes/100 WBC (Bld) 7.3 % Normal [facility] Comment on above: Order Comment: Speci men Type: BLOOD SPECIMEN Performed By: #### 5 7021-8 ####[facility] LABORATORYCLIA [id number] [address] Neutrophils (Bld) [#/Vol] 5.41 10*3/uL Normal 1.45-7.50 [facility] Comment on above: Order Comment: Speci men Type: BLOOD SPECIMEN Performed By: #### 5 7021-8 ####[facility] LABORATORYCLIA [id number] [address] Neutrophils/100 WBC (Bld) 65.5 % Normal [facility] Comment on above: Order Comment: Speci men Type: BLOOD SPECIMEN Performed By: #### 5 7021-8 ####[facility] LABORATORYCLIA [id number] [address] Nucleated RBC (Bld) [#/Vol] 10*3/uL Normal <0.01 [facility] Comment on above: Order Comment: Speci men Type: BLOOD SPECIMEN Performed By: #### 5 7021-8 ####[facility] LABORATORYCLIA [id number] [address] Nucleated RBC/100 WBC (Bld) [Ratio] 0.0 /100 WBC Normal 0.0 [facility] Comment on above: Order Comment: Speci men Type: BLOOD SPECIMEN Performed By: #### 5 7021-8 ####[facility] LABORATORYCLIA [id number] [address] Platelet mean volume (Bld) [Entitic vol] 9.8 fL Normal 9.0-12.7 [facility] Comment on above: Order Comment: Speci men Type: BLOOD SPECIMEN Performed By: #### 5 7021-8 ####[facility] LABORATORYCLIA [id number] [address] Platelets (Bld) [#/Vol] 251 10*3/uL Normal 150-400 [facility] Comment on above: Order Comment: Speci men Type: BLOOD SPECIMEN Performed By: #### 5 7021-8 ####[facility]ORATORYCLIA [id number] [address] RBC (Bld) [#/Vol] 4.10 10*6/uL Low 4.20-6.00 [facility] Comment on above: Order Comment: Speci men Type: BLOOD SPECIMEN Performed By: #### 5 7021-8 ####[facility] LABORATORYCLIA [id number] [address] WBC (Bld) [#/Vol] 8.25 10*3/uL Normal 3.70-11.00 [facility] Comment on above: Order Comment: Speci men Type: BLOOD SPECIMEN Performed By: #### 5 7021-8 ####[facility] LABORATORYCLIA [id number] [address] CONSULTon 05-31-2021 CONSULT Normal [facility] CONSULT Normal [facility] CONSULT Normal [facility] CT BRAIN WO IVCONon 05-31-19 CT BRAIN WO IVCON Normal [facility] CT BRAIN WO IVCON Normal [facility] CT CHEST WO IVCONon 05-31-19 CT CHEST WO IVCON Normal [facility] Cortis SerPl-mCncon 05-31-19 Cortisol [Mass/Vol] 31.0 ug/dL High AM: 5.3-22.5, PM: 3.4-16.8 [facility] Comment on above: Order Comment: Speci men Type: BLOOD SPECIMEN Result Comment: Prov ided reference range is from 6-10 AM sample collection time.Cortisol Reference Range: 6-10 AM = 4.8-19.5 ug/dL, 4-8 PM = 2.5-11.9 ug/dL Performed By: #### 2 143-6, 3016-3 ####[facility] LABORATORYCLIA [id number] [address] Cryptoc Ag Spec Ql LAon 05-08 Cryptococcus sp Ag LA Ql (Unsp spec) Negative Normal [facility] Comment on above: Performed By: #### 4 3228-6 ####[facility] LABORATORYCLIA [id number] [address] HISTORY PHYSICALon 2 HISTORY PHYSICAL Normal [facility] Magnesium SerPl-mCncon 05-31 Magnesium [Mass/Vol] 2.2 mg/dL Normal 1.7-2.3 [facility] Comment on above: Order Comment: Speci men Type: BLOOD SPECIMEN Performed By: #### 2 777-1, 76202-6, 80787-0 ####[facility] LABORATORYCLIA [id number] [address] NURSING PROGon 05-31-2021 NURSING PROG Normal [facility] NUTRITIONon 05-31-2021 NUTRITION Normal [facility] OPERATIVE NOon 05-31-2021 OPERATIVE NO Normal [facility] Phosphate SerPl-mCncon 05-31 Phosphate [Mass/Vol] 3.3 mg/dL Normal 2.7-4.8 [facility] Comment on above: Order Comment: Speci men Type: BLOOD SPECIMEN Performed By: #### 2 777-1, 03581-5, ####[facility] LABORATORYCLIA [id number] [address] STAPH AUREUS PCRon 2 S. aureus and MRSA panel MEGAN+probe (Nose) Normal Negative [facility] Comment on above: Order Comment: Speci men Type: SWAB OF INTERNAL NOSE Result Comment: Nega tive for Staphylococcus aureus by PCR.Negative for MRSA by PCR Performed By: #### S APCR ####[facility] LABORATORYCLIA [id number] [address] [place] TSH SerPl-aCncon 05-31-2021 TSH Qn 0.829 m[IU]/L Normal 0.270-4.200 [facility] Comment on above: Order Comment: Speci men Type: BLOOD SPECIMEN Performed By: #### 2 143-6, 3016-3 ####[facility] LABORATORYCLIA [id number] [address] [place] XR CHEST 1V FRONTALon 2021 XR CHEST 1V FRONTAL Normal [facility] XR CHEST 1V FRONTAL Normal [facility] Blood Cultureon 05-30-2021 Bacteria identified Cx Nom (Bld) Culture Result - No growth 5 days Normal [facility] Comment on above: Performed By: #### C AD #### [facility] [address] [place] [address] [place] [address] Bacteria identified Cx Nom (Bld) Sp. Request/Comment: - 8.2MLS Culture Result - No growth 5 days Normal [facility] Comment on above: Performed By: #### C AD #### [facility] [address] [place] [id number] [place] [address] C-Reactive Proteinon 022 C-Reactive Protein 1.7 mg/dL High <0.9 [facility] Comment on above: Performed By: #### C RP ####[facility] [address] [place] [id number] CNDSon 05-30-2021 CNDS HNO ID: [id number] Author: Columba Carroll PA-C Service: Hospital Medicine Author Type: Physician Education Administrative Assistant Type: Discharge Summary Filed: 05/30/2021 12:49 PM [...] Team: Attending Provider: Ayaka Menjivar MD Physician Education Administrative Assistant: Columba Carroll PA-C Consulting: Lilo Mendoza MD [...] consulted. Neurology suggested empiric abx coverage for INSURANCE CLAIM APPROVER infection Rocephin and Vancomycin was started. Tele-neuro also suggested an MRI brain be obtained prior to LP to check DRILL OPERATOR PNEUMATIC shunt and decrease risk of herniation in neurosurgery capable facility. Transfer to [facility] requested. Sepsis lactate was 1.3. ABG showed pO2 67.8, placed patient on 2L NC.Follow B1, B12, and RPR pending. Transitions of Care Critical Issues: - patient transferred for [facility] for management of possible INSURANCE CLAIM APPROVER infection and herniation. LABS AND PROCEDURES PENDING [...] q 1 (more content not included)... Normal [facility] CONSULTon 05-30-2021 CONSULT HNO ID: [id number] Author: Juan Carlos Mckenzie MD Service: Infectious [...] Administered COVID-19 vaccine, full dose (MODERNA) 08/22/2020 09/16/202004/06/2021 Current Facility-Administered Medications Medication Dose Route Frequency [...] vertebrae with counting from the craniocervical junction. 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 CT CERVICAL SPINE WO (more content not included)... Normal [facility] CONSULT HNO ID: [id number] Author: Lilo Mendoza MD Service: Neurology General Author Type: Physician Type: Consults Filed: 05/30/2021 10:56 AM Note Text: [facility] TeleNeurology Consult Note Patient seen using [facility]. Recommendations are placed in the chart. Please review. For questions after hours, when teleneurologist is not available, for [place]: Please Page [phone] for the [facility] from 12pm to 8Am Admitting Provider/Consulted by:Hermes Roca MD Time of Note:05/30/2021 Patient Name:Andrew Sifuentes Admit Date:05/29/2021 Hospital Day:0 CC: altered mental status History of Present Illness: Andrew Sifuentes is a 71 year old unknown handed male with limited information about past medical history including venous insufficiency s/p EVLT, hydrocepalus s/p DRILL OPERATOR PNEUMATIC shunt in 1987 with multiple revisions and [...] Date , Taking? , Authorizing Provider Soheila [facility] Debbie Medication Calcium-Cholecalciferol, D3, (CALCIUM 500 + [...] Reflexes Right Lef (more content not included)... [facility] CONSULT PROGon 05-30-2021 CONSULT PROG [facility] CONSULT PROG HNO ID: [id number] Author: Shannon Gutierres [facility] Service: Pharmacy Author Type: Pharmacist Type: Consult Progress Note Filed: 05/30/2021 2:35 PM Note Text: PHARMACY VANCOMYCIN DOSING NOTE Patient Name: Andrew Sifuentes Admission Date: 05/29/2021 Date of Consult: 05/30/2021 Time of Consult: 2:32 PM Indication: possible INSURANCE CLAIM APPROVER infection Goal Range: 15-20 mcg/mL RECOMMENDATIONS/PLAN: Pharmacy [...] any questions, please contact inpatient pharmacy at [phone]. Age: [age] year old Allergies: ALLERGIES Allergen [...] Levels: No results found for: IMANI Gutierres, [facility] Creatinineon 05-30-2021 Creatinine [Mass/Vol] 0.86 mg/dL Normal 0.73-1.22 [facility] Comment on above: Performed By: #### C RET1 ####[facility] [address] [place] [phone] eGFR- Amer. >60 [facility] Comment on above: Performed By: #### C RET1 ####[facility] [address] [place] [phone] eGFR-All Other Races >60 [facility] Comment on above: Result Comment: eGFR [...] at [email or web address]. Performed By: #### C RET1 ####[facility] [address] [place] [phone] Crypto Antigen Deton 022 Crypto Antigen Det Sp. Request/Comment: - SST Test Result - Duplicate request Account Credited [facility] Comment on above: Performed By: #### C AD #### [facility] [address] [place] [address] [facility] [address] [place] [address] Crypto Antigen Det Sp. Request/Comment: - SST Test Result - Cryptococcal antigen detection result: Negative By latex agglutination Normal [facility] Comment on above: Performed By: #### C AD #### [facility] [address] [place] [address] [facility] [address] [place], [place] [address] ED NOTEon 05-30-2021 ED NOTE HNO ID: [id number] Author: Aletha Lopez RN Service: ? Author Type: Registered Nurse Type: ED Notes Filed: 05/29/2021 11:16 PM Note Text: Patient changed for incontinent urine, labs redrawn and sent. Patient aware of plan to be admitted and agrees with plan Normal [facility] HISTORY PHYSICALon HISTORY PHYSICAL Normal [facility] HISTORY PHYSICAL HNO ID: [id number] Author: Hermes Roca MD Service: Hospital Medicine Author Type: Physician Type: HANDP Filed: 05/30/2021 1:03 AM Note Text: DEPARTMENT OF HOSPITAL MEDICINE HISTORY AND PHYSICAL EXAM SERVICE DATE: 05/29/2021 SERVICE TIME: 11:18 PM Primary Care Physician: Mateus Burris MD NIGHT AND WEEKEND COVERAGE: Please page [phone] until 7:30am this morning. After 7:30am please check the treatment team banner and page the appropriate service. 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 Normal [facility] Magnesium [Mass/Vol] 2.5 mg/dL High 1.7-2.3 [facility] Comment on above: Order Comment: Speci men Type: BLOOD SPECIMEN Performed By: #### 1 9123-9, 2777-1 ####[facility]ATORY[facility]IA [id number] [place] [address] [place] NURSING PROGon 05-30-2021 NURSING PROG HNO ID: [id number] Author: Precious Cervantes RN Service: ? Author Type: Registered Nurse Type: Nursing Progress Note Filed: 05/30/2021 11:26 AM Note Text: Nursing Progress Note Patient Name: Andrew Sifuentes Patient Location: [place] [id number] Daily Note: 0700- Report received from shift mgr RN, patient [...] This note was completed by: Precious Cervantes [facility] NURSING PROG HNO ID: [id number] Author: Lyubov Day RN Service: ? Author Type: Registered Nurse Type: Nursing Progress Note Filed: 05/30/2021 1:27 AM Note Text: Nursing Progress Note Patient Name: Andrew Sifuentes Patient [id number] 0100: Patient is unresponsive to questions. Patient [...] This note was completed by: Lyubov Day [facility] Phosphate SerPl-mCncon 05-30 Phosphate [Mass/Vol] 3.5 mg/dL Normal 2.7-4.8 [facility] Comment on above: Order Comment: Speci men Type: BLOOD SPECIMEN Performed By: #### 1 9123-9, 2777-1 ####[facility]ORATORYCLIA [id number] [address] [place] Sepsis Lactateon 05-30-2021 Sepsis Lactate 1.5 mmol/L Normal 0.5-2.0 [facility] Comment on above: Performed By: #### S LACT ####[facility] [address] [place] [phone] Syphilis Ttl w/Reflxon 05-30 Syphilis Interp Cannot exclude recen t Treponemal infection if specimen collected within 7 to 10 days after appearance of suspect lesions or 2 to 3 weeks after an exposure. Clinical correlation is required. [facility] Comment on above: Performed By: #### S YPHTX, B1WB ####[facility] [address] [place], [place] [phone] Syphilis Screen Rslt Non-Reactive Normal Non Reactive [facility] Comment on above: Performed By: #### S YPHTX, B1WB ####[facility] [address] [place], [place] [phone] THERAPY NTon 05-30-2021 THERAPY NT HNO ID: [id number] Author: RADHA Andres/Felecia Service: Occupational Therapy Author Type: Occupational Therapist Type: Therapy (PT/OT/Speech/Resp) Filed: 05/30/2021 10:29 AM Note Text: OCCUPATIONAL THERAPY MISSED VISIT SERVICE DATE: 05/30/2021 SERVICE TIME: 1017 to 1019 ROOM: [place] [address] Attempted Evaluation. Patient not seen due to Not following commands. Per nursing patient was seen by neuro and they are talking about having him transferred to [facility] secondary to shunt concerns. Will re attempt in the event patient continues to be admitted at [place] and is able to participate. SIGNATURE: Bette Jimenez OTR/L PATIENT NAME: Andrew Sifuentes DATE: May 30, 2021 TIME: 10:21 AM [facility] THERAPY NT HNO ID: [id number] Author: Bette Velasquez PT Service: Physical Therapy Author Type: Physical Therapist Type: Therapy (PT/OT/Speech/Resp) Filed: 05/30/2021 8:42 AM Note Text: PHYSICAL THERAPY MISSED VISIT SERVICE DATE: 05/30/2021 SERVICE TIME: 0840 to 0840 ROOM: [place] [address] Attempted Evaluation. Patient not seen due to (pt difficult to awake per RN, very lethargic). Will re-attempt when schedule permits. SIGNATURE: Bette Velasquez PT PATIENT NAME: Andrew Sifuentes DATE: May 30, 2021 TIME: 8:41 AM Normal [facility] Toxicology Screen,Uron 05-30 Amphetamines, Urine Negative Normal Negative [facility] Comment on above: Result Comment: Cuto ff threshold at 1000 ng/mL. Performed By: #### C AD #### [facility] [place] [phone] [place] [phone] Barbiturates, Urine Negative Normal Negative [facility] Comment on above: Result Comment: Cuto ff threshold at 200 ng/mL. Performed By: #### C AD #### [facility] [address] [place] [phone] [facility] [address] [place] [address] Benzodiazepines, Ur Negative Normal Negative [facility] Comment on above: Result Comment: Cuto ff threshold at 200 ng/mL. Performed By: #### C AD #### [facility] [address] [place] [phone] [facility] [address] [place] [address] Cannabinoids, Urine Negative Normal Negative [facility] Comment on above: Result Comment: Cuto ff threshold at 50 ng/mL. Performed By: #### C AD #### [facility] [address] [place] [phone] [place] [address] Cocaine, Urine Negative Normal Negative [facility] Comment on above: Result Comment: Cuto ff threshold at 300 ng/mL. Performed By: #### C AD #### [facility] [address] [place] [phone] [place] [address] Opiates, Urine Negative Normal Negative [facility] Comment on above: Result Comment: Cuto ff threshold at 300 ng/mL. Performed By: #### C AD #### [facility] [place] [phone] [place] [address] Oxycodone, Urine Negative Normal Negative [facility] [...] on the same specimen through Client Services ([phone]) if contacted within 48 hours of initial testing. [1]Substance Abuse and Mental Health Services Administration (2012). Clinical Drug Testing in Primary Care Technical Assistance Publication Series 32. Department of Health and Human Services, [place], p.10. Performed By: #### C AD #### [facility] [place] [phone] [place] 317070 [place] [address] Phencyclidine, Urine Negative Normal Negative [facility] Comment on above: Result Comment: Cuto ff threshold at 25 ng/mL. Performed By: #### C AD #### [facility] [address] [place] [phone] [facility] [address] [place] [address] Troponin Ton 05-30-2021 Troponin T <0.010 Normal 0.000-0.029 [facility] Comment on above: Performed By: #### T NT ####[facility] [address] [place] [phone] Urinalysison 05-30-2021 Bilirubin, Urine Negative Normal Negative [facility] Comment on above: Performed By: #### C AD #### [facility] [address] [place], [place] [phone] [place] [address] Clarity (U) Slightly Cloudy Critically abnormal Clear [facility] Comment on above: Performed By: #### C AD #### [facility] [place] [phone] [place] [address] Color (U) Yellow Normal Yellow [facility] Comment on above: Performed By: #### C AD #### [facility] [address] [place], [place] [phone] [place] [address] Glucose Ql (U) Negative Normal Negative [facility] Comment on above: Performed By: #### C AD #### [facility] [address] [place], [place] [phone] [place] [address] Hemoglobin/Blood,Ur Negative Normal Negative [facility] Comment on above: Performed By: #### C AD #### [facility] [address] [place] [address] [facility] [address] [place], [place] [address] Ketones Ql (U) Negative Normal Negative [facility] Comment on above: Performed By: #### C AD #### [facility] [address] [place] [address] [facility] [address] [place], [place] [address] Leukest Negative Normal Negative [facility] Comment on above: Performed By: #### C AD #### [facility] [address] [place] [address] [facility] [address] [place], [place] [address] Nitrite Ql (U) Negative Normal Negative [facility] Comment on above: Performed By: #### C AD #### [facility] [address] [place] [address] [facility] [address] [place], [place] [address] pH (U) 8.5 [pH] High 5.0-8.0 [facility] Comment on above: Performed By: #### C AD #### [facility] [address] [place] [address] [facility] [address] [place], [place] [address] Protein, Urine Negative Normal Negative [facility] Comment on above: Performed By: #### C AD #### [facility] [address] [place] [address] [facility] [address] [place], [place] [address] Specific [place], Ur 1.015 Normal 1.005-1.030 [facility] Comment on above: Performed By: #### C AD #### [facility] [address] [place] [address] [facility] [address] [place], [place] [address] Urobilinogen Qn (U) 0.2 {Marianne'U}/dL Normal 0.2-1.0 [facility] Comment on above: Performed By: #### C AD #### [facility] [address] [place] [address] [facility] [address] [place], [place] [address] Vitamin B1, Whole Blon 05-30 Vitamin B1 (TDP), WB 207.1 nmol/L Normal 84.0-213.0 [facility] Comment on above: Result Comment: This assay measures the concentration of thiamine diphosphate (TDP), the primary active form of vitamin B1. Approximately 90 percent of vitamin B1 present in whole blood is TDP. Thiamine and thiamine monophosphate, which comprise the remaining 10 percent, are not measured. This test was developed and its performance characteristics determined by [facility]'s [facility] Pathology and Laboratory Medicine [place] ( [facility]). It has not been cleared or approved by the FDA. [facility] is regulated under CLIA as qualified to perform high complexity testing. This test is used for clinical purposes. It should not be regarded as investigational or for research. Performed By: #### S YPHTX, B1WB ####[facility] [place], [place] [phone] Vitamin B12on 05-30-2021 Cobalamin (Vitamin B12) [Mass/Vol] 494 pg/mL Normal 232-1245 [facility] Comment on above: Performed By: #### C AD #### [facility] [address] [place] [address] [place] [address] [place], [place] [address] ALLIED HEALTHon 05-29-2021 ALLIED HEALTH HNO ID: [id number] Author: RT Kitty(R) Service: Radiology Author Type: [...] RT Kitty(R) May 29, 2021 8:51 PM [facility] HEALTH HNO ID: [id number] Author: Markie Fish Service: ? Author Type: Customer Sales Representative Type: Allied Health Filed: 05/29/2021 8:39 [...] Markie Fish May 29, 2021 8:38 PM [facility] CBC and Differentialon 05-29 Abs Baso 0.05 k/uL Normal <0.11 [facility] Comment on above: Performed By: #### C MP, MG1, CBCDIF ####[facility] [address] [place] [address] Abs [place] 0.72 k/uL Normal <0.87 [facility] Comment on above: Performed By: #### C MP, MG1, CBCDIF ####[facility] [address] [place] [address] Abs Neut 7.86 k/uL High 1.45-7.50 [facility] Comment on above: Performed By: #### C MP, MG1, CBCDIF ####[facility] [address] [place] [address] Absolute nRBC <0.01 Normal <0.01 [facility] Comment on above: Performed By: #### C MP, MG1, CBCDIF ####[facility] [address] [place] [address] Basophils/100 WBC (Bld) 0.5 % Normal [facility] Comment on above: Performed By: #### C MP, MG1, CBCDIF ####[facility] [address] [place] [address] DTYPE Auto Diff Normal [facility] Comment on above: Performed By: #### C MP, MG1, CBCDIF ####[facility] [address] [place] [address] Eosinophils (Bld) [#/Vol] 0.10 10*3/uL Normal <0.46 [facility] Comment on above: Performed By: #### C MP, MG1, CBCDIF ####[facility] [address] [place] [address] Eosinophils/100 WBC (Bld) 0.9 % Normal [facility] Comment on above: Performed By: #### C MP, MG1, CBCDIF ####[facility] [address] [place] [address] Erythrocyte distribution width (RBC) [Ratio] 15.5 % High 11.5-15.0 [facility] Comment on above: Performed By: #### C MP, MG1, CBCDIF ####[facility] [address] [place] [address] Hematocrit (Bld) [Volume fraction] 41.6 % Normal 39.0-51.0 [facility] Comment on above: Performed By: #### C MP, MG1, CBCDIF ####[facility] [address] [place] [address] Hemoglobin (Bld) [Mass/Vol] 12.7 g/dL Low 13.0-17.0 [facility] Comment on above: Performed By: #### C MP, MG1, CBCDIF ####[facility] [address] [place] [address] Lymphocytes (Bld) [#/Vol] 2.04 10*3/uL Normal 1.00-4.00 [facility] Comment on above: Performed By: #### C MP, MG1, CBCDIF ####[facility] [address] [place] [address] Lymphocytes/100 WBC (Bld) 18.9 % Normal [facility] Comment on above: Performed By: #### C MP, MG1, CBCDIF ####[facility] [address] [place] [address] MCH 27.3 pG Normal 26.0-34.0 [facility] Comment on above: Performed By: #### C MP, MG1, CBCDIF ####[facility] [address] [place] [address] MCHC (RBC) [Mass/Vol] 30.5 g/dL Normal 30.5-36.0 [facility] Comment on above: Performed By: #### C MP, MG1, CBCDIF ####[facility] [address] [place] [address] MCV (RBC) [Entitic vol] 89.5 fL Normal 80.0-100.0 [facility] Comment on above: Performed By: #### C MP, MG1, CBCDIF ####[facility] [address] [place] [address] Monocytes/100 WBC (Bld) 6.7 % Normal [facility] Comment on above: Performed By: #### C MP, MG1, CBCDIF ####[facility] [address] [place] [address] Neutrophils/100 WBC (Bld) 73.0 % Normal [facility] Comment on above: Performed By: #### C MP, MG1, CBCDIF ####[facility] [address] [place] [address] NRBCs 0.0 /100 WBC Normal 0 [facility] Comment on above: Performed By: #### C MP, MG1, CBCDIF ####[facility] [address] [place] [address] Platelet mean volume (Bld) [Entitic vol] 10.1 fL Normal 9.0-12.7 [facility] Comment on above: Performed By: #### C MP, MG1, CBCDIF ####[facility] [address] [place] [phone] Platelets (Bld) [#/Vol] 291 10*3/uL Normal 150-400 [facility] Comment on above: Performed By: #### C MP, MG1, CBCDIF ####[facility] [address] [place] [phone] RBC (Bld) [#/Vol] 4.65 10*6/uL Normal 4.20-6.00 [facility] Comment on above: Performed By: #### C MP, MG1, CBCDIF ####[facility] [address] [place] [phone] WBC (Bld) [#/Vol] 10.77 10*3/uL Normal 3.70-11.00 [facility] Comment on above: Performed By: #### C MP, MG1, CBCDIF ####[facility] [address] [place] [phone] CT BRAIN WO IVCONon 05-29-19 CT BRAIN WO IVCON * * *Final Report* * * DATE OF EXAM: May 29 2021 8:42PM [facility] 0504 - CT BRAIN WO IVCON / PROCEDURE REASON: Head trauma, headache * * * * Physician Interpretation * * * * EXAMINATION: CT CERVICAL SPINE WO IVCON, CT BRAIN WO IVCON CLINICAL HISTORY: C-spine trauma, NEXUS/CCR positive (accession [id number]), Head trauma, headache (accession [id number]) TECHNIQUE: Serial axial unenhanced images were obtained from the vertex to the foramen magnum. Spiral, high resolution axial unenhanced images were obtained from the skull base to the cervicothoracic junction with sagittal and coronal planar reconstructions. Dose-Length Product (DLP): 2132 mGy*cm. CT Dose Reduction Employed: Automated exposure control (AEC) COMPARISON: 08/13/[address] RESULT: BRAIN: Post-operative change: Right parietal approach DRILL OPERATOR PNEUMATIC shunt is intact. The intracranial fragments of [...] vertebrae with counting from the craniocervical junction. Meat Scrubber: [facility] Transcribe Date/Time: May 29 2021 8:59P Dictated by : CARLOS YOUNGER MD This examination was interpreted and the report reviewed and electronically signed by: CARLOS YOUNGER MD on May 29 2021 9:14PM EST [id number] [facility] CT CERVICAL SPINE WO IVCONon 05-29-2021 CT CERVICAL SPINE WO IVCON * * *Final Report* * * DATE OF EXAM: May 29 2021 8:42PM [facility] 0505 - CT CERVICAL SPINE WO IVCON / PROCEDURE REASON: C-spine trauma, NEXUS/CCR positive * * * * Physician Interpretation * * * * EXAMINATION: CT CERVICAL SPINE WO IVCON, CT BRAIN WO IVCON CLINICAL HISTORY: C-spine trauma, NEXUS/CCR positive (accession [id number]), Head trauma, headache (accession [id number]) TECHNIQUE: Serial axial unenhanced images were obtained from the vertex to the foramen magnum. Spiral, high resolution axial unenhanced images were obtained from the skull base to the cervicothoracic junction with sagittal and coronal planar reconstructions. Dose-Length Product (DLP): 2132 mGy*cm. CT Dose Reduction Employed: Automated exposure control (AEC) COMPARISON: 08/13/[address] RESULT: BRAIN: Post-operative change: Right parietal approach DRILL OPERATOR PNEUMATIC shunt is intact. The intracranial fragments of [...] vertebrae with counting from the craniocervical junction. Meat Scrubber: [facility]il[facility] Transcribe Date/Time: May 29 2021 8:59P Dictated by : CARLOS YOUNGER MD This examination was interpreted and the report reviewed and electronically signed by: CARLOS YOUNGER MD on May 29 2021 9:14PM EST [id number] Normal [facility] Cepheid Bill only (EXCFR)on 05-29-2021 Cepheid Bill only (EXCFR) Billed for services performed Normal [facility] Comment on above: Performed By: #### C AD #### [facility] [address] [place] [address] [facility] [address] [place], [place] [address] Comp Metabolic Panelon 05-29 Albumin [Mass/Vol] 4.1 g/dL Normal 3.9-4.9 [facility] Comment on above: Performed By: #### C MP ####[facility] [address] [place] [address] ALP [Catalytic activity/Vol] 86 U/L Normal 38-113 [facility] Comment on above: Performed By: #### C MP ####[facility] [address] [place] [address] ALT [Catalytic activity/Vol] 15 U/L Normal 10-54 [facility] Comment on above: Performed By: #### C MP ####[facility] [address] [place] [address] Anion gap [Moles/Vol] 9 mmol/L Normal 9-18 [facility] Comment on above: Performed By: #### C MP ####[facility] [address] [place] [address] AST [Catalytic activity/Vol] 22 U/L Normal 14-40 [facility] Comment on above: Performed By: #### C MP ####[facility] [address] [place] [address] Bilirubin [Mass/Vol] 0.2 mg/dL Normal 0.2-1.3 [facility] Comment on above: Performed By: #### C MP ####[facility] [address] [place] [address] Calcium [Mass/Vol] 9.1 mg/dL Normal 8.5-10.2 [facility] Comment on above: Performed By: #### C MP ####[facility] [address] [place] [address] Chloride [Moles/Vol] 103 mmol/L Normal 97-105 [facility] Comment on above: Performed By: #### C MP ####[facility] [address]hiqkcs292857 [place] [address] CO2 [Moles/Vol] 29 mmol/L Normal 22-30 [facility] Comment on above: Performed By: #### C MP ####[facility] [address] [place] [address] Creatinine [Mass/Vol] 0.89 mg/dL Normal 0.73-1.22 [facility] Comment on above: Performed By: #### C MP ####[facility] [address] [place] [address] eGFR- Amer. >60 Normal [facility] Comment on above: Performed By: #### C MP ####[facility] [address] [place] [phone] eGFR-All Other Races >60 Normal [facility] Comment on above: Result Comment: eGFR (Estimated [...] at [email or web address]. Performed By: #### C MP ####[facility] Jmisridsxx9858 [place] [phone] Glucose [Mass/Vol] 120 mg/dL High 74-99 [facility] Comment on above: Result Comment: The [place] Diabetes Association (ADA) provides guidance for cutoff [...] Standards of Medical Care in Diabetes 2016, [place] [employer] Association. Diabetes Care. 2016.39(Suppl 1). Performed By: #### C MP ####[facility] [address]20[address] [place] [phone] Potassium [Moles/Vol] 4.2 mmol/L Normal 3.7-5.1 [facility] Comment on above: Performed By: #### C MP ####[facility] [address]olf[address]90 [place] [address] Protein [Mass/Vol] 7.1 g/dL Normal 6.3-8.0 [facility] Comment on above: Performed By: #### C MP ####[facility] [address]ttix[address]ktp20[address] [place] [address] Sodium [Moles/Vol] 141 mmol/L Normal 136-144 [facility] Comment on above: Performed By: #### C MP ####[facility] [address]lvhgtgmyy4271 [place] [address] Urea nitrogen [Mass/Vol] 11 mg/dL Normal 9-24 [facility] Comment on above: Performed By: #### C MP ####[facility] [address]ymwcn[address]ucn030[address] [place] [address] Albumin [Mass/Vol] 4.1 g/dL Normal 3.9-4.9 [facility] Comment on above: Performed By: #### C MP, MG1, CBCDIF ####[facility] [address]csep16[address] [place] [address] ALP [Catalytic activity/Vol] 86 U/L Normal 38-113 [facility] Comment on above: Performed By: #### C MP, MG1, CBCDIF ####[facility] Jhkn[address]sefcv43[address] [place] [address] ALT Unable to assay due to interference from hemolysis. Suggest reorder as clinically indicated. Normal 10-54 [facility] Comment on above: Result Comment: Call ed to ED Álvaro at 2128 on 05.29.21 by Sabino Performed By: #### C MP, MG1, CBCDIF ####[facility] Ocupvlkpkc[address] [place] [phone] Anion gap [Moles/Vol] 12 mmol/L Normal 9-18 [facility] Comment on above: Performed By: #### C MP, MG1, CBCDIF ####[facility] Gdoiqsaekw4[address] [place] [address] AST Unable to assay due to interference from hemolysis. Suggest reorder as clinically indicated. Normal 14-40 [facility] Comment on above: Result Comment: Call ed to ED Álvaro at 2129 on 05.29.21 by Sabino Performed By: #### C MP, MG1, CBCDIF ####[facility] Dggrhfodae4037 [place] [address] Bilirubin [Mass/Vol] 0.2 mg/dL Normal 0.2-1.3 [facility] Comment on above: Performed By: #### C MP, MG1, CBCDIF ####[facility] Noeeotgzkn9551 [place] [address] Calcium [Mass/Vol] 9.0 mg/dL Normal 8.5-10.2 [facility] Comment on above: Performed By: #### C MP, MG1, CBCDIF ####[facility] [address] [place] [address] Chloride [Moles/Vol] 102 mmol/L Normal 97-105 [facility] Comment on above: Performed By: #### C MP, MG1, CBCDIF ####[facility] Eeeaqckqyk3080 [place] [address] CO2 [Moles/Vol] 27 mmol/L Normal 22-30 [facility] Comment on above: Performed By: #### C MP, MG1, CBCDIF ####[facility] Wwwgysqcyf5940 [place] [address] Creatinine [Mass/Vol] 0.75 mg/dL Normal 0.73-1.22 [facility] Comment on above: Performed By: #### C MP, MG1, CBCDIF ####[facility] Prqigmawwq34[address] [place] [address] eGFR- Amer. >60 Normal [facility] Comment on above: Performed By: #### C MP, MG1, CBCDIF ####[facility] [address]cfdw[address] [place] [address] eGFR-All Other Races >60 Normal [facility] Comment on above: Result Comment: eGFR (Estimated [...] Performed By: #### C MP, MG1, CBCDIF ####[facility] Zhnujfeabr0912 [phone] Glucose [Mass/Vol] 112 mg/dL High 74-99 [facility] Comment on above: Result Comment: The [place] Diabetes Association (ADA) provides guidance for cutoff [...] Standards of Medical Care in Diabetes 2016, [place] Diabetes Association. Diabetes Care. 2016.39(Suppl 1). Performed By: #### C MP, MG1, CBCDIF ####[facility] Ipczyusmcv2075 [phone] Potassium Unable to assay due to interference from hemolysis. Suggest reorder as clinically indicated. Normal 3.7-5.1 [facility] Comment on above: Result Comment: Call ed to LISA Rea at 2129 on 05.29.21 by Sabino Performed By: #### C MP, MG1, CBCDIF ####[facility] [address]zkl[address]wctr3676 [place] [phone] Protein [Mass/Vol] 7.3 g/dL Normal 6.3-8.0 [facility] Comment on above: Performed By: #### C MP, MG1, CBCDIF ####[facility] Xcrbkkdwex8644 [place] [phone] Sodium [Moles/Vol] 141 mmol/L Normal 136-144 [facility] Comment on above: Performed By: #### C MP, MG1, CBCDIF ####[facility] Mcriczpqgw4814 [place] [phone] Urea nitrogen [Mass/Vol] 11 mg/dL Normal 9-24 [facility] Comment on above: Performed By: #### C MP, MG1, CBCDIF ####[facility] [address]qfo[address] [place] [phone] ED PROV NOTEon 05-29-2021 ED PROV NOTE HNO ID: [id number] Author: Shanell Slaughter MD Service: ? Author [...] No radiographic evidence of acute cardiopulmonary disease. Meat Scrubber: [facility] Transcribe Date/Time: May 29 2021 8:53P [...] vertebrae with counting from the craniocervical junction. Meat Scrubber: [facility] Transcribe Date/Time: May 29 2021 8:59P [...] vertebrae with counting from the craniocervical junction. Meat Scrubber: [facility] Transcribe Date/Time: May 29 (more content not included)... 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 [facility] Physical Exam [...] Flavio Pandya, DO Flavio Pandya, 05/29/211909 Normal [facility] EXCOVD, Flu A/B, RSV (On int erfaces 1102,1120)on 05-29-2021 Influenza A PCR Negative [facility] Comment on above: Performed By: #### C AD #### [facility] [address] [place] [address] [facility] [address] [place], [place] [address] Influenza B PCR Negative Normal [facility] Comment on above: Performed By: #### C AD #### [facility] [address] [place] [address] [facility] [place], [place] [address] RSV PCR Negative [facility] Comment on above: Result Comment: This test has been authorized by FDA under an Emergency Use Authorization (EUA). Performed By: #### C AD #### [facility] [place] [phone] [place] [address] SARS-CoV-2 (COVID-19) RNA MEGAN+probe Ql (Unsp spec) UPPER RESPIRATORY TRACT SWAB Normal [facility] Comment on above: Performed By: #### C AD #### [facility] [place] [phone] [place] [address] SARS-CoV-2 (COVID-19) RNA MEGAN+probe Ql (Unsp spec) Negative for COVID19 (SARS CoV2) by RT-PCR or equivalent method. Normal Negative for COVID19 (SARS CoV2) by RT-PCR or equivalent method. [facility] Comment on above: Result Comment: This test has been authorized by FDA under an Emergency Use Authorization (EUA). Performed By: #### C AD #### [facility] [place] [phone] [place] [address] Magnesiumon 05-29-2021 Magnesium [Mass/Vol] 2.2 mg/dL Normal 1.7-2.3 [facility] Comment on above: Performed By: #### C MP, MG1, CBCDIF ####[facility] Rvkieudbio9037 [address]5[address] NT Pro BNPon 05-29-2021 PRO B Natr Peptide 303 pg/mL High <125 [facility] Comment on above: Performed By: #### N TBNP ####[facility] Ooahpumvwa3492 [address]5[address] Troponin Ton 05-29-2021 Troponin T <0.010 Normal 0.000-0.029 [facility] Comment on above: Performed By: #### T NT ####[facility] Whhxidvxzq1614 [phone] Troponin T Unable to assay due to interference from hemolysis. Suggest reorder as clinically indicated. Normal 0.000-0.029 [facility] Comment on above: Result Comment: Call ed to ED Álvaro at 2129 on 05.29.21 by Sabino Performed By: #### T NT ####[facility] [address] [place] [phone] XR CHEST 1V FRONTAL PORTon 0 05-29-2021 [...] No radiographic evidence of acute cardiopulmonary disease. Meat Scrubber: OG Transcribe Date/Time: May 29 2021 8:53P Dictated by : ROLY BANGURA MD This examination was interpreted and the report reviewed and electronically signed by: ROLY BANGURA MD on May 29 2021 8:54PM EST [id number] Normal [facility] COMPREHENSIVE PANELon 2020 Albumin [Mass/Vol] 3.9 g/dL Normal 3.4 - 5.0 [facility] Comment on above: Order Comment: PATIE NT FASTING Performed By: #### C MP #### [facility] [address] [place] [address] ALP [Catalytic activity/Vol] 71 U/L Normal 33 - 136 [facility] Comment on above: Order Comment: PATIE NT FASTING Performed By: #### C MP #### [facility] [address] [place] [address] ALT [Catalytic activity/Vol] 19 U/L Normal 10 - 52 [facility] Comment on above: Order Comment: PATIE NT FASTING Result Comment: Nasima ents treated with Sulfasalazine may generate falsely decreased results for ALT. Performed By: #### C MP #### [facility] [address] [place] [address] Anion gap [Moles/Vol] 13 mmol/L Normal 10 - 20 [facility] Comment on above: Order Comment: PATIE NT FASTING Performed By: #### C MP #### [facility] [address] [place] [address] AST [Catalytic activity/Vol] 20 U/L Normal 9 - 39 [facility] Comment on above: Order Comment: PATIE NT FASTING Performed By: #### C MP #### [facility] [address] [place] [address] Bilirubin [Mass/Vol] 0.6 mg/dL Normal 0.0 - 1.2 [facility] Comment on above: Order Comment: PATIE NT FASTING Performed By: #### C MP #### [facility] [address] [place] [address] Calcium [Mass/Vol] 9.0 mg/dL Normal 8.6 - 10.6 [facility] Comment on above: Order Comment: PATIE NT FASTING Performed By: #### C MP #### [facility] [address] [place] [address] Chloride [Moles/Vol] 103 mmol/L Normal 98 - 107 [facility] Comment on above: Order Comment: PATIE NT FASTING Performed By: #### C MP #### [facility] [address] [place] [address] Creatinine [Mass/Vol] 0.94 mg/dL Normal 0.50 - 1.30 [facility] Comment on above: Order Comment: PATIE NT FASTING Performed By: #### C MP #### [facility] [address] [place] [address] GFR- AM. >60 Normal >60 [facility] Comment on above: Order Comment: PATIE NT FASTING Result Comment: CALC ULATIONS OF ESTIMATED GFR ARE PERFORMED USING THE MDRD STUDY EQUATION FOR THE IDMS-TRACEABLE CREATININE METHODS. CLIN CHEM 2007;53:766-72 Performed By: #### C MP #### [facility] [address] [place] [address] GFR-NON AM. >60 Normal >60 [facility] Comment on above: Order Comment: PATIE NT FASTING Performed By: #### C MP #### [facility] [address] [place] [address] Glucose [Mass/Vol] 85 mg/dL Normal 74 - 99 [facility] Comment on above: Order Comment: PATIE NT FASTING Performed By: #### C MP #### [facility] [address] [place] [address] HCO3 (Bld) [Moles/Vol] 30 mmol/L Normal 21 - 32 [facility] Comment on above: Order Comment: PATIE NT FASTING Performed By: #### C MP #### [place] [address] [place] [address] Potassium [Moles/Vol] 4.1 mmol/L Normal 3.5 - 5.3 [facility] Comment on above: Order Comment: PATIE NT FASTING Performed By: #### C MP #### [facility] [address] [place] [address] Protein [Mass/Vol] 6.6 g/dL Normal 6.4 - 8.2 [facility] Comment on above: Order Comment: PATIE NT FASTING Performed By: #### C MP #### [facility] [address] [place] [address] Sodium [Moles/Vol] 142 mmol/L Normal 136 - 145 [facility] Comment on above: Order Comment: PATIE NT FASTING Performed By: #### C MP #### [facility] [address] [place] [address] Urea nitrogen [Mass/Vol] 14 mg/dL Normal 6 - 23 [facility] Comment on above: Order Comment: PATIE NT FASTING Performed By: #### C MP #### [facility] [address] [place] [address] LIPID PANEL (CORONARY RISK 2 )on 09-03-2020 Cholesterol [Mass/Vol] 210 mg/dL High 0 - 199 [facility] Comment on above: Order Comment: PATIE NT [...] dosing. Performed By: #### L IPID #### [facility] [address] [place] [address] Cholesterol in HDL [Mass/Vol] 50.1 mg/dL Normal [facility] Comment on above: Order Comment: PATIE NT FASTING Result Comment: . AGE VERY LOW LOW NORMAL HIGH 0-19 Y < 35 < 40 40-45 ---- 20-24 Y ---- < 40 >45 ---- >24 Y ---- < 40 40-60 >60 . Performed By: #### L IPID #### [facility] [address] [place] [address] Cholesterol in LDL [Mass/Vol] 130 mg/dL High 0 - 99 [facility] Comment on above: Order Comment: PATIE NT FASTING Result Comment: . NEAR BORD AGE DESIRABLE OPTIMAL HIGH HIGH VERY HIGH 0-19 Y 0 - 109 --- 110-129 >/= 130 ---- 20-24 Y 0 - 119 --- 120-159 >/= 160 ---- >24 Y 0 - 99 100-129 130-159 160-189 >/=190 . Performed By: #### L IPID #### [facility] [address] [place] [address] Cholesterol in VLDL [Mass/Vol] 30 mg/dL Normal 0 - 40 [facility] Comment on above: Order Comment: PATIE NT FASTING Performed By: #### L IPID #### [facility] [address] [place] [address] Cholesterol.total/Chol esterol in HDL [Mass ratio] 4.2 {ratio} Normal [facility] Comment on above: Order Comment: PATIE NT FASTING Result Comment: REF VALUES DESIRABLE < 3.4 HIGH RISK > 5.0 Performed By: #### L IPID #### [facility] [address] [place] [address] Triglyceride [Mass/Vol] 152 mg/dL High 0 - 149 [facility] Comment on above: Order Comment: PATIE NT [...] dosing. Performed By: #### L IPID #### [facility] [address] [place] [address] PROSTATE SPEC.AG,SCREENon PROSTATE SPEC.AG,SCREEN 0.37 ng/mL Normal 0.00 - 4.00 [facility] Comment on above: Order Comment: PATIE NT FASTING Result Comment: The FDA requires that the method used for PSA assay be reported to the physician. Values obtained with different assay methods must not be used interchangeably. This test was performed at [facility] using the Siemens [employer] PSA method, which is a sandwich immunoassay using chemiluminescence for quantitation. The assay is approved for measurement of prostate-specific antigen (PSA) in serum and may be used in conjunction with a digital rectal examination in men 50 years and older as an aid in detection of prostate cancer. 5-Ubvjk-qzpiwxksu inhibitors (e.g. Proscar, Finasteride, Avodart, Dutasteride and Elizabeth) for the treatment of BPH have been shown to lower PSA levels by an average of 50% after 6 months of treatment. Performed By: #### P SASC #### [facility] [address] [place] [address] TSH WITH REFLEX TO FREE T4 I F ABNORMALon 09-03-2020 TSH Qn 0.97 m[IU]/L Normal 0.44 - 3.98 [facility] Comment on above: Order Comment: PATIE NT FASTING Result Comment: TSH testing is performed using different testing methodology at [facility] than at other [facility]. Direct result comparisons should only be made within the same method. Performed By: #### T HYDS #### [facility] [address] [place] [address] CBC AND DIFFERENTIALon 09-02 % AUTOMATED IMMATURE GRAN 0.3 % Normal 0.0 - 0.9 [facility] Comment on above: Order Comment: PATIE NT FASTING Result Comment: [place] ture Granulocyte Count (IG) includes promyelocytes, myelocytes and metamyelocytes but does not include bands. Percent differential counts (%) should be interpreted in the context of the absolute cell counts (cells/L). Performed By: #### C BCDF #### [facility] [address] [place] [address] Basophils (Bld) [#/Vol] 0.07 10*3/uL Normal 0.00 - 0.10 [facility] Comment on above: Order Comment: PATIE NT FASTING Result Comment: Auto mated WBC differential has been confirmed by manual smear. Performed By: #### C BCDF #### [facility] [address] [place] [address] Basophils/100 WBC (Bld) 0.9 % Normal 0.0 - 2.0 [facility] Comment on above: Order Comment: PATIE NT FASTING Performed By: #### C BCDF #### [facility] [address] [place] [address] Eosinophils (Bld) [#/Vol] 0.21 10*3/uL Normal 0.00 - 0.70 [facility] Comment on above: Order Comment: PATIE NT FASTING Performed By: #### C BCDF #### [facility] [address] [place] [address] Eosinophils/100 WBC (Bld) 2.8 % Normal 0.0 - 6.0 [facility] Comment on above: Order Comment: PATIE NT FASTING Performed By: #### C BCDF #### [facility] [address] [place] [address] Lymphocytes (Bld) [#/Vol] 2.28 10*3/uL Normal 1.20 - 4.80 [facility] Comment on above: Order Comment: PATIE NT FASTING Performed By: #### C BCDF #### [facility] [address] [place] [address] Lymphocytes/100 WBC (Bld) 30.9 % Normal 13.0 - 44.0 [facility] Comment on above: Order Comment: PATIE NT FASTING Performed By: #### C BCDF #### [facility] [address] [place] [address] Monocytes (Bld) [#/Vol] 0.50 10*3/uL Normal 0.10 - 1.00 [facility] Comment on above: Order Comment: PATIE NT FASTING Performed By: #### C BCDF #### [facility] [address] [place] [address] Monocytes/100 WBC (Bld) 6.8 % Normal 2.0 - 10.0 [facility] Comment on above: Order Comment: PATIE NT FASTING Performed By: #### C BCDF #### [facility] [address] [place] [address] Neutrophils (Bld) [#/Vol] 4.29 10*3/uL Normal 1.20 - 7.70 [facility] Comment on above: Order Comment: PATIE NT FASTING Performed By: #### C BCDF #### [facility] [address] [place] [address] Neutrophils/100 WBC (Bld) 58.3 % Normal 40.0 - 80.0 [facility] Comment on above: Order Comment: PATIE NT FASTING Performed By: #### C BCDF #### [facility] [address] [place] [address] Erythrocyte distribution width (RBC) [Ratio] 14.6 % High 11.5 - 14.5 [facility] Comment on above: Order Comment: PATIE NT FASTING Performed By: #### C BCDF #### [facility] [address] [place] [address] Hematocrit (Bld) [Volume fraction] 43.1 % Normal 41.0 - 52.0 [facility] Comment on above: Order Comment: PATIE NT FASTING Performed By: #### C BCDF #### [facility] [address] [place] [address] Hemoglobin (Bld) [Mass/Vol] 13.3 g/dL Low 13.5 - 17.5 [facility] Comment on above: Order Comment: PATIE NT FASTING Performed By: #### C BCDF #### [facility] [address] [place] [address] MCHC (RBC) [Mass/Vol] 30.9 g/dL Low 32.0 - 36.0 [facility] Comment on above: Order Comment: PATIE NT FASTING Performed By: #### C BCDF #### [facility] [address] [place] [address] MCV (RBC) [Entitic vol] 92 fL Normal 80 - 100 [facility] Comment on above: Order Comment: PATIE NT FASTING Performed By: #### C BCDF #### [facility] [address] [place] [address] NUCLEATED RBC 0.0 /100 WBC Normal 0.0-0.0 [facility] Comment on above: Order Comment: PATIE NT FASTING Performed By: #### C BCDF #### [facility] [address] [place] [address] Platelets (Bld) [#/Vol] 267 10*3/uL Normal 150 - 450 [facility] Comment on above: Order Comment: PATIE NT FASTING Performed By: #### C BCDF #### [facility] [address] [place] [address] RBC 4.69 x10E12/L Normal 4.50 - 5.90 [facility] Comment on above: Order Comment: PATIE NT FASTING Performed By: #### C BCDF #### [facility] [address] [place] [address] WBC (Bld) [#/Vol] 7.4 10*3/uL Normal 4.4 - 11.3 [facility] Comment on above: Order Comment: PATIE NT FASTING Performed By: #### C BCDF #### [facility] [address] [place] [address] RED CELL MORPHOLOGYon 2020 CHANELL CELLS Few Normal [facility] Comment on above: Order Comment: PATIE NT FASTING Performed By: #### M ORP2 #### [facility] [address] [place] [address] OVALOCYTES Few Normal [facility] [facility] Comment on above: Order Comment: PATIE NT FASTING Performed By: #### M ORP2 #### [facility] [address] [place] [address] POLYCHROMASIA Mild Normal [facility] Comment on above: Order Comment: PATIE NT FASTING Performed By: #### M ORP2 #### [facility] [address] [place] [address] RBC FRAGMENTS Few Normal [facility] Comment on above: Order Comment: PATIE NT FASTING Performed By: #### M ORP2 #### [facility] [address] [place] [address] RBC morphology finding Nom (Bld) See Below Normal [facility] Comment on above: Order Comment: PATIE NT FASTING Performed By: #### M ORP2 #### [facility] [address] [place] [address] No Panel Informationon 01-19 76 1 MP-Cardiolo [...] [place] Work Phone: [email or web address] ?RetrieveTestByDateTime?P [email or web address]=[id number]&Date=1 09-13-2019&Time=15%3a11%3a 03%3a00&TestType=ECG&Site =1&OutputType=PDF&Ext=PDF MP-Cardiolo gy-[place] 140 [place] Work Phone: Otheron 11-13-2019 [facility] Complete Blood Count + Diffe rentialon [...] (Bld) [Volume fraction] 45.5 % See Below [facility] Work Phone: Comment on above: Reference Range: 41. 0 - 52.0 Hemoglobin (Bld) [Mass/Vol] 14.0 g/dL See Below [facility] Work Phone: Comment on above: Reference Range: 13. 5 - 17.5 Lymphocytes (Bld) [#/Vol] 2.15 {x10E9/L} See Below [facility] Work Phone: Comment on above: Reference Range: 1.2 0 - 4.80 Lymphocytes/100 WBC (Bld) 29.9 % See Below [facility] Work Phone: Comment on above: Reference Range: 13. 0 - 44.0 MCHC (RBC) [Mass/Vol] 30.8 g/dL below low threshold See Below [facility] Work Phone: Comment on above: Reference Range: 32. 0 - 36.0 MCV (RBC) [Entitic vol] 94 fL 80 - 100 [facility] Work Phone: Monocytes (Bld) [#/Vol] 0.49 {x10E9/L} See Below [facility] Work Phone: Comment on [...] (Bld) [#/Vol] 270 {x10E9/L} 150 - 450 [facility] Physician [facility] Work Phone: RBC (Bld) [#/Vol] 4.85 {x10E12/L} See Below [facility] Work Phone: Comment on above: Reference Range: 4.5 0 - 5.90 WBC (Bld) [#/Vol] 0.0 {/100_WBC} 0.0-0.0 [facility] Physician [facility] Work Phone: WBC (Bld) [#/Vol] 7.2 {x10E9/L} 4.4 - 11.3 [facility] Physician [facility] Work Phone: Complete Blood Count + Differential 0.1 % 0.0 - 0.9 [facility] Work Phone: Comment on above: Immature Granulocyte Count (IG) includes promyelocytes, myelocytes and metamyelocytes but does not include bands. Percent differential counts (%) should be interpreted in the context of the absolute cell counts (cells/L). Lipid Panelon 11-06-2019 Cholesterol [Mass/Vol] 181 mg/dL 0 - 199 [facility] Work Phone: Comment on above: [...] dosing. Cholesterol in HDL [Mass/Vol] 52.1 mg/dL [facility] Physician [facility] Work Phone: Comment on above: . AGE VERY LOW LOW N ORMAL HIGH 0-19 Y < 35 < 40 40-45 ---- 20-24 Y ---- < 40 >45 ---- >24 Y ---- < 40 40-60 >60. Cholesterol in LDL [Mass/Vol] 97 mg/dL 0 - 99 [facility] Work Phone: Comment on above: . NEAR BORD AGE IZABELLA RABLE OPTIMAL HIGH HIGH VERY HIGH 0-19 Y 0 - 109 --- 110-129 >/= 130 ---- 20-24 Y 0 - 119 --- 120-159 >/= 160 ---- >24 Y 0 - 99 100-129 130-159 160-189 >/=190. Cholesterol.total/Chol esterol in HDL [Mass ratio] 3.5 {ratio} [facility] Work Phone: Comment on above: REF VALUESDESIRABLE < 3.4HIGH RISK > 5.0 Triglyceride [Mass/Vol] 158 mg/dL above high threshold 0 - 149 [facility] Work Phone: Comment on above: [...] Lipid Panel 32 mg/dL 0 - 40 [facility] Work Phone: Metabolic Panelon 11-06-2019 ALP [Catalytic activity/Vol] 70 U/L 33 - 136 [facility] Work Phone: Anion gap [Moles/Vol] 13 mmol/L 10 - 20 [facility] Work Phone: Bilirubin [Mass/Vol] 0.6 mg/dL 0.0 - 1.2 [facility] Physician [facility] Work Phone: Calcium [Mass/Vol] 9.4 mg/dL 8.6 - 10.6 [facility] Work Phone: Chloride [Moles/Vol] 99 mmol/L 98 - 107 [facility] Work Phone: CO2 [Moles/Vol] 30 mmol/L 21 - 32 [facility] Physician [facility] Work Phone: Creatinine [Mass/Vol] 0.87 mg/dL See Below [facility] Work Phone: Comment on above: Reference Range: 0.5 0 - 1.30 Glucose [Mass/Vol] 89 mg/dL 74 - 99 [facility] Work Phone: Potassium [Moles/Vol] 4.3 mmol/L 3.5 - 5.3 [facility] Work Phone: Protein [Mass/Vol] 7.3 g/dL 6.4 - 8.2 [facility] Work Phone: Sodium [Moles/Vol] 138 mmol/L 136 - 145 [facility] Work Phone: Urea nitrogen [Mass/Vol] 14 mg/dL 6 - 23 [facility] Work Phone: Otheron 11-06-2019 Albumin BCP dye [Mass/Vol] 4.4 g/dL 3.4 - 5.0 [facility] Work Phone: ALT With P-5'-P [Catalytic activity/Vol] 11 U/L 10 - 52 [facility] Work Phone: Comment on above: Patients treated wit h Sulfasalazine may generate falsely decreased results for ALT. AST With P-5'-P [Catalytic activity/Vol] 17 U/L 9 - 39 [facility] Work Phone: >60 >60 [facility] Work Phone: Comment on above: CALCULATIONS OF LUZMARIA MATED GFR ARE PERFORMED USING THE MDRD STUDY EQUATION FOR THE IDMS-TRACEABLE CREATININE METHODS. CLIN CHEM 2007;53:766-72 Culture, urine Bacteria identified Cx Nom (U) Mixed Gram Pos & Gram Neg Org [facility] Work Phone: Bacteria identified Cx Nom (U) Klebsiella pneumoniae sp pneum [facility] Work Phone: Vital Signs Date Time Vital Sign Value Performing Clinician Facility 09-13-2023 11:48-0400 Body height 175.3 cm Rebecca Buck MD Work Phone: [facility] 09-13-2023 11:48-0400 Body mass index (BMI) [Ratio] 25.84 kg/m2 Rebecca Buck MD Work Phone: [facility] 09-13-2023 11:48-0400 Body weight 79.38 kg Rebecca Buck MD Work Phone: [facility] 08-13-2023 09:56-0400 Body height 175.3 cm Rebecca Buck MD Work Phone: [facility] 08-13-2023 09:56-0400 Body mass index (BMI) [Ratio] 25.84 kg/m2 Rebecca Buck MD Work Phone: [facility] 08-13-2023 09:56-0400 Body weight 79.38 kg Rebecca Buck MD Work Phone: [facility] [employer] 03-02-2022 18:49-0400 Body temperature 98.01 [degF] Lanette Munguia DO Work Phone: [facility] 03-02-2022 18:49-0400 Diastolic blood pressure 72 mm[Hg] Lanette Munguia DO Work Phone: [employer] 03-02-2022 18:49-0400 Heart rate 94 /min Lanette Munguia DO Work Phone: [facility] 03-02-2022 18:49-0400 Respiratory rate 18 /min Lanette Munguia DO Work Phone: [facility] 03-02-2022 18:49-0400 SaO2% (BldA) [Mass fraction] 98 % Lanette Munguia DO Work Phone: [facility] 03-02-2022 18:49-0400 Systolic blood pressure 104 mm[Hg] Lanette Munguia DO Work Phone: [facility] 03-02-2022 11:55-0400 Body height 175.3 cm Lanette Munguia DO Work Phone: [facility] 03-02-2022 11:55-0400 Body mass index (BMI) [Ratio] 25.84 kg/m2 Lanette Munguia DO Work Phone: [facility] 03-02-2022 11:55-0400 Body weight 79.38 kg Lanette Munguia DO Work Phone: [facility] 12-22-2021 02:08-0400 Diastolic blood pressure 67 mm[Hg] Sharon Olivia MD Work Phone: [facility] 12-22-2021 02:08-0400 Heart rate 77 /min Sharon Olivia MD Work Phone: [facility] 12-22-2021 02:08-0400 Respiratory rate 16 /min Sharon Olivia MD Work Phone: [facility] 12-22-2021 02:08-0400 SaO2% (BldA) [Mass fraction] 96 % Sharon Olivia MD Work Phone: [facility] 12-22-2021 02:08-0400 Systolic blood pressure 108 mm[Hg] Sharon Olivia MD Work Phone: [facility] 12-21-2021 23:52-0400 Body height 175.3 cm Sharon Olivia MD Work Phone: [facility] 12-21-2021 23:52-0400 Body mass index (BMI) [Ratio] 25.84 kg/m2 Sharon Olivia MD Work Phone: [facility] 12-21-2021 23:52-0400 Body temperature 97.9 [degF] Sharon Olivia MD Work Phone: [facility] 12-21-2021 23:52-0400 Body weight 79.38 kg Sharon Olivia MD Work Phone: [facility] 11-01-2021 08:41-0400 Diastolic blood pressure 77 mm[Hg] Dante Kim MD Work Phone: [facility] 11-01-2021 08:41-0400 Heart rate 75 /min Dante Kim MD Work Phone: [facility] 11-01-2021 08:41-0400 Respiratory rate 16 /min Dante Kim MD Work Phone: [facility] 11-01-2021 08:41-0400 SaO2% (BldA) [Mass fraction] 97 % Dante Kim MD Work Phone: [facility] 11-01-2021 08:41-0400 Systolic blood pressure 112 mm[Hg] Dante Kim MD Work Phone: [facility] 10-31-2021 19:13-0400 Body height 177.8 cm Dante Kim MD Work Phone: [facility] 10-31-2021 19:13-0400 Body mass index (BMI) [Ratio] 27.26 kg/m2 Dante Kim MD Work Phone: [facility] 10-31-2021 19:13-0400 Body temperature 98.49 [degF] Dante Kim MD Work Phone: [facility] 10-31-2021 19:13-0400 Body weight 86.18 kg Dante Kim MD Work Phone: [facility] 10-29-2021 07:38-0400 Body temperature 97.81 [degF] Lisa Michelle DO Work Phone: [facility] 10-29-2021 07:38-0400 Diastolic blood pressure 79 mm[Hg] Lisa Michelle DO Work Phone: [facility] 06-25-2022 07:38-0400 Heart rate 80 /min Lisa Michelle DO Work Phone: [facility] 10-29-2021 07:38-0400 Respiratory rate 18 /min Lisa Michelle DO Work Phone: [facility] 10-29-2021 07:38-0400 SaO2% (BldA) [Mass fraction] 96 % Lisa Michelle DO Work Phone: [facility] 10-29-2021 07:38-0400 Systolic blood pressure 123 mm[Hg] Lisa Michelle DO Work Phone: [facility] 10-25-2021 13:55-0400 Body height 170.2 cm Lisa Michelle DO Work Phone: [facility] 10-21-2021 00:57-0400 Body mass index (BMI) [Ratio] 37.58 kg/m2 Lisa Michelle DO Work Phone: [facility] 10-21-2021 00:57-0400 Body weight 108.86 kg Lisa Michelle DO Work Phone: [facility] 07-13-2020 13:21-0500 BMI (Body Mass Index) 40.47 kg/m2 Monika Staley [facility] Work Phone: 07-13-2020 13:21-0500 Body Temperature 98 [degF] Monika Staley [facility] Work Phone: 07-13-2020 13:21-0500 Body weight 124.31 kg Monika Staley [facility] Work Phone: 07-13-2020 13:21-0500 BP Diastolic 78 mm[Hg] Monika Staley [facility] Work Phone: 07-13-2020 13:21-0500 BP Systolic 138 mm[Hg] Monika Staley [facility] Work Phone: 07-13-2020 13:21-0500 BSA (Body Surface Area) 2.36 m2 Monika Staley [facility] Work Phone: 04-13-2020 15:33-0500 BMI (Body Mass Index) 40.32 kg/m2 Wingblayne Ritter [facility] Work Phone: 04-13-2020 15:33-0500 Body weight 123.83 kg Wingblayne Ritter [facility] Work Phone: 04-13-2020 15:33-0500 BP Diastolic 82 mm[Hg] Wing Ritter [facility] Work Phone: Comment on above: Location: [place]; Position: Sitting 04-13-2020 15:33-0500 BP Systolic 145 mm[Hg] Wing Ritter [facility] Work Phone: Comment on above: Location: [place]; Position: Sitting 04-13-2020 15:33-0500 BSA (Body Surface Area) 2.36 m2 Wingblayne Ritter [facility] Work Phone: 04-13-2020 15:33-0500 Height 175.26 cm Wingblayne Ritter [facility] Work Phone: 04-13-2020 15:33-0500 Pulse (Heart Rate) 98 /min [facility] Work Phone: 04-13-2020 15:33-0500 Pulse Oximetry 98 % [facility] Work Phone: Comment on above: Source: 04-13-2020 15:33-0500 0 1 [facility] Work Phone: Comment on above: Pain Scale 01-20-2020 16:39-0400 Body height 175.26 cm Monika Staley MD [facility] [address] [place] Work Phone: 01-20-2020 16:39-0400 Body mass index (BMI) [Ratio] 39.28 kg/m2 Monika Staley MD FX-Afyilwgpej-Lgx russ 140 [place] Work Phone: 01-20-2020 16:39-0400 Body surface area Derived from formula 2.33 m2 Monika Staley MD RU-Dckpkidhxl-Kxr russ 140 [place] Work Phone: 01-20-2020 16:39-0400 Body weight 120.66 kg Monika Staley MD -Cardiolog y-Med [facility] 140 [place] Work Phone: 01-20-2020 16:39-0400 Diastolic blood pressure 84 mm[Hg] Monika Staley MD TR-Htzhvwbazv-Ixc russ 140 [place] Work Phone: Comment on above: Location: [place]; Position: Sitting 01-20-2020 16:39-0400 Heart rate 80 /min Monika Staley MD -Cardiolog y-Med [facility] 140 [place] Work Phone: 01-20-2020 16:39-0400 SaO2% (BldA) [Mass fraction] 100 % Monika Staley MD XR-Qzbtauyyga-Ynf russ 140 [place] Work Phone: Comment on above: Source: 01-20-2020 16:39-0400 Systolic blood pressure 144 mm[Hg] Monika Staley MD HC-Bzghwbxzwn-Bdf russ 140 [place] Work Phone: Comment on above: Location: [place]; Position: Sitting 11-06-2019 15:29-0400 BMI (Body Mass Index) 38.31 kg/m2 Monika Staley [facility] Work Phone: 11-06-2019 15:29-0400 Body Temperature 97.6 [degF] Monika Staley [facility] Work Phone: 11-06-2019 15:29-0400 Body weight 117.66 kg Monika Staley [facility] Work Phone: 11-06-2019 15:29-0400 BP Diastolic 62 mm[Hg] [facility] Work Phone: 11-06-2019 15:29-0400 BP Systolic 140 mm[Hg] Monika Staley [facility] Work Phone: 11-06-2019 15:29-0400 BSA (Body Surface Area) 2.31 m2 Monika Staley [facility] Work Phone: 11-06-2019 15:29-0400 Height 175.26 cm Monika Staley [facility] Work Phone: Encounters Encounter Date Encounter Type Care Provider Facility Start: 03-12-2025 ambulatory Mahaveer kka flash OLS Facility:[facility] Start: 03-11-2025 ambulatory Carlos Quickros OLS Faci lity:[facility] Start: 03-09-2025 [facility] Start: 03-05-2025 ambulatory Monika Staley Facili ty:[facility] Start: 03-02-2025 ambulatory Carlos Cavazos OLS Faci lity:[facility] Start: 02-[facility] Start: 02-23-2025 [facility] Start: 02-19-2025 [facility] Start: 02-16-2025 End: 02-16-2025 [facility] Start: 02-12-2025 Registered Referred Karon ReederAlsea [employer] Start: 02-12-2025 End: 02-12-2025 [facility] Facility[facility] Start: 02-09-2025 [facility]istered [facility] Start: 02-09-2025 ambulatory Carlos NOVAK Faci lity:[facility] Start: 02-05-2025 Registered Referred Karon Mcclain [facility] [employer] Start: 02-05-2025 End: 02-05-2025 ambulatory Mahaveer Mukkamalla OLS Facility:[facility] Start: 02-02-2025 Registered Referred Karon casillas MD -[facility] [employer] Start: 02-02-2025 End: 02-02-2025 ambulatory Mahaveer Mukkamalla OLS Facility:[facility] Start: 01-29-2025 Registered Referred Karon casillas MD -[facility] [employer] Start: 01-29-2025 End: 01-29-2025 ambulatory Mahaveer Mukkamalla OLS Facility:[facility] Start: 01-26-2025 Registered Referred Karon ReederAlsea [employer] Start: 01-26-2025 End: 01-26-2025 [facility] Start: 01-22-2025 Registered Referred Karon ReederAlsea [employer] Start: 01-22-2025 End: 01-22-2025 ambulatory Carlaaveer Davidelisamalla OLS Facility:[facility] Start: 01-19-2025 Registered Referred Carlos Reeder [facility] [employer] Start: 01-19-2025 End: 01-19-2025 ambulatory Carlos Cavazos OLS Facility:[facility] Start: 01-15-2025 Registered Referred Karon ReederAlsea [employer] Start: 01-15-2025 End: 01-15-2025 ambulatory Carlaaveer Davidkkamalla OLS Facility:[facility] Start: 01-12-2025 Registered Referred Karon ReederAlsea [employer] Start: 01-12-2025 End: 01-12-2025 ambulatory Mahaveer Mukkamalla OLS Facility:[facility] Start: 01-08-2025 Registered Referred Karon ReederAlsea [employer] Start: 01-08-2025 End: 01-08-2025 ambulatory Mahaveer Mukkamalla OLS Facility:[facility] Start: 01-06-2025 Registered Referred Karon casillas MD -[facility] [employer] Start: 01-06-2025 End: 01-06-2025 ambulatory Carlaamber Nubiamarlenegiovanny OLS Facility:[facility] Start: 01-01-2025 End: 01-01-[address] Monika Staley MD Work Phone: -[facility] [employer] Start: 01-01-2025 End: 01-01-2025 Departed Referred Karon Corrales MD -[facility] [employer] Start: 01-01-2025 Registered Referred Karon casillas MD -[facility] [employer] Start: 01-01-2025 End: 01-01-2025 ambulatory Carlamaber Davidelismingmarlenegiovanny OLS Facility:[facility] Start: 12-29-2024 Registered Referred Carlos Cavazos - [facility] [employer] Start: 12-29-2024 End: 12-29-2024 ambulatory Carlos Cavazos OLS Facility:[facility] Start: 12-26-2024 End: 12-26-[address] Monika Staley MD Work Phone: -[facility] [employer] Start: 12-26-2024 End: 12-26-2024 Departed Referred Karon Corrales MD -[facility] [employer] Start: 12-26-2024 Registered Referred Karon casillas MD -[facility] [employer] Start: 12-26-2024 End: 12-26-2024 ambulatory Carlaraynoe Delacruzmarlenegiovanny OLS Facility:[facility] Start: 12-25-2024 Registered Referred Karon casillas MD -[facility] [employer] Start: 12-24-2024 End: 12-25-2024 ambulatory Carlaraynoe Delacruzmarlenea OLS Facility:[facility] Start: 12-24-2024 Registered Referred Carlos Cavazos - [facility] [employer] Start: 12-22-2024 ambulatory Carlaraynoe Knowles flash OLS Facility:[facility] Start: 12-22-2024 Registered Referred Karon casillas MD -[facility] [employer] Start: 12-18-2024 Registered Referred Karon casillas MD -[facility] [employer] Start: 12-18-2024 End: 12-18-2024 ambulatory Carlaraynoe Delacruzlla OLS Facility:[facility] Start: 12-15-2024 [facility] Start: 12-15-2024 Registered Referred Karon casillas MD -[facility] [employer] Start: 12-11-2024 Registered Referred Carlos Cavazos - [employer] Start: 12-11-2024 End: 12-11-2024 ambulatory Carlos NOVAK Facility:[facility] Start: 12-08-2024 Registered Referred Karon casillas MD -[facility] [employer] Start: 12-08-2024 End: 12-08-2024 [facility] Start: 12-04-2024 Registered Referred Karon casillas MD -[facility] [employer] Start: 12-04-2024 End: 12-04-2024 [facility] Start: 12-02-2024 [facility] Start: 12-02-2024 Registered Referred Karon ReederAlsea [employer] Start: 12-01-2024 ambulatory Carlos NOVAK Faci lity:[facility] Start: 12-01-2024 Registered Referred Carlos Lópezsaros - [employer] Start: 11-28-2024 Registered Referred Carlos Cavazos - [employer] Start: 11-28-2024 End: 11-28-2024 ambulatory Carlos Lópezsaviri OLS Facility:[facility] Start: 11-27-2024 Registered Referred Karon casillas MD -[facility] [employer] Start: 11-27-2024 End: 11-27-2024 [facility] Start: 11-24-2024 ambulatory Shiela Luís Facili ty:[facility] Start: 11-24-2024 Registered Referred Karon casillas MD -[facility] [employer] Start: 11-20-2024 Registered Referred Karon casillas MD -[facility] [employer] Start: 11-20-2024 End: 11-20-2024 ambulatory Shiela Luís Facility:[facility] Start: 11-17-2024 ambulatory Shiela Luís Facili ty:[facility] Start: 11-17-2024 Registered Referred Karon casillas MD -[facility] [employer] Start: 11-13-2024 ambulatory Shiela Luís Facili ty:[facility] Start: 11-13-2024 Registered Referred Karon casillas MD -[employer] Start: 11-10-2024 [facility] Facility[facility] Start: 11-10-2024 Registered Referred Karon casillas MD -[facility] [employer] Start: 11-06-2024 Registered Referred Karon casillas MD -[facility] [employer] Start: 11-06-2024 End: 11-06-2024 ambulatory Karon Delacruzshellie NOVAK Facility:[facility] Start: 11-03-2024 End: 11-03-[address] Monika Staley MD Work Phone: -[employer] [employer] Start: 11-03-2024 End: 11-03-2024 Departed Referred Carlos Cavazos -[facility] [employer] Start: 11-03-2024 Registered Referred Carlos Cavazos - [employer] Start: 11-03-2024 End: 11-03-2024 ambulatory Carlos Cavazos OLS Facility:[facility] Start: 10-30-2024 End: 10-30-[address] Monika Staley MD Work Phone: -[employer] [employer] Start: 10-30-2024 End: 10-30-2024 Departed Referred Karon Corrales MD -[facility] [employer] Start: 10-30-2024 Registered Referred Karon casillas MD -[facility] [employer] Start: 10-30-2024 End: 10-30-2024 ambulatory Shiela Luís Facility:[facility] Start: 10-27-2024 Registered Referred Karon casillas MD -[facility] [employer] Start: 10-27-2024 End: 10-27-2024 ambulatory Karon NOVAK Facility:[facility] Start: 10-23-2024 Registered Referred Karon casillas MD -[facility] [employer] Start: 10-23-2024 End: 10-23-2024 ambulatory Monika Horner Luís Facility:[facility] Start: 10-20-2024 End: 10-20-[address] Monika Staley MD Work Phone: -[employer] [employer] Start: 10-20-2024 End: 10-20-2024 Departed Referred Karon Corrales MD -[facility] [employer] Start: 10-20-2024 Registered Referred Karon casillas MD -[facility] [employer] Start: 10-20-2024 End: 10-20-2024 ambulatory Karon NOVAK Facility:[facility] Start: 10-16-2024 ambulatory Monika Staley Facili ty:[facility] Start: 10-16-2024 Registered Referred Karon casillas MD -[facility] [employer] Start: 10-13-2024 ambulatory Carlos NOVAK Faci lity:[facility] Start: 10-13-2024 Registered Referred Carlos Cavazos - [facility] [employer] Start: 10-09-2024 ambulatory Monika Staley Facili ty:[facility] Start: 10-09-2024 Registered Referred Karon casillas MD -[employer] Start: 10-06-2024 ambulatory Carlos NOVAK Faci lity:[facility] Start: 10-06-2024 Registered Referred Carlos Cavazos - [employer] Start: 10-02-2024 ambulatory Monika Carlos ty:[facility] Start: 10-02-2024 Registered Referred Karon casillas MD -[employer] [employer] Start: 09-30-2024 End: 09-30-[address] Monika Staley MD Work Phone: [facility] Work Phone: Start: 09-30-2024 End: 09-30-2024 Departed Referred Karon Corrales MD -[facility] [employer] Start: 09-30-2024 Registered Referred Karon casillas MD -[facility] [employer] Start: 09-30-2024 End: 09-30-2024 ambulatory Karon NOVAK Facility:[facility] Start: 09-25-2024 ambulatory Karon NOVAK Facility:[facility] Start: 09-25-2024 Registered Referred Karon casillas MD -[facility] [employer] Start: 09-22-2024 End: 09-22-[address] Monika Staley MD Work Phone: -[facility] [employer] Start: 09-22-2024 End: 09-22-2024 Departed Referred Karon Corrales MD -[facility] [employer] Start: 09-22-2024 Registered Referred Karon casillas MD -[facility] [employer] Start: 09-22-2024 End: 09-22-2024 ambulatory Karon NOVAK Facility:[facility] Start: 09-18-2024 End: 09-18-[address] Monika Staley MD Work Phone: -[facility] [employer] Start: 09-18-2024 End: 09-18-2024 Departed Referred Mahaveer Mukkamalla MD -[facility] [employer] Start: 09-18-2024 Registered Referred Karon casillas MD -[facility] [employer] Start: 09-18-2024 End: 09-18-2024 ambulatory Karon Corrales OLS Facility:[facility] Start: 09-15-2024 End: 09-15-[address] Monika Staley MD Work Phone: [facility] Work Phone: Start: 09-15-2024 End: 09-15-2024 Departed Referred Carlos Cavazos -[facility] [employer] Start: 09-15-2024 Registered Referred Carlos Cavazos - [facility] [employer] Start: 09-15-2024 End: 09-15-2024 ambulatory Carlos NOVAK Facility:[facility] Start: 09-11-[facility] Start: 09-11-2024 Registered Referred Karon casillas MD -[facility] [employer] Start: 09-08-2024 End: 09-08-[address] Monika Staley MD Work Phone: [facility] Work Phone: Start: 09-08-2024 End: 09-08-2024 Departed Referred Karon Corrales MD -[facility] [employer] Start: 09-08-2024 Registered Referred Karon casillas MD -[facility] [employer] Start: 09-08-2024 End: 09-08-2024 ambulatory Karon NOVAK Facility:[facility] Start: 09-04-2024 End: 09-04-2024 Departed Referred Carlos Cavazos -[facility] [employer] Start: 09-04-2024 Registered Referred Carlos Cavazos - [facility] [employer] Start: 09-04-2024 End: 09-04-2024 ambulatory Carlos NOVAK Facility:[facility] Start: 09-01-2024 End: 09-01-[address] Monika Staley MD Work Phone: [facility] Work Phone: Start: 09-01-2024 End: 09-01-2024 Departed Referred Carlos Cavazos -[facility] [employer] Start: 09-01-2024 Registered Referred Carlos Cavazos - [facility] [employer] Start: 09-01-2024 End: 09-01-2024 ambulatory Carlos Maribelkameron OLS Facility:[facility] Start: 08-28-2024 End: 08-28-[address] Monika Staley MD Work Phone: [facility] Work Phone: Start: 08-28-2024 End: 08-28-2024 Departed Referred Carlos Maribelkameron -[facility] [employer] Start: 08-28-2024 Registered Referred Carlos Kenny - [facility] [employer] Start: 08-28-2024 End: 08-28-2024 ambulatory Carlos Maribelkameron OLS Facility:[facility] Start: 08-25-2024 End: 08-25-[address] Monika Staley MD Work Phone: [facility] Work Phone: Start: 08-25-2024 End: 08-25-2024 Departed Referred Karon Corrales MD -[facility] [employer] Start: 08-25-2024 Registered Referred Karon casillas MD -[facility] [employer] Start: 08-25-2024 End: 08-25-2024 ambulatory Karon NOVAK Facility:[facility] Start: 08-21-2024 End: 08-21-[address] Monika Staley MD Work Phone: [facility] Work Phone: Start: 08-21-2024 End: 08-21-2024 Departed Referred Karon Corrales MD -[facility] [employer] Start: 08-21-2024 Registered Referred Karon ReederAlsea [employer] Start: 08-21-2024 End: 08-21-2024 ambulatory Karon NOVAK Facility:[facility] Start: 08-18-2024 End: 08-18-[address] Monika Staley MD Work Phone: [facility] Work Phone: Start: 08-18-2024 End: 08-18-2024 Departed Referred Karon Corrales MD -[facility] [employer] Start: 08-18-2024 Registered Referred Karon ReederAlsea [employer] Start: 08-18-2024 End: 08-18-2024 ambulatory Karon NOVAK Facility:[facility] Start: 08-14-2024 End: 08-14-[address] Monika Staley MD Work Phone: [facility] Work Phone: Start: 08-14-2024 End: 08-14-2024 Departed Referred Karon Corrales MD -[facility] [employer] Start: 08-14-2024 Registered Referred Karon casillas MD -[facility] [employer] Start: 08-14-2024 End: 08-14-2024 ambulatory Karon NOVAK Facility:[facility] Start: 08-11-2024 End: 08-11-2024 Departed Referred Karon Corrales MD -[facility] [employer] Start: 08-11-2024 Registered Referred Karon casillas MD -[facility] [employer] Start: 08-11-2024 End: 08-11-2024 ambulatory Karon NOVAK Facility:[facility] Start: 08-07-2024 End: 08-07-2024 Departed Referred Carlos Cavazos -[facility] [employer] Start: 08-07-2024 Registered Referred Carlos Reeder [facility] [employer] Start: 08-07-2024 End: 08-07-2024 ambulatory Carlos NOVAK Facility:[facility] Start: 08-04-2024 End: 08-04-[address] Monika Staley MD Work Phone: [facility] Work Phone: Start: 08-04-2024 End: 08-04-2024 Departed Referred Carlos Cavazos -[facility] [employer] Start: 08-04-2024 Registered Referred Carlos Cavazos - [employer] [employer] Start: 08-04-2024 End: 08-04-2024 ambulatory Carlos NOVAK Facility:[facility] Start: 07-31-2024 End: 07-31-[address] Monika Staley MD Work Phone: [facility] Work Phone: Start: 07-31-2024 End: 07-31-2024 Departed Referred Karon Corrales MD -[facility] [employer] Start: 07-31-2024 Registered Referred Karon casillas MD -[facility] [employer] Start: 07-31-2024 End: 07-31-2024 ambulatory Karon NOVAK Facility:[facility] Start: 07-28-2024 End: 07-28-[address] Monika Staley MD Work Phone: [facility] Work Phone: Start: 07-28-2024 End: 07-28-2024 Departed Referred Karon Corrales MD -[facility] [employer] Start: 07-28-2024 Registered Referred Karon casillas MD -[facility] [employer] Start: 07-28-2024 End: 07-28-2024 ambulatory Karon NOVAK Facility:[facility] Start: 07-25-2024 End: 07-25-[address] Monika Staley MD Work Phone: [facility] Work Phone: Start: 07-25-2024 End: 07-25-2024 Departed Referred Carlos Cavazos -[facility] [employer] Start: 07-25-2024 Registered Referred Carlos Cavazos - [facility] [employer] Start: 07-24-2024 End: 07-25-[address] Monika Staley MD Work Phone: [facility] Work Phone: Start: 07-24-2024 End: 07-24-2024 Departed Referred Karon Corrales MD -[facility] [employer] Start: 07-24-2024 Registered Referred Karon casillas MD -[facility] [employer] Start: 07-24-2024 End: 07-24-2024 ambulatory Karon NOVAK Facility:[facility] Start: 07-21-2024 End: 07-21-[address] Monika Staley MD Work Phone: [facility] Work Phone: Start: 07-21-2024 End: 07-21-2024 Departed Referred Karon Corrales MD -[facility] [employer] Start: 07-21-2024 Registered Referred Karon casillas MD -[facility] [employer] Start: 07-21-2024 End: 07-21-2024 ambulatory Karon NOVAK Facility:[facility] Start: 07-17-2024 End: 07-17-[address] Monika Staley MD Work Phone: [facility] Work Phone: Start: 07-17-2024 End: 07-17-2024 Departed Referred Karon Corrales MD -[facility] [employer] Start: 07-17-2024 Registered Referred Karon casillas MD -[facility] [employer] Start: 07-17-2024 End: 07-17-2024 ambulatory Karon NOVAK Facility:[facility] Start: 07-14-2024 End: 07-14-[address] Monika Staley MD Work Phone: [facility] Work Phone: Start: 07-14-2024 End: 07-14-2024 Departed Referred Carlos Cavazos -[facility] [employer] Start: 07-14-2024 Registered Referred Carlos Maribelsaviri - [facility] [employer] Start: 07-14-2024 End: 07-14-2024 ambulatory Carlos Maribelkameron OLS Facility:[facility] Start: 07-11-2024 End: 07-11-[address] Monika Staley MD Work Phone: [facility] Work Phone: Start: 07-11-2024 End: 07-11-2024 Departed Referred Carlos Maribelkameron -[facility] [employer] Start: 07-11-2024 Registered Referred Carlos Kenny - [facility] [employer] Start: 07-11-2024 End: 07-11-2024 ambulatory Carlos Maribelkameron OLS Facility:[facility] Start: 07-07-2024 End: 07-07-[address] Monika Staley MD Work Phone: [facility] Work Phone: Start: 07-07-2024 End: 07-07-2024 Departed Referred Karon Corrales MD -[facility] [employer] Start: 07-07-2024 Registered Referred [facility] -[facility] [employer] Start: 07-07-2024 End: 07-07-2024 ambulatory Karon NOVAK Facility:[facility] Start: 07-03-2024 End: 07-03-[address] Monika Staley MD Work Phone: [facility] Work Phone: Start: 07-03-2024 End: 07-03-2024 Departed Referred Kvng Crisostomo MD -[facility] [employer] Start: 07-03-2024 Registered Referred Kvng Crisostomo MD -[facility] [employer] Start: 07-03-2024 End: 07-03-2024 ambulatory Kvng NOVAK Facility:[facility] Start: 06-30-2024 End: 06-30-[address] Monika Staley MD Work Phone: [facility] Work Phone: Start: 06-30-2024 End: 06-30-2024 Departed Referred Kvng Crisostomo MD -[facility] [employer] Start: 06-30-2024 Registered Referred Kvng Crisostomo MD -[facility] [employer] Start: 06-30-2024 End: 06-30-2024 ambulatory Kvng NOVAK Facility:[facility] Start: 06-26-2024 ambulatory Kvng NOVAK Fac ility:[facility] Start: 06-26-2024 Registered Referred Kvng Crisostomo MD -[facility] [employer] Start: 06-23-2024 End: 06-23-[address] Monika Staley MD Work Phone: [facility] Work Phone: Start: 06-23-2024 End: 06-23-2024 Departed Referred Carlos Cavazos -[facility] [employer] Start: 06-23-2024 Registered Referred Carlos Reeder [facility] [employer] Start: 06-23-2024 End: 06-23-2024 ambulatory Carlos NOVAK Facility:[facility] Start: 06-19-2024 End: 06-19-[address] Monika Staley MD Work Phone: [facility] Work Phone: Start: 06-19-2024 End: 06-19-2024 Departed Referred Kvng Crisostomo MD -[facility] [employer] Start: 06-19-2024 Registered Referred Kvng Crisostomo MD -[facility] [employer] Start: 06-19-2024 End: 06-19-2024 ambulatory Kvng NOVAK Facility:[facility] Start: 06-16-2024 End: 06-16-[address] Monika Staley MD Work Phone: [facility] Work Phone: Start: 06-16-2024 End: 06-16-2024 Departed Referred Kvng Crisostomo MD -[facility] [employer] Start: 06-16-2024 Registered Referred Kvng Crisostomo MD -[facility] [employer] Start: 06-16-2024 End: 06-16-2024 ambulatory Kvng NOVAK Facility:[facility] Start: 06-12-2024 End: 06-12-[address] Monika Staley MD Work Phone: [facility] Work Phone: Start: 06-12-2024 End: 06-12-2024 Departed Referred Kvng Crisostomo MD -[facility] [employer] Start: 06-12-2024 Registered Referred Kvng Crisostomo MD -[facility] [employer] Start: 06-12-2024 End: 06-12-2024 ambulatory Kvng NOVAK Facility:[facility] Start: 06-09-2024 End: 06-09-[address] Monika Staley MD Work Phone: [facility] Work Phone: Start: 06-09-2024 End: 06-09-2024 Departed Referred Carlos Cavazos -[facility] [employer] Start: 06-09-2024 Registered Referred Carlos Cavazos - [facility] [employer] Start: 06-09-2024 End: 06-09-2024 ambulatory Carlos NOVAK Facility:[facility] Start: 06-05-2024 End: 06-05-[address] Monika Staley MD Work Phone: [facility] Work Phone: Start: 06-05-2024 End: 06-05-2024 Departed Referred Kvng Crisostomo MD -[facility] [employer] Start: 06-05-2024 End: 06-05-2024 ambulatory Kvng NOVAK Facility:[facility] Start: 06-02-2024 End: 06-02-[address] Monika Staley MD Work Phone: [facility] Work Phone: Start: 06-02-2024 End: 06-02-2024 Departed Referred Kvng Crisostomo MD -[facility] [employer] Start: 06-02-2024 Registered Referred Kvng Crisostomo MD -[facility] [employer] Start: 06-02-2024 End: 06-02-2024 ambulatory Kvng NOVAK Facility:[facility] Start: 05-29-2024 End: 05-29-[address] Monika Staley MD Work Phone: [facility] Work Phone: Start: 05-29-2024 End: 05-29-2024 Departed Referred Kvng Crisostomo MD -[facility] [employer] Start: 05-29-2024 Registered Referred Kvng Crisostomo MD -[facility] [employer] Start: 05-29-2024 End: 05-29-2024 ambulatory Kvng NOVAK Facility:[facility] Start: 05-26-2024 End: 05-26-[address] Monika Staley MD Work Phone: [facility] Work Phone: Start: 05-26-2024 End: 05-26-2024 Departed Referred Carlos [facility] [employer] Start: 05-26-2024 Registered Referred Carlos Campbelluary [employer] Start: 05-26-2024 End: 05-26-2024 ambulatory Monika Staley Facility:[facility] Start: 05-22-2024 ambulatory Kvng NOVAK Fac ility:[facility] Start: 05-22-2024 Registered Referred Kvng Crisostomo MD -[facility] [employer] Start: 05-20-2024 End: 05-20-2024 Departed Referred Kvng Crisostomo MD -[facility] [employer] Start: 05-19-2024 End: 05-20-2024 ambulatory Kvng NOVAK Facility:[facility] Start: 05-19-2024 Registered Referred Kvng Crisostomo MD -[facility] [employer] Start: 05-15-2024 End: 05-15-2024 Departed Referred Kvng Crisostomo MD -[facility] [employer] Start: 05-15-2024 End: 05-15-2024 ambulatory Kvng NOVAK Facility:[facility] Start: 05-12-2024 End: 05-12-2024 Departed Referred Carlos Cavazos -[facility] [employer] Start: 05-12-2024 End: 05-12-2024 ambulatory Carlos NOVAK Facility:[facility] Start: 05-09-2024 End: 05-09-2024 Departed Referred Kvng Crisostomo MD -[facility] [employer] Start: 05-09-2024 End: 05-09-2024 ambulatory Kvng NOVAK Facility:[facility] Start: 05-08-2024 End: 05-08-2024 Departed Referred Kvng Crisostomo MD -[facility] [employer] Start: 05-08-2024 End: 05-08-2024 ambulatory Kvng NOVAK Facility:[facility] Start: 05-05-2024 End: 05-05-2024 Departed Referred Kvng Crisostomo MD -[facility] [employer] Start: 05-05-2024 End: 05-05-2024 ambulatory Kvng NOVAK Facility:[facility] Start: 05-01-2024 End: 05-01-2024 Departed Referred Kvng Crisostomo MD -[facility] [employer] Start: 05-01-2024 End: 05-01-2024 ambulatory Kvng NOVAK Facility:[facility] Start: 04-28-2024 End: 04-28-2024 Departed Referred Carlos Cavazos -[facility] [employer] Start: 04-28-2024 End: 04-28-2024 ambulatory Carlos NOVAK Facility:[facility] Start: 04-24-2024 End: 04-24-2024 Departed Referred Kvng Crisostomo MD -[facility] [employer] Start: 04-24-2024 End: 04-24-2024 ambulatory Kvng NOVAK Facility:[facility] Start: 04-21-2024 End: 04-21-2024 Departed Referred Carlos Cavazos -[facility] [employer] Start: 04-21-2024 End: 04-21-2024 ambulatory Carlos NOVAK Facility:[facility] Start: 04-17-2024 ambulatory Kvng Crisostomo OLS Fac ility:[facility] Start: 04-17-2024 Registered Referred Kvng Crisostomo MD -[facility] [employer] Start: 04-14-2024 ambulatory Kvng NOVAK Fac ility:[facility] Start: 04-14-2024 Registered Referred Kvng Crisostomo MD -[facility] [employer] Start: 04-10-2024 End: 04-10-2024 Departed Referred Kvng Crisostomo MD -[facility] [employer] Start: 04-10-2024 End: 04-10-2024 ambulatory Kvng NOVAK Facility:[facility] Start: 04-07-2024 End: 04-07-2024 Departed Referred Carlos Cavazos -[facility] [employer] Start: 04-07-2024 End: 04-07-2024 ambulatory Carlos NOVAK Facility:[facility] Start: 04-04-2024 ambulatory Kvng NOVAK Fac ility:[facility] Start: 04-04-2024 Registered Referred Kvng Crisostomo MD -[facility] [employer] Start: 03-31-2024 End: 03-31-2024 Departed Referred Carlos Cavazos -[facility] [employer] Start: 03-31-2024 End: 03-31-2024 ambulatory Carlos NOVAK Facility:[facility] Start: 03-27-2024 End: 03-27-2024 [facility] [employer] Start: 03-27-2024 End: 03-27-2024 ambulatory [facility] Facility[facility] Start: 03-24-2024 End: 03-24-2024 Departed Referred Kvng Crisostomo MD -[facility] [employer] Start: 03-24-2024 End: 03-24-2024 ambulatory Kvng NOVAK Facility:[facility] Start: 03-20-2024 End: 03-20-2024 Departed Referred [facility] [employer] Start: 03-20-2024 End: 03-20-2024 ambulatory [facility] Facility[facility] Start: 03-19-2024 End: 03-19-2024 Departed Referred Kvng Crisostomo MD -[facility] [employer] Start: 03-19-2024 End: 03-19-2024 ambulatory Kvng NOVAK Facility:[facility] Start: 03-18-2024 End: 03-18-2024 Departed Referred [facility] [employer] Start: 03-18-2024 End: 03-18-2024 ambulatory [facility] Facility[facility] Start: 03-17-2024 End: 03-17-2024 Departed Referred [facility] [employer] Start: 03-17-2024 End: 03-17-2024 ambulatory [facility] Facility[facility] Start: 03-14-2024 End: 03-14-2024 Departed Referred Carlos Cavazos -[facility] [employer] Start: 03-14-2024 End: 03-14-2024 ambulatory Carlos NOVAK Facility:[facility] Start: 03-13-2024 End: 03-13-2024 Departed Referred [facility] [employer] Start: 03-13-2024 End: 03-13-2024 ambulatory [facility] Facility:[facility] Start: 09-13-2023 End: 09-13-2023 ambulatory [facility] Start: 09-13-2023 End: 09-13-2023 Office outpatient visit 25 minutes Rebecca Buck MD Work Phone: [facility] Comment on above: Left flank pain (Christina magui Dx); BPH with urinary obstruction; History of kidney stones Start: 09-06-2023 End: 09-07-2023 ambulatory [facility] Start: 09-06-2023 End: 09-06-2023 Subsequent hospital visit by physician Rebecca Buck MD Work Phone: [facility] Imaging Comment on above: Left flank pain; Calculus of ureter Start: 08-31-2023 ambulatory Eloise Stern RN [facility] Clinical Communication Start: 08-31-2023 Patient encounter procedure Eloise Stern RN [facility] Clinical Communication Start: 08-21-2023 Telephone encounter Rebecca Buck MD Work Phone: [facility] Clinical Communication Comment on above: CT appt Boaz advice Start: 08-21-2023 Registered Referred [facility] [employer] Start: 08-13-2023 End: 08-13-2023 ambulatory [facility] Start: 08-13-2023 End: 08-13-2023 Office outpatient new 45 minutes Rebecca Buck MD Work Phone: [facility] Comment on above: Left flank pain (Christina magui Dx); Calculus of ureter; Disease of prostate; BPH with urinary obstruction Start: 08-03-2023 End: 08-03-2023 ambulatory [facility] Work Phone: Start: 08-03-2023 End: 08-03-2023 Departed Referred [facility] [employer] Start: 07-20-2023 End: 07-20-2023 ambulatory [facility] Work Phone: Start: 07-20-2023 End: 07-20-2023 Departed Referred [facility] Start: 07-20-2023 Registered Referred [facility] [employer] Start: 07-18-2023 End: 07-18-2023 ambulatory [facility] Work Phone: Start: 07-18-2023 End: 07-18-2023 [facility] Start: 07-18-2023 [facility] Start: 07-16-2023 End: 07-16-2023 ambulatory [facility] Work Phone: Start: 07-16-2023 End: 07-16-2023 [facility] Start: 07-16-2023 [facility] Start: 07-13-2023 End: 07-13-2023 ambulatory [facility] Work Phone: Start: 07-13-2023 End: 07-13-2023 [facility] Start: 07-13-2023 [facility] Start: 07-12-2023 End: 07-12-2023 ambulatory [facility] Work Phone: Start: 07-12-2023 End: 07-12-2023 [facility] Start: 07-12-2023 [facility] Start: 07-05-2023 End: 07-05-2023 ambulatory [facility] Work Phone: Start: 07-05-2023 End: 07-05-2023 [facility] [facility] Start: 07-05-2023 [facility] [employer] [facility] Start: 07-02-2023 Registered Referred [facility] [employer] Start: 06-28-2023 End: 06-28-2023 ambulatory [facility] Work Phone: Start: 06-28-2023 End: 06-28-2023 [facility] [facility] Start: 06-28-2023 [facility] [employer] [facility] Start: 06-25-2023 Telephone encounter Rebecca Buck MD Work Phone: [facility] Start: 06-25-2023 End: 06-25-2023 ambulatory [facility] Work Phone: Start: 06-25-2023 End: 06-25-2023 [facility] Start: 06-25-2023 [facility] Start: 06-21-2023 End: 06-21-2023 ambulatory [facility] Work Phone: Start: 06-21-2023 End: 06-21-2023 [facility] Start: 06-21-2023 [facility] Start: 06-13-2023 End: 06-13-2023 ambulatory [facility] Work Phone: Start: 06-13-2023 End: 06-13-2023 [facility] Start: 06-06-2023 End: 06-06-2023 ambulatory [facility] Work Phone: Start: 06-06-2023 End: 06-06-2023 [facility] [facility] Start: 06-06-2023 [facility] [employer] [facility] Start: 05-23-2023 End: 05-23-2023 ambulatory [facility] Work Phone: Start: 05-23-2023 End: 05-23-2023 [facility] [facility] Start: 05-09-2023 End: 05-09-2023 [facility] Start: 05-09-2023 [facility] Start: 04-23-2023 End: 04-23-2023 [facility] [facility] Start: 04-09-2023 End: 04-09-2023 ambulatory [facility] Work Phone: Start: 04-09-2023 End: 04-09-2023 [facility] Start: 04-09-2023 [facility] Start: 04-02-2023 End: 04-02-2023 ambulatory [facility] Work Phone: Start: 04-02-2023 End: 04-02-2023 [facility] Start: 04-02-2023 [facility] [facility] Start: 03-26-2023 End: 03-26-2023 ambulatory [facility] Work Phone: Start: 03-26-2023 End: 03-26-2023 [facility] Start: 03-26-2023 [facility] [facility] Start: 03-22-2023 End: 03-22-2023 ambulatory [facility] Work Phone: Start: 03-22-2023 End: 03-22-2023 [facility] Start: 03-22-2023 [facility] [facility] Start: 03-08-2023 End: 03-08-2023 ambulatory [facility] Work Phone: Start: 03-08-2023 End: 03-08-2023 [facility] Start: 02-22-2023 End: 02-22-2023 ambulatory [facility] Work Phone: Start: 02-22-2023 End: 02-22-2023 Departed Referred [facility] [employer] Start: 02-22-2023 Registered Referred [facility] [employer] Start: 02-15-2023 End: 02-15-2023 ambulatory [facility] Work Phone: Start: 02-15-2023 End: 02-15-2023 [facility] Start: 02-15-2023 Registered [facility] Start: 02-08-2023 End: 02-08-2023 ambulatory [facility] Work Phone: Start: 02-08-2023 End: 02-08-2023 [facility] Start: 01-31-2023 End: 01-31-2023 ambulatory [facility] Work Phone: Start: 01-31-2023 End: 01-31-2023 [facility] Start: 01-31-2023 Registered [facility] Start: 01-29-2023 End: 01-29-2023 Departed [facility]erred [facility] Start: 01-29-2023 Registered [facility] Start: 01-26-2023 End: 01-26-2023 [facility] Start: 01-26-2023 Registered [facility] Start: 01-24-2023 End: 01-24-2023 Departed Referred [facility] Start: 01-24-2023 Registered [facility] Start: 01-22-2023 End: 01-22-2023 ambulatory [facility] Work Phone: Start: 01-22-2023 End: 01-22-2023 [facility] Start: 01-22-2023 [facility] Start: 01-10-2023 End: 01-10-2023 ambulatory [facility] Work Phone: Start: 01-10-2023 End: 01-10-2023 [facility] Start: 01-10-2023 [facility] Start: 12-27-2022 End: 12-27-2022 ambulatory [facility] Work Phone: Start: 12-27-2022 End: 12-27-2022 [facility] Start: 12-27-2022 [facility] Start: 12-21-2022 End: 12-21-2022 ambulatory [facility] Work Phone: Start: 12-21-2022 End: 12-21-2022 [facility] Start: 12-21-2022 [facility] Start: 12-14-2022 End: 12-14-2022 ambulatory [facility] Work Phone: Start: 12-14-2022 End: 12-14-2022 [facility] Start: 12-14-2022 [facility] Start: 12-07-2022 End: 12-07-2022 ambulatory [facility] Work Phone: Start: 12-07-2022 End: 12-07-2022 [facility] Start: 12-07-2022 [facility] Start: 11-24-2022 End: 11-24-2022 ambulatory [facility] Work Phone: Start: 11-24-2022 End: 11-24-2022 Departed Referred [facility] Start: 11-24-2022 Registered [facility] Start: 11-23-2022 End: 11-23-2022 ambulatory [facility] Work Phone: Start: 11-23-2022 End: 11-23-2022 [facility] Start: 11-23-2022 Registered [facility] Start: 11-22-2022 End: 11-22-2022 ambulatory [facility] Work Phone: Start: 11-22-2022 End: 11-22-2022 [facility] Start: 11-22-2022 [facility] Start: 11-09-2022 End: 11-09-2022 ambulatory [facility] Work Phone: Start: 11-09-2022 End: 11-09-2022 Departed [facility]erred [facility] Start: 11-09-2022 Registered [facility] Start: 10-26-2022 End: 10-26-2022 Departed Referred [facility] Start: 10-26-2022 Registered [facility] Start: 10-12-2022 End: 10-12-2022 ambulatory [facility] Work Phone: Start: 10-12-2022 End: 10-12-2022 Departed Referred [facility] Start: 10-12-2022 Registered [facility] Start: 10-05-2022 End: 10-05-2022 Departed Referred [facility] Start: 10-05-2022 Registered [facility] Start: 09-28-2022 End: 09-28-2022 ambulatory [facility] Work Phone: Start: 09-28-2022 End: 09-28-2022 Departed Referred [facility] Start: 09-14-2022 End: 09-14-2022 Departed Referred [facility] Start: 08-31-2022 End: 08-31-2022 [facility] Start: 08-31-2022 Registered [facility] Start: 08-23-2022 End: 08-23-2022 ambulatory [facility] Work Phone: Start: 08-23-2022 End: 08-23-2022 [facility] Start: 08-23-2022 Registered [facility] Start: 08-17-2022 End: 08-17-2022 ambulatory [facility] Work Phone: Start: 08-17-2022 End: 08-17-2022 [facility] Start: 08-17-2022 [facility] Start: 08-14-2022 End: 08-14-2022 ambulatory [facility] Work Phone: Start: 08-14-2022 End: 08-14-2022 Departed Referred [facility] Start: 08-14-2022 Registered [facility] Start: 07-31-2022 End: 07-31-2022 ambulatory [facility] Work Phone: Start: 07-31-2022 End: 07-31-2022 Departed Referred [facility] Start: 07-31-2022 [facility] Start: 07-24-2022 End: 07-24-2022 ambulatory [facility] Work Phone: Start: 07-24-2022 End: 07-24-2022 Departed [facility]erred [facility] Start: 07-24-2022 Registered [facility] Start: 07-20-2022 End: 07-20-2022 Departed Referred [facility] Start: 07-20-2022 Registered [facility] Start: 07-17-2022 End: 07-17-2022 [facility] Start: 07-17-2022 Registered [facility] Start: 07-11-2022 Registered [facility] Start: 07-10-2022 End: 07-10-2022 ambulatory [facility] Work Phone: Start: 07-10-2022 End: 07-10-2022 Departed Referred [facility] Start: 07-10-2022 Registered [facility] Start: 07-03-2022 End: 07-03-2022 ambulatory [facility] Work Phone: Start: 07-03-2022 End: 07-03-2022 [facility] Start: 07-03-2022 Registered [facility] Start: 06-27-2022 End: 06-27-2022 ambulatory [facility] Work Phone: Start: 06-27-2022 End: 06-27-2022 Departed Referred [facility] Start: 06-27-2022 Registered [facility] Start: 06-13-2022 End: 06-13-2022 ambulatory [facility] Work Phone: Start: 06-13-2022 End: 06-13-2022 [facility] Start: 06-13-2022 [facility] Start: 06-06-2022 End: 06-06-2022 ambulatory [facility] Work Phone: Start: 06-06-2022 End: 06-06-2022 [facility] Start: 06-06-2022 [facility] Start: 05-30-2022 End: 05-30-2022 ambulatory [facility] Work Phone: Start: 05-30-2022 End: 05-30-2022 [facility] Start: 05-30-2022 [facility] Start: 05-16-2022 End: 05-16-2022 ambulatory [facility] Work Phone: Start: 05-16-2022 End: 05-16-2022 [facility] Start: 05-16-2022 [facility] Start: 05-02-2022 End: 05-02-2022 ambulatory [facility] Work Phone: Start: 05-02-2022 End: 05-02-2022 [facility] Start: 05-02-2022 [facility] Start: 04-27-2022 End: 04-27-2022 ambulatory [facility] Work Phone: Start: 04-27-2022 End: 04-27-2022 [facility] Start: 04-27-2022 [facility] Start: 04-26-2022 End: 04-26-2022 ambulatory [facility] Work Phone: Start: 04-26-2022 End: 04-26-2022 [facility] Start: 04-11-2022 End: 04-11-2022 ambulatory [facility] Work Phone: Start: 04-11-2022 End: 04-11-2022 [facility] Start: 03-28-2022 End: 03-28-2022 [facility] Start: 03-28-2022 [facility] Start: 03-23-2022 End: 03-23-2022 [facility] Start: 03-23-2022 [facility] Start: 03-16-2022 End: 03-16-2022 ambulatory [facility] Work Phone: Start: 03-16-2022 End: 03-16-2022 [facility] Start: 03-16-2022 [facility] Start: 03-09-2022 End: 03-09-2022 ambulatory [facility] Work Phone: Start: 03-09-2022 End: 03-09-2022 [facility] Start: 03-09-2022 [facility] Start: 03-06-2022 End: 03-06-2022 ambulatory [facility] Work Phone: Start: 03-06-2022 End: 03-06-2022 [facility] Start: 03-06-2022 [facility] Start: 03-02-2022 End: 03-03-2022 Emergency department patient visit UNKNOWN PROVIDER [facility] Start: 03-02-2022 End: 03-02-2022 Emergency department patient visit Lanette Munguia DO Work Phone: [facility] Emergency Dept Comment on above: Fall, initial encoun ter (Primary Dx); Anticoagulated Start: 02-20-2022 End: 02-20-2022 Departed Referred [facility] Start: 02-20-2022 Registered Referred [facility] Start: 02-13-2022 End: 02-13-2022 ambulatory [facility] Work Phone: Start: 02-13-2022 End: 02-13-2022 Departed [facility] Start: 02-13-2022 Registered Referred [facility] Start: 02-06-2022 End: 02-06-2022 ambulatory [facility] Work Phone: Start: 02-06-2022 End: 02-06-2022 Departed [facility] Start: 02-06-2022 Registered Referred [facility] [employer] Start: 01-30-2022 End: 01-30-2022 Departed [facility] Start: 01-30-2022 Registered Referred [facility] Start: 01-26-2022 End: 01-26-2022 ambulatory [facility] Work Phone: Start: 01-26-2022 End: 01-26-2022 Departed [facility] Start: 01-26-2022 Registered Referred [facility] Start: 01-19-2022 End: 01-19-2022 ambulatory [facility] Work Phone: Start: 01-19-2022 End: 01-19-2022 Departed [facility] Start: 01-19-2022 Registered Referred [facility] [employer] Start: 01-17-2022 [facility]ulatory [facility] Start: 01-10-2022 ambulatory Eld[facility] Kenny [facility] Start: 01-10-2022 End: 01-10-2022 ambulatory [facility] Work Phone: Start: 01-10-2022 End: 01-10-2022 [facility] Start: 01-10-2022 [facility] Start: 01-06-2022 AUDIT Shiela Stua rt Work Phone: [facility] Work Phone: Start: 01-05-2022 End: 01-05-2022 [facility] Start: 01-05-2022 [facility] Start: 12-30-2021 End: 12-30-2021 [facility] Start: 12-30-2021 [facility] Start: 12-28-2021 End: 12-28-2021 ambulatory [facility] Work Phone: Start: 12-28-2021 End: 12-28-2021 [facility] Start: 12-28-2021 [facility] Start: 12-26-2021 End: 12-26-2021 ambulatory [facility] Work Phone: Start: 12-26-2021 End: 12-26-2021 [facility] Start: 12-26-2021 [facility] Start: 12-22-2021 End: 12-22-2021 ambulatory [facility] Work Phone: Start: 12-22-2021 End: 12-22-2021 [facility] Start: 12-22-2021 Registered Referred [facility] [employer] Start: 12-22-2021 End: 12-22-2021 Emergency department patient [facility] Start: 12-21-2021 End: 12-22-2021 Emergency department patient visit Sharon Olivia MD Work Phone: [facility] Emergency Dept Comment on above: Heel ulceration, lef t, with unspecified severity (HCC) (Primary Dx) Start: 12-19-2021 End: 12-19-2021 ambulatory [facility] Work Phone: Start: 12-19-2021 End: 12-19-2021 Departed [facility] [employer] Start: 12-19-2021 Registered Referred [facility] Start: 12-12-2021 End: 12-12-2021 ambulatory [facility] Work Phone: Start: 12-12-2021 End: 12-12-[address] [facility] Start: 12-12-2021 [facility] Start: 12-08-2021 End: 12-08-2021 ambulatory [facility] Work Phone: Start: 12-08-2021 End: 12-08-[address] [facility] Start: 12-08-2021 [facility] Start: 12-05-2021 End: 12-05-2021 ambulatory [facility] Work Phone: Start: 12-05-2021 End: 12-05-[address] [facility] Start: 12-05-2021 Registered Referred [facility] Start: 12-01-2021 End: 12-01-2021 [facility] Start: 12-01-2021 [facility] Start: 11-28-2021 End: 11-28-2021 [facility] Start: 11-28-2021 [facility] Start: 11-25-2021 Rx Renewal Monika Horner Jada rt Work Phone: [facility] Work Phone: Start: 11-23-2021 End: 11-23-2021 [facility] Start: 11-23-2021 [facility] Start: 11-22-2021 End: 11-22-2021 [facility] Start: 11-22-2021 [facility] Start: 11-21-2021 End: 11-21-2021 [facility] Start: 11-15-2021 AUDIT Shiela Jada rt Work Phone: [facility] Work Phone: Start: 11-14-2021 End: 11-14-2021 [facility] Start: 11-14-2021 [facility] Start: 11-08-2021 End: 11-08-2021 [facility] Start: 11-08-2021 [facility] Start: 11-04-2021 End: 11-04-2021 [facility] Start: 11-04-2021 [facility] Start: 10-31-2021 End: 11-01-2021 Emergency department patient visit UNKNOWN PROVIDER [facility] Start: 10-31-2021 End: 11-01-2021 Emergency department patient visit Dante Kim MD Work Phone: [facility] Emergency Dept Comment on above: Other fatigue (Prima ry Dx) Start: 10-31-2021 End: 10-31-2021 Departed Referred [facility] Start: 10-21-2021 End: 10-29-2021 Evaluation and management of inpatient UNKNOWN PROVIDER [facility] Start: 10-21-2021 End: 10-29-2021 Evaluation and management of inpatient Lisa Michelle DO Work Phone: [facility] Comment on above: Leg swelling (Primar y Dx); Acute deep vein thrombosis (DVT) of proximal vein of lower extremity, unspecified laterality (HCC) Start: 10-20-2021 End: 10-20-2021 Departed Referred [facility] Start: 10-17-2021 Telephone encounter Nicole davis MD Work Phone: [facility] Comment on above: Missed Appointment Start: 09-19-2021 End: 09-19-2021 Departed Referred [facility] Start: 11-02-2020 AUDIT Monika Elias rt Work Phone: [facility] Work Phone: Start: 10-27-2020 AUDIT Monika Elias rt Work Phone: [facility] Work Phone: Start: 07-13-2020 Patient encounter procedure Monika Staley [facility] Work Phone: Start: 04-13-2020 Patient encounter procedure Wing Ritter [facility] Work Phone: Start: 04-07-2020 Patient encounter procedure Wing Ritter [facility] Work Phone: Start: 03-18-2020 Patient encounter procedure Wing R[facility] Work Phone: Start: [...] brain brain stem w/o contrast material Santino Brareto MD Work Phone: Start: 10-27-2021 Prothrombin time Andres Sheridan MD Work Phone: Start: 10-26-2021 Electroencephalogram w/rec awake&asleep Sarina Pineda CLINICAL ADMINISTRATOR - MANAGER PROGRAMS Work Phone: Start: 10-26-2021 Ct head/brain w/o co ntrast material Sarina Isabel Edwin CLINICAL ADMINISTRATOR - MANAGER PROGRAMS Work Phone: Start: 10-26-2021 Prothrombin time Andres Sheridan MD Work Phone: Start: 10-25-2021 Speech and language therapy regime Sarina Isabel Edwin CLINICAL ADMINISTRATOR - MANAGER PROGRAMS Work Phone: Start: 10-25-2021 Prothrombin time Andres [...] Start: 10-21-2021 Blood count reticulo cyte automated Ellenyvette Scherer CLINICAL ADMINISTRATOR - MANAGER PROGRAMS Work Phone: Start: 10-21-2021 C-reactive protein Loua nn Shilpa Scherer CLINICAL ADMINISTRATOR - MANAGER PROGRAMS Work Phone: Start: 10-21-2021 Non-invas physiologi c std extremity art 2 level Shruthi Malik CLINICAL ADMINISTRATOR - MANAGER PROGRAMS Work Phone: Start: 10-21-2021 Radex calcaneus mini mum 2 views Shruthi Malik CLINICAL ADMINISTRATOR - MANAGER PROGRAMS Work Phone: Start: 10-21-2021 Dup-scan xtr veins [...] Comment: Speci men Type: BLOOD SPECIMENOrdering Facility: [facility] Address: [address] [place] [address] Performed By: #### T SCR ####[facility] BLOOD BANKCLIA [id number] [address] Start: 08-04-2021 Antibody screen Comment on above: Order Comment: Speci men Type: BLOOD SPECIMENOrdering Facility: [facility] Address: [address] [place] [address] Performed By: #### T SCR ####[facility] BLOOD BANKCLIA [id number] [address] Start: 08-01-2021 Antibody screen Comment on above: Order Comment: Speci men Type: BLOOD SPECIMENOrdering Facility: [facility] Address: [address] [place] [address] Performed By: #### T SCR ####[facility] BLOOD BANKCLIA [id number] [address] Start: 06-07-2021 Antibody screen Comment on above: Order Comment: Speci men Type: BLOOD SPECIMEN Performed By: #### T SCR ####[facility] BLOOD BANKCLIA [id number] [place] [id number] [place] Start: 09-02-2020 Lipid 1996 panel - S bradly or Plasma Rebecca Buck MD Work Phone: Start: 04-07-2020 Echocardiography Wing Ritter Start: 11-13-2019 Radiologic examinati on tibia & fibula 2 views 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 (Varnish Cooker) Debbie Work Phone: Hernia repair Monika melvin [...] - Td) DTaP/Tdap/Td vaccine (2 - Td) [facility] Work Phone: Start: 09-22-2026 DTaP/Tdap/Td Vaccine s (2 - Td or Tdap) DTaP/Tdap/Td Vaccines (2 - Td or Tdap) [facility] Start: 09-02-2025 Lipid panel Lipid Panel [facility] Start: 03-02-2025 Registered Referred Registered [facility] [employer] Start: 02-26-2025 Registered Referred [facility] [employer] Start: 02-23-2025 Registered Referred Registered [facility] [employer] Start: 02-19-2025 Registered Referred Registered [facility] [employer] Start: 02-16-2025 [facility]istered [facility] Start: 08-22-2024 DIABETES SCREEN DIABETES SCREEN [facility] Start: 12-04-2023 Lipid [facility] Start: 12-04-2023 Lipid screen Lipid screen [facility] Work Phone: Start: 09-13-2023 End: 09-13-2023 Patient encounter procedure 09/13/2023 11:30 AM EDT Office Visit [facility] [address] [place] [id number] Rebecca Buck MD [address] [place] [address] [facility] Start: 08-31-2023 End: 08-31-2023 Patient encounter procedure 08/31/2023 9:30 AM EDT Appointment [facility] [address] [place] [id number] Rebecca Buck MD [address] [place] [address] [facility] Start: 08-13-2023 End: 08-12-2024 Basic metabolic 1998 panel - Serum or Plasma Basic metabolic panel Lab Routine Calculus of ureter Expected: 08/13/2023 (Approximate), Expires: 08/12/2024 [facility] [employer] Comment on above: Expected: 08/13/2023 (Approximate), Expires: 08/12/2024 Start: 08-13-2023 End: 08-12-2024 CT Abdomen WO contrast CT abdomen pelvis wo IV contrast Imaging Routine Left flank pain Calculus of ureter Expected: 08/13/2023, Expires: 08/12/2024 [facility] [employer] Comment on above: Expected: 08/13/2023 , Expires: 08/12/2024 Start: 08-13-2023 End: 02-12-2024 PSA, Monitoring ([facility]) PSA, Monitoring ([facility]) Lab Routine Disease of prostate Expected: 08/13/2023 (Approximate), Expires: 02/12/2024 [facility] [employer] Work Phone: Comment on above: Expected: 08/13/2023 (Approximate), Expires: 02/12/2024 Start: 08-13-2023 End: 08-13-2023 Patient encounter procedure 08/13/2023 10:00 AM EDT Office Visit [facility] [address] [place] [phone] Rebecca Buck MD [address] [place] [address] [facility] Start: 07-17-2023 Bacteria identified in Urine by Culture [facility] Start: 07-17-2023 [facility] Start: 07-16-2023 Measurement of substance [facility] Start: 05-07-2023 Medicare Advantage A nnual Wellness Visit Medicare Advantage Annual Wellness Visit [facility] Start: 03-02-2023 Creatinine measurement Creatinine Le carmela [facility] Start: 03-02-2023 Potassium measurement Potassium Leve l [facility] Start: 08-22-2022 Diabetes mellitus screening Diabetes Screening [facility] Start: 01-05-2022 Influenza vaccination [facility] Start: 12-23-2021 EPV, Provider: Wing Ritter, Status: Pen, Time: 9:30 AM EPV, Provider: Wing Ritter, Status: Pen, Time: 9:30 AM [facility] Work Phone: Start: 12-05-2021 Influenza vaccination Flu vaccine (# 1) [facility] Start: 12-05-2021 Blood chemistry [facility] Work Phone: Start: 12-05-2021 Complete blood count [facility] Work Phone: Start: 12-05-2021 [facility] Work Phone: Start: 12-01-2021 [facility] Work Phone: Start: 08-05-2021 COVID-19 VACCINE (4 - Booster for Moderna series) COVID-19 VACCINE (4 - Booster for Moderna series) [facility] Start: 08-05-2021 COVID-19 Vaccine (4 - Booster for Pfizer series) COVID-19 Vaccine (4 - Booster for Pfizer series) [facility] Start: 06-01-2021 COVID-19 Vaccine (4 - Booster for Pfizer series) COVID-19 Vaccine (4 - Booster for Pfizer series) [facility] Start: 05-07-2021 ADVANCE DIRECTIVE DISCUSSION ADVANCE DIRECTIVE DISCUSSION [facility] Start: 08-11-2020 Screening for malign ant neoplasm of colon [facility] Start: 07-30-2020 Screening for malign ant neoplasm of colon [facility] Start: 01-20-2020 Echocardiography Echocardiogram [facility] [address] [place] Work Phone: Start: 01-06-2020 Influenza vaccination INFLUENZA (#1) [facility] Start: 12-04-2019 Annual Wellness Visi t (AWV) Annual Wellness Visit (AWV) [facility] Start: 12-04-2019 Creatinine monitoring Creatinine mon itoring [facility] Work Phone: Start: 12-04-2019 Hepatitis C screen Hepatitis C scree n [facility] Work Phone: Comment on above: Postponed from 05/06 (Patient Refused) Start: 12-04-2019 Potassium monitoring Potassium monit oring [facility] Work Phone: Start: 12-04-2019 Prostate specific an tigen measurement Prostate Specific Antigen (PSA) Screening or Monitoring [facility] Start: 12-04-2019 Shingles Vaccine (1 of 2) Day gles Vaccine (1 of 2) [facility] Work Phone: Comment on above: Postponed from 05/06 (Patient Refused) Start: 06-07-2019 Colon Cancer Screen FIT/FOBT [facility] Work Phone: Start: 08-14-2017 LIPID SCREEN LIPID SCREEN [facility] Start: 2017 ADVANCE DIRECTIVE DISCUSSION ADVANCE DIRECTIVE DISCUSSION [facility] Start: 2017 PNEUMOCOCCAL: 65+ (1 - PCV) PNEUMOCOCCAL: 65+ (1 - PCV) [facility] Start: 2017 PNEUMOVAX AGE 65 AND OVER WITH 5YR LOOKBACK (#1) PNEUMOVAX AGE 65 AND OVER WITH 5YR LOOKBACK (#1) [facility] Start: 04-14-2016 DIABETES SCREEN DIABETES SCREEN [facility] Start: 2012 RSV Immunization age d 60 or older (1 - 1-dose 60+ series) RSV Immunization aged 60 or older (1 - 1-dose 60+ series) [facility] Start: 2007 PROSTATE CANCER SCRE ENING DISCUSSION PROSTATE CANCER SCREENING DISCUSSION [facility] Start: 2002 Shingles vaccine (1 of 2) Day gles vaccine (1 of 2) [facility] Start: 2002 SHINGRIX VACCINE (1 of 2) DAY GRIX VACCINE (1 of 2) [facility] Start: 2002 Tuberculosis screening COLOREC MONIQUE CANCER SCREENING,SEE MODIFIER [facility] Start: 2002 Zoster Vaccines (1 of 2) Zoste r Vaccines (1 of 2) [facility] Start: 1997 COLOGUARD (FIT-DNA) COLOGUARD (FIT-D NA) [facility] Start: 1997 Colonoscopy COLONOSCOPY [facility] Start: 1997 COLORECTAL CANCER SCREENING COLORECTAL CANCER SCREENING [facility] Start: [address] COLONOGRAPHY [facility] Start: 1997 FECAL OCCULT BLOOD FECAL OCCULT BLOO D [facility] Start: 1997 Screening for malign ant neoplasm of colon [facility] Start: 1997 SIGMOIDOSCOPY SIGMOIDOSCOPY [facility] Start: 1987 Diabetes screen Diabetes screen [facility] Start: 1971 Urine microalbumin profile DTAP,TDAP,TD (1 - Tdap) [facility] Start: 1970 ANNUAL PCP TEAM VEGETABLE PACKER KEESHA DISEASE VISIT ANNUAL PCP TEAM CHRONIC DISEASE VISIT [facility] Start: 1970 BP CONTROLLED (<130/80) BP CONTROLLE D (<130/80) [facility] Start: 1970 Diabetes mellitus screening Diabetes Screening [facility] Start: 1970 HEPATITIS C SCREENING HEPATITIS C SC PHIL [facility] Start: 1970 Hepatitis C screening [facility] Start: 1964 Adult depression screening assessment DEPRESSION SCREENING [facility] Start: 1964 Depression Screen Depression Screen [facility] Start: 1962 Diabetic foot examination Diabetes: Foot Exam [facility] Start: 1962 Glaucoma screening Diabetes: R etinopathy Screening [facility] Start: 1962 Preventive dental service Diabetes: Dental Exam [facility] Start: 1950 Echocardiography Echocardiogram [facility] Start: 1950 Hemoglobin A1c measurement Diabetes: Hemoglobin A1C [facility] Start: 1950 Lipid panel Lipid Panel [facility] Start: 1950 Screening for malign ant neoplasm of colon [facility] Bacteria identified in Urine by Culture Urine Culture [facility] Work Phone: End: 03-02-2022 CBC W Auto Differential panel - Blood CBC with Auto Differential Lab Routine One Time for 1 Occurrences starting 03/02/2022 until 03/02/2022 [facility] Work Phone: Comment on above: One Time for 1 Occur rences starting 03/02/2022 until 03/02/2022 End: 03-02-2022 Comprehensive metabolic 2000 panel - Serum or Plasma Comprehensive Metabolic Panel Lab STAT One Time for 1 Occurrences starting 03/02/2022 until 03/02/2022 [facility] Work Phone: Comment on above: One Time for 1 Occur rences starting 03/02/2022 until 03/02/2022 End: 09-06-2023 CT Abdomen [facility] Work Phone: Comment on above: Once for 1 Occurrenc es starting 09/06/2023 until 09/06/2023 End: 12-22-2021 Culture, Blood 2 Culture, Blood 2 Microbiology STAT One Time for 1 Occurrences starting 12/22/2021 until 12/22/2021 [facility] Work Phone: Comment on above: One Time for 1 Occur rences starting 12/22/2021 until 12/22/2021 End: 12-22-2021 Microscopic examination of blood, culture Culture, Blood Microbiology STAT One Time for 1 Occurrences starting 12/22/2021 until 12/22/2021 [facility] Work Phone: Comment on above: One Time for 1 Occur rences starting 12/22/2021 until 12/22/2021 Microscopic examinat ion of blood, culture Culture, Blood Microbiology STAT 12/22/2021 12:22 AM EDT [facility] Work Phone: Oxygen therapy [[facility]ini [facility]] Initiate Oxygen Therapy Protocol Respiratory Care Routine As Needed until discontinued starting 10/21/2021 [facility] Comment on above: As Needed until disc ontinued starting 10/21/2021 Protime-INR Protime-INR Lab Routine Daily until discontinued starting 10/23/2021, 7 completed [facility] Work Phone: Comment on above: Daily until disconti nued starting 10/23/2021, 7 completed End: 03-02-2022 Protime-INR Protime-INR Lab Routine One Time for 1 Occurrences starting 03/02/2022 until 03/02/2022 [facility] Work Phone: Comment on above: One Time for 1 Occur rences starting 03/02/2022 until 03/02/2022 Spirometry panel Incentive stef metry Respiratory Care Routine Daily until discontinued starting 10/21/2021 [facility] Work Phone: Comment on above: Daily until disconti nued starting 10/21/2021 End: 10-21-2021 Wound ostomy eval Wound ostomy eval Wound Ostomy Routine One Time for 1 Occurrences starting 10/21/2021 until 10/21/2021 [facility] Work Phone: Comment on above: One Time for 1 Occur rences starting 10/21/2021 until 10/21/2021 [facility] NEGATED: Highlighted row has been ruled out! Planned Goals not documented [facility] Work Phone: Immunizations Immunization Date Immunization Notes Care Provider [facility] 03-04-2019 influenza, high dose seasonal, preservative-free Sarika [...] Phone: Payers Date Payer Category Payer Unknown [id number] 03-13-2024 Self-pay 01-05-2022 Medicaid 01-05-2022 Medicare 01-05-2022 Medicare [id number] 10-05-2021 Medicaid [id number] 06-07-2021 Medicare UHC MEDICARE UHC DUAL COMPLETE HMO SNP [id number] 06/07/2021-Present [phone] [address] [place] [address] Medicare [id number]. 2.7.3.392386.315 06-07-2021 Medicare UHC MEDICARE UNITEDHE[employer] DUAL COMPLETE [id number] 06/07/2021-Present [phone] [address] [place] [address] [id number]. 2.7.3.193957.315 11-05-2019 Medicare UHC AARP MEDICAR E [facility] AARP MEDICARE HMO [id number] 11/05/2019-Present HMO [id number]. 2.7.3.952655.315 07-06-2015 Medicare UHC MEDICARE UHC MEDICARE COMPLETE xxxxxxxxx 2015-Present xxxxxxxxx 1.2.840.804500.1.13.239. 2.7.3.051003.315 1950 Unknown [id number] 2.16.840.1.553523.3.579. 2.668 1950 Unknown [id number] 2.16.840.1.445764.3.579. 2.668 1950 Unknown [id number] 2.16.840.1.349900.3.579. 2.8 1950 Unknown [id number] 2.16.840.1.134631.3.579. 2.668 1950 Unknown [id number] 2.16.840.1.655670.3.579. 2.05-06-1950 Unknown [id number] 2.16.840.1.691012.3.579. 2.668 1950 Unknown [id number] 2.840.1.550479.3.579. 2.668 Private Health Insurance Unknown Unknown [id number] 2.16.840.1.303278.3.579. 2.462 Unknown [id number] 2.840.1.331407.3.579. 2.462 Unknown [id number] 2.840.1.789123.3.579. 2.462 Unknown [id number] 2.16840.1.142729.3.579. 2.462 Unknown [id number] 2.16.840.1.786105.3.579. 2.462 Unknown [id number] 2.16.840.1.617245.3.579. 2.462 Unknown [id number] 2.16.840.1.367288.3.579. 2.462 Unknown [id number] 2.16.840.1.488831.3.579. 2.462 Unknown [id number] 2.16.840.1.486385.3.579. 2.462 Unknown [id number] 2.16.840.1.890194.3.579. 2.462 Unknown [id number] 2.16.840.1.414462.3.579. 2.462 Unknown [id number] 2.16.840.1.983059.3.579. 2.462 Unknown [id number] 2.840.1.717135.3.579. 2.462 Unknown [id number] 2.840.1.626902.3.579. 2.462 Unknown [id number] 2.840.1.703646.3.579. 2.462 Unknown [id number] 2.840.1.695413.3.579. 2.462 Unknown [id number] 2.840.1.436454.3.579. 2.462 Unknown [id number] 2.840.1.762094.3.579. 2.462 Unknown [id number] 2.840.1.898098.3.579. 2.462 Unknown [id number] 2.840.1.375438.3.579. 2.462 Unknown [id number] 2.840.1.687753.3.579. 2.462 Unknown [id number] 2.840.1.335201.3.579. 2.462 Unknown [id number] 2.840.1.009915.3.579. 2.462 Unknown [id number] 2.840.1.059795.3.579. 2.462 Unknown [id number] 2.840.1.409720.3.579. 2.462 Unknown [id number] .840.1.165470.3.579. 2.462 Unknown [id number] .840.1.796422.3.579. 2.462 Unknown [id number] 2.840.1.184343.3.579. 2.462 Unknown [id number] 2.840.1.596002.3.579. 2.462 Unknown [id number] 2.840.1.245304.3.579. 2.462 Unknown [id number] 2.16.840.1.896932.3.579. 2.462 Unknown [id number] 2.16.840.1.137478.3.579. 2.462 Unknown [id number] 2.16.840.1.489729.3.579. 2.462 Unknown [id number] 2.16.840.1.587587.3.579. 2.462 Unknown [id number] 2.16.840.1.928982.3.579. 2.462 Unknown [id number] 2.16.840.1.651266.3.579. 2.462 Unknown [id number] 2.16.840.1.998590.3.579. 2.462 Unknown [id number] 2.16.840.1.527821.3.579. 2.462 Unknown [id number] 2.16.840.1.300057.3.579. 2.462 Unknown [id number] 2.16.840.1.502073.3.579. 2.462 Unknown [id number] 2.16.840.1.438284.3.579. 2.462 Unknown [id number] 2.16.840.1.980046.3.579. 2.462 Unknown [id number] 2.16.840.1.774265.3.579. 2.462 Unknown [id number] 2.16.840.1.516604.3.579. 2.462 Unknown [id number] 2.16.840.1.856628.3.579. 2.462 Unknown [id number] 2.16.840.1.883613.3.579. 2.462 Unknown [id number] 2.16.840.1.809625.3.579. 2.462 Unknown [id number] 2.16.840.1.755874.3.579. 2.462 Unknown [id number] 2.16.840.1.621998.3.579. 2.462 Unknown [id number] 2.16.840.1.348654.3.579. 2.462 Unknown [id number] 2.16.840.1.832685.3.579. 2.462 Unknown 57554853 2.16.840.1.967966.3.579. 2.462 Unknown 89285184 2.16.840.1.731305.3.579. 2.462 Unknown 87803644 2.16.840.1.266576.3.579. 2.462 Unknown 83763422 2..840.1.410201.3.579. 2.462 Unknown 70749214 2..840.1.898773.3.579. 2.462 Unknown 25895154 2.840.1.431307.3.579. 2.462 Unknown 41163263 2.840.1.905701.3.579. 2.462 Unknown 28275125 2.840.1.401699.3.579. 2.462 Unknown 05332542 2.840.1.040509.3.579. 2.462 Unknown 31448564 2.840.1.156573.3.579. 2.462 Unknown 15211490 2.16840.1.481336.3.579. 2.462 Unknown 86526001 2.840.1.852876.3.579. 2.462 Unknown 83969771 2.16.840.1.576625.3.579. 2.462 Unknown 65586522 2.16.840.1.697459.3.579. 2.462 Unknown 24366190 2.16.840.1.009153.3.579. 2.462 Unknown 73935866 2.16.840.1.606091.3.579. 2.462 Unknown 22834343 2.16840.1.575311.3.579. 2.462 Unknown 40074497 2.16.840.1.837719.3.579. 2.462 Unknown 83510929 2.16.840.1.155686.3.579. 2.462 Unknown 96402455 2.16.840.1.112164.3.579. 2.462 Unknown 56347328 2.16.840.1.817392.3.579. 2.462 Unknown 04550113 2.16.840.1.817514.3.579. 2.462 Unknown 50008046 2.16.840.1.560679.3.579. 2.462 Unknown 29544371 2.16.840.1.978567.3.579. 2.462 Unknown [id number] 2.16.840.1.250767.3.579. 2.462 Unknown [id number] 2.16.840.1.555742.3.579. 2.462 Unknown [id number] 2.16.840.1.551026.3.579. 2.462 Unknown [id number] 2.16.840.1.684099.3.579. 2.462 Unknown [id number] 2.16.840.1.969777.3.579. 2.462 Unknown 40259741 2.16.840.1.516742.3.579. 2.462 Unknown 43571384 2.16.840.1.357265.3.579. 2.462 Unknown 10794081 2.16.840.1.006285.3.579. 2.462 Unknown 21798607 2.16.840.1.679466.3.579. 2.462 Unknown 85104398 2.16.840.1.757638.3.579. 2.462 Unknown 09329086 2.16.840.1.693539.3.579. 2.462 Unknown 39016718 2.16.840.1.601272.3.579. 2.462 Unknown 62803281 2.16.840.1.735443.3.579. 2.462 Unknown 30628068 2.16.840.1.987450.3.579. 2.462 Unknown 30026111 2.16.840.1.943113.3.579. 2.462 Unknown 12181925 2.16.840.1.289061.3.579. 2.462 Unknown 56478379 2.16.840.1.120004.3.579. 2.462 Unknown 58355941 2.840.1.629476.3.579. 2.462 Unknown 99311613 2.840.1.167351.3.579. 2.462 Unknown 39548676 2.840.1.312615.3.579. 2.462 Unknown 03353480 2.840.1.154767.3.579. 2.462 Unknown 65901267 2.840.1.631474.3.579. 2.462 Unknown 40593580 2..840.1.336608.3.579. 2.462 Unknown 24554230 2.840.1.705460.3.579. 2.462 Unknown 50636254 2.840.1.832783.3.579. 2.462 Unknown 51213437 2.840.1.297206.3.579. 2.462 Unknown 67150311 2.840.1.082203.3.579. 2.462 Unknown 74261471 2.16.840.1.136388.3.579. 2.462 Unknown [id number] 2.16.840.1.589362.3.579. 2.462 Unknown [id number] 2.840.1.421930.3.579. 2.462 Unknown 11085170 2.16.840.1.773241.3.579. 2.462 Unknown 46220347 2.16.840.1.197285.3.579. 2.462 Unknown 33165413 2.16.840.1.813170.3.579. 2.462 Unknown 07614069 2.16.840.1.126586.3.579. 2.462 Unknown 68724557 2.16.840.1.887686.3.579. 2.462 Unknown 89472704 2.16.840.1.680377.3.579. 2.462 Unknown 07535336 2.16.840.1.973886.3.579. 2.462 Unknown [id number] 2.16.840.1.905153.3.579. 2.462 Unknown [id number] 2.16.840.1.866647.3.579. 2.462 Unknown [id number] 2.16.840.1.147351.3.579. 2.462 Unknown [id number] 2.16.840.1.094941.3.579. 2.462 Unknown [id number] 2.16.840.1.989359.3.579. 2.462 Social History Date Type Detail Facility Start: 05-23-2018 End: 05-19-2019 Tobacco smoking status [facility] Former smoker [employer] Work Phone: History of tobacco use Cigar Smoker [employer] Phone: Start: 05-19-2019 End: 08-13-2023 Cigarettes smoked current (pack per day) - Reported [employer] Phone: Start: 05-19-2019 End: 08-13-2023 Alcohol intake Current non-drinker of alcohol (finding) [employer] Phone: Start: 12-03-2018 History SDOH Physica l Activity DPW 7 [employer] Work Phone: Start: 12-03-2018 History SDOH Physica [...] 11-13-2019 Tobacco smoking status NHIS Never smoker [facility] Start: 05-23-2018 End: 11-13-2019 Tobacco use and exposure Never used [facility] Start: 11-13-2019 History SDOH Alcohol Std Drinks 98 [facility] Start: 10-11-2021 End: 02-15-2022 Exposure to SARS-CoV-2 (event) Not sure [facility] Start: 1950 Sex Assigned At Male W [facility] History of tobacco use Current smoker [facility] Work Phone: History of tobacco use Cigarette Smoker S [facility] Work Phone: Start: 10-31-2021 End: 08-13-2023 Tobacco use panel [facility] Tobacco smoking stat us VTIS Unknown if ever smoked [facility] Work Phone: Start: 07-11-2024 End: 08-21-2024 Sex Male (finding) [facility] NEGATED: Highlighted row - - [facility] Work Phone: Medical Equipment Procedure Code Equipment Code Equipment Origin al Text Equipment Identifier Dates Kit Bactiseal Woodard maria guadalupe Silicone Barium Catheter Shunt Sterile - [id number] Start: 06-08-2021 Catheter Bactise al 14cm External Drainage Csf Sterile Latex Free - [id number] Start: 08-05-2021 Valve Certas Shannon nt Inline - [id number] Start: 06-08-2021 Valve Certas Shannon nt Inline - [id number] Start: 08-05-2021 Cass snow [facility] - [id number] Start: 08-09-2021 Goals Date Patient Goal Desired [...] status health issues are not documented Disease [facility] Work Phone: Mental Status Date Assessment Result Facility NEGATED: Highlighted row Cognitive function [Interpretation] Cognitive status health issues are not documented Disease [facility] Work Phone: Clinical [...] Hydrocephalus, adult (CMS/HCC) (HCC) Kidney stone Neuropathy DRILL OPERATOR PNEUMATIC (ventriculoperitoneal) shunt status Past Surgical History: Procedure [...] 09/13/23 12:05 PM documented in this encounter [facility] 08-31-2023 Note S: Shanthi from [facility] spoke with [facility] nurse regarding voiding trial procedure. [...] Protocols used: Information Only Call - No [facility] 08-31-2023 Telephone encounter Note S: Shanthi from [facility] spoke with [facility] nurse regarding voiding trial procedure. [...] Protocols used: Information Only Call - No Xosphq-NLIJP-BE [facility] 08-31-2023 Miscellaneous Notes S: Shanthi from [facility] spoke with [facility] nurse regarding voiding trial [...] Protocols used: Information Only Call - No Tradid-YGNFI-NI documented in this encounter [facility] 08-29-2023 Telephone encounter Note Lm on daughters vm to advise them to call the number for the manager e learning to get clarification, and to call back with further questions [facility] 08-29-2023 Miscellaneous Notes Lm on daughters vm to advise them to call the number for the manager e learning to get clarification, and to call back with further questions Yes, they will need to call the number given to them. Please advise Name of caller: Shanthi Contact phone number: [phone] Relationship to Patient: patient Provider: MD Quinn Practice: [facility] Chief Complaint/Reason for Call: Shanthi called in to see if Pt would need to come by cot for his CT appt due to Pt being [place]. [facility] did reach out to office and was advised to reach out to Central Scheduling. [facility] did reach out to CS and was advised to let [facility] know that she would need to reach out to call Maury Cedeño Automobile Body Repairer at [facility] [phone] to get clarifications. [facility] did reach back out to [facility] and advised and provider Maury's #. Please advise Best time of day caller can be reached: Any Patient advised that office/PCP has 24-48 business hours to return their call: N/A documented in this encounter [facility] 08-27-2023 Telephone encounter Note Yes, they will need to call the number given to them. [facility] 08-27-2023 Telephone encounter Note Please advise [facility] 08-21-2023 Telephone encounter Note Name of caller: Shanthi Contact phone number: [phone] Relationship to Patient: patient Provider: MD Quinn Practice: [facility] Chief Complaint/Reason for Call: Shanthi called in to see if Pt would need to come by cot for his CT appt due to Pt being [place]. [facility] did reach out to office and was advised to reach out to Central Scheduling. [facility] did reach out to and was advised to let [facility] know that she would need to reach out to call Maury Cedeño Automobile Body Repairer at [facility] [phone] to get clarifications. [facility] did reach back out to [facility] and advised and provider Maury's #. 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 Changed appt to 08/13/23 per [facility] only avail time for transport, first avail with DR Buck at 10:00 AM. [facility] 06-25-2023 Miscellaneous Notes [facility] called in stating appt scheduled 07/10/23 [place] has to be made further out, pt being transported by cot. Changed appt to 08/13/23 per [facility] only avail time for transport, first avail with DR Buck at 10:00 AM. documented in this encounter [facility] 12-22-2021 Hospital Discharge instructions SANIA Lou - 12/22/2021 2:32 AM EDT Please take medication as prescribed Please follow up with your Physicians as instructed in this discharge paperwork Thank you for choosing [facility] I appreciate your patience Please return to the emergency department if your symptoms worsen, or new symptoms develop as discussed documented in this encounter [facility] Work Phone: 10-29-2021 Note Hospitalist [...] abnormality and previous indwelling tubing history of DRILL OPERATOR PNEUMATIC shunt ? #?Bilateral lower extremity wounds-wound care [...] neurologist. [facility] be [facility] to the prison and his Coumadin was continued, dosing instructions were given. Wound care was given for his lower extremity wounds. Consults: neurology, vascular surgery, gastroenterology Discharge Instructions: Diet: No diet orders on file Activity: as tolerated Disposition: Patient discharged in stable condition to prison . Greater than 30 minutes spent discharging [...] were sent to [facility] [address] [place] [address] [address] [facility] - P [phone] - F [phone] [facility] [id number] ? levETIRAcetam 750 MG tablet ? warfarin 6 MG tablet Recommended Follow-up: No follow-up provider specified. Complexity of Follow up: [] Moderate Complexity: follow up within 7-14 calendar days (55483) [x] Severe Complexity: follow up within 7 calendar days (79330) Follow up Testing, Pending results or Referrals [...] Increased fatigue or (more content not included)... [facility] 10-29-2021 Hospital Discharge instructions Fabi Subramanian RN - 10/29/2021 12:03 PM EDT Continuity of Care Form Patient Name: Andrew Sifuentes : 1950 Admit date: 10/21/2021 Discharge date: 10/29/2021 Code Status Order: Full Code Advance Directives: Admitting Physician: May Cash MD PCP: MONIKA STALEY MD Discharging Nurse: Fabi Discharging Hospital Unit/Room#: 227/1593 Discharging Unit Emergency Contact: Extended Emergency Contact Information Primary Emergency Contact: Triny Damon Address: [address] [place] [address] [place] [address] [facility] Relation: Brother/Sister Secondary Emergency Contact: Melissa Sifuentes Mobile Relation: Child Preferred language: Kazakh Past Surgical History: Past Surgical History: Procedure Laterality Date BRAIN SURGERY CHOLECYSTECTOMY COLONOSCOPY HERNIA REPAIR Immunization History: Immunization History Administered Date(s) Administered Influenza Virus Vaccine 02/08/2015 Influenza, High Dose (Fluzone 65 yrs and older) 01/25/2018, 03/04/2019 Influenza, Quadv, IM, (6 mo and older Fluzone, Flulaval, Fluarix and 3 yrs and older Afluria) 02/24/2016, 02/14/2017 Pneumococcal Conjugate 13-valent ([id number]) 09/22/2016 Pneumococcal Conjugate Vaccine 02/04/2013 Pneumococcal Polysaccharide ([id number]) 12/03/2018 Tdap (Boostrix, Adacel) 09/22/2016 Active Problems: Patient Active Problem List Diagnosis Code Flank pain, acute R10.9 Night muscle spasms M62.838 Chronic fatigue R53.82 Hydrocephalus ([facility]) G91.9 Neuropathy G62.9 Erectile dysfunction N52.9 Fluid retention in tissues R60.9 Hyperlipidemia E78.5 Morbidly obese ([facility]) E66.01 Leg wound, left S81.802A DVT, lower extremity, recurrent, unspecified laterality ([facility]) I82.409 Moderate malnutrition ([facility]) E44.0 History of seizures Z87.898 [...] Dependent Dressing Dependent Toileting Dependent Feeding Dependent Route Carrier Dependent Med Delivery whole in pudding Wound [...] Q4H prn SOB Oxygen Therapy: {Therapy; copd oxygen:15859} Ventilator: { CC Vent List:[id number]} Rehab Therapies: {THERAPEUTIC INTERVENTION:[id number]} Weight Bearing Status/Restrictions: Weight Bearing - Patient was bedbound in hospital Other Medical Equipment (for information only, NOT a DME order): wheelchair, hospital bed, and Boaz Other Treatments: Patient's personal belongings (please select all that are sent with patient): {P DME Belongings:536298146} RN SIGNATURE: CASE MANAGEMENT/SOCIAL WORK SECTION Inpatient Status Date: Readmission Risk Assessment Score: Readmission Risk Risk of Unplanned Readmission: 11 Discharging to Facility/ Agency Name: Address: Phone: Fax: Dialysis Facility (if applicable) Name: Address: Dialysis Schedule: Phone: Fax: Fish Liver Sorter/Financial Administrative Assistant signature: {Esignature:[id number]} PHYSICIAN SECTION Prognosis: Fair Condition at Discharge: Stable Rehab Potential (if transferring to Rehab): Fair Recommended Labs or Other Treatments After Discharge: Coumadin based on INR target range 2-3, Coumadin 6 mg on 10/30 and 10/31, recheck INR 11/01 and notify physician, ideally should be on 6 mg alt with 7 mg daily, PT/OT, follow-up with neurologist in 1 month, continue [facility] Physician Certification: I certify the above information and transfer of Andrew Sifuentes is necessary for the continuing treatment of the diagnosis listed and that he requires [facility] Facility for greater than 30 days. Update Admission H&P: No change in H&P PHYSICIAN SIGNATURE: documented in this encounter [facility] Work Phone: 10-29-2021 History of Present illness Narrative [facility] Anticoagulation Management Service ([facility]) Inpatient Warfarin Consult HPI: Andrew Sifuentes is a 71 y.o. 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 Please search for covering pharmacist name via FatRedCouch or Groups --> Pharmacy --> Anti-Coagulation Consult Pharmacist (on 3rd page). If no response via FatRedCouch, please page [phone]. Patient seen and chart reviewed. Afebrile. Adequate oxygenation on room air. Baseline mentation. Exam stable X 5 systems. Hgb 11.0 WBC 10.0 K Platelets 344 K Creatinine 0.71 GFR > 90 cc/min. NSE 20.8 with hemolysis. PT 30.8 INR 3.1 Conversion to Warfarin has been completed. APS w/u pending. Discussed with patient's staff anesthetist. Will continue to monitor. Total visit time > 35 minutes. Neurology Attending Progress Note SUBJECTIVE: No issues overnight. Care discussed with nursing staff/patient's medical team MRI brain reported nothing acute. Assessment and Plan: 71 yr M with PMH obstructive hydrocephalus s/p DRILL OPERATOR PNEUMATIC shunt in 1987, needing multiple revisions and [...] normal limits and both old and new DRILL OPERATOR PNEUMATIC shunt tubing noted. At present patient is awake, follows commands, was able to tell his name, and that he was in hospital but not oriented to time. Per documentation patient had NCSE in May 2021, was on Vimpat, but it was discontinued as there was no evidence of recurrent seizures in july 2021 by Neurology at [facility], per daughter patient was on Dilantin for 31 yrs. Per daughter patient had seizures in the past and also felt he had staring episodes 10/26/2021 morning. Per daughter patient has been essentially bed bound in [place] since May 2021 but prior to that was independent Impressions: H/O hydrocephalus H/O seizure, H/O stroke Acute DVT H/O PE Plan: -MRI brain w/o contrast nothing acute -CT head done during this admission reported no hydrocephalus, ventricles within normal limits and both old and new DRILL OPERATOR PNEUMATIC shunt tubing noted -EEG mild to moderate slow, no seizures reported -Labs reviewed -Hydrocephalus management per Neurosurgery. At present patient does not have hydrocephalus on CT head done this admission. No Neurosurgery services available as inpatient in [facility]. Patient can follow up with Neurosurgery as outpatient and if ends up needing inpatient neurosurgery requirement then may need to be transferred to [facility]. -No clear clinical signs of ventriculitis. Defer evaluation to primary medical team/ID as deemed necessary. -Discussed with daughter in detail on . She was concerned that patient has had h/o seizures, and he has been taken off seizure medication, per note documentation patient had NCSE in May 2021 when he was admitted to [facility]. Per daughter she would want [...] is no in house Neurology coverage at [facility] over the weekend, primary hospitalist team to contact build automation engineer Neurology at [facility] for any weekend neurological issues related to the patient and if need to discuss any neurological test results/findings. Other deal in house Neurology coverage will be available from Sunday at [facility] and please call build automation engineer Neurology back on Sunday if need further assistance. This note has been generated using Xangati dictation software. It may contain incorrect words, punctuation's and spellings that were not noted in the review of the note prior to signing. This note has been generated using Xangati dictation software. It may contain incorrect words, [...] eGFR >90.0 >60 mL/min EGFR IF NonAfrican Bruneian >90.0 >60 mL/min Calcium 9.1 8.4 - [...] 26 AST 24 BILITOT 0.4 LABALBU 3.7 @BRIEFLAB([facility]) ABGs: )No results for input(s): PH, [...] Radiology ACCESSION EXAM DATE/TIME PROCEDURE ORDERING PROVIDER [id number] 10/21/2021 15:30 EDT CR Calcaneus 2+ Views [id number] -SHRUTHI MALIK Left CPT code 09702 Reason For Exam (CR Calcaneus 2+ Views [...] Tomography ACCESSION EXAM DATE/TIME PROCEDURE ORDERING PROVIDER [id number] 10/26/2021 11:[address] Head or Brain w/o JUNIE PINEDA ALLISON Contrast CPT code 00768 Reason For Exam (CT Head or Brain w/o Contrast) hydrocephalus. thank you Report CLINICAL INFORMATION: Hydrocephalus. Shunt. 3 mm axial cuts through the head are obtained without IV contrast. The examination is compared to a previous study dated 06/29/2014. FINDINGS: Old DRILL OPERATOR PNEUMATIC shunt tubing is noted bilaterally. The new [...] are clear. IMPRESSION: 1. Old and new DRILL OPERATOR PNEUMATIC shunt tubing. 2. No hydrocephalus. 3. Atrophy [...] Imaging ACCESSION EXAM DATE/TIME PROCEDURE ORDERING PROVIDER [id number] 10/23/2021 11:08 EDT MRI Abdomen w/o Contrast WING SRIVASTAVA CPT code 71954 Reason For Exam (MRI Abdomen w/o Contrast) [...] Medicine ACCESSION EXAM DATE/TIME PROCEDURE ORDERING PROVIDER [id number] 10/21/2021 07:55 EDT NM Pulmonary Perfusion [id number] MAY BOGGS w/ Vent Aerosol CPT code 90092 A9567 Reason For Exam (NM Pulmonary Perfusion [...] Brachial Indices Extremity Bilateral Result Date: 10/22/2021 [facility] --- Ankle Brachial Index Report Patient DO GurpreetB: 1950 Study 10/21/2021 Name: Andrew Gonzalez (71yrs) Date: Age: 71 Account: [id number] Gender: M Loc: 444W BP: Ordering Physician: Shruthi Malik Base Engineer: Rody Cross RDMS, RVT Interpreting Physician: Carina Call --- Location: [facility] --- Indications: Foot wounds. Originally ordered as a full PVR. Ordering KIOSK SALES REPRESENTATIVE had to modify the order to ABIs [...] supine position. Images were obtained using a [employer] vascular ultrasound machine. --- Arterial pressure indices: [...] EXTREMITY BILATERAL VENOUS DUPLEX Result Date: 10/21/2021 [facility] --- Lower Extremity Venous Duplex Report Patient DO GurpreetB: 1950 Study 10/21/2021 Name: Andrew Gonzalez (71yrs) Date: Age: 71 Account: [id number] Gender: M Loc: 444 BP: Ordering Physician: May Cash Base Engineer: Rody Cross RDMS, RVT Interpreting Physician: Carina Call --- Location: [facility] --- Indications: Bilateral lower leg edema. --- [...] supine position. Images were obtained using a [employer] vascular ultrasound machine. --- Venous flow and [...] Radiology ACCESSION EXAM DATE/TIME PROCEDURE ORDERING PROVIDER [id number] 10/21/2021 08:16 EDT CR Chest 1 View Frontal [id number] MAY BOGGS CPT code 81563 Reason For Exam (CR Chest 1 View [...] Result Date: 10/22/2021 [id number] Computed Tomography ACCESSION EXAM DATE/TIME PROCEDURE ORDERING PROVIDER [id number] 10/22/2021 13:[address] Abdomen/Pelvis (No SRIVASTAVA, WING PO, No IV) CPT code 01151 Reason For Exam (CT Abdomen/Pelvis (No PO, [...] Imaging ACCESSION EXAM DATE/TIME PROCEDURE ORDERING PROVIDER [id number] 10/27/2021 13:14 EDT MRI Brain w/o Contrast UNASSIGNED, UNASSIGNED CPT code 37207 Reason For Exam (MRI Brain w/o Contrast) stroke Patient has DRILL OPERATOR PNEUMATIC shunt in place, please follow Radiology protocol [...] included. Hospitalist Progress Note 10/28/2021 11:37 AM [phone]: Please page me @ [phone] for patient care issues. [phone]: Please page cinder block mason for any issues@ night Subjective: Admit Date: [...] abnormality and previous indwelling tubing history of DRILL OPERATOR PNEUMATIC shunt # Bilateral lower extremity wounds-wound care [...] Services This report was created using the [employer] Speaking voice-activated system. Despite prompt dictation and careful editorial review, there may be subtle contextual errors in this report, due to misrecognition of the spoken word. Speech Language Pathology Facility/Department: [facility] Dysphagia Treatment Note NAME: [...] and gloves were worn throughout this session. [facility] Anticoagulation Management Service ([facility]) Inpatient Warfarin Consult HPI: Andrew Sifuentes is a 71 y.o. 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 Past Medical History: Diagnosis Date ED (erectile dysfunction) Hemorrhoids Hydrocephalus, adult (HCC) Kidney stone Neuropathy DRILL OPERATOR PNEUMATIC (ventriculoperitoneal) shunt status Patient is newly referred [...] SNF. 4. Will provide warfarin education including [facility] warfarin booklet, if appropriate. Brionna Le, PharmD candidate Josie Gupta RPh, PharmD [facility] Consult Service is available daily [phone]. Please search for covering pharmacist name via TunezyServe or Groups --> Pharmacy --> Anti-Coagulation Consult Pharmacist (on 3rd page). If no response via PerfectServe, please page [phone]. Follow up b/l foot wounds. 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 At present patient is awake, follows commands, was able to tell his name, and that he was in hospital but not oriented to time. Per documentation patient had NCSE in May 2021, was on Vimpat, but it was discontinued as there was no evidence of recurrent seizures in july 2021 by Neurology at [facility], per daughter patient was on Dilantin for 31 yrs. Per daughter patient had seizures in the past and also felt he had staring episodes 10/26/2021 morning. Per daughter patient has been essentially bed bound in [place] since May 2021 but prior to that was independent Impressions: H/O hydrocephalus H/O seizure, H/O stroke Acute DVT H/O PE Plan: -MRI brain w/o contrast. Per daughter she would like MRI brain done to evaluate for strokes -CT head done during this admission today reported no hydrocephalus, ventricles within normal limits and both old and new DRILL OPERATOR PNEUMATIC shunt tubing noted -EEG mild to moderate slow, no seizures reported -Labs reviewed -Hydrocephalus management per Neurosurgery. At present patient does not have hydrocephalus on CT head done this admission. No Neurosurgery services available as inpatient in [facility]. Patient can follow up with Neurosurgery as outpatient and if ends up needing inpatient neurosurgery requirement then may need to be transferred to [facility]. -No clear clinical signs of ventriculitis. Defer evaluation to primary medical team/ID as deemed necessary. -Discussed with daughter in detail on . She was concerned that patient has had h/o seizures, and he has been taken off seizure medication, per note documentation patient had NCSE in May 2021 when he was admitted to [facility]. Per daughter she would want [...] interim. This note has been generated using Xangati dictation software. It may contain incorrect words, punctuation's and spellings that were not noted in the review of the note prior to signing. This note has been generated using X[employer] dictation software. It may contain incorrect words, [...] LABALBU, AMYLASE, LIPASE in the last 72 hours.@BRIEFLAB([facility]) ABGs: )No results for input(s): PH, [...] Result Date: 10/21/2021 [id number] Diagnostic Radiology ACCESSION EXAM DATE/TIME PROCEDURE ORDERING PROVIDER [id number] 10/21/2021 15:30 EDT CR Calcaneus 2+ Views [id number] -SHRUTHI MALIK Left CPT code 14493 Reason For Exam (CR Calcaneus 2+ Views [...] Tomography ACCESSION EXAM DATE/TIME PROCEDURE ORDERING PROVIDER [id number] 10/26/2021 11:[address] Head or Brain w/o EDWIN, KIOSK SALES REPRESENTATIVE, SARINA Contrast CPT code 32599 Reason For Exam (CT Head or Brain w/o Contrast) hydrocephalus. thank you Report CLINICAL INFORMATION: Hydrocephalus. Shunt. 3 mm axial cuts through the head are obtained without IV contrast. The examination is compared to a previous study dated 06/29/2014. FINDINGS: Old DRILL OPERATOR PNEUMATIC shunt tubing is noted bilaterally. The new [...] are clear. IMPRESSION: 1. Old and new DRILL OPERATOR PNEUMATIC shunt tubing. 2. No hydrocephalus. 3. Atrophy [...] Imaging ACCESSION EXAM DATE/TIME PROCEDURE ORDERING PROVIDER [id number] 10/23/2021 11:08 EDT MRI Abdomen w/o Contrast WING SRIVASTAVA CPT code 94552 Reason For Exam (MRI Abdomen w/o Contrast) [...] Medicine ACCESSION EXAM DATE/TIME PROCEDURE ORDERING PROVIDER [id number] 10/21/2021 07:55 EDT NM Pulmonary Perfusion [id number] -MAY CASH w/ Vent Aerosol CPT code 23062 A9567 Reason For Exam (NM Pulmonary Perfusion [...] Brachial Indices Extremity Bilateral Result Date: 10/22/2021 [facility] --- Ankle Brachial Index Report Patient Gurpreet : 1950 Study 10/21/2021 Name: Andrew Gonzalez (71yrs) Date: Age: 71 Account: [id number] Gender: M Loc: 444W BP: Ordering Physician: Shruthi Malik Base Engineer: Rody Cross RDMS, RVT Interpreting Physician: Carina Call --- Location: [facility] --- Indications: Foot wounds. Originally ordered as a full PVR. Ordering KIOSK SALES REPRESENTATIVE had to modify the order to ABIs [...] supine position. Images were obtained using a [employer] vascular ultrasound machine. --- Arterial pressure indices: [...] EXTREMITY BILATERAL VENOUS DUPLEX Result Date: 10/21/2021 [facility] --- Lower Extremity Venous Duplex Report Patient DO GurpreetB: 1950 Study 10/21/2021 Name: Andrew Gonzalez (71yrs) Date: Age: 71 Account: [id number] Gender: M Loc: 444 BP: Ordering Physician: May Cash Base Engineer: Rody Cross RDMS, RVT Interpreting Physician: Carina Call --- Location: [facility] --- Indications: Bilateral lower leg edema. --- [...] supine position. Images were obtained using a [employer] vascular ultrasound machine. --- Venous flow and [...] Radiology ACCESSION EXAM DATE/TIME PROCEDURE ORDERING PROVIDER [id number] 10/21/2021 08:16 EDT CR Chest 1 View Frontal [id number] MAY BOGGS CPT code 17062 Reason For Exam (CR Chest 1 View [...] Tomography ACCESSION EXAM DATE/TIME PROCEDURE ORDERING PROVIDER [id number] 10/22/2021 13:[address] Abdomen/Pelvis (No SRIVASTAVA, WING PO, No IV) CPT code 87281 Reason For Exam (CT Abdomen/Pelvis (No PO, [...] 12:48 PM Consults Speech Language Pathology Facility/Department: [facility] Dysphagia Treatment Note NAME: [...] reactivity and state change, indicative of a ijjx-xv-wqaroysc diffuse encephalopathy of nonspecific etiology. There are [...] Easy to chew diet/cut up. NEVILLE Jones M.A.CCC/RACECAR DRIVER Time session ended: 1156 Total session minutes: 23 Images from the original note were not included. Hospitalist Progress Note 10/27/2021 10:40 AM 6945-1797: Please page me @ [phone] for patient care issues. [phone]: Please page cinder block mason for any issues@ night Subjective: Admit Date: [...] Services This report was created using the [employer] Speaking voice-activated system. Despite prompt dictation and careful editorial review, there may be subtle contextual errors in this report, due to misrecognition of the spoken word. [facility] Anticoagulation Management Service ([facility]) Inpatient Warfarin Consult HPI: Andrew Sifuentes is a 71 y.o. 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 Past Medical History: Diagnosis Date ED (erectile dysfunction) Hemorrhoids Hydrocephalus, adult (HCC) Kidney stone Neuropathy DRILL OPERATOR PNEUMATIC (ventriculoperitoneal) shunt status Patient is newly referred [...] SNF. 4. Will provide warfarin education including [facility] warfarin booklet, if appropriate. Thank you for this consult Brionna Le, RigoD candidate Josie Gupta RPh, PharmD [facility] Consult Service is available daily [phone]. Please search for covering pharmacist name via FatRedCouch or Groups --> Pharmacy --> Anti-Coagulation Consult Pharmacist (on 3rd page). If no response via FatRedCouch, please page [phone]. I cleaned under patient's finger nails with [...] status with Warfarin. Discussed with patient's staff anesthetist. Will continue to monitor. Total visit time [...] if concern Hydrocephalus Chronic WOODARD's - Revised DRILL OPERATOR PNEUMATIC shunt - daughter requested that pt have CT / MRI of brain and neurology be consulted, this was done. - "Hydrocephalus management per Neurosurgery. At present patient does not have hydrocephalus on CT head done this morning. No Neurosurgery services available as inpatient in [facility]. Patient can follow up with Neurosurgery as outpatient and if ends up needing inpatient neurosurgery requirement then may need to be transferred to [facility]. " Seizure history, unspecified - daughter [...] get report from nursing. Continue wound care. [facility] Anticoagulation Management Service ([facility]) Inpatient Warfarin Consult HPI: Andrew Sifuentes is a 71 y.o. 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 Past Medical History: Diagnosis Date ED (erectile dysfunction) Hemorrhoids Hydrocephalus, adult (HCC) Kidney stone Neuropathy DRILL OPERATOR PNEUMATIC (ventriculoperitoneal) shunt status Patient is newly referred [...] PharmD [facility] Consult Service is available daily [phone]. Please search for covering pharmacist name via FatRedCouch or Groups --> Pharmacy --> Anti-Coagulation Consult Pharmacist (on 3rd page). If no response via FatRedCouch, please page [phone]. Moon daughter stated that any of patient's family can call and obtain an update on patient's status. Speech Language Pathology Facility/Department: [facility] CLINICAL BEDSIDE SWALLOW EVALUATION [...] a small bore straw. Additionally discussed with RACECAR DRIVER, agreeable to assess tomorrow. Recent Chest Xray/CT [...] and liquids between bites. Treatment Plan Requires RACECAR DRIVER Intervention: Yes Duration of Treatment: 2 weeks [...] Education Response: Verbalizes understanding;Needs reinforcement Therapy Time RACECAR DRIVER Individual Minutes Time In: 826 Time Out: 852 Minutes: NEVILLE Jones 10/26/2021 9:20 AM Comprehensive Nutrition Assessment Type and Reason for Visit: Initial (DT referral for wounds) Nutrition Recommendations/Plan: 1. Recommend to continue: Easy to Chew diet with Thin Liquids as currently ordered and safe for patient to participate in. Discussed with: RN, KIOSK SALES REPRESENTATIVE, and RACECAR DRIVER. RACECAR DRIVER to assess tomorrow, best diet and liquid [...] Malnutrition Assessment: Malnutrition Status: Moderate malnutrition (10/25/21 4139) Context: Chronic Illness Findings of the 6 [...] & deltoids),Scapula (trapezius) Fluid Accumulation: Mild Extremities Line Builder Strength: Not Performed Nutrition Assessment: 71 year [...] a small bore straw. Additionally discussed with RACECAR DRIVER, agreeable to assess tomorrow. Nutrition Related Findings: [...] Anthropometric Measures: Height: 5' 7.01" (170.2 cm) [place] Body Weight (IBW): 148 lbs (67 kg) Admission Body Weight: 240 lb (108.9 kg) (stated 10/21/21) Current Body Weight: 205 lb 4 oz (93.1 kg) (10/25/21), 138.7 % IBW. Weight Source: Bed Scale Current BMI (kg/m2): 32.1 Usual Body Weight: 272 lb 11.3 oz (123.7 kg) (05/30/21 and 232.5# noted 08/14/21 at [facility] per EMR Review) % Weight Change (Calculated): -24.7 BMI Categories: Obese Class 1 (BMI 30.0-34.9) Estimated Daily Nutrient Needs: Energy Requirements Based On: Kcal/kg Weight Used for Energy Requirements: [place] (67.15 kg) Energy (kcal/day): 4680-4373 (27-32 kcal/kg IBW) --> increased need d/t wounds Weight Used for Protein Requirements: [place] (67.15 kg) Protein (g/day): 67-101 (1.0-1.5 g protein/kg IBW) Method Used for Fluid Requirements: Other (Comment) Fluid (ml/day): 1215-7136 mL daily or per MD Nutrition Diagnosis: [...] Plan of Care discussed with: Patient, RN, KIOSK SALES REPRESENTATIVE Edwin Goals: Goals: other (specify) Specify Other [...] to determine Puja Almanza RD, LD Contact: *[phone] Or Via FatRedCouch Hematology/Oncology Attending Progress Note SUBJECTIVE: Patient seen [...] IRON, TIBC, FERRITIN No results found for: [id number] No results found for: FOLATE PT 15.6 INR 1.5 CA 19 - 9 is 17 Protein S 138% Protein C 186% ASSESSMENT AND PLAN GI input appreciated. Patient continues with subtherapeutic INR. GI input appreciated. Discussed with patient's staff anesthetist. Will continue monitor. Total visit time > 35 minutes. [facility] Anticoagulation Management Service ([facility]) Inpatient Warfarin Consult HPI: Andrew Sifuentes is a 71 y.o. 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 Past Medical History: Diagnosis Date ED (erectile dysfunction) Hemorrhoids Hydrocephalus, adult (HCC) Kidney stone Neuropathy DRILL OPERATOR PNEUMATIC (ventriculoperitoneal) shunt status Patient is newly referred [...] SNF. 4. Will provide warfarin education including [facility] warfarin booklet, if appropriate. Thank you for this consult Brionna Le, PharmD candidate Josie Gupta [facility], PharmD [facility] Consult Service is available daily [phone]. Please search for covering pharmacist name via FatRedCouch or Groups --> Pharmacy --> Anti-Coagulation Consult Pharmacist (on 3rd page). If no response via PerfectServe, please page [phone]. Progress Note 10/25/2021 9:36 AM Name: Andrew [...] if concern Hydrocephalus Chronic WOODARD's - Revised DRILL OPERATOR PNEUMATIC shunt DC planning - 10/25/21: INR subtherapeutic, [...] if concern Hydrocephalus Chronic WOODARD's - Revised DRILL OPERATOR PNEUMATIC shunt DC planning - Can be DC'd back to ECF once MRI done if no acute findings, MRI is done, defer to hem / onc on plan for that, awaiting chest PA with fluoro Patient seen and chart reviewed. Consult dictated. Will ask GI to assess concerning the etiology of liver lesions. Will continue to monitor. [facility] Anticoagulation Management Service ([facility]) Inpatient Warfarin Consult HPI: Andrew Sifuentes is a 71 y.o. 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 Past Medical History: Diagnosis Date ED (erectile dysfunction) Hemorrhoids Hydrocephalus, adult (HCC) Kidney stone Neuropathy DRILL OPERATOR PNEUMATIC (ventriculoperitoneal) shunt status Patient is newly referred [...] SNF. 4. Will provide warfarin education including [facility] warfarin booklet, if appropriate. Thank you for this consult Brionna Le, PharmD candidate Josie Gupta RPh, PharmD [facility] Consult Service is available daily [phone]. Please search for covering pharmacist name via [employer]RedCouch or Groups --> Pharmacy --> Anti-Coagulation Consult Pharmacist (on 3rd page). If no response via PerfectServe, please page [phone]. Follow up foot wounds Patient is more alert this morning. Waffle boots are on Ulcer left heel ulcer right foot Foot drop PE, chart reviewed. Patient relates that he does not walk at home. c ontinue wound care. Images from the original note were not included. Hospitalist Progress Note 10/23/2021 1:47 PM [phone]: Please page me ([phone]) or perfect serve me for patient care issues. [phone]: Please page IMS night Hospitalist for any [...] if concern Hydrocephalus Chronic WOODARD's - Revised DRILL OPERATOR PNEUMATIC shunt DC planning - Can be DC'd [...] Hemorrhoids Hydrocephalus, adult (HCC) Kidney stone Neuropathy DRILL OPERATOR PNEUMATIC (ventriculoperitoneal) shunt status Medications: sodium chloride warfarin 7.5 mg Oral Once baclofen 10 mg Oral TID bumetanide 2 mg Oral Daily potassium chloride 20 mEq Oral Daily sodium chloride flush 5-40 mL IntraVENous 2 times per day enoxaparin 1 mg/kg SubCUTAneous BID LABS: CBC: Recent Labs 10/21/2120910/22/214 10/23/21 0458 WBC 11.6* 9.4 10.3 RBC [...] of Hospitalist Medicine Inpatient Medical Services PAGER: [phone] Nutrition rescreen completed. Pt referred to RD for foot ulcers. Occupational Therapy Facility/Department: [facility] Occupational Therapy Initial Assessment Name: Andrew Sifuentes : 1950 Date of Service: 10/23/2021 OT eval and treat orders received. Chart reviewed. Per notes pt from [facility], is Boaz lift at baseline, non-ambulatory, and requires assist for all ADLs. Will d/c OT orders. Elizabeth Gutierrez OT Physical Therapy Facility/Department: [facility] Physical Therapy Initial Assessment Name: Andrew Sifuentes : 1950 Date of Service: 10/23/2021 PT eval and treat orders received. Chart reviewed. Per notes pt from [facility], is Boaz lift at baseline, non-ambulatory. Will d/c PT orders. Lloyd Silva PT [facility] Anticoagulation Management Service ([facility]) Inpatient Warfarin Consult HPI: Andrew Sifuentes is a 71 y.o. 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 Past Medical History: Diagnosis Date ED (erectile dysfunction) Hemorrhoids Hydrocephalus, adult (HCC) Kidney stone Neuropathy DRILL OPERATOR PNEUMATIC (ventriculoperitoneal) shunt status Patient is newly referred [...] PharmD [facility] Consult Service is available daily [phone]. Please search for covering pharmacist name via FatRedCouch or Groups --> Pharmacy --> Anti-Coagulation Consult Pharmacist (on 3rd page). If no response via FatRedCouch, please page [phone]. Department of Podiatry Attending Consult Note Reason for Consult: Wound care Requesting Physician: MD Oksana CHIEF COMPLAINT: Foot wounds HISTORY OF PRESENT ILLNESS: The patient is a 71 y.o. male with b/l foot wounds. Patient is awake , but not answering questions. Past Medical History: Diagnosis Date ED (erectile dysfunction) Hemorrhoids Hydrocephalus, adult (HCC) Kidney stone Neuropathy DRILL OPERATOR PNEUMATIC (ventriculoperitoneal) shunt status Past Surgical History: Procedure [...] OT consulted. Will follow . Thank you. [facility] Respiratory Care Department Progress Note As [...] included. Hospitalist Progress Note 10/22/2021 6:33 AM [phone]: Please page me ([phone]) or perfect serve me for patient care issues. [phone]: Please page [facility] Hospitalist for any issues. Subjective: Admit [...] consider MRI if concern Hydrocephalus - Revised DRILL OPERATOR PNEUMATIC shunt Interval History: No overnight issues. Denies [...] no cyanosis or edema and unable to cdc associate BLE, this is old Musculoskeletal: Muscle loss [...] Hemorrhoids Hydrocephalus, adult (HCC) Kidney stone Neuropathy DRILL OPERATOR PNEUMATIC (ventriculoperitoneal) shunt status Medications: sodium chloride baclofen [...] of Hospitalist Medicine Inpatient Medical Services PAGER: [phone] Images from the original note were not included. Hospitalist Progress Note 10/21/2021 5:31 PM [phone]: Please page me ([phone]) or perfect serve me for patient care issues. [phone]: Please page IMS night Hospitalist for any [...] Will need chronic OAC Hydrocephalus - Revised DRILL OPERATOR PNEUMATIC shunt Interval History: No overnight issues. Denies [...] Hemorrhoids Hydrocephalus, adult (HCC) Kidney stone Neuropathy DRILL OPERATOR PNEUMATIC (ventriculoperitoneal) shunt status Medications: sodium chloride baclofen [...] diet Advance Directive: Full Code Discharge planning: TBCAMILLA CARVER CNP Division of Hospitalist Medicine Inpatient Medical Services PAGER: [phone] Family member Triny, sister to patient, called back to the hospital stating that she was returning a call from a provider. Her phone number is [phone] to speak with whomever was attempting to reach out to her. documented in this encounter KALA Zavala Phone: 10-17-2021 Miscellaneous Notes Mr. Sifuentes missed his hospital stay follow-up appointment w. Dr. Lim today. Called to Reschedule. Could not get through. "Subscriber you have dialed not in service" - was the automated voice mail. Unable to leave VM. No other phone# available. aRmya Negro [employer] Neurosurgery/Ortho Spine documented in this encounter [facility] 08-19-2021 Note [facility] 08-19-2021 Note [facility] 08-18-2021 Note [facility] 08[facility]18-2021 Note [facility] 08-17-2021 Note [facility] 08-17-2021 Note [facility] 08-16-2021 Note [facility] 08-16-2021 Note HNO ID: [id number] Author: Katt Kelsey DO Service: Hospital Medicine Author Type: Physician Type: Plan of Care Filed: 08/16/2021 12:26 PM Note Text: Spoke with RN that line is a PICC. Katt Kelsey DO 08/16/2021 12:26 PM [facility] 08-16-2021 Note [facility] 08-16-2021 Note [facility] 08-15-2021 Note [facility] 08[facility]15-2021 Note [facility] 08[facility]15-2021 Note [facility] 08-14-2021 Note [facility] 08[facility]14-2021 Note [facility] 08-13-2021 Note [facility] 08-13-2021 Note [facility] 08-13-2021 Note [facility] 08-13-2021 Note HNO ID: [id number] Author: Interface Note Service: ? Author Type: ? Type: Progress Notes Filed: 08/13/2021 3:10 AM Note Text: Epic Scheduled Downtime: 08/13/2021 1:08:47 AM to 08/13/2021 2:53:47 AM [facility] 08-12-2021 Note [facility] 08-12-2021 Note [facility] 08[facility]12-2021 Note [facility] 08-11-2021 Note [facility] 08[facility]11-2021 Note [facility] 08[facility]11-2021 Note [facility] 08-11-2021 Note [facility] 08[facility]11-2021 Note [facility] 08-11-2021 Note [facility] 08-10-2021 Note [facility] 08-10-2021 Note [facility] 08-10-2021 Note [facility] 08-10-2021 Note [facility] 08-09-2021 Note HNO ID: [id number] Author: Shannon Brooks RN Service: ? Author Type: Registered Nurse Type: Nursing Progress Note Filed: 08/09/2021 7:33 PM Note Text: Report called to unit [facility] 08-09-2021 Note [facility] 08-09-2021 Note [facility] 08[facility]09-2021 Note [facility] 08-08-2021 Note [facility] 08[facility]08-2021 Note [facility] 08[facility]08-2021 Note [facility] 08-07-2021 Note [facility] 08-07-2021 Note [facility] 08-07-2021 Note [facility] 08[facility]07-2021 Note [facility] 08-07-2021 Note [facility] 08-06-2021 Note [facility] 08[facility]06-2021 Note [facility] 08-06-2021 Note [facility] 08-05-2021 Note [facility] 08[facility]05-2021 Note [facility] 08-05-2021 Note [facility] 08-04-2021 Note [facility] 08-04-2021 Note [facility] 08[facility]04-2021 Note [facility] 08-03-2021 Note [facility] 08-03-2021 Note [facility] 08[facility]03-2021 Note [facility] 08-02-2021 Note [facility] 08[facility]02-2021 Note [facility] 08-02-2021 Note [facility] 08-01-2021 Note [facility] 08-01-2021 Note [facility] 08-01-2021 Note [facility] 08-01-2021 Note [facility] 07-31-2021 Note [facility] 07-31-2021 Note [facility] 07-30-2021 Note [facility] 07-30-2021 Note [facility] 07-30-2021 Note [facility] 07-29-2021 Note [facility] 07-29-2021 Note [facility] 07-29-2021 Note [facility] 07-28-2021 Note [facility] 07-28-2021 Note [facility] 07[facility]28-2021 Note [facility] 07-27-2021 Note [facility] 07[facility]27-2021 Note [facility] 07-27-2021 Note [facility] 07-26-2021 Note [facility] 07-26-2021 Note [facility] 07-26-2021 [facility] 07-26-2021 [facility] 07-26-2021 [facility] 07-25-2021 [facility] 07-25-2021 Note [facility] 07-25-2021 Note [facility] 07-25-2021 Note [facility] 07-24-2021 Note [facility] 07[facility]24-2021 Note [facility] 07-24-2021 Note [facility] 07-23-2021 Note [facility] 07-23-2021 Note [facility] 07-23-2021 Note [facility] 07-23-2021 Note [facility] 07[facility]23-2021 Note [facility] 07-22-2021 Note [facility] 07-22-2021 Note [facility] 07-22-2021 Note [facility] 07-21-2021 Note [facility] 07-21-2021 Note [facility] 07-21-2021 Note [facility] 07-21-2021 History of Past i [...] history of fever, elevated WBC, RP hematoma DRILL OPERATOR PNEUMATIC shunt tip grew anaerobic gram positive cocci 06/08/2021 PLAN: DRILL OPERATOR PNEUMATIC shunt tip sent to [facility] main, awaiting cx Continue Meropenem [...] - following CSF studies; 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 for INSURANCE CLAIM APPROVER infection at this time - ID following- Continue antibiotics: Meropenem -CSF leak from EVD site, appreciate NSGY recs> stat repeat CTH on 06/07 d/t concern for CSF leak, cephalematoma, CTH unremarkable -Tolerating TF - SBT WTE - PICC line placed documented as of this encounter (statuses as of 10/17/2021) [facility]03-17-2022 [facility]03-16-2022 [facility]03-16-2022 [facility]03-16-2022 Note [facility]03-16-2022 [facility] 07-19-2021 [facility]03-15-2022 [facility]03-15-2022 [facility]03-14-2022 [facility]03[facility]14-2022 [facility]03-13-2022 [facility]03-13-2022 [facility]03-12-2022 Note [facility]03-12-2022 [facility] 07-15-2021 [facility]03-11-2022 [facility]03-10-2022 [facility]03-10-2022 [facility]03-10-2022 [facility]03-09-2022 [facility]03-09-2022 [facility]03-09-2022 Note [facility]03-09-2022 [facility] 07-12-2021 [facility]03-08-2022 [facility]03-07-2022 [facility]03-07-2022 [facility]03-07-2022 [facility]03-07-2022 [facility]03-06-2022 [facility]03-06-2022 Note [facility]03-05-2022 [facility] 07-09-2021 [facility]03-05-2022 [facility]03-05-2022 [facility]03-05-2022 NoteHNO ID: [id number] Author: Lizette Valderrama RN Service: Nursing Author Type: Registered Nurse Type: Nursing Progress Note Filed: 07/09/2021 1:41 AM Note Text: Report called to [facility]03-04-2022 NoteHNO ID: [id number] Author: Lizette Valderrama RN Service: Nursing Author Type: Registered Nurse Type: Nursing Progress Note Filed: 07/08/2021 8:57 PM Note Text: [address] back to PACU [address] [place], [place] [address]12903-04-2022 NoteHNO ID: [id number] Author: Sukhi Chery APRN.CNP Service: ? Author Type: Nurse Practitioner Type: Progress Notes Filed: 07/09/2021 6:46 PM Note Text: Connected Care Unit Progress Note Patient Name: Andrew Sifuentes Patient Facility: [facility] Admit Date 06/28/2021 Level of Care: Skilled [...] Dept Phone 07/21/2021 11:00 AM NICOLE LIM [phone] HPI: (Per Dr. Beltran) Andrew Sifuentes is being seen today for penitentiary facility (SNF) admission AND management of weakness, tube feed, infected retroperitoneal infection and seizure. ? This is a 71 year old male who presents from [facility] with primary admitting diagnosis of Seizure, [...] CT brain concerning for hydrocephalus. Tip of DRILL OPERATOR PNEUMATIC shunt was found to be in the [...] slow to respond. Ordered to transfer to [facility] ED for evaluation of neurological and [...] changes in co (more content not included)... [facility]03-04-2022 [facility]03-04-2022 [facility]03-02-2022 NoteHNO ID: [id number] Author: Sukhi Chery APRN.CNP Service: ? Author Type: Nurse Practitioner Type: Progress Notes Filed: 07/09/2021 6:20 PM Note Text: Connected Care Unit Progress Note Patient Name: Andrew Sifuentes Patient Facility: [facility] Admit Date 06/28/2021 Level of Care: Skilled [...] Dept Phone 07/21/2021 11:00 AM NICOLE LIM [phone] HPI: (Per Dr. Beltran) Andrew Sifuentes is being seen today for penitentiary facility (SNF) admission AND management of weakness, tube feed, infected retroperitoneal infection and seizure. ? This is a 71 year old male who presents from [facility] with primary admitting diagnosis of Seizure, [...] CT brain concerning for hydrocephalus. Tip of DRILL OPERATOR PNEUMATIC shunt was found to be in the [...] Pharynx: Oropharynx is clear. (more content not included)...[facility]02-28-2022 NoteHNO ID: [id number] Author: Sukhi Chery APRN.VICTORIANO Service: ? Author Type: Nurse Practitioner Type: Progress Notes Filed: 07/09/2021 6:07 PM Note Text: Connected Care Unit Progress Note Patient Name: Andrew Sifuentes Patient Facility: [facility] Admit Date 06/28/2021 Level of Care: Skilled [...] but nursing notes it was drawn by merchandise flow team leader as vancomycin was being infused; reordered trough - PICC Line Intact - No fevers or chills per patient or staff (R53.81) Debility - Certify therapies - Maintain high falls risk precautions - pt/staff verbalize understanding validated via teach back - Monitor safety awareness Appointments for Next 60 Days Date Time Provider Location Dept Phone 07/21/2021 11:00 AM NICOLE LIM [phone] HPI: (Per Dr. Beltran) Andrew Sifuentes is being seen today for penitentiary facility (SNF) admission AND management of weakness, tube feed, infected retroperitoneal infection and seizure. ? This is a 71 year old male who presents from [facility] with primary admitting diagnosis of Seizure, [...] CT brain concerning for hydrocephalus. Tip of DRILL OPERATOR PNEUMATIC shunt was found to be in the [...] to facility records. OBJECTIVE: Labs/diagnostics: 07/04/2021 Glucose=91 Mu=846 K=3.8 Uk=884 CO2=24 BUN=14 Creatinine=0.5 ZYD=933 Ca=9.0 Protein,Total=6.7 Albumin=3.6 MjnAhbf=066 AST=15 ALT=21 Bilirubin,Totall=0.5 WBC=10.7 RBC=4.04 Hgb=10.9 Hct=35.3 Nmsircjz=413 VancomycinTr (more content not included)...[facility]02-24-2022 NoteHNO ID: [id number] Author: Sukhi Chery APRN.VICTORIANO Service: ? Author Type: Nurse Practitioner Type: Progress Notes Filed: 07/09/2021 5:43 PM Note Text: Connected Care Unit Progress Note Patient Name: Andrew Sifuentes Patient Facility: [facility] Admit Date 06/28/2021 Level of Care: Skilled [...] Phone 07/21/2021 11:00 AM NICOLE LIM [facility] [phone] HPI: (Per Dr. Beltran) Andrew Sifuentes is being seen today for penitentiary facility (SNF) admission AND management of weakness, tube feed, infected retroperitoneal infection and seizure. ? This is a 71 year old male who presents from [facility] with primary admitting diagnosis of Seizure, [...] CT brain concerning for hydrocephalus. Tip of DRILL OPERATOR PNEUMATIC shunt was found to be in the [...] to facility records. OBJECTIVE: Labs/diagnostics: 07/01/2021 Glucose=83 Le=565 K=4.1 Dc=322 CO2=27 BUN=22 Creatinine=0.6 ZBL=102 Ca=8.7 WBC=10.8 RBC=3.40 Hgb=9.3 Hct=29.9 Vhnminof=801 Vital Signs: BP 128/80 Pulse 77 Temp 36.7 ?C (98 ?F) Resp 20 Ht 182.9 cm (6') Wt 113 kg (249 lb 3.2 oz) SpO2 96% BMI 33.80 kg/m? Physical Exam: Physical Exam Vitals reviewed. Constitutional: General: He is not in acute distress. (more content not included)...[facility]02-22-2022 [facility]02-22-2022 [facility]02-21-2022 [facility]02-21-2022 Note [facility]02-20-2022 [facility] 06-26-2021 [facility]02[facility]19-2022 [facility]02[facility]19-2022 [facility]02-18-2022 [facility]02[facility]18-2022 [facility]02-18-2022 [facility]02-17-2022 [facility]02-17-2022 Note [facility]02-17-2022 [facility] 06-22-2021 NoteHNO ID: [id number] Author: Xiomy England RN Service: Nursing Author Type: Registered Nurse Type: Nursing Progress Note Filed: 06/22/2021 7:22 PM Note Text: RT contacted as pt has wheezing auscultated and same auditory. For prn Treatment.[facility]02-16-2022 [facility]02-16-2022 [facility]02-16-2022 [facility]02-16-2022 [facility]02[facility]16-2022 [facility]02[facility]15-2022 [facility]02-15-2022 Note [facility]02-15-2022 [facility] 06-21-2021 [facility]02-14-2022 [facility]02-14-2022 [facility]02-14-2022 [facility]02-14-2022 [facility]02-14-2022 [facility]02-13-2022 [facility]02-13-2022 Note [facility]02-13-2022 [facility] 06-19-2021 [facility]02-13-2022 [facility]02-12-2022 [facility]02[facility]12-2022 [facility]02[facility]12-2022 [facility]02-12-2022 [facility]02-12-2022 [facility]02-12-2022 Note [facility]02-12-2022 NoteHNO ID: [id number] Author: Ambar Note Service: ? Author Type: ? Type: Progress Notes Filed: 06/18/2021 3:10 AM Note Text: Epic Scheduled Downtime: 06/18/2021 1:00:00 AM to 06/18/2021 2:27:00 [facility]02-11-2022 Note [facility]02-11-2022 [facility] 06-17-2021 [facility]02-11-2022 [facility]02-11-2022 [facility]02-10-2022 [facility]02-10-2022 [facility]02[facility]10-2022 [facility]02[facility]10-2022 [facility]02-10-2022 Note [facility]02-10-2022 [facility] 06-15-2021 [facility]02-09-2022 NoteHNO ID: [id number] Author: Lamonte Kline DO Service: Neurology ICU Author Type: Resident Type: Plan of Care Filed: 06/15/2021 6:21 PM Note Text: Patient's daughter Melissa updated on plan of care and critical condition, all questions answered.[facility]02-09-2022 [facility]02-09-2022 [facility]02-09-2022 [facility]02-09-2022 [facility]02-09-2022 Note [facility]02-09-2022 [facility] 06-15-2021 [facility]02-08-2022 [facility]02-08-2022 [facility]02-08-2022 [facility]02-08-2022 [facility]02-07-2022 [facility]02-07-2022 [facility]02-07-2022 Note [facility]02-07-2022 [facility] 06-12-[facility]02-06-2022 [facility]02-05-[facility]02-04-2022 [facility]02-04-2022 [facility]02-04-2022 Note [facility]02-04-2022 [facility] 06-09-2021 [facility]02-03-2022 [facility]02-03-2022 [facility]02-03-2022 [facility]02-02-2022 [facility]02-02-2022 NoteHNO ID: [id number] Author: Luis Diaz RN Service: ? Author Type: Registered Nurse Type: Nursing Progress Note Filed: 06/08/2021 9:23 AM Note Text: Patient off the floor to OR at this time.[facility]02-02-2022 [facility]02-02-2022 [facility] 06-08-2021 NoteHNO ID: [id number] Author: Eloise Samuel RN Service: ? Author Type: Registered Nurse Type: Nursing Progress Note Filed: 06/08/2021 12:46 AM Note Text: Dr. Brito notified of changes throughout shift. No new orders [facility] 06-07-2021 NoteHNO ID: [id number] Author: Eloise Samuel RN Service: ? Author Type: Registered Nurse Type: Nursing Progress Note Filed: 06/07/2021 8:01 PM Note Text: Neuro surg MANAGER PROGRAMS notified of downward deviation of pupils. No new orders at this time.[facility]02-01-2022 [facility]02-01-2022 [facility]02-01-2022 [facility]02-01-2022 [facility]01-31-2022 [facility]01-31-2022 [facility]01-31-2022 Note [facility]01-31-2022 [facility] 06-05-2021 [facility]01-30-2022 [facility]01-30-2022 [facility]01-29-2022 [facility]01-29-2022 NoteHNO ID: [id number] Author: Jermaine Miller PA-C Service: Neurosurgery Author Type: Physician Education Administrative Assistant Type: Plan of Care Filed: 06/04/2021 1:59 PM Note Text: Discussed with Dr. Charles CT brain results. At this time, continue with EVD at [address] [place], [place] [address]01-29-2022 [facility] 06-04-2021 [facility]01-28-2022 [facility]01-28-2022 NoteHNO ID: [id number] Author: Mauricio Frank DO Service: Neurology ICU Author Type: Physician Type: Plan of Care Filed: 06/03/2021 2:38 PM Note Text: I spoke with Melissa and updated her over the phone. Mauricio Frank, [facility]01-28-2022 [facility]01-28-2022 [facility]01-27-2022 [facility]01-27-2022 [facility]01-27-2022 Note [facility]01-26-2022 [facility] 06-01-2021 [facility]01-26-2022 [facility]01-26-2022 [facility]01-26-2022 [facility]01-25-2022 [facility]01-25-2022 [facility]01-25-2022 [facility]01-25-2022 Note [facility]01-25-2022 [facility] 05[facility]31-[facility] Diagnosis Leg swelling- Primary Swelling of limb Acute deep vein thrombosis (DVT) of proximal vein of lower extremity, unspecified laterality (HCC) DVT, lower extremity, recurrent, unspecified laterality (HCC) Moderate malnutrition (HCC) Malnutrition of moderate degree History of seizures Personal history of other disorders of nervous system and sense organs documented in this encounter [facility] Work Phone: Evaluation noteNo assessment information available [facility] Work Phone: Evaluation note* Diagnosis Other fatigue- Primary [facility] Work Phone: Evaluation note* Diagnosis Heel ulceration, left, with unspecified severity (HCC)- Primary documented in this encounter [facility] Work Phone: Evaluation note* Diagnosis Fall, initial encounter- Primary Anticoagulated Encounter for long-term (current) use of anticoagulants documented in this encounter [facility] Work Phone: Evaluation note* Diagnosis Left flank pain- Primary Abdominal pain, unspecified site Calculus of ureter Disease of prostate Unspecified disorder of prostate BPH with urinary obstruction Hypertrophy of prostate with urinary obstruction and other lower urinary tract symptoms (LUTS) [facility] Left flank pain Abdominal pain, unspecified site Calculus of ureter [facility] Left flank pain- Primary Abdominal pain, unspecified site BPH with urinary obstruction Hypertrophy of prostate with urinary obstruction and other lower urinary tract symptoms (LUTS) History of kidney stones documented in this encounter [facility] HealthInstructions* Name Dates Details Instructions not documented [id number] Work Phone: Instructions* Name Dates Details Instructions not documented [id number] [address] [place] Work Phone: Reason for referral (narrative)No reason for referral [facility] Work Phone: Advance Directives No Advanced Directives Records FoundDocuments on File Type Date Recorded Patient Die Engraving Supervisor Expl anation Advance Directives and Living Will Power of Mainspring Strip Inspector Documents on File Type Date Recorded Patient Die Engraving Supervisor Expl anation Advance Directive(s) 06/02/2021 2:45 PM [...] Maker Relationship: 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 Adult Children (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) Documents on File Type Date Recorded Patient Die Engraving Supervisor Expl anation ACP-Advance Directive ACP-Power of Mainspring Strip Inspector Latest Code Status on File Code Status Date Activated Date Inactivated Comments Full Code 10/21/2021 4:09 AM Healthcare Agents on File Name Relationship Healthcare Agent Relationshi p Communication Melissa Gurpreet Child Primary Decision Maker deann Gurpreet Child Secondary Decision Maker Documents on File Type Date Recorded Patient Die Engraving Supervisor Expl anation ACP-Advance Directive ACP-Power of Mainspring Strip Inspector ACP-Do Not Resuscitate 11/01/2021 7:03 AM Latest Code Status on File Code Status Date Activated Date Inactivated Comments Full Code 10/21/2021 4:09 AM 10/29/2021 7:25 PM Healthcare Agents on File Name Relationship Healthcare Agent Relationshi p Communication Melissa Gurpreet Child Primary Decision Maker deann Gurpreet Child Secondary Decision Maker Documents on File Type Date Recorded Patient Die Engraving Supervisor Expl anation ACP-Do Not Resuscitate 11/03/2021 10:15 AM ACP-Do Not Resuscitate 11/01/2021 7:03 AM Healthcare Agents on File Name Relationship Healthcare Agent Relationshi p Communication Melissa Gurpreet Child Primary Decision Maker deann Gurpreet Child Secondary Decision Maker Documents on File Type Date Recorded Patient Die Engraving Supervisor Expl anation ACP-Do Not Resuscitate 11/03/2021 10:15 [...] Documents on File Type Date Recorded Patient Die Engraving Supervisor Expl anation DNR (Do Not Resuscitate) 10/31/2021 DNR (Do Not Resuscitate) 10/21/2021 Documents on File Type Date Recorded Patient Die Engraving Supervisor Expl anation DNR (Do Not Resuscitate) 10/31/2021 [...] WORK LABWORK Chief Complaint LAB WORK LABWORK JAIL LAB WORK JAIL LABWORK Chief Complaint LAB WORK LABWORK JAIL LAB WORK JAIL LABWORK LABWORK LABWORK JAIL LAB WORK JAIL LABWORK JAIL LAB WORK LABWORK JAIL LAB WORK LABWORK JAIL LABWORK Chief Complaint LAB WORK LABWORK JAIL LAB WORK JAIL LABWORK LABWORK LABWORK JAIL LAB WORK JAIL LABWORK JAIL LAB WORK LABWORK JAIL LAB WORK LABWORK JAIL LABWORK JAIL LABWORK LABWORK Chief Complaint LAB WORK LABWORK JAIL LAB WORK JAIL LABWORK LABWORK LABWORK JAIL LAB WORK JAIL LABWORK JAIL LAB WORK LABWORK JAIL LAB WORK LABWORK JAIL LABWORK JAIL LABWORK LABWORK JAIL LAB WORK Chief Complaint LABWORK JAIL LAB WORK JAIL LABWORK LABWORK LABWORK JAIL LAB WORK JAIL LABWORK JAIL LAB WORK LABWORK JAIL LAB WORK LABWORK JAIL LABWORK JAIL LABWORK LABWORK LABWORK JAIL LAB WORK Chief Complaint LABWORK JAIL LAB WORK JAIL LABWORK LABWORK LABWORK JAIL LAB WORK JAIL LABWORK JAIL LAB WORK LABWORK JAIL LAB WORK LABWORK JAIL LABWORK JAIL LABWORK LABWORK LABWORK JAIL LAB WORK LABWORK JAIL LABWORK JAIL LAB WORK JAIL LABWORK Chief Complaint JAIL LAB WOR K JAIL LABWORK LABWORK LABWORK JAIL LAB WORK JAIL LABWORK JAIL LAB WORK LABWORK JAIL LAB WORK LABWORK JAIL LABWORK JAIL LABWORK LABWORK LABWORK JAIL LAB WORK LABWORK JAIL LABWORK JAIL LAB WORK JAIL LABWORK JAIL LAB WORK Chief Complaint JAIL LABWORK LABWORK LABWORK JAIL LAB WORK JAIL LABWORK JAIL LAB WORK LABWORK JAIL LAB WORK LABWORK JAIL LABWORK JAIL LABWORK LABWORK LABWORK JAIL LAB WORK LABWORK JAIL LABWORK JAIL LAB WORK JAIL LABWORK LABWORK JAIL LAB WORK Chief Complaint JAIL LAB WOR K JAIL LABWORK JAIL LAB WORK LABWORK JAIL LAB WORK LABWORK JAIL LABWORK JAIL LABWORK LABWORK LABWORK JAIL LAB WORK LABWORK JAIL LABWORK JAIL LAB WORK JAIL LABWORK LABWORK LABWORK JAIL LAB WORK JAIL PATIENT JAIL LABWORK JAIL LABWORK Chief Complaint LABWORK JAIL LAB WORK LABWORK JAIL LABWORK JAIL LABWORK LABWORK LABWORK JAIL LAB WORK LABWORK JAIL LABWORK JAIL LAB WORK JAIL LABWORK LABWORK LABWORK JAIL LAB WORK JAIL PATIENT JAIL LABWORK JAIL LABWORK JAIL LAB WORK Chief Complaint LABWORK JAIL LABWORK JAIL LABWORK LABWORK LABWORK JAIL LAB WORK LABWORK JAIL LABWORK JAIL LAB WORK JAIL LABWORK LABWORK LABWORK JAIL LAB WORK JAIL PATIENT JAIL LABWORK JAIL LABWORK JAIL LAB WORK JAIL LAB WORK JAIL LAB WORK Chief Complaint LABWORK LABWORK JAIL LAB WORK JAIL PATIENT JAIL LABWORK JAIL LABWORK JAIL LAB WORK JAIL LAB WORK JAIL LAB WORK JAIL LABWORK JAIL LABWORK LABWORK JAIL LAB WORK LABWORK Chief Complaint JAIL LAB WOR K JAIL PATIENT JAIL LABWORK JAIL LABWORK JAIL LAB WORK JAIL LAB WORK JAIL LAB WORK JAIL LABWORK JAIL LABWORK LABWORK JAIL LAB WORK LABWORK JAIL LABWORK Chief Complaint JAIL PATIENT JAIL LABWORK JAIL LABWORK JAIL LAB WORK JAIL LAB WORK JAIL LAB WORK JAIL LABWORK JAIL LABWORK LABWORK JAIL LAB WORK LABWORK JAIL LABWORK JAIL LABWORK Chief Complaint JAIL LABWORK JAIL LAB WORK JAIL LAB WORK JAIL LAB WORK JAIL LABWORK JAIL LABWORK LABWORK JAIL LAB WORK LABWORK JAIL LABWORK JAIL LABWORK JAIL LABWORK Chief Complaint JAIL LABWORK JAIL LAB WORK JAIL LAB WORK JAIL LAB WORK JAIL LABWORK JAIL LABWORK LABWORK JAIL LAB WORK LABWORK JAIL LABWORK JAIL LABWORK JAIL LABWORK JAIL LABWORK Chief Complaint JAIL LABWORK LABWORK JAIL LAB WORK LABWORK JAIL LABWORK JAIL LABWORK JAIL LABWORK JAIL LABWORK JAIL LABWORK LABWORK JAIL LABWORK Chief Complaint LABWORK JAIL LAB WORK LABWORK JAIL LABWORK JAIL LABWORK JAIL LABWORK JAIL LABWORK JAIL LABWORK LABWORK LABWORK JAIL LABWORK JAIL LAB WORK JAIL LABWORK JAIL LAB WORK Chief Complaint LABWORK JAIL LAB WORK LABWORK JAIL LABWORK JAIL LABWORK JAIL LABWORK JAIL LABWORK JAIL LABWORK LABWORK LABWORK JAIL LABWORK JAIL LAB WORK JAIL LABWORK JAIL LAB WORK JAIL LABWORK Chief Complaint LABWORK JAIL LAB WORK LABWORK JAIL LABWORK JAIL LABWORK JAIL LABWORK JAIL LABWORK JAIL LABWORK LABWORK LABWORK JAIL LABWORK JAIL LAB WORK JAIL LABWORK JAIL LAB WORK JAIL LABWORK LABWORK Chief Complaint JAIL LABWORK JAIL LABWORK JAIL LABWORK JAIL LABWORK JAIL LABWORK LABWORK LABWORK JAIL LABWORK JAIL LAB WORK JAIL LABWORK JAIL LAB WORK JAIL LABWORK LABWORK JAIL LABWORK Chief Complaint JAIL LABWORK JAIL LABWORK JAIL LABWORK JAIL LABWORK JAIL LABWORK LABWORK LABWORK JAIL LABWORK JAIL LAB WORK JAIL LABWORK JAIL LAB WORK JAIL LABWORK LABWORK JAIL LABWORK LABWORK Chief Complaint JAIL LABWORK LABWORK LABWORK JAIL LABWORK JAIL LAB WORK JAIL LABWORK JAIL LAB WORK JAIL LABWORK LABWORK JAIL LABWORK LABWORK JAIL LAB WORK JAIL LAB WORK JAIL LABWORK Chief Complaint LABWORK JAIL LABWORK LABWORK JAIL LAB WORK JAIL LAB WORK JAIL LABWORK JAIL LABWORK JAIL LAB WORK JAIL LAB WORK JAIL LAB WORK LABWORK JAIL LABWORK Chief Complaint JAIL LAB WOR K JAIL LAB WORK JAIL LABWORK JAIL LABWORK JAIL LAB WORK JAIL LAB WORK JAIL LAB WORK LABWORK JAIL LABWORK LABWORK JAIL LAB WORK JAIL LAB WORK Chief Complaint JAIL LAB WOR K JAIL LABWORK JAIL LABWORK JAIL LAB WORK JAIL LAB WORK JAIL LAB WORK LABWORK JAIL LABWORK LABWORK JAIL LAB WORK JAIL LAB WORK Chief Complaint JAIL LABWORK JAIL LABWORK JAIL LAB WORK JAIL LAB WORK JAIL LAB WORK LABWORK JAIL LABWORK LABWORK JAIL LAB WORK JAIL LAB WORK JAIL LABWORK LABWORK LABWORK Chief Complaint JAIL LAB WOR K JAIL LAB WORK JAIL LAB WORK LABWORK JAIL LABWORK LABWORK JAIL LAB WORK JAIL LAB WORK JAIL LABWORK LABWORK LABWORK LABWORK LABWORK LABWORK Chief Complaint JAIL LAB WOR K LABWORK JAIL LABWORK LABWORK JAIL LAB WORK JAIL LAB WORK JAIL LABWORK LABWORK LABWORK LABWORK LABWORK JAIL LABWORK JAIL LAB WORK LABWORK JAIL LAB WORK JAIL LAB WORK Chief Complaint JAIL LAB WOR K LABWORK JAIL LABWORK LABWORK JAIL LAB WORK JAIL LAB WORK JAIL LABWORK LABWORK LABWORK LABWORK LABWORK JAIL LABWORK JAIL LAB WORK LABWORK JAIL LAB WORK JAIL LAB WORK JAIL LABWORK Chief Complaint JAIL LAB WOR K JAIL LAB WORK JAIL LABWORK LABWORK LABWORK LABWORK LABWORK JAIL LABWORK JAIL LAB WORK LABWORK JAIL LAB WORK JAIL LAB WORK JAIL LABWORK NUSING HOME LAB WORK Chief Complaint JAIL LAB WOR K JAIL LABWORK LABWORK LABWORK LABWORK LABWORK JAIL LABWORK JAIL LAB WORK LABWORK JAIL LAB WORK JAIL LAB WORK JAIL LABWORK NUSING HOME LAB WORK LABWORK Chief Complaint JAIL LAB WOR K JAIL LABWORK LABWORK LABWORK LABWORK LABWORK JAIL LABWORK JAIL LAB WORK LABWORK JAIL LAB WORK JAIL LAB WORK JAIL LABWORK NUSING HOME LAB WORK JAIL LABWORK LABWORK Chief Complaint LABWORK JAIL LAB WORK JAIL LAB WORK JAIL LABWORK NUSING HOME LAB WORK JAIL LABWORK LABWORK JAIL LABWORK JAIL LAB WORK LABWORK LABWORK Chief Complaint NUSING HOME LAB WORK JAIL LABWORK LABWORK JAIL LABWORK JAIL LAB WORK LABWORK JAIL LAB WORK LABWORK LABWORK Chief Complaint NUSING HOME LAB WORK JAIL LABWORK LABWORK JAIL LABWORK JAIL LAB WORK LABWORK JAIL LAB WORK LABWORK JAIL LAB WORK LABWORK Chief Complaint JAIL LABWORK LABWORK JAIL LABWORK JAIL LAB WORK LABWORK JAIL LAB WORK LABWORK JAIL LAB WORK LABWORK LABWORK Chief Complaint JAIL LABWORK LABWORK JAIL LABWORK JAIL LAB WORK LABWORK JAIL LAB WORK LABWORK JAIL LAB WORK LABWORK LABWORK LABWORK Chief Complaint JAIL LABWORK LABWORK JAIL LABWORK JAIL LAB WORK LABWORK JAIL LAB WORK LABWORK JAIL LAB WORK LABWORK LABWORK LABWORK LABWORK Chief Complaint JAIL LABWORK LABWORK JAIL LABWORK JAIL LAB WORK LABWORK JAIL LAB WORK LABWORK JAIL LAB WORK LABWORK LABWORK JAIL LAB WORK LABWORK LABWORK LABWORK Chief Complaint LABWORK JAIL LABWORK JAIL LAB WORK LABWORK JAIL LAB WORK LABWORK JAIL LAB WORK LABWORK LABWORK JAIL LAB WORK LABWORK LABWORK LABWORK LABWORK LABWORK LABWORK LABWORK Chief Complaint JAIL LABWORK JAIL LAB WORK LABWORK JAIL LAB WORK LABWORK JAIL LAB WORK LABWORK LABWORK JAIL LAB WORK LABWORK LABWORK LABWORK LABWORK LABWORK LABWORK LABWORK LABWORK Chief Complaint LABWORK JAIL LAB WORK LABWORK JAIL LAB WORK LABWORK LABWORK JAIL LAB WORK LABWORK LABWORK LABWORK LABWORK LABWORK LABWORK LABWORK LABWORK LABWORK Chief Complaint JAIL LABWORK LABWORK LABWORK LABWORK LABWORK JAIL LABWORK JAIL LAB WORK LABWORK JAIL LAB WORK JAIL LAB WORK JAIL LABWORK NUSING HOME LAB WORK JAIL LABWORK LABWORK JAIL LABWORK JAIL LAB WORK Chief Complaint Admit Date JAIL LAB WORK March 13, 2024 5:00am LABWORK March 14, 2024 5 :00am JAIL LAB WORK March 17 5:00am JAIL LAB WORK March 18 5:00am JAIL LAB WORK March 19 4:00am JAIL LAB WORK March 20 5:00am JAIL LAB WORK March 24 5:00am JAIL LAB WORK March 27 5:00am LABWORK March 31, 2024 5:00am JAIL LAB WORK April 04 4 5:00am LABWORK April 07, 2024 5 :00am JAIL LAB WORK April 10, 2024 5:00am JAIL LAB WORK April 14, 2024 5:00am JAIL LAB WORK April 17 5:00am LABWORK April 21, 2024 5:00am JAIL LAB WORK April 24 4:00am LABWORK April 28, 2024 5:00am JAIL LAB WORK May 01 4:00am JAIL LAB WORK May 05 5:00am JAIL LAB WORK May 08, 2024 5:00am JAIL LAB WORK May 09, 2024 4:00am LABWORK May 12, 2024 5: 00am JAIL LAB WORK May 15, 2024 5:00am JAIL LAB WORK May 19, 2024 4:00am JAIL LAB WORK May 20, 2024 5:00am JAIL LAB WORK May 22, 2024 5:00am LABWORK May 26, 2024 5 :00am JAIL LAB WORK May 29, 2024 5:00am JAIL LAB WORK June 02, 2024 5:00am JAIL LAB WORK June 05, 2024 5:00am LABWORK June 09, 2024 5 :00am JAIL LAB WORK June 12, 2024 5:00am JAIL LAB WORK June 16 5:00am JAIL LAB WORK June 19 5:00am LABWORK June 23, 2024 5:00am JAIL LAB WORK June 26 5:00am JAIL LAB WORK June 30 5:00am Chief Complaint Admit Date LABWORK April 07, 2024 5 :00am JAIL LAB WORK April 10, 2024 5:00am JAIL LAB WORK April 14, 2024 5:00am JAIL LAB WORK April 17 5:00am LABWORK April 21, 2024 5:00am JAIL LAB WORK April 24 4:00am LABWORK April 28, 2024 5:00am JAIL LAB WORK May 01 4:00am JAIL LAB WORK May 05 5:00am JAIL LAB WORK May 08, 2024 5:00am JAIL LAB WORK May 09, 2024 4:00am LABWORK May 12, 2024 5: 00am JAIL LAB WORK May 15, 2024 5:00am JAIL LAB WORK May 19, 2024 4:00am JAIL LAB WORK May 20, 2024 5:00am JAIL LAB WORK May 22, 2024 5:00am LABWORK May 26, 2024 5 :00am JAIL LAB WORK May 29, 2024 5:00am JAIL LAB WORK June 02, 2024 5:00am JAIL LAB WORK June 05, 2024 5:00am LABWORK June 09, 2024 5 :00am JAIL LAB WORK June 12, 2024 5:00am JAIL LAB WORK June 16 5:00am JAIL LAB WORK June 19 5:00am LABWORK June 23, 2024 5:00am JAIL LAB WORK June 26 5:00am JAIL LAB WORK June 30 5:00am JAIL LAB WORK July 03 5:00am JAIL LAB WORK July 07, 2024 4: 00am LABWORK July 11, 2024 5:00 am LABWORK July 14, 2024 5:0 0am JAIL LAB WORK July 17, 2024 4 :00am JAIL LAB WORK July 24, 2024 4 :00am Chief Complaint Admit Date JAIL LAB WORK April 14, 2024 5:00am JAIL LAB WORK April 17 5:00am LABWORK April 21, 2024 5:00am JAIL LAB WORK April 24 4:00am LABWORK April 28, 2024 5:00am JAIL LAB WORK May 01 4:00am JAIL LAB WORK May 05 5:00am JAIL LAB WORK May 08, 2024 5:00am JAIL LAB WORK May 09, 2024 4:00am LABWORK May 12, 2024 5: 00am JAIL LAB WORK May 15, 2024 5:00am JAIL LAB WORK May 19, 2024 4:00am JAIL LAB WORK May 20, 2024 5:00am JAIL LAB WORK May 22, 2024 5:00am LABWORK May 26, 2024 5 :00am JAIL LAB WORK May 29, 2024 5:00am JAIL LAB WORK June 02, 2024 5:00am JAIL LAB WORK June 05, 2024 5:00am LABWORK June 09, 2024 5 :00am JAIL LAB WORK June 12, 2024 5:00am JAIL LAB WORK June 16 5:00am JAIL LAB WORK June 19 5:00am LABWORK June 23, 2024 5:00am JAIL LAB WORK June 26 5:00am JAIL LAB WORK June 30 5:00am JAIL LAB WORK July 03 5:00am JAIL LAB WORK July 07, 2024 4: 00am LABWORK July 11, 2024 5:00 am LABWORK July 14, 2024 5:0 0am JAIL LAB WORK July 17, 2024 4 :00am JAIL LAB WORK July 24, 2024 4 :00am LABWORK July 25, 2024 5:0 0am Chief Complaint Admit Date JAIL LAB WORK April 14, 2024 5:00am JAIL LAB WORK April 17 5:00am LABWORK April 21, 2024 5:00am JAIL LAB WORK April 24 4:00am LABWORK April 28, 2024 5:00am JAIL LAB WORK May 01 4:00am JAIL LAB WORK May 05 5:00am JAIL LAB WORK May 08, 2024 5:00am JAIL LAB WORK May 09, 2024 4:00am LABWORK May 12, 2024 5: 00am JAIL LAB WORK May 15, 2024 5:00am JAIL LAB WORK May 19, 2024 4:00am JAIL LAB WORK May 20, 2024 5:00am JAIL LAB WORK May 22, 2024 5:00am LABWORK May 26, 2024 5 :00am JAIL LAB WORK May 29, 2024 5:00am JAIL LAB WORK June 02, 2024 5:00am JAIL LAB WORK June 05, 2024 5:00am LABWORK June 09, 2024 5 :00am JAIL LAB WORK June 12, 2024 5:00am JAIL LAB WORK June 16 5:00am JAIL LAB WORK June 19 5:00am LABWORK June 23, 2024 5:00am JAIL LAB WORK June 26 5:00am JAIL LAB WORK June 30 5:00am JAIL LAB WORK July 03 5:00am JAIL LAB WORK July 07, 2024 4: 00am LABWORK July 11, 2024 5:00 am LABWORK July 14, 2024 5:0 0am JAIL LAB WORK July 17, 2024 4 :00am JAIL LAB WORK July 21, 2024 5 :00am JAIL LAB WORK July 24, 2024 4 :00am LABWORK July 25, 2024 5:0 0am JAIL LAB WORK July 31, 2024 4 :00am Chief Complaint Admit Date JAIL LAB WORK April 17 5:00am LABWORK April 21, 2024 5:00am JAIL LAB WORK April 24 4:00am LABWORK April 28, 2024 5:00am JAIL LAB WORK May 01 4:00am JAIL LAB WORK May 05 5:00am JAIL LAB WORK May 08, 2024 5:00am JAIL LAB WORK May 09, 2024 4:00am LABWORK May 12, 2024 5: 00am JAIL LAB WORK May 15, 2024 5:00am JAIL LAB WORK May 19, 2024 4:00am JAIL LAB WORK May 20, 2024 5:00am JAIL LAB WORK May 22, 2024 5:00am LABWORK May 26, 2024 5 :00am JAIL LAB WORK May 29, 2024 5:00am JAIL LAB WORK June 02, 2024 5:00am JAIL LAB WORK June 05, 2024 5:00am LABWORK June 09, 2024 5 :00am JAIL LAB WORK June 12, 2024 5:00am JAIL LAB WORK June 16 5:00am JAIL LAB WORK June 19 5:00am LABWORK June 23, 2024 5:00am JAIL LAB WORK June 26 5:00am JAIL LAB WORK June 30 5:00am JAIL LAB WORK July 03 5:00am JAIL LAB WORK July 07, 2024 4: 00am LABWORK July 11, 2024 5:00 am LABWORK July 14, 2024 5:0 0am JAIL LAB WORK July 17, 2024 4 :00am JAIL LAB WORK July 21, 2024 5 :00am JAIL LAB WORK July 24, 2024 4 :00am LABWORK July 25, 2024 5:0 0am JAIL LAB WORK July 28, 2024 5 :00am JAIL LAB WORK July 31, 2024 4 :00am Chief Complaint Admit Date JAIL LAB WORK April 24 4:00am LABWORK April 28, 2024 5:00am JAIL LAB WORK May 01 4:00am JAIL LAB WORK May 05 5:00am JAIL LAB WORK May 08, 2024 5:00am JAIL LAB WORK May 09, 2024 4:00am LABWORK May 12, 2024 5: 00am JAIL LAB WORK May 15, 2024 5:00am JAIL LAB WORK May 19, 2024 4:00am JAIL LAB WORK May 20, 2024 5:00am JAIL LAB WORK May 22, 2024 5:00am LABWORK May 26, 2024 5 :00am JAIL LAB WORK May 29, 2024 5:00am JAIL LAB WORK June 02, 2024 5:00am JAIL LAB WORK June 05, 2024 5:00am LABWORK June 09, 2024 5 :00am JAIL LAB WORK June 12, 2024 5:00am JAIL LAB WORK June 16 5:00am JAIL LAB WORK June 19 5:00am LABWORK June 23, 2024 5:00am JAIL LAB WORK June 26 5:00am JAIL LAB WORK June 30 5:00am JAIL LAB WORK July 03 5:00am JAIL LAB WORK July 07, 2024 4: 00am LABWORK July 11, 2024 5:00 am LABWORK July 14, 2024 5:0 0am JAIL LAB WORK July 17, 2024 4 :00am JAIL LAB WORK July 21, 2024 5 :00am JAIL LAB WORK July 24, 2024 4 :00am LABWORK July 25, 2024 5:0 0am JAIL LAB WORK July 28, 2024 5 :00am JAIL LAB WORK July 31, 2024 4 :00am LABWORK August 04, 2024 5:0 0am Chief Complaint Admit Date JAIL LAB WORK May 15, 2024 5:00am JAIL LAB WORK May 19, 2024 4:00am JAIL LAB WORK May 20, 2024 5:00am JAIL LAB WORK May 22, 2024 5:00am LABWORK May 26, 2024 5 :00am JAIL LAB WORK May 29, 2024 5:00am JAIL LAB WORK June 02, 2024 5:00am JAIL LAB WORK June 05, 2024 5:00am LABWORK June 09, 2024 5 :00am JAIL LAB WORK June 12, 2024 5:00am JAIL LAB WORK June 16 5:00am JAIL LAB WORK June 19 5:00am LABWORK June 23, 2024 5:00am JAIL LAB WORK June 26 5:00am JAIL LAB WORK June 30 5:00am JAIL LAB WORK July 03 5:00am JAIL LAB WORK July 07, 2024 4: 00am LABWORK July 11, 2024 5:00 am LABWORK July 14, 2024 5:0 0am JAIL LAB WORK July 17, 2024 4 :00am JAIL LAB WORK July 21, 2024 5 :00am [facility] July 24, 2024 4 :00am LABWORK July 25, 2024 5:0 0am [facility] July 28, 2024 5 :00am [facility] July 31, 2024 4 :00am LABWORK August 04, 2024 5:0 0am LABWORK August 07, 2024 5:00 am [facility] August 11, 2024 5: 00am [facility] August 14, 2024 5 :00am [facility] August 18, 2024 5 :00am Chief Complaint Admit Date [facility] May 20, 2024 5:00am [facility] May 22, 2024 5:00am LABWORK May 26, 2024 5 :00am [facility] May 29, 2024 5:00am [facility] June 02, 2024 5:00am [facility] June 05, 2024 5:00am LABWORK June 09, 2024 5 :00am [facility] June 12, 2024 5:00am [facility] June 16 5:00am [facility] June 19 5:00am LABWORK June 23, 2024 5:00am [facility] June 26 5:00am [facility] June 30 5:00am [facility] July 03 5:00am [facility] July 07, 2024 4: 00am LABWORK July 11, 2024 5:00 am LABWORK July 14, 2024 5:0 0am [facility] July 17, 2024 4 :00am [facility] July 21, 2024 5 :00am [facility] July 24, 2024 4 :00am LABWORK July 25, 2024 5:0 0am [facility] July 28, 2024 5 :00am [facility] July 31, 2024 4 :00am LABWORK August 04, 2024 5:0 0am LABWORK August 07, 2024 5:00 am [facility] August 11, 2024 5: 00am [facility] August 14, 2024 5 :00am [facility] August 18, 2024 5 :00am LABWORK August 28, 2024 5:0 0am Chief Complaint Admit Date [facility] May 22, 2024 5:00am LABWORK May 26, 2024 5 :00am [facility] May 29, 2024 5:00am [facility] June 02, 2024 5:00am [facility] June 05, 2024 5:00am LABWORK June 09, 2024 5 :00am [facility] June 12, 2024 5:00am [facility] June 16 5:00am [facility] June 19 5:00am LABWORK June 23, 2024 5:00am [facility] June 26 5:00am [facility] June 30 5:00am [facility] July 03 5:00am [facility] July 07, 2024 4: 00am LABWORK July 11, 2024 5:00 am LABWORK July 14, 2024 5:0 0am [facility] July 17, 2024 4 :00am [facility] July 21, 2024 5 :00am [facility] July 24, 2024 4 :00am LABWORK July 25, 2024 5:0 0am [facility] July 28, 2024 5 :00am [facility] July 31, 2024 4 :00am LABWORK August 04, 2024 5:0 0am LABWORK August 07, 2024 5:00 am [facility] August 11, 2024 5: 00am [facility] August 14, 2024 5 :00am [facility] August 18, 2024 5 :00am [facility] August 21, 2024 5 :00am LABWORK August 28, 2024 5:0 0am LABWORK September 01, 2024 5:0 0am Chief Complaint Admit Date [facility] June 05, 2024 5:00am LABWORK June 09, 2024 5 :00am [facility] June 12, 2024 5:00am [facility] June 16 5:00am [facility] June 19 5:00am LABWORK June 23, 2024 5:00am [facility] June 26 5:00am [facility] June 30 5:00am [facility] July 03 5:00am [facility] July 07, 2024 4: 00am LABWORK July 11, 2024 5:00 am LABWORK July 14, 2024 5:0 0am [facility] July 17, 2024 4 :00am [facility] July 21, 2024 5 :00am [facility] July 24, 2024 4 :00am LABWORK July 25, 2024 5:0 0am [facility] July 28, 2024 5 :00am [facility] July 31, 2024 4 :00am LABWORK August 04, 2024 5:0 0am LABWORK August 07, 2024 5:00 am [facility] August 11, 2024 5: 00am [facility] August 14, 2024 5 :00am [facility] August 18, 2024 5 :00am [facility] August 21, 2024 5 :00am [facility] August 25, 2024 4 :00am LABWORK August 28, 2024 5:0 0am LABWORK September 01, 2024 5:0 0am LABWORK September 04, 2024 5:00am Chief Complaint Admit Date [facility] June 05, 2024 5:00am LABWORK June 09, 2024 5 :00am [facility] June 12, 2024 5:00am [facility] June 16 5:00am [facility] June 19 5:00am LABWORK June 23, 2024 5:00am [facility] June 26 5:00am [facility] June 30 5:00am [facility] July 03 5:00am [facility] July 07, 2024 4: 00am LABWORK July 11, 2024 5:00 am LABWORK July 14, 2024 5:0 0am [facility] July 17, 2024 4 :00am [facility] July 21, 2024 5 :00am [facility] July 24, 2024 4 :00am LABWORK July 25, 2024 5:0 0am [facility] July 28, 2024 5 :00am [facility] July 31, 2024 4 :00am LABWORK August 04, 2024 5:0 0am LABWORK August 07, 2024 5:00 am [facility] August 11, 2024 5: 00am [facility] August 14, 2024 5 :00am [facility] August 18, 2024 5 :00am [facility] August 21, 2024 5 :00am [facility] August 25, 2024 4 :00am LABWORK August 28, 2024 5:0 0am LABWORK September 01, 2024 5:0 0am LABWORK September 04, 2024 5:00am LABWORK September 15, 2024 5:00a m Chief Complaint Admit Date [facility] June 19 5:00am LABWORK June 23, 2024 5:00am [facility] June 26 5:00am [facility] June 30 5:00am [facility] July 03 5:00am [facility] July 07, 2024 4: 00am LABWORK July 11, 2024 5:00 am LABWORK July 14, 2024 5:0 0am [facility] July 17, 2024 4 :00am [facility] July 21, 2024 5 :00am [facility] July 24, 2024 4 :00am LABWORK July 25, 2024 5:0 0am [facility] July 28, 2024 5 :00am [facility] July 31, 2024 4 :00am LABWORK August 04, 2024 5:0 0am LABWORK August 07, 2024 5:00 am [facility] August 11, 2024 5: 00am [facility] August 14, 2024 5 :00am [facility] August 18, 2024 5 :00am [facility] August 21, 2024 5 :00am [facility] August 25, 2024 4 :00am LABWORK August 28, 2024 5:0 0am LABWORK September 01, 2024 5:0 0am LABWORK September 04, 2024 5:00am [facility] September 08, 2024 4:00 am [facility] September 11, 2024 5:00 am LABWORK September 15, 2024 5:00a m [facility] September 25, 2024 5:0 0am [facility] September 30, 2024 4:0 0am Chief Complaint Admit Date [facility] June 12, 2024 5:00am [facility] June 16 5:00am [facility] June 19 5:00am LABWORK June 23, 2024 5:00am [facility] June 26 5:00am [facility] June 30 5:00am [facility] July 03 5:00am [facility] July 07, 2024 4: 00am LABWORK July 11, 2024 5:00 am LABWORK July 14, 2024 5:0 0am [facility] July 17, 2024 4 :00am [facility] July 21, 2024 5 :00am [facility] July 24, 2024 4 :00am LABWORK July 25, 2024 5:0 0am [facility] July 28, 2024 5 :00am [facility] July 31, 2024 4 :00am LABWORK August 04, 2024 5:0 0am LABWORK August 07, 2024 5:00 am [facility] August 11, 2024 5: 00am [facility] August 14, 2024 5 :00am [facility] August 18, 2024 5 :00am [facility] August 21, 2024 5 :00am [facility] August 25, 2024 4 :00am LABWORK August 28, 2024 5:0 0am LABWORK September 01, 2024 5:0 0am LABWORK September 04, 2024 5:00am [facility] September 08, 2024 4:00 am LABWORK September 15, 2024 5:00a m Chief Complaint Admit Date [facility] July 07, 2024 4: 00am LABWORK July 11, 2024 5:00 am LABWORK July 14, 2024 5:0 0am [facility] July 17, 2024 4 :00am [facility] July 21, 2024 5 :00am [facility] July 24, 2024 4 :00am LABWORK July 25, 2024 5:0 0am [facility] July 28, 2024 5 :00am [facility] July 31, 2024 4 :00am LABWORK August 04, 2024 5:0 0am LABWORK August 07, 2024 5:00 am [facility] August 11, 2024 5: 00am [facility] August 14, 2024 5 :00am [facility] August 18, 2024 5 :00am [facility] August 21, 2024 5 :00am [facility] August 25, 2024 4 :00am LABWORK August 28, 2024 5:0 0am LABWORK September 01, 2024 5:0 0am LABWORK September 04, 2024 5:00am [facility] September 08, 2024 4:00 am [facility] September 11, 2024 5:00 am LABWORK September 15, 2024 5:00a m [facility] September 18, 2024 5:0 0am [facility] September 22, 2024 5:0 0am [facility] September 25, 2024 5:0 0am [facility] September 30, 2024 4:0 0am [facility] October 02, 2024 5:0 0am [facility] October 09, 2024 5:0 0am Chief Complaint Admit Date [facility] WORK October 09, 2024 5:0 0am LABWORK October 13, 2024 5:00a m [facility] October 16, 2024 5: 00am [facility] October 20, 2024 4: 00am [facility] October 23, 2024 5: 00am [facility] October 27, 2024 4: 00am [facility] October 30, 2024 6: 35am LABWORK November 03, 2024 5:00 am [facility] November 06, 2024 4:0 0am [facility] November 10, 2024 4:0 0am [facility] November 13, 2024 5: 00am [facility] November 17, 2024 5: 00am [facility] November 20, 2024 5: 00am [facility] November 24, 2024 5: 00am [facility] November 27, 2024 5: 00am LABWORK November 28, 2024 5:00 am LABWORK December 01, 2024 5:00 am [facility] December 02, 2024 4: 00am [facility] December 04, 2024 5: 00am [facility] December 08, 2024 5 :00am LABWORK December 11, 2024 6:0 0am [facility] December 15, 2024 4:00am [facility] December 18, 2024 5:00am [facility] December 22, 2024 4:00am LABWORK December 24, 2024 5: 00am [facility] December 25, 2024 5:00am [facility] December 26, 2024 5:00am LABWORK December 29, 2024 5: 00am [facility] January 01, 2025 5:00am [facility] January 06 5:00am LABWORK January 08, 2025 5:00am [facility] January 12 4:00am [facility] January 15 5:00am LABWORK January 19, 2025 5:00am [facility] January 26 4:00am Chief Complaint Admit Date LABWORK November 03, 2024 5:00 am [facility] November 06, 2024 4:0 0am [facility] November 10, 2024 4:0 0am [facility] WORK November 13, 2024 5: 00am [facility] WORK November 17, 2024 5: 00am [facility] WORK November 20, 2024 5: 00am [facility] WORK November 24, 2024 5: 00am [facility] WORK November 27, 2024 5: 00am LABWORK November 28, 2024 5:00 am LABWORK December 01, 2024 5:00 am [facility] December 02, 2024 4: 00am [facility] WORK December 04, 2024 5: 00am [facility] WORK December 08, 2024 5 :00am LABWORK December 11, 2024 6:0 0am [facility] WORK December 15, 2024 4:00am [facility] WORK December 18, 2024 5:00am [facility] WORK December 22, 2024 4:00am LABWORK December 24, 2024 5: 00am [facility] WORK December 25, 2024 5:00am [facility] WORK December 26, 2024 5:00am LABWORK December 29, 2024 5: 00am [facility] January 01, 2025 5:00am [facility] WORK January 06 5:00am LABWORK January 08, 2025 5:00am [facility] WORK January 12 4:00am [facility] WORK January 15 5:00am LABWORK January 19, 2025 5:00am [facility] WORK January 22 5:00am [facility] January 26 4:00am [facility] January 29 7:30am [facility] February 02 4:00am [facility] February 05, 2025 5:00am [facility] February 16, 2025 4:00am Reason for Referral Specialty Diagnoses / Procedures Referred By Aki kumari Referred To Contact Urology Diagnoses Other fatigue Lanette Munguia DO [address] [place] [address] [facility] [address] [place] [id number] Referral ID Status Reason Start Date Expiration Date V isits Requested Visits Authorized [id number] Open Specialty Services Required 11/01/2021 11/01/2022 1 1 Scheduling Instructions [facility] - [address] , [address] [place] [address] Specialty Diagnoses / Procedures Referred By Aki t Referred To Contact IP Unit Diagnoses Heel ulceration, left, with unspecified severity (HCC) Henry Hidalgo PA [address] [place] [address] [facility] [address] [place] [address] Referral ID Status Reason Start Date Expiration Date V isits Requested Visits Authorized [id number] Open Specialty Services Required 12/22/2021 12/22/2022 1 1 Scheduling Instructions [facility] - [facility] [address] [place] [address] Comments Please use the parking lot located on [employer] or [employer]. There are handicap parking spots located in a small lot beside the wound care entrance off of [employer] Please be advised there is a small incline from those handicap spots to our main door. Bring photo ID and insurance card to photocopy. Wear loose fitting clothing (to easily access wound). Bring list of medications (or can be sent by office). Check in at Registration for your first visit. Please call us directly with any questions [phone]. We look forward to helping you heal. Specialty Diagnoses / Procedures Referred By Aki kumari Referred To Contact Radiology Diagnoses Left flank pain Calculus of ureter Procedures CT abdomen pelvis wo IV contrast Rebecca Buck MD [address] [place] [address] Referral ID Status Reason Start Date Expiration Date V isits Requested Visits Authorized [id number] Pending Review 08/13/2023 08/12/2024 1 1 Referral ID Status Reason Start Date Expiration Date Visits Re quested Visits Authorized [id number] Closed 08/17/2023 09/16/2023 1 1 Additional Source Comments Source Comments (unrecognize d section and content) In the event this informatio n is protected by the Federal Confidentiality of Alcohol and Drug Abuse Patient Records regulations: The Federal rules restrict any use of the information to criminally investigate or prosecute any alcohol or drug abuse patient.[facility] the event this information is protected by the [facility] Confidentiality of Alcohol and Drug Abuse Patient Records regulations: The Federal rules restrict any use of the information to criminally investigate or prosecute any alcohol or drug abuse patient.[facility] (unrecognized sect ion and content) No Status Records FoundNo Status Records FoundNo Status Records FoundNo Status Records FoundNo Status Records FoundNo Status Records FoundNo Status Records FoundNo Status Records FoundNo Status Records FoundNo Status Records Found INFORMATION SOURCE (unrecogn ized section and content) DATE CREATED AUTHOR 05/20/2021 [facility] DATE CREATED AUTHOR AUTHOR'S ORGANIZ ATION 06/07/2021 [facility] DATE CREATED AUTHOR AUTHOR'S ORGANIZ ATION 08/02/2021 [facility] DATE CREATED AUTHOR AUTHOR'S ORGANIZ ATION 12/09/2021 [facility] DATE CREATED AUTHOR AUTHOR'S ORGANIZ ATION 12/29/2021 [facility] DATE CREATED AUTHOR AUTHOR'S ORGANIZ ATION 02/04/2022 [facility] DATE CREATED AUTHOR AUTHOR'S ORGANIZ ATION 03/03/2022 [facility] DATE CREATED AUTHOR AUTHOR'S ORGANIZ ATION 09/15/2023 [facility] DATE CREATED AUTHOR AUTHOR'S ORGANIZ ATION 03/12/2025 [facility] Reason for Visit (unrecogniz ed section and content) Reason Comments Missed Appointment Reason Comments Leg Swelling Blood clots Reason Comments Altered Mental Status Pt presents to ED via [facility] for complaint listed. Pt is from [facility]. Pt's LKW was 1000 hours today. Per EMS, pt had a - [place]. Pt denies CP, SOB, and N/V. Pt seems slow to respond, slightly confused at this time. Reason Comments [facility]omyelitis [facility], facility did xrays on left lower leg and and have concerns for possible osteomyelitis A&Ox2 to self and place, stated year 2022 preside Miss vini Reason Comments Fall Patient had unwitnes sed [...] Buck MD [address] [place] [address] Referral ID Status Reason Start Date Expiration Date Visits Re quested Visits Authorized [id number] Closed 08/17/2023 09/16/2023 1 1 Reason Comments [...] Inactive Member Role Status Dates Dr. Monika tSaley MD Primary Care Provider Active Start: July [...] 28, 2024 End: April 28, 2024 Carlos NVOAK Attending Provider Active Sta rt: April 28, [...] Status Dates Carlos NOVAK Attending Provider Active Hide Sorter Relationship Specialty Start Date End Date Mateus Burris [address] [facility] [place] [address] PCP - General Family Practice 11/12/19 Hide Sorter Relationship Specialty [place] [address] [place] [address] PCP - General Family Medicine 09/09/20 Hide Sorter Relationship Specialty [place] [address] [place] [address] PCP - General Family Medicine 09/09/20 Hide Sorter Relationship Specialty [place] [address] [place] [address] PCP - General Family Medicine 09/09/20 Hide Sorter Relationship Specialty Start Date End Date Carlos Cavazos MD [address] [place] [address] PCP - General Internal Medicine 02/20/22 Team [...] Monika Staley MD Primary Care Provider Active Hide Sorter Relationship Specialty Start Date End Date Carlos Cavazos [address] [place] [phone] PCP - General 12/21/21 Rebecca Buck MD [address] [place] [address] Surgeon Urology 06/25/23 Team Status: Inactive Member Role Status Dates Carlos NOVAK Attending Provider, Referring Provi lupillo Active Dr. Monika Staley MD Primary Care Provider Active Team Status: Inactive Member Role Status Dates Dr. Monika Staley MD Primary Care Provider Active Carlos NOVAK Attending Provider Active Team Status: Active Member Role Status Dates Dr. Monika Stalye MD Primary Care Provider Active Carlos NOVAK Attending Provider Active Team Status: Inactive Member Role Status Dates Dr. Monika Staley MD Primary Care Provider Active Carlos NOVAK Attending Provider, Referring Provi lupillo Active Hide Sorter Relationship Specialty Start Date End Date Carlos Cavazos [address] [place] [phone] PCP - General 12/21/21 Rebecca Buck MD [address] [address] Surgeon Urology 06/25/23 Hide Sorter Relationship Specialty Start Date End Date Carlos Cavazos [address] [place] [phone] PCP - General 12/21/21 Rebecca Buck MD [address] [address] Surgeon Urology 06/25/23 Hide Sorter Relationship Specialty Start Date End Date Carlos Cavazos [address] [place] [phone] PCP - General 12/21/21 Rebecca Buck MD [address] [address] Surgeon Urology 06/25/23 Hide Sorter Relationship Specialty Start Date End Date Carlos Cavazos [address] [place] [phone] PCP - General 12/21/21 Rebecca Buck MD [address] [address] Surgeon Urology 06/25/23 Hide Sorter Relationship Specialty Start Date End Date Carlos Cavazos [address] [place] [phone] PCP - General 12/21/21 Rebecca Buck MD [address] [address] Surgeon Urology 06/25/23 Hide Sorter Relationship Specialty Start Date End Date Carlos Cavazos [address] [place] [phone] PCP - General 12/21/21 Rebecca Buck MD [address] [address] Surgeon Urology 06/25/23 Team Status: Inactive Member Role Status Dates Dr. Monika Staley MD Primary Care Provider Active Start: March 13, 2024 End: March 13, 2024 [facility] Attending Provider Active Start: March 13, [...] March 17, 2024 End: March 17, 2024 [facility] Attending Provider Active Start: March 17, 2024 End: March 17, 2024 Team Status: Inactive Member Role Status Dates Dr. Monika Staley MD Primary Care Provider Active Start: March 18, 2024 End: March 18, 2024 [facility] Attending Provider Active Start: March 18, [...] March 20, 2024 End: March 20, 2024 [facility] Attending Provider Active Start: March 20, [...] March 27, 2024 End: March 27, 2024 [facility] Attending Provider Active Start: March 27, [...] Care Provider Active Start: July 07, 2024 [facility] Attending Provider Active Start: July 07, [...] physician Activ e Start: January 29, 2025 Kraon NOVAK MD Attending physician Active Start: January [...] Hoff RN)1437 (Given - Provider: Rosanne Hoff, AYUSH)2035 (Given - Provider: Katlin Julio RN) 0816 [...] Lisa Ashby RN)214 (Stopped - Provider: Lisa Ashby, AYUSH) 1026 (New Bag - Provider: Fabi Surbamanian, AYUSH)1150 (Stopped - Provider: Fabi Subramanian RN)2100 [...] (2 times per day), First dose on 6/17/22 at 0900, Until Discontinued, For Line Patency: [...] RN) 0816 (Given - Provider: Rosanne Hoff, RN)1927 (Given - Provider: Lisa Ashby, AYUSH) [...] BE BASED ON THE PRIMARY CLINICAL RECORDS. [facility] [employer] [facility]. provides no warranty or guarantee of the accuracy or completeness of information in this document.
[2025-03-13 07:37] LABS: Prothrombin Time (Protime)PT. 25.5 SECONDS (11.7-14.9)
== END ==
LOC: OLS.SANC 05:00
PROVIDERS: PCP General Practice; Visit Provider Internal Medicine
DX: D64.9 Anemia, unspecified (principal); I50.9 Heart failure, unspecified; Z79.01 Long term (current) use of 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
CPT/HCPCS: 36415; 85610

== ENCOUNTER → 2025-03-16 05:00 | Outpatient (REF) | payer MEDICARE, MEDICAID, SELFPAY ==
[2025-03-16 08:44] LABS: Prothrombin Time (Protime)PT. 25.1 SECONDS (11.7-14.9)
== END ==
LOC: OLS.SANC 05:00
PROVIDERS: PCP General Practice; Visit Provider Internal Medicine
DX: Z79.01 Long term (current) use of 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 (principal)
CPT/HCPCS: 36415; 85610

== ENCOUNTER → 2025-03-19 | Outpatient (REF) | payer MEDICARE, MEDICAID, SELFPAY ==
--- OUTSIDE RECORDS SUMMARY | 2025-03-19 03:53 | XMS RPT_ITS | CCD ---
Author Organization [facility] Care Team Providers Care Telegraph Office Telephone Clerk Name Role Phone Mateus Burris Primary Care Provider Monika Staley Unavailable Unavailable Leonor, Mdady L Unavailable Unavailable Update Needed Unavailable Unavailable [...] Unavailable Carlos Cavazos MD Primary Care Provider [phone] PROVIDER, UNKNOWN Primary Care Unavailable PROVIDER, UNKNOWN Referring Unavailable LANETTE MUNGUIA Attending Unavailable SHARON HSIEH Attending Jeanine vailable PROVIDER, UNKNOWN Primary Care Unavailable PROVIDER, UNKNOWN Referring Unavailable PROVIDER, UNKNOWN Referring Unavailable MATEUS BURRIS Primary Care Unavailabl DANTE Barrrea Attending Unavailable Kenny, Carlos Primary Care Provider Quinn VALLADARES, Rebecca L Unavailable Quinn VALLADARES, Rebecca L Unavailable REBECCA BUCK Attending Unavailable REBECCA BUCK Referring Unavailable CARLOS CAVZAOS Primary Care Unavailable REBECCA BUCK Attending Unavailable KENNY, CARLOS Primary Care Unavailable REBECCA BUCK Attending Unavailable KENNY, CARLOS Primary Care Unavailable Luís VALLADARES, Dr. Monika Horner Primary Care Provider [facility] Attending Provider [phone] Carlos Nelson Attending Provider Jonh Pascual MD, [...] Provider Dr. Kvng Crisostomo MD Attending Provider Unava evan Crisostomo MD, Dr. Calderon Referring Provider Unava [...] Jonh Cardoza MD, Dr. Monika Horner Primary [facility] Physician Karon Corrales MD Attending Physician Unav ailCarlos Anglin Attending Physician Camelia Corrales MD, Karon Referring Provider Unava evan Staley MD, Dr. Monika Horner Primary [facility] Physician Carlos Nelson Attending Physician Unavailvanessa Corrales MD, Karon Attending Physician Unav mike Corrales MD, Karon Referring Provider Unava ilable Karon Shah Attending Unavail able Luís, Shiela Primary Care Unavailable Davidkkminglla Karon NOVAK Referring Unavail able Dariana Karon NOVAK Attending Unavail able Luís, Shiela Primary Care Unavailable KatsaCarlos Villavicencio Attending Unavailable Luís, Shiela Primary Care Unavailable Davidkkmiaha Karon NOVAK Attending Unavail able Luís, Shiela Primary Care Unavailable Mukkamalla OLS, Mahaveer Referring Unavail able Mukkamalla OLS, Carlaaveer Attending Unavail able Luís, Shiela Primary Care Unavailable Luís, Shiela Primary Care Unavailable Crisostomo OLS, Kvng Attending Unavailable Katsaros OLS, Carlos Attending Unavailable Luís, [...] Melindaer Attending Unavail able Mukkamalla OLS, Carlaaveer Attending Unavail able Mukkamalla OLS, Carlaaveer Referring Unavail able Luís, Shiela Primary Care Unavailable Mukkamalla OLS, Carlaaveer Attending Unavail able Luís, Shiela Primary Care Unavailable Crisostomo OLSKvng Attending Unavailable Luís, Shiela Primary Care Unavailable Luís, Shiela Primary Care Unavailable Katsaros OLS, Peter Attending Unavailable Katsaros OLS, Carlos Attending Unavailable Luís, Shiela Primary Care Unavailable Katsaros OLS, Peter Attending Unavailable Luís, Shiela Primary Care Unavailable Katsaros OLS, Carlos Attending Unavailable Luís, Shiela Primary Care Unavailable Crisostomo OLS, Babbaljeet Attending Unavailable Luís, Shiela Primary Care Unavailable Katsaros OLS, Carlos Attending Unavailable Luís, Shiela Primary Care Unavailable Luís, Shiela Primary Care Unavailable Crisostomo OLS, Elizabethet Attending Unavailable Crisostomo OLS, Vicentebaljeet Attending Unavailable Luís, [...] Crisostomo OLS, Elizabethet Attending Unavailable Crisostomo OLS, Vicentebaljeet Referring Unavailable Luís, Shiela Primary Care Unavailable [...] Unavailable Mukkamalla OLS, Mahaveer Attending Unavail able [facility] Attending Unavai lable Luís, Shiela Primary Care Unavailable Crisostomo OLS, Babbaljeet Attending Unavailable Luís, Shiela Primary Care Unavailable [facility] Attending Unavai lable Luís, Shiela Primary Care [...] Mukkamalla OLS, Carlaaveer Attending Unavail able Crisostomo OLS, Kvng Attending Unavailable Luís, Shiela [...] Luís, Shiela Primary Care Unavailable Mukkamalla OLS, Melinader Referring Unavail able Mukkamalla OLS, Carlaaveer Attending [...] Unavail able Luís, Shiela Primary Care Unavailable MukkKaron Hoover Attending Unavail able Luís, [facility] Primary Care Unavailable NubiaKaron Stacy Attending Unavail able Luís, Shiela Primary Care Unavailable NubiaKaron Stacy Attending Unavail able Luís, [facility] Primary Care Unavailable MaribelCarlos Flood Attending Unavailable [place] Unavailable Allergies Allergy Classification Reported Allergen(s) Allergy Type Date of Onset Reaction(s) Facility (13 sources) [facility] Drug All[facility] 5 [facility] Work Phone: (15 sources) Alcohol Propensity to adverse reactions to drug 3 Rash, Hives, Other: See Comments, Other [facility] Work Phone: (1 source) Latex Drug Allergy 0 Rash [facility] (8 sources) Cortisone Drug Allergy 2 [facility] (7 sources) Latex Allergy to substance 0 Rash [facility] Medications Current Medications Medication Drug Class(es) Dates Sig (Normalized) Sig (Original) Acetaminophen (10 sources) Start: 10-21-2021 acetaminophen (TYLENOL) tablet 650 mg Start: 09-14-2021 acetaminophen (TYLENOL) 325 MG tablet 650 mg every 6 hours as needed 0 09/14/2021 Active take 2 tablets by [facility] every eight hours acetaminophen (TYLENOL) 325 [...] take [address] [facility] once daily tamsulosin (FLOMAX) 0.4 MG [...] Comment on above: Take 1 tablet by [facility] daily. Antacid TABS (6 sources) Antacid [...] Comment on above: Take 1 capsule by [facility] three times daily. Complete Multi-Vitamin CHEW [...] Units subcutaneously with meals and at bedtime. Setswana Panax Ginseng 100 MG CAPS (8 sources) Setswana Panax Ginseng 100 MG CAPS Quantity: 0 Refills: 0 Ordered: 06-Nov-2019 DO Active Setswana Panax Ginseng 100 MG Oral Capsule (4 sources) Setswana Panax Ginseng 100 MG Oral Capsule Refills: 0 Active Setswana Panax Gin mayuri 100 MG Oral Capsule Refills: 0 DO Active Setswana Panax Ginseng 100 MG Oral Capsule (2 sources) Setswana Panax Gin mayuri 100 MG Oral Capsule [...] once daily. Pentoxifylline (1 source) Blood Viscosity Rnp PENTOXIFYLLINE ORAL Take by mouth. 0 Active Comment on above: Take by mouth. petrolatum 0.41 mg/mg topical ointment (1 source) Start : 08-20 white petrolatum (AQUAPHOR) 41 % topical ointment Apply to affected area once daily. 0 08/20/2021 Active Comment on above: Apply to affected ar ea once daily. 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, [address] PT Coag (PPP) [Time] 25.1 s High 11.7-14.9 [facility] Comment on above: Order Comment: 411-2 Performed By: #### L 300.3900 ####[facility] [address] [place], [address] Prothrombin Time w/INRon INR Coag (PPP) [Relative time] 2.3 {INR} Normal [facility] Comment on above: Order Comment: 411-2 Performed By: #### L 300.3900 ####[facility] [address] [place], [address] PT Coag (PPP) [Time] 25.5 s High 11.7-14.9 [facility] Comment on above: Order Comment: 411-2 Performed By: #### L 300.3900 ####[facility] [address] [place], [address] Prothrombin Time w/INRon INR Coag (PPP) [Relative time] 2.0 {INR} Normal [facility] Comment on above: Order Comment: 411.2 Performed By: #### L 300.3900 ####[facility] [address] [place], [address] PT Coag (PPP) [Time] 22.8 s High 11.7-14.9 [facility] Comment on above: Order Comment: 411.2 Performed By: #### L 300.3900 ####[facility] [address] [place], [address] Prothrombin Time w/INRon INR Coag (PPP) [Relative time] 1.7 {INR} Normal [facility] Comment on above: Order Comment: 411-2 Performed By: #### L 300.3900 ####[facility] [address] [place], [address] PT Coag (PPP) [Time] 20.5 s High 11.7-14.9 [facility] Comment on above: Order Comment: 411-2 Performed By: #### L 300.3900 ####[facility] [address] [place], [address] Prothrombin Time w/INRon INR Coag (PPP) [Relative time] 1.5 {INR} Normal [facility] Comment on above: Order Comment: 411.2 Performed By: #### L 300.3900 ####[facility] [address] [place], [address] PT Coag (PPP) [Time] 18.4 s High 11.7-14.9 [facility] Comment on above: Order Comment: 411.2 Performed By: #### L 300.3900 ####[facility] [address] [place], [address] Prothrombin Time w/INRon INR Coag (PPP) [Relative time] 1.8 {INR} Normal [facility] Comment on above: Order Comment: 411.2 Performed By: #### L 300.3900 ####[facility] [address] [place], [address] PT Coag (PPP) [Time] 21.2 s High 11.7-14.9 [facility] Comment on above: Order Comment: 411.2 Performed By: #### L 300.3900 ####[facility] [address] [place], [place], [phone] International normalized rat io (INR) calculationOrdered By: Carlos Cavazos on 03-02-2025 INR Coag (Bld) [Relative time] 2.2 {INR} [facility] Prothrombin Time w/INRon INR Coag (PPP) [Relative time] 2.2 {INR} Normal [facility] Comment on above: Order Comment: 411-2 Performed By: #### L 300.3900 ####[facility] [address] [place], [place], [phone] Prothrombin timeOrdered By: Carlos Cavazos on 03-02-2025 PT Coag (PPP) [Time] 25.3 s High 11.7-14.9 [facility] Comment on above: Order Comment: 411-2 Performed By: #### L 300.3900 ####[facility] [address] [place], [place], [phone] International normalized rat io (INR) calculationOrdered By: Karon Corrales on 02-26-2025 INR Coag (Bld) [Relative time] 2.2 {INR} [facility] Prothrombin Time w/INRon INR Coag (PPP) [Relative time] 2.2 {INR} Normal [facility] Comment on above: Order Comment: 411.2 Performed By: #### L 300.3900 ####[facility] [address] [place], [address] PT Coag (PPP) [Time] 24.5 s High 11.7-14.9 [facility] Comment on above: Order Comment: 411.2 Performed By: #### L 300.3900 ####[facility] [address] [place], [place], [phone] Prothrombin timeOrdered By: Karon Corrales on 02-26-2025 PT Coag (PPP) [Time] 24.5 s High 11.7-14.9 [facility] International normalized rat io (INR) calculationOrdered By: Karon Corrales on 02-23-2025 INR Coag (Bld) [Relative time] 2.0 {INR} [facility] Prothrombin Time w/INRon INR Coag (PPP) [Relative time] 2.0 {INR} Normal [facility] Comment on above: Order Comment: 411.2 Performed By: #### L 300.3900 ####[facility] [address] [place], [place], [phone] PT Coag (PPP) [Time] 23.5 s High 11.7-14.9 [facility] Comment on above: Order Comment: 411.2 Performed By: #### L 300.3900 ####[facility] [address] [place], [place], [phone] Prothrombin timeOrdered By: Karon Corrales on 02-23-2025 PT Coag (PPP) [Time] 23.5 s High 11.7-14.9 [facility] International normalized rat io (INR) calculationOrdered By: Karon Corrales on 02-19-2025 INR Coag (Bld) [Relative time] 1.9 {INR} [facility] Prothrombin Time w/INRon INR Coag (PPP) [Relative time] 1.9 {INR} Normal [facility] Comment on above: Order Comment: 411.2 Performed By: #### L 300.3900 ####[facility] [address] [place], [address](140) PT Coag (PPP) [Time] 21.8 s High 11.7-14.9 [facility] Comment on above: Order Comment: 411.2 Performed By: #### L 300.3900 ####[facility] [address] [place], [place], [phone] Prothrombin timeOrdered By: Karon Corrales on 02-19-2025 PT Coag (PPP) [Time] 21.8 s High 11.7-14.9 [facility] International normalized rat io (INR) calculationOrdered By: Karon Corrales on 02-16-2025 INR Coag (Bld) [Relative time] 1.5 {INR} [facility] Prothrombin Time w/INRon INR Coag (PPP) [Relative time] 1.5 {INR} Normal [facility] Comment on above: Order Comment: 411.2 Performed By: #### L 300.3900 ####[facility] [address] [place], [place], [phone] PT Coag (PPP) [Time] 18.6 s High 11.7-14.9 [facility] Comment on above: Order Comment: 411.2 Performed By: #### L 300.3900 ####[facility] [address] [place], [place], [phone] Prothrombin timeOrdered By: Karon Corrales on 02-16-2025 PT Coag (PPP) [Time] 18.6 s High 11.7-14.9 [facility] International normalized rat io (INR) calculationOrdered By: Karon Corrales on 02-12-2025 INR Coag (Bld) [Relative time] 2.5 {INR} [facility] Prothrombin Time w/INRon INR Coag (PPP) [Relative time] 2.5 {INR} Normal [facility] Comment on above: Order Comment: 411.2 Performed By: #### L 300.3900 ####[facility] [address] [place], [address] PT Coag (PPP) [Time] 27.5 s High 11.7-14.9 [facility] Comment on above: Order Comment: 411.2 Performed By: #### L 300.3900 ####[facility] [address] [place], [address] Prothrombin timeOrdered By: Karon Corrales on 02-12-2025 PT Coag (PPP) [Time] 27.5 s High 11.7-14.9 [facility] International normalized rat io (INR) calculationOrdered By: Carlos Cavazos on 02-09-2025 INR Coag (Bld) [Relative time] 2.5 {INR} [facility] Prothrombin Time w/INRon INR Coag (PPP) [Relative time] 2.5 {INR} Normal [facility] Comment on above: Order Comment: 411-2 Performed By: #### L 300.3900 ####[facility] [address] [place], [address] INR Normal [facility] Comment on above: Order Comment: 411.2 Result Comment: MISS ING TUBE Performed By: #### L 300.3900 ####[facility] [address] [place], [address] PROTIME Normal 11.7-14.9 [facility] Comment on above: Order Comment: 411.2 Result Comment: MISS ING TUBE Performed By: #### L 300.3900 ####[facility] [address] [place], [address] Prothrombin timeOrdered By: Carlos Cavazos on 02-09-2025 PT Coag (PPP) [Time] 27.2 s High 11.7-14.9 [facility] Comment on above: Order Comment: 411-2 Performed By: #### L 300.3900 ####[facility] [address] [place], [address] International normalized rat io (INR) calculationOrdered By: Karon Corrales on 02-05-2025 INR Coag (Bld) [Relative time] 2.5 {INR} [facility] Prothrombin Time w/INRon INR Coag (PPP) [Relative time] 2.5 {INR} Normal [facility] Comment on above: Order Comment: 411.2 Performed By: #### L 300.3900 ####[facility] [address] [place], [address] PT Coag (PPP) [Time] 27.6 s High 11.7-14.9 [facility] Comment on above: Order Comment: 411.2 Performed By: #### L 300.3900 ####[facility] [address] [place], [place], [phone] Prothrombin timeOrdered By: Karon Corrales on 02-05-2025 PT Coag (PPP) [Time] 27.6 s High 11.7-14.9 [facility] International normalized rat io (INR) calculationOrdered By: Karon Corrales on 02-02-2025 INR Coag (Bld) [Relative time] 2.4 {INR} [facility] Prothrombin Time w/INRon INR Coag (PPP) [Relative time] 2.4 {INR} Normal [facility] Comment on above: Order Comment: 411.2 Performed By: #### L 300.3900 ####[facility] [address] [place], [address] PT Coag (PPP) [Time] 26.8 s High 11.7-14.9 [facility] Comment on above: Order Comment: 411.2 Performed By: #### L 300.3900 ####[facility] [address] [place], [place], [phone] Prothrombin timeOrdered By: Karon Corrales on 02-02-2025 PT Coag (PPP) [Time] 26.8 s High 11.7-14.9 [facility] International normalized rat io (INR) calculationOrdered By: Karon Corrales on 01-29-2025 INR Coag (Bld) [Relative time] 2.7 {INR} [facility] Prothrombin Time w/INRon INR Coag (PPP) [Relative time] 2.7 {INR} Normal [facility] Comment on above: Performed By: #### L 300.3900 ####[facility] [address] [place], [place], [phone]) PT Coag (PPP) [Time] 29.1 s High 11.7-14.9 [facility] Comment on above: Performed By: #### L 300.3900 ####[facility] [address] [place], [place], [phone]) Prothrombin timeOrdered By: Karon Corrales on 01-29-2025 PT Coag (PPP) [Time] 29.1 s High 11.7-14.9 [facility] International normalized rat io (INR) calculationOrdered By: Karon Corrales on 01-26-2025 INR Coag (Bld) [Relative time] 2.0 {INR} [facility] Prothrombin Time w/INRon INR Coag (PPP) [Relative time] 2.0 {INR} Normal [facility] Comment on above: Order Comment: 411.2 Performed By: #### L 300.3900 ####[facility] [address] [place], [place], [phone]) PT Coag (PPP) [Time] 23.1 s High 11.7-14.9 [facility] Comment on above: Order Comment: 411.2 Performed By: #### L 300.3900 ####[facility] [address] [place], [place], [phone]) Prothrombin timeOrdered By: Karon Corrales on 01-26-2025 PT Coag (PPP) [Time] 23.1 s High 11.7-14.9 [facility] International normalized rat io (INR) calculationOrdered By: Karon Corrales on 01-22-2025 INR Coag (Bld) [Relative time] 2.4 {INR} [facility] Prothrombin Time w/INRon INR Coag (PPP) [Relative time] 2.4 {INR} Normal [facility] Comment on above: Order Comment: 411.2 Performed By: #### L 300.3900 ####[facility] [address] [place], [address] PT Coag (PPP) [Time] 26.6 s High 11.7-14.9 [facility] Comment on above: Order Comment: 411.2 Performed By: #### L 300.3900 ####[facility] [address] [place], [address] Prothrombin timeOrdered By: Karon Corrales on 01-22-2025 PT Coag (PPP) [Time] 26.6 s High 11.7-14.9 [facility] International normalized rat io (INR) calculationOrdered By: Carlos Cavazos on 01-19-2025 INR Coag (Bld) [Relative time] 2.7 {INR} [facility] Prothrombin Time w/INRon INR Coag (PPP) [Relative time] 2.7 {INR} Normal [facility] Comment on above: Order Comment: 411-2 Performed By: #### L 300.3900 ####[facility] [address] [place], [address] PT Coag (PPP) [Time] 29.7 s High 11.7-14.9 [facility] Comment on above: Order Comment: 411-2 Performed By: #### L 300.3900 ####[facility] [address] [place], [address] Prothrombin timeOrdered By: Carlos Cavazos on 01-19-2025 PT Coag (PPP) [Time] 29.7 s High 11.7-14.9 [facility] International normalized rat io (INR) calculationOrdered By: Karon Corrales on 01-15-2025 INR Coag (Bld) [Relative time] 2.4 {INR} [facility] Prothrombin Time w/INRon INR Coag (PPP) [Relative time] 2.4 {INR} Normal [facility] Comment on above: Order Comment: 411.1 Performed By: #### L 300.3900 ####[facility] [address] [place], [place], [phone] PT Coag (PPP) [Time] 26.6 s High 11.7-14.9 [facility] Comment on above: Order Comment: 411.1 Performed By: #### L 300.3900 ####[facility] [address] [place], [place], [address] Prothrombin timeOrdered By: Karon Corrales on 01-15-2025 PT Coag (PPP) [Time] 26.6 s High 11.7-14.9 [facility] KEPPRA (LEVETIRACETAM)on KEPPRA 30.1 ug/mL Normal 10.0-40.0 [facility] Comment on above: Order Comment: 411.1 Result Comment: Perf ormed at: [facility] [address] [id number] Director: Alpesh Vázquez MD, Phone: [phone] Performed By: #### L 7500.0000, P237.1885 ####[facility] [address] [place], [place], [phone] International normalized rat io (INR) calculationOrdered By: Karon Corrales on 01-12-2025 INR Coag (Bld) [Relative time] 2.3 {INR} [facility] LevetiracetamOrdered By: Carla Corrales on 01-12-2025 levETIRAcetam [Mass/Vol] 30.1 ug/mL 10.0-40.0 [facility] Comment on above: Performed at: - [facility] [address] [id number] Director: Alpesh Vázquez MD, Phone: [phone] Prothrombin Time w/INRon INR Coag (PPP) [Relative time] 2.3 {INR} Normal [facility] Comment on above: Order Comment: 411.1 Performed By: #### L 3310.0000, L300.3900 ####[facility] [address] [place], [address] PT Coag (PPP) [Time] 26.1 s High 11.7-14.9 [facility] Comment on above: Order Comment: 411.1 Performed By: #### L 3310.0000, L300.3900 ####[facility] [address] [place], [address] Prothrombin timeOrdered By: Karon Corrales on 01-12-2025 PT Coag (PPP) [Time] 26.1 s High 11.7-14.9 [facility] KEPPRA (LEVETIRACETAM)on KEPPRA 27.6 ug/mL Normal 10.0-40.0 [facility] Comment on above: Order Comment: 411.1 Result Comment: Perf ormed at: - [facility] [address] [id number] Director: Alpesh Vázquez MD, Phone: [phone] Performed By: #### L 3310.0000, L300.3900 ####[facility] [address] [place], [address] International normalized rat io (INR) calculationOrdered By: Karon Corrales on 01-08-2025 INR Coag (Bld) [Relative time] 2.2 {INR} [facility] Prothrombin Time w/INRon INR Coag (PPP) [Relative time] 2.2 {INR} Normal [facility] Comment on above: Order Comment: 411.1 Performed By: #### L 300.3900 ####[facility] [address] [place], [address] PT Coag (PPP) [Time] 24.5 s High 11.7-14.9 [facility] Comment on above: Order Comment: 411.1 Performed By: #### L 300.3900 ####[facility] [address] [place], [address] Prothrombin timeOrdered By: Karon Corrales on 01-08-2025 PT Coag (PPP) [Time] 24.5 s High 11.7-14.9 [facility] International normalized rat io (INR) calculationOrdered By: Karon Corrales on 01-06-2025 INR Coag (Bld) [Relative time] 3.2 {INR} [facility] LevetiracetamOrdered By: Carla Corrales on 01-06-2025 levETIRAcetam [Mass/Vol] 27.6 ug/mL 10.0-40.0 [facility] Comment on above: Performed at: [address] [id number] Director: Alpesh Vázquez MD, Phone: [phone] Prothrombin Time w/INRon INR Coag (PPP) [Relative time] 3.2 {INR} Normal [facility] Comment on above: Order Comment: 411.1 Performed By: #### L 3310.0000, L300.3900 ####[facility] [address] [place], [address] PT Coag (PPP) [Time] 33.1 s High 11.7-14.9 [facility] Comment on above: Order Comment: 411.1 Performed By: #### L 3310.0000, L300.3900 ####[facility] [address] [place], [place], [phone] Prothrombin timeOrdered By: Karon Corrales on 01-06-2025 PT Coag (PPP) [Time] 33.1 s High 11.7-14.9 [facility] International normalized rat io (INR) calculationOrdered By: Karon Corrales on 01-01-2025 INR Coag (Bld) [Relative time] 2.7 {INR} [facility] Prothrombin Time w/INRon INR Coag (PPP) [Relative time] 2.7 {INR} Normal [facility] Comment on above: Order Comment: 411.1 Performed By: #### L [id number] ####[facility] [address] [place], [place], [phone] Prothrombin timeOrdered By: Karon Corrales on 01-01-2025 PT Coag (PPP) [Time] 29.1 s High 11.7-14.9 [facility] Comment on above: Order Comment: 411.1 Performed By: #### L 3003900 ####[facility] [address] [place], [place], [phone] KEPPRA (LEVETIRACETAM)on KEPPRA 31.8 ug/mL Normal 10.0-40.0 [facility] Comment on above: Order Comment: 411-1 Result Comment: [facility]f ormed at: [facility] [place], [place] [id number] Director: Alpesh Vázquez MD, Phone: [phone] Performed By: #### L 3310.0000, L387.0735 ####[facility] [address] [place], [place], [phone] International normalized rat io (INR) calculationOrdered By: Carlos Cavazos on 12-29-2024 INR Coag (Bld) [Relative time] 3.3 {INR} [facility] KEPPRA (LEVETIRACETAM)on KEPPRA 33.3 ug/mL Normal 10.0-40.0 [facility] Comment on above: Order Comment: 411.1 Result Comment: Perf ormed at: [facility] [address] [id number] Director: Alpesh Vázquez MD, Phone: [phone] Performed By: #### L 3310.0000 ####[facility] [address] [facility] [address] LevetiracetamOrdered By: Ted Cavazos on 12-29-2024 levETIRAcetam [Mass/Vol] 31.8 ug/mL 10.0-40.0 [facility] Comment on above: Performed at: [facility] [address] [id number] Director: Alpesh Vázquez MD, Phone: [phone] Prothrombin Time w/INRon INR Coag (PPP) [Relative time] 3.3 {INR} Normal [facility] Comment on above: Order Comment: 411-1 Performed By: #### L 3310.0000, L300.3900 ####[facility] [address] [place], [address] Prothrombin timeOrdered By: Carlos Cavazos on 12-29-2024 PT Coag (PPP) [Time] 34.0 s High 11.7-14.9 [facility] Comment on above: Order Comment: 411-1 Performed By: #### L 3310.0000, L300.3900 ####[facility] [address] [place], [place], [phone] LevetiracetamOrdered By: Carla Corrales on 12-26-2024 levETIRAcetam [Mass/Vol] 33.3 ug/mL 10.0-40.0 [facility] Comment on above: Performed at: [facility] [address], [place] [id number] Director: Alpesh Vázquez MD, Phone: [phone] International normalized rat io (INR) calculationOrdered By: Karon Corrales on 12-25-2024 INR Coag (Bld) [Relative time] 2.8 {INR} [facility] Prothrombin Time w/INRon INR Coag (PPP) [Relative time] 2.8 {INR} Normal [facility] Comment on above: Order Comment: 411.1 Performed By: #### L 300.3900 ####[facility] [address] [place], [address] Prothrombin timeOrdered By: Karon Corrales on 12-25-2024 PT Coag (PPP) [Time] 30.0 s High 11.7-14.9 [facility] Comment on above: Order Comment: 411.1 Performed By: #### L 300.3900 ####[facility] [address] [place], [address] Anion gap in Serum or Plasma Ordered By: Carlos Cavazos on 12-24-2024 Anion gap [Moles/Vol] 13 mmol/L 09-18 [facility] BUN/creatinine ratioOrdered By: Carlos Cavazos on 12-24-2024 Urea nitrogen/Creatinine [Mass ratio] 19.2 mg/mg 02-23 [facility] Basic Metabolic Profile (BMP )on 12-24-2024 BUN/CRE 19.2 RATIO Normal 02-23 [facility] Comment on above: Order Comment: 411-1 Performed By: #### L 500.2500, L100.0500 ####[facility] [address] [place], [address] Calcium [Mass/Vol] 8.8 mg/dL Normal 7.6-11.0 [facility] Comment on above: Order Comment: 411-1 Performed By: #### L 500.2500, L100.0500 ####[facility] [address] [place], [address] Chloride [Moles/Vol] 103 mmol/L Normal 98-108 [facility] Comment on above: Order Comment: 411-1 Performed By: #### L 500.2500, L100.0500 ####[facility] [address] [place], [address] CO2 [Moles/Vol] 23.7 mmol/L Normal 21.0-32.0 [facility] Comment on above: Order Comment: 411-1 Performed By: #### L 500.2500, L100.0500 ####[facility] [address] [place], [address] Creatinine [Mass/Vol] 0.82 mg/dL Normal 0.70-1.20 [facility] Comment on above: Order Comment: 411-1 Performed By: #### L 500.2500, L100.0500 ####[facility] [address] [place], [address] GAP 13 Normal 5-15 [facility] Comment on above: Order Comment: 411-1 Performed By: #### L 500.2500, L100.0500 ####[facility] [address] [place], [address] GFR/1.73 sq M.predicted among non-blacks MDRD (S/P/Bld) [Vol rate/Area] 93 mL/min/{1.73_m2} Normal >60 [facility] Comment on above: Order Comment: 411-1 Result Comment: mL/m in/1.73m2 CKD-EPI Creatinine Equation (2020) Performed By: #### L 500.2500, L100.0500 ####[facility] [address] [place], [address] Glucose [Mass/Vol] 88 mg/dL Normal 70-99 [facility] Comment on above: Order Comment: 411-1 Performed By: #### L 500.2500, L100.0500 ####[facility] [address] [place], [address] Potassium [Moles/Vol] 4.2 mmol/L Normal 3.3-5.1 [facility] Comment on above: Order Comment: 411-1 Performed By: #### L 500.2500, L100.0500 ####[facility] [address] [place], [address] Sodium [Moles/Vol] 139 mmol/L Normal 133-145 [facility] Comment on above: Order Comment: 411-1 Performed By: #### L 500.2500, L100.0500 ####[facility] [address] [place], [address] Urea nitrogen [Mass/Vol] 16 mg/dL Normal 4-19 [facility] Comment on above: Order Comment: 411-1 Performed By: #### L 500.2500, L100.0500 ####[facility] [address] [place], [address] CBC-Complete Blood Cnt No Di ffon 12-24-2024 Erythrocyte distribution width (RBC) [Ratio] 15.4 % High 11.6-14.6 [facility] Comment on above: Order Comment: 411-1 Performed By: #### L 500.2500, L100.0500 ####[facility] [address] [place], [address] Hematocrit (Bld) [Volume fraction] 39.8 % Low 40-54 [facility] Comment on above: Order Comment: 411-1 Performed By: #### L 500.2500, L100.0500 ####[facility] [address] [place], [address] Hemoglobin (Bld) [Mass/Vol] 12.4 g/dL Low 13.0-16.5 [facility] Comment on above: Order Comment: 411-1 Performed By: #### L 500.2500, L100.0500 ####[facility] [address] [place], [address] MCH (RBC) [Entitic mass] 26.6 pg Low 27.0-32.0 [facility] Comment on above: Order Comment: 411-1 Performed By: #### L 500.2500, L100.0500 ####[facility] [address] [place], [address] MCHC (RBC) [Mass/Vol] 31.2 g/dL Low 32-36 [facility] Comment on above: Order Comment: 411-1 Performed By: #### L 500.2500, L100.0500 ####[facility] [address] [place], [address] MCV (RBC) [Entitic vol] 85.4 fL Normal 80-94 [facility] Comment on above: Order Comment: 411-1 Performed By: #### L 500.2500, L100.0500 ####[facility] [address] [place], [address] Platelet mean volume (Bld) [Entitic vol] 10.4 fL Normal 6.2-12.0 [facility] Comment on above: Order Comment: 411-1 Performed By: #### L 500.2500, L100.0500 ####[facility] [address] [place], [address] Platelets (Bld) [#/Vol] 290 10*3/uL Normal 150-450 [facility] Comment on above: Order Comment: 411-1 Performed By: #### L 500.2500, L100.0500 ####[facility] [address] [place], [address] RBC (Bld) [#/Vol] 4.66 10*6/uL Normal 4.6-6.2 [facility] Comment on above: Order Comment: 411-1 Performed By: #### L 500.2500, L100.0500 ####[place] [facility] [address] [place], [address] RDW SD 48.1 fl High 35.1-43.9 [facility] Comment on above: Order Comment: 411-1 Performed By: #### L 500.2500, L100.0500 ####[facility] [address] [place], [address] WBC (Bld) [#/Vol] 16.6 10*3/uL High 4.4-11.0 [facility] Comment on above: Order Comment: 411-1 Performed By: #### L 500.2500, L100.0500 ####[facility] [address] [place], [address] Carbon dioxide, total [Moles /volume] in Central venous bloodOrdered By: Carlos Cavazos on 12-24-2024 CO2 [Moles/Vol] 23.7 mmol/L 21.0-32.0 [facility] Chloride assayOrdered By: Sharif Crouch on 12-24-2024 Chloride [Moles/Vol] 103 mmol/L 98-108 [facility] Erythrocyte distribution wid th ratioOrdered By: Carlos Cavazos on 12-24-2024 Erythrocyte distribution width (RBC) [Ratio] 15.4 % High 11.6-14.6 [facility] Erythrocyte distribution wid th standard deviationOrdered By: Carlos Cavazos on 12-24-2024 Erythrocyte distribution width (RBC) [Ratio] 48.1 fl High 35.1-43.9 [facility] Glomerular filtration rate ( GFR) estimation/1.73 sq m using serum, plasma, or whole bOrdered By: Carlos Cavazos on 12-24-2024 GFR/1.73 sq M.predicted among non-blacks MDRD (S/P/Bld) [Vol rate/Area] 93 mL/min/{1.73_m2} >60 [facility] Comment on above: mL/min/1.73m2 CKD-EP I Creatinine Equation (2020) Hematocrit Auto (Bld) [Volum e fraction]Ordered By: Carlos Cavazos on 12-24-2024 Hematocrit (Bld) [Volume fraction] 39.8 % Low 40-54 [facility] Hemoglobin measurementOrdere d By: Carlos Cavazos on 12-24-2024 Hemoglobin (Bld) [Mass/Vol] 12.4 g/dL Low 13.0-16.5 [facility] MCV (mean corpuscular volume ) determinationOrdered By: Carlos Cavazos on 12-24-2024 MCV (RBC) [Entitic vol] 85.4 fL 80-94 [facility] Mean corpuscular hemoglobin (MCH) determinationOrdered By: Carlos Cavazos on 12-24-2024 MCH (RBC) [Entitic mass] 26.6 pg Low 27.0-32.0 [facility] Mean corpuscular hemoglobin concentration (MCHC) determinationOrdered By: Carlos Cavazos on 12-24-2024 MCHC (RBC) [Mass/Vol] 31.2 g/dL Low 32-36 [facility] Mean platelet volume determi nationOrdered By: Carlos Cavazos on 12-24-2024 Platelet mean volume (Bld) [Entitic vol] 10.4 fL 6.2-12.0 [facility] Platelet countOrdered By: Sharif Crouch on 12-24-2024 Platelets (Bld) [#/Vol] 290 10*3/uL 150-450 [facility] Potassium measurement (mass/ volume)Ordered By: Carlos Cavazos on 12-24-2024 Potassium (Unsp spec) [Mass/Vol] 4.2 mmol/L 3.3-5.1 [facility] RBC Auto (Bld) [#/Vol]Ordere d By: Carlos Cavazos on 12-24-2024 RBC (Bld) [#/Vol] 4.66 10*6/uL 4.6-6.2 [facility] Serum creatinine measurement (mass/volume)Ordered By: Carlos Cavazos on 12-24-2024 Creatinine [Mass/Vol] 0.82 mg/dL 0.70-1.20 [facility] Serum glucose measurement (m ass/volume)Ordered By: Carlos Cavazos on 12-24-2024 Glucose [Mass/Vol] 88 mg/dL 70-99 [facility] Serum or plasma calcium oral urement (mass/volume)Ordered By: Carlos Cavazos on 12-24-2024 Calcium [Mass/Vol] 8.8 mg/dL 7.6-11.0 [facility] Serum or plasma urea nitroge n measurement (mass/volume)Ordered By: Carlos Cavazos on 12-24-2024 Urea nitrogen [Mass/Vol] 16 mg/dL 4-19 [facility] Sodium levelOrdered By: Moe Cavazos on 12-24-2024 Sodium [Moles/Vol] 139 mmol/L 133-145 [facility] White blood cell (WBC) count Ordered By: Carlos Cavazos on 12-24-2024 WBC (Bld) [#/Vol] 16.6 10*3/uL High 4.4-11.0 [facility] International normalized rat io (INR) calculationOrdered By: Karon Corrales on 12-22-2024 INR Coag (Bld) [Relative time] 2.6 {INR} [facility] Prothrombin Time w/INRon INR Coag (PPP) [Relative time] 2.6 {INR} Normal [facility] Comment on above: Order Comment: 411.1 Performed By: #### L 300.8772 ####[facility] [address] [facility]. [place], [place], [phone] PT Coag (PPP) [Time] 28.8 s High 11.7-14.9 [facility] Comment on above: Order Comment: 411.1 Performed By: #### L 300.3900 ####[facility] [address] [facility]. [place], [place], [phone] Prothrombin timeOrdered By: Karon Corrales on 12-22-2024 PT Coag (PPP) [Time] 28.8 s High 11.7-14.9 [facility] International normalized rat io (INR) calculationOrdered By: Karon Corrales on 12-18-2024 INR Coag (Bld) [Relative time] 2.4 {INR} [facility] Prothrombin Time w/INRon INR Coag (PPP) [Relative time] 2.4 {INR} Normal [facility] Comment on above: Order Comment: 411.1 Performed By: #### L 300.3900 ####[facility] [address] [place], [place], [phone] PT Coag (PPP) [Time] 26.7 s High 11.7-14.9 [facility] Comment on above: Order Comment: 411.1 Performed By: #### L 300.3900 ####[facility] [address] [place], [place], [phone] Prothrombin timeOrdered By: Karon Corrales on 12-18-2024 PT Coag (PPP) [Time] 26.7 s High 11.7-14.9 [facility] International normalized rat io (INR) calculationOrdered By: Karon Corrales on 12-15-2024 INR Coag (Bld) [Relative time] 2.3 {INR} [facility] Prothrombin Time w/INRon INR Coag (PPP) [Relative time] 2.3 {INR} Normal [facility] Comment on above: Order Comment: 411.1 Performed By: #### L 300.3900 ####[facility] [address] [place], [place], [address] Prothrombin timeOrdered By: Karon Corrales on 12-15-2024 PT Coag (PPP) [Time] 25.7 s High 11.7-14.9 [facility] Comment on above: Order Comment: 411.1 Performed By: #### L 300.3900 ####[facility] [address] [place], [place], [phone] International normalized rat io (INR) calculationOrdered By: Carlos Cavazos on 12-11-2024 INR Coag (Bld) [Relative time] 2.2 {INR} [facility] Prothrombin Time w/INRon INR Coag (PPP) [Relative time] 2.2 {INR} Normal [facility] Comment on above: Order Comment: 411-1 Performed By: #### L 300.3900 ####[facility] [address] [place], [address] Prothrombin timeOrdered By: Carlos Cavazos on 12-11-2024 PT Coag (PPP) [Time] 24.7 s High 11.7-14.9 [facility] Comment on above: Order Comment: 411-1 Performed By: #### L 300.3900 ####[facility] [address] [place], [place], [address] International normalized rat io (INR) calculationOrdered By: Karon Corrales on 12-08-2024 INR Coag (Bld) [Relative time] 2.2 {INR} [facility] Prothrombin Time w/INRon INR Coag (PPP) [Relative time] 2.2 {INR} Normal [facility] Comment on above: Order Comment: 411.1 Performed By: #### L 300.3900 ####[facility] [address] [place], [address] PT Coag (PPP) [Time] 25.0 s High 11.7-14.9 [facility] Comment on above: Order Comment: 411.1 Performed By: #### L 300.3900 ####[facility] [address] [place], [place], [address] Prothrombin timeOrdered By: Karon Corrales on 12-08-2024 PT Coag (PPP) [Time] 25.0 s High 11.7-14.9 [facility] International normalized rat io (INR) calculationOrdered By: Karon Corrales on 12-04-2024 INR Coag (Bld) [Relative time] 2.3 {INR} [facility] Prothrombin Time w/INRon INR Coag (PPP) [Relative time] 2.3 {INR} Normal [facility] Comment on above: Order Comment: 411.1 Performed By: #### L 300.3900 ####[facility] [address] [place], [address] PT Coag (PPP) [Time] 25.9 s High 11.7-14.9 [facility] Comment on above: Order Comment: 411.1 Performed By: #### L 300.3900 ####[facility] [address] [place], [address] Prothrombin timeOrdered By: Karon Corrales on 12-04-2024 PT Coag (PPP) [Time] 25.9 s High 11.7-14.9 [facility] International normalized rat io (INR) calculationOrdered By: Karon Corrales on 12-02-2024 INR Coag (Bld) [Relative time] 2.5 {INR} [facility] Prothrombin Time w/INRon INR Coag (PPP) [Relative time] 2.5 {INR} Normal [facility] Comment on above: Order Comment: 411.1 Performed By: #### L 300.3900 ####[facility] [address] [place], [address] PT Coag (PPP) [Time] 27.3 s High 11.7-14.9 [facility] Comment on above: Order Comment: 411.1 Performed By: #### L 300.3900 ####[facility] [address] [place], [address] Prothrombin timeOrdered By: Karon Corrales on 12-02-2024 PT Coag (PPP) [Time] 27.3 s High 11.7-14.9 [facility] International normalized rat io (INR) calculationOrdered By: Carlos Cavazos on 12-01-2024 INR Coag (Bld) [Relative time] 2.3 {INR} [facility] Prothrombin Time w/INRon INR Coag (PPP) [Relative time] 2.3 {INR} Normal [facility] Comment on above: Order Comment: 411-1 Performed By: #### L 300.3900 ####[facility] [address] [place], [address] PT Coag (PPP) [Time] 26.0 s High 11.7-14.9 [facility] Comment on above: Order Comment: 411-1 Performed By: #### L 300.3900 ####[facility] [address] [place], [address] Prothrombin timeOrdered By: Carlos Cavazos on 12-01-2024 PT Coag (PPP) [Time] 26.0 s High 11.7-14.9 [facility] International normalized rat io (INR) calculationOrdered By: Carlos Cavazos on 11-28-2024 INR Coag (Bld) [Relative time] 3.1 {INR} [facility] Prothrombin Time w/INRon INR Coag (PPP) [Relative time] 3.1 {INR} Normal [facility] Comment on above: Order Comment: 411-1 Performed By: #### L 300.3900 ####[facility] [address] [place], [address] PT Coag (PPP) [Time] 32.8 s High 11.7-14.9 [facility] Comment on above: Order Comment: 411-1 Performed By: #### L 300.3900 ####[facility] [address] [place], [address] Prothrombin timeOrdered By: Carlos Cavazos on 11-28-2024 PT Coag (PPP) [Time] 32.8 s High 11.7-14.9 [facility] International normalized rat io (INR) calculationOrdered By: Karon Corrales on 11-27-2024 INR Coag (Bld) [Relative time] 3.3 {INR} [facility] Prothrombin Time w/INRon INR Coag (PPP) [Relative time] 3.3 {INR} Normal [facility] Comment on above: Order Comment: 411.1 Performed By: #### L 300.3900 ####[facility] [address] [place], [place], [phone] PT Coag (PPP) [Time] 34.3 s High 11.7-14.9 [facility] Comment on above: Order Comment: 411.1 Performed By: #### L 300.3900 ####[facility] [address] [place], [place], [phone] Prothrombin timeOrdered By: Karon Corrales on 11-27-2024 PT Coag (PPP) [Time] 34.3 s High 11.7-14.9 [facility] International normalized rat io (INR) calculationOrdered By: Karon Corrales on 11-24-2024 INR Coag (Bld) [Relative time] 2.8 {INR} [facility] Prothrombin Time w/INRon INR Coag (PPP) [Relative time] 2.8 {INR} Normal [facility] Comment on above: Order Comment: 411.2 Performed By: #### L 300.3900 ####[facility] [address] [place], [place], [phone] PT Coag (PPP) [Time] 30.0 s High 11.7-14.9 [facility] Comment on above: Order Comment: 411.2 Performed By: #### L 300.3900 ####[facility] [address] [place], [place], [phone] Prothrombin timeOrdered By: Karon Corrales on 11-24-2024 PT Coag (PPP) [Time] 30.0 s High 11.7-14.9 [facility] International normalized rat io (INR) calculationOrdered By: Karon Corrales on 11-20-2024 INR Coag (Bld) [Relative time] 3.0 {INR} [facility] Prothrombin Time w/INRon INR Coag (PPP) [Relative time] 3.0 {INR} Normal [facility] Comment on above: Order Comment: 411.2 Performed By: #### L 300.3900 ####[facility] [address] [place], [place], [phone] PT Coag (PPP) [Time] 32.0 s High 11.7-14.9 [facility] Comment on above: Order Comment: 411.2 Performed By: #### L 300.3900 ####[facility] [address] [place], [place], [phone]) Prothrombin timeOrdered By: Karon Corrales on 11-20-2024 PT Coag (PPP) [Time] 32.0 s High 11.7-14.9 [facility] International normalized rat io (INR) calculationOrdered By: Karon Corrales on 11-17-2024 INR Coag (Bld) [Relative time] 2.9 {INR} [facility] Prothrombin Time w/INRon INR Coag (PPP) [Relative time] 2.9 {INR} Normal [facility] Comment on above: Order Comment: 411.2 Performed By: #### L 300.3900 ####[facility] [address] [place], [place], [phone] PT Coag (PPP) [Time] 30.7 s High 11.7-14.9 [facility] Comment on above: Order Comment: 411.2 Performed By: #### L 300.3900 ####[facility] [address] [place], [place], [phone]) Prothrombin timeOrdered By: Karon Corrales on 11-17-2024 PT Coag (PPP) [Time] 30.7 s High 11.7-14.9 [facility] International normalized rat io (INR) calculationOrdered By: Karon Corrales on 11-13-2024 INR Coag (Bld) [Relative time] 2.2 {INR} [facility] Prothrombin Time w/INRon INR Coag (PPP) [Relative time] 2.2 {INR} Normal [facility] Comment on above: Order Comment: 411.2 Performed By: #### L 300.3900 ####[facility] [address] [place], [place], [phone] PT Coag (PPP) [Time] 24.7 s High 11.7-14.9 [facility] Comment on above: Order Comment: 411.2 Performed By: #### L 300.3900 ####[facility] [address] [place], [place], [phone]) Prothrombin timeOrdered By: Karon Corrales on 11-13-2024 PT Coag (PPP) [Time] 24.7 s High 11.7-14.9 [facility] International normalized rat io (INR) calculationOrdered By: Karon Corrales on 11-10-2024 INR Coag (Bld) [Relative time] 2.6 {INR} [facility] Prothrombin Time w/INRon INR Coag (PPP) [Relative time] 2.6 {INR} Normal [facility] Comment on above: Order Comment: 411.2 Performed By: #### L 300.3900 ####[facility] [address] [place], [address] PT Coag (PPP) [Time] 28.7 s High 11.7-14.9 [facility] Comment on above: Order Comment: 411.2 Performed By: #### L 300.3900 ####[facility] [address] [place], [place], [phone] Prothrombin timeOrdered By: Karon Corrales on 11-10-2024 PT Coag (PPP) [Time] 28.7 s High 11.7-14.9 [facility] International normalized rat io (INR) calculationOrdered By: Karon Corrales on 11-06-2024 INR Coag (Bld) [Relative time] 3.1 {INR} [facility] Prothrombin Time w/INRon INR Coag (PPP) [Relative time] 3.1 {INR} Normal [facility] Comment on above: Order Comment: 411.2 Performed By: #### L 300.3900 ####[facility] [address] [place], [address] Prothrombin timeOrdered By: Karno Corrales on 11-06-2024 PT Coag (PPP) [Time] 33.0 s High 11.7-14.9 [facility] Comment on above: Order Comment: 411.2 Performed By: #### L 300.3900 ####[facility] [address] [place], [address] International normalized rat io (INR) calculationOrdered By: Carlos Cavazos on 11-03-2024 INR Coag (Bld) [Relative time] 3.0 {INR} [facility] Prothrombin Time w/INRon INR Coag (PPP) [Relative time] 3.0 {INR} Normal [facility] Comment on above: Order Comment: 411-2 Performed By: #### L 300.3900 ####[facility] [address] [place], [address] PT Coag (PPP) [Time] 31.4 s High 11.7-14.9 [facility] Comment on above: Order Comment: 411-2 Performed By: #### L 300.3900 ####[facility] [address] [place], [address] Prothrombin timeOrdered By: Carlos Cavazos on 11-03-2024 PT Coag (PPP) [Time] 31.4 s High 11.7-14.9 [facility] International normalized rat io (INR) calculationOrdered By: Karon Corrales on 10-30-2024 INR Coag (Bld) [Relative time] 2.4 {INR} [facility] Prothrombin Time w/INRon INR Coag (PPP) [Relative time] 2.4 {INR} Normal [facility] Comment on above: Performed By: #### L 300.3900 ####[facility] [address] [place], [place], [phone] PT Coag (PPP) [Time] 26.3 s High 11.7-14.9 [facility] Comment on above: Performed By: #### L 300.3900 ####[facility] [address] [place], [place], [phone] Prothrombin timeOrdered By: Karon Corrales on 10-30-2024 PT Coag (PPP) [Time] 26.3 s High 11.7-14.9 [facility] International normalized rat io (INR) calculationOrdered By: Karon Corrales on 10-27-2024 INR Coag (Bld) [Relative time] 2.2 {INR} [facility] Prothrombin Time w/INRon INR Coag (PPP) [Relative time] 2.2 {INR} Normal [facility] Comment on above: Order Comment: 411.2 Performed By: #### L 300.3900 ####[facility] [address] [place], [place], [phone] Prothrombin timeOrdered By: Karon Corrales on 10-27-2024 PT Coag (PPP) [Time] 24.5 s High 11.7-14.9 [facility] Comment on above: Order Comment: 411.2 Performed By: #### L 300.3900 ####[facility] [address] [place], [address] International normalized rat io (INR) calculationOrdered By: Karon Corrales on 10-23-2024 INR Coag (Bld) [Relative time] 2.5 {INR} [facility] Prothrombin Time w/INRon INR Coag (PPP) [Relative time] 2.5 {INR} Normal [facility] Comment on above: Order Comment: 411.2 Performed By: #### L 300.3900 ####[facility] [address] [place], [address] PT Coag (PPP) [Time] 27.9 s High 11.7-14.9 [facility] Comment on above: Order Comment: 411.2 Performed By: #### L 300.3900 ####[facility] [address], [address] Prothrombin timeOrdered By: Karon Corrales on 10-23-2024 PT Coag (PPP) [Time] 27.9 s High 11.7-14.9 [facility] International normalized rat io (INR) calculationOrdered By: Karon Corrales on 10-20-2024 INR Coag (Bld) [Relative time] 3.1 {INR} [facility] Prothrombin Time w/INRon INR Coag (PPP) [Relative time] 3.1 {INR} Normal [facility] Comment on above: Order Comment: 411.2 Performed By: #### L 300.3900 ####[facility] [address] [place], [address] PT Coag (PPP) [Time] 32.8 s High 11.7-14.9 [facility] Comment on above: Order Comment: 411.2 Performed By: #### L 300.3900 ####[facility] [address], [address] Prothrombin timeOrdered By: Karon Corrales on 10-20-2024 PT Coag (PPP) [Time] 32.8 s High 11.7-14.9 [facility] International normalized rat io (INR) calculationOrdered By: Karon Corrales on 10-16-2024 INR Coag (Bld) [Relative time] 2.8 {INR} [facility] Prothrombin Time w/INRon INR Coag (PPP) [Relative time] 2.8 {INR} Normal [facility] Comment on above: Order Comment: 411.2 Performed By: #### L 300.3900 ####[facility] [address] [place], [place], [phone] PT Coag (PPP) [Time] 30.4 s High 11.7-14.9 [facility] Comment on above: Order Comment: 411.2 Performed By: #### L 300.3900 ####[facility] [address] [place], [address](658 Prothrombin timeOrdered By: Karon Corrales on 10-16-2024 PT Coag (PPP) [Time] 30.4 s High 11.7-14.9 [facility] International normalized rat io (INR) calculationOrdered By: Carlos Cavazos on 10-13-2024 INR Coag (Bld) [Relative time] 1.9 {INR} [facility] Prothrombin Time w/INRon INR Coag (PPP) [Relative time] 1.9 {INR} Normal [facility] Comment on above: Order Comment: 411-2 Performed By: #### L 300.3900 ####[facility] [address] [place], [place], [phone] PT Coag (PPP) [Time] 22.4 s High 11.7-14.9 [facility] Comment on above: Order Comment: 411-2 Performed By: #### L 300.3900 ####[facility] [address] [place], [place], [phone] Prothrombin timeOrdered By: Carlos Cavazos on 10-13-2024 PT Coag (PPP) [Time] 22.4 s High 11.7-14.9 [facility] International normalized rat io (INR) calculationOrdered By: Karon Corrales on 10-09-2024 INR Coag (Bld) [Relative time] 3.0 {INR} [facility] Prothrombin Time w/INRon INR Coag (PPP) [Relative time] 3.0 {INR} Normal [facility] Comment on above: Order Comment: 411.2 Performed By: #### L 300.3900 ####[facility] [address] [place], [address] Prothrombin timeOrdered By: Karon Corrales on 10-09-2024 PT Coag (PPP) [Time] 31.8 s High 11.7-14.9 [facility] Comment on above: Order Comment: 411.2 Performed By: #### L 300.3900 ####[facility] [address] [place], [address] International normalized rat io (INR) calculationOrdered By: Carlos Cavazos on 10-06-2024 INR Coag (Bld) [Relative time] 2.7 {INR} [facility] Prothrombin Time w/INRon INR Coag (PPP) [Relative time] 2.7 {INR} Normal [facility] Comment on above: Order Comment: 411-2 Performed By: #### L 300.3900 ####[facility] [address] [place], [address] PT Coag (PPP) [Time] 29.6 s High 11.7-14.9 [facility] Comment on above: Order Comment: 411-2 Performed By: #### L 300.3900 ####[facility] [address] [place], [address] Prothrombin timeOrdered By: Carlos Cavazos on 10-06-2024 PT Coag (PPP) [Time] 29.6 s High 11.7-14.9 [facility] International normalized rat io (INR) calculationOrdered By: Karon Corrales on 10-02-2024 INR Coag (Bld) [Relative time] 2.3 {INR} [facility] Prothrombin Time w/INRon INR Coag (PPP) [Relative time] 2.3 {INR} Normal [facility] Comment on above: Order Comment: 411.2 Performed By: #### L 300.3900 ####[facility] [address] [place], [address] PT Coag (PPP) [Time] 26.0 s High 11.7-14.9 [facility] Comment on above: Order Comment: 411.2 Performed By: #### L 300.3900 ####[facility] [address] [place], [address] Prothrombin timeOrdered By: Karon Corrales on 10-02-2024 PT Coag (PPP) [Time] 26.0 s High 11.7-14.9 [facility] International normalized rat io (INR) calculationOrdered By: Karon Corrales on 09-30-2024 INR Coag (Bld) [Relative time] 3.1 {INR} [facility] Prothrombin Time w/INRon INR Coag (PPP) [Relative time] 3.1 {INR} Normal [facility] Comment on above: Order Comment: 411.2 Performed By: #### L 300.3900 ####[facility] [address] [place], [address] PT Coag (PPP) [Time] 32.6 s High 11.7-14.9 [facility] Comment on above: Order Comment: 411.2 Performed By: #### L 300.3900 ####[facility] [address] [place], [place], [phone] Prothrombin timeOrdered By: Karon Corrales on 09-30-2024 PT Coag (PPP) [Time] 32.6 s High 11.7-14.9 [facility] International normalized rat io (INR) calculationOrdered By: Karon Corrales on 09-25-2024 INR Coag (Bld) [Relative time] 2.4 {INR} [facility] Prothrombin Time w/INRon INR Coag (PPP) [Relative time] 2.4 {INR} Normal [facility] Comment on above: Order Comment: 411.2 Performed By: #### L 300.3900 ####[facility] [address] [place], [address] Prothrombin timeOrdered By: Karon Corrales on 09-25-2024 PT Coag (PPP) [Time] 26.7 s High 11.7-14.9 [facility] Comment on above: Order Comment: 411.2 Performed By: #### L 300.3900 ####[facility] [address] [place], [place], [phone] International normalized rat io (INR) calculationOrdered By: Karon Corrales on 09-22-2024 INR Coag (Bld) [Relative time] 2.5 {INR} [facility] Prothrombin Time w/INRon INR Coag (PPP) [Relative time] 2.5 {INR} Normal [facility] Comment on above: Order Comment: 411.2 Performed By: #### L 300.3900 ####[facility] [address] [place], [place], [phone] Prothrombin timeOrdered By: Karon Corrales on 09-22-2024 PT Coag (PPP) [Time] 27.4 s High 11.7-14.9 [facility] Comment on above: Order Comment: 411.2 Performed By: #### L 300.3900 ####[facility] [address] [place], [address] International normalized rat io (INR) calculationOrdered By: Karon Corrales on 09-18-2024 INR Coag (Bld) [Relative time] 2.2 {INR} [facility] Prothrombin Time w/INRon INR Coag (PPP) [Relative time] 2.2 {INR} Normal [facility] Comment on above: Order Comment: 411.2 Performed By: #### L 300.3900 ####[facility] [address] [place], [place], [phone] PT Coag (PPP) [Time] 25.1 s High 11.7-14.9 [facility] Comment on above: Order Comment: 411.2 Performed By: #### L 300.3900 ####[facility] [address] [place], [place], [phone] Prothrombin timeOrdered By: Karon Corrales on 09-18-2024 PT Coag (PPP) [Time] 25.1 s High 11.7-14.9 [facility] International normalized rat io (INR) calculationOrdered By: Carlos Cavazos on 09-15-2024 INR Coag (Bld) [Relative time] 2.4 {INR} [facility] Prothrombin Time w/INRon INR Coag (PPP) [Relative time] 2.4 {INR} Normal [facility] Comment on above: Order Comment: 411-2 Performed By: #### L 300.3900 ####[facility] [address] [place], [place], [phone] Prothrombin timeOrdered By: Carlos Cavazos on 09-15-2024 PT Coag (PPP) [Time] 26.3 s High 11.7-14.9 [facility] Comment on above: Order Comment: 411-2 Performed By: #### L 300.3900 ####[facility] [address] [place], [place], [phone] International normalized rat io (INR) calculationOrdered By: Karon Corrales on 09-11-2024 INR Coag (Bld) [Relative time] 2.0 {INR} [facility] Prothrombin Time w/INRon INR Coag (PPP) [Relative time] 2.0 {INR} Normal [facility] Comment on above: Order Comment: 411.2 Performed By: #### L 300.3900 ####[facility] [address] [place], [place], [phone] PT Coag (PPP) [Time] 22.9 s High 11.7-14.9 [facility] Comment on above: Order Comment: 411.2 Performed By: #### L 300.3900 ####[facility] [address] [place], [place], [phone](024) Prothrombin timeOrdered By: Karon Corrales on 09-11-2024 PT Coag (PPP) [Time] 22.9 s High 11.7-14.9 [facility] International normalized rat io (INR) calculationOrdered By: Karon Corrales on 09-08-2024 INR Coag (Bld) [Relative time] 2.0 {INR} [facility] Prothrombin Time w/INRon INR Coag (PPP) [Relative time] 2.0 {INR} Normal [facility] Comment on above: Order Comment: 411.2 Performed By: #### L 300.3900 ####[facility] [address] [place], [place], [phone] PT Coag (PPP) [Time] 22.8 s High 11.7-14.9 [facility] Comment on above: Order Comment: 411.2 Performed By: #### L 300.3900 ####[facility] [address] [place], [place], [phone](098) Prothrombin timeOrdered By: Karon Corrales on 09-08-2024 PT Coag (PPP) [Time] 22.8 s High 11.7-14.9 [facility] International normalized rat io (INR) calculationOrdered By: Carlos Cavazos on 09-04-2024 INR Coag (Bld) [Relative time] 1.7 {INR} [facility] Prothrombin Time w/INRon INR Coag (PPP) [Relative time] 1.7 {INR} Normal [facility] Comment on above: Order Comment: 411-2 Performed By: #### L 300.3900 ####[facility] [address], [address]([phone] PT Coag (PPP) [Time] 20.8 s High 11.7-14.9 [facility] Comment on above: Order Comment: 411-2 Performed By: #### L 300.3900 ####[facility] [address] [place], [address]([phone] Prothrombin timeOrdered By: Carlos Cavazos on 09-04-2024 PT Coag (PPP) [Time] 20.8 s High 11.7-14.9 [facility] International normalized rat io (INR) calculationOrdered By: Carlos Cavazos on 09-01-2024 INR Coag (Bld) [Relative time] 2.9 {INR} [facility] Prothrombin Time w/INRon INR Coag (PPP) [Relative time] 2.9 {INR} Normal [facility] Comment on above: Order Comment: 411-2 Performed By: #### L 300.3900 ####[facility] [address], [address] PT Coag (PPP) [Time] 30.7 s High 11.7-14.9 [facility] Comment on above: Order Comment: 411-2 Performed By: #### L 300.3900 ####[facility] [address], [address]([phone] Prothrombin timeOrdered By: Carlos Cavazos on 09-01-2024 PT Coag (PPP) [Time] 30.7 s High 11.7-14.[address] [facility] International normalized rat io (INR) calculationOrdered By: Carlos Cavazos on 08-28-2024 INR Coag (Bld) [Relative time] 2.4 {INR} [facility] Prothrombin Time w/INRon INR Coag (PPP) [Relative time] 2.4 {INR} Normal [facility] Comment on above: Order Comment: 411-2 Performed By: #### L 300.3900 ####[facility] [address] [place], [address] Prothrombin timeOrdered By: Carlos Cavazos on 08-28-2024 PT Coag (PPP) [Time] 26.7 s High 11.7-14.9 [facility] Comment on above: Order Comment: 411-2 Performed By: #### L 300.3900 ####[facility] [address] [place], [address] International normalized rat io (INR) calculationOrdered By: Karon Corrales on 08-25-2024 INR Coag (Bld) [Relative time] 1.8 {INR} [facility] Prothrombin Time w/INRon INR Coag (PPP) [Relative time] 1.8 {INR} Normal [facility] Comment on above: Order Comment: 411.2 Performed By: #### L 300.3900 ####[facility] [address] [place], [place], [phone] PT Coag (PPP) [Time] 21.6 s High 11.7-14.9 [facility] Comment on above: Order Comment: 411.2 Performed By: #### L 300.3900 ####[facility] [address] [place], [address] Prothrombin timeOrdered By: Karon Corrales on 08-25-2024 PT Coag (PPP) [Time] 21.6 s High 11.7-14.9 [facility] International normalized rat io (INR) calculationOrdered By: Karon Corrales on 08-21-2024 INR Coag (Bld) [Relative time] 1.7 {INR} [facility] PSA, total screeningOrdered By: Karon Corrales on 08-21-2024 Prostate Specific Antigen Screen 0.52 ng/mL 0.02-4.00 [facility] Comment on above: This test was perfor med using the [employer] tPSA method. Measured values of a patient sample can vary depending on the testing procedure used. PSA values determined on patient samples by different testing procedures cannot be used interchangeably. If there is a change in PSA assays while monitoring therapy, sequential testing should be performed to confirm baseline values. PSA,Total - Annual Screenon 08-21-2024 PSA,TOT SCREEN 0.52 ng/mL Normal 0.02-4.00 [facility] Comment on above: Order [...] values. Performed By: #### L 501.9910, L300.3900 ####[facility] [address] [place], [address] Prothrombin Time w/INRon INR Coag (PPP) [Relative time] 1.7 {INR} Normal [facility] Comment on above: Order Comment: 411.2 Performed By: #### L 501.9910, L300.3900 ####[facility] [address] [place], [address] Prothrombin timeOrdered By: Karon Corrales on 08-21-2024 PT Coag (PPP) [Time] 20.1 s High 11.7-14.9 [facility] Comment on above: Order Comment: 411.2 Performed By: #### L 501.9910, L300.3900 ####[facility] [address] [place], [place], [phone] International normalized rat io (INR) calculationOrdered By: Karon Corrales on 08-18-2024 INR Coag (Bld) [Relative time] 3.0 {INR} [facility] Prothrombin Time w/INRon INR Coag (PPP) [Relative time] 3.0 {INR} Normal [facility] Comment on above: Order Comment: 411.2 Performed By: #### L 300.3900 ####[facility] [address] [place], [place], [phone](648) PT Coag (PPP) [Time] 31.4 s High 11.7-14.9 [facility] Comment on above: Order Comment: 411.2 Performed By: #### L 300.3900 ####[facility] [address] [place], [place], [phone](874) Prothrombin timeOrdered By: Karon Corrales on 08-18-2024 PT Coag (PPP) [Time] 31.4 s High 11.7-14.9 [facility] International normalized rat io (INR) calculationOrdered By: Karon Corrales on 08-14-2024 INR Coag (Bld) [Relative time] 2.4 {INR} [facility] Prothrombin Time w/INRon INR Coag (PPP) [Relative time] 2.4 {INR} Normal [facility] Comment on above: Order Comment: 411.2 Performed By: #### L 300.3900 ####[facility] [address] [place], [address] PT Coag (PPP) [Time] 26.6 s High 11.7-14.9 [facility] Comment on above: Order Comment: 411.2 Performed By: #### L 300.3900 ####[facility] [address] [place], [place], [phone](124) Prothrombin timeOrdered By: Karon Corrales on 08-14-2024 PT Coag (PPP) [Time] 26.6 s High 11.7-14.9 [facility] International normalized rat io (INR) calculationOrdered By: Karon Corrales on 08-11-2024 INR Coag (Bld) [Relative time] 3.1 {INR} [facility] Prothrombin Time w/INRon INR Coag (PPP) [Relative time] 3.1 {INR} Normal [facility] Comment on above: Order Comment: 411.2 Performed By: #### L 300.3900 ####[facility] [address] [place], [place], [phone](015) PT Coag (PPP) [Time] 32.4 s High 11.7-14.9 [facility] Comment on above: Order Comment: 411.2 Performed By: #### L 300.3900 ####[facility] [address] [place], [place], [phone] Prothrombin timeOrdered By: Karon Corrales on 08-11-2024 PT Coag (PPP) [Time] 32.4 s High 11.7-14.9 [facility] International normalized rat io (INR) calculationOrdered By: Carlos Cavazos on 08-07-2024 INR Coag (Bld) [Relative time] 2.8 {INR} [facility] Prothrombin Time w/INRon INR Coag (PPP) [Relative time] 2.8 {INR} Normal [facility] Comment on above: Order Comment: 411-2 Performed By: #### L 300.3900 ####[facility] [address] [place], [place], [phone] PT Coag (PPP) [Time] 30.3 s High 11.7-14.9 [facility] Comment on above: Order Comment: 411-2 Performed By: #### L 300.3900 ####[facility] [address] [place], [address] Prothrombin timeOrdered By: Carlos Cavazos on 08-07-2024 PT Coag (PPP) [Time] 30.3 s High 11.7-14.9 [facility] [employer] normalized rat io (INR) calculationOrdered By: Carlos Cavazos on 08-04-2024 INR Coag (Bld) [Relative time] 1.9 {INR} [facility] Prothrombin Time w/INRon INR Coag (PPP) [Relative time] 1.9 {INR} Normal [facility] Comment on above: Order Comment: 411-2 Performed By: #### L 300.3900 ####[facility] [address] [place], [place], [phone] PT Coag (PPP) [Time] 22.1 s High 11.7-14.9 [facility] Comment on above: Order Comment: 411-2 Performed By: #### L 300.3900 ####[facility] [address] [place], [place], [phone] Prothrombin timeOrdered By: Carlos Cavazos on 08-04-2024 PT Coag (PPP) [Time] 22.1 s High 11.7-14.9 [facility] [employer] normalized rat io (INR) calculationOrdered By: Karon Corrales on 07-31-2024 INR Coag (Bld) [Relative time] 3.2 {INR} [facility] Prothrombin Time w/INRon INR Coag (PPP) [Relative time] 3.2 {INR} Normal [facility] Comment on above: Order Comment: 411.2 Performed By: #### L 300.3900 ####[facility] [address] [place], [place], [phone] PT Coag (PPP) [Time] 33.5 s High 11.7-14.9 [facility] Comment on above: Order Comment: 411.2 Performed By: #### L 300.3900 ####[facility] [address] [place], [place], [phone] Prothrombin timeOrdered By: Karon Corrales on 07-31-2024 PT Coag (PPP) [Time] 33.5 s High 11.7-14.9 [facility] [employer] normalized rat io (INR) calculationOrdered By: Karon Corrales on 07-28-2024 INR Coag (Bld) [Relative time] 2.7 {INR} [facility] Prothrombin Time w/INRon INR Coag (PPP) [Relative time] 2.7 {INR} Normal [facility] Comment on above: Order Comment: 411.2 Performed By: #### L 300.3900 ####[facility] [address] [place], [place], [phone] PT Coag (PPP) [Time] 29.6 s High 11.7-14.9 [facility] Comment on above: Order Comment: 411.2 Performed By: #### L 300.3900 ####[facility] [address] [place], [place], [phone] Prothrombin timeOrdered By: Karon Corrales on 07-28-2024 PT Coag (PPP) [Time] 29.6 s High 11.7-14.9 [facility] [employer] normalized rat io (INR) calculationOrdered By: Carlos Cavazos on 07-25-2024 INR Coag (Bld) [Relative time] 3.0 {INR} [facility] Prothrombin Time w/INRon INR Coag (PPP) [Relative time] 3.0 {INR} Normal [facility] Comment on above: Order Comment: 411-2 Performed By: #### L 300.3900 ####[facility] [address] [place], [address] Prothrombin timeOrdered By: Carlos Cavazos on 07-25-2024 PT Coag (PPP) [Time] 32.1 s High 11.7-14.9 [facility] Comment on above: Order Comment: 411-2 Performed By: #### L 300.3900 ####[facility] [address] [place], [place], [phone] International normalized rat io (INR) calculationOrdered By: Karon Corrales on 07-24-2024 INR Coag (Bld) [Relative time] 3.4 {INR} [facility] Prothrombin Time w/INRon INR Coag (PPP) [Relative time] 3.4 {INR} Normal [facility] Comment on above: Order Comment: 411.2 Performed By: #### L 300.3900 ####[facility] [address] [place], [place], [phone] Prothrombin timeOrdered By: Karon Corrales on 07-24-2024 PT Coag (PPP) [Time] 35.4 s High 11.7-14.9 [facility] Comment on above: Order Comment: 411.2 Performed By: #### L 300.3900 ####[facility] [address] [place], [place], [phone] International normalized rat io (INR) calculationOrdered By: Karon Corrales on 07-21-2024 INR Coag (Bld) [Relative time] 1.6 {INR} [facility] Prothrombin Time w/INRon INR Coag (PPP) [Relative time] 1.6 {INR} Normal [facility] Comment on above: Order Comment: 411.2 Performed By: #### L 300.3900 ####[facility] [address] [place], [place], [phone] PT Coag (PPP) [Time] 19.6 s High 11.7-14.9 [facility] Comment on above: Order Comment: 411.2 Performed By: #### L 300.3900 ####[facility] [address] [place], [place], [phone](016) Prothrombin timeOrdered By: Karon Corrales on 07-21-2024 PT Coag (PPP) [Time] 19.6 s High 11.7-14.9 [facility] [employer] normalized rat io (INR) calculationOrdered By: Karon Corrales on 07-17-2024 INR Coag (Bld) [Relative time] 2.9 {INR} [facility] Prothrombin Time w/INRon INR Coag (PPP) [Relative time] 2.9 {INR} Normal [facility] Comment on above: Order Comment: 411.2 Performed By: #### L 300.3900 ####[facility] [address] [place], [place], [phone] PT Coag (PPP) [Time] 31.1 s High 11.7-14.9 [facility] Comment on above: Order Comment: 411.2 Performed By: #### L 300.3900 ####[facility] [address] [place], [address] Prothrombin timeOrdered By: Karon Corrales on 07-17-2024 PT Coag (PPP) [Time] 31.1 s High 11.7-14.9 [facility] [employer] normalized rat io (INR) calculationOrdered By: Carlos Cavazos on 07-14-2024 INR Coag (Bld) [Relative time] 2.5 {INR} [facility] Prothrombin Time w/INRon INR Coag (PPP) [Relative time] 2.5 {INR} Normal [facility] Comment on above: Order Comment: 411-2 Performed By: #### L 300.3900 ####[facility] [address] [place], [address] PT Coag (PPP) [Time] 27.5 s High 11.7-14.9 [facility] Comment on above: Order Comment: 411-2 Performed By: #### L 300.3900 ####[facility] [address] [place], [address] Prothrombin timeOrdered By: Carlos Cavazos on 07-14-2024 PT Coag (PPP) [Time] 27.5 s High 11.7-14.9 [facility] [employer] normalized rat io (INR) calculationOrdered By: Carlos Cavazos on 07-11-2024 INR Coag (Bld) [Relative time] 2.5 {INR} [facility] Prothrombin Time w/INRon INR Coag (PPP) [Relative time] 2.5 {INR} Normal [facility] Comment on above: Performed By: #### L 300.3900 ####[facility] [address] [place], [address] PT Coag (PPP) [Time] 27.7 s High 11.7-14.9 [facility] Comment on above: Performed By: #### L 300.3900 ####[facility] [address] [place], [place], [phone] Prothrombin timeOrdered By: Carlos Cavazos on 07-11-2024 PT Coag (PPP) [Time] 27.7 s High 11.7-14.9 [facility] Prothrombin Time w/INRon INR Normal [facility] Comment on above: Order Comment: 411.2 Result Comment: QNS TUBE NOT FILLED Performed By: #### L 300.3900 ####[facility] [address] [place], [place], [phone] PROTIME Normal 11.7-14.9 [facility] Comment on above: Order Comment: 411.2 Result Comment: QNS TUBE NOT FILLED Performed By: #### L 300.3900 ####[facility] [address] [place], [place], [phone]) International normalized rat io (INR) calculationOrdered By: Kvng Crisostomo on 07-07-2024 INR Coag (Bld) [Relative time] 2.5 {INR} [facility] Prothrombin Time w/INRon INR Coag (PPP) [Relative time] 2.5 {INR} Normal [facility] Comment on above: Order Comment: 411.2 Performed By: #### L 300.3900 ####[facility] [address] [place], [address] PT Coag (PPP) [Time] 27.2 s High 11.7-14.9 [facility] Comment on above: Order Comment: 411.2 Performed By: #### L 300.3900 ####[facility] [address] [place], [address] Prothrombin timeOrdered By: Kvng Crisostomo on 07-07-2024 PT Coag (PPP) [Time] 27.2 s High 11.7-14.9 [facility] [employer] normalized rat io (INR) calculationOrdered By: Kvng Crisostomo on 07-03-2024 INR Coag (Bld) [Relative time] 2.5 {INR} [facility] Prothrombin Time w/INRon INR Coag (PPP) [Relative time] 2.5 {INR} Normal [facility] Comment on above: Order Comment: 411.2 Performed By: #### L 300.3900 ####[facility] [address] [place], [address] PT Coag (PPP) [Time] 27.2 s High 11.7-14.9 [facility] Comment on above: Order Comment: 411.2 Performed By: #### L 300.3900 ####[facility] [address] [place], [address] Prothrombin timeOrdered By: Kvng Crisostomo on 07-03-2024 PT Coag (PPP) [Time] 27.2 s High 11.7-14.9 [facility] [employer] normalized rat io (INR) calculationOrdered By: Kvng Crisostomo on 06-30-2024 INR Coag (Bld) [Relative time] 2.4 {INR} [facility] Prothrombin Time w/INRon INR Coag (PPP) [Relative time] 2.4 {INR} Normal [facility] Comment on above: Order Comment: 411.2 Performed By: #### L 300.3900 ####[facility] [address] [place], [address] PT Coag (PPP) [Time] 26.8 s High 11.7-14.9 [facility] Comment on above: Order Comment: 411.2 Performed By: #### L 300.3900 ####[facility] [address] [place], [address] Prothrombin timeOrdered By: Kvng Crisostomo on 06-30-2024 PT Coag (PPP) [Time] 26.8 s High 11.7-14.9 [facility] [employer] normalized rat io (INR) calculationOrdered By: Kvng Crisostomo on 06-26-2024 INR Coag (Bld) [Relative time] 2.5 {INR} [facility] Prothrombin Time w/INRon INR Coag (PPP) [Relative time] 2.5 {INR} Normal [facility] Comment on above: Order Comment: 411.2 Performed By: #### L 300.3900 ####[facility] [address] [place], [address] PT Coag (PPP) [Time] 27.5 s High 11.7-14.9 [facility] Comment on above: Order Comment: 411.2 Performed By: #### L 300.3900 ####[facility] [address] [place], [place], [phone]([phone] Prothrombin timeOrdered By: Kvng Crisostomo on 06-26-2024 PT Coag (PPP) [Time] 27.5 s High 11.7-14.9 [facility] [employer] normalized rat io (INR) calculationOrdered By: Carlos Cavazos on 06-23-2024 INR Coag (Bld) [Relative time] 2.8 {INR} [facility] Prothrombin Time w/INRon INR Coag (PPP) [Relative time] 2.8 {INR} Normal [facility] Comment on above: Order Comment: 411-2 Performed By: #### L 300.3900 ####[facility] [address] [place], [address] PT Coag (PPP) [Time] 29.7 s High 11.7-14.9 [facility] Comment on above: Order Comment: 411-2 Performed By: #### L 300.3900 ####[facility] [address] [place], [address] Prothrombin timeOrdered By: Carlos Cavazos on 06-23-2024 PT Coag (PPP) [Time] 29.7 s High 11.7-14.9 [facility] [employer] normalized rat io (INR) calculationOrdered By: Kvng Crisostomo on 06-19-2024 INR Coag (Bld) [Relative time] 2.6 {INR} [facility] Prothrombin Time w/INRon INR Coag (PPP) [Relative time] 2.6 {INR} Normal [facility] Comment on above: Order Comment: 411.2 Performed By: #### L 300.3900 ####[facility] [address] [place], [address] PT Coag (PPP) [Time] 28.6 s High 11.7-14.9 [facility] Comment on above: Order Comment: 411.2 Performed By: #### L 300.3900 ####[facility] [address] [place], [address] Prothrombin timeOrdered By: Kvng Crisostomo on 06-19-2024 PT Coag (PPP) [Time] 28.6 s High 11.7-14.9 [facility] [employer] normalized rat io (INR) calculationOrdered By: Kvng Crisostomo on 06-16-2024 INR Coag (Bld) [Relative time] 2.5 {INR} [facility] Prothrombin Time w/INRon INR Coag (PPP) [Relative time] 2.5 {INR} Normal [facility] Comment on above: Order Comment: 411.2 Performed By: #### L 300.3900 ####[facility] [address] [place], [address] PT Coag (PPP) [Time] 27.3 s High 11.7-14.9 [facility] Comment on above: Order Comment: 411.2 Performed By: #### L 300.3900 ####[facility] [address] [place], [address] Prothrombin timeOrdered By: Kvng Crisostomo on 06-16-2024 PT Coag (PPP) [Time] 27.3 s High 11.7-14.9 [facility] [employer] normalized rat io (INR) calculationOrdered By: Kvng Crisostomo on 06-12-2024 INR Coag (Bld) [Relative time] 2.1 {INR} [facility] Prothrombin Time w/INRon INR Coag (PPP) [Relative time] 2.1 {INR} Normal [facility] Comment on above: Order Comment: 411.2 Performed By: #### L 300.3900 ####[facility] [address] [place], [address] PT Coag (PPP) [Time] 24.0 s High 11.7-14.9 [facility] Comment on above: Order Comment: 411.2 Performed By: #### L 300.3900 ####[facility] [address] [place], [address] Prothrombin timeOrdered By: Kvng Crisostomo on 06-12-2024 PT Coag (PPP) [Time] 24.0 s High 11.7-14.9 [facility] [employer] normalized rat io (INR) calculationOrdered By: Carlos Cavazos on 06-09-2024 INR Coag (Bld) [Relative time] 1.5 {INR} [facility] Prothrombin Time w/INRon INR Coag (PPP) [Relative time] 1.5 {INR} Normal [facility] Comment on above: Order Comment: 411-2 Performed By: #### L 300.3900 ####[facility] [address], [address] PT Coag (PPP) [Time] 18.0 s High 11.7-14.9 [facility] Comment on above: Order Comment: 411-2 Performed By: #### L 300.3900 ####[facility] [address], [address] Prothrombin timeOrdered By: Carlos Cavazos on 06-09-2024 PT Coag (PPP) [Time] 18.0 s High 11.7-14.9 [facility] [employer] normalized rat io (INR) calculationOrdered By: Kvng Crisostomo on 06-05-2024 INR Coag (Bld) [Relative time] 2.8 {INR} [facility] Prothrombin Time w/INRon INR Coag (PPP) [Relative time] 2.8 {INR} Normal [facility] Comment on above: Order Comment: 411.2 Performed By: #### L 300.3900 ####[facility] [address], [address] PT Coag (PPP) [Time] 30.3 s High 11.7-14.9 [facility] Comment on above: Order Comment: 411.2 Performed By: #### L 300.3900 ####[facility] [address] [place], [address] Prothrombin timeOrdered By: Kvng Crisostomo on 06-05-2024 PT Coag (PPP) [Time] 30.3 s High 11.7-14.9 [facility] [employer] normalized rat io (INR) calculationOrdered By: Kvng Crisostomo on 06-02-2024 INR Coag (Bld) [Relative time] 2.6 {INR} [facility] Prothrombin Time w/INRon INR Coag (PPP) [Relative time] 2.6 {INR} Normal [facility] Comment on above: Order Comment: 411.2 Performed By: #### L 300.3900 ####[facility] [address] [place], [address] PT Coag (PPP) [Time] 28.6 s High 11.7-14.9 [facility] Comment on above: Order Comment: 411.2 Performed By: #### L 300.3900 ####[facility] [address] [facility] [address] Prothrombin timeOrdered By: Kvng Crisostomo on 06-02-2024 PT Coag (PPP) [Time] 28.6 s High 11.7-14.9 [facility] International normalized rat io (INR) calculationOrdered By: Kvng Crisostomo on 05-29-2024 INR Coag (Bld) [Relative time] 2.5 {INR} [facility] Prothrombin Time w/INRon INR Coag (PPP) [Relative time] 2.5 {INR} Normal [facility] Comment on above: Order Comment: 411.2 Performed By: #### L 300.3900 ####[facility] [address] [place], [address] PT Coag (PPP) [Time] 27.7 s High 11.7-14.9 [facility] Comment on above: Order Comment: 411.2 Performed By: #### L 300.3900 ####[facility] [address] [place], [address] Prothrombin timeOrdered By: Kvng Crisostomo on 05-29-2024 PT Coag (PPP) [Time] 27.7 s High 11.7-14.9 [facility] [employer] normalized rat io (INR) calculationOrdered By: Carlos Cavazos on 05-26-2024 INR Coag (Bld) [Relative time] 2.2 {INR} [facility] Prothrombin Time w/INRon INR Coag (PPP) [Relative time] 2.2 {INR} Normal [facility] Comment on above: Order Comment: 411-2 Performed By: #### L 300.3900 ####[facility] [address] [place], [place], [phone] PT Coag (PPP) [Time] 24.5 s High 11.7-14.9 [facility] Comment on above: Order Comment: 411-2 Performed By: #### L 300.3900 ####[facility] [address] [place], [address] Prothrombin timeOrdered By: Carlos Cavazos on 05-26-2024 PT Coag (PPP) [Time] 24.5 s High 11.7-14.9 [facility] International normalized rat io (INR) calculationOrdered By: Kvng Crisostomo on 05-22-2024 INR Coag (Bld) [Relative time] 2.8 {INR} [facility] Prothrombin Time w/INRon INR Coag (PPP) [Relative time] 2.8 {INR} Normal [facility] Comment on above: Order Comment: 411.2 Performed By: #### L 300.3900 ####[facility] [address] [place], [place], [phone] PT Coag (PPP) [Time] 30.3 s High 11.7-14.9 [facility] Comment on above: Order Comment: 411.2 Performed By: #### L 300.3900 ####[facility] [address] [place], [address] Prothrombin timeOrdered By: Kvng Crisostomo on 05-22-2024 PT Coag (PPP) [Time] 30.3 s High 11.7-14.9 [facility] International normalized rat io (INR) calculationOrdered By: Kvng Crisostomo on 05-20-2024 INR Coag (Bld) [Relative time] 4.0 {INR} High [facility] Comment on above: CRITICAL VALUE CASEY D TO [id number]/14/25 08 Diana Srinivasan.RESULTS READ BACK BY SAME. Prothrombin Time w/INRon INR Coag (PPP) [Relative time] 4.0 {INR} Invalid Interpretation Code [facility] Comment on above: Order Comment: 411.2 Result Comment: CRIT ICAL VALUE CALLED TO [id number]/14/25 [facility] Diana Mattson.RESULTS READ BACK BY SAME. Performed By: #### L 300.3900 ####[facility] [address] [place], [place], [phone]([phone] PT Coag (PPP) [Time] 39.9 s High 11.7-14.9 [facility] Comment on above: Order Comment: 411.2 Performed By: #### L 300.3900 ####[facility] [address] [place], [place], [phone]([phone] Prothrombin timeOrdered By: Kvng Crisostomo on 05-20-2024 PT Coag (PPP) [Time] 39.9 s High 11.7-14.9 [facility] International normalized rat io (INR) calculationOrdered By: Kvng Crisostomo on 05-19-2024 INR Coag (Bld) [Relative time] 3.4 {INR} [facility] Prothrombin Time w/INRon INR Coag (PPP) [Relative time] 3.4 {INR} Normal [facility] Comment on above: Order Comment: 411.2 Performed By: #### L 300.3900 ####[facility] [address] [place], [place], [phone]) PT Coag (PPP) [Time] 35.4 s High 11.7-14.9 [facility] Comment on above: Order Comment: 411.2 Performed By: #### L 300.3900 ####[facility] [address] [place], [place], [phone]([phone] Prothrombin timeOrdered By: Kvng Crisostomo on 05-19-2024 PT Coag (PPP) [Time] 35.4 s High 11.7-14.9 [facility] International normalized rat io (INR) calculationOrdered By: Kvng Crisostomo on 05-15-2024 INR Coag (Bld) [Relative time] 2.6 {INR} [facility] Prothrombin Time w/INRon INR Coag (PPP) [Relative time] 2.6 {INR} Normal [facility] Comment on above: Order Comment: 411.2 Performed By: #### L 300.3900 ####[facility] [address] [place], [place], [phone] PT Coag (PPP) [Time] 28.7 s High 11.7-14.9 [facility] Comment on above: Order Comment: 411.2 Performed By: #### L 300.3900 ####[facility] [address], [address] Prothrombin timeOrdered By: Kvng Crisostomo on 05-15-2024 PT Coag (PPP) [Time] 28.7 s High 11.7-14.9 [facility] International normalized rat io (INR) calculationOrdered By: Carlos Cavazos on 05-12-2024 INR Coag (Bld) [Relative time] 2.1 {INR} [facility] Prothrombin Time w/INRon INR Coag (PPP) [Relative time] 2.1 {INR} Normal [facility] Comment on above: Order Comment: 411-2 Performed By: #### L 300.3900 ####[facility] [address] [place], [address] PT Coag (PPP) [Time] 24.1 s High 11.7-14.9 [facility] Comment on above: Order Comment: 411-2 Performed By: #### L 300.3900 ####[facility] [address] [place], [place], [phone] Prothrombin timeOrdered By: Carlos Cavazos on 05-12-2024 PT Coag (PPP) [Time] 24.1 s High 11.7-14.9 [facility] International normalized rat io (INR) calculationOrdered By: Kvng Crisostomo on 05-09-2024 INR Coag (Bld) [Relative time] 3.4 {INR} [facility] Prothrombin Time w/INRon INR Coag (PPP) [Relative time] 3.4 {INR} Normal [facility] Comment on above: Order Comment: 411.2 Performed By: #### L 300.3900 ####[facility] [address] [place], [place], [phone] PT Coag (PPP) [Time] 35.4 s High 11.7-14.9 [facility] Comment on above: Order Comment: 411.2 Performed By: #### L 300.3900 ####[facility] [address] [place], [place], [phone] Prothrombin timeOrdered By: Kvng Crisostomo on 05-09-2024 PT Coag (PPP) [Time] 35.4 s High 11.7-14.9 [facility] International normalized rat io (INR) calculationOrdered By: Kvng Crisostomo on 05-08-2024 INR Coag (Bld) [Relative time] 4.1 {INR} High [facility] Comment on above: CRITICAL VALUE CASEY D TO [facility]05/08/24 0950 Karen Jamison.RESULTS READ BACK BY SAME. Prothrombin Time w/INRon INR Coag (PPP) [Relative time] 4.1 {INR} Invalid Interpretation Code [facility] Comment on above: Order Comment: 411.2 Result Comment: CRIT ICAL VALUE CALLED TO WILMER HAIRSTONME05/08/24 0950 Karen Jamison.RESULTS READ BACK BY SAME. Performed By: #### L 300.3900 ####[facility] [address] [place], [address] PT Coag (PPP) [Time] 40.8 s High 11.7-14.9 [facility] Comment on above: Order Comment: 411.2 Performed By: #### L 300.3900 ####[facility] [address] [place], [address] Prothrombin timeOrdered By: Babbaljeet Andressa on 05-08-2024 PT Coag (PPP) [Time] 40.8 s High 11.7-14.9 [facility] International normalized rat io (INR) calculationOrdered By: Babbaljeet Crisostomo on 05-05-2024 INR Coag (Bld) [Relative time] 3.2 {INR} [facility] Prothrombin Time w/INRon INR Coag (PPP) [Relative time] 3.2 {INR} Normal [facility] Comment on above: Order Comment: 411.2 Performed By: #### L 300.3900 ####[facility] [address] [place], [address] PT Coag (PPP) [Time] 32.5 s High 11.7-14.9 [facility] Comment on above: Order Comment: 411.2 Performed By: #### L 300.3900 ####[facility] [address] [place], [address] Prothrombin timeOrdered By: Babbaljeet Crisostomo on 05-05-2024 PT Coag (PPP) [Time] 32.5 s High 11.7-14.9 [facility] International normalized rat io (INR) calculationOrdered By: Babbaljeet Crisostomo on 05-01-2024 INR Coag (Bld) [Relative time] 3.1 {INR} [facility] Prothrombin Time w/INRon INR Coag (PPP) [Relative time] 3.1 {INR} Normal [facility] Comment on above: Order Comment: 411.2 Performed By: #### L 300.3900 ####[facility] [address] [place], [address] PT Coag (PPP) [Time] 31.9 s High 11.7-14.9 [facility] Comment on above: Order Comment: 411.2 Performed By: #### L 300.3900 ####[facility] [address] [place], [address] Prothrombin timeOrdered By: Kvng Crisostomo on 05-01-2024 PT Coag (PPP) [Time] 31.9 s High 11.7-14.9 [facility] International normalized rat io (INR) calculationOrdered By: Carlos Cavazos on 04-28-2024 INR Coag (Bld) [Relative time] 2.6 {INR} [facility] Prothrombin Time w/INRon INR Coag (PPP) [Relative time] 2.6 {INR} Normal [facility] Comment on above: Order Comment: 411-2 Performed By: #### L 300.3900 ####[facility] [address] [place], [address] PT Coag (PPP) [Time] 27.3 s High 11.7-14.9 [facility] Comment on above: Order Comment: 411-2 Performed By: #### L 300.3900 ####[facility] [address] [place], [address] Prothrombin timeOrdered By: Carlos Cavazos on 04-28-2024 PT Coag (PPP) [Time] 27.3 s High 11.7-14.9 [facility] International normalized rat io (INR) calculationOrdered By: Kvng Crisostomo on 04-24-2024 INR Coag (Bld) [Relative time] 3.6 {INR} [facility] Prothrombin Time w/INRon INR Coag (PPP) [Relative time] 3.6 {INR} Normal [facility] Comment on above: Order Comment: 411.2 Performed By: #### L 300.3900 ####[facility] [address] [place], [address] PT Coag (PPP) [Time] 35.6 s High 11.7-14.9 [facility] Comment on above: Order Comment: 411.2 Performed By: #### L 300.3900 ####[facility] [address] [place], [address] Prothrombin timeOrdered By: Kvng Crisostomo on 04-24-2024 PT Coag (PPP) [Time] 35.6 s High 11.7-14.9 [facility] International normalized rat io (INR) calculationOrdered By: Carlos Cavazos on 04-21-2024 INR Coag (Bld) [Relative time] 2.8 {INR} [facility] Prothrombin Time w/INRon INR Coag (PPP) [Relative time] 2.8 {INR} Normal [facility] Comment on above: Order Comment: 411-2 Performed By: #### L 300.3900 ####[facility] [address] [place], [address] PT Coag (PPP) [Time] 29.4 s High 11.7-14.9 [facility] Comment on above: Order Comment: 411-2 Performed By: #### L 300.3900 ####[facility] [address] [place], [address] Prothrombin timeOrdered By: Carlos Cavazos on 04-21-2024 PT Coag (PPP) [Time] 29.4 s High 11.7-14.9 [facility] International normalized rat io (INR) calculationOrdered By: Kvng Crisostomo on 04-17-2024 INR Coag (Bld) [Relative time] 3.1 {INR} [facility] Prothrombin Time w/INRon INR Coag (PPP) [Relative time] 3.1 {INR} Normal [facility] Comment on above: Order Comment: 411.2 Performed By: #### L 300.3900 ####[facility] [address] [place], [place], [phone](375) Prothrombin timeOrdered By: Kvng Crisostomo on 04-17-2024 PT Coag (PPP) [Time] 31.3 s High 11.7-14.9 [facility] Comment on above: Order Comment: 411.2 Performed By: #### L 300.3900 ####[facility] [address] [place], [place], [phone]) International normalized rat io (INR) calculationOrdered By: Kvng Crisostomo on 04-14-2024 INR Coag (Bld) [Relative time] 3.3 {INR} [facility] Prothrombin Time w/INRon INR Coag (PPP) [Relative time] 3.3 {INR} Normal [facility] Comment on above: Order Comment: 411.2 Performed By: #### L 300.3900 ####[facility] [address] [place], [place], [phone]) PT Coag (PPP) [Time] 33.2 s High 11.7-14.9 [facility] Comment on above: Order Comment: 411.2 Performed By: #### L 300.3900 ####[facility] [address] [place], [place], [phone]) Prothrombin timeOrdered By: Kvng Crisostomo on 04-14-2024 PT Coag (PPP) [Time] 33.2 s High 11.7-14.9 [facility] International normalized rat io (INR) calculationOrdered By: Kvng Crisostomo on 04-10-2024 INR Coag (Bld) [Relative time] 2.8 {INR} [facility] Prothrombin Time w/INRon INR Coag (PPP) [Relative time] 2.8 {INR} Normal [facility] Comment on above: Order Comment: 411.2 Performed By: #### L 300.3900 ####[facility] [address] [place], [address] PT Coag (PPP) [Time] 29.2 s High 11.7-14.9 [facility] Comment on above: Order Comment: 411.2 Performed By: #### L 300.3900 ####[facility] [address] [place], [address] Prothrombin timeOrdered By: Kvng Crissotomo on 04-10-2024 PT Coag (PPP) [Time] 29.2 s High 11.7-14.9 [facility] International normalized rat io (INR) calculationOrdered By: Carlos Cavazos on 04-07-2024 INR Coag (Bld) [Relative time] 2.7 {INR} [facility] Prothrombin Time w/INRon INR Coag (PPP) [Relative time] 2.7 {INR} Normal [facility] Comment on above: Order Comment: 411-2 Performed By: #### L 300.3900 ####[facility] [address] [place], [address] PT Coag (PPP) [Time] 28.1 s High 11.7-14.9 [facility] Comment on above: Order Comment: 411-2 Performed By: #### L 300.3900 ####[facility] [address] [place], [address] Prothrombin timeOrdered By: Carlos Cavazos on 04-07-2024 PT Coag (PPP) [Time] 28.1 s High 11.7-14.9 [facility] International normalized rat io (INR) calculationOrdered By: Kvng Crisostomo on 04-04-2024 INR Coag (Bld) [Relative time] 2.8 {INR} [facility] Prothrombin Time w/INRon INR Coag (PPP) [Relative time] 2.8 {INR} Normal [facility] Comment on above: Order Comment: 411.2 Performed By: #### L 300.3900 ####[facility] [address] [place], [address] PT Coag (PPP) [Time] 28.9 s High 11.7-14.9 [facility] Comment on above: Order Comment: 411.2 Performed By: #### L 300.3900 ####[facility] [address] [place], [address] Prothrombin timeOrdered By: Kvng Crisostomo on 04-04-2024 PT Coag (PPP) [Time] 28.9 s High 11.7-14.9 [facility] International normalized rat io (INR) calculationOrdered By: Carlos Cavazos on 03-31-2024 INR Coag (Bld) [Relative time] 2.6 {INR} [facility] Prothrombin Time w/INRon INR Coag (PPP) [Relative time] 2.6 {INR} Normal [facility] Comment on above: Order Comment: 411-2 Performed By: #### L 300.3900 ####[facility] [address] [place], [address] PT Coag (PPP) [Time] 27.3 s High 11.7-14.9 [facility] Comment on above: Order Comment: 411-2 Performed By: #### L 300.3900 ####[facility] [address] [place], [address] Prothrombin timeOrdered By: Carlos Cavazos on 03-31-2024 PT Coag (PPP) [Time] 27.3 s High 11.7-14.9 [facility] International normalized rat io (INR) calculationOrdered By: [employer] on 03-27-2024 INR Coag (Bld) [Relative time] 2.2 {INR} [facility] Prothrombin Time w/INRon INR Coag (PPP) [Relative time] 2.2 {INR} Normal [facility] Comment on above: Order Comment: 411.2 Performed By: #### L 300.3900 ####[facility] [address] [place], [address] PT Coag (PPP) [Time] 24.3 s High 11.7-14.9 [facility] Comment on above: Order Comment: 411.2 Performed By: #### L 300.3900 ####[facility] [address] [place], [address] Prothrombin timeOrdered By: [employer] on 03-27-2024 PT Coag (PPP) [Time] 24.3 s High 11.7-14.9 [facility] International normalized rat io (INR) calculationOrdered By: Kvng Crisostomo on 03-24-2024 INR Coag (Bld) [Relative time] 1.8 {INR} [facility] Prothrombin Time w/INRon INR Coag (PPP) [Relative time] 1.8 {INR} Normal [facility] Comment on above: Order Comment: 411.2 Performed By: #### L 300.3900 ####[facility] [address] [place], [address] PT Coag (PPP) [Time] 20.7 s High 11.7-14.9 [facility] Comment on above: Order Comment: 411.2 Performed By: #### L 300.3900 ####[facility] [address] [place], [address] Prothrombin timeOrdered By: Kvng Crisostomo on 03-24-2024 PT Coag (PPP) [Time] 20.7 s High 11.7-14.9 [facility] International normalized rat io (INR) calculationOrdered By: [employer] on 03-20-2024 INR Coag (Bld) [Relative time] 1.8 {INR} [facility] Prothrombin Time w/INRon INR Coag (PPP) [Relative time] 1.8 {INR} Normal [facility] Comment on above: Order Comment: 411.2 Performed By: #### L 300.3900 ####[facility] [address] [place], [address] PT Coag (PPP) [Time] 20.9 s High 11.7-14.9 [facility] Comment on above: Order Comment: 411.2 Performed By: #### L 300.3900 ####[facility] [address] [place], [address] Prothrombin timeOrdered By: [employer] on 03-20-2024 PT Coag (PPP) [Time] 20.9 s High 11.7-14.9 [facility] International normalized rat io (INR) calculationOrdered By: Kvng Crisostomo on 03-19-2024 INR Coag (Bld) [Relative time] 2.4 {INR} [facility] Prothrombin Time w/INRon INR Coag (PPP) [Relative time] 2.4 {INR} Normal [facility] Comment on above: Order Comment: 411.2 Performed By: #### L 300.3900 ####[facility] [address] [place], [address] PT Coag (PPP) [Time] 26.4 s High 11.7-14.9 [facility] Comment on above: Order Comment: 411.2 Performed By: #### L 300.3900 ####[facility] [address] [place], [address] Prothrombin timeOrdered By: Kvng Crisostomo on 03-19-2024 PT Coag (PPP) [Time] 26.4 s High 11.7-14.9 [facility] International normalized rat io (INR) calculationOrdered By: [employer] on 03-18-2024 INR Coag (Bld) [Relative time] 3.2 {INR} [facility] Prothrombin timeOrdered By: [employer] on 03-18-2024 PT Coag (PPP) [Time] 32.3 s High 11.7-14.9 [facility] International normalized rat io (INR) calculationOrdered By: [employer] on 03-17-2024 INR Coag (Bld) [Relative time] 3.6 {INR} [facility] Prothrombin timeOrdered By: [employer] on 03-17-2024 PT Coag (PPP) [Time] 35.7 s High 11.7-14.9 [facility] International normalized rat io (INR) calculationOrdered By: Carlos Cavazos on 03-14-2024 INR Coag (Bld) [Relative time] 3.5 {INR} [facility] Prothrombin timeOrdered By: Carlos Cavazos on 03-14-2024 PT Coag (PPP) [Time] 35.0 s High 11.7-14.9 [facility] International normalized rat io (INR) calculationOrdered By: [employer] on 03-13-2024 INR Coag (Bld) [Relative time] 3.2 {INR} [facility] Prothrombin timeOrdered By: [employer] on 03-13-2024 PT Coag (PPP) [Time] 32.2 s High 11.7-14.9 [facility] Office Visiton 09-13-2023 Follow-up visit [id number] GurpreetTamie 1950 [address] Provider Department Center 09/13/2023 [id number]-[id number] BUCK [facility] None Family History Problem Relation Age of Onset Heart disease Father Cancer Mother Family Status - Relation Status Age at Father Mother Level of Service:69646 [place] OFFICE/OUTPATIENT ESTABLISHED MOD MDM 30 MIN Reason for Visit and Comments: left flank pain [Other] - 8/10 pain when touched Normal [facility] Progress Noteon 09-13-2023 Progress Note Walt Moran [...] Hydrocephalus, adult (CMS/HCC) (HCC) Kidney 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 Normal [facility] CT ABDOMEN PELVIS WO IV CONT Kelly 09-07-2023 CT ABDOMEN PELVIS WO IV CONTRAST [facility] Name[facility] 1950 [id number] Exam Date/Time: 09/06/2023 18:14 Procedure: CT ABDOMEN [...] a kidney stone; pt has a hernia [place] [id number] 36 Lm on daughters vm t o advise them to call the number for the brand manager to get clarification, and to call back with further questions [place] [id number] 36 Yes, they will need to call the number given to them. [facility] 36 Please advise [address] 08-21-2023 36 Name of caller: Zion holt Contact phone number: [phone] Relationship to Patient: patient Provider: MD Quinn Practice: [facility] Chief Complaint/Reason for Call: Shanthi called [...] to reach out to call Maury Cedeño Rn Internship at [facility] [phone] to get clarifications. TEA did reach back out to [facility] and advised and provider Maury's #. Please advise Best time of day caller can be reached: Any Patient advised that office/PCP has 24-48 business hours to return their call: N/A Normal [facility] Laboratory - CoagulationOrde red By: Carlos Cavazos on 08-21-2023 INR Coag (Bld) [Relative time] 2.7 {INR} [facility] PT Coag (PPP) [Time] 28.9 s 11.7-14.9 [facility] Office Visiton 08-13-2023 Follow-up visit [id number] Tamie Sifuentes cheng R 1950 [address] Provider Department Center 08/13/2023 [id number] BUCK [facility] None Family History Problem Relation Age of Onset Heart disease Father Cancer Mother Family Status - Relation Status Age at Father Mother Level of Service:72909 [place] OFFICE/OUTPATIENT NEW MODERATE MDM 45 MINUTES Reason for Visit and Comments: New Patient [542] - Bilateral flank pain, hx of kidney stones Nephrolithiasis [272317] Normal [facility] Progress Noteon 08-13-2023 Progress Note Walt Moran [...] Hydrocephalus, adult (CMS/HCC) (HCC) 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 Normal [facility] No Panel InformationOrdered By: Carlos Cavazos on 08-03-2023 Levetiracetam (Keppra) Level 32.4 ug/mL 10.0-40.0 [facility] Comment on above: Performed at: [address] [id number] Director: Alpesh Vázquez MD, Phone: [phone] Basophil percentageOrdered B y: Carlos Cavazos on 07-20-2023 Chloride [Moles/Vol] 106 mmol/L 98-107 [facility] Glucose [Mass/Vol] 98 mg/dL 74-106 [facility] Hemoglobin (Bld) [Mass/Vol] 12.5 g/dL 13.0-16.5 [facility] Potassium [Moles/Vol] 4.3 mmol/L 3.5-5.1 [facility] Sodium [Moles/Vol] 135 mmol/L 136-145 [facility] WBC (Bld) [#/Vol] 13.0 10*3/uL 4.4-11.0 [facility] Determination of erythrocyte mean corpuscular volume (MCV)Ordered By: Carlos Cavazos on 07-20-2023 MCV (RBC) [Entitic vol] 86.2 fL 80-94 [facility] Erythrocyte distribution wid th ratioOrdered By: Carlos Cavazos on 07-20-2023 Erythrocyte distribution width (RBC) [Ratio] 15.3 % 11.6-14.6 [facility] Erythrocyte distribution wid th standard deviationOrdered By: Carlos Cavazos on 07-20-2023 Erythrocyte distribution width (RBC) [Entitic vol] 48.1 fL 35.1-43.9 [facility] Hematocrit Auto (Bld) [Volum e fraction]Ordered By: Carlos Cavazos on 07-20-2023 Hematocrit (Bld) [Volume fraction] 39.9 % 40-54 [facility] Laboratory - Chemistry and C hemistry - challengeOrdered By: Carlos Cavazos on 07-20-2023 CO2 [Moles/Vol] 24.0 mmol/L 21.0-32.0 [facility] Urea nitrogen/Creatinine [Mass ratio] 24.6 mg/mg 10-20 [facility] Laboratory - Hematology and Cell countsOrdered By: Carlos Cavazos on 07-20-2023 MCH (RBC) [Entitic mass] 27.0 pg 27.0-32.0 [facility] MCHC (RBC) [Mass/Vol] 31.3 g/dL 32-36 [facility] Platelet mean volume (Bld) [Entitic vol] 10.7 fL 6.2-12.0 [facility] Platelets (Bld) [#/Vol] 260 10*3/uL 150-450 [facility] No Panel InformationOrdered By: Carlos Cavazos on 07-20-2023 Estimated GFR (MDRD) Amer 114 mL/min >60 [facility] Comment on above: GFR Calc Estimated GFR (MDRD) Non-Af Amer 94 mL/min >60 [facility] Comment on above: Non- GFR Calc RBC Auto (Bld) [#/Vol]Ordere d By: Carlos Cavazos on 07-20-2023 RBC (Bld) [#/Vol] 4.63 10*6/uL 4.6-6.2 [facility] Serum or plasma calcium oral urement (mass/volume)Ordered By: Carlos Cavazos on 07-20-2023 Calcium [Mass/Vol] 8.6 mg/dL 8.5-10.1 [facility] Serum or plasma creatinine m easurement (mass/volume)Ordered By: Carlos Cavazos on 07-20-2023 Creatinine [Mass/Vol] 0.85 mg/dL 0.70-1.30 [facility] Comment on above: The validity of the calculated GFR & GFRAA in patients over 70 years has not been determined. Clinical correlation is essential. Serum or plasma urea nitroge n measurement (mass/volume)Ordered By: Carlos Cavazos on 07-20-2023 Urea nitrogen [Mass/Vol] 21 mg/dL 7-18 [facility] Thin prep Papanicolaou smear with manual screeningOrdered By: Carlos Cavazos on 07-20-2023 Thin prep Papanicolaou smear with manual screening 5 5-15 [facility] Basophil percentageOrdered B y: Carlos Cavazos on 07-18-2023 Chloride [Moles/Vol] 102 mmol/L 98-107 [facility] Glucose [Mass/Vol] 96 mg/dL 74-106 [facility] Hemoglobin (Bld) [Mass/Vol] 12.3 g/dL 13.0-16.5 [facility] Potassium [Moles/Vol] 4.2 mmol/L 3.5-5.1 [facility] Sodium [Moles/Vol] 136 mmol/L 136-145 [facility] WBC (Bld) [#/Vol] 14.7 10*3/uL 4.4-11.0 [facility] Determination of erythrocyte mean corpuscular volume (MCV)Ordered By: Carlos Cvaazos on 07-18-2023 MCV (RBC) [Entitic vol] 85.4 fL 80-94 [facility] Erythrocyte distribution wid th ratioOrdered By: Carlos Cavazos on 07-18-2023 Erythrocyte distribution width (RBC) [Ratio] 15.1 % 11.6-14.6 [facility] Erythrocyte distribution wid th standard deviationOrdered By: Carlos Cavazos on 07-18-2023 Erythrocyte distribution width (RBC) [Entitic vol] 47.3 fL 35.1-43.9 [facility] Hematocrit Auto (Bld) [Volum e fraction]Ordered By: Carlos Cavazos on 07-18-2023 Hematocrit (Bld) [Volume fraction] 39.3 % 40-54 [facility] Laboratory - Chemistry and C hemistry - challengeOrdered By: Carlos Cavazos on 07-18-2023 CO2 [Moles/Vol] 27.0 mmol/L 21.0-32.0 [facility] Urea nitrogen/Creatinine [Mass ratio] 24.4 mg/mg 10-20 [facility] Laboratory - Hematology and Cell countsOrdered By: Carlos Cavazos on 07-18-2023 MCH (RBC) [Entitic mass] 26.7 pg 27.0-32.0 [facility] MCHC (RBC) [Mass/Vol] 31.3 g/dL 32-36 [facility] Platelet mean volume (Bld) [Entitic vol] 10.3 fL 6.2-12.0 [facility] Platelets (Bld) [#/Vol] 288 10*3/uL 150-450 [facility] No Panel InformationOrdered By: Carlos Cavazos on 07-18-2023 Estimated GFR (MDRD) Amer 113 mL/min >60 [facility] Comment on above: GFR Calc Estimated GFR (MDRD) Non-Af Amer 93 mL/min >60 [facility] Comment on above: Non- GFR Calc RBC Auto (Bld) [#/Vol]Ordere d By: Carlos Cavazos on 07-18-2023 RBC (Bld) [#/Vol] 4.60 10*6/uL 4.6-6.2 [facility] Serum or plasma calcium oral urement (mass/volume)Ordered By: Carlos Cavazos on 07-18-2023 Calcium [Mass/Vol] 8.9 mg/dL 8.5-10.1 [facility] Serum or plasma creatinine m easurement (mass/volume)Ordered By: Carlos Cavazos on 07-18-2023 Creatinine [Mass/Vol] 0.86 mg/dL 0.70-1.30 [facility] Comment on above: The validity of the calculated GFR & GFRAA in patients over 70 years has not been determined. Clinical correlation is essential. Serum or plasma urea nitroge n measurement (mass/volume)Ordered By: Carlos Cavazos on 07-18-2023 Urea nitrogen [Mass/Vol] 21 mg/dL 7-18 [facility] Thin prep Papanicolaou smear with manual screeningOrdered By: Carlos Cavazos on 07-18-2023 Thin prep Papanicolaou smear with manual screening 7 5-15 [facility] Basophil percentageOrdered B y: Carlos Cavazos on 07-17-2023 Basophil percentage 0-5 SEEN /hpf 0-5 [facility] Bilirubin Test strip Ql (U)O rdered By: Carlos Cavazos on 07-17-2023 Bilirubin Ql (U) Negative Negative [facility] Calcium oxalate crystals det ection in urine sediment by light microscopyOrdered By: Carlos Cavazos on 07-17-2023 Calcium oxalate crystals LM Ql (Urine sed) 1+ /hpf [facility] Culture, urineOrdered By: Sharif Crouch on 07-17-2023 Bacteria identified Cx Nom (U) Positive [facility] Ketones Test strip Ql (U)Ord ered By: Carlos Cavazos on 07-17-2023 Ketones Ql (U) Negative Negative [facility] Mucus LM Ql (Urine sed)Order ed By: Carlos Cavazos on 07-17-2023 Mucus Ql (Urine sed) 0 SEEN /hpf [facility] Nitrite Test strip Ql (U)Ord ered By: Carlos Cavazos on 07-17-2023 Nitrite Ql (U) Negative Negative [facility] No Panel InformationOrdered By: Carlos Cavazos on 07-17-2023 Urine RBC 0 SEEN /hpf 0-5 [facility] Protein Test strip Ql (U)Ord ered By: Carlos Cavazos on 07-17-2023 Protein Ql (U) Negative Negative [facility] Squamous epithelial cells de tection in urine sediment by light microscopyOrdered By: Carlos Cavazos on 07-17-2023 Epithelial cells.squamous LM Ql (Urine sed) 0-5 SEEN /hpf 0-5 [facility] Urine blood detectionOrdered By: Carlos Cavazos on 07-17-2023 RBC Ql (U) Negative Negative [facility] Urine clarityOrdered By: Ted Cavazos on 07-17-2023 Clarity (U) Clear Clear [facility] Urine color determinationOrd ered By: Carlos Cavaozs on 07-17-2023 Color (U) Yellow Yellow [facility] Urine glucose detectionOrder ed By: Carlos Cavazos on 07-17-2023 Glucose Ql (U) Normal mg/dl Normal [facility] Urine leukocyte esterase det ection by dipstickOrdered By: Carlos Cavazos on 07-17-2023 Leukocyte esterase Test strip Ql (U) 25 /ul Negative [facility] Urine pHOrdered By: Carlos flores on 07-17-2023 pH (U) 6.0 [pH] 5.0 - 8.0 [facility] Urine sediment bacteria coun t by microscopy (number/high power field)Ordered By: Carlos Cavazos on 07-17-2023 Bacteria LM.HPF (Urine sed) [#/Area] 0 /[HPF] None Seen [facility] Urine specific gravity measu rementOrdered By: Carlos Cavazos on 07-17-2023 Specific gravity (U) [Rel density] 1.020 1.002-1.030 [facility] Urine urobilinogen measureme ntOrdered By: Carlos Cavazos on 07-17-2023 Urobilinogen Ql (U) Normal mg/dl Normal [facility] Absolute lymphocyte countOrd ered By: Carlos Cavazos on 07-16-2023 Lymphocytes Auto (Unsp spec) [#/Vol] 6.02 10*3/uL 0.83-4.51 [facility] Automated lymphocyte count a s percentage of total leukocytesOrdered By: Carlos Cavazos on 07-16-2023 Lymphocytes/100 WBC Auto (Unsp spec) 49.1 % 19-41 [facility] Basophil percentageOrdered B y: Carlos Cavazos on 07-16-2023 Basophils/100 WBC (Bld) 0.6 % 0-1 [facility] Chloride [Moles/Vol] 105 mmol/L 98-107 [facility] Eosinophils/100 WBC (Bld) 2.0 % 0-5 [facility] Glucose [Mass/Vol] 93 mg/dL 74-106 [facility] Hemoglobin (Bld) [Mass/Vol] 12.1 g/dL 13.0-16.5 [facility] Monocytes/100 WBC (Bld) 5.3 % 0-10 [facility] Neutrophils (Bld) [#/Vol] 5.2 10*3/uL 2.0-7.7 [facility] Neutrophils/100 WBC (Bld) 42.8 % 47-70 [facility] Potassium [Moles/Vol] 4.3 mmol/L 3.5-5.1 [facility] Sodium [Moles/Vol] 138 mmol/L 136-145 [facility] WBC (Bld) [#/Vol] 12.3 10*3/uL 4.4-11.0 [facility] Blood manual differential co mment interpretation (narrative result)Ordered By: Carlos Cavazos on 07-16-2023 Manual differential comment Shemar (Bld) [Interp] SCANNED [facility] Determination of erythrocyte mean corpuscular volume (MCV)Ordered By: Carlos Cavazos on 07-16-2023 MCV (RBC) [Entitic vol] 86.8 fL 80-94 [facility] Erythrocyte distribution wid th ratioOrdered By: Carlos Cavazos on 07-16-2023 Erythrocyte distribution width (RBC) [Ratio] 15.3 % 11.6-14.6 [facility] Erythrocyte distribution wid th standard deviationOrdered By: Carlos Cavazos on 07-16-2023 Erythrocyte distribution width (RBC) [Entitic vol] 48.9 fL 35.1-43.9 [facility] Hematocrit Auto (Bld) [Volum e fraction]Ordered By: Carlos Cavazos on 07-16-2023 Hematocrit (Bld) [Volume fraction] 38.7 % 40-54 [facility] Immature granulocytes/100 WB C Auto (Bld)Ordered By: Carlos Cavazos on 07-16-2023 Immature granulocytes/100 WBC (Bld) 0.200 % 0.0-0.9 [facility] Comment on above: IG% - Immature Granu locytes (promyelocytes, myelocytes and metamyelocytes) > 1% indicates that a LEFT SHIFT is Present. Laboratory - Chemistry and C hemistry - challengeOrdered By: Carlos Cavazos on 07-16-2023 CO2 [Moles/Vol] 25.0 mmol/L 21.0-32.0 [facility] Urea nitrogen/Creatinine [Mass ratio] 21.0 mg/mg 10-20 [facility] Laboratory - CoagulationOrde red By: Carlos Cavazos on 07-16-2023 INR Coag (Bld) [Relative time] 2.4 {INR} [facility] PT Coag (PPP) [Time] 25.7 s 11.7-14.9 [facility] Laboratory - Hematology and Cell countsOrdered By: Carlos Cavazos on 07-16-2023 MCH (RBC) [Entitic mass] 27.1 pg 27.0-32.0 [facility] MCHC (RBC) [Mass/Vol] 31.3 g/dL 32-36 [facility] Nucleated RBC/100 WBC (Bld) [Ratio] 0 % 0-5 [facility] Platelet mean volume (Bld) [Entitic vol] 10.5 fL 6.2-12.0 [facility] Platelets (Bld) [#/Vol] 289 10*3/uL 150-450 [facility] No Panel InformationOrdered By: Carlos Cavazos on 07-16-2023 Estimated GFR (MDRD) Amer 106 mL/min >60 [facility] Comment on above: GFR Calc Estimated GFR (MDRD) Non-Af Amer 88 mL/min >60 [facility] Comment on above: Non- GFR Calc Reactive Lymphocytes 1+ [facility] RBC Auto (Bld) [#/Vol]Ordere d By: Carlos Cavazos on 07-16-2023 RBC (Bld) [#/Vol] 4.46 10*6/uL 4.6-6.2 [facility] Serum or plasma calcium oral urement (mass/volume)Ordered By: Carlos Cavazos on 07-16-2023 Calcium [Mass/Vol] 9.0 mg/dL 8.5-10.1 [facility] Serum or plasma creatinine m easurement (mass/volume)Ordered By: Carlos Cavazos on 07-16-2023 Creatinine [Mass/Vol] 0.90 mg/dL 0.70-1.30 [facility] Comment on above: The validity of the calculated GFR & GFRAA in patients over 70 years has not been determined. Clinical correlation is essential. Serum or plasma urea nitroge n measurement (mass/volume)Ordered By: Carlos Cavazos on 07-16-2023 Urea nitrogen [Mass/Vol] 19 mg/dL 7-18 [facility] Thin prep Papanicolaou smear with manual screeningOrdered By: Carlos Cavazos on 07-16-2023 Thin prep Papanicolaou smear with manual screening 8 5-15 [facility] Absolute lymphocyte countOrd ered By: Carlos Cavazos on 07-13-2023 Lymphocytes Auto (Unsp spec) [#/Vol] 5.44 10*3/uL 0.83-4.51 [facility] Automated lymphocyte count a s percentage of total leukocytesOrdered By: Carlos Cavazos on 07-13-2023 Lymphocytes/100 WBC Auto (Unsp spec) 47.3 % 19-41 [facility] Basophil percentageOrdered B y: Carlos Cavazos on 07-13-2023 Basophils/100 WBC (Bld) 0.4 % 0-1 [facility] Chloride [Moles/Vol] 107 mmol/L 98-107 [facility] Eosinophils/100 WBC (Bld) 1.7 % 0-5 [facility] Glucose [Mass/Vol] 96 mg/dL 74-106 [facility] Hemoglobin (Bld) [Mass/Vol] 13.5 g/dL 13.0-16.5 [facility] Monocytes/100 WBC (Bld) 4.3 % 0-10 [facility] Neutrophils (Bld) [#/Vol] 5.3 10*3/uL 2.0-7.7 [facility] Neutrophils/100 WBC (Bld) 46.0 % 47-70 [facility] Potassium [Moles/Vol] 4.0 mmol/L 3.5-5.1 [facility] Sodium [Moles/Vol] 139 mmol/L 136-145 [facility] WBC (Bld) [#/Vol] 11.5 10*3/uL 4.4-11.0 [facility] Determination of erythrocyte mean corpuscular volume (MCV)Ordered By: Carlos Cavazos on 07-13-2023 MCV (RBC) [Entitic vol] 86.1 fL 80-94 [facility] Erythrocyte distribution wid th ratioOrdered By: Carlos Cavazos on 07-13-2023 Erythrocyte distribution width (RBC) [Ratio] 15.2 % 11.6-14.6 [facility] Erythrocyte distribution wid th standard deviationOrdered By: Carlos Cavazos on 07-13-2023 Erythrocyte distribution width (RBC) [Entitic vol] 48.0 fL 35.1-43.9 [facility] Hematocrit Auto (Bld) [Volum e fraction]Ordered By: Carlos Cavazos on 07-13-2023 Hematocrit (Bld) [Volume fraction] 42.2 % 40-54 [facility] Immature granulocytes/100 WB C Auto (Bld)Ordered By: Carlos Cavazos on 07-13-2023 Immature granulocytes/100 WBC (Bld) 0.300 % 0.0-0.9 [facility] Comment on above: IG% - Immature Granu locytes (promyelocytes, myelocytes and metamyelocytes) > 1% indicates that a LEFT SHIFT is Present. Laboratory - Chemistry and C hemistry - challengeOrdered By: Carlos Cavazos on 07-13-2023 CO2 [Moles/Vol] 26.0 mmol/L 21.0-32.0 [facility] Urea nitrogen/Creatinine [Mass ratio] 21.8 mg/mg 10-20 [facility] Laboratory - Hematology and Cell countsOrdered By: Carlos Cavazos on 07-13-2023 MCH (RBC) [Entitic mass] 27.6 pg 27.0-32.0 [facility] MCHC (RBC) [Mass/Vol] 32.0 g/dL 32-36 [facility] Nucleated RBC/100 WBC (Bld) [Ratio] 0 % 0-5 [facility] Platelet mean volume (Bld) [Entitic vol] 10.1 fL 6.2-12.0 [facility] Platelets (Bld) [#/Vol] 279 10*3/uL 150-450 [facility] No Panel InformationOrdered By: Carlos Cavazos on 07-13-2023 Estimated GFR (MDRD) Amer 118 mL/min >60 [facility] Comment on above: GFR Calc Estimated GFR (MDRD) Non-Af Amer 98 mL/min >60 [facility] Comment on above: Non- GFR Calc Levetiracetam (Keppra) Level 25.5 ug/mL 10.0-40.0 [facility] Comment on above: Performed at: [address] [id number] Director: Alpehs Vázquez MD, Phone: [phone] RBC Auto (Bld) [#/Vol]Ordere d By: Carlos Cavazos on 07-13-2023 RBC (Bld) [#/Vol] 4.90 10*6/uL 4.6-6.2 [facility] Serum or plasma calcium oral urement (mass/volume)Ordered By: Carlos Cavazos on 07-13-2023 Calcium [Mass/Vol] 9.1 mg/dL 8.5-10.1 [facility] Serum or plasma creatinine m easurement (mass/volume)Ordered By: Carlos Cavazos on 07-13-2023 Creatinine [Mass/Vol] 0.82 mg/dL 0.70-1.30 [facility] Comment on above: The validity of the calculated GFR & GFRAA in patients over 70 years has not been determined. Clinical correlation is essential. Serum or plasma urea nitroge n measurement (mass/volume)Ordered By: Carlos Cavazos on 07-13-2023 Urea nitrogen [Mass/Vol] 18 mg/dL 7-18 [facility] Thin prep Papanicolaou smear with manual screeningOrdered By: Carlos Cavazos on 07-13-2023 Thin prep Papanicolaou smear with manual screening 6 5-15 [facility] No Panel InformationOrdered By: Carlos Cavazos on 07-12-2023 Valproic Acid (Depakene) Level < 3 ug/mL 50-100 [facility] Laboratory - CoagulationOrde red By: Carlos Cavazos on 07-05-2023 INR Coag (Bld) [Relative time] 2.4 {INR} [facility] PT Coag (PPP) [Time] 26.3 s 11.7-14.9 [facility] Laboratory - CoagulationOrde red By: Carlos Cavazos on 07-02-2023 INR Coag (Bld) [Relative time] 1.5 {INR} [facility] PT Coag (PPP) [Time] 18.5 s 11.7-14.9 [facility] Laboratory - CoagulationOrde red By: Carlos Cavazos on 06-28-2023 INR Coag (Bld) [Relative time] 1.7 {INR} [facility] PT Coag (PPP) [Time] 20.5 s 11.7-14.9 [facility] 36on 06-25-2023 36 [facility] called in stating appt scheduled 07/10/23 [place] has to be made further out, pt being transported by cot. Changed appt to 08/13/23 per [facility] only avail time for transport, first avail with DR Buck at 10:[address] [facility] Laboratory - CoagulationOrde red By: Carlos Cavazos on 06-25-2023 INR Coag (Bld) [Relative time] 3.8 {INR} [facility] PT Coag (PPP) [Time] 38.2 s 11.7-14.9 [facility] Laboratory - CoagulationOrde red By: Carlos Cavazos on 06-21-2023 INR Coag (Bld) [Relative time] 3.2 {INR} [facility] PT Coag (PPP) [Time] 32.9 s 11.7-14.9 [facility] No Panel InformationOrdered By: Carlos Cavazos on 06-13-2023 Valproic Acid (Depakene) Level < 3 ug/mL 50-100 [facility] Laboratory - CoagulationOrde red By: Carlos Cavazos on 06-06-2023 PT Coag (PPP) [Time] 30.5 s 11.7-14.9 [facility] Platelet poor plasma interna tional normalized ratio (INR)Ordered By: Carlos Cavazos on 06-06-2023 INR Coag (PPP) [Relative time] 2.9 {INR} [facility] International normalized rat io (INR) calculationOrdered By: Carlos Cavazos on 05-23-2023 INR Coag (PPP) [Relative time] 2.6 {INR} [facility] Laboratory - CoagulationOrde red By: Carlos Cavazos on 05-23-2023 PT Coag (PPP) [Time] 27.7 s 11.7-14.9 [facility] Laboratory - CoagulationOrde red By: Carlos Cavazos on 05-09-2023 PT Coag (PPP) [Time] 24.1 s 11.7-14.9 [facility] Whole blood international no rmalized ratio (INR)Ordered By: Carlos Cavazos on 05-09-2023 INR Coag (Bld) [Relative time] 2.1 {INR} [facility] Laboratory - CoagulationOrde red By: Carlos Cavazos on 04-23-2023 PT Coag (PPP) [Time] 26.4 s 11.7-14.9 [facility] Whole blood international no rmalized ratio (INR)Ordered By: Carlos Cavazos on 04-23-2023 INR Coag (Bld) [Relative time] 2.4 {INR} [facility] INR in Blood by Coagulation assayOrdered By: Carlos Cavazos on 04-09-2023 INR Coag (Bld) [Relative time] 2.1 {INR} [facility] Laboratory - CoagulationOrde red By: Carlos Cavazos on 04-09-2023 PT Coag (PPP) [Time] 23.9 s 11.7-14.9 [facility] INR in Blood by Coagulation assayOrdered By: Carlos Cavazos on 04-02-2023 INR Coag (Bld) [Relative time] 2.2 {INR} [facility] Laboratory - CoagulationOrde red By: Carlos Cavazos on 04-02-2023 PT Coag (PPP) [Time] 24.5 s 11.7-14.9 [facility] INR in Blood by Coagulation assayOrdered By: Carlos Cavazos on 03-26-2023 INR Coag (Bld) [Relative time] 1.7 {INR} [facility] Laboratory - CoagulationOrde red By: Carlos Cavazos on 03-26-2023 PT Coag (PPP) [Time] 19.9 s 11.7-14.9 [facility] INR in Blood by Coagulation assayOrdered By: Carlos Cavazos on 03-22-2023 INR Coag (Bld) [Relative time] 1.3 {INR} [facility] Laboratory - CoagulationOrde red By: Carlos Cavazos on 03-22-2023 PT Coag (PPP) [Time] 16.4 s 11.7-14.9 [facility] INR in Blood by Coagulation assayOrdered By: Carlos Cavazos on 03-08-2023 INR Coag (Bld) [Relative time] 2.0 {INR} [facility] Laboratory - CoagulationOrde red By: Carlos Cavazos on 03-08-2023 PT Coag (PPP) [Time] 22.5 s 11.7-14.9 [facility] Laboratory - CoagulationOrde red By: Carlos Cavazos on 02-22-2023 INR Coag (Bld) [Relative time] 2.2 {INR} [facility] Comment on above: Critical Value > 4.0 Whole blood prothrombin time Ordered By: Carlos Cavazos on 02-22-2023 PT Coag (Bld) [Time] 24.0 s 11.7-14.9 [facility] INR in Blood by Coagulation assayOrdered By: Cliff Bruner on 02-15-2023 INR Coag (Bld) [Relative time] 2.0 {INR} [facility] Laboratory - CoagulationOrde red By: Cliff Bruner on 02-15-2023 PT Coag (PPP) [Time] 22.8 s 11.7-14.9 [facility] INR in Blood by Coagulation assayOrdered By: Carlos Cavazos on 02-08-2023 INR Coag (Bld) [Relative time] 2.1 {INR} [facility] Laboratory - CoagulationOrde red By: Carlos Cavazos on 02-08-2023 PT Coag (PPP) [Time] 23.5 s 11.7-14.9 [facility] INR in Blood by Coagulation assayOrdered By: Carlos Cavazos on 01-31-2023 INR Coag (Bld) [Relative time] 2.0 {INR} [facility] Laboratory - CoagulationOrde red By: Carlos Cavazos on 01-31-2023 PT Coag (PPP) [Time] 22.4 s 11.7-14.9 [facility] Laboratory - CoagulationOrde red By: Carlos Cavazos on 01-29-2023 INR Coag (Bld) [Relative time] 1.8 {INR} [facility] Comment on above: Critical Value > 4.0 Whole blood prothrombin time Ordered By: Carlos Cavazos on 01-29-2023 PT Coag (Bld) [Time] 19.9 s 11.7-14.9 [facility] INR in Blood by Coagulation assayOrdered By: Carlos Cavazos on 01-26-2023 INR Coag (Bld) [Relative time] 1.5 {INR} [facility] Laboratory - CoagulationOrde red By: Carlos Cavazos on 01-26-2023 PT Coag (PPP) [Time] 18.3 s 11.7-14.9 [facility] INR in Blood by Coagulation assayOrdered By: Carlos Cavazos on 01-24-2023 INR Coag (Bld) [Relative time] 1.3 {INR} [facility] Laboratory - CoagulationOrde red By: Carlos Cavazos on 01-24-2023 PT Coag (PPP) [Time] 16.2 s 11.7-14.9 [facility] Basophil percentageOrdered B y: Carlos Cavazos on 01-22-2023 Basophil percentage 0 SEEN /hpf 0-5 [facility] Bilirubin Test strip Ql (U)O rdered By: Carlos Cavazos on 01-22-2023 Bilirubin Ql (U) Negative Negative [facility] Calcium oxalate crystals det ection in urine sediment by light microscopyOrdered By: Carlos Cavazos on 01-22-2023 Calcium oxalate crystals LM Ql (Urine sed) 1+ /hpf [facility] Culture, urineOrdered By: Sharif Crouch on 01-22-2023 Bacteria identified Cx Nom (U) Positive [facility] Ketones Test strip Ql (U)Ord ered By: Carlos Cavazos on 01-22-2023 Ketones Ql (U) Negative Negative [facility] Mucus LM Ql (Urine sed)Order ed By: Carlos Cavazos on 01-22-2023 Mucus Ql (Urine sed) 1+ /hpf [facility] Nitrite Test strip Ql (U)Ord ered By: Carlos Cavazos on 01-22-2023 Nitrite Ql (U) Negative Negative [facility] Protein Test strip Ql (U)Ord ered By: Carlos Cavazos on 01-22-2023 Protein Ql (U) Negative Negative [facility] Squamous epithelial cells de tection in urine sediment by light microscopyOrdered By: Carlos Cavazos on 01-22-2023 Epithelial cells.squamous LM Ql (Urine sed) 0 SEEN /hpf 0-5 [facility] Urine blood detectionOrdered By: Carlos Cavazos on 01-22-2023 RBC Ql (U) Negative Negative [facility] RBC Ql (U) 0 SEEN /hpf 0-5 [facility] Urine clarityOrdered By: Ted Cavazos on 01-22-2023 Clarity (U) Sl. Cloudy Clear [facility] Urine color determinationOrd ered By: Carlos Cavazos on 01-22-2023 Color (U) Yellow Yellow [facility] Urine glucose detectionOrder ed By: Carlos Cavazos on 01-22-2023 Glucose Ql (U) Normal mg/dl Normal [facility] Urine leukocyte esterase det ection by dipstickOrdered By: Carlos Cavazos on 01-22-2023 Leukocyte esterase Test strip Ql (U) Negative Negative [facility] Urine pHOrdered By: Carlos flores on 01-22-2023 pH (U) 5.0 [pH] 5.0 - 8.0 [facility] Urine sediment bacteria coun t by microscopy (number/high power field)Ordered By: Carlos Cavazos on 01-22-2023 Bacteria LM.HPF (Urine sed) [#/Area] 2 /[HPF] None Seen [facility] Urine specific gravity measu rementOrdered By: Carlos Cavazos on 01-22-2023 Specific gravity (U) [Rel density] 1.025 1.002-1.030 [facility] Urobilinogen Auto test strip Ql (U)Ordered By: Carlos Cavazos on 01-22-2023 Urobilinogen Ql (U) Normal mg/dl Normal [facility] INR in Blood by Coagulation assayOrdered By: Carlos Cavazos on 01-10-2023 INR Coag (Bld) [Relative time] 2.0 {INR} [facility] Laboratory - CoagulationOrde red By: Carlos Cavazos on 01-10-2023 PT Coag (PPP) [Time] 22.6 s 11.7-14.9 [facility] INR in Blood by Coagulation assayOrdered By: Carlos Cavazos on 12-27-2022 INR Coag (Bld) [Relative time] 2.1 {INR} [facility] Laboratory - CoagulationOrde red By: Carlos Cavazos on 12-27-2022 PT Coag (PPP) [Time] 24.1 s 11.7-14.9 [facility] INR in Blood by Coagulation assayOrdered By: Carlos Cavazos on 12-21-2022 INR Coag (Bld) [Relative time] 2.4 {INR} [facility] Laboratory - CoagulationOrde red By: Carlos Cavazos on 12-21-2022 PT Coag (PPP) [Time] 26.7 s 11.7-14.9 [facility] Laboratory - CoagulationOrde red By: Carlos Cavazos on 12-14-2022 INR Coag (Bld) [Relative time] 2.3 {INR} [facility] Comment on above: Critical Value > 4.0 Whole blood prothrombin time Ordered By: Carlos Cavazos on 12-14-2022 PT Coag (Bld) [Time] 25.2 s 11.7-14.9 [facility] Laboratory - CoagulationOrde red By: Carlos Cavazos on 12-07-2022 INR Coag (Bld) [Relative time] 2.5 {INR} [facility] Comment on above: Critical Value > 4.0 Whole blood prothrombin time Ordered By: Carlos Cavazos on 12-07-2022 PT Coag (Bld) [Time] 26.9 s 11.7-14.9 [facility] Amorphous sediment detection in urine sediment by light microscopyOrdered By: Carlos Cavazos on 11-24-2022 Amorphous sediment LM Ql (Urine sed) 1+ [facility] Basophil percentageOrdered B y: Carlos Cavazos on 11-24-2022 Basophil percentage 0 SEEN /hpf 0-5 [facility] Bilirubin [Mass/Vol] 0.30 mg/dL 0.20-1.00 [facility] Comment on above: For patients on eltr ombopag therapy, use of Dimension [place] TBIL is not recommended. Chloride [Moles/Vol] 107 mmol/L 98-107 [facility] Glucose [Mass/Vol] 95 mg/dL 74-106 [facility] Potassium [Moles/Vol] 4.2 mmol/L 3.5-5.1 [facility] Protein [Mass/Vol] 6.9 g/dL 6.4-8.2 [facility] Sodium [Moles/Vol] 138 mmol/L 136-145 [facility] WBC (Bld) [#/Vol] 10.4 10*3/uL 4.4-11.0 [facility] Bilirubin Test strip Ql (U)O rdered By: Carlos Cavazos on 11-24-2022 Bilirubin Ql (U) Negative Negative [facility] Blood erythrocytes count (nu mber/volume)Ordered By: Carlos Cavazos on 11-24-2022 RBC (Bld) [#/Vol] 4.44 10*6/uL 4.6-6.2 [facility] Blood hemoglobin measurement (mass/volume)Ordered By: Carlos Cavazos on 11-24-2022 Hemoglobin (Bld) [Mass/Vol] 11.8 g/dL 13.0-16.5 [facility] Blood platelet mean volumeOr dered By: Carlos Cavazos on 11-24-2022 Platelet mean volume (Bld) [Entitic vol] 9.7 fL 6.2-12.0 [facility] Calcium oxalate crystals det ection in urine sediment by light microscopyOrdered By: Carlos Cavazos on 11-24-2022 Calcium oxalate crystals LM Ql (Urine sed) RARE /hpf [facility] Culture, urineOrdered By: Sharif Crouch on 11-24-2022 Bacteria identified Cx Nom (U) Positive [facility] Determination of erythrocyte mean corpuscular volume (MCV)Ordered By: Carlos Cavazos on 11-24-2022 MCV (RBC) [Entitic vol] 84.7 fL 80-94 [facility] Hematocrit Auto (Bld) [Volum e fraction]Ordered By: Carlos Cavazos on 11-24-2022 Hematocrit (Bld) [Volume fraction] 37.6 % 40-54 [facility] Ketones Test strip Ql (U)Ord ered By: Carlos Cavazos on 11-24-2022 Ketones Ql (U) Negative Negative [facility] Laboratory - Chemistry and C hemistry - challengeOrdered By: Carlos Cavazos on 11-24-2022 ALP [Catalytic activity/Vol] 103 U/L 45-117 [facility] ALT [Catalytic activity/Vol] 14 U/L 16-61 [facility] CO2 [Moles/Vol] 26.0 mmol/L 21.0-32.0 [facility] Globulin (S) [Mass/Vol] 4.0 g/dL 2.2-4.2 [facility] Urea nitrogen/Creatinine [Mass ratio] 24.1 mg/mg 10-20 [facility] Laboratory - Hematology and Cell countsOrdered By: Carlos Cavazos on 11-24-2022 Erythrocyte distribution width (RBC) [Entitic vol] 49.4 fL 35.1-43.9 [facility] Erythrocyte distribution width (RBC) [Ratio] 16.0 % 11.6-14.6 [facility] MCH (RBC) [Entitic mass] 26.6 pg 27.0-32.0 [facility] MCHC Auto (RBC) [Mass/Vol]Or dered By: Carlos Cavazos on 11-24-2022 MCHC (RBC) [Mass/Vol] 31.4 g/dL 32-36 [facility] Mucus LM Ql (Urine sed)Order ed By: Carlos Cavazos on 11-24-2022 Mucus Ql (Urine sed) 0 SEEN /hpf [facility] Nitrite Test strip Ql (U)Ord ered By: Carlos Cavazos on 11-24-2022 Nitrite Ql (U) Negative Negative [facility] No Panel InformationOrdered By: Carlos Cavazos on 11-24-2022 Estimated GFR (MDRD) Amer 118 mL/min >60 [facility] Comment on above: GFR Calc Estimated GFR (MDRD) Non-Af Amer 97 mL/min >60 [facility] Comment on above: Non- GFR Calc Platelets bldOrdered By: Ted Cavazos on 11-24-2022 Platelets (Bld) [#/Vol] 309 10*3/uL 150-450 [facility] Protein Test strip Ql (U)Ord ered By: Carlos Cavazos on 11-24-2022 Protein Ql (U) Negative Negative [facility] Serum or plasma albumin oral urement (mass/volume)Ordered By: Carlos Cavazos on 11-24-2022 Albumin [Mass/Vol] 2.9 g/dL 3.2-5.0 [facility] Serum or plasma albumin/glob ulin mass ratioOrdered By: Carlos Cavazos on 11-24-2022 Albumin/Globulin [Mass ratio] 0.7 {ratio} 0.9-2.4 [facility] Serum or plasma calcium oral urement (mass/volume)Ordered By: Carlos Cavazos on 11-24-2022 Calcium [Mass/Vol] 8.7 mg/dL 8.5-10.1 [facility] Serum or plasma creatinine m easurement (mass/volume)Ordered By: Carlos Cavazos on 11-24-2022 Creatinine [Mass/Vol] 0.83 mg/dL 0.70-1.30 [facility] Comment on above: The validity of the calculated GFR & GFRAA in patients over 70 years has not been determined. Clinical correlation is essential. Serum or plasma urea nitroge n measurement (mass/volume)Ordered By: Carlos Cavazos on 11-24-2022 Urea nitrogen [Mass/Vol] 20 mg/dL 7-18 [facility] Squamous epithelial cells de tection in urine sediment by light microscopyOrdered By: Carlos Cavazos on 11-24-2022 Epithelial cells.squamous LM Ql (Urine sed) 0 SEEN /hpf 0-5 [facility] Thin prep Papanicolaou smear with manual screeningOrdered By: Carlos Cavazos on 11-24-2022 Thin prep Papanicolaou smear with manual screening 10 U/L 15-37 [facility] Thin prep Papanicolaou smear with manual screening 5 5-15 [facility] Urine blood detectionOrdered By: Carlos Cavazos on 11-24-2022 RBC Ql (U) Negative Negative [facility] RBC Ql (U) 0 SEEN /hpf 0-5 [facility] Urine clarityOrdered By: Ted Cavazos on 11-24-2022 Clarity (U) Clear Clear [facility] Urine color determinationOrd ered By: Carlos Cavzaos on 11-24-2022 Color (U) Yellow Yellow [facility] Urine glucose detectionOrder ed By: Carlos Cavazos on 11-24-2022 Glucose Ql (U) Normal mg/dl Normal [facility] Urine leukocyte esterase det ection by dipstickOrdered By: Carlos Cavazos on 11-24-2022 Leukocyte esterase Test strip Ql (U) Negative Negative [facility] Urine pHOrdered By: Carlos flores on 11-24-2022 pH (U) 7.0 [pH] 5.0 - 8.0 [facility] Urine sediment bacteria coun t by microscopy (number/high power field)Ordered By: Carlos Cavazos on 11-24-2022 Bacteria LM.HPF (Urine sed) [#/Area] 0 /[HPF] None Seen [facility] Urine specific gravity measu rementOrdered By: Carlos Cavazos on 11-24-2022 Specific gravity (U) [Rel density] 1.010 1.002-1.030 [facility] Urobilinogen Auto test strip Ql (U)Ordered By: Carlos Cavazos on 11-24-2022 Urobilinogen Ql (U) Normal mg/dl Normal [facility] Laboratory - CoagulationOrde red By: Carlos Cavazos on 11-23-2022 INR Coag (Bld) [Relative time] 2.2 {INR} [facility] Comment on above: Critical Value > 4.0 Whole blood prothrombin time Ordered By: Carlos Cavazos on 11-23-2022 PT Coag (Bld) [Time] 24.5 s 11.7-14.9 [facility] Basophil percentageOrdered B y: Carlos Cavazos on 11-22-2022 Chloride [Moles/Vol] 105 mmol/L 98-107 [facility] Glucose [Mass/Vol] 91 mg/dL 74-106 [facility] Potassium [Moles/Vol] 4.1 mmol/L 3.5-5.1 [facility] Sodium [Moles/Vol] 138 mmol/L 136-145 [facility] WBC (Bld) [#/Vol] 12.0 10*3/uL 4.4-11.0 [facility] Blood erythrocytes count (nu mber/volume)Ordered By: Carlos Cavazos on 11-22-2022 RBC (Bld) [#/Vol] 4.65 10*6/uL 4.6-6.2 [facility] Blood hemoglobin measurement (mass/volume)Ordered By: Carlos Cavazos on 11-22-2022 Hemoglobin (Bld) [Mass/Vol] 12.4 g/dL 13.0-16.5 [facility] Blood platelet mean volumeOr dered By: Carlos Cavazos on 11-22-2022 Platelet mean volume (Bld) [Entitic vol] 10.3 fL 6.2-12.0 [facility] Determination of erythrocyte mean corpuscular volume (MCV)Ordered By: Carlos Cavazos on 11-22-2022 MCV (RBC) [Entitic vol] 86.0 fL 80-94 [facility] Hematocrit Auto (Bld) [Volum e fraction]Ordered By: Carlos Cavazos on 11-22-2022 Hematocrit (Bld) [Volume fraction] 40.0 % 40-54 [facility] Laboratory - Chemistry and C hemistry - challengeOrdered By: Carlos Cavazos on 11-22-2022 CO2 [Moles/Vol] 25.0 mmol/L 21.0-32.0 [facility] Urea nitrogen/Creatinine [Mass ratio] 23.6 mg/mg 10-20 [facility] Laboratory - Hematology and Cell countsOrdered By: Carlos Cavazos on 11-22-2022 Erythrocyte distribution width (RBC) [Entitic vol] 50.0 fL 35.1-43.9 [facility] Erythrocyte distribution width (RBC) [Ratio] 15.9 % 11.6-14.6 [facility] MCH (RBC) [Entitic mass] 26.7 pg 27.0-32.0 [facility] MCHC Auto (RBC) [Mass/Vol]Or dered By: Carlos Cavazos on 11-22-2022 MCHC (RBC) [Mass/Vol] 31.0 g/dL 32-36 [facility] No Panel InformationOrdered By: Carlos Cavazos on 11-22-2022 Estimated GFR (MDRD) Amer 115 mL/min >60 [facility] Comment on above: GFR Calc Estimated GFR (MDRD) Non-Af Amer 95 mL/min >60 [facility] Comment on above: Non- GFR Calc Platelets bldOrdered By: Pet er Kenny on 11-22-2022 Platelets (Bld) [#/Vol] 320 10*3/uL 150-450 [facility] Serum or plasma calcium oral urement (mass/volume)Ordered By: Carlos Cavazos on 11-22-2022 Calcium [Mass/Vol] 8.7 mg/dL 8.5-10.1 [facility] Serum or plasma creatinine m easurement (mass/volume)Ordered By: Carlos Cavazos on 11-22-2022 Creatinine [Mass/Vol] 0.85 mg/dL 0.70-1.30 [facility] Comment on above: The validity of the calculated GFR & GFRAA in patients over 70 years has not been determined. Clinical correlation is essential. Serum or plasma urea nitroge n measurement (mass/volume)Ordered By: Carlos Cavazos on 11-22-2022 Urea nitrogen [Mass/Vol] 20 mg/dL 7-18 [facility] Thin prep Papanicolaou smear with manual screeningOrdered By: Carlos Cavazos on 11-22-2022 Thin prep Papanicolaou smear with manual screening 8 5-15 [facility] Laboratory - CoagulationOrde red By: Carlos Cavazos on 11-09-2022 INR Coag (Bld) [Relative time] 2.1 {INR} [facility] Comment on above: Critical Value > 4.0 Whole blood prothrombin time Ordered By: Carlos Caavzos on 11-09-2022 PT Coag (Bld) [Time] 22.6 s 11.7-14.9 [facility] Laboratory - CoagulationOrde red By: Carlos Cavazos on 10-26-2022 INR Coag (Bld) [Relative time] 2.6 {INR} [facility] Comment on above: Critical Value > 4.0 Whole blood prothrombin time Ordered By: Carlos Cavazos on 10-26-2022 PT Coag (Bld) [Time] 28.5 s 11.7-14.9 [facility] Laboratory - CoagulationOrde red By: Carlos Cavazos on 10-12-2022 INR Coag (Bld) [Relative time] 2.4 {INR} [facility] Comment on above: Critical Value > 4.0 Whole blood prothrombin time Ordered By: Carlos Cavazos on 10-12-2022 PT Coag (Bld) [Time] 26.4 s 11.7-14.9 [facility] Laboratory - CoagulationOrde red By: Carlos Cavazos on 10-05-2022 INR Coag (Bld) [Relative time] 2.6 {INR} [facility] Comment on above: Critical Value > 4.0 Whole blood prothrombin time Ordered By: Carlos Cavazos on 10-05-2022 PT Coag (Bld) [Time] 28.0 s 11.7-14.9 [facility] Laboratory - CoagulationOrde red By: Carlos Cavazos on 09-28-2022 INR Coag (Bld) [Relative time] 2.7 {INR} [facility] Comment on above: Critical Value > 4.0 Whole blood prothrombin time Ordered By: Carlos Cavazos on 09-28-2022 PT Coag (Bld) [Time] 28.9 s 11.7-14.9 [facility] Laboratory - CoagulationOrde red By: Carlos Cavazos on 09-14-2022 INR Coag (Bld) [Relative time] 2.5 {INR} [facility] Comment on above: Critical Value > 4.0 Whole blood prothrombin time Ordered By: Carlos Cavazos on 09-14-2022 PT Coag (Bld) [Time] 27.4 s 11.7-14.9 [facility] Laboratory - CoagulationOrde red By: Carlos Cavazos on 08-31-2022 INR Coag (Bld) [Relative time] 2.3 {INR} [facility] Comment on above: Critical Value > 4.0 Whole blood prothrombin time Ordered By: Carlos Cavazos on 08-31-2022 PT Coag (Bld) [Time] 25.4 s 11.7-14.9 [facility] Basophil percentageOrdered B y: Carlos Cavazos on 08-23-2022 Chloride [Moles/Vol] 108 mmol/L 98-107 [facility] Glucose [Mass/Vol] 86 mg/dL 74-106 [facility] Potassium [Moles/Vol] 4.3 mmol/L 3.5-5.1 [facility] Sodium [Moles/Vol] 136 mmol/L 136-145 [facility] WBC (Bld) [#/Vol] 10.0 10*3/uL 4.4-11.0 [facility] Blood erythrocytes count (nu mber/volume)Ordered By: Carlos Cavazos on 08-23-2022 RBC (Bld) [#/Vol] 4.77 10*6/uL 4.6-6.2 [facility] Blood hemoglobin measurement (mass/volume)Ordered By: Carlos Cavazos on 08-23-2022 Hemoglobin (Bld) [Mass/Vol] 12.5 g/dL 13.0-16.5 [facility] Blood platelet mean volumeOr dered By: Carlos Cavazos on 08-23-2022 Platelet mean volume (Bld) [Entitic vol] 11.0 fL 6.2-12.0 [facility] Determination of erythrocyte mean corpuscular volume (MCV)Ordered By: Carlos Cavazos on 08-23-2022 MCV (RBC) [Entitic vol] 84.3 fL 80-94 [facility] Hematocrit Auto (Bld) [Volum e fraction]Ordered By: Carlos Cavazos on 08-23-2022 Hematocrit (Bld) [Volume fraction] 40.2 % 40-54 [facility] Laboratory - Chemistry and C hemistry - challengeOrdered By: Carlos Cavazos on 08-23-2022 CO2 [Moles/Vol] 24.0 mmol/L 21.0-32.0 [facility] Urea nitrogen/Creatinine [Mass ratio] 22.8 mg/mg 10-20 [facility] Laboratory - Hematology and Cell countsOrdered By: Carlos Cavazos on 08-23-2022 Erythrocyte distribution width (RBC) [Entitic vol] 49.3 fL 35.1-43.9 [facility] Erythrocyte distribution width (RBC) [Ratio] 16.0 % 11.6-14.6 [facility] MCH (RBC) [Entitic mass] 26.2 pg 27.0-32.0 [facility] MCHC Auto (RBC) [Mass/Vol]Or dered By: Carlos Cavazos on 08-23-2022 MCHC (RBC) [Mass/Vol] 31.1 g/dL 32-36 [facility] No Panel InformationOrdered By: Carlos Cavazos on 08-23-2022 Estimated GFR (MDRD) Amer 134 mL/min >60 [facility] Comment on above: GFR Calc Estimated GFR (MDRD) Non-Af Amer 110 mL/min >60 [facility] Comment on above: Non- GFR Calc Platelets bldOrdered By: Ted Cavazos on 08-23-2022 Platelets (Bld) [#/Vol] 268 10*3/uL 150-450 [facility] Serum or plasma calcium oral urement (mass/volume)Ordered By: Carlos Cavazos on 08-23-2022 Calcium [Mass/Vol] 9.1 mg/dL 8.5-10.1 [facility] Serum or plasma creatinine m easurement (mass/volume)Ordered By: Carlos Cavazos on 08-23-2022 Creatinine [Mass/Vol] 0.74 mg/dL 0.70-1.30 [facility] Comment on above: The validity of the calculated GFR & GFRAA in patients over 70 years has not been determined. Clinical correlation is essential. Serum or plasma urea nitroge n measurement (mass/volume)Ordered By: Carlos Cavazos on 08-23-2022 Urea nitrogen [Mass/Vol] 17 mg/dL 7-18 [facility] Thin prep Papanicolaou smear with manual screeningOrdered By: Carlos Cavazos on 08-23-2022 Thin prep Papanicolaou smear with manual screening 4 5-15 [facility] Laboratory - CoagulationOrde red By: Carlos Cavazos on 08-17-2022 INR Coag (Bld) [Relative time] 2.8 {INR} [facility] Comment on above: Critical Value > 4.0 Whole blood prothrombin time Ordered By: Carlos Cavazos on 08-17-2022 PT Coag (Bld) [Time] 29.6 s 11.7-14.9 [facility] Laboratory - CoagulationOrde red By: Carlos Cavazos on 08-14-2022 INR Coag (Bld) [Relative time] 3.9 {INR} [facility] Comment on above: Critical Value > 4.0 Whole blood prothrombin time Ordered By: Carlos Cavazos on 08-14-2022 PT Coag (Bld) [Time] 40.6 s 11.7-14.9 [facility] Laboratory - CoagulationOrde red By: Carlos Cavazos on 07-31-2022 INR Coag (Bld) [Relative time] 2.5 {INR} [facility] Comment on above: Critical Value > 4.0 Whole blood prothrombin time Ordered By: Carlos Cavazos on 07-31-2022 PT Coag (Bld) [Time] 26.8 s 11.7-14.9 [facility] INR in Blood by Coagulation assayOrdered By: Carlos Cavazos on 07-24-2022 INR Coag (Bld) [Relative time] 2.3 {INR} [facility] Laboratory - CoagulationOrde red By: Carlos Cavazos on 07-24-2022 PT Coag (PPP) [Time] 24.7 s 11.7-14.9 [facility] Laboratory - CoagulationOrde red By: Carlos Cavazos on 07-20-2022 INR Coag (Bld) [Relative time] 1.9 {INR} [facility] Comment on above: Critical Value > 4.0 Whole blood prothrombin time Ordered By: Carlos Cavazos on 07-20-2022 PT Coag (Bld) [Time] 20.6 s 11.7-14.9 [facility] Laboratory - CoagulationOrde red By: Carlos Cavazos on 07-17-2022 INR Coag (Bld) [Relative time] 1.3 {INR} [facility] Comment on above: Critical Value > 4.0 Whole blood prothrombin time Ordered By: Carlos Cavazos on 07-17-2022 PT Coag (Bld) [Time] 15.9 s 11.7-14.9 [facility] Basophil percentageOrdered B y: Carlos Cavazos on 07-11-2022 Chloride [Moles/Vol] 105 mmol/L 98-107 [facility] Glucose [Mass/Vol] 97 mg/dL 74-106 [facility] Potassium [Moles/Vol] 3.9 mmol/L 3.5-5.1 [facility] Sodium [Moles/Vol] 140 mmol/L 136-145 [facility] WBC (Bld) [#/Vol] 9.4 10*3/uL 4.4-11.0 [facility] Blood erythrocytes count (nu mber/volume)Ordered By: Carlos Cavazos on 07-11-2022 RBC (Bld) [#/Vol] 4.66 10*6/uL 4.6-6.2 [facility] Blood hemoglobin measurement (mass/volume)Ordered By: Carlos Cavazos on 07-11-2022 Hemoglobin (Bld) [Mass/Vol] 12.0 g/dL 13.0-16.5 [facility] Blood platelet mean volumeOr dered By: Carlos Cavazos on 07-11-2022 Platelet mean volume (Bld) [Entitic vol] 10.4 fL 6.2-12.0 [facility] Determination of erythrocyte mean corpuscular volume (MCV)Ordered By: Carlos Cavazos on 07-11-2022 MCV (RBC) [Entitic vol] 83.7 fL 80-94 [facility] Hematocrit Auto (Bld) [Volum e fraction]Ordered By: Carlos Cavazos on 07-11-2022 Hematocrit (Bld) [Volume fraction] 39.0 % 40-54 [facility] Laboratory - Chemistry and C hemistry - challengeOrdered By: Carlos Cavazos on 07-11-2022 CO2 [Moles/Vol] 28.0 mmol/L 21.0-32.0 [facility] Urea nitrogen/Creatinine [Mass ratio] 23.0 mg/mg 10-20 [facility] Laboratory - Hematology and Cell countsOrdered By: Carlos Cavazos on 07-11-2022 Erythrocyte distribution width (RBC) [Entitic vol] 51.0 fL 35.1-43.9 [facility] Erythrocyte distribution width (RBC) [Ratio] 16.8 % 11.6-14.6 [facility] MCH (RBC) [Entitic mass] 25.8 pg 27.0-32.0 [facility] MCHC Auto (RBC) [Mass/Vol]Or dered By: Carlos Cavazos on 07-11-2022 MCHC (RBC) [Mass/Vol] 30.8 g/dL 32-36 [facility] No Panel InformationOrdered By: Carlos Cavazos on 07-11-2022 Estimated GFR (MDRD) Amer 126 mL/min >60 [facility] Comment on above: GFR Calc Estimated GFR (MDRD) Non-Af Amer 104 mL/min >60 [facility] Comment on above: Non- GFR Calc Platelets bldOrdered By: Ted Cavazos on 07-11-2022 Platelets (Bld) [#/Vol] 291 10*3/uL 150-450 [facility] Serum or plasma calcium oral urement (mass/volume)Ordered By: Carlos Cavazos on 07-11-2022 Calcium [Mass/Vol] 9.2 mg/dL 8.5-10.1 [facility] Serum or plasma creatinine m easurement (mass/volume)Ordered By: Carlos Cavazos on 07-11-2022 Creatinine [Mass/Vol] 0.78 mg/dL 0.70-1.30 [facility] Comment on above: The validity of the calculated GFR & GFRAA in patients over 70 years has not been determined. Clinical correlation is essential. Serum or plasma urea nitroge n measurement (mass/volume)Ordered By: Carlos Cavazos on 07-11-2022 Urea nitrogen [Mass/Vol] 18 mg/dL 7-18 [facility] Thin prep Papanicolaou smear with manual screeningOrdered By: Carlos Cavazos on 07-11-2022 Thin prep Papanicolaou smear with manual screening 7 5-15 [facility] Laboratory - CoagulationOrde red By: Carlos Cavazos on 07-10-2022 INR Coag (Bld) [Relative time] 1.8 {INR} [facility] Comment on above: Critical Value > 4.0 Whole blood prothrombin time Ordered By: Carlos Cavazos on 07-10-2022 PT Coag (Bld) [Time] 21.0 s 11.7-14.9 [facility] Laboratory - CoagulationOrde red By: Carlos Cavazos on 07-03-2022 INR Coag (Bld) [Relative time] 1.9 {INR} [facility] Comment on above: Critical Value > 4.0 Whole blood prothrombin time Ordered By: Carlos Cavazos on 07-03-2022 PT Coag (Bld) [Time] 22.7 s 11.7-14.9 [facility] INR in Blood by Coagulation assayOrdered By: Carlos Cavazos on 06-27-2022 INR Coag (Bld) [Relative time] 2.9 {INR} [facility] Laboratory - CoagulationOrde red By: Carlos Cavazos on 06-27-2022 PT Coag (PPP) [Time] 29.9 s 11.7-14.9 [facility] Laboratory - CoagulationOrde red By: Carlos Cavazos on 06-13-2022 INR Coag (Bld) [Relative time] 2.1 {INR} [facility] Comment on above: Critical Value > 4.0 Whole blood prothrombin time Ordered By: Carlos Cavazos on 06-13-2022 PT Coag (Bld) [Time] 24.4 s 11.7-14.9 [facility] Laboratory - CoagulationOrde red By: Carlos Cavazos on 06-06-2022 INR Coag (Bld) [Relative time] 1.5 {INR} [facility] Comment on above: Critical Value > 4.0 Whole blood prothrombin time Ordered By: Carlos Cavazos on 06-06-2022 PT Coag (Bld) [Time] 18.4 s 11.7-14.9 [facility] Basophil percentageOrdered B y: Carlos Cavazos on 05-30-2022 Chloride [Moles/Vol] 105 mmol/L 98-107 [facility] Glucose [Mass/Vol] 95 mg/dL 74-106 [facility] Potassium [Moles/Vol] 3.9 mmol/L 3.5-5.1 [facility] Sodium [Moles/Vol] 140 mmol/L 136-145 [facility] WBC (Bld) [#/Vol] 7.6 10*3/uL 4.4-11.0 [facility] Blood erythrocytes count (nu mber/volume)Ordered By: Carlos Cavazos on 05-30-2022 RBC (Bld) [#/Vol] 4.79 10*6/uL 4.6-6.2 [facility] Blood hemoglobin measurement (mass/volume)Ordered By: Carlos Cavazos on 05-30-2022 Hemoglobin (Bld) [Mass/Vol] 12.1 g/dL 13.0-16.5 [facility] Blood platelet mean volumeOr dered By: Carlos Cavazos on 05-30-2022 Platelet mean volume (Bld) [Entitic vol] 10.4 fL 6.2-12.0 [facility] Determination of erythrocyte mean corpuscular volume (MCV)Ordered By: Carlos Cavazos on 05-30-2022 MCV (RBC) [Entitic vol] 82.5 fL 80-94 [facility] Hematocrit Auto (Bld) [Volum e fraction]Ordered By: Carlos Cavazos on 05-30-2022 Hematocrit (Bld) [Volume fraction] 39.5 % 40-54 [facility] INR in Blood by Coagulation assayOrdered By: Carlos Cavazos on 05-30-2022 INR Coag (Bld) [Relative time] 1.9 {INR} [facility] Laboratory - Chemistry and C hemistry - challengeOrdered By: Carlos Cavazos on 05-30-2022 CO2 [Moles/Vol] 27.0 mmol/L 21.0-32.0 [facility] Urea nitrogen/Creatinine [Mass ratio] 21.4 mg/mg 10-20 [facility] Laboratory - CoagulationOrde red By: Carlos Cavazos on 05-30-2022 PT Coag (PPP) [Time] 21.6 s 11.7-14.9 [facility] Laboratory - Hematology and Cell countsOrdered By: Carlos Cavazos on 05-30-2022 Erythrocyte distribution width (RBC) [Entitic vol] 48.8 fL 35.1-43.9 [facility] Erythrocyte distribution width (RBC) [Ratio] 16.2 % 11.6-14.6 [facility] MCH (RBC) [Entitic mass] 25.3 pg 27.0-32.0 [facility] [Mass/Vol]Or dered By: Carlos Cavazos on 05-30-2022 MCHC (RBC) [Mass/Vol] 30.6 g/dL 32-36 [facility] No Panel InformationOrdered By: Carlos Cavazos on 05-30-2022 Estimated GFR (MDRD) Amer 133 mL/min >60 [facility] Comment on above: GFR Calc Estimated GFR (MDRD) Non-Af Amer 110 mL/min >60 [facility] Comment on above: Non- GFR Calc Platelets bldOrdered By: Ted Cavazos on 05-30-2022 Platelets (Bld) [#/Vol] 308 10*3/uL 150-450 [facility] Serum or plasma calcium oral urement (mass/volume)Ordered By: Carlos Cavazos on 05-30-2022 Calcium [Mass/Vol] 9.1 mg/dL 8.5-10.1 [facility] Serum or plasma creatinine m easurement (mass/volume)Ordered By: Carlos Cavazos on 05-30-2022 Creatinine [Mass/Vol] 0.75 mg/dL 0.70-1.30 [facility] Comment on above: The validity of the calculated GFR & GFRAA in patients over 70 years has not been determined. Clinical correlation is essential. Serum or plasma urea nitroge n measurement (mass/volume)Ordered By: Carlos Cavazos on 05-30-2022 Urea nitrogen [Mass/Vol] 16 mg/dL 7-18 [facility] Thin prep Papanicolaou smear with manual screeningOrdered By: Carlos Cavazos on 05-30-2022 Thin prep Papanicolaou smear with manual screening 8 5-15 [facility] Laboratory - CoagulationOrde red By: Carlos Cavazos on 05-16-2022 INR Coag (Bld) [Relative time] 2.6 {INR} [facility] Comment on above: Critical Value > 4.0 Whole blood prothrombin time Ordered By: Carlos Cavazos on 05-16-2022 PT Coag (Bld) [Time] 29.9 s 11.7-14.[address] [facility] Laboratory - CoagulationOrde red By: Carlos Cavazos on 05-02-2022 INR Coag (Bld) [Relative time] 2.0 {INR} [facility] Comment on above: Critical Value > 4.0 Whole blood prothrombin time Ordered By: Carlos Cavazos on 05-02-2022 PT Coag (Bld) [Time] 23.2 s 11.7-14.9 [facility] Laboratory - CoagulationOrde red By: Carlos Cavazos on 04-27-2022 INR Coag (Bld) [Relative time] 2.7 {INR} [facility] Comment on above: Critical Value > 4.0 Whole blood prothrombin time Ordered By: Carlos Cvaazos on 04-27-2022 PT Coag (Bld) [Time] 31.1 s 11.7-14.9 [facility] Laboratory - CoagulationOrde red By: Carlos Cavazos on 04-26-2022 INR Coag (Bld) [Relative time] 2.8 {INR} [facility] Comment on above: Critical Value > 4.0 Whole blood prothrombin time Ordered By: Carlos Cavazos on 04-26-2022 PT Coag (Bld) [Time] 32.6 s 11.7-14.9 [facility] Laboratory - CoagulationOrde red By: Carlos Cavazos on 04-11-2022 INR Coag (Bld) [Relative time] 2.9 {INR} [facility] Comment on above: Critical Value > 4.0 Whole blood prothrombin time Ordered By: Carlos Cavazos on 04-11-2022 PT Coag (Bld) [Time] 32.8 s 11.7-14.9 [facility] Laboratory - CoagulationOrde red By: Carlos Cavazos on 03-28-2022 INR Coag (Bld) [Relative time] 2.1 {INR} [facility] Comment on above: Critical Value > 4.0 Whole blood prothrombin time Ordered By: Carlos Cavazos on 03-28-2022 PT Coag (Bld) [Time] 24.8 s 11.7-14.9 [facility] Laboratory - CoagulationOrde red By: Carlos Cavazos on 03-23-2022 INR Coag (Bld) [Relative time] 1.7 {INR} [facility] Comment on above: Critical Value > 4.0 Whole blood prothrombin time Ordered By: Carlos Cavazos on 03-23-2022 PT Coag (Bld) [Time] 20.9 s 11.7-14.9 [facility] Laboratory - CoagulationOrde red By: Carlos Cavazos on 03-16-2022 INR Coag (Bld) [Relative time] 1.7 {INR} [facility] Comment on above: Critical Value > 4.0 Whole blood prothrombin time Ordered By: Carlos Cavazos on 03-16-2022 PT Coag (Bld) [Time] 19.9 s 11.7-14.9 [facility] Laboratory - CoagulationOrde red By: Carlos Cavazos on 03-09-2022 INR Coag (Bld) [Relative time] 1.8 {INR} [facility] Comment on above: Critical Value > 4.0 Whole blood prothrombin time Ordered By: Carlos Cavazos on 03-09-2022 PT Coag (Bld) [Time] 21.9 s 11.7-14.9 [facility] Laboratory - CoagulationOrde red By: Carlos Cavazos on 03-06-2022 INR Coag (Bld) [Relative time] 1.7 {INR} [facility] Comment on above: Critical Value > 4.0 Whole blood prothrombin time Ordered By: Carlos Cavazos on 03-06-2022 PT Coag (Bld) [Time] 20.0 s 11.7-14.9 [facility] CBC with Auto Differentialon 03-02-2022 Absolute [...] 10*3/uL [facility] Test Performed by [facility], [address] [place] [address] [facility] [address] HEAD WO CONTRASTon 2021 Patient Name: ANDREW SIFUENTES Computed Tomography ACCESSION EXAM DATE/TIME PROCEDURE ORDERING PROVIDER [id number] 03/02/2022 13:[address] Head or Brain w/o [id number] -LANETTE MUNGUIA Contrast CPT code 30340 Reason For Exam (CT Head or Brain [...] tubes (parent active on the left for GENERAL PARTNER shunting and disconnected on the right). 2. No definite evidence of acute infarction (MRI more sensitive), mass lesion, nor hemorrhage. Report Dictated on --- Final --- Dictated: 03/02/2022 1:35 pm Dictating Physician: MD GUTIERREZ WILLIAM Signed Date and Time: 03/02/2022 1:39 pm Signed by: MD GUTIERREZ WILLIAM Transcribed Date and Time: 03/02/2022 1:35 [facility] Anant Gutierrez MD - 03/02/2022 [id number] ACCESSION EXAM DATE/TIME PROCEDURE ORDERING PROVIDER [id number] 03/02/2022 13:[address] Head or Brain w/o [id number] -EZRA LANETTE Contrast CPT code 78171 Reason For Exam (CT Head or Brain [...] tubes (parent active on the left for GENERAL PARTNER shunting and disconnected on the right). 2. [...] Tomography ACCESSION EXAM DATE/TIME PROCEDURE ORDERING PROVIDER [id number] 03/02/2022 13:[address] Head or Brain w/o [id number] -LANETTE MUNGUIA Contrast CPT code 08921 Reason For Exam (CT Head or Brain [...] tubes (parent active on the left for GENERAL PARTNER shunting and disconnected on the right). 2. No definite evidence of acute infarction (MRI more sensitive), mass lesion, nor hemorrhage. Report Dictated on Final Dictated: 03/02/2022 1:35 pm Dictating Physician: MD GUTIERREZ WILLIAM Signed Date and Time: 03/02/2022 1:39 pm Signed by: MD GUTIERREZ WILLIAM Transcribed Date and Time: 03/02/2022 1:35 Normal [facility] Comp Metabolic Panelon 03-02 Calcium [Mass/Vol] 9.1 mg/dL Normal 8.4-10.4 [facility] Comment on above: Performed By: #### H TIERA PT, CMP3 ####[id number] [place], [place] ALP [Catalytic activity/Vol] 128 U/L High 38-126 [facility] Comment on above: Performed By: #### H TIERA PT, CMP3 ####[id number] [place], [place] ALT [Catalytic activity/Vol] 12 U/L Normal 0-49 [facility] Comment on above: Result Comment: The ALT test is performed by an updated assay method. Please note that the reference intervals have been changed and are now sex specific. Performed By: #### H EMDF PT, CMP3 ####[id number] [place], [place] Anion gap [Moles/Vol] 7 mmol/L Normal 3-13 [facility] Comment on above: Performed By: #### H EMDF PT, CMP3 ####[id number] [place], [place] AST [Catalytic activity/Vol] 24 U/L Normal 15-46 [facility] Comment on above: Performed By: #### H CHRISTEL MOTT, CMP3 ####[address] [place], [place] Bilirubin [Mass/Vol] 0.4 mg/dL Normal 0.2-1.3 [facility] Comment on above: Performed By: #### H CHRISTEL MOTT, CMP3 ####[address] [place], [place] CO2 [Moles/Vol] 27 mmol/L Normal 22-30 [facility] Comment on above: Performed By: #### H CHRISTEL MOTT CMP3 ####[address] [place], [place] Glucose [Mass/Vol] 109 mg/dL High 70-100 [facility] Comment on above: Performed By: #### H CHRISTEL MOTT, CMP3 ####[address] [place], [place] Protein [Mass/Vol] 8.1 g/dL Normal 6.3-8.2 [facility] Comment on above: Performed By: #### H CHRISTEL MOTT, CMP3 ####[address] [address] [place], [place] Urea nitrogen [Mass/Vol] 22 mg/dL High 7-17 [facility] Comment on above: Performed By: #### H CHRISTEL MOTT, CMP3 ####[address] [place], [place] Creatinine [Mass/Vol] 0.63 mg/dL Normal 0.52-1.25 [facility] Comment on above: Performed By: #### H CHRISTEL MOTT, CMP3 ####[id number] [place], [place] eGFR OTHER > 90.0 Normal >60 [facility] Comment on above: Result Comment: KDIG [...] Performed By: #### H CHRISTEL MOTT CMP3 ####[id number] [place] [address] GFR/1.73 sq M.predicted among blacks MDRD (S/P/Bld) [Vol rate/Area] mL/min/{1.73_m2} Normal >60 [facility] Comment on above: Performed By: #### H CHRISTEL MOTT CMP3 ####[address] [address] Albumin [Mass/Vol] 4.1 g/dL Normal 3.5-5.0 [facility] Comment on above: Performed By: #### H CHRISTEL MOTT CMP3 ####[address] [address] Chloride [Moles/Vol] 106 mmol/L Normal 98-107 [facility] Comment on above: Performed By: #### H CHRISTEL MOTT CMP3 ####[address] [address] Potassium [Moles/Vol] 3.7 mmol/L Normal 3.5-5.1 [facility] Comment on above: Performed By: #### H CHRISTEL MOTT CMP3 ####[id number] [place] [address] Sodium [Moles/Vol] 140 mmol/L Normal 135-145 [facility] Comment on above: Performed By: #### H EMDF, PT, CMP3 ####[facility] [place] [address] Comprehensive Metabolic Pane [facility] 03-02-2022 Albumin [Mass/Vol] 4.1 g/dL 3.5 - [...] P INF mL/min [facility] EGFR IF NonAfrican [place] mL/min 60 - PINF mL/min [facility] Comment [...] mg/dL [facility] Test Performed by [facility], [address] [place] [id number] [facility] ED Provider Noteon 2 ED Provider Note [facility] EMERGENCY DEPT EMERGENCY DEPARTMENT ENCOUNTER Pt Name: Andrew Sifuentes Birthdate 1950 Date of evaluation: 03/02/2022 Provider: Lanette Munguia DO CHIEF COMPLAINT Chief Complaint Patient presents with Fall Patient had unwitnessed fall at [facility] landed on butt. Is on thinners, denies LOC, denies head injury has no complaints at this time HISTORY OF PRESENT ILLNESS (Location/Symptom, Timing/Onset, Context/Setting, Quality, Duration, Modifying Factors, Severity) Note limiting factors. I wore a N-95 mask for the entirety of this encounter. Andrew Sifuentes is a 71 y.o. male medical history of hydrocephalus status post GENERAL PARTNER shunt, history of DVT on Coumadin who [facility] mechanical fall. Patient rolled out of bed. Unwitnessed. Found down on ground by nursing staff. Nonambulatory at baseline. Patient reports he did not hit his head. Has no acute complaints. Denies any pain or traumatic injury. 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 Normal [facility] Hemogram w/ Autodiffon 03-02 Abs Baso Cnt 0.2 10*3/uL Normal 0.0-0.2 [facility] Comment on above: Performed By: #### H EMDF PT, CMP3 ####[facility] [place] [address] Abs Neutrophile Cnt 10.7 10*3/uL High 1.8-7.0 [facility] Comment on above: Performed By: #### H EMDF, PT, CMP3 ####[facility] [place] [address] Basophils/100 WBC (Bld) 1.1 % Normal 0.0-2.0 [facility] Comment on above: Performed By: #### H EMDF, PT, CMP3 ####[facility] [place] [address] Eosinophils (Bld) [#/Vol] 0.1 10*3/uL Normal 0.0-0.5 [facility] Comment on above: Performed By: #### H EMDHeydi PT, CMP3 ####[address] [address] Eosinophils/100 WBC (Bld) 0.5 % Low 1.0-6.0 [facility] Comment on above: Performed By: #### H EMDF PT, CMP3 ####[address] [address] Granulocytes/100 WBC (Bld) 73.9 % Normal 40.0-80.0 [facility] Comment on above: Performed By: #### H TIERA PT, CMP3 ####[address] [address] Lymphocytes (Bld) [#/Vol] 3.0 10*3/uL Normal 1.0-4.3 [facility] Comment on above: Performed By: #### H TIERA PT, CMP3 ####[address] [address] Lymphocytes/100 WBC (Bld) 20.6 % Normal 20.0-40.0 [facility] Comment on above: Performed By: #### H EMDHeydi PT, CMP3 ####[address] [address] Monocytes (Bld) [#/Vol] 0.6 10*3/uL Normal 0.0-0.8 [facility] Comment on above: Performed By: #### H EMDF PT, CMP3 ####[address] [address] Monocytes/100 WBC (Bld) 3.9 % Normal 2.0-10.0 [facility] Comment on above: Performed By: #### H EMDF PT, CMP3 ####[address] [address] Platelet mean volume (Bld) [Entitic vol] 8.5 fL Normal 7.4-12.4 [facility] Comment on above: Result Comment: MPV is a calculated measurement using platelet volume ratio. Performed By: #### H EMDHeydi PT, CMP3 ####[address] Platelets (Bld) [#/Vol] 411 10*3/uL Normal 140-440 [facility] Comment on above: Performed By: #### H EMDHeydi PT, CMP3 ####[id number] [place], [place] Erythrocyte distribution width (RBC) [Ratio] 17.0 % High 11.5-14.5 [facility] Comment on above: Performed By: #### H TIERA PT, CMP3 ####[address] Hematocrit (Bld) [Volume fraction] 37.4 % Low 40.0-52.0 [facility] Comment on above: Performed By: #### H TIERA PT, CMP3 ####[address] Hemoglobin (Bld) [Mass/Vol] 12.1 g/dL Low 13.0-18.0 [facility] Comment on above: Performed By: #### H TIERA PT, CMP3 ####[id number] [place], [place] MCH (RBC) [Entitic mass] 26.2 pg Normal 26.0-34.0 [facility] Comment on above: Performed By: #### H EMDHeydi PT, CMP3 ####[id number] [place], [place] MCHC 32.3 % Normal 32.0-36.0 [facility] Comment on above: Performed By: #### H TIERA PT, CMP3 ####[address] MCV (RBC) [Entitic vol] 81.1 fL Normal 80.0-98.0 [facility] Comment on above: Performed By: #### H EMDHeydi PT, CMP3 ####[address] RBC (Bld) [#/Vol] 4.61 10*6/uL Normal 4.40-5.90 [facility] Comment on above: Performed By: #### H BIMALF PT, CMP3 ####[id number] [place], [place] WBC (Bld) [#/Vol] 14.5 10*3/uL High 3.6-10.7 [facility] Comment on above: Performed By: #### H BIMALF PT, CMP3 ####[id number] [place], [place] Prothrombin Timeon INR 1.9 High 0.9-1.1 [facility] Comment on above: Result Comment: Harry [...] Performed By: #### H TIERA PT, CMP3 ####[address] PT Coag (PPP) [Time] 18.9 s High 9.0-12.0 [facility] Comment on above: Result Comment: . Performed By: #### H TIERA PT, CMP3 ####[id number] [place], [place] Protime-INRon 03-02-2022 INR Coag (Bld) [Relative time] 1.9 {INR} High [facility] Comment on above: Recommended Anticoag ulant [...] of laboratory results Abnormal [facility] PT Coag (PPP) [Time] 18.9 s High 9.0 - 12.0 s [facility] Comment on above: . Test Performed by [facility], [address] [place] [id number] [place] [address] LAB [facility] Laboratory - CoagulationOrde red By: Carlos Cavazos on 02-20-2022 INR Coag (Bld) [Relative time] 2.6 {INR} [facility] Comment on above: Critical Value > 4.0 Whole blood prothrombin time Ordered By: Carlos Cavazos on 02-20-2022 PT Coag (Bld) [Time] 30.1 s 11.7-14.9 [facility] Laboratory - CoagulationOrde red By: Carlos Cavazos on 02-13-2022 INR Coag (Bld) [Relative time] 2.3 {INR} [facility] Comment on above: Critical Value > 4.0 Whole blood prothrombin time Ordered By: Carlos Cavazos on 02-13-2022 PT Coag (Bld) [Time] 26.7 s 11.7-14.9 [facility] Laboratory - CoagulationOrde red By: Carlos Cavazos on 02-06-2022 INR Coag (Bld) [Relative time] 2.3 {INR} [facility] Comment on above: Critical Value > 4.0 Whole blood prothrombin time Ordered By: Carlos Cavazos on 02-06-2022 PT Coag (Bld) [Time] 26.6 s 11.7-14.9 [facility] Laboratory - Coagulationon 0 01-30-2022 INR Coag (Bld) [Relative time] 1.7 {INR} [facility] Work Phone: Comment on above: Critical Value > 4.0 Whole blood prothrombin time on 01-30-2022 PT Coag (Bld) [Time] 20.1 s 11.7-14.9 [facility] Work Phone: Laboratory - Coagulationon 0 01-26-2022 INR Coag (Bld) [Relative time] 1.8 {INR} [facility] Work Phone: Comment on above: Critical Value > 4.0 Whole blood prothrombin time on 01-26-2022 PT Coag (Bld) [Time] 21.8 s 11.7-14.9 [facility] Work Phone: Laboratory - Coagulationon 0 01-19-2022 INR Coag (Bld) [Relative time] 2.2 {INR} [facility] Work Phone: Comment on above: Critical Value > 4.0 Whole blood prothrombin time on 01-19-2022 PT Coag (Bld) [Time] 25.7 s 11.7-14.9 [facility] Work Phone: INR in Blood by Coagulation assayon 01-10-2022 INR Coag (Bld) [Relative time] 1.8 {INR} [facility] Work Phone: Laboratory - Coagulationon 0 01-10-2022 PT Coag (PPP) [Time] 20.9 s 11.7-14.9 [facility] Work Phone: Basophil percentageon 2021 Chloride [Moles/Vol] 107 mmol/L 98-107 [facility] Work Phone: Glucose [Mass/Vol] 82 mg/dL 74-106 [facility] Work Phone: Potassium [Moles/Vol] 3.4 mmol/L 3.5-5.1 [facility] Work Phone: Sodium [Moles/Vol] 143 mmol/L 136-145 [facility] Work Phone: WBC (Bld) [#/Vol] 10.4 10*3/uL 4.4-11.0 [facility] Work Phone: Blood erythrocytes count (nu mber/volume)on 01-05-2022 RBC (Bld) [#/Vol] 4.27 10*6/uL 4.6-6.2 [facility] Work Phone: Blood hemoglobin measurement (mass/volume)on 01-05-2022 Hemoglobin (Bld) [Mass/Vol] 11.2 g/dL 13.0-16.5 [facility] Work Phone: Blood platelet mean volumeon 01-05-2022 Platelet mean volume (Bld) [Entitic vol] 10.3 fL 6.2-12.0 [facility] Work Phone: Determination of erythrocyte mean corpuscular volume (MCV)on 01-05-2022 MCV (RBC) [Entitic vol] 84.8 fL 80-94 [facility] Work Phone: Hematocrit Auto (Bld) [Volum e fraction]on 01-05-2022 Hematocrit (Bld) [Volume fraction] 36.2 % 40-54 [facility] Work Phone: Laboratory - Chemistry and C hemistry - challengeon 01-05-2022 CO2 [Moles/Vol] 28.0 mmol/L 21.0-32.0 [facility] Work Phone: Urea nitrogen/Creatinine [Mass ratio] 20.0 mg/mg 10-20 [facility] Work Phone: Laboratory - Hematology and Cell countson 01-05-2022 Erythrocyte distribution width (RBC) [Entitic vol] 51.8 fL 35.1-43.9 [facility] Work Phone: Erythrocyte distribution width (RBC) [Ratio] 16.8 % 11.6-14.6 [facility] Work Phone: MCH (RBC) [Entitic mass] 26.2 pg 27.0-32.0 [facility] Work Phone: MCHC Auto (RBC) [Mass/Vol]on 01-05-2022 MCHC (RBC) [Mass/Vol] 30.9 g/dL 32-36 [facility] Work Phone: No Panel Informationon 01-05 Estimated GFR (MDRD) Amer 133 mL/min >60 [facility] Work Phone: Comment on above: GFR Calc Estimated GFR (MDRD) Non-Af Amer 110 mL/min >60 [facility] Work Phone: Comment on above: Non- GFR Calc Platelets bldon 01-05-2022 Platelets (Bld) [#/Vol] 373 10*3/uL 150-450 [facility] Work Phone: Serum or plasma calcium oral urement (mass/volume)on 01-05-2022 Calcium [Mass/Vol] 8.8 mg/dL 8.5-10.1 [facility] Work Phone: Serum or plasma creatinine m easurement (mass/volume)on 01-05-2022 Creatinine [Mass/Vol] 0.75 mg/dL 0.70-1.30 [facility] Work Phone: Comment on above: The validity of the calculated GFR & GFRAA in patients over 70 years has not been determined. Clinical correlation is essential. Serum or plasma urea nitroge n measurement (mass/volume)on 01-05-2022 Urea nitrogen [Mass/Vol] 15 mg/dL 7-18 [facility] Work Phone: Thin prep Papanicolaou smear with manual screeningon 01-05-2022 Thin prep Papanicolaou smear with manual screening 8 5-15 [facility] Work Phone: Laboratory - Coagulationon 0 12-30-2021 INR Coag (Bld) [Relative time] 2.0 {INR} [facility] Work Phone: Comment on above: Critical Value > 4.0 Whole blood prothrombin time on 12-30-2021 PT Coag (Bld) [Time] 23.7 s 11.7-14.9 [facility] Work Phone: Basophil percentageon 2021 Chloride [Moles/Vol] 106 mmol/L 98-107 [facility] Work Phone: Glucose [Mass/Vol] 91 mg/dL 74-106 [facility] Work Phone: Potassium [Moles/Vol] 3.4 mmol/L 3.5-5.1 [facility] Work Phone: Sodium [Moles/Vol] 141 mmol/L 136-145 [facility] Work Phone: WBC (Bld) [#/Vol] 10.2 10*3/uL 4.4-11.0 [facility] Work Phone: Blood erythrocytes count (nu mber/volume)on 12-28-2021 RBC (Bld) [#/Vol] 4.22 10*6/uL 4.6-6.2 [facility] Work Phone: Blood hemoglobin measurement (mass/volume)on 12-28-2021 Hemoglobin (Bld) [Mass/Vol] 11.2 g/dL 13.0-16.5 [facility] Work Phone: Blood platelet mean volumeon 12-28-2021 Platelet mean volume (Bld) [Entitic vol] 10.1 fL 6.2-12.0 [facility] Work Phone: Determination of erythrocyte mean corpuscular volume (MCV)on 12-28-2021 MCV (RBC) [Entitic vol] 82.7 fL 80-94 [facility] Work Phone: Hematocrit Auto (Bld) [Volum e fraction]on 12-28-2021 Hematocrit (Bld) [Volume fraction] 34.9 % 40-54 [facility] Work Phone: Laboratory - Chemistry and C hemistry - challengeon 12-28-2021 CO2 [Moles/Vol] 30.0 mmol/L 21.0-32.0 [facility] Work Phone: Urea nitrogen/Creatinine [Mass ratio] 33.7 mg/mg 10-20 [facility] Work Phone: Laboratory - Hematology and Cell countson 12-28-2021 Erythrocyte distribution width (RBC) [Entitic vol] 49.1 fL 35.1-43.9 [facility] Work Phone: Erythrocyte distribution width (RBC) [Ratio] 16.5 % 11.6-14.6 [facility] Work Phone: MCH (RBC) [Entitic mass] 26.5 pg 27.0-32.0 [facility] Work Phone: MCHC Auto (RBC) [Mass/Vol]on 12-28-2021 MCHC (RBC) [Mass/Vol] 32.1 g/dL 32-36 [facility] Work Phone: No Panel Informationon 12-28 Estimated GFR (MDRD) Amer 174 mL/min >60 [facility] Work Phone: Comment on above: GFR Calc Estimated GFR (MDRD) Non-Af Amer 143 mL/min >60 [facility] Work Phone: Comment on above: Non- GFR Calc Platelets bldon 12-28-2021 Platelets (Bld) [#/Vol] 339 10*3/uL 150-450 [facility] Work Phone: Serum or plasma calcium oral urement (mass/volume)on 12-28-2021 Calcium [Mass/Vol] 8.6 mg/dL 8.5-10.1 [facility] Work Phone: Serum or plasma creatinine m easurement (mass/volume)on 12-28-2021 Creatinine [Mass/Vol] 0.59 mg/dL 0.70-1.30 [facility] Work Phone: Comment on above: The validity of the calculated GFR & GFRAA in patients over 70 years has not been determined. Clinical correlation is essential. Serum or plasma urea nitroge n measurement (mass/volume)on 12-28-2021 Urea nitrogen [Mass/Vol] 20 mg/dL 7-18 [facility] Work Phone: Thin prep Papanicolaou smear with manual screeningon 12-28-2021 Thin prep Papanicolaou smear with manual screening 5 5-15 [facility] Work Phone: CULTURE BLOODon 12-27-2021 Microscopic examination of blood, culture CULTURE BLOOD --> Status: F No growth at 5 days. Normal [facility] Comment on above: Performed By: #### C /BLD #### [facility] [employer] [facility] [address] [place] [address] Laboratory - Coagulationon 0 12-26-2021 INR Coag (Bld) [Relative time] 1.7 {INR} [facility] Work Phone: Comment on above: Critical Value > 4.0 Whole blood prothrombin time on 12-26-2021 PT Coag (Bld) [Time] 20.8 s 11.7-14.9 [facility] Work Phone: Basic Metabolic Panelon 12-05 Calcium [Mass/Vol] 8.8 mg/dL Normal 8.4-10.4 [facility] Comment on above: Performed By: #### C RP2, ESR, HEMDF, BMP3 ####[facility] [place], [place] Anion gap [Moles/Vol] 6 mmol/L Normal 3-13 [facility] Comment on above: Performed By: #### C RP2, ESR, HEMDF, BMP3 ####[employer] [facility] [place], [place] CO2 [Moles/Vol] 27 mmol/L Normal 22-30 [facility] Comment on above: Performed By: #### C RP2, ESR, HEMDF, BMP3 ####[facility] [place], [place] Glucose [Mass/Vol] 100 mg/dL Normal 70-100 [facility] Comment on above: Performed By: #### C RP2, ESR, HEMDF, BMP3 ####[id number] [place], [place] Urea nitrogen [Mass/Vol] 18 mg/dL High 7-17 [facility] Comment on above: Performed By: #### C RP2, ESR, HEMDF, BMP3 ####[facility] [place] [address] Creatinine [Mass/Vol] 0.73 mg/dL Normal 0.52-1.25 [facility] Comment on above: Performed By: #### C RP2, ESR, HEMDF, BMP3 ####[facility] [employer] [address] [place], [place] eGFR OTHER > 90.0 Normal >60 [facility] Comment on above: Result Comment: KDIG [...] By: #### C RP2, ESR, HEMDF, BMP3 ####[facility] [place], [place] GFR/1.73 sq M.predicted among blacks MDRD (S/P/Bld) [Vol rate/Area] mL/min/{1.73_m2} Normal >60 [facility] Comment on above: Performed By: #### C RP2, ESR, HEMDF, BMP3 ####[facility] [place], [place] Potassium [Moles/Vol] 3.7 mmol/L Normal 3.5-5.1 [facility] Comment on above: Performed By: #### C RP2, ESR, HEMDF, BMP3 ####[facility] [employer] [address] [place], [place] Chloride [Moles/Vol] 106 mmol/L Normal 98-107 [facility] Comment on above: Performed By: #### C RP2, ESR, HEMDF, BMP3 ####[facility] [place] [address] Sodium [Moles/Vol] 139 mmol/L Normal 135-145 [facility] Comment on above: Performed By: #### C RP2, ESR, HEMDF, BMP3 ####[facility] [place] [address] Anion gap [Moles/Vol] 6 mmol/L 3 - 13 mmol/L [facility] Calcium [Mass/Vol] 8.8 mg/dL 8.4 - 10. 4 mg/dL [facility] Chloride [Moles/Vol] 106 mmol/L 98 - 10 7 mmol/L [facility] CO2 [Moles/Vol] 27 mmol/L 22 - 30 mmol/L [facility] Creatinine [Mass/Vol] 0.73 mg/dL 0.52 - 1.25 mg/dL [facility] eGFR mL/min 60 - P INF mL/min [facility] EGFR IF NonAfrican [place]err[place] mL/min 60 - PINF mL/min [facility] Comment on above: KDIGO guidelines pro [...] 2021 Basophil percentage 25-50 SEEN /hpf 0-5 [facility] Work Phone: Chloride [Moles/Vol] 106 mmol/L 98-[address] [facility] Work Phone: Glucose [Mass/Vol] 93 mg/dL 74-106 [facility] Work Phone: Potassium [Moles/Vol] 3.5 mmol/L 3.5-5.1 [facility] Work Phone: Sodium [Moles/Vol] 140 mmol/L 136-145 [facility] Work Phone: WBC (Bld) [#/Vol] 9.6 10*3/uL 4.4-11.0 [facility] Work Phone: Bilirubin Test strip Ql (U)o n 12-22-2021 Bilirubin Ql (U) Negative Negative [facility] Work Phone: Blood erythrocytes count (nu mber/volume)on 12-22-2021 RBC (Bld) [#/Vol] 4.34 10*6/uL 4.6-6.2 [facility] Work Phone: Blood hemoglobin measurement (mass/volume)on 12-22-2021 Hemoglobin (Bld) [Mass/Vol] 11.5 g/dL 13.0-16.5 [facility] Work Phone: Blood platelet mean volumeon 12-22-2021 Platelet mean volume (Bld) [Entitic vol] 10.8 fL 6.2-12.0 [facility] Work Phone: C-Reactive Proteinon 022 CRP [Mass/Vol] 27.2 mg/L High 0.0-9.9 [facility] Comment on above: Result Comment: . Performed By: #### C RP2, ESR, HEMDF, BMP3 ####[id number] [id number] [employer] [place] [address] CRP [Mass/Vol] 27.2 mg/L High 0 - 9.9 mg/L [facility] Comment on above: . CBC with Auto [...] 10*3/uL [facility] Test Performed by [facility], [address] [place] [id number] [facility] COVID-19, Flu A/B, and RSV C omboon 12-22-2021 Influenza A by PCR Not detected [facility] A Influenza B by PCR Not detected [facility] A RSV PCR Not Detected. Expected Result: Not Detected _ Method: Real-time, RT-PCR This assay was developed by [employer] and distributed under an Emergency Use Authorization (EUA) granted by the FDA for the qualitative detection of nucleic acids from SARS-CoV-2, Influenza A, Influenza B, and Respiratory Syncytial Virus. Provider and patient fact sheets can be found at https://www.fda.gov/media /360165/download and https://www.fda.gov/media /225248/download. [facility] SARS-CoV-2 (COVID-19) RNA MEGAN+probe Ql (Unsp spec) Not detected [facility] Test Performed by [address] [address] [facility] CR Foot Complete 3+ Views Le fton 12-22-2021 CR Foot Complete 3+ Views Left Patient Name: ANDREW SIFUENTES Diagnostic Radiology ACCESSION EXAM DATE/TIME PROCEDURE ORDERING PROVIDER [id number] 12/22/2021 00:09 EDT CR Foot Complete 3+ SANDY HIDALGO, TRAVIS Views Left CPT code 46227 Reason For Exam (CR Foot Complete 3+ [...] Transcribed Date and Time: 12/22/2021 0:21 Normal [facility] Calcium oxalate crystals det ection in urine sediment by light microscopyon 12-22-2021 Calcium oxalate crystals LM Ql (Urine sed) 1+ /hpf [facility] Work Phone: Determination of erythrocyte mean corpuscular volume (MCV)on 12-22-2021 MCV (RBC) [Entitic vol] 84.3 fL 80-94 [facility] Work Phone: ED Provider Noteon 2 [...] leg for a while. According to EMS [facility] staff completed x-ray of the lower extremity and there was concern for osteomyelitis hence transferring patient to the hospital. Patient states this time the wounds on the left lower extremity for extended period of time. He denies fevers or chills. Patient states [facility] staff have been taking care of the wound for him. Focused exam: Blood pressure 108/67, pulse 77, temperature 97.9 ?F (36.6 ?C), temperature source Oral, resp. rate 16, height 5' 9" (1.753 m), weight 79.4 kg (175 lb), SpO2 96 %. [id number] in no acute distress. Alert and oriented [...] [employer] Sharon Olivia MD 12/22/21 [address] [facility] ED Provider Note [facility] EMERGENCY DEPT EMERGENCY DEPARTMENT ENCOUNTER Pt Name: Andrew Sifuentes Birthdate 1950 Date of evaluation: 12/21/2021 Provider: SANIA Lou CHIEF COMPLAINT Chief Complaint Patient presents with [facility]omyelitis [facility] did [facility] on left lower leg and and have concerns for possible osteomyelitis A&Ox2 to self and place, stated year 2022 preside Miss martini HISTORY OF PRESENT ILLNESS (Location/Symptom, Timing/Onset, Context/Setting, Quality,Duration, Modifying Factors, Severity) Note limiting factors. 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 Tenderness: (more content not included)... Normal [facility] Hematocrit Auto (Bld) [Volum e fraction]on 12-22-2021 Hematocrit (Bld) [Volume fraction] 36.6 % 40-54 [facility] Work Phone: Hemogram w/ Autodiffon 12-22 Abs Baso Cnt 0.1 10*3/uL Normal 0.0-0.2 [facility] Comment on above: Performed By: #### C RP2, ESR, HEMDF, BMP3 ####[id number] [id number] [place] [address] Abs Neutrophile Cnt 5.9 10*3/uL Normal 1.8-7.0 [facility] Comment on above: Performed By: #### C RP2, ESR, HEMDF, BMP3 ####[address] [address] Basophils/100 WBC (Bld) 0.7 % Normal 0.0-2.0 [facility] Comment on above: Performed By: #### C RP2, ESR, HEMDF, BMP3 ####[address] [address] Eosinophils (Bld) [#/Vol] 0.2 10*3/uL Normal 0.0-0.5 [facility] Comment on above: Performed By: #### C RP2, ESR, HEMDF, BMP3 ####[address] [address] Eosinophils/100 WBC (Bld) 2.3 % Normal 1.0-6.0 [facility] Comment on above: Performed By: #### C RP2, ESR, HEMDF, BMP3 ####[address] Erythrocyte distribution width (RBC) [Ratio] 17.5 % High 11.5-14.5 [facility] Comment on above: Performed By: #### C RP2, ESR, HEMDF, BMP3 ####[address] [address] Granulocytes/100 WBC (Bld) 57.8 % Normal 40.0-80.0 [facility] Comment on above: Performed By: #### C RP2, ESR, HEMDF, BMP3 ####[address] [address] Hematocrit (Bld) [Volume fraction] 33.3 % Low 40.0-52.0 [facility] Comment on above: Performed By: #### C RP2, ESR, HEMDF, BMP3 ####[address] [address] Hemoglobin (Bld) [Mass/Vol] 11.0 g/dL Low 13.0-18.0 [facility] Comment on above: Performed By: #### C RP2, ESR, HEMDF, BMP3 ####[address] Lymphocytes (Bld) [#/Vol] 3.3 10*3/uL Normal 1.0-4.3 [facility] Comment on above: Performed By: #### C RP2, ESR, HEMDF, BMP3 ####[address] Lymphocytes/100 WBC (Bld) 33.0 % Normal 20.0-40.0 [facility] Comment on above: Performed By: #### C RP2, ESR, HEMDF, BMP3 ####[address] MCH (RBC) [Entitic mass] 26.5 pg Normal 26.0-34.0 [facility] Comment on above: Performed By: #### C RP2, ESR, HEMDF, BMP3 ####[address] MCHC 33.1 % Normal 32.0-36.0 [facility] Comment on above: Performed By: #### C RP2, ESR, HEMDF, BMP3 ####[address] MCV (RBC) [Entitic vol] 80.2 fL Normal 80.0-98.0 [facility] Comment on above: Performed By: #### C RP2, ESR, HEMDF, BMP3 ####[address] Monocytes (Bld) [#/Vol] 0.6 10*3/uL Normal 0.0-0.8 [facility] Comment on above: Performed By: #### C RP2, ESR, HEMDF, BMP3 ####[address] Monocytes/100 WBC (Bld) 6.2 % Normal 2.0-10.0 [facility] Comment on above: Performed By: #### C RP2, ESR, HEMDF, BMP3 ####[facility] [place], [place] Platelet mean volume (Bld) [Entitic vol] 8.0 fL Normal 7.4-12.4 [facility] Comment on above: Result Comment: MPV is a calculated measurement using platelet volume ratio. Performed By: #### C RP2, ESR, HEMDF, BMP3 ####[facility] [employer] [id number] [place], [place] Platelets (Bld) [#/Vol] 368 10*3/uL Normal 140-440 [facility] Comment on above: Performed By: #### C RP2, ESR, HEMDF, BMP3 ####[facility] [employer] [id number] [place], [place] RBC (Bld) [#/Vol] 4.15 10*6/uL Low 4.40-5.90 [facility] Comment on above: Performed By: #### C RP2, ESR, HEMDF, BMP3 ####[facility] [id number] [place], [place] WBC (Bld) [#/Vol] 10.1 10*3/uL Normal 3.6-10.7 [facility] Comment on above: Performed By: #### C RP2, ESR, HEMDF, BMP3 ####[facility] [id number] [place], [place] Ketones Test strip Ql (U)on 12-22-2021 Ketones Ql (U) Negative Negative [facility] Work Phone: Laboratory - Chemistry and C hemistry - challengeon 12-22-2021 CO2 [Moles/Vol] 27.0 mmol/L 21.0-32.0 [facility] Work Phone: Urea nitrogen/Creatinine [Mass ratio] 22.5 mg/mg 10-20 [facility] Work Phone: Laboratory - Hematology and Cell countson 12-22-2021 Erythrocyte distribution width (RBC) [Entitic vol] 49.1 fL 35.1-43.9 [facility] Work Phone: Erythrocyte distribution width (RBC) [Ratio] 16.1 % 11.6-14.6 [facility] Work Phone: MCH (RBC) [Entitic mass] 26.5 pg 27.0-32.0 [facility] Work Phone: MCHC Auto (RBC) [Mass/Vol]on 12-22-2021 MCHC (RBC) [Mass/Vol] 31.4 g/dL 32-36 [facility] Work Phone: Mucus LM Ql (Urine sed)on Mucus Ql (Urine sed) 0 SEEN /hpf [facility] Work Phone: Nitrite Test strip Ql (U)on 12-22-2021 Nitrite Ql (U) Positive Negative [facility] Work Phone: No Panel Informationon 12-22 Estimated GFR (MDRD) Amer 152 mL/min >60 [facility] Work Phone: Comment on above: GFR Calc Estimated GFR (MDRD) Non-Af Amer 125 mL/min >60 [facility] Work Phone: Comment on above: Non- GFR Calc Interpretation and review of laboratory results Abnormal [facility] Test Performed by [facility], [address] [place] [id number] [place] [address] LAB [facility] Platelets bldon 12-22-2021 Platelets (Bld) [#/Vol] 317 10*3/uL 150-450 [facility] Work Phone: Protein Test strip Ql (U)on 12-22-2021 Protein Ql (U) 30 mg/dl Negative [facility] Work Phone: SARS-CoV-2, Flu A/B and RSVo n 12-22-2021 SARS-CoV-2 (COVID-19) RNA MEGAN+probe Ql (Unsp spec) SARS-CoV-2 --> Status: F Not Detected. Flu A PCR --> Status: F Not Detected. Flu B PCR --> Status: F Not Detected. RSV PCR --> Status: F Not Detected. Expected Result: Not Detected _ Method: Real-time, RT-PCR This assay was developed by [employer] and distributed under an Emergency Use Authorization (EUA) granted by the FDA for the qualitative detection of nucleic acids from SARS-CoV-2, Influenza A, Influenza B, and Respiratory Syncytial Virus. Provider and patient fact sheets can be found at https://www.fda.gov/media /155811/download and https://www.fda.gov/media /938317/download. Expected Result: Not Detected _ Method: Real-time, RT-PCR This assay was developed by [employer] and distributed under an Emergency Use Authorization (EUA) granted by the FDA for the qualitative detection of nucleic acids from SARS-CoV-2, Influenza A, Influenza B, and Respiratory Syncytial Virus. Provider and patient fact sheets can be found at https://www.fda.gov/media /092792/download and https://www.fda.gov/media /944379/download. Normal [facility] Comment on above: Performed By: #### C VFLR ####[facility] [place] [address], [address] Sed Rateon 12-22-2021 Sed Rate 48 mm/h High 0-10 [facility] Comment on above: Performed By: #### C RP2, ESR, HEMDF, BMP3 ####[address] [place] [address] Sedimentation Rateon 022 Interpretation and review of laboratory results Abnormal [facility] Sed Rate 48 mm/h High 0 - 10 mm/h [facility] Test Performed by [facility], [address] [place] [address] [facility] Serum or plasma calcium oral urement (mass/volume)on 12-22-2021 Calcium [Mass/Vol] 8.6 mg/dL 8.5-10.1 [facility] Work Phone: Serum or plasma creatinine m easurement (mass/volume)on 12-22-2021 Creatinine [Mass/Vol] 0.67 mg/dL 0.70-1.30 [facility] Work Phone: Comment on above: The validity of the calculated GFR & GFRAA in patients over 70 years has not been determined. Clinical correlation is essential. Serum or plasma urea nitroge n measurement (mass/volume)on 12-22-2021 Urea nitrogen [Mass/Vol] 15 mg/dL -18 [facility] Work Phone: Squamous epithelial cells de tection in urine sediment by light microscopyon 12-22-2021 Epithelial cells.squamous LM Ql (Urine sed) 0-5 SEEN /hpf 0-5 [facility] Work Phone: Thin prep Papanicolaou smear with manual screeningon 12-22-2021 Thin prep Papanicolaou smear with manual screening 7 5-15 [facility] Work Phone: Urine blood detectionon 12-05 RBC Ql (U) 150 /ul Negative [facility] Work Phone: RBC Ql (U) 10-25 SEEN /hpf 0-5 [facility] Work Phone: Urine clarityon 12-22-2021 Clarity (U) Sl. Cloudy Clear [facility] Work Phone: Urine color determinationon 12-22-2021 Color (U) Yellow Yellow [facility] Work Phone: Urine glucose detectionon Glucose Ql (U) Normal mg/dl Normal [facility] Work Phone: Urine leukocyte esterase det ection by dipstickon 12-22-2021 Leukocyte esterase Test strip Ql (U) 500 /ul Negative [facility] Work Phone: Urine pHon 12-22-2021 pH (U) 6.0 [pH] 5.0 - 8.0 [facility] Work Phone: Urine sediment bacteria coun t by microscopy (number/high power field)on 12-22-2021 Bacteria LM.HPF (Urine sed) [#/Area] 2 /[HPF] None Seen [facility] Work Phone: Urine specific gravity measu rementon 12-22-2021 Specific gravity (U) [Rel density] 1.020 1.002-1.030 [facility] Work Phone: Urobilinogen Auto test strip Ql (U)on 12-22-2021 Urobilinogen Ql (U) Normal mg/dl Normal [facility] Work Phone: XR FOOT LEFT (MIN 3 VIEWS)on 12-22-2021 Patient Name: ANDREW SIFUENTES Diagnostic Radiology ACCESSION EXAM DATE/TIME PROCEDURE ORDERING PROVIDER [id number] 12/22/2021 00:09 EDT CR Foot Complete 3+ SANDY HIDALGO, TRAVIS Views Left CPT code 40059 Reason For Exam (CR Foot Complete 3+ [...] JEFFREY Transcribed Date and Time: 12/22/2021 0:21 [facility] Albert Solano MD - 12/22/2021 Patient Name: ANDREW SIFUENTES Diagnostic Radiology ACCESSION EXAM DATE/TIME PROCEDURE ORDERING PROVIDER [id number] 12/22/2021 00:09 EDT CR Foot Complete 3+ SANDY HIDALGO, TRAVIS Views Left CPT code 93802 Reason For Exam (CR Foot Complete 3+ [...] Time: 12/22/2021 0:21 [facility] Work Phone: Radiology Study observation (narrative) [facility] Work Phone: XR FOOT LEFT (MIN 3 VIEWS)Or dered By: Albert Solano on 12-22-2021 [facility] Work Phone: Basophil percentageon 2021 Chloride [Moles/Vol] 103 mmol/L 98-[address] [facility] Work Phone: Glucose [Mass/Vol] 92 mg/dL 74-106 [facility] Work Phone: Potassium [Moles/Vol] 3.5 mmol/L 3.5-5.1 [facility] Work Phone: Sodium [Moles/Vol] 138 mmol/L 136-145 [facility] Work Phone: WBC (Bld) [#/Vol] 11.2 10*3/uL 4.4-11.0 [facility] Work Phone: Blood erythrocytes count (nu mber/volume)on 12-19-2021 RBC (Bld) [#/Vol] 4.50 10*6/uL 4.6-6.2 [facility] Work Phone: Blood hemoglobin measurement (mass/volume)on 12-19-2021 Hemoglobin (Bld) [Mass/Vol] 12.2 g/dL 13.0-16.5 [facility] Work Phone: Blood platelet mean volumeon 12-19-2021 Platelet mean volume (Bld) [Entitic vol] 11.3 fL 6.2-12.0 [facility] Work Phone: Determination of erythrocyte mean corpuscular volume (MCV)on 12-19-2021 MCV (RBC) [Entitic vol] 85.6 fL 80-94 [facility] Work Phone: Hematocrit Auto (Bld) [Volum e fraction]on 12-19-2021 Hematocrit (Bld) [Volume fraction] 38.5 % 40-54 [facility] Work Phone: Laboratory - Chemistry and C hemistry - challengeon 12-19-2021 CO2 [Moles/Vol] 30.0 mmol/L 21.0-32.0 [facility] Work Phone: Urea nitrogen/Creatinine [Mass ratio] 27.1 mg/mg 10-20 [facility] Work Phone: Laboratory - Hematology and Cell countson 12-19-2021 Erythrocyte distribution width (RBC) [Entitic vol] 50.5 fL 35.1-43.9 [facility] Work Phone: Erythrocyte distribution width (RBC) [Ratio] 16.0 % 11.6-14.6 [facility] Work Phone: MCH (RBC) [Entitic mass] 27.1 pg 27.0-32.0 [facility] Work Phone: MCHC Auto (RBC) [Mass/Vol]on 12-19-2021 MCHC (RBC) [Mass/Vol] 31.7 g/dL 32-36 [facility] Work Phone: No Panel Informationon 12-19 Estimated GFR (MDRD) Amer 153 mL/min >60 [facility] Work Phone: Comment on above: GFR Calc Estimated GFR (MDRD) Non-Af Amer 126 mL/min >60 [facility] Work Phone: Comment on above: Non- GFR Calc Platelets bldon 12-19-2021 Platelets (Bld) [#/Vol] 363 10*3/uL 150-450 [facility] Work Phone: Serum or plasma calcium oral urement (mass/volume)on 12-19-2021 Calcium [Mass/Vol] 9.5 mg/dL 8.5-10.1 [facility] Work Phone: Serum or plasma creatinine m easurement (mass/volume)on 12-19-2021 Creatinine [Mass/Vol] 0.66 mg/dL 0.70-1.30 [facility] Work Phone: Comment on above: The validity of the calculated GFR & GFRAA in patients over 70 years has not been determined. Clinical correlation is essential. Serum or plasma urea nitroge n measurement (mass/volume)on 12-19-2021 Urea nitrogen [Mass/Vol] 18 mg/dL 7-18 [facility] Work Phone: Thin prep Papanicolaou smear with manual screeningon 12-19-2021 Thin prep Papanicolaou smear with manual screening 5 5-15 [facility] Work Phone: Laboratory - Coagulationon 0 12-12-2021 INR Coag (Bld) [Relative time] 2.0 {INR} [facility] Work Phone: Comment on above: Critical Value > 4.0 Whole blood prothrombin time on 12-12-2021 PT Coag (Bld) [Time] 23.9 s 11.7-14.9 [facility] Work Phone: ANES POSTPROC EVALon 022 ANES POSTPROC EVAL Normal [facility] Laboratory - Coagulationon 0 12-08-2021 INR Coag (Bld) [Relative time] 1.8 {INR} [facility] Work Phone: Comment on above: Critical Value > 4.0 Whole blood prothrombin time on 12-08-2021 PT Coag (Bld) [Time] 21.0 s 11.7-14.9 [facility] Work Phone: Absolute lymphocyte counton 12-05-2021 Lymphocytes Auto (Unsp spec) [#/Vol] 2.97 10*3/uL 0.83-4.51 [facility] Work Phone: Basophil percentageon 2021 Basophils/100 WBC (Bld) 0.6 % 0-1 [facility] Work Phone: Chloride [Moles/Vol] 106 mmol/L 98-107 [facility] Work Phone: Eosinophils/100 WBC (Bld) 2.3 % 0-5 [facility] Work Phone: Glucose [Mass/Vol] 107 mg/dL 74-106 [facility] Work Phone: Comment on above: Fasting Glucose resu lt from 100 to 125 mg/dL suggests IMPAIRED HOMEOSTASIS per A.D.A. criteria. Neutrophils (Bld) [#/Vol] 5.6 10*3/uL 2.0-7.7 [facility] Work Phone: [phone] Neutrophils/100 WBC (Bld) 60.2 % 47-70 [facility] Work Phone: Potassium [Moles/Vol] 3.4 mmol/L 3.5-5.1 [facility] Work Phone: Sodium [Moles/Vol] 139 mmol/L 136-145 [facility] Work Phone: [phone] WBC (Bld) [#/Vol] 9.3 10*3/uL 4.4-11.0 [facility] Work Phone: Blood erythrocytes count (nu mber/volume)on 12-05-2021 RBC (Bld) [#/Vol] 4.49 10*6/uL 4.6-6.2 [facility] Work Phone: Blood hemoglobin measurement (mass/volume)on 12-05-2021 Hemoglobin (Bld) [Mass/Vol] 12.1 g/dL 13.0-16.5 [facility] Work Phone: Blood lymphocytes/100 leukoc yteson 12-05-2021 Lymphocytes/100 WBC (Bld) 32.0 % 19-41 [facility] Work Phone: Blood monocytes/100 leukocyt eson 12-05-2021 Monocytes/100 WBC (Bld) 4.7 % 0-10 [facility] Work Phone: Blood platelet mean volumeon 12-05-2021 Platelet mean volume (Bld) [Entitic vol] 10.8 fL 6.2-12.0 [facility] Work Phone: Determination of erythrocyte mean corpuscular volume (MCV)on 12-05-2021 MCV (RBC) [Entitic vol] 84.9 fL 80-94 [facility] Work Phone: Hematocrit Auto (Bld) [Volum e fraction]on 12-05-2021 Hematocrit (Bld) [Volume fraction] 38.1 % 40-54 [facility] Work Phone: INR in Blood by Coagulation assayon 12-05-2021 INR Coag (Bld) [Relative time] 1.8 {INR} [facility] Work Phone: Laboratory - Chemistry and C hemistry - challengeon 12-05-2021 CO2 [Moles/Vol] 29.0 mmol/L 21.0-32.0 [facility] Work Phone: Urea nitrogen/Creatinine [Mass ratio] 25.4 mg/mg 10-20 [facility] Work Phone: Laboratory - Coagulationon 0 12-05-2021 PT Coag (PPP) [Time] 20.5 s 11.7-14.9 [facility] Work Phone: Laboratory - Hematology and Cell countson 12-05-2021 Erythrocyte distribution width (RBC) [Entitic vol] 48.5 fL 35.1-43.9 [facility] Work Phone: Erythrocyte distribution width (RBC) [Ratio] 15.7 % 11.6-14.6 [facility] Work Phone: Immature granulocytes/100 WBC (Bld) 0.200 % 0.0-0.9 [facility] Work Phone: Comment on above: IG% - Immature Granu locytes (promyelocytes, myelocytes and metamyelocytes) > 1% indicates that a LEFT SHIFT is Present. MCH (RBC) [Entitic mass] 26.9 pg 27.0-32.0 [facility] Work Phone: Nucleated RBC/100 WBC (Bld) [Ratio] 0 % 0-5 [facility] Work Phone: MCHC Auto (RBC) [Mass/Vol]on 12-05-2021 MCHC (RBC) [Mass/Vol] 31.8 g/dL 32-36 [facility] Work Phone: No Panel Informationon 12-05 Estimated GFR (MDRD) Amer 133 mL/min >60 [facility] Work Phone: Comment on above: GFR Calc Estimated GFR (MDRD) Non-Af Amer 110 mL/min >60 [facility] Work Phone: Comment on above: Non- GFR Calc Platelets bldon 12-05-2021 Platelets (Bld) [#/Vol] 363 10*3/uL 150-450 [facility] Work Phone: Serum or plasma calcium oral urement (mass/volume)on 12-05-2021 Calcium [Mass/Vol] 9.4 mg/dL 8.5-10.1 [facility] Work Phone: Serum or plasma creatinine m easurement (mass/volume)on 12-05-2021 Creatinine [Mass/Vol] 0.75 mg/dL 0.70-1.30 [facility] Work Phone: Comment on above: The validity of the calculated GFR & GFRAA in patients over 70 years has not been determined. Clinical correlation is essential. Serum or plasma urea nitroge n measurement (mass/volume)on 12-05-2021 Urea nitrogen [Mass/Vol] 19 mg/dL 7-18 [facility] Work Phone: Thin prep Papanicolaou smear with manual screeningon 12-05-2021 Thin prep Papanicolaou smear with manual screening 4 5-15 [facility] Work Phone: Basophil percentageon 2021 Basophil percentage 0 SEEN /hpf 0-5 [facility] Work Phone: Chloride [Moles/Vol] 104 mmol/L 98-107 [facility] Work Phone: Glucose [Mass/Vol] 90 mg/dL 74-106 [facility] Work Phone: Potassium [Moles/Vol] 3.7 mmol/L 3.5-5.1 [facility] Work Phone: Comment on above: Slight Hemolysis, Re sult may be falsely increased. Sodium [Moles/Vol] 138 mmol/L 136-145 [facility] Work Phone: WBC (Bld) [#/Vol] 10.7 10*3/uL 4.4-11.0 [facility] Work Phone: Bilirubin Test strip Ql (U)o n 12-01-2021 Bilirubin Ql (U) Negative Negative [facility] Work Phone: Blood erythrocytes count (nu mber/volume)on 12-01-2021 RBC (Bld) [#/Vol] 4.33 10*6/uL 4.6-6.2 [facility] Work Phone: Blood hemoglobin measurement (mass/volume)on 12-01-2021 Hemoglobin (Bld) [Mass/Vol] 11.6 g/dL 13.0-16.5 [facility] Work Phone: Blood platelet mean volumeon 12-01-2021 Platelet mean volume (Bld) [Entitic vol] 11.2 fL 6.2-12.0 [facility] Work Phone: Determination of erythrocyte mean corpuscular volume (MCV)on 12-01-2021 MCV (RBC) [Entitic vol] 85.2 fL 80-94 [facility] Work Phone: Hematocrit Auto (Bld) [Volum e fraction]on 12-01-2021 Hematocrit (Bld) [Volume fraction] 36.9 % 40-54 [facility] Work Phone: Ketones Test strip Ql (U)on 12-01-2021 Ketones Ql (U) Negative Negative [facility] Work Phone: Laboratory - Chemistry and C hemistry - challengeon 12-01-2021 CO2 [Moles/Vol] 27.0 mmol/L 21.0-32.0 [facility] Work Phone: Urea nitrogen/Creatinine [Mass ratio] 24.0 mg/mg 10-20 [facility] Work Phone: Laboratory - Coagulationon 0 12-01-2021 INR Coag (Bld) [Relative time] 1.6 {INR} [facility] Work Phone: Comment on above: Critical Value > 4.0 Laboratory - Hematology and Cell countson 12-01-2021 Erythrocyte distribution width (RBC) [Entitic vol] 47.9 fL 35.1-43.9 [facility] Work Phone: Erythrocyte distribution width (RBC) [Ratio] 15.5 % 11.6-14.6 [facility] Work Phone: MCH (RBC) [Entitic mass] 26.8 pg 27.0-32.0 [facility] Work Phone: MCHC Auto (RBC) [Mass/Vol]on 12-01-2021 MCHC (RBC) [Mass/Vol] 31.4 g/dL 32-36 [facility] Work Phone: Mucus LM Ql (Urine sed)on Mucus Ql (Urine sed) 0 SEEN /hpf [facility] Work Phone: Nitrite Test strip Ql (U)on 12-01-2021 Nitrite Ql (U) Negative Negative [facility] Work Phone: No Panel Informationon 12-01 Estimated GFR (MDRD) Amer 133 mL/min >60 [facility] Work Phone: Comment on above: GFR Calc Estimated GFR (MDRD) Non-Af Amer 110 mL/min >60 [facility] Work Phone: Comment on above: Non- GFR Calc Platelets bldon 12-01-2021 Platelets (Bld) [#/Vol] 336 10*3/uL 150-450 [facility] Work Phone: Protein Test strip Ql (U)on 12-01-2021 Protein Ql (U) 30 mg/dl Negative [facility] Work Phone: Serum or plasma calcium oral urement (mass/volume)on 12-01-2021 Calcium [Mass/Vol] 9.4 mg/dL 8.5-10.1 [facility] Work Phone: Serum or plasma creatinine m easurement (mass/volume)on 12-01-2021 Creatinine [Mass/Vol] 0.75 mg/dL 0.70-1.30 [facility] Work Phone: Comment on above: The validity of the calculated GFR & GFRAA in patients over 70 years has not been determined. Clinical correlation is essential. Serum or plasma urea nitroge n measurement (mass/volume)on 12-01-2021 Urea nitrogen [Mass/Vol] 18 mg/dL 7-18 [facility] Work Phone: Squamous epithelial cells de tection in urine sediment by light microscopyon 12-01-2021 Epithelial cells.squamous LM Ql (Urine sed) 0-5 SEEN /hpf 0-5 [facility] Work Phone: Thin prep Papanicolaou smear with manual screeningon 12-01-2021 Thin prep Papanicolaou smear with manual screening 7 5-15 [facility] Work Phone: Urine blood detectionon 11-05 RBC Ql (U) Negative Negative [facility] Work Phone: RBC Ql (U) 0 SEEN /hpf 0-5 [facility] Work Phone: Urine clarityon 12-01-2021 Clarity (U) Clear Clear [facility] Work Phone: Urine color determinationon 12-01-2021 Color (U) Yellow Yellow [facility] Work Phone: Urine glucose detectionon Glucose Ql (U) 50 mg/dl Normal [facility] Work Phone: Urine leukocyte esterase det ection by dipstickon 12-01-2021 Leukocyte esterase Test strip Ql (U) Negative Negative [facility] Work Phone: Urine pHon 12-01-2021 pH (U) 6.0 [pH] 5.0 - 8.0 [facility] Work Phone: Urine sediment bacteria coun t by microscopy (number/high power field)on 12-01-2021 Bacteria LM.HPF (Urine sed) [#/Area] 0 /[HPF] None Seen [facility] Work Phone: Urine sediment yeast count b y microscopy (number/high powered field)on 12-01-2021 Yeast LM.HPF (Urine sed) [#/Area] 2 /[HPF] None Seen [facility] Work Phone: Urine specific gravity measu rementon 12-01-2021 Specific gravity (U) [Rel density] 1.010 1.002-1.030 [facility] Work Phone: Urobilinogen Auto test strip Ql (U)on 12-01-2021 Urobilinogen Ql (U) Normal mg/dl Normal [facility] Work Phone: Whole blood prothrombin time on 12-01-2021 PT Coag (Bld) [Time] 19.8 s 11.7-14.9 [facility] Work Phone: Laboratory - Coagulationon 0 11-28-2021 INR Coag (Bld) [Relative time] 1.6 {INR} [facility] Work Phone: Comment on above: Critical Value > 4.0 Whole blood prothrombin time on 11-28-2021 PT Coag (Bld) [Time] 18.8 s 11.7-14.9 [facility] Work Phone: INR in Blood by Coagulation assayon 11-23-2021 INR Coag (Bld) [Relative time] 2.7 {INR} [facility] Work Phone: Laboratory - Coagulationon 0 11-23-2021 PT Coag (PPP) [Time] 28.0 s 11.7-14.9 [facility] Work Phone: Laboratory - Coagulationon 0 11-22-2021 INR Coag (Bld) [Relative time] 3.8 {INR} [facility] Work Phone: Comment on above: Critical Value > 4.0 Whole blood prothrombin time on 11-22-2021 PT Coag (Bld) [Time] 42.8 s 11.7-14.9 [facility] Work Phone: INR in Blood by Coagulation assayon 11-21-2021 INR Coag (Bld) [Relative time] 3.9 {INR} [facility] Work Phone: Laboratory - Coagulationon 0 11-21-2021 PT Coag (PPP) [Time] 37.7 s 11.7-14.9 [facility] Work Phone: Whole blood prothrombin time on 11-21-2021 PT Coag (Bld) [Time] 45.5 s 11.7-14.9 [facility] Work Phone: INR in Blood by Coagulation assayon 11-14-2021 INR Coag (Bld) [Relative time] 3.1 {INR} [facility] Work Phone: Laboratory - Coagulationon 0 11-14-2021 PT Coag (PPP) [Time] 31.4 s 11.7-14.9 [facility] Work Phone: Laboratory - Coagulationon 0 11-08-2021 INR Coag (Bld) [Relative time] 2.5 {INR} [facility] Work Phone: Comment on above: Critical Value > 4.0 Whole blood prothrombin time on 11-08-2021 PT Coag (Bld) [Time] 29.0 s 11.7-14.9 [facility] Work Phone: Basophil percentageon 2021 Chloride [Moles/Vol] 106 mmol/L 98-107 [facility] Work Phone: Glucose [Mass/Vol] 100 mg/dL 74-106 [facility] Work Phone: Comment on above: Fasting Glucose resu lt from 100 to 125 mg/dL suggests IMPAIRED HOMEOSTASIS per A.D.A. criteria. Potassium [Moles/Vol] 3.7 mmol/L 3.5-5.1 [facility] Work Phone: Sodium [Moles/Vol] 140 mmol/L 136-145 [facility] Work Phone: WBC (Bld) [#/Vol] 8.8 10*3/uL 4.4-11.0 [facility] Work Phone: Blood erythrocytes count (nu mber/volume)on 11-04-2021 RBC (Bld) [#/Vol] 4.05 10*6/uL 4.6-6.2 [facility] Work Phone: Blood hemoglobin measurement (mass/volume)on 11-04-2021 Hemoglobin (Bld) [Mass/Vol] 11.1 g/dL 13.0-16.5 [facility] Work Phone: Blood platelet mean volumeon 11-04-2021 Platelet mean volume (Bld) [Entitic vol] 10.8 fL 6.2-12.0 [facility] Work Phone: Determination of erythrocyte mean corpuscular volume (MCV)on 11-04-2021 MCV (RBC) [Entitic vol] 86.9 fL 80-94 [facility] Work Phone: Hematocrit Auto (Bld) [Volum e fraction]on 11-04-2021 Hematocrit (Bld) [Volume fraction] 35.2 % 40-54 [facility] Work Phone: INR in Blood by Coagulation assayon 11-04-2021 INR Coag (Bld) [Relative time] 1.8 {INR} [facility] Work Phone: Laboratory - Chemistry and C hemistry - challengeon 11-04-2021 CO2 [Moles/Vol] 26.0 mmol/L 21.0-32.0 [facility] Work Phone: Urea nitrogen/Creatinine [Mass ratio] 18.3 mg/mg 10-20 [facility] Work Phone: Laboratory - Coagulationon 0 11-04-2021 PT Coag (PPP) [Time] 20.4 s 11.7-14.9 [facility] Work Phone: Laboratory - Hematology and Cell countson 11-04-2021 Erythrocyte distribution width (RBC) [Entitic vol] 48.1 fL 35.1-43.9 [facility] Work Phone: Erythrocyte distribution width (RBC) [Ratio] 15.0 % 11.6-14.6 [facility] Work Phone: MCH (RBC) [Entitic mass] 27.4 pg 27.0-32.0 [facility] Work Phone: MCHC Auto (RBC) [Mass/Vol]on 11-04-2021 MCHC (RBC) [Mass/Vol] 31.5 g/dL 32-36 [facility] Work Phone: No Panel Informationon 11-04 D-Dimer Quantitative (PE/DVT) 0.56 FEU/ug/m 0.27-0.49 [facility] Work Phone: Comment on above: D-Dimer ELEVATED (>0 .49): Additional studies and clinicalassessments are indicated to conclude diagnosis of:Deep Vein Thrombosis (DVT) or Pulmonary Embolism (PE) Estimated GFR (MDRD) Amer 155 mL/min >60 [facility] Work Phone: Comment on above: GFR Calc Estimated GFR (MDRD) Non-Af Amer 128 mL/min >60 [facility] Work Phone: Comment on above: Non- GFR Calc Troponin I High Sensitivity 11 pg/mL 3.0-78.0 [facility] Work Phone: Comment on above: Please Note: New [place] t Units and Gender Specific Reference Ranges. For more information see Policy Stat Procedure [place] High Sensitivity Troponin (TNIH) and attachments. Platelets bldon 11-04-2021 Platelets (Bld) [#/Vol] 364 10*3/uL 150-450 [facility] Work Phone: Serum or plasma C reactive p rotein measurement (mass/volume)on 11-04-2021 CRP [Mass/Vol] 31.90 mg/L 0.0-3.0 [facility] Work Phone: Comment on above: C-Reactive Protein ( CRP) provides useful information for thediagnosis, therapy and monitoring of inflammatory processesand associated diseases. For the evaluation of Relative Riskfor Cardiovascular Disease, a High Sensitivity CRP (HSCRP)should be ordered. Serum or plasma calcium oral urement (mass/volume)on 11-04-2021 Calcium [Mass/Vol] 9.1 mg/dL 8.5-10.1 [facility] Work Phone: Serum or plasma creatinine m easurement (mass/volume)on 11-04-2021 Creatinine [Mass/Vol] 0.66 mg/dL 0.70-1.30 [facility] Work Phone: Comment on above: The validity of the calculated GFR & GFRAA in patients over 70 years has not been determined. Clinical correlation is essential. Serum or plasma urea nitroge n measurement (mass/volume)on 11-04-2021 Urea nitrogen [Mass/Vol] 12 mg/dL 7-18 [facility] Work Phone: Thin prep Papanicolaou smear with manual screeningon 11-04-2021 Thin prep Papanicolaou smear with manual screening 8 5-15 [facility] Work Phone: Complete Urinalysison 2021 Appearance (U) Clear Normal Clear [facility] Comment on above: Result Comment: . Performed By: #### C UA2 ####[address] [place], [place] Bacteria Moderate Abnormal Negative [facility] Comment on above: Result Comment: . Performed By: #### C UA2 ####[facility] [id number] [place], [place] Bilirubin,Urine Negative Normal Negative [facility] Comment on above: Result Comment: . Performed By: #### C UA2 ####[address] [place], [place] Cast, Hyaline Negative Normal Negative [facility] Comment on above: Result Comment: . Performed By: #### C UA2 ####[address] [place], [place] Color (U) Yellow Normal Lt. Yellow [facility] Comment on above: Result Comment: . Performed By: #### C UA2 ####[id number] [place], [place] Glucose Ql (U) Normal Normal Normal (<70) [facility] Comment on above: Result Comment: . Performed By: #### C UA2 ####[address] [place], [place] Ketone,Urine Negative Normal Negative [facility] Comment on above: Result Comment: . Performed By: #### C UA2 ####[facility] [id number] [place], [place] Leukocytes,Urine Negative Normal Negative [facility] Comment on above: Result Comment: . Performed By: #### C UA2 ####[id number] [place], [place] Mucous Threads Few Normal Negative [facility] Comment on above: Result Comment: . Performed By: #### C UA2 ####[id number] [place], [place] Nitrites,Urine Negative Normal Negative [facility] Comment on above: Result Comment: . Performed By: #### C UA2 ####[id number] [place] Occult Blood,Urine 0.1 mg/dL Abnormal Negative [facility] Comment on above: Result Comment: . Performed By: #### C UA2 ####[address] [place], [place] pH,Urine 5.5 Normal 5.0-8.0 [facility] Comment on above: Result Comment: . Performed By: #### C UA2 ####[address] [place] Protein (U) [Mass/Vol] 10 mg/dL Abnormal Negative [facility] Comment on above: Result Comment: . Performed By: #### C UA2 ####[address] [place] RBC, Urine 26 - 50 Abnormal 0-2 [facility] Comment on above: Result Comment: . Performed By: #### C UA2 ####[address] [place] Specific [place],Urine 1.023 Normal 1.005 - 1.030 [facility] Comment on above: Result Comment: . Performed By: #### C UA2 ####[address] [place] Squamous Epithelial Negative Normal 3-5 [facility] Comment on above: Result Comment: . Performed By: #### C UA2 ####[address] [place] Urobilinogen,Urine Normal Normal Normal (0-1) [facility] Comment on above: Result Comment: . Performed By: #### C UA2 ####[facility] [place] [address] WBC, Urine 0 - 2 Normal 0-5 [facility] Comment on above: Result Comment: . Performed By: #### C UA2 ####[facility] [place] [address] Urinalysison 11-01-2021 Appearance (U) Clear Clear NA [...] Protein (U) [Mass/Vol] 10 mg/dL Abnormal Negative [facility] Comment on above: . RBC, UA 26-50 Abnormal 0 - 2 /[HPF] [facility] Comment on above: . Specific [place], Urine 1.023 [facility] Comment on above: . Squam Epithel, UA Negative 3 - 5 /[HPF] [facility] Comment on above: . Urobilinogen, Urine Normal Normal ( 0-1) mg/dL [facility] Comment on above: . WBC, UA 0-2 0 - 5 /[HPF] [facility] Comment on above: . Test Performed by [facility], [address] [place] [address] [facility] Basic Metabolic Panelon 10-06 Anion gap [Moles/Vol] 6 mmol/L Normal 3-13 [facility] Comment on above: Performed By: #### P T/AP, TROPN, BMP3, HEMDF #### [facility] [address] [place], [place] Calcium [Mass/Vol] 9.1 mg/dL Normal 8.4-10.4 [facility] Comment on above: Performed By: #### P T/AP, TROPN, BMP3, HEMDF #### [facility] [address] [place], [place] CO2 [Moles/Vol] 28 mmol/L Normal 22-30 [facility] Comment on above: Performed By: #### P T/AP, TROPN, BMP3, HEMDF #### [address] [place], [place] Glucose [Mass/Vol] 120 mg/dL High 70-100 [facility] Comment on above: Performed By: #### P T/AP, TROPN, BMP3, HEMDF #### [address] [address] [place], [place] Urea nitrogen [Mass/Vol] 17 mg/dL Normal 7-17 [facility] Comment on above: Performed By: #### P T/AP, TROPN, BMP3, HEMDF #### [address] [place], [place] Creatinine [Mass/Vol] 0.65 mg/dL Normal 0.52-1.25 [facility] Comment on above: Performed By: #### P T/AP, TROPN, BMP3, HEMDF #### [address] [place], [place] eGFR OTHER > 90.0 Normal >60 [facility] Comment on above: Result Comment: KDIG [...] #### P T/AP, TROPN, BMP3, HEMDF #### [address] GFR/1.73 sq M.predicted among blacks MDRD (S/P/Bld) [Vol rate/Area] mL/min/{1.73_m2} Normal >60 [facility] Comment on above: Performed By: #### P T/AP, TROPN, BMP3, HEMDF #### [address] Potassium [Moles/Vol] 3.8 mmol/L Normal 3.5-5.1 [facility] Comment on above: Performed By: #### P T/AP, TROPN, BMP3, HEMDF #### [address] Chloride [Moles/Vol] 101 mmol/L Normal 98-107 [facility] Comment on above: Performed By: #### P T/AP, TROPN, BMP3, HEMDF #### [address] Sodium [Moles/Vol] 134 mmol/L Low 135-145 [facility] Comment on above: Performed By: #### P T/AP, TROPN, BMP3, HEMDF #### [address] Anion gap [Moles/Vol] 6 mmol/L 3 - 13 mmol/L [facility] Calcium [Mass/Vol] 9.1 mg/dL 8.4 - 10. 4 mg/dL [facility] Chloride [Moles/Vol] 101 mmol/L 98 - 10 7 mmol/L [facility] CO2 [Moles/Vol] 28 mmol/L 22 - 30 mmol/L [facility] Creatinine [Mass/Vol] 0.65 mg/dL 0.52 - 1.25 mg/dL [facility] EGFR IF NonAfrican [place] >90.0 >60 mL/min [facility] Comment on above: [...] - 17 mg/dL [facility] Test Performed by [id number] [place] [address] LAB [facility] CBC with Auto Differentialon 10-31-2021 [...] 10*3/uL [facility] Test Performed by [facility], [address] [place] [id number] [place] [address] [facility] CR Abdomen APon 10-31-2021 CR Abdomen AP Patient Name: ANDREW SIFUENTES Diagnostic Radiology ACCESSION EXAM DATE/TIME PROCEDURE ORDERING PROVIDER [id number] 10/31/2021 20:36 EDT CR Abdomen [place] [id number] MARTÍNEZ CPT code 17249 Reason For Exam (CR Abdomen AP) vp emerging media shunt, 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 CHEST PORTABLE [...] Transcribed Date and Time: 10/31/2021 8:49 Normal [facility] CR Chest Portableon 11-01-19 22 CR Chest Portable [id number] Radiology ACCESSION EXAM DATE/TIME PROCEDURE ORDERING PROVIDER [id number] 10/31/2021 20:36 EDT CR Chest Portable [id number] MYRON GALINDO CPT code 88883 Reason For Exam (CR Chest Portable) AMS [...] Transcribed Date and Time: 10/31/2021 8:49 Normal [facility] CT HEAD WO CONTRASTon 2021 [id number] Computed Tomography ACCESSION EXAM DATE/TIME PROCEDURE ORDERING PROVIDER [id number] 10/31/2021 20:[address] Head or Brain w/o [id number] -MYRON DURAN Contrast CPT code 02808 Reason For Exam (CT Head or Brain w/o Contrast) AMS, previous GENERAL PARTNER shunt Report Examination: CT Head Clinical Information: AMS, previous GENERAL PARTNER shunt Comparison: 10/26/2021, MRI 10/27/2021 Findings: Serial [...] J Transcribed Date and Time: 10/31/2021 8:54 [facility] RAD Carla Wong MD - 10/31/2021 [facility]: [id number] Computed Tomography ACCESSION EXAM DATE/TIME PROCEDURE ORDERING PROVIDER [id number] 10/31/2021 20:[address] Head or Brain w/o [id number] -MYRON DURAN Contrast CPT code 46581 Reason For Exam (CT Head or Brain w/o Contrast) AMS, previous GENERAL PARTNER shunt Report Examination: CT Head Clinical Information: AMS, previous GENERAL PARTNER shunt Comparison: 10/26/2021, MRI 10/27/2021 Findings: Serial [...] Brain w/o Contrast [id number] Computed Tomography ACCESSION EXAM DATE/TIME PROCEDURE ORDERING PROVIDER [id number] 10/31/2021 20:[address] Head or Brain w/o [id number] -MYRON DURAN Contrast CPT code 98240 Reason For Exam (CT Head or Brain w/o Contrast) AMS, previous GENERAL PARTNER shunt Report Examination: CT Head Clinical Information: AMS, previous GENERAL PARTNER shunt Comparison: 10/26/2021, MRI 10/27/2021 Findings: Serial [...] Transcribed Date and Time: 10/31/2021 8:54 Normal [facility] ED Provider Noteon ED Provider Note [...] is cooperative and calm. According to the fdc, he has been more lethargic than normal, [...] [employer] Dante Kim MD 10/31/21 2461 Normal [facility] ED Provider Note [facility] EMERGENCY DEPT EMERGENCY DEPARTMENT ENCOUNTER Pt Name: Andrew Sifuentes Birthdate 1950 Date of evaluation: 10/31/2021 Provider: Myron Duran MD CHIEF COMPLAINT Chief Complaint Patient presents with ? Altered Mental Status Pt presents to ED via [facility] for complaint listed. Pt is [facility]. Pt's LKW was 1000 hours today. [...] have a history of hydrocephalus with a GENERAL PARTNER shunt. 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 REVIEW OF [...] (HCC) ? Kidney stone ? Neuropathy ? GENERAL PARTNER (ventriculoperitoneal) shunt status SURGICAL HISTORY Past Surgical [...] of Transportati (more content not included)... Normal [facility] EKG 12 Lead - Chest Painon 0 10-31-2021 [facility] Test Date: 2021-10-31 Pat Name: ANDREW SIFUENTES Department: ER Room: 40 Gender: M Sheep Sorter: ANDRES : 1950 Requested By: MYRON DURAN Order Number: [id number] Reading MD: Dante Kim Measurements Intervals [place] Rate: 91 P: 41 IA: 154 QRS: 50 QRSD: 147 T: 8 QT: 385 QTc: 474 Interpretive Statements Sinus rhythm Right bundle branch block Electronically Signed On 10-31-2021 20:36:25 EDT by Dante Kim [facility] Dante Kim M D - 10/31/2021 [facility] Test Date: 2021-10-31 Pat Name: ANDREW SIFUENTES Department: ER Room: 40 Gender: M Sheep Sorter: ANDRES : 1950 Requested By: MYRON DURAN Order Number: [id number] Reading MD: Dante Kim Measurements Intervals [place] Rate: 91 P: 41 IA: 154 QRS: 50 QRSD: 147 T: 8 QT: 385 QTc: 474 Interpretive Statements Sinus rhythm Right bundle branch block Electronically Signed On 10-31-2021 20:36:25 EDT by Dante Kim [facility] Work Phone: EKG 12 Lead - Chest PainOrde red By: Dante Kim on 10-31-2021 [facility] Work Phone: Hemogram w/ Autodiffon 10-31 Abs Baso Cnt 0.1 10*3/uL Normal 0.0-0.2 [facility] Comment on above: Performed By: #### P T/AP, TROPN, BMP3, HEMDF #### [facility] [address] [place] [address] Abs Neutrophile Cnt 6.0 10*3/uL Normal 1.8-7.0 [facility] Comment on above: Performed By: #### P T/AP, TROPN, BMP3, HEMDF #### [place] [address] [address] [place], [place] Basophils/100 WBC (Bld) 1.1 % Normal 0.0-2.0 [facility] Comment on above: Performed By: #### P T/AP, TROPN, BMP3, HEMDF #### [address] [address] [place], [place] Eosinophils (Bld) [#/Vol] 0.2 10*3/uL Normal 0.0-0.5 [facility] Comment on above: Performed By: #### P T/AP, TROPN, BMP3, HEMDF #### [address] [address] [place], [place] Eosinophils/100 WBC (Bld) 2.3 % Normal 1.0-6.0 [facility] Comment on above: Performed By: #### P T/AP, TROPN, BMP3, HEMDF #### [address] Erythrocyte distribution width (RBC) [Ratio] 17.2 % High 11.5-14.5 [facility] Comment on above: Performed By: #### P T/AP, TROPN, BMP3, HEMDF #### [address] Granulocytes/100 WBC (Bld) 61.8 % Normal 40.0-80.0 [facility] Comment on above: Performed By: #### P T/AP, TROPN, BMP3, HEMDF #### [address] [address] [place], [place] Hematocrit (Bld) [Volume fraction] 35.0 % Low 40.0-52.0 [facility] Comment on above: Performed By: #### P T/AP, TROPN, BMP3, HEMDF #### [address] [address] [place], [place] Hemoglobin (Bld) [Mass/Vol] 11.3 g/dL Low 13.0-18.0 [facility] Comment on above: Performed By: #### P T/AP, TROPN, BMP3, HEMDF #### [place] [address] [place], [place] Lymphocytes (Bld) [#/Vol] 2.8 10*3/uL Normal 1.0-4.3 [facility] Comment on above: Performed By: #### P T/AP, TROPN, BMP3, HEMDF #### [address] [address] [place], [place] Lymphocytes/100 WBC (Bld) 29.2 % Normal 20.0-40.0 [facility] Comment on above: Performed By: #### P T/AP, TROPN, BMP3, HEMDF #### [address] MCH (RBC) [Entitic mass] 27.5 pg Normal 26.0-34.0 [facility] Comment on above: Performed By: #### P T/AP, TROPN, BMP3, HEMDF #### [address] [place], [place] MCHC 32.3 % Normal 32.0-36.0 [facility] Comment on above: Performed By: #### P T/AP, TROPN, BMP3, HEMDF #### [address] MCV (RBC) [Entitic vol] 85.0 fL Normal 80.0-98.0 [facility] Comment on above: Performed By: #### P T/AP, TROPN, BMP3, HEMDF #### [place] [address] [place], [place] Monocytes (Bld) [#/Vol] 0.5 10*3/uL Normal 0.0-0.8 [facility] Comment on above: Performed By: #### P T/AP, TROPN, BMP3, HEMDF #### [address] [address] [place], [place] Monocytes/100 WBC (Bld) 5.6 % Normal 2.0-10.0 [facility] Comment on above: Performed By: #### P T/AP, TROPN, BMP3, HEMDF #### [facility] [address] [place], [place] Platelet mean volume (Bld) [Entitic vol] 8.6 fL Normal 7.4-12.4 [facility] Comment on above: Result Comment: MPV is a calculated measurement using platelet volume ratio. Performed By: #### P T/AP, TROPN, BMP3, HEMDF #### [facility] [address] [place], [place] Platelets (Bld) [#/Vol] 348 10*3/uL Normal 140-440 [facility] Comment on above: Performed By: #### P T/AP, TROPN, BMP3, HEMDF #### [place] [address] [place], [place] RBC (Bld) [#/Vol] 4.12 10*6/uL Low 4.40-5.90 [facility] Comment on above: Performed By: #### P T/AP, TROPN, BMP3, HEMDF #### [facility] [address] [place], [place] WBC (Bld) [#/Vol] 9.7 10*3/uL Normal 3.6-10.7 [facility] Comment on above: Performed By: #### P T/AP, TROPN, BMP3, HEMDF #### [facility] [address] [place], [place] Laboratory - Coagulationon 0 10-31-2021 INR Coag (Bld) [Relative time] 2.0 {INR} [facility] Work Phone: Comment on above: Critical Value > 4.0 No Panel Informationon 10-31 Radiology Study observation (narrative) [facility] Work Phone: PROTIME/INR & PTTon 11-01-19 aPTT Coag (Bld) [Time] 39.2 s High 20.0 - 30.5 s [facility] Comment on above: NOTE: The therapeuti c time for Heparin anticoagulation, based on Xa activity inhibition, is an APTT of 46-80 seconds. INR Coag (Bld) [Relative time] 1.9 {INR} High [facility] Comment on above: Recommended Anticoag ulant [...] of laboratory results Abnormal [facility] PT Coag (PPP) [Time] 19.8 s High 9.0 - 12.0 s [facility] Comment on above: . Test Performed by [facility], [address] [place] [address] [facility] Protime AND APTTon 2 aPTT Coag (Bld) [Time] 39.2 s High 20.0-30.5 [facility] Comment on above: Result Comment: NOTE : The therapeutic time for Heparin anticoagulation, based on Xa activity inhibition, is an APTT of 46-80 seconds. Performed By: #### P T/AP, TROPN, BMP3, HEMDF #### [address] [address] INR 1.9 High 0.9-1.1 [facility] Comment on above: Result Comment: Harry [...] #### P T/AP, TROPN, BMP3, HEMDF #### [address] [address] PT Coag (PPP) [Time] 19.8 s High 9.0-12.0 [facility] Comment on above: Result Comment: . Performed By: #### P T/AP, TROPN, BMP3, HEMDF #### [address] [address] Troponin Ion 10-31-2021 Troponin I.cardiac [Mass/Vol] ng/mL Normal 0.000-0.034 [facility] Comment on above: Result Comment: . Performed By: #### P T/AP, TROPN, BMP3, HEMDF #### [facility] [address] [place] [address] Troponin x1on 10-31-2021 Troponin I.cardiac [Mass/Vol] ng/mL 0.000 - 0.034 ng/mL [facility] Comment on above: . Test Performed by [facility], [address] [place] [address] [facility] Whole blood prothrombin time on 10-31-2021 PT Coag (Bld) [Time] 23.7 s 11.7-14.9 [facility] Work Phone: XR ABDOMEN (KUB) (SINGLE AP VIEW)on 10-31-2021 [facility]: [id number] Diagnostic Radiology ACCESSION EXAM DATE/TIME PROCEDURE ORDERING PROVIDER [id number] 10/31/2021 20:36 EDT CR Abdomen AP [id number] -MYRON DURAN CPT code 91124 Reason For Exam (CR Abdomen AP) vp emerging media shunt, 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 CHEST PORTABLE [...] Radiology ACCESSION EXAM DATE/TIME PROCEDURE ORDERING PROVIDER [id number] 10/31/2021 20:36 EDT CR Abdomen AP [id number] -MYRON DURAN CPT code 26254 Reason For Exam (CR Abdomen AP) vp emerging media shunt, 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 CHEST PORTABLE [...] and Time: 10/31/2021 8:49 [facility] Work Phone: [facility] Work Phone: XR CHEST PORTABLEon 11-01-19 Patient Name: ANDREW SIFUENTES Diagnostic Radiology ACCESSION EXAM DATE/TIME PROCEDURE ORDERING PROVIDER [id number] 10/31/2021 20:36 EDT CR Chest Portable [id number] -MYRON DURAN CPT code 62429 Reason For Exam (CR Chest Portable) AMS [...] 10/31/2021 8:49 [facility] Huang Munoz MD - 10/31/2021 Patient Name: ANDREW SIFUENTES Diagnostic Radiology ACCESSION EXAM DATE/TIME PROCEDURE ORDERING PROVIDER [id number] 10/31/2021 20:36 EDT CR Chest Portable [id number] MYRON GALINDO CPT code 40340 Reason For Exam (CR Chest Portable) AMS [...] WENDELL Transcribed Date and Time: 10/31/2021 8:49 [facility] Work Phone: XR CHEST PORTABLEOrdered By: Huang Reynoso on 10-31-2021 [facility] Work Phone: Lupus Anticoagulanton 2021 DRVVT Confirmation Test Not Applicable Negative ratio [facility] Work Phone: dRVVT Screen 38 [facility] Work Phone: Hex Phosph Neut Test Not Applicable Negative NA [facility] Work Phone: Interpretation and review of laboratory results Abnormal [facility] Work Phone: LUPUS INTERPRETATION See Note [facility] Work Phone: Comment on above: Lupus anticoagulant [...] has not already been performed. Performed by [facility], [address], [facility] [address] [email or web address], Quiana Castro MD - Lab. Director Platelet Neutralization Not Applicable Negative NA [facility] Work Phone: PTT-D Heparin Neutralized 48 [facility] Work Phone: PTT-LA 55 High [facility] Work Phone: Reptilase Tm 17.6 <=21.9 sec [facility] Work Phone: Thrombin Time 25.3 High [facility] Work Phone: [facility] Work Phone: Lupus Anticoagulant Reflexiv e Panelon 10-29-2021 aPTT Coag (Bld) [Time] 55 s High 32-48 [facility] Comment on above: Performed By: #### C OVAG #### [facility] [address] [place] [address] aPTT Coag (Bld) [Time] 48 s Normal 32-48 [facility] Comment on above: Performed By: #### C OVAG #### [facility] [address] [place] [address] DRVVT 1:1 Mix Not Applicable Normal 33-44 [facility] Work Phone: Comment on above: Performed By: #### C OVAG #### [facility] [address] [place] [address] dRVVT Confirmation Not Applicable Normal Negative [facility] Comment on above: Performed By: #### C OVAG #### [facility] [address] [place] [address] dRVVT Screen 38 sec Normal 33-44 [facility] Comment on above: Performed By: #### C OVAG #### [facility] [address] [place] [address] Hexagonal Phospholipid Neutral Reflex Not Applicable Normal Negative [facility] Comment on above: Performed By: #### C OVAG #### [facility] [address] [place] [address] Lupus Anticoagulant Interpretation See Note Normal [facility] Comment on above: Result Comment: Lupu [...] has not already been performed. Performed by [facility], [address] [place] [id number] [email or web address], Quiana Castro MD - Lab. Director Performed By: #### C OVAG #### [facility] [address] [place] [address] Platelet Neutralization (PTT-D, Confirm) Not Applicable Normal Negative [facility] Comment on above: Performed By: #### C OVAG #### [facility] [address] [place] [address] PT Coag (PPP) [Time] 14.7 s Normal 12.0-15.5 [facility] Work Phone: Comment on above: Performed By: #### C OVAG #### [facility] [address] [place] [address] PTT-D 1:1 Mix Not Applicable Normal 32-48 [facility] Work Phone: Comment on above: Performed By: #### C OVAG #### [facility] [address] [place] [address] Reptilase Time 17.6 sec Normal <=21.9 [facility] Comment on above: Performed By: #### C OVAG #### [facility] [address] [place] [address] Thrombin Time 25.3 sec High 14.7-19.5 [facility] Comment on above: Performed By: #### C OVAG #### [facility] [address] [place] [address] POCT COVID-19, Antigenon SARS-CoV-2 Nucleocapsid Antigen Negative Negative NA [facility] Comment on above: A negative result does not rule out the possibility of SARS-CoV-2 infection. NAAT-based methods should be considered for symptomatic patients presenting greater than seven days after onset of symptoms. Method: Lateral flow immunoassay. Fact sheets for healthcare providers and patients can be found at the following sites: https://www.fda.gov/media/447246/download https://www.fda.gov/media/332338/download Test Performed by [facility], [address] [facility] [place] [id number] [place] [address] LAB [facility] Prothrombin Timeon INR 2.7 High 0.9-1.1 [facility] Comment on above: Result Comment: Harry [...] Infarction Performed By: #### P T #### [facility] [address] [place] [address] PT Coag (PPP) [Time] 27.4 s High 9.0-12.0 [facility] Comment on above: Result Comment: . Performed By: #### P T #### [facility] [address] [place] [address] Protime-INRon 10-29-2021 INR Coag (Bld) [Relative time] 2.7 {INR} High [facility] Work Phone: Comment on above: Recommended [...] of laboratory results Abnormal [facility] Work Phone: PT Coag (PPP) [Time] 27.4 s High 9.0 - 12.0 s [facility] Work Phone: [phone] Comment on above: . Test Performed by [facility], [address], [place], [place] [address] [facility] Work Phone: [phone] SARS-CoV-2 Antigenon 022 SARS-CoV-2 Antigen Negative Normal Negative [facility] Comment on above: Result Comment: A negative result does not rule out the possibility of SARS-CoV-2 infection. NAAT-based methods should be considered for symptomatic patients presenting greater than seven days after onset of symptoms. Method: Lateral flow immunoassay. Fact sheets for healthcare providers and patients can be found at the following sites: https://www.Cov[employer].gov/media/233413/download https://www.Cov[employer].gov/media/169822/download Performed By: #### C OVAG #### [facility] [address] [place] [address] CBCon 10-28-2021 Hematocrit (Bld) [Volume fraction] 33.4 % Low 40.0 - 52.0 % [facility] Work Phone: Hemoglobin (Bld) [Mass/Vol] 11.0 g/dL Low 13.0 - 18.0 g/dL [facility] Work Phone: Interpretation and review of laboratory results Abnormal [facility] Work Phone: MCH (RBC) [Entitic mass] 27.8 pg 26.0 - 34.0 pg [facility] Work Phone: MCHC (RBC) [Mass/Vol] 32.8 % 32.0 - 36.0 % [facility] Work Phone: MCV (RBC) [Entitic vol] 84.8 fL 80.0 - 98.0 fL [facility] Work Phone: Platelet distribution width (Bld) [Ratio] 17.1 % High 11.5 - 14.5 % [facility] Work Phone: Platelet mean volume (Bld) [Entitic vol] 8.3 fL 7.4 - 12.4 fL [facility] Work Phone: Comment on above: MPV is a calculated measurement using platelet volume ratio. Platelets (Bld) [#/Vol] 344 10*3/uL 140 - 440 10*3/uL [facility] Work Phone: [phone] RBC (Bld) [#/Vol] 3.94 10*6/uL Low 4.40 - 5.9 0 10*6/uL [facility] Work Phone: [phone] WBC (Bld) [#/Vol] 10.0 10*3/uL 3.6 - 10.7 10*3/uL [facility] Work Phone: Test Performed by [facility], [address] [place], [place] [id number] [place] [address] LAB [facility] Work Phone: Comp Metabolic Panelon 10-28 ALP [Catalytic activity/Vol] 103 U/L Normal 38-126 [facility] Comment on above: Performed By: #### C A19O, LUPUS #### The performing lab is in the report. #### NSEO #### [facility] #### HEMDF, LDH3, BMP3, MG3, PT, CEA2 #### [facility] [address] [place] [address] #### B2GPM, B2GPA, B2GPG #### [facility] [address] [place] [address] ALT [Catalytic activity/Vol] 26 U/L Normal 0-49 [facility] Comment on above: Result Comment: The ALT test is performed by an updated assay method. Please note that the reference intervals have been changed and are now sex specific. Performed By: #### C A19O, LUPUS #### The performing lab is in the report. #### NSEO #### [facility] #### HEMDF, LDH3, BMP3, MG3, PT, CEA2 #### [facility] [address] [place] [address] #### B2GPM, B2GPA, B2GPG #### [address] AST [Catalytic activity/Vol] 24 U/L Normal 15-46 [facility] Comment on above: Performed By: #### C A19O, LUPUS #### The performing lab is in the report. #### NSEO #### [facility] #### HEMDF, LDH3, BMP3, MG3, PT, CEA2 #### [place] [address] [place] #### B2GPM, B2GPA, B2GPG #### [address] Calcium [Mass/Vol] 9.1 mg/dL Normal 8.4-10.4 [facility] Comment on above: Performed By: #### C A19O, LUPUS #### The performing lab is in the report. #### NSEO #### [facility] #### HEMDF, LDH3, BMP3, MG3, PT, CEA2 #### [address] [place] [address] #### B2GPM, B2GPA, B2GPG #### [address] Glucose [Mass/Vol] 117 mg/dL High 70-100 [facility] Comment on above: Performed By: #### C A19O, LUPUS #### The performing lab is in the report. #### NSEO #### [facility] #### HEMDF, LDH3, BMP3, MG3, PT, CEA2 #### [place] [address] [place] [address] #### B2GPM, B2GPA, B2GPG #### [address] Urea nitrogen [Mass/Vol] 16 mg/dL Normal 7-17 [facility] Comment on above: Performed By: #### C A19O, LUPUS #### The performing lab is in the report. #### NSEO #### [facility] #### HEMDF, LDH3, BMP3, MG3, PT, CEA2 #### [place] [address] [place] [address] #### B2GPM, B2GPA, B2GPG #### [address] Anion gap [Moles/Vol] 5 mmol/L Normal 3-13 [facility] Comment on above: Performed By: #### C A19O, LUPUS #### The performing lab is in the report. #### NSEO #### [facility] #### HEMDF, LDH3, BMP3, MG3, PT, CEA2 #### [place] [address] [place] [address] #### B2GPM, B2GPA, B2GPG #### [address] Bilirubin [Mass/Vol] 0.4 mg/dL Normal 0.2-1.3 [facility] Comment on above: Performed By: #### C A19O, LUPUS #### The performing lab is in the report. #### NSEO #### [facility] #### HEMDF, LDH3, BMP3, MG3, PT, CEA2 #### [place] [address] [place] [address] #### B2GPM, B2GPA, B2GPG #### [address] CO2 [Moles/Vol] 29 mmol/L Normal 22-30 [facility] Comment on above: Performed By: #### C A19O, LUPUS #### The performing lab is in the report. #### NSEO #### [facility] #### HEMDF, LDH3, BMP3, MG3, PT, CEA2 #### [place] [address] [place] [address] #### B2GPM, B2GPA, B2GPG #### [address] Creatinine [Mass/Vol] 0.71 mg/dL Normal 0.52-1.25 [facility] Comment on above: Performed By: #### C A19O, LUPUS #### The performing lab is in the report. #### NSEO #### [facility] #### HEMDF, LDH3, BMP3, MG3, PT, CEA2 #### [facility] [address] [place], [place] #### B2GPM, B2GPA, B2GPG #### [address] eGFR OTHER > 90.0 Normal >60 [facility] Comment on above: Result Comment: KDIG [...] HEMDF, LDH3, BMP3, MG3, PT, CEA2 #### [facility] [address] [place] [address] #### B2GPM, B2GPA, B2GPG #### [address] GFR/1.73 sq M.predicted among blacks MDRD (S/P/Bld) [Vol rate/Area] mL/min/{1.73_m2} Normal >60 [facility] Comment on above: Performed By: #### C A19O, LUPUS #### The performing lab is in the report. #### NSEO #### [facility] #### HEMDF, LDH3, BMP3, MG3, PT, CEA2 #### [facility] [address] [place] [address] #### B2GPM, B2GPA, B2GPG #### [address] Protein [Mass/Vol] 7.1 g/dL Normal 6.3-8.2 [facility] Comment on above: Performed By: #### C A19O, LUPUS #### The performing lab is in the report. #### NSEO #### [facility] #### HEMDF, LDH3, BMP3, MG3, PT, CEA2 #### [facility] [address] [place] [address] #### B2GPM, B2GPA, B2GPG #### [address] Potassium [Moles/Vol] 3.5 mmol/L Normal 3.5-5.1 [facility] Comment on above: Performed By: #### C A19O, LUPUS #### The performing lab is in the report. #### NSEO #### [facility] #### HEMDF, LDH3, BMP3, MG3, PT, CEA2 #### [facility] [address] [place] [address] #### B2GPM, B2GPA, B2GPG #### [address] Sodium [Moles/Vol] 138 mmol/L Normal 135-145 [facility] Comment on above: Performed By: #### C A19O, LUPUS #### The performing lab is in the report. #### NSEO #### [facility] #### HEMDF, LDH3, BMP3, MG3, PT, CEA2 #### [facility] [address] [place] [address] #### B2GPM, B2GPA, B2GPG #### [address] Albumin [Mass/Vol] 3.7 g/dL Normal 3.5-5.0 [facility] Comment on above: Performed By: #### C A19O, LUPUS #### The performing lab is in the report. #### NSEO #### [facility] #### HEMDF, LDH3, BMP3, MG3, PT, CEA2 #### [facility] [address] [place] [address] #### B2GPM, B2GPA, B2GPG #### [address] Chloride [Moles/Vol] 104 mmol/L Normal 98-107 [facility] Comment on above: Performed By: #### C A19O, LUPUS #### The performing lab is in the report. #### NSEO #### [facility] #### HEMDF, LDH3, BMP3, MG3, PT, CEA2 #### [facility] [address] [place] [address] #### B2GPM, B2GPA, B2GPG #### [address] Comprehensive Metabolic Pane kiel 10-28-2021 Albumin [Mass/Vol] 3.7 g/dL 3.5 - 5.0 g/dL [facility] Work Phone: ALP (Bld) [Catalytic activity/Vol] 103 U/L 38 - 126 U/L [facility] Work Phone: ALT [Catalytic activity/Vol] 26 U/L 0 - 49 U/L [facility] Work Phone: Comment on above: The [...] - 10. 4 mg/dL [facility] Work Phone: [phone] Chloride [Moles/Vol] 104 mmol/L 98 - 10 7 mmol/L [facility] Work Phone: CO2 [Moles/Vol] 29 mmol/L 22 - 30 mmol/L [facility] Work Phone: [phone] Creatinine [Mass/Vol] 0.71 mg/dL 0.52 - 1.25 mg/dL [facility] Work Phone: EGFR IF NonAfrican Montserratian >90.0 >60 mL/min [facility] Work Phone: Comment on above: KDIGO [...] fraction] 7.1 g/dL 6.3 - 8.2 g/dL [facility] Work Phone: GFR/1.73 sq M.predicted among blacks MDRD (S/P/Bld) [Vol rate/Area] mL/min/{1.73_m2} >60 mL/min [facility] Work Phone: Glucose [Mass/Vol] 117 mg/dL High 70 - 100 mg/dL [facility] Work Phone: Interpretation and review of laboratory results Abnormal [facility] Work Phone: Potassium [Moles/Vol] 3.5 mmol/L 3.5 - 5.1 mmol/L [facility] Work Phone: Sodium [Moles/Vol] 138 mmol/L 135 - 145 mmol/L [facility] Work Phone: Urea nitrogen (BldV) [Mass/Vol] 16 mg/dL 7 - 17 mg/dL [facility] Work Phone: Test Performed by [facility], [address] [place] [id number] [place] [address] LAB [facility] Work Phone: Hemogramon 10-28-2021 Erythrocyte distribution width (RBC) [Ratio] 17.1 % High 11.5-14.5 [facility] Comment on above: Performed By: #### C A19O, LUPUS #### The performing lab is in the report. #### NSEO #### [facility] #### HEMDF, LDH3, BMP3, MG3, PT, CEA2 #### [address] [address] #### B2GPM, B2GPA, B2GPG #### [address] [address] Hematocrit (Bld) [Volume fraction] 33.4 % Low 40.0-52.0 [facility] Comment on above: Performed By: #### C A19O, LUPUS #### The performing lab is in the report. #### NSEO #### [facility] #### HEMDF, LDH3, BMP3, MG3, PT, CEA2 #### [address] [address] #### B2GPM, B2GPA, B2GPG #### [address] Hemoglobin (Bld) [Mass/Vol] 11.0 g/dL Low 13.0-18.0 [facility] Comment on above: Performed By: #### C A19O, LUPUS #### The performing lab is in the report. #### NSEO #### [facility] #### HEMDF, LDH3, BMP3, MG3, PT, CEA2 #### [place] [address] [place], [place] #### B2GPM, B2GPA, B2GPG #### [address] MCH (RBC) [Entitic mass] 27.8 pg Normal 26.0-34.0 [facility] Comment on above: Performed By: #### C A19O, LUPUS #### The performing lab is in the report. #### NSEO #### [facility] #### HEMDF, LDH3, BMP3, MG3, PT, CEA2 #### [address] [place], [place] #### B2GPM, B2GPA, B2GPG #### [address] MCHC 32.8 % Normal 32.0-36.0 [facility] Comment on above: Performed By: #### C A19O, LUPUS #### The performing lab is in the report. #### NSEO #### [facility] #### HEMDF, LDH3, BMP3, MG3, PT, CEA2 #### [address] [place], [place] #### B2GPM, B2GPA, B2GPG #### [address] MCV (RBC) [Entitic vol] 84.8 fL Normal 80.0-98.0 [facility] Comment on above: Performed By: #### C A19O, LUPUS #### The performing lab is in the report. #### NSEO #### [facility] #### HEMDF, LDH3, BMP3, MG3, PT, CEA2 #### [facility] [address] [place] [address] #### B2GPM, B2GPA, B2GPG #### [address] Platelet mean volume (Bld) [Entitic vol] 8.3 fL Normal 7.4-12.4 [facility] Comment on above: Result Comment: MPV is a calculated measurement using platelet volume ratio. Performed By: #### C A19O, LUPUS #### The performing lab is in the report. #### NSEO #### [facility] #### HEMDF, LDH3, BMP3, MG3, PT, CEA2 #### [address] [facility] [place] #### B2GPM, B2GPA, B2GPG #### [address] Platelets (Bld) [#/Vol] 344 10*3/uL Normal 140-440 [facility] Comment on above: Performed By: #### C A19O, LUPUS #### The performing lab is in the report. #### NSEO #### [facility] #### HEMDF, LDH3, BMP3, MG3, PT, CEA2 #### [address] [facility] [place] [place] #### B2GPM, B2GPA, B2GPG #### [address] RBC (Bld) [#/Vol] 3.94 10*6/uL Low 4.40-5.90 [facility] Comment on above: Performed By: #### C A19O, LUPUS #### The performing lab is in the report. #### NSEO #### [facility] #### HEMDF, LDH3, BMP3, MG3, PT, CEA2 #### [address] [place] [address] #### B2GPM, B2GPA, B2GPG #### [facility] [address] [place] [address] WBC (Bld) [#/Vol] 10.0 10*3/uL Normal 3.6-10.7 [facility] Comment on above: Performed By: #### C A19O, LUPUS #### The performing lab is in the report. #### NSEO #### [facility] #### HEMDF, LDH3, BMP3, MG3, PT, CEA2 #### [facility] [address] [place] [address] #### B2GPM, B2GPA, B2GPG #### [facility] [address] [place], [place] Neuron Specific Enolaseon Neuron Specific Enolase 20.8 Normal [facility] Comment on above: Result Comment: Neur on Specific Enolase, Serum 20.8 ng/mL H (Ref Interval: <=12.7) NSE and Hgb are elevated in the specimen. The elevated NSE may be a result of hemolysis as NSE is expressed in red blood cells. Interpret results with caution. INTERPRETIVE INFORMATION: Neuron Specific Enolase in Serum This assay is performed using the [employer] NSE Kryptor Immunoassay. Results obtained with different assay methods or kits cannot be used interchangeably. Results cannot be interpreted as absolute evidence of the presence or absence of malignant disease. This test was developed and its performance characteristics determined by [employer]. It has not been cleared or approved by the [place] Food and Drug Administration. This test was performed in a CLIA certified laboratory and is intended for clinical purposes. Performed By: #### C OVAG #### [facility] [address] [place] [address] Neuron specific enolase (NSE )on 10-28-2021 Neuron Specific Enolase 20.8 [facility] Work Phone: Comment on above: Neuron Specific Enol ase, Serum 20.8 ng/mL H (Ref Interval: <=12.7) NSE and Hgb are elevated in the specimen. The elevated NSE may be a result of hemolysis as NSE is expressed in red blood cells. Interpret results with caution. INTERPRETIVE INFORMATION: Neuron Specific Enolase in Serum This assay is performed using the [employer] NSE Kryptor Immunoassay. Results obtained with different assay methods or kits cannot be used interchangeably. Results cannot be interpreted as absolute evidence of the presence or absence of malignant disease. This test was developed and its performance characteristics determined by [employer]. It has not been cleared or approved by the [place] Food and Drug Administration. This test was performed in a CLIA certified laboratory and is intended for clinical purposes. 1 [facility] LAB [facility] Work Phone: Prothrombin Timeon 2 INR 3.1 High 0.9-1.1 [facility] Comment on above: Result Comment: Harry [...] HEMDF, LDH3, BMP3, MG3, PT, CEA2 #### [facility] [address] [place] [address] #### B2GPM, B2GPA, B2GPG #### [address] [address] PT Coag (PPP) [Time] 30.8 s High 9.0-12.0 [facility] Comment on above: Result Comment: . Performed By: #### C A19O, LUPUS #### The performing lab is in the report. #### NSEO #### [facility] #### HEMDF, LDH3, BMP3, MG3, PT, CEA2 #### [facility] [address] [place] [address] #### B2GPM, B2GPA, B2GPG #### [address] [address] Protime-INRon 10-28-2021 INR Coag (Bld) [Relative time] 3.1 {INR} High [facility] Work Phone: Comment on above: Recommended [...] of laboratory results Abnormal [facility] Work Phone: PT Coag (PPP) [Time] 30.8 s High 9.0 - 12.0 s [facility] Work Phone: Comment on above: . Test Performed by [facility], [address] [place], [place] [id number] [place] [address] LAB [facility] Work Phone: MRI BRAIN WO CONTRASTon 10-06 Patient Name: ANDREW SIFUENTES Magnetic [facility] Imaging ACCESSION EXAM DATE/TIME PROCEDURE ORDERING PROVIDER [id number] 10/27/2021 13:14 EDT MRI Brain w/o Contrast UNASSIGNED, UNASSIGNED CPT code 26154 Reason For Exam (MRI Brain w/o Contrast) stroke Patient has GENERAL PARTNER shunt in place, please follow Radiology protocol [...] OSAMA Transcribed Date and Time: 10/27/2021 2:39 [facility] Venus Loyd MD - 10/27/2021 Patient Name: ANDREW SIFUENTES Magnetic Resonance Imaging ACCESSION EXAM DATE/TIME PROCEDURE ORDERING PROVIDER [id number] 10/27/2021 13:14 EDT MRI Brain w/o Contrast UNASSIGNED, UNASSIGNED CPT code 02985 Reason For Exam (MRI Brain w/o Contrast) stroke Patient has GENERAL PARTNER shunt in place, please follow Radiology protocol [...] w/o Contrast Patient Name: ANDREW VELAZQUEZ [facility]#: [id number] Magnetic Resonance Imaging ACCESSION EXAM DATE/TIME PROCEDURE ORDERING PROVIDER [id number] 10/27/2021 13:14 EDT MRI Brain w/o Contrast UNASSIGNED, UNASSIGNED CPT code 67901 Reason For Exam (MRI Brain w/o Contrast) stroke Patient has GENERAL PARTNER shunt in place, please follow Radiology protocol [...] Transcribed Date and Time: 10/27/2021 2:39 Normal [facility] Prothrombin Timeon INR 2.1 High 0.9-1.1 [facility] Comment on above: Result Comment: Harry [...] Infarction Performed By: #### P T #### [facility] [address] [place] [address] PT Coag (PPP) [Time] 21.9 s High 9.0-12.0 [facility] Work Phone: Comment on above: . Result Comment: . Performed By: #### P T #### [facility] [address] [place] [address] Protime-INRon 10-27-2021 INR Coag (Bld) [Relative time] 2.1 {INR} High [facility] Work Phone: Comment on above: Recommended [...] of laboratory results Abnormal [facility] Work Phone: Test Performed by [facility], [address] [place], [place], [place] [address] [facility] LAB [facility] Work Phone: CT HEAD WO CONTRASTon 2021 Patient Name: ANDREW SIFUENTES Computed Tomography ACCESSION EXAM DATE/TIME PROCEDURE ORDERING PROVIDER [id number] 10/26/2021 11:[address] Head or Brain w/o JUNIE PINEDA ALLISON Contrast CPT code 15224 Reason For Exam (CT Head or Brain w/o Contrast) hydrocephalus. thank you Report CLINICAL INFORMATION: Hydrocephalus. Shunt. 3 mm axial cuts through the head are obtained without IV contrast. The examination is compared to a previous study dated 06/29/2014. FINDINGS: Old GENERAL PARTNER shunt tubing is noted bilaterally. The new [...] are clear. IMPRESSION: 1. Old and new GENERAL PARTNER shunt tubing. 2. No hydrocephalus. 3. Atrophy and evidence of small-vessel ischemic disease. 4. No CT evidence of an acute intracranial process. Report Dictated on --- Final --- Dictating Physician: MD SOLANO JEFFREY Signed Date and Time: 10/26/2021 11:42 am Signed by: MD SOLANO JEFFREY Transcribed Date and Time: 10/26/2021 11:43 [facility] Albert Solano MD - 10/26/2021 [id number] Comput[facility] Tomography ACCESSION EXAM DATE/TIME PROCEDURE ORDERING PROVIDER [id number] 10/26/2021 11:[address] Head or Brain w/o JUNIE PINEDA ALLISON Contrast CPT code 39145 Reason For Exam (CT Head or Brain w/o Contrast) hydrocephalus. thank you Report CLINICAL INFORMATION: Hydrocephalus. Shunt. 3 mm axial cuts through the head are obtained without IV contrast. The examination is compared to a previous study dated 06/29/2014. FINDINGS: Old GENERAL PARTNER shunt tubing is noted bilaterally. The new [...] are clear. IMPRESSION: 1. Old and new GENERAL PARTNER shunt tubing. 2. No hydrocephalus. 3. Atrophy [...] Tomography ACCESSION EXAM DATE/TIME PROCEDURE ORDERING PROVIDER [id number] 10/26/2021 11:[address] Head or Brain w/o JUNIE PINEDA, SARINA Contrast CPT code 05576 Reason For Exam (CT Head or Brain w/o Contrast) hydrocephalus. thank you Report CLINICAL INFORMATION: Hydrocephalus. Shunt. 3 mm axial cuts through the head are obtained without IV contrast. The examination is compared to a previous study dated 06/29/2014. FINDINGS: Old GENERAL PARTNER shunt tubing is noted bilaterally. The new [...] are clear. IMPRESSION: 1. Old and new GENERAL PARTNER shunt tubing. 2. No hydrocephalus. 3. Atrophy and evidence of small-vessel ischemic disease. 4. No CT evidence of an acute intracranial process. 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 Barreto REASON FOR EXAM: seizures HISTORY: Andrew Sifuentes is a 71 y.o. 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 At present patient is awake, follows commands, was able to tell his name, and that he was in hospital but not oriented to time. Per documentation patient had NCSE in May 2021, was on Vimpat, but it was discontinued as there was no evidence of recurrent seizures in July 2021 by Neurology at [facility] [place] [facility], per daughter patient was on Dilantin for 31 yrs. Per daughter patient had seizures in the past and also felt he had staring episodes this morning. Per daughter patient has been essentially bed bound in [place] since May 2021 but prior to that was independent. MEDICATIONS: Current Facility-Administered Medications Medication Dose Route Frequency Provider Last Rate Last Admin warfarin (COUMADIN) tablet 7.5 mg 7.5 mg Oral Once Andres Sheridan MD levETIRAcetam (KEPPRA) 750 mg in sodium chloride 0.9 % 100 mL IVPB 750 mg IntraVENous BID Santino Aaron Mary Lou, MD ipratropium-albuterol (DUONEB) nebulizer solution 1 ampule [...] study with video was carried out at [facility]. Scalp electrodes were positioned in person by an pharmacy technologist, following patient education, according to the 10-20 International system of electrode placement and maintained for integrity and quality of the recording. EEG data with video was recorded continuously and digitally stored. The pharmacy technologist reviewed all automated detections and manual [...] No normal vari (more content not included)... [facility] Work Phone: [facility] Work Phone: No Panel Informationon 10-26 Radiology Study observation (narrative) [facility] Work Phone: Prothrombin Timeon 2 INR 1.9 High 0.9-1.1 [facility] Comment on above: Result Comment: Harry [...] Infarction Performed By: #### C OVAG #### [facility] [address] [place] [address] PT Coag (PPP) [Time] 19.7 s High 9.0-12.0 [facility] Comment on above: Result Comment: . Performed By: #### C OVAG #### [facility] [address] [place] [address] Protime-INRon 10-26-2021 INR Coag (Bld) [Relative time] 1.9 {INR} High [facility] Work Phone: Comment on above: Recommended [...] of laboratory results Abnormal [facility] Work Phone: PT Coag (PPP) [Time] 19.7 s High 9.0 - 12.0 s [facility] Work Phone: Comment on above: . Test Performed by [facility], [address] [place], [place] [id number] [place] [address] LAB [facility] Work Phone: CA 19-9on 10-25-2021 CA 19-9 17 U/mL Normal <=35 [facility] Work Phone: Comment on above: INTERPRETIVE [...] or absence of malignant disease. Performed By: [place] [address] [employer] Loan Originator Assistant: Quiana Castro MD Result Comment: INTE RPRETIVE [...] or absence of malignant disease. Performed By: [place] [address] [employer] Assistant: Quiana Castro MD Performed By: #### C OVAG #### [facility] [address] [place] [address] Cancer Antigen 19-9on 2021 [facility] Work Phone: Prothrombin Timeon INR 1.5 High 0.9-1.1 [facility] Comment on above: Result Comment: Harry [...] Infarction Performed By: #### P T #### [facility] [address] [place] [address] PT Coag (PPP) [Time] 15.6 s High 9.0-12.0 [facility] Comment on above: Result Comment: . Performed By: #### P T #### [facility] [address] [place] [address] Protime-INRon 10-25-2021 INR Coag (Bld) [Relative time] 1.5 {INR} High [facility] Work Phone: Comment on above: Recommended [...] laboratory results Abnormal [facility] Work Phone: PT Coag (PPP) [Time] 15.6 s High 9.0 - 12.0 s [facility] Work Phone: Comment on above: . Test Performed by [facility], [address] [place], [place] [address] [facility] Work Phone: B-2 Glycoprotein (IGA)on Beta-2 Glyco 1 IgA <2.0 U/mL [facility] Work Phone: Comment on above: Interpretive Informa tion: Results equal to or greater than 20 U/mL = POSITIVE Results less than 20 U/mL = NEGATIVE B2 Glycoprotein I (IgM) Abon 10-24-2021 Beta-2 Glyco 1 IgM <1.5 U/mL [facility] Work Phone: Comment on above: Interpretive Informa tion: Results equal to or greater than 20 U/mL = POSITIVE Results less than 20 U/mL = NEGATIVE B2 Glycoprotein I Igg Abon 0 10-24-2021 Beta-2 Glyco 1 IgG <1.4 U/mL [facility] Work Phone: Comment on above: Interpretive Informa tion: Results equal to or greater than 20 U/mL = POSITIVE Results less than 20 U/mL = NEGATIVE Basic Metabolic Panelon 10-06 Anion gap [Moles/Vol] 8 mmol/L Normal 3-13 [facility] Comment on above: Performed By: #### C A19O, LUPUS #### The performing lab is in the report. #### NSEO #### [facility] #### HEMDF, LDH3, BMP3, MG3, PT, CEA2 #### [facility] [address] [place] [address] #### B2GPM, B2GPA, B2GPG #### [facility] [address] [place] [address] Calcium [Mass/Vol] 8.8 mg/dL Normal 8.4-10.4 [facility] Comment on above: Performed By: #### C A19O, LUPUS #### The performing lab is in the report. #### NSEO #### [facility] #### HEMDF, LDH3, BMP3, MG3, PT, CEA2 #### [facility] [address] [place] [address] #### B2GPM, B2GPA, B2GPG #### [address] CO2 [Moles/Vol] 25 mmol/L Normal 22-30 [facility] Comment on above: Performed By: #### C A19O, LUPUS #### The performing lab is in the report. #### NSEO #### [facility] #### HEMDF, LDH3, BMP3, MG3, PT, CEA2 #### [facility] [address] [place] [address] #### B2GPM, B2GPA, B2GPG #### [address] Creatinine [Mass/Vol] 0.74 mg/dL Normal 0.52-1.25 [facility] Comment on above: Performed By: #### C A19O, LUPUS #### The performing lab is in the report. #### NSEO #### [facility] #### HEMDF, LDH3, BMP3, MG3, PT, CEA2 #### [place] [address] [place] [address] #### B2GPM, B2GPA, B2GPG #### [address] eGFR OTHER > 90.0 Normal >60 [facility] Comment on above: Result Comment: KDIG [...] tubular creatinine secretion. Performed By: #### C A1Derrek, LUPUS #### The performing lab is in the report. #### NSEO #### [facility] #### HEMDF, LDH3, BMP3, MG3, PT, CEA2 #### [facility] [address] [place] [address] #### B2GPM, B2GPA, B2GPG #### [address] GFR/1.73 sq M.predicted among blacks MDRD (S/P/Bld) [Vol rate/Area] mL/min/{1.73_m2} Normal >60 [facility] Comment on above: Performed By: #### C Mary LouO, LUPUS #### The performing lab is in the report. #### NSEO #### [facility] #### HEMDF, LDH3, BMP3, MG3, PT, CEA2 #### [facility] [address] [place] [address] #### B2GPM, B2GPA, B2GPG #### [address] Glucose [Mass/Vol] 116 mg/dL High 70-100 [facility] Comment on above: Performed By: #### C A19O, LUPUS #### The performing lab is in the report. #### NSEO #### [facility] #### HEMDF, LDH3, BMP3, MG3, PT, CEA2 #### [facility] [address] [place] [address] #### B2GPM, B2GPA, B2GPG #### [address] Urea nitrogen [Mass/Vol] 19 mg/dL High 7-17 [facility] Comment on above: Performed By: #### C A19O, LUPUS #### The performing lab is in the report. #### NSEO #### [facility] #### HEMDF, LDH3, BMP3, MG3, PT, CEA2 #### [place] [address] [place] [address] #### B2GPM, B2GPA, B2GPG #### [address] Chloride [Moles/Vol] 107 mmol/L Normal 98-107 [facility] Comment on above: Performed By: #### C A19O, LUPUS #### The performing lab is in the report. #### NSEO #### [facility] #### HEMDF, LDH3, BMP3, MG3, PT, CEA2 #### [place] [address] [place] [address] #### B2GPM, B2GPA, B2GPG #### [address] Potassium [Moles/Vol] 3.9 mmol/L Normal 3.5-5.1 [facility] Comment on above: Performed By: #### C A19O, LUPUS #### The performing lab is in the report. #### NSEO #### [facility] #### HEMDF, LDH3, BMP3, MG3, PT, CEA2 #### [address] [place] [address] #### B2GPM, B2GPA, B2GPG #### [address] Sodium [Moles/Vol] 140 mmol/L Normal 135-145 [facility] Comment on above: Performed By: #### C A19O, LUPUS #### The performing lab is in the report. #### NSEO #### [facility] #### HEMDF, LDH3, BMP3, MG3, PT, CEA2 #### [place] [address] [place] [address] #### B2GPM, B2GPA, B2GPG #### [address] [address] Anion gap [Moles/Vol] 8 mmol/L 3 - 13 mmol/L [facility] Calcium [Mass/Vol] 8.8 mg/dL 8.4 - 10. 4 mg/dL [facility] Chloride [Moles/Vol] 107 mmol/L 98 - 10 7 mmol/L [facility] CO2 [Moles/Vol] 25 mmol/L 22 - 30 mmol/L [facility] Creatinine [Mass/Vol] 0.74 mg/dL 0.52 - 1.25 mg/dL [facility] EGFR IF NonAfrican Montserratian >90.0 >60 mL/min [facility] Comment on above: [...] mg/dL [facility] Test Performed by [facility], [address] [place], [place], [place] [id number] [place] [address] LAB [facility] Beta-2 Glycoprotein I IgAon 06-20-2022 Beta-2 Glycoprotein I IgA < 2.0 Normal [facility] Comment on above: Result Comment: Inte rpretive Information: Results equal to or greater than 20 U/mL = POSITIVE Results less than 20 U/mL = NEGATIVE Performed By: #### C OVAG #### [facility] [address] [place] [address] Beta-2 Glycoprotein I IgGon 10-24-2021 Beta-2 Glycoprotein I IgG < 1.4 Normal [facility] Comment on above: Result Comment: Inte rpretive Information: Results equal to or greater than 20 U/mL = POSITIVE Results less than 20 U/mL = NEGATIVE Performed By: #### C OVAG #### [facility] [address] [place] [address] Beta-2 Glycoprotein I IgMon 10-24-2021 Beta-2 Glycoprotein I IgM < 1.5 Normal [facility] Comment on above: Result Comment: Inte rpretive Information: Results equal to or greater than 20 U/mL = POSITIVE Results less than 20 U/mL = NEGATIVE Performed By: #### C OVAG #### [facility] [address] [place] [address] No Panel Informationon 10-24 [facility] Test Performed by [facility], [address] [place] [id number] [place] [address] LAB [facility] Work Phone: PROTEIN C FUNCTIONALon 10-24 Interpretation and review of laboratory results Abnormal [facility] Protein C-Functional 185 % High 83 [...] reference intervals for this test in the [facility] ([employer]). Performed by [facility], [address] [place] [id number] www.[employer], Quiana Castro MD - Lab. Director Protein C, Functionalon 10-06 Protein C, Functional 185 % High 83-168 [facility] Comment on above: Result Comment: INTE [...] reference intervals for this test in the [facility] ([employer]). Performed by [facility], [address] [id number] www.[employer], Quiana Castro MD - Lab. Director Performed By: #### P T #### [facility] [address] [place] [address] Protein S, Functionalon 06-2 Protein S, Functional 138 % Normal 66-143 [facility] Comment on above: INTERPRETIVE INFORMA TION: [...] reference intervals for this test in the [facility] ([employer]). Performed by [facility], [address] [place] [id number] www.[employer], Quiana Castro MD - Lab. Director Result [...] reference intervals for this test in the [facility] ([employer]). Performed by [facility], [address] [id number] www.[employer], Quiana Castro MD - Lab. Director Performed By: #### P T #### [facility] [address] [place] [address] Prothrombin Timeon INR 1.2 High 0.9-1.1 [facility] Comment on above: Result Comment: Harry [...] HEMDF, LDH3, BMP3, MG3, PT, CEA2 #### [place] [address] [place] [address] #### B2GPM, B2GPA, B2GPG #### [address] [phone] PT Coag (PPP) [Time] 12.6 s High 9.0-12.0 [facility] Comment on above: Result Comment: . Performed By: #### C A19O, LUPUS #### The performing lab is in the report. #### NSEO #### [facility] #### HEMDF, LDH3, BMP3, MG3, PT, CEA2 #### [address] [place] [address] #### B2GPM, B2GPA, B2GPG #### [address] [phone] Protime-INRon 10-24-2021 INR Coag (Bld) [Relative time] 1.2 {INR} High [facility] Comment on above: Recommended Anticoag ulant [...] of laboratory results Abnormal [facility] PT Coag (PPP) [Time] 12.6 s High 9.0 - 12.0 s [facility] Comment on above: . Test Performed by [facility], [address] LAB [facility] Basic Metabolic Panelon 10-05 Anion gap [Moles/Vol] 10 mmol/L Normal 3-13 [facility] Comment on above: Performed By: #### C A19O, LUPUS #### The performing lab is in the report. #### NSEO #### [facility] #### HEMDF, LDH3, BMP3, MG3, PT, CEA2 #### [place] [address] [place] [address] #### B2GPM, B2GPA, B2GPG #### [address] [phone] Calcium [Mass/Vol] 9.6 mg/dL Normal 8.4-10.4 [facility] Comment on above: Performed By: #### C A19O, LUPUS #### The performing lab is in the report. #### NSEO #### [facility] #### HEMDF, LDH3, BMP3, MG3, PT, CEA2 #### [facility] [address] [place] [address] #### B2GPM, B2GPA, B2GPG #### [address] [address] CO2 [Moles/Vol] 27 mmol/L Normal 22-30 [facility] Comment on above: Performed By: #### C A19O, LUPUS #### The performing lab is in the report. #### NSEO #### [facility] #### HEMDF, LDH3, BMP3, MG3, PT, CEA2 #### [address] [place] [address] #### B2GPM, B2GPA, B2GPG #### [address] Glucose [Mass/Vol] 109 mg/dL High 70-100 [facility] Comment on above: Performed By: #### C A19O, LUPUS #### The performing lab is in the report. #### NSEO #### [facility] #### HEMDF, LDH3, BMP3, MG3, PT, CEA2 #### [address] [place] [address] #### B2GPM, B2GPA, B2GPG #### [address] Urea nitrogen [Mass/Vol] 18 mg/dL High 7-17 [facility] Comment on above: Performed By: #### C A19O, LUPUS #### The performing lab is in the report. #### NSEO #### [facility] #### HEMDF, LDH3, BMP3, MG3, PT, CEA2 #### [address] [place] [address] #### B2GPM, B2GPA, B2GPG #### [address] Creatinine [Mass/Vol] 0.82 mg/dL Normal 0.52-1.25 [facility] Comment on above: Performed By: #### C A19O, LUPUS #### The performing lab is in the report. #### NSEO #### [facility] #### HEMDF, LDH3, BMP3, MG3, PT, CEA2 #### [address] [place] [address] #### B2GPM, B2GPA, B2GPG #### [address] GFR/1.73 sq M.predicted among blacks MDRD (S/P/Bld) [Vol rate/Area] mL/min/{1.73_m2} Normal >60 [facility] Comment on above: Performed By: #### C A19O, LUPUS #### The performing lab is in the report. #### NSEO #### [facility] #### HEMDF, LDH3, BMP3, MG3, PT, CEA2 #### [facility] [address] [place] [address] #### B2GPM, B2GPA, B2GPG #### [facility] [address] [place] [address] GFR/1.73 sq M.predicted among non-blacks MDRD (S/P/Bld) [Vol rate/Area] 89.9 mL/min/{1.73_m2} Normal >60 [facility] Comment on above: Result Comment: KDIG [...] tubular creatinine secretion. Performed By: #### Eileen A19O, LUPUS #### The performing lab is in the report. #### NSEO #### [facility] #### HEMDF, LDH3, BMP3, MG3, PT, CEA2 #### [facility] [address] [place] [address] #### B2GPM, B2GPA, B2GPG #### [facility] [address] [place] [address] Chloride [Moles/Vol] 104 mmol/L Normal 98-107 [facility] Comment on above: Performed By: #### C A19O, LUPUS #### The performing lab is in the report. #### NSEO #### [facility] #### HEMDF, LDH3, BMP3, MG3, PT, CEA2 #### [place] [address] [place] [address] #### B2GPM, B2GPA, B2GPG #### [address] Potassium [Moles/Vol] 3.9 mmol/L Normal 3.5-5.1 [facility] Comment on above: Performed By: #### C A19O, LUPUS #### The performing lab is in the report. #### NSEO #### [facility] #### HEMDF, LDH3, BMP3, MG3, PT, CEA2 #### [place] [address] [place] [address] #### B2GPM, B2GPA, B2GPG #### [address] Sodium [Moles/Vol] 142 mmol/L Normal 135-145 [facility] Comment on above: Performed By: #### C A19O, LUPUS #### The performing lab is in the report. #### NSEO #### [facility] #### HEMDF, LDH3, BMP3, MG3, PT, CEA2 #### [place] [address] [place] [address] #### B2GPM, B2GPA, B2GPG #### [address] Anion gap [Moles/Vol] 10 mmol/L 3 - 13 mmol/L [facility] Work Phone: Calcium [Mass/Vol] 9.6 mg/dL 8.4 - 10. 4 mg/dL [facility] Work Phone: [phone] Chloride [Moles/Vol] 104 mmol/L 98 - 10 7 mmol/L [facility] Work Phone: [phone] CO2 [Moles/Vol] 27 mmol/L 22 - 30 mmol/L [facility] Work Phone: Creatinine [Mass/Vol] 0.82 mg/dL 0.52 - 1.25 mg/dL [facility] Work Phone: EGFR IF NonAfrican Montserratian 89.9 mL/min >60 [facility] Work Phone: [phone] Comment on above: KDIGO guidelines pro [...] MDRD (S/P/Bld) [Vol rate/Area] mL/min/{1.73_m2} >60 mL/min [facility] Work Phone: [phone] Glucose [Mass/Vol] 109 mg/dL High 70 - 100 mg/dL [facility] Work Phone: [phone] Interpretation and review of laboratory results Abnormal [facility] Work Phone: [phone] Potassium [Moles/Vol] 3.9 mmol/L 3.5 - 5.1 mmol/L [facility] Work Phone: Sodium [Moles/Vol] 142 mmol/L 135 - 145 mmol/L [facility] Work Phone: Urea nitrogen (BldV) [Mass/Vol] 18 mg/dL High 7 - 17 mg/dL [facility] Work Phone: CBC with Auto Differentialon 10-23-2021 Absolute Baso # 0.1 10*3/uL 0.0 - 0.2 10*3/uL [facility] Work Phone: [phone] Absolute Neut # 6.6 10*3/uL 1.8 - 7.0 10*3/uL [facility] Work Phone: [phone] Basophils/100 WBC (Bld) 1.1 % 0.0 - 2.0 % [facility] Work Phone: [phone] Eosinophils (Bld) [#/Vol] 0.4 10*3/uL 0.0 - 0.5 10*3/uL [facility] Work Phone: [phone] Eosinophils/100 WBC (Bld) 3.9 % 1.0 - 6.0 % [facility] Work Phone: [phone] Granulocytes/100 WBC (Bld) 64.0 % 40.0 - 80.0 % [facility] Work Phone: [phone] Hematocrit (Bld) [Volume fraction] 35.1 % Low 40.0 - 52.0 % [facility] Work Phone: [phone] Hemoglobin (Bld) [Mass/Vol] 11.6 g/dL Low 13.0 - 18.0 g/dL [facility] Work Phone: [phone] Interpretation and review of laboratory results Abnormal [facility] Work Phone: [phone] Lymphocytes (Bld) [#/Vol] 2.6 10*3/uL 1.0 - 4.3 10*3/uL [facility] Work Phone: [phone] Lymphocytes/100 WBC (Bld) 25.0 % 20.0 - 40.0 % [facility] Work Phone: [phone] MCH (RBC) [Entitic mass] 28.4 pg 26.0 - 34.0 pg [facility] Work Phone: [phone] MCHC (RBC) [Mass/Vol] 33.1 % 32.0 - 36.0 % [facility] Work Phone: [phone] MCV (RBC) [Entitic vol] 85.9 fL 80.0 - 98.0 fL [facility] Work Phone: [phone] Monocytes (Bld) [#/Vol] 0.6 10*3/uL 0.0 - 0.8 10*3/uL [facility] Work Phone: [phone] Monocytes/100 WBC (Bld) 6.0 % 2.0 - 10.0 % [facility] Work Phone: [phone] Platelet distribution width (Bld) [Ratio] 17.4 % High 11.5 - 14.5 % [facility] Work Phone: [phone] Platelet mean volume (Bld) [Entitic vol] 8.1 fL 7.4 - 12.4 fL [facility] Work Phone: [phone] Comment on above: MPV is a calculated measurement using platelet volume ratio. Platelets (Bld) [#/Vol] 450 10*3/uL High 140 - 440 10*3/uL [facility] Work Phone: [phone] RBC (Bld) [#/Vol] 4.08 10*6/uL Low 4.40 - 5.9 0 10*6/uL [facility] Work Phone: [phone] WBC (Bld) [#/Vol] 10.3 10*3/uL 3.6 - 10.7 10*3/uL [facility] Work Phone: [phone] Test Performed by [facility], [address] LAB [facility] Work Phone: [phone] CEAon 10-23-2021 CEA 0.8 ng/mL 0.0 - 3.0 ng/mL [facility] Work Phone: [phone] Test Performed by [facility], [address] LAB [facility] Work Phone: [phone] Carcinoembryonic Agon 2021 Carcinoembryonic Ag. 0.8 ng/mL Normal 0.0-3.0 [facility] Comment on above: Performed By: #### C A19O, LUPUS #### The performing lab is in the report. #### NSEO #### [facility] #### HEMDF, LDH3, BMP3, MG3, PT, CEA2 #### [facility] [address] [place] [address] #### B2GPM, B2GPA, B2GPG #### [address] Hemogram w/ Autodiffon 10-23 Abs Baso Cnt 0.1 10*3/uL Normal 0.0-0.2 [facility] Comment on above: Performed By: #### C A19O, LUPUS #### The performing lab is in the report. #### NSEO #### [facility] #### HEMDF, LDH3, BMP3, MG3, PT, CEA2 #### [facility] [address] [place], [place] #### B2GPM, B2GPA, B2GPG #### [address] Abs Neutrophile Cnt 6.6 10*3/uL Normal 1.8-7.0 [facility] Comment on above: Performed By: #### C A19O, LUPUS #### The performing lab is in the report. #### NSEO #### [facility] #### HEMDF, LDH3, BMP3, MG3, PT, CEA2 #### [facility] [address] [place] #### B2GPM, B2GPA, B2GPG #### [address] Basophils/100 WBC (Bld) 1.1 % Normal 0.0-2.0 [facility] Comment on above: Performed By: #### C A19O, LUPUS #### The performing lab is in the report. #### NSEO #### [facility] #### HEMDF, LDH3, BMP3, MG3, PT, CEA2 #### [facility] [address] [place] #### B2GPM, B2GPA, B2GPG #### [address] Eosinophils (Bld) [#/Vol] 0.4 10*3/uL Normal 0.0-0.5 [facility] Comment on above: Performed By: #### C A19O, LUPUS #### The performing lab is in the report. #### NSEO #### [facility] #### HEMDF, LDH3, BMP3, MG3, PT, CEA2 #### [facility] [address] [place] [address] #### B2GPM, B2GPA, B2GPG #### [address] [phone] Eosinophils/100 WBC (Bld) 3.9 % Normal 1.0-6.0 [facility] Comment on above: Performed By: #### C A19O, LUPUS #### The performing lab is in the report. #### NSEO #### [facility] #### HEMDF, LDH3, BMP3, MG3, PT, CEA2 #### [facility] [address] [place] [address] #### B2GPM, B2GPA, B2GPG #### [address] [phone] Erythrocyte distribution width (RBC) [Ratio] 17.4 % High 11.5-14.5 [facility] Comment on above: Performed By: #### C A19O, LUPUS #### The performing lab is in the report. #### NSEO #### [facility] #### HEMDF, LDH3, BMP3, MG3, PT, CEA2 #### [facility] [address] [place] [address] #### B2GPM, B2GPA, B2GPG #### [address] [phone] Granulocytes/100 WBC (Bld) 64.0 % Normal 40.0-80.0 [facility] Comment on above: Performed By: #### C A19O, LUPUS #### The performing lab is in the report. #### NSEO #### [facility] #### HEMDF, LDH3, BMP3, MG3, PT, CEA2 #### [place] [address] [place] #### B2GPM, B2GPA, B2GPG #### [address] Hematocrit (Bld) [Volume fraction] 35.1 % Low 40.0-52.0 [facility] Comment on above: Performed By: #### C A19O, LUPUS #### The performing lab is in the report. #### NSEO #### [facility] #### HEMDF, LDH3, BMP3, MG3, PT, CEA2 #### [address] [place] #### B2GPM, B2GPA, B2GPG #### [address] Hemoglobin (Bld) [Mass/Vol] 11.6 g/dL Low 13.0-18.0 [facility] Comment on above: Performed By: #### C A19O, LUPUS #### The performing lab is in the report. #### NSEO #### [facility] #### HEMDF, LDH3, BMP3, MG3, PT, CEA2 #### [address] [place] #### B2GPM, B2GPA, B2GPG #### [address] Lymphocytes (Bld) [#/Vol] 2.6 10*3/uL Normal 1.0-4.3 [facility] Comment on above: Performed By: #### C A19O, LUPUS #### The performing lab is in the report. #### NSEO #### [facility] #### HEMDF, LDH3, BMP3, MG3, PT, CEA2 #### [address] [place] #### B2GPM, B2GPA, B2GPG #### [address] Lymphocytes/100 WBC (Bld) 25.0 % Normal 20.0-40.0 [facility] Comment on above: Performed By: #### C A19O, LUPUS #### The performing lab is in the report. #### NSEO #### [facility] #### HEMDF, LDH3, BMP3, MG3, PT, CEA2 #### [facility] [address] [place] [address] #### B2GPM, B2GPA, B2GPG #### [address] MCH (RBC) [Entitic mass] 28.4 pg Normal 26.0-34.0 [facility] Comment on above: Performed By: #### C A19O, LUPUS #### The performing lab is in the report. #### NSEO #### [facility] #### HEMDF, LDH3, BMP3, MG3, PT, CEA2 #### [facility] [address] [place] #### B2GPM, B2GPA, B2GPG #### [address] MCHC 33.1 % Normal 32.0-36.0 [facility] Comment on above: Performed By: #### C A19O, LUPUS #### The performing lab is in the report. #### NSEO #### [facility] #### HEMDF, LDH3, BMP3, MG3, PT, CEA2 #### [facility] [address] [place] #### B2GPM, B2GPA, B2GPG #### [address] MCV (RBC) [Entitic vol] 85.9 fL Normal 80.0-98.0 [facility] Comment on above: Performed By: #### C A19O, LUPUS #### The performing lab is in the report. #### NSEO #### [facility] #### HEMDF, LDH3, BMP3, MG3, PT, CEA2 #### [place] [address] [place] #### B2GPM, B2GPA, B2GPG #### [address] Monocytes (Bld) [#/Vol] 0.6 10*3/uL Normal 0.0-0.8 [facility] Comment on above: Performed By: #### C A19O, LUPUS #### The performing lab is in the report. #### NSEO #### [facility] #### HEMDF, LDH3, BMP3, MG3, PT, CEA2 #### [address] [place] #### B2GPM, B2GPA, B2GPG #### [address] Monocytes/100 WBC (Bld) 6.0 % Normal 2.0-10.0 [facility] Comment on above: Performed By: #### C A19O, LUPUS #### The performing lab is in the report. #### NSEO #### [facility] #### HEMDF, LDH3, BMP3, MG3, PT, CEA2 #### [address] [facility] [place] [place] #### B2GPM, B2GPA, B2GPG #### [address] Platelet mean volume (Bld) [Entitic vol] 8.1 fL Normal 7.4-12.4 [facility] Comment on above: Result Comment: MPV is a calculated measurement using platelet volume ratio. Performed By: #### C A19O, LUPUS #### The performing lab is in the report. #### NSEO #### [facility] #### HEMDF, LDH3, BMP3, MG3, PT, CEA2 #### [place] [address] [place] #### B2GPM, B2GPA, B2GPG #### [place] [address] [place], [place] Platelets (Bld) [#/Vol] 450 10*3/uL High 140-440 [facility] Comment on above: Performed By: #### C A19O, LUPUS #### The performing lab is in the report. #### NSEO #### [facility] #### HEMDF, LDH3, BMP3, MG3, PT, CEA2 #### [facility] [address] [place], [place] #### B2GPM, B2GPA, B2GPG #### [address] RBC (Bld) [#/Vol] 4.08 10*6/uL Low 4.40-5.90 [facility] Comment on above: Performed By: #### C A19O, LUPUS #### The performing lab is in the report. #### NSEO #### [facility] #### HEMDF, LDH3, BMP3, MG3, PT, CEA2 #### [facility] [address] [place] #### B2GPM, B2GPA, B2GPG #### [address] WBC (Bld) [#/Vol] 10.3 10*3/uL Normal 3.6-10.7 [facility] Comment on above: Performed By: #### C A19O, LUPUS #### The performing lab is in the report. #### NSEO #### [facility] #### HEMDF, LDH3, BMP3, MG3, PT, CEA2 #### [facility] [address] [place] [address] #### B2GPM, B2GPA, B2GPG #### [address] LDHon 10-23-2021 LDH 136 U/L Normal 120-246 [facility] Comment on above: Performed By: #### C A19O, LUPUS #### The performing lab is in the report. #### NSEO #### [facility] #### HEMDF, LDH3, BMP3, MG3, PT, CEA2 #### [facility] [address] [place] [address] #### B2GPM, B2GPA, B2GPG #### [facility] [address] [place] [address] Lactate Dehydrogenaseon - LD 136 U/L 120 - 246 U/L [facility] Work Phone: MRI ABDOMEN WO CONTRASTon Patient Name: ANDREW SIFUENTES [facility] ACCESSION EXAM DATE/TIME PROCEDURE ORDERING PROVIDER [id number] 10/23/2021 11:08 EDT MRI Abdomen w/o Contrast DONOVAN SRIVASTAVAW CPT code 26643 Reason For Exam (MRI Abdomen w/o Contrast) [...] Imaging ACCESSION EXAM DATE/TIME PROCEDURE ORDERING PROVIDER [id number] 10/23/2021 11:08 EDT MRI Abdomen w/o Contrast WING SRIVASTAVA CPT code 45814 Reason For Exam (MRI Abdomen w/o Contrast) [...] Result on 10-23-2021 [facility] w/o Contraston 0 10-23-2021 MRI Abdomen w/o Contrast Patient [facility]: [id number] Imaging ACCESSION EXAM DATE/TIME PROCEDURE ORDERING PROVIDER [id number] 10/23/2021 11:08 EDT MRI Abdomen w/o Contrast WING SRIVASTAVA CPT code 77866 Reason For Exam (MRI Abdomen w/o Contrast) [...] Transcribed Date and Time: 10/23/2021 4:36 Normal [facility] Magnesiumon 10-23-2021 Magnesium [Mass/Vol] 2.1 mg/dL Normal 1.6-2.3 [facility] Comment on above: Performed By: #### C A19O, LUPUS #### The performing lab is in the report. #### NSEO #### [facility] #### HEMDF, LDH3, BMP3, MG3, PT, CEA2 #### [facility] [address] [place] [address] #### B2GPM, B2GPA, B2GPG #### [address] [phone] Magnesium [Mass/Vol] 2.1 mg/dL 1.6 - 2 .3 mg/dL [facility] Work Phone: No Panel Informationon 10-23 Test Performed by [facility], [address] [place] [id number] [place] [address] LAB [facility] Work Phone: Prothrombin Timeon 2 INR 1.1 Normal 0.9-1.1 [facility] Comment on above: Result Comment: Harry [...] HEMDF, LDH3, BMP3, MG3, PT, CEA2 #### [address] [place] [address] #### B2GPM, B2GPA, B2GPG #### [address] [phone] PT Coag (PPP) [Time] 12.2 s High 9.0-12.0 [facility] Comment on above: Result Comment: . Performed By: #### C A19O, LUPUS #### The performing lab is in the report. #### NSEO #### [facility] #### HEMDF, LDH3, BMP3, MG3, PT, CEA2 #### [address] [place] [address] #### B2GPM, B2GPA, B2GPG #### [address] [phone] Protime-INRon 10-23-2021 INR Coag (Bld) [Relative time] 1.1 {INR} [facility] Work Phone: Comment on above: Recommended [...] of laboratory results Abnormal [facility] Work Phone: PT Coag (PPP) [Time] 12.2 s High 9.0 - 12.0 s [facility] Work Phone: Comment on above: . Test Performed by [facility], [address] [place] [address] [facility] LAB [facility] Work Phone: Basic Metabolic Panelon 10-05-2021 Calcium [Mass/Vol] 8.9 mg/dL Normal 8.4-10.4 [facility] Comment on above: Performed By: #### P T #### [facility] [address] [place] [address] Glucose [Mass/Vol] 110 mg/dL High 70-100 [facility] Comment on above: Performed By: #### P T #### [facility] [address] [place] [address] Urea nitrogen [Mass/Vol] 14 mg/dL Normal 7-17 [facility] Comment on above: Performed By: #### P T #### [facility] [address] [place] [address] Anion gap [Moles/Vol] 7 mmol/L Normal 3-13 [facility] Comment on above: Performed By: #### P T #### [facility] [address] [place] [address] CO2 [Moles/Vol] 26 mmol/L Normal 22-30 [facility] Comment on above: Performed By: #### P T #### [facility] [address] [place] [address] Creatinine [Mass/Vol] 0.71 mg/dL Normal 0.52-1.25 [facility] Comment on above: Performed By: #### P T #### [facility] [address] [place] [address] eGFR OTHER > 90.0 Normal >60 [facility] Comment on above: Result Comment: KDIG [...] secretion. Performed By: #### P T #### [facility] [address] [place] [address] GFR/1.73 sq M.predicted among blacks MDRD (S/P/Bld) [Vol rate/Area] mL/min/{1.73_m2} Normal >60 [facility] Center Comment on above: Performed By: #### P T #### [facility] [address] [place] [address] Potassium [Moles/Vol] 3.8 mmol/L Normal 3.5-5.1 [facility] Comment on above: Performed By: #### P T #### [facility] [address] [place] [address] Chloride [Moles/Vol] 106 mmol/L Normal 98-107 [facility] Comment on above: Performed By: #### P T #### [facility] [address] [place] [address] Sodium [Moles/Vol] 139 mmol/L Normal 135-145 [facility] Comment on above: Performed By: #### P T #### [place] [address] [place] [address] Anion gap [Moles/Vol] 7 mmol/L 3 - 13 mmol/L [facility] Calcium [Mass/Vol] 8.9 mg/dL 8.4 - 10. 4 mg/dL [facility] Chloride [Moles/Vol] 106 mmol/L 98 - 10 7 mmol/L [facility] CO2 [Moles/Vol] 26 mmol/L 22 - 30 mmol/L [facility] Creatinine [Mass/Vol] 0.71 mg/dL 0.52 - 1.25 mg/dL [facility] EGFR IF NonAfrican Montserratian >90.0 >60 mL/min [facility] Comment on above: [...] 10*3/uL [facility] Test Performed by [facility], [address] [place], [place] [id number] [place] [address] [facility]domen Pelvis Wo Umair johnston 10-22-2021 Patient Name: ANDREW SIFUENTES Computed Tomography ACCESSION EXAM DATE/TIME PROCEDURE ORDERING PROVIDER [id number] 10/22/2021 13:[address] Abdomen/Pelvis (No WING SRIVASTAVA PO, No IV) CPT code 66839 Reason For Exam (CT Abdomen/Pelvis (No PO, [...] HARLAN Transcribed Date and Time: 10/22/2021 2:37 [facility] Humphrey Melton MD - 10/22/2021 Patient Name: ANDREW SIFUENTES Computed Tomography ACCESSION EXAM DATE/TIME PROCEDURE ORDERING PROVIDER [id number] 10/22/2021 13:[address] Abdomen/Pelvis (No SRIVASTAVA, WING PO, No IV) CPT code 26419 Reason For Exam (CT Abdomen/Pelvis (No PO, [...] Tomography ACCESSION EXAM DATE/TIME PROCEDURE ORDERING PROVIDER [id number] 10/22/2021 13:[address] Abdomen/Pelvis (No SRIVASTAVA, WING PO, No IV) CPT code 67332 Reason For Exam (CT Abdomen/Pelvis (No PO, [...] Transcribed Date and Time: 10/22/2021 2:37 Normal [facility] Hemogram w/ Autodiffon 10-22 Abs Baso Cnt 0.1 10*3/uL Normal 0.0-0.2 [facility] Comment on above: Performed By: #### P T #### [facility] [address] [place] [address] Abs Neutrophile Cnt 6.0 10*3/uL Normal 1.8-7.0 [facility] Comment on above: Performed By: #### P T #### [facility] [address] [place] [address] Basophils/100 WBC (Bld) 1.0 % Normal 0.0-2.0 [facility] Comment on above: Performed By: #### P T #### [facility] [address] [place] [address] Eosinophils (Bld) [#/Vol] 0.3 10*3/uL Normal 0.0-0.5 [facility] Comment on above: Performed By: #### P T #### [facility] [address] [place] [address] Eosinophils/100 WBC (Bld) 3.0 % Normal 1.0-6.0 [facility] Comment on above: Performed By: #### P T #### [facility] [address] [place] [address] Erythrocyte distribution width (RBC) [Ratio] 17.1 % High 11.5-14.5 [facility] Comment on above: Performed By: #### P T #### [facility] [address] [place] [address] Granulocytes/100 WBC (Bld) 64.1 % Normal 40.0-80.0 [facility] Comment on above: Performed By: #### P T #### [facility] [address] [place] [address] Hematocrit (Bld) [Volume fraction] 33.4 % Low 40.0-52.0 [facility] Comment on above: Performed By: #### P T #### [facility] [address] [place] [address] Hemoglobin (Bld) [Mass/Vol] 10.9 g/dL Low 13.0-18.0 [facility] Comment on above: Performed By: #### P T #### [facility] [address] [place] [address] Lymphocytes (Bld) [#/Vol] 2.5 10*3/uL Normal 1.0-4.3 [facility] Comment on above: Performed By: #### P T #### [facility] [address] [place] [address] Lymphocytes/100 WBC (Bld) 26.3 % Normal 20.0-40.0 [facility] Comment on above: Performed By: #### P T #### [place] [address] [place] [address] MCH (RBC) [Entitic mass] 28.2 pg Normal 26.0-34.0 [facility] Comment on above: Performed By: #### P T #### [place] [address] [place] [address] MCHC 32.7 % Normal 32.0-36.0 [facility] Comment on above: Performed By: #### P T #### [facility] [address] [place] [address] MCV (RBC) [Entitic vol] 86.3 fL Normal 80.0-98.0 [facility] Comment on above: Performed By: #### P T #### [place] [address] [place] [address] Monocytes (Bld) [#/Vol] 0.5 10*3/uL Normal 0.0-0.8 [facility] Comment on above: Performed By: #### P T #### [facility] [address] [place] [address] Monocytes/100 WBC (Bld) 5.6 % Normal 2.0-10.0 [facility] Comment on above: Performed By: #### P T #### [place] [address] [place] [address] Platelet mean volume (Bld) [Entitic vol] 7.6 fL Normal 7.4-12.4 [facility] Comment on above: Result Comment: MPV is a calculated measurement using platelet volume ratio. Performed By: #### P T #### [place] [address] [place] [address] Platelets (Bld) [#/Vol] 369 10*3/uL Normal 140-440 [facility] Comment on above: Performed By: #### P T #### [facility] [address] [place] [address] RBC (Bld) [#/Vol] 3.87 10*6/uL Low 4.40-5.90 [facility] Comment on above: Performed By: #### P T #### [facility] [address] [place] [address] WBC (Bld) [#/Vol] 9.4 10*3/uL Normal 3.6-10.7 [facility] Comment on above: Performed By: #### P T #### [facility] [address] [place] [address] Magnesiumon 10-22-2021 Magnesium [Mass/Vol] 2.0 mg/dL Normal 1.6-2.3 [facility] Comment on above: Performed By: #### P T #### [facility] [address] [place] [address] Magnesium [Mass/Vol] 2.0 mg/dL 1.6 - 2 .3 mg/dL [facility] No Panel Informationon 10-22 Radiology Study observation (narrative) [facility] Work Phone: Test Performed by [facility], [address] [place] [address] [facility] LAB [facility] Prothrombin Timeon 2 INR 1.1 Normal 0.9-1.1 [facility] Comment on above: Result Comment: Harry [...] HEMDF, LDH3, BMP3, MG3, PT, CEA2 #### [facility] [address] [place] [address] #### B2GPM, B2GPA, B2GPG #### [facility] [address] [place] [address] PT Coag (PPP) [Time] 11.8 s Normal 9.0-12.0 [facility] Comment on above: Result Comment: . Performed By: #### C A19O, LUPUS #### The performing lab is in the report. #### NSEO #### [facility] #### HEMDF, LDH3, BMP3, MG3, PT, CEA2 #### [facility] [address] [place] [address] #### B2GPM, B2GPA, B2GPG #### [facility] [address] [place] [address] Protime-INRon 10-22-2021 INR Coag (Bld) [Relative time] 1.1 {INR} [facility] Work Phone: Comment on above: Recommended [...] [Time] 11.8 s 9.0 - 12.0 s [facility] Work Phone: Comment on above: . Test Performed by [facility], [address] [place], [place] [address] [facility] LAB [facility] Work Phone: VL Ankle Art Brachial Indice s Extremity Bilateralon 10-22-2021 [facility] Ankle Brachial Index Report Patient DO GurpreetB: 1950 Study 10/21/2021 Name: Andrew Gonzalez (71yrs) Date: Age: 71 Account: [id number] Gender: M Loc: 444W BP: Ordering Physician: Shruthi Malik Circuit Court Judge: Rody Cross RDMS, RVT Interpreting Physician: Carina Call Location: [facility] Indications: Foot wounds. Originally ordered as a full PVR. Ordering PAYROLL SPECIALIST had to modify the order to ABIs [...] supine position. Images were obtained using a [employer] vascular ultrasound machine. Arterial pressure indices: + [...] by Carina Call 10/22/2021 13:21 [facility] Carina Call MD - 10/22/2021 [facility] Ankle Brachial Index Report Patient RADHA Sifuentes: 1950 Study 10/21/2021 Name: Adnrew Gonzalez (71yrs) Date: Age: 71 Account: [id number] Gender: M Loc: 444W BP: Ordering Physician: Shruthi Malik Circuit Court Judge: Rody Cross RDMS, RVT Interpreting Physician: Carina Call Location: [facility] Indications: Foot wounds. Originally ordered as a full PVR. Ordering PAYROLL SPECIALIST had to modify the order to ABIs [...] supine position. Images were obtained using a [employer] vascular ultrasound machine. Arterial pressure indices: + [...] electronically signed by Carina Call 10/22/2021 13:21 [facility] Work Phone: [facility] Work Phone: Basic Metabolic Panelon 10-05 Calcium [Mass/Vol] 9.1 mg/dL Normal 8.4-10.4 [facility] Comment on above: Performed By: #### C OVAG #### [facility] [address] [place] [address] Anion gap [Moles/Vol] 6 mmol/L Normal 3-13 [facility] Comment on above: Performed By: #### C OVAG #### [facility] [address] [place] [address] CO2 [Moles/Vol] 29 mmol/L Normal 22-30 [facility] Comment on above: Performed By: #### C OVAG #### [facility] [address] [place] [address] Creatinine [Mass/Vol] 0.90 mg/dL Normal 0.52-1.25 [facility] Comment on above: Performed By: #### C OVAG #### [facility] [address] [place] [address] GFR/1.73 sq M.predicted among blacks MDRD (S/P/Bld) [Vol rate/Area] mL/min/{1.73_m2} Normal >60 [facility] Comment on above: Performed By: #### C OVAG #### [facility] [address] [place] [address] GFR/1.73 sq M.predicted among non-blacks MDRD (S/P/Bld) [Vol rate/Area] 86.6 mL/min/{1.73_m2} Normal >60 [facility] Comment on above: Result Comment: KDIG [...] secretion. Performed By: #### C OVAG #### [facility] [address] [place] [address] Glucose [Mass/Vol] 106 mg/dL High 70-100 [facility] Comment on above: Performed By: #### C OVAG #### [facility] [address] [place] [address] Urea nitrogen [Mass/Vol] 18 mg/dL High 7-17 [facility] Comment on above: Performed By: #### C OVAG #### [facility] [address] [place] [address] Chloride [Moles/Vol] 105 mmol/L Normal 98-107 [facility] Comment on above: Performed By: #### C OVAG #### [facility] [address] [place] [address] Potassium [Moles/Vol] 4.3 mmol/L Normal 3.5-5.1 [facility] Comment on above: Performed By: #### C OVAG #### [facility] [address] [place] [address] Sodium [Moles/Vol] 139 mmol/L Normal 135-145 [facility] Comment on above: Performed By: #### C OVAG #### [facility] [address] [place] [address] Anion gap [Moles/Vol] 6 mmol/L 3 - 13 mmol/L [facility] Calcium [Mass/Vol] 9.1 mg/dL 8.4 - 10. 4 mg/dL [facility] Chloride [Moles/Vol] 105 mmol/L 98 - 10 7 mmol/L [facility] CO2 [Moles/Vol] 29 mmol/L 22 - 30 mmol/L [facility] Creatinine [Mass/Vol] 0.9 mg/dL 0.52 - 1.25 mg/dL [facility] EGFR IF NonAfrican Montserratian 86.6 mL/min >60 [facility] Comment on above: KDIGO guidelines pro [...] mg/dL [facility] Test Performed by [facility], [address] [place], [place], [place] [id number] [place] [address] LAB [facility] C-Reactive Proteinon 022 CRP [Mass/Vol] 33.5 mg/L High 0.0-9.9 [facility] Comment on above: Result Comment: . Performed By: #### P T #### [facility] [address] [place] [address] CRP [Mass/Vol] 33.5 mg/L High 0.0 - 9.9 mg/L [facility] Comment on above: . Interpretation and review of laboratory results Abnormal [facility] Test Performed by [facility], [address] [place], [address] LAB [facility] CR Calcaneus 2+ Views Lefton 10-21-2021 CR Calcaneus 2+ Views Left [facility]: [id number] Diagnostic Radiology ACCESSION EXAM DATE/TIME PROCEDURE ORDERING PROVIDER [id number] 10/21/2021 15:30 EDT CR Calcaneus 2+ Views [id number] -SHRUTHI MALIK Left CPT code 38917 Reason For Exam (CR Calcaneus 2+ Views [...] Transcribed Date and Time: 10/21/2021 4:33 Normal [facility] CR Chest 1 View Frontalon CR Chest 1 View Frontal Patient Name: ANDREW SIFUENTES Diagnostic Radiology ACCESSION EXAM DATE/TIME PROCEDURE ORDERING PROVIDER [id number] 10/21/2021 08:16 EDT CR Chest 1 View Frontal [id number] MAY BOGGS CPT code 73370 Reason For Exam (CR Chest 1 View [...] Transcribed Date and Time: 10/21/2021 8:33 Normal [facility] D-Dimer, Innovanceon 022 D-Dimer, Innovance 1.51 mg/L High <0.19-0.50 [facility] Comment on above: Result Comment: Inno saba D-Dimer values of <0.50 mg/L FEU can be used in combination with a pre-test probability model (e.g. Well's) to exclude pulmonary embolism (PE) disease, as well as an aid in the diagnosis of deep vein thrombosis (DVT). Performed By: #### P T #### [facility] [address] [place] [address] D-Dimer, Quantitativeon 10-05 D-Dimer, Quant 1.51 mg/L High <0.19 - 0.50 [facility] Comment on above: [facility] D-Dimer va lues of <0.50 mg/L FEU can be used in combination with a pre-test probability model (e.g. Well's) to exclude pulmonary embolism (PE) disease, as well as an aid in the diagnosis of deep vein thrombosis (DVT). Interpretation and review of laboratory results Abnormal [facility] Test Performed by [facility], [address] [place], [place], [place] [address] [facility] ED Provider Noteon 2 ED Provider Note [facility] ED EMERGENCY DEPARTMENT ENCOUNTER Pt [...] (HCC) ? Kidney stone ? Neuropathy ? 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 Attends [employer] Services: Not on file ? Active Member [...] LUNGS: Respirations (more content not included)... Normal [facility] Hemogramon 10-21-2021 Erythrocyte distribution width (RBC) [Ratio] 17.3 % High 11.5-14.5 [facility] Comment on above: Performed By: #### C OVAG #### [facility] [address] [place] [address] Hematocrit (Bld) [Volume fraction] 33.6 % Low 40.0-52.0 [facility] Comment on above: Performed By: #### C OVAG #### [facility] [address] [place] [address] Hemoglobin (Bld) [Mass/Vol] 10.9 g/dL Low 13.0-18.0 [facility] Comment on above: Performed By: #### C OVAG #### [facility] [address] [place] [address] MCH (RBC) [Entitic mass] 27.8 pg Normal 26.0-34.0 [facility] Comment on above: Performed By: #### C OVAG #### [facility] [address] [place] [address] MCHC 32.5 % Normal 32.0-36.0 [facility] Comment on above: Performed By: #### C OVAG #### [facility] [address] [place] [address] MCV (RBC) [Entitic vol] 85.6 fL Normal 80.0-98.0 [facility] Comment on above: Performed By: #### C OVAG #### [facility] [address] [place] [address] Platelet mean volume (Bld) [Entitic vol] 7.7 fL Normal 7.4-12.4 [facility] Comment on above: Result Comment: MPV is a calculated measurement using platelet volume ratio. Performed By: #### C OVAG #### [facility] [address] [place] [address] Platelets (Bld) [#/Vol] 404 10*3/uL Normal 140-440 [facility] Comment on above: Performed By: #### C OVAG #### [facility] [address] [place] [address] RBC (Bld) [#/Vol] 3.93 10*6/uL Low 4.40-5.90 [facility] Comment on above: Performed By: #### C OVAG #### [facility] [address] [place] [address] WBC (Bld) [#/Vol] 11.6 10*3/uL High 3.6-10.7 [facility] Comment on above: Performed By: #### C OVAG #### [facility] [address] [place] [address] Hemogram (CBC)on 10-21-2021 Hematocrit (Bld) [Volume fraction] 33.6 % Low 40.0 - 52.0 % [facility] Hemoglobin (Bld) [Mass/Vol] 10.9 g/dL Low 13.0 - 18.0 g/dL [facility] Interpretation and review of laboratory results [...] vol] 7.7 fL 7.4 - 12.4 fL [facility] Comment on above: MPV is a calculated measurement using platelet volume ratio. Platelets (Bld) [#/Vol] 404 10*3/uL 140 - 440 10*3/uL [facility] RBC (Bld) [#/Vol] 3.93 10*6/uL Low 4.40 - 5.9 0 10*6/uL [facility] WBC (Bld) [#/Vol] 11.6 10*3/uL High 3.6 - 10.7 10*3/uL [facility] Test Performed by [facility], [address] [place], [place] [address] [facility] NM LUNG VENT/PERFUSION (VQ)o n 10-21-2021 Patient Name: ANDREW SIFUENTES Nuclear Medicine ACCESSION EXAM DATE/TIME PROCEDURE ORDERING PROVIDER [id number] 10/21/2021 07:55 EDT [place] Pulmonary Perfusion [id number] -MAY CASH w/ Vent Aerosol CPT code 93229 A9567 Reason For Exam (NM Pulmonary Perfusion [...] JOHN Transcribed Date and Time: 10/21/2021 8:49 [facility] Henry Harvey MD - 10/21/2021 Patient Name: ANDREW SIFUENTES Nuclear Medicine ACCESSION EXAM DATE/TIME PROCEDURE ORDERING PROVIDER [id number] 10/21/2021 07:55 EDT NM Pulmonary Perfusion [id number] -MAY CASH w/ Vent Aerosol CPT code 15906 A9567 Reason For Exam (NM Pulmonary Perfusion [...] JOHN Transcribed Date and Time: 10/21/2021 8:49 [facility] Work Phone: NM LUNG VENT/PERFUSION (VQ)O rdered By: Henry Harvey on 10-21-2021 [facility] Work Phone: NM Pulmonary Perfusion w/ Ve nt Aerosol or Gason 10-21-2021 NM Pulmonary Perfusion w/ Vent Aerosol or Gas Patient Name: ANDREW SIFUENTES Nuclear Medicine ACCESSION EXAM DATE/TIME PROCEDURE ORDERING PROVIDER [id number] 10/21/2021 07:55 EDT NM Pulmonary Perfusion [id number] MAY BOGGS w/ Vent Aerosol CPT code 00133 A9567 Reason For Exam (NM Pulmonary Perfusion [...] Transcribed Date and Time: 10/21/2021 8:49 Normal [facility] No Panel Informationon 10-21 Radiology Study observation (narrative) [facility] Work Phone: Prothrombin Timeon 2 INR 1.1 Normal 0.9-1.1 [facility] Comment on above: Result Comment: Harry [...] Infarction Performed By: #### C OVAG #### [facility] [address] [place] [address] PT Coag (PPP) [Time] 11.5 s Normal 9.0-12.0 [facility] Comment on above: Result Comment: . Performed By: #### C OVAG #### [facility] [address] [place] [address] Protime-INRon 10-21-2021 INR Coag (Bld) [Relative time] 1.1 {INR} [facility] Comment on above: Recommended Anticoag ulant [...] [Time] 11.5 s 9.0 - 12.0 s [facility] Comment on above: . Test Performed by [facility], [address] LAB [facility] Retic Count(%)on 10-21-2021 Retic Count(%) 1.6 Normal [facility] Comment on above: Result Comment: [place] < 5% Adults 0.5 - 1.5% Performed By: #### P T #### [facility] [address] [place] [address] Reticulocyteson 10-21-[address] Pct 1.6 [facility] Comment on above: [place] < 5% Adults 0.5 - 1.5% Test Performed by [facility], [address] LAB [facility] Sed Rateon 10-21-2021 Sed Rate 63 mm/h High 0-10 [facility] Comment on above: Performed By: #### P T #### [facility] [address] [place] [address] Sedimentation Rateon 022 Interpretation and review of laboratory results Abnormal [facility] Sed Rate 63 mm/h High 0 - 10 mm/h [facility] Test Performed by [facility], [address], [place], [place] [address] [facility] VL CARMELLA Upr/L Extremity Art 1 -2 Levelson 10-21-2021 VL CARMELLA Upr/L Extremity Art 1-2 Levels Patient Name: ANDREW SIFUENTES Ultrasound ACCESSION EXAM DATE/TIME PROCEDURE ORDERING PROVIDER [id number] 10/21/2021 16:12 EDT VL Upr/L Extremity Art 633370 -SHRUTHI MALIK 1-2 Levels CPT code 77149 Reason For Exam (VL Upr/L Extremity Art 1-2 Levels) both lower legs CARMELLA for both feet wounds. Report [facility] Ankle Brachial Index Report Patient Gurpreet : 1950 Study 10/21/2021 Name: Andrew Gonzalez (71yrs) Date: Age: 71 Account: [id number] Gender: M Loc: 444W BP: Ordering Physician: Shruthi Malik Circuit Court Judge: Rody Cross RDMS, RVT Interpreting Physician: Carina Call Location: [facility] Indications: Foot wounds. Originally ordered as a full PVR. Ordering PAYROLL SPECIALIST had to modify the order to ABIs [...] supine position. Images were obtained using a [employer] vascular ultrasound machine. Arterial pressure indices: + [...] CARINA HENNESSY Cardiovascular ACCESSION EXAM DATE/TIME PROCEDURE [id number] 10/21/2021 16:12 EDT VL Upr/L Extremity Art 1-2 Levels CPT code 69353 Reason For Exam (VL Upr/L Extremity Art 1-2 Levels) both lower legs CARMELLA for both feet wounds. Report [facility] Ankle Brachial Index Report Patient DO GurpreetB: 1950 Study 10/21/2021 Name: Andrew Gonzalez (71yrs) Date: Age: 71 Account: [id number] Cardiovascular Report Gender: M Loc: 444W BP: Ordering Physician: Shruthi Malik Circuit Court Judge: Rody Cross RDMS, RVT Interpreting Physician: [place] Call Location: [facility] Indications: Foot wounds. Originally ordered as a full PVR. Ordering PAYROLL SPECIALIST had to modify the order to ABIs [...] in th (more content not included)... Normal [facility] VL LOWER EXTREMITY BILATERAL VENOUS DUPLEXon 10-21-2021 [facility] Lower Extremity Venous Duplex Report Patient DO GurpreetB: 1950 Study 10/21/2021 Name: Andrew Gonzalez (71yrs) Date: Age: 71 Account: [id number] Gender: M Loc: 444 BP: Ordering Physician: May Cash Circuit Court Judge: Rody Cross RDMS, RVT Interpreting Physician: Carina Call Location: [facility] Indications: Bilateral lower leg edema. [...] supine position. Images were obtained using a [employer] vascular ultrasound machine. Venous flow and imaging: [...] + (more content not included)... [facility] Carina Call MD - 10/21/2021 [facility] Lower Extremity Venous Duplex Report Patient DO GurpreetB: 1950 Study 10/21/2021 Name: Andrew Gonzalez (71yrs) Date: Age: 71 Account: [id number] Gender: M Loc: 444 BP: Ordering Physician: May Cash Circuit Court Judge: Rody Cross RDMS, RVT Interpreting Physician: Carina Call Location: [facility] Indications: Bilateral lower leg edema. [...] supine position. Images were obtained using a [employer] vascular ultrasound machine. Venous flow and imaging: [...] + + +----- (more content not included)... [facility] Work Phone: VL LOWER EXTREMITY BILATERAL VENOUS DUPLEXOrdered By: Carina Call on 10-21-2021 [employer] Work Phone: VL Venous Duplex US Lower Ex t Bilateralon 10-21-2021 VL Venous Duplex US Lower Ext Bilateral Patient Name: ANDREW SIFUENTES Ultrasound ACCESSION EXAM DATE/TIME PROCEDURE ORDERING PROVIDER [id number] 10/21/2021 09:53 EDT VL Venous Duplex [place] [id number] -MAY CASH Lower Ext Bilateral CPT code 70092 Reason For Exam (VL Venous Duplex US Lower Ext Bilateral) bilateral sqwelling redness Report [facility] Lower Extremity Venous Duplex Report Patient DO GurpreetB: 1950 Study 10/21/2021 Name: Andrew Gonzalez (71yrs) Date: Age: 71 Account: [id number] Gender: M Loc: 444 BP: Ordering Physician: May Cash Circuit Court Judge: Rody Cross RDMS, RVT Interpreting Physician: Carina Call Location: [facility] Indications: Bilateral lower leg edema. [...] supine position. Images were obtained using a [employer] vascular ultrasound machine. Venous flow and imaging: [...] + + (more content not included)... [facility] CALCANEUS LEFT (MIN 2 VIE WS)on 10-21-2021 Patient Name: ANDREW SIFUENTES Diagnostic Radiology ACCESSION EXAM DATE/TIME PROCEDURE ORDERING PROVIDER [id number] 10/21/2021 15:30 EDT CR Calcaneus 2+ Views [id number] -SHRUTHI MALIK Left CPT code 42366 Reason For Exam (CR Calcaneus 2+ Views [...] J Transcribed Date and Time: 10/21/2021 4:33 JENNYYvette KALA RAD Carla Wong MD - 10/21/2021 [facility]: [id number] Radiology ACCESSION EXAM DATE/TIME PROCEDURE ORDERING PROVIDER [id number] 10/21/2021 15:30 EDT CR Calcaneus 2+ Views [id number] -SHRUTHI MALIK Left CPT code 66343 Reason For Exam (CR Calcaneus 2+ Views [...] Machuca Transcribed Date and Time: 10/21/2021 4:33 [facility] Work Phone: XR CALCANEUS LEFT (MIN 2 VIE WS)Ordered By: Carla Wong on 10-21-2021 [facility] Work Phone: XR Chest 1 VWon 10-21-2021 Patient Name: ANDREW SIFUENTES Diagnostic Radiology ACCESSION EXAM DATE/TIME PROCEDURE ORDERING PROVIDER [id number] 10/21/2021 08:16 EDT CR Chest 1 View Frontal [id number] FOSTER CPT code 32870 Reason For Exam (CR Chest 1 View [...] OSAMA Transcribed Date and Time: 10/21/2021 8:33 [facility] Venus Loyd MD - 10/21/2021 Patient Name: ANDREW SIFUENTES Diagnostic Radiology ACCESSION EXAM DATE/TIME PROCEDURE ORDERING PROVIDER [id number] 10/21/2021 08:16 EDT CR Chest 1 View Frontal [id number] CONTI CPT code 49566 Reason For Exam (CR Chest 1 View [...] RAMOS Transcribed Date and Time: 10/21/2021 8:33 [facility] Work Phone: XR Chest 1 VWOrdered By: Natalie Loyd on 10-21-2021 [facility] Work Phone: Basophil percentageon 2021 Chloride [Moles/Vol] 108 mmol/L 98-107 [facility] Work Phone: [phone] Glucose [Mass/Vol] 93 mg/dL 74-106 [facility] Work Phone: Potassium [Moles/Vol] 3.9 mmol/L 3.5-5.1 [facility] Work Phone: [phone] Sodium [Moles/Vol] 140 mmol/L 136-145 [facility] Work Phone: WBC (Bld) [#/Vol] 8.7 10*3/uL 4.4-11.0 [facility] Work Phone: Blood erythrocytes count (nu mber/volume)on 10-20-2021 RBC (Bld) [#/Vol] 3.63 10*6/uL 4.6-6.2 [facility] Work Phone: Blood hemoglobin measurement (mass/volume)on 10-20-2021 Hemoglobin (Bld) [Mass/Vol] 10.1 g/dL 13.0-16.5 [facility] Work Phone: Blood platelet mean volumeon 10-20-2021 Platelet mean volume (Bld) [Entitic vol] 9.8 fL 6.2-12.0 [facility] Work Phone: Determination of erythrocyte mean corpuscular volume (MCV)on 10-20-2021 MCV (RBC) [Entitic vol] 90.1 fL 80-94 [facility] Work Phone: Hematocrit Auto (Bld) [Volum e fraction]on 10-20-2021 Hematocrit (Bld) [Volume fraction] 32.7 % 40-54 [facility] Work Phone: Laboratory - Chemistry and C hemistry - challengeon 10-20-2021 CO2 [Moles/Vol] 25.0 mmol/L 21.0-32.0 [facility] Work Phone: Urea nitrogen/Creatinine [Mass ratio] 17.4 mg/mg 10-20 [facility] Work Phone: Laboratory - Hematology and Cell countson 10-20-2021 Erythrocyte distribution width (RBC) [Entitic vol] 52.1 fL 35.1-43.9 [facility] Work Phone: Erythrocyte distribution width (RBC) [Ratio] 15.6 % 11.6-14.6 [facility] Work Phone: MCH (RBC) [Entitic mass] 27.8 pg 27.0-32.0 [facility] Work Phone: MCHC Auto (RBC) [Mass/Vol]on 10-20-2021 MCHC (RBC) [Mass/Vol] 30.9 g/dL 32-36 [facility] Work Phone: No Panel Informationon 10-20 Estimated GFR (MDRD) Amer 133 mL/min >60 [facility] Work Phone: Comment on above: GFR Calc Estimated GFR (MDRD) Non-Af Amer 110 mL/min >60 [facility] Work Phone: Comment on above: Non- GFR Calc Platelets bldon 10-20-2021 Platelets (Bld) [#/Vol] 404 10*3/uL 150-450 [facility] Work Phone: Serum or plasma calcium oral urement (mass/volume)on 10-20-2021 Calcium [Mass/Vol] 9.1 mg/dL 8.5-10.1 [facility] Work Phone: Serum or plasma creatinine m easurement (mass/volume)on 10-20-2021 Creatinine [Mass/Vol] 0.75 mg/dL 0.70-1.30 [facility] Work Phone: Comment on above: The validity of the calculated GFR & GFRAA in patients over 70 years has not been determined. Clinical correlation is essential. Serum or plasma urea nitroge n measurement (mass/volume)on 10-20-2021 Urea nitrogen [Mass/Vol] 13 mg/dL 7-18 [facility] Work Phone: Thin prep Papanicolaou smear with manual screeningon 10-20-2021 Thin prep Papanicolaou smear with manual screening 7 5-15 [facility] Work Phone: CNPNon 10-17-2021 CNPN Normal [facility] Absolute lymphocyte counton 09-19-2021 Lymphocytes Auto (Unsp spec) [#/Vol] 1.74 10*3/uL 0.83-4.51 [facility] Work Phone: Basophil percentageon 2021 Basophils/100 WBC (Bld) 0.6 % 0-1 [facility] Work Phone: Bilirubin [Mass/Vol] 0.30 mg/dL 0.20-1.00 [facility] Work Phone: Comment on above: For patients on eltr ombopag therapy, use of [place] TBIL is not recommended. Chloride [Moles/Vol] 105 mmol/L 98-107 [facility] Work Phone: Eosinophils/100 WBC (Bld) 3.5 % 0-5 [facility] Work Phone: Glucose [Mass/Vol] 91 mg/dL 74-106 [facility] Work Phone: Neutrophils (Bld) [#/Vol] 4.2 10*3/uL 2.0-7.7 [facility] Work Phone: Neutrophils/100 WBC (Bld) 62.6 % 47-70 [facility] Work Phone: [phone] Potassium [Moles/Vol] 3.8 mmol/L 3.5-5.1 [facility] Work Phone: [phone] Protein [Mass/Vol] 6.3 g/dL 6.4-8.2 [facility] Work Phone: Sodium [Moles/Vol] 139 mmol/L 136-145 [facility] Work Phone: WBC (Bld) [#/Vol] 6.6 10*3/uL 4.4-11.0 [facility] Work Phone: Blood erythrocytes count (nu mber/volume)on 09-19-2021 RBC (Bld) [#/Vol] 3.47 10*6/uL 4.6-6.2 [facility] Work Phone: Blood hemoglobin measurement (mass/volume)on 09-19-2021 Hemoglobin (Bld) [Mass/Vol] 10.2 g/dL 13.0-16.5 [facility] Work Phone: Blood lymphocytes/100 leukoc yteson 09-19-2021 Lymphocytes/100 WBC (Bld) 26.2 % 19-41 [facility] Work Phone: Blood monocytes/100 leukocyt eson 09-19-2021 Monocytes/100 WBC (Bld) 6.5 % 0-10 [facility] Work Phone: Blood platelet mean volumeon 09-19-2021 Platelet mean volume (Bld) [Entitic vol] 9.6 fL 6.2-12.0 [facility] Work Phone: Determination of erythrocyte mean corpuscular volume (MCV)on 09-19-2021 MCV (RBC) [Entitic vol] 94.8 fL 80-94 [facility] Work Phone: Hematocrit Auto (Bld) [Volum e fraction]on 09-19-2021 Hematocrit (Bld) [Volume fraction] 32.9 % 40-54 [facility] Work Phone: Laboratory - Chemistry and C hemistry - challengeon 09-19-2021 ALP [Catalytic activity/Vol] 109 U/L 45-117 [facility] Work Phone: ALT [Catalytic activity/Vol] 23 U/L 16-61 [facility] Work Phone: CO2 [Moles/Vol] 26.0 mmol/L 21.0-32.0 [facility] Work Phone: Globulin (S) [Mass/Vol] 3.5 g/dL 2.2-4.2 [facility] Work Phone: Urea nitrogen/Creatinine [Mass ratio] 15.3 mg/mg 10-20 [facility] Work Phone: Laboratory - Hematology and Cell countson 09-19-2021 Erythrocyte distribution width (RBC) [Entitic vol] 59.4 fL 35.1-43.9 [facility] Work Phone: Erythrocyte distribution width (RBC) [Ratio] 17.1 % 11.6-14.6 [facility] Work Phone: Immature granulocytes/100 WBC (Bld) 0.600 % 0.0-0.9 [facility] Work Phone: Comment on above: IG% - Immature Granu locytes (promyelocytes, myelocytes and metamyelocytes) > 1% indicates that a LEFT SHIFT is Present. MCH (RBC) [Entitic mass] 29.4 pg 27.0-32.0 [facility] Work Phone: Nucleated RBC/100 WBC (Bld) [Ratio] 0 % 0-5 [facility] Work Phone: MCHC Auto (RBC) [Mass/Vol]on 09-19-2021 MCHC (RBC) [Mass/Vol] 31.0 g/dL 32-36 [facility] Work Phone: No Panel Informationon 09-19 Estimated GFR (MDRD) Amer 175 mL/min >60 [facility] Work Phone: Comment on above: GFR Calc Estimated GFR (MDRD) Non-Af Amer 145 mL/min >60 [facility] Work Phone: Comment on above: Non- GFR Calc Platelets bldon 09-19-2021 Platelets (Bld) [#/Vol] 342 10*3/uL 150-450 [facility] Work Phone: Serum or plasma albumin oral urement (mass/volume)on 09-19-2021 Albumin [Mass/Vol] 2.8 g/dL 3.2-5.0 [facility] Work Phone: Serum or plasma albumin/glob ulin mass ratioon 09-19-2021 Albumin/Globulin [Mass ratio] 0.8 {ratio} 0.9-2.4 [facility] Work Phone: Serum or plasma calcium oral urement (mass/volume)on 09-19-2021 Calcium [Mass/Vol] 9.0 mg/dL 8.5-10.1 [facility] Work Phone: Serum or plasma creatinine m easurement (mass/volume)on 09-19-2021 Creatinine [Mass/Vol] 0.59 mg/dL 0.70-1.30 [facility] Work Phone: Comment on above: The validity of the calculated GFR & GFRAA in patients over 70 years has not been determined. Clinical correlation is essential. Serum or plasma urea nitroge n measurement (mass/volume)on 09-19-2021 Urea nitrogen [Mass/Vol] 9 mg/dL 7-18 [facility] Work Phone: Thin prep Papanicolaou smear with manual screeningon 09-19-2021 Thin prep Papanicolaou smear with manual screening 12 U/L 15-37 [facility] Work Phone: Thin prep Papanicolaou smear with manual screening 8 5-15 [facility] Work Phone: OPERATIVE NOon 08-22-2021 OPERATIVE NO Normal [facility] Basic metabolic 2000 panelon 08-19-2021 Anion gap [Moles/Vol] 10 mmol/L Normal 9-18 [facility] Comment on above: Order Comment: Speci men Type: BLOOD SPECIMENOrdering Facility: [facility] Address: [address] [place] [address] Performed By: #### 2 4321-2 ####[facility] LABORATORYCLIA [id number] [place] [address] [place] Calcium [Mass/Vol] 8.6 mg/dL Normal 8.5-10.2 [facility] Comment on above: Order Comment: Speci men Type: BLOOD SPECIMENOrdering Facility: [facility] Address: [address] [place] [address] Performed By: #### 2 4321-2 ####[facility] LABORATORYCLIA [id number] [place] [address] [place] Chloride [Moles/Vol] 99 mmol/L Normal 97-105 [facility] Comment on above: Order Comment: Speci men Type: BLOOD SPECIMENOrdering Facility: [facility] Address: [address] [place] [address] Performed By: #### 2 4321-2 ####[facility]ORATORYCLIA [id number] [place] [address] [place] CO2 [Moles/Vol] 29 mmol/L Normal 22-30 [facility] Comment on above: Order Comment: Speci men Type: BLOOD SPECIMENOrdering Facility: [facility] Address: [address] [place] [address] Performed By: #### 2 4321-2 ####[facility]ORATORYCLIA [id number] [place] [address] [place] Creatinine [Mass/Vol] 0.58 mg/dL Low 0.73-1.22 [facility] Comment on above: Order Comment: Speci men Type: BLOOD SPECIMENOrdering Facility: [facility] Address: [address] [place] [address] Performed By: #### 2 4321-2 ####[facility]ORATORYCLIA [id number] [place] [address] [place] ESTIMATED GLOMERULAR FILTRATION RATE 106 mL/min/1.73m??? Normal >=60 [facility] Comment on above: Order Comment: Shira feldman Type: BLOOD SPECIMENOrdering Facility: [facility] Address: [address] [place] [address] Result Comment: Luzmaria mated Glomerular Filtration Rate [...] Performed By: #### 2 4321-2 ####[facility] [id number] [place] [address] [place] Glucose [Mass/Vol] 101 mg/dL High 74-99 [facility] Comment on above: Order Comment: Shira feldman Type: BLOOD SPECIMENOrdering Facility: [facility] Address: [address] [place] [address] Result Comment: The [place] [employer] (ADA) provides guidance for cutoff [...] Standards of Medical Care in Diabetes 2016, [place] [employer]. Diabetes Care. 2016.39(Suppl 1). Performed By: #### 2 4321-2 ####[facility] LABORATORYCLIA [id number] [place] [id number] [place] Potassium [Moles/Vol] 3.5 mmol/L Low 3.7-5.1 [facility] Comment on above: Order Comment: Speci men Type: BLOOD SPECIMENOrdering Facility: [facility] Address: [address] [place] [address] Performed By: #### 2 4321-2 ####[facility] LABORATORYCLIA [id number] [address] STATES OF [facility] Sodium [Moles/Vol] 138 mmol/L Normal 136-144 [facility] Comment on above: Order Comment: Speci men Type: BLOOD SPECIMENOrdering Facility: [facility] Address: [address] [place] [address] Performed By: #### 2 4321-2 ####[facility] LABORATORYCLIA [id number] [address] STATES OF [facility] Urea nitrogen [Mass/Vol] 11 mg/dL Normal 9-24 [facility] Comment on above: Order Comment: Speci men Type: BLOOD SPECIMENOrdering Facility: [facility] Address: [address] [place] [address] Performed By: #### 2 4321-2 ####[facility] LABORATORYCLIA [id number] [address] STATES OF [facility] CASE MANAGEMon 08-19-2021 CASE MANAGEM Normal [facility] CBC W Auto Differential pane l (Bld)on 08-19-2021 Basophils (Bld) [#/Vol] 0.03 10*3/uL Normal <0.11 [facility] Comment on above: Order Comment: Speci men Type: BLOOD SPECIMENOrdering Facility: [facility] Address: [address] [place] [address] Performed By: #### 5 7021-8 ####[facility] LABORATORYCLIA [id number] [address] STATES [facility] Basophils/100 WBC (Bld) 0.4 % Normal [facility] Comment on above: Order Comment: Speci men Type: BLOOD SPECIMENOrdering Facility: [facility] Address: [address] [place] [address] Performed By: #### 5 7021-8 ####[facility]ORATORYCLIA [id number] [address] Differential cell count method Nom (Bld) Auto Normal [facility] Comment on above: Order Comment: Speci men Type: BLOOD SPECIMENOrdering Facility: [facility] Address: [address] [place] [address] Performed By: #### 5 7021-8 ####[facility]ORATORYCLIA [id number] [address] Eosinophils (Bld) [#/Vol] 0.24 10*3/uL Normal <0.46 [facility] Comment on above: Order Comment: Speci men Type: BLOOD SPECIMENOrdering Facility: [facility] Address: [address] [place] [address] Performed By: #### 5 7021-8 ####[facility] LABORATORYCLIA [id number] [address] Eosinophils/100 WBC (Bld) 3.1 % Normal [facility] Comment on above: Order Comment: Speci men Type: BLOOD SPECIMENOrdering Facility: [facility] Address: [address] [place] [address] Performed By: #### 5 7021-8 ####[facility] LABORATORYCLIA [id number] [address] Erythrocyte distribution width (RBC) [Ratio] 17.5 % High 11.5-15.0 [facility] Comment on above: Order Comment: Speci men Type: BLOOD SPECIMENOrdering Facility: [facility] Address: [address] [place] [address] Performed By: #### 5 7021-8 ####[facility] LABORATORYCLIA [id number] [address] Hematocrit (Bld) [Volume fraction] 30.2 % Low 39.0-51.0 [facility] Comment on above: Order Comment: Speci men Type: BLOOD SPECIMENOrdering Facility: [facility] Address: [address] [place] [address] Performed By: #### 5 7021-8 ####[facility]ORATORYCLIA [id number] [address] Hemoglobin (Bld) [Mass/Vol] 9.6 g/dL Low 13.0-17.0 [facility] Comment on above: Order Comment: Speci men Type: BLOOD SPECIMENOrdering Facility: [facility] Address: [address] [place] [address] Performed By: #### 5 7021-8 ####[facility] LABORATORYCLIA [id number] [address] IMMATURE GRAN % 0.4 % Normal [facility] Comment on above: Order Comment: Speci men Type: BLOOD SPECIMENOrdering Facility: [facility] Address: [address] [place] [address] Performed By: #### 5 7021-8 ####[facility] LABORATORYCLIA [id number] [address] IMMATURE GRAN ABS 0.03 k/uL Normal <0.10 [facility] Comment on above: Order Comment: Speci men Type: BLOOD SPECIMENOrdering Facility: [facility] Address: [address] [place] [address] Performed By: #### 5 7021-8 ####[facility] LABORATORYCLIA [id number] [address] [place] Lymphocytes (Bld) [#/Vol] 1.71 10*3/uL Normal 1.00-4.00 [facility] Comment on above: Order Comment: Speci men Type: BLOOD SPECIMENOrdering Facility: [facility] Address: [address] [place] [address] Performed By: #### 5 7021-8 ####[facility]ORATORYCLIA [id number] [address] Lymphocytes/100 WBC (Bld) 22.2 % Normal [facility] Comment on above: Order Comment: Speci men Type: BLOOD SPECIMENOrdering Facility: [facility] Address: [address] [place] [address] Performed By: #### 5 7021-8 ####[facility] LABORATORYCLIA [id number] [address] MCH (RBC) [Entitic mass] 29.4 pg Normal 26.0-34.0 [facility] Comment on above: Order Comment: Speci men Type: BLOOD SPECIMENOrdering Facility: [facility] Address: [address] [place] [address] Performed By: #### 5 7021-8 ####[facility] LABORATORYCLIA [id number] [address] STATES [facility] MCHC (RBC) [Mass/Vol] 31.8 g/dL Normal 30.5-36.0 [facility] Comment on above: Order Comment: Speci men Type: BLOOD SPECIMENOrdering Facility: [facility] Address: [address] [place] [address] Performed By: #### 5 7021-8 ####[facility] LABORATORYCLIA [id number] [address] MCV (RBC) [Entitic vol] 92.6 fL Normal 80.0-100.0 [facility] Comment on above: Order Comment: Speci men Type: BLOOD SPECIMENOrdering Facility: [facility] Address: [address] [place] [address] Performed By: #### 5 7021-8 ####[facility] LABORATORYCLIA [id number] [address] Monocytes (Bld) [#/Vol] 0.50 10*3/uL Normal <0.87 [facility] Comment on above: Order Comment: Speci men Type: BLOOD SPECIMENOrdering Facility: [facility] Address: [address] [place] [address] Performed By: #### 5 7021-8 ####[facility] LABORATORYCLIA [id number] [place] [address] [place] Monocytes/100 WBC (Bld) 6.5 % Normal [facility] Comment on above: Order Comment: Speci men Type: BLOOD SPECIMENOrdering Facility: [facility] Address: [address] [place] [address] Performed By: #### 5 7021-8 ####[facility]ORATORYCLIA [id number] [place] [address] [place] Neutrophils (Bld) [#/Vol] 5.20 10*3/uL Normal 1.45-7.50 [facility] Comment on above: Order Comment: Speci men Type: BLOOD SPECIMENOrdering Facility: [facility] Address: [address] [place] [address] Performed By: #### 5 7021-8 ####[facility] LABORATORYCLIA [id number] [address] [place] Neutrophils/100 WBC (Bld) 67.4 % Normal [facility] Comment on above: Order Comment: Speci men Type: BLOOD SPECIMENOrdering Facility: [facility] Address: [address] [place] [address] Performed By: #### 5 7021-8 ####[facility]ORATORYCLIA [id number] [place] [address] [place] Nucleated RBC (Bld) [#/Vol] 10*3/uL Normal <0.01 [facility] Comment on above: Order Comment: Speci men Type: BLOOD SPECIMENOrdering Facility: [facility] Address: [address] [place] [address] Performed By: #### 5 7021-8 ####[facility] LABORATORYCLIA [id number] [place] [address] [place] Nucleated RBC/100 WBC (Bld) [Ratio] 0.0 /100 WBC Normal [facility] Comment on above: Order Comment: Speci men Type: BLOOD SPECIMENOrdering Facility: [facility] Address: [address] [place] [address] Performed By: #### 5 7021-8 ####[facility] LABORATORYCLIA [id number] [address] Platelet mean volume (Bld) [Entitic vol] 8.9 fL Low 9.0-12.7 [facility] Comment on above: Order Comment: Speci men Type: BLOOD SPECIMENOrdering Facility: [facility] [facility] Address: [address] [place] [address] Performed By: #### 5 7021-8 ####[facility]ORATORYCLIA [id number] [address] [place] Platelets (Bld) [#/Vol] 408 10*3/uL High 150-400 [facility] Comment on above: Order Comment: Speci men Type: BLOOD SPECIMENOrdering Facility: [facility] Address: [address] [place] [address] Performed By: #### 5 7021-8 ####[facility]ORATORYCLIA [id number] [address] [place] RBC (Bld) [#/Vol] 3.26 10*6/uL Low 4.20-6.00 [facility] Comment on above: Order Comment: Speci men Type: BLOOD SPECIMENOrdering Facility: [facility] Address: [address] [place] [address] Performed By: #### 5 7021-8 ####[facility]ORATORYCLIA [id number] [address] [place] WBC (Bld) [#/Vol] 7.71 10*3/uL Normal 3.70-11.00 [facility] Comment on above: Order Comment: Speci men Type: BLOOD SPECIMENOrdering Facility: [facility] Address: [address] [place] [address] Performed By: #### 5 7021-8 ####[facility] LABORATORYCLIA [id number] [address] [place] CNDSon 08-19-2021 CNDS Normal [facility] CONSULT PROGon 08-19-2021 CONSULT PROG Normal [facility] THERAPY NTon 08-19-2021 THERAPY NT Normal [facility] Basic metabolic 2000 panelon 08-18-2021 Anion gap [Moles/Vol] 11 mmol/L Normal 9-18 [facility] Comment on above: Order Comment: Speci men Type: BLOOD SPECIMENOrdering Facility: [facility] Address: [address] [place] [address] Performed By: #### 2 4321-2 ####[facility] LABORATORYCLIA [id number] [place] [address] [place] Calcium [Mass/Vol] 8.6 mg/dL Normal 8.5-10.2 [facility] Comment on above: Order Comment: Speci men Type: BLOOD SPECIMENOrdering Facility: [facility] Address: [address] [place] [address] Performed By: #### 2 4321-2 ####[facility] LABORATORYCLIA [id number] [place] [address] [place] Chloride [Moles/Vol] 98 mmol/L Normal 97-105 [facility] Comment on above: Order Comment: Speci men Type: BLOOD SPECIMENOrdering Facility: [facility] Address: [address] [place] [address] Performed By: #### 2 4321-2 ####[facility]ORATORYCLIA [id number] [place] [address] [place] CO2 [Moles/Vol] 28 mmol/L Normal 22-30 [facility] Comment on above: Order Comment: Speci men Type: BLOOD SPECIMENOrdering Facility: [facility] Address: [address] [place] [address] Performed By: #### 2 4321-2 ####[facility]ORATORYCLIA [id number] [place] [address] [place] Creatinine [Mass/Vol] 0.56 mg/dL Low 0.73-1.22 [facility] Comment on above: Order Comment: Speci men Type: BLOOD SPECIMENOrdering Facility: [facility] Address: [address] [place] [address] Performed By: #### 2 4321-2 ####[facility] [id number] [address] ESTIMATED GLOMERULAR FILTRATION RATE 107 mL/min/1.73m??? Normal >=60 [facility] Comment on above: Order Comment: Shira francia Type: BLOOD SPECIMENOrdering Facility: [facility] Address: [address] [place] [address] Result Comment: Luzmaria mated Glomerular Filtration Rate [...] Performed By: #### 2 4321-2 ####[facility] [id number] [place] [address] [place] Glucose [Mass/Vol] 113 mg/dL High 74-99 [facility] Comment on above: Order Comment: Johncara feldman Type: BLOOD SPECIMENOrdering Facility: [facility] Address: [address] [place] [address] Result Comment: The [place] [employer] (ADA) provides guidance for cutoff [...] Standards of Medical Care in Diabetes 2016, [place] [employer]. Diabetes Care. 2016.39(Suppl 1). Performed By: #### 2 4321-2 ####[facility]ORATORYCLIA [id number] [place] [address] [place] Potassium [Moles/Vol] 3.5 mmol/L Low 3.7-5.1 [facility] Comment on above: Order Comment: Speci men Type: BLOOD SPECIMENOrdering Facility: [facility] Address: [address] [place] [address] Performed By: #### 2 4321-2 ####[facility]ORATORYCLIA [id number] [address] [place] Sodium [Moles/Vol] 137 mmol/L Normal 136-144 [facility] Comment on above: Order Comment: Speci men Type: BLOOD SPECIMENOrdering Facility: [facility] Address: [address] [place] [address] Performed By: #### 2 4321-2 ####[facility]ORATORYCLIA [id number] [address] STATES [facility] Urea nitrogen [Mass/Vol] 10 mg/dL Normal 9-24 [facility] Comment on above: Order Comment: Speci men Type: BLOOD SPECIMENOrdering Facility: [facility] Address: [address] [place] [address] Performed By: #### 2 4321-2 ####[facility]ATORYCLIA [id number] [address] [place] CBC W Auto Differential pane l (Bld)on 08-18-2021 Basophils (Bld) [#/Vol] 10*3/uL Normal <0.11 [facility] Comment on above: Order Comment: Speci men Type: BLOOD SPECIMENOrdering Facility: [facility] Address: [address] [place] [address] Performed By: #### 5 7021-8 ####[facility]ORATORYCLIA [id number] [address] [place] Basophils/100 WBC (Bld) 0.3 % Normal [facility] Comment on above: Order Comment: Speci men Type: BLOOD SPECIMENOrdering Facility: [facility] Address: [address] [address] Performed By: #### 5 7021-8 ####[facility]ORATORYCLIA [id number] [address] Differential cell count method Nom (Bld) Auto Normal [facility] Comment on above: Order Comment: Speci men Type: BLOOD SPECIMENOrdering Facility: [facility] Address: [address] [place] [address] Performed By: #### 5 7021-8 ####[facility]ORATORYCLIA [id number] [address] [place] Eosinophils (Bld) [#/Vol] 0.37 10*3/uL Normal <0.46 [facility] Comment on above: Order Comment: Speci men Type: BLOOD SPECIMENOrdering Facility: [facility] Address: [address] [place] [address] Performed By: #### 5 7021-8 ####[facility]ORATORYCLIA [id number] [address] Eosinophils/100 WBC (Bld) 4.8 % Normal [facility] Comment on above: Order Comment: Speci men Type: BLOOD SPECIMENOrdering Facility: [facility] Address: [address] [place] [address] Performed By: #### 5 7021-8 ####[facility]ORATORYCLIA [id number] [address] Erythrocyte distribution width (RBC) [Ratio] 17.5 % High 11.5-15.0 [facility] Comment on above: Order Comment: Speci men Type: BLOOD SPECIMENOrdering Facility: [facility] Address: [address] [place] [address] Performed By: #### 5 7021-8 ####[facility]ORATORYCLIA [id number] [address] [place] Hematocrit (Bld) [Volume fraction] 30.2 % Low 39.0-51.0 [facility] Comment on above: Order Comment: Speci men Type: BLOOD SPECIMENOrdering Facility: [facility] Address: [address] [place] [address] Performed By: #### 5 7021-8 ####[facility] LABORATORYCLIA [id number] [address] OF [facility] Hemoglobin (Bld) [Mass/Vol] 9.5 g/dL Low 13.0-17.0 [facility] Comment on above: Order Comment: Speci men Type: BLOOD SPECIMENOrdering Facility: [facility] Address: [address] [place] [address] Performed By: #### 5 7021-8 ####[facility]ORATORYCLIA [id number] [address] IMMATURE GRAN % 0.4 % Normal [facility] Comment on above: Order Comment: Speci men Type: BLOOD SPECIMENOrdering Facility: [facility] Address: [address] [place] [address] Performed By: #### 5 7021-8 ####[facility]ORATORYCLIA [id number] [address] IMMATURE GRAN ABS 0.03 k/uL Normal <0.10 [facility] Comment on above: Order Comment: Speci men Type: BLOOD SPECIMENOrdering Facility: [facility] Address: [address] [place] [address] Performed By: #### 5 7021-8 ####[facility]ORATORYCLIA [id number] [address] [place] Lymphocytes (Bld) [#/Vol] 1.85 10*3/uL Normal 1.00-4.00 [facility] Comment on above: Order Comment: Speci men Type: BLOOD SPECIMENOrdering Facility: [facility] Address: [address] [place] [address] Performed By: #### 5 7021-8 ####[facility]ORATORYCLIA [id number] [address] Lymphocytes/100 WBC (Bld) 23.8 % Normal [facility] Comment on above: Order Comment: Speci men Type: BLOOD SPECIMENOrdering Facility: [facility] Address: [address] [place] [address] Performed By: #### 5 7021-8 ####[facility]ORATORYCLIA [id number] [address] MCH (RBC) [Entitic mass] 29.5 pg Normal 26.0-34.0 [facility] Comment on above: Order Comment: Speci men Type: BLOOD SPECIMENOrdering Facility: [facility] Address: [address] [place] [address] Performed By: #### 5 7021-8 ####[facility]ORATORYCLIA [id number] [address] MCHC (RBC) [Mass/Vol] 31.5 g/dL Normal 30.5-36.0 [facility] Comment on above: Order Comment: Speci men Type: BLOOD SPECIMENOrdering Facility: [facility] Address: [address] [place] [address] Performed By: #### 5 7021-8 ####[facility]ORATORYCLIA [id number] [address] MCV (RBC) [Entitic vol] 93.8 fL Normal 80.0-100.0 [facility] Comment on above: Order Comment: Speci men Type: BLOOD SPECIMENOrdering Facility: [facility] Address: [address] [place] [address] Performed By: #### 5 7021-8 ####[facility]ORATORYCLIA [id number] [address] Monocytes (Bld) [#/Vol] 0.49 10*3/uL Normal <0.87 [facility] Comment on above: Order Comment: Speci men Type: BLOOD SPECIMENOrdering Facility: [facility] Address: [address] [place] [address] Performed By: #### 5 7021-8 ####[facility]ORATORYCLIA [id number] [address] [place] Monocytes/100 WBC (Bld) 6.3 % Normal [facility] Comment on above: Order Comment: Speci men Type: BLOOD SPECIMENOrdering Facility: [facility] Address: [address] [place] [address] Performed By: #### 5 7021-8 ####[facility]ORATORYCLIA [id number] [place] [address] [place] Neutrophils (Bld) [#/Vol] 5.00 10*3/uL Normal 1.45-7.50 [facility] Comment on above: Order Comment: Speci men Type: BLOOD SPECIMENOrdering Facility: [facility] Address: [address] [place] [address] Performed By: #### 5 7021-8 ####[facility]ORATORYCLIA [id number] [address] Neutrophils/100 WBC (Bld) 64.4 % Normal [facility] Comment on above: Order Comment: Speci men Type: BLOOD SPECIMENOrdering Facility: [facility] Address: [address] [place] [address] Performed By: #### 5 7021-8 ####[facility]ORATORYCLIA [id number] [address] [place] Nucleated RBC (Bld) [#/Vol] 10*3/uL Normal <0.01 [facility] Comment on above: Order Comment: Speci men Type: BLOOD SPECIMENOrdering Facility: [facility] Address: [address] [place] [address] Performed By: #### 5 7021-8 ####[facility]ORATORYCLIA [id number] [address] [place] Nucleated RBC/100 WBC (Bld) [Ratio] 0.0 /100 WBC Normal [facility] Comment on above: Order Comment: Speci men Type: BLOOD SPECIMENOrdering Facility: [facility] Address: [address] [place], [place] [address] Performed By: #### 5 7021-8 ####[facility]ORATORYCLIA [id number] [address] Platelet mean volume (Bld) [Entitic vol] 9.1 fL Normal 9.0-12.7 [facility] Comment on above: Order Comment: Speci men Type: BLOOD SPECIMENOrdering Facility: [facility] Address: [address] [place], [place] [address] Performed By: #### 5 7021-8 ####[facility]ORATORYCLIA [id number] [address] [place] Platelets (Bld) [#/Vol] 391 10*3/uL Normal 150-400 [facility] Comment on above: Order Comment: Speci men Type: BLOOD SPECIMENOrdering Facility: [facility] Address: [address] [place] [address] Performed By: #### 5 7021-8 ####[facility]ORATORYCLIA [id number] [place] [address] [place] RBC (Bld) [#/Vol] 3.22 10*6/uL Low 4.20-6.00 [facility] Comment on above: Order Comment: Speci men Type: BLOOD SPECIMENOrdering Facility: [facility] Address: [address] [place], [place] [address] Performed By: #### 5 7021-8 ####[facility] LABORATORYCLIA [id number] [address] [place] WBC (Bld) [#/Vol] 7.76 10*3/uL Normal 3.70-11.00 [facility] Comment on above: Order Comment: Speci men Type: BLOOD SPECIMENOrdering Facility: [facility] Address: [address] [place] [address] Performed By: #### 5 7021-8 ####[facility]ORATORYCLIA [id number] [address] [place] CONSULT PROGon 08-18-2021 CONSULT PROG Normal [facility] CASE MANAGEMon 08-17-2021 CASE MANAGEM Normal [facility] CBC W Auto Differential pane l (Bld)on 08-17-2021 Basophils (Bld) [#/Vol] 0.04 10*3/uL Normal <0.11 [facility] Comment on above: Order Comment: Speci men Type: BLOOD SPECIMENOrdering Facility: [facility] Address: [address] [place] [address] Performed By: #### 5 7021-8 ####[facility]ORATORYCLIA [id number] [address] [place] Basophils/100 WBC (Bld) 0.5 % Normal [facility] Comment on above: Order Comment: Speci men Type: BLOOD SPECIMENOrdering Facility: [facility] Address: [address] [place] [address] Performed By: #### 5 7021-8 ####[facility]ORATORYCLIA [id number] [address] [place] Differential cell count method Nom (Bld) Auto Normal [facility] Comment on above: Order Comment: Speci men Type: BLOOD SPECIMENOrdering Facility: [facility] Address: [address] [place] [address] Performed By: #### 5 7021-8 ####[facility] LABORATORYCLIA [id number] [place] [address] [place] Eosinophils (Bld) [#/Vol] 0.31 10*3/uL Normal <0.46 [facility] Comment on above: Order Comment: Speci men Type: BLOOD SPECIMENOrdering Facility: [facility] Address: [address] [place] [address] Performed By: #### 5 7021-8 ####[facility]ORATORYCLIA [id number] [address] [place] Eosinophils/100 WBC (Bld) 3.7 % Normal [facility] Comment on above: Order Comment: Speci men Type: BLOOD SPECIMENOrdering Facility: [facility] Address: [address] [place] [address] Performed By: #### 5 7021-8 ####[facility]ORATORYCLIA [id number] [address] Erythrocyte distribution width (RBC) [Ratio] 17.4 % High 11.5-15.0 [facility] Comment on above: Order Comment: Speci men Type: BLOOD SPECIMENOrdering Facility: [facility] Address: [address] [place] [address] Performed By: #### 5 7021-8 ####[facility]ORATORYCLIA [id number] [address] Hematocrit (Bld) [Volume fraction] 30.6 % Low 39.0-51.0 [facility] Comment on above: Order Comment: Speci men Type: BLOOD SPECIMENOrdering Facility: [facility] Address: [address] [place] [address] Performed By: #### 5 7021-8 ####[facility]ORATORYCLIA [id number] [address] [place] Hemoglobin (Bld) [Mass/Vol] 9.6 g/dL Low 13.0-17.0 [facility] Comment on above: Order Comment: Speci men Type: BLOOD SPECIMENOrdering Facility: [facility] Address: [address] [place] [address] Performed By: #### 5 7021-8 ####[facility]ORATORYCLIA [id number] [address] [place] IMMATURE GRAN % 0.2 % Normal [facility] Comment on above: Order Comment: Speci men Type: BLOOD SPECIMENOrdering Facility: [facility] Address: [address] [place] [address] Performed By: #### 5 7021-8 ####[facility]ORATORYCLIA [id number] [address] IMMATURE GRAN ABS <0.03 Normal <0.10 [facility] Comment on above: Order Comment: Speci men Type: BLOOD SPECIMENOrdering Facility: [facility] Address: [address] [place] [address] Performed By: #### 5 7021-8 ####[facility]ORATORYCLIA [id number] [address] [place] Lymphocytes (Bld) [#/Vol] 1.66 10*3/uL Normal 1.00-4.00 [facility] Comment on above: Order Comment: Speci men Type: BLOOD SPECIMENOrdering Facility: [facility] Address: [address] [place] [address] Performed By: #### 5 7021-8 ####[facility]ORATORYCLIA [id number] [address] Lymphocytes/100 WBC (Bld) 19.9 % Normal [facility] Comment on above: Order Comment: Speci men Type: BLOOD SPECIMENOrdering Facility: [facility] Address: [address] [place] [address] Performed By: #### 5 7021-8 ####[facility]ORATORYCLIA [id number] [address] MCH (RBC) [Entitic mass] 28.9 pg Normal 26.0-34.0 [facility] Comment on above: Order Comment: Speci men Type: BLOOD SPECIMENOrdering Facility: [facility] Address: [address] [place] [address] Performed By: #### 5 7021-8 ####[facility]ORATORYCLIA [id number] [address] MCHC (RBC) [Mass/Vol] 31.4 g/dL Normal 30.5-36.0 [facility] Comment on above: Order Comment: Speci men Type: BLOOD SPECIMENOrdering Facility: [facility] Address: [address] [place] [address] Performed By: #### 5 7021-8 ####[facility]ORATORYCLIA [id number] [place] [address] [place] MCV (RBC) [Entitic vol] 92.2 fL Normal 80.0-100.0 [facility] Comment on above: Order Comment: Speci men Type: BLOOD SPECIMENOrdering Facility: [facility] Address: [address] [place] [address] Performed By: #### 5 7021-8 ####[facility]ORATORYCLIA [id number] [address] [place] Monocytes (Bld) [#/Vol] 0.52 10*3/uL Normal <0.87 [facility] Comment on above: Order Comment: Speci men Type: BLOOD SPECIMENOrdering Facility: [facility] Address: [address] [place] [address] Performed By: #### 5 7021-8 ####[facility]ORATORYCLIA [id number] [address] STATES [facility] Monocytes/100 WBC (Bld) 6.2 % Normal [facility] Comment on above: Order Comment: Speci men Type: BLOOD SPECIMENOrdering Facility: [facility] Address: [address] [place] [address] Performed By: #### 5 7021-8 ####[facility]ATORYCLIA [id number] [address] [place] Neutrophils (Bld) [#/Vol] 5.78 10*3/uL Normal 1.45-7.50 [facility] Comment on above: Order Comment: Speci men Type: BLOOD SPECIMENOrdering Facility: [facility] Address: [address] [place] [address] Performed By: #### 5 7021-8 ####[facility]ORATORYCLIA [id number] [address] [place] Neutrophils/100 WBC (Bld) 69.5 % Normal [facility] Comment on above: Order Comment: Speci men Type: BLOOD SPECIMENOrdering Facility: [facility] Address: [address] Performed By: #### 5 7021-8 ####[facility]ORATORYCLIA [id number] [address] Nucleated RBC (Bld) [#/Vol] 10*3/uL Normal <0.01 [facility] Comment on above: Order Comment: Speci men Type: BLOOD SPECIMENOrdering Facility: [facility] Address: [address] [place], [place] [address] Performed By: #### 5 7021-8 ####[facility]ORATORYCLIA [id number] [address] Nucleated RBC/100 WBC (Bld) [Ratio] 0.0 /100 WBC Normal [facility] Comment on above: Order Comment: Speci men Type: BLOOD SPECIMENOrdering Facility: [facility] Address: [address] [place] [address] Performed By: #### 5 7021-8 ####[facility]ORATORYCLIA [id number] [address] [place] [facility] Platelet mean volume (Bld) [Entitic vol] 9.2 fL Normal 9.0-12.7 [facility] Comment on above: Order Comment: Speci men Type: BLOOD SPECIMENOrdering Facility: [facility] Address: [address] [place] [address] Performed By: #### 5 7021-8 ####[facility]ORATORYCLIA [id number] [address] STATES [facility] Platelets (Bld) [#/Vol] 379 10*3/uL Normal 150-400 [facility] Comment on above: Order Comment: Speci men Type: BLOOD SPECIMENOrdering Facility: [facility] Address: [address] [place], [place] [id number] Performed By: #### 5 7021-8 ####[facility] LABORATORYCLIA [id number] [place] [address] [place] RBC (Bld) [#/Vol] 3.32 10*6/uL Low 4.20-6.00 [facility] Comment on above: Order Comment: Speci men Type: BLOOD SPECIMENOrdering Facility: [facility] Address: [address] [place] [address] Performed By: #### 5 7021-8 ####[facility] LABORATORYCLIA [id number] [place] [address] [place] WBC (Bld) [#/Vol] 8.33 10*3/uL Normal 3.70-11.00 [facility] Comment on above: Order Comment: Speci men Type: BLOOD SPECIMENOrdering Facility: [facility] Address: [address] [place] [address] Performed By: #### 5 7021-8 ####[facility] LABORATORYCLIA [id number] [address] OF [facility] CONSULT PROGon 08-17-2021 CONSULT PROG Normal [facility] NUTRITIONon 08-17-2021 NUTRITION Normal [facility] Basic metabolic 2000 panelon 08-16-2021 Anion gap [Moles/Vol] 14 mmol/L Normal 9-18 [facility] Comment on above: Order Comment: Speci men Type: BLOOD SPECIMENOrdering Facility: [facility] Address: [address] [place] [address] Performed By: #### 2 4321-2, 12866-0 ####[facility]ORATORYCLIA [id number] [address] [place] Calcium [Mass/Vol] 8.8 mg/dL Normal 8.5-10.2 [facility] Comment on above: Order Comment: Speci men Type: BLOOD SPECIMENOrdering Facility: [facility] Address: [address] [place] [address] Performed By: #### 2 4321-2, 86242-8 ####[facility] LABORATORYCLIA [id number] [address] [place] Chloride [Moles/Vol] 97 mmol/L Normal 97-105 [facility] Comment on above: Order Comment: Speci men Type: BLOOD SPECIMENOrdering Facility: [facility] Address: [address] [address] Performed By: #### 2 4322, ####[facility]ORATORYCLIA [id number] [place] [address] [place] CO2 [Moles/Vol] 27 mmol/L Normal 22-30 [facility] Comment on above: Order Comment: Speci men Type: BLOOD SPECIMENOrdering Facility: [facility] Address: [address] [place] [address] Performed By: #### 2 4322, ####[facility]ENTERCLIA [id number] [address] STATES OF [facility] Creatinine [Mass/Vol] 0.50 mg/dL Low 0.73-1.22 [facility] Comment on above: Order Comment: Speci men Type: BLOOD SPECIMENOrdering Facility: [facility] Address: [address] [place] [address] Performed By: #### 2 4320-06, ####[facility]ORATORYCLIA [id number] [address] ESTIMATED GLOMERULAR FILTRATION RATE 110 mL/min/1.73m??? Normal >=60 [facility] Comment on above: Order Comment: Speci men Type: BLOOD SPECIMENOrdering Facility: [facility] Address: [address] [place] [address] Result Comment: Luzmaria mated Glomerular Filtration Rate [...] reflect actual GFR. Performed By: #### 2 2, ####[facility]ORATORYCLIA [id number] [place] [address] [place] Glucose [Mass/Vol] 101 mg/dL High 74-99 [facility] Comment on above: Order Comment: Shira feldman Type: BLOOD SPECIMENOrdering Facility: [facility] Address: [address] [place] [address] Result Comment: The [place] [employer] (ADA) provides guidance for cutoff [...] Standards of Medical Care in Diabetes 2016, [place] [employer]. Diabetes Care. 2016.39(Suppl 1). Performed By: #### 2 ####[facility]ORATORYCLIA [id number] [place] [address] [place] Potassium [Moles/Vol] 3.6 mmol/L Low 3.7-5.1 [facility] Comment on above: Order Comment: Shira feldman Type: BLOOD SPECIMENOrdering Facility: [facility] Address: [address] [place] [address] Performed By: #### 2 ####[facility]ORATORYCLIA [id number] [place] [address] [place] Sodium [Moles/Vol] 138 mmol/L Normal 136-144 [facility] Comment on above: Order Comment: Shira feldman Type: BLOOD SPECIMENOrdering Facility: [facility] Address: [address] [place] [address] Performed By: #### 2 ####[facility] LABORATORYCLIA [id number] [place] [address] [place] Urea nitrogen [Mass/Vol] 11 mg/dL Normal 9-24 [facility] Comment on above: Order Comment: Speci men Type: BLOOD SPECIMENOrdering Facility: [facility] Address: [address] [place] [address] Performed By: #### 2 4321-2, 16104-8 ####[facility]ORATORYCLIA [id number] [address] [place] CASE MANAGEMon 08-16-2021 CASE MANAGEM Normal [facility] CBC W Auto Differential pane l (Bld)on 08-16-2021 Basophils (Bld) [#/Vol] 0.03 10*3/uL Normal <0.11 [facility] Comment on above: Order Comment: Speci men Type: BLOOD SPECIMENOrdering Facility: [facility] Address: [address] [place] [address] Performed By: #### 5 7021-8 ####[facility] LABORATORYCLIA [id number] [address] [place] Basophils/100 WBC (Bld) 0.4 % Normal [facility] Comment on above: Order Comment: Speci men Type: BLOOD SPECIMENOrdering Facility: [facility] Address: [address] [place] [address] Performed By: #### 5 7021-8 ####[facility] LABORATORYCLIA [id number] [address] [place] Differential cell count method Nom (Bld) Auto Normal [facility] Comment on above: Order Comment: Speci men Type: BLOOD SPECIMENOrdering Facility: [facility] Address: [address] [place] [address] Performed By: #### 5 7021-8 ####[facility]ORATORYCLIA [id number] [place] [address] [place] Eosinophils (Bld) [#/Vol] 0.19 10*3/uL Normal <0.46 [facility] Comment on above: Order Comment: Speci men Type: BLOOD SPECIMENOrdering Facility: [facility] Address: [address] [place] [address] Performed By: #### 5 7021-8 ####[facility]ORATORYCLIA [id number] [address] Eosinophils/100 WBC (Bld) 2.5 % Normal [facility] Comment on above: Order Comment: Speci men Type: BLOOD SPECIMENOrdering Facility: [facility] Address: [address] [place] [address] Performed By: #### 5 7021-8 ####[facility]ORATORYCLIA [id number] [address] Erythrocyte distribution width (RBC) [Ratio] 17.1 % High 11.5-15.0 [facility] Comment on above: Order Comment: Speci men Type: BLOOD SPECIMENOrdering Facility: [facility] Address: [address] [place] [address] Performed By: #### 5 7021-8 ####[facility]ORATORYCLIA [id number] [address] Hematocrit (Bld) [Volume fraction] 29.2 % Low 39.0-51.0 [facility] Comment on above: Order Comment: Speci men Type: BLOOD SPECIMENOrdering Facility: [facility] Address: [address] [place] [address] Performed By: #### 5 7021-8 ####[facility]ORATORYCLIA [id number] [address] Hemoglobin (Bld) [Mass/Vol] 9.0 g/dL Low 13.0-17.0 [facility] Comment on above: Order Comment: Speci men Type: BLOOD SPECIMENOrdering Facility: [facility] Address: [address] [place] [address] Performed By: #### 5 7021-8 ####[facility]ORATORYCLIA [id number] [address] [place] IMMATURE GRAN % 0.3 % Normal [facility] Comment on above: Order Comment: Speci men Type: BLOOD SPECIMENOrdering Facility: [facility] Address: [address] [place] [address] Performed By: #### 5 7021-8 ####[facility]ORATORYCLIA [id number] [address] IMMATURE GRAN ABS <0.03 Normal <0.10 [facility] Comment on above: Order Comment: Speci men Type: BLOOD SPECIMENOrdering Facility: [facility] Address: [address] [place] [address] Performed By: #### 5 7021-8 ####[facility]ORATORYCLIA [id number] [address] Lymphocytes (Bld) [#/Vol] 1.41 10*3/uL Normal 1.00-4.00 [facility] Comment on above: Order Comment: Speci men Type: BLOOD SPECIMENOrdering Facility: [facility] Address: [address] [place] [address] Performed By: #### 5 7021-8 ####[facility] LABORATORYCLIA [id number] [address] Lymphocytes/100 WBC (Bld) 18.4 % Normal [facility] Comment on above: Order Comment: Speci men Type: BLOOD SPECIMENOrdering Facility: [facility] Address: [address] [place] [address] Performed By: #### 5 7021-8 ####[facility] LABORATORYCLIA [id number] [address] MCH (RBC) [Entitic mass] 28.0 pg Normal 26.0-34.0 [facility] Comment on above: Order Comment: Speci men Type: BLOOD SPECIMENOrdering Facility: [facility] Address: [address] [place] [address] Performed By: #### 5 7021-8 ####[facility]ORATORYCLIA [id number] [address] MCHC (RBC) [Mass/Vol] 30.8 g/dL Normal 30.5-36.0 [facility] Comment on above: Order Comment: Speci men Type: BLOOD SPECIMENOrdering Facility: [facility] Address: [address] [place] [address] Performed By: #### 5 7021-8 ####[facility]ORATORYCLIA [id number] [address] [place] MCV (RBC) [Entitic vol] 91.0 fL Normal 80.0-100.0 [facility] Comment on above: Order Comment: Speci men Type: BLOOD SPECIMENOrdering Facility: [facility] Address: [address] [place] [address] Performed By: #### 5 7021-8 ####[facility]ORATORYCLIA [id number] [address] STATES [facility] Monocytes (Bld) [#/Vol] 0.47 10*3/uL Normal <0.87 [facility] Comment on above: Order Comment: Speci men Type: BLOOD SPECIMENOrdering Facility: [facility] Address: [address] [place] [address] Performed By: #### 5 7021-8 ####[facility]ORATORYCLIA [id number] [address] Monocytes/100 WBC (Bld) 6.1 % Normal [facility] Comment on above: Order Comment: Speci men Type: BLOOD SPECIMENOrdering Facility: [facility] Address: [address] [place] [address] Performed By: #### 5 7021-8 ####[facility]ORATORYCLIA [id number] [address] [place] Neutrophils (Bld) [#/Vol] 5.55 10*3/uL Normal 1.45-7.50 [facility] Comment on above: Order Comment: Speci men Type: BLOOD SPECIMENOrdering Facility: [facility] Address: [address] [place], [place] [id number] Performed By: #### 5 7021-8 ####[facility]ORATORYCLIA [id number] [address] Neutrophils/100 WBC (Bld) 72.3 % Normal [facility] Comment on above: Order Comment: Speci men Type: BLOOD SPECIMENOrdering Facility: [facility] Address: [address] [place] [address] Performed By: #### 5 7021-8 ####[facility]ORATORYCLIA [id number] [address] [place] Nucleated RBC (Bld) [#/Vol] 10*3/uL Normal <0.01 [facility] Comment on above: Order Comment: Speci men Type: BLOOD SPECIMENOrdering Facility: [facility] Address: [address] [place] [address] Performed By: #### 5 7021-8 ####[facility]ORATORYCLIA [id number] [address] Nucleated RBC/100 WBC (Bld) [Ratio] 0.0 /100 WBC Normal [facility] Comment on above: Order Comment: Speci men Type: BLOOD SPECIMENOrdering Facility: [facility] Address: [address] [place] [address] Performed By: #### 5 7021-8 ####[facility]ORATORYCLIA [id number] [address] [place] Platelet mean volume (Bld) [Entitic vol] 9.3 fL Normal 9.0-12.7 [facility] Comment on above: Order Comment: Speci men Type: BLOOD SPECIMENOrdering Facility: [facility] Address: [address] [place] [address] Performed By: #### 5 7021-8 ####[facility]ATORYCLIA [id number] [address] [place] Platelets (Bld) [#/Vol] 319 10*3/uL Normal 150-400 [facility] Comment on above: Order Comment: Speci men Type: BLOOD SPECIMENOrdering Facility: [facility] Address: [address] [place] [address] Performed By: #### 5 7021-8 ####[facility] LABORATORYCLIA [id number] [address] [place] RBC (Bld) [#/Vol] 3.21 10*6/uL Low 4.20-6.00 [facility] Comment on above: Order Comment: Speci men Type: BLOOD SPECIMENOrdering Facility: [facility] Address: [address] [place] [address] Performed By: #### 5 7021-8 ####[facility]ORATORYCLIA [id number] [address] [place] WBC (Bld) [#/Vol] 7.67 10*3/uL Normal 3.70-11.00 [facility] Comment on above: Order Comment: Speci men Type: BLOOD SPECIMENOrdering Facility: [facility] Address: [address] [place] [address] Performed By: #### 5 7021-8 ####[facility]ORATORYCLIA [id number] [address] [place] Basophils (Bld) [#/Vol] 0.04 10*3/uL Normal <0.11 [facility] Comment on above: Order Comment: Speci men Type: BLOOD SPECIMENOrdering Facility: [facility] Address: [address] [place] [address] Performed By: #### 5 7021-8 ####[facility]ORATORYCLIA [id number] [address] [place] Basophils/100 WBC (Bld) 0.5 % Normal [facility] Comment on above: Order Comment: Speci men Type: BLOOD SPECIMENOrdering Facility: [facility] Address: [address] [place] [address] Performed By: #### 5 7021-8 ####[facility]ORATORYCLIA [id number] [address] Differential cell count method Nom (Bld) Auto Normal [facility] Comment on above: Order Comment: Speci men Type: BLOOD SPECIMENOrdering Facility: [facility] Address: [address] [place] [address] Performed By: #### 5 7021-8 ####[facility]ORATORYCLIA [id number] [address] [place] Eosinophils (Bld) [#/Vol] 0.19 10*3/uL Normal <0.46 [facility] Comment on above: Order Comment: Speci men Type: BLOOD SPECIMENOrdering Facility: [facility] Address: [address] [place] [address] Performed By: #### 5 7021-8 ####[facility]ORATORYCLIA [id number] [address] Eosinophils/100 WBC (Bld) 2.5 % Normal [facility] Comment on above: Order Comment: Speci men Type: BLOOD SPECIMENOrdering Facility: [facility] Address: [address] [place] [address] Performed By: #### 5 7021-8 ####[facility]ORATORYCLIA [id number] [address] Erythrocyte distribution width (RBC) [Ratio] 17.2 % High 11.5-15.0 [facility] Comment on above: Order Comment: Speci men Type: BLOOD SPECIMENOrdering Facility: [facility] Address: [address] [place] [address] Performed By: #### 5 7021-8 ####[facility]ORATORYCLIA [id number] [address] [place] Hematocrit (Bld) [Volume fraction] 29.5 % Low 39.0-51.0 [facility] Comment on above: Order Comment: Speci men Type: BLOOD SPECIMENOrdering Facility: [facility] Address: [address] [place] [address] Performed By: #### 5 7021-8 ####[facility]ORATORYCLIA [id number] [address] STATES OF [facility] Hemoglobin (Bld) [Mass/Vol] 9.2 g/dL Low 13.0-17.0 [facility] Comment on above: Order Comment: Speci men Type: BLOOD SPECIMENOrdering Facility: [facility] Address: [address] [place] [address] Performed By: #### 5 7021-8 ####[facility]ORATORYCLIA [id number] [address] IMMATURE GRAN % 0.4 % Normal [facility] Comment on above: Order Comment: Speci men Type: BLOOD SPECIMENOrdering Facility: [facility] Address: [address] [place] [address] Performed By: #### 5 7021-8 ####[facility]ATORYCLIA [id number] [address] IMMATURE GRAN ABS 0.03 k/uL Normal <0.10 [facility] Comment on above: Order Comment: Speci men Type: BLOOD SPECIMENOrdering Facility: [facility] Address: [address] [place] [address] Performed By: #### 5 7021-8 ####[facility]ATORYCLIA [id number] [address] [place] Lymphocytes (Bld) [#/Vol] 1.50 10*3/uL Normal 1.00-4.00 [facility] Comment on above: Order Comment: Speci men Type: BLOOD SPECIMENOrdering Facility: [facility] Address: [address] [place] [address] Performed By: #### 5 7021-8 ####[facility]ORATORYCLIA [id number] [address] Lymphocytes/100 WBC (Bld) 19.7 % Normal [facility] Comment on above: Order Comment: Speci men Type: BLOOD SPECIMENOrdering Facility: [facility] Address: [address] [place] [address] Performed By: #### 5 7021-8 ####[facility]ORATORYCLIA [id number] [address] MCH (RBC) [Entitic mass] 28.3 pg Normal 26.0-34.0 [facility] Comment on above: Order Comment: Speci men Type: BLOOD SPECIMENOrdering Facility: [facility] Address: [address] [place] [address] Performed By: #### 5 7021-8 ####[facility]ORATORYCLIA [id number] [address] MCHC (RBC) [Mass/Vol] 31.2 g/dL Normal 30.5-36.0 [facility] Comment on above: Order Comment: Speci men Type: BLOOD SPECIMENOrdering Facility: [facility] Address: [address] [place] [address] Performed By: #### 5 7021-8 ####[facility]ORATORYCLIA [id number] [address] STATES [facility] MCV (RBC) [Entitic vol] 90.8 fL Normal 80.0-100.0 [facility] Comment on above: Order Comment: Speci men Type: BLOOD SPECIMENOrdering Facility: [facility] Address: [address] [place] [address] Performed By: #### 5 7021-8 ####[facility]ORATORYCLIA [id number] [address] Monocytes (Bld) [#/Vol] 0.49 10*3/uL Normal <0.87 [facility] Comment on above: Order Comment: Speci men Type: BLOOD SPECIMENOrdering Facility: [facility] Address: [address] [place] [address] Performed By: #### 5 7021-8 ####[facility]ORATORYCLIA [id number] [address] Monocytes/100 WBC (Bld) 6.4 % Normal [facility] Comment on above: Order Comment: Speci men Type: BLOOD SPECIMENOrdering Facility: [facility] Address: [address] [address] Performed By: #### 5 7021-8 ####[facility]ORATORYCLIA [id number] [address] [place] Neutrophils (Bld) [#/Vol] 5.38 10*3/uL Normal 1.45-7.50 [facility] Comment on above: Order Comment: Speci men Type: BLOOD SPECIMENOrdering Facility: [facility] Address: [address] [place] [address] Performed By: #### 5 7021-8 ####[facility]ORATORYCLIA [id number] [address] [place] Neutrophils/100 WBC (Bld) 70.5 % Normal [facility] Comment on above: Order Comment: Speci men Type: BLOOD SPECIMENOrdering Facility: [facility] Address: [address] [place] [address] Performed By: #### 5 7021-8 ####[facility]ORATORYCLIA [id number] [address] [place] Nucleated RBC (Bld) [#/Vol] 10*3/uL Normal <0.01 [facility] Comment on above: Order Comment: Speci men Type: BLOOD SPECIMENOrdering Facility: [facility] Address: [address] [address] Performed By: #### 5 7021-8 ####[facility]ORATORYCLIA [id number] [address] [place] Nucleated RBC/100 WBC (Bld) [Ratio] 0.0 /100 WBC Normal [facility] Comment on above: Order Comment: Speci men Type: BLOOD SPECIMENOrdering Facility: [facility] Address: [address] [address] Performed By: #### 5 7021-8 ####[facility]ORATORYCLIA [id number] [place] [address] [place] Platelet mean volume (Bld) [Entitic vol] 9.0 fL Normal 9.0-12.7 [facility] Comment on above: Order Comment: Speci men Type: BLOOD SPECIMENOrdering Facility: [facility] Address: [address] [place] [address] Performed By: #### 5 7021-8 ####[facility]ORATORYCLIA [id number] [place] [address] [place] Platelets (Bld) [#/Vol] 316 10*3/uL Normal 150-400 [facility] Comment on above: Order Comment: Speci men Type: BLOOD SPECIMENOrdering Facility: [facility] Address: [address] [place] [address] Performed By: #### 5 7021-8 ####[facility]ORATORYCLIA [id number] [place] [address] [place] RBC (Bld) [#/Vol] 3.25 10*6/uL Low 4.20-6.00 [facility] Comment on above: Order Comment: Speci men Type: BLOOD SPECIMENOrdering Facility: [facility] Address: [address] [place] [address] Performed By: #### 5 7021-8 ####[facility]ORATORYCLIA [id number] [address] [place] WBC (Bld) [#/Vol] 7.63 10*3/uL Normal 3.70-11.00 [facility] Comment on above: Order Comment: Speci men Type: BLOOD SPECIMENOrdering Facility: [facility] Address: [address] [place] [address] Performed By: #### 5 7021-8 ####[facility]ORATORYCLIA [id number] [address] [place] Basophils (Bld) [#/Vol] Normal <0.11 [facility] Comment on above: Order Comment: Speci men Type: BLOOD SPECIMENOrdering Facility: [facility] Address: [address] [place] [address] Result Comment: Carolina Owens RN informed lab after results autoverified that she rd on the wrong patient. Lab to credit. Nurse to redraw on correct patient.Corrected result: Previously reported as 0.04 k/uL on 08/16/2021 at 4:44 AM EDT. Performed By: #### 5 7021-8 ####[facility] LABORATORYCLIA [id number] [address] STATES OF [facility] Basophils/100 WBC (Bld) Normal [facility] Comment on above: Order Comment: Johni francia Type: BLOOD SPECIMENOrdering Facility: [facility] Address: [address] [place] [address] Result Comment: Tati ected result: Previously reported as 0.4 % on 08/16/2021 at 4:44 AM EDT. Performed By: #### 5 7021-8 ####[facility] LABORATORYCLIA [id number] [address] [place] [facility] [facility] CBC W Differential panel, method unspecified (Bld) Normal [facility] Comment on above: Order Comment: Speccara feldman Type: BLOOD SPECIMENOrdering Facility: [facility] Address: [address] [place] [address] Result Comment: Carolina Owens RN informed lab after results autoverified that she rd on the wrong patient. Lab to credit. Nurse to redraw on correct patient. Performed By: #### 5 7021-8 ####[facility] LABORATORYCLIA [id number] [address] STATES OF [facility] Differential cell count method Nom (Bld) Normal [facility] Comment on above: Order Comment: Speci francia Type: BLOOD SPECIMENOrdering Facility: [facility] Address: [address] [place] [address] Result Comment: Carolina Owens RN informed lab after results autoverified that she rd on the wrong patient. Lab to credit. Nurse to redraw on correct patient.Corrected result: Previously reported as Auto on 08/16/2021 at 4:44 AM EDT. Performed By: #### 5 7021-8 ####[facility]ORATORYCLIA [id number] [address] Eosinophils (Bld) [#/Vol] Normal <0.46 [facility] Comment on above: Order Comment: Speci men Type: BLOOD SPECIMENOrdering Facility: [facility] Address: [address] [place] [address] Result Comment: Carolina Owens RN informed lab after results autoverified that she rd on the wrong patient. Lab to credit. Nurse to redraw on correct patient.Corrected result: Previously reported as 0.07 k/uL on 08/16/2021 at 4:44 AM EDT. Performed By: #### 5 7021-8 ####[facility] LABORATORYCLIA [id number] [address] Eosinophils/100 WBC (Bld) Normal [facility] Comment on above: Order Comment: Speci men Type: BLOOD SPECIMENOrdering Facility: [facility] Address: [address] [place] [address] Result Comment: Carolina Owens RN informed lab after results autoverified that she rd on the wrong patient. Lab to credit. Nurse to redraw on correct patient.Corrected result: Previously reported as 0.7 % on 08/16/2021 at 4:44 AM EDT. Performed By: #### 5 7021-8 ####[facility] LABORATORYCLIA [id number] [address] Erythrocyte distribution width (RBC) [Ratio] Normal 11.5-15.0 [facility] Comment on above: Order Comment: Speci men Type: BLOOD SPECIMENOrdering Facility: [facility] Address: [address] [place] [address] Result Comment: Carolina Owens RN informed lab after results autoverified that she rd on the wrong patient. Lab to credit. Nurse to redraw on correct patient.Corrected result: Previously reported as 14.2 % on 08/16/2021 at 4:44 AM EDT. Performed By: #### 5 7021-8 ####[facility] LABORATORYCLIA [id number] [address] Hematocrit (Bld) [Volume fraction] Normal 39.0-51.0 [facility] Comment on above: Order Comment: Speci men Type: BLOOD SPECIMENOrdering Facility: [facility] Address: [address] [place] [address] Result Comment: Carolina Owens RN informed lab after results autoverified that she rd on the wrong patient. Lab to credit. Nurse to redraw on correct patient.Corrected result: Previously reported as 34.3 % on 08/16/2021 at 4:44 AM EDT. Performed By: #### 5 7021-8 ####[facility] LABORATORYCLIA [id number] [address] Hemoglobin (Bld) [Mass/Vol] Normal 13.0-17.0 [facility] Comment on above: Order Comment: Speci men Type: BLOOD SPECIMENOrdering Facility: [facility] Address: [address] [place] [address] Result Comment: Carolina Owens RN informed lab after results autoverified that she rd on the wrong patient. Lab to credit. Nurse to redraw on correct patient.Corrected result: Previously reported as 11.2 g/dL on 08/16/2021 at 4:44 AM EDT. Performed By: #### 5 7021-8 ####[facility] LABORATORYCLIA [id number] [address] [place] IMMATURE GRAN % Normal [facility] Comment on above: Order Comment: Speci men Type: BLOOD SPECIMENOrdering Facility: [facility] Address: [address] [place] [address] Result Comment: Carolina Owens RN informed lab after results autoverified that she rd on the wrong patient. Lab to credit. Nurse to redraw on correct patient.Corrected result: Previously reported as 0.8 % on 08/16/2021 at 4:44 AM EDT. Performed By: #### 5 7021-8 ####[facility] LABORATORYCLIA [id number] [address] STATES [facility] IMMATURE GRAN ABS Normal <0.10 [facility] Comment on above: Order Comment: Speci men Type: BLOOD SPECIMENOrdering Facility: [facility] Address: [address] [place] [address] Result Comment: Tati ected result: Previously reported as 0.08 k/uL on 08/16/2021 at 4:44 AM EDT. Performed By: #### 5 7021-8 ####[facility] LABORATORYCLIA [id number] [address] Lymphocytes (Bld) [#/Vol] Normal 1.00-4.00 [facility] Comment on above: Order Comment: Speci [facility] Type: BLOOD SPECIMENOrdering Facility: [facility] Address: [address] [place] [address] Result Comment: Carolina Owens RN informed lab after results autoverified that she rd on the wrong patient. Lab to credit. Nurse to redraw on correct patient.Corrected result: Previously reported as 1.17 k/uL on 08/16/2021 at 4:44 AM EDT. Performed By: #### 5 7021-8 ####[facility]ORATORYCLIA [id number] [address] Lymphocytes/100 WBC (Bld) Normal [facility] Comment on above: Order Comment: Speci men Type: BLOOD SPECIMENOrdering Facility: [facility] Address: [address] [place] [address] Result Comment: Carolina Owens RN informed lab after results autoverified that she rd on the wrong patient. Lab to credit. Nurse to redraw on correct patient.Corrected result: Previously reported as 12.0 % on 08/16/2021 at 4:44 AM EDT. Performed By: #### 5 7021-8 ####[facility] LABORATORYCLIA [id number] [place] [address] [place] MCHC (RBC) [Mass/Vol] Normal 30.5-36.0 [facility] Comment on above: Order Comment: Speci men Type: BLOOD SPECIMENOrdering Facility: [facility] Address: [address] [place] [address] Result Comment: Carolina Owens RN informed lab after results autoverified that she rd on the wrong patient. Lab to credit. Nurse to redraw on correct patient.Corrected result: Previously reported as 32.7 g/dL on 08/16/2021 at 4:44 AM EDT. Performed By: #### 5 7021-8 ####[facility]ORATORYCLIA [id number] [address] MCV (RBC) [Entitic vol] Normal 80.0-100.0 [facility] Comment on above: Order Comment: Speci men Type: BLOOD SPECIMENOrdering Facility: [facility] Address: [address] [place] [address] Result Comment: Carolina Owens RN informed lab after results autoverified that she rd on the wrong patient. Lab to credit. Nurse to redraw on correct patient.Corrected result: Previously reported as 94.2 fL on 08/16/2021 at 4:44 AM EDT. Performed By: #### 5 7021-8 ####[facility] LABORATORYCLIA [id number] [address] [place] Monocytes (Bld) [#/Vol] Normal <0.87 [facility] Comment on above: Order Comment: Speci men Type: BLOOD SPECIMENOrdering Facility: [facility] Address: [address] [place] [address] Result Comment: Carolina Owens RN informed lab after results autoverified that she rd on the wrong patient. Lab to credit. Nurse to redraw on correct patient.Corrected result: Previously reported as 0.99 k/uL on 08/16/2021 at 4:44 AM EDT. Performed By: #### 5 7021-8 ####[facility]ORATORYCLIA [id number] [address] [place] Monocytes/100 WBC (Bld) Normal [facility] Comment on above: Order Comment: Speci francia Type: BLOOD SPECIMENOrdering Facility: [facility] Address: [address] [place] [address] Result Comment: Carolina Owens RN informed lab after results autoverified that she rd on the wrong patient. Lab to credit. Nurse to redraw on correct patient.Corrected result: Previously reported as 10.2 % on 08/16/2021 at 4:44 AM EDT. Performed By: #### 5 7021-8 ####[facility]ORATORYCLIA [id number] [address] STATES [place] Neutrophils (Bld) [#/Vol] Normal 1.45-7.50 [facility] Comment on above: Order Comment: Speccara feldman Type: BLOOD SPECIMENOrdering Facility: [facility] Address: [address] [place] [address] Result Comment: Carolina Owens RN informed lab after results autoverified that she rd on the wrong patient. Lab to credit. Nurse to redraw on correct patient.Corrected result: Previously reported as 7.40 k/uL on 08/16/2021 at 4:44 AM EDT. Performed By: #### 5 7021-8 ####[facility] LABORATORYCLIA [id number] [address] STATES OF [facility] Neutrophils/100 WBC (Bld) Normal [facility] Comment on above: Order Comment: Speci francia Type: BLOOD SPECIMENOrdering Facility: [facility] Address: [address] [place] [address] Result Comment: Carolina Owens RN informed lab after results autoverified that she rd on the wrong patient. Lab to credit. Nurse to redraw on correct patient.Corrected result: Previously reported as 75.9 % on 08/16/2021 at 4:44 AM EDT. Performed By: #### 5 7021-8 ####[facility] LABORATORYCLIA [id number] [place] [address] [place] Platelet mean volume (Bld) [Entitic vol] Normal 9.0-12.7 [facility] Comment on above: Order Comment: Speci men Type: BLOOD SPECIMENOrdering Facility: [facility] Address: [address] [place] [address] Result Comment: Carolina Owens RN informed lab after results autoverified that she rd on the wrong patient. Lab to credit. Nurse to redraw on correct patient.Corrected result: Previously reported as 9.1 fL on 08/16/2021 at 4:44 AM EDT. Performed By: #### 5 7021-8 ####[facility] LABORATORYCLIA [id number] [place] [address] [place] Platelets (Bld) [#/Vol] Normal 150-400 [facility] Comment on above: Order Comment: Speci men Type: BLOOD SPECIMENOrdering Facility: [facility] Address: [address] [place] [address] Result Comment: Carolina Owens RN informed lab after results autoverified that she rd on the wrong patient. Lab to credit. Nurse to redraw on correct patient.Corrected result: Previously reported as 338 k/uL on 08/16/2021 at 4:44 AM EDT. Performed By: #### 5 7021-8 ####[facility]ORATORYCLIA [id number] [place] [address] [place] RBC (Bld) [#/Vol] Normal 4.20-6.00 [facility] Comment on above: Order Comment: Speci men Type: BLOOD SPECIMENOrdering Facility: [facility] Address: [address] [place] [address] Result Comment: Carolina Owens RN informed lab after results autoverified that she rd on the wrong patient. Lab to credit. Nurse to redraw on correct patient.Corrected result: Previously reported as 3.64 m/uL on 08/16/2021 at 4:44 AM EDT. Performed By: #### 5 7021-8 ####[facility] LABORATORYCLIA [id number] [place] [address] [facility] [place] WBC (Bld) [#/Vol] Normal 3.70-11.00 [facility] Comment on above: Order Comment: Speci men Type: BLOOD SPECIMENOrdering Facility: [facility] Address: [address] [place] [address] Result Comment: Carolina Owens RN informed lab after results autoverified that she rd on the wrong patient. Lab to credit. Nurse to redraw on correct patient.Corrected result: Previously reported as 9.75 k/uL on 08/16/2021 at 4:44 AM EDT. Performed By: #### 5 7021-8 ####[facility]ORATORYCLIA [id number] [address] [place] CONSULT PROGon 08-16-2021 CONSULT PROG [facility] Magnesium SerPl-mCncon 08-16 Magnesium [Mass/Vol] 1.8 mg/dL Normal 1.7-2.3 [facility] Comment on above: Order Comment: Speci men Type: BLOOD SPECIMENOrdering Facility: [facility] Address: [address] [place] [address] Performed By: #### 2 4321-2, 90294-3 ####[facility] LABORATORYCLIA [id number] [place] [address] [place] NURSING PROGon 08-16-2021 NURSING PROG Normal [facility] Basic metabolic 2000 panelon 08-15-2021 Anion gap [Moles/Vol] 13 mmol/L Normal 9-18 [facility] Comment on above: Order Comment: Speci men Type: BLOOD SPECIMENOrdering Facility: [facility] Address: [address] [place] [address] Performed By: #### 2 4321-2 ####[facility] LABORATORYCLIA [id number] [place] [address] [place] Calcium [Mass/Vol] 9.0 mg/dL Normal 8.5-10.2 [facility] Comment on above: Order Comment: Speci men Type: BLOOD SPECIMENOrdering Facility: [facility] Address: [address] [address] Performed By: #### 2 4321-2 ####[facility] LABORATORYCLIA [id number] [place] [address] [place] Chloride [Moles/Vol] 95 mmol/L Low 97-105 [facility] Comment on above: Order Comment: Speci men Type: BLOOD SPECIMENOrdering Facility: [facility] Address: [address] [place] [address] Performed By: #### 2 4321-2 ####[facility] LABORATORYCLIA [id number] [place] [address] [place] CO2 [Moles/Vol] 28 mmol/L Normal 22-30 [facility] Comment on above: Order Comment: Speci men Type: BLOOD SPECIMENOrdering Facility: [facility] Address: [address] [place] [address] Performed By: #### 2 4321-2 ####[facility] LABORATORYCLIA [id number] [address] STATES OF [facility] Creatinine [Mass/Vol] 0.50 mg/dL Low 0.73-1.22 [facility] Comment on above: Order Comment: Speci men Type: BLOOD SPECIMENOrdering Facility: [facility] Address: [address] [place] [address] Performed By: #### 2 4321-2 ####[facility] LABORATORYCLIA [id number] [address] ESTIMATED GLOMERULAR FILTRATION RATE 110 mL/min/1.73m??? Normal >=60 [facility] Comment on above: Order Comment: Speci men Type: BLOOD SPECIMENOrdering Facility: [facility] Address: [address] [place] [address] Result Comment: Luzmaria mated Glomerular Filtration Rate [...] Performed By: #### 2 4321-2 ####[facility]ORATORYCLIA [id number] [place] [address] [place] Glucose [Mass/Vol] 106 mg/dL High 74-99 [facility] Comment on above: Order Comment: Shira feldman Type: BLOOD SPECIMENOrdering Facility: [facility] Address: [address] [place] [address] Result Comment: The [place] [employer] (ADA) provides guidance for cutoff [...] Standards of Medical Care in Diabetes 2016, [place] [employer]. Diabetes Care. 2016.39(Suppl 1). Performed By: #### 2 4321-2 ####[facility]ORATORYCLIA [id number] [place] [address] [place] Potassium [Moles/Vol] 3.3 mmol/L Low 3.7-5.1 [facility] Comment on above: Order Comment: Shira feldman Type: BLOOD SPECIMENOrdering Facility: [facility] Address: [address] [address] Performed By: #### 2 4321-2 ####[facility] LABORATORYCLIA [id number] [place] [address] [place] Sodium [Moles/Vol] 136 mmol/L Normal 136-144 [facility] Comment on above: Order Comment: Shira feldman Type: BLOOD SPECIMENOrdering Facility: [facility] Address: [address] [address] Performed By: #### 2 4321-2 ####[facility]ORATORYCLIA [id number] [address] [place] Urea nitrogen [Mass/Vol] 11 mg/dL Normal 9-24 [facility] Comment on above: Order Comment: Speci men Type: BLOOD SPECIMENOrdering Facility: [facility] Address: [address] [place] [address] Performed By: #### 2 4321-2 ####[facility]ORATORYCLIA [id number] [address] [place] CASE MANAGEMon 08-15-2021 CASE MANAGEM Normal [facility] CBC W Auto Differential pane l (Bld)on 08-15-2021 Basophils (Bld) [#/Vol] 0.03 10*3/uL Normal <0.11 [facility] Comment on above: Order Comment: Speci men Type: BLOOD SPECIMENOrdering Facility: [facility] Address: [address] [place] [address] Performed By: #### 5 7021-8 ####[facility]ORATORYCLIA [id number] [address] [place] Basophils/100 WBC (Bld) 0.4 % Normal [facility] Comment on above: Order Comment: Speci men Type: BLOOD SPECIMENOrdering Facility: [facility] Address: [address] [place] [address] Performed By: #### 5 7021-8 ####[facility] LABORATORYCLIA [id number] [address] STATES OF [facility] Differential cell count method Nom (Bld) Auto Normal [facility] Comment on above: Order Comment: Speci men Type: BLOOD SPECIMENOrdering Facility: [facility] Address: [address] [place] [address] Performed By: #### 5 7021-8 ####[facility]ORATORYCLIA [id number] [place] [address] [place] Eosinophils (Bld) [#/Vol] 0.20 10*3/uL Normal <0.46 [facility] Comment on above: Order Comment: Speci men Type: BLOOD SPECIMENOrdering Facility: [facility] Address: [address] [place] [address] Performed By: #### 5 7021-8 ####[facility]ORATORYCLIA [id number] [address] STATES OF [facility] Eosinophils/100 WBC (Bld) 2.5 % Normal [facility] Comment on above: Order Comment: Speci men Type: BLOOD SPECIMENOrdering Facility: [facility] Address: [address] [place] [address] Performed By: #### 5 7021-8 ####[facility]ORATORYCLIA [id number] [address] Erythrocyte distribution width (RBC) [Ratio] 16.7 % High 11.5-15.0 [facility] Comment on above: Order Comment: Speci men Type: BLOOD SPECIMENOrdering Facility: [facility] Address: [address] [place] [address] Performed By: #### 5 7021-8 ####[facility]ORATORYCLIA [id number] [address] Hematocrit (Bld) [Volume fraction] 30.3 % Low 39.0-51.0 [facility] Comment on above: Order Comment: Speci men Type: BLOOD SPECIMENOrdering Facility: [facility] Address: [address] [place] [address] Performed By: #### 5 7021-8 ####[facility] LABORATORYCLIA [id number] [address] [place] Hemoglobin (Bld) [Mass/Vol] 9.4 g/dL Low 13.0-17.0 [facility] Comment on above: Order Comment: Speci men Type: BLOOD SPECIMENOrdering Facility: [facility] Address: [address] [place] [address] Performed By: #### 5 7021-8 ####[facility]ORATORYCLIA [id number] [address] [place] IMMATURE GRAN % 0.4 % Normal [facility] Comment on above: Order Comment: Speci men Type: BLOOD SPECIMENOrdering Facility: [facility] Address: [address] [place] [address] Performed By: #### 5 7021-8 ####[facility]ORATORYCLIA [id number] [address] IMMATURE GRAN ABS 0.03 k/uL Normal <0.10 [facility] Comment on above: Order Comment: Speci men Type: BLOOD SPECIMENOrdering Facility: [facility] Address: [address] [place] [address] Performed By: #### 5 7021-8 ####[facility]ORATORYCLIA [id number] [address] Lymphocytes (Bld) [#/Vol] 1.50 10*3/uL Normal 1.00-4.00 [facility] Comment on above: Order Comment: Speci men Type: BLOOD SPECIMENOrdering Facility: [facility] Address: [address] [place] [address] Performed By: #### 5 7021-8 ####[facility]ORATORYCLIA [id number] [address] Lymphocytes/100 WBC (Bld) 18.5 % Normal [facility] Comment on above: Order Comment: Speci men Type: BLOOD SPECIMENOrdering Facility: [facility] Address: [address] [place] [address] Performed By: #### 5 7021-8 ####[facility] LABORATORYCLIA [id number] [address] STATES [facility] MCH (RBC) [Entitic mass] 29.0 pg Normal 26.0-34.0 [facility] Comment on above: Order Comment: Speci men Type: BLOOD SPECIMENOrdering Facility: [facility] Address: [address] [place] [address] Performed By: #### 5 7021-8 ####[facility]ORATORYCLIA [id number] [address] STATES OF [facility] MCHC (RBC) [Mass/Vol] 31.0 g/dL Normal 30.5-36.0 [facility] Comment on above: Order Comment: Speci men Type: BLOOD SPECIMENOrdering Facility: [facility] Address: [address] [place] [address] Performed By: #### 5 7021-8 ####[facility]ORATORYCLIA [id number] [address] MCV (RBC) [Entitic vol] 93.5 fL Normal 80.0-100.0 [facility] Comment on above: Order Comment: Speci men Type: BLOOD SPECIMENOrdering Facility: [facility] Address: [address] [place] [address] Performed By: #### 5 7021-8 ####[facility]ORATORYCLIA [id number] [address] [place] Monocytes (Bld) [#/Vol] 0.47 10*3/uL Normal <0.87 [facility] Comment on above: Order Comment: Speci men Type: BLOOD SPECIMENOrdering Facility: [facility] Address: [address] [place] [address] Performed By: #### 5 7021-8 ####[facility]ORATORYCLIA [id number] [address] Monocytes/100 WBC (Bld) 5.8 % Normal [facility] Comment on above: Order Comment: Speci men Type: BLOOD SPECIMENOrdering Facility: [facility] Address: [address] [place] [address] Performed By: #### 5 7021-8 ####[facility]ORATORYCLIA [id number] [address] [place] Neutrophils (Bld) [#/Vol] 5.87 10*3/uL Normal 1.45-7.50 [facility] Comment on above: Order Comment: Speci men Type: BLOOD SPECIMENOrdering Facility: [facility] Address: [address] [place] [address] Performed By: #### 5 7021-8 ####[facility]ORATORYCLIA [id number] [address] Neutrophils/100 WBC (Bld) 72.4 % Normal [facility] [facility] Comment on above: Order Comment: Speci men Type: BLOOD SPECIMENOrdering Facility: [facility] Address: [address] [place] [address] Performed By: #### 5 7021-8 ####[facility]ATORYCLIA [id number] [address] Nucleated RBC (Bld) [#/Vol] 10*3/uL Normal <0.01 [facility] Comment on above: Order Comment: Speci men Type: BLOOD SPECIMENOrdering Facility: [facility] Address: [address] [place] [address] Performed By: #### 5 7021-8 ####[facility]ORATORYCLIA [id number] [address] Nucleated RBC/100 WBC (Bld) [Ratio] 0.0 /100 WBC Normal [facility] Comment on above: Order Comment: Speci men Type: BLOOD SPECIMENOrdering Facility: [facility] Address: [address] [place] [address] Performed By: #### 5 7021-8 ####[facility]ORATORYCLIA [id number] [address] Platelet mean volume (Bld) [Entitic vol] 9.4 fL Normal 9.0-12.7 [facility] Comment on above: Order Comment: Speci men Type: BLOOD SPECIMENOrdering Facility: [facility] Address: [address] [place] [address] Performed By: #### 5 7021-8 ####[facility]ORATORYCLIA [id number] [address] [place] Platelets (Bld) [#/Vol] 290 10*3/uL Normal 150-400 [facility] Comment on above: Order Comment: Speci men Type: BLOOD SPECIMENOrdering Facility: [facility] Address: [address] [place] [address] Performed By: #### 5 7021-8 ####[facility]ORATORYCLIA [id number] [address] STATES OF [facility] RBC (Bld) [#/Vol] 3.24 10*6/uL Low 4.20-6.00 [facility] Comment on above: Order Comment: Speci men Type: BLOOD SPECIMENOrdering Facility: [facility] Address: [address] [place] [address] Performed By: #### 5 7021-8 ####[facility]ORATORYCLIA [id number] [address] STATES OF [facility] WBC (Bld) [#/Vol] 8.10 10*3/uL Normal 3.70-11.00 [facility] Comment on above: Order Comment: Speci men Type: BLOOD SPECIMENOrdering Facility: [facility] Address: [address] [place] [address] Performed By: #### 5 7021-8 ####[facility]ORATORYCLIA [id number] [address] OF [facility] THERAPY NTon 08-15-2021 THERAPY NT Normal [facility] THERAPY NT Normal [facility] THERAPY NT Normal [facility] Basic metabolic 2000 panelon 08-14-2021 Anion gap [Moles/Vol] 10 mmol/L Normal 9-18 [facility] Comment on above: Order Comment: Speci men Type: BLOOD SPECIMENOrdering Facility: [facility] Address: [address] [place] [address] Performed By: #### 2 4321-2 ####[facility]ORATORYCLIA [id number] [address] [place] Calcium [Mass/Vol] 8.8 mg/dL Normal 8.5-10.2 [facility] Comment on above: Order Comment: Speci men Type: BLOOD SPECIMENOrdering Facility: [facility] Address: [address] [place] [address] Performed By: #### 2 4321-2 ####[facility]ORATORYCLIA [id number] [place] [address] [place] Chloride [Moles/Vol] 92 mmol/L Low 97-105 [facility] Comment on above: Order Comment: Speci men Type: BLOOD SPECIMENOrdering Facility: [facility] Address: [address] [place] [address] Performed By: #### 2 4321-2 ####[facility]ORATORYCLIA [id number] [place] [address] [place] CO2 [Moles/Vol] 29 mmol/L Normal 22-30 [facility] Comment on above: Order Comment: Speci men Type: BLOOD SPECIMENOrdering Facility: [facility] Address: [address] [place] [address] Performed By: #### 2 4321-2 ####[facility]ORATORYCLIA [id number] [place] [address] [place] Creatinine [Mass/Vol] 0.49 mg/dL Low 0.73-1.22 [facility] Comment on above: Order Comment: Speci men Type: BLOOD SPECIMENOrdering Facility: [facility] Address: [address] [place] [address] Performed By: #### 2 4321-2 ####[facility]ORATORYCLIA [id number] [address] OF [facility] ESTIMATED GLOMERULAR FILTRATION RATE 111 mL/min/1.73m??? Normal >=60 [facility] Comment on above: Order Comment: Speci men Type: BLOOD SPECIMENOrdering Facility: [facility] Address: [address] [place] [address] Result Comment: Luzmaria mated Glomerular Filtration Rate [...] Performed By: #### 2 4321-2 ####[facility]ORATORYCLIA [id number] [place] [address] [place] Glucose [Mass/Vol] 104 mg/dL High 74-99 [facility] Comment on above: Order Comment: Shira feldman Type: BLOOD SPECIMENOrdering Facility: [facility] Address: [address] [id number] Result Comment: The [place] [employer] (ADA) provides guidance for cutoff [...] Standards of Medical Care in Diabetes 2016, [place] [employer]. Diabetes Care. 2016.39(Suppl 1). Performed By: #### 2 4321-2 ####[facility]ORATORYCLIA [id number] [place] [address] [place] Potassium [Moles/Vol] 3.1 mmol/L Low 3.7-5.1 [facility] Comment on above: Order Comment: Shira feldman Type: BLOOD SPECIMENOrdering Facility: [facility] Address: [address] [place] [address] Performed By: #### 2 4321-2 ####[facility]ORATORYCLIA [id number] [place] [address] [place] Sodium [Moles/Vol] 131 mmol/L Low 136-144 [facility] Comment on above: Order Comment: Shira feldman Type: BLOOD SPECIMENOrdering Facility: [facility] Address: [address] [address] Performed By: #### 2 4321-2 ####[facility]ORATORYCLIA [id number] [address] STATES [facility] Urea nitrogen [Mass/Vol] 13 mg/dL Normal 9-24 [facility] Comment on above: Order Comment: Speci men Type: BLOOD SPECIMENOrdering Facility: [facility] Address: [address] [place] [address] Performed By: #### 2 4321-2 ####[facility]ORATORYCLIA [id number] [address] [place] CBC W Auto Differential pane l (Bld)on 08-14-2021 Basophils (Bld) [#/Vol] 10*3/uL Normal <0.11 [facility] Comment on above: Order Comment: Speci men Type: BLOOD SPECIMENOrdering Facility: [facility] Address: [address] [place] [address] Performed By: #### 5 7021-8 ####[facility]ORATORYCLIA [id number] [address] [place] Basophils/100 WBC (Bld) 0.2 % Normal [facility] Comment on above: Order Comment: Speci men Type: BLOOD SPECIMENOrdering Facility: [facility] Address: [address] [place] [address] Performed By: #### 5 7021-8 ####[facility]ORATORYCLIA [id number] [address] Differential cell count method Nom (Bld) Auto Normal [facility] Comment on above: Order Comment: Speci men Type: BLOOD SPECIMENOrdering Facility: [facility] Address: [address] [place] [address] Performed By: #### 5 7021-8 ####[facility]ORATORYCLIA [id number] [place] [address] [place] Eosinophils (Bld) [#/Vol] 0.23 10*3/uL Normal <0.46 [facility] Comment on above: Order Comment: Speci men Type: BLOOD SPECIMENOrdering Facility: [facility] Address: [address] [place] [address] Performed By: #### 5 7021-8 ####[facility]ORATORYCLIA [id number] [address] [place] Eosinophils/100 WBC (Bld) 2.7 % Normal [facility] Comment on above: Order Comment: Speci men Type: BLOOD SPECIMENOrdering Facility: [facility] Address: [address] [place] [address] Performed By: #### 5 7021-8 ####[facility]ORATORYCLIA [id number] [address] [place] Erythrocyte distribution width (RBC) [Ratio] 16.6 % High 11.5-15.0 [facility] Comment on above: Order Comment: Speci men Type: BLOOD SPECIMENOrdering Facility: [facility] Address: [address] [place] [address] Performed By: #### 5 7021-8 ####[facility]ORATORYCLIA [id number] [address] [place] Hematocrit (Bld) [Volume fraction] 28.6 % Low 39.0-51.0 [facility] Comment on above: Order Comment: Speci men Type: BLOOD SPECIMENOrdering Facility: [facility] Address: [address] [place] [address] Performed By: #### 5 7021-8 ####[facility]ORATORYCLIA [id number] [address] [place] Hemoglobin (Bld) [Mass/Vol] 9.0 g/dL Low 13.0-17.0 [facility] Comment on above: Order Comment: Speci men Type: BLOOD SPECIMENOrdering Facility: [facility] Address: [address] [place] [address] Performed By: #### 5 7021-8 ####[facility]ORATORYCLIA [id number] [address] IMMATURE GRAN % 0.2 % Normal [facility] Comment on above: Order Comment: Speci men Type: BLOOD SPECIMENOrdering Facility: [facility] Address: [address] [place] [address] Performed By: #### 5 7021-8 ####[facility]ORATORYCLIA [id number] [address] IMMATURE GRAN ABS <0.03 Normal <0.10 [facility] Comment on above: Order Comment: Speci men Type: BLOOD SPECIMENOrdering Facility: [facility] Address: [address] [place] [address] Performed By: #### 5 7021-8 ####[facility]ORATORYCLIA [id number] [address] Lymphocytes (Bld) [#/Vol] 1.33 10*3/uL Normal 1.00-4.00 [facility] Comment on above: Order Comment: Speci men Type: BLOOD SPECIMENOrdering Facility: [facility] Address: [address] [place] [address] Performed By: #### 5 7021-8 ####[facility]ORATORYCLIA [id number] [address] Lymphocytes/100 WBC (Bld) 15.6 % Normal [facility] Comment on above: Order Comment: Speci men Type: BLOOD SPECIMENOrdering Facility: [facility] Address: [address] [place] [address] Performed By: #### 5 7021-8 ####[facility]ORATORYCLIA [id number] [address] STATES [facility] MCH (RBC) [Entitic mass] 29.0 pg Normal 26.0-34.0 [facility] Comment on above: Order Comment: Speci men Type: BLOOD SPECIMENOrdering Facility: [facility] Address: [address] [place] [address] Performed By: #### 5 7021-8 ####[facility]ORATORYCLIA [id number] [address] [place] MCHC (RBC) [Mass/Vol] 31.5 g/dL Normal 30.5-36.0 [facility] Comment on above: Order Comment: Speci men Type: BLOOD SPECIMENOrdering Facility: [facility] Address: [address] [place] [address] Performed By: #### 5 7021-8 ####[facility]ORATORYCLIA [id number] [address] MCV (RBC) [Entitic vol] 92.3 fL Normal 80.0-100.0 [facility] Comment on above: Order Comment: Speci men Type: BLOOD SPECIMENOrdering Facility: [facility] Address: [address] [place] [address] Performed By: #### 5 7021-8 ####[facility]ORATORYCLIA [id number] [address] [place] Monocytes (Bld) [#/Vol] 0.44 10*3/uL Normal <0.87 [facility] Comment on above: Order Comment: Speci men Type: BLOOD SPECIMENOrdering Facility: [facility] Address: [address] [place] [address] Performed By: #### 5 7021-8 ####[facility]ORATORYCLIA [id number] [address] Monocytes/100 WBC (Bld) 5.2 % Normal [facility] Comment on above: Order Comment: Speci men Type: BLOOD SPECIMENOrdering Facility: [facility] Address: [address] [place] [address] Performed By: #### 5 7021-8 ####[facility]ORATORYCLIA [id number] [address] [place] Neutrophils (Bld) [#/Vol] 6.46 10*3/uL Normal 1.45-7.50 [facility] Comment on above: Order Comment: Speci men Type: BLOOD SPECIMENOrdering Facility: [facility] Address: [address] [address] Performed By: #### 5 7021-8 ####[facility]ORATORYCLIA [id number] [address] Neutrophils/100 WBC (Bld) 76.1 % Normal [facility] Comment on above: Order Comment: Speci men Type: BLOOD SPECIMENOrdering Facility: [facility] Address: [address] [place] [address] Performed By: #### 5 7021-8 ####[facility]ORATORYCLIA [id number] [address] Nucleated RBC (Bld) [#/Vol] 10*3/uL Normal <0.01 [facility] Comment on above: Order Comment: Speci men Type: BLOOD SPECIMENOrdering Facility: [facility] Address: [address] [place] [address] Performed By: #### 5 7021-8 ####[facility]ORATORYCLIA [id number] [address] Nucleated RBC/100 WBC (Bld) [Ratio] 0.0 /100 WBC Normal [facility] Comment on above: Order Comment: Speci men Type: BLOOD SPECIMENOrdering Facility: [facility] Address: [address] [place] [address] Performed By: #### 5 7021-8 ####[facility]ORATORYCLIA [id number] [address] [place] Platelet mean volume (Bld) [Entitic vol] 9.5 fL Normal 9.0-12.7 [facility] Comment on above: Order Comment: Speci men Type: BLOOD SPECIMENOrdering Facility: [facility] Address: [address] [place] [address] Performed By: #### 5 7021-8 ####[facility]ORATORYCLIA [id number] [address] [place] Platelets (Bld) [#/Vol] 247 10*3/uL Normal 150-400 [facility] Comment on above: Order Comment: Speci men Type: BLOOD SPECIMENOrdering Facility: [facility] Address: [address] [place] [address] Performed By: #### 5 7021-8 ####[facility]ORATORYCLIA [id number] [place] [address] [place] [facility] RBC (Bld) [#/Vol] 3.10 10*6/uL Low 4.20-6.00 [facility] Comment on above: Order Comment: Speci men Type: BLOOD SPECIMENOrdering Facility: [facility] Address: [address] [place] [address] Performed By: #### 5 7021-8 ####[facility]ORATORYCLIA [id number] [address] [place] WBC (Bld) [#/Vol] 8.50 10*3/uL Normal 3.70-11.00 [facility] Comment on above: Order Comment: Speci men Type: BLOOD SPECIMENOrdering Facility: [facility] Address: [address] [place] [address] Performed By: #### 5 7021-8 ####[facility]ORATORYCLIA [id number] [address] [place] CONSULTon 08-14-2021 CONSULT Normal [facility] NURSING PROGon 08-14-2021 NURSING PROG Normal [facility] CBC W Auto Differential pane l (Bld)on 08-13-2021 Basophils (Bld) [#/Vol] 10*3/uL Normal <0.11 [facility] Comment on above: Order Comment: Speci men Type: BLOOD SPECIMENOrdering Facility: [facility] Address: [address] [place] [address] Performed By: #### 5 7021-8 ####[facility]ORATORYCLIA [id number] [address] [place] Basophils/100 WBC (Bld) 0.2 % Normal [facility] Comment on above: Order Comment: Speci men Type: BLOOD SPECIMENOrdering Facility: [facility] Address: [address] [place] [address] Performed By: #### 5 7021-8 ####[facility]ATORYCLIA [id number] [address] Differential cell count method Nom (Bld) Auto Normal [facility] Comment on above: Order Comment: Speci men Type: BLOOD SPECIMENOrdering Facility: [facility] Address: [address] [place] [address] Performed By: #### 5 7021-8 ####[facility]ATORYCLIA [id number] [address] Eosinophils (Bld) [#/Vol] 0.31 10*3/uL Normal <0.46 [facility] Comment on above: Order Comment: Speci men Type: BLOOD SPECIMENOrdering Facility: [facility] Address: [address] [place] [address] Performed By: #### 5 7021-8 ####[facility]ATORYCLIA [id number] [address] Eosinophils/100 WBC (Bld) 3.7 % Normal [facility] Comment on above: Order Comment: Speci men Type: BLOOD SPECIMENOrdering Facility: [facility] Address: [address] [place] [address] Performed By: #### 5 7021-8 ####[facility]ORATORYCLIA [id number] [address] Erythrocyte distribution width (RBC) [Ratio] 16.6 % High 11.5-15.0 [facility] Comment on above: Order Comment: Speci men Type: BLOOD SPECIMENOrdering Facility: [facility] Address: [address] [place] [address] Performed By: #### 5 7021-8 ####[facility]ORATORYCLIA [id number] [address] [place] Hematocrit (Bld) [Volume fraction] 27.5 % Low 39.0-51.0 [facility] Comment on above: Order Comment: Speci men Type: BLOOD SPECIMENOrdering Facility: [facility] Address: [address] [place] [address] Performed By: #### 5 7021-8 ####[facility]ORATORYCLIA [id number] [address] Hemoglobin (Bld) [Mass/Vol] 8.4 g/dL Low 13.0-17.0 [facility] Comment on above: Order Comment: Speci men Type: BLOOD SPECIMENOrdering Facility: [facility] Address: [address] [place] [address] Performed By: #### 5 7021-8 ####[facility]ORATORYCLIA [id number] [address] IMMATURE GRAN % 0.5 % Normal [facility] Comment on above: Order Comment: Speci men Type: BLOOD SPECIMENOrdering Facility: [facility] Address: [address] [place] [address] Performed By: #### 5 7021-8 ####[facility]ORATORYCLIA [id number] [address] IMMATURE GRAN ABS 0.04 k/uL Normal <0.10 [facility] Comment on above: Order Comment: Speci men Type: BLOOD SPECIMENOrdering Facility: [facility] Address: [address] [place] [address] Performed By: #### 5 7021-8 ####[facility]ORATORYCLIA [id number] [address] Lymphocytes (Bld) [#/Vol] 1.55 10*3/uL Normal 1.00-4.00 [facility] Comment on above: Order Comment: Speci men Type: BLOOD SPECIMENOrdering Facility: [facility] Address: [address] [place] [address] Performed By: #### 5 7021-8 ####[facility]ORATORYCLIA [id number] [address] Lymphocytes/100 WBC (Bld) 18.7 % Normal [facility] Comment on above: Order Comment: Speci men Type: BLOOD SPECIMENOrdering Facility: [facility] Address: [address] [place] [address] Performed By: #### 5 7021-8 ####[facility]ORATORYCLIA [id number] [address] MCH (RBC) [Entitic mass] 28.9 pg Normal 26.0-34.0 [facility] Comment on above: Order Comment: Speci men Type: BLOOD SPECIMENOrdering Facility: [facility] Address: [address] [place] [address] Performed By: #### 5 7021-8 ####[facility]ORATORYCLIA [id number] [address] MCHC (RBC) [Mass/Vol] 30.5 g/dL Normal 30.5-36.0 [facility] Comment on above: Order Comment: Speci men Type: BLOOD SPECIMENOrdering Facility: [facility] Address: [address] [place] [address] Performed By: #### 5 7021-8 ####[facility]ORATORYCLIA [id number] [address] MCV (RBC) [Entitic vol] 94.5 fL Normal 80.0-100.0 [facility] Comment on above: Order Comment: Speci men Type: BLOOD SPECIMENOrdering Facility: [facility] Address: [address] [place] [address] Performed By: #### 5 7021-8 ####[facility]ATORYCLIA [id number] [address] Monocytes (Bld) [#/Vol] 0.47 10*3/uL Normal <0.87 [facility] Comment on above: Order Comment: Speci men Type: BLOOD SPECIMENOrdering Facility: [facility] Address: [address] [place] [address] Performed By: #### 5 7021-8 ####[facility]ATORYCLIA [id number] [address] Monocytes/100 WBC (Bld) 5.7 % Normal [facility] Comment on above: Order Comment: Speci men Type: BLOOD SPECIMENOrdering Facility: [facility] Address: [address] [place] [address] Performed By: #### 5 7021-8 ####[facility]ATORYCLIA [id number] [address] [place] Neutrophils (Bld) [#/Vol] 5.92 10*3/uL Normal 1.45-7.50 [facility] Comment on above: Order Comment: Speci men Type: BLOOD SPECIMENOrdering Facility: [facility] Address: [address] [place] [address] Performed By: #### 5 7021-8 ####[facility]ORYCLIA [id number] [address] Neutrophils/100 WBC (Bld) 71.2 % Normal [facility] Comment on above: Order Comment: Speci men Type: BLOOD SPECIMENOrdering Facility: [facility] Address: [address] [place] [address] Performed By: #### 5 7021-8 ####[facility]ATORYCLIA [id number] [address] [place] Nucleated RBC (Bld) [#/Vol] 10*3/uL Normal <0.01 [facility] Comment on above: Order Comment: Speci men Type: BLOOD SPECIMENOrdering Facility: [facility] Address: [address] [place] [address] Performed By: #### 5 7021-8 ####[facility]ORATORYCLIA [id number] [address] [place] Nucleated RBC/100 WBC (Bld) [Ratio] 0.0 /100 WBC Normal [facility] Comment on above: Order Comment: Speci men Type: BLOOD SPECIMENOrdering Facility: [facility] Address: [address] [place] [address] Performed By: #### 5 7021-8 ####[facility] LABORATORYCLIA [id number] [address] [place] Platelet mean volume (Bld) [Entitic vol] 9.9 fL Normal 9.0-12.7 [facility] Comment on above: Order Comment: Speci men Type: BLOOD SPECIMENOrdering Facility: [facility] Address: [address] [place], [place] [address] Performed By: #### 5 7021-8 ####[facility] LABORATORYCLIA [id number] [address] [place] Platelets (Bld) [#/Vol] 203 10*3/uL Normal 150-400 [facility] Comment on above: Order Comment: Speci men Type: BLOOD SPECIMENOrdering Facility: [facility] Address: [address] [place] [address] Performed By: #### 5 7021-8 ####[facility] LABORATORYCLIA [id number] [address] [place] RBC (Bld) [#/Vol] 2.91 10*6/uL Low 4.20-6.00 [facility] Comment on above: Order Comment: Speci men Type: BLOOD SPECIMENOrdering Facility: [facility] Address: [address] [place], [place] [id number] Performed By: #### 5 7021-8 ####[facility]ORATORYCLIA [id number] [address] [place] WBC (Bld) [#/Vol] 8.31 10*3/uL Normal 3.70-11.00 [facility] Comment on above: Order Comment: Speci men Type: BLOOD SPECIMENOrdering Facility: [facility] Address: [address] [place] [address] Performed By: #### 5 7021-8 ####[facility]ORATORYCLIA [id number] [address] OF [facility] aPTT PPPon 08-13-2021 aPTT Coag (PPP) [Time] 69.7 s High 23.0-32.4 [facility] Comment on above: Order Comment: Speci men Type: BLOOD SPECIMENOrdering Facility: [facility] Address: [address] [place], [place] [id number] Performed By: #### 1 4979-9 ####[facility]ORATORYCLIA [id number] [address] STATES OF [facility] aPTT Coag (PPP) [Time] 70.6 s High 23.0-32.4 [facility] Comment on above: Order Comment: Speci men Type: BLOOD SPECIMENOrdering Facility: [facility] Address: [address] [place], [place] [id number] Performed By: #### 1 4979-9 ####[facility]ORATORYCLIA [id number] [address] [place] ALLIED HEALTHon 08-12-2021 ALLIED HEALTH Normal [facility] ALLIED HEALTH Normal [facility] Basic metabolic 2000 panelon 08-12-2021 Anion gap [Moles/Vol] 7 mmol/L Low 9-18 [facility] Comment on above: Order Comment: Speci men Type: BLOOD SPECIMENOrdering Facility: [facility] Address: [address] [place], [place] [address] Performed By: #### 2 4321-2, , 2776-05 ####[facility]ORATORYCLIA [id number] [address] STATES OF [facility] Calcium [Mass/Vol] 8.8 mg/dL Normal 8.5-10.2 [facility] Comment on above: Order Comment: Speci men Type: BLOOD SPECIMENOrdering Facility: [facility] Address: [address] [place], [place] [id number] Performed By: #### 2 4321-2, , 2776-05 ####[facility]ORATORYCLIA [id number] [place] [address] [place] Chloride [Moles/Vol] 96 mmol/L Low 97-105 [facility] Comment on above: Order Comment: Speci men Type: BLOOD SPECIMENOrdering Facility: [facility] Address: [address] [place] [address] Performed By: #### 2 4321-2, , 2776-05 ####[facility]ORATORYCLIA [id number] [address] STATES OF [facility] CO2 [Moles/Vol] 32 mmol/L High 22-30 [facility] Comment on above: Order Comment: Speci men Type: BLOOD SPECIMENOrdering Facility: [facility] Address: [address] [place] [address] Performed By: #### 2 4321-2, , 2776-05 ####[facility]ORATORYCLIA [id number] [address] Creatinine [Mass/Vol] 0.52 mg/dL Low 0.73-1.22 [facility] Comment on above: Order Comment: Speci men Type: BLOOD SPECIMENOrdering Facility: [facility] Address: [address] [place] [address] Performed By: #### 2 4321-2, , 2776-05 ####[facility]ORATORYCLIA [id number] [address] ESTIMATED GLOMERULAR FILTRATION RATE 109 mL/min/1.73m??? Normal >=60 [facility] Comment on above: Order Comment: Speci men Type: BLOOD SPECIMENOrdering Facility: [facility] Address: [address] [place] [address] Result Comment: Luzmaria mated Glomerular Filtration Rate [...] #### 2 4321-2, , 2776-05 ####[facility]ORATORYCLIA [id number] [place] [address] [place] Glucose [Mass/Vol] 119 mg/dL High 74-99 [facility] Comment on above: Order Comment: Shira feldman Type: BLOOD SPECIMENOrdering Facility: [facility] Address: [address] [place], [place] [address] Result Comment: The [place] [employer] (ADA) provides guidance for cutoff [...] Standards of Medical Care in Diabetes 2016, [place] [employer]. Diabetes Care. 2016.39(Suppl 1). Performed By: #### 2 4321-2, , 2776-05 ####[facility]ORATORYCLIA [id number] [place] [address] [place] Potassium [Moles/Vol] 3.7 mmol/L Normal 3.7-5.1 [facility] Comment on above: Order Comment: Shira feldman Type: BLOOD SPECIMENOrdering Facility: [facility] Address: [address] [place] [address] Performed By: #### 2 4321-2, , 2776-05 ####[facility]ORATORYCLIA [id number] [place] [address] [place] Sodium [Moles/Vol] 135 mmol/L Low 136-144 [facility] Comment on above: Order Comment: Shira feldman Type: BLOOD SPECIMENOrdering Facility: [facility] Address: [address] [place] [address] Performed By: #### 2 4321-2, 90292-4, 2771 ####[facility]ORATORYCLIA [id number] [address] STATES [facility] Urea nitrogen [Mass/Vol] 20 mg/dL Normal 9-24 [facility] Comment on above: Order Comment: Speci men Type: BLOOD SPECIMENOrdering Facility: [facility] Address: [address] [place] [address] Performed By: #### 2 4321-2, , 27711-04 ####[facility]ORATORYCLIA [id number] [address] CASE MANAGEMon 08-12-2021 CASE MANAGEM Normal [facility] CBC W Auto Differential pane l (Bld)on 08-12-2021 Basophils (Bld) [#/Vol] 0.04 10*3/uL Normal <0.11 [facility] Comment on above: Order Comment: Speci men Type: BLOOD SPECIMENOrdering Facility: [facility] Address: [address] [place] [address] Performed By: #### 5 7021-8 ####[facility]ORATORYCLIA [id number] [address] [place] Basophils/100 WBC (Bld) 0.5 % Normal [facility] Comment on above: Order Comment: Speci men Type: BLOOD SPECIMENOrdering Facility: [facility] Address: [address] [place] [address] Performed By: #### 5 7021-8 ####[facility]ORATORYCLIA [id number] [address] STATES [facility] Differential cell count method Nom (Bld) Auto Normal [facility] Comment on above: Order Comment: Speci men Type: BLOOD SPECIMENOrdering Facility: [facility] Address: [address] [place] [address] Performed By: #### 5 7021-8 ####[facility]ORATORYCLIA [id number] [address] [place] Eosinophils (Bld) [#/Vol] 0.19 10*3/uL Normal <0.46 [facility] Comment on above: Order Comment: Speci men Type: BLOOD SPECIMENOrdering Facility: [facility] Address: [address] [place] [address] Performed By: #### 5 7021-8 ####[facility]ORATORYCLIA [id number] [address] [place] Eosinophils/100 WBC (Bld) 2.3 % Normal [facility] Comment on above: Order Comment: Speci men Type: BLOOD SPECIMENOrdering Facility: [facility] Address: [address] [place] [address] Performed By: #### 5 7021-8 ####[facility]ORATORYCLIA [id number] [address] STATES [facility] Erythrocyte distribution width (RBC) [Ratio] 17.1 % High 11.5-15.0 [facility] Comment on above: Order Comment: Speci men Type: BLOOD SPECIMENOrdering Facility: [facility] Address: [address] [place] [address] Performed By: #### 5 7021-8 ####[facility]ORATORYCLIA [id number] [address] [place] Hematocrit (Bld) [Volume fraction] 25.3 % Low 39.0-51.0 [facility] Comment on above: Order Comment: Speci men Type: BLOOD SPECIMENOrdering Facility: [facility] Address: [address] [place] [address] Performed By: #### 5 7021-8 ####[facility]ORATORYCLIA [id number] [address] [place] Hemoglobin (Bld) [Mass/Vol] 7.9 g/dL Low 13.0-17.0 [facility] Comment on above: Order Comment: Speci men Type: BLOOD SPECIMENOrdering Facility: [facility] Address: [address] [place] [address] Performed By: #### 5 7021-8 ####[facility]ORATORYCLIA [id number] [address] IMMATURE GRAN % 0.5 % Normal [facility] Comment on above: Order Comment: Speci men Type: BLOOD SPECIMENOrdering Facility: [facility] Address: [address] [place] [address] Performed By: #### 5 7021-8 ####[facility]ORATORYCLIA [id number] [address] IMMATURE GRAN ABS 0.04 k/uL Normal <0.10 [facility] Comment on above: Order Comment: Speci men Type: BLOOD SPECIMENOrdering Facility: [facility] Address: [address] [place] [address] Performed By: #### 5 7021-8 ####[facility]ORATORYCLIA [id number] [address] Lymphocytes (Bld) [#/Vol] 1.69 10*3/uL Normal 1.00-4.00 [facility] Comment on above: Order Comment: Speci men Type: BLOOD SPECIMENOrdering Facility: [facility] Address: [address] [place] [address] Performed By: #### 5 7021-8 ####[facility]ORATORYCLIA [id number] [address] Lymphocytes/100 WBC (Bld) 20.1 % Normal [facility] Comment on above: Order Comment: Speci men Type: BLOOD SPECIMENOrdering Facility: [facility] Address: [address] [place] [address] Performed By: #### 5 7021-8 ####[facility]ORATORYCLIA [id number] [address] [place] MCH (RBC) [Entitic mass] 28.5 pg Normal 26.0-34.0 [facility] Comment on above: Order Comment: Speci men Type: BLOOD SPECIMENOrdering Facility: [facility] Address: [address] [place] [address] Performed By: #### 5 7021-8 ####[facility]ORATORYCLIA [id number] [address] [place] MCHC (RBC) [Mass/Vol] 31.2 g/dL Normal 30.5-36.0 [facility] Comment on above: Order Comment: Speci men Type: BLOOD SPECIMENOrdering Facility: [facility] Address: [address] [place] [address] Performed By: #### 5 7021-8 ####[facility]ORATORYCLIA [id number] [address] [place] MCV (RBC) [Entitic vol] 91.3 fL Normal 80.0-100.0 [facility] Comment on above: Order Comment: Speci men Type: BLOOD SPECIMENOrdering Facility: [facility] Address: [address] [place] [address] Performed By: #### 5 7021-8 ####[facility]ORATORYCLIA [id number] [address] [place] Monocytes (Bld) [#/Vol] 0.53 10*3/uL Normal <0.87 [facility] Comment on above: Order Comment: Speci men Type: BLOOD SPECIMENOrdering Facility: [facility] Address: [address] [place] [address] Performed By: #### 5 7021-8 ####[facility]ORATORYCLIA [id number] [address] Monocytes/100 WBC (Bld) 6.3 % Normal [facility] Comment on above: Order Comment: Speci men Type: BLOOD SPECIMENOrdering Facility: [facility] Address: [address] [place] [address] Performed By: #### 5 7021-8 ####[facility] LABORATORYCLIA [id number] [address] [place] Neutrophils (Bld) [#/Vol] 5.90 10*3/uL Normal 1.45-7.50 [facility] Comment on above: Order Comment: Speci men Type: BLOOD SPECIMENOrdering Facility: [facility] Address: [address] [place] [address] Performed By: #### 5 7021-8 ####[facility]ORATORYCLIA [id number] [address] [place] Neutrophils/100 WBC (Bld) 70.3 % Normal [facility] Comment on above: Order Comment: Speci men Type: BLOOD SPECIMENOrdering Facility: [facility] Address: [address] [place] [address] Performed By: #### 5 7021-8 ####[facility]ORATORYCLIA [id number] [address] [place] Nucleated RBC (Bld) [#/Vol] 10*3/uL Normal <0.01 [facility] Comment on above: Order Comment: Speci men Type: BLOOD SPECIMENOrdering Facility: [facility] Address: [address] [place] [address] Performed By: #### 5 7021-8 ####[facility]ORATORYCLIA [id number] [address] [place] Nucleated RBC/100 WBC (Bld) [Ratio] 0.0 /100 WBC Normal [facility] Comment on above: Order Comment: Speci men Type: BLOOD SPECIMENOrdering Facility: [facility] Address: [address] [place] [address] Performed By: #### 5 7021-8 ####[facility]ORATORYCLIA [id number] [address] [place] Platelet mean volume (Bld) [Entitic vol] 9.8 fL Normal 9.0-12.7 [facility] Comment on above: Order Comment: Speci men Type: BLOOD SPECIMENOrdering Facility: [facility] Address: [address] [place] [address] Performed By: #### 5 7021-8 ####[facility]ORATORYCLIA [id number] [address] Platelets (Bld) [#/Vol] 164 10*3/uL Normal 150-400 [facility] Comment on above: Order Comment: Speci men Type: BLOOD SPECIMENOrdering Facility: [facility] Address: [address] [place] [address] Performed By: #### 5 7021-8 ####[facility]ORATORYCLIA [id number] [address] [place] RBC (Bld) [#/Vol] 2.77 10*6/uL Low 4.20-6.00 [facility] Comment on above: Order Comment: Speci men Type: BLOOD SPECIMENOrdering Facility: [facility] Address: [address] [place] [address] Performed By: #### 5 7021-8 ####[facility]ORATORYCLIA [id number] [address] WBC (Bld) [#/Vol] 8.39 10*3/uL Normal 3.70-11.00 [facility] Comment on above: Order Comment: Speci men Type: BLOOD SPECIMENOrdering Facility: [facility] Address: [address] [place] [address] Performed By: #### 5 7021-8 ####[facility]ORATORYCLIA [id number] [address] BRAIN WO IVCONon 08-13-19 CT BRAIN WO IVCON Normal [facility] CT BRAIN WO IVCON Normal [facility] Magnesium SerPl-mCncon 08-12 Magnesium [Mass/Vol] 2.0 mg/dL Normal 1.7-2.3 [facility] Comment on above: Order Comment: Speci men Type: BLOOD SPECIMENOrdering Facility: [facility] Address: [address] [place] [address] Performed By: #### 2 4321-2, 87735-2, 2777-1 ####[facility]ORATORYCLIA [id number] [address] Phosphate SerPl-mCncon 08-12 Phosphate [Mass/Vol] 2.9 mg/dL Normal 2.7-4.8 [facility] Comment on above: Order Comment: Speci men Type: BLOOD SPECIMENOrdering Facility: [facility] Address: [address] [place] [address] Performed By: #### 2 4321-2, 66173-0, 2777-1 ####[facility]ORATORYCLIA [id number] [address] THERAPY NTon 08-12-2021 THERAPY NT Normal [facility] THERAPY NT Normal [facility] aPTT PPPon 08-12-2021 aPTT Coag (PPP) [Time] 94.2 s High 23.0-32.4 [facility] Comment on above: Order Comment: Speci men Type: BLOOD SPECIMENOrdering Facility: [facility] Address: [address] [place] [address] Performed By: #### 1 4979-9 ####[facility]ORATORYCLIA [id number] [address] aPTT Coag (PPP) [Time] 84.4 s High 23.0-32.4 [facility] Comment on above: Order Comment: Speci men Type: BLOOD SPECIMENOrdering Facility: [facility] Address: [address] [place] [address] Performed By: #### 1 4979-9 ####[facility]ORATORYCLIA [id number] [address] aPTT Coag (PPP) [Time] 71.3 s High 23.0-32.4 [facility] Comment on above: Order Comment: Speci men Type: BLOOD SPECIMENOrdering Facility: [facility] Address: [address] [place] [address] Performed By: #### 1 4979-9 ####[facility]ORATORYCLIA [id number] [address] [place] ALLIED HEALTHon 08-11-2021 ALLIED HEALTH Normal [facility] CBC W Auto Differential pane l (Bld)on 08-11-2021 Basophils (Bld) [#/Vol] 10*3/uL Normal <0.11 [facility] Comment on above: Order Comment: Speci men Type: BLOOD SPECIMENOrdering Facility: [facility] Address: [address] [place] [address] Performed By: #### 5 7021-8 ####[facility]ORATORYCLIA [id number] [address] Basophils/100 WBC (Bld) 0.2 % Normal [facility] Comment on above: Order Comment: Speci men Type: BLOOD SPECIMENOrdering Facility: [facility] Address: [address] [place] [address] Performed By: #### 5 7021-8 ####[facility]ORATORYCLIA [id number] [address] Differential cell count method Nom (Bld) Auto Normal [facility] Comment on above: Order Comment: Speci men Type: BLOOD SPECIMENOrdering Facility: [facility] Address: [address] [place] [address] Performed By: #### 5 7021-8 ####[facility]ORATORYCLIA [id number] [address] [place] Eosinophils (Bld) [#/Vol] 0.16 10*3/uL Normal <0.46 [facility] Comment on above: Order Comment: Speci men Type: BLOOD SPECIMENOrdering Facility: [facility] Address: [address] [place] [address] Performed By: #### 5 7021-8 ####[facility]ORATORYCLIA [id number] [address] [place] Eosinophils/100 WBC (Bld) 1.8 % Normal [facility] Comment on above: Order Comment: Speci men Type: BLOOD SPECIMENOrdering Facility: [facility] Address: [address] [place] [address] Performed By: #### 5 7021-8 ####[facility]ORATORYCLIA [id number] [address] Erythrocyte distribution width (RBC) [Ratio] 17.3 % High 11.5-15.0 [facility] Comment on above: Order Comment: Speci men Type: BLOOD SPECIMENOrdering Facility: [facility] Address: [address] [place] [address] Performed By: #### 5 7021-8 ####[facility]ORATORYCLIA [id number] [address] Hematocrit (Bld) [Volume fraction] 26.6 % Low 39.0-51.0 [facility] Comment on above: Order Comment: Speci men Type: BLOOD SPECIMENOrdering Facility: [facility] Address: [address] [place] [address] Performed By: #### 5 7021-8 ####[facility]ORATORYCLIA [id number] [address] Hemoglobin (Bld) [Mass/Vol] 8.2 g/dL Low 13.0-17.0 [facility] Comment on above: Order Comment: Speci men Type: BLOOD SPECIMENOrdering Facility: [facility] Address: [address] [place] [address] Performed By: #### 5 7021-8 ####[facility]ORATORYCLIA [id number] [address] IMMATURE GRAN % 0.6 % Normal [facility] Comment on above: Order Comment: Speci men Type: BLOOD SPECIMENOrdering Facility: [facility] Address: [address] [place] [address] Performed By: #### 5 7021-8 ####[facility]ORATORYCLIA [id number] [address] IMMATURE GRAN ABS 0.05 k/uL Normal <0.10 [facility] Comment on above: Order Comment: Speci men Type: BLOOD SPECIMENOrdering Facility: [facility] Address: [address] [place] [address] Performed By: #### 5 7021-8 ####[facility]ORATORYCLIA [id number] [address] [place] Lymphocytes (Bld) [#/Vol] 1.40 10*3/uL Normal 1.00-4.00 [facility] Comment on above: Order Comment: Speci men Type: BLOOD SPECIMENOrdering Facility: [facility] Address: [address] [place] [address] Performed By: #### 5 7021-8 ####[facility]ORATORYCLIA [id number] [address] Lymphocytes/100 WBC (Bld) 15.8 % Normal [facility] Comment on above: Order Comment: Speci men Type: BLOOD SPECIMENOrdering Facility: [facility] Address: [address] [place] [address] Performed By: #### 5 7021-8 ####[facility]ORATORYCLIA [id number] [address] MCH (RBC) [Entitic mass] 28.4 pg Normal 26.0-34.0 [facility] Comment on above: Order Comment: Speci men Type: BLOOD SPECIMENOrdering Facility: [facility] Address: [address] [place] [address] Performed By: #### 5 7021-8 ####[facility]ORATORYCLIA [id number] [address] MCHC (RBC) [Mass/Vol] 30.8 g/dL Normal 30.5-36.0 [facility] Comment on above: Order Comment: Speci men Type: BLOOD SPECIMENOrdering Facility: [facility] Address: [address] [address] Performed By: #### 5 7021-8 ####[facility]ORATORYCLIA [id number] [address] [place] MCV (RBC) [Entitic vol] 92.0 fL Normal 80.0-100.0 [facility] Comment on above: Order Comment: Speci men Type: BLOOD SPECIMENOrdering Facility: [facility] Address: [address] [place] [address] Performed By: #### 5 7021-8 ####[facility] LABORATORYCLIA [id number] [address] [place] Monocytes (Bld) [#/Vol] 0.61 10*3/uL Normal <0.87 [facility] Comment on above: Order Comment: Speci men Type: BLOOD SPECIMENOrdering Facility: [facility] Address: [address] [place] [address] Performed By: #### 5 7021-8 ####[facility] LABORATORYCLIA [id number] [address] [place] [facility] Monocytes/100 WBC (Bld) 6.9 % Normal [facility] Comment on above: Order Comment: Speci men Type: BLOOD SPECIMENOrdering Facility: [facility] Address: [address] [place] [address] Performed By: #### 5 7021-8 ####[facility]ORATORYCLIA [id number] [address] [place] Neutrophils (Bld) [#/Vol] 6.62 10*3/uL Normal 1.45-7.50 [facility] Comment on above: Order Comment: Speci men Type: BLOOD SPECIMENOrdering Facility: [facility] Address: [address] [place] [address] Performed By: #### 5 7021-8 ####[facility] LABORATORYCLIA [id number] [address] [place] Neutrophils/100 WBC (Bld) 74.7 % Normal [facility] Comment on above: Order Comment: Speci men Type: BLOOD SPECIMENOrdering Facility: [facility] Address: [address] [address] Performed By: #### 5 7021-8 ####[facility]ORATORYCLIA [id number] [address] [place] Nucleated RBC (Bld) [#/Vol] 10*3/uL Normal <0.01 [facility] Comment on above: Order Comment: Speci men Type: BLOOD SPECIMENOrdering Facility: [facility] Address: [address] [place] [address] Performed By: #### 5 7021-8 ####[facility]ORATORYCLIA [id number] [address] [place] Nucleated RBC/100 WBC (Bld) [Ratio] 0.0 /100 WBC Normal [facility] Comment on above: Order Comment: Speci men Type: BLOOD SPECIMENOrdering Facility: [facility] Address: [address] [place] [address] Performed By: #### 5 7021-8 ####[facility]ORATORYCLIA [id number] [address] [place] Platelet mean volume (Bld) [Entitic vol] 9.8 fL Normal 9.0-12.7 [facility] Comment on above: Order Comment: Speci men Type: BLOOD SPECIMENOrdering Facility: [facility] Address: [address] [place] [id number] Performed By: #### 5 7021-8 ####[facility]ORATORYCLIA [id number] [address] [place] Platelets (Bld) [#/Vol] 157 10*3/uL Normal 150-400 [facility] Comment on above: Order Comment: Speci men Type: BLOOD SPECIMENOrdering Facility: [facility] Address: [address] [place] [address] Performed By: #### 5 7021-8 ####[facility]ORATORYCLIA [id number] [address] OF [facility] RBC (Bld) [#/Vol] 2.89 10*6/uL Low 4.20-6.00 [facility] Comment on above: Order Comment: Speci men Type: BLOOD SPECIMENOrdering Facility: [facility] Address: [address] [place] [address] Performed By: #### 5 7021-8 ####[facility]ORATORYCLIA [id number] [address] OF [facility] WBC (Bld) [#/Vol] 8.86 10*3/uL Normal 3.70-11.00 [facility] Comment on above: Order Comment: Speci men Type: BLOOD SPECIMENOrdering Facility: [facility] Address: [address] [place] [address] Performed By: #### 5 7021-8 ####[facility]ORATORYCLIA [id number] [address] CBC panel Auto (Bld)on 08-11 Erythrocyte distribution width (RBC) [Ratio] 17.2 % High 11.5-15.0 [facility] Comment on above: Order Comment: Speci men Type: BLOOD SPECIMENOrdering Facility: [facility] Address: [address] [place] [address] Performed By: #### 5 8410-2 ####[facility]ORATORYCLIA [id number] [address] Hematocrit (Bld) [Volume fraction] 27.0 % Low 39.0-51.0 [facility] Comment on above: Order Comment: Speci men Type: BLOOD SPECIMENOrdering Facility: [facility] Address: [address] [place] [address] Performed By: #### 5 8410-2 ####[facility]ORATORYCLIA [id number] [address] OF [facility] Hemoglobin (Bld) [Mass/Vol] 8.3 g/dL Low 13.0-17.0 [facility] Comment on above: Order Comment: Speci men Type: BLOOD SPECIMENOrdering Facility: [facility] Address: [address] [place] [address] Performed By: #### 5 8410-2 ####[facility]ATORYCLIA [id number] [address] MCH (RBC) [Entitic mass] 28.7 pg Normal 26.0-34.0 [facility] Comment on above: Order Comment: Speci men Type: BLOOD SPECIMENOrdering Facility: [facility] Address: [address] [place] [address] Performed By: #### 5 8410-2 ####[facility]ORATORYCLIA [id number] [address] MCHC (RBC) [Mass/Vol] 30.7 g/dL Normal 30.5-36.0 [facility] Comment on above: Order Comment: Speci men Type: BLOOD SPECIMENOrdering Facility: [facility] Address: [address] [place] [address] Performed By: #### 5 8410-2 ####[facility]ORATORYCLIA [id number] [address] MCV (RBC) [Entitic vol] 93.4 fL Normal 80.0-100.0 [facility] Comment on above: Order Comment: Speci men Type: BLOOD SPECIMENOrdering Facility: [facility] Address: [address] [place] [address] Performed By: #### 5 8410-2 ####[facility]ORATORYCLIA [id number] [address] Nucleated RBC (Bld) [#/Vol] 10*3/uL Normal <0.01 [facility] Comment on above: Order Comment: Speci men Type: BLOOD SPECIMENOrdering Facility: [facility] Address: [address] [place] [address] Performed By: #### 5 8410-2 ####[facility]ORATORYCLIA [id number] [address] Platelet mean volume (Bld) [Entitic vol] 9.8 fL Normal 9.0-12.7 [facility] Comment on above: Order Comment: Speci men Type: BLOOD SPECIMENOrdering Facility: [facility] Address: [address] [place] [address] Performed By: #### 5 8410-2 ####[facility]ORATORYCLIA [id number] [address] [place] Platelets (Bld) [#/Vol] 169 10*3/uL Normal 150-400 [facility] Comment on above: Order Comment: Speci men Type: BLOOD SPECIMENOrdering Facility: [facility] Address: [address] [place] [address] Performed By: #### 5 8410-2 ####[facility]ORATORYCLIA [id number] [address] STATES OF [facility] RBC (Bld) [#/Vol] 2.89 10*6/uL Low 4.20-6.00 [facility] Comment on above: Order Comment: Speci men Type: BLOOD SPECIMENOrdering Facility: [facility] Address: [address] [place] [address] Performed By: #### 5 8410-2 ####[facility]ORATORYCLIA [id number] [address] [place] WBC (Bld) [#/Vol] 9.03 10*3/uL Normal 3.70-11.00 [facility] Comment on above: Order Comment: Speci men Type: BLOOD SPECIMENOrdering Facility: [facility] Address: [address] [place] [address] Performed By: #### 5 8410-2 ####[facility]ORATORYCLIA [id number] [address] OF [facility] CT BRAIN WO IVCONon 08-12-19 CT BRAIN WO IVCON Normal [facility] PT panel Coag (PPP)on 2021 INR Coag (PPP) [Relative time] 1.0 {INR} Normal 0.9-1.3 [facility] Comment on above: Order Comment: Shira feldman Type: BLOOD SPECIMENOrdering Facility: [facility] Address: [address] [id number] Result Comment: Yris min K Antagonist (VKA) Therapeutic Range: INR 2 to 3 (Target INR of 2.5)Note: For patients treated with VKA drugs, such as warfarin, the [place] [employer] 2012 Guideline recommends [...] al. Chest 2012, 141:7S-47SNishimpatricia RA, et al. [facility] 2017, 70: 252-289 Performed By: #### 1 4979-9, 98142-6 ####[facility]ORATORYCLIA [id number] [place] [address] [place] PT Coag (PPP) [Time] 11.4 s Normal 9.7-13.0 [facility] Comment on above: Order Comment: Shira feldman Type: BLOOD SPECIMENOrdering Facility: [facility] Address: [address] [place] [address] Performed By: #### 1 4979-9, 05905-1 ####[facility]ORATORYCLIA [id number] [place] [address] [place] THERAPY NTon 08-11-2021 THERAPY NT Normal [facility] US DVT LOWER BILon 2 US DVT LOWER RAINER Normal [facility] US DVT UPPER BILon 2 US DVT UPPER RAINER Normal [facility] aPTT PPPon 08-11-2021 aPTT Coag (PPP) [Time] 26.9 s Normal 23.0-32.4 [facility] Comment on above: Order Comment: Speci men Type: BLOOD SPECIMENOrdering Facility: [facility] Address: [address] [place] [address] Performed By: #### 1 4979-9, 60004-2 ####[facility]ORATORYCLIA [id number] [place] [address] [place] Basic metabolic 2000 panelon 08-10-2021 Anion gap [Moles/Vol] 11 mmol/L Normal 9-18 [facility] Comment on above: Order Comment: Speci men Type: BLOOD SPECIMENOrdering Facility: [facility] Address: [address] [place] [address] Performed By: #### 2 4321-2 ####[facility]ORATORYCLIA [id number] [place] [address] [place] Calcium [Mass/Vol] 8.7 mg/dL Normal 8.5-10.2 [facility] Comment on above: Order Comment: Speci men Type: BLOOD SPECIMENOrdering Facility: [facility] Address: [address] [place] [address] Performed By: #### 2 4321-2 ####[facility]ORATORYCLIA [id number] [place] [address] [place] Chloride [Moles/Vol] 98 mmol/L Normal 97-105 [facility] Comment on above: Order Comment: Speci men Type: BLOOD SPECIMENOrdering Facility: [facility] Address: [address] [place] [address] Performed By: #### 2 4321-2 ####[facility]ORATORYCLIA [id number] [place] [address] [place] CO2 [Moles/Vol] 28 mmol/L Normal 22-30 [facility] Comment on above: Order Comment: Speci men Type: BLOOD SPECIMENOrdering Facility: [facility] Address: [address] [place] [address] Performed By: #### 2 4321-2 ####[facility]ORATORYCLIA [id number] [address] STATES OF [facility] Creatinine [Mass/Vol] 0.59 mg/dL Low 0.73-1.22 [facility] Comment on above: Order Comment: Shira feldman Type: BLOOD SPECIMENOrdering Facility: [facility] Address: [address] [place] [address] Performed By: #### 2 4321-2 ####[facility]ORATORYCLIA [id number] [address] ESTIMATED GLOMERULAR FILTRATION RATE 105 mL/min/1.73m??? Normal >=60 [facility] Comment on above: Order Comment: Shira feldman Type: BLOOD SPECIMENOrdering Facility: [facility] Address: [address] [place] [address] Result Comment: Luzmaria mated Glomerular Filtration Rate [...] Performed By: #### 2 4321-2 ####[facility]ORATORYCLIA [id number] [address] STATES OF [facility] Glucose [Mass/Vol] 118 mg/dL High 74-99 [facility] Comment on above: Order Comment: Shira francia Type: BLOOD SPECIMENOrdering Facility: [facility] Address: [address] [place] [address] Result Comment: The [place] [employer] (ADA) provides guidance for cutoff [...] Standards of Medical Care in Diabetes 2016, [place] [employer]. Diabetes Care. 2016.39(Suppl 1). Performed By: #### 2 4321-2 ####[facility]ORATORYCLIA [id number] [place] [address] [place] Potassium [Moles/Vol] 3.7 mmol/L Normal 3.7-5.1 [facility] Comment on above: Order Comment: Speci men Type: BLOOD SPECIMENOrdering Facility: [facility] Address: [address] [place] [address] Performed By: #### 2 4321-2 ####[facility]ORATORYCLIA [id number] [place] [address] [place] Sodium [Moles/Vol] 137 mmol/L Normal 136-144 [facility] Comment on above: Order Comment: Speci men Type: BLOOD SPECIMENOrdering Facility: [facility] Address: [address] [place] [address] Performed By: #### 2 4321-2 ####[facility]ORATORYCLIA [id number] [place] [address] [place] Urea nitrogen [Mass/Vol] 23 mg/dL Normal 9-24 [facility] Comment on above: Order Comment: Speci men Type: BLOOD SPECIMENOrdering Facility: [facility] Address: [address] [place] [address] Performed By: #### 2 4321-2 ####[facility]ORATORYCLIA [id number] [place] [address] [place] Anion gap [Moles/Vol] 17 mmol/L Normal 9-18 [facility] Comment on above: Order Comment: Speci men Type: BLOOD SPECIMENOrdering Facility: [facility] Address: [address] [place] [address] Performed By: #### 1 9123-9, 2777-1, 64160-6 ####[facility]ORATORYCLIA [id number] [place] [address] [place] Calcium [Mass/Vol] 7.7 mg/dL Low 8.5-10.2 [facility] Comment on above: Order Comment: Speci men Type: BLOOD SPECIMENOrdering Facility: [facility] Address: [address] [place] [address] Performed By: #### 1 9123-9, 27711-04, 89841-4 ####[facility]ORATORYCLIA [id number] [place] [address] [place] Chloride [Moles/Vol] 86 mmol/L Low 97-105 [facility] Comment on above: Order Comment: Speci men Type: BLOOD SPECIMENOrdering Facility: [facility] Address: [address] [place] [address] Performed By: #### 1 9123-9, 27711-04, 93692-6 ####[facility]ORATORYCLIA [id number] [address] [place] CO2 [Moles/Vol] 24 mmol/L Normal 22-30 [facility] Comment on above: Order Comment: Speci men Type: BLOOD SPECIMENOrdering Facility: [facility] Address: [address] [place] [address] Performed By: #### 1 9123-9, 27711-04, 30512-7 ####[facility]ORATORYCLIA [id number] [place] [address] [place] Creatinine [Mass/Vol] 0.53 mg/dL Low 0.73-1.22 [facility] Comment on above: Order Comment: Speci men Type: BLOOD SPECIMENOrdering Facility: [facility] Address: [address] [place] [address] Performed By: #### 1 9123-9, 27711-04, 53109-3 ####[facility]ORATORYCLIA [id number] [address] [place] ESTIMATED GLOMERULAR FILTRATION RATE 108 mL/min/1.73m??? Normal >=60 [facility] Comment on above: Order Comment: Shira feldman Type: BLOOD SPECIMENOrdering Facility: [facility] Address: [address] [place] [address] Result Comment: Luzmaria mated Glomerular Filtration Rate [...] GFR. Performed By: #### 1 9123-9, 2777-1, 02610-2 ####[facility]ENTERCLIA [id number] [place] [address] [place] Glucose [Mass/Vol] 455 mg/dL High 74-99 [facility] Comment on above: Order Comment: Shira feldman Type: BLOOD SPECIMENOrdering Facility: [facility] Address: [address] [place] [address] Result Comment: The [place] [employer] (ADA) provides guidance for cutoff [...] Standards of Medical Care in Diabetes 2016, [place] [employer]. Diabetes Care. 2016.39(Suppl 1). Performed By: #### 1 9123-9, 2777-1, 42615-6 ####[facility]ORATORYCLIA [id number] [place] [address] [place] Potassium [Moles/Vol] 3.4 mmol/L Low 3.7-5.1 [facility] Comment on above: Order Comment: Shira [facility] Type: BLOOD SPECIMENOrdering Facility: [facility] Address: [address] [place] [address] Performed By: #### 1 9123-9, 2777-1, 01531-6 ####[facility]ORATORYCLIA [id number] [address] [place] Sodium [Moles/Vol] 127 mmol/L Low 136-144 [facility] Comment on above: Order Comment: Speci men Type: BLOOD SPECIMENOrdering Facility: [facility] Address: [address] [place] [address] Performed By: #### 1 9123-9, 2777-1, 66020-1 ####[facility]ORATORYCLIA [id number] [address] [place] Urea nitrogen [Mass/Vol] 21 mg/dL Normal 9-24 [facility] Comment on above: Order Comment: Speci men Type: BLOOD SPECIMENOrdering Facility: [facility] Address: [address] [place] [address] Performed By: #### 1 9123-9, 2777-, 36642-6 ####[facility]ORATORYCLIA [id number] [address] [place] CASE MANAGEMon 08-10-2021 CASE MANAGEM Normal [facility] CBC W Auto Differential pane l (Bld)on 08-10-2021 Basophils (Bld) [#/Vol] 0.04 10*3/uL Normal <0.11 [facility] Comment on above: Order Comment: Speci men Type: BLOOD SPECIMENOrdering Facility: [facility] Address: [address] [place] [address] Performed By: #### 5 7021-8 ####[facility]ORATORYCLIA [id number] [address] [place] Basophils/100 WBC (Bld) 0.4 % Normal [facility] Comment on above: Order Comment: Speci men Type: BLOOD SPECIMENOrdering Facility: [facility] Address: [address] [place] [address] Performed By: #### 5 7021-8 ####[facility]ORATORYCLIA [id number] [address] Differential cell count method Nom (Bld) Auto Normal [facility] Comment on above: Order Comment: Speci men Type: BLOOD SPECIMENOrdering Facility: [facility] Address: [address] [place] [address] Performed By: #### 5 7021-8 ####[facility]ORATORYCLIA [id number] [address] Eosinophils (Bld) [#/Vol] 0.11 10*3/uL Normal <0.46 [facility] Comment on above: Order Comment: Speci men Type: BLOOD SPECIMENOrdering Facility: [facility] Address: [address] [place] [address] Performed By: #### 5 7021-8 ####[facility]ORATORYCLIA [id number] [address] Eosinophils/100 WBC (Bld) 1.1 % Normal [facility] Comment on above: Order Comment: Speci men Type: BLOOD SPECIMENOrdering Facility: [facility] Address: [address] [place] [address] Performed By: #### 5 7021-8 ####[facility]ORATORYCLIA [id number] [address] Erythrocyte distribution width (RBC) [Ratio] 17.2 % High 11.5-15.0 [facility] Comment on above: Order Comment: Speci men Type: BLOOD SPECIMENOrdering Facility: [facility] Address: [address] [place] [address] Performed By: #### 5 7021-8 ####[facility]ORATORYCLIA [id number] [address] Hematocrit (Bld) [Volume fraction] 25.5 % Low 39.0-51.0 [facility] Comment on above: Order Comment: Speci men Type: BLOOD SPECIMENOrdering Facility: [facility] Address: [address] [place] [address] Performed By: #### 5 7021-8 ####[facility]ORATORYCLIA [id number] [address] Hemoglobin (Bld) [Mass/Vol] 7.9 g/dL Low 13.0-17.0 [facility] Comment on above: Order Comment: Speci men Type: BLOOD SPECIMENOrdering Facility: [facility] Address: [address] [place] [address] Performed By: #### 5 7021-8 ####[facility]ORATORYCLIA [id number] [address] IMMATURE GRAN % 0.4 % Normal [facility] Comment on above: Order Comment: Speci men Type: BLOOD SPECIMENOrdering Facility: [facility] Address: [address] [place] [address] Performed By: #### 5 7021-8 ####[facility]ORATORYCLIA [id number] [address] IMMATURE GRAN ABS 0.04 k/uL Normal <0.10 [facility] Comment on above: Order Comment: Speci men Type: BLOOD SPECIMENOrdering Facility: [facility] Address: [address] [place] [address] Performed By: #### 5 7021-8 ####[facility]ORATORYCLIA [id number] [address] Lymphocytes (Bld) [#/Vol] 1.66 10*3/uL Normal 1.00-4.00 [facility] Comment on above: Order Comment: Speci men Type: BLOOD SPECIMENOrdering Facility: [facility] Address: [address] [place] [address] Performed By: #### 5 7021-8 ####[facility]ORATORYCLIA [id number] [address] Lymphocytes/100 WBC (Bld) 16.2 % Normal [facility] Comment on above: Order Comment: Speci men Type: BLOOD SPECIMENOrdering Facility: [facility] Address: [address] [place] [address] Performed By: #### 5 7021-8 ####[facility]ORATORYCLIA [id number] [address] MCH (RBC) [Entitic mass] 28.5 pg Normal 26.0-34.0 [facility] Comment on above: Order Comment: Speci men Type: BLOOD SPECIMENOrdering Facility: [facility] Address: [address] [place] [address] Performed By: #### 5 7021-8 ####[facility]ORATORYCLIA [id number] [address] MCHC (RBC) [Mass/Vol] 31.0 g/dL Normal 30.5-36.0 [facility] Comment on above: Order Comment: Speci men Type: BLOOD SPECIMENOrdering Facility: [facility] Address: [address] [place] [address] Performed By: #### 5 7021-8 ####[facility]ORATORYCLIA [id number] [address] MCV (RBC) [Entitic vol] 92.1 fL Normal 80.0-100.0 [facility] Comment on above: Order Comment: Speci men Type: BLOOD SPECIMENOrdering Facility: [facility] Address: [address] [place] [address] Performed By: #### 5 7021-8 ####[facility]ORATORYCLIA [id number] [address] Monocytes (Bld) [#/Vol] 0.51 10*3/uL Normal <0.87 [facility] Comment on above: Order Comment: Speci men Type: BLOOD SPECIMENOrdering Facility: [facility] Address: [address] [place] [address] Performed By: #### 5 7021-8 ####[facility] CENTERCLIA [id number] [address] [place] Monocytes/100 WBC (Bld) 5.0 % Normal [facility] Comment on above: Order Comment: Speci men Type: BLOOD SPECIMENOrdering Facility: [facility] Address: [address] [place] [address] Performed By: #### 5 7021-8 ####[facility]ORATORYCLIA [id number] [place] [address] [place] Neutrophils (Bld) [#/Vol] 7.91 10*3/uL High 1.45-7.50 [facility] Comment on above: Order Comment: Speci men Type: BLOOD SPECIMENOrdering Facility: [facility] [facility] Address: [address] [place] [address] Performed By: #### 5 7021-8 ####[facility] LABORATORYCLIA [id number] [address] Neutrophils/100 WBC (Bld) 76.9 % Normal [facility] Comment on above: Order Comment: Speci men Type: BLOOD SPECIMENOrdering Facility: [facility] Address: [address] [place] [address] Performed By: #### 5 7021-8 ####[facility] LABORATORYCLIA [id number] [address] [place] Nucleated RBC (Bld) [#/Vol] 10*3/uL Normal <0.01 [facility] Comment on above: Order Comment: Speci men Type: BLOOD SPECIMENOrdering Facility: [facility] Address: [address] [place] [address] Performed By: #### 5 7021-8 ####[facility]ORATORYCLIA [id number] [address] [place] Nucleated RBC/100 WBC (Bld) [Ratio] 0.0 /100 WBC Normal [facility] Comment on above: Order Comment: Speci men Type: BLOOD SPECIMENOrdering Facility: [facility] Address: [address] Performed By: #### 5 7021-8 ####[facility] LABORATORYCLIA [id number] [address] Platelet mean volume (Bld) [Entitic vol] 10.3 fL Normal 9.0-12.7 [facility] Comment on above: Order Comment: Speci men Type: BLOOD SPECIMENOrdering Facility: [facility] Address: [address] [place], [place] [address] Performed By: #### 5 7021-8 ####[facility] LABORATORYCLIA [id number] [address] [place] Platelets (Bld) [#/Vol] 152 10*3/uL Normal 150-400 [facility] Comment on above: Order Comment: Speci men Type: BLOOD SPECIMENOrdering Facility: [facility] Address: [address] [place], [place] [address] Performed By: #### 5 7021-8 ####[facility] LABORATORYCLIA [id number] [address] [place] RBC (Bld) [#/Vol] 2.77 10*6/uL Low 4.20-6.00 [facility] Comment on above: Order Comment: Speci men Type: BLOOD SPECIMENOrdering Facility: [facility] Address: [address] [place], [place] [address] Performed By: #### 5 7021-8 ####[facility] LABORATORYCLIA [id number] [address] [place] WBC (Bld) [#/Vol] 10.27 10*3/uL Normal 3.70-11.00 [facility] Comment on above: Order Comment: Speci men Type: BLOOD SPECIMENOrdering Facility: [facility] Address: [address] [place], [place] [address] Performed By: #### 5 7021-8 ####[facility] LABORATORYCLIA [id number] [address] Magnesium SerPl-mCncon 08-10 Magnesium [Mass/Vol] 1.8 mg/dL Normal 1.7-2.3 [facility] Comment on above: Order Comment: Speci men Type: BLOOD SPECIMENOrdering Facility: [facility] Address: [address] [place] [address] Performed By: #### 1 9123-9, 2777-1, 10954-5 ####[facility] LABORATORYCLIA [id number] [address] NURSING PROGon 08-10-2021 NURSING PROG Normal [facility] NURSING PROG Normal [facility] NUTRITIONon 08-10-2021 NUTRITION Normal [facility] Phosphate SerPl-mCncon 08-10 Phosphate [Mass/Vol] 3.7 mg/dL Normal 2.7-4.8 [facility] Comment on above: Order Comment: Speci men Type: BLOOD SPECIMENOrdering Facility: [facility] Address: [address] [place] [address] Performed By: #### 1 9123-9, 2777-1, 32166-7 ####[facility] LABORATORYCLIA [id number] [address] ALLIED HEALTHon 08-09-2021 ALLIED HEALTH Normal [facility] [...] Comment: Speci men Type: BLOOD SPECIMENOrdering Facility: [facility] Address: [address] [place] [address] Performed By: #### 2 4321-2, 26608-0, 2777-1 ####[facility] LABORATORYCLIA [id number] [address] STATES OF [facility] Calcium [Mass/Vol] 9.2 mg/dL Normal 8.5-10.2 [facility] Comment on above: Order Comment: Speci men Type: BLOOD SPECIMENOrdering Facility: [facility] Address: [address] [place] [address] Performed By: #### 2 4321-2, , 2776-05 ####[facility] LABORATORYCLIA [id number] [place] [address] [place] Chloride [Moles/Vol] 97 mmol/L Normal 97-105 [facility] Comment on above: Order Comment: Speci men Type: BLOOD SPECIMENOrdering Facility: [facility] Address: [address] [place] [address] Performed By: #### 2 4321-2, , 2776-05 ####[facility] LABORATORYCLIA [id number] [address] STATES OF [facility] CO2 [Moles/Vol] 30 mmol/L Normal 22-30 [facility] Comment on above: Order Comment: Speci men Type: BLOOD SPECIMENOrdering Facility: [facility] Address: [address] [place] [address] Performed By: #### 2 4321-2, , 2776-05 ####[facility] LABORATORYCLIA [id number] [address] [place] Creatinine [Mass/Vol] 0.51 mg/dL Low 0.73-1.22 [facility] Comment on above: Order Comment: Speci men Type: BLOOD SPECIMENOrdering Facility: [facility] Address: [address] [place] [address] Performed By: #### 2 4321-2, , 2776-05 ####[facility] LABORATORYCLIA [id number] [address] [place] ESTIMATED GLOMERULAR FILTRATION RATE 110 mL/min/1.73m??? Normal >=60 [facility] Comment on above: Order Comment: Shira feldman Type: BLOOD SPECIMENOrdering Facility: [facility] Address: [address] [place] [address] Result Comment: Luzmaria mated Glomerular Filtration Rate [...] actual GFR. Performed By: #### 2 4321-2, 74349-8, 2776-05 ####[facility] LABORATORYCLIA [id number] [place] [address] [place] Glucose [Mass/Vol] 106 mg/dL High 74-99 [facility] Comment on above: Order Comment: Shira feldman Type: BLOOD SPECIMENOrdering Facility: [facility] Address: [address] [place] [address] Result Comment: The [place] [employer] (ADA) provides guidance for cutoff [...] Standards of Medical Care in Diabetes 2016, [place] [employer]. Diabetes Care. 2016.39(Suppl 1). Performed By: #### 2 4321-2, , 2776-05 ####[facility] LABORATORYCLIA [id number] [place] [address] [place] Potassium [Moles/Vol] 4.1 mmol/L Normal 3.7-5.1 [facility] Comment on above: Order Comment: Shira feldman Type: BLOOD SPECIMENOrdering Facility: [facility] Address: [address] [address] Performed By: #### 2 4321-2, , 1 ####[facility] LABORATORYCLIA [id number] [address] STATES OF [facility] Sodium [Moles/Vol] 135 mmol/L Low 136-144 [facility] Comment on above: Order Comment: Speci men Type: BLOOD SPECIMENOrdering Facility: [facility] Address: [address] [place] [address] Performed By: #### 2 4321-2, , 2776-05 ####[facility] LABORATORYCLIA [id number] [address] [place] Urea nitrogen [Mass/Vol] 26 mg/dL High 9-24 [facility] Comment on above: Order Comment: Speci men Type: BLOOD SPECIMENOrdering Facility: [facility] Address: [address] [place] [address] Performed By: #### 2 4321-2, , 2776-05 ####[facility] LABORATORYCLIA [id number] [address] [place] CBC W Auto Differential pane l (Bld)on 08-09-2021 Basophils (Bld) [#/Vol] 0.06 10*3/uL Normal <0.11 [facility] Comment on above: Order Comment: Speci men Type: BLOOD SPECIMENOrdering Facility: [facility] Address: [address] [place] [address] Performed By: #### 5 7021-8 ####[facility] LABORATORYCLIA [id number] [address] [place] Basophils/100 WBC (Bld) 0.5 % Normal [facility] Comment on above: Order Comment: Speci men Type: BLOOD SPECIMENOrdering Facility: [facility] Address: [address] [place] [address] Performed By: #### 5 7021-8 ####[facility] LABORATORYCLIA [id number] [address] Differential cell count method Nom (Bld) Auto Normal [facility] Comment on above: Order Comment: Speci men Type: BLOOD SPECIMENOrdering Facility: [facility] Address: [address] [place] [address] Performed By: #### 5 7021-8 ####[facility] LABORATORYCLIA [id number] [address] [place] Eosinophils (Bld) [#/Vol] 0.42 10*3/uL Normal <0.46 [facility] Comment on above: Order Comment: Speci men Type: BLOOD SPECIMENOrdering Facility: [facility] Address: [address] [place] [address] Performed By: #### 5 7021-8 ####[facility] LABORATORYCLIA [id number] [address] Eosinophils/100 WBC (Bld) 3.8 % Normal [facility] Comment on above: Order Comment: Speci men Type: BLOOD SPECIMENOrdering Facility: [facility] Address: [address] [place] [address] Performed By: #### 5 7021-8 ####[facility] LABORATORYCLIA [id number] [address] [place] Erythrocyte distribution width (RBC) [Ratio] 17.6 % High 11.5-15.0 [facility] Comment on above: Order Comment: Speci men Type: BLOOD SPECIMENOrdering Facility: [facility] Address: [address] [place] [address] Performed By: #### 5 7021-8 ####[facility] LABORATORYCLIA [id number] [address] Hematocrit (Bld) [Volume fraction] 29.3 % Low 39.0-51.0 [facility] Comment on above: Order Comment: Speci men Type: BLOOD SPECIMENOrdering Facility: [facility] Address: [address] [place] [address] Performed By: #### 5 7021-8 ####[facility] LABORATORYCLIA [id number] [address] STATES OF [facility] Hemoglobin (Bld) [Mass/Vol] 9.0 g/dL Low 13.0-17.0 [facility] Comment on above: Order Comment: Speci men Type: BLOOD SPECIMENOrdering Facility: [facility] Address: [address] [place] [address] Performed By: #### 5 7021-8 ####[facility] LABORATORYCLIA [id number] [address] IMMATURE GRAN % 0.5 % Normal [facility] Comment on above: Order Comment: Speci men Type: BLOOD SPECIMENOrdering Facility: [facility] Address: [address] [place] [address] Performed By: #### 5 7021-8 ####[facility] LABORATORYCLIA [id number] [address] IMMATURE GRAN ABS 0.05 k/uL Normal <0.10 [facility] Comment on above: Order Comment: Speci men Type: BLOOD SPECIMENOrdering Facility: [facility] Address: [address] [place] [address] Performed By: #### 5 7021-8 ####[facility] LABORATORYCLIA [id number] [address] [place] Lymphocytes (Bld) [#/Vol] 2.00 10*3/uL Normal 1.00-4.00 [facility] Comment on above: Order Comment: Speci men Type: BLOOD SPECIMENOrdering Facility: [facility] Address: [address] [place] [address] Performed By: #### 5 7021-8 ####[facility] LABORATORYCLIA [id number] [address] Lymphocytes/100 WBC (Bld) 18.1 % Normal [facility] Comment on above: Order Comment: Speci men Type: BLOOD SPECIMENOrdering Facility: [facility] Address: [address] [place] [address] Performed By: #### 5 7021-8 ####[facility] LABORATORYCLIA [id number] [address] MCH (RBC) [Entitic mass] 28.1 pg Normal 26.0-34.0 [facility] Comment on above: Order Comment: Speci men Type: BLOOD SPECIMENOrdering Facility: [facility] Address: [address] [place] [address] Performed By: #### 5 7021-8 ####[facility] LABORATORYCLIA [id number] [address] MCHC (RBC) [Mass/Vol] 30.7 g/dL Normal 30.5-36.0 [facility] Comment on above: Order Comment: Speci men Type: BLOOD SPECIMENOrdering Facility: [facility] Address: [address] [place] [address] Performed By: #### 5 7021-8 ####[facility] LABORATORYCLIA [id number] [address] STATES OF [facility] MCV (RBC) [Entitic vol] 91.6 fL Normal 80.0-100.0 [facility] Comment on above: Order Comment: Speci men Type: BLOOD SPECIMENOrdering Facility: [facility] Address: [address] [place] [address] Performed By: #### 5 7021-8 ####[facility] LABORATORYCLIA [id number] [address] Monocytes (Bld) [#/Vol] 0.68 10*3/uL Normal <0.87 [facility] Comment on above: Order Comment: Speci men Type: BLOOD SPECIMENOrdering Facility: [facility] Address: [address] [place] [address] Performed By: #### 5 7021-8 ####[facility] LABORATORYCLIA [id number] [address] Monocytes/100 WBC (Bld) 6.2 % Normal [facility] Comment on above: Order Comment: Speci men Type: BLOOD SPECIMENOrdering Facility: [facility] Address: [address] [place] [address] Performed By: #### 5 7021-8 ####[facility]ORATORYCLIA [id number] [address] [place] Neutrophils (Bld) [#/Vol] 7.82 10*3/uL High 1.45-7.50 [facility] Comment on above: Order Comment: Speci men Type: BLOOD SPECIMENOrdering Facility: [facility] Address: [address] [place] [address] Performed By: #### 5 7021-8 ####[facility]ORATORYCLIA [id number] [address] [place] Neutrophils/100 WBC (Bld) 70.9 % Normal [facility] Comment on above: Order Comment: Speci men Type: BLOOD SPECIMENOrdering Facility: [facility] Address: [address] [place], [place] [address] Performed By: #### 5 7021-8 ####[facility]ATORYCLIA [id number] [address] [place] Nucleated RBC (Bld) [#/Vol] 10*3/uL Normal <0.01 [facility] Comment on above: Order Comment: Speci men Type: BLOOD SPECIMENOrdering Facility: [facility] Address: [address] [place], [place] [address] Performed By: #### 5 7021-8 ####[facility]ORATORYCLIA [id number] [address] [place] Nucleated RBC/100 WBC (Bld) [Ratio] 0.0 /100 WBC Normal [facility] Comment on above: Order Comment: Speci men Type: BLOOD SPECIMENOrdering Facility: [facility] Address: [address] [place] [address] Performed By: #### 5 7021-8 ####[facility]ORATORYCLIA [id number] [address] [place] Platelet mean volume (Bld) [Entitic vol] 10.1 fL Normal 9.0-12.7 [facility] Comment on above: Order Comment: Speci men Type: BLOOD SPECIMENOrdering Facility: [facility] Address: [address] [place] [address] Performed By: #### 5 7021-8 ####[facility] LABORATORYCLIA [id number] [address] [place] Platelets (Bld) [#/Vol] 160 10*3/uL Normal 150-400 [facility] Comment on above: Order Comment: Speci men Type: BLOOD SPECIMENOrdering Facility: [facility] Address: [address] [place] [address] Performed By: #### 5 7021-8 ####[facility] LABORATORYCLIA [id number] [place] [address] [place] RBC (Bld) [#/Vol] 3.20 10*6/uL Low 4.20-6.00 [facility] Comment on above: Order Comment: Speci men Type: BLOOD SPECIMENOrdering Facility: [facility] Address: [address] [place] [address] Performed By: #### 5 7021-8 ####[facility] LABORATORYCLIA [id number] [place] [address] [place] WBC (Bld) [#/Vol] 11.03 10*3/uL High 3.70-11.00 [facility] Comment on above: Order Comment: Speci men Type: BLOOD SPECIMENOrdering Facility: [facility] Address: [address] [place] [address] Performed By: #### 5 7021-8 ####[facility] LABORATORYCLIA [id number] [address] [place] CONSULT PROGon 08-09-2021 CONSULT PROG Normal [facility] CT BRAIN WO IVCONon 08-10-[address] BRAIN WO IVCON Normal [facility] CT BRAIN WO IVCON Normal [facility] Magnesium SerPl-mCncon 08-09 Magnesium [Mass/Vol] 2.0 mg/dL Normal 1.7-2.3 [facility] Comment on above: Order Comment: Speci men Type: BLOOD SPECIMENOrdering Facility: [facility] Address: [address] [place] [address] Performed By: #### 2 4321-2, 41064-6, 2777-1 ####[facility] LABORATORYCLIA [id number] [address] OF [facility] NURSING PROGon 08-09-2021 NURSING PROG Normal [facility] OPERATIVE NOon 08-09-2021 OPERATIVE NO Normal [facility] PT panel Coag (PPP)on 2021 INR Coag (PPP) [Relative time] 1.1 {INR} Normal 0.9-1.3 [facility] Comment on above: Order Comment: Speci men Type: BLOOD SPECIMENOrdering Facility: [facility] Address: [address] [place] [address] Result Comment: Yris min K Antagonist (VKA) Therapeutic Range: INR 2 to 3 (Target INR of 2.5)Note: For patients treated with VKA drugs, such as warfarin, the [place] [employer] 2012 Guideline recommends [...] al. Chest 2012, 141:7S-47SAlba MURRY, et al. [facility] 2017, 70: 252-289 Performed By: #### 3 4528-0, 18562-5 ####[facility] LABORATORYCLIA [id number] [address] [place] PT Coag (PPP) [Time] 11.7 s Normal 9.7-13.0 [facility] Comment on above: Order Comment: Speci men Type: BLOOD SPECIMENOrdering Facility: [facility] Address: [address] [place] [address] Performed By: #### 3 4528-0, 45782-4 ####[facility] LABORATORYCLIA [id number] [address] [place] Phosphate SerPl-mCncon 08-09 Phosphate [Mass/Vol] 4.0 mg/dL Normal 2.7-4.8 [facility] Comment on above: Order Comment: Speci men Type: BLOOD SPECIMENOrdering Facility: [facility] Address: [address] [place] [address] Performed By: #### 2 4321-2, 20884-5, 2777-1 ####[facility] LABORATORYCLIA [id number] [address] OF [facility] THERAPY NTon 08-09-2021 THERAPY NT Normal [facility] THERAPY NT Normal [facility] TYPE AND SCREENon 08-09-2021 ABO O Normal [facility] Comment on above: Order Comment: Speci men Type: BLOOD SPECIMENOrdering Facility: [facility] Address: [address] [place] [address] Performed By: #### T SCR ####[facility] BLOOD BANKCLIA [id number] [address] [place] HISTORICAL AB SCR STATUS Negative Normal [facility] Comment on above: Order Comment: Speci men Type: BLOOD SPECIMENOrdering Facility: [facility] Address: [address] [place] [address] Performed By: #### T SCR ####[facility] BLOOD BANKCLIA [id number] [address] Rh Nom (Bld) Positive Normal [facility] Comment on above: Order Comment: Speci men Type: BLOOD SPECIMENOrdering Facility: [facility] Address: [address] [place] [address] Performed By: #### T SCR ####[facility] BLOOD BANKCLIA [id number] [address] TYPE AND SCREEN EXPIRATION 08/12/2021 23:59 Normal [facility] Comment on above: Order Comment: Speci men Type: BLOOD SPECIMENOrdering Facility: [facility] Address: [address] [place] [address] Performed By: #### T SCR ####[facility] BLOOD BANKCLIA [id number] [address] XR ABD 2V SUPINE W UPR/DECUB [...] Coag (PPP) [Time] 26.8 s Normal 23.0-32.4 [facility] Comment on above: Order Comment: Speci men Type: BLOOD SPECIMENOrdering Facility: [facility] Address: [address] [place] [address] Performed By: #### 3 4528-0, 01701-6 ####[facility] LABORATORYCLIA [id number] [address] CASE MANAGEMon 08-08-2021 CASE MANAGEM Normal [facility] CBC W Auto Differential pane l (Bld)on 08-08-2021 Basophils (Bld) [#/Vol] 0.05 10*3/uL Normal <0.11 [facility] Comment on above: Order Comment: Speci men Type: BLOOD SPECIMENOrdering Facility: [facility] Address: [address] [address] Performed By: #### 5 7021-8 ####[facility]ATORYCLIA [id number] [address] Basophils/100 WBC (Bld) 0.5 % Normal [facility] Comment on above: Order Comment: Speci men Type: BLOOD SPECIMENOrdering Facility: [facility] Address: [address] [place] [address] Performed By: #### 5 7021-8 ####[facility] LABORATORYCLIA [id number] [address] Differential cell count method Nom (Bld) Auto Normal [facility] Comment on above: Order Comment: Speci men Type: BLOOD SPECIMENOrdering Facility: [facility] Address: [address] [place] [address] Performed By: #### 5 7021-8 ####[facility] LABORATORYCLIA [id number] [address] [place] Eosinophils (Bld) [#/Vol] 0.17 10*3/uL Normal <0.46 [facility] Comment on above: Order Comment: Speci men Type: BLOOD SPECIMENOrdering Facility: [facility] Address: [address] [place] [address] Performed By: #### 5 7021-8 ####[facility]ORATORYCLIA [id number] [address] Eosinophils/100 WBC (Bld) 1.6 % Normal [facility] Comment on above: Order Comment: Speci men Type: BLOOD SPECIMENOrdering Facility: [facility] Address: [address] [place] [address] Performed By: #### 5 7021-8 ####[facility] LABORATORYCLIA [id number] [address] [place] Erythrocyte distribution width (RBC) [Ratio] 17.8 % High 11.5-15.0 [facility] Comment on above: Order Comment: Speci men Type: BLOOD SPECIMENOrdering Facility: [facility] Address: [address] [place] [address] Performed By: #### 5 7021-8 ####[facility] LABORATORYCLIA [id number] [address] Hematocrit (Bld) [Volume fraction] 29.6 % Low 39.0-51.0 [facility] Comment on above: Order Comment: Speci men Type: BLOOD SPECIMENOrdering Facility: [facility] Address: [address] [place] [address] Performed By: #### 5 7021-8 ####[facility] LABORATORYCLIA [id number] [address] Hemoglobin (Bld) [Mass/Vol] 9.0 g/dL Low 13.0-17.0 [facility] Comment on above: Order Comment: Speci men Type: BLOOD SPECIMENOrdering Facility: [facility] Address: [address] [place] [address] Performed By: #### 5 7021-8 ####[facility] LABORATORYCLIA [id number] [address] IMMATURE GRAN % 0.5 % Normal [facility] Comment on above: Order Comment: Speci men Type: BLOOD SPECIMENOrdering Facility: [facility] Address: [address] [place] [address] Performed By: #### 5 7021-8 ####[facility] LABORATORYCLIA [id number] [address] IMMATURE GRAN ABS 0.05 k/uL Normal <0.10 [facility] Comment on above: Order Comment: Speci men Type: BLOOD SPECIMENOrdering Facility: [facility] Address: [address] [place] [address] Performed By: #### 5 7021-8 ####[facility] LABORATORYCLIA [id number] [place] [address] [place] Lymphocytes (Bld) [#/Vol] 1.93 10*3/uL Normal 1.00-4.00 [facility] Comment on above: Order Comment: Speci men Type: BLOOD SPECIMENOrdering Facility: [facility] Address: [address] [place] [address] Performed By: #### 5 7021-8 ####[facility] LABORATORYCLIA [id number] [address] [place] Lymphocytes/100 WBC (Bld) 18.2 % Normal [facility] Comment on above: Order Comment: Speci men Type: BLOOD SPECIMENOrdering Facility: [facility] Address: [address] [place] [address] Performed By: #### 5 7021-8 ####[facility] LABORATORYCLIA [id number] [address] [place] MCH (RBC) [Entitic mass] 28.1 pg Normal 26.0-34.0 [facility] Comment on above: Order Comment: Speci men Type: BLOOD SPECIMENOrdering Facility: [facility] Address: [address] [place] [address] Performed By: #### 5 7021-8 ####[facility] LABORATORYCLIA [id number] [address] [place] MCHC (RBC) [Mass/Vol] 30.4 g/dL Low 30.5-36.0 [facility] Comment on above: Order Comment: Speci men Type: BLOOD SPECIMENOrdering Facility: [facility] Address: [address] [place] [address] Performed By: #### 5 7021-8 ####[facility] LABORATORYCLIA [id number] [address] MCV (RBC) [Entitic vol] 92.5 fL Normal 80.0-100.0 [facility] Comment on above: Order Comment: Speci men Type: BLOOD SPECIMENOrdering Facility: [facility] Address: [address] [place] [address] Performed By: #### 5 7021-8 ####[facility] LABORATORYCLIA [id number] [place] [address] [place] Monocytes (Bld) [#/Vol] 0.75 10*3/uL Normal <0.87 [facility] Comment on above: Order Comment: Speci men Type: BLOOD SPECIMENOrdering Facility: [facility] Address: [address] [place] [address] Performed By: #### 5 7021-8 ####[facility] LABORATORYCLIA [id number] [address] [place] Monocytes/100 WBC (Bld) 7.1 % Normal [facility] Comment on above: Order Comment: Speci men Type: BLOOD SPECIMENOrdering Facility: [facility] Address: [address] [place] [address] Performed By: #### 5 7021-8 ####[facility] LABORATORYCLIA [id number] [address] [place] Neutrophils (Bld) [#/Vol] 7.65 10*3/uL High 1.45-7.50 [facility] Comment on above: Order Comment: Speci men Type: BLOOD SPECIMENOrdering Facility: [facility] Address: [address] [place] [address] Performed By: #### 5 7021-8 ####[facility] LABORATORYCLIA [id number] [address] [place] Neutrophils/100 WBC (Bld) 72.1 % Normal [facility] Comment on above: Order Comment: Speci men Type: BLOOD SPECIMENOrdering Facility: [facility] Address: [address] [place] [address] Performed By: #### 5 7021-8 ####[facility] LABORATORYCLIA [id number] [place] [address] [place] Nucleated RBC (Bld) [#/Vol] 10*3/uL Normal <0.01 [facility] Comment on above: Order Comment: Speci men Type: BLOOD SPECIMENOrdering Facility: [facility] Address: [address] [place] [address] Performed By: #### 5 7021-8 ####[facility] LABORATORYCLIA [id number] [address] Nucleated RBC/100 WBC (Bld) [Ratio] 0.0 /100 WBC Normal [facility] Comment on above: Order Comment: Speci men Type: BLOOD SPECIMENOrdering Facility: [facility] Address: [address] [place] [address] Performed By: #### 5 7021-8 ####[facility] LABORATORYCLIA [id number] [address] [place] Platelet mean volume (Bld) [Entitic vol] 9.8 fL Normal 9.0-12.7 [facility] Comment on above: Order Comment: Speci men Type: BLOOD SPECIMENOrdering Facility: [facility] Address: [address] [place] [address] Performed By: #### 5 7021-8 ####[facility] LABORATORYCLIA [id number] [address] [place] Platelets (Bld) [#/Vol] 175 10*3/uL Normal 150-400 [facility] Comment on above: Order Comment: Speci men Type: BLOOD SPECIMENOrdering Facility: [facility] Address: [address] [place] [address] Performed By: #### 5 7021-8 ####[facility] LABORATORYCLIA [id number] [address] [place] RBC (Bld) [#/Vol] 3.20 10*6/uL Low 4.20-6.00 [facility] Comment on above: Order Comment: Speci men Type: BLOOD SPECIMENOrdering Facility: [facility] Address: [address] [place] [address] Performed By: #### 5 7021-8 ####[facility] LABORATORYCLIA [id number] [address] [place] WBC (Bld) [#/Vol] 10.60 10*3/uL Normal 3.70-11.00 [facility] Comment on above: Order Comment: Speci men Type: BLOOD SPECIMENOrdering Facility: [facility] Address: [address] [place] [address] Performed By: #### 5 7021-8 ####[facility] LABORATORYCLIA [id number] [address] [place] CT BRAIN WO IVCONon 08-09-19 CT BRAIN WO IVCON Normal [facility] NURSING PROGon 08-08-2021 NURSING PROG Normal [facility] Prealbumin [Mass/Vol]on Prealbumin Nephelometry [Mass/Vol] 29 mg/dL Normal 17-36 [facility] Comment on above: Order Comment: Speci men Type: BLOOD SPECIMENOrdering Facility: [facility] Address: [address] [place] [address] Performed By: #### 1 4338-8 ####[facility] LABORATORYCLIA [id number] [address] OF [facility] SARS-CoV-2 RNA Resp Ql MEGAN+p robeon 08-08-2021 SARS-CoV-2 (COVID-19) RNA MEGAN+probe Ql (Resp) COVID 19 RESULT: SARS-CoV-2 (Agent of COVID-19) Not Detected by RT-PCR or equivalent method. This test has been authorized by FDA under an Emergency Use Authorization (EUA). Normal [facility] Comment on above: Performed By: #### 9 4500-6 ####[facility] LABORATORYCLIA [id number] [address] [place] ALLIED HEALTHon 08-07-2021 ALLIED HEALTH Normal [facility] Basic metabolic 2000 panelon 08-07-2021 Anion gap [Moles/Vol] 9 mmol/L Normal 9-18 [facility] Comment on above: Order Comment: Speci men Type: BLOOD SPECIMENOrdering Facility: [facility] Address: [address] Performed By: #### 2 4321-2, 2776-, , HFP ####[facility] LABORATORYCLIA [id number] [place] [address] [place] Calcium [Mass/Vol] 9.4 mg/dL Normal 8.5-10.2 [facility] Comment on above: Order Comment: Speci men Type: BLOOD SPECIMENOrdering Facility: [facility] Address: [address] [place] [address] Performed By: #### 2 4321-2, 2776-05, , HFP ####[facility] LABORATORYCLIA [id number] [place] [address] [place] Chloride [Moles/Vol] 98 mmol/L Normal 97-105 [facility] Comment on above: Order Comment: Speci men Type: BLOOD SPECIMENOrdering Facility: [facility] Address: [address] [place] [address] Performed By: #### 2 4321-2, 2776-05, , HFP ####[facility] LABORATORYCLIA [id number] [place] [address] [place] CO2 [Moles/Vol] 29 mmol/L Normal 22-30 [facility] Comment on above: Order Comment: Speci men Type: BLOOD SPECIMENOrdering Facility: [facility] Address: [address] [place], [place] [address] Performed By: #### 2 4321-2, 2776-05, , HFP ####[facility] LABORATORYCLIA [id number] [place] [address] [place] Creatinine [Mass/Vol] 0.67 mg/dL Low 0.73-1.22 [facility] Comment on above: Order Comment: Speci men Type: BLOOD SPECIMENOrdering Facility: [facility] Address: [address] [place], [place] [address] Performed By: #### 2 4321-2, 2776-, , HFP ####[facility] [id number] [place] [address] [facility] ESTIMATED GLOMERULAR FILTRATION RATE 101 mL/min/1.73m??? Normal >=60 [facility] Comment on above: Order Comment: Shira feldman Type: BLOOD SPECIMENOrdering Facility: [facility] Address: [address] [place] [address] Result Comment: Luzmaria mated Glomerular Filtration Rate [...] Performed By: #### 2 4321-2, 2777-, , [facility] ####[facility] [id number] [place] [id number] [facility] Glucose [Mass/Vol] 117 mg/dL High 74-99 [facility] Comment on above: Order Comment: Johncara feldman Type: BLOOD SPECIMENOrdering Facility: [facility] Address: [address] [place] [address] Result Comment: The [place] [employer] (ADA) provides guidance for cutoff [...] Standards of Medical Care in Diabetes 2016, [place] [employer]. Diabetes Care. 2016.39(Suppl 1). Performed By: #### 2 4321-2, 2777-, , [facility] ####[facility] [id number] [place] [address] [place] Potassium [Moles/Vol] 4.1 mmol/L Normal 3.7-5.1 [facility] Comment on above: Order Comment: Speci men Type: BLOOD SPECIMENOrdering Facility: [facility] Address: [address] [place] [address] Performed By: #### 2 4321-2, 2777-1, , HFP ####[facility] LABORATORYCLIA [id number] [address] STATES [facility] Sodium [Moles/Vol] 136 mmol/L Normal 136-144 [facility] Comment on above: Order Comment: Speci men Type: BLOOD SPECIMENOrdering Facility: [facility] Address: [address] [place] [address] Performed By: #### 2 4321-2, 2776-, , HFP ####[facility] LABORATORYCLIA [id number] [address] STATES [facility] Urea nitrogen [Mass/Vol] 31 mg/dL High 9-24 [facility] Comment on above: Order Comment: Speci men Type: BLOOD SPECIMENOrdering Facility: [facility] Address: [address] [place] [address] Performed By: #### 2 4321-2, 2776-, , HFP ####[facility] LABORATORYCLIA [id number] [address] STATES OF [facility] CBC W Auto Differential pane l (Bld)on 08-07-2021 Basophils (Bld) [#/Vol] 0.03 10*3/uL Normal <0.11 [facility] Comment on above: Order Comment: Speci men Type: BLOOD SPECIMENOrdering Facility: [facility] Address: [address] [place] [address] Performed By: #### 5 7021-8 ####[facility] LABORATORYCLIA [id number] [address] Basophils/100 WBC (Bld) 0.3 % Normal [facility] Comment on above: Order Comment: Speci men Type: BLOOD SPECIMENOrdering Facility: [facility] Address: [address] [place] [address] Performed By: #### 5 7021-8 ####[facility] LABORATORYCLIA [id number] [address] Differential cell count method Nom (Bld) Auto Normal [facility] Comment on above: Order Comment: Speci men Type: BLOOD SPECIMENOrdering Facility: [facility] Address: [address] [place] [address] Performed By: #### 5 7021-8 ####[facility] LABORATORYCLIA [id number] [address] [place] Eosinophils (Bld) [#/Vol] 0.16 10*3/uL Normal <0.46 [facility] Comment on above: Order Comment: Speci men Type: BLOOD SPECIMENOrdering Facility: [facility] Address: [address] [place] [address] Performed By: #### 5 7021-8 ####[facility] LABORATORYCLIA [id number] [address] Eosinophils/100 WBC (Bld) 1.6 % Normal [facility] Comment on above: Order Comment: Speci men Type: BLOOD SPECIMENOrdering Facility: [facility] Address: [address] [place] [address] Performed By: #### 5 7021-8 ####[facility] LABORATORYCLIA [id number] [address] [place] Erythrocyte distribution width (RBC) [Ratio] 18.1 % High 11.5-15.0 [facility] Comment on above: Order Comment: Speci men Type: BLOOD SPECIMENOrdering Facility: [facility] Address: [address] [place] [address] Performed By: #### 5 7021-8 ####[facility] LABORATORYCLIA [id number] [address] [place] Hematocrit (Bld) [Volume fraction] 30.6 % Low 39.0-51.0 [facility] Comment on above: Order Comment: Speci men Type: BLOOD SPECIMENOrdering Facility: [facility] Address: [address] [place] [address] Performed By: #### 5 7021-8 ####[facility] LABORATORYCLIA [id number] [address] [place] Hemoglobin (Bld) [Mass/Vol] 9.4 g/dL Low 13.0-17.0 [facility] Comment on above: Order Comment: Speci men Type: BLOOD SPECIMENOrdering Facility: [facility] Address: [address] [place] [address] Performed By: #### 5 7021-8 ####[facility] LABORATORYCLIA [id number] [address] [place] IMMATURE GRAN % 0.4 % Normal [facility] Comment on above: Order Comment: Speci men Type: BLOOD SPECIMENOrdering Facility: [facility] Address: [address] [place] [address] Performed By: #### 5 7021-8 ####[facility] LABORATORYCLIA [id number] [address] IMMATURE GRAN ABS 0.04 k/uL Normal <0.10 [facility] Comment on above: Order Comment: Speci men Type: BLOOD SPECIMENOrdering Facility: [facility] Address: [address] [place] [address] Performed By: #### 5 7021-8 ####[facility] LABORATORYCLIA [id number] [address] [place] Lymphocytes (Bld) [#/Vol] 2.05 10*3/uL Normal 1.00-4.00 [facility] Comment on above: Order Comment: Speci men Type: BLOOD SPECIMENOrdering Facility: [facility] Address: [address] [place] [address] Performed By: #### 5 7021-8 ####[facility] LABORATORYCLIA [id number] [address] Lymphocytes/100 WBC (Bld) 20.2 % Normal [facility] Comment on above: Order Comment: Speci men Type: BLOOD SPECIMENOrdering Facility: [facility] Address: [address] [place] [address] Performed By: #### 5 7021-8 ####[facility] LABORATORYCLIA [id number] [address] MCH (RBC) [Entitic mass] 28.8 pg Normal 26.0-34.0 [facility] Comment on above: Order Comment: Speci men Type: BLOOD SPECIMENOrdering Facility: [facility] Address: [address] [place] [address] Performed By: #### 5 7021-8 ####[facility] LABORATORYCLIA [id number] [address] MCHC (RBC) [Mass/Vol] 30.7 g/dL Normal 30.5-36.0 [facility] Comment on above: Order Comment: Speci men Type: BLOOD SPECIMENOrdering Facility: [facility] Address: [address] [place] [address] Performed By: #### 5 7021-8 ####[facility] LABORATORYCLIA [id number] [address] MCV (RBC) [Entitic vol] 93.9 fL Normal 80.0-100.0 [facility] Comment on above: Order Comment: Speci men Type: BLOOD SPECIMENOrdering Facility: [facility] Address: [address] [place] [address] Performed By: #### 5 7021-8 ####[facility] LABORATORYCLIA [id number] [address] Monocytes (Bld) [#/Vol] 0.64 10*3/uL Normal <0.87 [facility] Comment on above: Order Comment: Speci men Type: BLOOD SPECIMENOrdering Facility: [facility] Address: [address] [place] [address] Performed By: #### 5 7021-8 ####[facility] LABORATORYCLIA [id number] [address] [place] Monocytes/100 WBC (Bld) 6.3 % Normal [facility] Comment on above: Order Comment: Speci men Type: BLOOD SPECIMENOrdering Facility: [facility] Address: [address] [place] [address] Performed By: #### 5 7021-8 ####[facility] LABORATORYCLIA [id number] [place] [address] [place] Neutrophils (Bld) [#/Vol] 7.22 10*3/uL Normal 1.45-7.50 [facility] Comment on above: Order Comment: Speci men Type: BLOOD SPECIMENOrdering Facility: [facility] Address: [address] [place] [address] Performed By: #### 5 7021-8 ####[facility] LABORATORYCLIA [id number] [address] [place] Neutrophils/100 WBC (Bld) 71.2 % Normal [facility] Comment on above: Order Comment: Speci men Type: BLOOD SPECIMENOrdering Facility: [facility] Address: [address] [place] [address] Performed By: #### 5 7021-8 ####[facility] LABORATORYCLIA [id number] [place] [address] [place] Nucleated RBC (Bld) [#/Vol] 10*3/uL Normal <0.01 [facility] Comment on above: Order Comment: Speci men Type: BLOOD SPECIMENOrdering Facility: [facility] Address: [address] [place] [address] Performed By: #### 5 7021-8 ####[facility] LABORATORYCLIA [id number] [place] [address] [place] Nucleated RBC/100 WBC (Bld) [Ratio] 0.0 /100 WBC Normal [facility] Comment on above: Order Comment: Speci men Type: BLOOD SPECIMENOrdering Facility: [facility] Address: [address] [place] [address] Performed By: #### 5 7021-8 ####[facility] LABORATORYCLIA [id number] [address] [place] Platelet mean volume (Bld) [Entitic vol] 9.9 fL Normal 9.0-12.7 [facility] Comment on above: Order Comment: Speci men Type: BLOOD SPECIMENOrdering Facility: [facility] Address: [address] [place], [place] [address] Performed By: #### 5 7021-8 ####[facility] LABORATORYCLIA [id number] [address] [place] Platelets (Bld) [#/Vol] 227 10*3/uL Normal 150-400 [facility] Comment on above: Order Comment: Speci men Type: BLOOD SPECIMENOrdering Facility: [facility] Address: [address] [place] [address] Performed By: #### 5 7021-8 ####[facility] LABORATORYCLIA [id number] [place] [address] [place] RBC (Bld) [#/Vol] 3.26 10*6/uL Low 4.20-6.00 [facility] Comment on above: Order Comment: Speci men Type: BLOOD SPECIMENOrdering Facility: [facility] Address: [address] [place], [place] [address] Performed By: #### 5 7021-8 ####[facility] LABORATORYCLIA [id number] [address] [place] WBC (Bld) [#/Vol] 10.14 10*3/uL Normal 3.70-11.00 [facility] Comment on above: Order Comment: Speci men Type: BLOOD SPECIMENOrdering Facility: [facility] Address: [address] [place], [place] [address] Performed By: #### 5 7021-8 ####[facility] LABORATORYCLIA [id number] [address] BRAIN WO IVCONon 08-08-19 CT BRAIN WO IVCON Normal [facility] HEPATIC FUNCTION PNLon 08-07 Albumin [Mass/Vol] 3.6 g/dL Low 3.9-4.9 [facility] Comment on above: Order Comment: Speci men Type: BLOOD SPECIMENOrdering Facility: [facility] Address: [address] [place] [address] Performed By: #### 2 4321-2, 2777-1, , HFP ####[facility] LABORATORYCLIA [id number] [address] ALP [Catalytic activity/Vol] 124 U/L High 38-113 [facility] Comment on above: Order Comment: Speci men Type: BLOOD SPECIMENOrdering Facility: [facility] Address: [address] [place] [address] Performed By: #### 2 4321-2, 2777-1, , HFP ####[facility] LABORATORYCLIA [id number] [address] ALT With P-5'-P [Catalytic activity/Vol] 29 U/L Normal 10-54 [facility] Comment on above: Order Comment: Speci men Type: BLOOD SPECIMENOrdering Facility: [facility] Address: [address] [place] [address] Performed By: #### 2 4321-2, 2777-1, , HFP ####[facility] LABORATORYCLIA [id number] [address] AST With P-5'-P [Catalytic activity/Vol] 18 U/L Normal 14-40 [facility] Comment on above: Order Comment: Speci men Type: BLOOD SPECIMENOrdering Facility: [facility] Address: [address] [place] [address] Performed By: #### 2 4321-2, 277-, , HFP ####[facility] LABORATORYCLIA [id number] [place] [id number] [place] Bilirubin [Mass/Vol] 0.3 mg/dL Normal 0.2-1.3 [facility] Comment on above: Order Comment: Speci men Type: BLOOD SPECIMENOrdering Facility: [facility] Address: [address] [place], [place] [id number] Performed By: #### 2 4321-2, 2776-05, , HFP ####[facility] LABORATORYCLIA [id number] [place] [address] [place] Bilirubin.conjugated [Mass/Vol] mg/dL Normal <0.2 [facility] Comment on above: Order Comment: Speci men Type: BLOOD SPECIMENOrdering Facility: [facility] Address: [address] [place] [address] Performed By: #### 2 4321-2, 2776-05, , HFP ####[facility] LABORATORYCLIA [id number] [place] [address] [place] Protein [Mass/Vol] 6.4 g/dL Normal 6.3-8.0 [facility] Comment on above: Order Comment: Speci men Type: BLOOD SPECIMENOrdering Facility: SELECT [facility] Address: [address] [place] [address] Performed By: #### 2 4321-2, 2776-05, , HFP ####[facility]ATORYCLIA [id number] [place] [address] [place] Magnesium SerPl-mCncon 08-07 Magnesium [Mass/Vol] 2.3 mg/dL Normal 1.7-2.3 [facility] Comment on above: Order Comment: Speci men Type: BLOOD SPECIMENOrdering Facility: [facility] Address: [address] [place] [address] Performed By: #### 2 4321-2, 2776-05, , HFP ####[facility]ATORYCLIA [id number] [place] [address] [place] NURSING PROGon 08-07-2021 NURSING PROG Normal [facility] Phosphate SerPl-mCncon 08-07 Phosphate [Mass/Vol] 3.5 mg/dL Normal 2.7-4.8 [facility] Comment on above: Order Comment: Speci men Type: BLOOD SPECIMENOrdering Facility: [facility] Address: [address] [address] Performed By: #### 2 4321-2, 2776-05, , [facility] ####[facility]ORATORYCLIA [id number] [address] [place] ANES POSTPROC EVALon 022 ANES POSTPROC EVAL Normal [facility] Basic metabolic 2000 panelon 08-06-2021 Anion gap [Moles/Vol] 11 mmol/L Normal 9-18 [facility] Comment on above: Order Comment: Speci men Type: BLOOD SPECIMENOrdering Facility: [facility] Address: [address] [place] [address] Performed By: #### 2 4321-2, 2776-05, ####[facility]ENTERCLIA [id number] [place] [address] [place] Calcium [Mass/Vol] 8.2 mg/dL Low 8.5-10.2 [facility] Comment on above: Order Comment: Speci men Type: BLOOD SPECIMENOrdering Facility: [facility] Address: [address] [address] Performed By: #### 2 4321-2, 2776-05, ####[facility]ATORYCLIA [id number] [place] [address] [place] Chloride [Moles/Vol] 100 mmol/L Normal 97-105 [facility] Comment on above: Order Comment: Speci men Type: BLOOD SPECIMENOrdering Facility: [facility] Address: [address] [place], [place] [id number] Performed By: #### 2 4321-2, 2776-05, ####[facility]ENTERCLIA [id number] [place] [address] [place] [facility] CO2 [Moles/Vol] 23 mmol/L Normal 22-30 [facility] Comment on above: Order Comment: Speci men Type: BLOOD SPECIMENOrdering Facility: [facility] Address: [address] [place] [address] Performed By: #### 2 4321-2, 2776-05, ####[facility]ENTERCLIA [id number] [place] [id number] [place] [facility] Creatinine [Mass/Vol] 0.55 mg/dL Low 0.73-1.22 [facility] Comment on above: Order Comment: Speci men Type: BLOOD SPECIMENOrdering Facility: [facility] Address: [address] [place] [address] Performed By: #### 2 4321-2, 2776-05, ####[facility]ENTERCLIA [id number] [address] ESTIMATED GLOMERULAR FILTRATION RATE 107 mL/min/1.73m??? Normal >=60 [facility] Comment on above: Order Comment: Speci men Type: BLOOD SPECIMENOrdering Facility: [facility] Address: [address] [place] [address] Result Comment: Luzmaria mated Glomerular Filtration Rate [...] GFR. Performed By: #### 2 4321-2, 27711-04, ####[facility]ORATORYCLIA [id number] [place] [id number] [place] Glucose [Mass/Vol] 275 mg/dL High 74-99 [facility] Comment on above: Order Comment: Shira feldman Type: BLOOD SPECIMENOrdering Facility: [facility] Address: [address] [place], [place] [phone] Result Comment: The [place] [employer] (ADA) provides guidance for cutoff [...] Standards of Medical Care in Diabetes 2016, [place] [employer]. Diabetes Care. 2016.39(Suppl 1). Performed By: #### 2 4321-2, 2776-05, ####[facility]ORATORYCLIA [id number] [place] [address] [place] Potassium [Moles/Vol] 3.6 mmol/L Low 3.7-5.1 [facility] Comment on above: Order Comment: Shira feldman Type: BLOOD SPECIMENOrdering Facility: [facility] Address: [address] [place], [place] [phone] Performed By: #### 2 4321-2, 27711-04, ####[facility]ORATORYCLIA [id number] [place] [address] [place] Sodium [Moles/Vol] 134 mmol/L Low 136-144 [facility] Comment on above: Order Comment: Shira feldman Type: BLOOD SPECIMENOrdering Facility: [facility] Address: [address] [place], [place] [phone] Performed By: #### 2 4321-2, 2776-05, ####[facility]ORATORYCLIA [id number] [place] [address] [place] Urea nitrogen [Mass/Vol] 29 mg/dL High 9-24 [facility] Comment on above: Order Comment: Speci men Type: BLOOD SPECIMENOrdering Facility: [facility] Address: [address] [place] [address] Performed By: #### 2 4321-2, 2777-1, 22178-4 ####[facility]ORATORYCLIA [id number] [place] [address] [place] CBC W Auto Differential pane l (Bld)on 08-06-2021 Basophils (Bld) [#/Vol] 0.03 10*3/uL Normal <0.11 [facility] Comment on above: Order Comment: Speci men Type: BLOOD SPECIMENOrdering Facility: [facility] Address: [address] [place] [address] Performed By: #### 5 7021-8 ####[facility]ORATORYCLIA [id number] [place] [address] [place] Basophils/100 WBC (Bld) 0.3 % Normal [facility] Comment on above: Order Comment: Speci men Type: BLOOD SPECIMENOrdering Facility: [facility] Address: [address] [place] [address] Performed By: #### 5 7021-8 ####[facility]ORATORYCLIA [id number] [address] STATES [facility] Differential cell count method Nom (Bld) Auto Normal [facility] Comment on above: Order Comment: Speci men Type: BLOOD SPECIMENOrdering Facility: [facility] Address: [address] [place] [address] Performed By: #### 5 7021-8 ####[facility]ORATORYCLIA [id number] [place] [address] [place] Eosinophils (Bld) [#/Vol] 0.18 10*3/uL Normal <0.46 [facility] Comment on above: Order Comment: Speci men Type: BLOOD SPECIMENOrdering Facility: [facility] Address: [address] [place] [address] Performed By: #### 5 7021-8 ####[facility]ORATORYCLIA [id number] [address] STATES [facility] Eosinophils/100 WBC (Bld) 1.6 % Normal [facility] Comment on above: Order Comment: Speci men Type: BLOOD SPECIMENOrdering Facility: [facility] Address: [address] [place] [address] Performed By: #### 5 7021-8 ####[facility]ORATORYCLIA [id number] [address] Erythrocyte distribution width (RBC) [Ratio] 17.9 % High 11.5-15.0 [facility] Comment on above: Order Comment: Speci men Type: BLOOD SPECIMENOrdering Facility: [facility] Address: [address] [place] [address] Performed By: #### 5 7021-8 ####[facility]ORATORYCLIA [id number] [address] Hematocrit (Bld) [Volume fraction] 27.6 % Low 39.0-51.0 [facility] Comment on above: Order Comment: Speci men Type: BLOOD SPECIMENOrdering Facility: [facility] Address: [address] [place] [address] Performed By: #### 5 7021-8 ####[facility]ORATORYCLIA [id number] [address] [place] Hemoglobin (Bld) [Mass/Vol] 8.5 g/dL Low 13.0-17.0 [facility] Comment on above: Order Comment: Speci men Type: BLOOD SPECIMENOrdering Facility: [facility] Address: [address] [place] [address] Performed By: #### 5 7021-8 ####[facility]ORATORYCLIA [id number] [address] [place] IMMATURE GRAN % 0.6 % Normal [facility] Comment on above: Order Comment: Speci men Type: BLOOD SPECIMENOrdering Facility: [facility] Address: [address] [place] [address] Performed By: #### 5 7021-8 ####[facility]ORATORYCLIA [id number] [address] IMMATURE GRAN ABS 0.07 k/uL Normal <0.10 [facility] Comment on above: Order Comment: Speci men Type: BLOOD SPECIMENOrdering Facility: [facility] Address: [address] [place] [address] Performed By: #### 5 7021-8 ####[facility]ORATORYCLIA [id number] [address] Lymphocytes (Bld) [#/Vol] 1.81 10*3/uL Normal 1.00-4.00 [facility] Comment on above: Order Comment: Speci men Type: BLOOD SPECIMENOrdering Facility: [facility] Address: [address] [place] [address] Performed By: #### 5 7021-8 ####[facility]ORATORYCLIA [id number] [address] Lymphocytes/100 WBC (Bld) 15.7 % Normal [facility] Comment on above: Order Comment: Speci men Type: BLOOD SPECIMENOrdering Facility: [facility] Address: [address] [place] [address] Performed By: #### 5 7021-8 ####[facility]ORATORYCLIA [id number] [address] STATES [facility] MCH (RBC) [Entitic mass] 28.6 pg Normal 26.0-34.0 [facility] Comment on above: Order Comment: Speci men Type: BLOOD SPECIMENOrdering Facility: [facility] Address: [address] [place] [address] Performed By: #### 5 7021-8 ####[facility]ORATORYCLIA [id number] [address] MCHC (RBC) [Mass/Vol] 30.8 g/dL Normal 30.5-36.0 [facility] Comment on above: Order Comment: Speci men Type: BLOOD SPECIMENOrdering Facility: [facility] Address: [address] [place] [address] Performed By: #### 5 7021-8 ####[facility]ORATORYCLIA [id number] [address] [place] MCV (RBC) [Entitic vol] 92.9 fL Normal 80.0-100.0 [facility] Comment on above: Order Comment: Speci men Type: BLOOD SPECIMENOrdering Facility: [facility] Address: [address] [place] [address] Performed By: #### 5 7021-8 ####[facility]ORATORYCLIA [id number] [address] [place] Monocytes (Bld) [#/Vol] 0.63 10*3/uL Normal <0.87 [facility] Comment on above: Order Comment: Speci men Type: BLOOD SPECIMENOrdering Facility: [facility] Address: [address] [place] [address] Performed By: #### 5 7021-8 ####[facility]ORATORYCLIA [id number] [address] Monocytes/100 WBC (Bld) 5.5 % Normal [facility] Comment on above: Order Comment: Speci men Type: BLOOD SPECIMENOrdering Facility: [facility] Address: [address] [place] [address] Performed By: #### 5 7021-8 ####[facility]ORATORYCLIA [id number] [address] [place] Neutrophils (Bld) [#/Vol] 8.78 10*3/uL High 1.45-7.50 [facility] Comment on above: Order Comment: Speci men Type: BLOOD SPECIMENOrdering Facility: [facility] Address: [address] [place] [address] Performed By: #### 5 7021-8 ####[facility]ORATORYCLIA [id number] [address] [place] Neutrophils/100 WBC (Bld) 76.3 % Normal [facility] Comment on above: Order Comment: Speci men Type: BLOOD SPECIMENOrdering Facility: [facility] Address: [address] [place] [address] Performed By: #### 5 7021-8 ####[facility]ORATORYCLIA [id number] [address] [place] Nucleated RBC (Bld) [#/Vol] 10*3/uL Normal <0.01 [facility] Comment on above: Order Comment: Speci men Type: BLOOD SPECIMENOrdering Facility: [facility] Address: [address] [place] [address] Performed By: #### 5 7021-8 ####[facility]ORATORYCLIA [id number] [address] Nucleated RBC/100 WBC (Bld) [Ratio] 0.0 /100 WBC Normal [facility] Comment on above: Order Comment: Speci men Type: BLOOD SPECIMENOrdering Facility: [facility] Address: [address] [place] [address] Performed By: #### 5 7021-8 ####[facility]ORATORYCLIA [id number] [address] [place] Platelet mean volume (Bld) [Entitic vol] 9.9 fL Normal 9.0-12.7 [facility] Comment on above: Order Comment: Speci men Type: BLOOD SPECIMENOrdering Facility: [facility] Address: [address] [place] [address] Performed By: #### 5 7021-8 ####[facility]ORATORYCLIA [id number] [address] [place] Platelets (Bld) [#/Vol] 230 10*3/uL Normal 150-400 [facility] Comment on above: Order Comment: Speci men Type: BLOOD SPECIMENOrdering Facility: [facility] Address: [address] [place] [address] Performed By: #### 5 7021-8 ####[facility]ORATORYCLIA [id number] [address] RBC (Bld) [#/Vol] 2.97 10*6/uL Low 4.20-6.00 [facility] Comment on above: Order Comment: Speci men Type: BLOOD SPECIMENOrdering Facility: [facility] Address: [address] [place] [address] Performed By: #### 5 7021-8 ####[facility]ORATORYCLIA [id number] [address] WBC (Bld) [#/Vol] 11.50 10*3/uL High 3.70-11.00 [facility] Comment on above: Order Comment: Speci men Type: BLOOD SPECIMENOrdering Facility: [facility] Address: [address] [place] [address] Performed By: #### 5 7021-8 ####[facility]ORATORYCLIA [id number] [address] CONSULT PROGon 08-06-2021 CONSULT PROG Normal [facility] Magnesium SerPl-mCncon 08-06 Magnesium [Mass/Vol] 1.9 mg/dL Normal 1.7-2.3 [facility] Comment on above: Order Comment: Speci men Type: BLOOD SPECIMENOrdering Facility: [facility] Address: [address] [place] [address] Performed By: #### 2 4321-2, 2777-1, 43246-4 ####[facility]ORATORYCLIA [id number] [address] NURSING PROGon 08-06-2021 NURSING PROG Normal [facility] OPERATIVE NOon 08-06-2021 OPERATIVE NO Normal [facility] Phosphate SerPl-mCncon 08-06 Phosphate [Mass/Vol] 4.2 mg/dL Normal 2.7-4.8 [facility] Comment on above: Order Comment: Speci men Type: BLOOD SPECIMENOrdering Facility: [facility] Address: [address] [place], [place] [phone] Performed By: #### 2 4321-2, 2777-1, 17615-8 ####[facility]ORATORYCLIA [id number] [place] [address] [place] ALLIED HEALTHon 08-05-2021 [...] Performed By: #### 3 2355-0 ####[facility]ATORYCLIA [id number] [place] [address] [place] Bacteria Ur Culton Bacteria identified Cx Nom (U) CULTURE, URINE: No growth (<1,000 CFU/ml) Normal [facility] Comment on above: Performed By: #### 6 30-4 ####[facility]ATORYCLIA [id number] [place] [address] [place] Basic metabolic 2000 panelon 08-05-2021 Anion gap [Moles/Vol] 7 mmol/L Low 9-18 [facility] Comment on above: Order Comment: Speci men Type: BLOOD SPECIMENOrdering Facility: [facility] Address: [address] [place] [address] Performed By: #### 2 4321-2 ####[facility]ATORYCLIA [id number] [place] [address] [place] Calcium [Mass/Vol] 9.5 mg/dL Normal 8.5-10.2 [facility] Comment on above: Order Comment: Speci men Type: BLOOD SPECIMENOrdering Facility: [facility] Address: [address] [address] Performed By: #### 2 4321-2 ####[facility]ORATORYCLIA [id number] [address] [place] Chloride [Moles/Vol] 97 mmol/L Normal 97-105 [facility] Comment on above: Order Comment: Speci men Type: BLOOD SPECIMENOrdering Facility: [facility] Address: [address] [place] [address] Performed By: #### 2 4321-2 ####[facility]ATORYCLIA [id number] [address] [place] CO2 [Moles/Vol] 30 mmol/L Normal 22-30 [facility] Comment on above: Order Comment: Speci men Type: BLOOD SPECIMENOrdering Facility: [facility] Address: [address] [place] [address] Performed By: #### 2 4321-2 ####[facility]ATORYCLIA [id number] [address] [place] Creatinine [Mass/Vol] 0.61 mg/dL Low 0.73-1.22 [facility] Comment on above: Order Comment: Speci men Type: BLOOD SPECIMENOrdering Facility: [facility] Address: [address] [place] [address] Performed By: #### 2 4321-2 ####[facility]ATORYCLIA [id number] [address] ESTIMATED GLOMERULAR FILTRATION RATE 104 mL/min/1.73m??? Normal >=60 [facility] Comment on above: Order Comment: Speci men Type: BLOOD SPECIMENOrdering Facility: [facility] Address: [address] [place] [address] Result Comment: Luzmaria mated Glomerular Filtration Rate [...] Performed By: #### 2 4321-2 ####[facility]ATORYCLIA [id number] [place] [address] [place] Glucose [Mass/Vol] 124 mg/dL High 74-99 [facility] Comment on above: Order Comment: Shira feldman Type: BLOOD SPECIMENOrdering Facility: [facility] Address: [address] [place], [place] [phone] Result Comment: The [place] [employer] (ADA) provides guidance for cutoff [...] Standards of Medical Care in Diabetes 2016, [place] [employer]. Diabetes Care. 2016.39(Suppl 1). Performed By: #### 2 4321-2 ####[facility]ORATORYCLIA [id number] [place] [address] [place] Potassium [Moles/Vol] 4.9 mmol/L Normal 3.7-5.1 [facility] Comment on above: Order Comment: Shira feldman Type: BLOOD SPECIMENOrdering Facility: [facility] Address: [address] [place] [address] Performed By: #### 2 4321-2 ####[facility]ORATORYCLIA [id number] [place] [address] [place] Sodium [Moles/Vol] 134 mmol/L Low 136-144 [facility] Comment on above: Order Comment: Shira feldman Type: BLOOD SPECIMENOrdering Facility: [facility] Address: [address] [place] [address] Performed By: #### 2 4321-2 ####[facility]ORATORYCLIA [id number] [address] [place] [facility] Urea nitrogen [Mass/Vol] 40 mg/dL High 9-24 [facility] Comment on above: Order Comment: Speci men Type: BLOOD SPECIMENOrdering Facility: [facility] Address: [address] [place] [address] Performed By: #### 2 4321-2 ####[facility]ATORYCLIA [id number] [place] [address] [place] CBC W Auto Differential pane l (Bld)on 08-05-2021 Basophils (Bld) [#/Vol] 0.04 10*3/uL Normal <0.11 [facility] Comment on above: Order Comment: Speci men Type: BLOOD SPECIMENOrdering Facility: [facility] Address: [address] [place] [address] Performed By: #### 5 7021-8 ####[facility]ATORYCLIA [id number] [address] [place] Basophils/100 WBC (Bld) 0.3 % Normal [facility] Comment on above: Order Comment: Speci men Type: BLOOD SPECIMENOrdering Facility: [facility] Address: [address] [place] [address] Performed By: #### 5 7021-8 ####[facility]ATORYCLIA [id number] [address] [place] [facility] Differential cell count method Nom (Bld) Auto Normal [facility] Comment on above: Order Comment: Speci men Type: BLOOD SPECIMENOrdering Facility: [facility] Address: [address] [place] [address] Performed By: #### 5 7021-8 ####[facility]ATORYCLIA [id number] [place] [address] [place] Eosinophils (Bld) [#/Vol] 0.42 10*3/uL Normal <0.46 [facility] Comment on above: Order Comment: Speci men Type: BLOOD SPECIMENOrdering Facility: [facility] Address: [address] [place] [address] Performed By: #### 5 7021-8 ####[facility]ATORYCLIA [id number] [address] Eosinophils/100 WBC (Bld) 3.6 % Normal [facility] Comment on above: Order Comment: Speci men Type: BLOOD SPECIMENOrdering Facility: [facility] Address: [address] [place] [address] Performed By: #### 5 7021-8 ####[facility]ATORYCLIA [id number] [address] [place] Erythrocyte distribution width (RBC) [Ratio] 17.9 % High 11.5-15.0 [facility] Comment on above: Order Comment: Speci men Type: BLOOD SPECIMENOrdering Facility: [facility] Address: [address] [place] [address] Performed By: #### 5 7021-8 ####[facility]ATORYCLIA [id number] [address] [place] Hematocrit (Bld) [Volume fraction] 30.8 % Low 39.0-51.0 [facility] Comment on above: Order Comment: Speci men Type: BLOOD SPECIMENOrdering Facility: [facility] Address: [address] [place] [address] Performed By: #### 5 7021-8 ####[facility]ORYCLIA [id number] [address] [place] Hemoglobin (Bld) [Mass/Vol] 9.6 g/dL Low 13.0-17.0 [facility] Comment on above: Order Comment: Speci men Type: BLOOD SPECIMENOrdering Facility: [facility] Address: [address] [place] [address] Performed By: #### 5 7021-8 ####[facility] LABORATORYCLIA [id number] [address] IMMATURE GRAN % 0.5 % Normal [facility] Comment on above: Order Comment: Speci men Type: BLOOD SPECIMENOrdering Facility: [facility] Address: [address] [place] [address] Performed By: #### 5 7021-8 ####[facility] LABORATORYCLIA [id number] [address] IMMATURE GRAN ABS 0.06 k/uL Normal <0.10 [facility] Comment on above: Order Comment: Speci men Type: BLOOD SPECIMENOrdering Facility: [facility] Address: [address] [place] [address] Performed By: #### 5 7021-8 ####[facility] LABORATORYCLIA [id number] [address] [place] Lymphocytes (Bld) [#/Vol] 2.17 10*3/uL Normal 1.00-4.00 [facility] Comment on above: Order Comment: Speci men Type: BLOOD SPECIMENOrdering Facility: [facility] Address: [address] [place] [address] Performed By: #### 5 7021-8 ####[facility] LABORATORYCLIA [id number] [address] Lymphocytes/100 WBC (Bld) 18.7 % Normal [facility] Comment on above: Order Comment: Speci men Type: BLOOD SPECIMENOrdering Facility: [facility] Address: [address] [place] [address] Performed By: #### 5 7021-8 ####[facility] LABORATORYCLIA [id number] [address] [place] MCH (RBC) [Entitic mass] 28.9 pg Normal 26.0-34.0 [facility] Comment on above: Order Comment: Speci men Type: BLOOD SPECIMENOrdering Facility: [facility] Address: [address] [place] [address] Performed By: #### 5 7021-8 ####[facility] LABORATORYCLIA [id number] [address] STATES [facility] MCHC (RBC) [Mass/Vol] 31.2 g/dL Normal 30.5-36.0 [facility] Comment on above: Order Comment: Speci men Type: BLOOD SPECIMENOrdering Facility: [facility] Address: [address] [place] [address] Performed By: #### 5 7021-8 ####[facility]ORATORYCLIA [id number] [address] MCV (RBC) [Entitic vol] 92.8 fL Normal 80.0-100.0 [facility] Comment on above: Order Comment: Speci men Type: BLOOD SPECIMENOrdering Facility: [facility] Address: [address] [place] [address] Performed By: #### 5 7021-8 ####[facility]ORATORYCLIA [id number] [address] STATES OF [facility] Monocytes (Bld) [#/Vol] 0.71 10*3/uL Normal <0.87 [facility] Comment on above: Order Comment: Speci men Type: BLOOD SPECIMENOrdering Facility: [facility] Address: [address] [place] [address] Performed By: #### 5 7021-8 ####[facility]ORATORYCLIA [id number] [address] Monocytes/100 WBC (Bld) 6.1 % Normal [facility] Comment on above: Order Comment: Speci men Type: BLOOD SPECIMENOrdering Facility: [facility] Address: [address] [place] [address] Performed By: #### 5 7021-8 ####[facility] LABORATORYCLIA [id number] [address] [place] Neutrophils (Bld) [#/Vol] 8.19 10*3/uL High 1.45-7.50 [facility] Comment on above: Order Comment: Speci men Type: BLOOD SPECIMENOrdering Facility: [facility] Address: [address] [address] Performed By: #### 5 7021-8 ####[facility]ORATORYCLIA [id number] [address] Neutrophils/100 WBC (Bld) 70.8 % Normal [facility] Comment on above: Order Comment: Speci men Type: BLOOD SPECIMENOrdering Facility: [facility] Address: [address] [place] [address] Performed By: #### 5 7021-8 ####[facility]ORATORYCLIA [id number] [address] Nucleated RBC (Bld) [#/Vol] 10*3/uL Normal <0.01 [facility] Comment on above: Order Comment: Speci men Type: BLOOD SPECIMENOrdering Facility: [facility] Address: [address] [place] [address] Performed By: #### 5 7021-8 ####[facility]ORATORYCLIA [id number] [address] Nucleated RBC/100 WBC (Bld) [Ratio] 0.0 /100 WBC Normal [facility] Comment on above: Order Comment: Speci men Type: BLOOD SPECIMENOrdering Facility: [facility] Address: [address] [place] [address] Performed By: #### 5 7021-8 ####[facility]ORATORYCLIA [id number] [address] Platelet mean volume (Bld) [Entitic vol] 9.6 fL Normal 9.0-12.7 [facility] Comment on above: Order Comment: Speci men Type: BLOOD SPECIMENOrdering Facility: [facility] Address: [address] [place] [address] Performed By: #### 5 7021-8 ####[facility]ORATORYCLIA [id number] [address] Platelets (Bld) [#/Vol] 339 10*3/uL Normal 150-400 [facility] Comment on above: Order Comment: Speci men Type: BLOOD SPECIMENOrdering Facility: [facility] Address: [address] [place] [address] Performed By: #### 5 7021-8 ####[facility] LABORATORYCLIA [id number] [place] [address] [place] RBC (Bld) [#/Vol] 3.32 10*6/uL Low 4.20-6.00 [facility] Comment on above: Order Comment: Speci men Type: BLOOD SPECIMENOrdering Facility: [facility] Address: [address] [place] [address] Performed By: #### 5 7021-8 ####[facility]ORATORYCLIA [id number] [address] WBC (Bld) [#/Vol] 11.59 10*3/uL High 3.70-11.00 [facility] Comment on above: Order Comment: Speci men Type: BLOOD SPECIMENOrdering Facility: [facility] Address: [address] [place] [address] Performed By: #### 5 7021-8 ####[facility] LABORATORYCLIA [id number] [address] [place] BRAIN WO IVCONon 08-06-[address] BRAIN WO IVCON Normal [facility] Magnesium SerPl-mCncon 08-05 Magnesium [Mass/Vol] 2.2 mg/dL Normal 1.7-2.3 [facility] Comment on above: Order Comment: Speci men Type: BLOOD SPECIMENOrdering Facility: [facility] Address: [address] [place] [address] Performed By: #### 1 9123-9, 2777-1 ####[facility]ORATORYCLIA [id number] [address] [place] NURSING PROGon 08-05-2021 NURSING PROG Normal [facility] NURSING PROG Normal [facility] NUTRITIONon 08-05-2021 NUTRITION Normal [facility] OPERATIVE NOon 08-05-2021 OPERATIVE NO Normal [facility] Phosphate SerPl-mCncon 08-05 Phosphate [Mass/Vol] 4.6 mg/dL Normal 2.7-4.8 [facility] Comment on above: Order Comment: Speci men Type: BLOOD SPECIMENOrdering Facility: [facility] Address: [address] [place] [address] Performed By: #### 1 9123-9, 2777-1 ####[facility]ORATORYCLIA [id number] [address] THERAPY NTon 08-05-2021 THERAPY NT Normal [facility] THERAPY NT Normal [facility] Urinalysis complete panel (U )on 08-05-2021 Bilirubin Ql (U) Negative Normal Negative [facility] Comment on above: Order Comment: Speci men Type: URINE SPECIMENOrdering Facility: [facility] Address: [address] [place] [address] Performed By: #### 2 4356-8 ####[facility]ORATORYCLIA [id number] [address] [place] Clarity (Unsp spec) Clear Normal Clear [facility] Comment on above: Order Comment: Speci men Type: URINE SPECIMENOrdering Facility: [facility] Address: [address] [place] [address] Performed By: #### 2 4356-8 ####[facility]ORATORYCLIA [id number] [address] [place] Color (U) Light Yellow Normal yellow [facility] Comment on above: Order Comment: Speci men Type: URINE SPECIMENOrdering Facility: [facility] Address: [address] [place] [address] Performed By: #### 2 4356-8 ####[facility]ORATORYCLIA [id number] [address] [place] Epithelial cells LM.HPF (Urine sed) [#/Area] Few Abnormal None Seen [facility] Comment on above: Order Comment: Speci men Type: URINE SPECIMENOrdering Facility: [facility] Address: [address] [place] [address] Performed By: #### 2 4356-8 ####[facility]ORATORYCLIA [id number] [address] Glucose Test strip (U) [Mass/Vol] Negative Normal Negative [facility] Comment on above: Order Comment: Speci men Type: URINE SPECIMENOrdering Facility: [facility] Address: [address] [place] [address] Performed By: #### 2 4356-8 ####[facility]ORATORYCLIA [id number] [address] Hemoglobin Ql (U) Negative Normal Negative [facility] Comment on above: Order Comment: Speci men Type: URINE SPECIMENOrdering Facility: [facility] Address: [address] [place] [address] Performed By: #### 2 4356-8 ####[facility]ORATORYCLIA [id number] [address] Hyaline casts (Urine sed) [#/Area] 1-3 /LPF Abnormal 0 /LPF [facility] Comment on above: Order Comment: Speci men Type: URINE SPECIMENOrdering Facility: [facility] Address: [address] [place] [address] Performed By: #### 2 4356-8 ####[facility]ORATORYCLIA [id number] [address] Ketones Ql (U) Negative Normal Negative [facility] Comment on above: Order Comment: Speci men Type: URINE SPECIMENOrdering Facility: [facility] Address: [address] [place] [address] Performed By: #### 2 4356-8 ####[facility] LABORATORYCLIA [id number] [place] [address] Leukocyte esterase Test strip Ql (U) Negative Normal Negative [facility] Comment on above: Order Comment: Speci men Type: URINE SPECIMENOrdering Facility: [facility] Address: [address] [place] [address] Performed By: #### 2 4356-8 ####[facility]ORATORYCLIA [id number] [address] STATES [facility] Nitrite Ql (U) Negative Normal Negative [facility] Comment on above: Order Comment: Speci men Type: URINE SPECIMENOrdering Facility: [facility] Address: [address] [place] [address] Performed By: #### 2 4356-8 ####[facility] LABORATORYCLIA [id number] [address] STATES [facility] pH (U) 6.0 [pH] Normal 5.0-8.0 [facility] Comment on above: Order Comment: Speci men Type: URINE SPECIMENOrdering Facility: [facility] Address: [address] [place] [address] Performed By: #### 2 4356-8 ####[facility]ORATORYCLIA [id number] [address] Protein (U) [Mass/Vol] Negative Normal Negative [facility] Comment on above: Order Comment: Speci men Type: URINE SPECIMENOrdering Facility: [facility] Address: [address] [place] [address] Performed By: #### 2 4356-8 ####[facility]ORATORYCLIA [id number] [address] RBC LM.HPF (Urine sed) [#/Area] 0-3 /HPF Normal 0-3 /HPF [facility] Comment on above: Order Comment: Speci men Type: URINE SPECIMENOrdering Facility: [facility] Address: [address] [place] [address] Performed By: #### 2 4356-8 ####[facility]ORATORYCLIA [id number] [address] [place] Specific gravity (U) [Rel density] 1.015 Normal 1.005-1.030 [facility] Comment on above: Order Comment: Speci men Type: URINE SPECIMENOrdering Facility: [facility] Address: [address] [place] [address] Performed By: #### 2 4356-8 ####[facility]ORATORYCLIA [id number] [address] [place] Urobilinogen Ql (U) Normal Normal Negative [facility] Comment on above: Order Comment: Speci men Type: URINE SPECIMENOrdering Facility: [facility] Address: [address] [place] [address] Performed By: #### 2 4356-8 ####[facility]ORATORYCLIA [id number] [address] [place] WBC LM.HPF (Urine sed) [#/Area] 0-5 /HPF Normal 0-5 /HPF [facility] Comment on above: Order Comment: Speci men Type: URINE SPECIMENOrdering Facility: [facility] Address: [address] [place] [address] Performed By: #### 2 4356-8 ####[facility]ORATORYCLIA [id number] [address] [place] XR ABDOMEN 1V SUPINEon 08-05 [...] on above: Performed By: #### 6 00-7 ####[facility]ORATORYCLIA [id number] [address] Bacteria identified Cx Nom (Bld) CULTURE, BLOOD: No growth 5 days Normal [facility] Comment on above: Performed By: #### 6 00-7 ####[facility]ORATORYCLIA [id number] [address] OF [facility] CBC W Auto Differential pane l (Bld)on 08-04-2021 Basophils (Bld) [#/Vol] 0.05 10*3/uL Normal <0.11 [facility] Comment on above: Order Comment: Speci men Type: BLOOD SPECIMENOrdering Facility: [facility] Address: [address] [place] [address] Performed By: #### 5 7021-8 ####[facility]ORATORYCLIA [id number] [address] Basophils/100 WBC (Bld) 0.4 % Normal [facility] Comment on above: Order Comment: Speci men Type: BLOOD SPECIMENOrdering Facility: [facility] Address: [address] [place] [address] Performed By: #### 5 7021-8 ####[facility]ORATORYCLIA [id number] [address] Differential cell count method Nom (Bld) Auto Normal [facility] Comment on above: Order Comment: Speci men Type: BLOOD SPECIMENOrdering Facility: [facility] Address: [address] [place] [address] Performed By: #### 5 7021-8 ####[facility] LABORATORYCLIA [id number] [address] OF [facility] Eosinophils (Bld) [#/Vol] 0.21 10*3/uL Normal <0.46 [facility] Comment on above: Order Comment: Speci men Type: BLOOD SPECIMENOrdering Facility: [facility] Address: [address] [place] [address] Performed By: #### 5 7021-8 ####[facility]ORATORYCLIA [id number] [address] STATES [facility] Eosinophils/100 WBC (Bld) 1.7 % Normal [facility] Comment on above: Order Comment: Speci men Type: BLOOD SPECIMENOrdering Facility: [facility] Address: [address] [place] [address] Performed By: #### 5 7021-8 ####[facility]ORATORYCLIA [id number] [address] [place] Erythrocyte distribution width (RBC) [Ratio] 18.1 % High 11.5-15.0 [facility] Comment on above: Order Comment: Speci men Type: BLOOD SPECIMENOrdering Facility: [facility] Address: [address] [place] [address] Performed By: #### 5 7021-8 ####[facility]ORATORYCLIA [id number] [address] Hematocrit (Bld) [Volume fraction] 32.0 % Low 39.0-51.0 [facility] Comment on above: Order Comment: Speci men Type: BLOOD SPECIMENOrdering Facility: [facility] Address: [address] [place] [address] Performed By: #### 5 7021-8 ####[facility]ORATORYCLIA [id number] [address] [place] Hemoglobin (Bld) [Mass/Vol] 10.0 g/dL Low 13.0-17.0 [facility] Comment on above: Order Comment: Speci men Type: BLOOD SPECIMENOrdering Facility: [facility] Address: [address] [place] [address] Performed By: #### 5 7021-8 ####[facility]ORATORYCLIA [id number] [address] [place] IMMATURE GRAN % 0.6 % Normal [facility] Comment on above: Order Comment: Speci men Type: BLOOD SPECIMENOrdering Facility: [facility] Address: [address] [place] [address] Performed By: #### 5 7021-8 ####[facility]ORATORYCLIA [id number] [address] IMMATURE GRAN ABS 0.08 k/uL Normal <0.10 [facility] Comment on above: Order Comment: Speci men Type: BLOOD SPECIMENOrdering Facility: [facility] Address: [address] [place] [address] Performed By: #### 5 7021-8 ####[facility]ATORYCLIA [id number] [address] Lymphocytes (Bld) [#/Vol] 2.55 10*3/uL Normal 1.00-4.00 [facility] Comment on above: Order Comment: Speci men Type: BLOOD SPECIMENOrdering Facility: [facility] Address: [address] [place] [address] Performed By: #### 5 7021-8 ####[facility]ORATORYCLIA [id number] [address] Lymphocytes/100 WBC (Bld) 20.5 % Normal [facility] Comment on above: Order Comment: Speci men Type: BLOOD SPECIMENOrdering Facility: [facility] Address: [address] [place] [address] Performed By: #### 5 7021-8 ####[facility]ORATORYCLIA [id number] [address] MCH (RBC) [Entitic mass] 28.9 pg Normal 26.0-34.0 [facility] Comment on above: Order Comment: Speci men Type: BLOOD SPECIMENOrdering Facility: [facility] Address: [address] [place] [address] Performed By: #### 5 7021-8 ####[facility]ORATORYCLIA [id number] [address] MCHC (RBC) [Mass/Vol] 31.3 g/dL Normal 30.5-36.0 [facility] Comment on above: Order Comment: Speci men Type: BLOOD SPECIMENOrdering Facility: [facility] Address: [address] [place] [address] Performed By: #### 5 7021-8 ####[facility]ORATORYCLIA [id number] [address] [place] MCV (RBC) [Entitic vol] 92.5 fL Normal 80.0-100.0 [facility] Comment on above: Order Comment: Speci men Type: BLOOD SPECIMENOrdering Facility: [facility] Address: [address] [place] [address] Performed By: #### 5 7021-8 ####[facility]ORATORYCLIA [id number] [address] [place] Monocytes (Bld) [#/Vol] 0.85 10*3/uL Normal <0.87 [facility] Comment on above: Order Comment: Speci men Type: BLOOD SPECIMENOrdering Facility: [facility] Address: [address] [place] [address] Performed By: #### 5 7021-8 ####[facility]ORATORYCLIA [id number] [address] OF [facility] Monocytes/100 WBC (Bld) 6.8 % Normal [facility] Comment on above: Order Comment: Speci men Type: BLOOD SPECIMENOrdering Facility: [facility] Address: [address] [place] [address] Performed By: #### 5 7021-8 ####[facility]ORATORYCLIA [id number] [address] [place] Neutrophils (Bld) [#/Vol] 8.68 10*3/uL High 1.45-7.50 [facility] Comment on above: Order Comment: Speci men Type: BLOOD SPECIMENOrdering Facility: [facility] Address: [address] [place] [address] Performed By: #### 5 7021-8 ####[facility]ORATORYCLIA [id number] [address] Neutrophils/100 WBC (Bld) 70.0 % Normal [facility] Comment on above: Order Comment: Speci men Type: BLOOD SPECIMENOrdering Facility: [facility] Address: [address] [place] [address] Performed By: #### 5 7021-8 ####[facility]ORATORYCLIA [id number] [address] Nucleated RBC (Bld) [#/Vol] 10*3/uL Normal <0.01 [facility] Comment on above: Order Comment: Speci men Type: BLOOD SPECIMENOrdering Facility: [facility] Address: [address] [place] [address] Performed By: #### 5 7021-8 ####[facility]ORATORYCLIA [id number] [address] STATES [facility] Nucleated RBC/100 WBC (Bld) [Ratio] 0.0 /100 WBC Normal [facility] Comment on above: Order Comment: Speci men Type: BLOOD SPECIMENOrdering Facility: [facility] Address: [address] [place] [address] Performed By: #### 5 7021-8 ####[facility]ORATORYCLIA [id number] [address] [place] Platelet mean volume (Bld) [Entitic vol] 10.0 fL Normal 9.0-12.7 [facility] Comment on above: Order Comment: Speci men Type: BLOOD SPECIMENOrdering Facility: [facility] Address: [address] [place] [address] Performed By: #### 5 7021-8 ####[facility]ORATORYCLIA [id number] [address] [place] Platelets (Bld) [#/Vol] 393 10*3/uL Normal 150-400 [facility] Comment on above: Order Comment: Speci men Type: BLOOD SPECIMENOrdering Facility: [facility] Address: [address] [place] [address] Performed By: #### 5 7021-8 ####[facility]ORATORYCLIA [id number] [address] RBC (Bld) [#/Vol] 3.46 10*6/uL Low 4.20-6.00 [facility] Comment on above: Order Comment: Speci men Type: BLOOD SPECIMENOrdering Facility: [facility] Address: [address] [place] [address] Performed By: #### 5 7021-8 ####[facility] LABORATORYCLIA [id number] [address] WBC (Bld) [#/Vol] 12.42 10*3/uL High 3.70-11.00 [facility] Comment on above: Order Comment: Speci men Type: BLOOD SPECIMENOrdering Facility: [facility] Address: [address] [place] [address] Performed By: #### 5 7021-8 ####[facility] LABORATORYCLIA [id number] [address] BRAIN WO IVCONon 08-05-[address] BRAIN WO IVCON Normal [facility] Lactate (Bld) [Moles/Vol]on 08-04-2021 Lactate [Moles/Vol] 1.4 mmol/L Normal 0.5-2.2 [facility] Comment on above: Order Comment: Speci men Type: BLOOD SPECIMENOrdering Facility: [facility] Address: [address] [place] [address] Performed By: #### 3 2693-4 ####[facility]ORATORYCLIA [id number] [address] PROCALCITONIN (LAB)on 2021 Procalcitonin [Mass/Vol] 0.08 ng/mL Normal <0.09 [facility] Comment on above: Order Comment: Speci men Type: BLOOD SPECIMENOrdering Facility: [facility] Address: [facility] [place] [address] Result Comment: For a guided interpretation of test results, please visit the Change in Procalcitonin Calculator, [email or web address]. Performed By: #### P ROCAL ####[facility] LABORATORYCLIA [id number] [address] Prealbumin [Mass/Vol]on 07-07 Prealbumin Nephelometry [Mass/Vol] 35 mg/dL Normal [facility] Comment on above: Order Comment: Speci men Type: BLOOD SPECIMENOrdering Facility: [facility] Address: [address] [place] [address] Performed By: #### 1 4338-8 ####[facility] LABORATORYCLIA [id number] [address] SARS-CoV-2 RNA Resp Ql MEGAN+p robeon 08-04-2021 SARS-CoV-2 (COVID-19) RNA MEGAN+probe Ql (Resp) COVID 19 RESULT: SARS-CoV-2 (Agent of COVID-19) Not Detected by RT-PCR or equivalent method. This test has been authorized by FDA under an Emergency Use Authorization (EUA). Normal [facility] Comment on above: Performed By: #### 9 4500-6 ####[facility] LABORATORYCLIA [id number] [address] STATES OF [facility] TYPE AND SCREENon 08-04-2021 ABO O Normal [facility] Comment on above: Order Comment: Speci men Type: BLOOD SPECIMENOrdering Facility: [facility] Address: [address] [address] Performed By: #### T SCR ####[facility] BLOOD BANKCLIA [id number] [address] HISTORICAL AB SCR STATUS Negative Normal [facility] Comment on above: Order Comment: Speci men Type: BLOOD SPECIMENOrdering Facility: [facility] Address: [address] [address] Performed By: #### T SCR ####[facility] BLOOD BANKCLIA [id number] [address] Rh Nom (Bld) Positive Normal [facility] Comment on above: Order Comment: Speci men Type: BLOOD SPECIMENOrdering Facility: [facility] Address: [address] [place] [address] Performed By: #### T SCR ####[facility] BLOOD BANKCLIA [id number] [address] TYPE AND SCREEN EXPIRATION 08/07/2021 23:59 Normal [facility] Comment on above: Order Comment: Speci men Type: BLOOD SPECIMENOrdering Facility: [facility] Address: [address] [place] [address] Performed By: #### T SCR ####[facility] BLOOD BANKCLIA [id number] [address] aPTT PPPon 08-04-2021 aPTT Coag (PPP) [Time] 51.8 s High 23.0-32.4 [facility] Comment on above: Order Comment: Speci men Type: BLOOD SPECIMENOrdering Facility: [facility] Address: [address] [place] [address] Performed By: #### 1 4979-9 ####[facility] LABORATORYCLIA [id number] [address] Basic metabolic 2000 panelon 08-03-2021 Anion gap [Moles/Vol] 9 mmol/L Normal 9-18 [facility] Comment on above: Order Comment: Speci men Type: BLOOD SPECIMENOrdering Facility: [facility] Address: [address] [place] [address] Performed By: #### 2 4321-2, 77912-1, 2777-1 ####[facility] LABORATORYCLIA [id number] [address] Calcium [Mass/Vol] 9.3 mg/dL Normal 8.5-10.2 [facility] Comment on above: Order Comment: Speci men Type: BLOOD SPECIMENOrdering Facility: [facility] Address: [address] [place] [address] Performed By: #### 2 4321-2, , 2776-05 ####[facility] LABORATORYCLIA [id number] [place] [address] [place] Chloride [Moles/Vol] 97 mmol/L Normal 97-105 [facility] Comment on above: Order Comment: Speci men Type: BLOOD SPECIMENOrdering Facility: [facility] Address: [address] [place] [address] Performed By: #### 2 4321-2, , 2776-05 ####[facility] LABORATORYCLIA [id number] [place] [address] [place] CO2 [Moles/Vol] 27 mmol/L Normal 22-30 [facility] Comment on above: Order Comment: Speci men Type: BLOOD SPECIMENOrdering Facility: [facility] Address: [address] [place] [address] Performed By: #### 2 4321-2, , 2776-05 ####[facility] LABORATORYCLIA [id number] [address] [place] Creatinine [Mass/Vol] 0.63 mg/dL Low 0.73-1.22 [facility] Comment on above: Order Comment: Speci men Type: BLOOD SPECIMENOrdering Facility: [facility] Address: [address] [place] [address] Performed By: #### 2 4321-2, , 2776-05 ####[facility] LABORATORYCLIA [id number] [address] ESTIMATED GLOMERULAR FILTRATION RATE 103 mL/min/1.73m??? Normal >=60 [facility] Comment on above: Order Comment: Speci men Type: BLOOD SPECIMENOrdering Facility: [facility] Address: [address] [place] [address] Result Comment: Luzmaria mated Glomerular Filtration Rate [...] #### 2 4321-2, , 2776-05 ####[facility] [id number] [place] [address] [place] Glucose [Mass/Vol] 136 mg/dL High 74-99 [facility] Comment on above: Order Comment: Shira feldman Type: BLOOD SPECIMENOrdering Facility: [facility] Address: [address] [place] [address] Result Comment: The [place] [employer] (ADA) provides guidance for cutoff [...] Standards of Medical Care in Diabetes 2016, [place] [employer]. Diabetes Care. 2016.39(Suppl 1). Performed By: #### 2 4321-2, , 2776-05 ####[facility] LABORATORYCLIA [id number] [address] [id number] [place] Potassium [Moles/Vol] 4.1 mmol/L Normal 3.7-5.1 [facility] Comment on above: Order Comment: Shira feldman Type: BLOOD SPECIMENOrdering Facility: [facility] Address: [address] [id number] Performed By: #### 2 4321-2, , 2776-05 ####[facility] LABORATORYCLIA [id number] [place] [address] [place] Sodium [Moles/Vol] 133 mmol/L Low 136-144 [facility] Comment on above: Order Comment: Speci men Type: BLOOD SPECIMENOrdering Facility: [facility] Address: [address] [place] [address] Performed By: #### 2 4321-2, 99455-0, 2777-1 ####[facility] LABORATORYCLIA [id number] [address] [place] Urea nitrogen [Mass/Vol] 40 mg/dL High 9-24 [facility] Comment on above: Order Comment: Speci men Type: BLOOD SPECIMENOrdering Facility: [facility] Address: [address] [place] [address] Performed By: #### 2 4321-2, , 2777 ####[facility] LABORATORYCLIA [id number] [address] OF [facility] CASE MANAGEMon 08-03-2021 CASE MANAGEM Normal [facility] CBC W Auto Differential pane l (Bld)on 08-03-2021 Basophils (Bld) [#/Vol] 0.06 10*3/uL Normal <0.11 [facility] Comment on above: Order Comment: Speci men Type: BLOOD SPECIMENOrdering Facility: [facility] Address: [address] [place] [address] Performed By: #### 5 7021-8 ####[facility] LABORATORYCLIA [id number] [address] [place] Basophils/100 WBC (Bld) 0.5 % Normal [facility] Comment on above: Order Comment: Speci men Type: BLOOD SPECIMENOrdering Facility: [facility] Address: [address] [place] [address] Performed By: #### 5 7021-8 ####[facility] LABORATORYCLIA [id number] [place] [address] [place] Differential cell count method Nom (Bld) Auto Normal [facility] Comment on above: Order Comment: Speci men Type: BLOOD SPECIMENOrdering Facility: [facility] Address: [address] [place] [address] Performed By: #### 5 7021-8 ####[facility] LABORATORYCLIA [id number] [address] [place] Eosinophils (Bld) [#/Vol] 0.23 10*3/uL Normal <0.46 [facility] Comment on above: Order Comment: Speci men Type: BLOOD SPECIMENOrdering Facility: [facility] Address: [address] [place] [address] Performed By: #### 5 7021-8 ####[facility] LABORATORYCLIA [id number] [address] Eosinophils/100 WBC (Bld) 1.8 % Normal [facility] Comment on above: Order Comment: Speci men Type: BLOOD SPECIMENOrdering Facility: [facility] Address: [address] [place] [address] Performed By: #### 5 7021-8 ####[facility] LABORATORYCLIA [id number] [address] Erythrocyte distribution width (RBC) [Ratio] 17.6 % High 11.5-15.0 [facility] Comment on above: Order Comment: Speci men Type: BLOOD SPECIMENOrdering Facility: [facility] Address: [address] [place] [address] Performed By: #### 5 7021-8 ####[facility] LABORATORYCLIA [id number] [address] Hematocrit (Bld) [Volume fraction] 30.7 % Low 39.0-51.0 [facility] Comment on above: Order Comment: Speci men Type: BLOOD SPECIMENOrdering Facility: [facility] Address: [address] [place] [address] Performed By: #### 5 7021-8 ####[facility] LABORATORYCLIA [id number] [address] OF [facility] Hemoglobin (Bld) [Mass/Vol] 9.3 g/dL Low 13.0-17.0 [facility] Comment on above: Order Comment: Speci men Type: BLOOD SPECIMENOrdering Facility: [facility] Address: [address] [place] [address] Performed By: #### 5 7021-8 ####[facility] LABORATORYCLIA [id number] [address] IMMATURE GRAN % 0.6 % Normal [facility] Comment on above: Order Comment: Speci men Type: BLOOD SPECIMENOrdering Facility: [facility] Address: [address] [place] [address] Performed By: #### 5 7021-8 ####[facility] LABORATORYCLIA [id number] [address] IMMATURE GRAN ABS 0.08 k/uL Normal <0.10 [facility] Comment on above: Order Comment: Speci men Type: BLOOD SPECIMENOrdering Facility: [facility] Address: [address] [place] [address] Performed By: #### 5 7021-8 ####[facility] LABORATORYCLIA [id number] [address] Lymphocytes (Bld) [#/Vol] 2.45 10*3/uL Normal 1.00-4.00 [facility] Comment on above: Order Comment: Speci men Type: BLOOD SPECIMENOrdering Facility: [facility] Address: [address] [place] [address] Performed By: #### 5 7021-8 ####[facility] LABORATORYCLIA [id number] [address] Lymphocytes/100 WBC (Bld) 19.7 % Normal [facility] Comment on above: Order Comment: Speci men Type: BLOOD SPECIMENOrdering Facility: [facility] Address: [address] [place] [address] Performed By: #### 5 7021-8 ####[facility] LABORATORYCLIA [id number] [address] MCH (RBC) [Entitic mass] 28.2 pg Normal 26.0-34.0 [facility] Comment on above: Order Comment: Speci men Type: BLOOD SPECIMENOrdering Facility: [facility] Address: [address] [place] [address] Performed By: #### 5 7021-8 ####[facility] LABORATORYCLIA [id number] [address] MCHC (RBC) [Mass/Vol] 30.3 g/dL Low 30.5-36.0 [facility] Comment on above: Order Comment: Speci men Type: BLOOD SPECIMENOrdering Facility: [facility] Address: [address] [place] [address] Performed By: #### 5 7021-8 ####[facility] LABORATORYCLIA [id number] [address] MCV (RBC) [Entitic vol] 93.0 fL Normal 80.0-100.0 [facility] Comment on above: Order Comment: Speci men Type: BLOOD SPECIMENOrdering Facility: [facility] Address: [address] [place] [address] Performed By: #### 5 7021-8 ####[facility] LABORATORYCLIA [id number] [address] Monocytes (Bld) [#/Vol] 0.72 10*3/uL Normal <0.87 [facility] Comment on above: Order Comment: Speci men Type: BLOOD SPECIMENOrdering Facility: [facility] Address: [address] [place] [address] Performed By: #### 5 7021-8 ####[facility] LABORATORYCLIA [id number] [address] Monocytes/100 WBC (Bld) 5.8 % Normal [facility] Comment on above: Order Comment: Speci men Type: BLOOD SPECIMENOrdering Facility: [facility] Address: [address] [address] Performed By: #### 5 7021-8 ####[facility] LABORATORYCLIA [id number] [address] [place] Neutrophils (Bld) [#/Vol] 8.92 10*3/uL High 1.45-7.50 [facility] Comment on above: Order Comment: Speci men Type: BLOOD SPECIMENOrdering Facility: [facility] Address: [address] [place] [address] Performed By: #### 5 7021-8 ####[facility] LABORATORYCLIA [id number] [address] [place] Neutrophils/100 WBC (Bld) 71.6 % Normal [facility] Comment on above: Order Comment: Speci men Type: BLOOD SPECIMENOrdering Facility: [facility] Address: [address] [place] [address] Performed By: #### 5 7021-8 ####[facility] LABORATORYCLIA [id number] [address] [place] Nucleated RBC (Bld) [#/Vol] 10*3/uL Normal <0.01 [facility] Comment on above: Order Comment: Speci men Type: BLOOD SPECIMENOrdering Facility: [facility] Address: [address] [place] [address] Performed By: #### 5 7021-8 ####[facility] LABORATORYCLIA [id number] [address] [place] Nucleated RBC/100 WBC (Bld) [Ratio] 0.0 /100 WBC Normal [facility] Comment on above: Order Comment: Speci men Type: BLOOD SPECIMENOrdering Facility: [facility] Address: [address] [place] [address] Performed By: #### 5 7021-8 ####[facility] LABORATORYCLIA [id number] [place] [address] Platelet mean volume (Bld) [Entitic vol] 10.2 fL Normal 9.0-12.7 [facility] Comment on above: Order Comment: Speci men Type: BLOOD SPECIMENOrdering Facility: [facility] Address: [address] [place] [address] Performed By: #### 5 7021-8 ####[facility] LABORATORYCLIA [id number] [address] [place] Platelets (Bld) [#/Vol] 352 10*3/uL Normal 150-400 [facility] Comment on above: Order Comment: Speci men Type: BLOOD SPECIMENOrdering Facility: [facility] Address: [address] [place] [address] Performed By: #### 5 7021-8 ####[facility] LABORATORYCLIA [id number] [address] STATES OF [facility] RBC (Bld) [#/Vol] 3.30 10*6/uL Low 4.20-6.00 [facility] Comment on above: Order Comment: Speci men Type: BLOOD SPECIMENOrdering Facility: [facility] Address: [address] [place] [address] Performed By: #### 5 7021-8 ####[facility] LABORATORYCLIA [id number] [address] [place] WBC (Bld) [#/Vol] 12.46 10*3/uL High 3.70-11.00 [facility] Comment on above: Order Comment: Speci men Type: BLOOD SPECIMENOrdering Facility: [facility] Address: [address] [place] [address] Performed By: #### 5 7021-8 ####[facility] LABORATORYCLIA [id number] [address] OF [facility] CONSULT PROGon 08-03-2021 CONSULT PROG Normal [facility] Magnesium SerPl-mCncon 08-03 Magnesium [Mass/Vol] 2.2 mg/dL Normal 1.7-2.3 [facility] Comment on above: Order Comment: Speci men Type: BLOOD SPECIMENOrdering Facility: [facility] Address: [address] [place] [address] Performed By: #### 2 4321-2, 13889-7, 2776- ####[facility] LABORATORYCLIA [id number] [address] STATES OF [facility] NURSING PROGon 08-03-2021 NURSING PROG Normal [facility] Phosphate SerPl-mCncon 08-03 Phosphate [Mass/Vol] 4.2 mg/dL Normal 2.7-4.8 [facility] Comment on above: Order Comment: Speci men Type: BLOOD SPECIMENOrdering Facility: [facility] Address: [address] [place] [address] Performed By: #### 2 4321-2, , 2776-05 ####[facility] LABORATORYCLIA [id number] [address] aPTT PPPon 08-03-2021 aPTT Coag (PPP) [Time] 50.0 s High 23.0-32.4 [facility] Comment on above: Order Comment: Speci men Type: BLOOD SPECIMENOrdering Facility: [facility] Address: [address] [place] [address] Performed By: #### 1 4979-9 ####[facility] LABORATORYCLIA [id number] [address] STATES OF [facility] CBC W Auto Differential pane l (Bld)on 08-02-2021 Basophils (Bld) [#/Vol] 10*3/uL Normal <0.11 [facility] Comment on above: Order Comment: Speci men Type: BLOOD SPECIMENOrdering Facility: [facility] Address: [address] [place] [address] Performed By: #### 5 7021-8 ####[facility] LABORATORYCLIA [id number] [address] Basophils/100 WBC (Bld) 0.2 % Normal [facility] Comment on above: Order Comment: Speci men Type: BLOOD SPECIMENOrdering Facility: [facility] Address: [address] [place] [address] Performed By: #### 5 7021-8 ####[facility] LABORATORYCLIA [id number] [place] [address] [place] Differential cell count method Nom (Bld) Auto Normal [facility] Comment on above: Order Comment: Speci men Type: BLOOD SPECIMENOrdering Facility: [facility] Address: [address] [place] [address] Performed By: #### 5 7021-8 ####[facility] LABORATORYCLIA [id number] [place] [address] [place] Eosinophils (Bld) [#/Vol] 10*3/uL Normal <0.46 [facility] Comment on above: Order Comment: Speci men Type: BLOOD SPECIMENOrdering Facility: [facility] Address: [address] [place] [address] Performed By: #### 5 7021-8 ####[facility] LABORATORYCLIA [id number] [address] STATES OF [facility] Eosinophils/100 WBC (Bld) 0.0 % Normal [facility] Comment on above: Order Comment: Speci men Type: BLOOD SPECIMENOrdering Facility: [facility] Address: [address] [place] [address] Performed By: #### 5 7021-8 ####[facility] LABORATORYCLIA [id number] [place] [address] [place] Erythrocyte distribution width (RBC) [Ratio] 17.3 % High 11.5-15.0 [facility] Comment on above: Order Comment: Speci men Type: BLOOD SPECIMENOrdering Facility: [facility] Address: [address] [place] [address] Performed By: #### 5 7021-8 ####[facility] LABORATORYCLIA [id number] [address] Hematocrit (Bld) [Volume fraction] 30.8 % Low 39.0-51.0 [facility] Comment on above: Order Comment: Speci men Type: BLOOD SPECIMENOrdering Facility: [facility] Address: [address] [place] [address] Performed By: #### 5 7021-8 ####[facility] LABORATORYCLIA [id number] [address] [place] Hemoglobin (Bld) [Mass/Vol] 9.7 g/dL Low 13.0-17.0 [facility] Comment on above: Order Comment: Speci men Type: BLOOD SPECIMENOrdering Facility: [facility] Address: [address] [place] [address] Performed By: #### 5 7021-8 ####[facility] LABORATORYCLIA [id number] [address] IMMATURE GRAN % 0.5 % Normal [facility] Comment on above: Order Comment: Speci men Type: BLOOD SPECIMENOrdering Facility: [facility] Address: [address] [place] [address] Performed By: #### 5 7021-8 ####[facility] LABORATORYCLIA [id number] [address] IMMATURE GRAN ABS 0.07 k/uL Normal <0.10 [facility] Comment on above: Order Comment: Speci men Type: BLOOD SPECIMENOrdering Facility: [facility] Address: [address] [place] [address] Performed By: #### 5 7021-8 ####[facility] LABORATORYCLIA [id number] [address] [place] Lymphocytes (Bld) [#/Vol] 1.60 10*3/uL Normal 1.00-4.00 [facility] Comment on above: Order Comment: Speci men Type: BLOOD SPECIMENOrdering Facility: [facility] Address: [address] [place] [address] Performed By: #### 5 7021-8 ####[facility] LABORATORYCLIA [id number] [address] Lymphocytes/100 WBC (Bld) 12.1 % Normal [facility] Comment on above: Order Comment: Speci men Type: BLOOD SPECIMENOrdering Facility: [facility] Address: [address] [place] [address] Performed By: #### 5 7021-8 ####[facility] LABORATORYCLIA [id number] [address] MCH (RBC) [Entitic mass] 28.6 pg Normal 26.0-34.0 [facility] Comment on above: Order Comment: Speci men Type: BLOOD SPECIMENOrdering Facility: [facility] Address: [address] [place] [address] Performed By: #### 5 7021-8 ####[facility] LABORATORYCLIA [id number] [address] MCHC (RBC) [Mass/Vol] 31.5 g/dL Normal 30.5-36.0 [facility] Comment on above: Order Comment: Speci men Type: BLOOD SPECIMENOrdering Facility: [facility] Address: [address] [place] [address] Performed By: #### 5 7021-8 ####[facility] LABORATORYCLIA [id number] [address] MCV (RBC) [Entitic vol] 90.9 fL Normal 80.0-100.0 [facility] Comment on above: Order Comment: Speci men Type: BLOOD SPECIMENOrdering Facility: [facility] Address: [address] [place] [address] Performed By: #### 5 7021-8 ####[facility] LABORATORYCLIA [id number] [address] Monocytes (Bld) [#/Vol] 0.39 10*3/uL Normal <0.87 [facility] Comment on above: Order Comment: Speci men Type: BLOOD SPECIMENOrdering Facility: [facility] Address: [address] [place] [address] Performed By: #### 5 7021-8 ####[facility] LABORATORYCLIA [id number] [address] [place] Monocytes/100 WBC (Bld) 3.0 % Normal [facility] Comment on above: Order Comment: Speci men Type: BLOOD SPECIMENOrdering Facility: [facility] Address: [address] [place] [address] Performed By: #### 5 7021-8 ####[facility] LABORATORYCLIA [id number] [place] [address] [place] Neutrophils (Bld) [#/Vol] 11.09 10*3/uL High 1.45-7.50 [facility] Comment on above: Order Comment: Speci men Type: BLOOD SPECIMENOrdering Facility: [facility] Address: [address] [place] [address] Performed By: #### 5 7021-8 ####[facility] LABORATORYCLIA [id number] [address] [place] Neutrophils/100 WBC (Bld) 84.2 % Normal [facility] Comment on above: Order Comment: Speci men Type: BLOOD SPECIMENOrdering Facility: [facility] Address: [address] [place] [address] Performed By: #### 5 7021-8 ####[facility] LABORATORYCLIA [id number] [place] [address] [place] Nucleated RBC (Bld) [#/Vol] 10*3/uL Normal <0.01 [facility] Comment on above: Order Comment: Speci men Type: BLOOD SPECIMENOrdering Facility: [facility] Address: [address] [place] [address] Performed By: #### 5 7021-8 ####[facility]ORATORYCLIA [id number] [address] [place] Nucleated RBC/100 WBC (Bld) [Ratio] 0.0 /100 WBC Normal [facility] Comment on above: Order Comment: Speci men Type: BLOOD SPECIMENOrdering Facility: [facility] Address: [address] [place] [address] Performed By: #### 5 7021-8 ####[facility] LABORATORYCLIA [id number] [place] [address] [place] Platelet mean volume (Bld) [Entitic vol] 10.0 fL Normal 9.0-12.7 [facility] Comment on above: Order Comment: Speci men Type: BLOOD SPECIMENOrdering Facility: [facility] Address: [address] [place] [address] Performed By: #### 5 7021-8 ####[facility] LABORATORYCLIA [id number] [place] [address] [place] Platelets (Bld) [#/Vol] 358 10*3/uL Normal 150-400 [facility] Comment on above: Order Comment: Speci men Type: BLOOD SPECIMENOrdering Facility: [facility] Address: [address] [place] [address] Performed By: #### 5 7021-8 ####[facility] LABORATORYCLIA [id number] [place] [address] [place] RBC (Bld) [#/Vol] 3.39 10*6/uL Low 4.20-6.00 [facility] Comment on above: Order Comment: Speci men Type: BLOOD SPECIMENOrdering Facility: [facility] Address: [address] [place] [address] Performed By: #### 5 7021-8 ####[facility] LABORATORYCLIA [id number] [place] [address] [place] WBC (Bld) [#/Vol] 13.17 10*3/uL High 3.70-11.00 [facility] Comment on above: Order Comment: Speci men Type: BLOOD SPECIMENOrdering Facility: [facility] Address: [address] [place] [address] Performed By: #### 5 7021-8 ####[facility] LABORATORYCLIA [id number] [address] OF [facility] NURSING PROGon 08-02-2021 NURSING PROG Normal [facility] THERAPY NTon 08-02-2021 THERAPY NT Normal [facility] aPTT PPPon 08-02-2021 aPTT Coag (PPP) [Time] 54.9 s High 23.0-32.4 [facility] Comment on above: Order Comment: Speci men Type: BLOOD SPECIMENOrdering Facility: [facility] Address: [address] [place] [address] Performed By: #### 1 4979-9 ####[facility] LABORATORYCLIA [id number] [address] [place] ALLIED HEALTHon 08-01-2021 ALLIED HEALTH Normal [facility] ALLIED HEALTH Normal [facility] Basic metabolic 2000 panelon 08-01-2021 Anion gap [Moles/Vol] 12 mmol/L Normal 9-18 [facility] Comment on above: Order Comment: Speci men Type: BLOOD SPECIMENOrdering Facility: [facility] Address: [address] [place] [address] Performed By: #### 2 4321-2, 47321-7, 18583-4, 2777-1 ####[facility] LABORATORYCLIA [id number] [place] [address] [place] Calcium [Mass/Vol] 9.1 mg/dL Normal 8.5-10.2 [facility] Comment on above: Order Comment: Speci men Type: BLOOD SPECIMENOrdering Facility: [facility] Address: [address] [place] [address] Performed By: #### 2 4321-2, 26630-0, 93353-2, 2777-1 ####[facility] LABORATORYCLIA [id number] [place] [address] [place] Chloride [Moles/Vol] 96 mmol/L Low 97-105 [facility] Comment on above: Order Comment: Speci men Type: BLOOD SPECIMENOrdering Facility: [facility] Address: [address] [place], [place] [id number] Performed By: #### 2 4321-2, 14414-2, 81589-1, 277- ####[facility] LABORATORYCLIA [id number] [place] [address] [place] CO2 [Moles/Vol] 27 mmol/L Normal 22-30 [facility] Comment on above: Order Comment: Speci men Type: BLOOD SPECIMENOrdering Facility: [facility] Address: [address] [place] [address] Performed By: #### 2 4321-2, 03220-8, 27771-1, 2776- ####[facility] LABORATORYCLIA [id number] [address] STATES OF [facility] Creatinine [Mass/Vol] 0.64 mg/dL Low 0.73-1.22 [facility] Comment on above: Order Comment: Speci men Type: BLOOD SPECIMENOrdering Facility: [facility] Address: [address] [place] [address] Performed By: #### 2 4321-2, 67777-7, 62078-3, 2776-05 ####[facility] LABORATORYCLIA [id number] [address] [place] ESTIMATED GLOMERULAR FILTRATION RATE 102 mL/min/1.73m??? Normal >=60 [facility] Comment on above: Order Comment: Speci men Type: BLOOD SPECIMENOrdering Facility: [facility] Address: [address] [place] [address] Result Comment: Luzmaria mated Glomerular Filtration Rate [...] actual GFR. Performed By: #### 2 4321-2, 20275-6, 83633-0, 2777-1 ####[facility] LABORATORYCLIA [id number] [place] [address] [place] Glucose [Mass/Vol] 122 mg/dL High 74-99 [facility] Comment on above: Order Comment: Shira francia Type: BLOOD SPECIMENOrdering Facility: [facility] Address: [address] [place] [address] Result Comment: The [place] [employer] (ADA) provides guidance for cutoff [...] Standards of Medical Care in Diabetes 2016, [place] [employer]. Diabetes Care. 2016.39(Suppl 1). Performed By: #### 2 4321-2, 82372-3, 66182-9, 2777-1 ####[facility] LABORATORYCLIA [id number] [place] [address] [place] Potassium [Moles/Vol] 4.2 mmol/L Normal 3.7-5.1 [facility] Comment on above: Order Comment: Shira francia Type: BLOOD SPECIMENOrdering Facility: [facility] Address: [address] [address] Performed By: #### 2 4321-2, 13828-1, 43200-9, 2777-1 ####[facility] LABORATORYCLIA [id number] [place] [address] [place] Sodium [Moles/Vol] 135 mmol/L Low 136-144 [facility] Comment on above: Order Comment: Johni francia Type: BLOOD SPECIMENOrdering Facility: [facility] Address: [address] [address] Performed By: #### 2 4321-2, 58214-6, 58198-9, 2777-1 ####[facility] LABORATORYCLIA [id number] [place] [address] [place] Urea nitrogen [Mass/Vol] 36 mg/dL High 9-24 [facility] Comment on above: Order Comment: Speci men Type: BLOOD SPECIMENOrdering Facility: [facility] Address: [address] [place] [address] Performed By: #### 2 4321-2, 53940-7, 16509-4, 2777-1 ####[facility] LABORATORYCLIA [id number] [address] STATES OF [facility] CASE MANAGEMon 08-01-2021 CASE MANAGEM Normal [facility] CBC W Auto Differential pane l (Bld)on 08-01-2021 Basophils (Bld) [#/Vol] 0.04 10*3/uL Normal <0.11 [facility] Comment on above: Order Comment: Speci men Type: BLOOD SPECIMENOrdering Facility: [facility] Address: [address] [place] [address] Performed By: #### 5 7021-8 ####[facility] LABORATORYCLIA [id number] [address] [place] Basophils/100 WBC (Bld) 0.3 % Normal [facility] Comment on above: Order Comment: Speci men Type: BLOOD SPECIMENOrdering Facility: [facility] Address: [address] [place] [address] Performed By: #### 5 7021-8 ####[facility] LABORATORYCLIA [id number] [address] STATES OF [facility] Differential cell count method Nom (Bld) Auto Normal [facility] Comment on above: Order Comment: Speci men Type: BLOOD SPECIMENOrdering Facility: [facility] Address: [address] [place] [address] Performed By: #### 5 7021-8 ####[facility] LABORATORYCLIA [id number] [address] [place] Eosinophils (Bld) [#/Vol] 0.37 10*3/uL Normal <0.46 [facility] Comment on above: Order Comment: Speci men Type: BLOOD SPECIMENOrdering Facility: [facility] Address: [address] [place] [address] Performed By: #### 5 7021-8 ####[facility] LABORATORYCLIA [id number] [address] [place] Eosinophils/100 WBC (Bld) 3.1 % Normal [facility] Comment on above: Order Comment: Speci men Type: BLOOD SPECIMENOrdering Facility: [facility] Address: [address] [place] [address] Performed By: #### 5 7021-8 ####[facility] LABORATORYCLIA [id number] [address] Erythrocyte distribution width (RBC) [Ratio] 17.5 % High 11.5-15.0 [facility] Comment on above: Order Comment: Speci men Type: BLOOD SPECIMENOrdering Facility: [facility] Address: [address] [place] [address] Performed By: #### 5 7021-8 ####[facility] LABORATORYCLIA [id number] [address] [place] Hematocrit (Bld) [Volume fraction] 30.1 % Low 39.0-51.0 [facility] Comment on above: Order Comment: Speci men Type: BLOOD SPECIMENOrdering Facility: [facility] Address: [address] [place] [address] Performed By: #### 5 7021-8 ####[facility] LABORATORYCLIA [id number] [address] [place] Hemoglobin (Bld) [Mass/Vol] 9.1 g/dL Low 13.0-17.0 [facility] Comment on above: Order Comment: Speci men Type: BLOOD SPECIMENOrdering Facility: [facility] Address: [address] [address] Performed By: #### 5 7021-8 ####[facility] LABORATORYCLIA [id number] [address] IMMATURE GRAN % 0.6 % Normal [facility] Comment on above: Order Comment: Speci men Type: BLOOD SPECIMENOrdering Facility: [facility] Address: [address] [place] [address] Performed By: #### 5 7021-8 ####[facility] LABORATORYCLIA [id number] [address] IMMATURE GRAN ABS 0.07 k/uL Normal <0.10 [facility] Comment on above: Order Comment: Speci men Type: BLOOD SPECIMENOrdering Facility: [facility] Address: [address] [place] [address] Performed By: #### 5 7021-8 ####[facility] LABORATORYCLIA [id number] [address] Lymphocytes (Bld) [#/Vol] 2.05 10*3/uL Normal 1.00-4.00 [facility] Comment on above: Order Comment: Speci men Type: BLOOD SPECIMENOrdering Facility: [facility] Address: [address] [place] [address] Performed By: #### 5 7021-8 ####[facility] LABORATORYCLIA [id number] [address] Lymphocytes/100 WBC (Bld) 17.1 % Normal [facility] Comment on above: Order Comment: Speci men Type: BLOOD SPECIMENOrdering Facility: [facility] Address: [address] [place] [address] Performed By: #### 5 7021-8 ####[facility] LABORATORYCLIA [id number] [address] MCH (RBC) [Entitic mass] 27.7 pg Normal 26.0-34.0 [facility] Comment on above: Order Comment: Speci men Type: BLOOD SPECIMENOrdering Facility: [facility] Address: [address] [place] [address] Performed By: #### 5 7021-8 ####[facility] LABORATORYCLIA [id number] [address] MCHC (RBC) [Mass/Vol] 30.2 g/dL Low 30.5-36.0 [facility] Comment on above: Order Comment: Speci men Type: BLOOD SPECIMENOrdering Facility: [facility] Address: [address] [place] [address] Performed By: #### 5 7021-8 ####[facility] LABORATORYCLIA [id number] [address] MCV (RBC) [Entitic vol] 91.5 fL Normal 80.0-100.0 [facility] Comment on above: Order Comment: Speci men Type: BLOOD SPECIMENOrdering Facility: [facility] Address: [address] [place] [address] Performed By: #### 5 7021-8 ####[facility] LABORATORYCLIA [id number] [address] Monocytes (Bld) [#/Vol] 0.53 10*3/uL Normal <0.87 [facility] Comment on above: Order Comment: Speci men Type: BLOOD SPECIMENOrdering Facility: [facility] Address: [address] [place] [address] Performed By: #### 5 7021-8 ####[facility] LABORATORYCLIA [id number] [address] Monocytes/100 WBC (Bld) 4.4 % Normal [facility] Comment on above: Order Comment: Speci men Type: BLOOD SPECIMENOrdering Facility: [facility] Address: [address] [place] [address] Performed By: #### 5 7021-8 ####[facility] LABORATORYCLIA [id number] [place] [address] [place] Neutrophils (Bld) [#/Vol] 8.91 10*3/uL High 1.45-7.50 [facility] Comment on above: Order Comment: Speci men Type: BLOOD SPECIMENOrdering Facility: [facility] Address: [address] [place] [address] Performed By: #### 5 7021-8 ####[facility] LABORATORYCLIA [id number] [address] [place] Neutrophils/100 WBC (Bld) 74.5 % Normal [facility] Comment on above: Order Comment: Speci men Type: BLOOD SPECIMENOrdering Facility: [facility] Address: [address] [place] [address] Performed By: #### 5 7021-8 ####[facility] LABORATORYCLIA [id number] [address] [place] Nucleated RBC (Bld) [#/Vol] 10*3/uL Normal <0.01 [facility] Comment on above: Order Comment: Speci men Type: BLOOD SPECIMENOrdering Facility: [facility] Address: [address] [place] [address] Performed By: #### 5 7021-8 ####[facility] LABORATORYCLIA [id number] [address] [place] Nucleated RBC/100 WBC (Bld) [Ratio] 0.0 /100 WBC Normal [facility] Comment on above: Order Comment: Speci men Type: BLOOD SPECIMENOrdering Facility: [facility] Address: [address] [place] [address] Performed By: #### 5 7021-8 ####[facility] LABORATORYCLIA [id number] [address] [place] Platelet mean volume (Bld) [Entitic vol] 10.4 fL Normal 9.0-12.7 [facility] Comment on above: Order Comment: Speci men Type: BLOOD SPECIMENOrdering Facility: [facility] Address: [address] [place] [address] Performed By: #### 5 7021-8 ####[facility] LABORATORYCLIA [id number] [address] STATES OF [facility] Platelets (Bld) [#/Vol] 319 10*3/uL Normal 150-400 [facility] Comment on above: Order Comment: Speci men Type: BLOOD SPECIMENOrdering Facility: [facility] Address: [address] [place] [address] Performed By: #### 5 7021-8 ####[facility] LABORATORYCLIA [id number] [place] [address] [place] RBC (Bld) [#/Vol] 3.29 10*6/uL Low 4.20-6.00 [facility] Comment on above: Order Comment: Speci men Type: BLOOD SPECIMENOrdering Facility: [facility] Address: [address] [place] [address] Performed By: #### 5 7021-8 ####[facility] LABORATORYCLIA [id number] [address] OF [facility] WBC (Bld) [#/Vol] 11.97 10*3/uL High 3.70-11.00 [facility] Comment on above: Order Comment: Speci men Type: BLOOD SPECIMENOrdering Facility: [facility] Address: [address] [place] [address] Performed By: #### 5 7021-8 ####[facility] LABORATORYCLIA [id number] [address] [place] CT BRAIN WO IVCONon 08-02-19 CT BRAIN WO IVCON Normal [facility] Magnesium SerPl-mCncon 08-01 Magnesium [Mass/Vol] 2.4 mg/dL High 1.7-2.3 [facility] Comment on above: Order Comment: Speci men Type: BLOOD SPECIMENOrdering Facility: [facility] Address: [address] [place] [address] Performed By: #### 2 4321-2, 34138-8, 48007-9, 2777-1 ####[facility] LABORATORYCLIA [id number] [address] [place] NURSING PROGon 08-01-2021 NURSING PROG Normal [facility] NUTRITIONon 08-01-2021 NUTRITION Normal [facility] Phosphate SerPl-mCncon 08-01 Phosphate [Mass/Vol] 3.3 mg/dL Normal 2.7-4.8 [facility] Comment on above: Order Comment: Speci men Type: BLOOD SPECIMENOrdering Facility: [facility] Address: [address] [place] [address] Performed By: #### 2 4321-2, 68365-6, 93787-1, 2777-1 ####[facility] LABORATORYCLIA [id number] [address] [place] Prealbumin [Mass/Vol]on 07-06 Prealbumin Nephelometry [Mass/Vol] 30 mg/dL Normal 17-36 [facility] Comment on above: Order Comment: Speci men Type: BLOOD SPECIMENOrdering Facility: [facility] Address: [address] [place] [address] Performed By: #### 2 4321-2, 88010-3, 69618-6, 2777-1 ####[facility] LABORATORYCLIA [id number] [address] [place] THERAPY NTon 08-01-2021 THERAPY NT Normal [facility] THERAPY NT Normal [facility] TYPE AND SCREENon 08-01-2021 ABO O Normal [facility] Comment on above: Order Comment: Speci men Type: BLOOD SPECIMENOrdering Facility: [facility] Address: [address] [place] [address] Performed By: #### T SCR ####[facility] BLOOD BANKCLIA [id number] [address] [place] HISTORICAL AB SCR STATUS Negative Normal [facility] Comment on above: Order Comment: Speci men Type: BLOOD SPECIMENOrdering Facility: [facility] Address: [address] [address] Performed By: #### T SCR ####[facility] BLOOD BANKCLIA [id number] [address] Rh Nom (Bld) Positive Normal [facility] Comment on above: Order Comment: Speci men Type: BLOOD SPECIMENOrdering Facility: [facility] Address: [address] [place] [address] Performed By: #### T SCR ####[facility] BLOOD BANKCLIA [id number] [address] TYPE AND SCREEN EXPIRATION 08/04/2021 23:59 Normal [facility] Comment on above: Order Comment: Speci men Type: BLOOD SPECIMENOrdering Facility: [facility] Address: [address] [place] [address] Performed By: #### T SCR ####[facility] BLOOD BANKCLIA [id number] [address] OF [facility] XR CHEST 1V FRONTALon 2021 XR CHEST 1V FRONTAL Normal [facility] aPTT PPPon 08-01-2021 aPTT Coag (PPP) [Time] 50.9 s High 23.0-32.4 [facility] Comment on above: Order Comment: Speci men Type: BLOOD SPECIMENOrdering Facility: [facility] Address: [address] [place] [address] Performed By: #### 1 4979-9 ####[facility] LABORATORYCLIA [id number] [address] CBC W Auto Differential pane l (Bld)on 07-31-2021 Basophils (Bld) [#/Vol] 0.05 10*3/uL Normal <0.11 [facility] Comment on above: Order Comment: Speci men Type: BLOOD SPECIMENOrdering Facility: [facility] Address: [address] [place] [address] Performed By: #### 5 7021-8 ####[facility] LABORATORYCLIA [id number] [address] [place] Basophils/100 WBC (Bld) 0.4 % Normal [facility] Comment on above: Order Comment: Speci men Type: BLOOD SPECIMENOrdering Facility: [facility] Address: [address] [place] [address] Performed By: #### 5 7021-8 ####[facility] LABORATORYCLIA [id number] [address] [place] Differential cell count method Nom (Bld) Auto Normal [facility] Comment on above: Order Comment: Speci men Type: BLOOD SPECIMENOrdering Facility: [facility] Address: [address] [place] [address] Performed By: #### 5 7021-8 ####[facility] LABORATORYCLIA [id number] [place] [address] [place] Eosinophils (Bld) [#/Vol] 0.51 10*3/uL High <0.46 [facility] Comment on above: Order Comment: Speci men Type: BLOOD SPECIMENOrdering Facility: [facility] Address: [address] [place] [address] Performed By: #### 5 7021-8 ####[facility] LABORATORYCLIA [id number] [address] [place] Eosinophils/100 WBC (Bld) 4.5 % Normal [facility] Comment on above: Order Comment: Speci men Type: BLOOD SPECIMENOrdering Facility: [facility] Address: [address] [place] [address] Performed By: #### 5 7021-8 ####[facility] LABORATORYCLIA [id number] [address] [place] Erythrocyte distribution width (RBC) [Ratio] 17.5 % High 11.5-15.0 [facility] Comment on above: Order Comment: Speci men Type: BLOOD SPECIMENOrdering Facility: [facility] Address: [address] [place] [address] Performed By: #### 5 7021-8 ####[facility] LABORATORYCLIA [id number] [address] Hematocrit (Bld) [Volume fraction] 30.4 % Low 39.0-51.0 [facility] Comment on above: Order Comment: Speci men Type: BLOOD SPECIMENOrdering Facility: [facility] Address: [address] [place] [address] Performed By: #### 5 7021-8 ####[facility] LABORATORYCLIA [id number] [address] Hemoglobin (Bld) [Mass/Vol] 9.2 g/dL Low 13.0-17.0 [facility] Comment on above: Order Comment: Speci men Type: BLOOD SPECIMENOrdering Facility: [facility] Address: [address] [place] [address] Performed By: #### 5 7021-8 ####[facility] LABORATORYCLIA [id number] [address] IMMATURE GRAN % 0.5 % Normal [facility] Comment on above: Order Comment: Speci men Type: BLOOD SPECIMENOrdering Facility: [facility] Address: [address] [place] [address] Performed By: #### 5 7021-8 ####[facility] LABORATORYCLIA [id number] [address] IMMATURE GRAN ABS 0.06 k/uL Normal <0.10 [facility] Comment on above: Order Comment: Speci men Type: BLOOD SPECIMENOrdering Facility: [facility] Address: [address] [place] [address] Performed By: #### 5 7021-8 ####[facility] LABORATORYCLIA [id number] [address] Lymphocytes (Bld) [#/Vol] 1.99 10*3/uL Normal 1.00-4.00 [facility] Comment on above: Order Comment: Speci men Type: BLOOD SPECIMENOrdering Facility: [facility] Address: [address] [place] [address] Performed By: #### 5 7021-8 ####[facility] LABORATORYCLIA [id number] [address] Lymphocytes/100 WBC (Bld) 17.6 % Normal [facility] Comment on above: Order Comment: Speci men Type: BLOOD SPECIMENOrdering Facility: [facility] Address: [address] [place] [address] Performed By: #### 5 7021-8 ####[facility] LABORATORYCLIA [id number] [address] MCH (RBC) [Entitic mass] 28.4 pg Normal 26.0-34.0 [facility] Comment on above: Order Comment: Speci men Type: BLOOD SPECIMENOrdering Facility: [facility] Address: [address] [place] [address] Performed By: #### 5 7021-8 ####[facility]ORATORYCLIA [id number] [address] MCHC (RBC) [Mass/Vol] 30.3 g/dL Low 30.5-36.0 [facility] Comment on above: Order Comment: Speci men Type: BLOOD SPECIMENOrdering Facility: [facility] Address: [address] [place] [address] Performed By: #### 5 7021-8 ####[facility]ORATORYCLIA [id number] [address] MCV (RBC) [Entitic vol] 93.8 fL Normal 80.0-100.0 [facility] Comment on above: Order Comment: Speci men Type: BLOOD SPECIMENOrdering Facility: [facility] Address: [address] [place] [address] Performed By: #### 5 7021-8 ####[facility]ORATORYCLIA [id number] [address] Monocytes (Bld) [#/Vol] 0.57 10*3/uL Normal <0.87 [facility] Comment on above: Order Comment: Speci men Type: BLOOD SPECIMENOrdering Facility: [facility] Address: [address] [place] [address] Performed By: #### 5 7021-8 ####[facility]ORATORYCLIA [id number] [address] [place] Monocytes/100 WBC (Bld) 5.0 % Normal [facility] Comment on above: Order Comment: Speci men Type: BLOOD SPECIMENOrdering Facility: [facility] Address: [address] [place] [address] Performed By: #### 5 7021-8 ####[facility]ORATORYCLIA [id number] [address] [place] Neutrophils (Bld) [#/Vol] 8.12 10*3/uL High 1.45-7.50 [facility] Comment on above: Order Comment: Speci men Type: BLOOD SPECIMENOrdering Facility: [facility] Address: [address] [place] [address] Performed By: #### 5 7021-8 ####[facility]ATORYCLIA [id number] [address] Neutrophils/100 WBC (Bld) 72.0 % Normal [facility] Comment on above: Order Comment: Speci men Type: BLOOD SPECIMENOrdering Facility: [facility] Address: [address] [place] [address] Performed By: #### 5 7021-8 ####[facility]ORATORYCLIA [id number] [address] [place] Nucleated RBC (Bld) [#/Vol] 10*3/uL Normal <0.01 [facility] Comment on above: Order Comment: Speci men Type: BLOOD SPECIMENOrdering Facility: [facility] Address: [address] [place] [address] Performed By: #### 5 7021-8 ####[facility]ORATORYCLIA [id number] [place] [address] [place] Nucleated RBC/100 WBC (Bld) [Ratio] 0.0 /100 WBC Normal [facility] Comment on above: Order Comment: Speci men Type: BLOOD SPECIMENOrdering Facility: [facility] Address: [address] [place] [address] Performed By: #### 5 7021-8 ####[facility]ORATORYCLIA [id number] [place] [address] [place] Platelet mean volume (Bld) [Entitic vol] 10.9 fL Normal 9.0-12.7 [facility] Comment on above: Order Comment: Speci men Type: BLOOD SPECIMENOrdering Facility: [facility] Address: [address] [place] [address] Performed By: #### 5 7021-8 ####[facility]ORATORYCLIA [id number] [address] [place] Platelets (Bld) [#/Vol] 303 10*3/uL Normal 150-400 [facility] Comment on above: Order Comment: Speci men Type: BLOOD SPECIMENOrdering Facility: [facility] Address: [address] [place] [address] Performed By: #### 5 7021-8 ####[facility]ORATORYCLIA [id number] [place] [address] [place] RBC (Bld) [#/Vol] 3.24 10*6/uL Low 4.20-6.00 [facility] Comment on above: Order Comment: Speci men Type: BLOOD SPECIMENOrdering Facility: [facility] Address: [address] [place] [address] Performed By: #### 5 7021-8 ####[facility] LABORATORYCLIA [id number] [place] [address] [place] WBC (Bld) [#/Vol] 11.30 10*3/uL High 3.70-11.00 [facility] Comment on above: Order Comment: Speci men Type: BLOOD SPECIMENOrdering Facility: [facility] Address: [address] [place] [address] Performed By: #### 5 7021-8 ####[facility] LABORATORYCLIA [id number] [address] [place] NURSING PROGon 07-31-2021 NURSING PROG Normal [facility] aPTT PPPon 07-31-2021 aPTT Coag (PPP) [Time] 64.9 s High 23.0-32.4 [facility] Comment on above: Order Comment: Speci men Type: BLOOD SPECIMENOrdering Facility: [facility] Address: [address] [place] [address] Performed By: #### 1 4979-9 ####[facility]ORATORYCLIA [id number] [address] [place] ALLIED HEALTHon 07-30-2021 ALLIED HEALTH Normal [facility] Bacteria CSF Culton 07-31-19 22 Bacteria identified Cx Nom (CSF) CULTURE, CSF: No growth 14 days GRAM STAIN: No organisms seen Few Mononuclear cells Rare Polymorphonuclear leukocytes Gram stain performed on cytospun specimen. Normal [facility] Comment on above: Performed By: #### 6 06-4 ####[facility]ORATORYCLIA [id number] [place] [address] [place] Basic metabolic 2000 panelon 07-30-2021 Anion gap [Moles/Vol] 9 mmol/L Normal 9-18 [facility] Comment on above: Order Comment: Speci men Type: BLOOD SPECIMENOrdering Facility: [facility] Address: [address] [place] [address] Performed By: #### 2 777-1, 18420-9, 57094-1 ####[facility]ORATORYCLIA [id number] [place] [address] [place] Calcium [Mass/Vol] 8.9 mg/dL Normal 8.5-10.2 [facility] Comment on above: Order Comment: Speci men Type: BLOOD SPECIMENOrdering Facility: [facility] Address: [address] [place] [address] Performed By: #### 2 777-1, 07526-8, ####[facility]ORATORYCLIA [id number] [place] [address] [place] Chloride [Moles/Vol] 95 mmol/L Low 97-105 [facility] Comment on above: Order Comment: Speci men Type: BLOOD SPECIMENOrdering Facility: [facility] Address: [address] [place] [address] Performed By: #### 2 777-1, 17607-7, ####[facility]ORATORYCLIA [id number] [address] [place] CO2 [Moles/Vol] 28 mmol/L Normal 22-30 [facility] Comment on above: Order Comment: Speci men Type: BLOOD SPECIMENOrdering Facility: [facility] Address: [address] [place] [address] Performed By: #### 2 777-1, , ####[facility]ORATORYCLIA [id number] [address] [place] Creatinine [Mass/Vol] 0.67 mg/dL Low 0.73-1.22 [facility] Comment on above: Order Comment: Speci men Type: BLOOD SPECIMENOrdering Facility: [facility] Address: [address] [place] [address] Performed By: #### 2 777-1, , ####[facility]ORATORYCLIA [id number] [address] OF [facility] ESTIMATED GLOMERULAR FILTRATION RATE 101 mL/min/1.73m??? Normal >=60 [facility] Comment on above: Order Comment: Speci men Type: BLOOD SPECIMENOrdering Facility: [facility] Address: [address] [place] [address] Result Comment: Luzmaria mated Glomerular Filtration Rate [...] actual GFR. Performed By: #### 2 777-1, 44972-4, ####[facility]ORATORYCLIA [id number] [place] [address] [place] Glucose [Mass/Vol] 125 mg/dL High 74-99 [facility] Comment on above: Order Comment: Shira feldman Type: BLOOD SPECIMENOrdering Facility: [facility] Address: [address] [place] [phone] Result Comment: The [place] [employer] (ADA) provides guidance for cutoff [...] Standards of Medical Care in Diabetes 2016, [place] [employer]. Diabetes Care. 2016.39(Suppl 1). Performed By: #### 2 777-1, , ####[facility]ORATORYCLIA [id number] [place] [address] [place] Potassium [Moles/Vol] 3.9 mmol/L Normal 3.7-5.1 [facility] Comment on above: Order Comment: Shira feldman Type: BLOOD SPECIMENOrdering Facility: [facility] Address: [address] [place] [address] Performed By: #### 2 777-1, 73654-8, ####[facility]ORATORYCLIA [id number] [place] [address] [place] Sodium [Moles/Vol] 132 mmol/L Low 136-144 [facility] Comment on above: Order Comment: Speci men Type: BLOOD SPECIMENOrdering Facility: [facility] Address: [address] [place] [address] Performed By: #### 2 777-1, 83650-5, ####[facility]ORATORYCLIA [id number] [address] STATES [facility] Urea nitrogen [Mass/Vol] 38 mg/dL High 9-24 [facility] Comment on above: Order Comment: Speci men Type: BLOOD SPECIMENOrdering Facility: [facility] Address: [address] [place] [address] Performed By: #### 2 777-1, 29930-5, ####[facility]ORATORYCLIA [id number] [address] STATES OF [facility] CBC W Auto Differential pane l (Bld)on 07-30-2021 Basophils (Bld) [#/Vol] 0.04 10*3/uL Normal <0.11 [facility] Comment on above: Order Comment: Speci men Type: BLOOD SPECIMENOrdering Facility: [facility] Address: [address] [place] [address] Performed By: #### 5 7021-8 ####[facility]ORATORYCLIA [id number] [address] [place] Basophils/100 WBC (Bld) 0.4 % Normal [facility] Comment on above: Order Comment: Speci men Type: BLOOD SPECIMENOrdering Facility: [facility] Address: [address] [place] [address] Performed By: #### 5 7021-8 ####[facility]ORATORYCLIA [id number] [address] Differential cell count method Nom (Bld) Auto Normal [facility] Comment on above: Order Comment: Speci men Type: BLOOD SPECIMENOrdering Facility: [facility] Address: [address] [place] [address] Performed By: #### 5 7021-8 ####[facility]ATORYCLIA [id number] [address] [place] Eosinophils (Bld) [#/Vol] 0.30 10*3/uL Normal <0.46 [facility] Comment on above: Order Comment: Speci men Type: BLOOD SPECIMENOrdering Facility: [facility] Address: [address] [place] [address] Performed By: #### 5 7021-8 ####[facility]ORATORYCLIA [id number] [address] Eosinophils/100 WBC (Bld) 2.7 % Normal [facility] Comment on above: Order Comment: Speci men Type: BLOOD SPECIMENOrdering Facility: [facility] Address: [address] [place] [address] Performed By: #### 5 7021-8 ####[facility]ORATORYCLIA [id number] [address] Erythrocyte distribution width (RBC) [Ratio] 17.2 % High 11.5-15.0 [facility] Comment on above: Order Comment: Speci men Type: BLOOD SPECIMENOrdering Facility: [facility] Address: [address] [place] [address] Performed By: #### 5 7021-8 ####[facility]ORATORYCLIA [id number] [address] [place] Hematocrit (Bld) [Volume fraction] 30.8 % Low 39.0-51.0 [facility] Comment on above: Order Comment: Speci men Type: BLOOD SPECIMENOrdering Facility: [facility] Address: [address] [place] [address] Performed By: #### 5 7021-8 ####[facility]ORATORYCLIA [id number] [address] [place] Hemoglobin (Bld) [Mass/Vol] 9.4 g/dL Low 13.0-17.0 [facility] Comment on above: Order Comment: Speci men Type: BLOOD SPECIMENOrdering Facility: [facility] Address: [address] [place] [address] Performed By: #### 5 7021-8 ####[facility]ORATORYCLIA [id number] [address] IMMATURE GRAN % 0.5 % Normal [facility] Comment on above: Order Comment: Speci men Type: BLOOD SPECIMENOrdering Facility: [facility] Address: [address] [place] [address] Performed By: #### 5 7021-8 ####[facility]ORATORYCLIA [id number] [address] IMMATURE GRAN ABS 0.06 k/uL Normal <0.10 [facility] Comment on above: Order Comment: Speci men Type: BLOOD SPECIMENOrdering Facility: [facility] Address: [address] [place] [address] Performed By: #### 5 7021-8 ####[facility]ORATORYCLIA [id number] [address] Lymphocytes (Bld) [#/Vol] 1.68 10*3/uL Normal 1.00-4.00 [facility] Comment on above: Order Comment: Speci men Type: BLOOD SPECIMENOrdering Facility: [facility] Address: [address] [place] [address] Performed By: #### 5 7021-8 ####[facility]ORATORYCLIA [id number] [address] Lymphocytes/100 WBC (Bld) 15.3 % Normal [facility] Comment on above: Order Comment: Speci men Type: BLOOD SPECIMENOrdering Facility: [facility] Address: [address] [place] [address] Performed By: #### 5 7021-8 ####[facility]ORATORYCLIA [id number] [address] MCH (RBC) [Entitic mass] 28.0 pg Normal 26.0-34.0 [facility] Comment on above: Order Comment: Speci men Type: BLOOD SPECIMENOrdering Facility: [facility] Address: [address] [place] [address] Performed By: #### 5 7021-8 ####[facility]ORATORYCLIA [id number] [address] STATES OF [facility] MCHC (RBC) [Mass/Vol] 30.5 g/dL Normal 30.5-36.0 [facility] Comment on above: Order Comment: Speci men Type: BLOOD SPECIMENOrdering Facility: [facility] Address: [address] [place] [address] Performed By: #### 5 7021-8 ####[facility]ORATORYCLIA [id number] [address] STATES OF [facility] MCV (RBC) [Entitic vol] 91.7 fL Normal 80.0-100.0 [facility] Comment on above: Order Comment: Speci men Type: BLOOD SPECIMENOrdering Facility: [facility] Address: [address] [place] [address] Performed By: #### 5 7021-8 ####[facility]ORATORYCLIA [id number] [address] Monocytes (Bld) [#/Vol] 0.53 10*3/uL Normal <0.87 [facility] Comment on above: Order Comment: Speci men Type: BLOOD SPECIMENOrdering Facility: [facility] Address: [address] [place] [address] Performed By: #### 5 7021-8 ####[facility]ORATORYCLIA [id number] [address] Monocytes/100 WBC (Bld) 4.8 % Normal [facility] Comment on above: Order Comment: Speci men Type: BLOOD SPECIMENOrdering Facility: [facility] Address: [address] [place] [address] Performed By: #### 5 7021-8 ####[facility]ORATORYCLIA [id number] [place] [address] [place] Neutrophils (Bld) [#/Vol] 8.39 10*3/uL High 1.45-7.50 [facility] Comment on above: Order Comment: Speci men Type: BLOOD SPECIMENOrdering Facility: [facility] Address: [address] [place] [address] Performed By: #### 5 7021-8 ####[facility]ATORYCLIA [id number] [address] [place] Neutrophils/100 WBC (Bld) 76.3 % Normal [facility] Comment on above: Order Comment: Speci men Type: BLOOD SPECIMENOrdering Facility: [facility] Address: [address] [place] [address] Performed By: #### 5 7021-8 ####[facility]ORATORYCLIA [id number] [address] STATES [facility] Nucleated RBC (Bld) [#/Vol] 10*3/uL Normal <0.01 [facility] Comment on above: Order Comment: Speci men Type: BLOOD SPECIMENOrdering Facility: [facility] Address: [address] [place] [address] Performed By: #### 5 7021-8 ####[facility]ORATORYCLIA [id number] [address] [place] Nucleated RBC/100 WBC (Bld) [Ratio] 0.0 /100 WBC Normal [facility] Comment on above: Order Comment: Speci men Type: BLOOD SPECIMENOrdering Facility: [facility] Address: [address] [place] [address] Performed By: #### 5 7021-8 ####[facility]ORATORYCLIA [id number] [address] [place] Platelet mean volume (Bld) [Entitic vol] 10.9 fL Normal 9.0-12.7 [facility] Comment on above: Order Comment: Speci men Type: BLOOD SPECIMENOrdering Facility: [facility] Address: [address] [place], [place] [id number] Performed By: #### 5 7021-8 ####[facility]ORATORYCLIA [id number] [address] Platelets (Bld) [#/Vol] 287 10*3/uL Normal 150-400 [facility] Comment on above: Order Comment: Speci men Type: BLOOD SPECIMENOrdering Facility: [facility] Address: [address] [place] [address] Performed By: #### 5 7021-8 ####[facility]ORATORYCLIA [id number] [address] RBC (Bld) [#/Vol] 3.36 10*6/uL Low 4.20-6.00 [facility] Comment on above: Order Comment: Speci men Type: BLOOD SPECIMENOrdering Facility: [facility] Address: [address] [place] [address] Performed By: #### 5 7021-8 ####[facility]ORATORYCLIA [id number] [address] WBC (Bld) [#/Vol] 11.00 10*3/uL Normal 3.70-11.00 [facility] Comment on above: Order Comment: Speci men Type: BLOOD SPECIMENOrdering Facility: [facility] Address: [address] [place] [address] Performed By: #### 5 7021-8 ####[facility]ORATORYCLIA [id number] [address] CSF MANUAL DIFFon 07-30-2021 DIF TTL, CSF 100 cells counted Normal [facility] Comment on above: Order Comment: Speci men Type: CEREBROSPINAL FLUIDOrdering Facility: [facility] Address: [address] [place] [address] Performed By: #### L [id number], [id number], 13643-4 ####[facility]ORATORYCLIA [id number] [place] [address] [place] EOSIN%, CSF 0 % Normal [facility] Comment on above: Order Comment: Speci men Type: CEREBROSPINAL FLUIDOrdering Facility: [facility] Address: [address] [place] [address] Performed By: #### L [id number], [id number], 07670-8 ####[facility]ORYCLIA [id number] [place] [address] [place] LYMPH%, CSF 75 % Normal 50-90 [facility] Comment on above: Order Comment: Speci men Type: CEREBROSPINAL FLUIDOrdering Facility: [facility] Address: [address] [place] [address] Performed By: #### L [id number], [id number], 92236-6 ####[facility]ORYCLIA [id number] [place] [address] [place] MACRO%, CSF 9 % High <1 [facility] Comment on above: Order Comment: Speci men Type: CEREBROSPINAL FLUIDOrdering Facility: [facility] Address: [address] [place] [address] Performed By: #### L [id number], [id number], 54683-5 ####[facility]ATORYCLIA [id number] [place] [address] [place] MONO%, CSF 10 % Normal 10-50 [facility] Comment on above: Order Comment: Speci men Type: CEREBROSPINAL FLUIDOrdering Facility: [facility] Address: [address] [place] [address] Performed By: #### L [id number], [id number], 75917-3 ####[facility]ATORYCLIA [id number] [address] [place] OTHER CL%, CSF 4 % Normal [facility] Comment on above: Order Comment: Speci men Type: CEREBROSPINAL FLUIDOrdering Facility: [facility] Address: [address] [place] [address] Result Comment: Path review to follow. Performed By: #### L [id number], [id number], 18338-7 ####[facility]ORYCLIA [id number] [address] [place] REAC LYMPH %, CSF 2 % Normal [facility] Comment on above: Order Comment: Speci men Type: CEREBROSPINAL FLUIDOrdering Facility: [facility] Address: [address] [place] [address] Performed By: #### L [id number], [id number], 16732-6 ####[facility]ORYCLIA [id number] [address] [place] CSF PATHOLOGIST INTERP (LAB REFLEX ORDER-NO BILL)on 07-30-2021 CSF STAFF REVIEW Negative Normal [facility] Comment on above: Order Comment: Speci men Type: CEREBROSPINAL FLUIDOrdering Facility: [facility] Address: [address] [place] [address] Performed By: #### L [id number], [id number], 61900-4 ####[facility] LABORATORYCLIA [id number] [address] Pathologist name Reviewed by Eloise rebolledo MD Normal [facility] Comment on above: Order Comment: Speci men Type: CEREBROSPINAL FLUIDOrdering Facility: [facility] Address: [address] [place] [address] Performed By: #### L [id number], [id number], [id number] ####[facility]ORATORYCLIA [id number] [address] [place] BRAIN WO IVCONon 07-31-[address] BRAIN WO IVCON Normal [facility] Cell count panel (CSF)on Clarity (CSF) Clear Normal Clear [facility] Comment on above: Order Comment: Speci men Type: CEREBROSPINAL FLUIDOrdering Facility: [facility] Address: [address] [place] [address] Performed By: #### L [id number], [id number], [id number] ####[facility]ORATORYCLIA [id number] [address] Clarity (Unsp spec) Clear Normal Clear [facility] Comment on above: Order Comment: Speci men Type: CEREBROSPINAL FLUIDOrdering Facility: [facility] [facility] [place] Address: [address] [place] [address] Performed By: #### L [id number], ATH1224, 44674-0 ####[facility]ATORYCLIA [id number] [address] Color (CSF) Colorless Normal Colorless [facility] Comment on above: Order Comment: Speci men Type: CEREBROSPINAL FLUIDOrdering Facility: [facility] [place] Address: [address] [place] [address] Performed By: #### L [id number], LVR7118, 97783-9 ####[facility]ATORYCLIA [id number] [address] Color (Spun CSF) Colorless Normal Colorless [facility] Comment on above: Order Comment: Speci men Type: CEREBROSPINAL FLUIDOrdering Facility: [facility] [place] Address: [address] [place], [place] [id number] Performed By: #### L BE4677, PCT2635, 17070-8 ####[facility]ATORYCLIA [id number] [address] CSF TUBE NUMBER [employer] Normal [facility] Comment on above: Order Comment: Speci men Type: CEREBROSPINAL FLUIDOrdering Facility: [facility] [place] Address: [address] [place], [place] [id number] Performed By: #### L [id number], EHP8347, 36932-7 ####[facility]ATORYCLIA [id number] [address] RBC Manual cnt (CSF) [#/Vol] 9 cells/uL High 0-5 [facility] Comment on above: Order Comment: Speci men Type: CEREBROSPINAL FLUIDOrdering Facility: [facility] [place] Address: [address] [place], [place] [id number] Performed By: #### L [id number], BWF6412, 96549-9 ####[facility]ATORYCLIA [id number] [place] [address] [place] WBC Manual cnt (CSF) [#/Vol] 8 cells/uL High 0-5 [facility] Comment on above: Order Comment: Speci men Type: CEREBROSPINAL FLUIDOrdering Facility: [facility] [place] Address: [address] [place] [address] Performed By: #### L [id number], WRL1921, 72327-6 ####[facility]ORATORYCLIA [id number] [address] STATES OF [facility] Glucose CSF-mCncon Glucose (CSF) [Mass/Vol] 65 mg/dL Normal 40-70 [facility] Comment on above: Order Comment: Speci men Type: CEREBROSPINAL FLUIDOrdering Facility: [facility] [place] Address: [address] [place] [address] Result Comment: Lumb ar CSF glucose values of healthy patients are approximately 60% of the plasma values and must always be compared with a concurrently measured plasma value for adequate clinical interpretation.References: 1. Glucose HK (GLUC3) [package insert V 12.0 Estonian]. [employer], [place], [place]. September 2015. 2. Michelle Moore, Loki, H. (2015). Chapter 7: Glucose and Lactate. Marianela Alcocer al.(eds.), Cerebrospinal Fluid in Clinical Neurology. [place]: [employer]. Performed By: #### 2 342-4, 2880-3 ####[facility]ATORYCLIA [id number] [address] [place] Magnesium SerPl-ncon 07-30 Magnesium [Mass/Vol] 2.5 mg/dL High 1.7-2.3 [facility] Comment on above: Order Comment: Speci men Type: BLOOD SPECIMENOrdering Facility: [facility] [place] Address: [address] [place] [address] Performed By: #### 2 777-1, 01283-2, 88709-4 ####[facility]ATORYCLIA [id number] [address] NURSING PROGon 07-30-2021 NURSING PROG Normal [facility] Phosphate SerPl-mCncon 07-30 Phosphate [Mass/Vol] 2.4 mg/dL Low 2.7-4.8 [facility] Comment on above: Order Comment: Speci men Type: BLOOD SPECIMENOrdering Facility: [facility] [place] Address: [address] [place] [address] Performed By: #### 2 777-1, 92972-9, 68863-8 ####[facility]ATORYCLIA [id number] [address] Prot CSF-mCncon 07-30-2021 Protein (CSF) [Mass/Vol] 50 mg/dL High 15-45 [facility] Comment on above: Order Comment: Speci men Type: CEREBROSPINAL FLUIDOrdering Facility: [facility] [place] Address: [address] [place] [address] Performed By: #### 2 342-4, 2880-3 ####[facility]ORATORYCLIA [id number] [address] aPTT PPPon 07-30-2021 aPTT Coag (PPP) [Time] 64.1 s High 23.0-32.4 [facility] Comment on above: Order Comment: Speci men Type: BLOOD SPECIMENOrdering Facility: [facility] [place] Address: [address] [place] [address] Performed By: #### 1 4979-9 ####[facility]ORATORYCLIA [id number] [address] [place] Bacteria CSF Culton 07-30-19 22 Bacteria identified Cx Nom (CSF) CULTURE, CSF: No growth 14 days GRAM STAIN: No cells or organisms seen Gram stain performed on cytospun specimen. Gram stain confirmed by microbiology Normal [facility] Comment on above: Performed By: #### 6 06-4 ####[facility]ATORYCLIA [id number] [address] [place] CASE MANAGEMon 07-29-2021 CASE MANAGEM Normal [facility] CBC W Auto Differential pane l (Bld)on 07-29-2021 Basophils (Bld) [#/Vol] 0.03 10*3/uL Normal <0.11 [facility] Comment on above: Order Comment: Speci men Type: BLOOD SPECIMENOrdering Facility: [facility] [place] Address: [address] [place] [address] Performed By: #### 5 7021-8 ####[facility]ORATORYCLIA [id number] [address] Basophils/100 WBC (Bld) 0.3 % Normal [facility] Comment on above: Order Comment: Speci men Type: BLOOD SPECIMENOrdering Facility: [facility] [place] Address: [address] [place] [address] Performed By: #### 5 7021-8 ####[facility]ATORYCLIA [id number] [address] Differential cell count method Nom (Bld) Auto Normal [facility] Comment on above: Order Comment: Speci men Type: BLOOD SPECIMENOrdering Facility: [facility] [place] Address: [address] [place] [address] Performed By: #### 5 7021-8 ####[facility]ORATORYCLIA [id number] [address] [place] Eosinophils (Bld) [#/Vol] 0.40 10*3/uL Normal <0.46 [facility] Comment on above: Order Comment: Speci men Type: BLOOD SPECIMENOrdering Facility: [facility] [place] Address: [address] [place] [address] Performed By: #### 5 7021-8 ####[facility]ATORYCLIA [id number] [address] Eosinophils/100 WBC (Bld) 3.9 % Normal [facility] Comment on above: Order Comment: Speci men Type: BLOOD SPECIMENOrdering Facility: [facility] [place] Address: [address] [address] Performed By: #### 5 7021-8 ####[facility]ORATORYCLIA [id number] [address] Erythrocyte distribution width (RBC) [Ratio] 17.1 % High 11.5-15.0 [facility] Comment on above: Order Comment: Speci men Type: BLOOD SPECIMENOrdering Facility: [facility] [place] Address: [address] [place] [address] Performed By: #### 5 7021-8 ####[facility]ORATORYCLIA [id number] [address] Hematocrit (Bld) [Volume fraction] 32.0 % Low 39.0-51.0 [facility] Comment on above: Order Comment: Speci men Type: BLOOD SPECIMENOrdering Facility: [facility] [place] Address: [address] [place] [address] Performed By: #### 5 7021-8 ####[facility]ATORYCLIA [id number] [address] Hemoglobin (Bld) [Mass/Vol] 9.7 g/dL Low 13.0-17.0 [facility] Comment on above: Order Comment: Speci men Type: BLOOD SPECIMENOrdering Facility: [facility] [place] Address: [address] [place] [address] Performed By: #### 5 7021-8 ####[facility]ORATORYCLIA [id number] [address] IMMATURE GRAN % 0.6 % Normal [facility] Comment on above: Order Comment: Speci men Type: BLOOD SPECIMENOrdering Facility: [facility] [place] Address: [address] [place] [address] Performed By: #### 5 7021-8 ####[facility]ATORYCLIA [id number] [address] IMMATURE GRAN ABS 0.06 k/uL Normal <0.10 [facility] Comment on above: Order Comment: Speci men Type: BLOOD SPECIMENOrdering Facility: [facility] [place] Address: [address] [place] [address] Performed By: #### 5 7021-8 ####[facility]ORATORYCLIA [id number] [address] Lymphocytes (Bld) [#/Vol] 1.96 10*3/uL Normal 1.00-4.00 [facility] Comment on above: Order Comment: Speci men Type: BLOOD SPECIMENOrdering Facility: [facility] [place] Address: [address] [place] [address] Performed By: #### 5 7021-8 ####[facility]ORATORYCLIA [id number] [address] Lymphocytes/100 WBC (Bld) 19.0 % Normal [facility] Comment on above: Order Comment: Speci men Type: BLOOD SPECIMENOrdering Facility: [facility] [place] Address: [address] [place] [address] Performed By: #### 5 7021-8 ####[facility]ORATORYCLIA [id number] [address] [place] MCH (RBC) [Entitic mass] 28.0 pg Normal 26.0-34.0 [facility] Comment on above: Order Comment: Speci men Type: BLOOD SPECIMENOrdering Facility: [facility] [place] Address: [address] [place] [address] Performed By: #### 5 7021-8 ####[facility]ORATORYCLIA [id number] [address] [place] MCHC (RBC) [Mass/Vol] 30.3 g/dL Low 30.5-36.0 [facility] Comment on above: Order Comment: Speci men Type: BLOOD SPECIMENOrdering Facility: [facility] [place] Address: [address] [place] [address] Performed By: #### 5 7021-8 ####[facility]ATORYCLIA [id number] [address] [place] MCV (RBC) [Entitic vol] 92.5 fL Normal 80.0-100.0 [facility] Comment on above: Order Comment: Speci men Type: BLOOD SPECIMENOrdering Facility: [facility] [place] Address: [facility] [place] [address] Performed By: #### 5 7021-8 ####[facility]ORATORYCLIA [id number] [place] [address] [place] Monocytes (Bld) [#/Vol] 0.53 10*3/uL Normal <0.87 [facility] Comment on above: Order Comment: Speci men Type: BLOOD SPECIMENOrdering Facility: [facility] [place] Address: [address] [place] [address] Performed By: #### 5 7021-8 ####[facility]ATORYCLIA [id number] [address] Monocytes/100 WBC (Bld) 5.2 % Normal [facility] Comment on above: Order Comment: Speci men Type: BLOOD SPECIMENOrdering Facility: [facility] [place] Address: [address] [place] [address] Performed By: #### 5 7021-8 ####[facility]ORATORYCLIA [id number] [place] [address] [place] Neutrophils (Bld) [#/Vol] 7.31 10*3/uL Normal 1.45-7.50 [facility] Comment on above: Order Comment: Speci men Type: BLOOD SPECIMENOrdering Facility: [facility] [place] Address: [address] [place] [address] Performed By: #### 5 7021-8 ####[facility]ATORYCLIA [id number] [address] [place] Neutrophils/100 WBC (Bld) 71.0 % Normal [facility] Comment on above: Order Comment: Speci men Type: BLOOD SPECIMENOrdering Facility: [facility] [place] Address: [address] [place] [address] Performed By: #### 5 7021-8 ####[facility]ORATORYCLIA [id number] [address] [place] Nucleated RBC (Bld) [#/Vol] 10*3/uL Normal <0.01 [facility] Comment on above: Order Comment: Speci men Type: BLOOD SPECIMENOrdering Facility: [facility] [place] Address: [address] [place] [address] Performed By: #### 5 7021-8 ####[facility]ORATORYCLIA [id number] [address] [place] Nucleated RBC/100 WBC (Bld) [Ratio] 0.0 /100 WBC Normal [facility] Comment on above: Order Comment: Speci men Type: BLOOD SPECIMENOrdering Facility: [facility] [place] Address: [address] [place] [address] Performed By: #### 5 7021-8 ####[facility]ORATORYCLIA [id number] [address] Platelet mean volume (Bld) [Entitic vol] 11.2 fL Normal 9.0-12.7 [facility] Comment on above: Order Comment: Speci men Type: BLOOD SPECIMENOrdering Facility: [facility] [place] Address: [address] [place] [address] Performed By: #### 5 7021-8 ####[facility]ORATORYCLIA [id number] [address] [place] Platelets (Bld) [#/Vol] 276 10*3/uL Normal 150-400 [facility] Comment on above: Order Comment: Speci men Type: BLOOD SPECIMENOrdering Facility: [facility] [place] Address: [address] [place] [address] Performed By: #### 5 7021-8 ####[facility]ORATORYCLIA [id number] [address] [place] RBC (Bld) [#/Vol] 3.46 10*6/uL Low 4.20-6.00 [facility] Comment on above: Order Comment: Speci men Type: BLOOD SPECIMENOrdering Facility: [facility] [place] Address: [address] [place] [address] Performed By: #### 5 7021-8 ####[facility]ORATORYCLIA [id number] [address] STATES OF [facility] WBC (Bld) [#/Vol] 10.29 10*3/uL Normal 3.70-11.00 [facility] Comment on above: Order Comment: Speci men Type: BLOOD SPECIMENOrdering Facility: [facility] [place] Address: [address] [place] [address] Performed By: #### 5 7021-8 ####[facility]ORATORYCLIA [id number] [address] NURSING PROGon 07-29-2021 NURSING PROG Normal [facility] THERAPY NTon 07-29-2021 THERAPY NT Normal [facility] aPTT PPPon 07-29-2021 aPTT Coag (PPP) [Time] 59.2 s High 23.0-32.4 [facility] Comment on above: Order Comment: Speci men Type: BLOOD SPECIMENOrdering Facility: [facility] [place] Address: [address] [place] [address] Performed By: #### 1 4979-9 ####[facility]ORATORYCLIA [id number] [address] [place] ALLIED HEALTHon 07-28-2021 ALLIED HEALTH Normal [facility] Basic metabolic 2000 panelon 07-28-2021 Anion gap [Moles/Vol] 7 mmol/L Low 9-18 [facility] Comment on above: Order Comment: Speci men Type: BLOOD SPECIMENOrdering Facility: [facility] [place] Address: [address] [place] [address] Performed By: #### 1 4338-8, 15458-0, 2777-1, 86227-5 ####[facility]ORATORYCLIA [id number] [address] STATES [facility] Calcium [Mass/Vol] 9.0 mg/dL Normal 8.5-10.2 [facility] Comment on above: Order Comment: Speci men Type: BLOOD SPECIMENOrdering Facility: [facility] [place] Address: [address] [place] [address] Performed By: #### 1 4338-8, 54952-6, 2777-1, 11926-5 ####[facility]ORATORYCLIA [id number] [place] [address] [place] Chloride [Moles/Vol] 94 mmol/L Low 97-105 [facility] Comment on above: Order Comment: Speci men Type: BLOOD SPECIMENOrdering Facility: [facility] [place] Address: [address] [place] [address] Performed By: #### 1 4338-8, 47080-2, 2777-1, 65888-0 ####[facility]ATORYCLIA [id number] [address] STATES OF [facility] CO2 [Moles/Vol] 31 mmol/L High 22-30 [facility] Comment on above: Order Comment: Speci men Type: BLOOD SPECIMENOrdering Facility: [facility] [place] Address: [address] [place] [address] Performed By: #### 1 4338-8, 93511-9, 2777-1, 72998-2 ####[facility]ATORYCLIA [id number] [place] [address] [place] Creatinine [Mass/Vol] 0.75 mg/dL Normal 0.73-1.22 [facility] Comment on above: Order Comment: Speci men Type: BLOOD SPECIMENOrdering Facility: [facility] [place] Address: [address] [place] [address] Performed By: #### 1 4338-8, 08106-6, 2777-1, 36445-8 ####[facility]ORATORYCLIA [id number] [address] STATES OF [facility] ESTIMATED GLOMERULAR FILTRATION RATE 98 mL/min/1.73m??? Normal >=60 [facility] Comment on above: Order Comment: Shira feldman Type: BLOOD SPECIMENOrdering Facility: [facility] [place] Address: [address] [place], [place] [id number] Result Comment: Luzmaria mated Glomerular Filtration Rate [...] actual GFR. Performed By: #### 1 4338-8, 49226-3, 2777-1, 49472-0 ####[facility]ENTERCLIA [id number] [place] [address] [place] Glucose [Mass/Vol] 122 mg/dL High 74-99 [facility] Comment on above: Order Comment: Shira feldman Type: BLOOD SPECIMENOrdering Facility: [facility] [place] Address: [address] [place] [address] Result Comment: The [place] [employer] (ADA) provides guidance for cutoff [...] Standards of Medical Care in Diabetes 2016, [place] [employer]. Diabetes Care. 2016.39(Suppl 1). Performed By: #### 1 4338-8, 61998-4, 2777-1, 45983-1 ####[facility]ENTERCLIA [id number] [place] [id number] [place] Potassium [Moles/Vol] 4.0 mmol/L Normal 3.7-5.1 [facility] Comment on above: Order Comment: Shira men Type: BLOOD SPECIMENOrdering Facility: [facility] Address: [address] [place] [address] Performed By: #### 1 4338-8, 11164-7, 2777-, 13500-9 ####[facility]ORATORYCLIA [id number] [address] STATES OF [facility] Sodium [Moles/Vol] 132 mmol/L Low 136-144 [facility] Comment on above: Order Comment: Speci men Type: BLOOD SPECIMENOrdering Facility: [facility] Address: [address] [place] [address] Performed By: #### 1 4338-8, , 2777-, 87889-1 ####[facility]ATORYCLIA [id number] [address] [place] Urea nitrogen [Mass/Vol] 34 mg/dL High 01-28 [facility] Comment on above: Order Comment: Speci men Type: BLOOD SPECIMENOrdering Facility: [facility] [place] Address: [address] [place] [address] Performed By: #### 1 4338-8, 87518-6, 2777-, 46897-2 ####[facility]ORYCLIA [id number] [address] [place] CBC W Auto Differential pane l (Bld)on 07-28-2021 Basophils (Bld) [#/Vol] 0.04 10*3/uL Normal <0.11 [facility] Comment on above: Order Comment: Speci men Type: BLOOD SPECIMENOrdering Facility: [facility] Address: [address] [place] [address] Performed By: #### 5 7021-8 ####[facility]ORATORYCLIA [id number] [address] STATES OF [facility] Basophils/100 WBC (Bld) 0.5 % Normal [facility] Comment on above: Order Comment: Speci men Type: BLOOD SPECIMENOrdering Facility: [facility] [place] Address: [address] [place] [address] Performed By: #### 5 7021-8 ####[facility]ATORYCLIA [id number] [address] Differential cell count method Nom (Bld) Auto Normal [facility] Comment on above: Order Comment: Speci men Type: BLOOD SPECIMENOrdering Facility: [facility] Address: [address] [place] [address] Performed By: #### 5 7021-8 ####[facility]ORATORYCLIA [id number] [address] Eosinophils (Bld) [#/Vol] 0.30 10*3/uL Normal <0.46 [facility] Comment on above: Order Comment: Speci men Type: BLOOD SPECIMENOrdering Facility: [facility] Address: [address] [place] [address] Performed By: #### 5 7021-8 ####[facility]ATORYCLIA [id number] [address] Eosinophils/100 WBC (Bld) 3.4 % Normal [facility] Comment on above: Order Comment: Speci men Type: BLOOD SPECIMENOrdering Facility: [facility] Address: [address] [place] [address] Performed By: #### 5 7021-8 ####[facility]ORYCLIA [id number] [address] Erythrocyte distribution width (RBC) [Ratio] 16.9 % High 11.5-15.0 [facility] Comment on above: Order Comment: Speci men Type: BLOOD SPECIMENOrdering Facility: [facility] Address: [address] [place] [address] Performed By: #### 5 7021-8 ####[facility]ATORYCLIA [id number] [address] Hematocrit (Bld) [Volume fraction] 30.3 % Low 39.0-51.0 [facility] Comment on above: Order Comment: Speci men Type: BLOOD SPECIMENOrdering Facility: [facility] Address: [address] [place] [address] Performed By: #### 5 7021-8 ####[facility]ORYCLIA [id number] [address] Hemoglobin (Bld) [Mass/Vol] 9.2 g/dL Low 13.0-17.0 [facility] Comment on above: Order Comment: Speci men Type: BLOOD SPECIMENOrdering Facility: [facility] Address: [address] [place] [address] Performed By: #### 5 7021-8 ####[facility]ATORYCLIA [id number] [address] IMMATURE GRAN % 0.6 % Normal [facility] Comment on above: Order Comment: Speci men Type: BLOOD SPECIMENOrdering Facility: [facility] Address: [address] [place] [address] Performed By: #### 5 7021-8 ####[facility]ATORYCLIA [id number] [address] IMMATURE GRAN ABS 0.05 k/uL Normal <0.10 [facility] Comment on above: Order Comment: Speci men Type: BLOOD SPECIMENOrdering Facility: [facility] Address: [address] [place] [address] Performed By: #### 5 7021-8 ####[facility]ORATORYCLIA [id number] [address] Lymphocytes (Bld) [#/Vol] 1.68 10*3/uL Normal 1.00-4.00 [facility] Comment on above: Order Comment: Speci men Type: BLOOD SPECIMENOrdering Facility: [facility] Address: [address] [place] [address] Performed By: #### 5 7021-8 ####[facility] LABORATORYCLIA [id number] [address] Lymphocytes/100 WBC (Bld) 19.2 % Normal [facility] Comment on above: Order Comment: Speci men Type: BLOOD SPECIMENOrdering Facility: [facility] Address: [address] [place] [address] Performed By: #### 5 7021-8 ####[facility] LABORATORYCLIA [id number] [address] MCH (RBC) [Entitic mass] 28.4 pg Normal 26.0-34.0 [facility] Comment on above: Order Comment: Speci men Type: BLOOD SPECIMENOrdering Facility: [facility] Address: [address] [place] [address] Performed By: #### 5 7021-8 ####[facility]ORATORYCLIA [id number] [address] MCHC (RBC) [Mass/Vol] 30.4 g/dL Low 30.5-36.0 [facility] Comment on above: Order Comment: Speci men Type: BLOOD SPECIMENOrdering Facility: [facility] Address: [address] [place] [address] Performed By: #### 5 7021-8 ####[facility]ORATORYCLIA [id number] [address] MCV (RBC) [Entitic vol] 93.5 fL Normal 80.0-100.0 [facility] Comment on above: Order Comment: Speci men Type: BLOOD SPECIMENOrdering Facility: [facility] Address: [address] [place] [address] Performed By: #### 5 7021-8 ####[facility]ORATORYCLIA [id number] [address] Monocytes (Bld) [#/Vol] 0.58 10*3/uL Normal <0.87 [facility] Comment on above: Order Comment: Speci men Type: BLOOD SPECIMENOrdering Facility: [facility] Address: [address] [place] [address] Performed By: #### 5 7021-8 ####[facility]ENTERCLIA [id number] [address] [place] Monocytes/100 WBC (Bld) 6.6 % Normal [facility] Comment on above: Order Comment: Speci men Type: BLOOD SPECIMENOrdering Facility: [facility] Address: [address] [place] [address] Performed By: #### 5 7021-8 ####[facility]ATORYCLIA [id number] [place] [address] [place] Neutrophils (Bld) [#/Vol] 6.11 10*3/uL Normal 1.45-7.50 [facility] Comment on above: Order Comment: Speci men Type: BLOOD SPECIMENOrdering Facility: [facility] Address: [address] [place] [address] Performed By: #### 5 7021-8 ####[facility]ORATORYCLIA [id number] [address] Neutrophils/100 WBC (Bld) 69.7 % Normal [facility] Comment on above: Order Comment: Speci men Type: BLOOD SPECIMENOrdering Facility: [facility] Address: [address] [place] [address] Performed By: #### 5 7021-8 ####[facility] LABORATORYCLIA [id number] [address] [place] Nucleated RBC (Bld) [#/Vol] 10*3/uL Normal <0.01 [facility] Comment on above: Order Comment: Speci men Type: BLOOD SPECIMENOrdering Facility: [facility] Address: [address] [place] [address] Performed By: #### 5 7021-8 ####[facility]ATORYCLIA [id number] [address] [place] Nucleated RBC/100 WBC (Bld) [Ratio] 0.0 /100 WBC Normal [facility] Comment on above: Order Comment: Speci men Type: BLOOD SPECIMENOrdering Facility: [facility] Address: [address] Performed By: #### 5 7021-8 ####[facility]ORATORYCLIA [id number] [address] STATES [facility] Platelet mean volume (Bld) [Entitic vol] 11.3 fL Normal 9.0-12.7 [facility] Comment on above: Order Comment: Speci men Type: BLOOD SPECIMENOrdering Facility: [facility] Address: [address] [place] [address] Performed By: #### 5 7021-8 ####[facility]ORATORYCLIA [id number] [place] [address] [place] Platelets (Bld) [#/Vol] 238 10*3/uL Normal 150-400 [facility] Comment on above: Order Comment: Speci men Type: BLOOD SPECIMENOrdering Facility: [facility] Address: [address] [place] [address] Performed By: #### 5 7021-8 ####[facility]ORATORYCLIA [id number] [address] [place] RBC (Bld) [#/Vol] 3.24 10*6/uL Low 4.20-6.00 [facility] Comment on above: Order Comment: Speci men Type: BLOOD SPECIMENOrdering Facility: [facility] Address: [address] [place] [address] Performed By: #### 5 7021-8 ####[facility]ORATORYCLIA [id number] [address] [place] WBC (Bld) [#/Vol] 8.76 10*3/uL Normal 3.70-11.00 [facility] Comment on above: Order Comment: Speci men Type: BLOOD SPECIMENOrdering Facility: [facility] Address: [address] [place], [place] [address] Performed By: #### 5 7021-8 ####[facility] LABORATORYCLIA [id number] [address] [place] MRI BRAIN WO/W IVCONon 07-28 MRI BRAIN WO/W IVCON Normal [facility] Magnesium SerPl-mCncon 07-28 Magnesium [Mass/Vol] 2.5 mg/dL High 1.7-2.3 [facility] Comment on above: Order Comment: Speci men Type: BLOOD SPECIMENOrdering Facility: [facility] Address: [address] [place] [address] Performed By: #### 1 4338-8, 69629-4, 277-1, 46348-5 ####[facility]ORATORYCLIA [id number] [address] OF [facility] NURSING PROGon 07-28-2021 NURSING PROG Normal [facility] NURSING PROG Normal [facility] Phosphate SerPl-mCncon 07-28 Phosphate [Mass/Vol] 2.8 mg/dL Normal 2.7-4.8 [facility] Comment on above: Order Comment: Speci men Type: BLOOD SPECIMENOrdering Facility: [facility] Address: [address] [place] [address] Performed By: #### 1 4338-8, 80572-6, 2776-05, 94827-7 ####[facility]ORATORYCLIA [id number] [address] [place] Prealbumin [Mass/Vol]on 07-06 Prealbumin Nephelometry [Mass/Vol] 25 mg/dL Normal 17-36 [facility] Comment on above: Order Comment: Speci men Type: BLOOD SPECIMENOrdering Facility: [facility] Address: [facility] [place] [address] Performed By: #### 1 4338-8, 49510-1, 277-, 28218-5 ####[facility]ORATORYCLIA [id number] [address] [place] aPTT PPPon 07-28-2021 aPTT Coag (PPP) [Time] 53.0 s High 23.0-32.4 [facility] Comment on above: Order Comment: Speci men Type: BLOOD SPECIMENOrdering Facility: [facility] Address: [address] [place] [address] Performed By: #### 1 4979-9 ####[facility]ORATORYCLIA [id number] [address] [place] aPTT Coag (PPP) [Time] 57.2 s High 23.0-32.4 [facility] Comment on above: Order Comment: Speci men Type: BLOOD SPECIMENOrdering Facility: [facility] Address: [address] [place] [address] Performed By: #### 1 4979-9 ####[facility]ORATORYCLIA [id number] [address] Bacteria CSF Culton 07-28-19 Bacteria identified Cx Nom (CSF) CULTURE, CSF: No growth 14 days GRAM STAIN: No organisms seen Rare Polymorphonuclear leukocytes Rare Red Blood Cells Gram stain performed on cytospun specimen. Normal [facility] Comment on above: Performed By: #### 6 06-4 ####[facility]ORATORYCLIA [id number] [address] Bacteria Spec Resp Culton Bacteria identified Respiratory culture Nom (Unsp spec) CULTURE, RESPIRATORY: Rare Normal respiratory chris present GRAM STAIN: No organisms seen Rare Polymorphonuclear leukocytes Rare Epithelial cells Normal [facility] Comment on above: Performed By: #### 3 2355-0 ####[facility]ORATORYCLIA [id number] [address] CASE MANAGEMon 07-27-2021 CASE MANAGEM Normal [facility] CBC W Auto Differential pane l (Bld)on 07-27-2021 Basophils (Bld) [#/Vol] 0.04 10*3/uL Normal <0.11 [facility] Comment on above: Order Comment: Speci men Type: BLOOD SPECIMENOrdering Facility: [facility] Address: [address] [place] [address] Performed By: #### 5 7021-8 ####[facility]ENTERCLIA [id number] [address] [place] Basophils/100 WBC (Bld) 0.4 % Normal [facility] Comment on above: Order Comment: Speci men Type: BLOOD SPECIMENOrdering Facility: [facility] Address: [address] [place] [address] Performed By: #### 5 7021-8 ####[facility]ORATORYCLIA [id number] [address] Differential cell count method Nom (Bld) Auto Normal [facility] Comment on above: Order Comment: Speci men Type: BLOOD SPECIMENOrdering Facility: [facility] Address: [address] [place] [address] Performed By: #### 5 7021-8 ####[facility]ORATORYCLIA [id number] [address] [place] Eosinophils (Bld) [#/Vol] 0.50 10*3/uL High <0.46 [facility] Comment on above: Order Comment: Speci men Type: BLOOD SPECIMENOrdering Facility: [facility] Address: [address] [place] [address] Performed By: #### 5 7021-8 ####[facility]ORATORYCLIA [id number] [address] [place] Eosinophils/100 WBC (Bld) 5.2 % Normal [facility] Comment on above: Order Comment: Speci men Type: BLOOD SPECIMENOrdering Facility: [facility] Address: [address] [place] [address] Performed By: #### 5 7021-8 ####[facility]ORATORYCLIA [id number] [address] Erythrocyte distribution width (RBC) [Ratio] 16.8 % High 11.5-15.0 [facility] Comment on above: Order Comment: Speci men Type: BLOOD SPECIMENOrdering Facility: [facility] Address: [address] [place] [address] Performed By: #### 5 7021-8 ####[facility]ORATORYCLIA [id number] [address] Hematocrit (Bld) [Volume fraction] 29.8 % Low 39.0-51.0 [facility] Comment on above: Order Comment: Speci men Type: BLOOD SPECIMENOrdering Facility: [facility] Address: [address] [place] [address] Performed By: #### 5 7021-8 ####[facility]ORATORYCLIA [id number] [address] Hemoglobin (Bld) [Mass/Vol] 9.0 g/dL Low 13.0-17.0 [facility] Comment on above: Order Comment: Speci men Type: BLOOD SPECIMENOrdering Facility: [facility] Address: [address] [place] [address] Performed By: #### 5 7021-8 ####[facility]ORATORYCLIA [id number] [address] IMMATURE GRAN % 0.6 % Normal [facility] Comment on above: Order Comment: Speci men Type: BLOOD SPECIMENOrdering Facility: [facility] Address: [address] [place] [address] Performed By: #### 5 7021-8 ####[facility]ORATORYCLIA [id number] [address] IMMATURE GRAN ABS 0.06 k/uL Normal <0.10 [facility] Comment on above: Order Comment: Speci men Type: BLOOD SPECIMENOrdering Facility: [facility] Address: [address] [place] [address] Performed By: #### 5 7021-8 ####[facility]ORATORYCLIA [id number] [address] Lymphocytes (Bld) [#/Vol] 1.73 10*3/uL Normal 1.00-4.00 [facility] Comment on above: Order Comment: Speci men Type: BLOOD SPECIMENOrdering Facility: [facility] Address: [address] [place] [address] Performed By: #### 5 7021-8 ####[facility]ORATORYCLIA [id number] [address] Lymphocytes/100 WBC (Bld) 17.9 % Normal [facility] Comment on above: Order Comment: Speci men Type: BLOOD SPECIMENOrdering Facility: [facility] Address: [address] [place] [address] Performed By: #### 5 7021-8 ####[facility]ORATORYCLIA [id number] [address] MCH (RBC) [Entitic mass] 28.1 pg Normal 26.0-34.0 [facility] Comment on above: Order Comment: Speci men Type: BLOOD SPECIMENOrdering Facility: [facility] Address: [address] [place] [address] Performed By: #### 5 7021-8 ####[facility]ORATORYCLIA [id number] [address] STATES OF [facility] MCHC (RBC) [Mass/Vol] 30.2 g/dL Low 30.5-36.0 [facility] Comment on above: Order Comment: Speci men Type: BLOOD SPECIMENOrdering Facility: [facility] Address: [address] [place] [address] Performed By: #### 5 7021-8 ####[facility]ORATORYCLIA [id number] [address] STATES OF [facility] MCV (RBC) [Entitic vol] 93.1 fL Normal 80.0-100.0 [facility] Comment on above: Order Comment: Speci men Type: BLOOD SPECIMENOrdering Facility: [facility] Address: [address] [place] [address] Performed By: #### 5 7021-8 ####[facility] LABORATORYCLIA [id number] [place] [address] [place] Monocytes (Bld) [#/Vol] 0.59 10*3/uL Normal <0.87 [facility] Comment on above: Order Comment: Speci men Type: BLOOD SPECIMENOrdering Facility: [facility] Address: [address] [place] [address] Performed By: #### 5 7021-8 ####[facility]ORATORYCLIA [id number] [address] [place] Monocytes/100 WBC (Bld) 6.1 % Normal [facility] Comment on above: Order Comment: Speci men Type: BLOOD SPECIMENOrdering Facility: [facility] Address: [address] [place] [address] Performed By: #### 5 7021-8 ####[facility]ORATORYCLIA [id number] [address] [place] Neutrophils (Bld) [#/Vol] 6.75 10*3/uL Normal 1.45-7.50 [facility] Comment on above: Order Comment: Speci men Type: BLOOD SPECIMENOrdering Facility: [facility] Address: [address] [place] [address] Performed By: #### 5 7021-8 ####[facility]ORATORYCLIA [id number] [address] [place] Neutrophils/100 WBC (Bld) 69.8 % Normal [facility] Comment on above: Order Comment: Speci men Type: BLOOD SPECIMENOrdering Facility: [facility] Address: [address] [place] [address] Performed By: #### 5 7021-8 ####[facility]ATORYCLIA [id number] [place] [address] [place] Nucleated RBC (Bld) [#/Vol] 10*3/uL Normal <0.01 [facility] Comment on above: Order Comment: Speci men Type: BLOOD SPECIMENOrdering Facility: [facility] Address: [address] [place] [address] Performed By: #### 5 7021-8 ####[facility]ORATORYCLIA [id number] [address] [place] Nucleated RBC/100 WBC (Bld) [Ratio] 0.0 /100 WBC Normal [facility] Comment on above: Order Comment: Speci men Type: BLOOD SPECIMENOrdering Facility: [facility] Address: [address] [place] [address] Performed By: #### 5 7021-8 ####[facility]ORATORYCLIA [id number] [address] [place] Platelet mean volume (Bld) [Entitic vol] 11.3 fL Normal 9.0-12.7 [facility] Comment on above: Order Comment: Speci men Type: BLOOD SPECIMENOrdering Facility: [facility] Address: [address] [place] [address] Performed By: #### 5 7021-8 ####[facility]ATORYCLIA [id number] [address] [place] Platelets (Bld) [#/Vol] 227 10*3/uL Normal 150-400 [facility] Comment on above: Order Comment: Speci men Type: BLOOD SPECIMENOrdering Facility: [facility] Address: [address] [place] [address] Performed By: #### 5 7021-8 ####[facility]ATORYCLIA [id number] [address] [place] RBC (Bld) [#/Vol] 3.20 10*6/uL Low 4.20-6.00 [facility] Comment on above: Order Comment: Speci men Type: BLOOD SPECIMENOrdering Facility: [facility] Address: [address] [place] [address] Performed By: #### 5 7021-8 ####[facility]ATORYCLIA [id number] [address] [place] WBC (Bld) [#/Vol] 9.67 10*3/uL Normal 3.70-11.00 [facility] Comment on above: Order Comment: Speci men Type: BLOOD SPECIMENOrdering Facility: [facility] Address: [address] [place] [address] Performed By: #### 5 7021-8 ####[facility]ORYCLIA [id number] [address] [place] CONSULT PROGon 07-27-2021 CONSULT PROG Normal [facility] CSF MANUAL DIFFon 07-27-2021 DIF TTL, CSF 100 cells counted Normal [facility] Comment on above: Order Comment: Speci men Type: CEREBROSPINAL FLUIDOrdering Facility: [facility] Address: [address] [place] [address] Performed By: #### L [id number], 82988-9, [id number] ####[facility]ATORYCLIA [id number] [place] [address] [place] LYMPH%, CSF 75 % Normal 50-90 [facility] Comment on above: Order Comment: Speci men Type: CEREBROSPINAL FLUIDOrdering Facility: [facility] Address: [address] [place] [address] Performed By: #### L [id number], 22528-4, [id number] ####[facility]ATORYCLIA [id number] [place] [address] [place] MONO%, CSF 22 % Normal 10-50 [facility] Comment on above: Order Comment: Speci men Type: CEREBROSPINAL FLUIDOrdering Facility: [facility] Address: [address] [place] [address] Performed By: #### L [id number], 38912-8, [id number] ####[facility]ATORYCLIA [id number] [address] [place] NEUT%, CSF 2 % Normal 0-3 [facility] Comment on above: Order Comment: Speci men Type: CEREBROSPINAL FLUIDOrdering Facility: [facility] Address: [address] [place] [address] Performed By: #### L [id number], 68925-3, [id number] ####[facility]ATORYCLIA [id number] [place] [address] [place] OTHER CL%, CSF 1 % Normal [facility] Comment on above: Order Comment: Speci men Type: CEREBROSPINAL FLUIDOrdering Facility: [facility] Address: [address] [place] [address] Result Comment: Path ologist review of microscopy results to follow Performed By: #### L [id number], 96148-6, [id number] ####[facility]ATORYCLIA [id number] [place] [address] [place] CSF PATHOLOGIST INTERP (LAB REFLEX ORDER-NO BILL)on 07-27-2021 CSF STAFF REVIEW Negative Normal [facility] Comment on above: Order Comment: Speci men Type: CEREBROSPINAL FLUIDOrdering Facility: [facility] Address: [address] [place] [address] Performed By: #### L [id number], 79153-5, [id number] ####[facility]ATORYCLIA [id number] [address] Pathologist name Reviewed by Amador Stevens MD Normal [facility] Comment on above: Order Comment: Speci men Type: CEREBROSPINAL FLUIDOrdering Facility: [facility] Address: [address] [place] [address] Performed By: #### L [id number], 36570-3, [id number] ####[facility]ORATORYCLIA [id number] [address] Cell count panel (CSF)on Clarity (CSF) Clear Normal Clear [facility] Comment on above: Order Comment: Speci men Type: CEREBROSPINAL FLUIDOrdering Facility: [facility] Address: [address] [place] [address] Performed By: #### L [id number], 85487-7, [id number] ####[facility]ORATORYCLIA [id number] [address] [place] Clarity (Unsp spec) Not Indicated Normal Clear [facility] Comment on above: Order Comment: Speci men Type: CEREBROSPINAL FLUIDOrdering Facility: [facility] Address: [address] [place] [address] Performed By: #### L [id number], 39318-1, [id number] ####[facility]ORATORYCLIA [id number] [address] Color (CSF) Colorless Normal Colorless [facility] Comment on above: Order Comment: Speci men Type: CEREBROSPINAL FLUIDOrdering Facility: [facility] Address: [address] [place] [address] Performed By: #### L [id number], 25381-4, [id number] ####[facility]ATORYCLIA [id number] [address] Color (Spun CSF) Not Indicated Normal Colorless [facility] Comment on above: Order Comment: Speci men Type: CEREBROSPINAL FLUIDOrdering Facility: [facility] Address: [address] [place] [address] Performed By: #### L [id number], 05790-8, [id number] ####[facility]ORATORYCLIA [id number] [address] CSF [employer] Normal [facility] Comment on above: Order Comment: Speci men Type: CEREBROSPINAL FLUIDOrdering Facility: [facility] Address: [address] [place] [address] Performed By: #### L [id number], 01987-0, [id number] ####[facility]ORYCLIA [id number] [address] RBC Manual cnt (CSF) [#/Vol] 39 cells/uL High 0-5 [facility] Comment on above: Order Comment: Speci men Type: CEREBROSPINAL FLUIDOrdering Facility: [facility] Address: [address] [place] [address] Performed By: #### L [id number], 55607-5, [id number] ####[facility]ORYCLIA [id number] [address] [place] WBC Manual cnt (CSF) [#/Vol] 14 cells/uL High 0-5 [facility] Comment on above: Order Comment: Speci men Type: CEREBROSPINAL FLUIDOrdering Facility: [facility] Address: [address] [place] [address] Performed By: #### L [id number], 46637-7, [id number] ####[facility]ORATORYCLIA [id number] [place] [address] [place] Glucose CSF-mCncon 2 Glucose (CSF) [Mass/Vol] 64 mg/dL Normal 40-70 [facility] Comment on above: Order Comment: Speci men Type: CEREBROSPINAL FLUIDOrdering Facility: [facility] Address: [address] [place] [address] Result Comment: Lumb ar CSF glucose values of healthy patients are approximately 60% of the plasma values and must always be compared with a concurrently measured plasma value for adequate clinical interpretation.References: 1. Glucose HK (GLUC3) [package insert V 12.0 Estonian]. [employer], [place], [place]. September 2015. 2. Michelle Moore, Loki, H. (2015). Chapter 7: Glucose and Lactate. Marianela Alcocer al.(eds.), Cerebrospinal Fluid in Clinical Neurology. [place]: [employer]. Performed By: #### 2 342-4, 2880-3 ####[facility]ATORYCLIA [id number] [place] [address] [place] NUTRITIONon 07-27-2021 NUTRITION Normal [facility] Prot CSF-mCncon 07-27-2021 Protein (CSF) [Mass/Vol] 58 mg/dL High 15-45 [facility] Comment on above: Order Comment: Speci men Type: CEREBROSPINAL FLUIDOrdering Facility: [facility] Address: [address] [place] [address] Performed By: #### 2 342-4, 2880-3 ####[facility]ORATORYCLIA [id number] [address] [place] aPTT PPPon 07-27-2021 aPTT Coag (PPP) [Time] 68.4 s High 23.0-32.4 [facility] Comment on above: Order Comment: Speci men Type: BLOOD SPECIMENOrdering Facility: [facility] Address: [address] [place] [address] Performed By: #### 1 4979-9 ####[facility]ORATORYCLIA [id number] [address] aPTT Coag (PPP) [Time] 51.3 s High 23.0-32.4 [facility] Comment on above: Order Comment: Speci men Type: BLOOD SPECIMENOrdering Facility: [facility] Address: [address] [place] [address] Performed By: #### 1 4979-9 ####[facility]ORATORYCLIA [id number] [address] ALLIED HEALTHon 07-26-2021 ALLIED HEALTH HNO ID: [id number] Author: Stephanie Maldonado, publicity writer Service: Radiology Author Type: Sheep Sorter Type: Allied Health Filed: 07/26/2021 4:10 PM Note Text: Spoke with nurse. Pt getting new EVD today. Try tomorrow. Normal [facility] Bacteria CSF Culton 07-27-19 Bacteria identified Cx Nom (CSF) Abnormal [facility] Comment on above: Performed By: #### 6 06-4 ####[facility]ORATORYCLIA [id number] [address] STATES OF [facility] Basic metabolic 2000 panelon 07-26-2021 Anion gap [Moles/Vol] 6 mmol/L Low 9-18 [facility] Comment on above: Order Comment: Speci men Type: BLOOD SPECIMENOrdering Facility: [facility] Address: [address] [place] [address] Performed By: #### 2 4321-2 ####[facility]ORATORYCLIA [id number] [address] Calcium [Mass/Vol] 9.2 mg/dL Normal 8.5-10.2 [facility] Comment on above: Order Comment: Speci men Type: BLOOD SPECIMENOrdering Facility: [facility] Address: [address] [place] [address] Performed By: #### 2 4321-2 ####[facility]ORATORYCLIA [id number] [place] [address] [place] Chloride [Moles/Vol] 99 mmol/L Normal 97-105 [facility] Comment on above: Order Comment: Speci men Type: BLOOD SPECIMENOrdering Facility: [facility] Address: [address] [place] [address] Performed By: #### 2 4321-2 ####[facility]ORATORYCLIA [id number] [place] [address] [place] CO2 [Moles/Vol] 32 mmol/L High 22-30 [facility] Comment on above: Order Comment: Speci men Type: BLOOD SPECIMENOrdering Facility: [facility] Address: [address] [place] [address] Performed By: #### 2 4321-2 ####[facility]ORATORYCLIA [id number] [address] [place] Creatinine [Mass/Vol] 0.74 mg/dL Normal 0.73-1.22 [facility] Comment on above: Order Comment: Speci men Type: BLOOD SPECIMENOrdering Facility: [facility] Address: [address] [place] [address] Performed By: #### 2 4321-2 ####[facility]ORATORYCLIA [id number] [address] [place] ESTIMATED GLOMERULAR FILTRATION RATE 98 mL/min/1.73m??? Normal >=60 [facility] Comment on above: Order Comment: Speci men Type: BLOOD SPECIMENOrdering Facility: [facility] Address: [address] [place] [address] Result Comment: Luzmaria mated Glomerular Filtration Rate [...] Performed By: #### 2 4321-2 ####[facility]ORATORYCLIA [id number] [place] [address] [place] Glucose [Mass/Vol] 126 mg/dL High 74-99 [facility] Comment on above: Order Comment: Speci men Type: BLOOD SPECIMENOrdering Facility: [facility] Address: [address] [place], [place] [id number] Result Comment: The [place] [employer] (ADA) provides guidance for cutoff [...] Standards of Medical Care in Diabetes 2016, [place] [employer]. Diabetes Care. 2016.39(Suppl 1). Performed By: #### 2 4321-2 ####[facility]ORATORYCLIA [id number] [place] [address] [place] Potassium [Moles/Vol] 4.2 mmol/L Normal 3.7-5.1 [facility] Comment on above: Order Comment: Speci men Type: BLOOD SPECIMENOrdering Facility: [facility] Address: [address] [place] [id number] Performed By: #### 2 4321-2 ####[facility]ORATORYCLIA [id number] [place] [address] [place] Sodium [Moles/Vol] 137 mmol/L Normal 136-144 [facility] Comment on above: Order Comment: Speci men Type: BLOOD SPECIMENOrdering Facility: [facility] Address: [address] [place] [address] Performed By: #### 2 4321-2 ####[facility] LABORATORYCLIA [id number] [address] STATES [facility] Urea nitrogen [Mass/Vol] 36 mg/dL High 9-24 [facility] Comment on above: Order Comment: Speci men Type: BLOOD SPECIMENOrdering Facility: [facility] Address: [address] [place] [address] Performed By: #### 2 4321-2 ####[facility]ORATORYCLIA [id number] [address] [place] CBC W Auto Differential pane l (Bld)on 07-26-2021 Basophils (Bld) [#/Vol] 0.04 10*3/uL Normal <0.11 [facility] Comment on above: Order Comment: Speci men Type: BLOOD SPECIMENOrdering Facility: [facility] Address: [address] [place] [address] Performed By: #### 5 7021-8 ####[facility]ORATORYCLIA [id number] [address] [place] Basophils/100 WBC (Bld) 0.4 % Normal [facility] Comment on above: Order Comment: Speci men Type: BLOOD SPECIMENOrdering Facility: [facility] Address: [address] [place] [address] Performed By: #### 5 7021-8 ####[facility] LABORATORYCLIA [id number] [address] STATES [facility] Differential cell count method Nom (Bld) Auto Normal [facility] Comment on above: Order Comment: Speci men Type: BLOOD SPECIMENOrdering Facility: [facility] Address: [address] [place] [address] Performed By: #### 5 7021-8 ####[facility]ORATORYCLIA [id number] [place] [address] [place] Eosinophils (Bld) [#/Vol] 0.63 10*3/uL High <0.46 [facility] Comment on above: Order Comment: Speci men Type: BLOOD SPECIMENOrdering Facility: [facility] Address: [address] [place] [address] Performed By: #### 5 7021-8 ####[facility]ORATORYCLIA [id number] [address] STATES [facility] Eosinophils/100 WBC (Bld) 5.8 % Normal [facility] Comment on above: Order Comment: Speci men Type: BLOOD SPECIMENOrdering Facility: [facility] Address: [address] [place] [address] Performed By: #### 5 7021-8 ####[facility]ORATORYCLIA [id number] [address] [place] Erythrocyte distribution width (RBC) [Ratio] 16.8 % High 11.5-15.0 [facility] Comment on above: Order Comment: Speci men Type: BLOOD SPECIMENOrdering Facility: [facility] Address: [address] [place] [address] Performed By: #### 5 7021-8 ####[facility]ORATORYCLIA [id number] [address] STATES OF [facility] Hematocrit (Bld) [Volume fraction] 31.2 % Low 39.0-51.0 [facility] Comment on above: Order Comment: Speci men Type: BLOOD SPECIMENOrdering Facility: [facility] Address: [address] [place] [address] Performed By: #### 5 7021-8 ####[facility]ORATORYCLIA [id number] [address] [place] Hemoglobin (Bld) [Mass/Vol] 9.1 g/dL Low 13.0-17.0 [facility] Comment on above: Order Comment: Speci men Type: BLOOD SPECIMENOrdering Facility: [facility] Address: [address] [place] [address] Performed By: #### 5 7021-8 ####[facility]ORATORYCLIA [id number] [address] IMMATURE GRAN % 0.6 % Normal [facility] Comment on above: Order Comment: Speci men Type: BLOOD SPECIMENOrdering Facility: [facility] Address: [address] [place] [address] Performed By: #### 5 7021-8 ####[facility]ORATORYCLIA [id number] [address] IMMATURE GRAN ABS 0.07 k/uL Normal <0.10 [facility] Comment on above: Order Comment: Speci men Type: BLOOD SPECIMENOrdering Facility: [facility] Address: [address] [place] [address] Performed By: #### 5 7021-8 ####[facility]ORATORYCLIA [id number] [address] STATES [facility] Lymphocytes (Bld) [#/Vol] 2.16 10*3/uL Normal 1.00-4.00 [facility] Comment on above: Order Comment: Speci men Type: BLOOD SPECIMENOrdering Facility: [facility] Address: [address] [place] [address] Performed By: #### 5 7021-8 ####[facility]ORATORYCLIA [id number] [address] Lymphocytes/100 WBC (Bld) 20.0 % Normal [facility] Comment on above: Order Comment: Speci men Type: BLOOD SPECIMENOrdering Facility: [facility] Address: [address] [place] [address] Performed By: #### 5 7021-8 ####[facility]ORATORYCLIA [id number] [address] STATES [facility] MCH (RBC) [Entitic mass] 27.7 pg Normal 26.0-34.0 [facility] Comment on above: Order Comment: Speci men Type: BLOOD SPECIMENOrdering Facility: [facility] Address: [address] [place] [address] Performed By: #### 5 7021-8 ####[facility]ORATORYCLIA [id number] [address] STATES [facility] MCHC (RBC) [Mass/Vol] 29.2 g/dL Low 30.5-36.0 [facility] Comment on above: Order Comment: Speci men Type: BLOOD SPECIMENOrdering Facility: [facility] Address: [address] [place] [address] Performed By: #### 5 7021-8 ####[facility]ORATORYCLIA [id number] [address] [place] MCV (RBC) [Entitic vol] 95.1 fL Normal 80.0-100.0 [facility] Comment on above: Order Comment: Speci men Type: BLOOD SPECIMENOrdering Facility: [facility] Address: [address] [place] [address] Performed By: #### 5 7021-8 ####[facility]ORATORYCLIA [id number] [address] STATES [place] [facility] Monocytes (Bld) [#/Vol] 0.63 10*3/uL Normal <0.87 [facility] Comment on above: Order Comment: Speci men Type: BLOOD SPECIMENOrdering Facility: [facility] Address: [address] [place] [address] Performed By: #### 5 7021-8 ####[facility]ORATORYCLIA [id number] [address] Monocytes/100 WBC (Bld) 5.8 % Normal [facility] Comment on above: Order Comment: Speci men Type: BLOOD SPECIMENOrdering Facility: [facility] Address: [address] [place] [address] Performed By: #### 5 7021-8 ####[facility]ORATORYCLIA [id number] [address] [place] Neutrophils (Bld) [#/Vol] 7.25 10*3/uL Normal 1.45-7.50 [facility] Comment on above: Order Comment: Speci men Type: BLOOD SPECIMENOrdering Facility: [facility] Address: [address] [place] [address] Performed By: #### 5 7021-8 ####[facility]ORATORYCLIA [id number] [address] Neutrophils/100 WBC (Bld) 67.4 % Normal [facility] Comment on above: Order Comment: Speci men Type: BLOOD SPECIMENOrdering Facility: [facility] Address: [address] [place] [address] Performed By: #### 5 7021-8 ####[facility]ORATORYCLIA [id number] [address] [place] Nucleated RBC (Bld) [#/Vol] 10*3/uL Normal <0.01 [facility] Comment on above: Order Comment: Speci men Type: BLOOD SPECIMENOrdering Facility: [facility] Address: [address] [place] [address] Performed By: #### 5 7021-8 ####[facility]ORATORYCLIA [id number] [address] Nucleated RBC/100 WBC (Bld) [Ratio] 0.0 /100 WBC Normal [facility] Comment on above: Order Comment: Speci men Type: BLOOD SPECIMENOrdering Facility: [facility] Address: [address] [place] [address] Performed By: #### 5 7021-8 ####[facility]ORATORYCLIA [id number] [address] [place] Platelet mean volume (Bld) [Entitic vol] 11.2 fL Normal 9.0-12.7 [facility] Comment on above: Order Comment: Speci men Type: BLOOD SPECIMENOrdering Facility: [facility] Address: [address] [place] [address] Performed By: #### 5 7021-8 ####[facility]ORATORYCLIA [id number] [address] [place] [facility] Platelets (Bld) [#/Vol] 245 10*3/uL Normal 150-400 [facility] Comment on above: Order Comment: Speci men Type: BLOOD SPECIMENOrdering Facility: [facility] Address: [address] [place] [address] Performed By: #### 5 7021-8 ####[facility]ORATORYCLIA [id number] [place] [address] [place] RBC (Bld) [#/Vol] 3.28 10*6/uL Low 4.20-6.00 [facility] Comment on above: Order Comment: Speci men Type: BLOOD SPECIMENOrdering Facility: [facility] Address: [address] [place] [address] Performed By: #### 5 7021-8 ####[facility]ORATORYCLIA [id number] [address] [place] [facility] WBC (Bld) [#/Vol] 10.78 10*3/uL Normal 3.70-11.00 [facility] Comment on above: Order Comment: Speci men Type: BLOOD SPECIMENOrdering Facility: [facility] Address: [address] [place] [address] Performed By: #### 5 7021-8 ####[facility]ORATORYCLIA [id number] [address] STATES OF [facility] CSF MANUAL DIFFon 07-26-2021 DIF TTL, CSF 100 cells counted Normal [facility] Comment on above: Order Comment: Speci men Type: CEREBROSPINAL FLUIDOrdering Facility: [facility] Address: [address] [place] [address] Performed By: #### 3 4563-7, [id number], [id number] ####[facility]ORATORYCLIA [id number] [address] [place] LYMPH%, CSF 26 % Low 50-90 [facility] Comment on above: Order Comment: Speci men Type: CEREBROSPINAL FLUIDOrdering Facility: [facility] Address: [address] [address] Performed By: #### 3 4563-7, [id number], [id number] ####[facility]ORATORYCLIA [id number] [place] [address] [place] MACRO%, CSF 10 % High <1 [facility] Comment on above: Order Comment: Speci men Type: CEREBROSPINAL FLUIDOrdering Facility: [facility] Address: [address] [place] [address] Performed By: #### 3 4563-7, [id number], [id number] ####[facility]ORATORYCLIA [id number] [place] [address] [place] MONO%, CSF 20 % Normal 10-50 [facility] Comment on above: Order Comment: Speci men Type: CEREBROSPINAL FLUIDOrdering Facility: [facility] Address: [address] [place] [address] Performed By: #### 3 4563-7, [id number], [id number] ####[facility]ORATORYCLIA [id number] [place] [address] [place] NEUT%, CSF 40 % High 0-3 [facility] Comment on above: Order Comment: Speci men Type: CEREBROSPINAL FLUIDOrdering Facility: [facility] Address: [address] [place] [address] Performed By: #### 3 4563-7, [id number], [id number] ####[facility]ATORYCLIA [id number] [address] [place] OTHER CL%, CSF 2 % Normal [facility] Comment on above: Order Comment: Speci men Type: CEREBROSPINAL FLUIDOrdering Facility: [facility] Address: [address] [place] [address] Result Comment: Path review to follow. Performed By: #### 3 4563-7, [id number], [id number] ####[facility]ATORYCLIA [id number] [place] [address] [place] REAC LYMPH %, CSF 2 % Normal [facility] Comment on above: Order Comment: Speci men Type: CEREBROSPINAL FLUIDOrdering Facility: [facility] Address: [address] [place] [address] Performed By: #### 3 4563-7, [id number], [id number] ####[facility]ORATORYCLIA [id number] [address] [place] CSF PATHOLOGIST INTERP (LAB REFLEX ORDER-NO BILL)on 07-26-2021 CSF STAFF REVIEW Negative for maligna nt cells. Rare bacteria present, cocci in pairs and chains. Correlation with CSF cultures is recommended. Normal [facility] Comment on above: Order Comment: Speci men Type: CEREBROSPINAL FLUIDOrdering Facility: [facility] Address: [address] [place] [address] Performed By: #### 3 4563-7, [id number], [id number] ####[facility]ORATORYCLIA [id number] [address] Pathologist name Reviewed by Amador Stevens MD [facility] Comment on above: Order Comment: Speci men Type: CEREBROSPINAL FLUIDOrdering Facility: [facility] Address: [address] [place] [address] Performed By: #### 3 4563-7, [id number], [id number] ####[facility]ORATORYCLIA [id number] [address] Cell count panel (CSF)on Clarity (CSF) Slightly Cloudy Abnormal Clear [facility] Comment on above: Order Comment: Speci men Type: CEREBROSPINAL FLUIDOrdering Facility: [facility] Address: [address] [place] [address] Performed By: #### 3 4563-7, [id number], [id number] ####[facility]ORATORYCLIA [id number] [address] [place] Clarity (Unsp spec) Clear Normal Clear [facility] Comment on above: Order Comment: Speci men Type: CEREBROSPINAL FLUIDOrdering Facility: [facility] Address: [address] [address] Performed By: #### 3 4563-7, [id number], [id number] ####[facility]ORATORYCLIA [id number] [address] Color (CSF) Colorless Normal Colorless [facility] Comment on above: Order Comment: Speci men Type: CEREBROSPINAL FLUIDOrdering Facility: [facility] Address: [facility] [address] Performed By: #### 3 4563-7, [id number], [id number] ####[facility]ORATORYCLIA [id number] [address] Color (Spun CSF) Not Indicated Normal Colorless [facility] Comment on above: Order Comment: Speci men Type: CEREBROSPINAL FLUIDOrdering Facility: [facility] Address: [address] [place] [address] Performed By: #### 3 4563-7, [id number], [id number] ####[facility]ORATORYCLIA [id number] [address] CSF T[employer] Normal [facility] Comment on above: Order Comment: Speci men Type: CEREBROSPINAL FLUIDOrdering Facility: [facility] Address: [address] [place] [address] Performed By: #### 3 4563-7, [id number], [id number] ####[facility]ORATORYCLIA [id number] [address] RBC Manual cnt (CSF) [#/Vol] 1 cells/uL Normal 0-5 [facility] Comment on above: Order Comment: Speci men Type: CEREBROSPINAL FLUIDOrdering Facility: [facility] Address: [facility] [address] [address] Performed By: #### 3 4563-7, [id number], [id number] ####[facility]ORATORYCLIA [id number] [address] WBC Manual cnt (CSF) [#/Vol] 50 cells/uL High 0-5 [facility] Comment on above: Order Comment: Speci men Type: CEREBROSPINAL FLUIDOrdering Facility: [facility] Address: [address] [place] [address] Performed By: #### 3 4563-7, [id number], [id number] ####[facility]ORATORYCLIA [id number] [place] [address] [place] [facility] Glucose CSF-ncon Glucose (CSF) [Mass/Vol] 64 mg/dL Normal 40-70 [facility] Comment on above: Order Comment: Speci men Type: CEREBROSPINAL FLUIDOrdering Facility: [facility] Address: [address] [place] [address] Result Comment: Lumb ar CSF glucose values of healthy patients are approximately 60% of the plasma values and must always be compared with a concurrently measured plasma value for adequate clinical interpretation.References: 1. Glucose HK (GLUC3) [package insert V 12.0 Estonian]. [employer], [place], [place]. September 2015. 2. Michelle Moore, Loki HGarfield (2015). Chapter 7: Glucose and Lactate. F. Irina rose al.(eds.), Cerebrospinal Fluid in Clinical Neurology. [place]: [employer]. Performed By: #### 2 880-3, 2342-4 ####[facility]ORATORYCLIA [id number] [place] [address] [place] Magnesium SerPl-ncon 07-26 Magnesium [Mass/Vol] 2.3 mg/dL Normal 1.7-2.3 [facility] Comment on above: Order Comment: Speci men Type: BLOOD SPECIMENOrdering Facility: [facility] Address: [address] [place] [address] Performed By: #### 1 9123-9, 2777-1, 3016-3 ####[facility]ORATORYCLIA [id number] [place] [address] [place] NURSING PROGon 07-26-2021 NURSING PROG Normal [facility] Phosphate SerPl-ncon 07-26 Phosphate [Mass/Vol] 2.6 mg/dL Low 2.7-4.8 [facility] Comment on above: Order Comment: Speci men Type: BLOOD SPECIMENOrdering Facility: [facility] Address: [address] [place] [address] Performed By: #### 1 9123-9, 2777-1, 3016-3 ####[facility]ORATORYCLIA [id number] [place] [address] [place] Prot CSF-mCncon 07-26-2021 Protein (CSF) [Mass/Vol] 64 mg/dL High 15-45 [facility] Comment on above: Order Comment: Speci men Type: CEREBROSPINAL FLUIDOrdering Facility: [facility] Address: [address] [place] [address] Performed By: #### 2 880-3, 2342-4 ####[facility]ORATORYCLIA [id number] [address] OF [facility] THERAPY NTon 07-26-2021 THERAPY NT Normal [facility] TSH SerPl-aCncon 07-26-2021 TSH Qn 1.470 m[IU]/L Normal 0.270-4.200 [facility] Comment on above: Order Comment: Speci men Type: BLOOD SPECIMENOrdering Facility: [facility] Address: [address] [place] [address] Performed By: #### 1 9123-9, 2777-1, 3016-3 ####[facility] LABORATORYCLIA [id number] [address] OF [place] VITAMIN B12 BLOODon 07-27-19 Cobalamin (Vitamin B12) [Mass/Vol] 934 pg/mL Normal 232-1,245 [facility] Comment on above: Order Comment: Speci men Type: BLOOD SPECIMENOrdering Facility: [facility] Address: [address] [place] [address] Performed By: #### B 12 ####[facility] LABORATORYCLIA [id number] [address] [place] aPTT PPPon 07-26-2021 aPTT Coag (PPP) [Time] 53.6 s High 23.0-32.4 [facility] Comment on above: Order Comment: Speci men Type: BLOOD SPECIMENOrdering Facility: [facility] Address: [address] [place] [address] Performed By: #### 1 4979-9 ####[facility]ORATORYCLIA [id number] [address] aPTT Coag (PPP) [Time] 44.9 s High 23.0-32.4 [facility] Comment on above: Order Comment: Speci men Type: BLOOD SPECIMENOrdering Facility: [facility] Address: [address] [place] [address] Performed By: #### 1 4979-9 ####[facility]ORATORYCLIA [id number] [address] ALLIED HEALTHon 07-25-2021 ALLIED HEALTH HNO ID: [id number] Author: RT Rajwinder(R) Service: Radiology Author Type: Technologist Type: Allied Health Filed: 07/25/2021 1:37 PM Note Text: Called floor for MRI screening form [id number] Normal [facility] Bacteria Bld Culton 07-26-19 Bacteria identified Cx Nom (Bld) CULTURE, BLOOD: No growth 5 days Normal [facility] Comment on above: Performed By: #### 6 00-7 ####[facility]ATORYCLIA [id number] [address] Bacteria identified Cx Nom (Bld) CULTURE, BLOOD: No growth 5 days Normal [facility] Comment on above: Performed By: #### 6 00-7 ####[facility]ORATORYCLIA [id number] [address] CASE MANAGEMon 07-25-2021 CASE MANAGEM Normal [facility] CBC W Auto Differential pane l (Bld)on 07-25-2021 Basophils (Bld) [#/Vol] 0.06 10*3/uL Normal <0.11 [facility] Comment on above: Order Comment: Speci men Type: BLOOD SPECIMENOrdering Facility: [facility] Address: [address] [place] [address] Performed By: #### 5 7021-8 ####[facility]ORATORYCLIA [id number] [place] [address] [place] Basophils/100 WBC (Bld) 0.6 % Normal [facility] Comment on above: Order Comment: Speci men Type: BLOOD SPECIMENOrdering Facility: [facility] Address: [address] [place] [address] Performed By: #### 5 7021-8 ####[facility]ATORYCLIA [id number] [address] [place] Differential cell count method Nom (Bld) Auto Normal [facility] Comment on above: Order Comment: Speci men Type: BLOOD SPECIMENOrdering Facility: [facility] Address: [address] [place] [address] Performed By: #### 5 7021-8 ####[facility]ORATORYCLIA [id number] [address] [place] Eosinophils (Bld) [#/Vol] 0.26 10*3/uL Normal <0.46 [facility] Comment on above: Order Comment: Speci men Type: BLOOD SPECIMENOrdering Facility: [facility] Address: [address] [place] [address] Performed By: #### 5 7021-8 ####[facility]ATORYCLIA [id number] [address] [place] Eosinophils/100 WBC (Bld) 2.5 % Normal [facility] Comment on above: Order Comment: Speci men Type: BLOOD SPECIMENOrdering Facility: [facility] Address: [address] [place] [address] Performed By: #### 5 7021-8 ####[facility]ATORYCLIA [id number] [address] Erythrocyte distribution width (RBC) [Ratio] 16.9 % High 11.5-15.0 [facility] Comment on above: Order Comment: Speci men Type: BLOOD SPECIMENOrdering Facility: [facility] Address: [address] [place] [address] Performed By: #### 5 7021-8 ####[facility] LABORATORYCLIA [id number] [address] OF [facility] Hematocrit (Bld) [Volume fraction] 29.6 % Low 39.0-51.0 [facility] Comment on above: Order Comment: Speci men Type: BLOOD SPECIMENOrdering Facility: [facility] Address: [address] [place] [address] Performed By: #### 5 7021-8 ####[facility]ORATORYCLIA [id number] [address] STATES OF [facility] Hemoglobin (Bld) [Mass/Vol] 8.8 g/dL Low 13.0-17.0 [facility] Comment on above: Order Comment: Speci men Type: BLOOD SPECIMENOrdering Facility: [facility] Address: [address] [place] [address] Performed By: #### 5 7021-8 ####[facility]ORATORYCLIA [id number] [address] [place] IMMATURE GRAN % 0.6 % Normal [facility] Comment on above: Order Comment: Speci men Type: BLOOD SPECIMENOrdering Facility: [facility] Address: [address] [place] [address] Performed By: #### 5 7021-8 ####[facility]ORATORYCLIA [id number] [address] IMMATURE GRAN ABS 0.06 k/uL Normal <0.10 [facility] Comment on above: Order Comment: Speci men Type: BLOOD SPECIMENOrdering Facility: [facility] Address: [address] [place] [address] Performed By: #### 5 7021-8 ####[facility] LABORATORYCLIA [id number] [address] [place] Lymphocytes (Bld) [#/Vol] 2.15 10*3/uL Normal 1.00-4.00 [facility] Comment on above: Order Comment: Speci men Type: BLOOD SPECIMENOrdering Facility: [facility] Address: [address] [place] [address] Performed By: #### 5 7021-8 ####[facility]ORATORYCLIA [id number] [address] Lymphocytes/100 WBC (Bld) 20.7 % Normal [facility] Comment on above: Order Comment: Speci men Type: BLOOD SPECIMENOrdering Facility: [facility] Address: [address] [place] [address] Performed By: #### 5 7021-8 ####[facility]ORATORYCLIA [id number] [address] MCH (RBC) [Entitic mass] 28.2 pg Normal 26.0-34.0 [facility] Comment on above: Order Comment: Speci men Type: BLOOD SPECIMENOrdering Facility: [facility] Address: [address] [place] [address] Performed By: #### 5 7021-8 ####[facility]ORATORYCLIA [id number] [address] STATES OF [facility] MCHC (RBC) [Mass/Vol] 29.7 g/dL Low 30.5-36.0 [facility] Comment on above: Order Comment: Speci men Type: BLOOD SPECIMENOrdering Facility: [facility] Address: [address] [place] [address] Performed By: #### 5 7021-8 ####[facility] LABORATORYCLIA [id number] [address] STATES OF [facility] MCV (RBC) [Entitic vol] 94.9 fL Normal 80.0-100.0 [facility] Comment on above: Order Comment: Speci men Type: BLOOD SPECIMENOrdering Facility: [facility] Address: [address] [place] [address] Performed By: #### 5 7021-8 ####[facility]ORATORYCLIA [id number] [address] [place] Monocytes (Bld) [#/Vol] 0.62 10*3/uL Normal <0.87 [facility] Comment on above: Order Comment: Speci men Type: BLOOD SPECIMENOrdering Facility: [facility] Address: [address] [place] [address] Performed By: #### 5 7021-8 ####[facility]ORATORYCLIA [id number] [address] Monocytes/100 WBC (Bld) 6.0 % Normal [facility] Comment on above: Order Comment: Speci men Type: BLOOD SPECIMENOrdering Facility: [facility] Address: [address] [place] [address] Performed By: #### 5 7021-8 ####[facility] LABORATORYCLIA [id number] [address] [place] Neutrophils (Bld) [#/Vol] 7.25 10*3/uL Normal 1.45-7.50 [facility] Comment on above: Order Comment: Speci men Type: BLOOD SPECIMENOrdering Facility: [facility] Address: [address] [place] [address] Performed By: #### 5 7021-8 ####[facility]ORATORYCLIA [id number] [address] [place] Neutrophils/100 WBC (Bld) 69.6 % Normal [facility] Comment on above: Order Comment: Speci men Type: BLOOD SPECIMENOrdering Facility: [facility] Address: [address] [place] [address] Performed By: #### 5 7021-8 ####[facility] LABORATORYCLIA [id number] [place] [address] [place] Nucleated RBC (Bld) [#/Vol] 10*3/uL Normal <0.01 [facility] Comment on above: Order Comment: Speci men Type: BLOOD SPECIMENOrdering Facility: [facility] Address: [address] [place] [address] Performed By: #### 5 7021-8 ####[facility] LABORATORYCLIA [id number] [place] [address] [place] Nucleated RBC/100 WBC (Bld) [Ratio] 0.0 /100 WBC Normal [facility] Comment on above: Order Comment: Speci men Type: BLOOD SPECIMENOrdering Facility: [facility] Address: [address] [place] [address] Performed By: #### 5 7021-8 ####[facility] LABORATORYCLIA [id number] [place] [address] [place] Platelet mean volume (Bld) [Entitic vol] 11.3 fL Normal 9.0-12.7 [facility] Comment on above: Order Comment: Speci men Type: BLOOD SPECIMENOrdering Facility: [facility] Address: [address] [place] [address] Performed By: #### 5 7021-8 ####[facility]ORATORYCLIA [id number] [place] [address] [place] Platelets (Bld) [#/Vol] 243 10*3/uL Normal 150-400 [facility] Comment on above: Order Comment: Speci men Type: BLOOD SPECIMENOrdering Facility: [facility] Address: [address] Performed By: #### 5 7021-8 ####[facility] LABORATORYCLIA [id number] [place] [address] [place] RBC (Bld) [#/Vol] 3.12 10*6/uL Low 4.20-6.00 [facility] Comment on above: Order Comment: Speci men Type: BLOOD SPECIMENOrdering Facility: [facility] Address: [address] [place] [address] Performed By: #### 5 7021-8 ####[facility]ORATORYCLIA [id number] [place] [address] [place] WBC (Bld) [#/Vol] 10.40 10*3/uL Normal 3.70-11.00 [facility] Comment on above: Order Comment: Speci men Type: BLOOD SPECIMENOrdering Facility: [facility] Address: [address] [place] [address] Performed By: #### 5 7021-8 ####[facility] LABORATORYCLIA [id number] [address] [place] CONSULT PROGon 07-25-2021 CONSULT PROG Normal [facility] MYCOPLASMA PNEUM IGMon 07-25 M. PNEUMO IGM, QUAL Negative Normal Negative [facility] Comment on above: Order Comment: Speci [facility] Type: BLOOD SPECIMENOrdering Facility: [facility] Address: [address] [place] [address] Result Comment: Myco plasma pneumoniae IgM antibody test is used as an aid in diagnosis of recent infection with M. pneumoniae. It may occasionally remain elevated for extended periods after an acute infection. Cannot exclude recent infection if the specimen collected 7-10 days after onset of signs and symptoms. Clinical correlation is required. Performed By: #### M YCOPM ####[facility] LABCLIA [id number] [facility] [id number] [place] NURSING PROGon 07-25-2021 NURSING PROG Normal [facility] THERAPY NTon 07-25-2021 THERAPY NT Normal [facility] THERAPY NT Normal [facility] aPTT PPPon 07-25-2021 aPTT Coag (PPP) [Time] 62.6 s High 23.0-32.4 [facility] Comment on above: Order Comment: Speci men Type: BLOOD SPECIMENOrdering Facility: [facility] Address: [address] [place] [address] Performed By: #### 1 4979-9 ####[facility] LABORATORYCLIA [id number] [place] [address] [place] Bacteria Ur Culton 2 Bacteria identified Cx Nom (U) CULTURE, URINE: No growth (<100 CFU/ml) Normal [facility] Comment on above: Performed By: #### 6 30-4 ####[facility]ORATORYCLIA [id number] [place] [address] [place] Basic metabolic 2000 panelon 07-24-2021 Anion gap [Moles/Vol] 13 mmol/L Normal 9-18 [facility] Comment on above: Order Comment: Speci men Type: BLOOD SPECIMENOrdering Facility: [facility] Address: [address] [place] [address] Performed By: #### 1 9123-9, KATIE, 2776-05, 38341-2 ####[facility] LABORATORYCLIA [id number] [place] [address] [place] Calcium [Mass/Vol] 9.5 mg/dL Normal 8.5-10.2 [facility] Comment on above: Order Comment: Speci men Type: BLOOD SPECIMENOrdering Facility: [facility] Address: [address] [place] [address] Performed By: #### 1 9123-9, KATIE, 2776-05, 48725-2 ####[facility] LABORATORYCLIA [id number] [place] [address] [place] Chloride [Moles/Vol] 102 mmol/L Normal 97-105 [facility] Comment on above: Order Comment: Speci men Type: BLOOD SPECIMENOrdering Facility: [facility] Address: [address] [address] Performed By: #### 1 9123-9, KATIE, 2776-05, ####[facility] LABORATORYCLIA [id number] [place] [address] [place] CO2 [Moles/Vol] 28 mmol/L Normal 22-30 [facility] Comment on above: Order Comment: Speci men Type: BLOOD SPECIMENOrdering Facility: [facility] Address: [address] [address] Performed By: #### 1 9123-9, PROCAL, 2777-1, 32195-2 ####[facility] [id number] [address] [place] Creatinine [Mass/Vol] 0.86 mg/dL Normal 0.73-1.22 [facility] Comment on above: Order Comment: Speci men Type: BLOOD SPECIMENOrdering Facility: [facility] Address: [address] [address] Performed By: #### 1 9123-9, [facility], 277-, 98034-8 ####[facility] [id number] [address] [place] ESTIMATED GLOMERULAR FILTRATION RATE 94 mL/min/1.73m??? Normal >=60 [facility] Comment on above: Order Comment: Speci men Type: BLOOD SPECIMENOrdering Facility: [facility] Address: [address] [address] Result Comment: Luzmaria mated Glomerular Filtration Rate [...] Performed By: #### 1 9123-9, PROCAL, 2777-1, 98977-9 ####[facility] [id number] [address] [place] Glucose [Mass/Vol] 148 mg/dL High 74-99 [facility] Comment on above: Order Comment: Speci men Type: BLOOD SPECIMENOrdering Facility: [facility] Address: [address] [address] Result Comment: The [place] [employer] (ADA) provides guidance for cutoff [...] Standards of Medical Care in Diabetes 2016, [place] [employer]. Diabetes Care. 2016.39(Suppl 1). Performed By: #### 1 9123-9, PROCAL, 2776-, 33161-9 ####[facility] LABORATORYCLIA [id number] [place] [address] [place] Potassium [Moles/Vol] 4.0 mmol/L Normal 3.7-5.1 [facility] Comment on above: Order Comment: Shira feldman Type: BLOOD SPECIMENOrdering Facility: [facility] Address: [address] [place] [address] Performed By: #### 1 9123-9, [facility], 2776-05, 32309-0 ####[facility]ENTERCLIA [id number] [place] [address] [place] Sodium [Moles/Vol] 143 mmol/L Normal 136-144 [facility] Comment on above: Order Comment: Shira feldman Type: BLOOD SPECIMENOrdering Facility: [facility] Address: [address] [place] [address] Performed By: #### 1 9123-9, PROCAR, 2776-05, 84497-1 ####[facility]ORATORYCLIA [id number] [place] [address] [place] Urea nitrogen [Mass/Vol] 38 mg/dL High 9-24 [facility] Comment on above: Order Comment: Shira feldman Type: BLOOD SPECIMENOrdering Facility: [facility] Address: [address] [address] Performed By: #### 1 9123-9, PROCAL, 7-, 41665-6 ####[facility]ORATORYCLIA [id number] [place] [address] [place] CBC W Auto Differential pane l (Bld)on 07-24-2021 Basophils (Bld) [#/Vol] 0.06 10*3/uL Normal <0.11 [facility] Comment on above: Order Comment: Speci men Type: BLOOD SPECIMENOrdering Facility: [facility] Address: [address] [place] [address] Performed By: #### 5 7021-8 ####[facility] LABORATORYCLIA [id number] [address] STATES [facility] Basophils/100 WBC (Bld) 0.6 % Normal [facility] Comment on above: Order Comment: Speci men Type: BLOOD SPECIMENOrdering Facility: [facility] Address: [address] [place] [address] Performed By: #### 5 7021-8 ####[facility]ORATORYCLIA [id number] [address] Differential cell count method Nom (Bld) Auto Normal [facility] Comment on above: Order Comment: Speci men Type: BLOOD SPECIMENOrdering Facility: [facility] Address: [address] [place] [address] Performed By: #### 5 7021-8 ####[facility]ORATORYCLIA [id number] [address] [place] Eosinophils (Bld) [#/Vol] 0.03 10*3/uL Normal <0.46 [facility] Comment on above: Order Comment: Speci men Type: BLOOD SPECIMENOrdering Facility: [facility] Address: [address] [place] [address] Performed By: #### 5 7021-8 ####[facility]ORATORYCLIA [id number] [address] Eosinophils/100 WBC (Bld) 0.3 % Normal [facility] Comment on above: Order Comment: Speci men Type: BLOOD SPECIMENOrdering Facility: [facility] Address: [address] [address] Performed By: #### 5 7021-8 ####[facility]ORATORYCLIA [id number] [address] Erythrocyte distribution width (RBC) [Ratio] 17.0 % High 11.5-15.0 [facility] Comment on above: Order Comment: Speci men Type: BLOOD SPECIMENOrdering Facility: [facility] Address: [address] [place] [address] Performed By: #### 5 7021-8 ####[facility]ORATORYCLIA [id number] [address] Hematocrit (Bld) [Volume fraction] 30.5 % Low 39.0-51.0 [facility] Comment on above: Order Comment: Speci men Type: BLOOD SPECIMENOrdering Facility: [facility] Address: [address] [place] [address] Performed By: #### 5 7021-8 ####[facility]ORATORYCLIA [id number] [address] Hemoglobin (Bld) [Mass/Vol] 9.0 g/dL Low 13.0-17.0 [facility] Comment on above: Order Comment: Speci men Type: BLOOD SPECIMENOrdering Facility: [facility] Address: [address] [place] [address] Performed By: #### 5 7021-8 ####[facility]ORATORYCLIA [id number] [address] IMMATURE GRAN % 0.5 % Normal [facility] Comment on above: Order Comment: Speci men Type: BLOOD SPECIMENOrdering Facility: [facility] Address: [address] [place] [address] Performed By: #### 5 7021-8 ####[facility]ORATORYCLIA [id number] [address] IMMATURE GRAN ABS 0.05 k/uL Normal <0.10 [facility] Comment on above: Order Comment: Speci men Type: BLOOD SPECIMENOrdering Facility: [facility] Address: [address] [place] [address] Performed By: #### 5 7021-8 ####[facility] LABORATORYCLIA [id number] [address] OF [facility] Lymphocytes (Bld) [#/Vol] 1.68 10*3/uL Normal 1.00-4.00 [facility] Comment on above: Order Comment: Speci men Type: BLOOD SPECIMENOrdering Facility: [facility] Address: [address] [place] [address] Performed By: #### 5 7021-8 ####[facility]ORATORYCLIA [id number] [address] Lymphocytes/100 WBC (Bld) 16.2 % Normal [facility] Comment on above: Order Comment: Speci men Type: BLOOD SPECIMENOrdering Facility: [facility] Address: [address] [place] [address] Performed By: #### 5 7021-8 ####[facility]ORATORYCLIA [id number] [address] [place] MCH (RBC) [Entitic mass] 27.4 pg Normal 26.0-34.0 [facility] Comment on above: Order Comment: Speci men Type: BLOOD SPECIMENOrdering Facility: [facility] Address: [address] [place] [address] Performed By: #### 5 7021-8 ####[facility] LABORATORYCLIA [id number] [address] [place] MCHC (RBC) [Mass/Vol] 29.5 g/dL Low 30.5-36.0 [facility] Comment on above: Order Comment: Speci men Type: BLOOD SPECIMENOrdering Facility: [facility] Address: [address] [place] [address] Performed By: #### 5 7021-8 ####[facility] LABORATORYCLIA [id number] [address] [place] MCV (RBC) [Entitic vol] 93.0 fL Normal 80.0-100.0 [facility] Comment on above: Order Comment: Speci men Type: BLOOD SPECIMENOrdering Facility: [facility] Address: [address] [place] [address] Performed By: #### 5 7021-8 ####[facility] LABORATORYCLIA [id number] [place] [address] [place] Monocytes (Bld) [#/Vol] 0.63 10*3/uL Normal <0.87 [facility] Comment on above: Order Comment: Speci men Type: BLOOD SPECIMENOrdering Facility: [facility] Address: [address] [place] [address] Performed By: #### 5 7021-8 ####[facility] LABORATORYCLIA [id number] [address] Monocytes/100 WBC (Bld) 6.1 % Normal [facility] Comment on above: Order Comment: Speci men Type: BLOOD SPECIMENOrdering Facility: [facility] Address: [address] [place] [address] Performed By: #### 5 7021-8 ####[facility] LABORATORYCLIA [id number] [address] [place] Neutrophils (Bld) [#/Vol] 7.91 10*3/uL High 1.45-7.50 [facility] Comment on above: Order Comment: Speci men Type: BLOOD SPECIMENOrdering Facility: [facility] Address: [address] [place] [address] Performed By: #### 5 7021-8 ####[facility] LABORATORYCLIA [id number] [address] [place] Neutrophils/100 WBC (Bld) 76.3 % Normal [facility] Comment on above: Order Comment: Speci men Type: BLOOD SPECIMENOrdering Facility: [facility] Address: [address] [place] [address] Performed By: #### 5 7021-8 ####[facility]ATORYCLIA [id number] [address] [place] Nucleated RBC (Bld) [#/Vol] 10*3/uL Normal <0.01 [facility] Comment on above: Order Comment: Speci men Type: BLOOD SPECIMENOrdering Facility: [facility] Address: [address] [place] [address] Performed By: #### 5 7021-8 ####[facility]ATORYCLIA [id number] [address] [place] Nucleated RBC/100 WBC (Bld) [Ratio] 0.0 /100 WBC Normal [facility] Comment on above: Order Comment: Speci men Type: BLOOD SPECIMENOrdering Facility: [facility] Address: [address] [place] [address] Performed By: #### 5 7021-8 ####[facility]ORATORYCLIA [id number] [address] Platelet mean volume (Bld) [Entitic vol] 11.1 fL Normal 9.0-12.7 [facility] Comment on above: Order Comment: Speci men Type: BLOOD SPECIMENOrdering Facility: [facility] Address: [address] [place] [address] Performed By: #### 5 7021-8 ####[facility]ATORYCLIA [id number] [address] [place] Platelets (Bld) [#/Vol] 285 10*3/uL Normal 150-400 [facility] Comment on above: Order Comment: Speci men Type: BLOOD SPECIMENOrdering Facility: [facility] Address: [address] [place] [address] Performed By: #### 5 7021-8 ####[facility]ATORYCLIA [id number] [address] [place] RBC (Bld) [#/Vol] 3.28 10*6/uL Low 4.20-6.00 [facility] Comment on above: Order Comment: Speci men Type: BLOOD SPECIMENOrdering Facility: [facility] Address: [address] [place] [address] Performed By: #### 5 7021-8 ####[facility]ORATORYCLIA [id number] [place] [address] [place] WBC (Bld) [#/Vol] 10.36 10*3/uL Normal 3.70-11.00 [facility] Comment on above: Order Comment: Speci men Type: BLOOD SPECIMENOrdering Facility: [facility] Address: [address] [place] [address] Performed By: #### 5 7021-8 ####[facility]ORATORYCLIA [id number] [address] [place] Legionella Ag Ur Qlon 2021 Legionella sp Ag Ql (U) Negative Normal Negative [facility] Comment on above: Order Comment: Speci men Type: URINE SPECIMENOrdering Facility: [facility] Address: [address] [place] [address] Performed By: #### 3 2781-7 ####[facility]ATORYCLIA [id number] [place] [address] [place] Magnesium SerPl-mCncon 07-24 Magnesium [Mass/Vol] 2.3 mg/dL Normal 1.7-2.3 [facility] Comment on above: Order Comment: Speci men Type: BLOOD SPECIMENOrdering Facility: [facility] Address: [address] [place] [address] Performed By: #### 1 9123-9, PROCAL, 2777-1, 22010-2 ####[facility]ORATORYCLIA [id number] [address] [place] NURSING PROGon 07-24-2021 NURSING PROG Normal [facility] PROCALCITONIN (LAB)on 2021 Procalcitonin [Mass/Vol] 0.15 ng/mL High <0.09 [facility] Comment on above: Order Comment: Speci men Type: BLOOD SPECIMENOrdering Facility: [facility] Address: [address] [place] [address] Result Comment: For a guided interpretation of test results, please visit the Change in Procalcitonin Calculator, [email or web address]. Performed By: #### 1 9123-9, PROCCARLITOS, 2777-1, 21308-4 ####[facility]ORATORYCLIA [id number] [address] [place] Phosphate SerPl-mCncon 07-24 Phosphate [Mass/Vol] 3.9 mg/dL Normal 2.7-4.8 [facility] Comment on above: Order Comment: Speci men Type: BLOOD SPECIMENOrdering Facility: [facility] Address: [address] [place] [address] Performed By: #### 1 9123-9, PROCAL, 2777-1, 71454-4 ####[facility]ATORYCLIA [id number] [address] [place] STREPTOCOCCUS PNEUMONIAE AGo n 07-24-2021 STREPTOCOCCUS PNEUMONIAE AG Normal [facility] Comment on above: Performed By: #### S PNAG ####[facility]ORATORYCLIA [id number] [address] [place] aPTT PPPon 07-24-2021 aPTT Coag (PPP) [Time] 60.8 s High 23.0-32.4 [facility] Comment on above: Order Comment: Speci men Type: BLOOD SPECIMENOrdering Facility: [facility] Address: [address] [place] [address] Performed By: #### 1 4979-9 ####[facility]ORATORYCLIA [id number] [address] [place] aPTT Coag (PPP) [Time] 38.2 s High 23.0-32.4 [facility] Comment on above: Order Comment: Speci men Type: BLOOD SPECIMENOrdering Facility: [facility] Address: [address] [address] Performed By: #### 1 4979-9 ####[facility]ORATORYCLIA [id number] [address] aPTT Coag (PPP) [Time] 35.9 s High 23.0-32.4 [facility] Comment on above: Order Comment: Speci men Type: BLOOD SPECIMENOrdering Facility: [facility] Address: [address] [place] [address] Performed By: #### 1 4979-9 ####[facility]ORATORYCLIA [id number] [address] aPTT Coag (PPP) [Time] 28.8 s Normal 23.0-32.4 [facility] Comment on above: Order Comment: Speci men Type: BLOOD SPECIMENOrdering Facility: [facility] Address: [address] [place] [address] Performed By: #### 1 4979-9 ####[facility]ORATORYCLIA [id number] [address] [place] ALLIED HEALTHon 07-23-2021 ALLIED HEALTH Normal [facility] ALLIED HEALTH Normal [facility] ALLIED HEALTH Normal [facility] ARTERIAL BLOOD GASESon 07-23 Base excess Calc (Bld) [Moles/Vol] 4 mmol/L High 0-2 [facility] Comment on above: Order Comment: Speci men Type: ARTERIAL BLOOD SPECIMENOrdering Facility: [facility] Address: [address] [address] Performed By: #### A LLBG ####[facility]ORATORYCLIA [id number] [address] Body temperature 100.58 [degF] Normal [facility] Comment on above: Order Comment: Speci men Type: ARTERIAL BLOOD SPECIMENOrdering Facility: [facility] Address: [address] [place] [address] Performed By: #### A LLBG ####[facility] LABORATORYCLIA [id number] [address] STATES OF [facility] CALCIUM IONIZED, PH CORRECTED 1.26 mmol/L Normal 1.08-1.30 [facility] Comment on above: Order Comment: Speci men Type: ARTERIAL BLOOD SPECIMENOrdering Facility: [facility] Address: [address] [place] [address] Performed By: #### A LLBG ####[facility]ORATORYCLIA [id number] [place] [address] [place] Calcium.ionized (BldV) [Mass/Vol] 1.25 mmol/L Normal 1.08-1.30 [facility] Comment on above: Order Comment: Speci men Type: ARTERIAL BLOOD SPECIMENOrdering Facility: [facility] Address: [address] [place] [address] Performed By: #### A LLBG ####[facility]ORATORYCLIA [id number] [address] Carboxyhemoglobin (BldA) [Mass fraction] 1.2 % Normal 0.0-2.0 [facility] Comment on above: Order Comment: Speci men Type: ARTERIAL BLOOD SPECIMENOrdering Facility: [facility] Address: [address] [place] [address] Result Comment: Carb oxyhemoglobin Reference Range for Smokers: 2.0-8.0% Performed By: #### A LLBG ####[facility]ORATORYCLIA [id number] [place] [address] [place] CO2 (Bld) [Partial pressure] 46 mm Hg Normal 36-46 [facility] Comment on above: Order Comment: Speci men Type: ARTERIAL BLOOD SPECIMENOrdering Facility: [facility] Address: [address] [place] [address] Performed By: #### A LLBG ####[facility]ORATORYCLIA [id number] [address] [place] CO2 [Moles/Vol] 27 mmol/L Normal 22-28 [facility] Comment on above: Order Comment: Speci men Type: ARTERIAL BLOOD SPECIMENOrdering Facility: [facility] Address: [address] [place] [address] Performed By: #### A LLBG ####[facility]ORATORYCLIA [id number] [address] CO2 adjusted to patient's actual temperature (Bld) [Partial pressure] 48 mmHg High 36-46 [facility] Comment on above: Order Comment: Speci men Type: ARTERIAL BLOOD SPECIMENOrdering Facility: [facility] Address: [address] [place] [address] Performed By: #### A LLBG ####[facility]ORATORYCLIA [id number] [address] [place] Glucose [Mass/Vol] 134 mg/dL High 60-105 [facility] Comment on above: Order Comment: Speci men Type: ARTERIAL BLOOD SPECIMENOrdering Facility: [facility] Address: [address] [place] [address] Performed By: #### A LLBG ####[facility]ORATORYCLIA [id number] [address] [place] HCO3 (Bld) [Moles/Vol] 29 mmol/L High 22-26 [facility] Comment on above: Order Comment: Speci men Type: ARTERIAL BLOOD SPECIMENOrdering Facility: [facility] Address: [address] [place] [address] Performed By: #### A LLBG ####[facility]ORATORYCLIA [id number] [address] Hematocrit (Bld) [Volume fraction] 31.4 % Low 39.0-51.0 [facility] Comment on above: Order Comment: Speci men Type: ARTERIAL BLOOD SPECIMENOrdering Facility: [facility] Address: [address] [place] [address] Performed By: #### A LLBG ####[facility]ORATORYCLIA [id number] [address] [place] Hemoglobin (Bld) [Mass/Vol] 10.2 g/dL Low 13.0-17.0 [facility] Comment on above: Order Comment: Speci men Type: ARTERIAL BLOOD SPECIMENOrdering Facility: [facility] Address: [facility] [address] Performed By: #### A LLBG ####[facility]ORATORYCLIA [id number] [address] Methemoglobin (Bld) [Mass fraction] % Normal 0.0-1.5 [facility] Comment on above: Order Comment: Speci men Type: ARTERIAL BLOOD SPECIMENOrdering Facility: [facility] Address: [address] [place] [address] Performed By: #### A LLBG ####[facility]ORATORYCLIA [id number] [address] O2 THERAPY Ventilator Normal [facility] Comment on above: Order Comment: Speci men Type: ARTERIAL BLOOD SPECIMENOrdering Facility: [facility] Address: [address] [place] [address] Performed By: #### A LLBG ####[facility]ORATORYCLIA [id number] [address] Oxygen (Bld) [Partial pressure] 113 mm Hg High 85-95 [facility] Comment on above: Order Comment: Speci men Type: ARTERIAL BLOOD SPECIMENOrdering Facility: [facility] Address: [address] [place] [address] Performed By: #### A LLBG ####[facility]ORATORYCLIA [id number] [address] Oxygen adjusted to patient's actual temperature (Bld) [Partial pressure] 119 mmHg High 85-95 [facility] Comment on above: Order Comment: Speci men Type: ARTERIAL BLOOD SPECIMENOrdering Facility: [facility] Address: [address] [place] [address] Performed By: #### A LLBG ####[facility]ORATORYCLIA [id number] [place] [address] OXYGEN SATURATION, ARTERIAL 98 % Normal 95-98 [facility] Comment on above: Order Comment: Speci men Type: ARTERIAL BLOOD SPECIMENOrdering Facility: [facility] Address: [address] [place] [address] Performed By: #### A LLBG ####[facility]ORATORYCLIA [id number] [address] [place] Oxyhemoglobin (BldA) [Mass fraction] 96 % Normal 95-98 [facility] Comment on above: Order Comment: Speci men Type: ARTERIAL BLOOD SPECIMENOrdering Facility: [facility] Address: [address] [place] [address] Performed By: #### A LLBG ####[facility]ORATORYCLIA [id number] [address] [place] pH (Bld) 7.41 [pH] Normal 7.35-7.45 [facility] Comment on above: Order Comment: Speci men Type: ARTERIAL BLOOD SPECIMENOrdering Facility: [facility] Address: [address] [place] [address] Performed By: #### A LLBG ####[facility]ORATORYCLIA [id number] [address] pH adjusted to patient's actual temperature (Bld) 7.40 Normal 7.35-7.45 [facility] Comment on above: Order Comment: Speci men Type: ARTERIAL BLOOD SPECIMENOrdering Facility: [facility] Address: [address] [place] [address] Performed By: #### A LLBG ####[facility]ORATORYCLIA [id number] [address] [place] Potassium [Moles/Vol] 4.3 mmol/L Normal 3.5-5.0 [facility] Comment on above: Order Comment: Speci men Type: ARTERIAL BLOOD SPECIMENOrdering Facility: [facility] Address: [address] [place] [address] Performed By: #### A LLBG ####[facility]ORATORYCLIA [id number] [address] [place] Sodium [Moles/Vol] 144 mmol/L Normal 136-144 [facility] Comment on above: Order Comment: Speci men Type: ARTERIAL BLOOD SPECIMENOrdering Facility: [facility] Address: [address] [address] Performed By: #### A LLBG ####[facility]ORATORYCLIA [id number] [address] Bacteria CSF Culton 07-24-19 22 Bacteria identified Cx Nom (CSF) Abnormal [facility] Comment on above: Performed By: #### 6 06-4 ####[facility]ORATORYCLIA [id number] [address] [place] Basic metabolic 2000 panelon 07-23-2021 Anion gap [Moles/Vol] 12 mmol/L Normal 9-18 [facility] Comment on above: Order Comment: Speci men Type: BLOOD SPECIMENOrdering Facility: [facility] Address: [address] [place] [address] Performed By: #### 2 4321-2 ####[facility]ORATORYCLIA [id number] [address] [place] Calcium [Mass/Vol] 9.7 mg/dL Normal 8.5-10.2 [facility] Comment on above: Order Comment: Speci men Type: BLOOD SPECIMENOrdering Facility: [facility] Address: [address] [address] Performed By: #### 2 4321-2 ####[facility]ORATORYCLIA [id number] [address] [place] Chloride [Moles/Vol] 105 mmol/L Normal 97-105 [facility] Comment on above: Order Comment: Speci men Type: BLOOD SPECIMENOrdering Facility: [facility] Address: [address] [address] Performed By: #### 2 4321-2 ####[facility]ORATORYCLIA [id number] [address] STATES OF [facility] CO2 [Moles/Vol] 28 mmol/L Normal 22-30 [facility] Comment on above: Order Comment: Speci men Type: BLOOD SPECIMENOrdering Facility: [facility] Address: [address] [place] [address] Performed By: #### 2 4321-2 ####[facility]ORATORYCLIA [id number] [address] STATES OF [facility] Creatinine [Mass/Vol] 0.78 mg/dL Normal 0.73-1.22 [facility] Comment on above: Order Comment: Speci men Type: BLOOD SPECIMENOrdering Facility: [facility] Address: [address] [place] [address] Performed By: #### 2 4321-2 ####[facility]ENTERCLIA [id number] [address] ESTIMATED GLOMERULAR FILTRATION RATE 97 mL/min/1.73m??? Normal >=60 [facility] Comment on above: Order Comment: Speci men Type: BLOOD SPECIMENOrdering Facility: [facility] Address: [address] [place] [address] Result Comment: Luzmaria mated Glomerular Filtration Rate [...] Performed By: #### 2 4321-2 ####[facility]ORATORYCLIA [id number] [address] STATES OF [facility] Glucose [Mass/Vol] 127 mg/dL High 74-99 [facility] Comment on above: Order Comment: Speci men Type: BLOOD SPECIMENOrdering Facility: [facility] Address: [address] [place] [address] Result Comment: The [place] [employer] (ADA) provides guidance for cutoff [...] Standards of Medical Care in Diabetes 2016, [place] [employer]. Diabetes Care. 2016.39(Suppl 1). Performed By: #### 2 4321-2 ####[facility]ORATORYCLIA [id number] [address] STATES OF [facility] Potassium [Moles/Vol] 4.3 mmol/L Normal 3.7-5.1 [facility] Comment on above: Order Comment: Shira feldman Type: BLOOD SPECIMENOrdering Facility: [facility] Address: [address] [place] [address] Performed By: #### 2 4321-2 ####[facility]ORATORYCLIA [id number] [address] STATES [facility] Sodium [Moles/Vol] 145 mmol/L High 136-144 [facility] Comment on above: Order Comment: Shira feldman Type: BLOOD SPECIMENOrdering Facility: [facility] Address: [address] [place] [address] Performed By: #### 2 4321-2 ####[facility]ORATORYCLIA [id number] [address] STATES [facility] Urea nitrogen [Mass/Vol] 37 mg/dL High 9-24 [facility] Comment on above: Order Comment: Shira feldman Type: BLOOD SPECIMENOrdering Facility: [facility] Address: [address] [place] [address] Performed By: #### 2 4321-2 ####[facility]ORATORYCLIA [id number] [place] [address] [place] C diff Tox gens Stl Ql MEGAN+p robeon 07-23-2021 C. difficile toxin genes MEGAN+probe Ql (Stl) Negative Normal Negative for C. difficile toxin by PCR [facility] Comment on above: Order Comment: Speci men Type: STOOL SPECIMENOrdering Facility: [facility] Address: [address] [place] [address] Performed By: #### 5 4067-4 ####[facility]ORATORYCLIA [id number] [address] STATES OF [facility] CBC W Auto Differential pane l (Bld)on 07-23-2021 Basophils (Bld) [#/Vol] 0.07 10*3/uL Normal <0.11 [facility] Comment on above: Order Comment: Speci men Type: BLOOD SPECIMENOrdering Facility: [facility] Address: [address] [place] [address] Performed By: #### 5 7021-8 ####[facility]ORATORYCLIA [id number] [address] STATES OF [facility] Basophils/100 WBC (Bld) 0.5 % Normal [facility] Comment on above: Order Comment: Speci men Type: BLOOD SPECIMENOrdering Facility: [facility] Address: [address] [place] [address] Performed By: #### 5 7021-8 ####[facility]ORATORYCLIA [id number] [address] Differential cell count method Nom (Bld) Auto Normal [facility] Comment on above: Order Comment: Speci men Type: BLOOD SPECIMENOrdering Facility: [facility] Address: [address] [place] [address] Performed By: #### 5 7021-8 ####[facility]ORATORYCLIA [id number] [place] [address] [place] Eosinophils (Bld) [#/Vol] 10*3/uL Normal <0.46 [facility] Comment on above: Order Comment: Speci men Type: BLOOD SPECIMENOrdering Facility: [facility] Address: [address] [place] [address] Performed By: #### 5 7021-8 ####[facility]ORATORYCLIA [id number] [address] Eosinophils/100 WBC (Bld) 0.2 % Normal [facility] Comment on above: Order Comment: Speci men Type: BLOOD SPECIMENOrdering Facility: [facility] Address: [address] [place] [address] Performed By: #### 5 7021-8 ####[facility]ORATORYCLIA [id number] [address] [place] Erythrocyte distribution width (RBC) [Ratio] 16.7 % High 11.5-15.0 [facility] Comment on above: Order Comment: Speci men Type: BLOOD SPECIMENOrdering Facility: [facility] Address: [address] [place] [address] Performed By: #### 5 7021-8 ####[facility]ORATORYCLIA [id number] [address] Hematocrit (Bld) [Volume fraction] 32.8 % Low 39.0-51.0 [facility] Comment on above: Order Comment: Speci men Type: BLOOD SPECIMENOrdering Facility: [facility] Address: [address] [place] [address] Performed By: #### 5 7021-8 ####[facility]ORATORYCLIA [id number] [address] [place] Hemoglobin (Bld) [Mass/Vol] 9.7 g/dL Low 13.0-17.0 [facility] Comment on above: Order Comment: Speci men Type: BLOOD SPECIMENOrdering Facility: [facility] Address: [address] [place] [address] Performed By: #### 5 7021-8 ####[facility]ORATORYCLIA [id number] [address] [place] IMMATURE GRAN % 0.7 % Normal [facility] Comment on above: Order Comment: Speci men Type: BLOOD SPECIMENOrdering Facility: [facility] Address: [address] [place] [address] Performed By: #### 5 7021-8 ####[facility]ORATORYCLIA [id number] [address] IMMATURE GRAN ABS 0.09 k/uL Normal <0.10 [facility] Comment on above: Order Comment: Speci men Type: BLOOD SPECIMENOrdering Facility: [facility] Address: [address] [place] [address] Performed By: #### 5 7021-8 ####[facility]ORATORYCLIA [id number] [address] Lymphocytes (Bld) [#/Vol] 1.94 10*3/uL Normal 1.00-4.00 [facility] Comment on above: Order Comment: Speci men Type: BLOOD SPECIMENOrdering Facility: [facility] Address: [address] [place] [address] Performed By: #### 5 7021-8 ####[facility] LABORATORYCLIA [id number] [address] Lymphocytes/100 WBC (Bld) 14.6 % Normal [facility] Comment on above: Order Comment: Speci men Type: BLOOD SPECIMENOrdering Facility: [facility] Address: [address] [place] [address] Performed By: #### 5 7021-8 ####[facility] LABORATORYCLIA [id number] [address] MCH (RBC) [Entitic mass] 27.2 pg Normal 26.0-34.0 [facility] Comment on above: Order Comment: Speci men Type: BLOOD SPECIMENOrdering Facility: [facility] Address: [address] [place] [address] Performed By: #### 5 7021-8 ####[facility] LABORATORYCLIA [id number] [place] [address] [place] MCHC (RBC) [Mass/Vol] 29.6 g/dL Low 30.5-36.0 [facility] Comment on above: Order Comment: Speci men Type: BLOOD SPECIMENOrdering Facility: [facility] Address: [address] [place] [address] Performed By: #### 5 7021-8 ####[facility]ORATORYCLIA [id number] [place] [address] [place] MCV (RBC) [Entitic vol] 92.1 fL Normal 80.0-100.0 [facility] Comment on above: Order Comment: Speci men Type: BLOOD SPECIMENOrdering Facility: [facility] Address: [address] [place] [address] Performed By: #### 5 7021-8 ####[facility]ORATORYCLIA [id number] [address] [place] Monocytes (Bld) [#/Vol] 0.74 10*3/uL Normal <0.87 [facility] Comment on above: Order Comment: Speci men Type: BLOOD SPECIMENOrdering Facility: [facility] Address: [address] [place] [address] Performed By: #### 5 7021-8 ####[facility] LABORATORYCLIA [id number] [address] Monocytes/100 WBC (Bld) 5.6 % Normal [facility] Comment on above: Order Comment: Speci men Type: BLOOD SPECIMENOrdering Facility: [facility] Address: [address] [place] [address] Performed By: #### 5 7021-8 ####[facility] LABORATORYCLIA [id number] [address] [place] Neutrophils (Bld) [#/Vol] 10.43 10*3/uL High 1.45-7.50 [facility] Comment on above: Order Comment: Speci men Type: BLOOD SPECIMENOrdering Facility: [facility] Address: [address] [place] [address] Performed By: #### 5 7021-8 ####[facility]ORATORYCLIA [id number] [address] Neutrophils/100 WBC (Bld) 78.4 % Normal [facility] Comment on above: Order Comment: Speci men Type: BLOOD SPECIMENOrdering Facility: [facility] Address: [address] [place] [address] Performed By: #### 5 7021-8 ####[facility]ORATORYCLIA [id number] [address] [place] Nucleated RBC (Bld) [#/Vol] 10*3/uL Normal <0.01 [facility] Comment on above: Order Comment: Speci men Type: BLOOD SPECIMENOrdering Facility: [facility] Address: [address] [place] [address] Performed By: #### 5 7021-8 ####[facility]ORATORYCLIA [id number] [address] Nucleated RBC/100 WBC (Bld) [Ratio] 0.0 /100 WBC Normal [facility] Comment on above: Order Comment: Speci men Type: BLOOD SPECIMENOrdering Facility: [facility] Address: [address] [place] [address] Performed By: #### 5 7021-8 ####[facility]ORATORYCLIA [id number] [address] [place] Platelet mean volume (Bld) [Entitic vol] 11.0 fL Normal 9.0-12.7 [facility] Comment on above: Order Comment: Speci men Type: BLOOD SPECIMENOrdering Facility: [facility] Address: [address] [place] [address] Performed By: #### 5 7021-8 ####[facility]ATORYCLIA [id number] [address] [place] Platelets (Bld) [#/Vol] 381 10*3/uL Normal 150-400 [facility] Comment on above: Order Comment: Speci men Type: BLOOD SPECIMENOrdering Facility: [facility] Address: [address] [place] [address] Performed By: #### 5 7021-8 ####[facility] LABORATORYCLIA [id number] [address] OF [facility] RBC (Bld) [#/Vol] 3.56 10*6/uL Low 4.20-6.00 [facility] Comment on above: Order Comment: Speci men Type: BLOOD SPECIMENOrdering Facility: [facility] Address: [address] [place] [address] Performed By: #### 5 7021-8 ####[facility]ORATORYCLIA [id number] [address] OF [facility] WBC (Bld) [#/Vol] 13.29 10*3/uL High 3.70-11.00 [facility] Comment on above: Order Comment: Speci men Type: BLOOD SPECIMENOrdering Facility: [facility] Address: [address] [place] [address] Performed By: #### 5 7021-8 ####[facility]ORATORYCLIA [id number] [address] CONSULT PROGon 07-23-2021 CONSULT PROG Normal [facility] CONSULT PROG Normal [facility] CSF MANUAL DIFFon 07-23-2021 DIF TTL, CSF 100 cells counted Normal [facility] Comment on above: Order Comment: Speci men Type: CEREBROSPINAL FLUIDOrdering Facility: [facility] Address: [address] [place] [address] Performed By: #### L [id number], SUC3200, 50781-5 ####[facility]ORATORYCLIA [id number] [address] [place] LYMPH%, CSF 2 % Low 50-90 [facility] Comment on above: Order Comment: Speci men Type: CEREBROSPINAL FLUIDOrdering Facility: [facility] Address: [address] [place] [address] Performed By: #### L [id number], [id number], 62826-9 ####[facility]ORATORYCLIA [id number] [place] [address] [place] MONO%, CSF 9 % Low 10-50 [facility] Comment on above: Order Comment: Speci men Type: CEREBROSPINAL FLUIDOrdering Facility: [facility] Address: [address] [place] [address] Performed By: #### L [id number], QIJ4965, 63727-1 ####[facility]ORATORYCLIA [id number] [place] [address] [place] NEUT%, CSF 89 % High 0-3 [facility] Comment on above: Order Comment: Speci men Type: CEREBROSPINAL FLUIDOrdering Facility: [facility] Address: [address] [place] [address] Performed By: #### L [id number], GYE2530, 49650-2 ####[facility]ORATORYCLIA [id number] [address] CSF PATHOLOGIST INTERP (LAB REFLEX ORDER-NO BILL)on 07-23-2021 CSF STAFF REVIEW Negative for maligna nt cells. Numerous bacterial organisms present, cocci in pairs and chains. Recommend correlation with CSF culture results. Normal [facility] Comment on above: Order Comment: Speci men Type: CEREBROSPINAL FLUIDOrdering Facility: [facility] Address: [address] [place] [address] Performed By: #### L [id number], HEU2750, 86904-2 ####[facility]ORATORYCLIA [id number] [address] Pathologist name Reviewed by Amador Stevens MD [facility] Comment on above: Order Comment: Speci men Type: CEREBROSPINAL FLUIDOrdering Facility: [facility] Address: [address] [place] [address] Performed By: #### L YS9680, [id number], 07980-1 ####[facility]ORATORYCLIA [id number] [address] BRAIN WO IVCONon 07-24-19 CT BRAIN WO IVCON Normal [facility] Cell count panel (CSF)on Clarity (CSF) Clear Normal Clear [facility] Comment on above: Order Comment: Speci men Type: CEREBROSPINAL FLUIDOrdering Facility: [facility] Address: [address] [place] [address] Performed By: #### L [id number], LLL6428, 89139-9 ####[facility]ORATORYCLIA [id number] [address] Clarity (Unsp spec) Not Indicated Normal Clear [facility] Comment on above: Order Comment: Speci men Type: CEREBROSPINAL FLUIDOrdering Facility: [facility] Address: [address] [place] [address] Performed By: #### L [id number], YOX3998, 31709-8 ####[facility]ORATORYCLIA [id number] [address] Color (CSF) Colorless Normal Colorless [facility] Comment on above: Order Comment: Speci men Type: CEREBROSPINAL FLUIDOrdering Facility: [facility] Address: [address] [place] [address] Performed By: #### L [id number], [id number], 71704-6 ####[facility]ORATORYCLIA [id number] [address] Color (Spun CSF) Not Indicated Normal Colorless [facility] Comment on above: Order Comment: Speci men Type: CEREBROSPINAL FLUIDOrdering Facility: [facility] Address: [address] [place] [address] Performed By: #### L [id number], OYK9418, 91032-9 ####[facility]ORATORYCLIA [id number] [address] CSF [employer] Normal [facility] Comment on above: Order Comment: Speci men Type: CEREBROSPINAL FLUIDOrdering Facility: [facility] Address: [address] [place], [place] [id number] Performed By: #### L [id number], XRW6970, 61247-4 ####[facility]ORATORYCLIA [id number] [address] RBC Manual cnt (CSF) [#/Vol] 7 cells/uL High 0-5 [facility] Comment on above: Order Comment: Speci men Type: CEREBROSPINAL FLUIDOrdering Facility: [facility] Address: [address] [place] [address] Performed By: #### L [id number], JBQ2306, 42822-7 ####[facility]ORATORYCLIA [id number] [address] WBC Manual cnt (CSF) [#/Vol] 193 cells/uL High 0-5 [facility] Comment on above: Order Comment: Speci men Type: CEREBROSPINAL FLUIDOrdering Facility: [facility] Address: [address] [place] [address] Performed By: #### L [id number], [id number], 09656-9 ####[facility]ORATORYCLIA [id number] [address] [place] Glucose CSF-ncon 2 Glucose (CSF) [Mass/Vol] 81 mg/dL High 40-70 [facility] Comment on above: Order Comment: Speci men Type: CEREBROSPINAL FLUIDOrdering Facility: [facility] Address: [address] [place] [address] Result Comment: Lumb ar CSF glucose values of healthy patients are approximately 60% of the plasma values and must always be compared with a concurrently measured plasma value for adequate clinical interpretation.References: 1. Glucose HK (GLUC3) [package insert V 12.0 Estonian]. [employer], [place], [place]. September 2015. 2. Michelle Moore, Loki H. (2015). Chapter 7: Glucose and Lactate. Marianela Rothman.(eds.), Cerebrospinal Fluid in Clinical Neurology. [place]: [employer]. Performed By: #### 2 342-4, 2880-3 ####[facility] LABORATORYCLIA [id number] [address] [place] NURSING PROGon 07-23-2021 NURSING PROG Normal [facility] NURSING PROG Normal [facility] Prot CSF-mCncon 07-23-2021 Protein (CSF) [Mass/Vol] 68 mg/dL High 15-45 [facility] Comment on above: Order Comment: Speci men Type: CEREBROSPINAL FLUIDOrdering Facility: [facility] Address: [address] [place] [address] Performed By: #### 2 342-4, 2880-3 ####[facility]ORATORYCLIA [id number] [address] Urinalysis complete panel (U )on 07-23-2021 Bilirubin Ql (U) Negative Normal Negative [facility] Comment on above: Order Comment: Speci men Type: URINE SPECIMENOrdering Facility: [facility] Address: [address] [place] [address] Performed By: #### 2 4356-8 ####[facility]ORATORYCLIA [id number] [address] [place] Clarity (Unsp spec) Clear Normal Clear [facility] Comment on above: Order Comment: Speci men Type: URINE SPECIMENOrdering Facility: [facility] Address: [address] [place] [address] Performed By: #### 2 4356-8 ####[facility]ORATORYCLIA [id number] [address] Color (U) Light Yellow Normal yellow [facility] Comment on above: Order Comment: Speci men Type: URINE SPECIMENOrdering Facility: [facility] Address: [address] [place] [address] Performed By: #### 2 4356-8 ####[facility]ORATORYCLIA [id number] [address] [place] Glucose Test strip (U) [Mass/Vol] Negative Normal Negative [facility] Comment on above: Order Comment: Speci men Type: URINE SPECIMENOrdering Facility: [facility] Address: [address] [place] [address] Performed By: #### 2 4356-8 ####[facility]ORATORYCLIA [id number] [address] Hemoglobin Ql (U) Negative Normal Negative [facility] Comment on above: Order Comment: Speci men Type: URINE SPECIMENOrdering Facility: [facility] Address: [address] [place] [address] Performed By: #### 2 4356-8 ####[facility] LABORATORYCLIA [id number] [address] [place] Ketones Ql (U) Negative Normal Negative [facility] Comment on above: Order Comment: Speci men Type: URINE SPECIMENOrdering Facility: [facility] Address: [address] [place] [address] Performed By: #### 2 4356-8 ####[facility]ORATORYCLIA [id number] [address] [place] Leukocyte esterase Test strip Ql (U) Negative Normal Negative [facility] Comment on above: Order Comment: Speci men Type: URINE SPECIMENOrdering Facility: [facility] Address: [address] [place] [address] Performed By: #### 2 4356-8 ####[facility]ORATORYCLIA [id number] [address] [place] Nitrite Ql (U) Negative Normal Negative [facility] Comment on above: Order Comment: Speci men Type: URINE SPECIMENOrdering Facility: [facility] Address: [address] [place] [address] Performed By: #### 2 4356-8 ####[facility]ORATORYCLIA [id number] [address] [place] pH (U) 6.0 [pH] Normal 5.0-8.0 [facility] Comment on above: Order Comment: Speci men Type: URINE SPECIMENOrdering Facility: [facility] Address: [address] [place] [address] Performed By: #### 2 4356-8 ####[facility]ORATORYCLIA [id number] [address] Protein (U) [Mass/Vol] 1+ Abnormal Negative [facility] Comment on above: Order Comment: Speci men Type: URINE SPECIMENOrdering Facility: [facility] Address: [address] [place] [address] Performed By: #### 2 4356-8 ####[facility]ORATORYCLIA [id number] [address] RBC LM.HPF (Urine sed) [#/Area] 0-3 /HPF Normal 0-3 /HPF [facility] Comment on above: Order Comment: Speci men Type: URINE SPECIMENOrdering Facility: [facility] Address: [address] [place] [address] Performed By: #### 2 4356-8 ####[facility]ORATORYCLIA [id number] [address] Specific gravity (U) [Rel density] 1.018 Normal 1.005-1.030 [facility] Comment on above: Order Comment: Speci men Type: URINE SPECIMENOrdering Facility: [facility] Address: [address] [place] [address] Performed By: #### 2 4356-8 ####[facility]ORATORYCLIA [id number] [address] Urobilinogen Ql (U) Normal Normal Negative [facility] Comment on above: Order Comment: Speci men Type: URINE SPECIMENOrdering Facility: [facility] Address: [address] [place] [address] Performed By: #### 2 4356-8 ####[facility]ORATORYCLIA [id number] [address] [place] WBC LM.HPF (Urine sed) [#/Area] 0-5 /HPF Normal 0-5 /HPF [facility] Comment on above: Order Comment: Speci men Type: URINE SPECIMENOrdering Facility: [facility] Address: [address] [place] [address] Performed By: #### 2 4356-8 ####[facility]ORATORYCLIA [id number] [address] Vancomycin random [Mass/Vol] on 07-23-2021 Vancomycin [Mass/Vol] 12.9 ug/mL Normal 10.0-20.0 [facility] Comment on above: Order Comment: Speci men Type: BLOOD SPECIMENOrdering Facility: [facility] Address: [address] [place] [address] Result Comment: Refe rence ranges and high/low indicator flags are provided as general guidelines only. The treating physician must determine appropriate target levels/dosing based on the specific clinical situation. Performed By: #### 4 091-5 ####[facility]ORATORYCLIA [id number] [address] OF [facility] XR CHEST 1V FRONTALon 2021 XR CHEST 1V FRONTAL Normal [facility] XR CHEST 1V FRONTAL Normal [facility] aPTT PPPon 07-23-2021 aPTT Coag (PPP) [Time] 32.3 s Normal 23.0-32.4 [facility] Comment on above: Order Comment: Speci men Type: BLOOD SPECIMENOrdering Facility: [facility] Address: [address] [address] Performed By: #### 1 4979-9 ####[facility]ORATORYCLIA [id number] [address] aPTT Coag (PPP) [Time] 57.9 s High 23.0-32.4 [facility] Comment on above: Order Comment: Speci men Type: BLOOD SPECIMENOrdering Facility: [facility] Address: [address] [place] [address] Performed By: #### 1 4979-9 ####[facility]ORATORYCLIA [id number] [place] [address] [place] aPTT Coag (PPP) [Time] 46.3 s High 23.0-32.4 [facility] Comment on above: Order Comment: Speci men Type: BLOOD SPECIMENOrdering Facility: [facility] Address: [address] [place] [address] Performed By: #### 1 4979-9 ####[facility]ORATORYCLIA [id number] [place] [address] [place] Basic metabolic 2000 panelon 07-22-2021 Anion gap [Moles/Vol] 8 mmol/L Low 9-18 [facility] Comment on above: Order Comment: Speci men Type: BLOOD SPECIMENOrdering Facility: [facility] Address: [address] [place] [address] Performed By: #### 2 4321-2 ####[facility]ORATORYCLIA [id number] [place] [address] [place] Calcium [Mass/Vol] 9.5 mg/dL Normal 8.5-10.2 [facility] Comment on above: Order Comment: Speci men Type: BLOOD SPECIMENOrdering Facility: [facility] Address: [address] [place] [address] Performed By: #### 2 4321-2 ####[facility]ORATORYCLIA [id number] [address] [place] Chloride [Moles/Vol] 105 mmol/L Normal 97-105 [facility] Comment on above: Order Comment: Speci men Type: BLOOD SPECIMENOrdering Facility: [facility] Address: [address] [place] [address] Performed By: #### 2 4321-2 ####[facility]ORATORYCLIA [id number] [place] [address] [place] CO2 [Moles/Vol] 32 mmol/L High 22-30 [facility] Comment on above: Order Comment: Speci men Type: BLOOD SPECIMENOrdering Facility: [facility] Address: [address] [place] [address] Performed By: #### 2 4321-2 ####[facility]ORATORYCLIA [id number] [address] STATES OF [facility] Creatinine [Mass/Vol] 0.75 mg/dL Normal 0.73-1.22 [facility] Comment on above: Order Comment: Shira feldman Type: BLOOD SPECIMENOrdering Facility: [facility] Address: [address] [place] [address] Performed By: #### 2 4321-2 ####[facility]ORATORYCLIA [id number] [address] ESTIMATED GLOMERULAR FILTRATION RATE 98 mL/min/1.73m??? Normal >=60 [facility] Comment on above: Order Comment: Shira feldman Type: BLOOD SPECIMENOrdering Facility: [facility] Address: [address] [place] [address] Result Comment: Luzmaria mated Glomerular Filtration Rate [...] Performed By: #### 2 4321-2 ####[facility]ORATORYCLIA [id number] [address] STATES OF [facility] Glucose [Mass/Vol] 128 mg/dL High 74-99 [facility] Comment on above: Order Comment: Shira francia Type: BLOOD SPECIMENOrdering Facility: [facility] Address: [address] [place] [address] Result Comment: The [place] [employer] (ADA) provides guidance for cutoff [...] Standards of Medical Care in Diabetes 2016, [place] [employer]. Diabetes Care. 2016.39(Suppl 1). Performed By: #### 2 4321-2 ####[facility]ORATORYCLIA [id number] [address] STATES OF [facility] Potassium [Moles/Vol] 3.7 mmol/L Normal 3.7-5.1 [facility] Comment on above: Order Comment: Speci men Type: BLOOD SPECIMENOrdering Facility: [facility] Address: [address] [place] [address] Performed By: #### 2 4321-2 ####[facility]ORATORYCLIA [id number] [address] Sodium [Moles/Vol] 145 mmol/L High 136-144 [facility] Comment on above: Order Comment: Shira feldman Type: BLOOD SPECIMENOrdering Facility: [facility] Address: [address] [place] [address] Performed By: #### 2 4321-2 ####[facility]ORATORYCLIA [id number] [address] Urea nitrogen [Mass/Vol] 39 mg/dL High 9-24 [facility] Comment on above: Order Comment: Shira feldman Type: BLOOD SPECIMENOrdering Facility: [facility] Address: [address] [place] [address] Performed By: #### 2 4321-2 ####[facility]ORATORYCLIA [id number] [address] [place] CASE MANAGEMon 07-22-2021 CASE MANAGEM Normal [facility] CBC W Auto Differential pane l (Bld)on 07-22-2021 Basophils (Bld) [#/Vol] 0.06 10*3/uL Normal <0.11 [facility] Comment on above: Order Comment: Speci men Type: BLOOD SPECIMENOrdering Facility: [facility] Address: [address] [address] Performed By: #### 5 7021-8 ####[facility]ORATORYCLIA [id number] [address] STATES [facility] Basophils/100 WBC (Bld) 0.5 % Normal [facility] Comment on above: Order Comment: Speci men Type: BLOOD SPECIMENOrdering Facility: [facility] Address: [address] [place] [address] Performed By: #### 5 7021-8 ####[facility]ORATORYCLIA [id number] [address] Differential cell count method Nom (Bld) Auto Normal [facility] Comment on above: Order Comment: Speci men Type: BLOOD SPECIMENOrdering Facility: [facility] Address: [address] [place] [address] Performed By: #### 5 7021-8 ####[facility] LABORATORYCLIA [id number] [address] [place] Eosinophils (Bld) [#/Vol] 0.44 10*3/uL Normal <0.46 [facility] Comment on above: Order Comment: Speci men Type: BLOOD SPECIMENOrdering Facility: [facility] [place] Address: [address] [place] [address] Performed By: #### 5 7021-8 ####[facility]ORATORYCLIA [id number] [address] Eosinophils/100 WBC (Bld) 3.9 % Normal [facility] Comment on above: Order Comment: Speci men Type: BLOOD SPECIMENOrdering Facility: [facility] [place] Address: [address] [place] [address] Performed By: #### 5 7021-8 ####[facility]ATORYCLIA [id number] [address] [place] Erythrocyte distribution width (RBC) [Ratio] 17.0 % High 11.5-15.0 [facility] Comment on above: Order Comment: Speci men Type: BLOOD SPECIMENOrdering Facility: [facility] [place] Address: [address] [place] [address] Performed By: #### 5 7021-8 ####[facility]ORATORYCLIA [id number] [address] Hematocrit (Bld) [Volume fraction] 32.0 % Low 39.0-51.0 [facility] Comment on above: Order Comment: Speci men Type: BLOOD SPECIMENOrdering Facility: [facility] [place] Address: [address] [place] [address] Performed By: #### 5 7021-8 ####[facility]ORATORYCLIA [id number] [address] Hemoglobin (Bld) [Mass/Vol] 9.3 g/dL Low 13.0-17.0 [facility] Comment on above: Order Comment: Speci men Type: BLOOD SPECIMENOrdering Facility: [facility] [place] Address: [address] [place] [address] Performed By: #### 5 7021-8 ####[facility]ORATORYCLIA [id number] [address] IMMATURE GRAN % 0.5 % Normal [facility] Comment on above: Order Comment: Speci men Type: BLOOD SPECIMENOrdering Facility: [facility] [place] Address: [address] [place] [address] Performed By: #### 5 7021-8 ####[facility]ORATORYCLIA [id number] [address] IMMATURE GRAN ABS 0.06 k/uL Normal <0.10 [facility] Comment on above: Order Comment: Speci men Type: BLOOD SPECIMENOrdering Facility: [facility] [place] Address: [address] [place] [address] Performed By: #### 5 7021-8 ####[facility]ORATORYCLIA [id number] [address] Lymphocytes (Bld) [#/Vol] 1.83 10*3/uL Normal 1.00-4.00 [facility] Comment on above: Order Comment: Speci men Type: BLOOD SPECIMENOrdering Facility: [facility] [place] Address: [address] [place] [address] Performed By: #### 5 7021-8 ####[facility]ORATORYCLIA [id number] [address] Lymphocytes/100 WBC (Bld) 16.1 % Normal [facility] Comment on above: Order Comment: Speci men Type: BLOOD SPECIMENOrdering Facility: [facility] [place] Address: [address] [place] [address] Performed By: #### 5 7021-8 ####[facility]ORATORYCLIA [id number] [address] STATES OF [facility] MCH (RBC) [Entitic mass] 27.0 pg Normal 26.0-34.0 [facility] Comment on above: Order Comment: Speci men Type: BLOOD SPECIMENOrdering Facility: [facility] [place] Address: [address] [place] [address] Performed By: #### 5 7021-8 ####[facility]ORATORYCLIA [id number] [address] MCHC (RBC) [Mass/Vol] 29.1 g/dL Low 30.5-36.0 [facility] Comment on above: Order Comment: Speci men Type: BLOOD SPECIMENOrdering Facility: [facility] [place] Address: [address] [place] [address] Performed By: #### 5 7021-8 ####[facility]ORATORYCLIA [id number] [address] MCV (RBC) [Entitic vol] 92.8 fL Normal 80.0-100.0 [facility] Comment on above: Order Comment: Speci men Type: BLOOD SPECIMENOrdering Facility: [facility] [place] Address: [address] [place] [address] Performed By: #### 5 7021-8 ####[facility]ATORYCLIA [id number] [place] [address] [place] Monocytes (Bld) [#/Vol] 0.87 10*3/uL High <0.87 [facility] Comment on above: Order Comment: Speci men Type: BLOOD SPECIMENOrdering Facility: [facility] [place] Address: [address] [place] [address] Performed By: #### 5 7021-8 ####[facility]ATORYCLIA [id number] [place] [address] [place] Monocytes/100 WBC (Bld) 7.6 % Normal [facility] Comment on above: Order Comment: Speci men Type: BLOOD SPECIMENOrdering Facility: [facility] [place] Address: [address] [place] [address] Performed By: #### 5 7021-8 ####[facility]ORATORYCLIA [id number] [place] [address] [place] Neutrophils (Bld) [#/Vol] 8.12 10*3/uL High 1.45-7.50 [facility] Comment on above: Order Comment: Speci men Type: BLOOD SPECIMENOrdering Facility: [facility] [place] Address: [address] [place] [address] Performed By: #### 5 7021-8 ####[facility]ORATORYCLIA [id number] [address] [place] Neutrophils/100 WBC (Bld) 71.4 % Normal [facility] Comment on above: Order Comment: Speci men Type: BLOOD SPECIMENOrdering Facility: [facility] [place] Address: [address] [place] [address] Performed By: #### 5 7021-8 ####[facility]ORATORYCLIA [id number] [place] [address] [place] Nucleated RBC (Bld) [#/Vol] 10*3/uL Normal <0.01 [facility] Comment on above: Order Comment: Speci men Type: BLOOD SPECIMENOrdering Facility: [facility] [place] Address: [address] [address] Performed By: #### 5 7021-8 ####[facility]ORATORYCLIA [id number] [address] [place] Nucleated RBC/100 WBC (Bld) [Ratio] 0.0 /100 WBC Normal [facility] Comment on above: Order Comment: Speci men Type: BLOOD SPECIMENOrdering Facility: [facility] [place] Address: [address] [place] [address] Performed By: #### 5 7021-8 ####[facility]ORATORYCLIA [id number] [address] [place] Platelet mean volume (Bld) [Entitic vol] 10.8 fL Normal 9.0-12.7 [facility] Comment on above: Order Comment: Speci men Type: BLOOD SPECIMENOrdering Facility: [facility] [place] Address: [address] [place] [address] Performed By: #### 5 7021-8 ####[facility]ORATORYCLIA [id number] [place] [address] [place] Platelets (Bld) [#/Vol] 362 10*3/uL Normal 150-400 [facility] Comment on above: Order Comment: Speci men Type: BLOOD SPECIMENOrdering Facility: [facility] [place] Address: [address] [place] [address] Performed By: #### 5 7021-8 ####[facility]ORATORYCLIA [id number] [place] [address] [place] RBC (Bld) [#/Vol] 3.45 10*6/uL Low 4.20-6.00 [facility] Comment on above: Order Comment: Speci men Type: BLOOD SPECIMENOrdering Facility: [facility] [place] Address: [address] [place] [address] Performed By: #### 5 7021-8 ####[facility]ORATORYCLIA [id number] [address] [place] WBC (Bld) [#/Vol] 11.38 10*3/uL High 3.70-11.00 [facility] Comment on above: Order Comment: Speci men Type: BLOOD SPECIMENOrdering Facility: [facility] [place] Address: [address] [place] [address] Performed By: #### 5 7021-8 ####[facility]ORATORYCLIA [id number] [address] Magnesium SerPl-mCncon 07-22 Magnesium [Mass/Vol] 2.3 mg/dL Normal 1.7-2.3 [facility] Comment on above: Order Comment: Speci men Type: BLOOD SPECIMENOrdering Facility: [facility] [place] Address: [address] [place] [address] Performed By: #### 1 9123-9, 2777-1, 06482-6 ####[facility]ORATORYCLIA [id number] [address] NT-proBNP SerPl-ncon 07-22 Natriuretic peptide.B prohormone N-Terminal [Mass/Vol] 328 pg/mL High <125 [facility] Comment on above: Order Comment: Speci men Type: BLOOD SPECIMENOrdering Facility: [facility] [place] Address: [address] [place] [address] Performed By: #### 1 9123-9, 2777-1, 84319-6 ####[facility]ORATORYCLIA [id number] [address] [place] NURSING PROGon 07-22-2021 NURSING PROG Normal [facility] NUTRITIONon 07-22-2021 NUTRITION Normal [facility] Phosphate SerPl-mCncon 07-22 Phosphate [Mass/Vol] 3.5 mg/dL Normal 2.7-4.8 [facility] Comment on above: Order Comment: Speci men Type: BLOOD SPECIMENOrdering Facility: [facility] [place] Address: [address] [place] [address] Performed By: #### 1 9123-9, 2777-1, 02286-2 ####[facility]ORATORYCLIA [id number] [address] THERAPY NTon 07-22-2021 THERAPY NT Normal [facility] THERAPY NT Normal [facility] aPTT PPPon 07-22-2021 aPTT Coag (PPP) [Time] 50.1 s High 23.0-32.4 [facility] Comment on above: Order Comment: Speci men Type: BLOOD SPECIMENOrdering Facility: [facility] [place] Address: [address] [place] [address] Performed By: #### 1 4979-9 ####[facility]ORATORYCLIA [id number] [address] OF [facility] ALLIED HEALTHon 07-21-2021 ALLIED HEALTH Normal [facility] Bacteria Spec Resp Culton Bacteria identified Respiratory culture Nom (Unsp spec) Abnormal [facility] Comment on above: Performed By: #### 3 2355-0 ####[facility]ORATORYCLIA [id number] [address] [place] Basic metabolic 2000 panelon 07-21-2021 Anion gap [Moles/Vol] 9 mmol/L Normal - [facility] Comment on above: Order Comment: Speci men Type: BLOOD SPECIMENOrdering Facility: [facility] [place] Address: [address] [place] [address] Performed By: #### 1 9123-9, 2777-, 87622-7 ####[facility]ORATORYCLIA [id number] [address] [place] Calcium [Mass/Vol] 9.9 mg/dL Normal 8.5-10.2 [facility] Comment on above: Order Comment: Speci men Type: BLOOD SPECIMENOrdering Facility: [facility] [place] Address: [facility] [place] [address] Performed By: #### 1 9123-9, 2777-1, 76961-7 ####[facility]ORATORYCLIA [id number] [address] [place] Chloride [Moles/Vol] 103 mmol/L Normal 97-105 [facility] Comment on above: Order Comment: Speci francia Type: BLOOD SPECIMENOrdering Facility: [facility] [place] Address: [address] [place] [address] Performed By: #### 1 9123-9, 2777-1, 60694-7 ####[facility]ORATORYCLIA [id number] [address] [place] CO2 [Moles/Vol] 33 mmol/L High 22-30 [facility] Comment on above: Order Comment: Speci men Type: BLOOD SPECIMENOrdering Facility: [facility] [place] Address: [address] [place] [address] Performed By: #### 1 9123-9, 2777-1, 52424-1 ####[facility]ENTERCLIA [id number] [address] Creatinine [Mass/Vol] 0.80 mg/dL Normal 0.73-1.22 [facility] Comment on above: Order Comment: Speci men Type: BLOOD SPECIMENOrdering Facility: [facility] [place] Address: [address] [place] [address] Performed By: #### 1 9123-9, 2777-1, 95599-4 ####[facility]ORATORYCLIA [id number] [address] ESTIMATED GLOMERULAR FILTRATION RATE 96 mL/min/1.73m??? Normal >=60 [facility] Comment on above: Order Comment: Speci men Type: BLOOD SPECIMENOrdering Facility: [facility] [place] Address: [address] [place] [address] Result Comment: Luzmaria mated Glomerular Filtration Rate [...] GFR. Performed By: #### 1 9123-9, 2777-, 38953-2 ####[facility]ORATORYCLIA [id number] [place] [address] [place] Glucose [Mass/Vol] 148 mg/dL High 74-99 [facility] Comment on above: Order Comment: Shira feldman Type: BLOOD SPECIMENOrdering Facility: [facility] [place] Address: [address] [place] [address] Result Comment: The [place] [employer] (ADA) provides guidance for cutoff [...] Standards of Medical Care in Diabetes 2016, [place] [employer]. Diabetes Care. 2016.39(Suppl 1). Performed By: #### 1 9123-9, 2777-, 73964-4 ####[facility]ENTERCLIA [id number] [place] [address] [place] Potassium [Moles/Vol] 4.1 mmol/L Normal 3.7-5.1 [facility] Comment on above: Order Comment: Shira feldman Type: BLOOD SPECIMENOrdering Facility: [facility] [place] Address: [address] [id number] Performed By: #### 1 9123-9, 2777-, 28274-3 ####[facility]ORATORYCLIA [id number] [place] [address] [place] Sodium [Moles/Vol] 145 mmol/L High 136-144 [facility] Comment on above: Order Comment: Shira feldman Type: BLOOD SPECIMENOrdering Facility: [facility] [place] Address: [address] [address] Performed By: #### 1 9123-9, 2777-1, 79411-3 ####[facility]ORATORYCLIA [id number] [address] STATES [facility] Urea nitrogen [Mass/Vol] 40 mg/dL High 9-24 [facility] Comment on above: Order Comment: Speci men Type: BLOOD SPECIMENOrdering Facility: [facility] [place] Address: [address] [place] [address] Performed By: #### 1 9123-9, 2777-1, 27349-2 ####[facility]ORATORYCLIA [id number] [address] CBC W Auto Differential pane l (Bld)on 07-21-2021 Basophils (Bld) [#/Vol] 0.06 10*3/uL Normal <0.11 [facility] Comment on above: Order Comment: Speci men Type: BLOOD SPECIMENOrdering Facility: [facility] [place] Address: [address] [place] [address] Performed By: #### 5 7021-8 ####[facility]ORATORYCLIA [id number] [address] STATES [facility] Basophils/100 WBC (Bld) 0.4 % Normal [facility] Comment on above: Order Comment: Speci men Type: BLOOD SPECIMENOrdering Facility: [facility] [place] Address: [address] [place] [address] Performed By: #### 5 7021-8 ####[facility]ORATORYCLIA [id number] [address] Differential cell count method Nom (Bld) Auto Normal [facility] Comment on above: Order Comment: Speci men Type: BLOOD SPECIMENOrdering Facility: [facility] [place] Address: [address] [place] [address] Performed By: #### 5 7021-8 ####[facility]ORATORYCLIA [id number] [address] [place] Eosinophils (Bld) [#/Vol] 0.04 10*3/uL Normal <0.46 [facility] Comment on above: Order Comment: Speci men Type: BLOOD SPECIMENOrdering Facility: [facility] [place] Address: [address] [place] [address] Performed By: #### 5 7021-8 ####[facility]ORATORYCLIA [id number] [address] [place] Eosinophils/100 WBC (Bld) 0.3 % Normal [facility] Comment on above: Order Comment: Speci men Type: BLOOD SPECIMENOrdering Facility: [facility] [place] Address: [address] [place] [address] Performed By: #### 5 7021-8 ####[facility]ORATORYCLIA [id number] [address] STATES [facility] Erythrocyte distribution width (RBC) [Ratio] 17.0 % High 11.5-15.0 [facility] Comment on above: Order Comment: Speci men Type: BLOOD SPECIMENOrdering Facility: [facility] [place] Address: [address] [place] [address] Performed By: #### 5 7021-8 ####[facility]ORATORYCLIA [id number] [address] [place] Hematocrit (Bld) [Volume fraction] 33.1 % Low 39.0-51.0 [facility] Comment on above: Order Comment: Speci men Type: BLOOD SPECIMENOrdering Facility: [facility] [place] Address: [address] [place] [address] Performed By: #### 5 7021-8 ####[facility]ATORYCLIA [id number] [address] [place] Hemoglobin (Bld) [Mass/Vol] 9.7 g/dL Low 13.0-17.0 [facility] Comment on above: Order Comment: Speci men Type: BLOOD SPECIMENOrdering Facility: [facility] [place] Address: [address] [place] [address] Performed By: #### 5 7021-8 ####[facility]ATORYCLIA [id number] [address] IMMATURE GRAN % 0.5 % Normal [facility] Comment on above: Order Comment: Speci men Type: BLOOD SPECIMENOrdering Facility: [facility] [place] Address: [address] [place] [address] Performed By: #### 5 7021-8 ####[facility]ORYCLIA [id number] [address] IMMATURE GRAN ABS 0.07 k/uL Normal <0.10 [facility] Comment on above: Order Comment: Speci men Type: BLOOD SPECIMENOrdering Facility: [facility] [place] Address: [address] [place] [address] Performed By: #### 5 7021-8 ####[facility]ORATORYCLIA [id number] [address] Lymphocytes (Bld) [#/Vol] 1.99 10*3/uL Normal 1.00-4.00 [facility] Comment on above: Order Comment: Speci men Type: BLOOD SPECIMENOrdering Facility: [facility] [place] Address: [address] [place] [address] Performed By: #### 5 7021-8 ####[facility]ORYCLIA [id number] [address] Lymphocytes/100 WBC (Bld) 13.4 % Normal [facility] Comment on above: Order Comment: Speci men Type: BLOOD SPECIMENOrdering Facility: [facility] [place] Address: [address] [place] [address] Performed By: #### 5 7021-8 ####[facility]ORYCLIA [id number] [address] MCH (RBC) [Entitic mass] 27.2 pg Normal 26.0-34.0 [facility] Comment on above: Order Comment: Speci men Type: BLOOD SPECIMENOrdering Facility: [facility] [place] Address: [address] [place] [address] Performed By: #### 5 7021-8 ####[facility]ORATORYCLIA [id number] [address] [place] MCHC (RBC) [Mass/Vol] 29.3 g/dL Low 30.5-36.0 [facility] Comment on above: Order Comment: Speci men Type: BLOOD SPECIMENOrdering Facility: [facility] [place] Address: [address] [place] [address] Performed By: #### 5 7021-8 ####[facility]ORATORYCLIA [id number] [address] [place] MCV (RBC) [Entitic vol] 92.7 fL Normal 80.0-100.0 [facility] Comment on above: Order Comment: Speci men Type: BLOOD SPECIMENOrdering Facility: [facility] [place] Address: [address] [place] [address] Performed By: #### 5 7021-8 ####[facility]ORATORYCLIA [id number] [address] [place] Monocytes (Bld) [#/Vol] 1.10 10*3/uL High <0.87 [facility] Comment on above: Order Comment: Speci men Type: BLOOD SPECIMENOrdering Facility: [facility] [place] Address: [address] [place] [address] Performed By: #### 5 7021-8 ####[facility]ORATORYCLIA [id number] [address] STATES [facility] Monocytes/100 WBC (Bld) 7.4 % Normal [facility] Comment on above: Order Comment: Speci men Type: BLOOD SPECIMENOrdering Facility: [facility] [place] Address: [address] [place] [address] Performed By: #### 5 7021-8 ####[facility]ORATORYCLIA [id number] [place] [address] [place] Neutrophils (Bld) [#/Vol] 11.61 10*3/uL High 1.45-7.50 [facility] Comment on above: Order Comment: Speci men Type: BLOOD SPECIMENOrdering Facility: [facility] [place] Address: [address] [place] [address] Performed By: #### 5 7021-8 ####[facility]ORATORYCLIA [id number] [address] Neutrophils/100 WBC (Bld) 78.0 % Normal [facility] Comment on above: Order Comment: Speci men Type: BLOOD SPECIMENOrdering Facility: [facility] [place] Address: [address] [place] [address] Performed By: #### 5 7021-8 ####[facility]ORATORYCLIA [id number] [address] [place] Nucleated RBC (Bld) [#/Vol] 10*3/uL Normal <0.01 [facility] Comment on above: Order Comment: Speci men Type: BLOOD SPECIMENOrdering Facility: [facility] [place] Address: [address] [place] [address] Performed By: #### 5 7021-8 ####[facility]ORATORYCLIA [id number] [address] Nucleated RBC/100 WBC (Bld) [Ratio] 0.0 /100 WBC Normal [facility] Comment on above: Order Comment: Speci men Type: BLOOD SPECIMENOrdering Facility: [facility] [place] Address: [address] [place] [address] Performed By: #### 5 7021-8 ####[facility]ORATORYCLIA [id number] [place] [address] [place] Platelet mean volume (Bld) [Entitic vol] 10.4 fL Normal 9.0-12.7 [facility] Comment on above: Order Comment: Speci men Type: BLOOD SPECIMENOrdering Facility: [facility] [place] Address: [address] [place] [address] Performed By: #### 5 7021-8 ####[facility]ORATORYCLIA [id number] [address] OF [facility] Platelets (Bld) [#/Vol] 396 10*3/uL Normal 150-400 [facility] Comment on above: Order Comment: Speci men Type: BLOOD SPECIMENOrdering Facility: [facility] [place] Address: [address] [place] [address] Performed By: #### 5 7021-8 ####[facility]ORATORYCLIA [id number] [address] OF [facility] RBC (Bld) [#/Vol] 3.57 10*6/uL Low 4.20-6.00 [facility] Comment on above: Order Comment: Speci men Type: BLOOD SPECIMENOrdering Facility: [facility] Address: [address] [place] [address] Performed By: #### 5 7021-8 ####[facility] LABORATORYCLIA [id number] [address] [facility] WBC (Bld) [#/Vol] 14.87 10*3/uL High 3.70-11.00 [facility] Comment on above: Order Comment: Speci men Type: BLOOD SPECIMENOrdering Facility: [facility] Address: [address] [place] [address] Performed By: #### 5 7021-8 ####[facility] LABORATORYCLIA [id number] [address] Gas and Carbon monoxide pane l (BldV)on 07-21-2021 Base excess Calc (BldV) [Moles/Vol] 7 mmol/L High 0-2 [facility] Comment on above: Order Comment: Speci men Type: VENOUS BLOOD SPECIMENOrdering Facility: [facility] Address: [address] [place] [address] Performed By: #### 2 4344-4 ####[facility] [facility]ORATORYCLIA [id number] [address] Body temperature 98.6 [degF] Normal [facility] Comment on above: Order Comment: Speci men Type: VENOUS BLOOD SPECIMENOrdering Facility: [facility] Address: [address] [place] [address] Performed By: #### 2 4344-4 ####[facility] LABORATORYCLIA [id number] [address] [place] CALCIUM IONIZED, PH CORRECTED 1.21 mmol/L Normal 1.08-1.30 [facility] Comment on above: Order Comment: Speci men Type: VENOUS BLOOD SPECIMENOrdering Facility: [facility] Address: [address] [place] [address] Performed By: #### 2 4344-4 ####[facility]ORATORYCLIA [id number] [address] OF [facility] Calcium.ionized (BldV) [Mass/Vol] 1.23 mmol/L Normal 1.08-1.30 [facility] Comment on above: Order Comment: Speci men Type: VENOUS BLOOD SPECIMENOrdering Facility: [facility] Address: [address] [place] [address] Performed By: #### 2 4344-4 ####[facility]ORATORYCLIA [id number] [address] [place] Carboxyhemoglobin (BldV) [Mass fraction] 2.3 % High 0.0-2.0 [facility] Comment on above: Order Comment: Speci men Type: VENOUS BLOOD SPECIMENOrdering Facility: [facility] Address: [address] [place] [address] Result Comment: Carb oxyhemoglobin Reference Range for Smokers: 2.0-8.0% Performed By: #### 2 4344-4 ####[facility]ORATORYCLIA [id number] [address] [place] CO2 (BldV) [Partial pressure] 58 mm[Hg] High 42-55 [facility] Comment on above: Order Comment: Speci men Type: VENOUS BLOOD SPECIMENOrdering Facility: [facility] Address: [address] [place] [address] Performed By: #### 2 4344-4 ####[facility]ORATORYCLIA [id number] [place] [address] [place] CO2 [Moles/Vol] 31 mmol/L High 25-29 [facility] Comment on above: Order Comment: Speci men Type: VENOUS BLOOD SPECIMENOrdering Facility: [facility] Address: [address] [place] [address] Performed By: #### 2 4344-4 ####[facility]ORATORYCLIA [id number] [place] [address] [place] Glucose [Mass/Vol] 146 mg/dL High 60-105 [facility] Comment on above: Order Comment: Speci men Type: VENOUS BLOOD SPECIMENOrdering Facility: [facility] Address: [address] [place] [address] Performed By: #### 2 4344-4 ####[facility]ORATORYCLIA [id number] [place] [address] [place] HCO3 (Bld) [Moles/Vol] 33 mmol/L High 24-28 [facility] Comment on above: Order Comment: Speci men Type: VENOUS BLOOD SPECIMENOrdering Facility: [facility] Address: [address] [place] [address] Performed By: #### 2 4344-4 ####[facility]ORATORYCLIA [id number] [place] [address] [place] Hematocrit (Bld) [Volume fraction] 30.1 % Low 39.0-51.0 [facility] Comment on above: Order Comment: Speci men Type: VENOUS BLOOD SPECIMENOrdering Facility: [facility] Address: [address] [place] [address] Performed By: #### 2 4344-4 ####[facility]ORATORYCLIA [id number] [place] [address] [place] Hemoglobin (Bld) [Mass/Vol] 9.7 g/dL Low 13.0-17.0 [facility] Comment on above: Order Comment: Speci men Type: VENOUS BLOOD SPECIMENOrdering Facility: [facility] Address: [address] [address] Performed By: #### 2 4344-4 ####[facility] LABORATORYCLIA [id number] [address] [place] Methemoglobin (Bld) [Mass fraction] % Normal 0.0-1.5 [facility] Comment on above: Order Comment: Speci men Type: VENOUS BLOOD SPECIMENOrdering Facility: [facility] Address: [address] [address] Performed By: #### 2 4344-4 ####[facility]ORATORYCLIA [id number] [address] O2 THERAPY NC = Nasal Cannula Normal [facility] Comment on above: Order Comment: Speci men Type: VENOUS BLOOD SPECIMENOrdering Facility: [facility] Address: [address] [address] Performed By: #### 2 4344-4 ####[facility]ORATORYCLIA [id number] [address] [place] Oxygen (BldV) [Partial pressure] 64 mm[Hg] High 35-45 [facility] Comment on above: Order Comment: Speci men Type: VENOUS BLOOD SPECIMENOrdering Facility: [facility] Address: [address] [address] Performed By: #### 2 4344-4 ####[facility]ORATORYCLIA [id number] [address] [place] Oxygen saturation in Blood 90 % High 60-85 [facility] Comment on above: Order Comment: Speci men Type: VENOUS BLOOD SPECIMENOrdering Facility: [facility] Address: [address] [address] Performed By: #### 2 4344-4 ####[facility] LABORATORYCLIA [id number] [address] [place] Oxyhemoglobin (BldV) [Mass fraction] 87 % High 60-85 [facility] Comment on above: Order Comment: Speci men Type: VENOUS BLOOD SPECIMENOrdering Facility: [facility] Address: [address] [place] [address] Performed By: #### 2 4344-4 ####[facility]ORATORYCLIA [id number] [place] [address] [place] pH (BldV) 7.38 [pH] Normal 7.32-7.42 [facility] Comment on above: Order Comment: Speci men Type: VENOUS BLOOD SPECIMENOrdering Facility: [facility] Address: [address] [place] [address] Performed By: #### 2 4344-4 ####[facility]ORATORYCLIA [id number] [place] [address] [place] Potassium [Moles/Vol] 3.8 mmol/L Normal 3.5-5.0 [facility] Comment on above: Order Comment: Speci men Type: VENOUS BLOOD SPECIMENOrdering Facility: [facility] Address: [address] [place] [address] Performed By: #### 2 4344-4 ####[facility]ORATORYCLIA [id number] [address] [place] Sodium [Moles/Vol] 145 mmol/L High 136-144 [facility] Comment on above: Order Comment: Speci men Type: VENOUS BLOOD SPECIMENOrdering Facility: [facility] Address: [address] [place] [address] Performed By: #### 2 4344-4 ####[facility]ORATORYCLIA [id number] [place] [address] [place] Base excess Calc (BldV) [Moles/Vol] 8 mmol/L High 0-2 [facility] Comment on above: Order Comment: Speci men Type: VENOUS BLOOD SPECIMENOrdering Facility: [facility] Address: [address] [place] [address] Performed By: #### 2 4344-4 ####[facility]ORATORYCLIA [id number] [address] Body temperature 100.22 [degF] Normal [facility] Comment on above: Order Comment: Speci men Type: VENOUS BLOOD SPECIMENOrdering Facility: [facility] Address: [address] [place] [address] Performed By: #### 2 4344-4 ####[facility]ORATORYCLIA [id number] [address] OF [facility] CALCIUM IONIZED, PH CORRECTED 1.25 mmol/L Normal 1.08-1.30 [facility] Comment on above: Order Comment: Speci men Type: VENOUS BLOOD SPECIMENOrdering Facility: [facility] Address: [address] [place] [address] Performed By: #### 2 4344-4 ####[facility]ORATORYCLIA [id number] [address] STATES [facility] Calcium.ionized (BldV) [Mass/Vol] 1.24 mmol/L Normal 1.08-1.30 [facility] Comment on above: Order Comment: Speci men Type: VENOUS BLOOD SPECIMENOrdering Facility: [facility] Address: [address] [place] [address] Performed By: #### 2 4344-4 ####[facility]ORATORYCLIA [id number] [address] [place] Carboxyhemoglobin (BldV) [Mass fraction] 2.5 % High 0.0-2.0 [facility] Comment on above: Order Comment: Speci men Type: VENOUS BLOOD SPECIMENOrdering Facility: [facility] Address: [address] [place] [address] Result Comment: Carb oxyhemoglobin Reference Range for Smokers: 2.0-8.0% Performed By: #### 2 4344-4 ####[facility]ORATORYCLIA [id number] [address] [place] CO2 (BldV) [Partial pressure] 53 mm[Hg] Normal 42-55 [facility] Comment on above: Order Comment: Speci men Type: VENOUS BLOOD SPECIMENOrdering Facility: [facility] Address: [address] [place] [address] Performed By: #### 2 4344-4 ####[facility]ORATORYCLIA [id number] [address] [place] CO2 [Moles/Vol] 31 mmol/L High 25-29 [facility] Comment on above: Order Comment: Speci men Type: VENOUS BLOOD SPECIMENOrdering Facility: [facility] Address: [address] [place] [address] Performed By: #### 2 4344-4 ####[facility]ORATORYCLIA [id number] [address] [place] CO2 adjusted to patient's actual temperature (BldV) [Partial pressure] 56 mmHg High 42-55 [facility] Comment on above: Order Comment: Speci men Type: VENOUS BLOOD SPECIMENOrdering Facility: [facility] Address: [address] [place] [address] Performed By: #### 2 4344-4 ####[facility]ORATORYCLIA [id number] [place] [address] [place] Glucose [Mass/Vol] 131 mg/dL High 60-105 [facility] Comment on above: Order Comment: Speci men Type: VENOUS BLOOD SPECIMENOrdering Facility: [facility] Address: [address] [place] [address] Performed By: #### 2 4344-4 ####[facility]ATORYCLIA [id number] [place] [address] [place] HCO3 (Bld) [Moles/Vol] 33 mmol/L High 24-28 [facility] Comment on above: Order Comment: Speci men Type: VENOUS BLOOD SPECIMENOrdering Facility: [facility] Address: [address] [place] [address] Performed By: #### 2 4344-4 ####[facility]ORATORYCLIA [id number] [place] [address] [place] Hematocrit (Bld) [Volume fraction] 30.8 % Low 39.0-51.0 [facility] Comment on above: Order Comment: Speci men Type: VENOUS BLOOD SPECIMENOrdering Facility: [facility] Address: [address] [address] Performed By: #### 2 4344-4 ####[facility]ORATORYCLIA [id number] [address] [place] Hemoglobin (Bld) [Mass/Vol] 10.0 g/dL Low 13.0-17.0 [facility] Comment on above: Order Comment: Speci men Type: VENOUS BLOOD SPECIMENOrdering Facility: [facility] Address: [address] [place] [address] Performed By: #### 2 4344-4 ####[facility]ORATORYCLIA [id number] [address] [place] Methemoglobin (Bld) [Mass fraction] % Normal 0.0-1.5 [facility] Comment on above: Order Comment: Speci men Type: VENOUS BLOOD SPECIMENOrdering Facility: [facility] Address: [address] [place] [address] Performed By: #### 2 4344-4 ####[facility]ORATORYCLIA [id number] [address] [place] O2 THERAPY NC = Nasal Cannula Normal [facility] Comment on above: Order Comment: Speci men Type: VENOUS BLOOD SPECIMENOrdering Facility: [facility] Address: [address] [place] [address] Performed By: #### 2 4344-4 ####[facility]ORATORYCLIA [id number] [address] [place] Oxygen (BldV) [Partial pressure] 58 mm[Hg] High 35-45 [facility] Comment on above: Order Comment: Speci men Type: VENOUS BLOOD SPECIMENOrdering Facility: [facility] Address: [address] [address] Performed By: #### 2 4344-4 ####[facility]ORATORYCLIA [id number] [address] [place] Oxygen adjusted to patient's actual temperature (BldV) [Partial pressure] 61 mmHg High 35-45 [facility] Comment on above: Order Comment: Speci men Type: VENOUS BLOOD SPECIMENOrdering Facility: [facility] Address: [address] [place] [address] Performed By: #### 2 4344-4 ####[facility]ORATORYCLIA [id number] [address] [place] Oxygen saturation in Blood 88 % High 60-85 [facility] Comment on above: Order Comment: Speci men Type: VENOUS BLOOD SPECIMENOrdering Facility: [facility] Address: [address] [place] [address] Performed By: #### 2 4344-4 ####[facility]ORATORYCLIA [id number] [address] Oxyhemoglobin (BldV) [Mass fraction] 85 % Normal 60-85 [facility] Comment on above: Order Comment: Speci men Type: VENOUS BLOOD SPECIMENOrdering Facility: [facility] Address: [address] [place] [address] Performed By: #### 2 4344-4 ####[facility]ORATORYCLIA [id number] [address] [place] pH (BldV) 7.41 [pH] Normal 7.32-7.42 [facility] Comment on above: Order Comment: Speci men Type: VENOUS BLOOD SPECIMENOrdering Facility: [facility] Address: [address] [place] [address] Performed By: #### 2 4344-4 ####[facility]ORATORYCLIA [id number] [address] STATES [facility] pH adjusted to patient's actual temperature (BldV) 7.40 Normal 7.32-7.42 [facility] Comment on above: Order Comment: Speci men Type: VENOUS BLOOD SPECIMENOrdering Facility: [facility] Address: [address] [address] Performed By: #### 2 4344-4 ####[facility]ORATORYCLIA [id number] [place] [address] [place] Potassium [Moles/Vol] 4.0 mmol/L Normal 3.5-5.0 [facility] Comment on above: Order Comment: Speci men Type: VENOUS BLOOD SPECIMENOrdering Facility: [facility] Address: [address] [place] [address] Performed By: #### 2 4344-4 ####[facility]ATORYCLIA [id number] [place] [address] [place] Sodium [Moles/Vol] 146 mmol/L High 136-144 [facility] Comment on above: Order Comment: Speci men Type: VENOUS BLOOD SPECIMENOrdering Facility: [facility] Address: [address] [place] [address] Performed By: #### 2 4344-4 ####[facility]ORATORYCLIA [id number] [place] [address] [place] Magnesium SerPl-mCncon 07-21 Magnesium [Mass/Vol] 2.5 mg/dL High 1.7-2.3 [facility] Comment on above: Order Comment: Speci men Type: BLOOD SPECIMENOrdering Facility: [facility] Address: [address] [place] [address] Performed By: #### 1 9123-9, 2777-1, 41347-3 ####[facility]ORATORYCLIA [id number] [place] [address] [place] NURSING PROGon 07-21-2021 NURSING PROG Normal [facility] Phosphate SerPl-mCncon 07-21 Phosphate [Mass/Vol] 3.7 mg/dL Normal 2.7-4.8 [facility] Comment on above: Order Comment: Speci men Type: BLOOD SPECIMENOrdering Facility: [facility] Address: [address] [place] [address] Performed By: #### 1 9123-9, 2777-1, 44102-4 ####[facility]ORATORYCLIA [id number] [address] OF [facility] THERAPY NTon 07-21-2021 THERAPY NT Normal [facility] XR CHEST 1V FRONTALon 2021 XR CHEST 1V FRONTAL Normal [facility] aPTT PPPon 07-21-2021 aPTT Coag (PPP) [Time] 53.0 s High 23.0-32.4 [facility] Comment on above: Order Comment: Speci men Type: BLOOD SPECIMENOrdering Facility: [facility] Address: [address] [place] [address] Performed By: #### 1 4979-9 ####[facility]ORATORYCLIA [id number] [address] [place] ALLIED HEALTHon 07-20-2021 ALLIED HEALTH Normal [facility] Basic metabolic 2000 panelon 07-20-2021 Anion gap [Moles/Vol] 8 mmol/L Low 9-18 [facility] Comment on above: Order Comment: Speci men Type: BLOOD SPECIMENOrdering Facility: [facility] Address: [address] [place] [address] Performed By: #### 2 4321-2, , 2776-05 ####[facility]ORATORYCLIA [id number] [place] [address] [place] [facility] Calcium [Mass/Vol] 9.7 mg/dL Normal 8.5-10.2 [facility] Comment on above: Order Comment: Speci men Type: BLOOD SPECIMENOrdering Facility: [facility] Address: [address] [place] [address] Performed By: #### 2 4321-2, , 2777 ####[facility]ORATORYCLIA [id number] [place] [address] [place] Chloride [Moles/Vol] 104 mmol/L Normal 97-105 [facility] Comment on above: Order Comment: Speci men Type: BLOOD SPECIMENOrdering Facility: [facility] Address: [address] [place] [address] Performed By: #### 2 4321-2, , 2776-05 ####[facility]ENTERCLIA [id number] [address] STATES OF [facility] CO2 [Moles/Vol] 34 mmol/L High 22-30 [facility] Comment on above: Order Comment: Speci men Type: BLOOD SPECIMENOrdering Facility: [facility] Address: [address] [place] [address] Performed By: #### 2 4321-2, , 2776-05 ####[facility]ENTERCLIA [id number] [address] Creatinine [Mass/Vol] 0.76 mg/dL Normal 0.73-1.22 [facility] Comment on above: Order Comment: Speci men Type: BLOOD SPECIMENOrdering Facility: [facility] Address: [address] [place] [address] Performed By: #### 2 4321-2, , 2776-05 ####[facility] [id number] [address] ESTIMATED GLOMERULAR FILTRATION RATE 97 mL/min/1.73m??? Normal >=60 [facility] Comment on above: Order Comment: Speci men Type: BLOOD SPECIMENOrdering Facility: [facility] Address: [address] [place] [address] Result Comment: Luzmaria mated Glomerular Filtration Rate [...] #### 2 4321-2, , 2776-05 ####[facility]ORATORYCLIA [id number] [place] [address] [place] Glucose [Mass/Vol] 123 mg/dL High 74-99 [facility] Comment on above: Order Comment: Speci men Type: BLOOD SPECIMENOrdering Facility: [facility] Address: [address] [place], [place] [phone] Result Comment: The [place] [employer] (ADA) provides guidance for cutoff [...] Standards of Medical Care in Diabetes 2016, [place] [employer]. Diabetes Care. 2016.39(Suppl 1). Performed By: #### 2 4321-2, , 2776-05 ####[facility]ORATORYCLIA [id number] [place] [address] [place] Potassium [Moles/Vol] 4.4 mmol/L Normal 3.7-5.1 [facility] Comment on above: Order Comment: Shira francia Type: BLOOD SPECIMENOrdering Facility: [facility] Address: [address] [place], [place] [phone] Performed By: #### 2 4321-2, , 2776-05 ####[facility]ORATORYCLIA [id number] [place] [address] [place] Sodium [Moles/Vol] 146 mmol/L High 136-144 [facility] Comment on above: Order Comment: Speci men Type: BLOOD SPECIMENOrdering Facility: [facility] Address: [address] [place], [place] [phone] Performed By: #### 2 4321-2, , 2776-05 ####[facility]ORATORYCLIA [id number] [place] [address] [place] Urea nitrogen [Mass/Vol] 38 mg/dL High 9-24 [facility] Comment on above: Order Comment: Speci men Type: BLOOD SPECIMENOrdering Facility: [facility] Address: [address] [place] [address] Performed By: #### 2 4321-2, 19606-2, 2777-1 ####[facility]ORATORYCLIA [id number] [address] [place] CASE MANAGEMon 07-20-2021 CASE MANAGEM Normal [facility] CBC W Auto Differential pane l (Bld)on 07-20-2021 Basophils (Bld) [#/Vol] 0.05 10*3/uL Normal <0.11 [facility] Comment on above: Order Comment: Speci men Type: BLOOD SPECIMENOrdering Facility: [facility] Address: [address] [place] [address] Performed By: #### 5 7021-8 ####[facility]ORATORYCLIA [id number] [place] [address] [place] Basophils/100 WBC (Bld) 0.5 % Normal [facility] Comment on above: Order Comment: Speci men Type: BLOOD SPECIMENOrdering Facility: [facility] Address: [address] [place] [address] Performed By: #### 5 7021-8 ####[facility]ATORYCLIA [id number] [address] [place] Differential cell count method Nom (Bld) Auto Normal [facility] Comment on above: Order Comment: Speci men Type: BLOOD SPECIMENOrdering Facility: [facility] Address: [address] [place] [address] Performed By: #### 5 7021-8 ####[facility]ORATORYCLIA [id number] [place] [address] [place] Eosinophils (Bld) [#/Vol] 0.43 10*3/uL Normal <0.46 [facility] Comment on above: Order Comment: Speci men Type: BLOOD SPECIMENOrdering Facility: [facility] Address: [address] [place] [address] Performed By: #### 5 7021-8 ####[facility]ORATORYCLIA [id number] [address] Eosinophils/100 WBC (Bld) 4.1 % Normal [facility] Comment on above: Order Comment: Speci men Type: BLOOD SPECIMENOrdering Facility: [facility] Address: [address] [place] [address] Performed By: #### 5 7021-8 ####[facility]ORATORYCLIA [id number] [address] Erythrocyte distribution width (RBC) [Ratio] 16.7 % High 11.5-15.0 [facility] Comment on above: Order Comment: Speci men Type: BLOOD SPECIMENOrdering Facility: [facility] Address: [address] [place] [address] Performed By: #### 5 7021-8 ####[facility] LABORATORYCLIA [id number] [address] Hematocrit (Bld) [Volume fraction] 33.0 % Low 39.0-51.0 [facility] Comment on above: Order Comment: Speci men Type: BLOOD SPECIMENOrdering Facility: [facility] Address: [address] [place] [address] Performed By: #### 5 7021-8 ####[facility] LABORATORYCLIA [id number] [address] Hemoglobin (Bld) [Mass/Vol] 9.7 g/dL Low 13.0-17.0 [facility] Comment on above: Order Comment: Speci men Type: BLOOD SPECIMENOrdering Facility: [facility] Address: [address] [place] [address] Performed By: #### 5 7021-8 ####[facility] LABORATORYCLIA [id number] [address] IMMATURE GRAN % 0.4 % Normal [facility] Comment on above: Order Comment: Speci men Type: BLOOD SPECIMENOrdering Facility: [facility] Address: [address] [place] [address] Performed By: #### 5 7021-8 ####[facility] LABORATORYCLIA [id number] [address] IMMATURE GRAN ABS 0.04 k/uL Normal <0.10 [facility] Comment on above: Order Comment: Speci men Type: BLOOD SPECIMENOrdering Facility: [facility] Address: [address] [place] [address] Performed By: #### 5 7021-8 ####[facility] LABORATORYCLIA [id number] [address] Lymphocytes (Bld) [#/Vol] 1.99 10*3/uL Normal 1.00-4.00 [facility] Comment on above: Order Comment: Speci men Type: BLOOD SPECIMENOrdering Facility: [facility] Address: [address] [place] [address] Performed By: #### 5 7021-8 ####[facility] LABORATORYCLIA [id number] [address] Lymphocytes/100 WBC (Bld) 18.8 % Normal [facility] Comment on above: Order Comment: Speci men Type: BLOOD SPECIMENOrdering Facility: [facility] Address: [address] [place] [address] Performed By: #### 5 7021-8 ####[facility] LABORATORYCLIA [id number] [address] [place] MCH (RBC) [Entitic mass] 27.8 pg Normal 26.0-34.0 [facility] Comment on above: Order Comment: Speci men Type: BLOOD SPECIMENOrdering Facility: [facility] Address: [address] [place] [address] Performed By: #### 5 7021-8 ####[facility] LABORATORYCLIA [id number] [address] STATES OF [facility] MCHC (RBC) [Mass/Vol] 29.4 g/dL Low 30.5-36.0 [facility] Comment on above: Order Comment: Speci men Type: BLOOD SPECIMENOrdering Facility: [facility] Address: [address] [place] [address] Performed By: #### 5 7021-8 ####[facility] LABORATORYCLIA [id number] [address] MCV (RBC) [Entitic vol] 94.6 fL Normal 80.0-100.0 [facility] Comment on above: Order Comment: Speci men Type: BLOOD SPECIMENOrdering Facility: [facility] Address: [address] [place] [address] Performed By: #### 5 7021-8 ####[facility] LABORATORYCLIA [id number] [address] [place] Monocytes (Bld) [#/Vol] 0.82 10*3/uL Normal <0.87 [facility] Comment on above: Order Comment: Speci men Type: BLOOD SPECIMENOrdering Facility: [facility] Address: [address] [place] [address] Performed By: #### 5 7021-8 ####[facility] LABORATORYCLIA [id number] [address] Monocytes/100 WBC (Bld) 7.8 % Normal [facility] Comment on above: Order Comment: Speci men Type: BLOOD SPECIMENOrdering Facility: [facility] Address: [address] [place] [address] Performed By: #### 5 7021-8 ####[facility] LABORATORYCLIA [id number] [address] [place] Neutrophils (Bld) [#/Vol] 7.23 10*3/uL Normal 1.45-7.50 [facility] Comment on above: Order Comment: Speci men Type: BLOOD SPECIMENOrdering Facility: [facility] Address: [address] [address] Performed By: #### 5 7021-8 ####[facility] LABORATORYCLIA [id number] [address] Neutrophils/100 WBC (Bld) 68.4 % Normal [facility] Comment on above: Order Comment: Speci men Type: BLOOD SPECIMENOrdering Facility: [facility] Address: [address] [place] [address] Performed By: #### 5 7021-8 ####[facility] LABORATORYCLIA [id number] [address] [place] Nucleated RBC (Bld) [#/Vol] 10*3/uL Normal <0.01 [facility] Comment on above: Order Comment: Speci men Type: BLOOD SPECIMENOrdering Facility: [facility] Address: [address] [place] [address] Performed By: #### 5 7021-8 ####[facility] LABORATORYCLIA [id number] [address] [place] Nucleated RBC/100 WBC (Bld) [Ratio] 0.0 /100 WBC Normal [facility] Comment on above: Order Comment: Speci men Type: BLOOD SPECIMENOrdering Facility: [facility] Address: [address] [place] [address] Performed By: #### 5 7021-8 ####[facility] LABORATORYCLIA [id number] [address] [place] Platelet mean volume (Bld) [Entitic vol] 10.5 fL Normal 9.0-12.7 [facility] Comment on above: Order Comment: Speci men Type: BLOOD SPECIMENOrdering Facility: [facility] Address: [address] [place] [address] Performed By: #### 5 7021-8 ####[facility] LABORATORYCLIA [id number] [place] [address] [place] Platelets (Bld) [#/Vol] 400 10*3/uL Normal 150-400 [facility] Comment on above: Order Comment: Speci men Type: BLOOD SPECIMENOrdering Facility: [facility] Address: [address] [place] [address] Performed By: #### 5 7021-8 ####[facility] LABORATORYCLIA [id number] [address] [place] RBC (Bld) [#/Vol] 3.49 10*6/uL Low 4.20-6.00 [facility] Comment on above: Order Comment: Speci men Type: BLOOD SPECIMENOrdering Facility: [facility] Address: [address] [place] [address] Performed By: #### 5 7021-8 ####[facility] LABORATORYCLIA [id number] [address] WBC (Bld) [#/Vol] 10.56 10*3/uL Normal 3.70-11.00 [facility] Comment on above: Order Comment: Speci men Type: BLOOD SPECIMENOrdering Facility: [facility] Address: [address] [place] [address] Performed By: #### 5 7021-8 ####[facility] LABORATORYCLIA [id number] [address] CONSULT PROGon 07-20-2021 CONSULT PROG Normal [facility] CT BRAIN WO IVCONon 07-21-[address] BRAIN WO IVCON Normal [facility] Magnesium SerPl-mCncon 07-20 Magnesium [Mass/Vol] 2.4 mg/dL High 1.7-2.3 [facility] Comment on above: Order Comment: Speci men Type: BLOOD SPECIMENOrdering Facility: [facility] Address: [address] [place] [address] Performed By: #### 2 4321-2, 56759-6, 2777-1 ####[facility] LABORATORYCLIA [id number] [address] [place] NUTRITIONon 07-20-2021 NUTRITION Normal [facility] Phosphate SerPl-mCncon 07-20 Phosphate [Mass/Vol] 4.1 mg/dL Normal 2.7-4.8 [facility] Comment on above: Order Comment: Speci men Type: BLOOD SPECIMENOrdering Facility: [facility] Address: [address] [place] [address] Performed By: #### 2 4321-2, 57642-8, 2777-1 ####[facility] LABORATORYCLIA [id number] [place] [address] [place] aPTT PPPon 07-20-2021 aPTT Coag (PPP) [Time] 53.6 s High 23.0-32.4 [facility] Comment on above: Order Comment: Speci men Type: BLOOD SPECIMENOrdering Facility: [facility] Address: [address] [place] [address] Performed By: #### 1 4979-9 ####[facility] LABORATORYCLIA [id number] [place] [address] [place] Bacteria CSF Culton 07-20-19 22 Bacteria identified Cx Nom (CSF) CULTURE, CSF: No growth 14 days GRAM STAIN: No organisms seen No Polymorphonuclear Leukocytes Rare Mononuclear cells Gram stain performed on cytospun specimen. Normal [facility] Comment on above: Performed By: #### 6 06-4 ####[facility] LABORATORYCLIA [id number] [place] [address] [place] CONSULT PROGon 07-19-2021 CONSULT PROG Normal [facility] CSF MANUAL DIFFon 07-19-2021 DIF TTL, CSF 100 cells counted Normal [facility] Comment on above: Order Comment: Speci men Type: CEREBROSPINAL FLUIDOrdering Facility: [facility] Address: [address] [place] [address] Performed By: #### L JO1984, 27408-6, [id number] ####[facility] LABORATORYCLIA [id number] [place] [address] [place] EOSIN%, CSF 1 % Normal [facility] Comment on above: Order Comment: Speci men Type: CEREBROSPINAL FLUIDOrdering Facility: [facility] Address: [address] [address] Performed By: #### L OQ1664, 81071-8, [id number] ####[facility] LABORATORYCLIA [id number] [place] [address] [place] LYMPH%, CSF 67 % Normal 50-90 [facility] Comment on above: Order Comment: Speci men Type: CEREBROSPINAL FLUIDOrdering Facility: [facility] Address: [address] [place] [address] Performed By: #### L [id number], 40300-0, [id number] ####[facility] LABORATORYCLIA [id number] [address] [place] MACRO%, CSF 1 % High <1 [facility] Comment on above: Order Comment: Speci men Type: CEREBROSPINAL FLUIDOrdering Facility: [facility] Address: [address] [place] [address] Performed By: #### L [id number], 39559-3, [id number] ####[facility] LABORATORYCLIA [id number] [address] [place] MONO%, CSF 18 % Normal 10-50 [facility] Comment on above: Order Comment: Speci men Type: CEREBROSPINAL FLUIDOrdering Facility: [facility] Address: [address] [address] Performed By: #### L [id number], 49518-5, [id number] ####[facility] LABORATORYCLIA [id number] [address] [place] NEUT%, CSF 11 % High 0-3 [facility] Comment on above: Order Comment: Speci men Type: CEREBROSPINAL FLUIDOrdering Facility: [facility] Address: [facility] [address] Performed By: #### L [id number], 48843-2, [id number] ####[facility] LABORATORYCLIA [id number] [address] [place] OTHER CL%, CSF 2 % Normal [facility] Comment on above: Order Comment: Speci men Type: CEREBROSPINAL FLUIDOrdering Facility: [facility] Address: [address] [place] [address] Result Comment: Path review to follow. Performed By: #### L [id number], 84641-6, [id number] ####[facility] LABORATORYCLIA [id number] [address] [place] CSF PATHOLOGIST INTERP (LAB REFLEX ORDER-NO BILL)on 07-19-2021 CSF STAFF REVIEW Normal [facility] Comment on above: Order Comment: Speci men Type: CEREBROSPINAL FLUIDOrdering Facility: [facility] Address: [address] [place] [address] Performed By: #### L PA5188, 68238-2, [id number] ####[facility] LABORATORYCLIA [id number] [address] Pathologist name Reviewed by Wing Cummings MD [facility] Comment on above: Order Comment: Speci men Type: CEREBROSPINAL FLUIDOrdering Facility: [facility] Address: [address] [place] [address] Performed By: #### L [id number], 98408-4, [id number] ####[facility] LABORATORYCLIA [id number] [address] Cell count panel (CSF)on Clarity (CSF) Clear Normal Clear [facility] Comment on above: Order Comment: Speci men Type: CEREBROSPINAL FLUIDOrdering Facility: [facility] Address: [address] [place] [address] Performed By: #### L YO4895, 86044-3, [id number] ####[facility] LABORATORYCLIA [id number] [address] Clarity (Unsp spec) Not Indicated Normal Clear [facility] Comment on above: Order Comment: Speci men Type: CEREBROSPINAL FLUIDOrdering Facility: [facility] Address: [address] [address] Performed By: #### L [id number], 70063-4, [id number] ####[facility] LABORATORYCLIA [id number] [address] Color (CSF) Colorless Normal Colorless [facility] Comment on above: Order Comment: Speci men Type: CEREBROSPINAL FLUIDOrdering Facility: [facility] Address: [address] [place] [address] Performed By: #### L [id number], 50478-0, PLT4117 ####[facility] LABORATORYCLIA [id number] [address] OF [facility] Color (Spun CSF) Not Indicated Normal Colorless [facility] Comment on above: Order Comment: Speci men Type: CEREBROSPINAL FLUIDOrdering Facility: [facility] Address: [address] [place] [address] Performed By: #### L JC8892, 37272-5, ONG9486 ####[facility] LABORATORYCLIA [id number] [address] CSF [employer] Normal [facility] Comment on above: Order Comment: Speci men Type: CEREBROSPINAL FLUIDOrdering Facility: [facility] Address: [address] [place] [address] Performed By: #### L IL8996, 47400-8, [id number] ####[facility] LABORATORYCLIA [id number] [address] STATES OF [facility] RBC Manual cnt (CSF) [#/Vol] 0 cells/uL Normal 0-5 [facility] Comment on above: Order Comment: Speci men Type: CEREBROSPINAL FLUIDOrdering Facility: [facility] Address: [address] [place] [address] Performed By: #### L YK8703, 33245-0, [id number] ####[facility] LABORATORYCLIA [id number] [address] OF [facility] WBC Manual cnt (CSF) [#/Vol] 2 cells/uL Normal 0-5 [facility] Comment on above: Order Comment: Speci men Type: CEREBROSPINAL FLUIDOrdering Facility: [facility] Address: [address] [place] [address] Performed By: #### L IU9989, 61359-5, UWP8965 ####[facility] LABORATORYCLIA [id number] [address] [place] Glucose CSF-[facility] Glucose (CSF) [Mass/Vol] 69 mg/dL Normal 40-70 [facility] Comment on above: Order Comment: Speci men Type: CEREBROSPINAL FLUIDOrdering Facility: [facility] Address: [address] [place] [address] Result Comment: Lumb ar CSF glucose values of healthy patients are approximately 60% of the plasma values and must always be compared with a concurrently measured plasma value for adequate clinical interpretation.References: 1. Glucose HK (GLUC3) [package insert V 12.0 Estonian]. [employer], [place], [place]. September 2015. 2. Michelle Moore, Loki HGarfield (2015). Chapter 7: Glucose and Lactate. F. Irina rose al.(eds.), Cerebrospinal Fluid in Clinical Neurology. [place]: [employer]. Performed By: #### 2 342-4, 2880-3 ####[facility] LABORATORYCLIA [id number] [address] [place] NURSING PROGon 07-19-2021 NURSING PROG Normal [facility] NURSING PROG Normal [facility] Prot CSF-ncon 07-19-2021 Protein (CSF) [Mass/Vol] 51 mg/dL High 15-45 [facility] Comment on above: Order Comment: Speci men Type: CEREBROSPINAL FLUIDOrdering Facility: [facility] Address: [address] [place] [address] Performed By: #### 2 342-4, 2880-3 ####[facility] LABORATORYCLIA [id number] [address] [place] THERAPY NTon 07-19-2021 THERAPY NT Normal [facility] Urinalysis complete panel (U )on 07-19-2021 Bilirubin Ql (U) Negative Normal Negative [facility] Comment on above: Order Comment: Speci men Type: URINE SPECIMENOrdering Facility: [facility] Address: [address] [place] [address] Performed By: #### 2 4356-8 ####[facility] LABORATORYCLIA [id number] [address] Clarity (Unsp spec) Clear Normal Clear [facility] Comment on above: Order Comment: Speci men Type: URINE SPECIMENOrdering Facility: [facility] Address: [address] [place] [address] Performed By: #### 2 4356-8 ####[facility] LABORATORYCLIA [id number] [address] Color (U) Colorless Normal yellow [facility] Comment on above: Order Comment: Speci men Type: URINE SPECIMENOrdering Facility: [facility] Address: [address] [place] [address] Performed By: #### 2 4356-8 ####[facility] LABORATORYCLIA [id number] [address] Glucose Test strip (U) [Mass/Vol] Negative Normal Negative [facility] Comment on above: Order Comment: Speci men Type: URINE SPECIMENOrdering Facility: [facility] Address: [address] [place] [address] Performed By: #### 2 4356-8 ####[facility] LABORATORYCLIA [id number] [address] Hemoglobin Ql (U) Trace Abnormal Negative [facility] Comment on above: Order Comment: Speci men Type: URINE SPECIMENOrdering Facility: [facility] Address: [address] [place] [address] Performed By: #### 2 4356-8 ####[facility] LABORATORYCLIA [id number] [address] [place] Hyaline casts (Urine sed) [#/Area] 1-3 /LPF Abnormal 0 /LPF [facility] Comment on above: Order Comment: Speci men Type: URINE SPECIMENOrdering Facility: [facility] Address: [address] [place] [address] Performed By: #### 2 4356-8 ####[facility] LABORATORYCLIA [id number] [address] Ketones Ql (U) Negative Normal Negative [facility] Comment on above: Order Comment: Speci men Type: URINE SPECIMENOrdering Facility: [facility] Address: [address] [place] [address] Performed By: #### 2 4356-8 ####[facility] LABORATORYCLIA [id number] [address] Leukocyte esterase Test strip Ql (U) Negative Normal Negative [facility] Comment on above: Order Comment: Speci men Type: URINE SPECIMENOrdering Facility: [facility] Address: [address] [place] [address] Performed By: #### 2 4356-8 ####[facility] LABORATORYCLIA [id number] [address] STATES [facility] Nitrite Ql (U) Negative Normal Negative [facility] Comment on above: Order Comment: Speci men Type: URINE SPECIMENOrdering Facility: [facility] Address: [address] [place] [address] Performed By: #### 2 4356-8 ####[facility] LABORATORYCLIA [id number] [address] [place] pH (U) 7.0 [pH] Normal 5.0-8.0 [facility] Comment on above: Order Comment: Speci men Type: URINE SPECIMENOrdering Facility: [facility] Address: [address] [place] [address] Performed By: #### 2 4356-8 ####[facility] LABORATORYCLIA [id number] [address] [place] Protein (U) [Mass/Vol] Negative Normal Negative [facility] Comment on above: Order Comment: Speci men Type: URINE SPECIMENOrdering Facility: [facility] Address: [address] [place] [address] Performed By: #### 2 4356-8 ####[facility] LABORATORYCLIA [id number] [address] [place] RBC LM.HPF (Urine sed) [#/Area] 6-10 /HPF Abnormal 0-3 /HPF [facility] Comment on above: Order Comment: Speci men Type: URINE SPECIMENOrdering Facility: [facility] Address: [address] [place] [address] Performed By: #### 2 4356-8 ####[facility] LABORATORYCLIA [id number] [address] Specific gravity (U) [Rel density] 1.008 Normal 1.005-1.030 [facility] Comment on above: Order Comment: Speci men Type: URINE SPECIMENOrdering Facility: [facility] Address: [address] [place] [address] Performed By: #### 2 4356-8 ####[facility] LABORATORYCLIA [id number] [address] Urobilinogen Ql (U) Normal Normal Negative [facility] Comment on above: Order Comment: Speci men Type: URINE SPECIMENOrdering Facility: [facility] Address: [address] [place] [address] Performed By: #### 2 4356-8 ####[facility] LABORATORYCLIA [id number] [address] [place] WBC LM.HPF (Urine sed) [#/Area] 0-5 /HPF Normal 0-5 /HPF [facility] Comment on above: Order Comment: Speci men Type: URINE SPECIMENOrdering Facility: [facility] Address: [address] [place] [address] Performed By: #### 2 4356-8 ####[facility] LABORATORYCLIA [id number] [address] STATES OF [facility] Vancomycin random [Mass/Vol] on 07-19-2021 Vancomycin [Mass/Vol] 13.9 ug/mL Normal 10.0-20.0 [facility] Comment on above: Order Comment: Speci men Type: BLOOD SPECIMENOrdering Facility: [facility] Address: [address] [place] [address] Result Comment: Refe rence ranges and high/low indicator flags are provided as general guidelines only. The treating physician must determine appropriate target levels/dosing based on the specific clinical situation. Performed By: #### 4 091-5 ####[facility] LABORATORYCLIA [id number] [address] STATES OF [facility] aPTT PPPon 07-19-2021 aPTT Coag (PPP) [Time] 53.9 s High 23.0-32.4 [facility] Comment on above: Order Comment: Speci men Type: BLOOD SPECIMENOrdering Facility: [facility] Address: [address] [place] [address] Performed By: #### 1 4979-9 ####[facility]ENTERCLIA [id number] [place] [address] [place] Basic metabolic 2000 panelon 07-18-2021 Anion gap [Moles/Vol] 6 mmol/L Low 9-18 [facility] Comment on above: Order Comment: Speci men Type: BLOOD SPECIMENOrdering Facility: [facility] Address: [address] [place] [address] Performed By: #### 2 4321-2, 00885-6, 2777-1 ####[facility] LABORATORYCLIA [id number] [address] [place] Calcium [Mass/Vol] 9.4 mg/dL Normal 8.5-10.2 [facility] Comment on above: Order Comment: Speci men Type: BLOOD SPECIMENOrdering Facility: [facility] Address: [address] [place] [address] Performed By: #### 2 4321-2, , 2776-05 ####[facility] LABORATORYCLIA [id number] [place] [id number] [place] Chloride [Moles/Vol] 103 mmol/L Normal 97-105 [facility] Comment on above: Order Comment: Speci men Type: BLOOD SPECIMENOrdering Facility: [facility] Address: [address] [place] [address] Performed By: #### 2 4321-2, , 2776-05 ####[facility] LABORATORYCLIA [id number] [place] [address] [place] CO2 [Moles/Vol] 34 mmol/L High 22-30 [facility] Comment on above: Order Comment: Speci men Type: BLOOD SPECIMENOrdering Facility: [facility] Address: [address] [place] [address] Performed By: #### 2 4321-2, , 2776-05 ####[facility] LABORATORYCLIA [id number] [address] STATES OF [facility] Creatinine [Mass/Vol] 0.75 mg/dL Normal 0.73-1.22 [facility] Comment on above: Order Comment: Speci men Type: BLOOD SPECIMENOrdering Facility: [facility] Address: [address] [place] [address] Performed By: #### 2 4321-2, , 2776-05 ####[facility]ORATORYCLIA [id number] [address] ESTIMATED GLOMERULAR FILTRATION RATE 98 mL/min/1.73m??? Normal >=60 [facility] Comment on above: Order Comment: Speci men Type: BLOOD SPECIMENOrdering Facility: [facility] Address: [address] [place] [address] Result Comment: Luzmaria mated Glomerular Filtration Rate [...] #### 2 4321-2, , 2776-05 ####[facility]ORATORYCLIA [id number] [place] [address] [place] Glucose [Mass/Vol] 125 mg/dL High 74-99 [facility] Comment on above: Order Comment: Shira feldman Type: BLOOD SPECIMENOrdering Facility: [facility] Address: [address] [place] [id number] Result Comment: The [place] [employer] (ADA) provides guidance for cutoff [...] Standards of Medical Care in Diabetes 2016, [place] [employer]. Diabetes Care. 2016.39(Suppl 1). Performed By: #### 2 4321-2, , 2776-05 ####[facility]ORATORYCLIA [id number] [place] [address] [place] Potassium [Moles/Vol] 4.4 mmol/L Normal 3.7-5.1 [facility] Comment on above: Order Comment: Shira feldman Type: BLOOD SPECIMENOrdering Facility: [facility] Address: [address] [place] [address] Performed By: #### 2 4321-2, , 2776-05 ####[facility]ORATORYCLIA [id number] [place] [address] [place] Sodium [Moles/Vol] 143 mmol/L Normal 136-144 [facility] Comment on above: Order Comment: Speci men Type: BLOOD SPECIMENOrdering Facility: [facility] Address: [address] [place] [address] Performed By: #### 2 4321-2, , 2776-05 ####[facility]ORATORYCLIA [id number] [address] STATES [facility] Urea nitrogen [Mass/Vol] 33 mg/dL High 9-24 [facility] Comment on above: Order Comment: Speci men Type: BLOOD SPECIMENOrdering Facility: [facility] Address: [address] [place] [address] Performed By: #### 2 4321-2, , 2776-05 ####[facility]ORATORYCLIA [id number] [address] [place] CASE MANAGEMon 07-18-2021 CASE MANAGEM Normal [facility] CBC W Auto Differential pane l (Bld)on 07-18-2021 Basophils (Bld) [#/Vol] 0.05 10*3/uL Normal <0.11 [facility] Comment on above: Order Comment: Speci men Type: BLOOD SPECIMENOrdering Facility: [facility] Address: [address] [place] [address] Performed By: #### 5 7021-8 ####[facility]ORATORYCLIA [id number] [address] STATES [facility] Basophils/100 WBC (Bld) 0.5 % Normal [facility] Comment on above: Order Comment: Speci men Type: BLOOD SPECIMENOrdering Facility: [facility] Address: [address] [place] [address] Performed By: #### 5 7021-8 ####[facility]ORATORYCLIA [id number] [address] STATES OF [facility] Differential cell count method Nom (Bld) Auto Normal [facility] Comment on above: Order Comment: Speci men Type: BLOOD SPECIMENOrdering Facility: [facility] Address: [address] [place] [address] Performed By: #### 5 7021-8 ####[facility]ORATORYCLIA [id number] [address] [place] Eosinophils (Bld) [#/Vol] 0.44 10*3/uL Normal <0.46 [facility] Comment on above: Order Comment: Speci men Type: BLOOD SPECIMENOrdering Facility: [facility] Address: [address] [place] [address] Performed By: #### 5 7021-8 ####[facility]ATORYCLIA [id number] [address] Eosinophils/100 WBC (Bld) 4.3 % Normal [facility] Comment on above: Order Comment: Speci men Type: BLOOD SPECIMENOrdering Facility: [facility] Address: [address] [place] [address] Performed By: #### 5 7021-8 ####[facility]ORATORYCLIA [id number] [address] Erythrocyte distribution width (RBC) [Ratio] 16.6 % High 11.5-15.0 [facility] Comment on above: Order Comment: Speci men Type: BLOOD SPECIMENOrdering Facility: [facility] Address: [address] [place] [address] Performed By: #### 5 7021-8 ####[facility]ORATORYCLIA [id number] [address] Hematocrit (Bld) [Volume fraction] 32.2 % Low 39.0-51.0 [facility] Comment on above: Order Comment: Speci men Type: BLOOD SPECIMENOrdering Facility: [facility] Address: [address] [place] [address] Performed By: #### 5 7021-8 ####[facility]ORATORYCLIA [id number] [address] [place] Hemoglobin (Bld) [Mass/Vol] 9.5 g/dL Low 13.0-17.0 [facility] Comment on above: Order Comment: Speci men Type: BLOOD SPECIMENOrdering Facility: [facility] Address: [address] [place] [address] Performed By: #### 5 7021-8 ####[facility] LABORATORYCLIA [id number] [address] IMMATURE GRAN % 0.4 % Normal [facility] Comment on above: Order Comment: Speci men Type: BLOOD SPECIMENOrdering Facility: [facility] Address: [address] [place] [address] Performed By: #### 5 7021-8 ####[facility]ORATORYCLIA [id number] [address] IMMATURE GRAN ABS 0.04 k/uL Normal <0.10 [facility] Comment on above: Order Comment: Speci men Type: BLOOD SPECIMENOrdering Facility: [facility] Address: [address] [place] [address] Performed By: #### 5 7021-8 ####[facility]ORATORYCLIA [id number] [address] Lymphocytes (Bld) [#/Vol] 1.71 10*3/uL Normal 1.00-4.00 [facility] Comment on above: Order Comment: Speci men Type: BLOOD SPECIMENOrdering Facility: [facility] Address: [address] [place] [address] Performed By: #### 5 7021-8 ####[facility]ORATORYCLIA [id number] [address] Lymphocytes/100 WBC (Bld) 16.9 % Normal [facility] Comment on above: Order Comment: Speci men Type: BLOOD SPECIMENOrdering Facility: [facility] Address: [address] [place] [address] Performed By: #### 5 7021-8 ####[facility] LABORATORYCLIA [id number] [address] MCH (RBC) [Entitic mass] 27.9 pg Normal 26.0-34.0 [facility] Comment on above: Order Comment: Speci men Type: BLOOD SPECIMENOrdering Facility: [facility] Address: [address] [place] [address] Performed By: #### 5 7021-8 ####[facility]ORATORYCLIA [id number] [address] STATES [facility] MCHC (RBC) [Mass/Vol] 29.5 g/dL Low 30.5-36.0 [facility] Comment on above: Order Comment: Speci men Type: BLOOD SPECIMENOrdering Facility: [facility] Address: [address] [place] [address] Performed By: #### 5 7021-8 ####[facility]ORATORYCLIA [id number] [address] STATES OF [facility] MCV (RBC) [Entitic vol] 94.7 fL Normal 80.0-100.0 [facility] Comment on above: Order Comment: Speci men Type: BLOOD SPECIMENOrdering Facility: [facility] Address: [address] [place] [address] Performed By: #### 5 7021-8 ####[facility]ORATORYCLIA [id number] [address] Monocytes (Bld) [#/Vol] 0.69 10*3/uL Normal <0.87 [facility] Comment on above: Order Comment: Speci men Type: BLOOD SPECIMENOrdering Facility: [facility] Address: [address] [place] [address] Performed By: #### 5 7021-8 ####[facility]ORATORYCLIA [id number] [address] Monocytes/100 WBC (Bld) 6.8 % Normal [facility] Comment on above: Order Comment: Speci men Type: BLOOD SPECIMENOrdering Facility: [facility] Address: [address] [place] [address] Performed By: #### 5 7021-8 ####[facility]ORATORYCLIA [id number] [place] [address] [place] Neutrophils (Bld) [#/Vol] 7.19 10*3/uL Normal 1.45-7.50 [facility] Comment on above: Order Comment: Speci men Type: BLOOD SPECIMENOrdering Facility: [facility] Address: [address] [place] [address] Performed By: #### 5 7021-8 ####[facility]ORATORYCLIA [id number] [address] [place] Neutrophils/100 WBC (Bld) 71.1 % Normal [facility] Comment on above: Order Comment: Speci men Type: BLOOD SPECIMENOrdering Facility: [facility] Address: [address] [place] [address] Performed By: #### 5 7021-8 ####[facility]ORATORYCLIA [id number] [address] [place] Nucleated RBC (Bld) [#/Vol] 10*3/uL Normal <0.01 [facility] Comment on above: Order Comment: Speci men Type: BLOOD SPECIMENOrdering Facility: [facility] Address: [address] [place] [address] Performed By: #### 5 7021-8 ####[facility]ORATORYCLIA [id number] [address] [place] Nucleated RBC/100 WBC (Bld) [Ratio] 0.0 /100 WBC Normal [facility] Comment on above: Order Comment: Speci men Type: BLOOD SPECIMENOrdering Facility: [facility] Address: [address] [place] [address] Performed By: #### 5 7021-8 ####[facility]ORATORYCLIA [id number] [address] [place] Platelet mean volume (Bld) [Entitic vol] 10.3 fL Normal 9.0-12.7 [facility] Comment on above: Order Comment: Speci men Type: BLOOD SPECIMENOrdering Facility: [facility] Address: [address] [place] [address] Performed By: #### 5 7021-8 ####[facility]ORATORYCLIA [id number] [address] Platelets (Bld) [#/Vol] 403 10*3/uL High 150-400 [facility] Comment on above: Order Comment: Speci men Type: BLOOD SPECIMENOrdering Facility: [facility] Address: [address] [place] [address] Performed By: #### 5 7021-8 ####[facility]ORATORYCLIA [id number] [address] [place] RBC (Bld) [#/Vol] 3.40 10*6/uL Low 4.20-6.00 [facility] Comment on above: Order Comment: Speci men Type: BLOOD SPECIMENOrdering Facility: [facility] Address: [address] [place] [address] Performed By: #### 5 7021-8 ####[facility]ORATORYCLIA [id number] [address] OF [facility] WBC (Bld) [#/Vol] 10.12 10*3/uL Normal 3.70-11.00 [facility] Comment on above: Order Comment: Speci men Type: BLOOD SPECIMENOrdering Facility: [facility] Address: [address] [place] [address] Performed By: #### 5 7021-8 ####[facility]ORATORYCLIA [id number] [address] Magnesium SerPl-mCncon 07-18 Magnesium [Mass/Vol] 2.4 mg/dL High 1.7-2.3 [facility] Comment on above: Order Comment: Speci men Type: BLOOD SPECIMENOrdering Facility: [facility] Address: [address] [place] [address] Performed By: #### 2 4321-2, 82870-2, 2777-1 ####[facility]ORATORYCLIA [id number] [address] [place] NURSING PROGon 07-18-2021 NURSING PROG Normal [facility] NURSING PROG Normal [facility] Phosphate SerPl-mCncon 07-18 Phosphate [Mass/Vol] 3.9 mg/dL Normal 2.7-4.8 [facility] Comment on above: Order Comment: Speci men Type: BLOOD SPECIMENOrdering Facility: [facility] Address: [address] [place] [address] Performed By: #### 2 4321-2, 96809-1, 2777-1 ####[facility]ORATORYCLIA [id number] [address] THERAPY NTon 07-18-2021 THERAPY NT Normal [facility] aPTT PPPon 07-18-2021 aPTT Coag (PPP) [Time] 52.3 s High 23.0-32.4 [facility] Comment on above: Order Comment: Speci men Type: BLOOD SPECIMENOrdering Facility: [facility] Address: [address] [place] [address] Performed By: #### 1 4979-9 ####[facility]ORATORYCLIA [id number] [address] STATES OF [facility] CBC W Auto Differential pane l (Bld)on 07-17-2021 Basophils (Bld) [#/Vol] 0.05 10*3/uL Normal <0.11 [facility] Comment on above: Order Comment: Speci men Type: BLOOD SPECIMENOrdering Facility: [facility] Address: [address] [place] [address] Performed By: #### 5 7021-8 ####[facility]ORATORYCLIA [id number] [address] Basophils/100 WBC (Bld) 0.5 % Normal [facility] Comment on above: Order Comment: Speci men Type: BLOOD SPECIMENOrdering Facility: [facility] Address: [address] [address] Performed By: #### 5 7021-8 ####[facility]ORATORYCLIA [id number] [address] Differential cell count method Nom (Bld) Auto Normal [facility] Comment on above: Order Comment: Speci men Type: BLOOD SPECIMENOrdering Facility: [facility] Address: [address] [place] [address] Performed By: #### 5 7021-8 ####[facility]ORATORYCLIA [id number] [address] [place] Eosinophils (Bld) [#/Vol] 0.32 10*3/uL Normal <0.46 [facility] Comment on above: Order Comment: Speci men Type: BLOOD SPECIMENOrdering Facility: [facility] Address: [address] [place] [address] Performed By: #### 5 7021-8 ####[facility]ORATORYCLIA [id number] [address] Eosinophils/100 WBC (Bld) 3.4 % Normal [facility] Comment on above: Order Comment: Speci men Type: BLOOD SPECIMENOrdering Facility: [facility] Address: [address] [place] [address] Performed By: #### 5 7021-8 ####[facility]ORATORYCLIA [id number] [address] [place] Erythrocyte distribution width (RBC) [Ratio] 16.6 % High 11.5-15.0 [facility] Comment on above: Order Comment: Speci men Type: BLOOD SPECIMENOrdering Facility: [facility] Address: [address] [place] [address] Performed By: #### 5 7021-8 ####[facility]ATORYCLIA [id number] [address] [place] Hematocrit (Bld) [Volume fraction] 30.7 % Low 39.0-51.0 [facility] Comment on above: Order Comment: Speci men Type: BLOOD SPECIMENOrdering Facility: [facility] Address: [address] [place] [address] Performed By: #### 5 7021-8 ####[facility]ORATORYCLIA [id number] [address] [place] Hemoglobin (Bld) [Mass/Vol] 9.0 g/dL Low 13.0-17.0 [facility] Comment on above: Order Comment: Speci men Type: BLOOD SPECIMENOrdering Facility: [facility] Address: [address] [place] [address] Performed By: #### 5 7021-8 ####[facility]ORATORYCLIA [id number] [address] IMMATURE GRAN % 0.6 % Normal [facility] Comment on above: Order Comment: Speci men Type: BLOOD SPECIMENOrdering Facility: [facility] Address: [address] [place] [address] Performed By: #### 5 7021-8 ####[facility]ORATORYCLIA [id number] [address] IMMATURE GRAN ABS 0.06 k/uL Normal <0.10 [facility] Comment on above: Order Comment: Speci men Type: BLOOD SPECIMENOrdering Facility: [facility] Address: [address] [place] [address] Performed By: #### 5 7021-8 ####[facility]ORATORYCLIA [id number] [address] [place] Lymphocytes (Bld) [#/Vol] 1.61 10*3/uL Normal 1.00-4.00 [facility] Comment on above: Order Comment: Speci men Type: BLOOD SPECIMENOrdering Facility: [facility] Address: [address] [place] [address] Performed By: #### 5 7021-8 ####[facility]ORATORYCLIA [id number] [address] Lymphocytes/100 WBC (Bld) 17.3 % Normal [facility] Comment on above: Order Comment: Speci men Type: BLOOD SPECIMENOrdering Facility: [facility] Address: [address] [place] [address] Performed By: #### 5 7021-8 ####[facility]ORATORYCLIA [id number] [address] STATES OF [facility] MCH (RBC) [Entitic mass] 26.9 pg Normal 26.0-34.0 [facility] Comment on above: Order Comment: Speci men Type: BLOOD SPECIMENOrdering Facility: [facility] Address: [address] [place] [address] Performed By: #### 5 7021-8 ####[facility]ORATORYCLIA [id number] [address] [place] MCHC (RBC) [Mass/Vol] 29.3 g/dL Low 30.5-36.0 [facility] Comment on above: Order Comment: Speci men Type: BLOOD SPECIMENOrdering Facility: [facility] Address: [address] [place] [address] Performed By: #### 5 7021-8 ####[facility]ORATORYCLIA [id number] [address] MCV (RBC) [Entitic vol] 91.9 fL Normal 80.0-100.0 [facility] Comment on above: Order Comment: Speci men Type: BLOOD SPECIMENOrdering Facility: [facility] Address: [address] [place] [address] Performed By: #### 5 7021-8 ####[facility]ORATORYCLIA [id number] [address] Monocytes (Bld) [#/Vol] 0.61 10*3/uL Normal <0.87 [facility] Comment on above: Order Comment: Speci men Type: BLOOD SPECIMENOrdering Facility: [facility] Address: [address] [place] [address] Performed By: #### 5 7021-8 ####[facility]ORATORYCLIA [id number] [address] [place] Monocytes/100 WBC (Bld) 6.6 % Normal [facility] Comment on above: Order Comment: Speci men Type: BLOOD SPECIMENOrdering Facility: [facility] Address: [address] [place] [address] Performed By: #### 5 7021-8 ####[facility]ATORYCLIA [id number] [place] [address] [place] Neutrophils (Bld) [#/Vol] 6.64 10*3/uL Normal 1.45-7.50 [facility] Comment on above: Order Comment: Speci men Type: BLOOD SPECIMENOrdering Facility: [facility] Address: [address] [place] [address] Performed By: #### 5 7021-8 ####[facility]ATORYCLIA [id number] [address] Neutrophils/100 WBC (Bld) 71.6 % Normal [facility] Comment on above: Order Comment: Speci men Type: BLOOD SPECIMENOrdering Facility: [facility] Address: [address] [place] [address] Performed By: #### 5 7021-8 ####[facility] LABORATORYCLIA [id number] [address] [place] Nucleated RBC (Bld) [#/Vol] 10*3/uL Normal <0.01 [facility] Comment on above: Order Comment: Speci men Type: BLOOD SPECIMENOrdering Facility: [facility] Address: [address] [place] [address] Performed By: #### 5 7021-8 ####[facility]ATORYCLIA [id number] [address] [place] Nucleated RBC/100 WBC (Bld) [Ratio] 0.0 /100 WBC Normal [facility] Comment on above: Order Comment: Speci men Type: BLOOD SPECIMENOrdering Facility: [facility] Address: [address] Performed By: #### 5 7021-8 ####[facility] LABORATORYCLIA [id number] [address] STATES [facility] Platelet mean volume (Bld) [Entitic vol] 10.1 fL Normal 9.0-12.7 [facility] Comment on above: Order Comment: Speci men Type: BLOOD SPECIMENOrdering Facility: [facility] Address: [address] [place] [address] Performed By: #### 5 7021-8 ####[facility]ORATORYCLIA [id number] [address] [place] Platelets (Bld) [#/Vol] 387 10*3/uL Normal 150-400 [facility] Comment on above: Order Comment: Speci men Type: BLOOD SPECIMENOrdering Facility: [facility] Address: [address] [place] [address] Performed By: #### 5 7021-8 ####[facility]ORATORYCLIA [id number] [address] [place] RBC (Bld) [#/Vol] 3.34 10*6/uL Low 4.20-6.00 [facility] Comment on above: Order Comment: Speci men Type: BLOOD SPECIMENOrdering Facility: [facility] Address: [address] [place], [place] [id number] Performed By: #### 5 7021-8 ####[facility] LABORATORYCLIA [id number] [address] [place] WBC (Bld) [#/Vol] 9.29 10*3/uL Normal 3.70-11.00 [facility] Comment on above: Order Comment: Speci men Type: BLOOD SPECIMENOrdering Facility: [facility] Address: [address] [place] [address] Performed By: #### 5 7021-8 ####[facility]ORATORYCLIA [id number] [address] [place] CONSULT PROGon 07-17-2021 CONSULT PROG Normal [facility] Magnesium SerPl-mCncon 07-17 Magnesium [Mass/Vol] 2.3 mg/dL Normal 1.7-2.3 [facility] Comment on above: Order Comment: Speci men Type: BLOOD SPECIMENOrdering Facility: [facility] Address: [address] [place] [address] Performed By: #### 2 777-1, 76981-6 ####[facility] LABORATORYCLIA [id number] [address] NURSING PROGon 07-17-2021 NURSING PROG Normal [facility] NURSING PROG Normal [facility] NURSING PROG Normal [facility] Phosphate SerPl-mCncon 07-17 Phosphate [Mass/Vol] 3.6 mg/dL Normal 2.7-4.8 [facility] Comment on above: Order Comment: Speci men Type: BLOOD SPECIMENOrdering Facility: [facility] Address: [address] [place] [address] Performed By: #### 2 777-1, 48858-1 ####[facility] LABORATORYCLIA [id number] [address] aPTT PPPon 07-17-2021 aPTT Coag (PPP) [Time] 57.2 s High 23.0-32.4 [facility] Comment on above: Order Comment: Speci men Type: BLOOD SPECIMENOrdering Facility: [facility] Address: [address] [place] [address] Performed By: #### 1 4979-9 ####[facility]ORATORYCLIA [id number] [address] [place] Basic metabolic 2000 panelon 07-16-2021 Anion gap [Moles/Vol] 5 mmol/L Low 9-18 [facility] Comment on above: Order Comment: Speci men Type: BLOOD SPECIMENOrdering Facility: [facility] Address: [address] [place], [place] [id number] Performed By: #### 2 777-1, 99252-1, ####[facility]ATORYCLIA [id number] [place] [address] [place] Calcium [Mass/Vol] 9.1 mg/dL Normal 8.5-10.2 [facility] Comment on above: Order Comment: Speci men Type: BLOOD SPECIMENOrdering Facility: [facility] Address: [address] [place] [address] Performed By: #### 2 777-1, 41594-4, ####[facility]ORATORYCLIA [id number] [place] [address] [place] Chloride [Moles/Vol] 101 mmol/L Normal 97-105 [facility] Comment on above: Order Comment: Speci men Type: BLOOD SPECIMENOrdering Facility: [facility] Address: [address] [place] [address] Performed By: #### 2 777-1, , ####[facility]ORATORYCLIA [id number] [place] [address] [place] CO2 [Moles/Vol] 35 mmol/L High 22-30 [facility] Comment on above: Order Comment: Speci men Type: BLOOD SPECIMENOrdering Facility: [facility] Address: [address] [place] [address] Performed By: #### 2 777-1, , ####[facility]ORATORYCLIA [id number] [place] [address] [place] Creatinine [Mass/Vol] 0.73 mg/dL Normal 0.73-1.22 [facility] Comment on above: Order Comment: Speci men Type: BLOOD SPECIMENOrdering Facility: [facility] Address: [address] [place] [address] Performed By: #### 2 777-1, 48909-8, ####[facility]ORATORYCLIA [id number] [place] [address] [place] ESTIMATED GLOMERULAR FILTRATION RATE 98 mL/min/1.73m??? Normal >=60 [facility] Comment on above: Order Comment: Shira feldman Type: BLOOD SPECIMENOrdering Facility: [facility] Address: [address] [place], [place] [id number] Result Comment: Luzmaria mated Glomerular Filtration Rate [...] actual GFR. Performed By: #### 2 777-1, 81740-6, ####[facility]ORATORYCLIA [id number] [place] [id number] [place] Glucose [Mass/Vol] 133 mg/dL High 74-99 [facility] Comment on above: Order Comment: Shira feldman Type: BLOOD SPECIMENOrdering Facility: [facility] Address: [address] [place] [address] Result Comment: The [place] [employer] (ADA) provides guidance for cutoff [...] Standards of Medical Care in Diabetes 2016, [place] [employer]. Diabetes Care. 2016.39(Suppl 1). Performed By: #### 2 777-1, 01970-9, ####[facility]ORATORYCLIA [id number] [place] [address] [place] Potassium [Moles/Vol] 4.2 mmol/L Normal 3.7-5.1 [facility] Comment on above: Order Comment: Speci men Type: BLOOD SPECIMENOrdering Facility: [facility] Address: [address] [place] [address] Performed By: #### 2 777-1, 71368-0, ####[facility]ORATORYCLIA [id number] [place] [address] [place] Sodium [Moles/Vol] 141 mmol/L Normal 136-144 [facility] Comment on above: Order Comment: Speci men Type: BLOOD SPECIMENOrdering Facility: [facility] Address: [address] [place] [address] Performed By: #### 2 777-1, , ####[facility]ORATORYCLIA [id number] [address] [place] Urea nitrogen [Mass/Vol] 21 mg/dL Normal 9-24 [facility] Comment on above: Order Comment: Speci men Type: BLOOD SPECIMENOrdering Facility: [facility] Address: [address] [place] [address] Performed By: #### 2 777-1, , ####[facility]ORATORYCLIA [id number] [address] [place] CBC W Auto Differential pane l (Bld)on 07-16-2021 Basophils (Bld) [#/Vol] 0.06 10*3/uL Normal <0.11 [facility] Comment on above: Order Comment: Speci men Type: BLOOD SPECIMENOrdering Facility: [facility] Address: [address] [place] [address] Performed By: #### 5 7021-8 ####[facility]ORATORYCLIA [id number] [address] [place] Basophils/100 WBC (Bld) 0.7 % Normal [facility] Comment on above: Order Comment: Speci men Type: BLOOD SPECIMENOrdering Facility: [facility] Address: [address] [address] Performed By: #### 5 7021-8 ####[facility]ORATORYCLIA [id number] [address] Differential cell count method Nom (Bld) Auto Normal [facility] Comment on above: Order Comment: Speci men Type: BLOOD SPECIMENOrdering Facility: [facility] Address: [address] [place] [address] Performed By: #### 5 7021-8 ####[facility]ORATORYCLIA [id number] [address] [place] Eosinophils (Bld) [#/Vol] 0.35 10*3/uL Normal <0.46 [facility] Comment on above: Order Comment: Speci men Type: BLOOD SPECIMENOrdering Facility: [facility] Address: [address] [place] [address] Performed By: #### 5 7021-8 ####[facility]ORATORYCLIA [id number] [address] Eosinophils/100 WBC (Bld) 3.9 % Normal [facility] Comment on above: Order Comment: Speci men Type: BLOOD SPECIMENOrdering Facility: [facility] Address: [address] [place] [address] Performed By: #### 5 7021-8 ####[facility]ORATORYCLIA [id number] [address] [place] Erythrocyte distribution width (RBC) [Ratio] 16.5 % High 11.5-15.0 [facility] Comment on above: Order Comment: Speci men Type: BLOOD SPECIMENOrdering Facility: [facility] Address: [address] [place] [address] Performed By: #### 5 7021-8 ####[facility]ORATORYCLIA [id number] [address] [place] Hematocrit (Bld) [Volume fraction] 30.9 % Low 39.0-51.0 [facility] Comment on above: Order Comment: Speci men Type: BLOOD SPECIMENOrdering Facility: [facility] Address: [address] [place] [address] Performed By: #### 5 7021-8 ####[facility]ORATORYCLIA [id number] [address] [place] Hemoglobin (Bld) [Mass/Vol] 9.1 g/dL Low 13.0-17.0 [facility] Comment on above: Order Comment: Speci men Type: BLOOD SPECIMENOrdering Facility: [facility] Address: [address] [place] [address] Performed By: #### 5 7021-8 ####[facility]ORATORYCLIA [id number] [address] IMMATURE GRAN % 0.4 % Normal [facility] Comment on above: Order Comment: Speci men Type: BLOOD SPECIMENOrdering Facility: [facility] Address: [address] [place] [address] Performed By: #### 5 7021-8 ####[facility]ORATORYCLIA [id number] [address] IMMATURE GRAN ABS 0.04 k/uL Normal <0.10 [facility] Comment on above: Order Comment: Speci men Type: BLOOD SPECIMENOrdering Facility: [facility] Address: [address] [place] [address] Performed By: #### 5 7021-8 ####[facility]ORATORYCLIA [id number] [address] [place] Lymphocytes (Bld) [#/Vol] 1.35 10*3/uL Normal 1.00-4.00 [facility] Comment on above: Order Comment: Speci men Type: BLOOD SPECIMENOrdering Facility: [facility] Address: [address] [place] [address] Performed By: #### 5 7021-8 ####[facility]ORATORYCLIA [id number] [address] Lymphocytes/100 WBC (Bld) 15.0 % Normal [facility] Comment on above: Order Comment: Speci men Type: BLOOD SPECIMENOrdering Facility: [facility] Address: [address] [place] [address] Performed By: #### 5 7021-8 ####[facility]ORATORYCLIA [id number] [address] STATES OF [facility] MCH (RBC) [Entitic mass] 27.1 pg Normal 26.0-34.0 [facility] Comment on above: Order Comment: Speci men Type: BLOOD SPECIMENOrdering Facility: [facility] Address: [address] [place] [address] Performed By: #### 5 7021-8 ####[facility]ORATORYCLIA [id number] [address] MCHC (RBC) [Mass/Vol] 29.4 g/dL Low 30.5-36.0 [facility] Comment on above: Order Comment: Speci men Type: BLOOD SPECIMENOrdering Facility: [facility] Address: [address] [place] [address] Performed By: #### 5 7021-8 ####[facility]ORATORYCLIA [id number] [address] MCV (RBC) [Entitic vol] 92.0 fL Normal 80.0-100.0 [facility] Comment on above: Order Comment: Speci men Type: BLOOD SPECIMENOrdering Facility: [facility] Address: [address] [place] [address] Performed By: #### 5 7021-8 ####[facility]ORATORYCLIA [id number] [address] Monocytes (Bld) [#/Vol] 0.53 10*3/uL Normal <0.87 [facility] Comment on above: Order Comment: Speci men Type: BLOOD SPECIMENOrdering Facility: [facility] Address: [address] [place] [address] Performed By: #### 5 7021-8 ####[facility]ORATORYCLIA [id number] [address] [place] Monocytes/100 WBC (Bld) 5.9 % Normal [facility] Comment on above: Order Comment: Speci men Type: BLOOD SPECIMENOrdering Facility: [facility] Address: [address] [place] [address] Performed By: #### 5 7021-8 ####[facility]ORATORYCLIA [id number] [address] [place] Neutrophils (Bld) [#/Vol] 6.67 10*3/uL Normal 1.45-7.50 [facility] Comment on above: Order Comment: Speci men Type: BLOOD SPECIMENOrdering Facility: [facility] Address: [address] [place] [address] Performed By: #### 5 7021-8 ####[facility]ORATORYCLIA [id number] [address] Neutrophils/100 WBC (Bld) 74.1 % Normal [facility] Comment on above: Order Comment: Speci men Type: BLOOD SPECIMENOrdering Facility: [facility] Address: [address] [place] [address] Performed By: #### 5 7021-8 ####[facility]ORATORYCLIA [id number] [address] [place] Nucleated RBC (Bld) [#/Vol] 10*3/uL Normal <0.01 [facility] Comment on above: Order Comment: Speci men Type: BLOOD SPECIMENOrdering Facility: [facility] Address: [address] [place] [address] Performed By: #### 5 7021-8 ####[facility]ORATORYCLIA [id number] [address] [place] Nucleated RBC/100 WBC (Bld) [Ratio] 0.0 /100 WBC Normal [facility] Comment on above: Order Comment: Speci men Type: BLOOD SPECIMENOrdering Facility: [facility] Address: [address] [place], [place] [id number] Performed By: #### 5 7021-8 ####[facility]ORATORYCLIA [id number] [address] [place] Platelet mean volume (Bld) [Entitic vol] 9.9 fL Normal 9.0-12.7 [facility] Comment on above: Order Comment: Speci men Type: BLOOD SPECIMENOrdering Facility: [facility] Address: [address] [place], [place] [address] Performed By: #### 5 7021-8 ####[facility]ORATORYCLIA [id number] [address] [place] Platelets (Bld) [#/Vol] 391 10*3/uL Normal 150-400 [facility] Comment on above: Order Comment: Speci men Type: BLOOD SPECIMENOrdering Facility: [facility] Address: [address] [place] [address] Performed By: #### 5 7021-8 ####[facility]ORATORYCLIA [id number] [place] [address] [place] RBC (Bld) [#/Vol] 3.36 10*6/uL Low 4.20-6.00 [facility] Comment on above: Order Comment: Speci men Type: BLOOD SPECIMENOrdering Facility: [facility] Address: [address] [place], [place] [id number] Performed By: #### 5 7021-8 ####[facility]ORATORYCLIA [id number] [place] [address] [place] WBC (Bld) [#/Vol] 9.00 10*3/uL Normal 3.70-11.00 [facility] Comment on above: Order Comment: Speci men Type: BLOOD SPECIMENOrdering Facility: [facility] Address: [address] [place] [address] Performed By: #### 5 7021-8 ####[facility]ORATORYCLIA [id number] [address] CONSULT PROGon 07-16-2021 CONSULT PROG Normal [facility] CONSULT PROG Normal [facility] Magnesium SerPl-mCncon 07-16 Magnesium [Mass/Vol] 2.3 mg/dL Normal 1.7-2.3 [facility] Comment on above: Order Comment: Speci men Type: BLOOD SPECIMENOrdering Facility: [facility] Address: [address] [place] [address] Performed By: #### 2 777-1, 35125-0, ####[facility]ORATORYCLIA [id number] [address] NURSING PROGon 07-16-2021 NURSING PROG Normal [facility] Phosphate SerPl-mCncon 07-16 Phosphate [Mass/Vol] 3.6 mg/dL Normal 2.7-4.8 [facility] Comment on above: Order Comment: Speci men Type: BLOOD SPECIMENOrdering Facility: [facility] Address: [address] [place] [address] Performed By: #### 2 777-1, 00731-0, ####[facility]ORATORYCLIA [id number] [address] Vancomycin random [Mass/Vol] on 07-16-2021 Vancomycin [Mass/Vol] 16.9 ug/mL Normal 10.0-20.0 [facility] Comment on above: Order Comment: Speci men Type: BLOOD SPECIMENOrdering Facility: [facility] Address: [address] [place] [address] Result Comment: Refe rence ranges and high/low indicator flags are provided as general guidelines only. The treating physician must determine appropriate target levels/dosing based on the specific clinical situation. Performed By: #### 4 091-5 ####[facility]ORATORYCLIA [id number] [address] [place] aPTT PPPon 07-16-2021 aPTT Coag (PPP) [Time] 57.2 s High 23.0-32.4 [facility] Comment on above: Order Comment: Speci men Type: BLOOD SPECIMENOrdering Facility: [facility] Address: [address] [place] [address] Performed By: #### 1 4979-9 ####[facility]ORATORYCLIA [id number] [place] [id number] [place] ALLIED HEALTHon 07-15-2021 ALLIED HEALTH Normal [facility] Basic metabolic 2000 panelon 07-15-2021 Anion gap [Moles/Vol] 11 mmol/L Normal 9-18 [facility] Comment on above: Order Comment: Speci men Type: BLOOD SPECIMENOrdering Facility: [facility] Address: [address] [place] [address] Performed By: #### 2 4321-2, , 2776-05 ####[facility]ORATORYCLIA [id number] [place] [address] [place] Calcium [Mass/Vol] 8.8 mg/dL Normal 8.5-10.2 [facility] Comment on above: Order Comment: Speci men Type: BLOOD SPECIMENOrdering Facility: [facility] Address: [address] [place] [address] Performed By: #### 2 4321-2, , 2776-05 ####[facility]ORATORYCLIA [id number] [place] [address] [place] Chloride [Moles/Vol] 101 mmol/L Normal 97-105 [facility] Comment on above: Order Comment: Speci men Type: BLOOD SPECIMENOrdering Facility: [facility] Address: [address] [place] [address] Performed By: #### 2 4321-2, , 2776-05 ####[facility]ORATORYCLIA [id number] [place] [address] [place] CO2 [Moles/Vol] 31 mmol/L High 22-30 [facility] Comment on above: Order Comment: Speci men Type: BLOOD SPECIMENOrdering Facility: [facility] Address: [address] [place] [address] Performed By: #### 2 4321-2, , 2776-05 ####[facility]ENTERCLIA [id number] [place] [address] [place] Creatinine [Mass/Vol] 0.76 mg/dL Normal 0.73-1.22 [facility] Comment on above: Order Comment: Speci men Type: BLOOD SPECIMENOrdering Facility: [facility] Address: [address] [place] [address] Performed By: #### 2 4321-2, , 2776-05 ####[facility] [id number] [address] [place] ESTIMATED GLOMERULAR FILTRATION RATE 97 mL/min/1.73m??? Normal >=60 [facility] Comment on above: Order Comment: Speccara men Type: BLOOD SPECIMENOrdering Facility: [facility] Address: [address] [place] [address] Result Comment: Luzmaria mated Glomerular Filtration Rate [...] #### 2 4321-2, , 2776-05 ####[facility] LABORATORYIA [id number] [place] [address] [place] Glucose [Mass/Vol] 115 mg/dL High 74-99 [facility] Comment on above: Order Comment: Johni francia Type: BLOOD SPECIMENOrdering Facility: [facility] Address: [address] [place] [address] Result Comment: The [place] [employer] (ADA) provides guidance for cutoff [...] Standards of Medical Care in Diabetes 2016, [place] [employer]. Diabetes Care. 2016.39(Suppl 1). Performed By: #### 2 4321-2, , 2776-05 ####[facility]ORATORYCLIA [id number] [place] [address] [place] Potassium [Moles/Vol] 4.0 mmol/L Normal 3.7-5.1 [facility] Comment on above: Order Comment: Shira feldman Type: BLOOD SPECIMENOrdering Facility: [facility] Address: [address] [place] [address] Performed By: #### 2 4320-2, , 2776-05 ####[facility]ENTERCLIA [id number] [place] [address] [place] Sodium [Moles/Vol] 143 mmol/L Normal 136-144 [facility] Comment on above: Order Comment: Shira feldman Type: BLOOD SPECIMENOrdering Facility: [facility] Address: [address] [place] [address] Performed By: #### 2 4321-2, , 2776-05 ####[facility]ORATORYCLIA [id number] [place] [address] [place] Urea nitrogen [Mass/Vol] 17 mg/dL Normal 9-24 [facility] Comment on above: Order Comment: Shira feldman Type: BLOOD SPECIMENOrdering Facility: [facility] Address: [address] [address] Performed By: #### 2 4321-2, , 2776-05 ####[facility]ORATORYCLIA [id number] [address] [place] CASE MANAGEMon 07-15-2021 CASE MANAGEM Normal [facility] CBC panel Auto (Bld)on 07-15 Erythrocyte distribution width (RBC) [Ratio] 16.4 % High 11.5-15.0 [facility] Comment on above: Order Comment: Speci men Type: BLOOD SPECIMENOrdering Facility: [facility] Address: [address] [place] [address] Performed By: #### 5 8410-2 ####[facility]ORATORYCLIA [id number] [address] Hematocrit (Bld) [Volume fraction] 30.3 % Low 39.0-51.0 [facility] Comment on above: Order Comment: Speci men Type: BLOOD SPECIMENOrdering Facility: [facility] Address: [address] [place] [address] Performed By: #### 5 8410-2 ####[facility]ORATORYCLIA [id number] [address] Hemoglobin (Bld) [Mass/Vol] 9.2 g/dL Low 13.0-17.0 [facility] Comment on above: Order Comment: Speci men Type: BLOOD SPECIMENOrdering Facility: [facility] Address: [address] [place] [address] Performed By: #### 5 8410-2 ####[facility]ORATORYCLIA [id number] [address] [place] MCH (RBC) [Entitic mass] 28.3 pg Normal 26.0-34.0 [facility] Comment on above: Order Comment: Speci men Type: BLOOD SPECIMENOrdering Facility: [facility] Address: [address] [place] [address] Performed By: #### 5 8410-2 ####[facility]ORATORYCLIA [id number] [address] [place] MCHC (RBC) [Mass/Vol] 30.4 g/dL Low 30.5-36.0 [facility] Comment on above: Order Comment: Speci men Type: BLOOD SPECIMENOrdering Facility: [facility] Address: [address] [place], [place] [id number] Performed By: #### 5 8410-2 ####[facility]ORATORYCLIA [id number] [address] [place] MCV (RBC) [Entitic vol] 93.2 fL Normal 80.0-100.0 [facility] Comment on above: Order Comment: Speci men Type: BLOOD SPECIMENOrdering Facility: [facility] Address: [address] [place], [place] [id number] Performed By: #### 5 8410-2 ####[facility]ORATORYCLIA [id number] [address] [place] Nucleated RBC (Bld) [#/Vol] 10*3/uL Normal <0.01 [facility] Comment on above: Order Comment: Speci men Type: BLOOD SPECIMENOrdering Facility: [facility] Address: [address] [place] [address] Performed By: #### 5 8410-2 ####[facility]ORATORYCLIA [id number] [address] [place] Platelet mean volume (Bld) [Entitic vol] 9.9 fL Normal 9.0-12.7 [facility] Comment on above: Order Comment: Speci men Type: BLOOD SPECIMENOrdering Facility: [facility] Address: [address] [place] [id number] Performed By: #### 5 8410-2 ####[facility]ORATORYCLIA [id number] [address] [place] Platelets (Bld) [#/Vol] 381 10*3/uL Normal 150-400 [facility] Comment on above: Order Comment: Speci men Type: BLOOD SPECIMENOrdering Facility: [facility] Address: [address] [place], [place] [id number] Performed By: #### 5 8410-2 ####[facility] LABORATORYCLIA [id number] [place] [address] [place] RBC (Bld) [#/Vol] 3.25 10*6/uL Low 4.20-6.00 [facility] Comment on above: Order Comment: Speci men Type: BLOOD SPECIMENOrdering Facility: [facility] Address: [address] [place] [address] Performed By: #### 5 8410-2 ####[facility] LABORATORYCLIA [id number] [address] [place] WBC (Bld) [#/Vol] 8.80 10*3/uL Normal 3.70-11.00 [facility] Comment on above: Order Comment: Speci men Type: BLOOD SPECIMENOrdering Facility: [facility] Address: [address] [place] [address] Performed By: #### 5 8410-2 ####[facility]ORATORYCLIA [id number] [address] [place] Magnesium SerPl-mCncon 07-15 Magnesium [Mass/Vol] 2.2 mg/dL Normal 1.7-2.3 [facility] Comment on above: Order Comment: Speci men Type: BLOOD SPECIMENOrdering Facility: [facility] Address: [address] [place] [address] Performed By: #### 2 4321-2, 05853-5, 2777-1 ####[facility]ORATORYCLIA [id number] [place] [address] [place] NURSING PROGon 07-15-2021 NURSING PROG Normal [facility] NURSING PROG Normal [facility] NURSING PROG Normal [facility] NUTRITIONon 07-15-2021 NUTRITION Normal [facility] Phosphate SerPl-mCncon 07-15 Phosphate [Mass/Vol] 3.4 mg/dL Normal 2.7-4.8 [facility] Comment on above: Order Comment: Speci men Type: BLOOD SPECIMENOrdering Facility: [facility] Address: [address] [place] [address] Performed By: #### 2 4321-2, 78918-0, 2777-1 ####[facility]ORATORYCLIA [id number] [place] [address] [facility] THERAPY NTon 07-15-2021 THERAPY NT Normal [facility] US DVT UPPER LTon 07-15-2021 US DVT UPPER LT Normal [facility] XR CHEST 1V FRONTALon 2021 XR CHEST 1V FRONTAL Normal [facility] aPTT PPPon 07-15-2021 aPTT Coag (PPP) [Time] 59.9 s High 23.0-32.4 [facility] Comment on above: Order Comment: Speci men Type: BLOOD SPECIMENOrdering Facility: [facility] Address: [address] [place] [address] Performed By: #### 1 4979-9 ####[facility]ORATORYCLIA [id number] [place] [address] [place] Basic metabolic 2000 panelon 07-14-2021 Anion gap [Moles/Vol] 9 mmol/L Normal 9-18 [facility] Comment on above: Order Comment: Speci men Type: BLOOD SPECIMENOrdering Facility: [facility] Address: [address] [place] [address] Performed By: #### 1 9123-9, 2777-1, 37146-7 ####[facility]ORATORYCLIA [id number] [place] [address] [place] Calcium [Mass/Vol] 8.5 mg/dL Normal 8.5-10.2 [facility] Comment on above: Order Comment: Speci men Type: BLOOD SPECIMENOrdering Facility: [facility] Address: [address] [place] [address] Performed By: #### 1 9123-9, 2777-1, 94543-8 ####[facility]ORATORYCLIA [id number] [place] [address] [place] Chloride [Moles/Vol] 99 mmol/L Normal 97-105 [facility] Comment on above: Order Comment: Speci men Type: BLOOD SPECIMENOrdering Facility: [facility] Address: [address] [place] [address] Performed By: #### 1 9123-9, 2777, ####[facility]ORATORYCLIA [id number] [address] CO2 [Moles/Vol] 31 mmol/L High 22-30 [facility] Comment on above: Order Comment: Speci men Type: BLOOD SPECIMENOrdering Facility: [facility] Address: [address] [place] [address] Performed By: #### 1 9123-9, 27711-04, ####[facility]ORATORYCLIA [id number] [address] Creatinine [Mass/Vol] 0.74 mg/dL Normal 0.73-1.22 [facility] Comment on above: Order Comment: Speci men Type: BLOOD SPECIMENOrdering Facility: [facility] Address: [address] [place] [address] Performed By: #### 1 9123-9, 2776-05, ####[facility]ENTERCLIA [id number] [address] ESTIMATED GLOMERULAR FILTRATION RATE 98 mL/min/1.73m??? Normal >=60 [facility] Comment on above: Order Comment: Speci men Type: BLOOD SPECIMENOrdering Facility: [facility] Address: [address] [place] [address] Result Comment: Luzmaria mated Glomerular Filtration Rate [...] GFR. Performed By: #### 1 9123-9, 27711-04, 89281-9 ####[facility]ORATORYCLIA [id number] [place] [address] [place] Glucose [Mass/Vol] 117 mg/dL High 74-99 [facility] Comment on above: Order Comment: Speci men Type: BLOOD SPECIMENOrdering Facility: [facility] Address: [address] [place] [address] Result Comment: The [place] [employer] (ADA) provides guidance for cutoff [...] Standards of Medical Care in Diabetes 2016, [place] [employer]. Diabetes Care. 2016.39(Suppl 1). Performed By: #### 1 9123-9, 2777, 80886-9 ####[facility]ORATORYCLIA [id number] [place] [address] [place] Potassium [Moles/Vol] 3.7 mmol/L Normal 3.7-5.1 [facility] Comment on above: Order Comment: Speci men Type: BLOOD SPECIMENOrdering Facility: [facility] Address: [address] [place], [place] [id number] Performed By: #### 1 9123-9, 27711-04, 74421-1 ####[facility]ORATORYCLIA [id number] [place] [address] [place] Sodium [Moles/Vol] 139 mmol/L Normal 136-144 [facility] Comment on above: Order Comment: Speci men Type: BLOOD SPECIMENOrdering Facility: [facility] Address: [address] [place] [address] Performed By: #### 1 9123-9, 27711-04, 48475-9 ####[facility]ORATORYCLIA [id number] [address] [place] Urea nitrogen [Mass/Vol] 16 mg/dL Normal 9-24 [facility] Comment on above: Order Comment: Speci men Type: BLOOD SPECIMENOrdering Facility: [facility] Address: [address] [place] [address] Performed By: #### 1 9123-9, 2777-1, 71526-7 ####[facility] LABORATORYCLIA [id number] [address] CBC panel Auto (Bld)on 07-14 Erythrocyte distribution width (RBC) [Ratio] 16.2 % High 11.5-15.0 [facility] Comment on above: Order Comment: Speci men Type: BLOOD SPECIMENOrdering Facility: [facility] Address: [address] [place] [address] Performed By: #### 5 8410-2 ####[facility]ORATORYCLIA [id number] [address] STATES OF [facility] Hematocrit (Bld) [Volume fraction] 29.7 % Low 39.0-51.0 [facility] Comment on above: Order Comment: Speci men Type: BLOOD SPECIMENOrdering Facility: [facility] Address: [address] [place] [address] Performed By: #### 5 8410-2 ####[facility]ORATORYCLIA [id number] [address] [place] Hemoglobin (Bld) [Mass/Vol] 8.8 g/dL Low 13.0-17.0 [facility] Comment on above: Order Comment: Speci men Type: BLOOD SPECIMENOrdering Facility: [facility] Address: [address] [place] [address] Performed By: #### 5 8410-2 ####[facility]ORATORYCLIA [id number] [address] [place] MCH (RBC) [Entitic mass] 27.5 pg Normal 26.0-34.0 [facility] Comment on above: Order Comment: Speci men Type: BLOOD SPECIMENOrdering Facility: [facility] Address: [address] [place] [address] Performed By: #### 5 8410-2 ####[facility]ORATORYCLIA [id number] [address] MCHC (RBC) [Mass/Vol] 29.6 g/dL Low 30.5-36.0 [facility] Comment on above: Order Comment: Speci men Type: BLOOD SPECIMENOrdering Facility: [facility] Address: [address] [place] [address] Performed By: #### 5 8410-2 ####[facility]ORATORYCLIA [id number] [address] [place] MCV (RBC) [Entitic vol] 92.8 fL Normal 80.0-100.0 [facility] Comment on above: Order Comment: Speci men Type: BLOOD SPECIMENOrdering Facility: [facility] Address: [address] [place] [address] Performed By: #### 5 8410-2 ####[facility]ORATORYCLIA [id number] [address] Nucleated RBC (Bld) [#/Vol] 10*3/uL Normal <0.01 [facility] Comment on above: Order Comment: Speci men Type: BLOOD SPECIMENOrdering Facility: [facility] Address: [address] [place] [address] Performed By: #### 5 8410-2 ####[facility]ORATORYCLIA [id number] [address] Platelet mean volume (Bld) [Entitic vol] 9.6 fL Normal 9.0-12.7 [facility] Comment on above: Order Comment: Speci men Type: BLOOD SPECIMENOrdering Facility: [facility] Address: [address] [place] [address] Performed By: #### 5 8410-2 ####[facility]ORATORYCLIA [id number] [place] [address] [place] Platelets (Bld) [#/Vol] 354 10*3/uL Normal 150-400 [facility] Comment on above: Order Comment: Speci men Type: BLOOD SPECIMENOrdering Facility: [facility] Address: [address] [place] [address] Performed By: #### 5 8410-2 ####[facility]ORATORYCLIA [id number] [place] [address] [place] RBC (Bld) [#/Vol] 3.20 10*6/uL Low 4.20-6.00 [facility] Comment on above: Order Comment: Speci men Type: BLOOD SPECIMENOrdering Facility: [facility] Address: [address] [place] [address] Performed By: #### 5 8410-2 ####[facility]ORATORYCLIA [id number] [address] STATES OF [facility] WBC (Bld) [#/Vol] 9.41 10*3/uL Normal 3.70-11.00 [facility] Comment on above: Order Comment: Speci men Type: BLOOD SPECIMENOrdering Facility: [facility] Address: [address] [place] [address] Performed By: #### 5 8410-2 ####[facility]ORATORYCLIA [id number] [address] [place] CONSULT PROGon 07-14-2021 CONSULT PROG Normal [facility] Magnesium SerPl-mCncon 07-14 Magnesium [Mass/Vol] 2.2 mg/dL Normal 1.7-2.3 [facility] Comment on above: Order Comment: Speci men Type: BLOOD SPECIMENOrdering Facility: [facility] Address: [address] [place] [address] Performed By: #### 1 9123-9, 2777-1, 58217-8 ####[facility]ORATORYCLIA [id number] [address] [place] NURSING PROGon 07-14-2021 NURSING PROG Normal [facility] Phosphate SerPl-mCncon 07-14 Phosphate [Mass/Vol] 3.6 mg/dL Normal 2.7-4.8 [facility] Comment on above: Order Comment: Speci men Type: BLOOD SPECIMENOrdering Facility: [facility] Address: [address] [place] [address] Performed By: #### 1 9123-9, 2777-1, 68497-0 ####[facility]ORATORYCLIA [id number] [address] [place] aPTT PPPon 07-14-2021 aPTT Coag (PPP) [Time] 62.9 s High 23.0-32.4 [facility] Comment on above: Order Comment: Speci men Type: BLOOD SPECIMENOrdering Facility: [facility] Address: [address] [place] [address] Performed By: #### 1 4979-9 ####[facility]ORATORYCLIA [id number] [address] [place] aPTT Coag (PPP) [Time] 55.2 s High 23.0-32.4 [facility] Comment on above: Order Comment: Speci men Type: BLOOD SPECIMENOrdering Facility: [facility] Address: [address] [place] [address] Performed By: #### 1 4979-9 ####[facility]ORATORYCLIA [id number] [place] [address] [place] Basic metabolic 2000 panelon 07-13-2021 Anion gap [Moles/Vol] 10 mmol/L Normal 9-18 [facility] Comment on above: Order Comment: Speci men Type: BLOOD SPECIMENOrdering Facility: [facility] Address: [address] [place] [address] Performed By: #### 1 9123-9, 2777-1, 77805-7 ####[facility]ORATORYCLIA [id number] [address] STATES OF [facility] Calcium [Mass/Vol] 8.5 mg/dL Normal 8.5-10.2 [facility] Comment on above: Order Comment: Speci men Type: BLOOD SPECIMENOrdering Facility: [facility] Address: [address] [place] [address] Performed By: #### 1 9123-9, 2777-1, 76643-5 ####[facility]ORATORYCLIA [id number] [place] [address] [place] Chloride [Moles/Vol] 98 mmol/L Normal 97-105 [facility] Comment on above: Order Comment: Speci men Type: BLOOD SPECIMENOrdering Facility: [facility] Address: [address] [place] [address] Performed By: #### 1 9123-9, 27711-04, 58587-9 ####[facility]ORATORYCLIA [id number] [address] STATES OF [facility] CO2 [Moles/Vol] 32 mmol/L High 22-30 [facility] Comment on above: Order Comment: Speci men Type: BLOOD SPECIMENOrdering Facility: [facility] Address: [address] [place] [address] Performed By: #### 1 9123-9, 27711-04, 43066-2 ####[facility]ORATORYCLIA [id number] [address] [place] Creatinine [Mass/Vol] 0.75 mg/dL Normal 0.73-1.22 [facility] Comment on above: Order Comment: Speci men Type: BLOOD SPECIMENOrdering Facility: [facility] Address: [address] [place] [address] Performed By: #### 1 9123-9, 2777, 62366-7 ####[facility]ORATORYCLIA [id number] [address] [place] ESTIMATED GLOMERULAR FILTRATION RATE 98 mL/min/1.73m??? Normal >=60 [facility] Comment on above: Order Comment: Speci men Type: BLOOD SPECIMENOrdering Facility: [facility] Address: [address] [id number] Result Comment: Luzmaria mated Glomerular Filtration Rate [...] GFR. Performed By: #### 1 9123-9, 2777-1, 06769-1 ####[facility]ORATORYCLIA [id number] [place] [address] [place] Glucose [Mass/Vol] 118 mg/dL High 74-99 [facility] Comment on above: Order Comment: Shira feldman Type: BLOOD SPECIMENOrdering Facility: [facility] Address: [address] [place] [address] Result Comment: The [place] [employer] (ADA) provides guidance for cutoff [...] Standards of Medical Care in Diabetes 2016, [place] [employer]. Diabetes Care. 2016.39(Suppl 1). Performed By: #### 1 9123-9, 2777-1, 22433-8 ####[facility]ORATORYCLIA [id number] [place] [address] [place] Potassium [Moles/Vol] 3.6 mmol/L Low 3.7-5.1 [facility] Comment on above: Order Comment: Shira feldman Type: BLOOD SPECIMENOrdering Facility: [facility] Address: [address] [phone] Performed By: #### 1 9123-9, 2777-1, 99946-5 ####[facility]ORATORYCLIA [id number] [address] Sodium [Moles/Vol] 140 mmol/L Normal 136-144 [facility] Comment on above: Order Comment: Speci men Type: BLOOD SPECIMENOrdering Facility: [facility] Address: [address] [place] [address] Performed By: #### 1 9123-9, 2777-, 27347-0 ####[facility]ORATORYCLIA [id number] [address] STATES [facility] Urea nitrogen [Mass/Vol] 15 mg/dL Normal 9-24 [facility] Comment on above: Order Comment: Speci men Type: BLOOD SPECIMENOrdering Facility: [facility] Address: [address] [place] [address] Performed By: #### 1 9123-9, 2777, 71215-3 ####[facility]ATORYCLIA [id number] [address] CASE MANAGEMon 07-13-2021 CASE MANAGEM Normal [facility] CBC panel Auto (Bld)on 07-13 Erythrocyte distribution width (RBC) [Ratio] 16.2 % High 11.5-15.0 [facility] Comment on above: Order Comment: Speci men Type: BLOOD SPECIMENOrdering Facility: [facility] Address: [address] [place] [address] Performed By: #### 5 8410-2 ####[facility]ATORYCLIA [id number] [address] Hematocrit (Bld) [Volume fraction] 29.5 % Low 39.0-51.0 [facility] Comment on above: Order Comment: Speci men Type: BLOOD SPECIMENOrdering Facility: [facility] Address: [address] [place] [address] Performed By: #### 5 8410-2 ####[facility]ORATORYCLIA [id number] [address] STATES OF [facility] Hemoglobin (Bld) [Mass/Vol] 8.9 g/dL Low 13.0-17.0 [facility] Comment on above: Order Comment: Speci men Type: BLOOD SPECIMENOrdering Facility: [facility] Address: [address] [place] [address] Performed By: #### 5 8410-2 ####[facility]ATORYCLIA [id number] [address] MCH (RBC) [Entitic mass] 27.8 pg Normal 26.0-34.0 [facility] Comment on above: Order Comment: Speci men Type: BLOOD SPECIMENOrdering Facility: [facility] Address: [address] [place] [address] Performed By: #### 5 8410-2 ####[facility]ATORYCLIA [id number] [address] MCHC (RBC) [Mass/Vol] 30.2 g/dL Low 30.5-36.0 [facility] Comment on above: Order Comment: Speci men Type: BLOOD SPECIMENOrdering Facility: [facility] Address: [address] [place] [address] Performed By: #### 5 8410-2 ####[facility]ATORYCLIA [id number] [address] MCV (RBC) [Entitic vol] 92.2 fL Normal 80.0-100.0 [facility] Comment on above: Order Comment: Speci men Type: BLOOD SPECIMENOrdering Facility: [facility] Address: [address] [place] [address] Performed By: #### 5 8410-2 ####[facility]ATORYCLIA [id number] [address] Nucleated RBC (Bld) [#/Vol] 10*3/uL Normal <0.01 [facility] Comment on above: Order Comment: Speci men Type: BLOOD SPECIMENOrdering Facility: [facility] Address: [address] [place] [address] Performed By: #### 5 8410-2 ####[facility]ATORYCLIA [id number] [address] [place] Platelet mean volume (Bld) [Entitic vol] 9.8 fL Normal 9.0-12.7 [facility] Comment on above: Order Comment: Speci men Type: BLOOD SPECIMENOrdering Facility: [facility] Address: [address] [place] [address] Performed By: #### 5 8410-2 ####[facility]ATORYCLIA [id number] [address] [place] Platelets (Bld) [#/Vol] 356 10*3/uL Normal 150-400 [facility] Comment on above: Order Comment: Speci men Type: BLOOD SPECIMENOrdering Facility: [facility] Address: [address] [place] [address] Performed By: #### 5 8410-2 ####[facility]ORATORYCLIA [id number] [place] [address] [place] RBC (Bld) [#/Vol] 3.20 10*6/uL Low 4.20-6.00 [facility] Comment on above: Order Comment: Speci men Type: BLOOD SPECIMENOrdering Facility: [facility] Address: [address] [place], [place] [phone] Performed By: #### 5 8410-2 ####[facility]ORATORYCLIA [id number] [address] [place] WBC (Bld) [#/Vol] 9.20 10*3/uL Normal 3.70-11.00 [facility] Comment on above: Order Comment: Speci men Type: BLOOD SPECIMENOrdering Facility: [facility] Address: [address] [place] [address] Performed By: #### 5 8410-2 ####[facility]ORATORYCLIA [id number] [address] [place] CONSULT PROGon 07-13-2021 CONSULT PROG Normal [facility] CONSULT PROG Normal [facility] CONSULT PROG Normal [facility] Magnesium SerPl-mCncon 07-13 Magnesium [Mass/Vol] 2.1 mg/dL Normal 1.7-2.3 [facility] Comment on above: Order Comment: Speci men Type: BLOOD SPECIMENOrdering Facility: [facility] Address: [address] [place] [address] Performed By: #### 1 9123-9, 2777-1, 15762-4 ####[facility]ATORYCLIA [id number] [address] Phosphate SerPl-mCncon 07-13 Phosphate [Mass/Vol] 3.7 mg/dL Normal 2.7-4.8 [facility] Comment on above: Order Comment: Speci men Type: BLOOD SPECIMENOrdering Facility: [facility] Address: [address] [place] [address] Performed By: #### 1 9123-9, 2777-1, 47194-4 ####[facility]CLIA [id number] [address] THERAPY NTon 07-13-2021 THERAPY NT Normal [facility] THERAPY NT Normal [facility] Vancomycin random [Mass/Vol] on 07-13-2021 Vancomycin [Mass/Vol] 31.7 ug/mL High 10.0-20.0 [facility] Comment on above: Order Comment: Speci men Type: BLOOD SPECIMENOrdering Facility: [facility] Address: [address] [place] [address] Result Comment: Refe rence ranges and high/low indicator flags are provided as general guidelines only. The treating physician must determine appropriate target levels/dosing based on the specific clinical situation. Performed By: #### 4 091-5 ####[facility]ORATORYCLIA [id number] [address] [place] aPTT PPPon 07-13-2021 aPTT Coag (PPP) [Time] 47.3 s High 23.0-32.4 [facility] Comment on above: Order Comment: Speci men Type: BLOOD SPECIMENOrdering Facility: [facility] Address: [address] [place] [address] Performed By: #### 1 4979-9 ####[facility]ATORYCLIA [id number] [address] aPTT Coag (PPP) [Time] 51.2 s High 23.0-32.4 [facility] Comment on above: Order Comment: Speci men Type: BLOOD SPECIMENOrdering Facility: [facility] Address: [address] [place] [address] Performed By: #### 1 4979-9 ####[facility] LABORATORYCLIA [id number] [address] aPTT Coag (PPP) [Time] 47.5 s High 23.0-32.4 [facility] Comment on above: Order Comment: Speci men Type: BLOOD SPECIMENOrdering Facility: [facility] Address: [address] [place] [address] Performed By: #### 1 4979-9 ####[facility] LABORATORYCLIA [id number] [address] STATES OF [facility] Basic metabolic 2000 panelon 07-12-2021 Anion gap [Moles/Vol] 7 mmol/L Low 9-18 [facility] Comment on above: Order Comment: Speci men Type: BLOOD SPECIMENOrdering Facility: [facility] Address: [address] [place] [address] Performed By: #### 1 9123-9, 2777-1, 91699-3 ####[facility] [facility] LABORATORYCLIA [id number] [address] STATES OF [facility] Calcium [Mass/Vol] 8.3 mg/dL Low 8.5-10.2 [facility] Comment on above: Order Comment: Speci men Type: BLOOD SPECIMENOrdering Facility: [facility] Address: [address] [place] [address] Performed By: #### 1 9123-9, 27711-04, 42277-1 ####[facility]ORATORYCLIA [id number] [place] [address] [place] Chloride [Moles/Vol] 101 mmol/L Normal 97-105 [facility] Comment on above: Order Comment: Speci men Type: BLOOD SPECIMENOrdering Facility: [facility] Address: [address] [place] [address] Performed By: #### 1 9123-9, 2776-05, 22787-4 ####[facility] LABORATORYCLIA [id number] [address] [place] CO2 [Moles/Vol] 32 mmol/L High 22-30 [facility] Comment on above: Order Comment: Speci men Type: BLOOD SPECIMENOrdering Facility: [facility] Address: [address] [place] [address] Performed By: #### 1 9123-9, 2776-05, 45684-7 ####[facility] LABORATORYCLIA [id number] [address] [place] Creatinine [Mass/Vol] 0.70 mg/dL Low 0.73-1.22 [facility] Comment on above: Order Comment: Speci men Type: BLOOD SPECIMENOrdering Facility: [facility] Address: [address] [place] [address] Performed By: #### 1 9123-9, 27711-04, 10283-1 ####[facility] LABORATORYCLIA [id number] [address] [place] ESTIMATED GLOMERULAR FILTRATION RATE 100 mL/min/1.73m??? Normal >=60 [facility] Comment on above: Order Comment: Speci men Type: BLOOD SPECIMENOrdering Facility: [facility] Address: [address] [place] [address] Result Comment: Luzmaria mated Glomerular Filtration Rate [...] GFR. Performed By: #### 1 9123-9, 2777-1, 21248-2 ####[facility] LABORATORYCLIA [id number] [place] [address] [place] Glucose [Mass/Vol] 104 mg/dL High 74-99 [facility] Comment on above: Order Comment: Shira feldman Type: BLOOD SPECIMENOrdering Facility: [facility] Address: [address] [place] [address] Result Comment: The [place] [employer] (ADA) provides guidance for cutoff [...] Standards of Medical Care in Diabetes 2016, [place] [employer]. Diabetes Care. 2016.39(Suppl 1). Performed By: #### 1 9123-9, 2777-, 54232-8 ####[facility] LABORATORYIA [id number] [place] [address] [place] Potassium [Moles/Vol] 3.7 mmol/L Normal 3.7-5.1 [facility] Comment on above: Order Comment: Shira feldman Type: BLOOD SPECIMENOrdering Facility: [facility] Address: [address] [place] [address] Performed By: #### 1 9123-9, 2777-, 30644-6 ####[facility] LABORATORYCLIA [id number] [address] STATES [facility] Sodium [Moles/Vol] 140 mmol/L Normal 136-144 [facility] Comment on above: Order Comment: Speci men Type: BLOOD SPECIMENOrdering Facility: [facility] Address: [address] [place] [address] Performed By: #### 1 9123-9, 2777-1, 70007-1 ####[facility] LABORATORYCLIA [id number] [address] STATES OF [facility] Urea nitrogen [Mass/Vol] 12 mg/dL Normal 9-24 [facility] Comment on above: Order Comment: Speci men Type: BLOOD SPECIMENOrdering Facility: [facility] Address: [address] [place] [address] Performed By: #### 1 9123-9, 2777-1, 81987-5 ####[facility] LABORATORYCLIA [id number] [address] CBC panel Auto (Bld)on 07-12 Erythrocyte distribution width (RBC) [Ratio] 16.1 % High 11.5-15.0 [facility] Comment on above: Order Comment: Speci men Type: BLOOD SPECIMENOrdering Facility: [facility] Address: [address] [place] [address] Performed By: #### 5 8410-2 ####[facility] LABORATORYCLIA [id number] [address] [place] Hematocrit (Bld) [Volume fraction] 28.2 % Low 39.0-51.0 [facility] Comment on above: Order Comment: Speci men Type: BLOOD SPECIMENOrdering Facility: [facility] Address: [address] [place] [address] Performed By: #### 5 8410-2 ####[facility] LABORATORYCLIA [id number] [address] [place] Hemoglobin (Bld) [Mass/Vol] 8.5 g/dL Low 13.0-17.0 [facility] Comment on above: Order Comment: Speci men Type: BLOOD SPECIMENOrdering Facility: [facility] Address: [address] [place] [address] Performed By: #### 5 8410-2 ####[facility] LABORATORYCLIA [id number] [address] MCH (RBC) [Entitic mass] 26.8 pg Normal 26.0-34.0 [facility] Comment on above: Order Comment: Speci men Type: BLOOD SPECIMENOrdering Facility: [facility] Address: [address] [place] [address] Performed By: #### 5 8410-2 ####[facility] LABORATORYCLIA [id number] [address] MCHC (RBC) [Mass/Vol] 30.1 g/dL Low 30.5-36.0 [facility] Comment on above: Order Comment: Speci men Type: BLOOD SPECIMENOrdering Facility: [facility] Address: [address] [place] [address] Performed By: #### 5 8410-2 ####[facility] LABORATORYCLIA [id number] [address] MCV (RBC) [Entitic vol] 89.0 fL Normal 80.0-100.0 [facility] Comment on above: Order Comment: Speci men Type: BLOOD SPECIMENOrdering Facility: [facility] Address: [address] [place] [address] Performed By: #### 5 8410-2 ####[facility] LABORATORYCLIA [id number] [address] Nucleated RBC (Bld) [#/Vol] 10*3/uL Normal <0.01 [facility] Comment on above: Order Comment: Speci men Type: BLOOD SPECIMENOrdering Facility: [facility] Address: [address] [place] [address] Performed By: #### 5 8410-2 ####[facility] LABORATORYCLIA [id number] [address] [place] Platelet mean volume (Bld) [Entitic vol] 9.6 fL Normal 9.0-12.7 [facility] Comment on above: Order Comment: Speci men Type: BLOOD SPECIMENOrdering Facility: [facility] Address: [address] [place] [address] Performed By: #### 5 8410-2 ####[facility] LABORATORYCLIA [id number] [place] [address] [place] Platelets (Bld) [#/Vol] 340 10*3/uL Normal 150-400 [facility] Comment on above: Order Comment: Speci men Type: BLOOD SPECIMENOrdering Facility: [facility] Address: [address] [place] [address] Performed By: #### 5 8410-2 ####[facility] LABORATORYCLIA [id number] [place] [address] [place] RBC (Bld) [#/Vol] 3.17 10*6/uL Low 4.20-6.00 [facility] Comment on above: Order Comment: Speci men Type: BLOOD SPECIMENOrdering Facility: [facility] Address: [address] [place] [address] Performed By: #### 5 8410-2 ####[facility] LABORATORYCLIA [id number] [place] [address] [place] WBC (Bld) [#/Vol] 8.66 10*3/uL Normal 3.70-11.00 [facility] Comment on above: Order Comment: Speci men Type: BLOOD SPECIMENOrdering Facility: [facility] Address: [address] [place] [address] Performed By: #### 5 8410-2 ####[facility] LABORATORYCLIA [id number] [address] [place] CONSULTon 07-12-2021 CONSULT Normal [facility] CONSULT PROGon 07-12-2021 CONSULT PROG Normal [facility] Magnesium SerPl-mCncon 07-12 Magnesium [Mass/Vol] 2.1 mg/dL Normal 1.7-2.3 [facility] Comment on above: Order Comment: Speci men Type: BLOOD SPECIMENOrdering Facility: [facility] Address: [address] [place] [address] Performed By: #### 1 9123-9, 2777-1, 48243-8 ####[facility] LABORATORYCLIA [id number] [address] OF [facility] NURSING PROGon 07-12-2021 NURSING PROG Normal [facility] Phosphate SerPl-mCncon 07-12 Phosphate [Mass/Vol] 3.1 mg/dL Normal 2.7-4.8 [facility] Comment on above: Order Comment: Speci men Type: BLOOD SPECIMENOrdering Facility: [facility] Address: [address] [place] [address] Performed By: #### 1 9123-9, 2777-1, 80671-2 ####[facility] LABORATORYCLIA [id number] [address] OF [facility] THERAPY NTon 07-12-2021 THERAPY NT Normal [facility] aPTT PPPon 07-12-2021 aPTT Coag (PPP) [Time] 49.5 s High 23.0-32.4 [facility] Comment on above: Order Comment: Speci men Type: BLOOD SPECIMENOrdering Facility: [facility] Address: [address] [place] [address] Performed By: #### 1 4979-9 ####[facility] LABORATORYCLIA [id number] [address] aPTT Coag (PPP) [Time] 68.0 s High 23.0-32.4 [facility] Comment on above: Order Comment: Speci men Type: BLOOD SPECIMENOrdering Facility: [facility] Address: [address] [place] [address] Performed By: #### 1 4979-9 ####[facility] LABORATORYCLIA [id number] [place] [address] [place] aPTT Coag (PPP) [Time] 80.0 s High 23.0-32.4 [facility] Comment on above: Order Comment: Speci men Type: BLOOD SPECIMENOrdering Facility: [facility] Address: [address] [place] [address] Performed By: #### 1 4979-9 ####[facility] LABORATORYCLIA [id number] [address] [place] CASE MGT INIT ASSESon 2021 CASE MGT INIT ASSES Normal [facility] CBC panel Auto (Bld)on 07-11 Erythrocyte distribution width (RBC) [Ratio] 16.3 % High 11.5-15.0 [facility] Comment on above: Order Comment: Speci men Type: BLOOD SPECIMENOrdering Facility: [facility] Address: [address] [place] [address] Performed By: #### 5 8410-2 ####[facility]ENTERCLIA [id number] [address] STATES [facility] Hematocrit (Bld) [Volume fraction] 28.3 % Low 39.0-51.0 [facility] Comment on above: Order Comment: Speci men Type: BLOOD SPECIMENOrdering Facility: [facility] Address: [address] [place] [address] Performed By: #### 5 8410-2 ####[facility] LABORATORYCLIA [id number] [address] [place] Hemoglobin (Bld) [Mass/Vol] 8.8 g/dL Low 13.0-17.0 [facility] Comment on above: Order Comment: Speci men Type: BLOOD SPECIMENOrdering Facility: [facility] Address: [address] [place] [address] Performed By: #### 5 8410-2 ####[facility] LABORATORYCLIA [id number] [address] [place] MCH (RBC) [Entitic mass] 27.4 pg Normal 26.0-34.0 [facility] Comment on above: Order Comment: Speci men Type: BLOOD SPECIMENOrdering Facility: [facility] Address: [address] [place] [address] Performed By: #### 5 8410-2 ####[facility] LABORATORYCLIA [id number] [place] [address] [place] MCHC (RBC) [Mass/Vol] 31.1 g/dL Normal 30.5-36.0 [facility] Comment on above: Order Comment: Speci men Type: BLOOD SPECIMENOrdering Facility: [facility] Address: [address] [place] [address] Performed By: #### 5 8410-2 ####[facility] LABORATORYCLIA [id number] [address] [place] MCV (RBC) [Entitic vol] 88.2 fL Normal 80.0-100.0 [facility] Comment on above: Order Comment: Speci men Type: BLOOD SPECIMENOrdering Facility: [facility] Address: [address] [place] [address] Performed By: #### 5 8410-2 ####[facility] LABORATORYCLIA [id number] [address] [place] Nucleated RBC (Bld) [#/Vol] 10*3/uL Normal <0.01 [facility] Comment on above: Order Comment: Speci men Type: BLOOD SPECIMENOrdering Facility: [facility] Address: [address] [place] [address] Performed By: #### 5 8410-2 ####[facility] LABORATORYCLIA [id number] [address] [place] Platelet mean volume (Bld) [Entitic vol] 9.7 fL Normal 9.0-12.7 [facility] Comment on above: Order Comment: Speci men Type: BLOOD SPECIMENOrdering Facility: [facility] Address: [address] [place] [address] Performed By: #### 5 8410-2 ####[facility] LABORATORYCLIA [id number] [address] Platelets (Bld) [#/Vol] 315 10*3/uL Normal 150-400 [facility] Comment on above: Order Comment: Speci men Type: BLOOD SPECIMENOrdering Facility: [facility] Address: [address] [place] [address] Performed By: #### 5 8410-2 ####[facility] LABORATORYCLIA [id number] [address] STATES OF [facility] RBC (Bld) [#/Vol] 3.21 10*6/uL Low 4.20-6.00 [facility] Comment on above: Order Comment: Speci men Type: BLOOD SPECIMENOrdering Facility: [facility] Address: [address] [place] [address] Performed By: #### 5 8410-2 ####[facility] LABORATORYCLIA [id number] [address] WBC (Bld) [#/Vol] 9.18 10*3/uL Normal 3.70-11.00 [facility] Comment on above: Order Comment: Speci men Type: BLOOD SPECIMENOrdering Facility: [facility] Address: [address] [place] [address] Performed By: #### 5 8410-2 ####[facility] LABORATORYCLIA [id number] [address] CONSULT PROGon 07-11-2021 CONSULT PROG Normal [facility] CT BRAIN WO IVCONon 07-12-19 CT BRAIN WO IVCON Normal [facility] Magnesium SerPl-mCncon 07-11 Magnesium [Mass/Vol] 2.1 mg/dL Normal 1.7-2.3 [facility] Comment on above: Order Comment: Speci men Type: BLOOD SPECIMENOrdering Facility: [facility] Address: [address] [place] [address] Performed By: #### 1 9123-9, 2777-1 ####[facility] LABORATORYCLIA [id number] [address] NURSING PROGon 07-11-2021 NURSING PROG Normal [facility] NURSING PROG Normal [facility] Phosphate SerPl-mCncon 07-11 Phosphate [Mass/Vol] 3.4 mg/dL Normal 2.7-4.8 [facility] Comment on above: Order Comment: Speci men Type: BLOOD SPECIMENOrdering Facility: [facility] Address: [address] [place] [address] Performed By: #### 1 9123-9, 2777-1 ####[facility] LABORATORYCLIA [id number] [address] THERAPY NTon 07-11-2021 THERAPY NT Normal [facility] Vancomycin random [Mass/Vol] on 07-11-2021 Vancomycin [Mass/Vol] 28.6 ug/mL High 10.0-20.0 [facility] Comment on above: Order Comment: Speci men Type: BLOOD SPECIMENOrdering Facility: [facility] Address: [address] [place] [address] Result Comment: Refe rence ranges and high/low indicator flags are provided as general guidelines only. The treating physician must determine appropriate target levels/dosing based on the specific clinical situation. Performed By: #### 4 091-5 ####[facility]ORATORYCLIA [id number] [address] aPTT PPPon 07-11-2021 aPTT Coag (PPP) [Time] 62.0 s High 23.0-32.4 [facility] Comment on above: Order Comment: Speci men Type: BLOOD SPECIMENOrdering Facility: [facility] Address: [address] [place] [address] Performed By: #### 1 4979-9 ####[facility] LABORATORYCLIA [id number] [address] aPTT Coag (PPP) [Time] 52.7 s High 23.0-32.4 [facility] Comment on above: Order Comment: Speci men Type: BLOOD SPECIMENOrdering Facility: [facility] Address: [address] [place] [address] Performed By: #### 1 4979-9 ####[facility] LABORATORYCLIA [id number] [place] [address] [place] aPTT Coag (PPP) [Time] 29.9 s Normal 23.0-32.4 [facility] Comment on above: Order Comment: Speci men Type: BLOOD SPECIMENOrdering Facility: [facility] Address: [address] [place] [address] Performed By: #### 1 4979-9 ####[facility] LABORATORYCLIA [id number] [place] [address] [place] Basic metabolic 2000 panelon 07-10-2021 Anion gap [Moles/Vol] 14 mmol/L Normal 9-18 [facility] Comment on above: Order Comment: Speci men Type: BLOOD SPECIMENOrdering Facility: [facility] Address: [address] [place] [address] Performed By: #### 1 9123-9, 2777-1, 58838-0 ####[facility]ENTERCLIA [id number] [place] [address] [place] Calcium [Mass/Vol] 8.5 mg/dL Normal 8.5-10.2 [facility] Comment on above: Order Comment: Speci men Type: BLOOD SPECIMENOrdering Facility: [facility] Address: [address] [place] [address] Performed By: #### 1 9123-9, 2777-1, 99893-6 ####[facility] LABORATORYCLIA [id number] [address] [place] Chloride [Moles/Vol] 100 mmol/L Normal 97-105 [facility] Comment on above: Order Comment: Speci men Type: BLOOD SPECIMENOrdering Facility: [facility] Address: [address] [place] [address] Performed By: #### 1 9123-9, 2777-1, 08043-0 ####[facility]ENTERCLIA [id number] [address] STATES OF [facility] CO2 [Moles/Vol] 27 mmol/L Normal 22-30 [facility] Comment on above: Order Comment: Speci men Type: BLOOD SPECIMENOrdering Facility: [facility] Address: [address] [place] [address] Performed By: #### 1 9123-9, 2777, 72012-2 ####[facility]ENTERCLIA [id number] [address] Creatinine [Mass/Vol] 0.66 mg/dL Low 0.73-1.22 [facility] Comment on above: Order Comment: Speci men Type: BLOOD SPECIMENOrdering Facility: [facility] Address: [address] [place] [address] Performed By: #### 1 9123-9, 2777, 04524-5 ####[facility] [id number] [address] ESTIMATED GLOMERULAR FILTRATION RATE 102 mL/min/1.73m??? Normal >=60 [facility] Comment on above: Order Comment: Speci men Type: BLOOD SPECIMENOrdering Facility: [facility] Address: [address] [place] [address] Result Comment: Luzmaria mated Glomerular Filtration Rate [...] GFR. Performed By: #### 1 9123-9, 2777-1, 50134-7 ####[facility]ORATORYCLIA [id number] [place] [address] [place] Glucose [Mass/Vol] 93 mg/dL Normal 74-99 [facility] Comment on above: Order Comment: Shira feldman Type: BLOOD SPECIMENOrdering Facility: [facility] Address: [address] [place], [place] [id number] Result Comment: The [place] [employer] (ADA) provides guidance for cutoff [...] Standards of Medical Care in Diabetes 2016, [place] [employer]. Diabetes Care. 2016.39(Suppl 1). Performed By: #### 1 9123-9, 2777-, 22164-4 ####[facility]ORATORYCLIA [id number] [place] [address] [place] Potassium [Moles/Vol] 3.5 mmol/L Low 3.7-5.1 [facility] Comment on above: Order Comment: Shira feldman Type: BLOOD SPECIMENOrdering Facility: [facility] Address: [address] [place], [place] [id number] Performed By: #### 1 9123-9, 2777-, 32884-6 ####[facility]ATORYCLIA [id number] [place] [address] [place] Sodium [Moles/Vol] 141 mmol/L Normal 136-144 [facility] Comment on above: Order Comment: Shira feldman Type: BLOOD SPECIMENOrdering Facility: [facility] Address: [address] [place], [place] [phone] Performed By: #### 1 9123-9, 2777-, 61546-1 ####[facility]ORATORYCLIA [id number] [place] [address] [place] Urea nitrogen [Mass/Vol] 11 mg/dL Normal 9-24 [facility] Comment on above: Order Comment: Speci men Type: BLOOD SPECIMENOrdering Facility: [facility] Address: [address] [place] [address] Performed By: #### 1 9123-9, 2777-1, 77229-5 ####[facility]ORATORYCLIA [id number] [address] STATES [facility] CBC panel Auto (Bld)on 07-10 Erythrocyte distribution width (RBC) [Ratio] 16.2 % High 11.5-15.0 [facility] Comment on above: Order Comment: Speci men Type: BLOOD SPECIMENOrdering Facility: [facility] Address: [address] [place] [address] Performed By: #### 5 8410-2 ####[facility]ORATORYCLIA [id number] [address] [place] [facility] Hematocrit (Bld) [Volume fraction] 30.6 % Low 39.0-51.0 [facility] Comment on above: Order Comment: Speci men Type: BLOOD SPECIMENOrdering Facility: [facility] Address: [address] [place] [address] Performed By: #### 5 8410-2 ####[facility]ORATORYCLIA [id number] [address] STATES OF [facility] Hemoglobin (Bld) [Mass/Vol] 9.6 g/dL Low 13.0-17.0 [facility] Comment on above: Order Comment: Speci men Type: BLOOD SPECIMENOrdering Facility: [facility] Address: [address] [place] [address] Performed By: #### 5 8410-2 ####[facility] LABORATORYCLIA [id number] [address] MCH (RBC) [Entitic mass] 28.3 pg Normal 26.0-34.0 [facility] Comment on above: Order Comment: Speci men Type: BLOOD SPECIMENOrdering Facility: [facility] Address: [address] [place] [address] Performed By: #### 5 8410-2 ####[facility] LABORATORYCLIA [id number] [address] MCHC (RBC) [Mass/Vol] 31.4 g/dL Normal 30.5-36.0 [facility] Comment on above: Order Comment: Speci men Type: BLOOD SPECIMENOrdering Facility: [facility] Address: [address] [place] [address] Performed By: #### 5 8410-2 ####[facility] LABORATORYCLIA [id number] [address] [place] MCV (RBC) [Entitic vol] 90.3 fL Normal 80.0-100.0 [facility] Comment on above: Order Comment: Speci men Type: BLOOD SPECIMENOrdering Facility: [facility] Address: [address] [place] [address] Performed By: #### 5 8410-2 ####[facility]ORATORYCLIA [id number] [address] OF [facility] Nucleated RBC (Bld) [#/Vol] 10*3/uL Normal <0.01 [facility] Comment on above: Order Comment: Speci men Type: BLOOD SPECIMENOrdering Facility: [facility] Address: [address] [place] [address] Performed By: #### 5 8410-2 ####[facility]ORATORYCLIA [id number] [address] Platelet mean volume (Bld) [Entitic vol] 9.7 fL Normal 9.0-12.7 [facility] Comment on above: Order Comment: Speci men Type: BLOOD SPECIMENOrdering Facility: [facility] Address: [address] [place] [address] Performed By: #### 5 8410-2 ####[facility]ORATORYCLIA [id number] [address] [place] Platelets (Bld) [#/Vol] 306 10*3/uL Normal 150-400 [facility] Comment on above: Order Comment: Speci men Type: BLOOD SPECIMENOrdering Facility: [facility] Address: [address] [place] [address] Performed By: #### 5 8410-2 ####[facility]ATORYCLIA [id number] [place] [address] [place] RBC (Bld) [#/Vol] 3.39 10*6/uL Low 4.20-6.00 [facility] Comment on above: Order Comment: Speci men Type: BLOOD SPECIMENOrdering Facility: [facility] Address: [address] [place] [address] Performed By: #### 5 8410-2 ####[facility]ORATORYCLIA [id number] [address] STATES OF [facility] WBC (Bld) [#/Vol] 9.81 10*3/uL Normal 3.70-11.00 [facility] Comment on above: Order Comment: Speci men Type: BLOOD SPECIMENOrdering Facility: [facility] Address: [address] [place] [address] Performed By: #### 5 8410-2 ####[facility]ORATORYCLIA [id number] [address] [place] CONSULTon 07-10-2021 CONSULT Normal [facility] CONSULT Normal [facility] Magnesium SerPl-mCncon 07-10 Magnesium [Mass/Vol] 1.9 mg/dL Normal 1.7-2.3 [facility] Comment on above: Order Comment: Speci men Type: BLOOD SPECIMENOrdering Facility: [facility] Address: [address] [place] [address] Performed By: #### 1 9123-9, 2777-1, 39561-2 ####[facility]ORATORYCLIA [id number] [place] [address] [place] NURSING PROGon 07-10-2021 NURSING PROG Normal [facility] NURSING PROG Normal [facility] NUTRITIONon 07-10-2021 NUTRITION Normal [facility] Phosphate SerPl-mCncon 07-10 Phosphate [Mass/Vol] 3.6 mg/dL Normal 2.7-4.8 [facility] Comment on above: Order Comment: Speci men Type: BLOOD SPECIMENOrdering Facility: [facility] Address: [address] [place] [address] Performed By: #### 1 9123-9, 2777-1, 96749-1 ####[facility]ORATORYCLIA [id number] [place] [address] [place] US DVT LOWER BILon US DVT LOWER RAINER Normal [facility] aPTT PPPon 07-10-2021 aPTT Coag (PPP) [Time] 28.8 s Normal 23.0-32.4 [facility] Comment on above: Order Comment: Speci men Type: BLOOD SPECIMENOrdering Facility: [facility] Address: [address] [place] [address] Performed By: #### 1 4979-9 ####[facility]ORATORYCLIA [id number] [address] aPTT Coag (PPP) [Time] 28.4 s Normal 23.0-32.4 [facility] Comment on above: Order Comment: Speci men Type: BLOOD SPECIMENOrdering Facility: [facility] Address: [address] [place] [address] Performed By: #### 1 4979-9 ####[facility]ORATORYCLIA [id number] [place] [address] [place] ALLIED HEALTHon 07-09-2021 ALLIED HEALTH Normal [facility] Basic metabolic 2000 panelon 07-09-2021 Anion gap [Moles/Vol] 9 mmol/L Normal 9-18 [facility] Comment on above: Order Comment: Speci men Type: BLOOD SPECIMENOrdering Facility: [facility] Address: [address] [place] [address] Performed By: #### 1 9123-9, 2777, 66202-9 ####[facility]ORATORYCLIA [id number] [place] [address] [place] Calcium [Mass/Vol] 8.3 mg/dL Low 8.5-10.2 [facility] Comment on above: Order Comment: Speci men Type: BLOOD SPECIMENOrdering Facility: [facility] Address: [address] [place] [address] Performed By: #### 1 9123-9, 27711-04, 65598-8 ####[facility]ORATORYCLIA [id number] [place] [address] [place] Chloride [Moles/Vol] 100 mmol/L Normal 97-105 [facility] Comment on above: Order Comment: Speci men Type: BLOOD SPECIMENOrdering Facility: [facility] Address: [address] [place] [address] Performed By: #### 1 9123-9, 27711-04, 92848-9 ####[facility]ORATORYCLIA [id number] [address] [place] CO2 [Moles/Vol] 29 mmol/L Normal 22-30 [facility] Comment on above: Order Comment: Speci men Type: BLOOD SPECIMENOrdering Facility: [facility] Address: [address] [place] [address] Performed By: #### 1 9123-9, 2776-05, 26961-9 ####[facility]ORATORYCLIA [id number] [place] [address] [place] Creatinine [Mass/Vol] 0.61 mg/dL Low 0.73-1.22 [facility] Comment on above: Order Comment: Speci men Type: BLOOD SPECIMENOrdering Facility: [facility] Address: [address] [place] [address] Performed By: #### 1 9123-9, 27711-04, 34340-5 ####[facility]ORATORYCLIA [id number] [place] [address] [place] ESTIMATED GLOMERULAR FILTRATION RATE 104 mL/min/1.73m??? Normal >=60 [facility] Comment on above: Order Comment: Shira feldman Type: BLOOD SPECIMENOrdering Facility: [facility] Address: [address] [place], [place] [id number] Result Comment: Luzmaria mated Glomerular Filtration Rate [...] GFR. Performed By: #### 1 9123-9, 2777-1, 36559-3 ####[facility]ENTERCLIA [id number] [place] [address] [place] Glucose [Mass/Vol] 106 mg/dL High 74-99 [facility] Comment on above: Order Comment: Shira feldman Type: BLOOD SPECIMENOrdering Facility: [facility] Address: [address] [place] [address] Result Comment: The [place] [employer] (ADA) provides guidance for cutoff [...] Standards of Medical Care in Diabetes 2016, [place] [employer]. Diabetes Care. 2016.39(Suppl 1). Performed By: #### 1 9123-9, 2777-1, 70806-4 ####[facility]ORATORYCLIA [id number] [place] [address] [place] Potassium [Moles/Vol] 3.6 mmol/L Low 3.7-5.1 [facility] Comment on above: Order Comment: Speci men Type: BLOOD SPECIMENOrdering Facility: [facility] Address: [address] [place] [address] Performed By: #### 1 9123-9, 2777-, 99257-6 ####[facility]ORATORYCLIA [id number] [address] STATES OF [facility] Sodium [Moles/Vol] 138 mmol/L Normal 136-144 [facility] Comment on above: Order Comment: Speci men Type: BLOOD SPECIMENOrdering Facility: [facility] Address: [address] [place] [address] Performed By: #### 1 9123-9, 27711-04, 22293-8 ####[facility]ORATORYCLIA [id number] [address] STATES OF [facility] Urea nitrogen [Mass/Vol] 12 mg/dL Normal 9-24 [facility] Comment on above: Order Comment: Speci men Type: BLOOD SPECIMENOrdering Facility: [facility] Address: [address] [place] [address] Performed By: #### 1 9123-9, 27711-04, 43313-7 ####[facility]ORATORYCLIA [id number] [address] STATES OF [facility] CBC panel Auto (Bld)on 07-09 Erythrocyte distribution width (RBC) [Ratio] 16.2 % High 11.5-15.0 [facility] Comment on above: Order Comment: Speci men Type: BLOOD SPECIMENOrdering Facility: [facility] Address: [address] [place] [address] Performed By: #### 5 8410-2 ####[facility]ORATORYCLIA [id number] [address] Hematocrit (Bld) [Volume fraction] 29.0 % Low 39.0-51.0 [facility] Comment on above: Order Comment: Speci men Type: BLOOD SPECIMENOrdering Facility: [facility] Address: [address] [place] [address] Performed By: #### 5 8410-2 ####[facility]ORATORYCLIA [id number] [address] Hemoglobin (Bld) [Mass/Vol] 8.8 g/dL Low 13.0-17.0 [facility] Comment on above: Order Comment: Speci men Type: BLOOD SPECIMENOrdering Facility: [facility] Address: [address] [place] [address] Performed By: #### 5 8410-2 ####[facility]ORATORYCLIA [id number] [address] MCH (RBC) [Entitic mass] 27.0 pg Normal 26.0-34.0 [facility] Comment on above: Order Comment: Speci men Type: BLOOD SPECIMENOrdering Facility: [facility] Address: [address] [place] [address] Performed By: #### 5 8410-2 ####[facility]ORATORYCLIA [id number] [address] MCHC (RBC) [Mass/Vol] 30.3 g/dL Low 30.5-36.0 [facility] Comment on above: Order Comment: Speci men Type: BLOOD SPECIMENOrdering Facility: [facility] Address: [address] [place] [address] Performed By: #### 5 8410-2 ####[facility]ORATORYCLIA [id number] [address] MCV (RBC) [Entitic vol] 89.0 fL Normal 80.0-100.0 [facility] Comment on above: Order Comment: Speci men Type: BLOOD SPECIMENOrdering Facility: [facility] Address: [address] [place] [address] Performed By: #### 5 8410-2 ####[facility]ORATORYCLIA [id number] [address] Nucleated RBC (Bld) [#/Vol] 10*3/uL Normal <0.01 [facility] Comment on above: Order Comment: Speci men Type: BLOOD SPECIMENOrdering Facility: [facility] Address: [address] [place], [place] [id number] Performed By: #### 5 8410-2 ####[facility]ORATORYCLIA [id number] [address] [place] Platelet mean volume (Bld) [Entitic vol] 9.8 fL Normal 9.0-12.7 [facility] Comment on above: Order Comment: Speci men Type: BLOOD SPECIMENOrdering Facility: [facility] Address: [address] [place] [address] Performed By: #### 5 8410-2 ####[facility]ORATORYCLIA [id number] [address] [place] Platelets (Bld) [#/Vol] 281 10*3/uL Normal 150-400 [facility] Comment on above: Order Comment: Speci men Type: BLOOD SPECIMENOrdering Facility: [facility] Address: [address] [place], [place] [id number] Performed By: #### 5 8410-2 ####[facility]ORATORYCLIA [id number] [place] [address] [place] RBC (Bld) [#/Vol] 3.26 10*6/uL Low 4.20-6.00 [facility] Comment on above: Order Comment: Speci men Type: BLOOD SPECIMENOrdering Facility: [facility] Address: [address] [place], [place] [id number] Performed By: #### 5 8410-2 ####[facility]ORATORYCLIA [id number] [address] OF [place] WBC (Bld) [#/Vol] 9.12 10*3/uL Normal 3.70-11.00 [facility] Comment on above: Order Comment: Speci men Type: BLOOD SPECIMENOrdering Facility: [facility] Address: [address] [place], [place] [id number] Performed By: #### 5 8410-2 ####[facility]ORATORYCLIA [id number] [address] OF [facility] CONSULT PROGon 07-09-2021 CONSULT PROG Normal [facility] CONSULT PROG Normal [facility] HISTORY PHYSICALon HISTORY PHYSICAL Normal [facility] Magnesium SerPl-mCncon 07-09 Magnesium [Mass/Vol] 1.9 mg/dL Normal 1.7-2.3 [facility] Comment on above: Order Comment: Speci men Type: BLOOD SPECIMENOrdering Facility: [facility] Address: [address] [place] [address] Performed By: #### 1 9123-9, 2777-1, 84670-5 ####[facility]ORATORYCLIA [id number] [address] Phosphate SerPl-ncon 07-09 Phosphate [Mass/Vol] 3.6 mg/dL Normal 2.7-4.8 [facility] Comment on above: Order Comment: Speci men Type: BLOOD SPECIMENOrdering Facility: [facility] Address: [address] [place] [address] Performed By: #### 1 9123-9, 2777-1, 90945-2 ####[facility]ORATORYCLIA [id number] [address] [place] THERAPY NTon 07-09-2021 THERAPY NT Normal [facility] [...] Performed By: #### 6 00-7 ####[facility]ORATORYCLIA [id number] [address] Bacteria identified Cx Nom (Bld) CULTURE, BLOOD: No growth 5 days [facility] Comment on above: Performed By: #### 6 00-7 ####[facility]ORATORYCLIA [id number] [address] Bacteria CSF Culton 07-09-19 22 Bacteria identified Cx Nom (CSF) CULTURE, CSF: No growth 14 days GRAM STAIN: No organisms seen No Polymorphonuclear Leukocytes Few Red Blood Cells Gram stain performed on cytospun specimen. Normal [facility] Comment on above: Performed By: #### 6 06-4 ####[facility]ORATORYCLIA [id number] [address] Bacteria Ur Culton 2 Bacteria identified Cx Nom (U) ORGANISM ID: 1 10,000 -<50,000 CFU/ml Proteus species Insignificant colony count. No further workup. ORGANISM ID: 2 <10,000 CFU/ml Normal urogenital chris Normal [facility] Comment on above: Performed By: #### 6 30-4 ####[facility]ORATORYCLIA [id number] [address] Bacteria Wnd Culton 07-09-19 22 Bacteria identified Cx Nom (Wound) ORGANISM ID: 1 Coagulase negative staphylococcus Growth in Enrichment Broth Only No susceptibility testing done. Call lab within 72 hours to initiate work-up if clinically indicated. GRAM STAIN: Account credited. Not performed on this specimen type. [facility] Comment on above: Performed By: #### 6 462-6 ####[facility]ORATORYCLIA [id number] [address] Bacteria identified Cx Nom (Wound) ORGANISM ID: 1 Rare Coagulase negative staphylococcus No susceptibility testing done. Call lab within 72 hours to initiate work-up if clinically indicated. GRAM STAIN: Account credited. Not performed on this specimen type. [facility] Comment on above: Performed By: #### 6 462-6 ####[facility]ORATORYCLIA [id number] [place] [address] [place] Bacteria identified Cx Nom (Wound) CULTURE, INTRAOPERATIVE HARDWARE: No growth 14 days GRAM STAIN: Account credited. Not performed on this specimen type. Normal [facility] Comment on above: Performed By: #### 6 462-6 ####[facility]ORATORYCLIA [id number] [place] [address] [place] Basic metabolic 2000 panelon 07-08-2021 Anion gap [Moles/Vol] 9 mmol/L Normal 9-18 [facility] Comment on above: Order Comment: Speci men Type: BLOOD SPECIMENOrdering Facility: [facility] Address: [address] [place] [address] Performed By: #### 2 4321-2 ####[facility]ORATORYCLIA [id number] [place] [address] [place] Calcium [Mass/Vol] 8.5 mg/dL Normal 8.5-10.2 [facility] Comment on above: Order Comment: Speci men Type: BLOOD SPECIMENOrdering Facility: [facility] Address: [address] [place] [address] Performed By: #### 2 4321-2 ####[facility]ORATORYCLIA [id number] [address] [place] Chloride [Moles/Vol] 98 mmol/L Normal 97-105 [facility] Comment on above: Order Comment: Speci men Type: BLOOD SPECIMENOrdering Facility: [facility] Address: [address] [place] [address] Performed By: #### 2 4321-2 ####[facility]ORATORYCLIA [id number] [address] [place] CO2 [Moles/Vol] 31 mmol/L High 22-30 [facility] Comment on above: Order Comment: Speci men Type: BLOOD SPECIMENOrdering Facility: [facility] Address: [address] [place] [address] Performed By: #### 2 4321-2 ####[facility]ORATORYCLIA [id number] [address] STATES OF [facility] Creatinine [Mass/Vol] 0.64 mg/dL Low 0.73-1.22 [facility] Comment on above: Order Comment: Shira francia Type: BLOOD SPECIMENOrdering Facility: [facility] Address: [address] [place] [address] Performed By: #### 2 4321-2 ####[facility]ORATORYCLIA [id number] [address] ESTIMATED GLOMERULAR FILTRATION RATE 102 mL/min/1.73m??? Normal >=60 [facility] Comment on above: Order Comment: Shira feldman Type: BLOOD SPECIMENOrdering Facility: [facility] Address: [address] [place] [address] Result Comment: Luzmaria mated Glomerular Filtration Rate [...] Performed By: #### 2 4321-2 ####[facility]ORATORYCLIA [id number] [address] [place] Glucose [Mass/Vol] 114 mg/dL High 74-99 [facility] Comment on above: Order Comment: Johncara feldman Type: BLOOD SPECIMENOrdering Facility: [facility] Address: [address] [place] [address] Result Comment: The [place] [employer] (ADA) provides guidance for cutoff [...] Standards of Medical Care in Diabetes 2016, [place] [employer]. Diabetes Care. 2016.39(Suppl 1). Performed By: #### 2 4321-2 ####[facility]ORATORYCLIA [id number] [place] [address] [place] Potassium [Moles/Vol] 3.4 mmol/L Low 3.7-5.1 [facility] Comment on above: Order Comment: Speci men Type: BLOOD SPECIMENOrdering Facility: [facility] Address: [address] [place] [address] Performed By: #### 2 4321-2 ####[facility]ORATORYCLIA [id number] [address] STATES [facility] Sodium [Moles/Vol] 138 mmol/L Normal 136-144 [facility] Comment on above: Order Comment: Speci men Type: BLOOD SPECIMENOrdering Facility: [facility] Address: [address] [place] [address] Performed By: #### 2 4321-2 ####[facility]ORATORYCLIA [id number] [address] STATES [facility] Urea nitrogen [Mass/Vol] 14 mg/dL Normal 9-24 [facility] Comment on above: Order Comment: Speci men Type: BLOOD SPECIMENOrdering Facility: [facility] Address: [address] [address] Performed By: #### 2 4321-2 ####[facility]ORATORYCLIA [id number] [place] [address] [place] CBC W Auto Differential pane l (Bld)on 07-08-2021 Basophils (Bld) [#/Vol] 0.05 10*3/uL Normal <0.11 [facility] Comment on above: Order Comment: Speci men Type: BLOOD SPECIMENOrdering Facility: [facility] Address: [address] [address] Performed By: #### 5 7021-8 ####[facility]ORATORYCLIA [id number] [address] [place] Basophils/100 WBC (Bld) 0.4 % Normal [facility] Comment on above: Order Comment: Speci men Type: BLOOD SPECIMENOrdering Facility: [facility] Address: [address] [place] [address] Performed By: #### 5 7021-8 ####[facility]ORATORYCLIA [id number] [address] [place] Differential cell count method Nom (Bld) Auto Normal [facility] Comment on above: Order Comment: Speci men Type: BLOOD SPECIMENOrdering Facility: [facility] Address: [address] [place] [address] Performed By: #### 5 7021-8 ####[facility]ATORYCLIA [id number] [address] [place] Eosinophils (Bld) [#/Vol] 0.68 10*3/uL High <0.46 [facility] Comment on above: Order Comment: Speci men Type: BLOOD SPECIMENOrdering Facility: [facility] Address: [address] [place] [address] Performed By: #### 5 7021-8 ####[facility]ORYCLIA [id number] [address] Eosinophils/100 WBC (Bld) 5.4 % Normal [facility] Comment on above: Order Comment: Speci men Type: BLOOD SPECIMENOrdering Facility: [facility] Address: [address] [place] [address] Performed By: #### 5 7021-8 ####[facility]ATORYCLIA [id number] [address] [place] Erythrocyte distribution width (RBC) [Ratio] 16.3 % High 11.5-15.0 [facility] Comment on above: Order Comment: Speci men Type: BLOOD SPECIMENOrdering Facility: [facility] Address: [address] [address] Performed By: #### 5 7021-8 ####[facility]ORATORYCLIA [id number] [address] Hematocrit (Bld) [Volume fraction] 35.7 % Low 39.0-51.0 [facility] Comment on above: Order Comment: Speci men Type: BLOOD SPECIMENOrdering Facility: [facility] Address: [address] [place] [address] Performed By: #### 5 7021-8 ####[facility]ATORYCLIA [id number] [address] Hemoglobin (Bld) [Mass/Vol] 10.8 g/dL Low 13.0-17.0 [facility] Comment on above: Order Comment: Speci men Type: BLOOD SPECIMENOrdering Facility: [facility] Address: [address] [place] [address] Performed By: #### 5 7021-8 ####[facility]ORATORYCLIA [id number] [address] IMMATURE GRAN % 0.4 % Normal [facility] Comment on above: Order Comment: Speci men Type: BLOOD SPECIMENOrdering Facility: [facility] Address: [address] [place] [address] Performed By: #### 5 7021-8 ####[facility]ORATORYCLIA [id number] [address] IMMATURE GRAN ABS 0.05 k/uL Normal <0.10 [facility] Comment on above: Order Comment: Speci men Type: BLOOD SPECIMENOrdering Facility: [facility] Address: [address] [place] [address] Performed By: #### 5 7021-8 ####[facility] LABORATORYCLIA [id number] [address] [facility] Lymphocytes (Bld) [#/Vol] 1.85 10*3/uL Normal 1.00-4.00 [facility] Comment on above: Order Comment: Speci men Type: BLOOD SPECIMENOrdering Facility: [facility] Address: [address] [place] [address] Performed By: #### 5 7021-8 ####[facility] LABORATORYCLIA [id number] [address] Lymphocytes/100 WBC (Bld) 14.7 % Normal [facility] Comment on above: Order Comment: Speci men Type: BLOOD SPECIMENOrdering Facility: [facility] Address: [address] [place] [address] Performed By: #### 5 7021-8 ####[facility] LABORATORYCLIA [id number] [address] MCH (RBC) [Entitic mass] 27.1 pg Normal 26.0-34.0 [facility] Comment on above: Order Comment: Speci men Type: BLOOD SPECIMENOrdering Facility: [facility] Address: [address] [place] [address] Performed By: #### 5 7021-8 ####[facility] LABORATORYCLIA [id number] [address] MCHC (RBC) [Mass/Vol] 30.3 g/dL Low 30.5-36.0 [facility] Comment on above: Order Comment: Speci men Type: BLOOD SPECIMENOrdering Facility: [facility] Address: [address] [place] [address] Performed By: #### 5 7021-8 ####[facility] LABORATORYCLIA [id number] [address] MCV (RBC) [Entitic vol] 89.7 fL Normal 80.0-100.0 [facility] Comment on above: Order Comment: Speci men Type: BLOOD SPECIMENOrdering Facility: [facility] Address: [address] [place] [address] Performed By: #### 5 7021-8 ####[facility] LABORATORYCLIA [id number] [address] [place] Monocytes (Bld) [#/Vol] 0.87 10*3/uL High <0.87 [facility] Comment on above: Order Comment: Speci men Type: BLOOD SPECIMENOrdering Facility: [facility] Address: [address] [place] [address] Performed By: #### 5 7021-8 ####[facility] LABORATORYCLIA [id number] [place] [address] [place] Monocytes/100 WBC (Bld) 6.9 % Normal [facility] Comment on above: Order Comment: Speci men Type: BLOOD SPECIMENOrdering Facility: [facility] Address: [address] [place] [address] Performed By: #### 5 7021-8 ####[facility] LABORATORYCLIA [id number] [address] [place] Neutrophils (Bld) [#/Vol] 9.05 10*3/uL High 1.45-7.50 [facility] Comment on above: Order Comment: Speci men Type: BLOOD SPECIMENOrdering Facility: [facility] Address: [address] [place] [address] Performed By: #### 5 7021-8 ####[facility] LABORATORYCLIA [id number] [address] [place] Neutrophils/100 WBC (Bld) 72.2 % Normal [facility] Comment on above: Order Comment: Speci men Type: BLOOD SPECIMENOrdering Facility: [facility] Address: [address] [place] [address] Performed By: #### 5 7021-8 ####[facility] LABORATORYCLIA [id number] [place] [address] [place] Nucleated RBC (Bld) [#/Vol] 10*3/uL Normal <0.01 [facility] Comment on above: Order Comment: Speci men Type: BLOOD SPECIMENOrdering Facility: [facility] Address: [address] [place] [address] Performed By: #### 5 7021-8 ####[facility] LABORATORYCLIA [id number] [address] [place] Nucleated RBC/100 WBC (Bld) [Ratio] 0.0 /100 WBC Normal [facility] Comment on above: Order Comment: Speci men Type: BLOOD SPECIMENOrdering Facility: [facility] Address: [address] [place] [address] Performed By: #### 5 7021-8 ####[facility] LABORATORYCLIA [id number] [address] [place] Platelet mean volume (Bld) [Entitic vol] 9.9 fL Normal 9.0-12.7 [facility] Comment on above: Order Comment: Speci men Type: BLOOD SPECIMENOrdering Facility: [facility] Address: [address] [place] [address] Performed By: #### 5 7021-8 ####[facility] LABORATORYCLIA [id number] [address] [place] Platelets (Bld) [#/Vol] 335 10*3/uL Normal 150-400 [facility] Comment on above: Order Comment: Speci men Type: BLOOD SPECIMENOrdering Facility: [facility] Address: [address] [place] [address] Performed By: #### 5 7021-8 ####[facility] LABORATORYCLIA [id number] [address] [place] RBC (Bld) [#/Vol] 3.98 10*6/uL Low 4.20-6.00 [facility] Comment on above: Order Comment: Speci men Type: BLOOD SPECIMENOrdering Facility: [facility] Address: [address] [place] [address] Performed By: #### 5 7021-8 ####[facility] LABORATORYCLIA [id number] [address] [place] WBC (Bld) [#/Vol] 12.55 10*3/uL High 3.70-11.00 [facility] Comment on above: Order Comment: Speci men Type: BLOOD SPECIMENOrdering Facility: [facility] Address: [address] [place] [address] Performed By: #### 5 7021-8 ####[facility] LABORATORYCLIA [id number] [address] [place] CK CREATINE KINASEon 022 CK [Catalytic activity/Vol] 72 U/L Normal 51-298 [facility] Comment on above: Order Comment: Speci men Type: BLOOD SPECIMENOrdering Facility: [facility] Address: [address] [place] [address] Performed By: #### C K, 37088-8 ####[facility] LABORATORYCLIA [id number] [address] [place] CONSULT PROGon 07-08-2021 CONSULT PROG Normal [facility] CONSULT PROG Normal [facility] CSF MANUAL DIFFon 07-08-2021 DIF TTL, CSF 3 cells counted Normal [facility] Comment on above: Order Comment: Speci men Type: CEREBROSPINAL FLUIDOrdering Facility: [facility] Address: [address] [place] [address] Performed By: #### 3 4563-7, [id number] ####[facility] LABORATORYCLIA [id number] [place] [address] [place] LYMPH%, CSF 33 % Low 50-90 [facility] Comment on above: Order Comment: Speci men Type: CEREBROSPINAL FLUIDOrdering Facility: [facility] Address: [address] [place] [address] Performed By: #### 3 4563-7, [id number] ####[facility] LABORATORYCLIA [id number] [place] [address] [place] MONO%, CSF 67 % High 10-50 [facility] Comment on above: Order Comment: Speci men Type: CEREBROSPINAL FLUIDOrdering Facility: [facility] Address: [address] [place] [address] Performed By: #### 3 4563-7, [id number] ####[facility] LABORATORYCLIA [id number] [address] [place] CT ABD/PEL [...] Comment: Speci men Type: CEREBROSPINAL FLUIDOrdering Facility: [facility] Address: [address] [place] [address] Performed By: #### 3 4563-7, [id number] ####[facility]ORATORYCLIA [id number] [address] [place] Clarity (Unsp spec) Clear Normal Clear [facility] Comment on above: Order Comment: Speci men Type: CEREBROSPINAL FLUIDOrdering Facility: [facility] Address: [address] [place] [address] Performed By: #### 3 4563-7, [id number] ####[facility] LABORATORYCLIA [id number] [address] [place] Color (CSF) Colorless Normal Colorless [facility] Comment on above: Order Comment: Speci men Type: CEREBROSPINAL FLUIDOrdering Facility: [facility] Address: [address] [address] Performed By: #### 3 4563-7, [id number] ####[facility] LABORATORYCLIA [id number] [address] [place] Color (Spun CSF) Colorless Normal Colorless [facility] Comment on above: Order Comment: Speci men Type: CEREBROSPINAL FLUIDOrdering Facility: [facility] Address: [facility] [place] [address] Performed By: #### 3 4563-7, [id number] ####[facility] LABORATORYCLIA [id number] [address] CSF [employer] Normal [facility] Comment on above: Order Comment: Speci men Type: CEREBROSPINAL FLUIDOrdering Facility: [facility] Address: [address] [place] [address] Performed By: #### 3 4563-7, [id number] ####[facility]ORATORYCLIA [id number] [address] RBC Manual cnt (CSF) [#/Vol] 94 cells/uL High 0-5 [facility] Comment on above: Order Comment: Speci men Type: CEREBROSPINAL FLUIDOrdering Facility: [facility] Address: [address] [place] [address] Performed By: #### 3 4563-7, [id number] ####[facility] LABORATORYCLIA [id number] [address] WBC Manual cnt (CSF) [#/Vol] 1 cells/uL Normal 0-5 [facility] Comment on above: Order Comment: Speci men Type: CEREBROSPINAL FLUIDOrdering Facility: [facility] Address: [address] [place] [address] Performed By: #### 3 4563-7, [id number] ####[facility] LABORATORYCLIA [id number] [address] Comprehensive metabolic 2000 panelon 07-08-2021 Albumin [Mass/Vol] 3.6 g/dL Low 3.9-4.9 [facility] Comment on above: Order Comment: Speci men Type: BLOOD SPECIMENOrdering Facility: [facility] Address: [address] [place] [address] Performed By: #### C K, 05381-7 ####[facility]ORATORYCLIA [id number] [address] [place] ALP [Catalytic activity/Vol] 125 U/L High 38-113 [facility] Comment on above: Order Comment: Speci men Type: BLOOD SPECIMENOrdering Facility: [facility] Address: [address] [address] Performed By: #### Eileen Valdivia, 88495-4 ####[facility]ORATORYCLIA [id number] [address] [place] ALT With P-5'-P [Catalytic activity/Vol] 24 U/L Normal 10-54 [facility] Comment on above: Order Comment: Speci men Type: BLOOD SPECIMENOrdering Facility: [facility] Address: [address] [place] [address] Performed By: #### Eileen Valdivia, 91642-4 ####[facility] LABORATORYCLIA [id number] [address] OF [facility] Anion gap [Moles/Vol] 16 mmol/L Normal 9-18 [facility] Comment on above: Order Comment: Speci men Type: BLOOD SPECIMENOrdering Facility: [facility] Address: [address] [place] [address] Performed By: #### Eileen Valdivia, 96060-4 ####[facility] LABORATORYCLIA [id number] [address] AST With P-5'-P [Catalytic activity/Vol] 21 U/L Normal 14-40 [facility] Comment on above: Order Comment: Speci men Type: BLOOD SPECIMENOrdering Facility: [facility] Address: [address] [place] [address] Performed By: #### Eileen Valdivia, 21979-6 ####[facility]ORATORYCLIA [id number] [address] [place] Bilirubin [Mass/Vol] 0.3 mg/dL Normal 0.2-1.3 [facility] Comment on above: Order Comment: Speci men Type: BLOOD SPECIMENOrdering Facility: [facility] Address: [address] [place] [address] Performed By: #### Eileen Valdivia, 69173-7 ####[facility]ORATORYCLIA [id number] [place] [address] [place] Calcium [Mass/Vol] 8.9 mg/dL Normal 8.5-10.2 [facility] Comment on above: Order Comment: Speci men Type: BLOOD SPECIMENOrdering Facility: [facility] Address: [address] [place] [address] Performed By: #### Eileen Valdivia, 89203-1 ####[facility] LABORATORYCLIA [id number] [place] [address] [place] Chloride [Moles/Vol] 96 mmol/L Low 97-105 [facility] Comment on above: Order Comment: Speci men Type: BLOOD SPECIMENOrdering Facility: [facility] Address: [address] [place] [address] Performed By: #### Eileen Valdivia, 15177-0 ####[facility] LABORATORYCLIA [id number] [address] [place] CO2 [Moles/Vol] 27 mmol/L Normal 22-30 [facility] Comment on above: Order Comment: Speci men Type: BLOOD SPECIMENOrdering Facility: [facility] Address: [address] [place] [address] Performed By: #### Eileen Valdivia, 81070-6 ####[facility] LABORATORYCLIA [id number] [place] [address] [place] Creatinine [Mass/Vol] 0.68 mg/dL Low 0.73-1.22 [facility] Comment on above: Order Comment: Speci men Type: BLOOD SPECIMENOrdering Facility: [facility] Address: [address] [place] [address] Performed By: #### Eileen Valdivia, 05266-9 ####[facility] LABORATORYCLIA [id number] [address] ESTIMATED GLOMERULAR FILTRATION RATE 101 mL/min/1.73m??? Normal >=60 [facility] Comment on above: Order Comment: Speci men Type: BLOOD SPECIMENOrdering Facility: [facility] Address: [address] [place] [address] Result Comment: Luzmaria mated Glomerular Filtration Rate [...] actual GFR. Performed By: #### Eileen Valdivia, 57857-7 ####[facility] LABORATORYCLIA [id number] [place] [address] [place] Glucose [Mass/Vol] 130 mg/dL High 74-99 [facility] Comment on above: Order Comment: Shira men Type: BLOOD SPECIMENOrdering Facility: [facility] Address: [address] [address] Result Comment: The [place] [employer] (ADA) provides guidance for cutoff [...] Standards of Medical Care in Diabetes 2016, [place] [employer]. Diabetes Care. 2016.39(Suppl 1). Performed By: #### Eileen Valdivia, 38142-7 ####[facility] LABORATORYCLIA [id number] [place] [address] [place] Potassium [Moles/Vol] 3.9 mmol/L Normal 3.7-5.1 [facility] Comment on above: Order Comment: Shira feldman Type: BLOOD SPECIMENOrdering Facility: [facility] Address: [address] Performed By: #### Eileen Valdivia, 34877-4 ####[facility] LABORATORYCLIA [id number] [place] [address] Protein [Mass/Vol] 7.0 g/dL Normal 6.3-8.0 [facility] Comment on above: Order Comment: Speci men Type: BLOOD SPECIMENOrdering Facility: [facility] Address: [address] [place] [address] Performed By: #### C Skip, 13077-8 ####[facility]ORATORYCLIA [id number] [address] STATES [facility] Sodium [Moles/Vol] 139 mmol/L Normal 136-144 [facility] Comment on above: Order Comment: Speci men Type: BLOOD SPECIMENOrdering Facility: [facility] Address: [address] [place] [address] Performed By: #### Eileen Valdivia, 98435-2 ####[facility] LABORATORYCLIA [id number] [address] STATES [facility] Urea nitrogen [Mass/Vol] 16 mg/dL Normal 9-24 [facility] Comment on above: Order Comment: Speci men Type: BLOOD SPECIMENOrdering Facility: [facility] Address: [address] [place] [address] Performed By: #### Eileen Valdivia, 76144-3 ####[facility]ORATORYCLIA [id number] [address] OF [facility] ED NOTEon 07-08-2021 ED NOTE HNO ID: [id number] Author: Lenora James RN Service: Emergency Medicine Author Type: Registered Nurse Type: ED Notes Filed: 07/08/2021 5:03 PM Note Text: Pt to OR with surgical team Normal [facility] ED NOTE HNO ID: [id number] Author: Lenora James RN Service: Emergency Medicine Author Type: Registered Nurse Type: ED Notes Filed: 07/08/2021 4:50 PM Note Text: OR team to get pt Normal [facility] ED NOTE HNO ID: [id number] Author: Lenora James RN Service: Emergency Medicine Author Type: Registered Nurse Type: ED Notes Filed: 07/08/2021 4:50 PM Note Text: Normal [facility] ED NOTE HNO ID: [id number] Author: Lenora James RN Service: Emergency Medicine Author Type: Registered Nurse Type: ED Notes Filed: 07/08/2021 4:50 PM Note Text: Spoke with presurg; pt to go to OR now [facility] ED NOTE HNO ID: [id number] Author: Lenora James RN Service: Emergency Medicine Author Type: Registered Nurse Type: ED Notes Filed: 07/08/2021 4:12 PM Note Text: Neurosurgery at beside [facility] ED NOTE HNO ID: [id number] Author: Lenora James RN Service: Emergency Medicine Author Type: Registered Nurse Type: ED Notes Filed: 07/08/2021 2:35 PM Note Text: respiratory aware of pt breathing treatments [facility] ED NOTE HNO ID: [id number] Author: Lisa Woo RN Service: ? Author Type: Registered Nurse Type: ED Notes Filed: 07/08/2021 2:20 PM Note Text: Xray notified pt is ready. [facility] ED NOTE HNO ID: [id number] Author: Lenora James RN Service: Emergency Medicine Author Type: Registered Nurse Type: ED Notes Filed: 07/08/2021 12:14 PM Note Text: CT notified regarding imaging orders placed [facility] ED NOTE Normal [facility] ED PROV NOTEon 07-08-2021 ED PROV NOTE Normal [facility] Glucose CSF-mCncon 2 Glucose (CSF) [Mass/Vol] 88 mg/dL High 40-70 [facility] Comment on above: Order Comment: Speci men Type: CEREBROSPINAL FLUIDOrdering Facility: [facility] Address: [address] [place] [phone] Result Comment: Lumb ar CSF glucose values of healthy patients are approximately 60% of the plasma values and must always be compared with a concurrently measured plasma value for adequate clinical interpretation.References: 1. Glucose HK (GLUC3) [package insert V 12.0 Estonian]. [employer], [place], [place]. September 2015. 2. Michelle Moore, Michelle Manjarrez (2015). Chapter 7: Glucose and Lactate. Marianela Alcocer al.(eds.), Cerebrospinal Fluid in Clinical Neurology. [place]: [employer]. Performed By: #### 2 880-3, 2342-4 ####[facility] LABORATORYCLIA [id number] [address] HIGH SENSITIVITY TROPONIN To n 07-08-2021 HIGH SENSITIVITY TAMIKO 27 ng/L High <12 [facility] Comment on above: Order Comment: Speci men Type: BLOOD SPECIMENOrdering Facility: [facility] Address: [address] [place] [address] Result Comment: When assessing risk for acute [...] Performed By: #### H STNT ####[facility] LABORATORYIA [id number] [address] HIGH SENSITIVITY TAMIKO 36 ng/L High <12 [facility] Comment on above: Order Comment: Shira feldman Type: BLOOD SPECIMENOrdering Facility: [facility] Address: [address] [place] [address] Result Comment: When assessing risk for acute [...] Performed By: #### H STNT ####[facility] LABORATORYIA [id number] [address] STATES OF [facility] HISTORY PHYSICALon HISTORY PHYSICAL Normal [facility] NURSING PROGon 07-08-2021 NURSING PROG Normal [facility] OPERATIVE NOon 07-08-2021 OPERATIVE NO Normal [facility] Prot CSF-mCncon 07-08-2021 Protein (CSF) [Mass/Vol] 33 mg/dL Normal 15-45 [facility] Comment on above: Order Comment: Speci men Type: CEREBROSPINAL FLUIDOrdering Facility: [facility] Address: [address] [place] [address] Performed By: #### 2 880-3, 2342-4 ####[facility] LABORATORYCLIA [id number] [address] [place] SARS-CoV-2 RNA Resp Ql MEGAN+p robeon 07-08-2021 SARS-CoV-2 (COVID-19) RNA MEGAN+probe Ql (Resp) COVID 19 RESULT: SARS-CoV-2 (Agent of COVID-19) Not Detected by RT-PCR or equivalent method. This test has been authorized by FDA under an Emergency Use Authorization (EUA). Normal [facility] Comment on above: Performed By: #### 9 4500-6 ####[facility] LABORATORYCLIA [id number] [address] [place] STAPH AUREUS PCRon 2 S. aureus and MRSA panel MEGAN+probe (Nose) Normal Negative [facility] Comment on above: Order Comment: Speci men Type: SWAB OF INTERNAL NOSEOrdering Facility: [facility] Address: [address] [place] [address] Result Comment: Nega tive for Staphylococcus aureus by PCR.Negative for MRSA by PCR Performed By: #### S APCR ####[facility]ORATORYCLIA [id number] [place] [address] [place] Urinalysis complete panel (U )on 07-08-2021 Bacteria LM.HPF (Urine sed) [#/Area] Few Abnormal None Seen [facility] Comment on above: Order Comment: Speci men Type: URINE SPECIMENOrdering Facility: [facility] Address: [address] [place] [address] Performed By: #### 2 4356-8 ####[facility] LABORATORYCLIA [id number] [place] [address] Bilirubin Ql (U) Negative Normal Negative [facility] Comment on above: Order Comment: Speci men Type: URINE SPECIMENOrdering Facility: [facility] Address: [address] [place] [address] Performed By: #### 2 4356-8 ####[facility] LABORATORYCLIA [id number] [address] Clarity (Unsp spec) Turbid Abnormal Clear [facility] Comment on above: Order Comment: Speci men Type: URINE SPECIMENOrdering Facility: [facility] Address: [address] [place] [address] Performed By: #### 2 4356-8 ####[facility]ORATORYCLIA [id number] [address] Color (U) Light Yellow Normal yellow [facility] Comment on above: Order Comment: Speci men Type: URINE SPECIMENOrdering Facility: [facility] Address: [address] [place] [address] Performed By: #### 2 4356-8 ####[facility]ORATORYCLIA [id number] [address] Glucose Test strip (U) [Mass/Vol] Negative Normal Negative [facility] Comment on above: Order Comment: Speci men Type: URINE SPECIMENOrdering Facility: [facility] Address: [address] [place] [address] Performed By: #### 2 4356-8 ####[facility] LABORATORYCLIA [id number] [address] STATES [facility] Hemoglobin Ql (U) Negative Normal Negative [facility] Comment on above: Order Comment: Speci men Type: URINE SPECIMENOrdering Facility: [facility] Address: [address] [place] [address] Performed By: #### 2 4356-8 ####[facility] LABORATORYCLIA [id number] [address] [place] Hyaline casts (Urine sed) [#/Area] 1-3 /LPF Abnormal 0 /LPF [facility] Comment on above: Order Comment: Speci men Type: URINE SPECIMENOrdering Facility: [facility] Address: [address] [place] [address] Performed By: #### 2 4356-8 ####[facility]ORATORYCLIA [id number] [address] [place] [facility] Ketones Ql (U) Negative Normal Negative [facility] Comment on above: Order Comment: Speci men Type: URINE SPECIMENOrdering Facility: [facility] Address: [address] [place] [address] Performed By: #### 2 4356-8 ####[facility] LABORATORYCLIA [id number] [address] Leukocyte esterase Test strip Ql (U) Negative Normal Negative [facility] Comment on above: Order Comment: Speci men Type: URINE SPECIMENOrdering Facility: [facility] Address: [address] [place] [address] Performed By: #### 2 4356-8 ####[facility] LABORATORYCLIA [id number] [address] STATES [facility] Nitrite Ql (U) Negative Normal Negative [facility] Comment on above: Order Comment: Speci men Type: URINE SPECIMENOrdering Facility: [facility] Address: [address] [place] [address] Performed By: #### 2 4356-8 ####[facility]ORATORYCLIA [id number] [address] [place] pH (U) 5.0 [pH] Normal 5.0-8.0 [facility] Comment on above: Order Comment: Speci men Type: URINE SPECIMENOrdering Facility: [facility] Address: [address] [place] [address] Performed By: #### 2 4356-8 ####[facility]ORATORYCLIA [id number] [address] [place] Protein (U) [Mass/Vol] Negative Normal Negative [facility] Comment on above: Order Comment: Speci men Type: URINE SPECIMENOrdering Facility: [facility] Address: [address] [place] [address] Performed By: #### 2 4356-8 ####[facility] LABORATORYCLIA [id number] [address] [place] [facility] RBC LM.HPF (Urine sed) [#/Area] 11-25 /HPF Abnormal 0-3 /HPF [facility] Comment on above: Order Comment: Speci men Type: URINE SPECIMENOrdering Facility: [facility] Address: [address] [place] [address] Performed By: #### 2 4356-8 ####[facility] CENTERCLIA [id number] [address] Specific gravity (U) [Rel density] 1.018 Normal 1.005-1.030 [facility] Comment on above: Order Comment: Speci men Type: URINE SPECIMENOrdering Facility: [facility] Address: [address] [place] [address] Performed By: #### 2 4356-8 ####[facility] LABORATORYCLIA [id number] [address] Urobilinogen Ql (U) Normal Normal Negative [facility] Comment on above: Order Comment: Speci men Type: URINE SPECIMENOrdering Facility: [facility] Address: [address] [place] [address] Performed By: #### 2 4356-8 ####[facility]ORATORYCLIA [id number] [address] WBC LM.HPF (Urine sed) [#/Area] /[HPF] Abnormal 0-5 /HPF [facility] Comment on above: Order Comment: Speci men Type: URINE SPECIMENOrdering Facility: [facility] Address: [address] [place] [address] Performed By: #### 2 4356-8 ####[facility] LABORATORYCLIA [id number] [place] [address] [facility] Vancomycin random [Mass/Vol] on 07-08-2021 Vancomycin [Mass/Vol] 31.0 ug/mL High 10.0-20.0 [facility] Comment on above: Order Comment: Speci men Type: BLOOD SPECIMENOrdering Facility: [facility] Address: [facility] [place] [phone] Result Comment: Refe rence ranges and high/low indicator flags are provided as general guidelines only. The treating physician must determine appropriate target levels/dosing based on the specific clinical situation. Performed By: #### 4 091-5 ####[facility]ORATORYCLIA [id number] [address] XR ABD 2V SUPINE W UPR/DECUB [...] Hospital HISTORY PHYSICALon HISTORY PHYSICAL HNO ID: [id number] Author: Amy Beltran MD Service: ? Author Type: Physician Type: HANDP Filed: 06/30/2021 6:42 PM Note Text: Connected Care Unit History and Physical Facility: [facility] Level of Care: Skilled Admission Date: June [...] regarding the above plan. Total time spent bhyu-cy-whpr and/or counseling and coordinating care on the skilled care unit for patient was approximately 45 minutes SUBJECTIVE (HISTORY) Chief Complaint: Confusion, infection, blood clot. Andrew Sifuentes is being seen today for alf facility (SNF) admission AND management of weakness, tube feed, infected retroperitoneal infection and seizure. HPI: This is a 71 year old male who presents from [facility] with primary admitting diagnosis of Seizure, [...] CT brain concerning for hydrocephalus. Tip of [employer] shunt was found to be in the [...] Code Status: (more content not included)... Normal [facility] Basic metabolic 2000 panelon 06-28-2021 Anion gap [Moles/Vol] 7 mmol/L Low 9-18 [facility] Comment on above: Order Comment: Speci men Type: BLOOD SPECIMENOrdering Facility: [facility] Address: [address] Performed By: #### 2 4320-2, ####[facility] LABORATORYCLIA [id number] [place] [address] [place] Calcium [Mass/Vol] 8.8 mg/dL Normal 8.5-10.2 [facility] Comment on above: Order Comment: Speci men Type: BLOOD SPECIMENOrdering Facility: [facility] Address: [address] [place] [address] Performed By: #### 2 4320-06, ####[facility] LABORATORYCLIA [id number] [place] [address] [place] Chloride [Moles/Vol] 103 mmol/L Normal 97-105 [facility] Comment on above: Order Comment: Speci men Type: BLOOD SPECIMENOrdering Facility: [facility] Address: [address] [place] [address] Performed By: #### 2 4320-06, ####[facility] LABORATORYCLIA [id number] [place] [address] [place] CO2 [Moles/Vol] 28 mmol/L Normal 22-30 [facility] Comment on above: Order Comment: Speci men Type: BLOOD SPECIMENOrdering Facility: [facility] Address: [address] [place] [address] Performed By: #### 2 4320-06, ####[facility] LABORATORYCLIA [id number] [place] [address] [place] Creatinine [Mass/Vol] 0.57 mg/dL Low 0.73-1.22 [facility] Comment on above: Order Comment: Speci men Type: BLOOD SPECIMENOrdering Facility: [facility] Address: [address] [place] [address] Performed By: #### 2 2, ####[facility] LABORATORYCLIA [id number] [place] [address] [place] GFR/1.73 sq M.predicted MDRD (S/P/Bld) [Vol rate/Area] mL/min/{1.73_m2} Normal [facility] Comment on above: Order Comment: Shira feldman Type: BLOOD SPECIMENOrdering Facility: [facility] Address: [address] [phone] Result Comment: >60e GFR (Estimated GFR) Units [...] actual GFR. Performed By: #### 2 4321-2, 34789-3 ####[facility] LABORATORYCLIA [id number] [address] OF [facility] Glucose [Mass/Vol] 120 mg/dL High 74-99 [facility] Comment on above: Order Comment: Shira feldman Type: BLOOD SPECIMENOrdering Facility: [facility] Address: [address] [place], [place] [phone] Result Comment: The [place] [employer] (ADA) provides guidance for cutoff [...] Standards of Medical Care in Diabetes 2016, [place] [employer]. Diabetes Care. 2016.39(Suppl 1). Performed By: #### 2 4321-2, 52910-1 ####[facility] LABORATORYCLIA [id number] [address] [place] Potassium [Moles/Vol] 3.8 mmol/L Normal 3.7-5.1 [facility] Comment on above: Order Comment: Speci men Type: BLOOD SPECIMENOrdering Facility: [facility] Address: [address] [place] [address] Performed By: #### 2 4321-2, ####[facility] LABORATORYCLIA [id number] [address] [place] Sodium [Moles/Vol] 138 mmol/L Normal 136-144 [facility] Comment on above: Order Comment: Speci men Type: BLOOD SPECIMENOrdering Facility: [facility] Address: [address] [place] [address] Performed By: #### 2 4321-2, ####[facility] LABORATORYCLIA [id number] [address] STATES OF [facility] Urea nitrogen [Mass/Vol] 24 mg/dL Normal 9-24 [facility] Comment on above: Order Comment: Speci men Type: BLOOD SPECIMENOrdering Facility: [facility] Address: [address] [place] [address] Performed By: #### 2 4321-2, ####[facility] LABORATORYCLIA [id number] [address] [place] CASE MANAGEMon 06-28-2021 CASE MANAGEM Normal [facility] CBC panel Auto (Bld)on 06-28 Erythrocyte distribution width (RBC) [Ratio] 15.6 % High 11.5-15.0 [facility] Comment on above: Order Comment: Speci men Type: BLOOD SPECIMENOrdering Facility: [facility] Address: [address] [place] [address] Performed By: #### 5 8410-2 ####[facility]ORATORYCLIA [id number] [address] [place] Hematocrit (Bld) [Volume fraction] 30.5 % Low 39.0-51.0 [facility] Comment on above: Order Comment: Speci men Type: BLOOD SPECIMENOrdering Facility: [facility] Address: [address] [place] [address] Performed By: #### 5 8410-2 ####[facility] LABORATORYCLIA [id number] [address] STATES OF [facility] Hemoglobin (Bld) [Mass/Vol] 9.4 g/dL Low 13.0-17.0 [facility] Comment on above: Order Comment: Speci men Type: BLOOD SPECIMENOrdering Facility: [facility] Address: [address] [place] [address] Performed By: #### 5 8410-2 ####[facility] LABORATORYCLIA [id number] [address] STATES OF [facility] MCH (RBC) [Entitic mass] 27.8 pg Normal 26.0-34.0 [facility] Comment on above: Order Comment: Speci men Type: BLOOD SPECIMENOrdering Facility: [facility] Address: [address] [place] [address] Performed By: #### 5 8410-2 ####[facility] LABORATORYCLIA [id number] [address] MCHC (RBC) [Mass/Vol] 30.8 g/dL Normal 30.5-36.0 [facility] Comment on above: Order Comment: Speci men Type: BLOOD SPECIMENOrdering Facility: [facility] Address: [address] [place] [address] Performed By: #### 5 8410-2 ####[facility]ORATORYCLIA [id number] [address] [place] MCV (RBC) [Entitic vol] 90.2 fL Normal 80.0-100.0 [facility] Comment on above: Order Comment: Speci men Type: BLOOD SPECIMENOrdering Facility: [facility] Address: [address] [place] [address] Performed By: #### 5 8410-2 ####[facility]ORATORYCLIA [id number] [address] [place] Nucleated RBC (Bld) [#/Vol] 10*3/uL Normal <0.01 [facility] Comment on above: Order Comment: Speci men Type: BLOOD SPECIMENOrdering Facility: [facility] Address: [address] [place] [address] Performed By: #### 5 8410-2 ####[facility]ORATORYCLIA [id number] [address] [place] Platelet mean volume (Bld) [Entitic vol] 9.9 fL Normal 9.0-12.7 [facility] Comment on above: Order Comment: Speci men Type: BLOOD SPECIMENOrdering Facility: [facility] Address: [address] [place] [address] Performed By: #### 5 8410-2 ####[facility]ORATORYCLIA [id number] [address] [place] Platelets (Bld) [#/Vol] 333 10*3/uL Normal 150-400 [facility] Comment on above: Order Comment: Speci men Type: BLOOD SPECIMENOrdering Facility: [facility] Address: [address] [place] [address] Performed By: #### 5 8410-2 ####[facility]ORATORYCLIA [id number] [address] [place] RBC (Bld) [#/Vol] 3.38 10*6/uL Low 4.20-6.00 [facility] Comment on above: Order Comment: Speci men Type: BLOOD SPECIMENOrdering Facility: [facility] Address: [address] [place] [address] Performed By: #### 5 8410-2 ####[facility]ORATORYCLIA [id number] [address] [place] WBC (Bld) [#/Vol] 9.71 10*3/uL Normal 3.70-11.00 [facility] Comment on above: Order Comment: Speci men Type: BLOOD SPECIMENOrdering Facility: [facility] Address: [address] [place] [address] Performed By: #### 5 8410-2 ####[facility] LABORATORYCLIA [id number] [address] CNDSon 06-28-2021 CNDS Normal [facility] CONSULT PROGon 06-28-2021 CONSULT PROG Normal [facility] Magnesium SerPl-mCncon 06-28 Magnesium [Mass/Vol] 2.2 mg/dL Normal 1.7-2.3 [facility] Comment on above: Order Comment: Speci men Type: BLOOD SPECIMENOrdering Facility: [facility] Address: [address] [place] [address] Performed By: #### 2 4321-2, ####[facility]ORATORYCLIA [id number] [address] Vancomycin random [Mass/Vol] on 06-28-2021 Vancomycin [Mass/Vol] 23.0 ug/mL High 10.0-20.0 [facility] Comment on above: Order Comment: Speci men Type: BLOOD SPECIMENOrdering Facility: [facility] Address: [address] [place] [address] Result Comment: Refe rence ranges and high/low indicator flags are provided as general guidelines only. The treating physician must determine appropriate target levels/dosing based on the specific clinical situation. Performed By: #### 4 091-5 ####[facility]ORATORYCLIA [id number] [address] [place] ALLIED HEALTHon 06-27-2021 ALLIED HEALTH Normal [facility] Basic metabolic 2000 panelon 06-27-2021 Anion gap [Moles/Vol] 10 mmol/L Normal 9-18 [facility] Comment on above: Order Comment: Speci men Type: BLOOD SPECIMENOrdering Facility: [facility] Address: [address] [place] [address] Performed By: #### 2 4320-2, ####[facility]ORATORYCLIA [id number] [place] [address] [place] Calcium [Mass/Vol] 8.8 mg/dL Normal 8.5-10.2 [facility] Comment on above: Order Comment: Speci men Type: BLOOD SPECIMENOrdering Facility: [facility] Address: [address] [place] [address] Performed By: #### 2 2, ####[facility]ORATORYCLIA [id number] [place] [address] [place] Chloride [Moles/Vol] 104 mmol/L Normal 97-105 [facility] Comment on above: Order Comment: Speci men Type: BLOOD SPECIMENOrdering Facility: [facility] Address: [address] [place] [address] Performed By: #### 2 4320-06, ####[facility]ORATORYCLIA [id number] [address] [place] CO2 [Moles/Vol] 26 mmol/L Normal 22-30 [facility] Comment on above: Order Comment: Speci men Type: BLOOD SPECIMENOrdering Facility: [facility] Address: [address] [place] [address] Performed By: #### 2 4320-06, ####[facility]ORATORYCLIA [id number] [place] [address] [place] Creatinine [Mass/Vol] 0.57 mg/dL Low 0.73-1.22 [facility] Comment on above: Order Comment: Speci men Type: BLOOD SPECIMENOrdering Facility: [facility] Address: [address] [place] [address] Performed By: #### 2 2, ####[facility]ORATORYCLIA [id number] [place] [address] [place] GFR/1.73 sq M.predicted MDRD (S/P/Bld) [Vol rate/Area] mL/min/{1.73_m2} Normal [facility] Comment on above: Order Comment: Shira feldman Type: BLOOD SPECIMENOrdering Facility: [facility] Address: [address] [phone] Result Comment: >60e GFR (Estimated GFR) Units [...] actual GFR. Performed By: #### 2 4321-2, 78056-8 ####[facility]ORATORYCLIA [id number] [place] [address] [place] Glucose [Mass/Vol] 133 mg/dL High 74-99 [facility] Comment on above: Order Comment: Shira feldman Type: BLOOD SPECIMENOrdering Facility: [facility] Address: [address] [place] [address] Result Comment: The [place] [employer] (ADA) provides guidance for cutoff [...] Standards of Medical Care in Diabetes 2016, [place] [employer]. Diabetes Care. 2016.39(Suppl 1). Performed By: #### 2 4321-2, 60121-4 ####[facility]ORATORYCLIA [id number] [place] [address] [place] Potassium [Moles/Vol] 4.2 mmol/L Normal 3.7-5.1 [facility] Comment on above: Order Comment: Speci men Type: BLOOD SPECIMENOrdering Facility: [facility] Address: [address] [place] [address] Performed By: #### 2 4321-2, ####[facility] LABORATORYCLIA [id number] [address] STATES [facility] Sodium [Moles/Vol] 140 mmol/L Normal 136-144 [facility] Comment on above: Order Comment: Speci men Type: BLOOD SPECIMENOrdering Facility: [facility] Address: [address] [place] [address] Performed By: #### 2 4321-2, ####[facility] LABORATORYCLIA [id number] [address] STATES OF [facility] Urea nitrogen [Mass/Vol] 24 mg/dL Normal 9-24 [facility] Comment on above: Order Comment: Speci men Type: BLOOD SPECIMENOrdering Facility: [facility] Address: [address] [place] [address] Performed By: #### 2 4321-2, ####[facility]ORATORYCLIA [id number] [address] CASE MANAGEMon 06-27-2021 CASE MANAGEM Normal [facility] CBC panel Auto (Bld)on 06-27 Erythrocyte distribution width (RBC) [Ratio] 15.8 % High 11.5-15.0 [facility] Comment on above: Order Comment: Speci men Type: BLOOD SPECIMENOrdering Facility: [facility] Address: [address] [place] [address] Performed By: #### 5 8410-2 ####[facility]ORATORYCLIA [id number] [address] Hematocrit (Bld) [Volume fraction] 31.4 % Low 39.0-51.0 [facility] Comment on above: Order Comment: Speci men Type: BLOOD SPECIMENOrdering Facility: [facility] Address: [address] [place] [address] Performed By: #### 5 8410-2 ####[facility]ORATORYCLIA [id number] [address] Hemoglobin (Bld) [Mass/Vol] 9.3 g/dL Low 13.0-17.0 [facility] Comment on above: Order Comment: Speci men Type: BLOOD SPECIMENOrdering Facility: [facility] Address: [address] [place] [address] Performed By: #### 5 8410-2 ####[facility]ORATORYCLIA [id number] [address] MCH (RBC) [Entitic mass] 27.0 pg Normal 26.0-34.0 [facility] Comment on above: Order Comment: Speci men Type: BLOOD SPECIMENOrdering Facility: [facility] Address: [address] [place] [address] Performed By: #### 5 8410-2 ####[facility]ORATORYCLIA [id number] [address] MCHC (RBC) [Mass/Vol] 29.6 g/dL Low 30.5-36.0 [facility] Comment on above: Order Comment: Speci men Type: BLOOD SPECIMENOrdering Facility: [facility] Address: [address] [place] [address] Performed By: #### 5 8410-2 ####[facility]ORATORYCLIA [id number] [address] STATES [facility] MCV (RBC) [Entitic vol] 91.3 fL Normal 80.0-100.0 [facility] Comment on above: Order Comment: Speci men Type: BLOOD SPECIMENOrdering Facility: [facility] Address: [address] [place] [address] Performed By: #### 5 8410-2 ####[facility]ORATORYCLIA [id number] [address] Nucleated RBC (Bld) [#/Vol] 10*3/uL Normal <0.01 [facility] Comment on above: Order Comment: Speci men Type: BLOOD SPECIMENOrdering Facility: [facility] Address: [address] [place] [address] Performed By: #### 5 8410-2 ####[facility] LABORATORYCLIA [id number] [place] [address] [place] Platelet mean volume (Bld) [Entitic vol] 10.3 fL Normal 9.0-12.7 [facility] Comment on above: Order Comment: Speci men Type: BLOOD SPECIMENOrdering Facility: [facility] Address: [address] [place] [address] Performed By: #### 5 8410-2 ####[facility]ORATORYCLIA [id number] [address] [place] Platelets (Bld) [#/Vol] 359 10*3/uL Normal 150-400 [facility] Comment on above: Order Comment: Speci men Type: BLOOD SPECIMENOrdering Facility: [facility] Address: [address] [place] [address] Performed By: #### 5 8410-2 ####[facility] LABORATORYCLIA [id number] [place] [address] [place] RBC (Bld) [#/Vol] 3.44 10*6/uL Low 4.20-6.00 [facility] Comment on above: Order Comment: Speci men Type: BLOOD SPECIMENOrdering Facility: [facility] Address: [address] [place] [address] Performed By: #### 5 8410-2 ####[facility]ORATORYCLIA [id number] [place] [address] [place] WBC (Bld) [#/Vol] 10.73 10*3/uL Normal 3.70-11.00 [facility] Comment on above: Order Comment: Speci men Type: BLOOD SPECIMENOrdering Facility: [facility] Address: [address] [place] [address] Performed By: #### 5 8410-2 ####[facility]ORATORYCLIA [id number] [place] [address] [place] Magnesium [facility] Magnesium [Mass/Vol] 2.2 mg/dL Normal 1.7-2.3 [facility] Comment on above: Order Comment: Speci men Type: BLOOD SPECIMENOrdering Facility: [facility] Address: [address] [place] [address] Performed By: #### 2 4321-2, 23295-0 ####[facility] LABORATORYCLIA [id number] [address] [place] NT-proBNP [facility]27 Natriuretic peptide.B prohormone N-Terminal [Mass/Vol] 184 pg/mL High <125 [facility] Comment on above: Order Comment: Speci men Type: BLOOD SPECIMENOrdering Facility: [facility] Address: [address] [place] [address] Performed By: #### 3 3762-6 ####[facility] LABORATORYCLIA [id number] [place] [address] [place] [place] NUTRITIONon 06-27-2021 NUTRITION [...] Comment: Speci men Type: BLOOD SPECIMENOrdering Facility: [facility] Address: [address] [place] [address] Performed By: #### 1 9123-9, 97529-4 ####[facility]ATORYCLIA [id number] [address] [place] Calcium [Mass/Vol] 8.7 mg/dL Normal 8.5-10.2 [facility] Comment on above: Order Comment: Speci men Type: BLOOD SPECIMENOrdering Facility: [facility] Address: [address] [place] [address] Performed By: #### 1 9123-9, 03489-7 ####[facility]ORATORYCLIA [id number] [place] [address] [place] Chloride [Moles/Vol] 105 mmol/L Normal 97-105 [facility] Comment on above: Order Comment: Speci men Type: BLOOD SPECIMENOrdering Facility: [facility] Address: [address] [place] [address] Performed By: #### 1 9123-9, 38866-1 ####[facility]ATORYCLIA [id number] [place] [address] [place] CO2 [Moles/Vol] 26 mmol/L Normal 22-30 [facility] Comment on above: Order Comment: Speci men Type: BLOOD SPECIMENOrdering Facility: [facility] Address: [address] [place] [address] Performed By: #### 1 9123-9, 77763-5 ####[facility]ORATORYCLIA [id number] [place] [address] [place] Creatinine [Mass/Vol] 0.56 mg/dL Low 0.73-1.22 [facility] Comment on above: Order Comment: Speci men Type: BLOOD SPECIMENOrdering Facility: [facility] Address: [address] [place] [address] Performed By: #### 1 9123-9, 52174-0 ####[facility]ATORYCLIA [id number] [place] [address] [place] GFR/1.73 sq M.predicted MDRD (S/P/Bld) [Vol rate/Area] mL/min/{1.73_m2} Normal [facility] Comment on above: Order Comment: Speci men Type: BLOOD SPECIMENOrdering Facility: [facility] Address: [address] [phone] Result Comment: >60e GFR (Estimated GFR) Units [...] actual GFR. Performed By: #### 1 9123-9, 53159-2 ####[facility]ENTERCLIA [id number] [place] [address] [place] Glucose [Mass/Vol] 134 mg/dL High 74-99 [facility] Comment on above: Order Comment: Shira feldman Type: BLOOD SPECIMENOrdering Facility: [facility] Address: [address] [place] [address] Result Comment: The [place] [employer] (ADA) provides guidance for cutoff [...] Standards of Medical Care in Diabetes 2016, [place] [employer]. Diabetes Care. 2016.39(Suppl 1). Performed By: #### 1 9123-9, 88974-3 ####[facility]ATORYCLIA [id number] [place] [address] [place] Potassium [Moles/Vol] 3.8 mmol/L Normal 3.7-5.1 [facility] Comment on above: Order Comment: Shira feldman Type: BLOOD SPECIMENOrdering Facility: [facility] Address: [address] [place] [address] Performed By: #### 1 9123-9, 50631-9 ####[facility]ORATORYCLIA [id number] [address] Sodium [Moles/Vol] 140 mmol/L Normal 136-144 [facility] Comment on above: Order Comment: Speci men Type: BLOOD SPECIMENOrdering Facility: [facility] Address: [address] [place] [address] Performed By: #### 1 9123-9, 37080-5 ####[facility]ORATORYCLIA [id number] [address] [place] Urea nitrogen [Mass/Vol] 24 mg/dL Normal 9-24 [facility] Comment on above: Order Comment: Speci men Type: BLOOD SPECIMENOrdering Facility: [facility] Address: [address] [place] [address] Performed By: #### 1 91239, 54986-3 ####[facility]ORATORYCLIA [id number] [address] STATES [facility] CBC panel Auto (Bld)on 06-26 Erythrocyte distribution width (RBC) [Ratio] 15.9 % High 11.5-15.0 [facility] Comment on above: Order Comment: Speci men Type: BLOOD SPECIMENOrdering Facility: [facility] Address: [address] [place] [address] Performed By: #### 5 8410-2 ####[facility]ORATORYCLIA [id number] [address] Hematocrit (Bld) [Volume fraction] 29.8 % Low 39.0-51.0 [facility] Comment on above: Order Comment: Speci men Type: BLOOD SPECIMENOrdering Facility: [facility] Address: [address] [place] [address] Performed By: #### 5 8410-2 ####[facility]ORATORYCLIA [id number] [place] [address] [place] Hemoglobin (Bld) [Mass/Vol] 9.1 g/dL Low 13.0-17.0 [facility] Comment on above: Order Comment: Speci men Type: BLOOD SPECIMENOrdering Facility: [facility] Address: [address] [place] [address] Performed By: #### 5 8410-2 ####[facility]ORATORYCLIA [id number] [address] MCH (RBC) [Entitic mass] 27.8 pg Normal 26.0-34.0 [facility] Comment on above: Order Comment: Speci men Type: BLOOD SPECIMENOrdering Facility: [facility] Address: [address] [place] [address] Performed By: #### 5 8410-2 ####[facility]ORATORYCLIA [id number] [address] [facility] MCHC (RBC) [Mass/Vol] 30.5 g/dL Normal 30.5-36.0 [facility] Comment on above: Order Comment: Speci men Type: BLOOD SPECIMENOrdering Facility: [facility] Address: [address] [place] [address] Performed By: #### 5 8410-2 ####[facility]ORATORYCLIA [id number] [address] MCV (RBC) [Entitic vol] 91.1 fL Normal 80.0-100.0 [facility] Comment on above: Order Comment: Speci men Type: BLOOD SPECIMENOrdering Facility: [facility] Address: [address] [place] [address] Performed By: #### 5 8410-2 ####[facility]ORATORYCLIA [id number] [address] Nucleated RBC (Bld) [#/Vol] 10*3/uL Normal <0.01 [facility] Comment on above: Order Comment: Speci men Type: BLOOD SPECIMENOrdering Facility: [facility] Address: [address] [place] [address] Performed By: #### 5 8410-2 ####[facility]ORATORYCLIA [id number] [address] Platelet mean volume (Bld) [Entitic vol] 10.3 fL Normal 9.0-12.7 [facility] Comment on above: Order Comment: Speci men Type: BLOOD SPECIMENOrdering Facility: [facility] Address: [address] [place] [address] Performed By: #### 5 8410-2 ####[facility]ORATORYCLIA [id number] [address] [place] Platelets (Bld) [#/Vol] 336 10*3/uL Normal 150-400 [facility] Comment on above: Order Comment: Speci men Type: BLOOD SPECIMENOrdering Facility: [facility] Address: [address] [place] [address] Performed By: #### 5 8410-2 ####[facility]ORATORYCLIA [id number] [address] [place] RBC (Bld) [#/Vol] 3.27 10*6/uL Low 4.20-6.00 [facility] Comment on above: Order Comment: Speci men Type: BLOOD SPECIMENOrdering Facility: [facility] Address: [address] [place] [address] Performed By: #### 5 8410-2 ####[facility]ORATORYCLIA [id number] [address] [place] WBC (Bld) [#/Vol] 9.14 10*3/uL Normal 3.70-11.00 [facility] Comment on above: Order Comment: Speci men Type: BLOOD SPECIMENOrdering Facility: [facility] Address: [address] [place] [address] Performed By: #### 5 8410-2 ####[facility]ORATORYCLIA [id number] [address] [facility] CONSULT PROGon 06-26-2021 CONSULT PROG Normal [facility] Magnesium SerPl-mCncon 06-26 Magnesium [Mass/Vol] 2.2 mg/dL Normal 1.7-2.3 [facility] Comment on above: Order Comment: Speci men Type: BLOOD SPECIMENOrdering Facility: [facility] Address: [address] [place] [address] Performed By: #### 1 9123-9, 25616-0 ####[facility]ORATORYCLIA [id number] [address] [facility] NURSING PROGon 06-26-2021 NURSING PROG Normal [facility] NURSING PROG Normal [facility] Basic metabolic 2000 panelon 06-25-2021 Anion gap [Moles/Vol] 8 mmol/L Low 9-18 [facility] Comment on above: Order Comment: Speci men Type: BLOOD SPECIMENOrdering Facility: [facility] Address: [address] [place] [address] Performed By: #### 2 432-2, ####[facility]ORATORYCLIA [id number] [place] [address] [place] Calcium [Mass/Vol] 8.8 mg/dL Normal 8.5-10.2 [facility] Comment on above: Order Comment: Speci men Type: BLOOD SPECIMENOrdering Facility: [facility] Address: [address] [place] [address] Performed By: #### 2 432-2, ####[facility]ORATORYCLIA [id number] [place] [address] [place] Chloride [Moles/Vol] 105 mmol/L Normal 97-105 [facility] Comment on above: Order Comment: Speci men Type: BLOOD SPECIMENOrdering Facility: [facility] Address: [address] [place] [address] Performed By: #### 2 432-2, ####[facility]ORATORYCLIA [id number] [place] [address] [place] CO2 [Moles/Vol] 27 mmol/L Normal 22-30 [facility] Comment on above: Order Comment: Speci men Type: BLOOD SPECIMENOrdering Facility: [facility] Address: [address] [place] [address] Performed By: #### 2 432-, ####[facility] LABORATORYCLIA [id number] [place] [id number] [place] Creatinine [Mass/Vol] 0.59 mg/dL Low 0.73-1.22 [facility] Comment on above: Order Comment: Speci men Type: BLOOD SPECIMENOrdering Facility: [facility] Address: [address] [place] [address] Performed By: #### 2 43205-08, ####[facility]ORATORYCLIA [id number] [address] [place] GFR/1.73 sq M.predicted MDRD (S/P/Bld) [Vol rate/Area] mL/min/{1.73_m2} Normal [facility] Comment on above: Order Comment: Speci men Type: BLOOD SPECIMENOrdering Facility: [facility] Address: [address] [place] [address] Result Comment: >60e GFR (Estimated GFR) Units [...] actual GFR. Performed By: #### 2 43205-08, ####[facility]ORATORYCLIA [id number] [place] [address] [place] Glucose [Mass/Vol] 132 mg/dL High 74-99 [facility] Comment on above: Order Comment: Speci men Type: BLOOD SPECIMENOrdering Facility: [facility] Address: [address] [place], [place] [phone] Result Comment: The [place] [employer] (ADA) provides guidance for cutoff [...] Standards of Medical Care in Diabetes 2016, [place] [employer]. Diabetes Care. 2016.39(Suppl 1). Performed By: #### 2 4320-06, ####[facility] LABORATORYCLIA [id number] [place] [address] [place] Potassium [Moles/Vol] 3.9 mmol/L Normal 3.7-5.1 [facility] Comment on above: Order Comment: Johni men Type: BLOOD SPECIMENOrdering Facility: [facility] Address: [address] [place] [id number] Performed By: #### 2 4320-06, ####[facility] LABORATORYCLIA [id number] [place] [address] [place] Sodium [Moles/Vol] 140 mmol/L Normal 136-144 [facility] Comment on above: Order Comment: Speci men Type: BLOOD SPECIMENOrdering Facility: [facility] Address: [address] Performed By: #### 2 4320-06, ####[facility]ORATORYCLIA [id number] [place] [address] [place] Urea nitrogen [Mass/Vol] 24 mg/dL Normal 9-24 [facility] Comment on above: Order Comment: Speci men Type: BLOOD SPECIMENOrdering Facility: [facility] Address: [address] [place] [address] Performed By: #### 2 4321-2, 78142-9 ####[facility]ORATORYCLIA [id number] [address] [place] CASE MANAGEMon 06-25-2021 CASE MANAGEM Normal [facility] CBC panel Auto (Bld)on 06-25 Erythrocyte distribution width (RBC) [Ratio] 15.9 % High 11.5-15.0 [facility] Comment on above: Order Comment: Speci men Type: BLOOD SPECIMENOrdering Facility: [facility] Address: [address] [place] [address] Performed By: #### 5 8410-2 ####[facility]ORATORYCLIA [id number] [address] [place] Hematocrit (Bld) [Volume fraction] 31.0 % Low 39.0-51.0 [facility] Comment on above: Order Comment: Speci men Type: BLOOD SPECIMENOrdering Facility: [facility] Address: [address] [place] [address] Performed By: #### 5 8410-2 ####[facility]ORATORYCLIA [id number] [address] STATES [facility] Hemoglobin (Bld) [Mass/Vol] 9.4 g/dL Low 13.0-17.0 [facility] Comment on above: Order Comment: Speci men Type: BLOOD SPECIMENOrdering Facility: [facility] Address: [address] [place] [address] Performed By: #### 5 8410-2 ####[facility]ORATORYCLIA [id number] [address] [place] MCH (RBC) [Entitic mass] 28.1 pg Normal 26.0-34.0 [facility] Comment on above: Order Comment: Speci men Type: BLOOD SPECIMENOrdering Facility: [facility] Address: [address] [place] [address] Performed By: #### 5 8410-2 ####[facility]ENTERCLIA [id number] [address] STATES [facility] MCHC (RBC) [Mass/Vol] 30.3 g/dL Low 30.5-36.0 [facility] Comment on above: Order Comment: Speci men Type: BLOOD SPECIMENOrdering Facility: [facility] Address: [address] [place] [address] Performed By: #### 5 8410-2 ####[facility]ORATORYCLIA [id number] [address] MCV (RBC) [Entitic vol] 92.5 fL Normal 80.0-100.0 [facility] Comment on above: Order Comment: Speci men Type: BLOOD SPECIMENOrdering Facility: [facility] Address: [address] [place] [address] Performed By: #### 5 8410-2 ####[facility]ORATORYCLIA [id number] [address] Nucleated RBC (Bld) [#/Vol] 10*3/uL Normal <0.01 [facility] Comment on above: Order Comment: Speci men Type: BLOOD SPECIMENOrdering Facility: [facility] Address: [address] [place] [address] Performed By: #### 5 8410-2 ####[facility]ORATORYCLIA [id number] [address] [place] Platelet mean volume (Bld) [Entitic vol] 10.5 fL Normal 9.0-12.7 [facility] Comment on above: Order Comment: Speci men Type: BLOOD SPECIMENOrdering Facility: [facility] Address: [address] [place] [address] Performed By: #### 5 8410-2 ####[facility]ORATORYCLIA [id number] [address] [place] Platelets (Bld) [#/Vol] 311 10*3/uL Normal 150-400 [facility] Comment on above: Order Comment: Speci men Type: BLOOD SPECIMENOrdering Facility: [facility] Address: [address] [place] [address] Performed By: #### 5 8410-2 ####[facility]ORATORYCLIA [id number] [address] [facility] RBC (Bld) [#/Vol] 3.35 10*6/uL Low 4.20-6.00 [facility] Comment on above: Order Comment: Speci men Type: BLOOD SPECIMENOrdering Facility: [facility] Address: [address] [place] [address] Performed By: #### 5 8410-2 ####[facility]ATORYCLIA [id number] [address] WBC (Bld) [#/Vol] 9.57 10*3/uL Normal 3.70-11.00 [facility] Comment on above: Order Comment: Speci men Type: BLOOD SPECIMENOrdering Facility: [facility] Address: [address] [place] [address] Performed By: #### 5 8410-2 ####[facility]ORATORYCLIA [id number] [address] Magnesium SerPl-mCncon 06-25 Magnesium [Mass/Vol] 2.4 mg/dL High 1.7-2.3 [facility] Comment on above: Order Comment: Speci men Type: BLOOD SPECIMENOrdering Facility: [facility] Address: [address] [place] [address] Performed By: #### 2 4321-2, 43585-9 ####[facility]ORATORYCLIA [id number] [address] Basic metabolic 2000 panelon 06-24-2021 Anion gap [Moles/Vol] 9 mmol/L Normal -18 [facility] Comment on above: Order Comment: Speci men Type: BLOOD SPECIMENOrdering Facility: [facility] Address: [address] [place] [address] Performed By: #### 1 9123-9, 94327-6 ####[facility]ATORYCLIA [id number] [place] [address] [place] Calcium [Mass/Vol] 8.6 mg/dL Normal 8.5-10.2 [facility] Comment on above: Order Comment: Speci men Type: BLOOD SPECIMENOrdering Facility: [facility] Address: [address] [place] [address] Performed By: #### 1 9123-9, 08875-2 ####[facility]ORATORYCLIA [id number] [place] [address] [place] Chloride [Moles/Vol] 103 mmol/L Normal 97-105 [facility] Comment on above: Order Comment: Speci men Type: BLOOD SPECIMENOrdering Facility: [facility] Address: [address] [place] [address] Performed By: #### 1 239, 31652-2 ####[facility]ATORYCLIA [id number] [place] [address] [place] CO2 [Moles/Vol] 26 mmol/L Normal 22-30 [facility] Comment on above: Order Comment: Speci men Type: BLOOD SPECIMENOrdering Facility: [facility] Address: [address] [place] [address] Performed By: #### 1 91239, ####[facility]ORATORYCLIA [id number] [place] [address] [place] Creatinine [Mass/Vol] 0.60 mg/dL Low 0.73-1.22 [facility] Comment on above: Order Comment: Speci men Type: BLOOD SPECIMENOrdering Facility: [facility] Address: [address] [place] [address] Performed By: #### 1 9123-9, 24048-2 ####[facility]ATORYCLIA [id number] [place] [address] [place] GFR/1.73 sq M.predicted MDRD (S/P/Bld) [Vol rate/Area] mL/min/{1.73_m2} Normal [facility] Comment on above: Order Comment: Shira feldman Type: BLOOD SPECIMENOrdering Facility: [facility] Address: [address] [place] [address] Result Comment: >60e GFR (Estimated GFR) Units [...] actual GFR. Performed By: #### 1 9123-9, 50986-2 ####[facility]ORATORYCLIA [id number] [place] [address] [place] Glucose [Mass/Vol] 126 mg/dL High 74-99 [facility] Comment on above: Order Comment: Shira feldman Type: BLOOD SPECIMENOrdering Facility: [facility] Address: [place] [phone] Result Comment: The [place] [employer] (ADA) provides guidance for cutoff [...] Standards of Medical Care in Diabetes 2016, [place] [employer]. Diabetes Care. 2016.39(Suppl 1). Performed By: #### 1 9123-9, 64095-1 ####[facility]ORATORYCLIA [id number] [place] [address] [place] Potassium [Moles/Vol] 3.9 mmol/L Normal 3.7-5.1 [facility] Comment on above: Order Comment: Speci men Type: BLOOD SPECIMENOrdering Facility: [facility] Address: [address] [place] [address] Performed By: #### 1 9123-9, 39787-0 ####[facility]ORATORYCLIA [id number] [place] [address] [place] Sodium [Moles/Vol] 138 mmol/L Normal 136-144 [facility] Comment on above: Order Comment: Speci men Type: BLOOD SPECIMENOrdering Facility: [facility] Address: [address] [place] [address] Performed By: #### 1 9123-9, 06676-7 ####[facility]ORATORYCLIA [id number] [address] [place] Urea nitrogen [Mass/Vol] 24 mg/dL Normal 9-24 [facility] Comment on above: Order Comment: Speci men Type: BLOOD SPECIMENOrdering Facility: [facility] Address: [address] [place] [address] Performed By: #### 1 9123-9, ####[facility]ORATORYCLIA [id number] [address] [place] CASE MANAGEMon 06-24-2021 CASE MANAGEM Normal [facility] CASE MANAGEM Normal [facility] CASE MANAGEM Normal [facility] CBC panel Auto (Bld)on 06-24 Erythrocyte distribution width (RBC) [Ratio] 16.1 % High 11.5-15.0 [facility] Comment on above: Order Comment: Speci men Type: BLOOD SPECIMENOrdering Facility: [facility] Address: [address] [place] [address] Performed By: #### 5 8410-2 ####[facility]ORATORYCLIA [id number] [place] [address] [place] Hematocrit (Bld) [Volume fraction] 31.7 % Low 39.0-51.0 [facility] Comment on above: Order Comment: Speci men Type: BLOOD SPECIMENOrdering Facility: [facility] Address: [address] [place] [address] Performed By: #### 5 8410-2 ####[facility]ORATORYCLIA [id number] [address] [facility] Hemoglobin (Bld) [Mass/Vol] 9.7 g/dL Low 13.0-17.0 [facility] Comment on above: Order Comment: Speci men Type: BLOOD SPECIMENOrdering Facility: [facility] Address: [address] [place] [address] Performed By: #### 5 8410-2 ####[facility] LABORATORYCLIA [id number] [address] [place] [facility] MCH (RBC) [Entitic mass] 28.0 pg Normal 26.0-34.0 [facility] Comment on above: Order Comment: Speci men Type: BLOOD SPECIMENOrdering Facility: [facility] Address: [address] [place] [address] Performed By: #### 5 8410-2 ####[facility] LABORATORYCLIA [id number] [address] MCHC (RBC) [Mass/Vol] 30.6 g/dL Normal 30.5-36.0 [facility] Comment on above: Order Comment: Speci men Type: BLOOD SPECIMENOrdering Facility: [facility] Address: [address] [place] [address] Performed By: #### 5 8410-2 ####[facility]ATORYCLIA [id number] [address] MCV (RBC) [Entitic vol] 91.4 fL Normal 80.0-100.0 [facility] Comment on above: Order Comment: Speci men Type: BLOOD SPECIMENOrdering Facility: [facility] Address: [address] [place] [address] Performed By: #### 5 8410-2 ####[facility]ORATORYCLIA [id number] [address] [place] Nucleated RBC (Bld) [#/Vol] 10*3/uL Normal <0.01 [facility] Comment on above: Order Comment: Speci men Type: BLOOD SPECIMENOrdering Facility: [facility] Address: [address] [place] [address] Performed By: #### 5 8410-2 ####[facility]ORATORYCLIA [id number] [address] [place] Platelet mean volume (Bld) [Entitic vol] 11.0 fL Normal 9.0-12.7 [facility] Comment on above: Order Comment: Speci men Type: BLOOD SPECIMENOrdering Facility: [facility] Address: [address] [place] [address] Performed By: #### 5 8410-2 ####[facility]ATORYCLIA [id number] [address] Platelets (Bld) [#/Vol] 358 10*3/uL Normal 150-400 [facility] Comment on above: Order Comment: Speci men Type: BLOOD SPECIMENOrdering Facility: [facility] Address: [address] [place] [address] Performed By: #### 5 8410-2 ####[facility]ORATORYCLIA [id number] [address] [place] RBC (Bld) [#/Vol] 3.47 10*6/uL Low 4.20-6.00 [facility] Comment on above: Order Comment: Speci men Type: BLOOD SPECIMENOrdering Facility: [facility] Address: [address] [place] [address] Performed By: #### 5 8410-2 ####[facility]ORATORYCLIA [id number] [address] [place] WBC (Bld) [#/Vol] 10.07 10*3/uL Normal 3.70-11.00 [facility] Comment on above: Order Comment: Speci men Type: BLOOD SPECIMENOrdering Facility: [facility] Address: [address] [place] [address] Performed By: #### 5 8410-2 ####[facility]ORATORYCLIA [id number] [place] [address] [place] Magnesium SerPl-mCncon 06-24 Magnesium [Mass/Vol] 2.3 mg/dL Normal 1.7-2.3 [facility] Comment on above: Order Comment: Speci men Type: BLOOD SPECIMENOrdering Facility: [facility] Address: [address] [place] [address] Performed By: #### 1 9123-9, 00482-1 ####[facility]ATORYCLIA [id number] [place] [address] [place] ALLIED HEALTHon 06-23-2021 ALLIED HEALTH Normal [facility] Basic metabolic 2000 panelon 06-23-2021 Anion gap [Moles/Vol] 9 mmol/L Normal 9-18 [facility] Comment on above: Order Comment: Speci men Type: BLOOD SPECIMENOrdering Facility: [facility] Address: [address] [place] [address] Performed By: #### 1 9123-9, 95938-5 ####[facility]ATORYCLIA [id number] [place] [address] [place] Calcium [Mass/Vol] 8.4 mg/dL Low 8.5-10.2 [facility] Comment on above: Order Comment: Speci men Type: BLOOD SPECIMENOrdering Facility: [facility] Address: [address] [place] [address] Performed By: #### 1 9123-9, 03647-8 ####[facility]ORATORYCLIA [id number] [place] [address] [place] Chloride [Moles/Vol] 104 mmol/L Normal 97-105 [facility] Comment on above: Order Comment: Speci men Type: BLOOD SPECIMENOrdering Facility: [facility] Address: [address] [place], [place] [address] [address] Performed By: #### 1 9123-9, 18079-3 ####[facility]ORATORYCLIA [id number] [address] STATES OF [facility] CO2 [Moles/Vol] 26 mmol/L Normal 22-30 [facility] Comment on above: Order Comment: Speci men Type: BLOOD SPECIMENOrdering Facility: [facility] Address: [address] [place] [address] Performed By: #### 1 9123-9, 08343-8 ####[facility]ORATORYCLIA [id number] [address] [place] Creatinine [Mass/Vol] 0.62 mg/dL Low 0.73-1.22 [facility] Comment on above: Order Comment: Speci men Type: BLOOD SPECIMENOrdering Facility: [facility] Address: [address] [place] [address] Performed By: #### 1 9123-9, 24775-0 ####[facility]ORATORYCLIA [id number] [address] [place] GFR/1.73 sq M.predicted MDRD (S/P/Bld) [Vol rate/Area] mL/min/{1.73_m2} Normal [facility] Comment on above: Order Comment: Speci men Type: BLOOD SPECIMENOrdering Facility: [facility] Address: [address] [place] [address] Result Comment: >60e GFR (Estimated GFR) Units [...] actual GFR. Performed By: #### 1 9123-9, 21359-4 ####[facility]ORATORYCLIA [id number] [place] [address] [place] Glucose [Mass/Vol] 111 mg/dL High 74-99 [facility] Comment on above: Order Comment: Speci men Type: BLOOD SPECIMENOrdering Facility: [facility] Address: [address] [place] [address] Result Comment: The [place] [employer] (ADA) provides guidance for cutoff [...] Standards of Medical Care in Diabetes 2016, [place] [employer]. Diabetes Care. 2016.39(Suppl 1). Performed By: #### 1 9123-9, 86396-8 ####[facility]ORATORYCLIA [id number] [place] [address] [place] Potassium [Moles/Vol] 4.1 mmol/L Normal 3.7-5.1 [facility] Comment on above: Order Comment: Speci men Type: BLOOD SPECIMENOrdering Facility: [facility] Address: [address] [place] [address] Performed By: #### 1 9123-9, 12910-7 ####[facility]ORATORYCLIA [id number] [place] [address] [place] Sodium [Moles/Vol] 139 mmol/L Normal 136-144 [facility] Comment on above: Order Comment: Speci men Type: BLOOD SPECIMENOrdering Facility: [facility] Address: [address] [place] [address] Performed By: #### 1 9123-9-2 ####[facility]ORATORYCLIA [id number] [place] [address] [place] Urea nitrogen [Mass/Vol] 26 mg/dL High 9-24 [facility] Comment on above: Order Comment: Speci men Type: BLOOD SPECIMENOrdering Facility: [facility] Address: [address] [place] [address] Performed By: #### 1 9123-9, 32494-7 ####[facility]ORATORYCLIA [id number] [address] OF [facility] CASE MANAGEMon 06-23-2021 CASE MANAGEM Normal [facility] CBC panel Auto (Bld)on 06-23 Erythrocyte distribution width (RBC) [Ratio] 16.0 % High 11.5-15.0 [facility] Comment on above: Order Comment: Speci men Type: BLOOD SPECIMENOrdering Facility: [facility] Address: [address] [place] [address] Performed By: #### 5 8410-2 ####[facility]ORATORYCLIA [id number] [address] STATES OF [facility] Hematocrit (Bld) [Volume fraction] 31.1 % Low 39.0-51.0 [facility] Comment on above: Order Comment: Speci men Type: BLOOD SPECIMENOrdering Facility: [facility] Address: [address] [place] [address] Performed By: #### 5 8410-2 ####[facility]ORATORYCLIA [id number] [place] [address] [place] Hemoglobin (Bld) [Mass/Vol] 9.5 g/dL Low 13.0-17.0 [facility] Comment on above: Order Comment: Speci men Type: BLOOD SPECIMENOrdering Facility: [facility] Address: [address] [place] [address] Performed By: #### 5 8410-2 ####[facility]ORATORYCLIA [id number] [place] [address] [place] MCH (RBC) [Entitic mass] 28.1 pg Normal 26.0-34.0 [facility] Comment on above: Order Comment: Speci men Type: BLOOD SPECIMENOrdering Facility: [facility] Address: [address] [place] [address] Performed By: #### 5 8410-2 ####[facility]ORATORYCLIA [id number] [address] MCHC (RBC) [Mass/Vol] 30.5 g/dL Normal 30.5-36.0 [facility] Comment on above: Order Comment: Speci men Type: BLOOD SPECIMENOrdering Facility: [facility] Address: [address] [place] [address] Performed By: #### 5 8410-2 ####[facility]ORATORYCLIA [id number] [address] MCV (RBC) [Entitic vol] 92.0 fL Normal 80.0-100.0 [facility] Comment on above: Order Comment: Speci men Type: BLOOD SPECIMENOrdering Facility: [facility] Address: [address] [place] [address] Performed By: #### 5 8410-2 ####[facility]ORATORYCLIA [id number] [address] Nucleated RBC (Bld) [#/Vol] 10*3/uL Normal <0.01 [facility] Comment on above: Order Comment: Speci men Type: BLOOD SPECIMENOrdering Facility: [facility] Address: [address] [place] [address] Performed By: #### 5 8410-2 ####[facility]ORATORYCLIA [id number] [address] Platelet mean volume (Bld) [Entitic vol] 11.0 fL Normal 9.0-12.7 [facility] Comment on above: Order Comment: Speci men Type: BLOOD SPECIMENOrdering Facility: [facility] Address: [address] [place] [address] Performed By: #### 5 8410-2 ####[facility]ORATORYCLIA [id number] [place] [address] [place] Platelets (Bld) [#/Vol] 361 10*3/uL Normal 150-400 [facility] Comment on above: Order Comment: Speci men Type: BLOOD SPECIMENOrdering Facility: [facility] Address: [address] [place] [address] Performed By: #### 5 8410-2 ####[facility]ORATORYCLIA [id number] [place] [address] [place] RBC (Bld) [#/Vol] 3.38 10*6/uL Low 4.20-6.00 [facility] Comment on above: Order Comment: Speci men Type: BLOOD SPECIMENOrdering Facility: [facility] Address: [address] [place] [address] Performed By: #### 5 8410-2 ####[facility]ORATORYCLIA [id number] [address] OF [facility] WBC (Bld) [#/Vol] 9.02 10*3/uL Normal 3.70-11.00 [facility] Comment on above: Order Comment: Speci men Type: BLOOD SPECIMENOrdering Facility: [facility] Address: [address] [place] [address] Performed By: #### 5 8410-2 ####[facility]ORATORYCLIA [id number] [address] [place] CONSULT PROGon 06-23-2021 CONSULT PROG Normal [facility] CONSULT PROG Normal [facility] Magnesium SerPl-mCncon 06-23 Magnesium [Mass/Vol] 2.4 mg/dL High 1.7-2.3 [facility] Comment on above: Order Comment: Speci men Type: BLOOD SPECIMENOrdering Facility: [facility] Address: [address] [place] [address] Performed By: #### 1 9123-9, 57873-7 ####[facility]ORATORYCLIA [id number] [address] [place] THERAPY NTon 06-23-2021 THERAPY NT Normal [facility] Vancomycin random [Mass/Vol] on 06-23-2021 Vancomycin [Mass/Vol] 22.8 ug/mL High 10.0-20.0 [facility] Comment on above: Order Comment: Speci men Type: BLOOD SPECIMENOrdering Facility: [facility] Address: [address] [place] [address] Result Comment: Refe rence ranges and high/low indicator flags are provided as general guidelines only. The treating physician must determine appropriate target levels/dosing based on the specific clinical situation. Performed By: #### 4 091-5 ####[facility]ORATORYCLIA [id number] [address] [place] XR MOD BARIUM SWALLOW W SPEE Lore 06-23-2021 XR MOD BARIUM SWALLOW W SPEECH Normal [facility] Basic metabolic 2000 panelon 06-22-2021 Anion gap [Moles/Vol] 6 mmol/L Low 9-18 [facility] Comment on above: Order Comment: Speci men Type: BLOOD SPECIMENOrdering Facility: [facility] Address: [address] [place] [address] Performed By: #### 2 4321-2, 04432-4 ####[facility]ORATORYCLIA [id number] [place] [address] [place] Calcium [Mass/Vol] 8.5 mg/dL Normal 8.5-10.2 [facility] Comment on above: Order Comment: Speci men Type: BLOOD SPECIMENOrdering Facility: [facility] Address: [address] [place] [address] Performed By: #### 2 4321-2, ####[facility]ORATORYCLIA [id number] [place] [address] [place] Chloride [Moles/Vol] 105 mmol/L Normal 97-105 [facility] Comment on above: Order Comment: Speci men Type: BLOOD SPECIMENOrdering Facility: [facility] Address: [address] [place], [place] [address] [address] Performed By: #### 2 4321-2, ####[facility]ORATORYCLIA [id number] [address] [place] CO2 [Moles/Vol] 26 mmol/L Normal 22-30 [facility] Comment on above: Order Comment: Speci men Type: BLOOD SPECIMENOrdering Facility: [facility] Address: [address] [place] [address] Performed By: #### 2 43205-08, ####[facility]ORATORYCLIA [id number] [address] [place] Creatinine [Mass/Vol] 0.56 mg/dL Low 0.73-1.22 [facility] Comment on above: Order Comment: Speci men Type: BLOOD SPECIMENOrdering Facility: [facility] Address: [address] [place] [address] Performed By: #### 2 43205-08, ####[facility]ORATORYCLIA [id number] [address] [place] GFR/1.73 sq M.predicted MDRD (S/P/Bld) [Vol rate/Area] mL/min/{1.73_m2} Normal [facility] Comment on above: Order Comment: Speci men Type: BLOOD SPECIMENOrdering Facility: [facility] Address: [address] [place] [address] Result Comment: >60e GFR (Estimated GFR) Units [...] reflect actual GFR. Performed By: #### 2 ####[facility]ORATORYCLIA [id number] [place] [address] [place] Glucose [Mass/Vol] 120 mg/dL High 74-99 [facility] Comment on above: Order Comment: Speci men Type: BLOOD SPECIMENOrdering Facility: [facility] Address: [address] [place] [address] Result Comment: The [place] [employer] (ADA) provides guidance for cutoff [...] Standards of Medical Care in Diabetes 2016, [place] [employer]. Diabetes Care. 2016.39(Suppl 1). Performed By: #### 2 ####[facility]ORATORYCLIA [id number] [place] [address] [place] Potassium [Moles/Vol] 4.0 mmol/L Normal 3.7-5.1 [facility] Comment on above: Order Comment: Speci men Type: BLOOD SPECIMENOrdering Facility: [facility] Address: [address] [place], [place] [address] Performed By: #### 2 ####[facility]ORATORYCLIA [id number] [place] [id number] [place] Sodium [Moles/Vol] 137 mmol/L Normal 136-144 [facility] Comment on above: Order Comment: Speci men Type: BLOOD SPECIMENOrdering Facility: [facility] Address: [address] [place], [place] [address] Performed By: #### 2 ####[facility]ORATORYCLIA [id number] [address] [place] Urea nitrogen [Mass/Vol] 25 mg/dL High 9-24 [facility] Comment on above: Order Comment: Speci men Type: BLOOD SPECIMENOrdering Facility: [facility] Address: [address] [place] [address] Performed By: #### 2 4321-2, 93151-2 ####[facility]ORATORYCLIA [id number] [address] [place] CASE MANAGEMon 06-22-2021 CASE MANAGEM Normal [facility] CBC panel Auto (Bld)on 06-22 Erythrocyte distribution width (RBC) [Ratio] 16.0 % High 11.5-15.0 [facility] Comment on above: Order Comment: Speci men Type: BLOOD SPECIMENOrdering Facility: [facility] Address: [address] [place] [address] Performed By: #### 5 8410-2 ####[facility]ORATORYCLIA [id number] [address] [place] Hematocrit (Bld) [Volume fraction] 30.5 % Low 39.0-51.0 [facility] Comment on above: Order Comment: Speci men Type: BLOOD SPECIMENOrdering Facility: [facility] Address: [address] [place] [address] Performed By: #### 5 8410-2 ####[facility]ORATORYCLIA [id number] [address] [place] Hemoglobin (Bld) [Mass/Vol] 9.3 g/dL Low 13.0-17.0 [facility] Comment on above: Order Comment: Speci men Type: BLOOD SPECIMENOrdering Facility: [facility] Address: [address] [place] [address] Performed By: #### 5 8410-2 ####[facility]ORATORYCLIA [id number] [address] [place] MCH (RBC) [Entitic mass] 28.4 pg Normal 26.0-34.0 [facility] Comment on above: Order Comment: Speci men Type: BLOOD SPECIMENOrdering Facility: [facility] Address: [address] [place] [address] Performed By: #### 5 8410-2 ####[facility]ORATORYCLIA [id number] [address] MCHC (RBC) [Mass/Vol] 30.5 g/dL Normal 30.5-36.0 [facility] Comment on above: Order Comment: Speci men Type: BLOOD SPECIMENOrdering Facility: [facility] Address: [address] [place] [address] Performed By: #### 5 8410-2 ####[facility]ORATORYCLIA [id number] [address] MCV (RBC) [Entitic vol] 93.3 fL Normal 80.0-100.0 [facility] Comment on above: Order Comment: Speci men Type: BLOOD SPECIMENOrdering Facility: [facility] Address: [address] [place] [address] Performed By: #### 5 8410-2 ####[facility]ATORYCLIA [id number] [address] Nucleated RBC (Bld) [#/Vol] 10*3/uL Normal <0.01 [facility] Comment on above: Order Comment: Speci men Type: BLOOD SPECIMENOrdering Facility: [facility] Address: [address] [place] [address] Performed By: #### 5 8410-2 ####[facility]ATORYCLIA [id number] [address] Platelet mean volume (Bld) [Entitic vol] 11.5 fL Normal 9.0-12.7 [facility] Comment on above: Order Comment: Speci men Type: BLOOD SPECIMENOrdering Facility: [facility] Address: [address] [place] [address] Performed By: #### 5 8410-2 ####[facility]CLIA [id number] [address] [place] Platelets (Bld) [#/Vol] 346 10*3/uL Normal 150-400 [facility] Comment on above: Order Comment: Speci men Type: BLOOD SPECIMENOrdering Facility: [facility] Address: [address] [place] [address] Performed By: #### 5 8410-2 ####[facility]ORATORYCLIA [id number] [address] [place] RBC (Bld) [#/Vol] 3.27 10*6/uL Low 4.20-6.00 [facility] Comment on above: Order Comment: Speci men Type: BLOOD SPECIMENOrdering Facility: [facility] Address: [address] [place] [address] Performed By: #### 5 8410-2 ####[facility]ENTERCLIA [id number] [address] OF [facility] WBC (Bld) [#/Vol] 9.44 10*3/uL Normal 3.70-11.00 [facility] Comment on above: Order Comment: Speci men Type: BLOOD SPECIMENOrdering Facility: [facility] Address: [address] [place] [address] Performed By: #### 5 8410-2 ####[facility]ATORYCLIA [id number] [address] [place] HEMOGLOBIN (HGB)on Hemoglobin (Bld) [Mass/Vol] 9.7 g/dL Low 13.0-17.0 [facility] Comment on above: Order Comment: Speci men Type: BLOOD SPECIMENOrdering Facility: [facility] Address: [address] [place] [address] Performed By: #### H GB ####[facility]ORATORYCLIA [id number] [address] [place] Magnesium SerPl-mCncon 06-22 Magnesium [Mass/Vol] 2.4 mg/dL High 1.7-2.3 [facility] Comment on above: Order Comment: Speci men Type: BLOOD SPECIMENOrdering Facility: [facility] Address: [address] [place] [address] Performed By: #### 2 4321-2, ####[facility]ORATORYCLIA [id number] [address] OF [facility] THERAPY NTon 06-22-2021 THERAPY NT Normal [facility] THERAPY NT Normal [facility] aPTT PPPon 06-22-2021 aPTT Coag (PPP) [Time] 62.3 s High 23.0-32.4 [facility] Comment on above: Order Comment: Speci men Type: BLOOD SPECIMENOrdering Facility: [facility] Address: [address] [place] [address] Performed By: #### 1 4979-9 ####[facility]ORATORYCLIA [id number] [address] [place] ALLIED HEALTHon 06-21-2021 ALLIED HEALTH Normal [facility] Basic metabolic 2000 panelon 06-21-2021 Anion gap [Moles/Vol] 8 mmol/L Low 9-18 [facility] Comment on above: Order Comment: Speci men Type: BLOOD SPECIMENOrdering Facility: [facility] Address: [address] [place] [address] Performed By: #### 2 4321-2, ####[facility]ORATORYCLIA [id number] [place] [address] [place] Calcium [Mass/Vol] 8.2 mg/dL Low 8.5-10.2 [facility] Comment on above: Order Comment: Speci men Type: BLOOD SPECIMENOrdering Facility: [facility] Address: [address] [place] [address] Performed By: #### 2 4321-2, ####[facility] LABORATORYCLIA [id number] [place] [address] [place] Chloride [Moles/Vol] 108 mmol/L High 97-105 [facility] Comment on above: Order Comment: Speci men Type: BLOOD SPECIMENOrdering Facility: [facility] Address: [address] [address] Performed By: #### 2 4321-2, ####[facility]ORATORYCLIA [id number] [place] [address] [place] CO2 [Moles/Vol] 24 mmol/L Normal 22-30 [facility] Comment on above: Order Comment: Speci men Type: BLOOD SPECIMENOrdering Facility: [facility] [facility] [place] Address: [address] [place] [address] Performed By: #### 2 43205-08, ####[facility]ATORYCLIA [id number] [address] [place] Creatinine [Mass/Vol] 0.61 mg/dL Low 0.73-1.22 [facility] Comment on above: Order Comment: Speci men Type: BLOOD SPECIMENOrdering Facility: [facility] [place] Address: [address] [place] [address] Performed By: #### 2 43205-08, ####[facility]ATORYCLIA [id number] [address] [place] GFR/1.73 sq M.predicted MDRD (S/P/Bld) [Vol rate/Area] mL/min/{1.73_m2} Normal [facility] Comment on above: Order Comment: Speci men Type: BLOOD SPECIMENOrdering Facility: [facility] [place] Address: [address] [place] [address] Result Comment: >60e GFR (Estimated GFR) Units [...] actual GFR. Performed By: #### 2 4321-, 44512-9 ####[facility]ATORYCLIA [id number] [place] [address] [place] Glucose [Mass/Vol] 211 mg/dL High 74-99 [facility] Comment on above: Order Comment: Shira feldman Type: BLOOD SPECIMENOrdering Facility: [facility] [place] Address: [address] [phone] Result Comment: The [place] [employer] (ADA) provides guidance for cutoff [...] Standards of Medical Care in Diabetes 2016, [place] [employer]. Diabetes Care. 2016.39(Suppl 1). Performed By: #### 2 432-, ####[facility]ORATORYCLIA [id number] [place] [address] [place] Potassium [Moles/Vol] 4.3 mmol/L Normal 3.7-5.1 [facility] Comment on above: Order Comment: Shira feldman Type: BLOOD SPECIMENOrdering Facility: [facility] [place] Address: [address] [phone] Performed By: #### 2 432-, ####[facility]ORATORYCLIA [id number] [place] [address] [place] Sodium [Moles/Vol] 140 mmol/L Normal 136-144 [facility] Comment on above: Order Comment: Shira feldman Type: BLOOD SPECIMENOrdering Facility: [facility] [place] Address: [address] [address] Performed By: #### 2 4321-2, ####[facility]ORATORYCLIA [id number] [address] STATES [facility] Urea nitrogen [Mass/Vol] 26 mg/dL High 9-24 [facility] Comment on above: Order Comment: Speci men Type: BLOOD SPECIMENOrdering Facility: [facility] [place] Address: [address] [place] [address] Performed By: #### 2 4321-2, ####[facility]ATORYCLIA [id number] [address] CBC panel Auto (Bld)on 06-21 Erythrocyte distribution width (RBC) [Ratio] 16.1 % High 11.5-15.0 [facility] Comment on above: Order Comment: Speci men Type: BLOOD SPECIMENOrdering Facility: [facility] [place] Address: [address] [place] [address] Performed By: #### 5 8410-2 ####[facility]ORATORYCLIA [id number] [address] Hematocrit (Bld) [Volume fraction] 29.7 % Low 39.0-51.0 [facility] Comment on above: Order Comment: Speci men Type: BLOOD SPECIMENOrdering Facility: [facility] [place] Address: [address] [place] [address] Performed By: #### 5 8410-2 ####[facility]ORATORYCLIA [id number] [address] STATES OF [facility] Hemoglobin (Bld) [Mass/Vol] 9.2 g/dL Low 13.0-17.0 [facility] Comment on above: Order Comment: Speci men Type: BLOOD SPECIMENOrdering Facility: [facility] Address: [address] [place] [address] Performed By: #### 5 8410-2 ####[facility]ATORYCLIA [id number] [place] [address] MCH (RBC) [Entitic mass] 28.8 pg Normal 26.0-34.0 [facility] Comment on above: Order Comment: Speci men Type: BLOOD SPECIMENOrdering Facility: [facility] [place] Address: [address] [place] [address] Performed By: #### 5 8410-2 ####[facility]ATORYCLIA [id number] [address] MCHC (RBC) [Mass/Vol] 31.0 g/dL Normal 30.5-36.0 [facility] Comment on above: Order Comment: Speci men Type: BLOOD SPECIMENOrdering Facility: [facility] [place] Address: [address] [place] [address] Performed By: #### 5 8410-2 ####[facility]ORATORYCLIA [id number] [address] MCV (RBC) [Entitic vol] 93.1 fL Normal 80.0-100.0 [facility] Comment on above: Order Comment: Speci men Type: BLOOD SPECIMENOrdering Facility: [facility] [place] Address: [address] [place] [address] Performed By: #### 5 8410-2 ####[facility]ORATORYCLIA [id number] [address] Nucleated RBC (Bld) [#/Vol] 10*3/uL Normal <0.01 [facility] Comment on above: Order Comment: Speci men Type: BLOOD SPECIMENOrdering Facility: [facility] [place] Address: [address] [place] [address] Performed By: #### 5 8410-2 ####[facility]ORATORYCLIA [id number] [address] Platelet mean volume (Bld) [Entitic vol] 11.6 fL Normal 9.0-12.7 [facility] Comment on above: Order Comment: Speci men Type: BLOOD SPECIMENOrdering Facility: [facility] [place] Address: [address] [place] [address] Performed By: #### 5 8410-2 ####[facility]ORATORYCLIA [id number] [address] OF [facility] Platelets (Bld) [#/Vol] 347 10*3/uL Normal 150-400 [facility] Comment on above: Order Comment: Speci men Type: BLOOD SPECIMENOrdering Facility: [facility] [place] Address: [address] [place] [address] Performed By: #### 5 8410-2 ####[facility]ORATORYCLIA [id number] [address] [place] RBC (Bld) [#/Vol] 3.19 10*6/uL Low 4.20-6.00 [facility] Comment on above: Order Comment: Speci men Type: BLOOD SPECIMENOrdering Facility: [facility] [place] Address: [address] [place] [address] Performed By: #### 5 8410-2 ####[facility]ATORYCLIA [id number] [address] OF [facility] WBC (Bld) [#/Vol] 10.29 10*3/uL Normal 3.70-11.00 [facility] Comment on above: Order Comment: Speci men Type: BLOOD SPECIMENOrdering Facility: [facility] [place] Address: [address] [place] [address] Performed By: #### 5 8410-2 ####[facility]ATORYCLIA [id number] [address] CONSULT PROGon 06-21-2021 CONSULT PROG Normal [facility] CONSULT PROG Normal [facility] Magnesium SerPl-mCncon 06-21 Magnesium [Mass/Vol] 2.5 mg/dL High 1.7-2.3 [facility] Comment on above: Order Comment: Speci men Type: BLOOD SPECIMENOrdering Facility: [facility] [place] Address: [address] [place] [address] Performed By: #### 2 4321-2, 60558-3 ####[facility]ORATORYCLIA [id number] [place] [address] [place] NUTRITIONon 06-21-2021 NUTRITION Normal [facility] XR CHEST 1V FRONTALon 2021 XR CHEST 1V FRONTAL Normal [facility] aPTT PPPon 06-21-2021 aPTT Coag (PPP) [Time] 68.5 s High 23.0-32.4 [facility] Comment on above: Order Comment: Speci men Type: BLOOD SPECIMENOrdering Facility: [facility] [place] Address: [address] [place] [address] Performed By: #### 1 4979-9 ####[facility]ORATORYCLIA [id number] [address] STATES OF [facility] aPTT Coag (PPP) [Time] 57.8 s High 23.0-32.4 [facility] Comment on above: Order Comment: Speci men Type: BLOOD SPECIMENOrdering Facility: [facility] [place] Address: [address] [place] [address] Performed By: #### 1 4979-9 ####[facility]ORATORYCLIA [id number] [place] [address] [place] Basic metabolic 2000 panelon 06-20-2021 Anion gap [Moles/Vol] 9 mmol/L Normal 9-18 [facility] Comment on above: Order Comment: Speci men Type: BLOOD SPECIMENOrdering Facility: [facility] [place] Address: [address] [place] [address] Performed By: #### 2 4321-2, 87822-8 ####[facility]ORATORYCLIA [id number] [address] [place] Calcium [Mass/Vol] 8.3 mg/dL Low 8.5-10.2 [facility] Comment on above: Order Comment: Speci men Type: BLOOD SPECIMENOrdering Facility: [facility] [place] Address: [address] [place] [address] Performed By: #### 2 432-2, ####[facility]ATORYCLIA [id number] [place] [address] [place] Chloride [Moles/Vol] 111 mmol/L High 97-105 [facility] Comment on above: Order Comment: Speci men Type: BLOOD SPECIMENOrdering Facility: [facility] [place] Address: [address] [place] [address] Performed By: #### 2 432-2, ####[facility]ORATORYCLIA [id number] [place] [address] [place] CO2 [Moles/Vol] 24 mmol/L Normal 22-30 [facility] Comment on above: Order Comment: Speci men Type: BLOOD SPECIMENOrdering Facility: [facility] [place] Address: [address] [place] [address] Performed By: #### 2 43205-08, ####[facility]ATORYCLIA [id number] [address] [place] Creatinine [Mass/Vol] 0.64 mg/dL Low 0.73-1.22 [facility] Comment on above: Order Comment: Speci men Type: BLOOD SPECIMENOrdering Facility: [facility] [place] Address: [address] [place] [address] Performed By: #### 2 43205-08, ####[facility]ATORYCLIA [id number] [place] [address] [place] GFR/1.73 sq M.predicted MDRD (S/P/Bld) [Vol rate/Area] mL/min/{1.73_m2} Normal [facility] Comment on above: Order Comment: Speci men Type: BLOOD SPECIMENOrdering Facility: [facility] [place] Address: [address] [place] [address] Result Comment: >60e GFR (Estimated GFR) Units [...] actual GFR. Performed By: #### 2 43205-08, ####[facility]ATORYCLIA [id number] [place] [address] [place] Glucose [Mass/Vol] 114 mg/dL High 74-99 [facility] Comment on above: Order Comment: Shira feldman Type: BLOOD SPECIMENOrdering Facility: [facility] [place] Address: [address] [phone] Result Comment: The [place] [employer] (ADA) provides guidance for cutoff [...] Standards of Medical Care in Diabetes 2016, [place] [employer]. Diabetes Care. 2016.39(Suppl 1). Performed By: #### 2 4320-06, ####[facility]ORATORYCLIA [id number] [place] [address] [place] Potassium [Moles/Vol] 4.1 mmol/L Normal 3.7-5.1 [facility] Comment on above: Order Comment: Shira feldman Type: BLOOD SPECIMENOrdering Facility: [facility] [place] Address: [address] [phone] Performed By: #### 2 43205-08, ####[facility]ORATORYCLIA [id number] [place] [address] [place] Sodium [Moles/Vol] 144 mmol/L Normal 136-144 [facility] Comment on above: Order Comment: Speci men Type: BLOOD SPECIMENOrdering Facility: [facility] [place] Address: [address] [place] [address] Performed By: #### 2 4321-2, ####[facility]ORATORYCLIA [id number] [address] STATES OF [facility] Urea nitrogen [Mass/Vol] 27 mg/dL High 9-24 [facility] Comment on above: Order Comment: Speci men Type: BLOOD SPECIMENOrdering Facility: [facility] [place] Address: [address] [place] [address] Performed By: #### 2 432-2, ####[facility]ORATORYCLIA [id number] [address] OF [facility] CASE MANAGEMon 06-20-2021 CASE MANAGEM Normal [facility] CBC panel Auto (Bld)on 06-20 Erythrocyte distribution width (RBC) [Ratio] 15.9 % High 11.5-15.0 [facility] Comment on above: Order Comment: Speci men Type: BLOOD SPECIMENOrdering Facility: [facility] [place] Address: [address] [place] [address] Performed By: #### 5 8410-2 ####[facility]ORATORYCLIA [id number] [address] [place] Hematocrit (Bld) [Volume fraction] 31.0 % Low 39.0-51.0 [facility] Comment on above: Order Comment: Speci men Type: BLOOD SPECIMENOrdering Facility: [facility] [place] Address: [address] [place] [address] Performed By: #### 5 8410-2 ####[facility]ORATORYCLIA [id number] [address] [place] Hemoglobin (Bld) [Mass/Vol] 9.2 g/dL Low 13.0-17.0 [facility] Comment on above: Order Comment: Speci men Type: BLOOD SPECIMENOrdering Facility: [facility] [place] Address: [address] [place] [address] Performed By: #### 5 8410-2 ####[facility]ORATORYCLIA [id number] [address] MCH (RBC) [Entitic mass] 27.4 pg Normal 26.0-34.0 [facility] Comment on above: Order Comment: Speci men Type: BLOOD SPECIMENOrdering Facility: [facility] [place] Address: [address] [place] [address] Performed By: #### 5 8410-2 ####[facility]ORATORYCLIA [id number] [address] MCHC (RBC) [Mass/Vol] 29.7 g/dL Low 30.5-36.0 [facility] Comment on above: Order Comment: Speci men Type: BLOOD SPECIMENOrdering Facility: [facility] [place] Address: [address] [place] [address] Performed By: #### 5 8410-2 ####[facility]ORATORYCLIA [id number] [address] MCV (RBC) [Entitic vol] 92.3 fL Normal 80.0-100.0 [facility] Comment on above: Order Comment: Speci men Type: BLOOD SPECIMENOrdering Facility: [facility] [place] Address: [address] [place] [address] Performed By: #### 5 8410-2 ####[facility]ORATORYCLIA [id number] [address] Nucleated RBC (Bld) [#/Vol] 10*3/uL Normal <0.01 [facility] Comment on above: Order Comment: Speci men Type: BLOOD SPECIMENOrdering Facility: [facility] [place] Address: [address] [place] [address] Performed By: #### 5 8410-2 ####[facility]ORATORYCLIA [id number] [address] Platelet mean volume (Bld) [Entitic vol] 11.5 fL Normal 9.0-12.7 [facility] Comment on above: Order Comment: Speci men Type: BLOOD SPECIMENOrdering Facility: [facility] [place] Address: [address] [place] [address] Performed By: #### 5 8410-2 ####[facility]ORATORYCLIA [id number] [address] [place] Platelets (Bld) [#/Vol] 343 10*3/uL Normal 150-400 [facility] Comment on above: Order Comment: Speci men Type: BLOOD SPECIMENOrdering Facility: [facility] [place] Address: [address] [place] [address] Performed By: #### 5 8410-2 ####[facility]ORATORYCLIA [id number] [address] RBC (Bld) [#/Vol] 3.36 10*6/uL Low 4.20-6.00 [facility] Comment on above: Order Comment: Speci men Type: BLOOD SPECIMENOrdering Facility: [facility] [place] Address: [address] [place] [address] Performed By: #### 5 8410-2 ####[facility]ATORYCLIA [id number] [address] WBC (Bld) [#/Vol] 10.71 10*3/uL Normal 3.70-11.00 [facility] Comment on above: Order Comment: Speci men Type: BLOOD SPECIMENOrdering Facility: [facility] [place] Address: [address] [place] [address] Performed By: #### 5 8410-2 ####[facility]ATORYCLIA [id number] [address] CONSULT PROGon 06-20-2021 CONSULT PROG Normal [facility] HEMOGLOBIN (HGB)on 2 Hemoglobin (Bld) [Mass/Vol] 9.7 g/dL Low 13.0-17.0 [facility] Comment on above: Order Comment: Speci men Type: BLOOD SPECIMENOrdering Facility: [facility] [place] Address: [address] [place] [address] Performed By: #### H GB ####[facility]ORATORYCLIA [id number] [address] [place] Magnesium SerPl-mCncon 06-20 Magnesium [Mass/Vol] 2.5 mg/dL High 1.7-2.3 [facility] Comment on above: Order Comment: Speci men Type: BLOOD SPECIMENOrdering Facility: [facility] Address: [address] [place] [address] Performed By: #### 2 4321-2, 63983-3 ####[facility]ORATORYCLIA [id number] [address] [place] NURSING PROGon 06-20-2021 NURSING PROG Normal [facility] THERAPY NTon 06-20-2021 THERAPY NT Normal [facility] aPTT PPPon 06-20-2021 aPTT Coag (PPP) [Time] 93.5 s High 23.0-32.4 [facility] Comment on above: Order Comment: Speci men Type: BLOOD SPECIMENOrdering Facility: [facility] Address: [address] [place] [address] Performed By: #### 1 4979-9 ####[facility]ORATORYCLIA [id number] [address] STATES [facility] aPTT Coag (PPP) [Time] 47.1 s High 23.0-32.4 [facility] Comment on above: Order Comment: Speci men Type: BLOOD SPECIMENOrdering Facility: [facility] Address: [address] [place] [address] Performed By: #### 1 4979-9 ####[facility]ORATORYCLIA [id number] [place] [address] [place] Basic metabolic 2000 panelon 06-19-2021 Anion gap [Moles/Vol] 7 mmol/L Low 9-18 [facility] Comment on above: Order Comment: Speci men Type: BLOOD SPECIMENOrdering Facility: [facility] Address: [address] [place] [address] Performed By: #### 2 4321-2 ####[facility]ORATORYCLIA [id number] [place] [address] [place] Calcium [Mass/Vol] 8.1 mg/dL Low 8.5-10.2 [facility] Comment on above: Order Comment: Speci men Type: BLOOD SPECIMENOrdering Facility: [facility] Address: [address] [place] [address] Performed By: #### 2 4321-2 ####[facility]ORATORYCLIA [id number] [place] [address] [place] Chloride [Moles/Vol] 111 mmol/L High 97-105 [facility] Comment on above: Order Comment: Speci men Type: BLOOD SPECIMENOrdering Facility: [facility] Address: [address] [place] [address] Performed By: #### 2 4321-2 ####[facility]ATORYCLIA [id number] [place] [address] [place] CO2 [Moles/Vol] 24 mmol/L Normal 22-30 [facility] Comment on above: Order Comment: Speci men Type: BLOOD SPECIMENOrdering Facility: [facility] Address: [address] [place] [address] Performed By: #### 2 4321-2 ####[facility]ATORYCLIA [id number] [place] [address] [place] Creatinine [Mass/Vol] 0.71 mg/dL Low 0.73-1.22 [facility] Comment on above: Order Comment: Speci men Type: BLOOD SPECIMENOrdering Facility: [facility] Address: [address] [place] [address] Performed By: #### 2 4321-2 ####[facility]ORATORYCLIA [id number] [place] [address] [place] GFR/1.73 sq M.predicted MDRD (S/P/Bld) [Vol rate/Area] mL/min/{1.73_m2} Normal [facility] Comment on above: Order Comment: Shira feldman Type: BLOOD SPECIMENOrdering Facility: [facility] Address: [address] [place] [address] Result Comment: >60e GFR (Estimated GFR) Units [...] Performed By: #### 2 4321-2 ####[facility]CL[facility] [id number] [place] [address] [place] Glucose [Mass/Vol] 110 mg/dL High 74-99 [facility] Comment on above: Order Comment: Shira feldman Type: BLOOD SPECIMENOrdering Facility: [facility] Address: [address] [place] [address] Result Comment: The [place] [employer] (ADA) provides guidance for cutoff [...] Standards of Medical Care in Diabetes 2016, [place] [employer]. Diabetes Care. 2016.39(Suppl 1). Performed By: #### 2 4321-2 ####[facility]ATORYCLIA [id number] [address] [place] Potassium [Moles/Vol] 3.7 mmol/L Normal 3.7-5.1 [facility] Comment on above: Order Comment: Speci men Type: BLOOD SPECIMENOrdering Facility: [facility] Address: [address] [place] [address] Performed By: #### 2 4321-2 ####[facility]ORATORYCLIA [id number] [address] [place] Sodium [Moles/Vol] 142 mmol/L Normal 136-144 [facility] Comment on above: Order Comment: Speci men Type: BLOOD SPECIMENOrdering Facility: [facility] Address: [address] [place] [address] Performed By: #### 2 4321-2 ####[facility]ORATORYCLIA [id number] [address] STATES [facility] Urea nitrogen [Mass/Vol] 26 mg/dL High 9-24 [facility] Comment on above: Order Comment: Speci men Type: BLOOD SPECIMENOrdering Facility: [facility] Address: [address] [place] [address] Performed By: #### 2 4321-2 ####[facility]ATORYCLIA [id number] [address] STATES OF [facility] CBC panel Auto (Bld)on 06-19 Erythrocyte distribution width (RBC) [Ratio] 15.7 % High 11.5-15.0 [facility] Comment on above: Order Comment: Speci men Type: BLOOD SPECIMENOrdering Facility: [facility] Address: [address] [place] [address] Performed By: #### 5 8410-2 ####[facility]ATORYCLIA [id number] [address] Hematocrit (Bld) [Volume fraction] 30.9 % Low 39.0-51.0 [facility] Comment on above: Order Comment: Speci men Type: BLOOD SPECIMENOrdering Facility: [facility] Address: [address] [place] [address] Performed By: #### 5 8410-2 ####[facility] LABORATORYCLIA [id number] [address] [facility] Hemoglobin (Bld) [Mass/Vol] 9.5 g/dL Low 13.0-17.0 [facility] Comment on above: Order Comment: Speci men Type: BLOOD SPECIMENOrdering Facility: [facility] Address: [address] [place] [address] Performed By: #### 5 8410-2 ####[facility] LABORATORYCLIA [id number] [address] MCH (RBC) [Entitic mass] 28.4 pg Normal 26.0-34.0 [facility] Comment on above: Order Comment: Speci men Type: BLOOD SPECIMENOrdering Facility: SELECT [facility] Address: [address] [place] [address] Performed By: #### 5 8410-2 ####[facility]ORATORYCLIA [id number] [address] STATES OF [facility] MCHC (RBC) [Mass/Vol] 30.7 g/dL Normal 30.5-36.0 [facility] Comment on above: Order Comment: Speci men Type: BLOOD SPECIMENOrdering Facility: [facility] Address: [address] [place] [address] Performed By: #### 5 8410-2 ####[facility]ORATORYCLIA [id number] [address] STATES [facility] MCV (RBC) [Entitic vol] 92.2 fL Normal 80.0-100.0 [facility] Comment on above: Order Comment: Speci men Type: BLOOD SPECIMENOrdering Facility: [facility] Address: [address] [place] [address] Performed By: #### 5 8410-2 ####[facility]ORATORYCLIA [id number] [address] Nucleated RBC (Bld) [#/Vol] 10*3/uL Normal <0.01 [facility] Comment on above: Order Comment: Speci men Type: BLOOD SPECIMENOrdering Facility: [facility] Address: [address] [place] [address] Performed By: #### 5 8410-2 ####[facility]ORATORYCLIA [id number] [place] [address] [place] Platelet mean volume (Bld) [Entitic vol] 11.7 fL Normal 9.0-12.7 [facility] Comment on above: Order Comment: Speci men Type: BLOOD SPECIMENOrdering Facility: [facility] Address: [address] [place] [address] Performed By: #### 5 8410-2 ####[facility]ORATORYCLIA [id number] [address] [place] Platelets (Bld) [#/Vol] 323 10*3/uL Normal 150-400 [facility] Comment on above: Order Comment: Speci men Type: BLOOD SPECIMENOrdering Facility: [facility] Address: [address] [place] [address] Performed By: #### 5 8410-2 ####[facility]ORATORYCLIA [id number] [place] [address] [place] RBC (Bld) [#/Vol] 3.35 10*6/uL Low 4.20-6.00 [facility] Comment on above: Order Comment: Speci men Type: BLOOD SPECIMENOrdering Facility: [facility] Address: [address] [place] [address] Performed By: #### 5 8410-2 ####[facility]ORATORYCLIA [id number] [address] [place] WBC (Bld) [#/Vol] 9.53 10*3/uL Normal 3.70-11.00 [facility] Comment on above: Order Comment: Speci men Type: BLOOD SPECIMENOrdering Facility: [facility] Address: [address] [place] [address] Performed By: #### 5 8410-2 ####[facility]ORATORYCLIA [id number] [address] HEMOGLOBIN (HGB)on Hemoglobin (Bld) [Mass/Vol] 9.7 g/dL Low 13.0-17.0 [facility] Comment on above: Order Comment: Speci men Type: BLOOD SPECIMENOrdering Facility: [facility] Address: [address] [place] [address] Performed By: #### H GB ####[facility]ORATORYCLIA [id number] [address] Magnesium SerPl-mCncon 06-19 Magnesium [Mass/Vol] 2.5 mg/dL High 1.7-2.3 [facility] Comment on above: Order Comment: Speci men Type: BLOOD SPECIMENOrdering Facility: [facility] Address: [address] [place] [address] Performed By: #### 1 9123-9, 2777-1 ####[facility]ORATORYCLIA [id number] [address] NURSING PROGon 06-19-2021 NURSING PROG Normal [facility] Phosphate SerPl-mCncon 06-19 Phosphate [Mass/Vol] 2.6 mg/dL Low 2.7-4.8 [facility] Comment on above: Order Comment: Speci men Type: BLOOD SPECIMENOrdering Facility: [facility] Address: [address] [place] [address] Performed By: #### 1 9123-9, 2777-1 ####[facility]ORATORYCLIA [id number] [address] aPTT PPPon 06-19-2021 aPTT Coag (PPP) [Time] 61.9 s High 23.0-32.4 [facility] Comment on above: Order Comment: Speci men Type: BLOOD SPECIMENOrdering Facility: [facility] Address: [address] [address] Performed By: #### 1 4979-9 ####[facility]ORATORYCLIA [id number] [address] aPTT Coag (PPP) [Time] 68.6 s High 23.0-32.4 [facility] Comment on above: Order Comment: Speci men Type: BLOOD SPECIMENOrdering Facility: [facility] Address: [address] [place] [address] Performed By: #### 1 4979-9 ####[facility] LABORATORYCLIA [id number] [address] STATES OF [facility] aPTT Coag (PPP) [Time] 83.2 s High 23.0-32.4 [facility] Comment on above: Order Comment: Speci men Type: BLOOD SPECIMENOrdering Facility: [facility] Address: [address] [place] [address] Performed By: #### 1 4979-9 ####[facility]ORATORYCLIA [id number] [place] [address] [place] Basic metabolic 2000 panelon 06-18-2021 Anion gap [Moles/Vol] 7 mmol/L Low 9-18 [facility] Comment on above: Order Comment: Speci men Type: BLOOD SPECIMENOrdering Facility: [facility] Address: [address] [place] [address] Performed By: #### 2 4321-2, , 2776-05 ####[facility] LABORATORYCLIA [id number] [address] [place] Calcium [Mass/Vol] 8.2 mg/dL Low 8.5-10.2 [facility] Comment on above: Order Comment: Speci men Type: BLOOD SPECIMENOrdering Facility: [facility] Address: [address] [place] [address] Performed By: #### 2 4321-2, , 27711-04 ####[facility]ORATORYCLIA [id number] [place] [address] [place] Chloride [Moles/Vol] 115 mmol/L High 97-105 [facility] Comment on above: Order Comment: Speci men Type: BLOOD SPECIMENOrdering Facility: [facility] Address: [address] [place] [address] Performed By: #### 2 4321-2, 72329-0, 2776- ####[facility]ORATORYCLIA [id number] [address] [place] CO2 [Moles/Vol] 23 mmol/L Normal 22-30 [facility] Comment on above: Order Comment: Speci men Type: BLOOD SPECIMENOrdering Facility: [facility] Address: [address] [place] [address] Performed By: #### 2 4321-2, , 2776-05 ####[facility] [id number] [address] [place] Creatinine [Mass/Vol] 0.70 mg/dL Low 0.73-1.22 [facility] Comment on above: Order Comment: Speci men Type: BLOOD SPECIMENOrdering Facility: [facility] Address: [address] [place] [address] Performed By: #### 2 4321-2, , 2776-05 ####[facility]ORATORYCLIA [id number] [place] [address] [place] GFR/1.73 sq M.predicted MDRD (S/P/Bld) [Vol rate/Area] mL/min/{1.73_m2} Normal [facility] Comment on above: Order Comment: Speci men Type: BLOOD SPECIMENOrdering Facility: [facility] Address: [address] [place] [address] Result Comment: >60e GFR (Estimated GFR) Units [...] #### 2 4321-2, , 2776-05 ####[facility] LABORATORYCLIA [id number] [place] [address] [place] Glucose [Mass/Vol] 105 mg/dL High 74-99 [facility] Comment on above: Order Comment: Shira feldman Type: BLOOD SPECIMENOrdering Facility: [facility] Address: [address] [place], [place] [id number] Result Comment: The [place] [employer] (ADA) provides guidance for cutoff [...] Standards of Medical Care in Diabetes 2016, [place] [employer]. Diabetes Care. 2016.39(Suppl 1). Performed By: #### 2 4321-2, , 2776-05 ####[facility]ORATORYCLIA [id number] [place] [address] [place] Potassium [Moles/Vol] 4.1 mmol/L Normal 3.7-5.1 [facility] Comment on above: Order Comment: Shira feldman Type: BLOOD SPECIMENOrdering Facility: [facility] Address: [address] [place] [address] Performed By: #### 2 4321-2, , 2776-05 ####[facility]ORATORYCLIA [id number] [place] [address] [place] Sodium [Moles/Vol] 145 mmol/L High 136-144 [facility] Comment on above: Order Comment: Speci men Type: BLOOD SPECIMENOrdering Facility: [facility] Address: [address] [place] [address] Performed By: #### 2 4321-2, 92789-4, 2776- ####[facility]ORATORYCLIA [id number] [address] [place] Urea nitrogen [Mass/Vol] 27 mg/dL High 9-24 [facility] Comment on above: Order Comment: Speci men Type: BLOOD SPECIMENOrdering Facility: [facility] Address: [address] [place] [address] Performed By: #### 2 4321-2, , 2776-05 ####[facility] LABORATORYCLIA [id number] [address] STATES OF [facility] CALCIUM IONIZED Bon 06-18-19 Calcium.ionized (BldV) [Mass/Vol] 1.22 mmol/L Normal 1.08-1.30 [facility] Comment on above: Order Comment: Speci men Type: BLOOD SPECIMENOrdering Facility: [facility] Address: [address] [place] [address] Performed By: #### I CA ####[facility]ORATORYCLIA [id number] [address] Calcium.ionized adjusted to pH 7.4 (Bld) [Moles/Vol] 1.23 mmol/L Normal 1.08-1.30 [facility] Comment on above: Order Comment: Speci men Type: BLOOD SPECIMENOrdering Facility: [facility] Address: [address] [place] [address] Performed By: #### I CA ####[facility] LABORATORYCLIA [id number] [address] [place] CBC panel Auto (Bld)on 06-18 Erythrocyte distribution width (RBC) [Ratio] 15.8 % High 11.5-15.0 [facility] Comment on above: Order Comment: Speci men Type: BLOOD SPECIMENOrdering Facility: [facility] Address: [address] [place] [address] Performed By: #### 5 8410-2 ####[facility]ORATORYCLIA [id number] [address] Hematocrit (Bld) [Volume fraction] 29.5 % Low 39.0-51.0 [facility] Comment on above: Order Comment: Speci men Type: BLOOD SPECIMENOrdering Facility: [facility] Address: [address] [place] [address] Performed By: #### 5 8410-2 ####[facility]ORATORYCLIA [id number] [address] Hemoglobin (Bld) [Mass/Vol] 8.8 g/dL Low 13.0-17.0 [facility] Comment on above: Order Comment: Speci men Type: BLOOD SPECIMENOrdering Facility: [facility] Address: [address] [place] [address] Performed By: #### 5 8410-2 ####[facility]ORATORYCLIA [id number] [address] MCH (RBC) [Entitic mass] 27.4 pg Normal 26.0-34.0 [facility] Comment on above: Order Comment: Speci men Type: BLOOD SPECIMENOrdering Facility: [facility] Address: [address] [place] [address] Performed By: #### 5 8410-2 ####[facility] LABORATORYCLIA [id number] [address] [place] MCHC (RBC) [Mass/Vol] 29.8 g/dL Low 30.5-36.0 [facility] Comment on above: Order Comment: Speci men Type: BLOOD SPECIMENOrdering Facility: [facility] Address: [address] [place] [address] Performed By: #### 5 8410-2 ####[facility]ORATORYCLIA [id number] [address] STATES OF [facility] MCV (RBC) [Entitic vol] 91.9 fL Normal 80.0-100.0 [facility] Comment on above: Order Comment: Speci men Type: BLOOD SPECIMENOrdering Facility: [facility] Address: [address] [place] [address] Performed By: #### 5 8410-2 ####[facility]ORATORYCLIA [id number] [address] Nucleated RBC (Bld) [#/Vol] 10*3/uL Normal <0.01 [facility] Comment on above: Order Comment: Speci men Type: BLOOD SPECIMENOrdering Facility: [facility] Address: [address] [place] [address] Performed By: #### 5 8410-2 ####[facility]ORATORYCLIA [id number] [address] Platelet mean volume (Bld) [Entitic vol] 11.9 fL Normal 9.0-12.7 [facility] Comment on above: Order Comment: Speci men Type: BLOOD SPECIMENOrdering Facility: [facility] Address: [address] [place] [address] Performed By: #### 5 8410-2 ####[facility]ORATORYCLIA [id number] [address] Platelets (Bld) [#/Vol] 291 10*3/uL Normal 150-400 [facility] Comment on above: Order Comment: Speci men Type: BLOOD SPECIMENOrdering Facility: [facility] Address: [address] [place] [address] Performed By: #### 5 8410-2 ####[facility]ORATORYCLIA [id number] [address] [place] RBC (Bld) [#/Vol] 3.21 10*6/uL Low 4.20-6.00 [facility] Comment on above: Order Comment: Speci men Type: BLOOD SPECIMENOrdering Facility: [facility] Address: [address] [place] [address] Performed By: #### 5 8410-2 ####[facility]ORATORYCLIA [id number] [address] WBC (Bld) [#/Vol] 10.19 10*3/uL Normal 3.70-11.00 [facility] Comment on above: Order Comment: Speci men Type: BLOOD SPECIMENOrdering Facility: [facility] Address: [address] [place] [address] Performed By: #### 5 8410-2 ####[facility]ORATORYCLIA [id number] [address] FERRITIN BLDon 06-18-2021 Ferritin [Mass/Vol] 600.9 ng/mL High 30.3-565.7 [facility] Comment on above: Order Comment: Speci men Type: BLOOD SPECIMENOrdering Facility: [facility] Address: [address] [place] [address] Performed By: #### S ERFOL, IRON, FERR ####[facility]ORATORYCLIA [id number] [address] FOLATE SERUMon 06-18-2021 Folate [Mass/Vol] 14.3 ng/mL Normal >4.7 [facility] Comment on above: Order Comment: Speci men Type: BLOOD SPECIMENOrdering Facility: [facility] Address: [address] [place] [address] Performed By: #### S ERFOL, IRON, FERR ####[facility]ORATORYCLIA [id number] [address] Gas and Carbon monoxide pane l (BldV)on 06-18-2021 Base excess Calc (BldV) [Moles/Vol] 0.5 mmol/L Normal 0-2 [facility] Comment on above: Order Comment: Speci men Type: VENOUS BLOOD SPECIMENOrdering Facility: [facility] Address: [address] [place] [address] Performed By: #### 2 4344-4 ####[facility]ORATORYCLIA [id number] [address] Body temperature 97.34 [degF] Normal [facility] Comment on above: Order Comment: Speci men Type: VENOUS BLOOD SPECIMENOrdering Facility: [facility] Address: [address] [place] [address] Performed By: #### 2 4344-4 ####[facility]ORATORYCLIA [id number] [address] CALCIUM IONIZED, PH CORRECTED 1.26 mmol/L Normal 1.08-1.30 [facility] Comment on above: Order Comment: Speci men Type: VENOUS BLOOD SPECIMENOrdering Facility: [facility] Address: [address] [place] [address] Performed By: #### 2 4344-4 ####[facility]ORATORYCLIA [id number] [address] Calcium.ionized (BldV) [Mass/Vol] 1.25 mmol/L Normal 1.08-1.30 [facility] Comment on above: Order Comment: Speci men Type: VENOUS BLOOD SPECIMENOrdering Facility: [facility] Address: [address] [place] [address] Performed By: #### 2 4344-4 ####[facility]ORATORYCLIA [id number] [address] OF [facility] Carboxyhemoglobin (BldV) [Mass fraction] 1.5 % Normal 0.0-2.0 [facility] Comment on above: Order Comment: Speci men Type: VENOUS BLOOD SPECIMENOrdering Facility: [facility] Address: [address] [place] [address] Result Comment: Carb oxyhemoglobin Reference Range for Smokers: 2.0-8.0% Performed By: #### 2 4344-4 ####[facility]ORATORYCLIA [id number] [place] [address] [place] CO2 (BldV) [Partial pressure] 38 mm[Hg] Low 42-55 [facility] Comment on above: Order Comment: Speci men Type: VENOUS BLOOD SPECIMENOrdering Facility: [facility] Address: [address] [place] [address] Performed By: #### 2 4344-4 ####[facility]ORATORYCLIA [id number] [place] [address] [place] CO2 [Moles/Vol] 22.9 mmol/L Low 25-29 [facility] Comment on above: Order Comment: Speci men Type: VENOUS BLOOD SPECIMENOrdering Facility: [facility] Address: [address] [place] [address] Performed By: #### 2 4344-4 ####[facility]ORATORYCLIA [id number] [address] [place] CO2 adjusted to patient's actual temperature (BldV) [Partial pressure] 37 mmHg Low 42-55 [facility] Comment on above: Order Comment: Speci men Type: VENOUS BLOOD SPECIMENOrdering Facility: [facility] Address: [address] [place] [address] Performed By: #### 2 4344-4 ####[facility]ORATORYCLIA [id number] [place] [address] [place] Glucose [Mass/Vol] 103 mg/dL Normal 60-105 [facility] Comment on above: Order Comment: Speci men Type: VENOUS BLOOD SPECIMENOrdering Facility: [facility] Address: [address] [place] [address] Performed By: #### 2 4344-4 ####[facility]ORATORYCLIA [id number] [place] [address] [place] HCO3 (Bld) [Moles/Vol] 24.4 mmol/L Normal 24-28 [facility] Comment on above: Order Comment: Speci men Type: VENOUS BLOOD SPECIMENOrdering Facility: [facility] Address: [address] [place] [address] Performed By: #### 2 4344-4 ####[facility]ORATORYCLIA [id number] [address] OF [place] Hematocrit (Bld) [Volume fraction] 28.7 % Low 39.0-51.0 [facility] Comment on above: Order Comment: Speci men Type: VENOUS BLOOD SPECIMENOrdering Facility: [facility] Address: [address] [place] [address] Performed By: #### 2 4344-4 ####[facility]ORATORYCLIA [id number] [address] OF [place] Hemoglobin (Bld) [Mass/Vol] 9.3 g/dL Low 13.0-17.0 [facility] Comment on above: Order Comment: Speci men Type: VENOUS BLOOD SPECIMENOrdering Facility: [facility] Address: [address] [place] [address] Performed By: #### 2 4344-4 ####[facility]ORATORYCLIA [id number] [address] Methemoglobin (Bld) [Mass fraction] % Normal 0.0-1.5 [facility] Comment on above: Order Comment: Speci men Type: VENOUS BLOOD SPECIMENOrdering Facility: [facility] Address: [address] [place] [address] Performed By: #### 2 4344-4 ####[facility]ORATORYCLIA [id number] [address] OF [place] O2 THERAPY Ventilator Normal [facility] Comment on above: Order Comment: Speci men Type: VENOUS BLOOD SPECIMENOrdering Facility: [facility] Address: [address] [place] [address] Performed By: #### 2 4344-4 ####[facility]ORATORYCLIA [id number] [address] Oxygen (BldV) [Partial pressure] 37 mm[Hg] Normal 35-45 [facility] Comment on above: Order Comment: Speci men Type: VENOUS BLOOD SPECIMENOrdering Facility: [facility] Address: [address] [address] Performed By: #### 2 4344-4 ####[facility]ORATORYCLIA [id number] [address] OF [facility] Oxygen adjusted to patient's actual temperature (BldV) [Partial pressure] 35.1 mmHg Normal 35-45 [facility] Comment on above: Order Comment: Speci men Type: VENOUS BLOOD SPECIMENOrdering Facility: [facility] Address: [address] [place] [address] Performed By: #### 2 4344-4 ####[facility] LABORATORYCLIA [id number] [address] Oxygen saturation in Blood 67.1 % Normal 60-85 [facility] Comment on above: Order Comment: Speci men Type: VENOUS BLOOD SPECIMENOrdering Facility: [facility] Address: [address] [place] [address] Performed By: #### 2 4344-4 ####[facility]ORATORYCLIA [id number] [address] Oxyhemoglobin (BldV) [Mass fraction] 66 % Normal 60-85 [facility] Comment on above: Order Comment: Speci men Type: VENOUS BLOOD SPECIMENOrdering Facility: [facility] Address: [address] [place] [address] Performed By: #### 2 4344-4 ####[facility]ORATORYCLIA [id number] [address] [place] pH (BldV) 7.42 [pH] Normal 7.32-7.42 [facility] Comment on above: Order Comment: Speci men Type: VENOUS BLOOD SPECIMENOrdering Facility: [facility] Address: [address] [place] [address] Performed By: #### 2 4344-4 ####[facility] LABORATORYCLIA [id number] [address] [place] pH adjusted to patient's actual temperature (BldV) 7.43 High 7.32-7.42 [facility] Comment on above: Order Comment: Speci men Type: VENOUS BLOOD SPECIMENOrdering Facility: [facility] Address: [address] [place] [address] Performed By: #### 2 4344-4 ####[facility]ORATORYCLIA [id number] [address] [place] Potassium [Moles/Vol] 4.0 mmol/L Normal 3.5-5.0 [facility] Comment on above: Order Comment: Speci men Type: VENOUS BLOOD SPECIMENOrdering Facility: [facility] Address: [address] [place] [address] Performed By: #### 2 4344-4 ####[facility]ORATORYCLIA [id number] [address] [place] [facility] Sodium [Moles/Vol] 146 mmol/L High 136-144 [facility] Comment on above: Order Comment: Speci men Type: VENOUS BLOOD SPECIMENOrdering Facility: [facility] Address: [address] [place] [address] Performed By: #### 2 4344-4 ####[facility] LABORATORYCLIA [id number] [place] HEMOGLOBIN (HGB)on Hemoglobin (Bld) [Mass/Vol] 9.2 g/dL Low 13.0-17.0 [facility] Comment on above: Order Comment: Speci men Type: BLOOD SPECIMENOrdering Facility: [facility] Address: [address] [place] [address] Performed By: #### H GB ####[facility]ATORYCLIA [id number] [address] [place] IRON + TIBCon 06-18-2021 Iron [Mass/Vol] 27 ug/dL Low 41-186 [facility] Comment on above: Order Comment: Speci men Type: BLOOD SPECIMENOrdering Facility: [facility] Address: [address] [place] [address] Performed By: #### S ERFOL, IRON, FERR ####[facility]ORYCLIA [id number] [address] Iron binding capacity [Mass/Vol] 141 ug/dL Low 232-386 [facility] Comment on above: Order Comment: Speci men Type: BLOOD SPECIMENOrdering Facility: [facility] Address: [address] [place] [address] Performed By: #### S ERFOL, IRON, FERR ####[facility]ATORYCLIA [id number] [address] Iron saturation [Mass fraction] 19 % Normal 15-57 [facility] Comment on above: Order Comment: Speci men Type: BLOOD SPECIMENOrdering Facility: [facility] Address: [address] [place] [address] Performed By: #### S ERFOL, IRON, FERR ####[facility]ATORYCLIA [id number] [address] Magnesium SerPl-mCncon 06-18 Magnesium [Mass/Vol] 2.5 mg/dL High 1.7-2.3 [facility] Comment on above: Order Comment: Speci men Type: BLOOD SPECIMENOrdering Facility: [facility] Address: [address] [place] [address] Performed By: #### 2 4321-2, , 2776-05 ####[facility]ATORYCLIA [id number] [address] [place] NURSING PROGon 06-18-2021 NURSING PROG Normal [facility] Phosphate SerPl-mCncon 06-18 Phosphate [Mass/Vol] 3.0 mg/dL Normal 2.7-4.8 [facility] Comment on above: Order Comment: Speci men Type: BLOOD SPECIMENOrdering Facility: [facility] Address: [address] [place] [address] Performed By: #### 2 4321-2, , 2776-05 ####[facility]ORYCLIA [id number] [address] [place] THERAPY NTon 06-18-2021 THERAPY NT Normal [facility] aPTT PPPon 06-18-2021 aPTT Coag (PPP) [Time] 43.0 s High 23.0-32.4 [facility] Comment on above: Order Comment: Speci men Type: BLOOD SPECIMENOrdering Facility: [facility] Address: [address] [place] [address] Performed By: #### 1 4979-9 ####[facility]ATORYCLIA [id number] [address] aPTT Coag (PPP) [Time] 60.6 s High 23.0-32.4 [facility] Comment on above: Order Comment: Speci men Type: BLOOD SPECIMENOrdering Facility: [facility] Address: [address] [place] [address] Performed By: #### 1 4979-9 ####[facility]CLIA [id number] [address] aPTT Coag (PPP) [Time] 46.4 s High 23.0-32.4 [facility] Comment on above: Order Comment: Speci men Type: BLOOD SPECIMENOrdering Facility: [facility] Address: [address] [place] [address] Performed By: #### 1 4979-9 ####[facility]ATORYCLIA [id number] [address] OF [facility] Basic metabolic 2000 panelon 06-17-2021 Anion gap [Moles/Vol] 7 mmol/L Low 9-18 [facility] Comment on above: Order Comment: Speci men Type: BLOOD SPECIMENOrdering Facility: [facility] Address: [address] [place] [address] Performed By: #### 2 951-2, 08068-3, 2777-1, 01857-3 ####[facility]ATORYCLIA [id number] [place] [address] [place] Calcium [Mass/Vol] 8.1 mg/dL Low 8.5-10.2 [facility] Comment on above: Order Comment: Speci men Type: BLOOD SPECIMENOrdering Facility: [facility] Address: [address] [place] [address] Performed By: #### 2 951-2, 43433-1, 2776-1, 45145-4 ####[facility]ATORYCLIA [id number] [place] [address] [place] Chloride [Moles/Vol] 113 mmol/L High 97-105 [facility] Comment on above: Order Comment: Speci men Type: BLOOD SPECIMENOrdering Facility: [facility] Address: [address] [place] [address] Performed By: #### 2 951-2, , 2776-05, 13147-7 ####[facility]ATORYCLIA [id number] [place] [address] [place] CO2 [Moles/Vol] 25 mmol/L Normal 22-30 [facility] Comment on above: Order Comment: Speci men Type: BLOOD SPECIMENOrdering Facility: [facility] Address: [address] [place] [address] Performed By: #### 2 951-2, , 2776-05, 46185-8 ####[facility]ATORYCLIA [id number] [place] [address] [place] Creatinine [Mass/Vol] 0.70 mg/dL Low 0.73-1.22 [facility] Comment on above: Order Comment: Speci men Type: BLOOD SPECIMENOrdering Facility: [facility] Address: [address] [place] [address] Performed By: #### 2 951-2, , 2776-05, 06774-5 ####[facility]ATORYCLIA [id number] [place] [address] [place] GFR/1.73 sq M.predicted MDRD (S/P/Bld) [Vol rate/Area] mL/min/{1.73_m2} Normal [facility] Comment on above: Order Comment: Shira feldman Type: BLOOD SPECIMENOrdering Facility: [facility] Address: [address] [place], [place] [address] Result Comment: >60e GFR (Estimated GFR) Units [...] actual GFR. Performed By: #### 2 951-2, 91571-0, 2777-1, 42062-5 ####[facility]ORATORYCLIA [id number] [place] [address] [place] Glucose [Mass/Vol] 122 mg/dL High 74-99 [facility] Comment on above: Order Comment: Shira feldman Type: BLOOD SPECIMENOrdering Facility: [facility] Address: [address] [place], [place] [address] Result Comment: The [place] [employer] (ADA) provides guidance for cutoff [...] Standards of Medical Care in Diabetes 2016, [place] [employer]. Diabetes Care. 2016.39(Suppl 1). Performed By: #### 2 951-2, 14277-3, 2777-1, 82974-6 ####[facility]ORATORYCLIA [id number] [address] STATES OF [facility] Potassium [Moles/Vol] 3.5 mmol/L Low 3.7-5.1 [facility] Comment on above: Order Comment: Speci men Type: BLOOD SPECIMENOrdering Facility: [facility] Address: [address] [place] [address] Performed By: #### 2 951-2, 79371-2, 2777-1, 45967-2 ####[facility]ORATORYCLIA [id number] [address] [place] Urea nitrogen [Mass/Vol] 27 mg/dL High 9- [facility] Comment on above: Order Comment: Speci men Type: BLOOD SPECIMENOrdering Facility: [facility] Address: [address] [place] [address] Performed By: #### 2 951-2, 79957-7, 2777-1, 74786-7 ####[facility]ENTERCLIA [id number] [address] OF [facility] CASE MANAGEMon 06-17-2021 CASE MANAGEM Normal [facility] CBC panel Auto (Bld)on 06-17 Erythrocyte distribution width (RBC) [Ratio] 15.9 % High 11.5-15.0 [facility] Comment on above: Order Comment: Speci men Type: BLOOD SPECIMENOrdering Facility: [facility] Address: [address] [place] [address] Performed By: #### 5 8410-2 ####[facility]ORATORYCLIA [id number] [address] Hematocrit (Bld) [Volume fraction] 28.9 % Low 39.0-51.0 [facility] Comment on above: Order Comment: Speci men Type: BLOOD SPECIMENOrdering Facility: [facility] Address: [address] [place] [address] Performed By: #### 5 8410-2 ####[facility]ORATORYCLIA [id number] [address] Hemoglobin (Bld) [Mass/Vol] 8.8 g/dL Low 13.0-17.0 [facility] Comment on above: Order Comment: Speci men Type: BLOOD SPECIMENOrdering Facility: [facility] Address: [address] [place] [address] Performed By: #### 5 8410-2 ####[facility]ORATORYCLIA [id number] [address] MCH (RBC) [Entitic mass] 28.4 pg Normal 26.0-34.0 [facility] Comment on above: Order Comment: Speci men Type: BLOOD SPECIMENOrdering Facility: [facility] Address: [address] [place] [address] Performed By: #### 5 8410-2 ####[facility]ORATORYCLIA [id number] [address] MCHC (RBC) [Mass/Vol] 30.4 g/dL Low 30.5-36.0 [facility] Comment on above: Order Comment: Speci men Type: BLOOD SPECIMENOrdering Facility: [facility] Address: [address] [place] [address] Performed By: #### 5 8410-2 ####[facility]ORATORYCLIA [id number] [address] MCV (RBC) [Entitic vol] 93.2 fL Normal 80.0-100.0 [facility] Comment on above: Order Comment: Speci men Type: BLOOD SPECIMENOrdering Facility: [facility] Address: [address] [place] [address] Performed By: #### 5 8410-2 ####[facility]ORATORYCLIA [id number] [address] Nucleated RBC (Bld) [#/Vol] 10*3/uL Normal <0.01 [facility] Comment on above: Order Comment: Speci men Type: BLOOD SPECIMENOrdering Facility: [facility] Address: [address] Performed By: #### 5 8410-2 ####[facility]ORATORYCLIA [id number] [address] Platelet mean volume (Bld) [Entitic vol] 11.9 fL Normal 9.0-12.7 [facility] Comment on above: Order Comment: Speci men Type: BLOOD SPECIMENOrdering Facility: [facility] Address: [address] [place] [address] Performed By: #### 5 8410-2 ####[facility]ORATORYCLIA [id number] [address] OF [facility] Platelets (Bld) [#/Vol] 257 10*3/uL Normal 150-400 [facility] Comment on above: Order Comment: Speci men Type: BLOOD SPECIMENOrdering Facility: [facility] Address: [address] [place] [address] Performed By: #### 5 8410-2 ####[facility]ORATORYCLIA [id number] [address] [place] RBC (Bld) [#/Vol] 3.10 10*6/uL Low 4.20-6.00 [facility] Comment on above: Order Comment: Speci men Type: BLOOD SPECIMENOrdering Facility: [facility] Address: [address] [place] [address] Performed By: #### 5 8410-2 ####[facility]ORATORYCLIA [id number] [address] [place] WBC (Bld) [#/Vol] 10.54 10*3/uL Normal 3.70-11.00 [facility] Comment on above: Order Comment: Speci men Type: BLOOD SPECIMENOrdering Facility: [facility] Address: [address] [place] [address] Performed By: #### 5 8410-2 ####[facility]ORATORYCLIA [id number] [address] HEMOGLOBIN (HGB)on Hemoglobin (Bld) [Mass/Vol] 8.8 g/dL Low 13.0-17.0 [facility] Comment on above: Order Comment: Speci men Type: BLOOD SPECIMENOrdering Facility: [facility] Address: [address] [place] [address] Performed By: #### H GB ####[facility]ORATORYCLIA [id number] [address] OF [facility] Magnesium SerPl-mCncon 06-17 Magnesium [Mass/Vol] 2.5 mg/dL High 1.7-2.3 [facility] Comment on above: Order Comment: Speci men Type: BLOOD SPECIMENOrdering Facility: [facility] Address: [address] [place] [address] Performed By: #### 2 951-2, 30262-3, 2777-1, 36043-4 ####[facility]ORATORYCLIA [id number] [address] NURSING PROGon 06-17-2021 NURSING PROG Normal [facility] NURSING PROG Normal [facility] NURSING PROG Normal [facility] Phosphate SerPl-mCncon 06-17 Phosphate [Mass/Vol] 1.9 mg/dL Low 2.7-4.8 [facility] Comment on above: Order Comment: Speci men Type: BLOOD SPECIMENOrdering Facility: [facility] Address: [address] [place] [address] Performed By: #### 2 951-2, 91935-0, 2777-1, 27733-6 ####[facility]ORATORYCLIA [id number] [address] OF [facility] Sodium SerPl-sCncon 06-17-19 22 Sodium [Moles/Vol] 144 mmol/L Normal 136-144 [facility] Comment on above: Order Comment: Speci men Type: BLOOD SPECIMENOrdering Facility: [facility] Address: [address] [place] [address] Performed By: #### 2 951-2 ####[facility]ORATORYCLIA [id number] [address] STATES OF [facility] Sodium [Moles/Vol] 145 mmol/L High 136-144 [facility] Comment on above: Order Comment: Speci men Type: BLOOD SPECIMENOrdering Facility: [facility] Address: [address] [place] [address] Performed By: #### 2 951-2, 31830-2, 2777-1, 27572-8 ####[facility]ORATORYCLIA [id number] [place] [address] [place] aPTT PPPon 06-17-2021 aPTT Coag (PPP) [Time] 55.8 s High 23.0-32.4 [facility] Comment on above: Order Comment: Speci men Type: BLOOD SPECIMENOrdering Facility: [facility] Address: [address] [place] [address] Performed By: #### 1 4979-9 ####[facility]ORATORYCLIA [id number] [address] [place] ARTERIAL BLOOD GASESon 06-16 Base excess Calc (Bld) [Moles/Vol] 3 mmol/L High 0-2 [facility] Comment on above: Order Comment: Speci men Type: ARTERIAL BLOOD SPECIMENOrdering Facility: [facility] Address: [address] [place] [address] Performed By: #### A LLBG ####[facility]ORATORYCLIA [id number] [address] [place] Body temperature 99.14 [degF] Normal [facility] Comment on above: Order Comment: Speci men Type: ARTERIAL BLOOD SPECIMENOrdering Facility: [facility] Address: [address] [place] [address] Performed By: #### A LLBG ####[facility]ORATORYCLIA [id number] [address] [place] CALCIUM IONIZED, PH CORRECTED 1.21 mmol/L Normal 1.08-1.30 [facility] Comment on above: Order Comment: Speci men Type: ARTERIAL BLOOD SPECIMENOrdering Facility: [facility] Address: [address] [place] [address] Performed By: #### A LLBG ####[facility]ORATORYCLIA [id number] [place] [address] [place] Calcium.ionized (BldV) [Mass/Vol] 1.17 mmol/L Normal 1.08-1.30 [facility] Comment on above: Order Comment: Speci men Type: ARTERIAL BLOOD SPECIMENOrdering Facility: [facility] Address: [address] [place] [address] Performed By: #### A LLBG ####[facility]ORATORYCLIA [id number] [address] [place] Carboxyhemoglobin (BldA) [Mass fraction] 1.4 % Normal 0.0-2.0 [facility] Comment on above: Order Comment: Speci men Type: ARTERIAL BLOOD SPECIMENOrdering Facility: [facility] Address: [address] [place] [address] Result Comment: Carb oxyhemoglobin Reference Range for Smokers: 2.0-8.0% Performed By: #### A LLBG ####[facility]ATORYCLIA [id number] [place] [address] [place] CO2 (Bld) [Partial pressure] 38 mm Hg Normal 36-46 [facility] Comment on above: Order Comment: Speci men Type: ARTERIAL BLOOD SPECIMENOrdering Facility: [facility] Address: [address] [place] [address] Performed By: #### A LLBG ####[facility]ORATORYCLIA [id number] [place] [address] [place] CO2 [Moles/Vol] 24.5 mmol/L Normal 22-28 [facility] Comment on above: Order Comment: Speci men Type: ARTERIAL BLOOD SPECIMENOrdering Facility: [facility] Address: [address] [place] [address] Performed By: #### A LLBG ####[facility]ATORYCLIA [id number] [address] CO2 adjusted to patient's actual temperature (Bld) [Partial pressure] 38 mmHg Normal 36-46 [facility] Comment on above: Order Comment: Speci men Type: ARTERIAL BLOOD SPECIMENOrdering Facility: [facility] Address: [address] [place] [address] Performed By: #### A LLBG ####[facility]ATORYCLIA [id number] [address] [place] Glucose [Mass/Vol] 147 mg/dL High 60-105 [facility] Comment on above: Order Comment: Speci men Type: ARTERIAL BLOOD SPECIMENOrdering Facility: [facility] Address: [address] [place] [address] Performed By: #### A LLBG ####[facility]ATORYCLIA [id number] [address] HCO3 (Bld) [Moles/Vol] 27 mmol/L High 22-26 [facility] Comment on above: Order Comment: Speci men Type: ARTERIAL BLOOD SPECIMENOrdering Facility: [facility] Address: [address] [place] [address] Performed By: #### A LLBG ####[facility]ATORYCLIA [id number] [address] [place] Hematocrit (Bld) [Volume fraction] 31.8 % Low 39.0-51.0 [facility] Comment on above: Order Comment: Speci men Type: ARTERIAL BLOOD SPECIMENOrdering Facility: [facility] Address: [address] [place] [address] Performed By: #### A LLBG ####[facility]ATORYCLIA [id number] [address] [place] Hemoglobin (Bld) [Mass/Vol] 10.3 g/dL Low 13.0-17.0 [facility] Comment on above: Order Comment: Speci men Type: ARTERIAL BLOOD SPECIMENOrdering Facility: [facility] Address: [address] [address] Performed By: #### A LLBG ####[facility]ATORYCLIA [id number] [address] Methemoglobin (Bld) [Mass fraction] 1.0 % Normal 0.0-1.5 [facility] Comment on above: Order Comment: Speci men Type: ARTERIAL BLOOD SPECIMENOrdering Facility: [facility] Address: [address] [place] [address] Performed By: #### A LLBG ####[facility]ORATORYCLIA [id number] [address] O2 THERAPY Ventilator Normal [facility] Comment on above: Order Comment: Speci men Type: ARTERIAL BLOOD SPECIMENOrdering Facility: [facility] Address: [address] [place] [address] Performed By: #### A LLBG ####[facility]ATORYCLIA [id number] [address] Oxygen (Bld) [Partial pressure] 78 mm Hg Low 85-95 [facility] Comment on above: Order Comment: Speci men Type: ARTERIAL BLOOD SPECIMENOrdering Facility: [facility] Address: [address] [place] [address] Performed By: #### A LLBG ####[facility]ORYCLIA [id number] [address] Oxygen adjusted to patient's actual temperature (Bld) [Partial pressure] 79.7 mmHg Low 85-95 [facility] Comment on above: Order Comment: Speci men Type: ARTERIAL BLOOD SPECIMENOrdering Facility: [facility] Address: [address] [address] Performed By: #### A LLBG ####[facility]ORYCLIA [id number] [address] [place] OXYGEN SATURATION, ARTERIAL 96 % Normal 95-98 [facility] Comment on above: Order Comment: Speci men Type: ARTERIAL BLOOD SPECIMENOrdering Facility: [facility] Address: [address] [place] [address] Performed By: #### A LLBG ####[facility]ATORYCLIA [id number] [address] [place] Oxyhemoglobin (BldA) [Mass fraction] 94 % Low 95- [facility] Comment on above: Order Comment: Speci men Type: ARTERIAL BLOOD SPECIMENOrdering Facility: [facility] Address: [address] [place] [address] Performed By: #### A LLBG ####[facility]ATORYCLIA [id number] [place] [address] [place] pH (Bld) 7.47 [pH] High 7.35-7.45 [facility] Comment on above: Order Comment: Speci men Type: ARTERIAL BLOOD SPECIMENOrdering Facility: [facility] Address: [address] [place] [address] Performed By: #### A LLBG ####[facility]ORATORYCLIA [id number] [address] STATES [facility] pH adjusted to patient's actual temperature (Bld) 7.46 High 7.35-7.45 [facility] Comment on above: Order Comment: Speci men Type: ARTERIAL BLOOD SPECIMENOrdering Facility: [facility] Address: [address] [place] [address] Performed By: #### A LLBG ####[facility]ORATORYCLIA [id number] [place] [address] [place] Potassium [Moles/Vol] 3.7 mmol/L Normal 3.5-5.0 [facility] Comment on above: Order Comment: Speci men Type: ARTERIAL BLOOD SPECIMENOrdering Facility: [facility] Address: [address] [place] [address] Performed By: #### A LLBG ####[facility]ORATORYCLIA [id number] [address] [place] Sodium [Moles/Vol] 155 mmol/L High 136-144 [facility] Comment on above: Order Comment: Speci men Type: ARTERIAL BLOOD SPECIMENOrdering Facility: [facility] Address: [address] [place] [address] Performed By: #### A LLBG ####[facility]ATORYCLIA [id number] [address] [place] Bacteria Spec Resp Culton Bacteria identified Respiratory culture Nom (Unsp spec) CULTURE, RESPIRATORY: Rare Normal respiratory chris present ORGANISM ID: 1 Few Yeast, not cryptococcus neoformans GRAM STAIN: No organisms seen Few Polymorphonuclear leukocytes Few Epithelial cells Abnormal [facility] Comment on above: Performed By: #### 3 2355-0 ####[facility]ATORYCLIA [id number] [place] [address] [place] Basic metabolic 2000 panelon 06-16-2021 Anion gap [Moles/Vol] 9 mmol/L Normal 9-18 [facility] Comment on above: Order Comment: Speci men Type: BLOOD SPECIMENOrdering Facility: [facility] Address: [address] [place] [address] Performed By: #### 2 4321-2 ####[facility] LABORATORYCLIA [id number] [place] [address] [place] Calcium [Mass/Vol] 8.4 mg/dL Low 8.5-10.2 [facility] Comment on above: Order Comment: Speci men Type: BLOOD SPECIMENOrdering Facility: [facility] Address: [address] [place] [address] Performed By: #### 2 4321-2 ####[facility]ORATORYCLIA [id number] [place] [address] [place] Chloride [Moles/Vol] 120 mmol/L High 97-105 [facility] Comment on above: Order Comment: Speci men Type: BLOOD SPECIMENOrdering Facility: [facility] Address: [address] [place] [address] Performed By: #### 2 4321-2 ####[facility]ATORYCLIA [id number] [address] STATES OF [facility] CO2 [Moles/Vol] 27 mmol/L Normal 22-30 [facility] Comment on above: Order Comment: Speci men Type: BLOOD SPECIMENOrdering Facility: [facility] Address: [address] [place] [address] Performed By: #### 2 4321-2 ####[facility]ATORYCLIA [id number] [address] [place] Creatinine [Mass/Vol] 0.75 mg/dL Normal 0.73-1.22 [facility] Comment on above: Order Comment: Speci men Type: BLOOD SPECIMENOrdering Facility: [facility] Address: [address] [place] [address] Performed By: #### 2 4321-2 ####[facility]ENTERCLIA [id number] [address] [place] GFR/1.73 sq M.predicted MDRD (S/P/Bld) [Vol rate/Area] mL/min/{1.73_m2} Normal [facility] Comment on above: Order Comment: Speci men Type: BLOOD SPECIMENOrdering Facility: [facility] Address: [address] [place] [address] Result Comment: >60e GFR (Estimated GFR) Units [...] Performed By: #### 2 4321-2 ####[facility]ATORYCLIA [id number] [address] [place] Glucose [Mass/Vol] 160 mg/dL High 74-99 [facility] Comment on above: Order Comment: Speci men Type: BLOOD SPECIMENOrdering Facility: [facility] Address: [address] [place] [address] Result Comment: The [place] [employer] (ADA) provides guidance for cutoff [...] Standards of Medical Care in Diabetes 2016, [place] [employer]. Diabetes Care. 2016.39(Suppl 1). Performed By: #### 2 4321-2 ####[facility]ATORYCLIA [id number] [place] [address] [place] Potassium [Moles/Vol] 3.1 mmol/L Low 3.7-5.1 [facility] Comment on above: Order Comment: Shira men Type: BLOOD SPECIMENOrdering Facility: [facility] Address: [address] [place] [address] Performed By: #### 2 4321-2 ####[facility]ATORYCLIA [id number] [place] [address] [place] Sodium [Moles/Vol] 156 mmol/L High 136-144 [facility] Comment on above: Order Comment: Speci men Type: BLOOD SPECIMENOrdering Facility: [facility] Address: [address] [place] [address] Performed By: #### 2 4321-2 ####[facility]ORATORYCLIA [id number] [place] [address] [place] Urea nitrogen [Mass/Vol] 33 mg/dL High 9-24 [facility] Comment on above: Order Comment: Speci men Type: BLOOD SPECIMENOrdering Facility: [facility] Address: [address] [place] [address] Performed By: #### 2 4321-2 ####[facility]ORATORYCLIA [id number] [address] CASE MANAGEMon 06-16-2021 CASE MANAGEM Normal [facility] CBC panel Auto (Bld)on 06-16 Erythrocyte distribution width (RBC) [Ratio] 15.9 % High 11.5-15.0 [facility] Comment on above: Order Comment: Speci men Type: BLOOD SPECIMENOrdering Facility: [facility] Address: [address] [place] [address] Performed By: #### 5 8410-2 ####[facility]ORATORYCLIA [id number] [address] STATES [facility] Hematocrit (Bld) [Volume fraction] 34.6 % Low 39.0-51.0 [facility] Comment on above: Order Comment: Speci men Type: BLOOD SPECIMENOrdering Facility: [facility] Address: [address] [place] [address] Performed By: #### 5 8410-2 ####[facility]ORATORYCLIA [id number] [address] Hemoglobin (Bld) [Mass/Vol] 10.2 g/dL Low 13.0-17.0 [facility] Comment on above: Order Comment: Speci men Type: BLOOD SPECIMENOrdering Facility: [facility] Address: [address] [place] [address] Performed By: #### 5 8410-2 ####[facility]ORATORYCLIA [id number] [address] MCH (RBC) [Entitic mass] 28.5 pg Normal 26.0-34.0 [facility] Comment on above: Order Comment: Speci men Type: BLOOD SPECIMENOrdering Facility: [facility] Address: [address] [place] [address] Performed By: #### 5 8410-2 ####[facility]ORATORYCLIA [id number] [address] STATES [facility] MCHC (RBC) [Mass/Vol] 29.5 g/dL Low 30.5-36.0 [facility] Comment on above: Order Comment: Speci men Type: BLOOD SPECIMENOrdering Facility: [facility] Address: [address] [place] [address] Performed By: #### 5 8410-2 ####[facility]ORATORYCLIA [id number] [address] STATES OF [facility] MCV (RBC) [Entitic vol] 96.6 fL Normal 80.0-100.0 [facility] Comment on above: Order Comment: Speci men Type: BLOOD SPECIMENOrdering Facility: [facility] Address: [address] [place] [address] Performed By: #### 5 8410-2 ####[facility]ATORYCLIA [id number] [address] Nucleated RBC (Bld) [#/Vol] 10*3/uL Normal <0.01 [facility] Comment on above: Order Comment: Speci men Type: BLOOD SPECIMENOrdering Facility: [facility] Address: [address] [place] [address] Performed By: #### 5 8410-2 ####[facility]ORATORYCLIA [id number] [address] [place] Platelet mean volume (Bld) [Entitic vol] 11.9 fL Normal 9.0-12.7 [facility] Comment on above: Order Comment: Speci men Type: BLOOD SPECIMENOrdering Facility: [facility] Address: [address] [place] [address] Performed By: #### 5 8410-2 ####[facility]ORATORYCLIA [id number] [address] [place] Platelets (Bld) [#/Vol] 269 10*3/uL Normal 150-400 [facility] Comment on above: Order Comment: Speci men Type: BLOOD SPECIMENOrdering Facility: [facility] Address: [address] [place] [address] Performed By: #### 5 8410-2 ####[facility]ORATORYCLIA [id number] [address] STATES OF [facility] RBC (Bld) [#/Vol] 3.58 10*6/uL Low 4.20-6.00 [facility] Comment on above: Order Comment: Speci men Type: BLOOD SPECIMENOrdering Facility: [facility] Address: [address] [place] [address] Performed By: #### 5 8410-2 ####[facility]ORATORYCLIA [id number] [address] WBC (Bld) [#/Vol] 13.11 10*3/uL High 3.70-11.00 [facility] Comment on above: Order Comment: Speci men Type: BLOOD SPECIMENOrdering Facility: [facility] Address: [address] [place] [address] Performed By: #### 5 8410-2 ####[facility]ORATORYCLIA [id number] [address] [place] CONSULTon 06-16-2021 CONSULT Normal [facility] CONSULT PROGon 06-16-2021 CONSULT PROG Normal [facility] CT BRAIN WO IVCONon 06-16-[address] BRAIN WO IVCON Normal [facility] HEMOGLOBIN (HGB)on 2 Hemoglobin (Bld) [Mass/Vol] 8.9 g/dL Low 13.0-17.0 [facility] Comment on above: Order Comment: Speci men Type: BLOOD SPECIMENOrdering Facility: [facility] Address: [address] [place] [address] Performed By: #### H GB ####[facility]ORATORYCLIA [id number] [address] OF [facility] Hemoglobin (Bld) [Mass/Vol] 9.6 g/dL Low 13.0-17.0 [facility] Comment on above: Order Comment: Speci men Type: BLOOD SPECIMENOrdering Facility: [facility] Address: [address] [place] [address] Performed By: #### H GB ####[facility]ORATORYCLIA [id number] [address] [place] Magnesium SerPl-mCncon 06-16 Magnesium [Mass/Vol] 2.7 mg/dL High 1.7-2.3 [facility] Comment on above: Order Comment: Speci men Type: BLOOD SPECIMENOrdering Facility: [facility] Address: [address] [place] [address] Performed By: #### 1 9123-9 ####[facility]ORATORYCLIA [id number] [address] [place] NURSING PROGon 06-16-2021 NURSING PROG Normal [facility] NUTRITIONon 06-16-2021 NUTRITION Normal [facility] Phosphate SerPl-mCncon 06-16 Phosphate [Mass/Vol] 1.4 mg/dL Low 2.7-4.8 [facility] Comment on above: Order Comment: Speci men Type: BLOOD SPECIMENOrdering Facility: [facility] Address: [address] [place] [address] Performed By: #### 2 777-1 ####[facility]ORATORYCLIA [id number] [address] [place] STAPH AUREUS PCRon 2 S. aureus and MRSA panel MEGAN+probe (Nose) Normal Negative [facility] Comment on above: Order Comment: Speci men Type: SWAB OF INTERNAL NOSEOrdering Facility: [facility] Address: [address] [place] [address] Result Comment: Nega tive for Staphylococcus aureus by PCR.Negative for MRSA by PCR Performed By: #### S APCR ####[facility]ORATORYCLIA [id number] [address] [place] Sodium SerPl-sCncon 06-16-19 Sodium [Moles/Vol] 150 mmol/L High 136-144 [facility] Comment on above: Order Comment: Speci men Type: BLOOD SPECIMENOrdering Facility: [facility] Address: [address] [place] [address] Performed By: #### 2 951-2 ####[facility]ORATORYCLIA [id number] [place] [address] [place] Sodium [Moles/Vol] 153 mmol/L High 136-144 [facility] Comment on above: Order Comment: Speci men Type: BLOOD SPECIMENOrdering Facility: [facility] Address: [address] [place] [address] Performed By: #### 2 951-2 ####[facility]ORATORYCLIA [id number] [address] [place] Sodium [Moles/Vol] 158 mmol/L High 136-144 [facility] Comment on above: Order Comment: Speci men Type: BLOOD SPECIMENOrdering Facility: [facility] Address: [address] [place] [address] Performed By: #### 2 951-2 ####[facility]ORATORYCLIA [id number] [address] [place] aPTT PPPon 06-16-2021 aPTT Coag (PPP) [Time] 61.8 s High 23.0-32.4 [facility] Comment on above: Order Comment: Speci men Type: BLOOD SPECIMENOrdering Facility: [facility] Address: [address] [place] [address] Performed By: #### 1 4979-9 ####[facility]ATORYCLIA [id number] [address] [place] aPTT Coag (PPP) [Time] 57.6 s High 23.0-32.4 [facility] Comment on above: Order Comment: Speci men Type: BLOOD SPECIMENOrdering Facility: [facility] Address: [address] [place] [address] Performed By: #### 1 4979-9 ####[facility]ORATORYCLIA [id number] [address] [place] ALLIED HEALTHon 06-15-2021 ALLIED HEALTH Normal [facility] ALLIED HEALTH Normal [facility] ALLIED HEALTH Normal [facility] ALLIED HEALTH Normal [facility] ARTERIAL BLOOD GASESon 06-15 Base excess Calc (Bld) [Moles/Vol] 3 mmol/L High 0-2 [facility] Comment on above: Order Comment: Speci men Type: ARTERIAL BLOOD SPECIMENOrdering Facility: [facility] Address: [address] [place] [address] Performed By: #### A LLBG ####[facility]ORATORYCLIA [id number] [address] [place] Body temperature 99.5 [degF] Normal [facility] Comment on above: Order Comment: Speci men Type: ARTERIAL BLOOD SPECIMENOrdering Facility: [facility] Address: [address] [place] [address] Performed By: #### A LLBG ####[facility]ORATORYCLIA [id number] [place] [address] [place] CALCIUM IONIZED, PH CORRECTED 1.34 mmol/L High 1.08-1.30 [facility] Comment on above: Order Comment: Speci men Type: ARTERIAL BLOOD SPECIMENOrdering Facility: [facility] Address: [address] [place] [address] Performed By: #### A LLBG ####[facility]ORATORYCLIA [id number] [address] [place] Calcium.ionized (BldV) [Mass/Vol] 1.29 mmol/L Normal 1.08-1.30 [facility] Comment on above: Order Comment: Speci men Type: ARTERIAL BLOOD SPECIMENOrdering Facility: [facility] Address: [address] [place] [address] Performed By: #### A LLBG ####[facility]ORATORYCLIA [id number] [address] [place] Carboxyhemoglobin (BldA) [Mass fraction] 1.3 % Normal 0.0-2.0 [facility] Comment on above: Order Comment: Speci men Type: ARTERIAL BLOOD SPECIMENOrdering Facility: [facility] Address: [address] [address] Result Comment: Carb oxyhemoglobin Reference Range for Smokers: 2.0-8.0% Performed By: #### A LLBG ####[facility]ORATORYCLIA [id number] [address] [place] CO2 (Bld) [Partial pressure] 37 mm Hg Normal 36-46 [facility] Comment on above: Order Comment: Speci men Type: ARTERIAL BLOOD SPECIMENOrdering Facility: [facility] Address: [address] [address] Performed By: #### A LLBG ####[facility]ATORYCLIA [id number] [address] [place] CO2 [Moles/Vol] 24.6 mmol/L Normal 22-28 [facility] Comment on above: Order Comment: Speci men Type: ARTERIAL BLOOD SPECIMENOrdering Facility: [facility] Address: [address] [address] Performed By: #### A LLBG ####[facility]ORATORYCLIA [id number] [address] [place] CO2 adjusted to patient's actual temperature (Bld) [Partial pressure] 38 mmHg Normal 36-46 [facility] Comment on above: Order Comment: Speci men Type: ARTERIAL BLOOD SPECIMENOrdering Facility: [facility] Address: [address] [address] Performed By: #### A LLBG ####[facility]ORATORYCLIA [id number] [address] [place] FIO2 100 % Normal [facility] Comment on above: Order Comment: Speci men Type: ARTERIAL BLOOD SPECIMENOrdering Facility: [facility] Address: [address] [address] Performed By: #### A LLBG ####[facility]ATORYCLIA [id number] [address] [place] Glucose [Mass/Vol] 159 mg/dL High 60-105 [facility] Comment on above: Order Comment: Speci men Type: ARTERIAL BLOOD SPECIMENOrdering Facility: [facility] Address: [address] [place] [address] Performed By: #### A LLBG ####[facility]ATORYCLIA [id number] [address] [place] HCO3 (Bld) [Moles/Vol] 27 mmol/L High 22-26 [facility] Comment on above: Order Comment: Speci men Type: ARTERIAL BLOOD SPECIMENOrdering Facility: [facility] Address: [address] [place] [address] Performed By: #### A LLBG ####[facility]ATORYCLIA [id number] [address] Hematocrit (Bld) [Volume fraction] 31.0 % Low 39.0-51.0 [facility] Comment on above: Order Comment: Speci men Type: ARTERIAL BLOOD SPECIMENOrdering Facility: [facility] Address: [address] [place] [address] Performed By: #### A LLBG ####[facility]ATORYCLIA [id number] [address] [place] Hemoglobin (Bld) [Mass/Vol] 10.0 g/dL Low 13.0-17.0 [facility] Comment on above: Order Comment: Speci men Type: ARTERIAL BLOOD SPECIMENOrdering Facility: [facility] Address: [address] [place] [address] Performed By: #### A LLBG ####[facility]ORYCLIA [id number] [address] [place] Methemoglobin (Bld) [Mass fraction] % Normal 0.0-1.5 [facility] Comment on above: Order Comment: Speci men Type: ARTERIAL BLOOD SPECIMENOrdering Facility: [facility] Address: [facility] [address] Performed By: #### A LLBG ####[facility]ORYCLIA [id number] [address] [place] O2 THERAPY Ventilator Normal [facility] Comment on above: Order Comment: Speci men Type: ARTERIAL BLOOD SPECIMENOrdering Facility: [facility] Address: [address] [place] [address] Performed By: #### A LLBG ####[facility]ATORYCLIA [id number] [address] [place] Oxygen (Bld) [Partial pressure] 279 mm Hg High 85-95 [facility] Comment on above: Order Comment: Speci men Type: ARTERIAL BLOOD SPECIMENOrdering Facility: [facility] Address: [address] [place] [address] Performed By: #### A LLBG ####[facility]ORYCLIA [id number] [address] Oxygen adjusted to patient's actual temperature (Bld) [Partial pressure] 281 mmHg High 85-95 [facility] Comment on above: Order Comment: Speci men Type: ARTERIAL BLOOD SPECIMENOrdering Facility: [facility] Address: [address] [place] [address] Performed By: #### A LLBG ####[facility]ATORYCLIA [id number] [address] [place] OXYGEN SATURATION, ARTERIAL 100 % High 95-98 [facility] Comment on above: Order Comment: Speci men Type: ARTERIAL BLOOD SPECIMENOrdering Facility: [facility] Address: [facility] [address] Performed By: #### A LLBG ####[facility]ORYCLIA [id number] [address] [place] Oxyhemoglobin (BldA) [Mass fraction] 98 % Normal 95-98 [facility] Comment on above: Order Comment: Speci men Type: ARTERIAL BLOOD SPECIMENOrdering Facility: [facility] Address: [address] [place] [address] Performed By: #### A LLBG ####[facility]ATORYCLIA [id number] [address] pH (Bld) 7.47 [pH] High 7.35-7.45 [facility] Comment on above: Order Comment: Speci men Type: ARTERIAL BLOOD SPECIMENOrdering Facility: [facility] Address: [address] [place] [address] Performed By: #### A LLBG ####[facility]ATORYCLIA [id number] [address] pH adjusted to patient's actual temperature (Bld) 7.46 High 7.35-7.45 [facility] Comment on above: Order Comment: Speci men Type: ARTERIAL BLOOD SPECIMENOrdering Facility: [facility] Address: [address] [place] [address] Performed By: #### A LLBG ####[facility]ORATORYCLIA [id number] [address] [place] Potassium [Moles/Vol] 3.6 mmol/L Normal 3.5-5.0 [facility] Comment on above: Order Comment: Speci men Type: ARTERIAL BLOOD SPECIMENOrdering Facility: [facility] Address: [address] [place] [address] Performed By: #### A LLBG ####[facility]ORATORYCLIA [id number] [address] [place] Sodium [Moles/Vol] 162 mmol/L High 136-144 [facility] Comment on above: Order Comment: Speci men Type: ARTERIAL BLOOD SPECIMENOrdering Facility: [facility] Address: [address] [place] [address] Performed By: #### A LLBG ####[facility]ORATORYCLIA [id number] [address] [place] Base excess Calc (Bld) [Moles/Vol] 4 mmol/L High 0-2 [facility] Comment on above: Order Comment: Speci men Type: ARTERIAL BLOOD SPECIMENOrdering Facility: [facility] Address: [address] [place] [address] Performed By: #### A LLBG ####[facility]ORATORYCLIA [id number] [address] [place] Body temperature 100.58 [degF] Normal [facility] Comment on above: Order Comment: Speci men Type: ARTERIAL BLOOD SPECIMENOrdering Facility: [facility] Address: [address] [place] [address] Performed By: #### A LLBG ####[facility]ORATORYCLIA [id number] [place] [address] [place] CALCIUM IONIZED, PH CORRECTED 1.34 mmol/L High 1.08-1.30 [facility] Comment on above: Order Comment: Speci men Type: ARTERIAL BLOOD SPECIMENOrdering Facility: [facility] Address: [address] [place] [address] Performed By: #### A LLBG ####[facility]ORATORYCLIA [id number] [address] [place] Calcium.ionized (BldV) [Mass/Vol] 1.33 mmol/L High 1.08-1.30 [facility] Comment on above: Order Comment: Speci men Type: ARTERIAL BLOOD SPECIMENOrdering Facility: [facility] Address: [address] [place] [address] Performed By: #### A LLBG ####[facility]ORATORYCLIA [id number] [place] [address] [place] Carboxyhemoglobin (BldA) [Mass fraction] 1.5 % Normal 0.0-2.0 [facility] Comment on above: Order Comment: Speci men Type: ARTERIAL BLOOD SPECIMENOrdering Facility: [facility] Address: [address] [place] [address] Result Comment: Carb oxyhemoglobin Reference Range for Smokers: 2.0-8.0% Performed By: #### A LLBG ####[facility]ORYCLIA [id number] [address] CO2 (Bld) [Partial pressure] 46 mm Hg Normal 36-46 [facility] Comment on above: Order Comment: Speci men Type: ARTERIAL BLOOD SPECIMENOrdering Facility: [facility] Address: [address] [address] Performed By: #### A LLBG ####[facility]ORYCLIA [id number] [address] CO2 [Moles/Vol] 26.4 mmol/L Normal 22-28 [facility] Comment on above: Order Comment: Speci men Type: ARTERIAL BLOOD SPECIMENOrdering Facility: [facility] Address: [address] [place] [address] Performed By: #### A LLBG ####[facility]ORATORYCLIA [id number] [address] CO2 adjusted to patient's actual temperature (Bld) [Partial pressure] 48 mmHg High 36-46 [facility] Comment on above: Order Comment: Speci men Type: ARTERIAL BLOOD SPECIMENOrdering Facility: [facility] Address: [address] [place] [address] Performed By: #### A LLBG ####[facility]ORATORYCLIA [id number] [address] FIO2 100 % Normal [facility] Comment on above: Order Comment: Speci men Type: ARTERIAL BLOOD SPECIMENOrdering Facility: SELECT [facility] Address: [address] [address] Performed By: #### A LLBG ####[facility]ORATORYCLIA [id number] [address] Glucose [Mass/Vol] 132 mg/dL High 60-105 [facility] Comment on above: Order Comment: Speci men Type: ARTERIAL BLOOD SPECIMENOrdering Facility: [facility] Address: [address] [place], [place] [id number] Performed By: #### A LLBG ####[facility] LABORATORYCLIA [id number] [address] [place] HCO3 (Bld) [Moles/Vol] 29 mmol/L High 22-26 [facility] Comment on above: Order Comment: Speci men Type: ARTERIAL BLOOD SPECIMENOrdering Facility: [facility] Address: [address] [place] [address] Performed By: #### A LLBG ####[facility] LABORATORYCLIA [id number] [address] [place] Hematocrit (Bld) [Volume fraction] 32.3 % Low 39.0-51.0 [facility] Comment on above: Order Comment: Speci men Type: ARTERIAL BLOOD SPECIMENOrdering Facility: [facility] Address: [address] [place] [address] Performed By: #### A LLBG ####[facility] LABORATORYCLIA [id number] [address] OF [facility] Hemoglobin (Bld) [Mass/Vol] 10.4 g/dL Low 13.0-17.0 [facility] Comment on above: Order Comment: Speci men Type: ARTERIAL BLOOD SPECIMENOrdering Facility: [facility] Address: [address] [place] [address] Performed By: #### A LLBG ####[facility]ORATORYCLIA [id number] [address] [place] Methemoglobin (Bld) [Mass fraction] % Normal 0.0-1.5 [facility] Comment on above: Order Comment: Speci men Type: ARTERIAL BLOOD SPECIMENOrdering Facility: [facility] Address: [address] [place] [address] Performed By: #### A LLBG ####[facility]ORATORYCLIA [id number] [address] [place] O2 THERAPY NR=Non-Rebreather Mask Normal [facility] Comment on above: Order Comment: Speci men Type: ARTERIAL BLOOD SPECIMENOrdering Facility: [facility] Address: [address] [place] [address] Performed By: #### A LLBG ####[facility]ATORYCLIA [id number] [address] Oxygen (Bld) [Partial pressure] 130 mm Hg High 85-95 [facility] Comment on above: Order Comment: Speci men Type: ARTERIAL BLOOD SPECIMENOrdering Facility: [facility] Address: [address] [place] [address] Performed By: #### A LLBG ####[facility]ORATORYCLIA [id number] [address] Oxygen adjusted to patient's actual temperature (Bld) [Partial pressure] 136 mmHg High 85-95 [facility] Comment on above: Order Comment: Speci men Type: ARTERIAL BLOOD SPECIMENOrdering Facility: [facility] Address: [address] [place] [address] Performed By: #### A LLBG ####[facility]ORATORYCLIA [id number] [address] [place] OXYGEN SATURATION, ARTERIAL 99 % High 95-98 [facility] Comment on above: Order Comment: Speci men Type: ARTERIAL BLOOD SPECIMENOrdering Facility: [facility] Address: [address] [place] [address] Performed By: #### A LLBG ####[facility]ATORYCLIA [id number] [address] [place] Oxyhemoglobin (BldA) [Mass fraction] 97 % Normal 95-98 [facility] Comment on above: Order Comment: Speci men Type: ARTERIAL BLOOD SPECIMENOrdering Facility: [facility] Address: [address] [place] [address] Performed By: #### A LLBG ####[facility]ORATORYCLIA [id number] [address] [place] pH (Bld) 7.41 [pH] Normal 7.35-7.45 [facility] Comment on above: Order Comment: Speci men Type: ARTERIAL BLOOD SPECIMENOrdering Facility: [facility] Address: [address] [place] [address] Performed By: #### A LLBG ####[facility]ORATORYCLIA [id number] [address] pH adjusted to patient's actual temperature (Bld) 7.40 Normal 7.35-7.45 [facility] Comment on above: Order Comment: Speci men Type: ARTERIAL BLOOD SPECIMENOrdering Facility: [facility] Address: [address] [place] [address] Performed By: #### A LLBG ####[facility]ORATORYCLIA [id number] [address] Potassium [Moles/Vol] 3.8 mmol/L Normal 3.5-5.0 [facility] Comment on above: Order Comment: Speci men Type: ARTERIAL BLOOD SPECIMENOrdering Facility: [facility] Address: [address] [place] [address] Performed By: #### A LLBG ####[facility] LABORATORYCLIA [id number] [address] STATES [facility] Sodium [Moles/Vol] 166 mmol/L High 136-144 [facility] Comment on above: Order Comment: Speci men Type: ARTERIAL BLOOD SPECIMENOrdering Facility: [facility] Address: [address] [place] [address] Performed By: #### A LLBG ####[facility]ORATORYCLIA [id number] [place] [address] [place] Bacteria Bld Culton 06-15-19 Bacteria identified Cx Nom (Bld) CULTURE, BLOOD: No growth 5 days Normal [facility] Comment on above: Performed By: #### 6 00-7 ####[facility]ORATORYCLIA [id number] [place] [address] [place] Basic metabolic 2000 panelon 06-15-2021 Anion gap [Moles/Vol] 9 mmol/L Normal 9-18 [facility] Comment on above: Order Comment: Speci men Type: BLOOD SPECIMEN Performed By: #### 2 4321-2, 2776-05, ####[facility]ORATORYCLIA [id number] [place], [place] [address] [place] [address] STATES OF [facility] Calcium [Mass/Vol] 9.0 mg/dL Normal 8.5-10.2 [facility] Comment on above: Order Comment: Speci men Type: BLOOD SPECIMEN Performed By: #### 2 4321-2, 2776-05, ####[facility]ORATORYCLIA [id number] [address] [place] Chloride [Moles/Vol] 125 mmol/L High 97-105 [facility] Comment on above: Order Comment: Speci men Type: BLOOD SPECIMEN Performed By: #### 2 4321-2, 2776-05, ####[facility]ORATORYCLIA [id number] [address] [place] CO2 [Moles/Vol] 29 mmol/L Normal 22-30 [facility] Comment on above: Order Comment: Speci men Type: BLOOD SPECIMEN Performed By: #### 2 4321-2, 2776-05, ####[facility]ORATORYCLIA [id number] [address] [place] Creatinine [Mass/Vol] 0.81 mg/dL Normal 0.73-1.22 [facility] Comment on above: Order Comment: Speci men Type: BLOOD SPECIMEN Performed By: #### 2 4321-2, 2776-05, ####[facility]ORATORYCLIA [id number] [place] [address] [place] GFR/1.73 sq M.predicted [...] has been calibrated to be traceable to IDMN. An eGFR <60 mL/min/1.73m2 for >3 months is consistent with chronic kidney disease. Refer to KDOQI guidelines for clinical interpretation. In patients with unstable renal function, e.g. those with acute kidney injury, the eGFR may not accurately reflect actual GFR. Performed By: #### 2 4321-2, 2776-05, ####[facility] CENTERCLIA [id number] [place] [address] [place] Glucose [Mass/Vol] 124 mg/dL High 74-99 [facility] Comment on above: Order Comment: Speci men Type: BLOOD SPECIMEN Result Comment: The [place] [employer] (ADA) provides guidance for cutoff [...] Standards of Medical Care in Diabetes 2016, [place] [employer]. Diabetes Care. 2016.39(Suppl 1). Performed By: #### 2 4321-2, 2776-05, ####[facility]ORATORYCLIA [id number] [place] [address] [place] Potassium [Moles/Vol] 3.8 mmol/L Normal 3.7-5.1 [facility] Comment on above: Order Comment: Speci men Type: BLOOD SPECIMEN Performed By: #### 2 4321-2, 2776-05, ####[facility]ORATORYCLIA [id number] [place] [address] [place] Sodium [Moles/Vol] 163 mmol/L High 136-144 [facility] Comment on above: Order Comment: Speci men Type: BLOOD SPECIMEN Performed By: #### 2 4321-2, 2776-, ####[facility]ORATORYCLIA [id number] [place], [place] [address] [place] [address] [place] Urea nitrogen [Mass/Vol] 35 mg/dL High 9-24 [facility] Comment on above: Order Comment: Speci men Type: BLOOD SPECIMEN Performed By: #### 2 4321-2, 2776-, ####[facility]ORATORYCLIA [id number] [address] [place] CBC panel Auto (Bld)on 06-15 Erythrocyte distribution width (RBC) [Ratio] 16.3 % High 11.5-15.0 [facility] Comment on above: Order Comment: Speci men Type: BLOOD SPECIMENOrdering Facility: [facility] Address: [address] [place] [address] Performed By: #### 5 8410-2 ####[facility]ORATORYCLIA [id number] [address] [place] Hematocrit (Bld) [Volume fraction] 30.0 % Low 39.0-51.0 [facility] Comment on above: Order Comment: Speci men Type: BLOOD SPECIMENOrdering Facility: [facility] Address: [address] [place] [address] Performed By: #### 5 8410-2 ####[facility]ORATORYCLIA [id number] [address] [place] Hemoglobin (Bld) [Mass/Vol] 8.9 g/dL Low 13.0-17.0 [facility] Comment on above: Order Comment: Speci men Type: BLOOD SPECIMENOrdering Facility: [facility] Address: [address] [place] [address] Performed By: #### 5 8410-2 ####[facility]ORATORYCLIA [id number] [address] MCH (RBC) [Entitic mass] 28.7 pg Normal 26.0-34.0 [facility] Comment on above: Order Comment: Speci men Type: BLOOD SPECIMENOrdering Facility: [facility] Address: [address] [place] [address] Performed By: #### 5 8410-2 ####[facility]ORATORYCLIA [id number] [address] MCHC (RBC) [Mass/Vol] 29.7 g/dL Low 30.5-36.0 [facility] Comment on above: Order Comment: Speci men Type: BLOOD SPECIMENOrdering Facility: [facility] Address: [address] [place] [address] Performed By: #### 5 8410-2 ####[facility]ORATORYCLIA [id number] [address] MCV (RBC) [Entitic vol] 96.8 fL Normal 80.0-100.0 [facility] Comment on above: Order Comment: Speci men Type: BLOOD SPECIMENOrdering Facility: [facility] Address: [address] [place] [address] Performed By: #### 5 8410-2 ####[facility]ORATORYCLIA [id number] [address] Nucleated RBC (Bld) [#/Vol] 10*3/uL Normal <0.01 [facility] Comment on above: Order Comment: Speci men Type: BLOOD SPECIMENOrdering Facility: [facility] Address: [address] [place] [address] Performed By: #### 5 8410-2 ####[facility]ORATORYCLIA [id number] [address] Platelet mean volume (Bld) [Entitic vol] 12.3 fL Normal 9.0-12.7 [facility] Comment on above: Order Comment: Speci men Type: BLOOD SPECIMENOrdering Facility: [facility] Address: [address] [address] Performed By: #### 5 8410-2 ####[facility]ORATORYCLIA [id number] [address] Platelets (Bld) [#/Vol] 226 10*3/uL Normal 150-400 [facility] Comment on above: Order Comment: Speci men Type: BLOOD SPECIMENOrdering Facility: [facility] Address: [address] [place] [address] Performed By: #### 5 8410-2 ####[facility]ORATORYCLIA [id number] [address] RBC (Bld) [#/Vol] 3.10 10*6/uL Low 4.20-6.00 [facility] Comment on above: Order Comment: Speci men Type: BLOOD SPECIMENOrdering Facility: [facility] Address: [address] [place] [address] Performed By: #### 5 8410-2 ####[facility]ORATORYCLIA [id number] [address] WBC (Bld) [#/Vol] 10.77 10*3/uL Normal 3.70-11.00 [facility] Comment on above: Order Comment: Speci men Type: BLOOD SPECIMENOrdering Facility: [facility] Address: [address] [place] [address] Performed By: #### 5 8410-2 ####[facility]ORATORYCLIA [id number] [address] Erythrocyte distribution width (RBC) [Ratio] 16.2 % High 11.5-15.0 [facility] Comment on above: Order Comment: Speci men Type: BLOOD SPECIMENOrdering Facility: [facility] Address: [address] [place] [address] Performed By: #### 5 8410-2 ####[facility]ORATORYCLIA [id number] [address] Hematocrit (Bld) [Volume fraction] 34.8 % Low 39.0-51.0 [facility] Comment on above: Order Comment: Speci men Type: BLOOD SPECIMENOrdering Facility: [facility] Address: [address] [place] [address] Performed By: #### 5 8410-2 ####[facility] LABORATORYCLIA [id number] [address] STATES OF [facility] Hemoglobin (Bld) [Mass/Vol] 10.0 g/dL Low 13.0-17.0 [facility] Comment on above: Order Comment: Speci men Type: BLOOD SPECIMENOrdering Facility: [facility] Address: [address] [place] [address] Performed By: #### 5 8410-2 ####[facility]ORATORYCLIA [id number] [address] OF [facility] MCH (RBC) [Entitic mass] 27.5 pg Normal 26.0-34.0 [facility] Comment on above: Order Comment: Speci men Type: BLOOD SPECIMENOrdering Facility: [facility] Address: [address] [place] [address] Performed By: #### 5 8410-2 ####[facility]ORATORYCLIA [id number] [address] STATES OF [facility] MCHC (RBC) [Mass/Vol] 28.7 g/dL Low 30.5-36.0 [facility] Comment on above: Order Comment: Speci men Type: BLOOD SPECIMENOrdering Facility: [facility] Address: [address] [place] [address] Performed By: #### 5 8410-2 ####[facility]ORATORYCLIA [id number] [address] MCV (RBC) [Entitic vol] 95.6 fL Normal 80.0-100.0 [facility] Comment on above: Order Comment: Speci men Type: BLOOD SPECIMENOrdering Facility: [facility] Address: [address] [place] [address] Performed By: #### 5 8410-2 ####[facility]ORATORYCLIA [id number] [address] Nucleated RBC (Bld) [#/Vol] 10*3/uL Normal <0.01 [facility] Comment on above: Order Comment: Speci men Type: BLOOD SPECIMENOrdering Facility: [facility] Address: [address] [place] [address] Performed By: #### 5 8410-2 ####[facility]ORATORYCLIA [id number] [address] [place] Platelet mean volume (Bld) [Entitic vol] 11.9 fL Normal 9.0-12.7 [facility] Comment on above: Order Comment: Speci men Type: BLOOD SPECIMENOrdering Facility: [facility] Address: [address] [place] [address] Performed By: #### 5 8410-2 ####[facility]ORATORYCLIA [id number] [address] [place] Platelets (Bld) [#/Vol] 246 10*3/uL Normal 150-400 [facility] Comment on above: Order Comment: Speci men Type: BLOOD SPECIMENOrdering Facility: [facility] Address: [address] [place] [address] Performed By: #### 5 8410-2 ####[facility]ATORYCLIA [id number] [address] [place] RBC (Bld) [#/Vol] 3.64 10*6/uL Low 4.20-6.00 [facility] Comment on above: Order Comment: Speci men Type: BLOOD SPECIMENOrdering Facility: [facility] Address: [address] [place] [address] Performed By: #### 5 8410-2 ####[facility]ATORYCLIA [id number] [address] [place] WBC (Bld) [#/Vol] 11.45 10*3/uL High 3.70-11.00 [facility] Comment on above: Order Comment: Speci men Type: BLOOD SPECIMENOrdering Facility: [facility] Address: [address] [place] [address] Performed By: #### 5 8410-2 ####[facility]ORYCLIA [id number] [address] Erythrocyte distribution width (RBC) [Ratio] 15.9 % High 11.5-15.0 [facility] Comment on above: Order Comment: Speci men Type: BLOOD SPECIMEN Performed By: #### 5 8410-2 ####[facility]ATORYCLIA [id number] [address] Hematocrit (Bld) [Volume fraction] 35.8 % Low 39.0-51.0 [facility] Comment on above: Order Comment: Speci men Type: BLOOD SPECIMEN Performed By: #### 5 8410-2 ####[facility]ORYCLIA [id number] [address] Hemoglobin (Bld) [Mass/Vol] 10.4 g/dL Low 13.0-17.0 [facility] Comment on above: Order Comment: Speci men Type: BLOOD SPECIMEN Performed By: #### 5 8410-2 ####[facility]ORYCLIA [id number] [address] MCH (RBC) [Entitic mass] 28.0 pg Normal 26.0-34.0 [facility] Comment on above: Order Comment: Speci men Type: BLOOD SPECIMEN Performed By: #### 5 8410-2 ####[facility]ORATORYCLIA [id number] [address] OF [facility] MCHC (RBC) [Mass/Vol] 29.1 g/dL Low 30.5-36.0 [facility] Comment on above: Order Comment: Speci men Type: BLOOD SPECIMEN Performed By: #### 5 8410-2 ####[facility]ATORYCLIA [id number] [address] MCV (RBC) [Entitic vol] 96.2 fL Normal 80.0-100.0 [facility] Comment on above: Order Comment: Speci men Type: BLOOD SPECIMEN Performed By: #### 5 8410-2 ####[facility]ORYCLIA [id number] [address] Nucleated RBC (Bld) [#/Vol] 10*3/uL Normal <0.01 [facility] Comment on above: Order Comment: Speci men Type: BLOOD SPECIMEN Performed By: #### 5 8410-2 ####[facility]ORYCLIA [id number] [address] Platelet mean volume (Bld) [Entitic vol] 11.6 fL Normal 9.0-12.7 [facility] Comment on above: Order Comment: Speci men Type: BLOOD SPECIMEN Performed By: #### 5 8410-2 ####[facility]ORYCLIA [id number] [address] Platelets (Bld) [#/Vol] 265 10*3/uL Normal 150-400 [facility] Comment on above: Order Comment: Speci men Type: BLOOD SPECIMEN Performed By: #### 5 8410-2 ####[facility]ORYCLIA [id number] [address] RBC (Bld) [#/Vol] 3.72 10*6/uL Low 4.20-6.00 [facility] Comment on above: Order Comment: Speci men Type: BLOOD SPECIMEN Performed By: #### 5 8410-2 ####[facility]ORYCLIA [id number] [address] WBC (Bld) [#/Vol] 12.24 10*3/uL High 3.70-11.00 [facility] Comment on above: Order Comment: Speci men Type: BLOOD SPECIMEN Performed By: #### 5 8410-2 ####[facility]ORYCLIA [id number] [address] [place] CONSULTon 06-15-2021 CONSULT Normal [facility] [...] Comment: Speci men Type: URINE SPECIMENOrdering Facility: [facility] Address: [address] [place] [address] Performed By: #### U TPR, 18024-6, 52708-1, 22312-3 ####[facility]ATORYCLIA [id number] [address] Comprehensive metabolic 2000 panelon 06-15-2021 Albumin [Mass/Vol] 2.8 g/dL Low 3.9-4.9 [facility] Comment on above: Order Comment: Speci men Type: BLOOD SPECIMENOrdering Facility: [facility] Address: [address] [place] [address] Performed By: #### 2 4323-8 ####[facility]ORYCLIA [id number] [address] [place] ALP [Catalytic activity/Vol] 74 U/L Normal 38-113 [facility] Comment on above: Order Comment: Speci men Type: BLOOD SPECIMENOrdering Facility: [facility] Address: [address] [place] [address] Performed By: #### 2 4323-8 ####[facility]ORYCLIA [id number] [address] [place] ALT With P-5'-P [Catalytic activity/Vol] 50 U/L Normal 10-54 [facility] Comment on above: Order Comment: Speci men Type: BLOOD SPECIMENOrdering Facility: [facility] Address: [address] [place] [address] Performed By: #### 2 4323-8 ####[facility] LABORATORYCLIA [id number] [place] [address] [place] Anion gap [Moles/Vol] 12 mmol/L Normal 9-18 [facility] Comment on above: Order Comment: Speci men Type: BLOOD SPECIMENOrdering Facility: [facility] Address: [address] [place] [address] Performed By: #### 2 4323-8 ####[facility]ORATORYCLIA [id number] [address] [place] AST With P-5'-P [Catalytic activity/Vol] 36 U/L Normal 14-40 [facility] Comment on above: Order Comment: Speci men Type: BLOOD SPECIMENOrdering Facility: [facility] Address: [address] [place] [address] Performed By: #### 2 4323-8 ####[facility]ORATORYCLIA [id number] [place] [address] [place] Bilirubin [Mass/Vol] 0.5 mg/dL Normal 0.2-1.3 [facility] Comment on above: Order Comment: Speci men Type: BLOOD SPECIMENOrdering Facility: [facility] Address: [address] [place] [address] Performed By: #### 2 4323-8 ####[facility]ORATORYCLIA [id number] [address] [place] Calcium [Mass/Vol] 8.8 mg/dL Normal 8.5-10.2 [facility] Comment on above: Order Comment: Speci men Type: BLOOD SPECIMENOrdering Facility: [facility] Address: [address] [place] [address] Performed By: #### 2 4323-8 ####[facility] LABORATORYCLIA [id number] [address] [place] Chloride [Moles/Vol] 126 mmol/L High 97-105 [facility] Comment on above: Order Comment: Speccara feldman Type: BLOOD SPECIMENOrdering Facility: [facility] Address: [address] [place] [address] Performed By: #### 2 4323-8 ####[facility] LABORATORYCLIA [id number] [address] [place] CO2 [Moles/Vol] 24 mmol/L Normal 22-30 [facility] Comment on above: Order Comment: Johni francia Type: BLOOD SPECIMENOrdering Facility: [facility] Address: [address] [place] [address] Performed By: #### 2 4323-8 ####[facility] LABORATORYCLIA [id number] [address] [place] Creatinine [Mass/Vol] 0.84 mg/dL Normal 0.73-1.22 [facility] Comment on above: Order Comment: Johncara feldman Type: BLOOD SPECIMENOrdering Facility: [facility] Address: [address] [place] [address] Performed By: #### 2 4323-8 ####[facility] LABORATORYCLIA [id number] [address] [place] GFR/1.73 sq M.predicted MDRD (S/P/Bld) [Vol rate/Area] mL/min/{1.73_m2} Normal [facility] Comment on above: Order Comment: Johncara feldman Type: BLOOD SPECIMENOrdering Facility: [facility] Address: [address] [place] [address] Result Comment: >60e GFR (Estimated GFR) Units [...] Performed By: #### 2 4323-8 ####[facility]ORATORYCLIA [id number] [place] [address] [place] Glucose [Mass/Vol] 142 mg/dL High 74-99 [facility] Comment on above: Order Comment: Shira feldman Type: BLOOD SPECIMENOrdering Facility: [facility] Address: [address] [place] [address] Result Comment: The [place] [employer] (ADA) provides guidance for cutoff [...] Standards of Medical Care in Diabetes 2016, [place] [employer]. Diabetes Care. 2016.39(Suppl 1). Performed By: #### 2 4323-8 ####[facility] LABORATORYCLIA [id number] [place] [address] [place] Potassium [Moles/Vol] 3.8 mmol/L Normal 3.7-5.1 [facility] Comment on above: Order Comment: Shira feldman Type: BLOOD SPECIMENOrdering Facility: [facility] Address: [address] [address] Performed By: #### 2 4323-8 ####[facility]ORATORYCLIA [id number] [place] [address] [place] Protein [Mass/Vol] 6.1 g/dL Low 6.3-8.0 [facility] Comment on above: Order Comment: Shira feldman Type: BLOOD SPECIMENOrdering Facility: [facility] Address: [address] [address] Performed By: #### 2 4323-8 ####[facility] LABORATORYCLIA [id number] [place] [address] [place] Sodium [Moles/Vol] 162 mmol/L High 136-144 [facility] Comment on above: Order Comment: Speci men Type: BLOOD SPECIMENOrdering Facility: [facility] Address: [address] [place] [address] Performed By: #### 2 4323-8 ####[facility] LABORATORYCLIA [id number] [place] [address] [place] Urea nitrogen [Mass/Vol] 33 mg/dL High 9-24 [facility] Comment on above: Order Comment: Speci men Type: BLOOD SPECIMENOrdering Facility: [facility] Address: [address] [place] [address] Performed By: #### 2 4323-8 ####[facility]ORATORYCLIA [id number] [address] [place] Creatinine Unsp time (U) [Ma ss/Vol]on 06-15-2021 Creatinine (U) [Mass/Vol] 87.0 mg/dL Normal 46.8-314.5 [facility] Comment on above: Order Comment: Speci men Type: URINE SPECIMENOrdering Facility: [facility] Address: [address] [place] [address] Performed By: #### U TPR, 49211-8, 65992-9, 78912-8 ####[facility]ORATORYCLIA [id number] [address] [place] HIGH SENSITIVITY TROPONIN To n 06-15-2021 HIGH SENSITIVITY TAMIKO 23 ng/L High <12 [facility] Comment on above: Order Comment: Speci men Type: BLOOD SPECIMENOrdering Facility: [facility] Address: [address] [place] [address] Result Comment: When assessing risk for acute [...] day MACE. Performed By: #### P JULIANNE, 64750-7, HSTNT ####[facility]ORATORYCLIA [id number] [address] STATES OF [facility] Lactate (Bld) [Moles/Vol]on 06-15-2021 Lactate [Moles/Vol] 0.8 mmol/L Normal 0.5-2.2 [facility] Comment on above: Order Comment: Speci men Type: BLOOD SPECIMENOrdering Facility: [facility] Address: [address] [place] [address] Performed By: #### 3 2693-4 ####[facility] CENTERCLIA [id number] [address] [place] Magnesium [facility]-ncon 06-15 Magnesium [Mass/Vol] 3.0 mg/dL High 1.7-2.3 [facility] Comment on above: Order Comment: Speci men Type: BLOOD SPECIMEN Performed By: #### 2 4321-2, 2777-1, 54175-5 ####[facility]ORATORYCLIA [id number] [address] NT-proBNP [facility] 06-15 Natriuretic peptide.B prohormone N-Terminal [Mass/Vol] 265 pg/mL High <125 [facility] Comment on above: Order Comment: Speci men Type: BLOOD SPECIMENOrdering Facility: [facility] Address: [address] [address] Performed By: #### P JULIANNE, 87377-3, HSTNT ####[facility] LABORATORYCLIA [id number] [address] [place] Osmolality Uron 06-15-2021 Osmolality (U) [Osmolality] 606 mosm/kg Normal 50-1,200 [facility] Comment on above: Order Comment: Speci men Type: URINE SPECIMENOrdering Facility: [facility] Address: [address] [place] [address] Performed By: #### 2 695-5 ####[facility] LABORATORYCLIA [id number] [address] PROCALCITONIN (LAB)on 2021 Procalcitonin [Mass/Vol] 0.21 ng/mL High <0.09 [facility] Comment on above: Order Comment: Speci men Type: BLOOD SPECIMENOrdering Facility: [facility] Address: [address] [place] [address] Result Comment: For a guided interpretation of test results, please visit the Change in Procalcitonin Calculator, [email or web address]. Performed By: #### P JULIANNE, 2951-2 ####[facility]ORATORYCLIA [id number] [address] Procalcitonin [Mass/Vol] 0.17 ng/mL High <0.09 [facility] Comment on above: Order Comment: Speci men Type: BLOOD SPECIMENOrdering Facility: [facility] Address: [address] [place] [address] Result Comment: For a guided interpretation of test results, please visit the Change in Procalcitonin Calculator, [email or web address]. Performed By: #### P JULIANNE, 12010-0, HSTNT ####[facility] LABORATORYCLIA [id number] [address] PROTEIN RANDOM URon 06-15-19 22 Protein (U) [Mass/Vol] 175 mg/dL High 0-20 [facility] Comment on above: Order Comment: Speci men Type: URINE SPECIMENOrdering Facility: [facility] Address: [address] [place] [address] Performed By: #### U TPR, 19397-7, 51680-6, 84652-7 ####[facility]ORATORYCLIA [id number] [address] PT panel Coag (PPP)on 2021 INR Coag (PPP) [Relative time] 1.1 {INR} Normal <1.4 [facility] Comment on above: Order Comment: Shira feldman Type: BLOOD SPECIMENOrdering Facility: [facility] Address: [address] [place] [address] Result Comment: Yris min K Antagonist (VKA) Therapeutic Range: INR 2 to 3 (Target INR of 2.5)Note: For patients treated with VKA drugs, such as warfarin, the [place] [employer] 2012 Guideline recommends [...] al. Chest 2012, 141:7S-47SNishimura RA, et al. [facility] 2017, 70: 252-289 Performed By: #### 3 4528-0, 66262-9 ####[facility]ORATORYCLIA [id number] [place] [address] [place] PT Coag (PPP) [Time] 11.4 s Normal <13.1 [facility] Comment on above: Order Comment: Shira feldman Type: BLOOD SPECIMENOrdering Facility: [facility] Address: [address] [place], [place] [address] Performed By: #### 3 4528-0, 31022-3 ####[facility]ORATORYCLIA [id number] [place] [address] [place] Phosphate SerPl-mCncon 06-15 Phosphate [Mass/Vol] 2.6 mg/dL Low 2.7-4.8 [facility] Comment on above: Order Comment: Shira feldman Type: BLOOD SPECIMEN Performed By: #### 2 4321-2, 2777-1, 88968-6 ####[facility]ORATORYCLIA [id number] [place] [address] [place] Sodium ?Tm Ur-sCncon 022 Sodium Unsp time (U) [Moles/Vol] 34 mmol/L Normal 14-216 [facility] Comment on above: Order Comment: Speci men Type: URINE SPECIMENOrdering Facility: [facility] Address: [address] [place] [address] Performed By: #### U TPR, 47302-5, 02973-0, 34861-7 ####[facility]ORATORYCLIA [id number] [address] [place] Sodium SerPl-sCncon 06-15-19 22 Sodium [Moles/Vol] 159 mmol/L High 136-144 [facility] Comment on above: Order Comment: Speci men Type: BLOOD SPECIMENOrdering Facility: [facility] Address: [address] [place] [address] Performed By: #### P JULIANNE, 2951-2 ####[facility]ORATORYCLIA [id number] [address] [place] THERAPY NTon 06-15-2021 THERAPY NT Normal [facility] Urinalysis complete panel (U )on 06-15-2021 Bacteria LM.HPF (Urine sed) [#/Area] None Seen Normal None Seen [facility] Comment on above: Order Comment: Speci men Type: URINE SPECIMENOrdering Facility: [facility] Address: [address] [place] [address] Performed By: #### 2 4356-8 ####[facility]ORATORYCLIA [id number] [address] [place] Bilirubin Ql (U) Negative Normal Negative [facility] Comment on above: Order Comment: Speci men Type: URINE SPECIMENOrdering Facility: [facility] Address: [address] [place] [address] Performed By: #### 2 4356-8 ####[facility]ORATORYCLIA [id number] [address] Clarity (Unsp spec) Cloudy Abnormal Clear [facility] Comment on above: Order Comment: Speci men Type: URINE SPECIMENOrdering Facility: [facility] Address: [address] [place] [address] Performed By: #### 2 4356-8 ####[facility]ORATORYCLIA [id number] [address] Color (U) Yellow Normal Yellow [facility] Comment on above: Order Comment: Speci men Type: URINE SPECIMENOrdering Facility: [facility] Address: [address] [place] [address] Performed By: #### 2 4356-8 ####[facility] LABORATORYCLIA [id number] [address] Epithelial cells LM.HPF (Urine sed) [#/Area] 7.1 /[HPF] Normal [facility] Comment on above: Order Comment: Speci men Type: URINE SPECIMENOrdering Facility: [facility] Address: [address] [place] [address] Performed By: #### 2 4356-8 ####[facility]ORATORYCLIA [id number] [address] Glucose Test strip (U) [Mass/Vol] Negative Normal Negative [facility] Comment on above: Order Comment: Speci men Type: URINE SPECIMENOrdering Facility: [facility] Address: [address] [place] [address] Performed By: #### 2 4356-8 ####[facility] LABORATORYCLIA [id number] [address] Granular casts (Urine sed) [#/Area] /[LPF] Abnormal 0 /LPF [facility] Comment on above: Order Comment: Speci men Type: URINE SPECIMENOrdering Facility: [facility] Address: [address] [place] [address] Performed By: #### 2 4356-8 ####[facility]ORATORYCLIA [id number] [address] [place] Hemoglobin Ql (U) Moderate Abnormal Negative [facility] Comment on above: Order Comment: Speci men Type: URINE SPECIMENOrdering Facility: [facility] Address: [address] [place] [address] Performed By: #### 2 4356-8 ####[facility]ORATORYCLIA [id number] [place] [address] [place] Hyaline casts (Urine sed) [#/Area] /[LPF] Abnormal 0 /LPF [facility] Comment on above: Order Comment: Speci men Type: URINE SPECIMENOrdering Facility: [facility] Address: [address] [place] [address] Performed By: #### 2 4356-8 ####[facility] LABORATORYCLIA [id number] [address] STATES [facility] Ketones Ql (U) Negative Normal Negative [facility] Comment on above: Order Comment: Speci men Type: URINE SPECIMENOrdering Facility: [facility] Address: [address] [place] [address] Performed By: #### 2 4356-8 ####[facility]ORATORYCLIA [id number] [address] [place] Leukocyte esterase Test strip Ql (U) Negative Normal Negative [facility] Comment on above: Order Comment: Speci men Type: URINE SPECIMENOrdering Facility: [facility] Address: [address] [place] [address] Performed By: #### 2 4356-8 ####[facility]ORATORYCLIA [id number] [place] [address] [place] Nitrite Ql (U) Negative Normal Negative [facility] Comment on above: Order Comment: Speci men Type: URINE SPECIMENOrdering Facility: [facility] Address: [facility] [address] Performed By: #### 2 4356-8 ####[facility]ORATORYCLIA [id number] [address] pH (U) 6.0 [pH] Normal 5.0-8.0 [facility] Comment on above: Order Comment: Speci men Type: URINE SPECIMENOrdering Facility: [facility] Address: [address] [place] [address] Performed By: #### 2 4356-8 ####[facility]ORATORYCLIA [id number] [address] Protein (U) [Mass/Vol] 100 mg/dL Abnormal Negative [facility] Comment on above: Order Comment: Speci men Type: URINE SPECIMENOrdering Facility: [facility] Address: [address] [place] [address] Performed By: #### 2 4356-8 ####[facility]ENTERCLIA [id number] [address] STATES [facility] RBC LM.HPF (Urine sed) [#/Area] 0-3 /HPF Normal 0-3 /HPF [facility] Comment on above: Order Comment: Speci men Type: URINE SPECIMENOrdering Facility: [facility] Address: [address] [place] [address] Performed By: #### 2 4356-8 ####[facility]ORATORYCLIA [id number] [address] Specific gravity (U) [Rel density] 1.024 Normal 1.005-1.030 [facility] Comment on above: Order Comment: Speci men Type: URINE SPECIMENOrdering Facility: [facility] Address: [address] [place] [address] Performed By: #### 2 4356-8 ####[facility]ORATORYCLIA [id number] [address] Urobilinogen Ql (U) 0.2 EU/dL Normal 0.2-1.0 EU/dL [facility] Comment on above: Order Comment: Speci men Type: URINE SPECIMENOrdering Facility: [facility] Address: [address] [place] [address], [place] [address] Performed By: #### 2 4356-8 ####[facility] LABORATORYCLIA [id number] [address] STATES [facility] WBC LM.HPF (Urine sed) [#/Area] 0-5 /HPF Normal 0-5 /HPF [facility] Comment on above: Order Comment: Speci men Type: URINE SPECIMENOrdering Facility: [facility] Address: [address] [place], [place] [address] [address] Performed By: #### 2 4356-8 ####[facility] LABORATORYCLIA [id number] [address] OF [facility] XR CHEST 1V FRONTALon 2021 XR CHEST 1V FRONTAL Normal [facility] XR CHEST 1V FRONTAL PORTon 0 06-15-2021 XR CHEST 1V FRONTAL PORT Normal [facility] XR CHEST 1V FRONTAL PORT Normal [facility] aPTT PPPon 06-15-2021 aPTT Coag (PPP) [Time] 30.9 s Normal 23.0-32.4 [facility] Comment on above: Order Comment: Speci men Type: BLOOD SPECIMENOrdering Facility: [facility] Address: [facility] [place] [address] Performed By: #### 3 4528-0, 37970-1 ####[facility]ORATORYCLIA [id number] [address] STATES OF [facility] Basic metabolic 2000 panelon 06-14-2021 Anion gap [Moles/Vol] 8 mmol/L Low 9-18 [facility] Comment on above: Order Comment: Speci men Type: BLOOD SPECIMEN Performed By: #### 2 4321-2, 2777-1, 36839-6 ####[facility]ORATORYCLIA [id number] [address] STATES OF [facility] Calcium [Mass/Vol] 8.9 mg/dL Normal 8.5-10.2 [facility] Comment on above: Order Comment: Speci men Type: BLOOD SPECIMEN Performed By: #### 2 4321-2, 2776-05, ####[facility]ORATORYCLIA [id number] [place], [place] [address] [place] [address] [place] [facility] Chloride [Moles/Vol] 121 mmol/L High 97-105 [facility] Comment on above: Order Comment: Speci men Type: BLOOD SPECIMEN Performed By: #### 2 4321-2, 2776-05, ####[facility]ORATORYCLIA [id number] [address] [place] CO2 [Moles/Vol] 30 mmol/L Normal 22-30 [facility] Comment on above: Order Comment: Speci men Type: BLOOD SPECIMEN Performed By: #### 2 4321-2, 2776-05, ####[facility]ATORYCLIA [id number] [address] STATES OF [facility] Creatinine [Mass/Vol] 0.78 mg/dL Normal 0.73-1.22 [facility] Comment on above: Order Comment: Speci men Type: BLOOD SPECIMEN Performed By: #### 2 4321-2, 2776-05, ####[facility]ATORYCLIA [id number] [address] [place] GFR/1.73 sq [...] By: #### 2 4321-2, 2776-05, ####[facility]ORATORYCLIA [id number] [place] [address] [place] Glucose [Mass/Vol] 132 mg/dL High 74-99 [facility] Comment on above: Order Comment: Speci men Type: BLOOD SPECIMEN Result Comment: The [place] [employer] (ADA) provides guidance for cutoff [...] Standards of Medical Care in Diabetes 2016, [place] [employer]. Diabetes Care. 2016.39(Suppl 1). Performed By: #### 2 4321-2, 2776-05, ####[facility]ORATORYCLIA [id number] [place] [address] [place] Potassium [Moles/Vol] 3.7 mmol/L Normal 3.7-5.1 [facility] Comment on above: Order Comment: Speci men Type: BLOOD SPECIMEN Performed By: #### 2 1-2, 2776-05, ####[facility]ORATORYCLIA [id number] [place] [address] [place] Sodium [Moles/Vol] 159 mmol/L High 136-144 [facility] Comment on above: Order Comment: Speci men Type: BLOOD SPECIMEN Performed By: #### 2 4321-2, 2776-05, ####[facility]ATORYCLIA [id number] [place] [address] [place] Urea nitrogen [Mass/Vol] 35 mg/dL High 9-24 [facility] Comment on above: Order Comment: Speci men Type: BLOOD SPECIMEN Performed By: #### 2 1-2, 2776-05, 69029-4 ####[facility]ORATORYCLIA [id number] [address] CASE MANAGEMon 06-14-2021 CASE MANAGEM Normal [facility] CBC panel Auto (Bld)on 06-14 Erythrocyte distribution width (RBC) [Ratio] 16.2 % High 11.5-15.0 [facility] Comment on above: Order Comment: Speci men Type: BLOOD SPECIMEN Performed By: #### 5 8410-2 ####[facility]ORATORYCLIA [id number] [address] Hematocrit (Bld) [Volume fraction] 35.2 % Low 39.0-51.0 [facility] Comment on above: Order Comment: Speci men Type: BLOOD SPECIMEN Performed By: #### 5 8410-2 ####[facility]ATORYCLIA [id number] [address] Hemoglobin (Bld) [Mass/Vol] 10.1 g/dL Low 13.0-17.0 [facility] Comment on above: Order Comment: Speci men Type: BLOOD SPECIMEN Performed By: #### 5 8410-2 ####[facility]ORATORYCLIA [id number] [address] MCH (RBC) [Entitic mass] 27.2 pg Normal 26.0-34.0 [facility] Comment on above: Order Comment: Speci men Type: BLOOD SPECIMEN Performed By: #### 5 8410-2 ####[facility]ATORYCLIA [id number] [address] MCHC (RBC) [Mass/Vol] 28.7 g/dL Low 30.5-36.0 [facility] Comment on above: Order Comment: Speci men Type: BLOOD SPECIMEN Performed By: #### 5 8410-2 ####[facility]ORATORYCLIA [id number] [address] MCV (RBC) [Entitic vol] 94.6 fL Normal 80.0-100.0 [facility] Comment on above: Order Comment: Speci men Type: BLOOD SPECIMEN Performed By: #### 5 8410-2 ####[facility]ORATORYCLIA [id number] [address] Nucleated RBC (Bld) [#/Vol] 10*3/uL Normal <0.01 [facility] Comment on above: Order Comment: Speci men Type: BLOOD SPECIMEN Performed By: #### 5 8410-2 ####[facility]ATORYCLIA [id number] [address] Platelet mean volume (Bld) [Entitic vol] 11.0 fL Normal 9.0-12.7 [facility] Comment on above: Order Comment: Speci men Type: BLOOD SPECIMEN Performed By: #### 5 8410-2 ####[facility]ATORYCLIA [id number] [address] Platelets (Bld) [#/Vol] 287 10*3/uL Normal 150-400 [facility] Comment on above: Order Comment: Speci men Type: BLOOD SPECIMEN Performed By: #### 5 8410-2 ####[facility]ATORYCLIA [id number] [address] RBC (Bld) [#/Vol] 3.72 10*6/uL Low 4.20-6.00 [facility] Comment on above: Order Comment: Speci men Type: BLOOD SPECIMEN Performed By: #### 5 8410-2 ####[facility]ATORYCLIA [id number] [address] WBC (Bld) [#/Vol] 12.23 10*3/uL High 3.70-11.00 [facility] Comment on above: Order Comment: Speci men Type: BLOOD SPECIMEN Performed By: #### 5 8410-2 ####[facility]ORATORYCLIA [id number] [address] Comprehensive metabolic 2000 panelon 06-14-2021 Albumin [Mass/Vol] 3.1 g/dL Low 3.9-4.9 [facility] Comment on above: Order Comment: Speci men Type: BLOOD SPECIMEN Performed By: #### 2 4323-8, HSTNT, 2776-05, ####[facility]ORATORYCLIA [id number] [place], [place] [id number] [place] [address] ALP [Catalytic activity/Vol] 72 U/L Normal 38-113 [facility] Comment on above: Order Comment: Speci men Type: BLOOD SPECIMEN Performed By: #### 2 4323-8, HSTNT, 2776-05, ####[facility]ATORYCLIA [id number] [address] ALT With P-5'-P [Catalytic activity/Vol] 57 U/L High 10-54 [facility] Comment on above: Order Comment: Speci men Type: BLOOD SPECIMEN Performed By: #### 2 4323-8, HSTNT, 2776-05, ####[facility]ORATORYCLIA [id number] [address] Anion gap [Moles/Vol] 9 mmol/L Normal 9-18 [facility] Comment on above: Order Comment: Speci men Type: BLOOD SPECIMEN Performed By: #### 2 4323-8, HSTNT, 2776-05, ####[facility]ORY[facility] [id number] [address] AST With P-5'-P [Catalytic activity/Vol] 33 U/L Normal 14-40 [facility] Comment on above: Order Comment: Speci men Type: BLOOD SPECIMEN Performed By: #### 2 4323-8, HSTNT, 2776-05, ####[facility]ORYCL[facility] [id number] [address] [facility] Bilirubin [Mass/Vol] 0.5 mg/dL Normal 0.2-1.3 [facility] Comment on above: Order Comment: Speci men Type: BLOOD SPECIMEN Performed By: #### 2 4323-8, HSTNT, 2776-05, ####[facility]ATORYCLIA [id number] [address] STATES OF [facility] Calcium [Mass/Vol] 8.8 mg/dL Normal 8.5-10.2 [facility] Comment on above: Order Comment: Speci men Type: BLOOD SPECIMEN Performed By: #### 2 4323-8, HSTNT, 2776-05, ####[facility]ATORYCLIA [id number] [address] STATES OF [facility] Chloride [Moles/Vol] 124 mmol/L High 97-105 [facility] Comment on above: Order Comment: Speci men Type: BLOOD SPECIMEN Performed By: #### 2 4323-8, HSTNT, 2776-05, ####[facility]ATORYCLIA [id number] [address] STATES OF [facility] CO2 [Moles/Vol] 29 mmol/L Normal 22-30 [facility] Comment on above: Order Comment: Speci men Type: BLOOD SPECIMEN Performed By: #### 2 4323-8, HSTNT, 2776-05, ####[facility]ORYCLIA [id number] [address] [place] Creatinine [Mass/Vol] 0.73 mg/dL Normal 0.73-1.22 [facility] Comment on above: Order Comment: Speci men Type: BLOOD SPECIMEN Performed By: #### 2 4323-8, HSTNT, 2776-05, ####[facility]ORYCLIA [id number] [address] [place] GFR/1.73 sq [...] #### 2 4323-8, HSTNT, 2776-05, ####[facility]ATORYCLIA [id number] [place] [address] [place] Glucose [Mass/Vol] 137 mg/dL High 74-99 [facility] Comment on above: Order Comment: Speci men Type: BLOOD SPECIMEN Result Comment: The [place] [employer] (ADA) provides guidance for cutoff [...] Standards of Medical Care in Diabetes 2016, [place] [employer]. Diabetes Care. 2016.39(Suppl 1). Performed By: #### 2 4323-8, HSTNT, 2776-05, ####[facility]ATORYCLIA [id number] [place] [address] [place] Potassium [Moles/Vol] 3.6 mmol/L Low 3.7-5.1 [facility] Comment on above: Order Comment: Speci men Type: BLOOD SPECIMEN Performed By: #### 2 4323-8, HSTNT, 2776-05, ####[facility]ATORYCLIA [id number] [address] Protein [Mass/Vol] 5.9 g/dL Low 6.3-8.0 [facility] Comment on above: Order Comment: Speci men Type: BLOOD SPECIMEN Performed By: #### 2 4323-8, HSTNT, 2777-1, 09411-3 ####[facility]ATORYCLIA [id number] [address] Sodium [Moles/Vol] 162 mmol/L High 136-144 [facility] Comment on above: Order Comment: Speci men Type: BLOOD SPECIMEN Performed By: #### 2 4323-8, HSTNT, 2776-, ####[facility]ORYCLIA [id number] [address] Urea nitrogen [Mass/Vol] 33 mg/dL High 9-24 [facility] Comment on above: Order Comment: Speci men Type: BLOOD SPECIMEN Performed By: #### 2 4323-8, HSTNT, 2776-05, ####[facility]ORYCLIA [id number] [address] HIGH SENSITIVITY TROPONIN To n 06-14-2021 [...] Performed By: #### H STNT ####[facility]ATORYCLIA [id number] [address] HIGH SENSITIVITY TAMIKO 22 ng/L High [...] Performed By: #### 2 4323-8, HSTNT, 2776-05, ####[facility]ORYCLIA [id number] [address] Magnesium SerPl-mCncon 06-14 Magnesium [Mass/Vol] 2.9 mg/dL High 1.7-2.3 [facility] Comment on above: Order Comment: Speci men Type: BLOOD SPECIMEN Performed By: #### 2 4323-8, HSTNT, 2776-05, ####[facility]ATORYCLIA [id number] [address] Magnesium [Mass/Vol] 3.0 mg/dL High 1.7-2.3 [facility] Comment on above: Order Comment: Speci men Type: BLOOD SPECIMEN Performed By: #### 2 4321-2, 2776-05, ####[facility]ATORYCLIA [id number] [address] NURSING PROGon 06-14-2021 NURSING PROG Normal [facility] NUTRITIONon 06-14-2021 NUTRITION Normal [facility] Phosphate SerPl-mCncon 06-14 Phosphate [Mass/Vol] 2.4 mg/dL Low 2.7-4.8 [facility] Comment on above: Order Comment: Speci men Type: BLOOD SPECIMEN Performed By: #### 2 4323-8, HSTNT, 2776-05, ####[facility]ORYCLIA [id number] [address] Phosphate [Mass/Vol] 3.2 mg/dL Normal 2.7-4.8 [facility] Comment on above: Order Comment: Speci men Type: BLOOD SPECIMEN Performed By: #### 2 4321-2, 2776-05, ####[facility]ATORYCLIA [id number] [place], [place] [id number] [place] [address] [place] THERAPY NTon 06-14-2021 THERAPY [...] #### 2 4321-2, , 2776-05 ####[facility]ATORYCLIA [id number] [address] STATES OF [facility] Calcium [Mass/Vol] 8.8 mg/dL Normal 8.5-10.2 [facility] Comment on above: Order Comment: Speci men Type: BLOOD SPECIMEN Performed By: #### 2 4321-2, , 2776-05 ####[facility]ORYCLIA [id number] [address] [place] Chloride [Moles/Vol] 120 mmol/L High 97-105 [facility] Comment on above: Order Comment: Speci men Type: BLOOD SPECIMEN Performed By: #### 2 4321-2, , 2776-05 ####[facility]ORYCLIA [id number] [place] [id number] [place] CO2 [Moles/Vol] 28 mmol/L Normal 22-30 [facility] Comment on above: Order Comment: Speci men Type: BLOOD SPECIMEN Performed By: #### 2 4321-2, , 2776-05 ####[facility]ORYCLIA [id number] [place] [address] [place] Creatinine [Mass/Vol] 0.78 mg/dL Normal 0.73-1.22 [facility] Comment on above: Order Comment: Speci [facility] Type: BLOOD SPECIMEN Performed By: #### 2 4321-2, 11700-4, 2777-1 ####[facility]ATORYCLIA [id number] [place] [address] [place] GFR/1.73 sq M.predicted [...] actual GFR. Performed By: #### 2 4321-2, 72114-4, 277-1 ####[facility]ATORYCLIA [id number] [place] [address] [place] Glucose [Mass/Vol] 126 mg/dL High 74-99 [facility] Comment on above: Order Comment: [facility] Type: BLOOD SPECIMEN Result Comment: The [place] Diabetes [employer] (ADA) provides guidance for cutoff [...] Standards of Medical Care in Diabetes 2016, [place] [employer]. Diabetes Care. 2016.39(Suppl 1). Performed By: #### 2 4321-2, , 2776-05 ####[facility]ATORYCLIA [id number] [place], [place] [address] [place] [address] [place] [facility] Potassium [Moles/Vol] 3.6 mmol/L Low 3.7-5.1 [facility] Comment on above: Order Comment: Speci men Type: BLOOD SPECIMEN Performed By: #### 2 4321-2, , 2776-05 ####[facility]ATORYCLIA [id number] [place], [place] [address] [place] [address] [place] Sodium [Moles/Vol] 155 mmol/L High 136-144 [facility] Comment on above: Order Comment: Speci men Type: BLOOD SPECIMEN Performed By: #### 2 1-2, , 2776-05 ####[facility]ORYCLIA [id number] [place] [address] [place] Urea nitrogen [Mass/Vol] 36 mg/dL High 9-24 [facility] Comment on above: Order Comment: Speci men Type: BLOOD SPECIMEN Performed By: #### 2 1-2, , 2776-05 ####[facility]ATORYCLIA [id number] [address] STATES OF [facility] Anion gap [Moles/Vol] 6 mmol/L Low 9-18 [facility] Comment on above: Order Comment: Speci men Type: BLOOD SPECIMEN Performed By: #### 2 4321-2, 2776-05, ####[facility]ATORYCLIA [id number] [place] [address] [place] Calcium [Mass/Vol] 6.5 mg/dL Low 8.5-10.2 [facility] Comment on above: Order Comment: Speci men Type: BLOOD SPECIMEN Performed By: #### 2 4321-2, 2776-05, ####[facility]ORYCLIA [id number] [place] [address] [place] Chloride [Moles/Vol] 124 mmol/L High 97-105 [facility] Comment on above: Order Comment: Speci men Type: BLOOD SPECIMEN Performed By: #### 2 4321-2, 2776-05, ####[facility]ATORYCLIA [id number] [place] [address] [place] CO2 [Moles/Vol] 24 mmol/L Normal 22-30 [facility] Comment on above: Order Comment: Speci men Type: BLOOD SPECIMEN Performed By: #### 2 4321-2, 2776-05, ####[facility]ATORYCLIA [id number] [place] [address] [place] Creatinine [Mass/Vol] 0.61 mg/dL Low 0.73-1.22 [facility] Comment on above: Order Comment: Speci men Type: BLOOD SPECIMEN Performed By: #### 2 4321-2, 2776-05, ####[facility]ATORYCLIA [id number] [address] [place] GFR/1.73 sq [...] By: #### 2 4321-2, 2776-05, ####[facility]ATORYCLIA [id number] [place] [address] [place] Glucose [Mass/Vol] 100 mg/dL High 74-99 [facility] Comment on above: Order Comment: Speci men Type: BLOOD SPECIMEN Result Comment: The [place] [employer] (ADA) provides guidance for cutoff [...] Standards of Medical Care in Diabetes 2016, [place] [employer]. Diabetes Care. 2016.39(Suppl 1). Performed By: #### 2 4321-2, 2776-05, ####[facility]ATORYCLIA [id number] [address] STATES OF [facility] Potassium [Moles/Vol] 2.7 mmol/L Low 3.7-5.1 [facility] Comment on above: Order Comment: Speci men Type: BLOOD SPECIMEN Performed By: #### 2 4321-2, 2776-05, ####[facility]ATORYCLIA [id number] [address] STATES [facility] Sodium [Moles/Vol] 154 mmol/L High 136-144 [facility] Comment on above: Order Comment: Speci men Type: BLOOD SPECIMEN Performed By: #### 2 4321-2, 2776-05, ####[facility]ATORYCLIA [id number] [place], [place] [address] [place] [address] [place] Urea nitrogen [Mass/Vol] 29 mg/dL High 9-24 [facility] Comment on above: Order Comment: Speci men Type: BLOOD SPECIMEN Performed By: #### 2 4321-2, 2776-05, ####[facility]ATORYCLIA [id number] [address] OF [facility] CASE MANAGEMon 06-13-2021 CASE MANAGEM Normal [facility] CBC panel Auto (Bld)on 06-13 Erythrocyte distribution width (RBC) [Ratio] 15.9 % High 11.5-15.0 [facility] Comment on above: Order Comment: Speci men Type: BLOOD SPECIMEN Performed By: #### 5 8410-2 ####[facility]ATORYCLIA [id number] [address] Hematocrit (Bld) [Volume fraction] 34.3 % Low 39.0-51.0 [facility] Comment on above: Order Comment: Speci men Type: BLOOD SPECIMEN Performed By: #### 5 8410-2 ####[facility]ORYCLIA [id number] [address] Hemoglobin (Bld) [Mass/Vol] 9.9 g/dL Low 13.0-17.0 [facility] Comment on above: Order Comment: Speci men Type: BLOOD SPECIMEN Performed By: #### 5 8410-2 ####[facility]ATORYCLIA [id number] [address] MCH (RBC) [Entitic mass] 27.3 pg Normal 26.0-34.0 [facility] Comment on above: Order Comment: Speci men Type: BLOOD SPECIMEN Performed By: #### 5 8410-2 ####[facility]ORYCLIA [id number] [address] MCHC (RBC) [Mass/Vol] 28.9 g/dL Low 30.5-36.0 [facility] Comment on above: Order Comment: Speci men Type: BLOOD SPECIMEN Performed By: #### 5 8410-2 ####[facility]ATORYCLIA [id number] [address] MCV (RBC) [Entitic vol] 94.5 fL Normal 80.0-100.0 [facility] Comment on above: Order Comment: Speci men Type: BLOOD SPECIMEN Performed By: #### 5 8410-2 ####[facility]ATORYCLIA [id number] [address] Nucleated RBC (Bld) [#/Vol] 10*3/uL Normal <0.01 [facility] Comment on above: Order Comment: Speci men Type: BLOOD SPECIMEN Performed By: #### 5 8410-2 ####[facility]ORYCLIA [id number] [address] Platelet mean volume (Bld) [Entitic vol] 11.3 fL Normal 9.0-12.7 [facility] Comment on above: Order Comment: Speci men Type: BLOOD SPECIMEN Performed By: #### 5 8410-2 ####[facility]ORYCLIA [id number] [address] Platelets (Bld) [#/Vol] 269 10*3/uL Normal 150-400 [facility] Comment on above: Order Comment: Speci men Type: BLOOD SPECIMEN Performed By: #### 5 8410-2 ####[facility]ORYCLIA [id number] [address] RBC (Bld) [#/Vol] 3.63 10*6/uL Low 4.20-6.00 [facility] Comment on above: Order Comment: Speci men Type: BLOOD SPECIMEN Performed By: #### 5 8410-2 ####[facility]ORYCLIA [id number] [address] WBC (Bld) [#/Vol] 12.77 10*3/uL High 3.70-11.00 [facility] Comment on above: Order Comment: Speci men Type: BLOOD SPECIMEN Performed By: #### 5 8410-2 ####[facility]ATORYCLIA [id number] [address] Gas and Carbon monoxide pane l (BldV)on 06-13-2021 Base excess Calc (BldV) [Moles/Vol] 5.7 mmol/L High 0-2 [facility] Comment on above: Order Comment: Speci men Type: VENOUS BLOOD SPECIMEN Performed By: #### 2 4344-4 ####[facility]CLIA [id number] [address] Body temperature 99.5 [degF] Normal [facility] Comment on above: Order Comment: Speci men Type: VENOUS BLOOD SPECIMEN Performed By: #### 2 4344-4 ####[facility]ORYCLIA [id number] [address] CALCIUM IONIZED, PH CORRECTED 1.24 mmol/L Normal 1.08-1.30 [facility] Comment on above: Order Comment: Speci men Type: VENOUS BLOOD SPECIMEN Performed By: #### 2 4344-4 ####[facility]ORYCLIA [id number] [address] Calcium.ionized (BldV) [Mass/Vol] 1.23 mmol/L Normal 1.08-1.30 [facility] Comment on above: Order Comment: Speci men Type: VENOUS BLOOD SPECIMEN Performed By: #### 2 4344-4 ####[facility]ORYCLIA [id number] [address] Carboxyhemoglobin (BldV) [Mass fraction] 1.2 % Normal 0.0-2.0 [facility] Comment on above: Order Comment: Speci men Type: VENOUS BLOOD SPECIMEN Result Comment: Carb oxyhemoglobin Reference Range for Smokers: 2.0-8.0% Performed By: #### 2 4344-4 ####[facility]ORYCLIA [id number] [address] CO2 (BldV) [Partial pressure] 48 mm[Hg] Normal 42-55 [facility] Comment on above: Order Comment: Speci men Type: VENOUS BLOOD SPECIMEN Performed By: #### 2 4344-4 ####[facility]CLIA [id number] [address] CO2 [Moles/Vol] 28.2 mmol/L Normal 25-29 [facility] Comment on above: Order Comment: Speci men Type: VENOUS BLOOD SPECIMEN Performed By: #### 2 4344-4 ####[facility]ORYCLIA [id number] [address] CO2 adjusted to patient's actual temperature (BldV) [Partial pressure] 49 mmHg Normal 42-55 [facility] Comment on above: Order Comment: Speci men Type: VENOUS BLOOD SPECIMEN Performed By: #### 2 4344-4 ####[facility]ORYCLIA [id number] [address] Glucose [Mass/Vol] 131 mg/dL High 60-105 [facility] Comment on above: Order Comment: Speci men Type: VENOUS BLOOD SPECIMEN Performed By: #### 2 4344-4 ####[facility]ORYCLIA [id number] [address] HCO3 (Bld) [Moles/Vol] 30.6 mmol/L High 24-28 [facility] Comment on above: Order Comment: Speci men Type: VENOUS BLOOD SPECIMEN Performed By: #### 2 4344-4 ####[facility]CLIA [id number] [address] Hematocrit (Bld) [Volume fraction] 32.8 % Low 39.0-51.0 [facility] Comment on above: Order Comment: Speci men Type: VENOUS BLOOD SPECIMEN Performed By: #### 2 4344-4 ####[facility]CLIA [id number] [address] Hemoglobin (Bld) [Mass/Vol] 10.6 g/dL Low 13.0-17.0 [facility] Comment on above: Order Comment: Speci men Type: VENOUS BLOOD SPECIMEN Performed By: #### 2 4344-4 ####[facility]ORYCLIA [id number] [address] [place] 6 Liters/min Normal [facility] Comment on above: Order Comment: Speci men Type: VENOUS BLOOD SPECIMEN Performed By: #### 2 4344-4 ####[facility]ORYCLIA [id number] [place], [place] [address] [place] [address] [place] Methemoglobin (Bld) [Mass fraction] 1.0 % Normal 0.0-1.5 [facility] Comment on above: Order Comment: Speci men Type: VENOUS BLOOD SPECIMEN Performed By: #### 2 4344-4 ####[facility]ORYCLIA [id number] [address] O2 THERAPY NC = Nasal Cannula Normal [facility] Comment on above: Order Comment: Speci men Type: VENOUS BLOOD SPECIMEN Performed By: #### 2 4344-4 ####[facility]ORYCLIA [id number] [address] Oxygen (BldV) [Partial pressure] 42 mm[Hg] Normal 35-45 [facility] Comment on above: Order Comment: Speci men Type: VENOUS BLOOD SPECIMEN Performed By: #### 2 4344-4 ####[facility]ORYCLIA [id number] [address] Oxygen adjusted to patient's actual temperature (BldV) [Partial pressure] 43.8 mmHg Normal 35-45 [facility] Comment on above: Order Comment: Speci men Type: VENOUS BLOOD SPECIMEN Performed By: #### 2 4344-4 ####[facility]ORYCLIA [id number] [address] OF [place] Oxygen saturation in Blood 76.7 % Normal 60-85 [facility] Comment on above: Order Comment: Speci men Type: VENOUS BLOOD SPECIMEN Performed By: #### 2 4344-4 ####[facility]ORYCLIA [id number] [address] Oxyhemoglobin (BldV) [Mass fraction] 75 % Normal 60-85 [facility] Comment on above: Order Comment: Speci men Type: VENOUS BLOOD SPECIMEN Performed By: #### 2 4344-4 ####[facility]ORYCLIA [id number] pH (BldV) 7.42 [pH] Normal 7.32-7.42 [facility] Comment on above: Order Comment: Speci men Type: VENOUS BLOOD SPECIMEN Performed By: #### 2 4344-4 ####[facility]ORYCLIA [id number] [address] pH adjusted to patient's actual temperature (BldV) 7.41 Normal 7.32-7.42 [facility] Comment on above: Order Comment: Speci men Type: VENOUS BLOOD SPECIMEN Performed By: #### 2 4344-4 ####[facility]ORYCLIA [id number] [address] Potassium [Moles/Vol] 3.5 mmol/L Normal 3.5-5.0 [facility] Comment on above: Order Comment: Speci men Type: VENOUS BLOOD SPECIMEN Performed By: #### 2 4344-4 ####[facility]ATORYCLIA [id number] [address] STATES OF [facility] Sodium [Moles/Vol] 157 mmol/L High 136-144 [facility] Comment on above: Order Comment: Speci men Type: VENOUS BLOOD SPECIMEN Performed By: #### 2 4344-4 ####[facility]ORYCLIA [id number] [address] [place] Magnesium SerPl-mCncon 06-13 Magnesium [Mass/Vol] 3.0 mg/dL High 1.7-2.3 [facility] Comment on above: Order Comment: Speci men Type: BLOOD SPECIMEN Performed By: #### 2 4321-2, 49935-0, 2776-05 ####[facility]ATORYCLIA [id number] [address] OF [facility] Magnesium [Mass/Vol] 2.2 mg/dL Normal 1.7-2.3 [facility] Comment on above: Order Comment: Speci men Type: BLOOD SPECIMEN Performed By: #### 2 4321-2, 2776, ####[facility]ATORYCLIA [id number] [place] [address] [place] Phosphate SerPl-mCncon 06-13 Phosphate [Mass/Vol] 2.2 mg/dL Low 2.7-4.8 [facility] Comment on above: Order Comment: Speci men Type: BLOOD SPECIMEN Performed By: #### 2 4321-2, , 2776-05 ####[facility]ATORYCLIA [id number] [place] [address] [place] OF [facility] Phosphate [Mass/Vol] 1.8 mg/dL Low 2.7-4.8 [facility] Comment on above: Order Comment: Speci men Type: BLOOD SPECIMEN Performed By: #### 2 4321-2, 2776-05, ####[facility]ATORYCLIA [id number] [address] STATES [place] XR CHEST [...] Performed By: #### 6 11-4 ####[facility]ATORYCLIA [id number] [place] [address] [place] Basic metabolic 2000 panelon 06-12-2021 Anion gap [Moles/Vol] 6 mmol/L Low 9-18 [facility] Comment on above: Order Comment: Speci men Type: BLOOD SPECIMEN Performed By: #### 2 777-1, 03681-6, ####[facility]ATORYCLIA [id number] [place] [address] [place] Calcium [Mass/Vol] 8.7 mg/dL Normal 8.5-10.2 [facility] Comment on above: Order Comment: Speci men Type: BLOOD SPECIMEN Performed By: #### 2 777-1, 35199-8, ####[facility]ORYCLIA [id number] [address] Chloride [Moles/Vol] 118 mmol/L High 97-105 [facility] Comment on above: Order Comment: Speci men Type: BLOOD SPECIMEN Performed By: #### 2 777-1, 40499-7, ####[facility]ORYCLIA [id number] [address] [place] CO2 [Moles/Vol] 28 mmol/L Normal 22-30 [facility] Comment on above: Order Comment: Speci men Type: BLOOD SPECIMEN Performed By: #### 2 777-1, 97913-8, ####[facility]ORYCLIA [id number] [address] [place] Creatinine [Mass/Vol] 0.77 mg/dL Normal 0.73-1.22 [facility] Comment on above: Order Comment: Speci men Type: BLOOD SPECIMEN Performed By: #### 2 777-1, , ####[facility]ORYCLIA [id number] [address] [place] GFR/1.73 sq [...] By: #### 2 777-1, , ####[facility]ATORYCLIA [id number] [place] [address] [place] Glucose [Mass/Vol] 116 mg/dL High 74-99 [facility] Comment on above: Order Comment: Speci men Type: BLOOD SPECIMEN Result Comment: The [place] [employer] (ADA) provides guidance for cutoff [...] Standards of Medical Care in Diabetes 2016, [place] [employer]. Diabetes Care. 2016.39(Suppl 1). Performed By: #### 2 777-1, , ####[facility]ATORYCLIA [id number] [place] [address] [place] Potassium [Moles/Vol] 4.0 mmol/L Normal 3.7-5.1 [facility] Comment on above: Order Comment: Speci men Type: BLOOD SPECIMEN Performed By: #### 2 777-1, , ####[facility]ORYCLIA [id number] [place] [address] [place] Sodium [Moles/Vol] 152 mmol/L High 136-144 [facility] Comment on above: Order Comment: Speci men Type: BLOOD SPECIMEN Performed By: #### 2 777-1, , ####[facility]ORYCL[facility] [id number] [place] [address] [place] Urea nitrogen [Mass/Vol] 34 mg/dL High 9-24 [facility] Comment on above: Order Comment: Speci men Type: BLOOD SPECIMEN Performed By: #### 2 777-1, 59433-5, 24253-3 ####[facility]ORY[facility] [id number] [address] CBC panel Auto (Bld)on 06-12 Erythrocyte distribution width (RBC) [Ratio] 16.1 % High 11.5-15.0 [facility] Comment on above: Order Comment: Speci men Type: BLOOD SPECIMEN Performed By: #### 5 8410-2 ####[facility]ORY[facility] [id number] [address] Hematocrit (Bld) [Volume fraction] 32.8 % Low 39.0-51.0 [facility] Comment on above: Order Comment: Speci men Type: BLOOD SPECIMEN Performed By: #### 5 8410-2 ####[facility]ORYCL[facility] [id number] [address] Hemoglobin (Bld) [Mass/Vol] 9.9 g/dL Low 13.0-17.0 [facility] Comment on above: Order Comment: Speci men Type: BLOOD SPECIMEN Performed By: #### 5 8410-2 ####[facility]ATORYCLIA [id number] [address] MCH (RBC) [Entitic mass] 28.4 pg Normal 26.0-34.0 [facility] Comment on above: Order Comment: Speci men Type: BLOOD SPECIMEN Performed By: #### 5 8410-2 ####[facility]ATORYCLIA [id number] [address] MCHC (RBC) [Mass/Vol] 30.2 g/dL Low 30.5-36.0 [facility] Comment on above: Order Comment: Speci men Type: BLOOD SPECIMEN Performed By: #### 5 8410-2 ####[facility]ORYCLIA [id number] [address] MCV (RBC) [Entitic vol] 94.3 fL Normal 80.0-100.0 [facility] Comment on above: Order Comment: Speci men Type: BLOOD SPECIMEN Performed By: #### 5 8410-2 ####[facility]ORYCLIA [id number] [address] Nucleated RBC (Bld) [#/Vol] 10*3/uL Normal <0.01 [facility] Comment on above: Order Comment: Speci men Type: BLOOD SPECIMEN Performed By: #### 5 8410-2 ####[facility]ATORYCLIA [id number] [address] Platelet mean volume (Bld) [Entitic vol] 11.2 fL Normal 9.0-12.7 [facility] Comment on above: Order Comment: Speci men Type: BLOOD SPECIMEN Performed By: #### 5 8410-2 ####[facility]ATORYCLIA [id number] [address] Platelets (Bld) [#/Vol] 218 10*3/uL Normal 150-400 [facility] Comment on above: Order Comment: Speci men Type: BLOOD SPECIMEN Performed By: #### 5 8410-2 ####[facility]ATORYCLIA [id number] [address] RBC (Bld) [#/Vol] 3.48 10*6/uL Low 4.20-6.00 [facility] Comment on above: Order Comment: Speci men Type: BLOOD SPECIMEN Performed By: #### 5 8410-2 ####[facility]ATORYCLIA [id number] [address] WBC (Bld) [#/Vol] 13.33 10*3/uL High 3.70-11.00 [facility] Comment on above: Order Comment: Speci men Type: BLOOD SPECIMEN Performed By: #### 5 8410-2 ####[facility]ATORYCLIA [id number] [address] CONSULT PROGon 06-12-2021 CONSULT PROG Normal [facility] CT DRN PLACE PERIT/RETROP FL BIon 06-12-[address] PERIT/RETROP FL BI Normal [facility] HISTORY PHYSICALon HISTORY PHYSICAL Normal [facility] Magnesium SerPl-mCncon 06-12 Magnesium [Mass/Vol] 2.7 mg/dL High 1.7-2.3 [facility] Comment on above: Order Comment: Speci men Type: BLOOD SPECIMEN Performed By: #### 2 777-1, 05486-8, 52692-3 ####[facility]ATORYCLIA [id number] [address] PT panel Coag (PPP)on 2021 INR Coag (PPP) [Relative time] 1.1 {INR} Normal 0.9-1.3 [facility] Comment on above: Order Comment: Speci men Type: BLOOD SPECIMEN Result Comment: Yris min K Antagonist (VKA) Therapeutic Range: INR 2 to 3 (Target INR of 2.5)Note: For patients treated with VKA drugs, such as warfarin, the [place] [employer] 2012 Guideline recommends [...] al. Chest 2012, 141:7S-47SNishimura RA, et al. [facility] 2017, 70: 252-289 Performed By: #### 3 4528-0 ####[facility]ORATORYCLIA [id number] [place] [id number] [facility] PT Coag (PPP) [Time] 11.9 s Normal 9.7-13.0 [facility] Comment on above: Order Comment: Speci men Type: BLOOD SPECIMEN Performed By: #### 3 4528-0 ####[facility]ATORYCLIA [id number] [address] Phosphate SerPl-mCncon 06-12 Phosphate [Mass/Vol] 2.2 mg/dL Low 2.7-4.8 [facility] Comment on above: Order Comment: Speci men Type: BLOOD SPECIMEN Performed By: #### 2 777-1, 68050-3, 65157-5 ####[facility]ORATORYCLIA [id number] [address] XR ABDOMEN 1V SUPINEon 06-12 XR ABDOMEN 1V SUPINE Normal [facility] ALLIED HEALTHon 06-11-2021 ALLIED HEALTH Normal [facility] Bacteria Bld Culton 06-11-19 22 Bacteria identified Cx Nom (Bld) CULTURE, BLOOD: No growth 5 days Normal [facility] Comment on above: Performed By: #### 6 00-7 ####[facility]ATORYCLIA [id number] [address] Bacteria identified Cx Nom (Bld) CULTURE, BLOOD: No growth 5 days Normal [facility] Comment on above: Performed By: #### 6 00-7 ####[facility]ORATORYCLIA [id number] [address] Bacteria Ur Culton 2 Bacteria identified Cx Nom (U) CULTURE, URINE: No growth (<1,000 CFU/ml) [facility] Comment on above: Performed By: #### 6 30-4 ####[facility]ATORYCLIA [id number] [address] Basic metabolic 2000 panelon 06-11-2021 Anion gap [Moles/Vol] 9 mmol/L Normal 9-18 [facility] Comment on above: Order Comment: Speci men Type: BLOOD SPECIMEN Performed By: #### 1 9123-9, 2777, 06443-5 ####[facility]ORATORYCLIA [id number] [address] STATES [facility] Calcium [Mass/Vol] 8.5 mg/dL Normal 8.5-10.2 [facility] Comment on above: Order Comment: Speci men Type: BLOOD SPECIMEN Performed By: #### 1 9123-9, 2777, 63709-4 ####[facility]ATORYCLIA [id number] [address] Chloride [Moles/Vol] 118 mmol/L High 97-105 [facility] Comment on above: Order Comment: Speci men Type: BLOOD SPECIMEN Performed By: #### 1 9123-9, 2776-05, ####[facility]ATORYCLIA [id number] [address] CO2 [Moles/Vol] 27 mmol/L Normal 22-30 [facility] Comment on above: Order Comment: Speci men Type: BLOOD SPECIMEN Performed By: #### 1 9123-9, 2776-05, ####[facility]ORATORYCLIA [id number] [address] STATES OF [facility] Creatinine [Mass/Vol] 0.75 mg/dL Normal 0.73-1.22 [facility] Comment on above: Order Comment: Speci men Type: BLOOD SPECIMEN Performed By: #### 1 9123-9, 27711-04, ####[facility]ORATORYCLIA [id number] [address] [place] GFR/1.73 sq [...] GFR. Performed By: #### 1 9123-9, 2777-, 93903-5 ####[facility]ORATORYCLIA [id number] [address] OF [facility] Glucose [Mass/Vol] 142 mg/dL High 74-99 [facility] Comment on above: Order Comment: Speci men Type: BLOOD SPECIMEN Result Comment: The [place] [employer] (ADA) provides guidance for cutoff [...] Standards of Medical Care in Diabetes 2016, [place] [employer]. Diabetes Care. 2016.39(Suppl 1). Performed By: #### 1 9123-9, 2777, 53193-9 ####[facility]ORATORYCLIA [id number] [address] STATES [place] [facility] Potassium [Moles/Vol] 3.6 mmol/L Low 3.7-5.1 [facility] Comment on above: Order Comment: Speci men Type: BLOOD SPECIMEN Performed By: #### 1 9123-9, 2777, 48342-9 ####[facility]ATORYCLIA [id number] [address] STATES [facility] Sodium [Moles/Vol] 154 mmol/L High 136-144 [facility] Comment on above: Order Comment: Speci men Type: BLOOD SPECIMEN Performed By: #### 1 9123-9, 2777-1, 04714-1 ####[facility]ATORYCLIA [id number] [address] Urea nitrogen [Mass/Vol] 31 mg/dL High 9-24 [facility] Comment on above: Order Comment: Speci men Type: BLOOD SPECIMEN Performed By: #### 1 9123-9, 2777-1, 16458-1 ####[facility]ORATORYCLIA [id number] [address] C diff Tox gens Stl Ql EMGAN+p robeon 06-11-2021 C. difficile toxin genes MEGAN+probe Ql (Stl) Negative Normal Negative for C. difficile toxin by PCR [facility] Comment on above: Order Comment: Speci men Type: STOOL SPECIMEN Performed By: #### 5 4067-4 ####[facility]ORATORYCLIA [id number] [address] STATES [facility] CBC W Auto Differential pane l (Bld)on 06-11-2021 Basophils (Bld) [#/Vol] 0.03 10*3/uL Normal <0.11 [facility] Comment on above: Order Comment: Speci men Type: BLOOD SPECIMEN Performed By: #### 5 7021-8 ####[facility]ORATORYCLIA [id number] [address] Basophils/100 WBC (Bld) 0.2 % Normal [facility] Comment on above: Order Comment: Speci men Type: BLOOD SPECIMEN Performed By: #### 5 7021-8 ####[facility]ORATORYCLIA [id number] [address] Differential cell count method Nom (Bld) Auto Normal [facility] Comment on above: Order Comment: Speci men Type: BLOOD SPECIMEN Performed By: #### 5 7021-8 ####[facility]ATORYCLIA [id number] [address] STATES [facility] Eosinophils (Bld) [#/Vol] 0.19 10*3/uL Normal <0.46 [facility] Comment on above: Order Comment: Speci men Type: BLOOD SPECIMEN Performed By: #### 5 7021-8 ####[facility]ORATORYCLIA [id number] [address] Eosinophils/100 WBC (Bld) 1.5 % Normal [facility] Comment on above: Order Comment: Speci men Type: BLOOD SPECIMEN Performed By: #### 5 7021-8 ####[facility]ATORYCLIA [id number] [address] Erythrocyte distribution width (RBC) [Ratio] 16.3 % High 11.5-15.0 [facility] Comment on above: Order Comment: Speci men Type: BLOOD SPECIMEN Performed By: #### 5 7021-8 ####[facility]ORATORYCLIA [id number] [address] Hematocrit (Bld) [Volume fraction] 32.1 % Low 39.0-51.0 [facility] Comment on above: Order Comment: Speci men Type: BLOOD SPECIMEN Performed By: #### 5 7021-8 ####[facility]ATORYCLIA [id number] [address] Hemoglobin (Bld) [Mass/Vol] 9.3 g/dL Low 13.0-17.0 [facility] Comment on above: Order Comment: Speci men Type: BLOOD SPECIMEN Performed By: #### 5 7021-8 ####[facility]ORATORYCLIA [id number] [address] IMMATURE GRAN % 0.6 % Normal [facility] Comment on above: Order Comment: Speci men Type: BLOOD SPECIMEN Performed By: #### 5 7021-8 ####[facility]ORYCLIA [id number] [address] IMMATURE GRAN ABS 0.08 k/uL Normal <0.10 [facility] Comment on above: Order Comment: Speci men Type: BLOOD SPECIMEN Performed By: #### 5 7021-8 ####[facility]ATORYCLIA [id number] [address] Lymphocytes (Bld) [#/Vol] 1.65 10*3/uL Normal 1.00-4.00 [facility] Comment on above: Order Comment: Speci men Type: BLOOD SPECIMEN Performed By: #### 5 7021-8 ####[facility]ATORYCLIA [id number] [address] Lymphocytes/100 WBC (Bld) 12.8 % Normal [facility] Comment on above: Order Comment: Speci men Type: BLOOD SPECIMEN Performed By: #### 5 7021-8 ####[facility]ORATORYCLIA [id number] [address] MCH (RBC) [Entitic mass] 27.2 pg Normal 26.0-34.0 [facility] Comment on above: Order Comment: Speci men Type: BLOOD SPECIMEN Performed By: #### 5 7021-8 ####[facility]ATORYCLIA [id number] [address] MCHC (RBC) [Mass/Vol] 29.0 g/dL Low 30.5-36.0 [facility] Comment on above: Order Comment: Speci men Type: BLOOD SPECIMEN Performed By: #### 5 7021-8 ####[facility]ATORYCLIA [id number] [address] MCV (RBC) [Entitic vol] 93.9 fL Normal 80.0-100.0 [facility] Comment on above: Order Comment: Speci men Type: BLOOD SPECIMEN Performed By: #### 5 7021-8 ####[facility]ATORYCLIA [id number] [address] Monocytes (Bld) [#/Vol] 0.68 10*3/uL Normal <0.87 [facility] Comment on above: Order Comment: Speci men Type: BLOOD SPECIMEN Performed By: #### 5 7021-8 ####[facility]ORYCLIA [id number] [address] Monocytes/100 WBC (Bld) 5.3 % Normal [facility] Comment on above: Order Comment: Speci men Type: BLOOD SPECIMEN Performed By: #### 5 7021-8 ####[facility]ORYCLIA [id number] [address] Neutrophils (Bld) [#/Vol] 10.22 10*3/uL High 1.45-7.50 [facility] Comment on above: Order Comment: Speci men Type: BLOOD SPECIMEN Performed By: #### 5 7021-8 ####[facility]ORYCLIA [id number] [address] Neutrophils/100 WBC (Bld) 79.6 % Normal [facility] Comment on above: Order Comment: Speci men Type: BLOOD SPECIMEN Performed By: #### 5 7021-8 ####[facility]ORYCLIA [id number] [address] Nucleated RBC (Bld) [#/Vol] 10*3/uL Normal <0.01 [facility] Comment on above: Order Comment: Speci men Type: BLOOD SPECIMEN Performed By: #### 5 7021-8 ####[facility]ORYCLIA [id number] [address] Nucleated RBC/100 WBC (Bld) [Ratio] 0.0 /100 WBC Normal 0.0 [facility] Comment on above: Order Comment: Speci men Type: BLOOD SPECIMEN Performed By: #### 5 7021-8 ####[facility]ATORYCLIA [id number] [address] Platelet mean volume (Bld) [Entitic vol] 11.1 fL Normal 9.0-12.7 [facility] Comment on above: Order Comment: Speci men Type: BLOOD SPECIMEN Performed By: #### 5 7021-8 ####[facility]ATORYCLIA [id number] [address] Platelets (Bld) [#/Vol] 188 10*3/uL Normal 150-400 [facility] Comment on above: Order Comment: Speci men Type: BLOOD SPECIMEN Performed By: #### 5 7021-8 ####[facility]ATORYCLIA [id number] [address] RBC (Bld) [#/Vol] 3.42 10*6/uL Low 4.20-6.00 [facility] Comment on above: Order Comment: Speci men Type: BLOOD SPECIMEN Performed By: #### 5 7021-8 ####[facility]ATORYCLIA [id number] [address] WBC (Bld) [#/Vol] 12.85 10*3/uL High 3.70-11.00 [facility] Comment on above: Order Comment: Speci men Type: BLOOD SPECIMEN Performed By: #### 5 7021-8 ####[facility]ORATORYCLIA [id number] [address] CBC panel Auto (Bld)on 06-11 Erythrocyte distribution width (RBC) [Ratio] 16.2 % High 11.5-15.0 [facility] Comment on above: Order Comment: Speci men Type: BLOOD SPECIMEN Performed By: #### 5 8410-2 ####[facility]ATORYCLIA [id number] [address] Hematocrit (Bld) [Volume fraction] 34.5 % Low 39.0-51.0 [facility] Comment on above: Order Comment: Speci men Type: BLOOD SPECIMEN Performed By: #### 5 8410-2 ####[facility]ATORYCLIA [id number] [address] Hemoglobin (Bld) [Mass/Vol] 10.3 g/dL Low 13.0-17.0 [facility] Comment on above: Order Comment: Speci men Type: BLOOD SPECIMEN Performed By: #### 5 8410-2 ####[facility]ATORYCLIA [id number] [address] MCH (RBC) [Entitic mass] 28.1 pg Normal 26.0-34.0 [facility] Comment on above: Order Comment: Speci men Type: BLOOD SPECIMEN Performed By: #### 5 8410-2 ####[facility]ATORYCLIA [id number] [address] MCHC (RBC) [Mass/Vol] 29.9 g/dL Low 30.5-36.0 [facility] Comment on above: Order Comment: Speci men Type: BLOOD SPECIMEN Performed By: #### 5 8410-2 ####[facility]ATORYCLIA [id number] [address] MCV (RBC) [Entitic vol] 94.3 fL Normal 80.0-100.0 [facility] Comment on above: Order Comment: Speci men Type: BLOOD SPECIMEN Performed By: #### 5 8410-2 ####[facility]ATORYCLIA [id number] [address] Nucleated RBC (Bld) [#/Vol] 10*3/uL Normal <0.01 [facility] Comment on above: Order Comment: Speci men Type: BLOOD SPECIMEN Performed By: #### 5 8410-2 ####[facility]ATORYCLIA [id number] [address] Platelet mean volume (Bld) [Entitic vol] 10.9 fL Normal 9.0-12.7 [facility] Comment on above: Order Comment: Speci men Type: BLOOD SPECIMEN Performed By: #### 5 8410-2 ####[facility]ATORYCLIA [id number] [address] Platelets (Bld) [#/Vol] 210 10*3/uL Normal 150-400 [facility] Comment on above: Order Comment: Speci men Type: BLOOD SPECIMEN Performed By: #### 5 8410-2 ####[facility]ATORYCLIA [id number] [place], [place] [id number] [place] [address] [place] [facility] RBC (Bld) [#/Vol] 3.66 10*6/uL Low 4.20-6.00 [facility] Comment on above: Order Comment: Speci men Type: BLOOD SPECIMEN Performed By: #### 5 8410-2 ####[facility]ATORYCLIA [id number] [address] STATES [facility] WBC (Bld) [#/Vol] 13.03 10*3/uL High 3.70-11.00 [facility] Comment on above: Order Comment: Speci men Type: BLOOD SPECIMEN Performed By: #### 5 8410-2 ####[facility]ATORYCLIA [id number] [address] CONSULT PROGon 06-11-2021 CONSULT PROG Normal [...] SPECIMEN Performed By: #### 1 9123-9, 2777-1, 75034-4 ####[facility]ATORYCLIA [id number] [address] Phosphate SerPl-mCncon 06-11 Phosphate [Mass/Vol] 2.5 mg/dL Low 2.7-4.8 [facility] Comment on above: Order Comment: Speci men Type: BLOOD SPECIMEN Performed By: #### 1 9123-9, 2777-1, 77752-0 ####[facility]ATORYCLIA [id number] [address] OF [facility] Basic metabolic 2000 panelon 06-10-2021 Anion gap [Moles/Vol] 7 mmol/L Low 9-18 [facility] Comment on above: Order Comment: Speci men Type: BLOOD SPECIMEN Performed By: #### 2 777-1, 59324-4, , HFP ####[facility] LABORATORYCLIA [id number] [address] STATES OF [facility] Calcium [Mass/Vol] 8.5 mg/dL Normal 8.5-10.2 [facility] Comment on above: Order Comment: Speci men Type: BLOOD SPECIMEN Performed By: #### 2 777-1, 67890-0, , HFP ####[facility]ORATORYCLIA [id number] [address] STATES [facility] Chloride [Moles/Vol] 118 mmol/L High 97-105 [facility] Comment on above: Order Comment: Speci men Type: BLOOD SPECIMEN Performed By: #### 2 777-1, 98173-1, , HFP ####[facility]ATORYCLIA [id number] [address] [place] CO2 [Moles/Vol] 26 mmol/L Normal 22-30 [facility] Comment on above: Order Comment: Speci men Type: BLOOD SPECIMEN Performed By: #### 2 777-1, 34495-3, , HFP ####[facility]ATORYCLIA [id number] [address] [place] Creatinine [Mass/Vol] 0.70 mg/dL Low 0.73-1.22 [facility] Comment on above: Order Comment: Speci men Type: BLOOD SPECIMEN Performed By: #### 2 777-1, 42348-0, , HFP ####[facility]ATORYCLIA [id number] [address] [place] GFR/1.73 sq [...] actual GFR. Performed By: #### 2 777-1, 21368-4, , [facility] ####[facility]ORATORYCLIA [id number] [place] [address] [place] Glucose [Mass/Vol] 135 mg/dL High 74-99 [facility] Comment on above: Order Comment: [facility] BLOOD SPECIMEN Result Comment: The [place] [employer] (ADA) provides guidance for cutoff [...] Standards of Medical Care in Diabetes 2016, [place] [employer]. Diabetes Care. 2016.39(Suppl 1). Performed By: #### 2 777-1, 91134-3, , [facility] ####[facility]ORATORYCLIA [id number] [place] [address] [place] Potassium [Moles/Vol] 3.9 mmol/L Normal 3.7-5.1 [facility] Comment on above: Order Comment: Speci [facility] Type: BLOOD SPECIMEN Performed By: #### 2 777-1, 52798-7, , [facility] ####[facility]ORATORYCLIA [id number] [place] [address] [place] [address] Sodium [Moles/Vol] 151 mmol/L High 136-144 [facility] Comment on above: Order Comment: Speci men Type: BLOOD SPECIMEN Performed By: #### 2 777-1, 76407-3, , [facility] ####[facility]ORATORYCLIA [id number] [place] [id number] [facility] Urea nitrogen [Mass/Vol] 27 mg/dL High 9-24 [facility] Comment on above: Order Comment: Speci men Type: BLOOD SPECIMEN Performed By: #### 2 777-1, 78721-1, , [facility] ####[facility]ORATORYCLIA [id number] [address] CASE MANAGEMon 06-10-2021 CASE MANAGEM Normal [facility] CBC panel Auto (Bld)on 06-10 Erythrocyte distribution width (RBC) [Ratio] 16.2 % High 11.5-15.0 [facility] Comment on above: Order Comment: Speci men Type: BLOOD SPECIMEN Performed By: #### 5 8410-2 ####[facility]ATORYCLIA [id number] [address] Hematocrit (Bld) [Volume fraction] 34.8 % Low 39.0-51.0 [facility] Comment on above: Order Comment: Speci men Type: BLOOD SPECIMEN Performed By: #### 5 8410-2 ####[facility]ATORYCLIA [id number] [address] Hemoglobin (Bld) [Mass/Vol] 10.2 g/dL Low 13.0-17.0 [facility] Comment on above: Order Comment: Speci men Type: BLOOD SPECIMEN Performed By: #### 5 8410-2 ####[facility]ATORYCLIA [id number] [address] [place] MCH (RBC) [Entitic mass] 27.1 pg Normal 26.0-34.0 [facility] Comment on above: Order Comment: Speci men Type: BLOOD SPECIMEN Performed By: #### 5 8410-2 ####[facility]ATORYCLIA [id number] [address] MCHC (RBC) [Mass/Vol] 29.3 g/dL Low 30.5-36.0 [facility] Comment on above: Order Comment: Speci men Type: BLOOD SPECIMEN Performed By: #### 5 8410-2 ####[facility]ATORYCLIA [id number] [address] MCV (RBC) [Entitic vol] 92.6 fL Normal 80.0-100.0 [facility] Comment on above: Order Comment: Speci men Type: BLOOD SPECIMEN Performed By: #### 5 8410-2 ####[facility]ATORYCLIA [id number] [address] Nucleated RBC (Bld) [#/Vol] 10*3/uL Normal <0.01 [facility] Comment on above: Order Comment: Speci men Type: BLOOD SPECIMEN Performed By: #### 5 8410-2 ####[facility]ORYCL[facility] [id number] [address] Platelet mean volume (Bld) [Entitic vol] 10.4 fL Normal 9.0-12.7 [facility] Comment on above: Order Comment: Speci men Type: BLOOD SPECIMEN Performed By: #### 5 8410-2 ####[facility]ORYCL[facility] [id number] [address] Platelets (Bld) [#/Vol] 206 10*3/uL Normal 150-400 [facility] Comment on above: Order Comment: Speci men Type: BLOOD SPECIMEN Performed By: #### 5 8410-2 ####[facility]ORYCL[facility] [id number] [address] RBC (Bld) [#/Vol] 3.76 10*6/uL Low 4.20-6.00 [facility] Comment on above: Order Comment: Speci men Type: BLOOD SPECIMEN Performed By: #### 5 8410-2 ####[facility]ORYCL[facility] [id number] [address] WBC (Bld) [#/Vol] 11.36 10*3/uL High 3.70-11.00 [facility] Comment on above: Order Comment: Speci men Type: BLOOD SPECIMEN Performed By: #### 5 8410-2 ####[facility]ORYCLIA [id number] [address] HEPATIC FUNCTION PNLon 06-10 Albumin [Mass/Vol] 3.1 g/dL Low 3.9-4.9 [facility] Comment on above: Order Comment: Speci men Type: BLOOD SPECIMEN Performed By: #### 2 777-1, 59653-7, , HFP ####[facility]ATORYCLIA [id number] [address] ALP [Catalytic activity/Vol] 73 U/L Normal 38-113 [facility] Comment on above: Order Comment: Speci men Type: BLOOD SPECIMEN Performed By: #### 2 777-1, 28447-8, , HFP ####[facility]ORATORYCLIA [id number] [address] ALT With P-5'-P [Catalytic activity/Vol] 64 U/L High 10-54 [facility] Comment on above: Order Comment: Speci men Type: BLOOD SPECIMEN Performed By: #### 2 777-1, 38170-2, , HFP ####[facility]ATORYCLIA [id number] [address] AST With P-5'-P [Catalytic activity/Vol] 44 U/L High 14-40 [facility] Comment on above: Order Comment: Speci men Type: BLOOD SPECIMEN Performed By: #### 2 777-1, 66806-4, , HFP ####[facility]ORYCLIA [id number] [address] Bilirubin [Mass/Vol] 0.5 mg/dL Normal 0.2-1.3 [facility] Comment on above: Order Comment: Speci men Type: BLOOD SPECIMEN Performed By: #### 2 777-1, 34949-0, , [facility] ####[facility]ATORYCLIA [id number] [address] Bilirubin.conjugated [Mass/Vol] mg/dL Normal <0.2 [facility] Comment on above: Order Comment: Speci men Type: BLOOD SPECIMEN Performed By: #### 2 777-1, 08943-2, , [facility] ####[facility]ATORYCLIA [id number] [address] Protein [Mass/Vol] 5.7 g/dL Low 6.3-8.0 [facility] Comment on above: Order Comment: Speci men Type: BLOOD SPECIMEN Performed By: #### 2 777-1, 08744-5, , [facility] ####[facility]ATORYCLIA [id number] [address] LEVETIRACETAMon 06-10-2021 levETIRAcetam [Mass/Vol] 57.7 ug/mL [...] developed and its performance characteristics determined by [facility] [place] ([facility]). It has not been cleared or approved by the FDA. [facility] is regulated under CLIA as qualified to perform high complexity testing. This test is used for clinical purposes. It should not be regarded as investigational or for research. Performed By: #### L DARY ####[facility] REFERENCE LABCLIA [id number] NILESH MCKEON [id number] [address] [place] Magnesium SerPl-mCncon 06-10 Magnesium [Mass/Vol] 2.7 mg/dL High 1.7-2.3 [facility] Comment on above: Order Comment: Speci men Type: BLOOD SPECIMEN Performed By: #### 2 777-1, 64548-2, , [facility] ####[facility]ATORYCLIA [id number] [place] [address] [place] Phosphate SerPl-ncon 06-10 Phosphate [Mass/Vol] 1.8 mg/dL Low 2.7-4.8 [facility] Comment on above: Order Comment: Speci men Type: BLOOD SPECIMEN Performed By: #### 2 777-1, 03902-4, , [facility] ####[facility]ORATORYCLIA [id number] [place] [address] [place] ALLIED HEALTHon 06-09-2021 [...] By: #### 2 4321-2, 2776-, ####[facility]ATORYCLIA [id number] [place] [address] [place] Calcium [Mass/Vol] 8.3 mg/dL Low 8.5-10.2 [facility] Comment on above: Order Comment: Speci men Type: BLOOD SPECIMEN Performed By: #### 2 4321-2, 2776-, ####[facility]ATORYCLIA [id number] [place] [address] [place] Chloride [Moles/Vol] 116 mmol/L High 97-105 [facility] Comment on above: Order Comment: Speci men Type: BLOOD SPECIMEN Performed By: #### 2 4321-2, 2776-05, ####[facility]ORATORYCLIA [id number] [place] [address] [place] CO2 [Moles/Vol] 27 mmol/L Normal 22-30 [facility] Comment on above: Order Comment: Speci men Type: BLOOD SPECIMEN Performed By: #### 2 4321-2, 2776-05, ####[facility]ORATORYCLIA [id number] [address] STATES OF [facility] Creatinine [Mass/Vol] 0.70 mg/dL Low 0.73-1.22 [facility] Comment on above: Order Comment: Speci men Type: BLOOD SPECIMEN Performed By: #### 2 4321-2, 2776-05, ####[facility] LABORATORYCLIA [id number] [place] [address] [place] GFR/1.73 sq M.predicted [...] By: #### 2 4321-2, 2777, ####[facility]ORATORYCLIA [id number] [place] [address] [place] Glucose [Mass/Vol] 123 mg/dL High 74-99 [facility] Comment on above: Order Comment: Speci men Type: BLOOD SPECIMEN Result Comment: The [place] [employer] (ADA) provides guidance for cutoff [...] Standards of Medical Care in Diabetes 2016, [place] [employer]. Diabetes Care. 2016.39(Suppl 1). Performed By: #### 2 4321-2, 2776-05, ####[facility]ORATORYCLIA [id number] [address] [place] Potassium [Moles/Vol] 3.5 mmol/L Low 3.7-5.1 [facility] Comment on above: Order Comment: Speci men Type: BLOOD SPECIMEN Performed By: #### 2 4321-2, 2776-05, ####[facility]ORATORYCLIA [id number] [address] [place] Sodium [Moles/Vol] 151 mmol/L High 136-144 [facility] Comment on above: Order Comment: Speci men Type: BLOOD SPECIMEN Performed By: #### 2 4321-2, 2776-05, ####[facility]ORATORYCLIA [id number] [place] [address] [place] Urea nitrogen [Mass/Vol] 39 mg/dL High 9-24 [facility] Comment on above: Order Comment: Speci men Type: BLOOD SPECIMEN Performed By: #### 2 4321-2, 2776-05, ####[facility]ORATORYCLIA [id number] [address] CBC panel Auto (Bld)on 06-09 Erythrocyte distribution width (RBC) [Ratio] 16.2 % High 11.5-15.0 [facility] Comment on above: Order Comment: Speci men Type: BLOOD SPECIMEN Performed By: #### 5 8410-2 ####[facility]ORATORYCLIA [id number] [address] Hematocrit (Bld) [Volume fraction] 33.7 % Low 39.0-51.0 [facility] Comment on above: Order Comment: Speci men Type: BLOOD SPECIMEN Performed By: #### 5 8410-2 ####[facility]ORATORYCLIA [id number] [address] Hemoglobin (Bld) [Mass/Vol] 10.2 g/dL Low 13.0-17.0 [facility] Comment on above: Order Comment: Speci men Type: BLOOD SPECIMEN Performed By: #### 5 8410-2 ####[facility]ORATORYCLIA [id number] [address] MCH (RBC) [Entitic mass] 27.4 pg Normal 26.0-34.0 [facility] Comment on above: Order Comment: Speci men Type: BLOOD SPECIMEN Performed By: #### 5 8410-2 ####[facility]ATORYCLIA [id number] [address] MCHC (RBC) [Mass/Vol] 30.3 g/dL Low 30.5-36.0 [facility] Comment on above: Order Comment: Speci men Type: BLOOD SPECIMEN Performed By: #### 5 8410-2 ####[facility]ORATORYCLIA [id number] [address] MCV (RBC) [Entitic vol] 90.6 fL Normal 80.0-100.0 [facility] Comment on above: Order Comment: Speci men Type: BLOOD SPECIMEN Performed By: #### 5 8410-2 ####[facility]ORATORYCLIA [id number] [address] Nucleated RBC (Bld) [#/Vol] 10*3/uL Normal <0.01 [facility] Comment on above: Order Comment: Speci men Type: BLOOD SPECIMEN Performed By: #### 5 8410-2 ####[facility]ORATORYCLIA [id number] [address] Platelet mean volume (Bld) [Entitic vol] 10.3 fL Normal 9.0-12.7 [facility] Comment on above: Order Comment: Speci men Type: BLOOD SPECIMEN Performed By: #### 5 8410-2 ####[facility]ORATORYCLIA [id number] [address] Platelets (Bld) [#/Vol] 219 10*3/uL Normal 150-400 [facility] Comment on above: Order Comment: Speci men Type: BLOOD SPECIMEN Performed By: #### 5 8410-2 ####[facility]ORATORYCLIA [id number] [address] RBC (Bld) [#/Vol] 3.72 10*6/uL Low 4.20-6.00 [facility] Comment on above: Order Comment: Speci men Type: BLOOD SPECIMEN Performed By: #### 5 8410-2 ####[facility] LABORATORYCLIA [id number] [address] OF [facility] WBC (Bld) [#/Vol] 13.02 10*3/uL High 3.70-11.00 [facility] Comment on above: Order Comment: Speci men Type: BLOOD SPECIMEN Performed By: #### 5 8410-2 ####[facility]ORATORYCLIA [id number] [address] CONSULT PROGon 06-09-2021 CONSULT PROG Normal [facility] CONSULT PROG Normal [facility] CT BRAIN WO IVCONon 06-09-[address] BRAIN WO IVCON Normal [facility] Magnesium SerPl-mCncon 06-09 Magnesium [Mass/Vol] 2.8 mg/dL High 1.7-2.3 [facility] Comment on above: Order Comment: Speci men Type: BLOOD SPECIMEN Performed By: #### 2 4321-2, 2777-1, 41462-2 ####[facility]ORATORYCLIA [id number] [address] NURSING PROGon 06-09-2021 NURSING PROG Normal [facility] NUTRITIONon 06-09-2021 NUTRITION Normal [facility] PT EDon 06-09-2021 PT ED Normal [facility] Phosphate SerPl-mCncon 06-09 Phosphate [Mass/Vol] 2.2 mg/dL Low 2.7-4.8 [facility] Comment on above: Order Comment: Speci men Type: BLOOD SPECIMEN Performed By: #### 2 4321-2, 2777-1, ####[facility]ORATORYCLIA [id number] [address] Vancomycin random [Mass/Vol] on 06-09-2021 Vancomycin [Mass/Vol] 18.9 ug/mL Normal 10.0-20.0 [facility] Comment on above: Order Comment: Speci men Type: BLOOD SPECIMEN Result Comment: Refe rence ranges and high/low indicator flags are provided as general guidelines only. The treating physician must determine appropriate target levels/dosing based on the specific clinical situation. Performed By: #### 4 091-5 ####[facility]ORATORYCLIA [id number] [address] XR ABD 2V SUPINE W UPR/DECUB [...] 1 Rare Staphylococcus saccharolyticus Identification performed by [facility] See scanned document for susceptibility report Normal [facility] Comment on above: Performed By: #### 6 462-6 635-3 ####[facility] LABORATORYCLIA [id number] [place] [address] [place] Bacteria Wnd Culton 06-08-19 22 Bacteria identified Cx Nom (Wound) CULTURE, INTRAOPERATIVE HARDWARE: No growth 5 days GRAM STAIN: Not performed on specimen type Normal [facility] Comment on above: Performed By: #### 6 462-6 635-3 ####[facility]ORATORYCLIA [id number] [place] [address] [place] Basic metabolic 2000 panelon 06-08-2021 Anion gap [Moles/Vol] 9 mmol/L Normal 9-18 [facility] Comment on above: Order Comment: Speci men Type: BLOOD SPECIMEN Performed By: #### 2 4321-2, 2776-05, ####[facility]ORATORYCLIA [id number] [place] [address] [place] Calcium [Mass/Vol] 8.7 mg/dL Normal 8.5-10.2 [facility] Comment on above: Order Comment: Speci men Type: BLOOD SPECIMEN Performed By: #### 2 4321-2, 2776-05, ####[facility]ORATORYCLIA [id number] [place] [address] [place] Chloride [Moles/Vol] 113 mmol/L High 97-105 [facility] Comment on above: Order Comment: Speci men Type: BLOOD SPECIMEN Performed By: #### 2 4321-2, 2776-05, ####[facility]ORATORYCLIA [id number] [place], [place] [address] [place] [address] [place] CO2 [Moles/Vol] 26 mmol/L Normal 22-30 [facility] Comment on above: Order Comment: Speci men Type: BLOOD SPECIMEN Performed By: #### 2 4321-2, 2776-05, ####[facility]ORATORYCLIA [id number] [address] [place] Creatinine [Mass/Vol] 0.68 mg/dL Low 0.73-1.22 [facility] Comment on above: Order Comment: Speci men Type: BLOOD SPECIMEN Performed By: #### 2 4321-2, 2776-05, ####[facility]ORATORYCLIA [id number] [address] [place] GFR/1.73 sq [...] By: #### 2 4321-2, 2776-05, ####[facility]ORATORYCLIA [id number] [place], [place] [address] [place] [address] [place] Glucose [Mass/Vol] 146 mg/dL High 74-99 [facility] Comment on above: Order Comment: Speci men Type: BLOOD SPECIMEN Result Comment: The [place] [employer] (ADA) provides guidance for cutoff [...] Standards of Medical Care in Diabetes 2016, [place] [employer]. Diabetes Care. 2016.39(Suppl 1). Performed By: #### 2 4321-2, 2776-05, ####[facility]ORATORYCLIA [id number] [address] STATES OF [facility] Potassium [Moles/Vol] 3.6 mmol/L Low 3.7-5.1 [facility] Comment on above: Order Comment: Speci men Type: BLOOD SPECIMEN Performed By: #### 2 4321-2, 2776-05, ####[facility]ORATORYCLIA [id number] [address] STATES OF [facility] Sodium [Moles/Vol] 148 mmol/L High 136-144 [facility] Comment on above: Order Comment: Speci men Type: BLOOD SPECIMEN Performed By: #### 2 4321-2, 2776-05, ####[facility]ORATORYCLIA [id number] [address] [place] Urea nitrogen [Mass/Vol] 36 mg/dL High 9-24 [facility] Comment on above: Order Comment: Speci men Type: BLOOD SPECIMEN Performed By: #### 2 4321-2, 2776-05, ####[facility] LABORATORYCLIA [id number] [address] [place] CASE MANAGEMon 02-02-2022 CASE MANAGEM Normal [facility] CBC panel Auto (Bld)on 06-08 Erythrocyte distribution width (RBC) [Ratio] 16.0 % High 11.5-15.0 [facility] Comment on above: Order Comment: Speci men Type: BLOOD SPECIMEN Performed By: #### 5 8410-2 ####[facility] LABORATORYCLIA [id number] [address] Hematocrit (Bld) [Volume fraction] 38.4 % Low 39.0-51.0 [facility] Comment on above: Order Comment: Speci men Type: BLOOD SPECIMEN Performed By: #### 5 8410-2 ####[facility]ORATORYCLIA [id number] [address] Hemoglobin (Bld) [Mass/Vol] 12.1 g/dL Low 13.0-17.0 [facility] Comment on above: Order Comment: Speci men Type: BLOOD SPECIMEN Performed By: #### 5 8410-2 ####[facility]ORATORYCLIA [id number] [address] MCH (RBC) [Entitic mass] 28.3 pg Normal 26.0-34.0 [facility] Comment on above: Order Comment: Speci men Type: BLOOD SPECIMEN Performed By: #### 5 8410-2 ####[facility]ORATORYCLIA [id number] [address] MCHC (RBC) [Mass/Vol] 31.5 g/dL Normal 30.5-36.0 [facility] Comment on above: Order Comment: Speci men Type: BLOOD SPECIMEN Performed By: #### 5 8410-2 ####[facility]ORATORYCLIA [id number] [address] MCV (RBC) [Entitic vol] 89.9 fL Normal 80.0-100.0 [facility] Comment on above: Order Comment: Speci men Type: BLOOD SPECIMEN Performed By: #### 5 8410-2 ####[facility]ORATORYCLIA [id number] [address] Nucleated RBC (Bld) [#/Vol] 10*3/uL Normal <0.01 [facility] Comment on above: Order Comment: Speci men Type: BLOOD SPECIMEN Performed By: #### 5 8410-2 ####[facility]ORATORYCLIA [id number] [address] Platelet mean volume (Bld) [Entitic vol] 10.3 fL Normal 9.0-12.7 [facility] Comment on above: Order Comment: Speci men Type: BLOOD SPECIMEN Performed By: #### 5 8410-2 ####[facility]ORATORYCLIA [id number] [address] Platelets (Bld) [#/Vol] 236 10*3/uL Normal 150-400 [facility] Comment on above: Order Comment: Speci men Type: BLOOD SPECIMEN Performed By: #### 5 8410-2 ####[facility]ATORYCLIA [id number] [address] RBC (Bld) [#/Vol] 4.27 10*6/uL Normal 4.20-6.00 [facility] Comment on above: Order Comment: Speci men Type: BLOOD SPECIMEN Performed By: #### 5 8410-2 ####[facility]ATORYCLIA [id number] [address] WBC (Bld) [#/Vol] 11.06 10*3/uL High 3.70-11.00 [facility] Comment on above: Order Comment: Speci men Type: BLOOD SPECIMEN Performed By: #### 5 8410-2 ####[facility]ORATORYCLIA [id number] [address] CONSULT PROGon 06-08-2021 CONSULT PROG Normal [facility] CT BRAIN WO IVCONon 06-08-19 CT BRAIN WO IVCON Normal [facility] Magnesium SerPl-mCncon 02-02 -2022 Magnesium [Mass/Vol] 2.8 mg/dL High 1.7-2.3 [facility] Comment on above: Order Comment: Speci men Type: BLOOD SPECIMEN Performed By: #### 2 4321-2, 2777-1, 39533-5 ####[facility]ATORYCLIA [id number] [address] Microorganism Spec Culton Microorganism identified Cx Nom (Unsp spec) CULTURE, FUNGAL: No Fungus isolated after 28 days FUNGAL SMEAR: No fungus seen Normal [facility] Comment on above: Performed By: #### 1 1475-1 ####[facility]ATORYCLIA [id number] [address] NURSING PROGon 06-08-2021 NURSING PROG Normal [...] with VKA drugs, such as warfarin, the [place] [employer] 2012 Guideline recommends [...] 70: 252-289 Performed By: #### 3 4528-0, 86334-2 ####[facility] LABORATORYCLIA [id number] [place], [place] [address] [place] [address] OF [facility] PT Coag (PPP) [Time] 11.9 s Normal 9.7-13.0 [facility] Comment on above: Order Comment: Speci men Type: BLOOD SPECIMEN Performed By: #### 3 4528-0, 05161-0 ####[facility] LABORATORYCLIA [id number] [address] OF [facility] Phosphate SerPl-mCncon 06-08 Phosphate [Mass/Vol] 2.3 mg/dL Low 2.7-4.8 [facility] Comment on above: Order Comment: Speci men Type: BLOOD SPECIMEN Performed By: #### 2 4321-2, 2777-1, 50878-8 ####[facility]ATORYCLIA [id number] [address] aPTT PPPon 06-08-2021 aPTT Coag (PPP) [Time] 24.2 s Normal 23.0-32.4 [facility] Comment on above: Order Comment: Speci men Type: BLOOD SPECIMEN Performed By: #### 3 4528-0, 18379-4 ####[facility]ORATORYCLIA [id number] [address] OF [facility] ALLIED HEALTHon 06-07-2021 ALLIED HEALTH Normal [place] [...] Performed By: #### 6 06-4 ####[facility]ORATORYCLIA [id number] [address] OF [facility] Basic metabolic 2000 panelon 06-07-2021 Anion gap [Moles/Vol] 9 mmol/L Normal 9-18 [facility] Comment on above: Order Comment: Speci men Type: BLOOD SPECIMEN Performed By: #### 1 9123-9, 27711-04, 20057-4 ####[facility]ATORYCLIA [id number] [address] Calcium [Mass/Vol] 8.8 mg/dL Normal 8.5-10.2 [facility] Comment on above: Order Comment: Speci men Type: BLOOD SPECIMEN Performed By: #### 1 9123-9, 2776-05, 50804-4 ####[facility]ATORYCLIA [id number] [address] OF [facility] Chloride [Moles/Vol] 111 mmol/L High 97-105 [facility] Comment on above: Order Comment: Speci men Type: BLOOD SPECIMEN Performed By: #### 1 9123-9, 2776-05, 16524-5 ####[facility]ORATORYCLIA [id number] [address] STATES OF [facility] CO2 [Moles/Vol] 27 mmol/L Normal 22-30 [facility] Comment on above: Order Comment: Speci men Type: BLOOD SPECIMEN Performed By: #### 1 9123-9, 2776-05, 27417-5 ####[facility]ATORYCLIA [id number] [address] OF [facility] Creatinine [Mass/Vol] 0.66 mg/dL Low 0.73-1.22 [facility] Comment on above: Order Comment: Speci men Type: BLOOD SPECIMEN Performed By: #### 1 9123-9, 27711-04, ####[facility]ATORYCLIA [id number] [place] [address] [place] GFR/1.73 sq M.predicted [...] GFR. Performed By: #### 1 9123-9, 2777-, 40556-7 ####[facility]ORATORYCLIA [id number] [place] [address] [place] Glucose [Mass/Vol] 123 mg/dL High 74-99 [facility] Comment on above: Order Comment: Speci men Type: BLOOD SPECIMEN Result Comment: The [place] [employer] (ADA) provides guidance for cutoff [...] Standards of Medical Care in Diabetes 2016, [place] [employer]. Diabetes Care. 2016.39(Suppl 1). Performed By: #### 1 9123-9, 2777, 33512-4 ####[facility]ORATORYCLIA [id number] [address] STATES OF [facility] Potassium [Moles/Vol] 3.6 mmol/L Low 3.7-5.1 [facility] Comment on above: Order Comment: Speci men Type: BLOOD SPECIMEN Performed By: #### 1 9123-9, 2777, 40480-5 ####[facility]ATORYCLIA [id number] [address] [place] Sodium [Moles/Vol] 147 mmol/L High 136-144 [facility] Comment on above: Order Comment: Speci men Type: BLOOD SPECIMEN Performed By: #### 1 9123-9, 2777-1, 45125-8 ####[facility]ATORYCLIA [id number] [address] Urea nitrogen [Mass/Vol] 30 mg/dL High 9-24 [facility] Comment on above: Order Comment: Speci men Type: BLOOD SPECIMEN Performed By: #### 1 9123-9, 2777-1, 07738-1 ####[facility]ORYCLIA [id number] [address] CBC W Auto Differential pane l (Bld)on 06-07-2021 Basophils (Bld) [#/Vol] 10*3/uL Normal <0.11 [facility] Comment on above: Order Comment: Speci men Type: BLOOD SPECIMEN Performed By: #### 5 7021-8 ####[facility]ATORYCLIA [id number] [address] Basophils/100 WBC (Bld) 0.2 % Normal [facility] Comment on above: Order Comment: Speci men Type: BLOOD SPECIMEN Performed By: #### 5 7021-8 ####[facility]ATORYCLIA [id number] [address] Differential cell count method Nom (Bld) Auto Normal [facility] Comment on above: Order Comment: Speci men Type: BLOOD SPECIMEN Performed By: #### 5 7021-8 ####[facility]ORYCLIA [id number] [address] Eosinophils (Bld) [#/Vol] 0.06 10*3/uL Normal <0.46 [facility] Comment on above: Order Comment: Speci men Type: BLOOD SPECIMEN Performed By: #### 5 7021-8 ####[facility]ORYCLIA [id number] [address] Eosinophils/100 WBC (Bld) 0.6 % Normal [facility] Comment on above: Order Comment: Speci men Type: BLOOD SPECIMEN Performed By: #### 5 7021-8 ####[facility] LABORATORYCLIA [id number] [address] Erythrocyte distribution width (RBC) [Ratio] 15.8 % High 11.5-15.0 [facility] Comment on above: Order Comment: Speci men Type: BLOOD SPECIMEN Performed By: #### 5 7021-8 ####[facility] LABORATORYCLIA [id number] [address] Hematocrit (Bld) [Volume fraction] 40.4 % Normal 39.0-51.0 [facility] Comment on above: Order Comment: Speci men Type: BLOOD SPECIMEN Performed By: #### 5 7021-8 ####[facility] LABORATORYCLIA [id number] [address] Hemoglobin (Bld) [Mass/Vol] 12.4 g/dL Low 13.0-17.0 [facility] Comment on above: Order Comment: Speci men Type: BLOOD SPECIMEN Performed By: #### 5 7021-8 ####[facility] LABORATORYCLIA [id number] [address] IMMATURE GRAN % 0.7 % Normal [facility] Comment on above: Order Comment: Speci men Type: BLOOD SPECIMEN Performed By: #### 5 7021-8 ####[facility]ATORYCLIA [id number] [address] IMMATURE GRAN ABS 0.07 k/uL Normal <0.10 [facility] Comment on above: Order Comment: Speci men Type: BLOOD SPECIMEN Performed By: #### 5 7021-8 ####[facility]ORATORYCLIA [id number] [address] Lymphocytes (Bld) [#/Vol] 1.43 10*3/uL Normal 1.00-4.00 [facility] Comment on above: Order Comment: Speci men Type: BLOOD SPECIMEN Performed By: #### 5 7021-8 ####[facility]ATORYCLIA [id number] [address] Lymphocytes/100 WBC (Bld) 14.1 % Normal [facility] Comment on above: Order Comment: Speci men Type: BLOOD SPECIMEN Performed By: #### 5 7021-8 ####[facility]ORATORYCLIA [id number] [address] MCH (RBC) [Entitic mass] 27.6 pg Normal 26.0-34.0 [facility] Comment on above: Order Comment: Speci men Type: BLOOD SPECIMEN Performed By: #### 5 7021-8 ####[facility] LABORATORYCLIA [id number] [address] MCHC (RBC) [Mass/Vol] 30.7 g/dL Normal 30.5-36.0 [facility] Comment on above: Order Comment: Speci men Type: BLOOD SPECIMEN Performed By: #### 5 7021-8 ####[facility]ORATORYCLIA [id number] [address] MCV (RBC) [Entitic vol] 89.8 fL Normal 80.0-100.0 [facility] Comment on above: Order Comment: Speci men Type: BLOOD SPECIMEN Performed By: #### 5 7021-8 ####[facility]ORATORYCLIA [id number] [address] Monocytes (Bld) [#/Vol] 0.82 10*3/uL Normal <0.87 [facility] Comment on above: Order Comment: Speci men Type: BLOOD SPECIMEN Performed By: #### 5 7021-8 ####[facility]CL[facility] [id number] [address] Monocytes/100 WBC (Bld) 8.1 % Normal [facility] Comment on above: Order Comment: Speci men Type: BLOOD SPECIMEN Performed By: #### 5 7021-8 ####[facility]ORYCLIA [id number] [place] [address] Neutrophils (Bld) [#/Vol] 7.74 10*3/uL High 1.45-7.50 [facility] Comment on above: Order Comment: Speci men Type: BLOOD SPECIMEN Performed By: #### 5 7021-8 ####[facility]ORATORYCLIA [id number] [address] Neutrophils/100 WBC (Bld) 76.3 % Normal [facility] Comment on above: Order Comment: Speci men Type: BLOOD SPECIMEN Performed By: #### 5 7021-8 ####[facility]ORATORYCLIA [id number] [address] Nucleated RBC (Bld) [#/Vol] 10*3/uL Normal <0.01 [facility] Comment on above: Order Comment: Speci men Type: BLOOD SPECIMEN Performed By: #### 5 7021-8 ####[facility]ORATORYCLIA [id number] [address] Nucleated RBC/100 WBC (Bld) [Ratio] 0.0 /100 WBC Normal 0.0 [facility] Comment on above: Order Comment: Speci men Type: BLOOD SPECIMEN Performed By: #### 5 7021-8 ####[facility]ATORYCLIA [id number] [address] Platelet mean volume (Bld) [Entitic vol] 10.4 fL Normal 9.0-12.7 [facility] Comment on above: Order Comment: Speci men Type: BLOOD SPECIMEN Performed By: #### 5 7021-8 ####[facility]ATORYCLIA [id number] [address] Platelets (Bld) [#/Vol] 236 10*3/uL Normal 150-400 [facility] Comment on above: Order Comment: Speci men Type: BLOOD SPECIMEN Performed By: #### 5 7021-8 ####[facility] LABORATORYCLIA [id number] [place] [address] [place] RBC (Bld) [#/Vol] 4.50 10*6/uL Normal 4.20-6.00 [facility] Comment on above: Order Comment: Speci men Type: BLOOD SPECIMEN Performed By: #### 5 7021-8 ####[facility]ORATORYCLIA [id number] [address] WBC (Bld) [#/Vol] 10.14 10*3/uL Normal 3.70-11.00 [facility] Comment on above: Order Comment: Speci men Type: BLOOD SPECIMEN Performed By: #### 5 7021-8 ####[facility]ATORYCLIA [id number] [address] CBC panel Auto (Bld)on 06-07 Erythrocyte distribution width (RBC) [Ratio] 15.8 % High 11.5-15.0 [facility] Comment on above: Order Comment: Speci men Type: BLOOD SPECIMEN Performed By: #### 5 8410-2 ####[facility]ORATORYCLIA [id number] [address] Hematocrit (Bld) [Volume fraction] 40.0 % Normal 39.0-51.0 [facility] Comment on above: Order Comment: Speci men Type: BLOOD SPECIMEN Performed By: #### 5 8410-2 ####[facility]ATORYCLIA [id number] [address] Hemoglobin (Bld) [Mass/Vol] 12.3 g/dL Low 13.0-17.0 [facility] Comment on above: Order Comment: Speci men Type: BLOOD SPECIMEN Performed By: #### 5 8410-2 ####[facility]ATORYCLIA [id number] [address] MCH (RBC) [Entitic mass] 27.3 pg Normal 26.0-34.0 [facility] Comment on above: Order Comment: Speci men Type: BLOOD SPECIMEN Performed By: #### 5 8410-2 ####[facility] [facility]ORYCLIA [id number] [address] MCHC (RBC) [Mass/Vol] 30.8 g/dL Normal 30.5-36.0 [facility] Comment on above: Order Comment: Speci men Type: BLOOD SPECIMEN Performed By: #### 5 8410-2 ####[facility]ATORYCLIA [id number] [address] MCV (RBC) [Entitic vol] 88.7 fL Normal 80.0-100.0 [facility] Comment on above: Order Comment: Speci men Type: BLOOD SPECIMEN Performed By: #### 5 8410-2 ####[facility]ORATORYCLIA [id number] [address] Nucleated RBC (Bld) [#/Vol] 10*3/uL Normal <0.01 [facility] Comment on above: Order Comment: Speci men Type: BLOOD SPECIMEN Performed By: #### 5 8410-2 ####[facility]ORATORYCLIA [id number] [address] Platelet mean volume (Bld) [Entitic vol] 10.0 fL Normal 9.0-12.7 [facility] Comment on above: Order Comment: Speci men Type: BLOOD SPECIMEN Performed By: #### 5 8410-2 ####[facility]ORATORYCLIA [id number] [address] Platelets (Bld) [#/Vol] 234 10*3/uL Normal 150-400 [facility] Comment on above: Order Comment: Speci men Type: BLOOD SPECIMEN Performed By: #### 5 8410-2 ####[facility]ORYCLIA [id number] [address] RBC (Bld) [#/Vol] 4.51 10*6/uL Normal 4.20-6.00 [facility] Comment on above: Order Comment: Speci men Type: BLOOD SPECIMEN Performed By: #### 5 8410-2 ####[facility]ORATORYCLIA [id number] [address] [place] WBC (Bld) [#/Vol] 11.47 10*3/uL High 3.70-11.00 [facility] Comment on above: Order Comment: Speci men Type: BLOOD SPECIMEN Performed By: #### 5 8410-2 ####[facility]ORATORYCLIA [id number] [address] CONSULT PROGon 06-07-2021 CONSULT PROG Normal [facility] CONSULT PROG Normal [facility] CSF MANUAL DIFFon 06-07-2021 DIF TTL, CSF 92 cells counted Normal [facility] Comment on above: Order Comment: Speci men Type: CEREBROSPINAL FLUID Performed By: #### 3 4563-7, [id number], [id number] ####[facility]ORATORYCLIA [id number] [address] EOSIN%, CSF 1 % Normal [facility] Comment on above: Order Comment: Speci men Type: CEREBROSPINAL FLUID Performed By: #### 3 4563-7, [id number], [id number] ####[facility]ORYCLIA [id number] [address] [place] LYMPH%, CSF 21 % Low 50-90 [facility] Comment on above: Order Comment: Speci men Type: CEREBROSPINAL FLUID Performed By: #### 3 4563-7, [id number], [id number] ####[facility]ORYCLIA [id number] [address] [place] MACRO%, CSF 27 % High <1 [facility] Comment on above: Order Comment: Speci men Type: CEREBROSPINAL FLUID Result Comment: Tati ected result: Previously reported as 22 % on 06/07/2021 at 1:49 PM EST. Performed By: #### 3 4563-7, [id number], [id number] ####[facility]ORYCLIA [id number] [address] [place] MONO%, CSF 36 % Normal 10-50 [facility] Comment on above: Order Comment: Speci men Type: CEREBROSPINAL FLUID Performed By: #### 3 4563-7, [id number], [id number] ####[facility]ORATORYCLIA [id number] [address] [place] NEUT%, CSF 11 % High 0-3 [facility] Comment on above: Order Comment: Speci men Type: CEREBROSPINAL FLUID Performed By: #### 3 4563-7, [id number], [id number] ####[facility]ORATORYCLIA [id number] [address] OTHER CL%, CSF 4 % Normal [facility] Comment on above: Order Comment: Speci men Type: CEREBROSPINAL FLUID Result Comment: Path review to follow.Corrected result: Previously reported as 10 % on 06/07/2021 at 1:49 PM EST. Performed By: #### 3 4563-7, [id number], [id number] ####[facility]ORATORYCLIA [id number] [address] CSF PATHOLOGIST INTERP (LAB REFLEX ORDER-NO BILL)on 06-07-2021 CSF STAFF REVIEW Negative for maligna nt cells. Rare immature myeloid or ventricular lining cells. Normal [facility] Comment on above: Order Comment: Speci men Type: CEREBROSPINAL FLUID Performed By: #### 3 4563-7, [id number], [id number] ####[facility]ORATORYCLIA [id number] [address] Pathologist name Reviewed by Eloise rebolledo MD [facility] Comment on above: Order Comment: Speci men Type: CEREBROSPINAL FLUID Performed By: #### 3 4563-7, [id number], [id number] ####[facility]ATORYCLIA [id number] [address] BRAIN WO IVCONon 06-07-19 CT BRAIN WO IVCON Normal [facility] CT BRAIN WO IVCON Normal [facility] Cell count panel (CSF)on Clarity (CSF) Clear Normal Clear [facility] Comment on above: Order Comment: Speci men Type: CEREBROSPINAL FLUID Performed By: #### 3 4563-7, [id number], [id number] ####[facility]ORYCLIA [id number] [address] Clarity (Unsp spec) Not Indicated Normal Clear [facility] Comment on above: Order Comment: Speci men Type: CEREBROSPINAL FLUID Performed By: #### 3 4563-7, [id number], [id number] ####[facility]ORYCLIA [id number] [address] Color (CSF) Colorless Normal Colorless [facility] Comment on above: Order Comment: Speci men Type: CEREBROSPINAL FLUID Performed By: #### 3 4563-7, [id number], [id number] ####[facility]ORYCLIA [id number] [address] Color (Spun CSF) Not Indicated Normal Colorless [facility] Comment on above: Order Comment: Speci men Type: CEREBROSPINAL FLUID Performed By: #### 3 4563-7, [id number], [id number] ####[facility]ORYCLIA [id number] [address] CSF TUBE NUMBER [employer] Normal [facility] Comment on above: Order Comment: Speci men Type: CEREBROSPINAL FLUID Performed By: #### 3 4563-7, [id number], [id number] ####[facility]ORYCLIA [id number] [address] RBC Manual cnt (CSF) [#/Vol] 42 cells/uL High 0-5 [facility] Comment on above: Order Comment: Speci men Type: CEREBROSPINAL FLUID Performed By: #### 3 4563-7, [id number], [id number] ####[facility] [facility]ATORYCLIA [id number] [address] WBC Manual cnt (CSF) [#/Vol] 1 cells/uL Normal 0-5 [facility] Comment on above: Order Comment: Speci men Type: CEREBROSPINAL FLUID Performed By: #### 3 4563-7, [id number], [id number] ####[facility]ORATORYCLIA [id number] [address] [place] Glucose CSF-mCncon 2 [...] Glucose HK (GLUC3) [package insert V 12.0 Estonian]. [employer], [place], [place]. September 2015. 2. Michelle Moore, Loki HGarfield (2015). Chapter 7: Glucose and Lactate. Marianela Rothman.(eds.), Cerebrospinal Fluid in Clinical Neurology. [place]: [employer]. Performed By: #### 2 880-3, 2342-4 ####[facility]ORATORYCLIA [id number] [address] STATES OF [facility] Lactate (Bld) [Moles/Vol]on 06-07-2021 Lactate [Moles/Vol] 0.9 mmol/L Normal 0.5-2.2 [facility] Comment on above: Order Comment: Speci men Type: BLOOD SPECIMEN Performed By: #### 3 2693-4 ####[facility]ORATORYCLIA [id number] [address] [place] Lipase SerPl-cCncon 06-07-19 22 Lipase [Catalytic activity/Vol] 35 U/L Normal 16-61 [facility] Comment on above: Order Comment: Speci men Type: BLOOD SPECIMEN Performed By: #### 3 040-3, PROCAL ####[facility]ORATORYCLIA [id number] [address] [place] Magnesium SerPl-mCncon 06-07 Magnesium [Mass/Vol] 2.7 mg/dL High 1.7-2.3 [facility] Comment on above: Order Comment: Speci men Type: BLOOD SPECIMEN Performed By: #### 1 9123-9, 2777-1, 84212-1 ####[facility]ATORYCLIA [id number] [address] PROCALCITONIN (LAB)on 2021 Procalcitonin [Mass/Vol] 0.13 ng/mL High <0.09 [facility] Comment on above: Order Comment: Speci men Type: BLOOD SPECIMEN Result Comment: For a guided interpretation of test results, please visit the [facility] in Procalcitonin Calculator, [email or web address]. Performed By: #### 3 040-3, PROCAL ####[facility]ENTERCLIA [id number] [address] OF [facility] Phosphate SerPl-ncon 06-07 Phosphate [Mass/Vol] 1.9 mg/dL Low 2.7-4.8 [facility] Comment on above: Order Comment: Speci men Type: BLOOD SPECIMEN Performed By: #### 1 9123-9, 2777-1, 54019-0 ####[facility]ENTERCLIA [id number] [address] Prot CSF-mCncon 06-07-2021 Protein (CSF) [Mass/Vol] 33 mg/dL Normal 15-45 [facility] Comment on above: Order Comment: Speci men Type: CEREBROSPINAL FLUID Performed By: #### 2 880-3, 2342-4 ####[facility]ORATORYCLIA [id number] [address] SARS-CoV-2 RNA Resp Ql MEGAN+p robeon 06-07-2021 SARS-CoV-2 (COVID-19) RNA MEGAN+probe Ql (Resp) COVID 19 RESULT: SARS-CoV-2 (Agent of COVID-19) Not Detected by PCR. This test has been authorized by FDA under an Emergency Use Authorization (EUA). Normal [facility] Comment on above: Performed By: #### 9 4500-6 ####[facility] LABORATORYCLIA [id number] [place] [address] [facility] TYPE AND SCREENon 06-07-2021 ABO O Normal [facility] Comment on above: Order Comment: Speci men Type: BLOOD SPECIMEN Performed By: #### T SCR ####[facility] BLOOD BANKCLIA [id number] [place] [id number] [facility] HISTORICAL AB SCR STATUS Negative Normal [facility] Comment on above: Order Comment: Speci men Type: BLOOD SPECIMEN Performed By: #### T SCR ####[facility] BLO[facility] BANKCLIA [id number] [address] Rh Nom (Bld) Positive Normal [facility] Comment on above: Order Comment: Speci men Type: BLOOD SPECIMEN Performed By: #### T SCR ####[facility] BLOOD BANKCLIA [id number] [address] TYPE AND SCREEN EXPIRATION 06/10/2021 23:59 Normal [facility] Comment on above: Order Comment: Speci men Type: BLOOD SPECIMEN Performed By: #### T SCR ####[facility] BLO[facility] BANKCLIA [id number] [address] Vancomycin random [Mass/Vol] on 06-07-2021 Vancomycin [Mass/Vol] 16.5 ug/mL Normal 10.0-20.0 [facility] Comment on above: Order Comment: Speci men Type: BLOOD SPECIMEN Result Comment: Refe rence ranges and high/low indicator flags are provided as general guidelines only. The treating physician must determine appropriate target levels/dosing based on the specific clinical situation. Performed By: #### 4 091-5 ####[facility]ORATORYCLIA [id number] [address] XR CHEST 1V FRONTAL PORTon 0 06-07-2021 XR CHEST 1V FRONTAL PORT Normal [facility] Basic metabolic 2000 panelon 06-06-2021 Anion gap [Moles/Vol] 11 mmol/L Normal 9-18 [facility] Comment on above: Order Comment: Speci men Type: BLOOD SPECIMEN Performed By: #### 2 4321-2, , 2776-05 ####[facility] LABORATORYCLIA [id number] [address] STATES [facility] Calcium [Mass/Vol] 8.6 mg/dL Normal 8.5-10.2 [facility] Comment on above: Order Comment: Speci men Type: BLOOD SPECIMEN Performed By: #### 2 4321-2, , 2776-05 ####[facility] LABORATORYCLIA [id number] [address] [place] Chloride [Moles/Vol] 108 mmol/L High 97-105 [facility] Comment on above: Order Comment: Speci men Type: BLOOD SPECIMEN Performed By: #### 2 4321-2, , 2776-05 ####[facility] LABORATORYCLIA [id number] [address] [place] CO2 [Moles/Vol] 25 mmol/L Normal 22-30 [facility] Comment on above: Order Comment: Speci men Type: BLOOD SPECIMEN Performed By: #### 2 4321-2, , 2776-05 ####[facility]ATORYCLIA [id number] [address] STATES OF [facility] Creatinine [Mass/Vol] 0.76 mg/dL Normal 0.73-1.22 [facility] Comment on above: Order Comment: Speci men Type: BLOOD SPECIMEN Performed By: #### 2 4321-2, , 2776-05 ####[facility] LABORATORYCLIA [id number] [place] [address] [place] GFR/1.73 sq M.predicted [...] has been calibrated to be traceable to IDMN. An eGFR <60 mL/min/1.73m2 for >3 months is consistent with chronic kidney disease. Refer to KDOQI guidelines for clinical interpretation. In patients with unstable renal function, e.g. those with acute kidney injury, the eGFR may not accurately reflect actual GFR. Performed By: #### 2 4321-2, , 2776-05 ####[facility] LABORATORYCLIA [id number] [place] [address] [place] Glucose [Mass/Vol] 116 mg/dL High 74-99 [facility] Comment on above: Order Comment: Speci men Type: BLOOD SPECIMEN Result Comment: The [place] [employer] (ADA) provides guidance for cutoff [...] Standards of Medical Care in Diabetes 2016, [place] [employer]. Diabetes Care. 2016.39(Suppl 1). Performed By: #### 2 4321-2, , 2776-05 ####[facility] LABORATORYCLIA [id number] [place] [address] [place] Potassium [Moles/Vol] 3.5 mmol/L Low 3.7-5.1 [facility] Comment on above: Order Comment: Speci men Type: BLOOD SPECIMEN Performed By: #### 2 4321-2, , 2776-05 ####[facility] LABORATORYCLIA [id number] [place] [address] [place] Sodium [Moles/Vol] 144 mmol/L Normal 136-144 [facility] Comment on above: Order Comment: Speci men Type: BLOOD SPECIMEN Performed By: #### 2 4321-2, 21141-1, 2776-05 ####[facility] LABORATORYCLIA [id number] [address] Urea nitrogen [Mass/Vol] 31 mg/dL High 9-24 [facility] Comment on above: Order Comment: Speci men Type: BLOOD SPECIMEN Performed By: #### 2 4321-2, , 2776-05 ####[facility]ORATORYCLIA [id number] [address] CASE MANAGEMon 06-06-2021 CASE MANAGEM Normal [facility] CBC panel Auto (Bld)on 06-06 Erythrocyte distribution width (RBC) [Ratio] 15.8 % High 11.5-15.0 [facility] Comment on above: Order Comment: Speci men Type: BLOOD SPECIMEN Performed By: #### 5 8410-2 ####[facility] LABORATORYCLIA [id number] [address] Hematocrit (Bld) [Volume fraction] 39.5 % Normal 39.0-51.0 [facility] Comment on above: Order Comment: Speci men Type: BLOOD SPECIMEN Performed By: #### 5 8410-2 ####[facility] LABORATORYCLIA [id number] [address] Hemoglobin (Bld) [Mass/Vol] 12.2 g/dL Low 13.0-17.0 [facility] Comment on above: Order Comment: Speci men Type: BLOOD SPECIMEN Performed By: #### 5 8410-2 ####[facility] LABORATORYCLIA [id number] [address] MCH (RBC) [Entitic mass] 27.8 pg Normal 26.0-34.0 [facility] Comment on above: Order Comment: Speci men Type: BLOOD SPECIMEN Performed By: #### 5 8410-2 ####[facility] LABORATORYCLIA [id number] [address] MCHC (RBC) [Mass/Vol] 30.9 g/dL Normal 30.5-36.0 [facility] Comment on above: Order Comment: Speci men Type: BLOOD SPECIMEN Performed By: #### 5 8410-2 ####[facility] LABORATORYCLIA [id number] [address] MCV (RBC) [Entitic vol] 90.0 fL Normal 80.0-100.0 [facility] Comment on above: Order Comment: Speci men Type: BLOOD SPECIMEN Performed By: #### 5 8410-2 ####[facility]ORATORYCLIA [id number] [address] Nucleated RBC (Bld) [#/Vol] 10*3/uL Normal <0.01 [facility] Comment on above: Order Comment: Speci men Type: BLOOD SPECIMEN Performed By: #### 5 8410-2 ####[facility]ORATORYCLIA [id number] [address] Platelet mean volume (Bld) [Entitic vol] 10.4 fL Normal 9.0-12.7 [facility] Comment on above: Order Comment: Speci men Type: BLOOD SPECIMEN Performed By: #### 5 8410-2 ####[facility]ORATORYCLIA [id number] [address] Platelets (Bld) [#/Vol] 236 10*3/uL Normal 150-400 [facility] Comment on above: Order Comment: Speci men Type: BLOOD SPECIMEN Performed By: #### 5 8410-2 ####[facility]ORATORYCLIA [id number] [address] RBC (Bld) [#/Vol] 4.39 10*6/uL Normal 4.20-6.00 [facility] Comment on above: Order Comment: Speci men Type: BLOOD SPECIMEN Performed By: #### 5 8410-2 ####[facility] LABORATORYCLIA [id number] [place], [place] [id number] [place] [address] WBC (Bld) [#/Vol] 9.74 10*3/uL Normal 3.70-11.00 [facility] Comment on above: Order Comment: Speci men Type: BLOOD SPECIMEN Performed By: #### 5 8410-2 ####[facility] LABORATORYCLIA [id number] [place] [address] [facility] CONSULT PROGon 06-06-2021 CONSULT PROG Normal [facility] CONSULT PROG Normal [facility] Magnesium SerPl-mCncon 06-06 Magnesium [Mass/Vol] 2.5 mg/dL High 1.7-2.3 [facility] Comment on above: Order Comment: Speci men Type: BLOOD SPECIMEN Performed By: #### 2 4321-2, 65414-9, 2777-1 ####[facility] LABORATORYCLIA [id number] [address] PT panel Coag (PPP)on 2021 INR Coag (PPP) [Relative time] 1.0 {INR} Normal 0.9-1.3 [facility] Comment on above: Order Comment: Speci men Type: BLOOD SPECIMEN Result Comment: Yris min K Antagonist (VKA) Therapeutic Range: INR 2 to 3 (Target INR of 2.5)Note: For patients treated with VKA drugs, such as warfarin, the [place] [employer] 2012 Guideline recommends [...] al. Chest 2012, 141:7S-47SAlba RA, et al. JAC 2017, 70: 252-289 Performed By: #### 3 4528-0, 96639-2 ####[facility] LABORATORYCLIA [id number] [address] PT Coag (PPP) [Time] 11.4 s Normal 9.7-13.0 [facility] Comment on above: Order Comment: Speci men Type: BLOOD SPECIMEN Performed By: #### 3 4528-0, 14160-8 ####[facility] LAB[facility]ATORYCL[facility] [id number] [address] Phosphate SerPl-mCncon 06-06 Phosphate [Mass/Vol] 2.3 mg/dL Low 2.7-4.8 [facility] Comment on above: Order Comment: Speci men Type: BLOOD SPECIMEN Performed By: #### 2 4321-2, 01736-8, 2777-1 ####[facility]ATORYCLIA [id number] [address] THROMBOGRAPH HEPARINASE PANE [place] 06-06-2021 Clot angle after addition of heparinase TEG (Bld) [Angle] 70.2 degrees Normal 47.0-74.0 [facility] Comment on above: Order Comment: Speci men Type: BLOOD SPECIMEN Performed By: #### T EGHPP ####[facility]ORATORYCLIA [id number] [address] Clot Lysis 30 Min post maximum clot amplitude TEG (Bld) [Length fraction] 0.0 % Normal 0.0-8.0 [facility] Comment on above: Order Comment: Speci men Type: BLOOD SPECIMEN Performed By: #### T EGHPP ####[facility]ATORYCL[facility] [id number] [address] Clotting time after addition of heparinase TEG (Bld) 5.7 minutes Normal 4.0-10.0 [facility] Comment on above: Order Comment: Speci men Type: BLOOD SPECIMEN Performed By: #### T EGHPP ####[facility] LABORATORYCLIA [id number] [address] Coagulation index TEG Qn (Bld) 1.2 Normal -4.6-3.2 [facility] Comment on above: Order Comment: Speci men Type: BLOOD SPECIMEN Result Comment: The Coagulation Index, a secondary parameter, is labeled by the gage maker as for "research use only" and is used per the gage maker's instructions. Its performance characteristics were determined by [facility] [place] in a manner consistent with CLIA requirements. This test has not been cleared by the U.S. Food and Drug Administration. Performed By: #### T EGHPP ####[facility]ORATORYCLIA [id number] [address] Maximum clot firmness after addition of heparinase TEG (Bld) [Length] 64.0 mm Normal 51.0-75.0 [facility] Comment on above: Order Comment: Speci men Type: BLOOD SPECIMEN Performed By: #### T EGHPP ####[facility]ORATORYCLIA [id number] [address] OF [facility] Vancomycin random [Mass/Vol] on 06-06-2021 Vancomycin [Mass/Vol] 17.4 ug/mL Normal 10.0-20.0 [facility] Comment on above: Order Comment: Speci men Type: BLOOD SPECIMEN Result Comment: Refe rence ranges and high/low indicator flags are provided as general guidelines only. The treating physician must determine appropriate target levels/dosing based on the specific clinical situation. Performed By: #### 4 091-5 ####[facility]ORATORYCLIA [id number] [address] STATES OF [facility] Vancomycin [Mass/Vol] 13.5 ug/mL Normal 10.0-20.0 [facility] Comment on above: Order Comment: Speci men Type: BLOOD SPECIMEN Result Comment: Refe rence ranges and high/low indicator flags are provided as general guidelines only. The treating physician must determine appropriate target levels/dosing based on the specific clinical situation. Performed By: #### 4 091-5 ####[facility]ORATORYCLIA [id number] [address] [place] aPTT PPPon 06-06-2021 aPTT Coag (PPP) [Time] 27.8 s Normal 23.0-32.4 [facility] Comment on above: Order Comment: Speci men Type: BLOOD SPECIMEN Performed By: #### 3 4528-0, 59462-5 ####[facility]ORATORYCLIA [id number] [address] [place] Basic metabolic 2000 panelon 06-05-2021 Anion gap [Moles/Vol] 11 mmol/L Normal 9-18 [facility] Comment on above: Order Comment: Speci men Type: BLOOD SPECIMEN Performed By: #### 1 9123-9, 22979-7, 2776- ####[facility]ATORYCLIA [id number] [place] [address] [place] Calcium [Mass/Vol] 8.6 mg/dL Normal 8.5-10.2 [facility] Comment on above: Order Comment: Speci men Type: BLOOD SPECIMEN Performed By: #### 1 9123-9, 83108-7, 2776- ####[facility]ORATORYCLIA [id number] [address] STATES OF [facility] Chloride [Moles/Vol] 108 mmol/L High 97-105 [facility] Comment on above: Order Comment: Speci men Type: BLOOD SPECIMEN Performed By: #### 1 9123-9, 73754-7, 2776- ####[facility]ATORYCLIA [id number] [place] [address] [place] CO2 [Moles/Vol] 25 mmol/L Normal 22-30 [facility] Comment on above: Order Comment: Speci men Type: BLOOD SPECIMEN Performed By: #### 1 9123-9, 97217-8, 2776- ####[facility]ATORYCLIA [id number] [place] [address] [place] Creatinine [Mass/Vol] 0.77 mg/dL Normal 0.73-1.22 [facility] Comment on above: Order Comment: [facility] Type: BLOOD SPECIMEN Performed By: #### 1 9123-9, 66161-0, 2777-1 ####[facility]ATORYCLIA [id number] [place] [address] [place] GFR/1.73 sq M.predicted [...] actual GFR. Performed By: #### 1 9123-9, 20819-7, 2777-1 ####[facility] [id number] [place] [address] [place] Glucose [Mass/Vol] 96 mg/dL Normal 74-99 [facility] Comment on above: Order Comment: [facility] Type: BLOOD SPECIMEN Result Comment: The [place] [employer] (ADA) provides guidance for cutoff [...] Standards of Medical Care in Diabetes 2016, [place] [employer]. Diabetes Care. 2016.39(Suppl 1). Performed By: #### 1 9123-9, 24264-1, 2776-05 ####[facility]ORATORYCLIA [id number] [address] STATES [facility] Potassium [Moles/Vol] 3.9 mmol/L Normal 3.7-5.1 [facility] Comment on above: Order Comment: Speci men Type: BLOOD SPECIMEN Performed By: #### 1 9123-9, 29526-2, 2776- ####[facility]ATORYCLIA [id number] [address] Sodium [Moles/Vol] 144 mmol/L Normal 136-144 [facility] Comment on above: Order Comment: Speci men Type: BLOOD SPECIMEN Performed By: #### 1 91239, 10365-9, 2776-05 ####[facility]ORATORYCLIA [id number] [address] Urea nitrogen [Mass/Vol] 26 mg/dL High 9-24 [facility] Comment on above: Order Comment: Speci men Type: BLOOD SPECIMEN Performed By: #### 1 9123-9, , 2776-05 ####[facility]ORATORYCLIA [id number] [address] CBC panel Auto (Bld)on 06-05 Erythrocyte distribution width (RBC) [Ratio] 15.9 % High 11.5-15.0 [facility] Comment on above: Order Comment: Speci men Type: BLOOD SPECIMEN Performed By: #### 5 8410-2 ####[facility]ATORYCLIA [id number] [address] Hematocrit (Bld) [Volume fraction] 39.6 % Normal 39.0-51.0 [facility] Comment on above: Order Comment: Speci men Type: BLOOD SPECIMEN Performed By: #### 5 8410-2 ####[facility]ORATORYCLIA [id number] [address] Hemoglobin (Bld) [Mass/Vol] 12.3 g/dL Low 13.0-17.0 [facility] Comment on above: Order Comment: Speci men Type: BLOOD SPECIMEN Performed By: #### 5 8410-2 ####[facility]ORATORYCLIA [id number] [address] MCH (RBC) [Entitic mass] 28.1 pg Normal 26.0-34.0 [facility] Comment on above: Order Comment: Speci men Type: BLOOD SPECIMEN Performed By: #### 5 8410-2 ####[facility]ORATORYCLIA [id number] [address] MCHC (RBC) [Mass/Vol] 31.1 g/dL Normal 30.5-36.0 [facility] Comment on above: Order Comment: Speci men Type: BLOOD SPECIMEN Performed By: #### 5 8410-2 ####[facility]ORATORYCLIA [id number] [address] MCV (RBC) [Entitic vol] 90.4 fL Normal 80.0-100.0 [facility] Comment on above: Order Comment: Speci men Type: BLOOD SPECIMEN Performed By: #### 5 8410-2 ####[facility]ORATORYCLIA [id number] [address] Nucleated RBC (Bld) [#/Vol] 10*3/uL Normal <0.01 [facility] Comment on above: Order Comment: Speci men Type: BLOOD SPECIMEN Performed By: #### 5 8410-2 ####[facility]ORATORYCLIA [id number] [address] Platelet mean volume (Bld) [Entitic vol] 10.5 fL Normal 9.0-12.7 [facility] Comment on above: Order Comment: Speci men Type: BLOOD SPECIMEN Performed By: #### 5 8410-2 ####[facility] LABORATORYCLIA [id number] [address] Platelets (Bld) [#/Vol] 224 10*3/uL Normal 150-400 [facility] Comment on above: Order Comment: Speci men Type: BLOOD SPECIMEN Performed By: #### 5 8410-2 ####[facility]ATORYCLIA [id number] [address] RBC (Bld) [#/Vol] 4.38 10*6/uL Normal 4.20-6.00 [facility] Comment on above: Order Comment: Speci men Type: BLOOD SPECIMEN Performed By: #### 5 8410-2 ####[facility]ORATORYCLIA [id number] [address] OF [facility] WBC (Bld) [#/Vol] 9.66 10*3/uL Normal 3.70-11.00 [facility] Comment on above: Order Comment: Speci men Type: BLOOD SPECIMEN Performed By: #### 5 8410-2 ####[facility]ORATORYCLIA [id number] [address] CONSULT PROGon 06-05-2021 CONSULT PROG Normal [facility] Gas and Carbon monoxide pane l (BldV)on 06-05-2021 Base excess Calc (BldV) [Moles/Vol] 1.8 mmol/L Normal 0-2 [facility] Comment on above: Order Comment: Speci men Type: VENOUS BLOOD SPECIMEN Performed By: #### 2 4344-4 ####[facility]ORATORYCLIA [id number] [address] Body temperature 100.4 [degF] Normal [facility] Comment on above: Order Comment: Speci men Type: VENOUS BLOOD SPECIMEN Performed By: #### 2 4344-4 ####[facility]ORATORYCLIA [id number] [address] CALCIUM IONIZED, PH CORRECTED 1.21 mmol/L Normal 1.08-1.30 [facility] Comment on above: Order Comment: Speci men Type: VENOUS BLOOD SPECIMEN Performed By: #### 2 4344-4 ####[facility]ORATORYCLIA [id number] [address] Calcium.ionized (BldV) [Mass/Vol] 1.19 mmol/L Normal 1.08-1.30 [facility] Comment on above: Order Comment: Speci men Type: VENOUS BLOOD SPECIMEN Performed By: #### 2 4344-4 ####[facility]ORATORYCLIA [id number] [address] Carboxyhemoglobin (BldV) [Mass fraction] 1.0 % Normal 0.0-2.0 [facility] Comment on above: Order Comment: Speci men Type: VENOUS BLOOD SPECIMEN Result Comment: Carb oxyhemoglobin Reference Range for Smokers: 2.0-8.0% Performed By: #### 2 4344-4 ####[facility]ORATORYCLIA [id number] [address] CO2 (BldV) [Partial pressure] 41 mm[Hg] Low 42-55 [facility] Comment on above: Order Comment: Speci men Type: VENOUS BLOOD SPECIMEN Performed By: #### 2 4344-4 ####[facility]ORATORYCLIA [id number] [address] CO2 [Moles/Vol] 23.4 mmol/L Low 25-29 [facility] Comment on above: Order Comment: Speci men Type: VENOUS BLOOD SPECIMEN Performed By: #### 2 4344-4 ####[facility]ORATORYCLIA [id number] [address] CO2 adjusted to patient's actual temperature (BldV) [Partial pressure] 43 mmHg Normal 42-55 [facility] Comment on above: Order Comment: Speci men Type: VENOUS BLOOD SPECIMEN Performed By: #### 2 4344-4 ####[facility]ATORYCLIA [id number] [address] Glucose [Mass/Vol] 101 mg/dL Normal 60-105 [facility] Comment on above: Order Comment: Speci men Type: VENOUS BLOOD SPECIMEN Performed By: #### 2 4344-4 ####[facility]ATORYCLIA [id number] [place], [place] [id number] [place] [address] [place] HCO3 (Bld) [Moles/Vol] 26.0 mmol/L Normal 24-28 [facility] Comment on above: Order Comment: Speci men Type: VENOUS BLOOD SPECIMEN Performed By: #### 2 4344-4 ####[facility]ORATORYCLIA [id number] [address] [place] Hematocrit (Bld) [Volume fraction] 38.4 % Low 39.0-51.0 [facility] Comment on above: Order Comment: Speci men Type: VENOUS BLOOD SPECIMEN Performed By: #### 2 4344-4 ####[facility]ORATORYCLIA [id number] [address] OF [facility] Hemoglobin (Bld) [Mass/Vol] 12.5 g/dL Low 13.0-17.0 [facility] Comment on above: Order Comment: Speci men Type: VENOUS BLOOD SPECIMEN Performed By: #### 2 4344-4 ####[facility]ORATORYCLIA [id number] [address] STATES OF [facility] Methemoglobin (Bld) [Mass fraction] % Normal 0.0-1.5 [facility] Comment on above: Order Comment: Speci men Type: VENOUS BLOOD SPECIMEN Performed By: #### 2 4344-4 ####[facility]ORATORYCLIA [id number] [address] [place] O2 THERAPY Ventilator Normal [facility] Comment on above: Order Comment: Speci men Type: VENOUS BLOOD SPECIMEN Performed By: #### 2 4344-4 ####[facility]ORATORYCLIA [id number] [address] Oxygen (BldV) [Partial pressure] 44 mm[Hg] Normal 35-45 [facility] Comment on above: Order Comment: Speci men Type: VENOUS BLOOD SPECIMEN Performed By: #### 2 4344-4 ####[facility]ORATORYCLIA [id number] [address] Oxygen adjusted to patient's actual temperature (BldV) [Partial pressure] 46.8 mmHg High 35-45 [facility] Comment on above: Order Comment: Speci men Type: VENOUS BLOOD SPECIMEN Performed By: #### 2 4344-4 ####[facility] LABORATORYCLIA [id number] [address] Oxygen saturation in Blood 76.5 % Normal 60-85 [facility] Comment on above: Order Comment: Speci men Type: VENOUS BLOOD SPECIMEN Performed By: #### 2 4344-4 ####[facility]ORATORYCLIA [id number] [address] Oxyhemoglobin (BldV) [Mass fraction] 75 % Normal 60-85 [facility] Comment on above: Order Comment: Speci men Type: VENOUS BLOOD SPECIMEN Performed By: #### 2 4344-4 ####[facility]ORATORYCLIA [id number] [address] pH (BldV) 7.42 [pH] Normal 7.32-7.42 [facility] Comment on above: Order Comment: Speci men Type: VENOUS BLOOD SPECIMEN Performed By: #### 2 4344-4 ####[facility]ORATORYCLIA [id number] [address] pH adjusted to patient's actual temperature (BldV) 7.40 Normal 7.32-7.42 [facility] Comment on above: Order Comment: Speci men Type: VENOUS BLOOD SPECIMEN Performed By: #### 2 4344-4 ####[facility]ORATORYCLIA [id number] [address] [place] Potassium [Moles/Vol] 3.7 mmol/L Normal 3.5-5.0 [facility] Comment on above: Order Comment: Speci men Type: VENOUS BLOOD SPECIMEN Performed By: #### 2 4344-4 ####[facility]ATORYCLIA [id number] [address] Sodium [Moles/Vol] 141 mmol/L Normal 136-144 [facility] Comment on above: Order Comment: Speci men Type: VENOUS BLOOD SPECIMEN Performed By: #### 2 4344-4 ####[facility]ORATORYCLIA [id number] [address] [place] Magnesium SerPl-mCncon 06-05 Magnesium [Mass/Vol] 2.3 mg/dL Normal 1.7-2.3 [facility] Comment on above: Order Comment: Speci men Type: BLOOD SPECIMEN Performed By: #### 1 9123-9, 32860-3, 2777-1 ####[facility]ORATORYCLIA [id number] [address] Phosphate SerPl-mCncon 06-05 Phosphate [Mass/Vol] 2.9 mg/dL Normal 2.7-4.8 [facility] Comment on above: Order Comment: Speci men Type: BLOOD SPECIMEN Performed By: #### 1 9123-9, 31172-0, 2777-1 ####[facility]ORATORYCLIA [id number] [address] OF [facility] Vancomycin random [Mass/Vol] on 06-05-2021 Vancomycin [Mass/Vol] 23.2 ug/mL High 10.0-20.0 [facility] Comment on above: Order Comment: Speci men Type: BLOOD SPECIMEN Result Comment: Refe rence ranges and high/low indicator flags are provided as general guidelines only. The treating physician must determine appropriate target levels/dosing based on the specific clinical situation. Performed By: #### 4 091-5 ####[facility]ORATORYCLIA [id number] [place] [address] [place] (1,3)-Z-F-VZGESCfh 2 (1,3) B-D GLUCAN <31 Normal <60 [facility] Comment on above: Order Comment: Speci men Type: BLOOD SPECIMEN Performed By: #### B DGLUC ####[facility] LABCLIA [id number] [place] [address] [place] (1,3) B-D GLUCAN, QUAL Negative Normal NEGAT [facility] Comment on above: Order Comment: Speci men Type: BLOOD SPECIMEN Result Comment: Cert ain fungi, such as the genus Cryptococcus which produces very low levels of (1,3)-xnfe-F-tyvlzk, may not result in serum (1,3)-zkbj-E-qtupyt sufficiently elevated so as to be detected by the assay. Infections with fungi of the order Mucorales such as Absidia, Mucor and Rhizopus which are not known to produce (1,3)-fdtc-M-nfjjfv, are also observed to yield low serum (1,3)-vhib-L-xwjfiq titers.In addition, the yeast phase of Blastomyces dermatitidis produces little (1,3)-phum-E-lznxcn and may not be detected by the assay. Performed By: #### B DGLUC ####[facility] REFER[facility] LABCLIA [id number] [place] [address] [place] ALLIED HEALTHon 06-04-2021 ALLIED HEALTH Normal [facility] ALLIED HEALTH Normal [facility] ARTERIAL BLOOD GASESon 06-04 Base excess Calc (Bld) [Moles/Vol] 3 mmol/L High 0-2 [facility] Comment on above: Order Comment: Speci men Type: ARTERIAL BLOOD SPECIMEN Performed By: #### A LLBG ####[facility]ORATORYCLIA [id number] [address] [place] Body temperature 98.06 [degF] Normal [facility] Comment on above: Order Comment: Speci men Type: ARTERIAL BLOOD SPECIMEN Performed By: #### A LLBG ####[facility]ATORYCLIA [id number] [address] [place] CALCIUM IONIZED, PH CORRECTED 1.19 mmol/L Normal 1.08-1.30 [facility] Comment on above: Order Comment: Speci men Type: ARTERIAL BLOOD SPECIMEN Performed By: #### A LLBG ####[facility]ATORYCLIA [id number] [address] OF [facility] Calcium.ionized (BldV) [Mass/Vol] 1.14 mmol/L Normal 1.08-1.30 [facility] Comment on above: Order Comment: Speci men Type: ARTERIAL BLOOD SPECIMEN Performed By: #### A LLBG ####[facility]ATORYCLIA [id number] [address] OF [facility] Carboxyhemoglobin (BldA) [Mass fraction] 1.2 % Normal 0.0-2.0 [facility] Comment on above: Order Comment: Speci men Type: ARTERIAL BLOOD SPECIMEN Result Comment: Carb oxyhemoglobin Reference Range for Smokers: 2.0-8.0% Performed By: #### A LLBG ####[facility]ATORYCLIA [id number] [address] CO2 (Bld) [Partial pressure] 35 mm Hg Low 36-46 [facility] Comment on above: Order Comment: Speci men Type: ARTERIAL BLOOD SPECIMEN Performed By: #### A LLBG ####[facility]ATORYCLIA [id number] [address] CO2 [Moles/Vol] 23.2 mmol/L Normal 22-28 [facility] Comment on above: Order Comment: Speci men Type: ARTERIAL BLOOD SPECIMEN Performed By: #### A LLBG ####[facility]ORYCLIA [id number] [address] CO2 adjusted to patient's actual temperature (Bld) [Partial pressure] 34 mmHg Low 36-46 [facility] Comment on above: Order Comment: Speci men Type: ARTERIAL BLOOD SPECIMEN Performed By: #### A LLBG ####[facility]ATORYCLIA [id number] [address] Glucose [Mass/Vol] 115 mg/dL High 60-105 [facility] Comment on above: Order Comment: Speci men Type: ARTERIAL BLOOD SPECIMEN Performed By: #### A LLBG ####[facility]ATORYCLIA [id number] [address] [place] HCO3 (Bld) [Moles/Vol] 26 mmol/L Normal 22-26 [facility] Comment on above: Order Comment: Speci men Type: ARTERIAL BLOOD SPECIMEN Performed By: #### A LLBG ####[facility]ATORYCLIA [id number] [address] [place] Hematocrit (Bld) [Volume fraction] 35.3 % Low 39.0-51.0 [facility] Comment on above: Order Comment: Speci men Type: ARTERIAL BLOOD SPECIMEN Performed By: #### A LLBG ####[facility]ORYCLIA [id number] [address] [place] Hemoglobin (Bld) [Mass/Vol] 11.5 g/dL Low 13.0-17.0 [facility] Comment on above: Order Comment: Speci men Type: ARTERIAL BLOOD SPECIMEN Performed By: #### A LLBG ####[facility]ATORYCLIA [id number] [address] Methemoglobin (Bld) [Mass fraction] % Normal 0.0-1.5 [facility] Comment on above: Order Comment: Speci men Type: ARTERIAL BLOOD SPECIMEN Performed By: #### A LLBG ####[facility]ATORYCLIA [id number] [address] [place] O2 THERAPY Ventilator Normal [facility] Comment on above: Order Comment: Speci men Type: ARTERIAL BLOOD SPECIMEN Performed By: #### A LLBG ####[facility]ATORYCLIA [id number] [address] [place] Oxygen (Bld) [Partial pressure] 66 mm Hg Low 85-95 [facility] Comment on above: Order Comment: Speci men Type: ARTERIAL BLOOD SPECIMEN Performed By: #### A LLBG ####[facility]ORYCLIA [id number] [address] [place] Oxygen adjusted to patient's actual temperature (Bld) [Partial pressure] 64.3 mmHg Low 85-95 [facility] Comment on above: Order Comment: Speci men Type: ARTERIAL BLOOD SPECIMEN Performed By: #### A LLBG ####[facility]ATORYCLIA [id number] [address] OXYGEN SATURATION, ARTERIAL 95 % Normal 95-98 [facility] Comment on above: Order Comment: Speci men Type: ARTERIAL BLOOD SPECIMEN Performed By: #### A LLBG ####[facility]ATORYCLIA [id number] [address] Oxyhemoglobin (BldA) [Mass fraction] 93 % Low 95-98 [facility] Comment on above: Order Comment: Speci men Type: ARTERIAL BLOOD SPECIMEN Performed By: #### A LLBG ####[facility]ATORYCLIA [id number] [address] pH (Bld) 7.49 [pH] High 7.35-7.45 [facility] Comment on above: Order Comment: Speci men Type: ARTERIAL BLOOD SPECIMEN Performed By: #### A LLBG ####[facility]ORYCLIA [id number] [address] pH adjusted to patient's actual temperature (Bld) 7.49 High 7.35-7.45 [facility] Comment on above: Order Comment: Speci men Type: ARTERIAL BLOOD SPECIMEN Performed By: #### A LLBG ####[facility]ATORYCLIA [id number] [address] Potassium [Moles/Vol] 2.8 mmol/L Low 3.5-5.0 [facility] Comment on above: Order Comment: Speci men Type: ARTERIAL BLOOD SPECIMEN Performed By: #### A LLBG ####[facility]ATORYCLIA [id number] [address] Bas Metab 2000 Pnl SerPlon 0 06-04-2021 Sodium [Moles/Vol] 143 mmol/L Normal 136-144 [facility] Comment on above: Order Comment: Speci men Type: BLOOD SPECIMEN Performed By: #### 2 777-1, , ####[facility]ATORYCLIA [id number] [address] Order Comment: Speci men Type: ARTERIAL BLOOD SPECIMEN Performed By: #### A LLBG ####[facility]ORATORYCLIA [id number] [address] Basic metabolic 2000 panelon 06-04-2021 Anion gap [Moles/Vol] 11 mmol/L Normal 9-18 [facility] Comment on above: Order Comment: Speci men Type: BLOOD SPECIMEN Performed By: #### 2 777-1, , ####[facility]ORATORYCLIA [id number] [address] Calcium [Mass/Vol] 8.5 mg/dL Normal 8.5-10.2 [facility] Comment on above: Order Comment: Speci men Type: BLOOD SPECIMEN Performed By: #### 2 777-1, , ####[facility]ORATORYCLIA [id number] [address] Chloride [Moles/Vol] 107 mmol/L High 97-105 [facility] Comment on above: Order Comment: Speci men Type: BLOOD SPECIMEN Performed By: #### 2 777-1, , ####[facility]ORATORYCLIA [id number] [address] STATES OF [facility] CO2 [Moles/Vol] 25 mmol/L Normal 22-30 [facility] Comment on above: Order Comment: Speci men Type: BLOOD SPECIMEN Performed By: #### 2 777-1, , ####[facility]ORATORYCLIA [id number] [address] [place] Creatinine [Mass/Vol] 0.77 mg/dL Normal 0.73-1.22 [facility] Comment on above: Order Comment: Speci men Type: BLOOD SPECIMEN Performed By: #### 2 777-1, 45382-8, ####[facility]ORATORYCLIA [id number] [place] [address] [place] GFR/1.73 sq M.predicted [...] Performed By: #### 2 777-1, , ####[facility] [id number] [place] [id number] [place] Glucose [Mass/Vol] 107 mg/dL High 74-99 [facility] Comment on above: [facility] BLOOD [facility]CIM[facility] Result Comment: The [place] [employer] (ADA) provides guidance for cutoff [...] Standards of Medical Care in Diabetes 2016, [place] [employer]. Diabetes Care. 2016.39(Suppl 1). Performed By: #### 2 777-1, , ####[facility] LABORATORYCLIA [id number] [address] Potassium [Moles/Vol] 3.1 mmol/L Low 3.7-5.1 [facility] Comment on above: Order Comment: Speci men Type: BLOOD SPECIMEN Performed By: #### 2 777-1, , ####[facility] LABORATORYCLIA [id number] [address] Urea nitrogen [Mass/Vol] 19 mg/dL Normal 9-24 [facility] Comment on above: Order Comment: Speci men Type: BLOOD SPECIMEN Performed By: #### 2 777-1, , ####[facility]ATORYCLIA [id number] [address] CBC panel Auto (Bld)on 06-04 Erythrocyte distribution width (RBC) [Ratio] 15.8 % High 11.5-15.0 [facility] Comment on above: Order Comment: Speci men Type: BLOOD SPECIMEN Performed By: #### 5 8410-2 ####[facility]ATORYCLIA [id number] [address] Hematocrit (Bld) [Volume fraction] 36.9 % Low 39.0-51.0 [facility] Comment on above: Order Comment: Speci men Type: BLOOD SPECIMEN Performed By: #### 5 8410-2 ####[facility]ATORYCLIA [id number] [address] Hemoglobin (Bld) [Mass/Vol] 11.2 g/dL Low 13.0-17.0 [facility] Comment on above: Order Comment: Speci men Type: BLOOD SPECIMEN Performed By: #### 5 8410-2 ####[facility]ORATORYCLIA [id number] [address] OF [facility] MCH (RBC) [Entitic mass] 27.3 pg Normal 26.0-34.0 [facility] Comment on above: Order Comment: Speci men Type: BLOOD SPECIMEN Performed By: #### 5 8410-2 ####[facility]ATORYCLIA [id number] [address] MCHC (RBC) [Mass/Vol] 30.4 g/dL Low 30.5-36.0 [facility] Comment on above: Order Comment: Speci men Type: BLOOD SPECIMEN Performed By: #### 5 8410-2 ####[facility]ATORYCLIA [id number] [address] MCV (RBC) [Entitic vol] 89.8 fL Normal 80.0-100.0 [facility] Comment on above: Order Comment: Speci men Type: BLOOD SPECIMEN Performed By: #### 5 8410-2 ####[facility]ATORYCLIA [id number] [address] Nucleated RBC (Bld) [#/Vol] 10*3/uL Normal <0.01 [facility] Comment on above: Order Comment: Speci men Type: BLOOD SPECIMEN Performed By: #### 5 8410-2 ####[facility]ATORYCLIA [id number] [address] Platelet mean volume (Bld) [Entitic vol] 10.7 fL Normal 9.0-12.7 [facility] Comment on above: Order Comment: Speci men Type: BLOOD SPECIMEN Performed By: #### 5 8410-2 ####[facility]ATORYCLIA [id number] [address] Platelets (Bld) [#/Vol] 174 10*3/uL Normal 150-400 [facility] Comment on above: Order Comment: Speci men Type: BLOOD SPECIMEN Performed By: #### 5 8410-2 ####[facility]ATORYCLIA [id number] [address] RBC (Bld) [#/Vol] 4.11 10*6/uL Low 4.20-6.00 [facility] Comment on above: Order Comment: Speci men Type: BLOOD SPECIMEN Performed By: #### 5 8410-2 ####[facility]ORATORYCLIA [id number] [address] OF [facility] WBC (Bld) [#/Vol] 8.29 10*3/uL Normal 3.70-11.00 [facility] Comment on above: Order Comment: Speci men Type: BLOOD SPECIMEN Performed By: #### 5 8410-2 ####[facility]ATORYCLIA [id number] [address] CONSULT PROGon 06-04-2021 CONSULT PROG Normal [place] [...] BLOOD SPECIMEN Performed By: #### 2 777-1, 62689-9, 08037-1 ####[facility]ORATORYCLIA [id number] [address] NT-proBNP SerPl-mCncon 06-04 Natriuretic peptide.B prohormone N-Terminal [Mass/Vol] 229 pg/mL High <125 [facility] Comment on above: Order Comment: Speci men Type: BLOOD SPECIMEN Performed By: #### 3 3762-6, 4091-5 ####[facility]ATORYCLIA [id number] [address] Phosphate SerPl-mCncon 06-04 Phosphate [Mass/Vol] 2.0 mg/dL Low 2.7-4.8 [facility] Comment on above: Order Comment: Speci men Type: BLOOD SPECIMEN Performed By: #### 2 777-1, 22624-5, 88327-2 ####[facility]ATORYCLIA [id number] [address] Vancomycin random [Mass/Vol] on 06-04-2021 Vancomycin [...] By: #### 3 3762-6, 4091-5 ####[facility]ORATORYCLIA [id number] [address] XR ABDOMEN 1V SUPINEon 06-04 XR ABDOMEN 1V SUPINE Normal [facility] ALLIED HEALTHon 06-03-2021 ALLIED HEALTH Normal [facility] ARTERIAL BLOOD GASESon 06-03 Base excess Calc (Bld) [Moles/Vol] 5 mmol/L High 0-2 [facility] Comment on above: Order Comment: Speci men Type: ARTERIAL BLOOD SPECIMEN Performed By: #### A LLBG ####[facility]ATORYCLIA [id number] [address] Body temperature 99.5 [degF] Normal [facility] Comment on above: Order Comment: Speci men Type: ARTERIAL BLOOD SPECIMEN Performed By: #### A LLBG ####[facility]ATORYCLIA [id number] [address] CALCIUM IONIZED, PH CORRECTED 1.18 mmol/L Normal 1.08-1.30 [facility] Comment on above: Order Comment: Speci men Type: ARTERIAL BLOOD SPECIMEN Performed By: #### A LLBG ####[facility]ATORYCLIA [id number] [address] Calcium.ionized (BldV) [Mass/Vol] 1.16 mmol/L Normal 1.08-1.30 [facility] Comment on above: Order Comment: Speci men Type: ARTERIAL BLOOD SPECIMEN Performed By: #### A LLBG ####[facility]ORYCLIA [id number] [address] Carboxyhemoglobin (BldA) [Mass fraction] 1.2 % Normal 0.0-2.0 [facility] Comment on above: Order Comment: Speci men Type: ARTERIAL BLOOD SPECIMEN Result Comment: Carb oxyhemoglobin Reference Range for Smokers: 2.0-8.0% Performed By: #### A LLBG ####[facility]ATORYCLIA [id number] [address] CO2 (Bld) [Partial pressure] 45 mm Hg Normal 36-46 [facility] Comment on above: Order Comment: Speci men Type: ARTERIAL BLOOD SPECIMEN Performed By: #### A LLBG ####[facility]ATORYCLIA [id number] [address] CO2 [Moles/Vol] 26.9 mmol/L Normal 22-28 [facility] Comment on above: Order Comment: Speci men Type: ARTERIAL BLOOD SPECIMEN Performed By: #### A LLBG ####[facility]ATORYCLIA [id number] [address] CO2 adjusted to patient's actual temperature (Bld) [Partial pressure] 47 mmHg High 36-46 [facility] Comment on above: Order Comment: Speci men Type: ARTERIAL BLOOD SPECIMEN Performed By: #### A LLBG ####[facility]ATORYCLIA [id number] [address] [place] Glucose [Mass/Vol] 141 mg/dL High 60-105 [facility] Comment on above: Order Comment: Speci men Type: ARTERIAL BLOOD SPECIMEN Performed By: #### A LLBG ####[facility]ATORYCLIA [id number] [address] HCO3 (Bld) [Moles/Vol] 30 mmol/L High 22-26 [facility] Comment on above: Order Comment: Speci men Type: ARTERIAL BLOOD SPECIMEN Performed By: #### A LLBG ####[facility]ATORYCLIA [id number] [address] Hematocrit (Bld) [Volume fraction] 35.8 % Low 39.0-51.0 [facility] Comment on above: Order Comment: Speci men Type: ARTERIAL BLOOD SPECIMEN Performed By: #### A LLBG ####[facility]ATORYCLIA [id number] [address] Hemoglobin (Bld) [Mass/Vol] 11.6 g/dL Low 13.0-17.0 [facility] Comment on above: Order Comment: Speci men Type: ARTERIAL BLOOD SPECIMEN Performed By: #### A LLBG ####[facility]ORYCLIA [id number] [address] Methemoglobin (Bld) [Mass fraction] % Normal 0.0-1.5 [facility] Comment on above: Order Comment: Speci men Type: ARTERIAL BLOOD SPECIMEN Performed By: #### A LLBG ####[facility]ORYCLIA [id number] [address] O2 THERAPY Ventilator Normal [facility] Comment on above: Order Comment: Speci men Type: ARTERIAL BLOOD SPECIMEN Performed By: #### A LLBG ####[facility]ORYCLIA [id number] [address] Oxygen (Bld) [Partial pressure] 69 mm Hg Low 85-95 [facility] Comment on above: Order Comment: Speci men Type: ARTERIAL BLOOD SPECIMEN Performed By: #### A LLBG ####[facility]ATORYCLIA [id number] [address] Oxygen adjusted to patient's actual temperature (Bld) [Partial pressure] 70.8 mmHg Low 85-95 [facility] Comment on above: Order Comment: Speci men Type: ARTERIAL BLOOD SPECIMEN Performed By: #### A LLBG ####[facility]ATORYCLIA [id number] [address] OXYGEN SATURATION, ARTERIAL 94 % Low 95-98 [facility] Comment on above: Order Comment: Speci men Type: ARTERIAL BLOOD SPECIMEN Performed By: #### A LLBG ####[facility]ATORYCLIA [id number] [address] Oxyhemoglobin (BldA) [Mass fraction] 93 % Low 95-98 [facility] Comment on above: Order Comment: Speci men Type: ARTERIAL BLOOD SPECIMEN Performed By: #### A LLBG ####[facility]ATORYCLIA [id number] [address] [place] pH (Bld) 7.43 [pH] Normal 7.35-7.45 [facility] Comment on above: Order Comment: Speci men Type: ARTERIAL BLOOD SPECIMEN Performed By: #### A LLBG ####[facility]ORYCLIA [id number] [address] pH adjusted to patient's actual temperature (Bld) 7.43 Normal 7.35-7.45 [facility] Comment on above: Order Comment: Speci men Type: ARTERIAL BLOOD SPECIMEN Performed By: #### A LLBG ####[facility]ATORYCLIA [id number] [address] STATES OF [facility] Potassium [Moles/Vol] 3.1 mmol/L Low 3.5-5.0 [facility] Comment on above: Order Comment: Speci men Type: ARTERIAL BLOOD SPECIMEN Performed By: #### A LLBG ####[facility]ATORYCLIA [id number] [address] [place] Sodium [Moles/Vol] 145 mmol/L High 136-144 [facility] Comment on above: Order Comment: Speci men Type: ARTERIAL BLOOD SPECIMEN Performed By: #### A LLBG ####[facility]ORATORYCLIA [id number] [address] [place] ASPERGILLUS GALACTOMANNAN SE RUMon 06-03-2021 Galactomannan Ag IA Ql Negative Normal NEGAT [facility] Comment on above: Order Comment: Speci [...] is suspected. Performed By: #### A SGALS ####[facility] LABCLIA [id number] [place] [facility] [address] OF [facility] Galactomannan Ag IA Qn <0.50 Normal [facility] Comment on above: Order Comment: Speci men Type: BLOOD SPECIMEN Result Comment: Inde x Values are Interpreted as Follows:Negative specimens <0.50Positive specimens >=0.50 Performed By: #### A SGALS ####[facility] REFER[facility] LABCLIA [id number] [place] [facility] [place] [id number] [facility] Basic metabolic 2000 panelon 06-03-2021 Anion gap [Moles/Vol] 8 mmol/L Low 9-18 [facility] Comment on above: Order Comment: Speci men Type: BLOOD SPECIMEN Performed By: #### 1 9123-9, 2777-1, 25039-2 ####[facility]ORATORYCLIA [id number] [address] STATES OF [facility] Calcium [Mass/Vol] 8.0 mg/dL Low 8.5-10.2 [facility] Comment on above: Order Comment: Speci men Type: BLOOD SPECIMEN Performed By: #### 1 9123-9, 2777-1, 67891-0 ####[facility]ORATORYCLIA [id number] [address] STATES OF [facility] Chloride [Moles/Vol] 110 mmol/L High 97-105 [facility] Comment on above: Order Comment: Speci men Type: BLOOD SPECIMEN Performed By: #### 1 9123-9, 2777-1, 26061-0 ####[facility]ORATORYCLIA [id number] [address] CO2 [Moles/Vol] 28 mmol/L Normal 22-30 [facility] Comment on above: Order Comment: Speci men Type: BLOOD SPECIMEN Performed By: #### 1 9123-9, 2777-1, 93572-8 ####[facility]ORATORYCLIA [id number] [address] STATES OF [facility] Creatinine [Mass/Vol] 0.75 mg/dL Normal 0.73-1.22 [facility] Comment on above: Order Comment: Speci men Type: BLOOD SPECIMEN Performed By: #### 1 9123-9, 2777-, 38804-4 ####[facility]ORATORYCLIA [id number] [address] STATES [facility] GFR/1.73 sq M.predicted MDRD (S/P/Bld) [Vol [...] GFR. Performed By: #### 1 9123-9, 2777-1, 18771-2 ####[facility]ORATORYCLIA [id number] [address] [place] Glucose [Mass/Vol] 141 mg/dL High 74-99 [facility] Comment on above: Order Comment: Speci men Type: BLOOD SPECIMEN Result Comment: The [place] [employer] (ADA) provides guidance for cutoff [...] Standards of Medical Care in Diabetes 2016, [place] [employer]. Diabetes Care. 2016.39(Suppl 1). Performed By: #### 1 9123-9, 2777-, 70973-4 ####[facility]ORATORYCLIA [id number] [address] STATES OF [facility] Potassium [Moles/Vol] 3.3 mmol/L Low 3.7-5.1 [facility] Comment on above: Order Comment: Speci men Type: BLOOD SPECIMEN Performed By: #### 1 9123-9, 2777, 48783-7 ####[facility]ORATORYCLIA [id number] [address] Sodium [Moles/Vol] 146 mmol/L High 136-144 [facility] Comment on above: Order Comment: Speci men Type: BLOOD SPECIMEN Performed By: #### 1 9123-9, 2777, 84892-0 ####[facility]ORATORYCLIA [id number] [address] Urea nitrogen [Mass/Vol] 10 mg/dL Normal 9-24 [facility] Comment on above: Order Comment: Speci men Type: BLOOD SPECIMEN Performed By: #### 1 9123-9, 2777-, 81635-4 ####[facility]ORATORYCLIA [id number] [address] OF [facility] CASE MANAGEMon 06-03-2021 CASE MANAGEM Normal [facility] CBC panel Auto (Bld)on 06-03 Erythrocyte distribution width (RBC) [Ratio] 15.6 % High 11.5-15.0 [facility] Comment on above: Order Comment: Speci men Type: BLOOD SPECIMEN Performed By: #### 5 8410-2 ####[facility]ORATORYCLIA [id number] [address] Hematocrit (Bld) [Volume fraction] 36.9 % Low 39.0-51.0 [facility] Comment on above: Order Comment: Speci men Type: BLOOD SPECIMEN Performed By: #### 5 8410-2 ####[facility]ATORYCLIA [id number] [address] Hemoglobin (Bld) [Mass/Vol] 11.1 g/dL Low 13.0-17.0 [facility] Comment on above: Order Comment: Speci men Type: BLOOD SPECIMEN Performed By: #### 5 8410-2 ####[facility]ORATORYCLIA [id number] [address] MCH (RBC) [Entitic mass] 27.0 pg Normal 26.0-34.0 [facility] Comment on above: Order Comment: Speci men Type: BLOOD SPECIMEN Performed By: #### 5 8410-2 ####[facility]ATORYCLIA [id number] [address] MCHC (RBC) [Mass/Vol] 30.1 g/dL Low 30.5-36.0 [facility] Comment on above: Order Comment: Speci men Type: BLOOD SPECIMEN Performed By: #### 5 8410-2 ####[facility]ORATORYCLIA [id number] [address] MCV (RBC) [Entitic vol] 89.8 fL Normal 80.0-100.0 [facility] Comment on above: Order Comment: Speci men Type: BLOOD SPECIMEN Performed By: #### 5 8410-2 ####[facility]ATORYCLIA [id number] [address] Nucleated RBC (Bld) [#/Vol] 10*3/uL Normal <0.01 [facility] Comment on above: Order Comment: Speci men Type: BLOOD SPECIMEN Performed By: #### 5 8410-2 ####[facility]ATORYCLIA [id number] [address] Platelet mean volume (Bld) [Entitic vol] 10.5 fL Normal 9.0-12.7 [facility] Comment on above: Order Comment: Speci men Type: BLOOD SPECIMEN Performed By: #### 5 8410-2 ####[facility]ATORYCLIA [id number] [address] [place] Platelets (Bld) [#/Vol] 196 10*3/uL Normal 150-400 [facility] Comment on above: Order Comment: Speci men Type: BLOOD SPECIMEN Performed By: #### 5 8410-2 ####[facility]ATORYCLIA [id number] [address] RBC (Bld) [#/Vol] 4.11 10*6/uL Low 4.20-6.00 [facility] Comment on above: Order Comment: Speci men Type: BLOOD SPECIMEN Performed By: #### 5 8410-2 ####[facility]ATORYCLIA [id number] [address] WBC (Bld) [#/Vol] 8.18 10*3/uL Normal 3.70-11.00 [facility] Comment on above: Order Comment: Speci men Type: BLOOD SPECIMEN Performed By: #### 5 8410-2 ####[facility]ORATORYCLIA [id number] [address] OF [facility] CONSULTon 06-03-2021 CONSULT Normal [facility] CONSULT PROGon 06-03-2021 CONSULT PROG Normal [facility] Gas and Carbon monoxide pane l (BldV)on 06-03-2021 Base excess Calc (BldV) [Moles/Vol] 1.4 mmol/L Normal 0-2 [facility] Comment on above: Order Comment: Speci men Type: VENOUS BLOOD SPECIMEN Performed By: #### 2 4344-4 ####[facility]ORATORYCLIA [id number] [place] [address] Body temperature 98.42 [degF] Normal [facility] Comment on above: Order Comment: Speci men Type: VENOUS BLOOD SPECIMEN Performed By: #### 2 4344-4 ####[facility]ORATORYCLIA [id number] [address] CALCIUM IONIZED, PH CORRECTED 1.09 mmol/L Normal 1.08-1.30 [facility] Comment on above: Order Comment: Speci men Type: VENOUS BLOOD SPECIMEN Performed By: #### 2 4344-4 ####[facility]ATORYCLIA [id number] [address] Calcium.ionized (BldV) [Mass/Vol] 1.12 mmol/L Normal 1.08-1.30 [facility] Comment on above: Order Comment: Speci men Type: VENOUS BLOOD SPECIMEN Performed By: #### 2 4344-4 ####[facility]ATORYCLIA [id number] [address] Carboxyhemoglobin (BldV) [Mass fraction] 1.7 % Normal 0.0-2.0 [facility] Comment on above: Order Comment: Speci men Type: VENOUS BLOOD SPECIMEN Result Comment: Carb oxyhemoglobin Reference Range for Smokers: 2.0-8.0% Performed By: #### 2 4344-4 ####[facility]ATORYCLIA [id number] [address] CO2 (BldV) [Partial pressure] 50 mm[Hg] Normal 42-55 [facility] Comment on above: Order Comment: Speci men Type: VENOUS BLOOD SPECIMEN Performed By: #### 2 4344-4 ####[facility]ATORYCLIA [id number] [address] CO2 [Moles/Vol] 24.9 mmol/L Low 25-29 [facility] Comment on above: Order Comment: Speci men Type: VENOUS BLOOD SPECIMEN Performed By: #### 2 4344-4 ####[facility]ORYCLIA [id number] [address] CO2 adjusted to patient's actual temperature (BldV) [Partial pressure] 50 mmHg Normal 42-55 [facility] Comment on above: Order Comment: Speci men Type: VENOUS BLOOD SPECIMEN Performed By: #### 2 4344-4 ####[facility]ATORYCLIA [id number] [place], [place] [address] [place] [address] [place] FIO2 30 % Normal [facility] Comment on above: Order Comment: Speci men Type: VENOUS BLOOD SPECIMEN Performed By: #### 2 4344-4 ####[facility]ORATORYCLIA [id number] [address] Glucose [Mass/Vol] 191 mg/dL High 60-105 [facility] Comment on above: Order Comment: Speci men Type: VENOUS BLOOD SPECIMEN Performed By: #### 2 4344-4 ####[facility]ORYCLIA [id number] [address] HCO3 (Bld) [Moles/Vol] 27.1 mmol/L Normal 24-28 [facility] Comment on above: Order Comment: Speci men Type: VENOUS BLOOD SPECIMEN Performed By: #### 2 4344-4 ####[facility]ORYCLIA [id number] [address] Hematocrit (Bld) [Volume fraction] 36.2 % Low 39.0-51.0 [facility] Comment on above: Order Comment: Speci men Type: VENOUS BLOOD SPECIMEN Performed By: #### 2 4344-4 ####[facility]ORYCLIA [id number] [address] Hemoglobin (Bld) [Mass/Vol] 11.8 g/dL Low 13.0-17.0 [facility] Comment on above: Order Comment: Speci men Type: VENOUS BLOOD SPECIMEN Performed By: #### 2 4344-4 ####[facility]ORYCLIA [id number] [address] INHALED TIDAL VOLUME (ML) 530 Normal [facility] Comment on above: Order Comment: Speci men Type: VENOUS BLOOD SPECIMEN Performed By: #### 2 4344-4 ####[facility]ATORYCLIA [id number] [place] [address] [facility] [place] Methemoglobin (Bld) [Mass fraction] % Normal 0.0-1.5 [facility] Comment on above: Order Comment: Speci men Type: VENOUS BLOOD SPECIMEN Performed By: #### 2 4344-4 ####[facility]ATORYCLIA [id number] [place] [address] [facility] [place] O2 THERAPY Ventilator Normal [facility] Comment on above: Order Comment: Speci men Type: VENOUS BLOOD SPECIMEN Performed By: #### 2 4344-4 ####[facility]ORYCLIA [id number] [place], [place] [address] [place] [address] [place] Oxygen (BldV) [Partial pressure] 69 mm[Hg] High 35-45 [facility] Comment on above: Order Comment: Speci men Type: VENOUS BLOOD SPECIMEN Performed By: #### 2 4344-4 ####[facility]ORYCLIA [id number] [place], [place] [address] [place] [address] [place] Oxygen adjusted to patient's actual temperature (BldV) [Partial pressure] 68.8 mmHg High 35-45 [facility] Comment on above: Order Comment: Speci men Type: VENOUS BLOOD SPECIMEN Performed By: #### 2 4344-4 ####[facility]ORYCLIA [id number] [place], [place] [address] [place] [address] [place] Oxygen saturation in Blood 92.4 % High 60-85 [facility] Comment on above: Order Comment: Speci men Type: VENOUS BLOOD SPECIMEN Performed By: #### 2 4344-4 ####[facility]ORYCLIA [id number] [place], [place] [address] [place] [address] [place] Oxyhemoglobin (BldV) [Mass fraction] 90 % High 60-85 [facility] Comment on above: Order Comment: Speci men Type: VENOUS BLOOD SPECIMEN Performed By: #### 2 4344-4 ####[facility]ORYCLIA [id number] [address] PEEP/CPAP 8 cmH2O Normal [facility] Comment on above: Order Comment: Speci men Type: VENOUS BLOOD SPECIMEN Performed By: #### 2 4344-4 ####[facility]ORYCLIA [id number] [address] pH (BldV) 7.35 [pH] Normal 7.32-7.42 [facility] Comment on above: Order Comment: Speci men Type: VENOUS BLOOD SPECIMEN Performed By: #### 2 4344-4 ####[facility]ORYCLIA [id number] [address] pH adjusted to patient's actual temperature (BldV) 7.35 Normal 7.32-7.42 [facility] Comment on above: Order Comment: Speci men Type: VENOUS BLOOD SPECIMEN Performed By: #### 2 4344-4 ####[facility]ORY[facility] [id number] [address] Potassium [Moles/Vol] 3.6 mmol/L Normal 3.5-5.0 [facility] Comment on above: Order Comment: Speci men Type: VENOUS BLOOD SPECIMEN Performed By: #### 2 4344-4 ####[facility]ORYCLIA [id number] [address] SET VENTILATOR RESPIRATORY RATE (BPM) 18 BPM Normal [facility] Comment on above: Order Comment: Speci men Type: VENOUS BLOOD SPECIMEN Performed By: #### 2 4344-4 ####[facility]ORYCL[facility] [id number] [address] Sodium [Moles/Vol] 141 mmol/L Normal 136-144 [facility] Comment on above: Order Comment: Speci men Type: VENOUS BLOOD SPECIMEN Performed By: #### 2 4344-4 ####[facility]ATORYCLIA [id number] [address] HIV 1+2 Ab IA Qlon 01-28-202 2 HIV 1 and 2 Ab IA.rapid Nom Normal [facility] Comment on above: Order Comment: Speci men Type: BLOOD SPECIMEN Result Comment: Test not indicated. Performed By: #### 3 1201-7, TOXMG ####[facility]ATORYCLIA [id number] [place] [address] [place] HIV 1+2 Ab+HIV1 p24 Ag IA Ql Non-Reactive Normal Nonreactive [facility] Comment on above: Order Comment: Speci men Type: BLOOD SPECIMEN Result Comment: [place] Rev. Code 3701.243(E): This information has been [...] By: #### 3 1201-7, TOXMG ####[facility]ATORYCLIA [id number] [address] HIVINT Normal [facility] Comment on above: Order Comment: Speci men Type: BLOOD SPECIMEN Result Comment: No e vidence of HIV-1 or HIV-2 infection. Should recent infection be suspected, repeat testing may be considered 2-3 weeks after this draw. Performed By: #### 3 1201-7, TOXMG ####[facility]ATORYCLIA [id number] [address] [place] Magnesium SerPl-mCncon 06-03 Magnesium [Mass/Vol] 1.9 mg/dL Normal 1.7-2.3 [facility] Comment on above: Order Comment: Speci men Type: BLOOD SPECIMEN Performed By: #### 1 9123-9, 2777-1, 15378-3 ####[facility]ATORYCLIA [id number] [place] [address] [place] NUTRITIONon 06-03-2021 NUTRITION Normal [facility] Phosphate SerPl-mCncon 06-03 Phosphate [Mass/Vol] 1.9 mg/dL Low 2.7-4.8 [facility] Comment on above: Order Comment: Speci men Type: BLOOD SPECIMEN Performed By: #### 1 9123-9, 2777-1, 65390-6 ####[facility]ATORYCLIA [id number] [address] TOXOPLASMOSIS IGM AND IGG AB on [...] By: #### 3 1201-7, TOXMG ####[facility]ATORYCLIA [id number] [address] TOXO IGM QUAL Negative Normal Negative [facility] Comment on above: Order Comment: Speci men Type: BLOOD SPECIMEN Result Comment: No s erological evidence of recent exposure to Toxoplasma gondii.Negative <0.9 IndexEquivocal 0.9-0.99 IndexPositive >=1.0 Index Performed By: #### 3 1201-7, TOXMG ####[facility]ORATORYCLIA [id number] [address] [place] US DVT [...] Performed By: #### A LLBG ####[facility]ATORYCLIA [id number] [address] Body temperature 99.32 [degF] Normal [facility] Comment on above: Order Comment: Speci men Type: ARTERIAL BLOOD SPECIMEN Performed By: #### A LLBG ####[facility]ORYCLIA [id number] [address] CALCIUM IONIZED, PH CORRECTED 1.15 mmol/L Normal 1.08-1.30 [facility] Comment on above: Order Comment: Speci men Type: ARTERIAL BLOOD SPECIMEN Performed By: #### A LLBG ####[facility]ORYCLIA [id number] [address] Calcium.ionized (BldV) [Mass/Vol] 1.13 mmol/L Normal 1.08-1.30 [facility] Comment on above: Order Comment: Speci men Type: ARTERIAL BLOOD SPECIMEN Performed By: #### A LLBG ####[facility]ATORYCLIA [id number] [address] Carboxyhemoglobin (BldA) [Mass fraction] 1.4 % Normal 0.0-2.0 [facility] Comment on above: Order Comment: Speci men Type: ARTERIAL BLOOD SPECIMEN Result Comment: Carb oxyhemoglobin Reference Range for Smokers: 2.0-8.0% Performed By: #### A LLBG ####[facility]ATORYCLIA [id number] [address] CO2 (Bld) [Partial pressure] 39 mm Hg Normal 36-46 [facility] Comment on above: Order Comment: Speci men Type: ARTERIAL BLOOD SPECIMEN Performed By: #### A LLBG ####[facility]ORYCLIA [id number] [address] [place] CO2 [Moles/Vol] 23.4 mmol/L Normal 22-28 [facility] Comment on above: Order Comment: Speci men Type: ARTERIAL BLOOD SPECIMEN Performed By: #### A LLBG ####[facility]ORYCLIA [id number] [address] CO2 adjusted to patient's actual temperature (Bld) [Partial pressure] 40 mmHg Normal 36-46 [facility] Comment on above: Order Comment: Speci men Type: ARTERIAL BLOOD SPECIMEN Performed By: #### A LLBG ####[facility]CLIA [id number] [address] Glucose [Mass/Vol] 156 mg/dL High 60-105 [facility] Comment on above: Order Comment: Speci men Type: ARTERIAL BLOOD SPECIMEN Performed By: #### A LLBG ####[facility]ORYCLIA [id number] [address] HCO3 (Bld) [Moles/Vol] 26 mmol/L Normal 22-26 [facility] Comment on above: Order Comment: Speci men Type: ARTERIAL BLOOD SPECIMEN Performed By: #### A LLBG ####[facility]ORYCLIA [id number] [address] Hematocrit (Bld) [Volume fraction] 33.9 % Low 39.0-51.0 [facility] Comment on above: Order Comment: Speci men Type: ARTERIAL BLOOD SPECIMEN Performed By: #### A LLBG ####[facility]ORYCLIA [id number] [address] OF [facility] Hemoglobin (Bld) [Mass/Vol] 11.0 g/dL Low 13.0-17.0 [facility] Comment on above: Order Comment: Speci men Type: ARTERIAL BLOOD SPECIMEN Performed By: #### A LLBG ####[facility]ORYCLIA [id number] [address] Methemoglobin (Bld) [Mass fraction] % Normal 0.0-1.5 [facility] Comment on above: Order Comment: Speci men Type: ARTERIAL BLOOD SPECIMEN Performed By: #### A LLBG ####[facility]ORYCLIA [id number] [address] O2 THERAPY Ventilator Normal [facility] Comment on above: Order Comment: Speci men Type: ARTERIAL BLOOD SPECIMEN Performed By: #### A LLBG ####[facility]ORYCLIA [id number] [place], [place] [address] [place] [address] Oxygen (Bld) [Partial pressure] 70 mm Hg Low 85-95 [facility] Comment on above: Order Comment: Speci men Type: ARTERIAL BLOOD SPECIMEN Performed By: #### A LLBG ####[facility]ORYCLIA [id number] [address] Oxygen adjusted to patient's actual temperature (Bld) [Partial pressure] 72.2 mmHg Low 85-95 [facility] Comment on above: Order Comment: Speci men Type: ARTERIAL BLOOD SPECIMEN Performed By: #### A LLBG ####[facility]ATORYCLIA [id number] [address] OXYGEN SATURATION, ARTERIAL 96 % Normal 95-98 [facility] Comment on above: Order Comment: Speci men Type: ARTERIAL BLOOD SPECIMEN Performed By: #### A LLBG ####[facility]ATORYCLIA [id number] [address] Oxyhemoglobin (BldA) [Mass fraction] 94 % Low 95-98 [facility] Comment on above: Order Comment: Speci men Type: ARTERIAL BLOOD SPECIMEN Performed By: #### A LLBG ####[facility]ORYCLIA [id number] [address] [place] pH (Bld) 7.43 [pH] Normal 7.35-7.45 [facility] Comment on above: Order Comment: Speci men Type: ARTERIAL BLOOD SPECIMEN Performed By: #### A LLBG ####[facility]ORYCLIA [id number] [address] pH adjusted to patient's actual temperature (Bld) 7.42 Normal 7.35-7.45 [facility] Comment on above: Order Comment: Speci men Type: ARTERIAL BLOOD SPECIMEN Performed By: #### A LLBG ####[facility]ORYCLIA [id number] [address] [place] Potassium [Moles/Vol] 2.6 mmol/L Low 3.5-5.0 [facility] Comment on above: Order Comment: Speci men Type: ARTERIAL BLOOD SPECIMEN Performed By: #### A LLBG ####[facility]ATORYCLIA [id number] [address] STATES OF [facility] Sodium [Moles/Vol] 142 mmol/L Normal 136-144 [facility] Comment on above: Order Comment: Speci men Type: ARTERIAL BLOOD SPECIMEN Performed By: #### A LLBG ####[facility]ATORYCLIA [id number] [address] [place] Ammonia Plas-sCncon 06-02-19 22 Ammonia (P) [Moles/Vol] 20 umol/L Normal 16-60 [facility] Comment on above: Order Comment: Speci men Type: BLOOD SPECIMEN Performed By: #### 1 6362-6 ####[facility]ATORYCLIA [id number] [address] [place] Bacteria CSF Culton 06-02-19 22 Bacteria identified Cx Nom (CSF) CULTURE, CSF: No growth 14 days GRAM STAIN: No organisms seen Rare Polymorphonuclear leukocytes Gram stain performed on cytospun specimen. Normal [facility] Comment on above: Performed By: #### 6 06-4 ####[facility]ATORYCLIA [id number] [address] [place] Basic metabolic 2000 panelon 06-02-2021 Anion gap [Moles/Vol] 10 mmol/L Normal 9-18 [facility] Comment on above: Order Comment: Speci men Type: BLOOD SPECIMEN Performed By: #### 2 4321-2, , 2776-05 ####[facility]ATORYCLIA [id number] [address] STATES OF [facility] Calcium [Mass/Vol] 8.1 mg/dL Low 8.5-10.2 [facility] Comment on above: Order Comment: Speci men Type: BLOOD SPECIMEN Performed By: #### 2 4321-2, , 2776 ####[facility]ATORYCLIA [id number] [place], [place] [id number] [place] [address] [place] Chloride [Moles/Vol] 108 mmol/L High 97-105 [facility] Comment on above: Order Comment: Speci men Type: BLOOD SPECIMEN Performed By: #### 2 4321-2, , 2776-05 ####[facility]ATORYCLIA [id number] [address] [place] CO2 [Moles/Vol] 24 mmol/L Normal 22-30 [facility] Comment on above: Order Comment: Speci men Type: BLOOD SPECIMEN Performed By: #### 2 1-2, , 2776-05 ####[facility]ATORYCLIA [id number] [address] [place] Creatinine [Mass/Vol] 0.78 mg/dL Normal 0.73-1.22 [facility] Comment on above: Order Comment: Speci men Type: BLOOD SPECIMEN Performed By: #### 2 1-2, , 2776-05 ####[facility]ATORYCLIA [id number] [address] [place] GFR/1.73 sq [...] #### 2 4321-2, , 2776-05 ####[facility]ATORYCLIA [id number] [place] [address] [place] Glucose [Mass/Vol] 162 mg/dL High 74-99 [facility] Comment on above: Order Comment: Speci men Type: BLOOD SPECIMEN Result Comment: The [place] [employer] (ADA) provides guidance for cutoff [...] Standards of Medical Care in Diabetes 2016, [place] [employer]. Diabetes Care. 2016.39(Suppl 1). Performed By: #### 2 1-2, , 2776-05 ####[facility]ATORYCLIA [id number] [address] [place] Potassium [Moles/Vol] 2.7 mmol/L Low 3.7-5.1 [facility] Comment on above: Order Comment: Speci men Type: BLOOD SPECIMEN Performed By: #### 2 1-2, , 2776-05 ####[facility]ATORYCLIA [id number] [address] [place] Sodium [Moles/Vol] 142 mmol/L Normal 136-144 [facility] Comment on above: Order Comment: Speci men Type: BLOOD SPECIMEN Performed By: #### 2 4321-2, , 2776-05 ####[facility]ORYCLIA [id number] [address] [place] Urea nitrogen [Mass/Vol] 12 mg/dL Normal 9-24 [facility] Comment on above: Order Comment: Speci men Type: BLOOD SPECIMEN Performed By: #### 2 1-2, , 2776-05 ####[facility]ATORYCLIA [id number] [address] CBC panel Auto (Bld)on 06-02 Erythrocyte distribution width (RBC) [Ratio] 15.0 % Normal 11.5-15.0 [facility] Comment on above: Order Comment: Speci men Type: BLOOD SPECIMEN Performed By: #### 5 8410-2 ####[facility]ATORYCLIA [id number] [address] Hematocrit (Bld) [Volume fraction] 34.3 % Low 39.0-51.0 [facility] Comment on above: Order Comment: Speci men Type: BLOOD SPECIMEN Performed By: #### 5 8410-2 ####[facility]ORYCLIA [id number] [address] Hemoglobin (Bld) [Mass/Vol] 10.3 g/dL Low 13.0-17.0 [facility] Comment on above: Order Comment: Speci men Type: BLOOD SPECIMEN Performed By: #### 5 8410-2 ####[facility]ATORYCLIA [id number] [address] MCH (RBC) [Entitic mass] 27.0 pg Normal 26.0-34.0 [facility] Comment on above: Order Comment: Speci men Type: BLOOD SPECIMEN Performed By: #### 5 8410-2 ####[facility]ATORYCLIA [id number] [address] MCHC (RBC) [Mass/Vol] 30.0 g/dL Low 30.5-36.0 [facility] Comment on above: Order Comment: Speci men Type: BLOOD SPECIMEN Performed By: #### 5 8410-2 ####[facility]ATORYCLIA [id number] [address] MCV (RBC) [Entitic vol] 90.0 fL Normal 80.0-100.0 [facility] Comment on above: Order Comment: Speci men Type: BLOOD SPECIMEN Performed By: #### 5 8410-2 ####[facility]ATORYCLIA [id number] [address] Nucleated RBC (Bld) [#/Vol] 10*3/uL Normal <0.01 [facility] Comment on above: Order Comment: Speci men Type: BLOOD SPECIMEN Performed By: #### 5 8410-2 ####[facility]ATORYCLIA [id number] [address] Platelet mean volume (Bld) [Entitic vol] 10.2 fL Normal 9.0-12.7 [facility] Comment on above: Order Comment: Speci men Type: BLOOD SPECIMEN Performed By: #### 5 8410-2 ####[facility]ATORYCLIA [id number] [address] Platelets (Bld) [#/Vol] 194 10*3/uL Normal 150-400 [facility] Comment on above: Order Comment: Speci men Type: BLOOD SPECIMEN Performed By: #### 5 8410-2 ####[facility]ORYCLIA [id number] [address] RBC (Bld) [#/Vol] 3.81 10*6/uL Low 4.20-6.00 [facility] Comment on above: Order Comment: Speci men Type: BLOOD SPECIMEN Performed By: #### 5 8410-2 ####[facility]ATORYCLIA [id number] [address] WBC (Bld) [#/Vol] 9.22 10*3/uL Normal 3.70-11.00 [facility] Comment on above: Order Comment: Speci men Type: BLOOD SPECIMEN Performed By: #### 5 8410-2 ####[facility]ATORYCLIA [id number] [address] CONSULT PROGon 06-02-2021 CONSULT PROG Normal [facility] CSF MANUAL DIFFon 06-02-2021 DIF TTL, CSF 25 cells counted Normal [facility] Comment on above: Order Comment: Speci men Type: CEREBROSPINAL FLUID Performed By: #### 3 4563-7, [id number], [id number] ####[facility]ORYCLIA [id number] [address] [place] LYMPH%, CSF 4 % Low 50-90 [facility] Comment on above: Order Comment: Speci men Type: CEREBROSPINAL FLUID Performed By: #### 3 4563-7, [id number], [id number] ####[facility]ORYCLIA [id number] [address] [place] MACRO%, CSF 4 % High <1 [facility] Comment on above: Order Comment: Speci men Type: CEREBROSPINAL FLUID Performed By: #### 3 4563-7, [id number], [id number] ####[facility]ORYCLIA [id number] [address] [place] MONO%, CSF 20 % Normal 10-50 [facility] Comment on above: Order Comment: Speci men Type: CEREBROSPINAL FLUID Performed By: #### 3 4563-7, [id number], [id number] ####[facility]ORYCLIA [id number] [address] [place] NEUT%, CSF 72 % High 0-3 [facility] Comment on above: Order Comment: Speci men Type: CEREBROSPINAL FLUID Performed By: #### 3 4563-7, [id number], [id number] ####[facility]CLIA [id number] [address] CSF PATHOLOGIST INTERP (LAB REFLEX ORDER-NO BILL)on 06-02-2021 CSF STAFF REVIEW Negative Normal [facility] Comment on above: Order Comment: Speci men Type: CEREBROSPINAL FLUID Performed By: #### 3 4563-7, [id number], [id number] ####[facility]ORYCLIA [id number] [address] Pathologist name Reviewed by Amador Stevens MD [facility] Comment on above: Order Comment: Speci men Type: CEREBROSPINAL FLUID Performed By: #### 3 4563-7, [id number], [id number] ####[facility]ORYCLIA [id number] [address] Cell count panel (CSF)on Clarity (CSF) Clear Normal Clear [facility] Comment on above: Order Comment: Speci men Type: CEREBROSPINAL FLUID Performed By: #### 3 4563-7, [id number], [id number] ####[facility]CLIA [id number] [address] Clarity (Unsp spec) Not Indicated Normal Clear [facility] Comment on above: Order Comment: Speci men Type: CEREBROSPINAL FLUID Performed By: #### 3 4563-7, [id number], [id number] ####[facility]ORYCLIA [id number] [address] Color (CSF) Colorless Normal Colorless [facility] Comment on above: Order Comment: Speci men Type: CEREBROSPINAL FLUID Performed By: #### 3 4563-7, [id number], [id number] ####[facility]ORYCLIA [id number] [address] Color (Spun CSF) Not Indicated Normal Colorless [facility] Comment on above: Order Comment: Speci men Type: CEREBROSPINAL FLUID Performed By: #### 3 4563-7, [id number], [id number] ####[facility]ORYCLIA [id number] [address] CSF TUBE NUMBER [employer] Normal [facility] Comment on above: Order Comment: Speci men Type: CEREBROSPINAL FLUID Performed By: #### 3 4563-7, [id number], [id number] ####[facility]CLIA [id number] [address] RBC Manual cnt (CSF) [#/Vol] 117 cells/uL High 0-5 [facility] Comment on above: Order Comment: Speci men Type: CEREBROSPINAL FLUID Performed By: #### 3 4563-7, [id number], [id number] ####[facility]ORYCLIA [id number] [address] WBC Manual cnt (CSF) [#/Vol] 1 cells/uL Normal 0-5 [facility] Comment on above: Order Comment: Speci men Type: CEREBROSPINAL FLUID Performed By: #### 3 4563-7, [id number], [id number] ####[facility]ORYCLIA [id number] [address] Glucose CSF-mCncon 2 Glucose (CSF) [Mass/Vol] [...] Glucose HK (GLUC3) [package insert V 12.0 [place]ian]. [employer], [place], [place]. September 2015. 2. Michelle Moore, Loki HGarfield (2015). Chapter 7: Glucose and Lactate. F. Irina rose al.(eds.), Cerebrospinal Fluid in Clinical Neurology. [place]: [employer]. Performed By: #### 2 342-4 ####[facility]ORYCLIA [id number] [address] HEPATIC FUNCTION PNLon 06-02 Albumin [Mass/Vol] 3.2 g/dL Low 3.9-4.9 [facility] Comment on above: Order Comment: Speci men Type: BLOOD SPECIMEN Performed By: #### [place], 43991-8 ####[facility]ORYCLIA [id number] [address] ALP [Catalytic activity/Vol] 67 U/L Normal 38-113 [facility] Comment on above: Order Comment: Speci men Type: BLOOD SPECIMEN Performed By: #### [place], 70350-5 ####[facility]ORYCLIA [id number] [address] [place] ALT With P-5'-P [Catalytic activity/Vol] 16 U/L Normal 10-54 [facility] Comment on above: Order Comment: Speci men Type: BLOOD SPECIMEN Performed By: #### [place], [address]-0 ####[facility]ORYCLIA [id number] [address] AST With P-5'-P [Catalytic activity/Vol] 25 U/L Normal 14-40 [facility] Comment on above: Order Comment: Speci men Type: BLOOD SPECIMEN Performed By: #### [place], [address]-6 ####[facility]ORYCLIA [id number] [address] Bilirubin [Mass/Vol] 0.2 mg/dL Normal 0.2-1.3 [facility] Comment on above: Order Comment: Speci men Type: BLOOD SPECIMEN Performed By: #### [place] KATHIE, 71649-5 ####[facility]ORYCLIA [id number] [address] Bilirubin.conjugated [Mass/Vol] mg/dL Normal <0.2 [facility] Comment on above: Order Comment: Speci men Type: BLOOD SPECIMEN Performed By: #### [place], [address]-1 ####[facility]ORYCLIA [id number] [address] Protein [Mass/Vol] 5.8 g/dL Low 6.3-8.0 [facility] Comment on above: Order Comment: Speci men Type: BLOOD SPECIMEN Performed By: #### [place], [address]-1 ####[facility]ORYCLIA [id number] [address] MRI BRAIN WO/W IVCONon 06-02 MRI BRAIN WO/W IVCON Normal [facility] Magnesium SerPl-mCncon 06-02 Magnesium [Mass/Vol] 2.0 mg/dL Normal 1.7-2.3 [facility] Comment on above: Order Comment: Speci men Type: BLOOD SPECIMEN Performed By: #### 2 4321-2, 90220-3, 2777-1 ####[facility]ATORYCLIA [id number] [address] NT-proBNP [facility] Natriuretic peptide.B prohormone N-Terminal [Mass/Vol] 296 pg/mL High <125 [facility] Comment on above: Order Comment: Speci men Type: BLOOD SPECIMEN Performed By: #### [place], [address]-8 ####[facility]ORATORYCLIA [id number] [address] OF [facility] POTASSIUM BLDon 06-02-2021 Potassium [Moles/Vol] 3.2 mmol/L Low 3.7-5.1 [facility] Comment on above: Order Comment: Speci men Type: BLOOD SPECIMEN Performed By: #### K 1 ####[facility]ATORYCLIA [id number] [address] Phosphate [facility] 06-02 Phosphate [Mass/Vol] 2.1 mg/dL Low 2.7-4.8 [facility] Comment on above: Order Comment: Speci men Type: BLOOD SPECIMEN Performed By: #### 2 4321-2, 97958-9, 2776-05 ####[facility]ATORYCLIA [id number] [address] OF [facility] Vancomycin random [Mass/Vol] on 06-02-2021 Vancomycin [Mass/Vol] 18.8 ug/mL Normal 10.0-20.0 [facility] Comment on above: Order Comment: Speci men Type: BLOOD SPECIMEN Result Comment: Refe rence ranges and high/low indicator flags are provided as general guidelines only. The treating physician must determine appropriate target levels/dosing based on the specific clinical situation. Performed By: #### 4 091-5 ####[facility]ATORYCLIA [id number] [address] OF [facility] ALLIED HEALTHon 06-01-2021 ALLIED HEALTH Normal [facility] ALLIED HEALTH Normal [facility] ALLIED HEALTH Normal [facility] ARTERIAL BLOOD GASESon 06-01 Base excess Calc (Bld) [Moles/Vol] 1 mmol/L Normal 0-2 [facility] Comment on above: Order Comment: Speci men Type: ARTERIAL BLOOD SPECIMEN Performed By: #### A LLBG ####[facility]ATORYCLIA [id number] [address] Body temperature 97.52 [degF] Normal [facility] Comment on above: Order Comment: Speci men Type: ARTERIAL BLOOD SPECIMEN Performed By: #### A LLBG ####[facility]ORYCLIA [id number] [address] CALCIUM IONIZED, PH CORRECTED 1.13 mmol/L Normal 1.08-1.30 [facility] Comment on above: Order Comment: Speci men Type: ARTERIAL BLOOD SPECIMEN Performed By: #### A LLBG ####[facility]ATORYCLIA [id number] [address] STATES OF [facility] Calcium.ionized (BldV) [Mass/Vol] 1.12 mmol/L Normal 1.08-1.30 [facility] Comment on above: Order Comment: Speci men Type: ARTERIAL BLOOD SPECIMEN Performed By: #### A LLBG ####[facility]ATORYCLIA [id number] [address] OF [facility] Carboxyhemoglobin (BldA) [Mass fraction] 1.6 % Normal 0.0-2.0 [facility] Comment on above: Order Comment: Speci men Type: ARTERIAL BLOOD SPECIMEN Result Comment: Carb oxyhemoglobin Reference Range for Smokers: 2.0-8.0% Performed By: #### A LLBG ####[facility]ORATORYCLIA [id number] [address] CO2 (Bld) [Partial pressure] 41 mm Hg Normal 36-46 [facility] Comment on above: Order Comment: Speci men Type: ARTERIAL BLOOD SPECIMEN Performed By: #### A LLBG ####[facility]ORATORYCLIA [id number] [address] CO2 [Moles/Vol] 23.0 mmol/L Normal 22-28 [facility] Comment on above: Order Comment: Speci men Type: ARTERIAL BLOOD SPECIMEN Performed By: #### A LLBG ####[facility]ORATORYCLIA [id number] [address] CO2 adjusted to patient's actual temperature (Bld) [Partial pressure] 40 mmHg Normal 36-46 [facility] Comment on above: Order Comment: Speci men Type: ARTERIAL BLOOD SPECIMEN Performed By: #### A LLBG ####[facility]ATORYCLIA [id number] [address] FIO2 40 % Normal [facility] Comment on above: Order Comment: Speci men Type: ARTERIAL BLOOD SPECIMEN Performed By: #### A LLBG ####[facility]ORYCLIA [id number] [address] Glucose [Mass/Vol] 127 mg/dL High 60-105 [facility] Comment on above: Order Comment: Speci men Type: ARTERIAL BLOOD SPECIMEN Performed By: #### A LLBG ####[facility]ATORYCLIA [id number] [address] HCO3 (Bld) [Moles/Vol] 25 mmol/L Normal 22-26 [facility] Comment on above: Order Comment: Speci men Type: ARTERIAL BLOOD SPECIMEN Performed By: #### A LLBG ####[facility]ATORYCLIA [id number] [address] Hematocrit (Bld) [Volume fraction] 33.7 % Low 39.0-51.0 [facility] Comment on above: Order Comment: Speci men Type: ARTERIAL BLOOD SPECIMEN Performed By: #### A LLBG ####[facility]ATORYCLIA [id number] [address] [place] Hemoglobin (Bld) [Mass/Vol] 10.9 g/dL Low 13.0-17.0 [facility] Comment on above: Order Comment: Speci men Type: ARTERIAL BLOOD SPECIMEN Performed By: #### A LLBG ####[facility]ORYCLIA [id number] [address] INHALED TIDAL VOLUME (ML) 500 Normal [facility] Comment on above: Order Comment: Speci men Type: ARTERIAL BLOOD SPECIMEN Performed By: #### A LLBG ####[facility]ATORYCLIA [id number] [address] INVASIVE VENTILATOR MODE PRVC=Pressure Regulated Volume Control Normal [facility] Comment on above: Order Comment: Speci men Type: ARTERIAL BLOOD SPECIMEN Performed By: #### A LLBG ####[facility]ATORYCLIA [id number] [address] Methemoglobin (Bld) [Mass fraction] % Normal 0.0-1.5 [facility] Comment on above: Order Comment: Speci men Type: ARTERIAL BLOOD SPECIMEN Performed By: #### A LLBG ####[facility]ORYCLIA [id number] [address] [place] O2 THERAPY Ventilator Normal [facility] Comment on above: Order Comment: Speci men Type: ARTERIAL BLOOD SPECIMEN Performed By: #### A LLBG ####[facility]ORYCLIA [id number] [address] [place] Oxygen (Bld) [Partial pressure] 64 mm Hg Low 85-95 [facility] Comment on above: Order Comment: Speci men Type: ARTERIAL BLOOD SPECIMEN Performed By: #### A LLBG ####[facility]ORYCLIA [id number] [address] Oxygen adjusted to patient's actual temperature (Bld) [Partial pressure] 61.8 mmHg Low 85-95 [facility] Comment on above: Order Comment: Speci men Type: ARTERIAL BLOOD SPECIMEN Performed By: #### A LLBG ####[facility]ORYCLIA [id number] [place] [address] OXYGEN SATURATION, ARTERIAL 94 % Low 95-98 [facility] Comment on above: Order Comment: Speci men Type: ARTERIAL BLOOD SPECIMEN Performed By: #### A LLBG ####[facility]ORYCLIA [id number] [address] Oxyhemoglobin (BldA) [Mass fraction] 92 % Low 95-98 [facility] Comment on above: Order Comment: Speci men Type: ARTERIAL BLOOD SPECIMEN Performed By: #### A LLBG ####[facility]ORYCLIA [id number] [address] PEEP/CPAP 5 cmH2O Normal [facility] Comment on above: Order Comment: Speci men Type: ARTERIAL BLOOD SPECIMEN Performed By: #### A LLBG ####[facility] LABORATORYCLIA [id number] [address] pH (Bld) 7.40 [pH] Normal 7.35-7.45 [facility] Comment on above: Order Comment: Speci men Type: ARTERIAL BLOOD SPECIMEN Performed By: #### A LLBG ####[facility] LABORATORYCLIA [id number] [address] pH adjusted to patient's actual temperature (Bld) 7.41 Normal 7.35-7.45 [facility] Comment on above: Order Comment: Speci men Type: ARTERIAL BLOOD SPECIMEN Performed By: #### A LLBG ####[facility]ATORYCLIA [id number] [address] Potassium [Moles/Vol] 3.1 mmol/L Low 3.5-5.0 [facility] Comment on above: Order Comment: Speci men Type: ARTERIAL BLOOD SPECIMEN Performed By: #### A LLBG ####[facility]ORYCLIA [id number] [address] SET VENTILATOR RESPIRATORY RATE (BPM) 18 BPM Normal [facility] Comment on above: Order Comment: Speci men Type: ARTERIAL BLOOD SPECIMEN Performed By: #### A LLBG ####[facility]ORYCLIA [id number] [address] Sodium [Moles/Vol] 141 mmol/L Normal 136-144 [facility] Comment on above: Order Comment: Speci men Type: ARTERIAL BLOOD SPECIMEN Performed By: #### A LLBG ####[facility]ORYCLIA [id number] [address] BASE DEFICIT, ARTERIAL -1.0 mmol/L Normal -2-0 [facility] Comment on above: Order Comment: Speci men Type: ARTERIAL BLOOD SPECIMEN Performed By: #### A LLBG ####[facility] LABORATORYCLIA [id number] [address] Body temperature 98.24 [degF] Normal [facility] Comment on above: Order Comment: Speci men Type: ARTERIAL BLOOD SPECIMEN Performed By: #### A LLBG ####[facility] LABORATORYCLIA [id number] [address] CALCIUM IONIZED, PH CORRECTED 1.08 mmol/L Normal 1.08-1.30 [facility] Comment on above: Order Comment: Speci men Type: ARTERIAL BLOOD SPECIMEN Performed By: #### A LLBG ####[facility]ATORYCLIA [id number] [address] Calcium.ionized (BldV) [Mass/Vol] 1.15 mmol/L Normal 1.08-1.30 [facility] Comment on above: Order Comment: Speci men Type: ARTERIAL BLOOD SPECIMEN Performed By: #### A LLBG ####[facility]ORYCLIA [id number] [address] Carboxyhemoglobin (BldA) [Mass fraction] 1.4 % Normal 0.0-2.0 [facility] Comment on above: Order Comment: Speci men Type: ARTERIAL BLOOD SPECIMEN Result Comment: Carb oxyhemoglobin Reference Range for Smokers: 2.0-8.0% Performed By: #### A LLBG ####[facility]ATORYCLIA [id number] [place], [place] [id number] [place] [address] CO2 (Bld) [Partial pressure] 59 mm Hg High 36-46 [facility] Comment on above: Order Comment: Speci men Type: ARTERIAL BLOOD SPECIMEN Performed By: #### A LLBG ####[facility]ATORYCLIA [id number] [place], [place] [address] [place] [address] [place] CO2 [Moles/Vol] 24.5 mmol/L Normal 22-28 [facility] Comment on above: Order Comment: Speci men Type: ARTERIAL BLOOD SPECIMEN Performed By: #### A LLBG ####[facility]ORYCLIA [id number] [address] CO2 adjusted to patient's actual temperature (Bld) [Partial pressure] 58 mmHg High 36-46 [facility] Comment on above: Order Comment: Speci men Type: ARTERIAL BLOOD SPECIMEN Performed By: #### A LLBG ####[facility]ORYCLIA [id number] [address] [place] FIO2 40 % Normal [facility] Comment on above: Order Comment: Speci men Type: ARTERIAL BLOOD SPECIMEN Performed By: #### A LLBG ####[facility]ORYCLIA [id number] [address] Glucose [Mass/Vol] 128 mg/dL High 60-105 [facility] Comment on above: Order Comment: Speci men Type: ARTERIAL BLOOD SPECIMEN Performed By: #### A LLBG ####[facility]ORYCLIA [id number] [address] HCO3 (Bld) [Moles/Vol] 26 mmol/L Normal 22-26 [facility] Comment on above: Order Comment: Speci men Type: ARTERIAL BLOOD SPECIMEN Performed By: #### A LLBG ####[facility]ATORYCLIA [id number] [address] [place] Hematocrit (Bld) [Volume fraction] 35.6 % Low 39.0-51.0 [facility] Comment on above: Order Comment: Speci men Type: ARTERIAL BLOOD SPECIMEN Performed By: #### A LLBG ####[facility]ORYCLIA [id number] [address] Hemoglobin (Bld) [Mass/Vol] 11.5 g/dL Low 13.0-17.0 [facility] Comment on above: Order Comment: Speci men Type: ARTERIAL BLOOD SPECIMEN Performed By: #### A LLBG ####[facility]ATORYCLIA [id number] [address] [place] INHALED TIDAL VOLUME (ML) 500 Normal [facility] Comment on above: Order Comment: Speci men Type: ARTERIAL BLOOD SPECIMEN Performed By: #### A LLBG ####[facility]ORYCLIA [id number] [address] INVASIVE VENTILATOR MODE PRVC=Pressure Regulated Volume Control [facility] Comment on above: Order Comment: Speci men Type: ARTERIAL BLOOD SPECIMEN Performed By: #### A LLBG ####[facility]ATORYCLIA [id number] [address] OF [facility] Methemoglobin (Bld) [Mass fraction] % Normal 0.0-1.5 [facility] Comment on above: Order Comment: Speci men Type: ARTERIAL BLOOD SPECIMEN Performed By: #### A LLBG ####[facility]ORYCLIA [id number] [address] O2 THERAPY Ventilator Normal [facility] Comment on above: Order Comment: Speci men Type: ARTERIAL BLOOD SPECIMEN Performed By: #### A LLBG ####[facility]ORYCLIA [id number] [address] Oxygen (Bld) [Partial pressure] 88 mm Hg Normal 85-95 [facility] Comment on above: Order Comment: Speci men Type: ARTERIAL BLOOD SPECIMEN Performed By: #### A LLBG ####[facility]ORYCLIA [id number] [address] Oxygen adjusted to patient's actual temperature (Bld) [Partial pressure] 86.5 mmHg Normal 85-95 [facility] Comment on above: Order Comment: Speci men Type: ARTERIAL BLOOD SPECIMEN Performed By: #### A LLBG ####[facility]ORYCLIA [id number] [address] OXYGEN SATURATION, ARTERIAL 95 % Normal 95-98 [facility] Comment on above: Order Comment: Speci men Type: ARTERIAL BLOOD SPECIMEN Performed By: #### A LLBG ####[facility]ORYCLIA [id number] [address] Oxyhemoglobin (BldA) [Mass fraction] 93 % Low 95-98 [facility] Comment on above: Order Comment: Speci men Type: ARTERIAL BLOOD SPECIMEN Performed By: #### A LLBG ####[facility]ORYCLIA [id number] [address] PEEP/CPAP 5 cmH2O Normal [facility] Comment on above: Order Comment: Speci men Type: ARTERIAL BLOOD SPECIMEN Performed By: #### A LLBG ####[facility]ORYCLIA [id number] [address] OF [facility] pH (Bld) 7.27 [pH] Low 7.35-7.45 [facility] Comment on above: Order Comment: Speci men Type: ARTERIAL BLOOD SPECIMEN Performed By: #### A LLBG ####[facility]ORYCLIA [id number] [address] pH adjusted to patient's actual temperature (Bld) 7.28 Low 7.35-7.45 [facility] Comment on above: Order Comment: Speci men Type: ARTERIAL BLOOD SPECIMEN Performed By: #### A LLBG ####[facility]ORYCLIA [id number] [address] Potassium [Moles/Vol] 3.3 mmol/L Low 3.5-5.0 [facility] Comment on above: Order Comment: Speci men Type: ARTERIAL BLOOD SPECIMEN Performed By: #### A LLBG ####[facility]ORATORYCLIA [id number] [address] SET VENTILATOR RESPIRATORY RATE (BPM) 14 BPM Normal [facility] Comment on above: Order Comment: Speci men Type: ARTERIAL BLOOD SPECIMEN Performed By: #### A LLBG ####[facility]ATORYCLIA [id number] [address] Sodium [Moles/Vol] 141 mmol/L Normal 136-144 [facility] Comment on above: Order Comment: Speci men Type: ARTERIAL BLOOD SPECIMEN Performed By: #### A LLBG ####[facility]ORATORYCLIA [id number] [address] Bacteria CSF Culton 06-01-19 22 Bacteria identified Cx Nom (CSF) CULTURE, CSF: No growth 14 days GRAM STAIN: No organisms seen Rare Polymorphonuclear leukocytes Moderate Red Blood Cells Gram stain performed on cytospun specimen. Normal [facility] Comment on above: Performed By: #### 6 06-4 ####[facility]ORATORYCLIA [id number] [address] Bacteria Spec Resp Culton Bacteria identified Respiratory culture Nom (Unsp spec) CULTURE, RESPIRATORY: No growth 2 days GRAM STAIN: No organisms seen No Polymorphonuclear Leukocytes Normal [facility] Comment on above: Performed By: #### 3 2355-0 ####[facility]ATORYCLIA [id number] [address] Basic metabolic 2000 panelon 06-01-2021 Anion gap [Moles/Vol] 8 mmol/L Low 9-18 [facility] Comment on above: Order Comment: Speci men Type: BLOOD SPECIMEN Performed By: #### 2 4321-2, 03090-5, 2777-1 ####[facility]ORYCLIA [id number] [address] [place] Calcium [Mass/Vol] 7.8 mg/dL Low 8.5-10.2 [facility] Comment on above: Order Comment: Speci men Type: BLOOD SPECIMEN Performed By: #### 2 4321-2, , 2776-05 ####[facility]ORATORYCLIA [id number] [address] STATES [facility] Chloride [Moles/Vol] 109 mmol/L High 97-105 [facility] Comment on above: Order Comment: Speci men Type: BLOOD SPECIMEN Performed By: #### 2 4321-2, , 2776-05 ####[facility]ORATORYCLIA [id number] [address] [place] CO2 [Moles/Vol] 26 mmol/L Normal 22-30 [facility] Comment on above: Order Comment: Speci men Type: BLOOD SPECIMEN Performed By: #### 2 4321-2, , 2776-05 ####[facility]ORATORYCLIA [id number] [address] STATES OF [facility] Creatinine [Mass/Vol] 0.82 mg/dL Normal 0.73-1.22 [facility] Comment on above: Order Comment: Speci men Type: BLOOD SPECIMEN Performed By: #### 2 4321-2, , 2776-05 ####[facility]ORATORYCLIA [id number] [address] [place] GFR/1.73 sq [...] By: #### 2 4320-2, , 2776-05 ####[facility]ORATORYCLIA [id number] [place] [address] [place] Glucose [Mass/Vol] 105 mg/dL High 74-99 [facility] Comment on above: Order Comment: Speci men Type: BLOOD SPECIMEN Result Comment: The [place] [employer] (ADA) provides guidance for cutoff [...] Standards of Medical Care in Diabetes 2016, [place] [employer]. Diabetes Care. 2016.39(Suppl 1). Performed By: #### 2 4320-2, , 2776-05 ####[facility]ORATORYCLIA [id number] [place] [address] [place] Potassium [Moles/Vol] 3.8 mmol/L Normal 3.7-5.1 [facility] Comment on above: Order Comment: Speci men Type: BLOOD SPECIMEN Performed By: #### 2 4320-2, , 2776-05 ####[facility]ORATORYCLIA [id number] [place] [address] [place] Sodium [Moles/Vol] 143 mmol/L Normal 136-144 [facility] Comment on above: Order Comment: Speci men Type: BLOOD SPECIMEN Performed By: #### 2 4320-2, , 2776-05 ####[facility]ATORYCLIA [id number] [place] [address] [place] Urea nitrogen [Mass/Vol] 15 mg/dL Normal 9-24 [facility] Comment on above: Order Comment: Speci men Type: BLOOD SPECIMEN Performed By: #### 2 4321-2, 38549-1, 2777-1 ####[facility]ATORYCLIA [id number] [address] CBC panel Auto (Bld)on 06-01 Erythrocyte distribution width (RBC) [Ratio] 15.4 % High 11.5-15.0 [facility] Comment on above: Order Comment: Speci men Type: BLOOD SPECIMEN Performed By: #### 5 8410-2 ####[facility]ATORYCLIA [id number] [address] Hematocrit (Bld) [Volume fraction] 38.4 % Low 39.0-51.0 [facility] Comment on above: Order Comment: Speci men Type: BLOOD SPECIMEN Performed By: #### 5 8410-2 ####[facility]ATORYCLIA [id number] [address] Hemoglobin (Bld) [Mass/Vol] 11.1 g/dL Low 13.0-17.0 [facility] Comment on above: Order Comment: Speci men Type: BLOOD SPECIMEN Performed By: #### 5 8410-2 ####[facility]ATORYCLIA [id number] [address] MCH (RBC) [Entitic mass] 26.9 pg Normal 26.0-34.0 [facility] Comment on above: Order Comment: Speci men Type: BLOOD SPECIMEN Performed By: #### 5 8410-2 ####[facility]ATORYCLIA [id number] [address] MCHC (RBC) [Mass/Vol] 28.9 g/dL Low 30.5-36.0 [facility] Comment on above: Order Comment: Speci men Type: BLOOD SPECIMEN Performed By: #### 5 8410-2 ####[facility]ATORYCLIA [id number] [address] MCV (RBC) [Entitic vol] 93.2 fL Normal 80.0-100.0 [facility] Comment on above: Order Comment: Speci men Type: BLOOD SPECIMEN Performed By: #### 5 8410-2 ####[facility]ATORYCLIA [id number] [address] Nucleated RBC (Bld) [#/Vol] 10*3/uL Normal <0.01 [facility] Comment on above: Order Comment: Speci men Type: BLOOD SPECIMEN Performed By: #### 5 8410-2 ####[facility]ATORYCLIA [id number] [address] Platelet mean volume (Bld) [Entitic vol] 10.2 fL Normal 9.0-12.7 [facility] Comment on above: Order Comment: Speci men Type: BLOOD SPECIMEN Performed By: #### 5 8410-2 ####[facility]ATORYCLIA [id number] [address] Platelets (Bld) [#/Vol] 231 10*3/uL Normal 150-400 [facility] Comment on above: Order Comment: Speci men Type: BLOOD SPECIMEN Performed By: #### 5 8410-2 ####[facility]ORYCLIA [id number] [address] RBC (Bld) [#/Vol] 4.12 10*6/uL Low 4.20-6.00 [facility] Comment on above: Order Comment: Speci men Type: BLOOD SPECIMEN Performed By: #### 5 8410-2 ####[facility]ORATORYCLIA [id number] [address] OF [facility] WBC (Bld) [#/Vol] 10.99 10*3/uL Normal 3.70-11.00 [facility] Comment on above: Order Comment: Speci men Type: BLOOD SPECIMEN Performed By: #### 5 8410-2 ####[facility]ORATORYCLIA [id number] [address] CONSULT PROGon 06-01-2021 CONSULT PROG Normal [facility] CSF MANUAL DIFFon 06-01-2021 DIF TTL, CSF 100 cells counted Normal [facility] Comment on above: Order Comment: Speci men Type: CEREBROSPINAL FLUID Performed By: #### 3 4563-7, [id number] ####[facility]ATORYCLIA [id number] [place], [place] [address] [place] [address] LYMPH%, CSF 11 % Low 50-90 [facility] Comment on above: Order Comment: Speci men Type: CEREBROSPINAL FLUID Performed By: #### 3 4563-7, [id number] ####[facility]ORYCLIA [id number] [address] OF [facility] MONO%, CSF 10 % Normal 10-50 [facility] Comment on above: Order Comment: Speci men Type: CEREBROSPINAL FLUID Performed By: #### 3 4563-7, [id number] ####[facility]ORYCLIA [id number] [address] [place] NEUT%, CSF 79 % High 0-3 [facility] Comment on above: Order Comment: Speci men Type: CEREBROSPINAL FLUID Performed By: #### 3 4563-7, [id number] ####[facility]ORYCLIA [id number] [address] OF [facility] CT BRAIN WO IVCONon 06-01-19 CT BRAIN WO IVCON Normal [facility] Cell count panel (CSF)on Clarity (CSF) Clear Normal Clear [facility] Comment on above: Order Comment: Speci men Type: CEREBROSPINAL FLUID Performed By: #### 3 4563-7, [id number] ####[facility]ORYCLIA [id number] [address] Clarity (Unsp spec) Not Indicated Normal Clear [facility] Comment on above: Order Comment: Speci men Type: CEREBROSPINAL FLUID Performed By: #### 3 4563-7, [id number] ####[facility]ORYCLIA [id number] [address] Color (CSF) Colorless Normal Colorless [facility] Comment on above: Order Comment: Speci men Type: CEREBROSPINAL FLUID Performed By: #### 3 4563-7, [id number] ####[facility]ATORYCLIA [id number] [address] Color (Spun CSF) Not Indicated Normal Colorless [facility] Comment on above: Order Comment: Speci men Type: CEREBROSPINAL FLUID Performed By: #### 3 4563-7, [id number] ####[facility]ORATORYCLIA [id number] [address] CSF TUBE NUMBER Sterile Container Normal [facility] Comment on above: Order Comment: Speci men Type: CEREBROSPINAL FLUID Performed By: #### 3 4563-7, [id number] ####[facility]ORATORYCLIA [id number] [address] RBC Manual cnt (CSF) [#/Vol] 171 cells/uL High 0-5 [facility] Comment on above: Order Comment: Speci men Type: CEREBROSPINAL FLUID Performed By: #### 3 4563-7, [id number] ####[facility]ATORYCLIA [id number] [address] WBC Manual cnt (CSF) [#/Vol] 5 cells/uL Normal 0-5 [facility] Comment on above: Order Comment: Speci men Type: CEREBROSPINAL FLUID Performed By: #### 3 4563-7, [id number] ####[facility]ATORYCLIA [id number] [address] [place] FUNGAL CULTUREon 06-01-2021 FUNGAL CULTURE CULTURE, FUNGAL: No Fungus isolated after 28 days Normal [facility] Comment on above: Performed By: #### F CUL ####[facility]ORATORYCLIA [id number] [address] [place] Glucose CSF-mCncon Glucose (CSF) [...] Glucose HK (GLUC3) [package insert V 12.0 Estonian]. [employer], [place], [place]. September 2015. 2. Michelle Moore, Michelle Manjarrez (2015). Chapter 7: Glucose and Lactate. F. Irina rose al.(eds.), Cerebrospinal Fluid in Clinical Neurology. [place]: [employer]. Performed By: #### 2 342-4, 2880-3 ####[facility] LABORATORYCLIA [id number] [address] [place] HERPES SIMPLEX CSFon 022 HERPES SIMPLEX CSF HSV PCR SPEC SOURCE: Cerebrospinal Fluid HSV-1: Negative for Herpes Simplex Virus Type 1 by PCR HSV-2: Negative for Herpes Simplex Virus Type 2 by PCR Normal [facility] Comment on above: Performed By: #### H [facility] ####[facility]FER[facility] LABCLIA [id number] [id number] [address] [place] Lactate (Bld) [Moles/Vol]on 06-01-2021 Lactate [Moles/Vol] 0.5 mmol/L Normal 0.5-2.2 [facility] Comment on above: Order Comment: Speci men Type: BLOOD SPECIMEN Performed By: #### 3 2693-4 ####[facility]ORATORYCLIA [id number] [address] [place] MENINGITIS ENCEPHALITIS BIOF IREon 06-01-2021 MENINGITIS ENCEPHALITIS BIOFIRE Negative Normal [facility] Comment on above: Order Comment: Speci men Type: CEREBROSPINAL FLUID Performed By: #### M GEBF ####[facility]ITALCLIA [id number] [address] Magnesium SerPl-mCncon 06-01 Magnesium [Mass/Vol] 2.2 mg/dL Normal 1.7-2.3 [facility] Comment on above: Order Comment: Speci men Type: BLOOD SPECIMEN Performed By: #### 2 4321-2, 15369-5, 2776- ####[facility]ORATORYCLIA [id number] [address] Microorganism Spec Culton Microorganism identified Cx Nom (Unsp spec) CULTURE, AFB: No Acid Fast Bacilli isolated after 42 days AFB STAIN: No acid fast bacilli seen by flurochrome stain Normal [facility] Comment on above: Performed By: #### 1 1475-1 ####[facility]ORATORYCLIA [id number] [address] PROCALCITONIN (LAB)on 2021 Procalcitonin [Mass/Vol] 0.08 ng/mL Normal <0.09 [facility] Comment on above: Order Comment: Speci men Type: BLOOD SPECIMEN Result Comment: For a guided interpretation of test results, please visit the [facility] in Procalcitonin Calculator, [email or web address]. Performed By: #### P ROCAL ####[facility]ORATORYCLIA [id number] [address] Phosphate SerPl-ncon 06-01 Phosphate [Mass/Vol] 3.5 mg/dL Normal 2.7-4.8 [facility] Comment on above: Order Comment: Speci men Type: BLOOD SPECIMEN Performed By: #### 2 4321-2, 97144-2, 2776-05 ####[facility]ATORYCLIA [id number] [address] [place] Prot CSF-mCncon 06-01-2021 Protein (CSF) [Mass/Vol] 52 mg/dL High 15-45 [facility] Comment on above: Order Comment: Speci men Type: CEREBROSPINAL FLUID Performed By: #### 2 342-4, 2880-3 ####[facility]ATORYCLIA [id number] [address] OF [place] Vancomycin random [Mass/Vol] on [...] Performed By: #### 4 091-5 ####[facility]ORATORYCLIA [id number] [address] STATES OF [facility] XR CHEST 1V FRONTALon 2021 XR CHEST 1V FRONTAL Normal [facility] XR CHEST 1V FRONTAL Normal [facility] XR NECK SOFT TISSUE 2V AP/LA Ton 06-01-2021 XR NECK SOFT TISSUE 2V AP/LAT Normal [facility] XR SKULL 2V AP/LATon 022 XR SKULL 2V AP/LAT Normal [facility] ALLIED HEALTHon 05-31-2021 ALLIED HEALTH HNO ID: [id number] Author: Christina Lynne RT(R) Service: Radiology Author Type: Technologist Type: Allied Health Filed: 05/31/2021 5:48 PM Note Text: MRI tomorrow per RN. Normal [facility] HEALTH Normal [facility] ALLIED HEALTH Normal [facility] HEALTH Normal [facility] ANES POSTPROC [...] Performed By: #### 6 00-7 ####[facility]ORATORYCLIA [id number] [address] OF [facility] Bacteria CSF Culton 05-31-19 22 Bacteria identified Cx Nom (CSF) CULTURE, CSF: No growth 14 days GRAM STAIN: No organisms seen Rare Polymorphonuclear leukocytes Rare Red Blood Cells Gram stain performed on cytospun specimen. Normal [facility] Comment on above: Performed By: #### 6 06-4 ####[facility] LABORATORYCLIA [id number] [address] OF [facility] Basic metabolic 2000 panelon 05-31-2021 Anion gap [Moles/Vol] 9 mmol/L Normal 9-18 [facility] Comment on above: Order Comment: Speci men Type: BLOOD SPECIMEN Performed By: #### 2 777-1, 20206-1, ####[facility]ORYCLIA [id number] [address] [place] Calcium [Mass/Vol] 8.2 mg/dL Low 8.5-10.2 [facility] Comment on above: Order Comment: Speci men Type: BLOOD SPECIMEN Performed By: #### 2 777-1, 29765-2, ####[facility]ATORYCLIA [id number] [address] STATES OF [facility] Chloride [Moles/Vol] 110 mmol/L High 97-105 [facility] Comment on above: Order Comment: Speci men Type: BLOOD SPECIMEN Performed By: #### 2 777-1, , ####[facility]ORYCLIA [id number] [address] [place] CO2 [Moles/Vol] 27 mmol/L Normal 22-30 [facility] Comment on above: Order Comment: Speci men Type: BLOOD SPECIMEN Performed By: #### 2 777-1, 02366-9, ####[facility]ATORYCLIA [id number] [address] [place] Creatinine [Mass/Vol] 0.85 mg/dL Normal 0.73-1.22 [facility] Comment on above: Order Comment: Speci men Type: BLOOD SPECIMEN Performed By: #### 2 777-1, 86284-5, ####[facility]ATORYCLIA [id number] [place] [address] [place] GFR/1.73 sq M.predicted [...] actual GFR. Performed By: #### 2 777-1, 59538-4, 74691-3 ####[facility]ORATORYCLIA [id number] [place] [address] [place] Glucose [Mass/Vol] 111 mg/dL High 74-99 [facility] Comment on above: Order Comment: Speci men Type: BLOOD SPECIMEN Result Comment: The [place] [employer] (ADA) provides guidance for cutoff [...] Standards of Medical Care in Diabetes 2016, [place] [employer]. Diabetes Care. 2016.39(Suppl 1). Performed By: #### 2 777-1, 98330-2, 31981-6 ####[facility]ORATORYCLIA [id number] [place] [address] [place] Potassium [Moles/Vol] 3.7 mmol/L Normal 3.7-5.1 [facility] Comment on above: Order Comment: Speci men Type: BLOOD SPECIMEN Performed By: #### 2 777-1, 89365-6, ####[facility]ORATORYCLIA [id number] [address] Sodium [Moles/Vol] 146 mmol/L High 136-144 [facility] Comment on above: Order Comment: Speci men Type: BLOOD SPECIMEN Performed By: #### 2 777-1, 68868-0, ####[facility]ATORYCLIA [id number] [address] STATES OF [facility] Urea nitrogen [Mass/Vol] 16 mg/dL Normal 9-24 [facility] Comment on above: Order Comment: Speci men Type: BLOOD SPECIMEN Performed By: #### 2 777-1, 37921-4, ####[facility]ORATORYCLIA [id number] [address] [place] CASE MGT INIT ASSESon 2021 CASE MGT INIT ASSES Normal [facility] CBC W Auto Differential pane l (Bld)on 05-31-2021 Basophils (Bld) [#/Vol] 0.04 10*3/uL Normal <0.11 [facility] Comment on above: Order Comment: Speci men Type: BLOOD SPECIMEN Performed By: #### 5 7021-8 ####[facility]ORATORYCLIA [id number] [address] Basophils/100 WBC (Bld) 0.5 % Normal [facility] Comment on above: Order Comment: Speci men Type: BLOOD SPECIMEN Performed By: #### 5 7021-8 ####[facility]ORATORYCLIA [id number] [address] Differential cell count method Nom (Bld) Auto Normal [facility] Comment on above: Order Comment: Speci men Type: BLOOD SPECIMEN Performed By: #### 5 7021-8 ####[facility]ORATORYCLIA [id number] [address] Eosinophils (Bld) [#/Vol] 0.27 10*3/uL Normal <0.46 [facility] Comment on above: Order Comment: Speci men Type: BLOOD SPECIMEN Performed By: #### 5 7021-8 ####[facility]ATORYCLIA [id number] [address] Eosinophils/100 WBC (Bld) 3.3 % Normal [facility] Comment on above: Order Comment: Speci men Type: BLOOD SPECIMEN Performed By: #### 5 7021-8 ####[facility]ORATORYCLIA [id number] [address] Erythrocyte distribution width (RBC) [Ratio] 15.4 % High 11.5-15.0 [facility] Comment on above: Order Comment: Speci men Type: BLOOD SPECIMEN Performed By: #### 5 7021-8 ####[facility]ORATORYCLIA [id number] [address] Hematocrit (Bld) [Volume fraction] 37.9 % Low 39.0-51.0 [facility] Comment on above: Order Comment: Speci men Type: BLOOD SPECIMEN Performed By: #### 5 7021-8 ####[facility]ATORYCLIA [id number] [address] Hemoglobin (Bld) [Mass/Vol] 11.5 g/dL Low 13.0-17.0 [facility] Comment on above: Order Comment: Speci men Type: BLOOD SPECIMEN Performed By: #### 5 7021-8 ####[facility]ORATORYCLIA [id number] [address] IMMATURE GRAN % 0.4 % Normal [facility] Comment on above: Order Comment: Speci men Type: BLOOD SPECIMEN Performed By: #### 5 7021-8 ####[facility]ORATORYCLIA [id number] [address] IMMATURE GRAN ABS 0.03 k/uL Normal <0.10 [facility] Comment on above: Order Comment: Speci men Type: BLOOD SPECIMEN Performed By: #### 5 7021-8 ####[facility]ORATORYCLIA [id number] [address] Lymphocytes (Bld) [#/Vol] 1.90 10*3/uL Normal 1.00-4.00 [facility] Comment on above: Order Comment: Speci men Type: BLOOD SPECIMEN Performed By: #### 5 7021-8 ####[facility]ORATORYCLIA [id number] [address] Lymphocytes/100 WBC (Bld) 23.0 % Normal [facility] Comment on above: Order Comment: Speci men Type: BLOOD SPECIMEN Performed By: #### 5 7021-8 ####[facility]ORATORYCLIA [id number] [address] MCH (RBC) [Entitic mass] 28.0 pg Normal 26.0-34.0 [facility] Comment on above: Order Comment: Speci men Type: BLOOD SPECIMEN Performed By: #### 5 7021-8 ####[facility]ORATORYCLIA [id number] [address] MCHC (RBC) [Mass/Vol] 30.3 g/dL Low 30.5-36.0 [facility] Comment on above: Order Comment: Speci men Type: BLOOD SPECIMEN Performed By: #### 5 7021-8 ####[facility]ORATORYCLIA [id number] [address] MCV (RBC) [Entitic vol] 92.4 fL Normal 80.0-100.0 [facility] Comment on above: Order Comment: Speci men Type: BLOOD SPECIMEN Performed By: #### 5 7021-8 ####[facility]ATORYCLIA [id number] [address] Monocytes (Bld) [#/Vol] 0.60 10*3/uL Normal <0.87 [facility] Comment on above: Order Comment: Speci men Type: BLOOD SPECIMEN Performed By: #### 5 7021-8 ####[facility]ATORYCLIA [id number] [address] Monocytes/100 WBC (Bld) 7.3 % Normal [facility] Comment on above: Order Comment: Speci men Type: BLOOD SPECIMEN Performed By: #### 5 7021-8 ####[facility]ATORYCLIA [id number] [address] Neutrophils (Bld) [#/Vol] 5.41 10*3/uL Normal 1.45-7.50 [facility] Comment on above: Order Comment: Speci men Type: BLOOD SPECIMEN Performed By: #### 5 7021-8 ####[facility] LABORATORYCLIA [id number] [address] Neutrophils/100 WBC (Bld) 65.5 % Normal [facility] Comment on above: Order Comment: Speci men Type: BLOOD SPECIMEN Performed By: #### 5 7021-8 ####[facility]ATORYCLIA [id number] [address] Nucleated RBC (Bld) [#/Vol] 10*3/uL Normal <0.01 [facility] Comment on above: Order Comment: Speci men Type: BLOOD SPECIMEN Performed By: #### 5 7021-8 ####[facility]ATORYCLIA [id number] [address] Nucleated RBC/100 WBC (Bld) [Ratio] 0.0 /100 WBC Normal 0.0 [facility] Comment on above: Order Comment: Speci men Type: BLOOD SPECIMEN Performed By: #### 5 7021-8 ####[facility]ORYCLIA [id number] [address] Platelet mean volume (Bld) [Entitic vol] 9.8 fL Normal 9.0-12.7 [facility] Comment on above: Order Comment: Speci men Type: BLOOD SPECIMEN Performed By: #### 5 7021-8 ####[facility]ATORYCLIA [id number] [address] Platelets (Bld) [#/Vol] 251 10*3/uL Normal 150-400 [facility] Comment on above: Order Comment: Speci men Type: BLOOD SPECIMEN Performed By: #### 5 7021-8 ####[facility]ORATORYCLIA [id number] [address] RBC (Bld) [#/Vol] 4.10 10*6/uL Low 4.20-6.00 [facility] Comment on above: Order Comment: Speci men Type: BLOOD SPECIMEN Performed By: #### 5 7021-8 ####[facility]ATORYCLIA [id number] [address] WBC (Bld) [#/Vol] 8.25 10*3/uL Normal 3.70-11.00 [facility] Comment on above: Order Comment: Speci men Type: BLOOD SPECIMEN Performed By: #### 5 7021-8 ####[facility]ORATORYCLIA [id number] [address] CONSULTon 05-31-2021 CONSULT Normal [facility] CONSULT Normal [facility] CONSULT Normal [facility] CT BRAIN WO IVCONon 05-31-[address] BRAIN WO IVCON Normal [facility] CT BRAIN WO IVCON Normal [facility] CT CHEST WO IVCONon 05-31-[address] CHEST WO IVCON Normal [facility] [...] By: #### 2 143-6, 3016-3 ####[facility]ORATORYCLIA [id number] [address] Cryptoc Ag Spec Ql LAon 05-08 Cryptococcus sp Ag LA Ql (Unsp spec) Negative Normal [facility] Comment on above: Performed By: #### 4 3228-6 ####[facility]ORATORYCLIA [id number] [address] [place] HISTORY PHYSICALon 2 HISTORY PHYSICAL Normal [facility] Magnesium SerPl-ncon 05-31 Magnesium [Mass/Vol] 2.2 mg/dL Normal 1.7-2.3 [facility] Comment on above: Order Comment: Speci men Type: BLOOD SPECIMEN Performed By: #### 2 777-1, 12841-9, 88447-4 ####[facility]ORATORYCLIA [id number] [address] [place] NURSING PROGon 05-31-2021 NURSING PROG Normal [facility] NUTRITIONon 05-31-2021 NUTRITION Normal [facility] OPERATIVE NOon 05-31-2021 OPERATIVE NO Normal [facility] Phosphate SerPl-mCncon 05-31 Phosphate [Mass/Vol] 3.3 mg/dL Normal 2.7-4.8 [facility] Comment on above: Order Comment: Speci men Type: BLOOD SPECIMEN Performed By: #### 2 777-1, 54287-7, ####[facility]ORATORYCLIA [id number] [address] STAPH AUREUS PCRon 2 S. aureus and MRSA panel MEGAN+probe (Nose) Normal Negative [facility] Comment on above: Order Comment: Speci men Type: SWAB OF INTERNAL NOSE Result Comment: Nega tive for Staphylococcus aureus by PCR.Negative for MRSA by PCR Performed By: #### S APCR ####[facility]ORATORYCLIA [id number] [address] [place] TSH SerPl-aCncon 05-31-2021 TSH Qn 0.829 m[IU]/L Normal 0.270-4.200 [facility] Comment on above: Order Comment: Speci men Type: BLOOD SPECIMEN Performed By: #### 2 143-6, 3016-3 ####[facility]ORATORYCLIA [id number] [address] XR CHEST 1V FRONTALon 2021 XR CHEST 1V FRONTAL Normal [facility] XR CHEST 1V FRONTAL Normal [facility] Blood Cultureon 05-30-2021 Bacteria identified Cx Nom (Bld) Culture Result - No growth 5 days Normal [facility] Comment on above: Performed By: #### C AD #### [facility] [address] [place] [address] Bacteria identified Cx Nom (Bld) Sp. Request/Comment: - 8.2MLS Culture Result - No growth 5 days Normal [facility] Comment on above: Performed By: #### C AD #### [facility] [address] [place] [address] C-Reactive Proteinon 022 C-Reactive Protein 1.7 mg/dL High <0.9 [facility] Comment on above: Performed By: #### C RP ####[facility] [address] [place] [phone] CNDSon 05-30-2021 [facility] HNO ID: [id number] Author: Columba Carroll PA-C Service: Hospital Medicine Author Type: Physician Marine Consultant Type: Discharge Summary Filed: 05/30/2021 12:49 PM Note Text: ----- Attestation signed by Ayaka Menjivar MD at 06/01/2021 12:53 PM Attending Note I have personally reviewed the PA/CAN REFORMING 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 Agree with above assessment and plan. [...] Team: Attending Provider: Ayaka Menjivar MD Physician Marine Consultant: Columba Carroll PA-C Consulting: Lilo Mendoza MD [...] consulted. Neurology suggested empiric abx coverage for CONTACT LENS TECHNICIAN infection Rocephin and Vancomycin was started. Tele-neuro also suggested an MRI brain be obtained prior to LP to check GENERAL PARTNER shunt and decrease risk of herniation in neurosurgery capable facility. Transfer to [facility] [place] [facility] requested. Sepsis lactate was 1.3. ABG showed pO2 67.8, placed patient on 2L NC.Follow B1, B12, and RPR pending. Transitions of Care Critical Issues: - patient transferred for [facility] [place] [facility] for management of possible CONTACT LENS TECHNICIAN infection and herniation. LABS AND PROCEDURES PENDING [...] intravenously q 1 (more content not included)... [facility] CONSULTon 05-30-2021 CONSULT HNO ID: [id number] Author: Juan Carlos Mckenzie MD Service: Infectious [...] with counting from the craniocervical junction. Rn Chemical Dependency: [place] Transcribe Date/Time: May 29 2021 8:59P Dictated by : CARLOS YOUNGER MD This examination was interpreted and the report reviewed and electronically signed by: CARLOS YOUNGER MD on May 29 2021 9:14PM EST ? CT CERVICAL SPINE WO (more content not included)... Normal [facility] CONSULT HNO ID: [id number] Author: Lilo Mendoza MD Service: Neurology General Author Type: Physician Type: Consults Filed: 05/30/2021 10:56 AM Note Text: [facility] TeleNeurology Consult Note Patient seen using [facility]. Recommendations are placed in the chart. Please review. For questions after hours, when teleneurologist is not available, for DRIVER: Please Page [phone] for the [facility]rology Group from 12pm to 8Am Admitting Provider/Consulted by:Hermes Roca MD Time of Note:05/30/2021 Patient Name:Andrew Sifuentes Admit Date:05/29/2021 Hospital Day:0 CC: altered mental status History of Present Illness: Andrew R Gurpreet is a 71 year old unknown handed male with limited information about past medical history including venous insufficiency s/p EVLT, hydrocepalus s/p GENERAL PARTNER shunt in 1987 with multiple revisions and [...] Reflexes Right Lef (more content not included)... [facility] CONSULT PROGon 05-30-2021 CONSULT PROG [facility] CONSULT PROG HNO ID: [id number] Author: Shannon Gutierres [facility] Service: Pharmacy Author Type: Pharmacist Type: Consult Progress Note Filed: 05/30/2021 2:35 PM Note Text: PHARMACY VANCOMYCIN DOSING NOTE Patient Name: Andrew Sifuentes Admission Date: 05/29/2021 Date of Consult: 05/30/2021 Time of Consult: 2:32 PM Indication: possible CONTACT LENS TECHNICIAN infection Goal Range: 15-20 mcg/mL RECOMMENDATIONS/PLAN: Pharmacy [...] any questions, please contact inpatient pharmacy at [phone]. Age: [age] year old Allergies: ALLERGIES Allergen [...] Levels: No results found for: IMANI Gutierres [facility] Normal [facility] Creatinineon 05-30-2021 Creatinine [Mass/Vol] 0.86 mg/dL Normal 0.73-1.22 [facility] Comment on above: Performed By: #### C RET1 ####[facility] Qngufqrxdr4309 [address] eGFR- Amer. >60 Normal [facility] Comment on above: Performed By: #### C RET1 ####[facility] Lxvdusptug4037 [address] eGFR-All Other Races >60 Normal [facility] Comment on above: Result Comment: [...] By: #### C RET1 ####[facility] [address] [place] [phone] Crypto Antigen Deton 022 Crypto Antigen Det Sp. Request/Comment: - SST Test Result - Duplicate request Account Credited [facility] Comment on above: Performed By: #### C AD #### [facility] [address] [place] [address] [facility] [address] [place] [address] Crypto Antigen Det Sp. Request/Comment: - SST Test Result - Cryptococcal antigen detection result: Negative By latex agglutination [facility] Comment on above: Performed By: #### C AD #### [facility] [address] [place] [id number] [facility] [address] [place] [address] ED NOTEon 05-30-2021 ED NOTE HNO ID: [id number] Author: Aletha Lopez RN Service: ? Author Type: Registered Nurse Type: ED Notes Filed: 05/29/2021 11:16 PM Note Text: Patient changed for incontinent urine, labs redrawn and sent. Patient aware of plan to be admitted and agrees with plan Normal [facility] HISTORY PHYSICALon HISTORY PHYSICAL Normal [facility] HISTORY PHYSICAL HNO ID: [id number] Author: Hermes Roca MD Service: Hospital Medicine Author Type: Physician Type: HANDP Filed: 05/30/2021 1:03 AM Note Text: DEPARTMENT OF HOSPITAL MEDICINE HISTORY AND PHYSICAL EXAM SERVICE DATE: 05/29/2021 SERVICE TIME: 11:18 PM Primary Care Physician: Mateus Burris MD NIGHT AND WEEKEND COVERAGE: Please page [phone] until 7:30am this morning. After 7:30am please check the treatment team banner and page the appropriate service. 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ORATORYCLIA [id number] [place] [address] [place] NURSING PROGon 05-30-2021 NURSING PROG HNO ID: [id number] Author: Precious Cervantes RN Service: ? Author Type: Registered Nurse Type: Nursing Progress Note Filed: 05/30/2021 11:26 AM Note Text: Nursing Progress Note Patient Name: Andrew Sifuentes Patient Location: [place] [address]/[id number]- Daily Note: 0700- Report received from ship cleaner RN, patient resting in bed at this time, call light within reach, bed low and locked. Asked the patient to state his name because ship cleaner RN was unable to complete his admission [...] This note was completed by: Precious Cervantes [facility] NURSING PROG HNO ID: [id number] Author: Lyubov Day RN Service: ? Author Type: Registered Nurse Type: Nursing Progress Note Filed: 05/30/2021 1:27 AM Note Text: Nursing Progress Note Patient Name: Andrew STACKN: [id number] Patient Location: [facility]-0217/[id number] 0100: Patient is unresponsive to questions. Patient [...] This note was completed by: Lyubov Day [facility] Phosphate SerPl-mCncon 05-30 Phosphate [Mass/Vol] 3.5 mg/dL Normal 2.7-4.8 [facility] Comment on above: Order Comment: Speci men Type: BLOOD SPECIMEN Performed By: #### 1 9123-9, 2777-1 ####[facility] LABORATORYCLIA [id number] [place] [address] [place] Sepsis Lactateon 05-30-2021 Sepsis Lactate 1.5 mmol/L Normal 0.5-2.0 [facility] Comment on above: Performed By: #### S LACT ####[facility] [address] [place] [phone] Syphilis Ttl w/Reflxon 05-30 Syphilis Interp Cannot exclude recen t Treponemal infection if specimen collected within 7 to 10 days after appearance of suspect lesions or 2 to 3 weeks after an exposure. Clinical correlation is required. [facility] Comment on above: Performed By: #### S SAMUEL RUCKER ####[facility] [place], [place] [phone] Syphilis Screen Rslt Non-Reactive Normal Non Reactive [facility] Comment on above: Performed By: #### S SAMUEL RUCKER ####[facility] [place], [place] [phone] THERAPY NTon 05-30-2021 THERAPY NT HNO ID: [id number] Author: Bette Jimenez OTR/L Service: Occupational Therapy Author Type: Occupational Therapist Type: Therapy (PT/OT/Speech/Resp) Filed: 05/30/2021 10:29 AM Note Text: OCCUPATIONAL THERAPY MISSED VISIT SERVICE DATE: 05/30/2021 SERVICE TIME: 1017 to 1019 ROOM: [place] [address] Attempted Evaluation. Patient not seen due to Not following commands. Per nursing patient was seen by neuro and they are talking about having him transferred to [facility] secondary to shunt concerns. Will re attempt in the event patient continues to be admitted at [facility] and is able to participate. SIGNATURE: RADHA Andres/L PATIENT NAME: Andrew Sifuentes DATE: May 30, 2021 TIME: 10:21 AM Normal [facility] THERAPY NT HNO ID: [id number] Author: Bette Velasquez PT Service: Physical Therapy Author Type: Physical Therapist Type: Therapy (PT/OT/Speech/Resp) Filed: 05/30/2021 8:42 AM Note Text: PHYSICAL THERAPY MISSED VISIT SERVICE DATE: 05/30/2021 SERVICE TIME: 0840 to 0840 ROOM: [place] [address] Attempted Evaluation. Patient not seen due to (pt difficult to awake per RN, very lethargic). Will re-attempt when schedule permits. SIGNATURE: Bette Velasquez PT PATIENT NAME: Andrew Sifuentes DATE: May 30, 2021 TIME: 8:41 AM Normal [facility] Toxicology Screen,Uron 05-30 Amphetamines, Urine Negative Normal Negative [facility] Comment on above: Result Comment: Cuto ff threshold at 1000 ng/mL. Performed By: #### C AD #### [facility] [address] [place] [address] [facility] [address] [place], [place] [address] Barbiturates, Urine Negative Normal Negative [facility] Comment on above: Result Comment: Cuto ff threshold at 200 ng/mL. Performed By: #### C AD #### [facility] [place] [phone] [place] [address] Benzodiazepines, Ur Negative Normal Negative [facility] Comment on above: Result Comment: Cuto ff threshold at 200 ng/mL. Performed By: #### C AD #### [facility]0 [place] [phone] [place] [address] Cannabinoids, Urine Negative Normal Negative [facility] Comment on above: Result Comment: Cuto ff threshold at 50 ng/mL. Performed By: #### C AD #### [facility] [address] [place] [phone] Cocaine, Urine Negative Normal Negative [facility] Comment on above: Result Comment: Cuto ff threshold at 300 ng/mL. Performed By: #### C AD #### [facility] [address] [place], [place] [phone] [place] [address] Opiates, Urine Negative Normal Negative [facility] Comment on above: Result Comment: Cuto ff threshold at 300 ng/mL. Performed By: #### C AD #### [facility] [address] [place], [place] [phone] [place] [address] Oxycodone, Urine Negative Normal Negative [facility] [...] on the same specimen through Client Services ([phone]) if contacted within 48 hours of initial testing. [1]Substance Abuse and Mental Health Services Administration (2012). Clinical Drug Testing in Primary Care Technical Assistance Publication Series 32. Department of Health and Human Services, [place], p.10. Performed By: #### C AD #### [facility] [address] [place] [phone] Phencyclidine, Urine Negative Normal Negative [facility] Comment on above: Result Comment: Cuto ff threshold at 25 ng/mL. Performed By: #### C AD #### [facility] [address] [place] [phone] Troponin Ton 05-30-2021 Troponin T <0.010 Normal 0.000-0.029 [facility] Comment on above: Performed By: #### T NT ####[facility] [address] [place] [phone] Urinalysison 05-30-2021 Bilirubin, Urine Negative Normal Negative [facility] Comment on above: Performed By: #### C AD #### [facility] [address] [place] [phone] Clarity (U) Slightly Cloudy Critically abnormal Clear [facility] Comment on above: Performed By: #### C AD #### [facility] [address] [place] [phone] Color (U) Yellow Normal Yellow [facility] Comment on above: Performed By: #### C AD #### [facility] [address] [place], [place] [address] [place], [place] [address] Glucose Ql (U) Negative Normal Negative [facility] Comment on above: Performed By: #### C AD #### [facility] [address] [place] [address] [facility] [address] [place], [place] [address] Hemoglobin/Blood,Ur Negative Normal Negative [facility] Comment on above: Performed By: #### C AD #### [facility] [address] [place] [address] [facility] [address] [place], [place] [address] Ketones Ql (U) Negative Normal Negative [facility] Comment on above: Performed By: #### C AD #### [facility] [address] [place] [address] [facility] [address] [place], [place] [address] Leukest Negative Normal Negative [facility] Comment on above: Performed By: #### C AD #### [facility] [address] [place] [address] [facility] [address] [place], [place] [address] Nitrite Ql (U) Negative Normal Negative [facility] Comment on above: Performed By: #### C AD #### [facility] [address] [place] [address] [facility] [address] [place], [place] [address] pH (U) 8.5 [pH] High 5.0-8.0 [facility] Comment on above: Performed By: #### C AD #### [facility] [address] [place] [address] [facility] [address] [place], [place] [address] Protein, Urine Negative Normal Negative [facility] Comment on above: Performed By: #### C AD #### [facility] [address] [place] [address] [facility] [address] [place], [place] [address] Specific [place], Ur 1.015 Normal 1.005-1.030 [facility] Comment on above: Performed By: #### C AD #### [facility] [address] [place] [address] [facility] [address] [place], [place] [address] Urobilinogen Qn (U) 0.2 {Marianne'U}/dL Normal 0.2-1.0 [facility] Comment on above: Performed By: #### C AD #### [facility] [address] [place] [address] [address] Vitamin B1, Whole Blon 05-30 Vitamin B1 (TDP), WB 207.1 nmol/L Normal 84.0-213.0 [facility] Comment on above: Result Comment: This assay measures the concentration of thiamine diphosphate (TDP), the primary active form of vitamin B1. Approximately 90 percent of vitamin B1 present in whole blood is TDP. Thiamine and thiamine monophosphate, which comprise the remaining 10 percent, are not measured. This test was developed and its performance characteristics determined by [facility] Isrrael Perez [facility] [place] ( [facility]). It has not been cleared or approved by the FDA. [facility] is regulated under CLIA as qualified to perform high complexity testing. This test is used for clinical purposes. It should not be regarded as investigational or for research. Performed By: #### S YPHTX, B1WB ####[facility] [place], [place] [phone] Vitamin B12on 05-30-2021 Cobalamin (Vitamin B12) [Mass/Vol] 494 pg/mL Normal 232-1245 [facility] Comment on above: Performed By: #### C AD #### [facility] [address] [place] [address] [place] [address] [place], [place] [address] ALLIED HEALTHon 05-29-2021 [facility] HNO ID: [id number] Author: RT Kitty(Lisa) Service: Radiology Author Type: Technologist Type: [facility] Filed: 05/29/2021 8:51 PM Note Text: [...] RT Kitty(R) May 29, 2021 8:51 PM [facility] HNO ID: [id number] Author: Markie Fish Service: ? Author Type: Sheep Sorter Type: [facility] Filed: 05/29/2021 8:39 PM Note Text: [...] Markie Fish May 29, 2021 8:38 PM [facility] CBC and Differentialon 05-29 Abs Baso 0.05 k/uL Normal <0.11 [facility] Comment on above: Performed By: #### C MP, MG1, CBCDIF ####[facility] [address] [place] [address] Abs Uintah 0.72 k/uL Normal <0.87 [facility] Comment on above: Performed By: #### C MP, MG1, CBCDIF ####[facility] [address] [place] [address] Abs Neut 7.86 k/uL High 1.45-7.50 [facility] Comment on above: Performed By: #### C MP, MG1, CBCDIF ####[place] [address] Absolute nRBC <0.01 Normal <0.01 [facility] Comment on above: Performed By: #### C MP, MG1, CBCDIF ####[place] [address] Basophils/100 WBC (Bld) 0.5 % [facility] Comment on above: Performed By: #### C MP, MG1, CBCDIF ####[place] [address] DTYPE Auto Diff Normal [facility] Comment on above: Performed By: #### C MP, MG1, CBCDIF ####[place] [address] Eosinophils (Bld) [#/Vol] 0.10 10*3/uL Normal <0.46 [facility] Comment on above: Performed By: #### C MP, MG1, CBCDIF ####[place] [address] Eosinophils/100 WBC (Bld) 0.9 % [facility] Comment on above: Performed By: #### C MP, MG1, CBCDIF ####[place] [address] Erythrocyte distribution width (RBC) [Ratio] 15.5 % High 11.5-15.0 [facility] Comment on above: Performed By: #### C MP, MG1, CBCDIF ####[place] [address] Hematocrit (Bld) [Volume fraction] 41.6 % Normal 39.0-51.0 [facility] Comment on above: Performed By: #### C MP, MG1, CBCDIF ####[facility] [address] [place] [address] Hemoglobin (Bld) [Mass/Vol] 12.7 g/dL Low 13.0-17.0 [facility] Comment on above: Performed By: #### C MP, MG1, CBCDIF ####[facility] [address] [place] [address] Lymphocytes (Bld) [#/Vol] 2.04 10*3/uL Normal 1.00-4.00 [facility] Comment on above: Performed By: #### C MP, MG1, CBCDIF ####[facility] [address] [place] [address] Lymphocytes/100 WBC (Bld) 18.9 % Normal [facility] Comment on above: Performed By: #### C MP, MG1, CBCDIF ####[facility] [address] [place] [address] MCH 27.3 pG Normal 26.0-34.0 [facility] Comment on above: Performed By: #### C MP, MG1, CBCDIF ####[facility] [address] [place] [address] MCHC (RBC) [Mass/Vol] 30.5 g/dL Normal 30.5-36.0 [facility] Comment on above: Performed By: #### C MP, MG1, CBCDIF ####[facility] [address] [place], [place] [phone] MCV (RBC) [Entitic vol] 89.5 fL Normal 80.0-100.0 [facility] Comment on above: Performed By: #### C MP, MG1, CBCDIF ####[facility] [address] [place], [place] [id number] Monocytes/100 WBC (Bld) 6.7 % Normal [facility] Comment on above: Performed By: #### C MP, MG1, CBCDIF ####[facility] [address] [place], [place] [phone] Neutrophils/100 WBC (Bld) 73.0 % Normal [facility] Comment on above: Performed By: #### C MP, MG1, CBCDIF ####[facility] [address] [place] [address] NRBCs 0.0 /100 WBC Normal 0 [facility] Comment on above: Performed By: #### C MP, MG1, CBCDIF ####[facility] Kg[address]pgqv6251 [address] Platelet mean volume (Bld) [Entitic vol] 10.1 fL Normal 9.0-12.7 [facility] Comment on above: Performed By: #### C MP, MG1, CBCDIF ####[facility] [address] [place] [address] Platelets (Bld) [#/Vol] 291 10*3/uL Normal 150-400 [facility] Comment on above: Performed By: #### C MP, MG1, CBCDIF ####[facility] [address] [place] [address] RBC (Bld) [#/Vol] 4.65 10*6/uL Normal 4.20-6.00 [facility] Comment on above: Performed By: #### C MP, MG1, CBCDIF ####[facility] [address] [place] [address] WBC (Bld) [#/Vol] 10.77 10*3/uL Normal 3.70-11.00 [facility] Comment on above: Performed By: #### C MP, MG1, CBCDIF ####[facility] [address] [place] [phone] CT BRAIN WO IVCONon 05-29-19 CT BRAIN WO IVCON * * *Final Report* * * DATE OF EXAM: May 29 2021 8:42PM [facility] [place], [place] [address] - CT BRAIN WO IVCON / PROCEDURE REASON: Head trauma, headache * * * * Physician Interpretation * * * * EXAMINATION: CT CERVICAL SPINE WO IVCON, CT BRAIN WO IVCON CLINICAL HISTORY: C-spine trauma, NEXUS/CCR positive (accession [id number]), Head trauma, headache (accession [id number]) TECHNIQUE: Serial axial unenhanced images were obtained from the vertex to the foramen magnum. Spiral, high resolution axial unenhanced images were obtained from the skull base to the cervicothoracic junction with sagittal and coronal planar reconstructions. Dose-Length Product (DLP): 2132 mGy*cm. CT Dose Reduction Employed: Automated exposure control (AEC) COMPARISON: 08/13/[address] RESULT: BRAIN: Post-operative change: Right parietal approach GENERAL PARTNER shunt is intact. The intracranial fragments of [...] with counting from the craniocervical junction. Rn Chemical Dependency: OG Transcribe Date/Time: May 29 2021 8:59P Dictated by : CARLOS YOUNGER MD This examination was interpreted and the report reviewed and electronically signed by: CARLOS YOUNGER MD on May 29 2021 9:14PM EST [id number] [facility] CT CERVICAL SPINE WO IVCONon 05-29-2021 CT CERVICAL SPINE WO IVCON * * *Final Report* * * DATE OF EXAM: May 29 2021 8:42PM [facility] [place], [place] [address] - CT CERVICAL SPINE WO IVCON / PROCEDURE REASON: C-spine trauma, NEXUS/CCR positive * * * * Physician Interpretation * * * * EXAMINATION: CT CERVICAL SPINE WO IVCON, CT BRAIN WO IVCON CLINICAL HISTORY: C-spine trauma, NEXUS/CCR positive (accession [id number]), Head trauma, headache (accession [id number]) TECHNIQUE: Serial axial unenhanced images were obtained from the vertex to the foramen magnum. Spiral, high resolution axial unenhanced images were obtained from the skull base to the cervicothoracic junction with sagittal and coronal planar reconstructions. Dose-Length Product (DLP): 2132 mGy*cm. CT Dose Reduction Employed: Automated exposure control (AEC) COMPARISON: 08/13/[address] RESULT: BRAIN: Post-operative change: Right parietal approach GENERAL PARTNER shunt is intact. The intracranial fragments of [...] with counting from the craniocervical junction. [facility] Transcribe Date/Time: May 29 2021 8:59P Dictated by : CARLOS YOUNGER MD This examination was interpreted and the report reviewed and electronically signed by: CARLOS YOUNGER MD on May 29 2021 9:14PM EST [id number] [facility] Cepheid Bill only (EXCFR)on 05-29-2021 Cepheid Bill only (EXCFR) Billed for services performed Normal [facility] Comment on above: Performed By: #### C AD #### [facility] [address] [place] [address] [facility] [address] [place], [place] [address] Comp Metabolic Panelon 05-29 Albumin [Mass/Vol] 4.1 g/dL Normal 3.9-4.9 [facility] Comment on above: Performed By: #### C MP ####[facility] [address] [place] [address] ALP [Catalytic activity/Vol] 86 U/L Normal 38-113 [facility] Comment on above: Performed By: #### C MP ####[facility] [address] [place] [address] ALT [Catalytic activity/Vol] 15 U/L Normal 10-54 [facility] Comment on above: Performed By: #### C MP ####[facility] [address] [place] [address] Anion gap [Moles/Vol] 9 mmol/L Normal 9-18 [facility] Comment on above: Performed By: #### C MP ####[facility] [address] [place] [address] AST [Catalytic activity/Vol] 22 U/L Normal 14-40 [facility] Comment on above: Performed By: #### C MP ####[facility] [address] [place] [address] Bilirubin [Mass/Vol] 0.2 mg/dL Normal 0.2-1.3 [facility] Comment on above: Performed By: #### C MP ####[facility] [address] [place] [address] Calcium [Mass/Vol] 9.1 mg/dL Normal 8.5-10.2 [facility] Comment on above: Performed By: #### C MP ####[facility] [address] [place] [address] Chloride [Moles/Vol] 103 mmol/L Normal 97-105 [facility] Comment on above: Performed By: #### C MP ####[facility] [address] [place] [address] CO2 [Moles/Vol] 29 mmol/L Normal 22-30 [facility] Comment on above: Performed By: #### C MP ####[facility] [address] [place] [address] Creatinine [Mass/Vol] 0.89 mg/dL Normal 0.73-1.22 [facility] Comment on above: Performed By: #### C MP ####[facility] [address] [place] [address] eGFR- Amer. >60 Normal [facility] Comment on above: Performed By: #### C MP ####[facility] [address] [place] [address] eGFR-All Other Races >60 Normal [facility] Comment on above: Result Comment: [...] By: #### C MP ####[facility] Xeht[address]f5227 [address] Glucose [Mass/Vol] 120 mg/dL High 74-99 [facility] Comment on above: Result Comment: The [place] Diabetes [employer] (ADA) provides guidance for cutoff [...] Standards of Medical Care in Diabetes 2016, [place] [employer]. Diabetes Care. 2016.39(Suppl 1). Performed By: #### C MP ####[facility] [address] [place] [address] Potassium [Moles/Vol] 4.2 mmol/L Normal 3.7-5.1 [facility] Comment on above: Performed By: #### C MP ####[facility] [address] [place] [address] Protein [Mass/Vol] 7.1 g/dL Normal 6.3-8.0 [facility] Comment on above: Performed By: #### C MP ####[place] [address] Sodium [Moles/Vol] 141 mmol/L Normal 136-144 [facility] Comment on above: Performed By: #### C MP ####[facility] [address] [place] [address] Urea nitrogen [Mass/Vol] 11 mg/dL Normal 9-24 [facility] Comment on above: Performed By: #### C MP ####[place] [address] Albumin [Mass/Vol] 4.1 g/dL Normal 3.9-4.9 [facility] Comment on above: Performed By: #### C MP, MG1, CBCDIF ####[place] [address] ALP [Catalytic activity/Vol] 86 U/L Normal 38-113 [facility] Comment on above: Performed By: #### C MP, MG1, CBCDIF ####[place] [address] ALT Unable to assay due to interference from hemolysis. Suggest reorder as clinically indicated. Normal 10-54 [facility] Comment on above: Result Comment: Call ed to LISA Rea at 2129 on 05.29.21 by Sabino Performed By: #### C MP, MG1, CBCDIF ####[facility] [address] [place] [address] Anion gap [Moles/Vol] 12 mmol/L Normal 9-18 [facility] Comment on above: Performed By: #### C MP, MG1, CBCDIF ####[facility] [address] [place] [address] AST Unable to assay due to interference from hemolysis. Suggest reorder as clinically indicated. Normal 14-40 [facility] Comment on above: Result Comment: Call ed to ED Álvaro at 2129 on 05.29.21 by Sabino Performed By: #### C MP, MG1, CBCDIF ####[facility] [address] [place] [address] Bilirubin [Mass/Vol] 0.2 mg/dL Normal 0.2-1.3 [facility] Comment on above: Performed By: #### C MP, MG1, CBCDIF ####[facility] [address] [place] [address] Calcium [Mass/Vol] 9.0 mg/dL Normal 8.5-10.2 [facility] Comment on above: Performed By: #### C MP, MG1, CBCDIF ####[facility] [address] [place] [address] Chloride [Moles/Vol] 102 mmol/L Normal 97-105 [facility] Comment on above: Performed By: #### C MP, MG1, CBCDIF ####[facility] [address]z37[address] [place] [address] CO2 [Moles/Vol] 27 mmol/L Normal 22-30 [facility] Comment on above: Performed By: #### C MP, MG1, CBCDIF ####[facility] [address] [place] [address] Creatinine [Mass/Vol] 0.75 mg/dL Normal 0.73-1.22 [facility] Comment on above: Performed By: #### C MP, MG1, CBCDIF ####[facility] [address] [place] [address] eGFR- Amer. >60 Normal [facility] Comment on above: Performed By: #### C MP, MG1, CBCDIF ####[facility] [address]9152 [place] [phone] eGFR-All Other Races >60 Normal [facility] Comment on above: Result Comment: [...] By: #### C MARÍA ELENA, MG1, CBCDIF ####[facility] [address]59[address] [place] [phone] Glucose [Mass/Vol] 112 mg/dL High 74-99 [facility] Comment on above: Result Comment: The [place] Diabetes Association (ADA) provides guidance for cutoff [...] Standards of Medical Care in Diabetes 2016, [place] [employer]. Diabetes Care. 2016.39(Suppl 1). Performed By: #### C MP, MG1, CBCDIF ####[facility] [address]8272 [place] [phone] Potassium Unable to assay due to interference from hemolysis. Suggest reorder as clinically indicated. Normal 3.7-5.1 [facility] Comment on above: Result Comment: Call ed to ED Álvaro at 2129 on 05.29.21 by Sabino Performed By: #### C MP, MG1, CBCDIF ####[facility] [address]3298 [place] [phone] Protein [Mass/Vol] 7.3 g/dL Normal 6.3-8.0 [facility] Comment on above: Performed By: #### C MP, MG1, CBCDIF ####[facility] Ell[address]wtdd9981 [phone] Sodium [Moles/Vol] 141 mmol/L Normal 136-144 [facility] Comment on above: Performed By: #### C MP, MG1, CBCDIF ####[facility] [address]xc[address]ced3424 [place] [phone] Urea nitrogen [Mass/Vol] 11 mg/dL Normal 9-24 [facility] Comment on above: Performed By: #### C MP, MG1, CBCDIF ####[facility] [address]8648 [place] [phone] ED PROV NOTEon 05-29-2021 ED PROV NOTE HNO ID: [id number] Author: Shanell Slaughter MD Service: ? Author [...] radiographic evidence of acute cardiopulmonary disease. Rn Chemical Dependency: [facility] Transcribe Date/Time: May 29 2021 8:53P Dictated [...] with counting from the craniocervical junction. Rn Chemical Dependency: [facility] Transcribe Date/Time: May 29 2021 8:59P Dictated [...] with counting from the craniocervical junction. Rn Chemical Dependency: [facility] Transcribe Date/Time: May 29 (more content not included)... 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 Provider Location: [facility] Patient Location: Outpatient [facility] Physical Exam [...] Flavio Pandya, DO Flavio Pandya, 05/29/211909 Normal [facility] EXCOVD, Flu A/B, RSV (On int erfaces 1102,1120)on 05-29-2021 Influenza A PCR Negative Normal [facility] Comment on above: Performed By: #### C AD #### [facility] [address] [place], [place] [address] [place] [address] Influenza B PCR Negative Normal [facility] Comment on above: Performed By: #### C AD #### [facility] [address] [place], [place] [address] [place] [address] RSV PCR Negative Normal [facility] Comment on above: Result Comment: This test has been authorized by [facility] under an Emergency Use Authorization (EUA). Performed By: #### C AD #### [facility] [address] [place] [address] SARS-CoV-2 (COVID-19) RNA MEGAN+probe Ql (Unsp spec) UPPER RESPIRATORY TRACT SWAB Normal [facility] Comment on above: Performed By: #### C AD #### [facility] [address] [place], [place] [address] [place] [address] SARS-CoV-2 (COVID-19) RNA MEGAN+probe Ql (Unsp spec) Negative for COVID19 (SARS CoV2) by RT-PCR or equivalent method. Normal Negative for COVID19 (SARS CoV2) by RT-PCR or equivalent method. [facility] Comment on above: Result Comment: This test has been authorized by [facility] under an Emergency Use Authorization (EUA). Performed By: #### C AD #### [facility] [address] [place], [place] [address] [place] [phone] Magnesiumon 05-29-2021 Magnesium [Mass/Vol] 2.2 mg/dL Normal 1.7-2.3 [facility] Comment on above: Performed By: #### C MP, MG1, CBCDIF ####[phone] NT Pro BNPon 05-29-2021 PRO B Natr Peptide 303 pg/mL High <125 [facility] Comment on above: Performed By: #### N TBNP ####[facility] Vfqqktwvvx0519 [phone] Troponin Ton 05-29-2021 Troponin T <0.010 Normal 0.000-0.029 [facility] Comment on above: Performed By: #### T NT ####[facility] [id number] [id number] Troponin T Unable to assay due to interference from hemolysis. Suggest reorder as clinically indicated. Normal 0.000-0.029 [facility] Comment on above: Result Comment: Call ed to ED Álvaro at [phone] on 05.29.21 by Sabino Performed By: #### T NT ####[facility] [id number] XR CHEST 1V FRONTAL PORTon 0 [...] radiographic evidence of acute cardiopulmonary disease. Rn Chemical Dependency: OG Transcribe Date/Time: May 29 2021 8:53P Dictated by : ROLY BANGURA MD This examination was interpreted and the report reviewed and electronically signed by: ROLY BANGURA MD on May 29 2021 8:54PM EST [id number] Normal [facility] COMPREHENSIVE PANELon 2020 Albumin [Mass/Vol] 3.9 g/dL Normal 3.4 - 5.0 [facility] Comment on above: Order Comment: PATIE NT FASTING Performed By: #### C MP #### [facility] [address] [place] [address] ALP [Catalytic activity/Vol] 71 U/L Normal 33 - 136 [facility] Comment on above: Order Comment: PATIE NT FASTING Performed By: #### C MP #### [facility] [address] [place] [address] ALT [Catalytic activity/Vol] 19 U/L Normal 10 - 52 [facility] Comment on above: Order Comment: PATIE NT FASTING Result Comment: Nasima ents treated with Sulfasalazine may generate falsely decreased results for ALT. Performed By: #### C MP #### [facility] [address] [place] [address] Anion gap [Moles/Vol] 13 mmol/L Normal 10 - 20 [facility] Comment on above: Order Comment: PATIE NT FASTING Performed By: #### C MP #### [facility] [address] [place] [address] AST [Catalytic activity/Vol] 20 U/L Normal 9 - 39 [facility] Comment on above: Order Comment: PATIE NT FASTING Performed By: #### C MP #### [facility] [address] [place] [address] Bilirubin [Mass/Vol] 0.6 mg/dL Normal 0.0 - 1.2 [facility] Comment on above: Order Comment: PATIE NT FASTING Performed By: #### C MP #### [facility] [address] [place] [address] Calcium [Mass/Vol] 9.0 mg/dL Normal 8.6 - 10.6 [facility] Comment on above: Order Comment: PATIE NT FASTING Performed By: #### C MP #### [facility] [address] [place] [address] Chloride [Moles/Vol] 103 mmol/L Normal 98 - 107 [facility] Comment on above: Order Comment: PATIE NT FASTING Performed By: #### C MP #### [facility] [address] [place] [address] Creatinine [Mass/Vol] 0.94 mg/dL Normal 0.50 - 1.30 [facility] Comment on above: Order Comment: PATIE NT FASTING Performed By: #### C MP #### [facility] [address] [place] [address] GFR- AM. >60 Normal >60 [facility] Comment on above: Order Comment: PATIE NT FASTING Result Comment: CALC ULATIONS OF ESTIMATED GFR ARE PERFORMED USING THE MDRD STUDY EQUATION FOR THE IDMS-TRACEABLE CREATININE METHODS. CLIN CHEM 2007;53:766-72 Performed By: #### C MP #### [facility] [address] [place] [address] GFR-NON AM. >60 Normal >60 [facility] Comment on above: Order Comment: PATIE NT FASTING Performed By: #### C MP #### [facility] [address] [place] [address] Glucose [Mass/Vol] 85 mg/dL Normal 74 - 99 [facility] Comment on above: Order Comment: PATIE NT FASTING Performed By: #### C MP #### [facility] [address] [place] [address] HCO3 (Bld) [Moles/Vol] 30 mmol/L Normal 21 - 32 [facility] Comment on above: Order Comment: PATIE NT FASTING Performed By: #### C MP #### [facility] [address] [place] [address] Potassium [Moles/Vol] 4.1 mmol/L Normal 3.5 - 5.3 [facility] Comment on above: Order Comment: PATIE NT FASTING Performed By: #### C MP #### [facility] [address] [place] [address] Protein [Mass/Vol] 6.6 g/dL Normal 6.4 - 8.2 [facility] Comment on above: Order Comment: PATIE NT FASTING Performed By: #### C MP #### [facility] [address] [place] [address] Sodium [Moles/Vol] 142 mmol/L Normal 136 - 145 [facility] Comment on above: Order Comment: PATIE NT FASTING Performed By: #### C MP #### [facility] [address] [place] [address] Urea nitrogen [Mass/Vol] 14 mg/dL Normal 6 - 23 [facility] Comment on above: Order Comment: PATIE NT FASTING Performed By: #### C MP #### [facility] [address] [place] [address] LIPID PANEL (CORONARY RISK 2 )on 09-03-2020 Cholesterol [Mass/Vol] 210 mg/dL High 0 - 199 [facility] Comment on above: Order Comment: PATIE [...] Performed By: #### L IPID #### [facility] [address] [place] [address] Cholesterol in HDL [Mass/Vol] 50.1 mg/dL Normal [facility] Comment on above: Order Comment: PATIE NT FASTING Result Comment: . AGE VERY LOW LOW NORMAL HIGH 0-19 Y < 35 < 40 40-45 ---- 20-24 Y ---- < 40 >45 ---- >24 Y ---- < 40 40-60 >60 . Performed By: #### L IPID #### [facility] BY [facility] [address] [place] [address] Cholesterol in LDL [Mass/Vol] 130 mg/dL High 0 - 99 [facility] Comment on above: Order Comment: PATIE NT FASTING Result Comment: . NEAR BORD AGE DESIRABLE OPTIMAL HIGH HIGH VERY HIGH 0-19 Y 0 - 109 --- 110-129 >/= 130 ---- 20-24 Y 0 - 119 --- 120-159 >/= 160 ---- >24 Y 0 - 99 100-129 130-159 160-189 >/=190 . Performed By: #### L IPID #### [facility] [address] [place] [address] Cholesterol in VLDL [Mass/Vol] 30 mg/dL Normal 0 - 40 [facility] Comment on above: Order Comment: PATIE NT FASTING Performed By: #### L IPID #### [facility] [address] [place] [address] Cholesterol.total/Chol esterol in HDL [Mass ratio] 4.2 {ratio} Normal [facility] Comment on above: Order Comment: PATIE NT FASTING Result Comment: REF VALUES DESIRABLE < 3.4 HIGH RISK > 5.0 Performed By: #### L IPID #### [facility] [address] [place] [address] Triglyceride [Mass/Vol] 152 mg/dL High 0 - 149 [facility] Comment on above: Order Comment: PATIE [...] Performed By: #### L IPID #### [facility] [address] [place] [address] PROSTATE SPEC.AG,SCREENon PROSTATE SPEC.AG,SCREEN 0.37 ng/mL Normal 0.00 - 4.00 [facility] Comment on above: Order Comment: PATIE NT FASTING Result Comment: The FDA requires that the method used for PSA assay be reported to the physician. Values obtained with different assay methods must not be used interchangeably. This test was performed at [facility] using the Siemens FlypaperllMicrotune PSA method, which is a sandwich immunoassay using chemiluminescence for quantitation. The assay is approved for measurement of prostate-specific antigen (PSA) in serum and may be used in conjunction with a digital rectal examination in men 50 years and older as an aid in detection of prostate cancer. 0-Erecw-lvcljpwgd inhibitors (e.g. Proscar, Finasteride, Avodart, Dutasteride and Elizabeth) for the treatment of BPH have been shown to lower PSA levels by an average of 50% after 6 months of treatment. Performed By: #### P SAS #### [facility] [address] [place] [address] TSH WITH REFLEX TO FREE T4 I F ABNORMALon 09-03-2020 TSH Qn 0.97 m[IU]/L Normal 0.44 - 3.98 [facility] Comment on above: Order Comment: PATIE NT FASTING Result Comment: TSH testing is performed using different testing methodology at [facility] than at other [facility]. Direct result comparisons should only be made within the same method. Performed By: #### T HYDS #### [facility] [address] [place] [address] CBC AND DIFFERENTIALon 09-02 % AUTOMATED IMMATURE GRAN 0.3 % Normal 0.0 - 0.9 [facility] Comment on above: Order Comment: PATIE NT FASTING Result Comment: [place] Granulocyte Count (IG) includes promyelocytes, myelocytes and metamyelocytes but does not include bands. Percent differential counts (%) should be interpreted in the context of the absolute cell counts (cells/L). Performed By: #### C BCDF #### [facility] [address] [place] [address] Basophils (Bld) [#/Vol] 0.07 10*3/uL Normal 0.00 - 0.10 [facility] Comment on above: Order Comment: PATIE NT FASTING Result Comment: Auto mated WBC differential has been confirmed by manual smear. Performed By: #### C BCDF #### [facility] [address] [place] [address] Basophils/100 WBC (Bld) 0.9 % Normal 0.0 - 2.0 [facility] Comment on above: Order Comment: PATIE NT FASTING Performed By: #### C BCDF #### [facility] [address] [place] [address] Eosinophils (Bld) [#/Vol] 0.21 10*3/uL Normal 0.00 - 0.70 [facility] Comment on above: Order Comment: PATIE NT FASTING Performed By: #### C BCDF #### [facility] [address] [place] [address] Eosinophils/100 WBC (Bld) 2.8 % Normal 0.0 - 6.0 [facility] Comment on above: Order Comment: PATIE NT FASTING Performed By: #### C BCDF #### [facility] [address] [place] [address] Lymphocytes (Bld) [#/Vol] 2.28 10*3/uL Normal 1.20 - 4.80 [facility] Comment on above: Order Comment: PATIE NT FASTING Performed By: #### C BCDF #### [place] [address] [place] [address] Lymphocytes/100 WBC (Bld) 30.9 % Normal 13.0 - 44.0 [facility] Comment on above: Order Comment: PATIE NT FASTING Performed By: #### C BCDF #### [facility] [address] [place] [address] Monocytes (Bld) [#/Vol] 0.50 10*3/uL Normal 0.10 - 1.00 [facility] Comment on above: Order Comment: PATIE NT FASTING Performed By: #### C BCDF #### [facility] [address] [place] [address] Monocytes/100 WBC (Bld) 6.8 % Normal 2.0 - 10.0 [facility] Comment on above: Order Comment: PATIE NT FASTING Performed By: #### C BCDF #### [facility] [address] [place] [address] Neutrophils (Bld) [#/Vol] 4.29 10*3/uL Normal 1.20 - 7.70 [facility] Comment on above: Order Comment: PATIE NT FASTING Performed By: #### C BCDF #### [facility] [address] [place] [address] Neutrophils/100 WBC (Bld) 58.3 % Normal 40.0 - 80.0 [facility] Comment on above: Order Comment: PATIE NT FASTING Performed By: #### C BCDF #### [facility] [address] [place] [address] Erythrocyte distribution width (RBC) [Ratio] 14.6 % High 11.5 - 14.5 [facility] Comment on above: Order Comment: PATIE NT FASTING Performed By: #### C BCDF #### [facility] [address] [place] [address] Hematocrit (Bld) [Volume fraction] 43.1 % Normal 41.0 - 52.0 [facility] Comment on above: Order Comment: PATIE NT FASTING Performed By: #### C BCDF #### [facility] [address] [place] [address] Hemoglobin (Bld) [Mass/Vol] 13.3 g/dL Low 13.5 - 17.5 [facility] Comment on above: Order Comment: PATIE NT FASTING Performed By: #### C BCDF #### [facility] [address] [place] [address] MCHC (RBC) [Mass/Vol] 30.9 g/dL Low 32.0 - 36.0 [facility] Comment on above: Order Comment: PATIE NT FASTING Performed By: #### C BCDF #### [facility] [address] [place] [address] MCV (RBC) [Entitic vol] 92 fL Normal 80 - 100 [facility] Comment on above: Order Comment: PATIE NT FASTING Performed By: #### C BCDF #### REPLACED BY [facility] [address] [place] [address] NUCLEATED RBC 0.0 /100 WBC Normal 0.0-0.0 [facility] Comment on above: Order Comment: PATIE NT FASTING Performed By: #### C BCDF #### REPLACED BY [facility] [address] [place] [address] Platelets (Bld) [#/Vol] 267 10*3/uL Normal 150 - 450 [facility] Comment on above: Order Comment: PATIE NT FASTING Performed By: #### C BCDF #### [facility] [address] [place] [address] RBC 4.69 x10E12/L Normal 4.50 - 5.90 [facility] Comment on above: Order Comment: PATIE NT FASTING Performed By: #### C BCDF #### [facility] [address] [place] [address] WBC (Bld) [#/Vol] 7.4 10*3/uL Normal 4.4 - 11.3 [facility] Comment on above: Order Comment: PATIE NT FASTING Performed By: #### C BCDF #### [facility] [address] [place] [address] RED CELL MORPHOLOGYon 2020 CHANELL CELLS Few Normal [facility] Comment on above: Order Comment: PATIE NT FASTING Performed By: #### M ORP2 #### [facility] [address] [place] [address] OVALOCYTES Few Normal [facility] Comment on above: Order Comment: PATIE NT FASTING Performed By: #### M ORP2 #### [facility] [address] [place] [address] POLYCHROMASIA Mild Normal [facility] Comment on above: Order Comment: PATIE NT FASTING Performed By: #### M ORP2 #### [facility] [address] [place] [address] RBC FRAGMENTS Few Normal [facility] Comment on above: Order Comment: PATIE NT FASTING Performed By: #### M ORP2 #### [facility] [address] [place] [address] RBC morphology finding Nom (Bld) See Below Normal [facility] Comment on above: Order Comment: PATIE NT FASTING Performed By: #### M ORP2 #### [facility] [address] [place] [address] No Panel Informationon 01-19 76 1 MP-Cardiolo [...] [place] Work Phone: [email or web address] ?RetrieveTestByDateTime?[email or web address] [email or web address]&Date=1 09-13-2019&Time=15%3a11%3a 03%3a00&TestType=ECG&Site =1&OutputType=PDF&Ext=PDF [facility]-Cardiolo gy-[place] [address] [place] Work Phone: Otheron 11-13-2019 [facility] Complete Blood Count + Diffe rentialon 11-06-2019 Basophils (Bld) [#/Vol] 0.06 {x10E9/L} See Below [facility] Work Phone: Comment on above: Reference Range: 0.0 0 - 0.10 Basophils/100 WBC (Bld) 0.8 % 0.0 - 2.0 [facility] Work Phone: [phone] Eosinophils (Bld) [#/Vol] 0.18 {x10E9/L} See Below [facility] Work Phone: Comment on above: Reference Range: 0.0 0 - 0.70 Eosinophils/100 WBC (Bld) 2.5 % 0.0 - 6.0 [facility] Work Phone: Erythrocyte distribution width (RBC) [Ratio] 13.7 % See Below [facility] Work Phone: Comment on above: Reference Range: 11. 5 - 14.5 Hematocrit (Bld) [Volume fraction] 45.5 % See Below [facility] Work Phone: Comment on above: Reference Range: 41. 0 - 52.0 Hemoglobin (Bld) [Mass/Vol] 14.0 g/dL See Below [facility] Work Phone: Comment on above: Reference Range: 13. 5 - 17.5 Lymphocytes (Bld) [#/Vol] 2.15 {x10E9/L} See Below [facility] Work Phone: Comment on above: Reference Range: 1.2 0 - 4.80 Lymphocytes/100 WBC (Bld) 29.9 % See Below [facility] Work Phone: Comment on above: Reference Range: 13. 0 - 44.0 MCHC (RBC) [Mass/Vol] 30.8 g/dL below low threshold See Below [facility] Work Phone: Comment on above: Reference Range: 32. 0 - 36.0 MCV (RBC) [Entitic vol] 94 fL 80 - 100 [facility] Work Phone: Monocytes (Bld) [#/Vol] 0.49 {x10E9/L} See Below [facility] Work Phone: Comment on above: Reference Range: 0.1 0 - 1.00 Monocytes/100 WBC (Bld) 6.8 % 2.0 - 10.0 [facility] Work Phone: Neutrophils (Bld) [#/Vol] 4.30 {x10E9/L} See Below [facility] Work Phone: Comment on above: Reference Range: 1.2 0 - 7.70 Neutrophils/100 WBC (Bld) 59.9 % See Below [facility] Physician [facility] Work Phone: Comment on above: Reference Range: 40. 0 - 80.0 Platelets (Bld) [#/Vol] 270 {x10E9/L} 150 - 450 [facility] Work Phone: RBC (Bld) [#/Vol] 4.85 {x10E12/L} See Below [facility] Physician [facility] Work Phone: Comment on above: Reference Range: 4.5 0 - 5.90 WBC (Bld) [#/Vol] 0.0 {/100_WBC} 0.0-0.0 [facility] Work Phone: WBC (Bld) [#/Vol] 7.2 {x10E9/L} 4.4 - 11.3 [facility] Physician [facility] Work Phone: Complete Blood Count + Differential 0.1 % 0.0 - 0.9 [facility] Physician [facility] Work Phone: Comment on above: Immature Granulocyte Count (IG) includes promyelocytes, myelocytes and metamyelocytes but does not include bands. Percent differential counts (%) should be interpreted in the context of the absolute cell counts (cells/L). Lipid Panelon 11-06-2019 Cholesterol [Mass/Vol] 181 mg/dL 0 - 199 [facility] Physician [facility] Work Phone: Comment on above: . AGE [...] 52.1 mg/dL [facility] Physician [facility] Work Phone: Comment on above: . AGE VERY LOW LOW N ORMAL HIGH 0-19 Y < 35 < 40 40-45 ---- 20-24 Y ---- < 40 >45 ---- >24 Y ---- < 40 40-60 >60. Cholesterol in LDL [Mass/Vol] 97 mg/dL 0 - 99 [facility] Work Phone: Comment on above: . NEAR BORD AGE IZABELLA RABLE OPTIMAL HIGH HIGH VERY HIGH 0-19 Y 0 - 109 --- 110-129 >/= 130 ---- 20-24 Y 0 - 119 --- 120-159 >/= 160 ---- >24 Y 0 - 99 100-129 130-159 160-189 >/=190. Cholesterol.total/Chol esterol in HDL [Mass ratio] 3.5 {ratio} [facility] Work Phone: Comment on above: REF VALUESDESIRABLE < 3.4HIGH RISK > 5.0 Triglyceride [Mass/Vol] 158 mg/dL above high threshold 0 - 149 [facility] Work Phone: Comment on above: [...] - 40 [facility] Work Phone: Metabolic Panelon 11-06-2019 ALP [Catalytic activity/Vol] 70 U/L 33 - 136 [facility] Physician [facility] Work Phone: Anion gap [Moles/Vol] 13 mmol/L 10 - 20 [facility] Work Phone: Bilirubin [Mass/Vol] 0.6 mg/dL 0.0 - 1.2 [facility] Physician [facility] Work Phone: Calcium [Mass/Vol] 9.4 mg/dL 8.6 - 10.6 [facility] Work Phone: Chloride [Moles/Vol] 99 mmol/L 98 - 107 [facility] Work Phone: CO2 [Moles/Vol] 30 mmol/L 21 - 32 [facility] Physician [facility] Work Phone: Creatinine [Mass/Vol] 0.87 mg/dL See Below [facility] Physician [facility] Work Phone: Comment on above: Reference Range: 0.5 0 - 1.30 Glucose [Mass/Vol] 89 mg/dL 74 - 99 [facility] Physician [facility] Work Phone: Potassium [Moles/Vol] 4.3 mmol/L 3.5 - 5.3 [facility] Work Phone: Protein [Mass/Vol] 7.3 g/dL 6.4 - 8.2 [facility] Work Phone: Sodium [Moles/Vol] 138 mmol/L 136 - 145 [facility] Work Phone: Urea nitrogen [Mass/Vol] 14 mg/dL 6 - 23 [facility] Work Phone: Otheron 11-06-2019 Albumin BCP dye [Mass/Vol] 4.4 g/dL 3.4 - 5.0 [facility] Work Phone: ALT With P-5'-P [Catalytic activity/Vol] 11 U/L 10 - 52 [facility] Work Phone: Comment on above: Patients treated wit h Sulfasalazine may generate falsely decreased results for ALT. AST With P-5'-P [Catalytic activity/Vol] 17 U/L 9 - 39 [facility] Work Phone: >60 >60 [facility] Work Phone: Comment on above: CALCULATIONS OF LUZMARIA MATED GFR ARE PERFORMED USING THE MDRD STUDY EQUATION FOR THE IDMS-TRACEABLE CREATININE METHODS. CLIN CHEM 2007;53:766-72 Culture, urine Bacteria identified Cx Nom (U) Mixed Gram Pos & Gram Neg Org [facility] Work Phone: Bacteria identified Cx Nom (U) Klebsiella pneumoniae sp pneum [facility] Work Phone: Vital Signs Date Time Vital Sign Value Performing Clinician Facility 09-13-2023 11:48-0400 Body height 175.3 cm Rebecca Buck MD Work Phone: [facility] 09-13-2023 11:48-0400 Body mass index (BMI) [Ratio] 25.84 kg/m2 Rebecca Buck MD Work Phone: [facility] 09-13-2023 11:48-0400 Body weight 79.38 kg Rebecca Buck MD Work Phone: [facility] 08-13-2023 09:56-0400 Body height 175.3 cm Rebecca Buck MD Work Phone: [facility] 08-13-2023 09:56-0400 Body mass index (BMI) [Ratio] 25.84 kg/m2 Rebecca Buck MD Work Phone: [facility] 08-13-2023 09:56-0400 Body weight 79.38 kg Rebecca Buck MD Work Phone: [facility] 03-02-2022 18:49-0400 Body temperature 98.01 [degF] Lanette Munguia DO Work Phone: [facility] 03-02-2022 18:49-0400 Diastolic blood pressure 72 mm[Hg] Lanette Munguia DO [facility] 03-02-2022 18:49-0400 Heart rate 94 /min Lanette Munguia DO Work Phone: [facility] 03-02-2022 18:49-0400 Respiratory rate 18 /min Lanette Munguia DO Work Phone: [facility] 03-02-2022 18:49-0400 SaO2% (BldA) [Mass fraction] 98 % Lanette Munguia DO Work Phone: [facility] 03-02-2022 18:49-0400 Systolic blood pressure 104 mm[Hg] Lanette Munguia DO Work Phone: [facility] 03-02-2022 11:55-0400 Body height 175.3 cm Lanette Munguia DO Work Phone: [facility] 03-02-2022 11:55-0400 Body mass index (BMI) [Ratio] 25.84 kg/m2 Lanette Munguia DO Work Phone: [facility] 03-02-2022 11:55-0400 Body weight 79.38 kg Lanette Munguia DO Work Phone: [facility] 12-22-2021 02:08-0400 Diastolic blood pressure 67 mm[Hg] Sharon Olivia MD Work Phone: [facility] 12-22-2021 02:08-0400 Heart rate 77 /min Sharon Olivia MD Work Phone: [facility] 12-22-2021 02:08-0400 Respiratory rate 16 /min Sharon Olivia MD Work Phone: [facility] 12-22-2021 02:08-0400 SaO2% (BldA) [Mass fraction] 96 % Sharon Olivia MD Work Phone: [facility] 12-22-2021 02:08-0400 Systolic blood pressure 108 mm[Hg] Sharon Olivia MD Work Phone: [facility] [facility] 12-21-2021 23:52-0400 Body height 175.3 cm Sharon Olivia MD Work Phone: [facility] 12-21-2021 23:52-0400 Body mass index (BMI) [Ratio] 25.84 kg/m2 Sharon Olivia MD Work Phone: [facility] 12-21-2021 23:52-0400 Body temperature 97.9 [degF] Sharon Olivia MD Work Phone: [facility] 12-21-2021 23:52-0400 Body weight 79.38 kg Sharon Olivia MD Work Phone: [facility] 11-01-2021 08:41-0400 Diastolic blood pressure 77 mm[Hg] Dante Kim MD Work Phone: [facility] 11-01-2021 08:41-0400 Heart rate 75 /min Dante Kim MD Work Phone: [facility] 11-01-2021 08:41-0400 Respiratory rate 16 /min Dante Kim MD Work Phone: [facility] 11-01-2021 08:41-0400 SaO2% (BldA) [Mass fraction] 97 % Dante Kim MD Work Phone: [facility] 11-01-2021 08:41-0400 Systolic blood pressure 112 mm[Hg] Dante Kim MD Work Phone: [facility] 10-31-2021 19:13-0400 Body height 177.8 cm Dante Kim MD Work Phone: [facility] 10-31-2021 19:13-0400 Body mass index (BMI) [Ratio] 27.26 kg/m2 Dante Kim MD Work Phone: [facility] 10-31-2021 19:13-0400 Body temperature 98.49 [degF] Dante Kim MD Work Phone: [facility] 10-31-2021 19:13-0400 Body weight 86.18 kg Dante Kim MD Work Phone: [facility] 10-29-2021 07:38-0400 Body temperature 97.81 [degF] Lisa Miguel Angel DO Work Phone: [facility] 10-29-2021 07:38-0400 Diastolic blood pressure 79 mm[Hg] Lisa Miguel Angel DO Work Phone: [facility] 10-29-2021 07:38-0400 Heart rate 80 /min Lisa Miguel Angel DO Work Phone: [facility] 10-29-2021 07:38-0400 Respiratory rate 18 /min Lisa Miguel Angel DO Work Phone: [facility] 10-29-2021 07:38-0400 SaO2% (BldA) [Mass fraction] 96 % Lisa Miguel Angel DO Work Phone: [facility] 10-29-2021 07:38-0400 Systolic blood pressure 123 mm[Hg] Lisa Miguel Angel DO Work Phone: [facility] 10-25-2021 13:55-0400 Body height 170.2 cm Lisa Miguel Angel DO Work Phone: [facility] 10-21-2021 00:57-0400 Body mass index (BMI) [Ratio] 37.58 kg/m2 Lias Miguel Angel DO Work Phone: [facility] 10-21-2021 00:57-0400 Body weight 108.86 kg Lisa Miguel Angel DO Work Phone: [facility] 07-13-2020 13:21-0500 BMI (Body Mass Index) 40.47 kg/m2 Monika Staley [facility] Work Phone: 07-13-2020 13:21-0500 Body Temperature 98 [degF] Monika Staley [facility] Work Phone: 07-13-2020 13:21-0500 [...] Phone: 04-13-2020 15:33-0500 BP Diastolic 82 mm[Hg] Wingblayne Harrison [facility] Work Phone: Comment [...] Source: 04-13-2020 15:33-[address] [facility] Work Phone: Comment on above: Pain Scale 01-20-2020 16:39-0400 Body height 175.26 cm Monika Staley MD [facility] [address] [place] Work Phone: 01-20-2020 16:39-0400 Body mass index (BMI) [Ratio] 39.28 kg/m2 Monika Staley MD BA-Lmwanuqhtq-Jax [facility] [address] [place] Work Phone: 01-20-2020 16:39-0400 Body surface area Derived from formula 2.33 m2 Monika Staley MD HP-Hivilcctud-Uko [facility] [address] [place] Work Phone: 01-20-2020 16:39-0400 Body weight 120.66 kg Monika Staley MD [facility] [address] [place] Work Phone: 01-20-2020 16:39-0400 Diastolic blood pressure 84 mm[Hg] Monika Staley MD HA-Onmixsqoxl-Wvi [facility] [address] [place] Work Phone: Comment on above: Location: [facility]; Position: Sitting 01-20-2020 16:39-0400 Heart rate 80 /min Monika Staley MD, [facility] [address] [place] Work Phone: 01-20-2020 16:39-0400 SaO2% (BldA) [Mass fraction] 100 % Mnoika Staley MD ZW-Jkmlmgkugw-Jlm [place] [address] [place] Work Phone: Comment on above: Source: 01-20-2020 16:39-0400 Systolic blood pressure 144 mm[Hg] Monika Staley MD CE-Jivsgiyonw-Geo [facility] [address] [place] Work Phone: Comment on [...] Date Encounter Type Care Provider Facility Start: 03-16-2025 ambulatory Carlos Cavazos OLS Faci lity:[facility] Start: 03-13-2025 ambulatory Carlos Quickros OLS Faci lity:[facility] Start: 03-12-[facility] Start: 03-11-2025 ambulatory Carlos Quickros OLS Faci lity:[facility] Start: 03-09-2025 ambulatory Mahaveer kka flash OLS Facility:[facility] Start: 03-05-2025 ambulatory [facility] Start: 03-02-2025 ambulatory Peter Katsaros OLS Faci lity:[facility] Start: 02-26-2025 ambulatory Mahaveer kka flash OLS Facility:[facility] Start: 02-23-2025 [facility] Start: 02-19-2025 ambulatory Karon muellera OLS Facility:[facility] Start: 02-16-2025 End: 02-16-2025 ambulatory Karon Farmera OLS Facility:[facility] Start: 02-12-2025 Registered [facility]erred [facility] Start: 02-12-2025 End: 02-12-2025 ambulatory Karon Farmera OLS Facility:[facility] Start: 02-09-2025 Registered Referred Carlos Cavazos - [facility] [employer] [facility] Start: 02-09-2025 ambulatory Carlos Cavazos OLS Faci lity:[facility] Start: 02-05-2025 Registered Referred [facility] [employer] Start: 02-05-2025 End: 02-05-2025 ambulatory Karon Farmera OLS Facility:[facility] Start: 02-02-2025 Registered Referred Karon ReederTeresita [employer] Start: 02-02-2025 End: 02-02-2025 ambulatory Karon Farmera OLS Facility:[facility] Start: 01-29-2025 Registered Referred [facility] Start: 01-29-2025 End: 01-29-2025 ambulatory Karon Farmera OLS Facility:[facility] Start: 01-26-2025 Registered Referred Karon Reeder[facility]ita [employer] Start: 01-26-2025 End: 01-26-2025 ambulatory Karon Delacruzlla OLS Facility:[facility] Start: 01-22-2025 Registered Referred [facility] Start: 01-22-2025 End: 01-22-2025 ambulatory Carlaavenoe Delacruzlla OLS Facility:[facility] Start: 01-19-2025 Registered Referred Carlos Cavazos - [facility] [employer] Start: 01-19-2025 End: 01-19-2025 ambulatory Carlos Cavazos OLS Facility:[facility] Start: 01-15-2025 Registered Referred Karon casillas MD -[facility] [employer] Start: 01-15-2025 End: 01-15-2025 ambulatory [facility] OLS Facility:[facility] Start: 01-12-2025 Registered Referred Karon casillas MD -[facility] [employer] Start: 01-12-2025 End: 01-12-2025 ambulatory [facility] OLS Facility:[facility] Start: 01-08-2025 Registered Referred Karon casillas MD -[facility] [employer] Start: 01-08-2025 End: 01-08-2025 ambulatory [facility] OLS Facility:[facility] Start: 01-06-2025 Registered Referred Karon casillas MD -[facility] [employer] Start: 01-06-2025 End: 01-06-2025 ambulatory [facility] OLS Facility:[facility] Start: 01-01-2025 End: 01-01-[address] Monika Staley MD Work Phone: -[facility] [employer] Start: 01-01-2025 End: 01-01-2025 Departed Referred Karon Corrales MD -[facility] [employer] Start: 01-01-2025 Registered Referred Karon casillas MD -[facility] [employer] Start: 01-01-2025 End: 01-01-2025 [facility] Start: 12-29-2024 Registered Referred Carlos Cavazos - [facility] [employer] Start: 12-29-2024 End: 12-29-2024 ambulatory Carlos Cavazos OLS Facility:[facility] Start: 12-26-2024 End: 12-26-[address] Monika Staley MD Work Phone: -[facility] [employer] Start: 12-26-2024 End: 12-26-2024 Departed Referred Karon Corrales MD -[facility] [employer] Start: 12-26-2024 Registered Referred Karon casillas MD -[facility] [employer] Start: 12-26-2024 End: 12-26-2024 ambulatory Mahaveer Mukkamalla OLS Facility:[facility] Start: 12-25-2024 Registered Referred Karon casillas MD -[facility] [employer] Start: 12-24-2024 End: 12-25-2024 ambulatory Mahaveer Mukkamalla OLS Facility:[facility] Start: 12-24-2024 Registered Referred Carlos Lópezsaros - [facility] [employer] Start: 12-22-[address] [facility] flash OLS Facility:[facility] Start: 12-22-2024 Registered Referred Karon casillas MD -[facility] [employer] Start: 12-18-2024 Registered Referred Karon casillas MD -[facility] [employer] Start: 12-18-2024 End: 12-18-2024 ambulatory Carlaaveer Princeamalla OLS Facility:[facility] Start: 12-15-2024 [facility] Start: 12-15-2024 Registered Referred Karon casillas MD -[facility] [employer] Start: 12-11-2024 Registered Referred Carlos Cavazos - [facility] [employer] Start: 12-11-2024 End: 12-11-2024 ambulatory Carlos Maribelkameron OLS Facility:[facility] Start: 12-08-2024 Registered Referred Karon casillas MD -[facility] [employer] Start: 12-08-2024 End: 12-08-2024 ambulatory Mahaveer Mukkamalla OLS Facility:[facility] Start: 12-04-2024 Registered Referred Karon casillas MD -[facility] [employer] Start: 12-04-2024 End: 12-04-2024 ambulatory Mahaveer kkamalla OLS Facility:[facility] Start: 12-02-2024 [facility] Start: 12-02-2024 Registered Referred Karon casillas MD -[facility] [employer] Start: 12-01-2024 ambulatory Carlos NOVAK Faci lity:[facility] Start: 12-01-2024 Registered Referred Carlos Cavazos - [facility] [employer] Start: 11-28-2024 Registered Referred Carlos Cavazos - [facility] [employer] Start: 11-28-2024 End: 11-28-2024 ambulatory Carlso Cavazos OLS Facility:[facility] Start: 11-27-2024 Registered Referred Karon casillas MD -[facility] [employer] Start: 11-27-2024 End: 11-27-2024 ambulatory Karon inga OLS Facility:[facility] Start: 11-24-2024 [facility] Start: 11-24-2024 Registered Referred Karon casillas MD -[facility] [employer] Start: 11-20-2024 Registered Referred Karon casillas MD -[facility] [employer] Start: 11-20-2024 End: 11-20-2024 ambulatory Karon NOVAK Facility:[facility] Start: 11-17-2024 ambulatory Shiela Luís Facili ty:[facility] Start: 11-17-2024 Registered Referred Karon casillas MD -[facility] [employer] Start: 11-13-2024 ambulatory Shiela Luís Facili ty:[facility] Start: 11-13-2024 Registered Referred Karon casillas MD -[facility] [employer] Start: 11-10-2024 [facility] Start: 11-10-2024 Registered Referred Karon casillas MD -[facility] [employer] Start: 11-06-2024 Registered Referred Karon casillas MD -[facility] [employer] Start: 11-06-2024 End: 11-06-2024 ambulatory Karon Corrales OLS Facility:[facility] Start: 11-03-2024 End: 11-03-[address] Monika Staley MD Work Phone: -[facility] [employer] Start: 11-03-2024 End: 11-03-2024 Departed Referred Carlos Maribelkameron -[facility] [employer] Start: 11-03-2024 Registered Referred Carlos Maribelkameron - [facility] [employer] Start: 11-03-2024 End: 11-03-2024 ambulatory Carlso Cavazos OLS Facility:[facility] Start: 10-30-2024 End: 10-30-[address] Monika Staley MD Work Phone: -[facility] [employer] Start: 10-30-2024 End: 10-30-2024 Departed Referred Karon Corrales MD -[facility] [employer] Start: 10-30-2024 Registered Referred Karon casillas MD -[facility] [employer] Start: 10-30-2024 End: 10-30-2024 ambulatory Monika Staley Facility:[facility] Start: 10-27-2024 Registered Referred Karon casillas MD -[facility] [employer] Start: 10-27-2024 End: 10-27-2024 ambulatory Karon NOVAK Facility:[facility] Start: 10-23-2024 Registered Referred Karon casillas MD -[facility] [employer] Start: 10-23-2024 End: 10-23-2024 ambulatory Monika Staley Facility:[facility] Start: 10-20-2024 End: 10-20-[address] Monika Staley MD Work Phone: -[facility] [employer] Start: 10-20-2024 End: 10-20-2024 Departed Referred Karon Corrales MD -[facility] [employer] Start: 10-20-2024 Registered Referred Karon casillas MD -[facility] [employer] Start: 10-20-2024 End: 10-20-2024 ambulatory Karon Corrales OLS Facility:[facility] Start: 10-16-2024 ambulatory Monika Horner Luís Facili ty:[facility] Start: 10-16-2024 Registered Referred Karon casillas MD -[facility] [employer] Start: 10-13-2024 ambulatory Carlos Cavazos OLS Faci lity:[facility] Start: 10-13-2024 Registered Referred Carlos Cavazos - [facility] [employer] Start: 10-09-2024 ambulatory Shiela Luís Facili ty:[facility] Start: 10-09-2024 Registered Referred Karon casillas MD -[facility] [employer] Start: 10-06-2024 ambulatory Carlos Cavazos OLS Faci lity:[facility] Start: 10-06-2024 Registered Referred Carlos Cavazos - [facility] [employer] Start: 10-02-2024 ambulatory Shiela Luís Facili ty:[facility] Start: 10-02-2024 Registered Referred Karon casillas MD -[facility] [employer] Start: 09-30-2024 End: 09-30-[address] Monika Staley MD Work Phone: [facility] Work Phone: Start: 09-30-2024 End: 09-30-2024 Departed Referred Karon Corrales MD -[facility] [employer] Start: 09-30-2024 Registered Referred Karon casillas MD -[facility] [employer] Start: 09-30-2024 End: 09-30-2024 ambulatory Karon NOVAK Facility:[facility] Start: 09-25-2024 ambulatory Karon vidales OLS Facility:[facility] Start: 09-25-2024 Registered Referred Karon ReederTeresita [employer] Start: 09-22-2024 End: 09-22-[address] Monika Staley MD Work Phone: -[facility] [employer] Start: 09-22-2024 End: 09-22-2024 Departed Referred Karon Corrales MD -[facility] [employer] Start: 09-22-2024 Registered Referred Karon casillas MD -[facility] [employer] Start: 09-22-2024 End: 09-22-2024 ambulatory Karon NOVAK Facility:[facility] Start: 09-18-2024 End: 09-18-[address] Monika Staley MD Work Phone: -[facility] [employer] Start: 09-18-2024 End: 09-18-2024 Departed Referred Karon Corrales MD -[facility] [employer] Start: 09-18-2024 Registered Referred Karon casillas MD -[facility] [employer] Start: 09-18-2024 End: 09-18-2024 ambulatory Karon Corrales OLS Facility:[facility] Start: 09-15-2024 End: 09-15-[address] Monika Staley MD Work Phone: [facility] Work Phone: Start: 09-15-2024 End: 09-15-2024 Departed Referred Carlos Cavazos -[facility] [employer] Start: 09-15-2024 Registered Referred Carlos Cavazos - [facility] [employer] Start: 09-15-2024 End: 09-15-2024 ambulatory Carlos Cavazos OLS Facility:[facility] Start: 09-11-2024 ambulatory Karon vidales OLS Facility:[facility] Start: 09-11-2024 Registered Referred Karon casillas MD -[facility] [employer] Start: 09-08-2024 End: 09-08-[address] Monika Staley MD Work Phone: [facility] Work Phone: Start: 09-08-2024 End: 09-08-2024 Departed Referred Karon Corrales MD -[facility] [employer] Start: 09-08-2024 Registered Referred Karon casillas MD -[facility] [employer] Start: 09-08-2024 End: 09-08-2024 ambulatory Karon NOVAK Facility:[facility] Start: 09-04-2024 End: 09-04-2024 Departed Referred Carlos Maribelsaros -[facility] [employer] Start: 09-04-2024 Registered Referred Carlos Maribelsaros - [facility] [employer] Start: 09-04-2024 End: 09-04-2024 ambulatory Carlos NOVAK Facility:[facility] Start: 09-01-2024 End: 09-01-[address] Monika Staley MD Work Phone: [facility] Work Phone: Start: 09-01-2024 End: 09-01-2024 Departed Referred Carlos Lópezsaros -[facility] [employer] Start: 09-01-2024 Registered Referred Carlos Maribelsaros - [facility] [employer] Start: 09-01-2024 End: 09-01-2024 ambulatory Carlos NOVAK Facility:[facility] Start: 08-28-2024 End: 08-28-[address] Monika Staley MD Work Phone: [facility] Work Phone: Start: 08-28-2024 End: 08-28-2024 Departed Referred Carlos Lópezsaros -[facility] [employer] Start: 08-28-2024 Registered Referred Carlos Lópezsaros - [facility] [employer] Start: 08-28-2024 End: 08-28-2024 ambulatory Carlos NOVAK Facility:[facility] Start: 08-25-2024 End: 08-25-[address] Monika Staley MD Work Phone: [facility] Work Phone: Start: 08-25-2024 End: 08-25-2024 Departed Referred Karon Corrales MD -[facility] [employer] Start: 08-25-2024 Registered Referred Karon casillas MD -[facility] [employer] Start: 08-25-2024 End: 08-25-2024 ambulatory Carlaamber Corrales OLS Facility:[facility] Start: 08-21-2024 End: 08-21-[address] Monika Staley MD Work Phone: [facility] Work Phone: Start: 08-21-2024 End: 08-21-2024 Departed Referred Karon Corrales MD -[facility] [employer] Start: 08-21-2024 Registered Referred Karon casillas MD -[facility] [employer] Start: 08-21-2024 End: 08-21-2024 ambulatory Carlaamber NOVAK Facility:[facility] Start: 08-18-2024 End: 08-18-[address] Monika Staley MD Work Phone: [facility] Work Phone: Start: 08-18-2024 End: 08-18-2024 Departed Referred Karon Corrales MD -[facility] [employer] Start: 08-18-2024 Registered Referred Karon casillas MD -[facility] [employer] Start: 08-18-2024 End: 08-18-2024 ambulatory Carlaamber Corrales OLS Facility:[facility] Start: 08-14-2024 End: 08-14-[address] Monika Staley MD Work Phone: [facility] Work Phone: Start: 08-14-2024 End: 08-14-2024 Departed Referred Karon Corrales MD -[facility] [employer] Start: 08-14-2024 Registered Referred Karon casillas MD -[facility] [employer] Start: 08-14-2024 End: 08-14-2024 ambulatory Karon NOVAK Facility:[facility] Start: 08-11-2024 End: 08-11-2024 Departed Referred Karon Corrales MD -[facility] [employer] Start: 08-11-2024 Registered Referred Karon casillas MD -[facility] [employer] Start: 08-11-2024 End: 08-11-2024 ambulatory Karon NOVAK Facility:[facility] Start: 08-07-2024 End: 08-07-2024 Departed Referred Carlos Lópezsaviri -[facility] [employer] Start: 08-07-2024 Registered Referred Carlos Lópezsaviri - [facility] [employer] Start: 08-07-2024 End: 08-07-2024 ambulatory Carlos Cavazos OLS Facility:[facility] Start: 08-04-2024 End: 08-04-[address] Monika Staley MD Work Phone: [facility] Work Phone: Start: 08-04-2024 End: 08-04-2024 Departed Referred Carlos Lópezsaviri -[facility] [employer] Start: 08-04-2024 Registered Referred Carlos Lópezsaros - [facility] [employer] Start: 08-04-2024 End: 08-04-2024 ambulatory Carlos NOVAK Facility:[facility] Start: 07-31-2024 End: 07-31-[address] Monika Staley MD Work Phone: [facility] Work Phone: Start: 07-31-2024 End: 07-31-2024 Departed Referred Karon Corrales MD -[facility] [employer] Start: 07-31-2024 Registered Referred Karon casillas MD -[facility] [employer] Start: 07-31-2024 End: 07-31-2024 ambulatory Karon NOVAK Facility:[facility] Start: 07-28-2024 End: 07-28-[address] Monika Staley MD Work Phone: [facility] Work Phone: Start: 07-28-2024 End: 07-28-2024 Departed Referred Karon Corrales MD -[facility] [employer] Start: 07-28-2024 Registered Referred Karon casillas MD -[facility] [employer] Start: 07-28-2024 End: 07-28-2024 ambulatory Karon NOVAK Facility:[facility] Start: 07-25-2024 End: 07-25-[address] Monika Staley MD Work Phone: [facility] Work Phone: Start: 07-25-2024 End: 07-25-2024 Departed Referred Carlos Cavazos -[facility] [employer] Start: 07-25-2024 Registered Referred Carlos Reeder [facility] [employer] Start: 07-24-2024 End: 07-25-[address] Monika Staley MD Work Phone: [facility] Work Phone: Start: 07-24-2024 End: 07-24-2024 Departed Referred Karon Corrales MD -[facility] [employer] Start: 07-24-2024 Registered Referred Karon casillas MD -[facility] [employer] Start: 07-24-2024 End: 07-24-2024 ambulatory Karon NOVAK Facility:[facility] Start: 07-21-2024 End: 07-21-[address] Monika Staley MD Work Phone: [facility] Work Phone: Start: 07-21-2024 End: 07-21-2024 Departed Referred Karon Corrales MD -[facility] [employer] Start: 07-21-2024 Registered Referred Karon casillas MD -[facility] [employer] Start: 07-21-2024 End: 07-21-2024 ambulatory Karon NOVAK Facility:[facility] Start: 07-17-2024 End: 07-17-[address] Monika Staley MD Work Phone: [facility] Work Phone: Start: 07-17-2024 End: 07-17-2024 Departed Referred Karon Corrales MD -[facility] [employer] Start: 07-17-2024 Registered Referred Karon casillas MD -[facility] [employer] Start: 07-17-2024 End: 07-17-2024 ambulatory Karon NOVAK Facility:[facility] Start: 07-14-2024 End: 07-14-[address] Monika Staley MD Work Phone: [facility] Work Phone: Start: 07-14-2024 End: 07-14-2024 Departed Referred Carlos Cavazos -[facility] [employer] Start: 07-14-2024 Registered Referred Carlos Lópezsaros - [facility] [employer] Start: 07-14-2024 End: 07-14-2024 ambulatory Carlos Cavazos OLS Facility:[facility] Start: 07-11-2024 End: 07-11-[address] Monika Staley MD Work Phone: [facility] Work Phone: Start: 07-11-2024 End: 07-11-2024 Departed Referred Carlos Lópezsaros -[facility] [employer] Start: 07-11-2024 Registered Referred Carlos Lópezsaros - [employer] Start: 07-11-2024 End: 07-11-2024 ambulatory Carlos Cavazos OLS Facility:[facility] Start: 07-07-2024 End: 07-07-[address] Monika Staley MD Work Phone: [facility] Work Phone: Start: 07-07-2024 End: 07-07-2024 Departed Referred Karon Corrales MD -[facility] [employer] Start: 07-07-2024 [facility] Start: 07-07-2024 End: 07-07-2024 ambulatory Karon NOVAK Facility:[facility] Start: 07-03-2024 End: 07-03-[address] Monika Staley MD Work Phone: [facility] Work Phone: Start: 07-03-2024 End: 07-03-2024 Departed Referred Kvng Crisostomo MD -[facility] [employer] Start: 07-03-2024 Registered Referred Kvng Crisostomo MD -[employer] Start: 07-03-2024 End: 07-03-2024 ambulatory Kvng NOVAK Facility:[facility] Start: 06-30-2024 End: 06-30-[address] Monika Staley MD Work Phone: [facility] Work Phone: Start: 06-30-2024 End: 06-30-2024 Departed Referred Kvng Crisostomo MD -[employer] [employer] Start: 06-30-2024 Registered Referred Kvng Crisostomo MD -[employer] Start: 06-30-2024 End: 06-30-2024 ambulatory Kvng NOVAK Facility:[facility] Start: 06-26-2024 ambulatory Kvng NOVAK Fac ility:[facility] Start: 06-26-2024 Registered Referred Kvng Crisostomo MD -[facility] [employer] [place] [employer] Start: 06-23-2024 End: 06-23-[address] Monika Staley MD Work Phone: [facility] Work Phone: Start: 06-23-2024 End: 06-23-2024 Departed Referred Carlos [employer] Start: 06-23-2024 Registered Referred Carlos Cavazos - [employer] Start: 06-23-2024 End: 06-23-2024 ambulatory Carlos NOVAK Facility:[facility] Start: 06-19-2024 End: 06-19-[address] Monika Staley MD Work Phone: [facility] Work Phone: Start: 06-19-2024 End: 06-19-2024 Departed Referred Kvng Crisostomo MD -[facility] [place] [employer] Start: 06-19-2024 Registered Referred Kvng Crisostomo MD -[facility] [place] [employer] Start: 06-19-2024 End: 06-19-2024 ambulatory Monika Staley Facility:[facility] Start: 06-16-2024 End: 06-16-[address] Monika Staley MD Work Phone: [facility] Work Phone: Start: 06-16-2024 End: 06-16-2024 Departed Referred Kvng Crisostomo MD -[facility] [employer] Start: 06-16-2024 Registered Referred Kvng Crisostomo MD -[facility] [employer] Start: 06-16-2024 End: 06-16-2024 ambulatory Monika Staley Facility:[facility] Start: 06-12-2024 End: 06-12-[address] Monika Staley MD Work Phone: [facility] Work Phone: Start: 06-12-2024 End: 06-12-2024 Departed Referred Kvng Crisostomo MD -[facility] [employer] Start: 06-12-2024 Registered Referred Kvng Crisostomo MD -[facility] [employer] Start: 06-12-2024 End: 06-12-2024 ambulatory Kvng NOVAK Facility:[facility] Start: 06-09-2024 End: 06-09-[address] Monika Staley MD Work Phone: [facility] Work Phone: Start: 06-09-2024 End: 06-09-2024 Departed Referred Carlso Cavazos -[employer] Start: 06-09-2024 Registered Referred Carlos Cavazos - [employer] [employer] Start: 06-09-2024 End: 06-09-2024 ambulatory Monika Staley Facility:[facility] Start: 06-05-2024 End: 06-05-[address] Monika Staley MD Work Phone: [facility] Work Phone: Start: 06-05-2024 End: 06-05-2024 Departed Referred Kvng Crisostomo MD -[facility] [employer] Start: 06-05-2024 End: 06-05-2024 ambulatory Kvng NOVAK Facility:[facility] Start: 06-02-2024 End: 06-02-[address] Monika Staley MD Work Phone: [facility] Work Phone: Start: 06-02-2024 End: 06-02-2024 Departed Referred Kvng Crisostomo MD -[facility] [employer] Start: 06-02-2024 Registered Referred Kvng Crisostomo MD -[facility] [employer] Start: 06-02-2024 End: 06-02-2024 ambulatory Kvng NVOAK Facility:[facility] Start: 05-29-2024 End: 05-29-[address] Monika Staley MD Work Phone: [facility] Work Phone: Start: 05-29-2024 End: 05-29-2024 Departed Referred Kvng Crisostomo MD -[facility] [employer] Start: 05-29-2024 Registered Referred Kvng Crisostomo MD -[facility] [place] [employer] Start: 05-29-2024 End: 05-29-2024 ambulatory Kvng NOVAK Facility:[facility] Start: 05-26-2024 End: 05-26-[address] Monika Staley MD Work Phone: [facility] Work Phone: Start: 05-26-2024 End: 05-26-2024 Departed Referred Carlos Cavazos -[employer] Start: 05-26-2024 Registered Referred Carlos Cavazos - [employer] [employer] Start: 05-26-2024 End: 05-26-2024 ambulatory Carlos NOVAK Facility:[facility] Start: 05-22-2024 ambulatory Kvng NOVAK Fac ility:[facility] Start: 05-22-2024 Registered Referred Kvng ReederTe[employer]ita [employer] Start: 05-20-2024 End: 05-20-2024 Departed Referred Kvng ReederTeresita Kathy [employer] Start: 05-19-2024 End: 05-20-2024 ambulatory Kvng NOVAK Facility:[facility] Start: 05-19-2024 Registered Referred Kvng [employer] [employer] Start: 05-15-2024 End: 05-15-2024 Departed Referred Kvng ReederTeresita Kathy [employer] Start: 05-15-2024 End: 05-15-2024 ambulatory Kvng NOVAK Facility:[facility] Start: 05-12-2024 End: 05-12-2024 Departed Referred Carlos [employer]ederTeresita [employer] Start: 05-12-2024 End: 05-12-2024 ambulatory Carlos NOVAK Facility:[facility] Start: 05-09-2024 End: 05-09-2024 Departed Referred Kvng [employer]ederTeresita [employer] Start: 05-09-2024 End: 05-09-2024 ambulatory Kvng NOVAK Facility:[facility] Start: 05-08-2024 End: 05-08-2024 Departed Referred Babbaljeet Crisostomo MD -[employer] [employer] Start: 05-08-2024 End: 05-08-2024 ambulatory Elizabethmilton Andressa NOVAK Facility:[facility] Start: 05-05-2024 End: 05-05-2024 Departed Referred Kvng Crisostomo MD -[employer] [employer] Start: 05-05-2024 End: 05-05-2024 ambulatory Kvng NOVAK Facility:[facility] Start: 05-01-2024 End: 05-01-2024 Departed Referred Kvng Crisostomo MD -[employer] [employer] Start: 05-01-2024 End: 05-01-2024 ambulatory Kvng NOVAK Facility:[facility] Start: 04-28-2024 End: 04-28-2024 Departed Referred Carlos Cavazos -[employer] [employer] Start: 04-28-2024 End: 04-28-2024 ambulatory Carlos NOVAK Facility:[facility] Start: 04-24-2024 End: 04-24-2024 Departed Referred Kvng Crisostomo MD -[employer] [employer] Start: 04-24-2024 End: 04-24-2024 ambulatory Vicentesigifredokarolmilton Andressa NOVAK Facility:[facility] Start: 04-21-2024 End: 04-21-2024 Departed Referred Carlos Cavazos -[employer] Start: 04-21-2024 End: 04-21-2024 ambulatory Carlos NOVAK Facility:[facility] Start: 04-17-2024 ambulatory Vicenteroico Andressa NOVAK Fac ility:[facility] Start: 04-17-2024 Registered Referred Kvng Crisostomo MD -[employer] Start: 04-14-2024 ambulatory Vicenterocio Andressa NOVAK Fac ility:[facility] Start: 04-14-2024 Registered Referred Kvng Crisostomo MD -[employer] Start: 04-10-2024 End: 04-10-2024 Departed Referred Kvng Crisostomo MD -[facility] [employer] Start: 04-10-2024 End: 04-10-2024 ambulatory Kvng Jonesur OLS Facility:[facility] Start: 04-07-2024 End: 04-07-2024 Departed Referred Carlos Cavazos -[employer] [employer] Start: 04-07-2024 End: 04-07-2024 ambulatory Carlos NOVAK Facility:[facility] Start: 04-04-2024 ambulatory Avisgerson Andressa NOVAK Fac ility:[facility] Start: 04-04-2024 Registered Referred Kvng Crisostomo MD -[employer] [employer] Start: 03-31-2024 End: 03-31-2024 Departed Referred Carlos Cavazos -[employer] Start: 03-31-2024 End: 03-31-2024 ambulatory Carlos NOVAK Facility:[facility] Start: 03-27-2024 End: 03-27-2024 Departed Referred [facility] -[employer] [employer] Start: 03-27-2024 End: 03-27-2024 ambulatory [facility] Facility[facility] Start: 03-24-2024 End: 03-24-2024 Departed Referred Kvng Crisostomo MD -[employer] [employer] Start: 03-24-2024 End: 03-24-2024 ambulatory Kvng NOVAK Facility:[facility] Start: 03-20-2024 End: 03-20-2024 Departed Referred [facility] -[facility] [employer] Start: 03-20-2024 End: 03-20-2024 ambulatory [facility] Facility[facility] Start: 03-19-2024 End: 03-19-2024 Departed Referred Kvng Crisostomo MD -[facility] [employer] Start: 03-19-2024 End: 03-19-2024 ambulatory Kvng NOVAK Facility:[facility] Start: 03-18-2024 End: 03-18-2024 Departed Referred [facility] -[employer] Start: 03-17-2024 End: 03-17-2024 Departed Referred [facility] -[employer] [employer] Start: 03-14-2024 End: 03-14-2024 Departed Referred Carlos Cavazos [facility] [employer] Start: 03-13-2024 End: 03-13-2024 Departed Referred [facility] [place] [facility] Start: 09-13-2023 End: 09-13-2023 ambulatory [facility] Start: 09-13-2023 End: 09-13-2023 Office outpatient visit 25 minutes Rebecca Buck MD Work Phone: [facility] Comment on above: Left flank pain (Christina magui Dx); BPH with urinary obstruction; History of kidney stones Start: 09-06-2023 End: 09-07-2023 ambulatory [facility] Start: 09-06-2023 End: 09-06-2023 Subsequent hospital visit by physician Rebecca Buck MD Work Phone: [facility] CT Imaging Comment on above: Left flank pain; Calculus of ureter Start: 08-31-2023 [facility] Start: 08-31-2023 [facility] Start: 08-21-2023 Telephone encounter Rebecca Buck MD Work Phone: [facility] Clinical Communication Comment on above: CT appt Boaz advice Start: 08-21-2023 Registered Referred [facility] [employer] Start: 08-13-2023 End: 08-13-2023 ambulatory [facility] Start: 08-13-2023 End: 08-13-2023 Office outpatient new 45 minutes Rebecca Buck MD Work Phone: [facility] Comment on above: Left flank pain (Christina magui Dx); Calculus of ureter; Disease of prostate; BPH with urinary obstruction Start: 08-03-2023 End: 08-03-2023 ambulatory [facility] Work Phone: Start: 08-03-2023 End: 08-03-2023 Departed Referred [facility] Start: 07-20-2023 End: 07-20-2023 ambulatory [facility] Work Phone: Start: 07-20-2023 End: 07-20-2023 Departed Referred [facility] [employer] Start: 07-20-2023 Registered Referred [facility] [employer] Start: 07-18-2023 End: 07-18-2023 ambulatory [facility] Work Phone: Start: 07-18-2023 End: 07-18-2023 [facility] Start: 07-18-2023 [facility] [place] [facility] Start: 07-16-2023 End: 07-16-2023 ambulatory [facility] Work Phone: Start: 07-16-2023 End: 07-16-2023 [facility] [place] [facility] Start: 07-16-2023 Registered Referred [facility] [employer] Start: 07-13-2023 End: 07-13-2023 ambulatory [facility] Work Phone: Start: 07-13-2023 End: 07-13-2023 [facility] Start: 07-13-2023 Registered Referred [facility] [employer] Start: 07-12-2023 End: 07-12-2023 ambulatory [facility] Work Phone: Start: 07-12-2023 End: 07-12-2023 [facility] [place] [facility] Start: 07-12-2023 Registered Referred [facility] [employer] Start: 07-05-2023 End: 07-05-2023 ambulatory [facility] Work Phone: Start: 07-05-2023 End: 07-05-2023 [facility] Start: 07-05-2023 [facility] Start: 07-02-2023 [facility] Start: 06-28-2023 End: 06-28-2023 ambulatory [facility] Work Phone: Start: 06-28-2023 End: 06-28-2023 [facility] Start: 06-28-2023 [facility] Start: 06-25-2023 Telephone encounter Rebecca Buck MD Work Phone: [facility] Start: 06-25-2023 End: 06-25-2023 ambulatory [facility] Work Phone: Start: 06-25-2023 End: 06-25-2023 [facility] Start: 06-25-2023 [facility] Start: 06-21-2023 End: 06-21-2023 ambulatory [facility] Work Phone: Start: 06-21-2023 End: 06-21-2023 [facility] [place] [facility] Start: 06-21-2023 [facility] Start: 06-13-2023 End: 06-13-2023 ambulatory [facility] Work Phone: Start: 06-13-2023 End: 06-13-2023 [facility] [place] [facility] Start: 06-06-2023 End: 06-06-2023 ambulatory [facility] Work Phone: Start: 06-06-2023 End: 06-06-2023 [facility] [place] [facility] Start: 06-06-2023 [facility] [place] [facility] Start: 05-23-2023 End: 05-23-2023 ambulatory [facility] Work Phone: Start: 05-23-2023 End: 05-23-2023 [facility] [place] [facility] Start: 05-09-2023 End: 05-09-2023 [facility] Start: 05-09-2023 [facility] Start: 04-23-2023 End: 04-23-2023 [facility] Start: 04-09-2023 End: 04-09-2023 ambulatory [facility] Work Phone: Start: 04-09-2023 End: 04-09-2023 [facility] Start: 04-09-2023 [facility] [place] [facility] Start: 04-02-2023 End: 04-02-2023 ambulatory [facility] Work Phone: Start: 04-02-2023 End: 04-02-2023 [facility] Start: 04-02-2023 [facility] [place] [facility] Start: 03-26-2023 End: 03-26-2023 ambulatory [facility] Work Phone: Start: 03-26-2023 End: 03-26-2023 [facility] Start: 03-26-2023 [facility] [place] [facility] Start: 03-22-2023 End: 03-22-2023 ambulatory [facility] Work Phone: Start: 03-22-2023 End: 03-22-2023 [facility] [place] [facility] Start: 03-22-2023 [facility] Start: 03-08-2023 End: 03-08-2023 ambulatory [facility] Work Phone: Start: 03-08-2023 End: 03-08-2023 Departed Referred [facility] [employer] [place] [employer] Start: 02-22-2023 End: 02-22-2023 ambulatory [facility] Work Phone: Start: 02-22-2023 End: 02-22-2023 Departed Referred [facility] [employer] Start: 02-22-2023 [facility] [place] [employer] Start: 02-15-2023 End: 02-15-2023 ambulatory [facility] Work Phone: Start: 02-15-2023 End: 02-15-2023 Departed Referred [facility] [employer] Start: 02-15-2023 Registered Referred [facility] [employer] [place] [employer] Start: 02-08-2023 End: 02-08-2023 ambulatory [facility] Work Phone: Start: 02-08-2023 End: 02-08-2023 Departed Referred [facility] [employer] Start: 01-31-2023 End: 01-31-2023 ambulatory [facility] Work Phone: Start: 01-31-2023 End: 01-31-2023 Departed Referred [facility] [employer] Start: 01-31-2023 Registered Referred [facility] [employer] Start: 01-29-2023 End: 01-29-2023 Departed Referred [facility] [employer] Start: 01-29-2023 [facility] [employer] Start: 01-26-2023 End: 01-26-2023 Departed Referred [facility] [employer] Start: 01-26-2023 [facility] [employer] Start: 01-24-2023 End: 01-24-2023 Departed Referred [facility] [employer] Start: 01-24-2023 Registered [facility] [employer] Start: 01-22-2023 End: 01-22-2023 ambulatory [facility] Work Phone: Start: 01-22-2023 End: 01-22-2023 [facility] Start: 01-22-2023 [facility] Start: 01-10-2023 End: 01-10-2023 ambulatory [facility] Work Phone: Start: 01-10-2023 End: 01-10-2023 [facility] [place] [facility] Start: 01-10-2023 [facility] Start: 12-27-2022 End: 12-27-2022 ambulatory [facility] Work Phone: Start: 12-27-2022 End: 12-27-2022 [facility] Start: 12-27-2022 [facility] [place] [facility] Start: 12-21-2022 End: 12-21-2022 ambulatory [facility] Work Phone: Start: 12-21-2022 End: 12-21-2022 [facility] [place] [facility] Start: 12-21-2022 [facility] Start: 12-14-2022 End: 12-14-2022 ambulatory [facility] Work Phone: Start: 12-14-2022 End: 12-14-2022 [facility] [place] [facility] Start: 12-14-2022 [facility] [place] [facility] Start: 12-07-2022 End: 12-07-2022 ambulatory [facility] Work Phone: Start: 12-07-2022 End: 12-07-2022 [facility] [employer] [place] [facility] Start: 12-07-2022 [facility] [employer] [place] [employer] Start: 11-24-2022 End: 11-24-2022 ambulatory [facility] Work Phone: Start: 11-24-2022 End: 11-24-2022 Departed Referred [facility] [employer] [place] [employer] Start: 11-24-2022 [facility] Start: 11-23-2022 End: 11-23-2022 ambulatory [facility] Work Phone: Start: 11-23-2022 End: 11-23-2022 [facility] Start: 11-23-2022 [facility] [place] [facility] Start: 11-22-2022 End: 11-22-2022 ambulatory [facility] Work Phone: Start: 11-22-2022 End: 11-22-2022 [facility] Start: 11-22-2022 [facility] [employer] [place] [employer] Start: 11-09-2022 End: 11-09-2022 ambulatory [facility] Work Phone: Start: 11-09-2022 End: 11-09-2022 [facility] [employer] [place] [facility] Start: 11-09-2022 [facility] Start: 10-26-2022 End: 10-26-2022 Departed Referred [facility] [employer] Start: 10-26-2022 [facility] [employer] Start: 10-12-2022 End: 10-12-2022 ambulatory [facility] Work Phone: Start: 10-12-2022 End: 10-12-2022 [facility] Start: 10-12-2022 [facility] [employer] [place] [employer] Start: 10-05-2022 End: 10-05-2022 [facility] [employer] [place] [facility] Start: 10-05-2022 Registered Referred [facility] [employer] Start: 09-28-2022 End: 09-28-2022 ambulatory [facility] Work Phone: Start: 09-28-2022 End: 09-28-2022 [facility] [place] [facility] Start: 09-14-2022 End: 09-14-2022 [facility] Start: 08-31-2022 End: 08-31-2022 [facility] [place] [facility] Start: 08-31-2022 [facility] Start: 08-23-2022 End: 08-23-2022 ambulatory [facility] Work Phone: Start: 08-23-2022 End: 08-23-2022 [facility] Start: 08-23-2022 [facility] [place] [facility] Start: 08-17-2022 End: 08-17-2022 ambulatory [facility] Work Phone: Start: 08-17-2022 End: 08-17-2022 [facility] Start: 08-17-2022 Registered Referred [facility] [employer] Start: 08-14-2022 End: 08-14-2022 ambulatory [facility] Work Phone: Start: 08-14-2022 End: 08-14-2022 [facility] Start: 08-14-2022 [facility] [place] [facility] Start: 07-31-2022 End: 07-31-2022 ambulatory [facility] Work Phone: Start: 07-31-2022 End: 07-31-2022 Departed Referred [facility] [employer] Start: 07-31-2022 Registered Referred [facility] [employer] Start: 07-24-2022 End: 07-24-2022 ambulatory [facility] Work Phone: Start: 07-24-2022 End: 07-24-2022 Departed Referred [facility] [employer] Start: 07-24-2022 Registered Referred [facility] [employer] Start: 07-20-2022 End: 07-20-2022 [facility] [employer] [place] [facility] Start: 07-20-2022 [facility] [place] [facility] Start: 07-17-2022 End: 07-17-2022 [facility] Start: 07-17-2022 Registered Referred [facility] [employer] Start: 07-11-2022 Registered Referred [facility] [employer] Start: 07-10-2022 End: 07-10-2022 ambulatory [facility] Work Phone: Start: 07-10-2022 End: 07-10-2022 Departed Referred [facility] [employer] Start: 07-10-2022 Registered Referred [facility] [employer] Start: 07-03-2022 End: 07-03-2022 ambulatory [facility] Work Phone: Start: 07-03-2022 End: 07-03-2022 [facility] Start: 07-03-2022 [facility] Start: 06-27-2022 End: 06-27-2022 ambulatory [facility] Work Phone: Start: 06-27-2022 End: 06-27-2022 [facility] [place] [facility] Start: 06-27-2022 [facility] [place] [facility] Start: 06-13-2022 End: 06-13-2022 ambulatory [facility] Work Phone: Start: 06-13-2022 End: 06-13-2022 [facility] Start: 06-13-2022 [facility] Start: 06-06-2022 End: 06-06-2022 ambulatory [facility] Work Phone: Start: 06-06-2022 End: 06-06-2022 [facility] Start: 06-06-2022 [facility] Start: 05-30-2022 End: 05-30-2022 ambulatory [facility] Work Phone: Start: 05-30-2022 End: 05-30-2022 [facility] [place] [facility] Start: 05-30-2022 [facility] Start: 05-16-2022 End: 05-16-2022 ambulatory [facility] Work Phone: Start: 05-16-2022 End: 05-16-2022 [facility] Start: 05-16-2022 [facility] Start: 05-02-2022 End: 05-02-2022 ambulatory [facility] Work Phone: Start: 05-02-2022 End: 05-02-2022 [facility] Start: 05-02-2022 [facility] Start: 04-27-2022 End: 04-27-2022 ambulatory [facility] Work Phone: Start: 04-27-2022 End: 04-27-2022 Departed Referred [facility] [employer] [place] [facility] Start: 04-27-2022 Registered Referred [facility] Start: 04-26-2022 End: 04-26-2022 ambulatory [facility] Work Phone: Start: 04-26-2022 End: 04-26-2022 Departed Referred [facility] Start: 04-11-2022 End: 04-11-2022 ambulatory [facility] Work Phone: Start: 04-11-2022 End: 04-11-2022 Departed Referred [facility] Start: 03-28-2022 End: 03-28-2022 Departed Referred [facility] Start: 03-28-2022 Registered Referred [facility] Start: 03-23-2022 End: 03-23-2022 Departed Referred [facility] [place] [facility] Start: 03-23-2022 Registered Referred [facility] Start: 03-16-2022 End: 03-16-2022 ambulatory [facility] Work Phone: Start: 03-16-2022 End: 03-16-2022 Departed Referred [facility] Start: 03-16-2022 Registered Referred [facility] [place] [facility] Start: 03-09-2022 End: 03-09-2022 ambulatory [facility] Work Phone: Start: 03-09-2022 End: 03-09-2022 [facility] Start: 03-09-2022 Registered Referred [facility] [place] [facility] Start: 03-06-2022 End: 03-06-2022 ambulatory [facility] Work Phone: Start: 03-06-2022 End: 03-06-2022 [facility] Start: 03-06-2022 [facility] Start: 03-02-2022 End: 03-03-2022 Emergency department patient visit UNKNOWN PROVIDER [facility] Start: 03-02-2022 End: 03-02-2022 Emergency department patient visit Lanette Munguia DO Work Phone: [facility] Emergency Dept Comment on above: Fall, initial encoun ter (Primary Dx); Anticoagulated Start: 02-20-2022 End: 02-20-2022 Departed [facility] Start: 02-20-2022 Registered Referred [facility] Start: 02-13-2022 End: 02-13-2022 ambulatory [facility] Work Phone: Start: 02-13-2022 End: 02-13-2022 Departed Referred [facility] Start: 02-13-2022 [facility]istered [facility] [place] [facility] Start: 02-06-2022 End: 02-06-2022 ambulatory [facility] Work Phone: Start: 02-06-2022 End: 02-06-2022 [facility] [place] [facility] Start: 02-06-2022 [facility]istered [facility] Start: 01-30-2022 End: 01-30-2022 [facility] [place] [facility] Start: 01-30-2022 Registered [facility] Start: 01-26-2022 End: 01-26-2022 ambulatory [facility] Work Phone: Start: 01-26-2022 End: 01-26-2022 [facility] [place] [facility] Start: 01-26-2022 Registered [facility] [place] [facility] Start: 01-19-2022 End: 01-19-2022 ambulatory [facility] Work Phone: Start: 01-19-2022 End: 01-19-2022 [facility] Start: 01-19-2022 [facility] Start: 01-17-2022 ambulatory [facility] Start: 01-10-2022 [facility] Start: 01-10-2022 End: 01-10-2022 ambulatory [facility] Work Phone: Start: 01-10-2022 End: 01-10-2022 [facility] [place] [facility] Start: 01-10-2022 [facility] Start: 01-06-2022 AUDIT Monika Elias rt Work Phone: [facility] Work Phone: Start: 01-05-2022 End: 01-05-2022 [facility] Start: 01-05-2022 [facility] Start: 12-30-2021 End: 12-30-2021 [facility] Start: 12-30-2021 [facility] Start: 12-28-2021 End: 12-28-2021 ambulatory [facility] Work Phone: Start: 12-28-2021 End: 12-28-2021 [facility] Start: 12-28-2021 [facility] Start: 12-26-2021 End: 12-26-2021 ambulatory [facility] Work Phone: Start: 12-26-2021 End: 12-26-2021 [facility] Start: 12-26-2021 Registered Referred [facility] Start: 12-22-2021 End: 12-22-2021 ambulatory [facility] Work Phone: Start: 12-22-2021 End: 12-22-2021 Departed Referred [facility] Start: 12-22-2021 Registered Ref[facility] Start: 12-22-2021 End: 12-22-2021 Emergency department patient visit [facility]ON [facility] Start: 12-21-2021 End: 12-22-2021 Emergency department patient visit Sharon Olivia MD Work Phone: [facility] Emergency Dept Comment on above: Heel ulceration, lef t, with unspecified severity (HCC) (Primary Dx) Start: 12-19-2021 End: 12-19-2021 ambulatory [facility] Work Phone: Start: 12-19-2021 End: 12-19-2021 Departed Referred [facility] Start: 12-19-2021 Registered Referred [facility] [place] [facility] Start: 12-12-2021 End: 12-12-2021 ambulatory [facility] Work Phone: Start: 12-12-2021 End: 12-12-2021 Departed Referred [facility] Start: 12-12-2021 Registered Referred [facility] Start: 12-08-2021 End: 12-08-2021 ambulatory [facility] Work Phone: Start: 12-08-2021 End: 12-08-2021 Departed Referred [facility] Start: 12-08-2021 Registered Referred [facility] Start: 12-05-2021 End: 12-05-2021 ambulatory [facility] Work Phone: Start: 12-05-2021 End: 12-05-2021 [facility] Start: 12-05-2021 [facility] Start: 12-01-2021 End: 12-01-2021 [facility] Start: 12-01-2021 [facility] Start: 11-28-2021 End: 11-28-2021 [facility] Start: 11-28-2021 [facility] Start: 11-25-2021 Rx Renewal Monika Elias rt Work Phone: [facility] Work Phone: Start: 11-23-2021 End: 11-23-2021 [facility] [place] [facility] Start: 11-23-2021 [facility] Start: 11-22-2021 End: 11-22-2021 [facility] Start: 11-22-2021 [facility] Start: 11-21-2021 End: 11-21-2021 [facility] Start: 11-15-2021 AUDIT Monika Elias rt Work Phone: [facility] Work Phone: Start: 11-14-2021 End: 11-14-2021 [facility] Start: 11-14-2021 [facility] Start: 11-08-2021 End: 11-08-2021 [facility] Start: 11-08-2021 [facility] Start: 11-04-2021 End: 11-04-2021 Departed Referred [email or web address] Start: 11-04-2021 Registered Referred [email or web address] [facility] Start: 10-31-2021 End: 11-01-2021 Emergency department patient visit UNKNOWN PROVIDER [facility] Start: 10-31-2021 End: 11-01-2021 Emergency department patient visit Dante Kim MD Work Phone: [facility] Emergency Dept Comment on above: Other fatigue (Prima ry Dx) Start: 10-31-2021 End: 10-31-2021 Departed Referred [email or web address] [facility] Start: 10-21-2021 End: 10-29-2021 Evaluation and management of inpatient UNKNOWN PROVIDER [facility] Start: 10-21-2021 End: 10-29-2021 Evaluation and management of inpatient Lisa Michelle DO Work Phone: [facility] Comment on above: Leg swelling (Primar y Dx); Acute deep vein thrombosis (DVT) of proximal vein of lower extremity, unspecified laterality (HCC) Start: 10-20-2021 End: 10-20-2021 Departed Referred [email or web address] [facility] Start: 10-17-2021 Telephone encounter Nicole davis MD Work Phone: [facility] Comment on above: Missed Appointment Start: 09-19-2021 End: 09-19-2021 Departed Referred [facility] [employer] [facility] Start: 11-02-2020 AUDIT Monika Elias rt Work Phone: [facility] Work Phone: Start: 10-27-2020 AUDIT Monika Elias rt Work Phone: [facility] Work Phone: Start: 07-13-2020 Patient encounter procedure Monika Staley [facility] Work Phone: Start: 04-13-2020 Patient encounter procedure Wing Ritter [facility] Work Phone: Start: 04-07-2020 Patient encounter procedure Wing Ritter [facility] Work Phone: Start: 03-18-2020 Patient encounter procedure Wing Ritter 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] Start: 11-06-2019 Patient encounter procedure Monika Staley MD ZO-Kxiragrbgc-Nyktm Work Phone: Start: 06-18-2019 End: 06-18-2019 Subsequent [...] Start: 10-31-2021 Radiologic exam abdomen 1 view Mryon Duran MD Work Phone: Start: 10-31-2021 Radiologic [...] Start: 10-26-2021 Electroencephalogram w/rec awake&asleep Sarina Pineda INDUSTRIAL HYGIENE MANAGER - [employer]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 Work Phone: Start: 10-26-2021 Ct head/brain w/o co ntrast material Sarina Pineda INDUSTRIAL HYGIENE MANAGER - [employer]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 Work Phone: Start: 10-26-2021 Prothrombin time Andres Sheridan MD Work Phone: Start: 10-25-2021 Speech and language therapy regime Sarina Pineda INDUSTRIAL HYGIENE MANAGER - [employer]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 Work Phone: Start: 10-25-2021 Prothrombin time [...] count reticulo cyte automated Ellen Massey Niesha INDUSTRIAL HYGIENE MANAGER - S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 Work Phone: Start: 10-21-2021 C-reactive protein Jax Scherer INDUSTRIAL HYGIENE MANAGER - [employer]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 Work Phone: Start: 10-21-2021 Non-invas physiologi c std extremity art 2 level Shruthi Malik INDUSTRIAL HYGIENE MANAGER - [employer]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 Work Phone: Start: 10-21-2021 Radex calcaneus mini mum 2 views Shruthi Malik INDUSTRIAL HYGIENE MANAGER - S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 Work Phone: Start: 10-21-2021 Dup-scan xtr [...] Comment: Speci men Type: BLOOD SPECIMENOrdering Facility: [facility] Address: [address] [place] [address] Performed By: #### T SCR ####[facility] BLOOD BANKCLIA [id number] [address] Start: 08-04-2021 Antibody screen Comment on above: Order Comment: Speci men Type: BLOOD SPECIMENOrdering Facility: [facility] Address: [address] [place] [address] Performed By: #### T SCR ####[facility] BLOOD BANKCLIA [id number] [address] Start: 08-01-2021 Antibody screen Comment on above: Order Comment: Speci men Type: BLOOD SPECIMENOrdering Facility: [facility] Address: [facility] [place] [address] Performed By: #### T SCR ####[facility] BLOOD BANKCLIA [id number] [place] [address] [facility] Start: 06-07-2021 Antibody screen Comment on above: Order Comment: Speci men Type: BLOOD SPECIMEN Performed By: #### T SCR ####[facility] BLOOD BANKCLIA [id number] [place] [address] [facility] Start: 09-02-2020 Lipid 1996 panel - S bradly or Plasma Rebecca Buck MD Work Phone: Start: 04-07-2020 Echocardiography Wing Ritter Start: 11-13-2019 Radiologic examinati on tibia & fibula 2 views Soheila Arellnao (Kim) Debbie Work Phone: Hernia repair Monika melvin History of Cholecystotomy An yvette Staley History of Creation Of Subdural-Peritoneal CSF Shunt Monika Staley History of Interrupt ion Inferior Vena Cava [place] Filter Placement Monika Staley Urine culture Plan of Treatment Date Care Activity Detail Author Start: 09-22-2026 DTaP/Tdap/Td vaccine (2 - Td or Tdap) DTaP/Tdap/Td vaccine (2 - Td or Tdap) [facility] Start: 09-22-2026 DTaP/Tdap/Td vaccine (2 - Td) DTaP/Tdap/Td vaccine (2 - Td) [facility] Work Phone: Start: 09-22-2026 DTaP/Tdap/Td Vaccine s (2 - Td or Tdap) DTaP/Tdap/Td Vaccines (2 - Td or Tdap) [facility] Start: 09-02-2025 Lipid panel Lipid Panel [facility] Start: 03-02-2025 Registered Referred Registered Refer red -[facility]ita [email or web address] [facility] Start: 02-26-2025 Registered Referred Registered [facility]er [facility] [email or web address] [facility] Start: 02-23-2025 Registered Referred Registered Refer [facility] [email or web address] [facility] Start: 02-19-2025 Registered Referred Registered Refer [facility] Start: 02-16-2025 Registered Referred Registered Refer [facility] [email or web address] [facility] Start: 08-22-2024 DIABETES SCREEN DIABETES SCREEN [facility] Start: 12-04-2023 Lipid panel Lipids [facility] Start: 12-04-2023 Lipid screen Lipid screen [facility] Work Phone: Start: 09-13-2023 End: 09-13-2023 Patient encounter procedure 09/13/2023 11:30 AM EDT Office Visit [facility] [address] [place] [id number] Rebecca Buck MD [address] [place], [place] [id number] [facility] Start: 08-31-2023 End: 08-31-2023 Patient encounter procedure 08/31/2023 9:30 AM EDT Appointment [facility] [address] [place] [phone] Rebecca Buck MD [address] [place] [address] [facility] Start: 08-13-2023 End: 08-12-2024 Basic metabolic 1998 panel - Serum or Plasma Basic metabolic panel Lab Routine Calculus of ureter Expected: 08/13/2023 (Approximate), Expires: 08/12/2024 [facility] Comment on above: Expected: 08/13/2023 (Approximate), Expires: 08/12/2024 Start: 08-13-2023 End: 08-12-2024 CT Abdomen WO contrast CT abdomen pelvis wo IV contrast Imaging Routine Left flank pain Calculus of ureter Expected: 08/13/2023, Expires: 08/12/2024 [facility] Comment on above: Expected: 08/13/2023 , Expires: 08/12/2024 Start: 08-13-2023 End: 02-12-2024 PSA, Monitoring ([facility]) PSA, Monitoring ([facility]) Lab Routine Disease of prostate Expected: 08/13/2023 (Approximate), Expires: 02/12/2024 [facility] Work Phone: Comment on above: Expected: 08/13/2023 (Approximate), Expires: 02/12/2024 Start: 08-13-2023 End: 08-13-2023 Patient encounter procedure 08/13/2023 10:00 AM EDT Office Visit [facility] [address] [place] [phone] Rebecca Buck MD [address] [place] [address] [facility] Start: 07-17-2023 Bacteria identified in Urine by Culture [facility] Start: 07-17-2023 [facility] Start: 07-16-2023 Measurement of substance [facility] Start: 05-07-2023 Medicare Advantage A nnual Wellness Visit Medicare Advantage Annual Wellness Visit [facility] Start: 03-02-2023 Creatinine measurement Creatinine Le carmela [facility] Start: 03-02-2023 Potassium measurement Potassium Leve l [facility] Start: 08-22-2022 Diabetes mellitus screening Diabetes Screening [facility] Start: 01-05-2022 Influenza vaccination S [facility] Start: 12-23-2021 EPV, Provider: Wing Ritter, Status: Pen, Time: 9:30 AM EPV, Provider: Wing Ritter, Status: Pen, Time: 9:30 AM EV-Mafwhbgupt-Ghz ma Work Phone: Start: 12-05-2021 Influenza vaccination Flu vaccine (# 1) [facility] Start: 12-05-2021 Blood chemistry [facility] Work Phone: Start: 12-05-2021 Complete blood count [facility] Work Phone: Start: 12-05-2021 [facility] Work Phone: Start: 12-01-2021 [facility] Work Phone: Start: 08-05-2021 COVID-19 VACCINE (4 - Booster for Moderna series) COVID-19 VACCINE (4 - Booster for Moderna series) [facility] Start: 08-05-2021 COVID-19 Vaccine (4 - Booster for Pfizer series) COVID-19 Vaccine (4 - Booster for Pfizer series) [facility] Start: 06-01-2021 COVID-19 Vaccine (4 - Booster for Pfizer series) COVID-19 Vaccine (4 - Booster for Pfizer series) [facility] Start: 05-07-2021 ADVANCE DIRECTIVE DISCUSSION ADVANCE DIRECTIVE DISCUSSION [facility] Start: 08-11-2020 Screening for malign ant neoplasm of colon [facility] Start: 07-30-2020 Screening for malign ant neoplasm of colon [facility] Start: 01-20-2020 Echocardiography Echocardiogram MP-C ardiology-Med [facility] [address] [place] Work Phone: Start: 01-06-2020 Influenza vaccination INFLUENZA (#1) [facility] Start: 12-04-2019 Annual Wellness Visi t (AWV) Annual Wellness Visit (AWV) [facility] Start: 12-04-2019 Creatinine monitoring Creatinine mon itoring [facility] Work Phone: Start: 12-04-2019 Hepatitis C screen Hepatitis C scree n [facility] Work Phone: Comment on above: Postponed from 05/06 (Patient Refused) Start: 12-04-2019 Potassium monitoring Potassium monit oring [facility] Work Phone: Start: 12-04-2019 Prostate specific an tigen measurement Prostate Specific Antigen (PSA) Screening or Monitoring [facility] Start: 12-04-2019 Shingles Vaccine (1 of 2) Day gles Vaccine (1 of 2) [facility] Work Phone: Comment on above: Postponed from 05/06 (Patient Refused) Start: 06-07-2019 Colon Cancer Screen FIT/FOBT [facility] Work Phone: Start: 08-14-2017 LIPID SCREEN LIPID SCREEN [facility] Start: 2017 ADVANCE DIRECTIVE DISCUSSION ADVANCE DIRECTIVE DISCUSSION [facility] Start: 2017 PNEUMOCOCCAL: 65+ (1 - PCV) PNEUMOCOCCAL: 65+ (1 - PCV) [facility] Start: 2017 PNEUMOVAX AGE 65 AND OVER WITH 5YR LOOKBACK (#1) PNEUMOVAX AGE 65 AND OVER WITH 5YR LOOKBACK (#1) [facility] Start: 04-14-2016 DIABETES SCREEN DIABETES SCREEN [facility] Start: 2012 RSV Immunization age d 60 or older (1 - 1-dose 60+ series) RSV Immunization aged 60 or older (1 - 1-dose 60+ series) [facility] Start: 2007 PROSTATE CANCER SCRE ENING DISCUSSION PROSTATE CANCER SCREENING DISCUSSION [facility] Start: 2002 Shingles vaccine (1 of 2) Day gles vaccine (1 of 2) [facility] Start: 2002 SHINGRIX VACCINE (1 of 2) DAY GRIX VACCINE (1 of 2) [facility] Start: 2002 Tuberculosis screening COLOREC MONIQUE CANCER SCREENING,SEE MODIFIER [facility] Start: 2002 Zoster Vaccines (1 of 2) Zoste r Vaccines (1 of 2) [facility] Start: 1997 COLOGUARD (FIT-DNA) COLOGUARD (FIT-D NA) [facility] Start: 1997 Colonoscopy COLONOSCOPY [facility] Start: 1997 COLORECTAL CANCER SCREENING COLORECTAL CANCER SCREENING [facility] Start: [address] COLONOGRAPHY [facility] Start: 1997 FECAL OCCULT BLOOD FECAL OCCULT BLOO D [facility] Start: 1997 Screening for malign ant neoplasm of colon [facility] Start: [address] [facility] Start: 1987 Diabetes screen Diabetes screen [facility] Start: 1971 Urine microalbumin profile DTAP,TDAP,TD (1 - Tdap) [facility] Start: 1970 ANNUAL PCP TEAM FAMILY PRESERVATION WORKER KEESHA DISEASE VISIT ANNUAL PCP TEAM CHRONIC DISEASE VISIT [facility] Start: 1970 BP CONTROLLED (<130/80) BP CONTROLLE D (<130/80) [facility] Start: 1970 Diabetes mellitus screening Diabetes Screening [facility] Start: 1970 HEPATITIS C SCREENING HEPATITIS C JOBY VILLARREAL [facility] Start: 1970 Hepatitis C screening [facility] Start: 1964 Adult depression screening assessment DEPRESSION SCREENING [facility] Start: 1964 Depression Screen Depression Screen [facility] Start: 1962 Diabetic foot examination Diabetes: Foot Exam [facility] Start: 1962 Glaucoma screening Diabetes: R etinopathy Screening [facility] Start: 1962 Preventive dental service Diabetes: Dental Exam [facility] Start: 1952 Echocardiography Echocardiogram [facility] Start: 1952 Hemoglobin A1c measurement Diabetes: Hemoglobin A1C [facility] Start: 1952 Lipid panel Lipid Panel [facility] Start: 1952 Screening for malign ant neoplasm of colon [facility] Bacteria identified in Urine by Culture [facility] [facility] Work Phone: End: 03-02-2022 CBC W Auto Differential panel - Blood CBC with Auto Differential Lab Routine One Time for 1 Occurrences starting 03/02/2022 until 03/02/2022 [facility]: Comment on above: One Time for 1 Occur rences starting 03/02/2022 until 03/02/2022 End: 03-02-2022 Comprehensive metabolic 2000 panel - Serum or Plasma Comprehensive Metabolic Panel Lab STAT One Time for 1 Occurrences starting 03/02/2022 until 03/02/2022 [facility] Work Phone: Comment on above: One Time for 1 Occur rences starting 03/02/2022 until 03/02/2022 End: 09-06-2023 CT Abdomen WO contrast [facility] Work Phone: Comment on above: Once for 1 Occurrenc es starting 09/06/2023 until 09/06/2023 End: 12-22-2021 Culture, Blood 2 Culture, Blood 2 Microbiology STAT One Time for 1 Occurrences starting 12/22/2021 until 12/22/2021 [facility] Work Phone: Comment on above: One Time for 1 Occur rences starting 12/22/2021 until 12/22/2021 End: 12-22-2021 Microscopic examination of blood, culture Culture, Blood Microbiology STAT One Time for 1 Occurrences starting 12/22/2021 until 12/22/2021 [facility] Work Phone: Comment on above: One Time for 1 Occur rences starting 12/22/2021 until 12/22/2021 Microscopic examinat ion of blood, culture Culture, Blood Microbiology STAT 12/22/2021 12:22 AM EDT [facility] Work Phone: Oxygen therapy [[facility] Data Set] Initiate Oxygen Therapy Protocol Respiratory Care Routine As Needed until discontinued starting 10/21/2021 [facility] Comment on above: As Needed until disc ontinued starting 10/21/2021 Protime-INR Protime-INR Lab Routine Daily until discontinued starting 10/23/2021, 7 completed [facility] Work Phone: Comment on above: Daily until disconti nued starting 10/23/2021, 7 completed End: 03-02-2022 Protime-INR Protime-INR Lab Routine One Time for 1 Occurrences starting 03/02/2022 until 03/02/2022 [facility] Work Phone: Comment on above: One Time for 1 Occur rences starting 03/02/2022 until 03/02/2022 Spirometry panel Incentive stef metry Respiratory Care Routine Daily until discontinued starting 10/21/2021 [facility] Work Phone: Comment on above: Daily until disconti nued starting 10/21/2021 End: 10-21-2021 Wound ostomy eval Wound ostomy eval Wound Ostomy Routine One Time for 1 Occurrences starting 10/21/2021 until 10/21/2021 [facility] Work Phone: Comment on above: One Time for 1 Occur rences starting 10/21/2021 until 10/21/2021 [facility] NEGATED: Highlighted row has been ruled out! Planned Goals not documented [facility] Work Phone: Immunizations Immunization Date Immunization Notes Care Provider Fa cili 03-04-2019 influenza, high dose seasonal, preservative-free Sarika Salas [facility] 12-03-2018 pneumococcal polysac charide vaccine, 23 valent Sarika Salas [facility] Work Phone: 01-25-2018 influenza, high dose seasonal, [...] Phone: Payers Date Payer Category Payer Unknown [id number] 03-19-2024 Self-pay 01-05-2022 Medicaid 01-05-2022 Medicare 01-05-2022 Medicare [id number] 10-05-2021 Medicaid [id number]. 2.7.3.912797.315 06-07-2021 Medicare UHC MEDICARE UHC DUAL COMPLETE HMO SNP [id number] 06/07/2021-Present [phone] [address] [place] [address] Medicare [id number] [id number]. 2.7.3.670762.315 06-07-2021 Medicare UHC MEDICARE UNITEDHEALTHCARE DUAL COMPLETE [id number] 06/07/2021-Present [phone] [address] [place] [address] [id number] 1.2.840.383826.1.13.239. 2.7.3.282854.315 11-05-2019 Medicare UHC AARP MEDICAR E [facility] AARP MEDICARE HMO [id number] 11/05/2019-Present O [id number] 1.2.840.816499.1.13.159. 2.7.3.972743.315 07-06-2015 Medicare UHC MEDICARE UHC MEDICARE COMPLETE xxxxxxxxx 2015-Present xxxxxxxxx 1.2.840.296756.1.13.239. 2.7.3.238213.315 1950 Unknown [id number] 2.16.840.1.810068.3.579. 2.668 1950 Unknown [id number] 2.16.840.1.129943.3.579. 2.668 1950 Unknown [id number] 2.840.1.618467.3.579. 2.6605-06-1950 Unknown [id number] 2.16.840.1.377100.3.579. 2.8 1950 Unknown [id number] 2.840.1.310336.3.579. 2.05-06-1950 Unknown [id number] 2.840.1.971871.3.579. 2.668 1950 Unknown [id number] 2.840.1.271755.3.579. 2.668 Private Health Insurance Unknown Unknown [id number] 2.840.1.507058.3.579. 2.462 Unknown [id number] 2.840.1.698543.3.579. 2.462 Unknown [id number] 2.840.1.992470.3.579. 2.462 Unknown [id number] 2.840.1.942262.3.579. 2.462 Unknown [id number] 2.16840.1.511746.3.579. 2.462 Unknown [id number] 2.16.840.1.897561.3.579. 2.462 Unknown [id number] 2.16.840.1.742208.3.579. 2.462 Unknown [id number] 2.16.840.1.919307.3.579. 2.462 Unknown [id number] 2.840.1.819491.3.579. 2.462 Unknown [id number] 2.16.840.1.473951.3.579. 2.462 Unknown [id number] 2.16.840.1.130485.3.579. 2.462 Unknown [id number] 2.16.840.1.160715.3.579. 2.462 Unknown [id number] 2.16.840.1.899978.3.579. 2.462 Unknown [id number] 2.16.840.1.802973.3.579. 2.462 Unknown [id number] 2.16.840.1.623910.3.579. 2.462 Unknown [id number] 2.840.1.656060.3.579. 2.462 Unknown [id number] 2.840.1.287559.3.579. 2.462 Unknown [id number] 2..840.1.811152.3.579. 2.462 Unknown [id number] 2.840.1.024446.3.579. 2.462 Unknown [id number] 2.840.1.177420.3.579. 2.462 Unknown [id number] 2.16.840.1.696426.3.579. 2.462 Unknown [id number] 2.16.840.1.017591.3.579. 2.462 Unknown [id number] 2..840.1.054865.3.579. 2.462 Unknown [id number] 2.16.840.1.897308.3.579. 2.462 Unknown [id number] 2.16.840.1.676992.3.579. 2.462 Unknown [id number] 2.16.840.1.231289.3.579. 2.462 Unknown [id number] 2.16.840.1.383268.3.579. 2.462 Unknown [id number] 2.16840.1.327488.3.579. 2.462 Unknown [id number] 2.16.840.1.236189.3.579. 2.462 Unknown [id number] 2.16840.1.373518.3.579. 2.462 Unknown [id number] 2.16.840.1.731752.3.579. 2.462 Unknown [id number] 2.16840.1.086562.3.579. 2.462 Unknown [id number] 2.16840.1.758168.3.579. 2.462 Unknown [id number] 2.840.1.745334.3.579. 2.462 Unknown [id number] 2.840.1.937040.3.579. 2.462 Unknown [id number] 2.840.1.132716.3.579. 2.462 Unknown [id number] 2.840.1.766621.3.579. 2.462 Unknown [id number] 2.840.1.054172.3.579. 2.462 Unknown [id number] 2.840.1.781468.3.579. 2.462 Unknown [id number] 2.840.1.542778.3.579. 2.462 Unknown [id number] 2.840.1.304396.3.579. 2.462 Unknown [id number] 2.840.1.104832.3.579. 2.462 Unknown [id number] 2.840.1.122096.3.579. 2.462 Unknown [id number] 2.840.1.245889.3.579. 2.462 Unknown [id number] 2.840.1.916801.3.579. 2.462 Unknown [id number] 2.16840.1.921888.3.579. 2.462 Unknown [id number] 2.16.840.1.817203.3.579. 2.462 Unknown [id number] 2.16.840.1.996066.3.579. 2.462 Unknown [id number] 2.16.840.1.523924.3.579. 2.462 Unknown [id number] 2.16.840.1.851546.3.579. 2.462 Unknown [id number] 2.16.840.1.624776.3.579. 2.462 Unknown [id number] 2.16.840.1.948785.3.579. 2.462 Unknown [id number] 2.16.840.1.487809.3.579. 2.462 Unknown [id number] 2.16.840.1.883507.3.579. 2.462 Unknown [id number] 2.16.840.1.056518.3.579. 2.462 Unknown [id number] 2.16.840.1.776953.3.579. 2.462 Unknown [id number] 2.16.840.1.980901.3.579. 2.462 Unknown [id number] 2.16.840.1.068366.3.579. 2.462 Unknown [id number] 2.16.840.1.762551.3.579. 2.462 Unknown [id number] 2.16.840.1.883361.3.579. 2.462 Unknown [id number] 2.16.840.1.620368.3.579. 2.462 Unknown [id number] 2.16.840.1.890006.3.579. 2.462 Unknown [id number] 2.16.840.1.167492.3.579. 2.462 Unknown [id number] 2.16.840.1.536080.3.579. 2.462 Unknown [id number] 2.16.840.1.198590.3.579. 2.462 Unknown [id number] 2.16.840.1.837812.3.579. 2.462 Unknown [id number] 2.16.840.1.108510.3.579. 2.462 Unknown [id number] 2.16.840.1.063919.3.579. 2.462 Unknown [id number] 2.16.840.1.726621.3.579. 2.462 Unknown [id number] 2.16.840.1.569972.3.579. 2.462 Unknown [id number] 2.16.840.1.845545.3.579. 2.462 Unknown [id number] 2.16.840.1.351386.3.579. 2.462 Unknown [id number] 2.16.840.1.673105.3.579. 2.462 Unknown 09527936 2.16.840.1.073888.3.579. 2.462 Unknown 60471224 2.16.840.1.736707.3.579. 2.462 Unknown 72466544 2.16.840.1.660003.3.579. 2.462 Unknown 37701714 2.16.840.1.168548.3.579. 2.462 Unknown 87467158 2.16.840.1.344795.3.579. 2.462 Unknown 57494068 2.16.840.1.124441.3.579. 2.462 Unknown 88440454 2.16.840.1.159070.3.579. 2.462 Unknown 70477339 2.16.840.1.967639.3.579. 2.462 Unknown 12064394 2.16.840.1.362025.3.579. 2.462 Unknown 74442728 2.16.840.1.588763.3.579. 2.462 Unknown 82049455 2.16.840.1.747331.3.579. 2.462 Unknown 93087259 2.16.840.1.372336.3.579. 2.462 Unknown 26126583 2.16.840.1.141221.3.579. 2.462 Unknown 60366805 2.16.840.1.341437.3.579. 2.462 Unknown 05069964 2.16.840.1.905339.3.579. 2.462 Unknown 23057227 2.16.840.1.169969.3.579. 2.462 Unknown 51021841 2.16.840.1.843107.3.579. 2.462 Unknown [id number] 2.16.840.1.225298.3.579. 2.462 Unknown [id number] 2.16.840.1.329463.3.579. 2.462 Unknown [id number] 2.16.840.1.055891.3.579. 2.462 Unknown 13917043 2.16.840.1.548207.3.579. 2.462 Unknown [id number] 2.16.840.1.112083.3.579. 2.462 Unknown 34290353 2.16.840.1.031577.3.579. 2.462 Unknown 10539251 2.16.840.1.394135.3.579. 2.462 Unknown 90813930 2.16.840.1.827926.3.579. 2.462 Unknown 94810134 2.16.840.1.827911.3.579. 2.462 Unknown 66043994 2.16.840.1.413655.3.579. 2.462 Unknown 24923194 2.16.840.1.323165.3.579. 2.462 Unknown 44804582 2.16.840.1.405475.3.579. 2.462 Unknown 01252405 2.16.840.1.950514.3.579. 2.462 Unknown 25368830 2.16.840.1.560813.3.579. 2.462 Unknown 03447724 2.16.840.1.852583.3.579. 2.462 Unknown 75586331 2.16.840.1.194760.3.579. 2.462 Unknown 94633294 2.16.840.1.482789.3.579. 2.462 Unknown 88828371 2.16.840.1.135461.3.579. 2.462 Unknown 81825215 2.16.840.1.194015.3.579. 2.462 Unknown 80823808 2.16.840.1.194295.3.579. 2.462 Unknown 18709397 2.16.840.1.513009.3.579. 2.462 Unknown 28317010 2.16.840.1.255794.3.579. 2.462 Unknown 42340866 2.16.840.1.527266.3.579. 2.462 Unknown [id number] 2.16.840.1.808279.3.579. 2.462 Unknown [id number] 2.16.840.1.378193.3.579. 2.462 Social History Date Type Detail Facility Start: 05-23-2018 End: 05-19-2019 Tobacco smoking status MNIS Former smoker [facility] Work Phone: History of tobacco use Cigar Smoker [facility] Work Phone: Start: 05-19-2019 End: 08-13-2023 Cigarettes smoked current (pack per day) - Reported [facility] Work Phone: Start: 05-19-2019 End: 08-13-2023 Alcohol intake Current non-drinker of alcohol (finding) [facility] Work Phone: Start: 12-03-2018 History SDOH Physica l Activity DPW 7 [facility] Work Phone: Start: 12-03-2018 History SDOH Physica l Activity MPS 9 [facility] Work Phone: Start: 12-03-2018 End: 10-31-2021 History SDOH Stress 1 [facility] Work Phone: Start: 12-03-2018 History SDOH Financial 5 [facility] Work Phone: Start: 12-03-2018 History SDOH Transpo rt Med 2 [facility] Work Phone: Start: 1950 Sex Assigned At Not on file S [facility] Work Phone: Start: 08-13-2012 End: 11-13-2019 Tobacco smoking status NHIS Never smoker [facility] Start: 05-23-2018 End: 11-13-2019 Tobacco use and exposure Never used [facility] Start: 11-13-2019 History SDOH Alcohol Std Drinks 98 [facility] Start: 10-11-2021 End: 02-15-2022 Exposure to SARS-CoV-2 (event) Not sure [facility] Start: 1950 Sex Assigned At Male W [facility] History of tobacco use Current smoker [facility] Work Phone: History of tobacco use Cigarette Smoker S [facility] Work Phone: Start: 10-31-2021 End: 08-13-2023 Tobacco use panel [facility] Tobacco smoking stat us MNIS Unknown if ever smoked [facility] Work Phone: Start: 07-11-2024 End: 08-21-2024 Sex Male (finding) [facility] NEGATED: Highlighted row - - [facility] Work Phone: Medical Equipment Procedure Code Equipment Code Equipment Origin al Text Equipment Identifier Dates Kit Bactiseal Woodard maria guadalupe Silicone Barium Catheter Shunt Sterile - [id number] Start: 06-08-2021 Catheter Bactise al 14cm External Drainage Csf Sterile Latex Free - [id number] Start: 08-05-2021 Valve Certas Shannon nt Inline - [id number] Start: 06-08-2021 Cass snow Inline - [id number] Start: 08-05-2021 Valve Armando snow Inline - [id number] Start: 08-09-2021 Goals Date Patient Goal [...] confident he can reach it. 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 Past Surgical History: Procedure [...] PM documented in this encounter [facility] 08-31-2023 Note S: Shanthi from [facility] spoke with [facility] nurse regarding [...] Protocols used: Information Only Call - No [facility]23 Telephone encounter Note S: Shanthi from [facility] spoke with [facility] nurse [...] Protocols used: Information Only Call - No Jcvdci-JJAND-KT [facility] 08-31-2023 Miscellaneous Notes S: Shanthi from [facility] [place] spoke with [facility] nurse regarding voiding trial procedure. B: Onset of symptoms/concern today. A: [facility] is calling to make sure [...] Protocols used: Information Only Call - No Phllzu-SHNTN-GO documented in this encounter [facility] 08-29-2023 Telephone encounter Note Lm on daughters vm to advise them to call the number for the brand manager to get clarification, and to call back with further questions [facility] 08-29-2023 Miscellaneous Notes Lm on daughters vm to advise them to call the number for the brand manager to get clarification, and to call back with further questions Yes, they will need to call the number given to them. Please advise Name of caller: Shanthi Contact phone number: [phone] Relationship to Patient: patient Provider: MD Quinn Practice: [facility] Chief Complaint/Reason for Call: Shanthi called [...] reach out to call Maury Avila at [facility] [phone] to get clarifications. TEA did reach back out to [facility] and advised and provider Maury's #. Please advise Best time of day caller can be reached: Any Patient advised that office/PCP has 24-48 business hours to return their call: N/A documented in this encounter [facility] 08-27-2023 Telephone encounter Note Yes, they will need to call the number given to them. [facility] 08-27-2023 Telephone encounter Note Please advise [facility] 08-21-2023 Telephone encounter Note Name of caller: Shanthi Contact phone number: [phone] Relationship to Patient: patient Provider: MD Quinn Practice: [facility] Chief Complaint/Reason for Call: Shanthi called in to see if Pt would need to come by cot for his CT appt due to Pt being Bo[place]. TEA did reach out to office and was advised to reach out to Central Scheduling. TEA did reach out to CS and was advised to let [facility] know that she would need to reach out to call Maury Avila at [facility] [phone] to get clarifications. [facility] did reach back out to [facility] and advised and provider Maury's #. Please advise Best time of day caller can be reached: Any Patient advised that office/PCP has 24-48 business hours to return their call: N/A [facility] 08-13-2023 History of Present illness Narrative Images [...] Hydrocephalus, adult (CMS/HCC) (HCC) Kidney stone Neuropathy GENERAL PARTNER (ventriculoperitoneal) shunt status Past Surgical History: Past [...] AM documented in this encounter [facility] 06-25-2023 Telephone encounter Note [facility] called in stating appt scheduled 07/10/23 Guy has to be made further out, pt being transported by cot. Changed appt to 08/13/23 per [facility] only avail time for transport, first avail with DR Buck at 10:00 AM. [facility] 06-25-2023 Miscellaneous Notes [facility] called in stating appt scheduled 07/10/23 Guy has to be made further out, pt being transported by cot. Changed appt to 08/13/23 per [facility] only avail time for transport, first avail with DR Buck at 10:00 AM. documented in this encounter [facility] 12-22-2021 Hospital Discharge instructions SANIA Lou - 12/22/2021 2:32 AM EDT Please take medication as prescribed Please follow up with your Physicians as instructed in this discharge paperwork Thank you for choosing [facility] I appreciate your patience Please return to the emergency department if your symptoms worsen, or new symptoms develop as discussed documented in this encounter [facility] Work Phone: 10-29-2021 Note Hospitalist Discharg [...] abnormality and previous indwelling tubing history of GENERAL PARTNER shunt ? #?Bilateral lower extremity wounds-wound care [...] Your Medications These medications were sent to [facility] [address] [place] [address] [address] [facility] - P [phone] - F [phone] [facility] [id number] ? levETIRAcetam 750 MG tablet ? warfarin 6 MG tablet Recommended Follow-up: No follow-up provider specified. Complexity of Follow up: [] Moderate Complexity: follow up within 7-14 calendar days (89628) [x] Severe Complexity: follow up within 7 calendar days (05499) Follow up Testing, Pending results or Referrals [...] Increased fatigue or (more content not included)... [facility] 10-29-2021 Hospital Discharge instructions Fabi Subramanian [...] Contact Information Primary Emergency Contact: NelsonTriny Address: [address] [place] [address] [place] [address] [facility] Relation: Brother/Sister Secondary Emergency Contact: Melissa Sifuentes Mobile Relation: Child Preferred language: Estonian Past Surgical History: Past Surgical History: Procedure Laterality Date BRAIN SURGERY CHOLECYSTECTOMY COLONOSCOPY HERNIA REPAIR Immunization History: Immunization History Administered Date(s) Administered Influenza Virus Vaccine 02/08/2015 Influenza, High Dose (Fluzone 65 yrs and older) 01/25/2018, 03/04/2019 Influenza, Quadv, IM, (6 mo and older Fluzone, Flulaval, Fluarix and 3 yrs and older Afluria) 02/24/2016, 02/14/2017 Pneumococcal Conjugate 13-valent ([id number]) 09/22/2016 Pneumococcal Conjugate Vaccine 02/04/2013 Pneumococcal Polysaccharide (Odikbfisn60) 12/03/2018 Tdap (Boostrix, Adacel) 09/22/2016 Active Problems: Patient Active Problem List Diagnosis Code Flank pain, acute R10.9 Night muscle spasms M62.838 Chronic fatigue R53.82 Hydrocephalus (HCC) G91.9 Neuropathy G62.9 Erectile dysfunction N52.9 Fluid retention in tissues R60.9 Hyperlipidemia E78.5 Morbidly obese (HCC) E66.01 Leg wound, left S81.802A DVT, lower extremity, recurrent, unspecified laterality ([facility]) I82.409 Moderate malnutrition ([facility]) E44.0 History of seizures Z87.898 Isolation/Infection: Isolation [...] Dependent Dressing Dependent Toileting Dependent Feeding Dependent Professor Of Rhetoric Dependent Med Delivery whole in pudding Wound Care Documentation and Therapy: Wound 10/21/21 Heel Left (Active) Wound Etiology Pressure Unstageable 10/28/21 0800 Dressing Status Clean;Dry;Intact 10/28/21 1948 Dressing/Treatment ABD;Roll gauze 10/28/211947 Offloading for Diabetic [...] Q4H prn SOB Oxygen Therapy: {Therapy; copd oxygen:33065} Ventilator: { CC Vent List:[id number]} Rehab Therapies: {THERAPEUTIC INTERVENTION:[id number]} Weight Bearing Status/Restrictions: Weight Bearing - Patient was bedbound in hospital Other Medical Equipment (for information only, NOT a DME order): wheelchair, hospital bed, and Boaz Other Treatments: Patient's personal belongings (please select all that are sent with patient): {[facility] DME Belongings:[id number]} RN SIGNATURE: CASE MANAGEMENT/SOCIAL WORK SECTION Inpatient Status Date: Readmission Risk Assessment Score: Readmission Risk Risk of Unplanned Readmission: 11 Discharging to Facility/ Agency Name: Address: Phone: Fax: Dialysis Facility (if applicable) Name: Address: Dialysis Schedule: Phone: Fax: [facility] [employer]/Flake Cutter Operator signature: {Esignature:787308547} PHYSICIAN SECTION Prognosis: Fair Condition at Discharge: Stable Rehab Potential (if transferring to Rehab): Fair Recommended Labs or Other Treatments After Discharge: Coumadin based on INR target range 2-3, Coumadin 6 mg on 10/30 and 10/31, recheck INR 11/01 and notify physician, ideally should be on 6 mg alt with 7 mg daily, PT/OT, follow-up with neurologist in 1 month, continue [facility] Physician Certification: I certify the above information and transfer of Andrew Sifuentes is necessary for the continuing treatment of the diagnosis listed and that he requires [facility] Facility for greater than 30 days. Update Admission H&P: No change in H&P PHYSICIAN SIGNATURE: documented in this encounter [facility] Work Phone: 10-29-2021 History of Present illness Narrative [facility] Anticoagulation Management Service ([facility]) Inpatient Warfarin Consult HPI: Andrew Sifuentes is a 71 y.o. 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 Pt was referred by Ellen Scherer APRN-KIM. Pt is on warfarin for DVT and [...] PharmD IRVIN Consult Service is available daily [phone]. Please search for covering pharmacist name via [employer] or Groups --> Pharmacy --> Anti-Coagulation Consult Pharmacist (on 3rd page). If no response via [employer], please page [phone]. Patient seen and chart reviewed. Afebrile. Adequate oxygenation on room air. Baseline mentation. Exam stable X 5 systems. Hgb 11.0 WBC 10.0 K Platelets 344 K Creatinine 0.71 GFR > 90 cc/min. NSE 20.8 with hemolysis. PT 30.8 INR 3.1 Conversion to Warfarin has been completed. APS w/u pending. Discussed with patient's property staff accountant. Will continue to monitor. Total visit time > 35 minutes. Neurology Attending Progress Note SUBJECTIVE: No issues overnight. Care discussed with nursing staff/patient's medical team MRI brain reported nothing acute. 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 At present patient is awake, follows commands, was able to tell his name, and that he was in hospital but not oriented to time. Per documentation patient had NCSE in May 2021, was on Vimpat, but it was discontinued as there was no evidence of recurrent seizures in july 2021 by Neurology at [facility], per daughter patient was on Dilantin for 31 yrs. Per daughter patient had seizures in the past and also felt he had staring episodes 10/26/2021 morning. Per daughter patient has been essentially bed bound in [place] since May 2021 but prior to that was independent Impressions: H/O hydrocephalus H/O seizure, H/O stroke Acute DVT H/O PE Plan: -MRI brain w/o contrast nothing acute -CT head done during this admission reported no hydrocephalus, ventricles within normal limits and both old and new GENERAL PARTNER shunt tubing noted -EEG mild to moderate slow, no seizures reported -Labs reviewed -Hydrocephalus management per Neurosurgery. At present patient does not have hydrocephalus on CT head done this admission. [facility] Patient can follow up with Neurosurgery as outpatient and if ends up needing inpatient neurosurgery requirement then may need to be transferred to [facility]. -No clear clinical signs of ventriculitis. Defer evaluation to primary medical team/ID as deemed necessary. -Discussed with daughter in detail on . She was concerned that patient has had h/o seizures, and he has been taken off seizure medication, per note documentation patient had NCSE in May 2021 when he was admitted to [facility]. Per daughter she would want [...] is no in house [facility] over [facility] weekend, primary hospitalist team to contact health care liaison Neurology at [facility] for any weekend neurological issues related to the patient and if need to discuss any neurological test results/findings. Other deal in house Neurology coverage will be available from Sunday at [facility] and please call health care liaison Neurology back on Sunday if need further assistance. This note has been generated using careersmore dictation software. It may contain incorrect words, punctuation's and spellings that were not noted in the review of the note prior to signing. This note has been generated using careersmore dictation software. It may contain incorrect words, [...] eGFR >90.0 >60 mL/min EGFR IF NonAfrican Montserratian >90.0 >60 mL/min Calcium 9.1 8.4 - [...] 26 AST 24 BILITOT 0.4 LABALBU 3.7 @BRIEFLAB([facility]) ABGs: )No results for input(s): [...] Radiology ACCESSION EXAM DATE/TIME PROCEDURE ORDERING PROVIDER [id number] 10/21/2021 15:30 EDT CR Calcaneus 2+ Views [id number] -SHRUTHI MALIK Left CPT code 39511 Reason For Exam (CR Calcaneus 2+ Views [...] Result Date: 10/26/2021 [id number] Tomography ACCESSION EXAM DATE/TIME PROCEDURE ORDERING PROVIDER [id number] 10/26/2021 11:[address] Head or Brain w/o JUNIE PINEDA ALLISON Contrast CPT code 13149 Reason For Exam (CT Head or Brain w/o Contrast) hydrocephalus. thank you Report CLINICAL INFORMATION: Hydrocephalus. Shunt. 3 mm axial cuts through the head are obtained without IV contrast. The examination is compared to a previous study dated 06/29/2014. FINDINGS: Old GENERAL PARTNER shunt tubing is noted bilaterally. The new [...] are clear. IMPRESSION: 1. Old and new GENERAL PARTNER shunt tubing. 2. No hydrocephalus. 3. Atrophy [...] Imaging ACCESSION EXAM DATE/TIME PROCEDURE ORDERING PROVIDER [id number] 10/23/2021 11:08 EDT MRI Abdomen w/o Contrast SRIVASTAVAWING CPT code 64961 Reason For Exam (MRI Abdomen w/o Contrast) [...] Medicine ACCESSION EXAM DATE/TIME PROCEDURE ORDERING PROVIDER [id number] 10/21/2021 07:55 EDT NM Pulmonary Perfusion [id number] -MAY CASH w/ Vent Aerosol CPT code 11418 A9567 Reason For Exam (NM Pulmonary Perfusion [...] Brachial Indices Extremity Bilateral Result Date: 10/22/2021 [facility] --- Ankle Brachial Index Report Patient DO GurpreetB: 1950 Study 10/21/2021 Name: Andrew Gonzalez (71yrs) Date: Age: 71 Account: [id number] Gender: M Loc: 444W BP: Ordering Physician: Shruthi Malik Circuit Court Judge: Rody Cross RDMS, RVT Interpreting Physician: Carina Call --- Location: [facility] --- Indications: Foot wounds. Originally ordered as a full PVR. Ordering PAYROLL SPECIALIST had to modify the order to ABIs [...] supine position. Images were obtained using a [employer] vascular ultrasound machine. --- Arterial pressure indices: [...] EXTREMITY BILATERAL VENOUS DUPLEX Result Date: 10/21/2021 [facility] --- Lower Extremity Venous Duplex Report Patient DO GurpreetB: 1950 Study 10/21/2021 Name: Andrew Gonzalez (71yrs) Date: Age: 71 Account: [id number] Gender: M Loc: 444 BP: Ordering Physician: May Cash Circuit Court Judge: Rody Cross RDMS, RVT Interpreting Physician: Carina Call --- Location: [facility] --- Indications: Bilateral lower leg [...] supine position. Images were obtained using a [employer] vascular ultrasound machine. --- Venous flow and [...] Radiology ACCESSION EXAM DATE/TIME PROCEDURE ORDERING PROVIDER [id number] 10/21/2021 08:16 EDT CR Chest 1 View Frontal [id number] MAY BOGGS CPT code 58491 Reason For Exam (CR Chest 1 View [...] Result Date: 10/22/2021 [id number] Computed Tomography ACCESSION EXAM DATE/TIME PROCEDURE ORDERING PROVIDER [id number] 10/22/2021 13:[address] Abdomen/Pelvis (No SRIVASTAVA, WING PO, No IV) CPT code 63513 Reason For Exam (CT Abdomen/Pelvis (No PO, [...] Imaging ACCESSION EXAM DATE/TIME PROCEDURE ORDERING PROVIDER [id number] 10/27/2021 13:14 EDT MRI Brain w/o Contrast UNASSIGNED, UNASSIGNED CPT code 41966 Reason For Exam (MRI Brain w/o Contrast) stroke Patient has GENERAL PARTNER shunt in place, please follow Radiology protocol [...] included. Hospitalist Progress Note 10/28/2021 11:37 AM [phone]: Please page me @ [phone] for patient care issues. [phone]: Please page hire car driver for any issues@ night Subjective: Admit Date: [...] abnormality and previous indwelling tubing history of GENERAL PARTNER shunt # Bilateral lower extremity wounds-wound care [...] Services This report was created using the GroSocial Speaking voice-activated system. Despite prompt dictation and careful editorial review, there may be subtle contextual errors in this report, due to misrecognition of the spoken word. Speech Language Pathology Facility/Department: [facility] MED SURG Dysphagia Treatment Note [...] and gloves were worn throughout this session. [facility] Anticoagulation Management Service ([facility]) Inpatient Warfarin Consult HPI: Andrew Sifuentes is a 71 y.o. 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 Pt [...] interactions and adjust dose accordingly. 3. [facility] will manage while inpatient and sign off at discharge. Patient resides in a SNF. 4. Will provide warfarin education including [facility] warfarin booklet, if appropriate. Brionna Le, PharmD candidate Josie Gupta RPh, PharmD [facility] Consult Service is available daily [phone]. Please search for covering pharmacist name via PerfectServe or Groups --> Pharmacy --> Anti-Coagulation Consult Pharmacist (on 3rd page). If no response via PerfectServe, please page [phone]. Follow up b/l foot wounds. 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 At present patient is awake, follows commands, was able to tell his name, and that he was in hospital but not oriented to time. Per documentation patient had NCSE in May 2021, was on Vimpat, but it was discontinued as there was no evidence of recurrent seizures in july 2021 by Neurology at [facility], per daughter patient was on Dilantin for 31 yrs. Per daughter patient had seizures in the past and also felt he had staring episodes 10/26/2021 morning. Per daughter patient has been essentially bed bound in [place] since May 2021 but prior to that was independent Impressions: H/O hydrocephalus H/O seizure, H/O stroke Acute DVT H/O PE Plan: -MRI brain w/o contrast. Per daughter she would like MRI brain done to evaluate for strokes -CT head done during this admission today reported no hydrocephalus, ventricles within normal limits and both old and new GENERAL PARTNER shunt tubing noted -EEG mild to moderate slow, no seizures reported -Labs reviewed -Hydrocephalus management per Neurosurgery. At present patient does not have hydrocephalus on CT head done this admission. No [facility] Patient can follow up with Neurosurgery as outpatient and if ends up needing inpatient neurosurgery requirement then may need to be transferred to [facility]. -No clear clinical signs of ventriculitis. Defer evaluation to primary medical team/ID as deemed necessary. -Discussed with daughter in detail on . She was concerned that patient has had h/o seizures, and he has been taken off seizure medication, per note documentation patient had NCSE in May 2021 when he was admitted to [facility]. Per daughter she would want [...] interim. This note has been generated using careersmore dictation software. It may contain incorrect words, punctuation's and spellings that were not noted in the review of the note prior to signing. This note has been generated using careersmore dictation software. It may contain incorrect words, [...] LABALBU, AMYLASE, LIPASE in the last 72 hours.@BRIEFLAB([facility]) ABGs: )No results for input(s): [...] Radiology ACCESSION EXAM DATE/TIME PROCEDURE ORDERING PROVIDER [id number] 10/21/2021 15:30 EDT CR Calcaneus 2+ Views [id number] -SHRUTHI MALIK Left CPT code 13946 Reason For Exam (CR Calcaneus 2+ Views [...] Tomography ACCESSION EXAM DATE/TIME PROCEDURE ORDERING PROVIDER [id number] 10/26/2021 11:[address] Head or Brain w/o EDWIN, PAYROLL SPECIALIST, SARINA Contrast CPT code 42639 Reason For Exam (CT Head or Brain w/o Contrast) hydrocephalus. thank you Report CLINICAL INFORMATION: Hydrocephalus. Shunt. 3 mm axial cuts through the head are obtained without IV contrast. The examination is compared to a previous study dated 06/29/2014. FINDINGS: Old GENERAL PARTNER shunt tubing is noted bilaterally. The new [...] are clear. IMPRESSION: 1. Old and new GENERAL PARTNER shunt tubing. 2. No hydrocephalus. 3. Atrophy [...] Imaging ACCESSION EXAM DATE/TIME PROCEDURE ORDERING PROVIDER [id number] 10/23/2021 11:08 EDT MRI Abdomen w/o Contrast WING SRIVASTAVA CPT code 65228 Reason For Exam (MRI Abdomen w/o Contrast) [...] Medicine ACCESSION EXAM DATE/TIME PROCEDURE ORDERING PROVIDER [id number] 10/21/2021 07:55 EDT NM Pulmonary Perfusion [id number] MAY BOGGS w/ Vent Aerosol CPT code 57586 A9567 Reason For Exam (NM Pulmonary Perfusion [...] Brachial Indices Extremity Bilateral Result Date: 10/22/2021 [facility] --- Ankle Brachial Index Report Patient Gurpreet RADHA: 1950 Study 10/21/2021 Name: Andrew Gonzalez (71yrs) Date: Age: 71 Account: [id number] Gender: M Loc: 444W BP: Ordering Physician: Shruthi Malik Circuit Court Judge: Rody Cross RDMS, RVT Interpreting Physician: Carina Call --- Location: [facility] --- Indications: Foot wounds. Originally ordered as a full PVR. Ordering PAYROLL SPECIALIST had to modify the order to ABIs [...] supine position. Images were obtained using a [employer] vascular ultrasound machine. --- Arterial pressure indices: [...] EXTREMITY BILATERAL VENOUS DUPLEX Result Date: 10/21/2021 [facility] --- Lower Extremity Venous Duplex Report Patient DO GurpreetB: 1950 Study 10/21/2021 Name: Andrew Gonzalez (71yr) Date: Age: 71 Account: [id number] Gender: M Loc: 444 BP: Ordering Physician: May Cash Circuit Court Judge: Rody Cross RDMS, RVT Interpreting Physician: Jakub, Carina --- Location: [facility] --- Indications: Bilateral lower leg [...] supine position. Images were obtained using a [employer] vascular ultrasound machine. 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 There are [...] Easy to chew diet/cut up. NEVILLE Jones M.A.CCC/TIRE CORD WEAVER Time session ended: 1156 Total session minutes: 23 Images from the original note were not included. Hospitalist Progress Note 10/27/2021 10:40 AM [phone]: Please page me @ [phone] for patient care issues. [phone]: Please page hire car driver for any issues@ night Subjective: Admit Date: [...] Services This report was created using the GroSocial Speaking voice-activated system. Despite prompt dictation and careful editorial review, there may be subtle contextual errors in this report, due to misrecognition of the spoken word. [facility] Anticoagulation Management Service ([facility]) Inpatient Warfarin Consult HPI: Andrew Sifuentes is a 71 y.o. 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 Pt was referred by Ellen Scherer APRN-KIM. Pt is on warfarin for DVT and [...] SNF. 4. Will provide warfarin education including [facility] warfarin booklet, if appropriate. Thank you for this consult Brionna Le, RigoD candidate Josie Gupta [facility], PharmD IRVIN Consult Service is available daily [phone]. Please search for covering pharmacist name via EnteGreat or Groups --> Pharmacy --> Anti-Coagulation Consult Pharmacist (on 3rd page). If no response via EnteGreat, please page [phone]. I cleaned under patient's finger nails with [...] therapeutic status with Warfarin. Discussed with patient's property staff accountant. Will continue to monitor. Total [...] if concern Hydrocephalus Chronic WOODARD's - Revised GENERAL PARTNER shunt - daughter requested that pt have CT / MRI of brain and neurology be consulted, this was done. - "Hydrocephalus management per Neurosurgery. At present patient does not have hydrocephalus on CT head done this morning. No [facility]. Patient can follow up with Neurosurgery as outpatient and if ends up needing inpatient neurosurgery requirement then may need to be transferred to [facility]. " Seizure history, unspecified - daughter [...] get report from nursing. Continue wound care. [facility] Anticoagulation Management Service ([facility]) Inpatient Warfarin Consult HPI: Andrew Sifuentes is a 71 y.o. 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 Pt was referred by Ellen B Niesha, INDUSTRIAL HYGIENE MANAGER-S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. Pt is on warfarin for DVT [...] PharmD IRVIN Consult Service is available daily [phone]. Please search for covering pharmacist name via EnteGreat or Groups --> Pharmacy --> Anti-Coagulation Consult Pharmacist (on 3rd page). If no response via EnteGreat, please page [phone]. Moon daughter stated that any of patient's family can call and obtain an update on patient's status. Speech Language Pathology Facility/Department: [facility] MED SURG CLINICAL BEDSIDE SWALLOW [...] a small bore straw. Additionally discussed with TIRE CORD WEAVER, agreeable to assess tomorrow. Recent Chest Xray/CT [...] and liquids between bites. Treatment Plan Requires TIRE CORD WEAVER Intervention: Yes Duration of Treatment: 2 weeks [...] Education Response: Verbalizes understanding;Needs reinforcement Therapy Time TIRE CORD WEAVER Individual Minutes Time In: 826 Time Out: 852 Minutes: 26 NEVILLE Jones 10/26/2021 9:20 AM Comprehensive Nutrition Assessment Type and Reason for Visit: Initial (DT referral for wounds) Nutrition Recommendations/Plan: 1. Recommend to continue: Easy to Chew diet with Thin Liquids as currently ordered and safe for patient to participate in. Discussed with: RN, PAYROLL SPECIALIST, and TIRE CORD WEAVER. TIRE CORD WEAVER to assess tomorrow, best diet and liquid [...] Malnutrition Assessment: Malnutrition Status: Moderate malnutrition (10/25/21 8479) Context: Chronic Illness Findings of the 6 [...] & deltoids),Scapula (trapezius) Fluid Accumulation: Mild Extremities Geologist Strength: Not Performed Nutrition Assessment: 71 year [...] a small bore straw. Additionally discussed with TIRE CORD WEAVER, agreeable to assess tomorrow. Nutrition Related Findings: [...] Anthropometric Measures: Height: 5' 7.01" (170.2 cm) [place] Body Weight (IBW): 148 lbs (67 kg) [...] On: Kcal/kg Weight Used for Energy Requirements: [place] (67.15 kg) Energy (kcal/day): 5501-5951 (27-32 kcal/kg IBW) --> increased need d/t wounds Weight Used for Protein Requirements: [place] (67.15 kg) Protein (g/day): 67-101 (1.0-1.5 g protein/kg IBW) Method Used for Fluid Requirements: Other (Comment) Fluid (ml/day): 3587-6079 mL daily or per MD Nutrition Diagnosis: [...] Plan of Care discussed with: Patient, RN, PAYROLL SPECIALIST Edwin Goals: Goals: other (specify) Specify Other [...] to determine Puja Almanza RD, LD Contact: [phone] EnteGreat Hematology/Oncology Attending Progress Note SUBJECTIVE: Patient seen [...] IRON, TIBC, FERRITIN No results found for: [id number] No results found for: FOLATE PT 15.6 INR 1.5 CA 19 - 9 is 17 Protein S 138% Protein C 186% ASSESSMENT AND PLAN GI input appreciated. Patient continues with subtherapeutic INR. GI input appreciated. Discussed with patient's property staff accountant. Will continue monitor. Total visit time > 35 minutes. [facility] Anticoagulation Management Service ([facility]) Inpatient Warfarin Consult HPI: Andrew Sifuentes is a 71 y.o. 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 Pt was referred by Ellen Scherer APRN-KIM. Pt is on warfarin for DVT and [...] SNF. 4. Will provide warfarin education including [facility] warfarin booklet, if appropriate. Thank you for this consult Brionna Le, PharmD candidate Josie Gupta RPh, PharmD [facility] Consult Service is available daily [phone]. Please search for covering pharmacist name via EnteGreat or Groups --> Pharmacy --> Anti-Coagulation Consult Pharmacist (on 3rd page). If no response via EnteGreat, please page [phone]. Progress Note 10/25/2021 9:36 AM Name: Andrew [...] if concern Hydrocephalus Chronic WOODARD's - Revised GENERAL PARTNER shunt DC planning - 10/25/21: INR subtherapeutic, needs to be 2 Progress Note 10/24/2021 3:24 PM Name: Andrew Sifeuntes Day: 3 Admit Date: 10/21/2021 12:43 AM [...] if concern Hydrocephalus Chronic WOODARD's - Revised GENERAL PARTNER shunt DC planning - Can be DC'd back to ECF once MRI done if no acute findings, MRI is done, defer to hem / onc on plan for that, awaiting chest PA with fluoro Patient seen and chart reviewed. Consult dictated. Will ask GI to assess concerning the etiology of liver lesions. Will continue to monitor. [facility] Anticoagulation Management Service ([facility]) Inpatient Warfarin Consult HPI: Andrew Sifuentes is a 71 y.o. 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 Pt was referred by Ellen Scherer APRN-KIM. Pt is on warfarin for DVT and [...] interactions and adjust dose accordingly. 3. [facility] will manage while inpatient and sign off at discharge. Patient resides in a SNF. 4. Will provide warfarin education including [facility] warfarin booklet, if appropriate. Thank you for this consult Brionna Le, PharmD candidate Josie Gupta RPh, PharmD [facility] Consult Service is available daily [phone]. Please search for covering pharmacist name via DoubleUpve or Groups --> Pharmacy --> Anti-Coagulation Consult Pharmacist (on 3rd page). If no response via PerfectServe, please page [phone]. Follow up foot wounds Patient is more alert this morning. Waffle boots are on Ulcer left heel ulcer right foot Foot drop PE, chart reviewed. Patient relates that he does not walk at home. c ontinue wound care. Images from the original note were not included. Hospitalist Progress Note 10/23/2021 1:47 PM [phone]: Please page me ([phone]) or perfect serve me for patient care issues. [phone]: Please page IMS night Hospitalist for any issues. 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 Pt referred to RD for foot ulcers. Occupational Therapy Facility/Department: [facility] MED SURG Occupational Therapy Initial Assessment Name: Andrew Sifuentes : 1950 Date of Service: 10/23/2021 OT eval and treat orders received. Chart reviewed. Per notes pt from [facility], is Boaz lift at baseline, non-ambulatory, and requires assist for all ADLs. Will d/c OT orders. Elizabeth Gutierrez OT Physical Therapy Facility/Department: [address] Physical Therapy Initial Assessment Name: Andrew Sifuentes : 1950 Date of Service: 10/23/2021 PT eval and treat orders received. Chart reviewed. Per notes pt from [facility], is Boaz lift at baseline, non-ambulatory. Will d/c PT orders. Lloyd Silva PT [facility] Anticoagulation Management Service ([facility]) Inpatient Warfarin Consult HPI: Andrew Sifuentes is a 71 y.o. 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 Pt [...] PharmD IRVIN Consult Service is available daily [phone]. Please search for covering pharmacist name via EnteGreat or Groups --> Pharmacy --> Anti-Coagulation Consult Pharmacist (on 3rd page). If no response via DoubleUpve, please page [phone]. Department of Podiatry Attending Consult Note Reason for Consult: Wound care Requesting Physician: MD Oksana CHIEF COMPLAINT: Foot wounds HISTORY OF PRESENT ILLNESS: The patient is a 71 y.o. male with b/l foot wounds. Patient is awake , but not answering questions. 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 Will follow . Thank you. [facility] Respiratory Care Department Progress Note As [...] included. Hospitalist Progress Note 10/22/2021 6:33 AM [phone]: Please page me ([phone]) or perfect serve me for patient care issues. [phone]: Please page [facility] night Hospitalist for any issues. Subjective: Admit Date: 10/21/2021 PCP: MONIKA STALEY MD Room#: 881/1461 Admitting Synopsis: 71 y/o male presents from [...] consider MRI if concern Hydrocephalus - Revised GENERAL PARTNER shunt Interval History: No overnight issues. 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 Hospitalist Progress Note 10/21/2021 5:31 PM [phone]: Please page me ([phone]) or perfect serve me for patient care issues. [phone]: Please page [facility] night Hospitalist for any [...] Will need chronic OAC Hydrocephalus - Revised GENERAL PARTNER shunt Interval History: No overnight issues. 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 Her phone number is [phone] to speak with whomever was attempting to reach out to her. documented in this encounter [facility] Work Phone: 10-17-2021 Miscellaneous Notes Mr. Sifuentes missed his hospital stay follow-up appointment w. Dr. Lim today. Called to Reschedule. Could not get through. "Subscriber you have dialed not in service" - was the automated voice mail. Unable to leave VM. No other phone# available. Ramya Negro Bacon De Rinder [facility] documented in this encounter [facility] 08-19-2021 Note [facility] 08-19-2021 Note [facility] 08-18-2021 Note [facility] 08-18-2021 Note [facility] 08-17-2021 Note [facility] 08-17-2021 Note [facility] 08-16-2021 Note [facility] 08-16-2021 Note HNO ID: [id number] Author: Katt Kelsey DO Service: Hospital Medicine Author Type: Physician Type: Plan of Care Filed: 08/16/2021 12:26 PM Note Text: Spoke with RN that line is a PICC. Katt Kelsey DO 08/16/2021 12:26 PM [facility] 08-16-2021 Note [facility] 08-16-2021 Note [facility] 08-15-2021 Note [facility] 08-15-2021 Note [facility] 08-15-2021 Note [facility] 08-14-2021 Note [facility] 08-14-2021 Note [facility] 08-13-2021 Note [facility] 08-13-2021 Note [facility] 08-13-2021 Note [facility] 08-13-2021 Note HNO ID: [id number] Author: Ambar Note Service: ? Author Type: ? Type: Progress Notes Filed: 08/13/2021 3:10 AM Note Text: Epic Scheduled Downtime: 08/13/2021 1:08:47 AM to 08/13/2021 2:53:47 AM [facility] 08-12-2021 Note [facility] 08-12-2021 Note [facility] 08-12-2021 Note [facility] 08-11-2021 Note [facility] 08-11-2021 Note [facility] 08-11-2021 Note [facility] 08-11-2021 Note [facility] 08[facility]11-2021 Note [facility] 08-11-2021 Note [facility] 08-10-2021 Note [facility] 08-10-2021 Note [facility] 08-10-2021 Note [facility] 08-10-2021 Note [facility] 08-09-2021 Note HNO ID: [id number] Author: Shannon Brooks RN Service: ? Author Type: Registered Nurse Type: Nursing Progress Note Filed: 08/09/2021 7:33 PM Note Text: Report called to unit [facility] 08-09-2021 Note [facility] 08-09-2021 Note [facility] 08-09-2021 Note [facility] 08[facility]08-2021 Note [facility] 08[facility]08-2021 Note [facility] 08-08-2021 Note [facility] 08-07-2021 Note [facility] 08[facility]07-2021 Note [facility] 08-07-2021 Note [facility] 08-07-2021 Note [facility] 08[facility]07-2021 Note [facility] 08-06-2021 Note [facility] 08[facility]06-2021 Note [facility] 08[facility]06-2021 Note [facility] 08-05-2021 Note [facility] 08-05-2021 Note [facility] 08[facility]05-2021 Note [facility] 08-04-2021 Note [facility] 08-04-2021 Note [facility] 08-04-2021 Note [facility] 08-03-2021 Note [facility] 08-03-2021 Note [facility] 08-03-2021 Note [facility] 08-02-2021 Note [facility] 08-02-2021 Note [facility] 08-02-2021 Note [facility] 08-01-2021 Note [facility] 08[facility]01-2021 Note [facility] 08-01-2021 Note [facility] 08-01-2021 Note [facility] 07-31-2021 Note [facility] 07-31-2021 Note [facility] 07-30-2021 Note [facility] 07[facility]30-2021 Note [facility] 07-30-2021 Note [facility] 07-29-2021 Note [facility] 07-29-2021 Note [facility] 07-29-2021 Note [facility] 07-28-2021 Note [facility] 07-28-2021 Note [facility] 07[facility]28-2021 Note [facility] 07-27-2021 Note [facility] 07[facility]27-2021 Note [facility] 07-27-2021 Note [facility] 07-26-2021 Note [facility] 07-26-2021 Note [facility] 07[facility]26-2021 Note [facility] 07[facility]26-2021 Note [facility] 07-26-2021 Note [facility] 07-25-2021 Note [facility] 07-25-2021 Note [facility] 07[facility]25-2021 Note [facility] 07-25-2021 Note [facility] 07-24-2021 Note [facility] 07-24-2021 Note [facility] 07-24-2021 Note [facility] 07-23-2021 Note [facility] 07-23-2021 Note [facility] 07-23-2021 Note [facility] 07[facility]23-2021 Note [facility] 07-23-2021 Note [facility] 07-22-2021 Note [facility] 07-22-2021 Note [facility] 07-22-2021 Note [facility] 07[facility]21-2021 Note [facility] 07-21-2021 Note [facility] 07-21-2021 Note [facility] 07-21-2021 History of [...] history of fever, elevated WBC, RP hematoma GENERAL PARTNER shunt tip grew anaerobic gram positive cocci 06/08/2021 PLAN: GENERAL PARTNER shunt tip sent to [facility] main, awaiting cx Continue Meropenem per [...] - following CSF studies; 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 for CONTACT LENS TECHNICIAN infection at this time - ID following- Continue antibiotics: Meropenem -CSF leak from EVD site, appreciate NSGY recs> stat repeat CTH on 06/07 d/t concern for CSF leak, cephalematoma, CTH unremarkable -Tolerating TF - SBT WTE - PICC line placed documented as of this encounter (statuses as of 10/17/2021) [facility]03-17-2022 [facility]16-[facility] Note [facility]03-16-2022 [facility] 07-19-2021 [facility]2022 Note [facility]03-12-2022 [facility] 07-15-2021 [facility]22 Note [facility]03-09-2022 [facility] 07-12-2021 [facility]22 Note [facility]03-05-2022 [facility] 07-09-2021 [facility]2022 NoteHNO ID: [id number] Author: Lizette Valderrama RN Service: Nursing Author Type: Registered Nurse Type: Nursing Progress Note Filed: 07/09/2021 1:41 AM Note Text: Report called to [facility] [place]03-04-2022 NoteHNO ID: [id number] Author: Lizette Valderrama RN Service: Nursing Author Type: Registered Nurse Type: Nursing Progress Note Filed: 07/08/2021 8:57 PM Note Text: [address]49 back to PACU [address] [place], [place] 5483203-04-2022 NoteHNO ID: [id number] Author: Sukhi Chery APRN.CNP Service: ? Author Type: Nurse Practitioner Type: Progress Notes Filed: 07/09/2021 6:46 PM Note Text: Connected Care Unit Progress Note Patient Name: Andrew Sifuentes Patient Facility: [facility] Admit Date 06/28/2021 Level of Care: Skilled [...] Dept Phone 07/21/2021 11:00 AM NICOLE LIM [phone] HPI: (Per Dr. Beltran) Andrew Sifuentes is being seen today for alf facility (SNF) admission AND management of weakness, tube feed, infected retroperitoneal infection and seizure. ? This is a 71 year old male who presents from [facility] with primary admitting diagnosis of Seizure, [...] CT brain concerning for hydrocephalus. Tip of GENERAL PARTNER shunt was found to be in the [...] slow to respond. Ordered to transfer to [facility] ED for evaluation of neurological and [...] changes in co (more content not included)... [facility]03-04-2022 [facility]03[facility]04-[facility]2022 NoteHNO ID: [id number] Author: Sukhi Chery APRN.CNP Service: ? Author Type: Nurse Practitioner Type: Progress Notes Filed: 07/09/2021 6:20 PM Note Text: Connected Care Unit Progress Note Patient Name: Andrew Sifuentes Patient Facility: [facility] Admit Date 06/28/2021 Level of Care: Skilled [...] Dept Phone 07/21/2021 11:00 AM NICOLE LIM [phone] HPI: (Per Dr. Beltran) Andrew Sifuentes is being seen today for alf facility (SNF) admission AND management of weakness, tube feed, infected retroperitoneal infection and seizure. ? This is a 71 year old male who presents from [facility] with primary admitting diagnosis of Seizure, [...] CT brain concerning for hydrocephalus. Tip of GENERAL PARTNER shunt was found to be in the [...] Pharynx: Oropharynx is clear. (more content not included)...[facility]02-28-2022 NoteHNO ID: [id number] Author: Sukhi Chery APRN.S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 Service: ? Author Type: Nurse Practitioner Type: Progress Notes Filed: 07/09/2021 6:07 PM Note Text: Connected Care Unit Progress Note Patient Name: Andrew Sifuentes Patient Facility: [facility] Admit Date 06/28/2021 Level of Care: Skilled [...] but nursing notes it was drawn by director cost as vancomycin was being infused; reordered trough - PICC Line Intact - No fevers or chills per patient or staff (R53.81) Debility - Certify therapies - Maintain high falls risk precautions - pt/staff verbalize understanding validated via teach back - Monitor safety awareness Appointments for Next 60 Days Date Time Provider Location Dept Phone 07/21/2021 11:00 AM NICOLE LIM [phone] HPI: (Per Dr. Beltran) Andrew Sifuentes is being seen today for alf facility (SNF) admission AND management of weakness, tube feed, infected retroperitoneal infection and seizure. ? This is a 71 year old male who presents from [facility] with primary admitting diagnosis of Seizure, [...] CT brain concerning for hydrocephalus. Tip of GENERAL PARTNER shunt was found to be in the [...] to facility records. OBJECTIVE: Labs/diagnostics: 07/04/2021 Glucose=91 To=550 K=3.8 Ey=020 CO2=24 BUN=14 Creatinine=0.5 VUO=914 Ca=9.0 Protein,Total=6.7 Albumin=3.6 SjmTfda=205 AST=15 ALT=21 Bilirubin,Totall=0.5 WBC=10.7 RBC=4.04 Hgb=10.9 Hct=35.3 Rgnaikpa=767 VancomycinTr (more content not included)...[facility]02-24-2022 NoteHNO ID: [id number] Author: Sukhi Chery APRN.KIM Service: ? Author Type: Nurse Practitioner Type: Progress Notes Filed: 07/09/2021 5:43 PM Note Text: Connected Care Unit Progress Note Patient Name: Andrew Sifuentes Patient Facility: [facility] Admit Date 06/28/2021 Level of Care: Skilled [...] Phone 07/21/2021 11:00 AM NICOLE LIM [facility] [phone] HPI: (Per Dr. Beltran) Andrew Sifuentes is being seen today for alf facility (SNF) admission AND management of weakness, tube feed, infected retroperitoneal infection and seizure. ? This is a 71 year old male who presents from [facility] with primary admitting diagnosis of Seizure, [...] CT brain concerning for hydrocephalus. Tip of GENERAL PARTNER shunt was found to be in the [...] to facility records. OBJECTIVE: Labs/diagnostics: 07/01/2021 Glucose=83 Nx=170 K=4.1 Bl=157 CO2=27 BUN=22 Creatinine=0.6 XIX=645 Ca=8.7 WBC=10.8 RBC=3.40 Hgb=9.3 Hct=29.9 Gmbzwpff=350 Vital Signs: BP 128/80 Pulse 77 Temp 36.7 ?C (98 ?F) Resp 20 Ht 182.9 cm (6') Wt 113 kg (249 lb 3.2 oz) SpO2 96% BMI 33.80 kg/m? Physical Exam: Physical Exam Vitals reviewed. Constitutional: General: He is not in acute distress. (more content not included)...[facility]02-22-2022 [facility]02[facility] Note [facility]02-20-2022 [facility] 06-26-20[facility]2022 Note [facility]02-17-2022 [facility] 06-22-2021 NoteHNO ID: [id number] Author: Xiomy England RN Service: Nursing Author Type: Registered Nurse Type: Nursing Progress Note Filed: 06/22/2021 7:22 PM Note Text: RT contacted as pt has wheezing auscultated and same auditory. For prn Treatment.[facility]02-16-2022 [facility] Note [facility]02-15-2022 [facility] 06[facility]21-2021 [facility]22 Note [facility]02-13-2022 [facility] 06-19-2021 [facility]2022 Note [facility]02-12-2022 NoteHNO ID: [id number] Author: Ambar Note Service: ? Author Type: ? Type: Progress Notes Filed: 06/18/2021 3:10 AM Note Text: Epic Scheduled Downtime: 06/18/2021 1:00:00 AM to 06/18/2021 2:27:[facility] Note [facility]02-11-2022 [facility] 06-17-2021 [facility]10-2022 Note [facility]02-10-2022 [facility] 06-15-2021 [facility]-2022 NoteHNO ID: [id number] Author: Lamonte Kline DO Service: Neurology ICU Author Type: Resident Type: Plan of Care Filed: 06/15/2021 6:21 PM Note Text: Patient's daughter Melissa updated on plan of care and critical condition, all questions answered.[facility]02-09-2022 [facility]-09-2022 Note [facility]02-09-2022 [facility] 06-15-2021 [facility]22 Note [facility]02-07-2022 [facility]-12[facility]-2022 Note [facility]02-04-2022 [facility] 06-09-2021 [facility]03-[facility]-2022 NoteHNO ID: [id number] Author: Luis Diaz RN Service: ? Author Type: Registered Nurse Type: Nursing Progress Note Filed: 06/08/2021 9:23 AM Note Text: Patient off the floor to OR at this time.[facility]02-02-2022 [facility]02-02-20[facility] 06-08-2021 NoteHNO ID: [id number] Author: Eloise Samuel RN Service: ? Author Type: Registered Nurse Type: Nursing Progress Note Filed: 06/08/2021 12:46 AM Note Text: Dr. Brito notified of changes throughout shift. No new orders [facility] 06-07-2021 NoteHNO ID: [id number] Author: Eloise Samuel RN Service: ? Author Type: Registered Nurse Type: Nursing Progress Note Filed: 06/07/2021 8:01 PM Note Text: Neuro surg S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 notified of downward deviation of pupils. No new orders at this time.[facility]02-01-2022 [facility]02[facility]01-[facility] Note [facility]01-31-2022 [facility] 06-05-2021 [facility]22 NoteHNO ID: [id number] Author: Jermaine Miller PA-C Service: Neurosurgery Author Type: Physician Marine Consultant Type: Plan of Care Filed: 06/04/2021 1:59 PM Note Text: Discussed with Dr. Charles CT brain results. At this time, continue with EVD at 5 [facility]01-29-2022 [facility] 06-04-2021 [facility]22 NoteHNO ID: [id number] Author: Mauricio Frank DO Service: Neurology ICU Author Type: Physician Type: Plan of Care Filed: 06/03/2021 2:38 PM Note Text: I spoke with Melissa and updated her over the phone. Mauricio Frank, [facility]01-28-2022 [facility]01-28-2022 [facility]01[facility]27-2022 Note [facility]01-26-2022 [facility] 06[facility]01-2021 [facility]01[facility]26-20[facility]01[facility]-20[facility]01[facility]25-2022 Note [facility]01-25-2022 [facility]31-2021 [facility] Diagnosis Leg swelling- Primary Swelling of limb Acute deep vein thrombosis (DVT) of proximal vein of lower extremity, unspecified laterality (HCC) DVT, lower extremity, recurrent, unspecified laterality (HCC) Moderate malnutrition (HCC) Malnutrition of moderate degree History of seizures Personal history of other disorders of nervous system and sense organs documented in this encounter [facility] Work Phone: Evaluation noteNo assessment information available [facility] Work Phone: Evaluation note* Diagnosis Other fatigue- Primary documented in this encounter [facility] Work Phone: Evaluation note* Diagnosis Heel ulceration, left, with unspecified severity (HCC)- Primary documented in this encounter [facility] Work Phone: Evaluation note* Diagnosis Fall, initial encounter- Primary Anticoagulated Encounter for long-term (current) use of anticoagulants documented in this encounter [facility] Work Phone: Evaluation note* Diagnosis Left flank pain- Primary Abdominal pain, unspecified site Calculus of ureter Disease of prostate Unspecified disorder of prostate BPH with urinary obstruction Hypertrophy of prostate with urinary obstruction and other lower urinary tract symptoms (LUTS) documented in this encounter [facility] IFTTTEvaluation note* Diagnosis Left flank pain Abdominal pain, unspecified site Calculus of ureter documented in this encounter [facility] IFTTTEvaluation note* Diagnosis Left flank pain- Primary Abdominal pain, unspecified site BPH with urinary obstruction Hypertrophy of prostate with urinary obstruction and other lower urinary tract symptoms (LUTS) History of kidney stones documented in this encounter [facility] HealthInstructions* Name Dates Details Instructions not documented [facility] Work Phone: Instructions* Name Dates Details Instructions not documented [id number] [address] [place] Work Phone: Reason for referral (narrative)No reason for referral information availableTrihealth [facility] Work Phone: Advance Directives No Advanced Directives Records FoundDocuments on File Type Date Recorded Patient Machine Pecan Gatherer Expl anation Advance Directives and Living Will Power of Industrial Economist Documents on File Type Date Recorded Patient Machine Pecan Gatherer Expl anation Advance Directive(s) 06/02/2021 2:45 PM [...] Maker Relationship: 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 Adult Children (technical support representative) Documents on File Type Date Recorded Patient Machine Pecan Gatherer Expl anation ACP-Advance Directive ACP-Power of Industrial Economist Latest Code Status on File Code Status Date Activated Date Inactivated Comments Full Code 10/21/2021 4:09 AM Healthcare Agents on File Name Relationship Healthcare Agent Relationshi p Communication Melissakb Dengyer Child Primary Decision Maker deann Gurpreet Child Secondary Decision Maker Documents on File Type Date Recorded Patient Machine Pecan Gatherer Expl anation ACP-Advance Directive ACP-Power of Industrial Economist ACP-Do Not Resuscitate 11/01/2021 7:03 AM Latest Code Status on File Code Status Date Activated Date Inactivated Comments Full Code 10/21/2021 4:09 AM 10/29/2021 7:25 PM Healthcare Agents on File Name Relationship Healthcare Agent Relationshi p Communication Melissakb Dengyer Child Primary Decision Maker deann Gurpreet Child Secondary Decision Maker Documents on File Type Date Recorded Patient Machine Pecan Gatherer Expl anation ACP-Do Not Resuscitate 11/03/2021 10:15 AM ACP-Do Not Resuscitate 11/01/2021 7:03 AM Healthcare Agents on File Name Relationship Healthcare Agent Relationshi p Communication Melissa Gurpreet Child Primary Decision Maker deann Gurpreet Child Secondary Decision Maker Documents on File Type Date Recorded Patient Machine Pecan Gatherer Expl anation ACP-Do Not Resuscitate 11/03/2021 10:15 [...] Documents on File Type Date Recorded Patient Machine Pecan Gatherer Expl anation DNR (Do Not Resuscitate) 10/31/2021 DNR (Do Not Resuscitate) 10/21/2021 Documents on File Type Date Recorded Patient Machine Pecan Gatherer Expl anation DNR (Do Not Resuscitate) 10/31/2021 [...] 5 :00am PRISON LAB WORK March 17 5:00am PRISON LAB WORK March 18 5:00am PRISON LAB WORK March 19 4:00am PRISON LAB WORK March 20 5:00am PRISON LAB WORK March 24 5:00am [...] 01 4:00am PRISON LAB WORK May 05 4 5:00am PRISON LAB WORK May 08, 2024 [...] WORK June 30 5:00am PRISON LAB WORK February 27th, 202 5 5:00am PRISON LAB WORK July 07, 2024 [...] Chief Complaint Admit Date PRISON LAB WORK October 09, 2024 5:0 0am LABWORK October 13, 2024 5:00a m PRISON LAB WORK October 16, 2024 5: 00am PRISON LAB WORK October 20, 2024 4: 00am PRISON LAB WORK October 23, 2024 5: 00am PRISON LAB WORK October 27, 2024 4: 00am PRISON LAB WORK October 30, 2024 6: 35am LABWORK November 03, 2024 5:00 am PRISON LAB WORK November 06, 2024 4:0 0am PRISON LAB WORK November 10, 2024 4:0 0am PRISON LAB WORK November 13, 2024 5: 00am PRISON LAB WORK November 17, 2024 5: 00am PRISON LAB WORK November 20, 2024 5: 00am PRISON LAB WORK November 24, 2024 5: 00am PRISON LAB WORK November 27, 2024 5: 00am LABWORK November 28, 2024 5:00 am LABWORK December 01, 2024 5:00 am PRISON LAB WORK December 02, 2024 4: 00am PRISON LAB WORK December 04, 2024 5: 00am PRISON LAB WORK December 08, 2024 5 :00am LABWORK December 11, 2024 6:0 0am PRISON LAB WORK December 15, 2024 4:00am PRISON LAB WORK December 18, 2024 5:00am PRISON LAB WORK December 22, 2024 4:00am LABWORK December 24, 2024 5: 00am PRISON LAB WORK December 25, 2024 5:00am PRISON LAB WORK December 26, 2024 5:00am LABWORK December 29, 2024 5: 00am PRISON LAB WORK January 01, 2025 5:00am PRISON LAB WORK January 06 5:00am LABWORK January 08, 2025 5:00am PRISON LAB WORK January 12 4:00am PRISON LAB WORK January 15 5:00am LABWORK January 19, 2025 5:00am PRISON LAB WORK January 26 4:00am Chief Complaint Admit Date LABWORK November 03, 2024 5:00 am PRISON LAB WORK November 06, 2024 4:0 0am PRISON LAB WORK November 10, 2024 4:0 0am PRISON LAB WORK November 13, 2024 5: 00am PRISON LAB WORK November 17, 2024 5: 00am PRISON LAB WORK November 20, 2024 5: 00am PRISON LAB WORK November 24, 2024 5: 00am PRISON LAB WORK November 27, 2024 5: 00am LABWORK November 28, 2024 5:00 am LABWORK December 01, 2024 5:00 am PRISON LAB WORK December 02, 2024 4: 00am PRISON LAB WORK December 04, 2024 5: 00am PRISON LAB WORK December 08, 2024 5 :00am LABWORK December 11, 2024 6:0 0am PRISON LAB WORK December 15, 2024 4:00am PRISON LAB WORK December 18, 2024 5:00am PRISON LAB WORK December 22, 2024 4:00am LABWORK December 24, 2024 5: 00am PRISON LAB WORK December 25, 2024 5:00am PRISON LAB WORK December 26, 2024 5:00am LABWORK December 29, 2024 5: 00am PRISON LAB WORK January 01, 2025 5:00am PRISON LAB WORK January 06 5:00am LABWORK January 08, 2025 5:00am PRISON LAB WORK January 12 4:00am PRISON LAB WORK January 15 5:00am LABWORK January 19, 2025 5:00am PRISON LAB WORK January 22 5:00am PRISON LAB WORK January 26 4:00am PRISON LAB WORK January 29 7:30am PRISON LAB WORK February 02 4:00am PRISON LAB WORK February 05, 2025 5:00am PRISON LAB WORK February 16, 2025 4:00am Reason for Referral Specialty Diagnoses / Procedures Referred By Aki kumari Referred To Contact Urology Diagnoses Other fatigue Lanette Munguia DO [address] [place] [address] [facility] [address] [place] [id number] Referral ID Status Reason Start Date Expiration Date V isits Requested Visits Authorized [id number] Open Specialty Services Required 11/01/2021 11/01/2022 1 1 Scheduling Instructions [facility] [place] [address] Specialty Diagnoses / Procedures Referred By Aki kumari Referred To Contact IP Unit Diagnoses Heel ulceration, left, with unspecified severity (HCC) Henry Hidalgo PA [address] [place] [address] [facility] [address] [place] [address] Referral ID Status Reason Start Date Expiration Date V isits Requested Visits Authorized [id number] Open Specialty Services Required 12/22/2021 12/22/2022 1 1 Scheduling Instructions [facility] [address] [place] [address] Comments Please use the parking lot located on Done In :[address] or [address]. There are handicap parking spots located in a small lot beside the wound care entrance off of [address]. Please be advised there is a small incline from those handicap spots to our main door. Bring photo ID and insurance card to photocopy. Wear loose fitting clothing (to easily access wound). Bring list of medications (or can be sent by office). Check in at Registration for your first visit. Please call us directly with any questions [phone]. We look forward to helping you heal. Specialty Diagnoses / Procedures Referred By Contdesiree t Referred To Contact Radiology Diagnoses Left flank pain Calculus of ureter Procedures CT abdomen pelvis wo IV contrast Rebecca Buck MD [address] [place] [address] Referral ID Status Reason Start Date Expiration Date V isits Requested Visits Authorized [id number] Pending Review 08/13/2023 08/12/2024 1 1 Referral ID Status Reason Start Date Expiration Date Visits Re quested Visits Authorized [id number] Closed 08/17/2023 09/16/2023 1 1 Additional Source Comments Source Comments (unrecognize d section and content) In the event this informatio n is protected by the Federal Confidentiality of Alcohol and Drug Abuse Patient Records regulations: The Federal rules restrict any use of the information to criminally investigate or prosecute any alcohol or drug abuse patient.[facility] the event this information is protected by the Federal Confidentiality of Alcohol and Drug Abuse Patient Records regulations: The Federal rules restrict any use of the information to criminally investigate or prosecute any alcohol or drug abuse patient.[facility] (unrecognized sect ion and content) No Status Records FoundNo Status Records FoundNo Status Records FoundNo Status Records FoundNo Status Records FoundNo Status Records FoundNo Status Records FoundNo Status Records FoundNo Status Records FoundNo Status Records Found INFORMATION SOURCE (unrecogn ized section and content) DATE CREATED AUTHOR 05/20/2021 [facility] DATE CREATED AUTHOR AUTHOR'S ORGANIZ ATION 06/07/2021 [facility] DATE CREATED AUTHOR AUTHOR'S ORGANIZ ATION 08/02/2021 [facility] DATE CREATED AUTHOR AUTHOR'S ORGANIZ ATION 12/09/2021 [facility] DATE CREATED AUTHOR AUTHOR'S ORGANIZ ATION 12/29/2021 [facility] DATE CREATED AUTHOR AUTHOR'S ORGANIZ ATION 02/04/2022 [facility] DATE CREATED AUTHOR AUTHOR'S ORGANIZ ATION 03/03/2022 [facility] DATE CREATED AUTHOR AUTHOR'S ORGANIZ ATION 09/15/2023 [facility] DATE CREATED AUTHOR AUTHOR'S ORGANIZ ATION 03/18/2025 [facility] Reason for Visit (unrecogniz ed section and content) Reason Comments Missed Appointment Reason Comments Leg Swelling Blood clots Reason Comments Altered Mental Status Pt presents to ED via [facility] for complaint listed. Pt is [facility]. Pt's LKW was 1000 hours today. Per EMS, pt had a - [place]. Pt denies CP, SOB, and N/V. Pt seems slow to respond, slightly confused at this time. Reason Comments Osteomyelitis Patient from [facility] did xrays on left lower leg and and have concerns for possible osteomyelitis A&Ox2 to self and place, stated year 2022 preside Miss martini Reason Comments Fall Patient had unwitnes sed fall at [facility] landed on butt. Is on [...] Buck MD [address] [place] [address] Referral ID Status Reason Start Date Expiration Date Visits Re quested Visits Authorized [id number] Closed 08/17/2023 09/16/2023 1 1 Reason Comments [...] Status Dates Carlos NOVAK Attending Provider Active [employer] Telephone Clerk Relationship Specialty Start Date End Date Mateus Burris [address] [place] [address] PCP - General Family Practice 11/12/19 [employer] Telephone Clerk Relationship Specialty [place] [address] [place] [address] PCP - General Family Medicine 09/09/20 [employer] Telephone Clerk Relationship Specialty [place] [address] [place] [address] PCP - General Family Medicine 09/09/20 [employer] Telephone Clerk Relationship Specialty [place] [address] [place] [address] PCP - General Family Medicine 09/09/20 [employer] Telephone Clerk Relationship Specialty Start Date End Date Carlos Cavazos MD [address] [place] [address] PCP - General Internal Medicine 02/20/22 Team [...] Monika Staley MD Primary Care Provider Active [employer] Telephone Clerk Relationship Specialty Start Date End Date Carlos Cavazos [address] [place] [phone] PCP - General 12/21/21 Rebecca Buck MD [address] [place] [address] Surgeon Urology 06/25/23 Team Status: Inactive Member [...] NOVAK Attending Provider, Referring Provi lupillo Active [employer] Telephone Clerk Relationship Specialty Start Date End Date Carlos Cavazos [address] [place] [phone] PCP - General 12/21/21 Rebecca Buck MD [address] [address] Surgeon Urology 06/25/23 [employer] Telephone Clerk Relationship Specialty Start Date End Date Carlos Cavazos [address] [place] [phone] PCP - General 12/21/21 Rebecca Buck MD [address] [address] Surgeon Urology 06/25/23 [employer] Telephone Clerk Relationship Specialty Start Date End Date Carlos Cavazos [address] [place] [phone] PCP - General 12/21/21 Rebecca Buck MD [address] [address] Surgeon Urology 06/25/23 [employer] Telephone Clerk Relationship Specialty Start Date End Date Carlos Cavazos [address] [place] [phone] PCP - General 12/21/21 Rebecca Buck MD [address] [address] Surgeon Urology 06/25/23 [employer] Telephone Clerk Relationship Specialty Start Date End Date Carlos Cavazos [address] [place] [phone] PCP - General 12/21/21 Rebecca Buck MD [address] [address] Surgeon Urology 06/25/23 [employer] Telephone Clerk Relationship Specialty Start Date End Date Carlos Cavazos [address] [place] [phone] PCP - General 12/21/21 Rebecca Buck MD [address] [address] Surgeon Urology 06/25/23 Team Status: Inactive Member Role Status Dates Dr. Monika Staley MD Primary Care Provider Active Start: March 13, 2024 End: March 13, 2024 [facility] Attending Provider Active Start: March [...] March 17, 2024 End: March 17, 2024 [facility] Attending Provider Active Start: March 17, 2024 End: March 17, 2024 Team Status: Inactive Member Role Status Dates Dr. Monika Staley MD Primary Care Provider Active Start: March 18, 2024 End: March 18, 2024 [facility] Attending Provider Active Start: March [...] March 20, 2024 End: March 20, 2024 [facility] Attending Provider Active Start: March [...] March 27, 2024 End: March 27, 2024 [facility] Attending Provider Active Start: March [...] Provider Active Start: May 29, 2024 Dr. Knvg NOVAK MD Attending Provider Active Start: May [...] Care Provider Active Start: July 07, 2024 [facility] Attending Provider Active Start: July [...] Status: Active Member Role/Relationship Status Dates Dr. Monkia Staley MD Primary care physician Activ e [...] Rosanne Hoff RN)[phone] (Given - Provider: Katlin Julio, RN) [...] PRIMARY CLINICAL RECORDS. [facility] [employer] [facility]. provides no warranty or guarantee of the accuracy or completeness of information in this document.
[2025-03-19 09:06] LABS: Prothrombin Time (Protime)PT. 21.3 SECONDS (11.7-14.9)
== END ==
LOC: OLS.SANC 05:00
PROVIDERS: PCP General Practice
DX: Z79.01 Long term (current) use of 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 (principal)
CPT/HCPCS: 36415; 85610

== ENCOUNTER → 2025-03-23 | Outpatient (REF) | payer MEDICARE, MEDICAID, SELFPAY ==
--- OUTSIDE RECORDS SUMMARY | 2025-03-23 04:11 | XMS RPT_ITS | CCD ---
Author Organization [facility] Care Team Providers Care Automobile Technician Name Role Phone Mateus Burris Primary [...] Unavailable Carlos Cavazos MD Primary Care Provider [phone] PROVIDER, UNKNOWN Primary Care Unavailable PROVIDER, UNKNOWN [...] VALLADARES, Dr. Monika Horner Primary Care Provider [facility] Attending Provider [phone] Carlos Nelson Attending Provider Jonh Pascual MD, [...] Jonh Cardoza MD, Dr. Monika Horner Primary [facility] Physician Karon Corrales MD Attending Physician Unav ailCarlos Anglin Attending Physician Camelia Corrales MD, Karon Referring Provider Unava evan Staley MD, Dr. Monika Horner Primary [facility] Physician Carlos Nelson Attending Physician Unavailvanessa Corrales [...] OLS, Mahaveer Attending Unavail able [facility] [place] Attending Unavai lable Luís, Shiela Primary Care Unavailable Crisostomo OLS, Babbaljeet Attending Unavailable Luís, Shiela Primary Care Unavailable [facility] [place] Attending Unavai lable Luís, Shiela Primary Care [...] Unavailable Mukkamalla OLS, Carlaaveer Attending Unavail able Líus, Shiela Primary Care Unavailable Katsaros OLS, Carlos [...] Unavailable MukkKaron Hoover Attending Unavail able Luís, [facility] Primary Care Unavailable NubiaKaron Stacy Attending Unavail able Luís, Shiela Primary Care Unavailable NubiaKaron Stacy Attending Unavail able Luís, [facility] Primary Care Unavailable MaribelCarlos Flood Attending Unavailable [place], [facility] Unavailable Allergies Allergy Classification Reported Allergen(s) Allergy Type Date of Onset Reaction(s) Facility (13 sources) [facility]: (15 sources) Alcohol Propensity to adverse reactions to drug 3 Rash, Hives, Other: See Comments, Other [facility] Work Phone: (1 source) Latex Drug Allergy 0 Rash [facility] (8 sources) Cortisone Drug Allergy 2 [facility] (7 sources) Latex Allergy to substance 0 Rash [facility] Medications Current Medications Medication Drug Class(es) Dates Sig (Normalized) Sig (Original) Acetaminophen (10 sources) Start: 10-21-2021 acetaminophen (TYLENOL) tablet 650 mg Start: 09-14-2021 acetaminophen (TYLENOL) 325 MG tablet 650 mg every 6 hours as needed 0 09/14/2021 Active take 2 tablets by [facility] every eight hours acetaminophen (TYLENOL) 325 [...] Start: 11-01-2021 take 1 capsule by [facility] once daily tamsulosin (FLOMAX) 0.4 MG capsule [...] Comment on above: [facility]. Antacid TABS (6 sources) [...] Comment on above: Take 1 capsule by [facility] three times daily. Complete Multi-Vitamin CHEW [...] Active docusate sodium 50 mg / sennosides, fdc 8.6 mg oral tablet (1 source) Start: [...] Units subcutaneously with meals and at bedtime. French Panax Ginseng 100 MG CAPS (8 sources) French Panax Ginseng 100 MG CAPS Quantity: 0 Refills: 0 Ordered: 06-Nov-2019 DO Active French Panax Ginseng 100 MG Oral Capsule (4 sources) French Panax Ginseng 100 MG Oral Capsule Refills: 0 Active French Panax Gin mayuri 100 MG Oral Capsule Refills: 0 DO Active French Panax Ginseng 100 MG Oral Capsule (2 sources) French Panax Gin mayuri 100 MG Oral Capsule [...] once daily. Pentoxifylline (1 source) Blood Viscosity Exam Proctor PENTOXIFYLLINE ORAL Take by mouth. 0 Active Comment on above: Take by mouth. petrolatum 0.41 mg/mg topical ointment (1 source) Start : 08-20 white petrolatum (AQUAPHOR) 41 % topical ointment Apply to affected area once daily. 0 08/20/2021 Active Comment on above: Apply to affected ar ea once daily. 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, [address] PT Coag (PPP) [Time] 25.1 s High 11.7-14.9 [facility] Comment on above: Order Comment: 411-2 Performed By: #### L 300.3900 ####[facility] [address] [place], [address] Prothrombin Time w/INRon INR Coag (PPP) [Relative time] 2.3 {INR} [facility] Comment on above: Order Comment: 411-2 Performed By: #### L 300.3900 ####[facility] [address] [place], [address] PT Coag (PPP) [Time] 25.5 s High 11.7-14.9 [facility] Comment on above: Order Comment: 411-2 Performed By: #### L 300.3900 ####[facility] [address] [place], [address] Prothrombin Time w/INRon INR Coag (PPP) [Relative time] 2.0 {INR} [facility] Comment on above: Order Comment: 411.2 Performed By: #### L 300.3900 ####[facility] [address] [place], [address] PT Coag (PPP) [Time] 22.8 s High 11.7-14.9 [facility] Comment on above: Order Comment: 411.2 Performed By: #### L 300.3900 ####[facility] [address] [place], [address] Prothrombin Time w/INRon INR Coag (PPP) [Relative time] 1.7 {INR} Normal [facility] Comment on above: Order Comment: 411-2 Performed By: #### L 300.3900 ####[facility] [address] [place], [address] PT Coag (PPP) [Time] 20.5 s High 11.7-14.9 [facility] Comment on above: Order Comment: 411-2 Performed By: #### L 300.3900 ####[facility] [address] [place], [address] Prothrombin Time w/INRon INR Coag (PPP) [Relative time] 1.5 {INR} [facility] Comment on above: Order Comment: 411.2 Performed By: #### L 300.3900 ####[facility] [address] [place], [address] PT Coag (PPP) [Time] 18.4 s High 11.7-14.9 [facility] Comment on above: Order Comment: 411.2 Performed By: #### L 300.3900 ####[facility] [address] [place], [address] Prothrombin Time w/INRon INR Coag (PPP) [Relative time] 1.8 {INR} [facility] Comment on above: Order Comment: 411.2 Performed By: #### L 300.3900 ####[facility] [address] [place], [address] PT Coag (PPP) [Time] 21.2 s High 11.7-14.9 [facility] Comment on above: Order Comment: 411.2 Performed By: #### L 300.3900 ####[facility] [address] [place], [place], [phone] International normalized rat io (INR) calculationOrdered By: Carlos Cavazos on 03-02-2025 INR Coag (Bld) [Relative time] 2.2 {INR} [facility] Prothrombin Time w/INRon INR Coag (PPP) [Relative time] 2.2 {INR} [facility] Comment on above: Order Comment: 411-2 Performed By: #### L 300.3900 ####[facility] [address] [place], [place], [phone] Prothrombin timeOrdered By: Carlos Cavazos on 03-02-2025 PT Coag (PPP) [Time] 25.3 s High 11.7-14.9 [facility] Comment on above: Order Comment: 411-2 Performed By: #### L 300.3900 ####[facility] [address] [place], [place], [phone] International normalized rat io (INR) calculationOrdered By: Karon Corrales on 02-26-2025 INR Coag (Bld) [Relative time] 2.2 {INR} [facility] Prothrombin Time w/INRon INR Coag (PPP) [Relative time] 2.2 {INR} [facility] Comment on above: Order Comment: 411.2 Performed By: #### L 300.3900 ####[facility] [address] [place], [address] PT Coag (PPP) [Time] 24.5 s High 11.7-14.9 [facility] Comment on above: Order Comment: 411.2 Performed By: #### L 300.3900 ####[facility] [address] [place], [place], [address] Prothrombin timeOrdered By: Kaorn Corrales on 02-26-2025 PT Coag (PPP) [Time] 24.5 s High 11.7-14.9 [facility] International normalized rat io (INR) calculationOrdered By: Karon Corrales on 02-23-2025 INR Coag (Bld) [Relative time] 2.0 {INR} [facility] Prothrombin Time w/INRon INR Coag (PPP) [Relative time] 2.0 {INR} [facility] Comment on above: Order Comment: 411.2 Performed By: #### L 300.3900 ####[facility] [address] [place], [place], [address] PT Coag (PPP) [Time] 23.5 s High 11.7-14.9 [facility] Comment on above: Order Comment: 411.2 Performed By: #### L 300.3900 ####[facility] [address] [place], [place], [address] Prothrombin timeOrdered By: Karon Corrales on 02-23-2025 PT Coag (PPP) [Time] 23.5 s High 11.7-14.9 [facility] International normalized rat io (INR) calculationOrdered By: Karon Corrales on 02-19-2025 INR Coag (Bld) [Relative time] 1.9 {INR} [facility] Prothrombin Time w/INRon INR Coag (PPP) [Relative time] 1.9 {INR} [facility] Comment on above: Order Comment: 411.2 Performed By: #### L 300.3900 ####[facility] [address] [place], [address]) PT Coag (PPP) [Time] 21.8 s High 11.7-14.9 [facility] Comment on above: Order Comment: 411.2 Performed By: #### L 300.3900 ####[facility] [address] [place], [place], [address] Prothrombin timeOrdered By: Karon Corrales on 02-19-2025 PT Coag (PPP) [Time] 21.8 s High 11.7-14.9 [facility] International normalized rat io (INR) calculationOrdered By: Karon Corrales on 02-16-2025 INR Coag (Bld) [Relative time] 1.5 {INR} [facility] Prothrombin Time w/INRon INR Coag (PPP) [Relative time] 1.5 {INR} [facility] Comment on above: Order Comment: 411.2 Performed By: #### L 300.3900 ####[facility] [address] [place], [place], [address] PT Coag (PPP) [Time] 18.6 s High 11.7-14.9 [facility] Comment on above: Order Comment: 411.2 Performed By: #### L 300.3900 ####[facility] [address] [place], [place], [address] Prothrombin timeOrdered By: Karon Corrales on 02-16-2025 PT Coag (PPP) [Time] 18.6 s High 11.7-14.9 [facility] International normalized rat io (INR) calculationOrdered By: Karon Corrales on 02-12-2025 INR Coag (Bld) [Relative time] 2.5 {INR} [facility] Prothrombin Time w/INRon INR Coag (PPP) [Relative time] 2.5 {INR} [facility] Comment on above: Order Comment: 411.2 Performed By: #### L 300.3900 ####[facility] [address] [place], [address] PT Coag (PPP) [Time] 27.5 s High 11.7-14.9 [facility] Comment on above: Order Comment: 411.2 Performed By: #### L 300.3900 ####[facility] [address] [place], [address] Prothrombin timeOrdered By: Karon Corrales on 02-12-2025 PT Coag (PPP) [Time] 27.5 s High 11.7-14.9 [facility] International normalized rat io (INR) calculationOrdered By: Carlos Cavazos on 02-09-2025 INR Coag (Bld) [Relative time] 2.5 {INR} [facility] Prothrombin Time w/INRon INR Coag (PPP) [Relative time] 2.5 {INR} [facility] Comment on above: Order Comment: 411-2 Performed By: #### L 300.3900 ####[facility] [address] [place], [address] INR Normal [facility] Comment on above: Order Comment: 411.2 Result Comment: MISS ING TUBE Performed By: #### L 300.3900 ####[facility] [address] [place], [address] PROTIME Normal 11.7-14.9 [facility] Comment on above: Order Comment: 411.2 Result Comment: MISS ING TUBE Performed By: #### L 300.3900 ####[facility] [address] [place], [address] Prothrombin timeOrdered By: Carlos Cavazos on 02-09-2025 PT Coag (PPP) [Time] 27.2 s High 11.7-14.9 [facility] Comment on above: Order Comment: 411-2 Performed By: #### L 300.3900 ####[facility] [address] [place], [address] International normalized rat io (INR) calculationOrdered By: Karon Corrales on 02-05-2025 INR Coag (Bld) [Relative time] 2.5 {INR} [facility] Prothrombin Time w/INRon INR Coag (PPP) [Relative time] 2.5 {INR} [facility] Comment on above: Order Comment: 411.2 Performed By: #### L 300.3900 ####[facility] [address] [place], [address] PT Coag (PPP) [Time] 27.6 s High 11.7-14.9 [facility] Comment on above: Order Comment: 411.2 Performed By: #### L 300.3900 ####[facility] [address] [place], [place], [phone] Prothrombin timeOrdered By: Karon Corrales on 02-05-2025 PT Coag (PPP) [Time] 27.6 s High 11.7-14.9 [facility] International normalized rat io (INR) calculationOrdered By: Karon Corrales on 02-02-2025 INR Coag (Bld) [Relative time] 2.4 {INR} [facility] Prothrombin Time w/INRon INR Coag (PPP) [Relative time] 2.4 {INR} [facility] Comment on above: Order Comment: 411.2 Performed By: #### L 300.3900 ####[facility] [address] [place], [address] PT Coag (PPP) [Time] 26.8 s High 11.7-14.9 [facility] Comment on above: Order Comment: 411.2 Performed By: #### L 300.3900 ####[facility] [address] [place], [place], [phone] Prothrombin timeOrdered By: Karon Corrales on 02-02-2025 PT Coag (PPP) [Time] 26.8 s High 11.7-14.9 [facility] International normalized rat io (INR) calculationOrdered By: Karon Corrales on 01-29-2025 INR Coag (Bld) [Relative time] 2.7 {INR} [facility] Prothrombin Time w/INRon INR Coag (PPP) [Relative time] 2.7 {INR} [facility] Comment on above: Performed By: #### L 300.3900 ####[facility] [address] [place], [place], [phone]) PT Coag (PPP) [Time] 29.1 s High 11.7-14.9 [facility] Comment on above: Performed By: #### L 300.3900 ####[facility] [address] [place], [place], [phone]) Prothrombin timeOrdered By: Karon Corrales on 01-29-2025 PT Coag (PPP) [Time] 29.1 s High 11.7-14.9 [facility] International normalized rat io (INR) calculationOrdered By: Karon Corrales on 01-26-2025 INR Coag (Bld) [Relative time] 2.0 {INR} [facility] Prothrombin Time w/INRon INR Coag (PPP) [Relative time] 2.0 {INR} [facility] Comment on above: Order Comment: 411.2 Performed By: #### L 300.3900 ####[facility] [address] [place], [place], [phone]) PT Coag (PPP) [Time] 23.1 s High 11.7-14.9 [facility] Comment on above: Order Comment: 411.2 Performed By: #### L 300.3900 ####[facility] [address] [place], [place], [phone]) Prothrombin timeOrdered By: Karon Corrales on 01-26-2025 PT Coag (PPP) [Time] 23.1 s High 11.7-14.9 [facility] International normalized rat io (INR) calculationOrdered By: Karon Corrales on 01-22-2025 INR Coag (Bld) [Relative time] 2.4 {INR} [facility] Prothrombin Time w/INRon INR Coag (PPP) [Relative time] 2.4 {INR} [facility] Comment on above: Order Comment: 411.2 Performed By: #### L 300.3900 ####[facility] [address] [place], [address] PT Coag (PPP) [Time] 26.6 s High 11.7-14.9 [facility] Comment on above: Order Comment: 411.2 Performed By: #### L 300.3900 ####[facility] [address] [place], [address] Prothrombin timeOrdered By: Karon Corrales on 01-22-2025 PT Coag (PPP) [Time] 26.6 s High 11.7-14.9 [facility] International normalized rat io (INR) calculationOrdered By: Carlos Cavazos on 01-19-2025 INR Coag (Bld) [Relative time] 2.7 {INR} [facility] Prothrombin Time w/INRon INR Coag (PPP) [Relative time] 2.7 {INR} [facility] Comment on above: Order Comment: 411-2 Performed By: #### L 300.3900 ####[facility] [address] [place], [address] PT Coag (PPP) [Time] 29.7 s High 11.7-14.9 [facility] Comment on above: Order Comment: 411-2 Performed By: #### L 300.3900 ####[facility] [address] [place], [address] Prothrombin timeOrdered By: Carlos Cavazos on 01-19-2025 PT Coag (PPP) [Time] 29.7 s High 11.7-14.9 [facility] International normalized rat io (INR) calculationOrdered By: Karon Corrales on 01-15-2025 INR Coag (Bld) [Relative time] 2.4 {INR} [facility] Prothrombin Time w/INRon INR Coag (PPP) [Relative time] 2.4 {INR} [facility] Comment on above: Order Comment: 411.1 Performed By: #### L 300.3900 ####[facility] [address] [place], [place], [address] PT Coag (PPP) [Time] 26.6 s High 11.7-14.9 [facility] Comment on above: Order Comment: 411.1 Performed By: #### L 300.3900 ####[facility] [address] [place], [place], [address] Prothrombin timeOrdered By: Karon Corrales on 01-15-2025 PT Coag (PPP) [Time] 26.6 s High 11.7-14.9 [facility] KEPPRA (LEVETIRACETAM)on KEPPRA 30.1 ug/mL Normal 10.0-40.0 [facility] Comment on above: Order Comment: 411.1 Result Comment: Perf ormed at: [facility] [address] [id number] Director: Alpesh Vázquez MD, Phone: [phone] Performed By: #### L 2150.0000, L470.7030 ####[facility] [address] [place], [place], [address] International normalized rat io (INR) calculationOrdered By: Karon Corrales on 01-12-2025 INR Coag (Bld) [Relative time] 2.3 {INR} [facility] LevetiracetamOrdered By: Carla Corrales on 01-12-2025 levETIRAcetam [Mass/Vol] 30.1 ug/mL 10.0-40.0 [facility] Comment on above: Performed at: - [facility] [address] [id number] Director: Alpesh Vázquez MD, Phone: [phone] Prothrombin Time w/INRon INR Coag (PPP) [Relative time] 2.3 {INR} Normal [facility] Comment on above: Order Comment: 411.1 Performed By: #### L 3310.0000, L300.3900 ####[facility] [address], [address] PT Coag (PPP) [Time] 26.1 s High 11.7-14.9 [facility] Comment on above: Order Comment: 411.1 Performed By: #### L 3310.0000, L300.3900 ####[facility] [address] [place], [address] Prothrombin timeOrdered By: Karon Corrales on 01-12-2025 PT Coag (PPP) [Time] 26.1 s High 11.7-14.9 [facility] KEPPRA (LEVETIRACETAM)on KEPPRA 27.6 ug/mL Normal 10.0-40.0 [facility] Comment on above: Order Comment: 411.1 Result Comment: Perf ormed at: - [facility] [address] [id number] Director: Alpesh Vázquez MD, Phone: [phone] Performed By: #### L 3310.0000, L300.3900 ####[facility] [address] [place], [address] International normalized rat io (INR) calculationOrdered By: Karon Corrales on 01-08-2025 INR Coag (Bld) [Relative time] 2.2 {INR} [facility] Prothrombin Time w/INRon INR Coag (PPP) [Relative time] 2.2 {INR} Normal [facility] Comment on above: Order Comment: 411.1 Performed By: #### L 300.3900 ####[facility] [address] [place], [address] PT Coag (PPP) [Time] 24.5 s High 11.7-14.9 [facility] Comment on above: Order Comment: 411.1 Performed By: #### L 300.3900 ####[facility] [address] [place], [address] Prothrombin timeOrdered By: Karon Corrales on 01-08-2025 PT Coag (PPP) [Time] 24.5 s High 11.7-14.9 [facility] International normalized rat io (INR) calculationOrdered By: Karon Corrales on 01-06-2025 INR Coag (Bld) [Relative time] 3.2 {INR} [facility] LevetiracetamOrdered By: Carla Corrales on 01-06-2025 levETIRAcetam [Mass/Vol] 27.6 ug/mL 10.0-40.0 [facility] Comment on above: Performed at: [address] [id number] Director: Alpesh Vázquez MD, Phone: [phone] Prothrombin Time w/INRon INR Coag (PPP) [Relative time] 3.2 {INR} Normal [facility] Comment on above: Order Comment: 411.1 Performed By: #### L 3310.0000, L300.3900 ####[facility] [address] [place], [address] PT Coag (PPP) [Time] 33.1 s High 11.7-14.9 [facility] Comment on above: Order Comment: 411.1 Performed By: #### L 3310.0000, L300.3900 ####[facility] [address] [place], [place], [address] Prothrombin timeOrdered By: Karon Corrales on 01-06-2025 PT Coag (PPP) [Time] 33.1 s High 11.7-14.9 [facility] International normalized rat io (INR) calculationOrdered By: Karon Corrales on 01-01-2025 INR Coag (Bld) [Relative time] 2.7 {INR} [facility] Prothrombin Time w/INRon INR Coag (PPP) [Relative time] 2.7 {INR} Normal [facility] Comment on above: Order Comment: 411.1 Performed By: #### L 3003900 ####[facility] [address] [place], [place], [address] Prothrombin timeOrdered By: Karon Corrales on 01-01-2025 PT Coag (PPP) [Time] 29.1 s High 11.7-14.9 [facility] Comment on above: Order Comment: 411.1 Performed By: #### L 3003900 ####[facility] [address] [place], [place], [address] KEPPRA (LEVETIRACETAM)on KEPPRA 31.8 ug/mL Normal 10.0-40.0 [facility] Comment on above: Order Comment: 411-1 Result Comment: [facility]med at: [facility] [place], [place] [id number] Director: Alpesh Vázquez MD, Phone: [phone] Performed By: #### L 3310.0000, L314.9871 ####[facility] [address] [place], [place], [address] International normalized rat io (INR) calculationOrdered By: Carlos Cavazos on 12-29-2024 INR Coag (Bld) [Relative time] 3.3 {INR} [facility] KEPPRA (LEVETIRACETAM)on KEPPRA 33.3 ug/mL Normal 10.0-40.0 [facility] Comment on above: Order Comment: 411.1 Result Comment: Perf ormed at: [employer] [facility] [address] [id number] Director: Alpesh Vázquez MD, Phone: [phone] Performed By: #### L 3310.0000 ####[facility] [address] [facility] [address] LevetiracetamOrdered By: Ted Cavazos on 12-29-2024 levETIRAcetam [Mass/Vol] 31.8 ug/mL 10.0-40.0 [facility] Comment on above: Performed at: [facility] [address] [id number] Director: Alpesh Vázquez MD, Phone: [phone] Prothrombin Time w/INRon INR Coag (PPP) [Relative time] 3.3 {INR} Normal [facility] Comment on above: Order Comment: 411-1 Performed By: #### L 3310.0000, L300.3900 ####[facility] [address] [place], [address] Prothrombin timeOrdered By: Carlos Cavazos on 12-29-2024 PT Coag (PPP) [Time] 34.0 s High 11.7-14.9 [facility] Comment on above: Order Comment: 411-1 Performed By: #### L 3310.0000, L300.3900 ####[facility] [address] [place], [place], [address] LevetiracetamOrdered By: Carla Corrales on 12-26-2024 levETIRAcetam [Mass/Vol] 33.3 ug/mL 10.0-40.0 [facility] Comment on above: Performed at: [facility] [address], [place] [id number] Director: Alpesh Vázquez MD, Phone: [phone] International normalized rat io (INR) calculationOrdered By: Karon Corrales on 12-25-2024 INR Coag (Bld) [Relative time] 2.8 {INR} [facility] Prothrombin Time w/INRon INR Coag (PPP) [Relative time] 2.8 {INR} Normal [facility] Comment on above: Order Comment: 411.1 Performed By: #### L 300.3900 ####[facility] [address] [place], [address] Prothrombin timeOrdered By: Karon Corrales on 12-25-2024 PT Coag (PPP) [Time] 30.0 s High 11.7-14.9 [facility] Comment on above: Order Comment: 411.1 Performed By: #### L 300.3900 ####[facility] [address] [place], [address] Anion gap in Serum or Plasma Ordered By: Carlos Cavazos on 12-24-2024 Anion gap [Moles/Vol] 13 mmol/L 09-18 [facility] BUN/creatinine ratioOrdered By: Carlos Cavazos on 12-24-2024 Urea nitrogen/Creatinine [Mass ratio] 19.2 mg/mg 02-23 [facility] Basic Metabolic Profile (BMP )on 12-24-2024 BUN/CRE 19.2 RATIO Normal 02-23 [facility] Comment on above: Order Comment: 411-1 Performed By: #### L 500.2500, L100.0500 ####[facility] [address] [place], [address] Calcium [Mass/Vol] 8.8 mg/dL Normal 7.6-11.0 [facility] Comment on above: Order Comment: 411-1 Performed By: #### L 500.2500, L100.0500 ####[facility] [address] [place], [address] Chloride [Moles/Vol] 103 mmol/L Normal 98-108 [facility] Comment on above: Order Comment: 411-1 Performed By: #### L 500.2500, L100.0500 ####[facility] [address] [place], [address] CO2 [Moles/Vol] 23.7 mmol/L Normal 21.0-32.0 [facility] Comment on above: Order Comment: 411-1 Performed By: #### L 500.2500, L100.0500 ####[facility] [address] [place], [address] Creatinine [Mass/Vol] 0.82 mg/dL Normal 0.70-1.20 [facility] Comment on above: Order Comment: 411-1 Performed By: #### L 500.2500, L100.0500 ####[facility] [address] [place], [address] GAP 13 Normal 5-15 [facility] Comment on above: Order Comment: 411-1 Performed By: #### L 500.2500, L100.0500 ####[facility] [address] [place], [address] GFR/1.73 sq M.predicted among non-blacks MDRD (S/P/Bld) [Vol rate/Area] 93 mL/min/{1.73_m2} Normal >60 [facility] Comment on above: Order Comment: 411-1 Result Comment: mL/m in/1.73m2 CKD-EPI Creatinine Equation (2020) Performed By: #### L 500.2500, L100.0500 ####[facility] [address] [place], [address] Glucose [Mass/Vol] 88 mg/dL Normal 70-99 [facility] Comment on above: Order Comment: 411-1 Performed By: #### L 500.2500, L100.0500 ####[facility] [address] [place], [address] Potassium [Moles/Vol] 4.2 mmol/L Normal 3.3-5.1 [facility] Comment on above: Order Comment: 411-1 Performed By: #### L 500.2500, L100.0500 ####[facility] [address] [place], [address] Sodium [Moles/Vol] 139 mmol/L Normal 133-145 [facility] Comment on above: Order Comment: 411-1 Performed By: #### L 500.2500, L100.0500 ####[facility] [address] [place], [address] Urea nitrogen [Mass/Vol] 16 mg/dL Normal 4-19 [facility] Comment on above: Order Comment: 411-1 Performed By: #### L 500.2500, L100.0500 ####[facility] [address] [place], [address] CBC-Complete Blood Cnt No Di ffon 12-24-2024 Erythrocyte distribution width (RBC) [Ratio] 15.4 % High 11.6-14.6 [facility] Comment on above: Order Comment: 411-1 Performed By: #### L 500.2500, L100.0500 ####[facility] [address] [place], [address] Hematocrit (Bld) [Volume fraction] 39.8 % Low 40-54 [facility] Comment on above: Order Comment: 411-1 Performed By: #### L 500.2500, L100.0500 ####[facility] [address] [place], [address] Hemoglobin (Bld) [Mass/Vol] 12.4 g/dL Low 13.0-16.5 [facility] Comment on above: Order Comment: 411-1 Performed By: #### L 500.2500, L100.0500 ####[facility] [address] [place], [address] MCH (RBC) [Entitic mass] 26.6 pg Low 27.0-32.0 [facility] Comment on above: Order Comment: 411-1 Performed By: #### L 500.2500, L100.0500 ####[facility] [address] [place], [address] MCHC (RBC) [Mass/Vol] 31.2 g/dL Low 32-36 [facility] Comment on above: Order Comment: 411-1 Performed By: #### L 500.2500, L100.0500 ####[facility] [address] [place], [address] MCV (RBC) [Entitic vol] 85.4 fL Normal 80-94 [facility] Comment on above: Order Comment: 411-1 Performed By: #### L 500.2500, L100.0500 ####[facility] [address] [place], [address] Platelet mean volume (Bld) [Entitic vol] 10.4 fL Normal 6.2-12.0 [facility] Comment on above: Order Comment: 411-1 Performed By: #### L 500.2500, L100.0500 ####[facility] [address] [place], [address] Platelets (Bld) [#/Vol] 290 10*3/uL Normal 150-450 [facility] Comment on above: Order Comment: 411-1 Performed By: #### L 500.2500, L100.0500 ####[facility] [address] [place], [address] RBC (Bld) [#/Vol] 4.66 10*6/uL Normal 4.6-6.2 [facility] Comment on above: Order Comment: 411-1 Performed By: #### L 500.2500, L100.0500 ####[facility] [address] [place], [address] RDW SD 48.1 fl High 35.1-43.9 [facility] Comment on above: Order Comment: 411-1 Performed By: #### L 500.2500, L100.0500 ####[facility] [address] [place], [address] WBC (Bld) [#/Vol] 16.6 10*3/uL High 4.4-11.0 [facility] Comment on above: Order Comment: 411-1 Performed By: #### L 500.2500, L100.0500 ####[facility] [address] [place], [address] Carbon dioxide, total [Moles /volume] in Central venous bloodOrdered By: Carlos Cavazos on 12-24-2024 CO2 [Moles/Vol] 23.7 mmol/L 21.0-32.0 [facility] Chloride assayOrdered By: Sharif Crouch on 12-24-2024 Chloride [Moles/Vol] 103 mmol/L 98-108 [facility] Erythrocyte distribution wid th ratioOrdered By: Carlos Cavazos on 12-24-2024 Erythrocyte distribution width (RBC) [Ratio] 15.4 % High 11.6-14.6 [facility] Erythrocyte distribution wid th standard deviationOrdered By: Carlos Cavazos on 12-24-2024 Erythrocyte distribution width (RBC) [Ratio] 48.1 fl High 35.1-43.9 [facility] Glomerular filtration rate ( GFR) estimation/1.73 sq m using serum, plasma, or whole bOrdered By: Carlos Cavazos on 12-24-2024 GFR/1.73 sq M.predicted among non-blacks MDRD (S/P/Bld) [Vol rate/Area] 93 mL/min/{1.73_m2} >60 [facility] Comment on above: mL/min/1.73m2 CKD-EP I Creatinine Equation (2020) Hematocrit Auto (Bld) [Volum e fraction]Ordered By: Carlos Cavazos on 12-24-2024 Hematocrit (Bld) [Volume fraction] 39.8 % Low 40-54 [facility] Hemoglobin measurementOrdere d By: Carlos Cavazos on 12-24-2024 Hemoglobin (Bld) [Mass/Vol] 12.4 g/dL Low 13.0-16.5 [facility] MCV (mean corpuscular volume ) determinationOrdered By: Carlos Cavazos on 12-24-2024 MCV (RBC) [Entitic vol] 85.4 fL 80-94 [facility] Mean corpuscular hemoglobin (MCH) determinationOrdered By: Carlos Cavazos on 12-24-2024 MCH (RBC) [Entitic mass] 26.6 pg Low 27.0-32.0 [facility] Mean corpuscular hemoglobin concentration (MCHC) determinationOrdered By: Carlos Cavazos on 12-24-2024 MCHC (RBC) [Mass/Vol] 31.2 g/dL Low 32-36 [facility] Mean platelet volume determi nationOrdered By: Carlos Cavazos on 12-24-2024 Platelet mean volume (Bld) [Entitic vol] 10.4 fL 6.2-12.0 [facility] Platelet countOrdered By: Sharif Crouch on 12-24-2024 Platelets (Bld) [#/Vol] 290 10*3/uL 150-450 [facility] Potassium measurement (mass/ volume)Ordered By: Carlos Cavazos on 12-24-2024 Potassium (Unsp spec) [Mass/Vol] 4.2 mmol/L 3.3-5.1 [facility] RBC Auto (Bld) [#/Vol]Ordere d By: Carlos Cavazos on 12-24-2024 RBC (Bld) [#/Vol] 4.66 10*6/uL 4.6-6.2 [facility] Serum creatinine measurement (mass/volume)Ordered By: Carlos Cavazos on 12-24-2024 Creatinine [Mass/Vol] 0.82 mg/dL 0.70-1.20 [facility] Serum glucose measurement (m ass/volume)Ordered By: Carlos Cavazos on 12-24-2024 Glucose [Mass/Vol] 88 mg/dL 70-99 [facility] Serum or plasma calcium oral urement (mass/volume)Ordered By: Carlos Cavazos on 12-24-2024 Calcium [Mass/Vol] 8.8 mg/dL 7.6-11.0 [facility] Serum or plasma urea nitroge n measurement (mass/volume)Ordered By: Carlos Cavazos on 12-24-2024 Urea nitrogen [Mass/Vol] 16 mg/dL 4-19 [facility] Sodium levelOrdered By: Moe Cavazos on 12-24-2024 Sodium [Moles/Vol] 139 mmol/L 133-145 [facility] White blood cell (WBC) count Ordered By: Carlos Cavazos on 12-24-2024 WBC (Bld) [#/Vol] 16.6 10*3/uL High 4.4-11.0 [facility] International normalized rat io (INR) calculationOrdered By: Karon Corrales on 12-22-2024 INR Coag (Bld) [Relative time] 2.6 {INR} [facility] Prothrombin Time w/INRon INR Coag (PPP) [Relative time] 2.6 {INR} Normal [facility] Comment on above: Order Comment: 411.1 Performed By: #### L 300.9739 ####[facility] [address] [facility] [place], [place], [id number] PT Coag (PPP) [Time] 28.8 s High 11.7-14.9 [facility] Comment on above: Order Comment: 411.1 Performed By: #### L 300.3900 ####[facility] [address] [facility] [place], [place], [address] Prothrombin timeOrdered By: Karon Corrales on 12-22-2024 PT Coag (PPP) [Time] 28.8 s High 11.7-14.9 [facility] International normalized rat io (INR) calculationOrdered By: Karon Corrales on 12-18-2024 INR Coag (Bld) [Relative time] 2.4 {INR} [facility] Prothrombin Time w/INRon INR Coag (PPP) [Relative time] 2.4 {INR} Normal [facility] Comment on above: Order Comment: 411.1 Performed By: #### L 300.3900 ####[facility] [address] [place], [place], [phone] PT Coag (PPP) [Time] 26.7 s High 11.7-14.9 [facility] Comment on above: Order Comment: 411.1 Performed By: #### L 300.3900 ####[facility] [address] [place], [place], [address] Prothrombin timeOrdered By: Karon Corrales on 12-18-2024 PT Coag (PPP) [Time] 26.7 s High 11.7-14.9 [facility] International normalized rat io (INR) calculationOrdered By: Karon Corrales on 12-15-2024 INR Coag (Bld) [Relative time] 2.3 {INR} [facility] Prothrombin Time w/INRon INR Coag (PPP) [Relative time] 2.3 {INR} Normal [facility] Comment on above: Order Comment: 411.1 Performed By: #### L 300.3900 ####[facility] [address] [place], [place], [address] Prothrombin timeOrdered By: Karon Corrales on 12-15-2024 PT Coag (PPP) [Time] 25.7 s High 11.7-14.9 [facility] Comment on above: Order Comment: 411.1 Performed By: #### L 300.3900 ####[facility] [address] [place], [place], [phone] International normalized rat io (INR) calculationOrdered By: Carlos Cavazos on 12-11-2024 INR Coag (Bld) [Relative time] 2.2 {INR} [facility] Prothrombin Time w/INRon INR Coag (PPP) [Relative time] 2.2 {INR} Normal [facility] Comment on above: Order Comment: 411-1 Performed By: #### L 300.3900 ####[facility] [address] [place], [address] Prothrombin timeOrdered By: Carlos Cavazos on 12-11-2024 PT Coag (PPP) [Time] 24.7 s High 11.7-14.9 [facility] Comment on above: Order Comment: 411-1 Performed By: #### L 300.3900 ####[facility] [address] [place], [place], [id number] International normalized rat io (INR) calculationOrdered By: Karon Corrales on 12-08-2024 INR Coag (Bld) [Relative time] 2.2 {INR} [facility] Prothrombin Time w/INRon INR Coag (PPP) [Relative time] 2.2 {INR} Normal [facility] Comment on above: Order Comment: 411.1 Performed By: #### L 300.3900 ####[facility] [address] [place], [address] PT Coag (PPP) [Time] 25.0 s High 11.7-14.9 [facility] Comment on above: Order Comment: 411.1 Performed By: #### L 300.3900 ####[facility] [address] [place], [place], [phone] Prothrombin timeOrdered By: Karon Corrales on 12-08-2024 PT Coag (PPP) [Time] 25.0 s High 11.7-14.9 [facility] International normalized rat io (INR) calculationOrdered By: Karon Corrales on 12-04-2024 INR Coag (Bld) [Relative time] 2.3 {INR} [facility] Prothrombin Time w/INRon INR Coag (PPP) [Relative time] 2.3 {INR} Normal [facility] Comment on above: Order Comment: 411.1 Performed By: #### L 300.3900 ####[facility] [address] [place], [address] PT Coag (PPP) [Time] 25.9 s High 11.7-14.9 [facility] Comment on above: Order Comment: 411.1 Performed By: #### L 300.3900 ####[facility] [address] [place], [address] Prothrombin timeOrdered By: Karon Corrales on 12-04-2024 PT Coag (PPP) [Time] 25.9 s High 11.7-14.9 [facility] International normalized rat io (INR) calculationOrdered By: Karon Corrales on 12-02-2024 INR Coag (Bld) [Relative time] 2.5 {INR} [facility] Prothrombin Time w/INRon INR Coag (PPP) [Relative time] 2.5 {INR} Normal [facility] Comment on above: Order Comment: 411.1 Performed By: #### L 300.3900 ####[facility] [address] [place], [address] PT Coag (PPP) [Time] 27.3 s High 11.7-14.9 [facility] Comment on above: Order Comment: 411.1 Performed By: #### L 300.3900 ####[facility] [address] [place], [address] Prothrombin timeOrdered By: Karon Corrales on 12-02-2024 PT Coag (PPP) [Time] 27.3 s High 11.7-14.9 [facility] International normalized rat io (INR) calculationOrdered By: Carlos Cavazos on 12-01-2024 INR Coag (Bld) [Relative time] 2.3 {INR} [facility] Prothrombin Time w/INRon INR Coag (PPP) [Relative time] 2.3 {INR} Normal [facility] Comment on above: Order Comment: 411-1 Performed By: #### L 300.3900 ####[facility] [address] [place], [address] PT Coag (PPP) [Time] 26.0 s High 11.7-14.9 [facility] Comment on above: Order Comment: 411-1 Performed By: #### L 300.3900 ####[facility] [address] [place], [address] Prothrombin timeOrdered By: Carlos Cavazos on 12-01-2024 PT Coag (PPP) [Time] 26.0 s High 11.7-14.9 [facility] International normalized rat io (INR) calculationOrdered By: Carlos Cavazos on 11-28-2024 INR Coag (Bld) [Relative time] 3.1 {INR} [facility] Prothrombin Time w/INRon INR Coag (PPP) [Relative time] 3.1 {INR} Normal [facility] Comment on above: Order Comment: 411-1 Performed By: #### L 300.3900 ####[facility] [address] [place], [address] PT Coag (PPP) [Time] 32.8 s High 11.7-14.9 [facility] Comment on above: Order Comment: 411-1 Performed By: #### L 300.3900 ####[facility] [address] [place], [address] Prothrombin timeOrdered By: Carlos Cavazos on 11-28-2024 PT Coag (PPP) [Time] 32.8 s High 11.7-14.9 [facility] International normalized rat io (INR) calculationOrdered By: Karon Corrales on 11-27-2024 INR Coag (Bld) [Relative time] 3.3 {INR} [facility] Prothrombin Time w/INRon INR Coag (PPP) [Relative time] 3.3 {INR} Normal [facility] Comment on above: Order Comment: 411.1 Performed By: #### L 300.3900 ####[facility] [address] [place], [place], [phone] PT Coag (PPP) [Time] 34.3 s High 11.7-14.9 [facility] Comment on above: Order Comment: 411.1 Performed By: #### L 300.3900 ####[facility] [address] [place], [place], [phone] Prothrombin timeOrdered By: Karon Corrales on 11-27-2024 PT Coag (PPP) [Time] 34.3 s High 11.7-14.9 [facility] International normalized rat io (INR) calculationOrdered By: Karon Corrales on 11-24-2024 INR Coag (Bld) [Relative time] 2.8 {INR} [facility] Prothrombin Time w/INRon INR Coag (PPP) [Relative time] 2.8 {INR} Normal [facility] Comment on above: Order Comment: 411.2 Performed By: #### L 300.3900 ####[facility] [address] [place], [place], [phone] PT Coag (PPP) [Time] 30.0 s High 11.7-14.9 [facility] Comment on above: Order Comment: 411.2 Performed By: #### L 300.3900 ####[facility] [address] [place], [place], [phone]41) Prothrombin timeOrdered By: Karon Corrales on 11-24-2024 PT Coag (PPP) [Time] 30.0 s High 11.7-14.9 [facility] International normalized rat io (INR) calculationOrdered By: Karon Corrales on 11-20-2024 INR Coag (Bld) [Relative time] 3.0 {INR} [facility] Prothrombin Time w/INRon INR Coag (PPP) [Relative time] 3.0 {INR} Normal [facility] Comment on above: Order Comment: 411.2 Performed By: #### L 300.3900 ####[facility] [address] [place], [place], [phone] PT Coag (PPP) [Time] 32.0 s High 11.7-14.9 [facility] Comment on above: Order Comment: 411.2 Performed By: #### L 300.3900 ####[facility] [address] [place], [place], [phone](139) Prothrombin timeOrdered By: Karon Corrales on 11-20-2024 PT Coag (PPP) [Time] 32.0 s High 11.7-14.9 [facility] International normalized rat io (INR) calculationOrdered By: Karon Corrales on 11-17-2024 INR Coag (Bld) [Relative time] 2.9 {INR} [facility] Prothrombin Time w/INRon INR Coag (PPP) [Relative time] 2.9 {INR} Normal [facility] Comment on above: Order Comment: 411.2 Performed By: #### L 300.3900 ####[facility] [address] [place], [place], [phone] PT Coag (PPP) [Time] 30.7 s High 11.7-14.9 [facility] Comment on above: Order Comment: 411.2 Performed By: #### L 300.3900 ####[facility] [address] [place], [place], [phone](964) Prothrombin timeOrdered By: Karon Corrales on 11-17-2024 PT Coag (PPP) [Time] 30.7 s High 11.7-14.9 [facility] International normalized rat io (INR) calculationOrdered By: Karon Corrales on 11-13-2024 INR Coag (Bld) [Relative time] 2.2 {INR} [facility] Prothrombin Time w/INRon INR Coag (PPP) [Relative time] 2.2 {INR} Normal [facility] Comment on above: Order Comment: 411.2 Performed By: #### L 300.3900 ####[facility] [address] [place], [place], [phone] PT Coag (PPP) [Time] 24.7 s High 11.7-14.9 [facility] Comment on above: Order Comment: 411.2 Performed By: #### L 300.3900 ####[facility] [address] [place], [place], [phone](400) Prothrombin timeOrdered By: Karon Corrales on 11-13-2024 PT Coag (PPP) [Time] 24.7 s High 11.7-14.9 [facility] International normalized rat io (INR) calculationOrdered By: Karon Corrales on 11-10-2024 INR Coag (Bld) [Relative time] 2.6 {INR} [facility] Prothrombin Time w/INRon INR Coag (PPP) [Relative time] 2.6 {INR} Normal [facility] Comment on above: Order Comment: 411.2 Performed By: #### L 300.3900 ####[facility] [address] [place], [address] PT Coag (PPP) [Time] 28.7 s High 11.7-14.9 [facility] Comment on above: Order Comment: 411.2 Performed By: #### L 300.3900 ####[facility] [address] [place], [place], [phone] Prothrombin timeOrdered By: Karon Corrales on 11-10-2024 PT Coag (PPP) [Time] 28.7 s High 11.7-14.9 [facility] International normalized rat io (INR) calculationOrdered By: Karon Corrales on 11-06-2024 INR Coag (Bld) [Relative time] 3.1 {INR} [facility] Prothrombin Time w/INRon INR Coag (PPP) [Relative time] 3.1 {INR} Normal [facility] Comment on above: Order Comment: 411.2 Performed By: #### L 300.3900 ####[facility] [address] [place], [address] Prothrombin timeOrdered By: Karon Corrales on 11-06-2024 PT Coag (PPP) [Time] 33.0 s High 11.7-14.9 [facility] Comment on above: Order Comment: 411.2 Performed By: #### L 300.3900 ####[facility] [address] [place], [address] International normalized rat io (INR) calculationOrdered By: Carlos Cavazos on 11-03-2024 INR Coag (Bld) [Relative time] 3.0 {INR} [facility] Prothrombin Time w/INRon INR Coag (PPP) [Relative time] 3.0 {INR} Normal [facility] Comment on above: Order Comment: 411-2 Performed By: #### L 300.3900 ####[facility] [address] [place], [address] PT Coag (PPP) [Time] 31.4 s High 11.7-14.9 [facility] Comment on above: Order Comment: 411-2 Performed By: #### L 300.3900 ####[facility] [address] [place], [address] Prothrombin timeOrdered By: Carlos Cavazos on 11-03-2024 PT Coag (PPP) [Time] 31.4 s High 11.7-14.9 [facility] International normalized rat io (INR) calculationOrdered By: Karon Corrales on 10-30-2024 INR Coag (Bld) [Relative time] 2.4 {INR} [facility] Prothrombin Time w/INRon INR Coag (PPP) [Relative time] 2.4 {INR} Normal [facility] Comment on above: Performed By: #### L 300.3900 ####[facility] [address] [place], [place], [phone] PT Coag (PPP) [Time] 26.3 s High 11.7-14.9 [facility] Comment on above: Performed By: #### L 300.3900 ####[facility] [address] [place], [place], [phone] Prothrombin timeOrdered By: Karon Corrales on 10-30-2024 PT Coag (PPP) [Time] 26.3 s High 11.7-14.9 [facility] International normalized rat io (INR) calculationOrdered By: Karon Corrales on 10-27-2024 INR Coag (Bld) [Relative time] 2.2 {INR} [facility] Prothrombin Time w/INRon INR Coag (PPP) [Relative time] 2.2 {INR} Normal [facility] Comment on above: Order Comment: 411.2 Performed By: #### L 300.3900 ####[facility] [address] [place], [place], [phone] Prothrombin timeOrdered By: Karon Corrales on 10-27-2024 PT Coag (PPP) [Time] 24.5 s High 11.7-14.9 [facility] Comment on above: Order Comment: 411.2 Performed By: #### L 300.3900 ####[facility] [address] [place], [address] International normalized rat io (INR) calculationOrdered By: Karon Corrales on 10-23-2024 INR Coag (Bld) [Relative time] 2.5 {INR} [facility] Prothrombin Time w/INRon INR Coag (PPP) [Relative time] 2.5 {INR} Normal [facility] Comment on above: Order Comment: 411.2 Performed By: #### L 300.3900 ####[facility] [address], [address] PT Coag (PPP) [Time] 27.9 s High 11.7-14.9 [facility] Comment on above: Order Comment: 411.2 Performed By: #### L 300.3900 ####[facility] [address], [address] Prothrombin timeOrdered By: Karon Corrales on 10-23-2024 PT Coag (PPP) [Time] 27.9 s High 11.7-14.9 [facility] International normalized rat io (INR) calculationOrdered By: Karon Corrales on 10-20-2024 INR Coag (Bld) [Relative time] 3.1 {INR} [facility] Prothrombin Time w/INRon INR Coag (PPP) [Relative time] 3.1 {INR} Normal [facility] Comment on above: Order Comment: 411.2 Performed By: #### L 300.3900 ####[facility] [address], [address] PT Coag (PPP) [Time] 32.8 s High 11.7-14.9 [facility] Comment on above: Order Comment: 411.2 Performed By: #### L 300.3900 ####[facility] [address], [address] Prothrombin timeOrdered By: Karon Corrales on 10-20-2024 PT Coag (PPP) [Time] 32.8 s High 11.7-14.9 [facility] International normalized rat io (INR) calculationOrdered By: Karon Corrales on 10-16-2024 INR Coag (Bld) [Relative time] 2.8 {INR} [facility] Prothrombin Time w/INRon INR Coag (PPP) [Relative time] 2.8 {INR} Normal [facility] Comment on above: Order Comment: 411.2 Performed By: #### L 300.3900 ####[facility] [address] [place], [place], [phone] PT Coag (PPP) [Time] 30.4 s High 11.7-14.9 [facility] Comment on above: Order Comment: 411.2 Performed By: #### L 300.3900 ####[facility] [address] [place], [address] Prothrombin timeOrdered By: Karon Corrales on 10-16-2024 PT Coag (PPP) [Time] 30.4 s High 11.7-14.9 [facility] International normalized rat io (INR) calculationOrdered By: Carlos Cavazos on 10-13-2024 INR Coag (Bld) [Relative time] 1.9 {INR} [facility] Prothrombin Time w/INRon INR Coag (PPP) [Relative time] 1.9 {INR} [facility] Comment on above: Order Comment: 411-2 Performed By: #### L 300.3900 ####[facility] [address] [place], [place], [phone](166 PT Coag (PPP) [Time] 22.4 s High 11.7-14.9 [facility] Comment on above: Order Comment: 411-2 Performed By: #### L 300.3900 ####[facility] [address] [place], [place], [phone] Prothrombin timeOrdered By: Carlos Cavazos on 10-13-2024 PT Coag (PPP) [Time] 22.4 s High 11.7-14.9 [facility] International normalized rat io (INR) calculationOrdered By: Karon Corrales on 10-09-2024 INR Coag (Bld) [Relative time] 3.0 {INR} [facility] Prothrombin Time w/INRon INR Coag (PPP) [Relative time] 3.0 {INR} [facility] Comment on above: Order Comment: 411.2 Performed By: #### L 300.3900 ####[facility] [address] [place], [address] Prothrombin timeOrdered By: Karon Corrales on 10-09-2024 PT Coag (PPP) [Time] 31.8 s High 11.7-14.9 [facility] Comment on above: Order Comment: 411.2 Performed By: #### L 300.3900 ####[facility] [address] [place], [address] International normalized rat io (INR) calculationOrdered By: Carlos Cavazos on 10-06-2024 INR Coag (Bld) [Relative time] 2.7 {INR} [facility] Prothrombin Time w/INRon INR Coag (PPP) [Relative time] 2.7 {INR} [facility] Comment on above: Order Comment: 411-2 Performed By: #### L 300.3900 ####[facility] [address] [place], [address] PT Coag (PPP) [Time] 29.6 s High 11.7-14.9 [facility] Comment on above: Order Comment: 411-2 Performed By: #### L 300.3900 ####[facility] [address] [place], [address] Prothrombin timeOrdered By: Carlos Cavazos on 10-06-2024 PT Coag (PPP) [Time] 29.6 s High 11.7-14.9 [facility] International normalized rat io (INR) calculationOrdered By: Karon Corrales on 10-02-2024 INR Coag (Bld) [Relative time] 2.3 {INR} [facility] Prothrombin Time w/INRon INR Coag (PPP) [Relative time] 2.3 {INR} [facility] Comment on above: Order Comment: 411.2 Performed By: #### L 300.3900 ####[facility] [address] [place], [address] PT Coag (PPP) [Time] 26.0 s High 11.7-14.9 [facility] Comment on above: Order Comment: 411.2 Performed By: #### L 300.3900 ####[facility] [address] [place], [address] Prothrombin timeOrdered By: Karon Corrales on 10-02-2024 PT Coag (PPP) [Time] 26.0 s High 11.7-14.9 [facility] International normalized rat io (INR) calculationOrdered By: Karon Corrales on 09-30-2024 INR Coag (Bld) [Relative time] 3.1 {INR} [facility] Prothrombin Time w/INRon INR Coag (PPP) [Relative time] 3.1 {INR} [facility] Comment on above: Order Comment: 411.2 Performed By: #### L 300.3900 ####[facility] [address] [place], [address] PT Coag (PPP) [Time] 32.6 s High 11.7-14.9 [facility] Comment on above: Order Comment: 411.2 Performed By: #### L 300.3900 ####[facility] [address] [place], [place], [phone] Prothrombin timeOrdered By: Karon Corrales on 09-30-2024 PT Coag (PPP) [Time] 32.6 s High 11.7-14.9 [facility] International normalized rat io (INR) calculationOrdered By: Karon Corrales on 09-25-2024 INR Coag (Bld) [Relative time] 2.4 {INR} [facility] Prothrombin Time w/INRon INR Coag (PPP) [Relative time] 2.4 {INR} [facility] Comment on above: Order Comment: 411.2 Performed By: #### L 300.3900 ####[facility] [address] [place], [address] Prothrombin timeOrdered By: Karon Corrales on 09-25-2024 PT Coag (PPP) [Time] 26.7 s High 11.7-14.9 [facility] Comment on above: Order Comment: 411.2 Performed By: #### L 300.3900 ####[facility] [address] [place], [place], [phone] International normalized rat io (INR) calculationOrdered By: Karon Corrales on 09-22-2024 INR Coag (Bld) [Relative time] 2.5 {INR} [facility] Prothrombin Time w/INRon INR Coag (PPP) [Relative time] 2.5 {INR} [facility] Comment on above: Order Comment: 411.2 Performed By: #### L 300.3900 ####[facility] [address] [place], [place], [address] Prothrombin timeOrdered By: Karon Corrales on 09-22-2024 PT Coag (PPP) [Time] 27.4 s High 11.7-14.9 [facility] Comment on above: Order Comment: 411.2 Performed By: #### L 300.3900 ####[facility] [address] [place], [address] International normalized rat io (INR) calculationOrdered By: Karon Corrales on 09-18-2024 INR Coag (Bld) [Relative time] 2.2 {INR} [facility] Prothrombin Time w/INRon INR Coag (PPP) [Relative time] 2.2 {INR} [facility] Comment on above: Order Comment: 411.2 Performed By: #### L 300.3900 ####[facility] [address] [place], [place], [address] PT Coag (PPP) [Time] 25.1 s High 11.7-14.9 [facility] Comment on above: Order Comment: 411.2 Performed By: #### L 300.3900 ####[facility] [address] [place], [place], [address] Prothrombin timeOrdered By: Karon Corrales on 09-18-2024 PT Coag (PPP) [Time] 25.1 s High 11.7-14.9 [facility] International normalized rat io (INR) calculationOrdered By: Carlos Cavazos on 09-15-2024 INR Coag (Bld) [Relative time] 2.4 {INR} [facility] Prothrombin Time w/INRon INR Coag (PPP) [Relative time] 2.4 {INR} [facility] Comment on above: Order Comment: 411-2 Performed By: #### L 300.3900 ####[facility] [address] [place], [place], [phone] Prothrombin timeOrdered By: Carlos Cavazos on 09-15-2024 PT Coag (PPP) [Time] 26.3 s High 11.7-14.9 [facility] Comment on above: Order Comment: 411-2 Performed By: #### L 300.3900 ####[facility] [address] [place], [place], [address] International normalized rat io (INR) calculationOrdered By: Karon Corrales on 09-11-2024 INR Coag (Bld) [Relative time] 2.0 {INR} [facility] Prothrombin Time w/INRon INR Coag (PPP) [Relative time] 2.0 {INR} [facility] Comment on above: Order Comment: 411.2 Performed By: #### L 300.3900 ####[facility] [address] [place], [place], [phone] PT Coag (PPP) [Time] 22.9 s High 11.7-14.9 [facility] Comment on above: Order Comment: 411.2 Performed By: #### L 300.3900 ####[facility] [address] [place], [place], [phone](931) Prothrombin timeOrdered By: Karon Corrales on 09-11-2024 PT Coag (PPP) [Time] 22.9 s High 11.7-14.9 [facility] International normalized rat io (INR) calculationOrdered By: Karon Corrales on 09-08-2024 INR Coag (Bld) [Relative time] 2.0 {INR} [facility] Prothrombin Time w/INRon INR Coag (PPP) [Relative time] 2.0 {INR} [facility] Comment on above: Order Comment: 411.2 Performed By: #### L 300.3900 ####[facility] [address] [place], [place], [phone] PT Coag (PPP) [Time] 22.8 s High 11.7-14.9 [facility] Comment on above: Order Comment: 411.2 Performed By: #### L 300.3900 ####[facility] [address] [place], [place], [phone](369) Prothrombin timeOrdered By: Karon Corrales on 09-08-2024 PT Coag (PPP) [Time] 22.8 s High 11.7-14.9 [facility] International normalized rat io (INR) calculationOrdered By: Carlos Cavazos on 09-04-2024 INR Coag (Bld) [Relative time] 1.7 {INR} [facility] Prothrombin Time w/INRon INR Coag (PPP) [Relative time] 1.7 {INR} [facility] Comment on above: Order Comment: 411-2 Performed By: #### L 300.3900 ####[facility] [address] [place], [address](093 PT Coag (PPP) [Time] 20.8 s High 11.7-14.9 [facility] Comment on above: Order Comment: 411-2 Performed By: #### L 300.3900 ####[facility] [address] [place], [address](266 Prothrombin timeOrdered By: Carlos Cavazos on 09-04-2024 PT Coag (PPP) [Time] 20.8 s High 11.7-14.9 [facility] International normalized rat io (INR) calculationOrdered By: Carlos Cavazos on 09-01-2024 INR Coag (Bld) [Relative time] 2.9 {INR} [facility] Prothrombin Time w/INRon INR Coag (PPP) [Relative time] 2.9 {INR} [facility] Comment on above: Order Comment: 411-2 Performed By: #### L 300.3900 ####[facility] [address] [place], [address] PT Coag (PPP) [Time] 30.7 s High 11.7-14.9 [facility] Comment on above: Order Comment: 411-2 Performed By: #### L 300.3900 ####[facility] [address], [address](263 Prothrombin timeOrdered By: Carlos Cavazos on 09-01-2024 PT Coag (PPP) [Time] 30.7 s High 11.7-14.[address] [facility] International normalized rat io (INR) calculationOrdered By: Carlos Cavazos on 08-28-2024 INR Coag (Bld) [Relative time] 2.4 {INR} [facility] Prothrombin Time w/INRon INR Coag (PPP) [Relative time] 2.4 {INR} [facility] Comment on above: Order Comment: 411-2 Performed By: #### L 300.3900 ####[facility] [address] [place], [address] Prothrombin timeOrdered By: Carlos Cavazos on 08-28-2024 PT Coag (PPP) [Time] 26.7 s High 11.7-14.9 [facility] Comment on above: Order Comment: 411-2 Performed By: #### L 300.3900 ####[facility] [address] [place], [address] International normalized rat io (INR) calculationOrdered By: Karon Corrales on 08-25-2024 INR Coag (Bld) [Relative time] 1.8 {INR} [facility] Prothrombin Time w/INRon INR Coag (PPP) [Relative time] 1.8 {INR} [facility] Comment on above: Order Comment: 411.2 Performed By: #### L 300.3900 ####[facility] [address] [place], [place], [address] PT Coag (PPP) [Time] 21.6 s High 11.7-14.9 [facility] Comment on above: Order Comment: 411.2 Performed By: #### L 300.3900 ####[facility] [address] [place], [address] Prothrombin timeOrdered By: Karon Corrales on 08-25-2024 PT Coag (PPP) [Time] 21.6 s High 11.7-14.9 [facility] International normalized rat io (INR) calculationOrdered By: Karon Corrales on 08-21-2024 INR Coag (Bld) [Relative time] 1.7 {INR} [facility] PSA, total screeningOrdered By: Karon Corrales on 08-21-2024 Prostate Specific Antigen Screen 0.52 ng/mL 0.02-4.00 [facility] Comment on above: This test was perfor med using the [employer] tPSA method. Measured values of a patient sample can vary depending on the testing procedure used. PSA values determined on patient samples by different testing procedures cannot be used interchangeably. If there is a change in PSA assays while monitoring therapy, sequential testing should be performed to confirm baseline values. PSA,Total - Annual Screenon 08-21-2024 PSA,TOT SCREEN 0.52 ng/mL Normal 0.02-4.00 [facility] Comment on above: Order Comment: 411.2 [...] values. Performed By: #### L 501.9910, L300.3900 ####[facility] [address] [place], [address] Prothrombin Time w/INRon INR Coag (PPP) [Relative time] 1.7 {INR} [facility] Comment on above: Order Comment: 411.2 Performed By: #### L 501.9910, L300.3900 ####[facility] [address] [place], [address] Prothrombin timeOrdered By: Karon Corrales on 08-21-2024 PT Coag (PPP) [Time] 20.1 s High 11.7-14.9 [facility] Comment on above: Order Comment: 411.2 Performed By: #### L 501.9910, L300.3900 ####[facility] [address] [place], [place], [phone] International normalized rat io (INR) calculationOrdered By: Karon Corrales on 08-18-2024 INR Coag (Bld) [Relative time] 3.0 {INR} [facility] Prothrombin Time w/INRon INR Coag (PPP) [Relative time] 3.0 {INR} [facility] Comment on above: Order Comment: 411.2 Performed By: #### L 300.3900 ####[facility] [address] [place], [place], [phone](931) PT Coag (PPP) [Time] 31.4 s High 11.7-14.9 [facility] Comment on above: Order Comment: 411.2 Performed By: #### L 300.3900 ####[facility] [address] [place], [place], [phone](799) Prothrombin timeOrdered By: Karon Corrales on 08-18-2024 PT Coag (PPP) [Time] 31.4 s High 11.7-14.9 [facility] International normalized rat io (INR) calculationOrdered By: Karon Corrales on 08-14-2024 INR Coag (Bld) [Relative time] 2.4 {INR} [facility] Prothrombin Time w/INRon INR Coag (PPP) [Relative time] 2.4 {INR} [facility] Comment on above: Order Comment: 411.2 Performed By: #### L 300.3900 ####[facility] [address] [place], [address] PT Coag (PPP) [Time] 26.6 s High 11.7-14.9 [facility] Comment on above: Order Comment: 411.2 Performed By: #### L 300.3900 ####[facility] [address] [place], [place], [phone](935) Prothrombin timeOrdered By: Karon Corrales on 08-14-2024 PT Coag (PPP) [Time] 26.6 s High 11.7-14.9 [facility] International normalized rat io (INR) calculationOrdered By: Karon Corrales on 08-11-2024 INR Coag (Bld) [Relative time] 3.1 {INR} [facility] Prothrombin Time w/INRon INR Coag (PPP) [Relative time] 3.1 {INR} [facility] Comment on above: Order Comment: 411.2 Performed By: #### L 300.3900 ####[facility] [address] [place], [place], [phone](910) PT Coag (PPP) [Time] 32.4 s High 11.7-14.9 [facility] Comment on above: Order Comment: 411.2 Performed By: #### L 300.3900 ####[facility] [address] [place], [place], [phone]([phone] Prothrombin timeOrdered By: Karon Corrales on 08-11-2024 PT Coag (PPP) [Time] 32.4 s High 11.7-14.9 [facility] International normalized rat io (INR) calculationOrdered By: Carlos Cavazos on 08-07-2024 INR Coag (Bld) [Relative time] 2.8 {INR} [facility] Prothrombin Time w/INRon INR Coag (PPP) [Relative time] 2.8 {INR} [facility] Comment on above: Order Comment: 411-2 Performed By: #### L 300.3900 ####[facility] [address] [place], [place], [phone](183 PT Coag (PPP) [Time] 30.3 s High 11.7-14.9 [facility] Comment on above: Order Comment: 411-2 Performed By: #### L 300.3900 ####[facility] [address] [place], [address] Prothrombin timeOrdered By: Carlos Cavazos on 08-07-2024 PT Coag (PPP) [Time] 30.3 s High 11.7-14.9 [facility] International normalized rat io (INR) calculationOrdered By: Carlos Cavazos on 08-04-2024 INR Coag (Bld) [Relative time] 1.9 {INR} [facility] Prothrombin Time w/INRon INR Coag (PPP) [Relative time] 1.9 {INR} [facility] Comment on above: Order Comment: 411-2 Performed By: #### L 300.3900 ####[facility] [address] [place], [place], [address] PT Coag (PPP) [Time] 22.1 s High 11.7-14.9 [facility] Comment on above: Order Comment: 411-2 Performed By: #### L 300.3900 ####[facility] [address] [place], [place], [phone] Prothrombin timeOrdered By: Carlos Cavazos on 08-04-2024 PT Coag (PPP) [Time] 22.1 s High 11.7-14.9 [facility] International normalized rat io (INR) calculationOrdered By: Karon Corrales on 07-31-2024 INR Coag (Bld) [Relative time] 3.2 {INR} [facility] Prothrombin Time w/INRon INR Coag (PPP) [Relative time] 3.2 {INR} [facility] Comment on above: Order Comment: 411.2 Performed By: #### L 300.3900 ####[facility] [address] [place], [place], [phone] PT Coag (PPP) [Time] 33.5 s High 11.7-14.9 [facility] Comment on above: Order Comment: 411.2 Performed By: #### L 300.3900 ####[facility] [address] [place], [place], [address] Prothrombin timeOrdered By: Karon Corrales on 07-31-2024 PT Coag (PPP) [Time] 33.5 s High 11.7-14.9 [facility] International normalized rat io (INR) calculationOrdered By: Karon Corrales on 07-28-2024 INR Coag (Bld) [Relative time] 2.7 {INR} [facility] Prothrombin Time w/INRon INR Coag (PPP) [Relative time] 2.7 {INR} [facility] Comment on above: Order Comment: 411.2 Performed By: #### L 300.3900 ####[facility] [address] [place], [place], [address] PT Coag (PPP) [Time] 29.6 s High 11.7-14.9 [facility] Comment on above: Order Comment: 411.2 Performed By: #### L 300.3900 ####[facility] [address] [place], [place], [address] Prothrombin timeOrdered By: Karon Corrales on 07-28-2024 PT Coag (PPP) [Time] 29.6 s High 11.7-14.9 [facility] International normalized rat io (INR) calculationOrdered By: Carlos Cavazos on 07-25-2024 INR Coag (Bld) [Relative time] 3.0 {INR} [facility] Prothrombin Time w/INRon INR Coag (PPP) [Relative time] 3.0 {INR} [facility] Comment on above: Order Comment: 411-2 Performed By: #### L 300.3900 ####[facility] [address] [place], [address] Prothrombin timeOrdered By: Carlos Cavazos on 07-25-2024 PT Coag (PPP) [Time] 32.1 s High 11.7-14.9 [facility] Comment on above: Order Comment: 411-2 Performed By: #### L 300.3900 ####[facility] [address] [place], [place], [address] International normalized rat io (INR) calculationOrdered By: Karon Corrales on 07-24-2024 INR Coag (Bld) [Relative time] 3.4 {INR} [facility] Prothrombin Time w/INRon INR Coag (PPP) [Relative time] 3.4 {INR} [facility] Comment on above: Order Comment: 411.2 Performed By: #### L 300.3900 ####[facility] [address] [place], [place], [address] Prothrombin timeOrdered By: Karon Corrales on 07-24-2024 PT Coag (PPP) [Time] 35.4 s High 11.7-14.9 [facility] Comment on above: Order Comment: 411.2 Performed By: #### L 300.3900 ####[facility] [address] [place], [place], [address] International normalized rat io (INR) calculationOrdered By: Karon Corrales on 07-21-2024 INR Coag (Bld) [Relative time] 1.6 {INR} [facility] Prothrombin Time w/INRon INR Coag (PPP) [Relative time] 1.6 {INR} [facility] Comment on above: Order Comment: 411.2 Performed By: #### L 300.3900 ####[facility] [address] [place], [place], [address] PT Coag (PPP) [Time] 19.6 s High 11.7-14.9 [facility] Comment on above: Order Comment: 411.2 Performed By: #### L 300.3900 ####[facility] [address] [place], [place], [phone]([phone] Prothrombin timeOrdered By: Karon Corrales on 07-21-2024 PT Coag (PPP) [Time] 19.6 s High 11.7-14.9 [facility] International normalized rat io (INR) calculationOrdered By: Karon Corrales on 07-17-2024 INR Coag (Bld) [Relative time] 2.9 {INR} [facility] Prothrombin Time w/INRon INR Coag (PPP) [Relative time] 2.9 {INR} [facility] Comment on above: Order Comment: 411.2 Performed By: #### L 300.3900 ####[facility] [address] [place], [place], [phone](398 PT Coag (PPP) [Time] 31.1 s High 11.7-14.9 [facility] Comment on above: Order Comment: 411.2 Performed By: #### L 300.3900 ####[facility] [address] [place], [address] Prothrombin timeOrdered By: Karon Corrales on 07-17-2024 PT Coag (PPP) [Time] 31.1 s High 11.7-14.9 [facility] International normalized rat io (INR) calculationOrdered By: Carlos Cavazos on 07-14-2024 INR Coag (Bld) [Relative time] 2.5 {INR} [facility] Prothrombin Time w/INRon INR Coag (PPP) [Relative time] 2.5 {INR} [facility] Comment on above: Order Comment: 411-2 Performed By: #### L 300.3900 ####[facility] [address] [place], [address] PT Coag (PPP) [Time] 27.5 s High 11.7-14.9 [facility] Comment on above: Order Comment: 411-2 Performed By: #### L 300.3900 ####[facility] [address] [place], [address] Prothrombin timeOrdered By: Carlos Cavazos on 07-14-2024 PT Coag (PPP) [Time] 27.5 s High 11.7-14.9 [facility] International normalized rat io (INR) calculationOrdered By: Carlos Cavazos on 07-11-2024 INR Coag (Bld) [Relative time] 2.5 {INR} [facility] Prothrombin Time w/INRon INR Coag (PPP) [Relative time] 2.5 {INR} [facility] Comment on above: Performed By: #### L 300.3900 ####[facility] [address] [place], [address] PT Coag (PPP) [Time] 27.7 s High 11.7-14.9 [facility] Comment on above: Performed By: #### L 300.3900 ####[facility] [address] [place], [place], [address] Prothrombin timeOrdered By: Carlos Cavazos on 07-11-2024 PT Coag (PPP) [Time] 27.7 s High 11.7-14.9 [facility] Prothrombin Time w/INRon INR [facility] Comment on above: Order Comment: 411.2 Result Comment: QNS TUBE NOT FILLED Performed By: #### L 300.3900 ####[facility] [address] [place], [place], [phone] PROTIME Normal 11.7-14.9 [facility] Comment on above: Order Comment: 411.2 Result Comment: QNS TUBE NOT FILLED Performed By: #### L 300.3900 ####[facility] [address] [place], [place], [phone](810) International normalized rat io (INR) calculationOrdered By: Kvng Crisostomo on 07-07-2024 INR Coag (Bld) [Relative time] 2.5 {INR} [facility] Prothrombin Time w/INRon INR Coag (PPP) [Relative time] 2.5 {INR} [facility] Comment on above: Order Comment: 411.2 Performed By: #### L 300.3900 ####[facility] [address] [place], [address] PT Coag (PPP) [Time] 27.2 s High 11.7-14.9 [facility] Comment on above: Order Comment: 411.2 Performed By: #### L 300.3900 ####[facility] [address] [place], [address] Prothrombin timeOrdered By: Kvng Crisostomo on 07-07-2024 PT Coag (PPP) [Time] 27.2 s High 11.7-14.9 [facility] International normalized rat io (INR) calculationOrdered By: Kvng Crisostomo on 07-03-2024 INR Coag (Bld) [Relative time] 2.5 {INR} [facility] Prothrombin Time w/INRon INR Coag (PPP) [Relative time] 2.5 {INR} [facility] Comment on above: Order Comment: 411.2 Performed By: #### L 300.3900 ####[facility] [address] [place], [address] PT Coag (PPP) [Time] 27.2 s High 11.7-14.9 [facility] Comment on above: Order Comment: 411.2 Performed By: #### L 300.3900 ####[facility] [address] [place], [address] Prothrombin timeOrdered By: Kvng Crisostomo on 07-03-2024 PT Coag (PPP) [Time] 27.2 s High 11.7-14.9 [facility] International normalized rat io (INR) calculationOrdered By: Kvng Crisostomo on 06-30-2024 INR Coag (Bld) [Relative time] 2.4 {INR} [facility] Prothrombin Time w/INRon INR Coag (PPP) [Relative time] 2.4 {INR} [facility] Comment on above: Order Comment: 411.2 Performed By: #### L 300.3900 ####[facility] [address] [place], [address] PT Coag (PPP) [Time] 26.8 s High 11.7-14.9 [facility] Comment on above: Order Comment: 411.2 Performed By: #### L 300.3900 ####[facility] [address] [place], [address] Prothrombin timeOrdered By: Kvng Crisostomo on 06-30-2024 PT Coag (PPP) [Time] 26.8 s High 11.7-14.9 [facility] International normalized rat io (INR) calculationOrdered By: Kvng Crisostomo on 06-26-2024 INR Coag (Bld) [Relative time] 2.5 {INR} [facility] Prothrombin Time w/INRon INR Coag (PPP) [Relative time] 2.5 {INR} [facility] Comment on above: Order Comment: 411.2 Performed By: #### L 300.3900 ####[facility] [address] [place], [address] PT Coag (PPP) [Time] 27.5 s High 11.7-14.9 [facility] Comment on above: Order Comment: 411.2 Performed By: #### L 300.3900 ####[facility] [address] [place], [place], [phone](998) Prothrombin timeOrdered By: Kvng Crisostomo on 06-26-2024 PT Coag (PPP) [Time] 27.5 s High 11.7-14.9 [facility] normalized rat io (INR) calculationOrdered By: Carlos Cavazos on 06-23-2024 INR Coag (Bld) [Relative time] 2.8 {INR} [facility] Prothrombin Time w/INRon INR Coag (PPP) [Relative time] 2.8 {INR} Normal [facility] Comment on above: Order Comment: 411-2 Performed By: #### L 300.3900 ####[facility] [address] [place], [address] PT Coag (PPP) [Time] 29.7 s High 11.7-14.9 [facility] Comment on above: Order Comment: 411-2 Performed By: #### L 300.3900 ####[facility] [address] [place], [address] Prothrombin timeOrdered By: Carlos Cavazos on 06-23-2024 PT Coag (PPP) [Time] 29.7 s High 11.7-14.9 [facility] normalized rat io (INR) calculationOrdered By: Kvng Crisostomo on 06-19-2024 INR Coag (Bld) [Relative time] 2.6 {INR} [facility] Prothrombin Time w/INRon INR Coag (PPP) [Relative time] 2.6 {INR} Normal [facility] Comment on above: Order Comment: 411.2 Performed By: #### L 300.3900 ####[facility] [address] [place], [address] PT Coag (PPP) [Time] 28.6 s High 11.7-14.9 [facility] Comment on above: Order Comment: 411.2 Performed By: #### L 300.3900 ####[facility] [address] [place], [address] Prothrombin timeOrdered By: Kvng Crisostomo on 06-19-2024 PT Coag (PPP) [Time] 28.6 s High 11.7-14.9 [facility] normalized rat io (INR) calculationOrdered By: Kvng Crisostomo on 06-16-2024 INR Coag (Bld) [Relative time] 2.5 {INR} [facility] Prothrombin Time w/INRon INR Coag (PPP) [Relative time] 2.5 {INR} Normal [facility] Comment on above: Order Comment: 411.2 Performed By: #### L 300.3900 ####[facility] [address] [place], [address] PT Coag (PPP) [Time] 27.3 s High 11.7-14.9 [facility] Comment on above: Order Comment: 411.2 Performed By: #### L 300.3900 ####[facility] [address] [place], [address] Prothrombin timeOrdered By: Kvng Crisostomo on 06-16-2024 PT Coag (PPP) [Time] 27.3 s High 11.7-14.9 [facility] normalized rat io (INR) calculationOrdered By: Kvng Crisostomo on 06-12-2024 INR Coag (Bld) [Relative time] 2.1 {INR} [facility] Prothrombin Time w/INRon INR Coag (PPP) [Relative time] 2.1 {INR} Normal [facility] Comment on above: Order Comment: 411.2 Performed By: #### L 300.3900 ####[facility] [address] [place], [address] PT Coag (PPP) [Time] 24.0 s High 11.7-14.9 [facility] Comment on above: Order Comment: 411.2 Performed By: #### L 300.3900 ####[facility] [address] [place], [address] Prothrombin timeOrdered By: Kvng Crisostomo on 06-12-2024 PT Coag (PPP) [Time] 24.0 s High 11.7-14.9 [facility] normalized rat io (INR) calculationOrdered By: Carlos Cavazos on 06-09-2024 INR Coag (Bld) [Relative time] 1.5 {INR} [facility] Prothrombin Time w/INRon INR Coag (PPP) [Relative time] 1.5 {INR} Normal [facility] Comment on above: Order Comment: 411-2 Performed By: #### L 300.3900 ####[facility] [address], [address] PT Coag (PPP) [Time] 18.0 s High 11.7-14.9 [facility] Comment on above: Order Comment: 411-2 Performed By: #### L 300.3900 ####[facility] [address], [address] Prothrombin timeOrdered By: Carlos Cavazos on 06-09-2024 PT Coag (PPP) [Time] 18.0 s High 11.7-14.9 [facility] normalized rat io (INR) calculationOrdered By: Kvng Crisostomo on 06-05-2024 INR Coag (Bld) [Relative time] 2.8 {INR} [facility] Prothrombin Time w/INRon INR Coag (PPP) [Relative time] 2.8 {INR} Normal [facility] Comment on above: Order Comment: 411.2 Performed By: #### L 300.3900 ####[facility] [address], [address] PT Coag (PPP) [Time] 30.3 s High 11.7-14.9 [facility] Comment on above: Order Comment: 411.2 Performed By: #### L 300.3900 ####[facility] [address] [place], [address] Prothrombin timeOrdered By: Kvng Crisostomo on 06-05-2024 PT Coag (PPP) [Time] 30.3 s High 11.7-14.9 [facility] normalized rat io (INR) calculationOrdered By: Kvng Crisostomo on 06-02-2024 INR Coag (Bld) [Relative time] 2.6 {INR} [facility] Prothrombin Time w/INRon INR Coag (PPP) [Relative time] 2.6 {INR} Normal [facility] Comment on above: Order Comment: 411.2 Performed By: #### L 300.3900 ####[facility] [address] [place], [address] PT Coag (PPP) [Time] 28.6 s High 11.7-14.9 [facility] Comment on above: Order Comment: 411.2 Performed By: #### L 300.3900 ####[facility] [address] [facility] [address] Prothrombin timeOrdered By: Kvng Crisostomo on 06-02-2024 PT Coag (PPP) [Time] 28.6 s High 11.7-14.9 [facility] normalized rat io (INR) calculationOrdered By: Kvng Crisostomo on 05-29-2024 INR Coag (Bld) [Relative time] 2.5 {INR} [facility] Prothrombin Time w/INRon INR Coag (PPP) [Relative time] 2.5 {INR} Normal [facility] Comment on above: Order Comment: 411.2 Performed By: #### L 300.3900 ####[facility] [address] [place], [address] PT Coag (PPP) [Time] 27.7 s High 11.7-14.9 [facility] Comment on above: Order Comment: 411.2 Performed By: #### L 300.3900 ####[facility] [address] [place], [address] Prothrombin timeOrdered By: Kvng Crisostomo on 05-29-2024 PT Coag (PPP) [Time] 27.7 s High 11.7-14.9 [facility] normalized rat io (INR) calculationOrdered By: Carlos Cavazos on 05-26-2024 INR Coag (Bld) [Relative time] 2.2 {INR} [facility] Prothrombin Time w/INRon INR Coag (PPP) [Relative time] 2.2 {INR} Normal [facility] Comment on above: Order Comment: 411-2 Performed By: #### L 300.3900 ####[facility] [address] [place], [place], [phone] PT Coag (PPP) [Time] 24.5 s High 11.7-14.9 [facility] Comment on above: Order Comment: 411-2 Performed By: #### L 300.3900 ####[facility] [address] [place], [address] Prothrombin timeOrdered By: Carlos Cavazos on 05-26-2024 PT Coag (PPP) [Time] 24.5 s High 11.7-14.9 [facility] normalized rat io (INR) calculationOrdered By: Kvng Crisostomo on 05-22-2024 INR Coag (Bld) [Relative time] 2.8 {INR} [facility] Prothrombin Time w/INRon INR Coag (PPP) [Relative time] 2.8 {INR} Normal [facility] Comment on above: Order Comment: 411.2 Performed By: #### L 300.3900 ####[facility] [address] [place], [place], [phone] PT Coag (PPP) [Time] 30.3 s High 11.7-14.9 [facility] Comment on above: Order Comment: 411.2 Performed By: #### L 300.3900 ####[facility] [address] [place], [address] Prothrombin timeOrdered By: Kvng Crisostomo on 05-22-2024 PT Coag (PPP) [Time] 30.3 s High 11.7-14.9 [facility] normalized rat io (INR) calculationOrdered By: Kvng Crisostomo on 05-20-2024 INR Coag (Bld) [Relative time] 4.0 {INR} High [facility] Comment on above: CRITICAL VALUE CASEY D TO MNAOTFJXU41/14/25 08 Diana Srinivasan.RESULTS READ BACK BY SAME. Prothrombin Time w/INRon INR Coag (PPP) [Relative time] 4.0 {INR} Invalid Interpretation Code [facility] Comment on above: Order Comment: 411.2 Result Comment: CRIT ICAL VALUE CALLED TO FOHLTRDPY83/14/25 [facility] Diana Mattson.RESULTS READ BACK BY SAME. Performed By: #### L 300.3900 ####[facility] [address] [place], [place], [phone](220) PT Coag (PPP) [Time] 39.9 s High 11.7-14.9 [facility] Comment on above: Order Comment: 411.2 Performed By: #### L 300.3900 ####[facility] [address] [place], [place], [phone](215) Prothrombin timeOrdered By: Kvng Crisostomo on 05-20-2024 PT Coag (PPP) [Time] 39.9 s High 11.7-14.9 [facility] normalized rat io (INR) calculationOrdered By: Kvng Crisostomo on 05-19-2024 INR Coag (Bld) [Relative time] 3.4 {INR} [facility] Prothrombin Time w/INRon INR Coag (PPP) [Relative time] 3.4 {INR} Normal [facility] Comment on above: Order Comment: 411.2 Performed By: #### L 300.3900 ####[facility] [address] [place], [place], [phone](623) PT Coag (PPP) [Time] 35.4 s High 11.7-14.9 [facility] Comment on above: Order Comment: 411.2 Performed By: #### L 300.3900 ####[facility] [address] [place], [place], [phone](592) Prothrombin timeOrdered By: Kvng Crisostomo on 05-19-2024 PT Coag (PPP) [Time] 35.4 s High 11.7-14.9 [facility] normalized rat io (INR) calculationOrdered By: Kvng Crisostomo on 05-15-2024 INR Coag (Bld) [Relative time] 2.6 {INR} [facility] Prothrombin Time w/INRon INR Coag (PPP) [Relative time] 2.6 {INR} Normal [facility] Comment on above: Order Comment: 411.2 Performed By: #### L 300.3900 ####[facility] [address] [place], [place], [phone] PT Coag (PPP) [Time] 28.7 s High 11.7-14.9 [facility] Comment on above: Order Comment: 411.2 Performed By: #### L 300.3900 ####[facility] [address] [place], [address] Prothrombin timeOrdered By: Kvng Crisostomo on 05-15-2024 PT Coag (PPP) [Time] 28.7 s High 11.7-14.9 [facility] normalized rat io (INR) calculationOrdered By: Carlos Cavazos on 05-12-2024 INR Coag (Bld) [Relative time] 2.1 {INR} [facility] Prothrombin Time w/INRon INR Coag (PPP) [Relative time] 2.1 {INR} Normal [facility] Comment on above: Order Comment: 411-2 Performed By: #### L 300.3900 ####[facility] [address] [place], [address] PT Coag (PPP) [Time] 24.1 s High 11.7-14.9 [facility] Comment on above: Order Comment: 411-2 Performed By: #### L 300.3900 ####[facility] [address] [place], [place], [phone] Prothrombin timeOrdered By: Carlos Cavazos on 05-12-2024 PT Coag (PPP) [Time] 24.1 s High 11.7-14.9 [facility] normalized rat io (INR) calculationOrdered By: Kvng Crisostomo on 05-09-2024 INR Coag (Bld) [Relative time] 3.4 {INR} [facility] Prothrombin Time w/INRon INR Coag (PPP) [Relative time] 3.4 {INR} Normal [facility] Comment on above: Order Comment: 411.2 Performed By: #### L 300.3900 ####[facility] [address] [place], [place], [phone] PT Coag (PPP) [Time] 35.4 s High 11.7-14.9 [facility] Comment on above: Order Comment: 411.2 Performed By: #### L 300.3900 ####[facility] [address] [place], [place], [phone] Prothrombin timeOrdered By: Kvng Crisostomo on 05-09-2024 PT Coag (PPP) [Time] 35.4 s High 11.7-14.9 [facility] normalized rat io (INR) calculationOrdered By: Kvng Crisostomo on 05-08-2024 INR Coag (Bld) [Relative time] 4.1 {INR} High [facility] Comment on above: CRITICAL VALUE CASEY D TO [facility]05/08/24 0950 Karen Jamison.RESULTS READ BACK BY SAME. Prothrombin Time w/INRon INR Coag (PPP) [Relative time] 4.1 {INR} Invalid Interpretation Code [facility] Comment on above: Order Comment: 411.2 Result Comment: CRIT ICAL VALUE CALLED TO WIL[facility] HAIRSTONNJ05/08/24 0950 Karen Jamison.RESULTS READ BACK BY SAME. Performed By: #### L 300.3900 ####[facility] [address] [place], [address] PT Coag (PPP) [Time] 40.8 s High 11.7-14.9 [facility] Comment on above: Order Comment: 411.2 Performed By: #### L 300.3900 ####[facility] [address] [place], [address] Prothrombin timeOrdered By: Babbaljeet Andressa on 05-08-2024 PT Coag (PPP) [Time] 40.8 s High 11.7-14.9 [facility] normalized rat io (INR) calculationOrdered By: Babbaljeet Crisostomo on 05-05-2024 INR Coag (Bld) [Relative time] 3.2 {INR} [facility] Prothrombin Time w/INRon INR Coag (PPP) [Relative time] 3.2 {INR} Normal [facility] Comment on above: Order Comment: 411.2 Performed By: #### L 300.3900 ####[facility] [address] [place], [address] PT Coag (PPP) [Time] 32.5 s High 11.7-14.9 [facility] Comment on above: Order Comment: 411.2 Performed By: #### L 300.3900 ####[facility] [address] [place], [address] Prothrombin timeOrdered By: Babbaljeet Crisostomo on 05-05-2024 PT Coag (PPP) [Time] 32.5 s High 11.7-14.9 [facility] normalized rat io (INR) calculationOrdered By: Babbaljeet Crisostomo on 05-01-2024 INR Coag (Bld) [Relative time] 3.1 {INR} [facility] Prothrombin Time w/INRon INR Coag (PPP) [Relative time] 3.1 {INR} Normal [facility] Comment on above: Order Comment: 411.2 Performed By: #### L 300.3900 ####[facility] [address] [place], [address] PT Coag (PPP) [Time] 31.9 s High 11.7-14.9 [facility] Comment on above: Order Comment: 411.2 Performed By: #### L 300.3900 ####[facility] [address] [place], [address] Prothrombin timeOrdered By: Kvng Crisostomo on 05-01-2024 PT Coag (PPP) [Time] 31.9 s High 11.7-14.9 [facility] normalized rat io (INR) calculationOrdered By: Carlos Cavazos on 04-28-2024 INR Coag (Bld) [Relative time] 2.6 {INR} [facility] Prothrombin Time w/INRon INR Coag (PPP) [Relative time] 2.6 {INR} Normal [facility] Comment on above: Order Comment: 411-2 Performed By: #### L 300.3900 ####[facility] [address] [place], [address] PT Coag (PPP) [Time] 27.3 s High 11.7-14.9 [facility] Comment on above: Order Comment: 411-2 Performed By: #### L 300.3900 ####[facility] [address] [place], [address] Prothrombin timeOrdered By: Carlos Cavazos on 04-28-2024 PT Coag (PPP) [Time] 27.3 s High 11.7-14.9 [facility] normalized rat io (INR) calculationOrdered By: Kvng Crisostomo on 04-24-2024 INR Coag (Bld) [Relative time] 3.6 {INR} [facility] Prothrombin Time w/INRon INR Coag (PPP) [Relative time] 3.6 {INR} Normal [facility] Comment on above: Order Comment: 411.2 Performed By: #### L 300.3900 ####[facility] [address] [place], [address] PT Coag (PPP) [Time] 35.6 s High 11.7-14.9 [facility] Comment on above: Order Comment: 411.2 Performed By: #### L 300.3900 ####[facility] [address] [place], [address] Prothrombin timeOrdered By: Kvng Crisostomo on 04-24-2024 PT Coag (PPP) [Time] 35.6 s High 11.7-14.9 [facility] normalized rat io (INR) calculationOrdered By: Carlos Cavazos on 04-21-2024 INR Coag (Bld) [Relative time] 2.8 {INR} [facility] Prothrombin Time w/INRon INR Coag (PPP) [Relative time] 2.8 {INR} Normal [facility] Comment on above: Order Comment: 411-2 Performed By: #### L 300.3900 ####[facility] [address] [place], [address] PT Coag (PPP) [Time] 29.4 s High 11.7-14.9 [facility] Comment on above: Order Comment: 411-2 Performed By: #### L 300.3900 ####[facility] [address] [place], [address] Prothrombin timeOrdered By: Carlos Cavazos on 04-21-2024 PT Coag (PPP) [Time] 29.4 s High 11.7-14.9 [facility] normalized rat io (INR) calculationOrdered By: Kvng Crisostomo on 04-17-2024 INR Coag (Bld) [Relative time] 3.1 {INR} [facility] Prothrombin Time w/INRon INR Coag (PPP) [Relative time] 3.1 {INR} Normal [facility] Comment on above: Order Comment: 411.2 Performed By: #### L 300.3900 ####[facility] [address] [place], [place], [phone](443) Prothrombin timeOrdered By: Kvng Crisostomo on 04-17-2024 PT Coag (PPP) [Time] 31.3 s High 11.7-14.9 [facility] Comment on above: Order Comment: 411.2 Performed By: #### L 300.3900 ####[facility] [address] [place], [place], [phone](833) International normalized rat io (INR) calculationOrdered By: Kvng Crisostomo on 04-14-2024 INR Coag (Bld) [Relative time] 3.3 {INR} [facility] Prothrombin Time w/INRon INR Coag (PPP) [Relative time] 3.3 {INR} Normal [facility] Comment on above: Order Comment: 411.2 Performed By: #### L 300.3900 ####[facility] [address] [place], [place], [phone](010) PT Coag (PPP) [Time] 33.2 s High 11.7-14.9 [facility] Comment on above: Order Comment: 411.2 Performed By: #### L 300.3900 ####[facility] [address] [place], [place], [phone](938) Prothrombin timeOrdered By: Kvng Crisostomo on 04-14-2024 PT Coag (PPP) [Time] 33.2 s High 11.7-14.9 [facility] normalized rat io (INR) calculationOrdered By: Kvng Crisostomo on 04-10-2024 INR Coag (Bld) [Relative time] 2.8 {INR} [facility] Prothrombin Time w/INRon INR Coag (PPP) [Relative time] 2.8 {INR} Normal [facility] Comment on above: Order Comment: 411.2 Performed By: #### L 300.3900 ####[facility] [address] [place], [address] PT Coag (PPP) [Time] 29.2 s High 11.7-14.9 [facility] Comment on above: Order Comment: 411.2 Performed By: #### L 300.3900 ####[facility] [address] [place], [address] Prothrombin timeOrdered By: Kvng Crisostomo on 04-10-2024 PT Coag (PPP) [Time] 29.2 s High 11.7-14.9 [facility] normalized rat io (INR) calculationOrdered By: Carlos Cavazos on 04-07-2024 INR Coag (Bld) [Relative time] 2.7 {INR} [facility] Prothrombin Time w/INRon INR Coag (PPP) [Relative time] 2.7 {INR} Normal [facility] Comment on above: Order Comment: 411-2 Performed By: #### L 300.3900 ####[facility] [address] [place], [address] PT Coag (PPP) [Time] 28.1 s High 11.7-14.9 [facility] Comment on above: Order Comment: 411-2 Performed By: #### L 300.3900 ####[facility] [address] [place], [address] Prothrombin timeOrdered By: Carlos Cavazos on 04-07-2024 PT Coag (PPP) [Time] 28.1 s High 11.7-14.9 [facility] normalized rat io (INR) calculationOrdered By: Kvng Crisostomo on 04-04-2024 INR Coag (Bld) [Relative time] 2.8 {INR} [facility] Prothrombin Time w/INRon INR Coag (PPP) [Relative time] 2.8 {INR} Normal [facility] Comment on above: Order Comment: 411.2 Performed By: #### L 300.3900 ####[facility] [address] [place], [address] PT Coag (PPP) [Time] 28.9 s High 11.7-14.9 [facility] Comment on above: Order Comment: 411.2 Performed By: #### L 300.3900 ####[facility] [address] [place], [address] Prothrombin timeOrdered By: Kvng Crisostomo on 04-04-2024 PT Coag (PPP) [Time] 28.9 s High 11.7-14.9 [facility] normalized rat io (INR) calculationOrdered By: Carlos Cavazos on 03-31-2024 INR Coag (Bld) [Relative time] 2.6 {INR} [facility] Prothrombin Time w/INRon INR Coag (PPP) [Relative time] 2.6 {INR} Normal [facility] Comment on above: Order Comment: 411-2 Performed By: #### L 300.3900 ####[facility] [address] [place], [address] PT Coag (PPP) [Time] 27.3 s High 11.7-14.9 [facility] Comment on above: Order Comment: 411-2 Performed By: #### L 300.3900 ####[facility] [address] [place], [address] Prothrombin timeOrdered By: Carlos Cavazos on 03-31-2024 PT Coag (PPP) [Time] 27.3 s High 11.7-14.9 [facility] normalized rat io (INR) calculationOrdered By: [employer] on 03-27-2024 INR Coag (Bld) [Relative time] 2.2 {INR} [facility] Prothrombin Time w/INRon INR Coag (PPP) [Relative time] 2.2 {INR} Normal [facility] Comment on above: Order Comment: 411.2 Performed By: #### L 300.3900 ####[facility] [address] [place], [address] PT Coag (PPP) [Time] 24.3 s High 11.7-14.9 [facility] Comment on above: Order Comment: 411.2 Performed By: #### L 300.3900 ####[facility] [address] [place], [address] Prothrombin timeOrdered By: [employer] on 03-27-2024 PT Coag (PPP) [Time] 24.3 s High 11.7-14.9 [facility] normalized rat io (INR) calculationOrdered By: Kvng Crisostomo on 03-24-2024 INR Coag (Bld) [Relative time] 1.8 {INR} [facility] Prothrombin Time w/INRon INR Coag (PPP) [Relative time] 1.8 {INR} Normal [facility] Comment on above: Order Comment: 411.2 Performed By: #### L 300.3900 ####[facility] [address] [place], [address] PT Coag (PPP) [Time] 20.7 s High 11.7-14.9 [facility] Comment on above: Order Comment: 411.2 Performed By: #### L 300.3900 ####[facility] [address] [place], [address] Prothrombin timeOrdered By: Kvng Crisostomo on 03-24-2024 PT Coag (PPP) [Time] 20.7 s High 11.7-14.9 [facility] normalized rat io (INR) calculationOrdered By: [employer] on 03-20-2024 INR Coag (Bld) [Relative time] 1.8 {INR} [facility] Prothrombin Time w/INRon INR Coag (PPP) [Relative time] 1.8 {INR} Normal [facility] Comment on above: Order Comment: 411.2 Performed By: #### L 300.3900 ####[facility] [address] [place], [address] PT Coag (PPP) [Time] 20.9 s High 11.7-14.9 [facility] Comment on above: Order Comment: 411.2 Performed By: #### L 300.3900 ####[facility] [address] [place], [address] Prothrombin timeOrdered By: [employer] on 03-20-2024 PT Coag (PPP) [Time] 20.9 s High 11.7-14.9 [facility] normalized rat io (INR) calculationOrdered By: Kvng Crisostomo on 03-19-2024 INR Coag (Bld) [Relative time] 2.4 {INR} [facility] Prothrombin Time w/INRon INR Coag (PPP) [Relative time] 2.4 {INR} Normal [facility] Comment on above: Order Comment: 411.2 Performed By: #### L 300.3900 ####[facility] [address] [place], [address] PT Coag (PPP) [Time] 26.4 s High 11.7-14.9 [facility] Comment on above: Order Comment: 411.2 Performed By: #### L 300.3900 ####[facility] [address] [place], [address] Prothrombin timeOrdered By: Kvng Crisostomo on 03-19-2024 PT Coag (PPP) [Time] 26.4 s High 11.7-14.9 [facility] normalized rat io (INR) calculationOrdered By: [employer] on 03-18-2024 INR Coag (Bld) [Relative time] 3.2 {INR} [facility] Prothrombin timeOrdered By: [employer] on 03-18-2024 PT Coag (PPP) [Time] 32.3 s High 11.7-14.9 [facility] normalized rat io (INR) calculationOrdered By: [employer] on 03-17-2024 INR Coag (Bld) [Relative time] 3.6 {INR} [facility] Prothrombin timeOrdered By: [employer] on 03-17-2024 PT Coag (PPP) [Time] 35.7 s High 11.7-14.9 [facility] normalized rat io (INR) calculationOrdered By: Carlos Cavazos on 03-14-2024 INR Coag (Bld) [Relative time] 3.5 {INR} [facility] Prothrombin timeOrdered By: Carlos Cavazos on 03-14-2024 PT Coag (PPP) [Time] 35.0 s High 11.7-14.9 [facility] normalized rat io (INR) calculationOrdered By: [employer] on 03-13-2024 INR Coag (Bld) [Relative time] 3.2 {INR} [facility] Prothrombin timeOrdered By: [employer] on 03-13-2024 PT Coag (PPP) [Time] 32.2 s High 11.7-14.9 [facility] Office Visiton 09-13-2023 Follow-up visit [id number] GurpreetTamie 1950 M [facility]asha Provider Department Center 09/13/2023 [id number]-VJSLJYREBECCA [facility] None Family History Problem Relation Age of Onset Heart disease Father Cancer Mother Family Status - Relation Status Age at Father Mother Level of Service:99637 [place] OFFICE/OUTPATIENT ESTABLISHED MOD MDM 30 MIN Reason for Visit and Comments: left flank pain [Other] - 8/10 pain when touched Normal [facility] Progress Noteon 09-13-2023 Progress Note Walt [...] Hydrocephalus, adult (CMS/HCC) (HCC) Kidney stone Neuropathy NURSING COORDINATOR (ventriculoperitoneal) shunt status Past Surgical History: Procedure [...] 03/02/2022 CR (more content not included)... Normal [facility] CT ABDOMEN PELVIS WO IV CONT Kelly 09-07-2023 CT ABDOMEN PELVIS WO IV CONTRAST Patient Name: ANDREW SIFUENTES : 1950 [id number] Exam Date/Time: 09/06/2023 18:14 Procedure: CT ABDOMEN [...] a kidney stone; pt has a hernia [place] [id number] 36 Lm on daughters vm t o advise them to call the number for the online communications manager to get clarification, and to call back with further questions [place] [id number] 36 Yes, they will need to call the number given to them. [facility] 36 Please advise [address] 08-21-2023 36 Name of caller: Zion holt Contact phone number: [phone] Relationship to Patient: patient Provider: MD Quinn [...] to reach out to call Maury Cedeño Needleworker at [facility] [phone] to get clarifications. TEA did reach back out to [facility] and advised and provider Maury's #. Please advise Best time of day caller can be reached: Any Patient advised that office/PCP has 24-48 business hours to return their call: N/A Normal [facility] Laboratory - CoagulationOrde red By: Carlos Cavazos on 08-21-2023 INR Coag (Bld) [Relative time] 2.7 {INR} [facility] PT Coag (PPP) [Time] 28.9 s 11.7-14.9 [facility] Office Visiton 08-13-2023 Follow-up visit [id number] Tamie Sifuentes cheng R 1950 M [facility]asha Provider Department Center 08/13/2023 [id number]-WCXTOCREBECCA [facility]CK [facility] None Family History Problem Relation Age of Onset Heart disease Father Cancer Mother Family Status - Relation Status Age at Father Mother Level of Service:48993 [place] OFFICE/OUTPATIENT NEW MODERATE MDM 45 MINUTES Reason for Visit and Comments: New Patient [542] - Bilateral flank pain, hx of kidney stones Nephrolithiasis [325072] Normal [facility] Progress Noteon 08-13-2023 Progress Note Walt Morna 08/13/2023 at 10:45 AM UROLOGY INITIAL OFFICE [...] Hydrocephalus, adult (CMS/HCC) (HCC) Kidney stone Neuropathy NURSING COORDINATOR (ventriculoperitoneal) shunt status Past Surgical History: Past [...] CT ab (more content not included)... Normal [facility] No Panel InformationOrdered By: Carlos Cavazos on 08-03-2023 Levetiracetam (Keppra) Level 32.4 ug/mL 10.0-40.0 [facility] Comment on above: Performed at: [address] [id number] Director: Alpesh Vázquez MD, Phone: [phone] Basophil percentageOrdered B y: Carlos Cavazos on 07-20-2023 Chloride [Moles/Vol] 106 mmol/L 98-107 [facility] Glucose [Mass/Vol] 98 mg/dL 74-106 [facility] Hemoglobin (Bld) [Mass/Vol] 12.5 g/dL 13.0-16.5 [facility] Potassium [Moles/Vol] 4.3 mmol/L 3.5-5.1 [facility] Sodium [Moles/Vol] 135 mmol/L 136-145 [facility] WBC (Bld) [#/Vol] 13.0 10*3/uL 4.4-11.0 [facility] Determination of erythrocyte mean corpuscular volume (MCV)Ordered By: Carlos Cavazos on 07-20-2023 MCV (RBC) [Entitic vol] 86.2 fL 80-94 [facility] Erythrocyte distribution wid th ratioOrdered By: Carlos Cavazos on 07-20-2023 Erythrocyte distribution width (RBC) [Ratio] 15.3 % 11.6-14.6 [facility] Erythrocyte distribution wid th standard deviationOrdered By: Carlos Cavazos on 07-20-2023 Erythrocyte distribution width (RBC) [Entitic vol] 48.1 fL 35.1-43.9 [facility] Hematocrit Auto (Bld) [Volum e fraction]Ordered By: Carlos Cavazos on 07-20-2023 Hematocrit (Bld) [Volume fraction] 39.9 % 40-54 [facility] Laboratory - Chemistry and C hemistry - challengeOrdered By: Carlos Cavazos on 07-20-2023 CO2 [Moles/Vol] 24.0 mmol/L 21.0-32.0 [facility] Urea nitrogen/Creatinine [Mass ratio] 24.6 mg/mg 10-20 [facility] Laboratory - Hematology and Cell countsOrdered By: Carlos Cavazos on 07-20-2023 MCH (RBC) [Entitic mass] 27.0 pg 27.0-32.0 [facility] MCHC (RBC) [Mass/Vol] 31.3 g/dL 32-36 [facility] Platelet mean volume (Bld) [Entitic vol] 10.7 fL 6.2-12.0 [facility] Platelets (Bld) [#/Vol] 260 10*3/uL 150-450 [facility] No Panel InformationOrdered By: Carlos Cavazos on 07-20-2023 Estimated GFR (MDRD) Amer 114 mL/min >60 [facility] Comment on above: GFR Calc Estimated GFR (MDRD) Non-Af Amer 94 mL/min >60 [facility] Comment on above: Non- GFR Calc RBC Auto (Bld) [#/Vol]Ordere d By: Carlos Cavazos on 07-20-2023 RBC (Bld) [#/Vol] 4.63 10*6/uL 4.6-6.2 [facility] Serum or plasma calcium oral urement (mass/volume)Ordered By: Carlos Cavazos on 07-20-2023 Calcium [Mass/Vol] 8.6 mg/dL 8.5-10.1 [facility] Serum or plasma creatinine m easurement (mass/volume)Ordered By: Carlos Cavazos on 07-20-2023 Creatinine [Mass/Vol] 0.85 mg/dL 0.70-1.30 [facility] Comment on above: The validity of the calculated GFR & GFRAA in patients over 70 years has not been determined. Clinical correlation is essential. Serum or plasma urea nitroge n measurement (mass/volume)Ordered By: Carlos Cavazos on 07-20-2023 Urea nitrogen [Mass/Vol] 21 mg/dL 7-18 [facility] Thin prep Papanicolaou smear with manual screeningOrdered By: Carlos Cavazos on 07-20-2023 Thin prep Papanicolaou smear with manual screening 5 5-15 [facility] Basophil percentageOrdered B y: Carlos Cavazos on 07-18-2023 Chloride [Moles/Vol] 102 mmol/L 98-107 [facility] Glucose [Mass/Vol] 96 mg/dL 74-106 [facility] Hemoglobin (Bld) [Mass/Vol] 12.3 g/dL 13.0-16.5 [facility] Potassium [Moles/Vol] 4.2 mmol/L 3.5-5.1 [facility] Sodium [Moles/Vol] 136 mmol/L 136-145 [facility] WBC (Bld) [#/Vol] 14.7 10*3/uL 4.4-11.0 [facility] Determination of erythrocyte mean corpuscular volume (MCV)Ordered By: Carlos Cavazos on 07-18-2023 MCV (RBC) [Entitic vol] 85.4 fL 80-94 [facility] Erythrocyte distribution wid th ratioOrdered By: Carlos Cavazos on 07-18-2023 Erythrocyte distribution width (RBC) [Ratio] 15.1 % 11.6-14.6 [facility] Erythrocyte distribution wid th standard deviationOrdered By: Carlos Cavazos on 07-18-2023 Erythrocyte distribution width (RBC) [Entitic vol] 47.3 fL 35.1-43.9 [facility] Hematocrit Auto (Bld) [Volum e fraction]Ordered By: Carlos Cavazos on 07-18-2023 Hematocrit (Bld) [Volume fraction] 39.3 % 40-54 [facility] Laboratory - Chemistry and C hemistry - challengeOrdered By: Carlos Cavazos on 07-18-2023 CO2 [Moles/Vol] 27.0 mmol/L 21.0-32.0 [facility] Urea nitrogen/Creatinine [Mass ratio] 24.4 mg/mg 10-20 [facility] Laboratory - Hematology and Cell countsOrdered By: Carlos Cavazos on 07-18-2023 MCH (RBC) [Entitic mass] 26.7 pg 27.0-32.0 [facility] MCHC (RBC) [Mass/Vol] 31.3 g/dL 32-36 [facility] Platelet mean volume (Bld) [Entitic vol] 10.3 fL 6.2-12.0 [facility] Platelets (Bld) [#/Vol] 288 10*3/uL 150-450 [facility] No Panel InformationOrdered By: Carlos Cavazos on 07-18-2023 Estimated GFR (MDRD) Amer 113 mL/min >60 [facility] Comment on above: GFR Calc Estimated GFR (MDRD) Non-Af Amer 93 mL/min >60 [facility] Comment on above: Non- GFR Calc RBC Auto (Bld) [#/Vol]Ordere d By: Carlos Cavazos on 07-18-2023 RBC (Bld) [#/Vol] 4.60 10*6/uL 4.6-6.2 [facility] Serum or plasma calcium oral urement (mass/volume)Ordered By: Carlos Cavazos on 07-18-2023 Calcium [Mass/Vol] 8.9 mg/dL 8.5-10.1 [facility] Serum or plasma creatinine m easurement (mass/volume)Ordered By: Carlos Cavazos on 07-18-2023 Creatinine [Mass/Vol] 0.86 mg/dL 0.70-1.30 [facility] Comment on above: The validity of the calculated GFR & GFRAA in patients over 70 years has not been determined. Clinical correlation is essential. Serum or plasma urea nitroge n measurement (mass/volume)Ordered By: Carlos Cavazos on 07-18-2023 Urea nitrogen [Mass/Vol] 21 mg/dL 7-18 [facility] Thin prep Papanicolaou smear with manual screeningOrdered By: Carlos Cavazos on 07-18-2023 Thin prep Papanicolaou smear with manual screening 7 5-15 [facility] Basophil percentageOrdered B y: Carlos Cavazos on 07-17-2023 Basophil percentage 0-5 SEEN /hpf 0-5 [facility] Bilirubin Test strip Ql (U)O rdered By: Carlos Cavazos on 07-17-2023 Bilirubin Ql (U) Negative Negative [facility] Calcium oxalate crystals det ection in urine sediment by light microscopyOrdered By: Carlos Cavazos on 07-17-2023 Calcium oxalate crystals LM Ql (Urine sed) 1+ /hpf [facility] Culture, urineOrdered By: Sharif Crouch on 07-17-2023 Bacteria identified Cx Nom (U) Positive [facility] Ketones Test strip Ql (U)Ord ered By: Carlos Cavazos on 07-17-2023 Ketones Ql (U) Negative Negative [facility] Mucus LM Ql (Urine sed)Order ed By: Carlos Cavazos on 07-17-2023 Mucus Ql (Urine sed) 0 SEEN /hpf [facility] Nitrite Test strip Ql (U)Ord ered By: Carlos Cavazos on 07-17-2023 Nitrite Ql (U) Negative Negative [facility] No Panel InformationOrdered By: Carlos Cavazos on 07-17-2023 Urine RBC 0 SEEN /hpf 0-5 [facility] Protein Test strip Ql (U)Ord ered By: Carlos Cavazos on 07-17-2023 Protein Ql (U) Negative Negative [facility] Squamous epithelial cells de tection in urine sediment by light microscopyOrdered By: Carlos Cavazos on 07-17-2023 Epithelial cells.squamous LM Ql (Urine sed) 0-5 SEEN /hpf 0-5 [facility] Urine blood detectionOrdered By: Carlos Cavazos on 07-17-2023 RBC Ql (U) Negative Negative [facility] Urine clarityOrdered By: Ted Cavazos on 07-17-2023 Clarity (U) Clear Clear [facility] Urine color determinationOrd ered By: Carlos Cavazos on 07-17-2023 Color (U) Yellow Yellow [facility] Urine glucose detectionOrder ed By: Carlos Cavazos on 07-17-2023 Glucose Ql (U) Normal mg/dl Normal [facility] Urine leukocyte esterase det ection by dipstickOrdered By: Carlos Cavazos on 07-17-2023 Leukocyte esterase Test strip Ql (U) 25 /ul Negative [facility] Urine pHOrdered By: Carlos flores on 07-17-2023 pH (U) 6.0 [pH] 5.0 - 8.0 [facility] Urine sediment bacteria coun t by microscopy (number/high power field)Ordered By: Carlos Cavazos on 07-17-2023 Bacteria LM.HPF (Urine sed) [#/Area] 0 /[HPF] None Seen [facility] Urine specific gravity measu rementOrdered By: Carlos Cavazos on 07-17-2023 Specific gravity (U) [Rel density] 1.020 1.002-1.030 [facility] Urine urobilinogen measureme ntOrdered By: Carlos Cavazos on 07-17-2023 Urobilinogen Ql (U) Normal mg/dl Normal [facility] Absolute lymphocyte countOrd ered By: Carlos Cavazos on 07-16-2023 Lymphocytes Auto (Unsp spec) [#/Vol] 6.02 10*3/uL 0.83-4.51 [facility] Automated lymphocyte count a s percentage of total leukocytesOrdered By: Carlos Cavazos on 07-16-2023 Lymphocytes/100 WBC Auto (Unsp spec) 49.1 % 19-41 [facility] Basophil percentageOrdered B y: Carlos Cavazos on 07-16-2023 Basophils/100 WBC (Bld) 0.6 % 0-1 [facility] Chloride [Moles/Vol] 105 mmol/L 98-107 [facility] Eosinophils/100 WBC (Bld) 2.0 % 0-5 [facility] Glucose [Mass/Vol] 93 mg/dL 74-106 [facility] Hemoglobin (Bld) [Mass/Vol] 12.1 g/dL 13.0-16.5 [facility] Monocytes/100 WBC (Bld) 5.3 % 0-10 [facility] Neutrophils (Bld) [#/Vol] 5.2 10*3/uL 2.0-7.7 [facility] Neutrophils/100 WBC (Bld) 42.8 % 47-70 [facility] Potassium [Moles/Vol] 4.3 mmol/L 3.5-5.1 [facility] Sodium [Moles/Vol] 138 mmol/L 136-145 [facility] WBC (Bld) [#/Vol] 12.3 10*3/uL 4.4-11.0 [facility] Blood manual differential co mment interpretation (narrative result)Ordered By: Carlos Cavazos on 07-16-2023 Manual differential comment Shemar (Bld) [Interp] SCANNED [facility] Determination of erythrocyte mean corpuscular volume (MCV)Ordered By: Carlos Cavazos on 07-16-2023 MCV (RBC) [Entitic vol] 86.8 fL 80-94 [facility] Erythrocyte distribution wid th ratioOrdered By: Carlos Cavazos on 07-16-2023 Erythrocyte distribution width (RBC) [Ratio] 15.3 % 11.6-14.6 [facility] Erythrocyte distribution wid th standard deviationOrdered By: Carlos Cavazos on 07-16-2023 Erythrocyte distribution width (RBC) [Entitic vol] 48.9 fL 35.1-43.9 [facility] Hematocrit Auto (Bld) [Volum e fraction]Ordered By: Carlos Cavazos on 07-16-2023 Hematocrit (Bld) [Volume fraction] 38.7 % 40-54 [facility] Immature granulocytes/100 WB C Auto (Bld)Ordered By: Carlos Cavazos on 07-16-2023 Immature granulocytes/100 WBC (Bld) 0.200 % 0.0-0.9 [facility] Comment on above: IG% - Immature Granu locytes (promyelocytes, myelocytes and metamyelocytes) > 1% indicates that a LEFT SHIFT is Present. Laboratory - Chemistry and C hemistry - challengeOrdered By: Carlos Cavazos on 07-16-2023 CO2 [Moles/Vol] 25.0 mmol/L 21.0-32.0 [facility] Urea nitrogen/Creatinine [Mass ratio] 21.0 mg/mg 10-20 [facility] Laboratory - CoagulationOrde red By: Carlos Cavazos on 07-16-2023 INR Coag (Bld) [Relative time] 2.4 {INR} [facility] PT Coag (PPP) [Time] 25.7 s 11.7-14.9 [facility] Laboratory - Hematology and Cell countsOrdered By: Carlos Cavazos on 07-16-2023 MCH (RBC) [Entitic mass] 27.1 pg 27.0-32.0 [facility] MCHC (RBC) [Mass/Vol] 31.3 g/dL 32-36 [facility] Nucleated RBC/100 WBC (Bld) [Ratio] 0 % 0-5 [facility] Platelet mean volume (Bld) [Entitic vol] 10.5 fL 6.2-12.0 [facility] Platelets (Bld) [#/Vol] 289 10*3/uL 150-450 [facility] No Panel InformationOrdered By: Carlos Cavazos on 07-16-2023 Estimated GFR (MDRD) Amer 106 mL/min >60 [facility] Comment on above: GFR Calc Estimated GFR (MDRD) Non-Af Amer 88 mL/min >60 [facility] Comment on above: Non- GFR Calc Reactive Lymphocytes 1+ [facility] RBC Auto (Bld) [#/Vol]Ordere d By: Carlos Cavazos on 07-16-2023 RBC (Bld) [#/Vol] 4.46 10*6/uL 4.6-6.2 [facility] Serum or plasma calcium oral urement (mass/volume)Ordered By: Carlos Cavazos on 07-16-2023 Calcium [Mass/Vol] 9.0 mg/dL 8.5-10.1 [facility] Serum or plasma creatinine m easurement (mass/volume)Ordered By: Carlos Cavazos on 07-16-2023 Creatinine [Mass/Vol] 0.90 mg/dL 0.70-1.30 [facility] Comment on above: The validity of the calculated GFR & GFRAA in patients over 70 years has not been determined. Clinical correlation is essential. Serum or plasma urea nitroge n measurement (mass/volume)Ordered By: Carlos Cavazos on 07-16-2023 Urea nitrogen [Mass/Vol] 19 mg/dL 7-18 [facility] Thin prep Papanicolaou smear with manual screeningOrdered By: Carlos Cavazos on 07-16-2023 Thin prep Papanicolaou smear with manual screening 8 5-15 [facility] Absolute lymphocyte countOrd ered By: Carlos Cavazos on 07-13-2023 Lymphocytes Auto (Unsp spec) [#/Vol] 5.44 10*3/uL 0.83-4.51 [facility] Automated lymphocyte count a s percentage of total leukocytesOrdered By: Carlos Cavazos on 07-13-2023 Lymphocytes/100 WBC Auto (Unsp spec) 47.3 % 19-41 [facility] Basophil percentageOrdered B y: Carlos Cavazos on 07-13-2023 Basophils/100 WBC (Bld) 0.4 % 0-1 [facility] Chloride [Moles/Vol] 107 mmol/L 98-107 [facility] Eosinophils/100 WBC (Bld) 1.7 % 0-5 [facility] Glucose [Mass/Vol] 96 mg/dL 74-106 [facility] Hemoglobin (Bld) [Mass/Vol] 13.5 g/dL 13.0-16.5 [facility] Monocytes/100 WBC (Bld) 4.3 % 0-10 [facility] Neutrophils (Bld) [#/Vol] 5.3 10*3/uL 2.0-7.7 [facility] Neutrophils/100 WBC (Bld) 46.0 % 47-70 [facility] Potassium [Moles/Vol] 4.0 mmol/L 3.5-5.1 [facility] Sodium [Moles/Vol] 139 mmol/L 136-145 [facility] WBC (Bld) [#/Vol] 11.5 10*3/uL 4.4-11.0 [facility] Determination of erythrocyte mean corpuscular volume (MCV)Ordered By: Carlos Cavazos on 07-13-2023 MCV (RBC) [Entitic vol] 86.1 fL 80-94 [facility] Erythrocyte distribution wid th ratioOrdered By: Carlos Cavazos on 07-13-2023 Erythrocyte distribution width (RBC) [Ratio] 15.2 % 11.6-14.6 [facility] Erythrocyte distribution wid th standard deviationOrdered By: Carlos Cavazos on 07-13-2023 Erythrocyte distribution width (RBC) [Entitic vol] 48.0 fL 35.1-43.9 [facility] Hematocrit Auto (Bld) [Volum e fraction]Ordered By: Carlos Cavazos on 07-13-2023 Hematocrit (Bld) [Volume fraction] 42.2 % 40-54 [facility] Immature granulocytes/100 WB C Auto (Bld)Ordered By: Carlos Cavazos on 07-13-2023 Immature granulocytes/100 WBC (Bld) 0.300 % 0.0-0.9 [facility] Comment on above: IG% - Immature Granu locytes (promyelocytes, myelocytes and metamyelocytes) > 1% indicates that a LEFT SHIFT is Present. Laboratory - Chemistry and C hemistry - challengeOrdered By: Carlos Cavazos on 07-13-2023 CO2 [Moles/Vol] 26.0 mmol/L 21.0-32.0 [facility] Urea nitrogen/Creatinine [Mass ratio] 21.8 mg/mg 10-20 [facility] Laboratory - Hematology and Cell countsOrdered By: Carlos Cavazos on 07-13-2023 MCH (RBC) [Entitic mass] 27.6 pg 27.0-32.0 [facility] MCHC (RBC) [Mass/Vol] 32.0 g/dL 32-36 [facility] Nucleated RBC/100 WBC (Bld) [Ratio] 0 % 0-5 [facility] Platelet mean volume (Bld) [Entitic vol] 10.1 fL 6.2-12.0 [facility] Platelets (Bld) [#/Vol] 279 10*3/uL 150-450 [facility] No Panel InformationOrdered By: Carlos Cavazos on 07-13-2023 Estimated GFR (MDRD) Amer 118 mL/min >60 [facility] Comment on above: GFR Calc Estimated GFR (MDRD) Non-Af Amer 98 mL/min >60 [facility] Comment on above: Non- GFR Calc Levetiracetam (Keppra) Level 25.5 ug/mL 10.0-40.0 [facility] Comment on above: Performed at: [address] [id number] Director: Alpesh Vázquez MD, Phone: [phone] RBC Auto (Bld) [#/Vol]Ordere d By: Carlos Cavazos on 07-13-2023 RBC (Bld) [#/Vol] 4.90 10*6/uL 4.6-6.2 [facility] Serum or plasma calcium oral urement (mass/volume)Ordered By: Carlos Cavazos on 07-13-2023 Calcium [Mass/Vol] 9.1 mg/dL 8.5-10.1 [facility] Serum or plasma creatinine m easurement (mass/volume)Ordered By: Carlos Cavazos on 07-13-2023 Creatinine [Mass/Vol] 0.82 mg/dL 0.70-1.30 [facility] Comment on above: The validity of the calculated GFR & GFRAA in patients over 70 years has not been determined. Clinical correlation is essential. Serum or plasma urea nitroge n measurement (mass/volume)Ordered By: Carlos Cavazos on 07-13-2023 Urea nitrogen [Mass/Vol] 18 mg/dL 7-18 [facility] Thin prep Papanicolaou smear with manual screeningOrdered By: Carlos Cavazos on 07-13-2023 Thin prep Papanicolaou smear with manual screening 6 5-15 [facility] No Panel InformationOrdered By: Carlos Cavazos on 07-12-2023 Valproic Acid (Depakene) Level < 3 ug/mL 50-100 [facility] Laboratory - CoagulationOrde red By: Carlos Cavazos on 07-05-2023 INR Coag (Bld) [Relative time] 2.4 {INR} [facility] PT Coag (PPP) [Time] 26.3 s 11.7-14.9 [facility] Laboratory - CoagulationOrde red By: Carlos Cavazos on 07-02-2023 INR Coag (Bld) [Relative time] 1.5 {INR} [facility] PT Coag (PPP) [Time] 18.5 s 11.7-14.9 [facility] Laboratory - CoagulationOrde red By: Carlos Cavazos on 06-28-2023 INR Coag (Bld) [Relative time] 1.7 {INR} [facility] PT Coag (PPP) [Time] 20.5 s 11.7-14.9 [facility] 36on 06-25-2023 36 [facility] called in stating appt scheduled 07/10/23 [place] has to be made further out, pt being transported by cot. Changed appt to 08/13/23 per [facility] only avail time for transport, first avail with DR Buck at 10:00 AM. [facility] Laboratory - CoagulationOrde red By: Carlos Cavazos on 06-25-2023 INR Coag (Bld) [Relative time] 3.8 {INR} [facility] PT Coag (PPP) [Time] 38.2 s 11.7-14.9 [facility] Laboratory - CoagulationOrde red By: Carlos Cavazos on 06-21-2023 INR Coag (Bld) [Relative time] 3.2 {INR} [facility] PT Coag (PPP) [Time] 32.9 s 11.7-14.9 [facility] No Panel InformationOrdered By: Carlos Cavazos on 06-13-2023 Valproic Acid (Depakene) Level < 3 ug/mL 50-100 [facility] Laboratory - CoagulationOrde red By: Carlos Cavazos on 06-06-2023 PT Coag (PPP) [Time] 30.5 s 11.7-14.9 [facility] Platelet poor plasma interna tional normalized ratio (INR)Ordered By: Carlos Cavazos on 06-06-2023 INR Coag (PPP) [Relative time] 2.9 {INR} [facility] International normalized rat io (INR) calculationOrdered By: Carlos Cavazos on 05-23-2023 INR Coag (PPP) [Relative time] 2.6 {INR} [facility] Laboratory - CoagulationOrde red By: Carlos Cavazos on 05-23-2023 PT Coag (PPP) [Time] 27.7 s 11.7-14.9 [facility] Laboratory - CoagulationOrde red By: Carlos Cavazos on 05-09-2023 PT Coag (PPP) [Time] 24.1 s 11.7-14.9 [facility] Whole blood international no rmalized ratio (INR)Ordered By: Carlos Cavazos on 05-09-2023 INR Coag (Bld) [Relative time] 2.1 {INR} [facility] Laboratory - CoagulationOrde red By: Carlos Cavazos on 04-23-2023 PT Coag (PPP) [Time] 26.4 s 11.7-14.9 [facility] Whole blood international no rmalized ratio (INR)Ordered By: Carlos Cavazos on 04-23-2023 INR Coag (Bld) [Relative time] 2.4 {INR} [facility] INR in Blood by Coagulation assayOrdered By: Carlos Cavazos on 04-09-2023 INR Coag (Bld) [Relative time] 2.1 {INR} [facility] Laboratory - CoagulationOrde red By: Carlos Cavazos on 04-09-2023 PT Coag (PPP) [Time] 23.9 s 11.7-14.9 [facility] INR in Blood by Coagulation assayOrdered By: Carlos Cavazos on 04-02-2023 INR Coag (Bld) [Relative time] 2.2 {INR} [facility] Laboratory - CoagulationOrde red By: Carlos Cavazos on 04-02-2023 PT Coag (PPP) [Time] 24.5 s 11.7-14.9 [facility] INR in Blood by Coagulation assayOrdered By: Carlos Cavazos on 03-26-2023 INR Coag (Bld) [Relative time] 1.7 {INR} [facility] Laboratory - CoagulationOrde red By: Carlos Cavazos on 03-26-2023 PT Coag (PPP) [Time] 19.9 s 11.7-14.9 [facility] INR in Blood by Coagulation assayOrdered By: Carlos Cavazos on 03-22-2023 INR Coag (Bld) [Relative time] 1.3 {INR} [facility] Laboratory - CoagulationOrde red By: Carlos Cavazos on 03-22-2023 PT Coag (PPP) [Time] 16.4 s 11.7-14.9 [facility] INR in Blood by Coagulation assayOrdered By: Carlos Cavazos on 03-08-2023 INR Coag (Bld) [Relative time] 2.0 {INR} [facility] Laboratory - CoagulationOrde red By: Carlos Cavazos on 03-08-2023 PT Coag (PPP) [Time] 22.5 s 11.7-14.9 [facility] Laboratory - CoagulationOrde red By: Carlos Cavazos on 02-22-2023 INR Coag (Bld) [Relative time] 2.2 {INR} [facility] Comment on above: Critical Value > 4.0 Whole blood prothrombin time Ordered By: Carlos Cavazos on 02-22-2023 PT Coag (Bld) [Time] 24.0 s 11.7-14.9 [facility] INR in Blood by Coagulation assayOrdered By: Cliff Bruner on 02-15-2023 INR Coag (Bld) [Relative time] 2.0 {INR} [facility] Laboratory - CoagulationOrde red By: Cliff Bruner on 02-15-2023 PT Coag (PPP) [Time] 22.8 s 11.7-14.9 [facility] INR in Blood by Coagulation assayOrdered By: Carlos Cavazos on 02-08-2023 INR Coag (Bld) [Relative time] 2.1 {INR} [facility] - CoagulationOrde red By: Carlos Cavazos on 02-08-2023 PT Coag (PPP) [Time] 23.5 s 11.7-14.9 [facility] INR in Blood by Coagulation assayOrdered By: Carlos Cavazos on 01-31-2023 INR Coag (Bld) [Relative time] 2.0 {INR} [facility] - CoagulationOrde red By: Carlos Cavazos on 01-31-2023 PT Coag (PPP) [Time] 22.4 s 11.7-14.9 [facility] - CoagulationOrde red By: Carlos Cavazos on 01-29-2023 INR Coag (Bld) [Relative time] 1.8 {INR} [facility] Comment on above: Critical Value > 4.0 Whole blood prothrombin time Ordered By: Carlos Cavazos on 01-29-2023 PT Coag (Bld) [Time] 19.9 s 11.7-14.9 [facility] INR in Blood by Coagulation assayOrdered By: Carlos Cavazos on 01-26-2023 INR Coag (Bld) [Relative time] 1.5 {INR} [facility] - CoagulationOrde red By: Carlos Cavazos on 01-26-2023 PT Coag (PPP) [Time] 18.3 s 11.7-14.9 [facility] INR in Blood by Coagulation assayOrdered By: Carlos Cavazos on 01-24-2023 INR Coag (Bld) [Relative time] 1.3 {INR} [facility] - CoagulationOrde red By: Carlos Cavazos on 01-24-2023 PT Coag (PPP) [Time] 16.2 s 11.7-14.9 [facility] Basophil percentageOrdered B y: Carlos Cavazos on 01-22-2023 Basophil percentage 0 SEEN /hpf 0-5 [facility] Bilirubin Test strip Ql (U)O rdered By: Carlos Cavazos on 01-22-2023 Bilirubin Ql (U) Negative Negative [facility] Calcium oxalate crystals det ection in urine sediment by light microscopyOrdered By: Carlos Cavazos on 01-22-2023 Calcium oxalate crystals LM Ql (Urine sed) 1+ /hpf [facility] Culture, urineOrdered By: Sharif Crouch on 01-22-2023 Bacteria identified Cx Nom (U) Positive [facility] Ketones Test strip Ql (U)Ord ered By: Carlos Cavazos on 01-22-2023 Ketones Ql (U) Negative Negative [facility] Mucus LM Ql (Urine sed)Order ed By: Carlos Cavazos on 01-22-2023 Mucus Ql (Urine sed) 1+ /hpf [facility] Nitrite Test strip Ql (U)Ord ered By: Carlos Cavazos on 01-22-2023 Nitrite Ql (U) Negative Negative [facility] Protein Test strip Ql (U)Ord ered By: Carlos Cavazos on 01-22-2023 Protein Ql (U) Negative Negative [facility] Squamous epithelial cells de tection in urine sediment by light microscopyOrdered By: Carlos Cavazos on 01-22-2023 Epithelial cells.squamous LM Ql (Urine sed) 0 SEEN /hpf 0-5 [facility] Urine blood detectionOrdered By: Carlos Cavazos on 01-22-2023 RBC Ql (U) Negative Negative [facility] RBC Ql (U) 0 SEEN /hpf 0-5 [facility] Urine clarityOrdered By: Ted Cavazos on 01-22-2023 Clarity (U) Sl. Cloudy Clear [facility] Urine color determinationOrd ered By: Carlos Cavazos on 01-22-2023 Color (U) Yellow Yellow [facility] Urine glucose detectionOrder ed By: Carlos Cavazos on 01-22-2023 Glucose Ql (U) Normal mg/dl Normal [facility] Urine leukocyte esterase det ection by dipstickOrdered By: Carlos Cavazos on 01-22-2023 Leukocyte esterase Test strip Ql (U) Negative Negative [facility] Urine pHOrdered By: Carlos flores on 01-22-2023 pH (U) 5.0 [pH] 5.0 - 8.0 [facility] Urine sediment bacteria coun t by microscopy (number/high power field)Ordered By: Carlos Cavazos on 01-22-2023 Bacteria LM.HPF (Urine sed) [#/Area] 2 /[HPF] None Seen [facility] Urine specific gravity measu rementOrdered By: Carlos Cavazos on 01-22-2023 Specific gravity (U) [Rel density] 1.025 1.002-1.030 [facility] Urobilinogen Auto test strip Ql (U)Ordered By: Cralos Cavazos on 01-22-2023 Urobilinogen Ql (U) Normal mg/dl Normal [facility] INR in Blood by Coagulation assayOrdered By: Carlos Cavazos on 01-10-2023 INR Coag (Bld) [Relative time] 2.0 {INR} [facility] - CoagulationOrde red By: Carlos Cavazos on 01-10-2023 PT Coag (PPP) [Time] 22.6 s 11.7-14.9 [facility] INR in Blood by Coagulation assayOrdered By: Carlos Cavazos on 12-27-2022 INR Coag (Bld) [Relative time] 2.1 {INR} [facility] - CoagulationOrde red By: Carlos Cavazos on 12-27-2022 PT Coag (PPP) [Time] 24.1 s 11.7-14.9 [facility] INR in Blood by Coagulation assayOrdered By: Carlos Cavazos on 12-21-2022 INR Coag (Bld) [Relative time] 2.4 {INR} [facility] - CoagulationOrde red By: Carlos Cavazos on 12-21-2022 PT Coag (PPP) [Time] 26.7 s 11.7-14.9 [facility] - CoagulationOrde red By: Carlos Cavazos on 12-14-2022 INR Coag (Bld) [Relative time] 2.3 {INR} [facility] Comment on above: Critical Value > 4.0 Whole blood prothrombin time Ordered By: Carlos Cavazos on 12-14-2022 PT Coag (Bld) [Time] 25.2 s 11.7-14.9 [facility] - CoagulationOrde red By: Carlos Cavazos on 12-07-2022 INR Coag (Bld) [Relative time] 2.5 {INR} [facility] Comment on above: Critical Value > 4.0 Whole blood prothrombin time Ordered By: Carlos Cavazos on 12-07-2022 PT Coag (Bld) [Time] 26.9 s 11.7-14.9 [facility] Amorphous sediment detection in urine sediment by light microscopyOrdered By: Carlos Cavazos on 11-24-2022 Amorphous sediment LM Ql (Urine sed) 1+ [facility] Basophil percentageOrdered B y: Carlos Cavazos on 11-24-2022 Basophil percentage 0 SEEN /hpf 0-5 [facility] Bilirubin [Mass/Vol] 0.30 mg/dL 0.20-1.00 [facility] Comment on above: For patients on eltr ombopag therapy, use of [employer] [place] TBIL is not recommended. Chloride [Moles/Vol] 107 mmol/L 98-107 [facility] Glucose [Mass/Vol] 95 mg/dL 74-106 [facility] Potassium [Moles/Vol] 4.2 mmol/L 3.5-5.1 [facility] Protein [Mass/Vol] 6.9 g/dL 6.4-8.2 [facility] Sodium [Moles/Vol] 138 mmol/L 136-145 [facility] WBC (Bld) [#/Vol] 10.4 10*3/uL 4.4-11.0 [facility] Bilirubin Test strip Ql (U)O rdered By: Carlos Cavazos on 11-24-2022 Bilirubin Ql (U) Negative Negative [facility] Blood erythrocytes count (nu mber/volume)Ordered By: Carlos Cavazos on 11-24-2022 RBC (Bld) [#/Vol] 4.44 10*6/uL 4.6-6.2 [facility] Blood hemoglobin measurement (mass/volume)Ordered By: Carlos Cavazos on 11-24-2022 Hemoglobin (Bld) [Mass/Vol] 11.8 g/dL 13.0-16.5 [facility] Blood platelet mean volumeOr dered By: Carlos Cavazos on 11-24-2022 Platelet mean volume (Bld) [Entitic vol] 9.7 fL 6.2-12.0 [facility] Calcium oxalate crystals det ection in urine sediment by light microscopyOrdered By: Carlos Cavazos on 11-24-2022 Calcium oxalate crystals LM Ql (Urine sed) RARE /hpf [facility] Culture, urineOrdered By: Sharif Crouch on 11-24-2022 Bacteria identified Cx Nom (U) Positive [facility] Determination of erythrocyte mean corpuscular volume (MCV)Ordered By: Carlos Cavazos on 11-24-2022 MCV (RBC) [Entitic vol] 84.7 fL 80-94 [facility] Hematocrit Auto (Bld) [Volum e fraction]Ordered By: Carlos Cavazos on 11-24-2022 Hematocrit (Bld) [Volume fraction] 37.6 % 40-54 [facility] Ketones Test strip Ql (U)Ord ered By: Carlos Cavazos on 11-24-2022 Ketones Ql (U) Negative Negative [facility] - Chemistry and C hemistry - challengeOrdered By: Carlos Cavazos on 11-24-2022 ALP [Catalytic activity/Vol] 103 U/L 45-117 [facility] ALT [Catalytic activity/Vol] 14 U/L 16-61 [facility] CO2 [Moles/Vol] 26.0 mmol/L 21.0-32.0 [facility] Globulin (S) [Mass/Vol] 4.0 g/dL 2.2-4.2 [facility] Urea nitrogen/Creatinine [Mass ratio] 24.1 mg/mg 10-20 [facility] - Hematology and Cell countsOrdered By: Carlos Cavazos on 11-24-2022 Erythrocyte distribution width (RBC) [Entitic vol] 49.4 fL 35.1-43.9 [facility] Erythrocyte distribution width (RBC) [Ratio] 16.0 % 11.6-14.6 [facility] MCH (RBC) [Entitic mass] 26.6 pg 27.0-32.0 [facility] MCHC Auto (RBC) [Mass/Vol]Or dered By: Carlos Cavazos on 11-24-2022 MCHC (RBC) [Mass/Vol] 31.4 g/dL 32-36 [facility] Mucus LM Ql (Urine sed)Order ed By: Carlos Cavazos on 11-24-2022 Mucus Ql (Urine sed) 0 SEEN /hpf [facility] Nitrite Test strip Ql (U)Ord ered By: Carlos Cavazos on 11-24-2022 Nitrite Ql (U) Negative Negative [facility] No Panel InformationOrdered By: Carlos Cavazos on 11-24-2022 Estimated GFR (MDRD) Amer 118 mL/min >60 [facility] Comment on above: GFR Calc Estimated GFR (MDRD) Non-Af Amer 97 mL/min >60 [facility] Comment on above: Non- GFR Calc Platelets bldOrdered By: Ted Cavazos on 11-24-2022 Platelets (Bld) [#/Vol] 309 10*3/uL 150-450 [facility] Protein Test strip Ql (U)Ord ered By: Carlos Cavazos on 11-24-2022 Protein Ql (U) Negative Negative [facility] Serum or plasma albumin oral urement (mass/volume)Ordered By: Carlos Cavazos on 11-24-2022 Albumin [Mass/Vol] 2.9 g/dL 3.2-5.0 [facility] Serum or plasma albumin/glob ulin mass ratioOrdered By: Carlos Cavazos on 11-24-2022 Albumin/Globulin [Mass ratio] 0.7 {ratio} 0.9-2.4 [facility] Serum or plasma calcium oral urement (mass/volume)Ordered By: Carlos Cavazos on 11-24-2022 Calcium [Mass/Vol] 8.7 mg/dL 8.5-10.1 [facility] Serum or plasma creatinine m easurement (mass/volume)Ordered By: Carlos Cavazos on 11-24-2022 Creatinine [Mass/Vol] 0.83 mg/dL 0.70-1.30 [facility] Comment on above: The validity of the calculated GFR & GFRAA in patients over 70 years has not been determined. Clinical correlation is essential. Serum or plasma urea nitroge n measurement (mass/volume)Ordered By: Carlos Cavazos on 11-24-2022 Urea nitrogen [Mass/Vol] 20 mg/dL 7-18 [facility] Squamous epithelial cells de tection in urine sediment by light microscopyOrdered By: Carlos Cavazos on 11-24-2022 Epithelial cells.squamous LM Ql (Urine sed) 0 SEEN /hpf 0-5 [facility] Thin prep Papanicolaou smear with manual screeningOrdered By: Carlos Cavazos on 11-24-2022 Thin prep Papanicolaou smear with manual screening 10 U/L 15-37 [facility] Thin prep Papanicolaou smear with manual screening 5 5-15 [facility] Urine blood detectionOrdered By: Carlos Cavazos on 11-24-2022 RBC Ql (U) Negative Negative [facility] RBC Ql (U) 0 SEEN /hpf 0-5 [facility] Urine clarityOrdered By: Ted Cavazos on 11-24-2022 Clarity (U) Clear Clear [facility] Urine color determinationOrd ered By: Carlos Cvaazos on 11-24-2022 Color (U) Yellow Yellow [facility] Urine glucose detectionOrder ed By: Carlos Cavazos on 11-24-2022 Glucose Ql (U) Normal mg/dl Normal [facility] Urine leukocyte esterase det ection by dipstickOrdered By: Carlos Cavazos on 11-24-2022 Leukocyte esterase Test strip Ql (U) Negative Negative [facility] Urine pHOrdered By: Carlos flores on 11-24-2022 pH (U) 7.0 [pH] 5.0 - 8.0 [facility] Urine sediment bacteria coun t by microscopy (number/high power field)Ordered By: Carlos Cavazos on 11-24-2022 Bacteria LM.HPF (Urine sed) [#/Area] 0 /[HPF] None Seen [facility] Urine specific gravity measu rementOrdered By: Carlos Cavazos on 11-24-2022 Specific gravity (U) [Rel density] 1.010 1.002-1.030 [facility] Urobilinogen Auto test strip Ql (U)Ordered By: Carlos Cavazos on 11-24-2022 Urobilinogen Ql (U) Normal mg/dl Normal [facility] - CoagulationOrde red By: Carlos Cavazos on 11-23-2022 INR Coag (Bld) [Relative time] 2.2 {INR} [facility] Comment on above: Critical Value > 4.0 Whole blood prothrombin time Ordered By: Carlos Cavazos on 11-23-2022 PT Coag (Bld) [Time] 24.5 s 11.7-14.9 [facility] Basophil percentageOrdered B y: Carlos Cavazos on 11-22-2022 Chloride [Moles/Vol] 105 mmol/L 98-107 [facility] Glucose [Mass/Vol] 91 mg/dL 74-106 [facility] Potassium [Moles/Vol] 4.1 mmol/L 3.5-5.1 [facility] Sodium [Moles/Vol] 138 mmol/L 136-145 [facility] WBC (Bld) [#/Vol] 12.0 10*3/uL 4.4-11.0 [facility] Blood erythrocytes count (nu mber/volume)Ordered By: Carlos Cavazos on 11-22-2022 RBC (Bld) [#/Vol] 4.65 10*6/uL 4.6-6.2 [facility] Blood hemoglobin measurement (mass/volume)Ordered By: Carlos Cavazos on 11-22-2022 Hemoglobin (Bld) [Mass/Vol] 12.4 g/dL 13.0-16.5 [facility] Blood platelet mean volumeOr dered By: Carlos Cavazos on 11-22-2022 Platelet mean volume (Bld) [Entitic vol] 10.3 fL 6.2-12.0 [facility] Determination of erythrocyte mean corpuscular volume (MCV)Ordered By: Carlos Cavazos on 11-22-2022 MCV (RBC) [Entitic vol] 86.0 fL 80-94 [facility] Hematocrit Auto (Bld) [Volum e fraction]Ordered By: Carlos Cavazos on 11-22-2022 Hematocrit (Bld) [Volume fraction] 40.0 % 40-54 [facility] - Chemistry and C hemistry - challengeOrdered By: Carlos Cavazos on 11-22-2022 CO2 [Moles/Vol] 25.0 mmol/L 21.0-32.0 [facility] Urea nitrogen/Creatinine [Mass ratio] 23.6 mg/mg 10-20 [facility] - Hematology and Cell countsOrdered By: Carlos Cavazos on 11-22-2022 Erythrocyte distribution width (RBC) [Entitic vol] 50.0 fL 35.1-43.9 [facility] Erythrocyte distribution width (RBC) [Ratio] 15.9 % 11.6-14.6 [facility] MCH (RBC) [Entitic mass] 26.7 pg 27.0-32.0 [facility] MCHC Auto (RBC) [Mass/Vol]Or dered By: Carlos Cavazos on 11-22-2022 MCHC (RBC) [Mass/Vol] 31.0 g/dL 32-36 [facility] No Panel InformationOrdered By: Carlos Cavazos on 11-22-2022 Estimated GFR (MDRD) Amer 115 mL/min >60 [facility] Comment on above: GFR Calc Estimated GFR (MDRD) Non-Af Amer 95 mL/min >60 [facility] Comment on above: Non- GFR Calc Platelets bldOrdered By: Pet er Kenny on 11-22-2022 Platelets (Bld) [#/Vol] 320 10*3/uL 150-450 [facility] Serum or plasma calcium oral urement (mass/volume)Ordered By: Carlos Cavazos on 11-22-2022 Calcium [Mass/Vol] 8.7 mg/dL 8.5-10.1 [facility] Serum or plasma creatinine m easurement (mass/volume)Ordered By: Carlos Cavazos on 11-22-2022 Creatinine [Mass/Vol] 0.85 mg/dL 0.70-1.30 [facility] Comment on above: The validity of the calculated GFR & GFRAA in patients over 70 years has not been determined. Clinical correlation is essential. Serum or plasma urea nitroge n measurement (mass/volume)Ordered By: Carlos Cavazos on 11-22-2022 Urea nitrogen [Mass/Vol] 20 mg/dL 7-18 [facility] Thin prep Papanicolaou smear with manual screeningOrdered By: Carlos Cavazos on 11-22-2022 Thin prep Papanicolaou smear with manual screening 8 5-15 [facility] - CoagulationOrde red By: Carlos Cavazos on 11-09-2022 INR Coag (Bld) [Relative time] 2.1 {INR} [facility] Comment on above: Critical Value > 4.0 Whole blood prothrombin time Ordered By: Carlos Cavazos on 11-09-2022 PT Coag (Bld) [Time] 22.6 s 11.7-14.9 [facility] - CoagulationOrde red By: Carlos Cavazos on 10-26-2022 INR Coag (Bld) [Relative time] 2.6 {INR} [facility] Comment on above: Critical Value > 4.0 Whole blood prothrombin time Ordered By: Carlos Cavazos on 10-26-2022 PT Coag (Bld) [Time] 28.5 s 11.7-14.9 [facility] - CoagulationOrde red By: Carlos Cavazos on 10-12-2022 INR Coag (Bld) [Relative time] 2.4 {INR} [facility] Comment on above: Critical Value > 4.0 Whole blood prothrombin time Ordered By: Carlos Cavazos on 10-12-2022 PT Coag (Bld) [Time] 26.4 s 11.7-14.9 [facility] - CoagulationOrde red By: Carlos Cavazos on 10-05-2022 INR Coag (Bld) [Relative time] 2.6 {INR} [facility] Comment on above: Critical Value > 4.0 Whole blood prothrombin time Ordered By: Carlos Cavazos on 10-05-2022 PT Coag (Bld) [Time] 28.0 s 11.7-14.9 [facility] - CoagulationOrde red By: Carlos Cavazos on 09-28-2022 INR Coag (Bld) [Relative time] 2.7 {INR} [facility] Comment on above: Critical Value > 4.0 Whole blood prothrombin time Ordered By: Carols Cavazos on 09-28-2022 PT Coag (Bld) [Time] 28.9 s 11.7-14.9 [facility] - CoagulationOrde red By: Carlos Cavazos on 09-14-2022 INR Coag (Bld) [Relative time] 2.5 {INR} [facility] Comment on above: Critical Value > 4.0 Whole blood prothrombin time Ordered By: Carlos Cavazos on 09-14-2022 PT Coag (Bld) [Time] 27.4 s 11.7-14.9 [facility] - CoagulationOrde red By: Carlos Cavazos on 08-31-2022 INR Coag (Bld) [Relative time] 2.3 {INR} [facility] Comment on above: Critical Value > 4.0 Whole blood prothrombin time Ordered By: Carlos Cavazos on 08-31-2022 PT Coag (Bld) [Time] 25.4 s 11.7-14.9 [facility] Basophil percentageOrdered B y: Carlos Cavazos on 08-23-2022 Chloride [Moles/Vol] 108 mmol/L 98-107 [facility] Glucose [Mass/Vol] 86 mg/dL 74-106 [facility] Potassium [Moles/Vol] 4.3 mmol/L 3.5-5.1 [facility] Sodium [Moles/Vol] 136 mmol/L 136-145 [facility] WBC (Bld) [#/Vol] 10.0 10*3/uL 4.4-11.0 [facility] Blood erythrocytes count (nu mber/volume)Ordered By: Carlos Cavazos on 08-23-2022 RBC (Bld) [#/Vol] 4.77 10*6/uL 4.6-6.2 [facility] Blood hemoglobin measurement (mass/volume)Ordered By: Carlos Cavazos on 08-23-2022 Hemoglobin (Bld) [Mass/Vol] 12.5 g/dL 13.0-16.5 [facility] Blood platelet mean volumeOr dered By: Carlos Cavazos on 08-23-2022 Platelet mean volume (Bld) [Entitic vol] 11.0 fL 6.2-12.0 [facility] Determination of erythrocyte mean corpuscular volume (MCV)Ordered By: Carlos Cavazos on 08-23-2022 MCV (RBC) [Entitic vol] 84.3 fL 80-94 [facility] Hematocrit Auto (Bld) [Volum e fraction]Ordered By: Carlos Cavazos on 08-23-2022 Hematocrit (Bld) [Volume fraction] 40.2 % 40-54 [facility] - Chemistry and C hemistry - challengeOrdered By: Carlos Cavazos on 08-23-2022 CO2 [Moles/Vol] 24.0 mmol/L 21.0-32.0 [facility] Urea nitrogen/Creatinine [Mass ratio] 22.8 mg/mg 10-20 [facility] - Hematology and Cell countsOrdered By: Carlos Cavazos on 08-23-2022 Erythrocyte distribution width (RBC) [Entitic vol] 49.3 fL 35.1-43.9 [facility] Erythrocyte distribution width (RBC) [Ratio] 16.0 % 11.6-14.6 [facility] MCH (RBC) [Entitic mass] 26.2 pg 27.0-32.0 [facility] MCHC Auto (RBC) [Mass/Vol]Or dered By: Carlos Cavazos on 08-23-2022 MCHC (RBC) [Mass/Vol] 31.1 g/dL 32-36 [facility] No Panel InformationOrdered By: Carlos Cavazos on 08-23-2022 Estimated GFR (MDRD) Amer 134 mL/min >60 [facility] Comment on above: GFR Calc Estimated GFR (MDRD) Non-Af Amer 110 mL/min >60 [facility] Comment on above: Non- GFR Calc Platelets bldOrdered By: Ted Cavazos on 08-23-2022 Platelets (Bld) [#/Vol] 268 10*3/uL 150-450 [facility] Serum or plasma calcium oral urement (mass/volume)Ordered By: Carlos Cavazos on 08-23-2022 Calcium [Mass/Vol] 9.1 mg/dL 8.5-10.1 [facility] Serum or plasma creatinine m easurement (mass/volume)Ordered By: Carlos Cavazos on 08-23-2022 Creatinine [Mass/Vol] 0.74 mg/dL 0.70-1.30 [facility] Comment on above: The validity of the calculated GFR & GFRAA in patients over 70 years has not been determined. Clinical correlation is essential. Serum or plasma urea nitroge n measurement (mass/volume)Ordered By: Carlos Cavazos on 08-23-2022 Urea nitrogen [Mass/Vol] 17 mg/dL 7-18 [facility] Thin prep Papanicolaou smear with manual screeningOrdered By: Carlos Cavazos on 08-23-2022 Thin prep Papanicolaou smear with manual screening 4 5-15 [facility] - CoagulationOrde red By: Carlos Cavazos on 08-17-2022 INR Coag (Bld) [Relative time] 2.8 {INR} [facility] Comment on above: Critical Value > 4.0 Whole blood prothrombin time Ordered By: Carlos Cavazos on 08-17-2022 PT Coag (Bld) [Time] 29.6 s 11.7-14.9 [facility] - CoagulationOrde red By: Carlos Cavazos on 08-14-2022 INR Coag (Bld) [Relative time] 3.9 {INR} [facility] Comment on above: Critical Value > 4.0 Whole blood prothrombin time Ordered By: Carlos Cavazos on 08-14-2022 PT Coag (Bld) [Time] 40.6 s 11.7-14.9 [facility] - CoagulationOrde red By: Carlos Cavazos on 07-31-2022 INR Coag (Bld) [Relative time] 2.5 {INR} [facility] Comment on above: Critical Value > 4.0 Whole blood prothrombin time Ordered By: Carlos Cavazos on 07-31-2022 PT Coag (Bld) [Time] 26.8 s 11.7-14.9 [facility] INR in Blood by Coagulation assayOrdered By: Carlos Cavazos on 07-24-2022 INR Coag (Bld) [Relative time] 2.3 {INR} [facility] - CoagulationOrde red By: Carlos Cavazos on 07-24-2022 PT Coag (PPP) [Time] 24.7 s 11.7-14.9 [facility] - CoagulationOrde red By: Carlos Cavazos on 07-20-2022 INR Coag (Bld) [Relative time] 1.9 {INR} [facility] Comment on above: Critical Value > 4.0 Whole blood prothrombin time Ordered By: Carlos Cavazos on 07-20-2022 PT Coag (Bld) [Time] 20.6 s 11.7-14.9 [facility] - CoagulationOrde red By: Carlos Cavazos on 07-17-2022 INR Coag (Bld) [Relative time] 1.3 {INR} [facility] Comment on above: Critical Value > 4.0 Whole blood prothrombin time Ordered By: Carlos Cavazos on 07-17-2022 PT Coag (Bld) [Time] 15.9 s 11.7-14.9 [facility] Basophil percentageOrdered B y: Carlos Cavazos on 07-11-2022 Chloride [Moles/Vol] 105 mmol/L 98-107 [facility] Glucose [Mass/Vol] 97 mg/dL 74-106 [facility] Potassium [Moles/Vol] 3.9 mmol/L 3.5-5.1 [facility] Sodium [Moles/Vol] 140 mmol/L 136-145 [facility] WBC (Bld) [#/Vol] 9.4 10*3/uL 4.4-11.0 [facility] Blood erythrocytes count (nu mber/volume)Ordered By: Carlos Cavazos on 07-11-2022 RBC (Bld) [#/Vol] 4.66 10*6/uL 4.6-6.2 [facility] Blood hemoglobin measurement (mass/volume)Ordered By: Carlos Cavazos on 07-11-2022 Hemoglobin (Bld) [Mass/Vol] 12.0 g/dL 13.0-16.5 [facility] Blood platelet mean volumeOr dered By: Carlos Cavazos on 07-11-2022 Platelet mean volume (Bld) [Entitic vol] 10.4 fL 6.2-12.0 [facility] Determination of erythrocyte mean corpuscular volume (MCV)Ordered By: Carlos Cavazos on 07-11-2022 MCV (RBC) [Entitic vol] 83.7 fL 80-94 [facility] Hematocrit Auto (Bld) [Volum e fraction]Ordered By: Carlos Cavazos on 07-11-2022 Hematocrit (Bld) [Volume fraction] 39.0 % 40-54 [facility] - Chemistry and C hemistry - challengeOrdered By: Carlos Cavazos on 07-11-2022 CO2 [Moles/Vol] 28.0 mmol/L 21.0-32.0 [facility] Urea nitrogen/Creatinine [Mass ratio] 23.0 mg/mg 10-20 [facility] - Hematology and Cell countsOrdered By: Carlos Cavazos on 07-11-2022 Erythrocyte distribution width (RBC) [Entitic vol] 51.0 fL 35.1-43.9 [facility] Erythrocyte distribution width (RBC) [Ratio] 16.8 % 11.6-14.6 [facility] MCH (RBC) [Entitic mass] 25.8 pg 27.0-32.0 [facility] MCHC Auto (RBC) [Mass/Vol]Or dered By: Carlos Cavazos on 07-11-2022 MCHC (RBC) [Mass/Vol] 30.8 g/dL 32-36 [facility] No Panel InformationOrdered By: Carlos Cavazos on 07-11-2022 Estimated GFR (MDRD) Amer 126 mL/min >60 [facility] Comment on above: GFR Calc Estimated GFR (MDRD) Non-Af Amer 104 mL/min >60 [facility] Comment on above: Non- GFR Calc Platelets bldOrdered By: Ted Cavazos on 07-11-2022 Platelets (Bld) [#/Vol] 291 10*3/uL 150-450 [facility] Serum or plasma calcium oral urement (mass/volume)Ordered By: Carlos Cavazos on 07-11-2022 Calcium [Mass/Vol] 9.2 mg/dL 8.5-10.1 [facility] Serum or plasma creatinine m easurement (mass/volume)Ordered By: Carlos Cavazos on 07-11-2022 Creatinine [Mass/Vol] 0.78 mg/dL 0.70-1.30 [facility] Comment on above: The validity of the calculated GFR & GFRAA in patients over 70 years has not been determined. Clinical correlation is essential. Serum or plasma urea nitroge n measurement (mass/volume)Ordered By: Carlos Cavazos on 07-11-2022 Urea nitrogen [Mass/Vol] 18 mg/dL 7-18 [facility] Thin prep Papanicolaou smear with manual screeningOrdered By: Carlos Cavazos on 07-11-2022 Thin prep Papanicolaou smear with manual screening 7 5-15 [facility] Laboratory - CoagulationOrde red By: Carlos Cavazos on 07-10-2022 INR Coag (Bld) [Relative time] 1.8 {INR} [facility] Comment on above: Critical Value > 4.0 Whole blood prothrombin time Ordered By: Carlos Cavazos on 07-10-2022 PT Coag (Bld) [Time] 21.0 s 11.7-14.9 [facility] Laboratory - CoagulationOrde red By: Carlos Cavazos on 07-03-2022 INR Coag (Bld) [Relative time] 1.9 {INR} [facility] Comment on above: Critical Value > 4.0 Whole blood prothrombin time Ordered By: Carlos Cavazos on 07-03-2022 PT Coag (Bld) [Time] 22.7 s 11.7-14.9 [facility] INR in Blood by Coagulation assayOrdered By: Carlos Cavazos on 06-27-2022 INR Coag (Bld) [Relative time] 2.9 {INR} [facility] Laboratory - CoagulationOrde red By: Carlos Cavazos on 06-27-2022 PT Coag (PPP) [Time] 29.9 s 11.7-14.9 [facility] Laboratory - CoagulationOrde red By: Carlos Cavazos on 06-13-2022 INR Coag (Bld) [Relative time] 2.1 {INR} [facility] Comment on above: Critical Value > 4.0 Whole blood prothrombin time Ordered By: Carlos Cavazos on 06-13-2022 PT Coag (Bld) [Time] 24.4 s 11.7-14.9 [facility] Laboratory - CoagulationOrde red By: Carlos Cavazos on 06-06-2022 INR Coag (Bld) [Relative time] 1.5 {INR} [facility] Comment on above: Critical Value > 4.0 Whole blood prothrombin time Ordered By: Carlos Cavaozs on 06-06-2022 PT Coag (Bld) [Time] 18.4 s 11.7-14.9 [facility] Basophil percentageOrdered B y: Carlos Cavazos on 05-30-2022 Chloride [Moles/Vol] 105 mmol/L 98-107 [facility] Glucose [Mass/Vol] 95 mg/dL 74-106 [facility] Potassium [Moles/Vol] 3.9 mmol/L 3.5-5.1 [facility] Sodium [Moles/Vol] 140 mmol/L 136-145 [facility] WBC (Bld) [#/Vol] 7.6 10*3/uL 4.4-11.0 [facility] Blood erythrocytes count (nu mber/volume)Ordered By: Carlos Cavazos on 05-30-2022 RBC (Bld) [#/Vol] 4.79 10*6/uL 4.6-6.2 [facility] Blood hemoglobin measurement (mass/volume)Ordered By: Carlos Cavazos on 05-30-2022 Hemoglobin (Bld) [Mass/Vol] 12.1 g/dL 13.0-16.5 [facility] Blood platelet mean volumeOr dered By: Carlos Cavazos on 05-30-2022 Platelet mean volume (Bld) [Entitic vol] 10.4 fL 6.2-12.0 [facility] Determination of erythrocyte mean corpuscular volume (MCV)Ordered By: Carlos Cavazos on 05-30-2022 MCV (RBC) [Entitic vol] 82.5 fL 80-94 [facility] Hematocrit Auto (Bld) [Volum e fraction]Ordered By: Carlos Cavazos on 05-30-2022 Hematocrit (Bld) [Volume fraction] 39.5 % 40-54 [facility] INR in Blood by Coagulation assayOrdered By: Carlos Cavazos on 05-30-2022 INR Coag (Bld) [Relative time] 1.9 {INR} [facility] Laboratory - Chemistry and C hemistry - challengeOrdered By: Carlos Cavazos on 05-30-2022 CO2 [Moles/Vol] 27.0 mmol/L 21.0-32.0 [facility] Urea nitrogen/Creatinine [Mass ratio] 21.4 mg/mg 10-20 [facility] Laboratory - CoagulationOrde red By: Carlos Cavazos on 05-30-2022 PT Coag (PPP) [Time] 21.6 s 11.7-14.9 [facility] Laboratory - Hematology and Cell countsOrdered By: Carlos Cavazos on 05-30-2022 Erythrocyte distribution width (RBC) [Entitic vol] 48.8 fL 35.1-43.9 [facility] Erythrocyte distribution width (RBC) [Ratio] 16.2 % 11.6-14.6 [facility] MCH (RBC) [Entitic mass] 25.3 pg 27.0-[facility].0 [facility] [Mass/Vol]Or dered By: Carlos Cavazos on 05-30-2022 MCHC (RBC) [Mass/Vol] 30.6 g/dL 32-36 [facility] No Panel InformationOrdered By: Carlos Cavazos on 05-30-2022 Estimated GFR (MDRD) Amer 133 mL/min >60 [facility] Comment on above: GFR Calc Estimated GFR (MDRD) Non-Af Amer 110 mL/min >60 [facility] Comment on above: Non- GFR Calc Platelets bldOrdered By: Ted Cavazos on 05-30-2022 Platelets (Bld) [#/Vol] 308 10*3/uL 150-450 [facility] Serum or plasma calcium oral urement (mass/volume)Ordered By: Carlos Cavazos on 05-30-2022 Calcium [Mass/Vol] 9.1 mg/dL 8.5-10.1 [facility] Serum or plasma creatinine m easurement (mass/volume)Ordered By: Carlos Cavazos on 05-30-2022 Creatinine [Mass/Vol] 0.75 mg/dL 0.70-1.30 [facility] Comment on above: The validity of the calculated GFR & GFRAA in patients over 70 years has not been determined. Clinical correlation is essential. Serum or plasma urea nitroge n measurement (mass/volume)Ordered By: Carlos Cavazos on 05-30-2022 Urea nitrogen [Mass/Vol] 16 mg/dL 7-18 [facility] Thin prep Papanicolaou smear with manual screeningOrdered By: Carlos Cavazos on 05-30-2022 Thin prep Papanicolaou smear with manual screening 8 5-15 [facility] Laboratory - CoagulationOrde red By: Carlos Cavazos on 05-16-2022 INR Coag (Bld) [Relative time] 2.6 {INR} [facility] Comment on above: Critical Value > 4.0 Whole blood prothrombin time Ordered By: Carlos Cavazos on 05-16-2022 PT Coag (Bld) [Time] 29.9 s 11.7-14.[address] [facility] Laboratory - CoagulationOrde red By: Carlos Cavazos on 05-02-2022 INR Coag (Bld) [Relative time] 2.0 {INR} [facility] Comment on above: Critical Value > 4.0 Whole blood prothrombin time Ordered By: Carlos Cavazos on 05-02-2022 PT Coag (Bld) [Time] 23.2 s 11.7-14.9 [facility] Laboratory - CoagulationOrde red By: Carlos Cavazos on 04-27-2022 INR Coag (Bld) [Relative time] 2.7 {INR} [facility] Comment on above: Critical Value > 4.0 Whole blood prothrombin time Ordered By: Carlos Cavazos on 04-27-2022 PT Coag (Bld) [Time] 31.1 s 11.7-14.9 [facility] Laboratory - CoagulationOrde red By: Carlos Cavazos on 04-26-2022 INR Coag (Bld) [Relative time] 2.8 {INR} [facility] Comment on above: Critical Value > 4.0 Whole blood prothrombin time Ordered By: Carlos Cavazos on 04-26-2022 PT Coag (Bld) [Time] 32.6 s 11.7-14.9 [facility] Laboratory - CoagulationOrde red By: Carlos Cavazos on 04-11-2022 INR Coag (Bld) [Relative time] 2.9 {INR} [facility] Comment on above: Critical Value > 4.0 Whole blood prothrombin time Ordered By: Carlos Cavazos on 04-11-2022 PT Coag (Bld) [Time] 32.8 s 11.7-14.9 [facility] Laboratory - CoagulationOrde red By: Carlos Cavazos on 03-28-2022 INR Coag (Bld) [Relative time] 2.1 {INR} [facility] Comment on above: Critical Value > 4.0 Whole blood prothrombin time Ordered By: Carlos Cavazos on 03-28-2022 PT Coag (Bld) [Time] 24.8 s 11.7-14.9 [facility] Laboratory - CoagulationOrde red By: Carlos Cavazos on 03-23-2022 INR Coag (Bld) [Relative time] 1.7 {INR} [facility] Comment on above: Critical Value > 4.0 Whole blood prothrombin time Ordered By: Carlos Cavazos on 03-23-2022 PT Coag (Bld) [Time] 20.9 s 11.7-14.9 [facility] Laboratory - CoagulationOrde red By: Carlos Cavazos on 03-16-2022 INR Coag (Bld) [Relative time] 1.7 {INR} [facility] Comment on above: Critical Value > 4.0 Whole blood prothrombin time Ordered By: Carlos Cavazos on 03-16-2022 PT Coag (Bld) [Time] 19.9 s 11.7-14.9 [facility] Laboratory - CoagulationOrde red By: Carlos Cavazos on 03-09-2022 INR Coag (Bld) [Relative time] 1.8 {INR} [facility] Comment on above: Critical Value > 4.0 Whole blood prothrombin time Ordered By: Carlos Cavazos on 03-09-2022 PT Coag (Bld) [Time] 21.9 s 11.7-14.9 [facility] Laboratory - CoagulationOrde red By: Carlos Cavazos on 03-06-2022 INR Coag (Bld) [Relative time] 1.7 {INR} [facility] Comment on above: Critical Value > 4.0 Whole blood prothrombin time Ordered By: Carlos Cavazos on 03-06-2022 PT Coag (Bld) [Time] 20.0 s 11.7-14.9 [facility] CBC with Auto Differentialon 03-02-2022 Absolute [...] 10.7 10*3/uL [facility] Test Performed by [facility], [address] [place] [address] HEAD WO CONTRASTon 2021 Patient Name: ANDREW SIFUENTES Computed Tomography ACCESSION EXAM DATE/TIME PROCEDURE ORDERING PROVIDER [id number] 03/02/2022 13:[address] Head or Brain w/o [id number] -LANETTE MUNGUIA Contrast CPT code 65960 Reason For Exam (CT Head or Brain [...] tubes (parent active on the left for NURSING COORDINATOR shunting and disconnected on the right). 2. No definite evidence of acute infarction (MRI more sensitive), mass lesion, nor hemorrhage. Report Dictated on --- Final --- Dictated: 03/02/2022 1:35 pm Dictating Physician: MD GUTIERREZ WILLIAM Signed Date and Time: 03/02/2022 1:39 pm Signed by: MD GUTIERREZ WILLIAM Transcribed Date and Time: 03/02/2022 1:35 [facility] Anant Gutierrez MD - 03/02/2022 Patient Name[id number] Tomography ACCESSION EXAM DATE/TIME PROCEDURE ORDERING PROVIDER [id number] 03/02/2022 13:[address] Head or Brain w/o [id number] -EZRA LANETTE Contrast CPT code 47851 Reason For Exam (CT Head or Brain [...] tubes (parent active on the left for NURSING COORDINATOR shunting and disconnected on the right). 2. [...] Tomography ACCESSION EXAM DATE/TIME PROCEDURE ORDERING PROVIDER [id number] 03/02/2022 13:[address] Head or Brain w/o [id number] -LANETTE MUNGUIA Contrast CPT code 25308 Reason For Exam (CT Head or Brain [...] tubes (parent active on the left for NURSING COORDINATOR shunting and disconnected on the right). 2. No definite evidence of acute infarction (MRI more sensitive), mass lesion, nor hemorrhage. Report Dictated on Final Dictated: 03/02/2022 1:35 pm Dictating Physician: MD GUTIERREZ WILLIAM Signed Date and Time: 03/02/2022 1:39 pm Signed by: MD GUTIERREZ WILLIAM Transcribed Date and Time: 03/02/2022 1:35 Normal [facility] Comp Metabolic Panelon 03-02 Calcium [Mass/Vol] 9.1 mg/dL Normal 8.4-10.4 [facility] Comment on above: Performed By: #### H TIERA PT, CMP3 ####[id number] [place], [place] ALP [Catalytic activity/Vol] 128 U/L High 38-126 [facility] Comment on above: Performed By: #### H TIERA PT, CMP3 ####[id number] [place], [place] ALT [Catalytic activity/Vol] 12 U/L Normal 0-49 [facility] Comment on above: Result Comment: The ALT test is performed by an updated assay method. Please note that the reference intervals have been changed and are now sex specific. Performed By: #### H EMDF PT, CMP3 ####[id number] [place], [place] Anion gap [Moles/Vol] 7 mmol/L Normal 3-13 [facility] Comment on above: Performed By: #### H EMDF PT, CMP3 ####[id number] [place], [place] AST [Catalytic activity/Vol] 24 U/L Normal 15-46 [facility] Comment on above: Performed By: #### H CHRISTEL MOTT, CMP3 ####[address] [place], [place] Bilirubin [Mass/Vol] 0.4 mg/dL Normal 0.2-1.3 [facility] Comment on above: Performed By: #### H CHRISTEL MOTT, CMP3 ####[address] [place], [place] CO2 [Moles/Vol] 27 mmol/L Normal 22-30 [facility] Comment on above: Performed By: #### H CHRISTEL MOTT CMP3 ####[address] [place], [place] Glucose [Mass/Vol] 109 mg/dL High 70-100 [facility] Comment on above: Performed By: #### H CHRISTEL MOTT, CMP3 ####[address] [place], [place] Protein [Mass/Vol] 8.1 g/dL Normal 6.3-8.2 [facility] Comment on above: Performed By: #### H CHRISTEL MOTT, CMP3 ####[address] [address] [place], [place] Urea nitrogen [Mass/Vol] 22 mg/dL High 7-17 [facility] Comment on above: Performed By: #### H CHRISTEL MOTT, CMP3 ####[address] [place], [place] Creatinine [Mass/Vol] 0.63 mg/dL Normal 0.52-1.25 [facility] Comment on above: Performed By: #### H CHRISTEL MOTT, CMP3 ####[address] [place], [place] eGFR OTHER > 90.0 Normal >60 [facility] Comment on above: Result Comment: KDIG [...] #### H CHRISTEL MOTT CMP3 ####[address] [place] [address] GFR/1.73 sq M.predicted among blacks MDRD (S/P/Bld) [Vol rate/Area] mL/min/{1.73_m2} Normal >60 [facility] Comment on above: Performed By: #### H CHRISTEL MOTT CMP3 ####[address] [address] Albumin [Mass/Vol] 4.1 g/dL Normal 3.5-5.0 [facility] Comment on above: Performed By: #### H CHRISTEL MOTT CMP3 ####[address] [address] Chloride [Moles/Vol] 106 mmol/L Normal 98-107 [facility] Comment on above: Performed By: #### H CHRISTEL MOTT CMP3 ####[address] [address] Potassium [Moles/Vol] 3.7 mmol/L Normal 3.5-5.1 [facility] Comment on above: Performed By: #### H CHRISTEL MOTT CMP3 ####[address] [place] [address] Sodium [Moles/Vol] 140 mmol/L Normal 135-145 [facility] Comment on above: Performed By: #### H EMDF, PT, CMP3 ####[facility] [place] [address] Comprehensive Metabolic Pane [facility] 03-02-2022 Albumin [Mass/Vol] 4.1 g/dL 3.5 - [...] 17 mg/dL [facility] Test Performed by [facility], [address] [place] [id number] [facility] ED Provider Noteon 2 ED Provider Note [facility] EM[facility]GENC[facility] EMERGENCY DEPARTMENT ENCOUNTER Pt Name: Andrew Sifuentes Birthdate 1950 Date of evaluation: 03/02/2022 Provider: Lanette Munguia DO CHIEF COMPLAINT Chief Complaint Patient presents with Fall Patient had unwitnessed fall at [facility] landed on butt. Is on thinners, denies LOC, denies head injury has no complaints at this time HISTORY OF PRESENT ILLNESS (Location/Symptom, Timing/Onset, Context/Setting, Quality, Duration, Modifying Factors, Severity) Note limiting factors. I wore a N-95 mask for the entirety of this encounter. Andrew Sifuentes is a 71 y.o. male medical history of hydrocephalus status post NURSING COORDINATOR shunt, history of DVT on Coumadin who presents to the emergency department [facility] for [facility] following mechanical fall. Patient rolled [...] Hemorrhoids Hydrocephalus, adult (HCC) Kidney stone Neuropathy NURSING COORDINATOR (ventriculoperitoneal) shunt status SURGICAL HISTORY Past Surgical [...] CONTRAST R (more content not included)... Normal [facility] Hemogram w/ Autodiffon 03-02 Abs Baso Cnt 0.2 10*3/uL Normal 0.0-0.2 [facility] Comment on above: Performed By: #### H EMDF PT, CMP3 ####[facility] [place] [address] Abs Neutrophile Cnt 10.7 10*3/uL High 1.8-7.0 [facility] Comment on above: Performed By: #### H EMDF, PT, CMP3 ####[facility] [place] [address] Basophils/100 WBC (Bld) 1.1 % Normal 0.0-2.0 [facility] Comment on above: Performed By: #### H EMDF, PT, CMP3 ####[facility] [place] [address] Eosinophils (Bld) [#/Vol] 0.1 10*3/uL Normal 0.0-0.5 [facility] Comment on above: Performed By: #### H EMDHeydi PT, CMP3 ####[address] [address] Eosinophils/100 WBC (Bld) 0.5 % Low 1.0-6.0 [facility] Comment on above: Performed By: #### H EMDF PT, CMP3 ####[address] [address] Granulocytes/100 WBC (Bld) 73.9 % Normal 40.0-80.0 [facility] Comment on above: Performed By: #### H TIERA PT, CMP3 ####[address] [address] Lymphocytes (Bld) [#/Vol] 3.0 10*3/uL Normal 1.0-4.3 [facility] Comment on above: Performed By: #### H TIERA PT, CMP3 ####[address] [address] Lymphocytes/100 WBC (Bld) 20.6 % Normal 20.0-40.0 [facility] Comment on above: Performed By: #### H EMDHeydi PT, CMP3 ####[address] [address] Monocytes (Bld) [#/Vol] 0.6 10*3/uL Normal 0.0-0.8 [facility] Comment on above: Performed By: #### H EMDF PT, CMP3 ####[address] [address] Monocytes/100 WBC (Bld) 3.9 % Normal 2.0-10.0 [facility] Comment on above: Performed By: #### H EMDF PT, CMP3 ####[address] [address] Platelet mean volume (Bld) [Entitic vol] 8.5 fL Normal 7.4-12.4 [facility] Comment on above: Result Comment: MPV is a calculated measurement using platelet volume ratio. Performed By: #### H EMDHeydi PT, CMP3 ####[address] Platelets (Bld) [#/Vol] 411 10*3/uL Normal 140-440 [facility] Comment on above: Performed By: #### H EMDHeydi PT, CMP3 ####[address] [place], [place] Erythrocyte distribution width (RBC) [Ratio] 17.0 % High 11.5-14.5 [facility] Comment on above: Performed By: #### H TIERA PT, CMP3 ####[address] Hematocrit (Bld) [Volume fraction] 37.4 % Low 40.0-52.0 [facility] Comment on above: Performed By: #### H TIERA PT, CMP3 ####[address] Hemoglobin (Bld) [Mass/Vol] 12.1 g/dL Low 13.0-18.0 [facility] Comment on above: Performed By: #### H TIERA PT, CMP3 ####[address] [place], [place] MCH (RBC) [Entitic mass] 26.2 pg Normal 26.0-34.0 [facility] Comment on above: Performed By: #### H EMDHeydi PT, CMP3 ####[id number] [place], [place] MCHC 32.3 % Normal 32.0-36.0 [facility] Comment on above: Performed By: #### H TIERA PT, CMP3 ####[address] MCV (RBC) [Entitic vol] 81.1 fL Normal 80.0-98.0 [facility] Comment on above: Performed By: #### H EMDHeydi PT, CMP3 ####[address] RBC (Bld) [#/Vol] 4.61 10*6/uL Normal 4.40-5.90 [facility] Comment on above: Performed By: #### H BIMALF PT, CMP3 ####[address] [place], [place] WBC (Bld) [#/Vol] 14.5 10*3/uL High 3.6-10.7 [facility] Comment on above: Performed By: #### H BIMALF PT, CMP3 ####[address] [place], [place] Prothrombin Timeon INR 1.9 High 0.9-1.1 [facility] Comment on above: Result Comment: Harry [...] By: #### H TIERA PT, CMP3 ####[address] PT Coag (PPP) [Time] 18.9 s High 9.0-12.0 [facility] Comment on above: Result Comment: . Performed By: #### H TIERA PT, CMP3 ####[address] [place], [place] Protime-INRon 03-02-2022 INR Coag (Bld) [Relative [...] s High 9.0 - 12.0 s [facility] Comment on above: . Test Performed by [facility], [address] [place] [id number] [place] [address] LAB [facility] Laboratory - CoagulationOrde red By: Carlos Cavazos on 02-20-2022 INR Coag (Bld) [Relative time] 2.6 {INR} [facility] Comment on above: Critical Value > 4.0 Whole blood prothrombin time Ordered By: Carlos Cavazos on 02-20-2022 PT Coag (Bld) [Time] 30.1 s 11.7-14.9 [facility] Laboratory - CoagulationOrde red By: Carlos Cavazos on 02-13-2022 INR Coag (Bld) [Relative time] 2.3 {INR} [facility] Comment on above: Critical Value > 4.0 Whole blood prothrombin time Ordered By: Carlos Cavazos on 02-13-2022 PT Coag (Bld) [Time] 26.7 s 11.7-14.9 [facility] Laboratory - CoagulationOrde red By: Carlos Cavazos on 02-06-2022 INR Coag (Bld) [Relative time] 2.3 {INR} [facility] Comment on above: Critical Value > 4.0 Whole blood prothrombin time Ordered By: Carlos Cavazos on 02-06-2022 PT Coag (Bld) [Time] 26.6 s 11.7-14.9 [facility] Laboratory - Coagulationon 0 01-30-2022 INR Coag (Bld) [Relative time] 1.7 {INR} [facility] Work Phone: Comment on above: Critical Value > 4.0 Whole blood prothrombin time on 01-30-2022 PT Coag (Bld) [Time] 20.1 s 11.7-14.9 [facility] Work Phone: Laboratory - Coagulationon 0 01-26-2022 INR Coag (Bld) [Relative time] 1.8 {INR} [facility] Work Phone: Comment on above: Critical Value > 4.0 Whole blood prothrombin time on 01-26-2022 PT Coag (Bld) [Time] 21.8 s 11.7-14.9 [facility] Work Phone: Laboratory - Coagulationon 0 01-19-2022 INR Coag (Bld) [Relative time] 2.2 {INR} [facility] Work Phone: Comment on above: Critical Value > 4.0 Whole blood prothrombin time on 01-19-2022 PT Coag (Bld) [Time] 25.7 s 11.7-14.9 [facility] Work Phone: INR in Blood by Coagulation assayon 01-10-2022 INR Coag (Bld) [Relative time] 1.8 {INR} [facility] Work Phone: Laboratory - Coagulationon 0 01-10-2022 PT Coag (PPP) [Time] 20.9 s 11.7-14.9 [facility] Work Phone: Basophil percentageon 2021 Chloride [Moles/Vol] 107 mmol/L 98-107 [facility] Work Phone: Glucose [Mass/Vol] 82 mg/dL 74-106 [facility] Work Phone: Potassium [Moles/Vol] 3.4 mmol/L 3.5-5.1 [facility] Work Phone: Sodium [Moles/Vol] 143 mmol/L 136-145 [facility] Work Phone: WBC (Bld) [#/Vol] 10.4 10*3/uL 4.4-11.0 [facility] Work Phone: Blood erythrocytes count (nu mber/volume)on 01-05-2022 RBC (Bld) [#/Vol] 4.27 10*6/uL 4.6-6.2 [facility] Work Phone: Blood hemoglobin measurement (mass/volume)on 01-05-2022 Hemoglobin (Bld) [Mass/Vol] 11.2 g/dL 13.0-16.5 [facility] Work Phone: Blood platelet mean volumeon 01-05-2022 Platelet mean volume (Bld) [Entitic vol] 10.3 fL 6.2-12.0 [facility] Work Phone: Determination of erythrocyte mean corpuscular volume (MCV)on 01-05-2022 MCV (RBC) [Entitic vol] 84.8 fL 80-94 [facility] Work Phone: Hematocrit Auto (Bld) [Volum e fraction]on 01-05-2022 Hematocrit (Bld) [Volume fraction] 36.2 % 40-54 [facility] Work Phone: Laboratory - Chemistry and C hemistry - challengeon 01-05-2022 CO2 [Moles/Vol] 28.0 mmol/L 21.0-32.0 [facility] Work Phone: Urea nitrogen/Creatinine [Mass ratio] 20.0 mg/mg 10-20 [facility] Work Phone: Laboratory - Hematology and Cell countson 01-05-2022 Erythrocyte distribution width (RBC) [Entitic vol] 51.8 fL 35.1-43.9 [facility] Work Phone: Erythrocyte distribution width (RBC) [Ratio] 16.8 % 11.6-14.6 [facility] Work Phone: MCH (RBC) [Entitic mass] 26.2 pg 27.0-32.0 [facility] Work Phone: MCHC Auto (RBC) [Mass/Vol]on 01-05-2022 MCHC (RBC) [Mass/Vol] 30.9 g/dL 32-36 [facility] Work Phone: No Panel Informationon 01-05 Estimated GFR (MDRD) Amer 133 mL/min >60 [facility] Work Phone: Comment on above: GFR Calc Estimated GFR (MDRD) Non-Af Amer 110 mL/min >60 [facility] Work Phone: Comment on above: Non- GFR Calc Platelets bldon 01-05-2022 Platelets (Bld) [#/Vol] 373 10*3/uL 150-450 [facility] Work Phone: Serum or plasma calcium oral urement (mass/volume)on 01-05-2022 Calcium [Mass/Vol] 8.8 mg/dL 8.5-10.1 [facility] Work Phone: Serum or plasma creatinine m easurement (mass/volume)on 01-05-2022 Creatinine [Mass/Vol] 0.75 mg/dL 0.70-1.30 [facility] Work Phone: Comment on above: The validity of the calculated GFR & GFRAA in patients over 70 years has not been determined. Clinical correlation is essential. Serum or plasma urea nitroge n measurement (mass/volume)on 01-05-2022 Urea nitrogen [Mass/Vol] 15 mg/dL 7-18 [facility] Work Phone: Thin prep Papanicolaou smear with manual screeningon 01-05-2022 Thin prep Papanicolaou smear with manual screening 8 5-15 [facility] Work Phone: Laboratory - Coagulationon 0 12-30-2021 INR Coag (Bld) [Relative time] 2.0 {INR} [facility] Work Phone: Comment on above: Critical Value > 4.0 Whole blood prothrombin time on 12-30-2021 PT Coag (Bld) [Time] 23.7 s 11.7-14.9 [facility] Work Phone: Basophil percentageon 2021 Chloride [Moles/Vol] 106 mmol/L 98-107 [facility] Work Phone: Glucose [Mass/Vol] 91 mg/dL 74-106 [facility] Work Phone: Potassium [Moles/Vol] 3.4 mmol/L 3.5-5.1 [facility] Work Phone: Sodium [Moles/Vol] 141 mmol/L 136-145 [facility] Work Phone: WBC (Bld) [#/Vol] 10.2 10*3/uL 4.4-11.0 [facility] Work Phone: Blood erythrocytes count (nu mber/volume)on 12-28-2021 RBC (Bld) [#/Vol] 4.22 10*6/uL 4.6-6.2 [facility] Work Phone: Blood hemoglobin measurement (mass/volume)on 12-28-2021 Hemoglobin (Bld) [Mass/Vol] 11.2 g/dL 13.0-16.5 [facility] Work Phone: Blood platelet mean volumeon 12-28-2021 Platelet mean volume (Bld) [Entitic vol] 10.1 fL 6.2-12.0 [facility] Work Phone: Determination of erythrocyte mean corpuscular volume (MCV)on 12-28-2021 MCV (RBC) [Entitic vol] 82.7 fL 80-94 [facility] Work Phone: Hematocrit Auto (Bld) [Volum e fraction]on 12-28-2021 Hematocrit (Bld) [Volume fraction] 34.9 % 40-54 [facility] Work Phone: Laboratory - Chemistry and C hemistry - challengeon 12-28-2021 CO2 [Moles/Vol] 30.0 mmol/L 21.0-32.0 [facility] Work Phone: Urea nitrogen/Creatinine [Mass ratio] 33.7 mg/mg 10-20 [facility] Work Phone: Laboratory - Hematology and Cell countson 12-28-2021 Erythrocyte distribution width (RBC) [Entitic vol] 49.1 fL 35.1-43.9 [facility] Work Phone: Erythrocyte distribution width (RBC) [Ratio] 16.5 % 11.6-14.6 [facility] Work Phone: MCH (RBC) [Entitic mass] 26.5 pg 27.0-32.0 [facility] Work Phone: MCHC Auto (RBC) [Mass/Vol]on 12-28-2021 MCHC (RBC) [Mass/Vol] 32.1 g/dL 32-36 [facility] Work Phone: No Panel Informationon 12-28 Estimated GFR (MDRD) Amer 174 mL/min >60 [facility] Work Phone: Comment on above: GFR Calc Estimated GFR (MDRD) Non-Af Amer 143 mL/min >60 [facility] Work Phone: Comment on above: Non- GFR Calc Platelets bldon 12-28-2021 Platelets (Bld) [#/Vol] 339 10*3/uL 150-450 [facility] Work Phone: Serum or plasma calcium oral urement (mass/volume)on 12-28-2021 Calcium [Mass/Vol] 8.6 mg/dL 8.5-10.1 [facility] Work Phone: Serum or plasma creatinine m easurement (mass/volume)on 12-28-2021 Creatinine [Mass/Vol] 0.59 mg/dL 0.70-1.30 [facility] Work Phone: Comment on above: The validity of the calculated GFR & GFRAA in patients over 70 years has not been determined. Clinical correlation is essential. Serum or plasma urea nitroge n measurement (mass/volume)on 12-28-2021 Urea nitrogen [Mass/Vol] 20 mg/dL 7-18 [facility] Work Phone: Thin prep Papanicolaou smear with manual screeningon 12-28-2021 Thin prep Papanicolaou smear with manual screening 5 5-15 [facility] Work Phone: CULTURE BLOODon 12-27-2021 Microscopic examination of blood, culture CULTURE BLOOD --> Status: F No growth at 5 days. Normal [facility] Comment on above: Performed By: #### C /BLD #### [facility] [place] [facility] [address] [place] [address] Laboratory - Coagulationon 0 12-26-2021 INR Coag (Bld) [Relative time] 1.7 {INR} [facility] Work Phone: Comment on above: Critical Value > 4.0 Whole blood prothrombin time on 12-26-2021 PT Coag (Bld) [Time] 20.8 s 11.7-14.9 [facility] Work Phone: Basic Metabolic Panelon 12-05 Calcium [Mass/Vol] 8.8 mg/dL Normal 8.4-10.4 [facility] Comment on above: Performed By: #### C RP2, ESR, HEMDF, BMP3 ####[facility] [address] [place] Anion gap [Moles/Vol] 6 mmol/L Normal 3-13 [facility] Comment on above: Performed By: #### C RP2, ESR, HEMDF, BMP3 ####[employer] [address] [place] [address] [place] CO2 [Moles/Vol] 27 mmol/L Normal 22-30 [facility] Comment on above: Performed By: #### C RP2, ESR, HEMDF, BMP3 ####[facility] [address] [place] [address] [place] Glucose [Mass/Vol] 100 mg/dL Normal 70-100 [facility] Comment on above: Performed By: #### C RP2, ESR, HEMDF, BMP3 ####[employer] [place], [place] Urea nitrogen [Mass/Vol] 18 mg/dL High 7-17 [facility] Comment on above: Performed By: #### C RP2, ESR, HEMDF, BMP3 ####[email or web address] [place] [address] Creatinine [Mass/Vol] 0.73 mg/dL Normal 0.52-1.25 [facility] Comment on above: Performed By: #### C RP2, ESR, HEMDF, BMP3 ####[facility] [place] [id number] [place], [place] eGFR OTHER > 90.0 Normal >60 [facility] Comment on above: Result Comment: KDIG [...] By: #### C RP2, ESR, HEMDF, BMP3 ####[facility] [address] [place], [place] GFR/1.73 sq M.predicted among blacks MDRD (S/P/Bld) [Vol rate/Area] mL/min/{1.73_m2} Normal >60 [facility] Comment on above: Performed By: #### C RP2, ESR, HEMDF, BMP3 ####[facility] [address] [place], [place] Potassium [Moles/Vol] 3.7 mmol/L Normal 3.5-5.1 [facility] Comment on above: Performed By: #### C RP2, ESR, HEMDF, BMP3 ####[facility] [place] [id number] [place], [place] Chloride [Moles/Vol] 106 mmol/L Normal 98-107 [facility] Comment on above: Performed By: #### C RP2, ESR, HEMDF, BMP3 ####[facility] [place] [address] Sodium [Moles/Vol] 139 mmol/L Normal 135-145 [facility] Comment on above: Performed By: #### C RP2, ESR, HEMDF, BMP3 ####[facility] [place] [address] Anion gap [Moles/Vol] 6 mmol/L 3 - [...] [place] mL/min 60 - PIN[place] mL/min [place] [...] 2021 Basophil percentage 25-50 SEEN /hpf 0-5 [facility] Work Phone: Chloride [Moles/Vol] 106 mmol/L 98-[address] [facility] Work Phone: Glucose [Mass/Vol] 93 mg/dL 74-106 [facility] Work Phone: [phone] Potassium [Moles/Vol] 3.5 mmol/L 3.5-5.1 [facility] Work Phone: Sodium [Moles/Vol] 140 mmol/L 136-145 [facility] Work Phone: WBC (Bld) [#/Vol] 9.6 10*3/uL 4.4-11.[address] [facility] [facility] Work Phone: Bilirubin Test strip Ql (U)o n 12-22-2021 Bilirubin Ql (U) Negative Negative [facility] Work Phone: Blood erythrocytes count (nu mber/volume)on 12-22-2021 RBC (Bld) [#/Vol] 4.34 10*6/uL 4.6-6.2 [facility] Work Phone: Blood hemoglobin measurement (mass/volume)on 12-22-2021 Hemoglobin (Bld) [Mass/Vol] 11.5 g/dL 13.0-16.5 [facility] Work Phone: Blood platelet mean volumeon 12-22-2021 Platelet mean volume (Bld) [Entitic vol] 10.8 fL 6.2-12.0 [facility] Work Phone: C-Reactive Proteinon 022 CRP [Mass/Vol] 27.2 mg/L High 0.0-9.9 [email or web address] Comment on above: Result Comment: . Performed By: #### C RP2, ESR, HEMDF, BMP3 ####[employer] [address] [place] [address] CRP [Mass/Vol] 27.2 mg/L High 0 - 9.9 mg/L [facility] Comment on above: . CBC with Auto [...] 10.7 10*3/uL [facility] Test Performed by [facility], [address] [place] [address] [facility] COVID-19, Flu A/B, and RSV C omboon 12-22-2021 Influenza A by PCR Not detected [facility] A Influenza B by PCR Not detected [facility] A RSV PCR Not Detected. Expected Result: Not Detected _ Method: Real-time, RT-PCR This assay was developed by [employer] and distributed under an Emergency Use Authorization (EUA) granted by the FDA for the qualitative detection of nucleic acids from SARS-CoV-2, Influenza A, Influenza B, and Respiratory Syncytial Virus. Provider and patient fact sheets can be found at https://www.fda.gov/media /547318/download and https://www.fda.gov/media /952710/download. [facility] SARS-CoV-2 (COVID-19) RNA MEGAN+probe Ql (Unsp spec) Not detected [facility] Test Performed by [address] [address] [facility] CR Foot Complete 3+ Views Le fton 12-22-2021 CR Foot Complete 3+ Views Left Patient Name: ANDREW SIFUENTES Diagnostic Radiology ACCESSION EXAM DATE/TIME PROCEDURE ORDERING PROVIDER [id number] 12/22/2021 00:09 EDT CR Foot Complete 3+ SANDY HIDALGO, TRAVIS Views Left CPT code 20881 Reason For Exam (CR Foot Complete 3+ [...] Transcribed Date and Time: 12/22/2021 0:21 Normal [facility] Calcium oxalate crystals det ection in urine sediment by light microscopyon 12-22-2021 Calcium oxalate crystals LM Ql (Urine sed) 1+ /hpf [facility] Work Phone: Determination of erythrocyte mean corpuscular volume (MCV)on 12-22-2021 MCV (RBC) [Entitic vol] 84.3 fL 80-94 [facility] Work Phone: ED Provider Noteon 2 [...] 79.4 kg (175 lb), SpO2 96 %. Pkt-tzd-ollxcldtr in no acute distress. Alert and oriented [...] [employer] Sharon Olivia MD 12/22/21 0305 [facility] ED Provider Note [facility] EM[facility] EMERGENCY DEPARTMENT ENCOUNTER Pt Name: Andrew Sifuentes Birthdate 1950 Date of evaluation: 12/21/2021 Provider: SANIA Lou CHIEF COMPLAINT Chief Complaint Patient presents with Osteomyelitis Patient from [facility], facility did xrays on left lower leg [...] Hemorrhoids Hydrocephalus, adult (HCC) Kidney stone Neuropathy NURSING COORDINATOR (ventriculoperitoneal) shunt status SURGICAL HISTORY Past Surgical [...] Response: Confused Best Motor Response: Obeys commands [place] Coma Scale Score: 14 Patient symptoms are [...] soft. Tenderness: (more content not included)... Normal [facility] Hematocrit Auto (Bld) [Volum e fraction]on 12-22-2021 Hematocrit (Bld) [Volume fraction] 36.6 % 40-54 [facility] Work Phone: Hemogram w/ Autodiffon 12-22 Abs Baso Cnt 0.1 10*3/uL Normal 0.0-0.2 [facility] Comment on above: Performed By: #### C RP2, ESR, HEMDF, BMP3 ####[employer] [address] [place] [address] Abs Neutrophile Cnt 5.9 10*3/uL Normal 1.8-7.0 [facility] Comment on above: Performed By: #### C RP2, ESR, HEMDF, BMP3 ####[address] [address] Basophils/100 WBC (Bld) 0.7 % Normal 0.0-2.0 [facility] Comment on above: Performed By: #### C RP2, ESR, HEMDF, BMP3 ####[address] [address] Eosinophils (Bld) [#/Vol] 0.2 10*3/uL Normal 0.0-0.5 [facility] Comment on above: Performed By: #### C RP2, ESR, HEMDF, BMP3 ####[address] [address] Eosinophils/100 WBC (Bld) 2.3 % Normal 1.0-6.0 [facility] Comment on above: Performed By: #### C RP2, ESR, HEMDF, BMP3 ####[address] Erythrocyte distribution width (RBC) [Ratio] 17.5 % High 11.5-14.5 [facility] Comment on above: Performed By: #### C RP2, ESR, HEMDF, BMP3 ####[address] [address] Granulocytes/100 WBC (Bld) 57.8 % Normal 40.0-80.0 [facility] Comment on above: Performed By: #### C RP2, ESR, HEMDF, BMP3 ####[address] [address] Hematocrit (Bld) [Volume fraction] 33.3 % Low 40.0-52.0 [facility] Comment on above: Performed By: #### C RP2, ESR, HEMDF, BMP3 ####[address] [address] Hemoglobin (Bld) [Mass/Vol] 11.0 g/dL Low 13.0-18.0 [facility] Comment on above: Performed By: #### C RP2, ESR, HEMDF, BMP3 ####[address] Lymphocytes (Bld) [#/Vol] 3.3 10*3/uL Normal 1.0-4.3 [facility] Comment on above: Performed By: #### C RP2, ESR, HEMDF, BMP3 ####[address] Lymphocytes/100 WBC (Bld) 33.0 % Normal 20.0-40.0 [facility] Comment on above: Performed By: #### C RP2, ESR, HEMDF, BMP3 ####[address] MCH (RBC) [Entitic mass] 26.5 pg Normal 26.0-34.0 [facility] Comment on above: Performed By: #### C RP2, ESR, HEMDF, BMP3 ####[address] MCHC 33.1 % Normal 32.0-36.0 [facility] Comment on above: Performed By: #### C RP2, ESR, HEMDF, BMP3 ####[address] MCV (RBC) [Entitic vol] 80.2 fL Normal 80.0-98.0 [facility] Comment on above: Performed By: #### C RP2, ESR, HEMDF, BMP3 ####[address] Monocytes (Bld) [#/Vol] 0.6 10*3/uL Normal 0.0-0.8 [facility] Comment on above: Performed By: #### C RP2, ESR, HEMDF, BMP3 ####[address] Monocytes/100 WBC (Bld) 6.2 % Normal 2.0-10.0 [facility] Comment on above: Performed By: #### C RP2, ESR, HEMDF, BMP3 ####[facility] [address] [place], [place] Platelet mean volume (Bld) [Entitic vol] 8.0 fL Normal 7.4-12.4 [facility] Comment on above: Result Comment: MPV is a calculated measurement using platelet volume ratio. Performed By: #### C RP2, ESR, HEMDF, BMP3 ####[facility] [place] [id number] [place], [place] Platelets (Bld) [#/Vol] 368 10*3/uL Normal 140-440 [facility] Comment on above: Performed By: #### C RP2, ESR, HEMDF, BMP3 ####[facility] [place] [address] [place], [place] RBC (Bld) [#/Vol] 4.15 10*6/uL Low 4.40-5.90 [facility] Comment on above: Performed By: #### C RP2, ESR, HEMDF, BMP3 ####[facility] [place] [address] [place], [place] WBC (Bld) [#/Vol] 10.1 10*3/uL Normal 3.6-10.7 [facility] Comment on above: Performed By: #### C RP2, ESR, HEMDF, BMP3 ####[facility] [place] [id number] [place], [place] Ketones Test strip Ql (U)on 12-22-2021 Ketones Ql (U) Negative Negative [facility] Work Phone: Laboratory - Chemistry and C hemistry - challengeon 12-22-2021 CO2 [Moles/Vol] 27.0 mmol/L 21.0-32.0 [facility] Work Phone: Urea nitrogen/Creatinine [Mass ratio] 22.5 mg/mg 10-20 [facility] Work Phone: Laboratory - Hematology and Cell countson 12-22-2021 Erythrocyte distribution width (RBC) [Entitic vol] 49.1 fL 35.1-43.9 [facility] Work Phone: Erythrocyte distribution width (RBC) [Ratio] 16.1 % 11.6-14.6 [facility] Work Phone: MCH (RBC) [Entitic mass] 26.5 pg 27.0-32.0 [facility] Work Phone: MCHC Auto (RBC) [Mass/Vol]on 12-22-2021 MCHC (RBC) [Mass/Vol] 31.4 g/dL 32-36 [facility] Work Phone: Mucus LM Ql (Urine sed)on Mucus Ql (Urine sed) 0 SEEN /hpf [facility] Work Phone: Nitrite Test strip Ql (U)on 12-22-2021 Nitrite Ql (U) Positive Negative [facility] Work Phone: No Panel Informationon 12-22 Estimated GFR (MDRD) Amer 152 mL/min >60 [facility] Work Phone: Comment on above: GFR Calc Estimated GFR (MDRD) Non-Af Amer 125 mL/min >60 [facility] Work Phone: Comment on above: Non- GFR Calc Interpretation and review of laboratory results Abnormal [facility] Test Performed by [facility], [address] [place] [id number] [place] [address] LAB [facility] Platelets bldon 12-22-2021 Platelets (Bld) [#/Vol] 317 10*3/uL 150-450 [facility] Work Phone: Protein Test strip Ql (U)on 12-22-2021 Protein Ql (U) 30 mg/dl Negative [facility] Work Phone: SARS-CoV-2, Flu A/B and RSVo n 12-22-2021 SARS-CoV-2 (COVID-19) RNA MEGAN+probe Ql (Unsp spec) SARS-CoV-2 --> Status: F Not Detected. Flu A PCR --> Status: F Not Detected. Flu B PCR --> Status: F Not Detected. RSV PCR --> Status: F Not Detected. Expected Result: Not Detected _ Method: Real-time, RT-PCR This assay was developed by [employer] and distributed under an Emergency Use Authorization (EUA) granted by the FDA for the qualitative detection of nucleic acids from SARS-CoV-2, Influenza A, Influenza B, and Respiratory Syncytial Virus. Provider and patient fact sheets can be found at https://www.fda.gov/media /932794/download and https://www.fda.gov/media /733590/download. Expected Result: Not Detected _ Method: Real-time, RT-PCR This assay was developed by [employer] and distributed under an Emergency Use Authorization (EUA) granted by the FDA for the qualitative detection of nucleic acids from SARS-CoV-2, Influenza A, Influenza B, and Respiratory Syncytial Virus. Provider and patient fact sheets can be found at https://www.fda.gov/media /871730/download and https://www.fda.gov/media /300803/download. Normal [facility] Comment on above: Performed By: #### C VFLR ####[facility] [place] [address], [address] Sed Rateon 12-22-2021 Sed Rate 48 mm/h High 0-10 [facility] Comment on above: Performed By: #### C RP2, ESR, HEMDF, BMP3 ####[address] [place] [address] Sedimentation Rateon 022 Interpretation and review of laboratory results Abnormal [facility] Sed Rate 48 mm/h High 0 - 10 mm/h [facility] Test Performed by [facility], [address] [place] [address] [facility] Serum or plasma calcium oral urement (mass/volume)on 12-22-2021 Calcium [Mass/Vol] 8.6 mg/dL 8.5-10.1 [facility] Work Phone: Serum or plasma creatinine m easurement (mass/volume)on 12-22-2021 Creatinine [Mass/Vol] 0.67 mg/dL 0.70-1.30 [facility] Work Phone: Comment on above: The validity of the calculated GFR & GFRAA in patients over 70 years has not been determined. Clinical correlation is essential. Serum or plasma urea nitroge n measurement (mass/volume)on 12-22-2021 Urea nitrogen [Mass/Vol] 15 mg/dL -18 [facility] Work Phone: Squamous epithelial cells de tection in urine sediment by light microscopyon 12-22-2021 Epithelial cells.squamous LM Ql (Urine sed) 0-5 SEEN /hpf 0-5 [facility] Work Phone: Thin prep Papanicolaou smear with manual screeningon 12-22-2021 Thin prep Papanicolaou smear with manual screening 7 5-15 [facility] Work Phone: Urine blood detectionon 12-05 RBC Ql (U) 150 /ul Negative [facility] Work Phone: RBC Ql (U) 10-25 SEEN /hpf 0-5 [facility] Work Phone: Urine clarityon 12-22-2021 Clarity (U) Sl. Cloudy Clear [facility] Work Phone: Urine color determinationon 12-22-2021 Color (U) Yellow Yellow [facility] Work Phone: Urine glucose detectionon Glucose Ql (U) Normal mg/dl Normal [facility] Work Phone: Urine leukocyte esterase det ection by dipstickon 12-22-2021 Leukocyte esterase Test strip Ql (U) 500 /ul Negative [facility] Work Phone: Urine pHon 12-22-2021 pH (U) 6.0 [pH] 5.0 - 8.0 [facility] Work Phone: Urine sediment bacteria coun t by microscopy (number/high power field)on 12-22-2021 Bacteria LM.HPF (Urine sed) [#/Area] 2 /[HPF] None Seen [facility] Work Phone: Urine specific gravity measu rementon 12-22-2021 Specific gravity (U) [Rel density] 1.020 1.002-1.030 [facility] Work Phone: Urobilinogen Auto test strip Ql (U)on 12-22-2021 Urobilinogen Ql (U) Normal mg/dl Normal [facility] Work Phone: XR FOOT LEFT (MIN 3 VIEWS)on 12-22-2021 Patient Name: ANDREW SIFUENTES Diagnostic Radiology ACCESSION EXAM DATE/TIME PROCEDURE ORDERING PROVIDER [id number] 12/22/2021 00:09 EDT CR Foot Complete 3+ SANDY HIDALGO, TRAVIS Views Left CPT code 39729 Reason For Exam (CR Foot Complete 3+ [...] JEFFREY Transcribed Date and Time: 12/22/2021 0:21 [facility] Albert Solano MD - 12/22/2021 Patient Name: ANDREW SIFUENTES Diagnostic Radiology ACCESSION EXAM DATE/TIME PROCEDURE ORDERING PROVIDER [id number] 12/22/2021 00:09 EDT CR Foot Complete 3+ SANDY HIDALGO, TRAVIS Views Left CPT code 13034 Reason For Exam (CR Foot Complete 3+ [...] JEFFREY Transcribed Date and Time: 12/22/2021 0:21 [facility] Work Phone: Radiology Study observation (narrative) [facility] Work Phone: XR FOOT LEFT (MIN 3 VIEWS)Or dered By: Albert Solano on 12-22-2021 [facility] Work Phone: Basophil percentageon 2021 Chloride [Moles/Vol] 103 mmol/L 98-[address] [facility] Work Phone: Glucose [Mass/Vol] 92 mg/dL 74-106 [facility] Work Phone: Potassium [Moles/Vol] 3.5 mmol/L 3.5-5.1 [employer] [facility] Work Phone: Sodium [Moles/Vol] 138 mmol/L 136-145 [facility] Work Phone: WBC (Bld) [#/Vol] 11.2 10*3/uL 4.4-11.0 [facility] Work Phone: Blood erythrocytes count (nu mber/volume)on 12-19-2021 RBC (Bld) [#/Vol] 4.50 10*6/uL 4.6-6.2 [facility] Work Phone: Blood hemoglobin measurement (mass/volume)on 12-19-2021 Hemoglobin (Bld) [Mass/Vol] 12.2 g/dL 13.0-16.5 [facility] Work Phone: Blood platelet mean volumeon 12-19-2021 Platelet mean volume (Bld) [Entitic vol] 11.3 fL 6.2-12.0 [facility] Work Phone: Determination of erythrocyte mean corpuscular volume (MCV)on 12-19-2021 MCV (RBC) [Entitic vol] 85.6 fL 80-94 [facility] Work Phone: Hematocrit Auto (Bld) [Volum e fraction]on 12-19-2021 Hematocrit (Bld) [Volume fraction] 38.5 % 40-54 [facility] Work Phone: Laboratory - Chemistry and C hemistry - challengeon 12-19-2021 CO2 [Moles/Vol] 30.0 mmol/L 21.0-32.0 [facility] Work Phone: Urea nitrogen/Creatinine [Mass ratio] 27.1 mg/mg 10-20 [facility] Work Phone: Laboratory - Hematology and Cell countson 12-19-2021 Erythrocyte distribution width (RBC) [Entitic vol] 50.5 fL 35.1-43.9 [facility] Work Phone: Erythrocyte distribution width (RBC) [Ratio] 16.0 % 11.6-14.6 [facility] Work Phone: MCH (RBC) [Entitic mass] 27.1 pg 27.0-32.0 [facility] Work Phone: MCHC Auto (RBC) [Mass/Vol]on 12-19-2021 MCHC (RBC) [Mass/Vol] 31.7 g/dL 32-36 [facility] Work Phone: No Panel Informationon 12-19 Estimated GFR (MDRD) Amer 153 mL/min >60 [facility] Work Phone: Comment on above: GFR Calc Estimated GFR (MDRD) Non-Af Amer 126 mL/min >60 [facility] Work Phone: Comment on above: Non- GFR Calc Platelets bldon 12-19-2021 Platelets (Bld) [#/Vol] 363 10*3/uL 150-450 [facility] Work Phone: Serum or plasma calcium oral urement (mass/volume)on 12-19-2021 Calcium [Mass/Vol] 9.5 mg/dL 8.5-10.1 [facility] Work Phone: Serum or plasma creatinine m easurement (mass/volume)on 12-19-2021 Creatinine [Mass/Vol] 0.66 mg/dL 0.70-1.30 [facility] Work Phone: Comment on above: The validity of the calculated GFR & GFRAA in patients over 70 years has not been determined. Clinical correlation is essential. Serum or plasma urea nitroge n measurement (mass/volume)on 12-19-2021 Urea nitrogen [Mass/Vol] 18 mg/dL 7-18 [facility] Work Phone: Thin prep Papanicolaou smear with manual screeningon 12-19-2021 Thin prep Papanicolaou smear with manual screening 5 5-15 [facility] Work Phone: Laboratory - Coagulationon 0 12-12-2021 INR Coag (Bld) [Relative time] 2.0 {INR} [facility] Work Phone: Comment on above: Critical Value > 4.0 Whole blood prothrombin time on 12-12-2021 PT Coag (Bld) [Time] 23.9 s 11.7-14.9 [facility] Work Phone: ANES POSTPROC EVALon 022 ANES POSTPROC EVAL Normal [facility] Laboratory - Coagulationon 0 12-08-2021 INR Coag (Bld) [Relative time] 1.8 {INR} [facility] Work Phone: Comment on above: Critical Value > 4.0 Whole blood prothrombin time on 12-08-2021 PT Coag (Bld) [Time] 21.0 s 11.7-14.9 [facility] Work Phone: Absolute lymphocyte counton 12-05-2021 Lymphocytes Auto (Unsp spec) [#/Vol] 2.97 10*3/uL 0.83-4.51 [facility] Work Phone: Basophil percentageon 2021 Basophils/100 WBC (Bld) 0.6 % 0-1 [facility] Work Phone: Chloride [Moles/Vol] 106 mmol/L 98-107 [facility] Work Phone: Eosinophils/100 WBC (Bld) 2.3 % 0-5 [facility] Work Phone: Glucose [Mass/Vol] 107 mg/dL 74-106 [facility] Work Phone: Comment on above: Fasting Glucose resu lt from 100 to 125 mg/dL suggests IMPAIRED HOMEOSTASIS per A.D.A. criteria. Neutrophils (Bld) [#/Vol] 5.6 10*3/uL 2.0-7.7 [facility] Work Phone: [phone] Neutrophils/100 WBC (Bld) 60.2 % 47-70 [facility] Work Phone: Potassium [Moles/Vol] 3.4 mmol/L 3.5-5.1 [facility] Work Phone: Sodium [Moles/Vol] 139 mmol/L 136-145 [facility] Work Phone: [phone] WBC (Bld) [#/Vol] 9.3 10*3/uL 4.4-11.0 [facility] Work Phone: Blood erythrocytes count (nu mber/volume)on 12-05-2021 RBC (Bld) [#/Vol] 4.49 10*6/uL 4.6-6.2 [facility] Work Phone: Blood hemoglobin measurement (mass/volume)on 12-05-2021 Hemoglobin (Bld) [Mass/Vol] 12.1 g/dL 13.0-16.5 [facility] Work Phone: Blood lymphocytes/100 leukoc yteson 12-05-2021 Lymphocytes/100 WBC (Bld) 32.0 % 19-41 [facility] Work Phone: Blood monocytes/100 leukocyt eson 12-05-2021 Monocytes/100 WBC (Bld) 4.7 % 0-10 [facility] Work Phone: Blood platelet mean volumeon 12-05-2021 Platelet mean volume (Bld) [Entitic vol] 10.8 fL 6.2-12.0 [facility] Work Phone: Determination of erythrocyte mean corpuscular volume (MCV)on 12-05-2021 MCV (RBC) [Entitic vol] 84.9 fL 80-94 [facility] Work Phone: Hematocrit Auto (Bld) [Volum e fraction]on 12-05-2021 Hematocrit (Bld) [Volume fraction] 38.1 % 40-54 [facility] Work Phone: INR in Blood by Coagulation assayon 12-05-2021 INR Coag (Bld) [Relative time] 1.8 {INR} [facility] Work Phone: Laboratory - Chemistry and C hemistry - challengeon 12-05-2021 CO2 [Moles/Vol] 29.0 mmol/L 21.0-32.0 [facility] Work Phone: Urea nitrogen/Creatinine [Mass ratio] 25.4 mg/mg 10-20 [facility] Work Phone: Laboratory - Coagulationon 0 12-05-2021 PT Coag (PPP) [Time] 20.5 s 11.7-14.9 [facility] Work Phone: Laboratory - Hematology and Cell countson 12-05-2021 Erythrocyte distribution width (RBC) [Entitic vol] 48.5 fL 35.1-43.9 [facility] Work Phone: Erythrocyte distribution width (RBC) [Ratio] 15.7 % 11.6-14.6 [facility] Work Phone: Immature granulocytes/100 WBC (Bld) 0.200 % 0.0-0.9 [facility] Work Phone: Comment on above: IG% - Immature Granu locytes (promyelocytes, myelocytes and metamyelocytes) > 1% indicates that a LEFT SHIFT is Present. MCH (RBC) [Entitic mass] 26.9 pg 27.0-32.0 [facility] Work Phone: Nucleated RBC/100 WBC (Bld) [Ratio] 0 % 0-5 [facility] Work Phone: MCHC Auto (RBC) [Mass/Vol]on 12-05-2021 MCHC (RBC) [Mass/Vol] 31.8 g/dL 32-36 [facility] Work Phone: No Panel Informationon 12-05 Estimated GFR (MDRD) Amer 133 mL/min >60 [facility] Work Phone: Comment on above: GFR Calc Estimated GFR (MDRD) Non-Af Amer 110 mL/min >60 [facility] Work Phone: Comment on above: Non- GFR Calc Platelets bldon 12-05-2021 Platelets (Bld) [#/Vol] 363 10*3/uL 150-450 [facility] Work Phone: Serum or plasma calcium oral urement (mass/volume)on 12-05-2021 Calcium [Mass/Vol] 9.4 mg/dL 8.5-10.1 [facility] Work Phone: Serum or plasma creatinine m easurement (mass/volume)on 12-05-2021 Creatinine [Mass/Vol] 0.75 mg/dL 0.70-1.30 [facility] Work Phone: Comment on above: The validity of the calculated GFR & GFRAA in patients over 70 years has not been determined. Clinical correlation is essential. Serum or plasma urea nitroge n measurement (mass/volume)on 12-05-2021 Urea nitrogen [Mass/Vol] 19 mg/dL 7-18 [facility] Work Phone: Thin prep Papanicolaou smear with manual screeningon 12-05-2021 Thin prep Papanicolaou smear with manual screening 4 5-15 [facility] Work Phone: Basophil percentageon 2021 Basophil percentage 0 SEEN /hpf 0-5 [facility] Work Phone: Chloride [Moles/Vol] 104 mmol/L 98-107 [facility] Work Phone: Glucose [Mass/Vol] 90 mg/dL 74-106 [facility] Work Phone: Potassium [Moles/Vol] 3.7 mmol/L 3.5-5.1 [facility] Work Phone: Comment on above: Slight Hemolysis, Re sult may be falsely increased. Sodium [Moles/Vol] 138 mmol/L 136-145 [facility] Work Phone: WBC (Bld) [#/Vol] 10.7 10*3/uL 4.4-11.0 [facility] Work Phone: Bilirubin Test strip Ql (U)o n 12-01-2021 Bilirubin Ql (U) Negative Negative [facility] Work Phone: Blood erythrocytes count (nu mber/volume)on 12-01-2021 RBC (Bld) [#/Vol] 4.33 10*6/uL 4.6-6.2 [facility] Work Phone: Blood hemoglobin measurement (mass/volume)on 12-01-2021 Hemoglobin (Bld) [Mass/Vol] 11.6 g/dL 13.0-16.5 [facility] Work Phone: Blood platelet mean volumeon 12-01-2021 Platelet mean volume (Bld) [Entitic vol] 11.2 fL 6.2-12.0 [facility] Work Phone: Determination of erythrocyte mean corpuscular volume (MCV)on 12-01-2021 MCV (RBC) [Entitic vol] 85.2 fL 80-94 [facility] Work Phone: Hematocrit Auto (Bld) [Volum e fraction]on 12-01-2021 Hematocrit (Bld) [Volume fraction] 36.9 % 40-54 [facility] Work Phone: Ketones Test strip Ql (U)on 12-01-2021 Ketones Ql (U) Negative Negative [facility] Work Phone: Laboratory - Chemistry and C hemistry - challengeon 12-01-2021 CO2 [Moles/Vol] 27.0 mmol/L 21.0-32.0 [facility] Work Phone: Urea nitrogen/Creatinine [Mass ratio] 24.0 mg/mg 10-20 [facility] Work Phone: Laboratory - Coagulationon 0 12-01-2021 INR Coag (Bld) [Relative time] 1.6 {INR} [facility] Work Phone: Comment on above: Critical Value > 4.0 Laboratory - Hematology and Cell countson 12-01-2021 Erythrocyte distribution width (RBC) [Entitic vol] 47.9 fL 35.1-43.9 [facility] Work Phone: Erythrocyte distribution width (RBC) [Ratio] 15.5 % 11.6-14.6 [facility] Work Phone: MCH (RBC) [Entitic mass] 26.8 pg 27.0-32.0 [facility] Work Phone: MCHC Auto (RBC) [Mass/Vol]on 12-01-2021 MCHC (RBC) [Mass/Vol] 31.4 g/dL 32-36 [facility] Work Phone: Mucus LM Ql (Urine sed)on Mucus Ql (Urine sed) 0 SEEN /hpf [facility] Work Phone: Nitrite Test strip Ql (U)on 12-01-2021 Nitrite Ql (U) Negative Negative [facility] Work Phone: No Panel Informationon 12-01 Estimated GFR (MDRD) Amer 133 mL/min >60 [facility] Work Phone: Comment on above: GFR Calc Estimated GFR (MDRD) Non-Af Amer 110 mL/min >60 [facility] Work Phone: Comment on above: Non- GFR Calc Platelets bldon 12-01-2021 Platelets (Bld) [#/Vol] 336 10*3/uL 150-450 [facility] Work Phone: Protein Test strip Ql (U)on 12-01-2021 Protein Ql (U) 30 mg/dl Negative [facility] Work Phone: Serum or plasma calcium oral urement (mass/volume)on 12-01-2021 Calcium [Mass/Vol] 9.4 mg/dL 8.5-10.1 [facility] Work Phone: Serum or plasma creatinine m easurement (mass/volume)on 12-01-2021 Creatinine [Mass/Vol] 0.75 mg/dL 0.70-1.30 [facility] Work Phone: Comment on above: The validity of the calculated GFR & GFRAA in patients over 70 years has not been determined. Clinical correlation is essential. Serum or plasma urea nitroge n measurement (mass/volume)on 12-01-2021 Urea nitrogen [Mass/Vol] 18 mg/dL 7-18 [facility] Work Phone: Squamous epithelial cells de tection in urine sediment by light microscopyon 12-01-2021 Epithelial cells.squamous LM Ql (Urine sed) 0-5 SEEN /hpf 0-5 [facility] Work Phone: Thin prep Papanicolaou smear with manual screeningon 12-01-2021 Thin prep Papanicolaou smear with manual screening 7 5-15 [facility] Work Phone: Urine blood detectionon 11-05 RBC Ql (U) Negative Negative [facility] Work Phone: RBC Ql (U) 0 SEEN /hpf 0-5 [facility] Work Phone: Urine clarityon 12-01-2021 Clarity (U) Clear Clear [facility] Work Phone: Urine color determinationon 12-01-2021 Color (U) Yellow Yellow [facility] Work Phone: Urine glucose detectionon Glucose Ql (U) 50 mg/dl Normal [facility] Work Phone: Urine leukocyte esterase det ection by dipstickon 12-01-2021 Leukocyte esterase Test strip Ql (U) Negative Negative [facility] Work Phone: Urine pHon 12-01-2021 pH (U) 6.0 [pH] 5.0 - 8.0 [facility] Work Phone: Urine sediment bacteria coun t by microscopy (number/high power field)on 12-01-2021 Bacteria LM.HPF (Urine sed) [#/Area] 0 /[HPF] None Seen [facility] Work Phone: Urine sediment yeast count b y microscopy (number/high powered field)on 12-01-2021 Yeast LM.HPF (Urine sed) [#/Area] 2 /[HPF] None Seen [facility] Work Phone: Urine specific gravity measu rementon 12-01-2021 Specific gravity (U) [Rel density] 1.010 1.002-1.030 [facility] Work Phone: Urobilinogen Auto test strip Ql (U)on 12-01-2021 Urobilinogen Ql (U) Normal mg/dl Normal [facility] Work Phone: Whole blood prothrombin time on 12-01-2021 PT Coag (Bld) [Time] 19.8 s 11.7-14.9 [facility] Work Phone: Laboratory - Coagulationon 0 11-28-2021 INR Coag (Bld) [Relative time] 1.6 {INR} [facility] Work Phone: Comment on above: Critical Value > 4.0 Whole blood prothrombin time on 11-28-2021 PT Coag (Bld) [Time] 18.8 s 11.7-14.9 [facility] Work Phone: INR in Blood by Coagulation assayon 11-23-2021 INR Coag (Bld) [Relative time] 2.7 {INR} [facility] Work Phone: Laboratory - Coagulationon 0 11-23-2021 PT Coag (PPP) [Time] 28.0 s 11.7-14.9 [facility] Work Phone: Laboratory - Coagulationon 0 11-22-2021 INR Coag (Bld) [Relative time] 3.8 {INR} [facility] Work Phone: Comment on above: Critical Value > 4.0 Whole blood prothrombin time on 11-22-2021 PT Coag (Bld) [Time] 42.8 s 11.7-14.9 [facility] Work Phone: INR in Blood by Coagulation assayon 11-21-2021 INR Coag (Bld) [Relative time] 3.9 {INR} [facility] Work Phone: Laboratory - Coagulationon 0 11-21-2021 PT Coag (PPP) [Time] 37.7 s 11.7-14.9 [facility] Work Phone: Whole blood prothrombin time on 11-21-2021 PT Coag (Bld) [Time] 45.5 s 11.7-14.9 [facility] Work Phone: INR in Blood by Coagulation assayon 11-14-2021 INR Coag (Bld) [Relative time] 3.1 {INR} [facility] Work Phone: Laboratory - Coagulationon 0 11-14-2021 PT Coag (PPP) [Time] 31.4 s 11.7-14.9 [facility] Work Phone: Laboratory - Coagulationon 0 11-08-2021 INR Coag (Bld) [Relative time] 2.5 {INR} [facility] Work Phone: Comment on above: Critical Value > 4.0 Whole blood prothrombin time on 11-08-2021 PT Coag (Bld) [Time] 29.0 s 11.7-14.9 [facility] Work Phone: Basophil percentageon 2021 Chloride [Moles/Vol] 106 mmol/L 98-107 [facility] Work Phone: Glucose [Mass/Vol] 100 mg/dL 74-106 [facility] Work Phone: Comment on above: Fasting Glucose resu lt from 100 to 125 mg/dL suggests IMPAIRED HOMEOSTASIS per A.D.A. criteria. Potassium [Moles/Vol] 3.7 mmol/L 3.5-5.1 [facility] Work Phone: Sodium [Moles/Vol] 140 mmol/L 136-145 [facility] Work Phone: WBC (Bld) [#/Vol] 8.8 10*3/uL 4.4-11.0 [facility] Work Phone: Blood erythrocytes count (nu mber/volume)on 11-04-2021 RBC (Bld) [#/Vol] 4.05 10*6/uL 4.6-6.2 [facility] Work Phone: Blood hemoglobin measurement (mass/volume)on 11-04-2021 Hemoglobin (Bld) [Mass/Vol] 11.1 g/dL 13.0-16.5 [facility] Work Phone: Blood platelet mean volumeon 11-04-2021 Platelet mean volume (Bld) [Entitic vol] 10.8 fL 6.2-12.0 [facility] Work Phone: Determination of erythrocyte mean corpuscular volume (MCV)on 11-04-2021 MCV (RBC) [Entitic vol] 86.9 fL 80-94 [facility] Work Phone: Hematocrit Auto (Bld) [Volum e fraction]on 11-04-2021 Hematocrit (Bld) [Volume fraction] 35.2 % 40-54 [facility] Work Phone: INR in Blood by Coagulation assayon 11-04-2021 INR Coag (Bld) [Relative time] 1.8 {INR} [facility] Work Phone: Laboratory - Chemistry and C hemistry - challengeon 11-04-2021 CO2 [Moles/Vol] 26.0 mmol/L 21.0-32.0 [facility] Work Phone: Urea nitrogen/Creatinine [Mass ratio] 18.3 mg/mg 10-20 [facility] Work Phone: Laboratory - Coagulationon 0 11-04-2021 PT Coag (PPP) [Time] 20.4 s 11.7-14.9 [facility] Work Phone: Laboratory - Hematology and Cell countson 11-04-2021 Erythrocyte distribution width (RBC) [Entitic vol] 48.1 fL 35.1-43.9 [facility] Work Phone: Erythrocyte distribution width (RBC) [Ratio] 15.0 % 11.6-14.6 [facility] Work Phone: MCH (RBC) [Entitic mass] 27.4 pg 27.0-32.0 [facility] Work Phone: MCHC Auto (RBC) [Mass/Vol]on 11-04-2021 MCHC (RBC) [Mass/Vol] 31.5 g/dL 32-36 [facility] Work Phone: No Panel Informationon 11-04 D-Dimer Quantitative (PE/DVT) 0.56 FEU/ug/m 0.27-0.49 [facility] Work Phone: Comment on above: D-Dimer ELEVATED (>0 .49): Additional studies and clinicalassessments are indicated to conclude diagnosis of:Deep Vein Thrombosis (DVT) or Pulmonary Embolism (PE) Estimated GFR (MDRD) Amer 155 mL/min >60 [facility] Work Phone: Comment on above: GFR Calc Estimated GFR (MDRD) Non-Af Amer 128 mL/min >60 [facility] Work Phone: Comment on above: Non- GFR Calc Troponin I High Sensitivity 11 pg/mL 3.0-78.0 [facility] Work Phone: Comment on above: Please Note: New Fadumo t Units and Gender Specific Reference Ranges. For more information see Policy Stat Procedure [place] High Sensitivity Troponin (TNIH) and attachments. Platelets bldon 11-04-2021 Platelets (Bld) [#/Vol] 364 10*3/uL 150-450 [facility] Work Phone: Serum or plasma C reactive p rotein measurement (mass/volume)on 11-04-2021 CRP [Mass/Vol] 31.90 mg/L 0.0-3.0 [facility] Work Phone: Comment on above: C-Reactive Protein ( CRP) provides useful information for thediagnosis, therapy and monitoring of inflammatory processesand associated diseases. For the evaluation of Relative Riskfor Cardiovascular Disease, a High Sensitivity CRP (HSCRP)should be ordered. Serum or plasma calcium oral urement (mass/volume)on 11-04-2021 Calcium [Mass/Vol] 9.1 mg/dL 8.5-10.1 [facility] Work Phone: Serum or plasma creatinine m easurement (mass/volume)on 11-04-2021 Creatinine [Mass/Vol] 0.66 mg/dL 0.70-1.30 [facility] Work Phone: Comment on above: The validity of the calculated GFR & GFRAA in patients over 70 years has not been determined. Clinical correlation is essential. Serum or plasma urea nitroge n measurement (mass/volume)on 11-04-2021 Urea nitrogen [Mass/Vol] 12 mg/dL 7-18 [facility] Work Phone: Thin prep Papanicolaou smear with manual screeningon 11-04-2021 Thin prep Papanicolaou smear with manual screening 8 5-15 [facility] Work Phone: Complete Urinalysison 2021 Appearance (U) Clear Normal Clear [facility] Comment on above: Result Comment: . Performed By: #### C UA2 ####[email or web address] [place], [place] Bacteria Moderate Abnormal Negative [facility] Comment on above: Result Comment: . Performed By: #### C UA2 ####[facility] [employer] [id number] [place], [place] Bilirubin,Urine Negative Normal Negative [facility] Comment on above: Result Comment: . Performed By: #### C UA2 ####[email or web address] [place], [place] Cast, Hyaline Negative Normal Negative [facility] Comment on above: Result Comment: . Performed By: #### C UA2 ####[email or web address] [place], [place] Color (U) Yellow Normal Lt. Yellow [facility] Comment on above: Result Comment: . Performed By: #### C UA2 ####[employer] [id number] [place], [place] Glucose Ql (U) Normal Normal Normal (<70) [facility] Comment on above: Result Comment: . Performed By: #### C UA2 ####[email or web address] [place], [place] Ketone,Urine Negative Normal Negative [facility] Comment on above: Result Comment: . Performed By: #### C UA2 ####[facility] [employer] [id number] [place], [place] Leukocytes,Urine Negative Normal Negative [facility] Comment on above: Result Comment: . Performed By: #### C UA2 ####[id number] [place], [place] Mucous Threads Few Normal Negative [facility] Comment on above: Result Comment: . Performed By: #### C UA2 ####[id number] [place], [place] Nitrites,Urine Negative Normal Negative [facility] Comment on above: Result Comment: . Performed By: #### C UA2 ####[address] [place], [place] Occult Blood,Urine 0.1 mg/dL Abnormal Negative [facility] Comment on above: Result Comment: . Performed By: #### C UA2 ####[address] [place], [place] pH,Urine 5.5 Normal 5.0-8.0 [facility] Comment on above: Result Comment: . Performed By: #### C UA2 ####[address] [place], [place] Protein (U) [Mass/Vol] 10 mg/dL Abnormal Negative [facility] Comment on above: Result Comment: . Performed By: #### C UA2 ####[address] [place], [place] RBC, Urine 26 - 50 Abnormal 0-2 [facility] Comment on above: Result Comment: . Performed By: #### C UA2 ####[address] [place], [place] Specific [place],Urine 1.023 Normal 1.005 - 1.030 [facility] Comment on above: Result Comment: . Performed By: #### C UA2 ####[address] [place], [place] Squamous Epithelial Negative Normal 3-5 [facility] Comment on above: Result Comment: . Performed By: #### C UA2 ####[address] [place], [place] Urobilinogen,Urine Normal Normal Normal (0-1) [facility] Comment on above: Result Comment: . Performed By: #### C UA2 ####[facility] [place] [address] WBC, Urine 0 - 2 Normal 0-5 [facility] Comment on above: Result Comment: . Performed By: #### C UA2 ####[facility] [place] [address] Urinalysison 11-01-2021 Appearance (U) Clear Clear NA [...] (U) [Mass/Vol] 10 mg/dL Abnormal Negative [facility] Comment on above: . RBC, UA 26-50 Abnormal 0 - 2 /[HPF] [facility] Comment on above: . Specific [place], Urine 1.023 [facility] Comment on above: . Squam Epithel, UA Negative 3 - 5 /[HPF] [facility] Comment on above: . Urobilinogen, Urine Normal Normal ( 0-1) mg/dL [facility] Comment on above: . WBC, UA 0-2 0 - 5 /[HPF] [facility] Comment on above: . Test Performed by [facility], [address] [place] [address] [facility] Basic Metabolic Panelon 10-06 Anion gap [Moles/Vol] 6 mmol/L Normal 3-13 [facility] Comment on above: Performed By: #### P T/AP, TROPN, BMP3, HEMDF #### [facility] [address] [place], [place] Calcium [Mass/Vol] 9.1 mg/dL Normal 8.4-10.4 [facility] Comment on above: Performed By: #### P T/AP, TROPN, BMP3, HEMDF #### [facility] [address] [place], [place] CO2 [Moles/Vol] 28 mmol/L Normal 22-30 [facility] Comment on above: Performed By: #### P T/AP, TROPN, BMP3, HEMDF #### [place] [place], [place] Glucose [Mass/Vol] 120 mg/dL High 70-100 [facility] Comment on above: Performed By: #### P T/AP, TROPN, BMP3, HEMDF #### [place] [address] [place], [place] Urea nitrogen [Mass/Vol] 17 mg/dL Normal 7-17 [facility] Comment on above: Performed By: #### P T/AP, TROPN, BMP3, HEMDF #### [place] [address] [place], [place] Creatinine [Mass/Vol] 0.65 mg/dL Normal 0.52-1.25 [facility] Comment on above: Performed By: #### P T/AP, TROPN, BMP3, HEMDF #### [place] [address] [place], [place] eGFR OTHER > 90.0 Normal >60 [facility] Comment on above: Result Comment: KDIG [...] P T/AP, TROPN, BMP3, HEMDF #### [address] GFR/1.73 sq M.predicted among blacks MDRD (S/P/Bld) [Vol rate/Area] mL/min/{1.73_m2} Normal >60 [facility] Comment on above: Performed By: #### P T/AP, TROPN, BMP3, HEMDF #### [address] Potassium [Moles/Vol] 3.8 mmol/L Normal 3.5-5.1 [facility] Comment on above: Performed By: #### P T/AP, TROPN, BMP3, HEMDF #### [address] Chloride [Moles/Vol] 101 mmol/L Normal 98-107 [facility] Comment on above: Performed By: #### P T/AP, TROPN, BMP3, HEMDF #### [address] Sodium [Moles/Vol] 134 mmol/L Low 135-145 [facility] Comment on above: Performed By: #### P T/AP, TROPN, BMP3, HEMDF #### [address] Anion gap [Moles/Vol] 6 mmol/L 3 - 13 mmol/L [facility] Calcium [Mass/Vol] 9.1 mg/dL 8.4 - 10. 4 mg/dL [facility] Chloride [Moles/Vol] 101 mmol/L 98 - 10 7 mmol/L [facility] CO2 [Moles/Vol] 28 mmol/L 22 - 30 mmol/L [facility] Creatinine [Mass/Vol] 0.65 mg/dL 0.52 [...] - 17 mg/dL [facility] Test Performed by [id number] [place] [address] LAB [facility] CBC with Auto Differentialon 10-31-2021 [...] 10.7 10*3/uL [facility] Test Performed by [facility], [address] [place] [id number] [place] [address] LAB [facility] CR Abdomen APon 10-31-2021 CR Abdomen AP Patient Name: ANDREW SIFUENTES Diagnostic Radiology ACCESSION EXAM DATE/TIME PROCEDURE ORDERING PROVIDER [id number] 10/31/2021 20:36 EDT CR Abdomen [place] [id number] MARTÍNEZ CPT code 29387 Reason For Exam (CR Abdomen AP) vp hr diversity shunt, 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 CHEST PORTABLE [...] Transcribed Date and Time: 10/31/2021 8:49 Normal [facility] CR Chest Portableon 11-01-19 22 CR Chest Portable Patient [id number] Diagnostic Radiology ACCESSION EXAM DATE/TIME PROCEDURE ORDERING PROVIDER [id number] 10/31/2021 20:36 EDT CR Chest Portable [id number] MYRON GALINDO CPT code 36498 Reason For Exam (CR Chest Portable) AMS [...] Transcribed Date and Time: 10/31/2021 8:49 Normal [facility] CT HEAD WO CONTRASTon 2021 Patient Name: [id number] Computed Tomography ACCESSION EXAM DATE/TIME PROCEDURE ORDERING PROVIDER [id number] 10/31/2021 20:[address] Head or Brain w/o [id number] -MYRON DURAN Contrast CPT code 88735 Reason For Exam (CT Head or Brain w/o Contrast) AMS, previous NURSING COORDINATOR shunt Report Examination: CT Head Clinical Information: AMS, previous NURSING COORDINATOR shunt Comparison: 10/26/2021, MRI 10/27/2021 Findings: Serial [...] J Transcribed Date and Time: 10/31/2021 8:54 [facility] RAD Carla Wong MD - 10/31/2021 Patient Name: [facility]ES [id number] Computed Tomography ACCESSION EXAM DATE/TIME PROCEDURE ORDERING PROVIDER [id number] 10/31/2021 20:[address] Head or Brain w/o [id number] -MYRON DURAN Contrast CPT code 45179 Reason For Exam (CT Head or Brain w/o Contrast) AMS, previous NURSING COORDINATOR shunt Report Examination: CT Head Clinical Information: AMS, previous NURSING COORDINATOR shunt Comparison: 10/26/2021, MRI 10/27/2021 Findings: Serial [...] Patient Name: [facility]ENTES [id number] Computed Tomography ACCESSION EXAM DATE/TIME PROCEDURE ORDERING PROVIDER [id number] 10/31/2021 20:[address] Head or Brain w/o [id number] -MYRON DURAN Contrast CPT code 54924 Reason For Exam (CT Head or Brain w/o Contrast) AMS, previous NURSING COORDINATOR shunt Report Examination: CT Head Clinical Information: AMS, previous NURSING COORDINATOR shunt Comparison: 10/26/2021, MRI 10/27/2021 Findings: Serial [...] Transcribed Date and Time: 10/31/2021 8:54 Normal [facility] ED Provider Noteon ED Provider Note Emergency Department Encounter [facility] EMERGENCY DEPT Patient: Andrew Sifuentes : 1950 [...] [employer] Dante Kim MD 10/31/21 7121 Normal [facility] ED Provider Note [facility] EMERGENCY DEPARTMENT ENCOUNTER Pt Name: Andrew Sifuentes Birthdate 1950 Date of evaluation: 10/31/2021 Provider: Myron Duran MD CHIEF COMPLAINT Chief Complaint Patient presents with ? Altered Mental Status Pt presents to ED via [facility] for complaint listed. Pt is from [place] [facility]. Pt's LKW was 1000 hours [...] have a history of hydrocephalus with a NURSING COORDINATOR shunt. 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 REVIEW OF [...] (HCC) ? Kidney stone ? Neuropathy ? NURSING COORDINATOR (ventriculoperitoneal) shunt status SURGICAL HISTORY Past Surgical [...] of Transportati (more content not included)... Normal [facility] EKG 12 Lead - Chest Painon 0 10-31-2021 [facility] Test Date: 2021-10-31 Pat Name: ANDREW SIFUENTES Department: ER Room: 40 Gender: M Well Puller: ANDRES : 1950 Requested By: MYRON DURAN Order Number: [id number] Reading MD: Dante Kim Measurements Intervals [place] Rate: 91 P: 41 FL: 154 QRS: 50 QRSD: 147 T: 8 QT: 385 QTc: 474 Interpretive Statements Sinus rhythm Right bundle branch block Electronically Signed On 10-31-2021 20:36:25 EDT by Dante Kim [facility] CARDI[facility] Dante Kim M D - 10/31/2021 [facility] Test Date: 2021-10-31 Pat Name: ANDREW SIFUENTES Department: ER Room: 40 Gender: M Well Puller: ANDRES : 1950 Requested By: MYRON DURAN Order Number: [id number] Reading MD: Dante Kim Measurements Intervals [place] Rate: 91 P: 41 FL: 154 QRS: [...] Abs Baso Cnt 0.1 10*3/uL Normal 0.0-0.2 [facility] Comment on above: Performed By: #### P T/AP, TROPN, BMP3, HEMDF #### [facility] [place] [facility] [address] [place] [address] Abs Neutrophile Cnt 6.0 10*3/uL Normal 1.8-7.0 [facility] Comment on above: Performed By: #### P T/AP, TROPN, BMP3, HEMDF #### [address] [address] [place], [place] Basophils/100 WBC (Bld) 1.1 % Normal 0.0-2.0 [facility] Comment on above: Performed By: #### P T/AP, TROPN, BMP3, HEMDF #### [address] [address] [place], [place] Eosinophils (Bld) [#/Vol] 0.2 10*3/uL Normal 0.0-0.5 [facility] Comment on above: Performed By: #### P T/AP, TROPN, BMP3, HEMDF #### [address] [address] [place], [place] Eosinophils/100 WBC (Bld) 2.3 % Normal 1.0-6.0 [facility] Comment on above: Performed By: #### P T/AP, TROPN, BMP3, HEMDF #### [address] Erythrocyte distribution width (RBC) [Ratio] 17.2 % High 11.5-14.5 [facility] Comment on above: Performed By: #### P T/AP, TROPN, BMP3, HEMDF #### [address] Granulocytes/100 WBC (Bld) 61.8 % Normal 40.0-80.0 [facility] Comment on above: Performed By: #### P T/AP, TROPN, BMP3, HEMDF #### [address] [address] [place], [place] Hematocrit (Bld) [Volume fraction] 35.0 % Low 40.0-52.0 [facility] Comment on above: Performed By: #### P T/AP, TROPN, BMP3, HEMDF #### [address] [address] [place], [place] Hemoglobin (Bld) [Mass/Vol] 11.3 g/dL Low 13.0-18.0 [facility] Comment on above: Performed By: #### P T/AP, TROPN, BMP3, HEMDF #### [address] [place], [place] Lymphocytes (Bld) [#/Vol] 2.8 10*3/uL Normal 1.0-4.3 [facility] Comment on above: Performed By: #### P T/AP, TROPN, BMP3, HEMDF #### [address] [address] [place], [place] Lymphocytes/100 WBC (Bld) 29.2 % Normal 20.0-40.0 [facility] Comment on above: Performed By: #### P T/AP, TROPN, BMP3, HEMDF #### [address] MCH (RBC) [Entitic mass] 27.5 pg Normal 26.0-34.0 [facility] Comment on above: Performed By: #### P T/AP, TROPN, BMP3, HEMDF #### [address] [place], [place] MCHC 32.3 % Normal 32.0-36.0 [facility] Comment on above: Performed By: #### P T/AP, TROPN, BMP3, HEMDF #### [address] MCV (RBC) [Entitic vol] 85.0 fL Normal 80.0-98.0 [facility] Comment on above: Performed By: #### P T/AP, TROPN, BMP3, HEMDF #### [address] [place], [place] Monocytes (Bld) [#/Vol] 0.5 10*3/uL Normal 0.0-0.8 [facility] Comment on above: Performed By: #### P T/AP, TROPN, BMP3, HEMDF #### [address] [address] [place], [place] Monocytes/100 WBC (Bld) 5.6 % Normal 2.0-10.0 [facility] Comment on above: Performed By: #### P T/AP, TROPN, BMP3, HEMDF #### [facility] [address] [place], [place] Platelet mean volume (Bld) [Entitic vol] 8.6 fL Normal 7.4-12.4 [facility] Comment on above: Result Comment: MPV is a calculated measurement using platelet volume ratio. Performed By: #### P T/AP, TROPN, BMP3, HEMDF #### [facility] [address] [place], [place] Platelets (Bld) [#/Vol] 348 10*3/uL Normal 140-440 [facility] Comment on above: Performed By: #### P T/AP, TROPN, BMP3, HEMDF #### [address] [place], [place] RBC (Bld) [#/Vol] 4.12 10*6/uL Low 4.40-5.90 [facility] Comment on above: Performed By: #### P T/AP, TROPN, BMP3, HEMDF #### [facility] [address] [place], [place] WBC (Bld) [#/Vol] 9.7 10*3/uL Normal 3.6-10.7 [facility] Comment on above: Performed By: #### P T/AP, TROPN, BMP3, HEMDF #### [facility] [address] [place], [place] Laboratory - Coagulationon 0 10-31-2021 INR Coag (Bld) [Relative time] 2.0 {INR} [facility] Work Phone: Comment on above: Critical [...] s High 9.0 - 12.0 s [facility] Comment on above: . Test Performed by [facility], [address] [place] [address] [facility] Protime AND APTTon 2 aPTT Coag (Bld) [Time] 39.2 s High 20.0-30.5 [facility] Comment on above: Result Comment: NOTE : The therapeutic time for Heparin anticoagulation, based on Xa activity inhibition, is an APTT of 46-80 seconds. Performed By: #### P T/AP, TROPN, BMP3, HEMDF #### [address] [address] INR 1.9 High 0.9-1.1 [facility] Comment on above: Result Comment: Harry [...] P T/AP, TROPN, BMP3, HEMDF #### [address] [address] PT Coag (PPP) [Time] 19.8 s High 9.0-12.0 [facility] Comment on above: Result Comment: . Performed By: #### P T/AP, TROPN, BMP3, HEMDF #### [address] [address] Troponin Ion 10-31-2021 Troponin I.cardiac [Mass/Vol] ng/mL Normal 0.000-0.034 [facility] Comment on above: Result Comment: . Performed By: #### P T/AP, TROPN, BMP3, HEMDF #### [facility] [address] [place] [address] Troponin x1on 10-31-2021 Troponin I.cardiac [Mass/Vol] ng/mL 0.000 - 0.034 ng/mL [facility] Comment on above: . Test Performed by [facility], [address] [place] [address] [facility] Whole blood prothrombin time on 10-31-2021 PT Coag (Bld) [Time] 23.7 s 11.7-14.9 [facility] Work Phone: XR ABDOMEN (KUB) (SINGLE AP VIEW)on 10-31-2021 Patient Name: [id number] Radiology ACCESSION EXAM DATE/TIME PROCEDURE ORDERING PROVIDER [id number] 10/31/2021 20:36 EDT CR Abdomen AP [id number] -MYRON DURAN CPT code 25218 Reason For Exam (CR Abdomen AP) vp hr diversity shunt, 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 CHEST PORTABLE [...] Radiology ACCESSION EXAM DATE/TIME PROCEDURE ORDERING PROVIDER [id number] 10/31/2021 20:36 EDT CR Abdomen AP [id number] -MYRON DURAN CPT code 10593 Reason For Exam (CR Abdomen AP) vp hr diversity shunt, 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 CHEST PORTABLE [...] and Time: 10/31/2021 8:49 [facility] Work Phone: [facility] Work Phone: XR CHEST PORTABLEon 11-01-19 Patient Name: ANDREW SIFUENTES Diagnostic Radiology ACCESSION EXAM DATE/TIME PROCEDURE ORDERING PROVIDER [id number] 10/31/2021 20:36 EDT CR Chest Portable [id number] -MYRON DURAN CPT code 76298 Reason For Exam (CR Chest Portable) AMS [...] WENDELL Transcribed Date and Time: 10/31/2021 8:49 [facility] Huang Munoz MD - 10/31/2021 Patient Name: ANDREW SIFUENTES Diagnostic Radiology ACCESSION EXAM DATE/TIME PROCEDURE ORDERING PROVIDER [id number] 10/31/2021 20:36 EDT CR Chest Portable [id number] MYRON GALINDO CPT code 25822 Reason For Exam (CR Chest Portable) AMS [...] WENDELL Transcribed Date and Time: 10/31/2021 8:49 [facility] Work Phone: XR CHEST PORTABLEOrdered By: Huang Reynoso on 10-31-2021 [facility] Work Phone: Lupus Anticoagulanton 2021 DRVVT Confirmation Test Not Applicable Negative ratio [facility] Work Phone: dRVVT Screen 38 [facility] Work Phone: Hex Phosph Neut Test Not Applicable Negative NA [facility] Work Phone: Interpretation and review of laboratory results Abnormal [facility] Work Phone: LUPUS INTERPRETATION See Note [facility] Work Phone: Comment on above: Lupus anticoagulant [...] has not already been performed. Performed by [employer], [address], [facility] [address] [email or web address], Quiana Castro MD - Lab. Director Platelet Neutralization Not Applicable Negative NA [facility] Work Phone: [phone] PTT-D Heparin Neutralized 48 [facility] Work Phone: PTT-LA 55 High [facility] Work Phone: Reptilase Tm 17.6 <=21.9 sec [facility] Work Phone: Thrombin Time 25.3 High [facility] Work Phone: [facility] Work Phone: Lupus Anticoagulant Reflexiv e Panelon 10-29-2021 aPTT Coag (Bld) [Time] 55 s High 32-48 [facility] Comment on above: Performed By: #### C OVAG #### [facility] [address] [place] [address] aPTT Coag (Bld) [Time] 48 s Normal 32-48 [facility] Comment on above: Performed By: #### C OVAG #### [facility] [address] [place] [address] DRVVT 1:1 Mix Not Applicable Normal 33-44 [facility] Work Phone: Comment on above: Performed By: #### C OVAG #### [facility] [address] [place] [address] dRVVT Confirmation Not Applicable Normal Negative [facility] Comment on above: Performed By: #### C OVAG #### [facility] [address] [place] [address] dRVVT Screen 38 sec Normal 33-44 [facility] Comment on above: Performed By: #### C OVAG #### [facility] [address] [place] [address] Hexagonal Phospholipid Neutral Reflex Not Applicable Normal Negative [facility] Comment on above: Performed By: #### C OVAG #### [facility] [address] [place] [address] Lupus Anticoagulant Interpretation See Note Normal [facility] Comment on above: Result Comment: Lupu [...] has not already been performed. Performed by [employer], [address] [place] [id number] [email or web address], Quiana Castro MD - Lab. Director Performed By: #### C OVAG #### [facility] [address] [place] [address] Platelet Neutralization (PTT-D, Confirm) Not Applicable Normal Negative [facility] Comment on above: Performed By: #### C OVAG #### [facility] [address] [place] [address] PT Coag (PPP) [Time] 14.7 s Normal 12.0-15.5 [facility] Work Phone: Comment on above: Performed By: #### C OVAG #### [facility] [address] [place] [address] PTT-D 1:1 Mix Not Applicable Normal 32-48 [facility] Work Phone: Comment on above: Performed By: #### C OVAG #### [facility] [address] [place] [address] Reptilase Time 17.6 sec Normal <=21.9 [facility] Comment on above: Performed By: #### C OVAG #### [facility] [address] [place] [address] Thrombin Time 25.3 sec High 14.7-19.5 [facility] Comment on above: Performed By: #### C OVAG #### [facility] [address] [place] [address] POCT COVID-19, Antigenon SARS-CoV-2 Nucleocapsid Antigen Negative Negative NA [facility] Comment on above: A negative result does not rule out the possibility of SARS-CoV-2 infection. NAAT-based methods should be considered for symptomatic patients presenting greater than seven days after onset of symptoms. Method: Lateral flow immunoassay. Fact sheets for healthcare providers and patients can be found at the following sites: https://www.fda.gov/media/700130/download https://www.fda.gov/media/589253/download Test Performed by [facility], [address] [facility] [place] [id number] [place] [address] LAB [facility] Prothrombin Timeon INR 2.7 High 0.9-1.1 [facility] Comment on above: Result Comment: Harry [...] Infarction Performed By: #### P T #### [facility] [address] [place] [address] PT Coag (PPP) [Time] 27.4 s High 9.0-12.0 [facility] Comment on above: Result Comment: . Performed By: #### P T #### [facility] [address] [place] [address] Protime-INRon 10-29-2021 INR Coag (Bld) [Relative time] [...] s High 9.0 - 12.0 s [facility] Work Phone: [phone] Comment on above: . Test Performed by [facility] [place] [facility], [address], [place], [place] [address] [facility] Work Phone: [phone] SARS-CoV-2 Antigenon 022 SARS-CoV-2 Antigen Negative Normal Negative [facility] Comment on above: Result Comment: A negative result does not rule out the possibility of SARS-CoV-2 infection. NAAT-based methods should be considered for symptomatic patients presenting greater than seven days after onset of symptoms. Method: Lateral flow immunoassay. Fact sheets for healthcare providers and patients can be found at the following sites: https://www.[employer].gov/media/218023/download https://www.[employer].gov/media/574695/download Performed By: #### C OVAG #### [facility] [place] [facility] [address] [place] [address] [employer]Con 10-28-2021 Hematocrit (Bld) [Volume fraction] 33.4 % Low 40.0 - 52.0 % [facility] Work Phone: Hemoglobin (Bld) [Mass/Vol] 11.0 g/dL Low 13.0 - 18.0 g/dL [facility] Work Phone: Interpretation and review of laboratory results Abnormal [facility] Work Phone: MCH (RBC) [Entitic mass] 27.8 pg 26.0 - 34.0 pg [facility] Work Phone: MCHC (RBC) [Mass/Vol] 32.8 % 32.0 - 36.0 % [facility] Work Phone: MCV (RBC) [Entitic vol] 84.8 fL 80.0 - 98.0 fL [facility] Work Phone: Platelet distribution width (Bld) [Ratio] 17.1 % High 11.5 - 14.5 % [employer] Work Phone: Platelet mean volume (Bld) [Entitic vol] 8.3 fL 7.4 - 12.4 fL [employer] Work Phone: Comment on above: MPV is a calculated measurement using platelet volume ratio. Platelets (Bld) [#/Vol] 344 10*3/uL 140 - 440 10*3/uL [employer] Work Phone: [phone] RBC (Bld) [#/Vol] 3.94 10*6/uL Low 4.40 - 5.9 0 10*6/uL [employer] Work Phone: [phone] WBC (Bld) [#/Vol] 10.0 10*3/uL 3.6 - 10.7 10*3/uL [employer] Work Phone: Test Performed by [facility], [address] [place], [place] [id number] [place] [address] LAB [facility] Work Phone: Comp Metabolic Panelon 10-28 ALP [Catalytic activity/Vol] 103 U/L Normal 38-126 [facility] Comment on above: Performed By: #### C A19O, LUPUS #### The performing lab is in the report. #### NSEO #### [facility] #### HEMDF, LDH3, BMP3, MG3, PT, CEA2 #### [facility] [address] [place] [address] #### B2GPM, B2GPA, B2GPG #### [facility] [address] [place] [address] ALT [Catalytic activity/Vol] 26 U/L Normal 0-49 [facility] Comment on above: Result Comment: The ALT test is performed by an updated assay method. Please note that the reference intervals have been changed and are now sex specific. Performed By: #### C A19O, LUPUS #### The performing lab is in the report. #### NSEO #### [facility] #### HEMDF, LDH3, BMP3, MG3, PT, CEA2 #### [facility] [address] [place] [address] #### B2GPM, B2GPA, B2GPG #### [address] AST [Catalytic activity/Vol] 24 U/L Normal 15-46 [facility] Comment on above: Performed By: #### C A19O, LUPUS #### The performing lab is in the report. #### NSEO #### [facility] #### HEMDF, LDH3, BMP3, MG3, PT, CEA2 #### [place] [address] [place] #### B2GPM, B2GPA, B2GPG #### [address] Calcium [Mass/Vol] 9.1 mg/dL Normal 8.4-10.4 [facility] Comment on above: Performed By: #### C A19O, LUPUS #### The performing lab is in the report. #### NSEO #### [facility] #### HEMDF, LDH3, BMP3, MG3, PT, CEA2 #### [address] [place] [address] #### B2GPM, B2GPA, B2GPG #### [address] Glucose [Mass/Vol] 117 mg/dL High 70-100 [facility] Comment on above: Performed By: #### C A19O, LUPUS #### The performing lab is in the report. #### NSEO #### [facility] #### HEMDF, LDH3, BMP3, MG3, PT, CEA2 #### [place] [address] [place] [address] #### B2GPM, B2GPA, B2GPG #### [address] Urea nitrogen [Mass/Vol] 16 mg/dL Normal 7-17 [facility] Comment on above: Performed By: #### C A19O, LUPUS #### The performing lab is in the report. #### NSEO #### [facility] #### HEMDF, LDH3, BMP3, MG3, PT, CEA2 #### [place] [address] [place] [address] #### B2GPM, B2GPA, B2GPG #### [address] Anion gap [Moles/Vol] 5 mmol/L Normal 3-13 [facility] Comment on above: Performed By: #### C A19O, LUPUS #### The performing lab is in the report. #### NSEO #### [facility] #### HEMDF, LDH3, BMP3, MG3, PT, CEA2 #### [place] [address] [place] [address] #### B2GPM, B2GPA, B2GPG #### [address] Bilirubin [Mass/Vol] 0.4 mg/dL Normal 0.2-1.3 [facility] Comment on above: Performed By: #### C A19O, LUPUS #### The performing lab is in the report. #### NSEO #### [facility] #### HEMDF, LDH3, BMP3, MG3, PT, CEA2 #### [place] [address] [place] [address] #### B2GPM, B2GPA, B2GPG #### [address] CO2 [Moles/Vol] 29 mmol/L Normal 22-30 [facility] Comment on above: Performed By: #### C A19O, LUPUS #### The performing lab is in the report. #### NSEO #### [facility] #### HEMDF, LDH3, BMP3, MG3, PT, CEA2 #### [place] [address] [place] [address] #### B2GPM, B2GPA, B2GPG #### [address] Creatinine [Mass/Vol] 0.71 mg/dL Normal 0.52-1.25 [facility] Comment on above: Performed By: #### C A19O, LUPUS #### The performing lab is in the report. #### NSEO #### [facility] #### HEMDF, LDH3, BMP3, MG3, PT, CEA2 #### [facility] [address] [place], [place] #### B2GPM, B2GPA, B2GPG #### [address] eGFR OTHER > 90.0 Normal >60 [facility] Comment on above: Result Comment: KDIG [...] HEMDF, LDH3, BMP3, MG3, PT, CEA2 #### [facility] [address] [place] [address] #### B2GPM, B2GPA, B2GPG #### [address] GFR/1.73 sq M.predicted among blacks MDRD (S/P/Bld) [Vol rate/Area] mL/min/{1.73_m2} Normal >60 [facility] Comment on above: Performed By: #### C A19O, LUPUS #### The performing lab is in the report. #### NSEO #### [facility] #### HEMDF, LDH3, BMP3, MG3, PT, CEA2 #### [facility] [address] [place] [address] #### B2GPM, B2GPA, B2GPG #### [address] Protein [Mass/Vol] 7.1 g/dL Normal 6.3-8.2 [facility] Comment on above: Performed By: #### C A19O, LUPUS #### The performing lab is in the report. #### NSEO #### [facility] #### HEMDF, LDH3, BMP3, MG3, PT, CEA2 #### [facility] [address] [place] [address] #### B2GPM, B2GPA, B2GPG #### [address] Potassium [Moles/Vol] 3.5 mmol/L Normal 3.5-5.1 [facility] Comment on above: Performed By: #### C A19O, LUPUS #### The performing lab is in the report. #### NSEO #### [facility] #### HEMDF, LDH3, BMP3, MG3, PT, CEA2 #### [facility] [address] [place] [address] #### B2GPM, B2GPA, B2GPG #### [address] Sodium [Moles/Vol] 138 mmol/L Normal 135-145 [facility] Comment on above: Performed By: #### C A19O, LUPUS #### The performing lab is in the report. #### NSEO #### [facility] #### HEMDF, LDH3, BMP3, MG3, PT, CEA2 #### [facility] [address] [place] [address] #### B2GPM, B2GPA, B2GPG #### [address] Albumin [Mass/Vol] 3.7 g/dL Normal 3.5-5.0 [facility] Comment on above: Performed By: #### C A19O, LUPUS #### The performing lab is in the report. #### NSEO #### [facility] #### HEMDF, LDH3, BMP3, MG3, PT, CEA2 #### [facility] [address] [place] [address] #### B2GPM, B2GPA, B2GPG #### [address] Chloride [Moles/Vol] 104 mmol/L Normal 98-107 [facility] Comment on above: Performed By: #### C A19O, LUPUS #### The performing lab is in the report. #### NSEO #### [facility] #### HEMDF, LDH3, BMP3, MG3, PT, CEA2 #### [facility] [address] [place] [address] #### B2GPM, B2GPA, B2GPG #### [address] Comprehensive Metabolic Pane kiel 10-28-2021 Albumin [Mass/Vol] 3.7 g/dL 3.5 - 5.0 g/dL [facility] Work Phone: ALP (Bld) [Catalytic activity/Vol] 103 U/L 38 - 126 U/L [facility] Work Phone: ALT [Catalytic activity/Vol] 26 U/L 0 - 49 U/L [facility] Work Phone: Comment on above: The ALT [...] 22 - 30 mmol/L [facility] Work Phone: Creatinine [Mass/Vol] 0.71 mg/dL 0.52 - 1.25 mg/dL [facility] Work Phone: EGFR IF NonAfrican [place] >90.0 >60 mL/min [facility] Work Phone: Comment on above: [...] serum creatinine in children is the Bedside Emdina equation. It is less accurate in patients with extremes of muscle mass, restriction of dietary protein, ingestion of creatine, extra-renal metabolism of creatinine, or treatment with medications that affect renal tubular creatinine secretion. Free PSA/Total PSA [Mass fraction] 7.1 g/dL 6.3 - 8.2 g/dL [facility] Work Phone: GFR/1.73 sq M.predicted among blacks MDRD (S/P/Bld) [Vol rate/Area] mL/min/{1.73_m2} >60 mL/min [facility] Work Phone: Glucose [Mass/Vol] 117 mg/dL High 70 - 100 mg/dL [facility] Work Phone: Interpretation and review of laboratory results Abnormal [facility] Work Phone: Potassium [Moles/Vol] 3.5 mmol/L 3.5 - 5.1 mmol/L [facility] Work Phone: Sodium [Moles/Vol] 138 mmol/L 135 - 145 mmol/L [facility] Work Phone: Urea nitrogen (BldV) [Mass/Vol] 16 mg/dL 7 - 17 mg/dL [facility] Work Phone: Test Performed by [facility], [address] [place] [id number] [place] [address] LAB [facility] Work Phone: Hemogramon 10-28-2021 Erythrocyte distribution width (RBC) [Ratio] 17.1 % High 11.5-14.5 [facility] Comment on above: Performed By: #### C A19O, LUPUS #### The performing lab is in the report. #### NSEO #### [facility] #### HEMDF, LDH3, BMP3, MG3, PT, CEA2 #### [address] [address] #### B2GPM, B2GPA, B2GPG #### [address] [address] Hematocrit (Bld) [Volume fraction] 33.4 % Low 40.0-52.0 [facility] Comment on above: Performed By: #### C A19O, LUPUS #### The performing lab is in the report. #### NSEO #### [facility] #### HEMDF, LDH3, BMP3, MG3, PT, CEA2 #### [address] [address] #### B2GPM, B2GPA, B2GPG #### [address] Hemoglobin (Bld) [Mass/Vol] 11.0 g/dL Low 13.0-18.0 [facility] Comment on above: Performed By: #### C A19O, LUPUS #### The performing lab is in the report. #### NSEO #### [facility] #### HEMDF, LDH3, BMP3, MG3, PT, CEA2 #### [place] [address] [place], [place] #### B2GPM, B2GPA, B2GPG #### [address] MCH (RBC) [Entitic mass] 27.8 pg Normal 26.0-34.0 [facility] Comment on above: Performed By: #### C A19O, LUPUS #### The performing lab is in the report. #### NSEO #### [facility] #### HEMDF, LDH3, BMP3, MG3, PT, CEA2 #### [address] [place], [place] #### B2GPM, B2GPA, B2GPG #### [address] MCHC 32.8 % Normal 32.0-36.0 [facility] Comment on above: Performed By: #### C A19O, LUPUS #### The performing lab is in the report. #### NSEO #### [facility] #### HEMDF, LDH3, BMP3, MG3, PT, CEA2 #### [address] [place], [place] #### B2GPM, B2GPA, B2GPG #### [address] MCV (RBC) [Entitic vol] 84.8 fL Normal 80.0-98.0 [facility] Comment on above: Performed By: #### C A19O, LUPUS #### The performing lab is in the report. #### NSEO #### [facility] #### HEMDF, LDH3, BMP3, MG3, PT, CEA2 #### [facility] [address] [place] [address] #### B2GPM, B2GPA, B2GPG #### [address] Platelet mean volume (Bld) [Entitic vol] 8.3 fL Normal 7.4-12.4 [facility] Comment on above: Result Comment: MPV is a calculated measurement using platelet volume ratio. Performed By: #### C A19O, LUPUS #### The performing lab is in the report. #### NSEO #### [facility] #### HEMDF, LDH3, BMP3, MG3, PT, CEA2 #### [address] [facility] [place] #### B2GPM, B2GPA, B2GPG #### [address] Platelets (Bld) [#/Vol] 344 10*3/uL Normal 140-440 [facility] Comment on above: Performed By: #### C A19O, LUPUS #### The performing lab is in the report. #### NSEO #### [facility] #### HEMDF, LDH3, BMP3, MG3, PT, CEA2 #### [address] [facility] [place] #### B2GPM, B2GPA, B2GPG #### [address] RBC (Bld) [#/Vol] 3.94 10*6/uL Low 4.40-5.90 [facility] Comment on above: Performed By: #### C A19O, LUPUS #### The performing lab is in the report. #### NSEO #### [facility] #### HEMDF, LDH3, BMP3, MG3, PT, CEA2 #### [address] [place] [address] #### B2GPM, B2GPA, B2GPG #### [facility] [address] [place] [address] WBC (Bld) [#/Vol] 10.0 10*3/uL Normal 3.6-10.7 [facility] Comment on above: Performed By: #### C A19O, LUPUS #### The performing lab is in the report. #### NSEO #### [facility] #### HEMDF, LDH3, BMP3, MG3, PT, CEA2 #### [facility] [address] [place] [address] #### B2GPM, B2GPA, B2GPG #### [facility] [address] [place], [place] Neuron Specific Enolaseon Neuron Specific Enolase 20.8 Normal [facility] Comment on above: Result Comment: Neur on Specific Enolase, Serum 20.8 ng/mL H (Ref Interval: <=12.7) NSE and Hgb are elevated in the specimen. The elevated NSE may be a result of hemolysis as NSE is expressed in red blood cells. Interpret results with caution. INTERPRETIVE INFORMATION: Neuron Specific Enolase in Serum This assay is performed using the [employer] NSE Kryptor Immunoassay. Results obtained with different assay methods or kits cannot be used interchangeably. Results cannot be interpreted as absolute evidence of the presence or absence of malignant disease. This test was developed and its performance characteristics determined by [employer]. It has not been cleared or approved by the [place] Food and Drug Administration. This test was performed in a CLIA certified laboratory and is intended for clinical purposes. Performed By: #### C OVAG #### [facility] [address] [place] [address] Neuron specific enolase (NSE )on 10-28-2021 Neuron [...] Serum This assay is performed using the [employer] NSE Kryptor Immunoassay. Results obtained with different assay methods or kits cannot be used interchangeably. Results cannot be interpreted as absolute evidence of the presence or absence of malignant disease. This test was developed and its performance characteristics determined by [employer]. It has not been cleared or approved by the [place] Food and Drug Administration. This test was performed in a CLIA certified laboratory and is intended for clinical purposes. 1 [facility] LAB [facility] Work Phone: Prothrombin Timeon 2 INR 3.1 High 0.9-1.1 [facility] Comment on above: Result Comment: Harry [...] HEMDF, LDH3, BMP3, MG3, PT, CEA2 #### [facility] [address] [place] [address] #### B2GPM, B2GPA, B2GPG #### [address] [address] PT Coag (PPP) [Time] 30.8 s High 9.0-12.0 [facility] Comment on above: Result Comment: . Performed By: #### C A19O, LUPUS #### The performing lab is in the report. #### NSEO #### [facility] #### HEMDF, LDH3, BMP3, MG3, PT, CEA2 #### [facility] [address] [place] [address] #### B2GPM, B2GPA, B2GPG #### [address] [address] Protime-INRon 10-28-2021 INR Coag (Bld) [Relative time] [...] 30.8 s High 9.0 - 12.0 s [facility] Work Phone: Comment on above: . Test Performed by [facility], [address] 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 [id number] 10/27/2021 13:14 EDT MRI Brain w/o Contrast UNASSIGNED, UNASSIGNED CPT code 66747 Reason For Exam (MRI Brain w/o Contrast) stroke Patient has NURSING COORDINATOR shunt in place, please follow Radiology protocol [...] OSAMA Transcribed Date and Time: 10/27/2021 2:39 [facility] Venus Loyd MD - 10/27/2021 Patient Name: ANDREW SIFUENTES [facility] ACCESSION EXAM DATE/TIME PROCEDURE ORDERING PROVIDER [id number] 10/27/2021 13:14 EDT MRI Brain w/o Contrast UNASSIGNED, UNASSIGNED CPT code 21280 Reason For Exam (MRI Brain w/o Contrast) stroke Patient has NURSING COORDINATOR shunt in place, please follow Radiology protocol [...] Brain w/o Contrast Patient Name: ANDREW VELAZQUEZ [facility]#: [id number] Magnetic Resonance Imaging ACCESSION EXAM DATE/TIME PROCEDURE ORDERING PROVIDER [id number] 10/27/2021 13:14 EDT MRI Brain w/o Contrast UNASSIGNED, UNASSIGNED CPT code 51675 Reason For Exam (MRI Brain w/o Contrast) stroke Patient has NURSING COORDINATOR shunt in place, please follow Radiology protocol [...] Transcribed Date and Time: 10/27/2021 2:39 Normal [facility] Prothrombin Timeon INR 2.1 High 0.9-1.1 [facility] Comment on above: Result Comment: Harry [...] Infarction Performed By: #### P T #### [facility] [address] [place] [address] PT Coag (PPP) [Time] 21.9 s High 9.0-12.0 [facility] Work Phone: Comment on above: . Result Comment: . Performed By: #### P T #### [facility] [address] [place] [address] Protime-INRon 10-27-2021 INR Coag (Bld) [Relative time] [...] [facility] [place] Work Phone: Test Performed by [facility], [address] [place], [place], [place] [address] [facility] LAB [facility] Work Phone: CT HEAD WO CONTRASTon 2021 Patient Name: ANDREW SIFUENTES Computed Tomography ACCESSION EXAM DATE/TIME PROCEDURE ORDERING PROVIDER [id number] 10/26/2021 11:[address] Head or Brain w/o JUNIE PINEDA ALLISON Contrast CPT code 74273 Reason For Exam (CT Head or Brain w/o Contrast) hydrocephalus. thank you Report CLINICAL INFORMATION: Hydrocephalus. Shunt. 3 mm axial cuts through the head are obtained without IV contrast. The examination is compared to a previous study dated 06/29/2014. FINDINGS: Old NURSING COORDINATOR shunt tubing is noted bilaterally. The new [...] are clear. IMPRESSION: 1. Old and new NURSING COORDINATOR shunt tubing. 2. No hydrocephalus. 3. Atrophy and evidence of small-vessel ischemic disease. 4. No CT evidence of an acute intracranial process. Report Dictated on --- Final --- Dictating Physician: MD SOLANO JEFFREY Signed Date and Time: 10/26/2021 11:42 am Signed by: MD SOLANO JEFFREY Transcribed Date and Time: 10/26/2021 11:43 [facility] Albert Solano MD - 10/26/2021 [id number] Computed Tomography ACCESSION EXAM DATE/TIME PROCEDURE ORDERING PROVIDER [id number] 10/26/2021 11:[address] Head or Brain w/o JUNIE PINEDA ALLISON Contrast CPT code 30777 Reason For Exam (CT Head or Brain w/o Contrast) hydrocephalus. thank you Report CLINICAL INFORMATION: Hydrocephalus. Shunt. 3 mm axial cuts through the head are obtained without IV contrast. The examination is compared to a previous study dated 06/29/2014. FINDINGS: Old NURSING COORDINATOR shunt tubing is noted bilaterally. The new [...] are clear. IMPRESSION: 1. Old and new NURSING COORDINATOR shunt tubing. 2. No hydrocephalus. 3. Atrophy [...] Tomography ACCESSION EXAM DATE/TIME PROCEDURE ORDERING PROVIDER [id number] 10/26/2021 11:[address] Head or Brain w/o JUNIE PINEDA, SARINA Contrast CPT code 85923 Reason For Exam (CT Head or Brain w/o Contrast) hydrocephalus. thank you Report CLINICAL INFORMATION: Hydrocephalus. Shunt. 3 mm axial cuts through the head are obtained without IV contrast. The examination is compared to a previous study dated 06/29/2014. FINDINGS: Old NURSING COORDINATOR shunt tubing is noted bilaterally. The new [...] are clear. IMPRESSION: 1. Old and new NURSING COORDINATOR shunt tubing. 2. No hydrocephalus. 3. Atrophy and evidence of small-vessel ischemic disease. 4. No CT evidence of an acute intracranial process. Report Dictated on Final Dictating Physician: MD SOLANO JEFFREY Signed Date and Time: 10/26/2021 11:42 am Signed by: MD SOLANO JEFFREY Transcribed Date and Time: 10/26/2021 11:43 Normal [facility] EEG awake and asleepon 10-26 Bony Tompkins MD 10/26/2021 4:06 PM [facility] [address] [place] [address] ROUTINE EEG REPORT Patient Name: Andrew Sifuentes : 1950 Date of Study: 10/26/2021 Duration Recorded: 23 minutes EEG#: [id number] INSERTER OPERATOR: CASTRO PROVIDER REQUESTING STUDY: Dr. Barreto REASON FOR EXAM: seizures HISTORY: Andrew Sifuentes is a 71 y.o. male with history of obstructive hydrocephalus s/p NURSING COORDINATOR shunt in 1987, needing multiple revisions and [...] normal limits and both old and new NURSING COORDINATOR shunt tubing noted. At present patient is awake, follows commands, was able to tell his name, and that he was in hospital but not oriented to time. Per documentation patient had NCSE in May 2021, was on Vimpat, but it was discontinued as there was no evidence of recurrent seizures in July 2021 by Neurology at [facility], per daughter patient was on Dilantin for 31 yrs. Per daughter patient had seizures in the past and also felt he had staring episodes this morning. Per daughter patient has been essentially bed bound in [place] since May 2021 but prior to that [...] study with video was carried out at [facility]. Scalp electrodes were positioned in person by an medicine technologist, following patient education, according to the 10-20 International system of electrode placement and maintained for integrity and quality of the recording. EEG data with video was recorded continuously and digitally stored. The medicine technologist reviewed all automated detections and manual [...] No normal vari (more content not included)... [facility] Work Phone: [facility] Work Phone: No Panel Informationon 10-26 Radiology Study observation (narrative) [facility] Work Phone: Prothrombin Timeon 2 INR 1.9 High 0.9-1.1 [facility] Comment on above: Result Comment: Harry mmended [...] Infarction Performed By: #### C OVAG #### [facility] [address] [place] [address] PT Coag (PPP) [Time] 19.7 s High 9.0-12.0 [facility] Comment on above: Result Comment: . Performed By: #### C OVAG #### [facility] [place] [facility] [address] [place] [address] Protime-INRon 10-26-2021 INR Coag (Bld) [Relative time] [...] s High 9.0 - 12.0 s [facility] Work Phone: Comment on above: . Test Performed by [facility], [address] [place], [place] [id number] [place] [address] LAB [facility] [...] or absence of malignant disease. Performed By: [place] [address] Accordion Tuner: Quiana Castro MD Result Comment: INTE RPRETIVE [...] or absence of malignant disease. Performed By: [place] [address] [employer]ordion Tuner: Quiana Castro MD Performed By: #### C OVAG #### [facility] [place] [facility] [address] [place] [address] Cancer Antigen 19-9on 2021 [facility] Work Phone: Prothrombin Timeon INR 1.5 High 0.9-1.1 [facility] [place] [facility] Comment on above: [...] Infarction Performed By: #### P T #### [facility] [place] [facility] [address] [place] [address] PT Coag (PPP) [Time] 15.6 s High 9.0-12.0 [facility] [place] [facility] Comment on above: Result Comment: . Performed By: #### P T #### [facility] [place] [facility] [address] [place] [address] Protime-INRon 10-25-2021 INR Coag (Bld) [Relative time] [...] [facility] Work Phone: PT Coag (PPP) [Time] 15.6 s High 9.0 - 12.0 s [facility] Work Phone: Comment on above: . Test Performed by [facility], [address] [place], [place] [address] [facility] LAB [facility] Work Phone: B-2 Glycoprotein (IGA)on Beta-2 Glyco 1 IgA <2.0 U/mL [facility] Work Phone: Comment on above: Interpretive Informa tion: Results equal to or greater than 20 U/mL = POSITIVE Results less than 20 U/mL = NEGATIVE B2 Glycoprotein I (IgM) Abon 10-24-2021 Beta-2 Glyco 1 IgM <1.5 U/mL [facility] Work Phone: Comment on above: Interpretive Informa tion: Results equal to or greater than 20 U/mL = POSITIVE Results less than 20 U/mL = NEGATIVE B2 Glycoprotein I Igg Abon 0 10-24-2021 Beta-2 Glyco 1 IgG <1.4 U/mL [facility] Work Phone: Comment on above: Interpretive Informa tion: Results equal to or greater than 20 U/mL = POSITIVE Results less than 20 U/mL = NEGATIVE Basic Metabolic Panelon 10-06 Anion gap [Moles/Vol] 8 mmol/L Normal 3-13 [facility] Comment on above: Performed By: #### C A19O, LUPUS #### The performing lab is in the report. #### NSEO #### [facility] #### HEMDF, LDH3, BMP3, MG3, PT, CEA2 #### [facility] [address] [place] [address] #### B2GPM, B2GPA, B2GPG #### [facility] [address] [place] [address] Calcium [Mass/Vol] 8.8 mg/dL Normal 8.4-10.4 [facility] Comment on above: Performed By: #### C A19O, LUPUS #### The performing lab is in the report. #### NSEO #### [facility] #### HEMDF, LDH3, BMP3, MG3, PT, CEA2 #### [facility] [address] [place] [address] #### B2GPM, B2GPA, B2GPG #### [address] CO2 [Moles/Vol] 25 mmol/L Normal 22-30 [facility] Comment on above: Performed By: #### C A19O, LUPUS #### The performing lab is in the report. #### NSEO #### [facility] #### HEMDF, LDH3, BMP3, MG3, PT, CEA2 #### [facility] [address] [place] [address] #### B2GPM, B2GPA, B2GPG #### [address] Creatinine [Mass/Vol] 0.74 mg/dL Normal 0.52-1.25 [facility] Comment on above: Performed By: #### C A19O, LUPUS #### The performing lab is in the report. #### NSEO #### [facility] #### HEMDF, LDH3, BMP3, MG3, PT, CEA2 #### [place] [address] [place] [address] #### B2GPM, B2GPA, B2GPG #### [address] eGFR OTHER > 90.0 Normal >60 [facility] Comment on above: Result Comment: KDIG [...] HEMDF, LDH3, BMP3, MG3, PT, CEA2 #### [facility] [address] [place] [address] #### B2GPM, B2GPA, B2GPG #### [address] GFR/1.73 sq M.predicted among blacks MDRD (S/P/Bld) [Vol rate/Area] mL/min/{1.73_m2} Normal >60 [facility] Comment on above: Performed By: #### C Mary LouO, LUPUS #### The performing lab is in the report. #### NSEO #### [facility] #### HEMDF, LDH3, BMP3, MG3, PT, CEA2 #### [facility] [address] [place] [address] #### B2GPM, B2GPA, B2GPG #### [address] Glucose [Mass/Vol] 116 mg/dL High 70-100 [facility] Comment on above: Performed By: #### C A19O, LUPUS #### The performing lab is in the report. #### NSEO #### [facility] #### HEMDF, LDH3, BMP3, MG3, PT, CEA2 #### [facility] [address] [place] [address] #### B2GPM, B2GPA, B2GPG #### [address] Urea nitrogen [Mass/Vol] 19 mg/dL High 7-17 [facility] Comment on above: Performed By: #### C A19O, LUPUS #### The performing lab is in the report. #### NSEO #### [facility] #### HEMDF, LDH3, BMP3, MG3, PT, CEA2 #### [place] [address] [place] [address] #### B2GPM, B2GPA, B2GPG #### [address] Chloride [Moles/Vol] 107 mmol/L Normal 98-107 [facility] Comment on above: Performed By: #### C A19O, LUPUS #### The performing lab is in the report. #### NSEO #### [facility] #### HEMDF, LDH3, BMP3, MG3, PT, CEA2 #### [place] [address] [place] [address] #### B2GPM, B2GPA, B2GPG #### [address] Potassium [Moles/Vol] 3.9 mmol/L Normal 3.5-5.1 [facility] Comment on above: Performed By: #### C A19O, LUPUS #### The performing lab is in the report. #### NSEO #### [facility] #### HEMDF, LDH3, BMP3, MG3, PT, CEA2 #### [address] [place] [address] #### B2GPM, B2GPA, B2GPG #### [address] Sodium [Moles/Vol] 140 mmol/L Normal 135-145 [facility] Comment on above: Performed By: #### C A19O, LUPUS #### The performing lab is in the report. #### NSEO #### [facility] #### HEMDF, LDH3, BMP3, MG3, PT, CEA2 #### [place] [address] [place] [address] #### B2GPM, B2GPA, B2GPG #### [address] [phone] Anion gap [Moles/Vol] 8 mmol/L 3 - [...] 17 mg/dL [facility] Test Performed by [facility], [address] [place], [place], [place] [id number] [place] [address] LAB [facility] Beta-2 Glycoprotein I IgAon 06-20-2022 Beta-2 Glycoprotein I IgA < 2.0 Normal [facility] Comment on above: Result Comment: Inte rpretive Information: Results equal to or greater than 20 U/mL = POSITIVE Results less than 20 U/mL = NEGATIVE Performed By: #### C OVAG #### [facility] [address] [place] [address] Beta-2 Glycoprotein I IgGon 10-24-2021 Beta-2 Glycoprotein I IgG < 1.4 Normal [facility] Comment on above: Result Comment: Inte rpretive Information: Results equal to or greater than 20 U/mL = POSITIVE Results less than 20 U/mL = NEGATIVE Performed By: #### C OVAG #### [facility] [address] [place] [address] Beta-2 Glycoprotein I IgMon 10-24-2021 Beta-2 Glycoprotein I IgM < 1.5 Normal [facility] Comment on above: Result Comment: Inte rpretive Information: Results equal to or greater than 20 U/mL = POSITIVE Results less than 20 U/mL = NEGATIVE Performed By: #### C OVAG #### [facility] [address] [place] [address] No Panel Informationon 10-24 [facility] Test Performed by [facility], [address] [place] [id number] [place] [address] LAB [facility] Work Phone: PROTEIN C FUNCTIONALon 10-24 Interpretation and review of laboratory results Abnormal [facility] Protein C-Functional 185 % High 83 - [...] reference intervals for this test in the [facility] Test Directory ([employer]). Performed by [employer], [address] [place] [address] www.[email or web address], Quiana Castro MD - Lab. Director Protein C, Functionalon 10-06 Protein C, Functional 185 % High 83-168 [facility] Comment on above: Result Comment: INTE RPRETIVE [...] reference intervals for this test in the [facility] Test Directory ([employer]). Performed by [employer], [address] [place] [address] www.[email or web address], Quiana Castro MD - Lab. Director Performed By: #### P T #### [facility] [address] [place] [address] Protein S, Functionalon 06-2 Protein S, Functional 138 % Normal 66-143 [facility] Comment on above: INTERPRETIVE INFORMA [...] reference intervals for this test in the [facility] Test Directory ([employer]). Performed by [employer], [address] [place] [address] www.[email or web address], Quiana Castro MD - Lab. Director Result [...] reference intervals for this test in the [facility] Test Directory ([employer]). Performed by [employer], [address],[place] [id number] www.[email or web address], Quiana Castro MD - Lab. Director Performed By: #### P T #### [facility] [address] [place] [place] [address] Prothrombin Timeon INR 1.2 High 0.9-1.1 [facility] Comment on above: Result Comment: Harry [...] HEMDF, LDH3, BMP3, MG3, PT, CEA2 #### [place] [address] [place] [address] #### B2GPM, B2GPA, B2GPG #### [address] [phone] PT Coag (PPP) [Time] 12.6 s High 9.0-12.0 [facility] Comment on above: Result Comment: . Performed By: #### C A19O, LUPUS #### The performing lab is in the report. #### NSEO #### [facility] #### HEMDF, LDH3, BMP3, MG3, PT, CEA2 #### [address] [place] [address] #### B2GPM, B2GPA, B2GPG #### [address] [phone] Protime-INRon 10-24-2021 INR Coag (Bld) [Relative time] [...] s High 9.0 - 12.0 s [facility] Comment on above: . Test Performed by [facility], [address] LAB [facility] Basic Metabolic Panelon 10-05 Anion gap [Moles/Vol] 10 mmol/L Normal 3-13 [facility] Comment on above: Performed By: #### C A19O, LUPUS #### The performing lab is in the report. #### NSEO #### [facility] #### HEMDF, LDH3, BMP3, MG3, PT, CEA2 #### [place] [address] [place] [address] #### B2GPM, B2GPA, B2GPG #### [address] [address] Calcium [Mass/Vol] 9.6 mg/dL Normal 8.4-10.4 [facility] Comment on above: Performed By: #### C A19O, LUPUS #### The performing lab is in the report. #### NSEO #### [facility] #### HEMDF, LDH3, BMP3, MG3, PT, CEA2 #### [facility] [address] [place] [address] #### B2GPM, B2GPA, B2GPG #### [address] [address] CO2 [Moles/Vol] 27 mmol/L Normal 22-30 [facility] Comment on above: Performed By: #### C A19O, LUPUS #### The performing lab is in the report. #### NSEO #### [facility] #### HEMDF, LDH3, BMP3, MG3, PT, CEA2 #### [address] [place] [address] #### B2GPM, B2GPA, B2GPG #### [address] Glucose [Mass/Vol] 109 mg/dL High 70-100 [facility] Comment on above: Performed By: #### C A19O, LUPUS #### The performing lab is in the report. #### NSEO #### [facility] #### HEMDF, LDH3, BMP3, MG3, PT, CEA2 #### [address] [place] [address] #### B2GPM, B2GPA, B2GPG #### [address] Urea nitrogen [Mass/Vol] 18 mg/dL High 7-17 [facility] Comment on above: Performed By: #### C A19O, LUPUS #### The performing lab is in the report. #### NSEO #### [facility] #### HEMDF, LDH3, BMP3, MG3, PT, CEA2 #### [address] [place] [address] #### B2GPM, B2GPA, B2GPG #### [address] Creatinine [Mass/Vol] 0.82 mg/dL Normal 0.52-1.25 [facility] Comment on above: Performed By: #### C A19O, LUPUS #### The performing lab is in the report. #### NSEO #### [facility] #### HEMDF, LDH3, BMP3, MG3, PT, CEA2 #### [address] [place] [address] #### B2GPM, B2GPA, B2GPG #### [address] GFR/1.73 sq M.predicted among blacks MDRD (S/P/Bld) [Vol rate/Area] mL/min/{1.73_m2} Normal >60 [facility] Comment on above: Performed By: #### C A19O, LUPUS #### The performing lab is in the report. #### NSEO #### [facility] #### HEMDF, LDH3, BMP3, MG3, PT, CEA2 #### [facility] [address] [place] [address] #### B2GPM, B2GPA, B2GPG #### [facility] [address] [place] [address] GFR/1.73 sq M.predicted among non-blacks MDRD (S/P/Bld) [Vol rate/Area] 89.9 mL/min/{1.73_m2} Normal >60 [facility] Comment on above: Result Comment: KDIG [...] HEMDF, LDH3, BMP3, MG3, PT, CEA2 #### [facility] [address] [place] [address] #### B2GPM, B2GPA, B2GPG #### [facility] [address] [place] [address] Chloride [Moles/Vol] 104 mmol/L Normal 98-107 [facility] Comment on above: Performed By: #### C A19O, LUPUS #### The performing lab is in the report. #### NSEO #### [facility] #### HEMDF, LDH3, BMP3, MG3, PT, CEA2 #### [place] [address] [place] [address] #### B2GPM, B2GPA, B2GPG #### [address] Potassium [Moles/Vol] 3.9 mmol/L Normal 3.5-5.1 [facility] Comment on above: Performed By: #### C A19O, LUPUS #### The performing lab is in the report. #### NSEO #### [facility] #### HEMDF, LDH3, BMP3, MG3, PT, CEA2 #### [place] [address] [place] [address] #### B2GPM, B2GPA, B2GPG #### [address] Sodium [Moles/Vol] 142 mmol/L Normal 135-145 [facility] Comment on above: Performed By: #### C A19O, LUPUS #### The performing lab is in the report. #### NSEO #### [facility] #### HEMDF, LDH3, BMP3, MG3, PT, CEA2 #### [place] [address] [place] [address] #### B2GPM, B2GPA, B2GPG #### [address] Anion gap [Moles/Vol] 10 mmol/L 3 - 13 mmol/L [facility] Work Phone: Calcium [Mass/Vol] 9.6 mg/dL 8.4 - 10. 4 mg/dL [facility] Work Phone: [phone] Chloride [Moles/Vol] 104 mmol/L 98 - 10 7 mmol/L [facility] Work Phone: [phone] CO2 [Moles/Vol] 27 mmol/L 22 - 30 mmol/L [facility] Work Phone: Creatinine [Mass/Vol] 0.82 mg/dL 0.52 - 1.25 mg/dL [facility] Work Phone: EGFR IF NonAfrican [place]dean 89.9 mL/min >60 [facility] Work Phone: [phone] Comment on above: KDIGO guidelines pro [...] MDRD (S/P/Bld) [Vol rate/Area] mL/min/{1.73_m2} >60 mL/min [facility] Work Phone: [phone] Glucose [Mass/Vol] 109 mg/dL High 70 - 100 mg/dL [facility] Work Phone: [phone] Interpretation and review of laboratory results Abnormal [facility] Work Phone: [phone] Potassium [Moles/Vol] 3.9 mmol/L 3.5 - 5.1 mmol/L [facility] Work Phone: Sodium [Moles/Vol] 142 mmol/L 135 - 145 mmol/L [facility] Work Phone: Urea nitrogen (BldV) [Mass/Vol] 18 mg/dL High 7 - 17 mg/dL [facility] Work Phone: CBC with Auto Differentialon 10-23-2021 [...] (Bld) 3.9 % 1.0 - 6.0 % [facility] Work Phone: [phone] Granulocytes/100 WBC (Bld) 64.0 % 40.0 - 80.0 % [facility] Work Phone: [phone] Hematocrit (Bld) [Volume fraction] 35.1 % Low 40.0 - 52.0 % [facility] Work Phone: [phone] Hemoglobin (Bld) [Mass/Vol] 11.6 g/dL Low 13.0 - 18.0 g/dL [facility] Work Phone: [phone] Interpretation and review of laboratory results Abnormal [facility] Work Phone: [phone] Lymphocytes (Bld) [#/Vol] 2.6 10*3/uL 1.0 - 4.3 10*3/uL [facility] Work Phone: [phone] Lymphocytes/100 WBC (Bld) 25.0 % 20.0 - 40.0 % [facility] Work Phone: [phone] MCH (RBC) [Entitic mass] 28.4 pg 26.0 - 34.0 pg [facility] Work Phone: [phone] MCHC (RBC) [Mass/Vol] 33.1 % 32.0 - 36.0 % [facility] Work Phone: [phone] MCV (RBC) [Entitic vol] 85.9 fL 80.0 - 98.0 fL [employer] Work Phone: [phone] Monocytes (Bld) [#/Vol] [...] 450 10*3/uL High 140 - 440 10*3/uL [facility] Work Phone: [phone] RBC (Bld) [#/Vol] 4.08 10*6/uL Low 4.40 - 5.9 0 10*6/uL [facility] Work Phone: [phone] WBC (Bld) [#/Vol] 10.3 10*3/uL 3.6 - 10.7 10*3/uL [facility] Work Phone: [phone] Test Performed by [facility], [address] LAB [facility] Work Phone: [phone] CEAon 10-23-2021 CEA 0.8 ng/mL 0.0 - 3.0 ng/mL [facility] Work Phone: [phone] Test Performed by [facility] [place] [facility], [address] LAB [facility] Work Phone: [phone] Carcinoembryonic Agon 2021 Carcinoembryonic Ag. 0.8 ng/mL Normal 0.0-3.0 [facility] [place] [facility] Comment on above: Performed By: #### C A19O, LUPUS #### The performing lab is in the report. #### NSEO #### [facility] #### HEMDF, LDH3, BMP3, MG3, PT, CEA2 #### [facility] [place] [facility] [address] [place] [address] #### B2GPM, B2GPA, B2GPG #### [address] Hemogram w/ Autodiffon 10-23 Abs Baso Cnt 0.1 10*3/uL Normal 0.0-0.2 [facility] Comment on above: Performed By: #### C A19O, LUPUS #### The performing lab is in the report. #### NSEO #### [facility] #### HEMDF, LDH3, BMP3, MG3, PT, CEA2 #### [facility] [address] [place], [place] #### B2GPM, B2GPA, B2GPG #### [address] Abs Neutrophile Cnt 6.6 10*3/uL Normal 1.8-7.0 [facility] Comment on above: Performed By: #### C A19O, LUPUS #### The performing lab is in the report. #### NSEO #### [facility] #### HEMDF, LDH3, BMP3, MG3, PT, CEA2 #### [facility] [address] [place], [place] #### B2GPM, B2GPA, B2GPG #### [address] Basophils/100 WBC (Bld) 1.1 % Normal 0.0-2.0 [facility] Comment on above: Performed By: #### C A19O, LUPUS #### The performing lab is in the report. #### NSEO #### [facility] #### HEMDF, LDH3, BMP3, MG3, PT, CEA2 #### [facility] [address] [place] #### B2GPM, B2GPA, B2GPG #### [address] Eosinophils (Bld) [#/Vol] 0.4 10*3/uL Normal 0.0-0.5 [facility] Comment on above: Performed By: #### C A19O, LUPUS #### The performing lab is in the report. #### NSEO #### [facility] #### HEMDF, LDH3, BMP3, MG3, PT, CEA2 #### [facility] [address] [place] [address] #### B2GPM, B2GPA, B2GPG #### [address] [address] Eosinophils/100 WBC (Bld) 3.9 % Normal 1.0-6.0 [facility] Comment on above: Performed By: #### C A19O, LUPUS #### The performing lab is in the report. #### NSEO #### [facility] #### HEMDF, LDH3, BMP3, MG3, PT, CEA2 #### [facility] [address] [place] [address] #### B2GPM, B2GPA, B2GPG #### [address] [address] Erythrocyte distribution width (RBC) [Ratio] 17.4 % High 11.5-14.5 [facility] Comment on above: Performed By: #### C A19O, LUPUS #### The performing lab is in the report. #### NSEO #### [facility] #### HEMDF, LDH3, BMP3, MG3, PT, CEA2 #### [facility] [address] [place] [address] #### B2GPM, B2GPA, B2GPG #### [address] [address] Granulocytes/100 WBC (Bld) 64.0 % Normal 40.0-80.0 [facility] Comment on above: Performed By: #### C A19O, LUPUS #### The performing lab is in the report. #### NSEO #### [facility] #### HEMDF, LDH3, BMP3, MG3, PT, CEA2 #### [place] [address] [place] #### B2GPM, B2GPA, B2GPG #### [address] Hematocrit (Bld) [Volume fraction] 35.1 % Low 40.0-52.0 [facility] Comment on above: Performed By: #### C A19O, LUPUS #### The performing lab is in the report. #### NSEO #### [facility] #### HEMDF, LDH3, BMP3, MG3, PT, CEA2 #### [address] [place] #### B2GPM, B2GPA, B2GPG #### [address] Hemoglobin (Bld) [Mass/Vol] 11.6 g/dL Low 13.0-18.0 [facility] Comment on above: Performed By: #### C A19O, LUPUS #### The performing lab is in the report. #### NSEO #### [facility] #### HEMDF, LDH3, BMP3, MG3, PT, CEA2 #### [address] [place] #### B2GPM, B2GPA, B2GPG #### [address] Lymphocytes (Bld) [#/Vol] 2.6 10*3/uL Normal 1.0-4.3 [facility] Comment on above: Performed By: #### C A19O, LUPUS #### The performing lab is in the report. #### NSEO #### [facility] #### HEMDF, LDH3, BMP3, MG3, PT, CEA2 #### [address] [place] #### B2GPM, B2GPA, B2GPG #### [address] Lymphocytes/100 WBC (Bld) 25.0 % Normal 20.0-40.0 [facility] Comment on above: Performed By: #### C A19O, LUPUS #### The performing lab is in the report. #### NSEO #### [facility] #### HEMDF, LDH3, BMP3, MG3, PT, CEA2 #### [facility] [address] [place] [address] #### B2GPM, B2GPA, B2GPG #### [address] MCH (RBC) [Entitic mass] 28.4 pg Normal 26.0-34.0 [facility] Comment on above: Performed By: #### C A19O, LUPUS #### The performing lab is in the report. #### NSEO #### [facility] #### HEMDF, LDH3, BMP3, MG3, PT, CEA2 #### [facility] [address] [place], [place] #### B2GPM, B2GPA, B2GPG #### [address] MCHC 33.1 % Normal 32.0-36.0 [facility] Comment on above: Performed By: #### C A19O, LUPUS #### The performing lab is in the report. #### NSEO #### [facility] #### HEMDF, LDH3, BMP3, MG3, PT, CEA2 #### [facility] [address] [place], [place] #### B2GPM, B2GPA, B2GPG #### [address] MCV (RBC) [Entitic vol] 85.9 fL Normal 80.0-98.0 [facility] Comment on above: Performed By: #### C A19O, LUPUS #### The performing lab is in the report. #### NSEO #### [facility] #### HEMDF, LDH3, BMP3, MG3, PT, CEA2 #### [place] [address] [place] #### B2GPM, B2GPA, B2GPG #### [address] Monocytes (Bld) [#/Vol] 0.6 10*3/uL Normal 0.0-0.8 [facility] Comment on above: Performed By: #### C A19O, LUPUS #### The performing lab is in the report. #### NSEO #### [facility] #### HEMDF, LDH3, BMP3, MG3, PT, CEA2 #### [address] [place] #### B2GPM, B2GPA, B2GPG #### [address] Monocytes/100 WBC (Bld) 6.0 % Normal 2.0-10.0 [facility] Comment on above: Performed By: #### C A19O, LUPUS #### The performing lab is in the report. #### NSEO #### [facility] #### HEMDF, LDH3, BMP3, MG3, PT, CEA2 #### [address] [facility] [place] #### B2GPM, B2GPA, B2GPG #### [address] Platelet mean volume (Bld) [Entitic vol] 8.1 fL Normal 7.4-12.4 [facility] Comment on above: Result Comment: MPV is a calculated measurement using platelet volume ratio. Performed By: #### C A19O, LUPUS #### The performing lab is in the report. #### NSEO #### [facility] #### HEMDF, LDH3, BMP3, MG3, PT, CEA2 #### [place] [address] [place] #### B2GPM, B2GPA, B2GPG #### [place] [address] [place], [place] Platelets (Bld) [#/Vol] 450 10*3/uL High 140-440 [facility] Comment on above: Performed By: #### C A19O, LUPUS #### The performing lab is in the report. #### NSEO #### [facility] #### HEMDF, LDH3, BMP3, MG3, PT, CEA2 #### [facility] [address] [place], [place] #### B2GPM, B2GPA, B2GPG #### [address] RBC (Bld) [#/Vol] 4.08 10*6/uL Low 4.40-5.90 [facility] Comment on above: Performed By: #### C A19O, LUPUS #### The performing lab is in the report. #### NSEO #### [facility] #### HEMDF, LDH3, BMP3, MG3, PT, CEA2 #### [facility] [address] [place], [place] #### B2GPM, B2GPA, B2GPG #### [address] WBC (Bld) [#/Vol] 10.3 10*3/uL Normal 3.6-10.7 [facility] Comment on above: Performed By: #### C A19O, LUPUS #### The performing lab is in the report. #### NSEO #### [facility] #### HEMDF, LDH3, BMP3, MG3, PT, CEA2 #### [facility] [address] [place] [address] #### B2GPM, B2GPA, B2GPG #### [address] LDHon 10-23-2021 LDH 136 U/L Normal 120-246 [facility] Comment on above: Performed By: #### C A19O, LUPUS #### The performing lab is in the report. #### NSEO #### [facility] #### HEMDF, LDH3, BMP3, MG3, PT, CEA2 #### [email or web address] [address] [place] [address] #### B2GPM, B2GPA, B2GPG #### [email or web address] [address] [place] [address] Lactate Dehydrogenaseon - LD 136 U/L 120 - 246 U/L [facility] Work Phone: MRI ABDOMEN WO CONTRASTon Patient Name: ANDREW SIFUENTES Magnetic Resonance Imaging ACCESSION EXAM DATE/TIME PROCEDURE ORDERING PROVIDER [id number] 10/23/2021 11:08 EDT MRI Abdomen w/o Contrast DONOVAN SRIVASTAVAW CPT code 55030 Reason For Exam (MRI Abdomen w/o Contrast) [...] Imaging ACCESSION EXAM DATE/TIME PROCEDURE ORDERING PROVIDER [id number] 10/23/2021 11:08 EDT MRI Abdomen w/o Contrast WING SRIVASTAVA CPT code 70266 Reason For Exam (MRI Abdomen w/o Contrast) [...] CONTRASTOrder ed By: Unknown Result on 10-23-2021 [facility] w/o Contraston 0 10-23-2021 MRI Abdomen w/o Contrast Patient Name: [facility]ES [id number] Magnetic Resonance Imaging ACCESSION EXAM DATE/TIME PROCEDURE ORDERING PROVIDER [id number] 10/23/2021 11:08 EDT MRI Abdomen w/o Contrast WING SRIVASTAVA CPT code 47920 Reason For Exam (MRI Abdomen w/o Contrast) [...] Transcribed Date and Time: 10/23/2021 4:36 Normal [facility] Magnesiumon 10-23-2021 Magnesium [Mass/Vol] 2.1 mg/dL Normal 1.6-2.3 [facility] Comment on above: Performed By: #### C A19O, LUPUS #### The performing lab is in the report. #### NSEO #### [facility] #### HEMDF, LDH3, BMP3, MG3, PT, CEA2 #### [facility] [address] [place] [address] #### B2GPM, B2GPA, B2GPG #### [address] [address] Magnesium [Mass/Vol] 2.1 mg/dL 1.6 - 2 .3 mg/dL [facility] Work Phone: No Panel Informationon 10-23 Test Performed by [facility], [address] [place] [id number] [place] [address] LAB [facility] Work Phone: Prothrombin Timeon 2 INR 1.1 Normal 0.9-1.1 [facility] Comment on above: Result Comment: Harry [...] HEMDF, LDH3, BMP3, MG3, PT, CEA2 #### [address] [place] [address] #### B2GPM, B2GPA, B2GPG #### [address] [address] PT Coag (PPP) [Time] 12.2 s High 9.0-12.0 [facility] Comment on above: Result Comment: . Performed By: #### C A19O, LUPUS #### The performing lab is in the report. #### NSEO #### [facility] #### HEMDF, LDH3, BMP3, MG3, PT, CEA2 #### [address] [place] [address] #### B2GPM, B2GPA, B2GPG #### [address] [address] Protime-INRon 10-23-2021 INR Coag (Bld) [Relative time] [...] s High 9.0 - 12.0 s [facility] Work Phone: Comment on above: . Test Performed by [facility], [address] [place] [address] [facility] LAB [facility] Work Phone: Basic Metabolic Panelon 10-05-2021 Calcium [Mass/Vol] 8.9 mg/dL Normal 8.4-10.4 [facility] Comment on above: Performed By: #### P T #### [facility] [address] [place] [address] Glucose [Mass/Vol] 110 mg/dL High 70-100 [facility] Comment on above: Performed By: #### P T #### [facility] [address] [place] [address] Urea nitrogen [Mass/Vol] 14 mg/dL Normal 7-17 [facility] Comment on above: Performed By: #### P T #### [facility] [address] [place] [address] Anion gap [Moles/Vol] 7 mmol/L Normal 3-13 [facility] Comment on above: Performed By: #### P T #### [facility] [address] [place] [address] CO2 [Moles/Vol] 26 mmol/L Normal 22-30 [facility] Comment on above: Performed By: #### P T #### [facility] [address] [place] [address] Creatinine [Mass/Vol] 0.71 mg/dL Normal 0.52-1.25 [facility] Comment on above: Performed By: #### P T #### [facility] [address] [place] [address] eGFR OTHER > 90.0 Normal >60 [facility] Comment on above: Result Comment: KDIG [...] secretion. Performed By: #### P T #### [facility] [address] [place] [address] GFR/1.73 sq M.predicted among blacks MDRD (S/P/Bld) [Vol rate/Area] mL/min/{1.73_m2} Normal >60 [facility] Comment on above: Performed By: #### P T #### [facility] [address] [place] [address] Potassium [Moles/Vol] 3.8 mmol/L Normal 3.5-5.1 [facility] Comment on above: Performed By: #### P T #### [facility] [address] [place] [address] Chloride [Moles/Vol] 106 mmol/L Normal 98-107 [facility] Comment on above: Performed By: #### P T #### [facility] [address] [place] [address] Sodium [Moles/Vol] 139 mmol/L Normal 135-145 [facility] Comment on above: Performed By: #### P T #### [place] [address] [place] [address] Anion gap [Moles/Vol] 7 mmol/L 3 - 13 mmol/L [facility] Calcium [Mass/Vol] 8.9 mg/dL 8.4 - 10. 4 mg/dL [facility] Chloride [Moles/Vol] 106 mmol/L 98 - 10 7 mmol/L [facility] CO2 [Moles/Vol] 26 mmol/L 22 - 30 mmol/L [facility] Creatinine [Mass/Vol] 0.71 mg/dL 0.52 - 1.25 mg/dL [facility] EGFR IF NonAfrican [place]dean >90.0 >60 [...] 10.7 10*3/uL [facility] Test Performed by [facility], [address] [place], [place] [id number] [place] [address] [address] [facility] Pelvis Wo Umair johnston 10-22-2021 Patient Name: ANDREW SIFUENTES Computed Tomography ACCESSION EXAM DATE/TIME PROCEDURE ORDERING PROVIDER [id number] 10/22/2021 13:[address] Abdomen/Pelvis (No WING SRIVASTAVA PO, No IV) CPT code 74405 Reason For Exam (CT Abdomen/Pelvis (No PO, [...] HARLAN Transcribed Date and Time: 10/22/2021 2:37 [facility] Humphrey Melton MD - 10/22/2021 Patient Name: ANDREW SIFUENTES Computed Tomography ACCESSION EXAM DATE/TIME PROCEDURE ORDERING PROVIDER [id number] 10/22/2021 13:[address] Abdomen/Pelvis (No SRIVASTAVA, WING PO, No IV) CPT code 17830 Reason For Exam (CT Abdomen/Pelvis (No PO, [...] Tomography ACCESSION EXAM DATE/TIME PROCEDURE ORDERING PROVIDER [id number] 10/22/2021 13:[address] Abdomen/Pelvis (No SRIVASTAVA, WING PO, No IV) CPT code 95036 Reason For Exam (CT Abdomen/Pelvis (No PO, [...] Transcribed Date and Time: 10/22/2021 2:37 Normal [facility] Hemogram w/ Autodiffon 10-22 Abs Baso Cnt 0.1 10*3/uL Normal 0.0-0.2 [facility] Comment on above: Performed By: #### P T #### [facility] [address] [place] [address] Abs Neutrophile Cnt 6.0 10*3/uL Normal 1.8-7.0 [facility] Comment on above: Performed By: #### P T #### [facility] [address] [place] [address] Basophils/100 WBC (Bld) 1.0 % Normal 0.0-2.0 [facility] Comment on above: Performed By: #### P T #### [facility] [address] [place] [address] Eosinophils (Bld) [#/Vol] 0.3 10*3/uL Normal 0.0-0.5 [facility] Comment on above: Performed By: #### P T #### [facility] [address] [place] [address] Eosinophils/100 WBC (Bld) 3.0 % Normal 1.0-6.0 [facility] Comment on above: Performed By: #### P T #### [facility] [address] [place] [address] Erythrocyte distribution width (RBC) [Ratio] 17.1 % High 11.5-14.5 [facility] Comment on above: Performed By: #### P T #### [facility] [address] [place] [address] Granulocytes/100 WBC (Bld) 64.1 % Normal 40.0-80.0 [facility] Comment on above: Performed By: #### P T #### [facility] [address] [place] [address] Hematocrit (Bld) [Volume fraction] 33.4 % Low 40.0-52.0 [facility] Comment on above: Performed By: #### P T #### [facility] [address] [place] [address] Hemoglobin (Bld) [Mass/Vol] 10.9 g/dL Low 13.0-18.0 [facility] Comment on above: Performed By: #### P T #### [facility] [address] [place] [address] Lymphocytes (Bld) [#/Vol] 2.5 10*3/uL Normal 1.0-4.3 [facility] Comment on above: Performed By: #### P T #### [facility] [address] [place] [address] Lymphocytes/100 WBC (Bld) 26.3 % Normal 20.0-40.0 [facility] Comment on above: Performed By: #### P T #### [place] [address] [place] [address] MCH (RBC) [Entitic mass] 28.2 pg Normal 26.0-34.0 [facility] Comment on above: Performed By: #### P T #### [place] [address] [place] [address] MCHC 32.7 % Normal 32.0-36.0 [facility] Comment on above: Performed By: #### P T #### [facility] [address] [place] [address] MCV (RBC) [Entitic vol] 86.3 fL Normal 80.0-98.0 [facility] Comment on above: Performed By: #### P T #### [place] [address] [place] [address] Monocytes (Bld) [#/Vol] 0.5 10*3/uL Normal 0.0-0.8 [facility] Comment on above: Performed By: #### P T #### [facility] [address] [place] [address] Monocytes/100 WBC (Bld) 5.6 % Normal 2.0-10.0 [facility] Comment on above: Performed By: #### P T #### [place] [address] [place] [address] Platelet mean volume (Bld) [Entitic vol] 7.6 fL Normal 7.4-12.4 [facility] Comment on above: Result Comment: MPV is a calculated measurement using platelet volume ratio. Performed By: #### P T #### [place] [address] [place] [address] Platelets (Bld) [#/Vol] 369 10*3/uL Normal 140-440 [facility] Comment on above: Performed By: #### P T #### [facility] [address] [place] [address] RBC (Bld) [#/Vol] 3.87 10*6/uL Low 4.40-5.90 [facility] Comment on above: Performed By: #### P T #### [facility] [address] [place] [address] WBC (Bld) [#/Vol] 9.4 10*3/uL Normal 3.6-10.7 [facility] Comment on above: Performed By: #### P T #### [facility] [address] [place] [address] Magnesiumon 10-22-2021 Magnesium [Mass/Vol] 2.0 mg/dL Normal 1.6-2.3 [facility] Comment on above: Performed By: #### P T #### [facility] [address] [place] [address] Magnesium [Mass/Vol] 2.0 mg/dL 1.6 - 2 .3 mg/dL [facility] No Panel Informationon 10-22 Radiology Study observation (narrative) [facility] Work Phone: Test Performed by [facility], [address] [place] [address] [facility] Prothrombin Timeon 2 INR 1.1 Normal 0.9-1.1 [facility] Comment on above: Result Comment: Harry [...] HEMDF, LDH3, BMP3, MG3, PT, CEA2 #### [facility] [address] [place] [address] #### B2GPM, B2GPA, B2GPG #### [facility] [address] [place] [address] PT Coag (PPP) [Time] 11.8 s Normal 9.0-12.0 [facility] Comment on above: Result Comment: . Performed By: #### C A19O, LUPUS #### The performing lab is in the report. #### NSEO #### [facility] #### HEMDF, LDH3, BMP3, MG3, PT, CEA2 #### [facility] [address] [place] [address] #### B2GPM, B2GPA, B2GPG #### [facility] [address] [place] [address] Protime-INRon 10-22-2021 INR Coag (Bld) [Relative time] [...] [Time] 11.8 s 9.0 - 12.0 s [facility] Work Phone: Comment on above: . Test Performed by [facility] [place] [facility], [address] [place], [place] [address] [facility] Work Phone: VL Ankle Art Brachial Indice s Extremity Bilateralon 10-22-2021 [facility] Ankle Brachial Index Report Patient DO GurpreetB: 1950 Study 10/21/2021 Name: Andrew Gonzalez (71yrs) Date: Age: 71 Account: [id number] Gender: M Loc: 444W BP: Ordering Physician: Shruthi Malik Sludge Filtration Operator: Rody Cross RDMS, RVT Interpreting Physician: Carina Call Location: [facility] Indications: Foot wounds. Originally ordered as a full PVR. Ordering HOSPICE RN had to modify the order to ABIs [...] supine position. Images were obtained using a [employer] vascular ultrasound machine. Arterial pressure indices: + [...] HOSPITAL CARDIOLOGY Carina Call MD - 10/22/2021 [facility] Ankle Brachial Index Report Patient RADHA Sifuentes: 1950 Study 10/21/2021 Name: Andrew Gonzalez (71yrs) Date: Age: 71 Account: [id number] Gender: M Loc: 444W BP: Ordering Physician: Shruthi Malik Sludge Filtration Operator: Rody Cross RDMS, RVT Interpreting Physician: Carina Call Location: [facility] Indications: Foot wounds. Originally ordered as a full PVR. Ordering HOSPICE RN had to modify the order to ABIs [...] supine position. Images were obtained using a [employer] vascular ultrasound machine. Arterial pressure indices: + [...] by Carina Call 10/22/2021 13:21 [facility] Work Phone: [facility] Work Phone: Basic Metabolic Panelon 10-05 Calcium [Mass/Vol] 9.1 mg/dL Normal 8.4-10.4 [facility] Comment on above: Performed By: #### C OVAG #### [facility] [address] [place] [address] Anion gap [Moles/Vol] 6 mmol/L Normal 3-13 [facility] Comment on above: Performed By: #### C OVAG #### [facility] [place] [facility] [address] [place] [address] CO2 [Moles/Vol] 29 mmol/L Normal 22-30 [facility] Comment on above: Performed By: #### C OVAG #### [facility] [address] [place] [address] Creatinine [Mass/Vol] 0.90 mg/dL Normal 0.52-1.25 [facility] Comment on above: Performed By: #### C OVAG #### [facility] [address] [place] [address] GFR/1.73 sq M.predicted among blacks MDRD (S/P/Bld) [Vol rate/Area] mL/min/{1.73_m2} Normal >60 [facility] Comment on above: Performed By: #### C OVAG #### [facility] [address] [place] [address] GFR/1.73 sq M.predicted among non-blacks MDRD (S/P/Bld) [Vol rate/Area] 86.6 mL/min/{1.73_m2} Normal >60 [facility] Comment on above: Result Comment: KDIG [...] secretion. Performed By: #### C OVAG #### [facility] [address] [place] [address] Glucose [Mass/Vol] 106 mg/dL High 70-100 [facility] Comment on above: Performed By: #### C OVAG #### [facility] [address] [place] [address] Urea nitrogen [Mass/Vol] 18 mg/dL High 7-17 [facility] Comment on above: Performed By: #### C OVAG #### [facility] [address] [place] [address] Chloride [Moles/Vol] 105 mmol/L Normal 98-107 [facility] Comment on above: Performed By: #### C OVAG #### [facility] [address] [place] [address] Potassium [Moles/Vol] 4.3 mmol/L Normal 3.5-5.1 [facility] Comment on above: Performed By: #### C OVAG #### [facility] [address] [place] [address] Sodium [Moles/Vol] 139 mmol/L Normal 135-145 [facility] Comment on above: Performed By: #### C OVAG #### [facility] [address] [place] [address] Anion gap [Moles/Vol] 6 mmol/L 3 - 13 mmol/L [facility] Calcium [Mass/Vol] 9.1 mg/dL 8.4 - 10. 4 mg/dL [facility] Chloride [Moles/Vol] 105 mmol/L 98 - 10 7 mmol/L [facility] CO2 [Moles/Vol] 29 mmol/L 22 - 30 mmol/L [facility] Creatinine [Mass/Vol] 0.9 mg/dL 0.52 - 1.25 mg/dL [facility] EGFR IF NonAfrican [place]de[place] 86.6 mL/min >60 [facility] [...] 17 mg/dL [facility] Test Performed by [facility], [address] [place], [place], [place] [id number] [place] [address] LAB [facility] C-Reactive Proteinon 022 CRP [Mass/Vol] 33.5 mg/L High 0.0-9.9 [facility] Comment on above: Result Comment: . Performed By: #### P T #### [facility] [address] [place] [address] CRP [Mass/Vol] 33.5 mg/L High 0.0 - 9.9 mg/L [facility] Comment on above: . Interpretation and review of laboratory results Abnormal [facility] Test Performed by [facility], [address] [place], [address] LAB [facility] CR Calcaneus 2+ Views Lefton 10-21-2021 CR Calcaneus 2+ Views Left Patient Name: [facility]ES [id number] Diagnostic Radiology ACCESSION EXAM DATE/TIME PROCEDURE ORDERING PROVIDER [id number] 10/21/2021 15:30 EDT CR Calcaneus 2+ Views [id number] -SHRUTHI MALIK Left CPT code 63786 Reason For Exam (CR Calcaneus 2+ Views [...] Transcribed Date and Time: 10/21/2021 4:33 Normal [facility] CR Chest 1 View Frontalon CR Chest 1 View Frontal Patient Name: ANDREW SIFUENTES Diagnostic Radiology ACCESSION EXAM DATE/TIME PROCEDURE ORDERING PROVIDER [id number] 10/21/2021 08:16 EDT CR Chest 1 View Frontal [id number] MAY BOGGS CPT code 51143 Reason For Exam (CR Chest 1 View [...] Transcribed Date and Time: 10/21/2021 8:33 Normal [facility] D-Dimer, Innovanceon 022 D-Dimer, Innovance 1.51 mg/L High <0.19-0.50 [facility] Comment on above: Result Comment: Inno saba D-Dimer values of <0.50 mg/L FEU can be used in combination with a pre-test probability model (e.g. Well's) to exclude pulmonary embolism (PE) disease, as well as an aid in the diagnosis of deep vein thrombosis (DVT). Performed By: #### P T #### [facility] [address] [place] [address] D-Dimer, Quantitativeon 10-05 D-Dimer, Quant 1.51 mg/L High <0.19 - 0.50 [facility] Comment on above: [facility] D-Dimer va lues of <0.50 mg/L FEU can be used in combination with a pre-test probability model (e.g. Well's) to exclude pulmonary embolism (PE) disease, as well as an aid in the diagnosis of deep vein thrombosis (DVT). Interpretation and review of laboratory results Abnormal [facility] Test Performed by [facility], [address] [place], [place], [place] [address] [facility] ED Provider Noteon 2 ED Provider Note [facility] ED EMERGENCY DEPARTMENT ENCOUNTER Pt Name: Andrew [...] (HCC) ? Kidney stone ? Neuropathy ? NURSING COORDINATOR (ventriculoperitoneal) shunt status SURGICAL HISTORY Past Surgical [...] LUNGS: Respirations (more content not included)... Normal [facility] [place] [facility] Hemogramon 10-21-2021 Erythrocyte distribution width (RBC) [Ratio] 17.3 % High 11.5-14.5 [facility] Comment on above: Performed By: #### C OVAG #### [facility] [address] [place] [address] Hematocrit (Bld) [Volume fraction] 33.6 % Low 40.0-52.0 [facility] Comment on above: Performed By: #### C OVAG #### [facility] [address] [place] [address] Hemoglobin (Bld) [Mass/Vol] 10.9 g/dL Low 13.0-18.0 [facility] Comment on above: Performed By: #### C OVAG #### [facility] [address] [place] [address] MCH (RBC) [Entitic mass] 27.8 pg Normal 26.0-34.0 [facility] Comment on above: Performed By: #### C OVAG #### [facility] [address] [place] [address] MCHC 32.5 % Normal 32.0-36.0 [facility] Comment on above: Performed By: #### C OVAG #### [facility] [address] [place] [address] MCV (RBC) [Entitic vol] 85.6 fL Normal 80.0-98.0 [facility] Comment on above: Performed By: #### C OVAG #### [facility] [address] [place] [address] Platelet mean volume (Bld) [Entitic vol] 7.7 fL Normal 7.4-12.4 [facility] Comment on above: Result Comment: MPV is a calculated measurement using platelet volume ratio. Performed By: #### C OVAG #### [facility] [address] [place] [address] Platelets (Bld) [#/Vol] 404 10*3/uL Normal 140-440 [facility] Comment on above: Performed By: #### C OVAG #### [facility] [address] [place] [address] RBC (Bld) [#/Vol] 3.93 10*6/uL Low 4.40-5.90 [facility] Comment on above: Performed By: #### C OVAG #### [facility] [address] [place] [address] WBC (Bld) [#/Vol] 11.6 10*3/uL High 3.6-10.7 [facility] Comment on above: Performed By: #### C OVAG #### [facility] [address] [place] [address] Hemogram (CBC)on 10-21-2021 Hematocrit (Bld) [Volume fraction] 33.6 % Low 40.0 - 52.0 % [facility] Hemoglobin (Bld) [Mass/Vol] 10.9 g/dL Low 13.0 - 18.0 g/dL [facility] [...] vol] 7.7 fL 7.4 - 12.4 fL [facility] Comment on above: MPV is a calculated measurement using platelet volume ratio. Platelets (Bld) [#/Vol] 404 10*3/uL 140 - 440 10*3/uL [facility] RBC (Bld) [#/Vol] 3.93 10*6/uL Low 4.40 - 5.9 0 10*6/uL [facility] WBC (Bld) [#/Vol] 11.6 10*3/uL High 3.6 - 10.7 10*3/uL [facility] Test Performed by [facility], [address] [place], [place] [address] [facility] NM LUNG VENT/PERFUSION (VQ)o n 10-21-2021 Patient Name: ANDREW SIFUENTES Nuclear Medicine ACCESSION EXAM DATE/TIME PROCEDURE ORDERING PROVIDER [id number] 10/21/2021 07:55 EDT NM Pulmonary Perfusion [id number] -MAY CASH w/ Vent Aerosol CPT code 12889 A9567 Reason For Exam (NM Pulmonary Perfusion [...] JOHN Transcribed Date and Time: 10/21/2021 8:49 [facility] Henry Harvey MD - 10/21/2021 Patient Name: ANDREW SIFUENTES Nuclear Medicine ACCESSION EXAM DATE/TIME PROCEDURE ORDERING PROVIDER [id number] 10/21/2021 07:55 EDT NM Pulmonary Perfusion [id number] -MAY CASH w/ Vent Aerosol CPT code 43071 A9567 Reason For Exam (NM Pulmonary Perfusion [...] Date and Time: 10/21/2021 8:49 [facility] Work Phone: NM LUNG VENT/PERFUSION (VQ)O rdered By: Henry Harvey on 10-21-2021 [facility] Work Phone: NM Pulmonary Perfusion w/ Ve nt Aerosol or Gason 10-21-2021 NM Pulmonary Perfusion w/ Vent Aerosol or Gas Patient Name: ANDREW SIFUENTES Nuclear Medicine ACCESSION EXAM DATE/TIME PROCEDURE ORDERING PROVIDER [id number] 10/21/2021 07:55 EDT NM Pulmonary Perfusion [id number] MAY BOGGS w/ Vent Aerosol CPT code 99440 A9567 Reason For Exam (NM Pulmonary Perfusion [...] Transcribed Date and Time: 10/21/2021 8:49 Normal [facility] No Panel Informationon 10-21 Radiology Study observation (narrative) [facility] Work Phone: Prothrombin Timeon 2 INR 1.1 Normal 0.9-1.1 [facility] Comment on above: Result Comment: Harry [...] Infarction Performed By: #### C OVAG #### [facility] [address] [place] [address] PT Coag (PPP) [Time] 11.5 s Normal 9.0-12.0 [facility] Comment on above: Result Comment: . Performed By: #### C OVAG #### [facility] [address] [place] [address] Protime-INRon 10-21-2021 INR Coag (Bld) [Relative time] [...] 11.5 s 9.0 - 12.0 s [facility] Comment on above: . Test Performed by [facility], [address] LAB [facility] Retic Count(%)on 10-21-2021 Retic Count(%) 1.6 Normal [facility] Comment on above: Result Comment: [place] < 5% Adults 0.5 - 1.5% Performed By: #### P T #### [facility] [address] [place] [address] Reticulocyteson 10-21-[address] Pct 1.6 [facility] Comment on above: [place] < 5% Adults 0.5 - 1.5% Test Performed by [facility], [address] LAB [facility] Sed Rateon 10-21-2021 Sed Rate 63 mm/h High 0-10 [facility] Comment on above: Performed By: #### P T #### [facility] [address] [place] [address] Sedimentation Rateon 022 Interpretation and review of laboratory results Abnormal [facility] Sed Rate 63 mm/h High 0 - 10 mm/h [facility] Test Performed by [facility], [address], [place], [place] [address] [facility] VL CARMELLA Upr/L Extremity Art 1 -2 Levelson 10-21-2021 VL CARMELLA Upr/L Extremity Art 1-2 Levels Patient Name: ANDREW SIFUENTES Ultrasound ACCESSION EXAM DATE/TIME PROCEDURE ORDERING PROVIDER [id number] 10/21/2021 16:12 EDT VL Upr/L Extremity Art [id number] -SHRUTHI MALIK 1-2 Levels CPT code 05850 Reason For Exam (VL Upr/L Extremity Art 1-2 Levels) both lower legs CARMELLA for both feet wounds. Report [facility] Ankle Brachial Index Report Patient Gurpreet : 1950 Study 10/21/2021 Name: Andrew Gonzalez (71yrs) Date: Age: 71 Account: [id number] Gender: M Loc: 444W BP: Ordering Physician: Shruthi Malik Sludge Filtration Operator: Rody Cross RDMS, RVT Interpreting Physician: Carina Call Location: [facility] Indications: Foot wounds. Originally ordered as a full PVR. Ordering HOSPICE RN had to modify the order to ABIs [...] supine position. Images were obtained using a [employer] vascular ultrasound machine. Arterial pressure indices: + [...] CARINA HENNESSY Cardiovascular ACCESSION EXAM DATE/TIME PROCEDURE [id number] 10/21/2021 16:12 EDT VL Upr/L Extremity Art 1-2 Levels CPT code 32903 Reason For Exam (VL Upr/L Extremity Art 1-2 Levels) both lower legs CARMELLA for both feet wounds. Report [facility] Ankle Brachial Index Report Patient DO GurpreetB: 1950 Study 10/21/2021 Name: Andrew Gonzalez (71yrs) Date: Age: 71 Account: [id number] Cardiovascular Report Gender: M Loc: 444W BP: Ordering Physician: Shruthi Malik Sludge Filtration Operator: Rody Cross RDMS, RVT Interpreting Physician: Carina Call Location: [facility] Indications: Foot wounds. Originally ordered as a full PVR. Ordering HOSPICE RN had to modify the order to ABIs [...] in th (more content not included)... Normal [facility] VL LOWER EXTREMITY BILATERAL VENOUS DUPLEXon 10-21-2021 [facility] Lower Extremity Venous Duplex Report Patient DO GurpreetB: 1950 Study 10/21/2021 Name: Andrew Gonzalez (71yrs) Date: Age: 71 Account: [id number] Gender: M Loc: 444 BP: Ordering Physician: May Cash Sludge Filtration Operator: Rody Cross RDMS, RVT Interpreting Physician: Carina [...] supine position. Images were obtained using a [employer] vascular ultrasound machine. Venous flow and imaging: [...] included)... [facility] CARDIOLOGY Carina Call MD - 10/21/2021 [facility] Lower Extremity Venous Duplex Report Patient DO GurpreetB: 1950 Study 10/21/2021 Name: Andrew Gonzalez (71yrs) Date: Age: 71 Account: [id number] Gender: M Loc: 444 BP: Ordering Physician: May Cash Sludge Filtration Operator: Rody Cross RDMS, RVT Interpreting Physician: Carina [...] supine position. Images were obtained using a [employer] vascular ultrasound machine. Venous flow and imaging: [...] + + +----- (more content not included)... [facility] Work Phone: VL LOWER EXTREMITY BILATERAL VENOUS DUPLEXOrdered By: Carina Call on 10-21-2021 [facility] Work Phone: VL Venous Duplex US Lower Ex t Bilateralon 10-21-2021 VL Venous Duplex US Lower Ext Bilateral Patient Name: ANDREW SIFUENTES Ultrasound ACCESSION EXAM DATE/TIME PROCEDURE ORDERING PROVIDER [id number] 10/21/2021 09:53 EDT VL Venous Duplex [place] [id number] -MAY CASH Lower Ext Bilateral CPT code 59735 Reason For Exam (VL Venous Duplex US Lower Ext Bilateral) bilateral sqwelling redness Report [facility] Lower Extremity Venous Duplex Report Patient DO GurpreetB: 1950 Study 10/21/2021 Name: Andrew Gonzalez (71yrs) Date: Age: 71 Account: [id number] Gender: M Loc: 444 BP: Ordering Physician: May Cash Sludge Filtration Operator: Rody Cross RDMS, RVT Interpreting Physician: Carina [...] supine position. Images were obtained using a [employer] vascular ultrasound machine. Venous flow and imaging: [...] + + (more content not included)... Normal [facility] [employer] [facility] XR CALCANEUS LEFT (MIN 2 VIE WS)on 10-21-2021 Patient Name: ANDREW SIFUENTES Diagnostic Radiology ACCESSION EXAM DATE/TIME PROCEDURE ORDERING PROVIDER [id number] 10/21/2021 15:30 EDT CR Calcaneus 2+ Views [id number] -SHRUTHI MALIK Left CPT code 28856 Reason For Exam (CR Calcaneus 2+ Views [...] MD - 10/21/2021 Patient Name: [facility]W [facility]ENTES [id number] Diagnostic Radiology ACCESSION EXAM DATE/TIME PROCEDURE ORDERING PROVIDER [id number] 10/21/2021 15:30 EDT CR Calcaneus 2+ Views [id number] -SHRUTHI MALIK Left CPT code 68649 Reason For Exam (CR Calcaneus 2+ Views [...] Radiology ACCESSION EXAM DATE/TIME PROCEDURE ORDERING PROVIDER [id number] 10/21/2021 08:16 EDT CR Chest 1 View Frontal [id number] FOSTER CPT code 19363 Reason For Exam (CR Chest 1 View [...] Date and Time: 10/21/2021 8:33 [facility] Venus Loyd MD - 10/21/2021 Patient Name: ANDREW SIFUENTES Diagnostic Radiology ACCESSION EXAM DATE/TIME PROCEDURE ORDERING PROVIDER [id number] 10/21/2021 08:16 EDT CR Chest 1 View Frontal [id number] CONTI CPT code 10749 Reason For Exam (CR Chest 1 View [...] RAMOS Transcribed Date and Time: 10/21/2021 8:33 [facility] Work Phone: XR Chest 1 VWOrdered By: Natalie Loyd on 10-21-2021 [facility] Work Phone: Basophil percentageon 2021 Chloride [Moles/Vol] 108 mmol/L 98-107 [facility] Work Phone: Glucose [Mass/Vol] 93 mg/dL 74-106 [facility] Work Phone: Potassium [Moles/Vol] 3.9 mmol/L 3.5-5.1 [facility] Work Phone: Sodium [Moles/Vol] 140 mmol/L 136-145 [facility] Work Phone: WBC (Bld) [#/Vol] 8.7 10*3/uL 4.4-11.0 [facility] Work Phone: Blood erythrocytes count (nu mber/volume)on 10-20-2021 RBC (Bld) [#/Vol] 3.63 10*6/uL 4.6-6.2 [facility] Work Phone: Blood hemoglobin measurement (mass/volume)on 10-20-2021 Hemoglobin (Bld) [Mass/Vol] 10.1 g/dL 13.0-16.5 [facility] Work Phone: Blood platelet mean volumeon 10-20-2021 Platelet mean volume (Bld) [Entitic vol] 9.8 fL 6.2-12.0 [facility] Work Phone: Determination of erythrocyte mean corpuscular volume (MCV)on 10-20-2021 MCV (RBC) [Entitic vol] 90.1 fL 80-94 [facility] Work Phone: Hematocrit Auto (Bld) [Volum e fraction]on 10-20-2021 Hematocrit (Bld) [Volume fraction] 32.7 % 40-54 [facility] Work Phone: Laboratory - Chemistry and C hemistry - challengeon 10-20-2021 CO2 [Moles/Vol] 25.0 mmol/L 21.0-32.0 [facility] Work Phone: Urea nitrogen/Creatinine [Mass ratio] 17.4 mg/mg 10-20 [facility] Work Phone: Laboratory - Hematology and Cell countson 10-20-2021 Erythrocyte distribution width (RBC) [Entitic vol] 52.1 fL 35.1-43.9 [facility] Work Phone: Erythrocyte distribution width (RBC) [Ratio] 15.6 % 11.6-14.6 [facility] Work Phone: MCH (RBC) [Entitic mass] 27.8 pg 27.0-32.0 [facility] Work Phone: MCHC Auto (RBC) [Mass/Vol]on 10-20-2021 MCHC (RBC) [Mass/Vol] 30.9 g/dL 32-36 [facility] Work Phone: No Panel Informationon 10-20 Estimated GFR (MDRD) Amer 133 mL/min >60 [facility] Work Phone: Comment on above: GFR Calc Estimated GFR (MDRD) Non-Af Amer 110 mL/min >60 [facility] Work Phone: Comment on above: Non- GFR Calc Platelets bldon 10-20-2021 Platelets (Bld) [#/Vol] 404 10*3/uL 150-450 [facility] Work Phone: Serum or plasma calcium oral urement (mass/volume)on 10-20-2021 Calcium [Mass/Vol] 9.1 mg/dL 8.5-10.1 [facility] Work Phone: Serum or plasma creatinine m easurement (mass/volume)on 10-20-2021 Creatinine [Mass/Vol] 0.75 mg/dL 0.70-1.30 [facility] Work Phone: Comment on above: The validity of the calculated GFR & GFRAA in patients over 70 years has not been determined. Clinical correlation is essential. Serum or plasma urea nitroge n measurement (mass/volume)on 10-20-2021 Urea nitrogen [Mass/Vol] 13 mg/dL 7-18 [facility] Work Phone: Thin prep Papanicolaou smear with manual screeningon 10-20-2021 Thin prep Papanicolaou smear with manual screening 7 5-15 [facility] Work Phone: CNPNon 10-17-2021 CNPN Normal [facility] Absolute lymphocyte counton 09-19-2021 Lymphocytes Auto (Unsp spec) [#/Vol] 1.74 10*3/uL 0.83-4.51 [facility] Work Phone: Basophil percentageon 2021 Basophils/100 WBC (Bld) 0.6 % 0-1 [facility] Work Phone: Bilirubin [Mass/Vol] 0.30 mg/dL 0.20-1.00 [facility] Work Phone: Comment on above: For patients on eltr ombopag therapy, use of Dimension [place] TBIL is not recommended. Chloride [Moles/Vol] 105 mmol/L 98-107 [facility] Work Phone: Eosinophils/100 WBC (Bld) 3.5 % 0-5 [facility] Work Phone: Glucose [Mass/Vol] 91 mg/dL 74-106 [facility] Work Phone: Neutrophils (Bld) [#/Vol] 4.2 10*3/uL 2.0-7.7 [facility] Work Phone: Neutrophils/100 WBC (Bld) 62.6 % 47-70 [facility] Work Phone: [phone] Potassium [Moles/Vol] 3.8 mmol/L 3.5-5.1 [facility] Work Phone: [phone] Protein [Mass/Vol] 6.3 g/dL 6.4-8.2 [facility] [place] Work Phone: [phone] Sodium [Moles/Vol] 139 mmol/L 136-145 [facility] [place] Work Phone: WBC (Bld) [#/Vol] 6.6 10*3/uL 4.4-11.0 [facility] [place] Work Phone: Blood erythrocytes count (nu mber/volume)on 09-19-2021 RBC (Bld) [#/Vol] 3.47 10*6/uL 4.6-6.2 [facility] [place] Work Phone: Blood hemoglobin measurement (mass/volume)on 09-19-2021 Hemoglobin (Bld) [Mass/Vol] 10.2 g/dL 13.0-16.5 [facility] Work Phone: Blood lymphocytes/100 leukoc yteson 09-19-2021 Lymphocytes/100 WBC (Bld) 26.2 % 19-41 [facility] Work Phone: Blood monocytes/100 leukocyt eson 09-19-2021 Monocytes/100 WBC (Bld) 6.5 % 0-10 [facility] Work Phone: Blood platelet mean volumeon 09-19-2021 Platelet mean volume (Bld) [Entitic vol] 9.6 fL 6.2-12.0 [facility] Work Phone: Determination of erythrocyte mean corpuscular volume (MCV)on 09-19-2021 MCV (RBC) [Entitic vol] 94.8 fL 80-94 [facility] Work Phone: Hematocrit Auto (Bld) [Volum e fraction]on 09-19-2021 Hematocrit (Bld) [Volume fraction] 32.9 % 40-54 [facility] Work Phone: Laboratory - Chemistry and C hemistry - challengeon 09-19-2021 ALP [Catalytic activity/Vol] 109 U/L 45-117 [facility] Work Phone: ALT [Catalytic activity/Vol] 23 U/L 16-61 [facility] Work Phone: CO2 [Moles/Vol] 26.0 mmol/L 21.0-32.0 [facility] Work Phone: Globulin (S) [Mass/Vol] 3.5 g/dL 2.2-4.2 [facility] Work Phone: Urea nitrogen/Creatinine [Mass ratio] 15.3 mg/mg 10-20 [facility] Work Phone: Laboratory - Hematology and Cell countson 09-19-2021 Erythrocyte distribution width (RBC) [Entitic vol] 59.4 fL 35.1-43.9 [facility] Work Phone: Erythrocyte distribution width (RBC) [Ratio] 17.1 % 11.6-14.6 [facility] Work Phone: Immature granulocytes/100 WBC (Bld) 0.600 % 0.0-0.9 [facility] Work Phone: Comment on above: IG% - Immature Granu locytes (promyelocytes, myelocytes and metamyelocytes) > 1% indicates that a LEFT SHIFT is Present. MCH (RBC) [Entitic mass] 29.4 pg 27.0-32.0 [facility] Work Phone: Nucleated RBC/100 WBC (Bld) [Ratio] 0 % 0-5 [facility] Work Phone: MCHC Auto (RBC) [Mass/Vol]on 09-19-2021 MCHC (RBC) [Mass/Vol] 31.0 g/dL 32-36 [facility] Work [facility]: No Panel Informationon 09-19 Estimated GFR (MDRD) Amer 175 mL/min >60 [facility] Work Phone: Comment on above: GFR Calc Estimated GFR (MDRD) Non-Af Amer 145 mL/min >60 [facility] Work Phone: Comment on above: Non- GFR Calc Platelets bldon 09-19-2021 Platelets (Bld) [#/Vol] 342 10*3/uL 150-450 [facility] Work Phone: Serum or plasma albumin oral urement (mass/volume)on 09-19-2021 Albumin [Mass/Vol] 2.8 g/dL 3.2-5.0 [facility] Work Phone: Serum or plasma albumin/glob ulin mass ratioon 09-19-2021 Albumin/Globulin [Mass ratio] 0.8 {ratio} 0.9-2.4 [facility] Work Phone: Serum or plasma calcium oral urement (mass/volume)on 09-19-2021 Calcium [Mass/Vol] 9.0 mg/dL 8.5-10.1 [facility] Work Phone: Serum or plasma creatinine m easurement (mass/volume)on 09-19-2021 Creatinine [Mass/Vol] 0.59 mg/dL 0.70-1.30 [facility] Work Phone: Comment on above: The validity of the calculated GFR & GFRAA in patients over 70 years has not been determined. Clinical correlation is essential. Serum or plasma urea nitroge n measurement (mass/volume)on 09-19-2021 Urea nitrogen [Mass/Vol] 9 mg/dL 7-18 [facility] Work Phone: Thin prep Papanicolaou smear with manual screeningon 09-19-2021 Thin prep Papanicolaou smear with manual screening 12 U/L 15-37 [facility] Work Phone: Thin prep Papanicolaou smear with manual screening 8 5-15 [facility] Work Phone: OPERATIVE NOon 08-22-2021 OPERATIVE NO Normal [facility] Basic metabolic 2000 panelon 08-19-2021 Anion gap [Moles/Vol] 10 mmol/L Normal 9-18 [facility] Comment on above: Order Comment: Speci men Type: BLOOD SPECIMENOrdering Facility: [facility] Address: [address] [place] [address] Performed By: #### 2 4321-2 ####[facility] LABORATORYCLIA [id number] [place] [address] [place] Calcium [Mass/Vol] 8.6 mg/dL Normal 8.5-10.2 [facility] Comment on above: Order Comment: Speci men Type: BLOOD SPECIMENOrdering Facility: [facility] Address: [address] [place] [address] Performed By: #### 2 4321-2 ####[facility]ATORYCLIA [id number] [place] [address] [place] Chloride [Moles/Vol] 99 mmol/L Normal 97-105 [facility] Comment on above: Order Comment: Speci men Type: BLOOD SPECIMENOrdering Facility: [facility] Address: [address] [place] [address] Performed By: #### 2 4321-2 ####[facility]ORATORYCLIA [id number] [place] [address] [place] CO2 [Moles/Vol] 29 mmol/L Normal 22-30 [facility] Comment on above: Order Comment: Speci men Type: BLOOD SPECIMENOrdering Facility: [facility] Address: [address] [place] [address] Performed By: #### 2 4321-2 ####[facility]ORATORYCLIA [id number] [place] [address] [place] Creatinine [Mass/Vol] 0.58 mg/dL Low 0.73-1.22 [facility] Comment on above: Order Comment: Speci men Type: BLOOD SPECIMENOrdering Facility: [facility] Address: [address] [place] [address] Performed By: #### 2 4321-2 ####[facility]ORATORYCLIA [id number] [place] [address] [place] ESTIMATED GLOMERULAR FILTRATION RATE 106 mL/min/1.73m??? Normal >=60 [facility] Comment on above: Order Comment: Shira feldman Type: BLOOD SPECIMENOrdering Facility: [facility] Address: [address] [place] [address] Result Comment: Luzmaria mated Glomerular Filtration Rate [...] actual GFR. Performed By: #### 2 4321-2 ####[facility] SERVICESIA [id number] [place] [address] [place] Glucose [Mass/Vol] 101 mg/dL High 74-99 [facility] Comment on above: Order Comment: Shira feldman Type: BLOOD SPECIMENOrdering Facility: [facility] Address: [address] [place] [address] Result Comment: The [place] [employer] [...] 2016.39(Suppl 1). Performed By: #### 2 4321-2 ####[facility]ORATORYCLIA [id number] [place] [id number] [place] Potassium [Moles/Vol] 3.5 mmol/L Low 3.7-5.1 [facility] Comment on above: Order Comment: Speci men Type: BLOOD SPECIMENOrdering Facility: [facility] Address: [address] [place] [address] Performed By: #### 2 4321-2 ####[facility]ORATORYCLIA [id number] [address] [place] [facility] Sodium [Moles/Vol] 138 mmol/L Normal 136-144 [facility] Comment on above: Order Comment: Speci men Type: BLOOD SPECIMENOrdering Facility: [facility] Address: [address] [place] [address] Performed By: #### 2 4321-2 ####[facility]ORATORYCLIA [id number] [address] [place] [facility] Urea nitrogen [Mass/Vol] 11 mg/dL Normal 9-24 [facility] Comment on above: Order Comment: Speci men Type: BLOOD SPECIMENOrdering Facility: [facility] Address: [address] [place] [address] Performed By: #### 2 4321-2 ####[facility] LABORATORYCLIA [id number] [address] [place] [facility] CASE MANAGEMon 08-19-2021 CASE MANAGEM Normal [facility] CBC W Auto Differential pane l (Bld)on 08-19-2021 Basophils (Bld) [#/Vol] 0.03 10*3/uL Normal <0.11 [facility] Comment on above: Order Comment: Speci men Type: BLOOD SPECIMENOrdering Facility: [facility] Address: [address] [place] [address] Performed By: #### 5 7021-8 ####[facility]ORATORYCLIA [id number] [address] [facility] Basophils/100 WBC (Bld) 0.4 % Normal [facility] Comment on above: Order Comment: Speci men Type: BLOOD SPECIMENOrdering Facility: [facility] Address: [address] [place] [address] Performed By: #### 5 7021-8 ####[facility]ORATORYCLIA [id number] [address] Differential cell count method Nom (Bld) Auto Normal [facility] Comment on above: Order Comment: Speci men Type: BLOOD SPECIMENOrdering Facility: [facility] Address: [address] [place] [address] Performed By: #### 5 7021-8 ####[facility]ORATORYCLIA [id number] [address] Eosinophils (Bld) [#/Vol] 0.24 10*3/uL Normal <0.46 [facility] Comment on above: Order Comment: Speci men Type: BLOOD SPECIMENOrdering Facility: [facility] Address: [address] [place] [address] Performed By: #### 5 7021-8 ####[facility]ORATORYCLIA [id number] [address] Eosinophils/100 WBC (Bld) 3.1 % Normal [facility] Comment on above: Order Comment: Speci men Type: BLOOD SPECIMENOrdering Facility: [facility] Address: [address] [place] [address] Performed By: #### 5 7021-8 ####[facility]ORATORYCLIA [id number] [address] Erythrocyte distribution width (RBC) [Ratio] 17.5 % High 11.5-15.0 [facility] Comment on above: Order Comment: Speci men Type: BLOOD SPECIMENOrdering Facility: [facility] Address: [address] [place] [address] Performed By: #### 5 7021-8 ####[facility]ORATORYCLIA [id number] [address] Hematocrit (Bld) [Volume fraction] 30.2 % Low 39.0-51.0 [facility] Comment on above: Order Comment: Speci men Type: BLOOD SPECIMENOrdering Facility: [facility] Address: [address] [place] [address] Performed By: #### 5 7021-8 ####[facility]ORATORYCLIA [id number] [address] Hemoglobin (Bld) [Mass/Vol] 9.6 g/dL Low 13.0-17.0 [facility] Comment on above: Order Comment: Speci men Type: BLOOD SPECIMENOrdering Facility: [facility] Address: [address] [place] [address] Performed By: #### 5 7021-8 ####[facility]ORATORYCLIA [id number] [address] IMMATURE GRAN % 0.4 % Normal [facility] Comment on above: Order Comment: Speci men Type: BLOOD SPECIMENOrdering Facility: [facility] Address: [address] [place] [address] Performed By: #### 5 7021-8 ####[facility]ORATORYCLIA [id number] [address] IMMATURE GRAN ABS 0.03 k/uL Normal <0.10 [facility] Comment on above: Order Comment: Speci men Type: BLOOD SPECIMENOrdering Facility: [facility] Address: [address] [place] [address] Performed By: #### 5 7021-8 ####[facility]ORATORYCLIA [id number] [address] [place] Lymphocytes (Bld) [#/Vol] 1.71 10*3/uL Normal 1.00-4.00 [facility] Comment on above: Order Comment: Speci men Type: BLOOD SPECIMENOrdering Facility: [facility] Address: [address] [place] [address] Performed By: #### 5 7021-8 ####[facility]ORATORYCLIA [id number] [address] Lymphocytes/100 WBC (Bld) 22.2 % Normal [facility] Comment on above: Order Comment: Speci men Type: BLOOD SPECIMENOrdering Facility: [facility] Address: [address] [place] [address] Performed By: #### 5 7021-8 ####[facility]ATORYCLIA [id number] [address] MCH (RBC) [Entitic mass] 29.4 pg Normal 26.0-34.0 [facility] Comment on above: Order Comment: Speci men Type: BLOOD SPECIMENOrdering Facility: [facility] Address: [address] [place] [address] Performed By: #### 5 7021-8 ####[facility]ATORYCLIA [id number] [address] [facility] MCHC (RBC) [Mass/Vol] 31.8 g/dL Normal 30.5-36.0 [facility] Comment on above: Order Comment: Speci men Type: BLOOD SPECIMENOrdering Facility: [facility] Address: [address] [place] [address] Performed By: #### 5 7021-8 ####[facility]ATORYCLIA [id number] [address] MCV (RBC) [Entitic vol] 92.6 fL Normal 80.0-100.0 [facility] Comment on above: Order Comment: Speci men Type: BLOOD SPECIMENOrdering Facility: [facility] Address: [address] [place] [address] Performed By: #### 5 7021-8 ####[facility]ORATORYCLIA [id number] [address] Monocytes (Bld) [#/Vol] 0.50 10*3/uL Normal <0.87 [facility] Comment on above: Order Comment: Speci men Type: BLOOD SPECIMENOrdering Facility: [facility] Address: [address] [place] [address] Performed By: #### 5 7021-8 ####[facility]ORATORYCLIA [id number] [place] [address] [place] Monocytes/100 WBC (Bld) 6.5 % Normal [facility] Comment on above: Order Comment: Speci men Type: BLOOD SPECIMENOrdering Facility: [facility] Address: [address] [place] [address] Performed By: #### 5 7021-8 ####[facility]ORATORYCLIA [id number] [place] [address] [place] Neutrophils (Bld) [#/Vol] 5.20 10*3/uL Normal 1.45-7.50 [facility] Comment on above: Order Comment: Speci men Type: BLOOD SPECIMENOrdering Facility: [facility] Address: [address] [place] [address] Performed By: #### 5 7021-8 ####[facility]ORATORYCLIA [id number] [address] [place] Neutrophils/100 WBC (Bld) 67.4 % Normal [facility] Comment on above: Order Comment: Speci men Type: BLOOD SPECIMENOrdering Facility: [facility] Address: [address] [place] [address] Performed By: #### 5 7021-8 ####[facility]ORATORYCLIA [id number] [place] [address] [place] Nucleated RBC (Bld) [#/Vol] 10*3/uL Normal <0.01 [facility] Comment on above: Order Comment: Speci men Type: BLOOD SPECIMENOrdering Facility: [facility] Address: [address] [place] [address] Performed By: #### 5 7021-8 ####[facility]ORATORYCLIA [id number] [place] [address] [place] Nucleated RBC/100 WBC (Bld) [Ratio] 0.0 /100 WBC Normal [facility] Comment on above: Order Comment: Speci men Type: BLOOD SPECIMENOrdering Facility: [facility] Address: [address] [place] [address] Performed By: #### 5 7021-8 ####[facility]ATORYCLIA [id number] [address] Platelet mean volume (Bld) [Entitic vol] 8.9 fL Low 9.0-12.7 [facility] Comment on above: Order Comment: Speci men Type: BLOOD SPECIMENOrdering Facility: [facility] Address: [address] [place] [address] Performed By: #### 5 7021-8 ####[facility]ATORYCLIA [id number] [address] [place] Platelets (Bld) [#/Vol] 408 10*3/uL High 150-400 [facility] Comment on above: Order Comment: Speci men Type: BLOOD SPECIMENOrdering Facility: [facility] Address: [address] [place] [address] Performed By: #### 5 7021-8 ####[facility]ATORYCLIA [id number] [address] [place] RBC (Bld) [#/Vol] 3.26 10*6/uL Low 4.20-6.00 [facility] Comment on above: Order Comment: Speci men Type: BLOOD SPECIMENOrdering Facility: [facility] Address: [address] [place] [address] Performed By: #### 5 7021-8 ####[facility]ATORYCLIA [id number] [address] [place] WBC (Bld) [#/Vol] 7.71 10*3/uL Normal 3.70-11.00 [facility] Comment on above: Order Comment: Speci men Type: BLOOD SPECIMENOrdering Facility: [facility] Address: [address] [place] [address] Performed By: #### 5 7021-8 ####[facility]ATORYCLIA [id number] [address] [place] CNDSon 08-19-2021 CNDS Normal [facility] CONSULT PROGon 08-19-2021 CONSULT PROG Normal [facility] THERAPY NTon 08-19-2021 THERAPY NT Normal [facility] Basic metabolic 2000 panelon 08-18-2021 Anion gap [Moles/Vol] 11 mmol/L Normal 9-18 [facility] Comment on above: Order Comment: Speci men Type: BLOOD SPECIMENOrdering Facility: [facility] Address: [address] [place] [address] Performed By: #### 2 4321-2 ####[facility]ATORYCLIA [id number] [place] [address] [place] Calcium [Mass/Vol] 8.6 mg/dL Normal 8.5-10.2 [facility] Comment on above: Order Comment: Speci men Type: BLOOD SPECIMENOrdering Facility: [facility] Address: [address] [place] [address] Performed By: #### 2 4321-2 ####[facility]ATORYCLIA [id number] [place] [address] [place] Chloride [Moles/Vol] 98 mmol/L Normal 97-105 [facility] Comment on above: Order Comment: Speci men Type: BLOOD SPECIMENOrdering Facility: [facility] Address: [address] [place] [address] Performed By: #### 2 4321-2 ####[facility]ATORYCLIA [id number] [place] [address] [place] CO2 [Moles/Vol] 28 mmol/L Normal 22-30 [facility] Comment on above: Order Comment: Speci men Type: BLOOD SPECIMENOrdering Facility: [facility] Address: [address] [place] [address] Performed By: #### 2 4321-2 ####[facility]ORATORYCLIA [id number] [place] [address] [place] Creatinine [Mass/Vol] 0.56 mg/dL Low 0.73-1.22 [facility] Comment on above: Order Comment: Speci men Type: BLOOD SPECIMENOrdering Facility: [facility] Address: [address] [place] [address] Performed By: #### 2 4321-2 ####[facility] SERVICESIA [id number] [address] ESTIMATED GLOMERULAR FILTRATION RATE 107 mL/min/1.73m??? Normal >=60 [facility] Comment on above: Order Comment: Shira francia Type: BLOOD SPECIMENOrdering Facility: [facility] Address: [address] [place] [address] Result Comment: Luzmaria mated Glomerular Filtration Rate [...] actual GFR. Performed By: #### 2 4321-2 ####[facility] SERVICESIA [id number] [place] [address] [place] Glucose [Mass/Vol] 113 mg/dL High 74-99 [facility] Comment on above: Order Comment: Johncara feldman Type: BLOOD SPECIMENOrdering Facility: [facility] Address: [address] [place] [address] Result Comment: The [place] [employer] [...] 2016.39(Suppl 1). Performed By: #### 2 4321-2 ####[facility]ORATORYCLIA [id number] [place] [address] [place] Potassium [Moles/Vol] 3.5 mmol/L Low 3.7-5.1 [facility] Comment on above: Order Comment: Speci men Type: BLOOD SPECIMENOrdering Facility: [facility] Address: [address] [place] [address] Performed By: #### 2 4321-2 ####[facility]ATORYCLIA [id number] [address] [place] Sodium [Moles/Vol] 137 mmol/L Normal 136-144 [facility] Comment on above: Order Comment: Speci men Type: BLOOD SPECIMENOrdering Facility: [facility] Address: [address] [place] [address] Performed By: #### 2 4321-2 ####[facility]ATORYCLIA [id number] [address] [place] [facility] Urea nitrogen [Mass/Vol] 10 mg/dL Normal 9-24 [facility] Comment on above: Order Comment: Speci men Type: BLOOD SPECIMENOrdering Facility: [facility] Address: [address] [place] [address] Performed By: #### 2 4321-2 ####[facility]ATORYCLIA [id number] [address] [place] CBC W Auto Differential pane l (Bld)on 08-18-2021 Basophils (Bld) [#/Vol] 10*3/uL Normal <0.11 [facility] Comment on above: Order Comment: Speci men Type: BLOOD SPECIMENOrdering Facility: [facility] Address: [address] [place] [address] Performed By: #### 5 7021-8 ####[facility]ATORYCLIA [id number] [address] [place] Basophils/100 WBC (Bld) 0.3 % Normal [facility] Comment on above: Order Comment: Speci men Type: BLOOD SPECIMENOrdering Facility: [facility] Address: [address] [place] [place] [address] Performed By: #### 5 7021-8 ####[facility]ATORYCLIA [id number] [address] Differential cell count method Nom (Bld) Auto Normal [facility] Comment on above: Order Comment: Speci men Type: BLOOD SPECIMENOrdering Facility: [facility] Address: [address] [place] [address] Performed By: #### 5 7021-8 ####[facility]ATORYCLIA [id number] [address] [place] Eosinophils (Bld) [#/Vol] 0.37 10*3/uL Normal <0.46 [facility] Comment on above: Order Comment: Speci men Type: BLOOD SPECIMENOrdering Facility: [facility] Address: [address] [place] [address] Performed By: #### 5 7021-8 ####[facility]ATORYCLIA [id number] [address] Eosinophils/100 WBC (Bld) 4.8 % Normal [facility] Comment on above: Order Comment: Speci men Type: BLOOD SPECIMENOrdering Facility: [facility] Address: [address] [place] [address] Performed By: #### 5 7021-8 ####[facility]ATORYCLIA [id number] [address] Erythrocyte distribution width (RBC) [Ratio] 17.5 % High 11.5-15.0 [facility] Comment on above: Order Comment: Speci men Type: BLOOD SPECIMENOrdering Facility: [facility] Address: [address] [place] [address] Performed By: #### 5 7021-8 ####[facility]ATORYCLIA [id number] [address] [place] Hematocrit (Bld) [Volume fraction] 30.2 % Low 39.0-51.0 [facility] Comment on above: Order Comment: Speci men Type: BLOOD SPECIMENOrdering Facility: [facility] Address: [address] [place] [address] Performed By: #### 5 7021-8 ####[facility]ATORYCLIA [id number] [address] [address] [facility] Hemoglobin (Bld) [Mass/Vol] 9.5 g/dL Low 13.0-17.0 [facility] Comment on above: Order Comment: Speci men Type: BLOOD SPECIMENOrdering Facility: [facility] Address: [address] [place] [address] Performed By: #### 5 7021-8 ####[facility]ORYCLIA [id number] [address] IMMATURE GRAN % 0.4 % Normal [facility] Comment on above: Order Comment: Speci men Type: BLOOD SPECIMENOrdering Facility: [facility] Address: [address] [place] [address] Performed By: #### 5 7021-8 ####[facility]ORYCLIA [id number] [address] IMMATURE GRAN ABS 0.03 k/uL Normal <0.10 [facility] Comment on above: Order Comment: Speci men Type: BLOOD SPECIMENOrdering Facility: [facility] Address: [address] [place] [address] Performed By: #### 5 7021-8 ####[facility]ORYCLIA [id number] [address] [place] Lymphocytes (Bld) [#/Vol] 1.85 10*3/uL Normal 1.00-4.00 [facility] Comment on above: Order Comment: Speci men Type: BLOOD SPECIMENOrdering Facility: [facility] Address: [address] [place] [address] Performed By: #### 5 7021-8 ####[facility]ORYCLIA [id number] [address] Lymphocytes/100 WBC (Bld) 23.8 % Normal [facility] Comment on above: Order Comment: Speci men Type: BLOOD SPECIMENOrdering Facility: [facility] Address: [address] [place] [address] Performed By: #### 5 7021-8 ####[facility]ORYCLIA [id number] [address] MCH (RBC) [Entitic mass] 29.5 pg Normal 26.0-34.0 [facility] Comment on above: Order Comment: Speci men Type: BLOOD SPECIMENOrdering Facility: [facility] Address: [address] [place] [address] Performed By: #### 5 7021-8 ####[facility]ORYCLIA [id number] [address] MCHC (RBC) [Mass/Vol] 31.5 g/dL Normal 30.5-36.0 [facility] Comment on above: Order Comment: Speci men Type: BLOOD SPECIMENOrdering Facility: [facility] Address: [address] [place] [address] Performed By: #### 5 7021-8 ####[facility]ORYCLIA [id number] [address] MCV (RBC) [Entitic vol] 93.8 fL Normal 80.0-100.0 [facility] Comment on above: Order Comment: Speci men Type: BLOOD SPECIMENOrdering Facility: [facility] Address: [address] [place] [address] Performed By: #### 5 7021-8 ####[facility]ORYCLIA [id number] [address] Monocytes (Bld) [#/Vol] 0.49 10*3/uL Normal <0.87 [facility] Comment on above: Order Comment: Speci men Type: BLOOD SPECIMENOrdering Facility: [facility] Address: [address] [place] [address] Performed By: #### 5 7021-8 ####[facility]ORYCLIA [id number] [address] [place] Monocytes/100 WBC (Bld) 6.3 % Normal [facility] Comment on above: Order Comment: Speci men Type: BLOOD SPECIMENOrdering Facility: [facility] Address: [address] [place] [address] Performed By: #### 5 7021-8 ####[facility]ATORYCLIA [id number] [place] [address] [place] Neutrophils (Bld) [#/Vol] 5.00 10*3/uL Normal 1.45-7.50 [facility] Comment on above: Order Comment: Speci men Type: BLOOD SPECIMENOrdering Facility: [facility] Address: [address] [place] [address] Performed By: #### 5 7021-8 ####[facility]ORYCLIA [id number] [address] Neutrophils/100 WBC (Bld) 64.4 % Normal [facility] Comment on above: Order Comment: Speci men Type: BLOOD SPECIMENOrdering Facility: [facility] Address: [address] [place] [address] Performed By: #### 5 7021-8 ####[facility]ORYCLIA [id number] [address] [place] Nucleated RBC (Bld) [#/Vol] 10*3/uL Normal <0.01 [facility] Comment on above: Order Comment: Speci men Type: BLOOD SPECIMENOrdering Facility: [facility] Address: [address] [place] [address] Performed By: #### 5 7021-8 ####[facility]ORYCLIA [id number] [address] [place] Nucleated RBC/100 WBC (Bld) [Ratio] 0.0 /100 WBC Normal [facility] Comment on above: Order Comment: Speci men Type: BLOOD SPECIMENOrdering Facility: [facility] Address: [address] [place], [place] [address] Performed By: #### 5 7021-8 ####[facility]ORYCLIA [id number] [address] Platelet mean volume (Bld) [Entitic vol] 9.1 fL Normal 9.0-12.7 [facility] Comment on above: Order Comment: Speci men Type: BLOOD SPECIMENOrdering Facility: [facility] Address: [address] [place], [place] [address] Performed By: #### 5 7021-8 ####[facility]ORYCLIA [id number] [address] [place] Platelets (Bld) [#/Vol] 391 10*3/uL Normal 150-400 [facility] Comment on above: Order Comment: Speci men Type: BLOOD SPECIMENOrdering Facility: [facility] Address: [address] [place] [address] Performed By: #### 5 7021-8 ####[facility]ORYCLIA [id number] [place] [address] [place] RBC (Bld) [#/Vol] 3.22 10*6/uL Low 4.20-6.00 [facility] Comment on above: Order Comment: Speci men Type: BLOOD SPECIMENOrdering Facility: [facility] Address: [address] [place], [place] [address] Performed By: #### 5 7021-8 ####[facility]ORYCLIA [id number] [address] [place] WBC (Bld) [#/Vol] 7.76 10*3/uL Normal 3.70-11.00 [facility] Comment on above: Order Comment: Speci men Type: BLOOD SPECIMENOrdering Facility: [facility] Address: [address] [place] [address] Performed By: #### 5 7021-8 ####[facility]ORYCLIA [id number] [address] [place] CONSULT PROGon 08-18-2021 CONSULT PROG Normal [facility] CASE MANAGEMon 08-17-2021 CASE MANAGEM Normal [facility] CBC W Auto Differential pane l (Bld)on 08-17-2021 Basophils (Bld) [#/Vol] 0.04 10*3/uL Normal <0.11 [facility] Comment on above: Order Comment: Speci men Type: BLOOD SPECIMENOrdering Facility: [facility] Address: [address] [place] [address] Performed By: #### 5 7021-8 ####[facility]ORYCLIA [id number] [address] [place] Basophils/100 WBC (Bld) 0.5 % Normal [facility] Comment on above: Order Comment: Speci men Type: BLOOD SPECIMENOrdering Facility: [facility] Address: [address] [place] [address] Performed By: #### 5 7021-8 ####[facility]ORYCLIA [id number] [address] [place] Differential cell count method Nom (Bld) Auto Normal [facility] Comment on above: Order Comment: Speci men Type: BLOOD SPECIMENOrdering Facility: [facility] Address: [address] [place] [address] Performed By: #### 5 7021-8 ####[facility]ATORYCLIA [id number] [place] [address] [place] Eosinophils (Bld) [#/Vol] 0.31 10*3/uL Normal <0.46 [facility] Comment on above: Order Comment: Speci men Type: BLOOD SPECIMENOrdering Facility: [facility] Address: [address] [place] [address] Performed By: #### 5 7021-8 ####[facility]ORYCLIA [id number] [address] [place] Eosinophils/100 WBC (Bld) 3.7 % Normal [facility] Comment on above: Order Comment: Speci men Type: BLOOD SPECIMENOrdering Facility: [facility] Address: [address] [place] [address] Performed By: #### 5 7021-8 ####[facility]ATORYCLIA [id number] [address] Erythrocyte distribution width (RBC) [Ratio] 17.4 % High 11.5-15.0 [facility] Comment on above: Order Comment: Speci men Type: BLOOD SPECIMENOrdering Facility: [facility] Address: [address] [place] [address] Performed By: #### 5 7021-8 ####[facility]ORYCLIA [id number] [address] Hematocrit (Bld) [Volume fraction] 30.6 % Low 39.0-51.0 [facility] Comment on above: Order Comment: Speci men Type: BLOOD SPECIMENOrdering Facility: [facility] Address: [address] [place] [address] Performed By: #### 5 7021-8 ####[facility]ORYCLIA [id number] [address] [place] Hemoglobin (Bld) [Mass/Vol] 9.6 g/dL Low 13.0-17.0 [facility] Comment on above: Order Comment: Speci men Type: BLOOD SPECIMENOrdering Facility: [facility] Address: [address] [place] [address] Performed By: #### 5 7021-8 ####[facility]ATORYCLIA [id number] [address] [place] IMMATURE GRAN % 0.2 % Normal [facility] Comment on above: Order Comment: Speci men Type: BLOOD SPECIMENOrdering Facility: [facility] Address: [address] [place] [address] Performed By: #### 5 7021-8 ####[facility]ORYCLIA [id number] [address] IMMATURE GRAN ABS <0.03 Normal <0.10 [facility] Comment on above: Order Comment: Speci men Type: BLOOD SPECIMENOrdering Facility: [facility] Address: [address] [place] [address] Performed By: #### 5 7021-8 ####[facility]ATORYCLIA [id number] [address] [place] Lymphocytes (Bld) [#/Vol] 1.66 10*3/uL Normal 1.00-4.00 [facility] Comment on above: Order Comment: Speci men Type: BLOOD SPECIMENOrdering Facility: [facility] Address: [address] [place] [address] Performed By: #### 5 7021-8 ####[facility]ORYCLIA [id number] [address] Lymphocytes/100 WBC (Bld) 19.9 % Normal [facility] Comment on above: Order Comment: Speci men Type: BLOOD SPECIMENOrdering Facility: [facility] Address: [address] [place] [address] Performed By: #### 5 7021-8 ####[facility]ORYCLIA [id number] [address] MCH (RBC) [Entitic mass] 28.9 pg Normal 26.0-34.0 [facility] Comment on above: Order Comment: Speci men Type: BLOOD SPECIMENOrdering Facility: [facility] Address: [address] [place] [address] Performed By: #### 5 7021-8 ####[facility]ORYCLIA [id number] [address] MCHC (RBC) [Mass/Vol] 31.4 g/dL Normal 30.5-36.0 [facility] Comment on above: Order Comment: Speci men Type: BLOOD SPECIMENOrdering Facility: [facility] Address: [address] [place] [address] Performed By: #### 5 7021-8 ####[facility]ATORYCLIA [id number] [place] [address] [place] MCV (RBC) [Entitic vol] 92.2 fL Normal 80.0-100.0 [facility] Comment on above: Order Comment: Speci men Type: BLOOD SPECIMENOrdering Facility: [facility] Address: [address] [place] [address] Performed By: #### 5 7021-8 ####[facility]ORYCLIA [id number] [address] [place] Monocytes (Bld) [#/Vol] 0.52 10*3/uL Normal <0.87 [facility] Comment on above: Order Comment: Speci men Type: BLOOD SPECIMENOrdering Facility: [facility] Address: [address] [place] [address] Performed By: #### 5 7021-8 ####[facility]ORYCLIA [id number] [address] [place] [facility] Monocytes/100 WBC (Bld) 6.2 % Normal [facility] Comment on above: Order Comment: Speci men Type: BLOOD SPECIMENOrdering Facility: [facility] Address: [address] [place] [address] Performed By: #### 5 7021-8 ####[facility]ORYCLIA [id number] [address] [place] Neutrophils (Bld) [#/Vol] 5.78 10*3/uL Normal 1.45-7.50 [facility] Comment on above: Order Comment: Speci men Type: BLOOD SPECIMENOrdering Facility: [facility] Address: [address] [place] [address] Performed By: #### 5 7021-8 ####[facility]ORYCLIA [id number] [address] [place] Neutrophils/100 WBC (Bld) 69.5 % Normal [facility] Comment on above: Order Comment: Speci men Type: BLOOD SPECIMENOrdering Facility: [facility] Address: [address] Performed By: #### 5 7021-8 ####[facility]ORYCLIA [id number] [address] Nucleated RBC (Bld) [#/Vol] 10*3/uL Normal <0.01 [facility] Comment on above: Order Comment: Speci men Type: BLOOD SPECIMENOrdering Facility: [facility] Address: [address] [place], [place] [address] Performed By: #### 5 7021-8 ####[facility]ORYCLIA [id number] [address] Nucleated RBC/100 WBC (Bld) [Ratio] 0.0 /100 WBC Normal [facility] Comment on above: Order Comment: Speci men Type: BLOOD SPECIMENOrdering Facility: [facility] Address: [address] [place], [place] [address] Performed By: #### 5 7021-8 ####[facility]ATORYCLIA [id number] [address] [place] [facility] Platelet mean volume (Bld) [Entitic vol] 9.2 fL Normal 9.0-12.7 [facility] Comment on above: Order Comment: Speci men Type: BLOOD SPECIMENOrdering Facility: [facility] Address: [address] [place], [place] [address] Performed By: #### 5 7021-8 ####[facility]ORYCLIA [id number] [address] [place] [facility] Platelets (Bld) [#/Vol] 379 10*3/uL Normal 150-400 [facility] Comment on above: Order Comment: Speci men Type: BLOOD SPECIMENOrdering Facility: [facility] Address: [address] [place], [place] [address] Performed By: #### 5 7021-8 ####[facility]ATORYCLIA [id number] [place] [address] [place] RBC (Bld) [#/Vol] 3.32 10*6/uL Low 4.20-6.00 [facility] Comment on above: Order Comment: Speci men Type: BLOOD SPECIMENOrdering Facility: [facility] Address: [address] [place] [address] Performed By: #### 5 7021-8 ####[facility]ORYCLIA [id number] [place] [address] [place] WBC (Bld) [#/Vol] 8.33 10*3/uL Normal 3.70-11.00 [facility] Comment on above: Order Comment: Speci men Type: BLOOD SPECIMENOrdering Facility: [facility] Address: [address] [place] [address] Performed By: #### 5 7021-8 ####[facility]ORYCLIA [id number] [address] [facility] CONSULT PROGon 08-17-2021 CONSULT PROG Normal [facility] NUTRITIONon 08-17-2021 NUTRITION Normal [facility] Basic metabolic 2000 panelon 08-16-2021 Anion gap [Moles/Vol] 14 mmol/L Normal 9-18 [facility] Comment on above: Order Comment: Speci men Type: BLOOD SPECIMENOrdering Facility: [facility] Address: [address] [place] [address] Performed By: #### 2 4321-2, 75496-5 ####[facility]ORYCLIA [id number] [address] [place] Calcium [Mass/Vol] 8.8 mg/dL Normal 8.5-10.2 [facility] Comment on above: Order Comment: Speci men Type: BLOOD SPECIMENOrdering Facility: [facility] Address: [address] [place] [address] Performed By: #### 2 4321-2, 86018-8 ####[facility]ORYCLIA [id number] [address] [place] Chloride [Moles/Vol] 97 mmol/L Normal 97-105 [facility] Comment on above: Order Comment: Speci men Type: BLOOD SPECIMENOrdering Facility: [facility] Address: [address] [place] [place] [address] Performed By: #### 2 4322, ####[facility]ATORYCLIA [id number] [place] [address] [place] CO2 [Moles/Vol] 27 mmol/L Normal 22-30 [facility] Comment on above: Order Comment: Speci men Type: BLOOD SPECIMENOrdering Facility: [facility] Address: [address] [place] [address] Performed By: #### 2 4322, ####[facility] [id number] [address] [place] [facility] Creatinine [Mass/Vol] 0.50 mg/dL Low 0.73-1.22 [facility] Comment on above: Order Comment: Speci men Type: BLOOD SPECIMENOrdering Facility: [facility] Address: [address] [place] [address] Performed By: #### 2 4320-06, ####[facility]ORYCLIA [id number] [address] ESTIMATED GLOMERULAR FILTRATION RATE 110 mL/min/1.73m??? Normal >=60 [facility] Comment on above: Order Comment: Speci men Type: BLOOD SPECIMENOrdering Facility: [facility] Address: [address] [place] [address] Result Comment: Luzmaria mated Glomerular Filtration Rate [...] actual GFR. Performed By: #### 2 2, ####[facility]ORYCLIA [id number] [place] [address] [place] Glucose [Mass/Vol] 101 mg/dL High 74-99 [facility] Comment on above: Order Comment: Shira feldman Type: BLOOD SPECIMENOrdering Facility: [facility] Address: [address] [place] [address] Result Comment: The [place] [employer] [...] Care. 2016.39(Suppl 1). Performed By: #### 2 ####[facility]ORYCLIA [id number] [place] [address] [place] Potassium [Moles/Vol] 3.6 mmol/L Low 3.7-5.1 [facility] Comment on above: Order Comment: Shira feldman Type: BLOOD SPECIMENOrdering Facility: [facility] Address: [address] [place] [address] Performed By: #### 2 ####[facility]ORYCLIA [id number] [place] [address] [place] Sodium [Moles/Vol] 138 mmol/L Normal 136-144 [facility] Comment on above: Order Comment: Shira feldman Type: BLOOD SPECIMENOrdering Facility: [facility] Address: [address] [place] [address] Performed By: #### 2 ####[facility]ORYCLIA [id number] [place] [address] [place] Urea nitrogen [Mass/Vol] 11 mg/dL Normal 9-24 [facility] Comment on above: Order Comment: Speci men Type: BLOOD SPECIMENOrdering Facility: [facility] Address: [address] [place] [address] Performed By: #### 2 4321-2, 63356-3 ####[facility]ORYCLIA [id number] [address] [place] CASE MANAGEMon 08-16-2021 CASE MANAGEM Normal [facility] CBC W Auto Differential pane l (Bld)on 08-16-2021 Basophils (Bld) [#/Vol] 0.03 10*3/uL Normal <0.11 [facility] Comment on above: Order Comment: Speci men Type: BLOOD SPECIMENOrdering Facility: [facility] Address: [address] [place] [address] Performed By: #### 5 7021-8 ####[facility]ORYCLIA [id number] [address] [place] Basophils/100 WBC (Bld) 0.4 % Normal [facility] Comment on above: Order Comment: Speci men Type: BLOOD SPECIMENOrdering Facility: [facility] Address: [address] [place] [address] Performed By: #### 5 7021-8 ####[facility]ORYCLIA [id number] [address] [place] Differential cell count method Nom (Bld) Auto Normal [facility] Comment on above: Order Comment: Speci men Type: BLOOD SPECIMENOrdering Facility: [facility] Address: [address] [place] [address] Performed By: #### 5 7021-8 ####[facility]ORYCLIA [id number] [place] [address] [place] Eosinophils (Bld) [#/Vol] 0.19 10*3/uL Normal <0.46 [facility] Comment on above: Order Comment: Speci men Type: BLOOD SPECIMENOrdering Facility: [facility] Address: [address] [place] [address] Performed By: #### 5 7021-8 ####[facility]ORYCLIA [id number] [address] Eosinophils/100 WBC (Bld) 2.5 % Normal [facility] Comment on above: Order Comment: Speci men Type: BLOOD SPECIMENOrdering Facility: [facility] Address: [address] [place] [address] Performed By: #### 5 7021-8 ####[facility]ORYCLIA [id number] [address] Erythrocyte distribution width (RBC) [Ratio] 17.1 % High 11.5-15.0 [facility] Comment on above: Order Comment: Speci men Type: BLOOD SPECIMENOrdering Facility: [facility] Address: [address] [place] [address] Performed By: #### 5 7021-8 ####[facility]ORYCLIA [id number] [address] Hematocrit (Bld) [Volume fraction] 29.2 % Low 39.0-51.0 [facility] Comment on above: Order Comment: Speci men Type: BLOOD SPECIMENOrdering Facility: [facility] Address: [address] [place] [address] Performed By: #### 5 7021-8 ####[facility]ORYCLIA [id number] [address] Hemoglobin (Bld) [Mass/Vol] 9.0 g/dL Low 13.0-17.0 [facility] Comment on above: Order Comment: Speci men Type: BLOOD SPECIMENOrdering Facility: [facility] Address: [address] [place] [address] Performed By: #### 5 7021-8 ####[facility]ORYCLIA [id number] [address] [place] IMMATURE GRAN % 0.3 % Normal [facility] Comment on above: Order Comment: Speci men Type: BLOOD SPECIMENOrdering Facility: [facility] Address: [address] [place] [address] Performed By: #### 5 7021-8 ####[facility]ORYCLIA [id number] [address] IMMATURE GRAN ABS <0.03 Normal <0.10 [facility] Comment on above: Order Comment: Speci men Type: BLOOD SPECIMENOrdering Facility: [facility] Address: [address] [place] [address] Performed By: #### 5 7021-8 ####[facility]ORYCLIA [id number] [address] Lymphocytes (Bld) [#/Vol] 1.41 10*3/uL Normal 1.00-4.00 [facility] Comment on above: Order Comment: Speci men Type: BLOOD SPECIMENOrdering Facility: [facility] Address: [address] [place] [address] Performed By: #### 5 7021-8 ####[facility]ORYCLIA [id number] [address] Lymphocytes/100 WBC (Bld) 18.4 % Normal [facility] Comment on above: Order Comment: Speci men Type: BLOOD SPECIMENOrdering Facility: [facility] Address: [address] [place] [address] Performed By: #### 5 7021-8 ####[facility]ORYCLIA [id number] [address] MCH (RBC) [Entitic mass] 28.0 pg Normal 26.0-34.0 [facility] Comment on above: Order Comment: Speci men Type: BLOOD SPECIMENOrdering Facility: [facility] Address: [address] [place] [address] Performed By: #### 5 7021-8 ####[facility]ATORYCLIA [id number] [address] MCHC (RBC) [Mass/Vol] 30.8 g/dL Normal 30.5-36.0 [facility] Comment on above: Order Comment: Speci men Type: BLOOD SPECIMENOrdering Facility: [facility] Address: [address] [place] [address] Performed By: #### 5 7021-8 ####[facility]ORATORYCLIA [id number] [address] [place] MCV (RBC) [Entitic vol] 91.0 fL Normal 80.0-100.0 [facility] Comment on above: Order Comment: Speci men Type: BLOOD SPECIMENOrdering Facility: [facility] Address: [address] [place] [address] Performed By: #### 5 7021-8 ####[facility] LABORATORYCLIA [id number] [address] [place] [facility] Monocytes (Bld) [#/Vol] 0.47 10*3/uL Normal <0.87 [facility] Comment on above: Order Comment: Speci men Type: BLOOD SPECIMENOrdering Facility: [facility] Address: [address] [place] [address] Performed By: #### 5 7021-8 ####[facility]ATORYCLIA [id number] [address] Monocytes/100 WBC (Bld) 6.1 % Normal [facility] Comment on above: Order Comment: Speci men Type: BLOOD SPECIMENOrdering Facility: [facility] Address: [address] [place] [address] Performed By: #### 5 7021-8 ####[facility]ATORYCLIA [id number] [address] [place] Neutrophils (Bld) [#/Vol] 5.55 10*3/uL Normal 1.45-7.50 [facility] Comment on above: Order Comment: Speci men Type: BLOOD SPECIMENOrdering Facility: [facility] Address: [address] [place], [place] [address] Performed By: #### 5 7021-8 ####[facility]ATORYCLIA [id number] [address] Neutrophils/100 WBC (Bld) 72.3 % Normal [facility] Comment on above: Order Comment: Speci men Type: BLOOD SPECIMENOrdering Facility: [facility] Address: [address] [place] [address] Performed By: #### 5 7021-8 ####[facility]ATORYCLIA [id number] [address] [place] Nucleated RBC (Bld) [#/Vol] 10*3/uL Normal <0.01 [facility] Comment on above: Order Comment: Speci men Type: BLOOD SPECIMENOrdering Facility: [facility] Address: [address] [place] [address] Performed By: #### 5 7021-8 ####[facility]ATORYCLIA [id number] [address] Nucleated RBC/100 WBC (Bld) [Ratio] 0.0 /100 WBC Normal [facility] Comment on above: Order Comment: Speci men Type: BLOOD SPECIMENOrdering Facility: [facility] Address: [address] [place] [address] Performed By: #### 5 7021-8 ####[facility]ATORYCLIA [id number] [address] [place] Platelet mean volume (Bld) [Entitic vol] 9.3 fL Normal 9.0-12.7 [facility] Comment on above: Order Comment: Speci men Type: BLOOD SPECIMENOrdering Facility: [facility] Address: [address] [place] [address] Performed By: #### 5 7021-8 ####[facility]ATORYCLIA [id number] [address] [place] Platelets (Bld) [#/Vol] 319 10*3/uL Normal 150-400 [facility] Comment on above: Order Comment: Speci men Type: BLOOD SPECIMENOrdering Facility: [facility] Address: [address] [place] [address] Performed By: #### 5 7021-8 ####[facility] LABORATORYCLIA [id number] [address] [place] RBC (Bld) [#/Vol] 3.21 10*6/uL Low 4.20-6.00 [facility] Comment on above: Order Comment: Speci men Type: BLOOD SPECIMENOrdering Facility: [facility] Address: [address] [place] [address] Performed By: #### 5 7021-8 ####[facility]ATORYCLIA [id number] [address] [place] WBC (Bld) [#/Vol] 7.67 10*3/uL Normal 3.70-11.00 [facility] Comment on above: Order Comment: Speci men Type: BLOOD SPECIMENOrdering Facility: [facility] Address: [address] [place] [address] Performed By: #### 5 7021-8 ####[facility]ATORYCLIA [id number] [address] [place] Basophils (Bld) [#/Vol] 0.04 10*3/uL Normal <0.11 [facility] Comment on above: Order Comment: Speci men Type: BLOOD SPECIMENOrdering Facility: [facility] Address: [address] [place] [address] Performed By: #### 5 7021-8 ####[facility]ATORYCLIA [id number] [address] [place] Basophils/100 WBC (Bld) 0.5 % Normal [facility] Comment on above: Order Comment: Speci men Type: BLOOD SPECIMENOrdering Facility: [facility] Address: [address] [place] [address] Performed By: #### 5 7021-8 ####[facility]ATORYCLIA [id number] [address] Differential cell count method Nom (Bld) Auto Normal [facility] Comment on above: Order Comment: Speci men Type: BLOOD SPECIMENOrdering Facility: [facility] Address: [address] [place] [address] Performed By: #### 5 7021-8 ####[facility]ATORYCLIA [id number] [address] [place] Eosinophils (Bld) [#/Vol] 0.19 10*3/uL Normal <0.46 [facility] Comment on above: Order Comment: Speci men Type: BLOOD SPECIMENOrdering Facility: [facility] Address: [address] [place] [address] Performed By: #### 5 7021-8 ####[facility]ATORYCLIA [id number] [address] Eosinophils/100 WBC (Bld) 2.5 % Normal [facility] Comment on above: Order Comment: Speci men Type: BLOOD SPECIMENOrdering Facility: [facility] Address: [address] [place] [address] Performed By: #### 5 7021-8 ####[facility]ATORYCLIA [id number] [address] Erythrocyte distribution width (RBC) [Ratio] 17.2 % High 11.5-15.0 [facility] Comment on above: Order Comment: Speci men Type: BLOOD SPECIMENOrdering Facility: [facility] Address: [address] [place] [address] Performed By: #### 5 7021-8 ####[facility]ATORYCLIA [id number] [address] [place] Hematocrit (Bld) [Volume fraction] 29.5 % Low 39.0-51.0 [facility] Comment on above: Order Comment: Speci men Type: BLOOD SPECIMENOrdering Facility: [facility] Address: [address] [place] [address] Performed By: #### 5 7021-8 ####[facility]ATORYCLIA [id number] [address] [place] [facility] Hemoglobin (Bld) [Mass/Vol] 9.2 g/dL Low 13.0-17.0 [facility] Comment on above: Order Comment: Speci men Type: BLOOD SPECIMENOrdering Facility: [facility] Address: [address] [place] [address] Performed By: #### 5 7021-8 ####[facility]ATORYCLIA [id number] [address] IMMATURE GRAN % 0.4 % Normal [facility] Comment on above: Order Comment: Speci men Type: BLOOD SPECIMENOrdering Facility: [facility] Address: [address] [place] [address] Performed By: #### 5 7021-8 ####[facility]ATORYCLIA [id number] [address] IMMATURE GRAN ABS 0.03 k/uL Normal <0.10 [facility] Comment on above: Order Comment: Speci men Type: BLOOD SPECIMENOrdering Facility: [facility] Address: [address] [place] [address] Performed By: #### 5 7021-8 ####[facility]ATORYCLIA [id number] [address] [place] Lymphocytes (Bld) [#/Vol] 1.50 10*3/uL Normal 1.00-4.00 [facility] Comment on above: Order Comment: Speci men Type: BLOOD SPECIMENOrdering Facility: [facility] Address: [address] [place] [address] Performed By: #### 5 7021-8 ####[facility]ATORYCLIA [id number] [address] Lymphocytes/100 WBC (Bld) 19.7 % Normal [facility] Comment on above: Order Comment: Speci men Type: BLOOD SPECIMENOrdering Facility: [facility] Address: [address] [place] [address] Performed By: #### 5 7021-8 ####[facility]ATORYCLIA [id number] [address] MCH (RBC) [Entitic mass] 28.3 pg Normal 26.0-34.0 [facility] Comment on above: Order Comment: Speci men Type: BLOOD SPECIMENOrdering Facility: [facility] Address: [address] [place] [address] Performed By: #### 5 7021-8 ####[facility]ATORYCLIA [id number] [address] MCHC (RBC) [Mass/Vol] 31.2 g/dL Normal 30.5-36.0 [facility] Comment on above: Order Comment: Speci men Type: BLOOD SPECIMENOrdering Facility: [facility] Address: [address] [place] [address] Performed By: #### 5 7021-8 ####[facility]ATORYCLIA [id number] [address] [place] [facility] MCV (RBC) [Entitic vol] 90.8 fL Normal 80.0-100.0 [facility] Comment on above: Order Comment: Speci men Type: BLOOD SPECIMENOrdering Facility: [facility] Address: [address] [place] [address] Performed By: #### 5 7021-8 ####[facility]ATORYCLIA [id number] [address] Monocytes (Bld) [#/Vol] 0.49 10*3/uL Normal <0.87 [facility] Comment on above: Order Comment: Speci men Type: BLOOD SPECIMENOrdering Facility: [facility] Address: [address] [place] [address] Performed By: #### 5 7021-8 ####[facility]ATORYCLIA [id number] [address] Monocytes/100 WBC (Bld) 6.4 % Normal [facility] Comment on above: Order Comment: Speci men Type: BLOOD SPECIMENOrdering Facility: [facility] Address: [address] [address] Performed By: #### 5 7021-8 ####[facility]ATORYCLIA [id number] [address] [place] Neutrophils (Bld) [#/Vol] 5.38 10*3/uL Normal 1.45-7.50 [facility] Comment on above: Order Comment: Speci men Type: BLOOD SPECIMENOrdering Facility: [facility] Address: [address] [place] [address] Performed By: #### 5 7021-8 ####[facility]ORATORYCLIA [id number] [address] [place] Neutrophils/100 WBC (Bld) 70.5 % Normal [facility] Comment on above: Order Comment: Speci men Type: BLOOD SPECIMENOrdering Facility: [facility] Address: [address] [place] [address] Performed By: #### 5 7021-8 ####[facility]ORATORYCLIA [id number] [address] [place] Nucleated RBC (Bld) [#/Vol] 10*3/uL Normal <0.01 [facility] Comment on above: Order Comment: Speci men Type: BLOOD SPECIMENOrdering Facility: [facility] Address: [address] [address] Performed By: #### 5 7021-8 ####[facility]ORATORYCLIA [id number] [address] [place] Nucleated RBC/100 WBC (Bld) [Ratio] 0.0 /100 WBC Normal [facility] Comment on above: Order Comment: Speci men Type: BLOOD SPECIMENOrdering Facility: [facility] Address: [address] [address] Performed By: #### 5 7021-8 ####[facility]ORATORYCLIA [id number] [place] [address] [place] Platelet mean volume (Bld) [Entitic vol] 9.0 fL Normal 9.0-12.7 [facility] Comment on above: Order Comment: Speci men Type: BLOOD SPECIMENOrdering Facility: [facility] Address: [address] [place] [address] Performed By: #### 5 7021-8 ####[facility]ATORYCLIA [id number] [place] [address] [place] Platelets (Bld) [#/Vol] 316 10*3/uL Normal 150-400 [facility] Comment on above: Order Comment: Speci men Type: BLOOD SPECIMENOrdering Facility: [facility] Address: [address] [place] [address] Performed By: #### 5 7021-8 ####[facility]ATORYCLIA [id number] [place] [address] [place] RBC (Bld) [#/Vol] 3.25 10*6/uL Low 4.20-6.00 [facility] Comment on above: Order Comment: Speci men Type: BLOOD SPECIMENOrdering Facility: [facility] Address: [address] [place] [address] Performed By: #### 5 7021-8 ####[facility]ATORYCLIA [id number] [address] [place] WBC (Bld) [#/Vol] 7.63 10*3/uL Normal 3.70-11.00 [facility] Comment on above: Order Comment: Speci men Type: BLOOD SPECIMENOrdering Facility: [facility] Address: [address] [place] [address] Performed By: #### 5 7021-8 ####[facility]ATORYCLIA [id number] [address] [place] Basophils (Bld) [#/Vol] Normal <0.11 [facility] Comment on above: Order Comment: Speci men Type: BLOOD SPECIMENOrdering Facility: [facility] Address: [address] [place] [address] Result Comment: Carolina Owens RN informed lab after results autoverified that she rd on the wrong patient. Lab to credit. Nurse to redraw on correct patient.Corrected result: Previously reported as 0.04 k/uL on 08/16/2021 at 4:44 AM EDT. Performed By: #### 5 7021-8 ####[facility]ATORYCLIA [id number] [address] [place] [facility] Basophils/100 WBC (Bld) Normal [facility] Comment on above: Order Comment: Johni francia Type: BLOOD SPECIMENOrdering Facility: [facility] Address: [address] [place] [address] Result Comment: Tati ected result: Previously reported as 0.4 % on 08/16/2021 at 4:44 AM EDT. Performed By: #### 5 7021-8 ####[facility]ATORYCLIA [id number] [address] [place] [facility] CBC W Differential panel, method unspecified (Bld) Normal [facility] Comment on above: Order Comment: Speccara feldman Type: BLOOD SPECIMENOrdering Facility: [facility] Address: [address] [place] [address] Result Comment: Carolina Owens RN informed lab after results autoverified that she rd on the wrong patient. Lab to credit. Nurse to redraw on correct patient. Performed By: #### 5 7021-8 ####[facility]ATORYCLIA [id number] [address] [place] [facility] Differential cell count method Nom (Bld) Normal [facility] Comment on above: Order Comment: Speci francia Type: BLOOD SPECIMENOrdering Facility: [facility] Address: [address] [place] [address] Result Comment: Carolina Owens RN informed lab after results autoverified that she rd on the wrong patient. Lab to credit. Nurse to redraw on correct patient.Corrected result: Previously reported as Auto on 08/16/2021 at 4:44 AM EDT. Performed By: #### 5 7021-8 ####[facility]ATORYCLIA [id number] [address] Eosinophils (Bld) [#/Vol] Normal <0.46 [facility] Comment on above: Order Comment: Speci men Type: BLOOD SPECIMENOrdering Facility: [facility] Address: [address] [place] [address] Result Comment: Carolina Owens RN informed lab after results autoverified that she rd on the wrong patient. Lab to credit. Nurse to redraw on correct patient.Corrected result: Previously reported as 0.07 k/uL on 08/16/2021 at 4:44 AM EDT. Performed By: #### 5 7021-8 ####[facility]ATORYCLIA [id number] [address] Eosinophils/100 WBC (Bld) Normal [facility] Comment on above: Order Comment: Speci men Type: BLOOD SPECIMENOrdering Facility: [facility] Address: [address] [place] [address] Result Comment: Carolina Owens RN informed lab after results autoverified that she rd on the wrong patient. Lab to credit. Nurse to redraw on correct patient.Corrected result: Previously reported as 0.7 % on 08/16/2021 at 4:44 AM EDT. Performed By: #### 5 7021-8 ####[facility]ATORYCLIA [id number] [address] Erythrocyte distribution width (RBC) [Ratio] Normal 11.5-15.0 [facility] Comment on above: Order Comment: Speci men Type: BLOOD SPECIMENOrdering Facility: [facility] Address: [address] [place] [address] Result Comment: Carolina Owens RN informed lab after results autoverified that she rd on the wrong patient. Lab to credit. Nurse to redraw on correct patient.Corrected result: Previously reported as 14.2 % on 08/16/2021 at 4:44 AM EDT. Performed By: #### 5 7021-8 ####[facility]ATORYCLIA [id number] [address] Hematocrit (Bld) [Volume fraction] Normal 39.0-51.0 [facility] Comment on above: Order Comment: Speci men Type: BLOOD SPECIMENOrdering Facility: [facility] Address: [address] [place] [address] Result Comment: Carolina Owens RN informed lab after results autoverified that she rd on the wrong patient. Lab to credit. Nurse to redraw on correct patient.Corrected result: Previously reported as 34.3 % on 08/16/2021 at 4:44 AM EDT. Performed By: #### 5 7021-8 ####[facility]ATORYCLIA [id number] [address] Hemoglobin (Bld) [Mass/Vol] Normal 13.0-17.0 [facility] Comment on above: Order Comment: Speci men Type: BLOOD SPECIMENOrdering Facility: [facility] Address: [address] [place] [address] Result Comment: Carolina Owesn RN informed lab after results autoverified that she rd on the wrong patient. Lab to credit. Nurse to redraw on correct patient.Corrected result: Previously reported as 11.2 g/dL on 08/16/2021 at 4:44 AM EDT. Performed By: #### 5 7021-8 ####[facility]ATORYCLIA [id number] [address] [place] IMMATURE GRAN % Normal [facility] Comment on above: Order Comment: Speci men Type: BLOOD SPECIMENOrdering Facility: [facility] Address: [address] [place] [address] Result Comment: Carolina Owens RN informed lab after results autoverified that she rd on the wrong patient. Lab to credit. Nurse to redraw on correct patient.Corrected result: Previously reported as 0.8 % on 08/16/2021 at 4:44 AM EDT. Performed By: #### 5 7021-8 ####[facility]ATORYCLIA [id number] [address] [place] [facility] IMMATURE GRAN ABS Normal <0.10 [facility] Comment on above: Order Comment: Speci men Type: BLOOD SPECIMENOrdering Facility: [facility] Address: [address] [place] [address] Result Comment: Tati ected result: Previously reported as 0.08 k/uL on 08/16/2021 at 4:44 AM EDT. Performed By: #### 5 7021-8 ####[facility]ATORYCLIA [id number] [address] Lymphocytes (Bld) [#/Vol] Normal 1.00-4.00 [facility] Comment on above: Order Comment: Speci [facility] Type: BLOOD SPECIMENOrdering Facility: [facility] Address: [address] [place] [address] Result Comment: Carolina Owens RN informed lab after results autoverified that she rd on the wrong patient. Lab to credit. Nurse to redraw on correct patient.Corrected result: Previously reported as 1.17 k/uL on 08/16/2021 at 4:44 AM EDT. Performed By: #### 5 7021-8 ####[facility]ATORYCLIA [id number] [address] Lymphocytes/100 WBC (Bld) Normal [facility] Comment on above: Order Comment: Speci men Type: BLOOD SPECIMENOrdering Facility: [facility] Address: [address] [place] [address] Result Comment: Carolina Owens RN informed lab after results autoverified that she rd on the wrong patient. Lab to credit. Nurse to redraw on correct patient.Corrected result: Previously reported as 12.0 % on 08/16/2021 at 4:44 AM EDT. Performed By: #### 5 7021-8 ####[facility]ORATORYCLIA [id number] [place] [address] [place] MCHC (RBC) [Mass/Vol] Normal 30.5-36.0 [facility] Comment on above: Order Comment: Speci men Type: BLOOD SPECIMENOrdering Facility: [facility] Address: [address] [place] [address] Result Comment: Carolina Owens RN informed lab after results autoverified that she rd on the wrong patient. Lab to credit. Nurse to redraw on correct patient.Corrected result: Previously reported as 32.7 g/dL on 08/16/2021 at 4:44 AM EDT. Performed By: #### 5 7021-8 ####[facility]ATORYCLIA [id number] [address] MCV (RBC) [Entitic vol] Normal 80.0-100.0 [facility] Comment on above: Order Comment: Speci men Type: BLOOD SPECIMENOrdering Facility: [facility] Address: [address] [place] [address] Result Comment: Carolina Owens RN informed lab after results autoverified that she rd on the wrong patient. Lab to credit. Nurse to redraw on correct patient.Corrected result: Previously reported as 94.2 fL on 08/16/2021 at 4:44 AM EDT. Performed By: #### 5 7021-8 ####[facility]ATORYCLIA [id number] [address] [place] Monocytes (Bld) [#/Vol] Normal <0.87 [facility] Comment on above: Order Comment: Speci men Type: BLOOD SPECIMENOrdering Facility: [facility] Address: [address] [place] [address] Result Comment: Carolina Owens RN informed lab after results autoverified that she rd on the wrong patient. Lab to credit. Nurse to redraw on correct patient.Corrected result: Previously reported as 0.99 k/uL on 08/16/2021 at 4:44 AM EDT. Performed By: #### 5 7021-8 ####[facility]ATORYCLIA [id number] [address] [place] Monocytes/100 WBC (Bld) Normal [facility] Comment on above: Order Comment: Speci francia Type: BLOOD SPECIMENOrdering Facility: [facility] Address: [address] [place] [address] Result Comment: Carolina Owens RN informed lab after results autoverified that she rd on the wrong patient. Lab to credit. Nurse to redraw on correct patient.Corrected result: Previously reported as 10.2 % on 08/16/2021 at 4:44 AM EDT. Performed By: #### 5 7021-8 ####[facility]ATORYCLIA [id number] [address] [place] Neutrophils (Bld) [#/Vol] Normal 1.45-7.50 [facility] Comment on above: Order Comment: Speccara feldman Type: BLOOD SPECIMENOrdering Facility: [facility] Address: [address] [place] [address] Result Comment: Carolina Owens RN informed lab after results autoverified that she rd on the wrong patient. Lab to credit. Nurse to redraw on correct patient.Corrected result: Previously reported as 7.40 k/uL on 08/16/2021 at 4:44 AM EDT. Performed By: #### 5 7021-8 ####[facility]ATORYCLIA [id number] [address] [place] [facility] Neutrophils/100 WBC (Bld) Normal [facility] Comment on above: Order Comment: Speci francia Type: BLOOD SPECIMENOrdering Facility: [facility] Address: [address] [place] [address] Result Comment: Carolina Owens RN informed lab after results autoverified that she rd on the wrong patient. Lab to credit. Nurse to redraw on correct patient.Corrected result: Previously reported as 75.9 % on 08/16/2021 at 4:44 AM EDT. Performed By: #### 5 7021-8 ####[facility]ATORYCLIA [id number] [place] [address] [place] Platelet mean volume (Bld) [Entitic vol] Normal 9.0-12.7 [facility] Comment on above: Order Comment: Speci men Type: BLOOD SPECIMENOrdering Facility: [facility] Address: [address] [place] [address] Result Comment: Carolina Owens RN informed lab after results autoverified that she rd on the wrong patient. Lab to credit. Nurse to redraw on correct patient.Corrected result: Previously reported as 9.1 fL on 08/16/2021 at 4:44 AM EDT. Performed By: #### 5 7021-8 ####[facility]ATORYCLIA [id number] [place] [address] [place] Platelets (Bld) [#/Vol] Normal 150-400 [facility] Comment on above: Order Comment: Speci men Type: BLOOD SPECIMENOrdering Facility: [facility] Address: [address] [place] [address] Result Comment: Carolina Owens RN informed lab after results autoverified that she rd on the wrong patient. Lab to credit. Nurse to redraw on correct patient.Corrected result: Previously reported as 338 k/uL on 08/16/2021 at 4:44 AM EDT. Performed By: #### 5 7021-8 ####[facility]ATORYCLIA [id number] [place] [address] [place] RBC (Bld) [#/Vol] Normal 4.20-6.00 [facility] Comment on above: Order Comment: Speci men Type: BLOOD SPECIMENOrdering Facility: [facility] Address: [address] [place] [address] Result Comment: Carolina Owens RN informed lab after results autoverified that she rd on the wrong patient. Lab to credit. Nurse to redraw on correct patient.Corrected result: Previously reported as 3.64 m/uL on 08/16/2021 at 4:44 AM EDT. Performed By: #### 5 7021-8 ####[facility]ORYCLIA [id number] [place] [address] [facility] [place] WBC (Bld) [#/Vol] Normal 3.70-11.00 [facility] Comment on above: Order Comment: Speci men Type: BLOOD SPECIMENOrdering Facility: [facility] Address: [address] [place] [address] Result Comment: Carolina Owens RN informed lab after results autoverified that she rd on the wrong patient. Lab to credit. Nurse to redraw on correct patient.Corrected result: Previously reported as 9.75 k/uL on 08/16/2021 at 4:44 AM EDT. Performed By: #### 5 7021-8 ####[facility]ORYCLIA [id number] [address] [place] CONSULT PROGon 08-16-2021 CONSULT PROG [facility] Magnesium SerPl-mCncon 08-16 Magnesium [Mass/Vol] 1.8 mg/dL Normal 1.7-2.3 [facility] Comment on above: Order Comment: Speci men Type: BLOOD SPECIMENOrdering Facility: [facility] Address: [address] [place] [address] Performed By: #### 2 4321-2, 90371-9 ####[facility]ORYCLIA [id number] [place] [address] [place] NURSING PROGon 08-16-2021 NURSING PROG Normal [facility] Basic metabolic 2000 panelon 08-15-2021 Anion gap [Moles/Vol] 13 mmol/L Normal 9-18 [facility] Comment on above: Order Comment: Speci men Type: BLOOD SPECIMENOrdering Facility: [facility] Address: [address] [place] [address] Performed By: #### 2 4321-2 ####[facility]ORYCLIA [id number] [place] [address] [place] Calcium [Mass/Vol] 9.0 mg/dL Normal 8.5-10.2 [facility] Comment on above: Order Comment: Speci men Type: BLOOD SPECIMENOrdering Facility: [facility] Address: [address] [address] Performed By: #### 2 4321-2 ####[facility]ATORYCLIA [id number] [place] [address] [place] Chloride [Moles/Vol] 95 mmol/L Low 97-105 [facility] Comment on above: Order Comment: Speci men Type: BLOOD SPECIMENOrdering Facility: [facility] Address: [address] [place] [address] Performed By: #### 2 4321-2 ####[facility]ATORYCLIA [id number] [place] [address] [place] CO2 [Moles/Vol] 28 mmol/L Normal 22-30 [facility] Comment on above: Order Comment: Speci men Type: BLOOD SPECIMENOrdering Facility: [facility] Address: [address] [place] [address] Performed By: #### 2 4321-2 ####[facility]ORYCLIA [id number] [address] [place] [facility] Creatinine [Mass/Vol] 0.50 mg/dL Low 0.73-1.22 [facility] Comment on above: Order Comment: Speci men Type: BLOOD SPECIMENOrdering Facility: [facility] Address: [address] [place] [address] Performed By: #### 2 4321-2 ####[facility]ORYCLIA [id number] [address] ESTIMATED GLOMERULAR FILTRATION RATE 110 mL/min/1.73m??? Normal >=60 [facility] Comment on above: Order Comment: Speci men Type: BLOOD SPECIMENOrdering Facility: [facility] Address: [address] [place] [address] Result Comment: Luzmaria mated Glomerular Filtration Rate [...] actual GFR. Performed By: #### 2 4321-2 ####[facility]ATORYCLIA [id number] [place] [address] [place] Glucose [Mass/Vol] 106 mg/dL High 74-99 [facility] Comment on above: Order Comment: Shira feldman Type: BLOOD SPECIMENOrdering Facility: [facility] Address: [address] [place] [address] Result Comment: The [place] [employer] [...] 2016.39(Suppl 1). Performed By: #### 2 4321-2 ####[facility]ATORYCLIA [id number] [place] [address] [place] Potassium [Moles/Vol] 3.3 mmol/L Low 3.7-5.1 [facility] Comment on above: Order Comment: Shira feldman Type: BLOOD SPECIMENOrdering Facility: [facility] Address: [address] [address] Performed By: #### 2 4321-2 ####[facility]ORYCLIA [id number] [place] [address] [place] Sodium [Moles/Vol] 136 mmol/L Normal 136-144 [facility] Comment on above: Order Comment: Shira feldman Type: BLOOD SPECIMENOrdering Facility: [facility] Address: [address] [address] Performed By: #### 2 4321-2 ####[facility]ORYCLIA [id number] [address] [place] Urea nitrogen [Mass/Vol] 11 mg/dL Normal 9-24 [facility] Comment on above: Order Comment: Speci men Type: BLOOD SPECIMENOrdering Facility: [facility] Address: [address] [place] [address] Performed By: #### 2 4321-2 ####[facility]ORYCLIA [id number] [address] [place] CASE MANAGEMon 08-15-2021 CASE MANAGEM Normal [facility] CBC W Auto Differential pane l (Bld)on 08-15-2021 Basophils (Bld) [#/Vol] 0.03 10*3/uL Normal <0.11 [facility] Comment on above: Order Comment: Speci men Type: BLOOD SPECIMENOrdering Facility: [facility] Address: [address] [place] [address] Performed By: #### 5 7021-8 ####[facility]ORYCLIA [id number] [address] [place] Basophils/100 WBC (Bld) 0.4 % Normal [facility] Comment on above: Order Comment: Speci men Type: BLOOD SPECIMENOrdering Facility: [facility] Address: [address] [place] [address] Performed By: #### 5 7021-8 ####[facility]ORYCLIA [id number] [address] [place] [facility] Differential cell count method Nom (Bld) Auto Normal [facility] Comment on above: Order Comment: Speci men Type: BLOOD SPECIMENOrdering Facility: [facility] Address: [address] [place] [address] Performed By: #### 5 7021-8 ####[facility]ATORYCLIA [id number] [place] [address] [place] Eosinophils (Bld) [#/Vol] 0.20 10*3/uL Normal <0.46 [facility] Comment on above: Order Comment: Speci men Type: BLOOD SPECIMENOrdering Facility: [facility] Address: [address] [place] [address] Performed By: #### 5 7021-8 ####[facility]ATORYCLIA [id number] [address] [place] [facility] Eosinophils/100 WBC (Bld) 2.5 % Normal [facility] Comment on above: Order Comment: Speci men Type: BLOOD SPECIMENOrdering Facility: [facility] Address: [address] [place] [address] Performed By: #### 5 7021-8 ####[facility]ATORYCLIA [id number] [address] Erythrocyte distribution width (RBC) [Ratio] 16.7 % High 11.5-15.0 [facility] Comment on above: Order Comment: Speci men Type: BLOOD SPECIMENOrdering Facility: [facility] Address: [address] [place] [address] Performed By: #### 5 7021-8 ####[facility]ATORYCLIA [id number] [address] Hematocrit (Bld) [Volume fraction] 30.3 % Low 39.0-51.0 [facility] Comment on above: Order Comment: Speci men Type: BLOOD SPECIMENOrdering Facility: [facility] Address: [address] [place] [address] Performed By: #### 5 7021-8 ####[facility]ATORYCLIA [id number] [address] [place] Hemoglobin (Bld) [Mass/Vol] 9.4 g/dL Low 13.0-17.0 [facility] Comment on above: Order Comment: Speci men Type: BLOOD SPECIMENOrdering Facility: [facility] Address: [address] [place] [address] Performed By: #### 5 7021-8 ####[facility]ORYCLIA [id number] [address] [place] IMMATURE GRAN % 0.4 % Normal [facility] Comment on above: Order Comment: Speci men Type: BLOOD SPECIMENOrdering Facility: [facility] Address: [address] [place] [address] Performed By: #### 5 7021-8 ####[facility]ORYCLIA [id number] [address] IMMATURE GRAN ABS 0.03 k/uL Normal <0.10 [facility] Comment on above: Order Comment: Speci men Type: BLOOD SPECIMENOrdering Facility: [facility] Address: [address] [place] [address] Performed By: #### 5 7021-8 ####[facility]ORYCLIA [id number] [address] Lymphocytes (Bld) [#/Vol] 1.50 10*3/uL Normal 1.00-4.00 [facility] Comment on above: Order Comment: Speci men Type: BLOOD SPECIMENOrdering Facility: [facility] Address: [address] [place] [address] Performed By: #### 5 7021-8 ####[facility]ORYCLIA [id number] [address] Lymphocytes/100 WBC (Bld) 18.5 % Normal [facility] Comment on above: Order Comment: Speci men Type: BLOOD SPECIMENOrdering Facility: [facility] Address: [address] [place] [address] Performed By: #### 5 7021-8 ####[facility]ATORYCLIA [id number] [address] [place] [facility] MCH (RBC) [Entitic mass] 29.0 pg Normal 26.0-34.0 [facility] Comment on above: Order Comment: Speci men Type: BLOOD SPECIMENOrdering Facility: [facility] Address: [address] [place] [address] Performed By: #### 5 7021-8 ####[facility]ATORYCLIA [id number] [address] [place] [facility] MCHC (RBC) [Mass/Vol] 31.0 g/dL Normal 30.5-36.0 [facility] Comment on above: Order Comment: Speci men Type: BLOOD SPECIMENOrdering Facility: [facility] Address: [address] [place] [address] Performed By: #### 5 7021-8 ####[facility]ORYCLIA [id number] [address] MCV (RBC) [Entitic vol] 93.5 fL Normal 80.0-100.0 [facility] Comment on above: Order Comment: Speci men Type: BLOOD SPECIMENOrdering Facility: [facility] Address: [address] [place] [address] Performed By: #### 5 7021-8 ####[facility]ORYCLIA [id number] [address] [place] Monocytes (Bld) [#/Vol] 0.47 10*3/uL Normal <0.87 [facility] Comment on above: Order Comment: Speci men Type: BLOOD SPECIMENOrdering Facility: [facility] Address: [address] [place] [address] Performed By: #### 5 7021-8 ####[facility]ORYCLIA [id number] [address] Monocytes/100 WBC (Bld) 5.8 % Normal [facility] Comment on above: Order Comment: Speci men Type: BLOOD SPECIMENOrdering Facility: [facility] Address: [address] [place] [address] Performed By: #### 5 7021-8 ####[facility]ORYCLIA [id number] [address] [place] Neutrophils (Bld) [#/Vol] 5.87 10*3/uL Normal 1.45-7.50 [facility] Comment on above: Order Comment: Speci men Type: BLOOD SPECIMENOrdering Facility: [facility] Address: [address] [place] [address] Performed By: #### 5 7021-8 ####[facility]ORYCLIA [id number] [address] Neutrophils/100 WBC (Bld) 72.4 % Normal [facility] Comment on above: Order Comment: Speci men Type: BLOOD SPECIMENOrdering Facility: [facility] Address: [address] [place] [address] Performed By: #### 5 7021-8 ####[facility]ORYCLIA [id number] [address] Nucleated RBC (Bld) [#/Vol] 10*3/uL Normal <0.01 [facility] Comment on above: Order Comment: Speci men Type: BLOOD SPECIMENOrdering Facility: [facility] Address: [address] [place] [address] Performed By: #### 5 7021-8 ####[facility]ORYCLIA [id number] [address] Nucleated RBC/100 WBC (Bld) [Ratio] 0.0 /100 WBC Normal [facility] Comment on above: Order Comment: Speci men Type: BLOOD SPECIMENOrdering Facility: [facility] Address: [address] [place] [address] Performed By: #### 5 7021-8 ####[facility]ORYCLIA [id number] [address] Platelet mean volume (Bld) [Entitic vol] 9.4 fL Normal 9.0-12.7 [facility] Comment on above: Order Comment: Speci men Type: BLOOD SPECIMENOrdering Facility: [facility] Address: [address] [place] [address] Performed By: #### 5 7021-8 ####[facility]ORYCLIA [id number] [address] [place] Platelets (Bld) [#/Vol] 290 10*3/uL Normal 150-400 [facility] Comment on above: Order Comment: Speci men Type: BLOOD SPECIMENOrdering Facility: [facility] Address: [address] [place] [address] Performed By: #### 5 7021-8 ####[facility]ATORYCLIA [id number] [address] [place] [facility] RBC (Bld) [#/Vol] 3.24 10*6/uL Low 4.20-6.00 [facility] Comment on above: Order Comment: Speci men Type: BLOOD SPECIMENOrdering Facility: [facility] Address: [address] [place] [address] Performed By: #### 5 7021-8 ####[facility]ATORYCLIA [id number] [address] [place] [facility] WBC (Bld) [#/Vol] 8.10 10*3/uL Normal 3.70-11.00 [facility] Comment on above: Order Comment: Speci men Type: BLOOD SPECIMENOrdering Facility: [facility] Address: [address] [place] [address] Performed By: #### 5 7021-8 ####[facility]ATORYCLIA [id number] [address] [facility] THERAPY NTon 08-15-2021 THERAPY NT Normal [facility] THERAPY NT Normal [facility] THERAPY NT Normal [facility] Basic metabolic 2000 panelon 08-14-2021 Anion gap [Moles/Vol] 10 mmol/L Normal 9-18 [facility] Comment on above: Order Comment: Speci men Type: BLOOD SPECIMENOrdering Facility: [facility] Address: [address] [place] [address] Performed By: #### 2 4321-2 ####[facility]ATORYCLIA [id number] [address] [place] Calcium [Mass/Vol] 8.8 mg/dL Normal 8.5-10.2 [facility] Comment on above: Order Comment: Speci men Type: BLOOD SPECIMENOrdering Facility: [facility] Address: [address] [place] [address] Performed By: #### 2 4321-2 ####[facility]ATORYCLIA [id number] [place] [address] [place] Chloride [Moles/Vol] 92 mmol/L Low 97-105 [facility] Comment on above: Order Comment: Speci men Type: BLOOD SPECIMENOrdering Facility: [facility] Address: [address] [place] [address] Performed By: #### 2 4321-2 ####[facility]ATORYCLIA [id number] [place] [address] [place] CO2 [Moles/Vol] 29 mmol/L Normal 22-30 [facility] Comment on above: Order Comment: Speci men Type: BLOOD SPECIMENOrdering Facility: [facility] Address: [address] [place] [address] Performed By: #### 2 4321-2 ####[facility]ATORYCLIA [id number] [place] [address] [place] Creatinine [Mass/Vol] 0.49 mg/dL Low 0.73-1.22 [facility] Comment on above: Order Comment: Speci men Type: BLOOD SPECIMENOrdering Facility: [facility] Address: [address] [place] [address] Performed By: #### 2 4321-2 ####[facility]ORYCLIA [id number] [address] [facility] ESTIMATED GLOMERULAR FILTRATION RATE 111 mL/min/1.73m??? Normal >=60 [facility] Comment on above: Order Comment: Speci men Type: BLOOD SPECIMENOrdering Facility: [facility] Address: [address] [place] [address] Result Comment: Luzmaria mated Glomerular Filtration Rate [...] actual GFR. Performed By: #### 2 4321-2 ####[facility]ATORYCLIA [id number] [place] [address] [place] Glucose [Mass/Vol] 104 mg/dL High 74-99 [facility] Comment on above: Order Comment: Shira feldman Type: BLOOD SPECIMENOrdering Facility: [facility] Address: [address] [id number] Result Comment: The [place] [employer] [...] 2016.39(Suppl 1). Performed By: #### 2 4321-2 ####[facility]ATORYCLIA [id number] [place] [address] [place] Potassium [Moles/Vol] 3.1 mmol/L Low 3.7-5.1 [facility] Comment on above: Order Comment: Shira feldman Type: BLOOD SPECIMENOrdering Facility: [facility] Address: [address] [place] [address] Performed By: #### 2 4321-2 ####[facility]ATORYCLIA [id number] [place] [address] [place] Sodium [Moles/Vol] 131 mmol/L Low 136-144 [facility] Comment on above: Order Comment: Shira feldman Type: BLOOD SPECIMENOrdering Facility: [facility] Address: [address] [address] Performed By: #### 2 4321-2 ####[facility]ATORYCLIA [id number] [address] [place] [facility] Urea nitrogen [Mass/Vol] 13 mg/dL Normal 9-24 [facility] Comment on above: Order Comment: Speci men Type: BLOOD SPECIMENOrdering Facility: [facility] Address: [address] [place] [address] Performed By: #### 2 4321-2 ####[facility]ORYCLIA [id number] [address] [place] CBC W Auto Differential pane l (Bld)on 08-14-2021 Basophils (Bld) [#/Vol] 10*3/uL Normal <0.11 [facility] Comment on above: Order Comment: Speci men Type: BLOOD SPECIMENOrdering Facility: [facility] Address: [address] [place] [address] Performed By: #### 5 7021-8 ####[facility]ATORYCLIA [id number] [address] [place] Basophils/100 WBC (Bld) 0.2 % Normal [facility] Comment on above: Order Comment: Speci men Type: BLOOD SPECIMENOrdering Facility: [facility] Address: [address] [place] [address] Performed By: #### 5 7021-8 ####[facility]ORYCLIA [id number] [address] Differential cell count method Nom (Bld) Auto Normal [facility] Comment on above: Order Comment: Speci men Type: BLOOD SPECIMENOrdering Facility: [facility] Address: [address] [place] [address] Performed By: #### 5 7021-8 ####[facility]ATORYCLIA [id number] [place] [address] [place] Eosinophils (Bld) [#/Vol] 0.23 10*3/uL Normal <0.46 [facility] Comment on above: Order Comment: Speci men Type: BLOOD SPECIMENOrdering Facility: [facility] Address: [address] [place] [address] Performed By: #### 5 7021-8 ####[facility]ATORYCLIA [id number] [address] [place] Eosinophils/100 WBC (Bld) 2.7 % Normal [facility] Comment on above: Order Comment: Speci men Type: BLOOD SPECIMENOrdering Facility: [facility] Address: [address] [place] [address] Performed By: #### 5 7021-8 ####[facility]ATORYCLIA [id number] [address] [place] Erythrocyte distribution width (RBC) [Ratio] 16.6 % High 11.5-15.0 [facility] Comment on above: Order Comment: Speci men Type: BLOOD SPECIMENOrdering Facility: [facility] Address: [address] [place] [address] Performed By: #### 5 7021-8 ####[facility]ORYCLIA [id number] [address] [place] Hematocrit (Bld) [Volume fraction] 28.6 % Low 39.0-51.0 [facility] Comment on above: Order Comment: Speci men Type: BLOOD SPECIMENOrdering Facility: [facility] Address: [address] [place] [address] Performed By: #### 5 7021-8 ####[facility]ATORYCLIA [id number] [address] [place] Hemoglobin (Bld) [Mass/Vol] 9.0 g/dL Low 13.0-17.0 [facility] Comment on above: Order Comment: Speci men Type: BLOOD SPECIMENOrdering Facility: [facility] Address: [address] [place] [address] Performed By: #### 5 7021-8 ####[facility]ATORYCLIA [id number] [address] IMMATURE GRAN % 0.2 % Normal [facility] Comment on above: Order Comment: Speci men Type: BLOOD SPECIMENOrdering Facility: [facility] Address: [address] [place] [address] Performed By: #### 5 7021-8 ####[facility]ORYCLIA [id number] [address] IMMATURE GRAN ABS <0.03 Normal <0.10 [facility] Comment on above: Order Comment: Speci men Type: BLOOD SPECIMENOrdering Facility: [facility] Address: [address] [place] [address] Performed By: #### 5 7021-8 ####[facility]ATORYCLIA [id number] [address] Lymphocytes (Bld) [#/Vol] 1.33 10*3/uL Normal 1.00-4.00 [facility] Comment on above: Order Comment: Speci men Type: BLOOD SPECIMENOrdering Facility: [facility] Address: [address] [place] [address] Performed By: #### 5 7021-8 ####[facility]ORYCLIA [id number] [address] Lymphocytes/100 WBC (Bld) 15.6 % Normal [facility] Comment on above: Order Comment: Speci men Type: BLOOD SPECIMENOrdering Facility: [facility] Address: [address] [place] [address] Performed By: #### 5 7021-8 ####[facility]ATORYCLIA [id number] [address] [facility] MCH (RBC) [Entitic mass] 29.0 pg Normal 26.0-34.0 [facility] Comment on above: Order Comment: Speci men Type: BLOOD SPECIMENOrdering Facility: [facility] Address: [address] [place] [address] Performed By: #### 5 7021-8 ####[facility]ATORYCLIA [id number] [address] [place] MCHC (RBC) [Mass/Vol] 31.5 g/dL Normal 30.5-36.0 [facility] Comment on above: Order Comment: Speci men Type: BLOOD SPECIMENOrdering Facility: [facility] Address: [address] [place] [address] Performed By: #### 5 7021-8 ####[facility]ATORYCLIA [id number] [address] MCV (RBC) [Entitic vol] 92.3 fL Normal 80.0-100.0 [facility] Comment on above: Order Comment: Speci men Type: BLOOD SPECIMENOrdering Facility: [facility] Address: [address] [place] [address] Performed By: #### 5 7021-8 ####[facility]ATORYCLIA [id number] [address] [place] Monocytes (Bld) [#/Vol] 0.44 10*3/uL Normal <0.87 [facility] Comment on above: Order Comment: Speci men Type: BLOOD SPECIMENOrdering Facility: [facility] Address: [address] [place] [address] Performed By: #### 5 7021-8 ####[facility]ATORYCLIA [id number] [address] Monocytes/100 WBC (Bld) 5.2 % Normal [facility] Comment on above: Order Comment: Speci men Type: BLOOD SPECIMENOrdering Facility: [facility] Address: [address] [place] [address] Performed By: #### 5 7021-8 ####[facility]ATORYCLIA [id number] [address] [place] Neutrophils (Bld) [#/Vol] 6.46 10*3/uL Normal 1.45-7.50 [facility] Comment on above: Order Comment: Speci men Type: BLOOD SPECIMENOrdering Facility: [facility] Address: [address] [address] Performed By: #### 5 7021-8 ####[facility]ATORYCLIA [id number] [address] Neutrophils/100 WBC (Bld) 76.1 % Normal [facility] Comment on above: Order Comment: Speci men Type: BLOOD SPECIMENOrdering Facility: [facility] Address: [address] [place] [address] Performed By: #### 5 7021-8 ####[facility] LABORATORYCLIA [id number] [address] Nucleated RBC (Bld) [#/Vol] 10*3/uL Normal <0.01 [facility] Comment on above: Order Comment: Speci men Type: BLOOD SPECIMENOrdering Facility: [facility] Address: [address] [place] [address] Performed By: #### 5 7021-8 ####[facility] LABORATORYCLIA [id number] [address] Nucleated RBC/100 WBC (Bld) [Ratio] 0.0 /100 WBC Normal [facility] Comment on above: Order Comment: Speci men Type: BLOOD SPECIMENOrdering Facility: [facility] Address: [address] [place] [address] Performed By: #### 5 7021-8 ####[facility] LABORATORYCLIA [id number] [address] [place] Platelet mean volume (Bld) [Entitic vol] 9.5 fL Normal 9.0-12.7 [facility] Comment on above: Order Comment: Speci men Type: BLOOD SPECIMENOrdering Facility: [facility] Address: [address] [place] [address] Performed By: #### 5 7021-8 ####[facility] LABORATORYCLIA [id number] [address] [place] Platelets (Bld) [#/Vol] 247 10*3/uL Normal 150-400 [facility] Comment on above: Order Comment: Speci men Type: BLOOD SPECIMENOrdering Facility: [facility] Address: [address] [place] [address] Performed By: #### 5 7021-8 ####[facility] LABORATORYCLIA [id number] [place] [address] [place] [facility] RBC (Bld) [#/Vol] 3.10 10*6/uL Low 4.20-6.00 [facility] Comment on above: Order Comment: Speci men Type: BLOOD SPECIMENOrdering Facility: [facility] Address: [address] [place] [address] Performed By: #### 5 7021-8 ####[facility] LABORATORYCLIA [id number] [address] [place] WBC (Bld) [#/Vol] 8.50 10*3/uL Normal 3.70-11.00 [facility] Comment on above: Order Comment: Speci men Type: BLOOD SPECIMENOrdering Facility: [facility] Address: [address] [place] [address] Performed By: #### 5 7021-8 ####[facility] LABORATORYCLIA [id number] [address] [place] CONSULTon 08-14-2021 CONSULT Normal [facility] NURSING PROGon 08-14-2021 NURSING PROG Normal [facility] CBC W Auto Differential pane l (Bld)on 08-13-2021 Basophils (Bld) [#/Vol] 10*3/uL Normal <0.11 [facility] Comment on above: Order Comment: Speci men Type: BLOOD SPECIMENOrdering Facility: [facility] Address: [address] [place] [address] Performed By: #### 5 7021-8 ####[facility] LABORATORYCLIA [id number] [address] [place] Basophils/100 WBC (Bld) 0.2 % Normal [facility] Comment on above: Order Comment: Speci men Type: BLOOD SPECIMENOrdering Facility: [facility] Address: [address] [place] [address] Performed By: #### 5 7021-8 ####[facility] LABORATORYCLIA [id number] [address] Differential cell count method Nom (Bld) Auto Normal [facility] Comment on above: Order Comment: Speci men Type: BLOOD SPECIMENOrdering Facility: [facility] Address: [address] [place] [address] Performed By: #### 5 7021-8 ####[facility] LABORATORYCLIA [id number] [address] Eosinophils (Bld) [#/Vol] 0.31 10*3/uL Normal <0.46 [facility] Comment on above: Order Comment: Speci men Type: BLOOD SPECIMENOrdering Facility: [facility] Address: [address] [place] [address] Performed By: #### 5 7021-8 ####[facility] LABORATORYCLIA [id number] [address] Eosinophils/100 WBC (Bld) 3.7 % Normal [facility] Comment on above: Order Comment: Speci men Type: BLOOD SPECIMENOrdering Facility: [facility] Address: [address] [place] [address] Performed By: #### 5 7021-8 ####[facility] LABORATORYCLIA [id number] [address] Erythrocyte distribution width (RBC) [Ratio] 16.6 % High 11.5-15.0 [facility] Comment on above: Order Comment: Speci men Type: BLOOD SPECIMENOrdering Facility: [facility] Address: [address] [place] [address] Performed By: #### 5 7021-8 ####[facility] LABORATORYCLIA [id number] [address] [place] Hematocrit (Bld) [Volume fraction] 27.5 % Low 39.0-51.0 [facility] Comment on above: Order Comment: Speci men Type: BLOOD SPECIMENOrdering Facility: [facility] Address: [address] [place] [address] Performed By: #### 5 7021-8 ####[facility] LABORATORYCLIA [id number] [address] Hemoglobin (Bld) [Mass/Vol] 8.4 g/dL Low 13.0-17.0 [facility] Comment on above: Order Comment: Speci men Type: BLOOD SPECIMENOrdering Facility: [facility] Address: [address] [place] [address] Performed By: #### 5 7021-8 ####[facility] LABORATORYCLIA [id number] [address] IMMATURE GRAN % 0.5 % Normal [facility] Comment on above: Order Comment: Speci men Type: BLOOD SPECIMENOrdering Facility: [facility] Address: [address] [place] [address] Performed By: #### 5 7021-8 ####[facility] LABORATORYCLIA [id number] [address] IMMATURE GRAN ABS 0.04 k/uL Normal <0.10 [facility] Comment on above: Order Comment: Speci men Type: BLOOD SPECIMENOrdering Facility: [facility] Address: [address] [place] [address] Performed By: #### 5 7021-8 ####[facility] LABORATORYCLIA [id number] [address] Lymphocytes (Bld) [#/Vol] 1.55 10*3/uL Normal 1.00-4.00 [facility] Comment on above: Order Comment: Speci men Type: BLOOD SPECIMENOrdering Facility: [facility] Address: [address] [place] [address] Performed By: #### 5 7021-8 ####[facility] LABORATORYCLIA [id number] [address] Lymphocytes/100 WBC (Bld) 18.7 % Normal [facility] Comment on above: Order Comment: Speci men Type: BLOOD SPECIMENOrdering Facility: [facility] Address: [address] [place] [address] Performed By: #### 5 7021-8 ####[facility] LABORATORYCLIA [id number] [address] MCH (RBC) [Entitic mass] 28.9 pg Normal 26.0-34.0 [facility] Comment on above: Order Comment: Speci men Type: BLOOD SPECIMENOrdering Facility: [facility] Address: [address] [place] [address] Performed By: #### 5 7021-8 ####[facility] LABORATORYCLIA [id number] [address] MCHC (RBC) [Mass/Vol] 30.5 g/dL Normal 30.5-36.0 [facility] Comment on above: Order Comment: Speci men Type: BLOOD SPECIMENOrdering Facility: [facility] Address: [address] [place] [address] Performed By: #### 5 7021-8 ####[facility] LABORATORYCLIA [id number] [address] MCV (RBC) [Entitic vol] 94.5 fL Normal 80.0-100.0 [facility] Comment on above: Order Comment: Speci men Type: BLOOD SPECIMENOrdering Facility: [facility] Address: [address] [place] [address] Performed By: #### 5 7021-8 ####[facility] LABORATORYCLIA [id number] [address] Monocytes (Bld) [#/Vol] 0.47 10*3/uL Normal <0.87 [facility] Comment on above: Order Comment: Speci men Type: BLOOD SPECIMENOrdering Facility: [facility] Address: [address] [place] [address] Performed By: #### 5 7021-8 ####[facility]ORATORYCLIA [id number] [address] Monocytes/100 WBC (Bld) 5.7 % Normal [facility] Comment on above: Order Comment: Speci men Type: BLOOD SPECIMENOrdering Facility: [facility] Address: [address] [place] [address] Performed By: #### 5 7021-8 ####[facility] LABORATORYCLIA [id number] [address] [place] Neutrophils (Bld) [#/Vol] 5.92 10*3/uL Normal 1.45-7.50 [facility] Comment on above: Order Comment: Speci men Type: BLOOD SPECIMENOrdering Facility: [facility] Address: [address] [place] [address] Performed By: #### 5 7021-8 ####[facility]ORATORYCLIA [id number] [address] Neutrophils/100 WBC (Bld) 71.2 % Normal [facility] Comment on above: Order Comment: Speci men Type: BLOOD SPECIMENOrdering Facility: [facility] Address: [address] [place] [address] Performed By: #### 5 7021-8 ####[facility]ORATORYCLIA [id number] [address] [place] Nucleated RBC (Bld) [#/Vol] 10*3/uL Normal <0.01 [facility] Comment on above: Order Comment: Speci men Type: BLOOD SPECIMENOrdering Facility: [facility] Address: [address] [place] [address] Performed By: #### 5 7021-8 ####[facility] LABORATORYCLIA [id number] [address] [place] Nucleated RBC/100 WBC (Bld) [Ratio] 0.0 /100 WBC Normal [facility] Comment on above: Order Comment: Speci men Type: BLOOD SPECIMENOrdering Facility: [facility] Address: [address] [place] [address] Performed By: #### 5 7021-8 ####[facility] LABORATORYCLIA [id number] [address] [place] Platelet mean volume (Bld) [Entitic vol] 9.9 fL Normal 9.0-12.7 [facility] Comment on above: Order Comment: Speci men Type: BLOOD SPECIMENOrdering Facility: [facility] Address: [address] [place] [address] Performed By: #### 5 7021-8 ####[facility] LABORATORYCLIA [id number] [address] [place] Platelets (Bld) [#/Vol] 203 10*3/uL Normal 150-400 [facility] Comment on above: Order Comment: Speci men Type: BLOOD SPECIMENOrdering Facility: [facility] Address: [address] [place] [address] Performed By: #### 5 7021-8 ####[facility] LABORATORYCLIA [id number] [address] [place] RBC (Bld) [#/Vol] 2.91 10*6/uL Low 4.20-6.00 [facility] Comment on above: Order Comment: Speci men Type: BLOOD SPECIMENOrdering Facility: [facility] Address: [address] [place], [place] [address] Performed By: #### 5 7021-8 ####[facility] LABORATORYCLIA [id number] [address] [place] WBC (Bld) [#/Vol] 8.31 10*3/uL Normal 3.70-11.00 [facility] Comment on above: Order Comment: Speci men Type: BLOOD SPECIMENOrdering Facility: [facility] Address: [address] [place] [address] Performed By: #### 5 7021-8 ####[facility] LABORATORYCLIA [id number] [address] [facility] aPTT PPPon 08-13-2021 aPTT Coag (PPP) [Time] 69.7 s High 23.0-32.4 [facility] Comment on above: Order Comment: Speci men Type: BLOOD SPECIMENOrdering Facility: [facility] Address: [address] [place], [place] [address] Performed By: #### 1 4979-9 ####[facility] LABORATORYCLIA [id number] [address] [place] [facility] aPTT Coag (PPP) [Time] 70.6 s High 23.0-32.4 [facility] Comment on above: Order Comment: Speci men Type: BLOOD SPECIMENOrdering Facility: [facility] Address: [address] [place], [place] [address] Performed By: #### 1 4979-9 ####[facility] LABORATORYCLIA [id number] [address] [place] ALLIED HEALTHon 08-12-2021 ALLIED HEALTH Normal [facility] ALLIED HEALTH Normal [facility] Basic metabolic 2000 panelon 08-12-2021 Anion gap [Moles/Vol] 7 mmol/L Low 9-18 [facility] Comment on above: Order Comment: Speci men Type: BLOOD SPECIMENOrdering Facility: [facility] Address: [address] [place], [place] [address] Performed By: #### 2 4321-2, , 2776-05 ####[facility] LABORATORYCLIA [id number] [address] [place] [facility] Calcium [Mass/Vol] 8.8 mg/dL Normal 8.5-10.2 [facility] Comment on above: Order Comment: Speci men Type: BLOOD SPECIMENOrdering Facility: [facility] Address: [address] [place], [place] [address] Performed By: #### 2 4321-2, , 2776-05 ####[facility] LABORATORYCLIA [id number] [place] [address] [place] Chloride [Moles/Vol] 96 mmol/L Low 97-105 [facility] Comment on above: Order Comment: Speci men Type: BLOOD SPECIMENOrdering Facility: [facility] Address: [address] [place] [address] Performed By: #### 2 4321-2, , 2776-05 ####[facility] LABORATORYCLIA [id number] [address] [place] [facility] CO2 [Moles/Vol] 32 mmol/L High 22-30 [facility] Comment on above: Order Comment: Speci men Type: BLOOD SPECIMENOrdering Facility: [facility] Address: [address] [place] [address] Performed By: #### 2 4321-2, , 2776-05 ####[facility] LABORATORYCLIA [id number] [address] Creatinine [Mass/Vol] 0.52 mg/dL Low 0.73-1.22 [facility] Comment on above: Order Comment: Speci men Type: BLOOD SPECIMENOrdering Facility: [facility] Address: [address] [place] [address] Performed By: #### 2 4321-2, , 2776-05 ####[facility] LABORATORYCLIA [id number] [address] ESTIMATED GLOMERULAR FILTRATION RATE 109 mL/min/1.73m??? Normal >=60 [facility] Comment on above: Order Comment: Speci men Type: BLOOD SPECIMENOrdering Facility: [facility] Address: [address] [place] [address] Result Comment: Luzmaria mated Glomerular Filtration Rate [...] Performed By: #### 2 4321-2, , 2776-05 ####[facility] LABORATORYCLIA [id number] [place] [address] [place] Glucose [Mass/Vol] 119 mg/dL High 74-99 [facility] Comment on above: Order Comment: Shira feldman Type: BLOOD SPECIMENOrdering Facility: [facility] Address: [address] [place], [place] [address] Result Comment: [employer] [place] [employer] [...] Performed By: #### 2 4321-2, , 2776-05 ####[facility] LABORATORYCLIA [id number] [place] [address] [place] Potassium [Moles/Vol] 3.7 mmol/L Normal 3.7-5.1 [facility] Comment on above: Order Comment: Shira feldman Type: BLOOD SPECIMENOrdering Facility: [facility] Address: [address] [place] [address] Performed By: #### 2 4321-2, , 2776-05 ####[facility] LABORATORYCLIA [id number] [place] [address] [place] Sodium [Moles/Vol] 135 mmol/L Low 136-144 [facility] Comment on above: Order Comment: Shira feldman Type: BLOOD SPECIMENOrdering Facility: [facility] Address: [address] [place] [address] Performed By: #### 2 4321-2, 17520-3, 2771 ####[facility]ORATORYCLIA [id number] [address] [place] [facility] Urea nitrogen [Mass/Vol] 20 mg/dL Normal 9-24 [facility] Comment on above: Order Comment: Speci men Type: BLOOD SPECIMENOrdering Facility: [facility] Address: [address] [place] [address] Performed By: #### 2 4321-2, , 27711-04 ####[facility] LABORATORYCLIA [id number] [address] CASE MANAGEMon 08-12-2021 CASE MANAGEM Normal [facility] CBC W Auto Differential pane l (Bld)on 08-12-2021 Basophils (Bld) [#/Vol] 0.04 10*3/uL Normal <0.11 [facility] Comment on above: Order Comment: Speci men Type: BLOOD SPECIMENOrdering Facility: [facility] Address: [address] [place] [address] Performed By: #### 5 7021-8 ####[facility]ORATORYCLIA [id number] [address] [place] Basophils/100 WBC (Bld) 0.5 % Normal [facility] Comment on above: Order Comment: Speci men Type: BLOOD SPECIMENOrdering Facility: [facility] Address: [address] [place] [address] Performed By: #### 5 7021-8 ####[facility]ORATORYCLIA [id number] [address] [place] [facility] Differential cell count method Nom (Bld) Auto Normal [facility] Comment on above: Order Comment: Speci men Type: BLOOD SPECIMENOrdering Facility: [facility] Address: [address] [place] [address] Performed By: #### 5 7021-8 ####[facility]ORATORYCLIA [id number] [address] [place] Eosinophils (Bld) [#/Vol] 0.19 10*3/uL Normal <0.46 [facility] Comment on above: Order Comment: Speci men Type: BLOOD SPECIMENOrdering Facility: [facility] Address: [address] [place] [address] Performed By: #### 5 7021-8 ####[facility] LABORATORYCLIA [id number] [address] [place] Eosinophils/100 WBC (Bld) 2.3 % Normal [facility] Comment on above: Order Comment: Speci men Type: BLOOD SPECIMENOrdering Facility: [facility] Address: [address] [place] [address] Performed By: #### 5 7021-8 ####[facility]ORATORYCLIA [id number] [address] [place] [facility] Erythrocyte distribution width (RBC) [Ratio] 17.1 % High 11.5-15.0 [facility] Comment on above: Order Comment: Speci men Type: BLOOD SPECIMENOrdering Facility: [facility] Address: [address] [place] [address] Performed By: #### 5 7021-8 ####[facility]ORATORYCLIA [id number] [address] [place] Hematocrit (Bld) [Volume fraction] 25.3 % Low 39.0-51.0 [facility] Comment on above: Order Comment: Speci men Type: BLOOD SPECIMENOrdering Facility: [facility] Address: [address] [place] [address] Performed By: #### 5 7021-8 ####[facility]ORATORYCLIA [id number] [address] [place] Hemoglobin (Bld) [Mass/Vol] 7.9 g/dL Low 13.0-17.0 [facility] Comment on above: Order Comment: Speci men Type: BLOOD SPECIMENOrdering Facility: [facility] Address: [address] [place] [address] Performed By: #### 5 7021-8 ####[facility]ORATORYCLIA [id number] [address] IMMATURE GRAN % 0.5 % Normal [facility] Comment on above: Order Comment: Speci men Type: BLOOD SPECIMENOrdering Facility: [facility] Address: [address] [place] [address] Performed By: #### 5 7021-8 ####[facility]ORATORYCLIA [id number] [address] IMMATURE GRAN ABS 0.04 k/uL Normal <0.10 [facility] Comment on above: Order Comment: Speci men Type: BLOOD SPECIMENOrdering Facility: [facility] Address: [address] [place] [address] Performed By: #### 5 7021-8 ####[facility]ORATORYCLIA [id number] [address] Lymphocytes (Bld) [#/Vol] 1.69 10*3/uL Normal 1.00-4.00 [facility] Comment on above: Order Comment: Speci men Type: BLOOD SPECIMENOrdering Facility: [facility] Address: [address] [place] [address] Performed By: #### 5 7021-8 ####[facility]ORATORYCLIA [id number] [address] Lymphocytes/100 WBC (Bld) 20.1 % Normal [facility] Comment on above: Order Comment: Speci men Type: BLOOD SPECIMENOrdering Facility: [facility] Address: [address] [place] [address] Performed By: #### 5 7021-8 ####[facility]ORATORYCLIA [id number] [address] [place] MCH (RBC) [Entitic mass] 28.5 pg Normal 26.0-34.0 [facility] Comment on above: Order Comment: Speci men Type: BLOOD SPECIMENOrdering Facility: [facility] Address: [address] [place] [address] Performed By: #### 5 7021-8 ####[facility]ORATORYCLIA [id number] [address] [place] MCHC (RBC) [Mass/Vol] 31.2 g/dL Normal 30.5-36.0 [facility] Comment on above: Order Comment: Speci men Type: BLOOD SPECIMENOrdering Facility: [facility] Address: [address] [place] [address] Performed By: #### 5 7021-8 ####[facility]ORATORYCLIA [id number] [address] [place] MCV (RBC) [Entitic vol] 91.3 fL Normal 80.0-100.0 [facility] Comment on above: Order Comment: Speci men Type: BLOOD SPECIMENOrdering Facility: [facility] Address: [address] [place] [address] Performed By: #### 5 7021-8 ####[facility]ORATORYCLIA [id number] [address] [place] Monocytes (Bld) [#/Vol] 0.53 10*3/uL Normal <0.87 [facility] Comment on above: Order Comment: Speci men Type: BLOOD SPECIMENOrdering Facility: [facility] Address: [address] [place] [address] Performed By: #### 5 7021-8 ####[facility]ORATORYCLIA [id number] [address] Monocytes/100 WBC (Bld) 6.3 % Normal [facility] Comment on above: Order Comment: Speci men Type: BLOOD SPECIMENOrdering Facility: [facility] Address: [address] [place] [address] Performed By: #### 5 7021-8 ####[facility]ORATORYCLIA [id number] [address] [place] Neutrophils (Bld) [#/Vol] 5.90 10*3/uL Normal 1.45-7.50 [facility] Comment on above: Order Comment: Speci men Type: BLOOD SPECIMENOrdering Facility: [facility] Address: [address] [place] [address] Performed By: #### 5 7021-8 ####[facility]ORATORYCLIA [id number] [address] [place] Neutrophils/100 WBC (Bld) 70.3 % Normal [facility] Comment on above: Order Comment: Speci men Type: BLOOD SPECIMENOrdering Facility: [facility] Address: [address] [place] [address] Performed By: #### 5 7021-8 ####[facility]ORATORYCLIA [id number] [address] [place] Nucleated RBC (Bld) [#/Vol] 10*3/uL Normal <0.01 [facility] Comment on above: Order Comment: Speci men Type: BLOOD SPECIMENOrdering Facility: [facility] Address: [address] [place] [address] Performed By: #### 5 7021-8 ####[facility]ATORYCLIA [id number] [address] [place] Nucleated RBC/100 WBC (Bld) [Ratio] 0.0 /100 WBC Normal [facility] Comment on above: Order Comment: Speci men Type: BLOOD SPECIMENOrdering Facility: [facility] Address: [address] [place] [address] Performed By: #### 5 7021-8 ####[facility]ORATORYCLIA [id number] [address] [place] Platelet mean volume (Bld) [Entitic vol] 9.8 fL Normal 9.0-12.7 [facility] Comment on above: Order Comment: Speci men Type: BLOOD SPECIMENOrdering Facility: [facility] Address: [address] [place] [address] Performed By: #### 5 7021-8 ####[facility]ATORYCLIA [id number] [address] Platelets (Bld) [#/Vol] 164 10*3/uL Normal 150-400 [facility] Comment on above: Order Comment: Speci men Type: BLOOD SPECIMENOrdering Facility: [facility] Address: [address] [place] [address] Performed By: #### 5 7021-8 ####[facility]ATORYCLIA [id number] [address] [place] RBC (Bld) [#/Vol] 2.77 10*6/uL Low 4.20-6.00 [facility] Comment on above: Order Comment: Speci men Type: BLOOD SPECIMENOrdering Facility: [facility] Address: [address] [place] [address] Performed By: #### 5 7021-8 ####[facility]ATORYCL[facility] [id number] [address] WBC (Bld) [#/Vol] 8.39 10*3/uL Normal 3.70-11.00 [facility] Comment on above: Order Comment: Speci men Type: BLOOD SPECIMENOrdering Facility: [facility] Address: [address] [place] [address] Performed By: #### 5 7021-8 ####[facility]ORATORYCLIA [id number] [address] [place]RA[place] WO IVCONon 08-13-19 CT BRAIN WO IVCON Normal [facility] CT BRAIN WO IVCON Normal [facility] Magnesium SerPl-mCncon 08-12 Magnesium [Mass/Vol] 2.0 mg/dL Normal 1.7-2.3 [facility] Comment on above: Order Comment: Speci men Type: BLOOD SPECIMENOrdering Facility: [facility] Address: [address] [place] [address] Performed By: #### 2 4321-2, 48305-3, 2777-1 ####[facility]ATORYCLIA [id number] [address] Phosphate SerPl-mCncon 08-12 Phosphate [Mass/Vol] 2.9 mg/dL Normal 2.7-4.8 [facility] Comment on above: Order Comment: Speci men Type: BLOOD SPECIMENOrdering Facility: [facility] Address: [address] [place] [address] Performed By: #### 2 4321-2, 68899-0, 2777-1 ####[facility]ATORYCLIA [id number] [address] THERAPY NTon 08-12-2021 THERAPY NT Normal [facility] THERAPY NT Normal [facility] aPTT PPPon 08-12-2021 aPTT Coag (PPP) [Time] 94.2 s High 23.0-32.4 [facility] Comment on above: Order Comment: Speci men Type: BLOOD SPECIMENOrdering Facility: [facility] Address: [address] [place] [address] Performed By: #### 1 4979-9 ####[facility]ATORYCLIA [id number] [address] aPTT Coag (PPP) [Time] 84.4 s High 23.0-32.4 [facility] Comment on above: Order Comment: Speci men Type: BLOOD SPECIMENOrdering Facility: [facility] Address: [address] [place] [address] Performed By: #### 1 4979-9 ####[facility]ATORYCLIA [id number] [address] aPTT Coag (PPP) [Time] 71.3 s High 23.0-32.4 [facility] Comment on above: Order Comment: Speci men Type: BLOOD SPECIMENOrdering Facility: [facility] Address: [address] [place] [address] Performed By: #### 1 4979-9 ####[facility]ATORYCLIA [id number] [address] [place] ALLIED HEALTHon 08-11-2021 ALLIED HEALTH Normal [facility] CBC W Auto Differential pane l (Bld)on 08-11-2021 Basophils (Bld) [#/Vol] 10*3/uL Normal <0.11 [facility] Comment on above: Order Comment: Speci men Type: BLOOD SPECIMENOrdering Facility: [facility] Address: [address] [place] [address] Performed By: #### 5 7021-8 ####[facility]ATORYCLIA [id number] [address] Basophils/100 WBC (Bld) 0.2 % Normal [facility] Comment on above: Order Comment: Speci men Type: BLOOD SPECIMENOrdering Facility: [facility] Address: [address] [place] [address] Performed By: #### 5 7021-8 ####[facility]ORYCLIA [id number] [address] Differential cell count method Nom (Bld) Auto Normal [facility] Comment on above: Order Comment: Speci men Type: BLOOD SPECIMENOrdering Facility: [facility] Address: [address] [place] [address] Performed By: #### 5 7021-8 ####[facility]ATORYCLIA [id number] [address] [place] Eosinophils (Bld) [#/Vol] 0.16 10*3/uL Normal <0.46 [facility] Comment on above: Order Comment: Speci men Type: BLOOD SPECIMENOrdering Facility: [facility] Address: [address] [place] [address] Performed By: #### 5 7021-8 ####[facility]ATORYCLIA [id number] [address] [place] Eosinophils/100 WBC (Bld) 1.8 % Normal [facility] Comment on above: Order Comment: Speci men Type: BLOOD SPECIMENOrdering Facility: [facility] Address: [address] [place] [address] Performed By: #### 5 7021-8 ####[facility]ATORYCLIA [id number] [address] Erythrocyte distribution width (RBC) [Ratio] 17.3 % High 11.5-15.0 [facility] Comment on above: Order Comment: Speci men Type: BLOOD SPECIMENOrdering Facility: [facility] Address: [address] [place] [address] Performed By: #### 5 7021-8 ####[facility]ATORYCLIA [id number] [address] Hematocrit (Bld) [Volume fraction] 26.6 % Low 39.0-51.0 [facility] Comment on above: Order Comment: Speci men Type: BLOOD SPECIMENOrdering Facility: [facility] Address: [address] [place] [address] Performed By: #### 5 7021-8 ####[facility]ATORYCLIA [id number] [address] Hemoglobin (Bld) [Mass/Vol] 8.2 g/dL Low 13.0-17.0 [facility] Comment on above: Order Comment: Speci men Type: BLOOD SPECIMENOrdering Facility: [facility] Address: [address] [place] [address] Performed By: #### 5 7021-8 ####[facility]ATORYCLIA [id number] [address] IMMATURE GRAN % 0.6 % Normal [facility] Comment on above: Order Comment: Speci men Type: BLOOD SPECIMENOrdering Facility: [facility] Address: [address] [place] [address] Performed By: #### 5 7021-8 ####[facility]ORYCLIA [id number] [address] IMMATURE GRAN ABS 0.05 k/uL Normal <0.10 [facility] Comment on above: Order Comment: Speci men Type: BLOOD SPECIMENOrdering Facility: [facility] Address: [address] [place] [address] Performed By: #### 5 7021-8 ####[facility]ATORYCLIA [id number] [address] [place] Lymphocytes (Bld) [#/Vol] 1.40 10*3/uL Normal 1.00-4.00 [facility] Comment on above: Order Comment: Speci men Type: BLOOD SPECIMENOrdering Facility: [facility] Address: [address] [place] [address] Performed By: #### 5 7021-8 ####[facility]ATORYCLIA [id number] [address] Lymphocytes/100 WBC (Bld) 15.8 % Normal [facility] Comment on above: Order Comment: Speci men Type: BLOOD SPECIMENOrdering Facility: [facility] Address: [address] [place] [address] Performed By: #### 5 7021-8 ####[facility]ATORYCLIA [id number] [address] MCH (RBC) [Entitic mass] 28.4 pg Normal 26.0-34.0 [facility] Comment on above: Order Comment: Speci men Type: BLOOD SPECIMENOrdering Facility: [facility] Address: [address] [place] [address] Performed By: #### 5 7021-8 ####[facility]ATORYCLIA [id number] [address] MCHC (RBC) [Mass/Vol] 30.8 g/dL Normal 30.5-36.0 [facility] Comment on above: Order Comment: Speci men Type: BLOOD SPECIMENOrdering Facility: [facility] Address: [address] [address] Performed By: #### 5 7021-8 ####[facility]ATORYCLIA [id number] [address] [place] MCV (RBC) [Entitic vol] 92.0 fL Normal 80.0-100.0 [facility] Comment on above: Order Comment: Speci men Type: BLOOD SPECIMENOrdering Facility: [facility] Address: [address] [place] [address] Performed By: #### 5 7021-8 ####[facility]ATORYCLIA [id number] [address] [place] Monocytes (Bld) [#/Vol] 0.61 10*3/uL Normal <0.87 [facility] Comment on above: Order Comment: Speci men Type: BLOOD SPECIMENOrdering Facility: [facility] Address: [address] [place] [address] Performed By: #### 5 7021-8 ####[facility]ATORYCLIA [id number] [address] [place] [facility] Monocytes/100 WBC (Bld) 6.9 % Normal [facility] Comment on above: Order Comment: Speci men Type: BLOOD SPECIMENOrdering Facility: [facility] Address: [address] [place] [address] Performed By: #### 5 7021-8 ####[facility]ATORYCLIA [id number] [address] [place] Neutrophils (Bld) [#/Vol] 6.62 10*3/uL Normal 1.45-7.50 [facility] Comment on above: Order Comment: Speci men Type: BLOOD SPECIMENOrdering Facility: [facility] Address: [address] [place] [address] Performed By: #### 5 7021-8 ####[facility]ATORYCLIA [id number] [address] [place] Neutrophils/100 WBC (Bld) 74.7 % Normal [facility] Comment on above: Order Comment: Speci men Type: BLOOD SPECIMENOrdering Facility: [facility] Address: [address] [address] Performed By: #### 5 7021-8 ####[facility]ATORYCLIA [id number] [address] [place] Nucleated RBC (Bld) [#/Vol] 10*3/uL Normal <0.01 [facility] Comment on above: Order Comment: Speci men Type: BLOOD SPECIMENOrdering Facility: [facility] Address: [address] [place] [address] Performed By: #### 5 7021-8 ####[facility]ATORYCLIA [id number] [address] [place] Nucleated RBC/100 WBC (Bld) [Ratio] 0.0 /100 WBC Normal [facility] Comment on above: Order Comment: Speci men Type: BLOOD SPECIMENOrdering Facility: [facility] Address: [address] [place] [address] Performed By: #### 5 7021-8 ####[facility]ATORYCLIA [id number] [address] [place] Platelet mean volume (Bld) [Entitic vol] 9.8 fL Normal 9.0-12.7 [facility] Comment on above: Order Comment: Speci men Type: BLOOD SPECIMENOrdering Facility: [facility] Address: [address] [place], [place] [address] Performed By: #### 5 7021-8 ####[facility]ATORYCLIA [id number] [address] [place] Platelets (Bld) [#/Vol] 157 10*3/uL Normal 150-400 [facility] Comment on above: Order Comment: Speci men Type: BLOOD SPECIMENOrdering Facility: [facility] Address: [address] [place] [address] Performed By: #### 5 7021-8 ####[facility]ATORYCLIA [id number] [address] [facility] RBC (Bld) [#/Vol] 2.89 10*6/uL Low 4.20-6.00 [facility] Comment on above: Order Comment: Speci men Type: BLOOD SPECIMENOrdering Facility: [facility] Address: [address] [place] [address] Performed By: #### 5 7021-8 ####[facility]ORYCLIA [id number] [address] [facility] WBC (Bld) [#/Vol] 8.86 10*3/uL Normal 3.70-11.00 [facility] Comment on above: Order Comment: Speci men Type: BLOOD SPECIMENOrdering Facility: [facility] Address: [address] [place] [address] Performed By: #### 5 7021-8 ####[facility]ORYCLIA [id number] [address] CBC panel Auto (Bld)on 08-11 Erythrocyte distribution width (RBC) [Ratio] 17.2 % High 11.5-15.0 [facility] Comment on above: Order Comment: Speci men Type: BLOOD SPECIMENOrdering Facility: [facility] Address: [address] [place] [address] Performed By: #### 5 8410-2 ####[facility]ORYCLIA [id number] [address] Hematocrit (Bld) [Volume fraction] 27.0 % Low 39.0-51.0 [facility] Comment on above: Order Comment: Speci men Type: BLOOD SPECIMENOrdering Facility: [facility] Address: [address] [place] [address] Performed By: #### 5 8410-2 ####[facility]ORYCLIA [id number] [address] [facility] Hemoglobin (Bld) [Mass/Vol] 8.3 g/dL Low 13.0-17.0 [facility] Comment on above: Order Comment: Speci men Type: BLOOD SPECIMENOrdering Facility: [facility] Address: [address] [place] [address] Performed By: #### 5 8410-2 ####[facility]ORYCLIA [id number] [address] MCH (RBC) [Entitic mass] 28.7 pg Normal 26.0-34.0 [facility] Comment on above: Order Comment: Speci men Type: BLOOD SPECIMENOrdering Facility: [facility] Address: [address] [place] [address] Performed By: #### 5 8410-2 ####[facility]ORYCLIA [id number] [address] MCHC (RBC) [Mass/Vol] 30.7 g/dL Normal 30.5-36.0 [facility] Comment on above: Order Comment: Speci men Type: BLOOD SPECIMENOrdering Facility: [facility] Address: [address] [place] [address] Performed By: #### 5 8410-2 ####[facility]ORYCLIA [id number] [address] MCV (RBC) [Entitic vol] 93.4 fL Normal 80.0-100.0 [facility] Comment on above: Order Comment: Speci men Type: BLOOD SPECIMENOrdering Facility: [facility] Address: [address] [place] [address] Performed By: #### 5 8410-2 ####[facility]ORYCLIA [id number] [address] Nucleated RBC (Bld) [#/Vol] 10*3/uL Normal <0.01 [facility] Comment on above: Order Comment: Speci men Type: BLOOD SPECIMENOrdering Facility: [facility] Address: [address] [place] [address] Performed By: #### 5 8410-2 ####[facility]ORYCLIA [id number] [address] Platelet mean volume (Bld) [Entitic vol] 9.8 fL Normal 9.0-12.7 [facility] Comment on above: Order Comment: Speci men Type: BLOOD SPECIMENOrdering Facility: [facility] Address: [address] [place] [address] Performed By: #### 5 8410-2 ####[facility]ATORYCLIA [id number] [address] [place] Platelets (Bld) [#/Vol] 169 10*3/uL Normal 150-400 [facility] Comment on above: Order Comment: Speci men Type: BLOOD SPECIMENOrdering Facility: [facility] Address: [address] [place] [address] Performed By: #### 5 8410-2 ####[facility]ATORYCLIA [id number] [address] [place] [facility] RBC (Bld) [#/Vol] 2.89 10*6/uL Low 4.20-6.00 [facility] Comment on above: Order Comment: Speci men Type: BLOOD SPECIMENOrdering Facility: [facility] Address: [address] [place] [address] Performed By: #### 5 8410-2 ####[facility]ORYCLIA [id number] [address] [place] WBC (Bld) [#/Vol] 9.03 10*3/uL Normal 3.70-11.00 [facility] Comment on above: Order Comment: Speci men Type: BLOOD SPECIMENOrdering Facility: [facility] Address: [address] [place] [address] Performed By: #### 5 8410-2 ####[facility]ATORYCLIA [id number] [address] [facility] CT BRAIN WO IVCONon 08-12-19 CT BRAIN WO IVCON Normal [facility] PT panel Coag (PPP)on 2021 INR Coag (PPP) [Relative time] 1.0 {INR} Normal 0.9-1.3 [facility] Comment on above: Order Comment: Shira feldman Type: BLOOD SPECIMENOrdering Facility: [facility] Address: [address] [id number] Result Comment: Yris min K Antagonist (VKA) [...] al. Chest 2012, 141:7S-47SNishimpatricia RA, et al. [facility] 2017, 70: 252-289 Performed By: #### 1 4979-9, 73734-8 ####[facility]ATORYCLIA [id number] [place] [address] [place] PT Coag (PPP) [Time] 11.4 s Normal 9.7-13.0 [facility] Comment on above: Order Comment: Shira feldman Type: BLOOD SPECIMENOrdering Facility: [facility] Address: [address] [place] [address] Performed By: #### 1 4979-9, 88633-8 ####[facility]ATORYCLIA [id number] [place] [address] [place] THERAPY NTon 08-11-2021 THERAPY NT Normal [facility] US DVT LOWER BILon 2 US DVT LOWER RAINER Normal [facility] US DVT UPPER BILon 2 US DVT UPPER RIANER Normal [facility] aPTT PPPon 08-11-2021 aPTT Coag (PPP) [Time] 26.9 s Normal 23.0-32.4 [facility] Comment on above: Order Comment: Speci men Type: BLOOD SPECIMENOrdering Facility: [facility] Address: [address] [place] [address] Performed By: #### 1 4979-9, 80742-0 ####[facility]ATORYCLIA [id number] [place] [address] [place] Basic metabolic 2000 panelon 08-10-2021 Anion gap [Moles/Vol] 11 mmol/L Normal 9-18 [facility] Comment on above: Order Comment: Speci men Type: BLOOD SPECIMENOrdering Facility: [facility] Address: [address] [place] [address] Performed By: #### 2 4321-2 ####[facility]ATORYCLIA [id number] [place] [address] [place] Calcium [Mass/Vol] 8.7 mg/dL Normal 8.5-10.2 [facility] Comment on above: Order Comment: Speci men Type: BLOOD SPECIMENOrdering Facility: [facility] Address: [address] [place] [address] Performed By: #### 2 4321-2 ####[facility]ORYCLIA [id number] [place] [address] [place] Chloride [Moles/Vol] 98 mmol/L Normal 97-105 [facility] Comment on above: Order Comment: Speci men Type: BLOOD SPECIMENOrdering Facility: [facility] Address: [address] [place] [address] Performed By: #### 2 4321-2 ####[facility]ORYCLIA [id number] [place] [address] [place] CO2 [Moles/Vol] 28 mmol/L Normal 22-30 [facility] Comment on above: Order Comment: Speci men Type: BLOOD SPECIMENOrdering Facility: [facility] Address: [address] [place] [address] Performed By: #### 2 4321-2 ####[facility]ATORYCLIA [id number] [address] [place] [facility] Creatinine [Mass/Vol] 0.59 mg/dL Low 0.73-1.22 [facility] Comment on above: Order Comment: Shira feldman Type: BLOOD SPECIMENOrdering Facility: [facility] Address: [address] [place] [address] Performed By: #### 2 4321-2 ####[facility]ATORYCLIA [id number] [address] ESTIMATED GLOMERULAR FILTRATION RATE 105 mL/min/1.73m??? Normal >=60 [facility] Comment on above: Order Comment: Shira feldman Type: BLOOD SPECIMENOrdering Facility: [facility] Address: [address] [place] [address] Result Comment: Luzmaria mated Glomerular Filtration Rate [...] actual GFR. Performed By: #### 2 4321-2 ####[facility]ATORYCLIA [id number] [address] [place] [facility] Glucose [Mass/Vol] 118 mg/dL High 74-99 [facility] Comment on above: Order Comment: Shira francia Type: BLOOD SPECIMENOrdering Facility: [facility] Address: [address] [place] [address] Result Comment: The [place] [employer] [...] 2016.39(Suppl 1). Performed By: #### 2 4321-2 ####[facility]ATORYCLIA [id number] [place] [address] [place] Potassium [Moles/Vol] 3.7 mmol/L Normal 3.7-5.1 [facility] Comment on above: Order Comment: Speci men Type: BLOOD SPECIMENOrdering Facility: [facility] Address: [address] [place] [address] Performed By: #### 2 4321-2 ####[facility]ATORYCLIA [id number] [place] [address] [place] Sodium [Moles/Vol] 137 mmol/L Normal 136-144 [facility] Comment on above: Order Comment: Speci men Type: BLOOD SPECIMENOrdering Facility: [facility] Address: [address] [place] [address] Performed By: #### 2 4321-2 ####[facility]ATORYCLIA [id number] [place] [address] [place] Urea nitrogen [Mass/Vol] 23 mg/dL Normal 9-24 [facility] Comment on above: Order Comment: Speci men Type: BLOOD SPECIMENOrdering Facility: [facility] Address: [address] [place] [address] Performed By: #### 2 4321-2 ####[facility]ATORYCLIA [id number] [place] [address] [place] Anion gap [Moles/Vol] 17 mmol/L Normal 9-18 [facility] Comment on above: Order Comment: Speci men Type: BLOOD SPECIMENOrdering Facility: [facility] Address: [address] [place] [address] Performed By: #### 1 9123-9, 2777-1, 34536-5 ####[facility]ATORYCLIA [id number] [place] [address] [place] Calcium [Mass/Vol] 7.7 mg/dL Low 8.5-10.2 [facility] Comment on above: Order Comment: Speci men Type: BLOOD SPECIMENOrdering Facility: [facility] Address: [address] [place] [address] Performed By: #### 1 9123-9, 27711-04, 75483-8 ####[facility]ATORYCLIA [id number] [place] [address] [place] Chloride [Moles/Vol] 86 mmol/L Low 97-105 [facility] Comment on above: Order Comment: Speci men Type: BLOOD SPECIMENOrdering Facility: [facility] Address: [address] [place] [address] Performed By: #### 1 9123-9, 27711-04, 90552-0 ####[facility]ORYCLIA [id number] [address] [place] CO2 [Moles/Vol] 24 mmol/L Normal 22-30 [facility] Comment on above: Order Comment: Speci men Type: BLOOD SPECIMENOrdering Facility: [facility] Address: [address] [place] [address] Performed By: #### 1 9123-9, 27711-04, 84247-8 ####[facility]ATORYCLIA [id number] [place] [address] [place] Creatinine [Mass/Vol] 0.53 mg/dL Low 0.73-1.22 [facility] Comment on above: Order Comment: Speci men Type: BLOOD SPECIMENOrdering Facility: [facility] Address: [address] [place] [address] Performed By: #### 1 9123-9, 27711-04, 97358-0 ####[facility]ORYCLIA [id number] [address] [place] ESTIMATED GLOMERULAR FILTRATION RATE 108 mL/min/1.73m??? Normal >=60 [facility] Comment on above: Order Comment: Shira feldman Type: BLOOD SPECIMENOrdering Facility: [facility] Address: [address] [place] [address] Result Comment: Luzmaria mated Glomerular Filtration Rate [...] GFR. Performed By: #### 1 9123-9, 2777-1, 16830-6 ####[facility] [id number] [place] [address] [place] Glucose [Mass/Vol] 455 mg/dL High 74-99 [facility] Comment on above: Order Comment: Shira feldman Type: BLOOD SPECIMENOrdering Facility: [facility] Address: [address] [place] [address] Result Comment: The [place] [employer] [...] 1). Performed By: #### 1 9123-9, 2777-1, 30331-7 ####[facility]ORYCLIA [id number] [place] [address] [place] Potassium [Moles/Vol] 3.4 mmol/L Low 3.7-5.1 [facility] Comment on above: Order Comment: Shira [facility] Type: BLOOD SPECIMENOrdering Facility: [facility] Address: [address] [place] [address] Performed By: #### 1 9123-9, 2777-1, 06935-5 ####[facility]ORYCLIA [id number] [address] [place] Sodium [Moles/Vol] 127 mmol/L Low 136-144 [facility] Comment on above: Order Comment: Speci men Type: BLOOD SPECIMENOrdering Facility: [facility] Address: [address] [place] [address] Performed By: #### 1 9123-9, 2777-1, 69872-9 ####[facility]ORYCL[facility] [id number] [address] [place] Urea nitrogen [Mass/Vol] 21 mg/dL Normal 9-24 [facility] Comment on above: Order Comment: Speci men Type: BLOOD SPECIMENOrdering Facility: [facility] Address: [address] [place] [address] Performed By: #### 1 9123-9, 2777-, 30298-3 ####[facility]ORY[facility] [id number] [address] [place] CASE MANAGEMon 08-10-2021 CASE MANAGEM Normal [facility] CBC W Auto Differential pane l (Bld)on 08-10-2021 Basophils (Bld) [#/Vol] 0.04 10*3/uL Normal <0.11 [facility] Comment on above: Order Comment: Speci men Type: BLOOD SPECIMENOrdering Facility: [facility] Address: [address] [place] [address] Performed By: #### 5 7021-8 ####[facility]ORYCL[facility] [id number] [address] [place] Basophils/100 WBC (Bld) 0.4 % Normal [facility] Comment on above: Order Comment: Speci men Type: BLOOD SPECIMENOrdering Facility: [facility] Address: [address] [place] [address] Performed By: #### 5 7021-8 ####[facility]ORYCLIA [id number] [address] Differential cell count method Nom (Bld) Auto Normal [facility] Comment on above: Order Comment: Speci men Type: BLOOD SPECIMENOrdering Facility: [facility] Address: [address] [place] [address] Performed By: #### 5 7021-8 ####[facility]ORYCLIA [id number] [address] Eosinophils (Bld) [#/Vol] 0.11 10*3/uL Normal <0.46 [facility] Comment on above: Order Comment: Speci men Type: BLOOD SPECIMENOrdering Facility: [facility] Address: [address] [place] [address] Performed By: #### 5 7021-8 ####[facility]ORYCLIA [id number] [address] Eosinophils/100 WBC (Bld) 1.1 % Normal [facility] Comment on above: Order Comment: Speci men Type: BLOOD SPECIMENOrdering Facility: [facility] Address: [address] [place] [address] Performed By: #### 5 7021-8 ####[facility]ORYCLIA [id number] [address] Erythrocyte distribution width (RBC) [Ratio] 17.2 % High 11.5-15.0 [facility] Comment on above: Order Comment: Speci men Type: BLOOD SPECIMENOrdering Facility: [facility] Address: [address] [place] [address] Performed By: #### 5 7021-8 ####[facility]ORYCLIA [id number] [address] Hematocrit (Bld) [Volume fraction] 25.5 % Low 39.0-51.0 [facility] Comment on above: Order Comment: Speci men Type: BLOOD SPECIMENOrdering Facility: [facility] Address: [address] [place] [address] Performed By: #### 5 7021-8 ####[facility]ORYCLIA [id number] [address] Hemoglobin (Bld) [Mass/Vol] 7.9 g/dL Low 13.0-17.0 [facility] Comment on above: Order Comment: Speci men Type: BLOOD SPECIMENOrdering Facility: [facility] Address: [address] [place] [address] Performed By: #### 5 7021-8 ####[facility]ORYCLIA [id number] [address] IMMATURE GRAN % 0.4 % Normal [facility] Comment on above: Order Comment: Speci men Type: BLOOD SPECIMENOrdering Facility: [facility] Address: [address] [place] [address] Performed By: #### 5 7021-8 ####[facility]ORYCLIA [id number] [address] IMMATURE GRAN ABS 0.04 k/uL Normal <0.10 [facility] Comment on above: Order Comment: Speci men Type: BLOOD SPECIMENOrdering Facility: [facility] Address: [address] [place] [address] Performed By: #### 5 7021-8 ####[facility]ORYCLIA [id number] [address] Lymphocytes (Bld) [#/Vol] 1.66 10*3/uL Normal 1.00-4.00 [facility] Comment on above: Order Comment: Speci men Type: BLOOD SPECIMENOrdering Facility: [facility] Address: [address] [place] [address] Performed By: #### 5 7021-8 ####[facility]ORYCLIA [id number] [address] Lymphocytes/100 WBC (Bld) 16.2 % Normal [facility] Comment on above: Order Comment: Speci men Type: BLOOD SPECIMENOrdering Facility: [facility] Address: [address] [place] [address] Performed By: #### 5 7021-8 ####[facility]ORYCLIA [id number] [address] MCH (RBC) [Entitic mass] 28.5 pg Normal 26.0-34.0 [facility] Comment on above: Order Comment: Speci men Type: BLOOD SPECIMENOrdering Facility: [facility] Address: [address] [place] [address] Performed By: #### 5 7021-8 ####[facility]ORYCLIA [id number] [address] MCHC (RBC) [Mass/Vol] 31.0 g/dL Normal 30.5-36.0 [facility] Comment on above: Order Comment: Speci men Type: BLOOD SPECIMENOrdering Facility: [facility] Address: [address] [place] [address] Performed By: #### 5 7021-8 ####[facility]ORYCLIA [id number] [address] MCV (RBC) [Entitic vol] 92.1 fL Normal 80.0-100.0 [facility] Comment on above: Order Comment: Speci men Type: BLOOD SPECIMENOrdering Facility: [facility] Address: [address] [place] [address] Performed By: #### 5 7021-8 ####[facility]ORYCLIA [id number] [address] Monocytes (Bld) [#/Vol] 0.51 10*3/uL Normal <0.87 [facility] Comment on above: Order Comment: Speci men Type: BLOOD SPECIMENOrdering Facility: [facility] Address: [address] [place] [address] Performed By: #### 5 7021-8 ####[facility]CLIA [id number] [address] [place] Monocytes/100 WBC (Bld) 5.0 % Normal [facility] Comment on above: Order Comment: Speci men Type: BLOOD SPECIMENOrdering Facility: [facility] Address: [address] [place] [address] Performed By: #### 5 7021-8 ####[facility]ORATORYCLIA [id number] [place] [address] [place] Neutrophils (Bld) [#/Vol] 7.91 10*3/uL High 1.45-7.50 [facility] Comment on above: Order Comment: Speci men Type: BLOOD SPECIMENOrdering Facility: [facility] Address: [address] [place] [address] Performed By: #### 5 7021-8 ####[facility]ORYCLIA [id number] [address] Neutrophils/100 WBC (Bld) 76.9 % Normal [facility] Comment on above: Order Comment: Speci men Type: BLOOD SPECIMENOrdering Facility: [facility] Address: [address] [place] [address] Performed By: #### 5 7021-8 ####[facility]ORYCLIA [id number] [address] [place] Nucleated RBC (Bld) [#/Vol] 10*3/uL Normal <0.01 [facility] Comment on above: Order Comment: Speci men Type: BLOOD SPECIMENOrdering Facility: [facility] Address: [address] [place] [address] Performed By: #### 5 7021-8 ####[facility]ATORYCLIA [id number] [address] [place] Nucleated RBC/100 WBC (Bld) [Ratio] 0.0 /100 WBC Normal [facility] Comment on above: Order Comment: Speci men Type: BLOOD SPECIMENOrdering Facility: [facility] Address: [address] Performed By: #### 5 7021-8 ####[facility]ATORYCLIA [id number] [address] Platelet mean volume (Bld) [Entitic vol] 10.3 fL Normal 9.0-12.7 [facility] Comment on above: Order Comment: Speci men Type: BLOOD SPECIMENOrdering Facility: [facility] Address: [address] [place], [place] [address] Performed By: #### 5 7021-8 ####[facility]ATORYCLIA [id number] [address] [place] Platelets (Bld) [#/Vol] 152 10*3/uL Normal 150-400 [facility] Comment on above: Order Comment: Speci men Type: BLOOD SPECIMENOrdering Facility: [facility] Address: [address] [place], [place] [address] Performed By: #### 5 7021-8 ####[facility]ORYCLIA [id number] [address] [place] RBC (Bld) [#/Vol] 2.77 10*6/uL Low 4.20-6.00 [facility] Comment on above: Order Comment: Speci men Type: BLOOD SPECIMENOrdering Facility: [facility] Address: [address] [place], [place] [address] Performed By: #### 5 7021-8 ####[facility]ATORYCLIA [id number] [address] [place] WBC (Bld) [#/Vol] 10.27 10*3/uL Normal 3.70-11.00 [facility] Comment on above: Order Comment: Speci men Type: BLOOD SPECIMENOrdering Facility: [facility] Address: [address] [place], [place] [address] Performed By: #### 5 7021-8 ####[facility]ORYCLIA [id number] [address] Magnesium SerPl-mCncon 08-10 Magnesium [Mass/Vol] 1.8 mg/dL Normal 1.7-2.3 [facility] Comment on above: Order Comment: Speci men Type: BLOOD SPECIMENOrdering Facility: [facility] Address: [address] [place] [address] Performed By: #### 1 9123-9, 2777-1, 47789-1 ####[facility]ORYCLIA [id number] [address] NURSING PROGon 08-10-2021 NURSING PROG Normal [facility] NURSING PROG Normal [facility] NUTRITIONon 08-10-2021 NUTRITION Normal [facility] Phosphate SerPl-mCncon 08-10 Phosphate [Mass/Vol] 3.7 mg/dL Normal 2.7-4.8 [facility] Comment on above: Order Comment: Speci men Type: BLOOD SPECIMENOrdering Facility: [facility] Address: [address] [place] [address] Performed By: #### 1 9123-9, 2777-1, 78515-9 ####[facility]ORYCLIA [id number] [address] ALLIED HEALTHon 08-09-2021 ALLIED HEALTH Normal [...] Comment: Speci men Type: BLOOD SPECIMENOrdering Facility: [facility] Address: [address] [place] [address] Performed By: #### 2 4321-2, 77311-0, 2777-1 ####[facility]ORYCLIA [id number] [address] [place] [facility] Calcium [Mass/Vol] 9.2 mg/dL Normal 8.5-10.2 [facility] Comment on above: Order Comment: Speci men Type: BLOOD SPECIMENOrdering Facility: [facility] Address: [address] [place] [address] Performed By: #### 2 4321-2, , 2776-05 ####[facility]ATORYCLIA [id number] [place] [address] [place] Chloride [Moles/Vol] 97 mmol/L Normal 97-105 [facility] Comment on above: Order Comment: Speci men Type: BLOOD SPECIMENOrdering Facility: [facility] Address: [address] [place] [address] Performed By: #### 2 4321-2, , 2776-05 ####[facility]ORYCLIA [id number] [address] [place] [facility] CO2 [Moles/Vol] 30 mmol/L Normal 22-30 [facility] Comment on above: Order Comment: Speci men Type: BLOOD SPECIMENOrdering Facility: [facility] Address: [address] [place] [address] Performed By: #### 2 4321-2, , 2776-05 ####[facility]ORYCLIA [id number] [address] [place] Creatinine [Mass/Vol] 0.51 mg/dL Low 0.73-1.22 [facility] Comment on above: Order Comment: Speci men Type: BLOOD SPECIMENOrdering Facility: [facility] Address: [address] [place] [address] Performed By: #### 2 4321-2, , 2776-05 ####[facility]ORYCLIA [id number] [address] [place] ESTIMATED GLOMERULAR FILTRATION RATE 110 mL/min/1.73m??? Normal >=60 [facility] Comment on above: Order Comment: Shira feldman Type: BLOOD SPECIMENOrdering Facility: [facility] Address: [address] [place] [address] Result Comment: Luzmaria mated Glomerular Filtration Rate [...] actual GFR. Performed By: #### 2 4321-2, 72725-7, 2776-05 ####[facility]ORYCLIA [id number] [place] [address] [place] Glucose [Mass/Vol] 106 mg/dL High 74-99 [facility] Comment on above: Order Comment: Shira feldman Type: BLOOD SPECIMENOrdering Facility: [facility] Address: [address] [place] [address] Result Comment: [employer] [place] [employer] [...] Performed By: #### 2 4321-2, , 2776-05 ####[facility]ATORYCLIA [id number] [place] [address] [place] Potassium [Moles/Vol] 4.1 mmol/L Normal 3.7-5.1 [facility] Comment on above: Order Comment: Shira feldman Type: BLOOD SPECIMENOrdering Facility: [facility] Address: [address] [place] [place] [address] Performed By: #### 2 4321-2, , 1 ####[facility]ORYCLIA [id number] [address] [place] [facility] Sodium [Moles/Vol] 135 mmol/L Low 136-144 [facility] Comment on above: Order Comment: Speci men Type: BLOOD SPECIMENOrdering Facility: [facility] Address: [address] [place] [address] Performed By: #### 2 4321-2, , 2776-05 ####[facility]ORYCLIA [id number] [address] [place] Urea nitrogen [Mass/Vol] 26 mg/dL High 9-24 [facility] Comment on above: Order Comment: Speci men Type: BLOOD SPECIMENOrdering Facility: [facility] Address: [address] [place] [address] Performed By: #### 2 4321-2, , 2776-05 ####[facility]ORYCLIA [id number] [address] [place] CBC W Auto Differential pane l (Bld)on 08-09-2021 Basophils (Bld) [#/Vol] 0.06 10*3/uL Normal <0.11 [facility] Comment on above: Order Comment: Speci men Type: BLOOD SPECIMENOrdering Facility: [facility] Address: [address] [place] [address] Performed By: #### 5 7021-8 ####[facility]ATORYCLIA [id number] [address] [place] Basophils/100 WBC (Bld) 0.5 % Normal [facility] Comment on above: Order Comment: Speci men Type: BLOOD SPECIMENOrdering Facility: [facility] Address: [address] [place] [address] Performed By: #### 5 7021-8 ####[facility]ORYCLIA [id number] [address] Differential cell count method Nom (Bld) Auto Normal [facility] Comment on above: Order Comment: Speci men Type: BLOOD SPECIMENOrdering Facility: [facility] Address: [address] [place] [address] Performed By: #### 5 7021-8 ####[facility]ORYCLIA [id number] [address] [place] Eosinophils (Bld) [#/Vol] 0.42 10*3/uL Normal <0.46 [facility] Comment on above: Order Comment: Speci men Type: BLOOD SPECIMENOrdering Facility: [facility] Address: [address] [place] [address] Performed By: #### 5 7021-8 ####[facility]ATORYCLIA [id number] [address] Eosinophils/100 WBC (Bld) 3.8 % Normal [facility] Comment on above: Order Comment: Speci men Type: BLOOD SPECIMENOrdering Facility: [facility] Address: [address] [place] [address] Performed By: #### 5 7021-8 ####[facility]ORYCLIA [id number] [address] [place] Erythrocyte distribution width (RBC) [Ratio] 17.6 % High 11.5-15.0 [facility] Comment on above: Order Comment: Speci men Type: BLOOD SPECIMENOrdering Facility: [facility] Address: [address] [place] [address] Performed By: #### 5 7021-8 ####[facility]ORYCLIA [id number] [address] Hematocrit (Bld) [Volume fraction] 29.3 % Low 39.0-51.0 [facility] Comment on above: Order Comment: Speci men Type: BLOOD SPECIMENOrdering Facility: [facility] Address: [address] [place] [address] Performed By: #### 5 7021-8 ####[facility]ORYCLIA [id number] [address] [place] [facility] Hemoglobin (Bld) [Mass/Vol] 9.0 g/dL Low 13.0-17.0 [facility] Comment on above: Order Comment: Speci men Type: BLOOD SPECIMENOrdering Facility: [facility] Address: [address] [place] [address] Performed By: #### 5 7021-8 ####[facility]ORYCLIA [id number] [address] IMMATURE GRAN % 0.5 % Normal [facility] Comment on above: Order Comment: Speci men Type: BLOOD SPECIMENOrdering Facility: [facility] Address: [address] [place] [address] Performed By: #### 5 7021-8 ####[facility]ORYCLIA [id number] [address] IMMATURE GRAN ABS 0.05 k/uL Normal <0.10 [facility] Comment on above: Order Comment: Speci men Type: BLOOD SPECIMENOrdering Facility: [facility] Address: [address] [place] [address] Performed By: #### 5 7021-8 ####[facility]ORYCLIA [id number] [address] [place] Lymphocytes (Bld) [#/Vol] 2.00 10*3/uL Normal 1.00-4.00 [facility] Comment on above: Order Comment: Speci men Type: BLOOD SPECIMENOrdering Facility: [facility] Address: [address] [place] [address] Performed By: #### 5 7021-8 ####[facility]ORYCLIA [id number] [address] Lymphocytes/100 WBC (Bld) 18.1 % Normal [facility] Comment on above: Order Comment: Speci men Type: BLOOD SPECIMENOrdering Facility: [facility] Address: [address] [place] [address] Performed By: #### 5 7021-8 ####[facility]ORYCLIA [id number] [address] MCH (RBC) [Entitic mass] 28.1 pg Normal 26.0-34.0 [facility] Comment on above: Order Comment: Speci men Type: BLOOD SPECIMENOrdering Facility: [facility] Address: [address] [place] [address] Performed By: #### 5 7021-8 ####[facility]ORYCLIA [id number] [address] MCHC (RBC) [Mass/Vol] 30.7 g/dL Normal 30.5-36.0 [facility] Comment on above: Order Comment: Speci men Type: BLOOD SPECIMENOrdering Facility: [facility] Address: [address] [place] [address] Performed By: #### 5 7021-8 ####[facility]ORYCLIA [id number] [address] [place] [facility] MCV (RBC) [Entitic vol] 91.6 fL Normal 80.0-100.0 [facility] Comment on above: Order Comment: Speci men Type: BLOOD SPECIMENOrdering Facility: [facility] Address: [address] [place] [address] Performed By: #### 5 7021-8 ####[facility]ORYCLIA [id number] [address] Monocytes (Bld) [#/Vol] 0.68 10*3/uL Normal <0.87 [facility] Comment on above: Order Comment: Speci men Type: BLOOD SPECIMENOrdering Facility: [facility] Address: [address] [place] [address] Performed By: #### 5 7021-8 ####[facility]ORYCLIA [id number] [address] Monocytes/100 WBC (Bld) 6.2 % Normal [facility] Comment on above: Order Comment: Speci men Type: BLOOD SPECIMENOrdering Facility: [facility] Address: [address] [place] [address] Performed By: #### 5 7021-8 ####[facility]ORATORYCLIA [id number] [address] [place] Neutrophils (Bld) [#/Vol] 7.82 10*3/uL High 1.45-7.50 [facility] Comment on above: Order Comment: Speci men Type: BLOOD SPECIMENOrdering Facility: [facility] Address: [address] [place] [address] Performed By: #### 5 7021-8 ####[facility]ORYCLIA [id number] [address] [place] Neutrophils/100 WBC (Bld) 70.9 % Normal [facility] Comment on above: Order Comment: Speci men Type: BLOOD SPECIMENOrdering Facility: [facility] Address: [address] [place], [place] [address] Performed By: #### 5 7021-8 ####[facility]ORYCLIA [id number] [address] [place] Nucleated RBC (Bld) [#/Vol] 10*3/uL Normal <0.01 [facility] Comment on above: Order Comment: Speci men Type: BLOOD SPECIMENOrdering Facility: [facility] Address: [address] [place], [place] [address] Performed By: #### 5 7021-8 ####[facility]ATORYCLIA [id number] [address] [place] Nucleated RBC/100 WBC (Bld) [Ratio] 0.0 /100 WBC Normal [facility] Comment on above: Order Comment: Speci men Type: BLOOD SPECIMENOrdering Facility: [facility] Address: [address] [place] [address] Performed By: #### 5 7021-8 ####[facility]ATORYCLIA [id number] [address] [place] Platelet mean volume (Bld) [Entitic vol] 10.1 fL Normal 9.0-12.7 [facility] Comment on above: Order Comment: Speci men Type: BLOOD SPECIMENOrdering Facility: [facility] Address: [address] [place] [address] Performed By: #### 5 7021-8 ####[facility]ORYCLIA [id number] [address] [place] Platelets (Bld) [#/Vol] 160 10*3/uL Normal 150-400 [facility] Comment on above: Order Comment: Speci men Type: BLOOD SPECIMENOrdering Facility: [facility] Address: [address] [place] [address] Performed By: #### 5 7021-8 ####[facility]ATORYCLIA [id number] [place] [address] [place] RBC (Bld) [#/Vol] 3.20 10*6/uL Low 4.20-6.00 [facility] Comment on above: Order Comment: Speci men Type: BLOOD SPECIMENOrdering Facility: [facility] Address: [address] [place] [address] Performed By: #### 5 7021-8 ####[facility]ORYCLIA [id number] [place] [address] [place] WBC (Bld) [#/Vol] 11.03 10*3/uL High 3.70-11.00 [facility] Comment on above: Order Comment: Speci men Type: BLOOD SPECIMENOrdering Facility: [facility] Address: [address] [place] [address] Performed By: #### 5 7021-8 ####[facility]ORYCLIA [id number] [address] [place] CONSULT PROGon 08-09-2021 CONSULT PROG Normal [facility] CT BRAIN WO IVCONon 08-10-[address] BRAIN WO IVCON Normal [facility] CT BRAIN WO IVCON Normal [facility] Magnesium SerPl-mCncon 08-09 Magnesium [Mass/Vol] 2.0 mg/dL Normal 1.7-2.3 [facility] Comment on above: Order Comment: Speci men Type: BLOOD SPECIMENOrdering Facility: [facility] Address: [address] [place] [address] Performed By: #### 2 4321-2, 77341-3, 2777-1 ####[facility]ORYCLIA [id number] [address] OF [facility] NURSING PROGon 08-09-2021 NURSING PROG Normal [facility] OPERATIVE NOon 08-09-2021 OPERATIVE NO Normal [facility] PT panel Coag (PPP)on 2021 INR Coag (PPP) [Relative time] 1.1 {INR} Normal 0.9-1.3 [facility] Comment on above: Order Comment: Speci men Type: BLOOD SPECIMENOrdering Facility: [facility] Address: [address] [place] [address] Result Comment: Yris min K Antagonist (VKA) [...] al. Chest 2012, 141:7S-47SAlba MURRY, et al. [facility] 2017, 70: 252-289 Performed By: #### 3 4528-0, 35525-4 ####[facility]ORYCLIA [id number] [address] [place] PT Coag (PPP) [Time] 11.7 s Normal 9.7-13.0 [facility] Comment on above: Order Comment: Speci men Type: BLOOD SPECIMENOrdering Facility: [facility] Address: [address] [place] [address] Performed By: #### 3 4528-0, 72638-4 ####[facility]ORYCLIA [id number] [address] [place] Phosphate SerPl-mCncon 08-09 Phosphate [Mass/Vol] 4.0 mg/dL Normal 2.7-4.8 [facility] Comment on above: Order Comment: Speci men Type: BLOOD SPECIMENOrdering Facility: [facility] Address: [address] [place] [address] Performed By: #### 2 4321-2, 86164-2, 2777-1 ####[facility]ORATORYCLIA [id number] [address] OF [facility] THERAPY NTon 08-09-2021 THERAPY NT Normal [facility] THERAPY NT Normal [facility] TYPE AND SCREENon 08-09-2021 ABO O Normal [facility] Comment on above: Order Comment: Speci men Type: BLOOD SPECIMENOrdering Facility: [facility] Address: [address] [place] [address] Performed By: #### T SCR ####[facility] BANKCLIA [id number] [address] [place] HISTORICAL AB SCR STATUS Negative Normal [facility] Comment on above: Order Comment: Speci men Type: BLOOD SPECIMENOrdering Facility: [facility] Address: [address] [place] [address] Performed By: #### T SCR ####[facility]LOOD BANKCLIA [id number] [address] Rh Nom (Bld) Positive Normal [facility] Comment on above: Order Comment: Speci men Type: BLOOD SPECIMENOrdering Facility: [facility] Address: [address] [place] [address] Performed By: #### T SCR ####[facility]LO[facility] BANKCLIA [id number] [address] TYPE AND SCREEN EXPIRATION 08/12/2021 23:59 Normal [facility] Comment on above: Order Comment: Speci men Type: BLOOD SPECIMENOrdering Facility: [facility] Address: [address] [place] [address] Performed By: #### T SCR ####[facility] BLOOD BANKCLIA [id number] [address] XR ABD 2V SUPINE W UPR/DECUB [...] Comment: Speci men Type: BLOOD SPECIMENOrdering Facility: [facility] Address: [address] [place] [address] Performed By: #### 3 4528-0, 03757-5 ####[facility] LABORATORYCLIA [id number] [address] CASE MANAGEMon 08-08-2021 CASE MANAGEM Normal [facility] CBC W Auto Differential pane l (Bld)on 08-08-2021 Basophils (Bld) [#/Vol] 0.05 10*3/uL Normal <0.11 [facility] Comment on above: Order Comment: Speci men Type: BLOOD SPECIMENOrdering Facility: [facility] Address: [address] [address] Performed By: #### 5 7021-8 ####[facility]ORATORYCLIA [id number] [address] Basophils/100 WBC (Bld) 0.5 % Normal [facility] Comment on above: Order Comment: Speci men Type: BLOOD SPECIMENOrdering Facility: [facility] Address: [address] [place] [address] Performed By: #### 5 7021-8 ####[facility] LABORATORYCLIA [id number] [address] Differential cell count method Nom (Bld) Auto Normal [facility] Comment on above: Order Comment: Speci men Type: BLOOD SPECIMENOrdering Facility: [facility] Address: [address] [place] [address] Performed By: #### 5 7021-8 ####[facility] LABORATORYCLIA [id number] [address] [place] Eosinophils (Bld) [#/Vol] 0.17 10*3/uL Normal <0.46 [facility] Comment on above: Order Comment: Speci men Type: BLOOD SPECIMENOrdering Facility: [facility] Address: [address] [place] [address] Performed By: #### 5 7021-8 ####[facility]ORATORYCLIA [id number] [address] Eosinophils/100 WBC (Bld) 1.6 % Normal [facility] Comment on above: Order Comment: Speci men Type: BLOOD SPECIMENOrdering Facility: [facility] Address: [address] [place] [address] Performed By: #### 5 7021-8 ####[facility]ORATORYCLIA [id number] [address] [place] Erythrocyte distribution width (RBC) [Ratio] 17.8 % High 11.5-15.0 [facility] Comment on above: Order Comment: Speci men Type: BLOOD SPECIMENOrdering Facility: [facility] Address: [address] [place] [address] Performed By: #### 5 7021-8 ####[facility] LABORATORYCLIA [id number] [address] Hematocrit (Bld) [Volume fraction] 29.6 % Low 39.0-51.0 [facility] Comment on above: Order Comment: Speci men Type: BLOOD SPECIMENOrdering Facility: [facility] Address: [address] [place] [address] Performed By: #### 5 7021-8 ####[facility] LABORATORYCLIA [id number] [address] Hemoglobin (Bld) [Mass/Vol] 9.0 g/dL Low 13.0-17.0 [facility] Comment on above: Order Comment: Speci men Type: BLOOD SPECIMENOrdering Facility: [facility] Address: [address] [place] [address] Performed By: #### 5 7021-8 ####[facility] LABORATORYCLIA [id number] [address] IMMATURE GRAN % 0.5 % Normal [facility] Comment on above: Order Comment: Speci men Type: BLOOD SPECIMENOrdering Facility: [facility] Address: [address] [place] [address] Performed By: #### 5 7021-8 ####[facility] LABORATORYCLIA [id number] [address] IMMATURE GRAN ABS 0.05 k/uL Normal <0.10 [facility] Comment on above: Order Comment: Speci men Type: BLOOD SPECIMENOrdering Facility: [facility] Address: [address] [place] [address] Performed By: #### 5 7021-8 ####[facility] LABORATORYCLIA [id number] [place] [address] [place] Lymphocytes (Bld) [#/Vol] 1.93 10*3/uL Normal 1.00-4.00 [facility] Comment on above: Order Comment: Speci men Type: BLOOD SPECIMENOrdering Facility: [facility] Address: [address] [place] [address] Performed By: #### 5 7021-8 ####[facility] LABORATORYCLIA [id number] [address] [place] Lymphocytes/100 WBC (Bld) 18.2 % Normal [facility] Comment on above: Order Comment: Speci men Type: BLOOD SPECIMENOrdering Facility: [facility] Address: [address] [place] [address] Performed By: #### 5 7021-8 ####[facility] LABORATORYCLIA [id number] [address] [place] MCH (RBC) [Entitic mass] 28.1 pg Normal 26.0-34.0 [facility] Comment on above: Order Comment: Speci men Type: BLOOD SPECIMENOrdering Facility: [facility] Address: [address] [place] [address] Performed By: #### 5 7021-8 ####[facility] LABORATORYCLIA [id number] [address] [place] MCHC (RBC) [Mass/Vol] 30.4 g/dL Low 30.5-36.0 [facility] Comment on above: Order Comment: Speci men Type: BLOOD SPECIMENOrdering Facility: [facility] Address: [address] [place] [address] Performed By: #### 5 7021-8 ####[facility] LABORATORYCLIA [id number] [address] MCV (RBC) [Entitic vol] 92.5 fL Normal 80.0-100.0 [facility] Comment on above: Order Comment: Speci men Type: BLOOD SPECIMENOrdering Facility: [facility] Address: [address] [place] [address] Performed By: #### 5 7021-8 ####[facility]ORATORYCLIA [id number] [place] [address] [place] Monocytes (Bld) [#/Vol] 0.75 10*3/uL Normal <0.87 [facility] Comment on above: Order Comment: Speci men Type: BLOOD SPECIMENOrdering Facility: [facility] Address: [address] [place] [address] Performed By: #### 5 7021-8 ####[facility]ORATORYCLIA [id number] [address] [place] Monocytes/100 WBC (Bld) 7.1 % Normal [facility] Comment on above: Order Comment: Speci men Type: BLOOD SPECIMENOrdering Facility: [facility] Address: [address] [place] [address] Performed By: #### 5 7021-8 ####[facility] LABORATORYCLIA [id number] [address] [place] Neutrophils (Bld) [#/Vol] 7.65 10*3/uL High 1.45-7.50 [facility] Comment on above: Order Comment: Speci men Type: BLOOD SPECIMENOrdering Facility: [facility] Address: [address] [place] [address] Performed By: #### 5 7021-8 ####[facility]ORATORYCLIA [id number] [address] [place] Neutrophils/100 WBC (Bld) 72.1 % Normal [facility] Comment on above: Order Comment: Speci men Type: BLOOD SPECIMENOrdering Facility: [facility] Address: [address] [place] [address] Performed By: #### 5 7021-8 ####[facility] LABORATORYCLIA [id number] [place] [address] [place] Nucleated RBC (Bld) [#/Vol] 10*3/uL Normal <0.01 [facility] Comment on above: Order Comment: Speci men Type: BLOOD SPECIMENOrdering Facility: [facility] Address: [address] [place] [address] Performed By: #### 5 7021-8 ####[facility] LABORATORYCLIA [id number] [address] Nucleated RBC/100 WBC (Bld) [Ratio] 0.0 /100 WBC Normal [facility] Comment on above: Order Comment: Speci men Type: BLOOD SPECIMENOrdering Facility: [facility] Address: [address] [place] [address] Performed By: #### 5 7021-8 ####[facility] LABORATORYCLIA [id number] [address] [place] Platelet mean volume (Bld) [Entitic vol] 9.8 fL Normal 9.0-12.7 [facility] Comment on above: Order Comment: Speci men Type: BLOOD SPECIMENOrdering Facility: [facility] Address: [address] [place] [address] Performed By: #### 5 7021-8 ####[facility] LABORATORYCLIA [id number] [address] [place] Platelets (Bld) [#/Vol] 175 10*3/uL Normal 150-400 [facility] Comment on above: Order Comment: Speci men Type: BLOOD SPECIMENOrdering Facility: [facility] Address: [address] [place] [address] Performed By: #### 5 7021-8 ####[facility] LABORATORYCLIA [id number] [address] [place] RBC (Bld) [#/Vol] 3.20 10*6/uL Low 4.20-6.00 [facility] Comment on above: Order Comment: Speci men Type: BLOOD SPECIMENOrdering Facility: [facility] Address: [address] [place] [address] Performed By: #### 5 7021-8 ####[facility] LABORATORYCLIA [id number] [place] WBC (Bld) [#/Vol] 10.60 10*3/uL Normal 3.70-11.00 [facility] Comment on above: Order Comment: Speci men Type: BLOOD SPECIMENOrdering Facility: [facility] Address: [address] [place] [address] Performed By: #### 5 7021-8 ####[facility] LABORATORYCLIA [id number] [address] [place] CT BRAIN WO IVCONon 08-09-19 CT BRAIN WO IVCON Normal [facility] NURSING PROGon 08-08-2021 NURSING PROG Normal [facility] Prealbumin [Mass/Vol]on Prealbumin Nephelometry [Mass/Vol] 29 mg/dL Normal 17-36 [facility] Comment on above: Order Comment: Speci men Type: BLOOD SPECIMENOrdering Facility: [facility] Address: [address] [place] [address] Performed By: #### 1 4338-8 ####[facility] LABORATORYCLIA [id number] [address] [facility] SARS-CoV-2 RNA Resp Ql MEGAN+p robeon 08-08-2021 SARS-CoV-2 (COVID-19) RNA MEGAN+probe Ql (Resp) COVID 19 RESULT: SARS-CoV-2 (Agent of COVID-19) Not Detected by RT-PCR or equivalent method. This test has been authorized by FDA under an Emergency Use Authorization (EUA). Normal [facility] Comment on above: Performed By: #### 9 4500-6 ####[facility] LABORATORYCLIA [id number] [address] [place] ALLIED HEALTHon 08-07-2021 ALLIED HEALTH Normal [facility] Basic metabolic 2000 panelon 08-07-2021 Anion gap [Moles/Vol] 9 mmol/L Normal 9-18 [facility] Comment on above: Order Comment: Speci men Type: BLOOD SPECIMENOrdering Facility: [facility] Address: [address] Performed By: #### 2 4321-2, 2776-, , HFP ####[facility] LABORATORYCLIA [id number] [place] [address] [place] Calcium [Mass/Vol] 9.4 mg/dL Normal 8.5-10.2 [facility] Comment on above: Order Comment: Speci men Type: BLOOD SPECIMENOrdering Facility: [facility] Address: [address] [place] [address] Performed By: #### 2 4321-2, 2776-05, , HFP ####[facility] LABORATORYCLIA [id number] [place] [address] [place] Chloride [Moles/Vol] 98 mmol/L Normal 97-105 [facility] Comment on above: Order Comment: Speci men Type: BLOOD SPECIMENOrdering Facility: [facility] Address: [address] [place] [address] Performed By: #### 2 4321-2, 2776-05, , HFP ####[facility] LABORATORYCLIA [id number] [place] [address] [place] CO2 [Moles/Vol] 29 mmol/L Normal 22-30 [facility] Comment on above: Order Comment: Speci men Type: BLOOD SPECIMENOrdering Facility: [facility] Address: [address] [place], [place] [address] Performed By: #### 2 4321-2, 2776-05, , HFP ####[facility] LABORATORYCLIA [id number] [place] [address] [place] Creatinine [Mass/Vol] 0.67 mg/dL Low 0.73-1.22 [facility] Comment on above: Order Comment: Speci men Type: BLOOD SPECIMENOrdering Facility: [facility] Address: [address] [place], [place] [address] Performed By: #### 2 4321-2, 2776-, , HFP ####[facility] SERVICESIA [id number] [place] [address] [facility] ESTIMATED GLOMERULAR FILTRATION RATE 101 mL/min/1.73m??? Normal >=60 [facility] Comment on above: Order Comment: Shira feldman Type: BLOOD SPECIMENOrdering Facility: [facility] Address: [address] [place] [address] Result Comment: Luzmaria mated Glomerular Filtration Rate [...] Performed By: #### 2 4321-2, 2777-, , [facility] ####[facility] [id number] [place] [id number] [facility] Glucose [Mass/Vol] 117 mg/dL High 74-99 [facility] Comment on above: Order Comment: Johncara feldman Type: BLOOD SPECIMENOrdering Facility: [facility] Address: [address] [place] [address] Result Comment: [employer] [place] [employer] [...] Performed By: #### 2 4321-2, 2777-, , [facility] ####[facility] SERVICESIA [id number] [place] [address] [place] Potassium [Moles/Vol] 4.1 mmol/L Normal 3.7-5.1 [facility] Comment on above: Order Comment: Speci men Type: BLOOD SPECIMENOrdering Facility: [facility] Address: [address] [place] [address] Performed By: #### 2 4321-2, 2777-1, , HFP ####[facility] LABORATORYCLIA [id number] [address] [place] [facility] Sodium [Moles/Vol] 136 mmol/L Normal 136-144 [facility] Comment on above: Order Comment: Speci men Type: BLOOD SPECIMENOrdering Facility: [facility] Address: [address] [place] [address] Performed By: #### 2 4321-2, 2776-, , HFP ####[facility] LABORATORYCLIA [id number] [address] [place] [facility] Urea nitrogen [Mass/Vol] 31 mg/dL High 9-24 [facility] Comment on above: Order Comment: Speci men Type: BLOOD SPECIMENOrdering Facility: [facility] Address: [address] [place] [address] Performed By: #### 2 4321-2, 2776-, , HFP ####[facility] LABORATORYCLIA [id number] [address] STATES [place] [facility] CBC W Auto Differential pane l (Bld)on 08-07-2021 Basophils (Bld) [#/Vol] 0.03 10*3/uL Normal <0.11 [facility] Comment on above: Order Comment: Speci men Type: BLOOD SPECIMENOrdering Facility: [facility] Address: [address] [place] [address] Performed By: #### 5 7021-8 ####[facility] LABORATORYCLIA [id number] [address] Basophils/100 WBC (Bld) 0.3 % Normal [facility] Comment on above: Order Comment: Speci men Type: BLOOD SPECIMENOrdering Facility: [facility] Address: [address] [place] [address] Performed By: #### 5 7021-8 ####[facility] LABORATORYCLIA [id number] [address] Differential cell count method Nom (Bld) Auto Normal [facility] Comment on above: Order Comment: Speci men Type: BLOOD SPECIMENOrdering Facility: [facility] Address: [address] [place] [address] Performed By: #### 5 7021-8 ####[facility] LABORATORYCLIA [id number] [address] [place] Eosinophils (Bld) [#/Vol] 0.16 10*3/uL Normal <0.46 [facility] Comment on above: Order Comment: Speci men Type: BLOOD SPECIMENOrdering Facility: [facility] Address: [address] [place] [address] Performed By: #### 5 7021-8 ####[facility] LABORATORYCLIA [id number] [address] Eosinophils/100 WBC (Bld) 1.6 % Normal [facility] Comment on above: Order Comment: Speci men Type: BLOOD SPECIMENOrdering Facility: [facility] Address: [address] [place] [address] Performed By: #### 5 7021-8 ####[facility] LABORATORYCLIA [id number] [address] [place] Erythrocyte distribution width (RBC) [Ratio] 18.1 % High 11.5-15.0 [facility] Comment on above: Order Comment: Speci men Type: BLOOD SPECIMENOrdering Facility: [facility] Address: [address] [place] [address] Performed By: #### 5 7021-8 ####[facility] LABORATORYCLIA [id number] [address] [place] Hematocrit (Bld) [Volume fraction] 30.6 % Low 39.0-51.0 [facility] Comment on above: Order Comment: Speci men Type: BLOOD SPECIMENOrdering Facility: [facility] Address: [address] [place] [address] Performed By: #### 5 7021-8 ####[facility] LABORATORYCLIA [id number] [address] [place] Hemoglobin (Bld) [Mass/Vol] 9.4 g/dL Low 13.0-17.0 [facility] Comment on above: Order Comment: Speci men Type: BLOOD SPECIMENOrdering Facility: [facility] Address: [address] [place] [address] Performed By: #### 5 7021-8 ####[facility] LABORATORYCLIA [id number] [address] [place] IMMATURE GRAN % 0.4 % Normal [facility] Comment on above: Order Comment: Speci men Type: BLOOD SPECIMENOrdering Facility: [facility] Address: [address] [place] [address] Performed By: #### 5 7021-8 ####[facility] LABORATORYCLIA [id number] [address] IMMATURE GRAN ABS 0.04 k/uL Normal <0.10 [facility] Comment on above: Order Comment: Speci men Type: BLOOD SPECIMENOrdering Facility: [facility] Address: [address] [place] [address] Performed By: #### 5 7021-8 ####[facility]ATORYCLIA [id number] [address] [place] Lymphocytes (Bld) [#/Vol] 2.05 10*3/uL Normal 1.00-4.00 [facility] Comment on above: Order Comment: Speci men Type: BLOOD SPECIMENOrdering Facility: [facility] Address: [address] [place] [address] Performed By: #### 5 7021-8 ####[facility]ORATORYCLIA [id number] [address] Lymphocytes/100 WBC (Bld) 20.2 % Normal [facility] Comment on above: Order Comment: Speci men Type: BLOOD SPECIMENOrdering Facility: [facility] Address: [address] [place] [address] Performed By: #### 5 7021-8 ####[facility] LABORATORYCLIA [id number] [address] MCH (RBC) [Entitic mass] 28.8 pg Normal 26.0-34.0 [facility] Comment on above: Order Comment: Speci men Type: BLOOD SPECIMENOrdering Facility: [facility] Address: [address] [place] [address] Performed By: #### 5 7021-8 ####[facility] LABORATORYCLIA [id number] [address] MCHC (RBC) [Mass/Vol] 30.7 g/dL Normal 30.5-36.0 [facility] Comment on above: Order Comment: Speci men Type: BLOOD SPECIMENOrdering Facility: [facility] Address: [address] [place] [address] Performed By: #### 5 7021-8 ####[facility] LABORATORYCLIA [id number] [address] MCV (RBC) [Entitic vol] 93.9 fL Normal 80.0-100.0 [facility] Comment on above: Order Comment: Speci men Type: BLOOD SPECIMENOrdering Facility: [facility] Address: [address] [place] [address] Performed By: #### 5 7021-8 ####[facility] LABORATORYCLIA [id number] [address] Monocytes (Bld) [#/Vol] 0.64 10*3/uL Normal <0.87 [facility] Comment on above: Order Comment: Speci men Type: BLOOD SPECIMENOrdering Facility: [facility] Address: [address] [place] [address] Performed By: #### 5 7021-8 ####[facility]ORATORYCLIA [id number] [address] [place] Monocytes/100 WBC (Bld) 6.3 % Normal [facility] Comment on above: Order Comment: Speci men Type: BLOOD SPECIMENOrdering Facility: [facility] Address: [address] [place] [address] Performed By: #### 5 7021-8 ####[facility] LABORATORYCLIA [id number] [place] [address] [place] Neutrophils (Bld) [#/Vol] 7.22 10*3/uL Normal 1.45-7.50 [facility] Comment on above: Order Comment: Speci men Type: BLOOD SPECIMENOrdering Facility: [facility] Address: [address] [place] [address] Performed By: #### 5 7021-8 ####[facility] LABORATORYCLIA [id number] [address] [place] Neutrophils/100 WBC (Bld) 71.2 % Normal [facility] Comment on above: Order Comment: Speci men Type: BLOOD SPECIMENOrdering Facility: [facility] Address: [address] [place] [address] Performed By: #### 5 7021-8 ####[facility]ORATORYCLIA [id number] [place] [address] [place] Nucleated RBC (Bld) [#/Vol] 10*3/uL Normal <0.01 [facility] Comment on above: Order Comment: Speci men Type: BLOOD SPECIMENOrdering Facility: [facility] Address: [address] [place] [address] Performed By: #### 5 7021-8 ####[facility] [facility]ORATORYCLIA [id number] [place] [address] [place] Nucleated RBC/100 WBC (Bld) [Ratio] 0.0 /100 WBC Normal [facility] Comment on above: Order Comment: Speci men Type: BLOOD SPECIMENOrdering Facility: [facility] Address: [address] [place] [address] Performed By: #### 5 7021-8 ####[facility] LABORATORYCLIA [id number] [address] [place] Platelet mean volume (Bld) [Entitic vol] 9.9 fL Normal 9.0-12.7 [facility] Comment on above: Order Comment: Speci men Type: BLOOD SPECIMENOrdering Facility: [facility] Address: [address] [place], [place] [address] Performed By: #### 5 7021-8 ####[facility] LABORATORYCLIA [id number] [address] [place] Platelets (Bld) [#/Vol] 227 10*3/uL Normal 150-400 [facility] Comment on above: Order Comment: Speci men Type: BLOOD SPECIMENOrdering Facility: [facility] Address: [address] [place] [address] Performed By: #### 5 7021-8 ####[facility] LABORATORYCLIA [id number] [place] [address] [place] RBC (Bld) [#/Vol] 3.26 10*6/uL Low 4.20-6.00 [facility] Comment on above: Order Comment: Speci men Type: BLOOD SPECIMENOrdering Facility: [facility] Address: [address] [place], [place] [address] Performed By: #### 5 7021-8 ####[facility] LABORATORYCLIA [id number] [address] [place] WBC (Bld) [#/Vol] 10.14 10*3/uL Normal 3.70-11.00 [facility] Comment on above: Order Comment: Speci men Type: BLOOD SPECIMENOrdering Facility: [facility] Address: [address] [place], [place] [address] Performed By: #### 5 7021-8 ####[facility]ORATORYCLIA [id number] [address] BRAIN WO IVCONon 08-08-19 CT BRAIN WO IVCON Normal [facility] HEPATIC FUNCTION PNLon 08-07 Albumin [Mass/Vol] 3.6 g/dL Low 3.9-4.9 [facility] Comment on above: Order Comment: Speci men Type: BLOOD SPECIMENOrdering Facility: [facility] Address: [address] [place] [address] Performed By: #### 2 4321-2, 2777-1, , HFP ####[facility]ORYCL[facility] [id number] [address] ALP [Catalytic activity/Vol] 124 U/L High 38-113 [facility] Comment on above: Order Comment: Speci men Type: BLOOD SPECIMENOrdering Facility: [facility] Address: [address] [place] [address] Performed By: #### 2 4321-2, 2777-1, , HFP ####[facility]ATORYCLIA [id number] [address] ALT With P-5'-P [Catalytic activity/Vol] 29 U/L Normal 10-54 [facility] [facility] Comment on above: Order Comment: Speci men Type: BLOOD SPECIMENOrdering Facility: [facility] Address: [address] [place] [address] Performed By: #### 2 4321-2, 2777-1, , HFP ####[facility]ORYCLIA [id number] [address] AST With P-5'-P [Catalytic activity/Vol] 18 U/L Normal 14-40 [facility] Comment on above: Order Comment: Speci men Type: BLOOD SPECIMENOrdering Facility: [facility] Address: [address] [place] [address] Performed By: #### 2 4321-2, 277-, , HFP ####[facility]ATORYCLIA [id number] [place] [id number] [place] Bilirubin [Mass/Vol] 0.3 mg/dL Normal 0.2-1.3 [facility] Comment on above: Order Comment: Speci men Type: BLOOD SPECIMENOrdering Facility: [facility] Address: [address] [place], [place] [address] Performed By: #### 2 4321-2, 2776-05, , HFP ####[facility]ATORYCLIA [id number] [place] [address] [place] Bilirubin.conjugated [Mass/Vol] mg/dL Normal <0.2 [facility] Comment on above: Order Comment: Speci men Type: BLOOD SPECIMENOrdering Facility: [facility] Address: [address] [place] [address] Performed By: #### 2 4321-2, 2776-05, , HFP ####[facility]ATORYCLIA [id number] [place] [address] [place] Protein [Mass/Vol] 6.4 g/dL Normal 6.3-8.0 [facility] Comment on above: Order Comment: Speci men Type: BLOOD SPECIMENOrdering Facility: [facility] Address: [address] [place] [address] Performed By: #### 2 4321-2, 2776-05, , HFP ####[facility]ORYCLIA [id number] [place] [address] [place] Magnesium SerPl-mCncon 08-07 Magnesium [Mass/Vol] 2.3 mg/dL Normal 1.7-2.3 [facility] Comment on above: Order Comment: Speci men Type: BLOOD SPECIMENOrdering Facility: [facility] Address: [address] [place] [address] Performed By: #### 2 4321-2, 2776-05, , HFP ####[facility]ORYCLIA [id number] [place] [address] [place] NURSING PROGon 08-07-2021 NURSING PROG Normal [facility] Phosphate SerPl-mCncon 08-07 Phosphate [Mass/Vol] 3.5 mg/dL Normal 2.7-4.8 [facility] Comment on above: Order Comment: Speci men Type: BLOOD SPECIMENOrdering Facility: [facility] Address: [address] [address] Performed By: #### 2 4321-2, 2776-05, , [facility] ####[facility]ORYCLIA [id number] [address] [place] ANES POSTPROC EVALon 022 ANES POSTPROC EVAL Normal [facility] Basic metabolic 2000 panelon 08-06-2021 Anion gap [Moles/Vol] 11 mmol/L Normal 9-18 [facility] Comment on above: Order Comment: Speci men Type: BLOOD SPECIMENOrdering Facility: [facility] Address: [address] [place] [address] Performed By: #### 2 4321-2, 2776-05, ####[facility]ITAL[facility]IA [id number] [place] [address] [place] Calcium [Mass/Vol] 8.2 mg/dL Low 8.5-10.2 [facility] Comment on above: Order Comment: Speci men Type: BLOOD SPECIMENOrdering Facility: [facility] Address: [address] [address] Performed By: #### 2 4321-2, 2776-05, ####[facility]ATORYCLIA [id number] [place] [address] [place] Chloride [Moles/Vol] 100 mmol/L Normal 97-105 [facility] Comment on above: Order Comment: Speci men Type: BLOOD SPECIMENOrdering Facility: [facility] Address: [address] [place], [place] [address] Performed By: #### 2 4321-2, 2776-05, ####[facility]ITALCLIA [id number] [place] [address] [place] [facility] CO2 [Moles/Vol] 23 mmol/L Normal 22-30 [facility] Comment on above: Order Comment: Speci men Type: BLOOD SPECIMENOrdering Facility: [facility] Address: [address] [place] [address] Performed By: #### 2 4321-2, 2776-05, ####[facility]ITALCLIA [id number] [place] [id number] [place] [facility] Creatinine [Mass/Vol] 0.55 mg/dL Low 0.73-1.22 [facility] Comment on above: Order Comment: Speci men Type: BLOOD SPECIMENOrdering Facility: [facility] Address: [address] [place] [address] Performed By: #### 2 4321-2, 2776-05, ####[facility]ITALCLIA [id number] [address] ESTIMATED GLOMERULAR FILTRATION RATE 107 mL/min/1.73m??? Normal >=60 [facility] Comment on above: Order Comment: Speci men Type: BLOOD SPECIMENOrdering Facility: [facility] Address: [address] [place] [address] Result Comment: Luzmaria mated Glomerular Filtration Rate [...] GFR. Performed By: #### 2 4321-2, 27711-04, ####[facility]ATORYCLIA [id number] [place] [id number] [place] Glucose [Mass/Vol] 275 mg/dL High 74-99 [facility] Comment on above: Order Comment: Shira feldman Type: BLOOD SPECIMENOrdering Facility: [facility] Address: [address] [place], [place] [address] Result Comment: The [place] [employer] [...] 1). Performed By: #### 2 4321-2, 2776-05, ####[facility]ATORYCLIA [id number] [place] [address] [place] Potassium [Moles/Vol] 3.6 mmol/L Low 3.7-5.1 [facility] Comment on above: Order Comment: Shira feldman Type: BLOOD SPECIMENOrdering Facility: [facility] Address: [address] [place], [place] [address] Performed By: #### 2 4321-2, 27711-04, ####[facility]ATORYCLIA [id number] [place] [address] [place] Sodium [Moles/Vol] 134 mmol/L Low 136-144 [facility] Comment on above: Order Comment: Shira feldman Type: BLOOD SPECIMENOrdering Facility: [facility] Address: [address] [place], [place] [address] Performed By: #### 2 4321-2, 2776-05, ####[facility]ORYCLIA [id number] [place] [address] [place] Urea nitrogen [Mass/Vol] 29 mg/dL High 9-24 [facility] Comment on above: Order Comment: Speci men Type: BLOOD SPECIMENOrdering Facility: [facility] Address: [address] [place] [address] Performed By: #### 2 4321-2, 2777-1, 22461-0 ####[facility]ATORYCLIA [id number] [place] [address] [place] CBC W Auto Differential pane l (Bld)on 08-06-2021 Basophils (Bld) [#/Vol] 0.03 10*3/uL Normal <0.11 [facility] Comment on above: Order Comment: Speci men Type: BLOOD SPECIMENOrdering Facility: [facility] Address: [address] [place] [address] Performed By: #### 5 7021-8 ####[facility]ATORYCLIA [id number] [place] [address] [place] Basophils/100 WBC (Bld) 0.3 % Normal [facility] Comment on above: Order Comment: Speci men Type: BLOOD SPECIMENOrdering Facility: [facility] Address: [address] [place] [address] Performed By: #### 5 7021-8 ####[facility]ATORYCLIA [id number] [address] [place] [facility] Differential cell count method Nom (Bld) Auto Normal [facility] Comment on above: Order Comment: Speci men Type: BLOOD SPECIMENOrdering Facility: [facility] Address: [address] [place] [address] Performed By: #### 5 7021-8 ####[facility]ORYCLIA [id number] [place] [address] [place] Eosinophils (Bld) [#/Vol] 0.18 10*3/uL Normal <0.46 [facility] Comment on above: Order Comment: Speci men Type: BLOOD SPECIMENOrdering Facility: [facility] Address: [address] [place] [address] Performed By: #### 5 7021-8 ####[facility]ORATORYCLIA [id number] [address] [place] [facility] Eosinophils/100 WBC (Bld) 1.6 % Normal [facility] Comment on above: Order Comment: Speci men Type: BLOOD SPECIMENOrdering Facility: [facility] Address: [address] [place] [address] Performed By: #### 5 7021-8 ####[facility]ORYCLIA [id number] [address] Erythrocyte distribution width (RBC) [Ratio] 17.9 % High 11.5-15.0 [facility] Comment on above: Order Comment: Speci men Type: BLOOD SPECIMENOrdering Facility: [facility] Address: [address] [place] [address] Performed By: #### 5 7021-8 ####[facility]ORYCLIA [id number] [address] Hematocrit (Bld) [Volume fraction] 27.6 % Low 39.0-51.0 [facility] Comment on above: Order Comment: Speci men Type: BLOOD SPECIMENOrdering Facility: [facility] Address: [address] [place] [address] Performed By: #### 5 7021-8 ####[facility]ORYCLIA [id number] [address] [place] Hemoglobin (Bld) [Mass/Vol] 8.5 g/dL Low 13.0-17.0 [facility] Comment on above: Order Comment: Speci men Type: BLOOD SPECIMENOrdering Facility: [facility] Address: [address] [place] [address] Performed By: #### 5 7021-8 ####[facility]ATORYCLIA [id number] [address] [place] IMMATURE GRAN % 0.6 % Normal [facility] Comment on above: Order Comment: Speci men Type: BLOOD SPECIMENOrdering Facility: [facility] Address: [address] [place] [address] Performed By: #### 5 7021-8 ####[facility]ATORYCLIA [id number] [address] IMMATURE GRAN ABS 0.07 k/uL Normal <0.10 [facility] Comment on above: Order Comment: Speci men Type: BLOOD SPECIMENOrdering Facility: [facility] Address: [address] [place] [address] Performed By: #### 5 7021-8 ####[facility]ORYCLIA [id number] [address] Lymphocytes (Bld) [#/Vol] 1.81 10*3/uL Normal 1.00-4.00 [facility] Comment on above: Order Comment: Speci men Type: BLOOD SPECIMENOrdering Facility: [facility] Address: [address] [place] [address] Performed By: #### 5 7021-8 ####[facility]ORYCLIA [id number] [address] Lymphocytes/100 WBC (Bld) 15.7 % Normal [facility] Comment on above: Order Comment: Speci men Type: BLOOD SPECIMENOrdering Facility: [facility] Address: [address] [place] [address] Performed By: #### 5 7021-8 ####[facility]ORYCLIA [id number] [address] [place] [facility] MCH (RBC) [Entitic mass] 28.6 pg Normal 26.0-34.0 [facility] Comment on above: Order Comment: Speci men Type: BLOOD SPECIMENOrdering Facility: [facility] Address: [address] [place] [address] Performed By: #### 5 7021-8 ####[facility]ORYCLIA [id number] [address] MCHC (RBC) [Mass/Vol] 30.8 g/dL Normal 30.5-36.0 [facility] Comment on above: Order Comment: Speci men Type: BLOOD SPECIMENOrdering Facility: [facility] Address: [address] [place] [address] Performed By: #### 5 7021-8 ####[facility]ORYCLIA [id number] [address] [place] MCV (RBC) [Entitic vol] 92.9 fL Normal 80.0-100.0 [facility] Comment on above: Order Comment: Speci men Type: BLOOD SPECIMENOrdering Facility: [facility] Address: [address] [place] [address] Performed By: #### 5 7021-8 ####[facility]ORYCLIA [id number] [address] [place] Monocytes (Bld) [#/Vol] 0.63 10*3/uL Normal <0.87 [facility] Comment on above: Order Comment: Speci men Type: BLOOD SPECIMENOrdering Facility: [facility] Address: [address] [place] [address] Performed By: #### 5 7021-8 ####[facility]ORYCLIA [id number] [address] Monocytes/100 WBC (Bld) 5.5 % Normal [facility] Comment on above: Order Comment: Speci men Type: BLOOD SPECIMENOrdering Facility: [facility] Address: [address] [place] [address] Performed By: #### 5 7021-8 ####[facility]ORYCLIA [id number] [address] [place] Neutrophils (Bld) [#/Vol] 8.78 10*3/uL High 1.45-7.50 [facility] Comment on above: Order Comment: Speci men Type: BLOOD SPECIMENOrdering Facility: [facility] Address: [address] [place] [address] Performed By: #### 5 7021-8 ####[facility]ORYCLIA [id number] [address] [place] Neutrophils/100 WBC (Bld) 76.3 % Normal [facility] Comment on above: Order Comment: Speci men Type: BLOOD SPECIMENOrdering Facility: [facility] Address: [address] [place] [address] Performed By: #### 5 7021-8 ####[facility]ORYCLIA [id number] [address] [place] Nucleated RBC (Bld) [#/Vol] 10*3/uL Normal <0.01 [facility] Comment on above: Order Comment: Speci men Type: BLOOD SPECIMENOrdering Facility: [facility] Address: [address] [place] [address] Performed By: #### 5 7021-8 ####[facility]ORYCLIA [id number] [address] Nucleated RBC/100 WBC (Bld) [Ratio] 0.0 /100 WBC Normal [facility] Comment on above: Order Comment: Speci men Type: BLOOD SPECIMENOrdering Facility: [facility] Address: [address] [place] [address] Performed By: #### 5 7021-8 ####[facility]ORYCLIA [id number] [address] [place] Platelet mean volume (Bld) [Entitic vol] 9.9 fL Normal 9.0-12.7 [facility] Comment on above: Order Comment: Speci men Type: BLOOD SPECIMENOrdering Facility: [facility] Address: [address] [place] [address] Performed By: #### 5 7021-8 ####[facility]ATORYCLIA [id number] [address] [place] Platelets (Bld) [#/Vol] 230 10*3/uL Normal 150-400 [facility] Comment on above: Order Comment: Speci men Type: BLOOD SPECIMENOrdering Facility: [facility] Address: [address] [place] [address] Performed By: #### 5 7021-8 ####[facility]ORYCLIA [id number] [address] RBC (Bld) [#/Vol] 2.97 10*6/uL Low 4.20-6.00 [facility] Comment on above: Order Comment: Speci men Type: BLOOD SPECIMENOrdering Facility: [facility] Address: [address] [place] [address] Performed By: #### 5 7021-8 ####[facility]ORYCLIA [id number] [address] WBC (Bld) [#/Vol] 11.50 10*3/uL High 3.70-11.00 [facility] Comment on above: Order Comment: Speci men Type: BLOOD SPECIMENOrdering Facility: [facility] Address: [address] [place] [address] Performed By: #### 5 7021-8 ####[facility]ORYCLIA [id number] [address] CONSULT PROGon 08-06-2021 CONSULT PROG Normal [facility] Magnesium SerPl-mCncon 08-06 Magnesium [Mass/Vol] 1.9 mg/dL Normal 1.7-2.3 [facility] Comment on above: Order Comment: Speci men Type: BLOOD SPECIMENOrdering Facility: [facility] Address: [address] [place] [address] Performed By: #### 2 4321-2, 2777-1, 96966-1 ####[facility]ORYCLIA [id number] [address] NURSING PROGon 08-06-2021 NURSING PROG Normal [facility] OPERATIVE NOon 08-06-2021 OPERATIVE NO Normal [facility] Phosphate SerPl-mCncon 08-06 Phosphate [Mass/Vol] 4.2 mg/dL Normal 2.7-4.8 [facility] Comment on above: Order Comment: Speci men Type: BLOOD SPECIMENOrdering Facility: [facility] Address: [address] [place], [place] [address] Performed By: #### 2 4321-2, 2777-1, 53348-6 ####[facility]ORYCLIA [id number] [place] [address] [place] ALLIED HEALTHon 08-05-2021 [...] on above: Performed By: #### 3 2355-0 ####[facility]ATORYCLIA [id number] [place] [address] [place] Bacteria Ur Culton Bacteria identified Cx Nom (U) CULTURE, URINE: No growth (<1,000 CFU/ml) Normal [facility] Comment on above: Performed By: #### 6 30-4 ####[facility]ORYCLIA [id number] [place] [address] [place] Basic metabolic 2000 panelon 08-05-2021 Anion gap [Moles/Vol] 7 mmol/L Low 9-18 [facility] Comment on above: Order Comment: Speci men Type: BLOOD SPECIMENOrdering Facility: [facility] Address: [address] [place] [address] Performed By: #### 2 4321-2 ####[facility]ORYCLIA [id number] [place] [address] [place] Calcium [Mass/Vol] 9.5 mg/dL Normal 8.5-10.2 [facility] Comment on above: Order Comment: Speci men Type: BLOOD SPECIMENOrdering Facility: [facility] Address: [address] [address] Performed By: #### 2 4321-2 ####[facility]ORYCLIA [id number] [address] [place] Chloride [Moles/Vol] 97 mmol/L Normal 97-105 [facility] Comment on above: Order Comment: Speci men Type: BLOOD SPECIMENOrdering Facility: [facility] Address: [address] [place] [address] Performed By: #### 2 4321-2 ####[facility]ORYCLIA [id number] [address] [place] CO2 [Moles/Vol] 30 mmol/L Normal 22-30 [facility] Comment on above: Order Comment: Speci men Type: BLOOD SPECIMENOrdering Facility: [facility] Address: [address] [place] [address] Performed By: #### 2 4321-2 ####[facility]ORYCLIA [id number] [address] [place] Creatinine [Mass/Vol] 0.61 mg/dL Low 0.73-1.22 [facility] Comment on above: Order Comment: Speci men Type: BLOOD SPECIMENOrdering Facility: [facility] Address: [address] [place] [address] Performed By: #### 2 4321-2 ####[facility]ORYCLIA [id number] [address] ESTIMATED GLOMERULAR FILTRATION RATE 104 mL/min/1.73m??? Normal >=60 [facility] Comment on above: Order Comment: Speci men Type: BLOOD SPECIMENOrdering Facility: [facility] Address: [address] [place] [address] Result Comment: Luzmaria mated Glomerular Filtration Rate [...] actual GFR. Performed By: #### 2 4321-2 ####[facility]ORYCLIA [id number] [place] [address] [place] Glucose [Mass/Vol] 124 mg/dL High 74-99 [facility] Comment on above: Order Comment: Shira feldman Type: BLOOD SPECIMENOrdering Facility: [facility] Address: [address] [place], [place] [address] Result Comment: The [place] [employer] [...] 2016.39(Suppl 1). Performed By: #### 2 4321-2 ####[facility]ORYCLIA [id number] [place] [address] [place] Potassium [Moles/Vol] 4.9 mmol/L Normal 3.7-5.1 [facility] Comment on above: Order Comment: Shira feldman Type: BLOOD SPECIMENOrdering Facility: [facility] Address: [address] [place] [address] Performed By: #### 2 4321-2 ####[facility]ORYCLIA [id number] [place] [address] [place] Sodium [Moles/Vol] 134 mmol/L Low 136-144 [facility] Comment on above: Order Comment: Shira feldman Type: BLOOD SPECIMENOrdering Facility: [facility] Address: [address] [place] [address] Performed By: #### 2 4321-2 ####[facility]ORYCLIA [id number] [address] [place] [facility] Urea nitrogen [Mass/Vol] 40 mg/dL High 9-24 [facility] Comment on above: Order Comment: Speci men Type: BLOOD SPECIMENOrdering Facility: [facility] Address: [address] [place] [address] Performed By: #### 2 4321-2 ####[facility]ORYCLIA [id number] [place] [address] [place] CBC W Auto Differential pane l (Bld)on 08-05-2021 Basophils (Bld) [#/Vol] 0.04 10*3/uL Normal <0.11 [facility] Comment on above: Order Comment: Speci men Type: BLOOD SPECIMENOrdering Facility: [facility] Address: [address] [place] [address] Performed By: #### 5 7021-8 ####[facility]ORYCLIA [id number] [address] [place] Basophils/100 WBC (Bld) 0.3 % Normal [facility] Comment on above: Order Comment: Speci men Type: BLOOD SPECIMENOrdering Facility: [facility] Address: [address] [place] [address] Performed By: #### 5 7021-8 ####[facility]ORYCLIA [id number] [address] [place] [facility] Differential cell count method Nom (Bld) Auto Normal [facility] Comment on above: Order Comment: Speci men Type: BLOOD SPECIMENOrdering Facility: [facility] Address: [address] [place] [address] Performed By: #### 5 7021-8 ####[facility]ORYCLIA [id number] [place] [address] [place] Eosinophils (Bld) [#/Vol] 0.42 10*3/uL Normal <0.46 [facility] Comment on above: Order Comment: Speci men Type: BLOOD SPECIMENOrdering Facility: [facility] Address: [address] [place] [address] Performed By: #### 5 7021-8 ####[facility]ORYCLIA [id number] [address] Eosinophils/100 WBC (Bld) 3.6 % Normal [facility] Comment on above: Order Comment: Speci men Type: BLOOD SPECIMENOrdering Facility: [facility] Address: [address] [place] [address] Performed By: #### 5 7021-8 ####[facility]ORYCLIA [id number] [address] [place] Erythrocyte distribution width (RBC) [Ratio] 17.9 % High 11.5-15.0 [facility] Comment on above: Order Comment: Speci men Type: BLOOD SPECIMENOrdering Facility: [facility] Address: [address] [place] [address] Performed By: #### 5 7021-8 ####[facility]ORYCLIA [id number] [address] [place] Hematocrit (Bld) [Volume fraction] 30.8 % Low 39.0-51.0 [facility] Comment on above: Order Comment: Speci men Type: BLOOD SPECIMENOrdering Facility: [facility] Address: [address] [place] [address] Performed By: #### 5 7021-8 ####[facility]ORYCLIA [id number] [address] [place] Hemoglobin (Bld) [Mass/Vol] 9.6 g/dL Low 13.0-17.0 [facility] Comment on above: Order Comment: Speci men Type: BLOOD SPECIMENOrdering Facility: [facility] Address: [address] [place] [address] Performed By: #### 5 7021-8 ####[facility]ORYCLIA [id number] [address] IMMATURE GRAN % 0.5 % Normal [facility] Comment on above: Order Comment: Speci men Type: BLOOD SPECIMENOrdering Facility: [facility] Address: [address] [place] [address] Performed By: #### 5 7021-8 ####[facility]ORYCL[facility] [id number] [address] IMMATURE GRAN ABS 0.06 k/uL Normal <0.10 [facility] Comment on above: Order Comment: Speci men Type: BLOOD SPECIMENOrdering Facility: [facility] Address: [address] [place] [address] Performed By: #### 5 7021-8 ####[facility]ATORYCLIA [id number] [address] [place] Lymphocytes (Bld) [#/Vol] 2.17 10*3/uL Normal 1.00-4.00 [facility] Comment on above: Order Comment: Speci men Type: BLOOD SPECIMENOrdering Facility: [facility] Address: [address] [place] [address] Performed By: #### 5 7021-8 ####[facility]ORYCL[facility] [id number] [address] Lymphocytes/100 WBC (Bld) 18.7 % Normal [facility] Comment on above: Order Comment: Speci men Type: BLOOD SPECIMENOrdering Facility: [facility] Address: [address] [place] [address] Performed By: #### 5 7021-8 ####[facility]ORYCLIA [id number] [address] [place] MCH (RBC) [Entitic mass] 28.9 pg Normal 26.0-34.0 [facility] Comment on above: Order Comment: Speci men Type: BLOOD SPECIMENOrdering Facility: [facility] Address: [address] [place] [address] Performed By: #### 5 7021-8 ####[facility]ATORYCLIA [id number] [address] [place] [facility] MCHC (RBC) [Mass/Vol] 31.2 g/dL Normal 30.5-36.0 [facility] Comment on above: Order Comment: Speci men Type: BLOOD SPECIMENOrdering Facility: [facility] Address: [address] [place] [address] Performed By: #### 5 7021-8 ####[facility]ATORYCLIA [id number] [address] MCV (RBC) [Entitic vol] 92.8 fL Normal 80.0-100.0 [facility] Comment on above: Order Comment: Speci men Type: BLOOD SPECIMENOrdering Facility: [facility] Address: [address] [place] [address] Performed By: #### 5 7021-8 ####[facility]ATORYCLIA [id number] [address] STATES [place] [facility] Monocytes (Bld) [#/Vol] 0.71 10*3/uL Normal <0.87 [facility] Comment on above: Order Comment: Speci men Type: BLOOD SPECIMENOrdering Facility: [facility] Address: [address] [place] [address] Performed By: #### 5 7021-8 ####[facility]ORYCLIA [id number] [address] Monocytes/100 WBC (Bld) 6.1 % Normal [facility] Comment on above: Order Comment: Speci men Type: BLOOD SPECIMENOrdering Facility: [facility] Address: [address] [place] [address] Performed By: #### 5 7021-8 ####[facility]ATORYCLIA [id number] [address] [place] Neutrophils (Bld) [#/Vol] 8.19 10*3/uL High 1.45-7.50 [facility] Comment on above: Order Comment: Speci men Type: BLOOD SPECIMENOrdering Facility: [facility] Address: [address] [address] Performed By: #### 5 7021-8 ####[facility]ORYCLIA [id number] [address] Neutrophils/100 WBC (Bld) 70.8 % Normal [facility] Comment on above: Order Comment: Speci men Type: BLOOD SPECIMENOrdering Facility: [facility] Address: [address] [place] [address] Performed By: #### 5 7021-8 ####[facility]ORYCLIA [id number] [address] Nucleated RBC (Bld) [#/Vol] 10*3/uL Normal <0.01 [facility] Comment on above: Order Comment: Speci men Type: BLOOD SPECIMENOrdering Facility: [facility] Address: [address] [place] [address] Performed By: #### 5 7021-8 ####[facility]ATORYCLIA [id number] [address] Nucleated RBC/100 WBC (Bld) [Ratio] 0.0 /100 WBC Normal [facility] Comment on above: Order Comment: Speci men Type: BLOOD SPECIMENOrdering Facility: [facility] Address: [address] [place] [address] Performed By: #### 5 7021-8 ####[facility]ATORYCLIA [id number] [address] Platelet mean volume (Bld) [Entitic vol] 9.6 fL Normal 9.0-12.7 [facility] Comment on above: Order Comment: Speci men Type: BLOOD SPECIMENOrdering Facility: [facility] Address: [address] [place] [address] Performed By: #### 5 7021-8 ####[facility]ORYCLIA [id number] [address] Platelets (Bld) [#/Vol] 339 10*3/uL Normal 150-400 [facility] Comment on above: Order Comment: Speci men Type: BLOOD SPECIMENOrdering Facility: [facility] Address: [address] [place] [address] Performed By: #### 5 7021-8 ####[facility]ATORYCLIA [id number] [place] [address] [place] RBC (Bld) [#/Vol] 3.32 10*6/uL Low 4.20-6.00 [facility] Comment on above: Order Comment: Speci men Type: BLOOD SPECIMENOrdering Facility: [facility] Address: [address] [place] [address] Performed By: #### 5 7021-8 ####[facility]ATORYCLIA [id number] [address] WBC (Bld) [#/Vol] 11.59 10*3/uL High 3.70-11.00 [facility] Comment on above: Order Comment: Speci men Type: BLOOD SPECIMENOrdering Facility: [facility] Address: [address] [place] [address] Performed By: #### 5 7021-8 ####[facility]ATORYCLIA [id number] [address] [place] CT BRAIN WO IVCONon 08-06-[address] BRAIN WO IVCON Normal [facility] Magnesium SerPl-mCncon 08-05 Magnesium [Mass/Vol] 2.2 mg/dL Normal 1.7-2.3 [facility] Comment on above: Order Comment: Speci men Type: BLOOD SPECIMENOrdering Facility: [facility] Address: [address] [place] [address] Performed By: #### 1 9123-9, 2777-1 ####[facility]ATORYCLIA [id number] [address] [place] NURSING PROGon 08-05-2021 NURSING PROG Normal [facility] NURSING PROG Normal [facility] NUTRITIONon 08-05-2021 NUTRITION Normal [facility] OPERATIVE NOon 08-05-2021 OPERATIVE NO Normal [facility] Phosphate SerPl-mCncon 08-05 Phosphate [Mass/Vol] 4.6 mg/dL Normal 2.7-4.8 [facility] Comment on above: Order Comment: Speci men Type: BLOOD SPECIMENOrdering Facility: [facility] Address: [address] [place] [address] Performed By: #### 1 9123-9, 2777-1 ####[facility]ATORYCLIA [id number] [address] THERAPY NTon 08-05-2021 THERAPY NT Normal [facility] THERAPY NT Normal [facility] Urinalysis complete panel (U )on 08-05-2021 Bilirubin Ql (U) Negative Normal Negative [facility] Comment on above: Order Comment: Speci men Type: URINE SPECIMENOrdering Facility: [facility] Address: [address] [place] [address] Performed By: #### 2 4356-8 ####[facility]ATORYCLIA [id number] [address] [place] Clarity (Unsp spec) Clear Normal Clear [facility] Comment on above: Order Comment: Speci men Type: URINE SPECIMENOrdering Facility: [facility] Address: [address] [place] [address] Performed By: #### 2 4356-8 ####[facility]ATORYCLIA [id number] [address] [place] Color (U) Light Yellow Normal yellow [facility] Comment on above: Order Comment: Speci men Type: URINE SPECIMENOrdering Facility: [facility] Address: [address] [place] [address] Performed By: #### 2 4356-8 ####[facility]ATORYCLIA [id number] [address] [place] Epithelial cells LM.HPF (Urine sed) [#/Area] Few Abnormal None Seen [facility] Comment on above: Order Comment: Speci men Type: URINE SPECIMENOrdering Facility: [facility] Address: [address] [place] [address] Performed By: #### 2 4356-8 ####[facility]ORATORYCLIA [id number] [address] Glucose Test strip (U) [Mass/Vol] Negative Normal Negative [facility] Comment on above: Order Comment: Speci men Type: URINE SPECIMENOrdering Facility: [facility] Address: [address] [place] [address] Performed By: #### 2 4356-8 ####[facility]ATORYCLIA [id number] [address] Hemoglobin Ql (U) Negative Normal Negative [facility] Comment on above: Order Comment: Speci men Type: URINE SPECIMENOrdering Facility: [facility] Address: [address] [place] [address] Performed By: #### 2 4356-8 ####[facility]ATORYCLIA [id number] [address] Hyaline casts (Urine sed) [#/Area] 1-3 /LPF Abnormal 0 /LPF [facility] Comment on above: Order Comment: Speci men Type: URINE SPECIMENOrdering Facility: [facility] Address: [address] [place] [address] Performed By: #### 2 4356-8 ####[facility]ORATORYCLIA [id number] [address] Ketones Ql (U) Negative Normal Negative [facility] Comment on above: Order Comment: Speci men Type: URINE SPECIMENOrdering Facility: [facility] Address: [address] [place] [address] Performed By: #### 2 4356-8 ####[facility]ORATORYCLIA [id number] [place] [address] Leukocyte esterase Test strip Ql (U) Negative Normal Negative [facility] Comment on above: Order Comment: Speci men Type: URINE SPECIMENOrdering Facility: [facility] Address: [address] [place] [address] Performed By: #### 2 4356-8 ####[facility]ATORYCLIA [id number] [address] [place] [facility] Nitrite Ql (U) Negative Normal Negative [facility] Comment on above: Order Comment: Speci men Type: URINE SPECIMENOrdering Facility: [facility] Address: [address] [place] [address] Performed By: #### 2 4356-8 ####[facility]ATORYCLIA [id number] [address] [place] [facility] pH (U) 6.0 [pH] Normal 5.0-8.0 [facility] Comment on above: Order Comment: Speci men Type: URINE SPECIMENOrdering Facility: [facility] Address: [address] [place] [address] Performed By: #### 2 4356-8 ####[facility]ATORYCLIA [id number] [address] Protein (U) [Mass/Vol] Negative Normal Negative [facility] Comment on above: Order Comment: Speci men Type: URINE SPECIMENOrdering Facility: [facility] Address: [address] [place] [address] Performed By: #### 2 4356-8 ####[facility]ATORYCLIA [id number] [address] RBC LM.HPF (Urine sed) [#/Area] 0-3 /HPF Normal 0-3 /HPF [facility] Comment on above: Order Comment: Speci men Type: URINE SPECIMENOrdering Facility: [facility] Address: [address] [place] [address] Performed By: #### 2 4356-8 ####[facility]ATORYCLIA [id number] [address] [place] Specific gravity (U) [Rel density] 1.015 Normal 1.005-1.030 [facility] Comment on above: Order Comment: Speci men Type: URINE SPECIMENOrdering Facility: [facility] Address: [address] [place] [address] Performed By: #### 2 4356-8 ####[facility]ATORYCLIA [id number] [address] [place] Urobilinogen Ql (U) Normal Normal Negative [facility] Comment on above: Order Comment: Speci men Type: URINE SPECIMENOrdering Facility: [facility] Address: [address] [place] [address] Performed By: #### 2 4356-8 ####[facility]ATORYCLIA [id number] [address] [place] WBC LM.HPF (Urine sed) [#/Area] 0-5 /HPF Normal 0-5 /HPF [facility] Comment on above: Order Comment: Speci men Type: URINE SPECIMENOrdering Facility: [facility] Address: [address] [place] [address] Performed By: #### 2 4356-8 ####[facility]ATORYCLIA [id number] [address] [place] XR ABDOMEN 1V SUPINEon [...] on above: Performed By: #### 6 00-7 ####[facility]ATORYCLIA [id number] [address] Bacteria identified Cx Nom (Bld) CULTURE, BLOOD: No growth 5 days Normal [facility] Comment on above: Performed By: #### 6 00-7 ####[facility]ORYCLIA [id number] [address] OF [facility] CBC W Auto Differential pane l (Bld)on 08-04-2021 Basophils (Bld) [#/Vol] 0.05 10*3/uL Normal <0.11 [facility] Comment on above: Order Comment: Speci men Type: BLOOD SPECIMENOrdering Facility: [facility] Address: [address] [place] [address] Performed By: #### 5 7021-8 ####[facility]ORYCLIA [id number] [address] Basophils/100 WBC (Bld) 0.4 % Normal [facility] Comment on above: Order Comment: Speci men Type: BLOOD SPECIMENOrdering Facility: [facility] Address: [address] [place] [address] Performed By: #### 5 7021-8 ####[facility]ORYCLIA [id number] [address] Differential cell count method Nom (Bld) Auto Normal [facility] Comment on above: Order Comment: Speci men Type: BLOOD SPECIMENOrdering Facility: [facility] Address: [address] [place] [address] Performed By: #### 5 7021-8 ####[facility]ATORYCLIA [id number] [address] OF [facility] Eosinophils (Bld) [#/Vol] 0.21 10*3/uL Normal <0.46 [facility] Comment on above: Order Comment: Speci men Type: BLOOD SPECIMENOrdering Facility: [facility] Address: [address] [place] [address] Performed By: #### 5 7021-8 ####[facility]ATORYCLIA [id number] [address] [place] [facility] Eosinophils/100 WBC (Bld) 1.7 % Normal [facility] Comment on above: Order Comment: Speci men Type: BLOOD SPECIMENOrdering Facility: [facility] Address: [address] [place] [address] Performed By: #### 5 7021-8 ####[facility]ATORYCLIA [id number] [address] [place] Erythrocyte distribution width (RBC) [Ratio] 18.1 % High 11.5-15.0 [facility] Comment on above: Order Comment: Speci men Type: BLOOD SPECIMENOrdering Facility: [facility] Address: [address] [place] [address] Performed By: #### 5 7021-8 ####[facility]ATORYCLIA [id number] [address] Hematocrit (Bld) [Volume fraction] 32.0 % Low 39.0-51.0 [facility] Comment on above: Order Comment: Speci men Type: BLOOD SPECIMENOrdering Facility: [facility] Address: [address] [place] [address] Performed By: #### 5 7021-8 ####[facility]ATORYCLIA [id number] [address] [place] Hemoglobin (Bld) [Mass/Vol] 10.0 g/dL Low 13.0-17.0 [facility] Comment on above: Order Comment: Speci men Type: BLOOD SPECIMENOrdering Facility: [facility] Address: [address] [place] [address] Performed By: #### 5 7021-8 ####[facility]ATORYCLIA [id number] [address] [place] IMMATURE GRAN % 0.6 % Normal [facility] Comment on above: Order Comment: Speci men Type: BLOOD SPECIMENOrdering Facility: [facility] Address: [address] [place] [address] Performed By: #### 5 7021-8 ####[facility]ATORYCLIA [id number] [address] IMMATURE GRAN ABS 0.08 k/uL Normal <0.10 [facility] Comment on above: Order Comment: Speci men Type: BLOOD SPECIMENOrdering Facility: [facility] Address: [address] [place] [address] Performed By: #### 5 7021-8 ####[facility]ORYCLIA [id number] [address] Lymphocytes (Bld) [#/Vol] 2.55 10*3/uL Normal 1.00-4.00 [facility] Comment on above: Order Comment: Speci men Type: BLOOD SPECIMENOrdering Facility: [facility] Address: [address] [place] [address] Performed By: #### 5 7021-8 ####[facility]ORYCLIA [id number] [address] Lymphocytes/100 WBC (Bld) 20.5 % Normal [facility] Comment on above: Order Comment: Speci men Type: BLOOD SPECIMENOrdering Facility: [facility] Address: [address] [place] [address] Performed By: #### 5 7021-8 ####[facility]ATORYCLIA [id number] [address] MCH (RBC) [Entitic mass] 28.9 pg Normal 26.0-34.0 [facility] Comment on above: Order Comment: Speci men Type: BLOOD SPECIMENOrdering Facility: [facility] Address: [address] [place] [address] Performed By: #### 5 7021-8 ####[facility]ORYCLIA [id number] [address] MCHC (RBC) [Mass/Vol] 31.3 g/dL Normal 30.5-36.0 [facility] Comment on above: Order Comment: Speci men Type: BLOOD SPECIMENOrdering Facility: [facility] Address: [address] [place] [address] Performed By: #### 5 7021-8 ####[facility]ORYCLIA [id number] [address] [place] MCV (RBC) [Entitic vol] 92.5 fL Normal 80.0-100.0 [facility] Comment on above: Order Comment: Speci men Type: BLOOD SPECIMENOrdering Facility: [facility] Address: [address] [place] [address] Performed By: #### 5 7021-8 ####[facility]ATORYCLIA [id number] [address] [place] Monocytes (Bld) [#/Vol] 0.85 10*3/uL Normal <0.87 [facility] Comment on above: Order Comment: Speci men Type: BLOOD SPECIMENOrdering Facility: [facility] Address: [address] [place] [address] Performed By: #### 5 7021-8 ####[facility]ATORYCLIA [id number] [address] OF [facility] Monocytes/100 WBC (Bld) 6.8 % Normal [facility] Comment on above: Order Comment: Speci men Type: BLOOD SPECIMENOrdering Facility: [facility] Address: [address] [place] [address] Performed By: #### 5 7021-8 ####[facility]ATORYCLIA [id number] [address] [place] Neutrophils (Bld) [#/Vol] 8.68 10*3/uL High 1.45-7.50 [facility] Comment on above: Order Comment: Speci men Type: BLOOD SPECIMENOrdering Facility: [facility] Address: [address] [place] [address] Performed By: #### 5 7021-8 ####[facility]ATORYCLIA [id number] [address] Neutrophils/100 WBC (Bld) 70.0 % Normal [facility] Comment on above: Order Comment: Speci men Type: BLOOD SPECIMENOrdering Facility: [facility] Address: [address] [place] [address] Performed By: #### 5 7021-8 ####[facility]ATORYCLIA [id number] [address] Nucleated RBC (Bld) [#/Vol] 10*3/uL Normal <0.01 [facility] Comment on above: Order Comment: Speci men Type: BLOOD SPECIMENOrdering Facility: [facility] Address: [address] [place] [address] Performed By: #### 5 7021-8 ####[facility]ATORYCLIA [id number] [address] [place] [facility] Nucleated RBC/100 WBC (Bld) [Ratio] 0.0 /100 WBC Normal [facility] Comment on above: Order Comment: Speci men Type: BLOOD SPECIMENOrdering Facility: [facility] Address: [address] [place] [address] Performed By: #### 5 7021-8 ####[facility]ATORYCLIA [id number] [address] [place] Platelet mean volume (Bld) [Entitic vol] 10.0 fL Normal 9.0-12.7 [facility] Comment on above: Order Comment: Speci men Type: BLOOD SPECIMENOrdering Facility: [facility] Address: [address] [place] [address] Performed By: #### 5 7021-8 ####[facility]ATORYCLIA [id number] [address] [place] Platelets (Bld) [#/Vol] 393 10*3/uL Normal 150-400 [facility] Comment on above: Order Comment: Speci men Type: BLOOD SPECIMENOrdering Facility: [facility] Address: [address] [place] [address] Performed By: #### 5 7021-8 ####[facility]ORYCLIA [id number] [address] RBC (Bld) [#/Vol] 3.46 10*6/uL Low 4.20-6.00 [facility] Comment on above: Order Comment: Speci men Type: BLOOD SPECIMENOrdering Facility: [facility] Address: [address] [place] [address] Performed By: #### 5 7021-8 ####[facility]ATORYCLIA [id number] [address] WBC (Bld) [#/Vol] 12.42 10*3/uL High 3.70-11.00 [facility] Comment on above: Order Comment: Speci men Type: BLOOD SPECIMENOrdering Facility: [facility] Address: [address] [place] [address] Performed By: #### 5 7021-8 ####[facility]ATORYCLIA [id number] [address] BRAIN WO IVCONon 08-05-[address] BRAIN WO IVCON Normal [facility] Lactate (Bld) [Moles/Vol]on 08-04-2021 Lactate [Moles/Vol] 1.4 mmol/L Normal 0.5-2.2 [facility] Comment on above: Order Comment: Speci men Type: BLOOD SPECIMENOrdering Facility: [facility] Address: [address] [place] [address] Performed By: #### 3 2693-4 ####[facility]ATORYCLIA [id number] [address] PROCALCITONIN (LAB)on 2021 Procalcitonin [Mass/Vol] 0.08 ng/mL Normal <0.09 [facility] Comment on above: Order Comment: Speci men Type: BLOOD SPECIMENOrdering Facility: [facility] Address: [facility] [place] [address] Result Comment: For a guided interpretation of test results, please visit the Change in Procalcitonin Calculator, [email or web address]. Performed By: #### P ROCAL ####[facility]ATORYCLIA [id number] [address] Prealbumin [Mass/Vol]on 07-07 Prealbumin Nephelometry [Mass/Vol] 35 mg/dL Normal [facility] Comment on above: Order Comment: Speci men Type: BLOOD SPECIMENOrdering Facility: [facility] Address: [address] [place] [address] Performed By: #### 1 4338-8 ####[facility]ATORYCLIA [id number] [address] SARS-CoV-2 RNA Resp Ql MEGAN+p robeon 08-04-2021 SARS-CoV-2 (COVID-19) RNA MEGAN+probe Ql (Resp) COVID 19 RESULT: SARS-CoV-2 (Agent of COVID-19) Not Detected by RT-PCR or equivalent method. This test has been authorized by FDA under an Emergency Use Authorization (EUA). Normal [facility] Comment on above: Performed By: #### 9 4500-6 ####[facility]ATORYCLIA [id number] [address] [place] [facility] TYPE AND SCREENon 08-04-2021 ABO O Normal [facility] Comment on above: Order Comment: Speci men Type: BLOOD SPECIMENOrdering Facility: [facility] Address: [address] [place] [address] Performed By: #### T SCR ####[facility] BANKCLIA [id number] [address] HISTORICAL AB SCR STATUS Negative Normal [facility] Comment on above: Order Comment: Speci men Type: BLOOD SPECIMENOrdering Facility: [facility] Address: [address] [place] [address] Performed By: #### T SCR ####[facility] BANKCLIA [id number] [address] Rh Nom (Bld) Positive Normal [facility] Comment on above: Order Comment: Speci men Type: BLOOD SPECIMENOrdering Facility: [facility] Address: [address] [place] [address] Performed By: #### T SCR ####[facility] BANKCLIA [id number] [address] TYPE AND SCREEN EXPIRATION 08/07/2021 23:59 Normal [facility] Comment on above: Order Comment: Speci men Type: BLOOD SPECIMENOrdering Facility: [facility] Address: [address] [place] [address] Performed By: #### T SCR ####[facility] BLOOD BANKCLIA [id number] [address] aPTT PPPon 08-04-2021 aPTT Coag (PPP) [Time] 51.8 s High 23.0-32.4 [facility] Comment on above: Order Comment: Speci men Type: BLOOD SPECIMENOrdering Facility: [facility] Address: [address] [place] [address] Performed By: #### 1 [id number] ####[facility] LABORATORYCLIA [id number] [address] Basic metabolic 2000 panelon 08-03-2021 Anion gap [Moles/Vol] 9 mmol/L Normal 9-18 [facility] Comment on above: Order Comment: Speci men Type: BLOOD SPECIMENOrdering Facility: [facility] [facility] Address: [address] [place] [address] Performed By: #### 2 4321-2, 74201-1, 2777-1 ####[facility]ATORYCLIA [id number] [address] Calcium [Mass/Vol] 9.3 mg/dL Normal 8.5-10.2 [facility] Comment on above: Order Comment: Speci men Type: BLOOD SPECIMENOrdering Facility: [facility] Address: [address] [place] [address] Performed By: #### 2 4321-2, , 2776-05 ####[facility]ATORYCLIA [id number] [place] [address] [place] Chloride [Moles/Vol] 97 mmol/L Normal 97-105 [facility] Comment on above: Order Comment: Speci men Type: BLOOD SPECIMENOrdering Facility: [facility] Address: [address] [place] [address] Performed By: #### 2 4321-2, , 2776-05 ####[facility]ATORYCLIA [id number] [place] [address] [place] CO2 [Moles/Vol] 27 mmol/L Normal 22-30 [facility] Comment on above: Order Comment: Speci men Type: BLOOD SPECIMENOrdering Facility: [facility] Address: [address] [place] [address] Performed By: #### 2 4321-2, , 2776-05 ####[facility]ATORYCLIA [id number] [address] [place] Creatinine [Mass/Vol] 0.63 mg/dL Low 0.73-1.22 [facility] Comment on above: Order Comment: Speci men Type: BLOOD SPECIMENOrdering Facility: [facility] Address: [address] [place] [address] Performed By: #### 2 4321-2, , 2776-05 ####[facility]ATORYCLIA [id number] [address] ESTIMATED GLOMERULAR FILTRATION RATE 103 mL/min/1.73m??? Normal >=60 [facility] Comment on above: Order Comment: Speci men Type: BLOOD SPECIMENOrdering Facility: [facility] Address: [address] [place] [address] Result Comment: Luzmaria mated Glomerular Filtration Rate [...] #### 2 4321-2, , 2776-05 ####[facility] SERVICESIA [id number] [place] [address] [place] Glucose [Mass/Vol] 136 mg/dL High 74-99 [facility] Comment on above: Order Comment: Shira feldman Type: BLOOD SPECIMENOrdering Facility: [facility] Address: [address] [place] [address] Result Comment: [employer] [place] [employer] [...] Performed By: #### 2 4321-2, , 2776-05 ####[facility]ORATORYCLIA [id number] [place] [id number] [place] Potassium [Moles/Vol] 4.1 mmol/L Normal 3.7-5.1 [facility] Comment on above: Order Comment: Shira feldman Type: BLOOD SPECIMENOrdering Facility: [facility] Address: [address] [id number] Performed By: #### 2 4321-2, , 2776-05 ####[facility]ATORYCLIA [id number] [place] [address] [place] Sodium [Moles/Vol] 133 mmol/L Low 136-144 [facility] Comment on above: Order Comment: Speci men Type: BLOOD SPECIMENOrdering Facility: [facility] Address: [address] [place] [address] Performed By: #### 2 4321-2, 20656-2, 2777-1 ####[facility]ATORYCLIA [id number] [address] [place] Urea nitrogen [Mass/Vol] 40 mg/dL High 9-24 [facility] Comment on above: Order Comment: Speci men Type: BLOOD SPECIMENOrdering Facility: [facility] Address: [address] [place] [address] Performed By: #### 2 4321-2, , 2777 ####[facility]ATORYCLIA [id number] [address] [facility] CASE MANAGEMon 08-03-2021 CASE MANAGEM Normal [facility] CBC W Auto Differential pane l (Bld)on 08-03-2021 Basophils (Bld) [#/Vol] 0.06 10*3/uL Normal <0.11 [facility] Comment on above: Order Comment: Speci men Type: BLOOD SPECIMENOrdering Facility: [facility] Address: [address] [place] [address] Performed By: #### 5 7021-8 ####[facility]ATORYCLIA [id number] [address] [place] Basophils/100 WBC (Bld) 0.5 % Normal [facility] Comment on above: Order Comment: Speci men Type: BLOOD SPECIMENOrdering Facility: [facility] Address: [address] [place] [address] Performed By: #### 5 7021-8 ####[facility]ATORYCLIA [id number] [place] [address] [place] Differential cell count method Nom (Bld) Auto Normal [facility] Comment on above: Order Comment: Speci men Type: BLOOD SPECIMENOrdering Facility: [facility] Address: [address] [place] [address] Performed By: #### 5 7021-8 ####[facility]ATORYCLIA [id number] [address] [place] Eosinophils (Bld) [#/Vol] 0.23 10*3/uL Normal <0.46 [facility] Comment on above: Order Comment: Speci men Type: BLOOD SPECIMENOrdering Facility: [facility] Address: [address] [place] [address] Performed By: #### 5 7021-8 ####[facility]ATORYCLIA [id number] [address] Eosinophils/100 WBC (Bld) 1.8 % Normal [facility] Comment on above: Order Comment: Speci men Type: BLOOD SPECIMENOrdering Facility: [facility] Address: [address] [place] [address] Performed By: #### 5 7021-8 ####[facility]ATORYCLIA [id number] [address] Erythrocyte distribution width (RBC) [Ratio] 17.6 % High 11.5-15.0 [facility] Comment on above: Order Comment: Speci men Type: BLOOD SPECIMENOrdering Facility: [facility] Address: [address] [place] [address] Performed By: #### 5 7021-8 ####[facility]ATORYCLIA [id number] [address] Hematocrit (Bld) [Volume fraction] 30.7 % Low 39.0-51.0 [facility] Comment on above: Order Comment: Speci men Type: BLOOD SPECIMENOrdering Facility: [facility] Address: [address] [place] [address] Performed By: #### 5 7021-8 ####[facility]ATORYCLIA [id number] [address] [facility] Hemoglobin (Bld) [Mass/Vol] 9.3 g/dL Low 13.0-17.0 [facility] Comment on above: Order Comment: Speci men Type: BLOOD SPECIMENOrdering Facility: [facility] Address: [address] [place] [address] Performed By: #### 5 7021-8 ####[facility]ATORYCLIA [id number] [address] IMMATURE GRAN % 0.6 % Normal [facility] Comment on above: Order Comment: Speci men Type: BLOOD SPECIMENOrdering Facility: [facility] Address: [address] [place] [address] Performed By: #### 5 7021-8 ####[facility]ATORYCLIA [id number] [address] IMMATURE GRAN ABS 0.08 k/uL Normal <0.10 [facility] Comment on above: Order Comment: Speci men Type: BLOOD SPECIMENOrdering Facility: [facility] Address: [address] [place] [address] Performed By: #### 5 7021-8 ####[facility]ATORYCLIA [id number] [address] Lymphocytes (Bld) [#/Vol] 2.45 10*3/uL Normal 1.00-4.00 [facility] Comment on above: Order Comment: Speci men Type: BLOOD SPECIMENOrdering Facility: [facility] Address: [address] [place] [address] Performed By: #### 5 7021-8 ####[facility]ATORYCLIA [id number] [address] Lymphocytes/100 WBC (Bld) 19.7 % Normal [facility] Comment on above: Order Comment: Speci men Type: BLOOD SPECIMENOrdering Facility: [facility] Address: [address] [place] [address] Performed By: #### 5 7021-8 ####[facility]ATORYCLIA [id number] [address] MCH (RBC) [Entitic mass] 28.2 pg Normal 26.0-34.0 [facility] Comment on above: Order Comment: Speci men Type: BLOOD SPECIMENOrdering Facility: [facility] Address: [address] [place] [address] Performed By: #### 5 7021-8 ####[facility]ATORYCLIA [id number] [address] MCHC (RBC) [Mass/Vol] 30.3 g/dL Low 30.5-36.0 [facility] Comment on above: Order Comment: Speci men Type: BLOOD SPECIMENOrdering Facility: [facility] Address: [address] [place] [address] Performed By: #### 5 7021-8 ####[facility]ATORYCLIA [id number] [address] MCV (RBC) [Entitic vol] 93.0 fL Normal 80.0-100.0 [facility] Comment on above: Order Comment: Speci men Type: BLOOD SPECIMENOrdering Facility: [facility] Address: [address] [place] [address] Performed By: #### 5 7021-8 ####[facility]ATORYCLIA [id number] [address] Monocytes (Bld) [#/Vol] 0.72 10*3/uL Normal <0.87 [facility] Comment on above: Order Comment: Speci men Type: BLOOD SPECIMENOrdering Facility: [facility] Address: [address] [place] [address] Performed By: #### 5 7021-8 ####[facility]ATORYCLIA [id number] [address] Monocytes/100 WBC (Bld) 5.8 % Normal [facility] Comment on above: Order Comment: Speci men Type: BLOOD SPECIMENOrdering Facility: [facility] Address: [address] [address] Performed By: #### 5 7021-8 ####[facility]ATORYCLIA [id number] [address] [place] Neutrophils (Bld) [#/Vol] 8.92 10*3/uL High 1.45-7.50 [facility] Comment on above: Order Comment: Speci men Type: BLOOD SPECIMENOrdering Facility: [facility] Address: [address] [place] [address] Performed By: #### 5 7021-8 ####[facility]ATORYCLIA [id number] [address] [place] Neutrophils/100 WBC (Bld) 71.6 % Normal [facility] Comment on above: Order Comment: Speci men Type: BLOOD SPECIMENOrdering Facility: [facility] Address: [address] [place] [address] Performed By: #### 5 7021-8 ####[facility]ATORYCLIA [id number] [address] [place] Nucleated RBC (Bld) [#/Vol] 10*3/uL Normal <0.01 [facility] Comment on above: Order Comment: Speci men Type: BLOOD SPECIMENOrdering Facility: [facility] Address: [address] [place] [address] Performed By: #### 5 7021-8 ####[facility]ORYCLIA [id number] [address] [place] Nucleated RBC/100 WBC (Bld) [Ratio] 0.0 /100 WBC Normal [facility] Comment on above: Order Comment: Speci men Type: BLOOD SPECIMENOrdering Facility: [facility] Address: [address] [place] [address] Performed By: #### 5 7021-8 ####[facility]ATORYCLIA [id number] [place] [address] Platelet mean volume (Bld) [Entitic vol] 10.2 fL Normal 9.0-12.7 [facility] Comment on above: Order Comment: Speci men Type: BLOOD SPECIMENOrdering Facility: [facility] Address: [address] [place] [address] Performed By: #### 5 7021-8 ####[facility]ORYCLIA [id number] [address] [place] Platelets (Bld) [#/Vol] 352 10*3/uL Normal 150-400 [facility] Comment on above: Order Comment: Speci men Type: BLOOD SPECIMENOrdering Facility: [facility] Address: [address] [place] [address] Performed By: #### 5 7021-8 ####[facility]ATORYCLIA [id number] [address] [place] [facility] RBC (Bld) [#/Vol] 3.30 10*6/uL Low 4.20-6.00 [facility] Comment on above: Order Comment: Speci men Type: BLOOD SPECIMENOrdering Facility: [facility] Address: [address] [place] [address] Performed By: #### 5 7021-8 ####[facility]ORYCLIA [id number] [address] [place] WBC (Bld) [#/Vol] 12.46 10*3/uL High 3.70-11.00 [facility] Comment on above: Order Comment: Speci men Type: BLOOD SPECIMENOrdering Facility: [facility] Address: [address] [place] [address] Performed By: #### 5 7021-8 ####[facility]ATORYCLIA [id number] [address] [facility] CONSULT PROGon 08-03-2021 CONSULT PROG Normal [facility] Magnesium SerPl-mCncon 08-03 Magnesium [Mass/Vol] 2.2 mg/dL Normal 1.7-2.3 [facility] Comment on above: Order Comment: Speci men Type: BLOOD SPECIMENOrdering Facility: [facility] Address: [address] [place] [address] Performed By: #### 2 4321-2, 61015-9, 2776- ####[facility]ATORYCLIA [id number] [address] [place] [facility] NURSING PROGon 08-03-2021 NURSING PROG Normal [facility] Phosphate SerPl-mCncon 08-03 Phosphate [Mass/Vol] 4.2 mg/dL Normal 2.7-4.8 [facility] Comment on above: Order Comment: Speci men Type: BLOOD SPECIMENOrdering Facility: [facility] Address: [address] [place] [address] Performed By: #### 2 4321-2, , 2776-05 ####[facility]ATORYCLIA [id number] [address] aPTT PPPon 08-03-2021 aPTT Coag (PPP) [Time] 50.0 s High 23.0-32.4 [facility] Comment on above: Order Comment: Speci men Type: BLOOD SPECIMENOrdering Facility: [facility] Address: [address] [place] [address] Performed By: #### 1 4979-9 ####[facility]ORYCLIA [id number] [address] [place] [facility] CBC W Auto Differential pane l (Bld)on 08-02-2021 Basophils (Bld) [#/Vol] 10*3/uL Normal <0.11 [facility] Comment on above: Order Comment: Speci men Type: BLOOD SPECIMENOrdering Facility: [facility] Address: [address] [place] [address] Performed By: #### 5 7021-8 ####[facility]ORYCLIA [id number] [address] Basophils/100 WBC (Bld) 0.2 % Normal [facility] Comment on above: Order Comment: Speci men Type: BLOOD SPECIMENOrdering Facility: [facility] Address: [address] [place] [address] Performed By: #### 5 7021-8 ####[facility]ATORYCLIA [id number] [place] [address] [place] Differential cell count method Nom (Bld) Auto Normal [facility] Comment on above: Order Comment: Speci men Type: BLOOD SPECIMENOrdering Facility: [facility] Address: [address] [place] [address] Performed By: #### 5 7021-8 ####[facility]ATORYCLIA [id number] [place] [address] [place] Eosinophils (Bld) [#/Vol] 10*3/uL Normal <0.46 [facility] Comment on above: Order Comment: Speci men Type: BLOOD SPECIMENOrdering Facility: [facility] Address: [address] [place] [address] Performed By: #### 5 7021-8 ####[facility]ORYCLIA [id number] [address] [place] [facility] Eosinophils/100 WBC (Bld) 0.0 % Normal [facility] Comment on above: Order Comment: Speci men Type: BLOOD SPECIMENOrdering Facility: [facility] Address: [address] [place] [address] Performed By: #### 5 7021-8 ####[facility]ATORYCLIA [id number] [place] [address] [place] Erythrocyte distribution width (RBC) [Ratio] 17.3 % High 11.5-15.0 [facility] Comment on above: Order Comment: Speci men Type: BLOOD SPECIMENOrdering Facility: [facility] Address: [address] [place] [address] Performed By: #### 5 7021-8 ####[facility]ATORYCLIA [id number] [address] Hematocrit (Bld) [Volume fraction] 30.8 % Low 39.0-51.0 [facility] Comment on above: Order Comment: Speci men Type: BLOOD SPECIMENOrdering Facility: [facility] Address: [address] [place] [address] Performed By: #### 5 7021-8 ####[facility]ATORYCLIA [id number] [address] [place] Hemoglobin (Bld) [Mass/Vol] 9.7 g/dL Low 13.0-17.0 [facility] Comment on above: Order Comment: Speci men Type: BLOOD SPECIMENOrdering Facility: [facility] Address: [address] [place] [address] Performed By: #### 5 7021-8 ####[facility]ATORYCLIA [id number] [address] IMMATURE GRAN % 0.5 % Normal [facility] Comment on above: Order Comment: Speci men Type: BLOOD SPECIMENOrdering Facility: [facility] Address: [address] [place] [address] Performed By: #### 5 7021-8 ####[facility]ORYCLIA [id number] [address] IMMATURE GRAN ABS 0.07 k/uL Normal <0.10 [facility] Comment on above: Order Comment: Speci men Type: BLOOD SPECIMENOrdering Facility: [facility] Address: [address] [place] [address] Performed By: #### 5 7021-8 ####[facility]ATORYCLIA [id number] [address] [place] Lymphocytes (Bld) [#/Vol] 1.60 10*3/uL Normal 1.00-4.00 [facility] Comment on above: Order Comment: Speci men Type: BLOOD SPECIMENOrdering Facility: [facility] Address: [address] [place] [address] Performed By: #### 5 7021-8 ####[facility]ATORYCLIA [id number] [address] Lymphocytes/100 WBC (Bld) 12.1 % Normal [facility] Comment on above: Order Comment: Speci men Type: BLOOD SPECIMENOrdering Facility: [facility] Address: [address] [place] [address] Performed By: #### 5 7021-8 ####[facility]ATORYCLIA [id number] [address] MCH (RBC) [Entitic mass] 28.6 pg Normal 26.0-34.0 [facility] Comment on above: Order Comment: Speci men Type: BLOOD SPECIMENOrdering Facility: [facility] Address: [address] [place] [address] Performed By: #### 5 7021-8 ####[facility]ORYCLIA [id number] [address] MCHC (RBC) [Mass/Vol] 31.5 g/dL Normal 30.5-36.0 [facility] Comment on above: Order Comment: Speci men Type: BLOOD SPECIMENOrdering Facility: [facility] Address: [address] [place] [address] Performed By: #### 5 7021-8 ####[facility]ATORYCLIA [id number] [address] MCV (RBC) [Entitic vol] 90.9 fL Normal 80.0-100.0 [facility] Comment on above: Order Comment: Speci men Type: BLOOD SPECIMENOrdering Facility: [facility] Address: [address] [place] [address] Performed By: #### 5 7021-8 ####[facility]ATORYCLIA [id number] [address] Monocytes (Bld) [#/Vol] 0.39 10*3/uL Normal <0.87 [facility] Comment on above: Order Comment: Speci men Type: BLOOD SPECIMENOrdering Facility: [facility] Address: [address] [place] [address] Performed By: #### 5 7021-8 ####[facility] LABORATORYCLIA [id number] [address] [place] Monocytes/100 WBC (Bld) 3.0 % Normal [facility] Comment on above: Order Comment: Speci men Type: BLOOD SPECIMENOrdering Facility: [facility] Address: [address] [place] [address] Performed By: #### 5 7021-8 ####[facility]ATORYCLIA [id number] [place] [address] [place] Neutrophils (Bld) [#/Vol] 11.09 10*3/uL High 1.45-7.50 [facility] Comment on above: Order Comment: Speci men Type: BLOOD SPECIMENOrdering Facility: [facility] Address: [address] [place] [address] Performed By: #### 5 7021-8 ####[facility]ORYCLIA [id number] [address] [place] Neutrophils/100 WBC (Bld) 84.2 % Normal [facility] Comment on above: Order Comment: Speci men Type: BLOOD SPECIMENOrdering Facility: [facility] Address: [address] [place] [address] Performed By: #### 5 7021-8 ####[facility]ORATORYCLIA [id number] [place] [address] [place] Nucleated RBC (Bld) [#/Vol] 10*3/uL Normal <0.01 [facility] Comment on above: Order Comment: Speci men Type: BLOOD SPECIMENOrdering Facility: [facility] Address: [address] [place] [address] Performed By: #### 5 7021-8 ####[facility]ATORYCLIA [id number] [address] [place] Nucleated RBC/100 WBC (Bld) [Ratio] 0.0 /100 WBC Normal [facility] Comment on above: Order Comment: Speci men Type: BLOOD SPECIMENOrdering Facility: [facility] Address: [address] [place] [address] Performed By: #### 5 7021-8 ####[facility]ATORYCLIA [id number] [place] [address] [place] Platelet mean volume (Bld) [Entitic vol] 10.0 fL Normal 9.0-12.7 [facility] Comment on above: Order Comment: Speci men Type: BLOOD SPECIMENOrdering Facility: [facility] Address: [address] [place] [address] Performed By: #### 5 7021-8 ####[facility]ORYCLIA [id number] [place] [address] [place] Platelets (Bld) [#/Vol] 358 10*3/uL Normal 150-400 [facility] Comment on above: Order Comment: Speci men Type: BLOOD SPECIMENOrdering Facility: [facility] Address: [address] [place] [address] Performed By: #### 5 7021-8 ####[facility]ORYCLIA [id number] [place] [address] [place] RBC (Bld) [#/Vol] 3.39 10*6/uL Low 4.20-6.00 [facility] Comment on above: Order Comment: Speci men Type: BLOOD SPECIMENOrdering Facility: [facility] Address: [address] [place] [address] Performed By: #### 5 7021-8 ####[facility]ORYCLIA [id number] [place] [address] [place] WBC (Bld) [#/Vol] 13.17 10*3/uL High 3.70-11.00 [facility] Comment on above: Order Comment: Speci men Type: BLOOD SPECIMENOrdering Facility: [facility] Address: [address] [place] [address] Performed By: #### 5 7021-8 ####[facility]ATORYCLIA [id number] [address] [facility] NURSING PROGon 08-02-2021 NURSING PROG Normal [facility] THERAPY NTon 08-02-2021 THERAPY NT Normal [facility] aPTT PPPon 08-02-2021 aPTT Coag (PPP) [Time] 54.9 s High 23.0-32.4 [facility] Comment on above: Order Comment: Speci men Type: BLOOD SPECIMENOrdering Facility: [facility] Address: [address] [place] [address] Performed By: #### 1 4979-9 ####[facility]ORYCLIA [id number] [address] [place] ALLIED HEALTHon 08-01-2021 ALLIED HEALTH Normal [facility] ALLIED HEALTH Normal [facility] Basic metabolic 2000 panelon 08-01-2021 Anion gap [Moles/Vol] 12 mmol/L Normal 9-18 [facility] Comment on above: Order Comment: Speci men Type: BLOOD SPECIMENOrdering Facility: [facility] Address: [address] [place] [address] Performed By: #### 2 4321-2, 65331-6, 76769-7, 2777-1 ####[facility]ATORYCLIA [id number] [place] [address] [place] Calcium [Mass/Vol] 9.1 mg/dL Normal 8.5-10.2 [facility] Comment on above: Order Comment: Speci men Type: BLOOD SPECIMENOrdering Facility: [facility] Address: [address] [place] [address] Performed By: #### 2 4321-2, 27030-5, 62693-8, 2777-1 ####[facility]ORATORYCLIA [id number] [place] [address] [place] Chloride [Moles/Vol] 96 mmol/L Low 97-105 [facility] Comment on above: Order Comment: Speci men Type: BLOOD SPECIMENOrdering Facility: [facility] Address: [address] [place], [place] [id number] Performed By: #### 2 4321-2, 31559-5, 74628-1, 277- ####[facility]ATORYCLIA [id number] [place] [address] [place] CO2 [Moles/Vol] 27 mmol/L Normal 22-30 [facility] Comment on above: Order Comment: Speci men Type: BLOOD SPECIMENOrdering Facility: [facility] [facility] Address: [address] [place] [address] Performed By: #### 2 4321-2, 25929-5, 02386-8, 2776- ####[facility]ORATORYCLIA [id number] [address] [place] [facility] Creatinine [Mass/Vol] 0.64 mg/dL Low 0.73-1.22 [facility] Comment on above: Order Comment: Speci men Type: BLOOD SPECIMENOrdering Facility: [facility] Address: [address] [place] [address] Performed By: #### 2 4321-2, 81904-4, 81817-3, 2776-05 ####[facility] LABORATORYCLIA [id number] [address] [place] ESTIMATED GLOMERULAR FILTRATION RATE 102 mL/min/1.73m??? Normal >=60 [facility] Comment on above: Order Comment: Speci men Type: BLOOD SPECIMENOrdering Facility: [facility] Address: [address] [place] [address] Result Comment: Luzmaria mated Glomerular Filtration Rate [...] actual GFR. Performed By: #### 2 4321-2, 61467-8, 07945-8, 2777-1 ####[facility]ORATORYCLIA [id number] [place] [address] [place] Glucose [Mass/Vol] 122 mg/dL High 74-99 [facility] Comment on above: Order Comment: Shira francia Type: BLOOD SPECIMENOrdering Facility: [facility] Address: [address] [place] [address] Result Comment: The [place] [employer] [...] 2016.39(Suppl 1). Performed By: #### 2 4321-2, 67787-4, 48693-5, 2777-1 ####[facility]ORATORYCLIA [id number] [place] [address] [place] Potassium [Moles/Vol] 4.2 mmol/L Normal 3.7-5.1 [facility] Comment on above: Order Comment: Shira francia Type: BLOOD SPECIMENOrdering Facility: [facility] Address: [address] [address] Performed By: #### 2 4321-2, 99763-0, 32968-0, 2777-1 ####[facility]ORATORYCLIA [id number] [place] [address] [place] Sodium [Moles/Vol] 135 mmol/L Low 136-144 [facility] Comment on above: Order Comment: Johni francia Type: BLOOD SPECIMENOrdering Facility: [facility] Address: [address] [address] Performed By: #### 2 4321-2, 21145-6, 17551-3, 2777-1 ####[facility]ORATORYCLIA [id number] [place] [address] [place] Urea nitrogen [Mass/Vol] 36 mg/dL High 9-24 [facility] Comment on above: Order Comment: Speci men Type: BLOOD SPECIMENOrdering Facility: [facility] Address: [address] [place] [address] Performed By: #### 2 4321-2, 96576-6, 01469-4, 2777-1 ####[facility]ORATORYCLIA [id number] [address] [place] [facility] CASE MANAGEMon 08-01-2021 CASE MANAGEM Normal [facility] CBC W Auto Differential pane l (Bld)on 08-01-2021 Basophils (Bld) [#/Vol] 0.04 10*3/uL Normal <0.11 [facility] Comment on above: Order Comment: Speci men Type: BLOOD SPECIMENOrdering Facility: [facility] Address: [address] [place] [address] Performed By: #### 5 7021-8 ####[facility]ORATORYCLIA [id number] [address] [place] Basophils/100 WBC (Bld) 0.3 % Normal [facility] Comment on above: Order Comment: Speci men Type: BLOOD SPECIMENOrdering Facility: [facility] Address: [address] [place] [address] Performed By: #### 5 7021-8 ####[facility]ORATORYCLIA [id number] [address] [place] [facility] Differential cell count method Nom (Bld) Auto Normal [facility] Comment on above: Order Comment: Speci men Type: BLOOD SPECIMENOrdering Facility: [facility] Address: [address] [place] [address] Performed By: #### 5 7021-8 ####[facility]ORATORYCLIA [id number] [address] [place] Eosinophils (Bld) [#/Vol] 0.37 10*3/uL Normal <0.46 [facility] Comment on above: Order Comment: Speci men Type: BLOOD SPECIMENOrdering Facility: [facility] Address: [address] [place] [address] Performed By: #### 5 7021-8 ####[facility]ORATORYCLIA [id number] [address] [place] Eosinophils/100 WBC (Bld) 3.1 % Normal [facility] Comment on above: Order Comment: Speci men Type: BLOOD SPECIMENOrdering Facility: [facility] Address: [address] [place] [address] Performed By: #### 5 7021-8 ####[facility]ORATORYCLIA [id number] [address] Erythrocyte distribution width (RBC) [Ratio] 17.5 % High 11.5-15.0 [facility] Comment on above: Order Comment: Speci men Type: BLOOD SPECIMENOrdering Facility: [facility] Address: [address] [place] [address] Performed By: #### 5 7021-8 ####[facility] LABORATORYCLIA [id number] [address] [place] Hematocrit (Bld) [Volume fraction] 30.1 % Low 39.0-51.0 [facility] Comment on above: Order Comment: Speci men Type: BLOOD SPECIMENOrdering Facility: [facility] Address: [address] [place] [address] Performed By: #### 5 7021-8 ####[facility]ORATORYCLIA [id number] [address] [place] Hemoglobin (Bld) [Mass/Vol] 9.1 g/dL Low 13.0-17.0 [facility] Comment on above: Order Comment: Speci men Type: BLOOD SPECIMENOrdering Facility: [facility] Address: [address] [address] Performed By: #### 5 7021-8 ####[facility]ORATORYCLIA [id number] [address] IMMATURE GRAN % 0.6 % Normal [facility] Comment on above: Order Comment: Speci men Type: BLOOD SPECIMENOrdering Facility: [facility] Address: [address] [place] [address] Performed By: #### 5 7021-8 ####[facility]ORATORYCLIA [id number] [address] IMMATURE GRAN ABS 0.07 k/uL Normal <0.10 [facility] Comment on above: Order Comment: Speci men Type: BLOOD SPECIMENOrdering Facility: [facility] Address: [address] [place] [address] Performed By: #### 5 7021-8 ####[facility]ORATORYCLIA [id number] [address] Lymphocytes (Bld) [#/Vol] 2.05 10*3/uL Normal 1.00-4.00 [facility] Comment on above: Order Comment: Speci men Type: BLOOD SPECIMENOrdering Facility: [facility] Address: [address] [place] [address] Performed By: #### 5 7021-8 ####[facility]ATORYCLIA [id number] [address] Lymphocytes/100 WBC (Bld) 17.1 % Normal [facility] Comment on above: Order Comment: Speci men Type: BLOOD SPECIMENOrdering Facility: [facility] Address: [address] [place] [address] Performed By: #### 5 7021-8 ####[facility]ORATORYCLIA [id number] [address] MCH (RBC) [Entitic mass] 27.7 pg Normal 26.0-34.0 [facility] Comment on above: Order Comment: Speci men Type: BLOOD SPECIMENOrdering Facility: [facility] Address: [address] [place] [address] Performed By: #### 5 7021-8 ####[facility]ATORYCLIA [id number] [address] MCHC (RBC) [Mass/Vol] 30.2 g/dL Low 30.5-36.0 [facility] Comment on above: Order Comment: Speci men Type: BLOOD SPECIMENOrdering Facility: [facility] Address: [address] [place] [address] Performed By: #### 5 7021-8 ####[facility]ORATORYCLIA [id number] [address] MCV (RBC) [Entitic vol] 91.5 fL Normal 80.0-100.0 [facility] Comment on above: Order Comment: Speci men Type: BLOOD SPECIMENOrdering Facility: [facility] Address: [address] [place] [address] Performed By: #### 5 7021-8 ####[facility]ORATORYCLIA [id number] [address] Monocytes (Bld) [#/Vol] 0.53 10*3/uL Normal <0.87 [facility] Comment on above: Order Comment: Speci men Type: BLOOD SPECIMENOrdering Facility: [facility] Address: [address] [place] [address] Performed By: #### 5 7021-8 ####[facility]ATORYCLIA [id number] [address] Monocytes/100 WBC (Bld) 4.4 % Normal [facility] Comment on above: Order Comment: Speci men Type: BLOOD SPECIMENOrdering Facility: [facility] Address: [address] [place] [address] Performed By: #### 5 7021-8 ####[facility]ORATORYCLIA [id number] [place] [address] [place] Neutrophils (Bld) [#/Vol] 8.91 10*3/uL High 1.45-7.50 [facility] Comment on above: Order Comment: Speci men Type: BLOOD SPECIMENOrdering Facility: [facility] Address: [address] [place] [address] Performed By: #### 5 7021-8 ####[facility]ORATORYCLIA [id number] [address] [place] Neutrophils/100 WBC (Bld) 74.5 % Normal [facility] Comment on above: Order Comment: Speci men Type: BLOOD SPECIMENOrdering Facility: [facility] Address: [address] [place] [address] Performed By: #### 5 7021-8 ####[facility]ORATORYCLIA [id number] [address] [place] Nucleated RBC (Bld) [#/Vol] 10*3/uL Normal <0.01 [facility] Comment on above: Order Comment: Speci men Type: BLOOD SPECIMENOrdering Facility: [facility] Address: [address] [place] [address] Performed By: #### 5 7021-8 ####[facility]ORATORYCLIA [id number] [address] [place] Nucleated RBC/100 WBC (Bld) [Ratio] 0.0 /100 WBC Normal [facility] Comment on above: Order Comment: Speci men Type: BLOOD SPECIMENOrdering Facility: [facility] Address: [address] [place] [address] Performed By: #### 5 7021-8 ####[facility]ATORYCLIA [id number] [address] [place] Platelet mean volume (Bld) [Entitic vol] 10.4 fL Normal 9.0-12.7 [facility] Comment on above: Order Comment: Speci men Type: BLOOD SPECIMENOrdering Facility: [facility] Address: [address] [place] [address] Performed By: #### 5 7021-8 ####[facility]ATORYCLIA [id number] [address] [place] [facility] Platelets (Bld) [#/Vol] 319 10*3/uL Normal 150-400 [facility] Comment on above: Order Comment: Speci men Type: BLOOD SPECIMENOrdering Facility: [facility] Address: [address] [place] [address] Performed By: #### 5 7021-8 ####[facility]ATORYCLIA [id number] [place] [address] [place] RBC (Bld) [#/Vol] 3.29 10*6/uL Low 4.20-6.00 [facility] Comment on above: Order Comment: Speci men Type: BLOOD SPECIMENOrdering Facility: [facility] Address: [address] [place] [address] Performed By: #### 5 7021-8 ####[facility]ATORYCLIA [id number] [address] [place] [facility] WBC (Bld) [#/Vol] 11.97 10*3/uL High 3.70-11.00 [facility] Comment on above: Order Comment: Speci men Type: BLOOD SPECIMENOrdering Facility: [facility] Address: [address] [place] [address] Performed By: #### 5 7021-8 ####[facility]ATORYCLIA [id number] [address] [place] CT BRAIN WO IVCONon 08-02-19 CT BRAIN WO IVCON Normal [facility] Magnesium SerPl-mCncon 08-01 Magnesium [Mass/Vol] 2.4 mg/dL High 1.7-2.3 [facility] Comment on above: Order Comment: Speci men Type: BLOOD SPECIMENOrdering Facility: [facility] Address: [address] [place] [address] Performed By: #### 2 4321-2, 76440-5, 49460-6, 2777-1 ####[facility]ATORYCLIA [id number] [address] [place] NURSING PROGon 08-01-2021 NURSING PROG Normal [facility] NUTRITIONon 08-01-2021 NUTRITION Normal [facility] Phosphate SerPl-mCncon 08-01 Phosphate [Mass/Vol] 3.3 mg/dL Normal 2.7-4.8 [facility] Comment on above: Order Comment: Speci men Type: BLOOD SPECIMENOrdering Facility: [facility] Address: [address] [place] [address] Performed By: #### 2 4321-2, 95035-4, 72239-8, 2777-1 ####[facility]ATORYCLIA [id number] [address] [place] Prealbumin [Mass/Vol]on 07-06 Prealbumin Nephelometry [Mass/Vol] 30 mg/dL Normal 17-36 [facility] Comment on above: Order Comment: Speci men Type: BLOOD SPECIMENOrdering Facility: [facility] Address: [address] [place] [address] Performed By: #### 2 4321-2, 58111-4, 49508-7, 2777-1 ####[facility]ATORYCLIA [id number] [address] [place] THERAPY NTon 08-01-2021 THERAPY NT Normal [facility] THERAPY NT Normal [facility] TYPE AND SCREENon 08-01-2021 ABO O Normal [facility] Comment on above: Order Comment: Speci men Type: BLOOD SPECIMENOrdering Facility: [facility] Address: [address] [place] [address] Performed By: #### T SCR ####[facility] BLOOD BANKCLIA [id number] [address] [place] HISTORICAL AB SCR STATUS Negative Normal [facility] Comment on above: Order Comment: Speci men Type: BLOOD SPECIMENOrdering Facility: [facility] Address: [address] [address] Performed By: #### T SCR ####[facility] BLOOD BANKCLIA [id number] [address] Rh Nom (Bld) Positive Normal [facility] Comment on above: Order Comment: Speci men Type: BLOOD SPECIMENOrdering Facility: [facility] Address: [address] [place] [address] Performed By: #### T SCR ####[facility] BLOOD BANKCLIA [id number] [address] TYPE AND SCREEN EXPIRATION 08/04/2021 23:59 Normal [facility] Comment on above: Order Comment: Speci men Type: BLOOD SPECIMENOrdering Facility: [facility] Address: [address] [place] [address] Performed By: #### T SCR ####[facility] BLOOD BANKCLIA [id number] [address] [place] [facility] XR CHEST 1V FRONTALon 2021 XR CHEST 1V FRONTAL Normal [facility] aPTT PPPon 08-01-2021 aPTT Coag (PPP) [Time] 50.9 s High 23.0-32.4 [facility] Comment on above: Order Comment: Speci men Type: BLOOD SPECIMENOrdering Facility: [facility] Address: [address] [place] [address] Performed By: #### 1 4979-9 ####[facility]ORATORYCLIA [id number] [address] CBC W Auto Differential pane l (Bld)on 07-31-2021 Basophils (Bld) [#/Vol] 0.05 10*3/uL Normal <0.11 [facility] Comment on above: Order Comment: Speci men Type: BLOOD SPECIMENOrdering Facility: [facility] Address: [address] [place] [address] Performed By: #### 5 7021-8 ####[facility]ORATORYCLIA [id number] [address] [place] Basophils/100 WBC (Bld) 0.4 % Normal [facility] Comment on above: Order Comment: Speci men Type: BLOOD SPECIMENOrdering Facility: [facility] Address: [address] [place] [address] Performed By: #### 5 7021-8 ####[facility]ATORYCLIA [id number] [address] [place] Differential cell count method Nom (Bld) Auto Normal [facility] Comment on above: Order Comment: Speci men Type: BLOOD SPECIMENOrdering Facility: [facility] Address: [address] [place] [address] Performed By: #### 5 7021-8 ####[facility] LABORATORYCLIA [id number] [place] [address] [place] Eosinophils (Bld) [#/Vol] 0.51 10*3/uL High <0.46 [facility] Comment on above: Order Comment: Speci men Type: BLOOD SPECIMENOrdering Facility: [facility] Address: [address] [place] [address] Performed By: #### 5 7021-8 ####[facility]ORATORYCLIA [id number] [address] [place] Eosinophils/100 WBC (Bld) 4.5 % Normal [facility] Comment on above: Order Comment: Speci men Type: BLOOD SPECIMENOrdering Facility: [facility] Address: [address] [place] [address] Performed By: #### 5 7021-8 ####[facility]ORATORYCLIA [id number] [address] [place] Erythrocyte distribution width (RBC) [Ratio] 17.5 % High 11.5-15.0 [facility] Comment on above: Order Comment: Speci men Type: BLOOD SPECIMENOrdering Facility: [facility] Address: [address] [place] [address] Performed By: #### 5 7021-8 ####[facility]ORATORYCLIA [id number] [address] Hematocrit (Bld) [Volume fraction] 30.4 % Low 39.0-51.0 [facility] Comment on above: Order Comment: Speci men Type: BLOOD SPECIMENOrdering Facility: [facility] Address: [address] [place] [address] Performed By: #### 5 7021-8 ####[facility]ORATORYCLIA [id number] [address] Hemoglobin (Bld) [Mass/Vol] 9.2 g/dL Low 13.0-17.0 [facility] Comment on above: Order Comment: Speci men Type: BLOOD SPECIMENOrdering Facility: [facility] Address: [address] [place] [address] Performed By: #### 5 7021-8 ####[facility]ORATORYCLIA [id number] [address] IMMATURE GRAN % 0.5 % Normal [facility] Comment on above: Order Comment: Speci men Type: BLOOD SPECIMENOrdering Facility: [facility] Address: [address] [place] [address] Performed By: #### 5 7021-8 ####[facility]ORATORYCLIA [id number] [address] IMMATURE GRAN ABS 0.06 k/uL Normal <0.10 [facility] Comment on above: Order Comment: Speci men Type: BLOOD SPECIMENOrdering Facility: [facility] Address: [address] [place] [address] Performed By: #### 5 7021-8 ####[facility]ORATORYCLIA [id number] [address] Lymphocytes (Bld) [#/Vol] 1.99 10*3/uL Normal 1.00-4.00 [facility] Comment on above: Order Comment: Speci men Type: BLOOD SPECIMENOrdering Facility: [facility] Address: [address] [place] [address] Performed By: #### 5 7021-8 ####[facility] LABORATORYCLIA [id number] [address] Lymphocytes/100 WBC (Bld) 17.6 % Normal [facility] Comment on above: Order Comment: Speci men Type: BLOOD SPECIMENOrdering Facility: [facility] Address: [address] [place] [address] Performed By: #### 5 7021-8 ####[facility] LABORATORYCLIA [id number] [address] MCH (RBC) [Entitic mass] 28.4 pg Normal 26.0-34.0 [facility] Comment on above: Order Comment: Speci men Type: BLOOD SPECIMENOrdering Facility: [facility] Address: [address] [place] [address] Performed By: #### 5 7021-8 ####[facility] LABORATORYCLIA [id number] [address] MCHC (RBC) [Mass/Vol] 30.3 g/dL Low 30.5-36.0 [facility] Comment on above: Order Comment: Speci men Type: BLOOD SPECIMENOrdering Facility: [facility] Address: [address] [place] [address] Performed By: #### 5 7021-8 ####[facility] LABORATORYCLIA [id number] [address] MCV (RBC) [Entitic vol] 93.8 fL Normal 80.0-100.0 [facility] Comment on above: Order Comment: Speci men Type: BLOOD SPECIMENOrdering Facility: [facility] Address: [address] [place] [address] Performed By: #### 5 7021-8 ####[facility] LABORATORYCLIA [id number] [address] Monocytes (Bld) [#/Vol] 0.57 10*3/uL Normal <0.87 [facility] Comment on above: Order Comment: Speci men Type: BLOOD SPECIMENOrdering Facility: [facility] Address: [address] [place] [address] Performed By: #### 5 7021-8 ####[facility]ORATORYCLIA [id number] [address] [place] Monocytes/100 WBC (Bld) 5.0 % Normal [facility] Comment on above: Order Comment: Speci men Type: BLOOD SPECIMENOrdering Facility: [facility] Address: [address] [place] [address] Performed By: #### 5 7021-8 ####[facility]ORATORYCLIA [id number] [address] [place] Neutrophils (Bld) [#/Vol] 8.12 10*3/uL High 1.45-7.50 [facility] Comment on above: Order Comment: Speci men Type: BLOOD SPECIMENOrdering Facility: [facility] Address: [address] [place] [address] Performed By: #### 5 7021-8 ####[facility]ORATORYCLIA [id number] [address] Neutrophils/100 WBC (Bld) 72.0 % Normal [facility] Comment on above: Order Comment: Speci men Type: BLOOD SPECIMENOrdering Facility: [facility] Address: [address] [place] [address] Performed By: #### 5 7021-8 ####[facility]ORATORYCLIA [id number] [address] [place] Nucleated RBC (Bld) [#/Vol] 10*3/uL Normal <0.01 [facility] Comment on above: Order Comment: Speci men Type: BLOOD SPECIMENOrdering Facility: [facility] Address: [address] [place] [address] Performed By: #### 5 7021-8 ####[facility]ORATORYCLIA [id number] [place] [address] [place] Nucleated RBC/100 WBC (Bld) [Ratio] 0.0 /100 WBC Normal [facility] Comment on above: Order Comment: Speci men Type: BLOOD SPECIMENOrdering Facility: [facility] Address: [address] [place] [address] Performed By: #### 5 7021-8 ####[facility] LABORATORYCLIA [id number] [place] [address] [place] Platelet mean volume (Bld) [Entitic vol] 10.9 fL Normal 9.0-12.7 [facility] Comment on above: Order Comment: Speci men Type: BLOOD SPECIMENOrdering Facility: [facility] Address: [address] [place] [address] Performed By: #### 5 7021-8 ####[facility] LABORATORYCLIA [id number] [address] [place] Platelets (Bld) [#/Vol] 303 10*3/uL Normal 150-400 [facility] Comment on above: Order Comment: Speci men Type: BLOOD SPECIMENOrdering Facility: [facility] Address: [address] [place] [address] Performed By: #### 5 7021-8 ####[facility] LABORATORYCLIA [id number] [place] [address] [place] RBC (Bld) [#/Vol] 3.24 10*6/uL Low 4.20-6.00 [facility] Comment on above: Order Comment: Speci men Type: BLOOD SPECIMENOrdering Facility: [facility] Address: [address] [place] [address] Performed By: #### 5 7021-8 ####[facility] LABORATORYCLIA [id number] [place] [address] [place] WBC (Bld) [#/Vol] 11.30 10*3/uL High 3.70-11.00 [facility] Comment on above: Order Comment: Speci men Type: BLOOD SPECIMENOrdering Facility: [facility] Address: [address] [place] [address] Performed By: #### 5 7021-8 ####[facility]ORATORYCLIA [id number] [place] NURSING PROGon 07-31-2021 NURSING PROG Normal [facility] aPTT PPPon 07-31-2021 aPTT Coag (PPP) [Time] 64.9 s High 23.0-32.4 [facility] Comment on above: Order Comment: Speci men Type: BLOOD SPECIMENOrdering Facility: [facility] Address: [address] [place] [address] Performed By: #### 1 4979-9 ####[facility]ORATORYCLIA [id number] [address] [place] ALLIED HEALTHon 07-30-2021 ALLIED HEALTH Normal [facility] Bacteria CSF Culton 07-31-19 22 Bacteria identified Cx Nom (CSF) CULTURE, CSF: No growth 14 days GRAM STAIN: No organisms seen Few Mononuclear cells Rare Polymorphonuclear leukocytes Gram stain performed on cytospun specimen. [facility] Comment on above: Performed By: #### 6 06-4 ####[facility]ORATORYCLIA [id number] [place] [address] [place] Basic metabolic 2000 panelon 07-30-2021 Anion gap [Moles/Vol] 9 mmol/L Normal 9-18 [facility] Comment on above: Order Comment: Speci men Type: BLOOD SPECIMENOrdering Facility: [facility] Address: [address] [place] [address] Performed By: #### 2 777-1, 22621-4, 47054-8 ####[facility]ATORYCLIA [id number] [place] [address] [place] Calcium [Mass/Vol] 8.9 mg/dL Normal 8.5-10.2 [facility] Comment on above: Order Comment: Speci men Type: BLOOD SPECIMENOrdering Facility: [facility] Address: [address] [place] [address] Performed By: #### 2 777-1, 07319-8, ####[facility]ATORYCLIA [id number] [place] [address] [place] Chloride [Moles/Vol] 95 mmol/L Low 97-105 [facility] Comment on above: Order Comment: Speci men Type: BLOOD SPECIMENOrdering Facility: [facility] Address: [address] [place] [address] Performed By: #### 2 777-1, 92920-9, ####[facility]ATORYCLIA [id number] [address] [place] CO2 [Moles/Vol] 28 mmol/L Normal 22-30 [facility] Comment on above: Order Comment: Speci men Type: BLOOD SPECIMENOrdering Facility: [facility] Address: [address] [place] [address] Performed By: #### 2 777-1, , ####[facility]ATORYCLIA [id number] [address] [place] Creatinine [Mass/Vol] 0.67 mg/dL Low 0.73-1.22 [facility] Comment on above: Order Comment: Speci men Type: BLOOD SPECIMENOrdering Facility: [facility] Address: [address] [place] [address] Performed By: #### 2 777-1, , ####[facility]ATORYCLIA [id number] [address] OF [facility] ESTIMATED GLOMERULAR FILTRATION RATE 101 mL/min/1.73m??? Normal >=60 [facility] Comment on above: Order Comment: Speci men Type: BLOOD SPECIMENOrdering Facility: [facility] Address: [address] [place] [address] Result Comment: Luzmaria mated Glomerular Filtration Rate [...] actual GFR. Performed By: #### 2 777-1, 34886-8, ####[facility]ATORYCLIA [id number] [place] [address] [place] Glucose [Mass/Vol] 125 mg/dL High 74-99 [facility] Comment on above: Order Comment: Shira feldman Type: BLOOD SPECIMENOrdering Facility: [facility] Address: [address] [place] [address] Result Comment: The [place] [employer] [...] 1). Performed By: #### 2 777-1, , ####[facility]ATORYCLIA [id number] [place] [address] [place] Potassium [Moles/Vol] 3.9 mmol/L Normal 3.7-5.1 [facility] Comment on above: Order Comment: Shira feldman Type: BLOOD SPECIMENOrdering Facility: [facility] Address: [address] [place] [address] Performed By: #### 2 777-1, 85310-1, ####[facility]ORYCLIA [id number] [place] [address] [place] Sodium [Moles/Vol] 132 mmol/L Low 136-144 [facility] Comment on above: Order Comment: Speci men Type: BLOOD SPECIMENOrdering Facility: [facility] Address: [address] [place] [address] Performed By: #### 2 777-1, 64179-6, ####[facility]ATORYCLIA [id number] [address] [facility] Urea nitrogen [Mass/Vol] 38 mg/dL High 9-24 [facility] Comment on above: Order Comment: Speci men Type: BLOOD SPECIMENOrdering Facility: [facility] Address: [address] [place] [address] Performed By: #### 2 777-1, 01546-4, ####[facility]ATORYCLIA [id number] [address] [place] [facility] CBC W Auto Differential pane l (Bld)on 07-30-2021 Basophils (Bld) [#/Vol] 0.04 10*3/uL Normal <0.11 [facility] Comment on above: Order Comment: Speci men Type: BLOOD SPECIMENOrdering Facility: [facility] Address: [address] [place] [address] Performed By: #### 5 7021-8 ####[facility]ORYCLIA [id number] [address] [place] Basophils/100 WBC (Bld) 0.4 % Normal [facility] Comment on above: Order Comment: Speci men Type: BLOOD SPECIMENOrdering Facility: [facility] Address: [address] [place] [address] Performed By: #### 5 7021-8 ####[facility]ATORYCLIA [id number] [address] Differential cell count method Nom (Bld) Auto Normal [facility] Comment on above: Order Comment: Speci men Type: BLOOD SPECIMENOrdering Facility: [facility] Address: [address] [place] [address] Performed By: #### 5 7021-8 ####[facility]ATORYCLIA [id number] [address] [place] Eosinophils (Bld) [#/Vol] 0.30 10*3/uL Normal <0.46 [facility] Comment on above: Order Comment: Speci men Type: BLOOD SPECIMENOrdering Facility: [facility] Address: [address] [place] [address] Performed By: #### 5 7021-8 ####[facility]ATORYCLIA [id number] [address] Eosinophils/100 WBC (Bld) 2.7 % Normal [facility] Comment on above: Order Comment: Speci men Type: BLOOD SPECIMENOrdering Facility: [facility] Address: [address] [place] [address] Performed By: #### 5 7021-8 ####[facility]ATORYCLIA [id number] [address] Erythrocyte distribution width (RBC) [Ratio] 17.2 % High 11.5-15.0 [facility] Comment on above: Order Comment: Speci men Type: BLOOD SPECIMENOrdering Facility: [facility] Address: [address] [place] [address] Performed By: #### 5 7021-8 ####[facility]ATORYCLIA [id number] [address] [place] Hematocrit (Bld) [Volume fraction] 30.8 % Low 39.0-51.0 [facility] Comment on above: Order Comment: Speci men Type: BLOOD SPECIMENOrdering Facility: [facility] Address: [address] [place] [address] Performed By: #### 5 7021-8 ####[facility]ATORYCLIA [id number] [address] [place] Hemoglobin (Bld) [Mass/Vol] 9.4 g/dL Low 13.0-17.0 [facility] Comment on above: Order Comment: Speci men Type: BLOOD SPECIMENOrdering Facility: [facility] Address: [address] [place] [address] Performed By: #### 5 7021-8 ####[facility]ATORYCLIA [id number] [address] IMMATURE GRAN % 0.5 % Normal [facility] Comment on above: Order Comment: Speci men Type: BLOOD SPECIMENOrdering Facility: [facility] Address: [address] [place] [address] Performed By: #### 5 7021-8 ####[facility]ATORYCLIA [id number] [address] IMMATURE GRAN ABS 0.06 k/uL Normal <0.10 [facility] Comment on above: Order Comment: Speci men Type: BLOOD SPECIMENOrdering Facility: [facility] Address: [address] [place] [address] Performed By: #### 5 7021-8 ####[facility]ORYCLIA [id number] [address] Lymphocytes (Bld) [#/Vol] 1.68 10*3/uL Normal 1.00-4.00 [facility] Comment on above: Order Comment: Speci men Type: BLOOD SPECIMENOrdering Facility: [facility] Address: [address] [place] [address] Performed By: #### 5 7021-8 ####[facility]ATORYCLIA [id number] [address] Lymphocytes/100 WBC (Bld) 15.3 % Normal [facility] Comment on above: Order Comment: Speci men Type: BLOOD SPECIMENOrdering Facility: [facility] Address: [address] [place] [address] Performed By: #### 5 7021-8 ####[facility]ATORYCLIA [id number] [address] MCH (RBC) [Entitic mass] 28.0 pg Normal 26.0-34.0 [facility] Comment on above: Order Comment: Speci men Type: BLOOD SPECIMENOrdering Facility: [facility] Address: [address] [place] [address] Performed By: #### 5 7021-8 ####[facility]ATORYCLIA [id number] [address] [place] [facility] MCHC (RBC) [Mass/Vol] 30.5 g/dL Normal 30.5-36.0 [facility] Comment on above: Order Comment: Speci men Type: BLOOD SPECIMENOrdering Facility: [facility] Address: [address] [place] [address] Performed By: #### 5 7021-8 ####[facility]ATORYCLIA [id number] [address] [place] [facility] MCV (RBC) [Entitic vol] 91.7 fL Normal 80.0-100.0 [facility] Comment on above: Order Comment: Speci men Type: BLOOD SPECIMENOrdering Facility: [facility] Address: [address] [place] [address] Performed By: #### 5 7021-8 ####[facility]ATORYCLIA [id number] [address] Monocytes (Bld) [#/Vol] 0.53 10*3/uL Normal <0.87 [facility] Comment on above: Order Comment: Speci men Type: BLOOD SPECIMENOrdering Facility: [facility] Address: [address] [place] [address] Performed By: #### 5 7021-8 ####[facility]ATORYCLIA [id number] [address] Monocytes/100 WBC (Bld) 4.8 % Normal [facility] Comment on above: Order Comment: Speci men Type: BLOOD SPECIMENOrdering Facility: [facility] Address: [address] [place] [address] Performed By: #### 5 7021-8 ####[facility]ATORYCLIA [id number] [place] [address] [place] Neutrophils (Bld) [#/Vol] 8.39 10*3/uL High 1.45-7.50 [facility] Comment on above: Order Comment: Speci men Type: BLOOD SPECIMENOrdering Facility: [facility] Address: [address] [place] [address] Performed By: #### 5 7021-8 ####[facility]ATORYCLIA [id number] [address] [place] Neutrophils/100 WBC (Bld) 76.3 % Normal [facility] Comment on above: Order Comment: Speci men Type: BLOOD SPECIMENOrdering Facility: [facility] Address: [address] [place] [address] Performed By: #### 5 7021-8 ####[facility]ATORYCLIA [id number] [address] [place] [facility] Nucleated RBC (Bld) [#/Vol] 10*3/uL Normal <0.01 [facility] Comment on above: Order Comment: Speci men Type: BLOOD SPECIMENOrdering Facility: [facility] Address: [address] [place] [address] Performed By: #### 5 7021-8 ####[facility]ORYCLIA [id number] [address] [place] Nucleated RBC/100 WBC (Bld) [Ratio] 0.0 /100 WBC Normal [facility] Comment on above: Order Comment: Speci men Type: BLOOD SPECIMENOrdering Facility: [facility] Address: [address] [place] [address] Performed By: #### 5 7021-8 ####[facility]ORYCLIA [id number] [address] [place] Platelet mean volume (Bld) [Entitic vol] 10.9 fL Normal 9.0-12.7 [facility] Comment on above: Order Comment: Speci men Type: BLOOD SPECIMENOrdering Facility: [facility] Address: [address] [place], [place] [address] Performed By: #### 5 7021-8 ####[facility]ORYCLIA [id number] [address] Platelets (Bld) [#/Vol] 287 10*3/uL Normal 150-400 [facility] Comment on above: Order Comment: Speci men Type: BLOOD SPECIMENOrdering Facility: [facility] Address: [address] [place] [address] Performed By: #### 5 7021-8 ####[facility]ORYCLIA [id number] [address] RBC (Bld) [#/Vol] 3.36 10*6/uL Low 4.20-6.00 [facility] Comment on above: Order Comment: Speci men Type: BLOOD SPECIMENOrdering Facility: [facility] Address: [address] [place] [address] Performed By: #### 5 7021-8 ####[facility]ORYCLIA [id number] [address] WBC (Bld) [#/Vol] 11.00 10*3/uL Normal 3.70-11.00 [facility] Comment on above: Order Comment: Speci men Type: BLOOD SPECIMENOrdering Facility: [facility] Address: [address] [place] [address] Performed By: #### 5 7021-8 ####[facility]ORYCLIA [id number] [address] CSF MANUAL DIFFon 07-30-2021 DIF TTL, CSF 100 cells counted Normal [facility] Comment on above: Order Comment: Speci men Type: CEREBROSPINAL FLUIDOrdering Facility: [facility] Address: [address] [place] [address] Performed By: #### L [id number], JPV6766, 61048-7 ####[facility]ATORYCLIA [id number] [place] [address] [place] EOSIN%, CSF 0 % Normal [facility] Comment on above: Order Comment: Speci men Type: CEREBROSPINAL FLUIDOrdering Facility: [facility] Address: [address] [place] [address] Performed By: #### L [id number], FCU2330, 20084-6 ####[facility]ATORYCLIA [id number] [place] [address] [place] LYMPH%, CSF 75 % Normal 50-90 [facility] Comment on above: Order Comment: Speci men Type: CEREBROSPINAL FLUIDOrdering Facility: [facility] Address: [address] [place] [address] Performed By: #### L [id number], IKW0309, 07500-2 ####[facility]ATORYCLIA [id number] [place] [address] [place] MACRO%, CSF 9 % High <1 [facility] Comment on above: Order Comment: Speci men Type: CEREBROSPINAL FLUIDOrdering Facility: [facility] Address: [address] [place] [address] Performed By: #### L [id number], RCR6251, 32823-8 ####[facility]ATORYCLIA [id number] [place] [address] [place] MONO%, CSF 10 % Normal 10-50 [facility] Comment on above: Order Comment: Speci men Type: CEREBROSPINAL FLUIDOrdering Facility: [facility] Address: [address] [place] [address] Performed By: #### L MA2430, MEX9381, 28551-4 ####[facility]ATORYCLIA [id number] [address] [place] OTHER CL%, CSF 4 % Normal [facility] Comment on above: Order Comment: Speci men Type: CEREBROSPINAL FLUIDOrdering Facility: [facility] Address: [address] [place] [address] Result Comment: Path review to follow. Performed By: #### L [id number], UWS4175, 27132-9 ####[facility]ATORYCLIA [id number] [address] [place] REAC LYMPH %, CSF 2 % Normal [facility] Comment on above: Order Comment: Speci men Type: CEREBROSPINAL FLUIDOrdering Facility: [facility] Address: [address] [place] [address] Performed By: #### L [id number], FOY2353, 41732-1 ####[facility]ATORYCLIA [id number] [address] [place] CSF PATHOLOGIST INTERP (LAB REFLEX ORDER-NO BILL)on 07-30-2021 CSF STAFF REVIEW Negative Normal [facility] Comment on above: Order Comment: Speci men Type: CEREBROSPINAL FLUIDOrdering Facility: [facility] Address: [address] [place] [address] Performed By: #### L [id number], CLB0716, 73328-9 ####[facility]ORYCLIA [id number] [address] Pathologist name Reviewed by Eloise rebolledo MD Normal [facility] Comment on above: Order Comment: Speci men Type: CEREBROSPINAL FLUIDOrdering Facility: [facility] Address: [address] [place] [address] Performed By: #### L CO2129, XJK3037, 63515-9 ####[facility]ATORYCLIA [id number] [address] [place] CT BRAIN WO IVCONon 07-31-[address] BRAIN WO IVCON Normal [facility] Cell count panel (CSF)on Clarity (CSF) Clear Normal Clear [facility] Comment on above: Order Comment: Speci men Type: CEREBROSPINAL FLUIDOrdering Facility: [facility] Address: [address] [place] [address] Performed By: #### L LT1540, GVS4497, 95689-8 ####[facility]ATORYCLIA [id number] [address] Clarity (Unsp spec) Clear Normal Clear [facility] Comment on above: Order Comment: Speci men Type: CEREBROSPINAL FLUIDOrdering Facility: [facility] Address: [address] [place] [address] Performed By: #### L RP6061, GPN3834, 18098-2 ####[facility]ORYCLIA [id number] [address] Color (CSF) Colorless Normal Colorless [facility] Comment on above: Order Comment: Speci men Type: CEREBROSPINAL FLUIDOrdering Facility: [facility] Address: [address] [place] [address] Performed By: #### L MV1442, HUA1694, 90875-0 ####[facility]ORYCLIA [id number] [address] Color (Spun CSF) Colorless Normal Colorless [facility] Comment on above: Order Comment: Speci men Type: CEREBROSPINAL FLUIDOrdering Facility: [facility] Address: [address] [place], [place] [address] Performed By: #### L [id number], HFQ5808, 23968-0 ####[facility]ORYCLIA [id number] [address] CSF TUBE NUMBER [employer] Normal [facility] Comment on above: Order Comment: Speci men Type: CEREBROSPINAL FLUIDOrdering Facility: [facility] Address: [address] [place], [place] [address] Performed By: #### L OH0560, PHE6201, 56940-7 ####[facility]ORYCLIA [id number] [address] RBC Manual cnt (CSF) [#/Vol] 9 cells/uL High 0-5 [facility] Comment on above: Order Comment: Speci men Type: CEREBROSPINAL FLUIDOrdering Facility: [facility] Address: [address] [place], [place] [address] Performed By: #### L TL2473, GKA2812, 47659-7 ####[facility]ORYCLIA [id number] [place] [address] [place] WBC Manual cnt (CSF) [#/Vol] 8 cells/uL High 0-5 [facility] Comment on above: Order Comment: Speci men Type: CEREBROSPINAL FLUIDOrdering Facility: [facility] Address: [address] [place] [address] Performed By: #### L JC5618, HSH8752, 18846-2 ####[facility]ATORYCLIA [id number] [address] [place] [facility] Glucose CSF-mCncon Glucose (CSF) [Mass/Vol] 65 mg/dL Normal 40-70 [facility] Comment on above: Order Comment: Speci men Type: CEREBROSPINAL FLUIDOrdering Facility: [facility] Address: [address] [place] [address] Result Comment: Lumb ar CSF glucose values of healthy patients are approximately 60% of the plasma values and must always be compared with a concurrently measured plasma value for adequate clinical interpretation.References: 1. Glucose HK (GLUC3) [package insert V 12.0 Fijian]. [employer], [place], [place]. September 2015. 2. Michelle Moore, Loki, H. (2015). Chapter 7: Glucose and Lactate. Marianela Alcocer al.(eds.), Cerebrospinal Fluid in Clinical Neurology. [place]: [employer]. Performed By: #### 2 342-4, 2880-3 ####[facility]ATORYCLIA [id number] [address] [place] Magnesium SerPl-ncon 07-30 Magnesium [Mass/Vol] 2.5 mg/dL High 1.7-2.3 [facility] Comment on above: Order Comment: Speci men Type: BLOOD SPECIMENOrdering Facility: [facility] Address: [address] [place] [address] Performed By: #### 2 777-1, 30206-5, 98835-4 ####[facility]ORYCLIA [id number] [address] NURSING PROGon 07-30-2021 NURSING PROG Normal [facility] Phosphate SerPl-mCncon 07-30 Phosphate [Mass/Vol] 2.4 mg/dL Low 2.7-4.8 [facility] Comment on above: Order Comment: Speci men Type: BLOOD SPECIMENOrdering Facility: [facility] Address: [address] [place] [address] Performed By: #### 2 777-1, 98020-4, 29840-5 ####[facility]ORYCLIA [id number] [address] Prot CSF-mCncon 07-30-2021 Protein (CSF) [Mass/Vol] 50 mg/dL High 15-45 [facility] Comment on above: Order Comment: Speci men Type: CEREBROSPINAL FLUIDOrdering Facility: [facility] Address: [address] [place] [address] Performed By: #### 2 342-4, 2880-3 ####[facility]ATORYCLIA [id number] [address] aPTT PPPon 07-30-2021 aPTT Coag (PPP) [Time] 64.1 s High 23.0-32.4 [facility] Comment on above: Order Comment: Speci men Type: BLOOD SPECIMENOrdering Facility: [facility] Address: [address] [place] [address] Performed By: #### 1 4979-9 ####[facility]ATORYCLIA [id number] [address] [place] Bacteria CSF Culton 07-30-19 22 Bacteria identified Cx Nom (CSF) CULTURE, CSF: No growth 14 days GRAM STAIN: No cells or organisms seen Gram stain performed on cytospun specimen. Gram stain confirmed by microbiology Normal [facility] Comment on above: Performed By: #### 6 06-4 ####[facility]ATORYCLIA [id number] [address] [place] CASE MANAGEMon 07-29-2021 CASE MANAGEM Normal [facility] CBC W Auto Differential pane l (Bld)on 07-29-2021 Basophils (Bld) [#/Vol] 0.03 10*3/uL Normal <0.11 [facility] Comment on above: Order Comment: Speci men Type: BLOOD SPECIMENOrdering Facility: [facility] Address: [address] [place] [address] Performed By: #### 5 7021-8 ####[facility]ATORYCLIA [id number] [address] Basophils/100 WBC (Bld) 0.3 % Normal [facility] Comment on above: Order Comment: Speci men Type: BLOOD SPECIMENOrdering Facility: [facility] Address: [address] [place] [address] Performed By: #### 5 7021-8 ####[facility]ORYCLIA [id number] [address] Differential cell count method Nom (Bld) Auto Normal [facility] Comment on above: Order Comment: Speci men Type: BLOOD SPECIMENOrdering Facility: [facility] Address: [address] [place] [address] Performed By: #### 5 7021-8 ####[facility]ORYCLIA [id number] [address] [place] Eosinophils (Bld) [#/Vol] 0.40 10*3/uL Normal <0.46 [facility] Comment on above: Order Comment: Speci men Type: BLOOD SPECIMENOrdering Facility: [facility] Address: [address] [place] [address] Performed By: #### 5 7021-8 ####[facility]ATORYCLIA [id number] [address] Eosinophils/100 WBC (Bld) 3.9 % Normal [facility] Comment on above: Order Comment: Speci men Type: BLOOD SPECIMENOrdering Facility: [facility] Address: [address] [address] Performed By: #### 5 7021-8 ####[facility]ATORYCLIA [id number] [address] Erythrocyte distribution width (RBC) [Ratio] 17.1 % High 11.5-15.0 [facility] Comment on above: Order Comment: Speci men Type: BLOOD SPECIMENOrdering Facility: [facility] Address: [address] [place] [address] Performed By: #### 5 7021-8 ####[facility]ATORYCLIA [id number] [address] Hematocrit (Bld) [Volume fraction] 32.0 % Low 39.0-51.0 [facility] Comment on above: Order Comment: Speci men Type: BLOOD SPECIMENOrdering Facility: [facility] Address: [address] [place] [address] Performed By: #### 5 7021-8 ####[facility]ATORYCLIA [id number] [address] Hemoglobin (Bld) [Mass/Vol] 9.7 g/dL Low 13.0-17.0 [facility] Comment on above: Order Comment: Speci men Type: BLOOD SPECIMENOrdering Facility: [facility] Address: [address] [place] [address] Performed By: #### 5 7021-8 ####[facility]ATORYCLIA [id number] [address] IMMATURE GRAN % 0.6 % Normal [facility] Comment on above: Order Comment: Speci men Type: BLOOD SPECIMENOrdering Facility: [facility] Address: [address] [place] [address] Performed By: #### 5 7021-8 ####[facility]ATORYCLIA [id number] [address] IMMATURE GRAN ABS 0.06 k/uL Normal <0.10 [facility] Comment on above: Order Comment: Speci men Type: BLOOD SPECIMENOrdering Facility: [facility] Address: [address] [place] [address] Performed By: #### 5 7021-8 ####[facility]ATORYCLIA [id number] [address] Lymphocytes (Bld) [#/Vol] 1.96 10*3/uL Normal 1.00-4.00 [facility] Comment on above: Order Comment: Speci men Type: BLOOD SPECIMENOrdering Facility: [facility] Address: [address] [place] [address] Performed By: #### 5 7021-8 ####[facility]ATORYCLIA [id number] [address] Lymphocytes/100 WBC (Bld) 19.0 % Normal [facility] Comment on above: Order Comment: Speci men Type: BLOOD SPECIMENOrdering Facility: [facility] Address: [address] [place] [address] Performed By: #### 5 7021-8 ####[facility]ATORYCLIA [id number] [address] [place] MCH (RBC) [Entitic mass] 28.0 pg Normal 26.0-34.0 [facility] Comment on above: Order Comment: Speci men Type: BLOOD SPECIMENOrdering Facility: [facility] Address: [address] [place] [address] Performed By: #### 5 7021-8 ####[facility]ATORYCLIA [id number] [address] [place] MCHC (RBC) [Mass/Vol] 30.3 g/dL Low 30.5-36.0 [facility] Comment on above: Order Comment: Speci men Type: BLOOD SPECIMENOrdering Facility: [facility] Address: [address] [place] [address] Performed By: #### 5 7021-8 ####[facility]ATORYCLIA [id number] [address] [place] MCV (RBC) [Entitic vol] 92.5 fL Normal 80.0-100.0 [facility] Comment on above: Order Comment: Speci men Type: BLOOD SPECIMENOrdering Facility: [facility] Address: [facility] [place] [address] Performed By: #### 5 7021-8 ####[facility]ATORYCLIA [id number] [place] [address] [place] Monocytes (Bld) [#/Vol] 0.53 10*3/uL Normal <0.87 [facility] Comment on above: Order Comment: Speci men Type: BLOOD SPECIMENOrdering Facility: [facility] Address: [address] [place] [address] Performed By: #### 5 7021-8 ####[facility]ATORYCLIA [id number] [address] Monocytes/100 WBC (Bld) 5.2 % Normal [facility] Comment on above: Order Comment: Speci men Type: BLOOD SPECIMENOrdering Facility: [facility] Address: [address] [place] [address] Performed By: #### 5 7021-8 ####[facility]ATORYCLIA [id number] [place] [address] [place] Neutrophils (Bld) [#/Vol] 7.31 10*3/uL Normal 1.45-7.50 [facility] Comment on above: Order Comment: Speci men Type: BLOOD SPECIMENOrdering Facility: [facility] Address: [address] [place] [address] Performed By: #### 5 7021-8 ####[facility]ATORYCLIA [id number] [address] [place] Neutrophils/100 WBC (Bld) 71.0 % Normal [facility] Comment on above: Order Comment: Speci men Type: BLOOD SPECIMENOrdering Facility: [facility] Address: [address] [place] [address] Performed By: #### 5 7021-8 ####[facility]ATORYCLIA [id number] [address] [place] Nucleated RBC (Bld) [#/Vol] 10*3/uL Normal <0.01 [facility] Comment on above: Order Comment: Speci men Type: BLOOD SPECIMENOrdering Facility: [facility] Address: [address] [place] [address] Performed By: #### 5 7021-8 ####[facility]ORYCLIA [id number] [address] [place] Nucleated RBC/100 WBC (Bld) [Ratio] 0.0 /100 WBC Normal [facility] Comment on above: Order Comment: Speci men Type: BLOOD SPECIMENOrdering Facility: [facility] Address: [address] [place] [address] Performed By: #### 5 7021-8 ####[facility]ATORYCLIA [id number] [address] Platelet mean volume (Bld) [Entitic vol] 11.2 fL Normal 9.0-12.7 [facility] Comment on above: Order Comment: Speci men Type: BLOOD SPECIMENOrdering Facility: [facility] Address: [address] [place] [address] Performed By: #### 5 7021-8 ####[facility]ATORYCLIA [id number] [address] [place] Platelets (Bld) [#/Vol] 276 10*3/uL Normal 150-400 [facility] Comment on above: Order Comment: Speci men Type: BLOOD SPECIMENOrdering Facility: [facility] Address: [address] [place] [address] Performed By: #### 5 7021-8 ####[facility]ORYCLIA [id number] [address] [place] RBC (Bld) [#/Vol] 3.46 10*6/uL Low 4.20-6.00 [facility] Comment on above: Order Comment: Speci men Type: BLOOD SPECIMENOrdering Facility: [facility] Address: [address] [place] [address] Performed By: #### 5 7021-8 ####[facility]ATORYCLIA [id number] [address] [place] [facility] WBC (Bld) [#/Vol] 10.29 10*3/uL Normal 3.70-11.00 [facility] Comment on above: Order Comment: Speci men Type: BLOOD SPECIMENOrdering Facility: [facility] Address: [address] [place] [address] Performed By: #### 5 7021-8 ####[facility]ATORYCLIA [id number] [address] NURSING PROGon 07-29-2021 NURSING PROG Normal [facility] THERAPY NTon 07-29-2021 THERAPY NT Normal [facility] aPTT PPPon 07-29-2021 aPTT Coag (PPP) [Time] 59.2 s High 23.0-32.4 [facility] Comment on above: Order Comment: Speci men Type: BLOOD SPECIMENOrdering Facility: [facility] Address: [address] [place] [address] Performed By: #### 1 4979-9 ####[facility]ATORYCLIA [id number] [address] [place] ALLIED HEALTHon 07-28-2021 ALLIED HEALTH Normal [facility] Basic metabolic 2000 panelon 07-28-2021 Anion gap [Moles/Vol] 7 mmol/L Low 9-18 [facility] Comment on above: Order Comment: Speci men Type: BLOOD SPECIMENOrdering Facility: [facility] Address: [address] [place] [address] Performed By: #### 1 4338-8, 39328-5, 2777-1, 26696-0 ####[facility]ATORYCLIA [id number] [address] [place] [facility] Calcium [Mass/Vol] 9.0 mg/dL Normal 8.5-10.2 [facility] Comment on above: Order Comment: Speci men Type: BLOOD SPECIMENOrdering Facility: [facility] Address: [address] [place] [address] Performed By: #### 1 4338-8, 13860-2, 2777-1, 48549-3 ####[facility]ATORYCLIA [id number] [place] [address] [place] Chloride [Moles/Vol] 94 mmol/L Low 97-105 [facility] Comment on above: Order Comment: Speci men Type: BLOOD SPECIMENOrdering Facility: [facility] Address: [address] [place] [address] Performed By: #### 1 4338-8, 10332-9, 2777-1, 08636-8 ####[facility]ATORYCLIA [id number] [address] [place] [facility] CO2 [Moles/Vol] 31 mmol/L High 22-30 [facility] Comment on above: Order Comment: Speci men Type: BLOOD SPECIMENOrdering Facility: [facility] Address: [address] [place] [address] Performed By: #### 1 4338-8, 19671-7, 2777-1, 54662-3 ####[facility]ATORYCLIA [id number] [place] [address] [place] Creatinine [Mass/Vol] 0.75 mg/dL Normal 0.73-1.22 [facility] Comment on above: Order Comment: Speci men Type: BLOOD SPECIMENOrdering Facility: [facility] Address: [address] [place] [address] Performed By: #### 1 4338-8, 60430-7, 2777-1, 77012-6 ####[facility]ATORYCLIA [id number] [address] [place] [facility] ESTIMATED GLOMERULAR FILTRATION RATE 98 mL/min/1.73m??? Normal >=60 [facility] Comment on above: Order Comment: Shira feldman Type: BLOOD SPECIMENOrdering Facility: [facility] Address: [address] [place], [place] [address] Result Comment: Luzmaria mated Glomerular Filtration Rate [...] actual GFR. Performed By: #### 1 4338-8, 80807-7, 2777-1, 64270-4 ####[facility]ITALCLIA [id number] [place] [address] [place] Glucose [Mass/Vol] 122 mg/dL High 74-99 [facility] Comment on above: Order Comment: Shira feldman Type: BLOOD SPECIMENOrdering Facility: [facility] Address: [address] [place] [address] Result Comment: [employer] [place] [employer] [...] 2016.39(Suppl 1). Performed By: #### 1 4338-8, 97619-9, 2777-1, 54503-4 ####[facility]ITALCLIA [id number] [place] [id number] [place] Potassium [Moles/Vol] 4.0 mmol/L Normal 3.7-5.1 [facility] Comment on above: Order Comment: Shira men Type: BLOOD SPECIMENOrdering Facility: [facility] Address: [address] [place] [address] Performed By: #### 1 4338-8, 65435-4, 2777-, 29291-0 ####[facility]ATORYCLIA [id number] [address] [place] [facility] Sodium [Moles/Vol] 132 mmol/L Low 136-144 [facility] Comment on above: Order Comment: Speci men Type: BLOOD SPECIMENOrdering Facility: [facility] Address: [address] [place] [address] Performed By: #### 1 4338-8, , 2777-, 16111-4 ####[facility]ORYCLIA [id number] [address] [place] Urea nitrogen [Mass/Vol] 34 mg/dL High 01-28 [facility] Comment on above: Order Comment: Speci men Type: BLOOD SPECIMENOrdering Facility: [facility] Address: [address] [place] [address] Performed By: #### 1 4338-8, 45547-9, 2777-, 56094-3 ####[facility]ORYCLIA [id number] [address] [place] CBC W Auto Differential pane l (Bld)on 07-28-2021 Basophils (Bld) [#/Vol] 0.04 10*3/uL Normal <0.11 [facility] Comment on above: Order Comment: Speci men Type: BLOOD SPECIMENOrdering Facility: [facility] Address: [address] [place] [address] Performed By: #### 5 7021-8 ####[facility]ORYCLIA [id number] [address] [place] [facility] Basophils/100 WBC (Bld) 0.5 % Normal [facility] Comment on above: Order Comment: Speci men Type: BLOOD SPECIMENOrdering Facility: [facility] Address: [address] [place] [address] Performed By: #### 5 7021-8 ####[facility]ORYCLIA [id number] [address] Differential cell count method Nom (Bld) Auto Normal [facility] Comment on above: Order Comment: Speci men Type: BLOOD SPECIMENOrdering Facility: [facility] Address: [address] [place] [address] Performed By: #### 5 7021-8 ####[facility]ORYCLIA [id number] [address] Eosinophils (Bld) [#/Vol] 0.30 10*3/uL Normal <0.46 [facility] Comment on above: Order Comment: Speci men Type: BLOOD SPECIMENOrdering Facility: [facility] Address: [address] [place] [address] Performed By: #### 5 7021-8 ####[facility]ORYCLIA [id number] [address] Eosinophils/100 WBC (Bld) 3.4 % Normal [facility] Comment on above: Order Comment: Speci men Type: BLOOD SPECIMENOrdering Facility: [facility] Address: [address] [place] [address] Performed By: #### 5 7021-8 ####[facility]ATORYCLIA [id number] [address] Erythrocyte distribution width (RBC) [Ratio] 16.9 % High 11.5-15.0 [facility] Comment on above: Order Comment: Speci men Type: BLOOD SPECIMENOrdering Facility: [facility] Address: [address] [place] [address] Performed By: #### 5 7021-8 ####[facility]ATORYCLIA [id number] [address] Hematocrit (Bld) [Volume fraction] 30.3 % Low 39.0-51.0 [facility] Comment on above: Order Comment: Speci men Type: BLOOD SPECIMENOrdering Facility: [facility] Address: [address] [place] [address] Performed By: #### 5 7021-8 ####[facility]ATORYCLIA [id number] [address] Hemoglobin (Bld) [Mass/Vol] 9.2 g/dL Low 13.0-17.0 [facility] Comment on above: Order Comment: Speci men Type: BLOOD SPECIMENOrdering Facility: [facility] Address: [address] [place] [address] Performed By: #### 5 7021-8 ####[facility]ATORYCLIA [id number] [address] IMMATURE GRAN % 0.6 % Normal [facility] Comment on above: Order Comment: Speci men Type: BLOOD SPECIMENOrdering Facility: [facility] Address: [address] [place] [address] Performed By: #### 5 7021-8 ####[facility]ATORYCLIA [id number] [address] IMMATURE GRAN ABS 0.05 k/uL Normal <0.10 [facility] Comment on above: Order Comment: Speci men Type: BLOOD SPECIMENOrdering Facility: [facility] Address: [address] [place] [address] Performed By: #### 5 7021-8 ####[facility]ATORYCLIA [id number] [address] Lymphocytes (Bld) [#/Vol] 1.68 10*3/uL Normal 1.00-4.00 [facility] Comment on above: Order Comment: Speci men Type: BLOOD SPECIMENOrdering Facility: [facility] Address: [address] [place] [address] Performed By: #### 5 7021-8 ####[facility]ATORYCLIA [id number] [address] Lymphocytes/100 WBC (Bld) 19.2 % Normal [facility] Comment on above: Order Comment: Speci men Type: BLOOD SPECIMENOrdering Facility: [facility] Address: [address] [place] [address] Performed By: #### 5 7021-8 ####[facility]ATORYCLIA [id number] [address] MCH (RBC) [Entitic mass] 28.4 pg Normal 26.0-34.0 [facility] Comment on above: Order Comment: Speci men Type: BLOOD SPECIMENOrdering Facility: [facility] Address: [address] [place] [address] Performed By: #### 5 7021-8 ####[facility]ATORYCLIA [id number] [address] MCHC (RBC) [Mass/Vol] 30.4 g/dL Low 30.5-36.0 [facility] Comment on above: Order Comment: Speci men Type: BLOOD SPECIMENOrdering Facility: [facility] Address: [address] [place] [address] Performed By: #### 5 7021-8 ####[facility]ATORYCLIA [id number] [address] MCV (RBC) [Entitic vol] 93.5 fL Normal 80.0-100.0 [facility] Comment on above: Order Comment: Speci men Type: BLOOD SPECIMENOrdering Facility: [facility] Address: [address] [place] [address] Performed By: #### 5 7021-8 ####[facility]ATORYCLIA [id number] [address] Monocytes (Bld) [#/Vol] 0.58 10*3/uL Normal <0.87 [facility] Comment on above: Order Comment: Speci men Type: BLOOD SPECIMENOrdering Facility: [facility] Address: [address] [place] [address] Performed By: #### 5 7021-8 ####[facility]ITALCLIA [id number] [address] [place] Monocytes/100 WBC (Bld) 6.6 % Normal [facility] Comment on above: Order Comment: Speci men Type: BLOOD SPECIMENOrdering Facility: [facility] Address: [address] [place] [address] Performed By: #### 5 7021-8 ####[facility]ORATORYCLIA [id number] [place] [address] [place] Neutrophils (Bld) [#/Vol] 6.11 10*3/uL Normal 1.45-7.50 [facility] Comment on above: Order Comment: Speci men Type: BLOOD SPECIMENOrdering Facility: [facility] Address: [address] [place] [address] Performed By: #### 5 7021-8 ####[facility]ORYCLIA [id number] [address] Neutrophils/100 WBC (Bld) 69.7 % Normal [facility] Comment on above: Order Comment: Speci men Type: BLOOD SPECIMENOrdering Facility: [facility] Address: [address] [place] [address] Performed By: #### 5 7021-8 ####[facility] LABORATORYCLIA [id number] [address] [place] Nucleated RBC (Bld) [#/Vol] 10*3/uL Normal <0.01 [facility] Comment on above: Order Comment: Speci men Type: BLOOD SPECIMENOrdering Facility: [facility] Address: [address] [place] [address] Performed By: #### 5 7021-8 ####[facility]ATORYCLIA [id number] [address] [place] Nucleated RBC/100 WBC (Bld) [Ratio] 0.0 /100 WBC Normal [facility] Comment on above: Order Comment: Speci men Type: BLOOD SPECIMENOrdering Facility: [facility] Address: [address] Performed By: #### 5 7021-8 ####[facility]ATORYCLIA [id number] [address] [place] [facility] Platelet mean volume (Bld) [Entitic vol] 11.3 fL Normal 9.0-12.7 [facility] Comment on above: Order Comment: Speci men Type: BLOOD SPECIMENOrdering Facility: [facility] Address: [address] [place] [address] Performed By: #### 5 7021-8 ####[facility]ATORYCLIA [id number] [place] [address] [place] Platelets (Bld) [#/Vol] 238 10*3/uL Normal 150-400 [facility] Comment on above: Order Comment: Speci men Type: BLOOD SPECIMENOrdering Facility: [facility] Address: [address] [place] [address] Performed By: #### 5 7021-8 ####[facility]ATORYCLIA [id number] [address] [place] RBC (Bld) [#/Vol] 3.24 10*6/uL Low 4.20-6.00 [facility] Comment on above: Order Comment: Speci men Type: BLOOD SPECIMENOrdering Facility: [facility] Address: [address] [place] [address] Performed By: #### 5 7021-8 ####[facility]ATORYCLIA [id number] [address] [place] WBC (Bld) [#/Vol] 8.76 10*3/uL Normal 3.70-11.00 [facility] Comment on above: Order Comment: Speci men Type: BLOOD SPECIMENOrdering Facility: [facility] Address: [address] [place], [place] [address] Performed By: #### 5 7021-8 ####[facility]ATORYCLIA [id number] [address] [place] MRI BRAIN WO/W IVCONon 07-28 MRI BRAIN WO/W IVCON Normal [facility] Magnesium SerPl-mCncon 07-28 Magnesium [Mass/Vol] 2.5 mg/dL High 1.7-2.3 [facility] Comment on above: Order Comment: Speci men Type: BLOOD SPECIMENOrdering Facility: [facility] Address: [address] [place] [address] Performed By: #### 1 4338-8, 85098-2, 277-1, 10044-0 ####[facility]ORYCLIA [id number] [address] OF [facility] NURSING PROGon 07-28-2021 NURSING PROG Normal [facility] NURSING PROG Normal [facility] Phosphate SerPl-mCncon 07-28 Phosphate [Mass/Vol] 2.8 mg/dL Normal 2.7-4.8 [facility] Comment on above: Order Comment: Speci men Type: BLOOD SPECIMENOrdering Facility: [facility] Address: [address] [place] [address] Performed By: #### 1 4338-8, 33215-6, 2776-05, 62931-3 ####[facility]ATORYCLIA [id number] [address] [place] Prealbumin [Mass/Vol]on 07-06 Prealbumin Nephelometry [Mass/Vol] 25 mg/dL Normal 17-36 [facility] Comment on above: Order Comment: Speci men Type: BLOOD SPECIMENOrdering Facility: [facility] Address: [facility] [place] [address] Performed By: #### 1 4338-8, 90292-2, 277-, 18849-6 ####[facility]ATORYCLIA [id number] [address] [place] aPTT PPPon 07-28-2021 aPTT Coag (PPP) [Time] 53.0 s High 23.0-32.4 [facility] Comment on above: Order Comment: Speci men Type: BLOOD SPECIMENOrdering Facility: [facility] Address: [address] [place] [address] Performed By: #### 1 4979-9 ####[facility]ORYCLIA [id number] [address] [place] aPTT Coag (PPP) [Time] 57.2 s High 23.0-32.4 [facility] Comment on above: Order Comment: Speci men Type: BLOOD SPECIMENOrdering Facility: [facility] Address: [address] [place] [address] Performed By: #### 1 4979-9 ####[facility]ORYCLIA [id number] [address] Bacteria CSF Culton 07-28-19 Bacteria identified Cx Nom (CSF) CULTURE, CSF: No growth 14 days GRAM STAIN: No organisms seen Rare Polymorphonuclear leukocytes Rare Red Blood Cells Gram stain performed on cytospun specimen. Normal [facility] Comment on above: Performed By: #### 6 06-4 ####[facility]ORYCLIA [id number] [address] Bacteria Spec Resp Culton Bacteria identified Respiratory culture Nom (Unsp spec) CULTURE, RESPIRATORY: Rare Normal respiratory chris present GRAM STAIN: No organisms seen Rare Polymorphonuclear leukocytes Rare Epithelial cells Normal [facility] Comment on above: Performed By: #### 3 2355-0 ####[facility]ORYCLIA [id number] [address] CASE MANAGEMon 07-27-2021 CASE MANAGEM Normal [facility] CBC W Auto Differential pane l (Bld)on 07-27-2021 Basophils (Bld) [#/Vol] 0.04 10*3/uL Normal <0.11 [facility] Comment on above: Order Comment: Speci men Type: BLOOD SPECIMENOrdering Facility: [facility] Address: [address] [place] [address] Performed By: #### 5 7021-8 ####[facility]CLIA [id number] [address] [place] Basophils/100 WBC (Bld) 0.4 % Normal [facility] Comment on above: Order Comment: Speci men Type: BLOOD SPECIMENOrdering Facility: [facility] Address: [address] [place] [address] Performed By: #### 5 7021-8 ####[facility]ORYCLIA [id number] [address] Differential cell count method Nom (Bld) Auto Normal [facility] Comment on above: Order Comment: Speci men Type: BLOOD SPECIMENOrdering Facility: [facility] Address: [address] [place] [address] Performed By: #### 5 7021-8 ####[facility]ORYCLIA [id number] [address] [place] Eosinophils (Bld) [#/Vol] 0.50 10*3/uL High <0.46 [facility] Comment on above: Order Comment: Speci men Type: BLOOD SPECIMENOrdering Facility: [facility] Address: [address] [place] [address] Performed By: #### 5 7021-8 ####[facility]ORYCLIA [id number] [address] [place] Eosinophils/100 WBC (Bld) 5.2 % Normal [facility] Comment on above: Order Comment: Speci men Type: BLOOD SPECIMENOrdering Facility: [facility] Address: [address] [place] [address] Performed By: #### 5 7021-8 ####[facility]ORYCL[facility] [id number] [address] Erythrocyte distribution width (RBC) [Ratio] 16.8 % High 11.5-15.0 [facility] Comment on above: Order Comment: Speci men Type: BLOOD SPECIMENOrdering Facility: [facility] Address: [address] [place] [address] Performed By: #### 5 7021-8 ####[facility]ORYCL[facility] [id number] [address] Hematocrit (Bld) [Volume fraction] 29.8 % Low 39.0-51.0 [facility] Comment on above: Order Comment: Speci men Type: BLOOD SPECIMENOrdering Facility: [facility] Address: [address] [place] [address] Performed By: #### 5 7021-8 ####[facility]ORYCL[facility] [id number] [address] Hemoglobin (Bld) [Mass/Vol] 9.0 g/dL Low 13.0-17.0 [facility] [facility] Comment on above: Order Comment: Speci men Type: BLOOD SPECIMENOrdering Facility: [facility] Address: [address] [place] [address] Performed By: #### 5 7021-8 ####[facility]ORYCLIA [id number] [address] IMMATURE GRAN % 0.6 % Normal [facility] Comment on above: Order Comment: Speci men Type: BLOOD SPECIMENOrdering Facility: [facility] Address: [address] [place] [address] Performed By: #### 5 7021-8 ####[facility]ORYCLIA [id number] [address] IMMATURE GRAN ABS 0.06 k/uL Normal <0.10 [facility] Comment on above: Order Comment: Speci men Type: BLOOD SPECIMENOrdering Facility: [facility] Address: [address] [place] [address] Performed By: #### 5 7021-8 ####[facility]ORYCLIA [id number] [address] Lymphocytes (Bld) [#/Vol] 1.73 10*3/uL Normal 1.00-4.00 [facility] Comment on above: Order Comment: Speci men Type: BLOOD SPECIMENOrdering Facility: [facility] Address: [address] [place] [address] Performed By: #### 5 7021-8 ####[facility]ORYCLIA [id number] [address] Lymphocytes/100 WBC (Bld) 17.9 % Normal [facility] Comment on above: Order Comment: Speci men Type: BLOOD SPECIMENOrdering Facility: [facility] Address: [address] [place] [address] Performed By: #### 5 7021-8 ####[facility]ORYCLIA [id number] [address] MCH (RBC) [Entitic mass] 28.1 pg Normal 26.0-34.0 [facility] Comment on above: Order Comment: Speci men Type: BLOOD SPECIMENOrdering Facility: [facility] Address: [address] [place] [address] Performed By: #### 5 7021-8 ####[facility]ORYCLIA [id number] [address] [place] [facility] MCHC (RBC) [Mass/Vol] 30.2 g/dL Low 30.5-36.0 [facility] Comment on above: Order Comment: Speci men Type: BLOOD SPECIMENOrdering Facility: [facility] Address: [address] [place] [address] Performed By: #### 5 7021-8 ####[facility]ORYCLIA [id number] [address] [place] [facility] MCV (RBC) [Entitic vol] 93.1 fL Normal 80.0-100.0 [facility] Comment on above: Order Comment: Speci men Type: BLOOD SPECIMENOrdering Facility: [facility] Address: [address] [place] [address] Performed By: #### 5 7021-8 ####[facility]ATORYCLIA [id number] [place] [address] [place] Monocytes (Bld) [#/Vol] 0.59 10*3/uL Normal <0.87 [facility] Comment on above: Order Comment: Speci men Type: BLOOD SPECIMENOrdering Facility: [facility] Address: [address] [address] Performed By: #### 5 7021-8 ####[facility]ORYCLIA [id number] [address] [place] Monocytes/100 WBC (Bld) 6.1 % Normal [facility] Comment on above: Order Comment: Speci men Type: BLOOD SPECIMENOrdering Facility: [facility] Address: [address] [place] [address] Performed By: #### 5 7021-8 ####[facility]ORYCLIA [id number] [address] [place] Neutrophils (Bld) [#/Vol] 6.75 10*3/uL Normal 1.45-7.50 [facility] Comment on above: Order Comment: Speci men Type: BLOOD SPECIMENOrdering Facility: [facility] Address: [address] [place] [address] Performed By: #### 5 7021-8 ####[facility]ORYCLIA [id number] [address] [place] Neutrophils/100 WBC (Bld) 69.8 % Normal [facility] Comment on above: Order Comment: Speci men Type: BLOOD SPECIMENOrdering Facility: [facility] Address: [address] [address] Performed By: #### 5 7021-8 ####[facility]ORATORYCLIA [id number] [place] [address] [place] Nucleated RBC (Bld) [#/Vol] 10*3/uL Normal <0.01 [facility] Comment on above: Order Comment: Speci men Type: BLOOD SPECIMENOrdering Facility: [facility] Address: [address] [place] [address] Performed By: #### 5 7021-8 ####[facility]ORYCLIA [id number] [address] [place] Nucleated RBC/100 WBC (Bld) [Ratio] 0.0 /100 WBC Normal [facility] Comment on above: Order Comment: Speci men Type: BLOOD SPECIMENOrdering Facility: [facility] Address: [address] [place] [address] Performed By: #### 5 7021-8 ####[facility]ORYCLIA [id number] [address] [place] Platelet mean volume (Bld) [Entitic vol] 11.3 fL Normal 9.0-12.7 [facility] Comment on above: Order Comment: Speci men Type: BLOOD SPECIMENOrdering Facility: [facility] Address: [address] [place] [address] Performed By: #### 5 7021-8 ####[facility]ORYCLIA [id number] [address] [place] Platelets (Bld) [#/Vol] 227 10*3/uL Normal 150-400 [facility] Comment on above: Order Comment: Speci men Type: BLOOD SPECIMENOrdering Facility: [facility] Address: [address] [place] [address] Performed By: #### 5 7021-8 ####[facility]ORYCLIA [id number] [address] [place] RBC (Bld) [#/Vol] 3.20 10*6/uL Low 4.20-6.00 [facility] Comment on above: Order Comment: Speci men Type: BLOOD SPECIMENOrdering Facility: [facility] Address: [address] [place] [address] Performed By: #### 5 7021-8 ####[facility]ATORYCLIA [id number] [address] [place] WBC (Bld) [#/Vol] 9.67 10*3/uL Normal 3.70-11.00 [facility] Comment on above: Order Comment: Speci men Type: BLOOD SPECIMENOrdering Facility: [facility] Address: [address] [place] [address] Performed By: #### 5 7021-8 ####[facility]ORYCLIA [id number] [address] [place] CONSULT PROGon 07-27-2021 CONSULT PROG Normal [facility] CSF MANUAL DIFFon 07-27-2021 DIF TTL, CSF 100 cells counted Normal [facility] Comment on above: Order Comment: Speci men Type: CEREBROSPINAL FLUIDOrdering Facility: [facility] Address: [address] [place] [address] Performed By: #### L [id number], 32940-9, [id number] ####[facility]ATORYCLIA [id number] [place] [address] [place] LYMPH%, CSF 75 % Normal 50-90 [facility] Comment on above: Order Comment: Speci men Type: CEREBROSPINAL FLUIDOrdering Facility: [facility] Address: [address] [place] [address] Performed By: #### L [id number], 76136-9, [id number] ####[facility]ATORYCLIA [id number] [place] [address] [place] MONO%, CSF 22 % Normal 10-50 [facility] Comment on above: Order Comment: Speci men Type: CEREBROSPINAL FLUIDOrdering Facility: [facility] Address: [address] [place] [address] Performed By: #### L [id number], 59537-1, [id number] ####[facility]ATORYCLIA [id number] [address] [place] NEUT%, CSF 2 % Normal 0-3 [facility] Comment on above: Order Comment: Speci men Type: CEREBROSPINAL FLUIDOrdering Facility: [facility] Address: [address] [place] [address] Performed By: #### L [id number], 56487-6, [id number] ####[facility]ATORYCLIA [id number] [place] [address] [place] OTHER CL%, CSF 1 % Normal [facility] Comment on above: Order Comment: Speci men Type: CEREBROSPINAL FLUIDOrdering Facility: [facility] Address: [address] [place] [address] Result Comment: Path ologist review of microscopy results to follow Performed By: #### L [id number], 68708-2, [id number] ####[facility]ATORYCLIA [id number] [place] [address] [place] CSF PATHOLOGIST INTERP (LAB REFLEX ORDER-NO BILL)on 07-27-2021 CSF STAFF REVIEW Negative Normal [facility] Comment on above: Order Comment: Speci men Type: CEREBROSPINAL FLUIDOrdering Facility: [facility] Address: [address] [place] [address] Performed By: #### L RD0964, 26786-5, [id number] ####[facility]ORYCLIA [id number] [address] Pathologist name Reviewed by Amador Stevens MD Normal [facility] Comment on above: Order Comment: Speci men Type: CEREBROSPINAL FLUIDOrdering Facility: [facility] Address: [address] [place] [address] Performed By: #### L UP0348, 80772-9, [id number] ####[facility]ATORYCLIA [id number] [address] Cell count panel (CSF)on Clarity (CSF) Clear Normal Clear [facility] Comment on above: Order Comment: Speci men Type: CEREBROSPINAL FLUIDOrdering Facility: [facility] Address: [address] [place] [address] Performed By: #### L [id number], 36085-4, [id number] ####[facility]ATORYCLIA [id number] [address] [place] Clarity (Unsp spec) Not Indicated Normal Clear [facility] Comment on above: Order Comment: Speci men Type: CEREBROSPINAL FLUIDOrdering Facility: [facility] Address: [address] [address] Performed By: #### L [id number], 27657-6, [id number] ####[facility]ATORYCLIA [id number] [address] Color (CSF) Colorless Normal Colorless [facility] Comment on above: Order Comment: Speci men Type: CEREBROSPINAL FLUIDOrdering Facility: [facility] Address: [address] [place] [address] Performed By: #### L [id number], 89220-2, [id number] ####[facility]ORYCLIA [id number] [address] Color (Spun CSF) Not Indicated Normal Colorless [facility] Comment on above: Order Comment: Speci men Type: CEREBROSPINAL FLUIDOrdering Facility: [facility] Address: [address] [place] [address] Performed By: #### L QJ2959, 29356-6, [id number] ####[facility]ORYCLIA [id number] [address] CSF TUBE NUMBER [employer] Normal [facility] Comment on above: Order Comment: Speci men Type: CEREBROSPINAL FLUIDOrdering Facility: [facility] Address: [address] [place] [address] Performed By: #### L [id number], 29599-1, ALN3170 ####[facility]ATORYCLIA [id number] [address] RBC Manual cnt (CSF) [#/Vol] 39 cells/uL High 0-5 [facility] Comment on above: Order Comment: Speci men Type: CEREBROSPINAL FLUIDOrdering Facility: [facility] Address: [address] [place] [address] Performed By: #### L [id number], 16115-7, FHG9596 ####[facility]ORYCLIA [id number] [address] [place] WBC Manual cnt (CSF) [#/Vol] 14 cells/uL High 0-5 [facility] Comment on above: Order Comment: Speci men Type: CEREBROSPINAL FLUIDOrdering Facility: [facility] Address: [address] [place] [address] Performed By: #### L TL1571, 48077-4, TMP9035 ####[facility]ORYCLIA [id number] [place] [address] [place] Glucose CSF-mCncon 2 Glucose (CSF) [Mass/Vol] 64 mg/dL Normal 40-70 [facility] Comment on above: Order Comment: Speci men Type: CEREBROSPINAL FLUIDOrdering Facility: [facility] Address: [address] [place] [address] Result Comment: Lumb ar CSF glucose values of healthy patients are approximately 60% of the plasma values and must always be compared with a concurrently measured plasma value for adequate clinical interpretation.References: 1. Glucose HK (GLUC3) [package insert V 12.0 F[place]ian]. [employer], [place], [place]. September 2015. 2. Michelle Moore, Loki, H. (2015). Chapter 7: Glucose and Lactate. Marianela Alcocer al.(eds.), Cerebrospinal Fluid in Clinical Neurology. [place]: [employer]. Performed By: #### 2 342-4, 2880-3 ####[facility]ATORYCLIA [id number] [place] [address] [place] NUTRITIONon 07-27-2021 NUTRITION Normal [facility] Prot CSF-mCncon 07-27-2021 Protein (CSF) [Mass/Vol] 58 mg/dL High 15-45 [facility] Comment on above: Order Comment: Speci men Type: CEREBROSPINAL FLUIDOrdering Facility: [facility] Address: [address] [place] [address] Performed By: #### 2 342-4, 2880-3 ####[facility]ORYCLIA [id number] [address] [place] aPTT PPPon 07-27-2021 aPTT Coag (PPP) [Time] 68.4 s High 23.0-32.4 [facility] Comment on above: Order Comment: Speci men Type: BLOOD SPECIMENOrdering Facility: [facility] Address: [address] [place] [address] Performed By: #### 1 4979-9 ####[facility]ORYCLIA [id number] [address] aPTT Coag (PPP) [Time] 51.3 s High 23.0-32.4 [facility] Comment on above: Order Comment: Speci men Type: BLOOD SPECIMENOrdering Facility: [facility] Address: [address] [place] [address] Performed By: #### 1 4979-9 ####[facility]ATORYCLIA [id number] [address] ALLIED HEALTHon 07-26-2021 ALLIED HEALTH HNO ID: [id number] Author: Stephanie Maldonado, jd edwards developer Service: Radiology Author Type: Well Puller Type: Allied Health Filed: 07/26/2021 4:10 PM Note Text: Spoke with nurse. Pt getting new EVD today. Try tomorrow. Normal [facility] Bacteria CSF Culton 07-27-19 Bacteria identified Cx Nom (CSF) Abnormal [facility] Comment on above: Performed By: #### 6 06-4 ####[facility]ATORYCLIA [id number] [address] [place] [facility] Basic metabolic 2000 panelon 07-26-2021 Anion gap [Moles/Vol] 6 mmol/L Low 9-18 [facility] Comment on above: Order Comment: Speci men Type: BLOOD SPECIMENOrdering Facility: [facility] Address: [address] [place] [address] Performed By: #### 2 4321-2 ####[facility]ORYCLIA [id number] [address] Calcium [Mass/Vol] 9.2 mg/dL Normal 8.5-10.2 [facility] Comment on above: Order Comment: Speci men Type: BLOOD SPECIMENOrdering Facility: [facility] Address: [address] [place] [address] Performed By: #### 2 4321-2 ####[facility]ATORYCLIA [id number] [place] [address] [place] Chloride [Moles/Vol] 99 mmol/L Normal 97-105 [facility] Comment on above: Order Comment: Speci men Type: BLOOD SPECIMENOrdering Facility: [facility] Address: [address] [place] [address] Performed By: #### 2 4321-2 ####[facility]ORYCLIA [id number] [place] [address] [place] CO2 [Moles/Vol] 32 mmol/L High 22-30 [facility] Comment on above: Order Comment: Speci men Type: BLOOD SPECIMENOrdering Facility: [facility] Address: [address] [place] [address] Performed By: #### 2 4321-2 ####[facility]ORYCLIA [id number] [address] [place] Creatinine [Mass/Vol] 0.74 mg/dL Normal 0.73-1.22 [facility] Comment on above: Order Comment: Speci men Type: BLOOD SPECIMENOrdering Facility: [facility] Address: [address] [place] [address] Performed By: #### 2 4321-2 ####[facility]ATORYCLIA [id number] [address] [place] ESTIMATED GLOMERULAR FILTRATION RATE 98 mL/min/1.73m??? Normal >=60 [facility] Comment on above: Order Comment: Speci men Type: BLOOD SPECIMENOrdering Facility: [facility] Address: [address] [place] [address] Result Comment: Luzmaria mated Glomerular Filtration Rate [...] actual GFR. Performed By: #### 2 4321-2 ####[facility]ATORYCLIA [id number] [place] [address] [place] Glucose [Mass/Vol] 126 mg/dL High 74-99 [facility] Comment on above: Order Comment: Speci men Type: BLOOD SPECIMENOrdering Facility: [facility] Address: [address] [place], [place] [address] Result Comment: The [place] [employer] [...] 2016.39(Suppl 1). Performed By: #### 2 4321-2 ####[facility]ATORYCLIA [id number] [place] [address] [place] Potassium [Moles/Vol] 4.2 mmol/L Normal 3.7-5.1 [facility] Comment on above: Order Comment: Speci men Type: BLOOD SPECIMENOrdering Facility: [facility] Address: [address] [place] [id number] Performed By: #### 2 4321-2 ####[facility]ORYCLIA [id number] [place] [address] [place] Sodium [Moles/Vol] 137 mmol/L Normal 136-144 [facility] Comment on above: Order Comment: Speci men Type: BLOOD SPECIMENOrdering Facility: [facility] Address: [address] [place] [address] Performed By: #### 2 4321-2 ####[facility]ORYCLIA [id number] [address] [place] [facility] Urea nitrogen [Mass/Vol] 36 mg/dL High 9-24 [facility] Comment on above: Order Comment: Speci men Type: BLOOD SPECIMENOrdering Facility: [facility] Address: [address] [place] [address] Performed By: #### 2 4321-2 ####[facility]ORYCLIA [id number] [address] [place] CBC W Auto Differential pane l (Bld)on 07-26-2021 Basophils (Bld) [#/Vol] 0.04 10*3/uL Normal <0.11 [facility] Comment on above: Order Comment: Speci men Type: BLOOD SPECIMENOrdering Facility: [facility] Address: [address] [place] [address] Performed By: #### 5 7021-8 ####[facility]ORYCLIA [id number] [address] [place] Basophils/100 WBC (Bld) 0.4 % Normal [facility] Comment on above: Order Comment: Speci men Type: BLOOD SPECIMENOrdering Facility: [facility] Address: [address] [place] [address] Performed By: #### 5 7021-8 ####[facility]ORYCLIA [id number] [address] [place] [facility] Differential cell count method Nom (Bld) Auto Normal [facility] Comment on above: Order Comment: Speci men Type: BLOOD SPECIMENOrdering Facility: [facility] Address: [address] [place] [address] Performed By: #### 5 7021-8 ####[facility]ATORYCLIA [id number] [place] [address] [place] Eosinophils (Bld) [#/Vol] 0.63 10*3/uL High <0.46 [facility] Comment on above: Order Comment: Speci men Type: BLOOD SPECIMENOrdering Facility: [facility] Address: [address] [place] [address] Performed By: #### 5 7021-8 ####[facility]ORYCLIA [id number] [address] [place] [facility] Eosinophils/100 WBC (Bld) 5.8 % Normal [facility] Comment on above: Order Comment: Speci men Type: BLOOD SPECIMENOrdering Facility: [facility] Address: [address] [place] [address] Performed By: #### 5 7021-8 ####[facility]ORYCLIA [id number] [address] [place] Erythrocyte distribution width (RBC) [Ratio] 16.8 % High 11.5-15.0 [facility] Comment on above: Order Comment: Speci men Type: BLOOD SPECIMENOrdering Facility: [facility] Address: [address] [place] [address] Performed By: #### 5 7021-8 ####[facility]ATORYCLIA [id number] [address] [place] [facility] Hematocrit (Bld) [Volume fraction] 31.2 % Low 39.0-51.0 [facility] Comment on above: Order Comment: Speci men Type: BLOOD SPECIMENOrdering Facility: [facility] Address: [address] [place] [address] Performed By: #### 5 7021-8 ####[facility]ORYCLIA [id number] [address] [place] Hemoglobin (Bld) [Mass/Vol] 9.1 g/dL Low 13.0-17.0 [facility] Comment on above: Order Comment: Speci men Type: BLOOD SPECIMENOrdering Facility: [facility] Address: [address] [place] [address] Performed By: #### 5 7021-8 ####[facility]ATORYCLIA [id number] [address] IMMATURE GRAN % 0.6 % Normal [facility] Comment on above: Order Comment: Speci men Type: BLOOD SPECIMENOrdering Facility: [facility] Address: [address] [place] [address] Performed By: #### 5 7021-8 ####[facility]ORYCLIA [id number] [address] IMMATURE GRAN ABS 0.07 k/uL Normal <0.10 [facility] Comment on above: Order Comment: Speci men Type: BLOOD SPECIMENOrdering Facility: [facility] Address: [address] [place] [address] Performed By: #### 5 7021-8 ####[facility]ORYCLIA [id number] [address] [place] [facility] Lymphocytes (Bld) [#/Vol] 2.16 10*3/uL Normal 1.00-4.00 [facility] Comment on above: Order Comment: Speci men Type: BLOOD SPECIMENOrdering Facility: [facility] Address: [address] [place] [address] Performed By: #### 5 7021-8 ####[facility]ORYCLIA [id number] [address] Lymphocytes/100 WBC (Bld) 20.0 % Normal [facility] Comment on above: Order Comment: Speci men Type: BLOOD SPECIMENOrdering Facility: [facility] Address: [address] [place] [address] Performed By: #### 5 7021-8 ####[facility]ORYCLIA [id number] [address] [place] [facility] MCH (RBC) [Entitic mass] 27.7 pg Normal 26.0-34.0 [facility] Comment on above: Order Comment: Speci men Type: BLOOD SPECIMENOrdering Facility: [facility] Address: [address] [place] [address] Performed By: #### 5 7021-8 ####[facility]ORYCLIA [id number] [address] [place] [facility] MCHC (RBC) [Mass/Vol] 29.2 g/dL Low 30.5-36.0 [facility] Comment on above: Order Comment: Speci men Type: BLOOD SPECIMENOrdering Facility: [facility] Address: [address] [place] [address] Performed By: #### 5 7021-8 ####[facility]ORYCLIA [id number] [address] [place] MCV (RBC) [Entitic vol] 95.1 fL Normal 80.0-100.0 [facility] Comment on above: Order Comment: Speci men Type: BLOOD SPECIMENOrdering Facility: [facility] Address: [address] [place] [address] Performed By: #### 5 7021-8 ####[facility]ORYCLIA [id number] [address] [place] [facility] Monocytes (Bld) [#/Vol] 0.63 10*3/uL Normal <0.87 [facility] Comment on above: Order Comment: Speci men Type: BLOOD SPECIMENOrdering Facility: [facility] Address: [address] [place] [address] Performed By: #### 5 7021-8 ####[facility]ORYCLIA [id number] [address] Monocytes/100 WBC (Bld) 5.8 % Normal [facility] Comment on above: Order Comment: Speci men Type: BLOOD SPECIMENOrdering Facility: [facility] Address: [address] [place] [address] Performed By: #### 5 7021-8 ####[facility]ATORYCLIA [id number] [address] [place] Neutrophils (Bld) [#/Vol] 7.25 10*3/uL Normal 1.45-7.50 [facility] Comment on above: Order Comment: Speci men Type: BLOOD SPECIMENOrdering Facility: [facility] Address: [address] [place] [address] Performed By: #### 5 7021-8 ####[facility]ORATORYCLIA [id number] [address] Neutrophils/100 WBC (Bld) 67.4 % Normal [facility] Comment on above: Order Comment: Speci men Type: BLOOD SPECIMENOrdering Facility: [facility] Address: [address] [place] [address] Performed By: #### 5 7021-8 ####[facility]ATORYCLIA [id number] [address] [place] Nucleated RBC (Bld) [#/Vol] 10*3/uL Normal <0.01 [facility] Comment on above: Order Comment: Speci men Type: BLOOD SPECIMENOrdering Facility: [facility] Address: [address] [place] [address] Performed By: #### 5 7021-8 ####[facility]ATORYCLIA [id number] [address] Nucleated RBC/100 WBC (Bld) [Ratio] 0.0 /100 WBC Normal [facility] Comment on above: Order Comment: Speci men Type: BLOOD SPECIMENOrdering Facility: [facility] Address: [address] [place] [address] Performed By: #### 5 7021-8 ####[facility]ATORYCLIA [id number] [address] [place] Platelet mean volume (Bld) [Entitic vol] 11.2 fL Normal 9.0-12.7 [facility] Comment on above: Order Comment: Speci men Type: BLOOD SPECIMENOrdering Facility: [facility] Address: [address] [place] [address] Performed By: #### 5 7021-8 ####[facility]ATORYCLIA [id number] [address] [place] [facility] Platelets (Bld) [#/Vol] 245 10*3/uL Normal 150-400 [facility] Comment on above: Order Comment: Speci men Type: BLOOD SPECIMENOrdering Facility: [facility] Address: [address] [place] [address] Performed By: #### 5 7021-8 ####[facility]ATORYCLIA [id number] [place] [address] [place] RBC (Bld) [#/Vol] 3.28 10*6/uL Low 4.20-6.00 [facility] Comment on above: Order Comment: Speci men Type: BLOOD SPECIMENOrdering Facility: [facility] Address: [address] [place] [address] Performed By: #### 5 7021-8 ####[facility]ATORYCLIA [id number] [address] [place] [facility] WBC (Bld) [#/Vol] 10.78 10*3/uL Normal 3.70-11.00 [facility] Comment on above: Order Comment: Speci men Type: BLOOD SPECIMENOrdering Facility: [facility] Address: [address] [place] [address] Performed By: #### 5 7021-8 ####[facility]ATORYCLIA [id number] [address] [place] [facility] CSF MANUAL DIFFon 07-26-2021 DIF TTL, CSF 100 cells counted Normal [facility] Comment on above: Order Comment: Speci men Type: CEREBROSPINAL FLUIDOrdering Facility: [facility] Address: [address] [place] [address] Performed By: #### 3 4563-7, [id number], [id number] ####[facility]ORYCLIA [id number] [address] [place] LYMPH%, CSF 26 % Low 50-90 [facility] Comment on above: Order Comment: Speci men Type: CEREBROSPINAL FLUIDOrdering Facility: [facility] Address: [address] [address] Performed By: #### 3 4563-7, [id number], [id number] ####[facility]ATORYCLIA [id number] [place] [address] [place] MACRO%, CSF 10 % High <1 [facility] Comment on above: Order Comment: Speci men Type: CEREBROSPINAL FLUIDOrdering Facility: [facility] Address: [address] [place] [address] Performed By: #### 3 4563-7, [id number], [id number] ####[facility]ATORYCLIA [id number] [place] [address] [place] MONO%, CSF 20 % Normal 10-50 [facility] Comment on above: Order Comment: Speci men Type: CEREBROSPINAL FLUIDOrdering Facility: [facility] Address: [address] [place] [address] Performed By: #### 3 4563-7, [id number], [id number] ####[facility]ATORYCLIA [id number] [place] [address] [place] NEUT%, CSF 40 % High 0-3 [facility] Comment on above: Order Comment: Speci men Type: CEREBROSPINAL FLUIDOrdering Facility: [facility] Address: [address] [place] [address] Performed By: #### 3 4563-7, [id number], [id number] ####[facility]ORYCLIA [id number] [address] [place] OTHER CL%, CSF 2 % Normal [facility] Comment on above: Order Comment: Speci men Type: CEREBROSPINAL FLUIDOrdering Facility: [facility] Address: [address] [place] [address] Result Comment: Path review to follow. Performed By: #### 3 4563-7, [id number], [id number] ####[facility]ATORYCLIA [id number] [place] [address] [place] REAC LYMPH %, CSF 2 % Normal [facility] Comment on above: Order Comment: Speci men Type: CEREBROSPINAL FLUIDOrdering Facility: [facility] Address: [address] [place] [address] Performed By: #### 3 4563-7, [id number], [id number] ####[facility]ATORYCLIA [id number] [address] [place] CSF PATHOLOGIST INTERP (LAB REFLEX ORDER-NO BILL)on 07-26-2021 CSF STAFF REVIEW Negative for maligna nt cells. Rare bacteria present, cocci in pairs and chains. Correlation with CSF cultures is recommended. Normal [facility] Comment on above: Order Comment: Speci men Type: CEREBROSPINAL FLUIDOrdering Facility: [facility] Address: [address] [place] [address] Performed By: #### 3 4563-7, [id number], [id number] ####[facility]ATORYCLIA [id number] [address] Pathologist name Reviewed by Amador Stevens MD [facility] Comment on above: Order Comment: Speci men Type: CEREBROSPINAL FLUIDOrdering Facility: [facility] Address: [address] [place] [address] Performed By: #### 3 4563-7, [id number], [id number] ####[facility]ATORYCLIA [id number] [address] Cell count panel (CSF)on Clarity (CSF) Slightly Cloudy Abnormal Clear [facility] Comment on above: Order Comment: Speci men Type: CEREBROSPINAL FLUIDOrdering Facility: [facility] Address: [address] [place] [address] Performed By: #### 3 4563-7, [id number], [id number] ####[facility]ATORYCLIA [id number] [address] [place] Clarity (Unsp spec) Clear Normal Clear [facility] Comment on above: Order Comment: Speci men Type: CEREBROSPINAL FLUIDOrdering Facility: [facility] Address: [address] [address] Performed By: #### 3 4563-7, [id number], [id number] ####[facility]ORATORYCLIA [id number] [address] Color (CSF) Colorless Normal Colorless [facility] Comment on above: Order Comment: Speci men Type: CEREBROSPINAL FLUIDOrdering Facility: [facility] Address: [facility] [address] Performed By: #### 3 4563-7, [id number], [id number] ####[facility]ATORYCLIA [id number] [address] Color (Spun CSF) Not Indicated Normal Colorless [facility] Comment on above: Order Comment: Speci men Type: CEREBROSPINAL FLUIDOrdering Facility: [facility] Address: [address] [place] [address] Performed By: #### 3 4563-7, [id number], [id number] ####[facility]ATORYCLIA [id number] [address] CSF TUBE NUMBER [employer] Normal [facility] Comment on above: Order Comment: Speci men Type: CEREBROSPINAL FLUIDOrdering Facility: [facility] Address: [address] [place] [address] Performed By: #### 3 4563-7, [id number], [id number] ####[facility]ATORYCLIA [id number] [address] RBC Manual cnt (CSF) [#/Vol] 1 cells/uL Normal 0-5 [facility] Comment on above: Order Comment: Speci men Type: CEREBROSPINAL FLUIDOrdering Facility: [facility] Address: [facility] [place] [address] Performed By: #### 3 4563-7, [id number], [id number] ####[facility]ATORYCLIA [id number] [address] WBC Manual cnt (CSF) [#/Vol] 50 cells/uL High 0-5 [facility] Comment on above: Order Comment: Speci men Type: CEREBROSPINAL FLUIDOrdering Facility: [facility] Address: [address] [place] [address] Performed By: #### 3 4563-7, [id number], [id number] ####[facility]ATORYCLIA [id number] [place] [address] [place] [facility] Glucose CSF-ncon Glucose (CSF) [Mass/Vol] 64 mg/dL Normal 40-70 [facility] Comment on above: Order Comment: Speci men Type: CEREBROSPINAL FLUIDOrdering Facility: [facility] Address: [address] [place] [address] Result Comment: Lumb ar CSF glucose values of healthy patients are approximately 60% of the plasma values and must always be compared with a concurrently measured plasma value for adequate clinical interpretation.References: 1. Glucose HK (GLUC3) [package insert V 12.0 Fijian]. [employer], [place], [place]. September 2015. 2. Michelle Moore, Loki HGarfield (2015). Chapter 7: Glucose and Lactate. F. Irina rose al.(eds.), Cerebrospinal Fluid in Clinical Neurology. [place]: [employer]. Performed By: #### 2 880-3, 2342-4 ####[facility]ATORYCLIA [id number] [place] [address] [place] Magnesium SerPl-ncon 07-26 Magnesium [Mass/Vol] 2.3 mg/dL Normal 1.7-2.3 [facility] Comment on above: Order Comment: Speci men Type: BLOOD SPECIMENOrdering Facility: [facility] Address: [address] [place] [address] Performed By: #### 1 9123-9, 2777-1, 3016-3 ####[facility]ATORYCLIA [id number] [place] [address] [place] NURSING PROGon 07-26-2021 NURSING PROG Normal [facility] Phosphate SerPl-ncon 07-26 Phosphate [Mass/Vol] 2.6 mg/dL Low 2.7-4.8 [facility] Comment on above: Order Comment: Speci men Type: BLOOD SPECIMENOrdering Facility: [facility] Address: [address] [place] [address] Performed By: #### 1 9123-9, 2777-1, 3016-3 ####[facility]ATORYCLIA [id number] [place] [address] [place] Prot CSF-mCncon 07-26-2021 Protein (CSF) [Mass/Vol] 64 mg/dL High 15-45 [facility] Comment on above: Order Comment: Speci men Type: CEREBROSPINAL FLUIDOrdering Facility: [facility] Address: [address] [place] [address] Performed By: #### 2 880-3, 2342-4 ####[facility]ATORYCLIA [id number] [address] [facility] THERAPY NTon 07-26-2021 THERAPY NT Normal [facility] TSH SerPl-aCncon 07-26-2021 TSH Qn 1.470 m[IU]/L Normal 0.270-4.200 [facility] Comment on above: Order Comment: Speci men Type: BLOOD SPECIMENOrdering Facility: [facility] Address: [address] [place] [address] Performed By: #### 1 9123-9, 2777-1, 3016-3 ####[facility]ATORYCLIA [id number] [address] [place] VITAMIN B12 BLOODon 07-27-19 Cobalamin (Vitamin B12) [Mass/Vol] 934 pg/mL Normal 232-1,245 [facility] Comment on above: Order Comment: Speci men Type: BLOOD SPECIMENOrdering Facility: [facility] Address: [address] [place] [address] Performed By: #### B 12 ####[facility]ATORYCLIA [id number] [address] [place] aPTT PPPon 07-26-2021 aPTT Coag (PPP) [Time] 53.6 s High 23.0-32.4 [facility] Comment on above: Order Comment: Speci men Type: BLOOD SPECIMENOrdering Facility: [facility] Address: [address] [place] [address] Performed By: #### 1 4979-9 ####[facility]ATORYCLIA [id number] [address] aPTT Coag (PPP) [Time] 44.9 s High 23.0-32.4 [facility] Comment on above: Order Comment: Speci men Type: BLOOD SPECIMENOrdering Facility: [facility] Address: [address] [place] [address] Performed By: #### 1 4979-9 ####[facility]ATORYCLIA [id number] [address] ALLIED HEALTHon 07-25-2021 ALLIED HEALTH HNO ID: [id number] Author: RT Rajwinder(R) Service: Radiology Author Type: Technologist Type: Allied Health Filed: 07/25/2021 1:37 PM Note Text: Called floor for MRI screening form [id number] Normal [facility] Bacteria Bld Culton 07-26-19 Bacteria identified Cx Nom (Bld) CULTURE, BLOOD: No growth 5 days Normal [facility] Comment on above: Performed By: #### 6 00-7 ####[facility]ORYCLIA [id number] [address] Bacteria identified Cx Nom (Bld) CULTURE, BLOOD: No growth 5 days Normal [facility] Comment on above: Performed By: #### 6 00-7 ####[facility]ATORYCLIA [id number] [address] CASE MANAGEMon 07-25-2021 CASE MANAGEM Normal [facility] CBC W Auto Differential pane l (Bld)on 07-25-2021 Basophils (Bld) [#/Vol] 0.06 10*3/uL Normal <0.11 [facility] Comment on above: Order Comment: Speci men Type: BLOOD SPECIMENOrdering Facility: [facility] Address: [address] [place] [address] Performed By: #### 5 7021-8 ####[facility]ATORYCLIA [id number] [place] [address] [place] Basophils/100 WBC (Bld) 0.6 % Normal [facility] Comment on above: Order Comment: Speci men Type: BLOOD SPECIMENOrdering Facility: [facility] Address: [address] [place] [address] Performed By: #### 5 7021-8 ####[facility]ATORYCLIA [id number] [address] [place] Differential cell count method Nom (Bld) Auto Normal [facility] Comment on above: Order Comment: Speci men Type: BLOOD SPECIMENOrdering Facility: [facility] Address: [address] [place] [address] Performed By: #### 5 7021-8 ####[facility]ATORYCLIA [id number] [address] [place] Eosinophils (Bld) [#/Vol] 0.26 10*3/uL Normal <0.46 [facility] Comment on above: Order Comment: Speci men Type: BLOOD SPECIMENOrdering Facility: [facility] Address: [address] [place] [address] Performed By: #### 5 7021-8 ####[facility]ORYCLIA [id number] [address] [place] Eosinophils/100 WBC (Bld) 2.5 % Normal [facility] Comment on above: Order Comment: Speci men Type: BLOOD SPECIMENOrdering Facility: [facility] Address: [address] [place] [address] Performed By: #### 5 7021-8 ####[facility]ATORYCLIA [id number] [address] Erythrocyte distribution width (RBC) [Ratio] 16.9 % High 11.5-15.0 [facility] Comment on above: Order Comment: Speci men Type: BLOOD SPECIMENOrdering Facility: [facility] Address: [address] [place] [address] Performed By: #### 5 7021-8 ####[facility]ATORYCLIA [id number] [address] [facility] Hematocrit (Bld) [Volume fraction] 29.6 % Low 39.0-51.0 [facility] Comment on above: Order Comment: Speci men Type: BLOOD SPECIMENOrdering Facility: [facility] Address: [address] [place] [address] Performed By: #### 5 7021-8 ####[facility]ATORYCLIA [id number] [address] [place] [facility] Hemoglobin (Bld) [Mass/Vol] 8.8 g/dL Low 13.0-17.0 [facility] Comment on above: Order Comment: Speci men Type: BLOOD SPECIMENOrdering Facility: [facility] Address: [address] [place] [address] Performed By: #### 5 7021-8 ####[facility]ATORYCLIA [id number] [address] [place] IMMATURE GRAN % 0.6 % Normal [facility] Comment on above: Order Comment: Speci men Type: BLOOD SPECIMENOrdering Facility: [facility] Address: [address] [place] [address] Performed By: #### 5 7021-8 ####[facility]ATORYCLIA [id number] [address] IMMATURE GRAN ABS 0.06 k/uL Normal <0.10 [facility] Comment on above: Order Comment: Speci men Type: BLOOD SPECIMENOrdering Facility: [facility] Address: [address] [place] [address] Performed By: #### 5 7021-8 ####[facility]ATORYCLIA [id number] [address] [place] Lymphocytes (Bld) [#/Vol] 2.15 10*3/uL Normal 1.00-4.00 [facility] Comment on above: Order Comment: Speci men Type: BLOOD SPECIMENOrdering Facility: [facility] Address: [address] [place] [address] Performed By: #### 5 7021-8 ####[facility]ATORYCLIA [id number] [address] Lymphocytes/100 WBC (Bld) 20.7 % Normal [facility] Comment on above: Order Comment: Speci men Type: BLOOD SPECIMENOrdering Facility: [facility] Address: [address] [place] [address] Performed By: #### 5 7021-8 ####[facility]ATORYCLIA [id number] [address] MCH (RBC) [Entitic mass] 28.2 pg Normal 26.0-34.0 [facility] Comment on above: Order Comment: Speci men Type: BLOOD SPECIMENOrdering Facility: [facility] Address: [address] [place] [address] Performed By: #### 5 7021-8 ####[facility]ATORYCLIA [id number] [address] [place] [facility] MCHC (RBC) [Mass/Vol] 29.7 g/dL Low 30.5-36.0 [facility] Comment on above: Order Comment: Speci men Type: BLOOD SPECIMENOrdering Facility: [facility] Address: [address] [place] [address] Performed By: #### 5 7021-8 ####[facility]ATORYCLIA [id number] [address] [place] [facility] MCV (RBC) [Entitic vol] 94.9 fL Normal 80.0-100.0 [facility] Comment on above: Order Comment: Speci men Type: BLOOD SPECIMENOrdering Facility: [facility] Address: [address] [place] [address] Performed By: #### 5 7021-8 ####[facility]ORATORYCLIA [id number] [address] [place] Monocytes (Bld) [#/Vol] 0.62 10*3/uL Normal <0.87 [facility] Comment on above: Order Comment: Speci men Type: BLOOD SPECIMENOrdering Facility: [facility] Address: [address] [place] [address] Performed By: #### 5 7021-8 ####[facility]ORYCLIA [id number] [address] Monocytes/100 WBC (Bld) 6.0 % Normal [facility] Comment on above: Order Comment: Speci men Type: BLOOD SPECIMENOrdering Facility: [facility] Address: [address] [place] [address] Performed By: #### 5 7021-8 ####[facility]ATORYCLIA [id number] [address] [place] Neutrophils (Bld) [#/Vol] 7.25 10*3/uL Normal 1.45-7.50 [facility] Comment on above: Order Comment: Speci men Type: BLOOD SPECIMENOrdering Facility: [facility] Address: [address] [place] [address] Performed By: #### 5 7021-8 ####[facility]ORYCLIA [id number] [address] [place] Neutrophils/100 WBC (Bld) 69.6 % Normal [facility] Comment on above: Order Comment: Speci men Type: BLOOD SPECIMENOrdering Facility: [facility] Address: [address] [place] [address] Performed By: #### 5 7021-8 ####[facility] LABORATORYCLIA [id number] [place] [address] [place] Nucleated RBC (Bld) [#/Vol] 10*3/uL Normal <0.01 [facility] Comment on above: Order Comment: Speci men Type: BLOOD SPECIMENOrdering Facility: [facility] Address: [address] [place] [address] Performed By: #### 5 7021-8 ####[facility]ATORYCLIA [id number] [place] [address] [place] Nucleated RBC/100 WBC (Bld) [Ratio] 0.0 /100 WBC Normal [facility] Comment on above: Order Comment: Speci men Type: BLOOD SPECIMENOrdering Facility: [facility] Address: [address] [place] [address] Performed By: #### 5 7021-8 ####[facility]ATORYCLIA [id number] [place] [address] [place] Platelet mean volume (Bld) [Entitic vol] 11.3 fL Normal 9.0-12.7 [facility] Comment on above: Order Comment: Speci men Type: BLOOD SPECIMENOrdering Facility: [facility] Address: [address] [place] [address] Performed By: #### 5 7021-8 ####[facility]ATORYCLIA [id number] [place] [address] [place] Platelets (Bld) [#/Vol] 243 10*3/uL Normal 150-400 [facility] Comment on above: Order Comment: Speci men Type: BLOOD SPECIMENOrdering Facility: [facility] Address: [address] Performed By: #### 5 7021-8 ####[facility]ATORYCLIA [id number] [place] [address] [place] RBC (Bld) [#/Vol] 3.12 10*6/uL Low 4.20-6.00 [facility] Comment on above: Order Comment: Speci men Type: BLOOD SPECIMENOrdering Facility: [facility] Address: [address] [place] [address] Performed By: #### 5 7021-8 ####[facility]ATORYCLIA [id number] [place] [address] [place] WBC (Bld) [#/Vol] 10.40 10*3/uL Normal 3.70-11.00 [facility] Comment on above: Order Comment: Speci men Type: BLOOD SPECIMENOrdering Facility: [facility] Address: [address] [place] [address] Performed By: #### 5 7021-8 ####[facility]ORYCLIA [id number] [address] [place] CONSULT PROGon 07-25-2021 CONSULT PROG Normal [facility] MYCOPLASMA PNEUM IGMon 07-25 M. PNEUMO IGM, QUAL Negative Normal Negative [facility] Comment on above: Order Comment: Speci [facility] Type: BLOOD SPECIMENOrdering Facility: [facility] Address: [address] [place] [address] Result Comment: Myco plasma pneumoniae IgM antibody test is used as an aid in diagnosis of recent infection with M. pneumoniae. It may occasionally remain elevated for extended periods after an acute infection. Cannot exclude recent infection if the specimen collected 7-10 days after onset of signs and symptoms. Clinical correlation is required. Performed By: #### M YCOPM ####[facility] LABCLIA [id number] [facility] [id number] [place] NURSING PROGon 07-25-2021 NURSING PROG Normal [facility] THERAPY NTon 07-25-2021 THERAPY NT Normal [facility] THERAPY NT Normal [facility] aPTT PPPon 07-25-2021 aPTT Coag (PPP) [Time] 62.6 s High 23.0-32.4 [facility] Comment on above: Order Comment: Speci men Type: BLOOD SPECIMENOrdering Facility: [facility] Address: [address] [place] [address] Performed By: #### 1 4979-9 ####[facility]ATORYCLIA [id number] [place] [address] [place] Bacteria Ur Culton 2 Bacteria identified Cx Nom (U) CULTURE, URINE: No growth (<100 CFU/ml) Normal [facility] Comment on above: Performed By: #### 6 30-4 ####[facility]ATORYCLIA [id number] [place] [address] [place] Basic metabolic 2000 panelon 07-24-2021 Anion gap [Moles/Vol] 13 mmol/L Normal 9-18 [facility] Comment on above: Order Comment: Speci men Type: BLOOD SPECIMENOrdering Facility: [facility] Address: [address] [place] [address] Performed By: #### 1 9123-9, KATIE, 2776-05, 08731-5 ####[facility]ATORYCLIA [id number] [place] [address] [place] Calcium [Mass/Vol] 9.5 mg/dL Normal 8.5-10.2 [facility] Comment on above: Order Comment: Speci men Type: BLOOD SPECIMENOrdering Facility: [facility] Address: [address] [place] [address] Performed By: #### 1 9123-9, KATIE, 2776-05, 99541-2 ####[facility]ORATORYCLIA [id number] [place] [address] [place] Chloride [Moles/Vol] 102 mmol/L Normal 97-105 [facility] Comment on above: Order Comment: Speci men Type: BLOOD SPECIMENOrdering Facility: [facility] [facility] Address: [address] [address] Performed By: #### 1 9123-9, KATIE, 2776-05, ####[facility]ATORYCLIA [id number] [place] [address] [place] CO2 [Moles/Vol] 28 mmol/L Normal 22-30 [facility] Comment on above: Order Comment: Speci men Type: BLOOD SPECIMENOrdering Facility: [facility] Address: [address] [address] Performed By: #### 1 9123-9, PROCAL, 2777-1, 88331-6 ####[facility] SERVICESIA [id number] [address] [place] Creatinine [Mass/Vol] 0.86 mg/dL Normal 0.73-1.22 [facility] Comment on above: Order Comment: Speci men Type: BLOOD SPECIMENOrdering Facility: [facility] Address: [address] [address] Performed By: #### 1 9123-9, [facility], 277-, 14556-3 ####[facility] SERVICESIA [id number] [address] [place] ESTIMATED GLOMERULAR FILTRATION RATE 94 mL/min/1.73m??? Normal >=60 [facility] Comment on above: Order Comment: Speci men Type: BLOOD SPECIMENOrdering Facility: [facility] Address: [address] [address] Result Comment: Luzmaria mated Glomerular Filtration Rate [...] Performed By: #### 1 9123-9, PROCAL, 2777-1, 84811-1 ####[facility] SERVICESIA [id number] [address] [place] Glucose [Mass/Vol] 148 mg/dL High 74-99 [facility] Comment on above: Order Comment: Speci men Type: BLOOD SPECIMENOrdering Facility: [facility] Address: [address] [address] Result Comment: The [place] [employer] [...] Performed By: #### 1 9123-9, PROCAL, 2776-, 49782-3 ####[facility]ATORYCLIA [id number] [place] [address] [place] Potassium [Moles/Vol] 4.0 mmol/L Normal 3.7-5.1 [facility] Comment on above: Order Comment: Shira feldman Type: BLOOD SPECIMENOrdering Facility: [facility] Address: [address] [place] [address] Performed By: #### 1 9123-9, [facility], 2776-05, 64539-3 ####[facility]ITALCLIA [id number] [place] [address] [place] Sodium [Moles/Vol] 143 mmol/L Normal 136-144 [facility] Comment on above: Order Comment: Shira feldman Type: BLOOD SPECIMENOrdering Facility: [facility] Address: [address] [place] [address] Performed By: #### 1 9123-9, PROCMD, 2776-05, 40170-7 ####[facility]ATORYCLIA [id number] [place] [address] [place] Urea nitrogen [Mass/Vol] 38 mg/dL High 9-24 [facility] Comment on above: Order Comment: Shira feldman Type: BLOOD SPECIMENOrdering Facility: [facility] Address: [address] [address] Performed By: #### 1 9123-9, PROCAL, 7-, 13911-6 ####[facility]ORYCLIA [id number] [place] [address] [place] CBC W Auto Differential pane l (Bld)on 07-24-2021 Basophils (Bld) [#/Vol] 0.06 10*3/uL Normal <0.11 [facility] Comment on above: Order Comment: Speci men Type: BLOOD SPECIMENOrdering Facility: [facility] Address: [address] [place] [address] Performed By: #### 5 7021-8 ####[facility]ATORYCLIA [id number] [address] [place] [facility] Basophils/100 WBC (Bld) 0.6 % Normal [facility] Comment on above: Order Comment: Speci men Type: BLOOD SPECIMENOrdering Facility: [facility] Address: [address] [place] [address] Performed By: #### 5 7021-8 ####[facility]ORYCLIA [id number] [address] Differential cell count method Nom (Bld) Auto Normal [facility] Comment on above: Order Comment: Speci men Type: BLOOD SPECIMENOrdering Facility: [facility] Address: [address] [place] [address] Performed By: #### 5 7021-8 ####[facility]ATORYCLIA [id number] [address] [place] Eosinophils (Bld) [#/Vol] 0.03 10*3/uL Normal <0.46 [facility] Comment on above: Order Comment: Speci men Type: BLOOD SPECIMENOrdering Facility: [facility] Address: [address] [place] [address] Performed By: #### 5 7021-8 ####[facility]ATORYCLIA [id number] [address] Eosinophils/100 WBC (Bld) 0.3 % Normal [facility] Comment on above: Order Comment: Speci men Type: BLOOD SPECIMENOrdering Facility: [facility] Address: [address] [address] Performed By: #### 5 7021-8 ####[facility]ORYCLIA [id number] [address] Erythrocyte distribution width (RBC) [Ratio] 17.0 % High 11.5-15.0 [facility] Comment on above: Order Comment: Speci men Type: BLOOD SPECIMENOrdering Facility: [facility] Address: [address] [place] [address] Performed By: #### 5 7021-8 ####[facility]ORYCLIA [id number] [address] Hematocrit (Bld) [Volume fraction] 30.5 % Low 39.0-51.0 [facility] Comment on above: Order Comment: Speci men Type: BLOOD SPECIMENOrdering Facility: [facility] Address: [address] [place] [address] Performed By: #### 5 7021-8 ####[facility]ATORYCLIA [id number] [address] Hemoglobin (Bld) [Mass/Vol] 9.0 g/dL Low 13.0-17.0 [facility] Comment on above: Order Comment: Speci men Type: BLOOD SPECIMENOrdering Facility: [facility] Address: [address] [place] [address] Performed By: #### 5 7021-8 ####[facility]ATORYCLIA [id number] [address] IMMATURE GRAN % 0.5 % Normal [facility] Comment on above: Order Comment: Speci men Type: BLOOD SPECIMENOrdering Facility: [facility] Address: [address] [place] [address] Performed By: #### 5 7021-8 ####[facility]ORYCLIA [id number] [address] IMMATURE GRAN ABS 0.05 k/uL Normal <0.10 [facility] Comment on above: Order Comment: Speci men Type: BLOOD SPECIMENOrdering Facility: [facility] Address: [address] [place] [address] Performed By: #### 5 7021-8 ####[facility]ATORYCLIA [id number] [address] [facility] Lymphocytes (Bld) [#/Vol] 1.68 10*3/uL Normal 1.00-4.00 [facility] Comment on above: Order Comment: Speci men Type: BLOOD SPECIMENOrdering Facility: [facility] Address: [address] [place] [address] Performed By: #### 5 7021-8 ####[facility]ATORYCLIA [id number] [address] Lymphocytes/100 WBC (Bld) 16.2 % Normal [facility] Comment on above: Order Comment: Speci men Type: BLOOD SPECIMENOrdering Facility: [facility] Address: [address] [place] [address] Performed By: #### 5 7021-8 ####[facility]ATORYCLIA [id number] [address] [place] MCH (RBC) [Entitic mass] 27.4 pg Normal 26.0-34.0 [facility] Comment on above: Order Comment: Speci men Type: BLOOD SPECIMENOrdering Facility: [facility] Address: [address] [place] [address] Performed By: #### 5 7021-8 ####[facility]ORYCLIA [id number] [address] [place] MCHC (RBC) [Mass/Vol] 29.5 g/dL Low 30.5-36.0 [facility] Comment on above: Order Comment: Speci men Type: BLOOD SPECIMENOrdering Facility: [facility] Address: [address] [place] [address] Performed By: #### 5 7021-8 ####[facility]ORYCLIA [id number] [address] [place] MCV (RBC) [Entitic vol] 93.0 fL Normal 80.0-100.0 [facility] Comment on above: Order Comment: Speci men Type: BLOOD SPECIMENOrdering Facility: [facility] Address: [address] [place] [address] Performed By: #### 5 7021-8 ####[facility]ORYCLIA [id number] [place] [address] [place] Monocytes (Bld) [#/Vol] 0.63 10*3/uL Normal <0.87 [facility] Comment on above: Order Comment: Speci men Type: BLOOD SPECIMENOrdering Facility: [facility] Address: [address] [place] [address] Performed By: #### 5 7021-8 ####[facility]ORYCLIA [id number] [address] Monocytes/100 WBC (Bld) 6.1 % Normal [facility] Comment on above: Order Comment: Speci men Type: BLOOD SPECIMENOrdering Facility: [facility] Address: [address] [place] [address] Performed By: #### 5 7021-8 ####[facility]ATORYCLIA [id number] [address] [place] Neutrophils (Bld) [#/Vol] 7.91 10*3/uL High 1.45-7.50 [facility] Comment on above: Order Comment: Speci men Type: BLOOD SPECIMENOrdering Facility: [facility] Address: [address] [place] [address] Performed By: #### 5 7021-8 ####[facility]ORYCLIA [id number] [address] [place] Neutrophils/100 WBC (Bld) 76.3 % Normal [facility] Comment on above: Order Comment: Speci men Type: BLOOD SPECIMENOrdering Facility: [facility] Address: [address] [place] [address] Performed By: #### 5 7021-8 ####[facility]ORYCLIA [id number] [address] [place] Nucleated RBC (Bld) [#/Vol] 10*3/uL Normal <0.01 [facility] Comment on above: Order Comment: Speci men Type: BLOOD SPECIMENOrdering Facility: [facility] Address: [address] [place] [address] Performed By: #### 5 7021-8 ####[facility]ORYCLIA [id number] [address] [place] Nucleated RBC/100 WBC (Bld) [Ratio] 0.0 /100 WBC Normal [facility] Comment on above: Order Comment: Speci men Type: BLOOD SPECIMENOrdering Facility: [facility] Address: [address] [place] [address] Performed By: #### 5 7021-8 ####[facility]ORYCLIA [id number] [address] Platelet mean volume (Bld) [Entitic vol] 11.1 fL Normal 9.0-12.7 [facility] Comment on above: Order Comment: Speci men Type: BLOOD SPECIMENOrdering Facility: [facility] Address: [address] [place] [address] Performed By: #### 5 7021-8 ####[facility]ORYCLIA [id number] [address] [place] Platelets (Bld) [#/Vol] 285 10*3/uL Normal 150-400 [facility] Comment on above: Order Comment: Speci men Type: BLOOD SPECIMENOrdering Facility: [facility] Address: [address] [place] [address] Performed By: #### 5 7021-8 ####[facility]ORYCLIA [id number] [address] [place] RBC (Bld) [#/Vol] 3.28 10*6/uL Low 4.20-6.00 [facility] Comment on above: Order Comment: Speci men Type: BLOOD SPECIMENOrdering Facility: [facility] Address: [address] [place] [address] Performed By: #### 5 7021-8 ####[facility]ORYCLIA [id number] [place] [address] [place] WBC (Bld) [#/Vol] 10.36 10*3/uL Normal 3.70-11.00 [facility] Comment on above: Order Comment: Speci men Type: BLOOD SPECIMENOrdering Facility: [facility] Address: [address] [place] [address] Performed By: #### 5 7021-8 ####[facility]ORYCLIA [id number] [address] [place] Legionella Ag Ur Qlon 2021 Legionella sp Ag Ql (U) Negative Normal Negative [facility] Comment on above: Order Comment: Speci men Type: URINE SPECIMENOrdering Facility: [facility] Address: [address] [place] [address] Performed By: #### 3 2781-7 ####[facility]ORYCLIA [id number] [place] [address] [place] Magnesium SerPl-mCncon 07-24 Magnesium [Mass/Vol] 2.3 mg/dL Normal 1.7-2.3 [facility] Comment on above: Order Comment: Speci men Type: BLOOD SPECIMENOrdering Facility: [facility] Address: [address] [place] [address] Performed By: #### 1 9123-9, PROCAL, 2777-1, 44050-4 ####[facility]ORYCLIA [id number] [address] [place] NURSING PROGon 07-24-2021 NURSING PROG Normal [facility] PROCALCITONIN (LAB)on 2021 Procalcitonin [Mass/Vol] 0.15 ng/mL High <0.09 [facility] Comment on above: Order Comment: Speci men Type: BLOOD SPECIMENOrdering Facility: [facility] Address: [address] [place] [address] Result Comment: For a guided interpretation of test results, please visit the Change in Procalcitonin Calculator, [email or web address]. Performed By: #### 1 9123-9, PROCCARLITOS, 2777-1, 35796-2 ####[facility]ATORYCLIA [id number] [address] [place] Phosphate SerPl-mCncon 07-24 Phosphate [Mass/Vol] 3.9 mg/dL Normal 2.7-4.8 [facility] Comment on above: Order Comment: Speci men Type: BLOOD SPECIMENOrdering Facility: [facility] Address: [address] [place] [address] Performed By: #### 1 9123-9, PROCAL, 2777-1, 10421-7 ####[facility]ORYCLIA [id number] [address] [place] STREPTOCOCCUS PNEUMONIAE AGo n 07-24-2021 STREPTOCOCCUS PNEUMONIAE AG Normal [facility] Comment on above: Performed By: #### S PNAG ####[facility]ORYCLIA [id number] [address] [place] aPTT PPPon 07-24-2021 aPTT Coag (PPP) [Time] 60.8 s High 23.0-32.4 [facility] Comment on above: Order Comment: Speci men Type: BLOOD SPECIMENOrdering Facility: [facility] Address: [address] [place] [address] Performed By: #### 1 4979-9 ####[facility]ORYCLIA [id number] [address] [place] aPTT Coag (PPP) [Time] 38.2 s High 23.0-32.4 [facility] Comment on above: Order Comment: Speci men Type: BLOOD SPECIMENOrdering Facility: [facility] Address: [address] [address] Performed By: #### 1 4979-9 ####[facility]ORYCLIA [id number] [address] aPTT Coag (PPP) [Time] 35.9 s High 23.0-32.4 [facility] Comment on above: Order Comment: Speci men Type: BLOOD SPECIMENOrdering Facility: [facility] Address: [address] [place] [address] Performed By: #### 1 4979-9 ####[facility]ORYCLIA [id number] [address] aPTT Coag (PPP) [Time] 28.8 s Normal 23.0-32.4 [facility] Comment on above: Order Comment: Speci men Type: BLOOD SPECIMENOrdering Facility: [facility] Address: [address] [place] [address] Performed By: #### 1 4979-9 ####[facility]ORYCLIA [id number] [address] [place] ALLIED HEALTHon 07-23-2021 ALLIED HEALTH Normal [facility] ALLIED HEALTH Normal [facility] ALLIED HEALTH Normal [facility] ARTERIAL BLOOD GASESon 07-23 Base excess Calc (Bld) [Moles/Vol] 4 mmol/L High 0-2 [facility] Comment on above: Order Comment: Speci men Type: ARTERIAL BLOOD SPECIMENOrdering Facility: [facility] Address: [address] [address] Performed By: #### A LLBG ####[facility]ORYCLIA [id number] [address] Body temperature 100.58 [degF] Normal [facility] Comment on above: Order Comment: Speci men Type: ARTERIAL BLOOD SPECIMENOrdering Facility: [facility] Address: [address] [place] [address] Performed By: #### A LLBG ####[facility]ORYCLIA [id number] [address] STATES OF [facility] CALCIUM IONIZED, PH CORRECTED 1.26 mmol/L Normal 1.08-1.30 [facility] Comment on above: Order Comment: Speci men Type: ARTERIAL BLOOD SPECIMENOrdering Facility: [facility] Address: [address] [place] [address] Performed By: #### A LLBG ####[facility]ATORYCLIA [id number] [place] [address] [place] Calcium.ionized (BldV) [Mass/Vol] 1.25 mmol/L Normal 1.08-1.30 [facility] Comment on above: Order Comment: Speci men Type: ARTERIAL BLOOD SPECIMENOrdering Facility: [facility] Address: [address] [place] [address] Performed By: #### A LLBG ####[facility]ORYCLIA [id number] [address] Carboxyhemoglobin (BldA) [Mass fraction] 1.2 % Normal 0.0-2.0 [facility] Comment on above: Order Comment: Speci men Type: ARTERIAL BLOOD SPECIMENOrdering Facility: [facility] Address: [address] [place] [address] Result Comment: Carb oxyhemoglobin Reference Range for Smokers: 2.0-8.0% Performed By: #### A LLBG ####[facility]ORYCLIA [id number] [place] [address] [place] CO2 (Bld) [Partial pressure] 46 mm Hg Normal 36-46 [facility] Comment on above: Order Comment: Speci men Type: ARTERIAL BLOOD SPECIMENOrdering Facility: [facility] Address: [address] [place] [address] Performed By: #### A LLBG ####[facility]ORYCLIA [id number] [address] [place] CO2 [Moles/Vol] 27 mmol/L Normal 22-28 [facility] Comment on above: Order Comment: Speci men Type: ARTERIAL BLOOD SPECIMENOrdering Facility: [facility] Address: [address] [place] [address] Performed By: #### A LLBG ####[facility]ORYCLIA [id number] [address] CO2 adjusted to patient's actual temperature (Bld) [Partial pressure] 48 mmHg High 36-46 [facility] Comment on above: Order Comment: Speci men Type: ARTERIAL BLOOD SPECIMENOrdering Facility: [facility] Address: [address] [place] [address] Performed By: #### A LLBG ####[facility]ORYCLIA [id number] [address] [place] Glucose [Mass/Vol] 134 mg/dL High 60-105 [facility] Comment on above: Order Comment: Speci men Type: ARTERIAL BLOOD SPECIMENOrdering Facility: [facility] Address: [address] [place] [address] Performed By: #### A LLBG ####[facility]ORYCLIA [id number] [address] [place] HCO3 (Bld) [Moles/Vol] 29 mmol/L High 22-26 [facility] Comment on above: Order Comment: Speci men Type: ARTERIAL BLOOD SPECIMENOrdering Facility: [facility] Address: [address] [place] [address] Performed By: #### A LLBG ####[facility]ATORYCLIA [id number] [address] Hematocrit (Bld) [Volume fraction] 31.4 % Low 39.0-51.0 [facility] Comment on above: Order Comment: Speci men Type: ARTERIAL BLOOD SPECIMENOrdering Facility: [facility] Address: [address] [place] [address] Performed By: #### A LLBG ####[facility]ORYCLIA [id number] [address] [place] Hemoglobin (Bld) [Mass/Vol] 10.2 g/dL Low 13.0-17.0 [facility] Comment on above: Order Comment: Speci men Type: ARTERIAL BLOOD SPECIMENOrdering Facility: [facility] Address: [facility] [address] Performed By: #### A LLBG ####[facility]ATORYCLIA [id number] [address] Methemoglobin (Bld) [Mass fraction] % Normal 0.0-1.5 [facility] Comment on above: Order Comment: Speci men Type: ARTERIAL BLOOD SPECIMENOrdering Facility: [facility] Address: [address] [place] [address] Performed By: #### A LLBG ####[facility]ORYCLIA [id number] [address] O2 THERAPY Ventilator Normal [facility] Comment on above: Order Comment: Speci men Type: ARTERIAL BLOOD SPECIMENOrdering Facility: [facility] Address: [address] [place] [address] Performed By: #### A LLBG ####[facility]ATORYCLIA [id number] [address] Oxygen (Bld) [Partial pressure] 113 mm Hg High 85-95 [facility] Comment on above: Order Comment: Speci men Type: ARTERIAL BLOOD SPECIMENOrdering Facility: [facility] Address: [address] [place] [address] Performed By: #### A LLBG ####[facility]ATORYCLIA [id number] [address] Oxygen adjusted to patient's actual temperature (Bld) [Partial pressure] 119 mmHg High 85-95 [facility] Comment on above: Order Comment: Speci men Type: ARTERIAL BLOOD SPECIMENOrdering Facility: [facility] Address: [address] [place] [address] Performed By: #### A LLBG ####[facility]ATORYCLIA [id number] [place] [address] OXYGEN SATURATION, ARTERIAL 98 % Normal 95-98 [facility] Comment on above: Order Comment: Speci men Type: ARTERIAL BLOOD SPECIMENOrdering Facility: [facility] Address: [address] [place] [address] Performed By: #### A LLBG ####[facility]ATORYCLIA [id number] [address] [place] Oxyhemoglobin (BldA) [Mass fraction] 96 % Normal 95-98 [facility] Comment on above: Order Comment: Speci men Type: ARTERIAL BLOOD SPECIMENOrdering Facility: [facility] Address: [address] [place] [address] Performed By: #### A LLBG ####[facility]ATORYCLIA [id number] [address] [place] pH (Bld) 7.41 [pH] Normal 7.35-7.45 [facility] Comment on above: Order Comment: Speci men Type: ARTERIAL BLOOD SPECIMENOrdering Facility: [facility] Address: [address] [place] [address] Performed By: #### A LLBG ####[facility]ATORYCLIA [id number] [address] pH adjusted to patient's actual temperature (Bld) 7.40 Normal 7.35-7.45 [facility] Comment on above: Order Comment: Speci men Type: ARTERIAL BLOOD SPECIMENOrdering Facility: [facility] Address: [address] [place] [address] Performed By: #### A LLBG ####[facility]ATORYCLIA [id number] [address] [place] Potassium [Moles/Vol] 4.3 mmol/L Normal 3.5-5.0 [facility] Comment on above: Order Comment: Speci men Type: ARTERIAL BLOOD SPECIMENOrdering Facility: [facility] Address: [address] [place] [address] Performed By: #### A LLBG ####[facility]ATORYCLIA [id number] [address] [place] Sodium [Moles/Vol] 144 mmol/L Normal 136-144 [facility] Comment on above: Order Comment: Speci men Type: ARTERIAL BLOOD SPECIMENOrdering Facility: [facility] Address: [address] [address] Performed By: #### A LLBG ####[facility]ATORYCLIA [id number] [address] Bacteria CSF Culton 07-24-19 22 Bacteria identified Cx Nom (CSF) Abnormal [facility] Comment on above: Performed By: #### 6 06-4 ####[facility]ORYCLIA [id number] [address] [place] Basic metabolic 2000 panelon 07-23-2021 Anion gap [Moles/Vol] 12 mmol/L Normal 9-18 [facility] Comment on above: Order Comment: Speci men Type: BLOOD SPECIMENOrdering Facility: [facility] Address: [address] [place] [address] Performed By: #### 2 4321-2 ####[facility] LABORATORYCLIA [id number] [address] [place] Calcium [Mass/Vol] 9.7 mg/dL Normal 8.5-10.2 [facility] Comment on above: Order Comment: Speci men Type: BLOOD SPECIMENOrdering Facility: [facility] Address: [address] [address] Performed By: #### 2 4321-2 ####[facility]ORATORYCLIA [id number] [address] [place] Chloride [Moles/Vol] 105 mmol/L Normal 97-105 [facility] Comment on above: Order Comment: Speci men Type: BLOOD SPECIMENOrdering Facility: [facility] Address: [address] [address] Performed By: #### 2 4321-2 ####[facility] LABORATORYCLIA [id number] [address] [place] OF [facility] CO2 [Moles/Vol] 28 mmol/L Normal 22-30 [facility] Comment on above: Order Comment: Speci men Type: BLOOD SPECIMENOrdering Facility: [facility] Address: [address] [place] [address] Performed By: #### 2 4321-2 ####[facility]ORYCLIA [id number] [address] [place] [facility] Creatinine [Mass/Vol] 0.78 mg/dL Normal 0.73-1.22 [facility] Comment on above: Order Comment: Speci men Type: BLOOD SPECIMENOrdering Facility: [facility] Address: [address] [place] [address] Performed By: #### 2 4321-2 ####[facility] [id number] [address] ESTIMATED GLOMERULAR FILTRATION RATE 97 mL/min/1.73m??? Normal >=60 [facility] Comment on above: Order Comment: Speci men Type: BLOOD SPECIMENOrdering Facility: [facility] Address: [address] [place] [address] Result Comment: Luzmaria mated Glomerular Filtration Rate [...] actual GFR. Performed By: #### 2 4321-2 ####[facility]ORYCLIA [id number] [address] [place] [facility] Glucose [Mass/Vol] 127 mg/dL High 74-99 [facility] Comment on above: Order Comment: Speci men Type: BLOOD SPECIMENOrdering Facility: [facility] Address: [address] [place] [address] Result Comment: The [place] [employer] [...] 2016.39(Suppl 1). Performed By: #### 2 4321-2 ####[facility]ORYCLIA [id number] [address] [place] [facility] Potassium [Moles/Vol] 4.3 mmol/L Normal 3.7-5.1 [facility] Comment on above: Order Comment: Shira feldman Type: BLOOD SPECIMENOrdering Facility: [facility] Address: [address] [place] [address] Performed By: #### 2 4321-2 ####[facility]ORYCLIA [id number] [address] [place] [facility] Sodium [Moles/Vol] 145 mmol/L High 136-144 [facility] Comment on above: Order Comment: Shira feldman Type: BLOOD SPECIMENOrdering Facility: [facility] Address: [address] [place] [address] Performed By: #### 2 4321-2 ####[facility]ORYCLIA [id number] [address] [place] [facility] Urea nitrogen [Mass/Vol] 37 mg/dL High 9-24 [facility] Comment on above: Order Comment: Shira feldman Type: BLOOD SPECIMENOrdering Facility: [facility] Address: [address] [place] [address] Performed By: #### 2 4321-2 ####[facility]ATORYCLIA [id number] [place] [address] [place] C diff Tox gens Stl Ql MEGAN+p robeon 07-23-2021 C. difficile toxin genes MEGAN+probe Ql (Stl) Negative Normal Negative for C. difficile toxin by PCR [facility] Comment on above: Order Comment: Speci men Type: STOOL SPECIMENOrdering Facility: [facility] Address: [address] [place] [address] Performed By: #### 5 4067-4 ####[facility]ORYCLIA [id number] [address] [place] [facility] CBC W Auto Differential pane l (Bld)on 07-23-2021 Basophils (Bld) [#/Vol] 0.07 10*3/uL Normal <0.11 [facility] Comment on above: Order Comment: Speci men Type: BLOOD SPECIMENOrdering Facility: [facility] Address: [address] [place] [address] Performed By: #### 5 7021-8 ####[facility]ORYCLIA [id number] [address] [place] [facility] Basophils/100 WBC (Bld) 0.5 % Normal [facility] Comment on above: Order Comment: Speci men Type: BLOOD SPECIMENOrdering Facility: [facility] Address: [address] [place] [address] Performed By: #### 5 7021-8 ####[facility]ORYCLIA [id number] [address] Differential cell count method Nom (Bld) Auto Normal [facility] Comment on above: Order Comment: Speci men Type: BLOOD SPECIMENOrdering Facility: [facility] Address: [address] [place] [address] Performed By: #### 5 7021-8 ####[facility]ORYCLIA [id number] [place] [address] [place] Eosinophils (Bld) [#/Vol] 10*3/uL Normal <0.46 [facility] Comment on above: Order Comment: Speci men Type: BLOOD SPECIMENOrdering Facility: [facility] Address: [address] [place] [address] Performed By: #### 5 7021-8 ####[facility]ORYCLIA [id number] [address] Eosinophils/100 WBC (Bld) 0.2 % Normal [facility] Comment on above: Order Comment: Speci men Type: BLOOD SPECIMENOrdering Facility: [facility] Address: [address] [place] [address] Performed By: #### 5 7021-8 ####[facility]ORYCLIA [id number] [address] [place] Erythrocyte distribution width (RBC) [Ratio] 16.7 % High 11.5-15.0 [facility] Comment on above: Order Comment: Speci men Type: BLOOD SPECIMENOrdering Facility: [facility] Address: [address] [place] [address] Performed By: #### 5 7021-8 ####[facility]ORYCLIA [id number] [address] Hematocrit (Bld) [Volume fraction] 32.8 % Low 39.0-51.0 [facility] Comment on above: Order Comment: Speci men Type: BLOOD SPECIMENOrdering Facility: [facility] Address: [address] [place] [address] Performed By: #### 5 7021-8 ####[facility]ORYCLIA [id number] [address] [place] Hemoglobin (Bld) [Mass/Vol] 9.7 g/dL Low 13.0-17.0 [facility] Comment on above: Order Comment: Speci men Type: BLOOD SPECIMENOrdering Facility: [facility] Address: [address] [place] [address] Performed By: #### 5 7021-8 ####[facility]ORYCLIA [id number] [address] [place] IMMATURE GRAN % 0.7 % Normal [facility] Comment on above: Order Comment: Speci men Type: BLOOD SPECIMENOrdering Facility: [facility] Address: [address] [place] [address] Performed By: #### 5 7021-8 ####[facility]ORYCLIA [id number] [address] IMMATURE GRAN ABS 0.09 k/uL Normal <0.10 [facility] Comment on above: Order Comment: Speci men Type: BLOOD SPECIMENOrdering Facility: [facility] Address: [address] [place] [address] Performed By: #### 5 7021-8 ####[facility]ORYCLIA [id number] [address] Lymphocytes (Bld) [#/Vol] 1.94 10*3/uL Normal 1.00-4.00 [facility] Comment on above: Order Comment: Speci men Type: BLOOD SPECIMENOrdering Facility: [facility] Address: [address] [place] [address] Performed By: #### 5 7021-8 ####[facility]ORYCLIA [id number] [address] Lymphocytes/100 WBC (Bld) 14.6 % Normal [facility] Comment on above: Order Comment: Speci men Type: BLOOD SPECIMENOrdering Facility: [facility] Address: [address] [place] [address] Performed By: #### 5 7021-8 ####[facility]ORYCLIA [id number] [address] MCH (RBC) [Entitic mass] 27.2 pg Normal 26.0-34.0 [facility] Comment on above: Order Comment: Speci men Type: BLOOD SPECIMENOrdering Facility: [facility] Address: [address] [place] [address] Performed By: #### 5 7021-8 ####[facility]ATORYCLIA [id number] [place] [address] [place] MCHC (RBC) [Mass/Vol] 29.6 g/dL Low 30.5-36.0 [facility] Comment on above: Order Comment: Speci men Type: BLOOD SPECIMENOrdering Facility: [facility] Address: [address] [place] [address] Performed By: #### 5 7021-8 ####[facility]ORYCLIA [id number] [place] [address] [place] MCV (RBC) [Entitic vol] 92.1 fL Normal 80.0-100.0 [facility] Comment on above: Order Comment: Speci men Type: BLOOD SPECIMENOrdering Facility: [facility] Address: [address] [place] [address] Performed By: #### 5 7021-8 ####[facility]ORYCLIA [id number] [address] [place] Monocytes (Bld) [#/Vol] 0.74 10*3/uL Normal <0.87 [facility] Comment on above: Order Comment: Speci men Type: BLOOD SPECIMENOrdering Facility: [facility] Address: [address] [place] [address] Performed By: #### 5 7021-8 ####[facility]ORYCLIA [id number] [address] Monocytes/100 WBC (Bld) 5.6 % Normal [facility] Comment on above: Order Comment: Speci men Type: BLOOD SPECIMENOrdering Facility: [facility] Address: [address] [place] [address] Performed By: #### 5 7021-8 ####[facility]ORYCLIA [id number] [address] [place] Neutrophils (Bld) [#/Vol] 10.43 10*3/uL High 1.45-7.50 [facility] Comment on above: Order Comment: Speci men Type: BLOOD SPECIMENOrdering Facility: [facility] Address: [address] [place] [address] Performed By: #### 5 7021-8 ####[facility]ORYCLIA [id number] [address] Neutrophils/100 WBC (Bld) 78.4 % Normal [facility] Comment on above: Order Comment: Speci men Type: BLOOD SPECIMENOrdering Facility: [facility] Address: [address] [place] [address] Performed By: #### 5 7021-8 ####[facility]ORYCLIA [id number] [address] [place] Nucleated RBC (Bld) [#/Vol] 10*3/uL Normal <0.01 [facility] Comment on above: Order Comment: Speci men Type: BLOOD SPECIMENOrdering Facility: [facility] Address: [address] [place] [address] Performed By: #### 5 7021-8 ####[facility]ORYCLIA [id number] [address] Nucleated RBC/100 WBC (Bld) [Ratio] 0.0 /100 WBC Normal [facility] Comment on above: Order Comment: Speci men Type: BLOOD SPECIMENOrdering Facility: [facility] Address: [address] [place] [address] Performed By: #### 5 7021-8 ####[facility]ORYCLIA [id number] [address] [place] Platelet mean volume (Bld) [Entitic vol] 11.0 fL Normal 9.0-12.7 [facility] Comment on above: Order Comment: Speci men Type: BLOOD SPECIMENOrdering Facility: [facility] Address: [address] [place] [address] Performed By: #### 5 7021-8 ####[facility]ATORYCLIA [id number] [address] [place] Platelets (Bld) [#/Vol] 381 10*3/uL Normal 150-400 [facility] Comment on above: Order Comment: Speci men Type: BLOOD SPECIMENOrdering Facility: [facility] Address: [address] [place] [address] Performed By: #### 5 7021-8 ####[facility]ORYCLIA [id number] [address] [facility] RBC (Bld) [#/Vol] 3.56 10*6/uL Low 4.20-6.00 [facility] Comment on above: Order Comment: Speci men Type: BLOOD SPECIMENOrdering Facility: [facility] Address: [address] [place] [address] Performed By: #### 5 7021-8 ####[facility]ORYCLIA [id number] [address] OF [facility] WBC (Bld) [#/Vol] 13.29 10*3/uL High 3.70-11.00 [facility] Comment on above: Order Comment: Speci men Type: BLOOD SPECIMENOrdering Facility: [facility] Address: [address] [place] [address] Performed By: #### 5 7021-8 ####[facility]ORYCLIA [id number] [address] CONSULT PROGon 07-23-2021 CONSULT PROG Normal [facility] CONSULT PROG Normal [facility] CSF MANUAL DIFFon 07-23-2021 DIF TTL, CSF 100 cells counted Normal [facility] Comment on above: Order Comment: Speci men Type: CEREBROSPINAL FLUIDOrdering Facility: [facility] Address: [address] [place] [address] Performed By: #### L [id number], OKF5106, 76294-1 ####[facility]ORYCLIA [id number] [address] [place] LYMPH%, CSF 2 % Low 50-90 [facility] Comment on above: Order Comment: Speci men Type: CEREBROSPINAL FLUIDOrdering Facility: [facility] Address: [address] [place] [address] Performed By: #### L [id number], AOW5991, 07935-1 ####[facility]ORYCLIA [id number] [place] [address] [place] MONO%, CSF 9 % Low 10-50 [facility] Comment on above: Order Comment: Speci men Type: CEREBROSPINAL FLUIDOrdering Facility: [facility] Address: [address] [place] [address] Performed By: #### L [id number], OZX3458, 96085-0 ####[facility]ORYCLIA [id number] [place] [address] [place] NEUT%, CSF 89 % High 0-3 [facility] Comment on above: Order Comment: Speci men Type: CEREBROSPINAL FLUIDOrdering Facility: [facility] Address: [address] [place] [address] Performed By: #### L SZ2317, GJG5538, 43436-5 ####[facility]ORYCLIA [id number] [address] CSF PATHOLOGIST INTERP (LAB REFLEX ORDER-NO BILL)on 07-23-2021 CSF STAFF REVIEW Negative for maligna nt cells. Numerous bacterial organisms present, cocci in pairs and chains. Recommend correlation with CSF culture results. Normal [facility] Comment on above: Order Comment: Speci men Type: CEREBROSPINAL FLUIDOrdering Facility: [facility] Address: [address] [place] [address] Performed By: #### L [id number], RLD0126, 50016-6 ####[facility]ORYCLIA [id number] [address] Pathologist name Reviewed by Amador Stevens MD [facility] Comment on above: Order Comment: Speci men Type: CEREBROSPINAL FLUIDOrdering Facility: [facility] Address: [address] [place] [address] Performed By: #### L [id number], XHZ7228, 22337-6 ####[facility]ORYCLIA [id number] [address] BRAIN WO IVCONon 07-24-19 CT BRAIN WO IVCON Normal [facility] Cell count panel (CSF)on Clarity (CSF) Clear Normal Clear [facility] Comment on above: Order Comment: Speci men Type: CEREBROSPINAL FLUIDOrdering Facility: [facility] Address: [address] [place] [address] Performed By: #### L [id number], FTR9239, 26051-8 ####[facility]ORYCLIA [id number] [address] Clarity (Unsp spec) Not Indicated Normal Clear [facility] Comment on above: Order Comment: Speci men Type: CEREBROSPINAL FLUIDOrdering Facility: [facility] Address: [address] [place] [address] Performed By: #### L [id number], YGM5582, 68045-5 ####[facility]ORYCLIA [id number] [address] Color (CSF) Colorless Normal Colorless [facility] Comment on above: Order Comment: Speci men Type: CEREBROSPINAL FLUIDOrdering Facility: [facility] Address: [address] [place] [address] Performed By: #### L ID1992, PGJ6554, 87680-7 ####[facility]ORYCLIA [id number] [address] Color (Spun CSF) Not Indicated Normal Colorless [facility] Comment on above: Order Comment: Speci men Type: CEREBROSPINAL FLUIDOrdering Facility: [facility] Address: [address] [place] [address] Performed By: #### L [id number], NMA5782, 66180-1 ####[facility]ORYCLIA [id number] [address] CSF TUBE NUMBER [employer] Normal [facility] Comment on above: Order Comment: Speci men Type: CEREBROSPINAL FLUIDOrdering Facility: [facility] Address: [address] [place], [place] [address] Performed By: #### L [id number], RJA9022, 55201-1 ####[facility]ORYCLIA [id number] [address] RBC Manual cnt (CSF) [#/Vol] 7 cells/uL High 0-5 [facility] Comment on above: Order Comment: Speci men Type: CEREBROSPINAL FLUIDOrdering Facility: [facility] Address: [address] [place] [address] Performed By: #### L HE2707, WVI2056, 91721-4 ####[facility]ORYCLIA [id number] [address] WBC Manual cnt (CSF) [#/Vol] 193 cells/uL High 0-5 [facility] Comment on above: Order Comment: Speci men Type: CEREBROSPINAL FLUIDOrdering Facility: [facility] Address: [address] [place] [address] Performed By: #### L PM8091, IRF7644, 28197-4 ####[facility]ORYCLIA [id number] [address] [place] Glucose CSF-ncon 2 Glucose (CSF) [Mass/Vol] 81 mg/dL High 40-70 [facility] Comment on above: Order Comment: Speci men Type: CEREBROSPINAL FLUIDOrdering Facility: [facility] Address: [address] [place] [address] Result Comment: Lumb ar CSF glucose values of healthy patients are approximately 60% of the plasma values and must always be compared with a concurrently measured plasma value for adequate clinical interpretation.References: 1. Glucose HK (GLUC3) [package insert V 12.0 Fijian]. [employer], [place], [place]. September 2015. 2. Michelle Moore, Loki H. (2015). Chapter 7: Glucose and Lactate. Marianela Rothman.(eds.), Cerebrospinal Fluid in Clinical Neurology. [place]: [employer]. Performed By: #### 2 342-4, 2880-3 ####[facility]ORYCLIA [id number] [address] [place] NURSING PROGon 07-23-2021 NURSING PROG Normal [facility] NURSING PROG Normal [facility] Prot CSF-mCncon 07-23-2021 Protein (CSF) [Mass/Vol] 68 mg/dL High 15-45 [facility] Comment on above: Order Comment: Speci men Type: CEREBROSPINAL FLUIDOrdering Facility: [facility] Address: [address] [place] [address] Performed By: #### 2 342-4, 2880-3 ####[facility]ORYCLIA [id number] [address] Urinalysis complete panel (U )on 07-23-2021 Bilirubin Ql (U) Negative Normal Negative [facility] Comment on above: Order Comment: Speci men Type: URINE SPECIMENOrdering Facility: [facility] Address: [address] [place] [address] Performed By: #### 2 4356-8 ####[facility]ORYCLIA [id number] [address] [place] Clarity (Unsp spec) Clear Normal Clear [facility] Comment on above: Order Comment: Speci men Type: URINE SPECIMENOrdering Facility: [facility] Address: [address] [place] [address] Performed By: #### 2 4356-8 ####[facility]ORYCLIA [id number] [address] Color (U) Light Yellow Normal yellow [facility] Comment on above: Order Comment: Speci men Type: URINE SPECIMENOrdering Facility: [facility] Address: [address] [place] [address] Performed By: #### 2 4356-8 ####[facility]ORYCLIA [id number] [address] [place] Glucose Test strip (U) [Mass/Vol] Negative Normal Negative [facility] Comment on above: Order Comment: Speci men Type: URINE SPECIMENOrdering Facility: [facility] Address: [address] [place] [address] Performed By: #### 2 4356-8 ####[facility]ATORYCLIA [id number] [address] Hemoglobin Ql (U) Negative Normal Negative [facility] Comment on above: Order Comment: Speci men Type: URINE SPECIMENOrdering Facility: [facility] Address: [address] [place] [address] Performed By: #### 2 4356-8 ####[facility]ORATORYCLIA [id number] [address] [place] Ketones Ql (U) Negative Normal Negative [facility] Comment on above: Order Comment: Speci men Type: URINE SPECIMENOrdering Facility: [facility] Address: [address] [place] [address] Performed By: #### 2 4356-8 ####[facility]ORYCLIA [id number] [address] [place] Leukocyte esterase Test strip Ql (U) Negative Normal Negative [facility] Comment on above: Order Comment: Speci men Type: URINE SPECIMENOrdering Facility: [facility] Address: [address] [place] [address] Performed By: #### 2 4356-8 ####[facility]ORATORYCLIA [id number] [address] [place] Nitrite Ql (U) Negative Normal Negative [facility] Comment on above: Order Comment: Speci men Type: URINE SPECIMENOrdering Facility: [facility] Address: [address] [place] [address] Performed By: #### 2 4356-8 ####[facility] [facility]ATORYCLIA [id number] [address] [place] pH (U) 6.0 [pH] Normal 5.0-8.0 [facility] Comment on above: Order Comment: Speci men Type: URINE SPECIMENOrdering Facility: [facility] Address: [address] [place] [address] Performed By: #### 2 4356-8 ####[facility]ORYCLIA [id number] [address] Protein (U) [Mass/Vol] 1+ Abnormal Negative [facility] Comment on above: Order Comment: Speci men Type: URINE SPECIMENOrdering Facility: [facility] Address: [address] [place] [address] Performed By: #### 2 4356-8 ####[facility]ATORYCLIA [id number] [address] RBC LM.HPF (Urine sed) [#/Area] 0-3 /HPF Normal 0-3 /HPF [facility] Comment on above: Order Comment: Speci men Type: URINE SPECIMENOrdering Facility: [facility] Address: [address] [place] [address] Performed By: #### 2 4356-8 ####[facility]ORYCLIA [id number] [address] Specific gravity (U) [Rel density] 1.018 Normal 1.005-1.030 [facility] Comment on above: Order Comment: Speci men Type: URINE SPECIMENOrdering Facility: [facility] Address: [address] [place] [address] Performed By: #### 2 4356-8 ####[facility]ORYCLIA [id number] [address] Urobilinogen Ql (U) Normal Normal Negative [facility] Comment on above: Order Comment: Speci men Type: URINE SPECIMENOrdering Facility: [facility] Address: [address] [place] [address] Performed By: #### 2 4356-8 ####[facility]ORYCLIA [id number] [address] [place] WBC LM.HPF (Urine sed) [#/Area] 0-5 /HPF Normal 0-5 /HPF [facility] Comment on above: Order Comment: Speci men Type: URINE SPECIMENOrdering Facility: [facility] Address: [address] [place] [address] Performed By: #### 2 4356-8 ####[facility]ATORYCLIA [id number] [address] Vancomycin random [Mass/Vol] on 07-23-2021 Vancomycin [Mass/Vol] 12.9 ug/mL Normal 10.0-20.0 [facility] Comment on above: Order Comment: Speci men Type: BLOOD SPECIMENOrdering Facility: [facility] Address: [address] [place] [address] Result Comment: Refe rence ranges and high/low indicator flags are provided as general guidelines only. The treating physician must determine appropriate target levels/dosing based on the specific clinical situation. Performed By: #### 4 091-5 ####[facility]ATORYCLIA [id number] [address] [facility] XR CHEST 1V FRONTALon 2021 XR CHEST 1V FRONTAL Normal [facility] XR CHEST 1V FRONTAL Normal [facility] aPTT PPPon 07-23-2021 aPTT Coag (PPP) [Time] 32.3 s Normal 23.0-32.4 [facility] Comment on above: Order Comment: Speci men Type: BLOOD SPECIMENOrdering Facility: [facility] Address: [address] [address] Performed By: #### 1 4979-9 ####[facility]ATORYCLIA [id number] [address] aPTT Coag (PPP) [Time] 57.9 s High 23.0-32.4 [facility] Comment on above: Order Comment: Speci men Type: BLOOD SPECIMENOrdering Facility: [facility] Address: [address] [place] [address] Performed By: #### 1 4979-9 ####[facility]ATORYCLIA [id number] [place] [address] [place] aPTT Coag (PPP) [Time] 46.3 s High 23.0-32.4 [facility] Comment on above: Order Comment: Speci men Type: BLOOD SPECIMENOrdering Facility: [facility] Address: [address] [place] [address] Performed By: #### 1 4979-9 ####[facility]ATORYCLIA [id number] [place] [address] [place] Basic metabolic 2000 panelon 07-22-2021 Anion gap [Moles/Vol] 8 mmol/L Low 9-18 [facility] Comment on above: Order Comment: Speci men Type: BLOOD SPECIMENOrdering Facility: [facility] Address: [address] [place] [address] Performed By: #### 2 4321-2 ####[facility]ATORYCLIA [id number] [place] [address] [place] Calcium [Mass/Vol] 9.5 mg/dL Normal 8.5-10.2 [facility] Comment on above: Order Comment: Speci men Type: BLOOD SPECIMENOrdering Facility: [facility] Address: [address] [place] [address] Performed By: #### 2 4321-2 ####[facility]ORYCLIA [id number] [address] [place] Chloride [Moles/Vol] 105 mmol/L Normal 97-105 [facility] Comment on above: Order Comment: Speci men Type: BLOOD SPECIMENOrdering Facility: [facility] Address: [address] [place] [address] Performed By: #### 2 4321-2 ####[facility]ORYCLIA [id number] [place] [address] [place] CO2 [Moles/Vol] 32 mmol/L High 22-30 [facility] Comment on above: Order Comment: Speci men Type: BLOOD SPECIMENOrdering Facility: [facility] Address: [address] [place] [address] Performed By: #### 2 4321-2 ####[facility]ORYCLIA [id number] [address] [place] [facility] Creatinine [Mass/Vol] 0.75 mg/dL Normal 0.73-1.22 [facility] Comment on above: Order Comment: Shira feldman Type: BLOOD SPECIMENOrdering Facility: [facility] Address: [address] [place] [address] Performed By: #### 2 4321-2 ####[facility]ORYCLIA [id number] [address] ESTIMATED GLOMERULAR FILTRATION RATE 98 mL/min/1.73m??? Normal >=60 [facility] Comment on above: Order Comment: Shira feldman Type: BLOOD SPECIMENOrdering Facility: [facility] Address: [address] [place] [address] Result Comment: Luzmaria mated Glomerular Filtration Rate [...] actual GFR. Performed By: #### 2 4321-2 ####[facility]ORYCLIA [id number] [address] [place] [facility] Glucose [Mass/Vol] 128 mg/dL High 74-99 [facility] Comment on above: Order Comment: Shira francia Type: BLOOD SPECIMENOrdering Facility: [facility] Address: [address] [place] [address] Result Comment: [employer] [place] [employer] [...] 2016.39(Suppl 1). Performed By: #### 2 4321-2 ####[facility]ATORYCLIA [id number] [address] [place] [facility] Potassium [Moles/Vol] 3.7 mmol/L Normal 3.7-5.1 [facility] Comment on above: Order Comment: Speci men Type: BLOOD SPECIMENOrdering Facility: [facility] Address: [address] [place] [address] Performed By: #### 2 4321-2 ####[facility]ORYCLIA [id number] [address] Sodium [Moles/Vol] 145 mmol/L High 136-144 [facility] Comment on above: Order Comment: Shira feldman Type: BLOOD SPECIMENOrdering Facility: [facility] Address: [address] [place] [address] Performed By: #### 2 4321-2 ####[facility]ORYCLIA [id number] [address] Urea nitrogen [Mass/Vol] 39 mg/dL High 9-24 [facility] Comment on above: Order Comment: Shira feldman Type: BLOOD SPECIMENOrdering Facility: [facility] Address: [address] [place] [address] Performed By: #### 2 4321-2 ####[facility]ORYCLIA [id number] [address] [place] CASE MANAGEMon 07-22-2021 CASE MANAGEM Normal [facility] CBC W Auto Differential pane l (Bld)on 07-22-2021 Basophils (Bld) [#/Vol] 0.06 10*3/uL Normal <0.11 [facility] Comment on above: Order Comment: Speci men Type: BLOOD SPECIMENOrdering Facility: [facility] Address: [address] [address] Performed By: #### 5 7021-8 ####[facility]ORYCLIA [id number] [address] [place] [facility] Basophils/100 WBC (Bld) 0.5 % Normal [facility] Comment on above: Order Comment: Speci men Type: BLOOD SPECIMENOrdering Facility: [facility] Address: [address] [place] [address] Performed By: #### 5 7021-8 ####[facility]ORYCLIA [id number] [address] Differential cell count method Nom (Bld) Auto Normal [facility] Comment on above: Order Comment: Speci men Type: BLOOD SPECIMENOrdering Facility: [facility] Address: [address] [place] [address] Performed By: #### 5 7021-8 ####[facility]ORYCLIA [id number] [address] [place] Eosinophils (Bld) [#/Vol] 0.44 10*3/uL Normal <0.46 [facility] Comment on above: Order Comment: Speci men Type: BLOOD SPECIMENOrdering Facility: [facility] Address: [address] [place] [address] Performed By: #### 5 7021-8 ####[facility]ORYCLIA [id number] [address] Eosinophils/100 WBC (Bld) 3.9 % Normal [facility] Comment on above: Order Comment: Speci men Type: BLOOD SPECIMENOrdering Facility: [facility] Address: [address] [place] [address] Performed By: #### 5 7021-8 ####[facility]ORYCLIA [id number] [address] [place] Erythrocyte distribution width (RBC) [Ratio] 17.0 % High 11.5-15.0 [facility] Comment on above: Order Comment: Speci men Type: BLOOD SPECIMENOrdering Facility: [facility] Address: [address] [place] [address] Performed By: #### 5 7021-8 ####[facility]ATORYCLIA [id number] [address] Hematocrit (Bld) [Volume fraction] 32.0 % Low 39.0-51.0 [facility] Comment on above: Order Comment: Speci men Type: BLOOD SPECIMENOrdering Facility: [facility] Address: [address] [place] [address] Performed By: #### 5 7021-8 ####[facility]ORYCLIA [id number] [address] Hemoglobin (Bld) [Mass/Vol] 9.3 g/dL Low 13.0-17.0 [facility] Comment on above: Order Comment: Speci men Type: BLOOD SPECIMENOrdering Facility: [facility] Address: [address] [place] [address] Performed By: #### 5 7021-8 ####[facility]ORYCLIA [id number] [address] IMMATURE GRAN % 0.5 % Normal [facility] Comment on above: Order Comment: Speci men Type: BLOOD SPECIMENOrdering Facility: [facility] Address: [address] [place] [address] Performed By: #### 5 7021-8 ####[facility]ORYCLIA [id number] [address] IMMATURE GRAN ABS 0.06 k/uL Normal <0.10 [facility] Comment on above: Order Comment: Speci men Type: BLOOD SPECIMENOrdering Facility: [facility] Address: [address] [place] [address] Performed By: #### 5 7021-8 ####[facility]ORYCLIA [id number] [address] Lymphocytes (Bld) [#/Vol] 1.83 10*3/uL Normal 1.00-4.00 [facility] Comment on above: Order Comment: Speci men Type: BLOOD SPECIMENOrdering Facility: [facility] Address: [address] [place] [address] Performed By: #### 5 7021-8 ####[facility]ORYCLIA [id number] [address] Lymphocytes/100 WBC (Bld) 16.1 % Normal [facility] Comment on above: Order Comment: Speci men Type: BLOOD SPECIMENOrdering Facility: [facility] Address: [address] [place] [address] Performed By: #### 5 7021-8 ####[facility]ORYCLIA [id number] [address] [place] [facility] MCH (RBC) [Entitic mass] 27.0 pg Normal 26.0-34.0 [facility] Comment on above: Order Comment: Speci men Type: BLOOD SPECIMENOrdering Facility: [facility] Address: [address] [place] [address] Performed By: #### 5 7021-8 ####[facility]ORYCLIA [id number] [address] MCHC (RBC) [Mass/Vol] 29.1 g/dL Low 30.5-36.0 [facility] Comment on above: Order Comment: Speci men Type: BLOOD SPECIMENOrdering Facility: [facility] Address: [address] [place] [address] Performed By: #### 5 7021-8 ####[facility]ORYCLIA [id number] [address] MCV (RBC) [Entitic vol] 92.8 fL Normal 80.0-100.0 [facility] Comment on above: Order Comment: Speci men Type: BLOOD SPECIMENOrdering Facility: [facility] Address: [address] [place] [address] Performed By: #### 5 7021-8 ####[facility]ATORYCLIA [id number] [place] [address] [place] Monocytes (Bld) [#/Vol] 0.87 10*3/uL High <0.87 [facility] Comment on above: Order Comment: Speci men Type: BLOOD SPECIMENOrdering Facility: [facility] Address: [address] [place] [address] Performed By: #### 5 7021-8 ####[facility]ATORYCLIA [id number] [place] [address] [place] Monocytes/100 WBC (Bld) 7.6 % Normal [facility] Comment on above: Order Comment: Speci men Type: BLOOD SPECIMENOrdering Facility: [facility] Address: [address] [place] [address] Performed By: #### 5 7021-8 ####[facility]ATORYCLIA [id number] [place] [address] [place] Neutrophils (Bld) [#/Vol] 8.12 10*3/uL High 1.45-7.50 [facility] Comment on above: Order Comment: Speci men Type: BLOOD SPECIMENOrdering Facility: [facility] Address: [address] [place] [address] Performed By: #### 5 7021-8 ####[facility]ORYCLIA [id number] [address] [place] Neutrophils/100 WBC (Bld) 71.4 % Normal [facility] Comment on above: Order Comment: Speci men Type: BLOOD SPECIMENOrdering Facility: [facility] Address: [address] [place] [address] Performed By: #### 5 7021-8 ####[facility]ORYCLIA [id number] [place] [address] [place] Nucleated RBC (Bld) [#/Vol] 10*3/uL Normal <0.01 [facility] Comment on above: Order Comment: Speci men Type: BLOOD SPECIMENOrdering Facility: [facility] Address: [address] [address] Performed By: #### 5 7021-8 ####[facility]ORYCLIA [id number] [address] [place] Nucleated RBC/100 WBC (Bld) [Ratio] 0.0 /100 WBC Normal [facility] Comment on above: Order Comment: Speci men Type: BLOOD SPECIMENOrdering Facility: [facility] Address: [address] [place] [address] Performed By: #### 5 7021-8 ####[facility]ORYCLIA [id number] [address] [place] Platelet mean volume (Bld) [Entitic vol] 10.8 fL Normal 9.0-12.7 [facility] Comment on above: Order Comment: Speci men Type: BLOOD SPECIMENOrdering Facility: [facility] Address: [address] [place] [address] Performed By: #### 5 7021-8 ####[facility]ORYCLIA [id number] [place] [address] [place] Platelets (Bld) [#/Vol] 362 10*3/uL Normal 150-400 [facility] Comment on above: Order Comment: Speci men Type: BLOOD SPECIMENOrdering Facility: [facility] Address: [address] [place] [address] Performed By: #### 5 7021-8 ####[facility]ORYCLIA [id number] [place] [address] [place] RBC (Bld) [#/Vol] 3.45 10*6/uL Low 4.20-6.00 [facility] Comment on above: Order Comment: Speci men Type: BLOOD SPECIMENOrdering Facility: [facility] Address: [address] [place] [address] Performed By: #### 5 7021-8 ####[facility]ORYCLIA [id number] [address] [place] WBC (Bld) [#/Vol] 11.38 10*3/uL High 3.70-11.00 [facility] Comment on above: Order Comment: Speci men Type: BLOOD SPECIMENOrdering Facility: [facility] Address: [address] [place] [address] Performed By: #### 5 7021-8 ####[facility]ATORYCLIA [id number] [address] Magnesium SerPl-mCncon 07-22 Magnesium [Mass/Vol] 2.3 mg/dL Normal 1.7-2.3 [facility] Comment on above: Order Comment: Speci men Type: BLOOD SPECIMENOrdering Facility: [facility] Address: [address] [place] [address] Performed By: #### 1 9123-9, 2777-1, 17931-7 ####[facility]ATORYCLIA [id number] [address] NT-proBNP SerPl-ncon 07-22 Natriuretic peptide.B prohormone N-Terminal [Mass/Vol] 328 pg/mL High <125 [facility] Comment on above: Order Comment: Speci men Type: BLOOD SPECIMENOrdering Facility: [facility] Address: [address] [place] [address] Performed By: #### 1 9123-9, 2777-1, 27766-9 ####[facility]ATORYCLIA [id number] [address] [place] NURSING PROGon 07-22-2021 NURSING PROG Normal [facility] NUTRITIONon 07-22-2021 NUTRITION Normal [facility] Phosphate SerPl-mCncon 07-22 Phosphate [Mass/Vol] 3.5 mg/dL Normal 2.7-4.8 [facility] Comment on above: Order Comment: Speci men Type: BLOOD SPECIMENOrdering Facility: [facility] Address: [address] [place] [address] Performed By: #### 1 9123-9, 2777-1, 69552-3 ####[facility]ATORYCLIA [id number] [address] THERAPY NTon 07-22-2021 THERAPY NT Normal [facility] THERAPY NT Normal [facility] aPTT PPPon 07-22-2021 aPTT Coag (PPP) [Time] 50.1 s High 23.0-32.4 [facility] Comment on above: Order Comment: Speci men Type: BLOOD SPECIMENOrdering Facility: [facility] Address: [address] [place] [address] Performed By: #### 1 4979-9 ####[facility]ORYCLIA [id number] [address] [facility] ALLIED HEALTHon 07-21-2021 ALLIED HEALTH Normal [facility] Bacteria Spec Resp Culton Bacteria identified Respiratory culture Nom (Unsp spec) Abnormal [facility] Comment on above: Performed By: #### 3 2355-0 ####[facility]ORYCLIA [id number] [address] [place] Basic metabolic 2000 panelon 07-21-2021 Anion gap [Moles/Vol] 9 mmol/L Normal - [facility] Comment on above: Order Comment: Speci men Type: BLOOD SPECIMENOrdering Facility: [facility] Address: [address] [place] [address] Performed By: #### 1 9123-9, 2777-, 53752-1 ####[facility]ORYCLIA [id number] [address] [place] Calcium [Mass/Vol] 9.9 mg/dL Normal 8.5-10.2 [facility] Comment on above: Order Comment: Speci men Type: BLOOD SPECIMENOrdering Facility: [facility] Address: [facility] [place] [address] Performed By: #### 1 9123-9, 2777-1, 34641-6 ####[facility]ORYCLIA [id number] [address] [place] Chloride [Moles/Vol] 103 mmol/L Normal 97-105 [facility] Comment on above: Order Comment: Speci francia Type: BLOOD SPECIMENOrdering Facility: [facility] Address: [address] [place] [address] Performed By: #### 1 9123-9, 2777-1, 36552-9 ####[facility]ORYCLIA [id number] [address] [place] CO2 [Moles/Vol] 33 mmol/L High 22-30 [facility] Comment on above: Order Comment: Speci men Type: BLOOD SPECIMENOrdering Facility: [facility] Address: [address] [place] [address] Performed By: #### 1 9123-9, 2777-1, 38112-2 ####[facility] [id number] [address] Creatinine [Mass/Vol] 0.80 mg/dL Normal 0.73-1.22 [facility] Comment on above: Order Comment: Speci men Type: BLOOD SPECIMENOrdering Facility: [facility] Address: [address] [place] [address] Performed By: #### 1 9123-9, 2777-1, 47446-9 ####[facility]ORYCLIA [id number] [address] ESTIMATED GLOMERULAR FILTRATION RATE 96 mL/min/1.73m??? Normal >=60 [facility] Comment on above: Order Comment: Speci men Type: BLOOD SPECIMENOrdering Facility: [facility] Address: [address] [place] [address] Result Comment: Luzmaria mated Glomerular Filtration Rate [...] GFR. Performed By: #### 1 9123-9, 2777-, 61167-6 ####[facility]ATORYCLIA [id number] [place] [address] [place] Glucose [Mass/Vol] 148 mg/dL High 74-99 [facility] Comment on above: Order Comment: Shira feldman Type: BLOOD SPECIMENOrdering Facility: [facility] Address: [address] [place] [address] Result Comment: [employer] [place] [employer] [...] 1). Performed By: #### 1 9123-9, 2777-, 53823-7 ####[facility]ITALCLIA [id number] [place] [address] [place] Potassium [Moles/Vol] 4.1 mmol/L Normal 3.7-5.1 [facility] Comment on above: Order Comment: Shira feldman Type: BLOOD SPECIMENOrdering Facility: [facility] Address: [address] [id number] Performed By: #### 1 9123-9, 2777-, 42311-6 ####[facility]ORYCLIA [id number] [place] [address] [place] Sodium [Moles/Vol] 145 mmol/L High 136-144 [facility] Comment on above: Order Comment: Shira feldman Type: BLOOD SPECIMENOrdering Facility: [facility] Address: [address] [address] Performed By: #### 1 9123-9, 2777-1, 05906-5 ####[facility]ORYCLIA [id number] [address] [facility] Urea nitrogen [Mass/Vol] 40 mg/dL High 9-24 [facility] Comment on above: Order Comment: Speci men Type: BLOOD SPECIMENOrdering Facility: [facility] Address: [address] [place] [address] Performed By: #### 1 9123-9, 2777-1, 49751-1 ####[facility]ORYCLIA [id number] [address] CBC W Auto Differential pane l (Bld)on 07-21-2021 Basophils (Bld) [#/Vol] 0.06 10*3/uL Normal <0.11 [facility] Comment on above: Order Comment: Speci men Type: BLOOD SPECIMENOrdering Facility: [facility] Address: [address] [place] [address] Performed By: #### 5 7021-8 ####[facility]ORYCLIA [id number] [address] [place] [facility] Basophils/100 WBC (Bld) 0.4 % Normal [facility] Comment on above: Order Comment: Speci men Type: BLOOD SPECIMENOrdering Facility: [facility] Address: [address] [place] [address] Performed By: #### 5 7021-8 ####[facility]ORYCLIA [id number] [address] Differential cell count method Nom (Bld) Auto Normal [facility] Comment on above: Order Comment: Speci men Type: BLOOD SPECIMENOrdering Facility: [facility] Address: [address] [place] [address] Performed By: #### 5 7021-8 ####[facility]ORYCLIA [id number] [address] [place] Eosinophils (Bld) [#/Vol] 0.04 10*3/uL Normal <0.46 [facility] Comment on above: Order Comment: Speci men Type: BLOOD SPECIMENOrdering Facility: [facility] Address: [address] [place] [address] Performed By: #### 5 7021-8 ####[facility]ORYCLIA [id number] [address] [place] Eosinophils/100 WBC (Bld) 0.3 % Normal [facility] Comment on above: Order Comment: Speci men Type: BLOOD SPECIMENOrdering Facility: [facility] Address: [address] [place] [address] Performed By: #### 5 7021-8 ####[facility]ATORYCLIA [id number] [address] [facility] Erythrocyte distribution width (RBC) [Ratio] 17.0 % High 11.5-15.0 [facility] Comment on above: Order Comment: Speci men Type: BLOOD SPECIMENOrdering Facility: [facility] Address: [address] [place] [address] Performed By: #### 5 7021-8 ####[facility]ATORYCLIA [id number] [address] [place] Hematocrit (Bld) [Volume fraction] 33.1 % Low 39.0-51.0 [facility] Comment on above: Order Comment: Speci men Type: BLOOD SPECIMENOrdering Facility: [facility] Address: [address] [place] [address] Performed By: #### 5 7021-8 ####[facility]ORYCLIA [id number] [address] [place] Hemoglobin (Bld) [Mass/Vol] 9.7 g/dL Low 13.0-17.0 [facility] Comment on above: Order Comment: Speci men Type: BLOOD SPECIMENOrdering Facility: [facility] Address: [address] [place] [address] Performed By: #### 5 7021-8 ####[facility]ATORYCLIA [id number] [address] IMMATURE GRAN % 0.5 % Normal [facility] Comment on above: Order Comment: Speci men Type: BLOOD SPECIMENOrdering Facility: [facility] Address: [address] [place] [address] Performed By: #### 5 7021-8 ####[facility]ORYCLIA [id number] [address] IMMATURE GRAN ABS 0.07 k/uL Normal <0.10 [facility] Comment on above: Order Comment: Speci men Type: BLOOD SPECIMENOrdering Facility: [facility] Address: [address] [place] [address] Performed By: #### 5 7021-8 ####[facility]ATORYCLIA [id number] [address] Lymphocytes (Bld) [#/Vol] 1.99 10*3/uL Normal 1.00-4.00 [facility] Comment on above: Order Comment: Speci men Type: BLOOD SPECIMENOrdering Facility: [facility] Address: [address] [place] [address] Performed By: #### 5 7021-8 ####[facility]ORYCLIA [id number] [address] Lymphocytes/100 WBC (Bld) 13.4 % Normal [facility] Comment on above: Order Comment: Speci men Type: BLOOD SPECIMENOrdering Facility: [facility] Address: [address] [place] [address] Performed By: #### 5 7021-8 ####[facility]ATORYCLIA [id number] [address] MCH (RBC) [Entitic mass] 27.2 pg Normal 26.0-34.0 [facility] Comment on above: Order Comment: Speci men Type: BLOOD SPECIMENOrdering Facility: [facility] Address: [address] [place] [address] Performed By: #### 5 7021-8 ####[facility]ATORYCL[facility] [id number] [address] [place] MCHC (RBC) [Mass/Vol] 29.3 g/dL Low 30.5-36.0 [facility] Comment on above: Order Comment: Speci men Type: BLOOD SPECIMENOrdering Facility: [facility] Address: [address] [place] [address] Performed By: #### 5 7021-8 ####[facility]ATORYCL[facility] [id number] [address] [place] MCV (RBC) [Entitic vol] 92.7 fL Normal 80.0-100.0 [facility] Comment on above: Order Comment: Speci men Type: BLOOD SPECIMENOrdering Facility: [facility] Address: [address] [place] [address] Performed By: #### 5 7021-8 ####[facility]ATORYCL[facility] [id number] [address] [place] Monocytes (Bld) [#/Vol] 1.10 10*3/uL High <0.87 [facility] Comment on above: Order Comment: Speci men Type: BLOOD SPECIMENOrdering Facility: [facility] Address: [address] [place] [address] Performed By: #### 5 7021-8 ####[facility]ATORYCLIA [id number] [address] [place] [facility] Monocytes/100 WBC (Bld) 7.4 % Normal [facility] Comment on above: Order Comment: Speci men Type: BLOOD SPECIMENOrdering Facility: [facility] Address: [address] [place] [address] Performed By: #### 5 7021-8 ####[facility]ATORYCLIA [id number] [place] [address] [place] Neutrophils (Bld) [#/Vol] 11.61 10*3/uL High 1.45-7.50 [facility] Comment on above: Order Comment: Speci men Type: BLOOD SPECIMENOrdering Facility: [facility] Address: [address] [place] [address] Performed By: #### 5 7021-8 ####[facility]ATORYCLIA [id number] [address] Neutrophils/100 WBC (Bld) 78.0 % Normal [facility] Comment on above: Order Comment: Speci men Type: BLOOD SPECIMENOrdering Facility: [facility] Address: [address] [place] [address] Performed By: #### 5 7021-8 ####[facility]ATORYCLIA [id number] [address] [place] Nucleated RBC (Bld) [#/Vol] 10*3/uL Normal <0.01 [facility] Comment on above: Order Comment: Speci men Type: BLOOD SPECIMENOrdering Facility: [facility] Address: [address] [place] [address] Performed By: #### 5 7021-8 ####[facility]ATORYCLIA [id number] [address] Nucleated RBC/100 WBC (Bld) [Ratio] 0.0 /100 WBC Normal [facility] Comment on above: Order Comment: Speci men Type: BLOOD SPECIMENOrdering Facility: [facility] Address: [address] [place] [address] Performed By: #### 5 7021-8 ####[facility]ATORYCLIA [id number] [place] [address] [place] Platelet mean volume (Bld) [Entitic vol] 10.4 fL Normal 9.0-12.7 [facility] Comment on above: Order Comment: Speci men Type: BLOOD SPECIMENOrdering Facility: [facility] Address: [address] [place] [address] Performed By: #### 5 7021-8 ####[facility]ATORYCLIA [id number] [address] [facility] Platelets (Bld) [#/Vol] 396 10*3/uL Normal 150-400 [facility] Comment on above: Order Comment: Speci men Type: BLOOD SPECIMENOrdering Facility: [facility] Address: [address] [place] [address] Performed By: #### 5 7021-8 ####[facility]ATORYCLIA [id number] [address] [facility] RBC (Bld) [#/Vol] 3.57 10*6/uL Low 4.20-6.00 [facility] Comment on above: Order Comment: Speci men Type: BLOOD SPECIMENOrdering Facility: [facility] Address: [address] [place] [address] Performed By: #### 5 7021-8 ####[facility]ATORYCLIA [id number] [address] [facility] WBC (Bld) [#/Vol] 14.87 10*3/uL High 3.70-11.00 [facility] Comment on above: Order Comment: Speci men Type: BLOOD SPECIMENOrdering Facility: [facility] Address: [address] [place] [address] Performed By: #### 5 7021-8 ####[facility]ORYCLIA [id number] [address] Gas and Carbon monoxide pane l (BldV)on 07-21-2021 Base excess Calc (BldV) [Moles/Vol] 7 mmol/L High 0-2 [facility] Comment on above: Order Comment: Speci men Type: VENOUS BLOOD SPECIMENOrdering Facility: [facility] Address: [address] [place] [address] Performed By: #### 2 4344-4 ####[facility]ATORYCLIA [id number] [address] Body temperature 98.6 [degF] Normal [facility] Comment on above: Order Comment: Speci men Type: VENOUS BLOOD SPECIMENOrdering Facility: [facility] Address: [address] [place] [address] Performed By: #### 2 4344-4 ####[facility]ATORYCLIA [id number] [address] [place] CALCIUM IONIZED, PH CORRECTED 1.21 mmol/L Normal 1.08-1.30 [facility] Comment on above: Order Comment: Speci men Type: VENOUS BLOOD SPECIMENOrdering Facility: [facility] Address: [address] [place] [address] Performed By: #### 2 4344-4 ####[facility]ATORYCLIA [id number] [address] [facility] Calcium.ionized (BldV) [Mass/Vol] 1.23 mmol/L Normal 1.08-1.30 [facility] Comment on above: Order Comment: Speci men Type: VENOUS BLOOD SPECIMENOrdering Facility: [facility] Address: [address] [place] [address] Performed By: #### 2 4344-4 ####[facility]ATORYCLIA [id number] [address] [place] Carboxyhemoglobin (BldV) [Mass fraction] 2.3 % High 0.0-2.0 [facility] Comment on above: Order Comment: Speci men Type: VENOUS BLOOD SPECIMENOrdering Facility: [facility] Address: [address] [place] [address] Result Comment: Carb oxyhemoglobin Reference Range for Smokers: 2.0-8.0% Performed By: #### 2 4344-4 ####[facility]ATORYCLIA [id number] [address] [place] CO2 (BldV) [Partial pressure] 58 mm[Hg] High 42-55 [facility] Comment on above: Order Comment: Speci men Type: VENOUS BLOOD SPECIMENOrdering Facility: [facility] Address: [address] [place] [address] Performed By: #### 2 4344-4 ####[facility]ATORYCLIA [id number] [place] [address] [place] CO2 [Moles/Vol] 31 mmol/L High 25-29 [facility] Comment on above: Order Comment: Speci men Type: VENOUS BLOOD SPECIMENOrdering Facility: [facility] Address: [address] [place] [address] Performed By: #### 2 4344-4 ####[facility]ATORYCLIA [id number] [place] [address] [place] Glucose [Mass/Vol] 146 mg/dL High 60-105 [facility] Comment on above: Order Comment: Speci men Type: VENOUS BLOOD SPECIMENOrdering Facility: [facility] Address: [address] [place] [address] Performed By: #### 2 4344-4 ####[facility]ATORYCLIA [id number] [place] [address] [place] HCO3 (Bld) [Moles/Vol] 33 mmol/L High 24-28 [facility] Comment on above: Order Comment: Speci men Type: VENOUS BLOOD SPECIMENOrdering Facility: [facility] Address: [address] [place] [address] Performed By: #### 2 4344-4 ####[facility]ATORYCLIA [id number] [place] [address] [place] Hematocrit (Bld) [Volume fraction] 30.1 % Low 39.0-51.0 [facility] Comment on above: Order Comment: Speci men Type: VENOUS BLOOD SPECIMENOrdering Facility: [facility] Address: [address] [place] [address] Performed By: #### 2 4344-4 ####[facility]ATORYCLIA [id number] [place] [address] [place] Hemoglobin (Bld) [Mass/Vol] 9.7 g/dL Low 13.0-17.0 [facility] Comment on above: Order Comment: Speci men Type: VENOUS BLOOD SPECIMENOrdering Facility: [facility] Address: [address] [address] Performed By: #### 2 4344-4 ####[facility]ORATORYCLIA [id number] [address] [place] Methemoglobin (Bld) [Mass fraction] % Normal 0.0-1.5 [facility] Comment on above: Order Comment: Speci men Type: VENOUS BLOOD SPECIMENOrdering Facility: [facility] Address: [address] [address] Performed By: #### 2 4344-4 ####[facility]ORATORYCLIA [id number] [address] O2 THERAPY NC = Nasal Cannula Normal [facility] Comment on above: Order Comment: Speci men Type: VENOUS BLOOD SPECIMENOrdering Facility: [facility] Address: [address] [address] Performed By: #### 2 4344-4 ####[facility]ATORYCLIA [id number] [address] [place] Oxygen (BldV) [Partial pressure] 64 mm[Hg] High 35-45 [facility] Comment on above: Order Comment: Speci men Type: VENOUS BLOOD SPECIMENOrdering Facility: [facility] Address: [address] [address] Performed By: #### 2 4344-4 ####[facility]ATORYCLIA [id number] [address] [place] Oxygen saturation in Blood 90 % High 60-85 [facility] Comment on above: Order Comment: Speci men Type: VENOUS BLOOD SPECIMENOrdering Facility: [facility] Address: [address] [address] Performed By: #### 2 4344-4 ####[facility]ORATORYCLIA [id number] [address] [place] Oxyhemoglobin (BldV) [Mass fraction] 87 % High 60-85 [facility] Comment on above: Order Comment: Speci men Type: VENOUS BLOOD SPECIMENOrdering Facility: [facility] Address: [address] [place] [address] Performed By: #### 2 4344-4 ####[facility]ATORYCLIA [id number] [place] [address] [place] pH (BldV) 7.38 [pH] Normal 7.32-7.42 [facility] Comment on above: Order Comment: Speci men Type: VENOUS BLOOD SPECIMENOrdering Facility: [facility] Address: [address] [place] [address] Performed By: #### 2 4344-4 ####[facility]ATORYCLIA [id number] [place] [address] [place] Potassium [Moles/Vol] 3.8 mmol/L Normal 3.5-5.0 [facility] Comment on above: Order Comment: Speci men Type: VENOUS BLOOD SPECIMENOrdering Facility: [facility] Address: [address] [place] [address] Performed By: #### 2 4344-4 ####[facility]ATORYCLIA [id number] [address] [place] Sodium [Moles/Vol] 145 mmol/L High 136-144 [facility] Comment on above: Order Comment: Speci men Type: VENOUS BLOOD SPECIMENOrdering Facility: [facility] Address: [address] [place] [address] Performed By: #### 2 4344-4 ####[facility]ATORYCLIA [id number] [place] [address] [place] Base excess Calc (BldV) [Moles/Vol] 8 mmol/L High 0-2 [facility] Comment on above: Order Comment: Speci men Type: VENOUS BLOOD SPECIMENOrdering Facility: [facility] Address: [address] [place] [address] Performed By: #### 2 4344-4 ####[facility]ORYCLIA [id number] [address] Body temperature 100.22 [degF] Normal [facility] Comment on above: Order Comment: Speci men Type: VENOUS BLOOD SPECIMENOrdering Facility: [facility] Address: [address] [place] [address] Performed By: #### 2 4344-4 ####[facility]ORYCLIA [id number] [address] [facility] CALCIUM IONIZED, PH CORRECTED 1.25 mmol/L Normal 1.08-1.30 [facility] Comment on above: Order Comment: Speci men Type: VENOUS BLOOD SPECIMENOrdering Facility: [facility] Address: [address] [place] [address] Performed By: #### 2 4344-4 ####[facility]ATORYCLIA [id number] [address] [place] [facility] Calcium.ionized (BldV) [Mass/Vol] 1.24 mmol/L Normal 1.08-1.30 [facility] Comment on above: Order Comment: Speci men Type: VENOUS BLOOD SPECIMENOrdering Facility: [facility] Address: [address] [place] [address] Performed By: #### 2 4344-4 ####[facility]ORYCLIA [id number] [address] [place] Carboxyhemoglobin (BldV) [Mass fraction] 2.5 % High 0.0-2.0 [facility] Comment on above: Order Comment: Speci men Type: VENOUS BLOOD SPECIMENOrdering Facility: [facility] Address: [address] [place] [address] Result Comment: Carb oxyhemoglobin Reference Range for Smokers: 2.0-8.0% Performed By: #### 2 4344-4 ####[facility]ATORYCLIA [id number] [address] [place] CO2 (BldV) [Partial pressure] 53 mm[Hg] Normal 42-55 [facility] Comment on above: Order Comment: Speci men Type: VENOUS BLOOD SPECIMENOrdering Facility: [facility] Address: [address] [place] [address] Performed By: #### 2 4344-4 ####[facility]ATORYCLIA [id number] [address] [place] CO2 [Moles/Vol] 31 mmol/L High 25-29 [facility] Comment on above: Order Comment: Speci men Type: VENOUS BLOOD SPECIMENOrdering Facility: [facility] Address: [address] [place] [address] Performed By: #### 2 4344-4 ####[facility]ATORYCLIA [id number] [address] [place] CO2 adjusted to patient's actual temperature (BldV) [Partial pressure] 56 mmHg High 42-55 [facility] Comment on above: Order Comment: Speci men Type: VENOUS BLOOD SPECIMENOrdering Facility: [facility] Address: [address] [place] [address] Performed By: #### 2 4344-4 ####[facility]ATORYCLIA [id number] [place] [address] [place] Glucose [Mass/Vol] 131 mg/dL High 60-105 [facility] Comment on above: Order Comment: Speci men Type: VENOUS BLOOD SPECIMENOrdering Facility: [facility] Address: [address] [place] [address] Performed By: #### 2 4344-4 ####[facility]ATORYCLIA [id number] [place] [address] [place] HCO3 (Bld) [Moles/Vol] 33 mmol/L High 24-28 [facility] Comment on above: Order Comment: Speci men Type: VENOUS BLOOD SPECIMENOrdering Facility: [facility] Address: [address] [place] [address] Performed By: #### 2 4344-4 ####[facility]ATORYCLIA [id number] [place] [address] [place] Hematocrit (Bld) [Volume fraction] 30.8 % Low 39.0-51.0 [facility] Comment on above: Order Comment: Speci men Type: VENOUS BLOOD SPECIMENOrdering Facility: [facility] Address: [address] [address] Performed By: #### 2 4344-4 ####[facility]ATORYCLIA [id number] [address] [place] Hemoglobin (Bld) [Mass/Vol] 10.0 g/dL Low 13.0-17.0 [facility] Comment on above: Order Comment: Speci men Type: VENOUS BLOOD SPECIMENOrdering Facility: [facility] Address: [address] [place] [address] Performed By: #### 2 4344-4 ####[facility]ATORYCLIA [id number] [address] [place] Methemoglobin (Bld) [Mass fraction] % Normal 0.0-1.5 [facility] Comment on above: Order Comment: Speci men Type: VENOUS BLOOD SPECIMENOrdering Facility: [facility] Address: [address] [place] [address] Performed By: #### 2 4344-4 ####[facility]ATORYCLIA [id number] [address] [place] O2 THERAPY NC = Nasal Cannula Normal [facility] Comment on above: Order Comment: Speci men Type: VENOUS BLOOD SPECIMENOrdering Facility: [facility] Address: [address] [place] [address] Performed By: #### 2 4344-4 ####[facility]ATORYCLIA [id number] [address] [place] Oxygen (BldV) [Partial pressure] 58 mm[Hg] High 35-45 [facility] Comment on above: Order Comment: Speci men Type: VENOUS BLOOD SPECIMENOrdering Facility: [facility] Address: [address] [address] Performed By: #### 2 4344-4 ####[facility]ORYCLIA [id number] [address] [place] Oxygen adjusted to patient's actual temperature (BldV) [Partial pressure] 61 mmHg High 35-45 [facility] Comment on above: Order Comment: Speci men Type: VENOUS BLOOD SPECIMENOrdering Facility: [facility] Address: [address] [place] [address] Performed By: #### 2 4344-4 ####[facility]ORYCLIA [id number] [address] [place] Oxygen saturation in Blood 88 % High 60-85 [facility] Comment on above: Order Comment: Speci men Type: VENOUS BLOOD SPECIMENOrdering Facility: [facility] Address: [address] [place] [address] Performed By: #### 2 4344-4 ####[facility]ATORYCLIA [id number] [address] Oxyhemoglobin (BldV) [Mass fraction] 85 % Normal 60-85 [facility] Comment on above: Order Comment: Speci men Type: VENOUS BLOOD SPECIMENOrdering Facility: [facility] Address: [address] [place] [address] Performed By: #### 2 4344-4 ####[facility]ORYCLIA [id number] [address] [place] pH (BldV) 7.41 [pH] Normal 7.32-7.42 [facility] Comment on above: Order Comment: Speci men Type: VENOUS BLOOD SPECIMENOrdering Facility: [facility] Address: [address] [place] [address] Performed By: #### 2 4344-4 ####[facility]ORYCLIA [id number] [address] [facility] pH adjusted to patient's actual temperature (BldV) 7.40 Normal 7.32-7.42 [facility] Comment on above: Order Comment: Speci men Type: VENOUS BLOOD SPECIMENOrdering Facility: [facility] Address: [address] [address] Performed By: #### 2 4344-4 ####[facility]ATORYCLIA [id number] [place] [address] [place] Potassium [Moles/Vol] 4.0 mmol/L Normal 3.5-5.0 [facility] Comment on above: Order Comment: Speci men Type: VENOUS BLOOD SPECIMENOrdering Facility: [facility] Address: [address] [place] [address] Performed By: #### 2 4344-4 ####[facility]ATORYCLIA [id number] [place] [address] [place] Sodium [Moles/Vol] 146 mmol/L High 136-144 [facility] Comment on above: Order Comment: Speci men Type: VENOUS BLOOD SPECIMENOrdering Facility: [facility] Address: [address] [place] [address] Performed By: #### 2 4344-4 ####[facility]ATORYCLIA [id number] [place] [address] [place] Magnesium SerPl-mCncon 07-21 Magnesium [Mass/Vol] 2.5 mg/dL High 1.7-2.3 [facility] Comment on above: Order Comment: Speci men Type: BLOOD SPECIMENOrdering Facility: [facility] Address: [address] [place] [address] Performed By: #### 1 9123-9, 2777-1, 67746-5 ####[facility]ATORYCLIA [id number] [place] [address] [place] NURSING PROGon 07-21-2021 NURSING PROG Normal [facility] Phosphate SerPl-mCncon 07-21 Phosphate [Mass/Vol] 3.7 mg/dL Normal 2.7-4.8 [facility] Comment on above: Order Comment: Speci men Type: BLOOD SPECIMENOrdering Facility: [facility] Address: [address] [place] [address] Performed By: #### 1 9123-9, 2777-1, 70286-5 ####[facility]ATORYCLIA [id number] [address] [facility] THERAPY NTon 07-21-2021 THERAPY NT Normal [facility] XR CHEST 1V FRONTALon 2021 XR CHEST 1V FRONTAL Normal [facility] aPTT PPPon 07-21-2021 aPTT Coag (PPP) [Time] 53.0 s High 23.0-32.4 [facility] Comment on above: Order Comment: Speci men Type: BLOOD SPECIMENOrdering Facility: [facility] Address: [address] [place] [address] Performed By: #### 1 4979-9 ####[facility]ATORYCLIA [id number] [address] [place] ALLIED HEALTHon 07-20-2021 ALLIED HEALTH Normal [facility] Basic metabolic 2000 panelon 07-20-2021 Anion gap [Moles/Vol] 8 mmol/L Low 9-18 [facility] Comment on above: Order Comment: Speci men Type: BLOOD SPECIMENOrdering Facility: [facility] Address: [address] [place] [address] Performed By: #### 2 4321-2, , 2776-05 ####[facility]ATORYCLIA [id number] [place] [address] [place] [facility] Calcium [Mass/Vol] 9.7 mg/dL Normal 8.5-10.2 [facility] Comment on above: Order Comment: Speci men Type: BLOOD SPECIMENOrdering Facility: [facility] Address: [address] [place] [address] Performed By: #### 2 4321-2, , 2777 ####[facility]ATORYCLIA [id number] [place] [address] [place] Chloride [Moles/Vol] 104 mmol/L Normal 97-105 [facility] Comment on above: Order Comment: Speci men Type: BLOOD SPECIMENOrdering Facility: [facility] Address: [address] [place] [address] Performed By: #### 2 4321-2, , 2776-05 ####[facility] [id number] [address] [place] [facility] CO2 [Moles/Vol] 34 mmol/L High 22-30 [facility] Comment on above: Order Comment: Speci men Type: BLOOD SPECIMENOrdering Facility: [facility] Address: [address] [place] [address] Performed By: #### 2 4321-2, , 2776-05 ####[facility]ITALCLIA [id number] [address] Creatinine [Mass/Vol] 0.76 mg/dL Normal 0.73-1.22 [facility] Comment on above: Order Comment: Speci men Type: BLOOD SPECIMENOrdering Facility: [facility] Address: [address] [place] [address] Performed By: #### 2 4321-2, , 2776-05 ####[facility] SERVICESIA [id number] [address] ESTIMATED GLOMERULAR FILTRATION RATE 97 mL/min/1.73m??? Normal >=60 [facility] Comment on above: Order Comment: Speci men Type: BLOOD SPECIMENOrdering Facility: [facility] Address: [address] [place] [address] Result Comment: Luzmaria mated Glomerular Filtration Rate [...] Performed By: #### 2 4321-2, , 2776-05 ####[facility]ORYCLIA [id number] [place] [address] [place] Glucose [Mass/Vol] 123 mg/dL High 74-99 [facility] Comment on above: Order Comment: Speci men Type: BLOOD SPECIMENOrdering Facility: [facility] Address: [address] [place], [place] [address] Result Comment: [employer] [place] [employer] [...] Performed By: #### 2 4321-2, , 2776-05 ####[facility]ATORYCLIA [id number] [place] [address] [place] Potassium [Moles/Vol] 4.4 mmol/L Normal 3.7-5.1 [facility] Comment on above: Order Comment: Shira francia Type: BLOOD SPECIMENOrdering Facility: [facility] Address: [address] [place], [place] [address] Performed By: #### 2 4321-2, , 2776-05 ####[facility]ATORYCLIA [id number] [place] [address] [place] Sodium [Moles/Vol] 146 mmol/L High 136-144 [facility] Comment on above: Order Comment: Speci men Type: BLOOD SPECIMENOrdering Facility: [facility] Address: [address] [place], [place] [address] Performed By: #### 2 4321-2, , 2776-05 ####[facility]ORATORYCLIA [id number] [place] [address] [place] Urea nitrogen [Mass/Vol] 38 mg/dL High 9-24 [facility] Comment on above: Order Comment: Speci men Type: BLOOD SPECIMENOrdering Facility: [facility] Address: [address] [place] [address] Performed By: #### 2 4321-2, 13398-7, 2777-1 ####[facility]ATORYCLIA [id number] [address] [place] CASE MANAGEMon 07-20-2021 CASE MANAGEM Normal [facility] CBC W Auto Differential pane l (Bld)on 07-20-2021 Basophils (Bld) [#/Vol] 0.05 10*3/uL Normal <0.11 [facility] Comment on above: Order Comment: Speci men Type: BLOOD SPECIMENOrdering Facility: [facility] Address: [address] [place] [address] Performed By: #### 5 7021-8 ####[facility]ORATORYCLIA [id number] [place] [address] [place] Basophils/100 WBC (Bld) 0.5 % Normal [facility] Comment on above: Order Comment: Speci men Type: BLOOD SPECIMENOrdering Facility: [facility] Address: [address] [place] [address] Performed By: #### 5 7021-8 ####[facility]ATORYCLIA [id number] [address] [place] Differential cell count method Nom (Bld) Auto Normal [facility] Comment on above: Order Comment: Speci men Type: BLOOD SPECIMENOrdering Facility: [facility] Address: [address] [place] [address] Performed By: #### 5 7021-8 ####[facility]ATORYCLIA [id number] [place] [address] [place] Eosinophils (Bld) [#/Vol] 0.43 10*3/uL Normal <0.46 [facility] Comment on above: Order Comment: Speci men Type: BLOOD SPECIMENOrdering Facility: [facility] Address: [address] [place] [address] Performed By: #### 5 7021-8 ####[facility]ATORYCLIA [id number] [address] Eosinophils/100 WBC (Bld) 4.1 % Normal [facility] Comment on above: Order Comment: Speci men Type: BLOOD SPECIMENOrdering Facility: [facility] Address: [address] [place] [address] Performed By: #### 5 7021-8 ####[facility]ATORYCLIA [id number] [address] Erythrocyte distribution width (RBC) [Ratio] 16.7 % High 11.5-15.0 [facility] Comment on above: Order Comment: Speci men Type: BLOOD SPECIMENOrdering Facility: [facility] Address: [address] [place] [address] Performed By: #### 5 7021-8 ####[facility]ATORYCLIA [id number] [address] Hematocrit (Bld) [Volume fraction] 33.0 % Low 39.0-51.0 [facility] Comment on above: Order Comment: Speci men Type: BLOOD SPECIMENOrdering Facility: [facility] Address: [address] [place] [address] Performed By: #### 5 7021-8 ####[facility]ATORYCLIA [id number] [address] Hemoglobin (Bld) [Mass/Vol] 9.7 g/dL Low 13.0-17.0 [facility] Comment on above: Order Comment: Speci men Type: BLOOD SPECIMENOrdering Facility: [facility] Address: [address] [place] [address] Performed By: #### 5 7021-8 ####[facility]ATORYCLIA [id number] [address] IMMATURE GRAN % 0.4 % Normal [facility] Comment on above: Order Comment: Speci men Type: BLOOD SPECIMENOrdering Facility: [facility] Address: [address] [place] [address] Performed By: #### 5 7021-8 ####[facility]ATORYCLIA [id number] [address] IMMATURE GRAN ABS 0.04 k/uL Normal <0.10 [facility] Comment on above: Order Comment: Speci men Type: BLOOD SPECIMENOrdering Facility: [facility] Address: [address] [place] [address] Performed By: #### 5 7021-8 ####[facility]ATORYCLIA [id number] [address] Lymphocytes (Bld) [#/Vol] 1.99 10*3/uL Normal 1.00-4.00 [facility] Comment on above: Order Comment: Speci men Type: BLOOD SPECIMENOrdering Facility: [facility] Address: [address] [place] [address] Performed By: #### 5 7021-8 ####[facility]ORYCLIA [id number] [address] Lymphocytes/100 WBC (Bld) 18.8 % Normal [facility] Comment on above: Order Comment: Speci men Type: BLOOD SPECIMENOrdering Facility: [facility] Address: [address] [place] [address] Performed By: #### 5 7021-8 ####[facility]ATORYCLIA [id number] [address] [place] MCH (RBC) [Entitic mass] 27.8 pg Normal 26.0-34.0 [facility] Comment on above: Order Comment: Speci men Type: BLOOD SPECIMENOrdering Facility: [facility] Address: [address] [place] [address] Performed By: #### 5 7021-8 ####[facility]ATORYCLIA [id number] [address] [place] [facility] MCHC (RBC) [Mass/Vol] 29.4 g/dL Low 30.5-36.0 [facility] Comment on above: Order Comment: Speci men Type: BLOOD SPECIMENOrdering Facility: [facility] Address: [address] [place] [address] Performed By: #### 5 7021-8 ####[facility]ATORYCLIA [id number] [address] MCV (RBC) [Entitic vol] 94.6 fL Normal 80.0-100.0 [facility] Comment on above: Order Comment: Speci men Type: BLOOD SPECIMENOrdering Facility: [facility] Address: [address] [place] [address] Performed By: #### 5 7021-8 ####[facility]ATORYCLIA [id number] [address] [place] Monocytes (Bld) [#/Vol] 0.82 10*3/uL Normal <0.87 [facility] Comment on above: Order Comment: Speci men Type: BLOOD SPECIMENOrdering Facility: [facility] Address: [address] [place] [address] Performed By: #### 5 7021-8 ####[facility]ATORYCLIA [id number] [address] Monocytes/100 WBC (Bld) 7.8 % Normal [facility] Comment on above: Order Comment: Speci men Type: BLOOD SPECIMENOrdering Facility: [facility] Address: [address] [place] [address] Performed By: #### 5 7021-8 ####[facility]ATORYCLIA [id number] [address] [place] Neutrophils (Bld) [#/Vol] 7.23 10*3/uL Normal 1.45-7.50 [facility] Comment on above: Order Comment: Speci men Type: BLOOD SPECIMENOrdering Facility: [facility] Address: [address] [address] Performed By: #### 5 7021-8 ####[facility]ATORYCLIA [id number] [address] Neutrophils/100 WBC (Bld) 68.4 % Normal [facility] Comment on above: Order Comment: Speci men Type: BLOOD SPECIMENOrdering Facility: [facility] Address: [address] [place] [address] Performed By: #### 5 7021-8 ####[facility]ATORYCLIA [id number] [address] [place] Nucleated RBC (Bld) [#/Vol] 10*3/uL Normal <0.01 [facility] Comment on above: Order Comment: Speci men Type: BLOOD SPECIMENOrdering Facility: [facility] Address: [address] [place] [address] Performed By: #### 5 7021-8 ####[facility]ATORYCLIA [id number] [address] [place] Nucleated RBC/100 WBC (Bld) [Ratio] 0.0 /100 WBC Normal [facility] Comment on above: Order Comment: Speci men Type: BLOOD SPECIMENOrdering Facility: [facility] Address: [address] [place] [address] Performed By: #### 5 7021-8 ####[facility]ATORYCLIA [id number] [address] [place] Platelet mean volume (Bld) [Entitic vol] 10.5 fL Normal 9.0-12.7 [facility] Comment on above: Order Comment: Speci men Type: BLOOD SPECIMENOrdering Facility: [facility] Address: [address] [place] [address] Performed By: #### 5 7021-8 ####[facility]ATORYCLIA [id number] [place] [address] [place] Platelets (Bld) [#/Vol] 400 10*3/uL Normal 150-400 [facility] Comment on above: Order Comment: Speci men Type: BLOOD SPECIMENOrdering Facility: [facility] Address: [address] [place] [address] Performed By: #### 5 7021-8 ####[facility]ATORYCLIA [id number] [address] [place] RBC (Bld) [#/Vol] 3.49 10*6/uL Low 4.20-6.00 [facility] Comment on above: Order Comment: Speci men Type: BLOOD SPECIMENOrdering Facility: [facility] Address: [address] [place] [address] Performed By: #### 5 7021-8 ####[facility]ATORYCLIA [id number] [address] WBC (Bld) [#/Vol] 10.56 10*3/uL Normal 3.70-11.00 [facility] Comment on above: Order Comment: Speci men Type: BLOOD SPECIMENOrdering Facility: [facility] Address: [address] [place] [address] Performed By: #### 5 7021-8 ####[facility]ATORYCLIA [id number] [address] CONSULT PROGon 07-20-2021 CONSULT PROG Normal [facility] CT BRAIN WO IVCONon 07-21-[address] BRAIN WO IVCON Normal [facility] Magnesium SerPl-mCncon 07-20 Magnesium [Mass/Vol] 2.4 mg/dL High 1.7-2.3 [facility] Comment on above: Order Comment: Speci men Type: BLOOD SPECIMENOrdering Facility: [facility] Address: [address] [place] [address] Performed By: #### 2 4321-2, 34340-0, 2777-1 ####[facility]ATORYCLIA [id number] [address] [place] NUTRITIONon 07-20-2021 NUTRITION Normal [facility] Phosphate SerPl-mCncon 07-20 Phosphate [Mass/Vol] 4.1 mg/dL Normal 2.7-4.8 [facility] Comment on above: Order Comment: Speci men Type: BLOOD SPECIMENOrdering Facility: [facility] Address: [address] [place] [address] Performed By: #### 2 4321-2, 46597-3, 2777-1 ####[facility]ATORYCLIA [id number] [place] [address] [place] aPTT PPPon 07-20-2021 aPTT Coag (PPP) [Time] 53.6 s High 23.0-32.4 [facility] Comment on above: Order Comment: Speci men Type: BLOOD SPECIMENOrdering Facility: [facility] Address: [address] [place] [address] Performed By: #### 1 4979-9 ####[facility]ORYCLIA [id number] [place] [address] [place] Bacteria CSF Culton 07-20-19 22 Bacteria identified Cx Nom (CSF) CULTURE, CSF: No growth 14 days GRAM STAIN: No organisms seen No Polymorphonuclear Leukocytes Rare Mononuclear cells Gram stain performed on cytospun specimen. Normal [facility] Comment on above: Performed By: #### 6 06-4 ####[facility]ATORYCLIA [id number] [place] [address] [place] CONSULT PROGon 07-19-2021 CONSULT PROG Normal [facility] CSF MANUAL DIFFon 07-19-2021 DIF TTL, CSF 100 cells counted Normal [facility] Comment on above: Order Comment: Speci men Type: CEREBROSPINAL FLUIDOrdering Facility: [facility] Address: [address] [place] [address] Performed By: #### L [id number], 39305-1, [id number] ####[facility]ATORYCLIA [id number] [place] [address] [place] EOSIN%, CSF 1 % Normal [facility] Comment on above: Order Comment: Speci men Type: CEREBROSPINAL FLUIDOrdering Facility: [facility] Address: [address] [address] Performed By: #### L [id number], 83622-3, [id number] ####[facility]ATORYCLIA [id number] [place] [address] [place] LYMPH%, CSF 67 % Normal 50-90 [facility] Comment on above: Order Comment: Speci men Type: CEREBROSPINAL FLUIDOrdering Facility: [facility] Address: [address] [place] [address] Performed By: #### L [id number], 88972-5, QMQ2476 ####[facility]ATORYCLIA [id number] [address] [place] MACRO%, CSF 1 % High <1 [facility] Comment on above: Order Comment: Speci men Type: CEREBROSPINAL FLUIDOrdering Facility: [facility] Address: [address] [place] [address] Performed By: #### L [id number], 53087-5, [id number] ####[facility]ORYCLIA [id number] [address] [place] MONO%, CSF 18 % Normal 10-50 [facility] Comment on above: Order Comment: Speci men Type: CEREBROSPINAL FLUIDOrdering Facility: [facility] Address: [address] [address] Performed By: #### L [id number], 09236-2, [id number] ####[facility]ORYCLIA [id number] [address] [place] NEUT%, CSF 11 % High 0-3 [facility] Comment on above: Order Comment: Speci men Type: CEREBROSPINAL FLUIDOrdering Facility: [facility] Address: [facility] [address] Performed By: #### L IH3006, 42289-2, [id number] ####[facility]ATORYCLIA [id number] [address] [place] OTHER CL%, CSF 2 % Normal [facility] Comment on above: Order Comment: Speci men Type: CEREBROSPINAL FLUIDOrdering Facility: [facility] Address: [address] [place] [address] Result Comment: Path review to follow. Performed By: #### L [id number], 60452-6, [id number] ####[facility]ATORYCLIA [id number] [address] [place] CSF PATHOLOGIST INTERP (LAB REFLEX ORDER-NO BILL)on 07-19-2021 CSF STAFF REVIEW Normal [facility] Comment on above: Order Comment: Speci men Type: CEREBROSPINAL FLUIDOrdering Facility: [facility] Address: [address] [place] [address] Performed By: #### L NA5252, 71494-8, [id number] ####[facility]ATORYCLIA [id number] [address] Pathologist name Reviewed by Wing Cummings MD [facility] Comment on above: Order Comment: Speci men Type: CEREBROSPINAL FLUIDOrdering Facility: [facility] Address: [address] [place] [address] Performed By: #### L [id number], 26008-2, [id number] ####[facility]ATORYCLIA [id number] [address] Cell count panel (CSF)on Clarity (CSF) Clear Normal Clear [facility] Comment on above: Order Comment: Speci men Type: CEREBROSPINAL FLUIDOrdering Facility: [facility] Address: [address] [place] [address] Performed By: #### L [id number], 79296-8, [id number] ####[facility]ATORYCLIA [id number] [address] Clarity (Unsp spec) Not Indicated Normal Clear [facility] Comment on above: Order Comment: Speci men Type: CEREBROSPINAL FLUIDOrdering Facility: [facility] Address: [address] [address] Performed By: #### L [id number], 27980-5, GGA1789 ####[facility]ATORYCLIA [id number] [address] Color (CSF) Colorless Normal Colorless [facility] Comment on above: Order Comment: Speci men Type: CEREBROSPINAL FLUIDOrdering Facility: [facility] Address: [address] [place] [address] Performed By: #### L [id number], 14188-6, KVP8982 ####[facility]ATORYCLIA [id number] [address] OF [facility] Color (Spun CSF) Not Indicated Normal Colorless [facility] Comment on above: Order Comment: Speci men Type: CEREBROSPINAL FLUIDOrdering Facility: [facility] Address: [address] [place] [address] Performed By: #### L [id number], 99081-2, GPM8639 ####[facility]ATORYCLIA [id number] [address] CSF TUBE NUMBER [employer] Normal [facility] Comment on above: Order Comment: Speci men Type: CEREBROSPINAL FLUIDOrdering Facility: [facility] Address: [address] [place] [address] Performed By: #### L KQ8849, 55127-2, AHW6950 ####[facility]ORYCLIA [id number] [address] [place] [facility] RBC Manual cnt (CSF) [#/Vol] 0 cells/uL Normal 0-5 [facility] Comment on above: Order Comment: Speci men Type: CEREBROSPINAL FLUIDOrdering Facility: [facility] Address: [address] [place] [address] Performed By: #### L FK3788, 12506-6, MKJ8095 ####[facility]ORYCLIA [id number] [address] OF [facility] WBC Manual cnt (CSF) [#/Vol] 2 cells/uL Normal 0-5 [facility] Comment on above: Order Comment: Speci men Type: CEREBROSPINAL FLUIDOrdering Facility: [facility] Address: [address] [place] [address] Performed By: #### L ZM4197, 67908-1, URZ4501 ####[facility]ATORYCLIA [id number] [address] [place] Glucose [facility] Glucose (CSF) [Mass/Vol] 69 mg/dL Normal 40-70 [facility] Comment on above: Order Comment: Speci men Type: CEREBROSPINAL FLUIDOrdering Facility: [facility] Address: [address] [place] [address] Result Comment: Lumb ar CSF glucose values of healthy patients are approximately 60% of the plasma values and must always be compared with a concurrently measured plasma value for adequate clinical interpretation.References: 1. Glucose HK (GLUC3) [package insert V 12.0 Fijian]. [employer], [place], [place]. September 2015. 2. Michelle Moore, Loki HGarfield (2015). Chapter 7: Glucose and Lactate. F. Irina rose al.(eds.), Cerebrospinal Fluid in Clinical Neurology. [place]: [employer]. Performed By: #### 2 342-4, 2880-3 ####[facility]ATORYCLIA [id number] [address] [place] NURSING PROGon 07-19-2021 NURSING PROG Normal [facility] NURSING PROG Normal [facility] Prot CSF-ncon 07-19-2021 Protein (CSF) [Mass/Vol] 51 mg/dL High 15-45 [facility] Comment on above: Order Comment: Speci men Type: CEREBROSPINAL FLUIDOrdering Facility: [facility] Address: [address] [place] [address] Performed By: #### 2 342-4, 2880-3 ####[facility]ATORYCLIA [id number] [address] [place] THERAPY NTon 07-19-2021 THERAPY NT Normal [facility] Urinalysis complete panel (U )on 07-19-2021 Bilirubin Ql (U) Negative Normal Negative [facility] Comment on above: Order Comment: Speci men Type: URINE SPECIMENOrdering Facility: [facility] Address: [address] [place] [address] Performed By: #### 2 4356-8 ####[facility]ORYCLIA [id number] [address] Clarity (Unsp spec) Clear Normal Clear [facility] Comment on above: Order Comment: Speci men Type: URINE SPECIMENOrdering Facility: [facility] Address: [address] [place] [address] Performed By: #### 2 4356-8 ####[facility]ORYCLIA [id number] [address] Color (U) Colorless Normal yellow [facility] Comment on above: Order Comment: Speci men Type: URINE SPECIMENOrdering Facility: [facility] Address: [address] [place] [address] Performed By: #### 2 4356-8 ####[facility]ATORYCLIA [id number] [address] Glucose Test strip (U) [Mass/Vol] Negative Normal Negative [facility] Comment on above: Order Comment: Speci men Type: URINE SPECIMENOrdering Facility: [facility] Address: [address] [place] [address] Performed By: #### 2 4356-8 ####[facility]ORYCLIA [id number] [address] Hemoglobin Ql (U) Trace Abnormal Negative [facility] Comment on above: Order Comment: Speci men Type: URINE SPECIMENOrdering Facility: [facility] Address: [address] [place] [address] Performed By: #### 2 4356-8 ####[facility]ORYCLIA [id number] [address] [place] Hyaline casts (Urine sed) [#/Area] 1-3 /LPF Abnormal 0 /LPF [facility] Comment on above: Order Comment: Speci men Type: URINE SPECIMENOrdering Facility: [facility] Address: [address] [place] [address] Performed By: #### 2 4356-8 ####[facility]ORATORYCLIA [id number] [address] Ketones Ql (U) Negative Normal Negative [facility] Comment on above: Order Comment: Speci men Type: URINE SPECIMENOrdering Facility: [facility] Address: [address] [place] [address] Performed By: #### 2 4356-8 ####[facility]ORYCLIA [id number] [address] Leukocyte esterase Test strip Ql (U) Negative Normal Negative [facility] Comment on above: Order Comment: Speci men Type: URINE SPECIMENOrdering Facility: [facility] Address: [address] [place] [address] Performed By: #### 2 4356-8 ####[facility]ATORYCLIA [id number] [address] [place] [facility] Nitrite Ql (U) Negative Normal Negative [facility] Comment on above: Order Comment: Speci men Type: URINE SPECIMENOrdering Facility: [facility] Address: [address] [place] [address] Performed By: #### 2 4356-8 ####[facility] LABORATORYCLIA [id number] [address] [place] pH (U) 7.0 [pH] Normal 5.0-8.0 [facility] Comment on above: Order Comment: Speci men Type: URINE SPECIMENOrdering Facility: [facility] Address: [address] [place] [address] Performed By: #### 2 4356-8 ####[facility]ATORYCLIA [id number] [address] [place] Protein (U) [Mass/Vol] Negative Normal Negative [facility] Comment on above: Order Comment: Speci men Type: URINE SPECIMENOrdering Facility: [facility] Address: [address] [place] [address] Performed By: #### 2 4356-8 ####[facility]ATORYCLIA [id number] [address] [place] RBC LM.HPF (Urine sed) [#/Area] 6-10 /HPF Abnormal 0-3 /HPF [facility] Comment on above: Order Comment: Speci men Type: URINE SPECIMENOrdering Facility: [facility] Address: [address] [place] [address] Performed By: #### 2 4356-8 ####[facility]ATORYCLIA [id number] [address] Specific gravity (U) [Rel density] 1.008 Normal 1.005-1.030 [facility] Comment on above: Order Comment: Speci men Type: URINE SPECIMENOrdering Facility: [facility] Address: [address] [place] [address] Performed By: #### 2 4356-8 ####[facility]ORYCLIA [id number] [address] Urobilinogen Ql (U) Normal Normal Negative [facility] Comment on above: Order Comment: Speci men Type: URINE SPECIMENOrdering Facility: [facility] Address: [address] [place] [address] Performed By: #### 2 4356-8 ####[facility]ORYCLIA [id number] [address] [place] WBC LM.HPF (Urine sed) [#/Area] 0-5 /HPF Normal 0-5 /HPF [facility] Comment on above: Order Comment: Speci men Type: URINE SPECIMENOrdering Facility: [facility] Address: [address] [place] [address] Performed By: #### 2 4356-8 ####[facility]ATORYCLIA [id number] [address] STATES [place] [facility] Vancomycin random [Mass/Vol] on 07-19-2021 Vancomycin [Mass/Vol] 13.9 ug/mL Normal 10.0-20.0 [facility] Comment on above: Order Comment: Speci men Type: BLOOD SPECIMENOrdering Facility: [facility] Address: [address] [place] [address] Result Comment: Refe rence ranges and high/low indicator flags are provided as general guidelines only. The treating physician must determine appropriate target levels/dosing based on the specific clinical situation. Performed By: #### 4 091-5 ####[facility]ORYCLIA [id number] [address] [place] [facility] aPTT PPPon 07-19-2021 aPTT Coag (PPP) [Time] 53.9 s High 23.0-32.4 [facility] Comment on above: Order Comment: Speci men Type: BLOOD SPECIMENOrdering Facility: [facility] Address: [address] [place] [address] Performed By: #### 1 4979-9 ####[facility] [id number] [place] [address] [place] Basic metabolic 2000 panelon 07-18-2021 Anion gap [Moles/Vol] 6 mmol/L Low 9-18 [facility] Comment on above: Order Comment: Speci men Type: BLOOD SPECIMENOrdering Facility: [facility] Address: [address] [place] [address] Performed By: #### 2 4321-2, 14854-5, 2777-1 ####[facility]ORYCLIA [id number] [address] [place] Calcium [Mass/Vol] 9.4 mg/dL Normal 8.5-10.2 [facility] Comment on above: Order Comment: Speci men Type: BLOOD SPECIMENOrdering Facility: [facility] Address: [address] [place] [address] Performed By: #### 2 4321-2, , 2776-05 ####[facility]ATORYCLIA [id number] [place] [id number] [place] Chloride [Moles/Vol] 103 mmol/L Normal 97-105 [facility] Comment on above: Order Comment: Speci men Type: BLOOD SPECIMENOrdering Facility: [facility] Address: [address] [place] [address] Performed By: #### 2 4321-2, , 2776-05 ####[facility]ATORYCLIA [id number] [place] [address] [place] CO2 [Moles/Vol] 34 mmol/L High 22-30 [facility] Comment on above: Order Comment: Speci men Type: BLOOD SPECIMENOrdering Facility: [facility] Address: [address] [place] [address] Performed By: #### 2 4321-2, , 2776-05 ####[facility]ATORYCLIA [id number] [address] [place] [facility] Creatinine [Mass/Vol] 0.75 mg/dL Normal 0.73-1.22 [facility] Comment on above: Order Comment: Speci men Type: BLOOD SPECIMENOrdering Facility: [facility] Address: [address] [place] [address] Performed By: #### 2 4321-2, , 2776-05 ####[facility]ORYCLIA [id number] [address] ESTIMATED GLOMERULAR FILTRATION RATE 98 mL/min/1.73m??? Normal >=60 [facility] Comment on above: Order Comment: Speci men Type: BLOOD SPECIMENOrdering Facility: [facility] Address: [address] [place] [address] Result Comment: Luzmaria mated Glomerular Filtration Rate [...] Performed By: #### 2 4321-2, , 2776-05 ####[facility]ORYCLIA [id number] [place] [address] [place] Glucose [Mass/Vol] 125 mg/dL High 74-99 [facility] Comment on above: Order Comment: Shira feldman Type: BLOOD SPECIMENOrdering Facility: [facility] Address: [address] [place] [id number] Result Comment: [employer] [place] [employer] [...] Performed By: #### 2 4321-2, , 2776-05 ####[facility]ATORYCLIA [id number] [place] [address] [place] Potassium [Moles/Vol] 4.4 mmol/L Normal 3.7-5.1 [facility] Comment on above: Order Comment: Shira feldman Type: BLOOD SPECIMENOrdering Facility: [facility] Address: [address] [place] [address] Performed By: #### 2 4321-2, , 2776-05 ####[facility]ATORYCLIA [id number] [place] [address] [place] Sodium [Moles/Vol] 143 mmol/L Normal 136-144 [facility] Comment on above: Order Comment: Speci men Type: BLOOD SPECIMENOrdering Facility: [facility] Address: [address] [place] [address] Performed By: #### 2 4321-2, , 2776-05 ####[facility]ATORYCLIA [id number] [address] [place] [facility] Urea nitrogen [Mass/Vol] 33 mg/dL High 9-24 [facility] Comment on above: Order Comment: Speci men Type: BLOOD SPECIMENOrdering Facility: [facility] Address: [address] [place] [address] Performed By: #### 2 4321-2, , 2776-05 ####[facility]ORYCLIA [id number] [address] [place] CASE MANAGEMon 07-18-2021 CASE MANAGEM Normal [facility] CBC W Auto Differential pane l (Bld)on 07-18-2021 Basophils (Bld) [#/Vol] 0.05 10*3/uL Normal <0.11 [facility] Comment on above: Order Comment: Speci men Type: BLOOD SPECIMENOrdering Facility: [facility] Address: [address] [place] [address] Performed By: #### 5 7021-8 ####[facility]ORYCLIA [id number] [address] [place] [facility] Basophils/100 WBC (Bld) 0.5 % Normal [facility] Comment on above: Order Comment: Speci men Type: BLOOD SPECIMENOrdering Facility: [facility] Address: [address] [place] [address] Performed By: #### 5 7021-8 ####[facility]ORYCLIA [id number] [address] [place] [facility] Differential cell count method Nom (Bld) Auto Normal [facility] Comment on above: Order Comment: Speci men Type: BLOOD SPECIMENOrdering Facility: [facility] Address: [address] [place] [address] Performed By: #### 5 7021-8 ####[facility]ATORYCLIA [id number] [address] [place] Eosinophils (Bld) [#/Vol] 0.44 10*3/uL Normal <0.46 [facility] Comment on above: Order Comment: Speci men Type: BLOOD SPECIMENOrdering Facility: [facility] Address: [address] [place] [address] Performed By: #### 5 7021-8 ####[facility]ATORYCLIA [id number] [address] Eosinophils/100 WBC (Bld) 4.3 % Normal [facility] Comment on above: Order Comment: Speci men Type: BLOOD SPECIMENOrdering Facility: [facility] Address: [address] [place] [address] Performed By: #### 5 7021-8 ####[facility]ATORYCLIA [id number] [address] Erythrocyte distribution width (RBC) [Ratio] 16.6 % High 11.5-15.0 [facility] Comment on above: Order Comment: Speci men Type: BLOOD SPECIMENOrdering Facility: [facility] Address: [address] [place] [address] Performed By: #### 5 7021-8 ####[facility]ATORYCLIA [id number] [address] Hematocrit (Bld) [Volume fraction] 32.2 % Low 39.0-51.0 [facility] Comment on above: Order Comment: Speci men Type: BLOOD SPECIMENOrdering Facility: [facility] Address: [address] [place] [address] Performed By: #### 5 7021-8 ####[facility]ATORYCLIA [id number] [address] [place] Hemoglobin (Bld) [Mass/Vol] 9.5 g/dL Low 13.0-17.0 [facility] Comment on above: Order Comment: Speci men Type: BLOOD SPECIMENOrdering Facility: [facility] Address: [address] [place] [address] Performed By: #### 5 7021-8 ####[facility]ORYCLIA [id number] [address] IMMATURE GRAN % 0.4 % Normal [facility] Comment on above: Order Comment: Speci men Type: BLOOD SPECIMENOrdering Facility: [facility] Address: [address] [place] [address] Performed By: #### 5 7021-8 ####[facility]ORYCLIA [id number] [address] IMMATURE GRAN ABS 0.04 k/uL Normal <0.10 [facility] Comment on above: Order Comment: Speci men Type: BLOOD SPECIMENOrdering Facility: [facility] Address: [address] [place] [address] Performed By: #### 5 7021-8 ####[facility]ORYCLIA [id number] [address] Lymphocytes (Bld) [#/Vol] 1.71 10*3/uL Normal 1.00-4.00 [facility] Comment on above: Order Comment: Speci men Type: BLOOD SPECIMENOrdering Facility: [facility] Address: [address] [place] [address] Performed By: #### 5 7021-8 ####[facility]ATORYCLIA [id number] [address] Lymphocytes/100 WBC (Bld) 16.9 % Normal [facility] Comment on above: Order Comment: Speci men Type: BLOOD SPECIMENOrdering Facility: [facility] Address: [address] [place] [address] Performed By: #### 5 7021-8 ####[facility]ORYCLIA [id number] [address] MCH (RBC) [Entitic mass] 27.9 pg Normal 26.0-34.0 [facility] Comment on above: Order Comment: Speci men Type: BLOOD SPECIMENOrdering Facility: [facility] Address: [address] [place] [address] Performed By: #### 5 7021-8 ####[facility]ORYCLIA [id number] [address] [place] [facility] MCHC (RBC) [Mass/Vol] 29.5 g/dL Low 30.5-36.0 [facility] Comment on above: Order Comment: Speci men Type: BLOOD SPECIMENOrdering Facility: [facility] Address: [address] [place] [address] Performed By: #### 5 7021-8 ####[facility]ORYCLIA [id number] [address] [place] [facility] MCV (RBC) [Entitic vol] 94.7 fL Normal 80.0-100.0 [facility] Comment on above: Order Comment: Speci men Type: BLOOD SPECIMENOrdering Facility: [facility] Address: [address] [place] [address] Performed By: #### 5 7021-8 ####[facility]ORYCLIA [id number] [address] Monocytes (Bld) [#/Vol] 0.69 10*3/uL Normal <0.87 [facility] Comment on above: Order Comment: Speci men Type: BLOOD SPECIMENOrdering Facility: [facility] Address: [address] [place] [address] Performed By: #### 5 7021-8 ####[facility]ORYCLIA [id number] [address] Monocytes/100 WBC (Bld) 6.8 % Normal [facility] Comment on above: Order Comment: Speci men Type: BLOOD SPECIMENOrdering Facility: [facility] Address: [address] [place] [address] Performed By: #### 5 7021-8 ####[facility]ATORYCLIA [id number] [place] [address] [place] Neutrophils (Bld) [#/Vol] 7.19 10*3/uL Normal 1.45-7.50 [facility] Comment on above: Order Comment: Speci men Type: BLOOD SPECIMENOrdering Facility: [facility] Address: [address] [place] [address] Performed By: #### 5 7021-8 ####[facility]ORYCLIA [id number] [address] [place] Neutrophils/100 WBC (Bld) 71.1 % Normal [facility] Comment on above: Order Comment: Speci men Type: BLOOD SPECIMENOrdering Facility: [facility] Address: [address] [place] [address] Performed By: #### 5 7021-8 ####[facility]ATORYCLIA [id number] [address] [place] Nucleated RBC (Bld) [#/Vol] 10*3/uL Normal <0.01 [facility] Comment on above: Order Comment: Speci men Type: BLOOD SPECIMENOrdering Facility: [facility] Address: [address] [place] [address] Performed By: #### 5 7021-8 ####[facility]ORYCLIA [id number] [address] [place] Nucleated RBC/100 WBC (Bld) [Ratio] 0.0 /100 WBC Normal [facility] Comment on above: Order Comment: Speci men Type: BLOOD SPECIMENOrdering Facility: [facility] Address: [address] [place] [address] Performed By: #### 5 7021-8 ####[facility]ORYCLIA [id number] [address] [place] Platelet mean volume (Bld) [Entitic vol] 10.3 fL Normal 9.0-12.7 [facility] Comment on above: Order Comment: Speci men Type: BLOOD SPECIMENOrdering Facility: [facility] Address: [address] [place] [address] Performed By: #### 5 7021-8 ####[facility]ORYCLIA [id number] [address] Platelets (Bld) [#/Vol] 403 10*3/uL High 150-400 [facility] Comment on above: Order Comment: Speci men Type: BLOOD SPECIMENOrdering Facility: [facility] Address: [address] [place] [address] Performed By: #### 5 7021-8 ####[facility]ORYCLIA [id number] [address] [place] RBC (Bld) [#/Vol] 3.40 10*6/uL Low 4.20-6.00 [facility] Comment on above: Order Comment: Speci men Type: BLOOD SPECIMENOrdering Facility: [facility] Address: [address] [place] [address] Performed By: #### 5 7021-8 ####[facility]ORYCLIA [id number] [address] OF [facility] WBC (Bld) [#/Vol] 10.12 10*3/uL Normal 3.70-11.00 [facility] Comment on above: Order Comment: Speci men Type: BLOOD SPECIMENOrdering Facility: [facility] Address: [address] [place] [address] Performed By: #### 5 7021-8 ####[facility]ORYCLIA [id number] [address] Magnesium SerPl-mCncon 07-18 Magnesium [Mass/Vol] 2.4 mg/dL High 1.7-2.3 [facility] Comment on above: Order Comment: Speci men Type: BLOOD SPECIMENOrdering Facility: [facility] Address: [address] [place] [address] Performed By: #### 2 4321-2, 42493-8, 2777-1 ####[facility]ORYCLIA [id number] [address] [place] NURSING PROGon 07-18-2021 NURSING PROG Normal [facility] NURSING PROG Normal [facility] Phosphate SerPl-mCncon 07-18 Phosphate [Mass/Vol] 3.9 mg/dL Normal 2.7-4.8 [facility] Comment on above: Order Comment: Speci men Type: BLOOD SPECIMENOrdering Facility: [facility] Address: [address] [place] [address] Performed By: #### 2 4321-2, 53652-7, 2777-1 ####[facility]ORYCLIA [id number] [address] THERAPY NTon 07-18-2021 THERAPY NT Normal [facility] aPTT PPPon 07-18-2021 aPTT Coag (PPP) [Time] 52.3 s High 23.0-32.4 [facility] Comment on above: Order Comment: Speci men Type: BLOOD SPECIMENOrdering Facility: [facility] Address: [address] [place] [address] Performed By: #### 1 4979-9 ####[facility]ORYCLIA [id number] [address] [place] [facility] CBC W Auto Differential pane l (Bld)on 07-17-2021 Basophils (Bld) [#/Vol] 0.05 10*3/uL Normal <0.11 [facility] Comment on above: Order Comment: Speci men Type: BLOOD SPECIMENOrdering Facility: [facility] Address: [address] [place] [address] Performed By: #### 5 7021-8 ####[facility]ORYCLIA [id number] [address] Basophils/100 WBC (Bld) 0.5 % Normal [facility] Comment on above: Order Comment: Speci men Type: BLOOD SPECIMENOrdering Facility: [facility] Address: [address] [place] [place] [address] Performed By: #### 5 7021-8 ####[facility]ATORYCLIA [id number] [address] Differential cell count method Nom (Bld) Auto Normal [facility] Comment on above: Order Comment: Speci men Type: BLOOD SPECIMENOrdering Facility: [facility] Address: [address] [place] [address] Performed By: #### 5 7021-8 ####[facility]ORYCLIA [id number] [address] [place] Eosinophils (Bld) [#/Vol] 0.32 10*3/uL Normal <0.46 [facility] Comment on above: Order Comment: Speci men Type: BLOOD SPECIMENOrdering Facility: [facility] Address: [address] [place] [address] Performed By: #### 5 7021-8 ####[facility]ORYCLIA [id number] [address] Eosinophils/100 WBC (Bld) 3.4 % Normal [facility] Comment on above: Order Comment: Speci men Type: BLOOD SPECIMENOrdering Facility: [facility] Address: [address] [place] [address] Performed By: #### 5 7021-8 ####[facility]ORYCLIA [id number] [address] [place] Erythrocyte distribution width (RBC) [Ratio] 16.6 % High 11.5-15.0 [facility] Comment on above: Order Comment: Speci men Type: BLOOD SPECIMENOrdering Facility: [facility] Address: [address] [place] [address] Performed By: #### 5 7021-8 ####[facility]ORYCLIA [id number] [address] [place] Hematocrit (Bld) [Volume fraction] 30.7 % Low 39.0-51.0 [facility] Comment on above: Order Comment: Speci men Type: BLOOD SPECIMENOrdering Facility: [facility] Address: [address] [place] [address] Performed By: #### 5 7021-8 ####[facility]ORYCLIA [id number] [address] [place] Hemoglobin (Bld) [Mass/Vol] 9.0 g/dL Low 13.0-17.0 [facility] Comment on above: Order Comment: Speci men Type: BLOOD SPECIMENOrdering Facility: [facility] Address: [address] [place] [address] Performed By: #### 5 7021-8 ####[facility]ORYCLIA [id number] [address] IMMATURE GRAN % 0.6 % Normal [facility] Comment on above: Order Comment: Speci men Type: BLOOD SPECIMENOrdering Facility: [facility] Address: [address] [place] [address] Performed By: #### 5 7021-8 ####[facility]ORYCLIA [id number] [address] IMMATURE GRAN ABS 0.06 k/uL Normal <0.10 [facility] Comment on above: Order Comment: Speci men Type: BLOOD SPECIMENOrdering Facility: [facility] Address: [address] [place] [address] Performed By: #### 5 7021-8 ####[facility]ORYCLIA [id number] [address] [place] Lymphocytes (Bld) [#/Vol] 1.61 10*3/uL Normal 1.00-4.00 [facility] Comment on above: Order Comment: Speci men Type: BLOOD SPECIMENOrdering Facility: [facility] Address: [address] [place] [address] Performed By: #### 5 7021-8 ####[facility]ORYCLIA [id number] [address] Lymphocytes/100 WBC (Bld) 17.3 % Normal [facility] Comment on above: Order Comment: Speci men Type: BLOOD SPECIMENOrdering Facility: [facility] Address: [address] [place] [address] Performed By: #### 5 7021-8 ####[facility]ORYCLIA [id number] [address] [place] [facility] MCH (RBC) [Entitic mass] 26.9 pg Normal 26.0-34.0 [facility] Comment on above: Order Comment: Speci men Type: BLOOD SPECIMENOrdering Facility: [facility] Address: [address] [place] [address] Performed By: #### 5 7021-8 ####[facility]ORYCLIA [id number] [address] [place] MCHC (RBC) [Mass/Vol] 29.3 g/dL Low 30.5-36.0 [facility] Comment on above: Order Comment: Speci men Type: BLOOD SPECIMENOrdering Facility: [facility] Address: [address] [place] [address] Performed By: #### 5 7021-8 ####[facility]ORYCLIA [id number] [address] MCV (RBC) [Entitic vol] 91.9 fL Normal 80.0-100.0 [facility] Comment on above: Order Comment: Speci men Type: BLOOD SPECIMENOrdering Facility: [facility] Address: [address] [place] [address] Performed By: #### 5 7021-8 ####[facility]ORYCLIA [id number] [address] Monocytes (Bld) [#/Vol] 0.61 10*3/uL Normal <0.87 [facility] Comment on above: Order Comment: Speci men Type: BLOOD SPECIMENOrdering Facility: [facility] Address: [address] [place] [address] Performed By: #### 5 7021-8 ####[facility]ORYCLIA [id number] [address] [place] Monocytes/100 WBC (Bld) 6.6 % Normal [facility] Comment on above: Order Comment: Speci men Type: BLOOD SPECIMENOrdering Facility: [facility] Address: [address] [place] [address] Performed By: #### 5 7021-8 ####[facility]ATORYCLIA [id number] [place] [address] [place] Neutrophils (Bld) [#/Vol] 6.64 10*3/uL Normal 1.45-7.50 [facility] Comment on above: Order Comment: Speci men Type: BLOOD SPECIMENOrdering Facility: [facility] Address: [address] [place] [address] Performed By: #### 5 7021-8 ####[facility]ORYCLIA [id number] [address] Neutrophils/100 WBC (Bld) 71.6 % Normal [facility] Comment on above: Order Comment: Speci men Type: BLOOD SPECIMENOrdering Facility: [facility] Address: [address] [place] [address] Performed By: #### 5 7021-8 ####[facility]ORYCLIA [id number] [address] [place] Nucleated RBC (Bld) [#/Vol] 10*3/uL Normal <0.01 [facility] Comment on above: Order Comment: Speci men Type: BLOOD SPECIMENOrdering Facility: [facility] Address: [address] [place] [address] Performed By: #### 5 7021-8 ####[facility]ORYCLIA [id number] [address] [place] Nucleated RBC/100 WBC (Bld) [Ratio] 0.0 /100 WBC Normal [facility] Comment on above: Order Comment: Speci men Type: BLOOD SPECIMENOrdering Facility: [facility] Address: [address] Performed By: #### 5 7021-8 ####[facility]ORYCLIA [id number] [address] [facility] Platelet mean volume (Bld) [Entitic vol] 10.1 fL Normal 9.0-12.7 [facility] Comment on above: Order Comment: Speci men Type: BLOOD SPECIMENOrdering Facility: [facility] Address: [address] [place] [address] Performed By: #### 5 7021-8 ####[facility]ORYCLIA [id number] [address] [place] Platelets (Bld) [#/Vol] 387 10*3/uL Normal 150-400 [facility] Comment on above: Order Comment: Speci men Type: BLOOD SPECIMENOrdering Facility: [facility] Address: [address] [place] [address] Performed By: #### 5 7021-8 ####[facility]ORYCLIA [id number] [address] [place] RBC (Bld) [#/Vol] 3.34 10*6/uL Low 4.20-6.00 [facility] Comment on above: Order Comment: Speci men Type: BLOOD SPECIMENOrdering Facility: [facility] Address: [address] [place], [place] [address] Performed By: #### 5 7021-8 ####[facility]ORYCLIA [id number] [address] [place] WBC (Bld) [#/Vol] 9.29 10*3/uL Normal 3.70-11.00 [facility] Comment on above: Order Comment: Speci men Type: BLOOD SPECIMENOrdering Facility: [facility] Address: [address] [place] [address] Performed By: #### 5 7021-8 ####[facility]ORYCLIA [id number] [address] [place] CONSULT PROGon 07-17-2021 CONSULT PROG Normal [facility] Magnesium SerPl-mCncon 07-17 Magnesium [Mass/Vol] 2.3 mg/dL Normal 1.7-2.3 [facility] Comment on above: Order Comment: Speci men Type: BLOOD SPECIMENOrdering Facility: [facility] Address: [address] [place] [address] Performed By: #### 2 777-1, 28167-1 ####[facility]ORYCLIA [id number] [address] NURSING PROGon 07-17-2021 NURSING PROG Normal [facility] NURSING PROG Normal [facility] NURSING PROG Normal [facility] Phosphate SerPl-mCncon 07-17 Phosphate [Mass/Vol] 3.6 mg/dL Normal 2.7-4.8 [facility] Comment on above: Order Comment: Speci men Type: BLOOD SPECIMENOrdering Facility: [facility] Address: [address] [place] [address] Performed By: #### 2 777-1, 75385-4 ####[facility]ORYCLIA [id number] [address] aPTT PPPon 07-17-2021 aPTT Coag (PPP) [Time] 57.2 s High 23.0-32.4 [facility] Comment on above: Order Comment: Speci men Type: BLOOD SPECIMENOrdering Facility: [facility] Address: [address] [place] [address] Performed By: #### 1 4979-9 ####[facility]ORYCLIA [id number] [address] [place] Basic metabolic 2000 panelon 07-16-2021 Anion gap [Moles/Vol] 5 mmol/L Low 9-18 [facility] Comment on above: Order Comment: Speci men Type: BLOOD SPECIMENOrdering Facility: [facility] Address: [address] [place], [place] [id number] Performed By: #### 2 777-1, 67600-1, ####[facility] LABORATORYCLIA [id number] [place] [address] [place] Calcium [Mass/Vol] 9.1 mg/dL Normal 8.5-10.2 [facility] Comment on above: Order Comment: Speci men Type: BLOOD SPECIMENOrdering Facility: [facility] Address: [address] [place] [address] Performed By: #### 2 777-1, 97314-4, ####[facility] LABORATORYCLIA [id number] [place] [address] [place] Chloride [Moles/Vol] 101 mmol/L Normal 97-105 [facility] Comment on above: Order Comment: Speci men Type: BLOOD SPECIMENOrdering Facility: [facility] Address: [address] [place] [address] Performed By: #### 2 777-1, , ####[facility] LABORATORYCLIA [id number] [place] [address] [place] CO2 [Moles/Vol] 35 mmol/L High 22-30 [facility] Comment on above: Order Comment: Speci men Type: BLOOD SPECIMENOrdering Facility: [facility] Address: [address] [place] [address] Performed By: #### 2 777-1, , ####[facility]ATORYCLIA [id number] [place] [address] [place] Creatinine [Mass/Vol] 0.73 mg/dL Normal 0.73-1.22 [facility] Comment on above: Order Comment: Speci men Type: BLOOD SPECIMENOrdering Facility: [facility] Address: [address] [place] [address] Performed By: #### 2 777-1, 55144-0, ####[facility]ORATORYCLIA [id number] [place] [address] [place] ESTIMATED GLOMERULAR FILTRATION RATE 98 mL/min/1.73m??? Normal >=60 [facility] Comment on above: Order Comment: Shira feldman Type: BLOOD SPECIMENOrdering Facility: [facility] Address: [address] [place], [place] [address] Result Comment: Luzmaria mated Glomerular Filtration Rate [...] actual GFR. Performed By: #### 2 777-1, 87498-5, ####[facility]ATORYCLIA [id number] [place] [id number] [place] Glucose [Mass/Vol] 133 mg/dL High 74-99 [facility] Comment on above: Order Comment: Shira feldman Type: BLOOD SPECIMENOrdering Facility: [facility] Address: [address] [place] [address] Result Comment: The [place] [employer] [...] 2016.39(Suppl 1). Performed By: #### 2 777-1, 90655-8, ####[facility]ATORYCLIA [id number] [place] [address] [place] Potassium [Moles/Vol] 4.2 mmol/L Normal 3.7-5.1 [facility] Comment on above: Order Comment: Speci men Type: BLOOD SPECIMENOrdering Facility: [facility] Address: [address] [place] [address] Performed By: #### 2 777-1, 68028-6, ####[facility]ATORYCLIA [id number] [place] [address] [place] Sodium [Moles/Vol] 141 mmol/L Normal 136-144 [facility] Comment on above: Order Comment: Speci men Type: BLOOD SPECIMENOrdering Facility: [facility] Address: [address] [place] [address] Performed By: #### 2 777-1, , ####[facility]ATORYCLIA [id number] [address] [place] Urea nitrogen [Mass/Vol] 21 mg/dL Normal 9-24 [facility] Comment on above: Order Comment: Speci men Type: BLOOD SPECIMENOrdering Facility: [facility] Address: [address] [place] [address] Performed By: #### 2 777-1, , ####[facility]ATORYCLIA [id number] [address] [place] CBC W Auto Differential pane l (Bld)on 07-16-2021 Basophils (Bld) [#/Vol] 0.06 10*3/uL Normal <0.11 [facility] Comment on above: Order Comment: Speci men Type: BLOOD SPECIMENOrdering Facility: [facility] Address: [address] [place] [address] Performed By: #### 5 7021-8 ####[facility]ORYCLIA [id number] [address] [place] Basophils/100 WBC (Bld) 0.7 % Normal [facility] Comment on above: Order Comment: Speci men Type: BLOOD SPECIMENOrdering Facility: [facility] Address: [address] [address] Performed By: #### 5 7021-8 ####[facility]ATORYCLIA [id number] [address] Differential cell count method Nom (Bld) Auto Normal [facility] Comment on above: Order Comment: Speci men Type: BLOOD SPECIMENOrdering Facility: [facility] Address: [address] [place] [address] Performed By: #### 5 7021-8 ####[facility]ATORYCLIA [id number] [address] [place] Eosinophils (Bld) [#/Vol] 0.35 10*3/uL Normal <0.46 [facility] Comment on above: Order Comment: Speci men Type: BLOOD SPECIMENOrdering Facility: [facility] Address: [address] [place] [address] Performed By: #### 5 7021-8 ####[facility]ATORYCLIA [id number] [address] Eosinophils/100 WBC (Bld) 3.9 % Normal [facility] Comment on above: Order Comment: Speci men Type: BLOOD SPECIMENOrdering Facility: [facility] Address: [address] [place] [address] Performed By: #### 5 7021-8 ####[facility]ATORYCLIA [id number] [address] [place] Erythrocyte distribution width (RBC) [Ratio] 16.5 % High 11.5-15.0 [facility] Comment on above: Order Comment: Speci men Type: BLOOD SPECIMENOrdering Facility: [facility] Address: [address] [place] [address] Performed By: #### 5 7021-8 ####[facility]ATORYCLIA [id number] [address] [place] Hematocrit (Bld) [Volume fraction] 30.9 % Low 39.0-51.0 [facility] Comment on above: Order Comment: Speci men Type: BLOOD SPECIMENOrdering Facility: [facility] Address: [address] [place] [address] Performed By: #### 5 7021-8 ####[facility]ORYCLIA [id number] [address] [place] Hemoglobin (Bld) [Mass/Vol] 9.1 g/dL Low 13.0-17.0 [facility] Comment on above: Order Comment: Speci men Type: BLOOD SPECIMENOrdering Facility: [facility] Address: [address] [place] [address] Performed By: #### 5 7021-8 ####[facility]ATORYCLIA [id number] [address] IMMATURE GRAN % 0.4 % Normal [facility] Comment on above: Order Comment: Speci men Type: BLOOD SPECIMENOrdering Facility: [facility] Address: [address] [place] [address] Performed By: #### 5 7021-8 ####[facility]ATORYCLIA [id number] [address] IMMATURE GRAN ABS 0.04 k/uL Normal <0.10 [facility] Comment on above: Order Comment: Speci men Type: BLOOD SPECIMENOrdering Facility: [facility] Address: [address] [place] [address] Performed By: #### 5 7021-8 ####[facility]ATORYCLIA [id number] [address] [place] Lymphocytes (Bld) [#/Vol] 1.35 10*3/uL Normal 1.00-4.00 [facility] Comment on above: Order Comment: Speci men Type: BLOOD SPECIMENOrdering Facility: [facility] Address: [address] [place] [address] Performed By: #### 5 7021-8 ####[facility]ATORYCLIA [id number] [address] Lymphocytes/100 WBC (Bld) 15.0 % Normal [facility] Comment on above: Order Comment: Speci men Type: BLOOD SPECIMENOrdering Facility: [facility] Address: [address] [place] [address] Performed By: #### 5 7021-8 ####[facility]ATORYCLIA [id number] [address] [place] [facility] MCH (RBC) [Entitic mass] 27.1 pg Normal 26.0-34.0 [facility] Comment on above: Order Comment: Speci men Type: BLOOD SPECIMENOrdering Facility: [facility] Address: [address] [place] [address] Performed By: #### 5 7021-8 ####[facility]ATORYCLIA [id number] [address] MCHC (RBC) [Mass/Vol] 29.4 g/dL Low 30.5-36.0 [facility] Comment on above: Order Comment: Speci men Type: BLOOD SPECIMENOrdering Facility: [facility] Address: [address] [place] [address] Performed By: #### 5 7021-8 ####[facility]ATORYCLIA [id number] [address] MCV (RBC) [Entitic vol] 92.0 fL Normal 80.0-100.0 [facility] Comment on above: Order Comment: Speci men Type: BLOOD SPECIMENOrdering Facility: [facility] Address: [address] [place] [address] Performed By: #### 5 7021-8 ####[facility]ATORYCLIA [id number] [address] Monocytes (Bld) [#/Vol] 0.53 10*3/uL Normal <0.87 [facility] Comment on above: Order Comment: Speci men Type: BLOOD SPECIMENOrdering Facility: [facility] Address: [address] [place] [address] Performed By: #### 5 7021-8 ####[facility]ORATORYCLIA [id number] [address] [place] Monocytes/100 WBC (Bld) 5.9 % Normal [facility] Comment on above: Order Comment: Speci men Type: BLOOD SPECIMENOrdering Facility: [facility] Address: [address] [place] [address] Performed By: #### 5 7021-8 ####[facility]ATORYCLIA [id number] [address] [place] Neutrophils (Bld) [#/Vol] 6.67 10*3/uL Normal 1.45-7.50 [facility] Comment on above: Order Comment: Speci men Type: BLOOD SPECIMENOrdering Facility: [facility] Address: [address] [place] [address] Performed By: #### 5 7021-8 ####[facility]ATORYCLIA [id number] [address] Neutrophils/100 WBC (Bld) 74.1 % Normal [facility] Comment on above: Order Comment: Speci men Type: BLOOD SPECIMENOrdering Facility: [facility] Address: [address] [place] [address] Performed By: #### 5 7021-8 ####[facility]ATORYCLIA [id number] [address] [place] Nucleated RBC (Bld) [#/Vol] 10*3/uL Normal <0.01 [facility] Comment on above: Order Comment: Speci men Type: BLOOD SPECIMENOrdering Facility: [facility] Address: [address] [place] [address] Performed By: #### 5 7021-8 ####[facility]ATORYCLIA [id number] [address] [place] Nucleated RBC/100 WBC (Bld) [Ratio] 0.0 /100 WBC Normal [facility] Comment on above: Order Comment: Speci men Type: BLOOD SPECIMENOrdering Facility: [facility] Address: [address] [place], [place] [address] Performed By: #### 5 7021-8 ####[facility]ATORYCLIA [id number] [address] [place] Platelet mean volume (Bld) [Entitic vol] 9.9 fL Normal 9.0-12.7 [facility] Comment on above: Order Comment: Speci men Type: BLOOD SPECIMENOrdering Facility: [facility] Address: [address] [place], [place] [address] Performed By: #### 5 7021-8 ####[facility]ATORYCLIA [id number] [address] [place] Platelets (Bld) [#/Vol] 391 10*3/uL Normal 150-400 [facility] Comment on above: Order Comment: Speci men Type: BLOOD SPECIMENOrdering Facility: [facility] Address: [address] [place] [address] Performed By: #### 5 7021-8 ####[facility]ORYCLIA [id number] [place] [address] [place] RBC (Bld) [#/Vol] 3.36 10*6/uL Low 4.20-6.00 [facility] Comment on above: Order Comment: Speci men Type: BLOOD SPECIMENOrdering Facility: [facility] Address: [address] [place], [place] [address] Performed By: #### 5 7021-8 ####[facility]ATORYCLIA [id number] [place] [address] [place] WBC (Bld) [#/Vol] 9.00 10*3/uL Normal 3.70-11.00 [facility] Comment on above: Order Comment: Speci men Type: BLOOD SPECIMENOrdering Facility: [facility] Address: [address] [place] [address] Performed By: #### 5 7021-8 ####[facility]ORYCLIA [id number] [address] CONSULT PROGon 07-16-2021 CONSULT PROG Normal [facility] CONSULT PROG Normal [facility] Magnesium SerPl-mCncon 07-16 Magnesium [Mass/Vol] 2.3 mg/dL Normal 1.7-2.3 [facility] Comment on above: Order Comment: Speci men Type: BLOOD SPECIMENOrdering Facility: [facility] Address: [address] [place] [address] Performed By: #### 2 777-1, 48204-8, ####[facility]ORYCLIA [id number] [address] NURSING PROGon 07-16-2021 NURSING PROG Normal [facility] Phosphate SerPl-mCncon 07-16 Phosphate [Mass/Vol] 3.6 mg/dL Normal 2.7-4.8 [facility] Comment on above: Order Comment: Speci men Type: BLOOD SPECIMENOrdering Facility: [facility] Address: [address] [place] [address] Performed By: #### 2 777-1, 60160-1, ####[facility]ATORYCLIA [id number] [address] Vancomycin random [Mass/Vol] on 07-16-2021 Vancomycin [Mass/Vol] 16.9 ug/mL Normal 10.0-20.0 [facility] Comment on above: Order Comment: Speci men Type: BLOOD SPECIMENOrdering Facility: [facility] Address: [address] [place] [address] Result Comment: Refe rence ranges and high/low indicator flags are provided as general guidelines only. The treating physician must determine appropriate target levels/dosing based on the specific clinical situation. Performed By: #### 4 091-5 ####[facility]ATORYCLIA [id number] [address] [place] aPTT PPPon 07-16-2021 aPTT Coag (PPP) [Time] 57.2 s High 23.0-32.4 [facility] Comment on above: Order Comment: Speci men Type: BLOOD SPECIMENOrdering Facility: [facility] Address: [address] [place] [address] Performed By: #### 1 4979-9 ####[facility]ATORYCLIA [id number] [place] [id number] [place] ALLIED HEALTHon 07-15-2021 ALLIED HEALTH Normal [facility] Basic metabolic 2000 panelon 07-15-2021 Anion gap [Moles/Vol] 11 mmol/L Normal 9-18 [facility] Comment on above: Order Comment: Speci men Type: BLOOD SPECIMENOrdering Facility: [facility] Address: [address] [place] [address] Performed By: #### 2 4321-2, , 2776-05 ####[facility]ATORYCLIA [id number] [place] [address] [place] Calcium [Mass/Vol] 8.8 mg/dL Normal 8.5-10.2 [facility] Comment on above: Order Comment: Speci men Type: BLOOD SPECIMENOrdering Facility: [facility] Address: [address] [place] [address] Performed By: #### 2 4321-2, , 2776-05 ####[facility]ATORYCLIA [id number] [place] [address] [place] Chloride [Moles/Vol] 101 mmol/L Normal 97-105 [facility] Comment on above: Order Comment: Speci men Type: BLOOD SPECIMENOrdering Facility: [facility] Address: [address] [place] [address] Performed By: #### 2 4321-2, , 2776-05 ####[facility]ATORYCLIA [id number] [place] [address] [place] CO2 [Moles/Vol] 31 mmol/L High 22-30 [facility] Comment on above: Order Comment: Speci men Type: BLOOD SPECIMENOrdering Facility: [facility] Address: [address] [place] [address] Performed By: #### 2 4321-2, , 2776-05 ####[facility]ITALCLIA [id number] [place] [address] [place] Creatinine [Mass/Vol] 0.76 mg/dL Normal 0.73-1.22 [facility] Comment on above: Order Comment: Speci men Type: BLOOD SPECIMENOrdering Facility: [facility] Address: [address] [place] [address] Performed By: #### 2 4321-2, , 2776-05 ####[facility] SERVICESIA [id number] [address] [place] ESTIMATED GLOMERULAR FILTRATION RATE 97 mL/min/1.73m??? Normal >=60 [facility] Comment on above: Order Comment: Speccara men Type: BLOOD SPECIMENOrdering Facility: [facility] Address: [address] [place] [address] Result Comment: Luzmaria mated Glomerular Filtration Rate [...] Performed By: #### 2 4321-2, , 2776-05 ####[facility]ATORYIA [id number] [place] [address] [place] Glucose [Mass/Vol] 115 mg/dL High 74-99 [facility] Comment on above: Order Comment: Johni francia Type: BLOOD SPECIMENOrdering Facility: [facility] Address: [address] [place] [address] Result Comment: [employer] [place] [employer] [...] Performed By: #### 2 4321-2, , 2776-05 ####[facility]ATORYCLIA [id number] [place] [address] [place] Potassium [Moles/Vol] 4.0 mmol/L Normal 3.7-5.1 [facility] Comment on above: Order Comment: Shira feldman Type: BLOOD SPECIMENOrdering Facility: [facility] Address: [address] [place] [address] Performed By: #### 2 4320-2, , 2776-05 ####[facility]ITALCLIA [id number] [place] [address] [place] Sodium [Moles/Vol] 143 mmol/L Normal 136-144 [facility] Comment on above: Order Comment: Shira feldman Type: BLOOD SPECIMENOrdering Facility: [facility] Address: [address] [place] [address] Performed By: #### 2 4321-2, , 2776-05 ####[facility]ORYCLIA [id number] [place] [address] [place] Urea nitrogen [Mass/Vol] 17 mg/dL Normal 9-24 [facility] Comment on above: Order Comment: Shira feldman Type: BLOOD SPECIMENOrdering Facility: [facility] Address: [address] [address] Performed By: #### 2 4321-2, , 2776-05 ####[facility]ORYCLIA [id number] [address] [place] CASE MANAGEMon 07-15-2021 CASE MANAGEM Normal [facility] CBC panel Auto (Bld)on 07-15 Erythrocyte distribution width (RBC) [Ratio] 16.4 % High 11.5-15.0 [facility] Comment on above: Order Comment: Speci men Type: BLOOD SPECIMENOrdering Facility: [facility] Address: [address] [place] [address] Performed By: #### 5 8410-2 ####[facility]ATORYCLIA [id number] [address] Hematocrit (Bld) [Volume fraction] 30.3 % Low 39.0-51.0 [facility] Comment on above: Order Comment: Speci men Type: BLOOD SPECIMENOrdering Facility: [facility] Address: [address] [place] [address] Performed By: #### 5 8410-2 ####[facility]ATORYCLIA [id number] [address] Hemoglobin (Bld) [Mass/Vol] 9.2 g/dL Low 13.0-17.0 [facility] Comment on above: Order Comment: Speci men Type: BLOOD SPECIMENOrdering Facility: [facility] Address: [address] [place] [address] Performed By: #### 5 8410-2 ####[facility]ATORYCLIA [id number] [address] [place] MCH (RBC) [Entitic mass] 28.3 pg Normal 26.0-34.0 [facility] Comment on above: Order Comment: Speci men Type: BLOOD SPECIMENOrdering Facility: [facility] Address: [address] [place] [address] Performed By: #### 5 8410-2 ####[facility]ATORYCLIA [id number] [address] [place] MCHC (RBC) [Mass/Vol] 30.4 g/dL Low 30.5-36.0 [facility] Comment on above: Order Comment: Speci men Type: BLOOD SPECIMENOrdering Facility: [facility] Address: [address] [place], [place] [address] Performed By: #### 5 8410-2 ####[facility]ORYCLIA [id number] [address] [place] MCV (RBC) [Entitic vol] 93.2 fL Normal 80.0-100.0 [facility] Comment on above: Order Comment: Speci men Type: BLOOD SPECIMENOrdering Facility: [facility] Address: [address] [place], [place] [address] Performed By: #### 5 8410-2 ####[facility]ATORYCLIA [id number] [address] [place] Nucleated RBC (Bld) [#/Vol] 10*3/uL Normal <0.01 [facility] Comment on above: Order Comment: Speci men Type: BLOOD SPECIMENOrdering Facility: [facility] Address: [address] [place] [address] Performed By: #### 5 8410-2 ####[facility]ORYCLIA [id number] [address] [place] Platelet mean volume (Bld) [Entitic vol] 9.9 fL Normal 9.0-12.7 [facility] Comment on above: Order Comment: Speci men Type: BLOOD SPECIMENOrdering Facility: [facility] Address: [address] [place], [place] [address] Performed By: #### 5 8410-2 ####[facility]ORYCLIA [id number] [address] [place] Platelets (Bld) [#/Vol] 381 10*3/uL Normal 150-400 [facility] Comment on above: Order Comment: Speci men Type: BLOOD SPECIMENOrdering Facility: [facility] Address: [address] [place], [place] [address] Performed By: #### 5 8410-2 ####[facility]ATORYCLIA [id number] [place] [address] [place] RBC (Bld) [#/Vol] 3.25 10*6/uL Low 4.20-6.00 [facility] Comment on above: Order Comment: Speci men Type: BLOOD SPECIMENOrdering Facility: [facility] Address: [address] [place] [address] Performed By: #### 5 8410-2 ####[facility]ATORYCLIA [id number] [address] [place] WBC (Bld) [#/Vol] 8.80 10*3/uL Normal 3.70-11.00 [facility] Comment on above: Order Comment: Speci men Type: BLOOD SPECIMENOrdering Facility: [facility] Address: [address] [place] [address] Performed By: #### 5 8410-2 ####[facility]ATORYCLIA [id number] [address] [place] Magnesium SerPl-mCncon 07-15 Magnesium [Mass/Vol] 2.2 mg/dL Normal 1.7-2.3 [facility] Comment on above: Order Comment: Speci men Type: BLOOD SPECIMENOrdering Facility: [facility] Address: [address] [place] [address] Performed By: #### 2 4321-2, 57786-1, 2777-1 ####[facility]ATORYCLIA [id number] [place] [address] [place] NURSING PROGon 07-15-2021 NURSING PROG Normal [facility] NURSING PROG Normal [facility] NURSING PROG Normal [facility] NUTRITIONon 07-15-2021 NUTRITION Normal [facility] Phosphate SerPl-mCncon 07-15 Phosphate [Mass/Vol] 3.4 mg/dL Normal 2.7-4.8 [facility] Comment on above: Order Comment: Speci men Type: BLOOD SPECIMENOrdering Facility: [facility] Address: [address] [place] [address] Performed By: #### 2 4321-2, 51792-3, 2777-1 ####[facility]ATORYCLIA [id number] [place] [address] [facility] THERAPY NTon 07-15-2021 THERAPY NT Normal [facility] US DVT UPPER LTon 07-15-2021 US DVT UPPER LT Normal [facility] XR CHEST 1V FRONTALon 2021 XR CHEST 1V FRONTAL Normal [facility] aPTT PPPon 07-15-2021 aPTT Coag (PPP) [Time] 59.9 s High 23.0-32.4 [facility] Comment on above: Order Comment: Speci men Type: BLOOD SPECIMENOrdering Facility: [facility] Address: [address] [place] [address] Performed By: #### 1 4979-9 ####[facility]ORYCLIA [id number] [place] [address] [place] Basic metabolic 2000 panelon 07-14-2021 Anion gap [Moles/Vol] 9 mmol/L Normal 9-18 [facility] Comment on above: Order Comment: Speci men Type: BLOOD SPECIMENOrdering Facility: [facility] Address: [address] [place] [address] Performed By: #### 1 9123-9, 2777-1, 71430-7 ####[facility]ATORYCLIA [id number] [place] [address] [place] Calcium [Mass/Vol] 8.5 mg/dL Normal 8.5-10.2 [facility] Comment on above: Order Comment: Speci men Type: BLOOD SPECIMENOrdering Facility: [facility] Address: [address] [place] [address] Performed By: #### 1 9123-9, 2777-1, 33841-3 ####[facility]ORYCL[facility] [id number] [place] [address] [place] Chloride [Moles/Vol] 99 mmol/L Normal 97-105 [facility] Comment on above: Order Comment: Speci men Type: BLOOD SPECIMENOrdering Facility: [facility] Address: [address] [place] [address] Performed By: #### 1 9123-9, 2777, ####[facility]ATORYCLIA [id number] [address] CO2 [Moles/Vol] 31 mmol/L High 22-30 [facility] Comment on above: Order Comment: Speci men Type: BLOOD SPECIMENOrdering Facility: [facility] Address: [address] [place] [address] Performed By: #### 1 9123-9, 27711-04, ####[facility]ORATORYCLIA [id number] [address] Creatinine [Mass/Vol] 0.74 mg/dL Normal 0.73-1.22 [facility] [facility] Comment on above: Order Comment: Speci men Type: BLOOD SPECIMENOrdering Facility: [facility] Address: [address] [place] [address] Performed By: #### 1 9123-9, 2776-05, ####[facility] [id number] [address] ESTIMATED GLOMERULAR FILTRATION RATE 98 mL/min/1.73m??? Normal >=60 [facility] Comment on above: Order Comment: Speci men Type: BLOOD SPECIMENOrdering Facility: [facility] Address: [address] [place] [address] Result Comment: Luzmaria mated Glomerular Filtration Rate [...] GFR. Performed By: #### 1 9123-9, 27711-04, 03636-2 ####[facility]ORYCLIA [id number] [place] [address] [place] Glucose [Mass/Vol] 117 mg/dL High 74-99 [facility] Comment on above: Order Comment: Speci men Type: BLOOD SPECIMENOrdering Facility: [facility] Address: [address] [place] [address] Result Comment: [employer] [place] [employer] [...] 1). Performed By: #### 1 9123-9, 2777, 85255-5 ####[facility]ATORYCLIA [id number] [place] [address] [place] Potassium [Moles/Vol] 3.7 mmol/L Normal 3.7-5.1 [facility] Comment on above: Order Comment: Speci men Type: BLOOD SPECIMENOrdering Facility: [facility] Address: [address] [place], [place] [address] Performed By: #### 1 9123-9, 27711-04, 31349-6 ####[facility]ORYCLIA [id number] [place] [address] [place] Sodium [Moles/Vol] 139 mmol/L Normal 136-144 [facility] Comment on above: Order Comment: Speci men Type: BLOOD SPECIMENOrdering Facility: [facility] Address: [address] [place] [address] Performed By: #### 1 9123-9, 27711-04, 57389-1 ####[facility]ORYCLIA [id number] [address] [place] Urea nitrogen [Mass/Vol] 16 mg/dL Normal 9-24 [facility] Comment on above: Order Comment: Speci men Type: BLOOD SPECIMENOrdering Facility: [facility] Address: [address] [place] [address] Performed By: #### 1 9123-9, 2777-1, 43180-0 ####[facility]ORYCLIA [id number] [address] CBC panel Auto (Bld)on 07-14 Erythrocyte distribution width (RBC) [Ratio] 16.2 % High 11.5-15.0 [facility] Comment on above: Order Comment: Speci men Type: BLOOD SPECIMENOrdering Facility: [facility] Address: [address] [place] [address] Performed By: #### 5 8410-2 ####[facility]ORYCLIA [id number] [address] [place] [facility] Hematocrit (Bld) [Volume fraction] 29.7 % Low 39.0-51.0 [facility] Comment on above: Order Comment: Speci men Type: BLOOD SPECIMENOrdering Facility: [facility] Address: [address] [place] [address] Performed By: #### 5 8410-2 ####[facility]ORYCLIA [id number] [address] [place] Hemoglobin (Bld) [Mass/Vol] 8.8 g/dL Low 13.0-17.0 [facility] Comment on above: Order Comment: Speci men Type: BLOOD SPECIMENOrdering Facility: [facility] Address: [address] [place] [address] Performed By: #### 5 8410-2 ####[facility]ORYCLIA [id number] [address] [place] MCH (RBC) [Entitic mass] 27.5 pg Normal 26.0-34.0 [facility] Comment on above: Order Comment: Speci men Type: BLOOD SPECIMENOrdering Facility: [facility] Address: [address] [place] [address] Performed By: #### 5 8410-2 ####[facility]ORYCLIA [id number] [address] MCHC (RBC) [Mass/Vol] 29.6 g/dL Low 30.5-36.0 [facility] Comment on above: Order Comment: Speci men Type: BLOOD SPECIMENOrdering Facility: [facility] Address: [address] [place] [address] Performed By: #### 5 8410-2 ####[facility]ORYCLIA [id number] [address] [place] MCV (RBC) [Entitic vol] 92.8 fL Normal 80.0-100.0 [facility] Comment on above: Order Comment: Speci men Type: BLOOD SPECIMENOrdering Facility: [facility] Address: [address] [place] [address] Performed By: #### 5 8410-2 ####[facility]ORYCLIA [id number] [address] Nucleated RBC (Bld) [#/Vol] 10*3/uL Normal <0.01 [facility] Comment on above: Order Comment: Speci men Type: BLOOD SPECIMENOrdering Facility: [facility] Address: [address] [place] [address] Performed By: #### 5 8410-2 ####[facility]ORYCLIA [id number] [address] Platelet mean volume (Bld) [Entitic vol] 9.6 fL Normal 9.0-12.7 [facility] Comment on above: Order Comment: Speci men Type: BLOOD SPECIMENOrdering Facility: [facility] Address: [address] [place] [address] Performed By: #### 5 8410-2 ####[facility]ORYCLIA [id number] [place] [address] [place] Platelets (Bld) [#/Vol] 354 10*3/uL Normal 150-400 [facility] Comment on above: Order Comment: Speci men Type: BLOOD SPECIMENOrdering Facility: [facility] Address: [address] [place] [address] Performed By: #### 5 8410-2 ####[facility]ORYCLIA [id number] [place] [address] [place] RBC (Bld) [#/Vol] 3.20 10*6/uL Low 4.20-6.00 [facility] Comment on above: Order Comment: Speci men Type: BLOOD SPECIMENOrdering Facility: [facility] Address: [address] [place] [address] Performed By: #### 5 8410-2 ####[facility]ORYCLIA [id number] [address] [place] [facility] WBC (Bld) [#/Vol] 9.41 10*3/uL Normal 3.70-11.00 [facility] Comment on above: Order Comment: Speci men Type: BLOOD SPECIMENOrdering Facility: [facility] Address: [address] [place] [address] Performed By: #### 5 8410-2 ####[facility]ORYCLIA [id number] [address] [place] CONSULT PROGon 07-14-2021 CONSULT PROG Normal [facility] Magnesium SerPl-mCncon 07-14 Magnesium [Mass/Vol] 2.2 mg/dL Normal 1.7-2.3 [facility] Comment on above: Order Comment: Speci men Type: BLOOD SPECIMENOrdering Facility: [facility] Address: [address] [place] [address] Performed By: #### 1 9123-9, 2777-1, 96563-6 ####[facility]ORYCLIA [id number] [address] [place] NURSING PROGon 07-14-2021 NURSING PROG Normal [facility] Phosphate SerPl-mCncon 07-14 Phosphate [Mass/Vol] 3.6 mg/dL Normal 2.7-4.8 [facility] Comment on above: Order Comment: Speci men Type: BLOOD SPECIMENOrdering Facility: [facility] Address: [address] [place] [address] Performed By: #### 1 9123-9, 2777-1, 19888-8 ####[facility]ORYCLIA [id number] [address] [place] aPTT PPPon 07-14-2021 aPTT Coag (PPP) [Time] 62.9 s High 23.0-32.4 [facility] Comment on above: Order Comment: Speci men Type: BLOOD SPECIMENOrdering Facility: [facility] Address: [address] [place] [address] Performed By: #### 1 4979-9 ####[facility]ORYCLIA [id number] [address] [place] aPTT Coag (PPP) [Time] 55.2 s High 23.0-32.4 [facility] Comment on above: Order Comment: Speci men Type: BLOOD SPECIMENOrdering Facility: [facility] Address: [address] [place] [address] Performed By: #### 1 4979-9 ####[facility]ORYCLIA [id number] [place] [address] [place] Basic metabolic 2000 panelon 07-13-2021 Anion gap [Moles/Vol] 10 mmol/L Normal 9-18 [facility] Comment on above: Order Comment: Speci men Type: BLOOD SPECIMENOrdering Facility: [facility] Address: [address] [place] [address] Performed By: #### 1 9123-9, 2777-1, 78943-3 ####[facility]ORYCLIA [id number] [address] [place] [facility] Calcium [Mass/Vol] 8.5 mg/dL Normal 8.5-10.2 [facility] Comment on above: Order Comment: Speci men Type: BLOOD SPECIMENOrdering Facility: [facility] Address: [address] [place] [address] Performed By: #### 1 9123-9, 2777-1, 44898-2 ####[facility]ORYCLIA [id number] [place] [address] [place] Chloride [Moles/Vol] 98 mmol/L Normal 97-105 [facility] Comment on above: Order Comment: Speci men Type: BLOOD SPECIMENOrdering Facility: [facility] Address: [address] [place] [address] Performed By: #### 1 9123-9, 27711-04, 73216-9 ####[facility]ORYCLIA [id number] [address] [place] [facility] CO2 [Moles/Vol] 32 mmol/L High 22-30 [facility] Comment on above: Order Comment: Speci men Type: BLOOD SPECIMENOrdering Facility: [facility] Address: [address] [place] [address] Performed By: #### 1 9123-9, 27711-04, 78282-0 ####[facility]ORYCLIA [id number] [address] [place] Creatinine [Mass/Vol] 0.75 mg/dL Normal 0.73-1.22 [facility] Comment on above: Order Comment: Speci men Type: BLOOD SPECIMENOrdering Facility: [facility] Address: [address] [place] [address] Performed By: #### 1 9123-9, 2777, 47497-4 ####[facility]ORYCLIA [id number] [address] [place] ESTIMATED GLOMERULAR FILTRATION RATE 98 mL/min/1.73m??? Normal >=60 [facility] Comment on above: Order Comment: Speci men Type: BLOOD SPECIMENOrdering Facility: [facility] Address: [address] [id number] Result Comment: Luzmaria mated Glomerular Filtration Rate [...] GFR. Performed By: #### 1 9123-9, 2777-1, 14665-8 ####[facility]ATORYCLIA [id number] [place] [address] [place] Glucose [Mass/Vol] 118 mg/dL High 74-99 [facility] Comment on above: Order Comment: Shira feldman Type: BLOOD SPECIMENOrdering Facility: [facility] Address: [address] [place] [address] Result Comment: The [place] [employer] [...] 1). Performed By: #### 1 9123-9, 2777-1, 77713-5 ####[facility]ORYCLIA [id number] [place] [address] [place] Potassium [Moles/Vol] 3.6 mmol/L Low 3.7-5.1 [facility] Comment on above: Order Comment: Shira feldman Type: BLOOD SPECIMENOrdering Facility: [facility] Address: [address] [phone] Performed By: #### 1 9123-9, 2777-1, 25570-6 ####[facility]ORYCLIA [id number] [address] Sodium [Moles/Vol] 140 mmol/L Normal 136-144 [facility] Comment on above: Order Comment: Speci men Type: BLOOD SPECIMENOrdering Facility: [facility] Address: [address] [place] [address] Performed By: #### 1 9123-9, 2777-, 29601-4 ####[facility]ORYCLIA [id number] [address] [place] [facility] Urea nitrogen [Mass/Vol] 15 mg/dL Normal 9-24 [facility] Comment on above: Order Comment: Speci men Type: BLOOD SPECIMENOrdering Facility: [facility] Address: [address] [place] [address] Performed By: #### 1 9123-9, 2777, 87541-1 ####[facility]ORYCLIA [id number] [address] CASE MANAGEMon 07-13-2021 CASE MANAGEM Normal [facility] CBC panel Auto (Bld)on 07-13 Erythrocyte distribution width (RBC) [Ratio] 16.2 % High 11.5-15.0 [facility] Comment on above: Order Comment: Speci men Type: BLOOD SPECIMENOrdering Facility: [facility] Address: [address] [place] [address] Performed By: #### 5 8410-2 ####[facility]ORYCLIA [id number] [address] Hematocrit (Bld) [Volume fraction] 29.5 % Low 39.0-51.0 [facility] Comment on above: Order Comment: Speci men Type: BLOOD SPECIMENOrdering Facility: [facility] Address: [address] [place] [address] Performed By: #### 5 8410-2 ####[facility]ORYCLIA [id number] [address] [place] [facility] Hemoglobin (Bld) [Mass/Vol] 8.9 g/dL Low 13.0-17.0 [facility] Comment on above: Order Comment: Speci men Type: BLOOD SPECIMENOrdering Facility: [facility] Address: [address] [place] [address] Performed By: #### 5 8410-2 ####[facility]ORYCLIA [id number] [address] MCH (RBC) [Entitic mass] 27.8 pg Normal 26.0-34.0 [facility] Comment on above: Order Comment: Speci men Type: BLOOD SPECIMENOrdering Facility: [facility] Address: [address] [place] [address] Performed By: #### 5 8410-2 ####[facility]ORYCLIA [id number] [address] MCHC (RBC) [Mass/Vol] 30.2 g/dL Low 30.5-36.0 [facility] Comment on above: Order Comment: Speci men Type: BLOOD SPECIMENOrdering Facility: [facility] Address: [address] [place] [address] Performed By: #### 5 8410-2 ####[facility]ORYCLIA [id number] [address] MCV (RBC) [Entitic vol] 92.2 fL Normal 80.0-100.0 [facility] Comment on above: Order Comment: Speci men Type: BLOOD SPECIMENOrdering Facility: [facility] Address: [address] [place] [address] Performed By: #### 5 8410-2 ####[facility]ORYCLIA [id number] [address] Nucleated RBC (Bld) [#/Vol] 10*3/uL Normal <0.01 [facility] Comment on above: Order Comment: Speci men Type: BLOOD SPECIMENOrdering Facility: [facility] Address: [address] [place] [address] Performed By: #### 5 8410-2 ####[facility]ORYCLIA [id number] [address] [place] Platelet mean volume (Bld) [Entitic vol] 9.8 fL Normal 9.0-12.7 [facility] Comment on above: Order Comment: Speci men Type: BLOOD SPECIMENOrdering Facility: [facility] Address: [address] [place] [address] Performed By: #### 5 8410-2 ####[facility]ORYCLIA [id number] [address] [place] Platelets (Bld) [#/Vol] 356 10*3/uL Normal 150-400 [facility] Comment on above: Order Comment: Speci men Type: BLOOD SPECIMENOrdering Facility: [facility] Address: [address] [place] [address] Performed By: #### 5 8410-2 ####[facility]ORYCLIA [id number] [place] [address] [place] RBC (Bld) [#/Vol] 3.20 10*6/uL Low 4.20-6.00 [facility] Comment on above: Order Comment: Speci men Type: BLOOD SPECIMENOrdering Facility: [facility] Address: [address] [place], [place] [address] Performed By: #### 5 8410-2 ####[facility]ORYCLIA [id number] [address] [place] WBC (Bld) [#/Vol] 9.20 10*3/uL Normal 3.70-11.00 [facility] Comment on above: Order Comment: Speci men Type: BLOOD SPECIMENOrdering Facility: [facility] Address: [address] [place] [address] Performed By: #### 5 8410-2 ####[facility]ORYCLIA [id number] [address] [place] CONSULT PROGon 07-13-2021 CONSULT PROG Normal [facility] CONSULT PROG Normal [facility] CONSULT PROG Normal [facility] Magnesium SerPl-mCncon 07-13 Magnesium [Mass/Vol] 2.1 mg/dL Normal 1.7-2.3 [facility] Comment on above: Order Comment: Speci men Type: BLOOD SPECIMENOrdering Facility: [facility] Address: [address] [place] [address] Performed By: #### 1 9123-9, 2777-1, 87769-4 ####[facility]ORYCLIA [id number] [address] Phosphate SerPl-mCncon 07-13 Phosphate [Mass/Vol] 3.7 mg/dL Normal 2.7-4.8 [facility] Comment on above: Order Comment: Speci men Type: BLOOD SPECIMENOrdering Facility: [facility] Address: [address] [place] [address] Performed By: #### 1 9123-9, 2777-1, 37468-7 ####[facility] [id number] [address] THERAPY NTon 07-13-2021 THERAPY NT Normal [facility] THERAPY NT Normal [facility] Vancomycin random [Mass/Vol] on 07-13-2021 Vancomycin [Mass/Vol] 31.7 ug/mL High 10.0-20.0 [facility] Comment on above: Order Comment: Speci men Type: BLOOD SPECIMENOrdering Facility: [facility] Address: [address] [place] [address] Result Comment: Refe rence ranges and high/low indicator flags are provided as general guidelines only. The treating physician must determine appropriate target levels/dosing based on the specific clinical situation. Performed By: #### 4 091-5 ####[facility]ORYCLIA [id number] [address] [place] aPTT PPPon 07-13-2021 aPTT Coag (PPP) [Time] 47.3 s High 23.0-32.4 [facility] Comment on above: Order Comment: Speci men Type: BLOOD SPECIMENOrdering Facility: [facility] Address: [address] [place] [address] Performed By: #### 1 4979-9 ####[facility]ORYCLIA [id number] [address] aPTT Coag (PPP) [Time] 51.2 s High 23.0-32.4 [facility] Comment on above: Order Comment: Speci men Type: BLOOD SPECIMENOrdering Facility: [facility] Address: [address] [place] [address] Performed By: #### 1 4979-9 ####[facility]ORYCLIA [id number] [address] aPTT Coag (PPP) [Time] 47.5 s High 23.0-32.4 [facility] Comment on above: Order Comment: Speci men Type: BLOOD SPECIMENOrdering Facility: [facility] Address: [address] [place] [address] Performed By: #### 1 4979-9 ####[facility]ORYCLIA [id number] [address] [place] [facility] Basic metabolic 2000 panelon 07-12-2021 Anion gap [Moles/Vol] 7 mmol/L Low 9-18 [facility] Comment on above: Order Comment: Speci men Type: BLOOD SPECIMENOrdering Facility: [facility] Address: [address] [place] [address] Performed By: #### 1 9123-9, 2777-1, 77100-9 ####[facility]ORYCLIA [id number] [address] [place] [facility] Calcium [Mass/Vol] 8.3 mg/dL Low 8.5-10.2 [facility] Comment on above: Order Comment: Speci men Type: BLOOD SPECIMENOrdering Facility: [facility] Address: [address] [place] [address] Performed By: #### 1 9123-9, 27711-04, 26089-8 ####[facility]ORYCLIA [id number] [place] [address] [place] Chloride [Moles/Vol] 101 mmol/L Normal 97-105 [facility] Comment on above: Order Comment: Speci men Type: BLOOD SPECIMENOrdering Facility: [facility] Address: [address] [place] [address] Performed By: #### 1 9123-9, 2776-05, 43270-9 ####[facility]ORYCLIA [id number] [address] [place] CO2 [Moles/Vol] 32 mmol/L High 22-30 [facility] Comment on above: Order Comment: Speci men Type: BLOOD SPECIMENOrdering Facility: [facility] Address: [address] [place] [address] Performed By: #### 1 9123-9, 2776-05, 88703-5 ####[facility]ORYCLIA [id number] [address] [place] Creatinine [Mass/Vol] 0.70 mg/dL Low 0.73-1.22 [facility] Comment on above: Order Comment: Speci men Type: BLOOD SPECIMENOrdering Facility: [facility] Address: [address] [place] [address] Performed By: #### 1 9123-9, 27711-04, 55318-8 ####[facility]ORYCLIA [id number] [address] [place] ESTIMATED GLOMERULAR FILTRATION RATE 100 mL/min/1.73m??? Normal >=60 [facility] Comment on above: Order Comment: Speci men Type: BLOOD SPECIMENOrdering Facility: [facility] Address: [address] [place] [address] Result Comment: Luzmaria mated Glomerular Filtration Rate [...] GFR. Performed By: #### 1 9123-9, 2777-1, 89901-8 ####[facility]ATORYCLIA [id number] [place] [address] [place] Glucose [Mass/Vol] 104 mg/dL High 74-99 [facility] Comment on above: Order Comment: Shira feldman Type: BLOOD SPECIMENOrdering Facility: [facility] Address: [address] [place] [address] Result Comment: [employer] [place] [employer] [...] 1). Performed By: #### 1 9123-9, 2777-, 30585-4 ####[facility]ORATORYIA [id number] [place] [address] [place] Potassium [Moles/Vol] 3.7 mmol/L Normal 3.7-5.1 [facility] Comment on above: Order Comment: Shira feldman Type: BLOOD SPECIMENOrdering Facility: [facility] Address: [address] [place] [address] Performed By: #### 1 9123-9, 2777-, 41780-1 ####[facility]ATORYCLIA [id number] [address] [place] [facility] Sodium [Moles/Vol] 140 mmol/L Normal 136-144 [facility] Comment on above: Order Comment: Speci men Type: BLOOD SPECIMENOrdering Facility: [facility] Address: [address] [place] [address] Performed By: #### 1 9123-9, 2777-1, 35957-0 ####[facility]ORYCLIA [id number] [address] [place] [facility] Urea nitrogen [Mass/Vol] 12 mg/dL Normal 9-24 [facility] Comment on above: Order Comment: Speci men Type: BLOOD SPECIMENOrdering Facility: [facility] Address: [address] [place] [address] Performed By: #### 1 9123-9, 2777-1, 26973-2 ####[facility]ORYCLIA [id number] [address] CBC panel Auto (Bld)on 07-12 Erythrocyte distribution width (RBC) [Ratio] 16.1 % High 11.5-15.0 [facility] Comment on above: Order Comment: Speci men Type: BLOOD SPECIMENOrdering Facility: [facility] Address: [address] [place] [address] Performed By: #### 5 8410-2 ####[facility]ORYCLIA [id number] [address] [place] Hematocrit (Bld) [Volume fraction] 28.2 % Low 39.0-51.0 [facility] Comment on above: Order Comment: Speci men Type: BLOOD SPECIMENOrdering Facility: [facility] Address: [address] [place] [address] Performed By: #### 5 8410-2 ####[facility]ORYCLIA [id number] [address] [place] Hemoglobin (Bld) [Mass/Vol] 8.5 g/dL Low 13.0-17.0 [facility] Comment on above: Order Comment: Speci men Type: BLOOD SPECIMENOrdering Facility: [facility] Address: [address] [place] [address] Performed By: #### 5 8410-2 ####[facility]ATORYCLIA [id number] [address] MCH (RBC) [Entitic mass] 26.8 pg Normal 26.0-34.0 [facility] Comment on above: Order Comment: Speci men Type: BLOOD SPECIMENOrdering Facility: [facility] Address: [address] [place] [address] Performed By: #### 5 8410-2 ####[facility]ATORYCLIA [id number] [address] MCHC (RBC) [Mass/Vol] 30.1 g/dL Low 30.5-36.0 [facility] Comment on above: Order Comment: Speci men Type: BLOOD SPECIMENOrdering Facility: [facility] Address: [address] [place] [address] Performed By: #### 5 8410-2 ####[facility]ATORYCLIA [id number] [address] MCV (RBC) [Entitic vol] 89.0 fL Normal 80.0-100.0 [facility] Comment on above: Order Comment: Speci men Type: BLOOD SPECIMENOrdering Facility: [facility] Address: [address] [place] [address] Performed By: #### 5 8410-2 ####[facility]ATORYCLIA [id number] [address] Nucleated RBC (Bld) [#/Vol] 10*3/uL Normal <0.01 [facility] Comment on above: Order Comment: Speci men Type: BLOOD SPECIMENOrdering Facility: [facility] Address: [address] [place] [address] Performed By: #### 5 8410-2 ####[facility]ATORYCLIA [id number] [address] [place] Platelet mean volume (Bld) [Entitic vol] 9.6 fL Normal 9.0-12.7 [facility] Comment on above: Order Comment: Speci men Type: BLOOD SPECIMENOrdering Facility: [facility] Address: [address] [place] [address] Performed By: #### 5 8410-2 ####[facility]ATORYCLIA [id number] [place] [address] [place] Platelets (Bld) [#/Vol] 340 10*3/uL Normal 150-400 [facility] Comment on above: Order Comment: Speci men Type: BLOOD SPECIMENOrdering Facility: [facility] Address: [address] [place] [address] Performed By: #### 5 8410-2 ####[facility]ORATORYCLIA [id number] [place] [address] [place] RBC (Bld) [#/Vol] 3.17 10*6/uL Low 4.20-6.00 [facility] Comment on above: Order Comment: Speci men Type: BLOOD SPECIMENOrdering Facility: [facility] Address: [address] [place] [address] Performed By: #### 5 8410-2 ####[facility]ORATORYCLIA [id number] [place] [address] [place] WBC (Bld) [#/Vol] 8.66 10*3/uL Normal 3.70-11.00 [facility] Comment on above: Order Comment: Speci men Type: BLOOD SPECIMENOrdering Facility: [facility] Address: [address] [place] [address] Performed By: #### 5 8410-2 ####[facility]ATORYCLIA [id number] [address] [place] CONSULTon 07-12-2021 CONSULT Normal [facility] CONSULT PROGon 07-12-2021 CONSULT PROG Normal [facility] Magnesium SerPl-mCncon 07-12 Magnesium [Mass/Vol] 2.1 mg/dL Normal 1.7-2.3 [facility] Comment on above: Order Comment: Speci men Type: BLOOD SPECIMENOrdering Facility: [facility] Address: [address] [place] [address] Performed By: #### 1 9123-9, 2777-1, 51067-2 ####[facility]ATORYCLIA [id number] [address] OF [facility] NURSING PROGon 07-12-2021 NURSING PROG Normal [facility] Phosphate SerPl-mCncon 07-12 Phosphate [Mass/Vol] 3.1 mg/dL Normal 2.7-4.8 [facility] Comment on above: Order Comment: Speci men Type: BLOOD SPECIMENOrdering Facility: [facility] Address: [address] [place] [address] Performed By: #### 1 9123-9, 2777-1, 24017-4 ####[facility]ATORYCLIA [id number] [address] OF [facility] THERAPY NTon 07-12-2021 THERAPY NT Normal [facility] aPTT PPPon 07-12-2021 aPTT Coag (PPP) [Time] 49.5 s High 23.0-32.4 [facility] Comment on above: Order Comment: Speci men Type: BLOOD SPECIMENOrdering Facility: [facility] Address: [address] [place] [address] Performed By: #### 1 4979-9 ####[facility]ATORYCLIA [id number] [address] aPTT Coag (PPP) [Time] 68.0 s High 23.0-32.4 [facility] Comment on above: Order Comment: Speci men Type: BLOOD SPECIMENOrdering Facility: [facility] Address: [address] [place] [address] Performed By: #### 1 4979-9 ####[facility]ATORYCLIA [id number] [place] [address] [place] aPTT Coag (PPP) [Time] 80.0 s High 23.0-32.4 [facility] Comment on above: Order Comment: Speci men Type: BLOOD SPECIMENOrdering Facility: [facility] Address: [address] [place] [address] Performed By: #### 1 4979-9 ####[facility]ATORYCLIA [id number] [address] [place] CASE MGT INIT ASSESon 2021 CASE MGT INIT ASSES Normal [facility] CBC panel Auto (Bld)on 07-11 Erythrocyte distribution width (RBC) [Ratio] 16.3 % High 11.5-15.0 [facility] Comment on above: Order Comment: Speci men Type: BLOOD SPECIMENOrdering Facility: [facility] Address: [address] [place] [address] Performed By: #### 5 8410-2 ####[facility]CLIA [id number] [address] [place] [facility] Hematocrit (Bld) [Volume fraction] 28.3 % Low 39.0-51.0 [facility] Comment on above: Order Comment: Speci men Type: BLOOD SPECIMENOrdering Facility: [facility] Address: [address] [place] [address] Performed By: #### 5 8410-2 ####[facility]ATORYCLIA [id number] [address] [place] Hemoglobin (Bld) [Mass/Vol] 8.8 g/dL Low 13.0-17.0 [facility] Comment on above: Order Comment: Speci men Type: BLOOD SPECIMENOrdering Facility: [facility] Address: [address] [place] [address] Performed By: #### 5 8410-2 ####[facility]ATORYCLIA [id number] [address] [place] MCH (RBC) [Entitic mass] 27.4 pg Normal 26.0-34.0 [facility] Comment on above: Order Comment: Speci men Type: BLOOD SPECIMENOrdering Facility: [facility] Address: [address] [place] [address] Performed By: #### 5 8410-2 ####[facility]ATORYCLIA [id number] [place] [address] [place] MCHC (RBC) [Mass/Vol] 31.1 g/dL Normal 30.5-36.0 [facility] Comment on above: Order Comment: Speci men Type: BLOOD SPECIMENOrdering Facility: [facility] Address: [address] [place] [address] Performed By: #### 5 8410-2 ####[facility]ATORYCLIA [id number] [address] [place] MCV (RBC) [Entitic vol] 88.2 fL Normal 80.0-100.0 [facility] Comment on above: Order Comment: Speci men Type: BLOOD SPECIMENOrdering Facility: [facility] Address: [address] [place] [address] Performed By: #### 5 8410-2 ####[facility]ATORYCLIA [id number] [address] [place] Nucleated RBC (Bld) [#/Vol] 10*3/uL Normal <0.01 [facility] Comment on above: Order Comment: Speci men Type: BLOOD SPECIMENOrdering Facility: [facility] Address: [address] [place] [address] Performed By: #### 5 8410-2 ####[facility]ATORYCLIA [id number] [address] [place] Platelet mean volume (Bld) [Entitic vol] 9.7 fL Normal 9.0-12.7 [facility] Comment on above: Order Comment: Speci men Type: BLOOD SPECIMENOrdering Facility: [facility] Address: [address] [place] [address] Performed By: #### 5 8410-2 ####[facility]ATORYCLIA [id number] [address] Platelets (Bld) [#/Vol] 315 10*3/uL Normal 150-400 [facility] Comment on above: Order Comment: Speci men Type: BLOOD SPECIMENOrdering Facility: [facility] Address: [address] [place] [address] Performed By: #### 5 8410-2 ####[facility]ATORYCLIA [id number] [address] STATES [place] [facility] RBC (Bld) [#/Vol] 3.21 10*6/uL Low 4.20-6.00 [facility] Comment on above: Order Comment: Speci men Type: BLOOD SPECIMENOrdering Facility: [facility] Address: [address] [place] [address] Performed By: #### 5 8410-2 ####[facility]ATORYCLIA [id number] [address] WBC (Bld) [#/Vol] 9.18 10*3/uL Normal 3.70-11.00 [facility] Comment on above: Order Comment: Speci men Type: BLOOD SPECIMENOrdering Facility: [facility] Address: [address] [place] [address] Performed By: #### 5 8410-2 ####[facility]ATORYCLIA [id number] [address] CONSULT PROGon 07-11-2021 CONSULT PROG Normal [facility] CT BRAIN WO IVCONon 07-12-19 CT BRAIN WO IVCON Normal [facility] Magnesium SerPl-mCncon 07-11 Magnesium [Mass/Vol] 2.1 mg/dL Normal 1.7-2.3 [facility] Comment on above: Order Comment: Speci men Type: BLOOD SPECIMENOrdering Facility: [facility] Address: [address] [place] [address] Performed By: #### 1 9123-9, 2777-1 ####[facility]ATORYCLIA [id number] [address] NURSING PROGon 07-11-2021 NURSING PROG Normal [facility] NURSING PROG Normal [facility] Phosphate SerPl-mCncon 07-11 Phosphate [Mass/Vol] 3.4 mg/dL Normal 2.7-4.8 [facility] Comment on above: Order Comment: Speci men Type: BLOOD SPECIMENOrdering Facility: [facility] Address: [address] [place] [address] Performed By: #### 1 9123-9, 2777-1 ####[facility]ATORYCLIA [id number] [address] THERAPY NTon 07-11-2021 THERAPY NT Normal [facility] Vancomycin random [Mass/Vol] on 07-11-2021 Vancomycin [Mass/Vol] 28.6 ug/mL High 10.0-20.0 [facility] Comment on above: Order Comment: Speci men Type: BLOOD SPECIMENOrdering Facility: [facility] Address: [address] [place] [address] Result Comment: Refe rence ranges and high/low indicator flags are provided as general guidelines only. The treating physician must determine appropriate target levels/dosing based on the specific clinical situation. Performed By: #### 4 091-5 ####[facility]ATORYCLIA [id number] [address] aPTT PPPon 07-11-2021 aPTT Coag (PPP) [Time] 62.0 s High 23.0-32.4 [facility] Comment on above: Order Comment: Speci men Type: BLOOD SPECIMENOrdering Facility: [facility] Address: [address] [place] [address] Performed By: #### 1 4979-9 ####[facility]ATORYCLIA [id number] [address] aPTT Coag (PPP) [Time] 52.7 s High 23.0-32.4 [facility] Comment on above: Order Comment: Speci men Type: BLOOD SPECIMENOrdering Facility: [facility] Address: [address] [place] [address] Performed By: #### 1 4979-9 ####[facility]ATORYCLIA [id number] [place] [address] [place] aPTT Coag (PPP) [Time] 29.9 s Normal 23.0-32.4 [facility] Comment on above: Order Comment: Speci men Type: BLOOD SPECIMENOrdering Facility: [facility] Address: [address] [place] [address] Performed By: #### 1 4979-9 ####[facility]ATORYCLIA [id number] [place] [address] [place] Basic metabolic 2000 panelon 07-10-2021 Anion gap [Moles/Vol] 14 mmol/L Normal 9-18 [facility] Comment on above: Order Comment: Speci men Type: BLOOD SPECIMENOrdering Facility: [facility] Address: [address] [place] [address] Performed By: #### 1 9123-9, 2777-1, 60023-9 ####[facility]ITALCLIA [id number] [place] [address] [place] Calcium [Mass/Vol] 8.5 mg/dL Normal 8.5-10.2 [facility] Comment on above: Order Comment: Speci men Type: BLOOD SPECIMENOrdering Facility: [facility] Address: [address] [place] [address] Performed By: #### 1 9123-9, 2777-1, 38838-8 ####[facility]ATORYCLIA [id number] [address] [place] Chloride [Moles/Vol] 100 mmol/L Normal 97-105 [facility] Comment on above: Order Comment: Speci men Type: BLOOD SPECIMENOrdering Facility: [facility] Address: [address] [place] [address] Performed By: #### 1 9123-9, 2777-1, 90599-8 ####[facility]PITALCLIA [id number] [address] STATES [place] [facility] CO2 [Moles/Vol] 27 mmol/L Normal 22-30 [facility] Comment on above: Order Comment: Speci men Type: BLOOD SPECIMENOrdering Facility: [facility] Address: [address] [place] [address] Performed By: #### 1 9123-9, 2777, 60128-8 ####[facility]ITALCLIA [id number] [address] Creatinine [Mass/Vol] 0.66 mg/dL Low 0.73-1.22 [facility] Comment on above: Order Comment: Speci men Type: BLOOD SPECIMENOrdering Facility: [facility] Address: [address] [place] [address] Performed By: #### 1 9123-9, 2777, 63803-5 ####[facility] SERVICESIA [id number] [address] ESTIMATED GLOMERULAR FILTRATION RATE 102 mL/min/1.73m??? Normal >=60 [facility] Comment on above: Order Comment: Speci men Type: BLOOD SPECIMENOrdering Facility: [facility] Address: [address] [place] [address] Result Comment: Luzmaria mated Glomerular Filtration Rate [...] GFR. Performed By: #### 1 9123-9, 2777-1, 97165-2 ####[facility]ORATORYCLIA [id number] [place] [address] [place] Glucose [Mass/Vol] 93 mg/dL Normal 74-99 [facility] Comment on above: Order Comment: Shira feldman Type: BLOOD SPECIMENOrdering Facility: [facility] Address: [address] [place], [place] [address] Result Comment: [employer] [place] [employer] [...] 1). Performed By: #### 1 9123-9, 2777-, 01631-8 ####[facility]ORATORYCLIA [id number] [place] [address] [place] Potassium [Moles/Vol] 3.5 mmol/L Low 3.7-5.1 [facility] Comment on above: Order Comment: Shira feldman Type: BLOOD SPECIMENOrdering Facility: [facility] Address: [address] [place], [place] [address] Performed By: #### 1 9123-9, 2777-, 44857-5 ####[facility]ORATORYCLIA [id number] [place] [address] [place] Sodium [Moles/Vol] 141 mmol/L Normal 136-144 [facility] Comment on above: Order Comment: Shira feldman Type: BLOOD SPECIMENOrdering Facility: [facility] Address: [address] [place], [place] [address] Performed By: #### 1 9123-9, 2777-, 71262-6 ####[facility]ORATORYCLIA [id number] [place] [address] [place] Urea nitrogen [Mass/Vol] 11 mg/dL Normal 9-24 [facility] Comment on above: Order Comment: Speci men Type: BLOOD SPECIMENOrdering Facility: [facility] Address: [address] [place] [address] Performed By: #### 1 9123-9, 2777-1, 05940-6 ####[facility]ORATORYCLIA [id number] [address] [facility] CBC panel Auto (Bld)on 07-10 Erythrocyte distribution width (RBC) [Ratio] 16.2 % High 11.5-15.0 [facility] Comment on above: Order Comment: Speci men Type: BLOOD SPECIMENOrdering Facility: [facility] Address: [address] [place] [address] Performed By: #### 5 8410-2 ####[facility]ATORYCLIA [id number] [address] [facility] Hematocrit (Bld) [Volume fraction] 30.6 % Low 39.0-51.0 [facility] Comment on above: Order Comment: Speci men Type: BLOOD SPECIMENOrdering Facility: [facility] Address: [address] [place] [address] Performed By: #### 5 8410-2 ####[facility]ATORYCLIA [id number] [address] [place] [facility] Hemoglobin (Bld) [Mass/Vol] 9.6 g/dL Low 13.0-17.0 [facility] Comment on above: Order Comment: Speci men Type: BLOOD SPECIMENOrdering Facility: [facility] Address: [address] [place] [address] Performed By: #### 5 8410-2 ####[facility]ATORYCLIA [id number] [address] MCH (RBC) [Entitic mass] 28.3 pg Normal 26.0-34.0 [facility] Comment on above: Order Comment: Speci men Type: BLOOD SPECIMENOrdering Facility: [facility] Address: [address] [place] [address] Performed By: #### 5 8410-2 ####[facility]ATORYCLIA [id number] [address] MCHC (RBC) [Mass/Vol] 31.4 g/dL Normal 30.5-36.0 [facility] Comment on above: Order Comment: Speci men Type: BLOOD SPECIMENOrdering Facility: [facility] Address: [address] [place] [address] Performed By: #### 5 8410-2 ####[facility]ATORYCLIA [id number] [address] [place] MCV (RBC) [Entitic vol] 90.3 fL Normal 80.0-100.0 [facility] Comment on above: Order Comment: Speci men Type: BLOOD SPECIMENOrdering Facility: [facility] Address: [address] [place] [address] Performed By: #### 5 8410-2 ####[facility]ATORYCLIA [id number] [address] OF [facility] Nucleated RBC (Bld) [#/Vol] 10*3/uL Normal <0.01 [facility] Comment on above: Order Comment: Speci men Type: BLOOD SPECIMENOrdering Facility: [facility] Address: [address] [place] [address] Performed By: #### 5 8410-2 ####[facility]ATORYCLIA [id number] [address] Platelet mean volume (Bld) [Entitic vol] 9.7 fL Normal 9.0-12.7 [facility] Comment on above: Order Comment: Speci men Type: BLOOD SPECIMENOrdering Facility: [facility] Address: [address] [place] [address] Performed By: #### 5 8410-2 ####[facility]ATORYCLIA [id number] [address] [place] Platelets (Bld) [#/Vol] 306 10*3/uL Normal 150-400 [facility] Comment on above: Order Comment: Speci men Type: BLOOD SPECIMENOrdering Facility: [facility] Address: [address] [place] [address] Performed By: #### 5 8410-2 ####[facility]ATORYCLIA [id number] [place] [address] [place] RBC (Bld) [#/Vol] 3.39 10*6/uL Low 4.20-6.00 [facility] Comment on above: Order Comment: Speci men Type: BLOOD SPECIMENOrdering Facility: [facility] Address: [address] [place] [address] Performed By: #### 5 8410-2 ####[facility]ATORYCLIA [id number] [address] [place] [facility] WBC (Bld) [#/Vol] 9.81 10*3/uL Normal 3.70-11.00 [facility] Comment on above: Order Comment: Speci men Type: BLOOD SPECIMENOrdering Facility: [facility] Address: [address] [place] [address] Performed By: #### 5 8410-2 ####[facility]ORYCLIA [id number] [address] [place] CONSULTon 07-10-2021 CONSULT Normal [facility] CONSULT Normal [facility] Magnesium SerPl-mCncon 07-10 Magnesium [Mass/Vol] 1.9 mg/dL Normal 1.7-2.3 [facility] Comment on above: Order Comment: Speci men Type: BLOOD SPECIMENOrdering Facility: [facility] Address: [address] [place] [address] Performed By: #### 1 9123-9, 2777-1, 80180-5 ####[facility]ATORYCLIA [id number] [place] [address] [place] NURSING PROGon 07-10-2021 NURSING PROG Normal [facility] NURSING PROG Normal [facility] NUTRITIONon 07-10-2021 NUTRITION Normal [facility] Phosphate SerPl-mCncon 07-10 Phosphate [Mass/Vol] 3.6 mg/dL Normal 2.7-4.8 [facility] Comment on above: Order Comment: Speci men Type: BLOOD SPECIMENOrdering Facility: [facility] Address: [address] [place] [address] Performed By: #### 1 9123-9, 2777-1, 98013-3 ####[facility]ORYCLIA [id number] [place] [address] [place] US DVT LOWER BILon US DVT LOWER RAINER Normal [facility] aPTT PPPon 07-10-2021 aPTT Coag (PPP) [Time] 28.8 s Normal 23.0-32.4 [facility] Comment on above: Order Comment: Speci men Type: BLOOD SPECIMENOrdering Facility: [facility] Address: [address] [place] [address] Performed By: #### 1 4979-9 ####[facility]ATORYCLIA [id number] [address] aPTT Coag (PPP) [Time] 28.4 s Normal 23.0-32.4 [facility] Comment on above: Order Comment: Speci men Type: BLOOD SPECIMENOrdering Facility: [facility] Address: [address] [place] [address] Performed By: #### 1 4979-9 ####[facility]ORYCLIA [id number] [place] [address] [place] ALLIED HEALTHon 07-09-2021 ALLIED HEALTH Normal [facility] Basic metabolic 2000 panelon 07-09-2021 Anion gap [Moles/Vol] 9 mmol/L Normal 9-18 [facility] Comment on above: Order Comment: Speci men Type: BLOOD SPECIMENOrdering Facility: [facility] Address: [address] [place] [address] Performed By: #### 1 9123-9, 2777, 06854-6 ####[facility]ATORYCLIA [id number] [place] [address] [place] Calcium [Mass/Vol] 8.3 mg/dL Low 8.5-10.2 [facility] Comment on above: Order Comment: Speci men Type: BLOOD SPECIMENOrdering Facility: [facility] Address: [address] [place] [address] Performed By: #### 1 9123-9, 27711-04, 08537-1 ####[facility]ATORYCLIA [id number] [place] [address] [place] Chloride [Moles/Vol] 100 mmol/L Normal 97-105 [facility] Comment on above: Order Comment: Speci men Type: BLOOD SPECIMENOrdering Facility: [facility] Address: [address] [place] [address] Performed By: #### 1 9123-9, 27711-04, 42183-8 ####[facility]ORYCLIA [id number] [address] [place] CO2 [Moles/Vol] 29 mmol/L Normal 22-30 [facility] Comment on above: Order Comment: Speci men Type: BLOOD SPECIMENOrdering Facility: [facility] Address: [address] [place] [address] Performed By: #### 1 9123-9, 2776-05, 84673-1 ####[facility]ATORYCLIA [id number] [place] [address] [place] Creatinine [Mass/Vol] 0.61 mg/dL Low 0.73-1.22 [facility] Comment on above: Order Comment: Speci men Type: BLOOD SPECIMENOrdering Facility: [facility] Address: [address] [place] [address] Performed By: #### 1 9123-9, 27711-04, 41630-5 ####[facility]ORATORYCLIA [id number] [place] [address] [place] ESTIMATED GLOMERULAR FILTRATION RATE 104 mL/min/1.73m??? Normal >=60 [facility] Comment on above: Order Comment: Shira feldman Type: BLOOD SPECIMENOrdering Facility: [facility] Address: [address] [place], [place] [address] Result Comment: Luzmaria mated Glomerular Filtration Rate [...] GFR. Performed By: #### 1 9123-9, 2777-1, 97976-4 ####[facility]ITALCLIA [id number] [place] [address] [place] Glucose [Mass/Vol] 106 mg/dL High 74-99 [facility] Comment on above: Order Comment: Shira feldman Type: BLOOD SPECIMENOrdering Facility: [facility] Address: [address] [place] [address] Result Comment: [employer] [place] [employer] [...] 1). Performed By: #### 1 9123-9, 2777-1, 42640-0 ####[facility]ORY[facility] [id number] [place] [address] [place] Potassium [Moles/Vol] 3.6 mmol/L Low 3.7-5.1 [facility] Comment on above: Order Comment: Speci men Type: BLOOD SPECIMENOrdering Facility: [facility] Address: [address] [place] [address] Performed By: #### 1 9123-9, 2777-, 56448-0 ####[facility]ORYCL[facility] [id number] [address] [place] [facility] Sodium [Moles/Vol] 138 mmol/L Normal 136-144 [facility] Comment on above: Order Comment: Speci men Type: BLOOD SPECIMENOrdering Facility: [facility] Address: [address] [place] [address] Performed By: #### 1 9123-9, 27711-04, 79993-2 ####[facility]ORYCLIA [id number] [address] [place] [facility] Urea nitrogen [Mass/Vol] 12 mg/dL Normal 9-24 [facility] Comment on above: Order Comment: Speci men Type: BLOOD SPECIMENOrdering Facility: [facility] Address: [address] [place] [address] Performed By: #### 1 9123-9, 27711-04, 89617-6 ####[facility]ATORYCLIA [id number] [address] STATES [place] [facility] CBC panel Auto (Bld)on 07-09 Erythrocyte distribution width (RBC) [Ratio] 16.2 % High 11.5-15.0 [facility] Comment on above: Order Comment: Speci men Type: BLOOD SPECIMENOrdering Facility: [facility] Address: [address] [place] [address] Performed By: #### 5 8410-2 ####[facility]ATORYCLIA [id number] [address] Hematocrit (Bld) [Volume fraction] 29.0 % Low 39.0-51.0 [facility] Comment on above: Order Comment: Speci men Type: BLOOD SPECIMENOrdering Facility: [facility] Address: [address] [place] [address] Performed By: #### 5 8410-2 ####[facility]ATORYCLIA [id number] [address] Hemoglobin (Bld) [Mass/Vol] 8.8 g/dL Low 13.0-17.0 [facility] Comment on above: Order Comment: Speci men Type: BLOOD SPECIMENOrdering Facility: [facility] Address: [address] [place] [address] Performed By: #### 5 8410-2 ####[facility]ATORYCLIA [id number] [address] MCH (RBC) [Entitic mass] 27.0 pg Normal 26.0-34.0 [facility] Comment on above: Order Comment: Speci men Type: BLOOD SPECIMENOrdering Facility: [facility] Address: [address] [place] [address] Performed By: #### 5 8410-2 ####[facility]ATORYCLIA [id number] [address] MCHC (RBC) [Mass/Vol] 30.3 g/dL Low 30.5-36.0 [facility] Comment on above: Order Comment: Speci men Type: BLOOD SPECIMENOrdering Facility: [facility] Address: [address] [place] [address] Performed By: #### 5 8410-2 ####[facility]ORYCLIA [id number] [address] MCV (RBC) [Entitic vol] 89.0 fL Normal 80.0-100.0 [facility] Comment on above: Order Comment: Speci men Type: BLOOD SPECIMENOrdering Facility: [facility] Address: [address] [place] [address] Performed By: #### 5 8410-2 ####[facility]ORYCLIA [id number] [address] Nucleated RBC (Bld) [#/Vol] 10*3/uL Normal <0.01 [facility] Comment on above: Order Comment: Speci men Type: BLOOD SPECIMENOrdering Facility: [facility] Address: [address] [place], [place] [address] Performed By: #### 5 8410-2 ####[facility]ATORYCLIA [id number] [address] [place] Platelet mean volume (Bld) [Entitic vol] 9.8 fL Normal 9.0-12.7 [facility] Comment on above: Order Comment: Speci men Type: BLOOD SPECIMENOrdering Facility: [facility] Address: [address] [place] [address] Performed By: #### 5 8410-2 ####[facility]ORYCLIA [id number] [address] [place] Platelets (Bld) [#/Vol] 281 10*3/uL Normal 150-400 [facility] Comment on above: Order Comment: Speci men Type: BLOOD SPECIMENOrdering Facility: [facility] Address: [address] [place], [place] [address] Performed By: #### 5 8410-2 ####[facility]ATORYCLIA [id number] [place] [address] [place] RBC (Bld) [#/Vol] 3.26 10*6/uL Low 4.20-6.00 [facility] Comment on above: Order Comment: Speci men Type: BLOOD SPECIMENOrdering Facility: [facility] Address: [address] [place], [place] [address] Performed By: #### 5 8410-2 ####[facility]ORYCLIA [id number] [address] [place] WBC (Bld) [#/Vol] 9.12 10*3/uL Normal 3.70-11.00 [facility] Comment on above: Order Comment: Speci men Type: BLOOD SPECIMENOrdering Facility: [facility] Address: [address] [place], [place] [address] Performed By: #### 5 8410-2 ####[facility]ATORYCLIA [id number] [address] OF [facility] CONSULT PROGon 07-09-2021 CONSULT PROG Normal [facility] CONSULT PROG Normal [facility] HISTORY PHYSICALon HISTORY PHYSICAL Normal [facility] Magnesium SerPl-mCncon 07-09 Magnesium [Mass/Vol] 1.9 mg/dL Normal 1.7-2.3 [facility] Comment on above: Order Comment: Speci men Type: BLOOD SPECIMENOrdering Facility: [facility] Address: [address] [place] [address] Performed By: #### 1 9123-9, 2777-1, 40656-0 ####[facility]ORYCLIA [id number] [address] Phosphate SerPl-ncon 07-09 Phosphate [Mass/Vol] 3.6 mg/dL Normal 2.7-4.8 [facility] Comment on above: Order Comment: Speci men Type: BLOOD SPECIMENOrdering Facility: [facility] Address: [address] [place] [address] Performed By: #### 1 9123-9, 2777-1, 76936-2 ####[facility]ATORYCLIA [id number] [address] [place] THERAPY NTon 07-09-2021 THERAPY NT Normal [facility] XR ABDOMEN 1V SUPINEon 07-09 XR ABDOMEN 1V SUPINE Normal [facility] ALLIED HEALTHon 07-08-2021 ALLIED HEALTH Normal [facility] [...] on above: Performed By: #### 6 00-7 ####[facility]ATORYCLIA [id number] [address] Bacteria identified Cx Nom (Bld) CULTURE, BLOOD: No growth 5 days [facility] Comment on above: Performed By: #### 6 00-7 ####[facility]ORYCLIA [id number] [address] Bacteria CSF Culton 07-09-19 22 Bacteria identified Cx Nom (CSF) CULTURE, CSF: No growth 14 days GRAM STAIN: No organisms seen No Polymorphonuclear Leukocytes Few Red Blood Cells Gram stain performed on cytospun specimen. Normal [facility] Comment on above: Performed By: #### 6 06-4 ####[facility]ATORYCLIA [id number] [address] Bacteria Ur Culton 2 Bacteria identified Cx Nom (U) ORGANISM ID: 1 10,000 -<50,000 CFU/ml Proteus species Insignificant colony count. No further workup. ORGANISM ID: 2 <10,000 CFU/ml Normal urogenital chris Normal [facility] Comment on above: Performed By: #### 6 30-4 ####[facility]ATORYCLIA [id number] [address] Bacteria Wnd Culton 07-09-19 22 Bacteria identified Cx Nom (Wound) ORGANISM ID: 1 Coagulase negative staphylococcus Growth in Enrichment Broth Only No susceptibility testing done. Call lab within 72 hours to initiate work-up if clinically indicated. GRAM STAIN: Account credited. Not performed on this specimen type. [facility] Comment on above: Performed By: #### 6 462-6 ####[facility]ATORYCLIA [id number] [address] Bacteria identified Cx Nom (Wound) ORGANISM ID: 1 Rare Coagulase negative staphylococcus No susceptibility testing done. Call lab within 72 hours to initiate work-up if clinically indicated. GRAM STAIN: Account credited. Not performed on this specimen type. [facility] Comment on above: Performed By: #### 6 462-6 ####[facility]ATORYCLIA [id number] [place] [address] [place] Bacteria identified Cx Nom (Wound) CULTURE, INTRAOPERATIVE HARDWARE: No growth 14 days GRAM STAIN: Account credited. Not performed on this specimen type. Normal [facility] Comment on above: Performed By: #### 6 462-6 ####[facility]ATORYCLIA [id number] [place] [address] [place] Basic metabolic 2000 panelon 07-08-2021 Anion gap [Moles/Vol] 9 mmol/L Normal 9-18 [facility] Comment on above: Order Comment: Speci men Type: BLOOD SPECIMENOrdering Facility: [facility] Address: [address] [place] [address] Performed By: #### 2 4321-2 ####[facility]ATORYCLIA [id number] [place] [address] [place] Calcium [Mass/Vol] 8.5 mg/dL Normal 8.5-10.2 [facility] Comment on above: Order Comment: Speci men Type: BLOOD SPECIMENOrdering Facility: [facility] Address: [address] [place] [address] Performed By: #### 2 4321-2 ####[facility]ATORYCLIA [id number] [address] [place] Chloride [Moles/Vol] 98 mmol/L Normal 97-105 [facility] Comment on above: Order Comment: Speci men Type: BLOOD SPECIMENOrdering Facility: [facility] Address: [address] [place] [address] Performed By: #### 2 4321-2 ####[facility]ORYCLIA [id number] [address] [place] CO2 [Moles/Vol] 31 mmol/L High 22-30 [facility] Comment on above: Order Comment: Speci men Type: BLOOD SPECIMENOrdering Facility: [facility] Address: [address] [place] [address] Performed By: #### 2 4321-2 ####[facility]ATORYCLIA [id number] [address] [place] [facility] Creatinine [Mass/Vol] 0.64 mg/dL Low 0.73-1.22 [facility] Comment on above: Order Comment: Shira francia Type: BLOOD SPECIMENOrdering Facility: [facility] Address: [address] [place] [address] Performed By: #### 2 4321-2 ####[facility]ATORYCLIA [id number] [address] ESTIMATED GLOMERULAR FILTRATION RATE 102 mL/min/1.73m??? Normal >=60 [facility] Comment on above: Order Comment: Shira feldman Type: BLOOD SPECIMENOrdering Facility: [facility] Address: [address] [place] [address] Result Comment: Luzmaria mated Glomerular Filtration Rate [...] actual GFR. Performed By: #### 2 4321-2 ####[facility]ATORYCLIA [id number] [address] [place] Glucose [Mass/Vol] 114 mg/dL High 74-99 [facility] Comment on above: Order Comment: Johncara feldman Type: BLOOD SPECIMENOrdering Facility: [facility] Address: [address] [place] [address] Result Comment: The [place] [employer] [...] 2016.39(Suppl 1). Performed By: #### 2 4321-2 ####[facility]ATORYCLIA [id number] [place] [address] [place] Potassium [Moles/Vol] 3.4 mmol/L Low 3.7-5.1 [facility] Comment on above: Order Comment: Speci men Type: BLOOD SPECIMENOrdering Facility: [facility] Address: [address] [place] [address] Performed By: #### 2 4321-2 ####[facility]ATORYCLIA [id number] [address] [place] [facility] Sodium [Moles/Vol] 138 mmol/L Normal 136-144 [facility] Comment on above: Order Comment: Speci men Type: BLOOD SPECIMENOrdering Facility: [facility] Address: [address] [place] [address] Performed By: #### 2 4321-2 ####[facility]ORYCLIA [id number] [address] [place] [facility] Urea nitrogen [Mass/Vol] 14 mg/dL Normal 9-24 [facility] Comment on above: Order Comment: Speci men Type: BLOOD SPECIMENOrdering Facility: [facility] Address: [address] [address] Performed By: #### 2 4321-2 ####[facility]ATORYCLIA [id number] [place] [address] [place] CBC W Auto Differential pane l (Bld)on 07-08-2021 Basophils (Bld) [#/Vol] 0.05 10*3/uL Normal <0.11 [facility] Comment on above: Order Comment: Speci men Type: BLOOD SPECIMENOrdering Facility: [facility] Address: [address] [address] Performed By: #### 5 7021-8 ####[facility]ATORYCLIA [id number] [address] [place] Basophils/100 WBC (Bld) 0.4 % Normal [facility] Comment on above: Order Comment: Speci men Type: BLOOD SPECIMENOrdering Facility: [facility] Address: [address] [place] [address] Performed By: #### 5 7021-8 ####[facility]ATORYCLIA [id number] [address] [place] Differential cell count method Nom (Bld) Auto Normal [facility] Comment on above: Order Comment: Speci men Type: BLOOD SPECIMENOrdering Facility: [facility] Address: [address] [place] [address] Performed By: #### 5 7021-8 ####[facility]ATORYCLIA [id number] [address] [place] Eosinophils (Bld) [#/Vol] 0.68 10*3/uL High <0.46 [facility] Comment on above: Order Comment: Speci men Type: BLOOD SPECIMENOrdering Facility: [facility] Address: [address] [place] [address] Performed By: #### 5 7021-8 ####[facility]ATORYCLIA [id number] [address] Eosinophils/100 WBC (Bld) 5.4 % Normal [facility] Comment on above: Order Comment: Speci men Type: BLOOD SPECIMENOrdering Facility: [facility] Address: [address] [place] [address] Performed By: #### 5 7021-8 ####[facility]ATORYCLIA [id number] [address] [place] Erythrocyte distribution width (RBC) [Ratio] 16.3 % High 11.5-15.0 [facility] Comment on above: Order Comment: Speci men Type: BLOOD SPECIMENOrdering Facility: [facility] Address: [address] [address] Performed By: #### 5 7021-8 ####[facility]ATORYCLIA [id number] [address] Hematocrit (Bld) [Volume fraction] 35.7 % Low 39.0-51.0 [facility] Comment on above: Order Comment: Speci men Type: BLOOD SPECIMENOrdering Facility: [facility] Address: [address] [place] [address] Performed By: #### 5 7021-8 ####[facility]ATORYCLIA [id number] [address] Hemoglobin (Bld) [Mass/Vol] 10.8 g/dL Low 13.0-17.0 [facility] Comment on above: Order Comment: Speci men Type: BLOOD SPECIMENOrdering Facility: [facility] Address: [address] [place] [address] Performed By: #### 5 7021-8 ####[facility]ATORYCLIA [id number] [address] IMMATURE GRAN % 0.4 % Normal [facility] Comment on above: Order Comment: Speci men Type: BLOOD SPECIMENOrdering Facility: [facility] Address: [address] [place] [address] Performed By: #### 5 7021-8 ####[facility]ATORYCLIA [id number] [address] IMMATURE GRAN ABS 0.05 k/uL Normal <0.10 [facility] Comment on above: Order Comment: Speci men Type: BLOOD SPECIMENOrdering Facility: [facility] Address: [address] [place] [address] Performed By: #### 5 7021-8 ####[facility]ATORYCLIA [id number] [address] OF [facility] Lymphocytes (Bld) [#/Vol] 1.85 10*3/uL Normal 1.00-4.00 [facility] Comment on above: Order Comment: Speci men Type: BLOOD SPECIMENOrdering Facility: [facility] Address: [address] [place] [address] Performed By: #### 5 7021-8 ####[facility]ATORYCLIA [id number] [address] Lymphocytes/100 WBC (Bld) 14.7 % Normal [facility] Comment on above: Order Comment: Speci men Type: BLOOD SPECIMENOrdering Facility: [facility] Address: [address] [place] [address] Performed By: #### 5 7021-8 ####[facility]ORYCLIA [id number] [address] MCH (RBC) [Entitic mass] 27.1 pg Normal 26.0-34.0 [facility] Comment on above: Order Comment: Speci men Type: BLOOD SPECIMENOrdering Facility: [facility] Address: [address] [place] [address] Performed By: #### 5 7021-8 ####[facility]ORYCLIA [id number] [address] MCHC (RBC) [Mass/Vol] 30.3 g/dL Low 30.5-36.0 [facility] Comment on above: Order Comment: Speci men Type: BLOOD SPECIMENOrdering Facility: [facility] Address: [address] [place] [address] Performed By: #### 5 7021-8 ####[facility]ATORYCLIA [id number] [address] MCV (RBC) [Entitic vol] 89.7 fL Normal 80.0-100.0 [facility] Comment on above: Order Comment: Speci men Type: BLOOD SPECIMENOrdering Facility: [facility] Address: [address] [place] [address] Performed By: #### 5 7021-8 ####[facility]ATORYCLIA [id number] [address] [place] Monocytes (Bld) [#/Vol] 0.87 10*3/uL High <0.87 [facility] Comment on above: Order Comment: Speci men Type: BLOOD SPECIMENOrdering Facility: [facility] Address: [address] [place] [address] Performed By: #### 5 7021-8 ####[facility]ATORYCLIA [id number] [place] [address] [place] Monocytes/100 WBC (Bld) 6.9 % Normal [facility] Comment on above: Order Comment: Speci men Type: BLOOD SPECIMENOrdering Facility: [facility] Address: [address] [place] [address] Performed By: #### 5 7021-8 ####[facility]ATORYCLIA [id number] [address] [place] Neutrophils (Bld) [#/Vol] 9.05 10*3/uL High 1.45-7.50 [facility] Comment on above: Order Comment: Speci men Type: BLOOD SPECIMENOrdering Facility: [facility] Address: [address] [place] [address] Performed By: #### 5 7021-8 ####[facility]ORYCLIA [id number] [address] [place] Neutrophils/100 WBC (Bld) 72.2 % Normal [facility] Comment on above: Order Comment: Speci men Type: BLOOD SPECIMENOrdering Facility: [facility] Address: [address] [place] [address] Performed By: #### 5 7021-8 ####[facility]ATORYCLIA [id number] [place] [address] [place] Nucleated RBC (Bld) [#/Vol] 10*3/uL Normal <0.01 [facility] Comment on above: Order Comment: Speci men Type: BLOOD SPECIMENOrdering Facility: [facility] Address: [address] [place] [address] Performed By: #### 5 7021-8 ####[facility]ATORYCLIA [id number] [address] [place] Nucleated RBC/100 WBC (Bld) [Ratio] 0.0 /100 WBC Normal [facility] Comment on above: Order Comment: Speci men Type: BLOOD SPECIMENOrdering Facility: [facility] Address: [address] [place] [address] Performed By: #### 5 7021-8 ####[facility]ATORYCLIA [id number] [address] [place] Platelet mean volume (Bld) [Entitic vol] 9.9 fL Normal 9.0-12.7 [facility] Comment on above: Order Comment: Speci men Type: BLOOD SPECIMENOrdering Facility: [facility] Address: [address] [place] [address] Performed By: #### 5 7021-8 ####[facility]ATORYCLIA [id number] [address] [place] Platelets (Bld) [#/Vol] 335 10*3/uL Normal 150-400 [facility] Comment on above: Order Comment: Speci men Type: BLOOD SPECIMENOrdering Facility: [facility] Address: [address] [place] [address] Performed By: #### 5 7021-8 ####[facility]ATORYCLIA [id number] [address] [place] RBC (Bld) [#/Vol] 3.98 10*6/uL Low 4.20-6.00 [facility] Comment on above: Order Comment: Speci men Type: BLOOD SPECIMENOrdering Facility: [facility] Address: [address] [place] [address] Performed By: #### 5 7021-8 ####[facility]ATORYCLIA [id number] [address] [place] WBC (Bld) [#/Vol] 12.55 10*3/uL High 3.70-11.00 [facility] Comment on above: Order Comment: Speci men Type: BLOOD SPECIMENOrdering Facility: [facility] Address: [address] [place] [address] Performed By: #### 5 7021-8 ####[facility]ATORYCLIA [id number] [address] [place] CK CREATINE KINASEon 022 CK [Catalytic activity/Vol] 72 U/L Normal 51-298 [facility] Comment on above: Order Comment: Speci men Type: BLOOD SPECIMENOrdering Facility: [facility] Address: [address] [place] [address] Performed By: #### C K, 13718-3 ####[facility]ATORYCLIA [id number] [address] [place] CONSULT PROGon 07-08-2021 CONSULT PROG Normal [facility] CONSULT PROG Normal [facility] CSF MANUAL DIFFon 07-08-2021 DIF TTL, CSF 3 cells counted Normal [facility] Comment on above: Order Comment: Speci men Type: CEREBROSPINAL FLUIDOrdering Facility: [facility] Address: [address] [place] [address] Performed By: #### 3 4563-7, [id number] ####[facility]ATORYCLIA [id number] [place] [address] [place] LYMPH%, CSF 33 % Low 50-90 [facility] Comment on above: Order Comment: Speci men Type: CEREBROSPINAL FLUIDOrdering Facility: [facility] Address: [address] [place] [address] Performed By: #### 3 4563-7, [id number] ####[facility]ATORYCLIA [id number] [place] [address] [place] MONO%, CSF 67 % High 10-50 [facility] Comment on above: Order Comment: Speci men Type: CEREBROSPINAL FLUIDOrdering Facility: [facility] Address: [address] [place] [address] Performed By: #### 3 4563-7, [id number] ####[facility]ATORYCLIA [id number] [address] [place] CT ABD/PEL W [...] Comment: Speci men Type: CEREBROSPINAL FLUIDOrdering Facility: [facility] Address: [address] [place] [address] Performed By: #### 3 4563-7, [id number] ####[facility] LABORATORYCLIA [id number] [address] [place] Clarity (Unsp spec) Clear Normal Clear [facility] Comment on above: Order Comment: Speci men Type: CEREBROSPINAL FLUIDOrdering Facility: [facility] Address: [address] [place] [address] Performed By: #### 3 4563-7, [id number] ####[facility] LABORATORYCLIA [id number] [address] [place] Color (CSF) Colorless Normal Colorless [facility] Comment on above: Order Comment: Speci men Type: CEREBROSPINAL FLUIDOrdering Facility: [facility] Address: [address] [address] Performed By: #### 3 4563-7, [id number] ####[facility] LABORATORYCLIA [id number] [address] [place] Color (Spun CSF) Colorless Normal Colorless [facility] Comment on above: Order Comment: Speci men Type: CEREBROSPINAL FLUIDOrdering Facility: [facility] Address: [facility] [address] Performed By: #### 3 4563-7, [id number] ####[facility]ATORYCLIA [id number] [address] CSF TUBE NUMBER [employer] Normal [facility] Comment on above: Order Comment: Speci men Type: CEREBROSPINAL FLUIDOrdering Facility: [facility] Address: [address] [place] [address] Performed By: #### 3 4563-7, [id number] ####[facility]ATORYCLIA [id number] [address] RBC Manual cnt (CSF) [#/Vol] 94 cells/uL High 0-5 [facility] Comment on above: Order Comment: Speci men Type: CEREBROSPINAL FLUIDOrdering Facility: [facility] Address: [address] [place] [address] Performed By: #### 3 4563-7, [id number] ####[facility]ORYCLIA [id number] [address] WBC Manual cnt (CSF) [#/Vol] 1 cells/uL Normal 0-5 [facility] Comment on above: Order Comment: Speci men Type: CEREBROSPINAL FLUIDOrdering Facility: [facility] Address: [address] [place] [address] Performed By: #### 3 4563-7, [id number] ####[facility]ORATORYCLIA [id number] [address] Comprehensive metabolic 2000 panelon 07-08-2021 Albumin [Mass/Vol] 3.6 g/dL Low 3.9-4.9 [facility] Comment on above: Order Comment: Speci men Type: BLOOD SPECIMENOrdering Facility: [facility] Address: [address] [place] [address] Performed By: #### C K, 23077-5 ####[facility] LABORATORYCLIA [id number] [address] [place] [Catalytic activity/Vol] 125 U/L High 38-113 [facility] Comment on above: Order Comment: Speci men Type: BLOOD SPECIMENOrdering Facility: [facility] Address: [address] [address] Performed By: #### Eileen Valdivia, 86120-1 ####[facility]ATORYCLIA [id number] [address] [place] ALT With P-5'-P [Catalytic activity/Vol] 24 U/L Normal 10-54 [facility] Comment on above: Order Comment: Speci men Type: BLOOD SPECIMENOrdering Facility: [facility] Address: [address] [place] [address] Performed By: #### Eileen Valdivia, 57109-7 ####[facility]ORATORYCLIA [id number] [address] [facility] Anion gap [Moles/Vol] 16 mmol/L Normal 9-18 [facility] Comment on above: Order Comment: Speci men Type: BLOOD SPECIMENOrdering Facility: [facility] Address: [address] [place] [address] Performed By: #### Eileen Valdivia, 28615-8 ####[facility]ATORYCLIA [id number] [address] AST With P-5'-P [Catalytic activity/Vol] 21 U/L Normal 14-40 [facility] Comment on above: Order Comment: Speci men Type: BLOOD SPECIMENOrdering Facility: [facility] Address: [address] [place] [address] Performed By: #### Eileen Valdivia, 27685-2 ####[facility]ATORYCLIA [id number] [address] [place] Bilirubin [Mass/Vol] 0.3 mg/dL Normal 0.2-1.3 [facility] Comment on above: Order Comment: Speci men Type: BLOOD SPECIMENOrdering Facility: [facility] Address: [address] [place] [address] Performed By: #### Eileen Valdivia, 02739-0 ####[facility]ATORYCLIA [id number] [place] [address] [place] Calcium [Mass/Vol] 8.9 mg/dL Normal 8.5-10.2 [facility] Comment on above: Order Comment: Speci men Type: BLOOD SPECIMENOrdering Facility: [facility] Address: [address] [place] [address] Performed By: #### Eileen Valdivia, 91342-5 ####[facility]ATORYCLIA [id number] [place] [address] [place] Chloride [Moles/Vol] 96 mmol/L Low 97-105 [facility] Comment on above: Order Comment: Speci men Type: BLOOD SPECIMENOrdering Facility: [facility] Address: [address] [place] [address] Performed By: #### Eileen Valdivia, 83454-9 ####[facility]ATORYCLIA [id number] [address] [place] CO2 [Moles/Vol] 27 mmol/L Normal 22-30 [facility] Comment on above: Order Comment: Speci men Type: BLOOD SPECIMENOrdering Facility: [facility] Address: [address] [place] [address] Performed By: #### Eileen Valdivia, 92246-5 ####[facility]ATORYCLIA [id number] [place] [address] [place] Creatinine [Mass/Vol] 0.68 mg/dL Low 0.73-1.22 [facility] Comment on above: Order Comment: Speci men Type: BLOOD SPECIMENOrdering Facility: [facility] Address: [address] [place] [address] Performed By: #### Eileen Valdivia, 28757-6 ####[facility]ATORYCLIA [id number] [address] ESTIMATED GLOMERULAR FILTRATION RATE 101 mL/min/1.73m??? Normal >=60 [facility] Comment on above: Order Comment: Speci men Type: BLOOD SPECIMENOrdering Facility: [facility] Address: [address] [place] [address] Result Comment: Luzmaria mated Glomerular Filtration Rate [...] actual GFR. Performed By: #### Eileen Valdivia, 56466-7 ####[facility]ATORYCLIA [id number] [place] [address] [place] Glucose [Mass/Vol] 130 mg/dL High 74-99 [facility] Comment on above: Order Comment: Shira men Type: BLOOD SPECIMENOrdering Facility: [facility] Address: [address] [address] Result Comment: The [place] [employer] [...] 2016.39(Suppl 1). Performed By: #### Eileen Valdivia, 38332-5 ####[facility]ATORYCLIA [id number] [place] [address] [place] Potassium [Moles/Vol] 3.9 mmol/L Normal 3.7-5.1 [facility] Comment on above: Order Comment: Shira feldman Type: BLOOD SPECIMENOrdering Facility: [facility] Address: [address] Performed By: #### Eileen Valdivia, 86294-3 ####[facility]ATORYCLIA [id number] [place] [address] Protein [Mass/Vol] 7.0 g/dL Normal 6.3-8.0 [facility] Comment on above: Order Comment: Speci men Type: BLOOD SPECIMENOrdering Facility: [facility] Address: [address] [place] [address] Performed By: #### C Skip, 00389-2 ####[facility]ORYCLIA [id number] [address] [facility] Sodium [Moles/Vol] 139 mmol/L Normal 136-144 [facility] Comment on above: Order Comment: Speci men Type: BLOOD SPECIMENOrdering Facility: [facility] Address: [address] [place] [address] Performed By: #### Eileen Valdivia, 81699-6 ####[facility]ATORYCLIA [id number] [address] [facility] Urea nitrogen [Mass/Vol] 16 mg/dL Normal 9-24 [facility] Comment on above: Order Comment: Speci men Type: BLOOD SPECIMENOrdering Facility: [facility] Address: [address] [place] [address] Performed By: #### Eileen Valdivia, 45466-3 ####[facility]ATORYCLIA [id number] [address] [facility] ED NOTEon 07-08-2021 ED NOTE HNO ID: [id number] Author: Lenora James RN Service: Emergency Medicine Author Type: Registered Nurse Type: ED Notes Filed: 07/08/2021 5:03 PM Note Text: Pt to OR with surgical team Normal [facility] ED NOTE HNO ID: [id number] Author: Lenora James RN Service: Emergency Medicine Author Type: Registered Nurse Type: ED Notes Filed: 07/08/2021 4:50 PM Note Text: OR team to get pt Normal [facility] ED NOTE HNO ID: [id number] Author: Lenora James RN Service: Emergency Medicine Author Type: Registered Nurse Type: ED Notes Filed: 07/08/2021 4:50 PM Note Text: Normal [facility] ED NOTE HNO ID: [id number] Author: Lenora James RN Service: Emergency Medicine Author Type: Registered Nurse Type: ED Notes Filed: 07/08/2021 4:50 PM Note Text: Spoke with presurg; pt to go to OR now [facility] ED NOTE HNO ID: [id number] Author: Lenora James RN Service: Emergency Medicine Author Type: Registered Nurse Type: ED Notes Filed: 07/08/2021 4:12 PM Note Text: Neurosurgery at beside [facility] ED NOTE HNO ID: [id number] Author: Lenora James RN Service: Emergency Medicine Author Type: Registered Nurse Type: ED Notes Filed: 07/08/2021 2:35 PM Note Text: respiratory aware of pt breathing treatments [facility] ED NOTE HNO ID: [id number] Author: Lisa Woo RN Service: ? Author Type: Registered Nurse Type: ED Notes Filed: 07/08/2021 2:20 PM Note Text: Xray notified pt is ready. [facility] ED NOTE HNO ID: [id number] Author: Lenora James RN Service: Emergency Medicine Author Type: Registered Nurse Type: ED Notes Filed: 07/08/2021 12:14 PM Note Text: CT notified regarding imaging orders placed [facility] ED NOTE Normal [facility] ED PROV NOTEon 07-08-2021 ED PROV NOTE Normal [facility] Glucose CSF-mCncon 2 Glucose (CSF) [Mass/Vol] 88 mg/dL High 40-70 [facility] Comment on above: Order Comment: Speci men Type: CEREBROSPINAL FLUIDOrdering Facility: [facility] Address: [address] [place] [id number] Result Comment: Lumb ar CSF glucose values of healthy patients are approximately 60% of the plasma values and must always be compared with a concurrently measured plasma value for adequate clinical interpretation.References: 1. Glucose HK (GLUC3) [package insert V 12.0 Fijian]. [employer], [place], [place]. September 2015. 2. Michelle Moore, Michelle Manjarrez (2015). Chapter 7: Glucose and Lactate. Marianela Aloccer al.(eds.), Cerebrospinal Fluid in Clinical Neurology. [place]: [employer]. Performed By: #### 2 880-3, 2342-4 ####[facility]ATORYCLIA [id number] [address] HIGH SENSITIVITY TROPONIN To n 07-08-2021 HIGH SENSITIVITY TAMIKO 27 ng/L High <12 [facility] Comment on above: Order Comment: Speci men Type: BLOOD SPECIMENOrdering Facility: [facility] Address: [address] [place] [address] Result Comment: When assessing risk for acute [...] day MACE. Performed By: #### H STNT ####[facility]ORATORYIA [id number] [address] HIGH SENSITIVITY TAMIKO 36 ng/L High <12 [facility] Comment on above: Order Comment: Shira feldman Type: BLOOD SPECIMENOrdering Facility: [facility] Address: [address] [place] [address] Result Comment: When assessing risk for acute [...] day MACE. Performed By: #### H STNT ####[facility]ORATORYIA [id number] [address] STATES OF [facility] HISTORY PHYSICALon HISTORY PHYSICAL Normal [facility] NURSING PROGon 07-08-2021 NURSING PROG Normal [facility] OPERATIVE NOon 07-08-2021 OPERATIVE NO Normal [facility] Prot CSF-mCncon 07-08-2021 Protein (CSF) [Mass/Vol] 33 mg/dL Normal 15-45 [facility] Comment on above: Order Comment: Speci men Type: CEREBROSPINAL FLUIDOrdering Facility: [facility] Address: [address] [place] [address] Performed By: #### 2 880-3, 2342-4 ####[facility]ATORYCLIA [id number] [address] [place] SARS-CoV-2 RNA Resp Ql MEGAN+p robeon 07-08-2021 SARS-CoV-2 (COVID-19) RNA MEGAN+probe Ql (Resp) COVID 19 RESULT: SARS-CoV-2 (Agent of COVID-19) Not Detected by RT-PCR or equivalent method. This test has been authorized by FDA under an Emergency Use Authorization (EUA). Normal [facility] Comment on above: Performed By: #### 9 4500-6 ####[facility]ATORYCLIA [id number] [address] [place] STAPH AUREUS PCRon 2 S. aureus and MRSA panel MEGAN+probe (Nose) Normal Negative [facility] Comment on above: Order Comment: Speci men Type: SWAB OF INTERNAL NOSEOrdering Facility: [facility] Address: [address] [place] [address] Result Comment: Nega tive for Staphylococcus aureus by PCR.Negative for MRSA by PCR Performed By: #### S APCR ####[facility]ORATORYCLIA [id number] [place] [address] [place] Urinalysis complete panel (U )on 07-08-2021 Bacteria LM.HPF (Urine sed) [#/Area] Few Abnormal None Seen [facility] Comment on above: Order Comment: Speci men Type: URINE SPECIMENOrdering Facility: [facility] Address: [address] [place] [address] Performed By: #### 2 4356-8 ####[facility]ATORYCLIA [id number] [facility] [address] Bilirubin Ql (U) Negative Normal Negative [facility] Comment on above: Order Comment: Speci men Type: URINE SPECIMENOrdering Facility: [facility] Address: [address] [place] [address] Performed By: #### 2 4356-8 ####[facility]ATORYCLIA [id number] [address] Clarity (Unsp spec) Turbid Abnormal Clear [facility] Comment on above: Order Comment: Speci men Type: URINE SPECIMENOrdering Facility: [facility] Address: [address] [place] [address] Performed By: #### 2 4356-8 ####[facility]ATORYCLIA [id number] [address] Color (U) Light Yellow Normal yellow [facility] Comment on above: Order Comment: Speci men Type: URINE SPECIMENOrdering Facility: [facility] Address: [address] [place] [address] Performed By: #### 2 4356-8 ####[facility]ORYCLIA [id number] [address] Glucose Test strip (U) [Mass/Vol] Negative Normal Negative [facility] Comment on above: Order Comment: Speci men Type: URINE SPECIMENOrdering Facility: [facility] Address: [address] [place] [address] Performed By: #### 2 4356-8 ####[facility]ATORYCLIA [id number] [address] [facility] Hemoglobin Ql (U) Negative Normal Negative [facility] Comment on above: Order Comment: Speci men Type: URINE SPECIMENOrdering Facility: [facility] Address: [address] [place] [address] Performed By: #### 2 4356-8 ####[facility]ATORYCLIA [id number] [address] [place] Hyaline casts (Urine sed) [#/Area] 1-3 /LPF Abnormal 0 /LPF [facility] Comment on above: Order Comment: Speci men Type: URINE SPECIMENOrdering Facility: [facility] Address: [address] [place] [address] Performed By: #### 2 4356-8 ####[facility]ORYCLIA [id number] [address] [place] [facility] Ketones Ql (U) Negative Normal Negative [facility] Comment on above: Order Comment: Speci men Type: URINE SPECIMENOrdering Facility: [facility] Address: [address] [place] [address] Performed By: #### 2 4356-8 ####[facility]ATORYCLIA [id number] [address] Leukocyte esterase Test strip Ql (U) Negative Normal Negative [facility] Comment on above: Order Comment: Speci men Type: URINE SPECIMENOrdering Facility: [facility] Address: [address] [place] [address] Performed By: #### 2 4356-8 ####[facility]ATORYCLIA [id number] [address] [place] [facility] Nitrite Ql (U) Negative Normal Negative [facility] Comment on above: Order Comment: Speci men Type: URINE SPECIMENOrdering Facility: [facility] Address: [address] [place] [address] Performed By: #### 2 4356-8 ####[facility]ATORYCLIA [id number] [address] [place] pH (U) 5.0 [pH] Normal 5.0-8.0 [facility] Comment on above: Order Comment: Speci men Type: URINE SPECIMENOrdering Facility: [facility] Address: [address] [place] [address] Performed By: #### 2 4356-8 ####[facility]ATORYCLIA [id number] [address] [place] Protein (U) [Mass/Vol] Negative Normal Negative [facility] Comment on above: Order Comment: Speci men Type: URINE SPECIMENOrdering Facility: [facility] Address: [address] [place] [address] Performed By: #### 2 4356-8 ####[facility]ATORYCLIA [id number] [address] [facility] RBC LM.HPF (Urine sed) [#/Area] 11-25 /HPF Abnormal 0-3 /HPF [facility] Comment on above: Order Comment: Speci men Type: URINE SPECIMENOrdering Facility: [facility] Address: [address] [place] [address] Performed By: #### 2 4356-8 ####[facility]ITALCLIA [id number] [address] Specific gravity (U) [Rel density] 1.018 Normal 1.005-1.030 [facility] Comment on above: Order Comment: Speci men Type: URINE SPECIMENOrdering Facility: [facility] Address: [address] [place] [address] Performed By: #### 2 4356-8 ####[facility]ATORYCLIA [id number] [address] Urobilinogen Ql (U) Normal Normal Negative [facility] Comment on above: Order Comment: Speci men Type: URINE SPECIMENOrdering Facility: [facility] Address: [address] [place] [address] Performed By: #### 2 4356-8 ####[facility]ATORYCLIA [id number] [address] WBC LM.HPF (Urine sed) [#/Area] /[HPF] Abnormal 0-5 /HPF [facility] Comment on above: Order Comment: Speci men Type: URINE SPECIMENOrdering Facility: [facility] Address: [address] [place] [address] Performed By: #### 2 4356-8 ####[facility]ATORYCLIA [id number] [place] [address] [facility] Vancomycin random [Mass/Vol] on 07-08-2021 Vancomycin [Mass/Vol] 31.0 ug/mL High 10.0-20.0 [facility] Comment on above: Order Comment: Speci men Type: BLOOD SPECIMENOrdering Facility: [facility] Address: [facility] [address] [phone] Result Comment: Refe rence ranges and high/low indicator flags are provided as general guidelines only. The treating physician must determine appropriate target levels/dosing based on the specific clinical situation. Performed By: #### 4 091-5 ####[facility]ATORYCLIA [id number] [address] XR ABD 2V SUPINE W UPR/DECUB [...] Center HISTORY PHYSICALon HISTORY PHYSICAL HNO ID: [id number] Author: Amy Beltran MD Service: ? Author Type: Physician Type: HANDP Filed: 06/30/2021 6:42 PM Note Text: Connected Care Unit History and Physical Facility: [facility] Level of Care: Skilled Admission Date: June [...] regarding the above plan. Total time spent caev-[id number]-yltf and/or counseling and coordinating care on the skilled care unit for patient was approximately 45 minutes SUBJECTIVE (HISTORY) Chief Complaint: Confusion, infection, blood clot. Andrew Sifuentes is being seen today for [facility] facility (SNF) admission AND management of weakness, tube feed, infected retroperitoneal infection and seizure. HPI: This is a 71 year old male who presents from [facility] with primary admitting diagnosis of Seizure, [...] CT brain concerning for hydrocephalus. Tip of NURSING COORDINATOR shunt was found to be in the [...] Code Status: (more content not included)... Normal [facility] Basic metabolic 2000 panelon 06-28-2021 Anion gap [Moles/Vol] 7 mmol/L Low 9-18 [facility] Comment on above: Order Comment: Speci men Type: BLOOD SPECIMENOrdering Facility: [facility] Address: [address] Performed By: #### 2 4320-2, ####[facility] LABORATORYCLIA [id number] [place] [address] [place] Calcium [Mass/Vol] 8.8 mg/dL Normal 8.5-10.2 [facility] Comment on above: Order Comment: Speci men Type: BLOOD SPECIMENOrdering Facility: [facility] Address: [address] [place] [address] Performed By: #### 2 4320-06, ####[facility]ORATORYCLIA [id number] [place] [address] [place] Chloride [Moles/Vol] 103 mmol/L Normal 97-105 [facility] Comment on above: Order Comment: Speci men Type: BLOOD SPECIMENOrdering Facility: [facility] Address: [address] [place] [address] Performed By: #### 2 4320-06, ####[facility]ATORYCLIA [id number] [place] [address] [place] CO2 [Moles/Vol] 28 mmol/L Normal 22-30 [facility] Comment on above: Order Comment: Speci men Type: BLOOD SPECIMENOrdering Facility: [facility] Address: [address] [place] [address] Performed By: #### 2 4320-06, ####[facility]ATORYCLIA [id number] [place] [address] [place] Creatinine [Mass/Vol] 0.57 mg/dL Low 0.73-1.22 [facility] Comment on above: Order Comment: Speci men Type: BLOOD SPECIMENOrdering Facility: [facility] Address: [address] [place] [address] Performed By: #### 2 2, ####[facility]ATORYCLIA [id number] [place] [address] [place] GFR/1.73 sq M.predicted MDRD (S/P/Bld) [Vol rate/Area] mL/min/{1.73_m2} Normal [facility] Comment on above: Order Comment: Shira feldman Type: BLOOD SPECIMENOrdering Facility: [facility] Address: [address] [phone] Result Comment: >60e GFR (Estimated GFR) Units [...] actual GFR. Performed By: #### 2 4321-2, 99382-2 ####[facility]ATORYCLIA [id number] [address] [facility] Glucose [Mass/Vol] 120 mg/dL High 74-99 [facility] Comment on above: Order Comment: Shira feldman Type: BLOOD SPECIMENOrdering Facility: [facility] Address: [address] [place], [place] [phone] Result Comment: The [place] [employer] [...] 2016.39(Suppl 1). Performed By: #### 2 4321-2, 87200-1 ####[facility]ATORYCLIA [id number] [address] [place] Potassium [Moles/Vol] 3.8 mmol/L Normal 3.7-5.1 [facility] Comment on above: Order Comment: Speci men Type: BLOOD SPECIMENOrdering Facility: [facility] Address: [address] [place] [address] Performed By: #### 2 4321-2, ####[facility]ATORYCLIA [id number] [address] [place] Sodium [Moles/Vol] 138 mmol/L Normal 136-144 [facility] Comment on above: Order Comment: Speci men Type: BLOOD SPECIMENOrdering Facility: [facility] Address: [address] [place] [address] Performed By: #### 2 4321-2, ####[facility]ATORYCLIA [id number] [address] [place] [facility] Urea nitrogen [Mass/Vol] 24 mg/dL Normal 9-24 [facility] Comment on above: Order Comment: Speci men Type: BLOOD SPECIMENOrdering Facility: [facility] Address: [address] [place] [address] Performed By: #### 2 4321-2, ####[facility]ATORYCLIA [id number] [address] [place] CASE MANAGEMon 06-28-2021 CASE MANAGEM Normal [facility] CBC panel Auto (Bld)on 06-28 Erythrocyte distribution width (RBC) [Ratio] 15.6 % High 11.5-15.0 [facility] Comment on above: Order Comment: Speci men Type: BLOOD SPECIMENOrdering Facility: [facility] Address: [address] [place] [address] Performed By: #### 5 8410-2 ####[facility]ATORYCLIA [id number] [address] [place] Hematocrit (Bld) [Volume fraction] 30.5 % Low 39.0-51.0 [facility] Comment on above: Order Comment: Speci men Type: BLOOD SPECIMENOrdering Facility: [facility] Address: [address] [place] [address] Performed By: #### 5 8410-2 ####[facility]ORYCLIA [id number] [address] [place] [facility] Hemoglobin (Bld) [Mass/Vol] 9.4 g/dL Low 13.0-17.0 [facility] Comment on above: Order Comment: Speci men Type: BLOOD SPECIMENOrdering Facility: [facility] Address: [address] [place] [address] Performed By: #### 5 8410-2 ####[facility]ATORYCLIA [id number] [address] [place] [facility] MCH (RBC) [Entitic mass] 27.8 pg Normal 26.0-34.0 [facility] Comment on above: Order Comment: Speci men Type: BLOOD SPECIMENOrdering Facility: [facility] Address: [address] [place] [address] Performed By: #### 5 8410-2 ####[facility]ORYCLIA [id number] [address] MCHC (RBC) [Mass/Vol] 30.8 g/dL Normal 30.5-36.0 [facility] Comment on above: Order Comment: Speci men Type: BLOOD SPECIMENOrdering Facility: [facility] Address: [address] [place] [address] Performed By: #### 5 8410-2 ####[facility]ORYCLIA [id number] [address] [place] MCV (RBC) [Entitic vol] 90.2 fL Normal 80.0-100.0 [facility] Comment on above: Order Comment: Speci men Type: BLOOD SPECIMENOrdering Facility: [facility] Address: [address] [place] [address] Performed By: #### 5 8410-2 ####[facility]ATORYCLIA [id number] [address] [place] Nucleated RBC (Bld) [#/Vol] 10*3/uL Normal <0.01 [facility] Comment on above: Order Comment: Speci men Type: BLOOD SPECIMENOrdering Facility: [facility] Address: [address] [place] [address] Performed By: #### 5 8410-2 ####[facility]ATORYCLIA [id number] [address] [place] Platelet mean volume (Bld) [Entitic vol] 9.9 fL Normal 9.0-12.7 [facility] Comment on above: Order Comment: Speci men Type: BLOOD SPECIMENOrdering Facility: [facility] Address: [address] [place] [address] Performed By: #### 5 8410-2 ####[facility]ATORYCLIA [id number] [address] [place] Platelets (Bld) [#/Vol] 333 10*3/uL Normal 150-400 [facility] Comment on above: Order Comment: Speci men Type: BLOOD SPECIMENOrdering Facility: [facility] Address: [address] [place] [address] Performed By: #### 5 8410-2 ####[facility]ATORYCLIA [id number] [address] [place] RBC (Bld) [#/Vol] 3.38 10*6/uL Low 4.20-6.00 [facility] Comment on above: Order Comment: Speci men Type: BLOOD SPECIMENOrdering Facility: [facility] Address: [address] [place] [address] Performed By: #### 5 8410-2 ####[facility]ATORYCLIA [id number] [address] [place] WBC (Bld) [#/Vol] 9.71 10*3/uL Normal 3.70-11.00 [facility] Comment on above: Order Comment: Speci men Type: BLOOD SPECIMENOrdering Facility: [facility] Address: [address] [place] [address] Performed By: #### 5 8410-2 ####[facility]ATORYCLIA [id number] [address] CNDSon 06-28-2021 CNDS Normal [facility] CONSULT PROGon 06-28-2021 CONSULT PROG Normal [facility] Magnesium SerPl-mCncon 06-28 Magnesium [Mass/Vol] 2.2 mg/dL Normal 1.7-2.3 [facility] Comment on above: Order Comment: Speci men Type: BLOOD SPECIMENOrdering Facility: [facility] Address: [address] [place] [address] Performed By: #### 2 4321-2, ####[facility]ATORYCLIA [id number] [address] Vancomycin random [Mass/Vol] on 06-28-2021 Vancomycin [Mass/Vol] 23.0 ug/mL High 10.0-20.0 Akr [facility] Comment on above: Order Comment: Speci men Type: BLOOD SPECIMENOrdering Facility: [facility] Address: [address] [place] [address] Result Comment: Refe rence ranges and high/low indicator flags are provided as general guidelines only. The treating physician must determine appropriate target levels/dosing based on the specific clinical situation. Performed By: #### 4 091-5 ####[facility]ORYCLIA [id number] [address] [place] ALLIED HEALTHon 06-27-2021 ALLIED HEALTH Normal [facility] Basic metabolic 2000 panelon 06-27-2021 Anion gap [Moles/Vol] 10 mmol/L Normal 9-18 Prr [facility] Comment on above: Order Comment: Speci men Type: BLOOD SPECIMENOrdering Facility: [facility] Address: [address] [place] [address] Performed By: #### 2 4320-2, ####[facility]ATORYCLIA [id number] [place] [address] [place] Calcium [Mass/Vol] 8.8 mg/dL Normal 8.5-10.2 [facility] Comment on above: Order Comment: Speci men Type: BLOOD SPECIMENOrdering Facility: [facility] Address: [address] [place] [address] Performed By: #### 2 2, ####[facility]ATORYCLIA [id number] [place] [address] [place] Chloride [Moles/Vol] 104 mmol/L Normal 97-105 [facility] Comment on above: Order Comment: Speci men Type: BLOOD SPECIMENOrdering Facility: [facility] Address: [address] [place] [address] Performed By: #### 2 4320-06, ####[facility]ORYCLIA [id number] [address] [place] CO2 [Moles/Vol] 26 mmol/L Normal 22-30 [facility] Comment on above: Order Comment: Speci men Type: BLOOD SPECIMENOrdering Facility: [facility] Address: [address] [place] [address] Performed By: #### 2 4320-06, ####[facility]ATORYCLIA [id number] [place] [address] [place] Creatinine [Mass/Vol] 0.57 mg/dL Low 0.73-1.22 [facility] Comment on above: Order Comment: Speci men Type: BLOOD SPECIMENOrdering Facility: [facility] Address: [address] [place] [address] Performed By: #### 2 2, ####[facility]ATORYCLIA [id number] [place] [address] [place] GFR/1.73 sq M.predicted MDRD (S/P/Bld) [Vol rate/Area] mL/min/{1.73_m2} Normal [facility] Comment on above: Order Comment: Shira feldman Type: BLOOD SPECIMENOrdering Facility: [facility] Address: [address] [phone] Result Comment: >60e GFR (Estimated GFR) Units [...] actual GFR. Performed By: #### 2 4321-2, 62656-8 ####[facility]ATORYCLIA [id number] [place] [address] [place] Glucose [Mass/Vol] 133 mg/dL High 74-99 [facility] Comment on above: Order Comment: Shira feldman Type: BLOOD SPECIMENOrdering Facility: [facility] Address: [address] [place] [address] Result Comment: The [place] [employer] [...] 2016.39(Suppl 1). Performed By: #### 2 4321-2, 99677-7 ####[facility]ATORYCLIA [id number] [place] [address] [place] Potassium [Moles/Vol] 4.2 mmol/L Normal 3.7-5.1 [facility] Comment on above: Order Comment: Speci men Type: BLOOD SPECIMENOrdering Facility: [facility] Address: [address] [place] [address] Performed By: #### 2 4321-2, ####[facility]ATORYCLIA [id number] [address] [place] [facility] Sodium [Moles/Vol] 140 mmol/L Normal 136-144 [facility] Comment on above: Order Comment: Speci men Type: BLOOD SPECIMENOrdering Facility: [facility] Address: [address] [place] [address] Performed By: #### 2 4321-2, ####[facility]ATORYCLIA [id number] [address] STATES OF [facility] Urea nitrogen [Mass/Vol] 24 mg/dL Normal 9-24 [facility] Comment on above: Order Comment: Speci men Type: BLOOD SPECIMENOrdering Facility: [facility] Address: [address] [place] [address] Performed By: #### 2 4321-2, ####[facility]ATORYCLIA [id number] [address] CASE MANAGEMon 06-27-2021 CASE MANAGEM Normal [facility] CBC panel Auto (Bld)on 06-27 Erythrocyte distribution width (RBC) [Ratio] 15.8 % High 11.5-15.0 [facility] Comment on above: Order Comment: Speci men Type: BLOOD SPECIMENOrdering Facility: [facility] Address: [address] [place] [address] Performed By: #### 5 8410-2 ####[facility]ATORYCLIA [id number] [address] Hematocrit (Bld) [Volume fraction] 31.4 % Low 39.0-51.0 [facility] Comment on above: Order Comment: Speci men Type: BLOOD SPECIMENOrdering Facility: [facility] Address: [address] [place] [address] Performed By: #### 5 8410-2 ####[facility]ATORYCLIA [id number] [address] Hemoglobin (Bld) [Mass/Vol] 9.3 g/dL Low 13.0-17.0 [facility] Comment on above: Order Comment: Speci men Type: BLOOD SPECIMENOrdering Facility: [facility] Address: [address] [place] [address] Performed By: #### 5 8410-2 ####[facility]ATORYCLIA [id number] [address] MCH (RBC) [Entitic mass] 27.0 pg Normal 26.0-34.0 [facility] Comment on above: Order Comment: Speci men Type: BLOOD SPECIMENOrdering Facility: [facility] Address: [address] [place] [address] Performed By: #### 5 8410-2 ####[facility]ATORYCLIA [id number] [address] MCHC (RBC) [Mass/Vol] 29.6 g/dL Low 30.5-36.0 [facility] Comment on above: Order Comment: Speci men Type: BLOOD SPECIMENOrdering Facility: [facility] Address: [address] [place] [address] Performed By: #### 5 8410-2 ####[facility]ATORYCLIA [id number] [address] [facility] MCV (RBC) [Entitic vol] 91.3 fL Normal 80.0-100.0 [facility] Comment on above: Order Comment: Speci men Type: BLOOD SPECIMENOrdering Facility: [facility] Address: [address] [place] [address] Performed By: #### 5 8410-2 ####[facility]ATORYCLIA [id number] [address] Nucleated RBC (Bld) [#/Vol] 10*3/uL Normal <0.01 [facility] Comment on above: Order Comment: Speci men Type: BLOOD SPECIMENOrdering Facility: [facility] Address: [address] [place] [address] Performed By: #### 5 8410-2 ####[facility]ATORYCLIA [id number] [place] [address] [place] Platelet mean volume (Bld) [Entitic vol] 10.3 fL Normal 9.0-12.7 [facility] Comment on above: Order Comment: Speci men Type: BLOOD SPECIMENOrdering Facility: [facility] Address: [address] [place] [address] Performed By: #### 5 8410-2 ####[facility]ATORYCLIA [id number] [address] [place] Platelets (Bld) [#/Vol] 359 10*3/uL Normal 150-400 [facility] Comment on above: Order Comment: Speci men Type: BLOOD SPECIMENOrdering Facility: [facility] Address: [address] [place] [address] Performed By: #### 5 8410-2 ####[facility]ATORYCLIA [id number] [place] [address] [place] RBC (Bld) [#/Vol] 3.44 10*6/uL Low 4.20-6.00 [facility] Comment on above: Order Comment: Speci men Type: BLOOD SPECIMENOrdering Facility: [facility] Address: [address] [place] [address] Performed By: #### 5 8410-2 ####[facility]ATORYCLIA [id number] [place] [address] [place] WBC (Bld) [#/Vol] 10.73 10*3/uL Normal 3.70-11.00 [facility] Comment on above: Order Comment: Speci men Type: BLOOD SPECIMENOrdering Facility: [facility] Address: [address] [place] [address] Performed By: #### 5 8410-2 ####[facility]ATORYCLIA [id number] [place] [address] [place] Magnesium [facility] Magnesium [Mass/Vol] 2.2 mg/dL Normal 1.7-2.3 [facility] Comment on above: Order Comment: Speci men Type: BLOOD SPECIMENOrdering Facility: [facility] Address: [address] [place] [address] Performed By: #### 2 4321-2, 29494-9 ####[facility]ATORYCLIA [id number] [address] [place] NT-proBNP [facility] Natriuretic peptide.B prohormone N-Terminal [Mass/Vol] 184 pg/mL High <125 [facility] Comment on above: Order Comment: Speci men Type: BLOOD SPECIMENOrdering Facility: [facility] Address: [address] [place] [address] Performed By: #### 3 3762-6 ####[facility]ATORYCLIA [id number] [place] [address] [place] NUTRITIONon 06-27-2021 NUTRITION [...] Comment: Speci men Type: BLOOD SPECIMENOrdering Facility: [facility] Address: [address] [place] [address] Performed By: #### 1 9123-9, 29582-6 ####[facility]ATORYCLIA [id number] [address] [place] Calcium [Mass/Vol] 8.7 mg/dL Normal 8.5-10.2 [facility] Comment on above: Order Comment: Speci men Type: BLOOD SPECIMENOrdering Facility: [facility] Address: [address] [place] [address] Performed By: #### 1 9123-9, 07192-8 ####[facility]ATORYCLIA [id number] [place] [address] [place] Chloride [Moles/Vol] 105 mmol/L Normal 97-105 [facility] Comment on above: Order Comment: Speci men Type: BLOOD SPECIMENOrdering Facility: [facility] Address: [address] [place] [address] Performed By: #### 1 9123-9, 89620-4 ####[facility]ATORYCLIA [id number] [place] [address] [place] CO2 [Moles/Vol] 26 mmol/L Normal 22-30 [facility] Comment on above: Order Comment: Speci men Type: BLOOD SPECIMENOrdering Facility: [facility] Address: [address] [place] [address] Performed By: #### 1 9123-9, 56043-8 ####[facility]ATORYCLIA [id number] [place] [address] [place] Creatinine [Mass/Vol] 0.56 mg/dL Low 0.73-1.22 [facility] Comment on above: Order Comment: Speci men Type: BLOOD SPECIMENOrdering Facility: [facility] Address: [address] [place] [address] Performed By: #### 1 9123-9, 35479-7 ####[facility]ATORYCLIA [id number] [place] [address] [place] GFR/1.73 sq M.predicted MDRD (S/P/Bld) [Vol rate/Area] mL/min/{1.73_m2} Normal [facility] Comment on above: Order Comment: Speci men Type: BLOOD SPECIMENOrdering Facility: [facility] Address: [address] [phone] Result Comment: >60e GFR (Estimated GFR) Units [...] actual GFR. Performed By: #### 1 9123-9, 97190-0 ####[facility]ITALCLIA [id number] [place] [address] [place] Glucose [Mass/Vol] 134 mg/dL High 74-99 [facility] Comment on above: Order Comment: Shira feldman Type: BLOOD SPECIMENOrdering Facility: [facility] Address: [address] [place] [address] Result Comment: The [place] [employer] [...] 2016.39(Suppl 1). Performed By: #### 1 9123-9, 65403-4 ####[facility]ATORYCLIA [id number] [place] [address] [place] Potassium [Moles/Vol] 3.8 mmol/L Normal 3.7-5.1 [facility] Comment on above: Order Comment: Shria feldman Type: BLOOD SPECIMENOrdering Facility: [facility] Address: [address] [place] [address] Performed By: #### 1 9123-9, 81772-7 ####[facility]ATORYCLIA [id number] [address] Sodium [Moles/Vol] 140 mmol/L Normal 136-144 [facility] Comment on above: Order Comment: Speci men Type: BLOOD SPECIMENOrdering Facility: [facility] Address: [address] [place] [address] Performed By: #### 1 9123-9, 20797-9 ####[facility]ATORYCLIA [id number] [address] [place] Urea nitrogen [Mass/Vol] 24 mg/dL Normal 9-24 [facility] Comment on above: Order Comment: Speci men Type: BLOOD SPECIMENOrdering Facility: [facility] Address: [address] [place] [address] Performed By: #### 1 91239, 65811-6 ####[facility]ORYCLIA [id number] [address] [facility] CBC panel Auto (Bld)on 06-26 Erythrocyte distribution width (RBC) [Ratio] 15.9 % High 11.5-15.0 [facility] Comment on above: Order Comment: Speci men Type: BLOOD SPECIMENOrdering Facility: [facility] Address: [address] [place] [address] Performed By: #### 5 8410-2 ####[facility]ATORYCLIA [id number] [address] Hematocrit (Bld) [Volume fraction] 29.8 % Low 39.0-51.0 [facility] Comment on above: Order Comment: Speci men Type: BLOOD SPECIMENOrdering Facility: [facility] Address: [address] [place] [address] Performed By: #### 5 8410-2 ####[facility]ORATORYCLIA [id number] [place] [address] [place] Hemoglobin (Bld) [Mass/Vol] 9.1 g/dL Low 13.0-17.0 [facility] Comment on above: Order Comment: Speci men Type: BLOOD SPECIMENOrdering Facility: [facility] Address: [address] [place] [address] Performed By: #### 5 8410-2 ####[facility]ATORYCLIA [id number] [address] MCH (RBC) [Entitic mass] 27.8 pg Normal 26.0-34.0 [facility] Comment on above: Order Comment: Speci men Type: BLOOD SPECIMENOrdering Facility: [facility] Address: [address] [place] [address] Performed By: #### 5 8410-2 ####[facility]ATORYCLIA [id number] [address] OF [facility] MCHC (RBC) [Mass/Vol] 30.5 g/dL Normal 30.5-36.0 [facility] Comment on above: Order Comment: Speci men Type: BLOOD SPECIMENOrdering Facility: [facility] Address: [address] [place] [address] Performed By: #### 5 8410-2 ####[facility]ATORYCLIA [id number] [address] MCV (RBC) [Entitic vol] 91.1 fL Normal 80.0-100.0 [facility] Comment on above: Order Comment: Speci men Type: BLOOD SPECIMENOrdering Facility: [facility] Address: [address] [place] [address] Performed By: #### 5 8410-2 ####[facility]ATORYCLIA [id number] [address] Nucleated RBC (Bld) [#/Vol] 10*3/uL Normal <0.01 [facility] Comment on above: Order Comment: Speci men Type: BLOOD SPECIMENOrdering Facility: [facility] Address: [address] [place] [address] Performed By: #### 5 8410-2 ####[facility]ATORYCLIA [id number] [address] Platelet mean volume (Bld) [Entitic vol] 10.3 fL Normal 9.0-12.7 [facility] Comment on above: Order Comment: Speci men Type: BLOOD SPECIMENOrdering Facility: [facility] Address: [address] [place] [address] Performed By: #### 5 8410-2 ####[facility]ATORYCLIA [id number] [address] [place] Platelets (Bld) [#/Vol] 336 10*3/uL Normal 150-400 [facility] Comment on above: Order Comment: Speci men Type: BLOOD SPECIMENOrdering Facility: [facility] Address: [address] [place] [address] Performed By: #### 5 8410-2 ####[facility]ATORYCLIA [id number] [address] [place] RBC (Bld) [#/Vol] 3.27 10*6/uL Low 4.20-6.00 [facility] Comment on above: Order Comment: Speci men Type: BLOOD SPECIMENOrdering Facility: [facility] Address: [address] [place] [address] Performed By: #### 5 8410-2 ####[facility]ATORYCLIA [id number] [address] [place] WBC (Bld) [#/Vol] 9.14 10*3/uL Normal 3.70-11.00 [facility] Comment on above: Order Comment: Speci men Type: BLOOD SPECIMENOrdering Facility: [facility] Address: [address] [place] [address] Performed By: #### 5 8410-2 ####[facility]ATORYCLIA [id number] [address] OF [facility] CONSULT PROGon 06-26-2021 CONSULT PROG Normal [facility] Magnesium SerPl-mCncon 06-26 Magnesium [Mass/Vol] 2.2 mg/dL Normal 1.7-2.3 [facility] Comment on above: Order Comment: Speci men Type: BLOOD SPECIMENOrdering Facility: [facility] Address: [address] [place] [address] Performed By: #### 1 9123-9, 41614-9 ####[facility]ATORYCLIA [id number] [address] OF [facility] NURSING PROGon 06-26-2021 NURSING PROG Normal [facility] NURSING PROG Normal [facility] Basic metabolic 2000 panelon 06-25-2021 Anion gap [Moles/Vol] 8 mmol/L Low 9-18 [facility] Comment on above: Order Comment: Speci men Type: BLOOD SPECIMENOrdering Facility: [facility] Address: [address] [place] [address] Performed By: #### 2 432-2, ####[facility]ORATORYCLIA [id number] [place] [address] [place] Calcium [Mass/Vol] 8.8 mg/dL Normal 8.5-10.2 [facility] Comment on above: Order Comment: Speci men Type: BLOOD SPECIMENOrdering Facility: [facility] Address: [address] [place] [address] Performed By: #### 2 432-2, ####[facility]ATORYCLIA [id number] [place] [address] [place] Chloride [Moles/Vol] 105 mmol/L Normal 97-105 [facility] Comment on above: Order Comment: Speci men Type: BLOOD SPECIMENOrdering Facility: [facility] Address: [address] [place] [address] Performed By: #### 2 432-2, ####[facility]ATORYCLIA [id number] [place] [address] [place] CO2 [Moles/Vol] 27 mmol/L Normal 22-30 [facility] Comment on above: Order Comment: Speci men Type: BLOOD SPECIMENOrdering Facility: [facility] Address: [address] [place] [address] Performed By: #### 2 432-, ####[facility]ATORYCLIA [id number] [place] [id number] [place] Creatinine [Mass/Vol] 0.59 mg/dL Low 0.73-1.22 [facility] Comment on above: Order Comment: Speci men Type: BLOOD SPECIMENOrdering Facility: [facility] Address: [address] [place] [address] Performed By: #### 2 43205-08, ####[facility]ATORYCLIA [id number] [address] [place] GFR/1.73 sq M.predicted MDRD (S/P/Bld) [Vol rate/Area] mL/min/{1.73_m2} Normal [facility] Comment on above: Order Comment: Speci men Type: BLOOD SPECIMENOrdering Facility: [facility] Address: [address] [place] [address] Result Comment: >60e GFR (Estimated GFR) Units [...] actual GFR. Performed By: #### 2 43205-08, ####[facility]ATORYCLIA [id number] [place] [address] [place] Glucose [Mass/Vol] 132 mg/dL High 74-99 [facility] Comment on above: Order Comment: Speci men Type: BLOOD SPECIMENOrdering Facility: [facility] Address: [address] [place], [place] [id number] Result Comment: [employer] [place] [employer] [...] 2016.39(Suppl 1). Performed By: #### 2 4320-06, ####[facility] MediaWYOM[facility] LABORATORYCLIA [id number] [place] [address] [place] Potassium [Moles/Vol] 3.9 mmol/L Normal 3.7-5.1 [facility] Comment on above: Order Comment: Johni men Type: BLOOD SPECIMENOrdering Facility: [facility] Address: [address] [place], [place] [address] Performed By: #### 2 4320-06, ####[facility] MediaWYOM[facility] LABORATORYCLIA [id number] [place] [address] [place] Sodium [Moles/Vol] 140 mmol/L Normal 136-144 [facility] Comment on above: Order Comment: Speci men Type: BLOOD SPECIMENOrdering Facility: [facility] Address: [address] Performed By: #### 2 4320-06, ####[facility]ATORYCLIA [id number] [place] [address] [place] Urea nitrogen [Mass/Vol] 24 mg/dL Normal 9-24 [facility] Comment on above: Order Comment: Speci men Type: BLOOD SPECIMENOrdering Facility: [facility] Address: [address] [place] [address] Performed By: #### 2 4321-2, 05551-7 ####[facility]ATORYCLIA [id number] [address] [place] CASE MANAGEMon 06-25-2021 CASE MANAGEM Normal [facility] CBC panel Auto (Bld)on 06-25 Erythrocyte distribution width (RBC) [Ratio] 15.9 % High 11.5-15.0 [facility] Comment on above: Order Comment: Speci men Type: BLOOD SPECIMENOrdering Facility: [facility] Address: [address] [place] [address] Performed By: #### 5 8410-2 ####[facility]ATORYCLIA [id number] [address] [place] Hematocrit (Bld) [Volume fraction] 31.0 % Low 39.0-51.0 [facility] Comment on above: Order Comment: Speci men Type: BLOOD SPECIMENOrdering Facility: [facility] Address: [address] [place] [address] Performed By: #### 5 8410-2 ####[facility] LABORATORYCLIA [id number] [address] [place] [facility] Hemoglobin (Bld) [Mass/Vol] 9.4 g/dL Low 13.0-17.0 [facility] Comment on above: Order Comment: Speci men Type: BLOOD SPECIMENOrdering Facility: [facility] Address: [address] [place] [address] Performed By: #### 5 8410-2 ####[facility] LABORATORYCLIA [id number] [address] [place] MCH (RBC) [Entitic mass] 28.1 pg Normal 26.0-34.0 [facility] Comment on above: Order Comment: Speci men Type: BLOOD SPECIMENOrdering Facility: [facility] Address: [address] [place] [address] Performed By: #### 5 8410-2 ####[facility] [id number] [address] [place] [facility] MCHC (RBC) [Mass/Vol] 30.3 g/dL Low 30.5-36.0 [facility] Comment on above: Order Comment: Speci men Type: BLOOD SPECIMENOrdering Facility: [facility] Address: [address] [place] [address] Performed By: #### 5 8410-2 ####[facility] LABORATORYCLIA [id number] [address] MCV (RBC) [Entitic vol] 92.5 fL Normal 80.0-100.0 [facility] Comment on above: Order Comment: Speci men Type: BLOOD SPECIMENOrdering Facility: [facility] Address: [address] [place] [address] Performed By: #### 5 8410-2 ####[facility] LABORATORYCLIA [id number] [address] Nucleated RBC (Bld) [#/Vol] 10*3/uL Normal <0.01 [facility] Comment on above: Order Comment: Speci men Type: BLOOD SPECIMENOrdering Facility: [facility] Address: [address] [place] [address] Performed By: #### 5 8410-2 ####[facility] LABORATORYCLIA [id number] [address] [place] Platelet mean volume (Bld) [Entitic vol] 10.5 fL Normal 9.0-12.7 [facility] Comment on above: Order Comment: Speci men Type: BLOOD SPECIMENOrdering Facility: [facility] Address: [address] [place] [address] Performed By: #### 5 8410-2 ####[facility] LABORATORYCLIA [id number] [address] [place] Platelets (Bld) [#/Vol] 311 10*3/uL Normal 150-400 [facility] Comment on above: Order Comment: Speci men Type: BLOOD SPECIMENOrdering Facility: [facility] Address: [address] [place] [address] Performed By: #### 5 8410-2 ####[facility] LABORATORYCLIA [id number] [address] [facility] RBC (Bld) [#/Vol] 3.35 10*6/uL Low 4.20-6.00 [facility] Comment on above: Order Comment: Speci men Type: BLOOD SPECIMENOrdering Facility: [facility] Address: [address] [place] [address] Performed By: #### 5 8410-2 ####[facility] LABORATORYCLIA [id number] [address] WBC (Bld) [#/Vol] 9.57 10*3/uL Normal 3.70-11.00 [facility] Comment on above: Order Comment: Speci men Type: BLOOD SPECIMENOrdering Facility: [facility] Address: [address] [place] [address] Performed By: #### 5 8410-2 ####[facility] LABORATORYCLIA [id number] [address] Magnesium SerPl-mCncon 06-25 Magnesium [Mass/Vol] 2.4 mg/dL High 1.7-2.3 [facility] Comment on above: Order Comment: Speci men Type: BLOOD SPECIMENOrdering Facility: [facility] Address: [address] [place] [address] Performed By: #### 2 4321-2, 58726-0 ####[facility] LABORATORYCLIA [id number] [address] Basic metabolic 2000 panelon 06-24-2021 Anion gap [Moles/Vol] 9 mmol/L Normal -18 [facility] Comment on above: Order Comment: Speci men Type: BLOOD SPECIMENOrdering Facility: [facility] Address: [address] [place] [address] Performed By: #### 1 9123-9, 09677-9 ####[facility] LABORATORYCLIA [id number] [place] [address] [place] Calcium [Mass/Vol] 8.6 mg/dL Normal 8.5-10.2 [facility] Comment on above: Order Comment: Speci men Type: BLOOD SPECIMENOrdering Facility: [facility] Address: [address] [place] [address] Performed By: #### 1 9123-9, 17071-1 ####[facility] LABORATORYCLIA [id number] [place] [address] [place] Chloride [Moles/Vol] 103 mmol/L Normal 97-105 [facility] Comment on above: Order Comment: Speci men Type: BLOOD SPECIMENOrdering Facility: [facility] Address: [address] [place] [address] Performed By: #### 1 239, 55052-4 ####[facility] LABORATORYCLIA [id number] [place] [address] [place] CO2 [Moles/Vol] 26 mmol/L Normal 22-30 [facility] Comment on above: Order Comment: Speci men Type: BLOOD SPECIMENOrdering Facility: [facility] Address: [address] [place] [address] Performed By: #### 1 91239, ####[facility] LABORATORYCLIA [id number] [place] [address] [place] Creatinine [Mass/Vol] 0.60 mg/dL Low 0.73-1.22 [facility] Comment on above: Order Comment: Speci men Type: BLOOD SPECIMENOrdering Facility: [facility] Address: [address] [place] [address] Performed By: #### 1 9123-9, 55391-0 ####[facility] LABORATORYCLIA [id number] [place] [address] [place] GFR/1.73 sq M.predicted MDRD (S/P/Bld) [Vol rate/Area] mL/min/{1.73_m2} Normal [facility] Comment on above: Order Comment: Shira feldman Type: BLOOD SPECIMENOrdering Facility: [facility] Address: [address] [place] [address] Result Comment: >60e GFR (Estimated GFR) Units [...] actual GFR. Performed By: #### 1 9123-9, 09919-8 ####[facility] LABORATORYCLIA [id number] [place] [address] [place] Glucose [Mass/Vol] 126 mg/dL High 74-99 [facility] Comment on above: Order Comment: Shira feldman Type: BLOOD SPECIMENOrdering Facility: [facility] Address: [place] [id number] Result Comment: The [place] [employer] [...] 2016.39(Suppl 1). Performed By: #### 1 9123-9, 51157-4 ####[facility] LABORATORYCLIA [id number] [place] [address] [place] Potassium [Moles/Vol] 3.9 mmol/L Normal 3.7-5.1 [facility] Comment on above: Order Comment: Speci men Type: BLOOD SPECIMENOrdering Facility: [facility] Address: [address] [place] [address] Performed By: #### 1 9123-9, 18951-8 ####[facility] LABORATORYCLIA [id number] [place] [address] [place] Sodium [Moles/Vol] 138 mmol/L Normal 136-144 [facility] Comment on above: Order Comment: Speci men Type: BLOOD SPECIMENOrdering Facility: [facility] Address: [address] [place] [address] Performed By: #### 1 9123-9, 39358-8 ####[facility] LABORATORYCLIA [id number] [address] [place] Urea nitrogen [Mass/Vol] 24 mg/dL Normal 9-24 [facility] Comment on above: Order Comment: Speci men Type: BLOOD SPECIMENOrdering Facility: [facility] Address: [address] [place] [address] Performed By: #### 1 9123-9, ####[facility] LABORATORYCLIA [id number] [address] [place] CASE MANAGEMon 06-24-2021 CASE MANAGEM Normal [facility] CASE MANAGEM Normal [facility] CASE MANAGEM Normal [facility] CBC panel Auto (Bld)on 06-24 Erythrocyte distribution width (RBC) [Ratio] 16.1 % High 11.5-15.0 [facility] Comment on above: Order Comment: Speci men Type: BLOOD SPECIMENOrdering Facility: [facility] Address: [address] [place] [address] Performed By: #### 5 8410-2 ####[facility] LABORATORYCLIA [id number] [place] [address] [place] Hematocrit (Bld) [Volume fraction] 31.7 % Low 39.0-51.0 [facility] Comment on above: Order Comment: Speci men Type: BLOOD SPECIMENOrdering Facility: [facility] Address: [address] [place] [address] Performed By: #### 5 8410-2 ####[facility] LABORATORYCLIA [id number] [address] [facility] Hemoglobin (Bld) [Mass/Vol] 9.7 g/dL Low 13.0-17.0 [facility] Comment on above: Order Comment: Speci men Type: BLOOD SPECIMENOrdering Facility: [facility] Address: [address] [place] [address] Performed By: #### 5 8410-2 ####[facility] LABORATORYCLIA [id number] [address] [place] [facility] MCH (RBC) [Entitic mass] 28.0 pg Normal 26.0-34.0 [facility] Comment on above: Order Comment: Speci men Type: BLOOD SPECIMENOrdering Facility: [facility] Address: [address] [place] [address] Performed By: #### 5 8410-2 ####[facility] LABORATORYCLIA [id number] [address] MCHC (RBC) [Mass/Vol] 30.6 g/dL Normal 30.5-36.0 [facility] Comment on above: Order Comment: Speci men Type: BLOOD SPECIMENOrdering Facility: [facility] Address: [address] [place] [address] Performed By: #### 5 8410-2 ####[facility] LABORATORYCLIA [id number] [address] MCV (RBC) [Entitic vol] 91.4 fL Normal 80.0-100.0 [facility] Comment on above: Order Comment: Speci men Type: BLOOD SPECIMENOrdering Facility: [facility] Address: [address] [place] [address] Performed By: #### 5 8410-2 ####[facility] LABORATORYCLIA [id number] [address] [place] Nucleated RBC (Bld) [#/Vol] 10*3/uL Normal <0.01 [facility] Comment on above: Order Comment: Speci men Type: BLOOD SPECIMENOrdering Facility: [facility] Address: [address] [place] [address] Performed By: #### 5 8410-2 ####[facility] LABORATORYCLIA [id number] [address] [place] Platelet mean volume (Bld) [Entitic vol] 11.0 fL Normal 9.0-12.7 [facility] Comment on above: Order Comment: Speci men Type: BLOOD SPECIMENOrdering Facility: [facility] Address: [address] [place] [address] Performed By: #### 5 8410-2 ####[facility] LABORATORYCLIA [id number] [address] Platelets (Bld) [#/Vol] 358 10*3/uL Normal 150-400 [facility] Comment on above: Order Comment: Speci men Type: BLOOD SPECIMENOrdering Facility: [facility] Address: [address] [place] [address] Performed By: #### 5 8410-2 ####[facility] LABORATORYCLIA [id number] [address] [place] RBC (Bld) [#/Vol] 3.47 10*6/uL Low 4.20-6.00 [facility] Comment on above: Order Comment: Speci men Type: BLOOD SPECIMENOrdering Facility: [facility] Address: [address] [place] [address] Performed By: #### 5 8410-2 ####[facility] LABORATORYCLIA [id number] [address] [place] WBC (Bld) [#/Vol] 10.07 10*3/uL Normal 3.70-11.00 [facility] Comment on above: Order Comment: Speci men Type: BLOOD SPECIMENOrdering Facility: [facility] Address: [address] [place] [address] Performed By: #### 5 8410-2 ####[facility] LABORATORYCLIA [id number] [place] [address] [place] Magnesium SerPl-mCncon 06-24 Magnesium [Mass/Vol] 2.3 mg/dL Normal 1.7-2.3 [facility] Comment on above: Order Comment: Speci men Type: BLOOD SPECIMENOrdering Facility: [facility] Address: [address] [place] [address] Performed By: #### 1 9123-9, 01728-9 ####[facility] LABORATORYCLIA [id number] [place] [address] [place] ALLIED HEALTHon 06-23-2021 ALLIED HEALTH Normal [facility] Basic metabolic 2000 panelon 06-23-2021 Anion gap [Moles/Vol] 9 mmol/L Normal 9-18 [facility] Comment on above: Order Comment: Speci men Type: BLOOD SPECIMENOrdering Facility: [facility] Address: [address] [place] [address] Performed By: #### 1 9123-9, 16719-4 ####[facility]ORATORYCLIA [id number] [place] [address] [place] Calcium [Mass/Vol] 8.4 mg/dL Low 8.5-10.2 [facility] Comment on above: Order Comment: Speci men Type: BLOOD SPECIMENOrdering Facility: [facility] Address: [address] [place] [address] Performed By: #### 1 9123-9, 19982-4 ####[facility]ORATORYCLIA [id number] [place] [address] [place] Chloride [Moles/Vol] 104 mmol/L Normal 97-105 [facility] Comment on above: Order Comment: Speci men Type: BLOOD SPECIMENOrdering Facility: [facility] Address: [address] [place], [place] [address] [address] Performed By: #### 1 9123-9, 96821-5 ####[facility]ORATORYCLIA [id number] [address] [place] [facility] CO2 [Moles/Vol] 26 mmol/L Normal 22-30 [facility] Comment on above: Order Comment: Speci men Type: BLOOD SPECIMENOrdering Facility: [facility] Address: [address] [place] [address] Performed By: #### 1 9123-9, 01030-8 ####[facility]ORATORYCLIA [id number] [address] [place] Creatinine [Mass/Vol] 0.62 mg/dL Low 0.73-1.22 [facility] Comment on above: Order Comment: Speci men Type: BLOOD SPECIMENOrdering Facility: [facility] Address: [address] [place] [address] Performed By: #### 1 9123-9, 65490-4 ####[facility]ORATORYCLIA [id number] [address] [place] GFR/1.73 sq M.predicted MDRD (S/P/Bld) [Vol rate/Area] mL/min/{1.73_m2} Normal [facility] Comment on above: Order Comment: Speci men Type: BLOOD SPECIMENOrdering Facility: [facility] Address: [address] [place] [address] Result Comment: >60e GFR (Estimated GFR) Units [...] actual GFR. Performed By: #### 1 9123-9, 52171-1 ####[facility]ORATORYCLIA [id number] [place] [address] [place] Glucose [Mass/Vol] 111 mg/dL High 74-99 [facility] Comment on above: Order Comment: Speci men Type: BLOOD SPECIMENOrdering Facility: [facility] Address: [address] [place] [address] Result Comment: The [place] [employer] [...] 2016.39(Suppl 1). Performed By: #### 1 9123-9, 29922-4 ####[facility]ORATORYCLIA [id number] [place] [address] [place] Potassium [Moles/Vol] 4.1 mmol/L Normal 3.7-5.1 [facility] Comment on above: Order Comment: Speci men Type: BLOOD SPECIMENOrdering Facility: [facility] Address: [address] [place] [address] Performed By: #### 1 9123-9, 50463-3 ####[facility] LABORATORYCLIA [id number] [place] [address] [place] Sodium [Moles/Vol] 139 mmol/L Normal 136-144 [facility] Comment on above: Order Comment: Speci men Type: BLOOD SPECIMENOrdering Facility: [facility] Address: [address] [place] [address] Performed By: #### 1 9123-9-2 ####[facility]ORATORYCLIA [id number] [place] [address] [place] Urea nitrogen [Mass/Vol] 26 mg/dL High 9-24 [facility] Comment on above: Order Comment: Speci men Type: BLOOD SPECIMENOrdering Facility: [facility] Address: [address] [place] [address] Performed By: #### 1 9123-9, 81234-2 ####[facility]ORATORYCLIA [id number] [address] [facility] CASE MANAGEMon 06-23-2021 CASE MANAGEM Normal [facility] CBC panel Auto (Bld)on 06-23 Erythrocyte distribution width (RBC) [Ratio] 16.0 % High 11.5-15.0 [facility] Comment on above: Order Comment: Speci men Type: BLOOD SPECIMENOrdering Facility: [facility] Address: [address] [place] [address] Performed By: #### 5 8410-2 ####[facility]ORATORYCLIA [id number] [address] [place] [facility] Hematocrit (Bld) [Volume fraction] 31.1 % Low 39.0-51.0 [facility] Comment on above: Order Comment: Speci men Type: BLOOD SPECIMENOrdering Facility: [facility] Address: [address] [place] [address] Performed By: #### 5 8410-2 ####[facility]ORATORYCLIA [id number] [place] [address] [place] Hemoglobin (Bld) [Mass/Vol] 9.5 g/dL Low 13.0-17.0 [facility] Comment on above: Order Comment: Speci men Type: BLOOD SPECIMENOrdering Facility: [facility] Address: [address] [place] [address] Performed By: #### 5 8410-2 ####[facility]ORATORYCLIA [id number] [place] [address] [place] MCH (RBC) [Entitic mass] 28.1 pg Normal 26.0-34.0 [facility] Comment on above: Order Comment: Speci men Type: BLOOD SPECIMENOrdering Facility: [facility] Address: [address] [place] [address] Performed By: #### 5 8410-2 ####[facility]ORATORYCLIA [id number] [address] MCHC (RBC) [Mass/Vol] 30.5 g/dL Normal 30.5-36.0 [facility] Comment on above: Order Comment: Speci men Type: BLOOD SPECIMENOrdering Facility: [facility] Address: [address] [place] [address] Performed By: #### 5 8410-2 ####[facility]ORATORYCLIA [id number] [address] MCV (RBC) [Entitic vol] 92.0 fL Normal 80.0-100.0 [facility] Comment on above: Order Comment: Speci men Type: BLOOD SPECIMENOrdering Facility: [facility] Address: [address] [place] [address] Performed By: #### 5 8410-2 ####[facility]ORATORYCLIA [id number] [address] Nucleated RBC (Bld) [#/Vol] 10*3/uL Normal <0.01 [facility] Comment on above: Order Comment: Speci men Type: BLOOD SPECIMENOrdering Facility: [facility] Address: [address] [place] [address] Performed By: #### 5 8410-2 ####[facility]ORATORYCLIA [id number] [address] Platelet mean volume (Bld) [Entitic vol] 11.0 fL Normal 9.0-12.7 [facility] Comment on above: Order Comment: Speci men Type: BLOOD SPECIMENOrdering Facility: [facility] Address: [address] [place] [address] Performed By: #### 5 8410-2 ####[facility]ORATORYCLIA [id number] [place] [address] [place] Platelets (Bld) [#/Vol] 361 10*3/uL Normal 150-400 [facility] Comment on above: Order Comment: Speci men Type: BLOOD SPECIMENOrdering Facility: [facility] Address: [address] [place] [address] Performed By: #### 5 8410-2 ####[facility]ORATORYCLIA [id number] [place] [address] [place] RBC (Bld) [#/Vol] 3.38 10*6/uL Low 4.20-6.00 [facility] Comment on above: Order Comment: Speci men Type: BLOOD SPECIMENOrdering Facility: [facility] Address: [address] [place] [address] Performed By: #### 5 8410-2 ####[facility] LABORATORYCLIA [id number] [address] [facility] WBC (Bld) [#/Vol] 9.02 10*3/uL Normal 3.70-11.00 [facility] Comment on above: Order Comment: Speci men Type: BLOOD SPECIMENOrdering Facility: [facility] Address: [address] [place] [address] Performed By: #### 5 8410-2 ####[facility]ORATORYCLIA [id number] [address] [place] CONSULT PROGon 06-23-2021 CONSULT PROG Normal [facility] CONSULT PROG Normal [facility] Magnesium SerPl-mCncon 06-23 Magnesium [Mass/Vol] 2.4 mg/dL High 1.7-2.3 [facility] Comment on above: Order Comment: Speci men Type: BLOOD SPECIMENOrdering Facility: [facility] Address: [address] [place] [address] Performed By: #### 1 9123-9, 36064-2 ####[facility]ORATORYCLIA [id number] [address] [place] THERAPY NTon 06-23-2021 THERAPY NT Normal [facility] Vancomycin random [Mass/Vol] on 06-23-2021 Vancomycin [Mass/Vol] 22.8 ug/mL High 10.0-20.0 [facility] Comment on above: Order Comment: Speci men Type: BLOOD SPECIMENOrdering Facility: [facility] Address: [address] [place] [address] Result Comment: Refe rence ranges and high/low indicator flags are provided as general guidelines only. The treating physician must determine appropriate target levels/dosing based on the specific clinical situation. Performed By: #### 4 091-5 ####[facility]ORATORYCLIA [id number] [address] [place] XR MOD BARIUM SWALLOW W SPEE Lore 06-23-2021 XR MOD BARIUM SWALLOW W SPEECH Normal [facility] Basic metabolic 2000 panelon 06-22-2021 Anion gap [Moles/Vol] 6 mmol/L Low 9-18 [facility] Comment on above: Order Comment: Speci men Type: BLOOD SPECIMENOrdering Facility: [facility] Address: [address] [place] [address] Performed By: #### 2 4321-2, 12745-4 ####[facility]ORATORYCLIA [id number] [place] [address] [place] Calcium [Mass/Vol] 8.5 mg/dL Normal 8.5-10.2 [facility] Comment on above: Order Comment: Speci men Type: BLOOD SPECIMENOrdering Facility: [facility] Address: [address] [place], [place] [address] Performed By: #### 2 4321-2, ####[facility]ORATORYCLIA [id number] [place] [address] [place] Chloride [Moles/Vol] 105 mmol/L Normal 97-105 [facility] Comment on above: Order Comment: Speci men Type: BLOOD SPECIMENOrdering Facility: [facility] Address: [address] [place], [place] [address] [address] Performed By: #### 2 4321-2, ####[facility]ORATORYCLIA [id number] [address] [place] CO2 [Moles/Vol] 26 mmol/L Normal 22-30 [facility] Comment on above: Order Comment: Speci men Type: BLOOD SPECIMENOrdering Facility: [facility] Address: [address] [place] [address] Performed By: #### 2 43205-08, ####[facility]ORATORYCLIA [id number] [address] [place] Creatinine [Mass/Vol] 0.56 mg/dL Low 0.73-1.22 [facility] Comment on above: Order Comment: Speci men Type: BLOOD SPECIMENOrdering Facility: [facility] Address: [address] [place] [address] Performed By: #### 2 43205-08, ####[facility]ORATORYCLIA [id number] [address] [place] GFR/1.73 sq M.predicted MDRD (S/P/Bld) [Vol rate/Area] mL/min/{1.73_m2} Normal [facility] Comment on above: Order Comment: Speci men Type: BLOOD SPECIMENOrdering Facility: [facility] Address: [address] [place] [address] Result Comment: >60e GFR (Estimated GFR) Units [...] reflect actual GFR. Performed By: #### 2 ####[facility]ATORYCLIA [id number] [place] [address] [place] Glucose [Mass/Vol] 120 mg/dL High 74-99 [facility] Comment on above: Order Comment: Speci men Type: BLOOD SPECIMENOrdering Facility: [facility] Address: [address] [place] [address] Result Comment: The [place] [employer] [...] Care. 2016.39(Suppl 1). Performed By: #### 2 ####[facility]ATORYCLIA [id number] [place] [address] [place] Potassium [Moles/Vol] 4.0 mmol/L Normal 3.7-5.1 [facility] Comment on above: Order Comment: Speci men Type: BLOOD SPECIMENOrdering Facility: [facility] Address: [address] [place], [place] [id number] Performed By: #### 2 ####[facility]ORYCLIA [id number] [place] [id number] [place] Sodium [Moles/Vol] 137 mmol/L Normal 136-144 [facility] Comment on above: Order Comment: Speci men Type: BLOOD SPECIMENOrdering Facility: [facility] Address: [address] [place], [place] [address] Performed By: #### 2 ####[facility]ATORYCLIA [id number] [address] [place] Urea nitrogen [Mass/Vol] 25 mg/dL High 9-24 [facility] Comment on above: Order Comment: Speci men Type: BLOOD SPECIMENOrdering Facility: [facility] Address: [address] [place] [address] Performed By: #### 2 4321-2, 01632-5 ####[facility]ORYCLIA [id number] [address] [place] CASE MANAGEMon 06-22-2021 CASE MANAGEM Normal [facility] CBC panel Auto (Bld)on 06-22 Erythrocyte distribution width (RBC) [Ratio] 16.0 % High 11.5-15.0 [facility] Comment on above: Order Comment: Speci men Type: BLOOD SPECIMENOrdering Facility: [facility] Address: [address] [place] [address] Performed By: #### 5 8410-2 ####[facility]ORYCLIA [id number] [address] [place] Hematocrit (Bld) [Volume fraction] 30.5 % Low 39.0-51.0 [facility] Comment on above: Order Comment: Speci men Type: BLOOD SPECIMENOrdering Facility: [facility] Address: [address] [place] [address] Performed By: #### 5 8410-2 ####[facility]ORYCLIA [id number] [address] [place] Hemoglobin (Bld) [Mass/Vol] 9.3 g/dL Low 13.0-17.0 [facility] Comment on above: Order Comment: Speci men Type: BLOOD SPECIMENOrdering Facility: [facility] Address: [address] [place] [address] Performed By: #### 5 8410-2 ####[facility]ATORYCLIA [id number] [address] [place] MCH (RBC) [Entitic mass] 28.4 pg Normal 26.0-34.0 [facility] Comment on above: Order Comment: Speci men Type: BLOOD SPECIMENOrdering Facility: [facility] Address: [address] [place] [address] Performed By: #### 5 8410-2 ####[facility]ATORYCLIA [id number] [address] MCHC (RBC) [Mass/Vol] 30.5 g/dL Normal 30.5-36.0 [facility] Comment on above: Order Comment: Speci men Type: BLOOD SPECIMENOrdering Facility: [facility] Address: [address] [place] [address] Performed By: #### 5 8410-2 ####[facility]ATORYCLIA [id number] [address] MCV (RBC) [Entitic vol] 93.3 fL Normal 80.0-100.0 [facility] Comment on above: Order Comment: Speci men Type: BLOOD SPECIMENOrdering Facility: [facility] Address: [address] [place] [address] Performed By: #### 5 8410-2 ####[facility]ATORYCLIA [id number] [address] Nucleated RBC (Bld) [#/Vol] 10*3/uL Normal <0.01 [facility] Comment on above: Order Comment: Speci men Type: BLOOD SPECIMENOrdering Facility: [facility] Address: [address] [place] [address] Performed By: #### 5 8410-2 ####[facility]ORYCLIA [id number] [address] Platelet mean volume (Bld) [Entitic vol] 11.5 fL Normal 9.0-12.7 [facility] Comment on above: Order Comment: Speci men Type: BLOOD SPECIMENOrdering Facility: [facility] Address: [address] [place] [address] Performed By: #### 5 8410-2 ####[facility] [id number] [address] [place] Platelets (Bld) [#/Vol] 346 10*3/uL Normal 150-400 [facility] Comment on above: Order Comment: Speci men Type: BLOOD SPECIMENOrdering Facility: [facility] Address: [address] [place] [address] Performed By: #### 5 8410-2 ####[facility]ORYCLIA [id number] [address] [place] RBC (Bld) [#/Vol] 3.27 10*6/uL Low 4.20-6.00 [facility] Comment on above: Order Comment: Speci men Type: BLOOD SPECIMENOrdering Facility: [facility] Address: [address] [place] [address] Performed By: #### 5 8410-2 ####[facility]ITALCLIA [id number] [address] [facility] WBC (Bld) [#/Vol] 9.44 10*3/uL Normal 3.70-11.00 [facility] Comment on above: Order Comment: Speci men Type: BLOOD SPECIMENOrdering Facility: [facility] Address: [address] [place] [address] Performed By: #### 5 8410-2 ####[facility]ORYCLIA [id number] [address] [place] HEMOGLOBIN (HGB)on Hemoglobin (Bld) [Mass/Vol] 9.7 g/dL Low 13.0-17.0 [facility] Comment on above: Order Comment: Speci men Type: BLOOD SPECIMENOrdering Facility: [facility] Address: [address] [place] [address] Performed By: #### H GB ####[facility]ATORYCLIA [id number] [address] [place] Magnesium SerPl-mCncon 06-22 Magnesium [Mass/Vol] 2.4 mg/dL High 1.7-2.3 [facility] Comment on above: Order Comment: Speci men Type: BLOOD SPECIMENOrdering Facility: [facility] Address: [address] [place] [address] Performed By: #### 2 4321-2, ####[facility]ATORYCLIA [id number] [address] [facility] THERAPY NTon 06-22-2021 THERAPY NT Normal [facility] THERAPY NT Normal [facility] aPTT PPPon 06-22-2021 aPTT Coag (PPP) [Time] 62.3 s High 23.0-32.4 [facility] Comment on above: Order Comment: Speci men Type: BLOOD SPECIMENOrdering Facility: [facility] Address: [address] [place] [address] Performed By: #### 1 4979-9 ####[facility]ORYCLIA [id number] [address] [place] ALLIED HEALTHon 06-21-2021 ALLIED HEALTH Normal [facility] Basic metabolic 2000 panelon 06-21-2021 Anion gap [Moles/Vol] 8 mmol/L Low 9-18 [facility] Comment on above: Order Comment: Speci men Type: BLOOD SPECIMENOrdering Facility: [facility] Address: [address] [place] [address] Performed By: #### 2 4321-2, ####[facility]ATORYCLIA [id number] [place] [address] [place] Calcium [Mass/Vol] 8.2 mg/dL Low 8.5-10.2 [facility] Comment on above: Order Comment: Speci men Type: BLOOD SPECIMENOrdering Facility: [facility] Address: [address] [place] [address] Performed By: #### 2 4321-2, ####[facility]ATORYCLIA [id number] [place] [address] [place] Chloride [Moles/Vol] 108 mmol/L High 97-105 [facility] Comment on above: Order Comment: Speci men Type: BLOOD SPECIMENOrdering Facility: [facility] Address: [address] [address] Performed By: #### 2 4321-2, ####[facility]ATORYCLIA [id number] [place] [address] [place] CO2 [Moles/Vol] 24 mmol/L Normal 22-30 [facility] Comment on above: Order Comment: Speci men Type: BLOOD SPECIMENOrdering Facility: [facility] Address: [address] [place] [address] Performed By: #### 2 43205-08, ####[facility]ATORYCLIA [id number] [address] [place] Creatinine [Mass/Vol] 0.61 mg/dL Low 0.73-1.22 [facility] Comment on above: Order Comment: Speci men Type: BLOOD SPECIMENOrdering Facility: [facility] Address: [address] [place] [address] Performed By: #### 2 43205-08, ####[facility]ORYCLIA [id number] [address] [place] GFR/1.73 sq M.predicted MDRD (S/P/Bld) [Vol rate/Area] mL/min/{1.73_m2} Normal [facility] Comment on above: Order Comment: Speci men Type: BLOOD SPECIMENOrdering Facility: [facility] Address: [address] [place] [address] Result Comment: >60e GFR (Estimated GFR) Units [...] actual GFR. Performed By: #### 2 4321-, 33565-5 ####[facility]ATORYCLIA [id number] [place] [address] [place] Glucose [Mass/Vol] 211 mg/dL High 74-99 [facility] Comment on above: Order Comment: Shira feldman Type: BLOOD SPECIMENOrdering Facility: [facility] Address: [address] [phone] Result Comment: The [place] [employer] [...] 2016.39(Suppl 1). Performed By: #### 2 432-, ####[facility]ATORYCLIA [id number] [place] [address] [place] Potassium [Moles/Vol] 4.3 mmol/L Normal 3.7-5.1 [facility] Comment on above: Order Comment: Shira feldman Type: BLOOD SPECIMENOrdering Facility: [facility] Address: [address] [phone] Performed By: #### 2 432-, ####[facility]ATORYCLIA [id number] [place] [address] [place] Sodium [Moles/Vol] 140 mmol/L Normal 136-144 [facility] Comment on above: Order Comment: Shira feldman Type: BLOOD SPECIMENOrdering Facility: [facility] Address: [address] [address] Performed By: #### 2 4321-2, ####[facility]ATORYCLIA [id number] [address] [place] [facility] Urea nitrogen [Mass/Vol] 26 mg/dL High 9-24 [facility] Comment on above: Order Comment: Speci men Type: BLOOD SPECIMENOrdering Facility: [facility] Address: [address] [place] [address] Performed By: #### 2 4321-2, ####[facility]ATORYCLIA [id number] [address] CBC panel Auto (Bld)on 06-21 Erythrocyte distribution width (RBC) [Ratio] 16.1 % High 11.5-15.0 [facility] Comment on above: Order Comment: Speci men Type: BLOOD SPECIMENOrdering Facility: [facility] Address: [address] [place] [address] Performed By: #### 5 8410-2 ####[facility]ATORYCLIA [id number] [address] Hematocrit (Bld) [Volume fraction] 29.7 % Low 39.0-51.0 [facility] Comment on above: Order Comment: Speci men Type: BLOOD SPECIMENOrdering Facility: [facility] Address: [address] [place] [address] Performed By: #### 5 8410-2 ####[facility]ATORYCLIA [id number] [address] [place] [facility] Hemoglobin (Bld) [Mass/Vol] 9.2 g/dL Low 13.0-17.0 [facility] Comment on above: Order Comment: Speci men Type: BLOOD SPECIMENOrdering Facility: [facility] Address: [address] [place] [address] Performed By: #### 5 8410-2 ####[facility]ATORYCLIA [id number] [place] [address] MCH (RBC) [Entitic mass] 28.8 pg Normal 26.0-34.0 [facility] Comment on above: Order Comment: Speci men Type: BLOOD SPECIMENOrdering Facility: [facility] Address: [address] [place] [address] Performed By: #### 5 8410-2 ####[facility]ATORYCLIA [id number] [address] MCHC (RBC) [Mass/Vol] 31.0 g/dL Normal 30.5-36.0 [facility] Comment on above: Order Comment: Speci men Type: BLOOD SPECIMENOrdering Facility: [facility] Address: [address] [place] [address] Performed By: #### 5 8410-2 ####[facility]ORYCLIA [id number] [address] MCV (RBC) [Entitic vol] 93.1 fL Normal 80.0-100.0 [facility] Comment on above: Order Comment: Speci men Type: BLOOD SPECIMENOrdering Facility: [facility] Address: [address] [place] [address] Performed By: #### 5 8410-2 ####[facility]ORYCLIA [id number] [address] Nucleated RBC (Bld) [#/Vol] 10*3/uL Normal <0.01 [facility] Comment on above: Order Comment: Speci men Type: BLOOD SPECIMENOrdering Facility: [facility] Address: [address] [place] [address] Performed By: #### 5 8410-2 ####[facility]ORYCLIA [id number] [address] Platelet mean volume (Bld) [Entitic vol] 11.6 fL Normal 9.0-12.7 [facility] Comment on above: Order Comment: Speci men Type: BLOOD SPECIMENOrdering Facility: [facility] Address: [address] [place] [address] Performed By: #### 5 8410-2 ####[facility]ORYCLIA [id number] [address] [facility] Platelets (Bld) [#/Vol] 347 10*3/uL Normal 150-400 [facility] Comment on above: Order Comment: Speci men Type: BLOOD SPECIMENOrdering Facility: [facility] Address: [address] [place] [address] Performed By: #### 5 8410-2 ####[facility]ORYCLIA [id number] [address] [place] RBC (Bld) [#/Vol] 3.19 10*6/uL Low 4.20-6.00 [facility] Comment on above: Order Comment: Speci men Type: BLOOD SPECIMENOrdering Facility: [facility] Address: [address] [place] [address] Performed By: #### 5 8410-2 ####[facility]ATORYCLIA [id number] [address] [facility] WBC (Bld) [#/Vol] 10.29 10*3/uL Normal 3.70-11.00 [facility] Comment on above: Order Comment: Speci men Type: BLOOD SPECIMENOrdering Facility: [facility] Address: [address] [place] [address] Performed By: #### 5 8410-2 ####[facility]ORYCLIA [id number] [address] CONSULT PROGon 06-21-2021 CONSULT PROG Normal [facility] CONSULT PROG Normal [facility] Magnesium SerPl-mCncon 06-21 Magnesium [Mass/Vol] 2.5 mg/dL High 1.7-2.3 [facility] Comment on above: Order Comment: Speci men Type: BLOOD SPECIMENOrdering Facility: [facility] Address: [address] [place] [address] Performed By: #### 2 4321-2, 41761-4 ####[facility]ATORYCLIA [id number] [place] [address] [place] NUTRITIONon 06-21-2021 NUTRITION Normal [facility] XR CHEST 1V FRONTALon 2021 XR CHEST 1V FRONTAL Normal [facility] aPTT PPPon 06-21-2021 aPTT Coag (PPP) [Time] 68.5 s High 23.0-32.4 [facility] Comment on above: Order Comment: Speci men Type: BLOOD SPECIMENOrdering Facility: [facility] Address: [address] [place] [address] Performed By: #### 1 4979-9 ####[facility]ORYCLIA [id number] [address] [place] [facility] aPTT Coag (PPP) [Time] 57.8 s High 23.0-32.4 [facility] Comment on above: Order Comment: Speci men Type: BLOOD SPECIMENOrdering Facility: [facility] Address: [address] [place] [address] Performed By: #### 1 4979-9 ####[facility]ORYCLIA [id number] [place] [address] [place] Basic metabolic 2000 panelon 06-20-2021 Anion gap [Moles/Vol] 9 mmol/L Normal 9-18 [facility] Comment on above: Order Comment: Speci men Type: BLOOD SPECIMENOrdering Facility: [facility] Address: [address] [place] [address] Performed By: #### 2 4321-2, 00786-9 ####[facility]ORYCLIA [id number] [address] [place] Calcium [Mass/Vol] 8.3 mg/dL Low 8.5-10.2 [facility] Comment on above: Order Comment: Speci men Type: BLOOD SPECIMENOrdering Facility: [facility] Address: [address] [place] [address] Performed By: #### 2 432-2, ####[facility]ORYCLIA [id number] [place] [address] [place] Chloride [Moles/Vol] 111 mmol/L High 97-105 [facility] Comment on above: Order Comment: Speci men Type: BLOOD SPECIMENOrdering Facility: [facility] Address: [address] [place] [address] Performed By: #### 2 432-2, ####[facility]ORYCLIA [id number] [place] [address] [place] CO2 [Moles/Vol] 24 mmol/L Normal 22-30 [facility] Comment on above: Order Comment: Speci men Type: BLOOD SPECIMENOrdering Facility: [facility] Address: [address] [place] [address] Performed By: #### 2 43205-08, ####[facility]ORYCLIA [id number] [address] [place] Creatinine [Mass/Vol] 0.64 mg/dL Low 0.73-1.22 [facility] Comment on above: Order Comment: Speci men Type: BLOOD SPECIMENOrdering Facility: [facility] Address: [address] [place] [address] Performed By: #### 2 43205-08, ####[facility]ORYCLIA [id number] [place] [address] [place] GFR/1.73 sq M.predicted MDRD (S/P/Bld) [Vol rate/Area] mL/min/{1.73_m2} Normal [facility] Comment on above: Order Comment: Speci men Type: BLOOD SPECIMENOrdering Facility: [facility] Address: [address] [place] [address] Result Comment: >60e GFR (Estimated GFR) Units [...] actual GFR. Performed By: #### 2 43205-08, ####[facility]ORYCLIA [id number] [place] [address] [place] Glucose [Mass/Vol] 114 mg/dL High 74-99 [facility] Comment on above: Order Comment: Shira feldman Type: BLOOD SPECIMENOrdering Facility: [facility] Address: [address] [phone] Result Comment: The [place] [employer] [...] 2016.39(Suppl 1). Performed By: #### 2 4320-06, ####[facility]ORYCLIA [id number] [place] [address] [place] Potassium [Moles/Vol] 4.1 mmol/L Normal 3.7-5.1 [facility] Comment on above: Order Comment: Shira feldman Type: BLOOD SPECIMENOrdering Facility: [facility] Address: [address] [phone] Performed By: #### 2 43205-08, ####[facility]ORYCLIA [id number] [place] [address] [place] Sodium [Moles/Vol] 144 mmol/L Normal 136-144 [facility] Comment on above: Order Comment: Speci men Type: BLOOD SPECIMENOrdering Facility: [facility] Address: [address] [place] [address] Performed By: #### 2 4321-2, ####[facility]ORYCLIA [id number] [address] [place] [facility] Urea nitrogen [Mass/Vol] 27 mg/dL High 9-24 [facility] Comment on above: Order Comment: Speci men Type: BLOOD SPECIMENOrdering Facility: [facility] Address: [address] [place] [address] Performed By: #### 2 432-2, ####[facility]ORYCLIA [id number] [address] [facility] CASE MANAGEMon 06-20-2021 CASE MANAGEM Normal [facility] CBC panel Auto (Bld)on 06-20 Erythrocyte distribution width (RBC) [Ratio] 15.9 % High 11.5-15.0 [facility] Comment on above: Order Comment: Speci men Type: BLOOD SPECIMENOrdering Facility: [facility] Address: [address] [place] [address] Performed By: #### 5 8410-2 ####[facility]ORYCLIA [id number] [address] [place] Hematocrit (Bld) [Volume fraction] 31.0 % Low 39.0-51.0 [facility] Comment on above: Order Comment: Speci men Type: BLOOD SPECIMENOrdering Facility: [facility] Address: [address] [place] [address] Performed By: #### 5 8410-2 ####[facility]ORYCLIA [id number] [address] [place] Hemoglobin (Bld) [Mass/Vol] 9.2 g/dL Low 13.0-17.0 [facility] Comment on above: Order Comment: Speci men Type: BLOOD SPECIMENOrdering Facility: [facility] Address: [address] [place] [address] Performed By: #### 5 8410-2 ####[facility]ORYCLIA [id number] [address] MCH (RBC) [Entitic mass] 27.4 pg Normal 26.0-34.0 [facility] Comment on above: Order Comment: Speci men Type: BLOOD SPECIMENOrdering Facility: [facility] Address: [address] [place] [address] Performed By: #### 5 8410-2 ####[facility]ORYCLIA [id number] [address] MCHC (RBC) [Mass/Vol] 29.7 g/dL Low 30.5-36.0 [facility] Comment on above: Order Comment: Speci men Type: BLOOD SPECIMENOrdering Facility: [facility] Address: [address] [place] [address] Performed By: #### 5 8410-2 ####[facility]ORYCLIA [id number] [address] MCV (RBC) [Entitic vol] 92.3 fL Normal 80.0-100.0 [facility] Comment on above: Order Comment: Speci men Type: BLOOD SPECIMENOrdering Facility: [facility] Address: [address] [place] [address] Performed By: #### 5 8410-2 ####[facility]ORYCLIA [id number] [address] Nucleated RBC (Bld) [#/Vol] 10*3/uL Normal <0.01 [facility] Comment on above: Order Comment: Speci men Type: BLOOD SPECIMENOrdering Facility: [facility] Address: [address] [place] [address] Performed By: #### 5 8410-2 ####[facility]ORYCLIA [id number] [address] Platelet mean volume (Bld) [Entitic vol] 11.5 fL Normal 9.0-12.7 [facility] Comment on above: Order Comment: Speci men Type: BLOOD SPECIMENOrdering Facility: [facility] Address: [address] [place] [address] Performed By: #### 5 8410-2 ####[facility]ORYCLIA [id number] [address] [place] Platelets (Bld) [#/Vol] 343 10*3/uL Normal 150-400 [facility] Comment on above: Order Comment: Speci men Type: BLOOD SPECIMENOrdering Facility: [facility] Address: [address] [place] [address] Performed By: #### 5 8410-2 ####[facility]ORYCLIA [id number] [address] RBC (Bld) [#/Vol] 3.36 10*6/uL Low 4.20-6.00 [facility] Comment on above: Order Comment: Speci men Type: BLOOD SPECIMENOrdering Facility: [facility] Address: [address] [place] [address] Performed By: #### 5 8410-2 ####[facility]ATORYCLIA [id number] [address] WBC (Bld) [#/Vol] 10.71 10*3/uL Normal 3.70-11.00 [facility] Comment on above: Order Comment: Speci men Type: BLOOD SPECIMENOrdering Facility: [facility] Address: [address] [place] [address] Performed By: #### 5 8410-2 ####[facility]ORYCLIA [id number] [address] CONSULT PROGon 06-20-2021 CONSULT PROG Normal [facility] HEMOGLOBIN (HGB)on 2 Hemoglobin (Bld) [Mass/Vol] 9.7 g/dL Low 13.0-17.0 [facility] Comment on above: Order Comment: Speci men Type: BLOOD SPECIMENOrdering Facility: [facility] Address: [address] [place] [address] Performed By: #### H GB ####[facility]ATORYCLIA [id number] [address] [place] Magnesium SerPl-mCncon 06-20 Magnesium [Mass/Vol] 2.5 mg/dL High 1.7-2.3 [facility] Comment on above: Order Comment: Speci men Type: BLOOD SPECIMENOrdering Facility: [facility] Address: [address] [place] [address] Performed By: #### 2 4321-2, 09316-5 ####[facility]ORATORYCLIA [id number] [address] [place] NURSING PROGon 06-20-2021 NURSING PROG Normal [facility] THERAPY NTon 06-20-2021 THERAPY NT Normal [facility] aPTT PPPon 06-20-2021 aPTT Coag (PPP) [Time] 93.5 s High 23.0-32.4 [facility] Comment on above: Order Comment: Speci men Type: BLOOD SPECIMENOrdering Facility: [facility] Address: [address] [place] [address] Performed By: #### 1 4979-9 ####[facility]ORATORYCLIA [id number] [address] [place] [facility] aPTT Coag (PPP) [Time] 47.1 s High 23.0-32.4 [facility] Comment on above: Order Comment: Speci men Type: BLOOD SPECIMENOrdering Facility: [facility] Address: [address] [place] [address] Performed By: #### 1 4979-9 ####[facility]ORATORYCLIA [id number] [place] [address] [place] Basic metabolic 2000 panelon 06-19-2021 Anion gap [Moles/Vol] 7 mmol/L Low 9-18 [facility] Comment on above: Order Comment: Speci men Type: BLOOD SPECIMENOrdering Facility: [facility] Address: [address] [place] [address] Performed By: #### 2 4321-2 ####[facility]ATORYCLIA [id number] [place] [address] [place] Calcium [Mass/Vol] 8.1 mg/dL Low 8.5-10.2 [facility] Comment on above: Order Comment: Speci men Type: BLOOD SPECIMENOrdering Facility: [facility] Address: [address] [place] [address] Performed By: #### 2 4321-2 ####[facility]ATORYCLIA [id number] [place] [address] [place] Chloride [Moles/Vol] 111 mmol/L High 97-105 [facility] Comment on above: Order Comment: Speci men Type: BLOOD SPECIMENOrdering Facility: [facility] Address: [address] [place] [address] Performed By: #### 2 4321-2 ####[facility]ATORYCLIA [id number] [place] [address] [place] CO2 [Moles/Vol] 24 mmol/L Normal 22-30 [facility] Comment on above: Order Comment: Speci men Type: BLOOD SPECIMENOrdering Facility: [facility] Address: [address] [place] [address] Performed By: #### 2 4321-2 ####[facility]ATORYCLIA [id number] [place] [address] [place] Creatinine [Mass/Vol] 0.71 mg/dL Low 0.73-1.22 [facility] Comment on above: Order Comment: Speci men Type: BLOOD SPECIMENOrdering Facility: [facility] Address: [address] [place] [address] Performed By: #### 2 4321-2 ####[facility]ORYCLIA [id number] [place] [address] [place] GFR/1.73 sq M.predicted MDRD (S/P/Bld) [Vol rate/Area] mL/min/{1.73_m2} Normal [facility] Comment on above: Order Comment: Shira feldman Type: BLOOD SPECIMENOrdering Facility: [facility] Address: [address] [place] [address] Result Comment: >60e GFR (Estimated GFR) Units [...] actual GFR. Performed By: #### 2 4321-2 ####[facility]ITAL[facility]IA [id number] [place] [address] [place] Glucose [Mass/Vol] 110 mg/dL High 74-99 [facility] Comment on above: Order Comment: Shira feldman Type: BLOOD SPECIMENOrdering Facility: [facility] Address: [address] [place] [address] Result Comment: The [place] [employer] [...] 2016.39(Suppl 1). Performed By: #### 2 4321-2 ####[facility]ATORYCLIA [id number] [address] [place] Potassium [Moles/Vol] 3.7 mmol/L Normal 3.7-5.1 [facility] Comment on above: Order Comment: Speci men Type: BLOOD SPECIMENOrdering Facility: [facility] Address: [address] [place] [address] Performed By: #### 2 4321-2 ####[facility]ORYCLIA [id number] [address] [place] Sodium [Moles/Vol] 142 mmol/L Normal 136-144 [facility] Comment on above: Order Comment: Speci men Type: BLOOD SPECIMENOrdering Facility: [facility] Address: [address] [place] [address] Performed By: #### 2 4321-2 ####[facility]ATORYCLIA [id number] [address] [place] [facility] Urea nitrogen [Mass/Vol] 26 mg/dL High 9-24 [facility] Comment on above: Order Comment: Speci men Type: BLOOD SPECIMENOrdering Facility: [facility] Address: [address] [place] [address] Performed By: #### 2 4321-2 ####[facility]ORYCLIA [id number] [address] STATES [place] [facility] CBC panel Auto (Bld)on 06-19 Erythrocyte distribution width (RBC) [Ratio] 15.7 % High 11.5-15.0 [facility] Comment on above: Order Comment: Speci men Type: BLOOD SPECIMENOrdering Facility: [facility] Address: [address] [place] [address] Performed By: #### 5 8410-2 ####[facility]ATORYCLIA [id number] [address] Hematocrit (Bld) [Volume fraction] 30.9 % Low 39.0-51.0 [facility] Comment on above: Order Comment: Speci men Type: BLOOD SPECIMENOrdering Facility: [facility] Address: [address] [place] [address] Performed By: #### 5 8410-2 ####[facility]ATORYCLIA [id number] [address] OF [facility] Hemoglobin (Bld) [Mass/Vol] 9.5 g/dL Low 13.0-17.0 [facility] Comment on above: Order Comment: Speci men Type: BLOOD SPECIMENOrdering Facility: [facility] Address: [address] [place] [address] Performed By: #### 5 8410-2 ####[facility]ATORYCLIA [id number] [address] MCH (RBC) [Entitic mass] 28.4 pg Normal 26.0-34.0 [facility] Comment on above: Order Comment: Speci men Type: BLOOD SPECIMENOrdering Facility: [facility] Address: [address] [place] [address] Performed By: #### 5 8410-2 ####[facility]ATORYCLIA [id number] [address] STATES [place] [facility] MCHC (RBC) [Mass/Vol] 30.7 g/dL Normal 30.5-36.0 [facility] Comment on above: Order Comment: Speci men Type: BLOOD SPECIMENOrdering Facility: [facility] Address: [address] [place] [address] Performed By: #### 5 8410-2 ####[facility]ATORYCLIA [id number] [address] [facility] MCV (RBC) [Entitic vol] 92.2 fL Normal 80.0-100.0 [facility] Comment on above: Order Comment: Speci men Type: BLOOD SPECIMENOrdering Facility: [facility] Address: [address] [place] [address] Performed By: #### 5 8410-2 ####[facility]ATORYCLIA [id number] [address] Nucleated RBC (Bld) [#/Vol] 10*3/uL Normal <0.01 [facility] Comment on above: Order Comment: Speci men Type: BLOOD SPECIMENOrdering Facility: [facility] Address: [address] [place] [address] Performed By: #### 5 8410-2 ####[facility]ATORYCLIA [id number] [place] [address] [place] Platelet mean volume (Bld) [Entitic vol] 11.7 fL Normal 9.0-12.7 [facility] Comment on above: Order Comment: Speci men Type: BLOOD SPECIMENOrdering Facility: [facility] Address: [address] [place] [address] Performed By: #### 5 8410-2 ####[facility]ATORYCLIA [id number] [address] [place] Platelets (Bld) [#/Vol] 323 10*3/uL Normal 150-400 [facility] Comment on above: Order Comment: Speci men Type: BLOOD SPECIMENOrdering Facility: [facility] Address: [address] [place] [address] Performed By: #### 5 8410-2 ####[facility]ATORYCLIA [id number] [place] [address] [place] RBC (Bld) [#/Vol] 3.35 10*6/uL Low 4.20-6.00 [facility] Comment on above: Order Comment: Speci men Type: BLOOD SPECIMENOrdering Facility: [facility] Address: [address] [place], [place] [address] Performed By: #### 5 8410-2 ####[facility]ATORYCLIA [id number] [address] [place] WBC (Bld) [#/Vol] 9.53 10*3/uL Normal 3.70-11.00 [facility] Comment on above: Order Comment: Speci men Type: BLOOD SPECIMENOrdering Facility: [facility] Address: [address] [place] [address] Performed By: #### 5 8410-2 ####[facility]ATORYCLIA [id number] [address] HEMOGLOBIN (HGB)on Hemoglobin (Bld) [Mass/Vol] 9.7 g/dL Low 13.0-17.0 [facility] Comment on above: Order Comment: Speci men Type: BLOOD SPECIMENOrdering Facility: [facility] Address: [address] [place] [address] Performed By: #### H GB ####[facility]ATORYCLIA [id number] [address] Magnesium SerPl-mCncon 06-19 Magnesium [Mass/Vol] 2.5 mg/dL High 1.7-2.3 [facility] Comment on above: Order Comment: Speci men Type: BLOOD SPECIMENOrdering Facility: [facility] Address: [address] [place] [address] Performed By: #### 1 9123-9, 2777-1 ####[facility]ATORYCLIA [id number] [address] NURSING PROGon 06-19-2021 NURSING PROG Normal [facility] Phosphate SerPl-mCncon 06-19 Phosphate [Mass/Vol] 2.6 mg/dL Low 2.7-4.8 [facility] Comment on above: Order Comment: Speci men Type: BLOOD SPECIMENOrdering Facility: [facility] Address: [address] [place] [address] Performed By: #### 1 9123-9, 2777-1 ####[facility]ATORYCLIA [id number] [address] aPTT PPPon 06-19-2021 aPTT Coag (PPP) [Time] 61.9 s High 23.0-32.4 [facility] Comment on above: Order Comment: Speci men Type: BLOOD SPECIMENOrdering Facility: [facility] Address: [address] [address] Performed By: #### 1 4979-9 ####[facility]ATORYCLIA [id number] [address] aPTT Coag (PPP) [Time] 68.6 s High 23.0-32.4 [facility] Comment on above: Order Comment: Speci men Type: BLOOD SPECIMENOrdering Facility: [facility] Address: [address] [place] [address] Performed By: #### 1 4979-9 ####[facility]ATORYCLIA [id number] [address] [place] [facility] aPTT Coag (PPP) [Time] 83.2 s High 23.0-32.4 [facility] Comment on above: Order Comment: Speci men Type: BLOOD SPECIMENOrdering Facility: [facility] Address: [address] [place] [address] Performed By: #### 1 4979-9 ####[facility]ATORYCLIA [id number] [place] [address] [place] Basic metabolic 2000 panelon 06-18-2021 Anion gap [Moles/Vol] 7 mmol/L Low 9-18 [facility] Comment on above: Order Comment: Speci men Type: BLOOD SPECIMENOrdering Facility: [facility] Address: [address] [place] [address] Performed By: #### 2 4321-2, , 2776-05 ####[facility]ATORYCLIA [id number] [address] [place] Calcium [Mass/Vol] 8.2 mg/dL Low 8.5-10.2 [facility] Comment on above: Order Comment: Speci men Type: BLOOD SPECIMENOrdering Facility: [facility] Address: [address] [place] [address] Performed By: #### 2 4321-2, , 27711-04 ####[facility]ORYCLIA [id number] [place] [address] [place] Chloride [Moles/Vol] 115 mmol/L High 97-105 [facility] Comment on above: Order Comment: Speci men Type: BLOOD SPECIMENOrdering Facility: [facility] Address: [address] [place] [address] Performed By: #### 2 4321-2, 01069-6, 2776- ####[facility]ATORYCLIA [id number] [address] [place] CO2 [Moles/Vol] 23 mmol/L Normal 22-30 [facility] Comment on above: Order Comment: Speci men Type: BLOOD SPECIMENOrdering Facility: [facility] Address: [address] [place] [address] Performed By: #### 2 4321-2, , 2776-05 ####[facility] SERVICESIA [id number] [address] [place] Creatinine [Mass/Vol] 0.70 mg/dL Low 0.73-1.22 [facility] Comment on above: Order Comment: Speci men Type: BLOOD SPECIMENOrdering Facility: [facility] Address: [address] [place] [address] Performed By: #### 2 4321-2, , 2776-05 ####[facility]ORYCLIA [id number] [place] [address] [place] GFR/1.73 sq M.predicted MDRD (S/P/Bld) [Vol rate/Area] mL/min/{1.73_m2} Normal [facility] Comment on above: Order Comment: Speci men Type: BLOOD SPECIMENOrdering Facility: [facility] Address: [address] [place] [address] Result Comment: >60e GFR (Estimated GFR) Units [...] Performed By: #### 2 4321-2, , 2776-05 ####[facility]ATORYCLIA [id number] [place] [address] [place] Glucose [Mass/Vol] 105 mg/dL High 74-99 [facility] Comment on above: Order Comment: Shira feldman Type: BLOOD SPECIMENOrdering Facility: [facility] Address: [address] [place], [place] [address] Result Comment: The [place] [employer] [...] Performed By: #### 2 4321-2, , 2776-05 ####[facility]ATORYCLIA [id number] [place] [address] [place] Potassium [Moles/Vol] 4.1 mmol/L Normal 3.7-5.1 [facility] Comment on above: Order Comment: Shira feldman Type: BLOOD SPECIMENOrdering Facility: [facility] Address: [address] [place] [address] Performed By: #### 2 4321-2, , 2776-05 ####[facility]ATORYCLIA [id number] [place] [address] [place] Sodium [Moles/Vol] 145 mmol/L High 136-144 [facility] Comment on above: Order Comment: Speci men Type: BLOOD SPECIMENOrdering Facility: [facility] Address: [address] [place] [address] Performed By: #### 2 4321-2, 58561-8, 2776- ####[facility]ORYCLIA [id number] [address] [place] Urea nitrogen [Mass/Vol] 27 mg/dL High 9-24 [facility] Comment on above: Order Comment: Speci men Type: BLOOD SPECIMENOrdering Facility: [facility] Address: [address] [place] [address] Performed By: #### 2 4321-2, , 2776-05 ####[facility]ORYCLIA [id number] [address] [place] [facility] CALCIUM IONIZED Bon 06-18-19 Calcium.ionized (BldV) [Mass/Vol] 1.22 mmol/L Normal 1.08-1.30 [facility] Comment on above: Order Comment: Speci men Type: BLOOD SPECIMENOrdering Facility: [facility] Address: [address] [place] [address] Performed By: #### I [place] ####[facility]ATORYCLIA [id number] [address] Calcium.ionized adjusted to pH 7.4 (Bld) [Moles/Vol] 1.23 mmol/L Normal 1.08-1.30 [facility] Comment on above: Order Comment: Speci men Type: BLOOD SPECIMENOrdering Facility: [facility] Address: [address] [place] [address] Performed By: #### I [place] ####[facility]ATORYCLIA [id number] [address] [place] CBC panel Auto (Bld)on 06-18 Erythrocyte distribution width (RBC) [Ratio] 15.8 % High 11.5-15.0 [facility] Comment on above: Order Comment: Speci men Type: BLOOD SPECIMENOrdering Facility: [facility] Address: [address] [place] [address] Performed By: #### 5 8410-2 ####[facility]ORYCLIA [id number] [address] Hematocrit (Bld) [Volume fraction] 29.5 % Low 39.0-51.0 [facility] Comment on above: Order Comment: Speci men Type: BLOOD SPECIMENOrdering Facility: [facility] Address: [address] [place] [address] Performed By: #### 5 8410-2 ####[facility]ORYCLIA [id number] [address] Hemoglobin (Bld) [Mass/Vol] 8.8 g/dL Low 13.0-17.0 [facility] Comment on above: Order Comment: Speci men Type: BLOOD SPECIMENOrdering Facility: [facility] Address: [address] [place] [address] Performed By: #### 5 8410-2 ####[facility]ATORYCLIA [id number] [address] MCH (RBC) [Entitic mass] 27.4 pg Normal 26.0-34.0 [facility] Comment on above: Order Comment: Speci men Type: BLOOD SPECIMENOrdering Facility: [facility] Address: [address] [place] [address] Performed By: #### 5 8410-2 ####[facility]ATORYCLIA [id number] [address] [place] MCHC (RBC) [Mass/Vol] 29.8 g/dL Low 30.5-36.0 [facility] Comment on above: Order Comment: Speci men Type: BLOOD SPECIMENOrdering Facility: [facility] Address: [address] [place] [address] Performed By: #### 5 8410-2 ####[facility]ORYCLIA [id number] [address] [place] [facility] MCV (RBC) [Entitic vol] 91.9 fL Normal 80.0-100.0 [facility] Comment on above: Order Comment: Speci men Type: BLOOD SPECIMENOrdering Facility: [facility] Address: [address] [place] [address] Performed By: #### 5 8410-2 ####[facility]ORYCLIA [id number] [address] Nucleated RBC (Bld) [#/Vol] 10*3/uL Normal <0.01 [facility] Comment on above: Order Comment: Speci men Type: BLOOD SPECIMENOrdering Facility: [facility] Address: [address] [place] [address] Performed By: #### 5 8410-2 ####[facility]ORYCLIA [id number] [address] Platelet mean volume (Bld) [Entitic vol] 11.9 fL Normal 9.0-12.7 [facility] Comment on above: Order Comment: Speci men Type: BLOOD SPECIMENOrdering Facility: [facility] Address: [address] [place] [address] Performed By: #### 5 8410-2 ####[facility]ORYCLIA [id number] [address] Platelets (Bld) [#/Vol] 291 10*3/uL Normal 150-400 [facility] Comment on above: Order Comment: Speci men Type: BLOOD SPECIMENOrdering Facility: [facility] Address: [address] [place] [address] Performed By: #### 5 8410-2 ####[facility]ORYCLIA [id number] [address] [place] RBC (Bld) [#/Vol] 3.21 10*6/uL Low 4.20-6.00 [facility] Comment on above: Order Comment: Speci men Type: BLOOD SPECIMENOrdering Facility: [facility] Address: [address] [place] [address] Performed By: #### 5 8410-2 ####[facility]ORYCLIA [id number] [address] WBC (Bld) [#/Vol] 10.19 10*3/uL Normal 3.70-11.00 [facility] Comment on above: Order Comment: Speci men Type: BLOOD SPECIMENOrdering Facility: [facility] Address: [address] [place] [address] Performed By: #### 5 8410-2 ####[facility]ORYCLIA [id number] [address] FERRITIN BLDon 06-18-2021 Ferritin [Mass/Vol] 600.9 ng/mL High 30.3-565.7 [facility] Comment on above: Order Comment: Speci men Type: BLOOD SPECIMENOrdering Facility: [facility] Address: [address] [place] [address] Performed By: #### S ERFOL, IRON, FERR ####[facility]ORYCLIA [id number] [address] FOLATE SERUMon 06-18-2021 Folate [Mass/Vol] 14.3 ng/mL Normal >4.7 [facility] Comment on above: Order Comment: Speci men Type: BLOOD SPECIMENOrdering Facility: [facility] Address: [address] [place] [address] Performed By: #### S ERFOL, IRON, FERR ####[facility]ORYCLIA [id number] [address] Gas and Carbon monoxide pane l (BldV)on 06-18-2021 Base excess Calc (BldV) [Moles/Vol] 0.5 mmol/L Normal 0-2 [facility] Comment on above: Order Comment: Speci men Type: VENOUS BLOOD SPECIMENOrdering Facility: [facility] Address: [address] [place] [address] Performed By: #### 2 4344-4 ####[facility]ORYCLIA [id number] [address] Body temperature 97.34 [degF] Normal [facility] Comment on above: Order Comment: Speci men Type: VENOUS BLOOD SPECIMENOrdering Facility: [facility] Address: [address] [place] [address] Performed By: #### 2 4344-4 ####[facility]ATORYCLIA [id number] [address] CALCIUM IONIZED, PH CORRECTED 1.26 mmol/L Normal 1.08-1.30 [facility] Comment on above: Order Comment: Speci men Type: VENOUS BLOOD SPECIMENOrdering Facility: [facility] Address: [address] [place] [address] Performed By: #### 2 4344-4 ####[facility]ATORYCLIA [id number] [address] Calcium.ionized (BldV) [Mass/Vol] 1.25 mmol/L Normal 1.08-1.30 [facility] Comment on above: Order Comment: Speci men Type: VENOUS BLOOD SPECIMENOrdering Facility: [facility] Address: [address] [place] [address] Performed By: #### 2 4344-4 ####[facility]ATORYCLIA [id number] [address] [facility] Carboxyhemoglobin (BldV) [Mass fraction] 1.5 % Normal 0.0-2.0 [facility] Comment on above: Order Comment: Speci men Type: VENOUS BLOOD SPECIMENOrdering Facility: [facility] Address: [address] [place] [address] Result Comment: Carb oxyhemoglobin Reference Range for Smokers: 2.0-8.0% Performed By: #### 2 4344-4 ####[facility]ORATORYCLIA [id number] [place] [address] [place] CO2 (BldV) [Partial pressure] 38 mm[Hg] Low 42-55 [facility] Comment on above: Order Comment: Speci men Type: VENOUS BLOOD SPECIMENOrdering Facility: [facility] Address: [address] [place] [address] Performed By: #### 2 4344-4 ####[facility] LABORATORYCLIA [id number] [place] [address] [place] CO2 [Moles/Vol] 22.9 mmol/L Low 25-29 [facility] Comment on above: Order Comment: Speci men Type: VENOUS BLOOD SPECIMENOrdering Facility: [facility] Address: [address] [place] [address] Performed By: #### 2 4344-4 ####[facility]ATORYCLIA [id number] [address] [place] CO2 adjusted to patient's actual temperature (BldV) [Partial pressure] 37 mmHg Low 42-55 [facility] Comment on above: Order Comment: Speci men Type: VENOUS BLOOD SPECIMENOrdering Facility: [facility] Address: [address] [place] [address] Performed By: #### 2 4344-4 ####[facility]ATORYCLIA [id number] [place] [address] [place] Glucose [Mass/Vol] 103 mg/dL Normal 60-105 [facility] Comment on above: Order Comment: Speci men Type: VENOUS BLOOD SPECIMENOrdering Facility: [facility] Address: [address] [place] [address] Performed By: #### 2 4344-4 ####[facility]ORATORYCLIA [id number] [place] [address] [place] HCO3 (Bld) [Moles/Vol] 24.4 mmol/L Normal 24-28 [facility] Comment on above: Order Comment: Speci men Type: VENOUS BLOOD SPECIMENOrdering Facility: [facility] Address: [address] [place] [address] Performed By: #### 2 4344-4 ####[facility]ATORYCLIA [id number] [address] [place] Hematocrit (Bld) [Volume fraction] 28.7 % Low 39.0-51.0 [facility] Comment on above: Order Comment: Speci men Type: VENOUS BLOOD SPECIMENOrdering Facility: [facility] Address: [address] [place] [address] Performed By: #### 2 4344-4 ####[facility]ATORYCLIA [id number] [address] [place] Hemoglobin (Bld) [Mass/Vol] 9.3 g/dL Low 13.0-17.0 [facility] Comment on above: Order Comment: Speci men Type: VENOUS BLOOD SPECIMENOrdering Facility: [facility] Address: [address] [place] [address] Performed By: #### 2 4344-4 ####[facility]ATORYCLIA [id number] [address] Methemoglobin (Bld) [Mass fraction] % Normal 0.0-1.5 [facility] Comment on above: Order Comment: Speci men Type: VENOUS BLOOD SPECIMENOrdering Facility: [facility] Address: [address] [place] [address] Performed By: #### 2 4344-4 ####[facility]ORATORYCLIA [id number] [address] [place] O2 THERAPY Ventilator Normal [facility] Comment on above: Order Comment: Speci men Type: VENOUS BLOOD SPECIMENOrdering Facility: [facility] Address: [address] [place] [address] Performed By: #### 2 4344-4 ####[facility]ORYCLIA [id number] [address] Oxygen (BldV) [Partial pressure] 37 mm[Hg] Normal 35-45 [facility] Comment on above: Order Comment: Speci men Type: VENOUS BLOOD SPECIMENOrdering Facility: [facility] Address: [address] [address] Performed By: #### 2 4344-4 ####[facility]ATORYCLIA [id number] [address] [facility] Oxygen adjusted to patient's actual temperature (BldV) [Partial pressure] 35.1 mmHg Normal 35-45 [facility] Comment on above: Order Comment: Speci men Type: VENOUS BLOOD SPECIMENOrdering Facility: [facility] Address: [address] [place] [address] Performed By: #### 2 4344-4 ####[facility]ORATORYCLIA [id number] [address] Oxygen saturation in Blood 67.1 % Normal 60-85 [facility] Comment on above: Order Comment: Speci men Type: VENOUS BLOOD SPECIMENOrdering Facility: [facility] Address: [address] [place] [address] Performed By: #### 2 4344-4 ####[facility]ATORYCLIA [id number] [address] Oxyhemoglobin (BldV) [Mass fraction] 66 % Normal 60-85 [facility] Comment on above: Order Comment: Speci men Type: VENOUS BLOOD SPECIMENOrdering Facility: [facility] Address: [address] [place] [address] Performed By: #### 2 4344-4 ####[facility]ATORYCLIA [id number] [address] [place] pH (BldV) 7.42 [pH] Normal 7.32-7.42 [facility] Comment on above: Order Comment: Speci men Type: VENOUS BLOOD SPECIMENOrdering Facility: [facility] Address: [address] [place] [address] Performed By: #### 2 4344-4 ####[facility]ORATORYCLIA [id number] [address] [place] pH adjusted to patient's actual temperature (BldV) 7.43 High 7.32-7.42 [facility] Comment on above: Order Comment: Speci men Type: VENOUS BLOOD SPECIMENOrdering Facility: [facility] Address: [address] [place] [address] Performed By: #### 2 4344-4 ####[facility]ATORYCLIA [id number] [address] [place] Potassium [Moles/Vol] 4.0 mmol/L Normal 3.5-5.0 [facility] Comment on above: Order Comment: Speci men Type: VENOUS BLOOD SPECIMENOrdering Facility: [facility] Address: [address] [place] [address] Performed By: #### 2 4344-4 ####[facility]ATORYCLIA [id number] [address] [place] [facility] Sodium [Moles/Vol] 146 mmol/L High 136-144 [facility] Comment on above: Order Comment: Speci men Type: VENOUS BLOOD SPECIMENOrdering Facility: [facility] Address: [address] [place] [address] Performed By: #### 2 4344-4 ####[facility]ATORYCLIA [id number] [address] [place] HEMOGLOBIN (HGB)on Hemoglobin (Bld) [Mass/Vol] 9.2 g/dL Low 13.0-17.0 [facility] Comment on above: Order Comment: Speci men Type: BLOOD SPECIMENOrdering Facility: [facility] Address: [address] [place] [address] Performed By: #### H GB ####[facility]ATORYCLIA [id number] [address] [place] IRON + TIBCon 06-18-2021 Iron [Mass/Vol] 27 ug/dL Low 41-186 [facility] Comment on above: Order Comment: Speci men Type: BLOOD SPECIMENOrdering Facility: [facility] Address: [address] [place] [address] Performed By: #### S ERFOL, IRON, FERR ####[facility]ATORYCLIA [id number] [address] Iron binding capacity [Mass/Vol] 141 ug/dL Low 232-386 [facility] Comment on above: Order Comment: Speci men Type: BLOOD SPECIMENOrdering Facility: [facility] Address: [address] [place] [address] Performed By: #### S ERFOL, IRON, FERR ####[facility]ATORYCLIA [id number] [address] Iron saturation [Mass fraction] 19 % Normal 15-57 [facility] Comment on above: Order Comment: Speci men Type: BLOOD SPECIMENOrdering Facility: [facility] Address: [address] [place] [address] Performed By: #### S ERFOL, IRON, FERR ####[facility]ATORYCLIA [id number] [address] Magnesium SerPl-mCncon 06-18 Magnesium [Mass/Vol] 2.5 mg/dL High 1.7-2.3 [facility] Comment on above: Order Comment: Speci men Type: BLOOD SPECIMENOrdering Facility: [facility] Address: [address] [place] [address] Performed By: #### 2 4321-2, , 2776-05 ####[facility]ATORYCLIA [id number] [address] [place] NURSING PROGon 06-18-2021 NURSING PROG Normal [facility] Phosphate SerPl-mCncon 06-18 Phosphate [Mass/Vol] 3.0 mg/dL Normal 2.7-4.8 [facility] Comment on above: Order Comment: Speci men Type: BLOOD SPECIMENOrdering Facility: [facility] Address: [address] [place] [address] Performed By: #### 2 4321-2, , 2776-05 ####[facility]ATORYCLIA [id number] [address] [place] THERAPY NTon 06-18-2021 THERAPY NT Normal [facility] aPTT PPPon 06-18-2021 aPTT Coag (PPP) [Time] 43.0 s High 23.0-32.4 [facility] Comment on above: Order Comment: Speci men Type: BLOOD SPECIMENOrdering Facility: [facility] Address: [address] [place] [address] Performed By: #### 1 4979-9 ####[facility]ATORYCLIA [id number] [address] aPTT Coag (PPP) [Time] 60.6 s High 23.0-32.4 [facility] Comment on above: Order Comment: Speci men Type: BLOOD SPECIMENOrdering Facility: [facility] Address: [address] [place] [address] Performed By: #### 1 4979-9 ####[facility]ITALCLIA [id number] [address] aPTT Coag (PPP) [Time] 46.4 s High 23.0-32.4 [facility] Comment on above: Order Comment: Speci men Type: BLOOD SPECIMENOrdering Facility: [facility] Address: [address] [place] [address] Performed By: #### 1 4979-9 ####[facility]ATORYCLIA [id number] [address] [facility] Basic metabolic 2000 panelon 06-17-2021 Anion gap [Moles/Vol] 7 mmol/L Low 9-18 [facility] Comment on above: Order Comment: Speci men Type: BLOOD SPECIMENOrdering Facility: [facility] Address: [address] [place] [address] Performed By: #### 2 951-2, 90101-1, 2777-1, 55361-9 ####[facility]ATORYCLIA [id number] [place] [address] [place] Calcium [Mass/Vol] 8.1 mg/dL Low 8.5-10.2 [facility] Comment on above: Order Comment: Speci men Type: BLOOD SPECIMENOrdering Facility: [facility] Address: [address] [place] [address] Performed By: #### 2 951-2, 48924-0, 2776-1, 48367-2 ####[facility]ATORYCLIA [id number] [place] [address] [place] Chloride [Moles/Vol] 113 mmol/L High 97-105 [facility] Comment on above: Order Comment: Speci men Type: BLOOD SPECIMENOrdering Facility: [facility] Address: [address] [place] [address] Performed By: #### 2 951-2, , 2776-05, 97412-4 ####[facility]ATORYCLIA [id number] [place] [address] [place] CO2 [Moles/Vol] 25 mmol/L Normal 22-30 [facility] Comment on above: Order Comment: Speci men Type: BLOOD SPECIMENOrdering Facility: [facility] Address: [address] [place] [address] Performed By: #### 2 951-2, , 2776-05, 76773-6 ####[facility]ATORYCLIA [id number] [place] [address] [place] Creatinine [Mass/Vol] 0.70 mg/dL Low 0.73-1.22 [facility] Comment on above: Order Comment: Speci men Type: BLOOD SPECIMENOrdering Facility: [facility] Address: [address] [place] [address] Performed By: #### 2 951-2, , 2776-05, 24233-8 ####[facility]ATORYCLIA [id number] [place] [address] [place] GFR/1.73 sq M.predicted MDRD (S/P/Bld) [Vol rate/Area] mL/min/{1.73_m2} Normal [facility] Comment on above: Order Comment: Shira feldman Type: BLOOD SPECIMENOrdering Facility: [facility] Address: [address] [place], [place] [address] Result Comment: >60e GFR (Estimated GFR) Units [...] actual GFR. Performed By: #### 2 951-2, 73438-7, 2777-1, 56166-5 ####[facility]ATORYCLIA [id number] [place] [address] [place] Glucose [Mass/Vol] 122 mg/dL High 74-99 [facility] Comment on above: Order Comment: Shira feldman Type: BLOOD SPECIMENOrdering Facility: [facility] Address: [address] [place], [place] [address] Result Comment: The [place] [employer] [...] 2016.39(Suppl 1). Performed By: #### 2 951-2, 29588-7, 2777-1, 75679-6 ####[facility]ATORYCLIA [id number] [address] [place] [facility] Potassium [Moles/Vol] 3.5 mmol/L Low 3.7-5.1 [facility] Comment on above: Order Comment: Speci men Type: BLOOD SPECIMENOrdering Facility: [facility] Address: [address] [place] [address] Performed By: #### 2 951-2, 67945-2, 2777-1, 17729-2 ####[facility]ATORYCLIA [id number] [address] [place] Urea nitrogen [Mass/Vol] 27 mg/dL High 9- [facility] Comment on above: Order Comment: Speci men Type: BLOOD SPECIMENOrdering Facility: [facility] Address: [address] [place] [address] Performed By: #### 2 951-2, 89657-5, 2777-1, 67033-5 ####[facility]ITALCLIA [id number] [address] [facility] CASE MANAGEMon 06-17-2021 CASE MANAGEM Normal [facility] CBC panel Auto (Bld)on 06-17 Erythrocyte distribution width (RBC) [Ratio] 15.9 % High 11.5-15.0 [facility] Comment on above: Order Comment: Speci men Type: BLOOD SPECIMENOrdering Facility: [facility] Address: [address] [place] [address] Performed By: #### 5 8410-2 ####[facility]ATORYCLIA [id number] [address] Hematocrit (Bld) [Volume fraction] 28.9 % Low 39.0-51.0 [facility] Comment on above: Order Comment: Speci men Type: BLOOD SPECIMENOrdering Facility: [facility] Address: [address] [place] [address] Performed By: #### 5 8410-2 ####[facility]ATORYCLIA [id number] [address] Hemoglobin (Bld) [Mass/Vol] 8.8 g/dL Low 13.0-17.0 [facility] Comment on above: Order Comment: Speci men Type: BLOOD SPECIMENOrdering Facility: [facility] Address: [address] [place] [address] Performed By: #### 5 8410-2 ####[facility]ATORYCLIA [id number] [address] MCH (RBC) [Entitic mass] 28.4 pg Normal 26.0-34.0 [facility] Comment on above: Order Comment: Speci men Type: BLOOD SPECIMENOrdering Facility: [facility] Address: [address] [place] [address] Performed By: #### 5 8410-2 ####[facility]ATORYCLIA [id number] [address] MCHC (RBC) [Mass/Vol] 30.4 g/dL Low 30.5-36.0 [facility] Comment on above: Order Comment: Speci men Type: BLOOD SPECIMENOrdering Facility: [facility] Address: [address] [place] [address] Performed By: #### 5 8410-2 ####[facility]ATORYCLIA [id number] [address] MCV (RBC) [Entitic vol] 93.2 fL Normal 80.0-100.0 [facility] Comment on above: Order Comment: Speci men Type: BLOOD SPECIMENOrdering Facility: [facility] Address: [address] [place] [address] Performed By: #### 5 8410-2 ####[facility]ORYCLIA [id number] [address] Nucleated RBC (Bld) [#/Vol] 10*3/uL Normal <0.01 [facility] Comment on above: Order Comment: Speci men Type: BLOOD SPECIMENOrdering Facility: [facility] Address: [address] Performed By: #### 5 8410-2 ####[facility]ATORYCLIA [id number] [address] Platelet mean volume (Bld) [Entitic vol] 11.9 fL Normal 9.0-12.7 [facility] Comment on above: Order Comment: Speci men Type: BLOOD SPECIMENOrdering Facility: [facility] Address: [address] [place] [address] Performed By: #### 5 8410-2 ####[facility]ORYCLIA [id number] [address] [facility] Platelets (Bld) [#/Vol] 257 10*3/uL Normal 150-400 [facility] Comment on above: Order Comment: Speci men Type: BLOOD SPECIMENOrdering Facility: [facility] Address: [address] [place] [address] Performed By: #### 5 8410-2 ####[facility]ORYCLIA [id number] [address] [place] RBC (Bld) [#/Vol] 3.10 10*6/uL Low 4.20-6.00 [facility] Comment on above: Order Comment: Speci men Type: BLOOD SPECIMENOrdering Facility: [facility] Address: [address] [place] [address] Performed By: #### 5 8410-2 ####[facility]ATORYCLIA [id number] [address] [place] WBC (Bld) [#/Vol] 10.54 10*3/uL Normal 3.70-11.00 [facility] Comment on above: Order Comment: Speci men Type: BLOOD SPECIMENOrdering Facility: [facility] Address: [address] [place] [address] Performed By: #### 5 8410-2 ####[facility]ATORYCLIA [id number] [address] HEMOGLOBIN (HGB)on Hemoglobin (Bld) [Mass/Vol] 8.8 g/dL Low 13.0-17.0 [facility] Comment on above: Order Comment: Speci men Type: BLOOD SPECIMENOrdering Facility: [facility] Address: [address] [place] [address] Performed By: #### H GB ####[facility]ATORYCLIA [id number] [address] [facility] Magnesium SerPl-mCncon 06-17 Magnesium [Mass/Vol] 2.5 mg/dL High 1.7-2.3 [facility] Comment on above: Order Comment: Speci men Type: BLOOD SPECIMENOrdering Facility: [facility] Address: [address] [place] [address] Performed By: #### 2 951-2, 00526-2, 2777-1, 51102-4 ####[facility]ORYCLIA [id number] [address] NURSING PROGon 06-17-2021 NURSING PROG Normal [facility] NURSING PROG Normal [facility] NURSING PROG Normal [facility] Phosphate SerPl-mCncon 06-17 Phosphate [Mass/Vol] 1.9 mg/dL Low 2.7-4.8 [facility] Comment on above: Order Comment: Speci men Type: BLOOD SPECIMENOrdering Facility: [facility] Address: [address] [place] [address] Performed By: #### 2 951-2, 33283-5, 2777-1, 00334-0 ####[facility]ATORYCLIA [id number] [address] [facility] Sodium SerPl-sCncon 06-17-19 22 Sodium [Moles/Vol] 144 mmol/L Normal 136-144 [facility] Comment on above: Order Comment: Speci men Type: BLOOD SPECIMENOrdering Facility: [facility] Address: [address] [place] [address] Performed By: #### 2 951-2 ####[facility]ORYCLIA [id number] [address] [place] [facility] Sodium [Moles/Vol] 145 mmol/L High 136-144 [facility] Comment on above: Order Comment: Speci men Type: BLOOD SPECIMENOrdering Facility: [facility] Address: [address] [place] [address] Performed By: #### 2 951-2, 89861-5, 2777-1, 97350-0 ####[facility]ATORYCLIA [id number] [place] [address] [place] aPTT PPPon 06-17-2021 aPTT Coag (PPP) [Time] 55.8 s High 23.0-32.4 [facility] Comment on above: Order Comment: Speci men Type: BLOOD SPECIMENOrdering Facility: [facility] Address: [address] [place] [address] Performed By: #### 1 4979-9 ####[facility]ATORYCLIA [id number] [address] [place] ARTERIAL BLOOD GASESon 06-16 Base excess Calc (Bld) [Moles/Vol] 3 mmol/L High 0-2 [facility] Comment on above: Order Comment: Speci men Type: ARTERIAL BLOOD SPECIMENOrdering Facility: [facility] Address: [address] [place] [address] Performed By: #### A LLBG ####[facility]ATORYCLIA [id number] [address] [place] Body temperature 99.14 [degF] Normal [facility] Comment on above: Order Comment: Speci men Type: ARTERIAL BLOOD SPECIMENOrdering Facility: [facility] Address: [address] [place] [address] Performed By: #### A LLBG ####[facility]ATORYCLIA [id number] [address] [place] CALCIUM IONIZED, PH CORRECTED 1.21 mmol/L Normal 1.08-1.30 [facility] Comment on above: Order Comment: Speci men Type: ARTERIAL BLOOD SPECIMENOrdering Facility: [facility] Address: [address] [place] [address] Performed By: #### A LLBG ####[facility]ATORYCLIA [id number] [place] [address] [place] Calcium.ionized (BldV) [Mass/Vol] 1.17 mmol/L Normal 1.08-1.30 [facility] Comment on above: Order Comment: Speci men Type: ARTERIAL BLOOD SPECIMENOrdering Facility: [facility] Address: [address] [place] [address] Performed By: #### A LLBG ####[facility]ATORYCLIA [id number] [address] [place] Carboxyhemoglobin (BldA) [Mass fraction] 1.4 % Normal 0.0-2.0 [facility] Comment on above: Order Comment: Speci men Type: ARTERIAL BLOOD SPECIMENOrdering Facility: [facility] Address: [address] [place] [address] Result Comment: Carb oxyhemoglobin Reference Range for Smokers: 2.0-8.0% Performed By: #### A LLBG ####[facility]ATORYCLIA [id number] [place] [address] [place] CO2 (Bld) [Partial pressure] 38 mm Hg Normal 36-46 [facility] Comment on above: Order Comment: Speci men Type: ARTERIAL BLOOD SPECIMENOrdering Facility: [facility] Address: [address] [place] [address] Performed By: #### A LLBG ####[facility]ATORYCLIA [id number] [place] [address] [place] CO2 [Moles/Vol] 24.5 mmol/L Normal 22-28 [facility] Comment on above: Order Comment: Speci men Type: ARTERIAL BLOOD SPECIMENOrdering Facility: [facility] Address: [address] [place] [address] Performed By: #### A LLBG ####[facility]ORYCLIA [id number] [address] CO2 adjusted to patient's actual temperature (Bld) [Partial pressure] 38 mmHg Normal 36-46 [facility] Comment on above: Order Comment: Speci men Type: ARTERIAL BLOOD SPECIMENOrdering Facility: [facility] Address: [address] [place] [address] Performed By: #### A LLBG ####[facility]ORYCLIA [id number] [address] [place] Glucose [Mass/Vol] 147 mg/dL High 60-105 [facility] Comment on above: Order Comment: Speci men Type: ARTERIAL BLOOD SPECIMENOrdering Facility: [facility] Address: [address] [place] [address] Performed By: #### A LLBG ####[facility]ORYCLIA [id number] [address] HCO3 (Bld) [Moles/Vol] 27 mmol/L High 22-26 [facility] Comment on above: Order Comment: Speci men Type: ARTERIAL BLOOD SPECIMENOrdering Facility: [facility] Address: [address] [place] [address] Performed By: #### A LLBG ####[facility]ORYCLIA [id number] [address] [place] Hematocrit (Bld) [Volume fraction] 31.8 % Low 39.0-51.0 [facility] Comment on above: Order Comment: Speci men Type: ARTERIAL BLOOD SPECIMENOrdering Facility: [facility] Address: [address] [place] [address] Performed By: #### A LLBG ####[facility]ORYCLIA [id number] [address] [place] Hemoglobin (Bld) [Mass/Vol] 10.3 g/dL Low 13.0-17.0 [facility] Comment on above: Order Comment: Speci men Type: ARTERIAL BLOOD SPECIMENOrdering Facility: [facility] Address: [address] [address] Performed By: #### A LLBG ####[facility]ATORYCLIA [id number] [address] Methemoglobin (Bld) [Mass fraction] 1.0 % Normal 0.0-1.5 [facility] Comment on above: Order Comment: Speci men Type: ARTERIAL BLOOD SPECIMENOrdering Facility: [facility] Address: [address] [place] [address] Performed By: #### A LLBG ####[facility]ATORYCLIA [id number] [address] O2 THERAPY Ventilator Normal [facility] Comment on above: Order Comment: Speci men Type: ARTERIAL BLOOD SPECIMENOrdering Facility: [facility] Address: [address] [place] [address] Performed By: #### A LLBG ####[facility]ORYCLIA [id number] [address] Oxygen (Bld) [Partial pressure] 78 mm Hg Low 85-95 [facility] Comment on above: Order Comment: Speci men Type: ARTERIAL BLOOD SPECIMENOrdering Facility: [facility] Address: [address] [place] [address] Performed By: #### A LLBG ####[facility]ATORYCLIA [id number] [address] Oxygen adjusted to patient's actual temperature (Bld) [Partial pressure] 79.7 mmHg Low 85-95 [facility] Comment on above: Order Comment: Speci men Type: ARTERIAL BLOOD SPECIMENOrdering Facility: [facility] Address: [address] [address] Performed By: #### A LLBG ####[facility]ORYCLIA [id number] [address] [place] OXYGEN SATURATION, ARTERIAL 96 % Normal 95-98 [facility] Comment on above: Order Comment: Speci men Type: ARTERIAL BLOOD SPECIMENOrdering Facility: [facility] Address: [address] [place] [address] Performed By: #### A LLBG ####[facility]ORYCLIA [id number] [address] [place] Oxyhemoglobin (BldA) [Mass fraction] 94 % Low 95- [facility] Comment on above: Order Comment: Speci men Type: ARTERIAL BLOOD SPECIMENOrdering Facility: [facility] Address: [address] [place] [address] Performed By: #### A LLBG ####[facility]ATORYCLIA [id number] [place] [address] [place] pH (Bld) 7.47 [pH] High 7.35-7.45 [facility] Comment on above: Order Comment: Speci men Type: ARTERIAL BLOOD SPECIMENOrdering Facility: [facility] Address: [address] [place] [address] Performed By: #### A LLBG ####[facility]ATORYCLIA [id number] [address] [place] [facility] pH adjusted to patient's actual temperature (Bld) 7.46 High 7.35-7.45 [facility] Comment on above: Order Comment: Speci men Type: ARTERIAL BLOOD SPECIMENOrdering Facility: [facility] Address: [address] [place] [address] Performed By: #### A LLBG ####[facility]ATORYCLIA [id number] [place] [address] [place] Potassium [Moles/Vol] 3.7 mmol/L Normal 3.5-5.0 [facility] Comment on above: Order Comment: Speci men Type: ARTERIAL BLOOD SPECIMENOrdering Facility: [facility] Address: [address] [place] [address] Performed By: #### A LLBG ####[facility]ORATORYCLIA [id number] [address] [place] Sodium [Moles/Vol] 155 mmol/L High 136-144 [facility] Comment on above: Order Comment: Speci men Type: ARTERIAL BLOOD SPECIMENOrdering Facility: [facility] Address: [address] [place] [address] Performed By: #### A LLBG ####[facility]ORATORYCLIA [id number] [address] [place] Bacteria Spec Resp Culton Bacteria identified Respiratory culture Nom (Unsp spec) CULTURE, RESPIRATORY: Rare Normal respiratory chris present ORGANISM ID: 1 [id number] Yeast, not cryptococcus neoformans GRAM STAIN: No organisms seen Few Polymorphonuclear leukocytes Few Epithelial cells Abnormal [facility] Comment on above: Performed By: #### 3 2355-0 ####[facility]ATORYCLIA [id number] [place] [address] [place] Basic metabolic 2000 panelon 06-16-2021 Anion gap [Moles/Vol] 9 mmol/L Normal 9-18 [facility] Comment on above: Order Comment: Speci men Type: BLOOD SPECIMENOrdering Facility: [facility] Address: [address] [place] [address] Performed By: #### 2 4321-2 ####[facility]ATORYCLIA [id number] [place] [address] [place] Calcium [Mass/Vol] 8.4 mg/dL Low 8.5-10.2 [facility] Comment on above: Order Comment: Speci men Type: BLOOD SPECIMENOrdering Facility: [facility] Address: [address] [place] [address] Performed By: #### 2 4321-2 ####[facility]ATORYCLIA [id number] [place] [address] [place] Chloride [Moles/Vol] 120 mmol/L High 97-105 [facility] Comment on above: Order Comment: Speci men Type: BLOOD SPECIMENOrdering Facility: [facility] Address: [address] [place] [address] Performed By: #### 2 4321-2 ####[facility]ORYCLIA [id number] [address] STATES [place] [facility] CO2 [Moles/Vol] 27 mmol/L Normal 22-30 [facility] Comment on above: Order Comment: Speci men Type: BLOOD SPECIMENOrdering Facility: [facility] Address: [address] [place] [address] Performed By: #### 2 4321-2 ####[facility]ORYCLIA [id number] [address] [place] Creatinine [Mass/Vol] 0.75 mg/dL Normal 0.73-1.22 [facility] Comment on above: Order Comment: Speci men Type: BLOOD SPECIMENOrdering Facility: [facility] Address: [address] [place] [address] Performed By: #### 2 4321-2 ####[facility] [id number] [address] [place] GFR/1.73 sq M.predicted MDRD (S/P/Bld) [Vol rate/Area] mL/min/{1.73_m2} Normal [facility] Comment on above: Order Comment: Speci men Type: BLOOD SPECIMENOrdering Facility: [facility] Address: [address] [place] [address] Result Comment: >60e GFR (Estimated GFR) Units [...] actual GFR. Performed By: #### 2 4321-2 ####[facility]ORYCLIA [id number] [address] [place] Glucose [Mass/Vol] 160 mg/dL High 74-99 [facility] Comment on above: Order Comment: Speci men Type: BLOOD SPECIMENOrdering Facility: [facility] Address: [address] [place] [address] Result Comment: The [place] [employer] [...] 2016.39(Suppl 1). Performed By: #### 2 4321-2 ####[facility]ORYCLIA [id number] [place] [address] [place] Potassium [Moles/Vol] 3.1 mmol/L Low 3.7-5.1 [facility] Comment on above: Order Comment: Shira men Type: BLOOD SPECIMENOrdering Facility: [facility] Address: [address] [place] [address] Performed By: #### 2 4321-2 ####[facility]ORYCLIA [id number] [place] [address] [place] Sodium [Moles/Vol] 156 mmol/L High 136-144 [facility] Comment on above: Order Comment: Speci men Type: BLOOD SPECIMENOrdering Facility: [facility] Address: [address] [place] [address] Performed By: #### 2 4321-2 ####[facility]ORYCLIA [id number] [place] [address] [place] Urea nitrogen [Mass/Vol] 33 mg/dL High 9-24 [facility] Comment on above: Order Comment: Speci men Type: BLOOD SPECIMENOrdering Facility: [facility] Address: [address] [place] [address] Performed By: #### 2 4321-2 ####[facility]ORYCLIA [id number] [address] CASE MANAGEMon 06-16-2021 CASE MANAGEM Normal [facility] CBC panel Auto (Bld)on 06-16 Erythrocyte distribution width (RBC) [Ratio] 15.9 % High 11.5-15.0 [facility] Comment on above: Order Comment: Speci men Type: BLOOD SPECIMENOrdering Facility: [facility] Address: [address] [place] [address] Performed By: #### 5 8410-2 ####[facility]ORYCLIA [id number] [address] [place] [facility] Hematocrit (Bld) [Volume fraction] 34.6 % Low 39.0-51.0 [facility] Comment on above: Order Comment: Speci men Type: BLOOD SPECIMENOrdering Facility: [facility] Address: [address] [place] [address] Performed By: #### 5 8410-2 ####[facility]ORYCLIA [id number] [address] Hemoglobin (Bld) [Mass/Vol] 10.2 g/dL Low 13.0-17.0 [facility] Comment on above: Order Comment: Speci men Type: BLOOD SPECIMENOrdering Facility: [facility] Address: [address] [place] [address] Performed By: #### 5 8410-2 ####[facility]ORYCLIA [id number] [address] MCH (RBC) [Entitic mass] 28.5 pg Normal 26.0-34.0 [facility] Comment on above: Order Comment: Speci men Type: BLOOD SPECIMENOrdering Facility: [facility] Address: [address] [place] [address] Performed By: #### 5 8410-2 ####[facility]ORYCLIA [id number] [address] [place] [facility] MCHC (RBC) [Mass/Vol] 29.5 g/dL Low 30.5-36.0 [facility] Comment on above: Order Comment: Speci men Type: BLOOD SPECIMENOrdering Facility: [facility] Address: [address] [place] [address] Performed By: #### 5 8410-2 ####[facility]ORYCLIA [id number] [address] [place] [facility] MCV (RBC) [Entitic vol] 96.6 fL Normal 80.0-100.0 [facility] Comment on above: Order Comment: Speci men Type: BLOOD SPECIMENOrdering Facility: [facility] Address: [address] [place] [address] Performed By: #### 5 8410-2 ####[facility]ORYCLIA [id number] [address] Nucleated RBC (Bld) [#/Vol] 10*3/uL Normal <0.01 [facility] Comment on above: Order Comment: Speci men Type: BLOOD SPECIMENOrdering Facility: [facility] Address: [address] [place] [address] Performed By: #### 5 8410-2 ####[facility]ORYCLIA [id number] [address] [place] Platelet mean volume (Bld) [Entitic vol] 11.9 fL Normal 9.0-12.7 [facility] Comment on above: Order Comment: Speci men Type: BLOOD SPECIMENOrdering Facility: [facility] Address: [address] [place] [address] Performed By: #### 5 8410-2 ####[facility]ORYCLIA [id number] [address] [place] Platelets (Bld) [#/Vol] 269 10*3/uL Normal 150-400 [facility] Comment on above: Order Comment: Speci men Type: BLOOD SPECIMENOrdering Facility: [facility] Address: [address] [place] [address] Performed By: #### 5 8410-2 ####[facility]ORYCLIA [id number] [address] [place] [facility] RBC (Bld) [#/Vol] 3.58 10*6/uL Low 4.20-6.00 [facility] Comment on above: Order Comment: Speci men Type: BLOOD SPECIMENOrdering Facility: [facility] Address: [address] [place] [address] Performed By: #### 5 8410-2 ####[facility]ORYCLIA [id number] [address] WBC (Bld) [#/Vol] 13.11 10*3/uL High 3.70-11.00 [facility] Comment on above: Order Comment: Speci men Type: BLOOD SPECIMENOrdering Facility: [facility] Address: [address] [place] [address] Performed By: #### 5 8410-2 ####[facility]ORYCLIA [id number] [address] [place] CONSULTon 06-16-2021 CONSULT Normal [facility] CONSULT PROGon 06-16-2021 CONSULT PROG Normal [facility] CT BRAIN WO IVCONon 06-16-[address] BRAIN WO IVCON Normal [facility] HEMOGLOBIN (HGB)on 2 Hemoglobin (Bld) [Mass/Vol] 8.9 g/dL Low 13.0-17.0 [facility] Comment on above: Order Comment: Speci men Type: BLOOD SPECIMENOrdering Facility: [facility] Address: [address] [place] [address] Performed By: #### H GB ####[facility]ORYCLIA [id number] [address] OF [facility] Hemoglobin (Bld) [Mass/Vol] 9.6 g/dL Low 13.0-17.0 [facility] Comment on above: Order Comment: Speci men Type: BLOOD SPECIMENOrdering Facility: [facility] Address: [address] [place] [address] Performed By: #### H GB ####[facility]ORYCLIA [id number] [address] [place] Magnesium SerPl-mCncon 06-16 Magnesium [Mass/Vol] 2.7 mg/dL High 1.7-2.3 [facility] Comment on above: Order Comment: Speci men Type: BLOOD SPECIMENOrdering Facility: [facility] Address: [address] [place] [address] Performed By: #### 1 9123-9 ####[facility]ORYCLIA [id number] [address] [place] NURSING PROGon 06-16-2021 NURSING PROG Normal [facility] NUTRITIONon 06-16-2021 NUTRITION Normal [facility] Phosphate SerPl-mCncon 06-16 Phosphate [Mass/Vol] 1.4 mg/dL Low 2.7-4.8 [facility] Comment on above: Order Comment: Speci men Type: BLOOD SPECIMENOrdering Facility: [facility] Address: [address] [place] [address] Performed By: #### 2 777-1 ####[facility]ORYCLIA [id number] [address] [place] STAPH AUREUS PCRon 2 S. aureus and MRSA panel MEGAN+probe (Nose) Normal Negative [facility] Comment on above: Order Comment: Speci men Type: SWAB OF INTERNAL NOSEOrdering Facility: [facility] Address: [address] [place] [address] Result Comment: Nega tive for Staphylococcus aureus by PCR.Negative for MRSA by PCR Performed By: #### S APCR ####[facility]ORYCLIA [id number] [address] [place] Sodium SerPl-sCncon 06-16-19 Sodium [Moles/Vol] 150 mmol/L High 136-144 [facility] Comment on above: Order Comment: Speci men Type: BLOOD SPECIMENOrdering Facility: [facility] Address: [address] [place] [address] Performed By: #### 2 951-2 ####[facility]ORYCLIA [id number] [place] [address] [place] Sodium [Moles/Vol] 153 mmol/L High 136-144 [facility] Comment on above: Order Comment: Speci men Type: BLOOD SPECIMENOrdering Facility: [facility] Address: [address] [place] [address] Performed By: #### 2 951-2 ####[facility]ORYCLIA [id number] [address] [place] Sodium [Moles/Vol] 158 mmol/L High 136-144 [facility] Comment on above: Order Comment: Speci men Type: BLOOD SPECIMENOrdering Facility: [facility] Address: [address] [place] [address] Performed By: #### 2 951-2 ####[facility]ORYCLIA [id number] [address] [place] aPTT PPPon 06-16-2021 aPTT Coag (PPP) [Time] 61.8 s High 23.0-32.4 [facility] Comment on above: Order Comment: Speci men Type: BLOOD SPECIMENOrdering Facility: [facility] Address: [address] [place] [address] Performed By: #### 1 4979-9 ####[facility]ORYCLIA [id number] [address] [place] aPTT Coag (PPP) [Time] 57.6 s High 23.0-32.4 [facility] Comment on above: Order Comment: Speci men Type: BLOOD SPECIMENOrdering Facility: [facility] Address: [address] [place] [address] Performed By: #### 1 4979-9 ####[facility]ORYCLIA [id number] [address] [place] ALLIED HEALTHon 06-15-2021 ALLIED HEALTH Normal [facility] ALLIED HEALTH Normal [facility] ALLIED HEALTH Normal [facility] ALLIED HEALTH Normal [facility] ARTERIAL BLOOD GASESon 06-15 Base excess Calc (Bld) [Moles/Vol] 3 mmol/L High 0-2 [facility] Comment on above: Order Comment: Speci men Type: ARTERIAL BLOOD SPECIMENOrdering Facility: [facility] Address: [address] [place] [address] Performed By: #### A LLBG ####[facility]ORYCLIA [id number] [address] [place] Body temperature 99.5 [degF] Normal [facility] Comment on above: Order Comment: Speci men Type: ARTERIAL BLOOD SPECIMENOrdering Facility: [facility] Address: [address] [place] [address] Performed By: #### A LLBG ####[facility]ATORYCLIA [id number] [place] [address] [place] CALCIUM IONIZED, PH CORRECTED 1.34 mmol/L High 1.08-1.30 [facility] Comment on above: Order Comment: Speci men Type: ARTERIAL BLOOD SPECIMENOrdering Facility: [facility] Address: [address] [place] [address] Performed By: #### A LLBG ####[facility]ORYCLIA [id number] [address] [place] Calcium.ionized (BldV) [Mass/Vol] 1.29 mmol/L Normal 1.08-1.30 [facility] Comment on above: Order Comment: Speci men Type: ARTERIAL BLOOD SPECIMENOrdering Facility: [facility] Address: [address] [place] [address] Performed By: #### A LLBG ####[facility]ATORYCLIA [id number] [address] [place] Carboxyhemoglobin (BldA) [Mass fraction] 1.3 % Normal 0.0-2.0 [facility] Comment on above: Order Comment: Speci men Type: ARTERIAL BLOOD SPECIMENOrdering Facility: [facility] Address: [address] [address] Result Comment: Carb oxyhemoglobin Reference Range for Smokers: 2.0-8.0% Performed By: #### A LLBG ####[facility]ORYCLIA [id number] [address] [place] CO2 (Bld) [Partial pressure] 37 mm Hg Normal 36-46 [facility] Comment on above: Order Comment: Speci men Type: ARTERIAL BLOOD SPECIMENOrdering Facility: [facility] Address: [address] [address] Performed By: #### A LLBG ####[facility]ATORYCLIA [id number] [address] [place] CO2 [Moles/Vol] 24.6 mmol/L Normal 22-28 [facility] Comment on above: Order Comment: Speci men Type: ARTERIAL BLOOD SPECIMENOrdering Facility: [facility] Address: [address] [address] Performed By: #### A LLBG ####[facility]ORYCLIA [id number] [address] [place] CO2 adjusted to patient's actual temperature (Bld) [Partial pressure] 38 mmHg Normal 36-46 [facility] Comment on above: Order Comment: Speci men Type: ARTERIAL BLOOD SPECIMENOrdering Facility: [facility] Address: [address] [address] Performed By: #### A LLBG ####[facility]ORYCLIA [id number] [address] [place] FIO2 100 % Normal [facility] Comment on above: Order Comment: Speci men Type: ARTERIAL BLOOD SPECIMENOrdering Facility: [facility] Address: [address] [address] Performed By: #### A LLBG ####[facility]ORYCLIA [id number] [address] [place] Glucose [Mass/Vol] 159 mg/dL High 60-105 [facility] Comment on above: Order Comment: Speci men Type: ARTERIAL BLOOD SPECIMENOrdering Facility: [facility] Address: [address] [place] [address] Performed By: #### A LLBG ####[facility]ORYCLIA [id number] [address] [place] HCO3 (Bld) [Moles/Vol] 27 mmol/L High 22-26 [facility] Comment on above: Order Comment: Speci men Type: ARTERIAL BLOOD SPECIMENOrdering Facility: [facility] Address: [address] [place] [address] Performed By: #### A LLBG ####[facility]ORYCLIA [id number] [address] Hematocrit (Bld) [Volume fraction] 31.0 % Low 39.0-51.0 [facility] Comment on above: Order Comment: Speci men Type: ARTERIAL BLOOD SPECIMENOrdering Facility: [facility] Address: [address] [place] [address] Performed By: #### A LLBG ####[facility]ORYCLIA [id number] [address] [place] Hemoglobin (Bld) [Mass/Vol] 10.0 g/dL Low 13.0-17.0 [facility] Comment on above: Order Comment: Speci men Type: ARTERIAL BLOOD SPECIMENOrdering Facility: [facility] Address: [address] [place] [address] Performed By: #### A LLBG ####[facility]ORYCLIA [id number] [address] [place] Methemoglobin (Bld) [Mass fraction] % Normal 0.0-1.5 [facility] Comment on above: Order Comment: Speci men Type: ARTERIAL BLOOD SPECIMENOrdering Facility: [facility] Address: [facility] [place] [address] Performed By: #### A LLBG ####[facility]ORYCLIA [id number] [address] [place] O2 THERAPY Ventilator Normal [facility] Comment on above: Order Comment: Speci men Type: ARTERIAL BLOOD SPECIMENOrdering Facility: [facility] Address: [address] [place] [address] Performed By: #### A LLBG ####[facility]ORYCLIA [id number] [address] [place] Oxygen (Bld) [Partial pressure] 279 mm Hg High 85-95 [facility] Comment on above: Order Comment: Speci men Type: ARTERIAL BLOOD SPECIMENOrdering Facility: [facility] Address: [address] [place] [address] Performed By: #### A LLBG ####[facility]ORYCLIA [id number] [address] Oxygen adjusted to patient's actual temperature (Bld) [Partial pressure] 281 mmHg High 85-95 [facility] Comment on above: Order Comment: Speci men Type: ARTERIAL BLOOD SPECIMENOrdering Facility: [facility] Address: [address] [place] [address] Performed By: #### A LLBG ####[facility]ORYCLIA [id number] [address] [place] OXYGEN SATURATION, ARTERIAL 100 % High 95-98 [facility] Comment on above: Order Comment: Speci men Type: ARTERIAL BLOOD SPECIMENOrdering Facility: [facility] Address: [facility] [place] [address] Performed By: #### A LLBG ####[facility]ORYCLIA [id number] [address] [place] Oxyhemoglobin (BldA) [Mass fraction] 98 % Normal 95-98 [facility] Comment on above: Order Comment: Speci men Type: ARTERIAL BLOOD SPECIMENOrdering Facility: [facility] Address: [address] [place] [address] Performed By: #### A LLBG ####[facility]ORYCLIA [id number] [address] pH (Bld) 7.47 [pH] High 7.35-7.45 [facility] Comment on above: Order Comment: Speci men Type: ARTERIAL BLOOD SPECIMENOrdering Facility: [facility] Address: [address] [place] [address] Performed By: #### A LLBG ####[facility]ORYCLIA [id number] [address] pH adjusted to patient's actual temperature (Bld) 7.46 High 7.35-7.45 [facility] Comment on above: Order Comment: Speci men Type: ARTERIAL BLOOD SPECIMENOrdering Facility: [facility] Address: [address] [place] [address] Performed By: #### A LLBG ####[facility]ORYCLIA [id number] [address] [place] Potassium [Moles/Vol] 3.6 mmol/L Normal 3.5-5.0 [facility] Comment on above: Order Comment: Speci men Type: ARTERIAL BLOOD SPECIMENOrdering Facility: [facility] Address: [address] [place] [address] Performed By: #### A LLBG ####[facility]ORYCLIA [id number] [address] [place] Sodium [Moles/Vol] 162 mmol/L High 136-144 [facility] Comment on above: Order Comment: Speci men Type: ARTERIAL BLOOD SPECIMENOrdering Facility: [facility] Address: [address] [place] [address] Performed By: #### A LLBG ####[facility]ORYCLIA [id number] [address] [place] Base excess Calc (Bld) [Moles/Vol] 4 mmol/L High 0-2 [facility] Comment on above: Order Comment: Speci men Type: ARTERIAL BLOOD SPECIMENOrdering Facility: [facility] Address: [address] [place] [address] Performed By: #### A LLBG ####[facility]ORYCLIA [id number] [address] [place] Body temperature 100.58 [degF] Normal [facility] Comment on above: Order Comment: Speci men Type: ARTERIAL BLOOD SPECIMENOrdering Facility: [facility] Address: [address] [place] [address] Performed By: #### A LLBG ####[facility]ORYCLIA [id number] [place] [address] [place] CALCIUM IONIZED, PH CORRECTED 1.34 mmol/L High 1.08-1.30 [facility] Comment on above: Order Comment: Speci men Type: ARTERIAL BLOOD SPECIMENOrdering Facility: [facility] Address: [address] [place] [address] Performed By: #### A LLBG ####[facility]ORYCLIA [id number] [address] [place] Calcium.ionized (BldV) [Mass/Vol] 1.33 mmol/L High 1.08-1.30 [facility] Comment on above: Order Comment: Speci men Type: ARTERIAL BLOOD SPECIMENOrdering Facility: [facility] Address: [address] [place] [address] Performed By: #### A LLBG ####[facility]ATORYCLIA [id number] [place] [address] [place] Carboxyhemoglobin (BldA) [Mass fraction] 1.5 % Normal 0.0-2.0 [facility] Comment on above: Order Comment: Speci men Type: ARTERIAL BLOOD SPECIMENOrdering Facility: [facility] Address: [address] [place] [address] Result Comment: Carb oxyhemoglobin Reference Range for Smokers: 2.0-8.0% Performed By: #### A LLBG ####[facility]ORYCLIA [id number] [address] CO2 (Bld) [Partial pressure] 46 mm Hg Normal 36-46 [facility] Comment on above: Order Comment: Speci men Type: ARTERIAL BLOOD SPECIMENOrdering Facility: [facility] Address: [address] [address] Performed By: #### A LLBG ####[facility]ORYCLIA [id number] [address] CO2 [Moles/Vol] 26.4 mmol/L Normal 22-28 [facility] Comment on above: Order Comment: Speci men Type: ARTERIAL BLOOD SPECIMENOrdering Facility: [facility] Address: [address] [place] [address] Performed By: #### A LLBG ####[facility]ORYCLIA [id number] [address] CO2 adjusted to patient's actual temperature (Bld) [Partial pressure] 48 mmHg High 36-46 [facility] Comment on above: Order Comment: Speci men Type: ARTERIAL BLOOD SPECIMENOrdering Facility: [facility] Address: [address] [place] [address] Performed By: #### A LLBG ####[facility]ORYCLIA [id number] [address] FIO2 100 % Normal [facility] Comment on above: Order Comment: Speci men Type: ARTERIAL BLOOD SPECIMENOrdering Facility: [facility] Address: [address] [address] Performed By: #### A LLBG ####[facility]ATORYCLIA [id number] [address] Glucose [Mass/Vol] 132 mg/dL High 60-105 [facility] Comment on above: Order Comment: Speci men Type: ARTERIAL BLOOD SPECIMENOrdering Facility: [facility] Address: [address] [place], [place] [address] Performed By: #### A LLBG ####[facility]ORYCLIA [id number] [address] [place] HCO3 (Bld) [Moles/Vol] 29 mmol/L High 22-26 [facility] Comment on above: Order Comment: Speci men Type: ARTERIAL BLOOD SPECIMENOrdering Facility: [facility] Address: [address] [place] [address] Performed By: #### A LLBG ####[facility]ATORYCLIA [id number] [address] [place] Hematocrit (Bld) [Volume fraction] 32.3 % Low 39.0-51.0 [facility] Comment on above: Order Comment: Speci men Type: ARTERIAL BLOOD SPECIMENOrdering Facility: [facility] Address: [address] [place] [address] Performed By: #### A LLBG ####[facility]ATORYCLIA [id number] [address] OF [facility] Hemoglobin (Bld) [Mass/Vol] 10.4 g/dL Low 13.0-17.0 [facility] Comment on above: Order Comment: Speci men Type: ARTERIAL BLOOD SPECIMENOrdering Facility: [facility] Address: [address] [place] [address] Performed By: #### A LLBG ####[facility]ATORYCLIA [id number] [address] [place] Methemoglobin (Bld) [Mass fraction] % Normal 0.0-1.5 [facility] Comment on above: Order Comment: Speci men Type: ARTERIAL BLOOD SPECIMENOrdering Facility: [facility] Address: [address] [place] [address] Performed By: #### A LLBG ####[facility]ORYCLIA [id number] [address] [place] O2 THERAPY NR=Non-Rebreather Mask Normal [facility] Comment on above: Order Comment: Speci men Type: ARTERIAL BLOOD SPECIMENOrdering Facility: [facility] Address: [address] [place] [address] Performed By: #### A LLBG ####[facility]ATORYCLIA [id number] [address] Oxygen (Bld) [Partial pressure] 130 mm Hg High 85-95 [facility] Comment on above: Order Comment: Speci men Type: ARTERIAL BLOOD SPECIMENOrdering Facility: [facility] Address: [address] [place] [address] Performed By: #### A LLBG ####[facility]ORYCLIA [id number] [address] Oxygen adjusted to patient's actual temperature (Bld) [Partial pressure] 136 mmHg High 85-95 [facility] Comment on above: Order Comment: Speci men Type: ARTERIAL BLOOD SPECIMENOrdering Facility: [facility] Address: [address] [place] [address] Performed By: #### A LLBG ####[facility]ATORYCLIA [id number] [address] [place] OXYGEN SATURATION, ARTERIAL 99 % High 95-98 [facility] Comment on above: Order Comment: Speci men Type: ARTERIAL BLOOD SPECIMENOrdering Facility: [facility] Address: [address] [place] [address] Performed By: #### A LLBG ####[facility]ATORYCLIA [id number] [address] [place] Oxyhemoglobin (BldA) [Mass fraction] 97 % Normal 95-98 [facility] Comment on above: Order Comment: Speci men Type: ARTERIAL BLOOD SPECIMENOrdering Facility: [facility] Address: [address] [place] [address] Performed By: #### A LLBG ####[facility]ATORYCLIA [id number] [address] [place] pH (Bld) 7.41 [pH] Normal 7.35-7.45 [facility] Comment on above: Order Comment: Speci men Type: ARTERIAL BLOOD SPECIMENOrdering Facility: [facility] Address: [address] [place] [address] Performed By: #### A LLBG ####[facility]ORYCLIA [id number] [address] pH adjusted to patient's actual temperature (Bld) 7.40 Normal 7.35-7.45 [facility] Comment on above: Order Comment: Speci men Type: ARTERIAL BLOOD SPECIMENOrdering Facility: [facility] Address: [address] [place] [address] Performed By: #### A LLBG ####[facility]ORYCLIA [id number] [address] Potassium [Moles/Vol] 3.8 mmol/L Normal 3.5-5.0 [facility] Comment on above: Order Comment: Speci men Type: ARTERIAL BLOOD SPECIMENOrdering Facility: [facility] Address: [address] [place] [address] Performed By: #### A LLBG ####[facility]ATORYCLIA [id number] [address] [facility] Sodium [Moles/Vol] 166 mmol/L High 136-144 [facility] Comment on above: Order Comment: Speci men Type: ARTERIAL BLOOD SPECIMENOrdering Facility: [facility] Address: [address] [place] [address] Performed By: #### A LLBG ####[facility]ORYCLIA [id number] [place] [address] [place] Bacteria Bld Culton 06-15-19 Bacteria identified Cx Nom (Bld) CULTURE, BLOOD: No growth 5 days Normal [facility] Comment on above: Performed By: #### 6 00-7 ####[facility]ATORYCLIA [id number] [place] [address] [place] Basic metabolic 2000 panelon 06-15-2021 Anion gap [Moles/Vol] 9 mmol/L Normal 9-18 [facility] Comment on above: Order Comment: Speci men Type: BLOOD SPECIMEN Performed By: #### 2 4321-2, 2776-05, ####[facility]ATORYCLIA [id number] [place], [place] [id number] [place] [address] STATES [place] [facility] Calcium [Mass/Vol] 9.0 mg/dL Normal 8.5-10.2 [facility] Comment on above: Order Comment: Speci men Type: BLOOD SPECIMEN Performed By: #### 2 4321-2, 2776-05, ####[facility]ORYCLIA [id number] [address] [place] Chloride [Moles/Vol] 125 mmol/L High 97-105 [facility] Comment on above: Order Comment: Speci men Type: BLOOD SPECIMEN Performed By: #### 2 4321-2, 2776-05, ####[facility]ORYCLIA [id number] [address] [place] CO2 [Moles/Vol] 29 mmol/L Normal 22-30 [facility] Comment on above: Order Comment: Speci men Type: BLOOD SPECIMEN Performed By: #### 2 4321-2, 2776-05, ####[facility]ATORYCLIA [id number] [address] [place] Creatinine [Mass/Vol] 0.81 mg/dL Normal 0.73-1.22 [facility] Comment on above: Order Comment: Speci men Type: BLOOD SPECIMEN Performed By: #### 2 4321-2, 2776-05, ####[facility]ORYCLIA [id number] [place] [address] [place] GFR/1.73 sq M.predicted [...] has been calibrated to be traceable to IDGA. An eGFR <60 mL/min/1.73m2 for >3 months is consistent with chronic kidney disease. Refer to KDOQI guidelines for clinical interpretation. In patients with unstable renal function, e.g. those with acute kidney injury, the eGFR may not accurately reflect actual GFR. Performed By: #### 2 4321-2, 2776-05, ####[facility]ITALCLIA [id number] [place] [address] [place] Glucose [Mass/Vol] 124 [...] 1). Performed By: #### 2 4321-2, 2776-05, ####[facility]ATORYCLIA [id number] [place] [address] [place] Potassium [Moles/Vol] 3.8 mmol/L Normal 3.7-5.1 [facility] Comment on above: Order Comment: Speci men Type: BLOOD SPECIMEN Performed By: #### 2 4321-2, 2776-05, ####[facility]ATORYCLIA [id number] [place] [address] [place] Sodium [Moles/Vol] 163 mmol/L High 136-144 [facility] Comment on above: Order Comment: Speci men Type: BLOOD SPECIMEN Performed By: #### 2 4321-2, 2776-, ####[facility]ATORYCLIA [id number] [place], [place] [id number] [place] [address] [place] Urea nitrogen [Mass/Vol] 35 mg/dL High 9-24 [facility] Comment on above: Order Comment: Speci men Type: BLOOD SPECIMEN Performed By: #### 2 4321-2, 2776-, ####[facility]ORYCLIA [id number] [address] [place] CBC panel Auto (Bld)on 06-15 Erythrocyte distribution width (RBC) [Ratio] 16.3 % High 11.5-15.0 [facility] Comment on above: Order Comment: Speci men Type: BLOOD SPECIMENOrdering Facility: [facility] Address: [address] [place] [address] Performed By: #### 5 8410-2 ####[facility]ATORYCLIA [id number] [address] [place] Hematocrit (Bld) [Volume fraction] 30.0 % Low 39.0-51.0 [facility] Comment on above: Order Comment: Speci men Type: BLOOD SPECIMENOrdering Facility: [facility] Address: [address] [place] [address] Performed By: #### 5 8410-2 ####[facility]ATORYCLIA [id number] [address] [place] Hemoglobin (Bld) [Mass/Vol] 8.9 g/dL Low 13.0-17.0 [facility] Comment on above: Order Comment: Speci men Type: BLOOD SPECIMENOrdering Facility: [facility] Address: [address] [place] [address] Performed By: #### 5 8410-2 ####[facility]ATORYCLIA [id number] [address] MCH (RBC) [Entitic mass] 28.7 pg Normal 26.0-34.0 [facility] Comment on above: Order Comment: Speci men Type: BLOOD SPECIMENOrdering Facility: [facility] Address: [address] [place] [address] Performed By: #### 5 8410-2 ####[facility]ATORYCLIA [id number] [address] MCHC (RBC) [Mass/Vol] 29.7 g/dL Low 30.5-36.0 [facility] Comment on above: Order Comment: Speci men Type: BLOOD SPECIMENOrdering Facility: [facility] Address: [address] [place] [address] Performed By: #### 5 8410-2 ####[facility]ATORYCLIA [id number] [address] MCV (RBC) [Entitic vol] 96.8 fL Normal 80.0-100.0 [facility] Comment on above: Order Comment: Speci men Type: BLOOD SPECIMENOrdering Facility: [facility] Address: [address] [place] [address] Performed By: #### 5 8410-2 ####[facility]ATORYCLIA [id number] [address] Nucleated RBC (Bld) [#/Vol] 10*3/uL Normal <0.01 [facility] Comment on above: Order Comment: Speci men Type: BLOOD SPECIMENOrdering Facility: [facility] Address: [address] [place] [address] Performed By: #### 5 8410-2 ####[facility]ATORYCLIA [id number] [address] Platelet mean volume (Bld) [Entitic vol] 12.3 fL Normal 9.0-12.7 [facility] Comment on above: Order Comment: Speci men Type: BLOOD SPECIMENOrdering Facility: [facility] Address: [address] [address] Performed By: #### 5 8410-2 ####[facility]ORYCLIA [id number] [address] Platelets (Bld) [#/Vol] 226 10*3/uL Normal 150-400 [facility] Comment on above: Order Comment: Speci men Type: BLOOD SPECIMENOrdering Facility: [facility] Address: [address] [place] [address] Performed By: #### 5 8410-2 ####[facility]ORYCLIA [id number] [address] RBC (Bld) [#/Vol] 3.10 10*6/uL Low 4.20-6.00 [facility] Comment on above: Order Comment: Speci men Type: BLOOD SPECIMENOrdering Facility: [facility] Address: [address] [place] [address] Performed By: #### 5 8410-2 ####[facility]ORYCLIA [id number] [address] WBC (Bld) [#/Vol] 10.77 10*3/uL Normal 3.70-11.00 [facility] Comment on above: Order Comment: Speci men Type: BLOOD SPECIMENOrdering Facility: [facility] Address: [address] [place] [address] Performed By: #### 5 8410-2 ####[facility]ORYCLIA [id number] [address] Erythrocyte distribution width (RBC) [Ratio] 16.2 % High 11.5-15.0 [facility] Comment on above: Order Comment: Speci men Type: BLOOD SPECIMENOrdering Facility: [facility] Address: [address] [place] [address] Performed By: #### 5 8410-2 ####[facility]ORYCLIA [id number] [address] Hematocrit (Bld) [Volume fraction] 34.8 % Low 39.0-51.0 [facility] Comment on above: Order Comment: Speci men Type: BLOOD SPECIMENOrdering Facility: [facility] Address: [address] [place] [address] Performed By: #### 5 8410-2 ####[facility]ATORYCLIA [id number] [address] STATES [place] [facility] Hemoglobin (Bld) [Mass/Vol] 10.0 g/dL Low 13.0-17.0 [facility] Comment on above: Order Comment: Speci men Type: BLOOD SPECIMENOrdering Facility: [facility] Address: [address] [place] [address] Performed By: #### 5 8410-2 ####[facility]ORYCLIA [id number] [address] OF [facility] MCH (RBC) [Entitic mass] 27.5 pg Normal 26.0-34.0 [facility] Comment on above: Order Comment: Speci men Type: BLOOD SPECIMENOrdering Facility: [facility] Address: [address] [place] [address] Performed By: #### 5 8410-2 ####[facility]ORYCLIA [id number] [address] STATES [place] [facility] MCHC (RBC) [Mass/Vol] 28.7 g/dL Low 30.5-36.0 [facility] Comment on above: Order Comment: Speci men Type: BLOOD SPECIMENOrdering Facility: [facility] Address: [address] [place] [address] Performed By: #### 5 8410-2 ####[facility]ATORYCLIA [id number] [address] MCV (RBC) [Entitic vol] 95.6 fL Normal 80.0-100.0 [facility] Comment on above: Order Comment: Speci men Type: BLOOD SPECIMENOrdering Facility: [facility] Address: [address] [place] [address] Performed By: #### 5 8410-2 ####[facility]ATORYCLIA [id number] [address] Nucleated RBC (Bld) [#/Vol] 10*3/uL Normal <0.01 [facility] Comment on above: Order Comment: Speci men Type: BLOOD SPECIMENOrdering Facility: [facility] Address: [address] [place] [address] Performed By: #### 5 8410-2 ####[facility]ATORYCLIA [id number] [address] [place] Platelet mean volume (Bld) [Entitic vol] 11.9 fL Normal 9.0-12.7 [facility] Comment on above: Order Comment: Speci men Type: BLOOD SPECIMENOrdering Facility: [facility] Address: [address] [place] [address] Performed By: #### 5 8410-2 ####[facility]ATORYCLIA [id number] [address] [place] Platelets (Bld) [#/Vol] 246 10*3/uL Normal 150-400 [facility] Comment on above: Order Comment: Speci men Type: BLOOD SPECIMENOrdering Facility: [facility] Address: [address] [place] [address] Performed By: #### 5 8410-2 ####[facility]ORYCLIA [id number] [address] [place] RBC (Bld) [#/Vol] 3.64 10*6/uL Low 4.20-6.00 [facility] Comment on above: Order Comment: Speci men Type: BLOOD SPECIMENOrdering Facility: [facility] Address: [address] [place] [address] Performed By: #### 5 8410-2 ####[facility]ORYCLIA [id number] [address] [place] WBC (Bld) [#/Vol] 11.45 10*3/uL High 3.70-11.00 [facility] Comment on above: Order Comment: Speci men Type: BLOOD SPECIMENOrdering Facility: [facility] Address: [address] [place] [address] Performed By: #### 5 8410-2 ####[facility]ORYCLIA [id number] [address] Erythrocyte distribution width (RBC) [Ratio] 15.9 % High 11.5-15.0 [facility] Comment on above: Order Comment: Speci men Type: BLOOD SPECIMEN Performed By: #### 5 8410-2 ####[facility]ORYCLIA [id number] [address] Hematocrit (Bld) [Volume fraction] 35.8 % Low 39.0-51.0 [facility] Comment on above: Order Comment: Speci men Type: BLOOD SPECIMEN Performed By: #### 5 8410-2 ####[facility]ORYCLIA [id number] [address] Hemoglobin (Bld) [Mass/Vol] 10.4 g/dL Low 13.0-17.0 [facility] Comment on above: Order Comment: Speci men Type: BLOOD SPECIMEN Performed By: #### 5 8410-2 ####[facility]ORYCLIA [id number] [address] MCH (RBC) [Entitic mass] 28.0 pg Normal 26.0-34.0 [facility] Comment on above: Order Comment: Speci men Type: BLOOD SPECIMEN Performed By: #### 5 8410-2 ####[facility]ORYCLIA [id number] [address] OF [facility] MCHC (RBC) [Mass/Vol] 29.1 g/dL Low 30.5-36.0 [facility] Comment on above: Order Comment: Speci men Type: BLOOD SPECIMEN Performed By: #### 5 8410-2 ####[facility]ORYCLIA [id number] [address] MCV (RBC) [Entitic vol] 96.2 fL Normal 80.0-100.0 [facility] Comment on above: Order Comment: Speci men Type: BLOOD SPECIMEN Performed By: #### 5 8410-2 ####[facility]ORYCLIA [id number] [address] Nucleated RBC (Bld) [#/Vol] 10*3/uL Normal <0.01 [facility] Comment on above: Order Comment: Speci men Type: BLOOD SPECIMEN Performed By: #### 5 8410-2 ####[facility]ORYCLIA [id number] [address] Platelet mean volume (Bld) [Entitic vol] 11.6 fL Normal 9.0-12.7 [facility] Comment on above: Order Comment: Speci men Type: BLOOD SPECIMEN Performed By: #### 5 8410-2 ####[facility]ORYCLIA [id number] [address] Platelets (Bld) [#/Vol] 265 10*3/uL Normal 150-400 [facility] Comment on above: Order Comment: Speci men Type: BLOOD SPECIMEN Performed By: #### 5 8410-2 ####[facility]ORYCLIA [id number] [address] RBC (Bld) [#/Vol] 3.72 10*6/uL Low 4.20-6.00 [facility] Comment on above: Order Comment: Speci men Type: BLOOD SPECIMEN Performed By: #### 5 8410-2 ####[facility]ORYCLIA [id number] [address] WBC (Bld) [#/Vol] 12.24 10*3/uL High 3.70-11.00 [facility] Comment on above: Order Comment: Speci men Type: BLOOD SPECIMEN Performed By: #### 5 8410-2 ####[facility]ORYCLIA [id number] [address] [place] CONSULTon 06-15-2021 CONSULT Normal [facility] [...] Comment: Speci men Type: URINE SPECIMENOrdering Facility: [facility] Address: [address] [place] [address] Performed By: #### U TPR, 33736-5, 82930-1, 52957-8 ####[facility]ORYCLIA [id number] [address] Comprehensive metabolic 2000 panelon 06-15-2021 Albumin [Mass/Vol] 2.8 g/dL Low 3.9-4.9 [facility] Comment on above: Order Comment: Speci men Type: BLOOD SPECIMENOrdering Facility: [facility] Address: [address] [place] [address] Performed By: #### 2 4323-8 ####[facility]ORYCLIA [id number] [address] [place] ALP [Catalytic activity/Vol] 74 U/L Normal 38-113 [facility] Comment on above: Order Comment: Speci men Type: BLOOD SPECIMENOrdering Facility: [facility] Address: [address] [place] [address] Performed By: #### 2 4323-8 ####[facility]ORYCLIA [id number] [address] [place] ALT With P-5'-P [Catalytic activity/Vol] 50 U/L Normal 10-54 [facility] Comment on above: Order Comment: Speci men Type: BLOOD SPECIMENOrdering Facility: [facility] Address: [address] [place] [address] Performed By: #### 2 4323-8 ####[facility] LABORATORYCLIA [id number] [place] [address] [place] Anion gap [Moles/Vol] 12 mmol/L Normal 9-18 [facility] Comment on above: Order Comment: Speci men Type: BLOOD SPECIMENOrdering Facility: [facility] Address: [address] [place] [address] Performed By: #### 2 4323-8 ####[facility]ORATORYCLIA [id number] [address] [place] AST With P-5'-P [Catalytic activity/Vol] 36 U/L Normal 14-40 [facility] Comment on above: Order Comment: Speci men Type: BLOOD SPECIMENOrdering Facility: [facility] Address: [address] [place] [address] Performed By: #### 2 4323-8 ####[facility]ORYCLIA [id number] [place] [address] [place] Bilirubin [Mass/Vol] 0.5 mg/dL Normal 0.2-1.3 [facility] Comment on above: Order Comment: Speci men Type: BLOOD SPECIMENOrdering Facility: [facility] Address: [address] [place] [address] Performed By: #### 2 4323-8 ####[facility]ORYCLIA [id number] [address] [place] Calcium [Mass/Vol] 8.8 mg/dL Normal 8.5-10.2 [facility] Comment on above: Order Comment: Speci men Type: BLOOD SPECIMENOrdering Facility: [facility] Address: [address] [place] [address] Performed By: #### 2 4323-8 ####[facility]ORATORYCLIA [id number] [address] [place] Chloride [Moles/Vol] 126 mmol/L High 97-105 [facility] Comment on above: Order Comment: Speccara feldman Type: BLOOD SPECIMENOrdering Facility: [facility] Address: [address] [place] [address] Performed By: #### 2 4323-8 ####[facility]ORYCLIA [id number] [address] [place] CO2 [Moles/Vol] 24 mmol/L Normal 22-30 [facility] Comment on above: Order Comment: Johni francia Type: BLOOD SPECIMENOrdering Facility: [facility] Address: [address] [place] [address] Performed By: #### 2 4323-8 ####[facility]ORYCLIA [id number] [address] [place] Creatinine [Mass/Vol] 0.84 mg/dL Normal 0.73-1.22 [facility] Comment on above: Order Comment: Johncara feldman Type: BLOOD SPECIMENOrdering Facility: [facility] Address: [address] [place] [address] Performed By: #### 2 4323-8 ####[facility]ORYCLIA [id number] [address] [place] GFR/1.73 sq M.predicted MDRD (S/P/Bld) [Vol rate/Area] mL/min/{1.73_m2} Normal [facility] Comment on above: Order Comment: Johncara feldman Type: BLOOD SPECIMENOrdering Facility: [facility] Address: [address] [place] [address] Result Comment: >60e GFR (Estimated GFR) Units [...] actual GFR. Performed By: #### 2 4323-8 ####[facility]ATORYCLIA [id number] [place] [address] [place] Glucose [Mass/Vol] 142 mg/dL High 74-99 [facility] Comment on above: Order Comment: Shira feldman Type: BLOOD SPECIMENOrdering Facility: [facility] Address: [address] [place] [address] Result Comment: The [place] [employer] [...] 2016.39(Suppl 1). Performed By: #### 2 4323-8 ####[facility]ATORYCLIA [id number] [place] [address] [place] Potassium [Moles/Vol] 3.8 mmol/L Normal 3.7-5.1 [facility] Comment on above: Order Comment: Shira feldman Type: BLOOD SPECIMENOrdering Facility: [facility] Address: [address] [address] Performed By: #### 2 4323-8 ####[facility]ORYCLIA [id number] [place] [address] [place] Protein [Mass/Vol] 6.1 g/dL Low 6.3-8.0 [facility] Comment on above: Order Comment: Shira feldman Type: BLOOD SPECIMENOrdering Facility: [facility] Address: [address] [address] Performed By: #### 2 4323-8 ####[facility]ATORYCLIA [id number] [place] [address] [place] Sodium [Moles/Vol] 162 mmol/L High 136-144 [facility] Comment on above: Order Comment: Speci men Type: BLOOD SPECIMENOrdering Facility: [facility] Address: [address] [place] [address] Performed By: #### 2 4323-8 ####[facility]ATORYCLIA [id number] [place] [address] [place] Urea nitrogen [Mass/Vol] 33 mg/dL High 9-24 [facility] Comment on above: Order Comment: Speci men Type: BLOOD SPECIMENOrdering Facility: [facility] Address: [address] [place] [address] Performed By: #### 2 4323-8 ####[facility]ORYCLIA [id number] [address] [place] Creatinine Unsp time (U) [Ma ss/Vol]on 06-15-2021 Creatinine (U) [Mass/Vol] 87.0 mg/dL Normal 46.8-314.5 [facility] Comment on above: Order Comment: Speci men Type: URINE SPECIMENOrdering Facility: [facility] Address: [address] [place] [address] Performed By: #### U TPR, 58325-3, 28615-9, 37779-5 ####[facility]ORYCLIA [id number] [address] [place] HIGH SENSITIVITY TROPONIN To n 06-15-2021 HIGH SENSITIVITY TAMIKO 23 ng/L High <12 [facility] Comment on above: Order Comment: Speci men Type: BLOOD SPECIMENOrdering Facility: [facility] Address: [address] [place] [address] Result Comment: When assessing risk for acute [...] day MACE. Performed By: #### P JULIANNE, 14930-4, HSTNT ####[facility]ATORYCLIA [id number] [address] [place] [facility] Lactate (Bld) [Moles/Vol]on 06-15-2021 Lactate [Moles/Vol] 0.8 mmol/L Normal 0.5-2.2 [facility] Comment on above: Order Comment: Speci men Type: BLOOD SPECIMENOrdering Facility: [facility] Address: [address] [place] [address] Performed By: #### 3 2693-4 ####[facility] [id number] [address] [place] Magnesium [facility]-ncon 06-15 Magnesium [Mass/Vol] 3.0 mg/dL High 1.7-2.3 [facility] Comment on above: Order Comment: Speci men Type: BLOOD SPECIMEN Performed By: #### 2 4321-2, 2777-1, 68930-6 ####[facility]ORYCLIA [id number] [address] [facility] Natriuretic peptide.B prohormone N-Terminal [Mass/Vol] 265 pg/mL High <125 [facility] Comment on above: Order Comment: Speci men Type: BLOOD SPECIMENOrdering Facility: [facility] Address: [address] [address] Performed By: #### P JULIANNE, 81504-9, HSTNT ####[facility]ATORYCLIA [id number] [address] [place] Osmolality Uron 06-15-2021 Osmolality (U) [Osmolality] 606 mosm/kg Normal 50-1,200 [facility] Comment on above: Order Comment: Speci men Type: URINE SPECIMENOrdering Facility: [facility] Address: [address] [place] [address] Performed By: #### 2 695-5 ####[facility]ATORYCLIA [id number] [address] PROCALCITONIN (LAB)on 2021 Procalcitonin [Mass/Vol] 0.21 ng/mL High <0.09 [facility] Comment on above: Order Comment: Speci men Type: BLOOD SPECIMENOrdering Facility: [facility] Address: [address] [place] [address] Result Comment: For a guided interpretation of test results, please visit the Change in Procalcitonin Calculator, [email or web address]. Performed By: #### P JULIANNE, 2951-2 ####[facility]ATORYCLIA [id number] [address] Procalcitonin [Mass/Vol] 0.17 ng/mL High <0.09 [facility] Comment on above: Order Comment: Speci men Type: BLOOD SPECIMENOrdering Facility: [facility] Address: [address] [place] [address] Result Comment: For a guided interpretation of test results, please visit the Change in Procalcitonin Calculator, [email or web address]. Performed By: #### P JULIANNE, 16432-5, HSTNT ####[facility]ATORYCLIA [id number] [address] PROTEIN RANDOM URon 06-15-19 22 Protein (U) [Mass/Vol] 175 mg/dL High 0-20 [facility] Comment on above: Order Comment: Speci men Type: URINE SPECIMENOrdering Facility: [facility] Address: [address] [place] [address] Performed By: #### U TPR, 07967-1, 42903-2, 26074-1 ####[facility]ORYCLIA [id number] [address] PT panel Coag (PPP)on 2021 INR Coag (PPP) [Relative time] 1.1 {INR} Normal <1.4 [facility] Comment on above: Order Comment: Shira feldman Type: BLOOD SPECIMENOrdering Facility: [facility] Address: [address] [place] [address] Result Comment: Yris min K Antagonist (VKA) [...] al. Chest 2012, 141:7S-47SNishimura RA, et al. [facility] 2017, 70: 252-289 Performed By: #### 3 4528-0, 16754-4 ####[facility]ATORYCLIA [id number] [place] [address] [place] PT Coag (PPP) [Time] 11.4 s Normal <13.1 [facility] Comment on above: Order Comment: Shira feldman Type: BLOOD SPECIMENOrdering Facility: [facility] Address: [address] [place], [place] [address] Performed By: #### 3 4528-0, 66555-4 ####[facility]ATORYCLIA [id number] [place] [address] [place] Phosphate SerPl-mCncon 06-15 Phosphate [Mass/Vol] 2.6 mg/dL Low 2.7-4.8 [facility] Comment on above: Order Comment: Shira feldman Type: BLOOD SPECIMEN Performed By: #### 2 4321-2, 2777-1, 40390-7 ####[facility]ORYCLIA [id number] [place] [address] [place] Sodium ?Tm Ur-sCncon 022 Sodium Unsp time (U) [Moles/Vol] 34 mmol/L Normal 14-216 [facility] Comment on above: Order Comment: Speci men Type: URINE SPECIMENOrdering Facility: [facility] Address: [address] [place] [address] Performed By: #### U TPR, 83043-2, 15927-4, 45382-5 ####[facility]ORYCLIA [id number] [address] [place] Sodium SerPl-sCncon 06-15-19 22 Sodium [Moles/Vol] 159 mmol/L High 136-144 [facility] Comment on above: Order Comment: Speci men Type: BLOOD SPECIMENOrdering Facility: [facility] Address: [address] [place] [address] Performed By: #### P JULIANNE, 2951-2 ####[facility]ATORYCLIA [id number] [address] [place] THERAPY NTon 06-15-2021 THERAPY NT Normal [facility] Urinalysis complete panel (U )on 06-15-2021 Bacteria LM.HPF (Urine sed) [#/Area] None Seen Normal None Seen [facility] Comment on above: Order Comment: Speci men Type: URINE SPECIMENOrdering Facility: [facility] Address: [address] [place] [address] Performed By: #### 2 4356-8 ####[facility]ATORYCLIA [id number] [address] [place] Bilirubin Ql (U) Negative Normal Negative [facility] Comment on above: Order Comment: Speci men Type: URINE SPECIMENOrdering Facility: [facility] Address: [address] [place] [address] Performed By: #### 2 4356-8 ####[facility]ATORYCLIA [id number] [address] Clarity (Unsp spec) Cloudy Abnormal Clear [facility] Comment on above: Order Comment: Speci men Type: URINE SPECIMENOrdering Facility: [facility] Address: [address] [place] [address] Performed By: #### 2 4356-8 ####[facility]ATORYCLIA [id number] [address] Color (U) Yellow Normal Yellow [facility] Comment on above: Order Comment: Speci men Type: URINE SPECIMENOrdering Facility: [facility] Address: [address] [place] [address] Performed By: #### 2 4356-8 ####[facility]ATORYCLIA [id number] [address] Epithelial cells LM.HPF (Urine sed) [#/Area] 7.1 /[HPF] Normal [facility] Comment on above: Order Comment: Speci men Type: URINE SPECIMENOrdering Facility: [facility] Address: [address] [place] [address] Performed By: #### 2 4356-8 ####[facility]ATORYCLIA [id number] [address] Glucose Test strip (U) [Mass/Vol] Negative Normal Negative [facility] Comment on above: Order Comment: Speci men Type: URINE SPECIMENOrdering Facility: [facility] Address: [address] [place] [address] Performed By: #### 2 4356-8 ####[facility]ATORYCLIA [id number] [address] Granular casts (Urine sed) [#/Area] /[LPF] Abnormal 0 /LPF [facility] Comment on above: Order Comment: Speci men Type: URINE SPECIMENOrdering Facility: [facility] Address: [address] [place] [address] Performed By: #### 2 4356-8 ####[facility]ATORYCLIA [id number] [address] [place] Hemoglobin Ql (U) Moderate Abnormal Negative [facility] Comment on above: Order Comment: Speci men Type: URINE SPECIMENOrdering Facility: [facility] Address: [address] [place] [address] Performed By: #### 2 4356-8 ####[facility]ATORYCLIA [id number] [place] [address] [place] Hyaline casts (Urine sed) [#/Area] /[LPF] Abnormal 0 /LPF [facility] Comment on above: Order Comment: Speci men Type: URINE SPECIMENOrdering Facility: [facility] Address: [address] [place] [address] Performed By: #### 2 4356-8 ####[facility]ATORYCLIA [id number] [address] [place] [facility] Ketones Ql (U) Negative Normal Negative [facility] Comment on above: Order Comment: Speci men Type: URINE SPECIMENOrdering Facility: [facility] Address: [address] [place] [address] Performed By: #### 2 4356-8 ####[facility]ATORYCLIA [id number] [address] [place] Leukocyte esterase Test strip Ql (U) Negative Normal Negative [facility] Comment on above: Order Comment: Speci men Type: URINE SPECIMENOrdering Facility: [facility] Address: [address] [place] [address] Performed By: #### 2 4356-8 ####[facility]ATORYCLIA [id number] [place] [address] [place] Nitrite Ql (U) Negative Normal Negative [facility] Comment on above: Order Comment: Speci men Type: URINE SPECIMENOrdering Facility: [facility] Address: [facility] [address] Performed By: #### 2 4356-8 ####[facility]ATORYCLIA [id number] [address] pH (U) 6.0 [pH] Normal 5.0-8.0 [facility] Comment on above: Order Comment: Speci men Type: URINE SPECIMENOrdering Facility: [facility] Address: [address] [place] [address] Performed By: #### 2 4356-8 ####[facility]ORYCLIA [id number] [address] Protein (U) [Mass/Vol] 100 mg/dL Abnormal Negative [facility] Comment on above: Order Comment: Speci men Type: URINE SPECIMENOrdering Facility: [facility] Address: [address] [place] [address] Performed By: #### 2 4356-8 ####[facility]ITALCLIA [id number] [address] [place] [facility] RBC LM.HPF (Urine sed) [#/Area] 0-3 /HPF Normal 0-3 /HPF [facility] Comment on above: Order Comment: Speci men Type: URINE SPECIMENOrdering Facility: [facility] Address: [address] [place] [address] Performed By: #### 2 4356-8 ####[facility]ORYCLIA [id number] [address] Specific gravity (U) [Rel density] 1.024 Normal 1.005-1.030 [facility] Comment on above: Order Comment: Speci men Type: URINE SPECIMENOrdering Facility: [facility] Address: [address] [place] [address] Performed By: #### 2 4356-8 ####[facility]ORYCLIA [id number] [address] Urobilinogen Ql (U) 0.2 EU/dL Normal 0.2-1.0 EU/dL [facility] Comment on above: Order Comment: Speci men Type: URINE SPECIMENOrdering Facility: [facility] Address: [address] [place] [address], [place] [address] Performed By: #### 2 4356-8 ####[facility]ORYCLIA [id number] [address] [place] [facility] WBC LM.HPF (Urine sed) [#/Area] 0-5 /HPF Normal 0-5 /HPF [facility] Comment on above: Order Comment: Speci men Type: URINE SPECIMENOrdering Facility: [facility] Address: [address] [place], [place] [address] [address] Performed By: #### 2 4356-8 ####[facility]ORYCLIA [id number] [address] [place] [facility] XR CHEST 1V FRONTALon 2021 XR [...] Comment: Speci men Type: BLOOD SPECIMENOrdering Facility: [facility] Address: [facility] [address] [address] Performed By: #### 3 4528-0, 96157-0 ####[facility]ORYCLIA [id number] [address] [place] [facility] Basic metabolic 2000 panelon 06-14-2021 Anion gap [Moles/Vol] 8 mmol/L Low 9-18 [facility] Comment on above: Order Comment: Speci men Type: BLOOD SPECIMEN Performed By: #### 2 4321-2, 2777-1, 95409-3 ####[facility]ORYCLIA [id number] [address] [place] [facility] Calcium [Mass/Vol] 8.9 mg/dL Normal 8.5-10.2 [facility] Comment on above: Order Comment: Speci men Type: BLOOD SPECIMEN Performed By: #### 2 4321-2, 2776-05, ####[facility]ATORYCLIA [id number] [place], [place] [address] [place] [address] [place] [facility] Chloride [Moles/Vol] 121 mmol/L High 97-105 [facility] Comment on above: Order Comment: Speci men Type: BLOOD SPECIMEN Performed By: #### 2 4321-2, 2776-05, ####[facility]ORYCLIA [id number] [address] [place] CO2 [Moles/Vol] 30 mmol/L Normal 22-30 [facility] Comment on above: Order Comment: Speci men Type: BLOOD SPECIMEN Performed By: #### 2 4321-2, 2776-05, ####[facility]ORYCLIA [id number] [address] [place] [facility] Creatinine [Mass/Vol] 0.78 mg/dL Normal 0.73-1.22 [facility] Comment on above: Order Comment: Speci men Type: BLOOD SPECIMEN Performed By: #### 2 4321-2, 2776-05, ####[facility]ORYCLIA [id number] [address] [place] GFR/1.73 sq M.predicted [...] GFR. Performed By: #### 2 4321-2, 2776-05, ####[facility]ATORYCLIA [id number] [place] [address] [place] Glucose [Mass/Vol] 132 [...] 1). Performed By: #### 2 4321-2, 2776-05, ####[facility]ORYCLIA [id number] [place] [address] [place] Potassium [Moles/Vol] 3.7 mmol/L Normal 3.7-5.1 [facility] Comment on above: Order Comment: Speci men Type: BLOOD SPECIMEN Performed By: #### 2 1-2, 2776-05, ####[facility]ORYCLIA [id number] [place] [address] [place] Sodium [Moles/Vol] 159 mmol/L High 136-144 [facility] Comment on above: Order Comment: Speci men Type: BLOOD SPECIMEN Performed By: #### 2 4321-2, 2776-05, ####[facility]ORYCLIA [id number] [place] [address] [place] Urea nitrogen [Mass/Vol] 35 mg/dL High 9-24 [facility] Comment on above: Order Comment: Speci men Type: BLOOD SPECIMEN Performed By: #### 2 1-2, 2776-05, 51777-5 ####[facility]ORYCLIA [id number] [address] CASE MANAGEMon 06-14-2021 CASE MANAGEM Normal [facility] CBC panel Auto (Bld)on 06-14 Erythrocyte distribution width (RBC) [Ratio] 16.2 % High 11.5-15.0 [facility] Comment on above: Order Comment: Speci men Type: BLOOD SPECIMEN Performed By: #### 5 8410-2 ####[facility]ORYCLIA [id number] [address] Hematocrit (Bld) [Volume fraction] 35.2 % Low 39.0-51.0 [facility] Comment on above: Order Comment: Speci men Type: BLOOD SPECIMEN Performed By: #### 5 8410-2 ####[facility]ORYCLIA [id number] [address] Hemoglobin (Bld) [Mass/Vol] 10.1 g/dL Low 13.0-17.0 [facility] Comment on above: Order Comment: Speci men Type: BLOOD SPECIMEN Performed By: #### 5 8410-2 ####[facility]ORYCLIA [id number] [address] MCH (RBC) [Entitic mass] 27.2 pg Normal 26.0-34.0 [facility] Comment on above: Order Comment: Speci men Type: BLOOD SPECIMEN Performed By: #### 5 8410-2 ####[facility]ORYCLIA [id number] [address] MCHC (RBC) [Mass/Vol] 28.7 g/dL Low 30.5-36.0 [facility] Comment on above: Order Comment: Speci men Type: BLOOD SPECIMEN Performed By: #### 5 8410-2 ####[facility]ORYCLIA [id number] [address] MCV (RBC) [Entitic vol] 94.6 fL Normal 80.0-100.0 [facility] Comment on above: Order Comment: Speci men Type: BLOOD SPECIMEN Performed By: #### 5 8410-2 ####[facility]ORYCLIA [id number] [address] Nucleated RBC (Bld) [#/Vol] 10*3/uL Normal <0.01 [facility] Comment on above: Order Comment: Speci men Type: BLOOD SPECIMEN Performed By: #### 5 8410-2 ####[facility]ORYCLIA [id number] [address] Platelet mean volume (Bld) [Entitic vol] 11.0 fL Normal 9.0-12.7 [facility] Comment on above: Order Comment: Speci men Type: BLOOD SPECIMEN Performed By: #### 5 8410-2 ####[facility]ORYCLIA [id number] [address] Platelets (Bld) [#/Vol] 287 10*3/uL Normal 150-400 [facility] Comment on above: Order Comment: Speci men Type: BLOOD SPECIMEN Performed By: #### 5 8410-2 ####[facility]ORYCLIA [id number] [address] RBC (Bld) [#/Vol] 3.72 10*6/uL Low 4.20-6.00 [facility] Comment on above: Order Comment: Speci men Type: BLOOD SPECIMEN Performed By: #### 5 8410-2 ####[facility]ORYCLIA [id number] [address] WBC (Bld) [#/Vol] 12.23 10*3/uL High 3.70-11.00 [facility] Comment on above: Order Comment: Speci men Type: BLOOD SPECIMEN Performed By: #### 5 8410-2 ####[facility]ORYCLIA [id number] [address] Comprehensive metabolic 2000 panelon 06-14-2021 Albumin [Mass/Vol] 3.1 g/dL Low 3.9-4.9 [facility] Comment on above: Order Comment: Speci men Type: BLOOD SPECIMEN Performed By: #### 2 4323-8, HSTNT, 2776-05, ####[facility]ORYCLIA [id number] [place], [place] [id number] [place] [address] ALP [Catalytic activity/Vol] 72 U/L Normal 38-113 [facility] Comment on above: Order Comment: Speci men Type: BLOOD SPECIMEN Performed By: #### 2 4323-8, HSTNT, 2776-05, ####[facility]ORYCLIA [id number] [address] ALT With P-5'-P [Catalytic activity/Vol] 57 U/L High 10-54 [facility] Comment on above: Order Comment: Speci men Type: BLOOD SPECIMEN Performed By: #### 2 4323-8, HSTNT, 2776-05, ####[facility]ORYCLIA [id number] [address] Anion gap [Moles/Vol] 9 mmol/L Normal 9-18 [facility] Comment on above: Order Comment: Speci men Type: BLOOD SPECIMEN Performed By: #### 2 4323-8, HSTNT, 2776-05, ####[facility]ORYCLIA [id number] [address] AST With P-5'-P [Catalytic activity/Vol] 33 U/L Normal 14-40 [facility] Comment on above: Order Comment: Speci men Type: BLOOD SPECIMEN Performed By: #### 2 4323-8, HSTNT, 2776-05, ####[facility]ORYCLIA [id number] [address] [facility] Bilirubin [Mass/Vol] 0.5 mg/dL Normal 0.2-1.3 [facility] Comment on above: Order Comment: Speci men Type: BLOOD SPECIMEN Performed By: #### 2 4323-8, HSTNT, 2776-05, ####[facility]ORYCLIA [id number] [address] [place] [facility] Calcium [Mass/Vol] 8.8 mg/dL Normal 8.5-10.2 [facility] Comment on above: Order Comment: Speci men Type: BLOOD SPECIMEN Performed By: #### 2 4323-8, HSTNT, 2776-05, ####[facility]ORYCLIA [id number] [address] [place] [facility] Chloride [Moles/Vol] 124 mmol/L High 97-105 [facility] Comment on above: Order Comment: Speci men Type: BLOOD SPECIMEN Performed By: #### 2 4323-8, HSTNT, 2776-05, ####[facility]ORYCLIA [id number] [address] [place] [facility] CO2 [Moles/Vol] 29 mmol/L Normal 22-30 [facility] Comment on above: Order Comment: Speci men Type: BLOOD SPECIMEN Performed By: #### 2 4323-8, HSTNT, 2776-05, ####[facility]ORYCLIA [id number] [address] [place] Creatinine [Mass/Vol] 0.73 mg/dL Normal 0.73-1.22 [facility] Comment on above: Order Comment: Speci men Type: BLOOD SPECIMEN Performed By: #### 2 4323-8, HSTNT, 2776-05, ####[facility]ORYCLIA [id number] [address] [place] GFR/1.73 sq M.predicted [...] Performed By: #### 2 4323-8, HSTNT, 2776-05, ####[facility]ORYCLIA [id number] [place] [address] [place] Glucose [Mass/Vol] 137 [...] Performed By: #### 2 4323-8, HSTNT, 2776-05, ####[facility]ORYCLIA [id number] [place] [address] [place] Potassium [Moles/Vol] 3.6 mmol/L Low 3.7-5.1 [facility] Comment on above: Order Comment: Speci men Type: BLOOD SPECIMEN Performed By: #### 2 4323-8, HSTNT, 2776-05, ####[facility]ORYCLIA [id number] [address] Protein [Mass/Vol] 5.9 g/dL Low 6.3-8.0 [facility] Comment on above: Order Comment: Speci men Type: BLOOD SPECIMEN Performed By: #### 2 4323-8, HSTNT, 2777-1, 52935-3 ####[facility]ORYCLIA [id number] [address] Sodium [Moles/Vol] 162 mmol/L High 136-144 [facility] Comment on above: Order Comment: Speci men Type: BLOOD SPECIMEN Performed By: #### 2 4323-8, HSTNT, 2776-, ####[facility]ORYCLIA [id number] [address] Urea nitrogen [Mass/Vol] 33 mg/dL High 9-24 [facility] Comment on above: Order Comment: Speci men Type: BLOOD SPECIMEN Performed By: #### 2 4323-8, HSTNT, 2776-05, ####[facility]ORYCLIA [id number] [address] HIGH SENSITIVITY TROPONIN To n 06-14-2021 [...] day MACE. Performed By: #### H STNT ####[facility]ORYCLIA [id number] [address] HIGH SENSITIVITY TAMIKO 22 ng/L High [...] Performed By: #### 2 4323-8, HSTNT, 2776-05, ####[facility]ORYCLIA [id number] [address] Magnesium SerPl-mCncon 06-14 Magnesium [Mass/Vol] 2.9 mg/dL High 1.7-2.3 [facility] Comment on above: Order Comment: Speci men Type: BLOOD SPECIMEN Performed By: #### 2 4323-8, HSTNT, 2776-05, ####[facility]ORYCLIA [id number] [address] Magnesium [Mass/Vol] 3.0 mg/dL High 1.7-2.3 [facility] Comment on above: Order Comment: Speci men Type: BLOOD SPECIMEN Performed By: #### 2 4321-2, 2776-05, ####[facility]ORYCLIA [id number] [address] NURSING PROGon 06-14-2021 NURSING PROG Normal [facility] NUTRITIONon 06-14-2021 NUTRITION Normal [facility] Phosphate SerPl-mCncon 06-14 Phosphate [Mass/Vol] 2.4 mg/dL Low 2.7-4.8 [facility] Comment on above: Order Comment: Speci men Type: BLOOD SPECIMEN Performed By: #### 2 4323-8, HSTNT, 2776-05, ####[facility]ORYCLIA [id number] [address] Phosphate [Mass/Vol] 3.2 mg/dL Normal 2.7-4.8 [facility] Comment on above: Order Comment: Speci men Type: BLOOD SPECIMEN Performed By: #### 2 4321-2, 2776-05, ####[facility]ORY[facility] [id number] [place], [place] [id number] [place] [address] [place] THERAPY NTon 06-14-2021 THERAPY [...] Performed By: #### 2 4321-2, , 2776-05 ####[facility] [id number] [address] [place] OF [facility] Calcium [Mass/Vol] 8.8 mg/dL Normal 8.5-10.2 [facility] Comment on above: Order Comment: Speci men Type: BLOOD SPECIMEN Performed By: #### 2 4321-2, , 2776-05 ####[facility] [id number] [address] [place] Chloride [Moles/Vol] 120 mmol/L High 97-105 [facility] Comment on above: Order Comment: Speci men Type: BLOOD SPECIMEN Performed By: #### 2 4321-2, , 2776-05 ####[facility] [id number] [place] [id number] [place] CO2 [Moles/Vol] 28 mmol/L Normal 22-30 [facility] Comment on above: Order Comment: Speci men Type: BLOOD SPECIMEN Performed By: #### 2 4321-2, , 2776-05 ####[facility] LABORATORYCLIA [id number] [place] [address] [place] Creatinine [Mass/Vol] 0.78 mg/dL Normal 0.73-1.22 [facility] Comment on above: Order Comment: Speci [facility] Type: BLOOD SPECIMEN Performed By: #### 2 4321-2, 40457-4, 2777-1 ####[facility]ATORYCLIA [id number] [place] [address] [place] GFR/1.73 sq M.predicted [...] actual GFR. Performed By: #### 2 4321-2, 30747-8, 277-1 ####[facility] LABORATORYCLIA [id number] [place] [address] [place] Glucose [Mass/Vol] 126 mg/dL High 74-99 [facility] Comment on above: [facility]: [facility] Type: BLOOD SPECIMEN Result Comment: The [...] 2 4321-2, , 2776-05 ####[facility]ORATORYCLIA [id number] [place], [place] [id number] [place] [address] [place] [facility] Potassium [Moles/Vol] 3.6 mmol/L Low 3.7-5.1 [facility] Comment on above: Order Comment: Speci men Type: BLOOD SPECIMEN Performed By: #### 2 4321-2, , 2776-05 ####[facility] LABORATORYCLIA [id number] [place], [place] [id number] [place] [address] [place] Sodium [Moles/Vol] 155 mmol/L High 136-144 [facility] Comment on above: Order Comment: Speci men Type: BLOOD SPECIMEN Performed By: #### 2 1-2, , 2776-05 ####[facility] LABORATORYCLIA [id number] [place] [address] [place] Urea nitrogen [Mass/Vol] 36 mg/dL High 9-24 [facility] Comment on above: Order Comment: Speci men Type: BLOOD SPECIMEN Performed By: #### 2 1-2, , 2776-05 ####[facility] LABORATORYCLIA [id number] [address] STATES OF [facility] Anion gap [Moles/Vol] 6 mmol/L Low 9-18 [facility] Comment on above: Order Comment: Speci men Type: BLOOD SPECIMEN Performed By: #### 2 4321-2, 2776-05, ####[facility]ORATORYCLIA [id number] [place] [address] [place] Calcium [Mass/Vol] 6.5 mg/dL Low 8.5-10.2 [facility] Comment on above: Order Comment: Speci men Type: BLOOD SPECIMEN Performed By: #### 2 4321-2, 2776-05, ####[facility]ORATORYCLIA [id number] [place] [address] [place] Chloride [Moles/Vol] 124 mmol/L High 97-105 [facility] Comment on above: Order Comment: Speci men Type: BLOOD SPECIMEN Performed By: #### 2 4321-2, 2776-05, ####[facility]ORATORYCLIA [id number] [place] [address] [place] CO2 [Moles/Vol] 24 mmol/L Normal 22-30 [facility] Comment on above: Order Comment: Speci men Type: BLOOD SPECIMEN Performed By: #### 2 4321-2, 2776-05, ####[facility] LABORATORYCLIA [id number] [place] [address] [place] Creatinine [Mass/Vol] 0.61 mg/dL Low 0.73-1.22 [facility] Comment on above: Order Comment: Speci men Type: BLOOD SPECIMEN Performed By: #### 2 4321-2, 2776-05, ####[facility]ORATORYCLIA [id number] [address] [place] GFR/1.73 sq M.predicted [...] GFR. Performed By: #### 2 4321-2, 2776-05, ####[facility] LABORATORYCLIA [id number] [place] [address] [place] Glucose [Mass/Vol] 100 [...] 1). Performed By: #### 2 4321-2, 2776-05, ####[facility] LABORATORYCLIA [id number] [address] STATES OF [facility] Potassium [Moles/Vol] 2.7 mmol/L Low 3.7-5.1 [facility] Comment on above: Order Comment: Speci men Type: BLOOD SPECIMEN Performed By: #### 2 4321-2, 2776-05, ####[facility] LABORATORYCLIA [id number] [address] [facility] Sodium [Moles/Vol] 154 mmol/L High 136-144 [facility] Comment on above: Order Comment: Speci men Type: BLOOD SPECIMEN Performed By: #### 2 4321-2, 2776-05, ####[facility] LABORATORYCLIA [id number] [place], [place] [id number] [place] [address] [place] Urea nitrogen [Mass/Vol] 29 mg/dL High 9-24 [facility] Comment on above: Order Comment: Speci men Type: BLOOD SPECIMEN Performed By: #### 2 4321-2, 2776-05, ####[facility] LABORATORYCLIA [id number] [address] OF [facility] CASE MANAGEMon 06-13-2021 CASE MANAGEM Normal [facility] CBC panel Auto (Bld)on 06-13 Erythrocyte distribution width (RBC) [Ratio] 15.9 % High 11.5-15.0 [facility] Comment on above: Order Comment: Speci men Type: BLOOD SPECIMEN Performed By: #### 5 8410-2 ####[facility]ORATORYCLIA [id number] [address] Hematocrit (Bld) [Volume fraction] 34.3 % Low 39.0-51.0 [facility] Comment on above: Order Comment: Speci men Type: BLOOD SPECIMEN Performed By: #### 5 8410-2 ####[facility]ORATORYCLIA [id number] [address] Hemoglobin (Bld) [Mass/Vol] 9.9 g/dL Low 13.0-17.0 [facility] Comment on above: Order Comment: Speci men Type: BLOOD SPECIMEN Performed By: #### 5 8410-2 ####[facility]ORATORYCLIA [id number] [address] MCH (RBC) [Entitic mass] 27.3 pg Normal 26.0-34.0 [facility] Comment on above: Order Comment: Speci men Type: BLOOD SPECIMEN Performed By: #### 5 8410-2 ####[facility]ORATORYCLIA [id number] [address] MCHC (RBC) [Mass/Vol] 28.9 g/dL Low 30.5-36.0 [facility] Comment on above: Order Comment: Speci men Type: BLOOD SPECIMEN Performed By: #### 5 8410-2 ####[facility]ORATORYCLIA [id number] [address] MCV (RBC) [Entitic vol] 94.5 fL Normal 80.0-100.0 [facility] Comment on above: Order Comment: Speci men Type: BLOOD SPECIMEN Performed By: #### 5 8410-2 ####[facility]ORATORYCLIA [id number] [address] Nucleated RBC (Bld) [#/Vol] 10*3/uL Normal <0.01 [facility] Comment on above: Order Comment: Speci men Type: BLOOD SPECIMEN Performed By: #### 5 8410-2 ####[facility]ORATORYCLIA [id number] [address] Platelet mean volume (Bld) [Entitic vol] 11.3 fL Normal 9.0-12.7 [facility] Comment on above: Order Comment: Speci men Type: BLOOD SPECIMEN Performed By: #### 5 8410-2 ####[facility]ORATORYCLIA [id number] [address] Platelets (Bld) [#/Vol] 269 10*3/uL Normal 150-400 [facility] Comment on above: Order Comment: Speci men Type: BLOOD SPECIMEN Performed By: #### 5 8410-2 ####[facility]ORATORYCLIA [id number] [address] RBC (Bld) [#/Vol] 3.63 10*6/uL Low 4.20-6.00 [facility] Comment on above: Order Comment: Speci men Type: BLOOD SPECIMEN Performed By: #### 5 8410-2 ####[facility]ORATORYCLIA [id number] [address] WBC (Bld) [#/Vol] 12.77 10*3/uL High 3.70-11.00 [facility] Comment on above: Order Comment: Speci men Type: BLOOD SPECIMEN Performed By: #### 5 8410-2 ####[facility]ORATORYCLIA [id number] [address] Gas and Carbon monoxide pane l (BldV)on 06-13-2021 Base excess Calc (BldV) [Moles/Vol] 5.7 mmol/L High 0-2 [facility] Comment on above: Order Comment: Speci men Type: VENOUS BLOOD SPECIMEN Performed By: #### 2 4344-4 ####[facility]ORATORYCLIA [id number] [address] Body temperature 99.5 [degF] Normal [facility] Comment on above: Order Comment: Speci men Type: VENOUS BLOOD SPECIMEN Performed By: #### 2 4344-4 ####[facility]ORATORYCLIA [id number] [address] CALCIUM IONIZED, PH CORRECTED 1.24 mmol/L Normal 1.08-1.30 [facility] Comment on above: Order Comment: Speci men Type: VENOUS BLOOD SPECIMEN Performed By: #### 2 4344-4 ####[facility]ORATORYCLIA [id number] [address] Calcium.ionized (BldV) [Mass/Vol] 1.23 mmol/L Normal 1.08-1.30 [facility] Comment on above: Order Comment: Speci men Type: VENOUS BLOOD SPECIMEN Performed By: #### 2 4344-4 ####[facility]ORATORYCLIA [id number] [address] Carboxyhemoglobin (BldV) [Mass fraction] 1.2 % Normal 0.0-2.0 [facility] Comment on above: Order Comment: Speci men Type: VENOUS BLOOD SPECIMEN Result Comment: Carb oxyhemoglobin Reference Range for Smokers: 2.0-8.0% Performed By: #### 2 4344-4 ####[facility]ORATORYCLIA [id number] [address] CO2 (BldV) [Partial pressure] 48 mm[Hg] Normal 42-55 [facility] Comment on above: Order Comment: Speci men Type: VENOUS BLOOD SPECIMEN Performed By: #### 2 4344-4 ####[facility]ORATORYCLIA [id number] [address] CO2 [Moles/Vol] 28.2 mmol/L Normal 25-29 [facility] Comment on above: Order Comment: Speci men Type: VENOUS BLOOD SPECIMEN Performed By: #### 2 4344-4 ####[facility]ORATORYCLIA [id number] [address] CO2 adjusted to patient's actual temperature (BldV) [Partial pressure] 49 mmHg Normal 42-55 [facility] Comment on above: Order Comment: Speci men Type: VENOUS BLOOD SPECIMEN Performed By: #### 2 4344-4 ####[facility]ORATORYCLIA [id number] [address] Glucose [Mass/Vol] 131 mg/dL High 60-105 [facility] Comment on above: Order Comment: Speci men Type: VENOUS BLOOD SPECIMEN Performed By: #### 2 4344-4 ####[facility]ORATORYCLIA [id number] [address] HCO3 (Bld) [Moles/Vol] 30.6 mmol/L High 24-28 [facility] Comment on above: Order Comment: Speci men Type: VENOUS BLOOD SPECIMEN Performed By: #### 2 4344-4 ####[facility]ORATORYCLIA [id number] [address] Hematocrit (Bld) [Volume fraction] 32.8 % Low 39.0-51.0 [facility] Comment on above: Order Comment: Speci men Type: VENOUS BLOOD SPECIMEN Performed By: #### 2 4344-4 ####[facility]ORATORYCLIA [id number] [address] Hemoglobin (Bld) [Mass/Vol] 10.6 g/dL Low 13.0-17.0 [facility] Comment on above: Order Comment: Speci men Type: VENOUS BLOOD SPECIMEN Performed By: #### 2 4344-4 ####[facility]ORATORYCLIA [id number] [address] [place] 6 Liters/min Normal [facility] Comment on above: Order Comment: Speci men Type: VENOUS BLOOD SPECIMEN Performed By: #### 2 4344-4 ####[facility] LABORATORYCLIA [id number] [place], [place] [address] [place] [address] [place] Methemoglobin (Bld) [Mass fraction] 1.0 % Normal 0.0-1.5 [facility] Comment on above: Order Comment: Speci men Type: VENOUS BLOOD SPECIMEN Performed By: #### 2 4344-4 ####[facility]ORATORYCLIA [id number] [address] O2 THERAPY NC = Nasal Cannula Normal [facility] Comment on above: Order Comment: Speci men Type: VENOUS BLOOD SPECIMEN Performed By: #### 2 4344-4 ####[facility]ORATORYCLIA [id number] [address] Oxygen (BldV) [Partial pressure] 42 mm[Hg] Normal 35-45 [facility] Comment on above: Order Comment: Speci men Type: VENOUS BLOOD SPECIMEN Performed By: #### 2 4344-4 ####[facility]ORATORYCLIA [id number] [address] Oxygen adjusted to patient's actual temperature (BldV) [Partial pressure] 43.8 mmHg Normal 35-45 [facility] Comment on above: Order Comment: Speci men Type: VENOUS BLOOD SPECIMEN Performed By: #### 2 4344-4 ####[facility]ORATORYCLIA [id number] [address] [place] Oxygen saturation in Blood 76.7 % Normal 60-85 [facility] Comment on above: Order Comment: Speci men Type: VENOUS BLOOD SPECIMEN Performed By: #### 2 4344-4 ####[facility]ORATORYCLIA [id number] [address] Oxyhemoglobin (BldV) [Mass fraction] 75 % Normal 60-85 [facility] Comment on above: Order Comment: Speci men Type: VENOUS BLOOD SPECIMEN Performed By: #### 2 4344-4 ####[facility]ORATORYCLIA [id number] [address] pH (BldV) 7.42 [pH] Normal 7.32-7.42 [facility] Comment on above: Order Comment: Speci men Type: VENOUS BLOOD SPECIMEN Performed By: #### 2 4344-4 ####[facility]ATORYCLIA [id number] [address] pH adjusted to patient's actual temperature (BldV) 7.41 Normal 7.32-7.42 [facility] Comment on above: Order Comment: Speci men Type: VENOUS BLOOD SPECIMEN Performed By: #### 2 4344-4 ####[facility]ATORYCLIA [id number] [address] Potassium [Moles/Vol] 3.5 mmol/L Normal 3.5-5.0 [facility] Comment on above: Order Comment: Speci men Type: VENOUS BLOOD SPECIMEN Performed By: #### 2 4344-4 ####[facility]ATORYCLIA [id number] [address] STATES OF [facility] Sodium [Moles/Vol] 157 mmol/L High 136-144 [facility] Comment on above: Order Comment: Speci men Type: VENOUS BLOOD SPECIMEN Performed By: #### 2 4344-4 ####[facility]ATORYCLIA [id number] [address] [place] Magnesium SerPl-mCncon 06-13 Magnesium [Mass/Vol] 3.0 mg/dL High 1.7-2.3 [facility] Comment on above: Order Comment: Speci men Type: BLOOD SPECIMEN Performed By: #### 2 4321-2, 40824-2, 2776-05 ####[facility]ATORYCLIA [id number] [address] OF [facility] Magnesium [Mass/Vol] 2.2 mg/dL Normal 1.7-2.3 [facility] Comment on above: Order Comment: Speci men Type: BLOOD SPECIMEN Performed By: #### 2 4321-2, 2776, ####[facility]ATORYCLIA [id number] [place] [address] [place] Phosphate SerPl-mCncon 06-13 Phosphate [Mass/Vol] 2.2 mg/dL Low 2.7-4.8 [facility] Comment on above: Order Comment: Speci men Type: BLOOD SPECIMEN Performed By: #### 2 4321-2, , 2776-05 ####[facility]ATORYCLIA [id number] [place] [address] [place] [facility] Phosphate [Mass/Vol] 1.8 mg/dL Low 2.7-4.8 [facility] Comment on above: Order Comment: Speci men Type: BLOOD SPECIMEN Performed By: #### 2 4321-2, 2776-05, ####[facility]ATORYCLIA [id number] [address] [place] XR CHEST 1V FRONTALon 2021 XR CHEST 1V FRONTAL Normal [facility] ALLIED HEALTHon 06-12-2021 ALLIED HEALTH Normal [facility] BRIEF OP NOTon 06-12-2021 BRIEF OP NOT Normal [facility] Bacteria Fld Culton 06-12-19 22 Bacteria identified Cx Nom (Body fld) CULTURE, BODY FLD: No growth 5 days GRAM STAIN: No organisms seen Moderate Polymorphonuclear leukocytes Normal [facility] Comment on above: Performed By: #### 6 11-4 ####[facility]ATORYCLIA [id number] [place] [address] [place] Basic metabolic 2000 panelon 06-12-2021 Anion gap [Moles/Vol] 6 mmol/L Low 9-18 [facility] Comment on above: Order Comment: Speci men Type: BLOOD SPECIMEN Performed By: #### 2 777-1, 62549-1, ####[facility]ATORYCLIA [id number] [place] [address] [place] Calcium [Mass/Vol] 8.7 mg/dL Normal 8.5-10.2 [facility] Comment on above: Order Comment: Speci men Type: BLOOD SPECIMEN Performed By: #### 2 777-1, 88920-7, ####[facility]ATORYCLIA [id number] [address] Chloride [Moles/Vol] 118 mmol/L High 97-105 [facility] Comment on above: Order Comment: Speci men Type: BLOOD SPECIMEN Performed By: #### 2 777-1, 52747-4, ####[facility]ATORYCLIA [id number] [address] [place] CO2 [Moles/Vol] 28 mmol/L Normal 22-30 [facility] Comment on above: Order Comment: Speci men Type: BLOOD SPECIMEN Performed By: #### 2 777-1, 02740-5, ####[facility]ATORYCLIA [id number] [address] [place] Creatinine [Mass/Vol] 0.77 mg/dL Normal 0.73-1.22 [facility] Comment on above: Order Comment: Speci men Type: BLOOD SPECIMEN Performed By: #### 2 777-1, , ####[facility]ATORYCLIA [id number] [address] [place] GFR/1.73 sq M.predicted [...] GFR. Performed By: #### 2 777-1, , ####[facility]ATORYCLIA [id number] [place] [address] [place] Glucose [Mass/Vol] 116 [...] 1). Performed By: #### 2 777-1, , ####[facility]ATORYCLIA [id number] [place] [address] [place] Potassium [Moles/Vol] 4.0 mmol/L Normal 3.7-5.1 [facility] Comment on above: Order Comment: Speci men Type: BLOOD SPECIMEN Performed By: #### 2 777-1, , ####[facility]ATORYCLIA [id number] [place] [address] [place] Sodium [Moles/Vol] 152 mmol/L High 136-144 [facility] Comment on above: Order Comment: Speci men Type: BLOOD SPECIMEN Performed By: #### 2 777-1, , ####[facility]ATORYCLIA [id number] [place] [address] [place] Urea nitrogen [Mass/Vol] 34 mg/dL High 9-24 [facility] Comment on above: Order Comment: Speci men Type: BLOOD SPECIMEN Performed By: #### 2 777-1, 75516-5, 08475-3 ####[facility]ATORYCLIA [id number] [address] CBC panel Auto (Bld)on 06-12 Erythrocyte distribution width (RBC) [Ratio] 16.1 % High 11.5-15.0 [facility] Comment on above: Order Comment: Speci men Type: BLOOD SPECIMEN Performed By: #### 5 8410-2 ####[facility]ATORYCLIA [id number] [address] Hematocrit (Bld) [Volume fraction] 32.8 % Low 39.0-51.0 [facility] Comment on above: Order Comment: Speci men Type: BLOOD SPECIMEN Performed By: #### 5 8410-2 ####[facility]ATORYCLIA [id number] [address] Hemoglobin (Bld) [Mass/Vol] 9.9 g/dL Low 13.0-17.0 [facility] Comment on above: Order Comment: Speci men Type: BLOOD SPECIMEN Performed By: #### 5 8410-2 ####[facility]ATORYCLIA [id number] [address] MCH (RBC) [Entitic mass] 28.4 pg Normal 26.0-34.0 [facility] Comment on above: Order Comment: Speci men Type: BLOOD SPECIMEN Performed By: #### 5 8410-2 ####[facility]ATORYCLIA [id number] [address] MCHC (RBC) [Mass/Vol] 30.2 g/dL Low 30.5-36.0 [facility] Comment on above: Order Comment: Speci men Type: BLOOD SPECIMEN Performed By: #### 5 8410-2 ####[facility]ATORYCLIA [id number] [address] MCV (RBC) [Entitic vol] 94.3 fL Normal 80.0-100.0 [facility] Comment on above: Order Comment: Speci men Type: BLOOD SPECIMEN Performed By: #### 5 8410-2 ####[facility]ATORYCLIA [id number] [address] Nucleated RBC (Bld) [#/Vol] 10*3/uL Normal <0.01 [facility] Comment on above: Order Comment: Speci men Type: BLOOD SPECIMEN Performed By: #### 5 8410-2 ####[facility]ORYCLIA [id number] [address] Platelet mean volume (Bld) [Entitic vol] 11.2 fL Normal 9.0-12.7 [facility] Comment on above: Order Comment: Speci men Type: BLOOD SPECIMEN Performed By: #### 5 8410-2 ####[facility]ATORYCLIA [id number] [address] Platelets (Bld) [#/Vol] 218 10*3/uL Normal 150-400 [facility] Comment on above: Order Comment: Speci men Type: BLOOD SPECIMEN Performed By: #### 5 8410-2 ####[facility]ORYCLIA [id number] [address] RBC (Bld) [#/Vol] 3.48 10*6/uL Low 4.20-6.00 [facility] Comment on above: Order Comment: Speci men Type: BLOOD SPECIMEN Performed By: #### 5 8410-2 ####[facility]ORYCLIA [id number] [address] WBC (Bld) [#/Vol] 13.33 10*3/uL High 3.70-11.00 [facility] Comment on above: Order Comment: Speci men Type: BLOOD SPECIMEN Performed By: #### 5 8410-2 ####[facility]ORYCLIA [id number] [address] CONSULT PROGon 06-12-2021 CONSULT PROG Normal [facility] CT DRN PLACE PERIT/RETROP FL BIon 06-12-[address] PERIT/RETROP FL BI Normal [facility] HISTORY PHYSICALon HISTORY PHYSICAL Normal [facility] Magnesium SerPl-mCncon 06-12 Magnesium [Mass/Vol] 2.7 mg/dL High 1.7-2.3 [facility] Comment on above: Order Comment: Speci men Type: BLOOD SPECIMEN Performed By: #### 2 777-1, 47552-6, 73395-7 ####[facility]ATORYCLIA [id number] [address] PT panel Coag (PPP)on 2021 INR [...] al. Chest 2012, 141:7S-47SNishimura RA, et al. [facility] 2017, 70: 252-289 Performed By: #### 3 4528-0 ####[facility]ORATORYCLIA [id number] [place] [id number] [facility] PT Coag (PPP) [Time] 11.9 s Normal 9.7-13.0 [facility] Comment on above: Order Comment: Speci men Type: BLOOD SPECIMEN Performed By: #### 3 4528-0 ####[facility]ORYCLIA [id number] [address] Phosphate SerPl-mCncon 06-12 Phosphate [Mass/Vol] 2.2 mg/dL Low 2.7-4.8 [facility] Comment on above: Order Comment: Speci men Type: BLOOD SPECIMEN Performed By: #### 2 777-1, 08387-9, 57296-6 ####[facility]ORYCLIA [id number] [address] XR ABDOMEN 1V SUPINEon 06-12 XR ABDOMEN 1V SUPINE Normal [facility] ALLIED HEALTHon 06-11-2021 ALLIED HEALTH Normal [facility] Bacteria Bld Culton 06-11-19 22 Bacteria identified Cx Nom (Bld) CULTURE, BLOOD: No growth 5 days Normal [facility] Comment on above: Performed By: #### 6 00-7 ####[facility]ORYCLIA [id number] [address] Bacteria identified Cx Nom (Bld) CULTURE, BLOOD: No growth 5 days Normal [facility] Comment on above: Performed By: #### 6 00-7 ####[facility]ORYCLIA [id number] [address] Bacteria Ur Culton 2 Bacteria identified Cx Nom (U) CULTURE, URINE: No growth (<1,000 CFU/ml) [facility] Comment on above: Performed By: #### 6 30-4 ####[facility]ORYCLIA [id number] [address] Basic metabolic 2000 panelon 06-11-2021 Anion gap [Moles/Vol] 9 mmol/L Normal 9-18 [facility] Comment on above: Order Comment: Speci men Type: BLOOD SPECIMEN Performed By: #### 1 9123-9, 2777, 46826-2 ####[facility]ORYCLIA [id number] [address] [place] [facility] Calcium [Mass/Vol] 8.5 mg/dL Normal 8.5-10.2 [facility] Comment on above: Order Comment: Speci men Type: BLOOD SPECIMEN Performed By: #### 1 9123-9, 2777, 52921-7 ####[facility]ORYCLIA [id number] [address] Chloride [Moles/Vol] 118 mmol/L High 97-105 [facility] Comment on above: Order Comment: Speci men Type: BLOOD SPECIMEN Performed By: #### 1 9123-9, 2776-05, ####[facility]ORYCLIA [id number] [address] CO2 [Moles/Vol] 27 mmol/L Normal 22-30 [facility] Comment on above: Order Comment: Speci men Type: BLOOD SPECIMEN Performed By: #### 1 9123-9, 2776-05, ####[facility]ORYCLIA [id number] [address] STATES OF [facility] Creatinine [Mass/Vol] 0.75 mg/dL Normal 0.73-1.22 [facility] Comment on above: Order Comment: Speci men Type: BLOOD SPECIMEN Performed By: #### 1 9123-9, 27711-04, ####[facility] [id number] [address] [place] GFR/1.73 sq M.predicted [...] GFR. Performed By: #### 1 9123-9, 2777-, 93120-6 ####[facility]ORY[facility] [id number] [address] OF [facility] Glucose [Mass/Vol] 142 mg/dL High 74-99 [facility] [...] 1). Performed By: #### 1 9123-9, 2777, 64263-5 ####[facility]ORY[facility] [id number] [address] [place] [facility] Potassium [Moles/Vol] 3.6 mmol/L Low 3.7-5.1 [facility] Comment on above: Order Comment: Speci men Type: BLOOD SPECIMEN Performed By: #### 1 9123-9, 2777, 70089-0 ####[facility]ORY[facility] [id number] [address] [place] [facility] Sodium [Moles/Vol] 154 mmol/L High 136-144 [facility] Comment on above: Order Comment: Speci men Type: BLOOD SPECIMEN Performed By: #### 1 9123-9, 2777-1, 58249-4 ####[facility] [facility]ATORYCLIA [id number] [address] Urea nitrogen [Mass/Vol] 31 mg/dL High 9-24 [facility] Comment on above: Order Comment: Speci men Type: BLOOD SPECIMEN Performed By: #### 1 9123-9, 2777-1, 41871-9 ####[facility]ORYCL[facility] [id number] [address] C diff Tox gens Stl Ql MEGAN+p robeon 06-11-2021 C. difficile toxin genes MEGAN+probe Ql (Stl) Negative Normal Negative for C. difficile toxin by PCR [facility] Comment on above: Order Comment: Speci men Type: STOOL SPECIMEN Performed By: #### 5 4067-4 ####[facility]ATORYCLIA [id number] [address] [place] [facility] CBC W Auto Differential pane l (Bld)on 06-11-2021 Basophils (Bld) [#/Vol] 0.03 10*3/uL Normal <0.11 [facility] Comment on above: Order Comment: Speci men Type: BLOOD SPECIMEN Performed By: #### 5 7021-8 ####[facility]ATORYCLIA [id number] [address] Basophils/100 WBC (Bld) 0.2 % Normal [facility] Comment on above: Order Comment: Speci men Type: BLOOD SPECIMEN Performed By: #### 5 7021-8 ####[facility]ATORYCLIA [id number] [address] Differential cell count method Nom (Bld) Auto Normal [facility] Comment on above: Order Comment: Speci men Type: BLOOD SPECIMEN Performed By: #### 5 7021-8 ####[facility]ATORYCLIA [id number] [address] [place] [facility] Eosinophils (Bld) [#/Vol] 0.19 10*3/uL Normal <0.46 [facility] Comment on above: Order Comment: Speci men Type: BLOOD SPECIMEN Performed By: #### 5 7021-8 ####[facility] LABORATORYCLIA [id number] [address] Eosinophils/100 WBC (Bld) 1.5 % Normal [facility] Comment on above: Order Comment: Speci men Type: BLOOD SPECIMEN Performed By: #### 5 7021-8 ####[facility]ATORYCLIA [id number] [address] Erythrocyte distribution width (RBC) [Ratio] 16.3 % High 11.5-15.0 [facility] Comment on above: Order Comment: Speci men Type: BLOOD SPECIMEN Performed By: #### 5 7021-8 ####[facility]ORATORYCLIA [id number] [address] Hematocrit (Bld) [Volume fraction] 32.1 % Low 39.0-51.0 [facility] Comment on above: Order Comment: Speci men Type: BLOOD SPECIMEN Performed By: #### 5 7021-8 ####[facility]ATORYCLIA [id number] [address] Hemoglobin (Bld) [Mass/Vol] 9.3 g/dL Low 13.0-17.0 [facility] Comment on above: Order Comment: Speci men Type: BLOOD SPECIMEN Performed By: #### 5 7021-8 ####[facility] LABORATORYCLIA [id number] [address] IMMATURE GRAN % 0.6 % Normal [facility] Comment on above: Order Comment: Speci men Type: BLOOD SPECIMEN Performed By: #### 5 7021-8 ####[facility]ORYCLIA [id number] [address] IMMATURE GRAN ABS 0.08 k/uL Normal <0.10 [facility] Comment on above: Order Comment: Speci men Type: BLOOD SPECIMEN Performed By: #### 5 7021-8 ####[facility]ATORYCLIA [id number] [address] Lymphocytes (Bld) [#/Vol] 1.65 10*3/uL Normal 1.00-4.00 [facility] Comment on above: Order Comment: Speci men Type: BLOOD SPECIMEN Performed By: #### 5 7021-8 ####[facility]ATORYCLIA [id number] [address] Lymphocytes/100 WBC (Bld) 12.8 % Normal [facility] Comment on above: Order Comment: Speci men Type: BLOOD SPECIMEN Performed By: #### 5 7021-8 ####[facility]ATORYCLIA [id number] [address] MCH (RBC) [Entitic mass] 27.2 pg Normal 26.0-34.0 [facility] Comment on above: Order Comment: Speci men Type: BLOOD SPECIMEN Performed By: #### 5 7021-8 ####[facility]ATORYCLIA [id number] [address] MCHC (RBC) [Mass/Vol] 29.0 g/dL Low 30.5-36.0 [facility] Comment on above: Order Comment: Speci men Type: BLOOD SPECIMEN Performed By: #### 5 7021-8 ####[facility]ATORYCLIA [id number] [address] MCV (RBC) [Entitic vol] 93.9 fL Normal 80.0-100.0 [facility] Comment on above: Order Comment: Speci men Type: BLOOD SPECIMEN Performed By: #### 5 7021-8 ####[facility]ATORYCLIA [id number] [address] Monocytes (Bld) [#/Vol] 0.68 10*3/uL Normal <0.87 [facility] Comment on above: Order Comment: Speci men Type: BLOOD SPECIMEN Performed By: #### 5 7021-8 ####[facility]ATORYCLIA [id number] [address] Monocytes/100 WBC (Bld) 5.3 % Normal [facility] Comment on above: Order Comment: Speci men Type: BLOOD SPECIMEN Performed By: #### 5 7021-8 ####[facility]ATORYCLIA [id number] [address] Neutrophils (Bld) [#/Vol] 10.22 10*3/uL High 1.45-7.50 [facility] Comment on above: Order Comment: Speci men Type: BLOOD SPECIMEN Performed By: #### 5 7021-8 ####[facility]ORATORYCLIA [id number] [address] Neutrophils/100 WBC (Bld) 79.6 % Normal [facility] Comment on above: Order Comment: Speci men Type: BLOOD SPECIMEN Performed By: #### 5 7021-8 ####[facility]ORATORYCLIA [id number] [address] Nucleated RBC (Bld) [#/Vol] 10*3/uL Normal <0.01 [facility] Comment on above: Order Comment: Speci men Type: BLOOD SPECIMEN Performed By: #### 5 7021-8 ####[facility]ORATORYCLIA [id number] [address] Nucleated RBC/100 WBC (Bld) [Ratio] 0.0 /100 WBC Normal 0.0 [facility] Comment on above: Order Comment: Speci men Type: BLOOD SPECIMEN Performed By: #### 5 7021-8 ####[facility]ORATORYCLIA [id number] [address] Platelet mean volume (Bld) [Entitic vol] 11.1 fL Normal 9.0-12.7 [facility] Comment on above: Order Comment: Speci men Type: BLOOD SPECIMEN Performed By: #### 5 7021-8 ####[facility]ORATORYCLIA [id number] [address] Platelets (Bld) [#/Vol] 188 10*3/uL Normal 150-400 [facility] Comment on above: Order Comment: Speci men Type: BLOOD SPECIMEN Performed By: #### 5 7021-8 ####[facility]ATORYCLIA [id number] [address] RBC (Bld) [#/Vol] 3.42 10*6/uL Low 4.20-6.00 [facility] Comment on above: Order Comment: Speci men Type: BLOOD SPECIMEN Performed By: #### 5 7021-8 ####[facility]ATORYCLIA [id number] [address] WBC (Bld) [#/Vol] 12.85 10*3/uL High 3.70-11.00 [facility] Comment on above: Order Comment: Speci men Type: BLOOD SPECIMEN Performed By: #### 5 7021-8 ####[facility]ATORYCLIA [id number] [address] CBC panel Auto (Bld)on 06-11 Erythrocyte distribution width (RBC) [Ratio] 16.2 % High 11.5-15.0 [facility] Comment on above: Order Comment: Speci men Type: BLOOD SPECIMEN Performed By: #### 5 8410-2 ####[facility]ATORYCLIA [id number] [address] Hematocrit (Bld) [Volume fraction] 34.5 % Low 39.0-51.0 [facility] Comment on above: Order Comment: Speci men Type: BLOOD SPECIMEN Performed By: #### 5 8410-2 ####[facility]ATORYCLIA [id number] [address] Hemoglobin (Bld) [Mass/Vol] 10.3 g/dL Low 13.0-17.0 [facility] Comment on above: Order Comment: Speci men Type: BLOOD SPECIMEN Performed By: #### 5 8410-2 ####[facility]ATORYCLIA [id number] [address] MCH (RBC) [Entitic mass] 28.1 pg Normal 26.0-34.0 [facility] Comment on above: Order Comment: Speci men Type: BLOOD SPECIMEN Performed By: #### 5 8410-2 ####[facility]ATORYCLIA [id number] [address] MCHC (RBC) [Mass/Vol] 29.9 g/dL Low 30.5-36.0 [facility] Comment on above: Order Comment: Speci men Type: BLOOD SPECIMEN Performed By: #### 5 8410-2 ####[facility]ATORYCLIA [id number] [address] MCV (RBC) [Entitic vol] 94.3 fL Normal 80.0-100.0 [facility] Comment on above: Order Comment: Speci men Type: BLOOD SPECIMEN Performed By: #### 5 8410-2 ####[facility]ATORYCLIA [id number] [address] Nucleated RBC (Bld) [#/Vol] 10*3/uL Normal <0.01 [facility] Comment on above: Order Comment: Speci men Type: BLOOD SPECIMEN Performed By: #### 5 8410-2 ####[facility]ATORYCLIA [id number] [address] Platelet mean volume (Bld) [Entitic vol] 10.9 fL Normal 9.0-12.7 [facility] Comment on above: Order Comment: Speci men Type: BLOOD SPECIMEN Performed By: #### 5 8410-2 ####[facility]ATORYCLIA [id number] [address] Platelets (Bld) [#/Vol] 210 10*3/uL Normal 150-400 [facility] Comment on above: Order Comment: Speci men Type: BLOOD SPECIMEN Performed By: #### 5 8410-2 ####[facility]ORATORYCLIA [id number] [place], [place] [address] [place] [address] [place] [facility] RBC (Bld) [#/Vol] 3.66 10*6/uL Low 4.20-6.00 [facility] Comment on above: Order Comment: Speci men Type: BLOOD SPECIMEN Performed By: #### 5 8410-2 ####[facility]ATORYCLIA [id number] [address] [place] [facility] WBC (Bld) [#/Vol] 13.03 10*3/uL High 3.70-11.00 [facility] Comment on above: Order Comment: Speci men Type: BLOOD SPECIMEN Performed By: #### 5 8410-2 ####[facility]ATORYCLIA [id number] [address] CONSULT PROGon 06-11-2021 CONSULT PROG Normal [facility] [...] SPECIMEN Performed By: #### 1 9123-9, 2777-1, 64279-9 ####[facility]ATORYCLIA [id number] [address] Phosphate SerPl-mCncon 06-11 Phosphate [Mass/Vol] 2.5 mg/dL Low 2.7-4.8 [facility] Comment on above: Order Comment: Speci men Type: BLOOD SPECIMEN Performed By: #### 1 9123-9, 2777-1, 70099-7 ####[facility]ORATORYCLIA [id number] [address] [facility] Basic metabolic 2000 panelon 06-10-2021 Anion gap [Moles/Vol] 7 mmol/L Low 9-18 [facility] Comment on above: Order Comment: Speci men Type: BLOOD SPECIMEN Performed By: #### 2 777-1, 84626-2, , HFP ####[facility] LABORATORYCLIA [id number] [address] [place] [facility] Calcium [Mass/Vol] 8.5 mg/dL Normal 8.5-10.2 [facility] Comment on above: Order Comment: Speci men Type: BLOOD SPECIMEN Performed By: #### 2 777-1, 40717-6, , HFP ####[facility]ATORYCLIA [id number] [address] [place] [facility] Chloride [Moles/Vol] 118 mmol/L High 97-105 [facility] Comment on above: Order Comment: Speci men Type: BLOOD SPECIMEN Performed By: #### 2 777-1, 67914-2, , HFP ####[facility]ATORYCLIA [id number] [address] [place] CO2 [Moles/Vol] 26 mmol/L Normal 22-30 [facility] Comment on above: Order Comment: Speci men Type: BLOOD SPECIMEN Performed By: #### 2 777-1, 26716-1, , HFP ####[facility]ATORYCLIA [id number] [address] [place] Creatinine [Mass/Vol] 0.70 mg/dL Low 0.73-1.22 [facility] Comment on above: Order Comment: Speci men Type: BLOOD SPECIMEN Performed By: #### 2 777-1, 39253-8, , HFP ####[facility]ORATORYCLIA [id number] [address] [place] GFR/1.73 sq M.predicted [...] actual GFR. Performed By: #### 2 777-1, 59227-8, , [facility] ####[facility]ORATORYCLIA [id number] [place] [address] [place] Glucose [Mass/Vol] 135 mg/dL High 74-99 [facility] Comment on above: Order Comment: [facility] Type: BLOOD SPECIMEN Result Comment: The [...] 2016.39(Suppl 1). Performed By: #### 2 777-1, 22265-9, , [facility] ####[facility]ATORYCLIA [id number] [place] [address] [place] Potassium [Moles/Vol] 3.9 mmol/L Normal 3.7-5.1 [facility] Comment on above: Order Comment: Speci [facility] Type: BLOOD SPECIMEN Performed By: #### 2 777-1, 11550-4, , [facility] ####[facility]ORATORYCLIA [id number] [place], [place] [address] [place] [address] Sodium [Moles/Vol] 151 mmol/L High 136-144 [facility] Comment on above: Order Comment: Speci men Type: BLOOD SPECIMEN Performed By: #### 2 777-1, 73777-8, , [facility] ####[facility]ORATORYCLIA [id number] [place] [id number] [facility] Urea nitrogen [Mass/Vol] 27 mg/dL High 9-24 [facility] Comment on above: Order Comment: Speci men Type: BLOOD SPECIMEN Performed By: #### 2 777-1, 19626-5, , [facility] ####[facility]ORATORYCLIA [id number] [address] CASE MANAGEMon 06-10-2021 CASE MANAGEM Normal [facility] CBC panel Auto (Bld)on 06-10 Erythrocyte distribution width (RBC) [Ratio] 16.2 % High 11.5-15.0 [facility] Comment on above: Order Comment: Speci men Type: BLOOD SPECIMEN Performed By: #### 5 8410-2 ####[facility]ATORYCLIA [id number] [address] Hematocrit (Bld) [Volume fraction] 34.8 % Low 39.0-51.0 [facility] Comment on above: Order Comment: Speci men Type: BLOOD SPECIMEN Performed By: #### 5 8410-2 ####[facility]ATORYCLIA [id number] [address] Hemoglobin (Bld) [Mass/Vol] 10.2 g/dL Low 13.0-17.0 [facility] Comment on above: Order Comment: Speci men Type: BLOOD SPECIMEN Performed By: #### 5 8410-2 ####[facility]ORATORYCLIA [id number] [address] [place] MCH (RBC) [Entitic mass] 27.1 pg Normal 26.0-34.0 [facility] Comment on above: Order Comment: Speci men Type: BLOOD SPECIMEN Performed By: #### 5 8410-2 ####[facility]ATORYCLIA [id number] [address] MCHC (RBC) [Mass/Vol] 29.3 g/dL Low 30.5-36.0 [facility] Comment on above: Order Comment: Speci men Type: BLOOD SPECIMEN Performed By: #### 5 8410-2 ####[facility]ATORYCLIA [id number] [address] MCV (RBC) [Entitic vol] 92.6 fL Normal 80.0-100.0 [facility] Comment on above: Order Comment: Speci men Type: BLOOD SPECIMEN Performed By: #### 5 8410-2 ####[facility]ATORYCLIA [id number] [address] Nucleated RBC (Bld) [#/Vol] 10*3/uL Normal <0.01 [facility] Comment on above: Order Comment: Speci men Type: BLOOD SPECIMEN Performed By: #### 5 8410-2 ####[facility]ATORYCLIA [id number] [address] Platelet mean volume (Bld) [Entitic vol] 10.4 fL Normal 9.0-12.7 [facility] Comment on above: Order Comment: Speci men Type: BLOOD SPECIMEN Performed By: #### 5 8410-2 ####[facility]ATORYCLIA [id number] [address] Platelets (Bld) [#/Vol] 206 10*3/uL Normal 150-400 [facility] Comment on above: Order Comment: Speci men Type: BLOOD SPECIMEN Performed By: #### 5 8410-2 ####[facility]ATORYCLIA [id number] [address] RBC (Bld) [#/Vol] 3.76 10*6/uL Low 4.20-6.00 [facility] Comment on above: Order Comment: Speci men Type: BLOOD SPECIMEN Performed By: #### 5 8410-2 ####[facility]ATORYCLIA [id number] [address] WBC (Bld) [#/Vol] 11.36 10*3/uL High 3.70-11.00 [facility] Comment on above: Order Comment: Speci men Type: BLOOD SPECIMEN Performed By: #### 5 8410-2 ####[facility]ATORYCLIA [id number] [address] HEPATIC FUNCTION PNLon 06-10 Albumin [Mass/Vol] 3.1 g/dL Low 3.9-4.9 [facility] Comment on above: Order Comment: Speci men Type: BLOOD SPECIMEN Performed By: #### 2 777-1, 44137-9, , HFP ####[facility]ATORYCLIA [id number] [address] ALP [Catalytic activity/Vol] 73 U/L Normal 38-113 [facility] Comment on above: Order Comment: Speci men Type: BLOOD SPECIMEN Performed By: #### 2 777-1, 75138-5, , HFP ####[facility] LABORATORYCLIA [id number] [address] ALT With P-5'-P [Catalytic activity/Vol] 64 U/L High 10-54 [facility] Comment on above: Order Comment: Speci men Type: BLOOD SPECIMEN Performed By: #### 2 777-1, 67816-0, , HFP ####[facility]ATORYCLIA [id number] [address] AST With P-5'-P [Catalytic activity/Vol] 44 U/L High 14-40 [facility] Comment on above: Order Comment: Speci men Type: BLOOD SPECIMEN Performed By: #### 2 777-1, 49434-7, , HFP ####[facility]ATORYCLIA [id number] [address] Bilirubin [Mass/Vol] 0.5 mg/dL Normal 0.2-1.3 [facility] Comment on above: Order Comment: Speci men Type: BLOOD SPECIMEN Performed By: #### 2 777-1, 26198-6, , [facility] ####[facility]ATORYCLIA [id number] [address] Bilirubin.conjugated [Mass/Vol] mg/dL Normal <0.2 [facility] Comment on above: Order Comment: Speci men Type: BLOOD SPECIMEN Performed By: #### 2 777-1, 33886-2, , [facility] ####[facility]ATORYCLIA [id number] [address] Protein [Mass/Vol] 5.7 g/dL Low 6.3-8.0 [facility] Comment on above: Order Comment: Speci men Type: BLOOD SPECIMEN Performed By: #### 2 777-1, 65675-7, , [facility] ####[facility]ORATORYCLIA [id number] [address] LEVETIRACETAMon 06-10-2021 levETIRAcetam [Mass/Vol] 57.7 ug/mL [...] its performance characteristics determined by [facility]'s Isrrael Perez [facility] [place] ([facility]). It has not been cleared or approved by the FDA. [facility] is regulated under CLIA as qualified to perform high complexity testing. This test is used for clinical purposes. It should not be regarded as investigational or for research. Performed By: #### L DARY ####[facility] LABCLIA [id number] [id number] [address] [place] Magnesium SerPl-mCncon 06-10 Magnesium [Mass/Vol] 2.7 mg/dL High 1.7-2.3 [facility] Comment on above: Order Comment: Speci men Type: BLOOD SPECIMEN Performed By: #### 2 777-1, 28256-3, , [facility] ####[facility]ORATORYCLIA [id number] [place] [address] [place] Phosphate SerPl-ncon 06-10 Phosphate [Mass/Vol] 1.8 mg/dL Low 2.7-4.8 [facility] Comment on above: Order Comment: Speci men Type: BLOOD SPECIMEN Performed By: #### 2 777-1, 30047-6, , [facility] ####[facility]ORATORYCLIA [id number] [place] [address] [place] ALLIED HEALTHon 06-09-2021 [...] SPECIMEN Performed By: #### 2 4321-2, 2776-, ####[facility]ATORYCLIA [id number] [place] [address] [place] Calcium [Mass/Vol] 8.3 mg/dL Low 8.5-10.2 [facility] Comment on above: Order Comment: Speci men Type: BLOOD SPECIMEN Performed By: #### 2 4321-2, 2776-, ####[facility]ORATORYCLIA [id number] [place] [address] [place] Chloride [Moles/Vol] 116 mmol/L High 97-105 [facility] Comment on above: Order Comment: Speci men Type: BLOOD SPECIMEN Performed By: #### 2 4321-2, 2776-05, ####[facility]ATORYCLIA [id number] [place] [address] [place] CO2 [Moles/Vol] 27 mmol/L Normal 22-30 [facility] Comment on above: Order Comment: Speci men Type: BLOOD SPECIMEN Performed By: #### 2 4321-2, 2776-05, ####[facility]ATORYCLIA [id number] [address] [place] [facility] Creatinine [Mass/Vol] 0.70 mg/dL Low 0.73-1.22 [facility] Comment on above: Order Comment: Speci men Type: BLOOD SPECIMEN Performed By: #### 2 4321-2, 2776-05, ####[facility]ATORYCLIA [id number] [place] [address] [place] GFR/1.73 sq M.predicted [...] GFR. Performed By: #### 2 4321-2, 2777, ####[facility]ATORYCLIA [id number] [place] [address] [place] Glucose [Mass/Vol] 123 [...] 1). Performed By: #### 2 4321-2, 2776-05, ####[facility]ATORYCLIA [id number] [address] [place] Potassium [Moles/Vol] 3.5 mmol/L Low 3.7-5.1 [facility] Comment on above: Order Comment: Speci men Type: BLOOD SPECIMEN Performed By: #### 2 4321-2, 2776-05, ####[facility]ATORYCLIA [id number] [address] [place] Sodium [Moles/Vol] 151 mmol/L High 136-144 [facility] Comment on above: Order Comment: Speci men Type: BLOOD SPECIMEN Performed By: #### 2 4321-2, 2776-05, ####[facility]ATORYCLIA [id number] [place] [address] [place] Urea nitrogen [Mass/Vol] 39 mg/dL High 9-24 [facility] Comment on above: Order Comment: Speci men Type: BLOOD SPECIMEN Performed By: #### 2 4321-2, 2776-05, ####[facility]ATORYCLIA [id number] [address] CBC panel Auto (Bld)on 06-09 Erythrocyte distribution width (RBC) [Ratio] 16.2 % High 11.5-15.0 [facility] Comment on above: Order Comment: Speci men Type: BLOOD SPECIMEN Performed By: #### 5 8410-2 ####[facility]ATORYCLIA [id number] [address] Hematocrit (Bld) [Volume fraction] 33.7 % Low 39.0-51.0 [facility] Comment on above: Order Comment: Speci men Type: BLOOD SPECIMEN Performed By: #### 5 8410-2 ####[facility]ATORYCLIA [id number] [address] Hemoglobin (Bld) [Mass/Vol] 10.2 g/dL Low 13.0-17.0 [facility] Comment on above: Order Comment: Speci men Type: BLOOD SPECIMEN Performed By: #### 5 8410-2 ####[facility]ATORYCLIA [id number] [address] MCH (RBC) [Entitic mass] 27.4 pg Normal 26.0-34.0 [facility] Comment on above: Order Comment: Speci men Type: BLOOD SPECIMEN Performed By: #### 5 8410-2 ####[facility]ATORYCLIA [id number] [address] MCHC (RBC) [Mass/Vol] 30.3 g/dL Low 30.5-36.0 [facility] Comment on above: Order Comment: Speci men Type: BLOOD SPECIMEN Performed By: #### 5 8410-2 ####[facility]ATORYCLIA [id number] [address] MCV (RBC) [Entitic vol] 90.6 fL Normal 80.0-100.0 [facility] Comment on above: Order Comment: Speci men Type: BLOOD SPECIMEN Performed By: #### 5 8410-2 ####[facility]ATORYCLIA [id number] [address] Nucleated RBC (Bld) [#/Vol] 10*3/uL Normal <0.01 [facility] Comment on above: Order Comment: Speci men Type: BLOOD SPECIMEN Performed By: #### 5 8410-2 ####[facility]AT[facility] [id number] [address] Platelet mean volume (Bld) [Entitic vol] 10.3 fL Normal 9.0-12.7 [facility] Comment on above: Order Comment: Speci men Type: BLOOD SPECIMEN Performed By: #### 5 8410-2 ####[facility] [id number] [address] Platelets (Bld) [#/Vol] 219 10*3/uL Normal 150-400 [facility] Comment on above: Order Comment: Speci men Type: BLOOD SPECIMEN Performed By: #### 5 8410-2 ####[facility] [id number] [address] RBC (Bld) [#/Vol] 3.72 10*6/uL Low 4.20-6.00 [facility] Comment on above: Order Comment: Speci men Type: BLOOD SPECIMEN Performed By: #### 5 8410-2 ####[facility] [id number] [address] [facility] WBC (Bld) [#/Vol] 13.02 10*3/uL High 3.70-11.00 [facility] Comment on above: Order Comment: Speci men Type: BLOOD SPECIMEN Performed By: #### 5 8410-2 ####[facility] [id number] [address] CONSULT PROGon 06-09-2021 CONSULT PROG Normal [facility] CONSULT PROG Normal [facility] CT BRAIN WO IVCONon 06-09-[address] BRAIN WO IVCON Normal [facility] Magnesium SerPl-mCncon 06-09 Magnesium [Mass/Vol] 2.8 mg/dL High 1.7-2.3 [facility] [facility] Comment on above: Order Comment: Speci men Type: BLOOD SPECIMEN Performed By: #### 2 4321-2, 2777-1, 39893-2 ####[facility] [id number] [address] NURSING PROGon 06-09-2021 NURSING PROG Normal [facility] NUTRITIONon 06-09-2021 NUTRITION Normal [facility] PT EDon 06-09-2021 PT ED Normal [facility] Phosphate SerPl-mCncon 06-09 Phosphate [Mass/Vol] 2.2 mg/dL Low 2.7-4.8 [facility] Comment on above: Order Comment: Speci men Type: BLOOD SPECIMEN Performed By: #### 2 4321-2, 2777-1, ####[facility] [id number] [address] Vancomycin random [Mass/Vol] on 06-09-2021 Vancomycin [Mass/Vol] 18.9 ug/mL Normal 10.0-20.0 [facility] Comment on above: Order Comment: Speci men Type: BLOOD SPECIMEN Result Comment: Refe rence ranges and high/low indicator flags are provided as general guidelines only. The treating physician must determine appropriate target levels/dosing based on the specific clinical situation. Performed By: #### 4 091-5 ####[facility] [id number] [address] XR ABD 2V SUPINE W UPR/DECUB [...] 1 Rare Staphylococcus saccharolyticus Identification performed by [facility] See scanned document for susceptibility report Normal [facility] Comment on above: Performed By: #### 6 462-6 635-3 ####[facility]ORYCLIA [id number] [place] [address] [place] Bacteria Wnd Culton 06-08-19 22 Bacteria identified Cx Nom (Wound) CULTURE, INTRAOPERATIVE HARDWARE: No growth 5 days GRAM STAIN: Not performed on specimen type Normal [facility] Comment on above: Performed By: #### 6 462-6 635-3 ####[facility]ORY[facility] [id number] [place] [address] [place] Basic metabolic 2000 panelon 06-08-2021 Anion gap [Moles/Vol] 9 mmol/L Normal 9-18 [facility] Comment on above: Order Comment: Speci men Type: BLOOD SPECIMEN Performed By: #### 2 4321-2, 2776-05, ####[facility]ORY[facility] [id number] [place] [address] [place] Calcium [Mass/Vol] 8.7 mg/dL Normal 8.5-10.2 [facility] Comment on above: Order Comment: Speci men Type: BLOOD SPECIMEN Performed By: #### 2 4321-2, 2776-05, ####[facility]ORYCLIA [id number] [place] [address] [place] Chloride [Moles/Vol] 113 mmol/L High 97-105 [facility] Comment on above: Order Comment: Speci men Type: BLOOD SPECIMEN Performed By: #### 2 4321-2, 2776-05, ####[facility]ORYCLIA [id number] [place], [place] [id number] [place] [address] [place] CO2 [Moles/Vol] 26 mmol/L Normal 22-30 [facility] Comment on above: Order Comment: Speci men Type: BLOOD SPECIMEN Performed By: #### 2 4321-2, 2776-05, ####[facility]ORY[facility] [id number] [address] [place] Creatinine [Mass/Vol] 0.68 mg/dL Low 0.73-1.22 [facility] Comment on above: Order Comment: Speci men Type: BLOOD SPECIMEN Performed By: #### 2 4321-2, 2776-05, ####[facility]ORYCLIA [id number] [address] [place] GFR/1.73 sq M.predicted [...] GFR. Performed By: #### 2 4321-2, 2776-05, ####[facility]ORYCLIA [id number] [place], [place] [id number] [place] [address] [place] Glucose [Mass/Vol] 146 mg/dL [...] 1). Performed By: #### 2 4321-2, 2776-05, ####[facility]ORYCLIA [id number] [address] STATES OF [facility] Potassium [Moles/Vol] 3.6 mmol/L Low 3.7-5.1 [facility] Comment on above: Order Comment: Speci men Type: BLOOD SPECIMEN Performed By: #### 2 4321-2, 2776-05, ####[facility]ORYCLIA [id number] [address] STATES OF [facility] Sodium [Moles/Vol] 148 mmol/L High 136-144 [facility] Comment on above: Order Comment: Speci men Type: BLOOD SPECIMEN Performed By: #### 2 4321-2, 2776-05, ####[facility]ORYCLIA [id number] [address] [place] Urea nitrogen [Mass/Vol] 36 mg/dL High 9-24 [facility] Comment on above: Order Comment: Speci men Type: BLOOD SPECIMEN Performed By: #### 2 4321-2, 2776-05, ####[facility]ORYCLIA [id number] [address] [place] CASE MANAGEMon 02-02-2022 CASE MANAGEM Normal [facility] CBC panel Auto (Bld)on 06-08 Erythrocyte distribution width (RBC) [Ratio] 16.0 % High 11.5-15.0 [facility] Comment on above: Order Comment: Speci men Type: BLOOD SPECIMEN Performed By: #### 5 8410-2 ####[facility]ORYCL[facility] [id number] [address] Hematocrit (Bld) [Volume fraction] 38.4 % Low 39.0-51.0 [facility] Comment on above: Order Comment: Speci men Type: BLOOD SPECIMEN Performed By: #### 5 8410-2 ####[facility]CL[facility] [id number] [address] Hemoglobin (Bld) [Mass/Vol] 12.1 g/dL Low 13.0-17.0 [facility] Comment on above: Order Comment: Speci men Type: BLOOD SPECIMEN Performed By: #### 5 8410-2 ####[facility] [id number] [address] MCH (RBC) [Entitic mass] 28.3 pg Normal 26.0-34.0 [facility] Comment on above: Order Comment: Speci men Type: BLOOD SPECIMEN Performed By: #### 5 8410-2 ####[facility]CL[facility] [id number] [address] MCHC (RBC) [Mass/Vol] 31.5 g/dL Normal 30.5-36.0 [facility] Comment on above: Order Comment: Speci men Type: BLOOD SPECIMEN Performed By: #### 5 8410-2 ####[facility]CL[facility] [id number] [address] MCV (RBC) [Entitic vol] 89.9 fL Normal 80.0-100.0 [facility] Comment on above: Order Comment: Speci men Type: BLOOD SPECIMEN Performed By: #### 5 8410-2 ####[facility]ORYCLIA [id number] [address] Nucleated RBC (Bld) [#/Vol] 10*3/uL Normal <0.01 [facility] Comment on above: Order Comment: Speci men Type: BLOOD SPECIMEN Performed By: #### 5 8410-2 ####[facility]ORYCL[facility] [id number] [address] Platelet mean volume (Bld) [Entitic vol] 10.3 fL Normal 9.0-12.7 [facility] Comment on above: Order Comment: Speci men Type: BLOOD SPECIMEN Performed By: #### 5 8410-2 ####[facility]ORYCLIA [id number] [address] Platelets (Bld) [#/Vol] 236 10*3/uL Normal 150-400 [facility] Comment on above: Order Comment: Speci men Type: BLOOD SPECIMEN Performed By: #### 5 8410-2 ####[facility]ORYCLIA [id number] [address] RBC (Bld) [#/Vol] 4.27 10*6/uL Normal 4.20-6.00 [facility] Comment on above: Order Comment: Speci men Type: BLOOD SPECIMEN Performed By: #### 5 8410-2 ####[facility]ORYCL[facility] [id number] [address] WBC (Bld) [#/Vol] 11.06 10*3/uL High 3.70-11.00 [facility] Comment on above: Order Comment: Speci men Type: BLOOD SPECIMEN Performed By: #### 5 8410-2 ####[facility]ORYCLIA [id number] [address] CONSULT PROGon 06-08-2021 CONSULT PROG Normal [facility] CT BRAIN WO IVCONon 06-08-19 CT BRAIN WO IVCON Normal [facility] Magnesium SerPl-mCncon 02-02 -2022 Magnesium [Mass/Vol] 2.8 mg/dL High 1.7-2.3 [facility] Comment on above: Order Comment: Speci men Type: BLOOD SPECIMEN Performed By: #### 2 4321-2, 2777-1, 82981-3 ####[facility]ORYCLIA [id number] [address] Microorganism Spec Culton Microorganism identified Cx Nom (Unsp spec) CULTURE, FUNGAL: No Fungus isolated after 28 days FUNGAL SMEAR: No fungus seen Normal [facility] Comment on above: Performed By: #### 1 1475-1 ####[facility]ORYCLIA [id number] [address] NURSING PROGon 06-08-2021 NURSING PROG Normal [facility] [...] 70: 252-289 Performed By: #### 3 4528-0, 45549-5 ####[facility]ORATORYCLIA [id number] [place], [place] [address] [place] [address] OF [facility] PT Coag (PPP) [Time] 11.9 s Normal 9.7-13.0 [facility] Comment on above: Order Comment: Speci men Type: BLOOD SPECIMEN Performed By: #### 3 4528-0, 46782-4 ####[facility]ORATORYCLIA [id number] [address] OF [facility] Phosphate SerPl-mCncon 06-08 Phosphate [Mass/Vol] 2.3 mg/dL Low 2.7-4.8 [facility] Comment on above: Order Comment: Speci men Type: BLOOD SPECIMEN Performed By: #### 2 4321-2, 2777-1, 19721-4 ####[facility]CL[facility] [id number] [address] aPTT PPPon 06-08-2021 aPTT Coag (PPP) [Time] 24.2 s Normal 23.0-32.4 [facility] Comment on above: Order Comment: Speci men Type: BLOOD SPECIMEN Performed By: #### 3 4528-0, 85188-4 ####[facility]CLIA [id number] [address] OF [facility] ALLIED HEALTHon 06-07-2021 ALLIED HEALTH Normal [facility] [...] on above: Performed By: #### 6 06-4 ####[facility]ORYCL[facility] [id number] [address] OF [facility] Basic metabolic 2000 panelon 06-07-2021 Anion gap [Moles/Vol] 9 mmol/L Normal 9-18 [facility] Comment on above: Order Comment: Speci men Type: BLOOD SPECIMEN Performed By: #### 1 9123-9, 27711-04, 28009-5 ####[facility]ORYCLIA [id number] [address] Calcium [Mass/Vol] 8.8 mg/dL Normal 8.5-10.2 [facility] Comment on above: Order Comment: Speci men Type: BLOOD SPECIMEN Performed By: #### 1 9123-9, 2776-05, 78542-4 ####[facility]ORYCLIA [id number] [address] OF [facility] Chloride [Moles/Vol] 111 mmol/L High 97-105 [facility] Comment on above: Order Comment: Speci men Type: BLOOD SPECIMEN Performed By: #### 1 9123-9, 2776-05, 89376-9 ####[facility]CL[facility] [id number] [address] STATES [place] [facility] CO2 [Moles/Vol] 27 mmol/L Normal 22-30 [facility] Comment on above: Order Comment: Speci men Type: BLOOD SPECIMEN Performed By: #### 1 9123-9, 2776-05, 34535-9 ####[facility]CL[facility] [id number] [address] OF [facility] Creatinine [Mass/Vol] 0.66 mg/dL Low 0.73-1.22 [facility] Comment on above: Order Comment: Speci men Type: BLOOD SPECIMEN Performed By: #### 1 9123-9, 27711-04, ####[facility]ORYCLIA [id number] [place] [address] [place] GFR/1.73 sq M.predicted [...] GFR. Performed By: #### 1 9123-9, 2777-, 10392-8 ####[facility]ORYCLIA [id number] [place] [address] [place] Glucose [Mass/Vol] 123 [...] 1). Performed By: #### 1 9123-9, 2777, 12068-6 ####[facility]ORYCLIA [id number] [address] STATES [place] [facility] Potassium [Moles/Vol] 3.6 mmol/L Low 3.7-5.1 [facility] Comment on above: Order Comment: Speci men Type: BLOOD SPECIMEN Performed By: #### 1 9123-9, 2777, 39544-7 ####[facility]ORYCLIA [id number] [address] [place] Sodium [Moles/Vol] 147 mmol/L High 136-144 [facility] Comment on above: Order Comment: Speci men Type: BLOOD SPECIMEN Performed By: #### 1 9123-9, 2777-1, 24813-3 ####[facility]ORYCLIA [id number] [address] Urea nitrogen [Mass/Vol] 30 mg/dL High 9-24 [facility] Comment on above: Order Comment: Speci men Type: BLOOD SPECIMEN Performed By: #### 1 9123-9, 2777-1, 04181-0 ####[facility]ORYCLIA [id number] [address] CBC W Auto Differential pane l (Bld)on 06-07-2021 Basophils (Bld) [#/Vol] 10*3/uL Normal <0.11 [facility] Comment on above: Order Comment: Speci men Type: BLOOD SPECIMEN Performed By: #### 5 7021-8 ####[facility]CLIA [id number] [address] Basophils/100 WBC (Bld) 0.2 % Normal [facility] Comment on above: Order Comment: Speci men Type: BLOOD SPECIMEN Performed By: #### 5 7021-8 ####[facility]CLIA [id number] [address] Differential cell count method Nom (Bld) Auto Normal [facility] Comment on above: Order Comment: Speci men Type: BLOOD SPECIMEN Performed By: #### 5 7021-8 ####[facility]CLIA [id number] [address] Eosinophils (Bld) [#/Vol] 0.06 10*3/uL Normal <0.46 [facility] Comment on above: Order Comment: Speci men Type: BLOOD SPECIMEN Performed By: #### 5 7021-8 ####[facility]ORYCLIA [id number] [address] Eosinophils/100 WBC (Bld) 0.6 % Normal [facility] Comment on above: Order Comment: Speci men Type: BLOOD SPECIMEN Performed By: #### 5 7021-8 ####[facility]ATORYCLIA [id number] [address] Erythrocyte distribution width (RBC) [Ratio] 15.8 % High 11.5-15.0 [facility] Comment on above: Order Comment: Speci men Type: BLOOD SPECIMEN Performed By: #### 5 7021-8 ####[facility]ORATORYCLIA [id number] [address] Hematocrit (Bld) [Volume fraction] 40.4 % Normal 39.0-51.0 [facility] Comment on above: Order Comment: Speci men Type: BLOOD SPECIMEN Performed By: #### 5 7021-8 ####[facility]ATORYCLIA [id number] [address] Hemoglobin (Bld) [Mass/Vol] 12.4 g/dL Low 13.0-17.0 [facility] Comment on above: Order Comment: Speci men Type: BLOOD SPECIMEN Performed By: #### 5 7021-8 ####[facility]CLIA [id number] [address] IMMATURE GRAN % 0.7 % Normal [facility] Comment on above: Order Comment: Speci men Type: BLOOD SPECIMEN Performed By: #### 5 7021-8 ####[facility]ORYCLIA [id number] [address] IMMATURE GRAN ABS 0.07 k/uL Normal <0.10 [facility] Comment on above: Order Comment: Speci men Type: BLOOD SPECIMEN Performed By: #### 5 7021-8 ####[facility]ORYCLIA [id number] [address] Lymphocytes (Bld) [#/Vol] 1.43 10*3/uL Normal 1.00-4.00 [facility] Comment on above: Order Comment: Speci men Type: BLOOD SPECIMEN Performed By: #### 5 7021-8 ####[facility]ORYCLIA [id number] [address] Lymphocytes/100 WBC (Bld) 14.1 % Normal [facility] Comment on above: Order Comment: Speci men Type: BLOOD SPECIMEN Performed By: #### 5 7021-8 ####[facility]ORYCLIA [id number] [address] MCH (RBC) [Entitic mass] 27.6 pg Normal 26.0-34.0 [facility] Comment on above: Order Comment: Speci men Type: BLOOD SPECIMEN Performed By: #### 5 7021-8 ####[facility] [id number] [address] MCHC (RBC) [Mass/Vol] 30.7 g/dL Normal 30.5-36.0 [facility] Comment on above: Order Comment: Speci men Type: BLOOD SPECIMEN Performed By: #### 5 7021-8 ####[facility]CLIA [id number] [address] MCV (RBC) [Entitic vol] 89.8 fL Normal 80.0-100.0 [facility] Comment on above: Order Comment: Speci men Type: BLOOD SPECIMEN Performed By: #### 5 7021-8 ####[facility]IA [id number] [address] Monocytes (Bld) [#/Vol] 0.82 10*3/uL Normal <0.87 [facility] Comment on above: Order Comment: Speci men Type: BLOOD SPECIMEN Performed By: #### 5 7021-8 ####[facility]ORYCLIA [id number] [address] Monocytes/100 WBC (Bld) 8.1 % Normal [facility] Comment on above: Order Comment: Speci men Type: BLOOD SPECIMEN Performed By: #### 5 7021-8 ####[facility]ORYCLIA [id number] [place] [address] Neutrophils (Bld) [#/Vol] 7.74 10*3/uL High 1.45-7.50 [facility] Comment on above: Order Comment: Speci men Type: BLOOD SPECIMEN Performed By: #### 5 7021-8 ####[facility]IA [id number] [address] Neutrophils/100 WBC (Bld) 76.3 % Normal [facility] Comment on above: Order Comment: Speci men Type: BLOOD SPECIMEN Performed By: #### 5 7021-8 ####[facility]CLIA [id number] [address] Nucleated RBC (Bld) [#/Vol] 10*3/uL Normal <0.01 [facility] Comment on above: Order Comment: Speci men Type: BLOOD SPECIMEN Performed By: #### 5 7021-8 ####[facility]CLIA [id number] [address] Nucleated RBC/100 WBC (Bld) [Ratio] 0.0 /100 WBC Normal 0.0 [facility] Comment on above: Order Comment: Speci men Type: BLOOD SPECIMEN Performed By: #### 5 7021-8 ####[facility] [id number] [address] Platelet mean volume (Bld) [Entitic vol] 10.4 fL Normal 9.0-12.7 [facility] Comment on above: Order Comment: Speci men Type: BLOOD SPECIMEN Performed By: #### 5 7021-8 ####[facility]ORYCLIA [id number] [address] Platelets (Bld) [#/Vol] 236 10*3/uL Normal 150-400 [facility] Comment on above: Order Comment: Speci men Type: BLOOD SPECIMEN Performed By: #### 5 7021-8 ####[facility]ORYCLIA [id number] [place] [address] [place] RBC (Bld) [#/Vol] 4.50 10*6/uL Normal 4.20-6.00 [facility] Comment on above: Order Comment: Speci men Type: BLOOD SPECIMEN Performed By: #### 5 7021-8 ####[facility] [id number] [address] WBC (Bld) [#/Vol] 10.14 10*3/uL Normal 3.70-11.00 [facility] Comment on above: Order Comment: Speci men Type: BLOOD SPECIMEN Performed By: #### 5 7021-8 ####[facility]IA [id number] [address] CBC panel Auto (Bld)on 06-07 Erythrocyte distribution width (RBC) [Ratio] 15.8 % High 11.5-15.0 [facility] Comment on above: Order Comment: Speci men Type: BLOOD SPECIMEN Performed By: #### 5 8410-2 ####[facility]IA [id number] [address] Hematocrit (Bld) [Volume fraction] 40.0 % Normal 39.0-51.0 [facility] Comment on above: Order Comment: Speci men Type: BLOOD SPECIMEN Performed By: #### 5 8410-2 ####[facility]IA [id number] [address] Hemoglobin (Bld) [Mass/Vol] 12.3 g/dL Low 13.0-17.0 [facility] Comment on above: Order Comment: Speci men Type: BLOOD SPECIMEN Performed By: #### 5 8410-2 ####[facility]CLIA [id number] [address] MCH (RBC) [Entitic mass] 27.3 pg Normal 26.0-34.0 [facility] Comment on above: Order Comment: Speci men Type: BLOOD SPECIMEN Performed By: #### 5 8410-2 ####[facility] [facility]ATORYCLIA [id number] [address] MCHC (RBC) [Mass/Vol] 30.8 g/dL Normal 30.5-36.0 [facility] Comment on above: Order Comment: Speci men Type: BLOOD SPECIMEN Performed By: #### 5 8410-2 ####[facility]IA [id number] [address] MCV (RBC) [Entitic vol] 88.7 fL Normal 80.0-100.0 [facility] Comment on above: Order Comment: Speci men Type: BLOOD SPECIMEN Performed By: #### 5 8410-2 ####[facility]ORYCLIA [id number] [address] Nucleated RBC (Bld) [#/Vol] 10*3/uL Normal <0.01 [facility] Comment on above: Order Comment: Speci men Type: BLOOD SPECIMEN Performed By: #### 5 8410-2 ####[facility] [id number] [address] Platelet mean volume (Bld) [Entitic vol] 10.0 fL Normal 9.0-12.7 [facility] Comment on above: Order Comment: Speci men Type: BLOOD SPECIMEN Performed By: #### 5 8410-2 ####[facility]ORYCLIA [id number] [address] Platelets (Bld) [#/Vol] 234 10*3/uL Normal 150-400 [facility] Comment on above: Order Comment: Speci men Type: BLOOD SPECIMEN Performed By: #### 5 8410-2 ####[facility] [id number] [address] RBC (Bld) [#/Vol] 4.51 10*6/uL Normal 4.20-6.00 [facility] Comment on above: Order Comment: Speci men Type: BLOOD SPECIMEN Performed By: #### 5 8410-2 ####[facility] [id number] [address] [place] WBC (Bld) [#/Vol] 11.47 10*3/uL High 3.70-11.00 [facility] Comment on above: Order Comment: Speci men Type: BLOOD SPECIMEN Performed By: #### 5 8410-2 ####[facility] [id number] [address] CONSULT PROGon 06-07-2021 CONSULT PROG Normal [facility] CONSULT PROG Normal [facility] CSF MANUAL DIFFon 06-07-2021 DIF TTL, CSF 92 cells counted Normal [facility] Comment on above: Order Comment: Speci men Type: CEREBROSPINAL FLUID Performed By: #### 3 4563-7, [id number], [id number] ####[facility]ORYCLIA [id number] [address] EOSIN%, CSF 1 % Normal [facility] Comment on above: Order Comment: Speci men Type: CEREBROSPINAL FLUID Performed By: #### 3 4563-7, [id number], [id number] ####[facility]CLIA [id number] [address] [place] LYMPH%, CSF 21 % Low 50-90 [facility] Comment on above: Order Comment: Speci men Type: CEREBROSPINAL FLUID Performed By: #### 3 4563-7, [id number], [id number] ####[facility]ORYCLIA [id number] [address] [place] MACRO%, CSF 27 % High <1 [facility] Comment on above: Order Comment: Speci men Type: CEREBROSPINAL FLUID Result Comment: Tati ected result: Previously reported as 22 % on 06/07/2021 at 1:49 PM EST. Performed By: #### 3 4563-7, [id number], [id number] ####[facility]ORYCLIA [id number] [address] [place] MONO%, CSF 36 % Normal 10-50 [facility] Comment on above: Order Comment: Speci men Type: CEREBROSPINAL FLUID Performed By: #### 3 4563-7, [id number], [id number] ####[facility]ORYCL[facility] [id number] [address] [place] NEUT%, CSF 11 % High 0-3 [facility] Comment on above: Order Comment: Speci men Type: CEREBROSPINAL FLUID Performed By: #### 3 4563-7, [id number], [id number] ####[facility]ORY[facility] [id number] [address] OTHER CL%, CSF 4 % Normal [facility] Comment on above: Order Comment: Speci men Type: CEREBROSPINAL FLUID Result Comment: Path review to follow.Corrected result: Previously reported as 10 % on 06/07/2021 at 1:49 PM EST. Performed By: #### 3 4563-7, [id number], [id number] ####[facility]ORYCLIA [id number] [address] CSF PATHOLOGIST INTERP (LAB REFLEX ORDER-NO BILL)on 06-07-2021 CSF STAFF REVIEW Negative for maligna nt cells. Rare immature myeloid or ventricular lining cells. Normal [facility] Comment on above: Order Comment: Speci men Type: CEREBROSPINAL FLUID Performed By: #### 3 4563-7, [id number], [id number] ####[facility]ORYCLIA [id number] [address] Pathologist name Reviewed by Eloise rebolledo MD [facility] Comment on above: Order Comment: Speci men Type: CEREBROSPINAL FLUID Performed By: #### 3 4563-7, [id number], [id number] ####[facility] [id number] [address] BRAIN WO IVCONon 06-07-19 CT BRAIN WO IVCON Normal [facility] CT BRAIN WO IVCON Normal [facility] Cell count panel (CSF)on Clarity (CSF) Clear Normal Clear [facility] Comment on above: Order Comment: Speci men Type: CEREBROSPINAL FLUID Performed By: #### 3 4563-7, [id number], [id number] ####[facility] [id number] [address] Clarity (Unsp spec) Not Indicated Normal Clear [facility] Comment on above: Order Comment: Speci men Type: CEREBROSPINAL FLUID Performed By: #### 3 4563-7, [id number], [id number] ####[facility]ORY[facility] [id number] [address] Color (CSF) Colorless Normal Colorless [facility] Comment on above: Order Comment: Speci men Type: CEREBROSPINAL FLUID Performed By: #### 3 4563-7, [id number], [id number] ####[facility] [id number] [address] Color (Spun CSF) Not Indicated Normal Colorless [facility] Comment on above: Order Comment: Speci men Type: CEREBROSPINAL FLUID Performed By: #### 3 4563-7, [id number], [id number] ####[facility]ATORYCLIA [id number] [address] CSF TUBE NUMBER Sterile Container Normal [facility] Comment on above: Order Comment: Speci men Type: CEREBROSPINAL FLUID Performed By: #### 3 4563-7, [id number], [id number] ####[facility]ATORYCLIA [id number] [address] RBC Manual cnt (CSF) [#/Vol] 42 cells/uL High 0-5 [facility] Comment on above: Order Comment: Speci men Type: CEREBROSPINAL FLUID Performed By: #### 3 4563-7, [id number], [id number] ####[facility]ATORYCLIA [id number] [address] WBC Manual cnt (CSF) [#/Vol] 1 cells/uL Normal 0-5 [facility] Comment on above: Order Comment: Speci men Type: CEREBROSPINAL FLUID Performed By: #### 3 4563-7, [id number], [id number] ####[facility]ORYCLIA [id number] [address] [place] Glucose CSF-mCncon 2 [...] Glucose HK (GLUC3) [package insert V 12.0 Fijian]. [employer], [place], [place]. September 2015. 2. Michelle Moore, Loki HGarfield (2015). Chapter 7: Glucose and Lactate. Marianela Rothman.(eds.), Cerebrospinal Fluid in Clinical Neurology. [place]: [employer]. Performed By: #### 2 880-3, 2342-4 ####[facility]ORYCLIA [id number] [address] STATES [facility] Lactate (Bld) [Moles/Vol]on 06-07-2021 Lactate [Moles/Vol] 0.9 mmol/L Normal 0.5-2.2 [facility] Comment on above: Order Comment: Speci men Type: BLOOD SPECIMEN Performed By: #### 3 2693-4 ####[facility]ORYCLIA [id number] [address] [place] Lipase SerPl-cCncon 06-07-19 22 Lipase [Catalytic activity/Vol] 35 U/L Normal 16-61 [facility] Comment on above: Order Comment: Speci men Type: BLOOD SPECIMEN Performed By: #### 3 040-3, PROCAL ####[facility]ORYCLIA [id number] [address] [place] Magnesium SerPl-mCncon 06-07 Magnesium [Mass/Vol] 2.7 mg/dL High 1.7-2.3 [facility] Comment on above: Order Comment: Speci men Type: BLOOD SPECIMEN Performed By: #### 1 9123-9, 2777-1, 58864-3 ####[facility]ORYCLIA [id number] [address] PROCALCITONIN (LAB)on 2021 Procalcitonin [Mass/Vol] 0.13 ng/mL High <0.09 [facility] Comment on above: Order Comment: Speci men Type: BLOOD SPECIMEN Result Comment: For a guided interpretation of test results, please visit the [facility] in Procalcitonin Calculator, [email or web address]. Performed By: #### 3 040-3, PROCAL ####[facility]ITAL[facility]IA [id number] [address] [facility] Phosphate SerPl-ncon 06-07 Phosphate [Mass/Vol] 1.9 mg/dL Low 2.7-4.8 [facility] Comment on above: Order Comment: Speci men Type: BLOOD SPECIMEN Performed By: #### 1 9123-9, 2777-1, 89973-1 ####[facility]IA [id number] [address] Prot CSF-mCncon 06-07-2021 Protein (CSF) [Mass/Vol] 33 mg/dL Normal 15-45 [facility] Comment on above: Order Comment: Speci men Type: CEREBROSPINAL FLUID Performed By: #### 2 880-3, 2342-4 ####[facility]ORYCLIA [id number] [address] SARS-CoV-2 RNA Resp Ql MEGAN+p robeon 06-07-2021 SARS-CoV-2 (COVID-19) RNA MEGAN+probe Ql (Resp) COVID 19 RESULT: SARS-CoV-2 (Agent of COVID-19) Not Detected by PCR. This test has been authorized by FDA under an Emergency Use Authorization (EUA). Normal [facility] Comment on above: Performed By: #### 9 4500-6 ####[facility]ORYCLIA [id number] [place] [address] [facility] TYPE AND SCREENon 06-07-2021 ABO O Normal [facility] Comment on above: Order Comment: Speci men Type: BLOOD SPECIMEN Performed By: #### T SCR ####[facility] BANKCLIA [id number] [place] [id number] [facility] HISTORICAL AB SCR STATUS Negative Normal [facility] Comment on above: Order Comment: Speci men Type: BLOOD SPECIMEN Performed By: #### T SCR ####[facility] BANKCLIA [id number] [address] Rh Nom (Bld) Positive Normal [facility] Comment on above: Order Comment: Speci men Type: BLOOD SPECIMEN Performed By: #### T SCR ####[facility]ANKCLIA [id number] [address] TYPE AND SCREEN EXPIRATION 06/10/2021 23:59 Normal [facility] Comment on above: Order Comment: Speci men Type: BLOOD SPECIMEN Performed By: #### T SCR ####[facility]ANKCLIA [id number] [address] Vancomycin random [Mass/Vol] on 06-07-2021 Vancomycin [Mass/Vol] 16.5 ug/mL Normal 10.0-20.0 [facility] Comment on above: Order Comment: Speci men Type: BLOOD SPECIMEN Result Comment: Refe rence ranges and high/low indicator flags are provided as general guidelines only. The treating physician must determine appropriate target levels/dosing based on the specific clinical situation. Performed By: #### 4 091-5 ####[facility]ATORYCLIA [id number] [address] XR CHEST 1V FRONTAL PORTon 0 06-07-2021 XR CHEST 1V FRONTAL PORT Normal [facility] Basic metabolic 2000 panelon 06-06-2021 Anion gap [Moles/Vol] 11 mmol/L Normal 9-18 [facility] Comment on above: Order Comment: Speci men Type: BLOOD SPECIMEN Performed By: #### 2 4321-2, , 2776-05 ####[facility]ATORYCLIA [id number] [address] [facility] Calcium [Mass/Vol] 8.6 mg/dL Normal 8.5-10.2 [facility] Comment on above: Order Comment: Speci men Type: BLOOD SPECIMEN Performed By: #### 2 4321-2, , 2776-05 ####[facility]ORYCLIA [id number] [address] [place] Chloride [Moles/Vol] 108 mmol/L High 97-105 [facility] Comment on above: Order Comment: Speci men Type: BLOOD SPECIMEN Performed By: #### 2 4321-2, , 2776-05 ####[facility]ORYCLIA [id number] [address] [place] CO2 [Moles/Vol] 25 mmol/L Normal 22-30 [facility] Comment on above: Order Comment: Speci men Type: BLOOD SPECIMEN Performed By: #### 2 4321-2, , 2776-05 ####[facility]ATORYCLIA [id number] [address] [place] [facility] Creatinine [Mass/Vol] 0.76 mg/dL Normal 0.73-1.22 [facility] Comment on above: Order Comment: Speci men Type: BLOOD SPECIMEN Performed By: #### 2 4321-2, , 2776-05 ####[facility]ATORYCLIA [id number] [place] [address] [place] GFR/1.73 sq M.predicted [...] has been calibrated to be traceable to IDGA. An eGFR <60 mL/min/1.73m2 for >3 months is consistent with chronic kidney disease. Refer to KDOQI guidelines for clinical interpretation. In patients with unstable renal function, e.g. those with acute kidney injury, the eGFR may not accurately reflect actual GFR. Performed By: #### 2 4321-2, , 2776-05 ####[facility]ATORYCLIA [id number] [place] [address] [place] Glucose [Mass/Vol] 116 [...] Performed By: #### 2 4321-2, , 2776-05 ####[facility]ATORYCLIA [id number] [place] [address] [place] Potassium [Moles/Vol] 3.5 mmol/L Low 3.7-5.1 [facility] Comment on above: Order Comment: Speci men Type: BLOOD SPECIMEN Performed By: #### 2 4321-2, , 2776-05 ####[facility]ATORYCLIA [id number] [place] [address] [place] Sodium [Moles/Vol] 144 mmol/L Normal 136-144 [facility] Comment on above: Order Comment: Speci men Type: BLOOD SPECIMEN Performed By: #### 2 4321-2, 10224-6, 2776-05 ####[facility]ORYCLIA [id number] [address] Urea nitrogen [Mass/Vol] 31 mg/dL High 9-24 [facility] Comment on above: Order Comment: Speci men Type: BLOOD SPECIMEN Performed By: #### 2 4321-2, , 2776-05 ####[facility]ORYCLIA [id number] [address] CASE MANAGEMon 06-06-2021 CASE MANAGEM Normal [facility] CBC panel Auto (Bld)on 06-06 Erythrocyte distribution width (RBC) [Ratio] 15.8 % High 11.5-15.0 [facility] Comment on above: Order Comment: Speci men Type: BLOOD SPECIMEN Performed By: #### 5 8410-2 ####[facility]ATORYCLIA [id number] [address] Hematocrit (Bld) [Volume fraction] 39.5 % Normal 39.0-51.0 [facility] Comment on above: Order Comment: Speci men Type: BLOOD SPECIMEN Performed By: #### 5 8410-2 ####[facility]ORYCLIA [id number] [address] Hemoglobin (Bld) [Mass/Vol] 12.2 g/dL Low 13.0-17.0 [facility] Comment on above: Order Comment: Speci men Type: BLOOD SPECIMEN Performed By: #### 5 8410-2 ####[facility]ATORYCLIA [id number] [address] MCH (RBC) [Entitic mass] 27.8 pg Normal 26.0-34.0 [facility] Comment on above: Order Comment: Speci men Type: BLOOD SPECIMEN Performed By: #### 5 8410-2 ####[facility]ORYCLIA [id number] [address] MCHC (RBC) [Mass/Vol] 30.9 g/dL Normal 30.5-36.0 [facility] Comment on above: Order Comment: Speci men Type: BLOOD SPECIMEN Performed By: #### 5 8410-2 ####[facility]ORYCLIA [id number] [address] MCV (RBC) [Entitic vol] 90.0 fL Normal 80.0-100.0 [facility] Comment on above: Order Comment: Speci men Type: BLOOD SPECIMEN Performed By: #### 5 8410-2 ####[facility]ORYCLIA [id number] [address] Nucleated RBC (Bld) [#/Vol] 10*3/uL Normal <0.01 [facility] Comment on above: Order Comment: Speci men Type: BLOOD SPECIMEN Performed By: #### 5 8410-2 ####[facility]ORYCLIA [id number] [address] Platelet mean volume (Bld) [Entitic vol] 10.4 fL Normal 9.0-12.7 [facility] Comment on above: Order Comment: Speci men Type: BLOOD SPECIMEN Performed By: #### 5 8410-2 ####[facility]ORYCLIA [id number] [address] Platelets (Bld) [#/Vol] 236 10*3/uL Normal 150-400 [facility] Comment on above: Order Comment: Speci men Type: BLOOD SPECIMEN Performed By: #### 5 8410-2 ####[facility]ORYCLIA [id number] [address] RBC (Bld) [#/Vol] 4.39 10*6/uL Normal 4.20-6.00 [facility] Comment on above: Order Comment: Speci men Type: BLOOD SPECIMEN Performed By: #### 5 8410-2 ####[facility]ATORYCLIA [id number] [place], [place] [id number] [place] [address] WBC (Bld) [#/Vol] 9.74 10*3/uL Normal 3.70-11.00 [facility] Comment on above: Order Comment: Speci men Type: BLOOD SPECIMEN Performed By: #### 5 8410-2 ####[facility]ATORYCLIA [id number] [place] [address] [facility] CONSULT PROGon 06-06-2021 CONSULT PROG Normal [facility] CONSULT PROG Normal [facility] Magnesium SerPl-mCncon 06-06 Magnesium [Mass/Vol] 2.5 mg/dL High 1.7-2.3 [facility] Comment on above: Order Comment: Speci men Type: BLOOD SPECIMEN Performed By: #### 2 4321-2, 30903-5, 2777-1 ####[facility]ORYCLIA [id number] [address] PT panel Coag (PPP)on 2021 INR [...] 70: 252-289 Performed By: #### 3 4528-0, 38005-1 ####[facility]ORYCLIA [id number] [address] PT Coag (PPP) [Time] 11.4 s Normal 9.7-13.0 [facility] Comment on above: Order Comment: Speci men Type: BLOOD SPECIMEN Performed By: #### 3 4528-0, 21880-2 ####[facility]ORYCLIA [id number] [address] Phosphate SerPl-mCncon 06-06 Phosphate [Mass/Vol] 2.3 mg/dL Low 2.7-4.8 [facility] Comment on above: Order Comment: Speci men Type: BLOOD SPECIMEN Performed By: #### 2 4321-2, 52322-2, 2777-1 ####[facility]ORYCLIA [id number] [address] THROMBOGRAPH HEPARINASE PANE Kiel 06-06-2021 Clot angle after addition of heparinase TEG (Bld) [Angle] 70.2 degrees Normal 47.0-74.0 [facility] Comment on above: Order Comment: Speci men Type: BLOOD SPECIMEN Performed By: #### T EGHPP ####[facility]ORYCLIA [id number] [address] Clot Lysis 30 Min post maximum clot amplitude TEG (Bld) [Length fraction] 0.0 % Normal 0.0-8.0 [facility] Comment on above: Order Comment: Speci men Type: BLOOD SPECIMEN Performed By: #### T EGHPP ####[facility]ORYCLIA [id number] [address] Clotting time after addition of heparinase TEG (Bld) 5.7 minutes Normal 4.0-10.0 [facility] Comment on above: Order Comment: Speci men Type: BLOOD SPECIMEN Performed By: #### T EGHPP ####[facility]ORYCLIA [id number] [address] Coagulation index TEG Qn (Bld) 1.2 Normal -4.6-3.2 [facility] Comment on above: Order Comment: Speci men Type: BLOOD SPECIMEN Result Comment: The Coagulation Index, a secondary parameter, is labeled by the pct as for "research use only" and is used per the pct's instructions. Its performance characteristics were determined by [facility]'s [facility] Pathology and Laboratory Medicine [place] in a manner consistent with CLIA requirements. This test has not been cleared by the U.S. Food and Drug Administration. Performed By: #### T EGHPP ####[facility]ORYCLIA [id number] [address] Maximum clot firmness after addition of heparinase TEG (Bld) [Length] 64.0 mm Normal 51.0-75.0 [facility] Comment on above: Order Comment: Speci men Type: BLOOD SPECIMEN Performed By: #### T EGHPP ####[facility]ORYCLIA [id number] [address] [facility] Vancomycin random [Mass/Vol] on 06-06-2021 Vancomycin [Mass/Vol] 17.4 ug/mL Normal 10.0-20.0 [facility] Comment on above: Order Comment: Speci men Type: BLOOD SPECIMEN Result Comment: Refe rence ranges and high/low indicator flags are provided as general guidelines only. The treating physician must determine appropriate target levels/dosing based on the specific clinical situation. Performed By: #### 4 091-5 ####[facility]ORYCLIA [id number] [address] [place] [facility] Vancomycin [Mass/Vol] 13.5 ug/mL Normal 10.0-20.0 [facility] Comment on above: Order Comment: Speci men Type: BLOOD SPECIMEN Result Comment: Refe rence ranges and high/low indicator flags are provided as general guidelines only. The treating physician must determine appropriate target levels/dosing based on the specific clinical situation. Performed By: #### 4 091-5 ####[facility]ATORYCLIA [id number] [address] [place] aPTT PPPon 06-06-2021 aPTT Coag (PPP) [Time] 27.8 s Normal 23.0-32.4 [facility] Comment on above: Order Comment: Speci men Type: BLOOD SPECIMEN Performed By: #### 3 4528-0, 30272-0 ####[facility]ORYCLIA [id number] [address] [place] Basic metabolic 2000 panelon 06-05-2021 Anion gap [Moles/Vol] 11 mmol/L Normal 9-18 [facility] Comment on above: Order Comment: Speci men Type: BLOOD SPECIMEN Performed By: #### 1 9123-9, 04660-9, 2776- ####[facility]ATORYCLIA [id number] [place] [address] [place] Calcium [Mass/Vol] 8.6 mg/dL Normal 8.5-10.2 [facility] Comment on above: Order Comment: Speci men Type: BLOOD SPECIMEN Performed By: #### 1 9123-9, 50632-3, 2776- ####[facility]ORYCLIA [id number] [address] [place] [facility] Chloride [Moles/Vol] 108 mmol/L High 97-105 [facility] Comment on above: Order Comment: Speci men Type: BLOOD SPECIMEN Performed By: #### 1 9123-9, 52559-7, 2776- ####[facility]ORYCLIA [id number] [place] [address] [place] CO2 [Moles/Vol] 25 mmol/L Normal 22-30 [facility] Comment on above: Order Comment: Speci men Type: BLOOD SPECIMEN Performed By: #### 1 9123-9, 19855-2, 2776- ####[facility]ORYCLIA [id number] [place] [address] [place] Creatinine [Mass/Vol] 0.77 mg/dL Normal 0.73-1.22 [facility] Comment on above: Order Comment: [facility] Type: BLOOD SPECIMEN Performed By: #### 1 9123-9, 38842-7, 2777-1 ####[facility]ATORYCLIA [id number] [place] [address] [place] GFR/1.73 sq M.predicted [...] actual GFR. Performed By: #### 1 9123-9, 62356-4, 2777-1 ####[facility] SERVICESIA [id number] [place] [address] [place] Glucose [Mass/Vol] 96 mg/dL Normal 74-99 [facility] Comment on above: Order Comment: [facility] Type: BLOOD SPECIMEN Result Comment: The [...] 2016.39(Suppl 1). Performed By: #### 1 9123-9, 51923-3, 2776-05 ####[facility]ORYCLIA [id number] [address] [facility] Potassium [Moles/Vol] 3.9 mmol/L Normal 3.7-5.1 [facility] Comment on above: Order Comment: Speci men Type: BLOOD SPECIMEN Performed By: #### 1 9123-9, 74318-7, 2776- ####[facility]ORYCLIA [id number] [address] Sodium [Moles/Vol] 144 mmol/L Normal 136-144 [facility] Comment on above: Order Comment: Speci men Type: BLOOD SPECIMEN Performed By: #### 1 91239, 46250-8, 2776-05 ####[facility]ORYCLIA [id number] [address] Urea nitrogen [Mass/Vol] 26 mg/dL High 9-24 [facility] Comment on above: Order Comment: Speci men Type: BLOOD SPECIMEN Performed By: #### 1 9123-9, , 2776-05 ####[facility]ORYCLIA [id number] [address] CBC panel Auto (Bld)on 06-05 Erythrocyte distribution width (RBC) [Ratio] 15.9 % High 11.5-15.0 [facility] Comment on above: Order Comment: Speci men Type: BLOOD SPECIMEN Performed By: #### 5 8410-2 ####[facility]ORYCLIA [id number] [address] Hematocrit (Bld) [Volume fraction] 39.6 % Normal 39.0-51.0 [facility] Comment on above: Order Comment: Speci men Type: BLOOD SPECIMEN Performed By: #### 5 8410-2 ####[facility]ORYCLIA [id number] [address] Hemoglobin (Bld) [Mass/Vol] 12.3 g/dL Low 13.0-17.0 [facility] Comment on above: Order Comment: Speci men Type: BLOOD SPECIMEN Performed By: #### 5 8410-2 ####[facility]ORYCLIA [id number] [address] MCH (RBC) [Entitic mass] 28.1 pg Normal 26.0-34.0 [facility] Comment on above: Order Comment: Speci men Type: BLOOD SPECIMEN Performed By: #### 5 8410-2 ####[facility]ORYCLIA [id number] [address] MCHC (RBC) [Mass/Vol] 31.1 g/dL Normal 30.5-36.0 [facility] Comment on above: Order Comment: Speci men Type: BLOOD SPECIMEN Performed By: #### 5 8410-2 ####[facility]ORYCLIA [id number] [address] MCV (RBC) [Entitic vol] 90.4 fL Normal 80.0-100.0 [facility] Comment on above: Order Comment: Speci men Type: BLOOD SPECIMEN Performed By: #### 5 8410-2 ####[facility]ORYCLIA [id number] [address] Nucleated RBC (Bld) [#/Vol] 10*3/uL Normal <0.01 [facility] Comment on above: Order Comment: Speci men Type: BLOOD SPECIMEN Performed By: #### 5 8410-2 ####[facility]ORYCLIA [id number] [address] Platelet mean volume (Bld) [Entitic vol] 10.5 fL Normal 9.0-12.7 [facility] Comment on above: Order Comment: Speci men Type: BLOOD SPECIMEN Performed By: #### 5 8410-2 ####[facility]ORYCLIA [id number] [address] Platelets (Bld) [#/Vol] 224 10*3/uL Normal 150-400 [facility] Comment on above: Order Comment: Speci men Type: BLOOD SPECIMEN Performed By: #### 5 8410-2 ####[facility] LABORATORYCLIA [id number] [address] RBC (Bld) [#/Vol] 4.38 10*6/uL Normal 4.20-6.00 [facility] Comment on above: Order Comment: Speci men Type: BLOOD SPECIMEN Performed By: #### 5 8410-2 ####[facility]ORYCLIA [id number] [address] [facility] WBC (Bld) [#/Vol] 9.66 10*3/uL Normal 3.70-11.00 [facility] Comment on above: Order Comment: Speci men Type: BLOOD SPECIMEN Performed By: #### 5 8410-2 ####[facility]ORYCLIA [id number] [address] CONSULT PROGon 06-05-2021 CONSULT PROG Normal [facility] Gas and Carbon monoxide pane l (BldV)on 06-05-2021 Base excess Calc (BldV) [Moles/Vol] 1.8 mmol/L Normal 0-2 [facility] Comment on above: Order Comment: Speci men Type: VENOUS BLOOD SPECIMEN Performed By: #### 2 4344-4 ####[facility]ORYCLIA [id number] [address] Body temperature 100.4 [degF] Normal [facility] Comment on above: Order Comment: Speci men Type: VENOUS BLOOD SPECIMEN Performed By: #### 2 4344-4 ####[facility]ORYCLIA [id number] [address] CALCIUM IONIZED, PH CORRECTED 1.21 mmol/L Normal 1.08-1.30 [facility] Comment on above: Order Comment: Speci men Type: VENOUS BLOOD SPECIMEN Performed By: #### 2 4344-4 ####[facility]ORYCLIA [id number] [address] Calcium.ionized (BldV) [Mass/Vol] 1.19 mmol/L Normal 1.08-1.30 [facility] Comment on above: Order Comment: Speci men Type: VENOUS BLOOD SPECIMEN Performed By: #### 2 4344-4 ####[facility]ORYCLIA [id number] [address] Carboxyhemoglobin (BldV) [Mass fraction] 1.0 % Normal 0.0-2.0 [facility] Comment on above: Order Comment: Speci men Type: VENOUS BLOOD SPECIMEN Result Comment: Carb oxyhemoglobin Reference Range for Smokers: 2.0-8.0% Performed By: #### 2 4344-4 ####[facility]ORYCLIA [id number] [address] CO2 (BldV) [Partial pressure] 41 mm[Hg] Low 42-55 [facility] Comment on above: Order Comment: Speci men Type: VENOUS BLOOD SPECIMEN Performed By: #### 2 4344-4 ####[facility]ORYCLIA [id number] [address] CO2 [Moles/Vol] 23.4 mmol/L Low 25-29 [facility] Comment on above: Order Comment: Speci men Type: VENOUS BLOOD SPECIMEN Performed By: #### 2 4344-4 ####[facility]ORYCLIA [id number] [address] CO2 adjusted to patient's actual temperature (BldV) [Partial pressure] 43 mmHg Normal 42-55 [facility] Comment on above: Order Comment: Speci men Type: VENOUS BLOOD SPECIMEN Performed By: #### 2 4344-4 ####[facility]ORYCLIA [id number] [address] Glucose [Mass/Vol] 101 mg/dL Normal 60-105 [facility] Comment on above: Order Comment: Speci men Type: VENOUS BLOOD SPECIMEN Performed By: #### 2 4344-4 ####[facility]ATORYCLIA [id number] [place], [place] [id number] [place] [address] [place] HCO3 (Bld) [Moles/Vol] 26.0 mmol/L Normal 24-28 [facility] Comment on above: Order Comment: Speci men Type: VENOUS BLOOD SPECIMEN Performed By: #### 2 4344-4 ####[facility]ORATORYCLIA [id number] [address] [place] Hematocrit (Bld) [Volume fraction] 38.4 % Low 39.0-51.0 [facility] Comment on above: Order Comment: Speci men Type: VENOUS BLOOD SPECIMEN Performed By: #### 2 4344-4 ####[facility]ORYCLIA [id number] [address] OF [facility] Hemoglobin (Bld) [Mass/Vol] 12.5 g/dL Low 13.0-17.0 [facility] Comment on above: Order Comment: Speci men Type: VENOUS BLOOD SPECIMEN Performed By: #### 2 4344-4 ####[facility]ORY[facility] [id number] [address] [place] OF [facility] Methemoglobin (Bld) [Mass fraction] % Normal 0.0-1.5 [facility] Comment on above: Order Comment: Speci men Type: VENOUS BLOOD SPECIMEN Performed By: #### 2 4344-4 ####[facility]ATORYCL[facility] [id number] [address] [place] O2 THERAPY Ventilator Normal [facility] Comment on above: Order Comment: Speci men Type: VENOUS BLOOD SPECIMEN Performed By: #### 2 4344-4 ####[facility]ATORYCLIA [id number] [address] Oxygen (BldV) [Partial pressure] 44 mm[Hg] Normal 35-45 [facility] Comment on above: Order Comment: Speci men Type: VENOUS BLOOD SPECIMEN Performed By: #### 2 4344-4 ####[facility]ATORYCLIA [id number] [address] Oxygen adjusted to patient's actual temperature (BldV) [Partial pressure] 46.8 mmHg High 35-45 [facility] Comment on above: Order Comment: Speci men Type: VENOUS BLOOD SPECIMEN Performed By: #### 2 4344-4 ####[facility]ORATORYCLIA [id number] [address] Oxygen saturation in Blood 76.5 % Normal 60-85 [facility] Comment on above: Order Comment: Speci men Type: VENOUS BLOOD SPECIMEN Performed By: #### 2 4344-4 ####[facility]ORYCLIA [id number] [address] Oxyhemoglobin (BldV) [Mass fraction] 75 % Normal 60-85 [facility] Comment on above: Order Comment: Speci men Type: VENOUS BLOOD SPECIMEN Performed By: #### 2 4344-4 ####[facility]ORYCLIA [id number] [address] pH (BldV) 7.42 [pH] Normal 7.32-7.42 [facility] Comment on above: Order Comment: Speci men Type: VENOUS BLOOD SPECIMEN Performed By: #### 2 4344-4 ####[facility]ORYCLIA [id number] [address] pH adjusted to patient's actual temperature (BldV) 7.40 Normal 7.32-7.42 [facility] Comment on above: Order Comment: Speci men Type: VENOUS BLOOD SPECIMEN Performed By: #### 2 4344-4 ####[facility]ORYCLIA [id number] [address] [place] Potassium [Moles/Vol] 3.7 mmol/L Normal 3.5-5.0 [facility] Comment on above: Order Comment: Speci men Type: VENOUS BLOOD SPECIMEN Performed By: #### 2 4344-4 ####[facility]ORYCLIA [id number] [address] Sodium [Moles/Vol] 141 mmol/L Normal 136-144 [facility] Comment on above: Order Comment: Speci men Type: VENOUS BLOOD SPECIMEN Performed By: #### 2 4344-4 ####[facility]ORYCLIA [id number] [address] [place] Magnesium SerPl-mCncon 06-05 Magnesium [Mass/Vol] 2.3 mg/dL Normal 1.7-2.3 [facility] Comment on above: Order Comment: Speci men Type: BLOOD SPECIMEN Performed By: #### 1 9123-9, 63527-7, 2777-1 ####[facility]ORYCLIA [id number] [address] Phosphate SerPl-mCncon 06-05 Phosphate [Mass/Vol] 2.9 mg/dL Normal 2.7-4.8 [facility] Comment on above: Order Comment: Speci men Type: BLOOD SPECIMEN Performed By: #### 1 9123-9, 47359-4, 2777-1 ####[facility]ORYCLIA [id number] [address] [facility] Vancomycin random [Mass/Vol] on 06-05-2021 Vancomycin [Mass/Vol] 23.2 ug/mL High 10.0-20.0 [facility] Comment on above: Order Comment: Speci men Type: BLOOD SPECIMEN Result Comment: Refe rence ranges and high/low indicator flags are provided as general guidelines only. The treating physician must determine appropriate target levels/dosing based on the specific clinical situation. Performed By: #### 4 091-5 ####[facility]ATORYCLIA [id number] [place] [address] [place] (1,3)-P-Z-NPKIZSuu 2 (1,3) B-D GLUCAN <31 Normal <60 [facility] Comment on above: Order Comment: Speci men Type: BLOOD SPECIMEN Performed By: #### B DGLUC ####[facility] LABCLIA [id number] [place] [address] [place] (1,3) B-D GLUCAN, QUAL Negative Normal NEGAT [facility] Comment on above: Order Comment: Speci men Type: BLOOD SPECIMEN Result Comment: Cert ain fungi, such as the genus Cryptococcus which produces very low levels of (1,3)-ogfv-E-oiqhyz, may not result in serum (1,3)-tzlh-J-jvizyg sufficiently elevated so as to be detected by the assay. Infections with fungi of the order Mucorales such as Absidia, Mucor and Rhizopus which are not known to produce (1,3)-nlsc-I-jupljk, are also observed to yield low serum (1,3)-usyj-A-qiojpq titers.In addition, the yeast phase of Blastomyces dermatitidis produces little (1,3)-hogw-K-usnywe and may not be detected by the assay. Performed By: #### B DGLUC ####[facility] LABCLIA [id number] [employer] [place] [address] [place] ALLIED HEALTHon 06-04-2021 ALLIED HEALTH Normal [facility] ALLIED HEALTH Normal [facility] ARTERIAL BLOOD GASESon 06-04 Base excess Calc (Bld) [Moles/Vol] 3 mmol/L High 0-2 [facility] Comment on above: Order Comment: Speci men Type: ARTERIAL BLOOD SPECIMEN Performed By: #### A LLBG ####[facility]ATORYCLIA [id number] [address] [place] Body temperature 98.06 [degF] Normal [facility] Comment on above: Order Comment: Speci men Type: ARTERIAL BLOOD SPECIMEN Performed By: #### A LLBG ####[facility]ATORYCLIA [id number] [address] [place] CALCIUM IONIZED, PH CORRECTED 1.19 mmol/L Normal 1.08-1.30 [facility] Comment on above: Order Comment: Speci men Type: ARTERIAL BLOOD SPECIMEN Performed By: #### A LLBG ####[facility]ORYCLIA [id number] [address] OF [facility] Calcium.ionized (BldV) [Mass/Vol] 1.14 mmol/L Normal 1.08-1.30 [facility] Comment on above: Order Comment: Speci men Type: ARTERIAL BLOOD SPECIMEN Performed By: #### A LLBG ####[facility]ATORYCLIA [id number] [address] OF [facility] Carboxyhemoglobin (BldA) [Mass fraction] 1.2 % Normal 0.0-2.0 [facility] Comment on above: Order Comment: Speci men Type: ARTERIAL BLOOD SPECIMEN Result Comment: Carb oxyhemoglobin Reference Range for Smokers: 2.0-8.0% Performed By: #### A LLBG ####[facility]ATORYCLIA [id number] [address] CO2 (Bld) [Partial pressure] 35 mm Hg Low 36-46 [facility] Comment on above: Order Comment: Speci men Type: ARTERIAL BLOOD SPECIMEN Performed By: #### A LLBG ####[facility]ORYCLIA [id number] [address] CO2 [Moles/Vol] 23.2 mmol/L Normal 22-28 [facility] Comment on above: Order Comment: Speci men Type: ARTERIAL BLOOD SPECIMEN Performed By: #### A LLBG ####[facility]ORYCLIA [id number] [address] CO2 adjusted to patient's actual temperature (Bld) [Partial pressure] 34 mmHg Low 36-46 [facility] Comment on above: Order Comment: Speci men Type: ARTERIAL BLOOD SPECIMEN Performed By: #### A LLBG ####[facility]ORYCLIA [id number] [address] Glucose [Mass/Vol] 115 mg/dL High 60-105 [facility] Comment on above: Order Comment: Speci men Type: ARTERIAL BLOOD SPECIMEN Performed By: #### A LLBG ####[facility]ORYCLIA [id number] [address] [place] HCO3 (Bld) [Moles/Vol] 26 mmol/L Normal 22-26 [facility] Comment on above: Order Comment: Speci men Type: ARTERIAL BLOOD SPECIMEN Performed By: #### A LLBG ####[facility]ATORYCLIA [id number] [address] [place] Hematocrit (Bld) [Volume fraction] 35.3 % Low 39.0-51.0 [facility] Comment on above: Order Comment: Speci men Type: ARTERIAL BLOOD SPECIMEN Performed By: #### A LLBG ####[facility]ATORYCLIA [id number] [address] [place] Hemoglobin (Bld) [Mass/Vol] 11.5 g/dL Low 13.0-17.0 [facility] Comment on above: Order Comment: Speci men Type: ARTERIAL BLOOD SPECIMEN Performed By: #### A LLBG ####[facility]ORYCLIA [id number] [address] Methemoglobin (Bld) [Mass fraction] % Normal 0.0-1.5 [facility] Comment on above: Order Comment: Speci men Type: ARTERIAL BLOOD SPECIMEN Performed By: #### A LLBG ####[facility]ATORYCLIA [id number] [address] [place] O2 THERAPY Ventilator Normal [facility] Comment on above: Order Comment: Speci men Type: ARTERIAL BLOOD SPECIMEN Performed By: #### A LLBG ####[facility]ORYCLIA [id number] [address] [place] Oxygen (Bld) [Partial pressure] 66 mm Hg Low 85-95 [facility] Comment on above: Order Comment: Speci men Type: ARTERIAL BLOOD SPECIMEN Performed By: #### A LLBG ####[facility]ORYCLIA [id number] [address] [place] Oxygen adjusted to patient's actual temperature (Bld) [Partial pressure] 64.3 mmHg Low 85-95 [facility] Comment on above: Order Comment: Speci men Type: ARTERIAL BLOOD SPECIMEN Performed By: #### A LLBG ####[facility]ORYCLIA [id number] [address] OXYGEN SATURATION, ARTERIAL 95 % Normal 95-98 [facility] Comment on above: Order Comment: Speci men Type: ARTERIAL BLOOD SPECIMEN Performed By: #### A LLBG ####[facility]ORYCLIA [id number] [address] Oxyhemoglobin (BldA) [Mass fraction] 93 % Low 95-98 [facility] Comment on above: Order Comment: Speci men Type: ARTERIAL BLOOD SPECIMEN Performed By: #### A LLBG ####[facility]ORYCLIA [id number] [address] pH (Bld) 7.49 [pH] High 7.35-7.45 [facility] Comment on above: Order Comment: Speci men Type: ARTERIAL BLOOD SPECIMEN Performed By: #### A LLBG ####[facility]ORYCLIA [id number] [address] pH adjusted to patient's actual temperature (Bld) 7.49 High 7.35-7.45 [facility] Comment on above: Order Comment: Speci men Type: ARTERIAL BLOOD SPECIMEN Performed By: #### A LLBG ####[facility]ORYCLIA [id number] [address] Potassium [Moles/Vol] 2.8 mmol/L Low 3.5-5.0 [facility] Comment on above: Order Comment: Speci men Type: ARTERIAL BLOOD SPECIMEN Performed By: #### A LLBG ####[facility]ORYCLIA [id number] [address] Bas Metab 2000 Pnl SerPlon 0 06-04-2021 Sodium [Moles/Vol] 143 mmol/L Normal 136-144 [facility] Comment on above: Order Comment: Speci men Type: BLOOD SPECIMEN Performed By: #### 2 777-1, , ####[facility]ORYCLIA [id number] [address] Order Comment: Speci men Type: ARTERIAL BLOOD SPECIMEN Performed By: #### A LLBG ####[facility]ORYCLIA [id number] [address] Basic metabolic 2000 panelon 06-04-2021 Anion gap [Moles/Vol] 11 mmol/L Normal 9-18 [facility] Comment on above: Order Comment: Speci men Type: BLOOD SPECIMEN Performed By: #### 2 777-1, , ####[facility]ORYCLIA [id number] [address] Calcium [Mass/Vol] 8.5 mg/dL Normal 8.5-10.2 [facility] Comment on above: Order Comment: Speci men Type: BLOOD SPECIMEN Performed By: #### 2 777-1, , ####[facility]ORYCLIA [id number] [address] Chloride [Moles/Vol] 107 mmol/L High 97-105 [facility] Comment on above: Order Comment: Speci men Type: BLOOD SPECIMEN Performed By: #### 2 777-1, , ####[facility]ORYCLIA [id number] [address] STATES [facility] CO2 [Moles/Vol] 25 mmol/L Normal 22-30 [facility] Comment on above: Order Comment: Speci men Type: BLOOD SPECIMEN Performed By: #### 2 777-1, , ####[facility]ORYCLIA [id number] [address] [place] Creatinine [Mass/Vol] 0.77 mg/dL Normal 0.73-1.22 [facility] Comment on above: Order Comment: Speci men Type: BLOOD SPECIMEN Performed By: #### 2 777-1, 36535-7, ####[facility]ATORYCLIA [id number] [place] [address] [place] GFR/1.73 sq M.predicted [...] GFR. Performed By: #### 2 777-1, , ####[facility] [id number] [place] [id number] [place] Glucose [Mass/Vol] 107 mg/dL High 74-99 [facility] Comment on above: Order Comment: [facility] Type: BLOOD SPECIMEN Result Comment: The [...] 1). Performed By: #### 2 777-1, , ####[facility]ORATORYCLIA [id number] [address] Potassium [Moles/Vol] 3.1 mmol/L Low 3.7-5.1 [facility] Comment on above: Order Comment: Speci men Type: BLOOD SPECIMEN Performed By: #### 2 777-1, , ####[facility]ORATORYCLIA [id number] [address] Urea nitrogen [Mass/Vol] 19 mg/dL Normal 9-24 [facility] Comment on above: Order Comment: Speci men Type: BLOOD SPECIMEN Performed By: #### 2 777-1, , ####[facility]ORYCLIA [id number] [address] CBC panel Auto (Bld)on 06-04 Erythrocyte distribution width (RBC) [Ratio] 15.8 % High 11.5-15.0 [facility] Comment on above: Order Comment: Speci men Type: BLOOD SPECIMEN Performed By: #### 5 8410-2 ####[facility]ORYCLIA [id number] [address] Hematocrit (Bld) [Volume fraction] 36.9 % Low 39.0-51.0 [facility] Comment on above: Order Comment: Speci men Type: BLOOD SPECIMEN Performed By: #### 5 8410-2 ####[facility]ORYCLIA [id number] [address] Hemoglobin (Bld) [Mass/Vol] 11.2 g/dL Low 13.0-17.0 [facility] Comment on above: Order Comment: Speci men Type: BLOOD SPECIMEN Performed By: #### 5 8410-2 ####[facility]ORYCLIA [id number] [address] [facility] MCH (RBC) [Entitic mass] 27.3 pg Normal 26.0-34.0 [facility] Comment on above: Order Comment: Speci men Type: BLOOD SPECIMEN Performed By: #### 5 8410-2 ####[facility]ORYCLIA [id number] [address] MCHC (RBC) [Mass/Vol] 30.4 g/dL Low 30.5-36.0 [facility] Comment on above: Order Comment: Speci men Type: BLOOD SPECIMEN Performed By: #### 5 8410-2 ####[facility]ORYCLIA [id number] [address] MCV (RBC) [Entitic vol] 89.8 fL Normal 80.0-100.0 [facility] Comment on above: Order Comment: Speci men Type: BLOOD SPECIMEN Performed By: #### 5 8410-2 ####[facility]ORYCLIA [id number] [address] Nucleated RBC (Bld) [#/Vol] 10*3/uL Normal <0.01 [facility] Comment on above: Order Comment: Speci men Type: BLOOD SPECIMEN Performed By: #### 5 8410-2 ####[facility]ORYCLIA [id number] [address] Platelet mean volume (Bld) [Entitic vol] 10.7 fL Normal 9.0-12.7 [facility] Comment on above: Order Comment: Speci men Type: BLOOD SPECIMEN Performed By: #### 5 8410-2 ####[facility]ORYCLIA [id number] [address] Platelets (Bld) [#/Vol] 174 10*3/uL Normal 150-400 [facility] Comment on above: Order Comment: Speci men Type: BLOOD SPECIMEN Performed By: #### 5 8410-2 ####[facility]ORYCLIA [id number] [address] RBC (Bld) [#/Vol] 4.11 10*6/uL Low 4.20-6.00 [facility] Comment on above: Order Comment: Speci men Type: BLOOD SPECIMEN Performed By: #### 5 8410-2 ####[facility]ORYCLIA [id number] [address] [facility] WBC (Bld) [#/Vol] 8.29 10*3/uL Normal 3.70-11.00 [facility] Comment on above: Order Comment: Speci men Type: BLOOD SPECIMEN Performed By: #### 5 8410-2 ####[facility]ORYCLIA [id number] [address] CONSULT PROGon 06-04-2021 CONSULT PROG Normal [facility] CT BRAIN WO IVCONon 06-04-19 CT BRAIN WO IVCON Normal [facility] CT CHEST W IVCON PEon 2021 CT CHEST W IVCON PE Normal [facility] Magnesium SerPl-mCncon 06-04 Magnesium [Mass/Vol] 2.2 mg/dL Normal 1.7-2.3 [facility] Comment on above: Order Comment: Speci men Type: BLOOD SPECIMEN Performed By: #### 2 777-1, 02757-4, 99004-2 ####[facility]ORATORYCLIA [id number] [address] NT-proBNP SerPl-mCncon 06-04 Natriuretic peptide.B prohormone N-Terminal [Mass/Vol] 229 pg/mL High <125 [facility] Comment on above: Order Comment: Speci men Type: BLOOD SPECIMEN Performed By: #### 3 3762-6, 4091-5 ####[facility]ORYCLIA [id number] [address] Phosphate SerPl-mCncon 06-04 Phosphate [Mass/Vol] 2.0 mg/dL Low 2.7-4.8 [facility] Comment on above: Order Comment: Speci men Type: BLOOD SPECIMEN Performed By: #### 2 777-1, 48959-4, 87547-1 ####[facility]ORYCLIA [id number] [address] Vancomycin random [Mass/Vol] on 06-04-2021 Vancomycin [Mass/Vol] 35.2 ug/mL High 10.0-20.0 [facility] Comment on above: Order Comment: Speci men Type: BLOOD SPECIMEN Result Comment: Refe rence ranges and high/low indicator flags are provided as general guidelines only. The treating physician must determine appropriate target levels/dosing based on the specific clinical situation. Performed By: #### 3 3762-6, 4091-5 ####[facility]ORYCLIA [id number] [address] XR ABDOMEN 1V SUPINEon 06-04 XR ABDOMEN 1V SUPINE Normal [facility] ALLIED HEALTHon 06-03-2021 ALLIED HEALTH Normal [facility] ARTERIAL BLOOD GASESon 06-03 Base excess Calc (Bld) [Moles/Vol] 5 mmol/L High 0-2 [facility] Comment on above: Order Comment: Speci men Type: ARTERIAL BLOOD SPECIMEN Performed By: #### A LLBG ####[facility]ORYCLIA [id number] [address] Body temperature 99.5 [degF] Normal [facility] Comment on above: Order Comment: Speci men Type: ARTERIAL BLOOD SPECIMEN Performed By: #### A LLBG ####[facility]ORYCLIA [id number] [address] CALCIUM IONIZED, PH CORRECTED 1.18 mmol/L Normal 1.08-1.30 [facility] Comment on above: Order Comment: Speci men Type: ARTERIAL BLOOD SPECIMEN Performed By: #### A LLBG ####[facility]ORYCLIA [id number] [address] Calcium.ionized (BldV) [Mass/Vol] 1.16 mmol/L Normal 1.08-1.30 [facility] Comment on above: Order Comment: Speci men Type: ARTERIAL BLOOD SPECIMEN Performed By: #### A LLBG ####[facility]ORYCLIA [id number] [address] Carboxyhemoglobin (BldA) [Mass fraction] 1.2 % Normal 0.0-2.0 [facility] Comment on above: Order Comment: Speci men Type: ARTERIAL BLOOD SPECIMEN Result Comment: Carb oxyhemoglobin Reference Range for Smokers: 2.0-8.0% Performed By: #### A LLBG ####[facility]ORYCLIA [id number] [address] CO2 (Bld) [Partial pressure] 45 mm Hg Normal 36-46 [facility] Comment on above: Order Comment: Speci men Type: ARTERIAL BLOOD SPECIMEN Performed By: #### A LLBG ####[facility]ORYCLIA [id number] [address] CO2 [Moles/Vol] 26.9 mmol/L Normal 22-28 [facility] Comment on above: Order Comment: Speci men Type: ARTERIAL BLOOD SPECIMEN Performed By: #### A LLBG ####[facility]ORYCLIA [id number] [address] CO2 adjusted to patient's actual temperature (Bld) [Partial pressure] 47 mmHg High 36-46 [facility] Comment on above: Order Comment: Speci men Type: ARTERIAL BLOOD SPECIMEN Performed By: #### A LLBG ####[facility]ORYCLIA [id number] [address] [place] Glucose [Mass/Vol] 141 mg/dL High 60-105 [facility] Comment on above: Order Comment: Speci men Type: ARTERIAL BLOOD SPECIMEN Performed By: #### A LLBG ####[facility]ORYCLIA [id number] [address] HCO3 (Bld) [Moles/Vol] 30 mmol/L High 22-26 [facility] Comment on above: Order Comment: Speci men Type: ARTERIAL BLOOD SPECIMEN Performed By: #### A LLBG ####[facility]ORYCLIA [id number] [address] Hematocrit (Bld) [Volume fraction] 35.8 % Low 39.0-51.0 [facility] Comment on above: Order Comment: Speci men Type: ARTERIAL BLOOD SPECIMEN Performed By: #### A LLBG ####[facility]ORYCLIA [id number] [address] Hemoglobin (Bld) [Mass/Vol] 11.6 g/dL Low 13.0-17.0 [facility] Comment on above: Order Comment: Speci men Type: ARTERIAL BLOOD SPECIMEN Performed By: #### A LLBG ####[facility]ORYCLIA [id number] [address] Methemoglobin (Bld) [Mass fraction] % Normal 0.0-1.5 [facility] Comment on above: Order Comment: Speci men Type: ARTERIAL BLOOD SPECIMEN Performed By: #### A LLBG ####[facility]ORYCLIA [id number] [address] O2 THERAPY Ventilator Normal [facility] Comment on above: Order Comment: Speci men Type: ARTERIAL BLOOD SPECIMEN Performed By: #### A LLBG ####[facility]ORYCLIA [id number] [address] Oxygen (Bld) [Partial pressure] 69 mm Hg Low 85-95 [facility] Comment on above: Order Comment: Speci men Type: ARTERIAL BLOOD SPECIMEN Performed By: #### A LLBG ####[facility]ORYCLIA [id number] [address] Oxygen adjusted to patient's actual temperature (Bld) [Partial pressure] 70.8 mmHg Low 85-95 [facility] Comment on above: Order Comment: Speci men Type: ARTERIAL BLOOD SPECIMEN Performed By: #### A LLBG ####[facility]ORYCLIA [id number] [address] OXYGEN SATURATION, ARTERIAL 94 % Low 95-98 [facility] Comment on above: Order Comment: Speci men Type: ARTERIAL BLOOD SPECIMEN Performed By: #### A LLBG ####[facility]ORYCLIA [id number] [address] Oxyhemoglobin (BldA) [Mass fraction] 93 % Low 95-98 [facility] Comment on above: Order Comment: Speci men Type: ARTERIAL BLOOD SPECIMEN Performed By: #### A LLBG ####[facility]ORYCLIA [id number] [address] [place] pH (Bld) 7.43 [pH] Normal 7.35-7.45 [facility] Comment on above: Order Comment: Speci men Type: ARTERIAL BLOOD SPECIMEN Performed By: #### A LLBG ####[facility]ORYCLIA [id number] [address] pH adjusted to patient's actual temperature (Bld) 7.43 Normal 7.35-7.45 [facility] Comment on above: Order Comment: Speci men Type: ARTERIAL BLOOD SPECIMEN Performed By: #### A LLBG ####[facility]ORYCLIA [id number] [address] [place] [facility] Potassium [Moles/Vol] 3.1 mmol/L Low 3.5-5.0 [facility] Comment on above: Order Comment: Speci men Type: ARTERIAL BLOOD SPECIMEN Performed By: #### A LLBG ####[facility]ORYCLIA [id number] [address] [place] Sodium [Moles/Vol] 145 mmol/L High 136-144 [facility] Comment on above: Order Comment: Speci men Type: ARTERIAL BLOOD SPECIMEN Performed By: #### A LLBG ####[facility]ORYCLIA [id number] [address] [place] ASPERGILLUS GALACTOMANNAN SE [...] is suspected. Performed By: #### A SGALS ####[facility] LABCLIA [id number] [place] AVEDESK [address] OF [facility] Galactomannan Ag IA Qn <0.50 Normal [facility] Comment on above: Order Comment: Speci men Type: BLOOD SPECIMEN Result Comment: Inde x Values are Interpreted as Follows:Negative specimens <0.50Positive specimens >=0.50 Performed By: #### A SGALS ####[facility] LABCLIA [id number] [place] AVED[employer]K [place] [id number] [facility] Basic metabolic 2000 panelon 06-03-2021 Anion gap [Moles/Vol] 8 mmol/L Low 9-18 [facility] Comment on above: Order Comment: Speci men Type: BLOOD SPECIMEN Performed By: #### 1 9123-9, 2777-1, 81579-3 ####[facility]ORYCLIA [id number] [address] [place] [facility] Calcium [Mass/Vol] 8.0 mg/dL Low 8.5-10.2 [facility] Comment on above: Order Comment: Speci men Type: BLOOD SPECIMEN Performed By: #### 1 9123-9, 2777-1, 78108-8 ####[facility]ORYCLIA [id number] [address] STATES [place] [facility] Chloride [Moles/Vol] 110 mmol/L High 97-105 [facility] Comment on above: Order Comment: Speci men Type: BLOOD SPECIMEN Performed By: #### 1 9123-9, 2777-1, 55756-1 ####[facility] [id number] [address] CO2 [Moles/Vol] 28 mmol/L Normal 22-30 [facility] Comment on above: Order Comment: Speci men Type: BLOOD SPECIMEN Performed By: #### 1 9123-9, 2777-1, 34195-3 ####[facility]ORYCL[facility] [id number] [address] [place] [facility] Creatinine [Mass/Vol] 0.75 mg/dL Normal 0.73-1.22 [facility] Comment on above: Order Comment: Speci men Type: BLOOD SPECIMEN Performed By: #### 1 9123-9, 2777-, 10588-5 ####[facility]ORYCLIA [id number] [address] [place] [facility] GFR/1.73 sq M.predicted MDRD (S/P/Bld) [Vol rate/Area] [...] GFR. Performed By: #### 1 9123-9, 2777-1, 82635-1 ####[facility]ORYCL[facility] [id number] [address] [place] Glucose [Mass/Vol] 141 [...] 1). Performed By: #### 1 9123-9, 2777-, 91430-6 ####[facility]ORY[facility] [id number] [address] [place] [facility] Potassium [Moles/Vol] 3.3 mmol/L Low 3.7-5.1 [facility] Comment on above: Order Comment: Speci men Type: BLOOD SPECIMEN Performed By: #### 1 9123-9, 2777, 46434-7 ####[facility]ORYCL[facility] [id number] [address] Sodium [Moles/Vol] 146 mmol/L High 136-144 [facility] Comment on above: Order Comment: Speci men Type: BLOOD SPECIMEN Performed By: #### 1 9123-9, 2777, 81384-7 ####[facility]ORYCLIA [id number] [address] Urea nitrogen [Mass/Vol] 10 mg/dL Normal 9-24 [facility] Comment on above: Order Comment: Speci men Type: BLOOD SPECIMEN Performed By: #### 1 9123-9, 2777-, 23996-3 ####[facility]ORYCL[facility] [id number] [address] [place] [facility] CASE MANAGEMon 06-03-2021 CASE MANAGEM Normal [facility] CBC panel Auto (Bld)on 06-03 Erythrocyte distribution width (RBC) [Ratio] 15.6 % High 11.5-15.0 [facility] Comment on above: Order Comment: Speci men Type: BLOOD SPECIMEN Performed By: #### 5 8410-2 ####[facility]ORYCLIA [id number] [address] Hematocrit (Bld) [Volume fraction] 36.9 % Low 39.0-51.0 [facility] Comment on above: Order Comment: Speci men Type: BLOOD SPECIMEN Performed By: #### 5 8410-2 ####[facility]ORYCL[facility] [id number] [address] Hemoglobin (Bld) [Mass/Vol] 11.1 g/dL Low 13.0-17.0 [facility] Comment on above: Order Comment: Speci men Type: BLOOD SPECIMEN Performed By: #### 5 8410-2 ####[facility]ORYCLIA [id number] [address] MCH (RBC) [Entitic mass] 27.0 pg Normal 26.0-34.0 [facility] Comment on above: Order Comment: Speci men Type: BLOOD SPECIMEN Performed By: #### 5 8410-2 ####[facility]ORYCLIA [id number] [address] MCHC (RBC) [Mass/Vol] 30.1 g/dL Low 30.5-36.0 [facility] Comment on above: Order Comment: Speci men Type: BLOOD SPECIMEN Performed By: #### 5 8410-2 ####[facility]ORYCLIA [id number] [address] MCV (RBC) [Entitic vol] 89.8 fL Normal 80.0-100.0 [facility] Comment on above: Order Comment: Speci men Type: BLOOD SPECIMEN Performed By: #### 5 8410-2 ####[facility]ORYCLIA [id number] [address] Nucleated RBC (Bld) [#/Vol] 10*3/uL Normal <0.01 [facility] Comment on above: Order Comment: Speci men Type: BLOOD SPECIMEN Performed By: #### 5 8410-2 ####[facility]ORYCLIA [id number] [address] Platelet mean volume (Bld) [Entitic vol] 10.5 fL Normal 9.0-12.7 [facility] Comment on above: Order Comment: Speci men Type: BLOOD SPECIMEN Performed By: #### 5 8410-2 ####[facility]ORYCLIA [id number] [address] [place] Platelets (Bld) [#/Vol] 196 10*3/uL Normal 150-400 [facility] Comment on above: Order Comment: Speci men Type: BLOOD SPECIMEN Performed By: #### 5 8410-2 ####[facility]ORYCLIA [id number] [address] RBC (Bld) [#/Vol] 4.11 10*6/uL Low 4.20-6.00 [facility] Comment on above: Order Comment: Speci men Type: BLOOD SPECIMEN Performed By: #### 5 8410-2 ####[facility]ORYCLIA [id number] [address] WBC (Bld) [#/Vol] 8.18 10*3/uL Normal 3.70-11.00 [facility] Comment on above: Order Comment: Speci men Type: BLOOD SPECIMEN Performed By: #### 5 8410-2 ####[facility]ORYCLIA [id number] [address] [facility] CONSULTon 06-03-2021 CONSULT Normal [facility] CONSULT PROGon 06-03-2021 CONSULT PROG Normal [facility] Gas and Carbon monoxide pane l (BldV)on 06-03-2021 Base excess Calc (BldV) [Moles/Vol] 1.4 mmol/L Normal 0-2 [facility] Comment on above: Order Comment: Speci men Type: VENOUS BLOOD SPECIMEN Performed By: #### 2 4344-4 ####[facility]ORYCLIA [id number] [place] [address] Body temperature 98.42 [degF] Normal [facility] Comment on above: Order Comment: Speci men Type: VENOUS BLOOD SPECIMEN Performed By: #### 2 4344-4 ####[facility]ORYCLIA [id number] [address] CALCIUM IONIZED, PH CORRECTED 1.09 mmol/L Normal 1.08-1.30 [facility] Comment on above: Order Comment: Speci men Type: VENOUS BLOOD SPECIMEN Performed By: #### 2 4344-4 ####[facility]ORYCLIA [id number] [address] Calcium.ionized (BldV) [Mass/Vol] 1.12 mmol/L Normal 1.08-1.30 [facility] Comment on above: Order Comment: Speci men Type: VENOUS BLOOD SPECIMEN Performed By: #### 2 4344-4 ####[facility]ORYCLIA [id number] [address] Carboxyhemoglobin (BldV) [Mass fraction] 1.7 % Normal 0.0-2.0 [facility] Comment on above: Order Comment: Speci men Type: VENOUS BLOOD SPECIMEN Result Comment: Carb oxyhemoglobin Reference Range for Smokers: 2.0-8.0% Performed By: #### 2 4344-4 ####[facility]ORYCLIA [id number] [address] CO2 (BldV) [Partial pressure] 50 mm[Hg] Normal 42-55 [facility] Comment on above: Order Comment: Speci men Type: VENOUS BLOOD SPECIMEN Performed By: #### 2 4344-4 ####[facility]ORYCLIA [id number] [address] CO2 [Moles/Vol] 24.9 mmol/L Low 25-29 [facility] Comment on above: Order Comment: Speci men Type: VENOUS BLOOD SPECIMEN Performed By: #### 2 4344-4 ####[facility]ORYCLIA [id number] [address] CO2 adjusted to patient's actual temperature (BldV) [Partial pressure] 50 mmHg Normal 42-55 [facility] Comment on above: Order Comment: Speci men Type: VENOUS BLOOD SPECIMEN Performed By: #### 2 4344-4 ####[facility]ATORYCLIA [id number] [place], [place] [address] [place] [address] [place] FIO2 30 % Normal [facility] Comment on above: Order Comment: Speci men Type: VENOUS BLOOD SPECIMEN Performed By: #### 2 4344-4 ####[facility]ATORYCLIA [id number] [address] Glucose [Mass/Vol] 191 mg/dL High 60-105 [facility] Comment on above: Order Comment: Speci men Type: VENOUS BLOOD SPECIMEN Performed By: #### 2 4344-4 ####[facility]ORYCLIA [id number] [address] HCO3 (Bld) [Moles/Vol] 27.1 mmol/L Normal 24-28 [facility] Comment on above: Order Comment: Speci men Type: VENOUS BLOOD SPECIMEN Performed By: #### 2 4344-4 ####[facility]ORYCLIA [id number] [address] Hematocrit (Bld) [Volume fraction] 36.2 % Low 39.0-51.0 [facility] Comment on above: Order Comment: Speci men Type: VENOUS BLOOD SPECIMEN Performed By: #### 2 4344-4 ####[facility]ORYCLIA [id number] [address] Hemoglobin (Bld) [Mass/Vol] 11.8 g/dL Low 13.0-17.0 [facility] Comment on above: Order Comment: Speci men Type: VENOUS BLOOD SPECIMEN Performed By: #### 2 4344-4 ####[facility]ORYCLIA [id number] [address] INHALED TIDAL VOLUME (ML) 530 Normal [facility] Comment on above: Order Comment: Speci men Type: VENOUS BLOOD SPECIMEN Performed By: #### 2 4344-4 ####[facility]ATORYCLIA [id number] [place] [address] [facility] [place] Methemoglobin (Bld) [Mass fraction] % Normal 0.0-1.5 [facility] Comment on above: Order Comment: Speci men Type: VENOUS BLOOD SPECIMEN Performed By: #### 2 4344-4 ####[facility]ORYCLIA [id number] [place] [address] [facility] [place] O2 THERAPY Ventilator Normal [facility] Comment on above: Order Comment: Speci men Type: VENOUS BLOOD SPECIMEN Performed By: #### 2 4344-4 ####[facility]ATORYCLIA [id number] [place], [place] [address] [place] [address] [place] Oxygen (BldV) [Partial pressure] 69 mm[Hg] High 35-45 [facility] Comment on above: Order Comment: Speci men Type: VENOUS BLOOD SPECIMEN Performed By: #### 2 4344-4 ####[facility]ORYCLIA [id number] [place], [place] [address] [place] [address] [place] Oxygen adjusted to patient's actual temperature (BldV) [Partial pressure] 68.8 mmHg High 35-45 [facility] Comment on above: Order Comment: Speci men Type: VENOUS BLOOD SPECIMEN Performed By: #### 2 4344-4 ####[facility]ORYCLIA [id number] [place], [place] [address] [place] [address] [place] Oxygen saturation in Blood 92.4 % High 60-85 [facility] Comment on above: Order Comment: Speci men Type: VENOUS BLOOD SPECIMEN Performed By: #### 2 4344-4 ####[facility]ORYCLIA [id number] [place], [place] [address] [place] [address] [place] Oxyhemoglobin (BldV) [Mass fraction] 90 % High 60-85 [facility] Comment on above: Order Comment: Speci men Type: VENOUS BLOOD SPECIMEN Performed By: #### 2 4344-4 ####[facility]ORYCLIA [id number] [address] PEEP/CPAP 8 cmH2O Normal [facility] Comment on above: Order Comment: Speci men Type: VENOUS BLOOD SPECIMEN Performed By: #### 2 4344-4 ####[facility]ORYCLIA [id number] [address] pH (BldV) 7.35 [pH] Normal 7.32-7.42 [facility] Comment on above: Order Comment: Speci men Type: VENOUS BLOOD SPECIMEN Performed By: #### 2 4344-4 ####[facility]ORYCLIA [id number] [address] pH adjusted to patient's actual temperature (BldV) 7.35 Normal 7.32-7.42 [facility] Comment on above: Order Comment: Speci men Type: VENOUS BLOOD SPECIMEN Performed By: #### 2 4344-4 ####[facility]ORYCLIA [id number] [address] Potassium [Moles/Vol] 3.6 mmol/L Normal 3.5-5.0 [facility] Comment on above: Order Comment: Speci men Type: VENOUS BLOOD SPECIMEN Performed By: #### 2 4344-4 ####[facility]ORYCLIA [id number] [address] SET VENTILATOR RESPIRATORY RATE (BPM) 18 BPM Normal [facility] Comment on above: Order Comment: Speci men Type: VENOUS BLOOD SPECIMEN Performed By: #### 2 4344-4 ####[facility]ORYCLIA [id number] [address] Sodium [Moles/Vol] 141 mmol/L Normal 136-144 [facility] Comment on above: Order Comment: Speci men Type: VENOUS BLOOD SPECIMEN Performed By: #### 2 4344-4 ####[facility]ORYCLIA [id number] [address] HIV 1+2 Ab IA Qlon 01-28-202 2 HIV 1 and 2 Ab IA.rapid Nom Normal [facility] Comment on above: Order Comment: Speci men Type: BLOOD SPECIMEN Result Comment: Test not indicated. Performed By: #### 3 1201-7, TOXMG ####[facility]ORYCLIA [id number] [place] [address] [place] HIV 1+2 Ab+HIV1 p24 Ag IA Ql Non-Reactive Normal Nonreactive [facility] Comment on above: Order Comment: Speci men Type: BLOOD SPECIMEN Result Comment: [place] Rev. Code 3701.243(E): This information has been [...] diagnoses. Performed By: #### 3 1201-7, TOXMG ####[facility]ORYCLIA [id number] [address] HIVINT Normal [facility] Comment on above: Order Comment: Speci men Type: BLOOD SPECIMEN Result Comment: No e vidence of HIV-1 or HIV-2 infection. Should recent infection be suspected, repeat testing may be considered 2-3 weeks after this draw. Performed By: #### 3 1201-7, TOXMG ####[facility]ORYCLIA [id number] [address] [place] Magnesium SerPl-mCncon 06-03 Magnesium [Mass/Vol] 1.9 mg/dL Normal 1.7-2.3 [facility] Comment on above: Order Comment: Speci men Type: BLOOD SPECIMEN Performed By: #### 1 9123-9, 2777-1, 31348-3 ####[facility]ORYCLIA [id number] [place] [address] [place] NUTRITIONon 06-03-2021 NUTRITION Normal [facility] Phosphate SerPl-mCncon 06-03 Phosphate [Mass/Vol] 1.9 mg/dL Low 2.7-4.8 [facility] Comment on above: Order Comment: Speci men Type: BLOOD SPECIMEN Performed By: #### 1 9123-9, 2777-1, 68589-3 ####[facility]ORYCLIA [id number] [address] TOXOPLASMOSIS IGM AND IGG AB on [...] IU/mL Performed By: #### 3 1201-7, TOXMG ####[facility]ORYCLIA [id number] [address] TOXO IGM QUAL Negative Normal Negative [facility] Comment on above: Order Comment: Speci men Type: BLOOD SPECIMEN Result Comment: No s erological evidence of recent exposure to Toxoplasma gondii.Negative <0.9 IndexEquivocal 0.9-0.99 IndexPositive >=1.0 Index Performed By: #### 3 1201-7, TOXMG ####[facility]ORYCLIA [id number] [address] [place] US DVT LOWER BILon US DVT LOWER RAINER Normal [facility] XR CHEST 1V FRONTALon 2021 XR CHEST 1V FRONTAL Normal [facility] ARTERIAL BLOOD GASESon 06-02 Base excess Calc (Bld) [Moles/Vol] 2 mmol/L Normal 0-2 [facility] Comment on above: Order Comment: Speci men Type: ARTERIAL BLOOD SPECIMEN Performed By: #### A LLBG ####[facility]ORYCLIA [id number] [address] Body temperature 99.32 [degF] Normal [facility] Comment on above: Order Comment: Speci men Type: ARTERIAL BLOOD SPECIMEN Performed By: #### A LLBG ####[facility]ORYCLIA [id number] [address] CALCIUM IONIZED, PH CORRECTED 1.15 mmol/L Normal 1.08-1.30 [facility] Comment on above: Order Comment: Speci men Type: ARTERIAL BLOOD SPECIMEN Performed By: #### A LLBG ####[facility]ORYCLIA [id number] [address] Calcium.ionized (BldV) [Mass/Vol] 1.13 mmol/L Normal 1.08-1.30 [facility] Comment on above: Order Comment: Speci men Type: ARTERIAL BLOOD SPECIMEN Performed By: #### A LLBG ####[facility]ORYCLIA [id number] [address] Carboxyhemoglobin (BldA) [Mass fraction] 1.4 % Normal 0.0-2.0 [facility] Comment on above: Order Comment: Speci men Type: ARTERIAL BLOOD SPECIMEN Result Comment: Carb oxyhemoglobin Reference Range for Smokers: 2.0-8.0% Performed By: #### A LLBG ####[facility]ORYCLIA [id number] [address] CO2 (Bld) [Partial pressure] 39 mm Hg Normal 36-46 [facility] Comment on above: Order Comment: Speci men Type: ARTERIAL BLOOD SPECIMEN Performed By: #### A LLBG ####[facility]ORYCLIA [id number] [address] [place] CO2 [Moles/Vol] 23.4 mmol/L Normal 22-28 [facility] Comment on above: Order Comment: Speci men Type: ARTERIAL BLOOD SPECIMEN Performed By: #### A LLBG ####[facility]ORYCLIA [id number] [address] CO2 adjusted to patient's actual temperature (Bld) [Partial pressure] 40 mmHg Normal 36-46 [facility] Comment on above: Order Comment: Speci men Type: ARTERIAL BLOOD SPECIMEN Performed By: #### A LLBG ####[facility]ATORYCLIA [id number] [address] Glucose [Mass/Vol] 156 mg/dL High 60-105 [facility] Comment on above: Order Comment: Speci men Type: ARTERIAL BLOOD SPECIMEN Performed By: #### A LLBG ####[facility]ORYCLIA [id number] [address] HCO3 (Bld) [Moles/Vol] 26 mmol/L Normal 22-26 [facility] Comment on above: Order Comment: Speci men Type: ARTERIAL BLOOD SPECIMEN Performed By: #### A LLBG ####[facility]ORYCLIA [id number] [address] Hematocrit (Bld) [Volume fraction] 33.9 % Low 39.0-51.0 [facility] Comment on above: Order Comment: Speci men Type: ARTERIAL BLOOD SPECIMEN Performed By: #### A LLBG ####[facility]ORYCLIA [id number] [address] OF [facility] Hemoglobin (Bld) [Mass/Vol] 11.0 g/dL Low 13.0-17.0 [facility] Comment on above: Order Comment: Speci men Type: ARTERIAL BLOOD SPECIMEN Performed By: #### A LLBG ####[facility]ORYCLIA [id number] [address] Methemoglobin (Bld) [Mass fraction] % Normal 0.0-1.5 [facility] Comment on above: Order Comment: Speci men Type: ARTERIAL BLOOD SPECIMEN Performed By: #### A LLBG ####[facility]ORYCLIA [id number] [address] O2 THERAPY Ventilator Normal [facility] Comment on above: Order Comment: Speci men Type: ARTERIAL BLOOD SPECIMEN Performed By: #### A LLBG ####[facility]ORYCLIA [id number] [place], [place] [id number] [place] [address] Oxygen (Bld) [Partial pressure] 70 mm Hg Low 85-95 [facility] Comment on above: Order Comment: Speci men Type: ARTERIAL BLOOD SPECIMEN Performed By: #### A LLBG ####[facility]ORYCLIA [id number] [address] Oxygen adjusted to patient's actual temperature (Bld) [Partial pressure] 72.2 mmHg Low 85-95 [facility] Comment on above: Order Comment: Speci men Type: ARTERIAL BLOOD SPECIMEN Performed By: #### A LLBG ####[facility]ORYCLIA [id number] [address] OXYGEN SATURATION, ARTERIAL 96 % Normal 95-98 [facility] Comment on above: Order Comment: Speci men Type: ARTERIAL BLOOD SPECIMEN Performed By: #### A LLBG ####[facility]ORYCLIA [id number] [address] Oxyhemoglobin (BldA) [Mass fraction] 94 % Low 95-98 [facility] Comment on above: Order Comment: Speci men Type: ARTERIAL BLOOD SPECIMEN Performed By: #### A LLBG ####[facility]ORYCLIA [id number] [address] [place] pH (Bld) 7.43 [pH] Normal 7.35-7.45 [facility] Comment on above: Order Comment: Speci men Type: ARTERIAL BLOOD SPECIMEN Performed By: #### A LLBG ####[facility]ORYCLIA [id number] [address] pH adjusted to patient's actual temperature (Bld) 7.42 Normal 7.35-7.45 [facility] Comment on above: Order Comment: Speci men Type: ARTERIAL BLOOD SPECIMEN Performed By: #### A LLBG ####[facility]ORYCLIA [id number] [address] [place] Potassium [Moles/Vol] 2.6 mmol/L Low 3.5-5.0 [facility] Comment on above: Order Comment: Speci men Type: ARTERIAL BLOOD SPECIMEN Performed By: #### A LLBG ####[facility]ORYCLIA [id number] [address] [place] [facility] Sodium [Moles/Vol] 142 mmol/L Normal 136-144 [facility] Comment on above: Order Comment: Speci men Type: ARTERIAL BLOOD SPECIMEN Performed By: #### A LLBG ####[facility]ORYCLIA [id number] [address] [place] Ammonia Plas-sCncon 06-02-19 22 Ammonia (P) [Moles/Vol] 20 umol/L Normal 16-60 [facility] Comment on above: Order Comment: Speci men Type: BLOOD SPECIMEN Performed By: #### 1 6362-6 ####[facility]ORYCLIA [id number] [address] [place] Bacteria CSF Culton 06-02-19 22 Bacteria identified Cx Nom (CSF) CULTURE, CSF: No growth 14 days GRAM STAIN: No organisms seen Rare Polymorphonuclear leukocytes Gram stain performed on cytospun specimen. Normal [facility] Comment on above: Performed By: #### 6 06-4 ####[facility]ORYCLIA [id number] [address] [place] Basic metabolic 2000 panelon 06-02-2021 Anion gap [Moles/Vol] 10 mmol/L Normal 9-18 [facility] Comment on above: Order Comment: Speci men Type: BLOOD SPECIMEN Performed By: #### 2 4321-2, , 2776-05 ####[facility]ORYCLIA [id number] [address] [place] [facility] Calcium [Mass/Vol] 8.1 mg/dL Low 8.5-10.2 [facility] Comment on above: Order Comment: Speci men Type: BLOOD SPECIMEN Performed By: #### 2 4321-2, , 2776 ####[facility]ORYCLIA [id number] [place], [place] [address] [place] [address] [place] Chloride [Moles/Vol] 108 mmol/L High 97-105 [facility] Comment on above: Order Comment: Speci men Type: BLOOD SPECIMEN Performed By: #### 2 4321-2, , 2776-05 ####[facility]ORYCLIA [id number] [address] [place] CO2 [Moles/Vol] 24 mmol/L Normal 22-30 [facility] Comment on above: Order Comment: Speci men Type: BLOOD SPECIMEN Performed By: #### 2 1-2, , 2776-05 ####[facility]ORYCLIA [id number] [address] [place] Creatinine [Mass/Vol] 0.78 mg/dL Normal 0.73-1.22 [facility] Comment on above: Order Comment: Speci men Type: BLOOD SPECIMEN Performed By: #### 2 1-2, , 2776-05 ####[facility]ORYCLIA [id number] [address] [place] GFR/1.73 sq M.predicted [...] Performed By: #### 2 4321-2, , 2776-05 ####[facility]ORYCLIA [id number] [place] [address] [place] Glucose [Mass/Vol] 162 [...] Performed By: #### 2 1-2, , 2776-05 ####[facility]ORYCLIA [id number] [address] [place] Potassium [Moles/Vol] 2.7 mmol/L Low 3.7-5.1 [facility] Comment on above: Order Comment: Speci men Type: BLOOD SPECIMEN Performed By: #### 2 1-2, , 2776-05 ####[facility]ORYCL[facility] [id number] [address] [place] Sodium [Moles/Vol] 142 mmol/L Normal 136-144 [facility] Comment on above: Order Comment: Speci men Type: BLOOD SPECIMEN Performed By: #### 2 4321-2, , 2776-05 ####[facility]ORYCLIA [id number] [address] [place] Urea nitrogen [Mass/Vol] 12 mg/dL Normal 9-24 [facility] Comment on above: Order Comment: Speci men Type: BLOOD SPECIMEN Performed By: #### 2 1-2, , 2776-05 ####[facility]ORYCLIA [id number] [address] CBC panel Auto (Bld)on 06-02 Erythrocyte distribution width (RBC) [Ratio] 15.0 % Normal 11.5-15.0 [facility] Comment on above: Order Comment: Speci men Type: BLOOD SPECIMEN Performed By: #### 5 8410-2 ####[facility]ORYCLIA [id number] [address] Hematocrit (Bld) [Volume fraction] 34.3 % Low 39.0-51.0 [facility] Comment on above: Order Comment: Speci men Type: BLOOD SPECIMEN Performed By: #### 5 8410-2 ####[facility]ORY[facility] [id number] [address] Hemoglobin (Bld) [Mass/Vol] 10.3 g/dL Low 13.0-17.0 [facility] Comment on above: Order Comment: Speci men Type: BLOOD SPECIMEN Performed By: #### 5 8410-2 ####[facility] [id number] [address] MCH (RBC) [Entitic mass] 27.0 pg Normal 26.0-34.0 [facility] Comment on above: Order Comment: Speci men Type: BLOOD SPECIMEN Performed By: #### 5 8410-2 ####[facility] [id number] [address] MCHC (RBC) [Mass/Vol] 30.0 g/dL Low 30.5-36.0 [facility] Comment on above: Order Comment: Speci men Type: BLOOD SPECIMEN Performed By: #### 5 8410-2 ####[facility]ORY[facility] [id number] [address] MCV (RBC) [Entitic vol] 90.0 fL Normal 80.0-100.0 [facility] Comment on above: Order Comment: Speci men Type: BLOOD SPECIMEN Performed By: #### 5 8410-2 ####[facility]ORYCLIA [id number] [address] Nucleated RBC (Bld) [#/Vol] 10*3/uL Normal <0.01 [facility] Comment on above: Order Comment: Speci men Type: BLOOD SPECIMEN Performed By: #### 5 8410-2 ####[facility]ORY[facility]IA [id number] [address] Platelet mean volume (Bld) [Entitic vol] 10.2 fL Normal 9.0-12.7 [facility] Comment on above: Order Comment: Speci men Type: BLOOD SPECIMEN Performed By: #### 5 8410-2 ####[facility]ORYCLIA [id number] [address] Platelets (Bld) [#/Vol] 194 10*3/uL Normal 150-400 [facility] Comment on above: Order Comment: Speci men Type: BLOOD SPECIMEN Performed By: #### 5 8410-2 ####[facility]ORY[facility] [id number] [address] RBC (Bld) [#/Vol] 3.81 10*6/uL Low 4.20-6.00 [facility] Comment on above: Order Comment: Speci men Type: BLOOD SPECIMEN Performed By: #### 5 8410-2 ####[facility]ORYCL[facility] [id number] [address] WBC (Bld) [#/Vol] 9.22 10*3/uL Normal 3.70-11.00 [facility] Comment on above: Order Comment: Speci men Type: BLOOD SPECIMEN Performed By: #### 5 8410-2 ####[facility]ORYCLIA [id number] [address] CONSULT PROGon 06-02-2021 CONSULT PROG Normal [facility] CSF MANUAL DIFFon 06-02-2021 DIF TTL, CSF 25 cells counted Normal [facility] Comment on above: Order Comment: Speci men Type: CEREBROSPINAL FLUID Performed By: #### 3 4563-7, [id number], [id number] ####[facility]ORYCLIA [id number] [address] [place] LYMPH%, CSF 4 % Low 50-90 [facility] Comment on above: Order Comment: Speci men Type: CEREBROSPINAL FLUID Performed By: #### 3 4563-7, [id number], [id number] ####[facility]ORYCLIA [id number] [address] [place] MACRO%, CSF 4 % High <1 [facility] Comment on above: Order Comment: Speci men Type: CEREBROSPINAL FLUID Performed By: #### 3 4563-7, [id number], [id number] ####[facility]ORYCLIA [id number] [address] [place] MONO%, CSF 20 % Normal 10-50 [facility] Comment on above: Order Comment: Speci men Type: CEREBROSPINAL FLUID Performed By: #### 3 4563-7, [id number], [id number] ####[facility]ORYCLIA [id number] [address] [place] NEUT%, CSF 72 % High 0-3 [facility] Comment on above: Order Comment: Speci men Type: CEREBROSPINAL FLUID Performed By: #### 3 4563-7, [id number], [id number] ####[facility]ORYCLIA [id number] [address] CSF PATHOLOGIST INTERP (LAB REFLEX ORDER-NO BILL)on 06-02-2021 CSF STAFF REVIEW Negative Normal [facility] Comment on above: Order Comment: Speci men Type: CEREBROSPINAL FLUID Performed By: #### 3 4563-7, [id number], [id number] ####[facility]ORYCLIA [id number] [address] Pathologist name Reviewed by Amador Stevens MD [facility] Comment on above: Order Comment: Speci men Type: CEREBROSPINAL FLUID Performed By: #### 3 4563-7, [id number], [id number] ####[facility]ORYCLIA [id number] [address] Cell count panel (CSF)on Clarity (CSF) Clear Normal Clear [facility] Comment on above: Order Comment: Speci men Type: CEREBROSPINAL FLUID Performed By: #### 3 4563-7, [id number], [id number] ####[facility]ORYCLIA [id number] [address] Clarity (Unsp spec) Not Indicated Normal Clear [facility] Comment on above: Order Comment: Speci men Type: CEREBROSPINAL FLUID Performed By: #### 3 4563-7, [id number], [id number] ####[facility]ORYCLIA [id number] [address] Color (CSF) Colorless Normal Colorless [facility] Comment on above: Order Comment: Speci men Type: CEREBROSPINAL FLUID Performed By: #### 3 4563-7, [id number], [id number] ####[facility]ORYCLIA [id number] [address] Color (Spun CSF) Not Indicated Normal Colorless [facility] Comment on above: Order Comment: Speci men Type: CEREBROSPINAL FLUID Performed By: #### 3 4563-7, [id number], [id number] ####[facility]ORYCLIA [id number] [address] CSF TUBE NUMBER Sterile Container Normal [facility] Comment on above: Order Comment: Speci men Type: CEREBROSPINAL FLUID Performed By: #### 3 4563-7, [id number], [id number] ####[facility]ORYCLIA [id number] [address] RBC Manual cnt (CSF) [#/Vol] 117 cells/uL High 0-5 [facility] Comment on above: Order Comment: Speci men Type: CEREBROSPINAL FLUID Performed By: #### 3 4563-7, [id number], [id number] ####[facility]CLIA [id number] [address] WBC Manual cnt (CSF) [#/Vol] 1 cells/uL Normal 0-5 [facility] Comment on above: Order Comment: Speci men Type: CEREBROSPINAL FLUID Performed By: #### 3 4563-7, [id number], [id number] ####[facility]ORYCLIA [id number] [address] Glucose CSF-mCncon 2 Glucose (CSF) [Mass/Vol] [...] Glucose HK (GLUC3) [package insert V 12.0 Fijian]. [employer], [place], [place]. September 2015. 2. Michelle Moore, Loki HGarfield (2015). Chapter 7: Glucose and Lactate. F. Irina rose al.(eds.), Cerebrospinal Fluid in Clinical Neurology. [place]: [employer]. Performed By: #### 2 342-4 ####[facility]ORYCLIA [id number] [address] HEPATIC FUNCTION PNLon 06-02 Albumin [Mass/Vol] 3.2 g/dL Low 3.9-4.9 [facility] Comment on above: Order Comment: Speci men Type: BLOOD SPECIMEN Performed By: #### H [place], 47533-0 ####[facility]ORYCLIA [id number] [address] ALP [Catalytic activity/Vol] 67 U/L Normal 38-113 [facility] Comment on above: Order Comment: Speci men Type: BLOOD SPECIMEN Performed By: #### [place], 26[address]-8 ####[facility]ORYCLIA [id number] [address] [place] ALT With P-5'-P [Catalytic activity/Vol] 16 U/L Normal 10-54 [facility] Comment on above: Order Comment: Speci men Type: BLOOD SPECIMEN Performed By: #### [place], [address]-3 ####[facility]ORYCLIA [id number] [address] AST With P-5'-P [Catalytic activity/Vol] 25 U/L Normal 14-40 [facility] Comment on above: Order Comment: Speci men Type: BLOOD SPECIMEN Performed By: #### [place], [address]-2 ####[facility]ORYCLIA [id number] [address] Bilirubin [Mass/Vol] 0.2 mg/dL Normal 0.2-1.3 [facility] Comment on above: Order Comment: Speci men Type: BLOOD SPECIMEN Performed By: #### [place] KATHIE, 63172-1 ####[facility]ORYCLIA [id number] [address] Bilirubin.conjugated [Mass/Vol] mg/dL Normal <0.2 [facility] Comment on above: Order Comment: Speci men Type: BLOOD SPECIMEN Performed By: #### [place], [address]-7 ####[facility]ORYCLIA [id number] [address] Protein [Mass/Vol] 5.8 g/dL Low 6.3-8.0 [facility] Comment on above: Order Comment: Speci men Type: BLOOD SPECIMEN Performed By: #### [place], [address]-4 ####[facility]ORYCLIA [id number] [address] MRI BRAIN WO/W IVCONon 06-02 MRI BRAIN WO/W IVCON Normal [facility] Magnesium SerPl-mCncon 06-02 Magnesium [Mass/Vol] 2.0 mg/dL Normal 1.7-2.3 [facility] Comment on above: Order Comment: Speci men Type: BLOOD SPECIMEN Performed By: #### 2 4321-2, 06864-2, 2777-1 ####[facility]ORYCLIA [id number] [address] [facility] Natri[facility]tic peptide.B prohormone N-Terminal [Mass/Vol] 296 pg/mL High <125 [facility] Comment on above: Order Comment: Speci men Type: BLOOD SPECIMEN Performed By: #### H FP, 90905-3 ####[facility]ORYCLIA [id number] [address] OF [facility] POTASSIUM BLDon 06-02-2021 Potassium [Moles/Vol] 3.2 mmol/L Low 3.7-5.1 [facility] Comment on above: Order Comment: Speci men Type: BLOOD SPECIMEN Performed By: #### K 1 ####[facility]ORYCLIA [id number] [address] Phosphate [facility] 06-02 Phosphate [Mass/Vol] 2.1 mg/dL Low 2.7-4.8 [facility] Comment on above: Order Comment: Speci men Type: BLOOD SPECIMEN Performed By: #### 2 4321-2, 68383-6, 2776-05 ####[facility]ORYCLIA [id number] [address] OF [facility] Vancomycin random [...] clinical situation. Performed By: #### 4 091-5 ####[facility]ORYCLIA [id number] [address] OF [facility] ALLIED HEALTHon 06-01-2021 ALLIED HEALTH Normal [facility] ALLIED HEALTH Normal [facility] ALLIED HEALTH Normal [facility] ARTERIAL BLOOD GASESon 06-01 Base excess Calc (Bld) [Moles/Vol] 1 mmol/L Normal 0-2 [facility] Comment on above: Order Comment: Speci men Type: ARTERIAL BLOOD SPECIMEN Performed By: #### A LLBG ####[facility]ORYCLIA [id number] [address] Body temperature 97.52 [degF] Normal [facility] Comment on above: Order Comment: Speci men Type: ARTERIAL BLOOD SPECIMEN Performed By: #### A LLBG ####[facility]ORYCLIA [id number] [address] CALCIUM IONIZED, PH CORRECTED 1.13 mmol/L Normal 1.08-1.30 [facility] Comment on above: Order Comment: Speci men Type: ARTERIAL BLOOD SPECIMEN Performed By: #### A LLBG ####[facility]ORYCLIA [id number] [address] STATES OF [facility] Calcium.ionized (BldV) [Mass/Vol] 1.12 mmol/L Normal 1.08-1.30 [facility] Comment on above: Order Comment: Speci men Type: ARTERIAL BLOOD SPECIMEN Performed By: #### A LLBG ####[facility]ORYCLIA [id number] [address] OF [facility] Carboxyhemoglobin (BldA) [Mass fraction] 1.6 % Normal 0.0-2.0 [facility] Comment on above: Order Comment: Speci men Type: ARTERIAL BLOOD SPECIMEN Result Comment: Carb oxyhemoglobin Reference Range for Smokers: 2.0-8.0% Performed By: #### A LLBG ####[facility]ORYCLIA [id number] [address] CO2 (Bld) [Partial pressure] 41 mm Hg Normal 36-46 [facility] Comment on above: Order Comment: Speci men Type: ARTERIAL BLOOD SPECIMEN Performed By: #### A LLBG ####[facility]ORYCLIA [id number] [address] CO2 [Moles/Vol] 23.0 mmol/L Normal 22-28 [facility] Comment on above: Order Comment: Speci men Type: ARTERIAL BLOOD SPECIMEN Performed By: #### A LLBG ####[facility]ORYCLIA [id number] [address] CO2 adjusted to patient's actual temperature (Bld) [Partial pressure] 40 mmHg Normal 36-46 [facility] Comment on above: Order Comment: Speci men Type: ARTERIAL BLOOD SPECIMEN Performed By: #### A LLBG ####[facility]ORYCLIA [id number] [address] FIO2 40 % Normal [facility] Comment on above: Order Comment: Speci men Type: ARTERIAL BLOOD SPECIMEN Performed By: #### A LLBG ####[facility]ORYCLIA [id number] [address] Glucose [Mass/Vol] 127 mg/dL High 60-105 [facility] Comment on above: Order Comment: Speci men Type: ARTERIAL BLOOD SPECIMEN Performed By: #### A LLBG ####[facility]ORYCLIA [id number] [address] HCO3 (Bld) [Moles/Vol] 25 mmol/L Normal 22-26 [facility] Comment on above: Order Comment: Speci men Type: ARTERIAL BLOOD SPECIMEN Performed By: #### A LLBG ####[facility]ORYCLIA [id number] [address] Hematocrit (Bld) [Volume fraction] 33.7 % Low 39.0-51.0 [facility] Comment on above: Order Comment: Speci men Type: ARTERIAL BLOOD SPECIMEN Performed By: #### A LLBG ####[facility]ORYCLIA [id number] [address] [place] Hemoglobin (Bld) [Mass/Vol] 10.9 g/dL Low 13.0-17.0 [facility] Comment on above: Order Comment: Speci men Type: ARTERIAL BLOOD SPECIMEN Performed By: #### A LLBG ####[facility]ORYCLIA [id number] [address] INHALED TIDAL VOLUME (ML) 500 Normal [facility] Comment on above: Order Comment: Speci men Type: ARTERIAL BLOOD SPECIMEN Performed By: #### A LLBG ####[facility]ORYCLIA [id number] [address] INVASIVE VENTILATOR MODE PRVC=Pressure Regulated Volume Control Normal [facility] Comment on above: Order Comment: Speci men Type: ARTERIAL BLOOD SPECIMEN Performed By: #### A LLBG ####[facility]ORYCLIA [id number] [address] Methemoglobin (Bld) [Mass fraction] % Normal 0.0-1.5 [facility] Comment on above: Order Comment: Speci men Type: ARTERIAL BLOOD SPECIMEN Performed By: #### A LLBG ####[facility]ORYCLIA [id number] [address] [place] O2 THERAPY Ventilator Normal [facility] Comment on above: Order Comment: Speci men Type: ARTERIAL BLOOD SPECIMEN Performed By: #### A LLBG ####[facility]ORYCLIA [id number] [address] [place] Oxygen (Bld) [Partial pressure] 64 mm Hg Low 85-95 [facility] Comment on above: Order Comment: Speci men Type: ARTERIAL BLOOD SPECIMEN Performed By: #### A LLBG ####[facility]ORYCLIA [id number] [address] Oxygen adjusted to patient's actual temperature (Bld) [Partial pressure] 61.8 mmHg Low 85-95 [facility] Comment on above: Order Comment: Speci men Type: ARTERIAL BLOOD SPECIMEN Performed By: #### A LLBG ####[facility]ORYCLIA [id number] [place] [address] OXYGEN SATURATION, ARTERIAL 94 % Low 95-98 [facility] Comment on above: Order Comment: Speci men Type: ARTERIAL BLOOD SPECIMEN Performed By: #### A LLBG ####[facility]ORYCLIA [id number] [address] Oxyhemoglobin (BldA) [Mass fraction] 92 % Low 95-98 [facility] Comment on above: Order Comment: Speci men Type: ARTERIAL BLOOD SPECIMEN Performed By: #### A LLBG ####[facility]ORYCLIA [id number] [address] PEEP/CPAP 5 cmH2O Normal [facility] Comment on above: Order Comment: Speci men Type: ARTERIAL BLOOD SPECIMEN Performed By: #### A LLBG ####[facility]ORATORYCLIA [id number] [address] pH (Bld) 7.40 [pH] Normal 7.35-7.45 [facility] Comment on above: Order Comment: Speci men Type: ARTERIAL BLOOD SPECIMEN Performed By: #### A LLBG ####[facility]ATORYCLIA [id number] [address] pH adjusted to patient's actual temperature (Bld) 7.41 Normal 7.35-7.45 [facility] Comment on above: Order Comment: Speci men Type: ARTERIAL BLOOD SPECIMEN Performed By: #### A LLBG ####[facility]ORYCLIA [id number] [address] Potassium [Moles/Vol] 3.1 mmol/L Low 3.5-5.0 [facility] Comment on above: Order Comment: Speci men Type: ARTERIAL BLOOD SPECIMEN Performed By: #### A LLBG ####[facility]ORYCLIA [id number] [address] SET VENTILATOR RESPIRATORY RATE (BPM) 18 BPM Normal [facility] Comment on above: Order Comment: Speci men Type: ARTERIAL BLOOD SPECIMEN Performed By: #### A LLBG ####[facility]ORYCLIA [id number] [address] Sodium [Moles/Vol] 141 mmol/L Normal 136-144 [facility] Comment on above: Order Comment: Speci men Type: ARTERIAL BLOOD SPECIMEN Performed By: #### A LLBG ####[facility]ORYCLIA [id number] [address] BASE DEFICIT, ARTERIAL -1.0 mmol/L Normal -2-0 [facility] Comment on above: Order Comment: Speci men Type: ARTERIAL BLOOD SPECIMEN Performed By: #### A LLBG ####[facility]ORYCLIA [id number] [address] Body temperature 98.24 [degF] Normal [facility] Comment on above: Order Comment: Speci men Type: ARTERIAL BLOOD SPECIMEN Performed By: #### A LLBG ####[facility]ORYCLIA [id number] [address] CALCIUM IONIZED, PH CORRECTED 1.08 mmol/L Normal 1.08-1.30 [facility] Comment on above: Order Comment: Speci men Type: ARTERIAL BLOOD SPECIMEN Performed By: #### A LLBG ####[facility]ORYCLIA [id number] [address] Calcium.ionized (BldV) [Mass/Vol] 1.15 mmol/L Normal 1.08-1.30 [facility] Comment on above: Order Comment: Speci men Type: ARTERIAL BLOOD SPECIMEN Performed By: #### A LLBG ####[facility]ORYCLIA [id number] [address] Carboxyhemoglobin (BldA) [Mass fraction] 1.4 % Normal 0.0-2.0 [facility] Comment on above: Order Comment: Speci men Type: ARTERIAL BLOOD SPECIMEN Result Comment: Carb oxyhemoglobin Reference Range for Smokers: 2.0-8.0% Performed By: #### A LLBG ####[facility]ORYCLIA [id number] [place], [place] [id number] [place] [address] CO2 (Bld) [Partial pressure] 59 mm Hg High 36-46 [facility] Comment on above: Order Comment: Speci men Type: ARTERIAL BLOOD SPECIMEN Performed By: #### A LLBG ####[facility]ORYCLIA [id number] [place], [place] [address] [place] [address] [place] CO2 [Moles/Vol] 24.5 mmol/L Normal 22-28 [facility] Comment on above: Order Comment: Speci men Type: ARTERIAL BLOOD SPECIMEN Performed By: #### A LLBG ####[facility]ORYCLIA [id number] [address] CO2 adjusted to patient's actual temperature (Bld) [Partial pressure] 58 mmHg High 36-46 [facility] Comment on above: Order Comment: Speci men Type: ARTERIAL BLOOD SPECIMEN Performed By: #### A LLBG ####[facility]ORYCLIA [id number] [address] [place] FIO2 40 % Normal [facility] Comment on above: Order Comment: Speci men Type: ARTERIAL BLOOD SPECIMEN Performed By: #### A LLBG ####[facility]ORYCLIA [id number] [address] Glucose [Mass/Vol] 128 mg/dL High 60-105 [facility] Comment on above: Order Comment: Speci men Type: ARTERIAL BLOOD SPECIMEN Performed By: #### A LLBG ####[facility]ORYCLIA [id number] [address] HCO3 (Bld) [Moles/Vol] 26 mmol/L Normal 22-26 [facility] Comment on above: Order Comment: Speci men Type: ARTERIAL BLOOD SPECIMEN Performed By: #### A LLBG ####[facility]ORYCLIA [id number] [address] [place] Hematocrit (Bld) [Volume fraction] 35.6 % Low 39.0-51.0 [facility] Comment on above: Order Comment: Speci men Type: ARTERIAL BLOOD SPECIMEN Performed By: #### A LLBG ####[facility]ORYCLIA [id number] [address] Hemoglobin (Bld) [Mass/Vol] 11.5 g/dL Low 13.0-17.0 [facility] Comment on above: Order Comment: Speci men Type: ARTERIAL BLOOD SPECIMEN Performed By: #### A LLBG ####[facility]ORYCLIA [id number] [address] [place] INHALED TIDAL VOLUME (ML) 500 Normal [facility] Comment on above: Order Comment: Speci men Type: ARTERIAL BLOOD SPECIMEN Performed By: #### A LLBG ####[facility]ORYCLIA [id number] [address] INVASIVE VENTILATOR MODE PRVC=Pressure Regulated Volume Control [facility] Comment on above: Order Comment: Speci men Type: ARTERIAL BLOOD SPECIMEN Performed By: #### A LLBG ####[facility]ORYCLIA [id number] [address] OF [facility] Methemoglobin (Bld) [Mass fraction] % Normal 0.0-1.5 [facility] Comment on above: Order Comment: Speci men Type: ARTERIAL BLOOD SPECIMEN Performed By: #### A LLBG ####[facility]ORYCLIA [id number] [address] O2 THERAPY Ventilator Normal [facility] Comment on above: Order Comment: Speci men Type: ARTERIAL BLOOD SPECIMEN Performed By: #### A LLBG ####[facility]ORYCLIA [id number] [address] Oxygen (Bld) [Partial pressure] 88 mm Hg Normal 85-95 [facility] Comment on above: Order Comment: Speci men Type: ARTERIAL BLOOD SPECIMEN Performed By: #### A LLBG ####[facility]ORYCLIA [id number] [address] Oxygen adjusted to patient's actual temperature (Bld) [Partial pressure] 86.5 mmHg Normal 85-95 [facility] Comment on above: Order Comment: Speci men Type: ARTERIAL BLOOD SPECIMEN Performed By: #### A LLBG ####[facility]ORYCLIA [id number] [address] OXYGEN SATURATION, ARTERIAL 95 % Normal 95-98 [facility] Comment on above: Order Comment: Speci men Type: ARTERIAL BLOOD SPECIMEN Performed By: #### A LLBG ####[facility]ORYCLIA [id number] [address] Oxyhemoglobin (BldA) [Mass fraction] 93 % Low 95-98 [facility] Comment on above: Order Comment: Speci men Type: ARTERIAL BLOOD SPECIMEN Performed By: #### A LLBG ####[facility]ORYCLIA [id number] [address] PEEP/CPAP 5 cmH2O Normal [facility] Comment on above: Order Comment: Speci men Type: ARTERIAL BLOOD SPECIMEN Performed By: #### A LLBG ####[facility]ORYCLIA [id number] [address] OF [facility] pH (Bld) 7.27 [pH] Low 7.35-7.45 [facility] Comment on above: Order Comment: Speci men Type: ARTERIAL BLOOD SPECIMEN Performed By: #### A LLBG ####[facility]ORYCLIA [id number] [address] pH adjusted to patient's actual temperature (Bld) 7.28 Low 7.35-7.45 [facility] Comment on above: Order Comment: Speci men Type: ARTERIAL BLOOD SPECIMEN Performed By: #### A LLBG ####[facility]ORYCLIA [id number] [address] Potassium [Moles/Vol] 3.3 mmol/L Low 3.5-5.0 [facility] Comment on above: Order Comment: Speci men Type: ARTERIAL BLOOD SPECIMEN Performed By: #### A LLBG ####[facility]ORYCLIA [id number] [address] SET VENTILATOR RESPIRATORY RATE (BPM) 14 BPM Normal [facility] Comment on above: Order Comment: Speci men Type: ARTERIAL BLOOD SPECIMEN Performed By: #### A LLBG ####[facility]ORYCLIA [id number] [address] Sodium [Moles/Vol] 141 mmol/L Normal 136-144 [facility] Comment on above: Order Comment: Speci men Type: ARTERIAL BLOOD SPECIMEN Performed By: #### A LLBG ####[facility]ORYCLIA [id number] [address] Bacteria CSF Culton 06-01-19 22 Bacteria identified Cx Nom (CSF) CULTURE, CSF: No growth 14 days GRAM STAIN: No organisms seen Rare Polymorphonuclear leukocytes Moderate Red Blood Cells Gram stain performed on cytospun specimen. Normal [facility] Comment on above: Performed By: #### 6 06-4 ####[facility]ORYCLIA [id number] [address] Bacteria Spec Resp Culton Bacteria identified Respiratory culture Nom (Unsp spec) CULTURE, RESPIRATORY: No growth 2 days GRAM STAIN: No organisms seen No Polymorphonuclear Leukocytes Normal [facility] Comment on above: Performed By: #### 3 2355-0 ####[facility]ORYCLIA [id number] [address] Basic metabolic 2000 panelon 06-01-2021 Anion gap [Moles/Vol] 8 mmol/L Low 9-18 [facility] Comment on above: Order Comment: Speci men Type: BLOOD SPECIMEN Performed By: #### 2 4321-2, 01293-0, 2777-1 ####[facility]ORYCLIA [id number] [address] [place] Calcium [Mass/Vol] 7.8 mg/dL Low 8.5-10.2 [facility] Comment on above: Order Comment: Speci men Type: BLOOD SPECIMEN Performed By: #### 2 4321-2, , 2776-05 ####[facility]ORYCLIA [id number] [address] [place] [facility] Chloride [Moles/Vol] 109 mmol/L High 97-105 [facility] Comment on above: Order Comment: Speci men Type: BLOOD SPECIMEN Performed By: #### 2 4321-2, , 2776-05 ####[facility] [id number] [address] [place] CO2 [Moles/Vol] 26 mmol/L Normal 22-30 [facility] Comment on above: Order Comment: Speci men Type: BLOOD SPECIMEN Performed By: #### 2 4321-2, , 2776-05 ####[facility]ORYCL[facility] [id number] [address] [place] [facility] Creatinine [Mass/Vol] 0.82 mg/dL Normal 0.73-1.22 [facility] Comment on above: Order Comment: Speci men Type: BLOOD SPECIMEN Performed By: #### 2 4321-2, , 2776-05 ####[facility]ORYCL[facility] [id number] [address] [place] GFR/1.73 sq M.predicted [...] Performed By: #### 2 4320-2, , 2776-05 ####[facility]ORYCLIA [id number] [place] [address] [place] Glucose [Mass/Vol] 105 [...] Performed By: #### 2 4320-2, , 2776-05 ####[facility]ORYCL[facility] [id number] [place] [address] [place] Potassium [Moles/Vol] 3.8 mmol/L Normal 3.7-5.1 [facility] Comment on above: Order Comment: Speci men Type: BLOOD SPECIMEN Performed By: #### 2 4320-2, , 2776-05 ####[facility]ORYCLIA [id number] [place] [address] [place] Sodium [Moles/Vol] 143 mmol/L Normal 136-144 [facility] Comment on above: Order Comment: Speci men Type: BLOOD SPECIMEN Performed By: #### 2 4320-2, , 2776-05 ####[facility]ORYCLIA [id number] [place] [address] [place] Urea nitrogen [Mass/Vol] 15 mg/dL Normal 9-24 [facility] Comment on above: Order Comment: Speci men Type: BLOOD SPECIMEN Performed By: #### 2 4321-2, 79903-8, 2777-1 ####[facility]ORYCLIA [id number] [address] CBC panel Auto (Bld)on 06-01 Erythrocyte distribution width (RBC) [Ratio] 15.4 % High 11.5-15.0 [facility] Comment on above: Order Comment: Speci men Type: BLOOD SPECIMEN Performed By: #### 5 8410-2 ####[facility]ORYCL[facility] [id number] [address] Hematocrit (Bld) [Volume fraction] 38.4 % Low 39.0-51.0 [facility] Comment on above: Order Comment: Speci men Type: BLOOD SPECIMEN Performed By: #### 5 8410-2 ####[facility]ORYCL[facility] [id number] [address] Hemoglobin (Bld) [Mass/Vol] 11.1 g/dL Low 13.0-17.0 [facility] Comment on above: Order Comment: Speci men Type: BLOOD SPECIMEN Performed By: #### 5 8410-2 ####[facility]ORYCLIA [id number] [address] MCH (RBC) [Entitic mass] 26.9 pg Normal 26.0-34.0 [facility] Comment on above: Order Comment: Speci men Type: BLOOD SPECIMEN Performed By: #### 5 8410-2 ####[facility]ORYCLIA [id number] [address] MCHC (RBC) [Mass/Vol] 28.9 g/dL Low 30.5-36.0 [facility] Comment on above: Order Comment: Speci men Type: BLOOD SPECIMEN Performed By: #### 5 8410-2 ####[facility]ORYCLIA [id number] [address] MCV (RBC) [Entitic vol] 93.2 fL Normal 80.0-100.0 [facility] Comment on above: Order Comment: Speci men Type: BLOOD SPECIMEN Performed By: #### 5 8410-2 ####[facility]ORYCLIA [id number] [address] Nucleated RBC (Bld) [#/Vol] 10*3/uL Normal <0.01 [facility] Comment on above: Order Comment: Speci men Type: BLOOD SPECIMEN Performed By: #### 5 8410-2 ####[facility]CL[facility] [id number] [address] Platelet mean volume (Bld) [Entitic vol] 10.2 fL Normal 9.0-12.7 [facility] Comment on above: Order Comment: Speci men Type: BLOOD SPECIMEN Performed By: #### 5 8410-2 ####[facility]ORYCLIA [id number] [address] Platelets (Bld) [#/Vol] 231 10*3/uL Normal 150-400 [facility] Comment on above: Order Comment: Speci men Type: BLOOD SPECIMEN Performed By: #### 5 8410-2 ####[facility]ORYCL[facility] [id number] [address] RBC (Bld) [#/Vol] 4.12 10*6/uL Low 4.20-6.00 [facility] Comment on above: Order Comment: Speci men Type: BLOOD SPECIMEN Performed By: #### 5 8410-2 ####[facility]ORYCLIA [id number] [address] OF [facility] WBC (Bld) [#/Vol] 10.99 10*3/uL Normal 3.70-11.00 [facility] Comment on above: Order Comment: Speci men Type: BLOOD SPECIMEN Performed By: #### 5 8410-2 ####[facility]ORYCLIA [id number] [address] CONSULT PROGon 06-01-2021 CONSULT PROG Normal [facility] CSF MANUAL DIFFon 06-01-2021 DIF TTL, CSF 100 cells counted Normal [facility] Comment on above: Order Comment: Speci men Type: CEREBROSPINAL FLUID Performed By: #### 3 4563-7, [id number] ####[facility]ORYCLIA [id number] [place], [place] [id number] [place] [address] LYMPH%, CSF 11 % Low 50-90 [facility] Comment on above: Order Comment: Speci men Type: CEREBROSPINAL FLUID Performed By: #### 3 4563-7, [id number] ####[facility]ORYCLIA [id number] [address] OF [facility] MONO%, CSF 10 % Normal 10-50 [facility] Comment on above: Order Comment: Speci men Type: CEREBROSPINAL FLUID Performed By: #### 3 4563-7, [id number] ####[facility]ORYCLIA [id number] [address] [place] NEUT%, CSF 79 % High 0-3 [facility] Comment on above: Order Comment: Speci men Type: CEREBROSPINAL FLUID Performed By: #### 3 4563-7, [id number] ####[facility]ORYCLIA [id number] [address] [facility] CT BRAIN WO IVCONon 06-01-19 CT BRAIN WO IVCON Normal [facility] Cell count panel (CSF)on Clarity (CSF) Clear Normal Clear [facility] Comment on above: Order Comment: Speci men Type: CEREBROSPINAL FLUID Performed By: #### 3 4563-7, [id number] ####[facility]ORYCLIA [id number] [address] Clarity (Unsp spec) Not Indicated Normal Clear [facility] Comment on above: Order Comment: Speci men Type: CEREBROSPINAL FLUID Performed By: #### 3 4563-7, [id number] ####[facility]ORYCLIA [id number] [address] Color (CSF) Colorless Normal Colorless [facility] Comment on above: Order Comment: Speci men Type: CEREBROSPINAL FLUID Performed By: #### 3 4563-7, [id number] ####[facility]ORYCLIA [id number] [address] Color (Spun CSF) Not Indicated Normal Colorless [facility] Comment on above: Order Comment: Speci men Type: CEREBROSPINAL FLUID Performed By: #### 3 4563-7, [id number] ####[facility]ORYCLIA [id number] [address] CSF TUBE NUMBER Sterile Container Normal [facility] Comment on above: Order Comment: Speci men Type: CEREBROSPINAL FLUID Performed By: #### 3 4563-7, [id number] ####[facility]ORYCLIA [id number] [address] RBC Manual cnt (CSF) [#/Vol] 171 cells/uL High 0-5 [facility] Comment on above: Order Comment: Speci men Type: CEREBROSPINAL FLUID Performed By: #### 3 4563-7, [id number] ####[facility]ORYCLIA [id number] [address] WBC Manual cnt (CSF) [#/Vol] 5 cells/uL Normal 0-5 [facility] Comment on above: Order Comment: Speci men Type: CEREBROSPINAL FLUID Performed By: #### 3 4563-7, [id number] ####[facility]ORYCLIA [id number] [address] [place] FUNGAL CULTUREon 06-01-2021 FUNGAL CULTURE CULTURE, FUNGAL: No Fungus isolated after 28 days Normal [facility] Comment on above: Performed By: #### F CUL ####[facility]ORYCLIA [id number] [address] [place] Glucose CSF-mCncon Glucose (CSF) [...] Glucose HK (GLUC3) [package insert V 12.0 Fijian]. [employer], [place], [place]. September 2015. 2. Michelle Moore, Michelle Manjarrez (2015). Chapter 7: Glucose and Lactate. F. Irina rose al.(eds.), Cerebrospinal Fluid in Clinical Neurology. [place]: [employer]. Performed By: #### 2 342-4, 2880-3 ####[facility]ORYCLIA [id number] [address] [place] HERPES SIMPLEX CSFon 022 HERPES SIMPLEX CSF HSV PCR SPEC SOURCE: Cerebrospinal Fluid HSV-1: Negative for Herpes Simplex Virus Type 1 by PCR HSV-2: Negative for Herpes Simplex Virus Type 2 by PCR Normal [facility] Comment on above: Performed By: #### [facility] ####[facility] LABCLIA [id number] [id number] [address] [place] Lactate (Bld) [Moles/Vol]on 06-01-2021 Lactate [Moles/Vol] 0.5 mmol/L Normal 0.5-2.2 [facility] Comment on above: Order Comment: Speci men Type: BLOOD SPECIMEN Performed By: #### 3 2693-4 ####[facility]ORYCLIA [id number] [address] [place] MENINGITIS ENCEPHALITIS BIOF IREon 06-01-2021 MENINGITIS ENCEPHALITIS BIOFIRE Negative Normal [facility] Comment on above: Order Comment: Speci men Type: CEREBROSPINAL FLUID Performed By: #### M GEBF ####[facility]IPCLIA [id number] [address] Magnesium SerPl-mCncon 06-01 Magnesium [Mass/Vol] 2.2 mg/dL Normal 1.7-2.3 [facility] Comment on above: Order Comment: Speci men Type: BLOOD SPECIMEN Performed By: #### 2 4321-2, 09251-9, 2776- ####[facility]ORYCLIA [id number] [address] Microorganism Spec Culton Microorganism identified Cx Nom (Unsp spec) CULTURE, AFB: No Acid Fast Bacilli isolated after 42 days AFB STAIN: No acid fast bacilli seen by flurochrome stain Normal [facility] Comment on above: Performed By: #### 1 1475-1 ####[facility]ORYCLIA [id number] [address] PROCALCITONIN (LAB)on 2021 Procalcitonin [Mass/Vol] 0.08 ng/mL Normal <0.09 [facility] Comment on above: Order Comment: Speci men Type: BLOOD SPECIMEN Result Comment: For a guided interpretation of test results, please visit the [facility] in Procalcitonin Calculator, [email or web address]. Performed By: #### P ROCAL ####[facility]ORYCLIA [id number] [address] Phosphate SerPl-ncon 06-01 Phosphate [Mass/Vol] 3.5 mg/dL Normal 2.7-4.8 [facility] Comment on above: Order Comment: Speci men Type: BLOOD SPECIMEN Performed By: #### 2 4321-2, 18269-7, 2776-05 ####[facility]ORYCLIA [id number] [address] [place] Prot CSF-mCncon 06-01-2021 Protein (CSF) [Mass/Vol] 52 mg/dL High 15-45 [facility] Comment on above: Order Comment: Speci men Type: CEREBROSPINAL FLUID Performed By: #### 2 342-4, 2880-3 ####[facility]ORYCLIA [id number] [address] [place] Vancomycin random [Mass/Vol] on 06-01-2021 Vancomycin [Mass/Vol] 14.6 ug/mL Normal 10.0-20.0 [facility] Comment on above: Order Comment: Speci men Type: BLOOD SPECIMEN Result Comment: Refe rence ranges and high/low indicator flags are provided as general guidelines only. The treating physician must determine appropriate target levels/dosing based on the specific clinical situation. Performed By: #### 4 091-5 ####[facility]ORYCLIA [id number] [address] [place] [facility] XR CHEST 1V FRONTALon 2021 XR CHEST 1V FRONTAL Normal [facility] XR CHEST 1V FRONTAL Normal [facility] XR NECK SOFT TISSUE 2V AP/LA Ton 06-01-2021 XR NECK SOFT TISSUE 2V AP/LAT Normal [facility] XR SKULL 2V AP/LATon 022 XR SKULL 2V AP/LAT Normal [facility] ALLIED HEALTHon 05-31-2021 ALLIED HEALTH HNO ID: [id number] Author: Christina Lynne RT(R) Service: Radiology Author Type: Technologist Type: Allied Health Filed: 05/31/2021 5:48 PM Note Text: MRI tomorrow per RN. Normal [facility] HEALTH Normal [facility] ALLIED HEALTH Normal [facility] HEALTH Normal [facility] ANES POSTPROC [...] on above: Performed By: #### 6 00-7 ####[facility]ORYCLIA [id number] [address] OF [facility] Bacteria CSF Culton 05-31-19 22 Bacteria identified Cx Nom (CSF) CULTURE, CSF: No growth 14 days GRAM STAIN: No organisms seen Rare Polymorphonuclear leukocytes Rare Red Blood Cells Gram stain performed on cytospun specimen. Normal [facility] Comment on above: Performed By: #### 6 06-4 ####[facility]ORYCLIA [id number] [address] OF [facility] Basic metabolic 2000 panelon 05-31-2021 Anion gap [Moles/Vol] 9 mmol/L Normal 9-18 [facility] Comment on above: Order Comment: Speci men Type: BLOOD SPECIMEN Performed By: #### 2 777-1, 62983-8, ####[facility]ORYCLIA [id number] [address] [place] Calcium [Mass/Vol] 8.2 mg/dL Low 8.5-10.2 [facility] Comment on above: Order Comment: Speci men Type: BLOOD SPECIMEN Performed By: #### 2 777-1, 68209-7, ####[facility]ORYCLIA [id number] [address] [place] [facility] Chloride [Moles/Vol] 110 mmol/L High 97-105 [facility] Comment on above: Order Comment: Speci men Type: BLOOD SPECIMEN Performed By: #### 2 777-1, , ####[facility]ORYCLIA [id number] [address] [place] CO2 [Moles/Vol] 27 mmol/L Normal 22-30 [facility] Comment on above: Order Comment: Speci men Type: BLOOD SPECIMEN Performed By: #### 2 777-1, 02369-1, ####[facility]ORYCLIA [id number] [address] [place] Creatinine [Mass/Vol] 0.85 mg/dL Normal 0.73-1.22 [facility] Comment on above: Order Comment: Speci men Type: BLOOD SPECIMEN Performed By: #### 2 777-1, 46824-4, ####[facility]ATORYCLIA [id number] [place] [address] [place] GFR/1.73 sq M.predicted [...] actual GFR. Performed By: #### 2 777-1, 10706-6, 38059-2 ####[facility]ORYCLIA [id number] [place] [address] [place] Glucose [Mass/Vol] 111 [...] 2016.39(Suppl 1). Performed By: #### 2 777-1, 61646-9, 31955-5 ####[facility]ORYCLIA [id number] [place] [address] [place] Potassium [Moles/Vol] 3.7 mmol/L Normal 3.7-5.1 [facility] Comment on above: Order Comment: Speci men Type: BLOOD SPECIMEN Performed By: #### 2 777-1, 70600-9, ####[facility]ORYCLIA [id number] [address] Sodium [Moles/Vol] 146 mmol/L High 136-144 [facility] Comment on above: Order Comment: Speci men Type: BLOOD SPECIMEN Performed By: #### 2 777-1, 20650-7, ####[facility]ORYCLIA [id number] [address] [place] [facility] Urea nitrogen [Mass/Vol] 16 mg/dL Normal 9-24 [facility] Comment on above: Order Comment: Speci men Type: BLOOD SPECIMEN Performed By: #### 2 777-1, 15938-3, ####[facility]ORYCLIA [id number] [address] [place] CASE MGT INIT ASSESon 2021 CASE MGT INIT ASSES Normal [facility] CBC W Auto Differential pane l (Bld)on 05-31-2021 Basophils (Bld) [#/Vol] 0.04 10*3/uL Normal <0.11 [facility] Comment on above: Order Comment: Speci men Type: BLOOD SPECIMEN Performed By: #### 5 7021-8 ####[facility]ORYCLIA [id number] [address] Basophils/100 WBC (Bld) 0.5 % Normal [facility] Comment on above: Order Comment: Speci men Type: BLOOD SPECIMEN Performed By: #### 5 7021-8 ####[facility]CLIA [id number] [address] Differential cell count method Nom (Bld) Auto Normal [facility] Comment on above: Order Comment: Speci men Type: BLOOD SPECIMEN Performed By: #### 5 7021-8 ####[facility]ORYCLIA [id number] [address] Eosinophils (Bld) [#/Vol] 0.27 10*3/uL Normal <0.46 [facility] Comment on above: Order Comment: Speci men Type: BLOOD SPECIMEN Performed By: #### 5 7021-8 ####[facility]ORYCLIA [id number] [address] Eosinophils/100 WBC (Bld) 3.3 % Normal [facility] Comment on above: Order Comment: Speci men Type: BLOOD SPECIMEN Performed By: #### 5 7021-8 ####[facility]ORYCLIA [id number] [address] Erythrocyte distribution width (RBC) [Ratio] 15.4 % High 11.5-15.0 [facility] Comment on above: Order Comment: Speci men Type: BLOOD SPECIMEN Performed By: #### 5 7021-8 ####[facility]ORYCLIA [id number] [address] Hematocrit (Bld) [Volume fraction] 37.9 % Low 39.0-51.0 [facility] Comment on above: Order Comment: Speci men Type: BLOOD SPECIMEN Performed By: #### 5 7021-8 ####[facility]CLIA [id number] [address] Hemoglobin (Bld) [Mass/Vol] 11.5 g/dL Low 13.0-17.0 [facility] Comment on above: Order Comment: Speci men Type: BLOOD SPECIMEN Performed By: #### 5 7021-8 ####[facility]ORYCLIA [id number] [address] IMMATURE GRAN % 0.4 % Normal [facility] Comment on above: Order Comment: Speci men Type: BLOOD SPECIMEN Performed By: #### 5 7021-8 ####[facility]ORYCLIA [id number] [address] IMMATURE GRAN ABS 0.03 k/uL Normal <0.10 [facility] Comment on above: Order Comment: Speci men Type: BLOOD SPECIMEN Performed By: #### 5 7021-8 ####[facility]ORYCLIA [id number] [address] Lymphocytes (Bld) [#/Vol] 1.90 10*3/uL Normal 1.00-4.00 [facility] Comment on above: Order Comment: Speci men Type: BLOOD SPECIMEN Performed By: #### 5 7021-8 ####[facility]ORYCLIA [id number] [address] Lymphocytes/100 WBC (Bld) 23.0 % Normal [facility] Comment on above: Order Comment: Speci men Type: BLOOD SPECIMEN Performed By: #### 5 7021-8 ####[facility]ORYCLIA [id number] [address] MCH (RBC) [Entitic mass] 28.0 pg Normal 26.0-34.0 [facility] Comment on above: Order Comment: Speci men Type: BLOOD SPECIMEN Performed By: #### 5 7021-8 ####[facility]CLIA [id number] [address] MCHC (RBC) [Mass/Vol] 30.3 g/dL Low 30.5-36.0 [facility] Comment on above: Order Comment: Speci men Type: BLOOD SPECIMEN Performed By: #### 5 7021-8 ####[facility]ORYCLIA [id number] [address] MCV (RBC) [Entitic vol] 92.4 fL Normal 80.0-100.0 [facility] Comment on above: Order Comment: Speci men Type: BLOOD SPECIMEN Performed By: #### 5 7021-8 ####[facility]ORYCLIA [id number] [address] Monocytes (Bld) [#/Vol] 0.60 10*3/uL Normal <0.87 [facility] Comment on above: Order Comment: Speci men Type: BLOOD SPECIMEN Performed By: #### 5 7021-8 ####[facility]ORYCLIA [id number] [address] Monocytes/100 WBC (Bld) 7.3 % Normal [facility] Comment on above: Order Comment: Speci men Type: BLOOD SPECIMEN Performed By: #### 5 7021-8 ####[facility]ORYCLIA [id number] [address] Neutrophils (Bld) [#/Vol] 5.41 10*3/uL Normal 1.45-7.50 [facility] Comment on above: Order Comment: Speci men Type: BLOOD SPECIMEN Performed By: #### 5 7021-8 ####[facility]ORATORYCLIA [id number] [address] Neutrophils/100 WBC (Bld) 65.5 % Normal [facility] Comment on above: Order Comment: Speci men Type: BLOOD SPECIMEN Performed By: #### 5 7021-8 ####[facility]ORYCLIA [id number] [address] Nucleated RBC (Bld) [#/Vol] 10*3/uL Normal <0.01 [facility] Comment on above: Order Comment: Speci men Type: BLOOD SPECIMEN Performed By: #### 5 7021-8 ####[facility]ORYCLIA [id number] [address] Nucleated RBC/100 WBC (Bld) [Ratio] 0.0 /100 WBC Normal 0.0 [facility] Comment on above: Order Comment: Speci men Type: BLOOD SPECIMEN Performed By: #### 5 7021-8 ####[facility]ORYCLIA [id number] [address] Platelet mean volume (Bld) [Entitic vol] 9.8 fL Normal 9.0-12.7 [facility] Comment on above: Order Comment: Speci men Type: BLOOD SPECIMEN Performed By: #### 5 7021-8 ####[facility]ORYCLIA [id number] [address] Platelets (Bld) [#/Vol] 251 10*3/uL Normal 150-400 [facility] Comment on above: Order Comment: Speci men Type: BLOOD SPECIMEN Performed By: #### 5 7021-8 ####[facility]CLIA [id number] [address] RBC (Bld) [#/Vol] 4.10 10*6/uL Low 4.20-6.00 [facility] Comment on above: Order Comment: Speci men Type: BLOOD SPECIMEN Performed By: #### 5 7021-8 ####[facility]ORYCLIA [id number] [address] WBC (Bld) [#/Vol] 8.25 10*3/uL Normal 3.70-11.00 [facility] Comment on above: Order Comment: Speci men Type: BLOOD SPECIMEN Performed By: #### 5 7021-8 ####[facility]ORYCLIA [id number] [address] CONSULTon 05-31-2021 CONSULT Normal [facility] CONSULT Normal [facility] CONSULT Normal [facility] CT BRAIN WO IVCONon 05-31-[address] BRAIN WO IVCON Normal [facility] CT BRAIN WO IVCON Normal [facility] CT CHEST WO IVCONon 05-31-[address] CHEST WO IVCON Normal [facility] Cortis SerPl-mCncon 05-31-19 22 Cortisol [Mass/Vol] 31.0 ug/dL High AM: 5.3-22.5, PM: 3.4-16.8 [facility] Comment on above: Order Comment: Speci men Type: BLOOD SPECIMEN Result Comment: Prov ided reference range is from 6-10 AM sample collection time.Cortisol Reference Range: 6-10 AM = 4.8-19.5 ug/dL, 4-8 PM = 2.5-11.9 ug/dL Performed By: #### 2 143-6, 3016-3 ####[facility]ORYCLIA [id number] [address] Cryptoc Ag Spec Ql LAon 05-08 Cryptococcus sp Ag LA Ql (Unsp spec) Negative Normal [facility] Comment on above: Performed By: #### 4 3228-6 ####[facility]CLIA [id number] [address] [place] HISTORY PHYSICALon 2 HISTORY PHYSICAL Normal [facility] Magnesium SerPl-ncon 05-31 Magnesium [Mass/Vol] 2.2 mg/dL Normal 1.7-2.3 [facility] Comment on above: Order Comment: Speci men Type: BLOOD SPECIMEN Performed By: #### 2 777-1, 10038-6, 53254-6 ####[facility]ORYCLIA [id number] [address] [place] NURSING PROGon 05-31-2021 NURSING PROG Normal [facility] NUTRITIONon 05-31-2021 NUTRITION Normal [facility] OPERATIVE NOon 05-31-2021 OPERATIVE NO Normal [facility] Phosphate SerPl-mCncon 05-31 Phosphate [Mass/Vol] 3.3 mg/dL Normal 2.7-4.8 [facility] Comment on above: Order Comment: Speci men Type: BLOOD SPECIMEN Performed By: #### 2 777-1, 41227-8, ####[facility]ORYCLIA [id number] [address] STAPH AUREUS PCRon 2 S. aureus and MRSA panel MEGAN+probe (Nose) Normal Negative [facility] Comment on above: Order Comment: Speci men Type: SWAB OF INTERNAL NOSE Result Comment: Nega tive for Staphylococcus aureus by PCR.Negative for MRSA by PCR Performed By: #### S APCR ####[facility]ORYCLIA [id number] [address] [place] TSH SerPl-aCncon 05-31-2021 TSH Qn 0.829 m[IU]/L Normal 0.270-4.200 [facility] Comment on above: Order Comment: Speci men Type: BLOOD SPECIMEN Performed By: #### 2 143-6, 3016-3 ####[facility] [id number] [address] XR CHEST 1V FRONTALon 2021 XR CHEST 1V FRONTAL Normal [facility] XR CHEST 1V FRONTAL Normal [facility] Blood Cultureon 05-30-2021 Bacteria identified Cx Nom (Bld) Culture Result - No growth 5 days Normal [facility] Comment on above: Performed By: #### C AD #### [facility] [address] [place] [address] Bacteria identified Cx Nom (Bld) Sp. Request/Comment: - 8.2MLS Culture Result - No growth 5 days Normal [facility] Comment on above: Performed By: #### C AD #### [facility] [address] [place] [address] C-Reactive Proteinon 022 C-Reactive Protein 1.7 mg/dL High <0.9 [facility] Comment on above: Performed By: #### C RP ####[facility] [address] [place] [phone] CNDSon 05-30-2021 [facility] HNO ID: [id number] Author: Columba Carroll PA-C Service: Hospital Medicine Author Type: Physician Recorder [employer] Type: Discharge Summary Filed: 05/30/2021 12:49 PM Note Text: ----- Attestation signed by Ayaka Menjivar MD at 06/01/2021 12:53 PM Attending Note I have personally reviewed the PA/FLASH DEVELOPER note. Agree with above assessment and plan. [...] Team: Attending Provider: Ayaka Menjivar MD Physician Recorder [employer] Prospecting: Columba Carroll PA-C Consulting: Lilo Mendoza MD [...] consulted. Neurology suggested empiric abx coverage for MANAGER TALENT infection Rocephin and Vancomycin was started. Tele-neuro also suggested an MRI brain be obtained prior to LP to check NURSING COORDINATOR shunt and decrease risk of herniation in neurosurgery capable facility. Transfer to [facility] requested. Sepsis lactate was 1.3. ABG showed pO2 67.8, placed patient on 2L NC.Follow B1, B12, and RPR pending. Transitions of Care Critical Issues: - patient transferred for 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 LABS AND PROCEDURES PENDING [...] intravenously q 1 (more content not included)... [facility] CONSULTon 05-30-2021 CONSULT HNO ID: [id number] Author: Juan Carlos Mckenzie MD Service: Infectious [...] vertebrae with counting from the craniocervical junction. [employer] Driver: [employer] Transcribe Date/Time: May 29 2021 8:59P Dictated by : CARLOS YOUNGER MD This examination was interpreted and the report reviewed and electronically signed by: CARLOS YOUNGER MD on May 29 2021 9:14PM EST ? CT CERVICAL SPINE WO (more content not included)... Normal [facility] CONSULT HNO ID: [id number] Author: Lilo Mendoza MD Service: Neurology General Author Type: Physician Type: Consults Filed: 05/30/2021 10:56 AM Note Text: [facility] TeleNeurology Consult Note Patient seen using Tel[facility]rology Services. Recommendations are placed in the chart. Please review. For questions after hours, when teleneurologist is not available, for [place]: Please Page [phone] for the [facility] Neurology Group from 12pm to 8Am Admitting Provider/Consulted by:Hermes Roca MD Time of Note:05/30/2021 Patient Name:Andrew Sifuentes Admit Date:05/29/2021 Hospital Day:0 CC: altered mental status History of Present Illness: Andrew R Gurpreet is a 71 year old unknown handed male with limited information about past medical history including venous insufficiency s/p EVLT, hydrocepalus s/p NURSING COORDINATOR shunt in 1987 with multiple revisions and [...] Reflexes Right Lef (more content not included)... [facility] CONSULT PROGon 05-30-2021 CONSULT PROG 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 Age: [age] year old Allergies: ALLERGIES Allergen [...] Levels: No results found for: IMANI Gutierres [facility] Normal [facility] Creatinineon 05-30-2021 Creatinine [Mass/Vol] 0.86 mg/dL Normal 0.73-1.[address] [facility] Comment on above: Performed By: #### C RET1 ####[facility] Ahretnlsxd9174 [address]5[address] eGFR- Amer. >60 Normal [facility] Comment on above: Performed By: #### C RET1 ####[facility] Jzahqiqueu8884 [address] eGFR-All Other Races >60 Normal [facility] Comment on above: Result Comment: [...] at [email or web address]. Performed By: #### C RET1 ####[facility] [address] [place] [phone] Crypto Antigen Deton 022 Crypto Antigen Det Sp. Request/Comment: - SST Test Result - Duplicate request Account Credited [facility] Comment on above: Performed By: #### C AD #### [facility] [address] [place] [address] [facility] [address] [place] [address] Crypto Antigen Det Sp. Request/Comment: - SST Test Result - Cryptococcal antigen detection result: Negative By latex agglutination [facility] Comment on above: Performed By: #### C AD #### [facility] [address] [place] [phone] [facility] [address] [place] [address] ED NOTEon 05-30-2021 ED NOTE HNO ID: [id number] Author: Aletha Lopez RN Service: ? Author Type: Registered Nurse Type: ED Notes Filed: 05/29/2021 11:16 PM Note Text: Patient changed for incontinent urine, labs redrawn and sent. Patient aware of plan to be admitted and agrees with plan Normal [facility] HISTORY PHYSICALon HISTORY PHYSICAL Normal [facility] HISTORY PHYSICAL HNO ID: [id number] Author: Hermes Roca MD Service: Hospital Medicine Author Type: Physician Type: HANDP Filed: 05/30/2021 1:03 AM Note Text: DEPARTMENT OF HOSPITAL MEDICINE HISTORY AND PHYSICAL EXAM SERVICE DATE: 05/29/2021 SERVICE TIME: 11:18 PM Primary Care Physician: Mateus Burris MD NIGHT AND WEEKEND COVERAGE: Please page [phone] until 7:30am this morning. After 7:30am please check the treatment team banner and page the appropriate service. Subjective CHIEF COMPLAINT: Fall HPI: This is a 71 year old male with PMH of asthma, venous insufficiency s/p EVLT, obstructive hydrocepalus s/p NURSING COORDINATOR shunt in 1987 with multiple revisions and [...] recent imaging (more content not included)... Normal [facility] Magnesium SerPl-mCncon 05-30 Magnesium [Mass/Vol] 2.5 mg/dL High 1.7-2.3 [facility] Comment on above: Order Comment: Speci men Type: BLOOD SPECIMEN Performed By: #### 1 9123-9, 2777-1 ####[facility] [id number] [place] [address] [place] NURSING PROGon 05-30-2021 NURSING PROG HNO ID: [id number] Author: Precious Cervantes RN Service: ? Author Type: Registered Nurse Type: Nursing Progress Note Filed: 05/30/2021 11:26 AM Note Text: Nursing Progress Note Patient Name: Andrew Sifuentes Patient Location: [place] [address]/[id number]- Daily Note: 0700- Report received from night shift manager RN, patient resting in bed at this time, call light within reach, bed low and locked. Asked the patient to state his name because night shift manager RN was unable to complete his admission [...] This note was completed by: Precious Cervantes [facility] NURSING PROG HNO ID: [id number] Author: Lyubov Day RN Service: ? Author Type: Registered Nurse Type: Nursing Progress Note Filed: 05/30/2021 1:27 AM Note Text: Nursing Progress Note Patient Name: Andrew STACKN: [id number] Patient Location: [facility]-0217/[id number] 0100: Patient is unresponsive to questions. Patient [...] This note was completed by: Lyubov Day [facility] Phosphate SerPl-mCncon 05-30 Phosphate [Mass/Vol] 3.5 mg/dL Normal 2.7-4.8 [facility] Comment on above: Order Comment: Speci men Type: BLOOD SPECIMEN Performed By: #### 1 9123-9, 2777-1 ####[facility] [id number] [place] [address] [place] Sepsis Lactateon 05-30-2021 Sepsis Lactate 1.5 mmol/L Normal 0.5-2.0 [facility] Comment on above: Performed By: #### S LACT ####[facility] [address] [place] [phone] Syphilis Ttl w/Reflxon 05-30 Syphilis Interp Cannot exclude recen t Treponemal infection if specimen collected within 7 to 10 days after appearance of suspect lesions or 2 to 3 weeks after an exposure. Clinical correlation is required. [facility] Comment on above: Performed By: #### S SAMUEL RUCKER ####[facility] [place], [place] [phone] Syphilis Screen Rslt Non-Reactive Normal Non Reactive [facility] Comment on above: Performed By: #### S SAMUEL RUCKER ####[facility] [place], [place] [phone] THERAPY NTon 05-30-2021 THERAPY NT HNO ID: [id number] Author: Bette Jimenez OTR/L Service: Occupational Therapy Author Type: Occupational Therapist Type: Therapy (PT/OT/Speech/Resp) Filed: 05/30/2021 10:29 AM Note Text: OCCUPATIONAL THERAPY MISSED VISIT SERVICE DATE: 05/30/2021 SERVICE TIME: 1017 to 1019 ROOM: [place] [address] Attempted Evaluation. Patient not seen due to Not following commands. Per nursing patient was seen by neuro and they are talking about having him transferred to [facility] secondary to shunt concerns. Will re attempt in the event patient continues to be admitted at [facility] and is able to participate. SIGNATURE: RADHA Andres/L PATIENT NAME: Andrew Sifuentes DATE: May 30, 2021 TIME: 10:21 AM Normal [facility] THERAPY NT HNO ID: [id number] Author: Bette Velasquez PT Service: Physical Therapy Author Type: Physical Therapist Type: Therapy (PT/OT/Speech/Resp) Filed: 05/30/2021 8:42 AM Note Text: PHYSICAL THERAPY MISSED VISIT SERVICE DATE: 05/30/2021 SERVICE TIME: 0840 to 0840 ROOM: [place] [address] Attempted Evaluation. Patient not seen due to (pt difficult to awake per RN, very lethargic). Will re-attempt when schedule permits. SIGNATURE: Bette Velasquez PT PATIENT NAME: Andrew Sifuentes DATE: May 30, 2021 TIME: 8:41 AM Normal [facility] Toxicology Screen,Uron 05-30 Amphetamines, Urine Negative Normal Negative [facility] Comment on above: Result Comment: Cuto ff threshold at 1000 ng/mL. Performed By: #### C AD #### [facility] [address] [place] [address] [facility] [address] [place], [place] [address] Barbiturates, Urine Negative Normal Negative [facility] Comment on above: Result Comment: Cuto ff threshold at 200 ng/mL. Performed By: #### C AD #### [facility] [place] [phone] [place] [address] Benzodiazepines, Ur Negative Normal Negative [facility] Comment on above: Result Comment: Cuto ff threshold at 200 ng/mL. Performed By: #### C AD #### [facility] [place] [phone] [place] [address] Cannabinoids, Urine Negative Normal Negative [facility] Comment on above: Result Comment: Cuto ff threshold at 50 ng/mL. Performed By: #### C AD #### [facility] [address] [place] [phone] Cocaine, Urine Negative Normal Negative [facility] Comment on above: Result Comment: Cuto ff threshold at 300 ng/mL. Performed By: #### C AD #### [facility] [address] [place], [place] [address] [place] [address] Opiates, Urine Negative Normal Negative [facility] Comment on above: Result Comment: Cuto ff threshold at 300 ng/mL. Performed By: #### C AD #### [facility] [address] [place], [place] [phone] [place] [address] Oxycodone, Urine Negative Normal Negative [facility] Comment on above: Result Comment: Cuto [...] on the same specimen through Client Services ([phone]) if contacted within 48 hours of initial testing. [1]Substance Abuse and Mental Health Services Administration (2012). Clinical Drug Testing in Primary Care Technical Assistance Publication Series 32. Department of Health and Human Services, [place], p.10. Performed By: #### C AD #### [facility] [address] [place] [phone] Phencyclidine, Urine Negative Normal Negative [facility] Comment on above: Result Comment: Cuto ff threshold at 25 ng/mL. Performed By: #### C AD #### [facility] [address] [place] [phone] Troponin Ton 05-30-2021 Troponin T <0.010 Normal 0.000-0.029 [facility] Comment on above: Performed By: #### T NT ####[facility] [address] [place] [phone] Urinalysison 05-30-2021 Bilirubin, Urine Negative Normal Negative [facility] Comment on above: Performed By: #### C AD #### [facility] [address] [place] [phone] Clarity (U) Slightly Cloudy Critically abnormal Clear [facility] Comment on above: Performed By: #### C AD #### [facility] [address] [place] [phone] Color (U) Yellow Normal Yellow [facility] Comment on above: Performed By: #### C AD #### [facility] [address] [place], [place] [address] [place], [place] [address] Glucose Ql (U) Negative Normal Negative [facility] Comment on above: Performed By: #### C AD #### [facility] [address] [place] [address] [facility] [address] [place], [place] [address] Hemoglobin/Blood,Ur Negative Normal Negative [facility] Comment on above: Performed By: #### C AD #### [facility] [address] [place] [address] [facility] [address] [place], [place] [address] Ketones Ql (U) Negative Normal Negative [facility] Comment on above: Performed By: #### C AD #### [facility] [address] [place] [address] [facility] [address] [place], [place] [address] Leukest Negative Normal Negative [facility] Comment on above: Performed By: #### C AD #### [facility] [address] [place] [address] [facility] [address] [place], [place] [address] Nitrite Ql (U) Negative Normal Negative [facility] Comment on above: Performed By: #### C AD #### [facility] [address] [place] [address] [facility] [address] [place], [place] [address] pH (U) 8.5 [pH] High 5.0-8.0 [facility] Comment on above: Performed By: #### C AD #### [facility] [address] [place] [address] [facility] [address] [place], [place] [address] Protein, Urine Negative Normal Negative [facility] Comment on above: Performed By: #### C AD #### [facility] [address] [place] [address] [facility] [address] [place], [place] [address] Specific [place], Ur 1.015 Normal 1.005-1.[address] [facility] Comment on above: Performed By: #### C AD #### [facility] [address] [place] [address] [facility] [address] [place], [place] [address] Urobilinogen Qn (U) 0.2 {Marianne'U}/dL Normal 0.2-1.0 [facility] Comment on above: Performed By: #### C AD #### [facility] [address] [place] [address] [address] Vitamin B1, Whole Blon 05-30 Vitamin B1 (TDP), WB 207.1 nmol/L Normal 84.0-213.0 [facility] Comment on above: Result Comment: This assay measures the concentration of thiamine diphosphate (TDP), the primary active form of vitamin B1. Approximately 90 percent of vitamin B1 present in whole blood is TDP. Thiamine and thiamine monophosphate, which comprise the remaining 10 percent, are not measured. This test was developed and its performance characteristics determined by [facility]'s Isrrael Perez [facility] [place] ( [facility]). It has not been cleared or approved by the FDA. [facility] is regulated under CLIA as qualified to perform high complexity testing. This test is used for clinical purposes. It should not be regarded as investigational or for research. Performed By: #### S YPHTX, B1WB ####[facility] [place], [place] [phone] Vitamin B12on 05-30-2021 Cobalamin (Vitamin B12) [Mass/Vol] 494 pg/mL Normal 232-1245 [facility] Comment on above: Performed By: #### C AD #### [facility] [address] [place] [address] [place] [address] [place], [place] [address] ALLIED HEALTHon 05-29-2021 [facility] HNO ID: [id number] Author: RT Kitty(Lisa) Service: Radiology Author Type: Technologist Type: [facility] Filed: 05/29/2021 8:51 PM Note [...] RT Kitty(R) May 29, 2021 8:51 PM [facility] HNO ID: [id number] Author: Markie Fish Service: ? Author Type: Well Puller Type: [facility] Filed: 05/29/2021 8:39 PM Note [...] Markie Fish May 29, 2021 8:38 PM [facility] CBC and Differentialon 05-29 Abs Baso 0.05 k/uL Normal <0.11 [facility] Comment on above: Performed By: #### C MP, MG1, CBCDIF ####[facility] [address] [place] [address] Abs [place] 0.72 k/uL Normal <0.87 [facility] Comment on above: Performed By: #### C MP, MG1, CBCDIF ####[facility] [address] [place] [address] Abs Neut 7.86 k/uL High 1.45-7.50 [facility] Comment on above: Performed By: #### C MP, MG1, CBCDIF ####[place] [address] Absolute nRBC <0.01 Normal <0.01 [facility] Comment on above: Performed By: #### C MP, MG1, CBCDIF ####[place] [address] Basophils/100 WBC (Bld) 0.5 % [facility] Comment on above: Performed By: #### C MP, MG1, CBCDIF ####[place] [address] DTYPE Auto Diff Normal [facility] Comment on above: Performed By: #### C MP, MG1, CBCDIF ####[place] [address] Eosinophils (Bld) [#/Vol] 0.10 10*3/uL Normal <0.46 [facility] Comment on above: Performed By: #### C MP, MG1, CBCDIF ####[place] [address] Eosinophils/100 WBC (Bld) 0.9 % [facility] Comment on above: Performed By: #### C MP, MG1, CBCDIF ####[place] [address] Erythrocyte distribution width (RBC) [Ratio] 15.5 % High 11.5-15.0 [facility] Comment on above: Performed By: #### C MP, MG1, CBCDIF ####[place] [address] Hematocrit (Bld) [Volume fraction] 41.6 % Normal 39.0-51.0 [facility] Comment on above: Performed By: #### C MP, MG1, CBCDIF ####[facility] [address] [place] [address] Hemoglobin (Bld) [Mass/Vol] 12.7 g/dL Low 13.0-17.0 [facility] Comment on above: Performed By: #### C MP, MG1, CBCDIF ####[facility] [address] [place] [address] Lymphocytes (Bld) [#/Vol] 2.04 10*3/uL Normal 1.00-4.00 [facility] Comment on above: Performed By: #### C MP, MG1, CBCDIF ####[facility] [address] [place] [address] Lymphocytes/100 WBC (Bld) 18.9 % Normal [facility] Comment on above: Performed By: #### C MP, MG1, CBCDIF ####[facility] [address] [place] [address] MCH 27.3 pG Normal 26.0-34.0 [facility] Comment on above: Performed By: #### C MP, MG1, CBCDIF ####[facility] [address] [place] [address] MCHC (RBC) [Mass/Vol] 30.5 g/dL Normal 30.5-36.[address] [facility] Comment on above: Performed By: #### C MP, MG1, CBCDIF ####[facility] [address] [place], [place] [address] MCV (RBC) [Entitic vol] 89.5 fL Normal 80.0-100.0 [facility] Comment on above: Performed By: #### C MP, MG1, CBCDIF ####[facility] [address] [place], [place] [address] Monocytes/100 WBC (Bld) 6.7 % Normal [facility] Comment on above: Performed By: #### C MP, MG1, CBCDIF ####[facility] [address] [place], [place] [address] Neutrophils/100 WBC (Bld) 73.0 % Normal [facility] Comment on above: Performed By: #### C MP, MG1, CBCDIF ####[facility] [address] [place] [address] NRBCs 0.0 /100 WBC Normal 0 [facility] Comment on above: Performed By: #### C MP, MG1, CBCDIF ####[facility] Lhcautbaat7264 [address] Platelet mean volume (Bld) [Entitic vol] 10.1 fL Normal 9.0-12.7 [facility] Comment on above: Performed By: #### C MP, MG1, CBCDIF ####[facility] [address] [place] [address] Platelets (Bld) [#/Vol] 291 10*3/uL Normal 150-400 [facility] Comment on above: Performed By: #### C MP, MG1, CBCDIF ####[facility] [address] [place] [address] RBC (Bld) [#/Vol] 4.65 10*6/uL Normal 4.20-6.00 [facility] Comment on above: Performed By: #### C MP, MG1, CBCDIF ####[facility] [address] [place] [address] WBC (Bld) [#/Vol] 10.77 10*3/uL Normal 3.70-11.00 [facility] Comment on above: Performed By: #### C MP, MG1, CBCDIF ####[facility] [address] [place] [phone] CT BRAIN WO IVCONon 05-29-19 CT BRAIN WO IVCON * * *Final Report* * * DATE OF EXAM: May 29 2021 8:42PM [facility] 0504 - CT BRAIN WO IVCON / PROCEDURE REASON: Head trauma, headache * * * * Physician Interpretation * * * * EXAMINATION: CT CERVICAL SPINE WO IVCON, CT BRAIN WO IVCON CLINICAL HISTORY: C-spine trauma, NEXUS/CCR positive (accession [id number]), Head trauma, headache (accession [id number]) TECHNIQUE: Serial axial unenhanced images were obtained from the vertex to the foramen magnum. Spiral, high resolution axial unenhanced images were obtained from the skull base to the cervicothoracic junction with sagittal and coronal planar reconstructions. Dose-Length Product (DLP): 2132 mGy*cm. CT Dose Reduction Employed: Automated exposure control (AEC) COMPARISON: 08/13/[address] RESULT: BRAIN: Post-operative change: Right parietal approach NURSING COORDINATOR shunt is intact. The intracranial fragments of [...] vertebrae with counting from the craniocervical junction. [employer] Driver: OG Transcribe Date/Time: May 29 2021 8:59P Dictated by : CARLOS YOUNGER MD This examination was interpreted and the report reviewed and electronically signed by: CARLOS YOUNGER MD on May 29 2021 9:14PM EST [id number] [facility] CT CERVICAL SPINE WO IVCONon 05-29-2021 CT CERVICAL SPINE WO IVCON * * *Final Report* * * DATE OF EXAM: May 29 2021 8:42PM [facility] 0505 - CT CERVICAL SPINE WO IVCON / PROCEDURE REASON: C-spine trauma, NEXUS/CCR positive * * * * Physician Interpretation * * * * EXAMINATION: CT CERVICAL SPINE WO IVCON, CT BRAIN WO IVCON CLINICAL HISTORY: C-spine trauma, NEXUS/CCR positive (accession [id number]), Head trauma, headache (accession [id number]) TECHNIQUE: Serial axial unenhanced images were obtained from the vertex to the foramen magnum. Spiral, high resolution axial unenhanced images were obtained from the skull base to the cervicothoracic junction with sagittal and coronal planar reconstructions. Dose-Length Product (DLP): 2132 mGy*cm. CT Dose Reduction Employed: Automated exposure control (AEC) COMPARISON: 08/13/[address] RESULT: BRAIN: Post-operative change: Right parietal approach NURSING COORDINATOR shunt is intact. The intracranial fragments of [...] vertebrae with counting from the craniocervical junction. [employer] Driver[facility] Transcribe Date/Time: May 29 2021 8:59P Dictated by : CARLOS YOUNGER MD This examination was interpreted and the report reviewed and electronically signed by: CARLOS YOUNGER MD on May 29 2021 9:14PM EST [id number] [facility] Cepheid Bill only (EXCFR)on 05-29-2021 Cepheid Bill only (EXCFR) Billed for services performed Normal [facility] Comment on above: Performed By: #### C AD #### [facility] [address] [place] [address] [facility] [address] [place], [place] [address] Comp Metabolic Panelon 05-29 Albumin [Mass/Vol] 4.1 g/dL Normal 3.9-4.9 [facility] Comment on above: Performed By: #### C MP ####[facility] [address] [place] [address] ALP [Catalytic activity/Vol] 86 U/L Normal 38-113 [facility] Comment on above: Performed By: #### C MP ####[facility] [address] [place] [address] ALT [Catalytic activity/Vol] 15 U/L Normal 10-54 [facility] Comment on above: Performed By: #### C MP ####[facility] [address]cm[address]86[address] [place] [address] Anion gap [Moles/Vol] 9 mmol/L Normal 9-[address] [facility] Comment on above: Performed By: #### C MP ####[facility] [address]jhkgjimqh6[address] [place] [address] AST [Catalytic activity/Vol] 22 U/L Normal 14-40 [facility] Comment on above: Performed By: #### C MP ####[facility] Umxf[address]axo[address] [place] [address] Bilirubin [Mass/Vol] 0.2 mg/dL Normal 0.2-1.3 [facility] Comment on above: Performed By: #### C MP ####[facility] Aswlqbkmoc6723 [place] [address] Calcium [Mass/Vol] 9.1 mg/dL Normal 8.5-10.2 [facility] Comment on above: Performed By: #### C MP ####[facility] Oet[address]raycf4385 [place] [address] Chloride [Moles/Vol] 103 mmol/L Normal 97-105 [facility] Comment on above: Performed By: #### C MP ####[facility] [address]aeherbir[address]167 [place] [address] CO2 [Moles/Vol] 29 mmol/L Normal 22-30 [facility] Comment on above: Performed By: #### C MP ####[facility] Helpuwsxpg6052 [place] [address] Creatinine [Mass/Vol] 0.89 mg/dL Normal 0.73-1.[address] [facility] Comment on above: Performed By: #### C MP ####[facility] Hntxwmfozp2016 [place] [address] eGFR- Amer. >60 Normal [facility] Comment on above: Performed By: #### C MP ####[facility] Aqskcylqyp2351 [place] [address] eGFR-All Other Races >60 Normal [facility] Comment on above: Result Comment: [...] at [email or web address]. Performed By: #### C MP ####[facility] Dighwvxewm3207 [address] Glucose [Mass/Vol] 120 mg/dL High 74-99 [facility] Comment on above: Result Comment: The [...] 2016.39(Suppl 1). Performed By: #### C MP ####[facility] [address] [place] [address] Potassium [Moles/Vol] 4.2 mmol/L Normal 3.7-5.[address] [facility] Comment on above: Performed By: #### C MP ####[facility] [address] [place] [address] Protein [Mass/Vol] 7.1 g/dL Normal 6.3-8.0 [facility] Comment on above: Performed By: #### C MP ####[place] [address] Sodium [Moles/Vol] 141 mmol/L Normal 136-144 [facility] Comment on above: Performed By: #### C MP ####[facility] [address] [place] [address] Urea nitrogen [Mass/Vol] 11 mg/dL Normal 9-24 [facility] Comment on above: Performed By: #### C MP ####[place] [address] Albumin [Mass/Vol] 4.1 g/dL Normal 3.9-4.9 [facility] Comment on above: Performed By: #### C MP, MG1, CBCDIF ####[place] [address] ALP [Catalytic activity/Vol] 86 U/L Normal 38-113 [facility] Comment on above: Performed By: #### C MP, MG1, CBCDIF ####[place] [address] ALT Unable to assay due to interference from hemolysis. Suggest reorder as clinically indicated. Normal 10-54 [facility] Comment on above: Result Comment: Call ed to LISA Rea at 2129 on 05.29.21 by Sabino Performed By: #### C MP, MG1, CBCDIF ####[facility] Eliikdowcc7[address] [place] [address] Anion gap [Moles/Vol] 12 mmol/L Normal 9-[address] [facility] Comment on above: Performed By: #### C MP, MG1, CBCDIF ####[facility] [address] [place] [address] AST Unable to assay due to interference from hemolysis. Suggest reorder as clinically indicated. Normal 14-40 [facility] Comment on above: Result Comment: Call ed to ED Álvaro at 2129 on 05.29.21 by Sabino Performed By: #### C MP, MG1, CBCDIF ####[facility] [address] [place] [address] Bilirubin [Mass/Vol] 0.2 mg/dL Normal 0.2-1.3 [facility] Comment on above: Performed By: #### C MP, MG1, CBCDIF ####[facility] [address] [place] [address] Calcium [Mass/Vol] 9.0 mg/dL Normal 8.5-10.2 [facility] Comment on above: Performed By: #### C MP, MG1, CBCDIF ####[facility] Onxhgzwwxt8317 [place] [address] Chloride [Moles/Vol] 102 mmol/L Normal 97-105 [facility] Comment on above: Performed By: #### C MP, MG1, CBCDIF ####[facility] Oesbmgkrkh6447 [place] [address] CO2 [Moles/Vol] 27 mmol/L Normal 22-30 [facility] Comment on above: Performed By: #### C MP, MG1, CBCDIF ####[facility] [address] [place] [address] Creatinine [Mass/Vol] 0.75 mg/dL Normal 0.73-1.[address] [facility] Comment on above: Performed By: #### C MP, MG1, CBCDIF ####[facility] Zqx[address]uh9306 [place] [address] eGFR- Amer. >60 Normal [facility] Comment on above: Performed By: #### C MP, MG1, CBCDIF ####[facility] [address]qs[address]q1151 [place] [phone] eGFR-All Other Races >60 Normal [facility] Comment on above: Result Comment: [...] By: #### C MARÍA ELENA, MG1, CBCDIF ####[facility] Opiagxfqjx8786 [place] [phone] Glucose [Mass/Vol] 112 mg/dL High 74-99 [facility] Comment on above: Result Comment: The [...] Performed By: #### C MP, MG1, CBCDIF ####[facility] Gvulderucq8811 [place] [phone] Potassium Unable to assay due to interference from hemolysis. Suggest reorder as clinically indicated. Normal 3.7-5.1 [facility] Comment on above: Result Comment: Call ed to ED Álvaro at 2129 on 05.29.21 by Sabino Performed By: #### C MP, MG1, CBCDIF ####[facility] Uejcutizzw9628 [place] [phone] Protein [Mass/Vol] 7.3 g/dL Normal 6.3-8.0 [facility] Comment on above: Performed By: #### C MP, MG1, CBCDIF ####[facility] Scdmyoywqh8535 [phone] Sodium [Moles/Vol] 141 mmol/L Normal 136-144 [facility] Comment on above: Performed By: #### C MP, MG1, CBCDIF ####[facility] Yfxltfkihc6832 [place] [phone] Urea nitrogen [Mass/Vol] 11 mg/dL Normal 9-24 [facility] Comment on above: Performed By: #### C MP, MG1, CBCDIF ####[facility] Xuxtpbalvi6137 [place] [phone] ED PROV NOTEon 05-29-2021 ED PROV NOTE HNO ID: [id number] Author: Shanell Slaughter MD Service: ? Author [...] No radiographic evidence of acute cardiopulmonary disease. [employer]: [facility] Transcribe Date/Time: May 29 2021 8:53P [...] vertebrae with counting from the craniocervical junction. [employer]: [facility] Transcribe Date/Time: May 29 2021 8:59P [...] vertebrae with counting from the craniocervical junction. [employer]: [facility] Transcribe Date/Time: May 29 (more content not included)... 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 Provider Location: [facility] Facility Patient Location: Outpatient Hospital Physical Exam [...] Flavio Pandya, DO Flavio Pandya, 05/29/211909 Normal [facility] EXCOVD, Flu A/B, RSV (On int erfaces 1102,1120)on 05-29-2021 Influenza A PCR Negative Normal [facility] Comment on above: Performed By: #### C AD #### [facility] [address] [place], [place] [id number] [place] [address] Influenza B PCR Negative Normal [facility] Comment on above: Performed By: #### C AD #### [facility] [address] [place], [place] [address] [place] [address] RSV PCR Negative Normal [facility] Comment on above: Result Comment: This test has been authorized by [facility] under an Emergency Use Authorization (EUA). Performed By: #### C AD #### [facility] [address] [place] [address] SARS-CoV-2 (COVID-19) RNA MEGAN+probe Ql (Unsp spec) UPPER RESPIRATORY TRACT SWAB Normal [facility] Comment on above: Performed By: #### C AD #### [facility] [address] [place], [place] [address] [place] [address] SARS-CoV-2 (COVID-19) RNA MEGAN+probe Ql (Unsp spec) Negative for COVID19 (SARS CoV2) by RT-PCR or equivalent method. Normal Negative for COVID19 (SARS CoV2) by RT-PCR or equivalent method. [facility] Comment on above: Result Comment: This test has been authorized by [facility] under an Emergency Use Authorization (EUA). Performed By: #### C AD #### [facility] [address] [place], [place] [address] [place] [phone] Magnesiumon 05-29-2021 Magnesium [Mass/Vol] 2.2 mg/dL Normal 1.7-2.3 [facility] Comment on above: Performed By: #### C MP, MG1, CBCDIF ####[phone] NT Pro BNPon 05-29-2021 PRO B Natr Peptide 303 pg/mL High <125 [facility] Comment on above: Performed By: #### N TBNP ####[facility] Iuzsiakagv2845 [phone] Troponin Ton 05-29-2021 Troponin T <0.010 Normal 0.000-0.029 [facility] Comment on above: Performed By: #### T NT ####[facility] [address] [place] [phone] Troponin T Unable to assay due to interference from hemolysis. Suggest reorder as clinically indicated. Normal 0.000-0.029 [facility] Comment on above: Result Comment: Call ed to ED lÁvaro at 2129 on 05.29.21 by Sabino Performed By: #### T NT ####[facility] Wdzqcyxyoy4861 [phone] XR CHEST 1V FRONTAL PORTon 0 [...] No radiographic evidence of acute cardiopulmonary disease. [employer]: [facility] Transcribe Date/Time: May 29 2021 8:53P Dictated by : ROLY BANGURA MD This examination was interpreted and the report reviewed and electronically signed by: ROLY BANGURA MD on May 29 2021 8:54PM EST [id number] Normal [facility] COMPREHENSIVE PANELon 2020 Albumin [Mass/Vol] 3.9 g/dL Normal 3.4 - 5.0 [facility] Comment on above: Order Comment: PATIE NT FASTING Performed By: #### C MP #### [facility] [address] [place] [address] ALP [Catalytic activity/Vol] 71 U/L Normal 33 - 136 [facility] Comment on above: Order Comment: PATIE NT FASTING Performed By: #### C MP #### [facility] [address] [place] [address] ALT [Catalytic activity/Vol] 19 U/L Normal 10 - 52 [facility] Comment on above: Order Comment: PATIE NT FASTING Result Comment: Nasima ents treated with Sulfasalazine may generate falsely decreased results for ALT. Performed By: #### C MP #### [facility] [address] [place] [address] Anion gap [Moles/Vol] 13 mmol/L Normal 10 - 20 [facility] Comment on above: Order Comment: PATIE NT FASTING Performed By: #### C MP #### [facility] [address] [place] [address] AST [Catalytic activity/Vol] 20 U/L Normal 9 - 39 [facility] Comment on above: Order Comment: PATIE NT FASTING Performed By: #### C MP #### [facility] [address] [place] [address] Bilirubin [Mass/Vol] 0.6 mg/dL Normal 0.0 - 1.2 [facility] Comment on above: Order Comment: PATIE NT FASTING Performed By: #### C MP #### [facility] [address] [place] [address] Calcium [Mass/Vol] 9.0 mg/dL Normal 8.6 - 10.6 [facility] Comment on above: Order Comment: PATIE NT FASTING Performed By: #### C MP #### [facility] [address] [place] [address] Chloride [Moles/Vol] 103 mmol/L Normal 98 - 107 [facility] Comment on above: Order Comment: PATIE NT FASTING Performed By: #### C MP #### [facility] [address] [place] [address] Creatinine [Mass/Vol] 0.94 mg/dL Normal 0.50 - 1.30 [facility] Comment on above: Order Comment: PATIE NT FASTING Performed By: #### C MP #### [facility] [address] [place] [address] GFR- AM. >60 Normal >60 [facility] Comment on above: Order Comment: PATIE NT FASTING Result Comment: CALC ULATIONS OF ESTIMATED GFR ARE PERFORMED USING THE MDRD STUDY EQUATION FOR THE IDMS-TRACEABLE CREATININE METHODS. CLIN CHEM 2007;53:766-72 Performed By: #### C MP #### [facility] [address] [place] [address] GFR-NON AM. >60 Normal >60 [facility] Comment on above: Order Comment: PATIE NT FASTING Performed By: #### C MP #### [facility] [address] [place] [address] Glucose [Mass/Vol] 85 mg/dL Normal 74 - 99 [facility] Comment on above: Order Comment: PATIE NT FASTING Performed By: #### C MP #### [facility] [address] [place] [address] HCO3 (Bld) [Moles/Vol] 30 mmol/L Normal 21 - 32 [facility] Comment on above: Order Comment: PATIE NT FASTING Performed By: #### C MP #### [facility] [address] [place] [address] Potassium [Moles/Vol] 4.1 mmol/L Normal 3.5 - 5.3 [facility] Comment on above: Order Comment: PATIE NT FASTING Performed By: #### C MP #### [facility] [address] [place] [address] Protein [Mass/Vol] 6.6 g/dL Normal 6.4 - 8.2 [facility] Comment on above: Order Comment: PATIE NT FASTING Performed By: #### C MP #### [facility] [address] [place] [address] Sodium [Moles/Vol] 142 mmol/L Normal 136 - 145 [facility] Comment on above: Order Comment: PATIE NT FASTING Performed By: #### C MP #### [facility] [address] [place] [address] Urea nitrogen [Mass/Vol] 14 mg/dL Normal 6 - 23 [facility] Comment on above: Order Comment: PATIE NT FASTING Performed By: #### C MP #### [facility] [address] [place] [address] LIPID PANEL (CORONARY RISK 2 )on 09-03-2020 Cholesterol [Mass/Vol] 210 mg/dL High 0 - 199 [facility] Comment on above: Order Comment: PATIE NT [...] Performed By: #### L IPID #### [facility] [address] [place] [address] Cholesterol in HDL [Mass/Vol] 50.1 mg/dL Normal [facility] Comment on above: Order Comment: PATIE NT FASTING Result Comment: . AGE VERY LOW LOW NORMAL HIGH 0-19 Y < 35 < 40 40-45 ---- 20-24 Y ---- < 40 >45 ---- >24 Y ---- < 40 40-60 >60 . Performed By: #### L IPID #### [facility] [address] [place] [address] Cholesterol in LDL [Mass/Vol] 130 mg/dL High 0 - 99 [facility] Comment on above: Order Comment: PATIE NT FASTING Result Comment: . NEAR BORD AGE DESIRABLE OPTIMAL HIGH HIGH VERY HIGH 0-19 Y 0 - 109 --- 110-129 >/= 130 ---- 20-24 Y 0 - 119 --- 120-159 >/= 160 ---- >24 Y 0 - 99 100-129 130-159 160-189 >/=190 . Performed By: #### L IPID #### [facility] [address] [place] [address] Cholesterol in VLDL [Mass/Vol] 30 mg/dL Normal 0 - 40 [facility] Comment on above: Order Comment: PATIE NT FASTING Performed By: #### L IPID #### [facility] [address] [place] [address] Cholesterol.total/Chol esterol in HDL [Mass ratio] 4.2 {ratio} Normal [facility] Comment on above: Order Comment: PATIE NT FASTING Result Comment: REF VALUES DESIRABLE < 3.4 HIGH RISK > 5.0 Performed By: #### L IPID #### [facility] [address] [place] [address] Triglyceride [Mass/Vol] 152 mg/dL High 0 - 149 [facility] Comment on above: Order Comment: PATIE NT [...] Performed By: #### L IPID #### [facility] [address] [place] [address] PROSTATE SPEC.AG,SCREENon PROSTATE SPEC.AG,SCREEN 0.37 ng/mL Normal 0.00 - 4.00 [facility] Comment on above: Order Comment: PATIE NT FASTING Result Comment: The FDA requires that the method used for PSA assay be reported to the physician. Values obtained with different assay methods must not be used interchangeably. This test was performed at [facility] using the Siem[employer] PSA method, which is a sandwich immunoassay using chemiluminescence for quantitation. The assay is approved for measurement of prostate-specific antigen (PSA) in serum and may be used in conjunction with a digital rectal examination in men 50 years and older as an aid in detection of prostate cancer. 4-Gepnx-iikjhfbnl inhibitors (e.g. Proscar, Finasteride, Avodart, Dutasteride and Elizabeth) for the treatment of BPH have been shown to lower PSA levels by an average of 50% after 6 months of treatment. Performed By: #### P SAS #### [facility] [address] [place] [address] TSH WITH REFLEX TO FREE T4 I F ABNORMALon 09-03-2020 TSH Qn 0.97 m[IU]/L Normal 0.44 - 3.98 [facility] Comment on above: Order Comment: PATIE NT FASTING Result Comment: TSH testing is performed using different testing methodology at [facility] than at other [facility]. Direct result comparisons should only be made within the same method. Performed By: #### T HYDS #### [facility] [address] [place] [address] CBC AND DIFFERENTIALon 09-02 % AUTOMATED IMMATURE GRAN 0.3 % Normal 0.0 - 0.9 [facility] Comment on above: Order Comment: PATIE NT FASTING Result Comment: [place] Granulocyte Count (IG) includes promyelocytes, myelocytes and metamyelocytes but does not include bands. Percent differential counts (%) should be interpreted in the context of the absolute cell counts (cells/L). Performed By: #### C BCDF #### [facility] [address] [place] [address] Basophils (Bld) [#/Vol] 0.07 10*3/uL Normal 0.00 - 0.10 [facility] Comment on above: Order Comment: PATIE NT FASTING Result Comment: Auto mated WBC differential has been confirmed by manual smear. Performed By: #### C BCDF #### [facility] [address] [place] [address] Basophils/100 WBC (Bld) 0.9 % Normal 0.0 - 2.0 [facility] Comment on above: Order Comment: PATIE NT FASTING Performed By: #### C BCDF #### [facility] [address] [place] [address] Eosinophils (Bld) [#/Vol] 0.21 10*3/uL Normal 0.00 - 0.70 [facility] Comment on above: Order Comment: PATIE NT FASTING Performed By: #### C BCDF #### [facility] [address] [place] [address] Eosinophils/100 WBC (Bld) 2.8 % Normal 0.0 - 6.0 [facility] Comment on above: Order Comment: PATIE NT FASTING Performed By: #### C BCDF #### [facility] [address] [place] [address] Lymphocytes (Bld) [#/Vol] 2.28 10*3/uL Normal 1.20 - 4.80 [facility] Comment on above: Order Comment: PATIE NT FASTING Performed By: #### C BCDF #### [place] [address] [place] [address] Lymphocytes/100 WBC (Bld) 30.9 % Normal 13.0 - 44.0 [facility] Comment on above: Order Comment: PATIE NT FASTING Performed By: #### C BCDF #### [facility] [address] [place] [address] Monocytes (Bld) [#/Vol] 0.50 10*3/uL Normal 0.10 - 1.00 [facility] Comment on above: Order Comment: PATIE NT FASTING Performed By: #### C BCDF #### [facility] [address] [place] [address] Monocytes/100 WBC (Bld) 6.8 % Normal 2.0 - 10.0 [facility] Comment on above: Order Comment: PATIE NT FASTING Performed By: #### C BCDF #### [facility] [address] [place] [address] Neutrophils (Bld) [#/Vol] 4.29 10*3/uL Normal 1.20 - 7.70 [facility] Comment on above: Order Comment: PATIE NT FASTING Performed By: #### C BCDF #### [facility] [address] [place] [address] Neutrophils/100 WBC (Bld) 58.3 % Normal 40.0 - 80.0 [facility] Comment on above: Order Comment: PATIE NT FASTING Performed By: #### C BCDF #### [facility] [address] [place] [address] Erythrocyte distribution width (RBC) [Ratio] 14.6 % High 11.5 - 14.5 [facility] Comment on above: Order Comment: PATIE NT FASTING Performed By: #### C BCDF #### [facility] [address] [place] [address] Hematocrit (Bld) [Volume fraction] 43.1 % Normal 41.0 - 52.0 [facility] Comment on above: Order Comment: PATIE NT FASTING Performed By: #### C BCDF #### [facility] [address] [place] [address] Hemoglobin (Bld) [Mass/Vol] 13.3 g/dL Low 13.5 - 17.5 [facility] Comment on above: Order Comment: PATIE NT FASTING Performed By: #### C BCDF #### [facility] [address] [place] [address] MCHC (RBC) [Mass/Vol] 30.9 g/dL Low 32.0 - 36.0 [facility] Comment on above: Order Comment: PATIE NT FASTING Performed By: #### C BCDF #### [facility] [address] [place] [address] MCV (RBC) [Entitic vol] 92 fL Normal 80 - 100 [facility] Comment on above: Order Comment: PATIE NT FASTING Performed By: #### C BCDF #### [facility] [address] [place] [address] NUCLEATED RBC 0.0 /100 WBC Normal 0.0-0.0 [facility] Comment on above: Order Comment: PATIE NT FASTING Performed By: #### C BCDF #### [facility] [address] [place] [address] Platelets (Bld) [#/Vol] 267 10*3/uL Normal 150 - 450 [facility] Comment on above: Order Comment: PATIE NT FASTING Performed By: #### C BCDF #### [facility] [address] [place] [address] RBC 4.69 x10E12/L Normal 4.50 - 5.90 [facility] Comment on above: Order Comment: PATIE NT FASTING Performed By: #### C BCDF #### [facility] [address] [place] [address] WBC (Bld) [#/Vol] 7.4 10*3/uL Normal 4.4 - 11.3 [facility] Comment on above: Order Comment: PATIE NT FASTING Performed By: #### C BCDF #### [facility] [address] [place] [address] RED CELL MORPHOLOGYon 2020 CHANELL CELLS Few Normal [facility] Comment on above: Order Comment: PATIE NT FASTING Performed By: #### M ORP2 #### [facility] [address] [place] [address] OVALOCYTES Few Normal [facility] Comment on above: Order Comment: PATIE NT FASTING Performed By: #### M ORP2 #### [facility] [id number] [place] [address] POLYCHROMASIA Mild Normal [facility] Comment on above: Order Comment: PATIE NT FASTING Performed By: #### M ORP2 #### [facility] [id number] [place] [address] RBC FRAGMENTS Few Normal [facility] Comment on above: Order Comment: PATIE NT FASTING Performed By: #### M ORP2 #### [facility] [address] [place] [address] RBC morphology finding Nom (Bld) See Below Normal [facility] Comment on above: Order Comment: PATIE NT FASTING Performed By: #### M ORP2 #### [facility] [address] [place] [address] No Panel Informationon 01-19 76 1 [facility]iolo [...] [place] Work Phone: [email or web address] ?RetrieveTestByDateTime?P [email or web address]&Date=1 09-13-2019&Time=15%3a11%3a 03%3a00&TestType=ECG&Site =1&OutputType=PDF&Ext=PDF [facility] [place] Work Phone: Otheron 11-13-2019 [facility] Complete Blood Count + Diffe rentialon 11-06-2019 Basophils (Bld) [#/Vol] 0.06 {x10E9/L} See Below [facility] Work Phone: Comment on above: Reference Range: 0.0 0 - 0.10 Basophils/100 WBC (Bld) 0.8 % 0.0 - 2.0 [facility] Work Phone: [phone] Eosinophils (Bld) [#/Vol] 0.18 {x10E9/L} See Below [facility] Work Phone: Comment on above: Reference Range: 0.0 0 - 0.70 Eosinophils/100 WBC (Bld) 2.5 % 0.0 - 6.0 [facility] Work Phone: Erythrocyte distribution width [...] Lymphocytes/100 WBC (Bld) 29.9 % See Below [facility] Work Phone: Comment on above: Reference Range: 13. 0 - 44.0 MCHC (RBC) [Mass/Vol] 30.8 g/dL below low threshold See Below [facility] Work Phone: Comment on above: Reference Range: 32. 0 - 36.0 MCV (RBC) [Entitic vol] 94 fL 80 - 100 [facility] Work Phone: Monocytes (Bld) [#/Vol] 0.49 {x10E9/L} See Below [facility] Work Phone: Comment on above: Reference Range: 0.1 0 - 1.00 Monocytes/100 WBC (Bld) 6.8 % 2.0 - 10.0 [facility] Work Phone: Neutrophils (Bld) [#/Vol] 4.30 {x10E9/L} See Below [facility] Work Phone: Comment on above: Reference Range: 1.2 0 - 7.70 Neutrophils/100 WBC (Bld) 59.9 % See Below [facility] Physician [facility] Work Phone: Comment on above: Reference Range: 40. 0 - 80.0 Platelets (Bld) [#/Vol] 270 {x10E9/L} 150 - 450 [facility] Work Phone: RBC (Bld) [#/Vol] 4.85 {x10E12/L} See Below [facility] Physician [facility] Work Phone: Comment on above: Reference Range: 4.5 0 - 5.90 WBC (Bld) [#/Vol] 0.0 {/100_WBC} 0.0-0.0 [facility] Work Phone: WBC (Bld) [#/Vol] 7.2 {x10E9/L} 4.4 - 11.3 [facility] Work Phone: Complete Blood Count + Differential 0.1 % 0.0 - 0.9 [facility] Work Phone: Comment on above: Immature Granulocyte Count (IG) includes promyelocytes, myelocytes and metamyelocytes but does not include bands. Percent differential counts (%) should be interpreted in the context of the absolute cell counts (cells/L). Lipid Panelon 11-06-2019 Cholesterol [Mass/Vol] 181 mg/dL 0 - 199 [facility] Physician [facility] Work Phone: Comment on above: . [...] dosing. Cholesterol in HDL [Mass/Vol] 52.1 mg/dL [facility] Physician [facility] Work Phone: Comment on above: . AGE VERY LOW LOW N ORMAL HIGH 0-19 Y < 35 < 40 40-45 ---- 20-24 Y ---- < 40 >45 ---- >24 Y ---- < 40 40-60 >60. Cholesterol in LDL [Mass/Vol] 97 mg/dL 0 - 99 [facility] Work Phone: Comment on above: . NEAR BORD AGE IZABELLA RABLE OPTIMAL HIGH HIGH VERY HIGH 0-19 Y 0 - 109 --- 110-129 >/= 130 ---- 20-24 Y 0 - 119 --- 120-159 >/= 160 ---- >24 Y 0 - 99 100-129 130-159 160-189 >/=190. Cholesterol.total/Chol esterol in HDL [Mass ratio] 3.5 {ratio} [facility] Work Phone: Comment on above: REF VALUESDESIRABLE < 3.4HIGH RISK > 5.0 Triglyceride [Mass/Vol] 158 mg/dL above high threshold 0 - 149 [facility] Work Phone: Comment on above: . [...] Lipid Panel 32 mg/dL 0 - 40 [facility] Work Phone: Metabolic Panelon 11-06-2019 ALP [Catalytic activity/Vol] 70 U/L 33 - 136 [facility] Work Phone: Anion gap [Moles/Vol] 13 mmol/L 10 - 20 [facility] Work Phone: Bilirubin [Mass/Vol] 0.6 mg/dL 0.0 - 1.2 [facility] Phys[facility] Work Phone: Calcium [Mass/Vol] 9.4 mg/dL 8.6 - 10.6 [facility] Work Phone: Chloride [Moles/Vol] 99 mmol/L 98 - 107 [facility] Work Phone: CO2 [Moles/Vol] 30 mmol/L 21 - 32 [facility] Physician [facility] Work Phone: Creatinine [Mass/Vol] 0.87 mg/dL See Below [facility] Physician [facility] Work Phone: Comment on above: Reference Range: 0.5 0 - 1.30 Glucose [Mass/Vol] 89 mg/dL 74 - 99 [facility] Physician [facility] Work Phone: Potassium [Moles/Vol] 4.3 mmol/L 3.5 - 5.3 [facility] Work Phone: Protein [Mass/Vol] 7.3 g/dL 6.4 - 8.2 [facility] Work Phone: Sodium [Moles/Vol] 138 mmol/L 136 - 145 [facility] Work Phone: Urea nitrogen [Mass/Vol] 14 mg/dL 6 - 23 [facility] Work Phone: Otheron 11-06-2019 Albumin BCP dye [Mass/Vol] 4.4 g/dL 3.4 - 5.0 [facility] Work Phone: ALT With P-5'-P [Catalytic activity/Vol] 11 U/L 10 - 52 [facility] Work Phone: Comment on above: Patients treated wit h Sulfasalazine may generate falsely decreased results for ALT. AST With P-5'-P [Catalytic activity/Vol] 17 U/L 9 - 39 [facility] Work Phone: >60 >60 [facility] Work Phone: Comment on above: CALCULATIONS OF LUZMARIA MATED GFR ARE PERFORMED USING THE MDRD STUDY EQUATION FOR THE IDMS-TRACEABLE CREATININE METHODS. CLIN CHEM 2007;53:766-72 Culture, urine Bacteria identified Cx Nom (U) Mixed Gram Pos & Gram Neg Org [facility] Work Phone: Bacteria identified Cx Nom (U) Klebsiella pneumoniae sp pneum [facility] Work Phone: Vital Signs Date Time Vital Sign Value Performing Clinician Facility 09-13-2023 11:48-0400 Body height 175.3 cm Rebecca Buck MD Work Phone: [facility] 09-13-2023 11:48-0400 Body mass index (BMI) [Ratio] 25.84 kg/m2 Rebecca Buck MD Work Phone: [facility] 09-13-2023 11:48-0400 Body weight 79.38 kg Rebecca Buck MD Work Phone: [facility] 08-13-2023 09:56-0400 Body height 175.3 cm Rebecca Buck MD Work Phone: [facility] 08-13-2023 09:56-0400 Body mass index (BMI) [Ratio] 25.84 kg/m2 Rebecca Buck MD Work Phone: [facility] 08-13-2023 09:56-0400 Body weight 79.38 kg Rebecca Buck MD Work Phone: [facility] 03-02-2022 18:49-0400 Body temperature 98.01 [degF] Lanette Munguia DO Work Phone: [employer] 03-02-2022 18:49-0400 Diastolic blood pressure 72 mm[Hg] Lan[facility] 03-02-2022 18:49-0400 Heart rate 94 /min Lanette Munguia DO Work Phone: [facility] 03-02-2022 18:49-0400 Respiratory rate 18 /min Lanette Munguia DO Work Phone: [facility] 03-02-2022 18:49-0400 SaO2% (BldA) [Mass fraction] 98 % Lanette Munguia DO Work Phone: [facility] 03-02-2022 18:49-0400 Systolic blood pressure 104 mm[Hg] Lanette Munguia DO Work Phone: [facility] 03-02-2022 11:55-0400 Body height 175.3 cm Lanette Munguia DO Work Phone: [facility] 03-02-2022 11:55-0400 Body mass index (BMI) [Ratio] 25.84 kg/m2 Lanette Munguia DO Work Phone: [facility] 03-02-2022 11:55-0400 Body weight 79.38 kg Lanette Munguia DO Work Phone: [facility] 12-22-2021 02:08-0400 Diastolic blood pressure 67 mm[Hg] Sharon Olivia MD Work Phone: [facility] 12-22-2021 02:08-0400 Heart rate 77 /min Sharon Olivia MD Work Phone: [facility] 12-22-2021 02:08-0400 Respiratory rate 16 /min Sharon Olivia MD Work Phone[facility] 12-22-2021 02:08-0400 SaO2% (BldA) [Mass fraction] 96 % Sharon Olivia MD Work Phone: [facility] 12-22-2021 02:08-0400 Systolic blood pressure 108 mm[Hg] Sharon Olivia MD Work Phone: [facility] 12-21-2021 23:52-0400 Body height 175.3 cm Sharon Olivia MD Work Phone: [facility] 12-21-2021 23:52-0400 Body mass index (BMI) [Ratio] 25.84 kg/m2 Sharon Olivia MD Work Phone: [facility] 12-21-2021 23:52-0400 Body temperature 97.9 [degF] Sharon [...] Miguel Angel DO Work Phone: [facility] 10-29-2021 07:38-0400 Diastolic blood pressure 79 mm[Hg] Lisa Miguel Angel DO Work Phone: [facility] 10-29-2021 07:38-0400 Heart rate 80 /min Lisa Miguel Angel DO Work Phone: [facility] 10-29-2021 07:38-0400 Respiratory rate 18 /min Lisa Miguel Angel DO Work Phone: [facility] 10-29-2021 07:38-0400 SaO2% (BldA) [Mass fraction] 96 % Lisa Miguel Angel DO Work Phone: [facility] 10-29-2021 07:38-0400 Systolic blood pressure 123 mm[Hg] Lisa Miguel Angel DO Work Phone: [facility] 10-25-2021 13:55-0400 Body height 170.2 cm Lisa Miguel Angel DO Work Phone: [facility] 10-21-2021 00:57-0400 Body mass index (BMI) [Ratio] 37.58 kg/m2 Lisa Miguel Angel DO Work Phone: [facility] 10-21-2021 00:57-0400 Body weight 108.86 kg Lisa Miguel Angel DO Work Phone: [facility] 07-13-2020 13:21-0500 BMI (Body Mass Index) 40.47 kg/m2 Monika Staley [facility] Work Phone: 07-13-2020 13:21-0500 Body Temperature 98 [degF] Monika Staley [facility] Work Phone: 07-13-2020 13:21-0500 [...] Source: 04-13-2020 15:33-0500 0 1 Wing Ritter [facility] Work Phone: Comment on above: Pain Scale 01-20-2020 16:39-0400 Body height 175.26 cm Monika Staley MD [facility] [address] [place] Work Phone: 01-20-2020 16:39-0400 Body mass index (BMI) [Ratio] 39.28 kg/m2 Monika Staley MD HA-Kswawoiouk-Nwj russ [address] [place] Work Phone: 01-20-2020 16:39-0400 Body surface area Derived from formula 2.33 m2 Monika Staley MD EN-Sqpwwxnrfg-Whg russ [address] [place] Work Phone: 01-20-2020 16:39-0400 Body weight 120.66 kg Monika Satley MD [facility] [address] [place] Work Phone: 01-20-2020 16:39-0400 Diastolic blood pressure 84 mm[Hg] Monika Staley MD UN-Nlbcnpnvmm-Ikh russ [address] [place] Work Phone: Comment on above: Location: [facility]; Position: Sitting 01-20-2020 16:39-0400 Heart rate 80 /min Monika Staley MD, [facility] [address] [place] Work Phone: 01-20-2020 16:39-0400 SaO2% (BldA) [Mass fraction] 100 % Monika Staley MD SA-Moliylrgyp-Dsr russ [address] [place] Work Phone: Comment on above: Source: 01-20-2020 16:39-0400 Systolic blood pressure 144 mm[Hg] Monika Staley MD MY-Iiqaowqagl-Ldz russ [address] [place] Work Phone: Comment on [...] Start: 03-16-2025 ambulatory Carlos Cavazos [facility] Fac[facility]ity:[facility] Start: 03-13-2025 ambulatory Carlos Quickros OLS Faci [facility]ity:[facility] Start: 03-12-2025 [facility] Start: 03-11-2025 ambulatory Carlos Quickros OLS Faci lity:[facility] Start: 03-09-2025 ambulatory Mahaveer kka flash OLS Facility:[facility] Start: 03-05-2025 [facility] Start: 03-02-2025 ambulatory Peter Katsaros OLS Faci lity:[facility] Start: 02-26-2025 ambulatory Mahaveer kka flash OLS Facility:[facility] Start: 02-23-2025 [facility] Start: 02-19-2025 ambulatory Karon muellera OLS Facility:[facility] Start: 02-16-2025 End: 02-16-2025 ambulatory Karon Farmera OLS Facility:[facility] Start: 02-12-2025 [facility] Start: 02-12-2025 End: 02-12-2025 ambulatory Karon Farmera OLS Facility:[facility] Start: 02-09-2025 Registered Referred Carlos Cavazos - [facility] Start: 02-09-2025 ambulatory Carlos Cavazos OLS Faci lity:[facility] Start: 02-05-2025 [facility] Start: 02-05-2025 End: 02-05-2025 ambulatory Karon Farmera OLS Facility:[facility] Start: 02-02-2025 [facility] Start: 02-02-2025 End: 02-02-2025 ambulatory Karon Farmera OLS Facility:[facility] Start: 01-29-2025 [facility] Start: 01-29-2025 End: 01-29-2025 ambulatory Karon Farmera OLS Facility:[facility] Start: 01-26-2025 [facility] Start: 01-26-2025 End: 01-26-2025 ambulatory Karon Delacruzlla OLS Facility:[facility] Start: 01-22-2025 [facility] Start: 01-22-2025 End: 01-22-2025 ambulatory Carlaavenoe Delacruzlla OLS Facility:[facility] Start: 01-19-2025 Registered Referred Carlos Cavazos - [facility] Start: 01-19-2025 End: 01-19-2025 ambulatory Carlos Cavazos OLS Facility:[facility] Start: 01-15-2025 Registered Referred Karon casillas MD -[facility] Start: 01-15-2025 End: 01-15-2025 ambulatory [facility] OLS Facility:[facility] Start: 01-12-2025 Registered Referred Karon casillas MD -[facility] Start: 01-12-2025 End: 01-12-2025 ambulatory [facility] OLS Facility:[facility] Start: 01-08-2025 Registered Referred Karon casillas MD -[facility] Start: 01-08-2025 End: 01-08-2025 ambulatory [facility] OLS Facility:[facility] Start: 01-06-2025 Registered Referred Karon casillas MD -[facility] Start: 01-06-2025 End: 01-06-2025 ambulatory [facility] OLS Facility:[facility] Start: 01-01-2025 End: 01-01-[address] Monika Staley MD Work Phone: [facility] Start: 01-01-2025 End: 01-01-2025 Departed Referred Karon Corrales MD -[facility] Start: 01-01-2025 Registered Referred Karon casillas MD -[facility] Start: 01-01-2025 End: 01-01-2025 ambulatory [facility] Hearteliscrosbymarlenevanessa OLS Facility:[facility] Start: 12-29-2024 Registered Referred Carlos Cavazos - [facility] Start: 12-29-2024 End: 12-29-2024 ambulatory Carlos Cavazos OLS Facility:[facility] Start: 12-26-2024 End: 12-26-[address] Monika Staley MD Work Phone: -[facility] Start: 12-26-2024 End: 12-26-2024 Departed Referred Karon Corrales MD -[facility] Start: 12-26-2024 Registered Referred Karon casillas MD -[facility] Start: 12-26-2024 End: 12-26-2024 ambulatory Mahaveer Mukkamalla OLS Facility:[facility] Start: 12-25-2024 Registered Referred Karon casillas MD -[facility] Start: 12-24-2024 End: 12-25-2024 ambulatory Mahaveer Mukkamalla OLS Facility:[facility] Start: 12-24-2024 Registered Referred Carlos Lópezsaros - [facility] Start: 12-22-2024 ambulatory [facility] flash OLS Facility:[facility] Start: 12-22-2024 Registered Referred Karon casillas MD -[facility] Start: 12-18-2024 Registered Referred Karon casillas MD -[facility] Start: 12-18-2024 End: 12-18-2024 ambulatory Carlaaveer Princeamalla OLS Facility:[facility] Start: 12-15-2024 [facility] Start: 12-15-2024 Registered Referred Karon casillas MD -[facility] Start: 12-11-2024 Registered Referred Carlos Cavazos - [facility] Start: 12-11-2024 End: 12-11-2024 ambulatory Carlos Maribelkameron OLS Facility:[facility] Start: 12-08-2024 Registered Referred Karon casillas MD -[facility] Start: 12-08-2024 End: 12-08-2024 ambulatory Mahaveer Mukkamalla OLS Facility:[facility] Start: 12-04-2024 Registered Referred Karon casillas MD -[facility] Start: 12-04-2024 End: 12-04-2024 ambulatory Mahaveer kkamalla OLS Facility:[facility] Start: 12-02-2024 [facility] Start: 12-02-2024 Registered Referred Karon casillas MD -[facility] Start: 12-01-2024 ambulatory Carlos NOVAK Faci lity:[facility] Start: 12-01-2024 Registered Referred Carlos Cavazos - [facility] Start: 11-28-2024 Registered Referred Carlos Cavazos - [facility] Start: 11-28-2024 End: 11-28-2024 ambulatory Carlos Cavazos OLS Facility:[facility] Start: 11-27-2024 Registered Referred Karon casillas MD -[facility] Start: 11-27-2024 End: 11-27-2024 ambulatory Karon inga OLS Facility:[facility] Start: 11-24-2024 [facility] Start: 11-24-2024 Registered Referred Karon casillas MD -[facility] Start: 11-20-2024 Registered Referred Karon casillas MD -[facility] Start: 11-20-2024 End: 11-20-2024 ambulatory Karon NOVAK Facility:[facility] Start: 11-17-2024 ambulatory Shiela Luís Facili ty:[facility] Start: 11-17-2024 Registered Referred Karon casillas MD -[facility] Start: 11-13-2024 ambulatory Shiela Luís Facili ty:[facility] Start: 11-13-2024 Registered Referred Karon casillas MD -[facility] Start: 11-10-2024 [facility] Start: 11-10-2024 Registered Referred Karon casillas MD -[facility] Start: 11-06-2024 Registered Referred Karon casillas MD -[facility] Start: 11-06-2024 End: 11-06-2024 ambulatory Karon Corrales OLS Facility:[facility] Start: 11-03-2024 End: 11-03-[address] Monika Staley MD Work Phone: -[facility] Start: 11-03-2024 End: 11-03-2024 Departed Referred Carlos Maribelkameron -[facility] Start: 11-03-2024 Registered Referred Carlos Maribelkameron - [facility] Start: 11-03-2024 End: 11-03-2024 ambulatory Carlos Cavazos OLS Facility:[facility] Start: 10-30-2024 End: 10-30-[address] Monika Staley MD Work Phone: -[facility] Start: 10-30-2024 End: 10-30-2024 Departed Referred Karon Corrales MD -[facility] Start: 10-30-2024 Registered Referred Karon casillas MD -[facility] Start: 10-30-2024 End: 10-30-2024 ambulatory Monika Staley Facility:[facility] Start: 10-27-2024 Registered Referred Karon casillas MD -[facility] Start: 10-27-2024 End: 10-27-2024 ambulatory Karon NOVAK Facility:[facility] Start: 10-23-2024 Registered Referred Karon casillas MD -[facility] Start: 10-23-2024 End: 10-23-2024 ambulatory Monika Staley Facility:[facility] Start: 10-20-2024 End: 10-20-[address] Monika Staley MD Work Phone: -[facility] Start: 10-20-2024 End: 10-20-2024 Departed Referred Karon Corrales MD -[facility] Start: 10-20-2024 Registered Referred Karon casillas MD -[facility] Start: 10-20-2024 End: 10-20-2024 ambulatory Karon Corrales OLS Facility:[facility] Start: 10-16-2024 ambulatory Monika Horner Luís Facili ty:[facility] Start: 10-16-2024 Registered Referred Karon casillas MD -[facility] Start: 10-13-2024 ambulatory Carlos Cavazos OLS Faci lity:[facility] Start: 10-13-2024 Registered Referred Carlos Cavazos - [facility] Start: 10-09-2024 ambulatory Shiela Luís Facili ty:[facility] Start: 10-09-2024 Registered Referred Karon casillas MD -[facility] Start: 10-06-2024 ambulatory Carlos Cavazos OLS Faci lity:[facility] Start: 10-06-2024 Registered Referred Carlos Cavazos - [facility] Start: 10-02-2024 ambulatory Shiela Luís Facili ty:[facility] Start: 10-02-2024 Registered Referred Karon casillas MD -[facility] Start: 09-30-2024 End: 09-30-[address] Monika Staley MD Work Phone: [facility] Work Phone: Start: 09-30-2024 End: 09-30-2024 Departed Referred Karon Corrales MD -[facility] Start: 09-30-2024 Registered Referred Karon casillas MD -[facility] Start: 09-30-2024 End: 09-30-2024 ambulatory Karon NOVAK Facility:[facility] Start: 09-25-2024 ambulatory Karon vidales OLS Facility:[facility] Start: 09-25-2024 Registered [facility] Start: 09-22-2024 End: 09-22-[address] Monika Staley MD Work Phone: -[facility] Start: 09-22-2024 End: 09-22-2024 Departed Referred Karon Corrales MD -[facility] Start: 09-22-2024 Registered Referred Karon casillas MD -[facility] Start: 09-22-2024 End: 09-22-2024 ambulatory Karon NOVAK Facility:[facility] Start: 09-18-2024 End: 09-18-[address] Monika Staley MD Work Phone: -[facility] Start: 09-18-2024 End: 09-18-2024 Departed Referred Karon Corrales MD -[facility] Start: 09-18-2024 Registered Referred Karon casillas MD -[facility] Start: 09-18-2024 End: 09-18-2024 ambulatory Karon Corrales OLS Facility:[facility] Start: 09-15-2024 End: 09-15-[address] Monika Staley MD Work Phone: [facility] Work Phone: Start: 09-15-2024 End: 09-15-2024 Departed Referred Carlos Cavazos -[facility] Start: 09-15-2024 Registered Referred Carlos Cavazos - [facility] Start: 09-15-2024 End: 09-15-2024 ambulatory Carlos Cavazos OLS Facility:[facility] Start: 09-11-2024 ambulatory Karon vidales OLS Facility:[facility] Start: 09-11-2024 Registered Referred Karon casillas MD -[facility] Start: 09-08-2024 End: 09-08-[address] Monika Staley MD Work Phone: [facility] Work Phone: Start: 09-08-2024 End: 09-08-2024 Departed Referred Karon Corrales MD -[facility] Start: 09-08-2024 Registered Referred Karon casillas MD -[facility] Start: 09-08-2024 End: 09-08-2024 ambulatory Karon NOVAK Facility:[facility] Start: 09-04-2024 End: 09-04-2024 Departed Referred Carlos Maribelsaros -[facility] Start: 09-04-2024 Registered Referred Carlos Maribelsaros - [facility] Start: 09-04-2024 End: 09-04-2024 ambulatory Carlos NOVAK Facility:[facility] Start: 09-01-2024 End: 09-01-[address] Monika Staley MD Work Phone: [facility] Work Phone: Start: 09-01-2024 End: 09-01-2024 Departed Referred Carlos Lópezsaros -[facility] Start: 09-01-2024 Registered Referred Carlos Maribelsaros - [facility] Start: 09-01-2024 End: 09-01-2024 ambulatory aCrlos NOVAK Facility:[facility] Start: 08-28-2024 End: 08-28-[address] Monika Staley MD Work Phone: [facility] Work Phone: Start: 08-28-2024 End: 08-28-2024 Departed Referred Carlos L[facility]saros [facility] [employer] Start: 08-28-2024 Registered Referred Carlos L[facility]saros - [facility] Start: 08-28-2024 End: 08-28-2024 ambulatory Carlos NOVAK Facility:[facility] Start: 08-25-2024 End: 08-25-[address] Monika Staley MD Work Phone: [facility] Work Phone: Start: 08-25-2024 End: 08-25-2024 Departed Referred Karon Corrales [facility] Start: 08-25-2024 Registered Referred Karon casillas MD -[facility] Start: 08-25-2024 End: 08-25-2024 ambulatory Carlaamber Corrales OLS Facility:[facility] Start: 08-21-2024 End: 08-21-[address] Monika Staley MD Work Phone: [facility] Work Phone: Start: 08-21-2024 End: 08-21-2024 Departed Referred Karon Corrales [facility] Start: 08-21-2024 Registered Referred Karon casillas MD [facility] Start: 08-21-2024 End: 08-21-2024 ambulatory Carlaamber NVOAK Facility:[facility] Start: 08-18-2024 End: 08-18-[address] Monika Staley MD Work Phone: [facility] Work Phone: Start: 08-18-2024 End: 08-18-2024 Departed Referred Karon Corrales [facility] Start: 08-18-2024 Registered Referred Karon casillas MD [facility] Start: 08-18-2024 End: 08-18-2024 ambulatory Carlaamber Corrales OLS Facility:[facility] Start: 08-14-2024 End: 08-14-[address] Monika Staley MD Work Phone: [facility] Work Phone: Start: 08-14-2024 End: 08-14-2024 Departed Referred Karon Corrales [facility] Start: 08-14-2024 Registered Referred Karon casillas MD [facility] Start: 08-14-2024 End: 08-14-2024 ambulatory Karon NOVAK Facility:[facility] Start: 08-11-2024 End: 08-11-2024 Departed Referred Karon Corrales MD -[facility] Start: 08-11-2024 Registered Referred Karon casillas MD -[facility] Start: 08-11-2024 End: 08-11-2024 ambulatory Karon NOVAK Facility:[facility] Start: 08-07-2024 End: 08-07-2024 Departed Referred Carlos L[facility]saviri [facility] Start: 08-07-2024 Registered Referred Carlos L[facility]saviri - [facility] Start: 08-07-2024 End: 08-07-2024 ambulatory Carlos Cavazos OLS Facility:[facility] Start: 08-04-2024 End: 08-04-[address] Monika Staley MD Work Phone: [facility] Work Phone: Start: 08-04-2024 End: 08-04-2024 Departed Referred Carlos L[facility]epzsaviri [facility] [employer] Start: 08-04-2024 Registered Referred Carlos L[facility]saros [facility] [employer] [facility] Start: 08-04-2024 End: 08-04-2024 ambulatory Carlos NOVAK Facility:[facility] Start: 07-31-2024 End: 07-31-[address] Monika Staley MD Work Phone: [facility] Work Phone: Start: 07-31-2024 End: 07-31-2024 Departed Referred Karon Corrales MD -[facility] Start: 07-31-2024 Registered Referred Karon casillas MD -[facility] Start: 07-31-2024 End: 07-31-2024 ambulatory Karon NOVAK Facility:[facility] Start: 07-28-2024 End: 07-28-[address] Monika Staley MD Work Phone: [facility] Work Phone: Start: 07-28-2024 End: 07-28-2024 Departed Referred Karon Corrales MD [facility] Start: 07-28-2024 Registered Referred Karon casillas MD -[facility] Start: 07-28-2024 End: 07-28-2024 ambulatory Karon NOVAK Facility:[facility] Start: 07-25-2024 End: 07-25-[address] Monika Staley MD Work Phone: [facility] Work Phone: Start: 07-25-2024 End: 07-25-2024 Departed Referred Carlos [facility]azos [facility] Start: 07-25-2024 Registered Referred Carlos Reeder [facility] Start: 07-24-2024 End: 07-25-[address] Monika Staley MD Work Phone: [facility] Work Phone: Start: 07-24-2024 End: 07-24-2024 Departed Referred Karon Corrales MD [facility] Start: 07-24-2024 Registered Referred Karon casillas MD [facility] Start: 07-24-2024 End: 07-24-2024 ambulatory Karon NOVAK Facility:[facility] Start: 07-21-2024 End: 07-21-[address] Monika Staley MD Work Phone: [facility] Work Phone: Start: 07-21-2024 End: 07-21-2024 Departed Referred Karon Corrales MD [facility] Start: 07-21-2024 Registered Referred Karon casillas MD -[facility] Start: 07-21-2024 End: 07-21-2024 ambulatory Karon NOVAK Facility:[facility] Start: 07-17-2024 End: 07-17-[address] Monika Staley MD Work Phone: [facility] Work Phone: Start: 07-17-2024 End: 07-17-2024 Departed Referred Karon Corrales MD -[facility] Start: 07-17-2024 Registered Referred Karon casillas MD -[facility] Start: 07-17-2024 End: 07-17-2024 ambulatory Karon NOVAK Facility:[facility] Start: 07-14-2024 End: 07-14-[address] Monika Staley MD Work Phone: [facility] Work Phone: Start: 07-14-2024 End: 07-14-2024 Departed Referred Carlos Cavazos [facility] Start: 07-14-2024 Registered Referred Carlos L[facility]saros - [facility] Start: 07-14-2024 End: 07-14-2024 ambulatory Carlos Cavazos OLS Facility:[facility] Start: 07-11-2024 End: 07-11-[address] Monika Staley MD Work Phone: [facility] Work Phone: Start: 07-11-2024 End: 07-11-2024 Departed Referred Carlos [facility] [employer] Start: 07-11-2024 Registered Referred Carlos L[facility]saros - [facility] [employer] [facility] Start: 07-11-2024 End: 07-11-2024 ambulatory Carlos Cavazos OLS Facility:[facility] Start: 07-07-2024 End: 07-07-[address] Monika Staley MD Work Phone: [facility] Work Phone: Start: 07-07-2024 End: 07-07-2024 Departed Referred Karon Corrales MD [facility] [employer] [facility] Start: 07-07-2024 [facility] Start: 07-07-2024 End: 07-07-2024 ambulatory Karon NOVAK Facility:[facility] Start: 07-03-2024 End: 07-03-[address] Monika Staley MD Work Phone: [facility] Work Phone: Start: 07-03-2024 End: 07-03-2024 Departed Referred Kvng Crisostomo MD -[facility] Start: 07-03-2024 Registered Referred Kvng Crisostomo MD -[facility] Start: 07-03-2024 End: 07-03-2024 ambulatory Kvng NOVAK Facility:[facility] Start: 06-30-2024 End: 06-30-[address] Monika Staley MD Work Phone: [facility] Work Phone: Start: 06-30-2024 End: 06-30-2024 Departed Referred Kvng Crisostomo MD -[facility] [employer] [facility] Start: 06-30-2024 Registered Referred Kvng Crisostomo MD -[facility] Start: 06-30-2024 End: 06-30-2024 ambulatory Kvng NOVAK Facility:[facility] Start: 06-26-2024 ambulatory Kvng NOVAK Fac ility:[facility] Start: 06-26-2024 Registered Referred Kvng Crisostomo MD [facility] Start: 06-23-2024 End: 06-23-[address] Monika Staley MD Work Phone: [facility] Work Phone: Start: 06-23-2024 End: 06-23-2024 Departed Referred [facility] Start: 06-23-2024 Registered Referred Carlos Cavazos - [facility] [employer] [facility] Start: 06-23-2024 End: 06-23-2024 ambulatory Carlos NOVAK Facility:[facility] Start: 06-19-2024 End: 06-19-[address] Monika Staley MD Work Phone: [facility] Work Phone: Start: 06-19-2024 End: 06-19-2024 Departed Referred Kvng Crisostomo MD [facility] Start: 06-19-2024 Registered Referred Kvng Crisostomo MD [facility] Start: 06-19-2024 End: 06-19-2024 ambulatory Monika Staley Facility:[facility] Start: 06-16-2024 End: 06-16-[address] Monika Staley MD Work Phone: [facility] Work Phone: Start: 06-16-2024 End: 06-16-2024 Departed Referred Kvng Crisostomo MD [facility] Start: 06-16-2024 Registered Referred Kvng Crisostomo MD [facility] Start: 06-16-2024 End: 06-16-2024 ambulatory Monika Staley Facility:[facility] Start: 06-12-2024 End: 06-12-[address] Monika Staley MD Work Phone: [facility] Work Phone: Start: 06-12-2024 End: 06-12-2024 Departed Referred Kvng Crisostomo MD [facility] Start: 06-12-2024 Registered Referred Kvng Crisostomo MD [facility] Start: 06-12-2024 End: 06-12-2024 ambulatory Kvng NOVAK Facility:[facility] Start: 06-09-2024 End: 06-09-[address] Monika Staley MD Work Phone: [facility] Work Phone: Start: 06-09-2024 End: 06-09-2024 Departed Referred Carlos [facility]azos [facility] [employer] Start: 06-09-2024 Registered Referred Carlos [facility]azos - [facility] Start: 06-09-2024 End: 06-09-2024 ambulatory Monika Staley Facility:[facility] Start: 06-05-2024 End: 06-05-[address] Monika Staley MD Work Phone: [facility] Work Phone: Start: 06-05-2024 End: 06-05-2024 Departed Referred Kvng Crisostomo MD [facility] Start: 06-05-2024 End: 06-05-2024 ambulatory Kvng NOVAK Facility:[facility] Start: 06-02-2024 End: 06-02-[address] Monika Staley MD Work Phone: [facility] Work Phone: Start: 06-02-2024 End: 06-02-2024 Departed Referred Kvng Crisostomo MD [facility] Start: 06-02-2024 Registered Referred Kvng Crisostomo MD [facility] Start: 06-02-2024 End: 06-02-2024 ambulatory Kvng NOVAK Facility:[facility] Start: 05-29-2024 End: 05-29-[address] Monika Staley MD Work Phone: [facility] Work Phone: Start: 05-29-2024 End: 05-29-2024 Departed Referred Kvng Crisostomo MD [facility] Start: 05-29-2024 Registered Referred Kvng Crisostomo MD [facility] Start: 05-29-2024 End: 05-29-2024 ambulatory Kvng NOVAK Facility:[facility] Start: 05-26-2024 End: 05-26-[address] Monika Staley MD Work Phone: [facility] Work Phone: Start: 05-26-2024 End: 05-26-2024 Departed Referred Carlos Cavazos [facility] Start: 05-26-2024 Registered Referred Carlos Cavazos - [facility] Start: 05-26-2024 End: 05-26-2024 ambulatory Carlos NOVAK Facility:[facility] Start: 05-22-2024 ambulatory Kvng NOVAK Fac ility:[facility] Start: 05-22-2024 Registered [facility] Start: 05-20-2024 End: 05-20-2024 Departed Ref[facility] Start: 05-19-2024 End: 05-20-2024 ambulatory Kvng NOVAK Facility:[facility] Start: 05-19-2024 Registered [facility] Start: 05-15-2024 End: 05-15-2024 Departed Ref[facility] Start: 05-15-2024 End: 05-15-2024 ambulatory Kvng NOVAK Facility:[facility] Start: 05-12-2024 End: 05-12-2024 [facility]ed [facility] Start: 05-12-2024 End: 05-12-2024 ambulatory aCrlos NOVAK Facility:[facility] Start: 05-09-2024 End: 05-09-2024 [facility]ed [facility] Start: 05-09-2024 End: 05-09-2024 ambulatory Kvng NOVAK Facility:[facility] Start: 05-08-2024 End: 05-08-2024 Departed Referred Babbaljeet Crisostomo MD -[facility] Start: 05-08-2024 End: 05-08-2024 ambulatory Elizabethmilton Andressa NOVAK Facility:[facility] Start: 05-05-2024 End: 05-05-2024 Departed Referred Kvng Crisostomo MD -[facility] Start: 05-05-2024 End: 05-05-2024 ambulatory Kvng NOVAK Facility:[facility] Start: 05-01-2024 End: 05-01-2024 Departed Referred Kvng Crisostoom MD -[facility] Start: 05-01-2024 End: 05-01-2024 ambulatory Kvng NOVAK Facility:[facility] Start: 04-28-2024 End: 04-28-2024 Departed Referred Carlos Cavazos [facility] Start: 04-28-2024 End: 04-28-2024 ambulatory Carlos NOVAK Facility:[facility] Start: 04-24-2024 End: 04-24-2024 Departed Referred Kvng Crisostomo MD -[facility] Start: 04-24-2024 End: 04-24-2024 ambulatory Vicentesigifredokarolmilton Andressa NOVAK Facility:[facility] Start: 04-21-2024 End: 04-21-2024 Departed Referred Carlos Cavazos [facility] Start: 04-21-2024 End: 04-21-2024 ambulatory Carlos NOVAK Facility:[facility] Start: 04-17-2024 ambulatory Vicenterocio Andressa NOVAK Fac ility:[facility] Start: 04-17-2024 Registered Referred Kvng Crisostomo MD -[facility] Start: 04-14-2024 ambulatory Vicenterocio Andressa NOVAK Fac ility:[facility] Start: 04-14-2024 Registered Referred Kvng Crisostomo MD -[facility] Start: 04-10-2024 End: 04-10-2024 Departed Referred Kvng Crisostomo MD [facility] Start: 04-10-2024 End: 04-10-2024 ambulatory Kvng Jonesur OLS Facility:[facility] Start: 04-07-2024 End: 04-07-2024 Departed Referred Carlos Cavazos [facility] Start: 04-07-2024 End: 04-07-2024 ambulatory Carlos NOVAK Facility:[facility] Start: 04-04-2024 ambulatory Avisgerson Andressa NOVAK Fac ility:[facility] Start: 04-04-2024 Registered Referred Kvng Crisostomo MD -[facility] Start: 03-31-2024 End: 03-31-2024 Departed Referred Carlos Cavazos [facility] Start: 03-31-2024 End: 03-31-2024 ambulatory Carlos NOVAK Facility:[facility] Start: 03-27-2024 End: 03-27-2024 Departed Referred [facility] Start: 03-27-2024 End: 03-27-2024 ambulatory [facility] Facility:[facility] Start: 03-24-2024 End: 03-24-2024 Departed Referred Kvng Crisostomo MD [facility] Start: 03-24-2024 End: 03-24-2024 ambulatory Kvng NOVAK Facility:[facility] Start: 03-20-2024 End: 03-20-2024 Departed Referred [facility] Start: 03-20-2024 End: 03-20-2024 ambulatory [facility] Facility[facility] Start: 03-19-2024 End: 03-19-2024 Departed Referred Kvng Crisostomo MD [facility] Start: 03-19-2024 End: 03-19-2024 ambulatory Kvng NOVAK Facility:[facility] Start: 03-18-2024 End: 03-18-2024 Departed Referred [facility] Start: 03-17-2024 End: 03-17-2024 Departed Referred [facility] Start: 03-14-2024 End: 03-14-2024 Departed Referred Carlos Cavazos [facility] Start: 03-13-2024 End: 03-13-2024 Departed Referred [facility] Start: 09-13-2023 End: 09-13-2023 ambulatory [facility] Start: 09-13-2023 End: 09-13-2023 Office outpatient visit 25 minutes Rebecca Buck MD Work Phone: [facility] Comment on above: Left flank pain (Christina magui Dx); BPH with urinary obstruction; History of kidney stones Start: 09-06-2023 End: 09-07-2023 ambulatory [facility] Start: 09-06-2023 End: 09-06-2023 Subsequent hospital visit by physician Rebecca Buck MD Work Phone: [facility] CT Imaging Comment on above: Left flank pain; Calculus of ureter Start: 08-31-2023 ambulatory [facility] Start: 08-31-2023 Patient encounter procedure [facility] Start: 08-21-2023 Telephone encounter Rebecca Buck MD Work Phone: [facility] Clinical Communication Comment on above: CT appt Boaz advice Start: 08-21-2023 Registered Referred [facility] Start: 08-13-2023 End: 08-13-2023 ambulatory [facility] Start: 08-13-2023 End: 08-13-2023 Office outpatient new 45 minutes Rebecca Buck MD Work Phone: [facility] Comment on above: Left flank pain (Christina magui Dx); Calculus of ureter; Disease of prostate; BPH with urinary obstruction Start: 08-03-2023 End: 08-03-2023 ambulatory [facility] Work Phone: Start: 08-03-2023 End: 08-03-2023 Departed Referred [facility] Start: 07-20-2023 End: 07-20-2023 ambulatory [facility] Work Phone: Start: 07-20-2023 End: 07-20-2023 Departed Referred [facility] Start: 07-20-2023 Registered Referred [facility] Start: 07-18-2023 End: 07-18-2023 ambulatory [facility] Work Phone: Start: 07-18-2023 End: 07-18-2023 [facility] Start: 07-18-2023 [facility] Start: 07-16-2023 End: 07-16-2023 ambulatory [facility] Work Phone: Start: 07-16-2023 End: 07-16-2023 [facility] Start: 07-16-2023 Registered Referred [facility] Start: 07-13-2023 End: 07-13-2023 ambulatory [facility] Work Phone: Start: 07-13-2023 End: 07-13-2023 [facility] Start: 07-13-2023 Registered Referred [facility] Start: 07-12-2023 End: 07-12-2023 ambulatory [facility] Work Phone: Start: 07-12-2023 End: 07-12-2023 [facility] Start: 07-12-2023 Registered Referred [facility] Start: 07-05-2023 End: 07-05-2023 ambulatory [facility] Work Phone: Start: 07-05-2023 End: 07-05-2023 [facility] Start: 07-05-2023 [facility] Start: 07-02-2023 [facility] Start: 06-28-2023 End: 06-28-2023 ambulatory [facility] Work Phone: Start: 06-28-2023 End: 06-28-2023 [facility] Start: 06-28-2023 [facility] Start: 06-25-2023 Telephone encounter Rebecca Buck MD Work Phone: [facility] Start: 06-25-2023 End: 06-25-2023 ambulatory [facility] Work Phone: Start: 06-25-2023 End: 06-25-2023 [facility] Start: 06-25-2023 [facility] Start: 06-21-2023 End: 06-21-2023 ambulatory [facility] Work Phone: Start: 06-21-2023 End: 06-21-2023 [facility] Start: 06-21-2023 [facility] Start: 06-13-2023 End: 06-13-2023 ambulatory [facility] Work Phone: Start: 06-13-2023 End: 06-13-2023 [facility] Start: 06-06-2023 End: 06-06-2023 ambulatory [facility] Work Phone: Start: 06-06-2023 End: 06-06-2023 [facility] Start: 06-06-2023 [facility] Start: 05-23-2023 End: 05-23-2023 ambulatory [facility] Work Phone: Start: 05-23-2023 End: 05-23-2023 [facility] Start: 05-09-2023 End: 05-09-2023 [facility] Start: 05-09-2023 [facility] Start: 04-23-2023 End: 04-23-2023 [facility] Start: 04-09-2023 End: 04-09-2023 ambulatory [facility] Work Phone: Start: 04-09-2023 End: 04-09-2023 [facility] Start: 04-09-2023 [facility] Start: 04-02-2023 End: 04-02-2023 ambulatory [facility] Work Phone: Start: 04-02-2023 End: 04-02-2023 [facility] Start: 04-02-2023 [facility] Start: 03-26-2023 End: 03-26-2023 ambulatory [facility] Work Phone: Start: 03-26-2023 End: 03-26-2023 [facility] Start: 03-26-2023 [facility] Start: 03-22-2023 End: 03-22-2023 ambulatory [facility] Work Phone: Start: 03-22-2023 End: 03-22-2023 [facility] Start: 03-22-2023 [facility] Start: 03-08-2023 End: 03-08-2023 ambulatory [facility] Work Phone: Start: 03-08-2023 End: 03-08-2023 Departed Referred [facility] Start: 02-22-2023 End: 02-22-2023 ambulatory [facility] Work Phone: Start: 02-22-2023 End: 02-22-2023 Departed Referred [facility] Start: 02-22-2023 Registered Referred [facility] Start: 02-15-2023 End: 02-15-2023 ambulatory [facility] Work Phone: Start: 02-15-2023 End: 02-15-2023 Departed [facility] Start: 02-15-2023 Registered Referred [facility] Start: 02-08-2023 End: 02-08-2023 ambulatory [facility] Work Phone: Start: 02-08-2023 End: 02-08-2023 Departed [facility] Start: 01-31-2023 End: 01-31-2023 ambulatory [facility] Work Phone: Start: 01-31-2023 End: 01-31-2023 Departed [facility] Start: 01-31-2023 Registered Referred [facility] Start: 01-29-2023 End: 01-29-2023 Departed Referred [facility] Start: 01-29-2023 Registered Referred [facility] Start: 01-26-2023 End: 01-26-2023 Departed Referred [facility] Start: 01-26-2023 Registered Referred [facility] Start: 01-24-2023 End: 01-24-2023 Departed Referred [facility] Start: 01-24-2023 Registered Referred [facility] Start: 01-22-2023 End: 01-22-2023 ambulatory [facility] Work Phone: Start: 01-22-2023 End: 01-22-2023 [facility] Start: 01-22-2023 [facility] Start: 01-10-2023 End: 01-10-2023 ambulatory [facility] Work Phone: Start: 01-10-2023 End: 01-10-2023 [facility] Start: 01-10-2023 [facility] Start: 12-27-2022 End: 12-27-2022 ambulatory [facility] Work Phone: Start: 12-27-2022 End: 12-27-2022 [facility] Start: 12-27-2022 [facility] Start: 12-21-2022 End: 12-21-2022 ambulatory [facility] Work Phone: Start: 12-21-2022 End: 12-21-2022 [facility] Start: 12-21-2022 [facility] Start: 12-14-2022 End: 12-14-2022 ambulatory [facility] Work Phone: Start: 12-14-2022 End: 12-14-2022 [facility] Start: 12-14-2022 [facility] Start: 12-07-2022 End: 12-07-2022 ambulatory [facility] Work Phone: Start: 12-07-2022 End: 12-07-2022 [facility] Start: 12-07-2022 [facility] Start: 11-24-2022 End: 11-24-2022 ambulatory [facility] Work Phone: Start: 11-24-2022 End: 11-24-2022 Departed [facility] Start: 11-24-2022 [facility] Start: 11-23-2022 End: 11-23-2022 ambulatory [facility] Work Phone: Start: 11-23-2022 End: 11-23-2022 [facility] Start: 11-23-2022 [facility] Start: 11-22-2022 End: 11-22-2022 ambulatory [facility] Work Phone: Start: 11-22-2022 End: 11-22-2022 [facility]arted [facility]erred [facility] [facility] Start: 11-22-2022 [facility] Start: 11-09-2022 End: 11-09-2022 ambulatory [facility] Work Phone: Start: 11-09-2022 End: 11-09-2022 [facility]ed [facility] Start: 11-09-2022 [facility] Start: 10-26-2022 End: 10-26-2022 Departed Referred [facility] Start: 10-26-2022 [facility] Start: 10-12-2022 End: 10-12-2022 ambulatory [facility] Work Phone: Start: 10-12-2022 End: 10-12-2022 Departed Referred [facility] Start: 10-12-2022 [facility] Start: 10-05-2022 End: 10-05-2022 [facility] Start: 10-05-2022 Registered Referred [facility] Start: 09-28-2022 End: 09-28-2022 ambulatory [facility] Work Phone: Start: 09-28-2022 End: 09-28-2022 [facility] Start: 09-14-2022 End: 09-14-2022 [facility] Start: 08-31-2022 End: 08-31-2022 [facility]ed [facility] Start: 08-31-2022 [facility] Start: 08-23-2022 End: 08-23-2022 ambulatory [facility] Work Phone: Start: 08-23-2022 End: 08-23-2022 [facility] Start: 08-23-2022 [facility] Start: 08-17-2022 End: 08-17-2022 ambulatory [facility] Work Phone: Start: 08-17-2022 End: 08-17-2022 [facility] Start: 08-17-2022 Registered Referred [facility] Start: 08-14-2022 End: 08-14-2022 ambulatory [facility] Work Phone: Start: 08-14-2022 End: 08-14-2022 [facility]ed [facility] Start: 08-14-2022 [facility] Start: 07-31-2022 End: 07-31-2022 ambulatory [facility] Work Phone: Start: 07-31-2022 End: 07-31-2022 [facility]ed [facility] Start: 07-31-2022 Registered Referred [facility] Start: 07-24-2022 End: 07-24-2022 ambulatory [facility] Work Phone: Start: 07-24-2022 End: 07-24-2022 [facility]ed [facility] Start: 07-24-2022 Registered Referred [facility] Start: 07-20-2022 End: 07-20-2022 [facility] Start: 07-20-2022 [facility] Start: 07-17-2022 End: 07-17-2022 Dep[facility] Start: 07-17-2022 Registered Referred [facility] Start: 07-11-2022 Registered Referred [facility] Start: 07-10-2022 End: 07-10-2022 ambulatory [facility] Work Phone: Start: 07-10-2022 End: 07-10-2022 [facility]ed [facility] Start: 07-10-2022 Registered Referred [facility] Start: 07-03-2022 End: 07-03-2022 ambulatory [facility] Work Phone: Start: 07-03-2022 End: 07-03-2022 [facility] Start: 07-03-2022 [facility] Start: 06-27-2022 End: 06-27-2022 ambulatory [facility] Work Phone: Start: 06-27-2022 End: 06-27-2022 [facility] Start: 06-27-2022 [facility] Start: 06-13-2022 End: 06-13-2022 ambulatory [facility] Work Phone: Start: 06-13-2022 End: 06-13-2022 [facility] Start: 06-13-2022 [facility] Start: 06-06-2022 End: 06-06-2022 ambulatory [facility] Work Phone: Start: 06-06-2022 End: 06-06-2022 [facility] Start: 06-06-2022 [facility] Start: 05-30-2022 End: 05-30-2022 ambulatory [facility] Work Phone: Start: 05-30-2022 End: 05-30-2022 [facility] Start: 05-30-2022 [facility] Start: 05-16-2022 End: 05-16-2022 ambulatory [facility] Work Phone: Start: 05-16-2022 End: 05-16-2022 [facility] Start: 05-16-2022 [facility] Start: 05-02-2022 End: 05-02-2022 ambulatory [facility] Work Phone: Start: 05-02-2022 End: 05-02-2022 [facility] Start: 05-02-2022 [facility] Start: 04-27-2022 End: 04-27-2022 ambulatory [facility] Work Phone: Start: 04-27-2022 End: 04-27-2022 Departed Referred [facility] Start: 04-27-2022 Registered Referred [facility] Start: 04-26-2022 End: 04-26-2022 ambulatory [facility] Work Phone: Start: 04-26-2022 End: 04-26-2022 [facility] Start: 04-11-2022 End: 04-11-2022 ambulatory [facility] Work Phone: Start: 04-11-2022 End: 04-11-2022 [facility] Start: 03-28-2022 End: 03-28-2022 [facility] Start: 03-28-2022 Registered Referred [facility] Start: 03-23-2022 End: 03-23-2022 [facility] Start: 03-23-2022 Registered Referred [facility] Start: 03-16-2022 End: 03-16-2022 ambulatory [facility] Work Phone: Start: 03-16-2022 End: 03-16-2022 [facility]ed [facility] Start: 03-16-2022 Registered Referred [facility] Start: 03-09-2022 End: 03-09-2022 ambulatory [facility] Work Phone: Start: 03-09-2022 End: 03-09-2022 [facility] Start: 03-09-2022 Registered Referred [facility] Start: 03-06-2022 End: 03-06-2022 ambulatory [facility] Work Phone: Start: 03-06-2022 End: 03-06-2022 [facility] Start: 03-06-2022 [facility] Start: 03-02-2022 End: 03-03-2022 Emergency department patient visit UNKNOWN PROVIDER [facility] Start: 03-02-2022 End: 03-02-2022 Emergency department patient visit Lanette Munguia DO Work Phone: [facility] Emergency Dept Comment on above: Fall, initial encoun ter (Primary Dx); Anticoagulated Start: 02-20-2022 End: 02-20-2022 Departed Referred [facility] Start: 02-20-2022 Registered Referred [facility] Start: 02-13-2022 End: 02-13-2022 ambulatory [facility] Work Phone: Start: 02-13-2022 End: 02-13-2022 Departed Referred [facility] Start: 02-13-2022 [facility] Start: 02-06-2022 End: 02-06-2022 ambulatory [facility] Work Phone: Start: 02-06-2022 End: 02-06-2022 [facility] Start: 02-06-2022 [facility] Start: 01-30-2022 End: 01-30-2022 [facility] Start: 01-30-2022 [facility] Start: 01-26-2022 End: 01-26-2022 ambulatory [facility] Work Phone: Start: 01-26-2022 End: 01-26-2022 [facility] Start: 01-26-2022 Registered [facility] Start: 01-19-2022 End: 01-19-2022 ambulatory [facility] Work Phone: Start: 01-19-2022 End: 01-19-2022 [facility] Start: 01-19-2022 [facility] Start: 01-17-2022 ambulatory [facility] Start: 01-10-2022 [facility] Start: 01-10-2022 End: 01-10-2022 ambulatory [facility] Work Phone: Start: 01-10-2022 End: 01-10-2022 [facility] Start: 01-10-2022 [facility] Start: 01-06-2022 AUDIT Monika Elias rt Work Phone: [facility] Work Phone: Start: 01-05-2022 End: 01-05-2022 [facility] Start: 01-05-2022 [facility] Start: 12-30-2021 End: 12-30-2021 Dep[facility]ed [facility] Start: 12-30-2021 [facility] Start: 12-28-2021 End: 12-28-2021 ambulatory [facility] Work Phone: Start: 12-28-2021 End: 12-28-2021 [facility] Start: 12-28-2021 [facility] Start: 12-26-2021 End: 12-26-2021 ambulatory [facility] Work Phone: Start: 12-26-2021 End: 12-26-2021 [facility] Start: 12-26-2021 Registered Referred [facility] Start: 12-22-2021 End: 12-22-2021 ambulatory [facility] Work Phone: Start: 12-22-2021 End: 12-22-2021 Departed Referred [facility] Start: 12-22-2021 Registered Referred [facility] Start: 12-22-2021 End: 12-22-2021 [facility] Start: 12-21-2021 End: 12-22-2021 Emergency department patient visit Sharon Olivia MD Work Phone: [facility] Emergency Dept Comment on above: Heel ulceration, lef t, with unspecified severity (HCC) (Primary Dx) Start: 12-19-2021 End: 12-19-2021 ambulatory [facility] Work Phone: Start: 12-19-2021 End: 12-19-2021 Departed Referred [facility] Start: 12-19-2021 Registered Referred [facility] Start: 12-12-2021 End: 12-12-2021 ambulatory [facility] Work Phone: Start: 12-12-2021 End: 12-12-2021 Departed Referred [facility] Start: 12-12-2021 Registered Referred [facility] Start: 12-08-2021 End: 12-08-2021 ambulatory [facility] Work Phone: Start: 12-08-2021 End: 12-08-2021 Departed Referred [facility] Start: 12-08-2021 Registered Referred [facility] Start: 12-05-2021 End: 12-05-2021 ambulatory [facility] Work Phone: Start: 12-05-2021 End: 12-05-2021 [facility] Start: 12-05-2021 [facility] Start: 12-01-2021 End: 12-01-2021 [facility] Start: 12-01-2021 [facility] Start: 11-28-2021 End: 11-28-2021 [facility] Start: 11-28-2021 [facility] Start: 11-25-2021 Rx Renewal Monika Elias rt Work Phone: [id number] Work Phone: Start: 11-23-2021 End: 11-23-2021 [facility] Start: 11-23-2021 [facility] Start: 11-22-2021 End: 11-22-2021 [facility] Start: 11-22-2021 [facility] Start: 11-21-2021 End: 11-21-2021 [facility] Start: 11-15-2021 AUDIT Monika Elias rt Work Phone: [id number] Work Phone: Start: 11-14-2021 End: 11-14-2021 [facility] Start: 11-14-2021 [facility] Start: 11-08-2021 End: 11-08-2021 [facility] Start: 11-08-2021 [facility] Start: 11-04-2021 End: 11-04-2021 Departed Referred [facility] Start: 11-04-2021 Registered Referred [facility] Start: 10-31-2021 End: 11-01-2021 Emergency department patient visit UNKNOWN PROVIDER [facility] Start: 10-31-2021 End: 11-01-2021 Emergency department patient visit Dante Kim MD Work Phone: [facility] Emergency Dept Comment on above: Other fatigue (Prima ry Dx) Start: 10-31-2021 End: 10-31-2021 Departed Referred [facility] Start: 10-21-2021 End: 10-29-2021 Evaluation and management of inpatient UNKNOWN PROVIDER [facility] Start: 10-21-2021 End: 10-29-2021 Evaluation and management of inpatient Lisa Michelle DO Work Phone: [facility] Comment on above: Leg swelling (Primar y Dx); Acute deep vein thrombosis (DVT) of proximal vein of lower extremity, unspecified laterality (HCC) Start: 10-20-2021 End: 10-20-2021 Departed Referred [facility] Start: 10-17-2021 Telephone encounter Nicole davis MD Work Phone: [facility] Comment on above: Missed Appointment Start: 09-19-2021 End: 09-19-2021 Departed Referred [facility] Start: 11-02-2020 AUDIT Monika Elias rt Work Phone: [facility] Work Phone: Start: 10-27-2020 AUDIT Monika Elias rt Work Phone: [facility] Work Phone: Start: 07-13-2020 Patient encounter procedure Monika Staley [facility] Work Phone: Start: 04-13-2020 Patient encounter procedure Wing Ritter [facility] Work Phone: Start: 04-07-2020 Patient encounter procedure Wing Ritter [facility] Work Phone: Start: 03-18-2020 Patient encounter procedure Wing Ritter [facility] Work Phone: Start: 01-20-2020 Patient encounter procedure Monika Staley MD [id number] Work Phone: Start: 11-13-2019 End: 11-13-2019 Subsequent hospital visit by physician [facility] Comment on above: Non-pressure chronic ulcer left lower leg, 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] Start: 11-06-2019 Patient encounter procedure Monika Staley MD [id number] Work Phone: Start: 06-18-2019 End: 06-18-2019 Subsequent [...] Start: 10-26-2021 Electroencephalogram w/rec awake&asleep Sarina Pineda AIRCRAFT ENGINE TECHNICIAN - GENERAL INSPECTOR Work Phone: Start: 10-26-2021 Ct head/brain w/o co ntrast material Sarina Pineda AIRCRAFT ENGINE TECHNICIAN - GENERAL INSPECTOR Work Phone: Start: 10-26-2021 Prothrombin time Andres Sheridan MD Work Phone: Start: 10-25-2021 Speech and language therapy regime Sarina Pineda AIRCRAFT ENGINE TECHNICIAN - GENERAL INSPECTOR Work Phone: Start: 10-25-2021 Prothrombin time Andres [...] count reticulo cyte automated Ellen Massey Niesha AIRCRAFT ENGINE TECHNICIAN - GENERAL INSPECTOR Work Phone: Start: 10-21-2021 C-reactive protein Jax Scherer AIRCRAFT ENGINE TECHNICIAN - GENERAL INSPECTOR Work Phone: Start: 10-21-2021 Non-invas physiologi c std extremity art 2 level Shruthi Malik AIRCRAFT ENGINE TECHNICIAN - GENERAL INSPECTOR Work Phone: Start: 10-21-2021 Radex calcaneus mini mum 2 views Shruthi Malik AIRCRAFT ENGINE TECHNICIAN - GENERAL INSPECTOR Work Phone: Start: 10-21-2021 Dup-scan xtr veins c omplete bilateral study May Csah MD Start: 10-21-2021 Chest x-ray 1 view frontal May Cash MD Start: 10-21-2021 Pulmonary ventilatio n & perfusion imaging May Cash MD Start: 10-21-2021 Fibrin dgradj produc ts d-dimer quantitative May Cash MD Start: 10-21-2021 End: 10-21-2021 Basic metabolic panel calcium total Lisa Michelle DO Work Phone: Start: 08-09-2021 Antibody screen Comment on above: Order Comment: Speci men Type: BLOOD SPECIMENOrdering Facility: [facility] Address: [address] [place] [address] Performed By: #### T SCR ####[facility] [id number] [address] Start: 08-04-2021 Antibody screen Comment on above: Order Comment: Speci men Type: BLOOD SPECIMENOrdering Facility: [facility] Address: [address] [place] [address] Performed By: #### T SCR ####[facility] [id number] [address] Start: 08-01-2021 Antibody screen Comment on above: Order Comment: Speci men Type: BLOOD SPECIMENOrdering Facility: [facility] Address: [facility] [place] [address] Performed By: #### T SCR ####[facility]ANKCL[facility] [id number] [place] [address] [facility] Start: 06-07-2021 Antibody screen Comment on above: Order Comment: Speci men Type: BLOOD SPECIMEN Performed By: #### T SCR ####[facility] BLO[facility]ANKCL[facility] [id number] [place] [address] [facility] Start: 09-02-2020 Lipid 1996 panel - S bradly or Plasma Rebecca Buck MD Work Phone: Start: 04-07-2020 Echocardiography Wing Ritter Start: 11-13-2019 Radiologic examinati on tibia & fibula 2 views 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 (Kim) Debbie Work Phone: Hernia repair Monika melvin History of Cholecystotomy An yvette Staley History of Creation Of Subdural-Peritoneal CSF Shunt Monika Staley History of Interrupt ion Inferior Vena Cava Baker Filter Placement Monika Staley Urine culture Plan [...] DTaP/Tdap/Td Vaccines (2 - Td or Tdap) [facility] Start: 09-02-2025 Lipid panel Lipid Panel [facility] Start: 03-02-2025 Registered Referred [facility] Start: 02-26-2025 Registered Referred Registered [facility] Start: 02-23-2025 Registered Referred Registered [facility] Start: 02-19-2025 Registered Referred Registered [facility] Start: 02-16-2025 Registered Referred Registered [facility] Start: 08-22-2024 DIABETES SCREEN DIABETES SCREEN [facility] Start: 12-04-2023 Lipid panel Lipids [facility] Start: 12-04-2023 Lipid screen Lipid screen [facility] Work Phone: Start: 09-13-2023 End: 09-13-2023 Patient encounter procedure 09/13/2023 11:30 AM EDT Office Visit [facility] [address] [place] [id number] Rebecca Buck MD [address] [facility] [address] [facility] [address] [place], [place] [id number] [facility] Start: 08-31-2023 End: 08-31-2023 Patient encounter procedure 08/31/2023 9:[address] [facility] [address] [place] [id number] Rebecca Buck MD [address] [facility] [address] [place] [address] [facility] Imaging Start: 08-13-2023 End: 08-12-2024 Basic metabolic 1998 panel - Serum or Plasma Basic metabolic panel Lab Routine Calculus of ureter Expected: 08/13/2023 (Approximate), Expires: 08/12/2024 [facility] Comment on above: Expected: 08/13/2023 (Approximate), Expires: 08/12/2024 Start: 08-13-2023 End: 08-12-2024 CT Abdomen WO contrast CT abdomen pelvis wo IV contrast Imaging Routine Left flank pain Calculus of ureter Expected: 08/13/2023, Expires: 08/12/2024 [facility] Comment on above: Expected: 08/13/2023 , Expires: 08/12/2024 Start: 08-13-2023 End: 02-12-2024 PSA, Monitoring ([facility]) PSA, Monitoring ([facility]) Lab Routine Disease of prostate Expected: 08/13/2023 (Approximate), Expires: 02/12/2024 [facility] Work Phone: Comment on above: Expected: 08/13/2023 (Approximate), Expires: 02/12/2024 Start: 08-13-2023 End: 08-13-2023 Patient encounter procedure 08/13/2023 10:00 AM EDT Office Visit [facility] [address] [place] [phone] Rebecca Buck MD [address] [place] [address] [facility] Start: 07-17-2023 Bacteria identified in Urine by Culture [facility] Start: 07-17-2023 [facility] Start: 07-16-2023 Measurement of substance [facility] Start: 05-07-2023 Medicare Advantage A nnual Wellness Visit Medicare Advantage Annual Wellness Visit [facility] Start: 03-02-2023 Creatinine measurement Creatinine Le carmela [facility] Start: 03-02-2023 Potassium measurement Potassium Leve l [facility] Start: 08-22-2022 Diabetes mellitus screening Diabetes Screening [facility] Start: 01-05-2022 Influenza vaccination S [facility] Start: 12-23-2021 EPV, Provider: Wing Ritter, Status: Pen, Time: 9:30 AM EPV, Provider: Wing Ritter, Status: Pen, Time: 9:30 AM WB-[id number]-Jhw ma Work Phone: Start: 12-05-2021 Influenza vaccination Flu vaccine (# 1) [facility] Start: 12-05-2021 Blood chemistry [facility] Work Phone: Start: 12-05-2021 Complete blood count [facility] Work Phone: Start: 12-05-2021 [facility] Work Phone: Start: 12-01-2021 [facility] Work Phone: Start: 08-05-2021 COVID-19 VACCINE (4 - Booster for Moderna series) COVID-19 VACCINE (4 - Booster for Moderna series) [facility] Start: 08-05-2021 COVID-19 Vaccine (4 - Booster for Pfizer series) COVID-19 Vaccine (4 - Booster for Pfizer series) [facility] Start: 06-01-2021 COVID-19 Vaccine (4 - Booster for Pfizer series) COVID-19 Vaccine (4 - Booster for Pfizer series) [facility] Start: 05-07-2021 ADVANCE DIRECTIVE DISCUSSION ADVANCE DIRECTIVE DISCUSSION [facility] Start: 08-11-2020 Screening for malign ant neoplasm of colon [facility] Start: 07-30-2020 Screening for malign ant neoplasm of colon [facility] Start: 01-20-2020 Echocardiography Echocardiogram MP-C [facility]di[facility] [address] [place] Work Phone: Start: 01-06-2020 Influenza vaccination INFLUENZA (#1) [facility] Start: 12-04-2019 Annual Wellness Visi t (AWV) Annual Wellness Visit (AWV) [facility] Start: 12-04-2019 Creatinine monitoring Creatinine mon itoring [facility] Work Phone: Start: 12-04-2019 Hepatitis C screen [...] 08-14-2017 LIPID SCREEN LIPID SCREEN [facility] Start: 2017 ADVANCE DIRECTIVE DISCUSSION ADVANCE DIRECTIVE DISCUSSION [facility] Start: 2017 PNEUMOCOCCAL: 65+ (1 - PCV) PNEUMOCOCCAL: 65+ (1 - PCV) [facility] Start: 2017 PNEUMOVAX AGE 65 AND OVER WITH 5YR LOOKBACK (#1) PNEUMOVAX AGE 65 AND OVER WITH 5YR LOOKBACK (#1) [facility] Start: 04-14-2016 DIABETES SCREEN DIABETES SCREEN [facility] Start: 2012 RSV Immunization age d 60 or older (1 - 1-dose 60+ series) RSV Immunization aged 60 or older (1 - 1-dose 60+ series) [facility] Start: 2007 PROSTATE CANCER SCRE ENING DISCUSSION PROSTATE CANCER SCREENING DISCUSSION [facility] Start: 2002 Shingles vaccine (1 of 2) Day gles vaccine (1 of 2) [facility] Start: 2002 SHINGRIX VACCINE (1 of 2) DAY GRIX VACCINE (1 of 2) [facility] Start: 2002 Tuberculosis screening COLOREC MONIQUE CANCER SCREENING,SEE MODIFIER [facility] Start: 2002 Zoster Vaccines (1 of 2) Zoste r Vaccines (1 of 2) [facility] Start: 1997 COLOGUARD (FIT-DNA) COLOGUARD (FIT-D NA) [facility] Start: 1997 Colonoscopy COLONOSCOPY [facility] Start: 1997 COLORECTAL CANCER SCREENING COLORECTAL CANCER SCREENING [facility] Start: [address] COLONOGRAPHY [facility] Start: 1997 FECAL OCCULT BLOOD FECAL OCCULT BLOO D [facility] Start: 1997 Screening for malign ant neoplasm of colon [facility] Start: 1997 SIGMOIDOSCOPY SIGMOIDOSCOPY [facility] Start: 1987 Diabetes screen Diabetes screen [facility] Start: 1971 Urine microalbumin profile DTAP,TDAP,TD (1 - Tdap) [facility] Start: 1970 ANNUAL PCP TEAM ASSISTANT TO THE DEAN KEESHA DISEASE VISIT ANNUAL PCP TEAM CHRONIC DISEASE VISIT [facility] Start: 1970 BP CONTROLLED (<130/80) BP CONTROLLE D (<130/80) [facility] Start: 1970 Diabetes mellitus screening Diabetes Screening [facility] Start: 1970 HEPATITIS C SCREENING HEPATITIS C JOBY VILLARREAL [facility] Start: 1970 Hepatitis C screening [facility] Start: 1964 Adult depression screening assessment DEPRESSION SCREENING [facility] Start: 1964 Depression Screen [facility] Start: 1962 Diabetic foot examination Diabetes: Foot Exam [facility] Start: 1962 Glaucoma screening Diabetes: R etinopathy Screening [facility] Start: 1962 Preventive dental service Diabetes: Dental Exam [facility] Start: 1952 Echocardiography Echocardiogram [facility] Start: 1952 Hemoglobin A1c measurement Diabetes: Hemoglobin A1C [facility] Start: 1952 Lipid panel Lipid Panel [facility] Start: 1952 Screening for malign ant neoplasm of colon [facility] Bacteria identified in Urine by Culture Urine Culture [facility] Work Phone: End: 03-02-2022 CBC W Auto Differential panel - Blood CBC with Auto Differential Lab Routine One Time for 1 Occurrences starting 03/02/2022 until 03/02/2022 [facility]: Comment on above: One Time for 1 Occur rences starting 03/02/2022 until 03/02/2022 End: 03-02-2022 Comprehensive metabolic 2000 panel - Serum or Plasma Comprehensive Metabolic Panel Lab STAT One Time for 1 Occurrences starting 03/02/2022 until 03/02/2022 [facility] Work Phone: Comment on above: One Time for 1 Occur rences starting 03/02/2022 until 03/02/2022 End: 09-06-2023 CT Abdomen WO contrast [facility] [place] [facility] Work Phone: Comment on above: Once for [...] [facility] Work Phone: Oxygen therapy [[facility] Data Set] Initiate Oxygen Therapy Protocol Respiratory [...] been ruled out! Planned Goals not documented [facility] Work Phone: Immunizations Immunization Date Immunization Notes Care Provider Fa cili 03-04-2019 influenza, high dose seasonal, preservative-free Sarika Salas [facility] 12-03-2018 pneumococcal polysac charide vaccine, 23 valent [facility] Salas [facility] Work Phone: 01-25-2018 influenza, high dose seasonal, [...] Phone: Payers Date Payer Category Payer Unknown [id number] 03-19-2024 Self-pay 01-05-2022 Medicaid 01-05-2022 Medicare 01-05-2022 Medicare [id number] 10-05-2021 Medicaid [id number]. [id number] 06-07-2021 Medicare UHC MEDICARE UHC DUAL COMPLETE HMO SNP [id number] 06/07/2021-Present [phone] [address] [place] [address] Medicare [id number]. 2.7.3.452875.315 06-07-2021 Medicare UHC MEDICARE [employer] DUAL COMPLETE [id number] 06/07/2021-Present [phone] [address] [place] [address] [id number]. 2.7.3.492988.315 11-05-2019 Medicare UHC AARP MEDICAR E [facility] AARP MEDICARE HMO [id number] 11/05/2019-Present O [id number] 1.2.840.500532.1.13.159. 2.7.3.306052.315 07-06-2015 Medicare UHC MEDICARE UHC MEDICARE COMPLETE xxxxxxxxx 2015-Present xxxxxxxxx 1.2.840.337741.1.13.239. 2.7.3.422375.315 1952 Unknown [id number] 2.16.840.1.473626.3.579. 2.668 1952 Unknown [id number] 2.16.840.1.972705.3.579. 2.668 1950 Unknown [id number] 2.840.1.119809.3.579. 2.6605-06-1950 Unknown [id number] 2.16.840.1.276622.3.579. 2.8 1950 Unknown [id number] 2.840.1.007893.3.579. 2.[birth year]-06-1950 Unknown [id number] 2.840.1.421496.3.579. 2.668 1950 Unknown [id number] 2.840.1.099617.3.579. 2.668 Private Health Insurance Unknown Unknown [id number] 2.840.1.773023.3.579. 2.462 Unknown [id number] 2.840.1.453992.3.579. 2.462 Unknown [id number] 2.840.1.400768.3.579. 2.462 Unknown [id number] 2.840.1.497847.3.579. 2.462 Unknown [id number] 2.16840.1.661570.3.579. 2.462 Unknown [id number] 2.16.840.1.712849.3.579. 2.462 Unknown [id number] 2.16.840.1.731935.3.579. 2.462 Unknown [id number] 2.16.840.1.769441.3.579. 2.462 Unknown [id number] 2.840.1.046779.3.579. 2.462 Unknown [id number] 2.16.840.1.815426.3.579. 2.462 Unknown [id number] 2.16.840.1.243786.3.579. 2.462 Unknown [id number] 2.16.840.1.577946.3.579. 2.462 Unknown [id number] 2.16.840.1.444950.3.579. 2.462 Unknown [id number] 2.16.840.1.972790.3.579. 2.462 Unknown [id number] 2.16.840.1.662084.3.579. 2.462 Unknown [id number] 2.840.1.290757.3.579. 2.462 Unknown [id number] 2.840.1.619463.3.579. 2.462 Unknown [id number] 2..840.1.933525.3.579. 2.462 Unknown [id number] 2.840.1.120892.3.579. 2.462 Unknown [id number] 2.840.1.532758.3.579. 2.462 Unknown [id number] 2.16.840.1.201986.3.579. 2.462 Unknown [id number] 2.16.840.1.599367.3.579. 2.462 Unknown [id number] 2..840.1.446430.3.579. 2.462 Unknown [id number] 2.16.840.1.983435.3.579. 2.462 Unknown [id number] 2.16.840.1.269219.3.579. 2.462 Unknown [id number] 2.16.840.1.759950.3.579. 2.462 Unknown [id number] 2.16.840.1.658346.3.579. 2.462 Unknown [id number] 2.16840.1.816052.3.579. 2.462 Unknown [id number] 2.16.840.1.561892.3.579. 2.462 Unknown [id number] 2.16840.1.516220.3.579. 2.462 Unknown [id number] 2.16.840.1.416037.3.579. 2.462 Unknown [id number] 2.16840.1.765743.3.579. 2.462 Unknown [id number] 2.16840.1.540969.3.579. 2.462 Unknown [id number] 2.840.1.864640.3.579. 2.462 Unknown [id number] 2.840.1.495071.3.579. 2.462 Unknown [id number] 2.840.1.506453.3.579. 2.462 Unknown [id number] 2.840.1.481337.3.579. 2.462 Unknown [id number] 2.840.1.980128.3.579. 2.462 Unknown [id number] 2.840.1.529918.3.579. 2.462 Unknown [id number] 2.840.1.806708.3.579. 2.462 Unknown [id number] 2.840.1.732814.3.579. 2.462 Unknown [id number] 2.840.1.280997.3.579. 2.462 Unknown [id number] 2.840.1.559915.3.579. 2.462 Unknown [id number] 2.840.1.413296.3.579. 2.462 Unknown [id number] 2.840.1.717984.3.579. 2.462 Unknown [id number] 2.16840.1.698736.3.579. 2.462 Unknown [id number] 2.16.840.1.658949.3.579. 2.462 Unknown [id number] 2.16.840.1.325567.3.579. 2.462 Unknown [id number] 2.16.840.1.591636.3.579. 2.462 Unknown [id number] 2.16.840.1.031729.3.579. 2.462 Unknown [id number] 2.16.840.1.133511.3.579. 2.462 Unknown [id number] 2.16.840.1.212944.3.579. 2.462 Unknown [id number] 2.16.840.1.944473.3.579. 2.462 Unknown [id number] 2.16.840.1.064515.3.579. 2.462 Unknown [id number] 2.16.840.1.602337.3.579. 2.462 Unknown [id number] 2.16.840.1.086512.3.579. 2.462 Unknown [id number] 2.16.840.1.373434.3.579. 2.462 Unknown [id number] 2.16.840.1.009325.3.579. 2.462 Unknown [id number] 2.16.840.1.055586.3.579. 2.462 Unknown 24587880 2.16.840.1.191056.3.579. 2.462 Unknown [id number] 2.16.840.1.498532.3.579. 2.462 Unknown [id number] 2.16.840.1.813076.3.579. 2.462 Unknown [id number] 2.16.840.1.089389.3.579. 2.462 Unknown [id number] 2.16.840.1.332392.3.579. 2.462 Unknown [id number] 2.16.840.1.395776.3.579. 2.462 Unknown [id number] 2.16.840.1.325662.3.579. 2.462 Unknown 83541981 2.16.840.1.297941.3.579. 2.462 Unknown [id number] 2.16.840.1.691852.3.579. 2.462 Unknown [id number] 2.16.840.1.942382.3.579. 2.462 Unknown [id number] 2.16.840.1.015119.3.579. 2.462 Unknown [id number] 2.16.840.1.432790.3.579. 2.462 Unknown [id number] 2.16.840.1.222518.3.579. 2.462 Unknown [id number] 2.16.840.1.189970.3.579. 2.462 Unknown [id number] 2.16.840.1.607076.3.579. 2.462 Unknown 62358648 2.16.840.1.367299.3.579. 2.462 Unknown 60031904 2.16.840.1.738218.3.579. 2.462 Unknown 36227911 2.16.840.1.468993.3.579. 2.462 Unknown 76679635 2.16.840.1.143858.3.579. 2.462 Unknown 19164906 2.16.840.1.522639.3.579. 2.462 Unknown 02061505 2.16.840.1.240676.3.579. 2.462 Unknown 95404881 2.16.840.1.601789.3.579. 2.462 Unknown 56702923 2.16.840.1.265539.3.579. 2.462 Unknown 59545771 2.16.840.1.638773.3.579. 2.462 Unknown 09224504 2.16.840.1.806669.3.579. 2.462 Unknown 31681363 2.16.840.1.413140.3.579. 2.462 Unknown 32270091 2.16.840.1.470021.3.579. 2.462 Unknown 35603770 2.16.840.1.727775.3.579. 2.462 Unknown 75320625 2.16.840.1.404410.3.579. 2.462 Unknown 43451194 2.16.840.1.431578.3.579. 2.462 Unknown 63884995 2.16.840.1.360988.3.579. 2.462 Unknown 96540766 2.16.840.1.832161.3.579. 2.462 Unknown 72914715 2.16.840.1.295501.3.579. 2.462 Unknown 55465796 2.16.840.1.012974.3.579. 2.462 Unknown 24914054 2.16.840.1.755828.3.579. 2.462 Unknown 30589010 2.16.840.1.292751.3.579. 2.462 Unknown 38762281 2.16.840.1.069294.3.579. 2.462 Unknown 48654867 2.16.840.1.833003.3.579. 2.462 Unknown 20232391 2.16.840.1.284094.3.579. 2.462 Unknown 50279838 2.16.840.1.671427.3.579. 2.462 Unknown 89286602 2.16.840.1.668964.3.579. 2.462 Unknown 26944163 2.16.840.1.425630.3.579. 2.462 Unknown 15861854 2.16.840.1.128183.3.579. 2.462 Unknown 53917954 2.16.840.1.293876.3.579. 2.462 Unknown 85430704 2.16.840.1.223308.3.579. 2.462 Unknown 88846183 2.16.840.1.020927.3.579. 2.462 Unknown 37671030 2.16.840.1.809327.3.579. 2.462 Unknown 79828537 2.16.840.1.212457.3.579. 2.462 Unknown 84130067 2.16.840.1.729104.3.579. 2.462 Unknown 89432434 2.16.840.1.227019.3.579. 2.462 Unknown 25060999 2.16.840.1.556009.3.579. 2.462 Unknown [id number] 2.16.840.1.125176.3.579. 2.462 Unknown [id number] 2.16.840.1.739346.3.579. 2.462 Unknown [id number] 2.16.840.1.361263.3.579. 2.462 Unknown [id number] 2.16.840.1.034545.3.579. 2.462 Unknown [id number] 2.16.840.1.732004.3.579. 2.462 Social History Date Type Detail Facility Start: 05-23-2018 End: 05-19-2019 Tobacco smoking status GAIS Former smoker [facility] Work Phone: History of tobacco use Cigar Smoker [facility] Work Phone: Start: 05-19-2019 End: 08-13-2023 Cigarettes smoked current (pack per day) - Reported [facility] Work Phone: Start: 05-19-2019 End: 08-13-2023 Alcohol intake Current non-drinker of alcohol (finding) [facility] Work Phone: Start: 12-03-2018 History SDOH Physica l Activity DPW 7 [facility] Work Phone: Start: 12-03-2018 History SDOH Physica l Activity MPS 9 [facility] Work Phone: Start: 12-03-2018 End: 10-31-2021 History SDOH Stress 1 [facility] Work Phone: Start: 12-03-2018 History SDOH Financial 5 [facility] Work Phone: Start: 12-03-2018 History SDOH Transpo rt Med 2 [facility] Work Phone: Start: 1950 Sex Assigned At Not on file S [facility] Work Phone: Start: 08-13-2012 End: 11-13-2019 Tobacco smoking status NHIS Never smoker [facility] Start: 05-23-2018 End: 11-13-2019 Tobacco use and exposure Never used [facility] Start: 11-13-2019 History SDOH Alcohol Std Drinks 98 [facility] Start: 10-11-2021 End: 02-15-2022 Exposure to SARS-CoV-2 (event) Not sure [facility] Start: 1950 Sex Assigned At Male [facility] History of tobacco use Current smoker [facility] Work Phone: History of tobacco use Cigarette Smoker S [facility] Work Phone: Start: 10-31-2021 End: 08-13-2023 Tobacco use panel [facility] Tobacco smoking stat us GAIS Unknown if ever smoked [facility] Work Phone: Start: 07-11-2024 End: 08-21-2024 Sex Male (finding) [facility] NEGATED: Highlighted row - - [facility] Work Phone: Medical Equipment Procedure Code Equipment Code Equipment Origin al Text Equipment Identifier Dates Kit Bactiseal Woodard maria guadalupe Silicone Barium Catheter Shunt Sterile - [id number] Start: 06-08-2021 Catheter Bactise al 14cm External Drainage Csf Sterile Latex Free - [id number] Start: 08-05-2021 Valve Certas Shannon nt Inline - [id number] Start: 06-08-2021 Cass snow Inline - [id number] Start: 08-05-2021 Valve Armando snow Inline - [id number] Start: 08-09-2021 Goals Date Patient Goal [...] confident he can reach it. Added to [facility] exercise information Functional Status Date Assessment Result Facility NEGATED: Highlighted row Functional performance Functional status health issues are not documented Disease [facility] Work Phone: Mental Status Date Assessment Result Facility NEGATED: Highlighted row Cognitive function [Interpretation] Cognitive status health issues are not documented Disease [facility] Work Phone: Clinical Notes [...] Hydrocephalus, adult (CMS/HCC) (HCC) Kidney stone Neuropathy NURSING COORDINATOR (ventriculoperitoneal) shunt status Past Surgical History: Procedure [...] 09/13/23 12:05 PM documented in this encounter [facility] 08-31-2023 Note S: Shanthi from [facility] spoke with [facility] nurse regarding voiding trial procedure. [...] Protocols used: Information Only Call - No [facility] Telephone encounter Note S: Shanthi from [facility] spoke with [facility] nurse regarding voiding trial procedure. [...] Protocols used: Information Only Call - No Yymtct-LNROO-SI [facility] 08-31-2023 Miscellaneous Notes S: Shanthi from [place] [facility] [place] spoke with [facility] nurse regarding voiding trial procedure. B: Onset of symptoms/concern today. A: [facility] is calling to make sure that the [...] Protocols used: Information Only Call - No Bgzoug-PCHVA-HG documented in this encounter [facility] 08-29-2023 Telephone encounter Note Lm on daughters vm to advise them to call the number for the online communications manager to get clarification, and to call back with further questions [facility] 08-29-2023 Miscellaneous Notes Lm on daughters vm to advise them to call the number for the online communications manager to get clarification, and to call back with further questions Yes, they will need to call the number given to them. Please advise Name of caller: Shanthi Contact phone number: [phone] Relationship to Patient: patient Provider: MD Quinn [...] reach out to call Maury Avila at [facility] [phone] to get clarifications. TEA did reach back out to [facility] and advised and provider Maury's #. Please advise Best time of day caller can be reached: Any Patient advised that office/PCP has 24-48 business hours to return their call: N/A documented in this encounter [facility] 08-27-2023 Telephone encounter Note Yes, they will need to call the number given to them. [facility] 08-27-2023 Telephone encounter Note Please advise [facility] 08-21-2023 Telephone encounter Note Name of caller: Shanthi Contact phone number: [phone] Relationship to Patient: patient Provider: MD Quinn [...] to CS and was advised to let [facility] know that she would need to reach out to call Maury Avila at [facility] [phone] to get clarifications. [facility] did reach back out to [facility] and advised and provider Maury's #. Please advise Best time of day caller can be reached: Any Patient advised that office/PCP has 24-48 business hours to return their call: N/A [facility] [place] 08-13-2023 History of Present illness Narrative Images [...] Hydrocephalus, adult (CMS/HCC) (HCC) Kidney stone Neuropathy NURSING COORDINATOR (ventriculoperitoneal) shunt status Past Surgical History: Past [...] 08/13/23 10:45 AM documented in this encounter [facility] 06-25-2023 Telephone encounter Note [facility] called in stating appt scheduled 07/10/23 Guy has to be made further out, pt being transported by cot. Changed appt to 08/13/23 per [facility] only avail time for transport, first avail with DR Buck at 10:00 AM. [facility] 06-25-2023 Miscellaneous Notes [facility] called in stating appt scheduled 07/10/23 Guy has to be made further out, pt being transported by cot. Changed appt to 08/13/23 per [facility] only avail time for transport, first avail with DR Buck at 10:00 AM. documented in this encounter [facility] 12-22-2021 Hospital Discharge instructions SANIA Lou - 12/22/2021 2:32 AM EDT Please take medication as prescribed Please follow up with your Physicians as instructed in this discharge paperwork Thank you for choosing [facility] I appreciate your patience Please return to the emergency department if your symptoms worsen, or new symptoms develop as discussed documented in this encounter [facility] Work Phone: 10-29-2021 Note Hospitalist Discharg e [...] abnormality and previous indwelling tubing history of NURSING COORDINATOR shunt ? #?Bilateral lower extremity wounds-wound care [...] Your Medications These medications were sent to [facility] [address] [place] [address] [address] [facility] - P [phone] - F [phone] [facility] [id number] ? levETIRAcetam 750 MG tablet ? warfarin 6 MG tablet Recommended Follow-up: No follow-up provider specified. Complexity of Follow up: [] Moderate Complexity: follow up within 7-14 calendar days (74159) [x] Severe Complexity: follow up within 7 calendar days (49758) Follow up Testing, Pending results or Referrals [...] Increased fatigue or (more content not included)... [facility] 10-29-2021 Hospital Discharge instructions Fabi Subramanian [...] Contact Information Primary Emergency Contact: NelsonTriny Address: [address] [place] [address] [place] [address] [facility] Relation: Brother/Sister Secondary Emergency Contact: Melissa Sifuentes Mobile Relation: Child Preferred language: Fijian Past Surgical History: Past Surgical History: Procedure Laterality Date BRAIN SURGERY CHOLECYSTECTOMY COLONOSCOPY HERNIA REPAIR Immunization History: Immunization History Administered Date(s) Administered Influenza Virus Vaccine 02/08/2015 Influenza, High Dose (Fluzone 65 yrs and older) 01/25/2018, 03/04/2019 Influenza, Quadv, IM, (6 mo and older Fluzone, Flulaval, Fluarix and 3 yrs and older Afluria) 02/24/2016, 02/14/2017 Pneumococcal Conjugate 13-valent ([id number]) 09/22/2016 Pneumococcal Conjugate Vaccine 02/04/2013 Pneumococcal Polysaccharide ([id number]) 12/03/2018 Tdap (Boostrix, Adacel) 09/22/2016 Active Problems: [...] Dependent Dressing Dependent Toileting Dependent Feeding Dependent Parts Control Clerk Dependent Med Delivery whole in pudding Wound [...] Q4H prn SOB Oxygen Therapy: {Therapy; copd oxygen:14508} Ventilator: { CC Vent List:[id number]} Rehab Therapies: {THERAPEUTIC INTERVENTION:5207864864} Weight Bearing Status/Restrictions: Weight Bearing - Patient was bedbound in hospital Other Medical Equipment (for information only, NOT a DME order): wheelchair, hospital bed, and Boaz Other Treatments: Patient's personal belongings (please select all that are sent with patient): {[facility] DME Belongings:995961840} RN SIGNATURE: CASE MANAGEMENT/SOCIAL WORK SECTION Inpatient Status Date: Readmission Risk Assessment Score: Readmission Risk Risk of Unplanned Readmission: 11 Discharging to Facility/ Agency Name: Address: Phone: Fax: Dialysis Facility (if applicable) Name: Address: Dialysis Schedule: Phone: Fax: Haz Tech/Loss Prevention Leader signature: {Esignature:[id number]} PHYSICIAN SECTION Prognosis: Fair Condition at Discharge: Stable Rehab Potential (if transferring to Rehab): Fair Recommended Labs or Other Treatments After Discharge: Coumadin based on INR target range 2-3, Coumadin 6 mg on 10/30 and 10/31, recheck INR 11/01 and notify physician, ideally should be on 6 mg alt with 7 mg daily, PT/OT, follow-up with neurologist in 1 month, continue [facility] Physician Certification: I certify [...] Phone: 10-29-2021 History of Present illness Narrative [facility] Anticoagulation Management Service ([facility]) Inpatient Warfarin Consult HPI: Andrew Sifuentes is a 71 y.o. 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 Past Medical History: Diagnosis Date ED (erectile dysfunction) Hemorrhoids Hydrocephalus, adult (HCC) Kidney stone Neuropathy NURSING COORDINATOR (ventriculoperitoneal) shunt status Patient is newly referred to the [facility] clinic for warfarin management. Pt was [...] PharmD IRVIN Consult Service is available daily [phone]. Please search for covering pharmacist name via [employer] or Groups --> Pharmacy --> Anti-Coagulation Consult Pharmacist (on 3rd page). If no response via [employer], please page [phone]. Patient seen and chart reviewed. Afebrile. Adequate oxygenation on room air. Baseline mentation. Exam stable X 5 systems. Hgb 11.0 WBC 10.0 K Platelets 344 K Creatinine 0.71 GFR > 90 cc/min. NSE 20.8 with hemolysis. PT 30.8 INR 3.1 Conversion to Warfarin has been completed. APS w/u pending. Discussed with patient's aadc plans staff officer. Will continue to monitor. Total visit time > 35 minutes. Neurology Attending Progress Note SUBJECTIVE: No issues overnight. Care discussed with nursing staff/patient's medical team MRI brain reported nothing acute. Assessment and Plan: 71 yr M with PMH obstructive hydrocephalus s/p NURSING COORDINATOR shunt in 1987, needing multiple revisions and [...] normal limits and both old and new NURSING COORDINATOR shunt tubing noted. At present patient is awake, follows commands, was able to tell his name, and that he was in hospital but not oriented to time. Per documentation patient had NCSE in May 2021, was on Vimpat, but it was discontinued as there was no evidence of recurrent seizures in july 2021 by Neurology at [facility], per daughter patient was on Dilantin for 31 yrs. Per daughter patient had seizures in the past and also felt he had staring episodes 10/26/2021 morning. Per daughter patient has been essentially bed bound in [place] since May 2021 but prior to that was independent Impressions: H/O hydrocephalus H/O seizure, H/O stroke Acute DVT H/O PE Plan: -MRI brain w/o contrast nothing acute -CT head done during this admission reported no hydrocephalus, ventricles within normal limits and both old and new NURSING COORDINATOR shunt tubing noted -EEG mild to moderate slow, no seizures reported -Labs reviewed -Hydrocephalus management per Neurosurgery. At present patient does not have hydrocephalus on CT head done this admission. No Neurosurgery services available as inpatient in [facility]. Patient can follow up with Neurosurgery as outpatient and if ends up needing inpatient neurosurgery requirement then may need to be transferred to [facility]. -No clear clinical signs of ventriculitis. Defer evaluation to primary medical team/ID as deemed necessary. -Discussed with daughter in detail on . She was concerned that patient has had h/o seizures, and he has been taken off seizure medication, per note documentation patient had NCSE in May 2021 when he was admitted to [facility]. Per daughter she would want [...] is no in house Neurology coverage at [facility] over the weekend, primary hospitalist team to contact field agronomist Neurology at [facility] for any weekend neurological issues related to the patient and if need to discuss any neurological test results/findings. Other deal in house Neurology coverage will be available from Sunday at [facility] and please call field agronomist Neurology back on Sunday if need further assistance. This note has been generated using Kngine dictation software. It may contain incorrect words, punctuation's and spellings that were not noted in the review of the note prior to signing. This note has been generated using Kngine dictation software. It may contain incorrect words, [...] 26 AST 24 BILITOT 0.4 LABALBU 3.7 @[facility]EFLAB([facility]) ABGs: )No results for input(s): PH, [...] Radiology ACCESSION EXAM DATE/TIME PROCEDURE ORDERING PROVIDER [id number] 10/21/2021 15:30 EDT CR Calcaneus 2+ Views [id number] -SHRUTHI MALIK Left CPT code 42534 Reason For Exam (CR Calcaneus 2+ Views [...] [facility]: [id number] Computed Tomography ACCESSION EXAM DATE/TIME PROCEDURE ORDERING PROVIDER [id number] 10/26/2021 11:[address] Head or Brain w/o JUNIE PINEDA ALLISON Contrast CPT code 36526 Reason For Exam (CT Head or Brain w/o Contrast) hydrocephalus. thank you Report CLINICAL INFORMATION: Hydrocephalus. Shunt. 3 mm axial cuts through the head are obtained without IV contrast. The examination is compared to a previous study dated 06/29/2014. FINDINGS: Old NURSING COORDINATOR shunt tubing is noted bilaterally. The new [...] are clear. IMPRESSION: 1. Old and new NURSING COORDINATOR shunt tubing. 2. No hydrocephalus. 3. Atrophy [...] Imaging ACCESSION EXAM DATE/TIME PROCEDURE ORDERING PROVIDER [id number] 10/23/2021 11:08 EDT MRI Abdomen w/o Contrast SRIVASTAVAWING CPT code 04802 Reason For Exam (MRI Abdomen w/o Contrast) [...] Medicine ACCESSION EXAM DATE/TIME PROCEDURE ORDERING PROVIDER [id number] 10/21/2021 07:55 EDT NM Pulmonary Perfusion [id number] -MAY CASH w/ Vent Aerosol CPT code 21343 A9567 Reason For Exam (NM Pulmonary Perfusion [...] Brachial Indices Extremity Bilateral Result Date: 10/22/2021 [facility] --- Ankle Brachial Index Report Patient DO GurpreetB: 1950 Study 10/21/2021 Name: Andrew Gonzalez (71yrs) Date: Age: 71 Account: [id number] Gender: M Loc: 444W BP: Ordering Physician: Shruthi Malik Sludge Filtration Operator: Rody Cross RDMS, RVT Interpreting Physician: Carina Call --- Location: [facility] --- Indications: Foot wounds. Originally ordered as a full PVR. Ordering HOSPICE RN had to modify the order to ABIs [...] supine position. Images were obtained using a [employer] vascular ultrasound machine. --- Arterial pressure indices: [...] EXTREMITY BILATERAL VENOUS DUPLEX Result Date: 10/21/2021 [facility] --- Lower Extremity Venous Duplex Report Patient DO GurpreetB: 1950 Study 10/21/2021 Name: Andrew Gonzalez (71yrs) Date: Age: 71 Account: [id number] Gender: M Loc: 444 BP: Ordering Physician: May Cash Sludge Filtration Operator: Rody Cross RDMS, RVT Interpreting Physician: Carina [...] supine position. Images were obtained using a [employer] vascular ultrasound machine. --- Venous flow and [...] Radiology ACCESSION EXAM DATE/TIME PROCEDURE ORDERING PROVIDER [id number] 10/21/2021 08:16 EDT CR Chest 1 View Frontal [id number] MAY BOGGS CPT code 46574 Reason For Exam (CR Chest 1 View [...] Result Date: 10/22/2021 Patient Name[id number] Computed Tomography ACCESSION EXAM DATE/TIME PROCEDURE ORDERING PROVIDER [id number] 10/22/2021 13:[address] Abdomen/Pelvis (No SRIVASTAVA, WING PO, No IV) CPT code 78178 Reason For Exam (CT Abdomen/Pelvis (No PO, [...] Imaging ACCESSION EXAM DATE/TIME PROCEDURE ORDERING PROVIDER [id number] 10/27/2021 13:14 EDT MRI Brain w/o Contrast UNASSIGNED, UNASSIGNED CPT code 90287 Reason For Exam (MRI Brain w/o Contrast) stroke Patient has NURSING COORDINATOR shunt in place, please follow Radiology protocol [...] included. Hospitalist Progress Note 10/28/2021 11:37 AM [phone]: Please page me @ [phone] for patient care issues. [phone]: Please page satellite communications operator for any issues@ night Subjective: Admit Date: [...] abnormality and previous indwelling tubing history of NURSING COORDINATOR shunt # Bilateral lower extremity wounds-wound care [...] Services This report was created using the [employer] Speaking voice-activated system. Despite prompt dictation and [...] and gloves were worn throughout this session. [facility] Anticoagulation Management Service ([facility]) Inpatient Warfarin Consult HPI: Andrew Sifuentes is a 71 y.o. 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 Past Medical History: Diagnosis Date ED (erectile dysfunction) Hemorrhoids Hydrocephalus, adult (HCC) Kidney stone Neuropathy NURSING COORDINATOR (ventriculoperitoneal) shunt status Patient is newly referred to the [facility] clinic for warfarin management. Pt was [...] drug interactions and adjust dose accordingly. 3. [facility] will manage while inpatient and sign off at discharge. Patient resides in a SNF. 4. Will provide warfarin education including [facility] warfarin booklet, if appropriate. Brionna Le, PharmD candidate Josie Gupta RPh, PharmD [facility] Consult Service is available daily [phone]. Please search for covering pharmacist name via PerfectServe or Groups --> Pharmacy --> Anti-Coagulation Consult Pharmacist (on 3rd page). If no response via PerfectServe, please page [phone]. Follow up b/l foot wounds. No new [...] yr M with PMH obstructive hydrocephalus s/p NURSING COORDINATOR shunt in 1987, needing multiple revisions and [...] normal limits and both old and new NURSING COORDINATOR shunt tubing noted. At present patient is awake, follows commands, was able to tell his name, and that he was in hospital but not oriented to time. Per documentation patient had NCSE in May 2021, was on Vimpat, but it was discontinued as there was no evidence of recurrent seizures in july 2021 by Neurology at [facility], per daughter patient was on Dilantin for 31 yrs. Per daughter patient had seizures in the past and also felt he had staring episodes 10/26/2021 morning. Per daughter patient has been essentially bed bound in [place] since May 2021 but prior to that was independent Impressions: H/O hydrocephalus H/O seizure, H/O stroke Acute DVT H/O PE Plan: -MRI brain w/o contrast. Per daughter she would like MRI brain done to evaluate for strokes -CT head done during this admission today reported no hydrocephalus, ventricles within normal limits and both old and new NURSING COORDINATOR shunt tubing noted -EEG mild to moderate slow, no seizures reported -Labs reviewed -Hydrocephalus management per Neurosurgery. At present patient does not have hydrocephalus on CT head done this admission. No Neurosurgery services available as inpatient in [facility]. Patient can follow up with Neurosurgery as outpatient and if ends up needing inpatient neurosurgery requirement then may need to be transferred to [facility]. -No clear clinical signs of ventriculitis. Defer evaluation to primary medical team/ID as deemed necessary. -Discussed with daughter in detail on . She was concerned that patient has had h/o seizures, and he has been taken off seizure medication, per note documentation patient had NCSE in May 2021 when he was admitted to [facility]. Per daughter she would want [...] interim. This note has been generated using Kngine dictation software. It may contain incorrect words, punctuation's and spellings that were not noted in the review of the note prior to signing. This note has been generated using Kngine dictation software. It may contain incorrect words, [...] LABALBU, AMYLASE, LIPASE in the last 72 hours.@[facility]) ABGs: )No results for input(s): PH, [...] Radiology ACCESSION EXAM DATE/TIME PROCEDURE ORDERING PROVIDER [id number] 10/21/2021 15:30 EDT CR Calcaneus 2+ Views [id number] -SHRUTHI MALIK Left CPT code 37315 Reason For Exam (CR Calcaneus 2+ Views [...] Tomography ACCESSION EXAM DATE/TIME PROCEDURE ORDERING PROVIDER [id number] 10/26/2021 11:[address] Head or Brain w/o EDWIN, HOSPICE RN, SARINA Contrast CPT code 54365 Reason For Exam (CT Head or Brain w/o Contrast) hydrocephalus. thank you Report CLINICAL INFORMATION: Hydrocephalus. Shunt. 3 mm axial cuts through the head are obtained without IV contrast. The examination is compared to a previous study dated 06/29/2014. FINDINGS: Old NURSING COORDINATOR shunt tubing is noted bilaterally. The new [...] are clear. IMPRESSION: 1. Old and new NURSING COORDINATOR shunt tubing. 2. No hydrocephalus. 3. Atrophy and evidence of small-vessel ischemic disease. 4. No CT evidence of an acute intracranial process. Report Dictated on --- Final --- Dictating Physician: MD SOLANO JEFFREY Signed Date and Time: 10/26/2021 11:42 am Signed by: MD SOALNO JEFFREY Transcribed Date and Time: 10/26/2021 11:43 MRI ABDOMEN WO CONTRAST Result Date: 10/23/2021 Patient Name: ANDREW SIFUENTES [facility] ACCESSION EXAM DATE/TIME PROCEDURE ORDERING PROVIDER [id number] 10/23/2021 11:08 EDT MRI Abdomen w/o Contrast WING SRIVASTAVA CPT code 87325 Reason For Exam (MRI Abdomen w/o Contrast) [...] Medicine ACCESSION EXAM DATE/TIME PROCEDURE ORDERING PROVIDER [id number] 10/21/2021 07:55 EDT NM Pulmonary Perfusion [id number] MAY BOGGS w/ Vent Aerosol CPT code 87520 A9567 Reason For Exam (NM Pulmonary Perfusion [...] Brachial Indices Extremity Bilateral Result Date: 10/22/2021 [facility] --- Ankle Brachial Index Report Patient Gurpreet RADHA: 1950 Study 10/21/2021 Name: Andrew Gonzalez (71yrs) Date: Age: 71 Account: [id number] Gender: M Loc: 444W BP: Ordering Physician: Shruthi Malik Sludge Filtration Operator: Rody Cross RDMS, RVT Interpreting Physician: Carina Call --- Location: [facility] --- Indications: Foot wounds. Originally ordered as a full PVR. Ordering HOSPICE RN had to modify the order to ABIs [...] supine position. Images were obtained using a [employer] vascular ultrasound machine. --- Arterial pressure indices: [...] EXTREMITY BILATERAL VENOUS DUPLEX Result Date: 10/21/2021 [facility] --- Lower Extremity Venous Duplex Report Patient DO GurpreetB: 1950 Study 10/21/2021 Name: Andrew Gonzalez (71yr) Date: Age: 71 Account: [id number] Gender: M Loc: 444 BP: Ordering Physician: May Cash Sludge Filtration Operator: Rody Cross RDMS, RVT Interpreting Physician: Jakub, Carina --- [facility]: [facility] [...] supine position. Images were obtained using a [employer] vascular ultrasound machine. --- Venous flow and [...] Radiology ACCESSION EXAM DATE/TIME PROCEDURE ORDERING PROVIDER [id number] 10/21/2021 08:16 EDT CR Chest 1 View Frontal [id number] MAY BOGGS CPT code 77613 Reason For Exam (CR Chest 1 View [...] Tomography ACCESSION EXAM DATE/TIME PROCEDURE ORDERING PROVIDER [id number] 10/22/2021 13:[address] Abdomen/Pelvis (No SRIVASTAVA, WING PO, No IV) CPT code 11769 Reason For Exam (CT Abdomen/Pelvis (No PO, [...] reactivity and state change, indicative of a hiib-lt-xxqynhsp diffuse encephalopathy of nonspecific etiology. There are [...] Easy to chew diet/cut up. NEVILLE Jones M.A.CCC/FIELD MARKETING REPRESENTATIVE Time session ended: 1156 Total session minutes: 23 Images from the original note were not included. Hospitalist Progress Note 10/27/2021 10:40 AM [phone]: Please page me @ [phone] for patient care issues. [phone]: Please page satellite communications operator for any issues@ night Subjective: Admit Date: [...] Services This report was created using the [employer] Speaking voice-activated system. Despite prompt dictation and careful editorial review, there may be subtle contextual errors in this report, due to misrecognition of the spoken word. [facility] Anticoagulation Management Service ([facility]) Inpatient Warfarin Consult HPI: Andrew Sifuentes is a 71 y.o. 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 Past Medical History: Diagnosis Date ED (erectile dysfunction) Hemorrhoids Hydrocephalus, adult (HCC) Kidney stone Neuropathy NURSING COORDINATOR (ventriculoperitoneal) shunt status Patient is newly referred to the [facility] clinic for warfarin management. Pt was [...] SNF. 4. Will provide warfarin education including [facility] warfarin booklet, if appropriate. Thank you for this consult Brionna Le, RigoD candidate Josie Gupta [facility], PharmD IRVIN Consult Service is available daily [phone]. Please search for covering pharmacist name via NeoChord or Groups --> Pharmacy --> Anti-Coagulation Consult Pharmacist (on 3rd page). If no response via NeoChord, please page [phone]. I cleaned under patient's finger nails with [...] therapeutic status with Warfarin. Discussed with patient's aadc plans staff officer. Will continue to monitor. Total visit time [...] if concern Hydrocephalus Chronic WOODARD's - Revised NURSING COORDINATOR shunt - daughter requested that pt have CT / MRI of brain and neurology be consulted, this was done. - "Hydrocephalus management per Neurosurgery. At present patient does not have hydrocephalus on CT head done this morning. No Neurosurgery services available as inpatient in [facility]. Patient can follow up with Neurosurgery as outpatient and if ends up needing inpatient neurosurgery requirement then may need to be transferred to [facility]. " Seizure history, unspecified - daughter [...] get report from nursing. Continue wound care. [facility] Anticoagulation Management Service ([facility]) Inpatient Warfarin Consult HPI: Andrew Sifuentes is a 71 y.o. 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 Past Medical History: Diagnosis Date ED (erectile dysfunction) Hemorrhoids Hydrocephalus, adult (HCC) Kidney stone Neuropathy NURSING COORDINATOR (ventriculoperitoneal) shunt status Patient is newly referred to the [facility] clinic for warfarin management. Pt was referred by Ellen B Niesha, AIRCRAFT ENGINE TECHNICIAN-GENERAL INSPECTOR. Pt is on warfarin for DVT and [...] PharmD IRVIN Consult Service is available daily [phone]. Please search for covering pharmacist name via NeoChord or Groups --> Pharmacy --> Anti-Coagulation Consult Pharmacist (on 3rd page). If no response via NeoChord, please page [phone]. Moon daughter stated that any of patient's [...] a small bore straw. Additionally discussed with FIELD MARKETING REPRESENTATIVE, agreeable to assess tomorrow. Recent Chest [...] and liquids between bites. Treatment Plan Requires FIELD MARKETING REPRESENTATIVE Intervention: Yes Duration of Treatment: 2 [...] Education Response: Verbalizes understanding;Needs reinforcement Therapy Time FIELD MARKETING REPRESENTATIVE Individual Minutes Time In: 826 Time Out: 852 Minutes: 26 NEVILLE Jones 10/26/2021 9:20 AM Comprehensive Nutrition Assessment Type and Reason for Visit: Initial (DT referral for wounds) Nutrition Recommendations/Plan: 1. Recommend to continue: Easy to Chew diet with Thin Liquids as currently ordered and safe for patient to participate in. Discussed with: RN, HOSPICE RN, and FIELD MARKETING REPRESENTATIVE. FIELD MARKETING REPRESENTATIVE to assess tomorrow, best diet and [...] Malnutrition Assessment: Malnutrition Status: Moderate malnutrition (10/25/21 3069) Context: Chronic Illness Findings of the 6 [...] deltoids),Scapula (trapezius) Fluid Accumulation: Mild Extremities Gun Mechanic Strength: Not Performed Nutrition Assessment: 71 year [...] a small bore straw. Additionally discussed with FIELD MARKETING REPRESENTATIVE, agreeable to assess tomorrow. Nutrition Related [...] Anthropometric Measures: Height: 5' 7.01" (170.2 cm) Jupiter Body Weight (IBW): 148 lbs (67 kg) [...] On: Kcal/kg Weight Used for Energy Requirements: Jupiter (67.15 kg) Energy (kcal/day): 7526-3644 (27-32 kcal/kg IBW) --> increased need d/t wounds Weight Used for Protein Requirements: Jupiter (67.15 kg) Protein (g/day): 67-101 (1.0-1.5 g protein/kg IBW) Method Used for Fluid Requirements: Other (Comment) Fluid (ml/day): 6406-8359 mL daily or per MD Nutrition Diagnosis: [...] Plan of Care discussed with: Patient, RN, HOSPICE RN Edwin Goals: Goals: other (specify) Specify Other [...] to determine Puja Almanza RD, LD Contact: *[phone] Or Via NeoChord Hematology/Oncology Attending Progress Note SUBJECTIVE: Patient seen [...] IRON, TIBC, FERRITIN No results found for: [id number] No results found for: FOLATE PT 15.6 INR 1.5 CA 19 - 9 is 17 Protein S 138% Protein C 186% ASSESSMENT AND PLAN GI input appreciated. Patient continues with subtherapeutic INR. GI input appreciated. Discussed with patient's aadc plans staff officer. Will continue monitor. Total visit time > 35 minutes. [facility] Anticoagulation Management Service ([facility]) Inpatient Warfarin Consult HPI: Andrew Sifuentes is a 71 y.o. 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 Past Medical History: Diagnosis Date ED (erectile dysfunction) Hemorrhoids Hydrocephalus, adult (HCC) Kidney stone Neuropathy NURSING COORDINATOR (ventriculoperitoneal) shunt status Patient is newly referred to the [facility] clinic for warfarin management. Pt was [...] SNF. 4. Will provide warfarin education including [facility] warfarin booklet, if appropriate. Thank you for this consult Brionna Le, PharmD candidate Josie Gupta RPh, PharmD [facility] Consult Service is available daily [phone]. Please search for covering pharmacist name via NeoChord or Groups --> Pharmacy --> Anti-Coagulation Consult Pharmacist (on 3rd page). If no response via NeoChord, please page [phone]. Progress Note 10/25/2021 9:36 AM Name: Andrew [...] if concern Hydrocephalus Chronic WOODARD's - Revised NURSING COORDINATOR shunt DC planning - 10/25/21: INR subtherapeutic, [...] if concern Hydrocephalus Chronic WOODARD's - Revised NURSING COORDINATOR shunt DC planning - Can be DC'd back to ECF once MRI done if no acute findings, MRI is done, defer to hem / onc on plan for that, awaiting chest PA with fluoro Patient seen and chart reviewed. Consult dictated. Will ask GI to assess concerning the etiology of liver lesions. Will continue to monitor. [facility] Anticoagulation Management Service ([facility]) Inpatient Warfarin Consult HPI: Andrew Sifuentes is a 71 y.o. 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 Past Medical History: Diagnosis Date ED (erectile dysfunction) Hemorrhoids Hydrocephalus, adult (HCC) Kidney stone Neuropathy NURSING COORDINATOR (ventriculoperitoneal) shunt status Patient is newly referred to the [facility] clinic for warfarin management. Pt was [...] drug interactions and adjust dose accordingly. 3. [facility] will manage while inpatient and sign off at discharge. Patient resides in a SNF. 4. Will provide warfarin education including [facility] warfarin booklet, if appropriate. Thank you for this consult Brionna Le, PharmD candidate Josie Gutpa RPh, PharmD [facility] Consult Service is available daily [phone]. Please search for covering pharmacist name via [employer] or Groups --> Pharmacy --> Anti-Coagulation Consult Pharmacist (on 3rd page). If no response via PerfectServe, please page [phone]. Follow up foot wounds Patient is more alert this morning. Waffle boots are on Ulcer left heel ulcer right foot Foot drop PE, chart reviewed. Patient relates that he does not walk at home. c ontinue wound care. Images from the original note were not included. Hospitalist Progress Note 10/23/2021 1:47 PM [phone]: Please page me ([phone]) or perfect serve me for patient care issues. [phone]: Please page IMS night Hospitalist for any issues. Subjective: Admit Date: 10/21/2021 PCP: MONIKA STALEY MD Room#: 071/1465 Admitting Synopsis: 71 y/o male presents from [...] if concern Hydrocephalus Chronic WOODARD's - Revised NURSING COORDINATOR shunt DC planning - Can be DC'd [...] Hemorrhoids Hydrocephalus, adult (HCC) Kidney stone Neuropathy NURSING COORDINATOR (ventriculoperitoneal) shunt status Medications: sodium chloride warfarin [...] of Hospitalist Medicine Inpatient Medical Services PAGER: [phone] Nutrition rescreen completed. Pt referred to RD for foot ulcers. Occupational Therapy Facility/Department: [facility] Occupational Therapy Initial Assessment Name: Andrew Sifuentes : 1950 Date of Service: 10/23/2021 OT eval and treat orders received. Chart reviewed. Per notes pt from [facility], is Boaz lift at baseline, non-ambulatory, and requires assist for all ADLs. Will d/c OT orders. Elizabeth Gutierrez OT Physical Therapy Facility/Department: [address] Physical Therapy Initial Assessment Name: Andrew Sifuentes : 1950 Date of Service: 10/23/2021 PT eval and treat orders received. Chart reviewed. Per notes pt from [facility], is Boaz lift at baseline, non-ambulatory. Will d/c PT orders. Lloyd Silva PT [facility] Anticoagulation Management Service ([facility]) Inpatient Warfarin Consult HPI: Andrew Sifuentes is a 71 y.o. 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 Past Medical History: Diagnosis Date ED (erectile dysfunction) Hemorrhoids Hydrocephalus, adult (HCC) Kidney stone Neuropathy NURSING COORDINATOR (ventriculoperitoneal) shunt status Patient is newly referred to the [facility] clinic for warfarin management. Pt was [...] PharmD IRVIN Consult Service is available daily [phone]. Please search for covering pharmacist name via NeoChord or Groups --> Pharmacy --> Anti-Coagulation Consult Pharmacist (on 3rd page). If no response via IntellectSpaceve, please page [phone]. Department of Podiatry Attending Consult Note Reason for Consult: Wound care Requesting Physician: MD Oksana CHIEF COMPLAINT: Foot wounds HISTORY OF PRESENT ILLNESS: The patient is a 71 y.o. male with b/l foot wounds. Patient is awake , but not answering questions. Past Medical History: Diagnosis Date ED (erectile dysfunction) Hemorrhoids Hydrocephalus, adult (HCC) Kidney stone Neuropathy NURSING COORDINATOR (ventriculoperitoneal) shunt status Past Surgical History: Procedure [...] OT consulted. Will follow . Thank you. [facility] Respiratory Care Department Progress Note As [...] included. Hospitalist Progress Note 10/22/2021 6:33 AM [phone]: Please page me ([phone]) or perfect serve me for patient care issues. [phone]: Please page [facility] night Hospitalist for any issues. Subjective: Admit Date: 10/21/2021 PCP: MONIKA STALEY MD Room#: 630/1461 Admitting Synopsis: 71 y/o male presents from [...] consider MRI if concern Hydrocephalus - Revised NURSING COORDINATOR shunt Interval History: No overnight issues. Denies [...] no cyanosis or edema and unable to briar wood sorter BLE, this is old Musculoskeletal: Muscle loss [...] Hemorrhoids Hydrocephalus, adult (HCC) Kidney stone Neuropathy NURSING COORDINATOR (ventriculoperitoneal) shunt status Medications: sodium chloride baclofen [...] of Hospitalist Medicine Inpatient Medical Services PAGER: [phone] Images from the original note were not included. Hospitalist Progress Note 10/21/2021 5:31 PM [phone]: Please page me ([phone]) or perfect serve me for patient care issues. [phone]: Please page IMS night Hospitalist for any [...] Will need chronic OAC Hydrocephalus - Revised NURSING COORDINATOR shunt Interval History: No overnight issues. Denies [...] Hemorrhoids Hydrocephalus, adult (HCC) Kidney stone Neuropathy NURSING COORDINATOR (ventriculoperitoneal) shunt status Medications: sodium chloride baclofen [...] of Hospitalist Medicine Inpatient Medical Services PAGER: [phone] Family member Triny, sister to patient, called back to the hospital stating that she was returning a call from a provider. Her phone number is [phone] to speak with whomever was attempting to reach out to her. documented in this encounter [facility] Work Phone: 10-17-2021 Miscellaneous Notes Mr. Sifuetnes missed his hospital stay follow-up appointment w. Dr. Lim today. Called to Reschedule. Could not get through. "Subscriber you have dialed not in service" - was the automated voice mail. Unable to leave VM. No other phone# available. Ramya Negro Livestock Farm Manager [facility] documented in this encounter [facility] 08-19-2021 Note [facility] 08[facility]19-2021 Note [facility] 08-18-2021 Note [facility] 08-18-2021 Note [facility] 08-17-2021 Note [facility] 08-17-2021 Note [facility] 08-16-2021 Note [facility] 08-16-2021 Note HNO ID: [id number] Author: Katt Kelsey DO Service: Hospital Medicine Author Type: Physician Type: Plan of Care Filed: 08/16/2021 12:26 PM Note Text: Spoke with RN that line is a PICC. Katt Kelsey DO 08/16/2021 12:26 PM [facility] 08-16-2021 Note [facility] 08-16-2021 Note [facility] 08-15-2021 Note [facility] 08[facility]15-2021 Note [facility] 08-15-2021 Note [facility] 08-14-2021 Note [facility] 08[facility]14-2021 Note [facility] 08-13-2021 Note [facility] 08-13-2021 Note [facility] 08-13-2021 Note [facility] 08-13-2021 Note HNO ID: [id number] Author: Ambar Note Service: ? Author Type: ? Type: Progress Notes Filed: 08/13/2021 3:10 AM Note Text: Epic Scheduled Downtime: 08/13/2021 1:08:47 AM to 08/13/2021 2:53:47 AM [facility] 08-12-2021 Note [facility] 08-12-2021 Note [facility] 08-12-2021 Note [facility] 08-11-2021 Note [facility] 08[facility]11-2021 Note [facility] 08-11-2021 Note [facility] 08[facility]11-2021 Note [facility] 08[facility]11-2021 Note [facility] 08[facility]11-2021 Note [facility] 08-10-2021 Note [facility] 08-10-2021 Note [facility] 08-10-2021 Note [facility] 08-10-2021 Note [facility] 08-09-2021 Note HNO ID: [id number] Author: Shannon Brooks RN Service: ? Author Type: Registered Nurse Type: Nursing Progress Note Filed: 08/09/2021 7:33 PM Note Text: Report called to unit [facility] 08-09-2021 Note [facility] 08-09-2021 Note [facility] 08-09-2021 Note [facility] 08-08-2021 Note [facility] 08[facility]08-2021 Note [facility] 08-08-2021 Note [facility] 08-07-2021 Note [facility] 08[facility]07-2021 Note [facility] 08[facility]07-2021 Note [facility] 08-07-2021 Note [facility] 08[facility]07-2021 Note [facility] 08-06-2021 Note [facility] 08[facility]06-2021 Note [facility] 08-06-2021 Note [facility] 08-05-2021 Note [facility] 08[facility]05-2021 Note [facility] 08[facility]05-2021 Note [facility] 08-04-2021 Note [facility] 08[facility]04-2021 Note [facility] 08[facility]04-2021 Note [facility] 08-03-2021 Note [facility] 08[facility]03-2021 Note [facility] 08[facility]03-2021 Note [facility] 08-02-2021 Note [facility] 08[facility]02-2021 Note [facility] 08[facility]02-2021 Note [facility] 08-01-2021 Note [facility] 08-01-2021 Note [facility] 08[facility]01-2021 Note [facility] 08-01-2021 Note [facility] 07-31-2021 Note [facility] 07-31-2021 Note [facility] 07-30-2021 Note [facility] 07[facility]30-2021 Note [facility] 07[facility]30-2021 Note [facility] 07-29-2021 Note [facility] 07-29-2021 Note [facility] 07-29-2021 Note [facility] 07-28-2021 Note [facility] 07[facility]28-2021 Note [facility] 07[facility]28-2021 Note [facility] 07-27-2021 Note [facility] 07-27-2021 Note [facility] 07[facility]27-2021 Note [facility] 07-26-2021 Note [facility] 07-26-2021 Note [facility] 07[facility]26-2021 Note [facility] 07-26-2021 Note [facility] 07[facility]26-2021 Note [facility] 07-25-2021 Note [facility] 07-25-2021 Note [facility] 07[facility]25-2021 Note [facility] 07[facility]25-2021 Note [facility] 07-24-2021 Note [facility] 07[facility]24-2021 Note [facility] 07-24-2021 Note [facility] 07-23-2021 Note [facility] 07[facility]23-2021 Note [facility] 07-23-2021 Note [facility] 07[facility]23-2021 Note [facility] 07-23-2021 Note [facility] 07-22-2021 Note [facility] 07[facility]22-2021 Note [facility] 07-22-2021 Note [facility] 07-21-2021 Note [facility] 07-21-2021 Note [facility] 07-21-2021 Note [facility] 07-21-2021 History of Past i [...] history of fever, elevated WBC, RP hematoma NURSING COORDINATOR shunt tip grew anaerobic gram positive cocci 06/08/2021 PLAN: NURSING COORDINATOR shunt tip sent to [facility] main, awaiting cx Continue Meropenem [...] - following CSF studies; 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 for MANAGER TALENT infection at this time - ID following- Continue antibiotics: Meropenem -CSF leak from EVD site, appreciate NSGY recs> stat repeat CTH on 06/07 d/t concern for CSF leak, cephalematoma, CTH unremarkable -Tolerating TF - SBT WTE - PICC line placed documented as of this encounter (statuses as of 10/17/2021) [facility]03-17-2022 [facility]03-16-2022 [facility]03-16-2022 [facility]03-16-2022 Note [facility]03-16-2022 [facility] 07-19-2021 [facility]03-15-2022 [facility]03-15-2022 [facility]03-14-2022 [facility]03-14-2022 [facility]03-13-2022 [facility]03-13-2022 [facility]03-12-2022 Note [facility]03-12-2022 [facility] 07-15-2021 [facility]03-11-2022 [facility]03-10-2022 [facility]03-10-2022 [facility]03[facility]10-2022 [facility]03-09-2022 [facility]03-09-2022 [facility]03-09-2022 Note [facility]03-09-2022 [facility] 07-12-2021 [facility]03-08-2022 [facility]03-07-2022 [facility]03-07-2022 [facility]03-07-2022 [facility]03-07-2022 [facility]03-06-2022 [facility]03-06-2022 Note [facility]03-05-2022 [facility] 07-09-2021 [facility]03-05-2022 [facility]03-05-2022 [facility]03-05-2022 NoteHNO ID: [id number] Author: Lizette Valderrama RN Service: Nursing Author Type: Registered Nurse Type: Nursing Progress Note Filed: 07/09/2021 1:41 AM Note Text: Report called to [facility]03-04-2022 NoteHNO ID: [id number] Author: Lizette Valderrama RN Service: Nursing Author Type: Registered Nurse Type: Nursing Progress Note Filed: 07/08/2021 8:57 PM Note Text: [address]49 back to PACU [address] [place], [place] [id number] NoteHNO ID: [id number] Author: Sukhi Chery APRN.CNP Service: ? Author Type: Nurse Practitioner Type: Progress Notes Filed: 07/09/2021 6:46 PM Note Text: Connected Care Unit Progress Note Patient Name: Andrew Sifuentes Patient Facility: [facility] Admit Date 06/28/2021 Level of Care: Skilled [...] Dept Phone 07/21/2021 11:00 AM NICOLE LIM [phone] HPI: (Per Dr. Beltran) Andrew Sifuentes is being seen today for [facility] facility (SNF) admission AND management of weakness, tube feed, infected retroperitoneal infection and seizure. ? This is a 71 year old male who presents from [facility] with primary admitting diagnosis of Seizure, [...] CT brain concerning for hydrocephalus. Tip of NURSING COORDINATOR shunt was found to be in the [...] slow to respond. Ordered to transfer to [facility] ED for evaluation of neurological [...] changes in co (more content not included)... [facility]03-04-2022 [facility]03-04-2022 [facility]03-02-2022 NoteHNO ID: [id number] Author: Sukhi Chery APRN.CNP Service: ? Author Type: Nurse Practitioner Type: Progress Notes Filed: 07/09/2021 6:20 PM Note Text: Connected Care Unit Progress Note Patient Name: Andrew Sifuentes Patient Facility: [facility] Admit Date 06/28/2021 Level of Care: Skilled [...] Dept Phone 07/21/2021 11:00 AM NICOLE LIM [phone] HPI: (Per Dr. Beltran) Andrew Sifuentes is being seen today for [facility] facility (SNF) admission AND management of weakness, tube feed, infected retroperitoneal infection and seizure. ? This is a 71 year old male who presents from [facility] with primary admitting diagnosis of Seizure, [...] CT brain concerning for hydrocephalus. Tip of NURSING COORDINATOR shunt was found to be in the [...] Pharynx: Oropharynx is clear. (more content not included)...[facility]02-28-2022 NoteHNO ID: [id number] Author: Sukhi Chery APRN.GENERAL INSPECTOR Service: ? Author Type: Nurse Practitioner Type: Progress Notes Filed: 07/09/2021 6:07 PM Note Text: Connected Care Unit Progress Note Patient Name: Andrew Sifuentes Patient Facility: [facility] Admit Date 06/28/2021 Level of Care: Skilled [...] but nursing notes it was drawn by mortgage sales manager as vancomycin was being infused; reordered trough - PICC Line Intact - No fevers or chills per patient or staff (R53.81) Debility - Certify therapies - Maintain high falls risk precautions - pt/staff verbalize understanding validated via teach back - Monitor safety awareness Appointments for Next 60 Days Date Time Provider Location Dept Phone 07/21/2021 11:00 AM NICOLE LIM [phone] HPI: (Per Dr. Beltran) Andrew Sifuentes is being seen today for [facility] facility (SNF) admission AND management of weakness, tube feed, infected retroperitoneal infection and seizure. ? This is a 71 year old male who presents from [facility] with primary admitting diagnosis of Seizure, [...] CT brain concerning for hydrocephalus. Tip of NURSING COORDINATOR shunt was found to be in the [...] to facility records. OBJECTIVE: Labs/diagnostics: 07/04/2021 Glucose=91 Qp=439 K=3.8 Kj=195 CO2=24 BUN=14 Creatinine=0.5 XXD=991 Ca=9.0 Protein,Total=6.7 Albumin=3.6 BpfCuqd=994 AST=15 ALT=21 Bilirubin,Totall=0.5 WBC=10.7 RBC=4.04 Hgb=10.9 Hct=35.3 Wiiylgby=434 VancomycinTr (more content not included)...[facility]02-24-2022 NoteHNO ID: [id number] Author: Sukhi Chery APRN.KIM Service: ? Author Type: Nurse Practitioner Type: Progress Notes Filed: 07/09/2021 5:43 PM Note Text: Connected Care Unit Progress Note Patient Name: Andrew Sifuentes Patient Facility: [facility] Admit Date 06/28/2021 Level of Care: Skilled [...] Phone 07/21/2021 11:00 AM NICOLE LIM GENER[facility] [phone] HPI: (Per Dr. Beltran) Andrew Sifuentes is being seen today for [facility] facility (SNF) admission AND management of weakness, tube feed, infected retroperitoneal infection and seizure. ? This is a 71 year old male who presents from [facility] with primary admitting diagnosis of Seizure, [...] CT brain concerning for hydrocephalus. Tip of NURSING COORDINATOR shunt was found to be in the [...] to facility records. OBJECTIVE: Labs/diagnostics: 07/01/2021 Glucose=83 Qj=950 K=4.1 Uv=681 CO2=27 BUN=22 Creatinine=0.6 KYF=923 Ca=8.7 WBC=10.8 RBC=3.40 Hgb=9.3 Hct=29.9 Dnmaxlqs=050 Vital Signs: BP 128/80 Pulse 77 Temp 36.7 ?C (98 ?F) Resp 20 Ht 182.9 cm (6') Wt 113 kg (249 lb 3.2 oz) SpO2 96% BMI 33.80 kg/m? Physical Exam: Physical Exam Vitals reviewed. Constitutional: General: He is not in acute distress. (more content not included)...[facility]02-22-2022 [facility]02-22-2022 [facility]02-21-2022 [facility]02-21-2022 Note [facility]02-20-2022 [facility] 06-26-2021 [facility]02-19-2022 [facility]02[facility]19-2022 [facility]02-18-2022 [facility]02-18-2022 [facility]02-18-2022 [facility]02-17-2022 [facility]02-17-2022 Note [facility]02-17-2022 [facility] 06-22-2021 NoteHNO ID: [id number] Author: Xiomy England RN Service: Nursing Author Type: Registered Nurse Type: Nursing Progress Note Filed: 06/22/2021 7:22 PM Note Text: RT contacted as pt has wheezing auscultated and same auditory. For prn Treatment.[facility]02-16-2022 [facility]02-16-2022 [facility]02-16-2022 [facility]02[facility]16-2022 [facility]02-16-2022 [facility]02-15-2022 [facility]02[facility]15-2022 Note [facility]02-15-2022 [facility] 06[facility]21-2021 [facility]02-14-2022 [facility]02-14-2022 [facility]02-14-2022 [facility]02-14-2022 [facility]02[facility]14-2022 [facility]02-13-2022 [facility]02-13-2022 Note [facility]02-13-2022 [facility] 06-19-2021 [facility]02-13-2022 [facility]02-12-2022 [facility]02-12-2022 [facility]02-12-2022 [facility]02-12-2022 [facility]02-12-2022 [facility]02-12-2022 Note [facility]02-12-2022 NoteHNO ID: [id number] Author: Ambar Note Service: ? Author Type: ? Type: Progress Notes Filed: 06/18/2021 3:10 AM Note Text: Epic Scheduled Downtime: 06/18/2021 1:00:00 AM to 06/18/2021 2:27:[facility]02[facility]11[facility]2022 Note [facility]02-11-2022 [facility] 06-17-2021 [facility]02[facility]11-2022 [facility]02-11-2022 [facility]02-10-2022 [facility]02-10-2022 [facility]02[facility]10-2022 [facility]02[facility]10-2022 [facility]02-10-2022 Note [facility]02-10-2022 [facility] 06-15-2021 [facility]02-09-2022 NoteHNO ID: [id number] Author: Lamonte Kline DO Service: Neurology ICU Author Type: Resident Type: Plan of Care Filed: 06/15/2021 6:21 PM Note Text: Patient's daughter Melissa updated on plan of care and critical condition, all questions answered.[facility]02-09-2022 [facility]02-09-2022 [facility]02-09-2022 [facility]02-09-2022 [facility]02-09-2022 Note [facility]02-09-2022 [facility] 06-15-2021 [facility]02-08-2022 [facility]02-08-2022 [facility]02[facility]08-2022 [facility]02-08-2022 [facility]02-07-2022 [facility]02-07-2022 [facility]02[facility]07-2022 Note [facility]02-07-2022 [facility] 06-12-20[facility]02-05-2022 [facility]02[facility]05-2022 [facility]02-04-2022 [facility]02-04-2022 [facility]02-04-2022 Note [facility]02-04-2022 [facility] 06-09-2021 [facility]02-03-2022 [facility]02-03-2022 [facility]02-03-2022 [facility]02-02-2022 [facility]02-02-2022 NoteHNO ID: [id number] Author: Luis Diaz RN Service: ? Author Type: Registered Nurse Type: Nursing Progress Note Filed: 06/08/2021 9:23 AM Note Text: Patient off the floor to OR at this time.[facility]02-02-2022 [facility]02-02-2022 [facility] 06-08-2021 NoteHNO ID: [id number] Author: Eloise Samuel RN Service: ? Author Type: Registered Nurse Type: Nursing Progress Note Filed: 06/08/2021 12:46 AM Note Text: Dr. Brito notified of changes throughout shift. No new [facility] 06-07-2021 NoteHNO ID: [id number] Author: Eloise Samuel RN Service: ? Author Type: Registered Nurse Type: Nursing Progress Note Filed: 06/07/2021 8:01 PM Note Text: Neuro surg GENERAL INSPECTOR notified of downward deviation of pupils. No new orders at this time.[facility]02-01-2022 [facility]02-01-2022 [facility]02-01-2022 [facility]02-01-2022 [facility]01-31-2022 [facility]01-31-2022 [facility]01-31-2022 Note [facility]01-31-2022 [facility] 06-05-2021 [facility]01-30-2022 [facility]01-30-2022 [facility]01-29-2022 [facility]01-29-2022 NoteHNO ID: [id number] Author: Jermaine Miller PA-C Service: Neurosurgery Author Type: Physician Recorder [employer] Type: Plan of Care Filed: 06/04/2021 1:59 PM Note Text: Discussed with Dr. Charles CT brain results. At this time, [facility] EVD at [facility]01[facility]29[facility]2022 [facility] 06-04-2021 [facility]01-28-2022 [facility]01-28-2022 NoteHNO ID: [id number] Author: Mauricio Frank DO Service: Neurology ICU Author Type: Physician Type: Plan of Care Filed: 06/03/2021 2:38 PM Note Text: I spoke with Melissa and updated her over the phone. Mauricio Frank, [facility]01-28-2022 [facility]01-28-2022 [facility]01-27-2022 [facility]01-27-2022 [facility]01-27-2022 Note [facility]01-26-2022 [facility] 06-01-2021 [facility]01-26-2022 [facility]01-26-2022 [facility]01-26-2022 [facility]01-25-2022 [facility]01[facility]25-2022 [facility]01-25-2022 [facility]01-25-2022 Note [facility]01-25-2022 [facility] 05-31-2021 [facility] Leg swelling- Primary Swelling [...] Work Phone: Evaluation noteNo assessment information available [facility] Work Phone: Evaluation note* Diagnosis Other [...] tract symptoms (LUTS) [facility] Diagnosis Left flank pain Abdominal pain, unspecified site Calculus of ureter [facility] Diagnosis Left flank pain- Primary Abdominal pain, unspecified site BPH with urinary obstruction Hypertrophy of prostate with urinary obstruction and other lower urinary tract symptoms (LUTS) History of kidney stones documented [facility]* Name Dates Details Instructions not documented [facility]-Fncdjyhsac-Dqxfv Work Phone: Instructions* Name Dates Details Instructions not documented [facility] [address] [place] Work Phone: Reason for referral (narrative)No reason for referral information availableWhite Hospital Work Phone: Advance Directives No Advanced Directives Records FoundDocuments on File Type Date Recorded Patient Education Assistant Expl anation Advance Directives and Living Will Power of Power Project Manager Documents on File Type Date Recorded Patient Education Assistant Expl anation Advance Directive(s) 06/02/2021 2:45 [...] Maker Relationship: 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 Adult Children (business banking representative) Documents on File Type Date Recorded Patient Education Assistant Expl anation ACP-Advance Directive ACP-Power of Power Project Manager Latest Code Status on File Code Status Date Activated Date Inactivated Comments Full Code 10/21/2021 4:09 AM Healthcare Agents on File Name Relationship Healthcare Agent Relationshi p Communication Melissakb Dengyer Child Primary Decision Maker deann Gurpreet Child Secondary Decision Maker Documents on File Type Date Recorded Patient Education Assistant Expl anation ACP-Advance Directive ACP-Power of Power Project Manager ACP-Do Not Resuscitate 11/01/2021 7:03 AM Latest Code Status on File Code Status Date Activated Date Inactivated Comments Full Code 10/21/2021 4:09 AM 10/29/2021 7:25 PM Healthcare Agents on File Name Relationship Healthcare Agent Relationshi p Communication Melissakb Dengyer Child Primary Decision Maker deann Gurpreet Child Secondary Decision Maker Documents on File Type Date Recorded Patient Education Assistant Expl anation ACP-Do Not Resuscitate 11/03/2021 10:15 AM ACP-Do Not Resuscitate 11/01/2021 7:03 AM Healthcare Agents on File Name Relationship Healthcare Agent Relationshi p Communication Melissa Gurpreet Child Primary Decision Maker deann Gurpreet Child Secondary Decision Maker Documents on File Type Date Recorded Patient Education Assistant Expl anation ACP-Do Not Resuscitate 11/03/2021 [...] Documents on File Type Date Recorded Patient Education Assistant Expl anation DNR (Do Not Resuscitate) 10/31/2021 DNR (Do Not Resuscitate) 10/21/2021 Documents on File Type Date Recorded Patient Education Assistant Expl anation DNR (Do Not Resuscitate) [...] WORK LABWORK Chief Complaint LAB WORK LABWORK RESIDENTIAL LAB WORK RESIDENTIAL LABWORK Chief Complaint LAB WORK LABWORK RESIDENTIAL LAB WORK RESIDENTIAL LABWORK LABWORK LABWORK RESIDENTIAL LAB WORK RESIDENTIAL LABWORK RESIDENTIAL LAB WORK LABWORK RESIDENTIAL LAB WORK LABWORK RESIDENTIAL LABWORK Chief Complaint LAB WORK LABWORK RESIDENTIAL LAB WORK RESIDENTIAL LABWORK LABWORK LABWORK RESIDENTIAL LAB WORK RESIDENTIAL LABWORK RESIDENTIAL LAB WORK LABWORK RESIDENTIAL LAB WORK LABWORK RESIDENTIAL LABWORK RESIDENTIAL LABWORK LABWORK Chief Complaint LAB WORK LABWORK RESIDENTIAL LAB WORK RESIDENTIAL LABWORK LABWORK LABWORK RESIDENTIAL LAB WORK RESIDENTIAL LABWORK RESIDENTIAL LAB WORK LABWORK RESIDENTIAL LAB WORK LABWORK RESIDENTIAL LABWORK RESIDENTIAL LABWORK LABWORK RESIDENTIAL LAB WORK Chief Complaint LABWORK RESIDENTIAL LAB WORK RESIDENTIAL LABWORK LABWORK LABWORK RESIDENTIAL LAB WORK RESIDENTIAL LABWORK RESIDENTIAL LAB WORK LABWORK RESIDENTIAL LAB WORK LABWORK RESIDENTIAL LABWORK RESIDENTIAL LABWORK LABWORK LABWORK RESIDENTIAL LAB WORK Chief Complaint LABWORK RESIDENTIAL LAB WORK RESIDENTIAL LABWORK LABWORK LABWORK RESIDENTIAL LAB WORK RESIDENTIAL LABWORK RESIDENTIAL LAB WORK LABWORK RESIDENTIAL LAB WORK LABWORK RESIDENTIAL LABWORK RESIDENTIAL LABWORK LABWORK LABWORK RESIDENTIAL LAB WORK LABWORK RESIDENTIAL LABWORK RESIDENTIAL LAB WORK RESIDENTIAL LABWORK Chief Complaint RESIDENTIAL LAB WOR K RESIDENTIAL LABWORK LABWORK LABWORK RESIDENTIAL LAB WORK RESIDENTIAL LABWORK RESIDENTIAL LAB WORK LABWORK RESIDENTIAL LAB WORK LABWORK RESIDENTIAL LABWORK RESIDENTIAL LABWORK LABWORK LABWORK RESIDENTIAL LAB WORK LABWORK RESIDENTIAL LABWORK RESIDENTIAL LAB WORK RESIDENTIAL LABWORK RESIDENTIAL LAB WORK Chief Complaint RESIDENTIAL LABWORK LABWORK LABWORK RESIDENTIAL LAB WORK RESIDENTIAL LABWORK RESIDENTIAL LAB WORK LABWORK RESIDENTIAL LAB WORK LABWORK RESIDENTIAL LABWORK RESIDENTIAL LABWORK LABWORK LABWORK RESIDENTIAL LAB WORK LABWORK RESIDENTIAL LABWORK RESIDENTIAL LAB WORK RESIDENTIAL LABWORK LABWORK RESIDENTIAL LAB WORK Chief Complaint RESIDENTIAL LAB WOR K RESIDENTIAL LABWORK RESIDENTIAL LAB WORK LABWORK RESIDENTIAL LAB WORK LABWORK RESIDENTIAL LABWORK RESIDENTIAL LABWORK LABWORK LABWORK RESIDENTIAL LAB WORK LABWORK RESIDENTIAL LABWORK RESIDENTIAL LAB WORK RESIDENTIAL LABWORK LABWORK LABWORK RESIDENTIAL LAB WORK RESIDENTIAL PATIENT RESIDENTIAL LABWORK RESIDENTIAL LABWORK Chief Complaint LABWORK RESIDENTIAL LAB WORK LABWORK RESIDENTIAL LABWORK RESIDENTIAL LABWORK LABWORK LABWORK RESIDENTIAL LAB WORK LABWORK RESIDENTIAL LABWORK RESIDENTIAL LAB WORK RESIDENTIAL LABWORK LABWORK LABWORK RESIDENTIAL LAB WORK RESIDENTIAL PATIENT RESIDENTIAL LABWORK RESIDENTIAL LABWORK RESIDENTIAL LAB WORK Chief Complaint LABWORK RESIDENTIAL LABWORK RESIDENTIAL LABWORK LABWORK LABWORK RESIDENTIAL LAB WORK LABWORK RESIDENTIAL LABWORK RESIDENTIAL LAB WORK RESIDENTIAL LABWORK LABWORK LABWORK RESIDENTIAL LAB WORK RESIDENTIAL PATIENT RESIDENTIAL LABWORK RESIDENTIAL LABWORK RESIDENTIAL LAB WORK RESIDENTIAL LAB WORK RESIDENTIAL LAB WORK Chief Complaint LABWORK LABWORK RESIDENTIAL LAB WORK RESIDENTIAL PATIENT RESIDENTIAL LABWORK RESIDENTIAL LABWORK RESIDENTIAL LAB WORK RESIDENTIAL LAB WORK RESIDENTIAL LAB WORK RESIDENTIAL LABWORK RESIDENTIAL LABWORK LABWORK RESIDENTIAL LAB WORK LABWORK Chief Complaint RESIDENTIAL LAB WOR K RESIDENTIAL PATIENT RESIDENTIAL LABWORK RESIDENTIAL LABWORK RESIDENTIAL LAB WORK RESIDENTIAL LAB WORK RESIDENTIAL LAB WORK RESIDENTIAL LABWORK RESIDENTIAL LABWORK LABWORK RESIDENTIAL LAB WORK LABWORK RESIDENTIAL LABWORK Chief Complaint RESIDENTIAL PATIENT RESIDENTIAL LABWORK RESIDENTIAL LABWORK RESIDENTIAL LAB WORK RESIDENTIAL LAB WORK RESIDENTIAL LAB WORK RESIDENTIAL LABWORK RESIDENTIAL LABWORK LABWORK RESIDENTIAL LAB WORK LABWORK RESIDENTIAL LABWORK RESIDENTIAL LABWORK Chief Complaint RESIDENTIAL LABWORK RESIDENTIAL LAB WORK RESIDENTIAL LAB WORK RESIDENTIAL LAB WORK RESIDENTIAL LABWORK RESIDENTIAL LABWORK LABWORK RESIDENTIAL LAB WORK LABWORK RESIDENTIAL LABWORK RESIDENTIAL LABWORK RESIDENTIAL LABWORK Chief Complaint RESIDENTIAL LABWORK RESIDENTIAL LAB WORK RESIDENTIAL LAB WORK RESIDENTIAL LAB WORK RESIDENTIAL LABWORK RESIDENTIAL LABWORK LABWORK RESIDENTIAL LAB WORK LABWORK RESIDENTIAL LABWORK RESIDENTIAL LABWORK RESIDENTIAL LABWORK RESIDENTIAL LABWORK Chief Complaint RESIDENTIAL LABWORK LABWORK RESIDENTIAL LAB WORK LABWORK RESIDENTIAL LABWORK RESIDENTIAL LABWORK RESIDENTIAL LABWORK RESIDENTIAL LABWORK RESIDENTIAL LABWORK LABWORK RESIDENTIAL LABWORK Chief Complaint LABWORK RESIDENTIAL LAB WORK LABWORK RESIDENTIAL LABWORK RESIDENTIAL LABWORK RESIDENTIAL LABWORK RESIDENTIAL LABWORK RESIDENTIAL LABWORK LABWORK LABWORK RESIDENTIAL LABWORK RESIDENTIAL LAB WORK RESIDENTIAL LABWORK RESIDENTIAL LAB WORK Chief Complaint LABWORK RESIDENTIAL LAB WORK LABWORK RESIDENTIAL LABWORK RESIDENTIAL LABWORK RESIDENTIAL LABWORK RESIDENTIAL LABWORK RESIDENTIAL LABWORK LABWORK LABWORK RESIDENTIAL LABWORK RESIDENTIAL LAB WORK RESIDENTIAL LABWORK RESIDENTIAL LAB WORK RESIDENTIAL LABWORK Chief Complaint LABWORK RESIDENTIAL LAB WORK LABWORK RESIDENTIAL LABWORK RESIDENTIAL LABWORK RESIDENTIAL LABWORK RESIDENTIAL LABWORK RESIDENTIAL LABWORK LABWORK LABWORK RESIDENTIAL LABWORK RESIDENTIAL LAB WORK RESIDENTIAL LABWORK RESIDENTIAL LAB WORK RESIDENTIAL LABWORK LABWORK Chief Complaint RESIDENTIAL LABWORK RESIDENTIAL LABWORK RESIDENTIAL LABWORK RESIDENTIAL LABWORK RESIDENTIAL LABWORK LABWORK LABWORK RESIDENTIAL LABWORK RESIDENTIAL LAB WORK RESIDENTIAL LABWORK RESIDENTIAL LAB WORK RESIDENTIAL LABWORK LABWORK RESIDENTIAL LABWORK Chief Complaint RESIDENTIAL LABWORK RESIDENTIAL LABWORK RESIDENTIAL LABWORK RESIDENTIAL LABWORK RESIDENTIAL LABWORK LABWORK LABWORK RESIDENTIAL LABWORK RESIDENTIAL LAB WORK RESIDENTIAL LABWORK RESIDENTIAL LAB WORK RESIDENTIAL LABWORK LABWORK RESIDENTIAL LABWORK LABWORK Chief Complaint RESIDENTIAL LABWORK LABWORK LABWORK RESIDENTIAL LABWORK RESIDENTIAL LAB WORK RESIDENTIAL LABWORK RESIDENTIAL LAB WORK RESIDENTIAL LABWORK LABWORK RESIDENTIAL LABWORK LABWORK RESIDENTIAL LAB WORK RESIDENTIAL LAB WORK RESIDENTIAL LABWORK Chief Complaint LABWORK RESIDENTIAL LABWORK LABWORK RESIDENTIAL LAB WORK RESIDENTIAL LAB WORK RESIDENTIAL LABWORK RESIDENTIAL LABWORK RESIDENTIAL LAB WORK RESIDENTIAL LAB WORK RESIDENTIAL LAB WORK LABWORK RESIDENTIAL LABWORK Chief Complaint RESIDENTIAL LAB WOR K RESIDENTIAL LAB WORK RESIDENTIAL LABWORK RESIDENTIAL LABWORK RESIDENTIAL LAB WORK RESIDENTIAL LAB WORK RESIDENTIAL LAB WORK LABWORK RESIDENTIAL LABWORK LABWORK RESIDENTIAL LAB WORK RESIDENTIAL LAB WORK Chief Complaint RESIDENTIAL LAB WOR K RESIDENTIAL LABWORK RESIDENTIAL LABWORK RESIDENTIAL LAB WORK RESIDENTIAL LAB WORK RESIDENTIAL LAB WORK LABWORK RESIDENTIAL LABWORK LABWORK RESIDENTIAL LAB WORK RESIDENTIAL LAB WORK Chief Complaint RESIDENTIAL LABWORK RESIDENTIAL LABWORK RESIDENTIAL LAB WORK RESIDENTIAL LAB WORK RESIDENTIAL LAB WORK LABWORK RESIDENTIAL LABWORK LABWORK RESIDENTIAL LAB WORK RESIDENTIAL LAB WORK RESIDENTIAL LABWORK LABWORK LABWORK Chief Complaint RESIDENTIAL LAB WOR K RESIDENTIAL LAB WORK RESIDENTIAL LAB WORK LABWORK RESIDENTIAL LABWORK LABWORK RESIDENTIAL LAB WORK RESIDENTIAL LAB WORK RESIDENTIAL LABWORK LABWORK LABWORK LABWORK LABWORK LABWORK Chief Complaint RESIDENTIAL LAB WOR K LABWORK RESIDENTIAL LABWORK LABWORK RESIDENTIAL LAB WORK RESIDENTIAL LAB WORK RESIDENTIAL LABWORK LABWORK LABWORK LABWORK LABWORK RESIDENTIAL LABWORK RESIDENTIAL LAB WORK LABWORK RESIDENTIAL LAB WORK RESIDENTIAL LAB WORK Chief Complaint RESIDENTIAL LAB WOR K LABWORK RESIDENTIAL LABWORK LABWORK RESIDENTIAL LAB WORK RESIDENTIAL LAB WORK RESIDENTIAL LABWORK LABWORK LABWORK LABWORK LABWORK RESIDENTIAL LABWORK RESIDENTIAL LAB WORK LABWORK RESIDENTIAL LAB WORK RESIDENTIAL LAB WORK RESIDENTIAL LABWORK Chief Complaint RESIDENTIAL LAB WOR K RESIDENTIAL LAB WORK RESIDENTIAL LABWORK LABWORK LABWORK LABWORK LABWORK RESIDENTIAL LABWORK RESIDENTIAL LAB WORK LABWORK RESIDENTIAL LAB WORK RESIDENTIAL LAB WORK RESIDENTIAL LABWORK NUSING HOME LAB WORK Chief Complaint RESIDENTIAL LAB WOR K RESIDENTIAL LABWORK LABWORK LABWORK LABWORK LABWORK RESIDENTIAL LABWORK RESIDENTIAL LAB WORK LABWORK RESIDENTIAL LAB WORK RESIDENTIAL LAB WORK RESIDENTIAL LABWORK NUSING HOME LAB WORK LABWORK Chief Complaint RESIDENTIAL LAB WOR K RESIDENTIAL LABWORK LABWORK LABWORK LABWORK LABWORK RESIDENTIAL LABWORK RESIDENTIAL LAB WORK LABWORK RESIDENTIAL LAB WORK RESIDENTIAL LAB WORK RESIDENTIAL LABWORK NUSING HOME LAB WORK RESIDENTIAL LABWORK LABWORK Chief Complaint LABWORK RESIDENTIAL LAB WORK RESIDENTIAL LAB WORK RESIDENTIAL LABWORK NUSING HOME LAB WORK RESIDENTIAL LABWORK LABWORK RESIDENTIAL LABWORK RESIDENTIAL LAB WORK LABWORK LABWORK Chief Complaint NUSING HOME LAB WORK RESIDENTIAL LABWORK LABWORK RESIDENTIAL LABWORK RESIDENTIAL LAB WORK LABWORK RESIDENTIAL LAB WORK LABWORK LABWORK Chief Complaint NUSING HOME LAB WORK RESIDENTIAL LABWORK LABWORK RESIDENTIAL LABWORK RESIDENTIAL LAB WORK LABWORK RESIDENTIAL LAB WORK LABWORK RESIDENTIAL LAB WORK LABWORK Chief Complaint RESIDENTIAL LABWORK LABWORK RESIDENTIAL LABWORK RESIDENTIAL LAB WORK LABWORK RESIDENTIAL LAB WORK LABWORK RESIDENTIAL LAB WORK LABWORK LABWORK Chief Complaint RESIDENTIAL LABWORK LABWORK RESIDENTIAL LABWORK RESIDENTIAL LAB WORK LABWORK RESIDENTIAL LAB WORK LABWORK RESIDENTIAL LAB WORK LABWORK LABWORK LABWORK Chief Complaint RESIDENTIAL LABWORK LABWORK RESIDENTIAL LABWORK RESIDENTIAL LAB WORK LABWORK RESIDENTIAL LAB WORK LABWORK RESIDENTIAL LAB WORK LABWORK LABWORK LABWORK LABWORK Chief Complaint RESIDENTIAL LABWORK LABWORK RESIDENTIAL LABWORK RESIDENTIAL LAB WORK LABWORK RESIDENTIAL LAB WORK LABWORK RESIDENTIAL LAB WORK LABWORK LABWORK RESIDENTIAL LAB WORK LABWORK LABWORK LABWORK Chief Complaint LABWORK RESIDENTIAL LABWORK RESIDENTIAL LAB WORK LABWORK RESIDENTIAL LAB WORK LABWORK RESIDENTIAL LAB WORK LABWORK LABWORK RESIDENTIAL LAB WORK LABWORK LABWORK LABWORK LABWORK LABWORK LABWORK LABWORK Chief Complaint RESIDENTIAL LABWORK RESIDENTIAL LAB WORK LABWORK RESIDENTIAL LAB WORK LABWORK RESIDENTIAL LAB WORK LABWORK LABWORK RESIDENTIAL LAB WORK LABWORK LABWORK LABWORK LABWORK LABWORK LABWORK LABWORK LABWORK Chief Complaint LABWORK RESIDENTIAL LAB WORK LABWORK RESIDENTIAL LAB WORK LABWORK LABWORK RESIDENTIAL LAB WORK LABWORK LABWORK LABWORK LABWORK LABWORK LABWORK LABWORK LABWORK LABWORK Chief Complaint RESIDENTIAL LABWORK LABWORK LABWORK LABWORK LABWORK RESIDENTIAL LABWORK RESIDENTIAL LAB WORK LABWORK RESIDENTIAL LAB WORK RESIDENTIAL LAB WORK RESIDENTIAL LABWORK NUSING HOME LAB WORK RESIDENTIAL LABWORK LABWORK RESIDENTIAL LABWORK RESIDENTIAL LAB WORK Chief Complaint Admit Date RESIDENTIAL LAB WORK March 13, 2024 5:00am LABWORK March 14, 2024 5 :00am RESIDENTIAL LAB WORK March 17 5:00am RESIDENTIAL LAB WORK March 18 5:00am RESIDENTIAL LAB WORK March 19 4:00am RESIDENTIAL LAB WORK March 20 5:00am RESIDENTIAL LAB WORK March 24 5:00am RESIDENTIAL LAB WORK March 27 5:00am LABWORK March 31, 2024 5:00am RESIDENTIAL LAB WORK April 04 5:00am LABWORK April 07, 2024 5 :00am RESIDENTIAL LAB WORK April 10, 2024 5:00am RESIDENTIAL LAB WORK April 14, 2024 5:00am RESIDENTIAL LAB WORK April 17 5:00am LABWORK April 21, 2024 5:00am RESIDENTIAL LAB WORK April 24 4:00am LABWORK April 28, 2024 5:00am RESIDENTIAL LAB WORK May 01 4:00am RESIDENTIAL LAB WORK May 05 4 5:00am RESIDENTIAL LAB WORK May 08, 2024 5:00am RESIDENTIAL LAB WORK May 09, 2024 4:00am LABWORK May 12, 2024 5: 00am RESIDENTIAL LAB WORK May 15, 2024 5:00am RESIDENTIAL LAB WORK May 19, 2024 4:00am RESIDENTIAL LAB WORK May 20, 2024 5:00am RESIDENTIAL LAB WORK May 22, 2024 5:00am LABWORK May 26, 2024 5 :00am RESIDENTIAL LAB WORK May 29, 2024 5:00am RESIDENTIAL LAB WORK June 02, 2024 5:00am RESIDENTIAL LAB WORK June 05, 2024 5:00am LABWORK June 09, 2024 5 :00am RESIDENTIAL LAB WORK June 12, 2024 5:00am RESIDENTIAL LAB WORK June 16 5:00am RESIDENTIAL LAB WORK June 19 5:00am LABWORK June 23, 2024 5:00am RESIDENTIAL LAB WORK June 26 5:00am RESIDENTIAL LAB WORK June 30 5:00am Chief Complaint Admit Date LABWORK April 07, 2024 5 :00am RESIDENTIAL LAB WORK April 10, 2024 5:00am RESIDENTIAL LAB WORK April 14, 2024 5:00am RESIDENTIAL LAB WORK April 17 5:00am LABWORK April 21, 2024 5:00am RESIDENTIAL LAB WORK April 24 4:00am LABWORK April 28, 2024 5:00am RESIDENTIAL LAB WORK May 01 4:00am RESIDENTIAL LAB WORK May 05 5:00am RESIDENTIAL LAB WORK May 08, 2024 5:00am RESIDENTIAL LAB WORK May 09, 2024 4:00am LABWORK May 12, 2024 5: 00am RESIDENTIAL LAB WORK May 15, 2024 5:00am RESIDENTIAL LAB WORK May 19, 2024 4:00am RESIDENTIAL LAB WORK May 20, 2024 5:00am RESIDENTIAL LAB WORK May 22, 2024 5:00am LABWORK May 26, 2024 5 :00am RESIDENTIAL LAB WORK May 29, 2024 5:00am RESIDENTIAL LAB WORK June 02, 2024 5:00am RESIDENTIAL LAB WORK June 05, 2024 5:00am LABWORK June 09, 2024 5 :00am RESIDENTIAL LAB WORK June 12, 2024 5:00am RESIDENTIAL LAB WORK June 16 5:00am RESIDENTIAL LAB WORK June 19 5:00am LABWORK June 23, 2024 5:00am RESIDENTIAL LAB WORK June 26 5:00am RESIDENTIAL LAB WORK June 30 5:00am RESIDENTIAL LAB WORK February 27th, 202 5 5:00am RESIDENTIAL LAB WORK July 07, 2024 4: 00am LABWORK July 11, 2024 5:00 am LABWORK July 14, 2024 5:0 0am RESIDENTIAL LAB WORK July 17, 2024 4 :00am RESIDENTIAL LAB WORK July 24, 2024 4 :00am Chief Complaint Admit Date RESIDENTIAL LAB WORK April 14, 2024 5:00am RESIDENTIAL LAB WORK April 17 5:00am LABWORK April 21, 2024 5:00am RESIDENTIAL LAB WORK April 24 4:00am LABWORK April 28, 2024 5:00am RESIDENTIAL LAB WORK May 01 4:00am RESIDENTIAL LAB WORK May 05 5:00am RESIDENTIAL LAB WORK May 08, 2024 5:00am RESIDENTIAL LAB WORK May 09, 2024 4:00am LABWORK May 12, 2024 5: 00am RESIDENTIAL LAB WORK May 15, 2024 5:00am RESIDENTIAL LAB WORK May 19, 2024 4:00am RESIDENTIAL LAB WORK May 20, 2024 5:00am RESIDENTIAL LAB WORK May 22, 2024 5:00am LABWORK May 26, 2024 5 :00am RESIDENTIAL LAB WORK May 29, 2024 5:00am RESIDENTIAL LAB WORK June 02, 2024 5:00am RESIDENTIAL LAB WORK June 05, 2024 5:00am LABWORK June 09, 2024 5 :00am RESIDENTIAL LAB WORK June 12, 2024 5:00am RESIDENTIAL LAB WORK June 16 5:00am RESIDENTIAL LAB WORK June 19 5:00am LABWORK June 23, 2024 5:00am RESIDENTIAL LAB WORK June 26 5:00am RESIDENTIAL LAB WORK June 30 5:00am RESIDENTIAL LAB WORK July 03 5:00am RESIDENTIAL LAB WORK July 07, 2024 4: 00am LABWORK July 11, 2024 5:00 am LABWORK July 14, 2024 5:0 0am RESIDENTIAL LAB WORK July 17, 2024 4 :00am RESIDENTIAL LAB WORK July 24, 2024 4 :00am LABWORK July 25, 2024 5:0 0am Chief Complaint Admit Date RESIDENTIAL LAB WORK April 14, 2024 5:00am RESIDENTIAL LAB WORK April 17 5:00am LABWORK April 21, 2024 5:00am RESIDENTIAL LAB WORK April 24 4:00am LABWORK April 28, 2024 5:00am RESIDENTIAL LAB WORK May 01 4:00am RESIDENTIAL LAB WORK May 05 5:00am RESIDENTIAL LAB WORK May 08, 2024 5:00am RESIDENTIAL LAB WORK May 09, 2024 4:00am LABWORK May 12, 2024 5: 00am RESIDENTIAL LAB WORK May 15, 2024 5:00am RESIDENTIAL LAB WORK May 19, 2024 4:00am RESIDENTIAL LAB WORK May 20, 2024 5:00am RESIDENTIAL LAB WORK May 22, 2024 5:00am LABWORK May 26, 2024 5 :00am RESIDENTIAL LAB WORK May 29, 2024 5:00am RESIDENTIAL LAB WORK June 02, 2024 5:00am RESIDENTIAL LAB WORK June 05, 2024 5:00am LABWORK June 09, 2024 5 :00am RESIDENTIAL LAB WORK June 12, 2024 5:00am RESIDENTIAL LAB WORK June 16 5:00am RESIDENTIAL LAB WORK June 19 5:00am LABWORK June 23, 2024 5:00am RESIDENTIAL LAB WORK June 26 5:00am RESIDENTIAL LAB WORK June 30 5:00am RESIDENTIAL LAB WORK July 03 5:00am RESIDENTIAL LAB WORK July 07, 2024 4: 00am LABWORK July 11, 2024 5:00 am LABWORK July 14, 2024 5:0 0am RESIDENTIAL LAB WORK July 17, 2024 4 :00am RESIDENTIAL LAB WORK July 21, 2024 5 :00am RESIDENTIAL LAB WORK July 24, 2024 4 :00am LABWORK July 25, 2024 5:0 0am RESIDENTIAL LAB WORK July 31, 2024 4 :00am Chief Complaint Admit Date RESIDENTIAL LAB WORK April 17 5:00am LABWORK April 21, 2024 5:00am RESIDENTIAL LAB WORK April 24 4:00am LABWORK April 28, 2024 5:00am RESIDENTIAL LAB WORK May 01 4:00am RESIDENTIAL LAB WORK May 05 5:00am RESIDENTIAL LAB WORK May 08, 2024 5:00am RESIDENTIAL LAB WORK May 09, 2024 4:00am LABWORK May 12, 2024 5: 00am RESIDENTIAL LAB WORK May 15, 2024 5:00am RESIDENTIAL LAB WORK May 19, 2024 4:00am RESIDENTIAL LAB WORK May 20, 2024 5:00am RESIDENTIAL LAB WORK May 22, 2024 5:00am LABWORK May 26, 2024 5 :00am RESIDENTIAL LAB WORK May 29, 2024 5:00am RESIDENTIAL LAB WORK June 02, 2024 5:00am RESIDENTIAL LAB WORK June 05, 2024 5:00am LABWORK June 09, 2024 5 :00am RESIDENTIAL LAB WORK June 12, 2024 5:00am RESIDENTIAL LAB WORK June 16 5:00am RESIDENTIAL LAB WORK June 19 5:00am LABWORK June 23, 2024 5:00am RESIDENTIAL LAB WORK June 26 5:00am RESIDENTIAL LAB WORK June 30 5:00am RESIDENTIAL LAB WORK July 03 5:00am RESIDENTIAL LAB WORK July 07, 2024 4: 00am LABWORK July 11, 2024 5:00 am LABWORK July 14, 2024 5:0 0am RESIDENTIAL LAB WORK July 17, 2024 4 :00am RESIDENTIAL LAB WORK July 21, 2024 5 :00am RESIDENTIAL LAB WORK July 24, 2024 4 :00am LABWORK July 25, 2024 5:0 0am RESIDENTIAL LAB WORK July 28, 2024 5 :00am RESIDENTIAL LAB WORK July 31, 2024 4 :00am Chief Complaint Admit Date RESIDENTIAL LAB WORK April 24 4:00am LABWORK April 28, 2024 5:00am RESIDENTIAL LAB WORK May 01 4:00am RESIDENTIAL LAB WORK May 05 5:00am RESIDENTIAL LAB WORK May 08, 2024 5:00am RESIDENTIAL LAB WORK May 09, 2024 4:00am LABWORK May 12, 2024 5: 00am RESIDENTIAL LAB WORK May 15, 2024 5:00am RESIDENTIAL LAB WORK May 19, 2024 4:00am RESIDENTIAL LAB WORK May 20, 2024 5:00am RESIDENTIAL LAB WORK May 22, 2024 5:00am LABWORK May 26, 2024 5 :00am RESIDENTIAL LAB WORK May 29, 2024 5:00am RESIDENTIAL LAB WORK June 02, 2024 5:00am RESIDENTIAL LAB WORK June 05, 2024 5:00am LABWORK June 09, 2024 5 :00am RESIDENTIAL LAB WORK June 12, 2024 5:00am RESIDENTIAL LAB WORK June 16 5:00am RESIDENTIAL LAB WORK June 19 5:00am LABWORK June 23, 2024 5:00am RESIDENTIAL LAB WORK June 26 5:00am RESIDENTIAL LAB WORK June 30 5:00am RESIDENTIAL LAB WORK July 03 5:00am RESIDENTIAL LAB WORK July 07, 2024 4: 00am LABWORK July 11, 2024 5:00 am LABWORK July 14, 2024 5:0 0am RESIDENTIAL LAB WORK July 17, 2024 4 :00am RESIDENTIAL LAB WORK July 21, 2024 5 :00am RESIDENTIAL LAB WORK July 24, 2024 4 :00am LABWORK July 25, 2024 5:0 0am RESIDENTIAL LAB WORK July 28, 2024 5 :00am RESIDENTIAL LAB WORK July 31, 2024 4 :00am LABWORK August 04, 2024 5:0 0am Chief Complaint Admit Date RESIDENTIAL LAB WORK May 15, 2024 5:00am RESIDENTIAL LAB WORK May 19, 2024 4:00am RESIDENTIAL LAB WORK May 20, 2024 5:00am RESIDENTIAL LAB WORK May 22, 2024 5:00am LABWORK May 26, 2024 5 :00am RESIDENTIAL LAB WORK May 29, 2024 5:00am RESIDENTIAL LAB WORK June 02, 2024 5:00am RESIDENTIAL LAB WORK June 05, 2024 5:00am LABWORK June 09, 2024 5 :00am RESIDENTIAL LAB WORK June 12, 2024 5:00am RESIDENTIAL LAB WORK June 16 5:00am RESIDENTIAL LAB WORK June 19 5:00am LABWORK June 23, 2024 5:00am RESIDENTIAL LAB WORK June 26 5:00am RESIDENTIAL LAB WORK June 30 5:00am RESIDENTIAL LAB WORK July 03 5:00am RESIDENTIAL LAB WORK July 07, 2024 4: 00am LABWORK July 11, 2024 5:00 am LABWORK July 14, 2024 5:0 0am RESIDENTIAL LAB WORK July 17, 2024 4 :00am RESIDENTIAL LAB WORK July 21, 2024 5 :00am RESIDENTIAL LAB WORK July 24, 2024 4 :00am LABWORK July 25, 2024 5:0 0am RESIDENTIAL LAB WORK July 28, 2024 5 :00am RESIDENTIAL LAB WORK July 31, 2024 4 :00am LABWORK August 04, 2024 5:0 0am LABWORK August 07, 2024 5:00 am RESIDENTIAL LAB WORK August 11, 2024 5: 00am RESIDENTIAL LAB WORK August 14, 2024 5 :00am RESIDENTIAL LAB WORK August 18, 2024 5 :00am Chief Complaint Admit Date RESIDENTIAL LAB WORK May 20, 2024 5:00am RESIDENTIAL LAB WORK May 22, 2024 5:00am LABWORK May 26, 2024 5 :00am RESIDENTIAL LAB WORK May 29, 2024 5:00am RESIDENTIAL LAB WORK June 02, 2024 5:00am RESIDENTIAL LAB WORK June 05, 2024 5:00am LABWORK June 09, 2024 5 :00am RESIDENTIAL LAB WORK June 12, 2024 5:00am RESIDENTIAL LAB WORK June 16 5:00am RESIDENTIAL LAB WORK June 19 5:00am LABWORK June 23, 2024 5:00am RESIDENTIAL LAB WORK June 26 5:00am RESIDENTIAL LAB WORK June 30 5:00am RESIDENTIAL LAB WORK July 03 5:00am RESIDENTIAL LAB WORK July 07, 2024 4: 00am LABWORK July 11, 2024 5:00 am LABWORK July 14, 2024 5:0 0am RESIDENTIAL LAB WORK July 17, 2024 4 :00am RESIDENTIAL LAB WORK July 21, 2024 5 :00am RESIDENTIAL LAB WORK July 24, 2024 4 :00am LABWORK July 25, 2024 5:0 0am RESIDENTIAL LAB WORK July 28, 2024 5 :00am RESIDENTIAL LAB WORK July 31, 2024 4 :00am LABWORK August 04, 2024 5:0 0am LABWORK August 07, 2024 5:00 am RESIDENTIAL LAB WORK August 11, 2024 5: 00am RESIDENTIAL LAB WORK August 14, 2024 5 :00am RESIDENTIAL LAB WORK August 18, 2024 5 :00am LABWORK August 28, 2024 5:0 0am Chief Complaint Admit Date RESIDENTIAL LAB WORK May 22, 2024 5:00am LABWORK May 26, 2024 5 :00am RESIDENTIAL LAB WORK May 29, 2024 5:00am RESIDENTIAL LAB WORK June 02, 2024 5:00am RESIDENTIAL LAB WORK June 05, 2024 5:00am LABWORK June 09, 2024 5 :00am RESIDENTIAL LAB WORK June 12, 2024 5:00am RESIDENTIAL LAB WORK June 16 5:00am RESIDENTIAL LAB WORK June 19 5:00am LABWORK June 23, 2024 5:00am RESIDENTIAL LAB WORK June 26 5:00am RESIDENTIAL LAB WORK June 30 5:00am RESIDENTIAL LAB WORK July 03 5:00am RESIDENTIAL LAB WORK July 07, 2024 4: 00am LABWORK July 11, 2024 5:00 am LABWORK July 14, 2024 5:0 0am RESIDENTIAL LAB WORK July 17, 2024 4 :00am RESIDENTIAL LAB WORK July 21, 2024 5 :00am RESIDENTIAL LAB WORK July 24, 2024 4 :00am LABWORK July 25, 2024 5:0 0am RESIDENTIAL LAB WORK July 28, 2024 5 :00am RESIDENTIAL LAB WORK July 31, 2024 4 :00am LABWORK August 04, 2024 5:0 0am LABWORK August 07, 2024 5:00 am RESIDENTIAL LAB WORK August 11, 2024 5: 00am RESIDENTIAL LAB WORK August 14, 2024 5 :00am RESIDENTIAL LAB WORK August 18, 2024 5 :00am RESIDENTIAL LAB WORK August 21, 2024 5 :00am LABWORK August 28, 2024 5:0 0am LABWORK September 01, 2024 5:0 0am Chief Complaint Admit Date RESIDENTIAL LAB WORK June 05, 2024 5:00am LABWORK June 09, 2024 5 :00am RESIDENTIAL LAB WORK June 12, 2024 5:00am RESIDENTIAL LAB WORK June 16 5:00am RESIDENTIAL LAB WORK June 19 5:00am LABWORK June 23, 2024 5:00am RESIDENTIAL LAB WORK June 26 5:00am RESIDENTIAL LAB WORK June 30 5:00am RESIDENTIAL LAB WORK July 03 5:00am RESIDENTIAL LAB WORK July 07, 2024 4: 00am LABWORK July 11, 2024 5:00 am LABWORK July 14, 2024 5:0 0am RESIDENTIAL LAB WORK July 17, 2024 4 :00am RESIDENTIAL LAB WORK July 21, 2024 5 :00am RESIDENTIAL LAB WORK July 24, 2024 4 :00am LABWORK July 25, 2024 5:0 0am RESIDENTIAL LAB WORK July 28, 2024 5 :00am RESIDENTIAL LAB WORK July 31, 2024 4 :00am LABWORK August 04, 2024 5:0 0am LABWORK August 07, 2024 5:00 am RESIDENTIAL LAB WORK August 11, 2024 5: 00am RESIDENTIAL LAB WORK August 14, 2024 5 :00am RESIDENTIAL LAB WORK August 18, 2024 5 :00am RESIDENTIAL LAB WORK August 21, 2024 5 :00am RESIDENTIAL LAB WORK August 25, 2024 4 :00am LABWORK August 28, 2024 5:0 0am LABWORK September 01, 2024 5:0 0am LABWORK September 04, 2024 5:00am Chief Complaint Admit Date RESIDENTIAL LAB WORK June 05, 2024 5:00am LABWORK June 09, 2024 5 :00am RESIDENTIAL LAB WORK June 12, 2024 5:00am RESIDENTIAL LAB WORK June 16 5:00am RESIDENTIAL LAB WORK June 19 5:00am LABWORK June 23, 2024 5:00am RESIDENTIAL LAB WORK June 26 5:00am RESIDENTIAL LAB WORK June 30 5:00am RESIDENTIAL LAB WORK July 03 5:00am RESIDENTIAL LAB WORK July 07, 2024 4: 00am LABWORK July 11, 2024 5:00 am LABWORK July 14, 2024 5:0 0am RESIDENTIAL LAB WORK July 17, 2024 4 :00am RESIDENTIAL LAB WORK July 21, 2024 5 :00am RESIDENTIAL LAB WORK July 24, 2024 4 :00am LABWORK July 25, 2024 5:0 0am RESIDENTIAL LAB WORK July 28, 2024 5 :00am RESIDENTIAL LAB WORK July 31, 2024 4 :00am LABWORK August 04, 2024 5:0 0am LABWORK August 07, 2024 5:00 am RESIDENTIAL LAB WORK August 11, 2024 5: 00am RESIDENTIAL LAB WORK August 14, 2024 5 :00am RESIDENTIAL LAB WORK August 18, 2024 5 :00am RESIDENTIAL LAB WORK August 21, 2024 5 :00am RESIDENTIAL LAB WORK August 25, 2024 4 :00am LABWORK August 28, 2024 5:0 0am LABWORK September 01, 2024 5:0 0am LABWORK September 04, 2024 5:00am LABWORK September 15, 2024 5:00a m Chief Complaint Admit Date RESIDENTIAL LAB WORK June 19 5:00am LABWORK June 23, 2024 5:00am RESIDENTIAL LAB WORK June 26 5:00am RESIDENTIAL LAB WORK June 30 5:00am RESIDENTIAL LAB WORK July 03 5:00am RESIDENTIAL LAB WORK July 07, 2024 4: 00am LABWORK July 11, 2024 5:00 am LABWORK July 14, 2024 5:0 0am RESIDENTIAL LAB WORK July 17, 2024 4 :00am RESIDENTIAL LAB WORK July 21, 2024 5 :00am RESIDENTIAL LAB WORK July 24, 2024 4 :00am LABWORK July 25, 2024 5:0 0am RESIDENTIAL LAB WORK July 28, 2024 5 :00am RESIDENTIAL LAB WORK July 31, 2024 4 :00am LABWORK August 04, 2024 5:0 0am LABWORK August 07, 2024 5:00 am RESIDENTIAL LAB WORK August 11, 2024 5: 00am RESIDENTIAL LAB WORK August 14, 2024 5 :00am RESIDENTIAL LAB WORK August 18, 2024 5 :00am RESIDENTIAL LAB WORK August 21, 2024 5 :00am RESIDENTIAL LAB WORK August 25, 2024 4 :00am LABWORK August 28, 2024 5:0 0am LABWORK September 01, 2024 5:0 0am LABWORK September 04, 2024 5:00am RESIDENTIAL LAB WORK September 08, 2024 4:00 am RESIDENTIAL LAB WORK September 11, 2024 5:00 am LABWORK September 15, 2024 5:00a m RESIDENTIAL LAB WORK September 25, 2024 5:0 0am RESIDENTIAL LAB WORK September 30, 2024 4:0 0am Chief Complaint Admit Date RESIDENTIAL LAB WORK June 12, 2024 5:00am RESIDENTIAL LAB WORK June 16 5:00am RESIDENTIAL LAB WORK June 19 5:00am LABWORK June 23, 2024 5:00am RESIDENTIAL LAB WORK June 26 5:00am RESIDENTIAL LAB WORK June 30 5:00am RESIDENTIAL LAB WORK July 03 5:00am RESIDENTIAL LAB WORK July 07, 2024 4: 00am LABWORK July 11, 2024 5:00 am LABWORK July 14, 2024 5:0 0am RESIDENTIAL LAB WORK July 17, 2024 4 :00am RESIDENTIAL LAB WORK July 21, 2024 5 :00am RESIDENTIAL LAB WORK July 24, 2024 4 :00am LABWORK July 25, 2024 5:0 0am RESIDENTIAL LAB WORK July 28, 2024 5 :00am RESIDENTIAL LAB WORK July 31, 2024 4 :00am LABWORK August 04, 2024 5:0 0am LABWORK August 07, 2024 5:00 am RESIDENTIAL LAB WORK August 11, 2024 5: 00am RESIDENTIAL LAB WORK August 14, 2024 5 :00am RESIDENTIAL LAB WORK August 18, 2024 5 :00am RESIDENTIAL LAB WORK August 21, 2024 5 :00am RESIDENTIAL LAB WORK August 25, 2024 4 :00am LABWORK August 28, 2024 5:0 0am LABWORK September 01, 2024 5:0 0am LABWORK September 04, 2024 5:00am RESIDENTIAL LAB WORK September 08, 2024 4:00 am LABWORK September 15, 2024 5:00a m Chief Complaint Admit Date RESIDENTIAL LAB WORK July 07, 2024 4: 00am LABWORK July 11, 2024 5:00 am LABWORK July 14, 2024 5:0 0am RESIDENTIAL LAB WORK July 17, 2024 4 :00am RESIDENTIAL LAB WORK July 21, 2024 5 :00am RESIDENTIAL LAB WORK July 24, 2024 4 :00am LABWORK July 25, 2024 5:0 0am RESIDENTIAL LAB WORK July 28, 2024 5 :00am RESIDENTIAL LAB WORK July 31, 2024 4 :00am LABWORK August 04, 2024 5:0 0am LABWORK August 07, 2024 5:00 am RESIDENTIAL LAB WORK August 11, 2024 5: 00am RESIDENTIAL LAB WORK August 14, 2024 5 :00am RESIDENTIAL LAB WORK August 18, 2024 5 :00am RESIDENTIAL LAB WORK August 21, 2024 5 :00am RESIDENTIAL LAB WORK August 25, 2024 4 :00am LABWORK August 28, 2024 5:0 0am LABWORK September 01, 2024 5:0 0am LABWORK September 04, 2024 5:00am RESIDENTIAL LAB WORK September 08, 2024 4:00 am RESIDENTIAL LAB WORK September 11, 2024 5:00 am LABWORK September 15, 2024 5:00a m RESIDENTIAL LAB WORK September 18, 2024 5:0 0am RESIDENTIAL LAB WORK September 22, 2024 5:0 0am RESIDENTIAL LAB WORK September 25, 2024 5:0 0am RESIDENTIAL LAB WORK September 30, 2024 4:0 0am RESIDENTIAL LAB WORK October 02, 2024 5:0 0am RESIDENTIAL LAB WORK October 09, 2024 5:0 0am Chief Complaint Admit Date RESIDENTIAL LAB WORK October 09, 2024 5:0 0am LABWORK October 13, 2024 5:00a m RESIDENTIAL LAB WORK October 16, 2024 5: 00am RESIDENTIAL LAB WORK October 20, 2024 4: 00am RESIDENTIAL LAB WORK October 23, 2024 5: 00am RESIDENTIAL LAB WORK October 27, 2024 4: 00am RESIDENTIAL LAB WORK October 30, 2024 6: 35am LABWORK November 03, 2024 5:00 am RESIDENTIAL LAB WORK November 06, 2024 4:0 0am RESIDENTIAL LAB WORK November 10, 2024 4:0 0am RESIDENTIAL LAB WORK November 13, 2024 5: 00am RESIDENTIAL LAB WORK November 17, 2024 5: 00am RESIDENTIAL LAB WORK November 20, 2024 5: 00am RESIDENTIAL LAB WORK November 24, 2024 5: 00am RESIDENTIAL LAB WORK November 27, 2024 5: 00am LABWORK November 28, 2024 5:00 am LABWORK December 01, 2024 5:00 am RESIDENTIAL LAB WORK December 02, 2024 4: 00am RESIDENTIAL LAB WORK December 04, 2024 5: 00am RESIDENTIAL LAB WORK December 08, 2024 5 :00am LABWORK December 11, 2024 6:0 0am RESIDENTIAL LAB WORK December 15, 2024 4:00am RESIDENTIAL LAB WORK December 18, 2024 5:00am RESIDENTIAL LAB WORK December 22, 2024 4:00am LABWORK December 24, 2024 5: 00am RESIDENTIAL LAB WORK December 25, 2024 5:00am RESIDENTIAL LAB WORK December 26, 2024 5:00am LABWORK December 29, 2024 5: 00am RESIDENTIAL LAB WORK January 01, 2025 5:00am RESIDENTIAL LAB WORK January 06 5:00am LABWORK January 08, 2025 5:00am RESIDENTIAL LAB WORK January 12 4:00am RESIDENTIAL LAB WORK January 15 5:00am LABWORK January 19, 2025 5:00am RESIDENTIAL LAB WORK January 26 4:00am Chief Complaint Admit Date LABWORK November 03, 2024 5:00 am RESIDENTIAL LAB WORK November 06, 2024 4:0 0am RESIDENTIAL LAB WORK November 10, 2024 4:0 0am RESIDENTIAL LAB WORK November 13, 2024 5: 00am RESIDENTIAL LAB WORK November 17, 2024 5: 00am RESIDENTIAL LAB WORK November 20, 2024 5: 00am RESIDENTIAL LAB WORK November 24, 2024 5: 00am RESIDENTIAL LAB WORK November 27, 2024 5: 00am LABWORK November 28, 2024 5:00 am LABWORK December 01, 2024 5:00 am RESIDENTIAL LAB WORK December 02, 2024 4: 00am RESIDENTIAL LAB WORK December 04, 2024 5: 00am RESIDENTIAL LAB WORK December 08, 2024 5 :00am LABWORK December 11, 2024 6:0 0am RESIDENTIAL LAB WORK December 15, 2024 4:00am RESIDENTIAL LAB WORK December 18, 2024 5:00am RESIDENTIAL LAB WORK December 22, 2024 4:00am LABWORK December 24, 2024 5: 00am RESIDENTIAL LAB WORK December 25, 2024 5:00am RESIDENTIAL LAB WORK December 26, 2024 5:00am LABWORK December 29, 2024 5: 00am RESIDENTIAL LAB WORK January 01, 2025 5:00am RESIDENTIAL LAB WORK January 06 5:00am LABWORK January 08, 2025 5:00am RESIDENTIAL LAB WORK January 12 4:00am RESIDENTIAL LAB WORK January 15 5:00am LABWORK January 19, 2025 5:00am RESIDENTIAL LAB WORK January 22 5:00am RESIDENTIAL LAB WORK January 26 4:00am RESIDENTIAL LAB WORK January 29 7:30am RESIDENTIAL LAB WORK February 02 4:00am RESIDENTIAL LAB WORK February 05, 2025 5:00am RESIDENTIAL LAB WORK February 16, 2025 4:00am Reason for Referral Specialty Diagnoses / Procedures Referred By Aki kumari Referred To Contact Urology Diagnoses Other fatigue Lanette Munguia DO [address] [place] [address] [facility] [address] [place] [id number] Referral ID Status Reason Start Date Expiration Date V isits Requested Visits Authorized [id number] Open Specialty Services Required 11/01/2021 11/01/2022 1 1 Scheduling Instructions [facility] [place] [address] Specialty Diagnoses / Procedures Referred By Aki kumari Referred To Contact IP Unit Diagnoses Heel ulceration, left, with unspecified severity (HCC) Henry Hidalgo PA [address] [place] [address] [facility] [address] [place] [address] Referral ID Status Reason Start Date Expiration Date V isits Requested Visits Authorized [id number] Open Specialty Services Required 12/22/2021 12/22/2022 1 1 Scheduling Instructions [facility] [address] [place] [address] Comments Please use the parking lot located on [employer] or [employer]. There are handicap parking spots located in a small lot beside the wound care entrance off of [employer]. Please be advised there is a small incline from those handicap spots to our main door. Bring photo ID and insurance card to photocopy. Wear loose fitting clothing (to easily access wound). Bring list of medications (or can be sent by office). Check in at Registration for your first visit. Please call us directly with any questions [phone]. We look forward to helping you heal. Specialty Diagnoses / Procedures Referred By Contdesiree t Referred To Contact Radiology Diagnoses Left flank pain Calculus of ureter Procedures CT abdomen pelvis wo IV contrast Rebecca Buck MD [address] [place] [address] Referral ID Status Reason Start Date Expiration Date V isits Requested Visits Authorized [id number] Pending Review 08/13/2023 08/12/2024 1 1 Referral ID Status Reason Start Date Expiration Date Visits Re quested Visits Authorized [id number] Closed 08/17/2023 09/16/2023 1 1 Additional Source Comments Source Comments (unrecognize d section and content) In the event this informatio n is protected by the Federal Confidentiality of Alcohol and Drug Abuse Patient Records regulations: The Federal rules restrict any use of the information to criminally investigate or prosecute any alcohol or drug abuse patient.[facility] the event this information is protected by the Federal Confidentiality of Alcohol and Drug Abuse Patient Records regulations: The Federal rules restrict any use of the information to criminally investigate or prosecute any alcohol or drug abuse patient.[facility] (unrecognized sect ion and content) No Status Records FoundNo Status Records FoundNo Status Records FoundNo Status Records FoundNo Status Records FoundNo Status Records FoundNo Status Records FoundNo Status Records FoundNo Status Records FoundNo Status Records Found INFORMATION SOURCE (unrecogn ized section and content) DATE CREATED AUTHOR 05/20/2021 [facility] DATE CREATED AUTHOR AUTHOR'S ORGANIZ ATION 06/07/2021 [facility] DATE CREATED AUTHOR AUTHOR'S ORGANIZ ATION 08/02/2021 [facility] DATE CREATED AUTHOR AUTHOR'S ORGANIZ ATION 12/09/2021 [facility] DATE CREATED AUTHOR AUTHOR'S ORGANIZ ATION 12/29/2021 [facility] DATE CREATED AUTHOR AUTHOR'S ORGANIZ ATION 02/04/2022 [facility] DATE CREATED AUTHOR AUTHOR'S ORGANIZ ATION 03/03/2022 [facility] DATE CREATED AUTHOR AUTHOR'S ORGANIZ ATION 09/15/2023 [facility] DATE CREATED AUTHOR AUTHOR'S ORGANIZ ATION 03/18/2025 [facility] Reason for Visit (unrecogniz ed section and content) Reason Comments Missed Appointment Reason Comments Leg Swelling Blood clots Reason Comments Altered Mental Status Pt presents to ED via [facility] for complaint listed. Pt is from [place] [facility]. Pt's LKW was 1000 hours today. Per EMS, pt had a - [place]. Pt denies CP, SOB, and N/V. Pt seems slow to respond, slightly confused at this time. Reason Comments Osteomyelitis Patient from [facility] did xrays on left lower leg and and have concerns for possible osteomyelitis A&Ox2 to self and place, stated year 2022 preside Miss martini Reason Comments Fall Patient had unwitnes sed fall at [facility] landed on butt. Is on thinners, [...] [address] [place] [address] Referral ID Status Reason Start Date Expiration Date Visits Re quested Visits Authorized [id number] Closed 08/17/2023 09/16/2023 1 1 Reason Comments [...] Status: Inactive Member Role Status Dates Dr. oMnika Staley [...] Status Dates Carlos NOVAK Attending Provider Active Automobile Technician Relationship Specialty Start Date End Date Mateus Burris [address] [place] [address] PCP - General Family Practice 11/12/19 Automobile Technician Relationship Specialty [place] [address] [place] [address] PCP - General Family Medicine 09/09/20 Automobile Technician Relationship Specialty [place] [address] [place] [address] PCP - General Family Medicine 09/09/20 Automobile Technician Relationship Specialty [place] [address] [place] [address] PCP - General Family Medicine 09/09/20 Automobile Technician Relationship Specialty Start Date End Date Carlos Cavazos MD [address] [place] [address] PCP - General Internal Medicine 02/20/22 Team [...] Monika Staley MD Primary Care Provider Active Automobile Technician Relationship Specialty Start Date End Date Carlos Cavazos [address] [place] [phone] PCP - General 12/21/21 Rebecca Buck MD [address] [place] [address] Surgeon Urology 06/25/23 Team Status: Inactive Member [...] NOVAK Attending Provider, Referring Provi lupillo Active Automobile Technician Relationship Specialty Start Date End Date Carlos Cavazos [address] [place] [phone] PCP - General 12/21/21 Rebecca Buck MD [address] [address] Surgeon Urology 06/25/23 Automobile Technician Relationship Specialty Start Date End Date Carlos Cavazos [address] [place] [phone] PCP - General 12/21/21 Rebecca Buck MD [address] [address] Surgeon Urology 06/25/23 Automobile Technician Relationship Specialty Start Date End Date Carlos Cavazos [address] [place] [phone] PCP - General 12/21/21 Rebecca Buck MD [address] [address] Surgeon Urology 06/25/23 Automobile Technician Relationship Specialty Start Date End Date Carlos Cavazos [address] [place] [phone] PCP - General 12/21/21 Rebecca Buck MD [address] [address] Surgeon Urology 06/25/23 Automobile Technician Relationship Specialty Start Date End Date Carlos Cavazos [address] [place] [phone] PCP - General 12/21/21 Rebecca Buck MD [address] [address] Surgeon Urology 06/25/23 Automobile Technician Relationship Specialty Start Date End Date Carlos Cavazos [address] [place] [phone] PCP - General 12/21/21 Rebecca Buck MD [address] [address] Surgeon Urology 06/25/23 Team Status: Inactive Member Role Status Dates Dr. Monika Staley MD Primary Care Provider Active Start: March 13, 2024 End: March 13, 2024 [facility] Attending Provider Active Start: March 13, 2024 [...] March 17, 2024 End: March 17, 2024 [facility] Attending Provider Active Start: March 17, 2024 End: March 17, 2024 Team Status: Inactive Member Role Status Dates Dr. Monika Staley MD Primary Care Provider Active Start: March 18, 2024 End: March 18, 2024 [facility] Attending Provider Active Start: March 18, 2024 [...] March 20, 2024 End: March 20, 2024 [facility] Attending Provider Active Start: March 20, 2024 [...] March 27, 2024 End: March 27, 2024 [facility] Attending Provider Active Start: March 27, 2024 [...] Care Provider Active Start: July 07, 2024 [facility] Attending Provider Active Start: July 07, 2024 [...] tSaley MD Primary Care Provider Active Start: September [...] 14, 2024 End: July 14, 2024 Carlos NOAVK Attending Provider Active Sta rt: July 14, [...] 01, 2024 End: September 01, 2024 Carlos NVOAK Attending Provider Active Sta rt: September 01, [...] Care Provider Active Start: October 09, 2024 aKron NOVAK MD Attending Provider Active Start: October [...] physician Activ e Start: October 16, 2024 Kraon NOVAK MD Attending physician Active Start: October [...] physician Activ e Start: November 17, 2024 Karno NOVAK MD Attending physician Active Start: November [...] Status Dates Dr. Moinka Staley MD Primary care physician Activ e [...] Status Dates Dr. Monika Stalye MD Primary care physician Activ e Start: [...] Activ e Start: January 22, 2025 Karon NVOAK MD Attending physician Active Start: January 22, [...] mg, Oral, ONCE Warfarin, 1 dose, On [facility] 10/29/21 at 1800, Indication of Use: [...] BE BASED ON THE PRIMARY CLINICAL RECORDS. [facility] [employer] [facility]. provides no warranty or guarantee of the accuracy or completeness of information in this document.
[2025-03-23 08:32] LABS: Prothrombin Time (Protime)PT. 23.1 SECONDS (11.7-14.9)
== END ==
LOC: OLS.SANC 05:00
PROVIDERS: PCP General Practice; Visit Provider Internal Medicine
DX: Z79.01 Long term (current) use of anticoagulants (principal)
CPT/HCPCS: 36415; 85610

== ENCOUNTER → 2025-03-26 | Outpatient (REF) | payer MEDICARE, MEDICAID, SELFPAY ==
[2025-03-26 10:19] LABS: Prothrombin Time (Protime)PT. 25.5 SECONDS (11.7-14.9)
== END ==
LOC: OLS.SANC 07:20
PROVIDERS: PCP General Practice
DX: Z79.01 Long term (current) use of anticoagulants (principal)
CPT/HCPCS: 36415; 85610

== ENCOUNTER → 2025-03-30 05:00 | Outpatient (REF) | payer MEDICARE, MEDICAID, SELFPAY ==
--- OUTSIDE RECORDS SUMMARY | 2025-03-30 03:54 | XMS RPT_ITS | CCD ---
Author Organization 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 Monika Horner Primary Care Provider [facility] Attending Provider [phone] Carlos Nelson Attending Provider Jonh Pascual MD, [...] Dr. Kvng Crisostomo MD Attending Provider Jany Satley MD, Dr. Monika Horner Primary Care Provider [...] Jonh Cardoza MD, Dr. Monika Horner Primary [facility] Physician Karon Corrales MD Attending Physician Unav ailCarlos Anglin Attending Physician Camelia Corrales MD, Karon Referring Provider Unava evan Staley MD, Dr. Monika Horner Primary [facility] Physician Carlos Nelson Attending Physician Unavailvanessa Corrales [...] OLS, Mahaveer Attending Unavail able [facility] Attending Unavai lable Luís, Shiela Primary Care Unavailable Crisostomo OLS, Babbaljeet Attending Unavailable Luís, Shiela Primary Care Unavailable [facility] Attending Unavai lable Luís, Shiela Primary Care [...] Unavailable MukkKaron Hoover Attending Unavail able Luís, [facility] Primary Care Unavailable NubiaKaron Stacy Attending Unavail able Luís, Shiela Primary Care Unavailable NubiaKaron Stacy Attending Unavail able Luís, [facility] Primary Care Unavailable MaribelCarlos Flood Attending Unavailable [place], [facility] Unavailable Allergies Allergy Classification Reported Allergen(s) Allergy Type Date of Onset Reaction(s) Facility (13 sources) [facility]: (15 sources) Alcohol Propensity to adverse reactions to drug 3 Rash, Hives, Other: See Comments, Other [facility] Work Phone: (1 source) Latex Drug Allergy 0 Rash [facility] (8 sources) Cortisone Drug Allergy 2 [facility] (7 sources) Latex Allergy to substance 0 Rash [facility] Medications Current Medications Medication Drug Class(es) Dates Sig (Normalized) Sig (Original) Acetaminophen (10 sources) Start: 10-21-2021 acetaminophen (TYLENOL) tablet 650 mg Start: 09-14-2021 acetaminophen (TYLENOL) 325 MG tablet 650 mg every 6 hours as needed 0 09/14/2021 Active take 2 tablets by [facility] every eight hours acetaminophen (TYLENOL) [...] Start: 11-01-2021 take 1 capsule by mo [facility] once daily tamsulosin (FLOMAX) 0.4 MG capsule [...] Comment on above: [facility] tablet [facility] daily. Antacid TABS (6 [...] Comment on above: Take 1 capsule by [facility] three times daily. Complete Multi-Vitamin CHEW [...] Active docusate sodium 50 mg / sennosides, residential 8.6 mg oral tablet (1 source) Start: [...] Units subcutaneously with meals and at bedtime. Hungarian Panax Ginseng 100 MG CAPS (8 sources) Hungarian Panax Ginseng 100 MG CAPS Quantity: 0 Refills: 0 Ordered: 06-Nov-2019 DO Active Hungarian Panax Ginseng 100 MG Oral Capsule (4 sources) Hungarian Panax Ginseng 100 MG Oral Capsule Refills: 0 Active Hungarian Panax Gin mayuri 100 MG Oral Capsule Refills: 0 DO Active Hungarian Panax Ginseng 100 MG Oral Capsule (2 sources) Hungarian Panax Gin mayuri 100 MG Oral Capsule [...] once daily. Pentoxifylline (1 source) Blood Viscosity Ratoprinter PENTOXIFYLLINE ORAL Take by mouth. 0 Active Comment on above: Take by mouth. petrolatum 0.41 mg/mg topical ointment (1 source) Start : 08-20 white petrolatum (AQUAPHOR) 41 % topical ointment Apply to affected area once daily. 0 08/20/2021 Active Comment on above: Apply to affected ar ea once daily. 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, [address] PT Coag (PPP) [Time] 25.1 s High 11.7-14.9 [facility] Comment on above: Order Comment: 411-2 Performed By: #### L 300.3900 ####[facility] [address] [place], [address] Prothrombin Time w/INRon INR Coag (PPP) [Relative time] 2.3 {INR} Normal [facility] Comment on above: Order Comment: 411-2 Performed By: #### L 300.3900 ####[facility] [address] [place], [address] PT Coag (PPP) [Time] 25.5 s High 11.7-14.9 [facility] Comment on above: Order Comment: 411-2 Performed By: #### L 300.3900 ####[facility] [address] [place], [address] Prothrombin Time w/INRon INR Coag (PPP) [Relative time] 2.0 {INR} Normal [facility] Comment on above: Order Comment: 411.2 Performed By: #### L 300.3900 ####[facility] [address] [place], [address] PT Coag (PPP) [Time] 22.8 s High 11.7-14.9 [facility] Comment on above: Order Comment: 411.2 Performed By: #### L 300.3900 ####[facility] [address] [place], [address] Prothrombin Time w/INRon INR Coag (PPP) [Relative time] 1.7 {INR} Normal [facility] Comment on above: Order Comment: 411-2 Performed By: #### L 300.3900 ####[facility] [address] [place], [address] PT Coag (PPP) [Time] 20.5 s High 11.7-14.9 [facility] Comment on above: Order Comment: 411-2 Performed By: #### L 300.3900 ####[facility] [address] [place], [address] Prothrombin Time w/INRon INR Coag (PPP) [Relative time] 1.5 {INR} Normal [facility] Comment on above: Order Comment: 411.2 Performed By: #### L 300.3900 ####[facility] [address] [place], [address] PT Coag (PPP) [Time] 18.4 s High 11.7-14.9 [facility] Comment on above: Order Comment: 411.2 Performed By: #### L 300.3900 ####[facility] [address] [place], [address] Prothrombin Time w/INRon INR Coag (PPP) [Relative time] 1.8 {INR} Normal [facility] Comment on above: Order Comment: 411.2 Performed By: #### L 300.3900 ####[facility] [address] [place], [address] PT Coag (PPP) [Time] 21.2 s High 11.7-14.9 [facility] Comment on above: Order Comment: 411.2 Performed By: #### L 300.3900 ####[facility] [address] [place], [place], [phone] International normalized rat io (INR) calculationOrdered By: Carlos Cavazos on 03-02-2025 INR Coag (Bld) [Relative time] 2.2 {INR} [facility] Prothrombin Time w/INRon INR Coag (PPP) [Relative time] 2.2 {INR} Normal [facility] Comment on above: Order Comment: 411-2 Performed By: #### L 300.3900 ####[facility] [address] [place], [place], [phone] Prothrombin timeOrdered By: Carlos Cavazos on 03-02-2025 PT Coag (PPP) [Time] 25.3 s High 11.7-14.9 [facility] Comment on above: Order Comment: 411-2 Performed By: #### L 300.3900 ####[facility] [address] [place], [place], [phone] International normalized rat io (INR) calculationOrdered By: Karon Corrales on 02-26-2025 INR Coag (Bld) [Relative time] 2.2 {INR} [facility] Prothrombin Time w/INRon INR Coag (PPP) [Relative time] 2.2 {INR} Normal [facility] Comment on above: Order Comment: 411.2 Performed By: #### L 300.3900 ####[facility] [address] [place], [address] PT Coag (PPP) [Time] 24.5 s High 11.7-14.9 [facility] Comment on above: Order Comment: 411.2 Performed By: #### L 300.3900 ####[facility] [address] [place], [place], [address] Prothrombin timeOrdered By: Karon Corrales on 02-26-2025 PT Coag (PPP) [Time] 24.5 s High 11.7-14.9 [facility] International normalized rat io (INR) calculationOrdered By: Karon Corrales on 02-23-2025 INR Coag (Bld) [Relative time] 2.0 {INR} [facility] Prothrombin Time w/INRon INR Coag (PPP) [Relative time] 2.0 {INR} Normal [facility] Comment on above: Order Comment: 411.2 Performed By: #### L 300.3900 ####[facility] [address] [place], [place], [address] PT Coag (PPP) [Time] 23.5 s High 11.7-14.9 [facility] Comment on above: Order Comment: 411.2 Performed By: #### L 300.3900 ####[facility] [address] [place], [place], [address] Prothrombin timeOrdered By: Karon Corrales on 02-23-2025 PT Coag (PPP) [Time] 23.5 s High 11.7-14.9 [facility] International normalized rat io (INR) calculationOrdered By: Karon Corrales on 02-19-2025 INR Coag (Bld) [Relative time] 1.9 {INR} [facility] Prothrombin Time w/INRon INR Coag (PPP) [Relative time] 1.9 {INR} Normal [facility] Comment on above: Order Comment: 411.2 Performed By: #### L 300.3900 ####[facility] [address] [place], [address]) PT Coag (PPP) [Time] 21.8 s High 11.7-14.9 [facility] Comment on above: Order Comment: 411.2 Performed By: #### L 300.3900 ####[facility] [address] [place], [place], [address] Prothrombin timeOrdered By: Karon Corrales on 02-19-2025 PT Coag (PPP) [Time] 21.8 s High 11.7-14.9 [facility] International normalized rat io (INR) calculationOrdered By: Karon Corrales on 02-16-2025 INR Coag (Bld) [Relative time] 1.5 {INR} [facility] Prothrombin Time w/INRon INR Coag (PPP) [Relative time] 1.5 {INR} Normal [facility] Comment on above: Order Comment: 411.2 Performed By: #### L 300.3900 ####[facility] [address] [place], [place], [address] PT Coag (PPP) [Time] 18.6 s High 11.7-14.9 [facility] Comment on above: Order Comment: 411.2 Performed By: #### L 300.3900 ####[facility] [address] [place], [place], [address] Prothrombin timeOrdered By: Karon Corrales on 02-16-2025 PT Coag (PPP) [Time] 18.6 s High 11.7-14.9 [facility] International normalized rat io (INR) calculationOrdered By: Karon Corrales on 02-12-2025 INR Coag (Bld) [Relative time] 2.5 {INR} [facility] Prothrombin Time w/INRon INR Coag (PPP) [Relative time] 2.5 {INR} Normal [facility] Comment on above: Order Comment: 411.2 Performed By: #### L 300.3900 ####[facility] [address] [place], [address] PT Coag (PPP) [Time] 27.5 s High 11.7-14.9 [facility] Comment on above: Order Comment: 411.2 Performed By: #### L 300.3900 ####[facility] [address] [place], [address] Prothrombin timeOrdered By: Karon Corrales on 02-12-2025 PT Coag (PPP) [Time] 27.5 s High 11.7-14.9 [facility] International normalized rat io (INR) calculationOrdered By: Carlos Cavazos on 02-09-2025 INR Coag (Bld) [Relative time] 2.5 {INR} [facility] Prothrombin Time w/INRon INR Coag (PPP) [Relative time] 2.5 {INR} Normal [facility] Comment on above: Order Comment: 411-2 Performed By: #### L 300.3900 ####[facility] [address] [place], [address] INR Normal [facility] Comment on above: Order Comment: 411.2 Result Comment: MISS ING TUBE Performed By: #### L 300.3900 ####[facility] [address] [place], [address] PROTIME Normal 11.7-14.9 [facility] Comment on above: Order Comment: 411.2 Result Comment: MISS ING TUBE Performed By: #### L 300.3900 ####[facility] [address] [place], [address] Prothrombin timeOrdered By: Carlos Cavazos on 02-09-2025 PT Coag (PPP) [Time] 27.2 s High 11.7-14.9 [facility] Comment on above: Order Comment: 411-2 Performed By: #### L 300.3900 ####[facility] [address] [place], [address] International normalized rat io (INR) calculationOrdered By: Karon Corrales on 02-05-2025 INR Coag (Bld) [Relative time] 2.5 {INR} [facility] Prothrombin Time w/INRon INR Coag (PPP) [Relative time] 2.5 {INR} Normal [facility] Comment on above: Order Comment: 411.2 Performed By: #### L 300.3900 ####[facility] [address] [place], [address] PT Coag (PPP) [Time] 27.6 s High 11.7-14.9 [facility] Comment on above: Order Comment: 411.2 Performed By: #### L 300.3900 ####[facility] [address] [place], [place], [phone] Prothrombin timeOrdered By: Karon Corrales on 02-05-2025 PT Coag (PPP) [Time] 27.6 s High 11.7-14.9 [facility] International normalized rat io (INR) calculationOrdered By: Karon Corrales on 02-02-2025 INR Coag (Bld) [Relative time] 2.4 {INR} [facility] Prothrombin Time w/INRon INR Coag (PPP) [Relative time] 2.4 {INR} Normal [facility] Comment on above: Order Comment: 411.2 Performed By: #### L 300.3900 ####[facility] [address] [place], [address] PT Coag (PPP) [Time] 26.8 s High 11.7-14.9 [facility] Comment on above: Order Comment: 411.2 Performed By: #### L 300.3900 ####[facility] [address] [place], [place], [phone] Prothrombin timeOrdered By: Karon Corrales on 02-02-2025 PT Coag (PPP) [Time] 26.8 s High 11.7-14.9 [facility] International normalized rat io (INR) calculationOrdered By: Karon Corrales on 01-29-2025 INR Coag (Bld) [Relative time] 2.7 {INR} [facility] Prothrombin Time w/INRon INR Coag (PPP) [Relative time] 2.7 {INR} Normal [facility] Comment on above: Performed By: #### L 300.3900 ####[facility] [address] [place], [place], [phone]) PT Coag (PPP) [Time] 29.1 s High 11.7-14.9 [facility] Comment on above: Performed By: #### L 300.3900 ####[facility] [address] [place], [place], [phone]) Prothrombin timeOrdered By: Karon Corrales on 01-29-2025 PT Coag (PPP) [Time] 29.1 s High 11.7-14.9 [facility] International normalized rat io (INR) calculationOrdered By: Karon Corrales on 01-26-2025 INR Coag (Bld) [Relative time] 2.0 {INR} [facility] Prothrombin Time w/INRon INR Coag (PPP) [Relative time] 2.0 {INR} Normal [facility] Comment on above: Order Comment: 411.2 Performed By: #### L 300.3900 ####[facility] [address] [place], [place], [phone]) PT Coag (PPP) [Time] 23.1 s High 11.7-14.9 [facility] Comment on above: Order Comment: 411.2 Performed By: #### L 300.3900 ####[facility] [address] [place], [place], [phone]) Prothrombin timeOrdered By: Karon Corrales on 01-26-2025 PT Coag (PPP) [Time] 23.1 s High 11.7-14.9 [facility] International normalized rat io (INR) calculationOrdered By: Karon Corrales on 01-22-2025 INR Coag (Bld) [Relative time] 2.4 {INR} [facility] Prothrombin Time w/INRon INR Coag (PPP) [Relative time] 2.4 {INR} Normal [facility] Comment on above: Order Comment: 411.2 Performed By: #### L 300.3900 ####[facility] [address] [place], [address] PT Coag (PPP) [Time] 26.6 s High 11.7-14.9 [facility] Comment on above: Order Comment: 411.2 Performed By: #### L 300.3900 ####[facility] [address] [place], [address] Prothrombin timeOrdered By: Karon Corrales on 01-22-2025 PT Coag (PPP) [Time] 26.6 s High 11.7-14.9 [facility] International normalized rat io (INR) calculationOrdered By: Carlos Cavazos on 01-19-2025 INR Coag (Bld) [Relative time] 2.7 {INR} [facility] Prothrombin Time w/INRon INR Coag (PPP) [Relative time] 2.7 {INR} Normal [facility] Comment on above: Order Comment: 411-2 Performed By: #### L 300.3900 ####[facility] [address] [place], [address] PT Coag (PPP) [Time] 29.7 s High 11.7-14.9 [facility] Comment on above: Order Comment: 411-2 Performed By: #### L 300.3900 ####[facility] [address] [place], [address] Prothrombin timeOrdered By: Carlos Cavazos on 01-19-2025 PT Coag (PPP) [Time] 29.7 s High 11.7-14.9 [facility] International normalized rat io (INR) calculationOrdered By: Karon Corrales on 01-15-2025 INR Coag (Bld) [Relative time] 2.4 {INR} [facility] Prothrombin Time w/INRon INR Coag (PPP) [Relative time] 2.4 {INR} Normal [facility] Comment on above: Order Comment: 411.1 Performed By: #### L 300.3900 ####[facility] [address] [place], [place], [address] PT Coag (PPP) [Time] 26.6 s High 11.7-14.9 [facility] Comment on above: Order Comment: 411.1 Performed By: #### L 300.3900 ####[facility] [address] [place], [place], [address] Prothrombin timeOrdered By: Karon Corrales on 01-15-2025 PT Coag (PPP) [Time] 26.6 s High 11.7-14.9 [facility] KEPPRA (LEVETIRACETAM)on KEPPRA 30.1 ug/mL Normal 10.0-40.0 [facility] Comment on above: Order Comment: 411.1 Result Comment: Perf ormed at: [facility] [address] [id number] Director: Alpesh Vázquez MD, Phone: [phone] Performed By: #### L 0140.0000, Z037.1168 ####[facility] [address] [place], [place], [address] International normalized rat io (INR) calculationOrdered By: Karon Corrales on 01-12-2025 INR Coag (Bld) [Relative time] 2.3 {INR} [facility] LevetiracetamOrdered By: Carla Corrales on 01-12-2025 levETIRAcetam [Mass/Vol] 30.1 ug/mL 10.0-40.0 [facility] Comment on above: Performed at: - [facility] [address] [id number] Director: Alpesh Vázquez MD, Phone: [phone] Prothrombin Time w/INRon INR Coag (PPP) [Relative time] 2.3 {INR} Normal [facility] Comment on above: Order Comment: 411.1 Performed By: #### L 3310.0000, L300.3900 ####[facility] [address] [place], [address] PT Coag (PPP) [Time] 26.1 s High 11.7-14.9 [facility] Comment on above: Order Comment: 411.1 Performed By: #### L 3310.0000, L300.3900 ####[facility] [address] [place], [address] Prothrombin timeOrdered By: Karon Corrales on 01-12-2025 PT Coag (PPP) [Time] 26.1 s High 11.7-14.9 [facility] KEPPRA (LEVETIRACETAM)on KEPPRA 27.6 ug/mL Normal 10.0-40.0 [facility] Comment on above: Order Comment: 411.1 Result Comment: Perf ormed at: - [facility] [address] [id number] Director: Alpesh Vázquez MD, Phone: [phone] Performed By: #### L 3310.0000, L300.3900 ####[facility] [address] [place], [address] International normalized rat io (INR) calculationOrdered By: Kaorn Corrales on 01-08-2025 INR Coag (Bld) [Relative time] 2.2 {INR} [facility] Prothrombin Time w/INRon INR Coag (PPP) [Relative time] 2.2 {INR} Normal [facility] Comment on above: Order Comment: 411.1 Performed By: #### L 300.3900 ####[facility] [address] [place], [address] PT Coag (PPP) [Time] 24.5 s High 11.7-14.9 [facility] Comment on above: Order Comment: 411.1 Performed By: #### L 300.3900 ####[facility] [address] [place], [address] Prothrombin timeOrdered By: Karon Corrales on 01-08-2025 PT Coag (PPP) [Time] 24.5 s High 11.7-14.9 [facility] International normalized rat io (INR) calculationOrdered By: Karon Corrales on 01-06-2025 INR Coag (Bld) [Relative time] 3.2 {INR} [facility] LevetiracetamOrdered By: Carla Corrales on 01-06-2025 levETIRAcetam [Mass/Vol] 27.6 ug/mL 10.0-40.0 [facility] Comment on above: Performed at: [address] [id number] Director: Alpesh Vázquez MD, Phone: [phone] Prothrombin Time w/INRon INR Coag (PPP) [Relative time] 3.2 {INR} Normal [facility] Comment on above: Order Comment: 411.1 Performed By: #### L 3310.0000, L300.3900 ####[facility] [address] [place], [address] PT Coag (PPP) [Time] 33.1 s High 11.7-14.9 [facility] Comment on above: Order Comment: 411.1 Performed By: #### L 3310.0000, L300.3900 ####[facility] [address] [place], [place], [address] Prothrombin timeOrdered By: Karon Corrales on 01-06-2025 PT Coag (PPP) [Time] 33.1 s High 11.7-14.9 [facility] International normalized rat io (INR) calculationOrdered By: Karon Corrales on 01-01-2025 INR Coag (Bld) [Relative time] 2.7 {INR} [facility] Prothrombin Time w/INRon INR Coag (PPP) [Relative time] 2.7 {INR} Normal [facility] Comment on above: Order Comment: 411.1 Performed By: #### L [id number] ####[facility] [address] [place], [place], [address] Prothrombin timeOrdered By: Karon Corrales on 01-01-2025 PT Coag (PPP) [Time] 29.1 s High 11.7-14.9 [facility] Comment on above: Order Comment: 411.1 Performed By: #### L [id number] ####[facility] [address] [place], [place], [address] KEPPRA (LEVETIRACETAM)on KEPPRA 31.8 ug/mL Normal 10.0-40.0 [facility] Comment on above: Order Comment: 411-1 Result Comment: [facility]f ormed at: - [facility] [place], [place] [id number] Director: Alpesh Vázquez MD, Phone: [phone] Performed By: #### L 3310.0000, L365.3164 ####[facility] [address] [place], [place], [address] International normalized rat io (INR) calculationOrdered By: Carlos Cavazos on 12-29-2024 INR Coag (Bld) [Relative time] 3.3 {INR} [facility] KEPPRA (LEVETIRACETAM)on KEPPRA 33.3 ug/mL Normal 10.0-40.0 [facility] Comment on above: Order Comment: 411.1 Result Comment: Perf ormed at: [facility] [address] [id number] Director: Alpesh Vázquez MD, Phone: [phone] Performed By: #### L 3310.0000 ####[facility] [address] [facility] [address] LevetiracetamOrdered By: Ted Cavazos on 12-29-2024 levETIRAcetam [Mass/Vol] 31.8 ug/mL 10.0-40.0 [facility] Comment on above: Performed at: [employer] [address] [id number] Director: Alpesh Vázquez MD, Phone: [phone] Prothrombin Time w/INRon INR Coag (PPP) [Relative time] 3.3 {INR} Normal [facility] Comment on above: Order Comment: 411-1 Performed By: #### L 3310.0000, L300.3900 ####[facility] [address] [place], [address] Prothrombin timeOrdered By: Carlos Cavazos on 12-29-2024 PT Coag (PPP) [Time] 34.0 s High 11.7-14.9 [facility] Comment on above: Order Comment: 411-1 Performed By: #### L 3310.0000, L300.3900 ####[facility] [address] [place], [place], [address] LevetiracetamOrdered By: Carla Corrales on 12-26-2024 levETIRAcetam [Mass/Vol] 33.3 ug/mL 10.0-40.0 [facility] Comment on above: Performed at: [employer] [address], [place] [id number] Director: Alpesh Vázquez MD, Phone: [phone] International normalized rat io (INR) calculationOrdered By: Karon Corrales on 12-25-2024 INR Coag (Bld) [Relative time] 2.8 {INR} [facility] Prothrombin Time w/INRon INR Coag (PPP) [Relative time] 2.8 {INR} Normal [facility] Comment on above: Order Comment: 411.1 Performed By: #### L 300.3900 ####[facility] [address] [place], [address] Prothrombin timeOrdered By: Karon Corrales on 12-25-2024 PT Coag (PPP) [Time] 30.0 s High 11.7-14.9 [facility] Comment on above: Order Comment: 411.1 Performed By: #### L 300.3900 ####[facility] [address] [place], [address] Anion gap in Serum or Plasma Ordered By: Carlos Cavazos on 12-24-2024 Anion gap [Moles/Vol] 13 mmol/L 09-18 [facility] BUN/creatinine ratioOrdered By: Carlos Cavazos on 12-24-2024 Urea nitrogen/Creatinine [Mass ratio] 19.2 mg/mg 02-23 [facility] Basic Metabolic Profile (BMP )on 12-24-2024 BUN/CRE 19.2 RATIO Normal 02-23 [facility] Comment on above: Order Comment: 411-1 Performed By: #### L 500.2500, L100.0500 ####[facility] [address] [place], [address] Calcium [Mass/Vol] 8.8 mg/dL Normal 7.6-11.0 [facility] Comment on above: Order Comment: 411-1 Performed By: #### L 500.2500, L100.0500 ####[facility] [address] [place], [address] Chloride [Moles/Vol] 103 mmol/L Normal 98-108 [facility] Comment on above: Order Comment: 411-1 Performed By: #### L 500.2500, L100.0500 ####[facility] [address] [place], [address] CO2 [Moles/Vol] 23.7 mmol/L Normal 21.0-32.0 [facility] Comment on above: Order Comment: 411-1 Performed By: #### L 500.2500, L100.0500 ####[facility] [address] [place], [address] Creatinine [Mass/Vol] 0.82 mg/dL Normal 0.70-1.20 [facility] Comment on above: Order Comment: 411-1 Performed By: #### L 500.2500, L100.0500 ####[facility] [address] [place], [address] GAP 13 Normal 5-15 [facility] Comment on above: Order Comment: 411-1 Performed By: #### L 500.2500, L100.0500 ####[facility] [address] [place], [address] GFR/1.73 sq M.predicted among non-blacks MDRD (S/P/Bld) [Vol rate/Area] 93 mL/min/{1.73_m2} Normal >60 [facility] Comment on above: Order Comment: 411-1 Result Comment: mL/m in/1.73m2 CKD-EPI Creatinine Equation (2020) Performed By: #### L 500.2500, L100.0500 ####[facility] [address] [place], [address] Glucose [Mass/Vol] 88 mg/dL Normal 70-99 [facility] Comment on above: Order Comment: 411-1 Performed By: #### L 500.2500, L100.0500 ####[facility] [address] [place], [address] Potassium [Moles/Vol] 4.2 mmol/L Normal 3.3-5.1 [facility] Comment on above: Order Comment: 411-1 Performed By: #### L 500.2500, L100.0500 ####[facility] [address] [place], [address] Sodium [Moles/Vol] 139 mmol/L Normal 133-145 [facility] Comment on above: Order Comment: 411-1 Performed By: #### L 500.2500, L100.0500 ####[facility] [address] [place], [address] Urea nitrogen [Mass/Vol] 16 mg/dL Normal 4-19 [facility] Comment on above: Order Comment: 411-1 Performed By: #### L 500.2500, L100.0500 ####[facility] [address] [place], [address] CBC-Complete Blood Cnt No Di ffon 12-24-2024 Erythrocyte distribution width (RBC) [Ratio] 15.4 % High 11.6-14.6 [facility] Comment on above: Order Comment: 411-1 Performed By: #### L 500.2500, L100.0500 ####[facility] [address] [place], [address] Hematocrit (Bld) [Volume fraction] 39.8 % Low 40-54 [facility] Comment on above: Order Comment: 411-1 Performed By: #### L 500.2500, L100.0500 ####[facility] [address] [place], [address] Hemoglobin (Bld) [Mass/Vol] 12.4 g/dL Low 13.0-16.5 [facility] Comment on above: Order Comment: 411-1 Performed By: #### L 500.2500, L100.0500 ####[facility] [address] [place], [address] MCH (RBC) [Entitic mass] 26.6 pg Low 27.0-32.0 [facility] Comment on above: Order Comment: 411-1 Performed By: #### L 500.2500, L100.0500 ####[facility] [address] [place], [address] MCHC (RBC) [Mass/Vol] 31.2 g/dL Low 32-36 [facility] Comment on above: Order Comment: 411-1 Performed By: #### L 500.2500, L100.0500 ####[facility] [address] [place], [address] MCV (RBC) [Entitic vol] 85.4 fL Normal 80-94 [facility] Comment on above: Order Comment: 411-1 Performed By: #### L 500.2500, L100.0500 ####[facility] [address] [place], [address] Platelet mean volume (Bld) [Entitic vol] 10.4 fL Normal 6.2-12.0 [facility] Comment on above: Order Comment: 411-1 Performed By: #### L 500.2500, L100.0500 ####[facility] [address] [place], [address] Platelets (Bld) [#/Vol] 290 10*3/uL Normal 150-450 [facility] Comment on above: Order Comment: 411-1 Performed By: #### L 500.2500, L100.0500 ####[facility] [address] [place], [address] RBC (Bld) [#/Vol] 4.66 10*6/uL Normal 4.6-6.2 [facility] Comment on above: Order Comment: 411-1 Performed By: #### L 500.2500, L100.0500 ####[facility] [address] [place], [address] RDW SD 48.1 fl High 35.1-43.9 [facility] Comment on above: Order Comment: 411-1 Performed By: #### L 500.2500, L100.0500 ####[facility] [address] [place], [address] WBC (Bld) [#/Vol] 16.6 10*3/uL High 4.4-11.0 [facility] Comment on above: Order Comment: 411-1 Performed By: #### L 500.2500, L100.0500 ####[facility] [address] [place], [address] Carbon dioxide, total [Moles /volume] in Central venous bloodOrdered By: Carlos Cavazos on 12-24-2024 CO2 [Moles/Vol] 23.7 mmol/L 21.0-32.0 [facility] Chloride assayOrdered By: Sharif Crouch on 12-24-2024 Chloride [Moles/Vol] 103 mmol/L 98-108 [facility] Erythrocyte distribution wid th ratioOrdered By: Carlos Cavazos on 12-24-2024 Erythrocyte distribution width (RBC) [Ratio] 15.4 % High 11.6-14.6 [facility] Erythrocyte distribution wid th standard deviationOrdered By: Carlos Cavazos on 12-24-2024 Erythrocyte distribution width (RBC) [Ratio] 48.1 fl High 35.1-43.9 [facility] Glomerular filtration rate ( GFR) estimation/1.73 sq m using serum, plasma, or whole bOrdered By: Carlos Cavazos on 12-24-2024 GFR/1.73 sq M.predicted among non-blacks MDRD (S/P/Bld) [Vol rate/Area] 93 mL/min/{1.73_m2} >60 [facility] Comment on above: mL/min/1.73m2 CKD-EP I Creatinine Equation (2020) Hematocrit Auto (Bld) [Volum e fraction]Ordered By: Carlos Cavazos on 12-24-2024 Hematocrit (Bld) [Volume fraction] 39.8 % Low 40-54 [facility] Hemoglobin measurementOrdere d By: Carlos Cavazos on 12-24-2024 Hemoglobin (Bld) [Mass/Vol] 12.4 g/dL Low 13.0-16.5 [facility] MCV (mean corpuscular volume ) determinationOrdered By: Carlos Cavazos on 12-24-2024 MCV (RBC) [Entitic vol] 85.4 fL 80-94 [facility] Mean corpuscular hemoglobin (MCH) determinationOrdered By: Carlos Cavazos on 12-24-2024 MCH (RBC) [Entitic mass] 26.6 pg Low 27.0-32.0 [facility] Mean corpuscular hemoglobin concentration (MCHC) determinationOrdered By: Carlos Cavazos on 12-24-2024 MCHC (RBC) [Mass/Vol] 31.2 g/dL Low 32-36 [facility] Mean platelet volume determi nationOrdered By: Carlos Cavazos on 12-24-2024 Platelet mean volume (Bld) [Entitic vol] 10.4 fL 6.2-12.0 [facility] Platelet countOrdered By: Sharif Crouch on 12-24-2024 Platelets (Bld) [#/Vol] 290 10*3/uL 150-450 [facility] Potassium measurement (mass/ volume)Ordered By: Carlos Cavazos on 12-24-2024 Potassium (Unsp spec) [Mass/Vol] 4.2 mmol/L 3.3-5.1 [facility] RBC Auto (Bld) [#/Vol]Ordere d By: Carlos Cavazos on 12-24-2024 RBC (Bld) [#/Vol] 4.66 10*6/uL 4.6-6.2 [facility] Serum creatinine measurement (mass/volume)Ordered By: Carlos Cavazos on 12-24-2024 Creatinine [Mass/Vol] 0.82 mg/dL 0.70-1.20 [facility] Serum glucose measurement (m ass/volume)Ordered By: Carlos Cavazos on 12-24-2024 Glucose [Mass/Vol] 88 mg/dL 70-99 [facility] Serum or plasma calcium oral urement (mass/volume)Ordered By: Carlos Cavazos on 12-24-2024 Calcium [Mass/Vol] 8.8 mg/dL 7.6-11.0 [facility] Serum or plasma urea nitroge n measurement (mass/volume)Ordered By: Carlos Cavazos on 12-24-2024 Urea nitrogen [Mass/Vol] 16 mg/dL 4-19 [facility] Sodium levelOrdered By: Moe Cavazos on 12-24-2024 Sodium [Moles/Vol] 139 mmol/L 133-145 [facility] White blood cell (WBC) count Ordered By: Carlos Cavazos on 12-24-2024 WBC (Bld) [#/Vol] 16.6 10*3/uL High 4.4-11.0 [facility] International normalized rat io (INR) calculationOrdered By: Karon Corrales on 12-22-2024 INR Coag (Bld) [Relative time] 2.6 {INR} [facility] Prothrombin Time w/INRon INR Coag (PPP) [Relative time] 2.6 {INR} Normal [facility] Comment on above: Order Comment: 411.1 Performed By: #### L 300.1807 ####[facility] [address] [facility] [place], [place], [phone] PT Coag (PPP) [Time] 28.8 s High 11.7-14.9 [facility] Comment on above: Order Comment: 411.1 Performed By: #### L 300.3900 ####[facility] [address] [facility] [place], [place], [id number] Prothrombin timeOrdered By: Karon Corrales on 12-22-2024 PT Coag (PPP) [Time] 28.8 s High 11.7-14.9 [facility] International normalized rat io (INR) calculationOrdered By: Karon Corrales on 12-18-2024 INR Coag (Bld) [Relative time] 2.4 {INR} [facility] Prothrombin Time w/INRon INR Coag (PPP) [Relative time] 2.4 {INR} Normal [facility] Comment on above: Order Comment: 411.1 Performed By: #### L 300.3900 ####[facility] [address] [place], [place], [address] PT Coag (PPP) [Time] 26.7 s High 11.7-14.9 [facility] Comment on above: Order Comment: 411.1 Performed By: #### L 300.3900 ####[facility] [address] [place], [place], [phone] Prothrombin timeOrdered By: Karon Corrales on 12-18-2024 PT Coag (PPP) [Time] 26.7 s High 11.7-14.9 [facility] International normalized rat io (INR) calculationOrdered By: Karon Corrales on 12-15-2024 INR Coag (Bld) [Relative time] 2.3 {INR} [facility] Prothrombin Time w/INRon INR Coag (PPP) [Relative time] 2.3 {INR} Normal [facility] Comment on above: Order Comment: 411.1 Performed By: #### L 300.3900 ####[facility] [address] [place], [place], [phone] Prothrombin timeOrdered By: Karon Corrales on 12-15-2024 PT Coag (PPP) [Time] 25.7 s High 11.7-14.9 [facility] Comment on above: Order Comment: 411.1 Performed By: #### L 300.3900 ####[facility] [address] [place], [place], [phone] International normalized rat io (INR) calculationOrdered By: Carlos Cavazos on 12-11-2024 INR Coag (Bld) [Relative time] 2.2 {INR} [facility] Prothrombin Time w/INRon INR Coag (PPP) [Relative time] 2.2 {INR} Normal [facility] Comment on above: Order Comment: 411-1 Performed By: #### L 300.3900 ####[facility] [address] [place], [address] Prothrombin timeOrdered By: Carlos Cavazos on 12-11-2024 PT Coag (PPP) [Time] 24.7 s High 11.7-14.9 [facility] Comment on above: Order Comment: 411-1 Performed By: #### L 300.3900 ####[facility] [address] [place], [place], [address] International normalized rat io (INR) calculationOrdered By: Karon Corrales on 12-08-2024 INR Coag (Bld) [Relative time] 2.2 {INR} [facility] Prothrombin Time w/INRon INR Coag (PPP) [Relative time] 2.2 {INR} Normal [facility] Comment on above: Order Comment: 411.1 Performed By: #### L 300.3900 ####[facility] [address] [place], [address] PT Coag (PPP) [Time] 25.0 s High 11.7-14.9 [facility] Comment on above: Order Comment: 411.1 Performed By: #### L 300.3900 ####[facility] [address] [place], [place], [address] Prothrombin timeOrdered By: Karon Corrales on 12-08-2024 PT Coag (PPP) [Time] 25.0 s High 11.7-14.9 [facility] International normalized rat io (INR) calculationOrdered By: Karon Corrales on 12-04-2024 INR Coag (Bld) [Relative time] 2.3 {INR} [facility] Prothrombin Time w/INRon INR Coag (PPP) [Relative time] 2.3 {INR} Normal [facility] Comment on above: Order Comment: 411.1 Performed By: #### L 300.3900 ####[facility] [address] [place], [address] PT Coag (PPP) [Time] 25.9 s High 11.7-14.9 [facility] Comment on above: Order Comment: 411.1 Performed By: #### L 300.3900 ####[facility] [address] [place], [address] Prothrombin timeOrdered By: Karon Corrales on 12-04-2024 PT Coag (PPP) [Time] 25.9 s High 11.7-14.9 [facility] International normalized rat io (INR) calculationOrdered By: Karon Corrales on 12-02-2024 INR Coag (Bld) [Relative time] 2.5 {INR} [facility] Prothrombin Time w/INRon INR Coag (PPP) [Relative time] 2.5 {INR} Normal [facility] Comment on above: Order Comment: 411.1 Performed By: #### L 300.3900 ####[facility] [address] [place], [address] PT Coag (PPP) [Time] 27.3 s High 11.7-14.9 [facility] Comment on above: Order Comment: 411.1 Performed By: #### L 300.3900 ####[facility] [address] [place], [address] Prothrombin timeOrdered By: Karon Corrales on 12-02-2024 PT Coag (PPP) [Time] 27.3 s High 11.7-14.9 [facility] International normalized rat io (INR) calculationOrdered By: Carlos Cavazos on 12-01-2024 INR Coag (Bld) [Relative time] 2.3 {INR} [facility] Prothrombin Time w/INRon INR Coag (PPP) [Relative time] 2.3 {INR} Normal [facility] Comment on above: Order Comment: 411-1 Performed By: #### L 300.3900 ####[facility] [address] [place], [address] PT Coag (PPP) [Time] 26.0 s High 11.7-14.9 [facility] Comment on above: Order Comment: 411-1 Performed By: #### L 300.3900 ####[facility] [address] [place], [address] Prothrombin timeOrdered By: Carlos Cavazos on 12-01-2024 PT Coag (PPP) [Time] 26.0 s High 11.7-14.9 [facility] International normalized rat io (INR) calculationOrdered By: Carlos Cavazos on 11-28-2024 INR Coag (Bld) [Relative time] 3.1 {INR} [facility] Prothrombin Time w/INRon INR Coag (PPP) [Relative time] 3.1 {INR} Normal [facility] Comment on above: Order Comment: 411-1 Performed By: #### L 300.3900 ####[facility] [address] [place], [address] PT Coag (PPP) [Time] 32.8 s High 11.7-14.9 [facility] Comment on above: Order Comment: 411-1 Performed By: #### L 300.3900 ####[facility] [address] [place], [address] Prothrombin timeOrdered By: Carlos Cavazos on 11-28-2024 PT Coag (PPP) [Time] 32.8 s High 11.7-14.9 [facility] International normalized rat io (INR) calculationOrdered By: Karon Corrales on 11-27-2024 INR Coag (Bld) [Relative time] 3.3 {INR} [facility] Prothrombin Time w/INRon INR Coag (PPP) [Relative time] 3.3 {INR} Normal [facility] Comment on above: Order Comment: 411.1 Performed By: #### L 300.3900 ####[facility] [address] [place], [place], [phone] PT Coag (PPP) [Time] 34.3 s High 11.7-14.9 [facility] Comment on above: Order Comment: 411.1 Performed By: #### L 300.3900 ####[facility] [address] [place], [place], [phone] Prothrombin timeOrdered By: Karon Corrales on 11-27-2024 PT Coag (PPP) [Time] 34.3 s High 11.7-14.9 [facility] International normalized rat io (INR) calculationOrdered By: Karon Corrales on 11-24-2024 INR Coag (Bld) [Relative time] 2.8 {INR} [facility] Prothrombin Time w/INRon INR Coag (PPP) [Relative time] 2.8 {INR} Normal [facility] Comment on above: Order Comment: 411.2 Performed By: #### L 300.3900 ####[facility] [address] [place], [place], [phone] PT Coag (PPP) [Time] 30.0 s High 11.7-14.9 [facility] Comment on above: Order Comment: 411.2 Performed By: #### L 300.3900 ####[facility] [address] [place], [place], [phone] Prothrombin timeOrdered By: Karon Corrales on 11-24-2024 PT Coag (PPP) [Time] 30.0 s High 11.7-14.9 [facility] International normalized rat io (INR) calculationOrdered By: Karon Corrales on 11-20-2024 INR Coag (Bld) [Relative time] 3.0 {INR} [facility] Prothrombin Time w/INRon INR Coag (PPP) [Relative time] 3.0 {INR} Normal [facility] Comment on above: Order Comment: 411.2 Performed By: #### L 300.3900 ####[facility] [address] [place], [place], [phone] PT Coag (PPP) [Time] 32.0 s High 11.7-14.9 [facility] Comment on above: Order Comment: 411.2 Performed By: #### L 300.3900 ####[facility] [address] [place], [place], [phone] Prothrombin timeOrdered By: Karon Corrales on 11-20-2024 PT Coag (PPP) [Time] 32.0 s High 11.7-14.9 [facility] International normalized rat io (INR) calculationOrdered By: Karon Corrales on 11-17-2024 INR Coag (Bld) [Relative time] 2.9 {INR} [facility] Prothrombin Time w/INRon INR Coag (PPP) [Relative time] 2.9 {INR} Normal [facility] Comment on above: Order Comment: 411.2 Performed By: #### L 300.3900 ####[facility] [address] [place], [place], [phone] PT Coag (PPP) [Time] 30.7 s High 11.7-14.9 [facility] Comment on above: Order Comment: 411.2 Performed By: #### L 300.3900 ####[facility] [address] [place], [place], [phone] Prothrombin timeOrdered By: Karon Corrales on 11-17-2024 PT Coag (PPP) [Time] 30.7 s High 11.7-14.9 [facility] International normalized rat io (INR) calculationOrdered By: Karon Corrales on 11-13-2024 INR Coag (Bld) [Relative time] 2.2 {INR} [facility] Prothrombin Time w/INRon INR Coag (PPP) [Relative time] 2.2 {INR} Normal [facility] Comment on above: Order Comment: 411.2 Performed By: #### L 300.3900 ####[facility] [address] [place], [place], [phone] PT Coag (PPP) [Time] 24.7 s High 11.7-14.9 [facility] Comment on above: Order Comment: 411.2 Performed By: #### L 300.3900 ####[facility] [address] [place], [place], [phone] Prothrombin timeOrdered By: Karon Corrales on 11-13-2024 PT Coag (PPP) [Time] 24.7 s High 11.7-14.9 [facility] International normalized rat io (INR) calculationOrdered By: Karon Corrales on 11-10-2024 INR Coag (Bld) [Relative time] 2.6 {INR} [facility] Prothrombin Time w/INRon INR Coag (PPP) [Relative time] 2.6 {INR} Normal [facility] Comment on above: Order Comment: 411.2 Performed By: #### L 300.3900 ####[facility] [address] [place], [address] PT Coag (PPP) [Time] 28.7 s High 11.7-14.9 [facility] Comment on above: Order Comment: 411.2 Performed By: #### L 300.3900 ####[facility] [address] [place], [place], [phone] Prothrombin timeOrdered By: Karon Corrales on 11-10-2024 PT Coag (PPP) [Time] 28.7 s High 11.7-14.9 [facility] International normalized rat io (INR) calculationOrdered By: Karon Corrales on 11-06-2024 INR Coag (Bld) [Relative time] 3.1 {INR} [facility] Prothrombin Time w/INRon INR Coag (PPP) [Relative time] 3.1 {INR} Normal [facility] Comment on above: Order Comment: 411.2 Performed By: #### L 300.3900 ####[facility] [address] [place], [address] Prothrombin timeOrdered By: Karon Corrales on 11-06-2024 PT Coag (PPP) [Time] 33.0 s High 11.7-14.9 [facility] Comment on above: Order Comment: 411.2 Performed By: #### L 300.3900 ####[facility] [address] [place], [address] International normalized rat io (INR) calculationOrdered By: Carlos Cavazos on 11-03-2024 INR Coag (Bld) [Relative time] 3.0 {INR} [facility] Prothrombin Time w/INRon INR Coag (PPP) [Relative time] 3.0 {INR} Normal [facility] Comment on above: Order Comment: 411-2 Performed By: #### L 300.3900 ####[facility] [address] [place], [address] PT Coag (PPP) [Time] 31.4 s High 11.7-14.9 [facility] Comment on above: Order Comment: 411-2 Performed By: #### L 300.3900 ####[facility] [address] [place], [address] Prothrombin timeOrdered By: Carlos Cavazos on 11-03-2024 PT Coag (PPP) [Time] 31.4 s High 11.7-14.9 [facility] International normalized rat io (INR) calculationOrdered By: Karon Corrales on 10-30-2024 INR Coag (Bld) [Relative time] 2.4 {INR} [facility] Prothrombin Time w/INRon INR Coag (PPP) [Relative time] 2.4 {INR} Normal [facility] Comment on above: Performed By: #### L 300.3900 ####[facility] [address] [place], [place], [phone] PT Coag (PPP) [Time] 26.3 s High 11.7-14.9 [facility] Comment on above: Performed By: #### L 300.3900 ####[facility] [address] [place], [place], [phone] Prothrombin timeOrdered By: Karon Corrales on 10-30-2024 PT Coag (PPP) [Time] 26.3 s High 11.7-14.9 [facility] International normalized rat io (INR) calculationOrdered By: Karon Corrales on 10-27-2024 INR Coag (Bld) [Relative time] 2.2 {INR} [facility] Prothrombin Time w/INRon INR Coag (PPP) [Relative time] 2.2 {INR} Normal [facility] Comment on above: Order Comment: 411.2 Performed By: #### L 300.3900 ####[facility] [address] [place], [place], [phone] Prothrombin timeOrdered By: Karon Corrales on 10-27-2024 PT Coag (PPP) [Time] 24.5 s High 11.7-14.9 [facility] Comment on above: Order Comment: 411.2 Performed By: #### L 300.3900 ####[facility] [address] [place], [address] International normalized rat io (INR) calculationOrdered By: Karon Corrales on 10-23-2024 INR Coag (Bld) [Relative time] 2.5 {INR} [facility] Prothrombin Time w/INRon INR Coag (PPP) [Relative time] 2.5 {INR} Normal [facility] Comment on above: Order Comment: 411.2 Performed By: #### L 300.3900 ####[facility] [address] [place], [address] PT Coag (PPP) [Time] 27.9 s High 11.7-14.9 [facility] Comment on above: Order Comment: 411.2 Performed By: #### L 300.3900 ####[facility] [address], [address] Prothrombin timeOrdered By: Karon Corrales on 10-23-2024 PT Coag (PPP) [Time] 27.9 s High 11.7-14.9 [facility] International normalized rat io (INR) calculationOrdered By: Karon Corrales on 10-20-2024 INR Coag (Bld) [Relative time] 3.1 {INR} [facility] Prothrombin Time w/INRon INR Coag (PPP) [Relative time] 3.1 {INR} Normal [facility] Comment on above: Order Comment: 411.2 Performed By: #### L 300.3900 ####[facility] [address] [place], [address] PT Coag (PPP) [Time] 32.8 s High 11.7-14.9 [facility] Comment on above: Order Comment: 411.2 Performed By: #### L 300.3900 ####[facility] [address] [place], [address] Prothrombin timeOrdered By: Karon Corrales on 10-20-2024 PT Coag (PPP) [Time] 32.8 s High 11.7-14.9 [facility] International normalized rat io (INR) calculationOrdered By: Karon Corrales on 10-16-2024 INR Coag (Bld) [Relative time] 2.8 {INR} [facility] Prothrombin Time w/INRon INR Coag (PPP) [Relative time] 2.8 {INR} Normal [facility] Comment on above: Order Comment: 411.2 Performed By: #### L 300.3900 ####[facility] [address] [place], [place], [phone](297 PT Coag (PPP) [Time] 30.4 s High 11.7-14.9 [facility] Comment on above: Order Comment: 411.2 Performed By: #### L 300.3900 ####[facility] [address] [place], [address](256 Prothrombin timeOrdered By: Karon Corrales on 10-16-2024 PT Coag (PPP) [Time] 30.4 s High 11.7-14.9 [facility] International normalized rat io (INR) calculationOrdered By: Carlos Cavazos on 10-13-2024 INR Coag (Bld) [Relative time] 1.9 {INR} [facility] Prothrombin Time w/INRon INR Coag (PPP) [Relative time] 1.9 {INR} Normal [facility] Comment on above: Order Comment: 411-2 Performed By: #### L 300.3900 ####[facility] [address] [place], [place], [phone](390 PT Coag (PPP) [Time] 22.4 s High 11.7-14.9 [facility] Comment on above: Order Comment: 411-2 Performed By: #### L 300.3900 ####[facility] [address] [place], [place], [phone](100 Prothrombin timeOrdered By: Carlos Cavazos on 10-13-2024 PT Coag (PPP) [Time] 22.4 s High 11.7-14.9 [facility] International normalized rat io (INR) calculationOrdered By: Karon Corrales on 10-09-2024 INR Coag (Bld) [Relative time] 3.0 {INR} [facility] Prothrombin Time w/INRon INR Coag (PPP) [Relative time] 3.0 {INR} Normal [facility] Comment on above: Order Comment: 411.2 Performed By: #### L 300.3900 ####[facility] [address] [place], [address] Prothrombin timeOrdered By: Karon Corrales on 10-09-2024 PT Coag (PPP) [Time] 31.8 s High 11.7-14.9 [facility] Comment on above: Order Comment: 411.2 Performed By: #### L 300.3900 ####[facility] [address] [place], [address] International normalized rat io (INR) calculationOrdered By: Carlos Cavazos on 10-06-2024 INR Coag (Bld) [Relative time] 2.7 {INR} [facility] Prothrombin Time w/INRon INR Coag (PPP) [Relative time] 2.7 {INR} Normal [facility] Comment on above: Order Comment: 411-2 Performed By: #### L 300.3900 ####[facility] [address] [place], [address] PT Coag (PPP) [Time] 29.6 s High 11.7-14.9 [facility] Comment on above: Order Comment: 411-2 Performed By: #### L 300.3900 ####[facility] [address] [place], [address] Prothrombin timeOrdered By: Carlos Cavazos on 10-06-2024 PT Coag (PPP) [Time] 29.6 s High 11.7-14.9 [facility] International normalized rat io (INR) calculationOrdered By: Karon Corrales on 10-02-2024 INR Coag (Bld) [Relative time] 2.3 {INR} [facility] Prothrombin Time w/INRon INR Coag (PPP) [Relative time] 2.3 {INR} Normal [facility] Comment on above: Order Comment: 411.2 Performed By: #### L 300.3900 ####[facility] [address] [place], [address] PT Coag (PPP) [Time] 26.0 s High 11.7-14.9 [facility] Comment on above: Order Comment: 411.2 Performed By: #### L 300.3900 ####[facility] [address] [place], [address] Prothrombin timeOrdered By: Karon Corrales on 10-02-2024 PT Coag (PPP) [Time] 26.0 s High 11.7-14.9 [facility] International normalized rat io (INR) calculationOrdered By: Karon Corrales on 09-30-2024 INR Coag (Bld) [Relative time] 3.1 {INR} [facility] Prothrombin Time w/INRon INR Coag (PPP) [Relative time] 3.1 {INR} Normal [facility] Comment on above: Order Comment: 411.2 Performed By: #### L 300.3900 ####[facility] [address] [place], [address] PT Coag (PPP) [Time] 32.6 s High 11.7-14.9 [facility] Comment on above: Order Comment: 411.2 Performed By: #### L 300.3900 ####[facility] [address] [place], [place], [phone](241 Prothrombin timeOrdered By: Kaorn Corrales on 09-30-2024 PT Coag (PPP) [Time] 32.6 s High 11.7-14.9 [facility] International normalized rat io (INR) calculationOrdered By: Karon Corrales on 09-25-2024 INR Coag (Bld) [Relative time] 2.4 {INR} [facility] Prothrombin Time w/INRon INR Coag (PPP) [Relative time] 2.4 {INR} Normal [facility] Comment on above: Order Comment: 411.2 Performed By: #### L 300.3900 ####[facility] [address] [place], [address] Prothrombin timeOrdered By: Karon Corrales on 09-25-2024 PT Coag (PPP) [Time] 26.7 s High 11.7-14.9 [facility] Comment on above: Order Comment: 411.2 Performed By: #### L 300.3900 ####[facility] [address] [place], [place], [phone] International normalized rat io (INR) calculationOrdered By: Karon Corrales on 09-22-2024 INR Coag (Bld) [Relative time] 2.5 {INR} [facility] Prothrombin Time w/INRon INR Coag (PPP) [Relative time] 2.5 {INR} Normal [facility] Comment on above: Order Comment: 411.2 Performed By: #### L 300.3900 ####[facility] [address] [place], [place], [phone] Prothrombin timeOrdered By: Karon Corrales on 09-22-2024 PT Coag (PPP) [Time] 27.4 s High 11.7-14.9 [facility] Comment on above: Order Comment: 411.2 Performed By: #### L 300.3900 ####[facility] [address] [place], [address] International normalized rat io (INR) calculationOrdered By: Karon Corrales on 09-18-2024 INR Coag (Bld) [Relative time] 2.2 {INR} [facility] Prothrombin Time w/INRon INR Coag (PPP) [Relative time] 2.2 {INR} Normal [facility] Comment on above: Order Comment: 411.2 Performed By: #### L 300.3900 ####[facility] [address] [place], [place], [phone] PT Coag (PPP) [Time] 25.1 s High 11.7-14.9 [facility] Comment on above: Order Comment: 411.2 Performed By: #### L 300.3900 ####[facility] [address] [place], [place], [address] Prothrombin timeOrdered By: Karon Corrales on 09-18-2024 PT Coag (PPP) [Time] 25.1 s High 11.7-14.9 [facility] International normalized rat io (INR) calculationOrdered By: Carlos Cavazos on 09-15-2024 INR Coag (Bld) [Relative time] 2.4 {INR} [facility] Prothrombin Time w/INRon INR Coag (PPP) [Relative time] 2.4 {INR} Normal [facility] Comment on above: Order Comment: 411-2 Performed By: #### L 300.3900 ####[facility] [address] [place], [place], [address] Prothrombin timeOrdered By: Carlos Cavazos on 09-15-2024 PT Coag (PPP) [Time] 26.3 s High 11.7-14.9 [facility] Comment on above: Order Comment: 411-2 Performed By: #### L 300.3900 ####[facility] [address] [place], [place], [address] International normalized rat io (INR) calculationOrdered By: Karon Corrales on 09-11-2024 INR Coag (Bld) [Relative time] 2.0 {INR} [facility] Prothrombin Time w/INRon INR Coag (PPP) [Relative time] 2.0 {INR} Normal [facility] Comment on above: Order Comment: 411.2 Performed By: #### L 300.3900 ####[facility] [address] [place], [place], [phone] PT Coag (PPP) [Time] 22.9 s High 11.7-14.9 [facility] Comment on above: Order Comment: 411.2 Performed By: #### L 300.3900 ####[facility] [address] [place], [place], [phone](616) Prothrombin timeOrdered By: Karon Corrales on 09-11-2024 PT Coag (PPP) [Time] 22.9 s High 11.7-14.9 [facility] International normalized rat io (INR) calculationOrdered By: Karon Corrales on 09-08-2024 INR Coag (Bld) [Relative time] 2.0 {INR} [facility] Prothrombin Time w/INRon INR Coag (PPP) [Relative time] 2.0 {INR} Normal [facility] Comment on above: Order Comment: 411.2 Performed By: #### L 300.3900 ####[facility] [address] [place], [place], [phone] PT Coag (PPP) [Time] 22.8 s High 11.7-14.9 [facility] Comment on above: Order Comment: 411.2 Performed By: #### L 300.3900 ####[facility] [address] [place], [place], [phone](591) Prothrombin timeOrdered By: Karon Corrales on 09-08-2024 PT Coag (PPP) [Time] 22.8 s High 11.7-14.9 [facility] International normalized rat io (INR) calculationOrdered By: Carlos Cavazos on 09-04-2024 INR Coag (Bld) [Relative time] 1.7 {INR} [facility] Prothrombin Time w/INRon INR Coag (PPP) [Relative time] 1.7 {INR} Normal [facility] Comment on above: Order Comment: 411-2 Performed By: #### L 300.3900 ####[facility] [address] [place], [address](357 PT Coag (PPP) [Time] 20.8 s High 11.7-14.9 [facility] Comment on above: Order Comment: 411-2 Performed By: #### L 300.3900 ####[facility] [address] [place], [address](235 Prothrombin timeOrdered By: Carlos Cavazos on 09-04-2024 PT Coag (PPP) [Time] 20.8 s High 11.7-14.9 [facility] International normalized rat io (INR) calculationOrdered By: Carlos Cavazos on 09-01-2024 INR Coag (Bld) [Relative time] 2.9 {INR} [facility] Prothrombin Time w/INRon INR Coag (PPP) [Relative time] 2.9 {INR} Normal [facility] Comment on above: Order Comment: 411-2 Performed By: #### L 300.3900 ####[facility] [address] [place], [address] PT Coag (PPP) [Time] 30.7 s High 11.7-14.9 [facility] Comment on above: Order Comment: 411-2 Performed By: #### L 300.3900 ####[facility] [address], [address](870 Prothrombin timeOrdered By: Carlos Cavazos on 09-01-2024 [...] Performed By: #### L 300.3900 ####[facility] [address] [place], [address] Prothrombin timeOrdered By: Carlos Cavazos on 08-28-2024 PT Coag (PPP) [Time] 26.7 s High 11.7-14.9 [facility] Comment on above: Order Comment: 411-2 Performed By: #### L 300.3900 ####[facility] [address] [place], [address] International normalized rat io (INR) calculationOrdered By: Karon Corrales on 08-25-2024 INR Coag (Bld) [Relative time] 1.8 {INR} [facility] Prothrombin Time w/INRon INR Coag (PPP) [Relative time] 1.8 {INR} Normal [facility] Comment on above: Order Comment: 411.2 Performed By: #### L 300.3900 ####[facility] [address] [place], [place], [phone] PT Coag (PPP) [Time] 21.6 s High 11.7-14.9 [facility] Comment on above: Order Comment: 411.2 Performed By: #### L 300.3900 ####[facility] [address] [place], [address] Prothrombin timeOrdered By: Karon Corrales on 08-25-2024 PT Coag (PPP) [Time] 21.6 s High 11.7-14.9 [facility] International normalized rat io (INR) calculationOrdered By: Karon Corrales on 08-21-2024 INR Coag (Bld) [Relative time] 1.7 {INR} [facility] PSA, total screeningOrdered By: Karon Corrales on 08-21-2024 Prostate Specific Antigen Screen 0.52 ng/mL 0.02-4.00 [facility] Comment on above: This test was perfor med using the [employer] tPSA method. Measured values of a [...] By: #### L 501.9910, L300.3900 ####[facility] [address] [place], [address] Prothrombin Time w/INRon INR Coag (PPP) [Relative time] 1.7 {INR} Normal [facility] Comment on above: Order Comment: 411.2 Performed By: #### L 501.9910, L300.3900 ####[facility] [address] [place], [address] Prothrombin timeOrdered By: Karon Corrales on 08-21-2024 PT Coag (PPP) [Time] 20.1 s High 11.7-14.9 [facility] Comment on above: Order Comment: 411.2 Performed By: #### L 501.9910, L300.3900 ####[facility] [address] [place], [place], [phone] International normalized rat io (INR) calculationOrdered By: Karon Corrales on 08-18-2024 INR Coag (Bld) [Relative time] 3.0 {INR} [facility] Prothrombin Time w/INRon INR Coag (PPP) [Relative time] 3.0 {INR} Normal [facility] Comment on above: Order Comment: 411.2 Performed By: #### L 300.3900 ####[facility] [address] [place], [place], [phone]([phone] PT Coag (PPP) [Time] 31.4 s High 11.7-14.9 [facility] Comment on above: Order Comment: 411.2 Performed By: #### L 300.3900 ####[facility] [address] [place], [place], [phone](112) Prothrombin timeOrdered By: Karon Corrales on 08-18-2024 PT Coag (PPP) [Time] 31.4 s High 11.7-14.9 [facility] International normalized rat io (INR) calculationOrdered By: Karon Corrales on 08-14-2024 INR Coag (Bld) [Relative time] 2.4 {INR} [facility] Prothrombin Time w/INRon INR Coag (PPP) [Relative time] 2.4 {INR} Normal [facility] Comment on above: Order Comment: 411.2 Performed By: #### L 300.3900 ####[facility] [address] [place], [address] PT Coag (PPP) [Time] 26.6 s High 11.7-14.9 [facility] Comment on above: Order Comment: 411.2 Performed By: #### L 300.3900 ####[facility] [address] [place], [place], [phone](135) Prothrombin timeOrdered By: Karon Corrales on 08-14-2024 PT Coag (PPP) [Time] 26.6 s High 11.7-14.9 [facility] International normalized rat io (INR) calculationOrdered By: Karon Corrales on 08-11-2024 INR Coag (Bld) [Relative time] 3.1 {INR} [facility] Prothrombin Time w/INRon INR Coag (PPP) [Relative time] 3.1 {INR} Normal [facility] Comment on above: Order Comment: 411.2 Performed By: #### L 300.3900 ####[facility] [address] [place], [place], [phone](242) PT Coag (PPP) [Time] 32.4 s High 11.7-14.9 [facility] Comment on above: Order Comment: 411.2 Performed By: #### L 300.3900 ####[facility] [address] [place], [place], [phone](018 Prothrombin timeOrdered By: Karon Corrales on 08-11-2024 PT Coag (PPP) [Time] 32.4 s High 11.7-14.9 [facility] International normalized rat io (INR) calculationOrdered By: Carlos Cavazos on 08-07-2024 INR Coag (Bld) [Relative time] 2.8 {INR} [facility] Prothrombin Time w/INRon INR Coag (PPP) [Relative time] 2.8 {INR} Normal [facility] Comment on above: Order Comment: 411-2 Performed By: #### L 300.3900 ####[facility] [address] [place], [place], [phone] PT Coag (PPP) [Time] 30.3 s High 11.7-14.9 [facility] Comment on above: Order Comment: 411-2 Performed By: #### L 300.3900 ####[facility] [address] [place], [address] Prothrombin timeOrdered By: Carlos Cavazos on 08-07-2024 PT Coag (PPP) [Time] 30.3 s High 11.7-14.9 [facility] International normalized rat io (INR) calculationOrdered By: Carlos Cavazos on 08-04-2024 INR Coag (Bld) [Relative time] 1.9 {INR} [facility] Prothrombin Time w/INRon INR Coag (PPP) [Relative time] 1.9 {INR} Normal [facility] Comment on above: Order Comment: 411-2 Performed By: #### L 300.3900 ####[facility] [address] [place], [place], [phone] PT Coag (PPP) [Time] 22.1 s High 11.7-14.9 [facility] Comment on above: Order Comment: 411-2 Performed By: #### L 300.3900 ####[facility] [address] [place], [place], [phone] Prothrombin timeOrdered By: Carlos Cavazos on 08-04-2024 PT Coag (PPP) [Time] 22.1 s High 11.7-14.9 [facility] International normalized rat io (INR) calculationOrdered By: Karon Corrales on 07-31-2024 INR Coag (Bld) [Relative time] 3.2 {INR} [facility] Prothrombin Time w/INRon INR Coag (PPP) [Relative time] 3.2 {INR} Normal [facility] Comment on above: Order Comment: 411.2 Performed By: #### L 300.3900 ####[facility] [address] [place], [place], [phone] PT Coag (PPP) [Time] 33.5 s High 11.7-14.9 [facility] Comment on above: Order Comment: 411.2 Performed By: #### L 300.3900 ####[facility] [address] [place], [place], [phone] Prothrombin timeOrdered By: Karon Corrales on 07-31-2024 PT Coag (PPP) [Time] 33.5 s High 11.7-14.9 [facility] International normalized rat io (INR) calculationOrdered By: Karon Corrales on 07-28-2024 INR Coag (Bld) [Relative time] 2.7 {INR} [facility] Prothrombin Time w/INRon INR Coag (PPP) [Relative time] 2.7 {INR} Normal [facility] Comment on above: Order Comment: 411.2 Performed By: #### L 300.3900 ####[facility] [address] [place], [place], [phone] PT Coag (PPP) [Time] 29.6 s High 11.7-14.9 [facility] Comment on above: Order Comment: 411.2 Performed By: #### L 300.3900 ####[facility] [address] [place], [place], [phone] Prothrombin timeOrdered By: Karon Corrales on 07-28-2024 PT Coag (PPP) [Time] 29.6 s High 11.7-14.9 [facility] International normalized rat io (INR) calculationOrdered By: Carlos Cavazos on 07-25-2024 INR Coag (Bld) [Relative time] 3.0 {INR} [facility] Prothrombin Time w/INRon INR Coag (PPP) [Relative time] 3.0 {INR} Normal [facility] Comment on above: Order Comment: 411-2 Performed By: #### L 300.3900 ####[facility] [address] [place], [address] Prothrombin timeOrdered By: Carlos Cavazos on 07-25-2024 PT Coag (PPP) [Time] 32.1 s High 11.7-14.9 [facility] Comment on above: Order Comment: 411-2 Performed By: #### L 300.3900 ####[facility] [address] [place], [place], [phone] International normalized rat io (INR) calculationOrdered By: Karon Corrales on 07-24-2024 INR Coag (Bld) [Relative time] 3.4 {INR} [facility] Prothrombin Time w/INRon INR Coag (PPP) [Relative time] 3.4 {INR} Normal [facility] Comment on above: Order Comment: 411.2 Performed By: #### L 300.3900 ####[facility] [address] [place], [place], [phone] Prothrombin timeOrdered By: Karon Corrales on 07-24-2024 PT Coag (PPP) [Time] 35.4 s High 11.7-14.9 [facility] Comment on above: Order Comment: 411.2 Performed By: #### L 300.3900 ####[facility] [address] [place], [place], [address] International normalized rat io (INR) calculationOrdered By: Karon Corrales on 07-21-2024 INR Coag (Bld) [Relative time] 1.6 {INR} [facility] Prothrombin Time w/INRon INR Coag (PPP) [Relative time] 1.6 {INR} Normal [facility] Comment on above: Order Comment: 411.2 Performed By: #### L 300.3900 ####[facility] [address] [place], [place], [address] PT Coag (PPP) [Time] 19.6 s High 11.7-14.9 [facility] Comment on above: Order Comment: 411.2 Performed By: #### L 300.3900 ####[facility] [address] [place], [place], [phone](015) Prothrombin timeOrdered By: Karon Corrales on 07-21-2024 PT Coag (PPP) [Time] 19.6 s High 11.7-14.9 [facility] International normalized rat io (INR) calculationOrdered By: Karon Corrales on 07-17-2024 INR Coag (Bld) [Relative time] 2.9 {INR} [facility] Prothrombin Time w/INRon INR Coag (PPP) [Relative time] 2.9 {INR} Normal [facility] Comment on above: Order Comment: 411.2 Performed By: #### L 300.3900 ####[facility] [address] [place], [place], [phone](930 PT Coag (PPP) [Time] 31.1 s High 11.7-14.9 [facility] Comment on above: Order Comment: 411.2 Performed By: #### L 300.3900 ####[facility] [address] [place], [address] Prothrombin timeOrdered By: Karon Corrales on 07-17-2024 PT Coag (PPP) [Time] 31.1 s High 11.7-14.9 [facility] International normalized rat io (INR) calculationOrdered By: Carlos Cavazos on 07-14-2024 INR Coag (Bld) [Relative time] 2.5 {INR} [facility] Prothrombin Time w/INRon INR Coag (PPP) [Relative time] 2.5 {INR} Normal [facility] Comment on above: Order Comment: 411-2 Performed By: #### L 300.3900 ####[facility] [address] [place], [address] PT Coag (PPP) [Time] 27.5 s High 11.7-14.9 [facility] Comment on above: Order Comment: 411-2 Performed By: #### L 300.3900 ####[facility] [address] [place], [address] Prothrombin timeOrdered By: Carlos Cavazos on 07-14-2024 PT Coag (PPP) [Time] 27.5 s High 11.7-14.9 [facility] International normalized rat io (INR) calculationOrdered By: Carlos Cavazos on 07-11-2024 INR Coag (Bld) [Relative time] 2.5 {INR} [facility] Prothrombin Time w/INRon INR Coag (PPP) [Relative time] 2.5 {INR} Normal [facility] Comment on above: Performed By: #### L 300.3900 ####[facility] [address] [place], [address] PT Coag (PPP) [Time] 27.7 s High 11.7-14.9 [facility] Comment on above: Performed By: #### L 300.3900 ####[facility] [address] [place], [place], [phone] Prothrombin timeOrdered By: Carlos Cavazos on 07-11-2024 PT Coag (PPP) [Time] 27.7 s High 11.7-14.9 [facility] Prothrombin Time w/INRon INR Normal [facility] Comment on above: Order Comment: 411.2 Result Comment: QNS TUBE NOT FILLED Performed By: #### L 300.3900 ####[facility] [address] [place], [place], [phone] PROTIME Normal 11.7-14.9 [facility] Comment on above: Order Comment: 411.2 Result Comment: QNS TUBE NOT FILLED Performed By: #### L 300.3900 ####[facility] [address] [place], [place], [phone](892) International normalized rat io (INR) calculationOrdered By: Kvng Crisostomo on 07-07-2024 INR Coag (Bld) [Relative time] 2.5 {INR} [facility] Prothrombin Time w/INRon INR Coag (PPP) [Relative time] 2.5 {INR} Normal [facility] Comment on above: Order Comment: 411.2 Performed By: #### L 300.3900 ####[facility] [address] [place], [address] PT Coag (PPP) [Time] 27.2 s High 11.7-14.9 [facility] Comment on above: Order Comment: 411.2 Performed By: #### L 300.3900 ####[facility] [address] [place], [address] Prothrombin timeOrdered By: Kvng Crisostomo on 07-07-2024 PT Coag (PPP) [Time] 27.2 s High 11.7-14.9 [facility] International normalized rat io (INR) calculationOrdered By: Kvng Crisostomo on 07-03-2024 INR Coag (Bld) [Relative time] 2.5 {INR} [facility] Prothrombin Time w/INRon INR Coag (PPP) [Relative time] 2.5 {INR} Normal [facility] Comment on above: Order Comment: 411.2 Performed By: #### L 300.3900 ####[facility] [address] [place], [address] PT Coag (PPP) [Time] 27.2 s High 11.7-14.9 [facility] Comment on above: Order Comment: 411.2 Performed By: #### L 300.3900 ####[facility] [address] [place], [address] Prothrombin timeOrdered By: Kvng Crisostomo on 07-03-2024 PT Coag (PPP) [Time] 27.2 s High 11.7-14.9 [facility] normalized rat io (INR) calculationOrdered By: Kvng Crisostomo on 06-30-2024 INR Coag (Bld) [Relative time] 2.4 {INR} [facility] Prothrombin Time w/INRon INR Coag (PPP) [Relative time] 2.4 {INR} Normal [facility] Comment on above: Order Comment: 411.2 Performed By: #### L 300.3900 ####[facility] [address] [place], [address] PT Coag (PPP) [Time] 26.8 s High 11.7-14.9 [facility] Comment on above: Order Comment: 411.2 Performed By: #### L 300.3900 ####[facility] [address] [place], [address] Prothrombin timeOrdered By: Kvng Crisostomo on 06-30-2024 PT Coag (PPP) [Time] 26.8 s High 11.7-14.9 [facility] normalized rat io (INR) calculationOrdered By: Kvng Crisostomo on 06-26-2024 INR Coag (Bld) [Relative time] 2.5 {INR} [facility] Prothrombin Time w/INRon INR Coag (PPP) [Relative time] 2.5 {INR} Normal [facility] Comment on above: Order Comment: 411.2 Performed By: #### L 300.3900 ####[facility] [address] [place], [address] PT Coag (PPP) [Time] 27.5 s High 11.7-14.9 [facility] Comment on above: Order Comment: 411.2 Performed By: #### L 300.3900 ####[facility] [address] [place], [place], [phone]([phone] Prothrombin timeOrdered By: Kvng Crisostomo on 06-26-2024 PT Coag (PPP) [Time] 27.5 s High 11.7-14.9 [facility] normalized rat io (INR) calculationOrdered By: Carlos Cavazos on 06-23-2024 INR Coag (Bld) [Relative time] 2.8 {INR} [facility] Prothrombin Time w/INRon INR Coag (PPP) [Relative time] 2.8 {INR} Normal [facility] Comment on above: Order Comment: 411-2 Performed By: #### L 300.3900 ####[facility] [address] [place], [address] PT Coag (PPP) [Time] 29.7 s High 11.7-14.9 [facility] Comment on above: Order Comment: 411-2 Performed By: #### L 300.3900 ####[facility] [address] [place], [address] Prothrombin timeOrdered By: Carlos Cavazos on 06-23-2024 PT Coag (PPP) [Time] 29.7 s High 11.7-14.9 [facility] normalized rat io (INR) calculationOrdered By: Kvng Crisostomo on 06-19-2024 INR Coag (Bld) [Relative time] 2.6 {INR} [facility] Prothrombin Time w/INRon INR Coag (PPP) [Relative time] 2.6 {INR} Normal [facility] Comment on above: Order Comment: 411.2 Performed By: #### L 300.3900 ####[facility] [address] [place], [address] PT Coag (PPP) [Time] 28.6 s High 11.7-14.9 [facility] Comment on above: Order Comment: 411.2 Performed By: #### L 300.3900 ####[facility] [address] [place], [address] Prothrombin timeOrdered By: Kvng Crisostomo on 06-19-2024 PT Coag (PPP) [Time] 28.6 s High 11.7-14.9 [facility] normalized rat io (INR) calculationOrdered By: Kvng Crisostomo on 06-16-2024 INR Coag (Bld) [Relative time] 2.5 {INR} [facility] Prothrombin Time w/INRon INR Coag (PPP) [Relative time] 2.5 {INR} Normal [facility] Comment on above: Order Comment: 411.2 Performed By: #### L 300.3900 ####[facility] [address] [place], [address] PT Coag (PPP) [Time] 27.3 s High 11.7-14.9 [facility] Comment on above: Order Comment: 411.2 Performed By: #### L 300.3900 ####[facility] [address] [place], [address] Prothrombin timeOrdered By: Kvng Crisostomo on 06-16-2024 PT Coag (PPP) [Time] 27.3 s High 11.7-14.9 [facility] normalized rat io (INR) calculationOrdered By: Kvng Crisostomo on 06-12-2024 INR Coag (Bld) [Relative time] 2.1 {INR} [facility] Prothrombin Time w/INRon INR Coag (PPP) [Relative time] 2.1 {INR} Normal [facility] Comment on above: Order Comment: 411.2 Performed By: #### L 300.3900 ####[facility] [address] [place], [address] PT Coag (PPP) [Time] 24.0 s High 11.7-14.9 [facility] Comment on above: Order Comment: 411.2 Performed By: #### L 300.3900 ####[facility] [address] [place], [address] Prothrombin timeOrdered By: Kvng Crisostomo on 06-12-2024 PT Coag (PPP) [Time] 24.0 s High 11.7-14.9 [facility] normalized rat io (INR) calculationOrdered By: Carlos Cavazos on 06-09-2024 INR Coag (Bld) [Relative time] 1.5 {INR} [facility] Prothrombin Time w/INRon INR Coag (PPP) [Relative time] 1.5 {INR} Normal [facility] Comment on above: Order Comment: 411-2 Performed By: #### L 300.3900 ####[facility] [address] [place], [address] PT Coag (PPP) [Time] 18.0 s High 11.7-14.9 [facility] Comment on above: Order Comment: 411-2 Performed By: #### L 300.3900 ####[facility] [address], [address] Prothrombin timeOrdered By: Carlos Cavazos on 06-09-2024 PT Coag (PPP) [Time] 18.0 s High 11.7-14.9 [facility] normalized rat io (INR) calculationOrdered By: Kvng Crisostomo on 06-05-2024 INR Coag (Bld) [Relative time] 2.8 {INR} [facility] Prothrombin Time w/INRon INR Coag (PPP) [Relative time] 2.8 {INR} Normal [facility] Comment on above: Order Comment: 411.2 Performed By: #### L 300.3900 ####[facility] [address] [place], [address] PT Coag (PPP) [Time] 30.3 s High 11.7-14.9 [facility] Comment on above: Order Comment: 411.2 Performed By: #### L 300.3900 ####[facility] [address] [place], [address] Prothrombin timeOrdered By: Kvng Crisostomo on 06-05-2024 PT Coag (PPP) [Time] 30.3 s High 11.7-14.9 [facility] normalized rat io (INR) calculationOrdered By: Kvng Crisostomo on 06-02-2024 INR Coag (Bld) [Relative time] 2.6 {INR} [facility] Prothrombin Time w/INRon INR Coag (PPP) [Relative time] 2.6 {INR} Normal [facility] Comment on above: Order Comment: 411.2 Performed By: #### L 300.3900 ####[facility] [address] [place], [address] PT Coag (PPP) [Time] 28.6 s High 11.7-14.9 [facility] Comment on above: Order Comment: 411.2 Performed By: #### L 300.3900 ####[facility] [address] [facility] [address] Prothrombin timeOrdered By: Kvng Crisostomo on 06-02-2024 PT Coag (PPP) [Time] 28.6 s High 11.7-14.9 [facility] normalized rat io (INR) calculationOrdered By: Kvng Crisostomo on 05-29-2024 INR Coag (Bld) [Relative time] 2.5 {INR} [facility] Prothrombin Time w/INRon INR Coag (PPP) [Relative time] 2.5 {INR} Normal [facility] Comment on above: Order Comment: 411.2 Performed By: #### L 300.3900 ####[facility] [address] [place], [address] PT Coag (PPP) [Time] 27.7 s High 11.7-14.9 [facility] Comment on above: Order Comment: 411.2 Performed By: #### L 300.3900 ####[facility] [address] [place], [address] Prothrombin timeOrdered By: Kvng Crisostomo on 05-29-2024 PT Coag (PPP) [Time] 27.7 s High 11.7-14.9 [facility] normalized rat io (INR) calculationOrdered By: Carlos Cavazos on 05-26-2024 INR Coag (Bld) [Relative time] 2.2 {INR} [facility] Prothrombin Time w/INRon INR Coag (PPP) [Relative time] 2.2 {INR} Normal [facility] Comment on above: Order Comment: 411-2 Performed By: #### L 300.3900 ####[facility] [address] [place], [place], [phone] PT Coag (PPP) [Time] 24.5 s High 11.7-14.9 [facility] Comment on above: Order Comment: 411-2 Performed By: #### L 300.3900 ####[facility] [address] [place], [address] Prothrombin timeOrdered By: Carlos Cavazos on 05-26-2024 PT Coag (PPP) [Time] 24.5 s High 11.7-14.9 [facility] normalized rat io (INR) calculationOrdered By: Kvng Crisostomo on 05-22-2024 INR Coag (Bld) [Relative time] 2.8 {INR} [facility] Prothrombin Time w/INRon INR Coag (PPP) [Relative time] 2.8 {INR} Normal [facility] Comment on above: Order Comment: 411.2 Performed By: #### L 300.3900 ####[facility] [address] [place], [place], [phone] PT Coag (PPP) [Time] 30.3 s High 11.7-14.9 [facility] Comment on above: Order Comment: 411.2 Performed By: #### L 300.3900 ####[facility] [address] [place], [address] Prothrombin timeOrdered By: Kvng Crisostomo on 05-22-2024 PT Coag (PPP) [Time] 30.3 s High 11.7-14.9 [facility] normalized rat io (INR) calculationOrdered By: Kvng Crisostomo on 05-20-2024 INR Coag (Bld) [Relative time] 4.0 {INR} High [facility] Comment on above: CRITICAL VALUE CASEY D TO DRAUIGSLS77/14/25 08 Diana Srinivasan.RESULTS READ BACK BY SAME. Prothrombin Time w/INRon INR Coag (PPP) [Relative time] 4.0 {INR} Invalid Interpretation Code [facility] Comment on above: Order Comment: 411.2 Result Comment: CRIT ICAL VALUE CALLED TO OPCTEYUXU45/14/25 [facility] Diana Mattson.RESULTS READ BACK BY SAME. Performed By: #### L 300.3900 ####[facility] [address] [place], [place], [phone]) PT Coag (PPP) [Time] 39.9 s High 11.7-14.9 [facility] Comment on above: Order Comment: 411.2 Performed By: #### L 300.3900 ####[facility] [address] [place], [place], [phone](860) Prothrombin timeOrdered By: Kvng Crisostomo on 05-20-2024 PT Coag (PPP) [Time] 39.9 s High 11.7-14.9 [facility] normalized rat io (INR) calculationOrdered By: Kvng Crisostomo on 05-19-2024 INR Coag (Bld) [Relative time] 3.4 {INR} [facility] Prothrombin Time w/INRon INR Coag (PPP) [Relative time] 3.4 {INR} Normal [facility] Comment on above: Order Comment: 411.2 Performed By: #### L 300.3900 ####[facility] [address] [place], [place], [phone](311) PT Coag (PPP) [Time] 35.4 s High 11.7-14.9 [facility] Comment on above: Order Comment: 411.2 Performed By: #### L 300.3900 ####[facility] [address] [place], [place], [phone](549) Prothrombin timeOrdered By: Kvng Crisostomo on 05-19-2024 PT Coag (PPP) [Time] 35.4 s High 11.7-14.9 [facility] normalized rat io (INR) calculationOrdered By: Kvng Crisostomo on 05-15-2024 INR Coag (Bld) [Relative time] 2.6 {INR} [facility] Prothrombin Time w/INRon INR Coag (PPP) [Relative time] 2.6 {INR} Normal [facility] Comment on above: Order Comment: 411.2 Performed By: #### L 300.3900 ####[facility] [address] [place], [place], [phone] PT Coag (PPP) [Time] 28.7 s High 11.7-14.9 [facility] Comment on above: Order Comment: 411.2 Performed By: #### L 300.3900 ####[facility] [address] [place], [address] Prothrombin timeOrdered By: Kvng Crisostomo on 05-15-2024 PT Coag (PPP) [Time] 28.7 s High 11.7-14.9 [facility] normalized rat io (INR) calculationOrdered By: Carlos Cavazos on 05-12-2024 INR Coag (Bld) [Relative time] 2.1 {INR} [facility] Prothrombin Time w/INRon INR Coag (PPP) [Relative time] 2.1 {INR} Normal [facility] Comment on above: Order Comment: 411-2 Performed By: #### L 300.3900 ####[facility] [address] [place], [address] PT Coag (PPP) [Time] 24.1 s High 11.7-14.9 [facility] Comment on above: Order Comment: 411-2 Performed By: #### L 300.3900 ####[facility] [address] [place], [place], [phone] Prothrombin timeOrdered By: Carlos Cavazos on 05-12-2024 PT Coag (PPP) [Time] 24.1 s High 11.7-14.9 [facility] normalized rat io (INR) calculationOrdered By: Kvng Crisostomo on 05-09-2024 INR Coag (Bld) [Relative time] 3.4 {INR} [facility] Prothrombin Time w/INRon INR Coag (PPP) [Relative time] 3.4 {INR} Normal [facility] Comment on above: Order Comment: 411.2 Performed By: #### L 300.3900 ####[facility] [address] [place], [place], [phone] PT Coag (PPP) [Time] 35.4 s High 11.7-14.9 [facility] Comment on above: Order Comment: 411.2 Performed By: #### L 300.3900 ####[facility] [address] [place], [place], [phone] Prothrombin timeOrdered By: Kvng Crisostomo on 05-09-2024 PT Coag (PPP) [Time] 35.4 s High 11.7-14.9 [facility] normalized rat io (INR) calculationOrdered By: Kvng Crisostomo on 05-08-2024 INR Coag (Bld) [Relative time] 4.1 {INR} High [facility] Comment on above: CRITICAL VALUE CASEY D TO [facility]05/08/24 0950 Karen Jamison.RESULTS READ BACK BY SAME. Prothrombin Time w/INRon INR Coag (PPP) [Relative time] 4.1 {INR} Invalid Interpretation Code [facility] Comment on above: Order Comment: 411.2 Result Comment: CRIT ICAL VALUE CALLED TO WIL[facility] HAIRSTONIA05/08/24 0950 Karen Jamison.RESULTS READ BACK BY SAME. Performed By: #### L 300.3900 ####[facility] [address] [place], [address] PT Coag (PPP) [Time] 40.8 s High 11.7-14.9 [facility] Comment on above: Order Comment: 411.2 Performed By: #### L 300.3900 ####[facility] [address] [place], [address] Prothrombin timeOrdered By: Babbaljeet Andressa on 05-08-2024 PT Coag (PPP) [Time] 40.8 s High 11.7-14.9 [facility] normalized rat io (INR) calculationOrdered By: Babbaljeet Crisostomo on 05-05-2024 INR Coag (Bld) [Relative time] 3.2 {INR} [facility] Prothrombin Time w/INRon INR Coag (PPP) [Relative time] 3.2 {INR} Normal [facility] Comment on above: Order Comment: 411.2 Performed By: #### L 300.3900 ####[facility] [address] [place], [address] PT Coag (PPP) [Time] 32.5 s High 11.7-14.9 [facility] Comment on above: Order Comment: 411.2 Performed By: #### L 300.3900 ####[facility] [address] [place], [address] Prothrombin timeOrdered By: Babbaljeet Crisostomo on 05-05-2024 PT Coag (PPP) [Time] 32.5 s High 11.7-14.9 [facility] normalized rat io (INR) calculationOrdered By: Babbaljeet Crisostomo on 05-01-2024 INR Coag (Bld) [Relative time] 3.1 {INR} [facility] Prothrombin Time w/INRon INR Coag (PPP) [Relative time] 3.1 {INR} Normal [facility] Comment on above: Order Comment: 411.2 Performed By: #### L 300.3900 ####[facility] [address] [place], [address] PT Coag (PPP) [Time] 31.9 s High 11.7-14.9 [facility] Comment on above: Order Comment: 411.2 Performed By: #### L 300.3900 ####[facility] [address] [place], [address] Prothrombin timeOrdered By: Kvng Crisostomo on 05-01-2024 PT Coag (PPP) [Time] 31.9 s High 11.7-14.9 [facility] normalized rat io (INR) calculationOrdered By: Carlos Cavazos on 04-28-2024 INR Coag (Bld) [Relative time] 2.6 {INR} [facility] Prothrombin Time w/INRon INR Coag (PPP) [Relative time] 2.6 {INR} Normal [facility] Comment on above: Order Comment: 411-2 Performed By: #### L 300.3900 ####[facility] [address] [place], [address] PT Coag (PPP) [Time] 27.3 s High 11.7-14.9 [facility] Comment on above: Order Comment: 411-2 Performed By: #### L 300.3900 ####[facility] [address] [place], [address] Prothrombin timeOrdered By: Carlos Cavazos on 04-28-2024 PT Coag (PPP) [Time] 27.3 s High 11.7-14.9 [facility] normalized rat io (INR) calculationOrdered By: Kvng Crisostomo on 04-24-2024 INR Coag (Bld) [Relative time] 3.6 {INR} [facility] Prothrombin Time w/INRon INR Coag (PPP) [Relative time] 3.6 {INR} Normal [facility] Comment on above: Order Comment: 411.2 Performed By: #### L 300.3900 ####[facility] [address] [place], [address] PT Coag (PPP) [Time] 35.6 s High 11.7-14.9 [facility] Comment on above: Order Comment: 411.2 Performed By: #### L 300.3900 ####[facility] [address] [place], [address] Prothrombin timeOrdered By: Kvng Crisostomo on 04-24-2024 PT Coag (PPP) [Time] 35.6 s High 11.7-14.9 [facility] International normalized rat io (INR) calculationOrdered By: Carlos Cavazos on 04-21-2024 INR Coag (Bld) [Relative time] 2.8 {INR} [facility] Prothrombin Time w/INRon INR Coag (PPP) [Relative time] 2.8 {INR} Normal [facility] Comment on above: Order Comment: 411-2 Performed By: #### L 300.3900 ####[facility] [address] [place], [address] PT Coag (PPP) [Time] 29.4 s High 11.7-14.9 [facility] Comment on above: Order Comment: 411-2 Performed By: #### L 300.3900 ####[facility] [address] [place], [address] Prothrombin timeOrdered By: Carlos Cavazos on 04-21-2024 PT Coag (PPP) [Time] 29.4 s High 11.7-14.9 [facility] normalized rat io (INR) calculationOrdered By: Kvng Crisostomo on 04-17-2024 INR Coag (Bld) [Relative time] 3.1 {INR} [facility] Prothrombin Time w/INRon INR Coag (PPP) [Relative time] 3.1 {INR} Normal [facility] Comment on above: Order Comment: 411.2 Performed By: #### L 300.3900 ####[facility] [address] [place], [place], [phone]([phone]) Prothrombin timeOrdered By: Kvng Crisostomo on 04-17-2024 PT Coag (PPP) [Time] 31.3 s High 11.7-14.9 [facility] Comment on above: Order Comment: 411.2 Performed By: #### L 300.3900 ####[facility] [address] [place], [place], [phone](417) International normalized rat io (INR) calculationOrdered By: Kvng Crisostomo on 04-14-2024 INR Coag (Bld) [Relative time] 3.3 {INR} [facility] Prothrombin Time w/INRon INR Coag (PPP) [Relative time] 3.3 {INR} Normal [facility] Comment on above: Order Comment: 411.2 Performed By: #### L 300.3900 ####[facility] [address] [place], [place], [phone](388) PT Coag (PPP) [Time] 33.2 s High 11.7-14.9 [facility] Comment on above: Order Comment: 411.2 Performed By: #### L 300.3900 ####[facility] [address] [place], [place], [phone](496) Prothrombin timeOrdered By: Kvng Crisostomo on 04-14-2024 PT Coag (PPP) [Time] 33.2 s High 11.7-14.9 [facility] International normalized rat io (INR) calculationOrdered By: Kvng Crisostomo on 04-10-2024 INR Coag (Bld) [Relative time] 2.8 {INR} [facility] Prothrombin Time w/INRon INR Coag (PPP) [Relative time] 2.8 {INR} Normal [facility] Comment on above: Order Comment: 411.2 Performed By: #### L 300.3900 ####[facility] [address] [place], [address] PT Coag (PPP) [Time] 29.2 s High 11.7-14.9 [facility] Comment on above: Order Comment: 411.2 Performed By: #### L 300.3900 ####[facility] [address] [place], [address] Prothrombin timeOrdered By: Kvng Crisostomo on 04-10-2024 PT Coag (PPP) [Time] 29.2 s High 11.7-14.9 [facility] International normalized rat io (INR) calculationOrdered By: Carlos Cavazos on 04-07-2024 INR Coag (Bld) [Relative time] 2.7 {INR} [facility] Prothrombin Time w/INRon INR Coag (PPP) [Relative time] 2.7 {INR} Normal [facility] Comment on above: Order Comment: 411-2 Performed By: #### L 300.3900 ####[facility] [address] [place], [address] PT Coag (PPP) [Time] 28.1 s High 11.7-14.9 [facility] Comment on above: Order Comment: 411-2 Performed By: #### L 300.3900 ####[facility] [address] [place], [address] Prothrombin timeOrdered By: Carlos Cavazos on 04-07-2024 PT Coag (PPP) [Time] 28.1 s High 11.7-14.9 [facility] International normalized rat io (INR) calculationOrdered By: Kvng Crisostomo on 04-04-2024 INR Coag (Bld) [Relative time] 2.8 {INR} [facility] Prothrombin Time w/INRon INR Coag (PPP) [Relative time] 2.8 {INR} Normal [facility] Comment on above: Order Comment: 411.2 Performed By: #### L 300.3900 ####[facility] [address] [place], [address] PT Coag (PPP) [Time] 28.9 s High 11.7-14.9 [facility] Comment on above: Order Comment: 411.2 Performed By: #### L 300.3900 ####[facility] [address] [place], [address] Prothrombin timeOrdered By: Kvng Crisostomo on 04-04-2024 PT Coag (PPP) [Time] 28.9 s High 11.7-14.9 [facility] International normalized rat io (INR) calculationOrdered By: Carlos Cavazos on 03-31-2024 INR Coag (Bld) [Relative time] 2.6 {INR} [facility] Prothrombin Time w/INRon INR Coag (PPP) [Relative time] 2.6 {INR} Normal [facility] Comment on above: Order Comment: 411-2 Performed By: #### L 300.3900 ####[facility] [address] [place], [address] PT Coag (PPP) [Time] 27.3 s High 11.7-14.9 [facility] Comment on above: Order Comment: 411-2 Performed By: #### L 300.3900 ####[facility] [address] [place], [address] Prothrombin timeOrdered By: Carlos Cavazos on 03-31-2024 PT Coag (PPP) [Time] 27.3 s High 11.7-14.9 [facility] International normalized rat io (INR) calculationOrdered By: [facility] on 03-27-2024 INR Coag (Bld) [Relative time] 2.2 {INR} [facility] Prothrombin Time w/INRon INR Coag (PPP) [Relative time] 2.2 {INR} Normal [facility] Comment on above: Order Comment: 411.2 Performed By: #### L 300.3900 ####[facility] [address] [place], [address] PT Coag (PPP) [Time] 24.3 s High 11.7-14.9 [facility] Comment on above: Order Comment: 411.2 Performed By: #### L 300.3900 ####[facility] [address] [place], [address] Prothrombin timeOrdered By: [facility] on 03-27-2024 PT Coag (PPP) [Time] 24.3 s High 11.7-14.9 [facility] International normalized rat io (INR) calculationOrdered By: Kvng Crisostomo on 03-24-2024 INR Coag (Bld) [Relative time] 1.8 {INR} [facility] Prothrombin Time w/INRon INR Coag (PPP) [Relative time] 1.8 {INR} Normal [facility] Comment on above: Order Comment: 411.2 Performed By: #### L 300.3900 ####[facility] [address] [place], [address] PT Coag (PPP) [Time] 20.7 s High 11.7-14.9 [facility] Comment on above: Order Comment: 411.2 Performed By: #### L 300.3900 ####[facility] [address] [place], [address] Prothrombin timeOrdered By: Kvng Crisostomo on 03-24-2024 PT Coag (PPP) [Time] 20.7 s High 11.7-14.9 [facility] International normalized rat io (INR) calculationOrdered By: [facility] on 03-20-2024 INR Coag (Bld) [Relative time] 1.8 {INR} [facility] Prothrombin Time w/INRon INR Coag (PPP) [Relative time] 1.8 {INR} Normal [facility] Comment on above: Order Comment: 411.2 Performed By: #### L [id number] ####[facility] [address] [place], [address] PT Coag (PPP) [Time] 20.9 s High 11.7-14.9 [facility] Comment on above: Order Comment: 411.2 Performed By: #### L [id number] ####[facility] [address] [place], [address] Prothrombin timeOrdered By: [facility] on 03-20-2024 PT Coag (PPP) [Time] 20.9 s High 11.7-14.9 [facility] International normalized rat io (INR) calculationOrdered By: Kvng Crisostomo on 03-19-2024 INR Coag (Bld) [Relative time] 2.4 {INR} [facility] Prothrombin Time w/INRon INR Coag (PPP) [Relative time] 2.4 {INR} Normal [facility] Comment on above: Order Comment: 411.2 Performed By: #### L [id number] ####[facility] [address] [place], [address] PT Coag (PPP) [Time] 26.4 s High 11.7-14.9 [facility] Comment on above: Order Comment: 411.2 Performed By: #### L [id number] ####[facility] [address] [place], [address] Prothrombin timeOrdered By: Kvng Crisostomo on 03-19-2024 PT Coag (PPP) [Time] 26.4 s High 11.7-14.9 [facility] International normalized rat io (INR) calculationOrdered By: [facility] on 03-18-2024 INR Coag (Bld) [Relative time] 3.2 {INR} [facility] Prothrombin timeOrdered By: [facility] on 03-18-2024 PT Coag (PPP) [Time] 32.3 s High 11.7-14.9 [facility] International normalized rat io (INR) calculationOrdered By: [facility] on 03-17-2024 INR Coag (Bld) [Relative time] 3.6 {INR} [facility] Prothrombin timeOrdered By: [facility] on 03-17-2024 PT Coag (PPP) [Time] 35.7 s High 11.7-14.9 [facility] International normalized rat io (INR) calculationOrdered By: Carlos Cavazos on 03-14-2024 INR Coag (Bld) [Relative time] 3.5 {INR} [facility] Prothrombin timeOrdered By: Carlos Cavazos on 03-14-2024 PT Coag (PPP) [Time] 35.0 s High 11.7-14.9 [facility] International normalized rat io (INR) calculationOrdered By: [facility] on 03-13-2024 INR Coag (Bld) [Relative time] 3.2 {INR} [facility] Prothrombin timeOrdered By: [facility] on 03-13-2024 PT Coag (PPP) [Time] 32.2 s High 11.7-14.9 [facility] Office Visiton 09-13-2023 Follow-up visit [id number] GurpreetTamie 1950 M [facility] Provider Department Center 09/13/2023 [id number] BUCK [facility] URO None Family History Problem Relation Age of Onset Heart disease Father Cancer Mother Family Status - Relation Status Age at Father Mother Level of Service:40181 [place] OFFICE/OUTPATIENT ESTABLISHED MOD MDM 30 MIN Reason for Visit and Comments: left flank pain [Other] - 8/10 pain when touched Normal [facility] Progress Noteon 09-13-2023 Progress Note [...] adult (CMS/HCC) (HCC) Kidney stone Neuropathy 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 Normal [facility] CT ABDOMEN PELVIS WO IV CONT Kelly 09-07-2023 CT ABDOMEN PELVIS WO IV CONTRAST Patient Name: ANDREW SIFUENTES : 1950 [id number] Exam Date/Time: 09/06/2023 18:14 Procedure: CT ABDOMEN [...] a kidney stone; pt has a hernia [place] [id number] 36 Lm on daughters vm t o advise them to call the number for the assistant plant manager to get clarification, and to call back with further questions [place] [id number] 36 Yes, they will need to call the number given to them. [facility] 36 Please advise [address] 08-21-2023 36 Name of caller: Zion holt Contact phone number: [phone] Relationship to Patient: patient Provider: MD Quinn Practice: [facility] Urology Chief Complaint/Reason [...] to reach out to call Maury Cedeño Top Inventory Control Executive at [facility] [phone] to get clarifications. TEA did reach back out to [facility] and advised and provider Maury's #. Please advise Best time of day caller can be reached: Any Patient advised that office/PCP has 24-48 business hours to return their call: N/A Normal [facility] Laboratory - CoagulationOrde red By: Carlos Cavazos on 08-21-2023 INR Coag (Bld) [Relative time] 2.7 {INR} [facility] PT Coag (PPP) [Time] 28.9 s 11.7-14.9 [facility] Office Visiton 08-13-2023 Follow-up visit [id number] Tamie Sifuentes cheng R 1950 M [facility] Provider Department Center 08/13/2023 [id number] BUCK [facility] URO None Family History Problem Relation Age of Onset Heart disease Father Cancer Mother Family Status - Relation Status Age at Father Mother Level of Service:20337 [place] OFFICE/OUTPATIENT NEW MODERATE MDM 45 MINUTES Reason for Visit and Comments: New Patient [542] - Bilateral flank pain, hx of kidney stones Nephrolithiasis [460336] Normal [facility] Progress Noteon 08-13-2023 Progress Note [...] adult (CMS/HCC) (HCC) Kidney stone 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 Normal [facility] No Panel InformationOrdered By: Carlos Cavazos on 08-03-2023 Levetiracetam (Keppra) Level 32.4 ug/mL 10.0-40.0 [facility] Comment on above: Performed at: [address] [id number] Director: Alpesh Vázquez MD, Phone: [phone] Basophil percentageOrdered B y: Carlos Cavazos on 07-20-2023 Chloride [Moles/Vol] 106 mmol/L 98-107 [facility] Glucose [Mass/Vol] 98 mg/dL 74-106 [facility] Hemoglobin (Bld) [Mass/Vol] 12.5 g/dL 13.0-16.5 [facility] Potassium [Moles/Vol] 4.3 mmol/L 3.5-5.1 [facility] Sodium [Moles/Vol] 135 mmol/L 136-145 [facility] WBC (Bld) [#/Vol] 13.0 10*3/uL 4.4-11.0 [facility] Determination of erythrocyte mean corpuscular [...] Hospital MCHC (RBC) [Mass/Vol] 31.3 g/dL 32-36 [facility] Platelet mean volume (Bld) [Entitic vol] 10.7 fL 6.2-12.0 [facility] Platelets (Bld) [#/Vol] 260 10*3/uL 150-450 [facility] No Panel InformationOrdered By: Carlos Cavazos on 07-20-2023 Estimated GFR (MDRD) Amer 114 mL/min >60 [facility] Comment on above: GFR Calc Estimated GFR (MDRD) Non-Af Amer 94 mL/min >60 [facility] Comment on above: Non- GFR Calc RBC Auto (Bld) [#/Vol]Ordere d By: Carlos Cavazos on 07-20-2023 RBC (Bld) [#/Vol] 4.63 10*6/uL 4.6-6.2 [facility] Serum or plasma calcium oral urement (mass/volume)Ordered By: Carlos Cavazos on 07-20-2023 Calcium [Mass/Vol] 8.6 mg/dL 8.5-10.1 [facility] Serum or plasma creatinine m easurement (mass/volume)Ordered By: Carlos Cavazos on 07-20-2023 Creatinine [Mass/Vol] 0.85 mg/dL 0.70-1.30 [facility] Comment on above: The validity of the [...] on 07-18-2023 Chloride [Moles/Vol] 102 mmol/L 98-107 [facility] Glucose [Mass/Vol] 96 mg/dL 74-106 [facility] Hemoglobin (Bld) [Mass/Vol] 12.3 g/dL 13.0-16.5 [facility] Potassium [Moles/Vol] 4.2 mmol/L 3.5-5.1 [facility] Sodium [Moles/Vol] 136 mmol/L 136-145 [facility] WBC (Bld) [#/Vol] 14.7 10*3/uL 4.4-11.0 [facility] Determination of erythrocyte mean corpuscular [...] Hospital MCHC (RBC) [Mass/Vol] 31.3 g/dL 32-36 [facility] Platelet mean volume (Bld) [Entitic vol] 10.3 [...] RBC (Bld) [#/Vol] 4.60 10*6/uL 4.6-6.2 [facility] Serum or plasma calcium oral urement (mass/volume)Ordered By: Carlos Cavazos on 07-18-2023 Calcium [Mass/Vol] 8.9 mg/dL 8.5-10.1 [facility] Serum or plasma creatinine m easurement (mass/volume)Ordered By: Carlos Cavazos on 07-18-2023 Creatinine [Mass/Vol] 0.86 mg/dL 0.70-1.30 [facility] Comment on above: The validity of the [...] 07-17-2023 Basophil percentage 0-5 SEEN /hpf 0-5 [facility] Bilirubin Test strip Ql (U)O rdered By: [...] Mucus Ql (Urine sed) 0 SEEN /hpf [facility] Nitrite Test strip Ql (U)Ord ered By: [...] 07-17-2023 Urobilinogen Ql (U) Normal mg/dl Normal [facility] Absolute lymphocyte countOrd ered By: Carlos Cavazos [...] [facility] Chloride [Moles/Vol] 105 mmol/L 98-107 [facility] Eosinophils/100 WBC (Bld) 2.0 % 0-5 [facility] Glucose [Mass/Vol] 93 mg/dL 74-106 [facility] Hemoglobin (Bld) [Mass/Vol] 12.1 g/dL 13.0-16.5 [facility] Monocytes/100 WBC (Bld) 5.3 % 0-10 [facility] Neutrophils (Bld) [#/Vol] 5.2 10*3/uL 2.0-7.7 [facility] Neutrophils/100 WBC (Bld) 42.8 % 47-70 [facility] Potassium [Moles/Vol] 4.3 mmol/L 3.5-5.1 [facility] Sodium [Moles/Vol] 138 mmol/L 136-145 [facility] WBC (Bld) [#/Vol] 12.3 10*3/uL 4.4-11.0 [facility] Blood manual differential co mment [...] Chemistry and C hemistry - challengeOrdered By: Carlso Cavazos on 07-16-2023 CO2 [Moles/Vol] 25.0 mmol/L 21.0-32.0 [facility] Urea nitrogen/Creatinine [Mass ratio] 21.0 mg/mg 10-20 [facility] Laboratory - CoagulationOrde red By: Carlos Cavazos on 07-16-2023 INR Coag (Bld) [Relative time] 2.4 {INR} [facility] PT Coag (PPP) [Time] 25.7 s 11.7-14.9 [facility] Laboratory - Hematology and Cell countsOrdered By: Carlos Cavazos on 07-16-2023 MCH (RBC) [Entitic mass] 27.1 pg 27.0-32.0 [facility] MCHC (RBC) [Mass/Vol] 31.3 g/dL 32-36 [facility] Nucleated RBC/100 WBC (Bld) [Ratio] 0 % [...] above: Non- GFR Calc Reactive Lymphocytes 1+ [facility] RBC Auto (Bld) [#/Vol]Ordere d By: Carlos Cavazos on 07-16-2023 RBC (Bld) [#/Vol] 4.46 10*6/uL 4.6-6.2 [facility] Serum or plasma calcium oral urement (mass/volume)Ordered By: Carlos Cavazos on 07-16-2023 Calcium [Mass/Vol] 9.0 mg/dL 8.5-10.1 [facility] Serum or plasma creatinine m easurement (mass/volume)Ordered By: Carlos Cavazos on 07-16-2023 Creatinine [Mass/Vol] 0.90 mg/dL 0.70-1.30 [facility] Comment on above: The validity of the [...] [facility] Chloride [Moles/Vol] 107 mmol/L 98-107 [facility] Eosinophils/100 WBC (Bld) 1.7 % 0-5 [facility] Glucose [Mass/Vol] 96 mg/dL 74-106 [facility] Hemoglobin (Bld) [Mass/Vol] 13.5 g/dL 13.0-16.5 [facility] Monocytes/100 WBC (Bld) 4.3 % 0-10 [facility] Neutrophils (Bld) [#/Vol] 5.3 10*3/uL 2.0-7.7 [facility] Neutrophils/100 WBC (Bld) 46.0 % 47-70 [facility] Potassium [Moles/Vol] 4.0 mmol/L 3.5-5.1 [facility] Sodium [Moles/Vol] 139 mmol/L 136-145 [facility] WBC (Bld) [#/Vol] 11.5 10*3/uL 4.4-11.0 [facility] Determination of erythrocyte mean corpuscular [...] Hospital MCHC (RBC) [Mass/Vol] 32.0 g/dL 32-36 [facility] Nucleated RBC/100 WBC (Bld) [Ratio] 0 % [...] [facility] Comment on above: Performed at: [address] [id number] Director: Alpesh Vázquez MD, Phone: [phone] RBC Auto (Bld) [#/Vol]Ordere d By: Carlos Cavazos on 07-13-2023 RBC (Bld) [#/Vol] 4.90 10*6/uL 4.6-6.2 [facility] Serum or plasma calcium oral urement (mass/volume)Ordered By: Carlos Cavazos on 07-13-2023 Calcium [Mass/Vol] 9.1 mg/dL 8.5-10.1 [facility] Serum or plasma creatinine m easurement (mass/volume)Ordered By: Carlos Cavazos on 07-13-2023 Creatinine [Mass/Vol] 0.82 mg/dL 0.70-1.30 [facility] Comment on above: The validity of the [...] PT Coag (PPP) [Time] 26.3 s 11.7-14.9 [facility] Laboratory - CoagulationOrde red By: Carlos Cavazos on 07-02-2023 INR Coag (Bld) [Relative time] 1.5 {INR} [facility] PT Coag (PPP) [Time] 18.5 s 11.7-14.9 [facility] Laboratory - CoagulationOrde red By: Carlos Cavazos on 06-28-2023 INR Coag (Bld) [Relative time] 1.7 {INR} [facility] PT Coag (PPP) [Time] 20.5 s 11.7-14.9 [facility] 36on 06-25-2023 36 [facility] called in stating appt scheduled 07/10/23 [place] has to be made further out, pt being transported by cot. Changed appt to 08/13/23 per [facility] only avail time for transport, first avail with DR Buck at 10:00 AM. [facility] Laboratory - CoagulationOrde red By: Carlos Cavazos on 06-25-2023 INR Coag (Bld) [Relative time] 3.8 {INR} [facility] PT Coag (PPP) [Time] 38.2 s 11.7-14.9 [facility] Laboratory - CoagulationOrde red By: Carlos Cavazos on 06-21-2023 INR Coag (Bld) [Relative time] 3.2 {INR} [facility] PT Coag (PPP) [Time] 32.9 s 11.7-14.9 [facility] No Panel InformationOrdered By: Carlos Cavazos on 06-13-2023 Valproic Acid (Depakene) Level < 3 ug/mL 50-100 [facility] Laboratory - CoagulationOrde red By: Carlos Cavazos on 06-06-2023 PT Coag (PPP) [Time] 30.5 s 11.7-14.9 [facility] Platelet poor plasma interna tional normalized ratio (INR)Ordered By: Carlos Cavazos on 06-06-2023 INR Coag (PPP) [Relative time] 2.9 {INR} [facility] International normalized rat io (INR) calculationOrdered By: Carlos Cavazos on 05-23-2023 INR Coag (PPP) [Relative time] 2.6 {INR} [facility] Laboratory - CoagulationOrde red By: Carlos Cavazos on 05-23-2023 PT Coag (PPP) [Time] 27.7 s 11.7-14.9 [facility] Laboratory - CoagulationOrde red By: Carlos Cavazos on 05-09-2023 PT Coag (PPP) [Time] 24.1 s 11.7-14.9 [facility] Whole blood international no rmalized ratio (INR)Ordered By: Carlos Cavazos on 05-09-2023 INR Coag (Bld) [Relative time] 2.1 {INR} [facility] Laboratory - CoagulationOrde red By: Carlos Cavazos on 04-23-2023 PT Coag (PPP) [Time] 26.4 s 11.7-14.9 [facility] Whole blood international no rmalized ratio (INR)Ordered By: Carlos Cavazos on 04-23-2023 INR Coag (Bld) [Relative time] 2.4 {INR} [facility] INR in Blood by Coagulation assayOrdered By: Carlos Cavazos on 04-09-2023 INR Coag (Bld) [Relative time] 2.1 {INR} [facility] Laboratory - CoagulationOrde red By: Carlos Cavazos on 04-09-2023 PT Coag (PPP) [Time] 23.9 s 11.7-14.9 [facility] INR in Blood by Coagulation assayOrdered By: Carlos Cavazos on 04-02-2023 INR Coag (Bld) [Relative time] 2.2 {INR} [facility] Laboratory - CoagulationOrde red By: Carlos Cavazos on 04-02-2023 PT Coag (PPP) [Time] 24.5 s 11.7-14.9 [facility] INR in Blood by Coagulation assayOrdered By: Carlos Cavazos on 03-26-2023 INR Coag (Bld) [Relative time] 1.7 {INR} [facility] Laboratory - CoagulationOrde red By: Carlos Cavazos on 03-26-2023 PT Coag (PPP) [Time] 19.9 s 11.7-14.9 [facility] INR in Blood by Coagulation assayOrdered By: Carlos Cavazos on 03-22-2023 INR Coag (Bld) [Relative time] 1.3 {INR} [facility] Laboratory - CoagulationOrde red By: Carlos Cavazos on 03-22-2023 PT Coag (PPP) [Time] 16.4 s 11.7-14.9 [facility] INR in Blood by Coagulation assayOrdered By: Carlos Cavazos on 03-08-2023 INR Coag (Bld) [Relative time] 2.0 {INR} [facility] Laboratory - CoagulationOrde red By: Carlos Cavazos on 03-08-2023 PT Coag (PPP) [Time] 22.5 s 11.7-14.9 [facility] Laboratory - CoagulationOrde red By: Carlos Cavazos on 02-22-2023 INR Coag (Bld) [Relative time] 2.2 {INR} [facility] Comment on above: Critical Value > 4.0 Whole blood prothrombin time Ordered By: Carlos Cavazos on 02-22-2023 PT Coag (Bld) [Time] 24.0 s 11.7-14.9 [facility] INR in Blood by Coagulation assayOrdered By: Cliff Bruner on 02-15-2023 INR Coag (Bld) [Relative time] 2.0 {INR} [facility] Laboratory - CoagulationOrde red By: Cliff Bruner on 02-15-2023 PT Coag (PPP) [Time] 22.8 s 11.7-14.9 [facility] INR in Blood by Coagulation assayOrdered By: Carlos Cavazos on 02-08-2023 INR Coag (Bld) [Relative time] 2.1 {INR} [facility] Laboratory - CoagulationOrde red By: Carlos Cavazos on 02-08-2023 PT Coag (PPP) [Time] 23.5 s 11.7-14.9 [facility] INR in Blood by Coagulation assayOrdered By: Carlos Cavazos on 01-31-2023 INR Coag (Bld) [Relative time] 2.0 {INR} [facility] Laboratory - CoagulationOrde red By: Carlos Cavazos on 01-31-2023 PT Coag (PPP) [Time] 22.4 s 11.7-14.9 [facility] Laboratory - CoagulationOrde red By: Carlos Cavazos on 01-29-2023 INR Coag (Bld) [Relative time] 1.8 {INR} [facility] Comment on above: Critical Value > 4.0 Whole blood prothrombin time Ordered By: Carlos Cavazos on 01-29-2023 PT Coag (Bld) [Time] 19.9 s 11.7-14.9 [facility] INR in Blood by Coagulation assayOrdered By: Carlos Cavazos on 01-26-2023 INR Coag (Bld) [Relative time] 1.5 {INR} [facility] Laboratory - CoagulationOrde red By: Carlos Cavazos on 01-26-2023 PT Coag (PPP) [Time] 18.3 s 11.7-14.9 [facility] INR in Blood by Coagulation assayOrdered By: Carlos Cavazos on 01-24-2023 INR Coag (Bld) [Relative time] 1.3 {INR} [facility] Laboratory - CoagulationOrde red By: Carlos Cavazos on 01-24-2023 PT Coag (PPP) [Time] 16.2 s 11.7-14.9 [facility] Basophil percentageOrdered B y: Carlos Cavazos on 01-22-2023 Basophil percentage 0 SEEN /hpf 0-5 [facility] Bilirubin Test strip Ql (U)O rdered [...] 01-22-2023 Mucus Ql (Urine sed) 1+ /hpf [facility] Nitrite Test strip Ql (U)Ord ered By: [...] 01-22-2023 Urobilinogen Ql (U) Normal mg/dl Normal [facility] INR in Blood by Coagulation assayOrdered By: Carlos Cavazos on 01-10-2023 INR Coag (Bld) [Relative time] 2.0 {INR} [facility] Laboratory - CoagulationOrde red By: Carlos Cavazos on 01-10-2023 PT Coag (PPP) [Time] 22.6 s 11.7-14.9 [facility] INR in Blood by Coagulation assayOrdered By: Carlos Cavazos on 12-27-2022 INR Coag (Bld) [Relative time] 2.1 {INR} [facility] Laboratory - CoagulationOrde red By: Carlos Cavazos on 12-27-2022 PT Coag (PPP) [Time] 24.1 s 11.7-14.9 [facility] INR in Blood by Coagulation assayOrdered By: Carlos Cavazos on 12-21-2022 INR Coag (Bld) [Relative time] 2.4 {INR} [facility] Laboratory - CoagulationOrde red By: Carlos Cavazos on 12-21-2022 PT Coag (PPP) [Time] 26.7 s 11.7-14.9 [facility] Laboratory - CoagulationOrde red By: Carlos Cavazos on 12-14-2022 INR Coag (Bld) [Relative time] 2.3 {INR} [facility] Comment on above: Critical Value > 4.0 Whole blood prothrombin time Ordered By: Carlos Cavazos on 12-14-2022 PT Coag (Bld) [Time] 25.2 s 11.7-14.9 [facility] Laboratory - CoagulationOrde red By: Carlos Cavazos on 12-07-2022 INR Coag (Bld) [Relative time] 2.5 {INR} [facility] Comment on above: Critical Value > 4.0 Whole blood prothrombin time Ordered By: Carlos Cavazos on 12-07-2022 PT Coag (Bld) [Time] 26.9 s 11.7-14.9 [facility] Amorphous sediment detection in urine sediment by light microscopyOrdered By: Carlos Cavazos on 11-24-2022 Amorphous sediment LM Ql (Urine sed) 1+ [facility] Basophil percentageOrdered B y: Carlos Cavazos on 11-24-2022 Basophil percentage 0 SEEN /hpf 0-5 [facility] Bilirubin [Mass/Vol] 0.30 mg/dL 0.20-1.00 [facility] Comment on above: For patients on eltr ombopag therapy, use of Dimension [place] TBIL is not recommended. Chloride [Moles/Vol] 107 mmol/L 98-107 [facility] Glucose [Mass/Vol] 95 mg/dL 74-106 [facility] Potassium [Moles/Vol] 4.2 mmol/L 3.5-5.1 [facility] Protein [Mass/Vol] 6.9 g/dL 6.4-8.2 [facility] Sodium [Moles/Vol] 138 mmol/L 136-145 [facility] WBC (Bld) [#/Vol] 10.4 10*3/uL 4.4-11.0 [facility] Bilirubin Test strip Ql (U)O rdered By: Carlos Cavazos on 11-24-2022 Bilirubin Ql (U) Negative Negative [facility] Blood erythrocytes count (nu mber/volume)Ordered By: Carlos Cavazos on 11-24-2022 RBC (Bld) [#/Vol] 4.44 10*6/uL 4.6-6.2 [facility] Blood hemoglobin measurement (mass/volume)Ordered By: [...] 11-24-2022 MCHC (RBC) [Mass/Vol] 31.4 g/dL 32-36 [facility] Mucus LM Ql (Urine sed)Order ed By: Carlos Cavazos on 11-24-2022 Mucus Ql (Urine sed) 0 SEEN /hpf [facility] Nitrite Test strip Ql (U)Ord ered By: [...] on 11-24-2022 Albumin [Mass/Vol] 2.9 g/dL 3.2-5.0 [facility] Serum or plasma albumin/glob ulin mass ratioOrdered By: Carlos Cavazos on 11-24-2022 Albumin/Globulin [Mass ratio] 0.7 {ratio} 0.9-2.4 [facility] Serum or plasma calcium oral urement (mass/volume)Ordered By: Carlos Cavazos on 11-24-2022 Calcium [Mass/Vol] 8.7 mg/dL 8.5-10.1 [facility] Serum or plasma creatinine m easurement (mass/volume)Ordered By: Carlos Cavazos on 11-24-2022 Creatinine [Mass/Vol] 0.83 mg/dL 0.70-1.30 [facility] Comment on above: The validity of the [...] 11-24-2022 Urobilinogen Ql (U) Normal mg/dl Normal [facility] Laboratory - CoagulationOrde red By: Carlos Cavazos on 11-23-2022 INR Coag (Bld) [Relative time] 2.2 {INR} [facility] Comment on above: Critical Value > 4.0 Whole blood prothrombin time Ordered By: Carlos Cavazos on 11-23-2022 PT Coag (Bld) [Time] 24.5 s 11.7-14.9 [facility] Basophil percentageOrdered B y: Carlos Cavazos on 11-22-2022 Chloride [Moles/Vol] 105 mmol/L 98-107 [facility] Glucose [Mass/Vol] 91 mg/dL 74-106 [facility] Potassium [Moles/Vol] 4.1 mmol/L 3.5-5.1 [facility] Sodium [Moles/Vol] 138 mmol/L 136-145 [facility] WBC (Bld) [#/Vol] 12.0 10*3/uL 4.4-11.0 [facility] Blood erythrocytes count (nu mber/volume)Ordered By: Carlos Cavazos on 11-22-2022 RBC (Bld) [#/Vol] 4.65 10*6/uL 4.6-6.2 [facility] Blood hemoglobin measurement (mass/volume)Ordered By: [...] 11-22-2022 MCHC (RBC) [Mass/Vol] 31.0 g/dL 32-36 [facility] No Panel InformationOrdered By: Carlos Cavazos on [...] on 11-22-2022 Calcium [Mass/Vol] 8.7 mg/dL 8.5-10.1 [facility] Serum or plasma creatinine m easurement (mass/volume)Ordered By: Carlos Cavazos on 11-22-2022 Creatinine [Mass/Vol] 0.85 mg/dL 0.70-1.30 [facility] Comment on above: The validity of the [...] PT Coag (Bld) [Time] 22.6 s 11.7-14.9 [facility] Laboratory - CoagulationOrde red By: Carlos Cavazos on 10-26-2022 INR Coag (Bld) [Relative time] 2.6 {INR} [facility] Comment on above: Critical Value > 4.0 Whole blood prothrombin time Ordered By: Carlos Cavazos on 10-26-2022 PT Coag (Bld) [Time] 28.5 s 11.7-14.9 [facility] Laboratory - CoagulationOrde red By: Carlos Cavazos on 10-12-2022 INR Coag (Bld) [Relative time] 2.4 {INR} [facility] Comment on above: Critical Value > 4.0 Whole blood prothrombin time Ordered By: Carlos Cavazos on 10-12-2022 PT Coag (Bld) [Time] 26.4 s 11.7-14.9 [facility] Laboratory - CoagulationOrde red By: Carlos Cavazos on 10-05-2022 INR Coag (Bld) [Relative time] 2.6 {INR} [facility] Comment on above: Critical Value > 4.0 Whole blood prothrombin time Ordered By: Carlos Cavazos on 10-05-2022 PT Coag (Bld) [Time] 28.0 s 11.7-14.9 [facility] Laboratory - CoagulationOrde red By: Carlos Cavazos on 09-28-2022 INR Coag (Bld) [Relative time] 2.7 {INR} [facility] Comment on above: Critical Value > 4.0 Whole blood prothrombin time Ordered By: Carlos Cavazos on 09-28-2022 PT Coag (Bld) [Time] 28.9 s 11.7-14.9 [facility] Laboratory - CoagulationOrde red By: Carlos Cavazos on 09-14-2022 INR Coag (Bld) [Relative time] 2.5 {INR} [facility] Comment on above: Critical Value > 4.0 Whole blood prothrombin time Ordered By: Carlos Cavazos on 09-14-2022 PT Coag (Bld) [Time] 27.4 s 11.7-14.9 [facility] Laboratory - CoagulationOrde red By: Carlos Cavazos on 08-31-2022 INR Coag (Bld) [Relative time] 2.3 {INR} [facility] Comment on above: Critical Value > 4.0 Whole blood prothrombin time Ordered By: Carlos Cavazos on 08-31-2022 PT Coag (Bld) [Time] 25.4 s 11.7-14.9 [facility] Basophil percentageOrdered B y: Carlos Cavazos on 08-23-2022 Chloride [Moles/Vol] 108 mmol/L 98-107 [facility] Glucose [Mass/Vol] 86 mg/dL 74-106 [facility] Potassium [Moles/Vol] 4.3 mmol/L 3.5-5.1 [facility] Sodium [Moles/Vol] 136 mmol/L 136-145 [facility] WBC (Bld) [#/Vol] 10.0 10*3/uL 4.4-11.0 [facility] Blood erythrocytes count (nu mber/volume)Ordered By: Carlos Cavazos on 08-23-2022 RBC (Bld) [#/Vol] 4.77 10*6/uL 4.6-6.2 [facility] Blood hemoglobin measurement (mass/volume)Ordered By: [...] [Entitic mass] 26.2 pg 27.0-32.0 [facility] MCHC Auto (RBC) [Mass/Vol]Or dered By: Carlos Cavazos on 08-23-2022 MCHC (RBC) [Mass/Vol] 31.1 g/dL 32-36 [facility] No Panel InformationOrdered By: Carlos Cavazos on [...] on 08-23-2022 Calcium [Mass/Vol] 9.1 mg/dL 8.5-10.1 [facility] Serum or plasma creatinine m easurement (mass/volume)Ordered By: Carlos Cavazos on 08-23-2022 Creatinine [Mass/Vol] 0.74 mg/dL 0.70-1.30 [facility] Comment on above: The validity of the [...] PT Coag (Bld) [Time] 29.6 s 11.7-14.9 [facility] Laboratory - CoagulationOrde red By: Carlos Cavazos on 08-14-2022 INR Coag (Bld) [Relative time] 3.9 {INR} [facility] Comment on above: Critical Value > 4.0 Whole blood prothrombin time Ordered By: Carlos Cavazos on 08-14-2022 PT Coag (Bld) [Time] 40.6 s 11.7-14.9 [facility] Laboratory - CoagulationOrde red By: Carlos Cavazos on 07-31-2022 INR Coag (Bld) [Relative time] 2.5 {INR} [facility] Comment on above: Critical Value > 4.0 Whole blood prothrombin time Ordered By: Carlos Cavazos on 07-31-2022 PT Coag (Bld) [Time] 26.8 s 11.7-14.9 [facility] INR in Blood by Coagulation assayOrdered By: Carlos Cavazos on 07-24-2022 INR Coag (Bld) [Relative time] 2.3 {INR} [facility] Laboratory - CoagulationOrde red By: Carlos Cavazos on 07-24-2022 PT Coag (PPP) [Time] 24.7 s 11.7-14.9 [facility] Laboratory - CoagulationOrde red By: Carlos Cavazos on 07-20-2022 INR Coag (Bld) [Relative time] 1.9 {INR} [facility] Comment on above: Critical Value > 4.0 Whole blood prothrombin time Ordered By: Carlos Cavazos on 07-20-2022 PT Coag (Bld) [Time] 20.6 s 11.7-14.9 [facility] Laboratory - CoagulationOrde red By: Carlos Cavazos on 07-17-2022 INR Coag (Bld) [Relative time] 1.3 {INR} [facility] Comment on above: Critical Value > 4.0 Whole blood prothrombin time Ordered By: Carlos Cavazos on 07-17-2022 PT Coag (Bld) [Time] 15.9 s 11.7-14.9 [facility] Basophil percentageOrdered B y: Carlos Cavazos on 07-11-2022 Chloride [Moles/Vol] 105 mmol/L 98-107 [facility] Glucose [Mass/Vol] 97 mg/dL 74-106 [facility] Potassium [Moles/Vol] 3.9 mmol/L 3.5-5.1 [facility] Sodium [Moles/Vol] 140 mmol/L 136-145 [facility] WBC (Bld) [#/Vol] 9.4 10*3/uL 4.4-11.0 [facility] Blood erythrocytes count (nu mber/volume)Ordered By: Carlos Cavazos on 07-11-2022 RBC (Bld) [#/Vol] 4.66 10*6/uL 4.6-6.2 [facility] Blood hemoglobin measurement (mass/volume)Ordered By: [...] 07-11-2022 MCHC (RBC) [Mass/Vol] 30.8 g/dL 32-36 [facility] No Panel InformationOrdered By: Carlso Cavazos on 07-11-2022 Estimated GFR (MDRD) Amer [...] on 07-11-2022 Calcium [Mass/Vol] 9.2 mg/dL 8.5-10.1 [facility] Serum or plasma creatinine m easurement (mass/volume)Ordered By: Carlos Cavazos on 07-11-2022 Creatinine [Mass/Vol] 0.78 mg/dL 0.70-1.30 [facility] Comment on above: The validity of the [...] PT Coag (Bld) [Time] 21.0 s 11.7-14.9 [facility] Laboratory - CoagulationOrde red By: Carlos Cavazos on 07-03-2022 INR Coag (Bld) [Relative time] 1.9 {INR} [facility] Comment on above: Critical Value > 4.0 Whole blood prothrombin time Ordered By: Carlos Cavazos on 07-03-2022 PT Coag (Bld) [Time] 22.7 s 11.7-14.9 [facility] INR in Blood by Coagulation assayOrdered By: Carlos Cavazos on 06-27-2022 INR Coag (Bld) [Relative time] 2.9 {INR} [facility] Laboratory - CoagulationOrde red By: Carlos Cavazos on 06-27-2022 PT Coag (PPP) [Time] 29.9 s 11.7-14.9 [facility] Laboratory - CoagulationOrde red By: Carlos Cavazos on 06-13-2022 INR Coag (Bld) [Relative time] 2.1 {INR} [facility] Comment on above: Critical Value > 4.0 Whole blood prothrombin time Ordered By: Carlos Cavazos on 06-13-2022 PT Coag (Bld) [Time] 24.4 s 11.7-14.9 [facility] Laboratory - CoagulationOrde red By: Carlos Cavazos on 06-06-2022 INR Coag (Bld) [Relative time] 1.5 {INR} [facility] Comment on above: Critical Value > 4.0 Whole blood prothrombin time Ordered By: Carlos Cavazos on 06-06-2022 PT Coag (Bld) [Time] 18.4 s 11.7-14.9 [facility] Basophil percentageOrdered B y: Carlos Cavazos on 05-30-2022 Chloride [Moles/Vol] 105 mmol/L 98-107 [facility] Glucose [Mass/Vol] 95 mg/dL 74-106 [facility] Potassium [Moles/Vol] 3.9 mmol/L 3.5-5.1 [facility] Sodium [Moles/Vol] 140 mmol/L 136-145 [facility] WBC (Bld) [#/Vol] 7.6 10*3/uL 4.4-11.0 [facility] Blood erythrocytes count (nu mber/volume)Ordered By: Carlos Cavazos on 05-30-2022 RBC (Bld) [#/Vol] 4.79 10*6/uL 4.6-6.2 [facility] Blood hemoglobin measurement (mass/volume)Ordered By: [...] PT Coag (PPP) [Time] 21.6 s 11.7-14.9 [facility] Laboratory - Hematology and Cell countsOrdered By: Carlos Cavazos on 05-30-2022 Erythrocyte distribution width (RBC) [Entitic vol] 48.8 fL 35.1-43.9 [facility] Erythrocyte distribution width (RBC) [Ratio] 16.2 % 11.6-14.6 [facility] MCH (RBC) [Entitic mass] 25.3 pg 27.0-32.0 [facility] ([facility]BC) [Mass/Vol]Or dered By: Carlos Cavazos on 05-30-2022 MCHC (RBC) [Mass/Vol] 30.6 g/dL 32-36 [facility] No Panel InformationOrdered By: Carlos Cavazos on [...] on 05-30-2022 Calcium [Mass/Vol] 9.1 mg/dL 8.5-10.1 [facility] Serum or plasma creatinine m easurement (mass/volume)Ordered By: Carlos Cavazos on 05-30-2022 Creatinine [Mass/Vol] 0.75 mg/dL 0.70-1.30 [facility] Comment on above: The validity of the [...] PT Coag (Bld) [Time] 23.2 s 11.7-14.9 [facility] Laboratory - CoagulationOrde red By: Carlos Cavazos on 04-27-2022 INR Coag (Bld) [Relative time] 2.7 {INR} [facility] Comment on above: Critical Value > 4.0 Whole blood prothrombin time Ordered By: Carlos Cavazos on 04-27-2022 PT Coag (Bld) [Time] 31.1 s 11.7-14.9 [facility] Laboratory - CoagulationOrde red By: Carlos Cavazos on 04-26-2022 INR Coag (Bld) [Relative time] 2.8 {INR} [facility] Comment on above: Critical Value > 4.0 Whole blood prothrombin time Ordered By: Carlos Cavazos on 04-26-2022 PT Coag (Bld) [Time] 32.6 s 11.7-14.9 [facility] Laboratory - CoagulationOrde red By: Carlos Cavazos on 04-11-2022 INR Coag (Bld) [Relative time] 2.9 {INR} [facility] Comment on above: Critical Value > 4.0 Whole blood prothrombin time Ordered By: Carlos Cavazos on 04-11-2022 PT Coag (Bld) [Time] 32.8 s 11.7-14.9 [facility] Laboratory - CoagulationOrde red By: Carlos Cavazos on 03-28-2022 INR Coag (Bld) [Relative time] 2.1 {INR} [facility] Comment on above: Critical Value > 4.0 Whole blood prothrombin time Ordered By: Carlos Cavazos on 03-28-2022 PT Coag (Bld) [Time] 24.8 s 11.7-14.9 [facility] Laboratory - CoagulationOrde red By: Carlos Cavazos on 03-23-2022 INR Coag (Bld) [Relative time] 1.7 {INR} [facility] Comment on above: Critical Value > 4.0 Whole blood prothrombin time Ordered By: Carlos Cavazos on 03-23-2022 PT Coag (Bld) [Time] 20.9 s 11.7-14.9 [facility] Laboratory - CoagulationOrde red By: Carlos Cavazos on 03-16-2022 INR Coag (Bld) [Relative time] 1.7 {INR} [facility] Comment on above: Critical Value > 4.0 Whole blood prothrombin time Ordered By: Carlos Cavazos on 03-16-2022 PT Coag (Bld) [Time] 19.9 s 11.7-14.9 [facility] Laboratory - CoagulationOrde red By: Carlos Cavazos on 03-09-2022 INR Coag (Bld) [Relative time] 1.8 {INR} [facility] Comment on above: Critical Value > 4.0 Whole blood prothrombin time Ordered By: Carlos Cavazos on 03-09-2022 PT Coag (Bld) [Time] 21.9 s 11.7-14.9 [facility] Laboratory - CoagulationOrde red By: Carlos Cavazos on 03-06-2022 INR Coag (Bld) [Relative time] 1.7 {INR} [facility] Comment on above: Critical Value > 4.0 Whole blood prothrombin time Ordered By: Carlos Cavazos on 03-06-2022 PT Coag (Bld) [Time] 20.0 s 11.7-14.9 [facility] CBC with Auto Differentialon 03-02-2022 Absolute Baso [...] - 10.7 10*3/uL [facility] Test Performed by [facility], [address] [place] [address] [facility] [address] HEAD WO CONTRASTon 2021 Patient Name: ANDREW SIFUENTES Computed Tomography ACCESSION EXAM DATE/TIME PROCEDURE ORDERING PROVIDER [id number] 03/02/2022 13:[address] Head or Brain w/o [id number] -LANETTE MUNGUIA Contrast CPT code 29378 Reason For Exam (CT Head or Brain [...] (parent active on the left for [employer] shunting and disconnected on the right). 2. No definite evidence of acute infarction (MRI more sensitive), mass lesion, nor hemorrhage. Report Dictated on --- Final --- Dictated: 03/02/2022 1:35 pm Dictating Physician: MD GUTIERREZ WILLIAM Signed Date and Time: 03/02/2022 1:39 pm Signed by: MD GUTIERREZ WILLIAM Transcribed Date and Time: 03/02/2022 1:[address] [facility] Anant Gutierrez MD - 03/02/2022 Patient Name: [id number] Computed Tomography ACCESSION EXAM DATE/TIME PROCEDURE ORDERING PROVIDER [id number] 03/02/2022 13:[address] Head or Brain w/o [id number] -EZRA LANETTE Contrast CPT code 80721 Reason For Exam (CT Head or Brain [...] (parent active on the left for [employer] shunting and disconnected on the right). 2. [...] Tomography ACCESSION EXAM DATE/TIME PROCEDURE ORDERING PROVIDER [id number] 03/02/2022 13:[address] Head or Brain w/o [id number] -LANETTE MUNGUIA Contrast CPT code 18350 Reason For Exam (CT Head or Brain [...] (parent active on the left for [employer] shunting and disconnected on the right). 2. [...] Performed By: #### H TIERA PT, CMP3 ####[id number] [place], [place] ALP [Catalytic activity/Vol] 128 U/L High 38-126 [facility] Comment on above: Performed By: #### H TIERA PT, CMP3 ####[id number] [place], [place] ALT [Catalytic activity/Vol] 12 U/L Normal 0-49 [facility] Comment on above: Result Comment: The ALT test is performed by an updated assay method. Please note that the reference intervals have been changed and are now sex specific. Performed By: #### H EMDF PT, CMP3 ####[id number] [place], [place] Anion gap [Moles/Vol] 7 mmol/L Normal 3-13 [facility] Comment on above: Performed By: #### H EMDF PT, CMP3 ####[id number] [place], [place] AST [Catalytic activity/Vol] 24 U/L Normal 15-46 [facility] Comment on above: Performed By: #### H CHRISTEL MOTT, CMP3 ####[id number] [place], [place] Bilirubin [Mass/Vol] 0.4 mg/dL Normal 0.2-1.3 [facility] Comment on above: Performed By: #### H CHRISTEL MOTT, CMP3 ####[id number] [place] [place], [place] CO2 [Moles/Vol] 27 mmol/L Normal 22-30 [facility] Comment on above: Performed By: #### H CHRISTEL MOTT CMP3 ####[id number] [place], [place] Glucose [Mass/Vol] 109 mg/dL High 70-100 [facility] Comment on above: Performed By: #### H CHRISTEL MOTT, CMP3 ####[id number] [place], [place] Protein [Mass/Vol] 8.1 g/dL Normal 6.3-8.2 [facility] Comment on above: Performed By: #### H CHRISTEL MOTT, CMP3 ####[address] [address] [place], [place] Urea nitrogen [Mass/Vol] 22 mg/dL High 7-17 [facility] Comment on above: Performed By: #### H CHRISTEL MOTT, CMP3 ####[id number] [place], [place] Creatinine [Mass/Vol] 0.63 mg/dL Normal 0.52-1.25 [facility] Comment on above: Performed By: #### H CHRISTEL MOTT, CMP3 ####[address] [place], [place] eGFR OTHER > 90.0 Normal >60 [...] Performed By: #### H CHRISTEL MOTT CMP3 ####[address] [place] [address] GFR/1.73 sq M.predicted among blacks MDRD (S/P/Bld) [Vol rate/Area] mL/min/{1.73_m2} Normal >60 [facility] Comment on above: Performed By: #### H CHRISTEL MOTT CMP3 ####[address] [address] Albumin [Mass/Vol] 4.1 g/dL Normal 3.5-5.0 [facility] Comment on above: Performed By: #### H CHRISTEL MOTT CMP3 ####[address] [address] Chloride [Moles/Vol] 106 mmol/L Normal 98-107 [facility] Comment on above: Performed By: #### H CHRISTEL MOTT CMP3 ####[address] [address] Potassium [Moles/Vol] 3.7 mmol/L Normal 3.5-5.1 [facility] Comment on above: Performed By: #### H CHRISTEL MOTT CMP3 ####[address] [place] [address] Sodium [Moles/Vol] 140 mmol/L Normal 135-145 [facility] Comment on above: Performed By: #### H EMDF, PT, CMP3 ####[facility] [place] [address] Comprehensive Metabolic Pane [facility] 03-02-2022 Albumin [Mass/Vol] 4.1 g/dL [...] P INF mL/min [facility] EGFR IF NonAfrican Serbian mL/min 60 - PINF mL/min [facility] Comment [...] - 17 mg/dL [facility] Test Performed by [facility], [address] [place] [id number] [facility] ED Provider Noteon 2 ED Provider [...] medical history of hydrocephalus status post [employer] shunt, history of DVT on Coumadin [facility] mechanical fall. 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 SURGICAL HISTORY Past Surgical [...] Performed By: #### H EMDF PT, CMP3 ####[facility] [place] [address] Abs Neutrophile Cnt 10.7 10*3/uL High 1.8-7.0 [facility] Comment on above: Performed By: #### H EMDF, PT, CMP3 ####[facility] [place] [address] Basophils/100 WBC (Bld) 1.1 % Normal 0.0-2.0 [facility] Comment on above: Performed By: #### H EMDF, PT, CMP3 ####[facility] [place] [place] [address] Eosinophils (Bld) [#/Vol] 0.1 10*3/uL Normal 0.0-0.5 [facility] Comment on above: Performed By: #### H EMDHeydi PT, CMP3 ####[address] [address] Eosinophils/100 WBC (Bld) 0.5 % Low 1.0-6.0 [facility] Comment on above: Performed By: #### H EMDF PT, CMP3 ####[address] [address] Granulocytes/100 WBC (Bld) 73.9 % Normal 40.0-80.0 [facility] Comment on above: Performed By: #### H TIERA PT, CMP3 ####[address] [address] Lymphocytes (Bld) [#/Vol] 3.0 10*3/uL Normal 1.0-4.3 [facility] Comment on above: Performed By: #### H TIERA PT, CMP3 ####[address] [address] Lymphocytes/100 WBC (Bld) 20.6 % Normal 20.0-40.0 [facility] Comment on above: Performed By: #### H EMDHeydi PT, CMP3 ####[address] [address] Monocytes (Bld) [#/Vol] 0.6 10*3/uL Normal 0.0-0.8 [facility] Comment on above: Performed By: #### H EMDF PT, CMP3 ####[address] [address] Monocytes/100 WBC (Bld) 3.9 % Normal 2.0-10.0 [facility] Comment on above: Performed By: #### H EMDF PT, CMP3 ####[address] [address] Platelet mean volume (Bld) [Entitic vol] 8.5 fL Normal 7.4-12.4 [facility] Comment on above: Result Comment: MPV is a calculated measurement using platelet volume ratio. Performed By: #### H EMDHeydi PT, CMP3 ####[address] Platelets (Bld) [#/Vol] 411 10*3/uL Normal 140-440 [facility] Comment on above: Performed By: #### H EMDHeydi PT, CMP3 ####[id number] [place], [place] Erythrocyte distribution width (RBC) [Ratio] 17.0 % High 11.5-14.5 [facility] Comment on above: Performed By: #### H TIERA PT, CMP3 ####[address] Hematocrit (Bld) [Volume fraction] 37.4 % Low 40.0-52.0 [facility] Comment on above: Performed By: #### H TIERA PT, CMP3 ####[address] Hemoglobin (Bld) [Mass/Vol] 12.1 g/dL Low 13.0-18.0 [facility] Comment on above: Performed By: #### H TIERA PT, CMP3 ####[address] [place], [place] MCH (RBC) [Entitic mass] 26.2 pg Normal 26.0-34.0 [facility] Comment on above: Performed By: #### H EMDHeydi PT, CMP3 ####[address] [place], [place] MCHC 32.3 % Normal 32.0-36.0 [facility] Comment on above: Performed By: #### H TIERA PT, CMP3 ####[address] MCV (RBC) [Entitic vol] 81.1 fL Normal 80.0-98.0 [facility] Comment on above: Performed By: #### H EMDHeydi PT, CMP3 ####[address] RBC (Bld) [#/Vol] 4.61 10*6/uL Normal 4.40-5.90 [facility] Comment on above: Performed By: #### H BIMLAF PT, CMP3 ####[address] [place], [place] WBC (Bld) [#/Vol] 14.5 10*3/uL High 3.6-10.7 [facility] Comment on above: Performed By: #### H BIMALF PT, CMP3 ####[id number] [place], [place] Prothrombin Timeon INR 1.9 High 0.9-1.1 [facility] [...] Performed By: #### H TIERA PT, CMP3 ####[address] PT Coag (PPP) [Time] 18.9 s High 9.0-12.0 [facility] Comment on above: Result Comment: . Performed By: #### H TIERA PT, CMP3 ####[id number] [place], [place] [facility]time-[facility]Ron 03-02-2022 INR Coag (Bld) [Relative time] 1.9 {INR} High [facility] Comment on above: Recommended Anticoag ulant [...] Interpretation and review of laboratory results Abnormal [facility] PT Coag (PPP) [Time] 18.9 s High 9.0 - 12.0 s [facility] Comment on above: . Test Performed by [facility], [address] [place] [id number] [place] [address] LAB [facility] Laboratory - CoagulationOrde red By: Carlos Cavazos on 02-20-2022 INR Coag (Bld) [Relative time] 2.6 {INR} [facility] Comment on above: Critical Value > 4.0 Whole blood prothrombin time Ordered By: Carlos Cavazos on 02-20-2022 PT Coag (Bld) [Time] 30.1 s 11.7-14.9 [facility] Laboratory - CoagulationOrde red By: Carlos Cavazos on 02-13-2022 INR Coag (Bld) [Relative time] 2.3 {INR} [facility] Comment on above: Critical Value > 4.0 Whole blood prothrombin time Ordered By: Carlos Cavazos on 02-13-2022 PT Coag (Bld) [Time] 26.7 s 11.7-14.9 [facility] Laboratory - CoagulationOrde red By: Carlos Cavazos on 02-06-2022 INR Coag (Bld) [Relative time] 2.3 {INR} [facility] Comment on above: Critical Value > 4.0 Whole blood prothrombin time Ordered By: Carlos Cavazos on 02-06-2022 PT Coag (Bld) [Time] 26.6 s 11.7-14.9 [facility] Laboratory - Coagulationon 0 01-30-2022 INR Coag (Bld) [Relative time] 1.7 {INR} [facility] Work Phone: Comment on above: Critical Value > 4.0 Whole blood prothrombin time on 01-30-2022 PT Coag (Bld) [Time] 20.1 s 11.7-14.9 [facility] Work Phone: Laboratory - Coagulationon 0 01-26-2022 INR Coag (Bld) [Relative time] 1.8 {INR} [facility] Work Phone: Comment on above: Critical Value > 4.0 Whole blood prothrombin time on 01-26-2022 PT Coag (Bld) [Time] 21.8 s 11.7-14.9 [facility] Work Phone: Laboratory - Coagulationon 0 01-19-2022 INR Coag (Bld) [Relative time] 2.2 {INR} [facility] Work Phone: Comment on above: Critical Value > 4.0 Whole blood prothrombin time on 01-19-2022 PT Coag (Bld) [Time] 25.7 s 11.7-14.9 [facility] Work Phone: INR in Blood by Coagulation assayon 01-10-2022 INR Coag (Bld) [Relative time] 1.8 {INR} [facility] Work Phone: Laboratory - Coagulationon 0 01-10-2022 PT Coag (PPP) [Time] 20.9 s 11.7-14.9 [facility] Work Phone: Basophil percentageon 2021 Chloride [Moles/Vol] 107 mmol/L 98-107 [facility] Work Phone: Glucose [Mass/Vol] 82 mg/dL 74-106 [facility] Work Phone: Potassium [Moles/Vol] 3.4 mmol/L 3.5-5.1 [facility] Work Phone: Sodium [Moles/Vol] 143 mmol/L 136-145 [facility] Work Phone: WBC (Bld) [#/Vol] 10.4 10*3/uL 4.4-11.0 [facility] Work Phone: Blood erythrocytes count (nu mber/volume)on 01-05-2022 RBC (Bld) [#/Vol] 4.27 10*6/uL 4.6-6.2 [facility] Work Phone: Blood hemoglobin measurement [...] 01-05-2022 MCHC (RBC) [Mass/Vol] 30.9 g/dL 32-36 [facility] Work Phone: No Panel Informationon 01-05 Estimated [...] (mass/volume)on 01-05-2022 Calcium [Mass/Vol] 8.8 mg/dL 8.5-10.1 [facility] Work Phone: Serum or plasma creatinine m easurement (mass/volume)on 01-05-2022 Creatinine [Mass/Vol] 0.75 mg/dL 0.70-1.30 [facility] Work Phone: Comment on above: The validity [...] PT Coag (Bld) [Time] 23.7 s 11.7-14.9 [facility] Work Phone: Basophil percentageon 2021 Chloride [Moles/Vol] 106 mmol/L 98-107 [facility] [facility] Work Phone: Glucose [Mass/Vol] 91 mg/dL 74-106 [facility] Work Phone: Potassium [Moles/Vol] 3.4 mmol/L 3.5-5.1 [facility] Work Phone: [phone] Sodium [Moles/Vol] 141 mmol/L 136-145 [facility] Work Phone: WBC (Bld) [#/Vol] 10.2 10*3/uL 4.4-11.0 [facility] Work Phone: Blood erythrocytes count (nu mber/volume)on 12-28-2021 RBC (Bld) [#/Vol] 4.22 10*6/uL 4.6-6.2 [facility] Work Phone: Blood hemoglobin measurement [...] 12-28-2021 MCHC (RBC) [Mass/Vol] 32.1 g/dL 32-36 [facility] Work Phone: No Panel Informationon 12-28 Estimated [...] (mass/volume)on 12-28-2021 Calcium [Mass/Vol] 8.6 mg/dL 8.5-10.1 [facility] Work Phone: Serum or plasma creatinine m easurement (mass/volume)on 12-28-2021 Creatinine [Mass/Vol] 0.59 mg/dL 0.70-1.30 [facility] Work Phone: Comment on above: The validity [...] above: Performed By: #### C /BLD #### [facility] [address] [place] [address] Laboratory - Coagulationon 0 12-26-2021 INR Coag (Bld) [Relative time] 1.7 {INR} [facility] Work Phone: Comment on above: Critical Value > 4.0 Whole blood prothrombin time on 12-26-2021 PT Coag (Bld) [Time] 20.8 s 11.7-14.9 [facility] Work Phone: Basic Metabolic Panelon 12-05 Calcium [Mass/Vol] 8.8 mg/dL Normal 8.4-10.4 [facility] Comment on above: Performed By: #### C RP2, ESR, HEMDF, BMP3 ####[facility] [id number] [employer] [place] Anion gap [Moles/Vol] 6 mmol/L Normal 3-13 [facility] Comment on above: Performed By: #### C RP2, ESR, HEMDF, BMP3 ####[id number] [employer] [place] CO2 [Moles/Vol] 27 mmol/L Normal 22-30 [facility] Comment on above: Performed By: #### C RP2, ESR, HEMDF, BMP3 ####[facility] [id number] [place] Glucose [Mass/Vol] 100 mg/dL Normal 70-100 [facility] Comment on above: Performed By: #### C RP2, ESR, HEMDF, BMP3 ####[employer] [place], [place] Urea nitrogen [Mass/Vol] 18 mg/dL High 7-17 [facility] Comment on above: Performed By: #### C RP2, ESR, HEMDF, BMP3 ####[employer] [place] [address] Creatinine [Mass/Vol] 0.73 mg/dL Normal 0.52-1.25 [facility] Comment on above: Performed By: #### C RP2, ESR, HEMDF, BMP3 ####[facility] [employer] [id number] [place], [place] eGFR OTHER > 90.0 Normal >60 [...] By: #### C RP2, ESR, HEMDF, BMP3 ####[facility] [employer] [place], [place] GFR/1.73 sq M.predicted among blacks MDRD (S/P/Bld) [Vol rate/Area] mL/min/{1.73_m2} Normal >60 [facility] Comment on above: Performed By: #### C RP2, ESR, HEMDF, BMP3 ####[facility] [employer] [place], [place] Potassium [Moles/Vol] 3.7 mmol/L Normal 3.5-5.1 [facility] Comment on above: Performed By: #### C RP2, ESR, HEMDF, BMP3 ####[facility] [employer] [id number] [place], [place] Chloride [Moles/Vol] 106 mmol/L Normal 98-107 [facility] Comment on above: Performed By: #### C RP2, ESR, HEMDF, BMP3 ####[facility] [place] [address] Sodium [Moles/Vol] 139 mmol/L Normal 135-145 [facility] Comment on above: Performed By: #### C RP2, ESR, HEMDF, BMP3 ####[facility] [place] [address] Anion gap [Moles/Vol] 6 mmol/L 3 - 13 mmol/L [facility] Calcium [Mass/Vol] 8.8 mg/dL 8.4 - 10. 4 mg/dL [facility] Chloride [Moles/Vol] 106 mmol/L 98 - 10 7 mmol/L [facility] CO2 [Moles/Vol] 27 mmol/L 22 - 30 mmol/L [facility] Creatinine [Mass/Vol] 0.73 mg/dL 0.52 - 1.25 mg/dL [facility] eGFR mL/min 60 - P INF mL/min [facility] EGFR IF NonAfrican Serbian mL/min 60 - PINF mL/min [facility] Comment on above: KDIGO guidelines pro [...] Chloride [Moles/Vol] 106 mmol/L 98-[address] [facility] [address] [facility] Work Phone: Glucose [Mass/Vol] 93 mg/dL 74-106 [facility] Work Phone: [phone] Potassium [Moles/Vol] 3.5 mmol/L 3.5-5.1 [facility] Work Phone: Sodium [Moles/Vol] 140 mmol/L 136-145 [facility] Work Phone: WBC (Bld) [#/Vol] 9.6 10*3/uL 4.4-11.0 [facility] Work Phone: Bilirubin Test strip Ql (U)o n 12-22-2021 Bilirubin Ql (U) Negative Negative [facility] Work Phone: Blood erythrocytes count (nu mber/volume)on 12-22-2021 RBC (Bld) [#/Vol] 4.34 10*6/uL 4.6-6.2 [facility] Work Phone: Blood hemoglobin measurement (mass/volume)on 12-22-2021 Hemoglobin (Bld) [Mass/Vol] 11.5 g/dL 13.0-16.5 [facility] Work Phone: Blood platelet mean volumeon 12-22-2021 Platelet mean volume (Bld) [Entitic vol] 10.8 fL 6.2-12.0 [facility] Work Phone: C-Reactive Proteinon 022 CRP [Mass/Vol] 27.2 mg/L High 0.0-9.9 [facility] Comment on above: Result Comment: . Performed By: #### C RP2, ESR, HEMDF, BMP3 ####[employer] [id number] [place] [address] CRP [Mass/Vol] 27.2 mg/L High 0 - 9.9 mg/L [facility] Comment on above: . CBC with Auto [...] - 10.7 10*3/uL [facility] Test Performed by [facility], [address] [place] [id number] [facility] COVID-19, Flu A/B, and RSV C omboon 12-22-2021 Influenza A by PCR Not detected [facility] A Influenza B by PCR Not detected [facility] A RSV PCR Not Detected. Expected Result: Not Detected _ Method: Real-time, RT-PCR This assay was developed by [employer] and distributed under an Emergency Use Authorization (EUA) granted by the FDA for the qualitative detection of nucleic acids from SARS-CoV-2, Influenza A, Influenza B, and Respiratory Syncytial Virus. Provider and patient fact sheets can be found at https://www.fda.gov/media /088546/download and https://www.fda.gov/media /711179/download. [facility] SARS-CoV-2 (COVID-19) RNA MEGAN+probe Ql (Unsp spec) Not detected [facility] Test Performed by [address] [address] [facility] CR Foot Complete 3+ Views Le fton 12-22-2021 CR Foot Complete 3+ Views Left Patient Name: ANDREW SIFUENTES Diagnostic Radiology ACCESSION EXAM DATE/TIME PROCEDURE ORDERING PROVIDER [id number] 12/22/2021 00:09 EDT CR Foot Complete 3+ SANDY HIDALGO, TRAVIS Views Left CPT code 00993 Reason For Exam (CR Foot Complete 3+ [...] [facility] Work Phone: ED Provider Noteon 2 [...] 79.4 kg (175 lb), SpO2 96 %. [id number] in no acute distress. Alert and oriented [...] [employer] Sharon Olivia MD 12/22/21 0305 [facility] ED Provider Note [facility] EM[facility] EMERGENCY DEPARTMENT ENCOUNTER Pt Name: Andrew Sifuentes Birthdate 1950 Date of evaluation: 12/21/2021 Provider: SANIA Lou CHIEF COMPLAINT Chief Complaint Patient presents with Osteomyelitis Patient from [facility], facility did xrays on left lower leg and and have concerns for possible osteomyelitis A&Ox2 to self and place, stated year 2022 [facility] Miss martini HISTORY OF PRESENT ILLNESS (Location/Symptom, Timing/Onset, Context/Setting, Quality,Duration, Modifying Factors, Severity) Note limiting factors. HPI I have seen this patient With supervising physician Does this patient come from an ECF, SNF, Rehab, Intermediate or other Congregate setting: no (If yes [...] Hydrocephalus, adult (HCC) Kidney stone Neuropathy [employer] (ventriculoperitoneal) shunt status SURGICAL HISTORY Past Surgical [...] Response: Confused Best Motor Response: Obeys commands Kane Coma Scale Score: 14 Patient symptoms are [...] soft. Tenderness: (more content not included)... Normal [facility] [employer] Hematocrit Auto (Bld) [Volum e fraction]on 12-22-2021 Hematocrit (Bld) [Volume fraction] 36.6 % 40-54 [facility] Work Phone: Hemogram w/ Autodiffon 12-22 Abs Baso Cnt 0.1 10*3/uL Normal 0.0-0.2 [facility] [employer] Comment on above: Performed By: #### C RP2, ESR, HEMDF, BMP3 ####[employer] [id number] [place] [address] Abs Neutrophile Cnt 5.9 10*3/uL Normal 1.8-7.0 [facility] Comment on above: Performed By: #### C RP2, ESR, HEMDF, BMP3 ####[address] [address] Basophils/100 WBC (Bld) 0.7 % Normal 0.0-2.0 [facility] Comment on above: Performed By: #### C RP2, ESR, HEMDF, BMP3 ####[address] [address] Eosinophils (Bld) [#/Vol] 0.2 10*3/uL Normal 0.0-0.5 [facility] Comment on above: Performed By: #### C RP2, ESR, HEMDF, BMP3 ####[address] [address] Eosinophils/100 WBC (Bld) 2.3 % Normal 1.0-6.0 [facility] Comment on above: Performed By: #### C RP2, ESR, HEMDF, BMP3 ####[address] Erythrocyte distribution width (RBC) [Ratio] 17.5 % High 11.5-14.5 [facility] Comment on above: Performed By: #### C RP2, ESR, HEMDF, BMP3 ####[address] [address] Granulocytes/100 WBC (Bld) 57.8 % Normal 40.0-80.0 [facility] Comment on above: Performed By: #### C RP2, ESR, HEMDF, BMP3 ####[address] [address] Hematocrit (Bld) [Volume fraction] 33.3 % Low 40.0-52.0 [facility] Comment on above: Performed By: #### C RP2, ESR, HEMDF, BMP3 ####[address] [address] Hemoglobin (Bld) [Mass/Vol] 11.0 g/dL Low 13.0-18.0 [facility] Comment on above: Performed By: #### C RP2, ESR, HEMDF, BMP3 ####[address] Lymphocytes (Bld) [#/Vol] 3.3 10*3/uL Normal 1.0-4.3 [facility] Comment on above: Performed By: #### C RP2, ESR, HEMDF, BMP3 ####[address] Lymphocytes/100 WBC (Bld) 33.0 % Normal 20.0-40.0 [facility] Comment on above: Performed By: #### C RP2, ESR, HEMDF, BMP3 ####[address] MCH (RBC) [Entitic mass] 26.5 pg Normal 26.0-34.0 [facility] Comment on above: Performed By: #### C RP2, ESR, HEMDF, BMP3 ####[address] MCHC 33.1 % Normal 32.0-36.0 [facility] Comment on above: Performed By: #### C RP2, ESR, HEMDF, BMP3 ####[address] MCV (RBC) [Entitic vol] 80.2 fL Normal 80.0-98.0 [facility] Comment on above: Performed By: #### C RP2, ESR, HEMDF, BMP3 ####[address] Monocytes (Bld) [#/Vol] 0.6 10*3/uL Normal 0.0-0.8 [facility] Comment on above: Performed By: #### C RP2, ESR, HEMDF, BMP3 ####[address] Monocytes/100 WBC (Bld) 6.2 % Normal 2.0-10.0 [facility] Comment on above: Performed By: #### C RP2, ESR, HEMDF, BMP3 ####[facility] [employer] [place], [place] Platelet mean volume (Bld) [Entitic vol] 8.0 fL Normal 7.4-12.4 [facility] Comment on above: Result Comment: MPV is a calculated measurement using platelet volume ratio. Performed By: #### C RP2, ESR, HEMDF, BMP3 ####[facility] [employer] [id number] [place], [place] Platelets (Bld) [#/Vol] 368 10*3/uL Normal 140-440 [facility] Comment on above: Performed By: #### C RP2, ESR, HEMDF, BMP3 ####[facility] [employer] [id number] [place], [place] RBC (Bld) [#/Vol] 4.15 10*6/uL Low 4.40-5.90 [facility] Comment on above: Performed By: #### C RP2, ESR, HEMDF, BMP3 ####[facility] [employer] [address] [place], [place] WBC (Bld) [#/Vol] 10.1 10*3/uL Normal 3.6-10.7 [facility] Comment on above: Performed By: #### C RP2, ESR, HEMDF, BMP3 ####[facility] [employer] [id number] [place], [place] Ketones Test strip Ql (U)on 12-22-2021 [...] 12-22-2021 MCHC (RBC) [Mass/Vol] 31.4 g/dL 32-36 [facility] Work Phone: Mucus LM Ql (Urine sed)on Mucus Ql (Urine sed) 0 SEEN /hpf [facility] Work Phone: Nitrite Test strip Ql (U)on [...] laboratory results Abnormal [facility] Test Performed by [facility], [address] [place] [id number] [place] [address] LAB [facility] Platelets bldon 12-22-2021 Platelets (Bld) [...] Real-time, RT-PCR This assay was developed by [employer] and distributed under an Emergency Use Authorization (EUA) granted by the FDA for the qualitative detection of nucleic acids from SARS-CoV-2, Influenza A, Influenza B, and Respiratory Syncytial Virus. Provider and patient fact sheets can be found at https://www.fda.gov/media /086818/download and https://www.fda.gov/media /953958/download. Expected Result: Not Detected _ Method: Real-time, RT-PCR This assay was developed by [employer] and distributed under an Emergency Use Authorization (EUA) granted by the FDA for the qualitative detection of nucleic acids from SARS-CoV-2, Influenza A, Influenza B, and Respiratory Syncytial Virus. Provider and patient fact sheets can be found at https://www.fda.gov/media /945526/download and https://www.fda.gov/media /914227/download. Normal [facility] Comment on above: Performed By: #### C VFLR ####[facility] [place] [address], [address] Sed Rateon 12-22-2021 Sed Rate 48 mm/h High 0-10 [facility] Comment on above: Performed By: #### C RP2, ESR, HEMDF, BMP3 ####[place] [id number] [place] [address] Sedimentation Rateon 022 Interpretation and review of laboratory results Abnormal [facility] Sed Rate 48 mm/h High 0 - 10 mm/h [facility] Test Performed by [facility], [address] [place] [address] [facility] Serum or plasma calcium oral urement (mass/volume)on 12-22-2021 Calcium [Mass/Vol] 8.6 mg/dL 8.5-10.1 [facility] Work Phone: Serum or plasma creatinine m easurement (mass/volume)on 12-22-2021 Creatinine [Mass/Vol] 0.67 mg/dL 0.70-1.30 [facility] Work Phone: Comment on above: The validity [...] 12-22-2021 Urobilinogen Ql (U) Normal mg/dl Normal [facility] Work Phone: XR FOOT LEFT (MIN 3 VIEWS)on 12-22-2021 Patient Name: ANDREW SIFUENTES Diagnostic Radiology ACCESSION EXAM DATE/TIME PROCEDURE ORDERING PROVIDER [id number] 12/22/2021 00:09 EDT CR Foot Complete 3+ SANDY HIDALGO, TRAVIS Views Left CPT code 20676 Reason For Exam (CR Foot Complete 3+ [...] Transcribed Date and Time: 12/22/2021 0:[address] [facility] Albert Solano MD - 12/22/2021 Patient Name: ANDREW SIFUENTES Diagnostic Radiology ACCESSION EXAM DATE/TIME PROCEDURE ORDERING PROVIDER [id number] 12/22/2021 00:09 EDT CR Foot Complete 3+ SANDY HIDALGO, TRAVIS Views Left CPT code 38730 Reason For Exam (CR Foot Complete 3+ [...] Transcribed Date and Time: 12/22/2021 0:21 [facility] Work Phone: Radiology Study observation (narrative) [facility] Work Phone: XR FOOT LEFT (MIN 3 VIEWS)Or dered By: Albert Solano on 12-22-2021 [facility] Work Phone: Basophil percentageon 2021 Chloride [Moles/Vol] 103 mmol/L 98-[address] [facility] Work Phone: Glucose [Mass/Vol] 92 mg/dL 74-106 [facility] Work Phone: Potassium [Moles/Vol] 3.5 mmol/L 3.5-5.1 [facility] Work Phone: Sodium [Moles/Vol] 138 mmol/L 136-145 [facility] Work Phone: WBC (Bld) [#/Vol] 11.2 10*3/uL 4.4-11.0 [facility] Work Phone: Blood erythrocytes count (nu mber/volume)on 12-19-2021 RBC (Bld) [#/Vol] 4.50 10*6/uL 4.6-6.2 [facility] Work Phone: Blood hemoglobin measurement [...] 12-19-2021 MCHC (RBC) [Mass/Vol] 31.7 g/dL 32-36 [facility] Work Phone: No Panel Informationon 12-19 Estimated [...] (mass/volume)on 12-19-2021 Calcium [Mass/Vol] 9.5 mg/dL 8.5-10.1 [facility] Work Phone: Serum or plasma creatinine m easurement (mass/volume)on 12-19-2021 Creatinine [Mass/Vol] 0.66 mg/dL 0.70-1.30 [facility] Work Phone: Comment on above: The validity [...] PT Coag (Bld) [Time] 23.9 s 11.7-14.9 [facility] Work Phone: ANES POSTPROC EVALon 022 ANES POSTPROC EVAL Normal [facility] Laboratory - Coagulationon 0 12-08-2021 INR Coag (Bld) [Relative time] 1.8 {INR} [facility] Work Phone: Comment on above: Critical Value > 4.0 Whole blood prothrombin time on 12-08-2021 PT Coag (Bld) [Time] 21.0 s 11.7-14.9 [facility] Work Phone: Absolute lymphocyte counton 12-05-2021 Lymphocytes Auto (Unsp spec) [#/Vol] 2.97 10*3/uL 0.83-4.51 [facility] Work Phone: Basophil percentageon 2021 Basophils/100 WBC (Bld) 0.6 % 0-1 [facility] Work Phone: Chloride [Moles/Vol] 106 mmol/L 98-107 [facility] Work Phone: Eosinophils/100 WBC (Bld) 2.3 % 0-5 [facility] Work Phone: Glucose [Mass/Vol] 107 mg/dL 74-106 [facility] Work Phone: Comment on above: Fasting Glucose resu lt from 100 to 125 mg/dL suggests IMPAIRED HOMEOSTASIS per A.D.A. criteria. Neutrophils (Bld) [#/Vol] 5.6 10*3/uL 2.0-7.7 [facility] Work Phone: [phone] Neutrophils/100 WBC (Bld) 60.2 % 47-70 [facility] Work Phone: Potassium [Moles/Vol] 3.4 mmol/L 3.5-5.1 [facility] Work Phone: Sodium [Moles/Vol] 139 mmol/L 136-145 [facility] Work Phone: [phone] WBC (Bld) [#/Vol] 9.3 10*3/uL 4.4-11.0 [facility] Work Phone: Blood erythrocytes count (nu mber/volume)on 12-05-2021 RBC (Bld) [#/Vol] 4.49 10*6/uL 4.6-6.2 [facility] Work Phone: Blood hemoglobin measurement [...] PT Coag (PPP) [Time] 20.5 s 11.7-14.9 [facility] Work Phone: Laboratory - Hematology and Cell [...] 12-05-2021 MCHC (RBC) [Mass/Vol] 31.8 g/dL 32-36 [facility] Work Phone: No Panel Informationon 12-05 Estimated [...] (mass/volume)on 12-05-2021 Calcium [Mass/Vol] 9.4 mg/dL 8.5-10.1 [facility] Work Phone: Serum or plasma creatinine m easurement (mass/volume)on 12-05-2021 Creatinine [Mass/Vol] 0.75 mg/dL 0.70-1.30 [facility] Work Phone: Comment on above: The validity [...] 2021 Basophil percentage 0 SEEN /hpf 0-5 [facility] Work Phone: Chloride [Moles/Vol] 104 mmol/L 98-107 [facility] Work Phone: Glucose [Mass/Vol] 90 mg/dL 74-106 [facility] Work Phone: Potassium [Moles/Vol] 3.7 mmol/L 3.5-5.1 [facility] Work Phone: Comment on above: Slight Hemolysis, Re sult may be falsely increased. Sodium [Moles/Vol] 138 mmol/L 136-145 [facility] Work Phone: WBC (Bld) [#/Vol] 10.7 10*3/uL 4.4-11.0 [facility] Work Phone: Bilirubin Test strip Ql (U)o n 12-01-2021 Bilirubin Ql (U) Negative Negative [facility] Work Phone: Blood erythrocytes count (nu mber/volume)on 12-01-2021 RBC (Bld) [#/Vol] 4.33 10*6/uL 4.6-6.2 [facility] Work Phone: Blood hemoglobin measurement [...] 12-01-2021 MCHC (RBC) [Mass/Vol] 31.4 g/dL 32-36 [facility] Work Phone: Mucus LM Ql (Urine sed)on Mucus Ql (Urine sed) 0 SEEN /hpf [facility] Work Phone: Nitrite Test strip Ql (U)on [...] (mass/volume)on 12-01-2021 Calcium [Mass/Vol] 9.4 mg/dL 8.5-10.1 [facility] Work Phone: Serum or plasma creatinine m easurement (mass/volume)on 12-01-2021 Creatinine [Mass/Vol] 0.75 mg/dL 0.70-1.30 [facility] Work Phone: Comment on above: The validity [...] 12-01-2021 Urobilinogen Ql (U) Normal mg/dl Normal [facility] Work Phone: Whole blood prothrombin time on 12-01-2021 PT Coag (Bld) [Time] 19.8 s 11.7-14.9 [facility] Work Phone: Laboratory - Coagulationon 0 11-28-2021 INR Coag (Bld) [Relative time] 1.6 {INR} [facility] Work Phone: Comment on above: Critical Value > 4.0 Whole blood prothrombin time on 11-28-2021 PT Coag (Bld) [Time] 18.8 s 11.7-14.9 [facility] Work Phone: INR in Blood by Coagulation assayon 11-23-2021 INR Coag (Bld) [Relative time] 2.7 {INR} [facility] Work Phone: Laboratory - Coagulationon 0 11-23-2021 PT Coag (PPP) [Time] 28.0 s 11.7-14.9 [facility] Work Phone: Laboratory - Coagulationon 0 11-22-2021 INR Coag (Bld) [Relative time] 3.8 {INR} [facility] Work Phone: Comment on above: Critical Value > 4.0 Whole blood prothrombin time on 11-22-2021 PT Coag (Bld) [Time] 42.8 s 11.7-14.9 [facility] Work Phone: INR in Blood by Coagulation assayon 11-21-2021 INR Coag (Bld) [Relative time] 3.9 {INR} [facility] Work Phone: Laboratory - Coagulationon 0 11-21-2021 PT Coag (PPP) [Time] 37.7 s 11.7-14.9 [facility] Work Phone: Whole blood prothrombin time on 11-21-2021 PT Coag (Bld) [Time] 45.5 s 11.7-14.9 [facility] Work Phone: INR in Blood by Coagulation assayon 11-14-2021 INR Coag (Bld) [Relative time] 3.1 {INR} [facility] Work Phone: Laboratory - Coagulationon 0 11-14-2021 PT Coag (PPP) [Time] 31.4 s 11.7-14.9 [facility] Work Phone: Laboratory - Coagulationon 0 11-08-2021 INR Coag (Bld) [Relative time] 2.5 {INR} [facility] Work Phone: Comment on above: Critical Value > 4.0 Whole blood prothrombin time on 11-08-2021 PT Coag (Bld) [Time] 29.0 s 11.7-14.9 [facility] Work Phone: Basophil percentageon 2021 Chloride [Moles/Vol] 106 mmol/L 98-107 [facility] Work Phone: Glucose [Mass/Vol] 100 mg/dL 74-106 [facility] Work Phone: Comment on above: Fasting Glucose resu lt from 100 to 125 mg/dL suggests IMPAIRED HOMEOSTASIS per A.D.A. criteria. Potassium [Moles/Vol] 3.7 mmol/L 3.5-5.1 [facility] Work Phone: Sodium [Moles/Vol] 140 mmol/L 136-145 [facility] Work Phone: WBC (Bld) [#/Vol] 8.8 10*3/uL 4.4-11.0 [facility] Work Phone: Blood erythrocytes count (nu mber/volume)on 11-04-2021 RBC (Bld) [#/Vol] 4.05 10*6/uL 4.6-6.2 [facility] Work Phone: Blood hemoglobin measurement [...] PT Coag (PPP) [Time] 20.4 s 11.7-14.9 [facility] Work Phone: Laboratory - Hematology and Cell countson 11-04-2021 Erythrocyte distribution width (RBC) [Entitic vol] 48.1 fL 35.1-43.9 [facility] Work Phone: Erythrocyte distribution width (RBC) [Ratio] 15.0 % 11.6-14.6 [facility] Work Phone: MCH (RBC) [Entitic mass] 27.4 pg 27.0-32.0 [facility] Work Phone: MCHC Auto (RBC) [Mass/Vol]on 11-04-2021 MCHC (RBC) [Mass/Vol] 31.5 g/dL 32-36 [facility] Work Phone: No Panel Informationon 11-04 D-Dimer [...] For more information see Policy Stat Procedure [place] High Sensitivity Troponin (TNIH) and attachments. Platelets [...] (mass/volume)on 11-04-2021 Calcium [Mass/Vol] 9.1 mg/dL 8.5-10.1 [facility] Work Phone: Serum or plasma creatinine m easurement (mass/volume)on 11-04-2021 Creatinine [Mass/Vol] 0.66 mg/dL 0.70-1.30 [facility] Work Phone: Comment on above: The validity [...] Urinalysison 2021 Appearance (U) Clear Normal Clear [facility] [employer] Comment on above: Result Comment: . Performed By: #### C UA2 ####[id number] [place], [place] Bacteria Moderate Abnormal Negative [facility] [employer] Comment on above: Result Comment: . Performed By: #### C UA2 ####[facility] [employer] [id number] [place], [place] Bilirubin,Urine Negative Normal Negative [facility] [employer] Comment on above: Result Comment: . Performed By: #### C UA2 ####[address] [place], [place] Cast, Hyaline Negative Normal Negative [facility] [employer] Comment on above: Result Comment: . Performed By: #### C UA2 ####[address] [place], [place] Color (U) Yellow Normal Lt. Yellow [facility] [employer] Comment on above: Result Comment: . Performed By: #### C UA2 ####[id number] [place], [place] Glucose Ql (U) Normal Normal Normal (<70) [facility] [employer] Comment on above: Result Comment: . Performed By: #### C UA2 ####[address] [place], [place] Ketone,Urine Negative Normal Negative [facility] [employer] Comment on above: Result Comment: . Performed By: #### C UA2 ####[facility] [address] [place], [place] Leukocytes,Urine Negative Normal Negative [facility] Comment on above: Result Comment: . Performed By: #### C UA2 ####[place] [id number] [place], [place] Mucous Threads Few Normal Negative [facility] Comment on above: Result Comment: . Performed By: #### C UA2 ####[id number] [place], [place] Nitrites,Urine Negative Normal Negative [facility] Comment on above: Result Comment: . Performed By: #### C UA2 ####[address] [place], [place] Occult Blood,Urine 0.1 mg/dL Abnormal Negative [facility] Comment on above: Result Comment: . Performed By: #### C UA2 ####[address] [place], [place] pH,Urine 5.5 Normal 5.0-8.0 [facility] Comment on above: Result Comment: . Performed By: #### C UA2 ####[address] [place], [place] Protein (U) [Mass/Vol] 10 mg/dL Abnormal Negative [facility] Comment on above: Result Comment: . Performed By: #### C UA2 ####[address] [place], [place] RBC, Urine 26 - 50 Abnormal 0-2 [facility] Comment on above: Result Comment: . Performed By: #### C UA2 ####[address] [place], [place] Specific [facility],Urine 1.023 Normal 1.005 - 1.030 [facility] Comment on above: Result Comment: . Performed By: #### C UA2 ####[address] [place], [place] Squamous Epithelial Negative Normal 3-5 [facility] Comment on above: Result Comment: . Performed By: #### C UA2 ####[address] [place], [place] Urobilinogen,Urine Normal Normal Normal (0-1) [facility] Comment on above: Result Comment: . Performed By: #### C UA2 ####[facility] [place] [address] WBC, Urine 0 - 2 Normal 0-5 [facility] Comment on above: Result Comment: . Performed By: #### C UA2 ####[facility] [place] [address] Urinalysison 11-01-2021 Appearance (U) Clear Clear NA [...] [Mass/Vol] 10 mg/dL Abnormal Negative [facility] Comment on above: . RBC, UA 26-50 Abnormal 0 - 2 /[HPF] [facility] Comment on above: . Specific [facility], Urine 1.023 [facility] Comment on above: . Squam Epithel, UA Negative 3 - 5 /[HPF] [facility] Comment on above: . Urobilinogen, Urine Normal Normal ( 0-1) mg/dL [facility] Comment on above: . WBC, UA 0-2 0 - 5 /[HPF] [facility] Comment on above: . Test Performed by [facility], [address] [place] [address] [facility] Basic Metabolic Panelon 10-06 Anion gap [Moles/Vol] 6 mmol/L Normal 3-13 [facility] Comment on above: Performed By: #### P T/AP, TROPN, BMP3, HEMDF #### [facility] [address] [place], [place] Calcium [Mass/Vol] 9.1 mg/dL Normal 8.4-10.4 [facility] Comment on above: Performed By: #### P T/AP, TROPN, BMP3, HEMDF #### [facility] [address] [place], [place] CO2 [Moles/Vol] 28 mmol/L Normal 22-30 [facility] Comment on above: Performed By: #### P T/AP, TROPN, BMP3, HEMDF #### [place] [place], [place] Glucose [Mass/Vol] 120 mg/dL High 70-100 [facility] Comment on above: Performed By: #### P T/AP, TROPN, BMP3, HEMDF #### [place] [address] [place], [place] Urea nitrogen [Mass/Vol] 17 mg/dL Normal 7-17 [facility] Comment on above: Performed By: #### P T/AP, TROPN, BMP3, HEMDF #### [place] [address] [place], [place] Creatinine [Mass/Vol] 0.65 mg/dL Normal 0.52-1.25 [facility] Comment on above: Performed By: #### P T/AP, TROPN, BMP3, HEMDF #### [place] [address] [place], [place] eGFR OTHER > 90.0 Normal >60 [...] P T/AP, TROPN, BMP3, HEMDF #### [address] GFR/1.73 sq M.predicted among blacks MDRD (S/P/Bld) [Vol rate/Area] mL/min/{1.73_m2} Normal >60 [facility] Comment on above: Performed By: #### P T/AP, TROPN, BMP3, HEMDF #### [address] Potassium [Moles/Vol] 3.8 mmol/L Normal 3.5-5.1 [facility] Comment on above: Performed By: #### P T/AP, TROPN, BMP3, HEMDF #### [address] Chloride [Moles/Vol] 101 mmol/L Normal 98-107 [facility] Comment on above: Performed By: #### P T/AP, TROPN, BMP3, HEMDF #### [address] Sodium [Moles/Vol] 134 mmol/L Low 135-145 [facility] Comment on above: Performed By: #### P T/AP, TROPN, BMP3, HEMDF #### [address] Anion gap [Moles/Vol] 6 mmol/L 3 - 13 mmol/L [facility] Calcium [Mass/Vol] 9.1 mg/dL 8.4 - 10. 4 mg/dL [facility] Chloride [Moles/Vol] 101 mmol/L 98 - 10 7 mmol/L [facility] CO2 [Moles/Vol] 28 mmol/L 22 - 30 mmol/L [facility] Creatinine [Mass/Vol] 0.65 mg/dL 0.52 - 1.25 mg/dL [facility] EGFR IF NonAfrican Serbian >90.0 >60 mL/min [facility] Comment on above: [...] - 17 mg/dL [facility] Test Performed by [id number] [place] [address] LAB [facility] CBC with Auto Differentialon 10-31-2021 [...] - 10.7 10*3/uL [facility] Test Performed by [facility], [address] [place] [id number] [place] [address] LAB [facility] CR Abdomen APon 10-31-2021 CR Abdomen AP Patient Name: ANDREW SIFUENTES Diagnostic Radiology ACCESSION EXAM DATE/TIME PROCEDURE ORDERING PROVIDER [id number] 10/31/2021 20:36 EDT CR Abdomen AP [id number] MARTÍNEZ CPT code 82718 Reason For Exam (CR Abdomen AP) vp patient shunt, 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 CHEST PORTABLE [...] [id number] Diagnostic Radiology ACCESSION EXAM DATE/TIME PROCEDURE ORDERING PROVIDER [id number] 10/31/2021 20:36 EDT CR Chest Portable [id number] MYRON GALINDO CPT code 04771 Reason For Exam (CR Chest Portable) AMS [...] AND[facility]ENTES [facility] [id number] Computed Tomography ACCESSION EXAM DATE/TIME PROCEDURE ORDERING PROVIDER [id number] 10/31/2021 20:[address] Head or Brain w/o [id number] -MYRON DURAN Contrast CPT code 03814 Reason For Exam (CT Head or Brain w/o Contrast) AMS, previous [employer] shunt Report Examination: CT Head Clinical Information: AMS, previous [employer] shunt Comparison: 10/26/2021, MRI 10/27/2021 Findings: Serial [...] J Transcribed Date and Time: 10/31/2021 8:54 [facility] Carla Wong MD - 10/31/2021 Patient Name: AND[facility]W [facility]ENTES [facility] [id number] Computed Tomography ACCESSION EXAM DATE/TIME PROCEDURE ORDERING PROVIDER [id number] 10/31/2021 20:[address] Head or Brain w/o [id number] -MYRON DURAN Contrast CPT code 60018 Reason For Exam (CT Head or Brain w/o Contrast) AMS, previous [employer] shunt Report Examination: CT Head Clinical Information: AMS, previous [employer] shunt Comparison: 10/26/2021, MRI 10/27/2021 Findings: Serial [...] AND[facility]ENTES [facility] [id number] Computed Tomography ACCESSION EXAM DATE/TIME PROCEDURE ORDERING PROVIDER [id number] 10/31/2021 20:[address] Head or Brain w/o [id number] -MYRON DURAN Contrast CPT code 46951 Reason For Exam (CT Head or Brain w/o Contrast) AMS, previous [employer] shunt Report Examination: CT Head Clinical Information: AMS, previous [employer] shunt Comparison: 10/26/2021, MRI 10/27/2021 Findings: Serial [...] [employer] Dante Kim MD 10/31/21 2201 Normal [facility] ED Provider Note [facility] EMERGENCY DEPARTMENT ENCOUNTER Pt Name: Andrew Sifuentes Birthdate 1950 Date of evaluation: 10/31/2021 Provider: Myron Duran MD CHIEF COMPLAINT Chief Complaint Patient presents with ? Altered Mental Status Pt presents to ED via [facility] for complaint listed. Pt is from [facility]. Pt's LKW was 1000 hours today. [...] a history of hydrocephalus with a [employer] shunt. 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 REVIEW OF [...] ? Kidney stone ? Neuropathy ? 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1950 Requested By: MYRON DURAN Order Number: [id number] Reading MD: Dante Kim Measurements Intervals [place] Rate: 91 P: 41 KS: 154 QRS: 50 QRSD: 147 T: 8 QT: 385 QTc: 474 Interpretive Statements Sinus rhythm Right bundle branch block Electronically Signed On 10-31-2021 20:36:25 EDT by Dante Kim [facility] Dante Kim M D - 10/31/2021 [facility] Test Date: 2021-10-31 Pat Name: ANDREW SIFUENTES Department: ER Room: 40 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1950 Requested By: MYRON DURAN Order Number: [id number] Reading MD: Dante Kim Measurements Intervals [place] Rate: 91 P: 41 KS: 154 QRS: 50 QRSD: 147 T: 8 QT: 385 QTc: 474 Interpretive Statements Sinus rhythm Right bundle branch block Electronically Signed On 10-31-2021 20:36:25 EDT by Dante Kim [facility] Work Phone: EKG 12 Lead - Chest PainOrde red By: Dante Kim on 10-31-2021 [facility] Work Phone: Hemogram w/ Autodiffon 10-31 Abs Baso Cnt 0.1 10*3/uL Normal 0.0-0.2 [facility] Comment on above: Performed By: #### P T/AP, TROPN, BMP3, HEMDF #### [facility] [address] [place] [address] Abs Neutrophile Cnt 6.0 10*3/uL Normal 1.8-7.0 [facility] Comment on above: Performed By: #### P T/AP, TROPN, BMP3, HEMDF #### [place] [place], [place] Basophils/100 WBC (Bld) 1.1 % Normal 0.0-2.0 [facility] Comment on above: Performed By: #### P T/AP, TROPN, BMP3, HEMDF #### [place] [address] [place] Eosinophils (Bld) [#/Vol] 0.2 10*3/uL Normal 0.0-0.5 [facility] Comment on above: Performed By: #### P T/AP, TROPN, BMP3, HEMDF #### [place] [address] [place] Eosinophils/100 WBC (Bld) 2.3 % Normal 1.0-6.0 [facility] Comment on above: Performed By: #### P T/AP, TROPN, BMP3, HEMDF #### [address] Erythrocyte distribution width (RBC) [Ratio] 17.2 % High 11.5-14.5 [facility] Comment on above: Performed By: #### P T/AP, TROPN, BMP3, HEMDF #### [address] Granulocytes/100 WBC (Bld) 61.8 % Normal 40.0-80.0 [facility] Comment on above: Performed By: #### P T/AP, TROPN, BMP3, HEMDF #### [place] [address] [place] Hematocrit (Bld) [Volume fraction] 35.0 % Low 40.0-52.0 [facility] Comment on above: Performed By: #### P T/AP, TROPN, BMP3, HEMDF #### [place] [address] [place] Hemoglobin (Bld) [Mass/Vol] 11.3 g/dL Low 13.0-18.0 [facility] Comment on above: Performed By: #### P T/AP, TROPN, BMP3, HEMDF #### [place] [address] [place], [place] Lymphocytes (Bld) [#/Vol] 2.8 10*3/uL Normal 1.0-4.3 [facility] Comment on above: Performed By: #### P T/AP, TROPN, BMP3, HEMDF #### [place] [address] [place] Lymphocytes/100 WBC (Bld) 29.2 % Normal 20.0-40.0 [facility] Comment on above: Performed By: #### P T/AP, TROPN, BMP3, HEMDF #### [address] MCH (RBC) [Entitic mass] 27.5 pg Normal 26.0-34.0 [facility] Comment on above: Performed By: #### P T/AP, TROPN, BMP3, HEMDF #### [address] [place], [place] MCHC 32.3 % Normal 32.0-36.0 [facility] Comment on above: Performed By: #### P T/AP, TROPN, BMP3, HEMDF #### [address] MCV (RBC) [Entitic vol] 85.0 fL Normal 80.0-98.0 [facility] Comment on above: Performed By: #### P T/AP, TROPN, BMP3, HEMDF #### [place] [address] [place], [place] Monocytes (Bld) [#/Vol] 0.5 10*3/uL Normal 0.0-0.8 [facility] Comment on above: Performed By: #### P T/AP, TROPN, BMP3, HEMDF #### [place] [place] Monocytes/100 WBC (Bld) 5.6 % Normal 2.0-10.0 [facility] Comment on above: Performed By: #### P T/AP, TROPN, BMP3, HEMDF #### [facility] [address] [place], [place] Platelet mean volume (Bld) [Entitic vol] 8.6 fL Normal 7.4-12.4 [facility] Comment on above: Result Comment: MPV is a calculated measurement using platelet volume ratio. Performed By: #### P T/AP, TROPN, BMP3, HEMDF #### [facility] [address] [place], [place] Platelets (Bld) [#/Vol] 348 10*3/uL Normal 140-440 [facility] Comment on above: Performed By: #### P T/AP, TROPN, BMP3, HEMDF #### [place] [address] [place], [place] RBC (Bld) [#/Vol] 4.12 10*6/uL Low 4.40-5.90 [facility] Comment on above: Performed By: #### P T/AP, TROPN, BMP3, HEMDF #### [facility] [address] [place], [place] WBC (Bld) [#/Vol] 9.7 10*3/uL Normal 3.6-10.7 [facility] Comment on above: Performed By: #### P T/AP, TROPN, BMP3, HEMDF #### [facility] [address] [place], [place] Laboratory - Coagulationon 0 10-31-2021 INR Coag (Bld) [Relative time] 2.0 {INR} [facility] Work Phone: Comment on above: Critical Value > 4.0 No Panel Informationon 10-31 Radiology Study observation (narrative) [facility] Work Phone: PROTIME/INR & PTTon 11-01-19 aPTT Coag (Bld) [Time] 39.2 s High 20.0 - 30.5 s [facility] Comment on above: NOTE: The therapeuti c time for Heparin anticoagulation, based on Xa activity inhibition, is an APTT of 46-80 seconds. INR Coag (Bld) [Relative time] 1.9 {INR} High [facility] Comment on above: Recommended Anticoag ulant [...] Interpretation and review of laboratory results Abnormal [facility] PT Coag (PPP) [Time] 19.8 s High 9.0 - 12.0 s [facility] Comment on above: . Test Performed by [facility], [address] [place] [id number] [facility] Protime AND APTTon 2 aPTT Coag (Bld) [Time] 39.2 s High 20.0-30.5 [facility] Comment on above: Result Comment: NOTE : The therapeutic time for Heparin anticoagulation, based on Xa activity inhibition, is an APTT of 46-80 seconds. Performed By: #### P T/AP, TROPN, BMP3, HEMDF #### [address] [address] INR 1.9 High 0.9-1.1 [facility] [...] P T/AP, TROPN, BMP3, HEMDF #### [address] [address] PT Coag (PPP) [Time] 19.8 s High 9.0-12.0 [facility] Comment on above: Result Comment: . Performed By: #### P T/AP, TROPN, BMP3, HEMDF #### [address] [address] Troponin Ion 10-31-2021 Troponin I.cardiac [Mass/Vol] ng/mL Normal 0.000-0.034 [facility] Comment on above: Result Comment: . Performed By: #### P T/AP, TROPN, BMP3, HEMDF #### [facility] [address] [place] [address] Troponin x1on 10-31-2021 Troponin I.cardiac [Mass/Vol] ng/mL 0.000 - 0.034 ng/mL [facility] Comment on above: . Test Performed by [facility], [address] [place] [id number] [facility] Whole blood prothrombin time on 10-31-2021 PT Coag (Bld) [Time] 23.7 s 11.7-14.9 [facility] Work Phone: XR ABDOMEN (KUB) (SINGLE AP VIEW)on 10-31-2021 Patient Name: AND[facility]W [facility]IF[facility]ENTES [id number] Diagnostic Radiology ACCESSION EXAM DATE/TIME PROCEDURE ORDERING PROVIDER [id number] 10/31/2021 20:36 EDT CR Abdomen AP [id number] -MYRON DURAN CPT code 44769 Reason For Exam (CR Abdomen AP) vp patient shunt, 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 CHEST PORTABLE [...] Radiology ACCESSION EXAM DATE/TIME PROCEDURE ORDERING PROVIDER [id number] 10/31/2021 20:36 EDT CR Abdomen AP [id number] -MYRON DURAN CPT code 99603 Reason For Exam (CR Abdomen AP) vp patient shunt, 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 CHEST PORTABLE [...] and Time: 10/31/2021 8:49 [facility] Work Phone: [facility] Work Phone: XR CHEST PORTABLEon 11-01-19 Patient Name: ANDREW SIFUENTES Diagnostic Radiology ACCESSION EXAM DATE/TIME PROCEDURE ORDERING PROVIDER [id number] 10/31/2021 20:36 EDT CR Chest Portable [id number] -MYRON DURAN CPT code 72946 Reason For Exam (CR Chest Portable) AMS [...] WENDELL Transcribed Date and Time: 10/31/2021 8:49 [facility] Huang Munoz MD - 10/31/2021 Patient Name: ANDREW SIFUENTES Diagnostic Radiology ACCESSION EXAM DATE/TIME PROCEDURE ORDERING PROVIDER [id number] 10/31/2021 20:36 EDT CR Chest Portable [id number] MYRON GALINDO CPT code 76288 Reason For Exam (CR Chest Portable) AMS [...] WENDELL Transcribed Date and Time: 10/31/2021 8:49 [facility] Work Phone: XR CHEST PORTABLEOrdered By: Huang Reynoso on 10-31-2021 [facility] Work Phone: Lupus Anticoagulanton 2021 DRVVT Confirmation Test Not Applicable Negative ratio [facility] Work Phone: dRVVT Screen 38 [facility] Work Phone: Hex Phosph Neut Test Not Applicable Negative NA [facility] Work Phone: Interpretation and review of laboratory results Abnormal [facility] Work Phone: LUPUS INTERPRETATION See Note [facility] Work Phone: Comment on above: Lupus anticoagulant [...] has not already been performed. Performed by [employer] [address], [facility] [place] [address] www[email or web address], Quiana Castro MD - Lab. Director Platelet Neutralization Not Applicable Negative NA [facility] Work Phone: [phone] PTT-D Heparin Neutralized 48 [facility] Work Phone: PTT-LA 55 High [facility] Work Phone: Reptilase Tm 17.6 <=21.9 sec [facility] Work Phone: Thrombin Time 25.3 High [facility] Work Phone: [facility] Work Phone: Lupus Anticoagulant Reflexiv e Panelon 10-29-2021 aPTT Coag (Bld) [Time] 55 s High 32-48 [facility] Comment on above: Performed By: #### C OVAG #### [facility] [address] [place] [address] aPTT Coag (Bld) [Time] 48 s Normal 32-48 [facility] Comment on above: Performed By: #### C OVAG #### [facility] [address] [place] [address] DRVVT 1:1 Mix Not Applicable Normal 33-44 [facility] Work Phone: Comment on above: Performed By: #### C OVAG #### [facility] [address] [place] [address] dRVVT Confirmation Not Applicable Normal Negative [facility] Comment on above: Performed By: #### C OVAG #### [facility] [address] [place] [address] dRVVT Screen 38 sec Normal 33-44 [facility] Comment on above: Performed By: #### C OVAG #### [facility] [address] [place] [address] Hexagonal Phospholipid Neutral Reflex Not Applicable Normal Negative [facility] Comment on above: Performed By: #### C OVAG #### [facility] [address] [place] [address] Lupus Anticoagulant Interpretation See Note Normal [facility] [...] has not already been performed. Performed by [employer]), [address] [place] [id number] [employer], Quiana Castro MD - Lab. Director Performed By: #### C OVAG #### [facility] [address] [place] [address] Platelet Neutralization (PTT-D, Confirm) Not Applicable Normal Negative [facility] Comment on above: Performed By: #### C OVAG #### [facility] [address] [place] [address] PT Coag (PPP) [Time] 14.7 s Normal 12.0-15.5 [facility] Work Phone: Comment on above: Performed By: #### C OVAG #### [facility] [address] [place] [address] PTT-D 1:1 Mix Not Applicable Normal 32-48 [facility] Work Phone: Comment on above: Performed By: #### C OVAG #### [facility] [address] [place] [address] Reptilase Time 17.6 sec Normal <=21.9 [facility] Comment on above: Performed By: #### C OVAG #### [facility] [address] [place] [address] Thrombin Time 25.3 sec High 14.7-19.5 [facility] Comment on above: Performed By: #### C OVAG #### [facility] [address] [place] [address] POCT COVID-19, Antigenon SARS-CoV-2 Nucleocapsid Antigen Negative Negative NA [facility] Comment on above: A negative result does not rule out the possibility of SARS-CoV-2 infection. NAAT-based methods should be considered for symptomatic patients presenting greater than seven days after onset of symptoms. Method: Lateral flow immunoassay. Fact sheets for healthcare providers and patients can be found at the following sites: https://www.fda.gov/media/850996/download https://www.fda.gov/media/972131/download Test Performed by [facility], [address] [facility] [place] [id number] [place] [address] LAB [facility] Prothrombin Timeon INR 2.7 High 0.9-1.1 [facility] Comment on above: Result Comment: Haryr mmended Anticoagulant Therapy: SEE BELOW ----- INR [...] #### [facility] [address] [place] [address] PT Coag (PPP) [Time] 27.4 s High 9.0-12.0 [facility] Comment on above: Result Comment: . Performed By: #### P T #### [facility] [address] [place] [address] Protime-INRon 10-29-2021 INR Coag (Bld) [Relative time] 2.7 {INR} High [facility] Work Phone: Comment on above: Recommended [...] Interpretation and review of laboratory results Abnormal [facility] Work Phone: PT Coag (PPP) [Time] 27.4 s High 9.0 - 12.0 s [facility] Work Phone: Comment on above: . Test Performed by [facility], [address], [place], [place] [address] [facility] Work Phone: [phone] SARS-CoV-2 Antigenon 022 SARS-CoV-2 Antigen Negative Normal Negative [facility] Comment on above: Result Comment: A negative result does not rule out the possibility of SARS-CoV-2 infection. NAAT-based methods should be considered for symptomatic patients presenting greater than seven days after onset of symptoms. Method: Lateral flow immunoassay. Fact sheets for healthcare providers and patients can be found at the following sites: https://www.[employer].gov/media/144534/download https://www.[employer].gov/media/075862/download Performed By: #### C OVAG #### [facility] [address] [place] [address] CBCon 10-28-2021 Hematocrit (Bld) [Volume fraction] 33.4 % Low 40.0 - 52.0 % [facility] Work Phone: Hemoglobin (Bld) [Mass/Vol] 11.0 g/dL Low 13.0 - 18.0 g/dL [facility] Work Phone: Interpretation and review of laboratory results Abnormal [facility] Work Phone: MCH (RBC) [Entitic mass] 27.8 pg 26.0 - 34.0 pg [facility] Work Phone: MCHC (RBC) [Mass/Vol] 32.8 % 32.0 - 36.0 % [facility] Work Phone: MCV (RBC) [Entitic vol] 84.8 fL 80.0 - 98.0 fL [facility] Work Phone: Platelet distribution width (Bld) [Ratio] 17.1 % High 11.5 - 14.5 % [employer] Work Phone: Platelet mean volume (Bld) [Entitic vol] 8.3 fL 7.4 - 12.4 fL [employer] Work Phone: Comment on above: MPV is a calculated measurement using platelet volume ratio. Platelets (Bld) [#/Vol] 344 10*3/uL 140 - 440 10*3/uL [employer] Work Phone: [phone] RBC (Bld) [#/Vol] 3.94 10*6/uL Low 4.40 - 5.9 0 10*6/uL [employer] Work Phone: [phone] WBC (Bld) [#/Vol] 10.0 10*3/uL 3.6 - 10.7 10*3/uL [employer] Work Phone: Test Performed by [facility], [address] [place], [place] [id number] [place] [address] LAB [facility] Work Phone: Comp Metabolic Panelon 10-28 ALP [Catalytic activity/Vol] 103 U/L Normal 38-126 [facility] Comment on above: Performed By: #### C A19O, LUPUS #### The performing lab is in the report. #### NSEO #### [facility] #### HEMDF, LDH3, BMP3, MG3, PT, CEA2 #### [facility] [address] [place] [address] #### B2GPM, B2GPA, B2GPG #### [facility] [address] [place] [address] ALT [Catalytic activity/Vol] 26 U/L Normal 0-49 [...] [facility] [address] [place] [address] #### B2GPM, B2GPA, B2GPG #### [address] AST [Catalytic activity/Vol] 24 U/L Normal 15-46 [facility] Comment on above: Performed By: #### C A19O, LUPUS #### The performing lab is in the report. #### NSEO #### [facility] #### HEMDF, LDH3, BMP3, MG3, PT, CEA2 #### [place] [address] [place] #### B2GPM, B2GPA, B2GPG #### [address] Calcium [Mass/Vol] 9.1 mg/dL Normal 8.4-10.4 [facility] Comment on above: Performed By: #### C A19O, LUPUS #### The performing lab is in the report. #### NSEO #### [facility] #### HEMDF, LDH3, BMP3, MG3, PT, CEA2 #### [address] [place] [address] #### B2GPM, B2GPA, B2GPG #### [address] Glucose [Mass/Vol] 117 mg/dL High 70-100 [facility] Comment on above: Performed By: #### C A19O, LUPUS #### The performing lab is in the report. #### NSEO #### [facility] #### HEMDF, LDH3, BMP3, MG3, PT, CEA2 #### [place] [address] [place] [address] #### B2GPM, B2GPA, B2GPG #### [address] Urea nitrogen [Mass/Vol] 16 mg/dL Normal 7-17 [facility] Comment on above: Performed By: #### C A19O, LUPUS #### The performing lab is in the report. #### NSEO #### [facility] #### HEMDF, LDH3, BMP3, MG3, PT, CEA2 #### [place] [address] [place] [address] #### B2GPM, B2GPA, B2GPG #### [address] Anion gap [Moles/Vol] 5 mmol/L Normal 3-13 [facility] Comment on above: Performed By: #### C A19O, LUPUS #### The performing lab is in the report. #### NSEO #### [facility] #### HEMDF, LDH3, BMP3, MG3, PT, CEA2 #### [place] [address] [facility] [place] [address] #### B2GPM, B2GPA, B2GPG #### [address] Bilirubin [Mass/Vol] 0.4 mg/dL Normal 0.2-1.3 [facility] Comment on above: Performed By: #### C A19O, LUPUS #### The performing lab is in the report. #### NSEO #### [facility] #### HEMDF, LDH3, BMP3, MG3, PT, CEA2 #### [place] [address] [place] [address] #### B2GPM, B2GPA, B2GPG #### [address] CO2 [Moles/Vol] 29 mmol/L Normal 22-30 [facility] Comment on above: Performed By: #### C A19O, LUPUS #### The performing lab is in the report. #### NSEO #### [facility] #### HEMDF, LDH3, BMP3, MG3, PT, CEA2 #### [place] [address] [place] [address] #### B2GPM, B2GPA, B2GPG #### [address] Creatinine [Mass/Vol] 0.71 mg/dL Normal 0.52-1.25 [facility] Comment on above: Performed By: #### C A19O, LUPUS #### The performing lab is in the report. #### NSEO #### [facility] #### HEMDF, LDH3, BMP3, MG3, PT, CEA2 #### [facility] [address] [place], [place] #### B2GPM, B2GPA, B2GPG #### [address] eGFR OTHER > 90.0 Normal >60 [...] #### [facility] [address] [facility] [place] [address] #### B2GPM, B2GPA, B2GPG #### [address] GFR/1.73 sq M.predicted among blacks MDRD (S/P/Bld) [Vol rate/Area] mL/min/{1.73_m2} Normal >60 [facility] Comment on above: Performed By: #### C A19O, LUPUS #### The performing lab is in the report. #### NSEO #### [facility] #### HEMDF, LDH3, BMP3, MG3, PT, CEA2 #### [facility] [address] [place] [address] #### B2GPM, B2GPA, B2GPG #### [address] Protein [Mass/Vol] 7.1 g/dL Normal 6.3-8.2 [facility] Comment on above: Performed By: #### C A19O, LUPUS #### The performing lab is in the report. #### NSEO #### [facility] #### HEMDF, LDH3, BMP3, MG3, PT, CEA2 #### [facility] [address] [facility] [address] #### B2GPM, B2GPA, B2GPG #### [address] Potassium [Moles/Vol] 3.5 mmol/L Normal 3.5-5.1 [facility] Comment on above: Performed By: #### C A19O, LUPUS #### The performing lab is in the report. #### NSEO #### [facility] #### HEMDF, LDH3, BMP3, MG3, PT, CEA2 #### [facility] [address] [facility] [address] #### B2GPM, B2GPA, B2GPG #### [address] Sodium [Moles/Vol] 138 mmol/L Normal 135-145 [facility] Comment on above: Performed By: #### C A19O, LUPUS #### The performing lab is in the report. #### NSEO #### [facility] #### HEMDF, LDH3, BMP3, MG3, PT, CEA2 #### [facility] [address] [place] [address] #### B2GPM, B2GPA, B2GPG #### [address] Albumin [Mass/Vol] 3.7 g/dL Normal 3.5-5.0 [facility] Comment on above: Performed By: #### C A19O, LUPUS #### The performing lab is in the report. #### NSEO #### [facility] #### HEMDF, LDH3, BMP3, MG3, PT, CEA2 #### [facility] [address] [place] [address] #### B2GPM, B2GPA, B2GPG #### [address] Chloride [Moles/Vol] 104 mmol/L Normal 98-107 [facility] Comment on above: Performed By: #### C A19O, LUPUS #### The performing lab is in the report. #### NSEO #### [facility] #### HEMDF, LDH3, BMP3, MG3, PT, CEA2 #### [facility] [address] [place] [address] #### B2GPM, B2GPA, B2GPG #### [address] Comprehensive Metabolic Pane kiel 10-28-2021 Albumin [Mass/Vol] 3.7 g/dL 3.5 - 5.0 g/dL [facility] Work Phone: ALP (Bld) [Catalytic activity/Vol] 103 U/L 38 - 126 U/L [facility] Work Phone: ALT [Catalytic activity/Vol] 26 U/L 0 - 49 U/L [facility] Work Phone: Comment on above: The [...] - 10. 4 mg/dL [facility] Work Phone: [phone] Chloride [Moles/Vol] 104 mmol/L 98 - 10 7 mmol/L [facility] Work Phone: CO2 [Moles/Vol] 29 mmol/L 22 - 30 mmol/L [facility] Work Phone: Creatinine [Mass/Vol] 0.71 mg/dL 0.52 - 1.25 mg/dL [facility] Work Phone: EGFR IF NonAfrican Serbian >90.0 >60 mL/min [facility] Work Phone: Comment on above: KDIGO [...] fraction] 7.1 g/dL 6.3 - 8.2 g/dL [facility] Work Phone: GFR/1.73 sq M.predicted among blacks MDRD (S/P/Bld) [Vol rate/Area] mL/min/{1.73_m2} >60 mL/min [facility] Work Phone: Glucose [Mass/Vol] 117 mg/dL High 70 - 100 mg/dL [facility] Work Phone: Interpretation and review of laboratory results Abnormal [facility] Work Phone: Potassium [Moles/Vol] 3.5 mmol/L 3.5 - 5.1 mmol/L [facility] Work Phone: Sodium [Moles/Vol] 138 mmol/L 135 - 145 mmol/L [facility] Work Phone: Urea nitrogen (BldV) [Mass/Vol] 16 mg/dL 7 - 17 mg/dL [facility] Work Phone: Test Performed by [facility], [address] [place] [id number] [place] [address] [facility] Work Phone: Hemogramon 10-28-2021 Erythrocyte distribution width (RBC) [Ratio] 17.1 % High 11.5-14.5 [facility] Comment on above: Performed By: #### C A19O, LUPUS #### The performing lab is in the report. #### NSEO #### [facility] #### HEMDF, LDH3, BMP3, MG3, PT, CEA2 #### [address] [address] #### B2GPM, B2GPA, B2GPG #### [address] [address] Hematocrit (Bld) [Volume fraction] 33.4 % Low 40.0-52.0 [facility] Comment on above: Performed By: #### C A19O, LUPUS #### The performing lab is in the report. #### NSEO #### [facility] #### HEMDF, LDH3, BMP3, MG3, PT, CEA2 #### [address] [address] #### B2GPM, B2GPA, B2GPG #### [address] Hemoglobin (Bld) [Mass/Vol] 11.0 g/dL Low 13.0-18.0 [facility] Comment on above: Performed By: #### C A19O, LUPUS #### The performing lab is in the report. #### NSEO #### [facility] #### HEMDF, LDH3, BMP3, MG3, PT, CEA2 #### [place] [address] [place], [place] #### B2GPM, B2GPA, B2GPG #### [address] MCH (RBC) [Entitic mass] 27.8 pg Normal 26.0-34.0 [facility] Comment on above: Performed By: #### C A19O, LUPUS #### The performing lab is in the report. #### NSEO #### [facility] #### HEMDF, LDH3, BMP3, MG3, PT, CEA2 #### [address] [place], [place] #### B2GPM, B2GPA, B2GPG #### [address] MCHC 32.8 % Normal 32.0-36.0 [facility] Comment on above: Performed By: #### C A19O, LUPUS #### The performing lab is in the report. #### NSEO #### [facility] #### HEMDF, LDH3, BMP3, MG3, PT, CEA2 #### [address] [place], [place] #### B2GPM, B2GPA, B2GPG #### [address] MCV (RBC) [Entitic vol] 84.8 fL Normal 80.0-98.0 [facility] Comment on above: Performed By: #### C A19O, LUPUS #### The performing lab is in the report. #### NSEO #### [facility] #### HEMDF, LDH3, BMP3, MG3, PT, CEA2 #### [facility] [address] [place] [address] #### B2GPM, B2GPA, B2GPG #### [address] Platelet mean volume (Bld) [Entitic vol] 8.3 fL Normal 7.4-12.4 [facility] Comment on above: Result Comment: MPV is a calculated measurement using platelet volume ratio. Performed By: #### C A19O, LUPUS #### The performing lab is in the report. #### NSEO #### [facility] #### HEMDF, LDH3, BMP3, MG3, PT, CEA2 #### [address] [facility] [place] #### B2GPM, B2GPA, B2GPG #### [address] Platelets (Bld) [#/Vol] 344 10*3/uL Normal 140-440 [facility] Comment on above: Performed By: #### C A19O, LUPUS #### The performing lab is in the report. #### NSEO #### [facility] #### HEMDF, LDH3, BMP3, MG3, PT, CEA2 #### [address] [facility] #### B2GPM, B2GPA, B2GPG #### [address] RBC (Bld) [#/Vol] 3.94 10*6/uL Low 4.40-5.90 [facility] Comment on above: Performed By: #### C A19O, LUPUS #### The performing lab is in the report. #### NSEO #### [facility] #### HEMDF, LDH3, BMP3, MG3, PT, CEA2 #### [address] [place] [address] #### B2GPM, B2GPA, B2GPG #### [facility] [address] [place] [address] WBC (Bld) [#/Vol] 10.0 10*3/uL Normal 3.6-10.7 [facility] Comment on above: Performed By: #### C A19O, LUPUS #### The performing lab is in the report. #### NSEO #### [facility] #### HEMDF, LDH3, BMP3, MG3, PT, CEA2 #### [facility] [address] [place] [address] #### B2GPM, B2GPA, B2GPG #### [facility] [address], [place] Neuron Specific Enolaseon Neuron Specific Enolase [...] Serum This assay is performed using the [employer] NSE Kryptor Immunoassay. Results obtained with different assay methods or kits cannot be used interchangeably. Results cannot be interpreted as absolute evidence of the presence or absence of malignant disease. This test was developed and its performance characteristics determined by [employer]. It has not been cleared or approved by the [place] Food and Drug Administration. This test was performed in a CLIA certified laboratory and is intended for clinical purposes. Performed By: #### C OVAG #### [facility] [address] [place] [address] Neuron specific enolase (NSE )on 10-28-2021 Neuron Specific Enolase 20.8 [facility] Work Phone: Comment on above: Neuron Specific Enol ase, Serum 20.8 ng/mL H (Ref Interval: <=12.7) NSE and Hgb are elevated in the specimen. The elevated NSE may be a result of hemolysis as NSE is expressed in red blood cells. Interpret results with caution. INTERPRETIVE INFORMATION: Neuron Specific Enolase in Serum This assay is performed using the [employer] NSE Kryptor Immunoassay. Results obtained with different assay methods or kits cannot be used interchangeably. Results cannot be interpreted as absolute evidence of the presence or absence of malignant disease. This test was developed and its performance characteristics determined by [employer] It has not been cleared or approved by the [place] Food and Drug Administration. This test was performed in a CLIA certified laboratory and is intended for clinical purposes. 1 [facility] Work Phone: Prothrombin Timeon 2 INR 3.1 High 0.9-1.1 [facility] Comment on [...] #### [facility] [address] [place] [address] #### B2GPM, B2GPA, B2GPG #### [address] [phone] PT Coag (PPP) [Time] 30.8 s High 9.0-12.0 [facility] Comment on above: Result Comment: . Performed By: #### C A19O, LUPUS #### The performing lab is in the report. #### NSEO #### [facility] #### HEMDF, LDH3, BMP3, MG3, PT, CEA2 #### [facility] [address] [place] [address] #### B2GPM, B2GPA, B2GPG #### [address] [phone] Protime-INRon 10-28-2021 INR Coag (Bld) [Relative time] 3.1 {INR} High [facility] Work Phone: Comment on above: Recommended [...] Interpretation and review of laboratory results Abnormal [facility] Work Phone: PT Coag (PPP) [Time] 30.8 s High 9.0 - 12.0 s [employer] Work Phone: Comment on above: . Test Performed by [facility], [address] [place], [place] [id number] [place] [address] [facility] Work Phone: MRI BRAIN WO CONTRASTon 10-06 Patient Name: ANDREW SIFUENTES [facility] ACCESSION EXAM DATE/TIME PROCEDURE ORDERING PROVIDER [id number] 10/27/2021 13:14 EDT MRI Brain w/o Contrast UNASSIGNED, UNASSIGNED CPT code 91527 Reason For Exam (MRI Brain w/o Contrast) stroke Patient has [employer] shunt in place, please follow Radiology protocol [...] [facility]AMA Transcribed Date and Time: 10/27/2021 2:39 [facility] Venus Loyd MD - 10/27/2021 Patient Name: ANDREW SIFUENTES [facility] Imaging ACCESSION EXAM DATE/TIME PROCEDURE ORDERING PROVIDER [id number] 10/27/2021 13:14 EDT MRI Brain w/o Contrast UNASSIGNED, UNASSIGNED CPT code 41753 Reason For Exam (MRI Brain w/o Contrast) stroke Patient has [employer] shunt in place, please follow Radiology protocol [...] Brain w/o Contrast Patient Name: ANDREW VELAZQUEZ [facility]#: [id number] Magnetic Resonance Imaging ACCESSION EXAM DATE/TIME PROCEDURE ORDERING PROVIDER [id number] 10/27/2021 13:14 EDT MRI Brain w/o Contrast UNASSIGNED, UNASSIGNED CPT code 92393 Reason For Exam (MRI Brain w/o Contrast) stroke Patient has [employer] shunt in place, please follow Radiology protocol [...] 2:39 Normal [facility] Prothrombin Timeon INR 2.1 High 0.9-1.1 [facility] [...] [facility] [address] [place] [address] PT Coag (PPP) [Time] 21.9 s High 9.0-12.0 [facility] Work Phone: Comment on above: . Result Comment: . Performed By: #### P T #### [facility] [address] [place] [address] Protime-INRon 10-27-2021 INR Coag (Bld) [Relative time] 2.1 {INR} High [facility] Work Phone: Comment on above: Recommended [...] Interpretation and review of laboratory results Abnormal [facility] Work Phone: Test Performed by [facility], [address] [place], [place], [place] [address] [facility] Work Phone: CT HEAD WO CONTRASTon 2021 Patient Name: ANDREW SIFUENTES Computed Tomography ACCESSION EXAM DATE/TIME PROCEDURE ORDERING PROVIDER [id number] 10/26/2021 11:[address] Head or Brain w/o JUNIE PINEDA ALLISON Contrast CPT code 21482 Reason For Exam (CT Head or Brain w/o Contrast) hydrocephalus. thank you Report CLINICAL INFORMATION: Hydrocephalus. Shunt. 3 mm axial cuts through the head are obtained without IV contrast. The examination is compared to a previous study dated 06/29/2014. FINDINGS: Old [employer] shunt tubing is noted bilaterally. The new [...] clear. IMPRESSION: 1. Old and new [employer] shunt tubing. 2. No hydrocephalus. 3. Atrophy [...] [id number] Computed Tomography ACCESSION EXAM DATE/TIME PROCEDURE ORDERING PROVIDER [id number] 10/26/2021 11:[address] Head or Brain w/o JUNIE PINEDA ALLISON Contrast CPT code 20898 Reason For Exam (CT Head or Brain w/o Contrast) hydrocephalus. thank you Report CLINICAL INFORMATION: Hydrocephalus. Shunt. 3 mm axial cuts through the head are obtained without IV contrast. The examination is compared to a previous study dated 06/29/2014. FINDINGS: Old [employer] shunt tubing is noted bilaterally. The new [...] clear. IMPRESSION: 1. Old and new [employer] shunt tubing. 2. No hydrocephalus. 3. Atrophy [...] Tomography ACCESSION EXAM DATE/TIME PROCEDURE ORDERING PROVIDER [id number] 10/26/2021 11:[address] Head or Brain w/o JUNIE PINEDA, SARINA Contrast CPT code 04453 Reason For Exam (CT Head or Brain w/o Contrast) hydrocephalus. thank you Report CLINICAL INFORMATION: Hydrocephalus. Shunt. 3 mm axial cuts through the head are obtained without IV contrast. The examination is compared to a previous study dated 06/29/2014. FINDINGS: Old [employer] shunt tubing is noted bilaterally. The new [...] clear. IMPRESSION: 1. Old and new [employer] shunt tubing. 2. No hydrocephalus. 3. 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 Barreto REASON FOR EXAM: seizures HISTORY: Andrew Sifuentes is a 71 y.o. male with history of obstructive hydrocephalus s/p [employer] shunt in 1987, needing multiple revisions and [...] limits and both old and new [employer] shunt tubing noted. At present patient is awake, follows commands, was able to tell his name, and that he was in hospital but not oriented to time. Per documentation patient had NCSE in May 2021, was on Vimpat, but it was discontinued as there was no evidence of recurrent seizures in July 2021 by Neurology at [facility], per daughter patient was on Dilantin [...] with video was carried out at [facility]. Scalp electrodes were positioned in person by an computed tomography technologist, following patient education, according to the 10-20 International system of electrode placement and maintained for integrity and quality of the recording. EEG data with video was recorded continuously and digitally stored. The computed tomography technologist reviewed all automated detections and manual [...] No normal vari (more content not included)... [employer] Work Phone: [employer] Work Phone: No Panel Informationon 10-26 Radiology Study observation (narrative) [employer] Work Phone: Prothrombin Timeon 2 INR 1.9 High 0.9-1.1 [facility] [employer] Comment on above: Result Comment: Harry mmended [...] Infarction Performed By: #### C OVAG #### [place] [employer] [address] [place] [address] PT Coag (PPP) [Time] 19.7 s High 9.0-12.0 [facility] [facility] Comment on above: Result Comment: . Performed By: #### C OVAG #### [facility] [address] [place] [address] Protime-INRon 10-26-2021 INR Coag (Bld) [Relative time] 1.9 {INR} High [facility] Work Phone: Comment on above: Recommended [...] Interpretation and review of laboratory results Abnormal [facility] Work Phone: PT Coag (PPP) [Time] 19.7 s High 9.0 - 12.0 s [facility] Work Phone: Comment on above: . Test Performed by [facility], [address] [place], [place] [id number] [place] [address] LAB [facility] Work Phone: CA 19-9on 10-25-2021 CA 19-9 17 U/mL Normal <=35 [facility] Work Phone: Comment on above: INTERPRETIVE [...] or absence of malignant disease. Performed By: [place] [address] Fabricating Machine Operator: Quiana Castro MD Result Comment: [...] or absence of malignant disease. Performed By: [place] [address] Fabricating Machine Operator: Quiana Castro MD Performed By: #### C OVAG #### [facility] [address] [facility] [address] Cancer Antigen 19-9on 2021 [facility] Work Phone: Prothrombin Timeon INR 1.5 High 0.9-1.1 [facility] Comment on above: Result Comment: Harry [...] Infarction Performed By: #### P T #### [facility] [address] [place] [address] PT Coag (PPP) [Time] 15.6 s High 9.0-12.0 [facility] Comment on above: Result Comment: . Performed By: #### P T #### [facility] [address] [facility] [address] Protime-INRon 10-25-2021 INR Coag (Bld) [Relative time] 1.5 {INR} High [facility] Work Phone: Comment on above: Recommended [...] Interpretation and review of laboratory results Abnormal [facility] Work Phone: PT Coag (PPP) [Time] 15.6 s High 9.0 - 12.0 s [facility] Work Phone: Comment on above: . Test Performed by [facility], [address] [place], [place] [address] [facility] Work Phone: B-2 Glycoprotein (IGA)on Beta-2 Glyco 1 IgA <2.0 U/mL [facility] Work Phone: Comment on above: Interpretive Informa tion: Results equal to or greater than 20 U/mL = POSITIVE Results less than 20 U/mL = NEGATIVE B2 Glycoprotein I (IgM) Abon 10-24-2021 Beta-2 Glyco 1 IgM <1.5 U/mL [facility] Work Phone: Comment on above: Interpretive Informa tion: Results equal to or greater than 20 U/mL = POSITIVE Results less than 20 U/mL = NEGATIVE B2 Glycoprotein I Igg Abon 0 10-24-2021 Beta-2 Glyco 1 IgG <1.4 U/mL [employer] Work Phone: Comment on above: Interpretive Informa tion: Results equal to or greater than 20 U/mL = POSITIVE Results less than 20 U/mL = NEGATIVE Basic Metabolic Panelon 10-06 Anion gap [Moles/Vol] 8 mmol/L Normal 3-13 [facility] Comment on above: Performed By: #### C A19O, LUPUS #### The performing lab is in the report. #### NSEO #### [facility] #### HEMDF, LDH3, BMP3, MG3, PT, CEA2 #### [facility] [address] [place] [address] #### B2GPM, B2GPA, B2GPG #### [facility] [address] [place] [address] Calcium [Mass/Vol] 8.8 mg/dL Normal 8.4-10.4 [facility] Comment on above: Performed By: #### C A19O, LUPUS #### The performing lab is in the report. #### NSEO #### [facility] #### HEMDF, LDH3, BMP3, MG3, PT, CEA2 #### [facility] [address] [place] [address] #### B2GPM, B2GPA, B2GPG #### [address] CO2 [Moles/Vol] 25 mmol/L Normal 22-30 [facility] Comment on above: Performed By: #### C A19O, LUPUS #### The performing lab is in the report. #### NSEO #### [facility] #### HEMDF, LDH3, BMP3, MG3, PT, CEA2 #### [facility] [address] [place] [address] #### B2GPM, B2GPA, B2GPG #### [address] Creatinine [Mass/Vol] 0.74 mg/dL Normal 0.52-1.25 [facility] Comment on above: Performed By: #### C A19O, LUPUS #### The performing lab is in the report. #### NSEO #### [facility] #### HEMDF, LDH3, BMP3, MG3, PT, CEA2 #### [place] [address] [place] [address] #### B2GPM, B2GPA, B2GPG #### [address] eGFR OTHER > 90.0 Normal >60 [facility] [address] [place] [address] #### B2GPM, B2GPA, B2GPG #### [address] GFR/1.73 sq M.predicted among blacks MDRD (S/P/Bld) [Vol rate/Area] mL/min/{1.73_m2} Normal >60 [facility] Comment on above: Performed By: #### C Mary LouO, LUPUS #### The performing lab is in the report. #### NSEO #### [facility] #### HEMDF, LDH3, BMP3, MG3, PT, CEA2 #### [facility] [address] [place] [address] #### B2GPM, B2GPA, B2GPG #### [address] Glucose [Mass/Vol] 116 mg/dL High 70-100 [facility] Comment on above: Performed By: #### C A19O, LUPUS #### The performing lab is in the report. #### NSEO #### [facility] #### HEMDF, LDH3, BMP3, MG3, PT, CEA2 #### [facility] [address] [place] [address] #### B2GPM, B2GPA, B2GPG #### [address] Urea nitrogen [Mass/Vol] 19 mg/dL High 7-17 [facility] Comment on above: Performed By: #### C A19O, LUPUS #### The performing lab is in the report. #### NSEO #### [facility] #### HEMDF, LDH3, BMP3, MG3, PT, CEA2 #### [place] [address] [place] [address] #### B2GPM, B2GPA, B2GPG #### [address] Chloride [Moles/Vol] 107 mmol/L Normal 98-107 [facility] Comment on above: Performed By: #### C A19O, LUPUS #### The performing lab is in the report. #### NSEO #### [facility] #### HEMDF, LDH3, BMP3, MG3, PT, CEA2 #### [place] [address] [place] [address] #### B2GPM, B2GPA, B2GPG #### [address] Potassium [Moles/Vol] 3.9 mmol/L Normal 3.5-5.1 [facility] Comment on above: Performed By: #### C A19O, LUPUS #### The performing lab is in the report. #### NSEO #### [facility] #### HEMDF, LDH3, BMP3, MG3, PT, CEA2 #### [address] [place] [address] #### B2GPM, B2GPA, B2GPG #### [address] Sodium [Moles/Vol] 140 mmol/L Normal 135-145 [facility] Comment on above: Performed By: #### C A19O, LUPUS #### The performing lab is in the report. #### NSEO #### [facility] #### HEMDF, LDH3, BMP3, MG3, PT, CEA2 #### [place] [address] [place] [address] #### B2GPM, B2GPA, B2GPG #### [address] [address] Anion gap [Moles/Vol] 8 mmol/L 3 - 13 mmol/L [facility] Calcium [Mass/Vol] 8.8 mg/dL 8.4 - 10. 4 mg/dL [facility] Chloride [Moles/Vol] 107 mmol/L 98 - 10 7 mmol/L [facility] CO2 [Moles/Vol] 25 mmol/L 22 - 30 mmol/L [facility] Creatinine [Mass/Vol] 0.74 mg/dL 0.52 - 1.25 mg/dL [facility] EGFR IF NonAfrican Serbian >90.0 >60 mL/min [facility] Comment on above: [...] - 17 mg/dL [facility] Test Performed by [facility], [address] [place], [place], [place] [id number] [place] [address] LAB [facility] Beta-2 Glycoprotein I IgAon 06-20-2022 Beta-2 Glycoprotein I IgA < 2.0 Normal [facility] Comment on above: Result Comment: Inte rpretive Information: Results equal to or greater than 20 U/mL = POSITIVE Results less than 20 U/mL = NEGATIVE Performed By: #### C OVAG #### [facility] [address] [place] [address] Beta-2 Glycoprotein I IgGon 10-24-2021 Beta-2 Glycoprotein I IgG < 1.4 Normal [facility] Comment on above: Result Comment: Inte rpretive Information: Results equal to or greater than 20 U/mL = POSITIVE Results less than 20 U/mL = NEGATIVE Performed By: #### C OVAG #### [facility] [address] [place] [address] Beta-2 Glycoprotein I IgMon 10-24-2021 Beta-2 Glycoprotein I IgM < 1.5 Normal [facility] Comment on above: Result Comment: Inte rpretive Information: Results equal to or greater than 20 U/mL = POSITIVE Results less than 20 U/mL = NEGATIVE Performed By: #### C OVAG #### [facility] [address] [place] [address] No Panel Informationon 10-24 [facility] Test Performed by [facility], [address] [place] [id number] [place] [address] LAB [facility] Work Phone: PROTEIN C FUNCTIONALon 10-24 Interpretation and review of laboratory results Abnormal [facility] Protein C-Functional 185 % High 83 [...] reference intervals for this test in the [facility] Test Directory ([employer]). Performed by [facility]), [address] [place] [place] [address] www.[employer], Quiana Castro MD - Lab. Director Protein C, Functionalon 10-06 Protein C, Functional 185 % High 83-168 [facility] Comment on above: Result Comment: INTE [...] reference intervals for this test in the [facility] Test Directory ([employer]). Performed by [facility]), [address] [place] [place] [address] www.[employer], Quiana Castro MD - Lab. Director Performed By: #### P T #### [facility] [address] [place] [address] Protein S, Functionalon 06-2 Protein S, Functional 138 % Normal 66-143 [facility] Comment on above: INTERPRETIVE INFORMA TION: [...] reference intervals for this test in the [facility] Test Directory ([employer]). Performed by [facility]), [address] [place] [address] www.[employer], Quiana Castro MD - Lab. Director Result [...] reference intervals for this test in the [facility] Test Directory ([employer]). Performed by [facility]), [address] [facility],[place] [id number] www.[employer], Quiana Castro MD - Lab. Director Performed By: #### P T #### [facility] [address] [place] [address] Prothrombin Timeon INR 1.2 High 0.9-1.1 [facility] Comment on [...] HEMDF, LDH3, BMP3, MG3, PT, CEA2 #### [place] [address] [place] [address] #### B2GPM, B2GPA, B2GPG #### [address] [phone] PT Coag (PPP) [Time] 12.6 s High 9.0-12.0 [facility] Comment on above: Result Comment: . Performed By: #### C A19O, LUPUS #### The performing lab is in the report. #### NSEO #### [facility] #### HEMDF, LDH3, BMP3, MG3, PT, CEA2 #### [address] [place] [address] #### B2GPM, B2GPA, B2GPG #### [address] [address] Protime-INRon 10-24-2021 INR Coag (Bld) [Relative time] 1.2 {INR} High [facility] Comment on above: Recommended Anticoag ulant [...] Interpretation and review of laboratory results Abnormal [facility] PT Coag (PPP) [Time] 12.6 s High 9.0 - 12.0 s [facility] Comment on above: . Test Performed by [facility], [address] LAB [facility] Basic Metabolic Panelon 10-05 Anion gap [Moles/Vol] 10 mmol/L Normal 3-13 [facility] Comment on above: Performed By: #### C A19O, LUPUS #### The performing lab is in the report. #### NSEO #### [facility] #### HEMDF, LDH3, BMP3, MG3, PT, CEA2 #### [place] [address] [place] [address] #### B2GPM, B2GPA, B2GPG #### [address] [address] Calcium [Mass/Vol] 9.6 mg/dL Normal 8.4-10.4 [facility] Comment on above: Performed By: #### C A19O, LUPUS #### The performing lab is in the report. #### NSEO #### [facility] #### HEMDF, LDH3, BMP3, MG3, PT, CEA2 #### [facility] [address] [place] [address] #### B2GPM, B2GPA, B2GPG #### [address] [address] CO2 [Moles/Vol] 27 mmol/L Normal 22-30 [facility] Comment on above: Performed By: #### C A19O, LUPUS #### The performing lab is in the report. #### NSEO #### [facility] #### HEMDF, LDH3, BMP3, MG3, PT, CEA2 #### [address] [place] [address] #### B2GPM, B2GPA, B2GPG #### [address] Glucose [Mass/Vol] 109 mg/dL High 70-100 [facility] Comment on above: Performed By: #### C A19O, LUPUS #### The performing lab is in the report. #### NSEO #### [facility] #### HEMDF, LDH3, BMP3, MG3, PT, CEA2 #### [address] [place] [address] #### B2GPM, B2GPA, B2GPG #### [address] Urea nitrogen [Mass/Vol] 18 mg/dL High 7-17 [facility] Comment on above: Performed By: #### C A19O, LUPUS #### The performing lab is in the report. #### NSEO #### [facility] #### HEMDF, LDH3, BMP3, MG3, PT, CEA2 #### [address] [place] [address] #### B2GPM, B2GPA, B2GPG #### [address] Creatinine [Mass/Vol] 0.82 mg/dL Normal 0.52-1.25 [facility] Comment on above: Performed By: #### C A19O, LUPUS #### The performing lab is in the report. #### NSEO #### [facility] #### HEMDF, LDH3, BMP3, MG3, PT, CEA2 #### [address] [place] [address] #### B2GPM, B2GPA, B2GPG #### [address] GFR/1.73 sq M.predicted among blacks MDRD (S/P/Bld) [Vol rate/Area] mL/min/{1.73_m2} Normal >60 [facility] Comment on above: Performed By: #### C A19O, LUPUS #### The performing lab is in the report. #### NSEO #### [facility] #### HEMDF, LDH3, BMP3, MG3, PT, CEA2 #### [facility] [address] [place] [address] #### B2GPM, B2GPA, B2GPG #### [facility] [address] [place] [address] GFR/1.73 sq M.predicted among non-blacks MDRD (S/P/Bld) [...] #### [facility] [address] [place] [address] #### B2GPM, B2GPA, B2GPG #### [facility] [address] [place] [address] Chloride [Moles/Vol] 104 mmol/L Normal 98-107 [facility] Comment on above: Performed By: #### C A19O, LUPUS #### The performing lab is in the report. #### NSEO #### [facility] #### HEMDF, LDH3, BMP3, MG3, PT, CEA2 #### [place] [address] [place] [address] #### B2GPM, B2GPA, B2GPG #### [address] Potassium [Moles/Vol] 3.9 mmol/L Normal 3.5-5.1 [facility] Comment on above: Performed By: #### C A19O, LUPUS #### The performing lab is in the report. #### NSEO #### [facility] #### HEMDF, LDH3, BMP3, MG3, PT, CEA2 #### [place] [address] [place] [address] #### B2GPM, B2GPA, B2GPG #### [address] Sodium [Moles/Vol] 142 mmol/L Normal 135-145 [facility] Comment on above: Performed By: #### C A19O, LUPUS #### The performing lab is in the report. #### NSEO #### [facility] #### HEMDF, LDH3, BMP3, MG3, PT, CEA2 #### [place] [address] [place] [address] #### B2GPM, B2GPA, B2GPG #### [address] Anion gap [Moles/Vol] 10 mmol/L 3 - 13 mmol/L [facility] Work Phone: Calcium [Mass/Vol] 9.6 mg/dL 8.4 - 10. 4 mg/dL [facility] Work Phone: [phone] Chloride [Moles/Vol] 104 mmol/L 98 - 10 7 mmol/L [facility] Work Phone: [phone] CO2 [Moles/Vol] 27 mmol/L 22 - 30 mmol/L [facility] Work Phone: Creatinine [Mass/Vol] 0.82 mg/dL 0.52 - 1.25 mg/dL [facility] Work Phone: EGFR IF NonAfrican Serbian 89.9 mL/min >60 [facility] Work Phone: [phone] Comment on above: KDIGO guidelines pro [...] MDRD (S/P/Bld) [Vol rate/Area] mL/min/{1.73_m2} >60 mL/min [facility] Work Phone: [phone] Glucose [Mass/Vol] 109 mg/dL High 70 - 100 mg/dL [facility] Work Phone: [phone] Interpretation and review of laboratory results Abnormal [facility] Work Phone: [phone] Potassium [Moles/Vol] 3.9 mmol/L 3.5 - 5.1 mmol/L [facility] Work Phone: Sodium [Moles/Vol] 142 mmol/L 135 - 145 mmol/L [facility] Work Phone: Urea nitrogen (BldV) [Mass/Vol] 18 mg/dL High 7 - 17 mg/dL [facility] Work Phone: CBC with Auto Differentialon [...] (Bld) 3.9 % 1.0 - 6.0 % [facility] Work Phone: [phone] Granulocytes/100 WBC (Bld) 64.0 % 40.0 - 80.0 % [facility] Work Phone: [phone] Hematocrit (Bld) [Volume fraction] 35.1 % Low 40.0 - 52.0 % [facility] Work Phone: [phone] Hemoglobin (Bld) [Mass/Vol] 11.6 g/dL Low 13.0 - 18.0 g/dL [facility] Work Phone: [phone] Interpretation and review of laboratory results Abnormal [facility] Work Phone: [phone] Lymphocytes (Bld) [#/Vol] 2.6 10*3/uL 1.0 - 4.3 10*3/uL [facility] Work Phone: [phone] Lymphocytes/100 WBC (Bld) 25.0 % 20.0 - 40.0 % [facility] Work Phone: [phone] MCH (RBC) [Entitic mass] 28.4 pg 26.0 - 34.0 pg [facility] Work Phone: [phone] MCHC (RBC) [Mass/Vol] 33.1 % 32.0 - 36.0 % [facility] Work Phone: [phone] MCV (RBC) [Entitic vol] 85.9 fL 80.0 - 98.0 fL [facility] Work Phone: [phone] Monocytes (Bld) [#/Vol] [...] 450 10*3/uL High 140 - 440 10*3/uL [facility] Work Phone: [phone] RBC (Bld) [#/Vol] 4.08 10*6/uL Low 4.40 - 5.9 0 10*6/uL [facility] Work Phone: [phone] WBC (Bld) [#/Vol] 10.3 10*3/uL 3.6 - 10.7 10*3/uL [facility] Work Phone: [phone] Test Performed by [facility], [address] LAB [facility] Work Phone: [phone] CEAon 10-23-2021 CEA 0.8 ng/mL 0.0 - 3.0 ng/mL [facility] Work Phone: [phone] Test Performed by [facility], [address] LAB [facility] Work Phone: [phone] Carcinoembryonic Agon 2021 Carcinoembryonic Ag. 0.8 ng/mL Normal 0.0-3.0 [facility] Comment on above: Performed By: #### C A19O, LUPUS #### The performing lab is in the report. #### NSEO #### [facility] #### HEMDF, LDH3, BMP3, MG3, PT, CEA2 #### [facility] [address] [place] [address] #### B2GPM, B2GPA, B2GPG #### [address] Hemogram w/ Autodiffon 10-23 Abs Baso Cnt 0.1 10*3/uL Normal 0.0-0.2 [facility] Comment on above: Performed By: #### C A19O, LUPUS #### The performing lab is in the report. #### NSEO #### [facility] #### HEMDF, LDH3, BMP3, MG3, PT, CEA2 #### [facility] [address] [place], [place] #### B2GPM, B2GPA, B2GPG #### [address] Abs Neutrophile Cnt 6.6 10*3/uL Normal 1.8-7.0 [facility] Comment on above: Performed By: #### C A19O, LUPUS #### The performing lab is in the report. #### NSEO #### [facility] #### HEMDF, LDH3, BMP3, MG3, PT, CEA2 #### [facility] [address] [place], [place] #### B2GPM, B2GPA, B2GPG #### [address] Basophils/100 WBC (Bld) 1.1 % Normal 0.0-2.0 [facility] Comment on above: Performed By: #### C A19O, LUPUS #### The performing lab is in the report. #### NSEO #### [facility] #### HEMDF, LDH3, BMP3, MG3, PT, CEA2 #### [facility] [address] [place], [place] #### B2GPM, B2GPA, B2GPG #### [address] Eosinophils (Bld) [#/Vol] 0.4 10*3/uL Normal 0.0-0.5 [facility] Comment on above: Performed By: #### C A19O, LUPUS #### The performing lab is in the report. #### NSEO #### [facility] #### HEMDF, LDH3, BMP3, MG3, PT, CEA2 #### [facility] [address] [place] [address] #### B2GPM, B2GPA, B2GPG #### [address] [address] Eosinophils/100 WBC (Bld) 3.9 % Normal 1.0-6.0 [facility] Comment on above: Performed By: #### C A19O, LUPUS #### The performing lab is in the report. #### NSEO #### [facility] #### HEMDF, LDH3, BMP3, MG3, PT, CEA2 #### [facility] [address] [facility] [address] #### B2GPM, B2GPA, B2GPG #### [address] [address] Erythrocyte distribution width (RBC) [Ratio] 17.4 % High 11.5-14.5 [facility] Comment on above: Performed By: #### C A19O, LUPUS #### The performing lab is in the report. #### NSEO #### [facility] #### HEMDF, LDH3, BMP3, MG3, PT, CEA2 #### [facility] [address] [facility] [address] #### B2GPM, B2GPA, B2GPG #### [address] [address] Granulocytes/100 WBC (Bld) 64.0 % Normal 40.0-80.0 [facility] Comment on above: Performed By: #### C A19O, LUPUS #### The performing lab is in the report. #### NSEO #### [facility] #### HEMDF, LDH3, BMP3, MG3, PT, CEA2 #### [place] [address] [place] #### B2GPM, B2GPA, B2GPG #### [address] Hematocrit (Bld) [Volume fraction] 35.1 % Low 40.0-52.0 [facility] Comment on above: Performed By: #### C A19O, LUPUS #### The performing lab is in the report. #### NSEO #### [facility] #### HEMDF, LDH3, BMP3, MG3, PT, CEA2 #### [address] [place] #### B2GPM, B2GPA, B2GPG #### [address] Hemoglobin (Bld) [Mass/Vol] 11.6 g/dL Low 13.0-18.0 [facility] Comment on above: Performed By: #### C A19O, LUPUS #### The performing lab is in the report. #### NSEO #### [facility] #### HEMDF, LDH3, BMP3, MG3, PT, CEA2 #### [address] [place] #### B2GPM, B2GPA, B2GPG #### [address] Lymphocytes (Bld) [#/Vol] 2.6 10*3/uL Normal 1.0-4.3 [facility] Comment on above: Performed By: #### C A19O, LUPUS #### The performing lab is in the report. #### NSEO #### [facility] #### HEMDF, LDH3, BMP3, MG3, PT, CEA2 #### [address] [place] #### B2GPM, B2GPA, B2GPG #### [address] Lymphocytes/100 WBC (Bld) 25.0 % Normal 20.0-40.0 [facility] Comment on above: Performed By: #### C A19O, LUPUS #### The performing lab is in the report. #### NSEO #### [facility] #### HEMDF, LDH3, BMP3, MG3, PT, CEA2 #### [facility] [address] [place] [address] #### B2GPM, B2GPA, B2GPG #### [address] MCH (RBC) [Entitic mass] 28.4 pg Normal 26.0-34.0 [facility] Comment on above: Performed By: #### C A19O, LUPUS #### The performing lab is in the report. #### NSEO #### [facility] #### HEMDF, LDH3, BMP3, MG3, PT, CEA2 #### [facility] [address] [facility] [address] [place], [place] #### B2GPM, B2GPA, B2GPG #### [address] MCHC 33.1 % Normal 32.0-36.0 [facility] Comment on above: Performed By: #### C A19O, LUPUS #### The performing lab is in the report. #### NSEO #### [facility] #### HEMDF, LDH3, BMP3, MG3, PT, CEA2 #### [facility] [address] [facility] [address] [place], [place] #### B2GPM, B2GPA, B2GPG #### [address] MCV (RBC) [Entitic vol] 85.9 fL Normal 80.0-98.0 [facility] Comment on above: Performed By: #### C A19O, LUPUS #### The performing lab is in the report. #### NSEO #### [facility] #### HEMDF, LDH3, BMP3, MG3, PT, CEA2 #### [place] [address] [place] #### B2GPM, B2GPA, B2GPG #### [address] Monocytes (Bld) [#/Vol] 0.6 10*3/uL Normal 0.0-0.8 [facility] Comment on above: Performed By: #### C A19O, LUPUS #### The performing lab is in the report. #### NSEO #### [facility] #### HEMDF, LDH3, BMP3, MG3, PT, CEA2 #### [address] [place] #### B2GPM, B2GPA, B2GPG #### [address] Monocytes/100 WBC (Bld) 6.0 % Normal 2.0-10.0 [facility] Comment on above: Performed By: #### C A19O, LUPUS #### The performing lab is in the report. #### NSEO #### [facility] #### HEMDF, LDH3, BMP3, MG3, PT, CEA2 #### [address] [place] #### B2GPM, B2GPA, B2GPG #### [address] Platelet mean volume (Bld) [Entitic vol] 8.1 fL Normal 7.4-12.4 [facility] Comment on above: Result Comment: MPV is a calculated measurement using platelet volume ratio. Performed By: #### C A19O, LUPUS #### The performing lab is in the report. #### NSEO #### [facility] #### HEMDF, LDH3, BMP3, MG3, PT, CEA2 #### [place] [address] [place] #### B2GPM, B2GPA, B2GPG #### [place] [address] [place] Platelets (Bld) [#/Vol] 450 10*3/uL High 140-440 [facility] Comment on above: Performed By: #### C A19O, LUPUS #### The performing lab is in the report. #### NSEO #### [facility] #### HEMDF, LDH3, BMP3, MG3, PT, CEA2 #### [facility] [address] [place], [place] #### B2GPM, B2GPA, B2GPG #### [address] RBC (Bld) [#/Vol] 4.08 10*6/uL Low 4.40-5.90 [facility] Comment on above: Performed By: #### C A19O, LUPUS #### The performing lab is in the report. #### NSEO #### [facility] #### HEMDF, LDH3, BMP3, MG3, PT, CEA2 #### [facility] [address] [place], [place] #### B2GPM, B2GPA, B2GPG #### [address] WBC (Bld) [#/Vol] 10.3 10*3/uL Normal 3.6-10.7 [facility] Comment on above: Performed By: #### C A19O, LUPUS #### The performing lab is in the report. #### NSEO #### [facility] #### HEMDF, LDH3, BMP3, MG3, PT, CEA2 #### [facility] [address] [place] [address] #### B2GPM, B2GPA, B2GPG #### [address] LDHon 10-23-2021 LDH 136 U/L Normal 120-246 [facility] Comment on above: Performed By: #### C A19O, LUPUS #### The performing lab is in the report. #### NSEO #### [facility] #### HEMDF, LDH3, BMP3, MG3, PT, CEA2 #### [facility] [address] [place] [address] #### B2GPM, B2GPA, B2GPG #### [facility] [address] [place] [address] Lactate Dehydrogenaseon - LD 136 U/L 120 - 246 U/L [facility] Work Phone: MRI ABDOMEN WO CONTRASTon Patient Name: ANDREW SIFUENTES [facility] ACCESSION EXAM DATE/TIME PROCEDURE ORDERING PROVIDER [id number] 10/23/2021 11:08 EDT MRI Abdomen w/o Contrast DONOVAN SRIVASTAVAW CPT code 86430 Reason For Exam (MRI Abdomen w/o Contrast) [...] Imaging ACCESSION EXAM DATE/TIME PROCEDURE ORDERING PROVIDER [id number] 10/23/2021 11:08 EDT MRI Abdomen w/o Contrast WING SRIVASTAVA CPT code 24782 Reason For Exam (MRI Abdomen w/o Contrast) [...] CONTRASTOrder ed By: Unknown Result on 10-23-2021 [facility]/o Contraston 0 10-23-2021 MRI Abdomen w/o Contrast Patient Name: [id number] Imaging ACCESSION EXAM DATE/TIME PROCEDURE ORDERING PROVIDER [id number] 10/23/2021 11:08 EDT MRI Abdomen w/o Contrast WING SRIVASTAVA CPT code 55817 Reason For Exam (MRI Abdomen w/o Contrast) [...] 10-23-2021 Magnesium [Mass/Vol] 2.1 mg/dL Normal 1.6-2.3 [facility] Comment on above: Performed By: #### C A19O, LUPUS #### The performing lab is in the report. #### NSEO #### [facility] #### HEMDF, LDH3, BMP3, MG3, PT, CEA2 #### [facility] [address] [place] [address] #### B2GPM, B2GPA, B2GPG #### [address] [address] Magnesium [Mass/Vol] 2.1 mg/dL 1.6 - 2 .3 mg/dL [facility] Work Phone: No Panel Informationon 10-23 Test Performed by [facility], [address] [place], [place] [id number] [place] [address] LAB [facility] Work Phone: Prothrombin Timeon 2 INR [...] HEMDF, LDH3, BMP3, MG3, PT, CEA2 #### [address] [place] [address] #### B2GPM, B2GPA, B2GPG #### [address] [address] PT Coag (PPP) [Time] 12.2 s High 9.0-12.0 [facility] Comment on above: Result Comment: . Performed By: #### C A19O, LUPUS #### The performing lab is in the report. #### NSEO #### [facility] #### HEMDF, LDH3, BMP3, MG3, PT, CEA2 #### [address] [place] [address] #### B2GPM, B2GPA, B2GPG #### [address] [id number] Protime-INRon 10-23-2021 INR Coag (Bld) [Relative time] 1.1 {INR} [facility] Work Phone: Comment on above: Recommended [...] Interpretation and review of laboratory results Abnormal [facility] Work Phone: PT Coag (PPP) [Time] 12.2 s High 9.0 - 12.0 s [facility] Work Phone: Comment on above: . Test Performed by [facility], [address] [place] [address] [facility] Work Phone: Basic Metabolic Panelon 10-05-2021 Calcium [Mass/Vol] 8.9 mg/dL Normal 8.4-10.4 [facility] Comment on above: Performed By: #### P T #### [place] [facility] [address] [place] [address] Glucose [Mass/Vol] 110 mg/dL High 70-100 [facility] Comment on above: Performed By: #### P T #### [facility] [address] [place] [address] Urea nitrogen [Mass/Vol] 14 mg/dL Normal 7-17 [facility] Comment on above: Performed By: #### P T #### [facility] [address] [place] [address] Anion gap [Moles/Vol] 7 mmol/L Normal 3-13 [facility] Comment on above: Performed By: #### P T #### [facility] [address] [place] [address] CO2 [Moles/Vol] 26 mmol/L Normal 22-30 [facility] Comment on above: Performed By: #### P T #### [facility] [address] [place] [address] Creatinine [Mass/Vol] 0.71 mg/dL Normal 0.52-1.25 [facility] Comment on above: Performed By: #### P T #### [facility] [address] [place] [address] eGFR OTHER > 90.0 Normal >60 [facility] [address] [place] [address] GFR/1.73 sq M.predicted among blacks MDRD (S/P/Bld) [Vol rate/Area] mL/min/{1.73_m2} Normal >60 [facility] Comment on above: Performed By: #### P T #### [facility] [address] [place] [address] Potassium [Moles/Vol] 3.8 mmol/L Normal 3.5-5.1 [facility] Comment on above: Performed By: #### P T #### [facility] [address] [place] [address] Chloride [Moles/Vol] 106 mmol/L Normal 98-107 [facility] Comment on above: Performed By: #### P T #### [facility] [address] [place] [address] Sodium [Moles/Vol] 139 mmol/L Normal 135-145 [facility] Comment on above: Performed By: #### P T #### [place] [address] [place] [address] Anion gap [Moles/Vol] 7 mmol/L 3 - 13 mmol/L [facility] Calcium [Mass/Vol] 8.9 mg/dL 8.4 - 10. 4 mg/dL [facility] Chloride [Moles/Vol] 106 mmol/L 98 - 10 7 mmol/L [facility] CO2 [Moles/Vol] 26 mmol/L 22 - 30 mmol/L [facility] Creatinine [Mass/Vol] 0.71 mg/dL 0.52 - 1.25 mg/dL [facility] EGFR IF NonAfrican Serbian >90.0 >60 mL/min [facility] Comment on above: [...] - 10.7 10*3/uL [facility] Test Performed by [facility], [address] [place], [place] [id number] [place] [address] [facility] [address] [facility] Pelvis Wo Umair johnston 10-22-2021 Patient Name: ANDREW SIFUENTES Computed Tomography ACCESSION EXAM DATE/TIME PROCEDURE ORDERING PROVIDER [id number] 10/22/2021 13:[address] Abdomen/Pelvis (No WING SRIVASTAVA PO, No IV) CPT code 22237 Reason For Exam (CT Abdomen/Pelvis (No PO, [...] HARLAN Transcribed Date and Time: 10/22/2021 2:37 [facility] RAD Humphrey Melton MD - 10/22/2021 Patient Name: ANDREW SIFUENTES Computed Tomography ACCESSION EXAM DATE/TIME PROCEDURE ORDERING PROVIDER [id number] 10/22/2021 13:[address] Abdomen/Pelvis (No SRIVASTAVA, WING PO, No IV) CPT code 38756 Reason For Exam (CT Abdomen/Pelvis (No PO, [...] Tomography ACCESSION EXAM DATE/TIME PROCEDURE ORDERING PROVIDER [id number] 10/22/2021 13:[address] Abdomen/Pelvis (No SRIVASTAVA, WING PO, No IV) CPT code 50894 Reason For Exam (CT Abdomen/Pelvis (No PO, [...] Center [address] [place] [address] Abs Neutrophile Cnt 6.0 10*3/uL Normal 1.8-7.0 [facility] Comment on above: Performed By: #### P T #### [facility] [address] [place] [address] Basophils/100 WBC (Bld) 1.0 % Normal 0.0-2.0 [facility] Comment on above: Performed By: #### P T #### [facility] [address] [place] [address] Eosinophils (Bld) [#/Vol] 0.3 10*3/uL Normal 0.0-0.5 [facility] Comment on above: Performed By: #### P T #### [facility] [address] [place] [address] Eosinophils/100 WBC (Bld) 3.0 % Normal 1.0-6.0 [facility] Comment on above: Performed By: #### P T #### [facility] [address] [place] [address] Erythrocyte distribution width (RBC) [Ratio] 17.1 % High 11.5-14.5 [facility] Comment on above: Performed By: #### P T #### [facility] [address] [place] [address] Granulocytes/100 WBC (Bld) 64.1 % Normal 40.0-80.0 [facility] Comment on above: Performed By: #### P T #### [facility] [address] [place] [address] Hematocrit (Bld) [Volume fraction] 33.4 % Low 40.0-52.0 [facility] Comment on above: Performed By: #### P T #### [facility] [address] [place] [address] Hemoglobin (Bld) [Mass/Vol] 10.9 g/dL Low 13.0-18.0 [facility] Comment on above: Performed By: #### P T #### [facility] [address] [place] [address] Lymphocytes (Bld) [#/Vol] 2.5 10*3/uL Normal 1.0-4.3 [facility] Comment on above: Performed By: #### P T #### [facility] [address] [place] [address] Lymphocytes/100 WBC (Bld) 26.3 % Normal 20.0-40.0 [facility] Comment on above: Performed By: #### P T #### [place] [address] [place] [address] MCH (RBC) [Entitic mass] 28.2 pg Normal 26.0-34.0 [facility] Comment on above: Performed By: #### P T #### [place] [address] [place] [address] MCHC 32.7 % Normal 32.0-36.0 [facility] Comment on above: Performed By: #### P T #### [facility] [address] [place] [address] MCV (RBC) [Entitic vol] 86.3 fL Normal 80.0-98.0 [facility] Comment on above: Performed By: #### P T #### [place] [address] [place] [address] Monocytes (Bld) [#/Vol] 0.5 10*3/uL Normal 0.0-0.8 [facility] Comment on above: Performed By: #### P T #### [facility] [address] [place] [address] Monocytes/100 WBC (Bld) 5.6 % Normal 2.0-10.0 [facility] Comment on above: Performed By: #### P T #### [place] [address] [place] [address] Platelet mean volume (Bld) [Entitic vol] 7.6 fL Normal 7.4-12.4 [facility] Comment on above: Result Comment: MPV is a calculated measurement using platelet volume ratio. Performed By: #### P T #### [place] [address] [place] [address] Platelets (Bld) [#/Vol] 369 10*3/uL Normal 140-440 [facility] Comment on above: Performed By: #### P T #### [facility] [address] [place] [address] RBC (Bld) [#/Vol] 3.87 10*6/uL Low 4.40-5.90 [facility] Comment on above: Performed By: #### P T #### [facility] [address] [place] [address] WBC (Bld) [#/Vol] 9.4 10*3/uL Normal 3.6-10.7 [facility] Comment on above: Performed By: #### P T #### [facility] [address] [place] [address] Magnesiumon 10-22-2021 Magnesium [Mass/Vol] 2.0 mg/dL Normal 1.6-2.3 [facility] Comment on above: Performed By: #### P T #### [facility] [address] [place] [address] Magnesium [Mass/Vol] 2.0 mg/dL 1.6 - 2 .3 mg/dL [facility] No Panel Informationon 10-22 Radiology Study observation (narrative) [facility] Work Phone: Test Performed by [facility], [address] [place], [place] [address] [facility] Prothrombin Timeon 2 INR 1.1 Normal [...] [facility] [address] [place] [address] #### B2GPM, B2GPA, B2GPG #### [facility] [address] [place] [address] PT Coag (PPP) [Time] 11.8 s Normal 9.0-12.0 [facility] Comment on above: Result Comment: . Performed By: #### C A19O, LUPUS #### The performing lab is in the report. #### NSEO #### [facility] #### HEMDF, LDH3, BMP3, MG3, PT, CEA2 #### [facility] [address] [place] [address] #### B2GPM, B2GPA, B2GPG #### [facility] [address] [place] [address] Protime-INRon 10-22-2021 INR Coag (Bld) [Relative time] 1.1 {INR} [facility] Work Phone: Comment on above: Recommended [...] s 9.0 - 12.0 s [facility] Work Phone: Comment on above: . Test Performed by [facility], [address] [place], [place] [address] [facility] Work Phone: VL Ankle Art Brachial Indice s Extremity Bilateralon 10-22-2021 [facility] Ankle Brachial Index Report Patient DO GurpreetB: 1950 Study 10/21/2021 Name: Andrew Gonzalez (71yrs) Date: Age: 71 Account: [id number] Gender: M Loc: 444W BP: Ordering Physician: Shruthi Malik Commissioned Security Officer: Rody Cross RDMS, RVT Interpreting Physician: Carina Call Location: [facility] Indications: Foot wounds. Originally ordered as a full PVR. Ordering PLANT FLOOR AUTOMATION MANAGER had to modify the order to [...] supine position. Images were obtained using a imageloops vascular ultrasound machine. Arterial pressure indices: + [...] by Carina Call 10/22/2021 13:21 [facility] CARDIOLOGY Carina Call MD - 10/22/2021 [facility] Ankle Brachial Index Report Patient RADHA Sifuentes: 1950 Study 10/21/2021 Name: Andrew Gonzalez (71yrs) Date: Age: 71 Account: [id number] Gender: M Loc: 444W BP: Ordering Physician: Shruthi Malik Commissioned Security Officer: Rody Cross RDMS, RVT Interpreting Physician: Carina Call Location: [facility] Indications: Foot wounds. Originally ordered as a full PVR. Ordering PLANT FLOOR AUTOMATION MANAGER had to modify the order to [...] supine position. Images were obtained using a imageloops vascular ultrasound machine. Arterial pressure indices: + [...] electronically signed by Carina Call 10/22/2021 13:21 [facility] Work Phone: [facility] Work Phone: Basic Metabolic Panelon 10-05 Calcium [Mass/Vol] 9.1 mg/dL Normal 8.4-10.4 [facility] Comment on above: Performed By: #### C OVAG #### [facility] [employer] [address] [place] [address] Anion gap [Moles/Vol] 6 mmol/L Normal 3-13 [facility] Comment on above: Performed By: #### C OVAG #### [facility] [address] [place] [address] CO2 [Moles/Vol] 29 mmol/L Normal 22-30 [facility] Comment on above: Performed By: #### C OVAG #### [facility] [address] [place] [address] Creatinine [Mass/Vol] 0.90 mg/dL Normal 0.52-1.25 [facility] Comment on above: Performed By: #### C OVAG #### [facility] [address] [place] [address] GFR/1.73 sq M.predicted among blacks MDRD (S/P/Bld) [Vol rate/Area] mL/min/{1.73_m2} Normal >60 [facility] Comment on above: Performed By: #### C OVAG #### [facility] [address] [place] [address] GFR/1.73 sq M.predicted among non-blacks MDRD (S/P/Bld) [...] [facility] [address] [place] [address] Glucose [Mass/Vol] 106 mg/dL High 70-100 [facility] Comment on above: Performed By: #### C OVAG #### [facility] [address] [place] [address] Urea nitrogen [Mass/Vol] 18 mg/dL High 7-17 [facility] Comment on above: Performed By: #### C OVAG #### [facility] [address] [place] [address] Chloride [Moles/Vol] 105 mmol/L Normal 98-107 [facility] Comment on above: Performed By: #### C OVAG #### [facility] [address] [place] [address] Potassium [Moles/Vol] 4.3 mmol/L Normal 3.5-5.1 [facility] Comment on above: Performed By: #### C OVAG #### [facility] [address] [place] [address] Sodium [Moles/Vol] 139 mmol/L Normal 135-145 [facility] Comment on above: Performed By: #### C OVAG #### [facility] [address] [place] [address] Anion gap [Moles/Vol] 6 mmol/L 3 - 13 mmol/L [facility] Calcium [Mass/Vol] 9.1 mg/dL 8.4 - 10. 4 mg/dL [facility] Chloride [Moles/Vol] 105 mmol/L 98 - 10 7 mmol/L [facility] CO2 [Moles/Vol] 29 mmol/L 22 - 30 mmol/L [facility] Creatinine [Mass/Vol] 0.9 mg/dL 0.52 - 1.25 mg/dL [facility] EGFR IF NonAfrican Serbian 86.6 mL/min >60 [facility] Comment on above: KDIGO guidelines pro [...] - 17 mg/dL [facility] Test Performed by [facility], [address] [place], [place], [place] [id number] [place] [address] LAB [facility] C-Reactive Proteinon 022 CRP [Mass/Vol] 33.5 mg/L High 0.0-9.9 [facility] Comment on above: Result Comment: . Performed By: #### P T #### [facility] [address] [place] [address] CRP [Mass/Vol] 33.5 mg/L High 0.0 - 9.9 mg/L [facility] Comment on above: . Interpretation and review of laboratory results Abnormal [facility] Test Performed by [facility], [address] [place], [address] LAB [facility] CR Calcaneus 2+ Views Lefton 10-21-2021 CR Calcaneus 2+ Views Left Patient Name: [id number] Diagnostic Radiology ACCESSION EXAM DATE/TIME PROCEDURE ORDERING PROVIDER [id number] 10/21/2021 15:30 EDT CR Calcaneus 2+ Views [id number] -SHRUTHI MALIK Left CPT code 04558 Reason For Exam (CR Calcaneus 2+ Views [...] Radiology ACCESSION EXAM DATE/TIME PROCEDURE ORDERING PROVIDER [id number] 10/21/2021 08:16 EDT CR Chest 1 View Frontal [id number] MAY BOGGS CPT code 30677 Reason For Exam (CR Chest 1 View [...] [facility] [address] [place] [address] D-Dimer, Quantitativeon 10-05 D-Dimer, Quant 1.51 mg/L High <0.19 - 0.50 [facility] Comment on above: [facility] D-Dimer va lues of <0.50 mg/L FEU can be used in combination with a pre-test probability model (e.g. Well's) to exclude pulmonary embolism (PE) disease, as well as an aid in the diagnosis of deep vein thrombosis (DVT). Interpretation and review of laboratory results Abnormal [facility] Test Performed by [facility], [address] [place], [place], [place] [address] [facility] ED Provider Noteon 2 ED Provider [...] ? Kidney stone ? Neuropathy ? [employer]PER[employer] (ventriculoperitoneal) shunt status SURGICAL HISTORY Past Surgical [...] and Family: Not on file ? Attends [employer] Services: Not on file ? Active Member [...] LUNGS: Respirations (more content not included)... Normal [facility] Hemogramon 10-21-2021 Erythrocyte distribution width (RBC) [Ratio] 17.3 % High 11.5-14.5 [facility] Comment on above: Performed By: #### C OVAG #### [facility] [address] [place] [address] Hematocrit (Bld) [Volume fraction] 33.6 % Low 40.0-52.0 [facility] Comment on above: Performed By: #### C OVAG #### [facility] [address] [place] [address] Hemoglobin (Bld) [Mass/Vol] 10.9 g/dL Low 13.0-18.0 [facility] Comment on above: Performed By: #### C OVAG #### [facility] [address] [place] [address] MCH (RBC) [Entitic mass] 27.8 pg Normal 26.0-34.0 [facility] Comment on above: Performed By: #### C OVAG #### [facility] [address] [place] [address] MCHC 32.5 % Normal 32.0-36.0 [facility] Comment on above: Performed By: #### C OVAG #### [facility] [address] [place] [address] MCV (RBC) [Entitic vol] 85.6 fL Normal 80.0-98.0 [facility] Comment on above: Performed By: #### C OVAG #### [facility] [address] [place] [address] Platelet mean volume (Bld) [Entitic vol] 7.7 fL Normal 7.4-12.4 [facility] Comment on above: Result Comment: MPV is a calculated measurement using platelet volume ratio. Performed By: #### C OVAG #### [facility] [address] [place] [address] Platelets (Bld) [#/Vol] 404 10*3/uL Normal 140-440 [facility] Comment on above: Performed By: #### C OVAG #### [facility] [address] [place] [address] RBC (Bld) [#/Vol] 3.93 10*6/uL Low 4.40-5.90 [facility] Comment on above: Performed By: #### C OVAG #### [facility] [address] [place] [address] WBC (Bld) [#/Vol] 11.6 10*3/uL High 3.6-10.7 [facility] Comment on above: Performed By: #### C OVAG #### [facility] [address] [place] [address] Hemogram (CBC)on 10-21-2021 Hematocrit (Bld) [Volume fraction] 33.6 % Low 40.0 - 52.0 % [facility] Hemoglobin (Bld) [Mass/Vol] 10.9 g/dL Low 13.0 - 18.0 g/dL [facility] Interpretation and review of laboratory results [...] vol] 7.7 fL 7.4 - 12.4 fL [facility] Comment on above: MPV is a calculated measurement using platelet volume ratio. Platelets (Bld) [#/Vol] 404 10*3/uL 140 - 440 10*3/uL [facility] RBC (Bld) [#/Vol] 3.93 10*6/uL Low 4.40 - 5.9 0 10*6/uL [facility] WBC (Bld) [#/Vol] 11.6 10*3/uL High 3.6 - 10.7 10*3/uL [facility] Test Performed by [facility], [address] [place], [place] [address] [facility] LUNG VENT/PERFUSION (VQ)o n 10-21-2021 Patient Name: ANDREW SIFUENTES Nuclear Medicine ACCESSION EXAM DATE/TIME PROCEDURE ORDERING PROVIDER [id number] 10/21/2021 07:55 EDT NM Pulmonary Perfusion [id number] -MAY CASH w/ Vent Aerosol CPT code 41329 A9567 Reason For Exam (NM Pulmonary Perfusion [...] JOHN Transcribed Date and Time: 10/21/2021 8:49 [facility] Henry Harvey MD - 10/21/2021 Patient Name: ANDREW SIFUENTES Nuclear Medicine ACCESSION EXAM DATE/TIME PROCEDURE ORDERING PROVIDER [id number] 10/21/2021 07:55 EDT NM Pulmonary Perfusion [id number] -AMY CASH w/ Vent Aerosol CPT code 62706 A9567 Reason For Exam (NM Pulmonary Perfusion [...] JOHN Transcribed Date and Time: 10/21/2021 8:49 [facility] Work Phone: NM LUNG VENT/PERFUSION (VQ)O rdered By: Henry Harvey on 10-21-2021 [facility] Work Phone: NM Pulmonary Perfusion w/ Ve nt Aerosol or Gason 10-21-2021 NM Pulmonary Perfusion w/ Vent Aerosol or Gas Patient Name: ANDREW SIFUENTES Nuclear Medicine ACCESSION EXAM DATE/TIME PROCEDURE ORDERING PROVIDER [id number] 10/21/2021 07:55 EDT NM Pulmonary Perfusion [id number] MAY BOGGS w/ Vent Aerosol CPT code 36964 A9567 Reason For Exam (NM Pulmonary Perfusion [...] Transcribed Date and Time: 10/21/2021 8:49 Normal [facility] No Panel Informationon 10-21 Radiology Study observation (narrative) [facility] Work Phone: Prothrombin Timeon 2 INR [...] [facility] [address] [place] [address] PT Coag (PPP) [Time] 11.5 s Normal 9.0-12.0 [facility] Comment on above: Result Comment: . Performed By: #### C OVAG #### [facility] [address] [place] [address] Protime-INRon 10-21-2021 INR Coag (Bld) [Relative time] 1.1 {INR} [facility] Comment on above: Recommended Anticoag ulant [...] s 9.0 - 12.0 s [facility] Comment on above: . Test Performed by [facility], [address] LAB [facility] Retic Count(%)on 10-21-2021 Retic Count(%) 1.6 Normal [facility] Comment on above: Result Comment: [place] < 5% Adults 0.5 - 1.5% Performed By: #### P T #### [facility] [address] [place] [address] Reticulocyteson 10-21-[address] Pct 1.6 [facility] Comment on above: [place] < 5% Adults 0.5 - 1.5% Test Performed by [facility], [address] LAB [facility] Sed Rateon 10-21-2021 Sed Rate 63 mm/h High 0-10 [facility] Comment on above: Performed By: #### P T #### [facility] [address] [place] [address] Sedimentation Rateon 022 Interpretation and review of laboratory results Abnormal [facility] Sed Rate 63 mm/h High 0 - 10 mm/h [facility] Test Performed by [facility], [address] [place], [place], [place] [address] [facility] VL CARMELLA Upr/L Extremity Art 1 -2 Levelson 10-21-2021 VL CARMELLA Upr/L Extremity Art 1-2 Levels Patient Name: ANDREW SIFUENTES Ultrasound ACCESSION EXAM DATE/TIME PROCEDURE ORDERING PROVIDER [id number] 10/21/2021 16:12 EDT VL Upr/L Extremity Art [id number] -SHRUTHI MALIK 1-2 Levels CPT code 65976 Reason For Exam (VL Upr/L Extremity Art 1-2 Levels) both lower legs CARMELLA for both feet wounds. Report [facility] Ankle Brachial Index Report Patient Gurpreet : 1950 Study 10/21/2021 Name: Andrew Gonzalez (71yrs) Date: Age: 71 Account: [id number] Gender: M Loc: 444W BP: Ordering Physician: Shruthi Malik Commissioned Security Officer: Rody Cross RDMS, RVT Interpreting Physician: Carina Call Location: [facility] Indications: Foot wounds. Originally ordered as a full PVR. Ordering PLANT FLOOR AUTOMATION MANAGER had to modify the order to [...] supine position. Images were obtained using a imageloops vascular ultrasound machine. Arterial pressure indices: + [...] CARINA HENNESSY Cardiovascular ACCESSION EXAM DATE/TIME PROCEDURE [id number] 10/21/2021 16:12 EDT VL Upr/L Extremity Art 1-2 Levels CPT code 92818 Reason For Exam (VL Upr/L Extremity Art 1-2 Levels) both lower legs CARMELLA for both feet wounds. Report [facility] Ankle Brachial Index Report Patient DO GurpreetB: 1950 Study 10/21/2021 Name: Andrew Gonzalez (71yrs) Date: Age: 71 Account: [id number] Cardiovascular Report Gender: M Loc: 444W BP: Ordering Physician: Shruthi Malik Commissioned Security Officer: Rody Cross RDMS, RVT Interpreting Physician: Carina Call Location: [facility] Indications: Foot wounds. Originally ordered as a full PVR. Ordering PLANT FLOOR AUTOMATION MANAGER had to modify the order to [...] in th (more content not included)... Normal [facility] VL LOWER EXTREMITY BILATERAL VENOUS DUPLEXon 10-21-2021 [facility] Lower Extremity Venous Duplex Report Patient DO GurpreetB: 1950 Study 10/21/2021 Name: Andrew Gonzalez (71yrs) Date: Age: 71 Account: [id number] Gender: M Loc: 444 BP: Ordering Physician: May Cash Commissioned Security Officer: Rody Cross RDMS, RVT Interpreting Physician: Carina Call Location: [facility] Indications: Bilateral lower leg edema. [...] supine position. Images were obtained using a imageloops vascular ultrasound machine. Venous flow and imaging: [...] --------+ + (more content not included)... [facility] CARDIOLOGY Carina Call MD - 10/21/2021 [facility] Lower Extremity Venous Duplex Report Patient DO GurpreetB: 1950 Study 10/21/2021 Name: Andrew Gonzalez (71yrs) Date: Age: 71 Account: [id number] Gender: M Loc: 444 BP: Ordering Physician: May Cash Commissioned Security Officer: Rody Cross RDMS, RVT Interpreting Physician: Carina Call Location: [facility] Indications: Bilateral lower leg edema. [...] supine position. Images were obtained using a imageloops vascular ultrasound machine. Venous flow and imaging: [...] + + +----- (more content not included)... [employer] Work Phone: VL LOWER EXTREMITY BILATERAL VENOUS DUPLEXOrdered By: Carina Call on 10-21-2021 [employer] Work Phone: VL Venous Duplex US Lower Ex t Bilateralon 10-21-2021 VL Venous Duplex US Lower Ext Bilateral Patient Name: ANDREW SIFUENTES Ultrasound ACCESSION EXAM DATE/TIME PROCEDURE ORDERING PROVIDER [id number] 10/21/2021 09:53 EDT VL Venous Duplex US [id number] -MAY CASH Lower Ext Bilateral CPT code 52633 Reason For Exam (VL Venous Duplex US Lower Ext Bilateral) bilateral sqwelling redness Report [facility] Lower Extremity Venous Duplex Report Patient DO GurpreetB: 1950 Study 10/21/2021 Name: Andrew Gonzalez (71yrs) Date: Age: 71 Account: [id number] Gender: M Loc: 444 BP: Ordering Physician: May Cash Commissioned Security Officer: Rody Cross RDMS, RVT Interpreting Physician: Carina Call Location: [facility] Indications: Bilateral lower leg edema. [...] supine position. Images were obtained using a imageloops vascular ultrasound machine. Venous flow and imaging: [...] + + (more content not included)... [facility] CALCANEUS LEFT (MIN 2 VIE WS)on 10-21-2021 Patient Name: ANDREW SIFUENTES Diagnostic Radiology ACCESSION EXAM DATE/TIME PROCEDURE ORDERING PROVIDER [id number] 10/21/2021 15:30 EDT CR Calcaneus 2+ Views [id number] -SHRUTHI MALIK Left CPT code 54602 Reason For Exam (CR Calcaneus 2+ Views [...] [id number] Diagnostic Radiology ACCESSION EXAM DATE/TIME PROCEDURE ORDERING PROVIDER [id number] 10/21/2021 15:30 EDT CR Calcaneus 2+ Views [id number] -SHRUTHI MALIK Left CPT code 95534 Reason For Exam (CR Calcaneus 2+ Views [...] Radiology ACCESSION EXAM DATE/TIME PROCEDURE ORDERING PROVIDER [id number] 10/21/2021 08:16 EDT CR Chest 1 View Frontal [id number] FOSTER CPT code 48851 Reason For Exam (CR Chest 1 View [...] OSAMA Transcribed Date and Time: 10/21/2021 8:33 [facility] Venus Loyd MD - 10/21/2021 Patient Name: ANDREW SIFUENTES Diagnostic Radiology ACCESSION EXAM DATE/TIME PROCEDURE ORDERING PROVIDER [id number] 10/21/2021 08:16 EDT CR Chest 1 View Frontal [id number] CONTI CPT code 79184 Reason For Exam (CR Chest 1 View [...] RAMOS Transcribed Date and Time: 10/21/2021 8:33 [facility]: XR Chest 1 VWOrdered By: Natalie Loyd on 10-21-2021 [facility] Work Phone: Basophil percentageon 2021 Chloride [Moles/Vol] 108 mmol/L 98-107 [facility] Work Phone: Glucose [Mass/Vol] 93 mg/dL 74-106 [facility] Work Phone: Potassium [Moles/Vol] 3.9 mmol/L 3.5-5.1 [facility] Work Phone: Sodium [Moles/Vol] 140 mmol/L 136-145 [facility] Work Phone: WBC (Bld) [#/Vol] 8.7 10*3/uL 4.4-11.0 [facility] Work Phone: Blood erythrocytes count (nu mber/volume)on 10-20-2021 RBC (Bld) [#/Vol] 3.63 10*6/uL 4.6-6.2 [facility] Work Phone: Blood hemoglobin measurement [...] Hematocrit (Bld) [Volume fraction] 32.7 % 40-54 [facility] Work Phone: Laboratory [...] 10-20-2021 MCHC (RBC) [Mass/Vol] 30.9 g/dL 32-36 [facility] Work Phone: No Panel Informationon 10-20 Estimated [...] (mass/volume)on 10-20-2021 Calcium [Mass/Vol] 9.1 mg/dL 8.5-10.1 [facility] Work Phone: Serum or plasma creatinine m easurement (mass/volume)on 10-20-2021 Creatinine [Mass/Vol] 0.75 mg/dL 0.70-1.30 [facility] Work Phone: Comment on above: The validity [...] Phone: CNPNon 10-17-2021 CNPN Normal [facility] Absolute lymphocyte counton 09-19-2021 Lymphocytes Auto (Unsp spec) [#/Vol] 1.74 10*3/uL 0.83-4.51 [facility] Work Phone: Basophil percentageon 2021 Basophils/100 WBC (Bld) 0.6 % 0-1 [facility] Work Phone: Bilirubin [Mass/Vol] 0.30 mg/dL 0.20-1.00 [facility] Work Phone: Comment on above: For patients on eltr ombopag therapy, use of Dimension Dysart TBIL is not recommended. Chloride [Moles/Vol] 105 mmol/L 98-107 [facility] Work Phone: Eosinophils/100 WBC (Bld) 3.5 % 0-5 [facility] Work Phone: Glucose [Mass/Vol] 91 mg/dL 74-106 [facility] Work Phone: Neutrophils (Bld) [#/Vol] 4.2 10*3/uL 2.0-7.7 [facility] Work Phone: Neutrophils/100 WBC (Bld) 62.6 % 47-70 [facility] Work Phone: [phone] Potassium [Moles/Vol] 3.8 mmol/L 3.5-5.1 [facility] Work Phone: [phone] Protein [Mass/Vol] 6.3 g/dL 6.4-8.2 [facility] Work Phone: Sodium [Moles/Vol] 139 mmol/L 136-145 [facility] Work Phone: WBC (Bld) [#/Vol] 6.6 10*3/uL 4.4-11.0 [facility] Work Phone: Blood erythrocytes count (nu mber/volume)on 09-19-2021 RBC (Bld) [#/Vol] 3.47 10*6/uL 4.6-6.2 [facility] Work Phone: Blood hemoglobin measurement (mass/volume)on 09-19-2021 [...] 94.8 fL 80-94 [facility] Work Phone: Hematocrit [...] 09-19-2021 MCHC (RBC) [Mass/Vol] 31.0 g/dL 32-36 [facility] Work Phone: No Panel Informationon 09-19 Estimated GFR (MDRD) Amer 175 mL/min >60 [facility] Work Phone: Comment on above: GFR Calc Estimated GFR (MDRD) Non-Af Amer 145 mL/min >60 [facility] Work Phone: Comment on above: Non- GFR Calc Platelets bldon 09-19-2021 Platelets (Bld) [#/Vol] 342 10*3/uL 150-450 [facility] Work Phone: Serum or plasma albumin oral urement (mass/volume)on 09-19-2021 Albumin [Mass/Vol] 2.8 g/dL 3.2-5.0 [facility] Work Phone: Serum or plasma albumin/glob ulin mass ratioon 09-19-2021 Albumin/Globulin [Mass ratio] 0.8 {ratio} 0.9-2.4 [facility] Work Phone: Serum or plasma calcium oral urement (mass/volume)on 09-19-2021 Calcium [Mass/Vol] 9.0 mg/dL 8.5-10.1 [facility] Work Phone: Serum or plasma creatinine m easurement (mass/volume)on 09-19-2021 Creatinine [Mass/Vol] 0.59 mg/dL 0.70-1.30 [facility] Work Phone: Comment on above: The validity [...] NOon 08-22-2021 OPERATIVE NO Normal [facility] Basic metabolic 2000 panelon 08-19-2021 Anion gap [Moles/Vol] 10 mmol/L Normal 9-18 [facility] Comment on above: Order Comment: Speci men Type: BLOOD SPECIMENOrdering Facility: [facility] Address: [address] [place] [address] Performed By: #### 2 4321-2 ####[facility] LABORATORYCLIA [id number] [place] [address] [place] Calcium [Mass/Vol] 8.6 mg/dL Normal 8.5-10.2 [facility] Comment on above: Order Comment: Speci men Type: BLOOD SPECIMENOrdering Facility: [facility] Address: [address] [place] [address] Performed By: #### 2 4321-2 ####[facility] LABORATORYCLIA [id number] [place] [address] [place] Chloride [Moles/Vol] 99 mmol/L Normal 97-105 [facility] Comment on above: Order Comment: Speci men Type: BLOOD SPECIMENOrdering Facility: [facility] Address: [address] [place] [address] Performed By: #### 2 4321-2 ####[facility]ORATORYCLIA [id number] [place] [address] [place] CO2 [Moles/Vol] 29 mmol/L Normal 22-30 [facility] Comment on above: Order Comment: Speci men Type: BLOOD SPECIMENOrdering Facility: [facility] Address: [address] [place] [address] Performed By: #### 2 4321-2 ####[facility]ORATORYCLIA [id number] [place] [address] [place] Creatinine [Mass/Vol] 0.58 mg/dL Low 0.73-1.22 [facility] Comment on above: Order Comment: Speci men Type: BLOOD SPECIMENOrdering Facility: [facility] Address: [address] [place] [address] Performed By: #### 2 4321-2 ####[facility]ORATORYCLIA [id number] [place] [address] [place] ESTIMATED GLOMERULAR FILTRATION RATE 106 mL/min/1.73m??? Normal >=60 [facility] Comment on above: Order Comment: Shira feldman Type: BLOOD SPECIMENOrdering Facility: [facility] Address: [address] [place] [address] Result Comment: Luzmaria mated Glomerular Filtration Rate [...] Performed By: #### 2 4321-2 ####[facility] POINTIA [id number] [place] [address] [place] Glucose [Mass/Vol] 101 mg/dL High 74-99 [facility] Comment on above: Order Comment: Shira feldman Type: BLOOD SPECIMENOrdering Facility: [facility] Address: [address] [place] [address] Result Comment: The [place] Diabetes Association (ADA) provides guidance for cutoff [...] Standards of Medical Care in Diabetes 2016, [place] [employer]. Diabetes Care. 2016.39(Suppl 1). Performed By: #### 2 4321-2 ####[facility] LABORATORYCLIA [id number] [place] [id number] [place] Potassium [Moles/Vol] 3.5 mmol/L Low 3.7-5.1 [facility] Comment on above: Order Comment: Speci men Type: BLOOD SPECIMENOrdering Facility: [facility] Address: [address] [place] [address] Performed By: #### 2 4321-2 ####[facility] LABORATORYCLIA [id number] [address] STATES OF [facility] Sodium [Moles/Vol] 138 mmol/L Normal 136-144 [facility] Comment on above: Order Comment: Speci men Type: BLOOD SPECIMENOrdering Facility: [facility] Address: [address] [place] [address] Performed By: #### 2 4321-2 ####[facility] LABORATORYCLIA [id number] [address] STATES OF [facility] Urea nitrogen [Mass/Vol] 11 mg/dL Normal 9-24 [facility] Comment on above: Order Comment: Speci men Type: BLOOD SPECIMENOrdering Facility: [facility] Address: [address] [place] [address] Performed By: #### 2 4321-2 ####[facility] LABORATORYCLIA [id number] [address] STATES OF [facility] CASE MANAGEMon 08-19-2021 CASE MANAGEM Normal [facility] CBC W Auto Differential pane l (Bld)on 08-19-2021 Basophils (Bld) [#/Vol] 0.03 10*3/uL Normal <0.11 [facility] Comment on above: Order Comment: Speci men Type: BLOOD SPECIMENOrdering Facility: [facility] Address: [address] [place] [address] Performed By: #### 5 7021-8 ####[facility] LABORATORYCLIA [id number] [address] STATES [facility] Basophils/100 WBC (Bld) 0.4 % Normal [facility] Comment on above: Order Comment: Speci men Type: BLOOD SPECIMENOrdering Facility: [facility] Address: [address] [place] [address] Performed By: #### 5 7021-8 ####[facility]ORATORYCLIA [id number] [address] Differential cell count method Nom (Bld) Auto Normal [facility] Comment on above: Order Comment: Speci men Type: BLOOD SPECIMENOrdering Facility: [facility] Address: [address] [place] [address] Performed By: #### 5 7021-8 ####[facility]ORATORYCLIA [id number] [address] Eosinophils (Bld) [#/Vol] 0.24 10*3/uL Normal <0.46 [facility] Comment on above: Order Comment: Speci men Type: BLOOD SPECIMENOrdering Facility: [facility] Address: [address] [place] [address] Performed By: #### 5 7021-8 ####[facility] LABORATORYCLIA [id number] [address] Eosinophils/100 WBC (Bld) 3.1 % Normal [facility] Comment on above: Order Comment: Speci men Type: BLOOD SPECIMENOrdering Facility: [facility] Address: [address] [place] [address] Performed By: #### 5 7021-8 ####[facility] LABORATORYCLIA [id number] [address] Erythrocyte distribution width (RBC) [Ratio] 17.5 % High 11.5-15.0 [facility] Comment on above: Order Comment: Speci men Type: BLOOD SPECIMENOrdering Facility: [facility] Address: [address] [place] [address] Performed By: #### 5 7021-8 ####[facility] LABORATORYCLIA [id number] [address] Hematocrit (Bld) [Volume fraction] 30.2 % Low 39.0-51.0 [facility] Comment on above: Order Comment: Speci men Type: BLOOD SPECIMENOrdering Facility: [facility] Address: [address] [place] [address] Performed By: #### 5 7021-8 ####[facility]ORATORYCLIA [id number] [address] Hemoglobin (Bld) [Mass/Vol] 9.6 g/dL Low 13.0-17.0 [facility] Comment on above: Order Comment: Speci men Type: BLOOD SPECIMENOrdering Facility: [facility] Address: [address] [place] [address] Performed By: #### 5 7021-8 ####[facility] LABORATORYCLIA [id number] [address] IMMATURE GRAN % 0.4 % Normal [facility] Comment on above: Order Comment: Speci men Type: BLOOD SPECIMENOrdering Facility: [facility] Address: [address] [place] [address] Performed By: #### 5 7021-8 ####[facility] LABORATORYCLIA [id number] [address] IMMATURE GRAN ABS 0.03 k/uL Normal <0.10 [facility] Comment on above: Order Comment: Speci men Type: BLOOD SPECIMENOrdering Facility: [facility] Address: [address] [place] [address] Performed By: #### 5 7021-8 ####[facility] LABORATORYCLIA [id number] [address] [place] Lymphocytes (Bld) [#/Vol] 1.71 10*3/uL Normal 1.00-4.00 [facility] Comment on above: Order Comment: Speci men Type: BLOOD SPECIMENOrdering Facility: [facility] Address: [address] [place] [address] Performed By: #### 5 7021-8 ####[facility]ORATORYCLIA [id number] [address] Lymphocytes/100 WBC (Bld) 22.2 % Normal [facility] Comment on above: Order Comment: Speci men Type: BLOOD SPECIMENOrdering Facility: [facility] Address: [address] [place] [address] Performed By: #### 5 7021-8 ####[facility] LABORATORYCLIA [id number] [address] MCH (RBC) [Entitic mass] 29.4 pg Normal 26.0-34.0 [facility] Comment on above: Order Comment: Speci men Type: BLOOD SPECIMENOrdering Facility: [facility] Address: [address] [place] [address] Performed By: #### 5 7021-8 ####[facility] LABORATORYCLIA [id number] [address] STATES [facility] MCHC (RBC) [Mass/Vol] 31.8 g/dL Normal 30.5-36.0 [facility] Comment on above: Order Comment: Speci men Type: BLOOD SPECIMENOrdering Facility: [facility] Address: [address] [place] [address] Performed By: #### 5 7021-8 ####[facility] LABORATORYCLIA [id number] [address] MCV (RBC) [Entitic vol] 92.6 fL Normal 80.0-100.0 [facility] Comment on above: Order Comment: Speci men Type: BLOOD SPECIMENOrdering Facility: [facility] Address: [address] [place] [address] Performed By: #### 5 7021-8 ####[facility] LABORATORYCLIA [id number] [address] Monocytes (Bld) [#/Vol] 0.50 10*3/uL Normal <0.87 [facility] Comment on above: Order Comment: Speci men Type: BLOOD SPECIMENOrdering Facility: [facility] Address: [address] [place] [address] Performed By: #### 5 7021-8 ####[facility] LABORATORYCLIA [id number] [place] [address] [place] Monocytes/100 WBC (Bld) 6.5 % Normal [facility] Comment on above: Order Comment: Speci men Type: BLOOD SPECIMENOrdering Facility: [facility] Address: [address] [place] [address] Performed By: #### 5 7021-8 ####[facility]ORATORYCLIA [id number] [place] [address] [place] Neutrophils (Bld) [#/Vol] 5.20 10*3/uL Normal 1.45-7.50 [facility] Comment on above: Order Comment: Speci men Type: BLOOD SPECIMENOrdering Facility: [facility] Address: [address] [place] [address] Performed By: #### 5 7021-8 ####[facility]ORATORYCLIA [id number] [address] [place] Neutrophils/100 WBC (Bld) 67.4 % Normal [facility] Comment on above: Order Comment: Speci men Type: BLOOD SPECIMENOrdering Facility: [facility] Address: [address] [place] [address] Performed By: #### 5 7021-8 ####[facility]ORATORYCLIA [id number] [place] [address] [place] Nucleated RBC (Bld) [#/Vol] 10*3/uL Normal <0.01 [facility] Comment on above: Order Comment: Speci men Type: BLOOD SPECIMENOrdering Facility: [facility] Address: [address] [place] [address] Performed By: #### 5 7021-8 ####[facility]ORATORYCLIA [id number] [place] [address] [place] Nucleated RBC/100 WBC (Bld) [Ratio] 0.0 /100 WBC Normal [facility] Comment on above: Order Comment: Speci men Type: BLOOD SPECIMENOrdering Facility: [facility] Address: [address] [place] [address] Performed By: #### 5 7021-8 ####[facility] LABORATORYCLIA [id number] [address] Platelet mean volume (Bld) [Entitic vol] 8.9 fL Low 9.0-12.7 [facility] Comment on above: Order Comment: Speci men Type: BLOOD SPECIMENOrdering Facility: [facility] Address: [address] [place] [address] Performed By: #### 5 7021-8 ####[facility] LABORATORYCLIA [id number] [address] [place] Platelets (Bld) [#/Vol] 408 10*3/uL High 150-400 [facility] Comment on above: Order Comment: Speci men Type: BLOOD SPECIMENOrdering Facility: [facility] Address: [address] [place] [address] Performed By: #### 5 7021-8 ####[facility]ORATORYCLIA [id number] [address] [place] RBC (Bld) [#/Vol] 3.26 10*6/uL Low 4.20-6.00 [facility] Comment on above: Order Comment: Speci men Type: BLOOD SPECIMENOrdering Facility: [facility] Address: [address] [place] [address] Performed By: #### 5 7021-8 ####[facility]ORATORYCLIA [id number] [address] [place] WBC (Bld) [#/Vol] 7.71 10*3/uL Normal 3.70-11.00 [facility] Comment on above: Order Comment: Speci men Type: BLOOD SPECIMENOrdering Facility: [facility] Address: [address] [place] [address] Performed By: #### 5 7021-8 ####[facility] LABORATORYCLIA [id number] [address] [place] CNDSon 08-19-2021 CNDS Normal [facility] CONSULT PROGon 08-19-2021 CONSULT PROG Normal [facility] THERAPY NTon 08-19-2021 THERAPY NT Normal [facility] Basic metabolic 2000 panelon 08-18-2021 Anion gap [Moles/Vol] 11 mmol/L Normal 9-18 [facility] Comment on above: Order Comment: Speci men Type: BLOOD SPECIMENOrdering Facility: [facility] Address: [address] [place] [address] Performed By: #### 2 4321-2 ####[facility] LABORATORYCLIA [id number] [place] [address] [place] Calcium [Mass/Vol] 8.6 mg/dL Normal 8.5-10.2 [facility] Comment on above: Order Comment: Speci men Type: BLOOD SPECIMENOrdering Facility: [facility] Address: [address] [place] [address] Performed By: #### 2 4321-2 ####[facility] LABORATORYCLIA [id number] [place] [address] [place] Chloride [Moles/Vol] 98 mmol/L Normal 97-105 [facility] Comment on above: Order Comment: Speci men Type: BLOOD SPECIMENOrdering Facility: [facility] Address: [address] [place] [address] Performed By: #### 2 4321-2 ####[facility] LABORATORYCLIA [id number] [place] [address] [place] CO2 [Moles/Vol] 28 mmol/L Normal 22-30 [facility] Comment on above: Order Comment: Speci men Type: BLOOD SPECIMENOrdering Facility: [facility] Address: [address] [place] [address] Performed By: #### 2 4321-2 ####[facility] LABORATORYCLIA [id number] [place] [address] [place] Creatinine [Mass/Vol] 0.56 mg/dL Low 0.73-1.22 [facility] Comment on above: Order Comment: Speci men Type: BLOOD SPECIMENOrdering Facility: [facility] Address: [address] [place] [address] Performed By: #### 2 4321-2 ####[facility] POINTIA [id number] [address] ESTIMATED GLOMERULAR FILTRATION RATE 107 mL/min/1.73m??? Normal >=60 [facility] Comment on above: Order Comment: Shira francia Type: BLOOD SPECIMENOrdering Facility: [facility] Address: [address] [place] [address] Result Comment: Luzmaria mated Glomerular Filtration Rate [...] Performed By: #### 2 4321-2 ####[facility] POINTIA [id number] [place] [address] [place] Glucose [Mass/Vol] 113 mg/dL High 74-99 [facility] Comment on above: Order Comment: Johncara feldman Type: BLOOD SPECIMENOrdering Facility: [facility] Address: [address] [place] [address] Result Comment: The [place] Diabetes Association (ADA) provides guidance for cutoff [...] Standards of Medical Care in Diabetes 2016, [place] [employer]. Diabetes Care. 2016.39(Suppl 1). Performed By: #### 2 4321-2 ####[facility] LABORATORYCLIA [id number] [place] [address] [place] Potassium [Moles/Vol] 3.5 mmol/L Low 3.7-5.1 [facility] Comment on above: Order Comment: Speci men Type: BLOOD SPECIMENOrdering Facility: [facility] Address: [address] [place] [address] Performed By: #### 2 4321-2 ####[facility]ORATORYCLIA [id number] [address] [place] Sodium [Moles/Vol] 137 mmol/L Normal 136-144 [facility] Comment on above: Order Comment: Speci men Type: BLOOD SPECIMENOrdering Facility: [facility] Address: [address] [place] [address] Performed By: #### 2 4321-2 ####[facility] LABORATORYCLIA [id number] [address] STATES [facility] Urea nitrogen [Mass/Vol] 10 mg/dL Normal 9-24 [facility] Comment on above: Order Comment: Speci men Type: BLOOD SPECIMENOrdering Facility: [facility] Address: [address] [place] [address] Performed By: #### 2 4321-2 ####[facility]ORATORYCLIA [id number] [address] [place] CBC W Auto Differential pane l (Bld)on 08-18-2021 Basophils (Bld) [#/Vol] 10*3/uL Normal <0.11 [facility] Comment on above: Order Comment: Speci men Type: BLOOD SPECIMENOrdering Facility: [facility] Address: [address] [place] [address] Performed By: #### 5 7021-8 ####[facility] LABORATORYCLIA [id number] [address] [place] Basophils/100 WBC (Bld) 0.3 % Normal [facility] Comment on above: Order Comment: Speci men Type: BLOOD SPECIMENOrdering Facility: [facility] Address: [address] [address] Performed By: #### 5 7021-8 ####[facility] LABORATORYCLIA [id number] [address] Differential cell count method Nom (Bld) Auto Normal [facility] Comment on above: Order Comment: Speci men Type: BLOOD SPECIMENOrdering Facility: [facility] Address: [address] [place] [address] Performed By: #### 5 7021-8 ####[facility] LABORATORYCLIA [id number] [address] [place] Eosinophils (Bld) [#/Vol] 0.37 10*3/uL Normal <0.46 [facility] Comment on above: Order Comment: Speci men Type: BLOOD SPECIMENOrdering Facility: [facility] Address: [address] [place] [address] Performed By: #### 5 7021-8 ####[facility] LABORATORYCLIA [id number] [address] Eosinophils/100 WBC (Bld) 4.8 % Normal [facility] Comment on above: Order Comment: Speci men Type: BLOOD SPECIMENOrdering Facility: [facility] Address: [address] [place] [address] Performed By: #### 5 7021-8 ####[facility] LABORATORYCLIA [id number] [address] Erythrocyte distribution width (RBC) [Ratio] 17.5 % High 11.5-15.0 [facility] Comment on above: Order Comment: Speci men Type: BLOOD SPECIMENOrdering Facility: [facility] Address: [address] [place] [address] Performed By: #### 5 7021-8 ####[facility] LABORATORYCLIA [id number] [address] [place] Hematocrit (Bld) [Volume fraction] 30.2 % Low 39.0-51.0 [facility] Comment on above: Order Comment: Speci men Type: BLOOD SPECIMENOrdering Facility: [facility] Address: [address] [place] [address] Performed By: #### 5 7021-8 ####[facility] LABORATORYCLIA [id number] [address] OF [facility] Hemoglobin (Bld) [Mass/Vol] 9.5 g/dL Low 13.0-17.0 [facility] Comment on above: Order Comment: Speci men Type: BLOOD SPECIMENOrdering Facility: [facility] Address: [address] [place] [address] Performed By: #### 5 7021-8 ####[facility] LABORATORYCLIA [id number] [address] IMMATURE GRAN % 0.4 % Normal [facility] Comment on above: Order Comment: Speci men Type: BLOOD SPECIMENOrdering Facility: [facility] Address: [address] [place] [address] Performed By: #### 5 7021-8 ####[facility] LABORATORYCLIA [id number] [address] IMMATURE GRAN ABS 0.03 k/uL Normal <0.10 [facility] Comment on above: Order Comment: Speci men Type: BLOOD SPECIMENOrdering Facility: [facility] Address: [address] [place] [address] Performed By: #### 5 7021-8 ####[facility] LABORATORYCLIA [id number] [address] [place] Lymphocytes (Bld) [#/Vol] 1.85 10*3/uL Normal 1.00-4.00 [facility] Comment on above: Order Comment: Speci men Type: BLOOD SPECIMENOrdering Facility: [facility] Address: [address] [place] [address] Performed By: #### 5 7021-8 ####[facility] LABORATORYCLIA [id number] [address] Lymphocytes/100 WBC (Bld) 23.8 % Normal [facility] Comment on above: Order Comment: Speci men Type: BLOOD SPECIMENOrdering Facility: [facility] Address: [address] [place] [address] Performed By: #### 5 7021-8 ####[facility] LABORATORYCLIA [id number] [address] MCH (RBC) [Entitic mass] 29.5 pg Normal 26.0-34.0 [facility] Comment on above: Order Comment: Speci men Type: BLOOD SPECIMENOrdering Facility: [facility] Address: [address] [place] [address] Performed By: #### 5 7021-8 ####[facility] LABORATORYCLIA [id number] [address] MCHC (RBC) [Mass/Vol] 31.5 g/dL Normal 30.5-36.0 [facility] Comment on above: Order Comment: Speci men Type: BLOOD SPECIMENOrdering Facility: [facility] Address: [address] [place] [address] Performed By: #### 5 7021-8 ####[facility] LABORATORYCLIA [id number] [address] MCV (RBC) [Entitic vol] 93.8 fL Normal 80.0-100.0 [facility] Comment on above: Order Comment: Speci men Type: BLOOD SPECIMENOrdering Facility: [facility] Address: [address] [place] [address] Performed By: #### 5 7021-8 ####[facility] LABORATORYCLIA [id number] [address] Monocytes (Bld) [#/Vol] 0.49 10*3/uL Normal <0.87 [facility] Comment on above: Order Comment: Speci men Type: BLOOD SPECIMENOrdering Facility: [facility] Address: [address] [place] [address] Performed By: #### 5 7021-8 ####[facility] LABORATORYCLIA [id number] [address] [place] Monocytes/100 WBC (Bld) 6.3 % Normal [facility] Comment on above: Order Comment: Speci men Type: BLOOD SPECIMENOrdering Facility: [facility] Address: [address] [place] [address] Performed By: #### 5 7021-8 ####[facility] LABORATORYCLIA [id number] [place] [address] [place] Neutrophils (Bld) [#/Vol] 5.00 10*3/uL Normal 1.45-7.50 [facility] Comment on above: Order Comment: Speci men Type: BLOOD SPECIMENOrdering Facility: [facility] Address: [address] [place] [address] Performed By: #### 5 7021-8 ####[facility] LABORATORYCLIA [id number] [address] Neutrophils/100 WBC (Bld) 64.4 % Normal [facility] Comment on above: Order Comment: Speci men Type: BLOOD SPECIMENOrdering Facility: [facility] Address: [address] [place] [address] Performed By: #### 5 7021-8 ####[facility] LABORATORYCLIA [id number] [address] [place] Nucleated RBC (Bld) [#/Vol] 10*3/uL Normal <0.01 [facility] Comment on above: Order Comment: Speci men Type: BLOOD SPECIMENOrdering Facility: [facility] Address: [address] [place] [address] Performed By: #### 5 7021-8 ####[facility] LABORATORYCLIA [id number] [address] [place] Nucleated RBC/100 WBC (Bld) [Ratio] 0.0 /100 WBC Normal [facility] Comment on above: Order Comment: Speci men Type: BLOOD SPECIMENOrdering Facility: [facility] Address: [address] [place], [place] [address] Performed By: #### 5 7021-8 ####[facility] LABORATORYCLIA [id number] [address] Platelet mean volume (Bld) [Entitic vol] 9.1 fL Normal 9.0-12.7 [facility] Comment on above: Order Comment: Speci men Type: BLOOD SPECIMENOrdering Facility: [facility] Address: [address] [place], [place] [address] Performed By: #### 5 7021-8 ####[facility] LABORATORYCLIA [id number] [address] [place] Platelets (Bld) [#/Vol] 391 10*3/uL Normal 150-400 [facility] Comment on above: Order Comment: Speci men Type: BLOOD SPECIMENOrdering Facility: [facility] Address: [address] [place] [address] Performed By: #### 5 7021-8 ####[facility] LABORATORYCLIA [id number] [place] [address] [place] RBC (Bld) [#/Vol] 3.22 10*6/uL Low 4.20-6.00 [facility] Comment on above: Order Comment: Speci men Type: BLOOD SPECIMENOrdering Facility: [facility] Address: [address] [place] [address] Performed By: #### 5 7021-8 ####[facility] LABORATORYCLIA [id number] [address] [place] WBC (Bld) [#/Vol] 7.76 10*3/uL Normal 3.70-11.00 [facility] Comment on above: Order Comment: Speci men Type: BLOOD SPECIMENOrdering Facility: [facility] Address: [address] [place] [address] Performed By: #### 5 7021-8 ####[facility] LABORATORYCLIA [id number] [address] [place] CONSULT PROGon 08-18-2021 CONSULT PROG Normal [facility] CASE MANAGEMon 08-17-2021 CASE MANAGEM Normal [facility] CBC W Auto Differential pane l (Bld)on 08-17-2021 Basophils (Bld) [#/Vol] 0.04 10*3/uL Normal <0.11 [facility] Comment on above: Order Comment: Speci men Type: BLOOD SPECIMENOrdering Facility: [facility] Address: [address] [place] [address] Performed By: #### 5 7021-8 ####[facility] LABORATORYCLIA [id number] [address] [place] Basophils/100 WBC (Bld) 0.5 % Normal [facility] Comment on above: Order Comment: Speci men Type: BLOOD SPECIMENOrdering Facility: [facility] Address: [address] [place] [address] Performed By: #### 5 7021-8 ####[facility] LABORATORYCLIA [id number] [address] [place] Differential cell count method Nom (Bld) Auto Normal [facility] Comment on above: Order Comment: Speci men Type: BLOOD SPECIMENOrdering Facility: [facility] Address: [address] [place] [address] Performed By: #### 5 7021-8 ####[facility] LABORATORYCLIA [id number] [place] [address] [place] Eosinophils (Bld) [#/Vol] 0.31 10*3/uL Normal <0.46 [facility] Comment on above: Order Comment: Speci men Type: BLOOD SPECIMENOrdering Facility: [facility] Address: [address] [place] [address] Performed By: #### 5 7021-8 ####[facility] LABORATORYCLIA [id number] [address] [place] Eosinophils/100 WBC (Bld) 3.7 % Normal [facility] Comment on above: Order Comment: Speci men Type: BLOOD SPECIMENOrdering Facility: [facility] Address: [address] [place] [address] Performed By: #### 5 7021-8 ####[facility] LABORATORYCLIA [id number] [address] Erythrocyte distribution width (RBC) [Ratio] 17.4 % High 11.5-15.0 [facility] Comment on above: Order Comment: Speci men Type: BLOOD SPECIMENOrdering Facility: [facility] Address: [address] [place] [address] Performed By: #### 5 7021-8 ####[facility] LABORATORYCLIA [id number] [address] Hematocrit (Bld) [Volume fraction] 30.6 % Low 39.0-51.0 [facility] Comment on above: Order Comment: Speci men Type: BLOOD SPECIMENOrdering Facility: [facility] Address: [address] [place] [address] Performed By: #### 5 7021-8 ####[facility] LABORATORYCLIA [id number] [address] [place] Hemoglobin (Bld) [Mass/Vol] 9.6 g/dL Low 13.0-17.0 [facility] Comment on above: Order Comment: Speci men Type: BLOOD SPECIMENOrdering Facility: [facility] Address: [address] [place] [address] Performed By: #### 5 7021-8 ####[facility] LABORATORYCLIA [id number] [address] [place] IMMATURE GRAN % 0.2 % Normal [facility] Comment on above: Order Comment: Speci men Type: BLOOD SPECIMENOrdering Facility: [facility] Address: [address] [place] [address] Performed By: #### 5 7021-8 ####[facility] LABORATORYCLIA [id number] [address] IMMATURE GRAN ABS <0.03 Normal <0.10 [facility] Comment on above: Order Comment: Speci men Type: BLOOD SPECIMENOrdering Facility: [facility] Address: [address] [place] [address] Performed By: #### 5 7021-8 ####[facility] LABORATORYCLIA [id number] [address] [place] Lymphocytes (Bld) [#/Vol] 1.66 10*3/uL Normal 1.00-4.00 [facility] Comment on above: Order Comment: Speci men Type: BLOOD SPECIMENOrdering Facility: [facility] Address: [address] [place] [address] Performed By: #### 5 7021-8 ####[facility] LABORATORYCLIA [id number] [address] Lymphocytes/100 WBC (Bld) 19.9 % Normal [facility] Comment on above: Order Comment: Speci men Type: BLOOD SPECIMENOrdering Facility: [facility] Address: [address] [place] [address] Performed By: #### 5 7021-8 ####[facility] LABORATORYCLIA [id number] [address] MCH (RBC) [Entitic mass] 28.9 pg Normal 26.0-34.0 [facility] Comment on above: Order Comment: Speci men Type: BLOOD SPECIMENOrdering Facility: [facility] Address: [address] [place] [address] Performed By: #### 5 7021-8 ####[facility] LABORATORYCLIA [id number] [address] MCHC (RBC) [Mass/Vol] 31.4 g/dL Normal 30.5-36.0 [facility] Comment on above: Order Comment: Speci men Type: BLOOD SPECIMENOrdering Facility: [facility] Address: [address] [place] [address] Performed By: #### 5 7021-8 ####[facility] LABORATORYCLIA [id number] [place] [address] [place] MCV (RBC) [Entitic vol] 92.2 fL Normal 80.0-100.0 [facility] Comment on above: Order Comment: Speci men Type: BLOOD SPECIMENOrdering Facility: [facility] Address: [address] [place] [address] Performed By: #### 5 7021-8 ####[facility] LABORATORYCLIA [id number] [address] [place] Monocytes (Bld) [#/Vol] 0.52 10*3/uL Normal <0.87 [facility] Comment on above: Order Comment: Speci men Type: BLOOD SPECIMENOrdering Facility: [facility] Address: [address] [place] [address] Performed By: #### 5 7021-8 ####[facility] LABORATORYCLIA [id number] [address] STATES [facility] Monocytes/100 WBC (Bld) 6.2 % Normal [facility] Comment on above: Order Comment: Speci men Type: BLOOD SPECIMENOrdering Facility: [facility] Address: [address] [place] [address] Performed By: #### 5 7021-8 ####[facility] LABORATORYCLIA [id number] [address] [place] Neutrophils (Bld) [#/Vol] 5.78 10*3/uL Normal 1.45-7.50 [facility] Comment on above: Order Comment: Speci men Type: BLOOD SPECIMENOrdering Facility: [facility] Address: [address] [place] [address] Performed By: #### 5 7021-8 ####[facility] LABORATORYCLIA [id number] [address] [place] Neutrophils/100 WBC (Bld) 69.5 % Normal [facility] Comment on above: Order Comment: Speci men Type: BLOOD SPECIMENOrdering Facility: [facility] Address: [address] Performed By: #### 5 7021-8 ####[facility] LABORATORYCLIA [id number] [address] Nucleated RBC (Bld) [#/Vol] 10*3/uL Normal <0.01 [facility] Comment on above: Order Comment: Speci men Type: BLOOD SPECIMENOrdering Facility: [facility] Address: [address] [place], [place] [address] Performed By: #### 5 7021-8 ####[facility] LABORATORYCLIA [id number] [address] Nucleated RBC/100 WBC (Bld) [Ratio] 0.0 /100 WBC Normal [facility] Comment on above: Order Comment: Speci men Type: BLOOD SPECIMENOrdering Facility: [facility] Address: [address] [place], [place] [address] Performed By: #### 5 7021-8 ####[facility] LABORATORYCLIA [id number] [address] STATES [facility] Platelet mean volume (Bld) [Entitic vol] 9.2 fL Normal 9.0-12.7 [facility] Comment on above: Order Comment: Speci men Type: BLOOD SPECIMENOrdering Facility: [facility] Address: [address] [place], [place] [address] Performed By: #### 5 7021-8 ####[facility] LABORATORYCLIA [id number] [address] STATES [facility] Platelets (Bld) [#/Vol] 379 10*3/uL Normal 150-400 [facility] Comment on above: Order Comment: Speci men Type: BLOOD SPECIMENOrdering Facility: [facility] Address: [address] [place] [address] Performed By: #### 5 7021-8 ####[facility] LABORATORYCLIA [id number] [place] [address] [place] RBC (Bld) [#/Vol] 3.32 10*6/uL Low 4.20-6.00 [facility] Comment on above: Order Comment: Speci men Type: BLOOD SPECIMENOrdering Facility: [facility] Address: [address] [place] [address] Performed By: #### 5 7021-8 ####[facility] LABORATORYCLIA [id number] [place] [address] [place] WBC (Bld) [#/Vol] 8.33 10*3/uL Normal 3.70-11.00 [facility] Comment on above: Order Comment: Speci men Type: BLOOD SPECIMENOrdering Facility: [facility] Address: [address] [place] [address] Performed By: #### 5 7021-8 ####[facility] LABORATORYCLIA [id number] [address] OF [facility] CONSULT PROGon 08-17-2021 CONSULT PROG Normal [facility] NUTRITIONon 08-17-2021 NUTRITION Normal [facility] Basic metabolic 2000 panelon 08-16-2021 Anion gap [Moles/Vol] 14 mmol/L Normal 9-18 [facility] Comment on above: Order Comment: Speci men Type: BLOOD SPECIMENOrdering Facility: [facility] Address: [address] [place] [address] Performed By: #### 2 4321-2, 95377-2 ####[facility] LABORATORYCLIA [id number] [address] [place] Calcium [Mass/Vol] 8.8 mg/dL Normal 8.5-10.2 [facility] Comment on above: Order Comment: Speci men Type: BLOOD SPECIMENOrdering Facility: [facility] Address: [address] [place] [address] Performed By: #### 2 4321-2, 10131-7 ####[facility] LABORATORYCLIA [id number] [address] [place] Chloride [Moles/Vol] 97 mmol/L Normal 97-105 [facility] Comment on above: Order Comment: Speci men Type: BLOOD SPECIMENOrdering Facility: [facility] Address: [address] [address] Performed By: #### 2 4322, ####[facility] LABORATORYCLIA [id number] [place] [address] [place] CO2 [Moles/Vol] 27 mmol/L Normal 22-30 [facility] Comment on above: Order Comment: Speci men Type: BLOOD SPECIMENOrdering Facility: [facility] Address: [address] [place] [address] Performed By: #### 2 4322, ####[facility]ENTERCLIA [id number] [address] STATES OF [facility] Creatinine [Mass/Vol] 0.50 mg/dL Low 0.73-1.22 [facility] Comment on above: Order Comment: Speci men Type: BLOOD SPECIMENOrdering Facility: [facility] Address: [address] [place] [address] Performed By: #### 2 4320-06, ####[facility] LABORATORYCLIA [id number] [address] ESTIMATED GLOMERULAR FILTRATION RATE 110 mL/min/1.73m??? Normal >=60 [facility] Comment on above: Order Comment: Speci men Type: BLOOD SPECIMENOrdering Facility: [facility] Address: [address] [place] [address] Result Comment: Luzmaria mated Glomerular Filtration Rate [...] Performed By: #### 2 2, ####[facility] LABORATORYCLIA [id number] [place] [address] [place] Glucose [Mass/Vol] 101 mg/dL High 74-99 [facility] Comment on above: Order Comment: Shira feldman Type: BLOOD SPECIMENOrdering Facility: [facility] Address: [address] [place] [address] Result Comment: The [place] [employer] (ADA) provides guidance for cutoff [...] Standards of Medical Care in Diabetes 2016, [place] [employer]. Diabetes Care. 2016.39(Suppl 1). Performed By: #### 2 ####[facility] LABORATORYCLIA [id number] [place] [address] [place] Potassium [Moles/Vol] 3.6 mmol/L Low 3.7-5.1 [facility] Comment on above: Order Comment: Shira feldman Type: BLOOD SPECIMENOrdering Facility: [facility] Address: [address] [place] [address] Performed By: #### 2 ####[facility] LABORATORYCLIA [id number] [place] [address] [place] Sodium [Moles/Vol] 138 mmol/L Normal 136-144 [facility] Comment on above: Order Comment: Shira feldman Type: BLOOD SPECIMENOrdering Facility: [facility] Address: [address] [place] [address] Performed By: #### 2 ####[facility] LABORATORYCLIA [id number] [place] [address] [place] Urea nitrogen [Mass/Vol] 11 mg/dL Normal 9-24 [facility] Comment on above: Order Comment: Speci men Type: BLOOD SPECIMENOrdering Facility: [facility] Address: [address] [place] [address] Performed By: #### 2 4321-2, 72065-1 ####[facility] LABORATORYCLIA [id number] [address] [place] CASE MANAGEMon 08-16-2021 CASE MANAGEM Normal [facility] CBC W Auto Differential pane l (Bld)on 08-16-2021 Basophils (Bld) [#/Vol] 0.03 10*3/uL Normal <0.11 [facility] Comment on above: Order Comment: Speci men Type: BLOOD SPECIMENOrdering Facility: [facility] Address: [address] [place] [address] Performed By: #### 5 7021-8 ####[facility] LABORATORYCLIA [id number] [address] [place] Basophils/100 WBC (Bld) 0.4 % Normal [facility] Comment on above: Order Comment: Speci men Type: BLOOD SPECIMENOrdering Facility: [facility] Address: [address] [place] [address] Performed By: #### 5 7021-8 ####[facility] LABORATORYCLIA [id number] [address] [place] Differential cell count method Nom (Bld) Auto Normal [facility] Comment on above: Order Comment: Speci men Type: BLOOD SPECIMENOrdering Facility: [facility] Address: [address] [place] [address] Performed By: #### 5 7021-8 ####[facility] LABORATORYCLIA [id number] [place] [address] [place] Eosinophils (Bld) [#/Vol] 0.19 10*3/uL Normal <0.46 [facility] Comment on above: Order Comment: Speci men Type: BLOOD SPECIMENOrdering Facility: [facility] Address: [address] [place] [address] Performed By: #### 5 7021-8 ####[facility]ORATORYCLIA [id number] [address] Eosinophils/100 WBC (Bld) 2.5 % Normal [facility] Comment on above: Order Comment: Speci men Type: BLOOD SPECIMENOrdering Facility: [facility] Address: [address] [place] [address] Performed By: #### 5 7021-8 ####[facility] LABORATORYCLIA [id number] [address] Erythrocyte distribution width (RBC) [Ratio] 17.1 % High 11.5-15.0 [facility] Comment on above: Order Comment: Speci men Type: BLOOD SPECIMENOrdering Facility: [facility] Address: [address] [place] [address] Performed By: #### 5 7021-8 ####[facility] LABORATORYCLIA [id number] [address] Hematocrit (Bld) [Volume fraction] 29.2 % Low 39.0-51.0 [facility] Comment on above: Order Comment: Speci men Type: BLOOD SPECIMENOrdering Facility: [facility] Address: [address] [place] [address] Performed By: #### 5 7021-8 ####[facility] LABORATORYCLIA [id number] [address] Hemoglobin (Bld) [Mass/Vol] 9.0 g/dL Low 13.0-17.0 [facility] Comment on above: Order Comment: Speci men Type: BLOOD SPECIMENOrdering Facility: [facility] Address: [address] [place] [address] Performed By: #### 5 7021-8 ####[facility]ORATORYCLIA [id number] [address] [place] IMMATURE GRAN % 0.3 % Normal [facility] Comment on above: Order Comment: Speci men Type: BLOOD SPECIMENOrdering Facility: [facility] Address: [address] [place] [address] Performed By: #### 5 7021-8 ####[facility] LABORATORYCLIA [id number] [address] IMMATURE GRAN ABS <0.03 Normal <0.10 [facility] Comment on above: Order Comment: Speci men Type: BLOOD SPECIMENOrdering Facility: [facility] Address: [address] [place] [address] Performed By: #### 5 7021-8 ####[facility] LABORATORYCLIA [id number] [address] Lymphocytes (Bld) [#/Vol] 1.41 10*3/uL Normal 1.00-4.00 [facility] Comment on above: Order Comment: Speci men Type: BLOOD SPECIMENOrdering Facility: [facility] Address: [address] [place] [address] Performed By: #### 5 7021-8 ####[facility]ORATORYCLIA [id number] [address] Lymphocytes/100 WBC (Bld) 18.4 % Normal [facility] Comment on above: Order Comment: Speci men Type: BLOOD SPECIMENOrdering Facility: [facility] Address: [address] [place] [address] Performed By: #### 5 7021-8 ####[facility] LABORATORYCLIA [id number] [address] MCH (RBC) [Entitic mass] 28.0 pg Normal 26.0-34.0 [facility] Comment on above: Order Comment: Speci men Type: BLOOD SPECIMENOrdering Facility: [facility] Address: [address] [place] [address] Performed By: #### 5 7021-8 ####[facility] LABORATORYCLIA [id number] [address] MCHC (RBC) [Mass/Vol] 30.8 g/dL Normal 30.5-36.0 [facility] Comment on above: Order Comment: Speci men Type: BLOOD SPECIMENOrdering Facility: [facility] Address: [address] [place] [address] Performed By: #### 5 7021-8 ####[facility]ORATORYCLIA [id number] [address] [place] MCV (RBC) [Entitic vol] 91.0 fL Normal 80.0-100.0 [facility] Comment on above: Order Comment: Speci men Type: BLOOD SPECIMENOrdering Facility: [facility] Address: [address] [place] [address] Performed By: #### 5 7021-8 ####[facility] LABORATORYCLIA [id number] [address] STATES [facility] Monocytes (Bld) [#/Vol] 0.47 10*3/uL Normal <0.87 [facility] Comment on above: Order Comment: Speci men Type: BLOOD SPECIMENOrdering Facility: [facility] Address: [address] [place] [address] Performed By: #### 5 7021-8 ####[facility]ORATORYCLIA [id number] [address] Monocytes/100 WBC (Bld) 6.1 % Normal [facility] Comment on above: Order Comment: Speci men Type: BLOOD SPECIMENOrdering Facility: [facility] Address: [address] [place] [address] Performed By: #### 5 7021-8 ####[facility]ORATORYCLIA [id number] [address] [place] Neutrophils (Bld) [#/Vol] 5.55 10*3/uL Normal 1.45-7.50 [facility] Comment on above: Order Comment: Speci men Type: BLOOD SPECIMENOrdering Facility: [facility] Address: [address] [place], [place] [address] Performed By: #### 5 7021-8 ####[facility]ATORYCLIA [id number] [address] Neutrophils/100 WBC (Bld) 72.3 % Normal [facility] Comment on above: Order Comment: Speci men Type: BLOOD SPECIMENOrdering Facility: [facility] Address: [address] [place] [address] Performed By: #### 5 7021-8 ####[facility]ORATORYCLIA [id number] [address] [place] Nucleated RBC (Bld) [#/Vol] 10*3/uL Normal <0.01 [facility] Comment on above: Order Comment: Speci men Type: BLOOD SPECIMENOrdering Facility: [facility] Address: [address] [place] [address] Performed By: #### 5 7021-8 ####[facility]ORATORYCLIA [id number] [address] Nucleated RBC/100 WBC (Bld) [Ratio] 0.0 /100 WBC Normal [facility] Comment on above: Order Comment: Speci men Type: BLOOD SPECIMENOrdering Facility: [facility] Address: [address] [place] [address] Performed By: #### 5 7021-8 ####[facility]ORATORYCLIA [id number] [address] [place] Platelet mean volume (Bld) [Entitic vol] 9.3 fL Normal 9.0-12.7 [facility] Comment on above: Order Comment: Speci men Type: BLOOD SPECIMENOrdering Facility: [facility] Address: [address] [place] [address] Performed By: #### 5 7021-8 ####[facility]ATORYCLIA [id number] [address] [place] Platelets (Bld) [#/Vol] 319 10*3/uL Normal 150-400 [facility] Comment on above: Order Comment: Speci men Type: BLOOD SPECIMENOrdering Facility: [facility] Address: [address] [place] [address] Performed By: #### 5 7021-8 ####[facility] LABORATORYCLIA [id number] [address] [place] RBC (Bld) [#/Vol] 3.21 10*6/uL Low 4.20-6.00 [facility] Comment on above: Order Comment: Speci men Type: BLOOD SPECIMENOrdering Facility: [facility] Address: [address] [place] [address] Performed By: #### 5 7021-8 ####[facility]ORATORYCLIA [id number] [address] [place] WBC (Bld) [#/Vol] 7.67 10*3/uL Normal 3.70-11.00 [facility] Comment on above: Order Comment: Speci men Type: BLOOD SPECIMENOrdering Facility: [facility] Address: [address] [place] [address] Performed By: #### 5 7021-8 ####[facility]ORATORYCLIA [id number] [address] [place] Basophils (Bld) [#/Vol] 0.04 10*3/uL Normal <0.11 [facility] Comment on above: Order Comment: Speci men Type: BLOOD SPECIMENOrdering Facility: [facility] Address: [address] [place] [address] Performed By: #### 5 7021-8 ####[facility]ORATORYCLIA [id number] [address] [place] Basophils/100 WBC (Bld) 0.5 % Normal [facility] Comment on above: Order Comment: Speci men Type: BLOOD SPECIMENOrdering Facility: [facility] Address: [address] [place] [address] Performed By: #### 5 7021-8 ####[facility]ORATORYCLIA [id number] [address] Differential cell count method Nom (Bld) Auto Normal [facility] Comment on above: Order Comment: Speci men Type: BLOOD SPECIMENOrdering Facility: [facility] Address: [address] [place] [address] Performed By: #### 5 7021-8 ####[facility]ORATORYCLIA [id number] [address] [place] Eosinophils (Bld) [#/Vol] 0.19 10*3/uL Normal <0.46 [facility] Comment on above: Order Comment: Speci men Type: BLOOD SPECIMENOrdering Facility: [facility] Address: [address] [place] [address] Performed By: #### 5 7021-8 ####[facility]ORATORYCLIA [id number] [address] Eosinophils/100 WBC (Bld) 2.5 % Normal [facility] Comment on above: Order Comment: Speci men Type: BLOOD SPECIMENOrdering Facility: [facility] Address: [address] [place] [address] Performed By: #### 5 7021-8 ####[facility]ORATORYCLIA [id number] [address] Erythrocyte distribution width (RBC) [Ratio] 17.2 % High 11.5-15.0 [facility] Comment on above: Order Comment: Speci men Type: BLOOD SPECIMENOrdering Facility: [facility] Address: [address] [place] [address] Performed By: #### 5 7021-8 ####[facility]ORATORYCLIA [id number] [address] [place] Hematocrit (Bld) [Volume fraction] 29.5 % Low 39.0-51.0 [facility] Comment on above: Order Comment: Speci men Type: BLOOD SPECIMENOrdering Facility: [facility] Address: [address] [place] [address] Performed By: #### 5 7021-8 ####[facility]ORATORYCLIA [id number] [address] STATES OF [facility] Hemoglobin (Bld) [Mass/Vol] 9.2 g/dL Low 13.0-17.0 [facility] Comment on above: Order Comment: Speci men Type: BLOOD SPECIMENOrdering Facility: [facility] Address: [address] [place] [address] Performed By: #### 5 7021-8 ####[facility]ORATORYCLIA [id number] [address] IMMATURE GRAN % 0.4 % Normal [facility] Comment on above: Order Comment: Speci men Type: BLOOD SPECIMENOrdering Facility: [facility] Address: [address] [place] [address] Performed By: #### 5 7021-8 ####[facility]ORATORYCLIA [id number] [address] IMMATURE GRAN ABS 0.03 k/uL Normal <0.10 [facility] Comment on above: Order Comment: Speci men Type: BLOOD SPECIMENOrdering Facility: [facility] Address: [address] [place] [address] Performed By: #### 5 7021-8 ####[facility]ATORYCLIA [id number] [address] [place] Lymphocytes (Bld) [#/Vol] 1.50 10*3/uL Normal 1.00-4.00 [facility] Comment on above: Order Comment: Speci men Type: BLOOD SPECIMENOrdering Facility: [facility] Address: [address] [place] [address] Performed By: #### 5 7021-8 ####[facility]ATORYCLIA [id number] [address] Lymphocytes/100 WBC (Bld) 19.7 % Normal [facility] Comment on above: Order Comment: Speci men Type: BLOOD SPECIMENOrdering Facility: [facility] Address: [address] [place] [address] Performed By: #### 5 7021-8 ####[facility]ORATORYCLIA [id number] [address] MCH (RBC) [Entitic mass] 28.3 pg Normal 26.0-34.0 [facility] Comment on above: Order Comment: Speci men Type: BLOOD SPECIMENOrdering Facility: [facility] Address: [address] [place] [address] Performed By: #### 5 7021-8 ####[facility]ORATORYCLIA [id number] [address] MCHC (RBC) [Mass/Vol] 31.2 g/dL Normal 30.5-36.0 [facility] Comment on above: Order Comment: Speci men Type: BLOOD SPECIMENOrdering Facility: [facility] Address: [address] [place] [address] Performed By: #### 5 7021-8 ####[facility]ORATORYCLIA [id number] [address] STATES [facility] MCV (RBC) [Entitic vol] 90.8 fL Normal 80.0-100.0 [facility] Comment on above: Order Comment: Speci men Type: BLOOD SPECIMENOrdering Facility: [facility] Address: [address] [place] [address] Performed By: #### 5 7021-8 ####[facility]ORATORYCLIA [id number] [address] Monocytes (Bld) [#/Vol] 0.49 10*3/uL Normal <0.87 [facility] Comment on above: Order Comment: Speci men Type: BLOOD SPECIMENOrdering Facility: [facility] Address: [address] [place] [address] Performed By: #### 5 7021-8 ####[facility]ORATORYCLIA [id number] [address] Monocytes/100 WBC (Bld) 6.4 % Normal [facility] Comment on above: Order Comment: Speci men Type: BLOOD SPECIMENOrdering Facility: [facility] Address: [address] [address] Performed By: #### 5 7021-8 ####[facility]ORATORYCLIA [id number] [address] [place] Neutrophils (Bld) [#/Vol] 5.38 10*3/uL Normal 1.45-7.50 [facility] Comment on above: Order Comment: Speci men Type: BLOOD SPECIMENOrdering Facility: [facility] Address: [address] [place] [address] Performed By: #### 5 7021-8 ####[facility]ORATORYCLIA [id number] [address] [place] Neutrophils/100 WBC (Bld) 70.5 % Normal [facility] Comment on above: Order Comment: Speci men Type: BLOOD SPECIMENOrdering Facility: [facility] Address: [address] [place] [address] Performed By: #### 5 7021-8 ####[facility]ORATORYCLIA [id number] [address] [place] Nucleated RBC (Bld) [#/Vol] 10*3/uL Normal <0.01 [facility] Comment on above: Order Comment: Speci men Type: BLOOD SPECIMENOrdering Facility: [facility] Address: [address] [address] Performed By: #### 5 7021-8 ####[facility]ATORYCLIA [id number] [address] [place] Nucleated RBC/100 WBC (Bld) [Ratio] 0.0 /100 WBC Normal [facility] Comment on above: Order Comment: Speci men Type: BLOOD SPECIMENOrdering Facility: [facility] Address: [address] [address] Performed By: #### 5 7021-8 ####[facility]ORATORYCLIA [id number] [place] [address] [place] Platelet mean volume (Bld) [Entitic vol] 9.0 fL Normal 9.0-12.7 [facility] Comment on above: Order Comment: Speci men Type: BLOOD SPECIMENOrdering Facility: [facility] Address: [address] [place] [address] Performed By: #### 5 7021-8 ####[facility]ORATORYCLIA [id number] [place] [address] [place] Platelets (Bld) [#/Vol] 316 10*3/uL Normal 150-400 [facility] Comment on above: Order Comment: Speci men Type: BLOOD SPECIMENOrdering Facility: [facility] Address: [address] [place] [address] Performed By: #### 5 7021-8 ####[facility]ORATORYCLIA [id number] [place] [address] [place] RBC (Bld) [#/Vol] 3.25 10*6/uL Low 4.20-6.00 [facility] Comment on above: Order Comment: Speci men Type: BLOOD SPECIMENOrdering Facility: [facility] Address: [address] [place] [address] Performed By: #### 5 7021-8 ####[facility]ORATORYCLIA [id number] [address] [place] WBC (Bld) [#/Vol] 7.63 10*3/uL Normal 3.70-11.00 [facility] Comment on above: Order Comment: Speci men Type: BLOOD SPECIMENOrdering Facility: [facility] Address: [address] [place] [address] Performed By: #### 5 7021-8 ####[facility]ORATORYCLIA [id number] [address] [place] Basophils (Bld) [#/Vol] Normal <0.11 [facility] Comment on above: Order Comment: Speci men Type: BLOOD SPECIMENOrdering Facility: [facility] Address: [address] [place] [address] Result Comment: Carolina Owens RN informed lab after results autoverified that she rd on the wrong patient. Lab to credit. Nurse to redraw on correct patient.Corrected result: Previously reported as 0.04 k/uL on 08/16/2021 at 4:44 AM EDT. Performed By: #### 5 7021-8 ####[facility]ORATORYCLIA [id number] [address] STATES OF [facility] Basophils/100 WBC (Bld) Normal [facility] Comment on above: Order Comment: Johni francia Type: BLOOD SPECIMENOrdering Facility: [facility] Address: [address] [place] [address] Result Comment: Tati ected result: Previously reported as 0.4 % on 08/16/2021 at 4:44 AM EDT. Performed By: #### 5 7021-8 ####[facility]ORATORYCLIA [id number] [address] STATES OF [facility] CBC W Differential panel, method unspecified (Bld) Normal [facility] Comment on above: Order Comment: Speccara feldman Type: BLOOD SPECIMENOrdering Facility: [facility] Address: [address] [place] [address] Result Comment: Carolina Owens RN informed lab after results autoverified that she rd on the wrong patient. Lab to credit. Nurse to redraw on correct patient. Performed By: #### 5 7021-8 ####[facility]ORATORYCLIA [id number] [address] STATES OF [facility] Differential cell count method Nom (Bld) Normal [facility] Comment on above: Order Comment: Speci francia Type: BLOOD SPECIMENOrdering Facility: [facility] Address: [address] [place] [address] Result Comment: Carolina Owens RN informed lab after results autoverified that she rd on the wrong patient. Lab to credit. Nurse to redraw on correct patient.Corrected result: Previously reported as Auto on 08/16/2021 at 4:44 AM EDT. Performed By: #### 5 7021-8 ####[facility]ORATORYCLIA [id number] [address] Eosinophils (Bld) [#/Vol] Normal <0.46 [facility] Comment on above: Order Comment: Speci men Type: BLOOD SPECIMENOrdering Facility: [facility] Address: [address] [place] [address] Result Comment: Carolina Owens RN informed lab after results autoverified that she rd on the wrong patient. Lab to credit. Nurse to redraw on correct patient.Corrected result: Previously reported as 0.07 k/uL on 08/16/2021 at 4:44 AM EDT. Performed By: #### 5 7021-8 ####[facility]ORATORYCLIA [id number] [address] Eosinophils/100 WBC (Bld) Normal [facility] Comment on above: Order Comment: Speci men Type: BLOOD SPECIMENOrdering Facility: [facility] Address: [address] [place] [address] Result Comment: Carolina Owens RN informed lab after results autoverified that she rd on the wrong patient. Lab to credit. Nurse to redraw on correct patient.Corrected result: Previously reported as 0.7 % on 08/16/2021 at 4:44 AM EDT. Performed By: #### 5 7021-8 ####[facility]ORATORYCLIA [id number] [address] Erythrocyte distribution width (RBC) [Ratio] Normal 11.5-15.0 [facility] Comment on above: Order Comment: Speci men Type: BLOOD SPECIMENOrdering Facility: [facility] Address: [address] [place] [address] Result Comment: Carolina Owens RN informed lab after results autoverified that she rd on the wrong patient. Lab to credit. Nurse to redraw on correct patient.Corrected result: Previously reported as 14.2 % on 08/16/2021 at 4:44 AM EDT. Performed By: #### 5 7021-8 ####[facility]ORATORYCLIA [id number] [address] Hematocrit (Bld) [Volume fraction] Normal 39.0-51.0 [facility] Comment on above: Order Comment: Speci men Type: BLOOD SPECIMENOrdering Facility: [facility] Address: [address] [place] [address] Result Comment: Carolina Owens RN informed lab after results autoverified that she rd on the wrong patient. Lab to credit. Nurse to redraw on correct patient.Corrected result: Previously reported as 34.3 % on 08/16/2021 at 4:44 AM EDT. Performed By: #### 5 7021-8 ####[facility]ATORYCLIA [id number] [address] Hemoglobin (Bld) [Mass/Vol] Normal 13.0-17.0 [facility] Comment on above: Order Comment: Speci men Type: BLOOD SPECIMENOrdering Facility: [facility] Address: [address] [place] [address] Result Comment: Carolina Owens RN informed lab after results autoverified that she rd on the wrong patient. Lab to credit. Nurse to redraw on correct patient.Corrected result: Previously reported as 11.2 g/dL on 08/16/2021 at 4:44 AM EDT. Performed By: #### 5 7021-8 ####[facility]ORATORYCLIA [id number] [address] [place] IMMATURE GRAN % Normal [facility] Comment on above: Order Comment: Speci men Type: BLOOD SPECIMENOrdering Facility: [facility] Address: [address] [place] [address] Result Comment: Carolina Owens RN informed lab after results autoverified that she rd on the wrong patient. Lab to credit. Nurse to redraw on correct patient.Corrected result: Previously reported as 0.8 % on 08/16/2021 at 4:44 AM EDT. Performed By: #### 5 7021-8 ####[facility]ORATORYCLIA [id number] [address] STATES [facility] IMMATURE GRAN ABS Normal <0.10 [facility] Comment on above: Order Comment: Speci men Type: BLOOD SPECIMENOrdering Facility: [facility] Address: [address] [place] [address] Result Comment: Tati ected result: Previously reported as 0.08 k/uL on 08/16/2021 at 4:44 AM EDT. Performed By: #### 5 7021-8 ####[facility]ATORYCLIA [id number] [address] Lymphocytes (Bld) [#/Vol] Normal 1.00-4.00 [facility] Comment on above: Order Comment: Speci [facility] Type: BLOOD SPECIMENOrdering Facility: [facility] Address: [address] [place] [address] Result Comment: Carolina Owens RN informed lab after results autoverified that she rd on the wrong patient. Lab to credit. Nurse to redraw on correct patient.Corrected result: Previously reported as 1.17 k/uL on 08/16/2021 at 4:44 AM EDT. Performed By: #### 5 7021-8 ####[facility]ATORYCLIA [id number] [address] Lymphocytes/100 WBC (Bld) Normal [facility] Comment on above: Order Comment: Speci men Type: BLOOD SPECIMENOrdering Facility: [facility] Address: [address] [place] [address] Result Comment: Carolina Owens RN informed lab after results autoverified that she rd on the wrong patient. Lab to credit. Nurse to redraw on correct patient.Corrected result: Previously reported as 12.0 % on 08/16/2021 at 4:44 AM EDT. Performed By: #### 5 7021-8 ####[facility] LABORATORYCLIA [id number] [place] [address] [place] MCHC (RBC) [Mass/Vol] Normal 30.5-36.0 [facility] Comment on above: Order Comment: Speci men Type: BLOOD SPECIMENOrdering Facility: [facility] Address: [address] [place] [address] Result Comment: Carolina Owens RN informed lab after results autoverified that she rd on the wrong patient. Lab to credit. Nurse to redraw on correct patient.Corrected result: Previously reported as 32.7 g/dL on 08/16/2021 at 4:44 AM EDT. Performed By: #### 5 7021-8 ####[facility]ORATORYCLIA [id number] [address] MCV (RBC) [Entitic vol] Normal 80.0-100.0 [facility] Comment on above: Order Comment: Speci men Type: BLOOD SPECIMENOrdering Facility: [facility] Address: [address] [place] [address] Result Comment: Carolina Owens RN informed lab after results autoverified that she rd on the wrong patient. Lab to credit. Nurse to redraw on correct patient.Corrected result: Previously reported as 94.2 fL on 08/16/2021 at 4:44 AM EDT. Performed By: #### 5 7021-8 ####[facility]ORATORYCLIA [id number] [address] [place] Monocytes (Bld) [#/Vol] Normal <0.87 [facility] Comment on above: Order Comment: Speci men Type: BLOOD SPECIMENOrdering Facility: [facility] Address: [address] [place] [address] Result Comment: Carolina Owens RN informed lab after results autoverified that she rd on the wrong patient. Lab to credit. Nurse to redraw on correct patient.Corrected result: Previously reported as 0.99 k/uL on 08/16/2021 at 4:44 AM EDT. Performed By: #### 5 7021-8 ####[facility]ATORYCLIA [id number] [address] [place] Monocytes/100 WBC (Bld) Normal [facility] Comment on above: Order Comment: Speci francia Type: BLOOD SPECIMENOrdering Facility: [facility] Address: [address] [place] [address] Result Comment: Carolina Owens RN informed lab after results autoverified that she rd on the wrong patient. Lab to credit. Nurse to redraw on correct patient.Corrected result: Previously reported as 10.2 % on 08/16/2021 at 4:44 AM EDT. Performed By: #### 5 7021-8 ####[facility]ATORYCLIA [id number] [address] [place] Neutrophils (Bld) [#/Vol] Normal 1.45-7.50 [facility] Comment on above: Order Comment: Speccara feldman Type: BLOOD SPECIMENOrdering Facility: [facility] Address: [address] [place] [address] Result Comment: Carolina Owens RN informed lab after results autoverified that she rd on the wrong patient. Lab to credit. Nurse to redraw on correct patient.Corrected result: Previously reported as 7.40 k/uL on 08/16/2021 at 4:44 AM EDT. Performed By: #### 5 7021-8 ####[facility]ORATORYCLIA [id number] [address] STATES OF [facility] Neutrophils/100 WBC (Bld) Normal [facility] Comment on above: Order Comment: Speci francia Type: BLOOD SPECIMENOrdering Facility: [facility] Address: [address] [place] [address] Result Comment: Carolina Owens RN informed lab after results autoverified that she rd on the wrong patient. Lab to credit. Nurse to redraw on correct patient.Corrected result: Previously reported as 75.9 % on 08/16/2021 at 4:44 AM EDT. Performed By: #### 5 7021-8 ####[facility]ORATORYCLIA [id number] [place] [address] [place] Platelet mean volume (Bld) [Entitic vol] Normal 9.0-12.7 [facility] Comment on above: Order Comment: Speci men Type: BLOOD SPECIMENOrdering Facility: [facility] Address: [address] [place] [address] Result Comment: Carolina Owens RN informed lab after results autoverified that she rd on the wrong patient. Lab to credit. Nurse to redraw on correct patient.Corrected result: Previously reported as 9.1 fL on 08/16/2021 at 4:44 AM EDT. Performed By: #### 5 7021-8 ####[facility]ORATORYCLIA [id number] [place] [address] [place] Platelets (Bld) [#/Vol] Normal 150-400 [facility] Comment on above: Order Comment: Speci men Type: BLOOD SPECIMENOrdering Facility: [facility] Address: [address] [place] [address] Result Comment: Carolina Owens RN informed lab after results autoverified that she rd on the wrong patient. Lab to credit. Nurse to redraw on correct patient.Corrected result: Previously reported as 338 k/uL on 08/16/2021 at 4:44 AM EDT. Performed By: #### 5 7021-8 ####[facility]ORATORYCLIA [id number] [place] [address] [place] RBC (Bld) [#/Vol] Normal 4.20-6.00 [facility] Comment on above: Order Comment: Speci men Type: BLOOD SPECIMENOrdering Facility: [facility] Address: [address] [place] [address] Result Comment: Carolina Owens RN informed lab after results autoverified that she rd on the wrong patient. Lab to credit. Nurse to redraw on correct patient.Corrected result: Previously reported as 3.64 m/uL on 08/16/2021 at 4:44 AM EDT. Performed By: #### 5 7021-8 ####[facility]ORATORYCLIA [id number] [place] [address] [facility] [place] WBC (Bld) [#/Vol] Normal 3.70-11.00 [facility] Comment on above: Order Comment: Speci men Type: BLOOD SPECIMENOrdering Facility: [facility] Address: [address] [place] [address] Result Comment: Carolina Owens RN informed lab after results autoverified that she rd on the wrong patient. Lab to credit. Nurse to redraw on correct patient.Corrected result: Previously reported as 9.75 k/uL on 08/16/2021 at 4:44 AM EDT. Performed By: #### 5 7021-8 ####[facility]ORATORYCLIA [id number] [address] [place] CONSULT PROGon 08-16-2021 CONSULT PROG [facility] Magnesium SerPl-mCncon 08-16 Magnesium [Mass/Vol] 1.8 mg/dL Normal 1.7-2.3 [facility] Comment on above: Order Comment: Speci men Type: BLOOD SPECIMENOrdering Facility: [facility] Address: [address] [place] [address] Performed By: #### 2 4321-2, 09932-8 ####[facility]ORATORYCLIA [id number] [place] [address] [place] NURSING PROGon 08-16-2021 NURSING PROG Normal [facility] Basic metabolic 2000 panelon 08-15-2021 Anion gap [Moles/Vol] 13 mmol/L Normal 9-18 [facility] Comment on above: Order Comment: Speci men Type: BLOOD SPECIMENOrdering Facility: [facility] Address: [address] [place] [address] Performed By: #### 2 4321-2 ####[facility]ORATORYCLIA [id number] [place] [address] [place] Calcium [Mass/Vol] 9.0 mg/dL Normal 8.5-10.2 [facility] Comment on above: Order Comment: Speci men Type: BLOOD SPECIMENOrdering Facility: [facility] Address: [address] [address] Performed By: #### 2 4321-2 ####[facility]ORATORYCLIA [id number] [place] [address] [place] Chloride [Moles/Vol] 95 mmol/L Low 97-105 [facility] Comment on above: Order Comment: Speci men Type: BLOOD SPECIMENOrdering Facility: [facility] Address: [address] [place] [address] Performed By: #### 2 4321-2 ####[facility]ORATORYCLIA [id number] [place] [address] [place] CO2 [Moles/Vol] 28 mmol/L Normal 22-30 [facility] Comment on above: Order Comment: Speci men Type: BLOOD SPECIMENOrdering Facility: [facility] Address: [address] [place] [address] Performed By: #### 2 4321-2 ####[facility] LABORATORYCLIA [id number] [address] STATES OF [facility] Creatinine [Mass/Vol] 0.50 mg/dL Low 0.73-1.22 [facility] Comment on above: Order Comment: Speci men Type: BLOOD SPECIMENOrdering Facility: [facility] Address: [address] [place] [address] Performed By: #### 2 4321-2 ####[facility]ORATORYCLIA [id number] [address] ESTIMATED GLOMERULAR FILTRATION RATE 110 mL/min/1.73m??? Normal >=60 [facility] Comment on above: Order Comment: Speci men Type: BLOOD SPECIMENOrdering Facility: [facility] Address: [address] [place] [address] Result Comment: Luzmaria mated Glomerular Filtration Rate [...] 2 4321-2 ####[facility]ORATORYCLIA [id number] [place] [address] [place] Glucose [Mass/Vol] 106 mg/dL High 74-99 [facility] Comment on above: Order Comment: Shira feldman Type: BLOOD SPECIMENOrdering Facility: [facility] Address: [address] [place] [address] Result Comment: The [place] [employer] (ADA) provides guidance for cutoff [...] Standards of Medical Care in Diabetes 2016, [place] [employer]. Diabetes Care. 2016.39(Suppl 1). Performed By: #### 2 4321-2 ####[facility]ATORYCLIA [id number] [place] [address] [place] Potassium [Moles/Vol] 3.3 mmol/L Low 3.7-5.1 [facility] Comment on above: Order Comment: Shira feldman Type: BLOOD SPECIMENOrdering Facility: [facility] Address: [address] [address] Performed By: #### 2 4321-2 ####[facility]ORATORYCLIA [id number] [place] [address] [place] Sodium [Moles/Vol] 136 mmol/L Normal 136-144 [facility] Comment on above: Order Comment: Shira feldman Type: BLOOD SPECIMENOrdering Facility: [facility] Address: [address] [address] Performed By: #### 2 4321-2 ####[facility]ORATORYCLIA [id number] [address] [place] Urea nitrogen [Mass/Vol] 11 mg/dL Normal 9-24 [facility] Comment on above: Order Comment: Speci men Type: BLOOD SPECIMENOrdering Facility: [facility] Address: [address] [place] [address] Performed By: #### 2 4321-2 ####[facility] LABORATORYCLIA [id number] [address] [place] CASE MANAGEMon 08-15-2021 CASE MANAGEM Normal [facility] CBC W Auto Differential pane l (Bld)on 08-15-2021 Basophils (Bld) [#/Vol] 0.03 10*3/uL Normal <0.11 [facility] Comment on above: Order Comment: Speci men Type: BLOOD SPECIMENOrdering Facility: [facility] Address: [address] [place] [address] Performed By: #### 5 7021-8 ####[facility]ATORYCLIA [id number] [address] [place] Basophils/100 WBC (Bld) 0.4 % Normal [facility] Comment on above: Order Comment: Speci men Type: BLOOD SPECIMENOrdering Facility: [facility] Address: [address] [place] [address] Performed By: #### 5 7021-8 ####[facility]ORATORYCLIA [id number] [address] STATES OF [facility] Differential cell count method Nom (Bld) Auto Normal [facility] Comment on above: Order Comment: Speci men Type: BLOOD SPECIMENOrdering Facility: [facility] Address: [address] [place] [address] Performed By: #### 5 7021-8 ####[facility]ORATORYCLIA [id number] [place] [address] [place] Eosinophils (Bld) [#/Vol] 0.20 10*3/uL Normal <0.46 [facility] Comment on above: Order Comment: Speci men Type: BLOOD SPECIMENOrdering Facility: [facility] Address: [address] [place] [address] Performed By: #### 5 7021-8 ####[facility]ORATORYCLIA [id number] [address] STATES OF [facility] Eosinophils/100 WBC (Bld) 2.5 % Normal [facility] Comment on above: Order Comment: Speci men Type: BLOOD SPECIMENOrdering Facility: [facility] Address: [address] [place] [address] Performed By: #### 5 7021-8 ####[facility]ORATORYCLIA [id number] [address] Erythrocyte distribution width (RBC) [Ratio] 16.7 % High 11.5-15.0 [facility] Comment on above: Order Comment: Speci men Type: BLOOD SPECIMENOrdering Facility: [facility] Address: [address] [place] [address] Performed By: #### 5 7021-8 ####[facility]ORATORYCLIA [id number] [address] Hematocrit (Bld) [Volume fraction] 30.3 % Low 39.0-51.0 [facility] Comment on above: Order Comment: Speci men Type: BLOOD SPECIMENOrdering Facility: [facility] Address: [address] [place] [address] Performed By: #### 5 7021-8 ####[facility]ORATORYCLIA [id number] [address] [place] Hemoglobin (Bld) [Mass/Vol] 9.4 g/dL Low 13.0-17.0 [facility] Comment on above: Order Comment: Speci men Type: BLOOD SPECIMENOrdering Facility: [facility] Address: [address] [place] [address] Performed By: #### 5 7021-8 ####[facility]ATORYCLIA [id number] [address] [place] IMMATURE GRAN % 0.4 % Normal [facility] Comment on above: Order Comment: Speci men Type: BLOOD SPECIMENOrdering Facility: [facility] Address: [address] [place] [address] Performed By: #### 5 7021-8 ####[facility]ATORYCLIA [id number] [address] IMMATURE GRAN ABS 0.03 k/uL Normal <0.10 [facility] Comment on above: Order Comment: Speci men Type: BLOOD SPECIMENOrdering Facility: [facility] Address: [address] [place] [address] Performed By: #### 5 7021-8 ####[facility]ATORYCLIA [id number] [address] Lymphocytes (Bld) [#/Vol] 1.50 10*3/uL Normal 1.00-4.00 [facility] Comment on above: Order Comment: Speci men Type: BLOOD SPECIMENOrdering Facility: [facility] Address: [address] [place] [address] Performed By: #### 5 7021-8 ####[facility]ATORYCLIA [id number] [address] Lymphocytes/100 WBC (Bld) 18.5 % Normal [facility] Comment on above: Order Comment: Speci men Type: BLOOD SPECIMENOrdering Facility: [facility] Address: [address] [place] [address] Performed By: #### 5 7021-8 ####[facility]ORATORYCLIA [id number] [address] STATES [facility] MCH (RBC) [Entitic mass] 29.0 pg Normal 26.0-34.0 [facility] Comment on above: Order Comment: Speci men Type: BLOOD SPECIMENOrdering Facility: [facility] Address: [address] [place] [address] Performed By: #### 5 7021-8 ####[facility]ORATORYCLIA [id number] [address] STATES OF [facility] MCHC (RBC) [Mass/Vol] 31.0 g/dL Normal 30.5-36.0 [facility] Comment on above: Order Comment: Speci men Type: BLOOD SPECIMENOrdering Facility: [facility] Address: [address] [place] [address] Performed By: #### 5 7021-8 ####[facility]ATORYCLIA [id number] [address] MCV (RBC) [Entitic vol] 93.5 fL Normal 80.0-100.0 [facility] Comment on above: Order Comment: Speci men Type: BLOOD SPECIMENOrdering Facility: [facility] Address: [address] [place] [address] Performed By: #### 5 7021-8 ####[facility]ATORYCLIA [id number] [address] [place] Monocytes (Bld) [#/Vol] 0.47 10*3/uL Normal <0.87 [facility] Comment on above: Order Comment: Speci men Type: BLOOD SPECIMENOrdering Facility: [facility] Address: [address] [place] [address] Performed By: #### 5 7021-8 ####[facility]ATORYCLIA [id number] [address] Monocytes/100 WBC (Bld) 5.8 % Normal [facility] Comment on above: Order Comment: Speci men Type: BLOOD SPECIMENOrdering Facility: [facility] Address: [address] [place] [address] Performed By: #### 5 7021-8 ####[facility]ATORYCLIA [id number] [address] [place] Neutrophils (Bld) [#/Vol] 5.87 10*3/uL Normal 1.45-7.50 [facility] Comment on above: Order Comment: Speci men Type: BLOOD SPECIMENOrdering Facility: [facility] Address: [address] [place] [address] Performed By: #### 5 7021-8 ####[facility]ATORYCLIA [id number] [address] Neutrophils/100 WBC (Bld) 72.4 % Normal [facility] Comment on above: Order Comment: Speci men Type: BLOOD SPECIMENOrdering Facility: [facility] Address: [address] [place] [address] Performed By: #### 5 7021-8 ####[facility]ATORYCLIA [id number] [address] Nucleated RBC (Bld) [#/Vol] 10*3/uL Normal <0.01 [facility] Comment on above: Order Comment: Speci men Type: BLOOD SPECIMENOrdering Facility: [facility] Address: [address] [place] [address] Performed By: #### 5 7021-8 ####[facility]ATORYCLIA [id number] [address] Nucleated RBC/100 WBC (Bld) [Ratio] 0.0 /100 WBC Normal [facility] Comment on above: Order Comment: Speci men Type: BLOOD SPECIMENOrdering Facility: [facility] Address: [address] [place] [address] Performed By: #### 5 7021-8 ####[facility]ATORYCLIA [id number] [address] Platelet mean volume (Bld) [Entitic vol] 9.4 fL Normal 9.0-12.7 [facility] Comment on above: Order Comment: Speci men Type: BLOOD SPECIMENOrdering Facility: [facility] Address: [address] [place] [address] Performed By: #### 5 7021-8 ####[facility]ORATORYCLIA [id number] [address] [place] Platelets (Bld) [#/Vol] 290 10*3/uL Normal 150-400 [facility] Comment on above: Order Comment: Speci men Type: BLOOD SPECIMENOrdering Facility: [facility] Address: [address] [place] [address] Performed By: #### 5 7021-8 ####[facility]ORATORYCLIA [id number] [address] STATES OF [facility] RBC (Bld) [#/Vol] 3.24 10*6/uL Low 4.20-6.00 [facility] Comment on above: Order Comment: Speci men Type: BLOOD SPECIMENOrdering Facility: [facility] Address: [address] [place] [address] Performed By: #### 5 7021-8 ####[facility]ATORYCLIA [id number] [address] STATES OF [facility] WBC (Bld) [#/Vol] 8.10 10*3/uL Normal 3.70-11.00 [facility] Comment on above: Order Comment: Speci men Type: BLOOD SPECIMENOrdering Facility: [facility] Address: [address] [place] [address] Performed By: #### 5 7021-8 ####[facility]ORATORYCLIA [id number] [address] OF [facility] THERAPY NTon 08-15-2021 THERAPY NT Normal [facility] THERAPY NT Normal [facility] THERAPY NT Normal [facility] Basic metabolic 2000 panelon 08-14-2021 Anion gap [Moles/Vol] 10 mmol/L Normal 9-18 [facility] Comment on above: Order Comment: Speci men Type: BLOOD SPECIMENOrdering Facility: [facility] Address: [address] [place] [address] Performed By: #### 2 4321-2 ####[facility]ORATORYCLIA [id number] [address] [place] Calcium [Mass/Vol] 8.8 mg/dL Normal 8.5-10.2 [facility] Comment on above: Order Comment: Speci men Type: BLOOD SPECIMENOrdering Facility: [facility] Address: [address] [place] [address] Performed By: #### 2 4321-2 ####[facility]ORATORYCLIA [id number] [place] [address] [place] Chloride [Moles/Vol] 92 mmol/L Low 97-105 [facility] Comment on above: Order Comment: Speci men Type: BLOOD SPECIMENOrdering Facility: [facility] Address: [address] [place] [address] Performed By: #### 2 4321-2 ####[facility]ATORYCLIA [id number] [place] [address] [place] CO2 [Moles/Vol] 29 mmol/L Normal 22-30 [facility] Comment on above: Order Comment: Speci men Type: BLOOD SPECIMENOrdering Facility: [facility] Address: [address] [place] [address] Performed By: #### 2 4321-2 ####[facility]ORATORYCLIA [id number] [place] [address] [place] Creatinine [Mass/Vol] 0.49 mg/dL Low 0.73-1.22 [facility] Comment on above: Order Comment: Speci men Type: BLOOD SPECIMENOrdering Facility: [facility] Address: [address] [place] [address] Performed By: #### 2 4321-2 ####[facility]ORATORYCLIA [id number] [address] OF [facility] ESTIMATED GLOMERULAR FILTRATION RATE 111 mL/min/1.73m??? Normal >=60 [facility] Comment on above: Order Comment: Speci men Type: BLOOD SPECIMENOrdering Facility: [facility] Address: [address] [place] [address] Result Comment: Luzmaria mated Glomerular Filtration Rate [...] 2 4321-2 ####[facility]ATORYCLIA [id number] [place] [address] [place] Glucose [Mass/Vol] 104 mg/dL High 74-99 [facility] Comment on above: Order Comment: Shira feldman Type: BLOOD SPECIMENOrdering Facility: [facility] Address: [address] [id number] Result Comment: The [place] Diabetes [employer] (ADA) provides guidance for cutoff [...] Standards of Medical Care in Diabetes 2016, [place] [employer]. Diabetes Care. 2016.39(Suppl 1). Performed By: #### 2 4321-2 ####[facility]ATORYCLIA [id number] [place] [address] [place] Potassium [Moles/Vol] 3.1 mmol/L Low 3.7-5.1 [facility] Comment on above: Order Comment: Shira feldman Type: BLOOD SPECIMENOrdering Facility: [facility] Address: [address] [place] [address] Performed By: #### 2 4321-2 ####[facility]ORATORYCLIA [id number] [place] [address] [place] Sodium [Moles/Vol] 131 mmol/L Low 136-144 [facility] Comment on above: Order Comment: Shira feldman Type: BLOOD SPECIMENOrdering Facility: [facility] Address: [address] [address] Performed By: #### 2 4321-2 ####[facility]ATORYCLIA [id number] [address] STATES [facility] Urea nitrogen [Mass/Vol] 13 mg/dL Normal 9-24 [facility] Comment on above: Order Comment: Speci men Type: BLOOD SPECIMENOrdering Facility: [facility] Address: [address] [place] [address] Performed By: #### 2 4321-2 ####[facility]ATORYCLIA [id number] [address] [place] CBC W Auto Differential pane l (Bld)on 08-14-2021 Basophils (Bld) [#/Vol] 10*3/uL Normal <0.11 [facility] Comment on above: Order Comment: Speci men Type: BLOOD SPECIMENOrdering Facility: [facility] Address: [address] [place] [address] Performed By: #### 5 7021-8 ####[facility]ATORYCLIA [id number] [address] [place] Basophils/100 WBC (Bld) 0.2 % Normal [facility] Comment on above: Order Comment: Speci men Type: BLOOD SPECIMENOrdering Facility: [facility] Address: [address] [place] [address] Performed By: #### 5 7021-8 ####[facility]ATORYCLIA [id number] [address] Differential cell count method Nom (Bld) Auto Normal [facility] Comment on above: Order Comment: Speci men Type: BLOOD SPECIMENOrdering Facility: [facility] Address: [address] [place] [address] Performed By: #### 5 7021-8 ####[facility]ORATORYCLIA [id number] [place] [address] [place] Eosinophils (Bld) [#/Vol] 0.23 10*3/uL Normal <0.46 [facility] Comment on above: Order Comment: Speci men Type: BLOOD SPECIMENOrdering Facility: [facility] Address: [address] [place] [address] Performed By: #### 5 7021-8 ####[facility]ATORYCLIA [id number] [address] [place] Eosinophils/100 WBC (Bld) 2.7 % Normal [facility] Comment on above: Order Comment: Speci men Type: BLOOD SPECIMENOrdering Facility: [facility] Address: [address] [place] [address] Performed By: #### 5 7021-8 ####[facility]ATORYCLIA [id number] [address] [place] Erythrocyte distribution width (RBC) [Ratio] 16.6 % High 11.5-15.0 [facility] Comment on above: Order Comment: Speci men Type: BLOOD SPECIMENOrdering Facility: [facility] Address: [address] [place] [address] Performed By: #### 5 7021-8 ####[facility]ATORYCLIA [id number] [address] [place] Hematocrit (Bld) [Volume fraction] 28.6 % Low 39.0-51.0 [facility] Comment on above: Order Comment: Speci men Type: BLOOD SPECIMENOrdering Facility: [facility] Address: [address] [place] [address] Performed By: #### 5 7021-8 ####[facility]ATORYCLIA [id number] [address] [place] Hemoglobin (Bld) [Mass/Vol] 9.0 g/dL Low 13.0-17.0 [facility] Comment on above: Order Comment: Speci men Type: BLOOD SPECIMENOrdering Facility: [facility] Address: [address] [place] [address] Performed By: #### 5 7021-8 ####[facility]ATORYCLIA [id number] [address] IMMATURE GRAN % 0.2 % Normal [facility] Comment on above: Order Comment: Speci men Type: BLOOD SPECIMENOrdering Facility: [facility] Address: [address] [place] [address] Performed By: #### 5 7021-8 ####[facility]ATORYCLIA [id number] [address] IMMATURE GRAN ABS <0.03 Normal <0.10 [facility] Comment on above: Order Comment: Speci men Type: BLOOD SPECIMENOrdering Facility: [facility] Address: [address] [place] [address] Performed By: #### 5 7021-8 ####[facility]ATORYCLIA [id number] [address] Lymphocytes (Bld) [#/Vol] 1.33 10*3/uL Normal 1.00-4.00 [facility] Comment on above: Order Comment: Speci men Type: BLOOD SPECIMENOrdering Facility: [facility] Address: [address] [place] [address] Performed By: #### 5 7021-8 ####[facility]ATORYCLIA [id number] [address] Lymphocytes/100 WBC (Bld) 15.6 % Normal [facility] Comment on above: Order Comment: Speci men Type: BLOOD SPECIMENOrdering Facility: [facility] Address: [address] [place] [address] Performed By: #### 5 7021-8 ####[facility]ORATORYCLIA [id number] [address] STATES [facility] MCH (RBC) [Entitic mass] 29.0 pg Normal 26.0-34.0 [facility] Comment on above: Order Comment: Speci men Type: BLOOD SPECIMENOrdering Facility: [facility] Address: [address] [place] [address] Performed By: #### 5 7021-8 ####[facility]ATORYCLIA [id number] [address] [place] MCHC (RBC) [Mass/Vol] 31.5 g/dL Normal 30.5-36.0 [facility] Comment on above: Order Comment: Speci men Type: BLOOD SPECIMENOrdering Facility: [facility] Address: [address] [place] [address] Performed By: #### 5 7021-8 ####[facility]ATORYCLIA [id number] [address] MCV (RBC) [Entitic vol] 92.3 fL Normal 80.0-100.0 [facility] Comment on above: Order Comment: Speci men Type: BLOOD SPECIMENOrdering Facility: [facility] Address: [address] [place] [address] Performed By: #### 5 7021-8 ####[facility]ATORYCLIA [id number] [address] [place] Monocytes (Bld) [#/Vol] 0.44 10*3/uL Normal <0.87 [facility] Comment on above: Order Comment: Speci men Type: BLOOD SPECIMENOrdering Facility: [facility] Address: [address] [place] [address] Performed By: #### 5 7021-8 ####[facility]ATORYCLIA [id number] [address] Monocytes/100 WBC (Bld) 5.2 % Normal [facility] Comment on above: Order Comment: Speci men Type: BLOOD SPECIMENOrdering Facility: [facility] Address: [address] [place] [address] Performed By: #### 5 7021-8 ####[facility]ATORYCLIA [id number] [address] [place] Neutrophils (Bld) [#/Vol] 6.46 10*3/uL Normal 1.45-7.50 [facility] Comment on above: Order Comment: Speci men Type: BLOOD SPECIMENOrdering Facility: [facility] Address: [address] [address] Performed By: #### 5 7021-8 ####[facility]ATORYCLIA [id number] [address] Neutrophils/100 WBC (Bld) 76.1 % Normal [facility] Comment on above: Order Comment: Speci men Type: BLOOD SPECIMENOrdering Facility: [facility] Address: [address] [place] [address] Performed By: #### 5 7021-8 ####[facility]ATORYCLIA [id number] [address] Nucleated RBC (Bld) [#/Vol] 10*3/uL Normal <0.01 [facility] Comment on above: Order Comment: Speci men Type: BLOOD SPECIMENOrdering Facility: [facility] Address: [address] [place] [address] Performed By: #### 5 7021-8 ####[facility]ATORYCLIA [id number] [address] Nucleated RBC/100 WBC (Bld) [Ratio] 0.0 /100 WBC Normal [facility] Comment on above: Order Comment: Speci men Type: BLOOD SPECIMENOrdering Facility: [facility] Address: [address] [place] [address] Performed By: #### 5 7021-8 ####[facility]ATORYCLIA [id number] [address] [place] Platelet mean volume (Bld) [Entitic vol] 9.5 fL Normal 9.0-12.7 [facility] Comment on above: Order Comment: Speci men Type: BLOOD SPECIMENOrdering Facility: [facility] Address: [address] [place] [address] Performed By: #### 5 7021-8 ####[facility]ATORYCLIA [id number] [address] [place] Platelets (Bld) [#/Vol] 247 10*3/uL Normal 150-400 [facility] Comment on above: Order Comment: Speci men Type: BLOOD SPECIMENOrdering Facility: [facility] Address: [address] [place] [address] Performed By: #### 5 7021-8 ####[facility]ATORYCLIA [id number] [place] [address] [place] [facility] RBC (Bld) [#/Vol] 3.10 10*6/uL Low 4.20-6.00 [facility] Comment on above: Order Comment: Speci men Type: BLOOD SPECIMENOrdering Facility: [facility] Address: [address] [place] [address] Performed By: #### 5 7021-8 ####[facility]ATORYCLIA [id number] [address] [place] WBC (Bld) [#/Vol] 8.50 10*3/uL Normal 3.70-11.00 [facility] Comment on above: Order Comment: Speci men Type: BLOOD SPECIMENOrdering Facility: [facility] Address: [address] [place] [address] Performed By: #### 5 7021-8 ####[facility]ATORYCLIA [id number] [address] [place] CONSULTon 08-14-2021 CONSULT Normal [facility] NURSING PROGon 08-14-2021 NURSING PROG Normal [facility] CBC W Auto Differential pane l (Bld)on 08-13-2021 Basophils (Bld) [#/Vol] 10*3/uL Normal <0.11 [facility] Comment on above: Order Comment: Speci men Type: BLOOD SPECIMENOrdering Facility: [facility] Address: [address] [place] [address] Performed By: #### 5 7021-8 ####[facility]ATORYCLIA [id number] [address] [place] Basophils/100 WBC (Bld) 0.2 % Normal [facility] Comment on above: Order Comment: Speci men Type: BLOOD SPECIMENOrdering Facility: [facility] Address: [address] [place] [address] Performed By: #### 5 7021-8 ####[facility]ATORYCLIA [id number] [address] Differential cell count method Nom (Bld) Auto Normal [facility] Comment on above: Order Comment: Speci men Type: BLOOD SPECIMENOrdering Facility: [facility] Address: [address] [place] [address] Performed By: #### 5 7021-8 ####[facility]ATORYCLIA [id number] [address] Eosinophils (Bld) [#/Vol] 0.31 10*3/uL Normal <0.46 [facility] Comment on above: Order Comment: Speci men Type: BLOOD SPECIMENOrdering Facility: [facility] Address: [address] [place] [address] Performed By: #### 5 7021-8 ####[facility]ATORYCLIA [id number] [address] Eosinophils/100 WBC (Bld) 3.7 % Normal [facility] Comment on above: Order Comment: Speci men Type: BLOOD SPECIMENOrdering Facility: [facility] Address: [address] [place] [address] Performed By: #### 5 7021-8 ####[facility]ATORYCLIA [id number] [address] Erythrocyte distribution width (RBC) [Ratio] 16.6 % High 11.5-15.0 [facility] Comment on above: Order Comment: Speci men Type: BLOOD SPECIMENOrdering Facility: [facility] Address: [address] [place] [address] Performed By: #### 5 7021-8 ####[facility]ATORYCLIA [id number] [address] [place] Hematocrit (Bld) [Volume fraction] 27.5 % Low 39.0-51.0 [facility] Comment on above: Order Comment: Speci men Type: BLOOD SPECIMENOrdering Facility: [facility] Address: [address] [place] [address] Performed By: #### 5 7021-8 ####[facility]ATORYCLIA [id number] [address] Hemoglobin (Bld) [Mass/Vol] 8.4 g/dL Low 13.0-17.0 [facility] Comment on above: Order Comment: Speci men Type: BLOOD SPECIMENOrdering Facility: [facility] Address: [address] [place] [address] Performed By: #### 5 7021-8 ####[facility]ATORYCLIA [id number] [address] IMMATURE GRAN % 0.5 % Normal [facility] Comment on above: Order Comment: Speci men Type: BLOOD SPECIMENOrdering Facility: [facility] Address: [address] [place] [address] Performed By: #### 5 7021-8 ####[facility]ATORYCLIA [id number] [address] IMMATURE GRAN ABS 0.04 k/uL Normal <0.10 [facility] Comment on above: Order Comment: Speci men Type: BLOOD SPECIMENOrdering Facility: [facility] Address: [address] [place] [address] Performed By: #### 5 7021-8 ####[facility]ATORYCLIA [id number] [address] Lymphocytes (Bld) [#/Vol] 1.55 10*3/uL Normal 1.00-4.00 [facility] Comment on above: Order Comment: Speci men Type: BLOOD SPECIMENOrdering Facility: [facility] Address: [address] [place] [address] Performed By: #### 5 7021-8 ####[facility]ATORYCLIA [id number] [address] Lymphocytes/100 WBC (Bld) 18.7 % Normal [facility] Comment on above: Order Comment: Speci men Type: BLOOD SPECIMENOrdering Facility: [facility] Address: [address] [place] [address] Performed By: #### 5 7021-8 ####[facility]ATORYCLIA [id number] [address] MCH (RBC) [Entitic mass] 28.9 pg Normal 26.0-34.0 [facility] Comment on above: Order Comment: Speci men Type: BLOOD SPECIMENOrdering Facility: [facility] Address: [address] [place] [address] Performed By: #### 5 7021-8 ####[facility]ATORYCLIA [id number] [address] MCHC (RBC) [Mass/Vol] 30.5 g/dL Normal 30.5-36.0 [facility] Comment on above: Order Comment: Speci men Type: BLOOD SPECIMENOrdering Facility: [facility] Address: [address] [place] [address] Performed By: #### 5 7021-8 ####[facility]ATORYCLIA [id number] [address] MCV (RBC) [Entitic vol] 94.5 fL Normal 80.0-100.0 [facility] Comment on above: Order Comment: Speci men Type: BLOOD SPECIMENOrdering Facility: [facility] Address: [address] [place] [address] Performed By: #### 5 7021-8 ####[facility]ATORYCLIA [id number] [address] Monocytes (Bld) [#/Vol] 0.47 10*3/uL Normal <0.87 [facility] Comment on above: Order Comment: Speci men Type: BLOOD SPECIMENOrdering Facility: [facility] Address: [address] [place] [address] Performed By: #### 5 7021-8 ####[facility]ATORYCLIA [id number] [address] Monocytes/100 WBC (Bld) 5.7 % Normal [facility] Comment on above: Order Comment: Speci men Type: BLOOD SPECIMENOrdering Facility: [facility] Address: [address] [place] [address] Performed By: #### 5 7021-8 ####[facility]ATORYCLIA [id number] [address] [place] Neutrophils (Bld) [#/Vol] 5.92 10*3/uL Normal 1.45-7.50 [facility] Comment on above: Order Comment: Speci men Type: BLOOD SPECIMENOrdering Facility: [facility] Address: [address] [place] [address] Performed By: #### 5 7021-8 ####[facility]ATORYCLIA [id number] [address] Neutrophils/100 WBC (Bld) 71.2 % Normal [facility] Comment on above: Order Comment: Speci men Type: BLOOD SPECIMENOrdering Facility: [facility] Address: [address] [place] [address] Performed By: #### 5 7021-8 ####[facility]ATORYCLIA [id number] [address] [place] Nucleated RBC (Bld) [#/Vol] 10*3/uL Normal <0.01 [facility] Comment on above: Order Comment: Speci men Type: BLOOD SPECIMENOrdering Facility: [facility] Address: [address] [place] [address] Performed By: #### 5 7021-8 ####[facility]ATORYCLIA [id number] [address] [place] Nucleated RBC/100 WBC (Bld) [Ratio] 0.0 /100 WBC Normal [facility] Comment on above: Order Comment: Speci men Type: BLOOD SPECIMENOrdering Facility: [facility] Address: [address] [place] [address] Performed By: #### 5 7021-8 ####[facility]ATORYCLIA [id number] [address] [place] Platelet mean volume (Bld) [Entitic vol] 9.9 fL Normal 9.0-12.7 [facility] Comment on above: Order Comment: Speci men Type: BLOOD SPECIMENOrdering Facility: [facility] Address: [address] [place] [address] Performed By: #### 5 7021-8 ####[facility]ATORYCLIA [id number] [address] [place] Platelets (Bld) [#/Vol] 203 10*3/uL Normal 150-400 [facility] Comment on above: Order Comment: Speci men Type: BLOOD SPECIMENOrdering Facility: [facility] Address: [address] [place] [address] Performed By: #### 5 7021-8 ####[facility]ATORYCLIA [id number] [address] [place] RBC (Bld) [#/Vol] 2.91 10*6/uL Low 4.20-6.00 [facility] Comment on above: Order Comment: Speci men Type: BLOOD SPECIMENOrdering Facility: [facility] Address: [address] [place], [place] [address] Performed By: #### 5 7021-8 ####[facility]ORATORYCLIA [id number] [address] [place] WBC (Bld) [#/Vol] 8.31 10*3/uL Normal 3.70-11.00 [facility] Comment on above: Order Comment: Speci men Type: BLOOD SPECIMENOrdering Facility: [facility] Address: [address] [place] [address] Performed By: #### 5 7021-8 ####[facility]ORATORYCLIA [id number] [address] OF [facility] aPTT PPPon 08-13-2021 aPTT Coag (PPP) [Time] 69.7 s High 23.0-32.4 [facility] Comment on above: Order Comment: Speci men Type: BLOOD SPECIMENOrdering Facility: [facility] Address: [address] [place], [place] [address] Performed By: #### 1 4979-9 ####[facility]ORATORYCLIA [id number] [address] STATES OF [facility] aPTT Coag (PPP) [Time] 70.6 s High 23.0-32.4 [facility] Comment on above: Order Comment: Speci men Type: BLOOD SPECIMENOrdering Facility: [facility] Address: [address] [place], [place] [address] Performed By: #### 1 4979-9 ####[facility]ORATORYCLIA [id number] [address] [place] ALLIED HEALTHon 08-12-2021 ALLIED HEALTH Normal [facility] ALLIED HEALTH Normal [facility] Basic metabolic 2000 panelon 08-12-2021 Anion gap [Moles/Vol] 7 mmol/L Low 9-18 [facility] Comment on above: Order Comment: Speci men Type: BLOOD SPECIMENOrdering Facility: [facility] Address: [address] [place] [address] Performed By: #### 2 4321-2, , 2776-05 ####[facility]ORATORYCLIA [id number] [address] STATES OF [facility] Calcium [Mass/Vol] 8.8 mg/dL Normal 8.5-10.2 [facility] Comment on above: Order Comment: Speci men Type: BLOOD SPECIMENOrdering Facility: [facility] Address: [address] [place], [place] [address] Performed By: #### 2 4321-2, , 2776-05 ####[facility]ORATORYCLIA [id number] [place] [address] [place] Chloride [Moles/Vol] 96 mmol/L Low 97-105 [facility] Comment on above: Order Comment: Speci men Type: BLOOD SPECIMENOrdering Facility: [facility] Address: [address] [place] [address] Performed By: #### 2 4321-2, , 2776-05 ####[facility]ORATORYCLIA [id number] [address] STATES OF [facility] CO2 [Moles/Vol] 32 mmol/L High 22-30 [facility] Comment on above: Order Comment: Speci men Type: BLOOD SPECIMENOrdering Facility: [facility] Address: [address] [place] [address] Performed By: #### 2 4321-2, , 2776-05 ####[facility] LABORATORYCLIA [id number] [address] Creatinine [Mass/Vol] 0.52 mg/dL Low 0.73-1.22 [facility] Comment on above: Order Comment: Speci men Type: BLOOD SPECIMENOrdering Facility: [facility] Address: [address] [place] [address] Performed By: #### 2 4321-2, , 2776-05 ####[facility] LABORATORYCLIA [id number] [address] ESTIMATED GLOMERULAR FILTRATION RATE 109 mL/min/1.73m??? Normal >=60 [facility] Comment on above: Order Comment: Speci men Type: BLOOD SPECIMENOrdering Facility: [facility] Address: [address] [place] [address] Result Comment: Luzmaria mated Glomerular Filtration Rate [...] , 2776-05 ####[facility]ATORYCLIA [id number] [place] [address] [place] Glucose [Mass/Vol] 119 mg/dL High 74-99 [facility] Comment on above: Order Comment: Shira feldman Type: BLOOD SPECIMENOrdering Facility: [facility] Address: [address] [place], [place] [address] Result Comment: The [place] Diabetes [employer] (ADA) provides guidance for cutoff [...] Standards of Medical Care in Diabetes 2016, [place] [employer]. Diabetes Care. 2016.39(Suppl 1). Performed By: #### 2 4321-2, , 2776-05 ####[facility]ATORYCLIA [id number] [place] [address] [place] Potassium [Moles/Vol] 3.7 mmol/L Normal 3.7-5.1 [facility] Comment on above: Order Comment: Shira feldman Type: BLOOD SPECIMENOrdering Facility: [facility] Address: [address] [place] [address] Performed By: #### 2 4321-2, , 2776-05 ####[facility]ATORYCLIA [id number] [place] [address] [place] Sodium [Moles/Vol] 135 mmol/L Low 136-144 [facility] Comment on above: Order Comment: Shira feldman Type: BLOOD SPECIMENOrdering Facility: [facility] Address: [address] [place] [address] Performed By: #### 2 4321-2, 72754-4, 2771 ####[facility]ATORYCLIA [id number] [address] STATES [facility] Urea nitrogen [Mass/Vol] 20 mg/dL Normal 9-24 [facility] Comment on above: Order Comment: Speci men Type: BLOOD SPECIMENOrdering Facility: [facility] Address: [address] [place] [address] Performed By: #### 2 4321-2, , 27711-04 ####[facility]ATORYCLIA [id number] [address] CASE MANAGEMon 08-12-2021 CASE MANAGEM Normal [facility] CBC W Auto Differential pane l (Bld)on 08-12-2021 Basophils (Bld) [#/Vol] 0.04 10*3/uL Normal <0.11 [facility] Comment on above: Order Comment: Speci men Type: BLOOD SPECIMENOrdering Facility: [facility] Address: [address] [place] [address] Performed By: #### 5 7021-8 ####[facility]ATORYCLIA [id number] [address] [place] Basophils/100 WBC (Bld) 0.5 % Normal [facility] Comment on above: Order Comment: Speci men Type: BLOOD SPECIMENOrdering Facility: [facility] Address: [address] [place] [address] Performed By: #### 5 7021-8 ####[facility]ATORYCLIA [id number] [address] STATES [facility] Differential cell count method Nom (Bld) Auto Normal [facility] Comment on above: Order Comment: Speci men Type: BLOOD SPECIMENOrdering Facility: [facility] Address: [address] [place] [address] Performed By: #### 5 7021-8 ####[facility]ATORYCLIA [id number] [address] [place] Eosinophils (Bld) [#/Vol] 0.19 10*3/uL Normal <0.46 [facility] Comment on above: Order Comment: Speci men Type: BLOOD SPECIMENOrdering Facility: [facility] Address: [address] [place] [address] Performed By: #### 5 7021-8 ####[facility]ATORYCLIA [id number] [address] [place] Eosinophils/100 WBC (Bld) 2.3 % Normal [facility] Comment on above: Order Comment: Speci men Type: BLOOD SPECIMENOrdering Facility: [facility] Address: [address] [place] [address] Performed By: #### 5 7021-8 ####[facility]ATORYCLIA [id number] [address] STATES [facility] Erythrocyte distribution width (RBC) [Ratio] 17.1 % High 11.5-15.0 [facility] Comment on above: Order Comment: Speci men Type: BLOOD SPECIMENOrdering Facility: [facility] Address: [address] [place] [address] Performed By: #### 5 7021-8 ####[facility]ATORYCLIA [id number] [address] [place] Hematocrit (Bld) [Volume fraction] 25.3 % Low 39.0-51.0 [facility] Comment on above: Order Comment: Speci men Type: BLOOD SPECIMENOrdering Facility: [facility] Address: [address] [place] [address] Performed By: #### 5 7021-8 ####[facility]ATORYCLIA [id number] [address] [place] Hemoglobin (Bld) [Mass/Vol] 7.9 g/dL Low 13.0-17.0 [facility] Comment on above: Order Comment: Speci men Type: BLOOD SPECIMENOrdering Facility: [facility] Address: [address] [place] [address] Performed By: #### 5 7021-8 ####[facility]ATORYCLIA [id number] [address] IMMATURE GRAN % 0.5 % Normal [facility] Comment on above: Order Comment: Speci men Type: BLOOD SPECIMENOrdering Facility: [facility] Address: [address] [place] [address] Performed By: #### 5 7021-8 ####[facility]ATORYCLIA [id number] [address] IMMATURE GRAN ABS 0.04 k/uL Normal <0.10 [facility] Comment on above: Order Comment: Speci men Type: BLOOD SPECIMENOrdering Facility: [facility] Address: [address] [place] [address] Performed By: #### 5 7021-8 ####[facility]ATORYCLIA [id number] [address] Lymphocytes (Bld) [#/Vol] 1.69 10*3/uL Normal 1.00-4.00 [facility] Comment on above: Order Comment: Speci men Type: BLOOD SPECIMENOrdering Facility: [facility] Address: [address] [place] [address] Performed By: #### 5 7021-8 ####[facility]ORATORYCLIA [id number] [address] Lymphocytes/100 WBC (Bld) 20.1 % Normal [facility] Comment on above: Order Comment: Speci men Type: BLOOD SPECIMENOrdering Facility: [facility] Address: [address] [place] [address] Performed By: #### 5 7021-8 ####[facility]ORATORYCLIA [id number] [address] [place] MCH (RBC) [Entitic mass] 28.5 pg Normal 26.0-34.0 [facility] Comment on above: Order Comment: Speci men Type: BLOOD SPECIMENOrdering Facility: [facility] Address: [address] [place] [address] Performed By: #### 5 7021-8 ####[facility]ORATORYCLIA [id number] [address] [place] MCHC (RBC) [Mass/Vol] 31.2 g/dL Normal 30.5-36.0 [facility] Comment on above: Order Comment: Speci men Type: BLOOD SPECIMENOrdering Facility: [facility] Address: [address] [place] [address] Performed By: #### 5 7021-8 ####[facility]ORATORYCLIA [id number] [address] [place] MCV (RBC) [Entitic vol] 91.3 fL Normal 80.0-100.0 [facility] Comment on above: Order Comment: Speci men Type: BLOOD SPECIMENOrdering Facility: [facility] Address: [address] [place] [address] Performed By: #### 5 7021-8 ####[facility]ATORYCLIA [id number] [address] [place] Monocytes (Bld) [#/Vol] 0.53 10*3/uL Normal <0.87 [facility] Comment on above: Order Comment: Speci men Type: BLOOD SPECIMENOrdering Facility: [facility] Address: [address] [place] [address] Performed By: #### 5 7021-8 ####[facility]ATORYCLIA [id number] [address] Monocytes/100 WBC (Bld) 6.3 % Normal [facility] Comment on above: Order Comment: Speci men Type: BLOOD SPECIMENOrdering Facility: [facility] Address: [address] [place] [address] Performed By: #### 5 7021-8 ####[facility]ATORYCLIA [id number] [address] [place] Neutrophils (Bld) [#/Vol] 5.90 10*3/uL Normal 1.45-7.50 [facility] Comment on above: Order Comment: Speci men Type: BLOOD SPECIMENOrdering Facility: [facility] Address: [address] [place] [address] Performed By: #### 5 7021-8 ####[facility]ORATORYCLIA [id number] [address] [place] Neutrophils/100 WBC (Bld) 70.3 % Normal [facility] Comment on above: Order Comment: Speci men Type: BLOOD SPECIMENOrdering Facility: [facility] Address: [address] [place] [address] Performed By: #### 5 7021-8 ####[facility]ATORYCLIA [id number] [address] [place] Nucleated RBC (Bld) [#/Vol] 10*3/uL Normal <0.01 [facility] Comment on above: Order Comment: Speci men Type: BLOOD SPECIMENOrdering Facility: [facility] Address: [address] [place] [address] Performed By: #### 5 7021-8 ####[facility]ATORYCLIA [id number] [address] [place] Nucleated RBC/100 WBC (Bld) [Ratio] 0.0 /100 WBC Normal [facility] Comment on above: Order Comment: Speci men Type: BLOOD SPECIMENOrdering Facility: [facility] Address: [address] [place] [address] Performed By: #### 5 7021-8 ####[facility]ATORYCLIA [id number] [address] [place] Platelet mean volume (Bld) [Entitic vol] 9.8 fL Normal 9.0-12.7 [facility] Comment on above: Order Comment: Speci men Type: BLOOD SPECIMENOrdering Facility: [facility] Address: [address] [place] [address] Performed By: #### 5 7021-8 ####[facility]ATORYCLIA [id number] [address] Platelets (Bld) [#/Vol] 164 10*3/uL Normal 150-400 [facility] Comment on above: Order Comment: Speci men Type: BLOOD SPECIMENOrdering Facility: [facility] Address: [address] [place] [address] Performed By: #### 5 7021-8 ####[facility]ATORYCLIA [id number] [address] [place] RBC (Bld) [#/Vol] 2.77 10*6/uL Low 4.20-6.00 [facility] Comment on above: Order Comment: Speci men Type: BLOOD SPECIMENOrdering Facility: [facility] Address: [address] [place] [address] Performed By: #### 5 7021-8 ####[facility]ATORYCLIA [id number] [address] WBC (Bld) [#/Vol] 8.39 10*3/uL Normal 3.70-11.00 [facility] Comment on above: Order Comment: Speci men Type: BLOOD SPECIMENOrdering Facility: [facility] Address: [address] [place] [address] Performed By: #### 5 7021-8 ####[facility]ATORYCLIA [id number] [address] BRAIN WO IVCONon 08-13-19 CT BRAIN WO IVCON Normal [facility] CT BRAIN WO IVCON Normal [facility] Magnesium SerPl-mCncon 08-12 Magnesium [Mass/Vol] 2.0 mg/dL Normal 1.7-2.3 [facility] Comment on above: Order Comment: Speci men Type: BLOOD SPECIMENOrdering Facility: [facility] Address: [address] [place] [address] Performed By: #### 2 4321-2, 39604-7, 2777-1 ####[facility]ATORYCLIA [id number] [address] Phosphate SerPl-mCncon 08-12 Phosphate [Mass/Vol] 2.9 mg/dL Normal 2.7-4.8 [facility] Comment on above: Order Comment: Speci men Type: BLOOD SPECIMENOrdering Facility: [facility] Address: [address] [place] [address] Performed By: #### 2 4321-2, 16003-2, 2777-1 ####[facility]ATORYCLIA [id number] [address] THERAPY NTon 08-12-2021 THERAPY NT Normal [facility] THERAPY NT Normal [facility] aPTT PPPon 08-12-2021 aPTT Coag (PPP) [Time] 94.2 s High 23.0-32.4 [facility] Comment on above: Order Comment: Speci men Type: BLOOD SPECIMENOrdering Facility: [facility] Address: [address] [place] [address] Performed By: #### 1 4979-9 ####[facility]ATORYCLIA [id number] [address] aPTT Coag (PPP) [Time] 84.4 s High 23.0-32.4 [facility] Comment on above: Order Comment: Speci men Type: BLOOD SPECIMENOrdering Facility: [facility] Address: [address] [place] [address] Performed By: #### 1 4979-9 ####[facility]ATORYCLIA [id number] [address] aPTT Coag (PPP) [Time] 71.3 s High 23.0-32.4 [facility] Comment on above: Order Comment: Speci men Type: BLOOD SPECIMENOrdering Facility: [facility] Address: [address] [place] [address] Performed By: #### 1 4979-9 ####[facility]ATORYCLIA [id number] [address] [place] ALLIED HEALTHon 08-11-2021 ALLIED HEALTH Normal [facility] CBC W Auto Differential pane l (Bld)on 08-11-2021 Basophils (Bld) [#/Vol] 10*3/uL Normal <0.11 [facility] Comment on above: Order Comment: Speci men Type: BLOOD SPECIMENOrdering Facility: [facility] Address: [address] [place] [address] Performed By: #### 5 7021-8 ####[facility]ATORYCLIA [id number] [address] Basophils/100 WBC (Bld) 0.2 % Normal [facility] Comment on above: Order Comment: Speci men Type: BLOOD SPECIMENOrdering Facility: [facility] Address: [address] [place] [address] Performed By: #### 5 7021-8 ####[facility]ATORYCLIA [id number] [address] Differential cell count method Nom (Bld) Auto Normal [facility] Comment on above: Order Comment: Speci men Type: BLOOD SPECIMENOrdering Facility: [facility] Address: [address] [place] [address] Performed By: #### 5 7021-8 ####[facility]ATORYCLIA [id number] [address] [place] Eosinophils (Bld) [#/Vol] 0.16 10*3/uL Normal <0.46 [facility] Comment on above: Order Comment: Speci men Type: BLOOD SPECIMENOrdering Facility: [facility] Address: [address] [place] [address] Performed By: #### 5 7021-8 ####[facility]ATORYCLIA [id number] [address] [place] Eosinophils/100 WBC (Bld) 1.8 % Normal [facility] Comment on above: Order Comment: Speci men Type: BLOOD SPECIMENOrdering Facility: [facility] Address: [address] [place] [address] Performed By: #### 5 7021-8 ####[facility]ATORYCLIA [id number] [address] Erythrocyte distribution width (RBC) [Ratio] 17.3 % High 11.5-15.0 [facility] Comment on above: Order Comment: Speci men Type: BLOOD SPECIMENOrdering Facility: [facility] Address: [address] [place] [address] Performed By: #### 5 7021-8 ####[facility]ATORYCLIA [id number] [address] Hematocrit (Bld) [Volume fraction] 26.6 % Low 39.0-51.0 [facility] Comment on above: Order Comment: Speci men Type: BLOOD SPECIMENOrdering Facility: [facility] Address: [address] [place] [address] Performed By: #### 5 7021-8 ####[facility]ATORYCLIA [id number] [address] Hemoglobin (Bld) [Mass/Vol] 8.2 g/dL Low 13.0-17.0 [facility] Comment on above: Order Comment: Speci men Type: BLOOD SPECIMENOrdering Facility: [facility] Address: [address] [place] [address] Performed By: #### 5 7021-8 ####[facility]ATORYCLIA [id number] [address] IMMATURE GRAN % 0.6 % Normal [facility] Comment on above: Order Comment: Speci men Type: BLOOD SPECIMENOrdering Facility: [facility] Address: [address] [place] [address] Performed By: #### 5 7021-8 ####[facility]ATORYCLIA [id number] [address] IMMATURE GRAN ABS 0.05 k/uL Normal <0.10 [facility] Comment on above: Order Comment: Speci men Type: BLOOD SPECIMENOrdering Facility: [facility] Address: [address] [place] [address] Performed By: #### 5 7021-8 ####[facility]ATORYCLIA [id number] [address] [place] Lymphocytes (Bld) [#/Vol] 1.40 10*3/uL Normal 1.00-4.00 [facility] Comment on above: Order Comment: Speci men Type: BLOOD SPECIMENOrdering Facility: [facility] Address: [address] [place] [address] Performed By: #### 5 7021-8 ####[facility]ATORYCLIA [id number] [address] Lymphocytes/100 WBC (Bld) 15.8 % Normal [facility] Comment on above: Order Comment: Speci men Type: BLOOD SPECIMENOrdering Facility: [facility] Address: [address] [place] [address] Performed By: #### 5 7021-8 ####[facility]ATORYCLIA [id number] [address] MCH (RBC) [Entitic mass] 28.4 pg Normal 26.0-34.0 [facility] Comment on above: Order Comment: Speci men Type: BLOOD SPECIMENOrdering Facility: [facility] Address: [address] [place] [address] Performed By: #### 5 7021-8 ####[facility]ATORYCLIA [id number] [address] MCHC (RBC) [Mass/Vol] 30.8 g/dL Normal 30.5-36.0 [facility] Comment on above: Order Comment: Speci men Type: BLOOD SPECIMENOrdering Facility: [facility] Address: [address] [address] Performed By: #### 5 7021-8 ####[facility]ATORYCLIA [id number] [address] [place] MCV (RBC) [Entitic vol] 92.0 fL Normal 80.0-100.0 [facility] Comment on above: Order Comment: Speci men Type: BLOOD SPECIMENOrdering Facility: [facility] Address: [address] [place] [address] Performed By: #### 5 7021-8 ####[facility]ATORYCLIA [id number] [address] [place] Monocytes (Bld) [#/Vol] 0.61 10*3/uL Normal <0.87 [facility] Comment on above: Order Comment: Speci men Type: BLOOD SPECIMENOrdering Facility: [facility] Address: [address] [place] [address] Performed By: #### 5 7021-8 ####[facility]ATORYCLIA [id number] [address] STATES [facility] Monocytes/100 WBC (Bld) 6.9 % Normal [facility] Comment on above: Order Comment: Speci men Type: BLOOD SPECIMENOrdering Facility: [facility] Address: [address] [place] [address] Performed By: #### 5 7021-8 ####[facility]ATORYCLIA [id number] [address] [place] Neutrophils (Bld) [#/Vol] 6.62 10*3/uL Normal 1.45-7.50 [facility] Comment on above: Order Comment: Speci men Type: BLOOD SPECIMENOrdering Facility: [facility] Address: [address] [place] [address] Performed By: #### 5 7021-8 ####[facility]ATORYCLIA [id number] [address] [place] Neutrophils/100 WBC (Bld) 74.7 % Normal [facility] Comment on above: Order Comment: Speci men Type: BLOOD SPECIMENOrdering Facility: [facility] Address: [address] [address] Performed By: #### 5 7021-8 ####[facility]ATORYCLIA [id number] [address] [place] Nucleated RBC (Bld) [#/Vol] 10*3/uL Normal <0.01 [facility] Comment on above: Order Comment: Speci men Type: BLOOD SPECIMENOrdering Facility: [facility] Address: [address] [place] [address] Performed By: #### 5 7021-8 ####[facility]ATORYCLIA [id number] [address] [place] Nucleated RBC/100 WBC (Bld) [Ratio] 0.0 /100 WBC Normal [facility] Comment on above: Order Comment: Speci men Type: BLOOD SPECIMENOrdering Facility: [facility] Address: [address] [place] [address] Performed By: #### 5 7021-8 ####[facility]ATORYCLIA [id number] [address] [place] Platelet mean volume (Bld) [Entitic vol] 9.8 fL Normal 9.0-12.7 [facility] Comment on above: Order Comment: Speci men Type: BLOOD SPECIMENOrdering Facility: [facility] Address: [address] [place], [place] [id number] Performed By: #### 5 7021-8 ####[facility]ATORYCLIA [id number] [address] [place] Platelets (Bld) [#/Vol] 157 10*3/uL Normal 150-400 [facility] Comment on above: Order Comment: Speci men Type: BLOOD SPECIMENOrdering Facility: [facility] Address: [address] [place] [address] Performed By: #### 5 7021-8 ####[facility]ATORYCLIA [id number] [address] OF [facility] RBC (Bld) [#/Vol] 2.89 10*6/uL Low 4.20-6.00 [facility] Comment on above: Order Comment: Speci men Type: BLOOD SPECIMENOrdering Facility: [facility] Address: [address] [place] [address] Performed By: #### 5 7021-8 ####[facility]ATORYCLIA [id number] [address] OF [facility] WBC (Bld) [#/Vol] 8.86 10*3/uL Normal 3.70-11.00 [facility] Comment on above: Order Comment: Speci men Type: BLOOD SPECIMENOrdering Facility: [facility] Address: [address] [place] [address] Performed By: #### 5 7021-8 ####[facility] LABORATORYCLIA [id number] [address] CBC panel Auto (Bld)on 08-11 Erythrocyte distribution width (RBC) [Ratio] 17.2 % High 11.5-15.0 [facility] Comment on above: Order Comment: Speci men Type: BLOOD SPECIMENOrdering Facility: [facility] Address: [address] [place] [address] Performed By: #### 5 8410-2 ####[facility] LABORATORYCLIA [id number] [address] Hematocrit (Bld) [Volume fraction] 27.0 % Low 39.0-51.0 [facility] [facility] Comment on above: Order Comment: Speci men Type: BLOOD SPECIMENOrdering Facility: [facility] Address: [address] [place] [address] Performed By: #### 5 8410-2 ####[facility]ATORYCLIA [id number] [address] OF [facility] Hemoglobin (Bld) [Mass/Vol] 8.3 g/dL Low 13.0-17.0 [facility] Comment on above: Order Comment: Speci men Type: BLOOD SPECIMENOrdering Facility: [facility] Address: [address] [place] [address] Performed By: #### 5 8410-2 ####[facility]ATORYCLIA [id number] [address] MCH (RBC) [Entitic mass] 28.7 pg Normal 26.0-34.0 [facility] Comment on above: Order Comment: Speci men Type: BLOOD SPECIMENOrdering Facility: [facility] Address: [address] [place] [address] Performed By: #### 5 8410-2 ####[facility]ATORYCLIA [id number] [address] MCHC (RBC) [Mass/Vol] 30.7 g/dL Normal 30.5-36.0 [facility] Comment on above: Order Comment: Speci men Type: BLOOD SPECIMENOrdering Facility: [facility] Address: [address] [place] [address] Performed By: #### 5 8410-2 ####[facility]ATORYCLIA [id number] [address] MCV (RBC) [Entitic vol] 93.4 fL Normal 80.0-100.0 [facility] Comment on above: Order Comment: Speci men Type: BLOOD SPECIMENOrdering Facility: [facility] Address: [address] [place] [address] Performed By: #### 5 8410-2 ####[facility]ATORYCLIA [id number] [address] Nucleated RBC (Bld) [#/Vol] 10*3/uL Normal <0.01 [facility] Comment on above: Order Comment: Speci men Type: BLOOD SPECIMENOrdering Facility: [facility] Address: [address] [place] [address] Performed By: #### 5 8410-2 ####[facility]ATORYCLIA [id number] [address] Platelet mean volume (Bld) [Entitic vol] 9.8 fL Normal 9.0-12.7 [facility] Comment on above: Order Comment: Speci men Type: BLOOD SPECIMENOrdering Facility: [facility] Address: [address] [place] [address] Performed By: #### 5 8410-2 ####[facility]ORATORYCLIA [id number] [address] [place] Platelets (Bld) [#/Vol] 169 10*3/uL Normal 150-400 [facility] Comment on above: Order Comment: Speci men Type: BLOOD SPECIMENOrdering Facility: [facility] Address: [address] [place] [address] Performed By: #### 5 8410-2 ####[facility]ATORYCLIA [id number] [address] STATES OF [facility] RBC (Bld) [#/Vol] 2.89 10*6/uL Low 4.20-6.00 [facility] Comment on above: Order Comment: Speci men Type: BLOOD SPECIMENOrdering Facility: [facility] Address: [address] [place] [address] Performed By: #### 5 8410-2 ####[facility]ORATORYCLIA [id number] [address] [place] WBC (Bld) [#/Vol] 9.03 10*3/uL Normal 3.70-11.00 [facility] Comment on above: Order Comment: Speci men Type: BLOOD SPECIMENOrdering Facility: [facility] Address: [address] [place] [address] Performed By: #### 5 8410-2 ####[facility]ORATORYCLIA [id number] [address] [facility] CT BRAIN WO IVCONon 08-12-19 CT BRAIN WO IVCON Normal [facility] PT panel Coag (PPP)on 2021 INR Coag (PPP) [Relative time] 1.0 {INR} Normal 0.9-1.3 [facility] Comment on above: Order Comment: Shira feldman Type: BLOOD SPECIMENOrdering Facility: [facility] Address: [address] [id number] Result Comment: Yris min K Antagonist (VKA) Therapeutic Range: INR 2 to 3 (Target INR of 2.5)Note: For patients treated with VKA drugs, such as warfarin, the [employer] 2012 Guideline recommends [...] al. Chest 2012, 141:7S-47SNishimpatricia RA, et al. [facility] 2017, 70: 252-289 Performed By: #### 1 4979-9, 73713-4 ####[facility]ATORYCLIA [id number] [place] [address] [place] PT Coag (PPP) [Time] 11.4 s Normal 9.7-13.0 [facility] Comment on above: Order Comment: Shira feldman Type: BLOOD SPECIMENOrdering Facility: [facility] Address: [address] [place] [address] Performed By: #### 1 4979-9, 43805-5 ####[facility]ORATORYCLIA [id number] [place] [address] [place] THERAPY NTon 08-11-2021 THERAPY NT Normal [facility] US DVT LOWER BILon 2 US DVT LOWER RAINER Normal [facility] US DVT UPPER BILon 2 US DVT UPPER RAINER Normal [facility] aPTT PPPon 08-11-2021 aPTT Coag (PPP) [Time] 26.9 s Normal 23.0-32.4 [facility] Comment on above: Order Comment: Speci men Type: BLOOD SPECIMENOrdering Facility: [facility] Address: [address] [place] [address] Performed By: #### 1 4979-9, 17151-9 ####[facility]ATORYCLIA [id number] [place] [address] [place] Basic metabolic 2000 panelon 08-10-2021 Anion gap [Moles/Vol] 11 mmol/L Normal 9-18 [facility] Comment on above: Order Comment: Speci men Type: BLOOD SPECIMENOrdering Facility: [facility] Address: [address] [place] [address] Performed By: #### 2 4321-2 ####[facility]ORATORYCLIA [id number] [place] [address] [place] Calcium [Mass/Vol] 8.7 mg/dL Normal 8.5-10.2 [facility] Comment on above: Order Comment: Speci men Type: BLOOD SPECIMENOrdering Facility: [facility] Address: [address] [place] [address] Performed By: #### 2 4321-2 ####[facility]ATORYCLIA [id number] [place] [address] [place] Chloride [Moles/Vol] 98 mmol/L Normal 97-105 [facility] Comment on above: Order Comment: Speci men Type: BLOOD SPECIMENOrdering Facility: [facility] Address: [address] [place] [address] Performed By: #### 2 4321-2 ####[facility]ATORYCLIA [id number] [place] [address] [place] CO2 [Moles/Vol] 28 mmol/L Normal 22-30 [facility] Comment on above: Order Comment: Speci men Type: BLOOD SPECIMENOrdering Facility: [facility] Address: [address] [place] [address] Performed By: #### 2 4321-2 ####[facility]ORATORYCLIA [id number] [address] STATES OF [facility] Creatinine [Mass/Vol] 0.59 mg/dL Low 0.73-1.22 [facility] Comment on above: Order Comment: Shira feldman Type: BLOOD SPECIMENOrdering Facility: [facility] Address: [address] [place] [address] Performed By: #### 2 4321-2 ####[facility]ORATORYCLIA [id number] [address] ESTIMATED GLOMERULAR FILTRATION RATE 105 mL/min/1.73m??? Normal >=60 [facility] Comment on above: Order Comment: Shira feldman Type: BLOOD SPECIMENOrdering Facility: [facility] Address: [address] [place] [address] Result Comment: Luzmaria mated Glomerular Filtration Rate [...] 2 4321-2 ####[facility]ORATORYCLIA [id number] [address] STATES OF [facility] Glucose [Mass/Vol] 118 mg/dL High 74-99 [facility] Comment on above: Order Comment: Shira francia Type: BLOOD SPECIMENOrdering Facility: [facility] Address: [address] [place] [address] Result Comment: The [employer] (ADA) provides guidance for cutoff [...] Standards of Medical Care in Diabetes 2016, [employer]. Diabetes Care. 2016.39(Suppl 1). Performed By: #### 2 4321-2 ####[facility]ORATORYCLIA [id number] [place] [address] [place] Potassium [Moles/Vol] 3.7 mmol/L Normal 3.7-5.1 [facility] Comment on above: Order Comment: Speci men Type: BLOOD SPECIMENOrdering Facility: [facility] Address: [address] [place] [address] Performed By: #### 2 4321-2 ####[facility]ORATORYCLIA [id number] [place] [address] [place] Sodium [Moles/Vol] 137 mmol/L Normal 136-144 [facility] Comment on above: Order Comment: Speci men Type: BLOOD SPECIMENOrdering Facility: [facility] Address: [address] [place] [address] Performed By: #### 2 4321-2 ####[facility]ORATORYCLIA [id number] [place] [address] [place] Urea nitrogen [Mass/Vol] 23 mg/dL Normal 9-24 [facility] Comment on above: Order Comment: Speci men Type: BLOOD SPECIMENOrdering Facility: [facility] Address: [address] [place] [address] Performed By: #### 2 4321-2 ####[facility]ORATORYCLIA [id number] [place] [address] [place] Anion gap [Moles/Vol] 17 mmol/L Normal 9-18 [facility] Comment on above: Order Comment: Speci men Type: BLOOD SPECIMENOrdering Facility: [facility] Address: [address] [place] [address] Performed By: #### 1 9123-9, 2777-1, 03506-8 ####[facility]ATORYCLIA [id number] [place] [address] [place] Calcium [Mass/Vol] 7.7 mg/dL Low 8.5-10.2 [facility] Comment on above: Order Comment: Speci men Type: BLOOD SPECIMENOrdering Facility: [facility] Address: [address] [place] [address] Performed By: #### 1 9123-9, 27711-04, 22774-2 ####[facility]ATORYCLIA [id number] [place] [address] [place] Chloride [Moles/Vol] 86 mmol/L Low 97-105 [facility] Comment on above: Order Comment: Speci men Type: BLOOD SPECIMENOrdering Facility: [facility] Address: [address] [place] [address] Performed By: #### 1 9123-9, 27711-04, 37288-8 ####[facility]ATORYCLIA [id number] [address] [place] CO2 [Moles/Vol] 24 mmol/L Normal 22-30 [facility] Comment on above: Order Comment: Speci men Type: BLOOD SPECIMENOrdering Facility: [facility] Address: [address] [place] [address] Performed By: #### 1 9123-9, 27711-04, 69850-4 ####[facility]ATORYCLIA [id number] [place] [address] [place] Creatinine [Mass/Vol] 0.53 mg/dL Low 0.73-1.22 [facility] Comment on above: Order Comment: Speci men Type: BLOOD SPECIMENOrdering Facility: [facility] Address: [address] [place] [address] Performed By: #### 1 9123-9, 27711-04, 49012-8 ####[facility]ATORYCLIA [id number] [address] [place] ESTIMATED GLOMERULAR FILTRATION RATE 108 mL/min/1.73m??? Normal >=60 [facility] Comment on above: Order Comment: Shira feldman Type: BLOOD SPECIMENOrdering Facility: [facility] Address: [address] [place] [address] Result Comment: Luzmaria mated Glomerular Filtration Rate [...] GFR. Performed By: #### 1 9123-9, 2777-1, 03181-0 ####[facility]ENTERCLIA [id number] [place] [address] [place] Glucose [Mass/Vol] 455 mg/dL High 74-99 [facility] Comment on above: Order Comment: Shira feldman Type: BLOOD SPECIMENOrdering Facility: [facility] Address: [address] [place] [address] Result Comment: The [place] Diabetes [employer] (ADA) provides guidance for cutoff [...] Standards of Medical Care in Diabetes 2016, [place] [employer]. Diabetes Care. 2016.39(Suppl 1). Performed By: #### 1 9123-9, 2777-1, 56684-4 ####[facility]ATORYCLIA [id number] [place] [address] [place] Potassium [Moles/Vol] 3.4 mmol/L Low 3.7-5.1 [facility] Comment on above: Order Comment: Shira [facility] Type: BLOOD SPECIMENOrdering Facility: [facility] Address: [address] [place] [address] Performed By: #### 1 9123-9, 2777-1, 57307-1 ####[facility]ORATORYCLIA [id number] [address] [place] Sodium [Moles/Vol] 127 mmol/L Low 136-144 [facility] Comment on above: Order Comment: Speci men Type: BLOOD SPECIMENOrdering Facility: [facility] Address: [address] [place] [address] Performed By: #### 1 9123-9, 2777-1, 53228-1 ####[facility]ATORYCLIA [id number] [address] [place] Urea nitrogen [Mass/Vol] 21 mg/dL Normal 9-24 [facility] Comment on above: Order Comment: Speci men Type: BLOOD SPECIMENOrdering Facility: [facility] Address: [address] [place] [address] Performed By: #### 1 9123-9, 2777-, 59337-8 ####[facility]ORATORYCLIA [id number] [address] [place] CASE MANAGEMon 08-10-2021 CASE MANAGEM Normal [facility] CBC W Auto Differential pane l (Bld)on 08-10-2021 Basophils (Bld) [#/Vol] 0.04 10*3/uL Normal <0.11 [facility] Comment on above: Order Comment: Speci men Type: BLOOD SPECIMENOrdering Facility: [facility] Address: [address] [place] [address] Performed By: #### 5 7021-8 ####[facility]ATORYCLIA [id number] [address] [place] Basophils/100 WBC (Bld) 0.4 % Normal [facility] Comment on above: Order Comment: Speci men Type: BLOOD SPECIMENOrdering Facility: [facility] Address: [address] [place] [address] Performed By: #### 5 7021-8 ####[facility]ATORYCLIA [id number] [address] Differential cell count method Nom (Bld) Auto Normal [facility] Comment on above: Order Comment: Speci men Type: BLOOD SPECIMENOrdering Facility: [facility] Address: [address] [place] [address] Performed By: #### 5 7021-8 ####[facility]ATORYCLIA [id number] [address] Eosinophils (Bld) [#/Vol] 0.11 10*3/uL Normal <0.46 [facility] Comment on above: Order Comment: Speci men Type: BLOOD SPECIMENOrdering Facility: [facility] Address: [address] [place] [address] Performed By: #### 5 7021-8 ####[facility]ATORYCLIA [id number] [address] Eosinophils/100 WBC (Bld) 1.1 % Normal [facility] Comment on above: Order Comment: Speci men Type: BLOOD SPECIMENOrdering Facility: [facility] Address: [address] [place] [address] Performed By: #### 5 7021-8 ####[facility]ORATORYCLIA [id number] [address] Erythrocyte distribution width (RBC) [Ratio] 17.2 % High 11.5-15.0 [facility] Comment on above: Order Comment: Speci men Type: BLOOD SPECIMENOrdering Facility: [facility] Address: [address] [place] [address] Performed By: #### 5 7021-8 ####[facility]ATORYCLIA [id number] [address] Hematocrit (Bld) [Volume fraction] 25.5 % Low 39.0-51.0 [facility] Comment on above: Order Comment: Speci men Type: BLOOD SPECIMENOrdering Facility: [facility] Address: [address] [place] [address] Performed By: #### 5 7021-8 ####[facility]ATORYCLIA [id number] [address] Hemoglobin (Bld) [Mass/Vol] 7.9 g/dL Low 13.0-17.0 [facility] Comment on above: Order Comment: Speci men Type: BLOOD SPECIMENOrdering Facility: [facility] Address: [address] [place] [address] Performed By: #### 5 7021-8 ####[facility]ATORYCLIA [id number] [address] IMMATURE GRAN % 0.4 % Normal [facility] Comment on above: Order Comment: Speci men Type: BLOOD SPECIMENOrdering Facility: [facility] Address: [address] [place] [address] Performed By: #### 5 7021-8 ####[facility]ATORYCLIA [id number] [address] IMMATURE GRAN ABS 0.04 k/uL Normal <0.10 [facility] Comment on above: Order Comment: Speci men Type: BLOOD SPECIMENOrdering Facility: [facility] Address: [address] [place] [address] Performed By: #### 5 7021-8 ####[facility]ATORYCLIA [id number] [address] Lymphocytes (Bld) [#/Vol] 1.66 10*3/uL Normal 1.00-4.00 [facility] Comment on above: Order Comment: Speci men Type: BLOOD SPECIMENOrdering Facility: [facility] Address: [address] [place] [address] Performed By: #### 5 7021-8 ####[facility]ATORYCLIA [id number] [address] Lymphocytes/100 WBC (Bld) 16.2 % Normal [facility] Comment on above: Order Comment: Speci men Type: BLOOD SPECIMENOrdering Facility: [facility] Address: [address] [place] [address] Performed By: #### 5 7021-8 ####[facility]ATORYCLIA [id number] [address] MCH (RBC) [Entitic mass] 28.5 pg Normal 26.0-34.0 [facility] Comment on above: Order Comment: Speci men Type: BLOOD SPECIMENOrdering Facility: [facility] Address: [address] [place] [address] Performed By: #### 5 7021-8 ####[facility]ATORYCLIA [id number] [address] MCHC (RBC) [Mass/Vol] 31.0 g/dL Normal 30.5-36.0 [facility] Comment on above: Order Comment: Speci men Type: BLOOD SPECIMENOrdering Facility: [facility] Address: [address] [place] [address] Performed By: #### 5 7021-8 ####[facility]ATORYCLIA [id number] [address] MCV (RBC) [Entitic vol] 92.1 fL Normal 80.0-100.0 [facility] Comment on above: Order Comment: Speci men Type: BLOOD SPECIMENOrdering Facility: [facility] Address: [address] [place] [address] Performed By: #### 5 7021-8 ####[facility]ORATORYCLIA [id number] [address] Monocytes (Bld) [#/Vol] 0.51 10*3/uL Normal <0.87 [facility] Comment on above: Order Comment: Speci men Type: BLOOD SPECIMENOrdering Facility: [facility] Address: [address] [place] [address] Performed By: #### 5 7021-8 ####[facility]ENTERCLIA [id number] [address] [place] Monocytes/100 WBC (Bld) 5.0 % Normal [facility] Comment on above: Order Comment: Speci men Type: BLOOD SPECIMENOrdering Facility: [facility] Address: [address] [place] [address] Performed By: #### 5 7021-8 ####[facility]ORATORYCLIA [id number] [place] [address] [place] Neutrophils (Bld) [#/Vol] 7.91 10*3/uL High 1.45-7.50 [facility] Comment on above: Order Comment: Speci men Type: BLOOD SPECIMENOrdering Facility: [facility] Address: [address] [place] [address] Performed By: #### 5 7021-8 ####[facility]ATORYCLIA [id number] [address] Neutrophils/100 WBC (Bld) 76.9 % Normal [facility] Comment on above: Order Comment: Speci men Type: BLOOD SPECIMENOrdering Facility: [facility] Address: [address] [place] [address] Performed By: #### 5 7021-8 ####[facility]ATORYCLIA [id number] [address] [place] Nucleated RBC (Bld) [#/Vol] 10*3/uL Normal <0.01 [facility] Comment on above: Order Comment: Speci men Type: BLOOD SPECIMENOrdering Facility: [facility] Address: [address] [place] [address] Performed By: #### 5 7021-8 ####[facility]ATORYCLIA [id number] [address] [place] Nucleated RBC/100 WBC (Bld) [Ratio] 0.0 /100 WBC Normal [facility] Comment on above: Order Comment: Speci men Type: BLOOD SPECIMENOrdering Facility: [facility] Address: [address] Performed By: #### 5 7021-8 ####[facility]ORATORYCLIA [id number] [address] Platelet mean volume (Bld) [Entitic vol] 10.3 fL Normal 9.0-12.7 [facility] Comment on above: Order Comment: Speci men Type: BLOOD SPECIMENOrdering Facility: [facility] Address: [address] [place], [place] [address] Performed By: #### 5 7021-8 ####[facility]ATORYCLIA [id number] [address] [place] Platelets (Bld) [#/Vol] 152 10*3/uL Normal 150-400 [facility] Comment on above: Order Comment: Speci men Type: BLOOD SPECIMENOrdering Facility: [facility] Address: [address] [place], [place] [address] Performed By: #### 5 7021-8 ####[facility]ORATORYCLIA [id number] [address] [place] RBC (Bld) [#/Vol] 2.77 10*6/uL Low 4.20-6.00 [facility] Comment on above: Order Comment: Speci men Type: BLOOD SPECIMENOrdering Facility: [facility] Address: [address] [place] [address] Performed By: #### 5 7021-8 ####[facility]ATORYCLIA [id number] [address] [place] WBC (Bld) [#/Vol] 10.27 10*3/uL Normal 3.70-11.00 [facility] Comment on above: Order Comment: Speci men Type: BLOOD SPECIMENOrdering Facility: [facility] Address: [address] [place] [address] Performed By: #### 5 7021-8 ####[facility]ORATORYCLIA [id number] [address] Magnesium SerPl-mCncon 08-10 Magnesium [Mass/Vol] 1.8 mg/dL Normal 1.7-2.3 [facility] Comment on above: Order Comment: Speci men Type: BLOOD SPECIMENOrdering Facility: [facility] Address: [address] [place] [address] Performed By: #### 1 9123-9, 2777-1, 39070-1 ####[facility]ATORYCLIA [id number] [address] NURSING PROGon 08-10-2021 NURSING PROG Normal [facility] NURSING PROG Normal [facility] NUTRITIONon 08-10-2021 NUTRITION Normal [facility] Phosphate SerPl-mCncon 08-10 Phosphate [Mass/Vol] 3.7 mg/dL Normal 2.7-4.8 [facility] Comment on above: Order Comment: Speci men Type: BLOOD SPECIMENOrdering Facility: [facility] Address: [address] [place] [address] Performed By: #### 1 9123-9, 2777-1, 63899-1 ####[facility] LABORATORYCLIA [id number] [address] ALLIED HEALTHon 08-09-2021 ALLIED HEALTH Normal [facility] ANES POSTPROC EVALon 022 ANES POSTPROC EVAL Normal [facility] ANES PRE-OPon 08-09-2021 ANES PRE-OP Normal [facility] BRIEF OP NOTon 08-09-2021 BRIEF OP NOT Normal [facility] Basic metabolic 2000 panelon 08-09-2021 Anion gap [Moles/Vol] 8 mmol/L Low 9-18 [facility] Comment on above: Order Comment: Speci men Type: BLOOD SPECIMENOrdering Facility: [facility] Address: [address] [place] [address] Performed By: #### 2 4321-2, 60882-2, 2777-1 ####[facility] LABORATORYCLIA [id number] [address] STATES OF [facility] Calcium [Mass/Vol] 9.2 mg/dL Normal 8.5-10.2 [facility] Comment on above: Order Comment: Speci men Type: BLOOD SPECIMENOrdering Facility: [facility] Address: [address] [place] [address] Performed By: #### 2 4321-2, , 2776-05 ####[facility] LABORATORYCLIA [id number] [place] [address] [place] Chloride [Moles/Vol] 97 mmol/L Normal 97-105 [facility] Comment on above: Order Comment: Speci men Type: BLOOD SPECIMENOrdering Facility: [facility] Address: [address] [place] [address] Performed By: #### 2 4321-2, , 2776-05 ####[facility] LABORATORYCLIA [id number] [address] STATES OF [facility] CO2 [Moles/Vol] 30 mmol/L Normal 22-30 [facility] Comment on above: Order Comment: Speci men Type: BLOOD SPECIMENOrdering Facility: [facility] Address: [address] [place] [address] Performed By: #### 2 4321-2, , 2776-05 ####[facility] LABORATORYCLIA [id number] [address] [place] Creatinine [Mass/Vol] 0.51 mg/dL Low 0.73-1.22 [facility] Comment on above: Order Comment: Speci men Type: BLOOD SPECIMENOrdering Facility: [facility] Address: [address] [place] [address] Performed By: #### 2 4321-2, , 2776-05 ####[facility] LABORATORYCLIA [id number] [address] [place] ESTIMATED GLOMERULAR FILTRATION RATE 110 mL/min/1.73m??? Normal >=60 [facility] Comment on above: Order Comment: Shira feldman Type: BLOOD SPECIMENOrdering Facility: [facility] Address: [address] [place] [address] Result Comment: Luzmaria mated Glomerular Filtration Rate [...] actual GFR. Performed By: #### 2 4321-2, 09561-4, 2776-05 ####[facility] LABORATORYCLIA [id number] [place] [address] [place] Glucose [Mass/Vol] 106 mg/dL High 74-99 [facility] Comment on above: Order Comment: Shira feldman Type: BLOOD SPECIMENOrdering Facility: [facility] Address: [address] [place] [address] Result Comment: The [employer] (ADA) provides guidance for cutoff [...] Standards of Medical Care in Diabetes 2016, [place] [employer]. Diabetes Care. 2016.39(Suppl 1). Performed By: #### 2 4321-2, , 2776-05 ####[facility] LABORATORYCLIA [id number] [place] [address] [place] Potassium [Moles/Vol] 4.1 mmol/L Normal 3.7-5.1 [facility] Comment on above: Order Comment: Shira feldmna Type: BLOOD SPECIMENOrdering Facility: [facility] Address: [address] [address] Performed By: #### 2 4321-2, , 1 ####[facility] LABORATORYCLIA [id number] [address] STATES OF [facility] Sodium [Moles/Vol] 135 mmol/L Low 136-144 [facility] Comment on above: Order Comment: Speci men Type: BLOOD SPECIMENOrdering Facility: [facility] Address: [address] [place] [address] Performed By: #### 2 4321-2, , 2776-05 ####[facility] LABORATORYCLIA [id number] [address] [place] Urea nitrogen [Mass/Vol] 26 mg/dL High 9-24 [facility] Comment on above: Order Comment: Speci men Type: BLOOD SPECIMENOrdering Facility: [facility] Address: [address] [place] [address] Performed By: #### 2 4321-2, , 2776-05 ####[facility] LABORATORYCLIA [id number] [address] [place] CBC W Auto Differential pane l (Bld)on 08-09-2021 Basophils (Bld) [#/Vol] 0.06 10*3/uL Normal <0.11 [facility] Comment on above: Order Comment: Speci men Type: BLOOD SPECIMENOrdering Facility: [facility] Address: [address] [place] [address] Performed By: #### 5 7021-8 ####[facility] LABORATORYCLIA [id number] [address] [place] Basophils/100 WBC (Bld) 0.5 % Normal [facility] Comment on above: Order Comment: Speci men Type: BLOOD SPECIMENOrdering Facility: [facility] Address: [address] [place] [address] Performed By: #### 5 7021-8 ####[facility] LABORATORYCLIA [id number] [address] Differential cell count method Nom (Bld) Auto Normal [facility] Comment on above: Order Comment: Speci men Type: BLOOD SPECIMENOrdering Facility: [facility] Address: [address] [place] [address] Performed By: #### 5 7021-8 ####[facility] LABORATORYCLIA [id number] [address] [place] Eosinophils (Bld) [#/Vol] 0.42 10*3/uL Normal <0.46 [facility] Comment on above: Order Comment: Speci men Type: BLOOD SPECIMENOrdering Facility: [facility] Address: [address] [place] [address] Performed By: #### 5 7021-8 ####[facility] LABORATORYCLIA [id number] [address] Eosinophils/100 WBC (Bld) 3.8 % Normal [facility] Comment on above: Order Comment: Speci men Type: BLOOD SPECIMENOrdering Facility: [facility] Address: [address] [place] [address] Performed By: #### 5 7021-8 ####[facility] LABORATORYCLIA [id number] [address] [place] Erythrocyte distribution width (RBC) [Ratio] 17.6 % High 11.5-15.0 [facility] Comment on above: Order Comment: Speci men Type: BLOOD SPECIMENOrdering Facility: [facility] Address: [address] [place] [address] Performed By: #### 5 7021-8 ####[facility] LABORATORYCLIA [id number] [address] Hematocrit (Bld) [Volume fraction] 29.3 % Low 39.0-51.0 [facility] Comment on above: Order Comment: Speci men Type: BLOOD SPECIMENOrdering Facility: [facility] Address: [address] [place] [address] Performed By: #### 5 7021-8 ####[facility] LABORATORYCLIA [id number] [address] [place] [facility] Hemoglobin (Bld) [Mass/Vol] 9.0 g/dL Low 13.0-17.0 [facility] Comment on above: Order Comment: Speci men Type: BLOOD SPECIMENOrdering Facility: [facility] Address: [address] [place] [address] Performed By: #### 5 7021-8 ####[facility] LABORATORYCLIA [id number] [address] IMMATURE GRAN % 0.5 % Normal [facility] Comment on above: Order Comment: Speci men Type: BLOOD SPECIMENOrdering Facility: [facility] Address: [address] [place] [address] Performed By: #### 5 7021-8 ####[facility] LABORATORYCLIA [id number] [address] IMMATURE GRAN ABS 0.05 k/uL Normal <0.10 [facility] Comment on above: Order Comment: Speci men Type: BLOOD SPECIMENOrdering Facility: [facility] Address: [address] [place] [address] Performed By: #### 5 7021-8 ####[facility] LABORATORYCLIA [id number] [address] [place] Lymphocytes (Bld) [#/Vol] 2.00 10*3/uL Normal 1.00-4.00 [facility] Comment on above: Order Comment: Speci men Type: BLOOD SPECIMENOrdering Facility: [facility] Address: [address] [place] [address] Performed By: #### 5 7021-8 ####[facility] LABORATORYCLIA [id number] [address] Lymphocytes/100 WBC (Bld) 18.1 % Normal [facility] Comment on above: Order Comment: Speci men Type: BLOOD SPECIMENOrdering Facility: [facility] Address: [address] [place] [address] Performed By: #### 5 7021-8 ####[facility] LABORATORYCLIA [id number] [address] MCH (RBC) [Entitic mass] 28.1 pg Normal 26.0-34.0 [facility] Comment on above: Order Comment: Speci men Type: BLOOD SPECIMENOrdering Facility: [facility] Address: [address] [place] [address] Performed By: #### 5 7021-8 ####[facility] LABORATORYCLIA [id number] [address] MCHC (RBC) [Mass/Vol] 30.7 g/dL Normal 30.5-36.0 [facility] Comment on above: Order Comment: Speci men Type: BLOOD SPECIMENOrdering Facility: [facility] Address: [address] [place] [address] Performed By: #### 5 7021-8 ####[facility] LABORATORYCLIA [id number] [address] STATES [place] [facility] MCV (RBC) [Entitic vol] 91.6 fL Normal 80.0-100.0 [facility] Comment on above: Order Comment: Speci men Type: BLOOD SPECIMENOrdering Facility: [facility] Address: [address] [place] [address] Performed By: #### 5 7021-8 ####[facility] LABORATORYCLIA [id number] [address] Monocytes (Bld) [#/Vol] 0.68 10*3/uL Normal <0.87 [facility] Comment on above: Order Comment: Speci men Type: BLOOD SPECIMENOrdering Facility: [facility] Address: [address] [place] [address] Performed By: #### 5 7021-8 ####[facility] LABORATORYCLIA [id number] [address] Monocytes/100 WBC (Bld) 6.2 % Normal [facility] Comment on above: Order Comment: Speci men Type: BLOOD SPECIMENOrdering Facility: [facility] Address: [address] [place] [address] Performed By: #### 5 7021-8 ####[facility]ORATORYCLIA [id number] [address] [place] Neutrophils (Bld) [#/Vol] 7.82 10*3/uL High 1.45-7.50 [facility] Comment on above: Order Comment: Speci men Type: BLOOD SPECIMENOrdering Facility: [facility] Address: [address] [place] [address] Performed By: #### 5 7021-8 ####[facility]ORATORYCLIA [id number] [address] [place] Neutrophils/100 WBC (Bld) 70.9 % Normal [facility] Comment on above: Order Comment: Speci men Type: BLOOD SPECIMENOrdering Facility: [facility] Address: [address] [place], [place] [address] Performed By: #### 5 7021-8 ####[facility]ORATORYCLIA [id number] [address] [place] Nucleated RBC (Bld) [#/Vol] 10*3/uL Normal <0.01 [facility] Comment on above: Order Comment: Speci men Type: BLOOD SPECIMENOrdering Facility: [facility] Address: [address] [place], [place] [address] Performed By: #### 5 7021-8 ####[facility]ORATORYCLIA [id number] [address] [place] Nucleated RBC/100 WBC (Bld) [Ratio] 0.0 /100 WBC Normal [facility] Comment on above: Order Comment: Speci men Type: BLOOD SPECIMENOrdering Facility: [facility] Address: [address] [place] [address] Performed By: #### 5 7021-8 ####[facility]ORATORYCLIA [id number] [address] [place] Platelet mean volume (Bld) [Entitic vol] 10.1 fL Normal 9.0-12.7 [facility] Comment on above: Order Comment: Speci men Type: BLOOD SPECIMENOrdering Facility: [facility] Address: [address] [place] [address] Performed By: #### 5 7021-8 ####[facility] LABORATORYCLIA [id number] [address] [place] Platelets (Bld) [#/Vol] 160 10*3/uL Normal 150-400 [facility] Comment on above: Order Comment: Speci men Type: BLOOD SPECIMENOrdering Facility: [facility] Address: [address] [place] [address] Performed By: #### 5 7021-8 ####[facility] LABORATORYCLIA [id number] [place] [address] [place] RBC (Bld) [#/Vol] 3.20 10*6/uL Low 4.20-6.00 [facility] Comment on above: Order Comment: Speci men Type: BLOOD SPECIMENOrdering Facility: [facility] Address: [address] [place] [address] Performed By: #### 5 7021-8 ####[facility] LABORATORYCLIA [id number] [place] [address] [place] WBC (Bld) [#/Vol] 11.03 10*3/uL High 3.70-11.00 [facility] Comment on above: Order Comment: Speci men Type: BLOOD SPECIMENOrdering Facility: [facility] Address: [address] [place] [address] Performed By: #### 5 7021-8 ####[facility] LABORATORYCLIA [id number] [address] [place] CONSULT PROGon 08-09-2021 CONSULT PROG Normal [facility] CT BRAIN WO IVCONon 08-10-[address] BRAIN WO IVCON Normal [facility] CT BRAIN WO IVCON Normal [facility] Magnesium SerPl-mCncon 08-09 Magnesium [Mass/Vol] 2.0 mg/dL Normal 1.7-2.3 [facility] Comment on above: Order Comment: Speci men Type: BLOOD SPECIMENOrdering Facility: [facility] Address: [address] [place] [address] Performed By: #### 2 4321-2, 26931-7, 2777-1 ####[facility] LABORATORYCLIA [id number] [address] OF [facility] NURSING PROGon 08-09-2021 NURSING PROG Normal [facility] OPERATIVE NOon 08-09-2021 OPERATIVE NO Normal [facility] PT panel Coag (PPP)on 2021 INR Coag (PPP) [Relative time] 1.1 {INR} Normal 0.9-1.3 [facility] Comment on above: Order Comment: Speci men Type: BLOOD SPECIMENOrdering Facility: [facility] Address: [address] [place] [address] Result Comment: Yris min K Antagonist (VKA) Therapeutic Range: INR 2 to 3 (Target INR of 2.5)Note: For patients treated with VKA drugs, such as warfarin, the [employer] 2012 Guideline recommends [...] al. Chest 2012, 141:7S-47SAlba MURRY, et al. [facility] 2017, 70: 252-289 Performed By: #### 3 4528-0, 21020-6 ####[facility] LABORATORYCLIA [id number] [address] [place] PT Coag (PPP) [Time] 11.7 s Normal 9.7-13.0 [facility] Comment on above: Order Comment: Speci men Type: BLOOD SPECIMENOrdering Facility: [facility] Address: [address] [place] [address] Performed By: #### 3 4528-0, 92650-4 ####[facility] LABORATORYCLIA [id number] [address] [place] Phosphate SerPl-mCncon 08-09 Phosphate [Mass/Vol] 4.0 mg/dL Normal 2.7-4.8 [facility] Comment on above: Order Comment: Speci men Type: BLOOD SPECIMENOrdering Facility: [facility] Address: [address] [place] [address] Performed By: #### 2 4321-2, 25772-1, 2777-1 ####[facility] LABORATORYCLIA [id number] [address] OF [facility] THERAPY NTon 08-09-2021 THERAPY NT Normal [facility] THERAPY NT Normal [facility] TYPE AND SCREENon 08-09-2021 ABO O Normal [facility] Comment on above: Order Comment: Speci men Type: BLOOD SPECIMENOrdering Facility: [facility] Address: [address] [place] [address] Performed By: #### T SCR ####[facility] BLOOD BANKCLIA [id number] [address] [place] HISTORICAL AB SCR STATUS Negative Normal [facility] Comment on above: Order Comment: Speci men Type: BLOOD SPECIMENOrdering Facility: [facility] Address: [address] [place] [address] Performed By: #### T SCR ####[facility] BLOOD BANKCLIA [id number] [address] Rh Nom (Bld) Positive Normal [facility] Comment on above: Order Comment: Speci men Type: BLOOD SPECIMENOrdering Facility: [facility] Address: [address] [place] [address] Performed By: #### T SCR ####[facility] BLOOD BANKCLIA [id number] [address] TYPE AND SCREEN EXPIRATION 08/12/2021 23:59 Normal [facility] Comment on above: Order Comment: Speci men Type: BLOOD SPECIMENOrdering Facility: [facility] Address: [address] [place] [address] Performed By: #### T SCR ####[facility] BLOOD BANKCLIA [id number] [address] XR ABD 2V SUPINE W UPR/DECUB /CTLon 08-09-2021 XR ABD 2V SUPINE W UPR/DECUB/CTL Normal [facility] XR CHEST 1V FRONTALon 2021 XR CHEST 1V FRONTAL Normal [facility] XR NECK SOFT TISSUE 2V AP/LA Ton 08-09-2021 XR NECK SOFT TISSUE 2V AP/LAT Normal [facility] XR SKULL 2V AP/LATon 022 XR SKULL 2V AP/LAT Normal [facility] aPTT PPPon 08-09-2021 aPTT Coag (PPP) [Time] 26.8 s Normal 23.0-32.4 [facility] Comment on above: Order Comment: Speci men Type: BLOOD SPECIMENOrdering Facility: [facility] Address: [address] [place] [address] Performed By: #### 3 4528-0, 44322-3 ####[facility] LABORATORYCLIA [id number] [address] CASE MANAGEMon 08-08-2021 CASE MANAGEM Normal [facility] CBC W Auto Differential pane l (Bld)on 08-08-2021 Basophils (Bld) [#/Vol] 0.05 10*3/uL Normal <0.11 [facility] Comment on above: Order Comment: Speci men Type: BLOOD SPECIMENOrdering Facility: [facility] Address: [address] [address] Performed By: #### 5 7021-8 ####[facility]ORATORYCLIA [id number] [address] Basophils/100 WBC (Bld) 0.5 % Normal [facility] Comment on above: Order Comment: Speci men Type: BLOOD SPECIMENOrdering Facility: [facility] Address: [address] [place] [address] Performed By: #### 5 7021-8 ####[facility] LABORATORYCLIA [id number] [address] Differential cell count method Nom (Bld) Auto Normal [facility] Comment on above: Order Comment: Speci men Type: BLOOD SPECIMENOrdering Facility: [facility] Address: [address] [place] [address] Performed By: #### 5 7021-8 ####[facility] LABORATORYCLIA [id number] [address] [place] Eosinophils (Bld) [#/Vol] 0.17 10*3/uL Normal <0.46 [facility] Comment on above: Order Comment: Speci men Type: BLOOD SPECIMENOrdering Facility: [facility] Address: [address] [place] [address] Performed By: #### 5 7021-8 ####[facility]ORATORYCLIA [id number] [address] Eosinophils/100 WBC (Bld) 1.6 % Normal [facility] Comment on above: Order Comment: Speci men Type: BLOOD SPECIMENOrdering Facility: [facility] Address: [address] [place] [address] Performed By: #### 5 7021-8 ####[facility]ORATORYCLIA [id number] [address] [place] Erythrocyte distribution width (RBC) [Ratio] 17.8 % High 11.5-15.0 [facility] Comment on above: Order Comment: Speci men Type: BLOOD SPECIMENOrdering Facility: [facility] Address: [address] [place] [address] Performed By: #### 5 7021-8 ####[facility] LABORATORYCLIA [id number] [address] Hematocrit (Bld) [Volume fraction] 29.6 % Low 39.0-51.0 [facility] Comment on above: Order Comment: Speci men Type: BLOOD SPECIMENOrdering Facility: [facility] Address: [address] [place] [address] Performed By: #### 5 7021-8 ####[facility] LABORATORYCLIA [id number] [address] Hemoglobin (Bld) [Mass/Vol] 9.0 g/dL Low 13.0-17.0 [facility] Comment on above: Order Comment: Speci men Type: BLOOD SPECIMENOrdering Facility: [facility] Address: [address] [place] [address] Performed By: #### 5 7021-8 ####[facility] LABORATORYCLIA [id number] [address] IMMATURE GRAN % 0.5 % Normal [facility] Comment on above: Order Comment: Speci men Type: BLOOD SPECIMENOrdering Facility: [facility] Address: [address] [place] [address] Performed By: #### 5 7021-8 ####[facility] LABORATORYCLIA [id number] [address] IMMATURE GRAN ABS 0.05 k/uL Normal <0.10 [facility] Comment on above: Order Comment: Speci men Type: BLOOD SPECIMENOrdering Facility: [facility] Address: [address] [place] [address] Performed By: #### 5 7021-8 ####[facility] LABORATORYCLIA [id number] [place] [address] [place] Lymphocytes (Bld) [#/Vol] 1.93 10*3/uL Normal 1.00-4.00 [facility] Comment on above: Order Comment: Speci men Type: BLOOD SPECIMENOrdering Facility: [facility] Address: [address] [place] [address] Performed By: #### 5 7021-8 ####[facility] LABORATORYCLIA [id number] [address] [place] Lymphocytes/100 WBC (Bld) 18.2 % Normal [facility] Comment on above: Order Comment: Speci men Type: BLOOD SPECIMENOrdering Facility: [facility] Address: [address] [place] [address] Performed By: #### 5 7021-8 ####[facility] LABORATORYCLIA [id number] [address] [place] MCH (RBC) [Entitic mass] 28.1 pg Normal 26.0-34.0 [facility] Comment on above: Order Comment: Speci men Type: BLOOD SPECIMENOrdering Facility: [facility] Address: [address] [place] [address] Performed By: #### 5 7021-8 ####[facility] LABORATORYCLIA [id number] [address] [place] MCHC (RBC) [Mass/Vol] 30.4 g/dL Low 30.5-36.0 [facility] Comment on above: Order Comment: Speci men Type: BLOOD SPECIMENOrdering Facility: [facility] Address: [address] [place] [address] Performed By: #### 5 7021-8 ####[facility] LABORATORYCLIA [id number] [address] MCV (RBC) [Entitic vol] 92.5 fL Normal 80.0-100.0 [facility] Comment on above: Order Comment: Speci men Type: BLOOD SPECIMENOrdering Facility: [facility] Address: [address] [place] [address] Performed By: #### 5 7021-8 ####[facility]ORATORYCLIA [id number] [place] [address] [place] Monocytes (Bld) [#/Vol] 0.75 10*3/uL Normal <0.87 [facility] Comment on above: Order Comment: Speci men Type: BLOOD SPECIMENOrdering Facility: [facility] Address: [address] [place] [address] Performed By: #### 5 7021-8 ####[facility]ATORYCLIA [id number] [address] [place] Monocytes/100 WBC (Bld) 7.1 % Normal [facility] Comment on above: Order Comment: Speci men Type: BLOOD SPECIMENOrdering Facility: [facility] Address: [address] [place] [address] Performed By: #### 5 7021-8 ####[facility]ORATORYCLIA [id number] [address] [place] Neutrophils (Bld) [#/Vol] 7.65 10*3/uL High 1.45-7.50 [facility] Comment on above: Order Comment: Speci men Type: BLOOD SPECIMENOrdering Facility: [facility] Address: [address] [place] [address] Performed By: #### 5 7021-8 ####[facility]ATORYCLIA [id number] [address] [place] Neutrophils/100 WBC (Bld) 72.1 % Normal [facility] Comment on above: Order Comment: Speci men Type: BLOOD SPECIMENOrdering Facility: [facility] Address: [address] [place] [address] Performed By: #### 5 7021-8 ####[facility]ORATORYCLIA [id number] [place] [address] [place] Nucleated RBC (Bld) [#/Vol] 10*3/uL Normal <0.01 [facility] Comment on above: Order Comment: Speci men Type: BLOOD SPECIMENOrdering Facility: [facility] Address: [address] [place] [address] Performed By: #### 5 7021-8 ####[facility]ORATORYCLIA [id number] [address] Nucleated RBC/100 WBC (Bld) [Ratio] 0.0 /100 WBC Normal [facility] Comment on above: Order Comment: Speci men Type: BLOOD SPECIMENOrdering Facility: [facility] Address: [address] [place] [address] Performed By: #### 5 7021-8 ####[facility]ORATORYCLIA [id number] [address] [place] Platelet mean volume (Bld) [Entitic vol] 9.8 fL Normal 9.0-12.7 [facility] Comment on above: Order Comment: Speci men Type: BLOOD SPECIMENOrdering Facility: [facility] Address: [address] [place] [address] Performed By: #### 5 7021-8 ####[facility]ATORYCLIA [id number] [address] [place] Platelets (Bld) [#/Vol] 175 10*3/uL Normal 150-400 [facility] Comment on above: Order Comment: Speci men Type: BLOOD SPECIMENOrdering Facility: [facility] Address: [address] [place] [address] Performed By: #### 5 7021-8 ####[facility]ORATORYCLIA [id number] [address] [place] RBC (Bld) [#/Vol] 3.20 10*6/uL Low 4.20-6.00 [facility] Comment on above: Order Comment: Speci men Type: BLOOD SPECIMENOrdering Facility: [facility] Address: [address] [place] [address] Performed By: #### 5 7021-8 ####[facility] LABORATORYCLIA [id number] [place] WBC (Bld) [#/Vol] 10.60 10*3/uL Normal 3.70-11.00 [facility] Comment on above: Order Comment: Speci men Type: BLOOD SPECIMENOrdering Facility: [facility] Address: [address] [place] [address] Performed By: #### 5 7021-8 ####[facility] LABORATORYCLIA [id number] [address] [place] CT BRAIN WO IVCONon 08-09-19 CT BRAIN WO IVCON Normal [facility] NURSING PROGon 08-08-2021 NURSING PROG Normal [facility] Prealbumin [Mass/Vol]on Prealbumin Nephelometry [Mass/Vol] 29 mg/dL Normal 17-36 [facility] Comment on above: Order Comment: Speci men Type: BLOOD SPECIMENOrdering Facility: [facility] Address: [address] [place] [address] Performed By: #### 1 4338-8 ####[facility] LABORATORYCLIA [id number] [address] OF [facility] SARS-CoV-2 RNA Resp Ql MEGAN+p robeon 08-08-2021 SARS-CoV-2 (COVID-19) RNA MEGAN+probe Ql (Resp) COVID 19 RESULT: SARS-CoV-2 (Agent of COVID-19) Not Detected by RT-PCR or equivalent method. This test has been authorized by FDA under an Emergency Use Authorization (EUA). Normal [facility] Comment on above: Performed By: #### 9 4500-6 ####[facility]ORATORYCLIA [id number] [address] [place] ALLIED HEALTHon 08-07-2021 ALLIED HEALTH Normal [facility] Basic metabolic 2000 panelon 08-07-2021 Anion gap [Moles/Vol] 9 mmol/L Normal 9-18 [facility] Comment on above: Order Comment: Speci men Type: BLOOD SPECIMENOrdering Facility: [facility] Address: [address] Performed By: #### 2 4321-2, 2776-, , HFP ####[facility]ORATORYCLIA [id number] [place] [address] [place] Calcium [Mass/Vol] 9.4 mg/dL Normal 8.5-10.2 [facility] Comment on above: Order Comment: Speci men Type: BLOOD SPECIMENOrdering Facility: [facility] Address: [address] [place] [address] Performed By: #### 2 4321-2, 2776-05, , HFP ####[facility]ORATORYCLIA [id number] [place] [address] [place] Chloride [Moles/Vol] 98 mmol/L Normal 97-105 [facility] Comment on above: Order Comment: Speci men Type: BLOOD SPECIMENOrdering Facility: [facility] Address: [address] [place] [address] Performed By: #### 2 4321-2, 2776-05, , HFP ####[facility]ORATORYCLIA [id number] [place] [address] [place] CO2 [Moles/Vol] 29 mmol/L Normal 22-30 [facility] Comment on above: Order Comment: Speci men Type: BLOOD SPECIMENOrdering Facility: [facility] Address: [address] [place], [place] [address] Performed By: #### 2 4321-2, 2776-05, , HFP ####[facility] LABORATORYCLIA [id number] [place] [address] [place] Creatinine [Mass/Vol] 0.67 mg/dL Low 0.73-1.22 [facility] Comment on above: Order Comment: Speci men Type: BLOOD SPECIMENOrdering Facility: [facility] Address: [address] [place] [address] Performed By: #### 2 4321-2, 2776-, , HFP ####[facility] POINTIA [id number] [place] [address] [facility] ESTIMATED GLOMERULAR FILTRATION RATE 101 mL/min/1.73m??? Normal >=60 [facility] Comment on above: Order Comment: Shira feldman Type: BLOOD SPECIMENOrdering Facility: [facility] Address: [address] [place] [address] Result Comment: Luzmaria mated Glomerular Filtration Rate [...] Performed By: #### 2 4321-2, 2777-, , [facility] ####[facility] [id number] [place] [id number] [facility] Glucose [Mass/Vol] 117 mg/dL High 74-99 [facility] Comment on above: Order Comment: Johncara feldman Type: BLOOD SPECIMENOrdering Facility: [facility] Address: [address] [place] [address] Result Comment: The [place] Diabetes Association (ADA) provides guidance for cutoff [...] Standards of Medical Care in Diabetes 2016, [place] [employer]. Diabetes Care. 2016.39(Suppl 1). Performed By: #### 2 4321-2, 2777-, , [facility] ####[facility] POINTIA [id number] [place] [address] [place] Potassium [Moles/Vol] 4.1 mmol/L Normal 3.7-5.1 [facility] Comment on above: Order Comment: Speci men Type: BLOOD SPECIMENOrdering Facility: [facility] Address: [address] [place] [address] Performed By: #### 2 4321-2, 2777-1, , HFP ####[facility] LABORATORYCLIA [id number] [address] STATES [facility] Sodium [Moles/Vol] 136 mmol/L Normal 136-144 [facility] Comment on above: Order Comment: Speci men Type: BLOOD SPECIMENOrdering Facility: [facility] Address: [address] [place] [address] Performed By: #### 2 4321-2, 2776-, , HFP ####[facility] LABORATORYCLIA [id number] [address] STATES [facility] Urea nitrogen [Mass/Vol] 31 mg/dL High 9-24 [facility] Comment on above: Order Comment: Speci men Type: BLOOD SPECIMENOrdering Facility: [facility] Address: [address] [place] [address] Performed By: #### 2 4321-2, 2776-, , HFP ####[facility] LABORATORYCLIA [id number] [address] STATES OF [facility] CBC W Auto Differential pane l (Bld)on 08-07-2021 Basophils (Bld) [#/Vol] 0.03 10*3/uL Normal <0.11 [facility] Comment on above: Order Comment: Speci men Type: BLOOD SPECIMENOrdering Facility: [facility] Address: [address] [place] [address] Performed By: #### 5 7021-8 ####[facility]ORATORYCLIA [id number] [address] Basophils/100 WBC (Bld) 0.3 % Normal [facility] Comment on above: Order Comment: Speci men Type: BLOOD SPECIMENOrdering Facility: [facility] Address: [address] [place] [address] Performed By: #### 5 7021-8 ####[facility]ORATORYCLIA [id number] [address] Differential cell count method Nom (Bld) Auto Normal [facility] Comment on above: Order Comment: Speci men Type: BLOOD SPECIMENOrdering Facility: [facility] Address: [address] [place] [address] Performed By: #### 5 7021-8 ####[facility]ORATORYCLIA [id number] [address] [place] Eosinophils (Bld) [#/Vol] 0.16 10*3/uL Normal <0.46 [facility] Comment on above: Order Comment: Speci men Type: BLOOD SPECIMENOrdering Facility: [facility] Address: [address] [place] [address] Performed By: #### 5 7021-8 ####[facility]ORATORYCLIA [id number] [address] Eosinophils/100 WBC (Bld) 1.6 % Normal [facility] Comment on above: Order Comment: Speci men Type: BLOOD SPECIMENOrdering Facility: [facility] Address: [address] [place] [address] Performed By: #### 5 7021-8 ####[facility]ORATORYCLIA [id number] [address] [place] Erythrocyte distribution width (RBC) [Ratio] 18.1 % High 11.5-15.0 [facility] Comment on above: Order Comment: Speci men Type: BLOOD SPECIMENOrdering Facility: [facility] Address: [address] [place] [address] Performed By: #### 5 7021-8 ####[facility]ORATORYCLIA [id number] [address] [place] Hematocrit (Bld) [Volume fraction] 30.6 % Low 39.0-51.0 [facility] Comment on above: Order Comment: Speci men Type: BLOOD SPECIMENOrdering Facility: [facility] Address: [address] [place] [address] Performed By: #### 5 7021-8 ####[facility]ORATORYCLIA [id number] [address] [place] Hemoglobin (Bld) [Mass/Vol] 9.4 g/dL Low 13.0-17.0 [facility] Comment on above: Order Comment: Speci men Type: BLOOD SPECIMENOrdering Facility: [facility] Address: [address] [place] [address] Performed By: #### 5 7021-8 ####[facility]ORATORYCLIA [id number] [address] [place] IMMATURE GRAN % 0.4 % Normal [facility] Comment on above: Order Comment: Speci men Type: BLOOD SPECIMENOrdering Facility: [facility] Address: [address] [place] [address] Performed By: #### 5 7021-8 ####[facility]ORATORYCLIA [id number] [address] IMMATURE GRAN ABS 0.04 k/uL Normal <0.10 [facility] Comment on above: Order Comment: Speci men Type: BLOOD SPECIMENOrdering Facility: [facility] Address: [address] [place] [address] Performed By: #### 5 7021-8 ####[facility]ATORYCLIA [id number] [address] [place] Lymphocytes (Bld) [#/Vol] 2.05 10*3/uL Normal 1.00-4.00 [facility] Comment on above: Order Comment: Speci men Type: BLOOD SPECIMENOrdering Facility: [facility] Address: [address] [place] [address] Performed By: #### 5 7021-8 ####[facility]ATORYCLIA [id number] [address] Lymphocytes/100 WBC (Bld) 20.2 % Normal [facility] Comment on above: Order Comment: Speci men Type: BLOOD SPECIMENOrdering Facility: [facility] Address: [address] [place] [address] Performed By: #### 5 7021-8 ####[facility]ORATORYCLIA [id number] [address] MCH (RBC) [Entitic mass] 28.8 pg Normal 26.0-34.0 [facility] Comment on above: Order Comment: Speci men Type: BLOOD SPECIMENOrdering Facility: [facility] Address: [address] [place] [address] Performed By: #### 5 7021-8 ####[facility]ORATORYCLIA [id number] [address] MCHC (RBC) [Mass/Vol] 30.7 g/dL Normal 30.5-36.0 [facility] Comment on above: Order Comment: Speci men Type: BLOOD SPECIMENOrdering Facility: [facility] Address: [address] [place] [address] Performed By: #### 5 7021-8 ####[facility]ATORYCLIA [id number] [address] MCV (RBC) [Entitic vol] 93.9 fL Normal 80.0-100.0 [facility] Comment on above: Order Comment: Speci men Type: BLOOD SPECIMENOrdering Facility: [facility] Address: [address] [place] [address] Performed By: #### 5 7021-8 ####[facility]ATORYCLIA [id number] [address] Monocytes (Bld) [#/Vol] 0.64 10*3/uL Normal <0.87 [facility] Comment on above: Order Comment: Speci men Type: BLOOD SPECIMENOrdering Facility: [facility] Address: [address] [place] [address] Performed By: #### 5 7021-8 ####[facility]ATORYCLIA [id number] [address] [place] Monocytes/100 WBC (Bld) 6.3 % Normal [facility] Comment on above: Order Comment: Speci men Type: BLOOD SPECIMENOrdering Facility: [facility] Address: [address] [place] [address] Performed By: #### 5 7021-8 ####[facility] LABORATORYCLIA [id number] [place] [address] [place] Neutrophils (Bld) [#/Vol] 7.22 10*3/uL Normal 1.45-7.50 [facility] Comment on above: Order Comment: Speci men Type: BLOOD SPECIMENOrdering Facility: [facility] Address: [address] [place] [address] Performed By: #### 5 7021-8 ####[facility]ATORYCLIA [id number] [address] [place] Neutrophils/100 WBC (Bld) 71.2 % Normal [facility] Comment on above: Order Comment: Speci men Type: BLOOD SPECIMENOrdering Facility: [facility] Address: [address] [place] [address] Performed By: #### 5 7021-8 ####[facility]ATORYCLIA [id number] [place] [address] [place] Nucleated RBC (Bld) [#/Vol] 10*3/uL Normal <0.01 [facility] Comment on above: Order Comment: Speci men Type: BLOOD SPECIMENOrdering Facility: [facility] Address: [address] [place] [address] Performed By: #### 5 7021-8 ####[facility]ATORYCLIA [id number] [place] [address] [place] Nucleated RBC/100 WBC (Bld) [Ratio] 0.0 /100 WBC Normal [facility] Comment on above: Order Comment: Speci men Type: BLOOD SPECIMENOrdering Facility: [facility] Address: [address] [place] [address] Performed By: #### 5 7021-8 ####[facility]ATORYCLIA [id number] [address] [place] Platelet mean volume (Bld) [Entitic vol] 9.9 fL Normal 9.0-12.7 [facility] Comment on above: Order Comment: Speci men Type: BLOOD SPECIMENOrdering Facility: [facility] Address: [address] [place], [place] [address] Performed By: #### 5 7021-8 ####[facility]ORATORYCLIA [id number] [address] [place] Platelets (Bld) [#/Vol] 227 10*3/uL Normal 150-400 [facility] Comment on above: Order Comment: Speci men Type: BLOOD SPECIMENOrdering Facility: [facility] Address: [address] [place] [address] Performed By: #### 5 7021-8 ####[facility]ORATORYCLIA [id number] [place] [address] [place] RBC (Bld) [#/Vol] 3.26 10*6/uL Low 4.20-6.00 [facility] Comment on above: Order Comment: Speci men Type: BLOOD SPECIMENOrdering Facility: [facility] Address: [address] [place], [place] [address] Performed By: #### 5 7021-8 ####[facility]ORATORYCLIA [id number] [address] [place] WBC (Bld) [#/Vol] 10.14 10*3/uL Normal 3.70-11.00 [facility] Comment on above: Order Comment: Speci men Type: BLOOD SPECIMENOrdering Facility: [facility] Address: [address] [place], [place] [address] Performed By: #### 5 7021-8 ####[facility]ORATORYCLIA [id number] [address] BRAIN WO IVCONon 08-08-19 CT BRAIN WO IVCON Normal [facility] HEPATIC FUNCTION PNLon 08-07 Albumin [Mass/Vol] 3.6 g/dL Low 3.9-4.9 [facility] Comment on above: Order Comment: Speci men Type: BLOOD SPECIMENOrdering Facility: [facility] Address: [address] [place] [address] Performed By: #### 2 4321-2, 2777-1, , HFP ####[facility]ORATORYCLIA [id number] [address] ALP [Catalytic activity/Vol] 124 U/L High 38-113 [facility] Comment on above: Order Comment: Speci men Type: BLOOD SPECIMENOrdering Facility: [facility] Address: [address] [place] [address] Performed By: #### 2 4321-2, 2777-1, , HFP ####[facility]ORATORYCLIA [id number] [address] ALT With P-5'-P [Catalytic activity/Vol] 29 U/L Normal 10-54 [facility] Comment on above: Order Comment: Speci men Type: BLOOD SPECIMENOrdering Facility: [facility] Address: [address] [place] [address] Performed By: #### 2 4321-2, 2777-1, , HFP ####[facility]ORATORYCLIA [id number] [address] AST With P-5'-P [Catalytic activity/Vol] 18 U/L Normal 14-40 [facility] Comment on above: Order Comment: Speci men Type: BLOOD SPECIMENOrdering Facility: [facility] Address: [address] [place] [address] Performed By: #### 2 4321-2, 277-, , HFP ####[facility]ORATORYCLIA [id number] [place] [id number] [place] Bilirubin [Mass/Vol] 0.3 mg/dL Normal 0.2-1.3 [facility] Comment on above: Order Comment: Speci men Type: BLOOD SPECIMENOrdering Facility: [facility] Address: [address] [place], [place] [address] Performed By: #### 2 4321-2, 2776-05, , HFP ####[facility]ATORYCLIA [id number] [place] [address] [place] Bilirubin.conjugated [Mass/Vol] mg/dL Normal <0.2 [facility] Comment on above: Order Comment: Speci men Type: BLOOD SPECIMENOrdering Facility: [facility] Address: [address] [place] [address] Performed By: #### 2 4321-2, 2776-05, , HFP ####[facility]ATORYCLIA [id number] [place] [address] [place] Protein [Mass/Vol] 6.4 g/dL Normal 6.3-8.0 [facility] Comment on above: Order Comment: Speci men Type: BLOOD SPECIMENOrdering Facility: [facility] Address: [address] [place] [address] Performed By: #### 2 4321-2, 2776-05, , HFP ####[facility]ATORYCLIA [id number] [place] [address] [place] Magnesium SerPl-mCncon 08-07 Magnesium [Mass/Vol] 2.3 mg/dL Normal 1.7-2.3 [facility] Comment on above: Order Comment: Speci men Type: BLOOD SPECIMENOrdering Facility: [facility] Address: [address] [place] [address] Performed By: #### 2 4321-2, 2776-05, , HFP ####[facility]ATORYCLIA [id number] [place] [address] [place] NURSING PROGon 08-07-2021 NURSING PROG Normal [facility] Phosphate SerPl-mCncon 08-07 Phosphate [Mass/Vol] 3.5 mg/dL Normal 2.7-4.8 [facility] Comment on above: Order Comment: Speci men Type: BLOOD SPECIMENOrdering Facility: [facility] Address: [address] [place] [address] Performed By: #### 2 4321-2, 2776-05, , [facility] ####[facility] LABORATORYCLIA [id number] [address] [place] ANES POSTPROC EVALon 022 ANES POSTPROC EVAL Normal [facility] Basic metabolic 2000 panelon 08-06-2021 Anion gap [Moles/Vol] 11 mmol/L Normal 9-18 [facility] Comment on above: Order Comment: Speci men Type: BLOOD SPECIMENOrdering Facility: [facility] Address: [address] [place] [address] Performed By: #### 2 4321-2, 2776-05, ####[facility] CENTERCLIA [id number] [place] [address] [place] Calcium [Mass/Vol] 8.2 mg/dL Low 8.5-10.2 [facility] Comment on above: Order Comment: Speci men Type: BLOOD SPECIMENOrdering Facility: [facility] Address: [address] [address] Performed By: #### 2 4321-2, 2776-05, ####[facility] LABORATORYCLIA [id number] [place] [address] [place] Chloride [Moles/Vol] 100 mmol/L Normal 97-105 [facility] Comment on above: Order Comment: Speci men Type: BLOOD SPECIMENOrdering Facility: [facility] Address: [address] [place], [place] [address] Performed By: #### 2 4321-2, 2776-05, ####[facility]CL[facility] [id number] [place] [address] [place] [facility] CO2 [Moles/Vol] 23 mmol/L Normal 22-30 [facility] Comment on above: Order Comment: Speci men Type: BLOOD SPECIMENOrdering Facility: [facility] Address: [address] [place] [address] Performed By: #### 2 4321-2, 2776-05, ####[facility]ENTERCLIA [id number] [address] [id number] [place] [facility] Creatinine [Mass/Vol] 0.55 mg/dL Low 0.73-1.22 [facility] Comment on above: Order Comment: Speci men Type: BLOOD SPECIMENOrdering Facility: [facility] Address: [address] [place] [address] Performed By: #### 2 4321-2, 2776-05, ####[facility]ENTERCLIA [id number] [address] ESTIMATED GLOMERULAR FILTRATION RATE 107 mL/min/1.73m??? Normal >=60 [facility] Comment on above: Order Comment: Speci men Type: BLOOD SPECIMENOrdering Facility: [facility] Address: [address] [place] [address] Result Comment: Luzmaria mated Glomerular Filtration Rate [...] By: #### 2 4321-2, 27711-04, ####[facility]ORATORYCLIA [id number] [place] [place] [id number] [place] Glucose [Mass/Vol] 275 mg/dL High 74-99 [facility] Comment on above: Order Comment: Shira feldman Type: BLOOD SPECIMENOrdering Facility: [facility] Address: [address] [place], [place] [address] Result Comment: The [place] Diabetes Association (ADA) provides guidance for cutoff [...] Standards of Medical Care in Diabetes 2016, [place] [employer]. Diabetes Care. 2016.39(Suppl 1). Performed By: #### 2 4321-2, 2776-05, ####[facility] LABORATORYCLIA [id number] [place] [address] [place] Potassium [Moles/Vol] 3.6 mmol/L Low 3.7-5.1 [facility] Comment on above: Order Comment: Shira feldman Type: BLOOD SPECIMENOrdering Facility: [facility] Address: [address] [place], [place] [address] Performed By: #### 2 4321-2, 27711-04, ####[facility]ATORYCLIA [id number] [place] [address] [place] Sodium [Moles/Vol] 134 mmol/L Low 136-144 [facility] Comment on above: Order Comment: Shira feldman Type: BLOOD SPECIMENOrdering Facility: [facility] Address: [address] [place], [place] [address] Performed By: #### 2 4321-2, 2776-05, ####[facility]ORATORYCLIA [id number] [place] [address] [place] Urea nitrogen [Mass/Vol] 29 mg/dL High 9-24 [facility] Comment on above: Order Comment: Speci men Type: BLOOD SPECIMENOrdering Facility: [facility] Address: [address] [place] [address] Performed By: #### 2 4321-2, 2777-1, 17739-7 ####[facility] LABORATORYCLIA [id number] [place] [address] [place] CBC W Auto Differential pane l (Bld)on 08-06-2021 Basophils (Bld) [#/Vol] 0.03 10*3/uL Normal <0.11 [facility] Comment on above: Order Comment: Speci men Type: BLOOD SPECIMENOrdering Facility: [facility] Address: [address] [place] [address] Performed By: #### 5 7021-8 ####[facility]ORATORYCLIA [id number] [place] [address] [place] Basophils/100 WBC (Bld) 0.3 % Normal [facility] Comment on above: Order Comment: Speci men Type: BLOOD SPECIMENOrdering Facility: [facility] Address: [address] [place] [address] Performed By: #### 5 7021-8 ####[facility] LABORATORYCLIA [id number] [address] STATES [facility] Differential cell count method Nom (Bld) Auto Normal [facility] Comment on above: Order Comment: Speci men Type: BLOOD SPECIMENOrdering Facility: [facility] Address: [address] [place] [address] Performed By: #### 5 7021-8 ####[facility]ORATORYCLIA [id number] [place] [address] [place] Eosinophils (Bld) [#/Vol] 0.18 10*3/uL Normal <0.46 [facility] Comment on above: Order Comment: Speci men Type: BLOOD SPECIMENOrdering Facility: [facility] Address: [address] [place] [address] Performed By: #### 5 7021-8 ####[facility]ORATORYCLIA [id number] [address] STATES [facility] Eosinophils/100 WBC (Bld) 1.6 % Normal [facility] Comment on above: Order Comment: Speci men Type: BLOOD SPECIMENOrdering Facility: [facility] Address: [address] [place] [address] Performed By: #### 5 7021-8 ####[facility]ORATORYCLIA [id number] [address] Erythrocyte distribution width (RBC) [Ratio] 17.9 % High 11.5-15.0 [facility] Comment on above: Order Comment: Speci men Type: BLOOD SPECIMENOrdering Facility: [facility] Address: [address] [place] [address] Performed By: #### 5 7021-8 ####[facility]ORATORYCLIA [id number] [address] Hematocrit (Bld) [Volume fraction] 27.6 % Low 39.0-51.0 [facility] Comment on above: Order Comment: Speci men Type: BLOOD SPECIMENOrdering Facility: [facility] Address: [address] [place] [address] Performed By: #### 5 7021-8 ####[facility]ORATORYCLIA [id number] [address] [place] Hemoglobin (Bld) [Mass/Vol] 8.5 g/dL Low 13.0-17.0 [facility] Comment on above: Order Comment: Speci men Type: BLOOD SPECIMENOrdering Facility: [facility] Address: [address] [place] [address] Performed By: #### 5 7021-8 ####[facility]ORATORYCLIA [id number] [address] [place] IMMATURE GRAN % 0.6 % Normal [facility] Comment on above: Order Comment: Speci men Type: BLOOD SPECIMENOrdering Facility: [facility] Address: [address] [place] [address] Performed By: #### 5 7021-8 ####[facility]ORATORYCLIA [id number] [address] IMMATURE GRAN ABS 0.07 k/uL Normal <0.10 [facility] Comment on above: Order Comment: Speci men Type: BLOOD SPECIMENOrdering Facility: [facility] Address: [address] [place] [address] Performed By: #### 5 7021-8 ####[facility]ORATORYCLIA [id number] [address] Lymphocytes (Bld) [#/Vol] 1.81 10*3/uL Normal 1.00-4.00 [facility] Comment on above: Order Comment: Speci men Type: BLOOD SPECIMENOrdering Facility: [facility] Address: [address] [place] [address] Performed By: #### 5 7021-8 ####[facility]ORATORYCLIA [id number] [address] Lymphocytes/100 WBC (Bld) 15.7 % Normal [facility] Comment on above: Order Comment: Speci men Type: BLOOD SPECIMENOrdering Facility: [facility] Address: [address] [place] [address] Performed By: #### 5 7021-8 ####[facility] LABORATORYCLIA [id number] [address] STATES [facility] MCH (RBC) [Entitic mass] 28.6 pg Normal 26.0-34.0 [facility] Comment on above: Order Comment: Speci men Type: BLOOD SPECIMENOrdering Facility: [facility] Address: [address] [place] [address] Performed By: #### 5 7021-8 ####[facility] LABORATORYCLIA [id number] [address] MCHC (RBC) [Mass/Vol] 30.8 g/dL Normal 30.5-36.0 [facility] Comment on above: Order Comment: Speci men Type: BLOOD SPECIMENOrdering Facility: [facility] Address: [address] [place] [address] Performed By: #### 5 7021-8 ####[facility] LABORATORYCLIA [id number] [address] [place] MCV (RBC) [Entitic vol] 92.9 fL Normal 80.0-100.0 [facility] Comment on above: Order Comment: Speci men Type: BLOOD SPECIMENOrdering Facility: [facility] Address: [address] [place] [address] Performed By: #### 5 7021-8 ####[facility]ORATORYCLIA [id number] [address] [place] Monocytes (Bld) [#/Vol] 0.63 10*3/uL Normal <0.87 [facility] Comment on above: Order Comment: Speci men Type: BLOOD SPECIMENOrdering Facility: [facility] Address: [address] [place] [address] Performed By: #### 5 7021-8 ####[facility]ORATORYCLIA [id number] [address] Monocytes/100 WBC (Bld) 5.5 % Normal [facility] Comment on above: Order Comment: Speci men Type: BLOOD SPECIMENOrdering Facility: [facility] Address: [address] [place] [address] Performed By: #### 5 7021-8 ####[facility]ORATORYCLIA [id number] [address] [place] Neutrophils (Bld) [#/Vol] 8.78 10*3/uL High 1.45-7.50 [facility] Comment on above: Order Comment: Speci men Type: BLOOD SPECIMENOrdering Facility: [facility] Address: [address] [place] [address] Performed By: #### 5 7021-8 ####[facility] LABORATORYCLIA [id number] [address] [place] Neutrophils/100 WBC (Bld) 76.3 % Normal [facility] Comment on above: Order Comment: Speci men Type: BLOOD SPECIMENOrdering Facility: [facility] Address: [address] [place] [address] Performed By: #### 5 7021-8 ####[facility]ORATORYCLIA [id number] [address] [place] Nucleated RBC (Bld) [#/Vol] 10*3/uL Normal <0.01 [facility] Comment on above: Order Comment: Speci men Type: BLOOD SPECIMENOrdering Facility: [facility] Address: [address] [place] [address] Performed By: #### 5 7021-8 ####[facility]ORATORYCLIA [id number] [address] Nucleated RBC/100 WBC (Bld) [Ratio] 0.0 /100 WBC Normal [facility] Comment on above: Order Comment: Speci men Type: BLOOD SPECIMENOrdering Facility: [facility] Address: [address] [place] [address] Performed By: #### 5 7021-8 ####[facility] LABORATORYCLIA [id number] [address] [place] Platelet mean volume (Bld) [Entitic vol] 9.9 fL Normal 9.0-12.7 [facility] Comment on above: Order Comment: Speci men Type: BLOOD SPECIMENOrdering Facility: [facility] Address: [address] [place] [address] Performed By: #### 5 7021-8 ####[facility]ORATORYCLIA [id number] [address] [place] Platelets (Bld) [#/Vol] 230 10*3/uL Normal 150-400 [facility] Comment on above: Order Comment: Speci men Type: BLOOD SPECIMENOrdering Facility: [facility] Address: [address] [place] [address] Performed By: #### 5 7021-8 ####[facility]ORATORYCLIA [id number] [address] RBC (Bld) [#/Vol] 2.97 10*6/uL Low 4.20-6.00 [facility] Comment on above: Order Comment: Speci men Type: BLOOD SPECIMENOrdering Facility: [facility] Address: [address] [place] [address] Performed By: #### 5 7021-8 ####[facility]ORATORYCLIA [id number] [address] WBC (Bld) [#/Vol] 11.50 10*3/uL High 3.70-11.00 [facility] Comment on above: Order Comment: Speci men Type: BLOOD SPECIMENOrdering Facility: [facility] Address: [address] [place] [address] Performed By: #### 5 7021-8 ####[facility]ORATORYCLIA [id number] [address] CONSULT PROGon 08-06-2021 CONSULT PROG Normal [facility] Magnesium SerPl-mCncon 08-06 Magnesium [Mass/Vol] 1.9 mg/dL Normal 1.7-2.3 [facility] Comment on above: Order Comment: Speci men Type: BLOOD SPECIMENOrdering Facility: [facility] Address: [address] [place] [address] Performed By: #### 2 4321-2, 2777-1, 96850-6 ####[facility]ORATORYCLIA [id number] [address] NURSING PROGon 08-06-2021 NURSING PROG Normal [facility] OPERATIVE NOon 08-06-2021 OPERATIVE NO Normal [facility] Phosphate SerPl-mCncon 08-06 Phosphate [Mass/Vol] 4.2 mg/dL Normal 2.7-4.8 [facility] Comment on above: Order Comment: Speci men Type: BLOOD SPECIMENOrdering Facility: [facility] Address: [address] [place], [place] [address] Performed By: #### 2 4321-2, 2777-1, 79560-7 ####[facility]ORATORYCLIA [id number] [place] [address] [place] ALLIED HEALTHon 08-05-2021 ALLIED HEALTH Normal [facility] ALLIED HEALTH Normal [facility] ANES PRE-OPon 08-05-2021 ANES PRE-OP Normal [facility] BRIEF OP NOTon 08-05-2021 BRIEF OP NOT Normal [facility] Bacteria Spec Resp Culton Bacteria identified Respiratory culture Nom (Unsp spec) CULTURE, RESPIRATORY: Few Normal respiratory chris present ORGANISM ID: 1 Few Proteus species Insignificant colony count. No further workup. GRAM STAIN: No organisms seen Few Polymorphonuclear leukocytes Few Epithelial cells Abnormal [facility] Comment on above: Performed By: #### 3 2355-0 ####[facility]ORATORYCLIA [id number] [place] [address] [place] Bacteria Ur Culton Bacteria identified Cx Nom (U) CULTURE, URINE: No growth (<1,000 CFU/ml) Normal [facility] Comment on above: Performed By: #### 6 30-4 ####[facility]ORATORYCLIA [id number] [place] [address] [place] Basic metabolic 2000 panelon 08-05-2021 Anion gap [Moles/Vol] 7 mmol/L Low 9-18 [facility] Comment on above: Order Comment: Speci men Type: BLOOD SPECIMENOrdering Facility: [facility] Address: [address] [place] [address] Performed By: #### 2 4321-2 ####[facility]ORATORYCLIA [id number] [place] [address] [place] Calcium [Mass/Vol] 9.5 mg/dL Normal 8.5-10.2 [facility] Comment on above: Order Comment: Speci men Type: BLOOD SPECIMENOrdering Facility: [facility] Address: [address] [address] Performed By: #### 2 4321-2 ####[facility]ORATORYCLIA [id number] [address] [place] Chloride [Moles/Vol] 97 mmol/L Normal 97-105 [facility] Comment on above: Order Comment: Speci men Type: BLOOD SPECIMENOrdering Facility: [facility] Address: [address] [place] [address] Performed By: #### 2 4321-2 ####[facility]ORATORYCLIA [id number] [address] [place] CO2 [Moles/Vol] 30 mmol/L Normal 22-30 [facility] Comment on above: Order Comment: Speci men Type: BLOOD SPECIMENOrdering Facility: [facility] Address: [address] [place] [address] Performed By: #### 2 4321-2 ####[facility]ORATORYCLIA [id number] [address] [place] Creatinine [Mass/Vol] 0.61 mg/dL Low 0.73-1.22 [facility] Comment on above: Order Comment: Speci men Type: BLOOD SPECIMENOrdering Facility: [facility] Address: [address] [place] [address] Performed By: #### 2 4321-2 ####[facility]ORATORYCLIA [id number] [address] ESTIMATED GLOMERULAR FILTRATION RATE 104 mL/min/1.73m??? Normal >=60 [facility] Comment on above: Order Comment: Speci men Type: BLOOD SPECIMENOrdering Facility: [facility] Address: [address] [place] [address] Result Comment: Luzmaria mated Glomerular Filtration Rate [...] 2 4321-2 ####[facility]ATORYCLIA [id number] [place] [address] [place] Glucose [Mass/Vol] 124 mg/dL High 74-99 [facility] Comment on above: Order Comment: Shira feldman Type: BLOOD SPECIMENOrdering Facility: [facility] Address: [address] [place], [place] [address] Result Comment: The [place] Diabetes Association (ADA) provides guidance for cutoff [...] Standards of Medical Care in Diabetes 2016, [place] [employer]. Diabetes Care. 2016.39(Suppl 1). Performed By: #### 2 4321-2 ####[facility]ORATORYCLIA [id number] [place] [address] [place] Potassium [Moles/Vol] 4.9 mmol/L Normal 3.7-5.1 [facility] Comment on above: Order Comment: Shira feldman Type: BLOOD SPECIMENOrdering Facility: [facility] Address: [address] [place] [address] Performed By: #### 2 4321-2 ####[facility]ATORYCLIA [id number] [place] [address] [place] Sodium [Moles/Vol] 134 mmol/L Low 136-144 [facility] Comment on above: Order Comment: Shira feldman Type: BLOOD SPECIMENOrdering Facility: [facility] Address: [address] [place] [address] Performed By: #### 2 4321-2 ####[facility]ATORYCLIA [id number] [address] STATES [facility] Urea nitrogen [Mass/Vol] 40 mg/dL High 9-24 [facility] Comment on above: Order Comment: Speci men Type: BLOOD SPECIMENOrdering Facility: [facility] Address: [address] [place] [address] Performed By: #### 2 4321-2 ####[facility]ATORYCLIA [id number] [place] [address] [place] CBC W Auto Differential pane l (Bld)on 08-05-2021 Basophils (Bld) [#/Vol] 0.04 10*3/uL Normal <0.11 [facility] Comment on above: Order Comment: Speci men Type: BLOOD SPECIMENOrdering Facility: [facility] Address: [address] [place] [address] Performed By: #### 5 7021-8 ####[facility]ATORYCLIA [id number] [address] [place] Basophils/100 WBC (Bld) 0.3 % Normal [facility] Comment on above: Order Comment: Speci men Type: BLOOD SPECIMENOrdering Facility: [facility] Address: [address] [place] [address] Performed By: #### 5 7021-8 ####[facility]ATORYCLIA [id number] [address] STATES [facility] Differential cell count method Nom (Bld) Auto Normal [facility] Comment on above: Order Comment: Speci men Type: BLOOD SPECIMENOrdering Facility: [facility] Address: [address] [place] [address] Performed By: #### 5 7021-8 ####[facility]ATORYCLIA [id number] [place] [address] [place] Eosinophils (Bld) [#/Vol] 0.42 10*3/uL Normal <0.46 [facility] Comment on above: Order Comment: Speci men Type: BLOOD SPECIMENOrdering Facility: [facility] Address: [address] [place] [address] Performed By: #### 5 7021-8 ####[facility]ATORYCLIA [id number] [address] Eosinophils/100 WBC (Bld) 3.6 % Normal [facility] Comment on above: Order Comment: Speci men Type: BLOOD SPECIMENOrdering Facility: [facility] Address: [address] [place] [address] Performed By: #### 5 7021-8 ####[facility]ATORYCLIA [id number] [address] [place] Erythrocyte distribution width (RBC) [Ratio] 17.9 % High 11.5-15.0 [facility] Comment on above: Order Comment: Speci men Type: BLOOD SPECIMENOrdering Facility: [facility] Address: [address] [place] [address] Performed By: #### 5 7021-8 ####[facility]ATORYCLIA [id number] [address] [place] Hematocrit (Bld) [Volume fraction] 30.8 % Low 39.0-51.0 [facility] Comment on above: Order Comment: Speci men Type: BLOOD SPECIMENOrdering Facility: [facility] Address: [address] [place] [address] Performed By: #### 5 7021-8 ####[facility]ATORYCLIA [id number] [address] [place] Hemoglobin (Bld) [Mass/Vol] 9.6 g/dL Low 13.0-17.0 [facility] Comment on above: Order Comment: Speci men Type: BLOOD SPECIMENOrdering Facility: [facility] Address: [address] [place] [address] Performed By: #### 5 7021-8 ####[facility]ATORYCLIA [id number] [address] IMMATURE GRAN % 0.5 % Normal [facility] Comment on above: Order Comment: Speci men Type: BLOOD SPECIMENOrdering Facility: [facility] Address: [address] [place] [address] Performed By: #### 5 7021-8 ####[facility]ATORYCLIA [id number] [address] IMMATURE GRAN ABS 0.06 k/uL Normal <0.10 [facility] Comment on above: Order Comment: Speci men Type: BLOOD SPECIMENOrdering Facility: [facility] Address: [address] [place] [address] Performed By: #### 5 7021-8 ####[facility]ATORYCLIA [id number] [address] [place] Lymphocytes (Bld) [#/Vol] 2.17 10*3/uL Normal 1.00-4.00 [facility] Comment on above: Order Comment: Speci men Type: BLOOD SPECIMENOrdering Facility: [facility] Address: [address] [place] [address] Performed By: #### 5 7021-8 ####[facility]ATORYCLIA [id number] [address] Lymphocytes/100 WBC (Bld) 18.7 % Normal [facility] Comment on above: Order Comment: Speci men Type: BLOOD SPECIMENOrdering Facility: [facility] Address: [address] [place] [address] Performed By: #### 5 7021-8 ####[facility] LABORATORYCLIA [id number] [address] [place] MCH (RBC) [Entitic mass] 28.9 pg Normal 26.0-34.0 [facility] Comment on above: Order Comment: Speci men Type: BLOOD SPECIMENOrdering Facility: [facility] Address: [address] [place] [address] Performed By: #### 5 7021-8 ####[facility] LABORATORYCLIA [id number] [address] STATES [facility] MCHC (RBC) [Mass/Vol] 31.2 g/dL Normal 30.5-36.0 [facility] Comment on above: Order Comment: Speci men Type: BLOOD SPECIMENOrdering Facility: [facility] Address: [address] [place] [address] Performed By: #### 5 7021-8 ####[facility] LABORATORYCLIA [id number] [address] MCV (RBC) [Entitic vol] 92.8 fL Normal 80.0-100.0 [facility] Comment on above: Order Comment: Speci men Type: BLOOD SPECIMENOrdering Facility: [facility] Address: [address] [place] [address] Performed By: #### 5 7021-8 ####[facility] LABORATORYCLIA [id number] [address] STATES OF [facility] Monocytes (Bld) [#/Vol] 0.71 10*3/uL Normal <0.87 [facility] Comment on above: Order Comment: Speci men Type: BLOOD SPECIMENOrdering Facility: [facility] Address: [address] [place] [address] Performed By: #### 5 7021-8 ####[facility] LABORATORYCLIA [id number] [address] Monocytes/100 WBC (Bld) 6.1 % Normal [facility] Comment on above: Order Comment: Speci men Type: BLOOD SPECIMENOrdering Facility: [facility] Address: [address] [place] [address] Performed By: #### 5 7021-8 ####[facility] LABORATORYCLIA [id number] [address] [place] Neutrophils (Bld) [#/Vol] 8.19 10*3/uL High 1.45-7.50 [facility] Comment on above: Order Comment: Speci men Type: BLOOD SPECIMENOrdering Facility: [facility] Address: [address] [address] Performed By: #### 5 7021-8 ####[facility] LABORATORYCLIA [id number] [address] Neutrophils/100 WBC (Bld) 70.8 % Normal [facility] Comment on above: Order Comment: Speci men Type: BLOOD SPECIMENOrdering Facility: [facility] Address: [address] [place] [address] Performed By: #### 5 7021-8 ####[facility]ATORYCLIA [id number] [address] Nucleated RBC (Bld) [#/Vol] 10*3/uL Normal <0.01 [facility] Comment on above: Order Comment: Speci men Type: BLOOD SPECIMENOrdering Facility: [facility] Address: [address] [place] [address] Performed By: #### 5 7021-8 ####[facility] LABORATORYCLIA [id number] [address] Nucleated RBC/100 WBC (Bld) [Ratio] 0.0 /100 WBC Normal [facility] Comment on above: Order Comment: Speci men Type: BLOOD SPECIMENOrdering Facility: [facility] Address: [address] [place] [address] Performed By: #### 5 7021-8 ####[facility] LABORATORYCLIA [id number] [address] Platelet mean volume (Bld) [Entitic vol] 9.6 fL Normal 9.0-12.7 [facility] Comment on above: Order Comment: Speci men Type: BLOOD SPECIMENOrdering Facility: [facility] Address: [address] [place] [address] Performed By: #### 5 7021-8 ####[facility] LABORATORYCLIA [id number] [address] Platelets (Bld) [#/Vol] 339 10*3/uL Normal 150-400 [facility] Comment on above: Order Comment: Speci men Type: BLOOD SPECIMENOrdering Facility: [facility] Address: [address] [place] [address] Performed By: #### 5 7021-8 ####[facility] LABORATORYCLIA [id number] [place] [address] [place] RBC (Bld) [#/Vol] 3.32 10*6/uL Low 4.20-6.00 [facility] Comment on above: Order Comment: Speci men Type: BLOOD SPECIMENOrdering Facility: [facility] Address: [address] [place] [address] Performed By: #### 5 7021-8 ####[facility] LABORATORYCLIA [id number] [address] WBC (Bld) [#/Vol] 11.59 10*3/uL High 3.70-11.00 [facility] Comment on above: Order Comment: Speci men Type: BLOOD SPECIMENOrdering Facility: [facility] Address: [address] [place] [address] Performed By: #### 5 7021-8 ####[facility] LABORATORYCLIA [id number] [address] [place] CT BRAIN WO IVCONon 08-06-[address] BRAIN WO IVCON Normal [facility] Magnesium SerPl-mCncon 08-05 Magnesium [Mass/Vol] 2.2 mg/dL Normal 1.7-2.3 [facility] Comment on above: Order Comment: Speci men Type: BLOOD SPECIMENOrdering Facility: [facility] Address: [address] [place] [address] Performed By: #### 1 9123-9, 2777-1 ####[facility] LABORATORYCLIA [id number] [address] [place] NURSING PROGon 08-05-2021 NURSING PROG Normal [facility] NURSING PROG Normal [facility] NUTRITIONon 08-05-2021 NUTRITION Normal [facility] OPERATIVE NOon 08-05-2021 OPERATIVE NO Normal [facility] Phosphate SerPl-mCncon 08-05 Phosphate [Mass/Vol] 4.6 mg/dL Normal 2.7-4.8 [facility] Comment on above: Order Comment: Speci men Type: BLOOD SPECIMENOrdering Facility: [facility] Address: [address] [place] [address] Performed By: #### 1 9123-9, 2777-1 ####[facility] LABORATORYCLIA [id number] [address] THERAPY NTon 08-05-2021 THERAPY NT Normal [facility] THERAPY NT Normal [facility] Urinalysis complete panel (U )on 08-05-2021 Bilirubin Ql (U) Negative Normal Negative [facility] Comment on above: Order Comment: Speci men Type: URINE SPECIMENOrdering Facility: [facility] Address: [address] [place] [address] Performed By: #### 2 4356-8 ####[facility]ORATORYCLIA [id number] [address] [place] Clarity (Unsp spec) Clear Normal Clear [facility] Comment on above: Order Comment: Speci men Type: URINE SPECIMENOrdering Facility: [facility] Address: [address] [place] [address] Performed By: #### 2 4356-8 ####[facility]ORATORYCLIA [id number] [address] [place] Color (U) Light Yellow Normal yellow [facility] Comment on above: Order Comment: Speci men Type: URINE SPECIMENOrdering Facility: [facility] Address: [address] [place] [address] Performed By: #### 2 4356-8 ####[facility] LABORATORYCLIA [id number] [address] [place] Epithelial cells LM.HPF (Urine sed) [#/Area] Few Abnormal None Seen [facility] Comment on above: Order Comment: Speci men Type: URINE SPECIMENOrdering Facility: [facility] Address: [address] [place] [address] Performed By: #### 2 4356-8 ####[facility] LABORATORYCLIA [id number] [address] Glucose Test strip (U) [Mass/Vol] Negative Normal Negative [facility] Comment on above: Order Comment: Speci men Type: URINE SPECIMENOrdering Facility: [facility] Address: [address] [place] [address] Performed By: #### 2 4356-8 ####[facility]ORATORYCLIA [id number] [address] Hemoglobin Ql (U) Negative Normal Negative [facility] Comment on above: Order Comment: Speci men Type: URINE SPECIMENOrdering Facility: [facility] Address: [address] [place] [address] Performed By: #### 2 4356-8 ####[facility] LABORATORYCLIA [id number] [address] Hyaline casts (Urine sed) [#/Area] 1-3 /LPF Abnormal 0 /LPF [facility] Comment on above: Order Comment: Speci men Type: URINE SPECIMENOrdering Facility: [facility] Address: [address] [place] [address] Performed By: #### 2 4356-8 ####[facility] LABORATORYCLIA [id number] [address] Ketones Ql (U) Negative Normal Negative [facility] Comment on above: Order Comment: Speci men Type: URINE SPECIMENOrdering Facility: [facility] Address: [address] [place] [address] Performed By: #### 2 4356-8 ####[facility] LABORATORYCLIA [id number] [place] [address] Leukocyte esterase Test strip Ql (U) Negative Normal Negative [facility] Comment on above: Order Comment: Speci men Type: URINE SPECIMENOrdering Facility: [facility] Address: [address] [place] [address] Performed By: #### 2 4356-8 ####[facility] LABORATORYCLIA [id number] [address] STATES [facility] Nitrite Ql (U) Negative Normal Negative [facility] Comment on above: Order Comment: Speci men Type: URINE SPECIMENOrdering Facility: [facility] Address: [address] [place] [address] Performed By: #### 2 4356-8 ####[facility] LABORATORYCLIA [id number] [address] STATES [facility] pH (U) 6.0 [pH] Normal 5.0-8.0 [facility] Comment on above: Order Comment: Speci men Type: URINE SPECIMENOrdering Facility: [facility] Address: [address] [place] [address] Performed By: #### 2 4356-8 ####[facility] LABORATORYCLIA [id number] [address] Protein (U) [Mass/Vol] Negative Normal Negative [facility] Comment on above: Order Comment: Speci men Type: URINE SPECIMENOrdering Facility: [facility] Address: [address] [place] [address] Performed By: #### 2 4356-8 ####[facility]ORATORYCLIA [id number] [address] RBC LM.HPF (Urine sed) [#/Area] 0-3 /HPF Normal 0-3 /HPF [facility] Comment on above: Order Comment: Speci men Type: URINE SPECIMENOrdering Facility: [facility] Address: [address] [place] [address] Performed By: #### 2 4356-8 ####[facility]ORATORYCLIA [id number] [address] [place] Specific gravity (U) [Rel density] 1.015 Normal 1.005-1.030 [facility] Comment on above: Order Comment: Speci men Type: URINE SPECIMENOrdering Facility: [facility] Address: [address] [place] [address] Performed By: #### 2 4356-8 ####[facility]ORATORYCLIA [id number] [address] [place] Urobilinogen Ql (U) Normal Normal Negative [facility] Comment on above: Order Comment: Speci men Type: URINE SPECIMENOrdering Facility: [facility] Address: [address] [place] [address] Performed By: #### 2 4356-8 ####[facility]ORATORYCLIA [id number] [address] [place] WBC LM.HPF (Urine sed) [#/Area] 0-5 /HPF Normal 0-5 /HPF [facility] Comment on above: Order Comment: Speci men Type: URINE SPECIMENOrdering Facility: [facility] Address: [address] [place] [address] Performed By: #### 2 4356-8 ####[facility] LABORATORYCLIA [id number] [address] [place] XR ABDOMEN 1V SUPINEon 08-05 XR ABDOMEN 1V SUPINE Normal [facility] XR CHEST 1V FRONTALon 2021 XR CHEST 1V FRONTAL Normal [facility] XR CHEST 1V FRONTAL Normal [facility] XR NECK SOFT TISSUE 2V AP/LA Ton 08-05-2021 XR NECK SOFT TISSUE 2V AP/LAT Normal [facility] XR SKULL 2V AP/LATon 022 XR SKULL 2V AP/LAT Normal [facility] ALLIED HEALTHon 08-04-2021 ALLIED HEALTH Normal [facility] Bacteria Bld Culton 08-05-19 22 Bacteria identified Cx Nom (Bld) CULTURE, BLOOD: No growth 5 days Normal [facility] Comment on above: Performed By: #### 6 00-7 ####[facility]ORATORYCLIA [id number] [address] Bacteria identified Cx Nom (Bld) CULTURE, BLOOD: No growth 5 days Normal [facility] Comment on above: Performed By: #### 6 00-7 ####[facility] LABORATORYCLIA [id number] [address] OF [facility] CBC W Auto Differential pane l (Bld)on 08-04-2021 Basophils (Bld) [#/Vol] 0.05 10*3/uL Normal <0.11 [facility] Comment on above: Order Comment: Speci men Type: BLOOD SPECIMENOrdering Facility: [facility] Address: [address] [place] [address] Performed By: #### 5 7021-8 ####[facility]ORATORYCLIA [id number] [address] Basophils/100 WBC (Bld) 0.4 % Normal [facility] Comment on above: Order Comment: Speci men Type: BLOOD SPECIMENOrdering Facility: [facility] Address: [address] [place] [address] Performed By: #### 5 7021-8 ####[facility]ORATORYCLIA [id number] [address] Differential cell count method Nom (Bld) Auto Normal [facility] Comment on above: Order Comment: Speci men Type: BLOOD SPECIMENOrdering Facility: [facility] Address: [address] [place] [address] Performed By: #### 5 7021-8 ####[facility] LABORATORYCLIA [id number] [address] OF [facility] Eosinophils (Bld) [#/Vol] 0.21 10*3/uL Normal <0.46 [facility] Comment on above: Order Comment: Speci men Type: BLOOD SPECIMENOrdering Facility: [facility] Address: [address] [place] [address] Performed By: #### 5 7021-8 ####[facility] LABORATORYCLIA [id number] [address] STATES [facility] Eosinophils/100 WBC (Bld) 1.7 % Normal [facility] Comment on above: Order Comment: Speci men Type: BLOOD SPECIMENOrdering Facility: [facility] Address: [address] [place] [address] Performed By: #### 5 7021-8 ####[facility] LABORATORYCLIA [id number] [address] [place] Erythrocyte distribution width (RBC) [Ratio] 18.1 % High 11.5-15.0 [facility] Comment on above: Order Comment: Speci men Type: BLOOD SPECIMENOrdering Facility: [facility] Address: [address] [place] [address] Performed By: #### 5 7021-8 ####[facility]ORATORYCLIA [id number] [address] Hematocrit (Bld) [Volume fraction] 32.0 % Low 39.0-51.0 [facility] Comment on above: Order Comment: Speci men Type: BLOOD SPECIMENOrdering Facility: [facility] Address: [address] [place] [address] Performed By: #### 5 7021-8 ####[facility]ORATORYCLIA [id number] [address] [place] Hemoglobin (Bld) [Mass/Vol] 10.0 g/dL Low 13.0-17.0 [facility] Comment on above: Order Comment: Speci men Type: BLOOD SPECIMENOrdering Facility: [facility] Address: [address] [place] [address] Performed By: #### 5 7021-8 ####[facility]ORATORYCLIA [id number] [address] [place] IMMATURE GRAN % 0.6 % Normal [facility] Comment on above: Order Comment: Speci men Type: BLOOD SPECIMENOrdering Facility: [facility] Address: [address] [place] [address] Performed By: #### 5 7021-8 ####[facility]ATORYCLIA [id number] [address] IMMATURE GRAN ABS 0.08 k/uL Normal <0.10 [facility] Comment on above: Order Comment: Speci men Type: BLOOD SPECIMENOrdering Facility: [facility] Address: [address] [place] [address] Performed By: #### 5 7021-8 ####[facility]ATORYCLIA [id number] [address] Lymphocytes (Bld) [#/Vol] 2.55 10*3/uL Normal 1.00-4.00 [facility] Comment on above: Order Comment: Speci men Type: BLOOD SPECIMENOrdering Facility: [facility] Address: [address] [place] [address] Performed By: #### 5 7021-8 ####[facility]ATORYCLIA [id number] [address] Lymphocytes/100 WBC (Bld) 20.5 % Normal [facility] Comment on above: Order Comment: Speci men Type: BLOOD SPECIMENOrdering Facility: [facility] Address: [address] [place] [address] Performed By: #### 5 7021-8 ####[facility]ORATORYCLIA [id number] [address] MCH (RBC) [Entitic mass] 28.9 pg Normal 26.0-34.0 [facility] Comment on above: Order Comment: Speci men Type: BLOOD SPECIMENOrdering Facility: [facility] Address: [address] [place] [address] Performed By: #### 5 7021-8 ####[facility]ATORYCLIA [id number] [address] MCHC (RBC) [Mass/Vol] 31.3 g/dL Normal 30.5-36.0 [facility] Comment on above: Order Comment: Speci men Type: BLOOD SPECIMENOrdering Facility: [facility] Address: [address] [place] [address] Performed By: #### 5 7021-8 ####[facility] LABORATORYCLIA [id number] [address] [place] MCV (RBC) [Entitic vol] 92.5 fL Normal 80.0-100.0 [facility] Comment on above: Order Comment: Speci men Type: BLOOD SPECIMENOrdering Facility: [facility] Address: [address] [place] [address] Performed By: #### 5 7021-8 ####[facility]ORATORYCLIA [id number] [address] [place] Monocytes (Bld) [#/Vol] 0.85 10*3/uL Normal <0.87 [facility] Comment on above: Order Comment: Speci men Type: BLOOD SPECIMENOrdering Facility: [facility] Address: [address] [place] [address] Performed By: #### 5 7021-8 ####[facility] LABORATORYCLIA [id number] [address] OF [facility] Monocytes/100 WBC (Bld) 6.8 % Normal [facility] Comment on above: Order Comment: Speci men Type: BLOOD SPECIMENOrdering Facility: [facility] Address: [address] [place] [address] Performed By: #### 5 7021-8 ####[facility] LABORATORYCLIA [id number] [address] [place] Neutrophils (Bld) [#/Vol] 8.68 10*3/uL High 1.45-7.50 [facility] Comment on above: Order Comment: Speci men Type: BLOOD SPECIMENOrdering Facility: [facility] Address: [address] [place] [address] Performed By: #### 5 7021-8 ####[facility]ORATORYCLIA [id number] [address] Neutrophils/100 WBC (Bld) 70.0 % Normal [facility] Comment on above: Order Comment: Speci men Type: BLOOD SPECIMENOrdering Facility: [facility] Address: [address] [place] [address] Performed By: #### 5 7021-8 ####[facility]ORATORYCLIA [id number] [address] Nucleated RBC (Bld) [#/Vol] 10*3/uL Normal <0.01 [facility] Comment on above: Order Comment: Speci men Type: BLOOD SPECIMENOrdering Facility: [facility] Address: [address] [place] [address] Performed By: #### 5 7021-8 ####[facility] LABORATORYCLIA [id number] [address] STATES [facility] Nucleated RBC/100 WBC (Bld) [Ratio] 0.0 /100 WBC Normal [facility] Comment on above: Order Comment: Speci men Type: BLOOD SPECIMENOrdering Facility: [facility] Address: [address] [place] [address] Performed By: #### 5 7021-8 ####[facility]ORATORYCLIA [id number] [address] [place] Platelet mean volume (Bld) [Entitic vol] 10.0 fL Normal 9.0-12.7 [facility] Comment on above: Order Comment: Speci men Type: BLOOD SPECIMENOrdering Facility: [facility] Address: [address] [place] [address] Performed By: #### 5 7021-8 ####[facility]ORATORYCLIA [id number] [address] [place] Platelets (Bld) [#/Vol] 393 10*3/uL Normal 150-400 [facility] Comment on above: Order Comment: Speci men Type: BLOOD SPECIMENOrdering Facility: [facility] Address: [address] [place] [address] Performed By: #### 5 7021-8 ####[facility]ATORYCLIA [id number] [address] RBC (Bld) [#/Vol] 3.46 10*6/uL Low 4.20-6.00 [facility] Comment on above: Order Comment: Speci men Type: BLOOD SPECIMENOrdering Facility: [facility] Address: [address] [place] [address] Performed By: #### 5 7021-8 ####[facility]ORATORYCLIA [id number] [address] WBC (Bld) [#/Vol] 12.42 10*3/uL High 3.70-11.00 [facility] Comment on above: Order Comment: Speci men Type: BLOOD SPECIMENOrdering Facility: [facility] Address: [address] [place] [address] Performed By: #### 5 7021-8 ####[facility] LABORATORYCLIA [id number] [address] BRAIN WO IVCONon 08-05-[address] BRAIN WO IVCON Normal [facility] Lactate (Bld) [Moles/Vol]on 08-04-2021 Lactate [Moles/Vol] 1.4 mmol/L Normal 0.5-2.2 [facility] Comment on above: Order Comment: Speci men Type: BLOOD SPECIMENOrdering Facility: [facility] Address: [address] [place] [address] Performed By: #### 3 2693-4 ####[facility]ORATORYCLIA [id number] [address] PROCALCITONIN (LAB)on 2021 Procalcitonin [Mass/Vol] 0.08 ng/mL Normal <0.09 [facility] Comment on above: Order Comment: Speci men Type: BLOOD SPECIMENOrdering Facility: [facility] Address: [facility] [place] [facility] [place] [address] Result Comment: For a guided interpretation of test results, please visit the Change in Procalcitonin Calculator, [email or web address]. Performed By: #### P ROCAL ####[facility] LABORATORYCLIA [id number] [address] Prealbumin [Mass/Vol]on 07-07 Prealbumin Nephelometry [Mass/Vol] 35 mg/dL Normal [facility] Comment on above: Order Comment: Speci men Type: BLOOD SPECIMENOrdering Facility: [facility] Address: [address] [place] [address] Performed By: #### 1 4338-8 ####[facility] LABORATORYCLIA [id number] [address] SARS-CoV-2 RNA Resp Ql MEGAN+p robeon 08-04-2021 SARS-CoV-2 (COVID-19) RNA MEGAN+probe Ql (Resp) COVID 19 RESULT: SARS-CoV-2 (Agent of COVID-19) Not Detected by RT-PCR or equivalent method. This test has been authorized by FDA under an Emergency Use Authorization (EUA). Normal [facility] Comment on above: Performed By: #### 9 4500-6 ####[facility] LABORATORYCLIA [id number] [address] STATES OF [facility] TYPE AND SCREENon 08-04-2021 ABO O Normal [facility] Comment on above: Order Comment: Speci men Type: BLOOD SPECIMENOrdering Facility: [facility] Address: [address] [address] Performed By: #### T SCR ####[facility] BLOOD BANKCLIA [id number] [address] HISTORICAL AB SCR STATUS Negative Normal [facility] Comment on above: Order Comment: Speci men Type: BLOOD SPECIMENOrdering Facility: [facility] Address: [address] [address] Performed By: #### T SCR ####[facility] BLOOD BANKCLIA [id number] [address] Rh Nom (Bld) Positive Normal [facility] Comment on above: Order Comment: Speci men Type: BLOOD SPECIMENOrdering Facility: [facility] Address: [address] [place] [address] Performed By: #### T SCR ####[facility] BLOOD BANKCLIA [id number] [address] TYPE AND SCREEN EXPIRATION 08/07/2021 23:59 Normal [facility] Comment on above: Order Comment: Speci men Type: BLOOD SPECIMENOrdering Facility: [facility] Address: [address] [place] [address] Performed By: #### T SCR ####[facility] BLOOD BANKCLIA [id number] [address] aPTT PPPon 08-04-2021 aPTT Coag (PPP) [Time] 51.8 s High 23.0-32.4 [facility] Comment on above: Order Comment: Speci men Type: BLOOD SPECIMENOrdering Facility: [facility] Address: [address] [place] [address] Performed By: #### 1 4979-9 ####[facility] LABORATORYCLIA [id number] [address] Basic metabolic 2000 panelon 08-03-2021 Anion gap [Moles/Vol] 9 mmol/L Normal 9-18 [facility] Comment on above: Order Comment: Speci men Type: BLOOD SPECIMENOrdering Facility: [facility] Address: [address] [place] [address] Performed By: #### 2 4321-2, 44786-4, 2777-1 ####[facility] LABORATORYCLIA [id number] [address] Calcium [Mass/Vol] 9.3 mg/dL Normal 8.5-10.2 [facility] Comment on above: Order Comment: Speci men Type: BLOOD SPECIMENOrdering Facility: [facility] Address: [address] [place] [address] Performed By: #### 2 4321-2, , 2776-05 ####[facility] LABORATORYCLIA [id number] [place] [address] [place] Chloride [Moles/Vol] 97 mmol/L Normal 97-105 [facility] Comment on above: Order Comment: Speci men Type: BLOOD SPECIMENOrdering Facility: [facility] Address: [address] [place] [address] Performed By: #### 2 4321-2, , 2776-05 ####[facility] LABORATORYCLIA [id number] [place] [address] [place] CO2 [Moles/Vol] 27 mmol/L Normal 22-30 [facility] Comment on above: Order Comment: Speci men Type: BLOOD SPECIMENOrdering Facility: [facility] Address: [address] [place] [address] Performed By: #### 2 4321-2, , 2776-05 ####[facility] LABORATORYCLIA [id number] [address] [place] Creatinine [Mass/Vol] 0.63 mg/dL Low 0.73-1.22 [facility] Comment on above: Order Comment: Speci men Type: BLOOD SPECIMENOrdering Facility: [facility] Address: [address] [place] [address] Performed By: #### 2 4321-2, , 2776-05 ####[facility] LABORATORYCLIA [id number] [address] ESTIMATED GLOMERULAR FILTRATION RATE 103 mL/min/1.73m??? Normal >=60 [facility] Comment on above: Order Comment: Speci men Type: BLOOD SPECIMENOrdering Facility: [facility] Address: [address] [place] [address] Result Comment: Luzmaria mated Glomerular Filtration Rate [...] #### 2 4321-2, , 2776-05 ####[facility] POINTIA [id number] [place] [address] [place] Glucose [Mass/Vol] 136 mg/dL High 74-99 [facility] Comment on above: Order Comment: Shira feldman Type: BLOOD SPECIMENOrdering Facility: [facility] Address: [address] [place] [address] Result Comment: The [place] [employer] (ADA) provides guidance for cutoff [...] Standards of Medical Care in Diabetes 2016, [place] [employer]. Diabetes Care. 2016.39(Suppl 1). Performed By: #### 2 4321-2, , 2776-05 ####[facility] LABORATORYCLIA [id number] [place] [id number] [place] Potassium [Moles/Vol] 4.1 mmol/L Normal 3.7-5.1 [facility] Comment on above: Order Comment: Shira feldman Type: BLOOD SPECIMENOrdering Facility: [facility] Address: [address] [id number] Performed By: #### 2 4321-2, , 2776-05 ####[facility] LABORATORYCLIA [id number] [place] [address] [place] Sodium [Moles/Vol] 133 mmol/L Low 136-144 [facility] Comment on above: Order Comment: Speci men Type: BLOOD SPECIMENOrdering Facility: [facility] Address: [address] [place] [address] Performed By: #### 2 4321-2, 21025-4, 2777-1 ####[facility] LABORATORYCLIA [id number] [address] [place] Urea nitrogen [Mass/Vol] 40 mg/dL High 9-24 [facility] Comment on above: Order Comment: Speci men Type: BLOOD SPECIMENOrdering Facility: [facility] Address: [address] [place] [address] Performed By: #### 2 4321-2, , 2777 ####[facility] LABORATORYCLIA [id number] [address] OF [facility] CASE MANAGEMon 08-03-2021 CASE MANAGEM Normal [facility] CBC W Auto Differential pane l (Bld)on 08-03-2021 Basophils (Bld) [#/Vol] 0.06 10*3/uL Normal <0.11 [facility] Comment on above: Order Comment: Speci men Type: BLOOD SPECIMENOrdering Facility: [facility] Address: [address] [place] [address] Performed By: #### 5 7021-8 ####[facility] LABORATORYCLIA [id number] [address] [place] Basophils/100 WBC (Bld) 0.5 % Normal [facility] Comment on above: Order Comment: Speci men Type: BLOOD SPECIMENOrdering Facility: [facility] Address: [address] [place] [address] Performed By: #### 5 7021-8 ####[facility] LABORATORYCLIA [id number] [place] [address] [place] Differential cell count method Nom (Bld) Auto Normal [facility] Comment on above: Order Comment: Speci men Type: BLOOD SPECIMENOrdering Facility: [facility] Address: [address] [place] [address] Performed By: #### 5 7021-8 ####[facility] LABORATORYCLIA [id number] [address] [place] Eosinophils (Bld) [#/Vol] 0.23 10*3/uL Normal <0.46 [facility] Comment on above: Order Comment: Speci men Type: BLOOD SPECIMENOrdering Facility: [facility] Address: [address] [place] [address] Performed By: #### 5 7021-8 ####[facility] LABORATORYCLIA [id number] [address] Eosinophils/100 WBC (Bld) 1.8 % Normal [facility] Comment on above: Order Comment: Speci men Type: BLOOD SPECIMENOrdering Facility: [facility] Address: [address] [place] [address] Performed By: #### 5 7021-8 ####[facility] LABORATORYCLIA [id number] [address] Erythrocyte distribution width (RBC) [Ratio] 17.6 % High 11.5-15.0 [facility] Comment on above: Order Comment: Speci men Type: BLOOD SPECIMENOrdering Facility: [facility] Address: [address] [place] [address] Performed By: #### 5 7021-8 ####[facility] LABORATORYCLIA [id number] [address] Hematocrit (Bld) [Volume fraction] 30.7 % Low 39.0-51.0 [facility] Comment on above: Order Comment: Speci men Type: BLOOD SPECIMENOrdering Facility: [facility] Address: [address] [place] [address] Performed By: #### 5 7021-8 ####[facility] LABORATORYCLIA [id number] [address] OF [facility] Hemoglobin (Bld) [Mass/Vol] 9.3 g/dL Low 13.0-17.0 [facility] Comment on above: Order Comment: Speci men Type: BLOOD SPECIMENOrdering Facility: [facility] Address: [address] [place] [address] Performed By: #### 5 7021-8 ####[facility] LABORATORYCLIA [id number] [address] IMMATURE GRAN % 0.6 % Normal [facility] Comment on above: Order Comment: Speci men Type: BLOOD SPECIMENOrdering Facility: [facility] Address: [address] [place] [address] Performed By: #### 5 7021-8 ####[facility] LABORATORYCLIA [id number] [address] IMMATURE GRAN ABS 0.08 k/uL Normal <0.10 [facility] Comment on above: Order Comment: Speci men Type: BLOOD SPECIMENOrdering Facility: [facility] Address: [address] [place] [address] Performed By: #### 5 7021-8 ####[facility] LABORATORYCLIA [id number] [address] Lymphocytes (Bld) [#/Vol] 2.45 10*3/uL Normal 1.00-4.00 [facility] Comment on above: Order Comment: Speci men Type: BLOOD SPECIMENOrdering Facility: [facility] Address: [address] [place] [address] Performed By: #### 5 7021-8 ####[facility] LABORATORYCLIA [id number] [address] Lymphocytes/100 WBC (Bld) 19.7 % Normal [facility] Comment on above: Order Comment: Speci men Type: BLOOD SPECIMENOrdering Facility: [facility] Address: [address] [place] [address] Performed By: #### 5 7021-8 ####[facility] LABORATORYCLIA [id number] [address] MCH (RBC) [Entitic mass] 28.2 pg Normal 26.0-34.0 [facility] Comment on above: Order Comment: Speci men Type: BLOOD SPECIMENOrdering Facility: [facility] Address: [address] [place] [address] Performed By: #### 5 7021-8 ####[facility] LABORATORYCLIA [id number] [address] MCHC (RBC) [Mass/Vol] 30.3 g/dL Low 30.5-36.0 [facility] Comment on above: Order Comment: Speci men Type: BLOOD SPECIMENOrdering Facility: [facility] Address: [address] [place] [address] Performed By: #### 5 7021-8 ####[facility] LABORATORYCLIA [id number] [address] MCV (RBC) [Entitic vol] 93.0 fL Normal 80.0-100.0 [facility] Comment on above: Order Comment: Speci men Type: BLOOD SPECIMENOrdering Facility: [facility] Address: [address] [place] [address] Performed By: #### 5 7021-8 ####[facility] LABORATORYCLIA [id number] [address] Monocytes (Bld) [#/Vol] 0.72 10*3/uL Normal <0.87 [facility] Comment on above: Order Comment: Speci men Type: BLOOD SPECIMENOrdering Facility: [facility] Address: [address] [place] [address] Performed By: #### 5 7021-8 ####[facility] LABORATORYCLIA [id number] [address] Monocytes/100 WBC (Bld) 5.8 % Normal [facility] Comment on above: Order Comment: Speci men Type: BLOOD SPECIMENOrdering Facility: [facility] Address: [address] [address] Performed By: #### 5 7021-8 ####[facility] LABORATORYCLIA [id number] [address] [place] Neutrophils (Bld) [#/Vol] 8.92 10*3/uL High 1.45-7.50 [facility] Comment on above: Order Comment: Speci men Type: BLOOD SPECIMENOrdering Facility: [facility] Address: [address] [place] [address] Performed By: #### 5 7021-8 ####[facility] LABORATORYCLIA [id number] [address] [place] Neutrophils/100 WBC (Bld) 71.6 % Normal [facility] Comment on above: Order Comment: Speci men Type: BLOOD SPECIMENOrdering Facility: [facility] Address: [address] [place] [address] Performed By: #### 5 7021-8 ####[facility] LABORATORYCLIA [id number] [address] [place] Nucleated RBC (Bld) [#/Vol] 10*3/uL Normal <0.01 [facility] Comment on above: Order Comment: Speci men Type: BLOOD SPECIMENOrdering Facility: [facility] Address: [address] [place] [address] Performed By: #### 5 7021-8 ####[facility] LABORATORYCLIA [id number] [address] [place] Nucleated RBC/100 WBC (Bld) [Ratio] 0.0 /100 WBC Normal [facility] Comment on above: Order Comment: Speci men Type: BLOOD SPECIMENOrdering Facility: [facility] Address: [address] [place] [address] Performed By: #### 5 7021-8 ####[facility] LABORATORYCLIA [id number] [place] [address] Platelet mean volume (Bld) [Entitic vol] 10.2 fL Normal 9.0-12.7 [facility] Comment on above: Order Comment: Speci men Type: BLOOD SPECIMENOrdering Facility: [facility] Address: [address] [place] [address] Performed By: #### 5 7021-8 ####[facility] LABORATORYCLIA [id number] [address] [place] Platelets (Bld) [#/Vol] 352 10*3/uL Normal 150-400 [facility] Comment on above: Order Comment: Speci men Type: BLOOD SPECIMENOrdering Facility: [facility] Address: [address] [place] [address] Performed By: #### 5 7021-8 ####[facility] LABORATORYCLIA [id number] [address] STATES OF [facility] RBC (Bld) [#/Vol] 3.30 10*6/uL Low 4.20-6.00 [facility] Comment on above: Order Comment: Speci men Type: BLOOD SPECIMENOrdering Facility: [facility] Address: [address] [place] [address] Performed By: #### 5 7021-8 ####[facility] LABORATORYCLIA [id number] [address] [place] WBC (Bld) [#/Vol] 12.46 10*3/uL High 3.70-11.00 [facility] Comment on above: Order Comment: Speci men Type: BLOOD SPECIMENOrdering Facility: [facility] Address: [address] [place] [address] Performed By: #### 5 7021-8 ####[facility] LABORATORYCLIA [id number] [address] OF [facility] CONSULT PROGon 08-03-2021 CONSULT PROG Normal [facility] Magnesium SerPl-mCncon 08-03 Magnesium [Mass/Vol] 2.2 mg/dL Normal 1.7-2.3 [facility] Comment on above: Order Comment: Speci men Type: BLOOD SPECIMENOrdering Facility: [facility] Address: [address] [place] [address] Performed By: #### 2 4321-2, 28658-9, 2776- ####[facility] LABORATORYCLIA [id number] [address] STATES OF [facility] NURSING PROGon 08-03-2021 NURSING PROG Normal [facility] Phosphate SerPl-mCncon 08-03 Phosphate [Mass/Vol] 4.2 mg/dL Normal 2.7-4.8 [facility] Comment on above: Order Comment: Speci men Type: BLOOD SPECIMENOrdering Facility: [facility] Address: [address] [place] [address] Performed By: #### 2 4321-2, , 2776-05 ####[facility] LABORATORYCLIA [id number] [address] aPTT PPPon 08-03-2021 aPTT Coag (PPP) [Time] 50.0 s High 23.0-32.4 [facility] Comment on above: Order Comment: Speci men Type: BLOOD SPECIMENOrdering Facility: [facility] Address: [address] [place] [address] Performed By: #### 1 4979-9 ####[facility] LABORATORYCLIA [id number] [address] STATES OF [facility] CBC W Auto Differential pane l (Bld)on 08-02-2021 Basophils (Bld) [#/Vol] 10*3/uL Normal <0.11 [facility] Comment on above: Order Comment: Speci men Type: BLOOD SPECIMENOrdering Facility: [facility] Address: [address] [place] [address] Performed By: #### 5 7021-8 ####[facility] LABORATORYCLIA [id number] [address] Basophils/100 WBC (Bld) 0.2 % Normal [facility] Comment on above: Order Comment: Speci men Type: BLOOD SPECIMENOrdering Facility: [facility] Address: [address] [place] [address] Performed By: #### 5 7021-8 ####[facility] LABORATORYCLIA [id number] [place] [address] [place] Differential cell count method Nom (Bld) Auto Normal [facility] Comment on above: Order Comment: Speci men Type: BLOOD SPECIMENOrdering Facility: [facility] Address: [address] [place] [address] Performed By: #### 5 7021-8 ####[facility] LABORATORYCLIA [id number] [place] [address] [place] Eosinophils (Bld) [#/Vol] 10*3/uL Normal <0.46 [facility] Comment on above: Order Comment: Speci men Type: BLOOD SPECIMENOrdering Facility: [facility] Address: [address] [place] [address] Performed By: #### 5 7021-8 ####[facility] LABORATORYCLIA [id number] [address] STATES OF [facility] Eosinophils/100 WBC (Bld) 0.0 % Normal [facility] Comment on above: Order Comment: Speci men Type: BLOOD SPECIMENOrdering Facility: [facility] Address: [address] [place] [address] Performed By: #### 5 7021-8 ####[facility] LABORATORYCLIA [id number] [place] [address] [place] Erythrocyte distribution width (RBC) [Ratio] 17.3 % High 11.5-15.0 [facility] Comment on above: Order Comment: Speci men Type: BLOOD SPECIMENOrdering Facility: [facility] Address: [address] [place] [address] Performed By: #### 5 7021-8 ####[facility] LABORATORYCLIA [id number] [address] Hematocrit (Bld) [Volume fraction] 30.8 % Low 39.0-51.0 [facility] Comment on above: Order Comment: Speci men Type: BLOOD SPECIMENOrdering Facility: [facility] Address: [address] [place] [address] Performed By: #### 5 7021-8 ####[facility] LABORATORYCLIA [id number] [address] [place] Hemoglobin (Bld) [Mass/Vol] 9.7 g/dL Low 13.0-17.0 [facility] Comment on above: Order Comment: Speci men Type: BLOOD SPECIMENOrdering Facility: [facility] Address: [address] [place] [address] Performed By: #### 5 7021-8 ####[facility] LABORATORYCLIA [id number] [address] IMMATURE GRAN % 0.5 % Normal [facility] Comment on above: Order Comment: Speci men Type: BLOOD SPECIMENOrdering Facility: [facility] Address: [address] [place] [address] Performed By: #### 5 7021-8 ####[facility] LABORATORYCLIA [id number] [address] IMMATURE GRAN ABS 0.07 k/uL Normal <0.10 [facility] Comment on above: Order Comment: Speci men Type: BLOOD SPECIMENOrdering Facility: [facility] Address: [address] [place] [address] Performed By: #### 5 7021-8 ####[facility] LABORATORYCLIA [id number] [address] [place] Lymphocytes (Bld) [#/Vol] 1.60 10*3/uL Normal 1.00-4.00 [facility] Comment on above: Order Comment: Speci men Type: BLOOD SPECIMENOrdering Facility: [facility] Address: [address] [place] [address] Performed By: #### 5 7021-8 ####[facility] LABORATORYCLIA [id number] [address] Lymphocytes/100 WBC (Bld) 12.1 % Normal [facility] Comment on above: Order Comment: Speci men Type: BLOOD SPECIMENOrdering Facility: [facility] Address: [address] [place] [address] Performed By: #### 5 7021-8 ####[facility] LABORATORYCLIA [id number] [address] MCH (RBC) [Entitic mass] 28.6 pg Normal 26.0-34.0 [facility] Comment on above: Order Comment: Speci men Type: BLOOD SPECIMENOrdering Facility: [facility] Address: [address] [place] [address] Performed By: #### 5 7021-8 ####[facility] LABORATORYCLIA [id number] [address] MCHC (RBC) [Mass/Vol] 31.5 g/dL Normal 30.5-36.0 [facility] Comment on above: Order Comment: Speci men Type: BLOOD SPECIMENOrdering Facility: [facility] Address: [address] [place] [address] Performed By: #### 5 7021-8 ####[facility] LABORATORYCLIA [id number] [address] MCV (RBC) [Entitic vol] 90.9 fL Normal 80.0-100.0 [facility] Comment on above: Order Comment: Speci men Type: BLOOD SPECIMENOrdering Facility: [facility] Address: [address] [place] [address] Performed By: #### 5 7021-8 ####[facility] LABORATORYCLIA [id number] [address] Monocytes (Bld) [#/Vol] 0.39 10*3/uL Normal <0.87 [facility] Comment on above: Order Comment: Speci men Type: BLOOD SPECIMENOrdering Facility: [facility] Address: [address] [place] [address] Performed By: #### 5 7021-8 ####[facility] LABORATORYCLIA [id number] [address] [place] Monocytes/100 WBC (Bld) 3.0 % Normal [facility] Comment on above: Order Comment: Speci men Type: BLOOD SPECIMENOrdering Facility: [facility] Address: [address] [place] [address] Performed By: #### 5 7021-8 ####[facility]ORATORYCLIA [id number] [place] [address] [place] Neutrophils (Bld) [#/Vol] 11.09 10*3/uL High 1.45-7.50 [facility] Comment on above: Order Comment: Speci men Type: BLOOD SPECIMENOrdering Facility: [facility] Address: [address] [place] [address] Performed By: #### 5 7021-8 ####[facility] LABORATORYCLIA [id number] [address] [place] Neutrophils/100 WBC (Bld) 84.2 % Normal [facility] Comment on above: Order Comment: Speci men Type: BLOOD SPECIMENOrdering Facility: [facility] Address: [address] [place] [address] Performed By: #### 5 7021-8 ####[facility]ATORYCLIA [id number] [place] [address] [place] Nucleated RBC (Bld) [#/Vol] 10*3/uL Normal <0.01 [facility] Comment on above: Order Comment: Speci men Type: BLOOD SPECIMENOrdering Facility: [facility] Address: [address] [place] [address] Performed By: #### 5 7021-8 ####[facility]ATORYCLIA [id number] [address] [place] Nucleated RBC/100 WBC (Bld) [Ratio] 0.0 /100 WBC Normal [facility] Comment on above: Order Comment: Speci men Type: BLOOD SPECIMENOrdering Facility: [facility] Address: [address] [place] [address] Performed By: #### 5 7021-8 ####[facility] LABORATORYCLIA [id number] [place] [address] [place] Platelet mean volume (Bld) [Entitic vol] 10.0 fL Normal 9.0-12.7 [facility] Comment on above: Order Comment: Speci men Type: BLOOD SPECIMENOrdering Facility: [facility] Address: [address] [place] [address] Performed By: #### 5 7021-8 ####[facility] LABORATORYCLIA [id number] [place] [address] [place] Platelets (Bld) [#/Vol] 358 10*3/uL Normal 150-400 [facility] Comment on above: Order Comment: Speci men Type: BLOOD SPECIMENOrdering Facility: [facility] Address: [address] [place] [address] Performed By: #### 5 7021-8 ####[facility] LABORATORYCLIA [id number] [place] [address] [place] RBC (Bld) [#/Vol] 3.39 10*6/uL Low 4.20-6.00 [facility] Comment on above: Order Comment: Speci men Type: BLOOD SPECIMENOrdering Facility: [facility] Address: [address] [place] [address] Performed By: #### 5 7021-8 ####[facility] LABORATORYCLIA [id number] [place] [address] [place] WBC (Bld) [#/Vol] 13.17 10*3/uL High 3.70-11.00 [facility] Comment on above: Order Comment: Speci men Type: BLOOD SPECIMENOrdering Facility: [facility] Address: [address] [place] [address] Performed By: #### 5 7021-8 ####[facility] LABORATORYCLIA [id number] [address] OF [facility] NURSING PROGon 08-02-2021 NURSING PROG Normal [facility] THERAPY NTon 08-02-2021 THERAPY NT Normal [facility] aPTT PPPon 08-02-2021 aPTT Coag (PPP) [Time] 54.9 s High 23.0-32.4 [facility] Comment on above: Order Comment: Speci men Type: BLOOD SPECIMENOrdering Facility: [facility] Address: [address] [place] [address] Performed By: #### 1 4979-9 ####[facility] LABORATORYCLIA [id number] [address] [place] ALLIED HEALTHon 08-01-2021 ALLIED HEALTH Normal [facility] ALLIED HEALTH Normal [facility] Basic metabolic 2000 panelon 08-01-2021 Anion gap [Moles/Vol] 12 mmol/L Normal 9-18 [facility] Comment on above: Order Comment: Speci men Type: BLOOD SPECIMENOrdering Facility: [facility] Address: [address] [place] [address] Performed By: #### 2 4321-2, 49282-6, 70586-3, 2777-1 ####[facility] LABORATORYCLIA [id number] [place] [address] [place] Calcium [Mass/Vol] 9.1 mg/dL Normal 8.5-10.2 [facility] Comment on above: Order Comment: Speci men Type: BLOOD SPECIMENOrdering Facility: [facility] Address: [address] [place] [address] Performed By: #### 2 4321-2, 69577-0, 31735-0, 2777-1 ####[facility] LABORATORYCLIA [id number] [place] [address] [place] Chloride [Moles/Vol] 96 mmol/L Low 97-105 [facility] Comment on above: Order Comment: Speci men Type: BLOOD SPECIMENOrdering Facility: [facility] Address: [address] [place], [place] [address] Performed By: #### 2 4321-2, 64588-7, 33114-4, 277- ####[facility] LABORATORYCLIA [id number] [place] [address] [place] CO2 [Moles/Vol] 27 mmol/L Normal 22-30 [facility] Comment on above: Order Comment: Speci men Type: BLOOD SPECIMENOrdering Facility: [facility] Address: [address] [place] [address] Performed By: #### 2 4321-2, 69287-9, 90429-1, 2776- ####[facility]ORATORYCLIA [id number] [address] STATES OF [facility] Creatinine [Mass/Vol] 0.64 mg/dL Low 0.73-1.22 [facility] Comment on above: Order Comment: Speci men Type: BLOOD SPECIMENOrdering Facility: [facility] Address: [address] [place] [address] Performed By: #### 2 4321-2, 78693-1, 50550-6, 2776-05 ####[facility] LABORATORYCLIA [id number] [address] [place] ESTIMATED GLOMERULAR FILTRATION RATE 102 mL/min/1.73m??? Normal >=60 [facility] Comment on above: Order Comment: Speci men Type: BLOOD SPECIMENOrdering Facility: [facility] Address: [address] [place] [address] Result Comment: Luzmaria mated Glomerular Filtration Rate [...] actual GFR. Performed By: #### 2 4321-2, 56288-2, 87431-9, 2777-1 ####[facility] LABORATORYCLIA [id number] [place] [address] [place] Glucose [Mass/Vol] 122 mg/dL High 74-99 [facility] Comment on above: Order Comment: Shira francia Type: BLOOD SPECIMENOrdering Facility: [facility] Address: [address] [place] [address] Result Comment: The [place] [employer] (ADA) provides guidance for cutoff [...] Standards of Medical Care in Diabetes 2016, [place] [employer]. Diabetes Care. 2016.39(Suppl 1). Performed By: #### 2 4321-2, 50052-6, 80339-5, 2777-1 ####[facility] LABORATORYCLIA [id number] [place] [address] [place] Potassium [Moles/Vol] 4.2 mmol/L Normal 3.7-5.1 [facility] Comment on above: Order Comment: Shira francia Type: BLOOD SPECIMENOrdering Facility: [facility] Address: [address] [address] Performed By: #### 2 4321-2, 40290-5, 54141-4, 2777-1 ####[facility] LABORATORYCLIA [id number] [place] [address] [place] Sodium [Moles/Vol] 135 mmol/L Low 136-144 [facility] Comment on above: Order Comment: Johni francia Type: BLOOD SPECIMENOrdering Facility: [facility] Address: [address] [address] Performed By: #### 2 4321-2, 34564-7, 86770-9, 2777-1 ####[facility] LABORATORYCLIA [id number] [place] [address] [place] Urea nitrogen [Mass/Vol] 36 mg/dL High 9-24 [facility] Comment on above: Order Comment: Speci men Type: BLOOD SPECIMENOrdering Facility: [facility] Address: [address] [place] [address] Performed By: #### 2 4321-2, 36902-2, 67950-9, 2777-1 ####[facility] LABORATORYCLIA [id number] [address] STATES OF [facility] CASE MANAGEMon 08-01-2021 CASE MANAGEM Normal [facility] CBC W Auto Differential pane l (Bld)on 08-01-2021 Basophils (Bld) [#/Vol] 0.04 10*3/uL Normal <0.11 [facility] Comment on above: Order Comment: Speci men Type: BLOOD SPECIMENOrdering Facility: [facility] Address: [address] [place] [address] Performed By: #### 5 7021-8 ####[facility] LABORATORYCLIA [id number] [address] [place] Basophils/100 WBC (Bld) 0.3 % Normal [facility] Comment on above: Order Comment: Speci men Type: BLOOD SPECIMENOrdering Facility: [facility] Address: [address] [place] [address] Performed By: #### 5 7021-8 ####[facility] LABORATORYCLIA [id number] [address] STATES OF [facility] Differential cell count method Nom (Bld) Auto Normal [facility] Comment on above: Order Comment: Speci men Type: BLOOD SPECIMENOrdering Facility: [facility] Address: [address] [place] [address] Performed By: #### 5 7021-8 ####[facility] LABORATORYCLIA [id number] [address] [place] Eosinophils (Bld) [#/Vol] 0.37 10*3/uL Normal <0.46 [facility] Comment on above: Order Comment: Speci men Type: BLOOD SPECIMENOrdering Facility: [facility] Address: [address] [place] [address] Performed By: #### 5 7021-8 ####[facility] LABORATORYCLIA [id number] [address] [place] Eosinophils/100 WBC (Bld) 3.1 % Normal [facility] Comment on above: Order Comment: Speci men Type: BLOOD SPECIMENOrdering Facility: [facility] Address: [address] [place] [address] Performed By: #### 5 7021-8 ####[facility] LABORATORYCLIA [id number] [address] Erythrocyte distribution width (RBC) [Ratio] 17.5 % High 11.5-15.0 [facility] Comment on above: Order Comment: Speci men Type: BLOOD SPECIMENOrdering Facility: [facility] Address: [address] [place] [address] Performed By: #### 5 7021-8 ####[facility] LABORATORYCLIA [id number] [address] [place] Hematocrit (Bld) [Volume fraction] 30.1 % Low 39.0-51.0 [facility] Comment on above: Order Comment: Speci men Type: BLOOD SPECIMENOrdering Facility: [facility] Address: [address] [place] [address] Performed By: #### 5 7021-8 ####[facility] LABORATORYCLIA [id number] [address] [place] Hemoglobin (Bld) [Mass/Vol] 9.1 g/dL Low 13.0-17.0 [facility] Comment on above: Order Comment: Speci men Type: BLOOD SPECIMENOrdering Facility: [facility] Address: [address] [address] Performed By: #### 5 7021-8 ####[facility] LABORATORYCLIA [id number] [address] IMMATURE GRAN % 0.6 % Normal [facility] Comment on above: Order Comment: Speci men Type: BLOOD SPECIMENOrdering Facility: [facility] Address: [address] [place] [address] Performed By: #### 5 7021-8 ####[facility] LABORATORYCLIA [id number] [address] IMMATURE GRAN ABS 0.07 k/uL Normal <0.10 [facility] Comment on above: Order Comment: Speci men Type: BLOOD SPECIMENOrdering Facility: [facility] Address: [address] [place] [address] Performed By: #### 5 7021-8 ####[facility] LABORATORYCLIA [id number] [address] Lymphocytes (Bld) [#/Vol] 2.05 10*3/uL Normal 1.00-4.00 [facility] Comment on above: Order Comment: Speci men Type: BLOOD SPECIMENOrdering Facility: [facility] Address: [address] [place] [address] Performed By: #### 5 7021-8 ####[facility]ORATORYCLIA [id number] [address] Lymphocytes/100 WBC (Bld) 17.1 % Normal [facility] Comment on above: Order Comment: Speci men Type: BLOOD SPECIMENOrdering Facility: [facility] Address: [address] [place] [address] Performed By: #### 5 7021-8 ####[facility] LABORATORYCLIA [id number] [address] MCH (RBC) [Entitic mass] 27.7 pg Normal 26.0-34.0 [facility] Comment on above: Order Comment: Speci men Type: BLOOD SPECIMENOrdering Facility: [facility] Address: [address] [place] [address] Performed By: #### 5 7021-8 ####[facility]ORATORYCLIA [id number] [address] MCHC (RBC) [Mass/Vol] 30.2 g/dL Low 30.5-36.0 [facility] Comment on above: Order Comment: Speci men Type: BLOOD SPECIMENOrdering Facility: [facility] Address: [address] [place] [address] Performed By: #### 5 7021-8 ####[facility]ORATORYCLIA [id number] [address] MCV (RBC) [Entitic vol] 91.5 fL Normal 80.0-100.0 [facility] Comment on above: Order Comment: Speci men Type: BLOOD SPECIMENOrdering Facility: [facility] Address: [address] [place] [address] Performed By: #### 5 7021-8 ####[facility] LABORATORYCLIA [id number] [address] Monocytes (Bld) [#/Vol] 0.53 10*3/uL Normal <0.87 [facility] Comment on above: Order Comment: Speci men Type: BLOOD SPECIMENOrdering Facility: [facility] Address: [address] [place] [address] Performed By: #### 5 7021-8 ####[facility] LABORATORYCLIA [id number] [address] Monocytes/100 WBC (Bld) 4.4 % Normal [facility] Comment on above: Order Comment: Speci men Type: BLOOD SPECIMENOrdering Facility: [facility] Address: [address] [place] [address] Performed By: #### 5 7021-8 ####[facility] LABORATORYCLIA [id number] [place] [address] [place] Neutrophils (Bld) [#/Vol] 8.91 10*3/uL High 1.45-7.50 [facility] Comment on above: Order Comment: Speci men Type: BLOOD SPECIMENOrdering Facility: [facility] Address: [address] [place] [address] Performed By: #### 5 7021-8 ####[facility] LABORATORYCLIA [id number] [address] [place] Neutrophils/100 WBC (Bld) 74.5 % Normal [facility] Comment on above: Order Comment: Speci men Type: BLOOD SPECIMENOrdering Facility: [facility] Address: [address] [place] [address] Performed By: #### 5 7021-8 ####[facility] LABORATORYCLIA [id number] [address] [place] Nucleated RBC (Bld) [#/Vol] 10*3/uL Normal <0.01 [facility] Comment on above: Order Comment: Speci men Type: BLOOD SPECIMENOrdering Facility: [facility] Address: [address] [place] [address] Performed By: #### 5 7021-8 ####[facility] LABORATORYCLIA [id number] [address] [place] Nucleated RBC/100 WBC (Bld) [Ratio] 0.0 /100 WBC Normal [facility] Comment on above: Order Comment: Speci men Type: BLOOD SPECIMENOrdering Facility: [facility] Address: [address] [place] [address] Performed By: #### 5 7021-8 ####[facility] LABORATORYCLIA [id number] [address] [place] Platelet mean volume (Bld) [Entitic vol] 10.4 fL Normal 9.0-12.7 [facility] Comment on above: Order Comment: Speci men Type: BLOOD SPECIMENOrdering Facility: [facility] Address: [address] [place] [address] Performed By: #### 5 7021-8 ####[facility] LABORATORYCLIA [id number] [address] STATES OF [facility] Platelets (Bld) [#/Vol] 319 10*3/uL Normal 150-400 [facility] Comment on above: Order Comment: Speci men Type: BLOOD SPECIMENOrdering Facility: [facility] Address: [address] [place] [address] Performed By: #### 5 7021-8 ####[facility] LABORATORYCLIA [id number] [place] [address] [place] RBC (Bld) [#/Vol] 3.29 10*6/uL Low 4.20-6.00 [facility] Comment on above: Order Comment: Speci men Type: BLOOD SPECIMENOrdering Facility: [facility] Address: [address] [place] [address] Performed By: #### 5 7021-8 ####[facility] LABORATORYCLIA [id number] [address] OF [facility] WBC (Bld) [#/Vol] 11.97 10*3/uL High 3.70-11.00 [facility] Comment on above: Order Comment: Speci men Type: BLOOD SPECIMENOrdering Facility: [facility] Address: [address] [place] [address] Performed By: #### 5 7021-8 ####[facility] LABORATORYCLIA [id number] [address] [place] CT BRAIN WO IVCONon 08-02-19 CT BRAIN WO IVCON Normal [facility] Magnesium SerPl-mCncon 08-01 Magnesium [Mass/Vol] 2.4 mg/dL High 1.7-2.3 [facility] Comment on above: Order Comment: Speci men Type: BLOOD SPECIMENOrdering Facility: [facility] Address: [address] [place] [address] Performed By: #### 2 4321-2, 61208-8, 38426-2, 2777-1 ####[facility] LABORATORYCLIA [id number] [address] [place] NURSING PROGon 08-01-2021 NURSING PROG Normal [facility] NUTRITIONon 08-01-2021 NUTRITION Normal [facility] Phosphate SerPl-mCncon 08-01 Phosphate [Mass/Vol] 3.3 mg/dL Normal 2.7-4.8 [facility] Comment on above: Order Comment: Speci men Type: BLOOD SPECIMENOrdering Facility: [facility] Address: [address] [place] [address] Performed By: #### 2 4321-2, 82201-9, 65929-3, 2777-1 ####[facility] LABORATORYCLIA [id number] [address] [place] Prealbumin [Mass/Vol]on 07-06 Prealbumin Nephelometry [Mass/Vol] 30 mg/dL Normal 17-36 [facility] Comment on above: Order Comment: Speci men Type: BLOOD SPECIMENOrdering Facility: [facility] Address: [address] [place] [address] Performed By: #### 2 4321-2, 43857-7, 02300-4, 2777-1 ####[facility] LABORATORYCLIA [id number] [address] [place] THERAPY NTon 08-01-2021 THERAPY NT Normal [facility] THERAPY NT Normal [facility] TYPE AND SCREENon 08-01-2021 ABO O Normal [facility] Comment on above: Order Comment: Speci men Type: BLOOD SPECIMENOrdering Facility: [facility] Address: [address] [place] [address] Performed By: #### T SCR ####[facility] BLOOD BANKCLIA [id number] [address] [place] HISTORICAL AB SCR STATUS Negative Normal [facility] Comment on above: Order Comment: Speci men Type: BLOOD SPECIMENOrdering Facility: [facility] Address: [address] [address] Performed By: #### T SCR ####[facility] BLOOD BANKCLIA [id number] [address] Rh Nom (Bld) Positive Normal [facility] Comment on above: Order Comment: Speci men Type: BLOOD SPECIMENOrdering Facility: [facility] Address: [address] [place] [address] Performed By: #### T SCR ####[facility] BLOOD BANKCLIA [id number] [address] TYPE AND SCREEN EXPIRATION 08/04/2021 23:59 Normal [facility] Comment on above: Order Comment: Speci men Type: BLOOD SPECIMENOrdering Facility: [facility] Address: [address] [place] [address] Performed By: #### T SCR ####[facility] BLOOD BANKCLIA [id number] [address] OF [facility] XR CHEST 1V FRONTALon 2021 XR CHEST 1V FRONTAL Normal [facility] aPTT PPPon 08-01-2021 aPTT Coag (PPP) [Time] 50.9 s High 23.0-32.4 [facility] Comment on above: Order Comment: Speci men Type: BLOOD SPECIMENOrdering Facility: [facility] Address: [address] [place] [address] Performed By: #### 1 4979-9 ####[facility] LABORATORYCLIA [id number] [address] CBC W Auto Differential pane l (Bld)on 07-31-2021 Basophils (Bld) [#/Vol] 0.05 10*3/uL Normal <0.11 [facility] Comment on above: Order Comment: Speci men Type: BLOOD SPECIMENOrdering Facility: [facility] Address: [address] [place] [address] Performed By: #### 5 7021-8 ####[facility] LABORATORYCLIA [id number] [address] [place] Basophils/100 WBC (Bld) 0.4 % Normal [facility] Comment on above: Order Comment: Speci men Type: BLOOD SPECIMENOrdering Facility: [facility] Address: [address] [place] [address] Performed By: #### 5 7021-8 ####[facility] LABORATORYCLIA [id number] [address] [place] Differential cell count method Nom (Bld) Auto Normal [facility] Comment on above: Order Comment: Speci men Type: BLOOD SPECIMENOrdering Facility: [facility] Address: [address] [place] [address] Performed By: #### 5 7021-8 ####[facility] LABORATORYCLIA [id number] [place] [address] [place] Eosinophils (Bld) [#/Vol] 0.51 10*3/uL High <0.46 [facility] Comment on above: Order Comment: Speci men Type: BLOOD SPECIMENOrdering Facility: [facility] Address: [address] [place] [address] Performed By: #### 5 7021-8 ####[facility] LABORATORYCLIA [id number] [address] [place] Eosinophils/100 WBC (Bld) 4.5 % Normal [facility] Comment on above: Order Comment: Speci men Type: BLOOD SPECIMENOrdering Facility: [facility] Address: [address] [place] [address] Performed By: #### 5 7021-8 ####[facility] LABORATORYCLIA [id number] [address] [place] Erythrocyte distribution width (RBC) [Ratio] 17.5 % High 11.5-15.0 [facility] Comment on above: Order Comment: Speci men Type: BLOOD SPECIMENOrdering Facility: [facility] Address: [address] [place] [address] Performed By: #### 5 7021-8 ####[facility] LABORATORYCLIA [id number] [address] Hematocrit (Bld) [Volume fraction] 30.4 % Low 39.0-51.0 [facility] Comment on above: Order Comment: Speci men Type: BLOOD SPECIMENOrdering Facility: [facility] Address: [address] [place] [address] Performed By: #### 5 7021-8 ####[facility]ORATORYCLIA [id number] [address] Hemoglobin (Bld) [Mass/Vol] 9.2 g/dL Low 13.0-17.0 [facility] Comment on above: Order Comment: Speci men Type: BLOOD SPECIMENOrdering Facility: [facility] Address: [address] [place] [address] Performed By: #### 5 7021-8 ####[facility]ORATORYCLIA [id number] [address] IMMATURE GRAN % 0.5 % Normal [facility] Comment on above: Order Comment: Speci men Type: BLOOD SPECIMENOrdering Facility: [facility] Address: [address] [place] [address] Performed By: #### 5 7021-8 ####[facility]ORATORYCLIA [id number] [address] IMMATURE GRAN ABS 0.06 k/uL Normal <0.10 [facility] Comment on above: Order Comment: Speci men Type: BLOOD SPECIMENOrdering Facility: [facility] Address: [address] [place] [address] Performed By: #### 5 7021-8 ####[facility]ATORYCLIA [id number] [address] Lymphocytes (Bld) [#/Vol] 1.99 10*3/uL Normal 1.00-4.00 [facility] Comment on above: Order Comment: Speci men Type: BLOOD SPECIMENOrdering Facility: [facility] Address: [address] [place] [address] Performed By: #### 5 7021-8 ####[facility]ATORYCLIA [id number] [address] Lymphocytes/100 WBC (Bld) 17.6 % Normal [facility] Comment on above: Order Comment: Speci men Type: BLOOD SPECIMENOrdering Facility: [facility] Address: [address] [place] [address] Performed By: #### 5 7021-8 ####[facility]ORATORYCLIA [id number] [address] MCH (RBC) [Entitic mass] 28.4 pg Normal 26.0-34.0 [facility] Comment on above: Order Comment: Speci men Type: BLOOD SPECIMENOrdering Facility: [facility] Address: [address] [place] [address] Performed By: #### 5 7021-8 ####[facility]ORATORYCLIA [id number] [address] MCHC (RBC) [Mass/Vol] 30.3 g/dL Low 30.5-36.0 [facility] Comment on above: Order Comment: Speci men Type: BLOOD SPECIMENOrdering Facility: [facility] Address: [address] [place] [address] Performed By: #### 5 7021-8 ####[facility]ATORYCLIA [id number] [address] MCV (RBC) [Entitic vol] 93.8 fL Normal 80.0-100.0 [facility] Comment on above: Order Comment: Speci men Type: BLOOD SPECIMENOrdering Facility: [facility] Address: [address] [place] [address] Performed By: #### 5 7021-8 ####[facility]ATORYCLIA [id number] [address] Monocytes (Bld) [#/Vol] 0.57 10*3/uL Normal <0.87 [facility] Comment on above: Order Comment: Speci men Type: BLOOD SPECIMENOrdering Facility: [facility] Address: [address] [place] [address] Performed By: #### 5 7021-8 ####[facility]ATORYCLIA [id number] [address] [place] Monocytes/100 WBC (Bld) 5.0 % Normal [facility] Comment on above: Order Comment: Speci men Type: BLOOD SPECIMENOrdering Facility: [facility] Address: [address] [place] [address] Performed By: #### 5 7021-8 ####[facility]ATORYCLIA [id number] [address] [place] Neutrophils (Bld) [#/Vol] 8.12 10*3/uL High 1.45-7.50 [facility] Comment on above: Order Comment: Speci men Type: BLOOD SPECIMENOrdering Facility: [facility] Address: [address] [place] [address] Performed By: #### 5 7021-8 ####[facility]ATORYCLIA [id number] [address] Neutrophils/100 WBC (Bld) 72.0 % Normal [facility] Comment on above: Order Comment: Speci men Type: BLOOD SPECIMENOrdering Facility: [facility] Address: [address] [place] [address] Performed By: #### 5 7021-8 ####[facility]ORATORYCLIA [id number] [address] [place] Nucleated RBC (Bld) [#/Vol] 10*3/uL Normal <0.01 [facility] Comment on above: Order Comment: Speci men Type: BLOOD SPECIMENOrdering Facility: [facility] Address: [address] [place] [address] Performed By: #### 5 7021-8 ####[facility]ORATORYCLIA [id number] [place] [address] [place] Nucleated RBC/100 WBC (Bld) [Ratio] 0.0 /100 WBC Normal [facility] Comment on above: Order Comment: Speci men Type: BLOOD SPECIMENOrdering Facility: [facility] Address: [address] [place] [address] Performed By: #### 5 7021-8 ####[facility]ORATORYCLIA [id number] [place] [address] [place] Platelet mean volume (Bld) [Entitic vol] 10.9 fL Normal 9.0-12.7 [facility] Comment on above: Order Comment: Speci men Type: BLOOD SPECIMENOrdering Facility: [facility] Address: [address] [place] [address] Performed By: #### 5 7021-8 ####[facility]ORATORYCLIA [id number] [address] [place] Platelets (Bld) [#/Vol] 303 10*3/uL Normal 150-400 [facility] Comment on above: Order Comment: Speci men Type: BLOOD SPECIMENOrdering Facility: [facility] Address: [address] [place] [address] Performed By: #### 5 7021-8 ####[facility]ORATORYCLIA [id number] [place] [address] [place] RBC (Bld) [#/Vol] 3.24 10*6/uL Low 4.20-6.00 [facility] Comment on above: Order Comment: Speci men Type: BLOOD SPECIMENOrdering Facility: [facility] Address: [address] [place] [address] Performed By: #### 5 7021-8 ####[facility]ORATORYCLIA [id number] [place] [address] [place] WBC (Bld) [#/Vol] 11.30 10*3/uL High 3.70-11.00 [facility] Comment on above: Order Comment: Speci men Type: BLOOD SPECIMENOrdering Facility: [facility] Address: [address] [place] [address] Performed By: #### 5 7021-8 ####[facility]ORATORYCLIA [id number] [address] [place] NURSING PROGon 07-31-2021 NURSING PROG Normal [facility] aPTT PPPon 07-31-2021 aPTT Coag (PPP) [Time] 64.9 s High 23.0-32.4 [facility] Comment on above: Order Comment: Speci men Type: BLOOD SPECIMENOrdering Facility: [facility] Address: [address] [place] [address] Performed By: #### 1 4979-9 ####[facility]ORATORYCLIA [id number] [address] [place] ALLIED HEALTHon 07-30-2021 ALLIED HEALTH Normal [facility] Bacteria CSF Culton 07-31-19 22 Bacteria identified Cx Nom (CSF) CULTURE, CSF: No growth 14 days GRAM STAIN: No organisms seen Few Mononuclear cells Rare Polymorphonuclear leukocytes Gram stain performed on cytospun specimen. Normal [facility] Comment on above: Performed By: #### 6 06-4 ####[facility]ORATORYCLIA [id number] [place] [address] [place] Basic metabolic 2000 panelon 07-30-2021 Anion gap [Moles/Vol] 9 mmol/L Normal 9-18 [facility] Comment on above: Order Comment: Speci men Type: BLOOD SPECIMENOrdering Facility: [facility] Address: [address] [place] [address] Performed By: #### 2 777-1, 66871-6, 03763-5 ####[facility]ATORYCLIA [id number] [place] [address] [place] Calcium [Mass/Vol] 8.9 mg/dL Normal 8.5-10.2 [facility] Comment on above: Order Comment: Speci men Type: BLOOD SPECIMENOrdering Facility: [facility] Address: [address] [place] [address] Performed By: #### 2 777-1, 45284-0, ####[facility]ATORYCLIA [id number] [place] [address] [place] Chloride [Moles/Vol] 95 mmol/L Low 97-105 [facility] Comment on above: Order Comment: Speci men Type: BLOOD SPECIMENOrdering Facility: [facility] Address: [address] [place] [address] Performed By: #### 2 777-1, 06121-1, ####[facility]ORATORYCLIA [id number] [address] [place] CO2 [Moles/Vol] 28 mmol/L Normal 22-30 [facility] Comment on above: Order Comment: Speci men Type: BLOOD SPECIMENOrdering Facility: [facility] Address: [address] [place] [address] Performed By: #### 2 777-1, , ####[facility]ORATORYCLIA [id number] [address] [place] Creatinine [Mass/Vol] 0.67 mg/dL Low 0.73-1.22 [facility] Comment on above: Order Comment: Speci men Type: BLOOD SPECIMENOrdering Facility: [facility] Address: [address] [place] [address] Performed By: #### 2 777-1, , ####[facility]ORATORYCLIA [id number] [address] OF [facility] ESTIMATED GLOMERULAR FILTRATION RATE 101 mL/min/1.73m??? Normal >=60 [facility] Comment on above: Order Comment: Speci men Type: BLOOD SPECIMENOrdering Facility: [facility] Address: [address] [place] [address] Result Comment: Luzmaria mated Glomerular Filtration Rate [...] actual GFR. Performed By: #### 2 777-1, 73695-7, ####[facility]ORATORYCLIA [id number] [place] [address] [place] Glucose [Mass/Vol] 125 mg/dL High 74-99 [facility] Comment on above: Order Comment: Shira feldman Type: BLOOD SPECIMENOrdering Facility: [facility] Address: [address] [place] [id number] Result Comment: The [place] [employer] (ADA) provides guidance for cutoff [...] Standards of Medical Care in Diabetes 2016, [place] [employer]. Diabetes Care. 2016.39(Suppl 1). Performed By: #### 2 777-1, , ####[facility]ORATORYCLIA [id number] [place] [address] [place] Potassium [Moles/Vol] 3.9 mmol/L Normal 3.7-5.1 [facility] Comment on above: Order Comment: Shira feldman Type: BLOOD SPECIMENOrdering Facility: [facility] Address: [address] [address] Performed By: #### 2 777-1, 79806-5, ####[facility]ORATORYCLIA [id number] [place] [address] [place] Sodium [Moles/Vol] 132 mmol/L Low 136-144 [facility] Comment on above: Order Comment: Speci men Type: BLOOD SPECIMENOrdering Facility: [facility] Address: [address] [place] [address] Performed By: #### 2 777-1, 13160-1, ####[facility]ORATORYCLIA [id number] [address] STATES [facility] Urea nitrogen [Mass/Vol] 38 mg/dL High 9-24 [facility] Comment on above: Order Comment: Speci men Type: BLOOD SPECIMENOrdering Facility: [facility] Address: [address] [place] [address] Performed By: #### 2 777-1, 22850-8, ####[facility]ORATORYCLIA [id number] [address] STATES OF [facility] CBC W Auto Differential pane l (Bld)on 07-30-2021 Basophils (Bld) [#/Vol] 0.04 10*3/uL Normal <0.11 [facility] Comment on above: Order Comment: Speci men Type: BLOOD SPECIMENOrdering Facility: [facility] Address: [address] [place] [address] Performed By: #### 5 7021-8 ####[facility]ATORYCLIA [id number] [address] [place] Basophils/100 WBC (Bld) 0.4 % Normal [facility] Comment on above: Order Comment: Speci men Type: BLOOD SPECIMENOrdering Facility: [facility] Address: [address] [place] [address] Performed By: #### 5 7021-8 ####[facility]ATORYCLIA [id number] [address] Differential cell count method Nom (Bld) Auto Normal [facility] Comment on above: Order Comment: Speci men Type: BLOOD SPECIMENOrdering Facility: [facility] Address: [address] [place] [address] Performed By: #### 5 7021-8 ####[facility]ATORYCLIA [id number] [address] [place] Eosinophils (Bld) [#/Vol] 0.30 10*3/uL Normal <0.46 [facility] Comment on above: Order Comment: Speci men Type: BLOOD SPECIMENOrdering Facility: [facility] Address: [address] [place] [address] Performed By: #### 5 7021-8 ####[facility]ATORYCLIA [id number] [address] Eosinophils/100 WBC (Bld) 2.7 % Normal [facility] Comment on above: Order Comment: Speci men Type: BLOOD SPECIMENOrdering Facility: [facility] Address: [address] [place] [address] Performed By: #### 5 7021-8 ####[facility]ORATORYCLIA [id number] [address] Erythrocyte distribution width (RBC) [Ratio] 17.2 % High 11.5-15.0 [facility] Comment on above: Order Comment: Speci men Type: BLOOD SPECIMENOrdering Facility: [facility] Address: [address] [place] [address] Performed By: #### 5 7021-8 ####[facility]ORATORYCLIA [id number] [address] [place] Hematocrit (Bld) [Volume fraction] 30.8 % Low 39.0-51.0 [facility] Comment on above: Order Comment: Speci men Type: BLOOD SPECIMENOrdering Facility: [facility] Address: [address] [place] [address] Performed By: #### 5 7021-8 ####[facility]ATORYCLIA [id number] [address] [place] Hemoglobin (Bld) [Mass/Vol] 9.4 g/dL Low 13.0-17.0 [facility] Comment on above: Order Comment: Speci men Type: BLOOD SPECIMENOrdering Facility: [facility] Address: [address] [place] [address] Performed By: #### 5 7021-8 ####[facility]ATORYCLIA [id number] [address] IMMATURE GRAN % 0.5 % Normal [facility] Comment on above: Order Comment: Speci men Type: BLOOD SPECIMENOrdering Facility: [facility] Address: [address] [place] [address] Performed By: #### 5 7021-8 ####[facility]ATORYCLIA [id number] [address] IMMATURE GRAN ABS 0.06 k/uL Normal <0.10 [facility] Comment on above: Order Comment: Speci men Type: BLOOD SPECIMENOrdering Facility: [facility] Address: [address] [place] [address] Performed By: #### 5 7021-8 ####[facility]ATORYCLIA [id number] [address] Lymphocytes (Bld) [#/Vol] 1.68 10*3/uL Normal 1.00-4.00 [facility] Comment on above: Order Comment: Speci men Type: BLOOD SPECIMENOrdering Facility: [facility] Address: [address] [place] [address] Performed By: #### 5 7021-8 ####[facility]ATORYCLIA [id number] [address] Lymphocytes/100 WBC (Bld) 15.3 % Normal [facility] Comment on above: Order Comment: Speci men Type: BLOOD SPECIMENOrdering Facility: [facility] Address: [address] [place] [address] Performed By: #### 5 7021-8 ####[facility]ATORYCLIA [id number] [address] MCH (RBC) [Entitic mass] 28.0 pg Normal 26.0-34.0 [facility] Comment on above: Order Comment: Speci men Type: BLOOD SPECIMENOrdering Facility: [facility] Address: [address] [place] [address] Performed By: #### 5 7021-8 ####[facility]ATORYCLIA [id number] [address] STATES OF [facility] MCHC (RBC) [Mass/Vol] 30.5 g/dL Normal 30.5-36.0 [facility] Comment on above: Order Comment: Speci men Type: BLOOD SPECIMENOrdering Facility: [facility] Address: [address] [place] [address] Performed By: #### 5 7021-8 ####[facility]ATORYCLIA [id number] [address] STATES OF [facility] MCV (RBC) [Entitic vol] 91.7 fL Normal 80.0-100.0 [facility] Comment on above: Order Comment: Speci men Type: BLOOD SPECIMENOrdering Facility: [facility] Address: [address] [place] [address] Performed By: #### 5 7021-8 ####[facility]ATORYCLIA [id number] [address] Monocytes (Bld) [#/Vol] 0.53 10*3/uL Normal <0.87 [facility] Comment on above: Order Comment: Speci men Type: BLOOD SPECIMENOrdering Facility: [facility] Address: [address] [place] [address] Performed By: #### 5 7021-8 ####[facility]ATORYCLIA [id number] [address] Monocytes/100 WBC (Bld) 4.8 % Normal [facility] Comment on above: Order Comment: Speci men Type: BLOOD SPECIMENOrdering Facility: [facility] Address: [address] [place] [address] Performed By: #### 5 7021-8 ####[facility]ATORYCLIA [id number] [place] [address] [place] Neutrophils (Bld) [#/Vol] 8.39 10*3/uL High 1.45-7.50 [facility] Comment on above: Order Comment: Speci men Type: BLOOD SPECIMENOrdering Facility: [facility] Address: [address] [place] [address] Performed By: #### 5 7021-8 ####[facility]ATORYCLIA [id number] [address] [place] Neutrophils/100 WBC (Bld) 76.3 % Normal [facility] Comment on above: Order Comment: Speci men Type: BLOOD SPECIMENOrdering Facility: [facility] Address: [address] [place] [address] Performed By: #### 5 7021-8 ####[facility]ATORYCLIA [id number] [address] STATES [facility] Nucleated RBC (Bld) [#/Vol] 10*3/uL Normal <0.01 [facility] Comment on above: Order Comment: Speci men Type: BLOOD SPECIMENOrdering Facility: [facility] Address: [address] [place] [address] Performed By: #### 5 7021-8 ####[facility]ATORYCLIA [id number] [address] [place] Nucleated RBC/100 WBC (Bld) [Ratio] 0.0 /100 WBC Normal [facility] Comment on above: Order Comment: Speci men Type: BLOOD SPECIMENOrdering Facility: [facility] Address: [address] [place] [address] Performed By: #### 5 7021-8 ####[facility]ATORYCLIA [id number] [address] [place] Platelet mean volume (Bld) [Entitic vol] 10.9 fL Normal 9.0-12.7 [facility] Comment on above: Order Comment: Speci men Type: BLOOD SPECIMENOrdering Facility: [facility] Address: [address] [place] [address] Performed By: #### 5 7021-8 ####[facility]ATORYCLIA [id number] [address] Platelets (Bld) [#/Vol] 287 10*3/uL Normal 150-400 [facility] Comment on above: Order Comment: Speci men Type: BLOOD SPECIMENOrdering Facility: [facility] Address: [address] [place] [address] Performed By: #### 5 7021-8 ####[facility]ATORYCLIA [id number] [address] RBC (Bld) [#/Vol] 3.36 10*6/uL Low 4.20-6.00 [facility] Comment on above: Order Comment: Speci men Type: BLOOD SPECIMENOrdering Facility: [facility] Address: [address] [place] [address] Performed By: #### 5 7021-8 ####[facility]ATORYCLIA [id number] [address] WBC (Bld) [#/Vol] 11.00 10*3/uL Normal 3.70-11.00 [facility] Comment on above: Order Comment: Speci men Type: BLOOD SPECIMENOrdering Facility: [facility] Address: [address] [place] [address] Performed By: #### 5 7021-8 ####[facility]ATORYCLIA [id number] [address] CSF MANUAL DIFFon 07-30-2021 DIF TTL, CSF 100 cells counted Normal [facility] Comment on above: Order Comment: Speci men Type: CEREBROSPINAL FLUIDOrdering Facility: [facility] Address: [address] [place] [address] Performed By: #### L [id number], [id number], 12511-3 ####[facility]ATORYCLIA [id number] [place] [address] [place] EOSIN%, CSF 0 % Normal [facility] Comment on above: Order Comment: Speci men Type: CEREBROSPINAL FLUIDOrdering Facility: [facility] Address: [address] [place] [address] Performed By: #### L [id number], CPF7548, 52844-7 ####[facility]ORYCLIA [id number] [place] [address] [place] LYMPH%, CSF 75 % Normal 50-90 [facility] Comment on above: Order Comment: Speci men Type: CEREBROSPINAL FLUIDOrdering Facility: [facility] Address: [address] [place] [address] Performed By: #### L [id number], [id number], 63656-1 ####[facility]ORYCLIA [id number] [place] [address] [place] MACRO%, CSF 9 % High <1 [facility] Comment on above: Order Comment: Speci men Type: CEREBROSPINAL FLUIDOrdering Facility: [facility] Address: [address] [place] [address] Performed By: #### L [id number], FNJ1827, 15930-9 ####[facility]ATORYCLIA [id number] [place] [address] [place] MONO%, CSF 10 % Normal 10-50 [facility] Comment on above: Order Comment: Speci men Type: CEREBROSPINAL FLUIDOrdering Facility: [facility] Address: [address] [place] [address] Performed By: #### L [id number], [id number], [id number] ####[facility] LABORATORYCLIA [id number] [address] [place] OTHER CL%, CSF 4 % Normal [facility] Comment on above: Order Comment: Speci men Type: CEREBROSPINAL FLUIDOrdering Facility: [facility] Address: [address] [place] [address] Result Comment: Path review to follow. Performed By: #### L [id number], [id number], [id number] ####[facility] LABORATORYCLIA [id number] [address] [place] REAC LYMPH %, CSF 2 % Normal [facility] Comment on above: Order Comment: Speci men Type: CEREBROSPINAL FLUIDOrdering Facility: [facility] Address: [address] [place] [address] Performed By: #### L [id number], [id number], 08709-3 ####[facility]ATORYCLIA [id number] [address] [place] CSF PATHOLOGIST INTERP (LAB REFLEX ORDER-NO BILL)on 07-30-2021 CSF STAFF REVIEW Negative Normal [facility] Comment on above: Order Comment: Speci men Type: CEREBROSPINAL FLUIDOrdering Facility: [facility] Address: [address] [place] [address] Performed By: #### L [id number], [id number], 21911-6 ####[facility]ATORYCLIA [id number] [address] Pathologist name Reviewed by Eloise rebolledo MD Normal [facility] Comment on above: Order Comment: Speci men Type: CEREBROSPINAL FLUIDOrdering Facility: [facility] Address: [address] [place] [address] Performed By: #### L [id number], [id number], 01607-2 ####[facility]ORYCLIA [id number] [address] [place] CT BRAIN WO IVCONon 07-31-[address] BRAIN WO IVCON Normal [facility] Cell count panel (CSF)on Clarity (CSF) Clear Normal Clear [facility] Comment on above: Order Comment: Speci men Type: CEREBROSPINAL FLUIDOrdering Facility: [facility] Address: [address] [place] [address] Performed By: #### L [id number], [id number], 28107-7 ####[facility]ORYCLIA [id number] [address] Clarity (Unsp spec) Clear Normal Clear [facility] Comment on above: Order Comment: Speci men Type: CEREBROSPINAL FLUIDOrdering Facility: [facility] Address: [address] [place] [address] Performed By: #### L [id number], [id number], 77370-0 ####[facility]ATORYCLIA [id number] [address] Color (CSF) Colorless Normal Colorless [facility] Comment on above: Order Comment: Speci men Type: CEREBROSPINAL FLUIDOrdering Facility: [facility] Address: [address] [place] [address] Performed By: #### L [id number], [id number], 88190-6 ####[facility]ORATORYCLIA [id number] [address] Color (Spun CSF) Colorless Normal Colorless [facility] Comment on above: Order Comment: Speci men Type: CEREBROSPINAL FLUIDOrdering Facility: [facility] Address: [address] [place], [place] [address] Performed By: #### L [id number], [id number], 04927-9 ####[facility]ORATORYCLIA [id number] [address] CSF [employer] Normal [facility] Comment on above: Order Comment: Speci men Type: CEREBROSPINAL FLUIDOrdering Facility: [facility] Address: [address] [place], [place] [address] Performed By: #### L [id number], [id number], 79496-7 ####[facility]ORATORYCLIA [id number] [address] RBC Manual cnt (CSF) [#/Vol] 9 cells/uL High 0-5 [facility] Comment on above: Order Comment: Speci men Type: CEREBROSPINAL FLUIDOrdering Facility: [facility] Address: [address] [place], [place] [address] Performed By: #### L [id number], [id number], 45323-8 ####[facility]ORATORYCLIA [id number] [place] [address] [place] WBC Manual cnt (CSF) [#/Vol] 8 cells/uL High 0-5 [facility] Comment on above: Order Comment: Speci men Type: CEREBROSPINAL FLUIDOrdering Facility: [facility] Address: [address] [place] [address] Performed By: #### L [id number], [id number], 67024-8 ####[facility]ORATORYCLIA [id number] [address] STATES OF [facility] Glucose CSF-mCncon Glucose (CSF) [Mass/Vol] 65 mg/dL Normal 40-70 [facility] Comment on above: Order Comment: Speci men Type: CEREBROSPINAL FLUIDOrdering Facility: [facility] Address: [address] [place] [address] Result Comment: Lumb ar CSF glucose values of healthy patients are approximately 60% of the plasma values and must always be compared with a concurrently measured plasma value for adequate clinical interpretation.References: 1. Glucose HK (GLUC3) [package insert V 12.0 Israeli]. [employer], [place], [place]. September 2015. 2. Michelle Moore, Loki, H. (2015). Chapter 7: Glucose and Lactate. Marianela Alcocer al.(eds.), Cerebrospinal Fluid in Clinical Neurology. Story: [employer]. Performed By: #### 2 342-4, 2880-3 ####[facility]ORATORYCLIA [id number] [address] [place] Magnesium SerPl-ncon 07-30 Magnesium [Mass/Vol] 2.5 mg/dL High 1.7-2.3 [facility] Comment on above: Order Comment: Speci men Type: BLOOD SPECIMENOrdering Facility: [facility] Address: [address] [place] [address] Performed By: #### 2 777-1, 17285-4, 00973-4 ####[facility]ORATORYCLIA [id number] [address] NURSING PROGon 07-30-2021 NURSING PROG Normal [facility] Phosphate SerPl-mCncon 07-30 Phosphate [Mass/Vol] 2.4 mg/dL Low 2.7-4.8 [facility] Comment on above: Order Comment: Speci men Type: BLOOD SPECIMENOrdering Facility: [facility] Address: [address] [place] [address] Performed By: #### 2 777-1, 57633-0, 50345-1 ####[facility]ORATORYCLIA [id number] [address] Prot CSF-mCncon 07-30-2021 Protein (CSF) [Mass/Vol] 50 mg/dL High 15-45 [facility] Comment on above: Order Comment: Speci men Type: CEREBROSPINAL FLUIDOrdering Facility: [facility] Address: [address] [place] [address] Performed By: #### 2 342-4, 2880-3 ####[facility]ORATORYCLIA [id number] [address] aPTT PPPon 07-30-2021 aPTT Coag (PPP) [Time] 64.1 s High 23.0-32.4 [facility] Comment on above: Order Comment: Speci men Type: BLOOD SPECIMENOrdering Facility: [facility] Address: [address] [place] [address] Performed By: #### 1 4979-9 ####[facility]ORATORYCLIA [id number] [address] [place] Bacteria CSF Culton 07-30-19 22 Bacteria identified Cx Nom (CSF) CULTURE, CSF: No growth 14 days GRAM STAIN: No cells or organisms seen Gram stain performed on cytospun specimen. Gram stain confirmed by microbiology Normal [facility] Comment on above: Performed By: #### 6 06-4 ####[facility]ORATORYCLIA [id number] [address] [place] CASE MANAGEMon 07-29-2021 CASE MANAGEM Normal [facility] CBC W Auto Differential pane l (Bld)on 07-29-2021 Basophils (Bld) [#/Vol] 0.03 10*3/uL Normal <0.11 [facility] Comment on above: Order Comment: Speci men Type: BLOOD SPECIMENOrdering Facility: [facility] Address: [address] [place] [address] Performed By: #### 5 7021-8 ####[facility]ORYCLIA [id number] [address] Basophils/100 WBC (Bld) 0.3 % Normal [facility] Comment on above: Order Comment: Speci men Type: BLOOD SPECIMENOrdering Facility: [facility] Address: [address] [place] [address] Performed By: #### 5 7021-8 ####[facility]ORATORYCLIA [id number] [address] Differential cell count method Nom (Bld) Auto Normal [facility] Comment on above: Order Comment: Speci men Type: BLOOD SPECIMENOrdering Facility: [facility] Address: [address] [place] [address] Performed By: #### 5 7021-8 ####[facility]ORATORYCLIA [id number] [address] [place] Eosinophils (Bld) [#/Vol] 0.40 10*3/uL Normal <0.46 [facility] Comment on above: Order Comment: Speci men Type: BLOOD SPECIMENOrdering Facility: [facility] Address: [address] [place] [address] Performed By: #### 5 7021-8 ####[facility]ORATORYCLIA [id number] [address] Eosinophils/100 WBC (Bld) 3.9 % Normal [facility] Comment on above: Order Comment: Speci men Type: BLOOD SPECIMENOrdering Facility: [facility] Address: [address] [place] [address] Performed By: #### 5 7021-8 ####[facility]ORATORYCLIA [id number] [address] Erythrocyte distribution width (RBC) [Ratio] 17.1 % High 11.5-15.0 [facility] Comment on above: Order Comment: Speci men Type: BLOOD SPECIMENOrdering Facility: [facility] Address: [address] [place] [address] Performed By: #### 5 7021-8 ####[facility]ORATORYCLIA [id number] [address] Hematocrit (Bld) [Volume fraction] 32.0 % Low 39.0-51.0 [facility] Comment on above: Order Comment: Speci men Type: BLOOD SPECIMENOrdering Facility: [facility] Address: [address] [place] [address] Performed By: #### 5 7021-8 ####[facility]ORATORYCLIA [id number] [address] Hemoglobin (Bld) [Mass/Vol] 9.7 g/dL Low 13.0-17.0 [facility] Comment on above: Order Comment: Speci men Type: BLOOD SPECIMENOrdering Facility: [facility] Address: [address] [place] [address] Performed By: #### 5 7021-8 ####[facility]ORATORYCLIA [id number] [address] IMMATURE GRAN % 0.6 % Normal [facility] Comment on above: Order Comment: Speci men Type: BLOOD SPECIMENOrdering Facility: [facility] Address: [address] [place] [address] Performed By: #### 5 7021-8 ####[facility]ORATORYCLIA [id number] [address] IMMATURE GRAN ABS 0.06 k/uL Normal <0.10 [facility] Comment on above: Order Comment: Speci men Type: BLOOD SPECIMENOrdering Facility: [facility] Address: [address] [place] [address] Performed By: #### 5 7021-8 ####[facility]ORATORYCLIA [id number] [address] Lymphocytes (Bld) [#/Vol] 1.96 10*3/uL Normal 1.00-4.00 [facility] Comment on above: Order Comment: Speci men Type: BLOOD SPECIMENOrdering Facility: [facility] Address: [address] [place] [address] Performed By: #### 5 7021-8 ####[facility]ATORYCLIA [id number] [address] Lymphocytes/100 WBC (Bld) 19.0 % Normal [facility] Comment on above: Order Comment: Speci men Type: BLOOD SPECIMENOrdering Facility: [facility] Address: [address] [place] [address] Performed By: #### 5 7021-8 ####[facility]ORATORYCLIA [id number] [address] [place] MCH (RBC) [Entitic mass] 28.0 pg Normal 26.0-34.0 [facility] Comment on above: Order Comment: Speci men Type: BLOOD SPECIMENOrdering Facility: [facility] Address: [address] [place] [address] Performed By: #### 5 7021-8 ####[facility]ORATORYCLIA [id number] [address] [place] MCHC (RBC) [Mass/Vol] 30.3 g/dL Low 30.5-36.0 [facility] Comment on above: Order Comment: Speci men Type: BLOOD SPECIMENOrdering Facility: [facility] Address: [address] [place] [address] Performed By: #### 5 7021-8 ####[facility]ORATORYCLIA [id number] [address] [place] MCV (RBC) [Entitic vol] 92.5 fL Normal 80.0-100.0 [facility] Comment on above: Order Comment: Speci men Type: BLOOD SPECIMENOrdering Facility: [facility] Address: [facility] [place] [address] Performed By: #### 5 7021-8 ####[facility]ORATORYCLIA [id number] [place] [address] [place] Monocytes (Bld) [#/Vol] 0.53 10*3/uL Normal <0.87 [facility] Comment on above: Order Comment: Speci men Type: BLOOD SPECIMENOrdering Facility: [facility] Address: [address] [place] [address] Performed By: #### 5 7021-8 ####[facility]ATORYCLIA [id number] [address] Monocytes/100 WBC (Bld) 5.2 % Normal [facility] Comment on above: Order Comment: Speci men Type: BLOOD SPECIMENOrdering Facility: [facility] Address: [address] [place] [address] Performed By: #### 5 7021-8 ####[facility]ORATORYCLIA [id number] [place] [address] [place] Neutrophils (Bld) [#/Vol] 7.31 10*3/uL Normal 1.45-7.50 [facility] Comment on above: Order Comment: Speci men Type: BLOOD SPECIMENOrdering Facility: [facility] Address: [address] [place] [address] Performed By: #### 5 7021-8 ####[facility]ORATORYCLIA [id number] [address] [place] Neutrophils/100 WBC (Bld) 71.0 % Normal [facility] Comment on above: Order Comment: Speci men Type: BLOOD SPECIMENOrdering Facility: [facility] Address: [address] [place] [address] Performed By: #### 5 7021-8 ####[facility]ATORYCLIA [id number] [address] [place] Nucleated RBC (Bld) [#/Vol] 10*3/uL Normal <0.01 [facility] Comment on above: Order Comment: Speci men Type: BLOOD SPECIMENOrdering Facility: [facility] Address: [address] [place] [address] Performed By: #### 5 7021-8 ####[facility]ATORYCLIA [id number] [address] [place] Nucleated RBC/100 WBC (Bld) [Ratio] 0.0 /100 WBC Normal [facility] Comment on above: Order Comment: Speci men Type: BLOOD SPECIMENOrdering Facility: [facility] Address: [address] [place] [address] Performed By: #### 5 7021-8 ####[facility]ORATORYCLIA [id number] [address] Platelet mean volume (Bld) [Entitic vol] 11.2 fL Normal 9.0-12.7 [facility] Comment on above: Order Comment: Speci men Type: BLOOD SPECIMENOrdering Facility: [facility] Address: [address] [place] [address] Performed By: #### 5 7021-8 ####[facility]ATORYCLIA [id number] [address] [place] Platelets (Bld) [#/Vol] 276 10*3/uL Normal 150-400 [facility] Comment on above: Order Comment: Speci men Type: BLOOD SPECIMENOrdering Facility: [facility] Address: [address] [place] [address] Performed By: #### 5 7021-8 ####[facility]ATORYCLIA [id number] [address] [place] RBC (Bld) [#/Vol] 3.46 10*6/uL Low 4.20-6.00 [facility] Comment on above: Order Comment: Speci men Type: BLOOD SPECIMENOrdering Facility: [facility] Address: [address] [place] [address] Performed By: #### 5 7021-8 ####[facility]ORATORYCLIA [id number] [address] STATES OF [facility] WBC (Bld) [#/Vol] 10.29 10*3/uL Normal 3.70-11.00 [facility] Comment on above: Order Comment: Speci men Type: BLOOD SPECIMENOrdering Facility: [facility] Address: [address] [place] [address] Performed By: #### 5 7021-8 ####[facility]ATORYCLIA [id number] [address] NURSING PROGon 07-29-2021 NURSING PROG Normal [facility] THERAPY NTon 07-29-2021 THERAPY NT Normal [facility] aPTT PPPon 07-29-2021 aPTT Coag (PPP) [Time] 59.2 s High 23.0-32.4 [facility] Comment on above: Order Comment: Speci men Type: BLOOD SPECIMENOrdering Facility: [facility] Address: [address] [place] [address] Performed By: #### 1 4979-9 ####[facility]ATORYCLIA [id number] [address] [place] ALLIED HEALTHon 07-28-2021 ALLIED HEALTH Normal [facility] Basic metabolic 2000 panelon 07-28-2021 Anion gap [Moles/Vol] 7 mmol/L Low 9-18 [facility] Comment on above: Order Comment: Speci men Type: BLOOD SPECIMENOrdering Facility: [facility] Address: [address] [place] [address] Performed By: #### 1 4338-8, 43931-0, 2777-1, 01650-9 ####[facility]ORATORYCLIA [id number] [address] STATES [facility] Calcium [Mass/Vol] 9.0 mg/dL Normal 8.5-10.2 [facility] Comment on above: Order Comment: Speci men Type: BLOOD SPECIMENOrdering Facility: [facility] Address: [address] [place] [address] Performed By: #### 1 4338-8, 12454-0, 2777-1, 51792-6 ####[facility]ATORYCLIA [id number] [place] [address] [place] Chloride [Moles/Vol] 94 mmol/L Low 97-105 [facility] Comment on above: Order Comment: Speci men Type: BLOOD SPECIMENOrdering Facility: [facility] Address: [address] [place] [address] Performed By: #### 1 4338-8, 66423-4, 2777-1, 89851-1 ####[facility]ATORYCLIA [id number] [address] STATES OF [facility] CO2 [Moles/Vol] 31 mmol/L High 22-30 [facility] Comment on above: Order Comment: Speci men Type: BLOOD SPECIMENOrdering Facility: [facility] Address: [address] [place] [address] Performed By: #### 1 4338-8, 64184-6, 2777-1, 05886-5 ####[facility]ATORYCLIA [id number] [place] [address] [place] Creatinine [Mass/Vol] 0.75 mg/dL Normal 0.73-1.22 [facility] Comment on above: Order Comment: Speci men Type: BLOOD SPECIMENOrdering Facility: [facility] Address: [address] [place] [address] Performed By: #### 1 4338-8, 92044-0, 2777-1, 38492-1 ####[facility]ORATORYCLIA [id number] [address] STATES OF [facility] ESTIMATED GLOMERULAR FILTRATION RATE 98 mL/min/1.73m??? Normal >=60 [facility] Comment on above: Order Comment: Shira feldman Type: BLOOD SPECIMENOrdering Facility: [facility] Address: [address] [place], [place] [address] Result Comment: Luzmaria mated Glomerular Filtration Rate [...] actual GFR. Performed By: #### 1 4338-8, 73537-8, 2777-1, 34492-1 ####[facility]ENTERCLIA [id number] [place] [address] [place] Glucose [Mass/Vol] 122 mg/dL High 74-99 [facility] Comment on above: Order Comment: Shira feldman Type: BLOOD SPECIMENOrdering Facility: [facility] Address: [address] [place] [address] Result Comment: The [place] Diabetes Association (ADA) provides guidance for cutoff [...] Standards of Medical Care in Diabetes 2016, [place] [employer]. Diabetes Care. 2016.39(Suppl 1). Performed By: #### 1 4338-8, 65117-5, 2777-1, 82616-8 ####[facility] CENTERCLIA [id number] [place] [id number] [place] Potassium [Moles/Vol] 4.0 mmol/L Normal 3.7-5.1 [facility] Comment on above: Order Comment: Shira men Type: BLOOD SPECIMENOrdering Facility: [facility] Address: [address] [place] [address] Performed By: #### 1 4338-8, 42519-8, 2777-, 07397-7 ####[facility]ORATORYCLIA [id number] [address] STATES OF [facility] Sodium [Moles/Vol] 132 mmol/L Low 136-144 [facility] Comment on above: Order Comment: Speci men Type: BLOOD SPECIMENOrdering Facility: [facility] Address: [address] [place] [address] Performed By: #### 1 4338-8, , 2777-, 70975-2 ####[facility]ORATORYCLIA [id number] [address] [place] Urea nitrogen [Mass/Vol] 34 mg/dL High 01-28 [facility] Comment on above: Order Comment: Speci men Type: BLOOD SPECIMENOrdering Facility: [facility] Address: [address] [place] [address] Performed By: #### 1 4338-8, 93520-4, 2777-, 53014-0 ####[facility]ATORYCLIA [id number] [address] [place] CBC W Auto Differential pane l (Bld)on 07-28-2021 Basophils (Bld) [#/Vol] 0.04 10*3/uL Normal <0.11 [facility] Comment on above: Order Comment: Speci men Type: BLOOD SPECIMENOrdering Facility: [facility] Address: [address] [place] [address] Performed By: #### 5 7021-8 ####[facility]ORATORYCLIA [id number] [address] STATES OF [facility] Basophils/100 WBC (Bld) 0.5 % Normal [facility] Comment on above: Order Comment: Speci men Type: BLOOD SPECIMENOrdering Facility: [facility] Address: [address] [place] [address] Performed By: #### 5 7021-8 ####[facility]ORATORYCLIA [id number] [address] Differential cell count method Nom (Bld) Auto Normal [facility] Comment on above: Order Comment: Speci men Type: BLOOD SPECIMENOrdering Facility: [facility] Address: [address] [place] [address] Performed By: #### 5 7021-8 ####[facility]ORATORYCLIA [id number] [address] Eosinophils (Bld) [#/Vol] 0.30 10*3/uL Normal <0.46 [facility] Comment on above: Order Comment: Speci men Type: BLOOD SPECIMENOrdering Facility: [facility] Address: [address] [place] [address] Performed By: #### 5 7021-8 ####[facility]ORATORYCLIA [id number] [address] Eosinophils/100 WBC (Bld) 3.4 % Normal [facility] Comment on above: Order Comment: Speci men Type: BLOOD SPECIMENOrdering Facility: [facility] Address: [address] [place] [address] Performed By: #### 5 7021-8 ####[facility]ORATORYCLIA [id number] [address] Erythrocyte distribution width (RBC) [Ratio] 16.9 % High 11.5-15.0 [facility] Comment on above: Order Comment: Speci men Type: BLOOD SPECIMENOrdering Facility: [facility] Address: [address] [place] [address] Performed By: #### 5 7021-8 ####[facility] LABORATORYCLIA [id number] [address] Hematocrit (Bld) [Volume fraction] 30.3 % Low 39.0-51.0 [facility] Comment on above: Order Comment: Speci men Type: BLOOD SPECIMENOrdering Facility: [facility] Address: [address] [place] [address] Performed By: #### 5 7021-8 ####[facility] LABORATORYCLIA [id number] [address] Hemoglobin (Bld) [Mass/Vol] 9.2 g/dL Low 13.0-17.0 [facility] Comment on above: Order Comment: Speci men Type: BLOOD SPECIMENOrdering Facility: [facility] Address: [address] [place] [address] Performed By: #### 5 7021-8 ####[facility] LABORATORYCLIA [id number] [address] IMMATURE GRAN % 0.6 % Normal [facility] Comment on above: Order Comment: Speci men Type: BLOOD SPECIMENOrdering Facility: [facility] Address: [address] [place] [address] Performed By: #### 5 7021-8 ####[facility] LABORATORYCLIA [id number] [address] IMMATURE GRAN ABS 0.05 k/uL Normal <0.10 [facility] Comment on above: Order Comment: Speci men Type: BLOOD SPECIMENOrdering Facility: [facility] Address: [address] [place] [address] Performed By: #### 5 7021-8 ####[facility]ORATORYCLIA [id number] [address] Lymphocytes (Bld) [#/Vol] 1.68 10*3/uL Normal 1.00-4.00 [facility] Comment on above: Order Comment: Speci men Type: BLOOD SPECIMENOrdering Facility: [facility] Address: [address] [place] [address] Performed By: #### 5 7021-8 ####[facility]ORATORYCLIA [id number] [address] Lymphocytes/100 WBC (Bld) 19.2 % Normal [facility] Comment on above: Order Comment: Speci men Type: BLOOD SPECIMENOrdering Facility: [facility] Address: [address] [place] [address] Performed By: #### 5 7021-8 ####[facility]ORATORYCLIA [id number] [address] MCH (RBC) [Entitic mass] 28.4 pg Normal 26.0-34.0 [facility] Comment on above: Order Comment: Speci men Type: BLOOD SPECIMENOrdering Facility: [facility] Address: [address] [place] [address] Performed By: #### 5 7021-8 ####[facility]ORATORYCLIA [id number] [address] MCHC (RBC) [Mass/Vol] 30.4 g/dL Low 30.5-36.0 [facility] Comment on above: Order Comment: Speci men Type: BLOOD SPECIMENOrdering Facility: [facility] Address: [address] [place] [address] Performed By: #### 5 7021-8 ####[facility]ATORYCLIA [id number] [address] MCV (RBC) [Entitic vol] 93.5 fL Normal 80.0-100.0 [facility] Comment on above: Order Comment: Speci men Type: BLOOD SPECIMENOrdering Facility: [facility] Address: [address] [place] [address] Performed By: #### 5 7021-8 ####[facility] LABORATORYCLIA [id number] [address] Monocytes (Bld) [#/Vol] 0.58 10*3/uL Normal <0.87 [facility] Comment on above: Order Comment: Speci men Type: BLOOD SPECIMENOrdering Facility: [facility] Address: [address] [place] [address] Performed By: #### 5 7021-8 ####[facility]ENTERCLIA [id number] [address] [place] Monocytes/100 WBC (Bld) 6.6 % Normal [facility] Comment on above: Order Comment: Speci men Type: BLOOD SPECIMENOrdering Facility: [facility] Address: [address] [place] [address] Performed By: #### 5 7021-8 ####[facility]ORATORYCLIA [id number] [place] [address] [place] Neutrophils (Bld) [#/Vol] 6.11 10*3/uL Normal 1.45-7.50 [facility] Comment on above: Order Comment: Speci men Type: BLOOD SPECIMENOrdering Facility: [facility] Address: [address] [place] [address] Performed By: #### 5 7021-8 ####[facility]ORATORYCLIA [id number] [address] Neutrophils/100 WBC (Bld) 69.7 % Normal [facility] Comment on above: Order Comment: Speci men Type: BLOOD SPECIMENOrdering Facility: [facility] Address: [address] [place] [address] Performed By: #### 5 7021-8 ####[facility] LABORATORYCLIA [id number] [address] [place] Nucleated RBC (Bld) [#/Vol] 10*3/uL Normal <0.01 [facility] Comment on above: Order Comment: Speci men Type: BLOOD SPECIMENOrdering Facility: [facility] Address: [address] [place] [address] Performed By: #### 5 7021-8 ####[facility]ORATORYCLIA [id number] [address] [place] Nucleated RBC/100 WBC (Bld) [Ratio] 0.0 /100 WBC Normal [facility] Comment on above: Order Comment: Speci men Type: BLOOD SPECIMENOrdering Facility: [facility] Address: [address] Performed By: #### 5 7021-8 ####[facility]ORATORYCLIA [id number] [address] STATES [facility] Platelet mean volume (Bld) [Entitic vol] 11.3 fL Normal 9.0-12.7 [facility] Comment on above: Order Comment: Speci men Type: BLOOD SPECIMENOrdering Facility: [facility] Address: [address] [place] [address] Performed By: #### 5 7021-8 ####[facility] LABORATORYCLIA [id number] [place] [address] [place] Platelets (Bld) [#/Vol] 238 10*3/uL Normal 150-400 [facility] Comment on above: Order Comment: Speci men Type: BLOOD SPECIMENOrdering Facility: [facility] Address: [address] [place] [address] Performed By: #### 5 7021-8 ####[facility]ORATORYCLIA [id number] [address] [place] RBC (Bld) [#/Vol] 3.24 10*6/uL Low 4.20-6.00 [facility] Comment on above: Order Comment: Speci men Type: BLOOD SPECIMENOrdering Facility: [facility] Address: [address] [place] [address] Performed By: #### 5 7021-8 ####[facility]ORATORYCLIA [id number] [address] [place] WBC (Bld) [#/Vol] 8.76 10*3/uL Normal 3.70-11.00 [facility] Comment on above: Order Comment: Speci men Type: BLOOD SPECIMENOrdering Facility: [facility] Address: [address] [place], [place] [address] Performed By: #### 5 7021-8 ####[facility] LABORATORYCLIA [id number] [address] [place] MRI BRAIN WO/W IVCONon 07-28 MRI BRAIN WO/W IVCON Normal [facility] Magnesium SerPl-mCncon 07-28 Magnesium [Mass/Vol] 2.5 mg/dL High 1.7-2.3 [facility] Comment on above: Order Comment: Speci men Type: BLOOD SPECIMENOrdering Facility: [facility] Address: [address] [place] [address] Performed By: #### 1 4338-8, 70781-9, 277-1, 21544-7 ####[facility]ORATORYCLIA [id number] [address] OF [facility] NURSING PROGon 07-28-2021 NURSING PROG Normal [facility] NURSING PROG Normal [facility] Phosphate SerPl-mCncon 07-28 Phosphate [Mass/Vol] 2.8 mg/dL Normal 2.7-4.8 [facility] Comment on above: Order Comment: Speci men Type: BLOOD SPECIMENOrdering Facility: [facility] Address: [address] [place] [address] Performed By: #### 1 4338-8, 18417-2, 2776-05, 91244-6 ####[facility]ORATORYCLIA [id number] [address] [place] Prealbumin [Mass/Vol]on 07-06 Prealbumin Nephelometry [Mass/Vol] 25 mg/dL Normal 17-36 [facility] Comment on above: Order Comment: Speci men Type: BLOOD SPECIMENOrdering Facility: [facility] Address: [facility] [place] [address] Performed By: #### 1 4338-8, 31261-4, 277-, 93694-8 ####[facility]ORATORYCLIA [id number] [address] [place] aPTT PPPon 07-28-2021 aPTT Coag (PPP) [Time] 53.0 s High 23.0-32.4 [facility] Comment on above: Order Comment: Speci men Type: BLOOD SPECIMENOrdering Facility: [facility] Address: [address] [place] [address] Performed By: #### 1 4979-9 ####[facility]ORATORYCLIA [id number] [address] [place] aPTT Coag (PPP) [Time] 57.2 s High 23.0-32.4 [facility] Comment on above: Order Comment: Speci men Type: BLOOD SPECIMENOrdering Facility: [facility] Address: [address] [place] [address] Performed By: #### 1 4979-9 ####[facility]ORATORYCLIA [id number] [address] Bacteria CSF Culton 07-28-19 Bacteria identified Cx Nom (CSF) CULTURE, CSF: No growth 14 days GRAM STAIN: No organisms seen Rare Polymorphonuclear leukocytes Rare Red Blood Cells Gram stain performed on cytospun specimen. Normal [facility] Comment on above: Performed By: #### 6 06-4 ####[facility]ORATORYCLIA [id number] [address] Bacteria Spec Resp Culton Bacteria identified Respiratory culture Nom (Unsp spec) CULTURE, RESPIRATORY: Rare Normal respiratory chris present GRAM STAIN: No organisms seen Rare Polymorphonuclear leukocytes Rare Epithelial cells Normal [facility] Comment on above: Performed By: #### 3 2355-0 ####[facility]ORATORYCLIA [id number] [address] CASE MANAGEMon 07-27-2021 CASE MANAGEM Normal [facility] CBC W Auto Differential pane l (Bld)on 07-27-2021 Basophils (Bld) [#/Vol] 0.04 10*3/uL Normal <0.11 [facility] Comment on above: Order Comment: Speci men Type: BLOOD SPECIMENOrdering Facility: [facility] Address: [address] [place] [address] Performed By: #### 5 7021-8 ####[facility] CENTERCLIA [id number] [address] [place] Basophils/100 WBC (Bld) 0.4 % Normal [facility] Comment on above: Order Comment: Speci men Type: BLOOD SPECIMENOrdering Facility: [facility] Address: [address] [place] [address] Performed By: #### 5 7021-8 ####[facility]ATORYCLIA [id number] [address] Differential cell count method Nom (Bld) Auto Normal [facility] Comment on above: Order Comment: Speci men Type: BLOOD SPECIMENOrdering Facility: [facility] Address: [address] [place] [address] Performed By: #### 5 7021-8 ####[facility]ORATORYCLIA [id number] [address] [place] Eosinophils (Bld) [#/Vol] 0.50 10*3/uL High <0.46 [facility] Comment on above: Order Comment: Speci men Type: BLOOD SPECIMENOrdering Facility: [facility] Address: [address] [place] [address] Performed By: #### 5 7021-8 ####[facility]ORATORYCLIA [id number] [address] [place] Eosinophils/100 WBC (Bld) 5.2 % Normal [facility] Comment on above: Order Comment: Speci men Type: BLOOD SPECIMENOrdering Facility: [facility] Address: [address] [place] [address] Performed By: #### 5 7021-8 ####[facility]ORATORYCLIA [id number] [address] Erythrocyte distribution width (RBC) [Ratio] 16.8 % High 11.5-15.0 [facility] Comment on above: Order Comment: Speci men Type: BLOOD SPECIMENOrdering Facility: [facility] Address: [address] [place] [address] Performed By: #### 5 7021-8 ####[facility]ORATORYCLIA [id number] [address] Hematocrit (Bld) [Volume fraction] 29.8 % Low 39.0-51.0 [facility] Comment on above: Order Comment: Speci men Type: BLOOD SPECIMENOrdering Facility: [facility] Address: [address] [place] [address] Performed By: #### 5 7021-8 ####[facility]ORATORYCLIA [id number] [address] Hemoglobin (Bld) [Mass/Vol] 9.0 g/dL Low 13.0-17.0 [facility] Comment on above: Order Comment: Speci men Type: BLOOD SPECIMENOrdering Facility: [facility] Address: [address] [place] [address] Performed By: #### 5 7021-8 ####[facility]ORATORYCLIA [id number] [address] IMMATURE GRAN % 0.6 % Normal [facility] Comment on above: Order Comment: Speci men Type: BLOOD SPECIMENOrdering Facility: [facility] Address: [address] [place] [address] Performed By: #### 5 7021-8 ####[facility]ORATORYCLIA [id number] [address] IMMATURE GRAN ABS 0.06 k/uL Normal <0.10 [facility] Comment on above: Order Comment: Speci men Type: BLOOD SPECIMENOrdering Facility: [facility] Address: [address] [place] [address] Performed By: #### 5 7021-8 ####[facility]ORATORYCLIA [id number] [address] Lymphocytes (Bld) [#/Vol] 1.73 10*3/uL Normal 1.00-4.00 [facility] Comment on above: Order Comment: Speci men Type: BLOOD SPECIMENOrdering Facility: [facility] Address: [address] [place] [address] Performed By: #### 5 7021-8 ####[facility]ORATORYCLIA [id number] [address] Lymphocytes/100 WBC (Bld) 17.9 % Normal [facility] Comment on above: Order Comment: Speci men Type: BLOOD SPECIMENOrdering Facility: [facility] Address: [address] [place] [address] Performed By: #### 5 7021-8 ####[facility]ORATORYCLIA [id number] [address] MCH (RBC) [Entitic mass] 28.1 pg Normal 26.0-34.0 [facility] Comment on above: Order Comment: Speci men Type: BLOOD SPECIMENOrdering Facility: [facility] Address: [address] [place] [address] Performed By: #### 5 7021-8 ####[facility]ORATORYCLIA [id number] [address] STATES OF [facility] MCHC (RBC) [Mass/Vol] 30.2 g/dL Low 30.5-36.0 [facility] Comment on above: Order Comment: Speci men Type: BLOOD SPECIMENOrdering Facility: [facility] Address: [address] [place] [address] Performed By: #### 5 7021-8 ####[facility]ORATORYCLIA [id number] [address] STATES OF [facility] MCV (RBC) [Entitic vol] 93.1 fL Normal 80.0-100.0 [facility] Comment on above: Order Comment: Speci men Type: BLOOD SPECIMENOrdering Facility: [facility] Address: [address] [place] [address] Performed By: #### 5 7021-8 ####[facility] LABORATORYCLIA [id number] [place] [address] [place] Monocytes (Bld) [#/Vol] 0.59 10*3/uL Normal <0.87 [facility] Comment on above: Order Comment: Speci men Type: BLOOD SPECIMENOrdering Facility: [facility] Address: [address] [place] [address] Performed By: #### 5 7021-8 ####[facility]ORATORYCLIA [id number] [address] [place] Monocytes/100 WBC (Bld) 6.1 % Normal [facility] Comment on above: Order Comment: Speci men Type: BLOOD SPECIMENOrdering Facility: [facility] Address: [address] [place] [address] Performed By: #### 5 7021-8 ####[facility]ORATORYCLIA [id number] [address] [place] Neutrophils (Bld) [#/Vol] 6.75 10*3/uL Normal 1.45-7.50 [facility] Comment on above: Order Comment: Speci men Type: BLOOD SPECIMENOrdering Facility: [facility] Address: [address] [place] [address] Performed By: #### 5 7021-8 ####[facility]ATORYCLIA [id number] [address] [place] Neutrophils/100 WBC (Bld) 69.8 % Normal [facility] Comment on above: Order Comment: Speci men Type: BLOOD SPECIMENOrdering Facility: [facility] Address: [address] [place] [address] Performed By: #### 5 7021-8 ####[facility]ATORYCLIA [id number] [place] [address] [place] Nucleated RBC (Bld) [#/Vol] 10*3/uL Normal <0.01 [facility] Comment on above: Order Comment: Speci men Type: BLOOD SPECIMENOrdering Facility: [facility] Address: [address] [place] [address] Performed By: #### 5 7021-8 ####[facility]ATORYCLIA [id number] [address] [place] Nucleated RBC/100 WBC (Bld) [Ratio] 0.0 /100 WBC Normal [facility] Comment on above: Order Comment: Speci men Type: BLOOD SPECIMENOrdering Facility: [facility] Address: [address] [place] [address] Performed By: #### 5 7021-8 ####[facility]ORATORYCLIA [id number] [address] [place] Platelet mean volume (Bld) [Entitic vol] 11.3 fL Normal 9.0-12.7 [facility] Comment on above: Order Comment: Speci men Type: BLOOD SPECIMENOrdering Facility: [facility] Address: [address] [place] [address] Performed By: #### 5 7021-8 ####[facility]ATORYCLIA [id number] [address] [place] Platelets (Bld) [#/Vol] 227 10*3/uL Normal 150-400 [facility] Comment on above: Order Comment: Speci men Type: BLOOD SPECIMENOrdering Facility: [facility] Address: [address] [place] [address] Performed By: #### 5 7021-8 ####[facility]ATORYCLIA [id number] [address] [place] RBC (Bld) [#/Vol] 3.20 10*6/uL Low 4.20-6.00 [facility] Comment on above: Order Comment: Speci men Type: BLOOD SPECIMENOrdering Facility: [facility] Address: [address] [place] [address] Performed By: #### 5 7021-8 ####[facility]ATORYCLIA [id number] [address] [place] WBC (Bld) [#/Vol] 9.67 10*3/uL Normal 3.70-11.00 [facility] Comment on above: Order Comment: Speci men Type: BLOOD SPECIMENOrdering Facility: [facility] Address: [address] [place] [address] Performed By: #### 5 7021-8 ####[facility]ORATORYCLIA [id number] [address] [place] CONSULT PROGon 07-27-2021 CONSULT PROG Normal [facility] CSF MANUAL DIFFon 07-27-2021 DIF TTL, CSF 100 cells counted Normal [facility] Comment on above: Order Comment: Speci men Type: CEREBROSPINAL FLUIDOrdering Facility: [facility] Address: [address] [place] [address] Performed By: #### L [id number], 48668-6, [id number] ####[facility]ORATORYCLIA [id number] [place] [address] [place] LYMPH%, CSF 75 % Normal 50-90 [facility] Comment on above: Order Comment: Speci men Type: CEREBROSPINAL FLUIDOrdering Facility: [facility] Address: [address] [place] [address] Performed By: #### L [id number], 43283-2, [id number] ####[facility]ATORYCLIA [id number] [place] [address] [place] MONO%, CSF 22 % Normal 10-50 [facility] Comment on above: Order Comment: Speci men Type: CEREBROSPINAL FLUIDOrdering Facility: [facility] Address: [address] [place] [address] Performed By: #### L [id number], 55488-2, [id number] ####[facility]ATORYCLIA [id number] [address] [place] NEUT%, CSF 2 % Normal 0-3 [facility] Comment on above: Order Comment: Speci men Type: CEREBROSPINAL FLUIDOrdering Facility: [facility] Address: [address] [place] [address] Performed By: #### L [id number], 03171-5, [id number] ####[facility]ATORYCLIA [id number] [place] [address] [place] OTHER CL%, CSF 1 % Normal [facility] Comment on above: Order Comment: Speci men Type: CEREBROSPINAL FLUIDOrdering Facility: [facility] Address: [address] [place] [address] Result Comment: Path ologist review of microscopy results to follow Performed By: #### L [id number], 92640-0, [id number] ####[facility]ORATORYCLIA [id number] [place] [address] [place] CSF PATHOLOGIST INTERP (LAB REFLEX ORDER-NO BILL)on 07-27-2021 CSF STAFF REVIEW Negative Normal [facility] Comment on above: Order Comment: Speci men Type: CEREBROSPINAL FLUIDOrdering Facility: [facility] Address: [address] [place] [address] Performed By: #### L [id number], 80211-1, [id number] ####[facility]ORATORYCLIA [id number] [address] Pathologist name Reviewed by Amador Stevens MD Normal [facility] Comment on above: Order Comment: Speci men Type: CEREBROSPINAL FLUIDOrdering Facility: [facility] Address: [address] [place] [address] Performed By: #### L [id number], 43097-6, [id number] ####[facility]ORATORYCLIA [id number] [address] Cell count panel (CSF)on Clarity (CSF) Clear Normal Clear [facility] Comment on above: Order Comment: Speci men Type: CEREBROSPINAL FLUIDOrdering Facility: [facility] Address: [address] [place] [address] Performed By: #### L [id number], 47582-1, [id number] ####[facility]ATORYCLIA [id number] [address] [place] Clarity (Unsp spec) Not Indicated Normal Clear [facility] Comment on above: Order Comment: Speci men Type: CEREBROSPINAL FLUIDOrdering Facility: [facility] Address: [address] [place] [address] Performed By: #### L [id number], 86922-4, [id number] ####[facility]ATORYCLIA [id number] [address] Color (CSF) Colorless Normal Colorless [facility] Comment on above: Order Comment: Speci men Type: CEREBROSPINAL FLUIDOrdering Facility: [facility] Address: [address] [place] [address] Performed By: #### L [id number], [id number], [id number] ####[facility] LABORATORYCLIA [id number] [address] Color (Spun CSF) Not Indicated Normal Colorless [facility] Comment on above: Order Comment: Speci men Type: CEREBROSPINAL FLUIDOrdering Facility: [facility] [facility] Address: [address] [place] [address] Performed By: #### L [id number], 58649-3, [id number] ####[facility]ATORYCLIA [id number] [address] CSF TUBE NUMBER Sterile Container Normal [facility] Comment on above: Order Comment: Speci men Type: CEREBROSPINAL FLUIDOrdering Facility: [facility] Address: [address] [place] [address] Performed By: #### L [id number], 53157-1, [id number] ####[facility]ATORYCLIA [id number] [address] RBC Manual cnt (CSF) [#/Vol] 39 cells/uL High 0-5 [facility] Comment on above: Order Comment: Speci men Type: CEREBROSPINAL FLUIDOrdering Facility: [facility] Address: [address] [place] [address] Performed By: #### L [id number], 67577-4, [id number] ####[facility]ATORYCLIA [id number] [address] [place] WBC Manual cnt (CSF) [#/Vol] 14 cells/uL High 0-5 [facility] Comment on above: Order Comment: Speci men Type: CEREBROSPINAL FLUIDOrdering Facility: [facility] Address: [address] [place] [address] Performed By: #### L [id number], 37357-1, [id number] ####[facility]ATORYCLIA [id number] [place] [address] [place] Glucose CSF-mCncon 2 Glucose (CSF) [Mass/Vol] 64 mg/dL Normal 40-70 [facility] Comment on above: Order Comment: Speci men Type: CEREBROSPINAL FLUIDOrdering Facility: [facility] Address: [address] [place] [address] Result Comment: Lumb ar CSF glucose values of healthy patients are approximately 60% of the plasma values and must always be compared with a concurrently measured plasma value for adequate clinical interpretation.References: 1. Glucose HK (GLUC3) [package insert V 12.0 Israeli]. [employer], [place], [place]. September 2015. 2. Michelle Moore, Loki, H. (2015). Chapter 7: Glucose and Lactate. Marianela Alcocer al.(eds.), Cerebrospinal Fluid in Clinical Neurology. Story: [employer]. Performed By: #### 2 342-4, 2880-3 ####[facility]ATORYCLIA [id number] [place] [address] [place] NUTRITIONon 07-27-2021 NUTRITION Normal [facility] Prot CSF-mCncon 07-27-2021 Protein (CSF) [Mass/Vol] 58 mg/dL High 15-45 [facility] Comment on above: Order Comment: Speci men Type: CEREBROSPINAL FLUIDOrdering Facility: [facility] Address: [address] [place] [address] Performed By: #### 2 342-4, 2880-3 ####[facility]ATORYCLIA [id number] [address] [place] aPTT PPPon 07-27-2021 aPTT Coag (PPP) [Time] 68.4 s High 23.0-32.4 [facility] Comment on above: Order Comment: Speci men Type: BLOOD SPECIMENOrdering Facility: [facility] Address: [address] [place] [address] Performed By: #### 1 4979-9 ####[facility]ATORYCLIA [id number] [address] aPTT Coag (PPP) [Time] 51.3 s High 23.0-32.4 [facility] Comment on above: Order Comment: Speci men Type: BLOOD SPECIMENOrdering Facility: [facility] Address: [address] [place] [address] Performed By: #### 1 4979-9 ####[facility]ORATORYCLIA [id number] [address] ALLIED HEALTHon 07-26-2021 ALLIED HEALTH HNO ID: [id number] Author: Stephanie Maldonado, wind energy project manager Service: Radiology Author Type: Ornamental Metal Worker Apprentice Type: Allied Health Filed: 07/26/2021 4:10 PM Note Text: Spoke with nurse. Pt getting new EVD today. Try tomorrow. Normal [facility] Bacteria CSF Culton 07-27-19 Bacteria identified Cx Nom (CSF) Abnormal [facility] Comment on above: Performed By: #### 6 06-4 ####[facility]ATORYCLIA [id number] [address] STATES OF [facility] Basic metabolic 2000 panelon 07-26-2021 Anion gap [Moles/Vol] 6 mmol/L Low 9-18 [facility] Comment on above: Order Comment: Speci men Type: BLOOD SPECIMENOrdering Facility: [facility] Address: [address] [place] [address] Performed By: #### 2 4321-2 ####[facility]ATORYCLIA [id number] [address] Calcium [Mass/Vol] 9.2 mg/dL Normal 8.5-10.2 [facility] Comment on above: Order Comment: Speci men Type: BLOOD SPECIMENOrdering Facility: [facility] Address: [address] [place] [address] Performed By: #### 2 4321-2 ####[facility]ATORYCLIA [id number] [place] [address] [place] Chloride [Moles/Vol] 99 mmol/L Normal 97-105 [facility] Comment on above: Order Comment: Speci men Type: BLOOD SPECIMENOrdering Facility: [facility] Address: [address] [place] [address] Performed By: #### 2 4321-2 ####[facility]ATORYCLIA [id number] [place] [address] [place] CO2 [Moles/Vol] 32 mmol/L High 22-30 [facility] Comment on above: Order Comment: Speci men Type: BLOOD SPECIMENOrdering Facility: [facility] Address: [address] [place] [address] Performed By: #### 2 4321-2 ####[facility]ATORYCLIA [id number] [address] [place] Creatinine [Mass/Vol] 0.74 mg/dL Normal 0.73-1.22 [facility] Comment on above: Order Comment: Speci men Type: BLOOD SPECIMENOrdering Facility: [facility] Address: [address] [place] [address] Performed By: #### 2 4321-2 ####[facility]ORATORYCLIA [id number] [address] [place] ESTIMATED GLOMERULAR FILTRATION RATE 98 mL/min/1.73m??? Normal >=60 [facility] Comment on above: Order Comment: Speci men Type: BLOOD SPECIMENOrdering Facility: [facility] Address: [address] [place] [address] Result Comment: Luzmaria mated Glomerular Filtration Rate [...] 2 4321-2 ####[facility]ORATORYCLIA [id number] [place] [address] [place] Glucose [Mass/Vol] 126 mg/dL High 74-99 [facility] Comment on above: Order Comment: Speci men Type: BLOOD SPECIMENOrdering Facility: [facility] Address: [address] [place], [place] [address] Result Comment: The [place] Diabetes Association (ADA) provides guidance for cutoff [...] Standards of Medical Care in Diabetes 2016, [place] Diabetes Association. Diabetes Care. 2016.39(Suppl 1). Performed By: #### 2 4321-2 ####[facility]ORATORYCLIA [id number] [place] [address] [place] Potassium [Moles/Vol] 4.2 mmol/L Normal 3.7-5.1 [facility] Comment on above: Order Comment: Speci men Type: BLOOD SPECIMENOrdering Facility: [facility] Address: [address] [place] [address] Performed By: #### 2 4321-2 ####[facility]ATORYCLIA [id number] [place] [address] [place] Sodium [Moles/Vol] 137 mmol/L Normal 136-144 [facility] Comment on above: Order Comment: Speci men Type: BLOOD SPECIMENOrdering Facility: [facility] Address: [address] [place] [address] Performed By: #### 2 4321-2 ####[facility]ORATORYCLIA [id number] [address] STATES [facility] Urea nitrogen [Mass/Vol] 36 mg/dL High 9-24 [facility] Comment on above: Order Comment: Speci men Type: BLOOD SPECIMENOrdering Facility: [facility] Address: [address] [place] [address] Performed By: #### 2 4321-2 ####[facility]ATORYCLIA [id number] [address] [place] CBC W Auto Differential pane l (Bld)on 07-26-2021 Basophils (Bld) [#/Vol] 0.04 10*3/uL Normal <0.11 [facility] Comment on above: Order Comment: Speci men Type: BLOOD SPECIMENOrdering Facility: [facility] Address: [address] [place] [address] Performed By: #### 5 7021-8 ####[facility]ATORYCLIA [id number] [address] [place] Basophils/100 WBC (Bld) 0.4 % Normal [facility] Comment on above: Order Comment: Speci men Type: BLOOD SPECIMENOrdering Facility: [facility] Address: [address] [place] [address] Performed By: #### 5 7021-8 ####[facility]ORATORYCLIA [id number] [address] STATES [facility] Differential cell count method Nom (Bld) Auto Normal [facility] Comment on above: Order Comment: Speci men Type: BLOOD SPECIMENOrdering Facility: [facility] Address: [address] [place] [address] Performed By: #### 5 7021-8 ####[facility]ATORYCLIA [id number] [place] [address] [place] Eosinophils (Bld) [#/Vol] 0.63 10*3/uL High <0.46 [facility] Comment on above: Order Comment: Speci men Type: BLOOD SPECIMENOrdering Facility: [facility] Address: [address] [place] [address] Performed By: #### 5 7021-8 ####[facility]ATORYCLIA [id number] [address] STATES [facility] Eosinophils/100 WBC (Bld) 5.8 % Normal [facility] Comment on above: Order Comment: Speci men Type: BLOOD SPECIMENOrdering Facility: [facility] Address: [address] [place] [address] Performed By: #### 5 7021-8 ####[facility]ATORYCLIA [id number] [address] [place] Erythrocyte distribution width (RBC) [Ratio] 16.8 % High 11.5-15.0 [facility] Comment on above: Order Comment: Speci men Type: BLOOD SPECIMENOrdering Facility: [facility] Address: [address] [place] [address] Performed By: #### 5 7021-8 ####[facility]ATORYCLIA [id number] [address] STATES OF [facility] Hematocrit (Bld) [Volume fraction] 31.2 % Low 39.0-51.0 [facility] Comment on above: Order Comment: Speci men Type: BLOOD SPECIMENOrdering Facility: [facility] Address: [address] [place] [address] Performed By: #### 5 7021-8 ####[facility]ATORYCLIA [id number] [address] [place] Hemoglobin (Bld) [Mass/Vol] 9.1 g/dL Low 13.0-17.0 [facility] Comment on above: Order Comment: Speci men Type: BLOOD SPECIMENOrdering Facility: [facility] Address: [address] [place] [address] Performed By: #### 5 7021-8 ####[facility]ORATORYCLIA [id number] [address] IMMATURE GRAN % 0.6 % Normal [facility] Comment on above: Order Comment: Speci men Type: BLOOD SPECIMENOrdering Facility: [facility] Address: [address] [place] [address] Performed By: #### 5 7021-8 ####[facility]ATORYCLIA [id number] [address] IMMATURE GRAN ABS 0.07 k/uL Normal <0.10 [facility] Comment on above: Order Comment: Speci men Type: BLOOD SPECIMENOrdering Facility: [facility] Address: [address] [place] [address] Performed By: #### 5 7021-8 ####[facility]ATORYCLIA [id number] [address] STATES [facility] Lymphocytes (Bld) [#/Vol] 2.16 10*3/uL Normal 1.00-4.00 [facility] Comment on above: Order Comment: Speci men Type: BLOOD SPECIMENOrdering Facility: [facility] Address: [address] [place] [address] Performed By: #### 5 7021-8 ####[facility]ATORYCLIA [id number] [address] Lymphocytes/100 WBC (Bld) 20.0 % Normal [facility] Comment on above: Order Comment: Speci men Type: BLOOD SPECIMENOrdering Facility: [facility] Address: [address] [place] [address] Performed By: #### 5 7021-8 ####[facility]ATORYCLIA [id number] [address] STATES [facility] MCH (RBC) [Entitic mass] 27.7 pg Normal 26.0-34.0 [facility] Comment on above: Order Comment: Speci men Type: BLOOD SPECIMENOrdering Facility: [facility] Address: [address] [place] [address] Performed By: #### 5 7021-8 ####[facility]ATORYCLIA [id number] [address] STATES [facility] MCHC (RBC) [Mass/Vol] 29.2 g/dL Low 30.5-36.0 [facility] Comment on above: Order Comment: Speci men Type: BLOOD SPECIMENOrdering Facility: [facility] Address: [address] [place] [address] Performed By: #### 5 7021-8 ####[facility]ATORYCLIA [id number] [address] [place] MCV (RBC) [Entitic vol] 95.1 fL Normal 80.0-100.0 [facility] Comment on above: Order Comment: Speci men Type: BLOOD SPECIMENOrdering Facility: [facility] Address: [address] [place] [address] Performed By: #### 5 7021-8 ####[facility]ATORYCLIA [id number] [address] STATES OF [facility] Monocytes (Bld) [#/Vol] 0.63 10*3/uL Normal <0.87 [facility] Comment on above: Order Comment: Speci men Type: BLOOD SPECIMENOrdering Facility: [facility] Address: [address] [place] [address] Performed By: #### 5 7021-8 ####[facility]ATORYCLIA [id number] [address] Monocytes/100 WBC (Bld) 5.8 % Normal [facility] Comment on above: Order Comment: Speci men Type: BLOOD SPECIMENOrdering Facility: [facility] Address: [address] [place] [address] Performed By: #### 5 7021-8 ####[facility]ATORYCLIA [id number] [address] [place] Neutrophils (Bld) [#/Vol] 7.25 10*3/uL Normal 1.45-7.50 [facility] Comment on above: Order Comment: Speci men Type: BLOOD SPECIMENOrdering Facility: [facility] Address: [address] [place] [address] Performed By: #### 5 7021-8 ####[facility]ATORYCLIA [id number] [address] Neutrophils/100 WBC (Bld) 67.4 % Normal [facility] Comment on above: Order Comment: Speci men Type: BLOOD SPECIMENOrdering Facility: [facility] Address: [address] [place] [address] Performed By: #### 5 7021-8 ####[facility]ATORYCLIA [id number] [address] [place] Nucleated RBC (Bld) [#/Vol] 10*3/uL Normal <0.01 [facility] Comment on above: Order Comment: Speci men Type: BLOOD SPECIMENOrdering Facility: [facility] Address: [address] [place] [address] Performed By: #### 5 7021-8 ####[facility]ATORYCLIA [id number] [address] Nucleated RBC/100 WBC (Bld) [Ratio] 0.0 /100 WBC Normal [facility] Comment on above: Order Comment: Speci men Type: BLOOD SPECIMENOrdering Facility: [facility] Address: [address] [place] [address] Performed By: #### 5 7021-8 ####[facility]ATORYCLIA [id number] [address] [place] Platelet mean volume (Bld) [Entitic vol] 11.2 fL Normal 9.0-12.7 [facility] Comment on above: Order Comment: Speci men Type: BLOOD SPECIMENOrdering Facility: [facility] Address: [address] [place] [address] Performed By: #### 5 7021-8 ####[facility]ATORYCLIA [id number] [address] STATES OF [facility] Platelets (Bld) [#/Vol] 245 10*3/uL Normal 150-400 [facility] Comment on above: Order Comment: Speci men Type: BLOOD SPECIMENOrdering Facility: [facility] Address: [address] [place] [address] Performed By: #### 5 7021-8 ####[facility]ATORYCLIA [id number] [place] [address] [place] RBC (Bld) [#/Vol] 3.28 10*6/uL Low 4.20-6.00 [facility] Comment on above: Order Comment: Speci men Type: BLOOD SPECIMENOrdering Facility: [facility] Address: [address] [place] [address] Performed By: #### 5 7021-8 ####[facility]ATORYCLIA [id number] [address] STATES OF [facility] WBC (Bld) [#/Vol] 10.78 10*3/uL Normal 3.70-11.00 [facility] Comment on above: Order Comment: Speci men Type: BLOOD SPECIMENOrdering Facility: [facility] Address: [address] [place] [address] Performed By: #### 5 7021-8 ####[facility]ATORYCLIA [id number] [address] STATES OF [facility] CSF MANUAL DIFFon 07-26-2021 DIF TTL, CSF 100 cells counted Normal [facility] Comment on above: Order Comment: Speci men Type: CEREBROSPINAL FLUIDOrdering Facility: [facility] Address: [address] [place] [address] Performed By: #### 3 4563-7, [id number], [id number] ####[facility]ATORYCLIA [id number] [address] [place] LYMPH%, CSF 26 % Low 50-90 [facility] Comment on above: Order Comment: Speci men Type: CEREBROSPINAL FLUIDOrdering Facility: [facility] Address: [address] [address] Performed By: #### 3 4563-7, [id number], [id number] ####[facility]ATORYCLIA [id number] [place] [address] [place] MACRO%, CSF 10 % High <1 [facility] Comment on above: Order Comment: Speci men Type: CEREBROSPINAL FLUIDOrdering Facility: [facility] Address: [address] [place] [address] Performed By: #### 3 4563-7, [id number], [id number] ####[facility]ATORYCLIA [id number] [place] [address] [place] MONO%, CSF 20 % Normal 10-50 [facility] Comment on above: Order Comment: Speci men Type: CEREBROSPINAL FLUIDOrdering Facility: [facility] Address: [address] [place] [address] Performed By: #### 3 4563-7, [id number], [id number] ####[facility]ATORYCLIA [id number] [place] [address] [place] NEUT%, CSF 40 % High 0-3 [facility] Comment on above: Order Comment: Speci men Type: CEREBROSPINAL FLUIDOrdering Facility: [facility] Address: [address] [place] [address] Performed By: #### 3 4563-7, [id number], [id number] ####[facility]ORYCLIA [id number] [address] [place] OTHER CL%, CSF 2 % Normal [facility] Comment on above: Order Comment: Speci men Type: CEREBROSPINAL FLUIDOrdering Facility: [facility] Address: [address] [place] [address] Result Comment: Path review to follow. Performed By: #### 3 4563-7, [id number], [id number] ####[facility]ATORYCLIA [id number] [place] [address] [place] REAC LYMPH %, CSF 2 % Normal [facility] Comment on above: Order Comment: Speci men Type: CEREBROSPINAL FLUIDOrdering Facility: [facility] Address: [address] [place] [address] Performed By: #### 3 4563-7, [id number], [id number] ####[facility]ATORYCLIA [id number] [address] [place] CSF PATHOLOGIST INTERP (LAB REFLEX ORDER-NO BILL)on 07-26-2021 CSF STAFF REVIEW Negative for maligna nt cells. Rare bacteria present, cocci in pairs and chains. Correlation with CSF cultures is recommended. Normal [facility] Comment on above: Order Comment: Speci men Type: CEREBROSPINAL FLUIDOrdering Facility: [facility] Address: [address] [place] [address] Performed By: #### 3 4563-7, [id number], [id number] ####[facility]ATORYCLIA [id number] [address] Pathologist name Reviewed by Amador Stevens MD [facility] Comment on above: Order Comment: Speci men Type: CEREBROSPINAL FLUIDOrdering Facility: [facility] Address: [address] [place] [address] Performed By: #### 3 4563-7, [id number], [id number] ####[facility]ATORYCLIA [id number] [address] Cell count panel (CSF)on Clarity (CSF) Slightly Cloudy Abnormal Clear [facility] Comment on above: Order Comment: Speci men Type: CEREBROSPINAL FLUIDOrdering Facility: [facility] Address: [address] [place] [address] Performed By: #### 3 4563-7, [id number], [id number] ####[facility]ATORYCLIA [id number] [address] [place] Clarity (Unsp spec) Clear Normal Clear [facility] Comment on above: Order Comment: Speci men Type: CEREBROSPINAL FLUIDOrdering Facility: [facility] Address: [address] [address] Performed By: #### 3 4563-7, [id number], [id number] ####[facility]ORYCLIA [id number] [address] Color (CSF) Colorless Normal Colorless [facility] Comment on above: Order Comment: Speci men Type: CEREBROSPINAL FLUIDOrdering Facility: [facility] Address: [facility] [place] [address] Performed By: #### 3 4563-7, [id number], [id number] ####[facility]ATORYCLIA [id number] [address] Color (Spun CSF) Not Indicated Normal Colorless [facility] Comment on above: Order Comment: Speci men Type: CEREBROSPINAL FLUIDOrdering Facility: [facility] Address: [address] [place] [address] Performed By: #### 3 4563-7, [id number], [id number] ####[facility]ATORYCLIA [id number] [address] CSF TUBE NUMBER Sterile Container Normal [facility] Comment on above: Order Comment: Speci men Type: CEREBROSPINAL FLUIDOrdering Facility: [facility] Address: [address] [place] [address] Performed By: #### 3 4563-7, [id number], [id number] ####[facility]ATORYCLIA [id number] [address] RBC Manual cnt (CSF) [#/Vol] 1 cells/uL Normal 0-5 [facility] Comment on above: Order Comment: Speci men Type: CEREBROSPINAL FLUIDOrdering Facility: [facility] Address: [facility] [place] [address] Performed By: #### 3 4563-7, [id number], [id number] ####[facility]ORYCLIA [id number] [address] WBC Manual cnt (CSF) [#/Vol] 50 cells/uL High 0-5 [facility] Comment on above: Order Comment: Speci men Type: CEREBROSPINAL FLUIDOrdering Facility: [facility] Address: [address] [place] [address] Performed By: #### 3 4563-7, [id number], [id number] ####[facility] LABORATORYCLIA [id number] [place] [address] [place] [facility] Glucose CSF-ncon Glucose (CSF) [Mass/Vol] 64 mg/dL Normal 40-70 [facility] Comment on above: Order Comment: Speci men Type: CEREBROSPINAL FLUIDOrdering Facility: [facility] Address: [address] [place] [address] Result Comment: Lumb ar CSF glucose values of healthy patients are approximately 60% of the plasma values and must always be compared with a concurrently measured plasma value for adequate clinical interpretation.References: 1. Glucose HK (GLUC3) [package insert V 12.0 Israeli]. [employer], [place], [place]. September 2015. 2. Michelle Moore, Loki HGarfield (2015). Chapter 7: Glucose and Lactate. F. Irina rose al.(eds.), Cerebrospinal Fluid in Clinical Neurology. Story: [employer]. Performed By: #### 2 880-3, 2342-4 ####[facility]ORATORYCLIA [id number] [place] [address] [place] Magnesium SerPl-ncon 07-26 Magnesium [Mass/Vol] 2.3 mg/dL Normal 1.7-2.3 [facility] Comment on above: Order Comment: Speci men Type: BLOOD SPECIMENOrdering Facility: [facility] Address: [address] [place] [address] Performed By: #### 1 9123-9, 2777-1, 3016-3 ####[facility]ATORYCLIA [id number] [place] [address] [place] NURSING PROGon 07-26-2021 NURSING PROG Normal [facility] Phosphate SerPl-ncon 07-26 Phosphate [Mass/Vol] 2.6 mg/dL Low 2.7-4.8 [facility] Comment on above: Order Comment: Speci men Type: BLOOD SPECIMENOrdering Facility: [facility] Address: [address] [place] [address] Performed By: #### 1 9123-9, 2777-1, 3016-3 ####[facility] LABORATORYCLIA [id number] [place] [address] [place] Prot CSF-mCncon 07-26-2021 Protein (CSF) [Mass/Vol] 64 mg/dL High 15-45 [facility] Comment on above: Order Comment: Speci men Type: CEREBROSPINAL FLUIDOrdering Facility: [facility] Address: [address] [place] [address] Performed By: #### 2 880-3, 2342-4 ####[facility] LABORATORYCLIA [id number] [address] OF [facility] THERAPY NTon 07-26-2021 THERAPY NT Normal [facility] TSH SerPl-aCncon 07-26-2021 TSH Qn 1.470 m[IU]/L Normal 0.270-4.200 [facility] Comment on above: Order Comment: Speci men Type: BLOOD SPECIMENOrdering Facility: [facility] Address: [address] [place] [address] Performed By: #### 1 9123-9, 2777-1, 3016-3 ####[facility]ATORYCLIA [id number] [address] [place] VITAMIN B12 BLOODon 07-27-19 Cobalamin (Vitamin B12) [Mass/Vol] 934 pg/mL Normal 232-1,245 [facility] Comment on above: Order Comment: Speci men Type: BLOOD SPECIMENOrdering Facility: [facility] Address: [address] [place] [address] Performed By: #### B 12 ####[facility]ORATORYCLIA [id number] [address] [place] aPTT PPPon 07-26-2021 aPTT Coag (PPP) [Time] 53.6 s High 23.0-32.4 [facility] Comment on above: Order Comment: Speci men Type: BLOOD SPECIMENOrdering Facility: [facility] Address: [address] [place] [address] Performed By: #### 1 4979-9 ####[facility]ATORYCLIA [id number] [address] aPTT Coag (PPP) [Time] 44.9 s High 23.0-32.4 [facility] Comment on above: Order Comment: Speci men Type: BLOOD SPECIMENOrdering Facility: [facility] Address: [address] [place] [address] Performed By: #### 1 4979-9 ####[facility]ORATORYCLIA [id number] [address] ALLIED HEALTHon 07-25-2021 ALLIED HEALTH HNO ID: [id number] Author: RT Rajwinder(R) Service: Radiology Author Type: Technologist Type: Allied Health Filed: 07/25/2021 1:37 PM Note Text: Called floor for MRI screening form [id number] Normal [facility] Bacteria Bld Culton 07-26-19 Bacteria identified Cx Nom (Bld) CULTURE, BLOOD: No growth 5 days Normal [facility] Comment on above: Performed By: #### 6 00-7 ####[facility]ATORYCLIA [id number] [address] Bacteria identified Cx Nom (Bld) CULTURE, BLOOD: No growth 5 days Normal [facility] Comment on above: Performed By: #### 6 00-7 ####[facility]ATORYCLIA [id number] [address] CASE MANAGEMon 07-25-2021 CASE MANAGEM Normal [facility] CBC W Auto Differential pane l (Bld)on 07-25-2021 Basophils (Bld) [#/Vol] 0.06 10*3/uL Normal <0.11 [facility] Comment on above: Order Comment: Speci men Type: BLOOD SPECIMENOrdering Facility: [facility] Address: [address] [place] [address] Performed By: #### 5 7021-8 ####[facility]ORATORYCLIA [id number] [place] [address] [place] Basophils/100 WBC (Bld) 0.6 % Normal [facility] Comment on above: Order Comment: Speci men Type: BLOOD SPECIMENOrdering Facility: [facility] Address: [address] [place] [address] Performed By: #### 5 7021-8 ####[facility]ORATORYCLIA [id number] [address] [place] Differential cell count method Nom (Bld) Auto Normal [facility] Comment on above: Order Comment: Speci men Type: BLOOD SPECIMENOrdering Facility: [facility] Address: [address] [place] [address] Performed By: #### 5 7021-8 ####[facility]ORATORYCLIA [id number] [address] [place] Eosinophils (Bld) [#/Vol] 0.26 10*3/uL Normal <0.46 [facility] Comment on above: Order Comment: Speci men Type: BLOOD SPECIMENOrdering Facility: [facility] Address: [address] [place] [address] Performed By: #### 5 7021-8 ####[facility]ORATORYCLIA [id number] [address] [place] Eosinophils/100 WBC (Bld) 2.5 % Normal [facility] Comment on above: Order Comment: Speci men Type: BLOOD SPECIMENOrdering Facility: [facility] Address: [address] [place] [address] Performed By: #### 5 7021-8 ####[facility]ORATORYCLIA [id number] [address] Erythrocyte distribution width (RBC) [Ratio] 16.9 % High 11.5-15.0 [facility] Comment on above: Order Comment: Speci men Type: BLOOD SPECIMENOrdering Facility: [facility] Address: [address] [place] [address] Performed By: #### 5 7021-8 ####[facility]ORATORYCLIA [id number] [address] OF [facility] Hematocrit (Bld) [Volume fraction] 29.6 % Low 39.0-51.0 [facility] Comment on above: Order Comment: Speci men Type: BLOOD SPECIMENOrdering Facility: [facility] Address: [address] [place] [address] Performed By: #### 5 7021-8 ####[facility]ORATORYCLIA [id number] [address] STATES OF [facility] Hemoglobin (Bld) [Mass/Vol] 8.8 g/dL Low 13.0-17.0 [facility] Comment on above: Order Comment: Speci men Type: BLOOD SPECIMENOrdering Facility: [facility] Address: [address] [place] [address] Performed By: #### 5 7021-8 ####[facility]ORATORYCLIA [id number] [address] [place] IMMATURE GRAN % 0.6 % Normal [facility] Comment on above: Order Comment: Speci men Type: BLOOD SPECIMENOrdering Facility: [facility] Address: [address] [place] [address] Performed By: #### 5 7021-8 ####[facility]ORATORYCLIA [id number] [address] IMMATURE GRAN ABS 0.06 k/uL Normal <0.10 [facility] Comment on above: Order Comment: Speci men Type: BLOOD SPECIMENOrdering Facility: [facility] Address: [address] [place] [address] Performed By: #### 5 7021-8 ####[facility]ORATORYCLIA [id number] [address] [place] Lymphocytes (Bld) [#/Vol] 2.15 10*3/uL Normal 1.00-4.00 [facility] Comment on above: Order Comment: Speci men Type: BLOOD SPECIMENOrdering Facility: [facility] Address: [address] [place] [address] Performed By: #### 5 7021-8 ####[facility]ATORYCLIA [id number] [address] Lymphocytes/100 WBC (Bld) 20.7 % Normal [facility] Comment on above: Order Comment: Speci men Type: BLOOD SPECIMENOrdering Facility: [facility] Address: [address] [place] [address] Performed By: #### 5 7021-8 ####[facility]ORATORYCLIA [id number] [address] MCH (RBC) [Entitic mass] 28.2 pg Normal 26.0-34.0 [facility] Comment on above: Order Comment: Speci men Type: BLOOD SPECIMENOrdering Facility: [facility] Address: [address] [place] [address] Performed By: #### 5 7021-8 ####[facility]ORATORYCLIA [id number] [address] STATES OF [facility] MCHC (RBC) [Mass/Vol] 29.7 g/dL Low 30.5-36.0 [facility] Comment on above: Order Comment: Speci men Type: BLOOD SPECIMENOrdering Facility: [facility] Address: [address] [place] [address] Performed By: #### 5 7021-8 ####[facility]ATORYCLIA [id number] [address] STATES OF [facility] MCV (RBC) [Entitic vol] 94.9 fL Normal 80.0-100.0 [facility] Comment on above: Order Comment: Speci men Type: BLOOD SPECIMENOrdering Facility: [facility] Address: [address] [place] [address] Performed By: #### 5 7021-8 ####[facility] LABORATORYCLIA [id number] [address] [place] Monocytes (Bld) [#/Vol] 0.62 10*3/uL Normal <0.87 [facility] Comment on above: Order Comment: Speci men Type: BLOOD SPECIMENOrdering Facility: [facility] Address: [address] [place] [address] Performed By: #### 5 7021-8 ####[facility]ATORYCLIA [id number] [address] Monocytes/100 WBC (Bld) 6.0 % Normal [facility] Comment on above: Order Comment: Speci men Type: BLOOD SPECIMENOrdering Facility: [facility] Address: [address] [place] [address] Performed By: #### 5 7021-8 ####[facility]ATORYCLIA [id number] [address] [place] Neutrophils (Bld) [#/Vol] 7.25 10*3/uL Normal 1.45-7.50 [facility] Comment on above: Order Comment: Speci men Type: BLOOD SPECIMENOrdering Facility: [facility] Address: [address] [place] [address] Performed By: #### 5 7021-8 ####[facility]ORATORYCLIA [id number] [address] [place] Neutrophils/100 WBC (Bld) 69.6 % Normal [facility] Comment on above: Order Comment: Speci men Type: BLOOD SPECIMENOrdering Facility: [facility] Address: [address] [place] [address] Performed By: #### 5 7021-8 ####[facility] LABORATORYCLIA [id number] [place] [address] [place] Nucleated RBC (Bld) [#/Vol] 10*3/uL Normal <0.01 [facility] Comment on above: Order Comment: Speci men Type: BLOOD SPECIMENOrdering Facility: [facility] Address: [address] [place] [address] Performed By: #### 5 7021-8 ####[facility]ORATORYCLIA [id number] [place] [address] [place] Nucleated RBC/100 WBC (Bld) [Ratio] 0.0 /100 WBC Normal [facility] Comment on above: Order Comment: Speci men Type: BLOOD SPECIMENOrdering Facility: [facility] Address: [address] [place] [address] Performed By: #### 5 7021-8 ####[facility] LABORATORYCLIA [id number] [place] [address] [place] Platelet mean volume (Bld) [Entitic vol] 11.3 fL Normal 9.0-12.7 [facility] Comment on above: Order Comment: Speci men Type: BLOOD SPECIMENOrdering Facility: [facility] Address: [address] [place] [address] Performed By: #### 5 7021-8 ####[facility]ORATORYCLIA [id number] [place] [address] [place] Platelets (Bld) [#/Vol] 243 10*3/uL Normal 150-400 [facility] Comment on above: Order Comment: Speci men Type: BLOOD SPECIMENOrdering Facility: [facility] Address: [address] Performed By: #### 5 7021-8 ####[facility]ORATORYCLIA [id number] [place] [address] [place] RBC (Bld) [#/Vol] 3.12 10*6/uL Low 4.20-6.00 [facility] Comment on above: Order Comment: Speci men Type: BLOOD SPECIMENOrdering Facility: [facility] Address: [address] [place] [address] Performed By: #### 5 7021-8 ####[facility]ORATORYCLIA [id number] [place] [address] [place] WBC (Bld) [#/Vol] 10.40 10*3/uL Normal 3.70-11.00 [facility] Comment on above: Order Comment: Speci men Type: BLOOD SPECIMENOrdering Facility: [facility] Address: [address] [place] [address] Performed By: #### 5 7021-8 ####[facility]ORATORYCLIA [id number] [address] [place] CONSULT PROGon 07-25-2021 CONSULT PROG Normal [facility] MYCOPLASMA PNEUM IGMon 07-25 M. PNEUMO IGM, QUAL Negative Normal Negative [facility] Comment on above: Order Comment: Speci [facility] Type: BLOOD SPECIMENOrdering Facility: [facility] Address: [address] [place] [address] Result Comment: Myco plasma pneumoniae IgM antibody test is used as an aid in diagnosis of recent infection with M. pneumoniae. It may occasionally remain elevated for extended periods after an acute infection. Cannot exclude recent infection if the specimen collected 7-10 days after onset of signs and symptoms. Clinical correlation is required. Performed By: #### M YCOPM ####[facility] LABCLIA [id number] [facility] JANESVILLEDES [id number] [place] NURSING PROGon 07-25-2021 NURSING PROG Normal [facility] THERAPY NTon 07-25-2021 THERAPY NT Normal [facility] THERAPY NT Normal [facility] aPTT PPPon 07-25-2021 aPTT Coag (PPP) [Time] 62.6 s High 23.0-32.4 [facility] Comment on above: Order Comment: Speci men Type: BLOOD SPECIMENOrdering Facility: [facility] Address: [address] [place] [address] Performed By: #### 1 4979-9 ####[facility]ORATORYCLIA [id number] [place] [address] [place] Bacteria Ur Culton 2 Bacteria identified Cx Nom (U) CULTURE, URINE: No growth (<100 CFU/ml) Normal [facility] Comment on above: Performed By: #### 6 30-4 ####[facility]ORATORYCLIA [id number] [place] [address] [place] Basic metabolic 2000 panelon 07-24-2021 Anion gap [Moles/Vol] 13 mmol/L Normal 9-18 [facility] Comment on above: Order Comment: Speci men Type: BLOOD SPECIMENOrdering Facility: [facility] Address: [address] [place] [address] Performed By: #### 1 9123-9, KATIE, 2776-05, 07222-2 ####[facility]ORATORYCLIA [id number] [place] [address] [place] Calcium [Mass/Vol] 9.5 mg/dL Normal 8.5-10.2 [facility] Comment on above: Order Comment: Speci men Type: BLOOD SPECIMENOrdering Facility: [facility] Address: [address] [place] [address] Performed By: #### 1 9123-9, KATIE, 2776-05, 45837-2 ####[facility]ORATORYCLIA [id number] [place] [address] [place] Chloride [Moles/Vol] 102 mmol/L Normal 97-105 [facility] Comment on above: Order Comment: Speci men Type: BLOOD SPECIMENOrdering Facility: [facility] Address: [address] [address] Performed By: #### 1 9123-9, KATIE, 2776-05, ####[facility]ORATORYCLIA [id number] [place] [address] [place] CO2 [Moles/Vol] 28 mmol/L Normal 22-30 [facility] Comment on above: Order Comment: Speci men Type: BLOOD SPECIMENOrdering Facility: [facility] Address: [address] [address] Performed By: #### 1 9123-9, PROCAL, 2777-1, 86439-2 ####[facility] POINTIA [id number] [address] [place] Creatinine [Mass/Vol] 0.86 mg/dL Normal 0.73-1.22 [facility] Comment on above: Order Comment: Speci men Type: BLOOD SPECIMENOrdering Facility: [facility] Address: [address] [address] Performed By: #### 1 9123-9, [facility], 277-, 59523-7 ####[facility] POINTIA [id number] [address] [place] ESTIMATED GLOMERULAR FILTRATION RATE 94 mL/min/1.73m??? Normal >=60 [facility] Comment on above: Order Comment: Speci men Type: BLOOD SPECIMENOrdering Facility: [facility] Address: [address] [address] Result Comment: Luzmaria mated Glomerular Filtration Rate [...] Performed By: #### 1 9123-9, PROCAL, 2777-1, 34974-3 ####[facility] POINTIA [id number] [address] [place] Glucose [Mass/Vol] 148 mg/dL High 74-99 [facility] Comment on above: Order Comment: Speci men Type: BLOOD SPECIMENOrdering Facility: [facility] Address: [address] [address] Result Comment: The [place] [employer] (ADA) provides guidance for cutoff [...] Standards of Medical Care in Diabetes 2016, [place] [employer]. Diabetes Care. 2016.39(Suppl 1). Performed By: #### 1 9123-9, PROCAL, 2776-, 08794-5 ####[facility] LABORATORYCLIA [id number] [place] [address] [place] Potassium [Moles/Vol] 4.0 mmol/L Normal 3.7-5.1 [facility] Comment on above: Order Comment: Shira feldman Type: BLOOD SPECIMENOrdering Facility: [facility] Address: [address] [place] [address] Performed By: #### 1 9123-9, [facility], 2776-05, 33837-1 ####[facility]ENTERCLIA [id number] [place] [address] [place] Sodium [Moles/Vol] 143 mmol/L Normal 136-144 [facility] Comment on above: Order Comment: Shira feldman Type: BLOOD SPECIMENOrdering Facility: [facility] Address: [address] [place] [address] Performed By: #### 1 9123-9, PROC[place], 2776-05, 20538-5 ####[facility]ORATORYCLIA [id number] [place] [address] [place] Urea nitrogen [Mass/Vol] 38 mg/dL High 9-24 [facility] Comment on above: Order Comment: Shira feldman Type: BLOOD SPECIMENOrdering Facility: [facility] Address: [address] [address] Performed By: #### 1 9123-9, PROCAL, 7-, 41345-2 ####[facility]ORATORYCLIA [id number] [place] [address] [place] CBC W Auto Differential pane l (Bld)on 07-24-2021 Basophils (Bld) [#/Vol] 0.06 10*3/uL Normal <0.11 [facility] Comment on above: Order Comment: Speci men Type: BLOOD SPECIMENOrdering Facility: [facility] Address: [address] [place] [address] Performed By: #### 5 7021-8 ####[facility] LABORATORYCLIA [id number] [address] STATES [facility] Basophils/100 WBC (Bld) 0.6 % Normal [facility] Comment on above: Order Comment: Speci men Type: BLOOD SPECIMENOrdering Facility: [facility] Address: [address] [place] [address] Performed By: #### 5 7021-8 ####[facility]ORATORYCLIA [id number] [address] Differential cell count method Nom (Bld) Auto Normal [facility] Comment on above: Order Comment: Speci men Type: BLOOD SPECIMENOrdering Facility: [facility] Address: [address] [place] [address] Performed By: #### 5 7021-8 ####[facility] LABORATORYCLIA [id number] [address] [place] Eosinophils (Bld) [#/Vol] 0.03 10*3/uL Normal <0.46 [facility] Comment on above: Order Comment: Speci men Type: BLOOD SPECIMENOrdering Facility: [facility] Address: [address] [place] [address] Performed By: #### 5 7021-8 ####[facility]ORATORYCLIA [id number] [address] Eosinophils/100 WBC (Bld) 0.3 % Normal [facility] Comment on above: Order Comment: Speci men Type: BLOOD SPECIMENOrdering Facility: [facility] Address: [address] [address] Performed By: #### 5 7021-8 ####[facility]ORATORYCLIA [id number] [address] Erythrocyte distribution width (RBC) [Ratio] 17.0 % High 11.5-15.0 [facility] Comment on above: Order Comment: Speci men Type: BLOOD SPECIMENOrdering Facility: [facility] Address: [address] [place] [address] Performed By: #### 5 7021-8 ####[facility]ORATORYCLIA [id number] [address] Hematocrit (Bld) [Volume fraction] 30.5 % Low 39.0-51.0 [facility] Comment on above: Order Comment: Speci men Type: BLOOD SPECIMENOrdering Facility: [facility] Address: [address] [place] [address] Performed By: #### 5 7021-8 ####[facility] LABORATORYCLIA [id number] [address] Hemoglobin (Bld) [Mass/Vol] 9.0 g/dL Low 13.0-17.0 [facility] Comment on above: Order Comment: Speci men Type: BLOOD SPECIMENOrdering Facility: [facility] Address: [address] [place] [address] Performed By: #### 5 7021-8 ####[facility]ORATORYCLIA [id number] [address] IMMATURE GRAN % 0.5 % Normal [facility] Comment on above: Order Comment: Speci men Type: BLOOD SPECIMENOrdering Facility: [facility] Address: [address] [place] [address] Performed By: #### 5 7021-8 ####[facility]ATORYCLIA [id number] [address] IMMATURE GRAN ABS 0.05 k/uL Normal <0.10 [facility] Comment on above: Order Comment: Speci men Type: BLOOD SPECIMENOrdering Facility: [facility] Address: [address] [place] [address] Performed By: #### 5 7021-8 ####[facility] LABORATORYCLIA [id number] [address] OF [facility] Lymphocytes (Bld) [#/Vol] 1.68 10*3/uL Normal 1.00-4.00 [facility] Comment on above: Order Comment: Speci men Type: BLOOD SPECIMENOrdering Facility: [facility] Address: [address] [place] [address] Performed By: #### 5 7021-8 ####[facility]ATORYCLIA [id number] [address] Lymphocytes/100 WBC (Bld) 16.2 % Normal [facility] Comment on above: Order Comment: Speci men Type: BLOOD SPECIMENOrdering Facility: [facility] Address: [address] [place] [address] Performed By: #### 5 7021-8 ####[facility]ATORYCLIA [id number] [address] [place] MCH (RBC) [Entitic mass] 27.4 pg Normal 26.0-34.0 [facility] Comment on above: Order Comment: Speci men Type: BLOOD SPECIMENOrdering Facility: [facility] Address: [address] [place] [address] Performed By: #### 5 7021-8 ####[facility]ATORYCLIA [id number] [address] [place] MCHC (RBC) [Mass/Vol] 29.5 g/dL Low 30.5-36.0 [facility] Comment on above: Order Comment: Speci men Type: BLOOD SPECIMENOrdering Facility: [facility] Address: [address] [place] [address] Performed By: #### 5 7021-8 ####[facility]ATORYCLIA [id number] [address] [place] MCV (RBC) [Entitic vol] 93.0 fL Normal 80.0-100.0 [facility] Comment on above: Order Comment: Speci men Type: BLOOD SPECIMENOrdering Facility: [facility] Address: [address] [place] [address] Performed By: #### 5 7021-8 ####[facility]ATORYCLIA [id number] [place] [address] [place] Monocytes (Bld) [#/Vol] 0.63 10*3/uL Normal <0.87 [facility] Comment on above: Order Comment: Speci men Type: BLOOD SPECIMENOrdering Facility: [facility] Address: [address] [place] [address] Performed By: #### 5 7021-8 ####[facility]ATORYCLIA [id number] [address] Monocytes/100 WBC (Bld) 6.1 % Normal [facility] Comment on above: Order Comment: Speci men Type: BLOOD SPECIMENOrdering Facility: [facility] Address: [address] [place] [address] Performed By: #### 5 7021-8 ####[facility]ATORYCLIA [id number] [address] [place] Neutrophils (Bld) [#/Vol] 7.91 10*3/uL High 1.45-7.50 [facility] Comment on above: Order Comment: Speci men Type: BLOOD SPECIMENOrdering Facility: [facility] Address: [address] [place] [address] Performed By: #### 5 7021-8 ####[facility]ATORYCLIA [id number] [address] [place] Neutrophils/100 WBC (Bld) 76.3 % Normal [facility] Comment on above: Order Comment: Speci men Type: BLOOD SPECIMENOrdering Facility: [facility] Address: [address] [place] [address] Performed By: #### 5 7021-8 ####[facility]ATORYCLIA [id number] [address] [place] Nucleated RBC (Bld) [#/Vol] 10*3/uL Normal <0.01 [facility] Comment on above: Order Comment: Speci men Type: BLOOD SPECIMENOrdering Facility: [facility] Address: [address] [place] [address] Performed By: #### 5 7021-8 ####[facility]ATORYCLIA [id number] [address] [place] Nucleated RBC/100 WBC (Bld) [Ratio] 0.0 /100 WBC Normal [facility] Comment on above: Order Comment: Speci men Type: BLOOD SPECIMENOrdering Facility: [facility] Address: [address] [place] [address] Performed By: #### 5 7021-8 ####[facility]ATORYCLIA [id number] [address] Platelet mean volume (Bld) [Entitic vol] 11.1 fL Normal 9.0-12.7 [facility] Comment on above: Order Comment: Speci men Type: BLOOD SPECIMENOrdering Facility: [facility] Address: [address] [place] [address] Performed By: #### 5 7021-8 ####[facility]ATORYCLIA [id number] [address] [place] Platelets (Bld) [#/Vol] 285 10*3/uL Normal 150-400 [facility] Comment on above: Order Comment: Speci men Type: BLOOD SPECIMENOrdering Facility: [facility] Address: [address] [place] [address] Performed By: #### 5 7021-8 ####[facility]ATORYCLIA [id number] [address] [place] RBC (Bld) [#/Vol] 3.28 10*6/uL Low 4.20-6.00 [facility] Comment on above: Order Comment: Speci men Type: BLOOD SPECIMENOrdering Facility: [facility] Address: [address] [place] [address] Performed By: #### 5 7021-8 ####[facility]ATORYCLIA [id number] [place] [address] [place] WBC (Bld) [#/Vol] 10.36 10*3/uL Normal 3.70-11.00 [facility] Comment on above: Order Comment: Speci men Type: BLOOD SPECIMENOrdering Facility: [facility] Address: [address] [place] [address] Performed By: #### 5 7021-8 ####[facility]ORATORYCLIA [id number] [address] [place] Legionella Ag Ur Qlon 2021 Legionella sp Ag Ql (U) Negative Normal Negative [facility] Comment on above: Order Comment: Speci men Type: URINE SPECIMENOrdering Facility: [facility] Address: [address] [place] [address] Performed By: #### 3 2781-7 ####[facility]ORATORYCLIA [id number] [place] [address] [place] Magnesium SerPl-mCncon 07-24 Magnesium [Mass/Vol] 2.3 mg/dL Normal 1.7-2.3 [facility] Comment on above: Order Comment: Speci men Type: BLOOD SPECIMENOrdering Facility: [facility] Address: [address] [place] [address] Performed By: #### 1 9123-9, PROCAL, 2777-1, 48932-0 ####[facility]ATORYCLIA [id number] [address] [place] NURSING PROGon 07-24-2021 NURSING PROG Normal [facility] PROCALCITONIN (LAB)on 2021 Procalcitonin [Mass/Vol] 0.15 ng/mL High <0.09 [facility] Comment on above: Order Comment: Speci men Type: BLOOD SPECIMENOrdering Facility: [facility] Address: [address] [place] [address] Result Comment: For a guided interpretation of test results, please visit the Change in Procalcitonin Calculator, [email or web address]. Performed By: #### 1 9123-9, PROCCARLITOS, 2777-1, 00907-3 ####[facility]ATORYCLIA [id number] [address] [place] Phosphate SerPl-mCncon 07-24 Phosphate [Mass/Vol] 3.9 mg/dL Normal 2.7-4.8 [facility] Comment on above: Order Comment: Speci men Type: BLOOD SPECIMENOrdering Facility: [facility] Address: [address] [place] [address] Performed By: #### 1 9123-9, PROCAL, 2777-1, 40876-9 ####[facility]ATORYCLIA [id number] [address] [place] STREPTOCOCCUS PNEUMONIAE AGo n 07-24-2021 STREPTOCOCCUS PNEUMONIAE AG Normal [facility] Comment on above: Performed By: #### S PNAG ####[facility]ATORYCLIA [id number] [address] [place] aPTT PPPon 07-24-2021 aPTT Coag (PPP) [Time] 60.8 s High 23.0-32.4 [facility] Comment on above: Order Comment: Speci men Type: BLOOD SPECIMENOrdering Facility: [facility] Address: [address] [place] [address] Performed By: #### 1 4979-9 ####[facility]ATORYCLIA [id number] [address] [place] aPTT Coag (PPP) [Time] 38.2 s High 23.0-32.4 [facility] Comment on above: Order Comment: Speci men Type: BLOOD SPECIMENOrdering Facility: [facility] Address: [address] [address] Performed By: #### 1 4979-9 ####[facility]ATORYCLIA [id number] [address] aPTT Coag (PPP) [Time] 35.9 s High 23.0-32.4 [facility] Comment on above: Order Comment: Speci men Type: BLOOD SPECIMENOrdering Facility: [facility] Address: [address] [place] [address] Performed By: #### 1 4979-9 ####[facility]ATORYCLIA [id number] [address] aPTT Coag (PPP) [Time] 28.8 s Normal 23.0-32.4 [facility] Comment on above: Order Comment: Speci men Type: BLOOD SPECIMENOrdering Facility: [facility] Address: [address] [place] [address] Performed By: #### 1 4979-9 ####[facility]ATORYCLIA [id number] [address] [place] ALLIED HEALTHon 07-23-2021 ALLIED HEALTH Normal [facility] ALLIED HEALTH Normal [facility] ALLIED HEALTH Normal [facility] ARTERIAL BLOOD GASESon 07-23 Base excess Calc (Bld) [Moles/Vol] 4 mmol/L High 0-2 [facility] Comment on above: Order Comment: Speci men Type: ARTERIAL BLOOD SPECIMENOrdering Facility: [facility] Address: [address] [address] Performed By: #### A LLBG ####[facility]ATORYCLIA [id number] [address] Body temperature 100.58 [degF] Normal [facility] Comment on above: Order Comment: Speci men Type: ARTERIAL BLOOD SPECIMENOrdering Facility: [facility] Address: [address] [place] [address] Performed By: #### A LLBG ####[facility]ORATORYCLIA [id number] [address] STATES OF [facility] CALCIUM IONIZED, PH CORRECTED 1.26 mmol/L Normal 1.08-1.30 [facility] Comment on above: Order Comment: Speci men Type: ARTERIAL BLOOD SPECIMENOrdering Facility: [facility] Address: [address] [place] [address] Performed By: #### A LLBG ####[facility]ATORYCLIA [id number] [place] [address] [place] Calcium.ionized (BldV) [Mass/Vol] 1.25 mmol/L Normal 1.08-1.30 [facility] Comment on above: Order Comment: Speci men Type: ARTERIAL BLOOD SPECIMENOrdering Facility: [facility] Address: [address] [place] [address] Performed By: #### A LLBG ####[facility]ATORYCLIA [id number] [address] Carboxyhemoglobin (BldA) [Mass fraction] 1.2 % Normal 0.0-2.0 [facility] Comment on above: Order Comment: Speci men Type: ARTERIAL BLOOD SPECIMENOrdering Facility: [facility] Address: [address] [place] [address] Result Comment: Carb oxyhemoglobin Reference Range for Smokers: 2.0-8.0% Performed By: #### A LLBG ####[facility]ATORYCLIA [id number] [place] [address] [place] CO2 (Bld) [Partial pressure] 46 mm Hg Normal 36-46 [facility] Comment on above: Order Comment: Speci men Type: ARTERIAL BLOOD SPECIMENOrdering Facility: [facility] Address: [address] [place] [address] Performed By: #### A LLBG ####[facility]ORATORYCLIA [id number] [address] [place] CO2 [Moles/Vol] 27 mmol/L Normal 22-28 [facility] Comment on above: Order Comment: Speci men Type: ARTERIAL BLOOD SPECIMENOrdering Facility: [facility] Address: [address] [place] [address] Performed By: #### A LLBG ####[facility]ATORYCLIA [id number] [address] CO2 adjusted to patient's actual temperature (Bld) [Partial pressure] 48 mmHg High 36-46 [facility] Comment on above: Order Comment: Speci men Type: ARTERIAL BLOOD SPECIMENOrdering Facility: [facility] Address: [address] [place] [address] Performed By: #### A LLBG ####[facility]ATORYCLIA [id number] [address] [place] Glucose [Mass/Vol] 134 mg/dL High 60-105 [facility] Comment on above: Order Comment: Speci men Type: ARTERIAL BLOOD SPECIMENOrdering Facility: [facility] Address: [address] [place] [address] Performed By: #### A LLBG ####[facility]ATORYCLIA [id number] [address] [place] HCO3 (Bld) [Moles/Vol] 29 mmol/L High 22-26 [facility] Comment on above: Order Comment: Speci men Type: ARTERIAL BLOOD SPECIMENOrdering Facility: [facility] Address: [address] [place] [address] Performed By: #### A LLBG ####[facility]ORATORYCLIA [id number] [address] Hematocrit (Bld) [Volume fraction] 31.4 % Low 39.0-51.0 [facility] Comment on above: Order Comment: Speci men Type: ARTERIAL BLOOD SPECIMENOrdering Facility: [facility] Address: [address] [place] [address] Performed By: #### A LLBG ####[facility]ATORYCLIA [id number] [address] [place] Hemoglobin (Bld) [Mass/Vol] 10.2 g/dL Low 13.0-17.0 [facility] Comment on above: Order Comment: Speci men Type: ARTERIAL BLOOD SPECIMENOrdering Facility: [facility] Address: [facility] [place] [address] Performed By: #### A LLBG ####[facility]ORATORYCLIA [id number] [address] Methemoglobin (Bld) [Mass fraction] % Normal 0.0-1.5 [facility] Comment on above: Order Comment: Speci men Type: ARTERIAL BLOOD SPECIMENOrdering Facility: [facility] Address: [address] [place] [address] Performed By: #### A LLBG ####[facility]ATORYCLIA [id number] [address] O2 THERAPY Ventilator Normal [facility] Comment on above: Order Comment: Speci men Type: ARTERIAL BLOOD SPECIMENOrdering Facility: [facility] Address: [address] [place] [address] Performed By: #### A LLBG ####[facility]ATORYCLIA [id number] [address] Oxygen (Bld) [Partial pressure] 113 mm Hg High 85-95 [facility] Comment on above: Order Comment: Speci men Type: ARTERIAL BLOOD SPECIMENOrdering Facility: [facility] Address: [address] [place] [address] Performed By: #### A LLBG ####[facility]ORATORYCLIA [id number] [address] Oxygen adjusted to patient's actual temperature (Bld) [Partial pressure] 119 mmHg High 85-95 [facility] Comment on above: Order Comment: Speci men Type: ARTERIAL BLOOD SPECIMENOrdering Facility: [facility] Address: [address] [place] [address] Performed By: #### A LLBG ####[facility]ORATORYCLIA [id number] [place] [address] OXYGEN SATURATION, ARTERIAL 98 % Normal 95-98 [facility] Comment on above: Order Comment: Speci men Type: ARTERIAL BLOOD SPECIMENOrdering Facility: [facility] Address: [address] [place] [address] Performed By: #### A LLBG ####[facility]ATORYCLIA [id number] [address] [place] Oxyhemoglobin (BldA) [Mass fraction] 96 % Normal 95-98 [facility] Comment on above: Order Comment: Speci men Type: ARTERIAL BLOOD SPECIMENOrdering Facility: [facility] Address: [address] [place] [address] Performed By: #### A LLBG ####[facility]ATORYCLIA [id number] [address] [place] pH (Bld) 7.41 [pH] Normal 7.35-7.45 [facility] Comment on above: Order Comment: Speci men Type: ARTERIAL BLOOD SPECIMENOrdering Facility: [facility] Address: [address] [place] [address] Performed By: #### A LLBG ####[facility]ATORYCLIA [id number] [address] pH adjusted to patient's actual temperature (Bld) 7.40 Normal 7.35-7.45 [facility] Comment on above: Order Comment: Speci men Type: ARTERIAL BLOOD SPECIMENOrdering Facility: [facility] Address: [address] [place] [address] Performed By: #### A LLBG ####[facility]ATORYCLIA [id number] [address] [place] Potassium [Moles/Vol] 4.3 mmol/L Normal 3.5-5.0 [facility] Comment on above: Order Comment: Speci men Type: ARTERIAL BLOOD SPECIMENOrdering Facility: [facility] Address: [address] [place] [address] Performed By: #### A LLBG ####[facility]ATORYCLIA [id number] [address] [place] Sodium [Moles/Vol] 144 mmol/L Normal 136-144 [facility] Comment on above: Order Comment: Speci men Type: ARTERIAL BLOOD SPECIMENOrdering Facility: [facility] Address: [address] [address] Performed By: #### A LLBG ####[facility]ATORYCLIA [id number] [address] Bacteria CSF Culton 07-24-19 22 Bacteria identified Cx Nom (CSF) Abnormal [facility] Comment on above: Performed By: #### 6 06-4 ####[facility]ATORYCLIA [id number] [address] [place] Basic metabolic 2000 panelon 07-23-2021 Anion gap [Moles/Vol] 12 mmol/L Normal 9-18 [facility] Comment on above: Order Comment: Speci men Type: BLOOD SPECIMENOrdering Facility: [facility] Address: [address] [place] [address] Performed By: #### 2 4321-2 ####[facility]ATORYCLIA [id number] [address] [place] Calcium [Mass/Vol] 9.7 mg/dL Normal 8.5-10.2 [facility] Comment on above: Order Comment: Speci men Type: BLOOD SPECIMENOrdering Facility: [facility] Address: [address] [address] Performed By: #### 2 4321-2 ####[facility]ORATORYCLIA [id number] [address] [place] Chloride [Moles/Vol] 105 mmol/L Normal 97-105 [facility] Comment on above: Order Comment: Speci men Type: BLOOD SPECIMENOrdering Facility: [facility] Address: [address] [address] Performed By: #### 2 4321-2 ####[facility]ORATORYCLIA [id number] [address] STATES OF [facility] CO2 [Moles/Vol] 28 mmol/L Normal 22-30 [facility] Comment on above: Order Comment: Speci men Type: BLOOD SPECIMENOrdering Facility: [facility] Address: [address] [place] [address] Performed By: #### 2 4321-2 ####[facility]ORATORYCLIA [id number] [address] STATES OF [facility] Creatinine [Mass/Vol] 0.78 mg/dL Normal 0.73-1.22 [facility] Comment on above: Order Comment: Speci men Type: BLOOD SPECIMENOrdering Facility: [facility] Address: [address] [place] [address] Performed By: #### 2 4321-2 ####[facility]ENTERCLIA [id number] [address] ESTIMATED GLOMERULAR FILTRATION RATE 97 mL/min/1.73m??? Normal >=60 [facility] Comment on above: Order Comment: Speci men Type: BLOOD SPECIMENOrdering Facility: [facility] Address: [address] [place] [address] Result Comment: Luzmaria mated Glomerular Filtration Rate [...] 2 4321-2 ####[facility]ORATORYCLIA [id number] [address] STATES OF [facility] Glucose [Mass/Vol] 127 mg/dL High 74-99 [facility] Comment on above: Order Comment: Speci men Type: BLOOD SPECIMENOrdering Facility: [facility] Address: [address] [place] [address] Result Comment: The [place] [employer] (ADA) provides guidance for cutoff [...] Standards of Medical Care in Diabetes 2016, [place] [employer]. Diabetes Care. 2016.39(Suppl 1). Performed By: #### 2 4321-2 ####[facility]ORATORYCLIA [id number] [address] STATES OF [facility] Potassium [Moles/Vol] 4.3 mmol/L Normal 3.7-5.1 [facility] Comment on above: Order Comment: Shira feldman Type: BLOOD SPECIMENOrdering Facility: [facility] Address: [address] [place] [address] Performed By: #### 2 4321-2 ####[facility]ORATORYCLIA [id number] [address] STATES [facility] Sodium [Moles/Vol] 145 mmol/L High 136-144 [facility] Comment on above: Order Comment: Shira feldman Type: BLOOD SPECIMENOrdering Facility: [facility] Address: [address] [place] [address] Performed By: #### 2 4321-2 ####[facility]ORATORYCLIA [id number] [address] STATES [facility] Urea nitrogen [Mass/Vol] 37 mg/dL High 9-24 [facility] Comment on above: Order Comment: Shira feldman Type: BLOOD SPECIMENOrdering Facility: [facility] Address: [address] [place] [address] Performed By: #### 2 4321-2 ####[facility]ORATORYCLIA [id number] [place] [address] [place] C diff Tox gens Stl Ql MEGAN+p robeon 07-23-2021 C. difficile toxin genes MEGAN+probe Ql (Stl) Negative Normal Negative for C. difficile toxin by PCR [facility] Comment on above: Order Comment: Speci men Type: STOOL SPECIMENOrdering Facility: [facility] Address: [address] [place] [address] Performed By: #### 5 4067-4 ####[facility]ORATORYCLIA [id number] [address] STATES OF [facility] CBC W Auto Differential pane l (Bld)on 07-23-2021 Basophils (Bld) [#/Vol] 0.07 10*3/uL Normal <0.11 [facility] Comment on above: Order Comment: Speci men Type: BLOOD SPECIMENOrdering Facility: [facility] Address: [address] [place] [address] Performed By: #### 5 7021-8 ####[facility]ORATORYCLIA [id number] [address] STATES OF [facility] Basophils/100 WBC (Bld) 0.5 % Normal [facility] Comment on above: Order Comment: Speci men Type: BLOOD SPECIMENOrdering Facility: [facility] Address: [address] [place] [address] Performed By: #### 5 7021-8 ####[facility]ATORYCLIA [id number] [address] Differential cell count method Nom (Bld) Auto Normal [facility] Comment on above: Order Comment: Speci men Type: BLOOD SPECIMENOrdering Facility: [facility] Address: [address] [place] [address] Performed By: #### 5 7021-8 ####[facility]ORATORYCLIA [id number] [place] [address] [place] Eosinophils (Bld) [#/Vol] 10*3/uL Normal <0.46 [facility] Comment on above: Order Comment: Speci men Type: BLOOD SPECIMENOrdering Facility: [facility] Address: [address] [place] [address] Performed By: #### 5 7021-8 ####[facility]ORATORYCLIA [id number] [address] Eosinophils/100 WBC (Bld) 0.2 % Normal [facility] Comment on above: Order Comment: Speci men Type: BLOOD SPECIMENOrdering Facility: [facility] Address: [address] [place] [address] Performed By: #### 5 7021-8 ####[facility]ATORYCLIA [id number] [address] [place] Erythrocyte distribution width (RBC) [Ratio] 16.7 % High 11.5-15.0 [facility] Comment on above: Order Comment: Speci men Type: BLOOD SPECIMENOrdering Facility: [facility] Address: [address] [place] [address] Performed By: #### 5 7021-8 ####[facility]ATORYCLIA [id number] [address] Hematocrit (Bld) [Volume fraction] 32.8 % Low 39.0-51.0 [facility] Comment on above: Order Comment: Speci men Type: BLOOD SPECIMENOrdering Facility: [facility] Address: [address] [place] [address] Performed By: #### 5 7021-8 ####[facility]ATORYCLIA [id number] [address] [place] Hemoglobin (Bld) [Mass/Vol] 9.7 g/dL Low 13.0-17.0 [facility] Comment on above: Order Comment: Speci men Type: BLOOD SPECIMENOrdering Facility: [facility] Address: [address] [place] [address] Performed By: #### 5 7021-8 ####[facility]ORATORYCLIA [id number] [address] [place] IMMATURE GRAN % 0.7 % Normal [facility] Comment on above: Order Comment: Speci men Type: BLOOD SPECIMENOrdering Facility: [facility] Address: [address] [place] [address] Performed By: #### 5 7021-8 ####[facility]ATORYCLIA [id number] [address] IMMATURE GRAN ABS 0.09 k/uL Normal <0.10 [facility] Comment on above: Order Comment: Speci men Type: BLOOD SPECIMENOrdering Facility: [facility] Address: [address] [place] [address] Performed By: #### 5 7021-8 ####[facility]ATORYCLIA [id number] [address] Lymphocytes (Bld) [#/Vol] 1.94 10*3/uL Normal 1.00-4.00 [facility] Comment on above: Order Comment: Speci men Type: BLOOD SPECIMENOrdering Facility: [facility] Address: [address] [place] [address] Performed By: #### 5 7021-8 ####[facility]ATORYCLIA [id number] [address] Lymphocytes/100 WBC (Bld) 14.6 % Normal [facility] Comment on above: Order Comment: Speci men Type: BLOOD SPECIMENOrdering Facility: [facility] Address: [address] [place] [address] Performed By: #### 5 7021-8 ####[facility]ATORYCLIA [id number] [address] MCH (RBC) [Entitic mass] 27.2 pg Normal 26.0-34.0 [facility] Comment on above: Order Comment: Speci men Type: BLOOD SPECIMENOrdering Facility: [facility] Address: [address] [place] [address] Performed By: #### 5 7021-8 ####[facility]ORATORYCLIA [id number] [place] [address] [place] MCHC (RBC) [Mass/Vol] 29.6 g/dL Low 30.5-36.0 [facility] Comment on above: Order Comment: Speci men Type: BLOOD SPECIMENOrdering Facility: [facility] Address: [address] [place] [address] Performed By: #### 5 7021-8 ####[facility]ORATORYCLIA [id number] [place] [address] [place] MCV (RBC) [Entitic vol] 92.1 fL Normal 80.0-100.0 [facility] Comment on above: Order Comment: Speci men Type: BLOOD SPECIMENOrdering Facility: [facility] Address: [address] [place] [address] Performed By: #### 5 7021-8 ####[facility]ATORYCLIA [id number] [address] [place] Monocytes (Bld) [#/Vol] 0.74 10*3/uL Normal <0.87 [facility] Comment on above: Order Comment: Speci men Type: BLOOD SPECIMENOrdering Facility: [facility] Address: [address] [place] [address] Performed By: #### 5 7021-8 ####[facility]ATORYCLIA [id number] [address] Monocytes/100 WBC (Bld) 5.6 % Normal [facility] Comment on above: Order Comment: Speci men Type: BLOOD SPECIMENOrdering Facility: [facility] Address: [address] [place] [address] Performed By: #### 5 7021-8 ####[facility]ATORYCLIA [id number] [address] [place] Neutrophils (Bld) [#/Vol] 10.43 10*3/uL High 1.45-7.50 [facility] Comment on above: Order Comment: Speci men Type: BLOOD SPECIMENOrdering Facility: [facility] Address: [address] [place] [address] Performed By: #### 5 7021-8 ####[facility]ATORYCLIA [id number] [address] Neutrophils/100 WBC (Bld) 78.4 % Normal [facility] Comment on above: Order Comment: Speci men Type: BLOOD SPECIMENOrdering Facility: [facility] Address: [address] [place] [address] Performed By: #### 5 7021-8 ####[facility]ORATORYCLIA [id number] [address] [place] Nucleated RBC (Bld) [#/Vol] 10*3/uL Normal <0.01 [facility] Comment on above: Order Comment: Speci men Type: BLOOD SPECIMENOrdering Facility: [facility] Address: [address] [place] [address] Performed By: #### 5 7021-8 ####[facility]ATORYCLIA [id number] [address] Nucleated RBC/100 WBC (Bld) [Ratio] 0.0 /100 WBC Normal [facility] Comment on above: Order Comment: Speci men Type: BLOOD SPECIMENOrdering Facility: [facility] Address: [address] [place] [address] Performed By: #### 5 7021-8 ####[facility]ATORYCLIA [id number] [address] [place] Platelet mean volume (Bld) [Entitic vol] 11.0 fL Normal 9.0-12.7 [facility] Comment on above: Order Comment: Speci men Type: BLOOD SPECIMENOrdering Facility: [facility] Address: [address] [place] [address] Performed By: #### 5 7021-8 ####[facility]ORATORYCLIA [id number] [address] [place] Platelets (Bld) [#/Vol] 381 10*3/uL Normal 150-400 [facility] Comment on above: Order Comment: Speci men Type: BLOOD SPECIMENOrdering Facility: [facility] Address: [address] [place] [address] Performed By: #### 5 7021-8 ####[facility]ATORYCLIA [id number] [address] OF [facility] RBC (Bld) [#/Vol] 3.56 10*6/uL Low 4.20-6.00 [facility] Comment on above: Order Comment: Speci men Type: BLOOD SPECIMENOrdering Facility: [facility] Address: [address] [place] [address] Performed By: #### 5 7021-8 ####[facility]ATORYCLIA [id number] [address] OF [facility] WBC (Bld) [#/Vol] 13.29 10*3/uL High 3.70-11.00 [facility] Comment on above: Order Comment: Speci men Type: BLOOD SPECIMENOrdering Facility: [facility] Address: [address] [place] [address] Performed By: #### 5 7021-8 ####[facility]ORATORYCLIA [id number] [address] CONSULT PROGon 07-23-2021 CONSULT PROG Normal [facility] CONSULT PROG Normal [facility] CSF MANUAL DIFFon 07-23-2021 DIF TTL, CSF 100 cells counted Normal [facility] Comment on above: Order Comment: Speci men Type: CEREBROSPINAL FLUIDOrdering Facility: [facility] Address: [address] [place] [address] Performed By: #### L [id number], [id number], 24753-2 ####[facility]ATORYCLIA [id number] [address] [place] LYMPH%, CSF 2 % Low 50-90 [facility] Comment on above: Order Comment: Speci men Type: CEREBROSPINAL FLUIDOrdering Facility: [facility] Address: [address] [place] [address] Performed By: #### L [id number], [id number], 87811-9 ####[facility]ORATORYCLIA [id number] [place] [address] [place] MONO%, CSF 9 % Low 10-50 [facility] Comment on above: Order Comment: Speci men Type: CEREBROSPINAL FLUIDOrdering Facility: [facility] Address: [address] [place] [address] Performed By: #### L [id number], [id number], 55304-7 ####[facility]ATORYCLIA [id number] [place] [address] [place] NEUT%, CSF 89 % High 0-3 [facility] Comment on above: Order Comment: Speci men Type: CEREBROSPINAL FLUIDOrdering Facility: [facility] Address: [address] [place] [address] Performed By: #### L [id number], [id number], 81262-4 ####[facility]ORATORYCLIA [id number] [address] CSF PATHOLOGIST INTERP (LAB REFLEX ORDER-NO BILL)on 07-23-2021 CSF STAFF REVIEW Negative for maligna nt cells. Numerous bacterial organisms present, cocci in pairs and chains. Recommend correlation with CSF culture results. Normal [facility] Comment on above: Order Comment: Speci men Type: CEREBROSPINAL FLUIDOrdering Facility: [facility] Address: [address] [place] [address] Performed By: #### L [id number], [id number], 31027-0 ####[facility]ATORYCLIA [id number] [address] Pathologist name Reviewed by Amador Stevens MD [facility] Comment on above: Order Comment: Speci men Type: CEREBROSPINAL FLUIDOrdering Facility: [facility] Address: [address] [place] [address] Performed By: #### L [id number], NSC1913, 09779-9 ####[facility]ATORYCLIA [id number] [address] BRAIN WO IVCONon 07-24-19 CT BRAIN WO IVCON Normal [facility] Cell count panel (CSF)on Clarity (CSF) Clear Normal Clear [facility] Comment on above: Order Comment: Speci men Type: CEREBROSPINAL FLUIDOrdering Facility: [facility] Address: [address] [place] [address] Performed By: #### L [id number], [id number], 36102-5 ####[facility]ATORYCLIA [id number] [address] Clarity (Unsp spec) Not Indicated Normal Clear [facility] Comment on above: Order Comment: Speci men Type: CEREBROSPINAL FLUIDOrdering Facility: [facility] Address: [address] [place] [address] Performed By: #### L [id number], GLR6652, 18784-4 ####[facility]ATORYCLIA [id number] [address] Color (CSF) Colorless Normal Colorless [facility] Comment on above: Order Comment: Speci men Type: CEREBROSPINAL FLUIDOrdering Facility: [facility] Address: [address] [place] [address] Performed By: #### L [id number], PFK6363, 98594-5 ####[facility]ATORYCLIA [id number] [address] Color (Spun CSF) Not Indicated Normal Colorless [facility] Comment on above: Order Comment: Speci men Type: CEREBROSPINAL FLUIDOrdering Facility: [facility] Address: [address] [place] [address] Performed By: #### L [id number], OTC9836, 24005-9 ####[facility]ATORYCLIA [id number] [address] CSF TUBE [employer] Normal [facility] Comment on above: Order Comment: Speci men Type: CEREBROSPINAL FLUIDOrdering Facility: [facility] Address: [address] [place], [place] [address] Performed By: #### L [id number], UEF0461, 68319-5 ####[facility]ATORYCLIA [id number] [address] RBC Manual cnt (CSF) [#/Vol] 7 cells/uL High 0-5 [facility] Comment on above: Order Comment: Speci men Type: CEREBROSPINAL FLUIDOrdering Facility: [facility] Address: [address] [place] [address] Performed By: #### L [id number], [id number], 93854-2 ####[facility]ATORYCLIA [id number] [address] WBC Manual cnt (CSF) [#/Vol] 193 cells/uL High 0-5 [facility] Comment on above: Order Comment: Speci men Type: CEREBROSPINAL FLUIDOrdering Facility: [facility] Address: [address] [place] [address] Performed By: #### L [id number], [id number], 51054-0 ####[facility]ORATORYCLIA [id number] [address] [place] Glucose CSF-ncon 2 Glucose (CSF) [Mass/Vol] 81 mg/dL High 40-70 [facility] Comment on above: Order Comment: Speci men Type: CEREBROSPINAL FLUIDOrdering Facility: [facility] Address: [address] [place] [address] Result Comment: Lumb ar CSF glucose values of healthy patients are approximately 60% of the plasma values and must always be compared with a concurrently measured plasma value for adequate clinical interpretation.References: 1. Glucose HK (GLUC3) [package insert V 12.0 Israeli]. [employer], [place], [place]. September 2015. 2. Michelle Moore, Loki H. (2015). Chapter 7: Glucose and Lactate. Marianela Rothman.(eds.), Cerebrospinal Fluid in Clinical Neurology. Story: [email or web address]. Performed By: #### 2 342-4, 2880-3 ####[facility]ORATORYCLIA [id number] [address] [place] NURSING PROGon 07-23-2021 NURSING PROG Normal [facility] NURSING PROG Normal [facility] Prot CSF-mCncon 07-23-2021 Protein (CSF) [Mass/Vol] 68 mg/dL High 15-45 [facility] Comment on above: Order Comment: Speci men Type: CEREBROSPINAL FLUIDOrdering Facility: [facility] Address: [address] [place] [address] Performed By: #### 2 342-4, 2880-3 ####[facility]ATORYCLIA [id number] [address] Urinalysis complete panel (U )on 07-23-2021 Bilirubin Ql (U) Negative Normal Negative [facility] Comment on above: Order Comment: Speci men Type: URINE SPECIMENOrdering Facility: [facility] Address: [address] [place] [address] Performed By: #### 2 4356-8 ####[facility]ATORYCLIA [id number] [address] [place] Clarity (Unsp spec) Clear Normal Clear [facility] Comment on above: Order Comment: Speci men Type: URINE SPECIMENOrdering Facility: [facility] Address: [address] [place] [address] Performed By: #### 2 4356-8 ####[facility]ATORYCLIA [id number] [address] Color (U) Light Yellow Normal yellow [facility] Comment on above: Order Comment: Speci men Type: URINE SPECIMENOrdering Facility: [facility] Address: [address] [place] [address] Performed By: #### 2 4356-8 ####[facility]ATORYCLIA [id number] [address] [place] Glucose Test strip (U) [Mass/Vol] Negative Normal Negative [facility] Comment on above: Order Comment: Speci men Type: URINE SPECIMENOrdering Facility: [facility] Address: [address] [place] [address] Performed By: #### 2 4356-8 ####[facility]ORATORYCLIA [id number] [address] Hemoglobin Ql (U) Negative Normal Negative [facility] Comment on above: Order Comment: Speci men Type: URINE SPECIMENOrdering Facility: [facility] Address: [address] [place] [address] Performed By: #### 2 4356-8 ####[facility] LABORATORYCLIA [id number] [address] [place] Ketones Ql (U) Negative Normal Negative [facility] Comment on above: Order Comment: Speci men Type: URINE SPECIMENOrdering Facility: [facility] Address: [address] [place] [address] Performed By: #### 2 4356-8 ####[facility]ATORYCLIA [id number] [address] [place] Leukocyte esterase Test strip Ql (U) Negative Normal Negative [facility] Comment on above: Order Comment: Speci men Type: URINE SPECIMENOrdering Facility: [facility] Address: [address] [place] [address] Performed By: #### 2 4356-8 ####[facility]ORATORYCLIA [id number] [address] [place] Nitrite Ql (U) Negative Normal Negative [facility] Comment on above: Order Comment: Speci men Type: URINE SPECIMENOrdering Facility: [facility] Address: [address] [place] [address] Performed By: #### 2 4356-8 ####[facility]ORATORYCLIA [id number] [address] [place] pH (U) 6.0 [pH] Normal 5.0-8.0 [facility] Comment on above: Order Comment: Speci men Type: URINE SPECIMENOrdering Facility: [facility] Address: [address] [place] [address] Performed By: #### 2 4356-8 ####[facility]ORATORYCLIA [id number] [address] Protein (U) [Mass/Vol] 1+ Abnormal Negative [facility] Comment on above: Order Comment: Speci men Type: URINE SPECIMENOrdering Facility: [facility] Address: [address] [place] [address] Performed By: #### 2 4356-8 ####[facility]ORATORYCLIA [id number] [address] RBC LM.HPF (Urine sed) [#/Area] 0-3 /HPF Normal 0-3 /HPF [facility] Comment on above: Order Comment: Speci men Type: URINE SPECIMENOrdering Facility: [facility] Address: [address] [place] [address] Performed By: #### 2 4356-8 ####[facility]ORATORYCLIA [id number] [address] Specific gravity (U) [Rel density] 1.018 Normal 1.005-1.030 [facility] Comment on above: Order Comment: Speci men Type: URINE SPECIMENOrdering Facility: [facility] Address: [address] [place] [address] Performed By: #### 2 4356-8 ####[facility]ATORYCLIA [id number] [address] Urobilinogen Ql (U) Normal Normal Negative [facility] Comment on above: Order Comment: Speci men Type: URINE SPECIMENOrdering Facility: [facility] Address: [address] [place] [address] Performed By: #### 2 4356-8 ####[facility]ORATORYCLIA [id number] [address] [place] WBC LM.HPF (Urine sed) [#/Area] 0-5 /HPF Normal 0-5 /HPF [facility] Comment on above: Order Comment: Speci men Type: URINE SPECIMENOrdering Facility: [facility] Address: [address] [place] [address] Performed By: #### 2 4356-8 ####[facility]ORATORYCLIA [id number] [address] Vancomycin random [Mass/Vol] on 07-23-2021 Vancomycin [Mass/Vol] 12.9 ug/mL Normal 10.0-20.0 [facility] Comment on above: Order Comment: Speci men Type: BLOOD SPECIMENOrdering Facility: [facility] Address: [address] [place] [address] Result Comment: Refe rence ranges and high/low indicator flags are provided as general guidelines only. The treating physician must determine appropriate target levels/dosing based on the specific clinical situation. Performed By: #### 4 091-5 ####[facility]ORATORYCLIA [id number] [address] OF [facility] XR CHEST 1V FRONTALon 2021 XR CHEST 1V FRONTAL Normal [facility] XR CHEST 1V FRONTAL Normal [facility] aPTT PPPon 07-23-2021 aPTT Coag (PPP) [Time] 32.3 s Normal 23.0-32.4 [facility] Comment on above: Order Comment: Speci men Type: BLOOD SPECIMENOrdering Facility: [facility] Address: [address] [address] Performed By: #### 1 4979-9 ####[facility]ORATORYCLIA [id number] [address] aPTT Coag (PPP) [Time] 57.9 s High 23.0-32.4 [facility] Comment on above: Order Comment: Speci men Type: BLOOD SPECIMENOrdering Facility: [facility] Address: [address] [place] [address] Performed By: #### 1 4979-9 ####[facility]ORATORYCLIA [id number] [place] [address] [place] aPTT Coag (PPP) [Time] 46.3 s High 23.0-32.4 [facility] Comment on above: Order Comment: Speci men Type: BLOOD SPECIMENOrdering Facility: [facility] Address: [address] [place] [address] Performed By: #### 1 4979-9 ####[facility]ORATORYCLIA [id number] [place] [address] [place] Basic metabolic 2000 panelon 07-22-2021 Anion gap [Moles/Vol] 8 mmol/L Low 9-18 [facility] Comment on above: Order Comment: Speci men Type: BLOOD SPECIMENOrdering Facility: [facility] Address: [address] [place] [address] Performed By: #### 2 4321-2 ####[facility]ORATORYCLIA [id number] [place] [address] [place] Calcium [Mass/Vol] 9.5 mg/dL Normal 8.5-10.2 [facility] Comment on above: Order Comment: Speci men Type: BLOOD SPECIMENOrdering Facility: [facility] Address: [address] [place] [address] Performed By: #### 2 4321-2 ####[facility] LABORATORYCLIA [id number] [address] [place] Chloride [Moles/Vol] 105 mmol/L Normal 97-105 [facility] Comment on above: Order Comment: Speci men Type: BLOOD SPECIMENOrdering Facility: [facility] Address: [address] [place] [address] Performed By: #### 2 4321-2 ####[facility]ORATORYCLIA [id number] [place] [address] [place] CO2 [Moles/Vol] 32 mmol/L High 22-30 [facility] Comment on above: Order Comment: Speci men Type: BLOOD SPECIMENOrdering Facility: [facility] Address: [address] [place] [address] Performed By: #### 2 4321-2 ####[facility]ORATORYCLIA [id number] [address] STATES OF [facility] Creatinine [Mass/Vol] 0.75 mg/dL Normal 0.73-1.22 [facility] Comment on above: Order Comment: Shira feldman Type: BLOOD SPECIMENOrdering Facility: [facility] Address: [address] [place] [address] Performed By: #### 2 4321-2 ####[facility]ORATORYCLIA [id number] [address] ESTIMATED GLOMERULAR FILTRATION RATE 98 mL/min/1.73m??? Normal >=60 [facility] Comment on above: Order Comment: Shira feldman Type: BLOOD SPECIMENOrdering Facility: [facility] Address: [address] [place] [address] Result Comment: Luzmaria mated Glomerular Filtration Rate [...] 2 4321-2 ####[facility]ATORYCLIA [id number] [address] STATES OF [facility] Glucose [Mass/Vol] 128 mg/dL High 74-99 [facility] Comment on above: Order Comment: Shira francia Type: BLOOD SPECIMENOrdering Facility: [facility] Address: [address] [place] [address] Result Comment: The [place] Diabetes Association (ADA) provides guidance for cutoff [...] Standards of Medical Care in Diabetes 2016, [place] [employer]. Diabetes Care. 2016.39(Suppl 1). Performed By: #### 2 4321-2 ####[facility]ATORYCLIA [id number] [address] STATES OF [facility] Potassium [Moles/Vol] 3.7 mmol/L Normal 3.7-5.1 [facility] Comment on above: Order Comment: Speci men Type: BLOOD SPECIMENOrdering Facility: [facility] Address: [address] [place] [address] Performed By: #### 2 4321-2 ####[facility]ATORYCLIA [id number] [address] Sodium [Moles/Vol] 145 mmol/L High 136-144 [facility] Comment on above: Order Comment: Shira feldman Type: BLOOD SPECIMENOrdering Facility: [facility] Address: [address] [place] [address] Performed By: #### 2 4321-2 ####[facility]ATORYCLIA [id number] [address] Urea nitrogen [Mass/Vol] 39 mg/dL High 9-24 [facility] Comment on above: Order Comment: Shira feldman Type: BLOOD SPECIMENOrdering Facility: [facility] Address: [address] [place] [address] Performed By: #### 2 4321-2 ####[facility]ATORYCLIA [id number] [address] [place] CASE MANAGEMon 07-22-2021 CASE MANAGEM Normal [facility] CBC W Auto Differential pane l (Bld)on 07-22-2021 Basophils (Bld) [#/Vol] 0.06 10*3/uL Normal <0.11 [facility] Comment on above: Order Comment: Speci men Type: BLOOD SPECIMENOrdering Facility: [facility] Address: [address] [address] Performed By: #### 5 7021-8 ####[facility]ATORYCLIA [id number] [address] STATES [facility] Basophils/100 WBC (Bld) 0.5 % Normal [facility] Comment on above: Order Comment: Speci men Type: BLOOD SPECIMENOrdering Facility: [facility] Address: [address] [place] [address] Performed By: #### 5 7021-8 ####[facility]ATORYCLIA [id number] [address] Differential cell count method Nom (Bld) Auto Normal [facility] Comment on above: Order Comment: Speci men Type: BLOOD SPECIMENOrdering Facility: [facility] Address: [address] [place] [address] Performed By: #### 5 7021-8 ####[facility]ATORYCLIA [id number] [address] [place] Eosinophils (Bld) [#/Vol] 0.44 10*3/uL Normal <0.46 [facility] Comment on above: Order Comment: Speci men Type: BLOOD SPECIMENOrdering Facility: [facility] Address: [address] [place] [address] Performed By: #### 5 7021-8 ####[facility]ATORYCLIA [id number] [address] Eosinophils/100 WBC (Bld) 3.9 % Normal [facility] Comment on above: Order Comment: Speci men Type: BLOOD SPECIMENOrdering Facility: [facility] Address: [address] [place] [address] Performed By: #### 5 7021-8 ####[facility]ATORYCLIA [id number] [address] [place] Erythrocyte distribution width (RBC) [Ratio] 17.0 % High 11.5-15.0 [facility] Comment on above: Order Comment: Speci men Type: BLOOD SPECIMENOrdering Facility: [facility] Address: [address] [place] [address] Performed By: #### 5 7021-8 ####[facility]ORATORYCLIA [id number] [address] Hematocrit (Bld) [Volume fraction] 32.0 % Low 39.0-51.0 [facility] Comment on above: Order Comment: Speci men Type: BLOOD SPECIMENOrdering Facility: [facility] Address: [address] [place] [address] Performed By: #### 5 7021-8 ####[facility]ATORYCLIA [id number] [address] Hemoglobin (Bld) [Mass/Vol] 9.3 g/dL Low 13.0-17.0 [facility] Comment on above: Order Comment: Speci men Type: BLOOD SPECIMENOrdering Facility: [facility] Address: [address] [place] [address] Performed By: #### 5 7021-8 ####[facility]ORATORYCLIA [id number] [address] IMMATURE GRAN % 0.5 % Normal [facility] Comment on above: Order Comment: Speci men Type: BLOOD SPECIMENOrdering Facility: [facility] Address: [address] [place] [address] Performed By: #### 5 7021-8 ####[facility]ATORYCLIA [id number] [address] IMMATURE GRAN ABS 0.06 k/uL Normal <0.10 [facility] Comment on above: Order Comment: Speci men Type: BLOOD SPECIMENOrdering Facility: [facility] Address: [address] [place] [address] Performed By: #### 5 7021-8 ####[facility]ORATORYCLIA [id number] [address] Lymphocytes (Bld) [#/Vol] 1.83 10*3/uL Normal 1.00-4.00 [facility] Comment on above: Order Comment: Speci men Type: BLOOD SPECIMENOrdering Facility: [facility] Address: [address] [place] [address] Performed By: #### 5 7021-8 ####[facility]ATORYCLIA [id number] [address] Lymphocytes/100 WBC (Bld) 16.1 % Normal [facility] Comment on above: Order Comment: Speci men Type: BLOOD SPECIMENOrdering Facility: [facility] Address: [address] [place] [address] Performed By: #### 5 7021-8 ####[facility]ORATORYCLIA [id number] [address] STATES OF [facility] MCH (RBC) [Entitic mass] 27.0 pg Normal 26.0-34.0 [facility] Comment on above: Order Comment: Speci men Type: BLOOD SPECIMENOrdering Facility: [facility] Address: [address] [place] [address] Performed By: #### 5 7021-8 ####[facility]ATORYCLIA [id number] [address] MCHC (RBC) [Mass/Vol] 29.1 g/dL Low 30.5-36.0 [facility] Comment on above: Order Comment: Speci men Type: BLOOD SPECIMENOrdering Facility: [facility] Address: [address] [place] [address] Performed By: #### 5 7021-8 ####[facility]ATORYCLIA [id number] [address] MCV (RBC) [Entitic vol] 92.8 fL Normal 80.0-100.0 [facility] Comment on above: Order Comment: Speci men Type: BLOOD SPECIMENOrdering Facility: [facility] Address: [address] [place] [address] Performed By: #### 5 7021-8 ####[facility]ORATORYCLIA [id number] [place] [address] [place] Monocytes (Bld) [#/Vol] 0.87 10*3/uL High <0.87 [facility] Comment on above: Order Comment: Speci men Type: BLOOD SPECIMENOrdering Facility: [facility] Address: [address] [place] [address] Performed By: #### 5 7021-8 ####[facility]ATORYCLIA [id number] [place] [address] [place] Monocytes/100 WBC (Bld) 7.6 % Normal [facility] Comment on above: Order Comment: Speci men Type: BLOOD SPECIMENOrdering Facility: [facility] Address: [address] [place] [address] Performed By: #### 5 7021-8 ####[facility]ORATORYCLIA [id number] [place] [address] [place] Neutrophils (Bld) [#/Vol] 8.12 10*3/uL High 1.45-7.50 [facility] Comment on above: Order Comment: Speci men Type: BLOOD SPECIMENOrdering Facility: [facility] Address: [address] [place] [address] Performed By: #### 5 7021-8 ####[facility]ATORYCLIA [id number] [address] [place] Neutrophils/100 WBC (Bld) 71.4 % Normal [facility] Comment on above: Order Comment: Speci men Type: BLOOD SPECIMENOrdering Facility: [facility] Address: [address] [place] [address] Performed By: #### 5 7021-8 ####[facility]ATORYCLIA [id number] [place] [address] [place] Nucleated RBC (Bld) [#/Vol] 10*3/uL Normal <0.01 [facility] Comment on above: Order Comment: Speci men Type: BLOOD SPECIMENOrdering Facility: [facility] Address: [address] [address] Performed By: #### 5 7021-8 ####[facility]ATORYCLIA [id number] [address] [place] Nucleated RBC/100 WBC (Bld) [Ratio] 0.0 /100 WBC Normal [facility] Comment on above: Order Comment: Speci men Type: BLOOD SPECIMENOrdering Facility: [facility] Address: [address] [place] [address] Performed By: #### 5 7021-8 ####[facility]ORATORYCLIA [id number] [address] [place] Platelet mean volume (Bld) [Entitic vol] 10.8 fL Normal 9.0-12.7 [facility] Comment on above: Order Comment: Speci men Type: BLOOD SPECIMENOrdering Facility: [facility] Address: [address] [place] [address] Performed By: #### 5 7021-8 ####[facility]ATORYCLIA [id number] [place] [address] [place] Platelets (Bld) [#/Vol] 362 10*3/uL Normal 150-400 [facility] Comment on above: Order Comment: Speci men Type: BLOOD SPECIMENOrdering Facility: [facility] Address: [address] [place] [address] Performed By: #### 5 7021-8 ####[facility]ATORYCLIA [id number] [place] [address] [place] RBC (Bld) [#/Vol] 3.45 10*6/uL Low 4.20-6.00 [facility] Comment on above: Order Comment: Speci men Type: BLOOD SPECIMENOrdering Facility: [facility] Address: [address] [place] [address] Performed By: #### 5 7021-8 ####[facility]ORATORYCLIA [id number] [address] [place] WBC (Bld) [#/Vol] 11.38 10*3/uL High 3.70-11.00 [facility] Comment on above: Order Comment: Speci men Type: BLOOD SPECIMENOrdering Facility: [facility] Address: [address] [place] [address] Performed By: #### 5 7021-8 ####[facility]ORATORYCLIA [id number] [address] Magnesium SerPl-mCncon 07-22 Magnesium [Mass/Vol] 2.3 mg/dL Normal 1.7-2.3 [facility] Comment on above: Order Comment: Speci men Type: BLOOD SPECIMENOrdering Facility: [facility] Address: [address] [place] [address] Performed By: #### 1 9123-9, 2777-1, 06903-7 ####[facility]ATORYCLIA [id number] [address] NT-proBNP SerPl-ncon 07-22 Natriuretic peptide.B prohormone N-Terminal [Mass/Vol] 328 pg/mL High <125 [facility] Comment on above: Order Comment: Speci men Type: BLOOD SPECIMENOrdering Facility: [facility] Address: [address] [place] [address] Performed By: #### 1 9123-9, 2777-1, 11705-8 ####[facility]ORATORYCLIA [id number] [address] [place] NURSING PROGon 07-22-2021 NURSING PROG Normal [facility] NUTRITIONon 07-22-2021 NUTRITION Normal [facility] Phosphate SerPl-mCncon 07-22 Phosphate [Mass/Vol] 3.5 mg/dL Normal 2.7-4.8 [facility] Comment on above: Order Comment: Speci men Type: BLOOD SPECIMENOrdering Facility: [facility] Address: [address] [place] [address] Performed By: #### 1 9123-9, 2777-1, 64220-5 ####[facility]ORATORYCLIA [id number] [address] THERAPY NTon 07-22-2021 THERAPY NT Normal [facility] THERAPY NT Normal [facility] aPTT PPPon 07-22-2021 aPTT Coag (PPP) [Time] 50.1 s High 23.0-32.4 [facility] Comment on above: Order Comment: Speci men Type: BLOOD SPECIMENOrdering Facility: [facility] Address: [address] [place] [address] Performed By: #### 1 4979-9 ####[facility]ORATORYCLIA [id number] [address] OF [facility] ALLIED HEALTHon 07-21-2021 ALLIED HEALTH Normal [facility] Bacteria Spec Resp Culton Bacteria identified Respiratory culture Nom (Unsp spec) Abnormal [facility] Comment on above: Performed By: #### 3 2355-0 ####[facility]ATORYCLIA [id number] [address] [place] Basic metabolic 2000 panelon 07-21-2021 Anion gap [Moles/Vol] 9 mmol/L Normal - [facility] Comment on above: Order Comment: Speci men Type: BLOOD SPECIMENOrdering Facility: [facility] Address: [address] [place] [address] Performed By: #### 1 9123-9, 2777-, 76356-2 ####[facility]ATORYCLIA [id number] [address] [place] Calcium [Mass/Vol] 9.9 mg/dL Normal 8.5-10.2 [facility] Comment on above: Order Comment: Speci men Type: BLOOD SPECIMENOrdering Facility: [facility] Address: [facility] [address] Performed By: #### 1 9123-9, 2777-1, 94440-6 ####[facility]ATORYCLIA [id number] [address] [place] Chloride [Moles/Vol] 103 mmol/L Normal 97-105 [facility] Comment on above: Order Comment: Speci francia Type: BLOOD SPECIMENOrdering Facility: [facility] Address: [address] [place] [address] Performed By: #### 1 9123-9, 2777-1, 47592-4 ####[facility]ATORYCLIA [id number] [address] [place] CO2 [Moles/Vol] 33 mmol/L High 22-30 [facility] Comment on above: Order Comment: Speci men Type: BLOOD SPECIMENOrdering Facility: [facility] Address: [address] [place] [address] Performed By: #### 1 9123-9, 2777-1, 34914-0 ####[facility]ENTERCLIA [id number] [address] Creatinine [Mass/Vol] 0.80 mg/dL Normal 0.73-1.22 [facility] Comment on above: Order Comment: Speci men Type: BLOOD SPECIMENOrdering Facility: [facility] Address: [address] [place] [address] Performed By: #### 1 9123-9, 2777-1, 44883-4 ####[facility]ATORYCLIA [id number] [address] ESTIMATED GLOMERULAR FILTRATION RATE 96 mL/min/1.73m??? Normal >=60 [facility] Comment on above: Order Comment: Speci men Type: BLOOD SPECIMENOrdering Facility: [facility] Address: [address] [place] [address] Result Comment: Luzmaria mated Glomerular Filtration Rate [...] GFR. Performed By: #### 1 9123-9, 2777-, 48456-3 ####[facility]ATORYCLIA [id number] [place] [address] [place] Glucose [Mass/Vol] 148 mg/dL High 74-99 [facility] Comment on above: Order Comment: Shira feldman Type: BLOOD SPECIMENOrdering Facility: [facility] Address: [address] [place] [address] Result Comment: The [place] Diabetes Association (ADA) provides guidance for cutoff [...] Standards of Medical Care in Diabetes 2016, [place] [employer]. Diabetes Care. 2016.39(Suppl 1). Performed By: #### 1 9123-9, 2777-, 69253-2 ####[facility]ENTERCLIA [id number] [place] [address] [place] Potassium [Moles/Vol] 4.1 mmol/L Normal 3.7-5.1 [facility] Comment on above: Order Comment: Shira feldman Type: BLOOD SPECIMENOrdering Facility: [facility] Address: [address] [id number] Performed By: #### 1 9123-9, 2777-, 49117-2 ####[facility]ORATORYCLIA [id number] [place] [address] [place] Sodium [Moles/Vol] 145 mmol/L High 136-144 [facility] Comment on above: Order Comment: Shira feldman Type: BLOOD SPECIMENOrdering Facility: [facility] Address: [address] [address] Performed By: #### 1 9123-9, 2777-1, 42975-6 ####[facility]ATORYCLIA [id number] [address] STATES [facility] Urea nitrogen [Mass/Vol] 40 mg/dL High 9-24 [facility] Comment on above: Order Comment: Speci men Type: BLOOD SPECIMENOrdering Facility: [facility] Address: [address] [place] [address] Performed By: #### 1 9123-9, 2777-1, 94038-2 ####[facility]ATORYCLIA [id number] [address] CBC W Auto Differential pane l (Bld)on 07-21-2021 Basophils (Bld) [#/Vol] 0.06 10*3/uL Normal <0.11 [facility] Comment on above: Order Comment: Speci men Type: BLOOD SPECIMENOrdering Facility: [facility] Address: [address] [place] [address] Performed By: #### 5 7021-8 ####[facility]ORATORYCLIA [id number] [address] STATES [facility] Basophils/100 WBC (Bld) 0.4 % Normal [facility] Comment on above: Order Comment: Speci men Type: BLOOD SPECIMENOrdering Facility: [facility] Address: [address] [place] [address] Performed By: #### 5 7021-8 ####[facility]ATORYCLIA [id number] [address] Differential cell count method Nom (Bld) Auto Normal [facility] Comment on above: Order Comment: Speci men Type: BLOOD SPECIMENOrdering Facility: [facility] Address: [address] [place] [address] Performed By: #### 5 7021-8 ####[facility]ATORYCLIA [id number] [address] [place] Eosinophils (Bld) [#/Vol] 0.04 10*3/uL Normal <0.46 [facility] Comment on above: Order Comment: Speci men Type: BLOOD SPECIMENOrdering Facility: [facility] Address: [address] [place] [address] Performed By: #### 5 7021-8 ####[facility]ATORYCLIA [id number] [address] [place] Eosinophils/100 WBC (Bld) 0.3 % Normal [facility] Comment on above: Order Comment: Speci men Type: BLOOD SPECIMENOrdering Facility: [facility] Address: [address] [place] [address] Performed By: #### 5 7021-8 ####[facility]ORATORYCLIA [id number] [address] STATES [facility] Erythrocyte distribution width (RBC) [Ratio] 17.0 % High 11.5-15.0 [facility] Comment on above: Order Comment: Speci men Type: BLOOD SPECIMENOrdering Facility: [facility] Address: [address] [place] [address] Performed By: #### 5 7021-8 ####[facility]ORATORYCLIA [id number] [address] [place] Hematocrit (Bld) [Volume fraction] 33.1 % Low 39.0-51.0 [facility] Comment on above: Order Comment: Speci men Type: BLOOD SPECIMENOrdering Facility: [facility] Address: [address] [place] [address] Performed By: #### 5 7021-8 ####[facility]ATORYCLIA [id number] [address] [place] Hemoglobin (Bld) [Mass/Vol] 9.7 g/dL Low 13.0-17.0 [facility] Comment on above: Order Comment: Speci men Type: BLOOD SPECIMENOrdering Facility: [facility] Address: [address] [place] [address] Performed By: #### 5 7021-8 ####[facility]ORATORYCLIA [id number] [address] IMMATURE GRAN % 0.5 % Normal [facility] Comment on above: Order Comment: Speci men Type: BLOOD SPECIMENOrdering Facility: [facility] Address: [address] [place] [address] Performed By: #### 5 7021-8 ####[facility]ATORYCLIA [id number] [address] IMMATURE GRAN ABS 0.07 k/uL Normal <0.10 [facility] Comment on above: Order Comment: Speci men Type: BLOOD SPECIMENOrdering Facility: [facility] Address: [address] [place] [address] Performed By: #### 5 7021-8 ####[facility]ORATORYCLIA [id number] [address] Lymphocytes (Bld) [#/Vol] 1.99 10*3/uL Normal 1.00-4.00 [facility] Comment on above: Order Comment: Speci men Type: BLOOD SPECIMENOrdering Facility: [facility] Address: [address] [place] [address] Performed By: #### 5 7021-8 ####[facility]ATORYCLIA [id number] [address] Lymphocytes/100 WBC (Bld) 13.4 % Normal [facility] Comment on above: Order Comment: Speci men Type: BLOOD SPECIMENOrdering Facility: [facility] Address: [address] [place] [address] Performed By: #### 5 7021-8 ####[facility]ATORYCLIA [id number] [address] MCH (RBC) [Entitic mass] 27.2 pg Normal 26.0-34.0 [facility] Comment on above: Order Comment: Speci men Type: BLOOD SPECIMENOrdering Facility: [facility] Address: [address] [place] [address] Performed By: #### 5 7021-8 ####[facility] LABORATORYCLIA [id number] [place] MCHC (RBC) [Mass/Vol] 29.3 g/dL Low 30.5-36.0 [facility] Comment on above: Order Comment: Speci men Type: BLOOD SPECIMENOrdering Facility: [facility] Address: [address] [place] [address] Performed By: #### 5 7021-8 ####[facility] LABORATORYCLIA [id number] [address] [place] MCV (RBC) [Entitic vol] 92.7 fL Normal 80.0-100.0 [facility] Comment on above: Order Comment: Speci men Type: BLOOD SPECIMENOrdering Facility: [facility] Address: [address] [place] [address] Performed By: #### 5 7021-8 ####[facility] LABORATORYCLIA [id number] [address] [place] Monocytes (Bld) [#/Vol] 1.10 10*3/uL High <0.87 [facility] Comment on above: Order Comment: Speci men Type: BLOOD SPECIMENOrdering Facility: [facility] Address: [address] [place] [address] Performed By: #### 5 7021-8 ####[facility] LABORATORYCLIA [id number] [address] STATES [facility] Monocytes/100 WBC (Bld) 7.4 % Normal [facility] Comment on above: Order Comment: Speci men Type: BLOOD SPECIMENOrdering Facility: [facility] Address: [address] [place] [address] Performed By: #### 5 7021-8 ####[facility] LABORATORYCLIA [id number] [place] [address] [place] Neutrophils (Bld) [#/Vol] 11.61 10*3/uL High 1.45-7.50 [facility] Comment on above: Order Comment: Speci men Type: BLOOD SPECIMENOrdering Facility: [facility] Address: [address] [place] [address] Performed By: #### 5 7021-8 ####[facility] LABORATORYCLIA [id number] [address] Neutrophils/100 WBC (Bld) 78.0 % Normal [facility] Comment on above: Order Comment: Speci men Type: BLOOD SPECIMENOrdering Facility: [facility] Address: [address] [place] [address] Performed By: #### 5 7021-8 ####[facility] LABORATORYCLIA [id number] [address] [place] Nucleated RBC (Bld) [#/Vol] 10*3/uL Normal <0.01 [facility] Comment on above: Order Comment: Speci men Type: BLOOD SPECIMENOrdering Facility: [facility] Address: [address] [place] [address] Performed By: #### 5 7021-8 ####[facility] LABORATORYCLIA [id number] [address] Nucleated RBC/100 WBC (Bld) [Ratio] 0.0 /100 WBC Normal [facility] Comment on above: Order Comment: Speci men Type: BLOOD SPECIMENOrdering Facility: [facility] Address: [address] [place] [address] Performed By: #### 5 7021-8 ####[facility] LABORATORYCLIA [id number] [place] [address] [place] Platelet mean volume (Bld) [Entitic vol] 10.4 fL Normal 9.0-12.7 [facility] Comment on above: Order Comment: Speci men Type: BLOOD SPECIMENOrdering Facility: [facility] Address: [address] [place] [address] Performed By: #### 5 7021-8 ####[facility] LABORATORYCLIA [id number] [address] OF [facility] Platelets (Bld) [#/Vol] 396 10*3/uL Normal 150-400 [facility] Comment on above: Order Comment: Speci men Type: BLOOD SPECIMENOrdering Facility: [facility] Address: [address] [place] [address] Performed By: #### 5 7021-8 ####[facility] LABORATORYCLIA [id number] [address] OF [facility] RBC (Bld) [#/Vol] 3.57 10*6/uL Low 4.20-6.00 [facility] Comment on above: Order Comment: Speci men Type: BLOOD SPECIMENOrdering Facility: [facility] Address: [address] [place] [address] Performed By: #### 5 7021-8 ####[facility] LABORATORYCLIA [id number] [address] OF [facility] WBC (Bld) [#/Vol] 14.87 10*3/uL High 3.70-11.00 [facility] Comment on above: Order Comment: Speci men Type: BLOOD SPECIMENOrdering Facility: [facility] Address: [address] [place] [address] Performed By: #### 5 7021-8 ####[facility]ATORYCLIA [id number] [address] Gas and Carbon monoxide pane l (BldV)on 07-21-2021 Base excess Calc (BldV) [Moles/Vol] 7 mmol/L High 0-2 [facility] Comment on above: Order Comment: Speci men Type: VENOUS BLOOD SPECIMENOrdering Facility: [facility] Address: [address] [place] [address] Performed By: #### 2 4344-4 ####[facility] LABORATORYCLIA [id number] [address] Body temperature 98.6 [degF] Normal [facility] Comment on above: Order Comment: Speci men Type: VENOUS BLOOD SPECIMENOrdering Facility: [facility] Address: [address] [place] [address] Performed By: #### 2 4344-4 ####[facility] LABORATORYCLIA [id number] [address] [place] CALCIUM IONIZED, PH CORRECTED 1.21 mmol/L Normal 1.08-1.30 [facility] Comment on above: Order Comment: Speci men Type: VENOUS BLOOD SPECIMENOrdering Facility: [facility] Address: [address] [place] [address] Performed By: #### 2 4344-4 ####[facility] LABORATORYCLIA [id number] [address] OF [facility] Calcium.ionized (BldV) [Mass/Vol] 1.23 mmol/L Normal 1.08-1.30 [facility] Comment on above: Order Comment: Speci men Type: VENOUS BLOOD SPECIMENOrdering Facility: [facility] Address: [address] [place] [address] Performed By: #### 2 4344-4 ####[facility] LABORATORYCLIA [id number] [address] [place] Carboxyhemoglobin (BldV) [Mass fraction] 2.3 % High 0.0-2.0 [facility] Comment on above: Order Comment: Speci men Type: VENOUS BLOOD SPECIMENOrdering Facility: [facility] Address: [address] [place] [address] Result Comment: Carb oxyhemoglobin Reference Range for Smokers: 2.0-8.0% Performed By: #### 2 4344-4 ####[facility] LABORATORYCLIA [id number] [address] [place] CO2 (BldV) [Partial pressure] 58 mm[Hg] High 42-55 [facility] Comment on above: Order Comment: Speci men Type: VENOUS BLOOD SPECIMENOrdering Facility: [facility] Address: [address] [place] [address] Performed By: #### 2 4344-4 ####[facility] LABORATORYCLIA [id number] [place] [address] [place] CO2 [Moles/Vol] 31 mmol/L High 25-29 [facility] Comment on above: Order Comment: Speci men Type: VENOUS BLOOD SPECIMENOrdering Facility: [facility] Address: [address] [place] [address] Performed By: #### 2 4344-4 ####[facility] LABORATORYCLIA [id number] [place] [address] [place] Glucose [Mass/Vol] 146 mg/dL High 60-105 [facility] Comment on above: Order Comment: Speci men Type: VENOUS BLOOD SPECIMENOrdering Facility: [facility] Address: [address] [place] [address] Performed By: #### 2 4344-4 ####[facility]ORATORYCLIA [id number] [place] [address] [place] HCO3 (Bld) [Moles/Vol] 33 mmol/L High 24-28 [facility] Comment on above: Order Comment: Speci men Type: VENOUS BLOOD SPECIMENOrdering Facility: [facility] Address: [address] [place] [address] Performed By: #### 2 4344-4 ####[facility]ORATORYCLIA [id number] [place] [address] [place] Hematocrit (Bld) [Volume fraction] 30.1 % Low 39.0-51.0 [facility] Comment on above: Order Comment: Speci men Type: VENOUS BLOOD SPECIMENOrdering Facility: [facility] Address: [address] [place] [address] Performed By: #### 2 4344-4 ####[facility]ORATORYCLIA [id number] [place] [address] [place] Hemoglobin (Bld) [Mass/Vol] 9.7 g/dL Low 13.0-17.0 [facility] Comment on above: Order Comment: Speci men Type: VENOUS BLOOD SPECIMENOrdering Facility: [facility] Address: [address] [address] Performed By: #### 2 4344-4 ####[facility] LABORATORYCLIA [id number] [address] [place] Methemoglobin (Bld) [Mass fraction] % Normal 0.0-1.5 [facility] Comment on above: Order Comment: Speci men Type: VENOUS BLOOD SPECIMENOrdering Facility: [facility] Address: [address] [address] Performed By: #### 2 4344-4 ####[facility] LABORATORYCLIA [id number] [address] O2 THERAPY NC = Nasal Cannula Normal [facility] Comment on above: Order Comment: Speci men Type: VENOUS BLOOD SPECIMENOrdering Facility: [facility] Address: [address] [address] Performed By: #### 2 4344-4 ####[facility]ORATORYCLIA [id number] [address] [place] Oxygen (BldV) [Partial pressure] 64 mm[Hg] High 35-45 [facility] Comment on above: Order Comment: Speci men Type: VENOUS BLOOD SPECIMENOrdering Facility: [facility] Address: [address] [address] Performed By: #### 2 4344-4 ####[facility]ORATORYCLIA [id number] [address] [place] Oxygen saturation in Blood 90 % High 60-85 [facility] Comment on above: Order Comment: Speci men Type: VENOUS BLOOD SPECIMENOrdering Facility: [facility] Address: [address] [address] Performed By: #### 2 4344-4 ####[facility] LABORATORYCLIA [id number] [address] [place] Oxyhemoglobin (BldV) [Mass fraction] 87 % High 60-85 [facility] Comment on above: Order Comment: Speci men Type: VENOUS BLOOD SPECIMENOrdering Facility: [facility] Address: [address] [place] [address] Performed By: #### 2 4344-4 ####[facility] LABORATORYCLIA [id number] [place] [address] [place] pH (BldV) 7.38 [pH] Normal 7.32-7.42 [facility] Comment on above: Order Comment: Speci men Type: VENOUS BLOOD SPECIMENOrdering Facility: [facility] Address: [address] [place] [address] Performed By: #### 2 4344-4 ####[facility]ORATORYCLIA [id number] [place] [address] [place] Potassium [Moles/Vol] 3.8 mmol/L Normal 3.5-5.0 [facility] Comment on above: Order Comment: Speci men Type: VENOUS BLOOD SPECIMENOrdering Facility: [facility] Address: [address] [place] [address] Performed By: #### 2 4344-4 ####[facility] LABORATORYCLIA [id number] [address] [place] Sodium [Moles/Vol] 145 mmol/L High 136-144 [facility] Comment on above: Order Comment: Speci men Type: VENOUS BLOOD SPECIMENOrdering Facility: [facility] Address: [address] [place] [address] Performed By: #### 2 4344-4 ####[facility] LABORATORYCLIA [id number] [place] [address] [place] Base excess Calc (BldV) [Moles/Vol] 8 mmol/L High 0-2 [facility] Comment on above: Order Comment: Speci men Type: VENOUS BLOOD SPECIMENOrdering Facility: [facility] Address: [address] [place] [address] Performed By: #### 2 4344-4 ####[facility] LABORATORYCLIA [id number] [address] Body temperature 100.22 [degF] Normal [facility] Comment on above: Order Comment: Speci men Type: VENOUS BLOOD SPECIMENOrdering Facility: [facility] Address: [address] [place] [address] Performed By: #### 2 4344-4 ####[facility] LABORATORYCLIA [id number] [address] OF [facility] CALCIUM IONIZED, PH CORRECTED 1.25 mmol/L Normal 1.08-1.30 [facility] Comment on above: Order Comment: Speci men Type: VENOUS BLOOD SPECIMENOrdering Facility: [facility] Address: [address] [place] [address] Performed By: #### 2 4344-4 ####[facility] LABORATORYCLIA [id number] [address] STATES [facility] Calcium.ionized (BldV) [Mass/Vol] 1.24 mmol/L Normal 1.08-1.30 [facility] Comment on above: Order Comment: Speci men Type: VENOUS BLOOD SPECIMENOrdering Facility: [facility] Address: [address] [place] [address] Performed By: #### 2 4344-4 ####[facility] LABORATORYCLIA [id number] [address] [place] Carboxyhemoglobin (BldV) [Mass fraction] 2.5 % High 0.0-2.0 [facility] Comment on above: Order Comment: Speci men Type: VENOUS BLOOD SPECIMENOrdering Facility: [facility] Address: [address] [place] [address] Result Comment: Carb oxyhemoglobin Reference Range for Smokers: 2.0-8.0% Performed By: #### 2 4344-4 ####[facility]ORATORYCLIA [id number] [address] [place] CO2 (BldV) [Partial pressure] 53 mm[Hg] Normal 42-55 [facility] Comment on above: Order Comment: Speci men Type: VENOUS BLOOD SPECIMENOrdering Facility: [facility] Address: [address] [place] [address] Performed By: #### 2 4344-4 ####[facility]ORATORYCLIA [id number] [address] [place] CO2 [Moles/Vol] 31 mmol/L High 25-29 [facility] Comment on above: Order Comment: Speci men Type: VENOUS BLOOD SPECIMENOrdering Facility: [facility] Address: [address] [place] [address] Performed By: #### 2 4344-4 ####[facility] LABORATORYCLIA [id number] [address] [place] CO2 adjusted to patient's actual temperature (BldV) [Partial pressure] 56 mmHg High 42-55 [facility] Comment on above: Order Comment: Speci men Type: VENOUS BLOOD SPECIMENOrdering Facility: [facility] Address: [address] [place] [address] Performed By: #### 2 4344-4 ####[facility] LABORATORYCLIA [id number] [place] [address] [place] Glucose [Mass/Vol] 131 mg/dL High 60-105 [facility] Comment on above: Order Comment: Speci men Type: VENOUS BLOOD SPECIMENOrdering Facility: [facility] Address: [address] [place] [address] Performed By: #### 2 4344-4 ####[facility]ORATORYCLIA [id number] [place] [address] [place] HCO3 (Bld) [Moles/Vol] 33 mmol/L High 24-28 [facility] Comment on above: Order Comment: Speci men Type: VENOUS BLOOD SPECIMENOrdering Facility: [facility] Address: [address] [place] [address] Performed By: #### 2 4344-4 ####[facility]ORATORYCLIA [id number] [place] [address] [place] Hematocrit (Bld) [Volume fraction] 30.8 % Low 39.0-51.0 [facility] Comment on above: Order Comment: Speci men Type: VENOUS BLOOD SPECIMENOrdering Facility: [facility] Address: [address] [address] Performed By: #### 2 4344-4 ####[facility]ORATORYCLIA [id number] [address] [place] Hemoglobin (Bld) [Mass/Vol] 10.0 g/dL Low 13.0-17.0 [facility] Comment on above: Order Comment: Speci men Type: VENOUS BLOOD SPECIMENOrdering Facility: [facility] Address: [address] [place] [address] Performed By: #### 2 4344-4 ####[facility] LABORATORYCLIA [id number] [address] [place] Methemoglobin (Bld) [Mass fraction] % Normal 0.0-1.5 [facility] Comment on above: Order Comment: Speci men Type: VENOUS BLOOD SPECIMENOrdering Facility: [facility] Address: [address] [place] [address] Performed By: #### 2 4344-4 ####[facility]ORATORYCLIA [id number] [address] [place] O2 THERAPY NC = Nasal Cannula Normal [facility] Comment on above: Order Comment: Speci men Type: VENOUS BLOOD SPECIMENOrdering Facility: [facility] Address: [address] [place] [address] Performed By: #### 2 4344-4 ####[facility]ATORYCLIA [id number] [address] [place] Oxygen (BldV) [Partial pressure] 58 mm[Hg] High 35-45 [facility] Comment on above: Order Comment: Speci men Type: VENOUS BLOOD SPECIMENOrdering Facility: [facility] Address: [address] [address] Performed By: #### 2 4344-4 ####[facility]ATORYCLIA [id number] [address] [place] Oxygen adjusted to patient's actual temperature (BldV) [Partial pressure] 61 mmHg High 35-45 [facility] Comment on above: Order Comment: Speci men Type: VENOUS BLOOD SPECIMENOrdering Facility: [facility] Address: [address] [place] [address] Performed By: #### 2 4344-4 ####[facility] LABORATORYCLIA [id number] [address] [place] Oxygen saturation in Blood 88 % High 60-85 [facility] Comment on above: Order Comment: Speci men Type: VENOUS BLOOD SPECIMENOrdering Facility: [facility] Address: [address] [place] [address] Performed By: #### 2 4344-4 ####[facility] LABORATORYCLIA [id number] [address] Oxyhemoglobin (BldV) [Mass fraction] 85 % Normal 60-85 [facility] Comment on above: Order Comment: Speci men Type: VENOUS BLOOD SPECIMENOrdering Facility: [facility] Address: [address] [place] [address] Performed By: #### 2 4344-4 ####[facility]ORATORYCLIA [id number] [address] [place] pH (BldV) 7.41 [pH] Normal 7.32-7.42 [facility] Comment on above: Order Comment: Speci men Type: VENOUS BLOOD SPECIMENOrdering Facility: [facility] Address: [address] [place] [address] Performed By: #### 2 4344-4 ####[facility] LABORATORYCLIA [id number] [address] STATES [facility] pH adjusted to patient's actual temperature (BldV) 7.40 Normal 7.32-7.42 [facility] Comment on above: Order Comment: Speci men Type: VENOUS BLOOD SPECIMENOrdering Facility: [facility] Address: [address] [address] Performed By: #### 2 4344-4 ####[facility] LABORATORYCLIA [id number] [place] [address] [place] Potassium [Moles/Vol] 4.0 mmol/L Normal 3.5-5.0 [facility] Comment on above: Order Comment: Speci men Type: VENOUS BLOOD SPECIMENOrdering Facility: [facility] Address: [address] [place] [address] Performed By: #### 2 4344-4 ####[facility] LABORATORYCLIA [id number] [place] [address] [place] Sodium [Moles/Vol] 146 mmol/L High 136-144 [facility] Comment on above: Order Comment: Speci men Type: VENOUS BLOOD SPECIMENOrdering Facility: [facility] Address: [address] [place] [address] Performed By: #### 2 4344-4 ####[facility] LABORATORYCLIA [id number] [place] [address] [place] Magnesium SerPl-mCncon 07-21 Magnesium [Mass/Vol] 2.5 mg/dL High 1.7-2.3 [facility] Comment on above: Order Comment: Speci men Type: BLOOD SPECIMENOrdering Facility: [facility] Address: [address] [place] [address] Performed By: #### 1 9123-9, 2777-1, 78279-8 ####[facility] LABORATORYCLIA [id number] [place] [address] [place] NURSING PROGon 07-21-2021 NURSING PROG Normal [facility] Phosphate SerPl-mCncon 07-21 Phosphate [Mass/Vol] 3.7 mg/dL Normal 2.7-4.8 [facility] Comment on above: Order Comment: Speci men Type: BLOOD SPECIMENOrdering Facility: [facility] Address: [address] [place] [address] Performed By: #### 1 9123-9, 2777-1, 65005-6 ####[facility] LABORATORYCLIA [id number] [address] OF [facility] THERAPY NTon 07-21-2021 THERAPY NT Normal [facility] XR CHEST 1V FRONTALon 2021 XR CHEST 1V FRONTAL Normal [facility] aPTT PPPon 07-21-2021 aPTT Coag (PPP) [Time] 53.0 s High 23.0-32.4 [facility] Comment on above: Order Comment: Speci men Type: BLOOD SPECIMENOrdering Facility: [facility] Address: [address] [place] [address] Performed By: #### 1 4979-9 ####[facility] LABORATORYCLIA [id number] [address] [place] ALLIED HEALTHon 07-20-2021 ALLIED HEALTH Normal [facility] Basic metabolic 2000 panelon 07-20-2021 Anion gap [Moles/Vol] 8 mmol/L Low 9-18 [facility] Comment on above: Order Comment: Speci men Type: BLOOD SPECIMENOrdering Facility: [facility] Address: [address] [place] [address] Performed By: #### 2 4321-2, , 2776-05 ####[facility] LABORATORYCLIA [id number] [place] [address] [place] [facility] Calcium [Mass/Vol] 9.7 mg/dL Normal 8.5-10.2 [facility] Comment on above: Order Comment: Speci men Type: BLOOD SPECIMENOrdering Facility: [facility] Address: [address] [place] [address] Performed By: #### 2 4321-2, , 2777 ####[facility] LABORATORYCLIA [id number] [place] [address] [place] Chloride [Moles/Vol] 104 mmol/L Normal 97-105 [facility] Comment on above: Order Comment: Speci men Type: BLOOD SPECIMENOrdering Facility: [facility] Address: [address] [place] [address] Performed By: #### 2 4321-2, , 2776-05 ####[facility]CL[facility] [id number] [address] STATES OF [facility] CO2 [Moles/Vol] 34 mmol/L High 22-30 [facility] Comment on above: Order Comment: Speci men Type: BLOOD SPECIMENOrdering Facility: [facility] Address: [address] [place] [address] Performed By: #### 2 4321-2, , 2776-05 ####[facility]ENTERCLIA [id number] [address] Creatinine [Mass/Vol] 0.76 mg/dL Normal 0.73-1.22 [facility] Comment on above: Order Comment: Speci men Type: BLOOD SPECIMENOrdering Facility: [facility] Address: [address] [place] [address] Performed By: #### 2 4321-2, , 2776-05 ####[facility] POINTIA [id number] [address] ESTIMATED GLOMERULAR FILTRATION RATE 97 mL/min/1.73m??? Normal >=60 [facility] Comment on above: Order Comment: Speci men Type: BLOOD SPECIMENOrdering Facility: [facility] Address: [address] [place] [address] Result Comment: Luzmaria mated Glomerular Filtration Rate [...] , 2776-05 ####[facility]ATORYCLIA [id number] [place] [address] [place] Glucose [Mass/Vol] 123 mg/dL High 74-99 [facility] Comment on above: Order Comment: Speci men Type: BLOOD SPECIMENOrdering Facility: [facility] Address: [address] [place], [place] [address] Result Comment: The [place] Diabetes Association (ADA) provides guidance for cutoff [...] Standards of Medical Care in Diabetes 2016, [place] [employer] Association. Diabetes Care. 2016.39(Suppl 1). Performed By: #### 2 4321-2, , 2776-05 ####[facility]ORATORYCLIA [id number] [place] [address] [place] Potassium [Moles/Vol] 4.4 mmol/L Normal 3.7-5.1 [facility] Comment on above: Order Comment: Shira francia Type: BLOOD SPECIMENOrdering Facility: [facility] Address: [address] [place], [place] [address] Performed By: #### 2 4321-2, , 2776-05 ####[facility]ORATORYCLIA [id number] [place] [address] [place] Sodium [Moles/Vol] 146 mmol/L High 136-144 [facility] Comment on above: Order Comment: Speci men Type: BLOOD SPECIMENOrdering Facility: [facility] Address: [address] [place], [place] [address] Performed By: #### 2 4321-2, , 2776-05 ####[facility]ATORYCLIA [id number] [place] [address] [place] Urea nitrogen [Mass/Vol] 38 mg/dL High 9-24 [facility] Comment on above: Order Comment: Speci men Type: BLOOD SPECIMENOrdering Facility: [facility] Address: [address] [place] [address] Performed By: #### 2 4321-2, 57363-8, 2777-1 ####[facility]ATORYCLIA [id number] [address] [place] CASE MANAGEMon 07-20-2021 CASE MANAGEM Normal [facility] CBC W Auto Differential pane l (Bld)on 07-20-2021 Basophils (Bld) [#/Vol] 0.05 10*3/uL Normal <0.11 [facility] Comment on above: Order Comment: Speci men Type: BLOOD SPECIMENOrdering Facility: [facility] Address: [address] [place] [address] Performed By: #### 5 7021-8 ####[facility]ATORYCLIA [id number] [place] [address] [place] Basophils/100 WBC (Bld) 0.5 % Normal [facility] Comment on above: Order Comment: Speci men Type: BLOOD SPECIMENOrdering Facility: [facility] Address: [address] [place] [address] Performed By: #### 5 7021-8 ####[facility]ATORYCLIA [id number] [address] [place] Differential cell count method Nom (Bld) Auto Normal [facility] Comment on above: Order Comment: Speci men Type: BLOOD SPECIMENOrdering Facility: [facility] Address: [address] [place] [address] Performed By: #### 5 7021-8 ####[facility]ATORYCLIA [id number] [place] [address] [place] Eosinophils (Bld) [#/Vol] 0.43 10*3/uL Normal <0.46 [facility] Comment on above: Order Comment: Speci men Type: BLOOD SPECIMENOrdering Facility: [facility] Address: [address] [place] [address] Performed By: #### 5 7021-8 ####[facility]ATORYCLIA [id number] [address] Eosinophils/100 WBC (Bld) 4.1 % Normal [facility] Comment on above: Order Comment: Speci men Type: BLOOD SPECIMENOrdering Facility: [facility] Address: [address] [place] [address] Performed By: #### 5 7021-8 ####[facility]ATORYCLIA [id number] [address] Erythrocyte distribution width (RBC) [Ratio] 16.7 % High 11.5-15.0 [facility] Comment on above: Order Comment: Speci men Type: BLOOD SPECIMENOrdering Facility: [facility] Address: [address] [place] [address] Performed By: #### 5 7021-8 ####[facility]ATORYCLIA [id number] [address] Hematocrit (Bld) [Volume fraction] 33.0 % Low 39.0-51.0 [facility] Comment on above: Order Comment: Speci men Type: BLOOD SPECIMENOrdering Facility: [facility] Address: [address] [place] [address] Performed By: #### 5 7021-8 ####[facility]ATORYCLIA [id number] [address] Hemoglobin (Bld) [Mass/Vol] 9.7 g/dL Low 13.0-17.0 [facility] Comment on above: Order Comment: Speci men Type: BLOOD SPECIMENOrdering Facility: [facility] Address: [address] [place] [address] Performed By: #### 5 7021-8 ####[facility]ATORYCLIA [id number] [address] IMMATURE GRAN % 0.4 % Normal [facility] Comment on above: Order Comment: Speci men Type: BLOOD SPECIMENOrdering Facility: [facility] Address: [address] [place] [address] Performed By: #### 5 7021-8 ####[facility]ATORYCLIA [id number] [address] IMMATURE GRAN ABS 0.04 k/uL Normal <0.10 [facility] Comment on above: Order Comment: Speci men Type: BLOOD SPECIMENOrdering Facility: [facility] Address: [address] [place] [address] Performed By: #### 5 7021-8 ####[facility]ATORYCLIA [id number] [address] Lymphocytes (Bld) [#/Vol] 1.99 10*3/uL Normal 1.00-4.00 [facility] Comment on above: Order Comment: Speci men Type: BLOOD SPECIMENOrdering Facility: [facility] Address: [address] [place] [address] Performed By: #### 5 7021-8 ####[facility]ATORYCLIA [id number] [address] Lymphocytes/100 WBC (Bld) 18.8 % Normal [facility] Comment on above: Order Comment: Speci men Type: BLOOD SPECIMENOrdering Facility: [facility] Address: [address] [place] [address] Performed By: #### 5 7021-8 ####[facility]ATORYCLIA [id number] [address] [place] MCH (RBC) [Entitic mass] 27.8 pg Normal 26.0-34.0 [facility] Comment on above: Order Comment: Speci men Type: BLOOD SPECIMENOrdering Facility: [facility] Address: [address] [place] [address] Performed By: #### 5 7021-8 ####[facility]ORATORYCLIA [id number] [address] STATES OF [facility] MCHC (RBC) [Mass/Vol] 29.4 g/dL Low 30.5-36.0 [facility] Comment on above: Order Comment: Speci men Type: BLOOD SPECIMENOrdering Facility: [facility] Address: [address] [place] [address] Performed By: #### 5 7021-8 ####[facility]ORATORYCLIA [id number] [address] MCV (RBC) [Entitic vol] 94.6 fL Normal 80.0-100.0 [facility] Comment on above: Order Comment: Speci men Type: BLOOD SPECIMENOrdering Facility: [facility] Address: [address] [place] [address] Performed By: #### 5 7021-8 ####[facility]ATORYCLIA [id number] [address] [place] Monocytes (Bld) [#/Vol] 0.82 10*3/uL Normal <0.87 [facility] Comment on above: Order Comment: Speci men Type: BLOOD SPECIMENOrdering Facility: [facility] Address: [address] [place] [address] Performed By: #### 5 7021-8 ####[facility]ATORYCLIA [id number] [address] Monocytes/100 WBC (Bld) 7.8 % Normal [facility] Comment on above: Order Comment: Speci men Type: BLOOD SPECIMENOrdering Facility: [facility] Address: [address] [place] [address] Performed By: #### 5 7021-8 ####[facility]ATORYCLIA [id number] [address] [place] Neutrophils (Bld) [#/Vol] 7.23 10*3/uL Normal 1.45-7.50 [facility] Comment on above: Order Comment: Speci men Type: BLOOD SPECIMENOrdering Facility: [facility] Address: [address] [place] [place] [address] Performed By: #### 5 7021-8 ####[facility]ATORYCLIA [id number] [address] Neutrophils/100 WBC (Bld) 68.4 % Normal [facility] Comment on above: Order Comment: Speci men Type: BLOOD SPECIMENOrdering Facility: [facility] Address: [address] [place] [address] Performed By: #### 5 7021-8 ####[facility]ATORYCLIA [id number] [address] [place] Nucleated RBC (Bld) [#/Vol] 10*3/uL Normal <0.01 [facility] Comment on above: Order Comment: Speci men Type: BLOOD SPECIMENOrdering Facility: [facility] Address: [address] [place] [address] Performed By: #### 5 7021-8 ####[facility]ATORYCLIA [id number] [address] [place] Nucleated RBC/100 WBC (Bld) [Ratio] 0.0 /100 WBC Normal [facility] Comment on above: Order Comment: Speci men Type: BLOOD SPECIMENOrdering Facility: [facility] Address: [address] [place] [address] Performed By: #### 5 7021-8 ####[facility]ATORYCLIA [id number] [address] [place] Platelet mean volume (Bld) [Entitic vol] 10.5 fL Normal 9.0-12.7 [facility] Comment on above: Order Comment: Speci men Type: BLOOD SPECIMENOrdering Facility: [facility] Address: [address] [place] [address] Performed By: #### 5 7021-8 ####[facility]ATORYCLIA [id number] [place] [address] [place] Platelets (Bld) [#/Vol] 400 10*3/uL Normal 150-400 [facility] Comment on above: Order Comment: Speci men Type: BLOOD SPECIMENOrdering Facility: [facility] Address: [address] [place] [address] Performed By: #### 5 7021-8 ####[facility]ATORYCLIA [id number] [address] [place] RBC (Bld) [#/Vol] 3.49 10*6/uL Low 4.20-6.00 [facility] Comment on above: Order Comment: Speci men Type: BLOOD SPECIMENOrdering Facility: [facility] Address: [address] [place] [address] Performed By: #### 5 7021-8 ####[facility]ATORYCLIA [id number] [address] WBC (Bld) [#/Vol] 10.56 10*3/uL Normal 3.70-11.00 [facility] Comment on above: Order Comment: Speci men Type: BLOOD SPECIMENOrdering Facility: [facility] Address: [address] [place] [address] Performed By: #### 5 7021-8 ####[facility]ATORYCLIA [id number] [address] CONSULT PROGon 07-20-2021 CONSULT PROG Normal [facility] CT BRAIN WO IVCONon 07-21-[address] BRAIN WO IVCON Normal [facility] Magnesium SerPl-mCncon 07-20 Magnesium [Mass/Vol] 2.4 mg/dL High 1.7-2.3 [facility] Comment on above: Order Comment: Speci men Type: BLOOD SPECIMENOrdering Facility: [facility] Address: [address] [place] [address] Performed By: #### 2 4321-2, 90485-0, 2777-1 ####[facility]ATORYCLIA [id number] [address] [place] NUTRITIONon 07-20-2021 NUTRITION Normal [facility] Phosphate SerPl-mCncon 07-20 Phosphate [Mass/Vol] 4.1 mg/dL Normal 2.7-4.8 [facility] Comment on above: Order Comment: Speci men Type: BLOOD SPECIMENOrdering Facility: [facility] Address: [address] [place] [address] Performed By: #### 2 4321-2, 64031-7, 2777-1 ####[facility]ATORYCLIA [id number] [place] [address] [place] aPTT PPPon 07-20-2021 aPTT Coag (PPP) [Time] 53.6 s High 23.0-32.4 [facility] Comment on above: Order Comment: Speci men Type: BLOOD SPECIMENOrdering Facility: [facility] Address: [address] [place] [address] Performed By: #### 1 4979-9 ####[facility]ORATORYCLIA [id number] [place] [address] [place] Bacteria CSF Culton 07-20-19 22 Bacteria identified Cx Nom (CSF) CULTURE, CSF: No growth 14 days GRAM STAIN: No organisms seen No Polymorphonuclear Leukocytes Rare Mononuclear cells Gram stain performed on cytospun specimen. Normal [facility] Comment on above: Performed By: #### 6 06-4 ####[facility]ATORYCLIA [id number] [place] [address] [place] CONSULT PROGon 07-19-2021 CONSULT PROG Normal [facility] CSF MANUAL DIFFon 07-19-2021 DIF TTL, CSF 100 cells counted Normal [facility] Comment on above: Order Comment: Speci men Type: CEREBROSPINAL FLUIDOrdering Facility: [facility] Address: [address] [place] [address] Performed By: #### L [id number], 21283-9, [id number] ####[facility]ATORYCLIA [id number] [place] [address] [place] EOSIN%, CSF 1 % Normal [facility] Comment on above: Order Comment: Speci men Type: CEREBROSPINAL FLUIDOrdering Facility: [facility] Address: [address] [address] Performed By: #### L [id number], 27979-2, [id number] ####[facility]ATORYCLIA [id number] [place] [address] [place] LYMPH%, CSF 67 % Normal 50-90 [facility] Comment on above: Order Comment: Speci men Type: CEREBROSPINAL FLUIDOrdering Facility: [facility] Address: [address] [place] [address] Performed By: #### L [id number], 03994-2, [id number] ####[facility]ATORYCLIA [id number] [address] [place] MACRO%, CSF 1 % High <1 [facility] Comment on above: Order Comment: Speci men Type: CEREBROSPINAL FLUIDOrdering Facility: [facility] Address: [address] [place] [address] Performed By: #### L [id number], 29630-9, [id number] ####[facility]ATORYCLIA [id number] [address] [place] MONO%, CSF 18 % Normal 10-50 [facility] Comment on above: Order Comment: Speci men Type: CEREBROSPINAL FLUIDOrdering Facility: [facility] Address: [address] [address] Performed By: #### L [id number], 22040-2, [id number] ####[facility] [facility]ATORYCLIA [id number] [address] [place] NEUT%, CSF 11 % High 0-3 [facility] Comment on above: Order Comment: Speci men Type: CEREBROSPINAL FLUIDOrdering Facility: [facility] Address: [facility] [place] [address] Performed By: #### L [id number], 49196-3, [id number] ####[facility] [facility]ATORYCLIA [id number] [address] [place] OTHER CL%, CSF 2 % Normal [facility] Comment on above: Order Comment: Speci men Type: CEREBROSPINAL FLUIDOrdering Facility: [facility] Address: [address] [place] [address] Result Comment: Path review to follow. Performed By: #### L [id number], 73777-8, [id number] ####[facility]ATORYCLIA [id number] [address] [place] CSF PATHOLOGIST INTERP (LAB REFLEX ORDER-NO BILL)on 07-19-2021 CSF STAFF REVIEW Normal [facility] Comment on above: Order Comment: Speci men Type: CEREBROSPINAL FLUIDOrdering Facility: [facility] Address: [address] [place] [address] Performed By: #### L [id number], 29678-2, [id number] ####[facility]ORATORYCLIA [id number] [address] Pathologist name Reviewed by Wing Cummings MD [facility] Comment on above: Order Comment: Speci men Type: CEREBROSPINAL FLUIDOrdering Facility: [facility] Address: [address] [place] [address] Performed By: #### L [id number], 32282-4, [id number] ####[facility]ATORYCLIA [id number] [address] Cell count panel (CSF)on Clarity (CSF) Clear Normal Clear [facility] Comment on above: Order Comment: Speci men Type: CEREBROSPINAL FLUIDOrdering Facility: [facility] Address: [address] [place] [address] Performed By: #### L [id number], 49776-1, [id number] ####[facility]ATORYCLIA [id number] [address] Clarity (Unsp spec) Not Indicated Normal Clear [facility] Comment on above: Order Comment: Speci men Type: CEREBROSPINAL FLUIDOrdering Facility: [facility] Address: [address] [address] Performed By: #### L [id number], 20004-8, [id number] ####[facility]ATORYCLIA [id number] [address] Color (CSF) Colorless Normal Colorless [facility] Comment on above: Order Comment: Speci men Type: CEREBROSPINAL FLUIDOrdering Facility: [facility] Address: [address] [place] [address] Performed By: #### L [id number], 78617-7, [id number] ####[facility]ATORYCLIA [id number] [address] OF [facility] Color (Spun CSF) Not Indicated Normal Colorless [facility] Comment on above: Order Comment: Speci men Type: CEREBROSPINAL FLUIDOrdering Facility: [facility] Address: [address] [place] [address] Performed By: #### L [id number], 28763-7, [id number] ####[facility]ATORYCLIA [id number] [address] CSF T[employer] Normal [facility] Comment on above: Order Comment: Speci men Type: CEREBROSPINAL FLUIDOrdering Facility: [facility] Address: [address] [place] [address] Performed By: #### L [id number], 42873-5, [id number] ####[facility]ORATORYCLIA [id number] [address] STATES OF [facility] RBC Manual cnt (CSF) [#/Vol] 0 cells/uL Normal 0-5 [facility] Comment on above: Order Comment: Speci men Type: CEREBROSPINAL FLUIDOrdering Facility: [facility] Address: [address] [place] [address] Performed By: #### L [id number], 28330-3, [id number] ####[facility] [facility]ATORYCLIA [id number] [address] OF [facility] WBC Manual cnt (CSF) [#/Vol] 2 cells/uL Normal 0-5 [facility] Comment on above: Order Comment: Speci men Type: CEREBROSPINAL FLUIDOrdering Facility: [facility] Address: [address] [place] [address] Performed By: #### L [id number], 56126-0, [id number] ####[facility]ATORYCLIA [id number] [address] [place] Glucose CSF-[facility] Glucose (CSF) [Mass/Vol] 69 mg/dL Normal 40-70 [facility] Comment on above: Order Comment: Speci men Type: CEREBROSPINAL FLUIDOrdering Facility: [facility] Address: [address] [place] [address] Result Comment: Lumb ar CSF glucose values of healthy patients are approximately 60% of the plasma values and must always be compared with a concurrently measured plasma value for adequate clinical interpretation.References: 1. Glucose HK (GLUC3) [package insert V 12.0 Israeli]. [employer], [place], [place]. September 2015. 2. Michelle Moore, Loki HGarfield (2015). Chapter 7: Glucose and Lactate. F. Irina rose al.(eds.), Cerebrospinal Fluid in Clinical Neurology. Story: [employer]. Performed By: #### 2 342-4, 2880-3 ####[facility]ATORYCLIA [id number] [address] [place] NURSING PROGon 07-19-2021 NURSING PROG Normal [facility] NURSING PROG Normal [facility] Prot CSF-ncon 07-19-2021 Protein (CSF) [Mass/Vol] 51 mg/dL High 15-45 [facility] Comment on above: Order Comment: Speci men Type: CEREBROSPINAL FLUIDOrdering Facility: [facility] Address: [address] [place] [address] Performed By: #### 2 342-4, 2880-3 ####[facility]ATORYCLIA [id number] [address] [place] THERAPY NTon 07-19-2021 THERAPY NT Normal [facility] Urinalysis complete panel (U )on 07-19-2021 Bilirubin Ql (U) Negative Normal Negative [facility] Comment on above: Order Comment: Speci men Type: URINE SPECIMENOrdering Facility: [facility] Address: [address] [place] [address] Performed By: #### 2 4356-8 ####[facility]ORATORYCLIA [id number] [address] Clarity (Unsp spec) Clear Normal Clear [facility] Comment on above: Order Comment: Speci men Type: URINE SPECIMENOrdering Facility: [facility] Address: [address] [place] [address] Performed By: #### 2 4356-8 ####[facility]ORATORYCLIA [id number] [address] Color (U) Colorless Normal yellow [facility] Comment on above: Order Comment: Speci men Type: URINE SPECIMENOrdering Facility: [facility] Address: [address] [place] [address] Performed By: #### 2 4356-8 ####[facility]ATORYCLIA [id number] [address] Glucose Test strip (U) [Mass/Vol] Negative Normal Negative [facility] Comment on above: Order Comment: Speci men Type: URINE SPECIMENOrdering Facility: [facility] Address: [address] [place] [address] Performed By: #### 2 4356-8 ####[facility]ATORYCLIA [id number] [address] Hemoglobin Ql (U) Trace Abnormal Negative [facility] Comment on above: Order Comment: Speci men Type: URINE SPECIMENOrdering Facility: [facility] Address: [address] [place] [address] Performed By: #### 2 4356-8 ####[facility]ORATORYCLIA [id number] [address] [place] Hyaline casts (Urine sed) [#/Area] 1-3 /LPF Abnormal 0 /LPF [facility] Comment on above: Order Comment: Speci men Type: URINE SPECIMENOrdering Facility: [facility] Address: [address] [place] [address] Performed By: #### 2 4356-8 ####[facility] LABORATORYCLIA [id number] [address] Ketones Ql (U) Negative Normal Negative [facility] Comment on above: Order Comment: Speci men Type: URINE SPECIMENOrdering Facility: [facility] Address: [address] [place] [address] Performed By: #### 2 4356-8 ####[facility] LABORATORYCLIA [id number] [address] Leukocyte esterase Test strip Ql (U) Negative Normal Negative [facility] Comment on above: Order Comment: Speci men Type: URINE SPECIMENOrdering Facility: [facility] Address: [address] [place] [address] Performed By: #### 2 4356-8 ####[facility] LABORATORYCLIA [id number] [address] STATES [facility] Nitrite Ql (U) Negative Normal Negative [facility] Comment on above: Order Comment: Speci men Type: URINE SPECIMENOrdering Facility: [facility] Address: [address] [place] [address] Performed By: #### 2 4356-8 ####[facility] LABORATORYCLIA [id number] [address] [place] pH (U) 7.0 [pH] Normal 5.0-8.0 [facility] Comment on above: Order Comment: Speci men Type: URINE SPECIMENOrdering Facility: [facility] Address: [address] [place] [address] Performed By: #### 2 4356-8 ####[facility] LABORATORYCLIA [id number] [address] [place] Protein (U) [Mass/Vol] Negative Normal Negative [facility] Comment on above: Order Comment: Speci men Type: URINE SPECIMENOrdering Facility: [facility] Address: [address] [place] [address] Performed By: #### 2 4356-8 ####[facility] LABORATORYCLIA [id number] [address] [place] RBC LM.HPF (Urine sed) [#/Area] 6-10 /HPF Abnormal 0-3 /HPF [facility] Comment on above: Order Comment: Speci men Type: URINE SPECIMENOrdering Facility: [facility] Address: [address] [place] [address] Performed By: #### 2 4356-8 ####[facility] LABORATORYCLIA [id number] [address] Specific gravity (U) [Rel density] 1.008 Normal 1.005-1.030 [facility] Comment on above: Order Comment: Speci men Type: URINE SPECIMENOrdering Facility: [facility] Address: [address] [place] [address] Performed By: #### 2 4356-8 ####[facility] LABORATORYCLIA [id number] [address] Urobilinogen Ql (U) Normal Normal Negative [facility] Comment on above: Order Comment: Speci men Type: URINE SPECIMENOrdering Facility: [facility] Address: [address] [place] [address] Performed By: #### 2 4356-8 ####[facility] LABORATORYCLIA [id number] [address] [place] WBC LM.HPF (Urine sed) [#/Area] 0-5 /HPF Normal 0-5 /HPF [facility] Comment on above: Order Comment: Speci men Type: URINE SPECIMENOrdering Facility: [facility] Address: [address] [place] [address] Performed By: #### 2 4356-8 ####[facility] LABORATORYCLIA [id number] [address] STATES OF [facility] Vancomycin random [Mass/Vol] on 07-19-2021 Vancomycin [Mass/Vol] 13.9 ug/mL Normal 10.0-20.0 [facility] Comment on above: Order Comment: Speci men Type: BLOOD SPECIMENOrdering Facility: [facility] Address: [address] [place] [address] Result Comment: Refe rence ranges and high/low indicator flags are provided as general guidelines only. The treating physician must determine appropriate target levels/dosing based on the specific clinical situation. Performed By: #### 4 091-5 ####[facility] LABORATORYCLIA [id number] [address] STATES OF [facility] aPTT PPPon 07-19-2021 aPTT Coag (PPP) [Time] 53.9 s High 23.0-32.4 [facility] Comment on above: Order Comment: Speci men Type: BLOOD SPECIMENOrdering Facility: [facility] Address: [address] [place] [address] Performed By: #### 1 4979-9 ####[facility]ENTERCLIA [id number] [place] [address] [place] Basic metabolic 2000 panelon 07-18-2021 Anion gap [Moles/Vol] 6 mmol/L Low 9-18 [facility] Comment on above: Order Comment: Speci men Type: BLOOD SPECIMENOrdering Facility: [facility] Address: [address] [place] [address] Performed By: #### 2 4321-2, 77484-1, 2777-1 ####[facility] LABORATORYCLIA [id number] [address] [place] Calcium [Mass/Vol] 9.4 mg/dL Normal 8.5-10.2 [facility] Comment on above: Order Comment: Speci men Type: BLOOD SPECIMENOrdering Facility: [facility] Address: [address] [place] [address] Performed By: #### 2 4321-2, , 2776-05 ####[facility] LABORATORYCLIA [id number] [place] [id number] [place] Chloride [Moles/Vol] 103 mmol/L Normal 97-105 [facility] Comment on above: Order Comment: Speci men Type: BLOOD SPECIMENOrdering Facility: [facility] Address: [address] [place] [address] Performed By: #### 2 4321-2, , 2776-05 ####[facility] LABORATORYCLIA [id number] [place] [address] [place] CO2 [Moles/Vol] 34 mmol/L High 22-30 [facility] Comment on above: Order Comment: Speci men Type: BLOOD SPECIMENOrdering Facility: [facility] Address: [address] [place] [address] Performed By: #### 2 4321-2, , 2776-05 ####[facility] LABORATORYCLIA [id number] [address] STATES OF [facility] Creatinine [Mass/Vol] 0.75 mg/dL Normal 0.73-1.22 [facility] Comment on above: Order Comment: Speci men Type: BLOOD SPECIMENOrdering Facility: [facility] Address: [address] [place] [address] Performed By: #### 2 4321-2, , 2776-05 ####[facility] LABORATORYCLIA [id number] [address] ESTIMATED GLOMERULAR FILTRATION RATE 98 mL/min/1.73m??? Normal >=60 [facility] Comment on above: Order Comment: Speci men Type: BLOOD SPECIMENOrdering Facility: [facility] Address: [address] [place] [address] Result Comment: Luzmaria mated Glomerular Filtration Rate [...] , 2776-05 ####[facility] LABORATORYCLIA [id number] [place] [address] [place] Glucose [Mass/Vol] 125 mg/dL High 74-99 [facility] Comment on above: Order Comment: Shira feldman Type: BLOOD SPECIMENOrdering Facility: [facility] Address: [address] [place] [id number] Result Comment: The [place] Diabetes Association (ADA) provides guidance for cutoff [...] Standards of Medical Care in Diabetes 2016, [place] [employer]. Diabetes Care. 2016.39(Suppl 1). Performed By: #### 2 4321-2, , 2776-05 ####[facility] LABORATORYCLIA [id number] [place] [address] [place] Potassium [Moles/Vol] 4.4 mmol/L Normal 3.7-5.1 [facility] Comment on above: Order Comment: Shira feldman Type: BLOOD SPECIMENOrdering Facility: [facility] Address: [address] [place] [address] Performed By: #### 2 4321-2, , 2776-05 ####[facility] LABORATORYCLIA [id number] [place] [address] [place] Sodium [Moles/Vol] 143 mmol/L Normal 136-144 [facility] Comment on above: Order Comment: Speci men Type: BLOOD SPECIMENOrdering Facility: [facility] Address: [address] [place] [address] Performed By: #### 2 4321-2, , 2776-05 ####[facility] LABORATORYCLIA [id number] [address] STATES [facility] Urea nitrogen [Mass/Vol] 33 mg/dL High 9-24 [facility] Comment on above: Order Comment: Speci men Type: BLOOD SPECIMENOrdering Facility: [facility] Address: [address] [place] [address] Performed By: #### 2 4321-2, , 2776-05 ####[facility] LABORATORYCLIA [id number] [address] [place] CASE MANAGEMon 07-18-2021 CASE MANAGEM Normal [facility] CBC W Auto Differential pane l (Bld)on 07-18-2021 Basophils (Bld) [#/Vol] 0.05 10*3/uL Normal <0.11 [facility] Comment on above: Order Comment: Speci men Type: BLOOD SPECIMENOrdering Facility: [facility] Address: [address] [place] [address] Performed By: #### 5 7021-8 ####[facility] LABORATORYCLIA [id number] [address] STATES [facility] Basophils/100 WBC (Bld) 0.5 % Normal [facility] Comment on above: Order Comment: Speci men Type: BLOOD SPECIMENOrdering Facility: [facility] Address: [address] [place] [address] Performed By: #### 5 7021-8 ####[facility] LABORATORYCLIA [id number] [address] STATES OF [facility] Differential cell count method Nom (Bld) Auto Normal [facility] Comment on above: Order Comment: Speci men Type: BLOOD SPECIMENOrdering Facility: [facility] Address: [address] [place] [address] Performed By: #### 5 7021-8 ####[facility] LABORATORYCLIA [id number] [address] [place] Eosinophils (Bld) [#/Vol] 0.44 10*3/uL Normal <0.46 [facility] Comment on above: Order Comment: Speci men Type: BLOOD SPECIMENOrdering Facility: [facility] Address: [address] [place] [address] Performed By: #### 5 7021-8 ####[facility] LABORATORYCLIA [id number] [address] Eosinophils/100 WBC (Bld) 4.3 % Normal [facility] Comment on above: Order Comment: Speci men Type: BLOOD SPECIMENOrdering Facility: [facility] Address: [address] [place] [address] Performed By: #### 5 7021-8 ####[facility] LABORATORYCLIA [id number] [address] Erythrocyte distribution width (RBC) [Ratio] 16.6 % High 11.5-15.0 [facility] Comment on above: Order Comment: Speci men Type: BLOOD SPECIMENOrdering Facility: [facility] Address: [address] [place] [address] Performed By: #### 5 7021-8 ####[facility] LABORATORYCLIA [id number] [address] Hematocrit (Bld) [Volume fraction] 32.2 % Low 39.0-51.0 [facility] Comment on above: Order Comment: Speci men Type: BLOOD SPECIMENOrdering Facility: [facility] Address: [address] [place] [address] Performed By: #### 5 7021-8 ####[facility] LABORATORYCLIA [id number] [address] [place] Hemoglobin (Bld) [Mass/Vol] 9.5 g/dL Low 13.0-17.0 [facility] Comment on above: Order Comment: Speci men Type: BLOOD SPECIMENOrdering Facility: [facility] Address: [address] [place] [address] Performed By: #### 5 7021-8 ####[facility] LABORATORYCLIA [id number] [address] IMMATURE GRAN % 0.4 % Normal [facility] Comment on above: Order Comment: Speci men Type: BLOOD SPECIMENOrdering Facility: [facility] Address: [address] [place] [address] Performed By: #### 5 7021-8 ####[facility] LABORATORYCLIA [id number] [address] IMMATURE GRAN ABS 0.04 k/uL Normal <0.10 [facility] Comment on above: Order Comment: Speci men Type: BLOOD SPECIMENOrdering Facility: [facility] Address: [address] [place] [address] Performed By: #### 5 7021-8 ####[facility] LABORATORYCLIA [id number] [address] Lymphocytes (Bld) [#/Vol] 1.71 10*3/uL Normal 1.00-4.00 [facility] Comment on above: Order Comment: Speci men Type: BLOOD SPECIMENOrdering Facility: [facility] Address: [address] [place] [address] Performed By: #### 5 7021-8 ####[facility] LABORATORYCLIA [id number] [address] Lymphocytes/100 WBC (Bld) 16.9 % Normal [facility] Comment on above: Order Comment: Speci men Type: BLOOD SPECIMENOrdering Facility: [facility] Address: [address] [place] [address] Performed By: #### 5 7021-8 ####[facility] LABORATORYCLIA [id number] [address] MCH (RBC) [Entitic mass] 27.9 pg Normal 26.0-34.0 [facility] Comment on above: Order Comment: Speci men Type: BLOOD SPECIMENOrdering Facility: [facility] Address: [address] [place] [address] Performed By: #### 5 7021-8 ####[facility] LABORATORYCLIA [id number] [address] STATES [facility] MCHC (RBC) [Mass/Vol] 29.5 g/dL Low 30.5-36.0 [facility] Comment on above: Order Comment: Speci men Type: BLOOD SPECIMENOrdering Facility: [facility] Address: [address] [place] [address] Performed By: #### 5 7021-8 ####[facility] LABORATORYCLIA [id number] [address] STATES OF [facility] MCV (RBC) [Entitic vol] 94.7 fL Normal 80.0-100.0 [facility] Comment on above: Order Comment: Speci men Type: BLOOD SPECIMENOrdering Facility: [facility] Address: [address] [place] [address] Performed By: #### 5 7021-8 ####[facility] LABORATORYCLIA [id number] [address] Monocytes (Bld) [#/Vol] 0.69 10*3/uL Normal <0.87 [facility] Comment on above: Order Comment: Speci men Type: BLOOD SPECIMENOrdering Facility: [facility] Address: [address] [place] [address] Performed By: #### 5 7021-8 ####[facility] LABORATORYCLIA [id number] [address] Monocytes/100 WBC (Bld) 6.8 % Normal [facility] Comment on above: Order Comment: Speci men Type: BLOOD SPECIMENOrdering Facility: [facility] Address: [address] [place] [address] Performed By: #### 5 7021-8 ####[facility] LABORATORYCLIA [id number] [place] [address] [place] Neutrophils (Bld) [#/Vol] 7.19 10*3/uL Normal 1.45-7.50 [facility] Comment on above: Order Comment: Speci men Type: BLOOD SPECIMENOrdering Facility: [facility] Address: [address] [place] [address] Performed By: #### 5 7021-8 ####[facility] LABORATORYCLIA [id number] [address] [place] Neutrophils/100 WBC (Bld) 71.1 % Normal [facility] Comment on above: Order Comment: Speci men Type: BLOOD SPECIMENOrdering Facility: [facility] Address: [address] [place] [address] Performed By: #### 5 7021-8 ####[facility] LABORATORYCLIA [id number] [address] [place] Nucleated RBC (Bld) [#/Vol] 10*3/uL Normal <0.01 [facility] Comment on above: Order Comment: Speci men Type: BLOOD SPECIMENOrdering Facility: [facility] Address: [address] [place] [address] Performed By: #### 5 7021-8 ####[facility] LABORATORYCLIA [id number] [address] [place] Nucleated RBC/100 WBC (Bld) [Ratio] 0.0 /100 WBC Normal [facility] Comment on above: Order Comment: Speci men Type: BLOOD SPECIMENOrdering Facility: [facility] Address: [address] [place] [address] Performed By: #### 5 7021-8 ####[facility] LABORATORYCLIA [id number] [address] [place] Platelet mean volume (Bld) [Entitic vol] 10.3 fL Normal 9.0-12.7 [facility] Comment on above: Order Comment: Speci men Type: BLOOD SPECIMENOrdering Facility: [facility] Address: [address] [place] [address] Performed By: #### 5 7021-8 ####[facility] LABORATORYCLIA [id number] [address] Platelets (Bld) [#/Vol] 403 10*3/uL High 150-400 [facility] Comment on above: Order Comment: Speci men Type: BLOOD SPECIMENOrdering Facility: [facility] Address: [address] [place] [address] Performed By: #### 5 7021-8 ####[facility] LABORATORYCLIA [id number] [address] [place] RBC (Bld) [#/Vol] 3.40 10*6/uL Low 4.20-6.00 [facility] Comment on above: Order Comment: Speci men Type: BLOOD SPECIMENOrdering Facility: [facility] Address: [address] [place] [address] Performed By: #### 5 7021-8 ####[facility] LABORATORYCLIA [id number] [address] OF [facility] WBC (Bld) [#/Vol] 10.12 10*3/uL Normal 3.70-11.00 [facility] Comment on above: Order Comment: Speci men Type: BLOOD SPECIMENOrdering Facility: [facility] Address: [address] [place] [address] Performed By: #### 5 7021-8 ####[facility] LABORATORYCLIA [id number] [address] Magnesium SerPl-mCncon 07-18 Magnesium [Mass/Vol] 2.4 mg/dL High 1.7-2.3 [facility] Comment on above: Order Comment: Speci men Type: BLOOD SPECIMENOrdering Facility: [facility] Address: [address] [place] [address] Performed By: #### 2 4321-2, 82071-2, 2777-1 ####[facility] LABORATORYCLIA [id number] [address] [place] NURSING PROGon 07-18-2021 NURSING PROG Normal [facility] NURSING PROG Normal [facility] Phosphate SerPl-mCncon 07-18 Phosphate [Mass/Vol] 3.9 mg/dL Normal 2.7-4.8 [facility] Comment on above: Order Comment: Speci men Type: BLOOD SPECIMENOrdering Facility: [facility] Address: [address] [place] [address] Performed By: #### 2 4321-2, 61334-1, 2777-1 ####[facility] LABORATORYCLIA [id number] [address] THERAPY NTon 07-18-2021 THERAPY NT Normal [facility] aPTT PPPon 07-18-2021 aPTT Coag (PPP) [Time] 52.3 s High 23.0-32.4 [facility] Comment on above: Order Comment: Speci men Type: BLOOD SPECIMENOrdering Facility: [facility] Address: [address] [place] [address] Performed By: #### 1 4979-9 ####[facility] LABORATORYCLIA [id number] [address] STATES OF [facility] CBC W Auto Differential pane l (Bld)on 07-17-2021 Basophils (Bld) [#/Vol] 0.05 10*3/uL Normal <0.11 [facility] Comment on above: Order Comment: Speci men Type: BLOOD SPECIMENOrdering Facility: [facility] Address: [address] [place] [address] Performed By: #### 5 7021-8 ####[facility] LABORATORYCLIA [id number] [address] Basophils/100 WBC (Bld) 0.5 % Normal [facility] Comment on above: Order Comment: Speci men Type: BLOOD SPECIMENOrdering Facility: [facility] Address: [address] [place] [address] Performed By: #### 5 7021-8 ####[facility]ORATORYCLIA [id number] [address] Differential cell count method Nom (Bld) Auto Normal [facility] Comment on above: Order Comment: Speci men Type: BLOOD SPECIMENOrdering Facility: [facility] Address: [address] [place] [address] Performed By: #### 5 7021-8 ####[facility] LABORATORYCLIA [id number] [address] [place] Eosinophils (Bld) [#/Vol] 0.32 10*3/uL Normal <0.46 [facility] Comment on above: Order Comment: Speci men Type: BLOOD SPECIMENOrdering Facility: [facility] Address: [address] [place] [address] Performed By: #### 5 7021-8 ####[facility] LABORATORYCLIA [id number] [address] Eosinophils/100 WBC (Bld) 3.4 % Normal [facility] Comment on above: Order Comment: Speci men Type: BLOOD SPECIMENOrdering Facility: [facility] Address: [address] [place] [address] Performed By: #### 5 7021-8 ####[facility] LABORATORYCLIA [id number] [address] [place] Erythrocyte distribution width (RBC) [Ratio] 16.6 % High 11.5-15.0 [facility] Comment on above: Order Comment: Speci men Type: BLOOD SPECIMENOrdering Facility: [facility] Address: [address] [place] [address] Performed By: #### 5 7021-8 ####[facility]ORATORYCLIA [id number] [address] [place] Hematocrit (Bld) [Volume fraction] 30.7 % Low 39.0-51.0 [facility] Comment on above: Order Comment: Speci men Type: BLOOD SPECIMENOrdering Facility: [facility] Address: [address] [place] [address] Performed By: #### 5 7021-8 ####[facility] LABORATORYCLIA [id number] [address] [place] Hemoglobin (Bld) [Mass/Vol] 9.0 g/dL Low 13.0-17.0 [facility] Comment on above: Order Comment: Speci men Type: BLOOD SPECIMENOrdering Facility: [facility] Address: [address] [place] [address] Performed By: #### 5 7021-8 ####[facility] LABORATORYCLIA [id number] [address] IMMATURE GRAN % 0.6 % Normal [facility] Comment on above: Order Comment: Speci men Type: BLOOD SPECIMENOrdering Facility: [facility] Address: [address] [place] [address] Performed By: #### 5 7021-8 ####[facility] LABORATORYCLIA [id number] [address] IMMATURE GRAN ABS 0.06 k/uL Normal <0.10 [facility] Comment on above: Order Comment: Speci men Type: BLOOD SPECIMENOrdering Facility: [facility] Address: [address] [place] [address] Performed By: #### 5 7021-8 ####[facility] LABORATORYCLIA [id number] [address] [place] Lymphocytes (Bld) [#/Vol] 1.61 10*3/uL Normal 1.00-4.00 [facility] Comment on above: Order Comment: Speci men Type: BLOOD SPECIMENOrdering Facility: [facility] Address: [address] [place] [address] Performed By: #### 5 7021-8 ####[facility] LABORATORYCLIA [id number] [address] Lymphocytes/100 WBC (Bld) 17.3 % Normal [facility] Comment on above: Order Comment: Speci men Type: BLOOD SPECIMENOrdering Facility: [facility] Address: [address] [place] [address] Performed By: #### 5 7021-8 ####[facility] LABORATORYCLIA [id number] [address] STATES OF [facility] MCH (RBC) [Entitic mass] 26.9 pg Normal 26.0-34.0 [facility] Comment on above: Order Comment: Speci men Type: BLOOD SPECIMENOrdering Facility: [facility] Address: [address] [place] [address] Performed By: #### 5 7021-8 ####[facility]ATORYCLIA [id number] [address] [place] MCHC (RBC) [Mass/Vol] 29.3 g/dL Low 30.5-36.0 [facility] Comment on above: Order Comment: Speci men Type: BLOOD SPECIMENOrdering Facility: [facility] Address: [address] [place] [address] Performed By: #### 5 7021-8 ####[facility]ORATORYCLIA [id number] [address] MCV (RBC) [Entitic vol] 91.9 fL Normal 80.0-100.0 [facility] Comment on above: Order Comment: Speci men Type: BLOOD SPECIMENOrdering Facility: [facility] Address: [address] [place] [address] Performed By: #### 5 7021-8 ####[facility]ORATORYCLIA [id number] [address] Monocytes (Bld) [#/Vol] 0.61 10*3/uL Normal <0.87 [facility] Comment on above: Order Comment: Speci men Type: BLOOD SPECIMENOrdering Facility: [facility] Address: [address] [place] [address] Performed By: #### 5 7021-8 ####[facility]ORYCLIA [id number] [address] [place] Monocytes/100 WBC (Bld) 6.6 % Normal [facility] Comment on above: Order Comment: Speci men Type: BLOOD SPECIMENOrdering Facility: [facility] Address: [address] [place] [address] Performed By: #### 5 7021-8 ####[facility]ATORYCLIA [id number] [place] [address] [place] Neutrophils (Bld) [#/Vol] 6.64 10*3/uL Normal 1.45-7.50 [facility] Comment on above: Order Comment: Speci men Type: BLOOD SPECIMENOrdering Facility: [facility] Address: [address] [place] [address] Performed By: #### 5 7021-8 ####[facility]ATORYCLIA [id number] [address] Neutrophils/100 WBC (Bld) 71.6 % Normal [facility] Comment on above: Order Comment: Speci men Type: BLOOD SPECIMENOrdering Facility: [facility] Address: [address] [place] [address] Performed By: #### 5 7021-8 ####[facility]ATORYCLIA [id number] [address] [place] Nucleated RBC (Bld) [#/Vol] 10*3/uL Normal <0.01 [facility] Comment on above: Order Comment: Speci men Type: BLOOD SPECIMENOrdering Facility: [facility] Address: [address] [place] [address] Performed By: #### 5 7021-8 ####[facility]ATORYCLIA [id number] [address] OF [place] Nucleated RBC/100 WBC (Bld) [Ratio] 0.0 /100 WBC Normal [facility] Comment on above: Order Comment: Speci men Type: BLOOD SPECIMENOrdering Facility: [facility] Address: [address] Performed By: #### 5 7021-8 ####[facility] LABORATORYCLIA [id number] [address] STATES [facility] Platelet mean volume (Bld) [Entitic vol] 10.1 fL Normal 9.0-12.7 [facility] Comment on above: Order Comment: Speci men Type: BLOOD SPECIMENOrdering Facility: [facility] Address: [address] [place] [address] Performed By: #### 5 7021-8 ####[facility]ATORYCLIA [id number] [address] OF [place] Platelets (Bld) [#/Vol] 387 10*3/uL Normal 150-400 [facility] Comment on above: Order Comment: Speci men Type: BLOOD SPECIMENOrdering Facility: [facility] Address: [address] [place] [address] Performed By: #### 5 7021-8 ####[facility]ATORYCLIA [id number] [address] [place] RBC (Bld) [#/Vol] 3.34 10*6/uL Low 4.20-6.00 [facility] Comment on above: Order Comment: Speci men Type: BLOOD SPECIMENOrdering Facility: [facility] Address: [address] [place], [place] [address] Performed By: #### 5 7021-8 ####[facility]ORATORYCLIA [id number] [address] [place] WBC (Bld) [#/Vol] 9.29 10*3/uL Normal 3.70-11.00 [facility] Comment on above: Order Comment: Speci men Type: BLOOD SPECIMENOrdering Facility: [facility] Address: [address] [place] [address] Performed By: #### 5 7021-8 ####[facility]ORATORYCLIA [id number] [address] [place] CONSULT PROGon 07-17-2021 CONSULT PROG Normal [facility] Magnesium SerPl-mCncon 07-17 Magnesium [Mass/Vol] 2.3 mg/dL Normal 1.7-2.3 [facility] Comment on above: Order Comment: Speci men Type: BLOOD SPECIMENOrdering Facility: [facility] Address: [address] [place] [address] Performed By: #### 2 777-1, 61581-6 ####[facility]ORATORYCLIA [id number] [address] NURSING PROGon 07-17-2021 NURSING PROG Normal [facility] NURSING PROG Normal [facility] NURSING PROG Normal [facility] Phosphate SerPl-mCncon 07-17 Phosphate [Mass/Vol] 3.6 mg/dL Normal 2.7-4.8 [facility] Comment on above: Order Comment: Speci men Type: BLOOD SPECIMENOrdering Facility: [facility] Address: [address] [place] [address] Performed By: #### 2 777-1, 90394-4 ####[facility]ORATORYCLIA [id number] [address] aPTT PPPon 07-17-2021 aPTT Coag (PPP) [Time] 57.2 s High 23.0-32.4 [facility] Comment on above: Order Comment: Speci men Type: BLOOD SPECIMENOrdering Facility: [facility] Address: [address] [place] [address] Performed By: #### 1 4979-9 ####[facility]ORATORYCLIA [id number] [address] [place] Basic metabolic 2000 panelon 07-16-2021 Anion gap [Moles/Vol] 5 mmol/L Low 9-18 [facility] Comment on above: Order Comment: Speci men Type: BLOOD SPECIMENOrdering Facility: [facility] Address: [address] [place] [address] Performed By: #### 2 777-1, 69974-0, ####[facility]ORATORYCLIA [id number] [place] [address] [place] Calcium [Mass/Vol] 9.1 mg/dL Normal 8.5-10.2 [facility] Comment on above: Order Comment: Speci men Type: BLOOD SPECIMENOrdering Facility: [facility] Address: [address] [place] [address] Performed By: #### 2 777-1, 74344-2, ####[facility]ORATORYCLIA [id number] [place] [address] [place] Chloride [Moles/Vol] 101 mmol/L Normal 97-105 [facility] Comment on above: Order Comment: Speci men Type: BLOOD SPECIMENOrdering Facility: [facility] Address: [address] [place] [address] Performed By: #### 2 777-1, , ####[facility]ORATORYCLIA [id number] [place] [address] [place] CO2 [Moles/Vol] 35 mmol/L High 22-30 [facility] Comment on above: Order Comment: Speci men Type: BLOOD SPECIMENOrdering Facility: [facility] Address: [address] [place] [address] Performed By: #### 2 777-1, , ####[facility]ORATORYCLIA [id number] [place] [address] [place] Creatinine [Mass/Vol] 0.73 mg/dL Normal 0.73-1.22 [facility] Comment on above: Order Comment: Speci men Type: BLOOD SPECIMENOrdering Facility: [facility] Address: [address] [place] [address] Performed By: #### 2 777-1, 64673-6, ####[facility]ORATORYCLIA [id number] [place] [address] [place] ESTIMATED GLOMERULAR FILTRATION RATE 98 mL/min/1.73m??? Normal >=60 [facility] Comment on above: Order Comment: Shira feldman Type: BLOOD SPECIMENOrdering Facility: [facility] Address: [address] [place], [place] [address] Result Comment: Luzmaria mated Glomerular Filtration Rate [...] actual GFR. Performed By: #### 2 777-1, 67643-3, ####[facility]ORATORYCLIA [id number] [place] [id number] [place] Glucose [Mass/Vol] 133 mg/dL High 74-99 [facility] Comment on above: Order Comment: Shira feldman Type: BLOOD SPECIMENOrdering Facility: [facility] Address: [address] [place] [address] Result Comment: The [place] [employer] (ADA) provides guidance for cutoff [...] Standards of Medical Care in Diabetes 2016, [place] [employer]. Diabetes Care. 2016.39(Suppl 1). Performed By: #### 2 777-1, 45968-8, ####[facility]ORATORYCLIA [id number] [place] [address] [place] Potassium [Moles/Vol] 4.2 mmol/L Normal 3.7-5.1 [facility] Comment on above: Order Comment: Speci men Type: BLOOD SPECIMENOrdering Facility: [facility] Address: [address] [place] [address] Performed By: #### 2 777-1, 94366-5, ####[facility]ORATORYCLIA [id number] [place] [address] [place] Sodium [Moles/Vol] 141 mmol/L Normal 136-144 [facility] Comment on above: Order Comment: Speci men Type: BLOOD SPECIMENOrdering Facility: [facility] Address: [address] [place] [address] Performed By: #### 2 777-1, , ####[facility]ATORYCLIA [id number] [address] [place] Urea nitrogen [Mass/Vol] 21 mg/dL Normal 9-24 [facility] Comment on above: Order Comment: Speci men Type: BLOOD SPECIMENOrdering Facility: [facility] Address: [address] [place] [address] Performed By: #### 2 777-1, , ####[facility]ATORYCLIA [id number] [address] [place] CBC W Auto Differential pane l (Bld)on 07-16-2021 Basophils (Bld) [#/Vol] 0.06 10*3/uL Normal <0.11 [facility] Comment on above: Order Comment: Speci men Type: BLOOD SPECIMENOrdering Facility: [facility] Address: [address] [place] [address] Performed By: #### 5 7021-8 ####[facility]ORATORYCLIA [id number] [address] [place] Basophils/100 WBC (Bld) 0.7 % Normal [facility] Comment on above: Order Comment: Speci men Type: BLOOD SPECIMENOrdering Facility: [facility] Address: [address] [place] [address] Performed By: #### 5 7021-8 ####[facility]ATORYCLIA [id number] [address] Differential cell count method Nom (Bld) Auto Normal [facility] Comment on above: Order Comment: Speci men Type: BLOOD SPECIMENOrdering Facility: [facility] Address: [address] [place] [address] Performed By: #### 5 7021-8 ####[facility]ORATORYCLIA [id number] [address] [place] Eosinophils (Bld) [#/Vol] 0.35 10*3/uL Normal <0.46 [facility] Comment on above: Order Comment: Speci men Type: BLOOD SPECIMENOrdering Facility: [facility] Address: [address] [place] [address] Performed By: #### 5 7021-8 ####[facility]ORATORYCLIA [id number] [address] Eosinophils/100 WBC (Bld) 3.9 % Normal [facility] Comment on above: Order Comment: Speci men Type: BLOOD SPECIMENOrdering Facility: [facility] Address: [address] [place] [address] Performed By: #### 5 7021-8 ####[facility]ORATORYCLIA [id number] [address] [place] Erythrocyte distribution width (RBC) [Ratio] 16.5 % High 11.5-15.0 [facility] Comment on above: Order Comment: Speci men Type: BLOOD SPECIMENOrdering Facility: [facility] Address: [address] [place] [address] Performed By: #### 5 7021-8 ####[facility]ATORYCLIA [id number] [address] [place] Hematocrit (Bld) [Volume fraction] 30.9 % Low 39.0-51.0 [facility] Comment on above: Order Comment: Speci men Type: BLOOD SPECIMENOrdering Facility: [facility] Address: [address] [place] [address] Performed By: #### 5 7021-8 ####[facility]ATORYCLIA [id number] [address] [place] Hemoglobin (Bld) [Mass/Vol] 9.1 g/dL Low 13.0-17.0 [facility] Comment on above: Order Comment: Speci men Type: BLOOD SPECIMENOrdering Facility: [facility] Address: [address] [place] [address] Performed By: #### 5 7021-8 ####[facility]ORATORYCLIA [id number] [address] IMMATURE GRAN % 0.4 % Normal [facility] Comment on above: Order Comment: Speci men Type: BLOOD SPECIMENOrdering Facility: [facility] Address: [address] [place] [address] Performed By: #### 5 7021-8 ####[facility]ORATORYCLIA [id number] [address] IMMATURE GRAN ABS 0.04 k/uL Normal <0.10 [facility] Comment on above: Order Comment: Speci men Type: BLOOD SPECIMENOrdering Facility: [facility] Address: [address] [place] [address] Performed By: #### 5 7021-8 ####[facility]ORATORYCLIA [id number] [address] [place] Lymphocytes (Bld) [#/Vol] 1.35 10*3/uL Normal 1.00-4.00 [facility] Comment on above: Order Comment: Speci men Type: BLOOD SPECIMENOrdering Facility: [facility] Address: [address] [place] [address] Performed By: #### 5 7021-8 ####[facility]ORATORYCLIA [id number] [address] Lymphocytes/100 WBC (Bld) 15.0 % Normal [facility] Comment on above: Order Comment: Speci men Type: BLOOD SPECIMENOrdering Facility: [facility] Address: [address] [place] [address] Performed By: #### 5 7021-8 ####[facility]ORATORYCLIA [id number] [address] STATES OF [facility] MCH (RBC) [Entitic mass] 27.1 pg Normal 26.0-34.0 [facility] Comment on above: Order Comment: Speci men Type: BLOOD SPECIMENOrdering Facility: [facility] Address: [address] [place] [address] Performed By: #### 5 7021-8 ####[facility]ATORYCLIA [id number] [address] MCHC (RBC) [Mass/Vol] 29.4 g/dL Low 30.5-36.0 [facility] Comment on above: Order Comment: Speci men Type: BLOOD SPECIMENOrdering Facility: [facility] Address: [address] [place] [address] Performed By: #### 5 7021-8 ####[facility]ATORYCLIA [id number] [address] MCV (RBC) [Entitic vol] 92.0 fL Normal 80.0-100.0 [facility] Comment on above: Order Comment: Speci men Type: BLOOD SPECIMENOrdering Facility: [facility] Address: [address] [place] [address] Performed By: #### 5 7021-8 ####[facility]ATORYCLIA [id number] [address] Monocytes (Bld) [#/Vol] 0.53 10*3/uL Normal <0.87 [facility] Comment on above: Order Comment: Speci men Type: BLOOD SPECIMENOrdering Facility: [facility] Address: [address] [place] [address] Performed By: #### 5 7021-8 ####[facility]ATORYCLIA [id number] [address] [place] Monocytes/100 WBC (Bld) 5.9 % Normal [facility] Comment on above: Order Comment: Speci men Type: BLOOD SPECIMENOrdering Facility: [facility] Address: [address] [place] [address] Performed By: #### 5 7021-8 ####[facility]ORYCLIA [id number] [address] [place] Neutrophils (Bld) [#/Vol] 6.67 10*3/uL Normal 1.45-7.50 [facility] Comment on above: Order Comment: Speci men Type: BLOOD SPECIMENOrdering Facility: [facility] Address: [address] [place] [address] Performed By: #### 5 7021-8 ####[facility]ATORYCLIA [id number] [address] Neutrophils/100 WBC (Bld) 74.1 % Normal [facility] Comment on above: Order Comment: Speci men Type: BLOOD SPECIMENOrdering Facility: [facility] Address: [address] [place] [address] Performed By: #### 5 7021-8 ####[facility]ATORYCLIA [id number] [address] [place] Nucleated RBC (Bld) [#/Vol] 10*3/uL Normal <0.01 [facility] Comment on above: Order Comment: Speci men Type: BLOOD SPECIMENOrdering Facility: [facility] Address: [address] [place] [address] Performed By: #### 5 7021-8 ####[facility]ATORYCLIA [id number] [address] OF [place] Nucleated RBC/100 WBC (Bld) [Ratio] 0.0 /100 WBC Normal [facility] Comment on above: Order Comment: Speci men Type: BLOOD SPECIMENOrdering Facility: [facility] Address: [address] [place], [place] [address] Performed By: #### 5 7021-8 ####[facility]ATORYCLIA [id number] [address] [place] Platelet mean volume (Bld) [Entitic vol] 9.9 fL Normal 9.0-12.7 [facility] Comment on above: Order Comment: Speci men Type: BLOOD SPECIMENOrdering Facility: [facility] Address: [address] [place], [place] [address] Performed By: #### 5 7021-8 ####[facility]ATORYCLIA [id number] [address] [place] Platelets (Bld) [#/Vol] 391 10*3/uL Normal 150-400 [facility] Comment on above: Order Comment: Speci men Type: BLOOD SPECIMENOrdering Facility: [facility] Address: [address] [place] [address] Performed By: #### 5 7021-8 ####[facility]ORATORYCLIA [id number] [place] [address] [place] RBC (Bld) [#/Vol] 3.36 10*6/uL Low 4.20-6.00 [facility] Comment on above: Order Comment: Speci men Type: BLOOD SPECIMENOrdering Facility: [facility] Address: [address] [place] [address] Performed By: #### 5 7021-8 ####[facility]ATORYCLIA [id number] [place] [address] [place] WBC (Bld) [#/Vol] 9.00 10*3/uL Normal 3.70-11.00 [facility] Comment on above: Order Comment: Speci men Type: BLOOD SPECIMENOrdering Facility: [facility] Address: [address] [place] [address] Performed By: #### 5 7021-8 ####[facility]ORATORYCLIA [id number] [address] CONSULT PROGon 07-16-2021 CONSULT PROG Normal [facility] CONSULT PROG Normal [facility] Magnesium SerPl-mCncon 07-16 Magnesium [Mass/Vol] 2.3 mg/dL Normal 1.7-2.3 [facility] Comment on above: Order Comment: Speci men Type: BLOOD SPECIMENOrdering Facility: [facility] Address: [address] [place] [address] Performed By: #### 2 777-1, 11958-9, ####[facility]ORATORYCLIA [id number] [address] NURSING PROGon 07-16-2021 NURSING PROG Normal [facility] Phosphate SerPl-mCncon 07-16 Phosphate [Mass/Vol] 3.6 mg/dL Normal 2.7-4.8 [facility] Comment on above: Order Comment: Speci men Type: BLOOD SPECIMENOrdering Facility: [facility] Address: [address] [place] [address] Performed By: #### 2 777-1, 09005-9, ####[facility]ORATORYCLIA [id number] [address] Vancomycin random [Mass/Vol] on 07-16-2021 Vancomycin [Mass/Vol] 16.9 ug/mL Normal 10.0-20.0 [facility] Comment on above: Order Comment: Speci men Type: BLOOD SPECIMENOrdering Facility: [facility] Address: [address] [place] [address] Result Comment: Refe rence ranges and high/low indicator flags are provided as general guidelines only. The treating physician must determine appropriate target levels/dosing based on the specific clinical situation. Performed By: #### 4 091-5 ####[facility]ORATORYCLIA [id number] [address] [place] aPTT PPPon 07-16-2021 aPTT Coag (PPP) [Time] 57.2 s High 23.0-32.4 [facility] Comment on above: Order Comment: Speci men Type: BLOOD SPECIMENOrdering Facility: [facility] Address: [address] [place] [address] Performed By: #### 1 4979-9 ####[facility]ORATORYCLIA [id number] [place] [id number] [place] ALLIED HEALTHon 07-15-2021 ALLIED HEALTH Normal [facility] Basic metabolic 2000 panelon 07-15-2021 Anion gap [Moles/Vol] 11 mmol/L Normal 9-18 [facility] Comment on above: Order Comment: Speci men Type: BLOOD SPECIMENOrdering Facility: [facility] Address: [address] [place] [address] Performed By: #### 2 4321-2, , 2776-05 ####[facility]ORATORYCLIA [id number] [place] [address] [place] Calcium [Mass/Vol] 8.8 mg/dL Normal 8.5-10.2 [facility] Comment on above: Order Comment: Speci men Type: BLOOD SPECIMENOrdering Facility: [facility] Address: [address] [place] [address] Performed By: #### 2 4321-2, , 2776-05 ####[facility]ORATORYCLIA [id number] [place] [address] [place] Chloride [Moles/Vol] 101 mmol/L Normal 97-105 [facility] Comment on above: Order Comment: Speci men Type: BLOOD SPECIMENOrdering Facility: [facility] Address: [address] [place] [address] Performed By: #### 2 4321-2, , 2776-05 ####[facility]ORATORYCLIA [id number] [place] [address] [place] CO2 [Moles/Vol] 31 mmol/L High 22-30 [facility] Comment on above: Order Comment: Speci men Type: BLOOD SPECIMENOrdering Facility: [facility] Address: [address] [place] [address] Performed By: #### 2 4321-2, , 2776-05 ####[facility]ENTERCLIA [id number] [place] [address] [place] Creatinine [Mass/Vol] 0.76 mg/dL Normal 0.73-1.22 [facility] Comment on above: Order Comment: Speci men Type: BLOOD SPECIMENOrdering Facility: [facility] Address: [address] [place] [address] Performed By: #### 2 4321-2, , 2776-05 ####[facility] POINTIA [id number] [address] [place] ESTIMATED GLOMERULAR FILTRATION RATE 97 mL/min/1.73m??? Normal >=60 [facility] Comment on above: Order Comment: Speccraa men Type: BLOOD SPECIMENOrdering Facility: [facility] Address: [address] [place] [address] Result Comment: Luzmaria mated Glomerular Filtration Rate [...] 4321-2, , 2776-05 ####[facility] LABORATORYIA [id number] [place] [address] [place] Glucose [Mass/Vol] 115 mg/dL High 74-99 [facility] Comment on above: Order Comment: Johni francia Type: BLOOD SPECIMENOrdering Facility: [facility] Address: [address] [place] [address] Result Comment: The [place] Diabetes Association (ADA) provides guidance for cutoff [...] Standards of Medical Care in Diabetes 2016, [place] [employer]. Diabetes Care. 2016.39(Suppl 1). Performed By: #### 2 4321-2, , 2776-05 ####[facility] LABORATORYCLIA [id number] [place] [address] [place] Potassium [Moles/Vol] 4.0 mmol/L Normal 3.7-5.1 [facility] Comment on above: Order Comment: Shira feldman Type: BLOOD SPECIMENOrdering Facility: [facility] Address: [address] [place] [address] Performed By: #### 2 4320-2, , 2776-05 ####[facility]ENTERCLIA [id number] [place] [address] [place] Sodium [Moles/Vol] 143 mmol/L Normal 136-144 [facility] Comment on above: Order Comment: Shira feldman Type: BLOOD SPECIMENOrdering Facility: [facility] Address: [address] [place] [address] Performed By: #### 2 4321-2, , 2776-05 ####[facility] LABORATORYCLIA [id number] [place] [address] [place] Urea nitrogen [Mass/Vol] 17 mg/dL Normal 9-24 [facility] Comment on above: Order Comment: Shira feldman Type: BLOOD SPECIMENOrdering Facility: [facility] Address: [address] [address] Performed By: #### 2 4321-2, , 2776-05 ####[facility] LABORATORYCLIA [id number] [address] [place] CASE MANAGEMon 07-15-2021 CASE MANAGEM Normal [facility] CBC panel Auto (Bld)on 07-15 Erythrocyte distribution width (RBC) [Ratio] 16.4 % High 11.5-15.0 [facility] Comment on above: Order Comment: Speci men Type: BLOOD SPECIMENOrdering Facility: [facility] Address: [address] [place] [address] Performed By: #### 5 8410-2 ####[facility] LABORATORYCLIA [id number] [address] Hematocrit (Bld) [Volume fraction] 30.3 % Low 39.0-51.0 [facility] Comment on above: Order Comment: Speci men Type: BLOOD SPECIMENOrdering Facility: [facility] Address: [address] [place] [address] Performed By: #### 5 8410-2 ####[facility] LABORATORYCLIA [id number] [address] Hemoglobin (Bld) [Mass/Vol] 9.2 g/dL Low 13.0-17.0 [facility] Comment on above: Order Comment: Speci men Type: BLOOD SPECIMENOrdering Facility: [facility] Address: [address] [place] [address] Performed By: #### 5 8410-2 ####[facility]ORATORYCLIA [id number] [address] [place] MCH (RBC) [Entitic mass] 28.3 pg Normal 26.0-34.0 [facility] Comment on above: Order Comment: Speci men Type: BLOOD SPECIMENOrdering Facility: [facility] Address: [address] [place] [address] Performed By: #### 5 8410-2 ####[facility] LABORATORYCLIA [id number] [address] [place] MCHC (RBC) [Mass/Vol] 30.4 g/dL Low 30.5-36.0 [facility] Comment on above: Order Comment: Speci men Type: BLOOD SPECIMENOrdering Facility: [facility] Address: [address] [place], [place] [address] Performed By: #### 5 8410-2 ####[facility] LABORATORYCLIA [id number] [address] [place] MCV (RBC) [Entitic vol] 93.2 fL Normal 80.0-100.0 [facility] Comment on above: Order Comment: Speci men Type: BLOOD SPECIMENOrdering Facility: [facility] Address: [address] [place], [place] [address] Performed By: #### 5 8410-2 ####[facility]ORATORYCLIA [id number] [address] [place] Nucleated RBC (Bld) [#/Vol] 10*3/uL Normal <0.01 [facility] Comment on above: Order Comment: Speci men Type: BLOOD SPECIMENOrdering Facility: [facility] Address: [address] [place] [address] Performed By: #### 5 8410-2 ####[facility]ORATORYCLIA [id number] [address] [place] Platelet mean volume (Bld) [Entitic vol] 9.9 fL Normal 9.0-12.7 [facility] Comment on above: Order Comment: Speci men Type: BLOOD SPECIMENOrdering Facility: [facility] Address: [address] [place], [place] [address] Performed By: #### 5 8410-2 ####[facility]ORATORYCLIA [id number] [address] [place] Platelets (Bld) [#/Vol] 381 10*3/uL Normal 150-400 [facility] Comment on above: Order Comment: Speci men Type: BLOOD SPECIMENOrdering Facility: [facility] Address: [address] [place] [address] Performed By: #### 5 8410-2 ####[facility]ORATORYCLIA [id number] [place] [address] [place] RBC (Bld) [#/Vol] 3.25 10*6/uL Low 4.20-6.00 [facility] Comment on above: Order Comment: Speci men Type: BLOOD SPECIMENOrdering Facility: [facility] Address: [address] [place] [address] Performed By: #### 5 8410-2 ####[facility]ORATORYCLIA [id number] [address] [place] WBC (Bld) [#/Vol] 8.80 10*3/uL Normal 3.70-11.00 [facility] Comment on above: Order Comment: Speci men Type: BLOOD SPECIMENOrdering Facility: [facility] Address: [address] [place] [address] Performed By: #### 5 8410-2 ####[facility]ORATORYCLIA [id number] [address] [place] Magnesium SerPl-mCncon 07-15 Magnesium [Mass/Vol] 2.2 mg/dL Normal 1.7-2.3 [facility] Comment on above: Order Comment: Speci men Type: BLOOD SPECIMENOrdering Facility: [facility] Address: [address] [place] [address] Performed By: #### 2 4321-2, 50150-2, 2777-1 ####[facility]ORATORYCLIA [id number] [place] [address] [place] NURSING PROGon 07-15-2021 NURSING PROG Normal [facility] NURSING PROG Normal [facility] NURSING PROG Normal [facility] NUTRITIONon 07-15-2021 NUTRITION Normal [facility] Phosphate SerPl-mCncon 07-15 Phosphate [Mass/Vol] 3.4 mg/dL Normal 2.7-4.8 [facility] Comment on above: Order Comment: Speci men Type: BLOOD SPECIMENOrdering Facility: [facility] Address: [address] [place] [address] Performed By: #### 2 4321-2, 60760-2, 2777-1 ####[facility]ORATORYCLIA [id number] [place] [address] [facility] THERAPY NTon 07-15-2021 THERAPY NT Normal [facility] US DVT UPPER LTon 07-15-2021 US DVT UPPER LT Normal [facility] XR CHEST 1V FRONTALon 2021 XR CHEST 1V FRONTAL Normal [facility] aPTT PPPon 07-15-2021 aPTT Coag (PPP) [Time] 59.9 s High 23.0-32.4 [facility] Comment on above: Order Comment: Speci men Type: BLOOD SPECIMENOrdering Facility: [facility] Address: [address] [place] [address] Performed By: #### 1 4979-9 ####[facility]ORATORYCLIA [id number] [place] [address] [place] Basic metabolic 2000 panelon 07-14-2021 Anion gap [Moles/Vol] 9 mmol/L Normal 9-18 [facility] Comment on above: Order Comment: Speci men Type: BLOOD SPECIMENOrdering Facility: [facility] Address: [address] [place] [address] Performed By: #### 1 9123-9, 2777-1, 83167-9 ####[facility]ORATORYCLIA [id number] [place] [address] [place] Calcium [Mass/Vol] 8.5 mg/dL Normal 8.5-10.2 [facility] Comment on above: Order Comment: Speci men Type: BLOOD SPECIMENOrdering Facility: [facility] Address: [address] [place] [address] Performed By: #### 1 9123-9, 2777-1, 05486-2 ####[facility]ORATORYCLIA [id number] [place] [address] [place] Chloride [Moles/Vol] 99 mmol/L Normal 97-105 [facility] Comment on above: Order Comment: Speci men Type: BLOOD SPECIMENOrdering Facility: [facility] Address: [address] [place] [address] Performed By: #### 1 9123-9, 2777, ####[facility]ATORYCLIA [id number] [address] CO2 [Moles/Vol] 31 mmol/L High 22-30 [facility] Comment on above: Order Comment: Speci men Type: BLOOD SPECIMENOrdering Facility: [facility] Address: [address] [place] [address] Performed By: #### 1 9123-9, 27711-04, ####[facility]ORATORYCLIA [id number] [address] Creatinine [Mass/Vol] 0.74 mg/dL Normal 0.73-1.22 [facility] Comment on above: Order Comment: Speci men Type: BLOOD SPECIMENOrdering Facility: [facility] Address: [address] [place] [address] Performed By: #### 1 9123-9, 2776-05, ####[facility]ENTERCLIA [id number] [address] ESTIMATED GLOMERULAR FILTRATION RATE 98 mL/min/1.73m??? Normal >=60 [facility] Comment on above: Order Comment: Speci men Type: BLOOD SPECIMENOrdering Facility: [facility] Address: [address] [place] [address] Result Comment: Luzmaria mated Glomerular Filtration Rate [...] GFR. Performed By: #### 1 9123-9, 27711-04, 55384-7 ####[facility]ORATORYCLIA [id number] [place] [address] [place] Glucose [Mass/Vol] 117 mg/dL High 74-99 [facility] Comment on above: Order Comment: Speci men Type: BLOOD SPECIMENOrdering Facility: [facility] Address: [address] [place] [address] Result Comment: The [place] Diabetes Association (ADA) provides guidance for cutoff [...] Standards of Medical Care in Diabetes 2016, [place] [employer]. Diabetes Care. 2016.39(Suppl 1). Performed By: #### 1 9123-9, 2777, 49818-0 ####[facility]ORATORYCLIA [id number] [place] [address] [place] Potassium [Moles/Vol] 3.7 mmol/L Normal 3.7-5.1 [facility] Comment on above: Order Comment: Speci men Type: BLOOD SPECIMENOrdering Facility: [facility] Address: [address] [place], [place] [address] Performed By: #### 1 9123-9, 27711-04, 12542-4 ####[facility]ORATORYCLIA [id number] [place] [address] [place] Sodium [Moles/Vol] 139 mmol/L Normal 136-144 [facility] Comment on above: Order Comment: Speci men Type: BLOOD SPECIMENOrdering Facility: [facility] Address: [address] [place] [address] Performed By: #### 1 9123-9, 27711-04, 84834-1 ####[facility]ORATORYCLIA [id number] [address] [place] Urea nitrogen [Mass/Vol] 16 mg/dL Normal 9-24 [facility] Comment on above: Order Comment: Speci men Type: BLOOD SPECIMENOrdering Facility: [facility] Address: [address] [place] [address] Performed By: #### 1 9123-9, 2777-1, 39656-5 ####[facility]ATORYCLIA [id number] [address] CBC panel Auto (Bld)on 07-14 Erythrocyte distribution width (RBC) [Ratio] 16.2 % High 11.5-15.0 [facility] Comment on above: Order Comment: Speci men Type: BLOOD SPECIMENOrdering Facility: [facility] Address: [address] [place] [address] Performed By: #### 5 8410-2 ####[facility]ORATORYCLIA [id number] [address] STATES OF [facility] Hematocrit (Bld) [Volume fraction] 29.7 % Low 39.0-51.0 [facility] Comment on above: Order Comment: Speci men Type: BLOOD SPECIMENOrdering Facility: [facility] Address: [address] [place] [address] Performed By: #### 5 8410-2 ####[facility]ORATORYCLIA [id number] [address] [place] Hemoglobin (Bld) [Mass/Vol] 8.8 g/dL Low 13.0-17.0 [facility] Comment on above: Order Comment: Speci men Type: BLOOD SPECIMENOrdering Facility: [facility] Address: [address] [place] [address] Performed By: #### 5 8410-2 ####[facility]ORATORYCLIA [id number] [address] [place] MCH (RBC) [Entitic mass] 27.5 pg Normal 26.0-34.0 [facility] Comment on above: Order Comment: Speci men Type: BLOOD SPECIMENOrdering Facility: [facility] Address: [address] [place] [address] Performed By: #### 5 8410-2 ####[facility]ORATORYCLIA [id number] [address] MCHC (RBC) [Mass/Vol] 29.6 g/dL Low 30.5-36.0 [facility] Comment on above: Order Comment: Speci men Type: BLOOD SPECIMENOrdering Facility: [facility] Address: [address] [place] [address] Performed By: #### 5 8410-2 ####[facility]ORATORYCLIA [id number] [address] [place] MCV (RBC) [Entitic vol] 92.8 fL Normal 80.0-100.0 [facility] Comment on above: Order Comment: Speci men Type: BLOOD SPECIMENOrdering Facility: [facility] Address: [address] [place] [address] Performed By: #### 5 8410-2 ####[facility]ORATORYCLIA [id number] [address] Nucleated RBC (Bld) [#/Vol] 10*3/uL Normal <0.01 [facility] Comment on above: Order Comment: Speci men Type: BLOOD SPECIMENOrdering Facility: [facility] Address: [address] [place] [address] Performed By: #### 5 8410-2 ####[facility]ATORYCLIA [id number] [address] Platelet mean volume (Bld) [Entitic vol] 9.6 fL Normal 9.0-12.7 [facility] Comment on above: Order Comment: Speci men Type: BLOOD SPECIMENOrdering Facility: [facility] Address: [address] [place] [address] Performed By: #### 5 8410-2 ####[facility]ATORYCLIA [id number] [place] [address] [place] Platelets (Bld) [#/Vol] 354 10*3/uL Normal 150-400 [facility] Comment on above: Order Comment: Speci men Type: BLOOD SPECIMENOrdering Facility: [facility] Address: [address] [place] [address] Performed By: #### 5 8410-2 ####[facility]ORATORYCLIA [id number] [place] [address] [place] RBC (Bld) [#/Vol] 3.20 10*6/uL Low 4.20-6.00 [facility] Comment on above: Order Comment: Speci men Type: BLOOD SPECIMENOrdering Facility: [facility] Address: [address] [place] [address] Performed By: #### 5 8410-2 ####[facility]ORATORYCLIA [id number] [address] STATES OF [facility] WBC (Bld) [#/Vol] 9.41 10*3/uL Normal 3.70-11.00 [facility] Comment on above: Order Comment: Speci men Type: BLOOD SPECIMENOrdering Facility: [facility] Address: [address] [place] [address] Performed By: #### 5 8410-2 ####[facility]ATORYCLIA [id number] [address] [place] CONSULT PROGon 07-14-2021 CONSULT PROG Normal [facility] Magnesium SerPl-mCncon 07-14 Magnesium [Mass/Vol] 2.2 mg/dL Normal 1.7-2.3 [facility] Comment on above: Order Comment: Speci men Type: BLOOD SPECIMENOrdering Facility: [facility] Address: [address] [place] [address] Performed By: #### 1 9123-9, 2777-1, 64828-1 ####[facility]ATORYCLIA [id number] [address] [place] NURSING PROGon 07-14-2021 NURSING PROG Normal [facility] Phosphate SerPl-mCncon 07-14 Phosphate [Mass/Vol] 3.6 mg/dL Normal 2.7-4.8 [facility] Comment on above: Order Comment: Speci men Type: BLOOD SPECIMENOrdering Facility: [facility] Address: [address] [place] [address] Performed By: #### 1 9123-9, 2777-1, 36762-4 ####[facility]ATORYCLIA [id number] [address] [place] aPTT PPPon 07-14-2021 aPTT Coag (PPP) [Time] 62.9 s High 23.0-32.4 [facility] Comment on above: Order Comment: Speci men Type: BLOOD SPECIMENOrdering Facility: [facility] Address: [address] [place] [address] Performed By: #### 1 4979-9 ####[facility]ATORYCLIA [id number] [address] [place] aPTT Coag (PPP) [Time] 55.2 s High 23.0-32.4 [facility] Comment on above: Order Comment: Speci men Type: BLOOD SPECIMENOrdering Facility: [facility] Address: [address] [place] [address] Performed By: #### 1 4979-9 ####[facility]ATORYCLIA [id number] [place] [address] [place] Basic metabolic 2000 panelon 07-13-2021 Anion gap [Moles/Vol] 10 mmol/L Normal 9-18 [facility] Comment on above: Order Comment: Speci men Type: BLOOD SPECIMENOrdering Facility: [facility] Address: [address] [place] [address] Performed By: #### 1 9123-9, 2777-1, 69286-1 ####[facility]ATORYCLIA [id number] [address] STATES OF [facility] Calcium [Mass/Vol] 8.5 mg/dL Normal 8.5-10.2 [facility] Comment on above: Order Comment: Speci men Type: BLOOD SPECIMENOrdering Facility: [facility] Address: [address] [place] [address] Performed By: #### 1 9123-9, 2777-1, 16293-2 ####[facility]ATORYCLIA [id number] [place] [address] [place] Chloride [Moles/Vol] 98 mmol/L Normal 97-105 [facility] Comment on above: Order Comment: Speci men Type: BLOOD SPECIMENOrdering Facility: [facility] Address: [address] [place] [address] Performed By: #### 1 9123-9, 27711-04, 28327-6 ####[facility]ATORYCLIA [id number] [address] STATES OF [facility] CO2 [Moles/Vol] 32 mmol/L High 22-30 [facility] Comment on above: Order Comment: Speci men Type: BLOOD SPECIMENOrdering Facility: [facility] Address: [address] [place] [address] Performed By: #### 1 9123-9, 27711-04, 28243-9 ####[facility]ATORYCLIA [id number] [address] [place] Creatinine [Mass/Vol] 0.75 mg/dL Normal 0.73-1.22 [facility] Comment on above: Order Comment: Speci men Type: BLOOD SPECIMENOrdering Facility: [facility] Address: [address] [place] [address] Performed By: #### 1 9123-9, 2777, 48645-8 ####[facility]ATORYCLIA [id number] [address] [place] ESTIMATED GLOMERULAR FILTRATION RATE 98 mL/min/1.73m??? Normal >=60 [facility] Comment on above: Order Comment: Speci men Type: BLOOD SPECIMENOrdering Facility: [facility] Address: [address] [id number] Result Comment: Luzmaria mated Glomerular Filtration Rate [...] GFR. Performed By: #### 1 9123-9, 2777-1, 77304-2 ####[facility]ATORYCLIA [id number] [place] [address] [place] Glucose [Mass/Vol] 118 mg/dL High 74-99 [facility] Comment on above: Order Comment: Shira feldman Type: BLOOD SPECIMENOrdering Facility: [facility] Address: [address] [place] [phone] Result Comment: The [place] Diabetes Association (ADA) provides guidance for cutoff [...] Standards of Medical Care in Diabetes 2016, [place] [employer]. Diabetes Care. 2016.39(Suppl 1). Performed By: #### 1 9123-9, 2777-1, 77601-4 ####[facility]ATORYCLIA [id number] [place] [address] [place] Potassium [Moles/Vol] 3.6 mmol/L Low 3.7-5.1 [facility] Comment on above: Order Comment: Shira feldman Type: BLOOD SPECIMENOrdering Facility: [facility] Address: [address] [phone] Performed By: #### 1 9123-9, 2777-1, 50764-6 ####[facility]ATORYCLIA [id number] [address] Sodium [Moles/Vol] 140 mmol/L Normal 136-144 [facility] Comment on above: Order Comment: Speci men Type: BLOOD SPECIMENOrdering Facility: [facility] Address: [address] [place] [address] Performed By: #### 1 9123-9, 2777-, 02339-9 ####[facility]ATORYCLIA [id number] [address] STATES [facility] Urea nitrogen [Mass/Vol] 15 mg/dL Normal 9-24 [facility] Comment on above: Order Comment: Speci men Type: BLOOD SPECIMENOrdering Facility: [facility] Address: [address] [place] [address] Performed By: #### 1 9123-9, 2777, 39842-1 ####[facility]ATORYCLIA [id number] [address] CASE MANAGEMon 07-13-2021 CASE MANAGEM Normal [facility] CBC panel Auto (Bld)on 07-13 Erythrocyte distribution width (RBC) [Ratio] 16.2 % High 11.5-15.0 [facility] Comment on above: Order Comment: Speci men Type: BLOOD SPECIMENOrdering Facility: [facility] Address: [address] [place] [address] Performed By: #### 5 8410-2 ####[facility] LABORATORYCLIA [id number] [address] Hematocrit (Bld) [Volume fraction] 29.5 % Low 39.0-51.0 [facility] Comment on above: Order Comment: Speci men Type: BLOOD SPECIMENOrdering Facility: [facility] Address: [address] [place] [address] Performed By: #### 5 8410-2 ####[facility] LABORATORYCLIA [id number] [address] STATES OF [facility] Hemoglobin (Bld) [Mass/Vol] 8.9 g/dL Low 13.0-17.0 [facility] Comment on above: Order Comment: Speci men Type: BLOOD SPECIMENOrdering Facility: [facility] Address: [address] [place] [address] Performed By: #### 5 8410-2 ####[facility]ATORYCLIA [id number] [address] MCH (RBC) [Entitic mass] 27.8 pg Normal 26.0-34.0 [facility] Comment on above: Order Comment: Speci men Type: BLOOD SPECIMENOrdering Facility: [facility] Address: [address] [place] [address] Performed By: #### 5 8410-2 ####[facility] LABORATORYCLIA [id number] [address] MCHC (RBC) [Mass/Vol] 30.2 g/dL Low 30.5-36.0 [facility] Comment on above: Order Comment: Speci men Type: BLOOD SPECIMENOrdering Facility: [facility] Address: [address] [place] [address] Performed By: #### 5 8410-2 ####[facility]ATORYCLIA [id number] [address] MCV (RBC) [Entitic vol] 92.2 fL Normal 80.0-100.0 [facility] Comment on above: Order Comment: Speci men Type: BLOOD SPECIMENOrdering Facility: [facility] Address: [address] [place] [address] Performed By: #### 5 8410-2 ####[facility]ATORYCLIA [id number] [address] Nucleated RBC (Bld) [#/Vol] 10*3/uL Normal <0.01 [facility] Comment on above: Order Comment: Speci men Type: BLOOD SPECIMENOrdering Facility: [facility] Address: [address] [place] [address] Performed By: #### 5 8410-2 ####[facility]ATORYCLIA [id number] [address] [place] Platelet mean volume (Bld) [Entitic vol] 9.8 fL Normal 9.0-12.7 [facility] Comment on above: Order Comment: Speci men Type: BLOOD SPECIMENOrdering Facility: [facility] Address: [address] [place] [address] Performed By: #### 5 8410-2 ####[facility]ORATORYCLIA [id number] [address] [place] Platelets (Bld) [#/Vol] 356 10*3/uL Normal 150-400 [facility] Comment on above: Order Comment: Speci men Type: BLOOD SPECIMENOrdering Facility: [facility] Address: [address] [place] [address] Performed By: #### 5 8410-2 ####[facility]ATORYCLIA [id number] [place] [address] [place] RBC (Bld) [#/Vol] 3.20 10*6/uL Low 4.20-6.00 [facility] Comment on above: Order Comment: Speci men Type: BLOOD SPECIMENOrdering Facility: [facility] Address: [address] [place], [place] [address] Performed By: #### 5 8410-2 ####[facility]ATORYCLIA [id number] [address] [place] WBC (Bld) [#/Vol] 9.20 10*3/uL Normal 3.70-11.00 [facility] Comment on above: Order Comment: Speci men Type: BLOOD SPECIMENOrdering Facility: [facility] Address: [address] [place] [address] Performed By: #### 5 8410-2 ####[facility]ORATORYCLIA [id number] [address] [place] CONSULT PROGon 07-13-2021 CONSULT PROG Normal [facility] CONSULT PROG Normal [facility] CONSULT PROG Normal [facility] Magnesium SerPl-mCncon 07-13 Magnesium [Mass/Vol] 2.1 mg/dL Normal 1.7-2.3 [facility] Comment on above: Order Comment: Speci men Type: BLOOD SPECIMENOrdering Facility: [facility] Address: [address] [place] [address] Performed By: #### 1 9123-9, 2777-1, 80947-5 ####[facility]ATORYCLIA [id number] [address] Phosphate SerPl-mCncon 07-13 Phosphate [Mass/Vol] 3.7 mg/dL Normal 2.7-4.8 [facility] Comment on above: Order Comment: Speci men Type: BLOOD SPECIMENOrdering Facility: [facility] Address: [address] [place] [address] Performed By: #### 1 9123-9, 2777-1, 99712-0 ####[facility]ENTERCLIA [id number] [address] THERAPY NTon 07-13-2021 THERAPY NT Normal [facility] THERAPY NT Normal [facility] Vancomycin random [Mass/Vol] on 07-13-2021 Vancomycin [Mass/Vol] 31.7 ug/mL High 10.0-20.0 [facility] Comment on above: Order Comment: Speci men Type: BLOOD SPECIMENOrdering Facility: [facility] Address: [address] [place] [address] Result Comment: Refe rence ranges and high/low indicator flags are provided as general guidelines only. The treating physician must determine appropriate target levels/dosing based on the specific clinical situation. Performed By: #### 4 091-5 ####[facility]ORATORYCLIA [id number] [address] [place] aPTT PPPon 07-13-2021 aPTT Coag (PPP) [Time] 47.3 s High 23.0-32.4 [facility] Comment on above: Order Comment: Speci men Type: BLOOD SPECIMENOrdering Facility: [facility] Address: [address] [place] [address] Performed By: #### 1 4979-9 ####[facility]ORATORYCLIA [id number] [address] aPTT Coag (PPP) [Time] 51.2 s High 23.0-32.4 [facility] Comment on above: Order Comment: Speci men Type: BLOOD SPECIMENOrdering Facility: [facility] Address: [address] [place] [address] Performed By: #### 1 4979-9 ####[facility]ATORYCLIA [id number] [address] aPTT Coag (PPP) [Time] 47.5 s High 23.0-32.4 [facility] Comment on above: Order Comment: Speci men Type: BLOOD SPECIMENOrdering Facility: [facility] Address: [address] [place] [address] Performed By: #### 1 4979-9 ####[facility]ORATORYCLIA [id number] [address] STATES OF [facility] Basic metabolic 2000 panelon 07-12-2021 Anion gap [Moles/Vol] 7 mmol/L Low 9-18 [facility] Comment on above: Order Comment: Speci men Type: BLOOD SPECIMENOrdering Facility: [facility] Address: [address] [place] [address] Performed By: #### 1 9123-9, 2777-1, 24591-1 ####[facility]ORATORYCLIA [id number] [address] STATES OF [facility] Calcium [Mass/Vol] 8.3 mg/dL Low 8.5-10.2 [facility] Comment on above: Order Comment: Speci men Type: BLOOD SPECIMENOrdering Facility: [facility] Address: [address] [place] [address] Performed By: #### 1 9123-9, 27711-04, 56002-6 ####[facility]ORATORYCLIA [id number] [place] [address] [place] Chloride [Moles/Vol] 101 mmol/L Normal 97-105 [facility] Comment on above: Order Comment: Speci men Type: BLOOD SPECIMENOrdering Facility: [facility] Address: [address] [place] [address] Performed By: #### 1 9123-9, 2776-05, 00850-1 ####[facility]ORATORYCLIA [id number] [address] STATES [place] CO2 [Moles/Vol] 32 mmol/L High 22-30 [facility] Comment on above: Order Comment: Speci men Type: BLOOD SPECIMENOrdering Facility: [facility] Address: [address] [place] [address] Performed By: #### 1 9123-9, 2776-05, 99324-5 ####[facility]ATORYCLIA [id number] [address] [place] Creatinine [Mass/Vol] 0.70 mg/dL Low 0.73-1.22 [facility] Comment on above: Order Comment: Speci men Type: BLOOD SPECIMENOrdering Facility: [facility] Address: [address] [place] [address] Performed By: #### 1 9123-9, 27711-04, 85570-9 ####[facility]ORATORYCLIA [id number] [address] [place] ESTIMATED GLOMERULAR FILTRATION RATE 100 mL/min/1.73m??? Normal >=60 [facility] Comment on above: Order Comment: Speci men Type: BLOOD SPECIMENOrdering Facility: [facility] Address: [address] [place] [address] Result Comment: Luzmaria mated Glomerular Filtration Rate [...] GFR. Performed By: #### 1 9123-9, 2777-1, 66084-6 ####[facility]ORATORYCLIA [id number] [place] [address] [place] Glucose [Mass/Vol] 104 mg/dL High 74-99 [facility] Comment on above: Order Comment: Shira feldman Type: BLOOD SPECIMENOrdering Facility: [facility] Address: [address] [place] [address] Result Comment: The [place] [employer] (ADA) provides guidance for cutoff [...] Standards of Medical Care in Diabetes 2016, [place] [employer]. Diabetes Care. 2016.39(Suppl 1). Performed By: #### 1 9123-9, 2777-, 62687-4 ####[facility] LABORATORYIA [id number] [place] [address] [place] Potassium [Moles/Vol] 3.7 mmol/L Normal 3.7-5.1 [facility] Comment on above: Order Comment: Shira feldman Type: BLOOD SPECIMENOrdering Facility: [facility] Address: [address] [place] [address] Performed By: #### 1 9123-9, 2777-, 14768-2 ####[facility]ORATORYCLIA [id number] [address] STATES [facility] Sodium [Moles/Vol] 140 mmol/L Normal 136-144 [facility] Comment on above: Order Comment: Speci men Type: BLOOD SPECIMENOrdering Facility: [facility] Address: [address] [place] [address] Performed By: #### 1 9123-9, 2777-1, 61558-8 ####[facility]ORATORYCLIA [id number] [address] STATES OF [facility] Urea nitrogen [Mass/Vol] 12 mg/dL Normal 9-24 [facility] Comment on above: Order Comment: Speci men Type: BLOOD SPECIMENOrdering Facility: [facility] Address: [address] [place] [address] Performed By: #### 1 9123-9, 2777-1, 96320-8 ####[facility]ORATORYCLIA [id number] [address] CBC panel Auto (Bld)on 07-12 Erythrocyte distribution width (RBC) [Ratio] 16.1 % High 11.5-15.0 [facility] Comment on above: Order Comment: Speci men Type: BLOOD SPECIMENOrdering Facility: [facility] Address: [address] [place] [address] Performed By: #### 5 8410-2 ####[facility]ORATORYCLIA [id number] [address] [place] Hematocrit (Bld) [Volume fraction] 28.2 % Low 39.0-51.0 [facility] Comment on above: Order Comment: Speci men Type: BLOOD SPECIMENOrdering Facility: [facility] Address: [address] [place] [address] Performed By: #### 5 8410-2 ####[facility]ORATORYCLIA [id number] [address] [place] Hemoglobin (Bld) [Mass/Vol] 8.5 g/dL Low 13.0-17.0 [facility] Comment on above: Order Comment: Speci men Type: BLOOD SPECIMENOrdering Facility: [facility] Address: [address] [place] [address] Performed By: #### 5 8410-2 ####[facility]ATORYCLIA [id number] [address] MCH (RBC) [Entitic mass] 26.8 pg Normal 26.0-34.0 [facility] Comment on above: Order Comment: Speci men Type: BLOOD SPECIMENOrdering Facility: [facility] Address: [address] [place] [address] Performed By: #### 5 8410-2 ####[facility]ORATORYCLIA [id number] [address] MCHC (RBC) [Mass/Vol] 30.1 g/dL Low 30.5-36.0 [facility] Comment on above: Order Comment: Speci men Type: BLOOD SPECIMENOrdering Facility: [facility] Address: [address] [place] [address] Performed By: #### 5 8410-2 ####[facility]ATORYCLIA [id number] [address] MCV (RBC) [Entitic vol] 89.0 fL Normal 80.0-100.0 [facility] Comment on above: Order Comment: Speci men Type: BLOOD SPECIMENOrdering Facility: [facility] Address: [address] [place] [address] Performed By: #### 5 8410-2 ####[facility]ATORYCLIA [id number] [address] Nucleated RBC (Bld) [#/Vol] 10*3/uL Normal <0.01 [facility] Comment on above: Order Comment: Speci men Type: BLOOD SPECIMENOrdering Facility: [facility] Address: [address] [place] [address] Performed By: #### 5 8410-2 ####[facility]ORATORYCLIA [id number] [address] [place] Platelet mean volume (Bld) [Entitic vol] 9.6 fL Normal 9.0-12.7 [facility] Comment on above: Order Comment: Speci men Type: BLOOD SPECIMENOrdering Facility: [facility] Address: [address] [place] [address] Performed By: #### 5 8410-2 ####[facility]ORATORYCLIA [id number] [place] [address] [place] Platelets (Bld) [#/Vol] 340 10*3/uL Normal 150-400 [facility] Comment on above: Order Comment: Speci men Type: BLOOD SPECIMENOrdering Facility: [facility] Address: [address] [place] [address] Performed By: #### 5 8410-2 ####[facility]ORATORYCLIA [id number] [place] [address] [place] RBC (Bld) [#/Vol] 3.17 10*6/uL Low 4.20-6.00 [facility] Comment on above: Order Comment: Speci men Type: BLOOD SPECIMENOrdering Facility: [facility] Address: [address] [place] [address] Performed By: #### 5 8410-2 ####[facility]ORATORYCLIA [id number] [place] [address] [place] WBC (Bld) [#/Vol] 8.66 10*3/uL Normal 3.70-11.00 [facility] Comment on above: Order Comment: Speci men Type: BLOOD SPECIMENOrdering Facility: [facility] Address: [address] [place] [address] Performed By: #### 5 8410-2 ####[facility]ORATORYCLIA [id number] [address] [place] CONSULTon 07-12-2021 CONSULT Normal [facility] CONSULT PROGon 07-12-2021 CONSULT PROG Normal [facility] Magnesium SerPl-mCncon 07-12 Magnesium [Mass/Vol] 2.1 mg/dL Normal 1.7-2.3 [facility] Comment on above: Order Comment: Speci men Type: BLOOD SPECIMENOrdering Facility: [facility] Address: [address] [place] [address] Performed By: #### 1 9123-9, 2777-1, 76391-9 ####[facility]ORATORYCLIA [id number] [address] OF [facility] NURSING PROGon 07-12-2021 NURSING PROG Normal [facility] Phosphate SerPl-mCncon 07-12 Phosphate [Mass/Vol] 3.1 mg/dL Normal 2.7-4.8 [facility] Comment on above: Order Comment: Speci men Type: BLOOD SPECIMENOrdering Facility: [facility] Address: [address] [place] [address] Performed By: #### 1 9123-9, 2777-1, 00866-0 ####[facility]ATORYCLIA [id number] [address] OF [facility] THERAPY NTon 07-12-2021 THERAPY NT Normal [facility] aPTT PPPon 07-12-2021 aPTT Coag (PPP) [Time] 49.5 s High 23.0-32.4 [facility] Comment on above: Order Comment: Speci men Type: BLOOD SPECIMENOrdering Facility: [facility] Address: [address] [place] [address] Performed By: #### 1 4979-9 ####[facility]ATORYCLIA [id number] [address] aPTT Coag (PPP) [Time] 68.0 s High 23.0-32.4 [facility] Comment on above: Order Comment: Speci men Type: BLOOD SPECIMENOrdering Facility: [facility] Address: [address] [place] [address] Performed By: #### 1 4979-9 ####[facility]ATORYCLIA [id number] [place] [address] [place] aPTT Coag (PPP) [Time] 80.0 s High 23.0-32.4 [facility] Comment on above: Order Comment: Speci men Type: BLOOD SPECIMENOrdering Facility: [facility] Address: [address] [place] [address] Performed By: #### 1 4979-9 ####[facility]ATORYCLIA [id number] [address] [place] CASE MGT INIT ASSESon 2021 CASE MGT INIT ASSES Normal [facility] CBC panel Auto (Bld)on 07-11 Erythrocyte distribution width (RBC) [Ratio] 16.3 % High 11.5-15.0 [facility] Comment on above: Order Comment: Speci men Type: BLOOD SPECIMENOrdering Facility: [facility] Address: [address] [place] [address] Performed By: #### 5 8410-2 ####[facility] CENTERCLIA [id number] [address] STATES [facility] Hematocrit (Bld) [Volume fraction] 28.3 % Low 39.0-51.0 [facility] Comment on above: Order Comment: Speci men Type: BLOOD SPECIMENOrdering Facility: [facility] Address: [address] [place] [address] Performed By: #### 5 8410-2 ####[facility]ATORYCLIA [id number] [address] [place] Hemoglobin (Bld) [Mass/Vol] 8.8 g/dL Low 13.0-17.0 [facility] Comment on above: Order Comment: Speci men Type: BLOOD SPECIMENOrdering Facility: [facility] Address: [address] [place] [address] Performed By: #### 5 8410-2 ####[facility]ATORYCLIA [id number] [address] [place] MCH (RBC) [Entitic mass] 27.4 pg Normal 26.0-34.0 [facility] Comment on above: Order Comment: Speci men Type: BLOOD SPECIMENOrdering Facility: [facility] Address: [address] [place] [address] Performed By: #### 5 8410-2 ####[facility]ATORYCLIA [id number] [place] [address] [place] MCHC (RBC) [Mass/Vol] 31.1 g/dL Normal 30.5-36.0 [facility] Comment on above: Order Comment: Speci men Type: BLOOD SPECIMENOrdering Facility: [facility] Address: [address] [place] [address] Performed By: #### 5 8410-2 ####[facility]ATORYCLIA [id number] [address] [place] MCV (RBC) [Entitic vol] 88.2 fL Normal 80.0-100.0 [facility] Comment on above: Order Comment: Speci men Type: BLOOD SPECIMENOrdering Facility: [facility] Address: [address] [place] [address] Performed By: #### 5 8410-2 ####[facility]ATORYCLIA [id number] [address] [place] Nucleated RBC (Bld) [#/Vol] 10*3/uL Normal <0.01 [facility] Comment on above: Order Comment: Speci men Type: BLOOD SPECIMENOrdering Facility: [facility] Address: [address] [place] [address] Performed By: #### 5 8410-2 ####[facility]ORATORYCLIA [id number] [address] [place] Platelet mean volume (Bld) [Entitic vol] 9.7 fL Normal 9.0-12.7 [facility] Comment on above: Order Comment: Speci men Type: BLOOD SPECIMENOrdering Facility: [facility] Address: [address] [place] [address] Performed By: #### 5 8410-2 ####[facility]ATORYCLIA [id number] [address] Platelets (Bld) [#/Vol] 315 10*3/uL Normal 150-400 [facility] Comment on above: Order Comment: Speci men Type: BLOOD SPECIMENOrdering Facility: [facility] Address: [address] [place] [address] Performed By: #### 5 8410-2 ####[facility]ATORYCLIA [id number] [address] STATES OF [facility] RBC (Bld) [#/Vol] 3.21 10*6/uL Low 4.20-6.00 [facility] Comment on above: Order Comment: Speci men Type: BLOOD SPECIMENOrdering Facility: [facility] Address: [address] [place] [address] Performed By: #### 5 8410-2 ####[facility]ATORYCLIA [id number] [address] WBC (Bld) [#/Vol] 9.18 10*3/uL Normal 3.70-11.00 [facility] Comment on above: Order Comment: Speci men Type: BLOOD SPECIMENOrdering Facility: [facility] Address: [address] [place] [address] Performed By: #### 5 8410-2 ####[facility]ATORYCLIA [id number] [address] CONSULT PROGon 07-11-2021 CONSULT PROG Normal [facility] CT BRAIN WO IVCONon 07-12-19 CT BRAIN WO IVCON Normal [facility] Magnesium SerPl-mCncon 07-11 Magnesium [Mass/Vol] 2.1 mg/dL Normal 1.7-2.3 [facility] Comment on above: Order Comment: Speci men Type: BLOOD SPECIMENOrdering Facility: [facility] Address: [address] [place] [address] Performed By: #### 1 9123-9, 2777-1 ####[facility]ATORYCLIA [id number] [address] NURSING PROGon 07-11-2021 NURSING PROG Normal [facility] NURSING PROG Normal [facility] Phosphate SerPl-mCncon 07-11 Phosphate [Mass/Vol] 3.4 mg/dL Normal 2.7-4.8 [facility] Comment on above: Order Comment: Speci men Type: BLOOD SPECIMENOrdering Facility: [facility] Address: [address] [place] [address] Performed By: #### 1 9123-9, 2777-1 ####[facility]ATORYCLIA [id number] [address] THERAPY NTon 07-11-2021 THERAPY NT Normal [facility] Vancomycin random [Mass/Vol] on 07-11-2021 Vancomycin [Mass/Vol] 28.6 ug/mL High 10.0-20.0 [facility] Comment on above: Order Comment: Speci men Type: BLOOD SPECIMENOrdering Facility: [facility] Address: [address] [place] [address] Result Comment: Refe rence ranges and high/low indicator flags are provided as general guidelines only. The treating physician must determine appropriate target levels/dosing based on the specific clinical situation. Performed By: #### 4 091-5 ####[facility]ORATORYCLIA [id number] [address] aPTT PPPon 07-11-2021 aPTT Coag (PPP) [Time] 62.0 s High 23.0-32.4 [facility] Comment on above: Order Comment: Speci men Type: BLOOD SPECIMENOrdering Facility: [facility] Address: [address] [place] [address] Performed By: #### 1 4979-9 ####[facility] LABORATORYCLIA [id number] [address] aPTT Coag (PPP) [Time] 52.7 s High 23.0-32.4 [facility] Comment on above: Order Comment: Speci men Type: BLOOD SPECIMENOrdering Facility: [facility] Address: [address] [place] [address] Performed By: #### 1 4979-9 ####[facility] LABORATORYCLIA [id number] [place] [address] [place] aPTT Coag (PPP) [Time] 29.9 s Normal 23.0-32.4 [facility] Comment on above: Order Comment: Speci men Type: BLOOD SPECIMENOrdering Facility: [facility] Address: [address] [place] [address] Performed By: #### 1 4979-9 ####[facility] LABORATORYCLIA [id number] [place] [address] [place] Basic metabolic 2000 panelon 07-10-2021 Anion gap [Moles/Vol] 14 mmol/L Normal 9-18 [facility] Comment on above: Order Comment: Speci men Type: BLOOD SPECIMENOrdering Facility: [facility] Address: [address] [place] [address] Performed By: #### 1 9123-9, 2777-1, 24587-1 ####[facility]ENTERCLIA [id number] [place] [address] [place] Calcium [Mass/Vol] 8.5 mg/dL Normal 8.5-10.2 [facility] Comment on above: Order Comment: Speci men Type: BLOOD SPECIMENOrdering Facility: [facility] Address: [address] [place] [address] Performed By: #### 1 9123-9, 2777-1, 08929-1 ####[facility]ORATORYCLIA [id number] [address] [place] Chloride [Moles/Vol] 100 mmol/L Normal 97-105 [facility] Comment on above: Order Comment: Speci men Type: BLOOD SPECIMENOrdering Facility: [facility] Address: [address] [place] [address] Performed By: #### 1 9123-9, 2777-1, 61311-4 ####[facility]ENTERCLIA [id number] [address] STATES OF [facility] CO2 [Moles/Vol] 27 mmol/L Normal 22-30 [facility] Comment on above: Order Comment: Speci men Type: BLOOD SPECIMENOrdering Facility: [facility] Address: [address] [place] [address] Performed By: #### 1 9123-9, 2777, 92178-9 ####[facility]ENTERCLIA [id number] [address] Creatinine [Mass/Vol] 0.66 mg/dL Low 0.73-1.22 [facility] Comment on above: Order Comment: Speci men Type: BLOOD SPECIMENOrdering Facility: [facility] Address: [address] [place] [address] Performed By: #### 1 9123-9, 2777, 21344-9 ####[facility] POINTIA [id number] [address] ESTIMATED GLOMERULAR FILTRATION RATE 102 mL/min/1.73m??? Normal >=60 [facility] Comment on above: Order Comment: Speci men Type: BLOOD SPECIMENOrdering Facility: [facility] Address: [address] [place] [address] Result Comment: Luzmaria mated Glomerular Filtration Rate [...] GFR. Performed By: #### 1 9123-9, 2777-1, 48361-7 ####[facility]ORATORYCLIA [id number] [place] [address] [place] Glucose [Mass/Vol] 93 mg/dL Normal 74-99 [facility] Comment on above: Order Comment: Shira feldman Type: BLOOD SPECIMENOrdering Facility: [facility] Address: [address] [place], [place] [address] Result Comment: The [place] Diabetes [employer] (ADA) provides guidance for cutoff [...] Standards of Medical Care in Diabetes 2016, [place] [employer]. Diabetes Care. 2016.39(Suppl 1). Performed By: #### 1 9123-9, 2777-, 16034-9 ####[facility]ORATORYCLIA [id number] [place] [address] [place] Potassium [Moles/Vol] 3.5 mmol/L Low 3.7-5.1 [facility] Comment on above: Order Comment: Shira feldman Type: BLOOD SPECIMENOrdering Facility: [facility] Address: [address] [place], [place] [address] Performed By: #### 1 9123-9, 2777-, 48632-5 ####[facility] LABORATORYCLIA [id number] [place] [address] [place] Sodium [Moles/Vol] 141 mmol/L Normal 136-144 [facility] Comment on above: Order Comment: Shira feldman Type: BLOOD SPECIMENOrdering Facility: [facility] Address: [address] [place], [place] [address] Performed By: #### 1 9123-9, 2777-, 81488-0 ####[facility]ORATORYCLIA [id number] [place] [address] [place] Urea nitrogen [Mass/Vol] 11 mg/dL Normal 9-24 [facility] Comment on above: Order Comment: Speci men Type: BLOOD SPECIMENOrdering Facility: [facility] Address: [address] [place] [address] Performed By: #### 1 9123-9, 2777-1, 36938-6 ####[facility]ORATORYCLIA [id number] [address] STATES [facility] CBC panel Auto (Bld)on 07-10 Erythrocyte distribution width (RBC) [Ratio] 16.2 % High 11.5-15.0 [facility] Comment on above: Order Comment: Speci men Type: BLOOD SPECIMENOrdering Facility: [facility] Address: [address] [place] [address] Performed By: #### 5 8410-2 ####[facility]ORATORYCLIA [id number] [address] STATES [facility] Hematocrit (Bld) [Volume fraction] 30.6 % Low 39.0-51.0 [facility] Comment on above: Order Comment: Speci men Type: BLOOD SPECIMENOrdering Facility: [facility] Address: [address] [place] [address] Performed By: #### 5 8410-2 ####[facility]ORATORYCLIA [id number] [address] STATES OF [facility] Hemoglobin (Bld) [Mass/Vol] 9.6 g/dL Low 13.0-17.0 [facility] Comment on above: Order Comment: Speci men Type: BLOOD SPECIMENOrdering Facility: [facility] Address: [address] [place] [address] Performed By: #### 5 8410-2 ####[facility]ORATORYCLIA [id number] [address] MCH (RBC) [Entitic mass] 28.3 pg Normal 26.0-34.0 [facility] Comment on above: Order Comment: Speci men Type: BLOOD SPECIMENOrdering Facility: [facility] Address: [address] [place] [address] Performed By: #### 5 8410-2 ####[facility]ORATORYCLIA [id number] [address] MCHC (RBC) [Mass/Vol] 31.4 g/dL Normal 30.5-36.0 [facility] Comment on above: Order Comment: Speci men Type: BLOOD SPECIMENOrdering Facility: [facility] Address: [address] [place] [address] Performed By: #### 5 8410-2 ####[facility]ORATORYCLIA [id number] [address] [place] MCV (RBC) [Entitic vol] 90.3 fL Normal 80.0-100.0 [facility] Comment on above: Order Comment: Speci men Type: BLOOD SPECIMENOrdering Facility: [facility] Address: [address] [place] [address] Performed By: #### 5 8410-2 ####[facility]ORATORYCLIA [id number] [address] OF [facility] Nucleated RBC (Bld) [#/Vol] 10*3/uL Normal <0.01 [facility] Comment on above: Order Comment: Speci men Type: BLOOD SPECIMENOrdering Facility: [facility] Address: [address] [place] [address] Performed By: #### 5 8410-2 ####[facility]ORATORYCLIA [id number] [address] Platelet mean volume (Bld) [Entitic vol] 9.7 fL Normal 9.0-12.7 [facility] Comment on above: Order Comment: Speci men Type: BLOOD SPECIMENOrdering Facility: [facility] Address: [address] [place] [address] Performed By: #### 5 8410-2 ####[facility]ORATORYCLIA [id number] [address] [place] Platelets (Bld) [#/Vol] 306 10*3/uL Normal 150-400 [facility] Comment on above: Order Comment: Speci men Type: BLOOD SPECIMENOrdering Facility: [facility] Address: [address] [place] [address] Performed By: #### 5 8410-2 ####[facility]ATORYCLIA [id number] [place] [address] [place] RBC (Bld) [#/Vol] 3.39 10*6/uL Low 4.20-6.00 [facility] Comment on above: Order Comment: Speci men Type: BLOOD SPECIMENOrdering Facility: [facility] Address: [address] [place] [address] Performed By: #### 5 8410-2 ####[facility]ORATORYCLIA [id number] [address] STATES OF [facility] WBC (Bld) [#/Vol] 9.81 10*3/uL Normal 3.70-11.00 [facility] Comment on above: Order Comment: Speci men Type: BLOOD SPECIMENOrdering Facility: [facility] Address: [address] [place] [address] Performed By: #### 5 8410-2 ####[facility]ORATORYCLIA [id number] [address] [place] CONSULTon 07-10-2021 CONSULT Normal [facility] CONSULT Normal [facility] Magnesium SerPl-mCncon 07-10 Magnesium [Mass/Vol] 1.9 mg/dL Normal 1.7-2.3 [facility] Comment on above: Order Comment: Speci men Type: BLOOD SPECIMENOrdering Facility: [facility] Address: [address] [place] [address] Performed By: #### 1 9123-9, 2777-1, 91253-6 ####[facility]ATORYCLIA [id number] [place] [address] [place] NURSING PROGon 07-10-2021 NURSING PROG Normal [facility] NURSING PROG Normal [facility] NUTRITIONon 07-10-2021 NUTRITION Normal [facility] Phosphate SerPl-mCncon 07-10 Phosphate [Mass/Vol] 3.6 mg/dL Normal 2.7-4.8 [facility] Comment on above: Order Comment: Speci men Type: BLOOD SPECIMENOrdering Facility: [facility] Address: [address] [place] [address] Performed By: #### 1 9123-9, 2777-1, 02941-6 ####[facility]ATORYCLIA [id number] [place] [address] [place] US DVT LOWER BILon US DVT LOWER RAINER Normal [facility] aPTT PPPon 07-10-2021 aPTT Coag (PPP) [Time] 28.8 s Normal 23.0-32.4 [facility] Comment on above: Order Comment: Speci men Type: BLOOD SPECIMENOrdering Facility: [facility] Address: [address] [place] [address] Performed By: #### 1 4979-9 ####[facility]ATORYCLIA [id number] [address] aPTT Coag (PPP) [Time] 28.4 s Normal 23.0-32.4 [facility] Comment on above: Order Comment: Speci men Type: BLOOD SPECIMENOrdering Facility: [facility] Address: [address] [place] [address] Performed By: #### 1 4979-9 ####[facility]ATORYCLIA [id number] [place] [address] [place] ALLIED HEALTHon 07-09-2021 ALLIED HEALTH Normal [facility] Basic metabolic 2000 panelon 07-09-2021 Anion gap [Moles/Vol] 9 mmol/L Normal 9-18 [facility] Comment on above: Order Comment: Speci men Type: BLOOD SPECIMENOrdering Facility: [facility] Address: [address] [place] [address] Performed By: #### 1 9123-9, 2777, 04269-1 ####[facility]ORATORYCLIA [id number] [place] [address] [place] Calcium [Mass/Vol] 8.3 mg/dL Low 8.5-10.2 [facility] Comment on above: Order Comment: Speci men Type: BLOOD SPECIMENOrdering Facility: [facility] Address: [address] [place] [address] Performed By: #### 1 9123-9, 27711-04, 94467-5 ####[facility]ATORYCLIA [id number] [place] [address] [place] Chloride [Moles/Vol] 100 mmol/L Normal 97-105 [facility] Comment on above: Order Comment: Speci men Type: BLOOD SPECIMENOrdering Facility: [facility] Address: [address] [place] [address] Performed By: #### 1 9123-9, 27711-04, 69739-3 ####[facility]ATORYCLIA [id number] [address] [place] CO2 [Moles/Vol] 29 mmol/L Normal 22-30 [facility] Comment on above: Order Comment: Speci men Type: BLOOD SPECIMENOrdering Facility: [facility] Address: [address] [place] [address] Performed By: #### 1 9123-9, 2776-05, 72605-5 ####[facility]ATORYCLIA [id number] [place] [address] [place] Creatinine [Mass/Vol] 0.61 mg/dL Low 0.73-1.22 [facility] Comment on above: Order Comment: Speci men Type: BLOOD SPECIMENOrdering Facility: [facility] Address: [address] [place] [address] Performed By: #### 1 9123-9, 27711-04, 61774-7 ####[facility]ORATORYCLIA [id number] [place] [address] [place] ESTIMATED GLOMERULAR FILTRATION RATE 104 mL/min/1.73m??? Normal >=60 [facility] Comment on above: Order Comment: Shira feldman Type: BLOOD SPECIMENOrdering Facility: [facility] Address: [address] [place], [place] [address] Result Comment: Luzmaria mated Glomerular Filtration Rate [...] GFR. Performed By: #### 1 9123-9, 2777-1, 94455-8 ####[facility]ENTERCLIA [id number] [place] [address] [place] Glucose [Mass/Vol] 106 mg/dL High 74-99 [facility] Comment on above: Order Comment: Shira feldman Type: BLOOD SPECIMENOrdering Facility: [facility] Address: [address] [place] [address] Result Comment: The [place] Diabetes Association (ADA) provides guidance for cutoff [...] Standards of Medical Care in Diabetes 2016, [place] [employer]. Diabetes Care. 2016.39(Suppl 1). Performed By: #### 1 9123-9, 2777-1, 79503-8 ####[facility]ORATORYCLIA [id number] [place] [address] [place] Potassium [Moles/Vol] 3.6 mmol/L Low 3.7-5.1 [facility] Comment on above: Order Comment: Speci men Type: BLOOD SPECIMENOrdering Facility: [facility] Address: [address] [place] [address] Performed By: #### 1 9123-9, 2777-, 25081-0 ####[facility]ORATORYCLIA [id number] [address] STATES OF [facility] Sodium [Moles/Vol] 138 mmol/L Normal 136-144 [facility] Comment on above: Order Comment: Speci men Type: BLOOD SPECIMENOrdering Facility: [facility] Address: [address] [place] [address] Performed By: #### 1 9123-9, 27711-04, 85985-2 ####[facility]ATORYCLIA [id number] [address] STATES OF [facility] Urea nitrogen [Mass/Vol] 12 mg/dL Normal 9-24 [facility] Comment on above: Order Comment: Speci men Type: BLOOD SPECIMENOrdering Facility: [facility] Address: [address] [place] [address] Performed By: #### 1 9123-9, 27711-04, 99545-6 ####[facility]ATORYCLIA [id number] [address] STATES OF [facility] CBC panel Auto (Bld)on 07-09 Erythrocyte distribution width (RBC) [Ratio] 16.2 % High 11.5-15.0 [facility] Comment on above: Order Comment: Speci men Type: BLOOD SPECIMENOrdering Facility: [facility] Address: [address] [place] [address] Performed By: #### 5 8410-2 ####[facility]ATORYCLIA [id number] [address] Hematocrit (Bld) [Volume fraction] 29.0 % Low 39.0-51.0 [facility] Comment on above: Order Comment: Speci men Type: BLOOD SPECIMENOrdering Facility: [facility] Address: [address] [place] [address] Performed By: #### 5 8410-2 ####[facility]ATORYCLIA [id number] [address] Hemoglobin (Bld) [Mass/Vol] 8.8 g/dL Low 13.0-17.0 [facility] Comment on above: Order Comment: Speci men Type: BLOOD SPECIMENOrdering Facility: [facility] Address: [address] [place] [address] Performed By: #### 5 8410-2 ####[facility]ATORYCLIA [id number] [address] MCH (RBC) [Entitic mass] 27.0 pg Normal 26.0-34.0 [facility] Comment on above: Order Comment: Speci men Type: BLOOD SPECIMENOrdering Facility: [facility] Address: [address] [place] [address] Performed By: #### 5 8410-2 ####[facility]ATORYCLIA [id number] [address] MCHC (RBC) [Mass/Vol] 30.3 g/dL Low 30.5-36.0 [facility] Comment on above: Order Comment: Speci men Type: BLOOD SPECIMENOrdering Facility: [facility] Address: [address] [place] [address] Performed By: #### 5 8410-2 ####[facility]ATORYCLIA [id number] [address] MCV (RBC) [Entitic vol] 89.0 fL Normal 80.0-100.0 [facility] Comment on above: Order Comment: Speci men Type: BLOOD SPECIMENOrdering Facility: [facility] Address: [address] [place] [address] Performed By: #### 5 8410-2 ####[facility]ATORYCLIA [id number] [address] Nucleated RBC (Bld) [#/Vol] 10*3/uL Normal <0.01 [facility] Comment on above: Order Comment: Speci men Type: BLOOD SPECIMENOrdering Facility: [facility] Address: [address] [place], [place] [address] Performed By: #### 5 8410-2 ####[facility]ATORYCLIA [id number] [address] [place] Platelet mean volume (Bld) [Entitic vol] 9.8 fL Normal 9.0-12.7 [facility] Comment on above: Order Comment: Speci men Type: BLOOD SPECIMENOrdering Facility: [facility] Address: [address] [place] [address] Performed By: #### 5 8410-2 ####[facility]ATORYCLIA [id number] [address] [place] Platelets (Bld) [#/Vol] 281 10*3/uL Normal 150-400 [facility] Comment on above: Order Comment: Speci men Type: BLOOD SPECIMENOrdering Facility: [facility] Address: [address] [place] [address] Performed By: #### 5 8410-2 ####[facility]ATORYCLIA [id number] [place] [address] [place] RBC (Bld) [#/Vol] 3.26 10*6/uL Low 4.20-6.00 [facility] Comment on above: Order Comment: Speci men Type: BLOOD SPECIMENOrdering Facility: [facility] Address: [address] [place] [address] Performed By: #### 5 8410-2 ####[facility]ATORYCLIA [id number] [address] [place] WBC (Bld) [#/Vol] 9.12 10*3/uL Normal 3.70-11.00 [facility] Comment on above: Order Comment: Speci men Type: BLOOD SPECIMENOrdering Facility: [facility] Address: [address] [place] [address] Performed By: #### 5 8410-2 ####[facility]ATORYCLIA [id number] [address] OF [facility] CONSULT PROGon 07-09-2021 CONSULT PROG Normal [facility] CONSULT PROG Normal [facility] HISTORY PHYSICALon HISTORY PHYSICAL Normal [facility] Magnesium SerPl-mCncon 07-09 Magnesium [Mass/Vol] 1.9 mg/dL Normal 1.7-2.3 [facility] Comment on above: Order Comment: Speci men Type: BLOOD SPECIMENOrdering Facility: [facility] Address: [address] [place] [address] Performed By: #### 1 9123-9, 2777-1, 12895-2 ####[facility]ATORYCLIA [id number] [address] Phosphate SerPl-ncon 07-09 Phosphate [Mass/Vol] 3.6 mg/dL Normal 2.7-4.8 [facility] Comment on above: Order Comment: Speci men Type: BLOOD SPECIMENOrdering Facility: [facility] Address: [address] [place] [address] Performed By: #### 1 9123-9, 2777-1, 49342-5 ####[facility]ATORYCLIA [id number] [address] [place] THERAPY NTon 07-09-2021 THERAPY NT Normal [facility] XR ABDOMEN 1V SUPINEon 07-09 XR ABDOMEN 1V SUPINE Normal [facility] ALLIED HEALTHon 07-08-2021 ALLIED HEALTH Normal [facility] ALLIED HEALTH Normal [facility] ALLIED HEALTH Normal [facility] ANES PRE-OPon 07-08-2021 ANES PRE-OP Normal [facility] BRIEF OP NOTon 07-08-2021 BRIEF OP NOT Normal [facility] Bacteria Bld Culton 07-09-19 22 Bacteria identified Cx Nom (Bld) CULTURE, BLOOD: No growth 5 days Normal [facility] Comment on above: Performed By: #### 6 00-7 ####[facility]ATORYCLIA [id number] [address] Bacteria identified Cx Nom (Bld) CULTURE, BLOOD: No growth 5 days [facility] Comment on above: Performed By: #### 6 00-7 ####[facility]ATORYCLIA [id number] [address] Bacteria CSF Culton 07-09-19 22 Bacteria identified Cx Nom (CSF) CULTURE, CSF: No growth 14 days GRAM STAIN: No organisms seen No Polymorphonuclear Leukocytes Few Red Blood Cells Gram stain performed on cytospun specimen. Normal [facility] Comment on above: Performed By: #### 6 06-4 ####[facility]ATORYCLIA [id number] [address] Bacteria Ur Culton 2 Bacteria identified Cx Nom (U) ORGANISM ID: 1 10,000 -<50,000 CFU/ml Proteus species Insignificant colony count. No further workup. ORGANISM ID: 2 <10,000 CFU/ml Normal urogenital chris Normal [facility] Comment on above: Performed By: #### 6 30-4 ####[facility]ATORYCLIA [id number] [address] Bacteria Wnd Culton 07-09-19 22 Bacteria identified Cx Nom (Wound) ORGANISM ID: 1 Coagulase negative staphylococcus Growth in Enrichment Broth Only No susceptibility testing done. Call lab within 72 hours to initiate work-up if clinically indicated. GRAM STAIN: Account credited. Not performed on this specimen type. [facility] Comment on above: Performed By: #### 6 462-6 ####[facility]ATORYCLIA [id number] [address] Bacteria identified Cx Nom (Wound) ORGANISM ID: 1 Rare Coagulase negative staphylococcus No susceptibility testing done. Call lab within 72 hours to initiate work-up if clinically indicated. GRAM STAIN: Account credited. Not performed on this specimen type. [facility] Comment on above: Performed By: #### 6 462-6 ####[facility]ATORYCLIA [id number] [place] [address] [place] Bacteria identified Cx Nom (Wound) CULTURE, INTRAOPERATIVE HARDWARE: No growth 14 days GRAM STAIN: Account credited. Not performed on this specimen type. Normal [facility] Comment on above: Performed By: #### 6 462-6 ####[facility]ATORYCLIA [id number] [place] [address] [place] Basic metabolic 2000 panelon 07-08-2021 Anion gap [Moles/Vol] 9 mmol/L Normal 9-18 [facility] Comment on above: Order Comment: Speci men Type: BLOOD SPECIMENOrdering Facility: [facility] Address: [address] [place] [address] Performed By: #### 2 4321-2 ####[facility] LABORATORYCLIA [id number] [place] [address] [place] Calcium [Mass/Vol] 8.5 mg/dL Normal 8.5-10.2 [facility] Comment on above: Order Comment: Speci men Type: BLOOD SPECIMENOrdering Facility: [facility] Address: [address] [place] [address] Performed By: #### 2 4321-2 ####[facility] LABORATORYCLIA [id number] [address] [place] Chloride [Moles/Vol] 98 mmol/L Normal 97-105 [facility] Comment on above: Order Comment: Speci men Type: BLOOD SPECIMENOrdering Facility: [facility] Address: [address] [place] [address] Performed By: #### 2 4321-2 ####[facility] LABORATORYCLIA [id number] [address] [place] CO2 [Moles/Vol] 31 mmol/L High 22-30 [facility] Comment on above: Order Comment: Speci men Type: BLOOD SPECIMENOrdering Facility: [facility] Address: [address] [place] [address] Performed By: #### 2 4321-2 ####[facility] LABORATORYCLIA [id number] [address] STATES OF [facility] Creatinine [Mass/Vol] 0.64 mg/dL Low 0.73-1.22 [facility] Comment on above: Order Comment: Shira fracnia Type: BLOOD SPECIMENOrdering Facility: [facility] Address: [address] [place] [address] Performed By: #### 2 4321-2 ####[facility] LABORATORYCLIA [id number] [address] ESTIMATED GLOMERULAR FILTRATION RATE 102 mL/min/1.73m??? Normal >=60 [facility] Comment on above: Order Comment: Shira feldman Type: BLOOD SPECIMENOrdering Facility: [facility] Address: [address] [place] [address] Result Comment: Luzmaria mated Glomerular Filtration Rate [...] 2 4321-2 ####[facility] LABORATORYCLIA [id number] [address] [place] Glucose [Mass/Vol] 114 mg/dL High 74-99 [facility] Comment on above: Order Comment: Johncara feldman Type: BLOOD SPECIMENOrdering Facility: [facility] Address: [address] [place] [address] Result Comment: The [place] Diabetes Association (ADA) provides guidance for cutoff [...] Standards of Medical Care in Diabetes 2016, [place] [employer]. Diabetes Care. 2016.39(Suppl 1). Performed By: #### 2 4321-2 ####[facility]ORATORYCLIA [id number] [place] [address] [place] Potassium [Moles/Vol] 3.4 mmol/L Low 3.7-5.1 [facility] Comment on above: Order Comment: Speci men Type: BLOOD SPECIMENOrdering Facility: [facility] Address: [address] [place] [address] Performed By: #### 2 4321-2 ####[facility] LABORATORYCLIA [id number] [address] STATES [facility] Sodium [Moles/Vol] 138 mmol/L Normal 136-144 [facility] Comment on above: Order Comment: Speci men Type: BLOOD SPECIMENOrdering Facility: [facility] Address: [address] [place] [address] Performed By: #### 2 4321-2 ####[facility] LABORATORYCLIA [id number] [address] STATES [facility] Urea nitrogen [Mass/Vol] 14 mg/dL Normal 9-24 [facility] Comment on above: Order Comment: Speci men Type: BLOOD SPECIMENOrdering Facility: [facility] Address: [address] [address] Performed By: #### 2 4321-2 ####[facility]ATORYCLIA [id number] [place] [address] [place] CBC W Auto Differential pane l (Bld)on 07-08-2021 Basophils (Bld) [#/Vol] 0.05 10*3/uL Normal <0.11 [facility] Comment on above: Order Comment: Speci men Type: BLOOD SPECIMENOrdering Facility: [facility] Address: [address] [address] Performed By: #### 5 7021-8 ####[facility]ORATORYCLIA [id number] [address] [place] Basophils/100 WBC (Bld) 0.4 % Normal [facility] Comment on above: Order Comment: Speci men Type: BLOOD SPECIMENOrdering Facility: [facility] Address: [address] [place] [address] Performed By: #### 5 7021-8 ####[facility]ORATORYCLIA [id number] [address] [place] Differential cell count method Nom (Bld) Auto Normal [facility] Comment on above: Order Comment: Speci men Type: BLOOD SPECIMENOrdering Facility: [facility] Address: [address] [place] [address] Performed By: #### 5 7021-8 ####[facility]ORATORYCLIA [id number] [address] [place] Eosinophils (Bld) [#/Vol] 0.68 10*3/uL High <0.46 [facility] Comment on above: Order Comment: Speci men Type: BLOOD SPECIMENOrdering Facility: [facility] Address: [address] [place] [address] Performed By: #### 5 7021-8 ####[facility]ORATORYCLIA [id number] [address] Eosinophils/100 WBC (Bld) 5.4 % Normal [facility] Comment on above: Order Comment: Speci men Type: BLOOD SPECIMENOrdering Facility: [facility] Address: [address] [place] [address] Performed By: #### 5 7021-8 ####[facility]ORATORYCLIA [id number] [address] [place] Erythrocyte distribution width (RBC) [Ratio] 16.3 % High 11.5-15.0 [facility] Comment on above: Order Comment: Speci men Type: BLOOD SPECIMENOrdering Facility: [facility] Address: [address] [address] Performed By: #### 5 7021-8 ####[facility]ORATORYCLIA [id number] [address] Hematocrit (Bld) [Volume fraction] 35.7 % Low 39.0-51.0 [facility] Comment on above: Order Comment: Speci men Type: BLOOD SPECIMENOrdering Facility: [facility] Address: [address] [place] [address] Performed By: #### 5 7021-8 ####[facility]ORATORYCLIA [id number] [address] Hemoglobin (Bld) [Mass/Vol] 10.8 g/dL Low 13.0-17.0 [facility] Comment on above: Order Comment: Speci men Type: BLOOD SPECIMENOrdering Facility: [facility] Address: [address] [place] [address] Performed By: #### 5 7021-8 ####[facility]ORATORYCLIA [id number] [address] IMMATURE GRAN % 0.4 % Normal [facility] Comment on above: Order Comment: Speci men Type: BLOOD SPECIMENOrdering Facility: [facility] Address: [address] [place] [address] Performed By: #### 5 7021-8 ####[facility]ORATORYCLIA [id number] [address] IMMATURE GRAN ABS 0.05 k/uL Normal <0.10 [facility] Comment on above: Order Comment: Speci men Type: BLOOD SPECIMENOrdering Facility: [facility] Address: [address] [place] [address] Performed By: #### 5 7021-8 ####[facility] LABORATORYCLIA [id number] [address] OF [facility] Lymphocytes (Bld) [#/Vol] 1.85 10*3/uL Normal 1.00-4.00 [facility] Comment on above: Order Comment: Speci men Type: BLOOD SPECIMENOrdering Facility: [facility] Address: [address] [place] [address] Performed By: #### 5 7021-8 ####[facility]ORATORYCLIA [id number] [address] Lymphocytes/100 WBC (Bld) 14.7 % Normal [facility] Comment on above: Order Comment: Speci men Type: BLOOD SPECIMENOrdering Facility: [facility] Address: [address] [place] [address] Performed By: #### 5 7021-8 ####[facility]ORATORYCLIA [id number] [address] MCH (RBC) [Entitic mass] 27.1 pg Normal 26.0-34.0 [facility] Comment on above: Order Comment: Speci men Type: BLOOD SPECIMENOrdering Facility: [facility] Address: [address] [place] [address] Performed By: #### 5 7021-8 ####[facility]ORATORYCLIA [id number] [address] MCHC (RBC) [Mass/Vol] 30.3 g/dL Low 30.5-36.0 [facility] Comment on above: Order Comment: Speci men Type: BLOOD SPECIMENOrdering Facility: [facility] Address: [address] [place] [address] Performed By: #### 5 7021-8 ####[facility]ORATORYCLIA [id number] [address] MCV (RBC) [Entitic vol] 89.7 fL Normal 80.0-100.0 [facility] Comment on above: Order Comment: Speci men Type: BLOOD SPECIMENOrdering Facility: [facility] Address: [address] [place] [address] Performed By: #### 5 7021-8 ####[facility] LABORATORYCLIA [id number] [address] [place] Monocytes (Bld) [#/Vol] 0.87 10*3/uL High <0.87 [facility] Comment on above: Order Comment: Speci men Type: BLOOD SPECIMENOrdering Facility: [facility] Address: [address] [place] [address] Performed By: #### 5 7021-8 ####[facility]ORATORYCLIA [id number] [place] [address] [place] Monocytes/100 WBC (Bld) 6.9 % Normal [facility] Comment on above: Order Comment: Speci men Type: BLOOD SPECIMENOrdering Facility: [facility] Address: [address] [place] [address] Performed By: #### 5 7021-8 ####[facility]ORATORYCLIA [id number] [address] [place] Neutrophils (Bld) [#/Vol] 9.05 10*3/uL High 1.45-7.50 [facility] Comment on above: Order Comment: Speci men Type: BLOOD SPECIMENOrdering Facility: [facility] Address: [address] [place] [address] Performed By: #### 5 7021-8 ####[facility]ORATORYCLIA [id number] [address] [place] Neutrophils/100 WBC (Bld) 72.2 % Normal [facility] Comment on above: Order Comment: Speci men Type: BLOOD SPECIMENOrdering Facility: [facility] Address: [address] [place] [address] Performed By: #### 5 7021-8 ####[facility]ORATORYCLIA [id number] [place] [address] [place] Nucleated RBC (Bld) [#/Vol] 10*3/uL Normal <0.01 [facility] Comment on above: Order Comment: Speci men Type: BLOOD SPECIMENOrdering Facility: [facility] Address: [address] [place] [address] Performed By: #### 5 7021-8 ####[facility]ORATORYCLIA [id number] [address] [place] Nucleated RBC/100 WBC (Bld) [Ratio] 0.0 /100 WBC Normal [facility] Comment on above: Order Comment: Speci men Type: BLOOD SPECIMENOrdering Facility: [facility] Address: [address] [place] [address] Performed By: #### 5 7021-8 ####[facility]ORATORYCLIA [id number] [address] [place] Platelet mean volume (Bld) [Entitic vol] 9.9 fL Normal 9.0-12.7 [facility] Comment on above: Order Comment: Speci men Type: BLOOD SPECIMENOrdering Facility: [facility] Address: [address] [place] [address] Performed By: #### 5 7021-8 ####[facility]ORATORYCLIA [id number] [address] [place] Platelets (Bld) [#/Vol] 335 10*3/uL Normal 150-400 [facility] Comment on above: Order Comment: Speci men Type: BLOOD SPECIMENOrdering Facility: [facility] Address: [address] [place] [address] Performed By: #### 5 7021-8 ####[facility]ORATORYCLIA [id number] [address] [place] RBC (Bld) [#/Vol] 3.98 10*6/uL Low 4.20-6.00 [facility] Comment on above: Order Comment: Speci men Type: BLOOD SPECIMENOrdering Facility: [facility] Address: [address] [place] [address] Performed By: #### 5 7021-8 ####[facility]ORATORYCLIA [id number] [address] [place] WBC (Bld) [#/Vol] 12.55 10*3/uL High 3.70-11.00 [facility] Comment on above: Order Comment: Speci men Type: BLOOD SPECIMENOrdering Facility: [facility] Address: [address] [place] [address] Performed By: #### 5 7021-8 ####[facility]ORATORYCLIA [id number] [address] [place] CK CREATINE KINASEon 022 CK [Catalytic activity/Vol] 72 U/L Normal 51-298 [facility] Comment on above: Order Comment: Speci men Type: BLOOD SPECIMENOrdering Facility: [facility] Address: [address] [place] [address] Performed By: #### C K, 91995-9 ####[facility]ORATORYCLIA [id number] [address] [place] CONSULT PROGon 07-08-2021 CONSULT PROG Normal [facility] CONSULT PROG Normal [facility] CSF MANUAL DIFFon 07-08-2021 DIF TTL, CSF 3 cells counted Normal [facility] Comment on above: Order Comment: Speci men Type: CEREBROSPINAL FLUIDOrdering Facility: [facility] Address: [address] [place] [address] Performed By: #### 3 4563-7, [id number] ####[facility]ORATORYCLIA [id number] [place] [address] [place] LYMPH%, CSF 33 % Low 50-90 [facility] Comment on above: Order Comment: Speci men Type: CEREBROSPINAL FLUIDOrdering Facility: [facility] Address: [address] [place] [address] Performed By: #### 3 4563-7, [id number] ####[facility]ORATORYCLIA [id number] [place] [address] [place] MONO%, CSF 67 % High 10-50 [facility] Comment on above: Order Comment: Speci men Type: CEREBROSPINAL FLUIDOrdering Facility: [facility] Address: [address] [place] [address] Performed By: #### 3 4563-7, [id number] ####[facility]ATORYCLIA [id number] [address] [place] CT ABD/PEL W IVCONon 022 CT ABD/PEL W IVCON Normal [facility] CT BRAIN WO IVCONon 07-09-[address] BRAIN WO IVCON Normal [facility] CT BRAIN WO IVCON Normal [facility] CT CHEST W IVCON PEon 2021 CT CHEST W IVCON PE Normal [facility] Cell count panel (CSF)on Clarity (CSF) Clear Normal Clear [facility] Comment on above: Order Comment: Speci men Type: CEREBROSPINAL FLUIDOrdering Facility: [facility] Address: [address] [place] [address] Performed By: #### 3 4563-7, [id number] ####[facility] LABORATORYCLIA [id number] [address] [place] Clarity (Unsp spec) Clear Normal Clear [facility] Comment on above: Order Comment: Speci men Type: CEREBROSPINAL FLUIDOrdering Facility: [facility] Address: [address] [place] [address] Performed By: #### 3 4563-7, [id number] ####[facility] LABORATORYCLIA [id number] [address] [place] Color (CSF) Colorless Normal Colorless [facility] Comment on above: Order Comment: Speci men Type: CEREBROSPINAL FLUIDOrdering Facility: [facility] Address: [address] [address] Performed By: #### 3 4563-7, [id number] ####[facility] LABORATORYCLIA [id number] [address] [place] Color (Spun CSF) Colorless Normal Colorless [facility] Comment on above: Order Comment: Speci men Type: CEREBROSPINAL FLUIDOrdering Facility: [facility] Address: [facility] [address] Performed By: #### 3 4563-7, [id number] ####[facility]ORATORYCLIA [id number] [address] CSF TU[employer] Normal [facility] Comment on above: Order Comment: Speci men Type: CEREBROSPINAL FLUIDOrdering Facility: [facility] Address: [address] [place] [address] Performed By: #### 3 4563-7, [id number] ####[facility]ATORYCLIA [id number] [address] RBC Manual cnt (CSF) [#/Vol] 94 cells/uL High 0-5 [facility] Comment on above: Order Comment: Speci men Type: CEREBROSPINAL FLUIDOrdering Facility: [facility] Address: [address] [place] [address] Performed By: #### 3 4563-7, [id number] ####[facility]ATORYCLIA [id number] [address] WBC Manual cnt (CSF) [#/Vol] 1 cells/uL Normal 0-5 [facility] Comment on above: Order Comment: Speci men Type: CEREBROSPINAL FLUIDOrdering Facility: [facility] Address: [address] [place] [address] Performed By: #### 3 4563-7, [id number] ####[facility]ORATORYCLIA [id number] [address] Comprehensive metabolic 2000 panelon 07-08-2021 Albumin [Mass/Vol] 3.6 g/dL Low 3.9-4.9 [facility] Comment on above: Order Comment: Speci men Type: BLOOD SPECIMENOrdering Facility: [facility] Address: [address] [place] [address] Performed By: #### C K, 47300-9 ####[facility]ATORYCLIA [id number] [address] [place] ALP [Catalytic activity/Vol] 125 U/L High 38-113 [facility] Comment on above: Order Comment: Speci men Type: BLOOD SPECIMENOrdering Facility: [facility] Address: [address] [address] Performed By: #### Eileen Valdivia, 54429-5 ####[facility]ATORYCLIA [id number] [address] [place] ALT With P-5'-P [Catalytic activity/Vol] 24 U/L Normal 10-54 [facility] Comment on above: Order Comment: Speci men Type: BLOOD SPECIMENOrdering Facility: [facility] Address: [address] [place] [address] Performed By: #### Eileen Valdivia, 80729-0 ####[facility] LABORATORYCLIA [id number] [address] OF [facility] Anion gap [Moles/Vol] 16 mmol/L Normal 9-18 [facility] Comment on above: Order Comment: Speci men Type: BLOOD SPECIMENOrdering Facility: [facility] Address: [address] [place] [address] Performed By: #### Eileen Valdivia, 96552-2 ####[facility]ORATORYCLIA [id number] [address] AST With P-5'-P [Catalytic activity/Vol] 21 U/L Normal 14-40 [facility] Comment on above: Order Comment: Speci men Type: BLOOD SPECIMENOrdering Facility: [facility] Address: [address] [place] [address] Performed By: #### Eileen Valdivia, 89512-6 ####[facility]ORATORYCLIA [id number] [address] [place] Bilirubin [Mass/Vol] 0.3 mg/dL Normal 0.2-1.3 [facility] Comment on above: Order Comment: Speci men Type: BLOOD SPECIMENOrdering Facility: [facility] Address: [address] [place] [address] Performed By: #### Eileen Valdivia, 35484-6 ####[facility]ORATORYCLIA [id number] [place] [address] [place] Calcium [Mass/Vol] 8.9 mg/dL Normal 8.5-10.2 [facility] Comment on above: Order Comment: Speci men Type: BLOOD SPECIMENOrdering Facility: [facility] Address: [address] [place] [address] Performed By: #### Eileen Valdivia, 68158-4 ####[facility] LABORATORYCLIA [id number] [place] [address] [place] Chloride [Moles/Vol] 96 mmol/L Low 97-105 [facility] Comment on above: Order Comment: Speci men Type: BLOOD SPECIMENOrdering Facility: [facility] Address: [address] [place] [address] Performed By: #### Eileen Valdivia, 85909-2 ####[facility] LABORATORYCLIA [id number] [address] [place] CO2 [Moles/Vol] 27 mmol/L Normal 22-30 [facility] Comment on above: Order Comment: Speci men Type: BLOOD SPECIMENOrdering Facility: [facility] Address: [address] [place] [address] Performed By: #### Eileen Valdivia, 45619-9 ####[facility] LABORATORYCLIA [id number] [place] [address] [place] Creatinine [Mass/Vol] 0.68 mg/dL Low 0.73-1.22 [facility] Comment on above: Order Comment: Speci men Type: BLOOD SPECIMENOrdering Facility: [facility] Address: [address] [place] [address] Performed By: #### Eileen Valdivia, 59473-0 ####[facility] LABORATORYCLIA [id number] [address] ESTIMATED GLOMERULAR FILTRATION RATE 101 mL/min/1.73m??? Normal >=60 [facility] Comment on above: Order Comment: Speci men Type: BLOOD SPECIMENOrdering Facility: [facility] Address: [address] [place] [address] Result Comment: Luzmaria mated Glomerular Filtration Rate [...] actual GFR. Performed By: #### Eileen Valdivia, 32252-8 ####[facility] LABORATORYCLIA [id number] [place] [address] [place] Glucose [Mass/Vol] 130 mg/dL High 74-99 [facility] Comment on above: Order Comment: Shira men Type: BLOOD SPECIMENOrdering Facility: [facility] Address: [address] [address] Result Comment: The [place] [employer] (ADA) provides guidance for cutoff [...] Standards of Medical Care in Diabetes 2016, [place] [employer]. Diabetes Care. 2016.39(Suppl 1). Performed By: #### Eileen Valdivia, 02909-7 ####[facility] LABORATORYCLIA [id number] [place] [address] [place] Potassium [Moles/Vol] 3.9 mmol/L Normal 3.7-5.1 [facility] Comment on above: Order Comment: Shira feldman Type: BLOOD SPECIMENOrdering Facility: [facility] Address: [address] Performed By: #### Eileen Valdivia, 54333-7 ####[facility] LABORATORYCLIA [id number] [place] [address] Protein [Mass/Vol] 7.0 g/dL Normal 6.3-8.0 [facility] Comment on above: Order Comment: Speci men Type: BLOOD SPECIMENOrdering Facility: [facility] Address: [address] [place] [address] Performed By: #### C Skip, 96848-9 ####[facility]ORATORYCLIA [id number] [address] STATES [facility] Sodium [Moles/Vol] 139 mmol/L Normal 136-144 [facility] Comment on above: Order Comment: Speci men Type: BLOOD SPECIMENOrdering Facility: [facility] [facility] Address: [address] [place] [address] Performed By: #### Eileen Valdivia, 39432-6 ####[facility] LABORATORYCLIA [id number] [address] STATES [facility] Urea nitrogen [Mass/Vol] 16 mg/dL Normal 9-24 [facility] Comment on above: Order Comment: Speci men Type: BLOOD SPECIMENOrdering Facility: [facility] Address: [address] [place] [address] Performed By: #### Eileen Valdivia, 16439-5 ####[facility]ORATORYCLIA [id number] [address] OF [facility] ED NOTEon 07-08-2021 ED NOTE HNO ID: [id number] Author: Lenora James RN Service: Emergency Medicine Author Type: Registered Nurse Type: ED Notes Filed: 07/08/2021 5:03 PM Note Text: Pt to OR with surgical team Normal [facility] ED NOTE HNO ID: [id number] Author: Lenora James RN Service: Emergency Medicine Author Type: Registered Nurse Type: ED Notes Filed: 07/08/2021 4:50 PM Note Text: OR team to get pt Normal [facility] ED NOTE HNO ID: [id number] Author: Lenora James RN Service: Emergency Medicine Author Type: Registered Nurse Type: ED Notes Filed: 07/08/2021 4:50 PM Note Text: Normal [facility] ED NOTE HNO ID: [id number] Author: Lenora James RN Service: Emergency Medicine Author Type: Registered Nurse Type: ED Notes Filed: 07/08/2021 4:50 PM Note Text: Spoke with presurg; pt to go to OR now [facility] ED NOTE HNO ID: [id number] Author: Lenora James RN Service: Emergency Medicine Author Type: Registered Nurse Type: ED Notes Filed: 07/08/2021 4:12 PM Note Text: Neurosurgery at beside [facility] ED NOTE HNO ID: [id number] Author: Lenora James RN Service: Emergency Medicine Author Type: Registered Nurse Type: ED Notes Filed: 07/08/2021 2:35 PM Note Text: respiratory aware of pt breathing treatments [facility] ED NOTE HNO ID: [id number] Author: Lisa Woo RN Service: ? Author Type: Registered Nurse Type: ED Notes Filed: 07/08/2021 2:20 PM Note Text: Xray notified pt is ready. [facility] ED NOTE HNO ID: [id number] Author: Lenora James RN Service: Emergency Medicine Author Type: Registered Nurse Type: ED Notes Filed: 07/08/2021 12:14 PM Note Text: CT notified regarding imaging orders placed [facility] ED NOTE Normal [facility] ED PROV NOTEon 07-08-2021 ED PROV NOTE Normal [facility] Glucose CSF-mCncon 2 Glucose (CSF) [Mass/Vol] 88 mg/dL High 40-70 [facility] Comment on above: Order Comment: Speci men Type: CEREBROSPINAL FLUIDOrdering Facility: [facility] Address: [address] [place] [phone] Result Comment: Lumb ar CSF glucose values of healthy patients are approximately 60% of the plasma values and must always be compared with a concurrently measured plasma value for adequate clinical interpretation.References: 1. Glucose HK (GLUC3) [package insert V 12.0 Israeli]. [employer], [place], [place]. September 2015. 2. Michelle Moore, Michelle Manjarrez (2015). Chapter 7: Glucose and Lactate. Marianela Alcocer al.(eds.), Cerebrospinal Fluid in Clinical Neurology. Story: [employer]. Performed By: #### 2 880-3, 2342-4 ####[facility] LABORATORYCLIA [id number] [address] HIGH SENSITIVITY TROPONIN To n 07-08-2021 HIGH SENSITIVITY TAMIKO 27 ng/L High <12 [facility] Comment on above: Order Comment: Speci men Type: BLOOD SPECIMENOrdering Facility: [facility] Address: [address] [place] [address] Result Comment: When assessing risk for acute [...] #### H STNT ####[facility] LABORATORYIA [id number] [address] HIGH SENSITIVITY TAMIKO 36 ng/L High <12 [facility] Comment on above: Order Comment: Shira feldman Type: BLOOD SPECIMENOrdering Facility: [facility] Address: [address] [place] [address] Result Comment: When assessing risk for acute [...] #### H STNT ####[facility] LABORATORYIA [id number] [address] STATES OF [facility] HISTORY PHYSICALon HISTORY PHYSICAL Normal [facility] NURSING PROGon 07-08-2021 NURSING PROG Normal [facility] OPERATIVE NOon 07-08-2021 OPERATIVE NO Normal [facility] Prot CSF-mCncon 07-08-2021 Protein (CSF) [Mass/Vol] 33 mg/dL Normal 15-45 [facility] Comment on above: Order Comment: Speci men Type: CEREBROSPINAL FLUIDOrdering Facility: [facility] Address: [address] [place] [address] Performed By: #### 2 880-3, 2342-4 ####[facility]ATORYCLIA [id number] [address] [place] SARS-CoV-2 RNA Resp Ql MEGAN+p robeon 07-08-2021 SARS-CoV-2 (COVID-19) RNA MEGAN+probe Ql (Resp) COVID 19 RESULT: SARS-CoV-2 (Agent of COVID-19) Not Detected by RT-PCR or equivalent method. This test has been authorized by FDA under an Emergency Use Authorization (EUA). Normal [facility] Comment on above: Performed By: #### 9 4500-6 ####[facility]ATORYCLIA [id number] [address] [place] STAPH AUREUS PCRon 2 S. aureus and MRSA panel MEGAN+probe (Nose) Normal Negative [facility] Comment on above: Order Comment: Speci men Type: SWAB OF INTERNAL NOSEOrdering Facility: [facility] Address: [address] [place] [address] Result Comment: Nega tive for Staphylococcus aureus by PCR.Negative for MRSA by PCR Performed By: #### S APCR ####[facility]ORATORYCLIA [id number] [place] [address] [place] Urinalysis complete panel (U )on 07-08-2021 Bacteria LM.HPF (Urine sed) [#/Area] Few Abnormal None Seen [facility] Comment on above: Order Comment: Speci men Type: URINE SPECIMENOrdering Facility: [facility] Address: [address] [place] [address] Performed By: #### 2 4356-8 ####[facility]ORATORYCLIA [id number] [facility] [address] Bilirubin Ql (U) Negative Normal Negative [facility] Comment on above: Order Comment: Speci men Type: URINE SPECIMENOrdering Facility: [facility] Address: [address] [place] [address] Performed By: #### 2 4356-8 ####[facility]ATORYCLIA [id number] [address] Clarity (Unsp spec) Turbid Abnormal Clear [facility] Comment on above: Order Comment: Speci men Type: URINE SPECIMENOrdering Facility: [facility] Address: [address] [place] [address] Performed By: #### 2 4356-8 ####[facility]ATORYCLIA [id number] [address] Color (U) Light Yellow Normal yellow [facility] Comment on above: Order Comment: Speci men Type: URINE SPECIMENOrdering Facility: [facility] Address: [address] [place] [address] Performed By: #### 2 4356-8 ####[facility]ATORYCLIA [id number] [address] Glucose Test strip (U) [Mass/Vol] Negative Normal Negative [facility] Comment on above: Order Comment: Speci men Type: URINE SPECIMENOrdering Facility: [facility] Address: [address] [place] [address] Performed By: #### 2 4356-8 ####[facility]ATORYCLIA [id number] [address] STATES [facility] Hemoglobin Ql (U) Negative Normal Negative [facility] Comment on above: Order Comment: Speci men Type: URINE SPECIMENOrdering Facility: [facility] Address: [address] [place] [address] Performed By: #### 2 4356-8 ####[facility]ATORYCLIA [id number] [address] [place] Hyaline casts (Urine sed) [#/Area] 1-3 /LPF Abnormal 0 /LPF [facility] Comment on above: Order Comment: Speci men Type: URINE SPECIMENOrdering Facility: [facility] Address: [address] [place] [address] Performed By: #### 2 4356-8 ####[facility]ORATORYCLIA [id number] [address] STATES [facility] Ketones Ql (U) Negative Normal Negative [facility] Comment on above: Order Comment: Speci men Type: URINE SPECIMENOrdering Facility: [facility] Address: [address] [place] [address] Performed By: #### 2 4356-8 ####[facility]ORATORYCLIA [id number] [address] Leukocyte esterase Test strip Ql (U) Negative Normal Negative [facility] Comment on above: Order Comment: Speci men Type: URINE SPECIMENOrdering Facility: [facility] Address: [address] [place] [address] Performed By: #### 2 4356-8 ####[facility]ORATORYCLIA [id number] [address] STATES [facility] Nitrite Ql (U) Negative Normal Negative [facility] Comment on above: Order Comment: Speci men Type: URINE SPECIMENOrdering Facility: [facility] Address: [address] [place] [address] Performed By: #### 2 4356-8 ####[facility]ORATORYCLIA [id number] [address] [place] pH (U) 5.0 [pH] Normal 5.0-8.0 [facility] Comment on above: Order Comment: Speci men Type: URINE SPECIMENOrdering Facility: [facility] Address: [address] [place] [address] Performed By: #### 2 4356-8 ####[facility]ORATORYCLIA [id number] [address] [place] Protein (U) [Mass/Vol] Negative Normal Negative [facility] Comment on above: Order Comment: Speci men Type: URINE SPECIMENOrdering Facility: [facility] Address: [address] [place] [address] Performed By: #### 2 4356-8 ####[facility]ATORYCLIA [id number] [address] STATES [facility] RBC LM.HPF (Urine sed) [#/Area] 11-25 /HPF Abnormal 0-3 /HPF [facility] Comment on above: Order Comment: Speci men Type: URINE SPECIMENOrdering Facility: [facility] Address: [address] [place] [address] Performed By: #### 2 4356-8 ####[facility]ENTERCLIA [id number] [address] Specific gravity (U) [Rel density] 1.018 Normal 1.005-1.030 [facility] Comment on above: Order Comment: Speci men Type: URINE SPECIMENOrdering Facility: [facility] Address: [address] [place] [address] Performed By: #### 2 4356-8 ####[facility]ATORYCLIA [id number] [address] Urobilinogen Ql (U) Normal Normal Negative [facility] Comment on above: Order Comment: Speci men Type: URINE SPECIMENOrdering Facility: [facility] Address: [address] [place] [address] Performed By: #### 2 4356-8 ####[facility]ATORYCLIA [id number] [address] WBC LM.HPF (Urine sed) [#/Area] /[HPF] Abnormal 0-5 /HPF [facility] Comment on above: Order Comment: Speci men Type: URINE SPECIMENOrdering Facility: [facility] Address: [address] [place] [address] Performed By: #### 2 4356-8 ####[facility]ORATORYCLIA [id number] [place] [address] [facility] Vancomycin random [Mass/Vol] on 07-08-2021 Vancomycin [Mass/Vol] 31.0 ug/mL High 10.0-20.0 [facility] Comment on above: Order Comment: Speci men Type: BLOOD SPECIMENOrdering Facility: [facility] Address: [facility] [place] [facility] [place] [phone] Result Comment: Refe rence ranges and high/low indicator flags are provided as general guidelines only. The treating physician must determine appropriate target levels/dosing based on the specific clinical situation. Performed By: #### 4 091-5 ####[facility]ATORYCLIA [id number] [address] XR ABD 2V SUPINE W UPR/DECUB /CTLon 07-08-2021 XR ABD 2V SUPINE W UPR/DECUB/CTL Normal [facility] XR CHEST 1V FRONTALon 2021 XR CHEST 1V FRONTAL Normal [facility] XR CHEST 1V FRONTAL Normal [facility] XR NECK SOFT TISSUE 2V AP/LA Ton 07-08-2021 XR NECK SOFT TISSUE 2V AP/LAT Normal [facility] XR SKULL 2V AP/LATon 022 XR SKULL 2V AP/LAT Normal [facility] HISTORY PHYSICALon HISTORY PHYSICAL HNO ID: [id number] Author: Amy Beltran MD Service: ? Author Type: Physician Type: HANDP Filed: 06/30/2021 6:42 PM Note Text: Connected Care Unit History and Physical Facility: [facility] Level of Care: Skilled Admission Date: June [...] regarding the above plan. Total time spent [id number] and/or counseling and coordinating care on the skilled care unit for patient was approximately 45 minutes SUBJECTIVE (HISTORY) Chief Complaint: Confusion, infection, blood clot. Andrew Sifuentes is being seen today for [facility] admission AND management of weakness, tube feed, infected retroperitoneal infection and seizure. HPI: This is a 71 year old male who presents from [facility] with primary admitting diagnosis of Seizure, enteral [...] brain concerning for hydrocephalus. Tip of [employer] shunt was found to be in the [...] Code Status: (more content not included)... Normal [facility] Basic metabolic 2000 panelon 06-28-2021 Anion gap [Moles/Vol] 7 mmol/L Low 9-18 [facility] Comment on above: Order Comment: Speci men Type: BLOOD SPECIMENOrdering Facility: [facility] Address: [address] Performed By: #### 2 4320-2, ####[facility] LABORATORYCLIA [id number] [place] [address] [place] Calcium [Mass/Vol] 8.8 mg/dL Normal 8.5-10.2 [facility] Comment on above: Order Comment: Speci men Type: BLOOD SPECIMENOrdering Facility: [facility] Address: [address] [place] [address] Performed By: #### 2 4320-06, ####[facility] LABORATORYCLIA [id number] [place] [address] [place] Chloride [Moles/Vol] 103 mmol/L Normal 97-105 [facility] Comment on above: Order Comment: Speci men Type: BLOOD SPECIMENOrdering Facility: [facility] Address: [address] [place] [address] Performed By: #### 2 4320-06, ####[facility]ORATORYCLIA [id number] [place] [address] [place] CO2 [Moles/Vol] 28 mmol/L Normal 22-30 [facility] Comment on above: Order Comment: Speci men Type: BLOOD SPECIMENOrdering Facility: [facility] Address: [address] [place] [address] Performed By: #### 2 4320-06, ####[facility]ATORYCLIA [id number] [place] [address] [place] Creatinine [Mass/Vol] 0.57 mg/dL Low 0.73-1.22 [facility] Comment on above: Order Comment: Speci men Type: BLOOD SPECIMENOrdering Facility: [facility] Address: [address] [place] [address] Performed By: #### 2 2, ####[facility]ATORYCLIA [id number] [place] [address] [place] GFR/1.73 sq M.predicted MDRD (S/P/Bld) [Vol rate/Area] mL/min/{1.73_m2} Normal [facility] Comment on above: Order Comment: Shira feldman Type: BLOOD SPECIMENOrdering Facility: [facility] Address: [address] [place] [phone] Result Comment: >60e GFR (Estimated GFR) Units [...] actual GFR. Performed By: #### 2 4321-2, 50361-8 ####[facility]ORATORYCLIA [id number] [address] OF [facility] Glucose [Mass/Vol] 120 mg/dL High 74-99 [facility] Comment on above: Order Comment: Shira feldman Type: BLOOD SPECIMENOrdering Facility: [facility] Address: [address] [place], [place] [phone] Result Comment: The [place] Diabetes Association (ADA) provides guidance for cutoff [...] Standards of Medical Care in Diabetes 2016, [place] [employer]. Diabetes Care. 2016.39(Suppl 1). Performed By: #### 2 4321-2, 16690-3 ####[facility]ORATORYCLIA [id number] [address] [place] Potassium [Moles/Vol] 3.8 mmol/L Normal 3.7-5.1 [facility] Comment on above: Order Comment: Speci men Type: BLOOD SPECIMENOrdering Facility: [facility] Address: [address] [place] [address] Performed By: #### 2 4321-2, ####[facility]ATORYCLIA [id number] [address] [place] Sodium [Moles/Vol] 138 mmol/L Normal 136-144 [facility] Comment on above: Order Comment: Speci men Type: BLOOD SPECIMENOrdering Facility: [facility] Address: [address] [place] [address] Performed By: #### 2 4321-2, ####[facility]ATORYCLIA [id number] [address] STATES OF [facility] Urea nitrogen [Mass/Vol] 24 mg/dL Normal 9-24 [facility] Comment on above: Order Comment: Speci men Type: BLOOD SPECIMENOrdering Facility: [facility] Address: [address] [place] [address] Performed By: #### 2 4321-2, ####[facility]ATORYCLIA [id number] [address] [place] CASE MANAGEMon 06-28-2021 CASE MANAGEM Normal [facility] CBC panel Auto (Bld)on 06-28 Erythrocyte distribution width (RBC) [Ratio] 15.6 % High 11.5-15.0 [facility] Comment on above: Order Comment: Speci men Type: BLOOD SPECIMENOrdering Facility: [facility] Address: [address] [place] [address] Performed By: #### 5 8410-2 ####[facility]ORATORYCLIA [id number] [address] [place] Hematocrit (Bld) [Volume fraction] 30.5 % Low 39.0-51.0 [facility] Comment on above: Order Comment: Speci men Type: BLOOD SPECIMENOrdering Facility: [facility] Address: [address] [place] [address] Performed By: #### 5 8410-2 ####[facility]ATORYCLIA [id number] [address] STATES OF [facility] Hemoglobin (Bld) [Mass/Vol] 9.4 g/dL Low 13.0-17.0 [facility] Comment on above: Order Comment: Speci men Type: BLOOD SPECIMENOrdering Facility: [facility] Address: [address] [place] [address] Performed By: #### 5 8410-2 ####[facility]ATORYCLIA [id number] [address] STATES OF [facility] MCH (RBC) [Entitic mass] 27.8 pg Normal 26.0-34.0 [facility] Comment on above: Order Comment: Speci men Type: BLOOD SPECIMENOrdering Facility: [facility] Address: [address] [place] [address] Performed By: #### 5 8410-2 ####[facility]ATORYCLIA [id number] [address] MCHC (RBC) [Mass/Vol] 30.8 g/dL Normal 30.5-36.0 [facility] Comment on above: Order Comment: Speci men Type: BLOOD SPECIMENOrdering Facility: [facility] Address: [address] [place] [address] Performed By: #### 5 8410-2 ####[facility]ORATORYCLIA [id number] [address] [place] MCV (RBC) [Entitic vol] 90.2 fL Normal 80.0-100.0 [facility] Comment on above: Order Comment: Speci men Type: BLOOD SPECIMENOrdering Facility: [facility] Address: [address] [place] [address] Performed By: #### 5 8410-2 ####[facility]ATORYCLIA [id number] [address] [place] Nucleated RBC (Bld) [#/Vol] 10*3/uL Normal <0.01 [facility] Comment on above: Order Comment: Speci men Type: BLOOD SPECIMENOrdering Facility: [facility] Address: [address] [place] [address] Performed By: #### 5 8410-2 ####[facility]ATORYCLIA [id number] [address] [place] Platelet mean volume (Bld) [Entitic vol] 9.9 fL Normal 9.0-12.7 [facility] Comment on above: Order Comment: Speci men Type: BLOOD SPECIMENOrdering Facility: [facility] Address: [address] [place] [address] Performed By: #### 5 8410-2 ####[facility]ATORYCLIA [id number] [address] [place] Platelets (Bld) [#/Vol] 333 10*3/uL Normal 150-400 [facility] Comment on above: Order Comment: Speci men Type: BLOOD SPECIMENOrdering Facility: [facility] Address: [address] [place] [address] Performed By: #### 5 8410-2 ####[facility]ATORYCLIA [id number] [address] [place] RBC (Bld) [#/Vol] 3.38 10*6/uL Low 4.20-6.00 [facility] Comment on above: Order Comment: Speci men Type: BLOOD SPECIMENOrdering Facility: [facility] Address: [address] [place] [address] Performed By: #### 5 8410-2 ####[facility]ATORYCLIA [id number] [address] [place] WBC (Bld) [#/Vol] 9.71 10*3/uL Normal 3.70-11.00 [facility] Comment on above: Order Comment: Speci men Type: BLOOD SPECIMENOrdering Facility: [facility] Address: [address] [place] [address] Performed By: #### 5 8410-2 ####[facility]ORATORYCLIA [id number] [address] CNDSon 06-28-2021 CNDS Normal [facility] CONSULT PROGon 06-28-2021 CONSULT PROG Normal [facility] Magnesium SerPl-mCncon 06-28 Magnesium [Mass/Vol] 2.2 mg/dL Normal 1.7-2.3 [facility] Comment on above: Order Comment: Speci men Type: BLOOD SPECIMENOrdering Facility: [facility] Address: [address] [place] [address] Performed By: #### 2 4321-2, ####[facility]ATORYCLIA [id number] [address] Vancomycin random [Mass/Vol] on 06-28-2021 Vancomycin [Mass/Vol] 23.0 ug/mL High 10.0-20.0 [facility] Comment on above: Order Comment: Speci men Type: BLOOD SPECIMENOrdering Facility: [facility] Address: [address] [place] [address] Result Comment: Refe rence ranges and high/low indicator flags are provided as general guidelines only. The treating physician must determine appropriate target levels/dosing based on the specific clinical situation. Performed By: #### 4 091-5 ####[facility]ATORYCLIA [id number] [address] OF [place] ALLIED HEALTHon 06-27-2021 ALLIED HEALTH Normal [facility] Basic metabolic 2000 panelon 06-27-2021 Anion gap [Moles/Vol] 10 mmol/L Normal 9-18 [facility] Comment on above: Order Comment: Speci men Type: BLOOD SPECIMENOrdering Facility: [facility] Address: [address] [place] [address] Performed By: #### 2 4320-2, ####[facility]ORATORYCLIA [id number] [place] [address] [place] Calcium [Mass/Vol] 8.8 mg/dL Normal 8.5-10.2 [facility] Comment on above: Order Comment: Speci men Type: BLOOD SPECIMENOrdering Facility: [facility] Address: [address] [place] [address] Performed By: #### 2 2, ####[facility]ORATORYCLIA [id number] [place] [address] [place] Chloride [Moles/Vol] 104 mmol/L Normal 97-105 [facility] Comment on above: Order Comment: Speci men Type: BLOOD SPECIMENOrdering Facility: [facility] Address: [address] [place] [address] Performed By: #### 2 4320-06, ####[facility] LABORATORYCLIA [id number] [address] [place] CO2 [Moles/Vol] 26 mmol/L Normal 22-30 [facility] Comment on above: Order Comment: Speci men Type: BLOOD SPECIMENOrdering Facility: [facility] Address: [address] [place] [address] Performed By: #### 2 4320-06, ####[facility]ATORYCLIA [id number] [place] [address] [place] Creatinine [Mass/Vol] 0.57 mg/dL Low 0.73-1.22 [facility] Comment on above: Order Comment: Speci men Type: BLOOD SPECIMENOrdering Facility: [facility] Address: [address] [place] [address] Performed By: #### 2 2, ####[facility]ATORYCLIA [id number] [place] [address] [place] GFR/1.73 sq M.predicted MDRD (S/P/Bld) [Vol rate/Area] mL/min/{1.73_m2} Normal [facility] Comment on above: Order Comment: Shira feldman Type: BLOOD SPECIMENOrdering Facility: [facility] Address: [address] [phone] Result Comment: >60e GFR (Estimated GFR) Units [...] actual GFR. Performed By: #### 2 4321-2, 92819-3 ####[facility]ATORYCLIA [id number] [place] [address] [place] Glucose [Mass/Vol] 133 mg/dL High 74-99 [facility] Comment on above: Order Comment: Shira feldman Type: BLOOD SPECIMENOrdering Facility: [facility] Address: [address] [place] [address] Result Comment: The [place] Diabetes Association (ADA) provides guidance for cutoff [...] Standards of Medical Care in Diabetes 2016, [place] Diabetes [employer]. Diabetes Care. 2016.39(Suppl 1). Performed By: #### 2 4321-2, 10035-3 ####[facility]ATORYCLIA [id number] [place] [address] [place] Potassium [Moles/Vol] 4.2 mmol/L Normal 3.7-5.1 [facility] Comment on above: Order Comment: Speci men Type: BLOOD SPECIMENOrdering Facility: [facility] Address: [address] [place] [address] Performed By: #### 2 4321-2, ####[facility]ORATORYCLIA [id number] [address] STATES [facility] Sodium [Moles/Vol] 140 mmol/L Normal 136-144 [facility] Comment on above: Order Comment: Speci men Type: BLOOD SPECIMENOrdering Facility: [facility] Address: [address] [place] [address] Performed By: #### 2 4321-2, ####[facility]ORATORYCLIA [id number] [address] STATES OF [facility] Urea nitrogen [Mass/Vol] 24 mg/dL Normal 9-24 [facility] Comment on above: Order Comment: Speci men Type: BLOOD SPECIMENOrdering Facility: [facility] Address: [address] [place] [address] Performed By: #### 2 4321-2, ####[facility]ORATORYCLIA [id number] [address] CASE MANAGEMon 06-27-2021 CASE MANAGEM Normal [facility] CBC panel Auto (Bld)on 06-27 Erythrocyte distribution width (RBC) [Ratio] 15.8 % High 11.5-15.0 [facility] Comment on above: Order Comment: Speci men Type: BLOOD SPECIMENOrdering Facility: [facility] Address: [address] [place] [address] Performed By: #### 5 8410-2 ####[facility]ORATORYCLIA [id number] [address] Hematocrit (Bld) [Volume fraction] 31.4 % Low 39.0-51.0 [facility] Comment on above: Order Comment: Speci men Type: BLOOD SPECIMENOrdering Facility: [facility] Address: [address] [place] [address] Performed By: #### 5 8410-2 ####[facility]ORATORYCLIA [id number] [address] Hemoglobin (Bld) [Mass/Vol] 9.3 g/dL Low 13.0-17.0 [facility] Comment on above: Order Comment: Speci men Type: BLOOD SPECIMENOrdering Facility: [facility] Address: [address] [place] [address] Performed By: #### 5 8410-2 ####[facility]ORATORYCLIA [id number] [address] MCH (RBC) [Entitic mass] 27.0 pg Normal 26.0-34.0 [facility] Comment on above: Order Comment: Speci men Type: BLOOD SPECIMENOrdering Facility: [facility] Address: [address] [place] [address] Performed By: #### 5 8410-2 ####[facility]ORATORYCLIA [id number] [address] MCHC (RBC) [Mass/Vol] 29.6 g/dL Low 30.5-36.0 [facility] Comment on above: Order Comment: Speci men Type: BLOOD SPECIMENOrdering Facility: [facility] Address: [address] [place] [address] Performed By: #### 5 8410-2 ####[facility]ORATORYCLIA [id number] [address] STATES [facility] MCV (RBC) [Entitic vol] 91.3 fL Normal 80.0-100.0 [facility] Comment on above: Order Comment: Speci men Type: BLOOD SPECIMENOrdering Facility: [facility] Address: [address] [place] [address] Performed By: #### 5 8410-2 ####[facility]ORATORYCLIA [id number] [address] Nucleated RBC (Bld) [#/Vol] 10*3/uL Normal <0.01 [facility] Comment on above: Order Comment: Speci men Type: BLOOD SPECIMENOrdering Facility: [facility] Address: [address] [place] [address] Performed By: #### 5 8410-2 ####[facility]ORATORYCLIA [id number] [place] [address] [place] Platelet mean volume (Bld) [Entitic vol] 10.3 fL Normal 9.0-12.7 [facility] Comment on above: Order Comment: Speci men Type: BLOOD SPECIMENOrdering Facility: [facility] Address: [address] [place] [address] Performed By: #### 5 8410-2 ####[facility]ORATORYCLIA [id number] [address] [place] Platelets (Bld) [#/Vol] 359 10*3/uL Normal 150-400 [facility] Comment on above: Order Comment: Speci men Type: BLOOD SPECIMENOrdering Facility: [facility] Address: [address] [place] [address] Performed By: #### 5 8410-2 ####[facility]ORATORYCLIA [id number] [place] [address] [place] RBC (Bld) [#/Vol] 3.44 10*6/uL Low 4.20-6.00 [facility] Comment on above: Order Comment: Speci men Type: BLOOD SPECIMENOrdering Facility: [facility] Address: [address] [place] [address] Performed By: #### 5 8410-2 ####[facility]ORATORYCLIA [id number] [place] [address] [place] WBC (Bld) [#/Vol] 10.73 10*3/uL Normal 3.70-11.00 [facility] Comment on above: Order Comment: Speci men Type: BLOOD SPECIMENOrdering Facility: [facility] Address: [address] [place] [address] Performed By: #### 5 8410-2 ####[facility]ORATORYCLIA [id number] [place] [address] [place] Magn[facility] Magnesium [Mass/Vol] 2.2 mg/dL Normal 1.7-2.3 [facility] Comment on above: Order Comment: Speci men Type: BLOOD SPECIMENOrdering Facility: [facility] Address: [address] [place] [address] Performed By: #### 2 4321-2, 59831-9 ####[facility]ORATORYCLIA [id number] [address] [place] NT-proBNP [facility] Natriuretic peptide.B prohormone N-Terminal [Mass/Vol] 184 pg/mL High <125 [facility] Comment on above: Order Comment: Speci men Type: BLOOD SPECIMENOrdering Facility: [facility] Address: [address] [place] [address] Performed By: #### 3 3762-6 ####[facility]ORATORYCLIA [id number] [place] [address] [place] NUTRITIONon 06-27-2021 NUTRITION Normal [facility] THERAPY NTon 06-27-2021 THERAPY NT Normal [facility] THERAPY NT Normal [facility] XR CHEST 1V FRONTALon 2021 XR CHEST 1V FRONTAL Normal [facility] Basic metabolic 2000 panelon 06-26-2021 Anion gap [Moles/Vol] 9 mmol/L Normal 9-18 [facility] Comment on above: Order Comment: Speci men Type: BLOOD SPECIMENOrdering Facility: [facility] Address: [address] [place] [address] Performed By: #### 1 9123-9, 52256-3 ####[facility]ORATORYCLIA [id number] [address] [place] Calcium [Mass/Vol] 8.7 mg/dL Normal 8.5-10.2 [facility] Comment on above: Order Comment: Speci men Type: BLOOD SPECIMENOrdering Facility: [facility] Address: [address] [place] [address] Performed By: #### 1 9123-9, 50835-5 ####[facility]ORATORYCLIA [id number] [place] [address] [place] Chloride [Moles/Vol] 105 mmol/L Normal 97-105 [facility] Comment on above: Order Comment: Speci men Type: BLOOD SPECIMENOrdering Facility: [facility] Address: [address] [place] [address] Performed By: #### 1 9123-9, 12962-4 ####[facility]ATORYCLIA [id number] [place] [address] [place] CO2 [Moles/Vol] 26 mmol/L Normal 22-30 [facility] Comment on above: Order Comment: Speci men Type: BLOOD SPECIMENOrdering Facility: [facility] Address: [address] [place] [address] Performed By: #### 1 9123-9, 35936-6 ####[facility]ORATORYCLIA [id number] [place] [address] [place] Creatinine [Mass/Vol] 0.56 mg/dL Low 0.73-1.22 [facility] Comment on above: Order Comment: Speci men Type: BLOOD SPECIMENOrdering Facility: [facility] Address: [address] [place] [address] Performed By: #### 1 9123-9, 10909-1 ####[facility]ATORYCLIA [id number] [place] [address] [place] GFR/1.73 sq M.predicted MDRD (S/P/Bld) [Vol rate/Area] mL/min/{1.73_m2} Normal [facility] Comment on above: Order Comment: Speci men Type: BLOOD SPECIMENOrdering Facility: [facility] Address: [address] [phone] Result Comment: >60e GFR (Estimated GFR) Units [...] actual GFR. Performed By: #### 1 9123-9, 99256-3 ####[facility]ENTERCLIA [id number] [place] [address] [place] Glucose [Mass/Vol] 134 mg/dL High 74-99 [facility] Comment on above: Order Comment: Shira feldman Type: BLOOD SPECIMENOrdering Facility: [facility] Address: [address] [place] [address] Result Comment: The [place] Diabetes Association (ADA) provides guidance for cutoff [...] Standards of Medical Care in Diabetes 2016, [place] Diabetes Association. Diabetes Care. 2016.39(Suppl 1). Performed By: #### 1 9123-9, 01690-9 ####[facility]ORATORYCLIA [id number] [place] [address] [place] Potassium [Moles/Vol] 3.8 mmol/L Normal 3.7-5.1 [facility] Comment on above: Order Comment: Shira feldman Type: BLOOD SPECIMENOrdering Facility: [facility] Address: [address] [address] Performed By: #### 1 9123-9, 39070-1 ####[facility]ORATORYCLIA [id number] [address] Sodium [Moles/Vol] 140 mmol/L Normal 136-144 [facility] Comment on above: Order Comment: Speci men Type: BLOOD SPECIMENOrdering Facility: [facility] Address: [address] [place] [address] Performed By: #### 1 9123-9, 15103-2 ####[facility]ORATORYCLIA [id number] [address] [place] Urea nitrogen [Mass/Vol] 24 mg/dL Normal 9-24 [facility] Comment on above: Order Comment: Speci men Type: BLOOD SPECIMENOrdering Facility: [facility] Address: [address] [place] [address] Performed By: #### 1 91239, 65503-9 ####[facility]ORATORYCLIA [id number] [address] STATES [facility] CBC panel Auto (Bld)on 06-26 Erythrocyte distribution width (RBC) [Ratio] 15.9 % High 11.5-15.0 [facility] Comment on above: Order Comment: Speci men Type: BLOOD SPECIMENOrdering Facility: [facility] Address: [address] [place] [address] Performed By: #### 5 8410-2 ####[facility]ORATORYCLIA [id number] [address] Hematocrit (Bld) [Volume fraction] 29.8 % Low 39.0-51.0 [facility] Comment on above: Order Comment: Speci men Type: BLOOD SPECIMENOrdering Facility: [facility] Address: [address] [place] [address] Performed By: #### 5 8410-2 ####[facility] LABORATORYCLIA [id number] [place] [address] [place] Hemoglobin (Bld) [Mass/Vol] 9.1 g/dL Low 13.0-17.0 [facility] Comment on above: Order Comment: Speci men Type: BLOOD SPECIMENOrdering Facility: [facility] Address: [address] [place] [address] Performed By: #### 5 8410-2 ####[facility]ORATORYCLIA [id number] [address] MCH (RBC) [Entitic mass] 27.8 pg Normal 26.0-34.0 [facility] Comment on above: Order Comment: Speci men Type: BLOOD SPECIMENOrdering Facility: [facility] Address: [address] [place] [address] Performed By: #### 5 8410-2 ####[facility] LABORATORYCLIA [id number] [address] OF [facility] MCHC (RBC) [Mass/Vol] 30.5 g/dL Normal 30.5-36.0 [facility] Comment on above: Order Comment: Speci men Type: BLOOD SPECIMENOrdering Facility: [facility] Address: [address] [place] [address] Performed By: #### 5 8410-2 ####[facility]ORATORYCLIA [id number] [address] MCV (RBC) [Entitic vol] 91.1 fL Normal 80.0-100.0 [facility] Comment on above: Order Comment: Speci men Type: BLOOD SPECIMENOrdering Facility: [facility] Address: [address] [place] [address] Performed By: #### 5 8410-2 ####[facility]ORATORYCLIA [id number] [address] Nucleated RBC (Bld) [#/Vol] 10*3/uL Normal <0.01 [facility] Comment on above: Order Comment: Speci men Type: BLOOD SPECIMENOrdering Facility: [facility] Address: [address] [place] [address] Performed By: #### 5 8410-2 ####[facility]ATORYCLIA [id number] [address] Platelet mean volume (Bld) [Entitic vol] 10.3 fL Normal 9.0-12.7 [facility] Comment on above: Order Comment: Speci men Type: BLOOD SPECIMENOrdering Facility: [facility] Address: [address] [place] [address] Performed By: #### 5 8410-2 ####[facility]ORATORYCLIA [id number] [address] [place] Platelets (Bld) [#/Vol] 336 10*3/uL Normal 150-400 [facility] Comment on above: Order Comment: Speci men Type: BLOOD SPECIMENOrdering Facility: [facility] Address: [address] [place] [address] Performed By: #### 5 8410-2 ####[facility]ATORYCLIA [id number] [address] [place] RBC (Bld) [#/Vol] 3.27 10*6/uL Low 4.20-6.00 [facility] Comment on above: Order Comment: Speci men Type: BLOOD SPECIMENOrdering Facility: [facility] Address: [address] [place] [address] Performed By: #### 5 8410-2 ####[facility]ORATORYCLIA [id number] [address] [place] WBC (Bld) [#/Vol] 9.14 10*3/uL Normal 3.70-11.00 [facility] Comment on above: Order Comment: Speci men Type: BLOOD SPECIMENOrdering Facility: [facility] Address: [address] [place] [address] Performed By: #### 5 8410-2 ####[facility]ORATORYCLIA [id number] [address] OF [facility] CONSULT PROGon 06-26-2021 CONSULT PROG Normal [facility] Magnesium SerPl-mCncon 06-26 Magnesium [Mass/Vol] 2.2 mg/dL Normal 1.7-2.3 [facility] Comment on above: Order Comment: Speci men Type: BLOOD SPECIMENOrdering Facility: [facility] Address: [address] [place] [address] Performed By: #### 1 9123-9, 04450-0 ####[facility]ORATORYCLIA [id number] [address] OF [facility] NURSING PROGon 06-26-2021 NURSING PROG Normal [facility] NURSING PROG Normal [facility] Basic metabolic 2000 panelon 06-25-2021 Anion gap [Moles/Vol] 8 mmol/L Low 9-18 [facility] Comment on above: Order Comment: Speci men Type: BLOOD SPECIMENOrdering Facility: [facility] Address: [address] [place] [address] Performed By: #### 2 432-2, ####[facility]ATORYCLIA [id number] [place] [address] [place] Calcium [Mass/Vol] 8.8 mg/dL Normal 8.5-10.2 [facility] Comment on above: Order Comment: Speci men Type: BLOOD SPECIMENOrdering Facility: [facility] Address: [address] [place] [address] Performed By: #### 2 432-2, ####[facility]ORATORYCLIA [id number] [place] [address] [place] Chloride [Moles/Vol] 105 mmol/L Normal 97-105 [facility] Comment on above: Order Comment: Speci men Type: BLOOD SPECIMENOrdering Facility: [facility] Address: [address] [place] [address] Performed By: #### 2 432-2, ####[facility]ORATORYCLIA [id number] [place] [address] [place] CO2 [Moles/Vol] 27 mmol/L Normal 22-30 [facility] Comment on above: Order Comment: Speci men Type: BLOOD SPECIMENOrdering Facility: [facility] Address: [address] [place] [address] Performed By: #### 2 432-, ####[facility]ORATORYCLIA [id number] [place] [id number] [place] Creatinine [Mass/Vol] 0.59 mg/dL Low 0.73-1.22 [facility] Comment on above: Order Comment: Speci men Type: BLOOD SPECIMENOrdering Facility: [facility] Address: [address] [place] [address] Performed By: #### 2 43205-08, ####[facility]ORATORYCLIA [id number] [address] [place] GFR/1.73 sq M.predicted MDRD (S/P/Bld) [Vol rate/Area] mL/min/{1.73_m2} Normal [facility] Comment on above: Order Comment: Speci men Type: BLOOD SPECIMENOrdering Facility: [facility] Address: [address] [place] [address] Result Comment: >60e GFR (Estimated GFR) Units [...] 2 43205-08, ####[facility]ORATORYCLIA [id number] [place] [address] [place] Glucose [Mass/Vol] 132 mg/dL High 74-99 [facility] Comment on above: Order Comment: Speci men Type: BLOOD SPECIMENOrdering Facility: [facility] Address: [address] [place], [place] [phone] Result Comment: The [place] Diabetes Association (ADA) provides guidance for cutoff [...] Standards of Medical Care in Diabetes 2016, [place] [employer]. Diabetes Care. 2016.39(Suppl 1). Performed By: #### 2 4320-06, ####[facility] LABORATORYCLIA [id number] [place] [address] [place] Potassium [Moles/Vol] 3.9 mmol/L Normal 3.7-5.1 [facility] Comment on above: Order Comment: Johni men Type: BLOOD SPECIMENOrdering Facility: [facility] Address: [address] [place], [place] [id number] Performed By: #### 2 4320-06, ####[facility] LABORATORYCLIA [id number] [place] [address] [place] Sodium [Moles/Vol] 140 mmol/L Normal 136-144 [facility] Comment on above: Order Comment: Speci men Type: BLOOD SPECIMENOrdering Facility: [facility] Address: [address] Performed By: #### 2 4320-06, ####[facility] LABORATORYCLIA [id number] [place] [address] [place] Urea nitrogen [Mass/Vol] 24 mg/dL Normal 9-24 [facility] Comment on above: Order Comment: Speci men Type: BLOOD SPECIMENOrdering Facility: [facility] Address: [address] [place] [address] Performed By: #### 2 4321-2, 77344-3 ####[facility] LABORATORYCLIA [id number] [address] [place] CASE MANAGEMon 06-25-2021 CASE MANAGEM Normal [facility] CBC panel Auto (Bld)on 06-25 Erythrocyte distribution width (RBC) [Ratio] 15.9 % High 11.5-15.0 [facility] Comment on above: Order Comment: Speci men Type: BLOOD SPECIMENOrdering Facility: [facility] Address: [address] [place] [address] Performed By: #### 5 8410-2 ####[facility] LABORATORYCLIA [id number] [address] [place] Hematocrit (Bld) [Volume fraction] 31.0 % Low 39.0-51.0 [facility] Comment on above: Order Comment: Speci men Type: BLOOD SPECIMENOrdering Facility: [facility] Address: [address] [place] [address] Performed By: #### 5 8410-2 ####[facility] LABORATORYCLIA [id number] [address] STATES [facility] Hemoglobin (Bld) [Mass/Vol] 9.4 g/dL Low 13.0-17.0 [facility] Comment on above: Order Comment: Speci men Type: BLOOD SPECIMENOrdering Facility: [facility] Address: [address] [place] [address] Performed By: #### 5 8410-2 ####[facility] LABORATORYCLIA [id number] [address] [place] MCH (RBC) [Entitic mass] 28.1 pg Normal 26.0-34.0 [facility] Comment on above: Order Comment: Speci men Type: BLOOD SPECIMENOrdering Facility: [facility] Address: [address] [place] [address] Performed By: #### 5 8410-2 ####[facility]ENTERCL[facility] [id number] [address] STATES [facility] MCHC (RBC) [Mass/Vol] 30.3 g/dL Low 30.5-36.0 [facility] Comment on above: Order Comment: Speci men Type: BLOOD SPECIMENOrdering Facility: [facility] Address: [address] [place] [address] Performed By: #### 5 8410-2 ####[facility] LABORATORYCLIA [id number] [address] MCV (RBC) [Entitic vol] 92.5 fL Normal 80.0-100.0 [facility] Comment on above: Order Comment: Speci men Type: BLOOD SPECIMENOrdering Facility: [facility] Address: [address] [place] [address] Performed By: #### 5 8410-2 ####[facility]ORATORYCLIA [id number] [address] Nucleated RBC (Bld) [#/Vol] 10*3/uL Normal <0.01 [facility] Comment on above: Order Comment: Speci men Type: BLOOD SPECIMENOrdering Facility: [facility] Address: [address] [place] [address] Performed By: #### 5 8410-2 ####[facility]ATORYCLIA [id number] [address] [place] Platelet mean volume (Bld) [Entitic vol] 10.5 fL Normal 9.0-12.7 [facility] Comment on above: Order Comment: Speci men Type: BLOOD SPECIMENOrdering Facility: [facility] Address: [address] [place] [address] Performed By: #### 5 8410-2 ####[facility]ATORYCLIA [id number] [address] [place] Platelets (Bld) [#/Vol] 311 10*3/uL Normal 150-400 [facility] Comment on above: Order Comment: Speci men Type: BLOOD SPECIMENOrdering Facility: [facility] Address: [address] [place] [address] Performed By: #### 5 8410-2 ####[facility]ORATORYCLIA [id number] [address] OF [facility] RBC (Bld) [#/Vol] 3.35 10*6/uL Low 4.20-6.00 [facility] Comment on above: Order Comment: Speci men Type: BLOOD SPECIMENOrdering Facility: [facility] Address: [address] [place] [address] Performed By: #### 5 8410-2 ####[facility]ATORYCLIA [id number] [address] WBC (Bld) [#/Vol] 9.57 10*3/uL Normal 3.70-11.00 [facility] Comment on above: Order Comment: Speci men Type: BLOOD SPECIMENOrdering Facility: [facility] Address: [address] [place] [address] Performed By: #### 5 8410-2 ####[facility]ORATORYCLIA [id number] [address] Magnesium SerPl-mCncon 06-25 Magnesium [Mass/Vol] 2.4 mg/dL High 1.7-2.3 [facility] Comment on above: Order Comment: Speci men Type: BLOOD SPECIMENOrdering Facility: [facility] Address: [address] [place] [address] Performed By: #### 2 4321-2, 78670-1 ####[facility]ATORYCLIA [id number] [address] Basic metabolic 2000 panelon 06-24-2021 Anion gap [Moles/Vol] 9 mmol/L Normal -18 [facility] Comment on above: Order Comment: Speci men Type: BLOOD SPECIMENOrdering Facility: [facility] Address: [address] [place] [address] Performed By: #### 1 9123-9, 66987-5 ####[facility]ORATORYCLIA [id number] [place] [address] [place] Calcium [Mass/Vol] 8.6 mg/dL Normal 8.5-10.2 [facility] Comment on above: Order Comment: Speci men Type: BLOOD SPECIMENOrdering Facility: [facility] Address: [address] [place] [address] Performed By: #### 1 9123-9, 84894-5 ####[facility]ORATORYCLIA [id number] [place] [address] [place] Chloride [Moles/Vol] 103 mmol/L Normal 97-105 [facility] Comment on above: Order Comment: Speci men Type: BLOOD SPECIMENOrdering Facility: [facility] Address: [address] [place] [address] Performed By: #### 1 239, 80843-3 ####[facility]ORATORYCLIA [id number] [place] [address] [place] CO2 [Moles/Vol] 26 mmol/L Normal 22-30 [facility] Comment on above: Order Comment: Speci men Type: BLOOD SPECIMENOrdering Facility: [facility] Address: [address] [place] [address] Performed By: #### 1 91239, ####[facility]ORATORYCLIA [id number] [place] [address] [place] Creatinine [Mass/Vol] 0.60 mg/dL Low 0.73-1.22 [facility] Comment on above: Order Comment: Speci men Type: BLOOD SPECIMENOrdering Facility: [facility] Address: [address] [place] [address] Performed By: #### 1 9123-9, 17436-8 ####[facility]ATORYCLIA [id number] [place] [address] [place] GFR/1.73 sq M.predicted MDRD (S/P/Bld) [Vol rate/Area] mL/min/{1.73_m2} Normal [facility] Comment on above: Order Comment: Shira feldman Type: BLOOD SPECIMENOrdering Facility: [facility] Address: [address] [place] [address] Result Comment: >60e GFR (Estimated GFR) Units [...] actual GFR. Performed By: #### 1 9123-9, 97611-0 ####[facility]ORATORYCLIA [id number] [place] [address] [place] Glucose [Mass/Vol] 126 mg/dL High 74-99 [facility] Comment on above: Order Comment: Shira feldman Type: BLOOD SPECIMENOrdering Facility: [facility] Address: [place] [id number] Result Comment: The [place] Diabetes [employer] (ADA) provides guidance for cutoff [...] Standards of Medical Care in Diabetes 2016, [place] [employer]. Diabetes Care. 2016.39(Suppl 1). Performed By: #### 1 9123-9, 16422-4 ####[facility]ORATORYCLIA [id number] [place] [address] [place] Potassium [Moles/Vol] 3.9 mmol/L Normal 3.7-5.1 [facility] Comment on above: Order Comment: Speci men Type: BLOOD SPECIMENOrdering Facility: [facility] Address: [address] [place] [address] Performed By: #### 1 9123-9, 43108-2 ####[facility]ORATORYCLIA [id number] [place] [address] [place] Sodium [Moles/Vol] 138 mmol/L Normal 136-144 [facility] Comment on above: Order Comment: Speci men Type: BLOOD SPECIMENOrdering Facility: [facility] Address: [address] [place] [address] Performed By: #### 1 9123-9, 52531-5 ####[facility]ORATORYCLIA [id number] [address] [place] Urea nitrogen [Mass/Vol] 24 mg/dL Normal 9-24 [facility] Comment on above: Order Comment: Speci men Type: BLOOD SPECIMENOrdering Facility: [facility] Address: [address] [place] [address] Performed By: #### 1 9123-9, ####[facility]ORATORYCLIA [id number] [address] [place] CASE MANAGEMon 06-24-2021 CASE MANAGEM Normal [facility] CASE MANAGEM Normal [facility] CASE MANAGEM Normal [facility] CBC panel Auto (Bld)on 06-24 Erythrocyte distribution width (RBC) [Ratio] 16.1 % High 11.5-15.0 [facility] Comment on above: Order Comment: Speci men Type: BLOOD SPECIMENOrdering Facility: [facility] Address: [address] [place] [address] Performed By: #### 5 8410-2 ####[facility]ORATORYCLIA [id number] [place] [address] [place] Hematocrit (Bld) [Volume fraction] 31.7 % Low 39.0-51.0 [facility] Comment on above: Order Comment: Speci men Type: BLOOD SPECIMENOrdering Facility: [facility] Address: [address] [place] [address] Performed By: #### 5 8410-2 ####[facility]ORATORYCLIA [id number] [address] OF [facility] Hemoglobin (Bld) [Mass/Vol] 9.7 g/dL Low 13.0-17.0 [facility] Comment on above: Order Comment: Speci men Type: BLOOD SPECIMENOrdering Facility: [facility] Address: [address] [place] [address] Performed By: #### 5 8410-2 ####[facility]ORATORYCLIA [id number] [address] STATES OF [facility] MCH (RBC) [Entitic mass] 28.0 pg Normal 26.0-34.0 [facility] Comment on above: Order Comment: Speci men Type: BLOOD SPECIMENOrdering Facility: [facility] Address: [address] [place] [address] Performed By: #### 5 8410-2 ####[facility]ATORYCLIA [id number] [address] MCHC (RBC) [Mass/Vol] 30.6 g/dL Normal 30.5-36.0 [facility] Comment on above: Order Comment: Speci men Type: BLOOD SPECIMENOrdering Facility: [facility] Address: [address] [place] [address] Performed By: #### 5 8410-2 ####[facility]ATORYCLIA [id number] [address] MCV (RBC) [Entitic vol] 91.4 fL Normal 80.0-100.0 [facility] Comment on above: Order Comment: Speci men Type: BLOOD SPECIMENOrdering Facility: [facility] Address: [address] [place] [address] Performed By: #### 5 8410-2 ####[facility]ATORYCLIA [id number] [address] [place] Nucleated RBC (Bld) [#/Vol] 10*3/uL Normal <0.01 [facility] Comment on above: Order Comment: Speci men Type: BLOOD SPECIMENOrdering Facility: [facility] Address: [address] [place] [address] Performed By: #### 5 8410-2 ####[facility]ORATORYCLIA [id number] [address] [place] Platelet mean volume (Bld) [Entitic vol] 11.0 fL Normal 9.0-12.7 [facility] Comment on above: Order Comment: Speci men Type: BLOOD SPECIMENOrdering Facility: [facility] Address: [address] [place] [address] Performed By: #### 5 8410-2 ####[facility]ATORYCLIA [id number] [address] Platelets (Bld) [#/Vol] 358 10*3/uL Normal 150-400 [facility] Comment on above: Order Comment: Speci men Type: BLOOD SPECIMENOrdering Facility: [facility] Address: [address] [place] [address] Performed By: #### 5 8410-2 ####[facility]ATORYCLIA [id number] [address] [place] RBC (Bld) [#/Vol] 3.47 10*6/uL Low 4.20-6.00 [facility] Comment on above: Order Comment: Speci men Type: BLOOD SPECIMENOrdering Facility: [facility] Address: [address] [place] [address] Performed By: #### 5 8410-2 ####[facility]ATORYCLIA [id number] [address] [place] WBC (Bld) [#/Vol] 10.07 10*3/uL Normal 3.70-11.00 [facility] Comment on above: Order Comment: Speci men Type: BLOOD SPECIMENOrdering Facility: [facility] Address: [address] [place] [address] Performed By: #### 5 8410-2 ####[facility]ATORYCLIA [id number] [place] [address] [place] Magnesium SerPl-mCncon 06-24 Magnesium [Mass/Vol] 2.3 mg/dL Normal 1.7-2.3 [facility] Comment on above: Order Comment: Speci men Type: BLOOD SPECIMENOrdering Facility: [facility] Address: [address] [place] [address] Performed By: #### 1 9123-9, 71082-0 ####[facility]ATORYCLIA [id number] [place] [address] [place] ALLIED HEALTHon 06-23-2021 ALLIED HEALTH Normal [facility] Basic metabolic 2000 panelon 06-23-2021 Anion gap [Moles/Vol] 9 mmol/L Normal 9-18 [facility] Comment on above: Order Comment: Speci men Type: BLOOD SPECIMENOrdering Facility: [facility] Address: [address] [place] [address] Performed By: #### 1 9123-9, 03124-0 ####[facility]ATORYCLIA [id number] [place] [address] [place] Calcium [Mass/Vol] 8.4 mg/dL Low 8.5-10.2 [facility] Comment on above: Order Comment: Speci men Type: BLOOD SPECIMENOrdering Facility: [facility] Address: [address] [place] [address] Performed By: #### 1 9123-9, 19138-0 ####[facility]ORATORYCLIA [id number] [place] [address] [place] Chloride [Moles/Vol] 104 mmol/L Normal 97-105 [facility] Comment on above: Order Comment: Speci men Type: BLOOD SPECIMENOrdering Facility: [facility] Address: [address] [place], [place] [address] [address] Performed By: #### 1 9123-9, 41907-3 ####[facility]ORATORYCLIA [id number] [address] STATES OF [facility] CO2 [Moles/Vol] 26 mmol/L Normal 22-30 [facility] Comment on above: Order Comment: Speci men Type: BLOOD SPECIMENOrdering Facility: [facility] Address: [address] [place] [address] Performed By: #### 1 9123-9, 30886-8 ####[facility]ORATORYCLIA [id number] [address] [place] Creatinine [Mass/Vol] 0.62 mg/dL Low 0.73-1.22 [facility] Comment on above: Order Comment: Speci men Type: BLOOD SPECIMENOrdering Facility: [facility] Address: [address] [place] [address] Performed By: #### 1 9123-9, 54404-4 ####[facility]ATORYCLIA [id number] [address] [place] GFR/1.73 sq M.predicted MDRD (S/P/Bld) [Vol rate/Area] mL/min/{1.73_m2} Normal [facility] Comment on above: Order Comment: Speci men Type: BLOOD SPECIMENOrdering Facility: [facility] Address: [address] [place] [address] Result Comment: >60e GFR (Estimated GFR) Units [...] actual GFR. Performed By: #### 1 9123-9, 86584-5 ####[facility]ATORYCLIA [id number] [place] [address] [place] Glucose [Mass/Vol] 111 mg/dL High 74-99 [facility] Comment on above: Order Comment: Speci men Type: BLOOD SPECIMENOrdering Facility: [facility] Address: [address] [place] [address] Result Comment: The [place] Diabetes Association (ADA) provides guidance for cutoff [...] Standards of Medical Care in Diabetes 2016, [place] [employer]. Diabetes Care. 2016.39(Suppl 1). Performed By: #### 1 9123-9, 16940-2 ####[facility]ATORYCLIA [id number] [place] [address] [place] Potassium [Moles/Vol] 4.1 mmol/L Normal 3.7-5.1 [facility] Comment on above: Order Comment: Speci men Type: BLOOD SPECIMENOrdering Facility: [facility] Address: [address] [place] [address] Performed By: #### 1 9123-9, 77601-7 ####[facility]ATORYCLIA [id number] [place] [address] [place] Sodium [Moles/Vol] 139 mmol/L Normal 136-144 [facility] Comment on above: Order Comment: Speci men Type: BLOOD SPECIMENOrdering Facility: [facility] Address: [address] [place] [address] Performed By: #### 1 9123-9-2 ####[facility]ATORYCLIA [id number] [place] [address] [place] Urea nitrogen [Mass/Vol] 26 mg/dL High 9-24 [facility] Comment on above: Order Comment: Speci men Type: BLOOD SPECIMENOrdering Facility: [facility] Address: [address] [place] [address] Performed By: #### 1 9123-9, 11283-7 ####[facility]ATORYCLIA [id number] [address] OF [facility] CASE MANAGEMon 06-23-2021 CASE MANAGEM Normal [facility] CBC panel Auto (Bld)on 06-23 Erythrocyte distribution width (RBC) [Ratio] 16.0 % High 11.5-15.0 [facility] Comment on above: Order Comment: Speci men Type: BLOOD SPECIMENOrdering Facility: [facility] Address: [address] [place] [address] Performed By: #### 5 8410-2 ####[facility]ATORYCLIA [id number] [address] STATES OF [facility] Hematocrit (Bld) [Volume fraction] 31.1 % Low 39.0-51.0 [facility] Comment on above: Order Comment: Speci men Type: BLOOD SPECIMENOrdering Facility: [facility] Address: [address] [place] [address] Performed By: #### 5 8410-2 ####[facility]ATORYCLIA [id number] [place] [address] [place] Hemoglobin (Bld) [Mass/Vol] 9.5 g/dL Low 13.0-17.0 [facility] Comment on above: Order Comment: Speci men Type: BLOOD SPECIMENOrdering Facility: [facility] Address: [address] [place] [address] Performed By: #### 5 8410-2 ####[facility]ATORYCLIA [id number] [place] [address] [place] MCH (RBC) [Entitic mass] 28.1 pg Normal 26.0-34.0 [facility] Comment on above: Order Comment: Speci men Type: BLOOD SPECIMENOrdering Facility: [facility] Address: [address] [place] [address] Performed By: #### 5 8410-2 ####[facility]ATORYCLIA [id number] [address] MCHC (RBC) [Mass/Vol] 30.5 g/dL Normal 30.5-36.0 [facility] Comment on above: Order Comment: Speci men Type: BLOOD SPECIMENOrdering Facility: [facility] Address: [address] [place] [address] Performed By: #### 5 8410-2 ####[facility]ATORYCLIA [id number] [address] MCV (RBC) [Entitic vol] 92.0 fL Normal 80.0-100.0 [facility] Comment on above: Order Comment: Speci men Type: BLOOD SPECIMENOrdering Facility: [facility] Address: [address] [place] [address] Performed By: #### 5 8410-2 ####[facility]ATORYCLIA [id number] [address] Nucleated RBC (Bld) [#/Vol] 10*3/uL Normal <0.01 [facility] Comment on above: Order Comment: Speci men Type: BLOOD SPECIMENOrdering Facility: [facility] Address: [address] [place] [address] Performed By: #### 5 8410-2 ####[facility]ORATORYCLIA [id number] [address] Platelet mean volume (Bld) [Entitic vol] 11.0 fL Normal 9.0-12.7 [facility] Comment on above: Order Comment: Speci men Type: BLOOD SPECIMENOrdering Facility: [facility] Address: [address] [place] [address] Performed By: #### 5 8410-2 ####[facility]ATORYCLIA [id number] [place] [address] [place] Platelets (Bld) [#/Vol] 361 10*3/uL Normal 150-400 [facility] Comment on above: Order Comment: Speci men Type: BLOOD SPECIMENOrdering Facility: [facility] Address: [address] [place] [address] Performed By: #### 5 8410-2 ####[facility]ATORYCLIA [id number] [place] [address] [place] RBC (Bld) [#/Vol] 3.38 10*6/uL Low 4.20-6.00 [facility] Comment on above: Order Comment: Speci men Type: BLOOD SPECIMENOrdering Facility: [facility] Address: [address] [place] [address] Performed By: #### 5 8410-2 ####[facility]ORATORYCLIA [id number] [address] OF [facility] WBC (Bld) [#/Vol] 9.02 10*3/uL Normal 3.70-11.00 [facility] Comment on above: Order Comment: Speci men Type: BLOOD SPECIMENOrdering Facility: [facility] Address: [address] [place] [address] Performed By: #### 5 8410-2 ####[facility]ORATORYCLIA [id number] [address] [place] CONSULT PROGon 06-23-2021 CONSULT PROG Normal [facility] CONSULT PROG Normal [facility] Magnesium SerPl-mCncon 06-23 Magnesium [Mass/Vol] 2.4 mg/dL High 1.7-2.3 [facility] Comment on above: Order Comment: Speci men Type: BLOOD SPECIMENOrdering Facility: [facility] Address: [address] [place] [address] Performed By: #### 1 9123-9, 32948-1 ####[facility]ATORYCLIA [id number] [address] [place] THERAPY NTon 06-23-2021 THERAPY NT Normal [facility] Vancomycin random [Mass/Vol] on 06-23-2021 Vancomycin [Mass/Vol] 22.8 ug/mL High 10.0-20.0 [facility] Comment on above: Order Comment: Speci men Type: BLOOD SPECIMENOrdering Facility: [facility] Address: [address] [place] [address] Result Comment: Refe rence ranges and high/low indicator flags are provided as general guidelines only. The treating physician must determine appropriate target levels/dosing based on the specific clinical situation. Performed By: #### 4 091-5 ####[facility]ORATORYCLIA [id number] [address] [place] XR MOD BARIUM SWALLOW W SPEE Lore 06-23-2021 XR MOD BARIUM SWALLOW W SPEECH Normal [facility] Basic metabolic 2000 panelon 06-22-2021 Anion gap [Moles/Vol] 6 mmol/L Low 9-18 [facility] Comment on above: Order Comment: Speci men Type: BLOOD SPECIMENOrdering Facility: [facility] Address: [address] [place] [address] Performed By: #### 2 4321-2, 43424-6 ####[facility]ORATORYCLIA [id number] [place] [address] [place] Calcium [Mass/Vol] 8.5 mg/dL Normal 8.5-10.2 [facility] Comment on above: Order Comment: Speci men Type: BLOOD SPECIMENOrdering Facility: [facility] Address: [address] [place], [place] [id number] Performed By: #### 2 4321-2, ####[facility] LABORATORYCLIA [id number] [place] [address] [place] Chloride [Moles/Vol] 105 mmol/L Normal 97-105 [facility] Comment on above: Order Comment: Speci men Type: BLOOD SPECIMENOrdering Facility: [facility] Address: [address] [place], [place] [address] [address] Performed By: #### 2 4321-2, ####[facility]ATORYCLIA [id number] [address] [place] CO2 [Moles/Vol] 26 mmol/L Normal 22-30 [facility] Comment on above: Order Comment: Speci men Type: BLOOD SPECIMENOrdering Facility: [facility] Address: [address] [place] [address] Performed By: #### 2 43205-08, ####[facility]ATORYCLIA [id number] [address] [place] Creatinine [Mass/Vol] 0.56 mg/dL Low 0.73-1.22 [facility] Comment on above: Order Comment: Speci men Type: BLOOD SPECIMENOrdering Facility: [facility] Address: [address] [place] [address] Performed By: #### 2 43205-08, ####[facility]ATORYCLIA [id number] [address] [place] GFR/1.73 sq M.predicted MDRD (S/P/Bld) [Vol rate/Area] mL/min/{1.73_m2} Normal [facility] Comment on above: Order Comment: Speci men Type: BLOOD SPECIMENOrdering Facility: [facility] Address: [address] [place] [address] Result Comment: >60e GFR (Estimated GFR) Units [...] GFR. Performed By: #### 2 ####[facility]ATORYCLIA [id number] [place] [address] [place] Glucose [Mass/Vol] 120 mg/dL High 74-99 [facility] Comment on above: Order Comment: Speci men Type: BLOOD SPECIMENOrdering Facility: [facility] Address: [address] [place] [address] Result Comment: The [place] Diabetes Association (ADA) provides guidance for cutoff [...] Standards of Medical Care in Diabetes 2016, [place] [employer]. Diabetes Care. 2016.39(Suppl 1). Performed By: #### 2 ####[facility]ATORYCLIA [id number] [place] [address] [place] Potassium [Moles/Vol] 4.0 mmol/L Normal 3.7-5.1 [facility] Comment on above: Order Comment: Speci men Type: BLOOD SPECIMENOrdering Facility: [facility] Address: [address] [place], [place] [id number] Performed By: #### 2 ####[facility]ATORYCLIA [id number] [place] [id number] [place] Sodium [Moles/Vol] 137 mmol/L Normal 136-144 [facility] Comment on above: Order Comment: Speci men Type: BLOOD SPECIMENOrdering Facility: [facility] Address: [address] [place], [place] [address] Performed By: #### 2 ####[facility]ATORYCLIA [id number] [address] [place] Urea nitrogen [Mass/Vol] 25 mg/dL High 9-24 [facility] Comment on above: Order Comment: Speci men Type: BLOOD SPECIMENOrdering Facility: [facility] Address: [address] [place] [address] Performed By: #### 2 4321-2, 73244-1 ####[facility]ATORYCLIA [id number] [address] [place] CASE MANAGEMon 06-22-2021 CASE MANAGEM Normal [facility] CBC panel Auto (Bld)on 06-22 Erythrocyte distribution width (RBC) [Ratio] 16.0 % High 11.5-15.0 [facility] Comment on above: Order Comment: Speci men Type: BLOOD SPECIMENOrdering Facility: [facility] Address: [address] [place] [address] Performed By: #### 5 8410-2 ####[facility]ATORYCLIA [id number] [address] [place] Hematocrit (Bld) [Volume fraction] 30.5 % Low 39.0-51.0 [facility] Comment on above: Order Comment: Speci men Type: BLOOD SPECIMENOrdering Facility: [facility] Address: [address] [place] [address] Performed By: #### 5 8410-2 ####[facility]ATORYCLIA [id number] [address] [place] Hemoglobin (Bld) [Mass/Vol] 9.3 g/dL Low 13.0-17.0 [facility] Comment on above: Order Comment: Speci men Type: BLOOD SPECIMENOrdering Facility: [facility] Address: [address] [place] [address] Performed By: #### 5 8410-2 ####[facility]ATORYCLIA [id number] [address] [place] MCH (RBC) [Entitic mass] 28.4 pg Normal 26.0-34.0 [facility] Comment on above: Order Comment: Speci men Type: BLOOD SPECIMENOrdering Facility: [facility] Address: [address] [place] [address] Performed By: #### 5 8410-2 ####[facility]ATORYCLIA [id number] [address] MCHC (RBC) [Mass/Vol] 30.5 g/dL Normal 30.5-36.0 [facility] Comment on above: Order Comment: Speci men Type: BLOOD SPECIMENOrdering Facility: [facility] Address: [address] [place] [address] Performed By: #### 5 8410-2 ####[facility]ORATORYCLIA [id number] [address] MCV (RBC) [Entitic vol] 93.3 fL Normal 80.0-100.0 [facility] Comment on above: Order Comment: Speci men Type: BLOOD SPECIMENOrdering Facility: [facility] Address: [address] [place] [address] Performed By: #### 5 8410-2 ####[facility]ORATORYCLIA [id number] [address] Nucleated RBC (Bld) [#/Vol] 10*3/uL Normal <0.01 [facility] Comment on above: Order Comment: Speci men Type: BLOOD SPECIMENOrdering Facility: [facility] Address: [address] [place] [address] Performed By: #### 5 8410-2 ####[facility]ATORYCLIA [id number] [address] Platelet mean volume (Bld) [Entitic vol] 11.5 fL Normal 9.0-12.7 [facility] Comment on above: Order Comment: Speci men Type: BLOOD SPECIMENOrdering Facility: [facility] Address: [address] [place] [address] Performed By: #### 5 8410-2 ####[facility]CLIA [id number] [address] [place] Platelets (Bld) [#/Vol] 346 10*3/uL Normal 150-400 [facility] Comment on above: Order Comment: Speci men Type: BLOOD SPECIMENOrdering Facility: [facility] Address: [address] [place] [address] Performed By: #### 5 8410-2 ####[facility]ATORYCLIA [id number] [address] [place] RBC (Bld) [#/Vol] 3.27 10*6/uL Low 4.20-6.00 [facility] Comment on above: Order Comment: Speci men Type: BLOOD SPECIMENOrdering Facility: [facility] Address: [address] [place] [address] Performed By: #### 5 8410-2 ####[facility]ENTERCLIA [id number] [address] OF [facility] WBC (Bld) [#/Vol] 9.44 10*3/uL Normal 3.70-11.00 [facility] Comment on above: Order Comment: Speci men Type: BLOOD SPECIMENOrdering Facility: [facility] Address: [address] [place] [address] Performed By: #### 5 8410-2 ####[facility]ATORYCLIA [id number] [address] [place] HEMOGLOBIN (HGB)on Hemoglobin (Bld) [Mass/Vol] 9.7 g/dL Low 13.0-17.0 [facility] Comment on above: Order Comment: Speci men Type: BLOOD SPECIMENOrdering Facility: [facility] Address: [address] [place] [address] Performed By: #### H GB ####[facility]ATORYCLIA [id number] [address] [place] Magnesium SerPl-mCncon 06-22 Magnesium [Mass/Vol] 2.4 mg/dL High 1.7-2.3 [facility] Comment on above: Order Comment: Speci men Type: BLOOD SPECIMENOrdering Facility: [facility] Address: [address] [place] [address] Performed By: #### 2 4321-2, ####[facility]ATORYCLIA [id number] [address] OF [facility] THERAPY NTon 06-22-2021 THERAPY NT Normal [facility] THERAPY NT Normal [facility] aPTT PPPon 06-22-2021 aPTT Coag (PPP) [Time] 62.3 s High 23.0-32.4 [facility] Comment on above: Order Comment: Speci men Type: BLOOD SPECIMENOrdering Facility: [facility] Address: [address] [place] [address] Performed By: #### 1 4979-9 ####[facility]ATORYCLIA [id number] [address] [place] ALLIED HEALTHon 06-21-2021 ALLIED HEALTH Normal [facility] Basic metabolic 2000 panelon 06-21-2021 Anion gap [Moles/Vol] 8 mmol/L Low 9-18 [facility] Comment on above: Order Comment: Speci men Type: BLOOD SPECIMENOrdering Facility: [facility] Address: [address] [place] [address] Performed By: #### 2 4321-2, ####[facility]ATORYCLIA [id number] [place] [address] [place] Calcium [Mass/Vol] 8.2 mg/dL Low 8.5-10.2 [facility] Comment on above: Order Comment: Speci men Type: BLOOD SPECIMENOrdering Facility: [facility] Address: [address] [place] [address] Performed By: #### 2 4321-2, ####[facility]ORATORYCLIA [id number] [place] [address] [place] Chloride [Moles/Vol] 108 mmol/L High 97-105 [facility] Comment on above: Order Comment: Speci men Type: BLOOD SPECIMENOrdering Facility: [facility] Address: [address] [address] Performed By: #### 2 4321-2, ####[facility]ATORYCLIA [id number] [place] [address] [place] CO2 [Moles/Vol] 24 mmol/L Normal 22-30 [facility] Comment on above: Order Comment: Speci men Type: BLOOD SPECIMENOrdering Facility: [facility] Address: [address] [place] [address] Performed By: #### 2 43205-08, ####[facility]ATORYCLIA [id number] [address] [place] Creatinine [Mass/Vol] 0.61 mg/dL Low 0.73-1.22 [facility] Comment on above: Order Comment: Speci men Type: BLOOD SPECIMENOrdering Facility: [facility] Address: [address] [place] [address] Performed By: #### 2 43205-08, ####[facility]ATORYCLIA [id number] [address] [place] GFR/1.73 sq M.predicted MDRD (S/P/Bld) [Vol rate/Area] mL/min/{1.73_m2} Normal [facility] Comment on above: Order Comment: Speci men Type: BLOOD SPECIMENOrdering Facility: [facility] Address: [address] [place] [address] Result Comment: >60e GFR (Estimated GFR) Units [...] actual GFR. Performed By: #### 2 4321-, 99167-3 ####[facility]ATORYCLIA [id number] [place] [address] [place] Glucose [Mass/Vol] 211 mg/dL High 74-99 [facility] Comment on above: Order Comment: Shira feldman Type: BLOOD SPECIMENOrdering Facility: [facility] Address: [address] [place] [phone] Result Comment: The [place] Diabetes Association (ADA) provides guidance for cutoff [...] Standards of Medical Care in Diabetes 2016, [place] [employer]. Diabetes Care. 2016.39(Suppl 1). Performed By: #### 2 432-, ####[facility]ATORYCLIA [id number] [place] [address] [place] Potassium [Moles/Vol] 4.3 mmol/L Normal 3.7-5.1 [facility] Comment on above: Order Comment: Shira feldman Type: BLOOD SPECIMENOrdering Facility: [facility] Address: [address] [place] [phone] Performed By: #### 2 432-, ####[facility]ATORYCLIA [id number] [place] [address] [place] Sodium [Moles/Vol] 140 mmol/L Normal 136-144 [facility] Comment on above: Order Comment: Shira feldman Type: BLOOD SPECIMENOrdering Facility: [facility] Address: [address] [place] [place] [address] Performed By: #### 2 4321-2, ####[facility]ATORYCLIA [id number] [address] STATES [facility] Urea nitrogen [Mass/Vol] 26 mg/dL High 9-24 [facility] Comment on above: Order Comment: Speci men Type: BLOOD SPECIMENOrdering Facility: [facility] Address: [address] [place] [address] Performed By: #### 2 4321-2, ####[facility]ATORYCLIA [id number] [address] CBC panel Auto (Bld)on 06-21 Erythrocyte distribution width (RBC) [Ratio] 16.1 % High 11.5-15.0 [facility] Comment on above: Order Comment: Speci men Type: BLOOD SPECIMENOrdering Facility: [facility] Address: [address] [place] [address] Performed By: #### 5 8410-2 ####[facility]ORATORYCLIA [id number] [address] Hematocrit (Bld) [Volume fraction] 29.7 % Low 39.0-51.0 [facility] Comment on above: Order Comment: Speci men Type: BLOOD SPECIMENOrdering Facility: [facility] Address: [address] [place] [address] Performed By: #### 5 8410-2 ####[facility]ORATORYCLIA [id number] [address] STATES OF [facility] Hemoglobin (Bld) [Mass/Vol] 9.2 g/dL Low 13.0-17.0 [facility] Comment on above: Order Comment: Speci men Type: BLOOD SPECIMENOrdering Facility: [facility] Address: [address] [place] [address] Performed By: #### 5 8410-2 ####[facility]ORATORYCLIA [id number] [place] [address] MCH (RBC) [Entitic mass] 28.8 pg Normal 26.0-34.0 [facility] Comment on above: Order Comment: Speci men Type: BLOOD SPECIMENOrdering Facility: [facility] Address: [address] [place] [address] Performed By: #### 5 8410-2 ####[facility]ATORYCLIA [id number] [address] MCHC (RBC) [Mass/Vol] 31.0 g/dL Normal 30.5-36.0 [facility] Comment on above: Order Comment: Speci men Type: BLOOD SPECIMENOrdering Facility: [facility] Address: [address] [place] [address] Performed By: #### 5 8410-2 ####[facility]ATORYCLIA [id number] [address] MCV (RBC) [Entitic vol] 93.1 fL Normal 80.0-100.0 [facility] Comment on above: Order Comment: Speci men Type: BLOOD SPECIMENOrdering Facility: [facility] Address: [address] [place] [address] Performed By: #### 5 8410-2 ####[facility]ATORYCLIA [id number] [address] Nucleated RBC (Bld) [#/Vol] 10*3/uL Normal <0.01 [facility] Comment on above: Order Comment: Speci men Type: BLOOD SPECIMENOrdering Facility: [facility] Address: [address] [place] [address] Performed By: #### 5 8410-2 ####[facility]ATORYCLIA [id number] [address] Platelet mean volume (Bld) [Entitic vol] 11.6 fL Normal 9.0-12.7 [facility] Comment on above: Order Comment: Speci men Type: BLOOD SPECIMENOrdering Facility: [facility] Address: [address] [place] [address] Performed By: #### 5 8410-2 ####[facility]ATORYCLIA [id number] [address] OF [facility] Platelets (Bld) [#/Vol] 347 10*3/uL Normal 150-400 [facility] Comment on above: Order Comment: Speci men Type: BLOOD SPECIMENOrdering Facility: [facility] Address: [address] [place] [address] Performed By: #### 5 8410-2 ####[facility]ATORYCLIA [id number] [address] [place] RBC (Bld) [#/Vol] 3.19 10*6/uL Low 4.20-6.00 [facility] Comment on above: Order Comment: Speci men Type: BLOOD SPECIMENOrdering Facility: [facility] Address: [address] [place] [address] Performed By: #### 5 8410-2 ####[facility]ATORYCLIA [id number] [address] OF [facility] WBC (Bld) [#/Vol] 10.29 10*3/uL Normal 3.70-11.00 [facility] Comment on above: Order Comment: Speci men Type: BLOOD SPECIMENOrdering Facility: [facility] Address: [address] [place] [address] Performed By: #### 5 8410-2 ####[facility]ATORYCLIA [id number] [address] CONSULT PROGon 06-21-2021 CONSULT PROG Normal [facility] CONSULT PROG Normal [facility] Magnesium SerPl-mCncon 06-21 Magnesium [Mass/Vol] 2.5 mg/dL High 1.7-2.3 [facility] Comment on above: Order Comment: Speci men Type: BLOOD SPECIMENOrdering Facility: [facility] Address: [address] [place] [address] Performed By: #### 2 4321-2, 68275-9 ####[facility]ATORYCLIA [id number] [place] [address] [place] NUTRITIONon 06-21-2021 NUTRITION Normal [facility] XR CHEST 1V FRONTALon 2021 XR CHEST 1V FRONTAL Normal [facility] aPTT PPPon 06-21-2021 aPTT Coag (PPP) [Time] 68.5 s High 23.0-32.4 [facility] Comment on above: Order Comment: Speci men Type: BLOOD SPECIMENOrdering Facility: [facility] Address: [address] [place] [address] Performed By: #### 1 4979-9 ####[facility]ATORYCLIA [id number] [address] STATES OF [facility] aPTT Coag (PPP) [Time] 57.8 s High 23.0-32.4 [facility] Comment on above: Order Comment: Speci men Type: BLOOD SPECIMENOrdering Facility: [facility] Address: [address] [place] [address] Performed By: #### 1 4979-9 ####[facility]ATORYCLIA [id number] [place] [address] [place] Basic metabolic 2000 panelon 06-20-2021 Anion gap [Moles/Vol] 9 mmol/L Normal 9-18 [facility] Comment on above: Order Comment: Speci men Type: BLOOD SPECIMENOrdering Facility: [facility] Address: [address] [place] [address] Performed By: #### 2 4321-2, 51717-5 ####[facility]ATORYCLIA [id number] [address] [place] Calcium [Mass/Vol] 8.3 mg/dL Low 8.5-10.2 [facility] Comment on above: Order Comment: Speci men Type: BLOOD SPECIMENOrdering Facility: [facility] Address: [address] [place] [address] Performed By: #### 2 432-2, ####[facility]ATORYCLIA [id number] [place] [address] [place] Chloride [Moles/Vol] 111 mmol/L High 97-105 [facility] Comment on above: Order Comment: Speci men Type: BLOOD SPECIMENOrdering Facility: [facility] Address: [address] [place] [address] Performed By: #### 2 432-2, ####[facility]ATORYCLIA [id number] [place] [address] [place] CO2 [Moles/Vol] 24 mmol/L Normal 22-30 [facility] Comment on above: Order Comment: Speci men Type: BLOOD SPECIMENOrdering Facility: [facility] Address: [address] [place] [address] Performed By: #### 2 43205-08, ####[facility]ATORYCLIA [id number] [address] [place] Creatinine [Mass/Vol] 0.64 mg/dL Low 0.73-1.22 [facility] Comment on above: Order Comment: Speci men Type: BLOOD SPECIMENOrdering Facility: [facility] Address: [address] [place] [address] Performed By: #### 2 43205-08, ####[facility]ATORYCLIA [id number] [place] [address] [place] GFR/1.73 sq M.predicted MDRD (S/P/Bld) [Vol rate/Area] mL/min/{1.73_m2} Normal [facility] Comment on above: Order Comment: Speci men Type: BLOOD SPECIMENOrdering Facility: [facility] Address: [address] [place] [address] Result Comment: >60e GFR (Estimated GFR) Units [...] 2 43205-08, ####[facility]ATORYCLIA [id number] [place] [address] [place] Glucose [Mass/Vol] 114 mg/dL High 74-99 [facility] Comment on above: Order Comment: Shira feldman Type: BLOOD SPECIMENOrdering Facility: [facility] Address: [address] [phone] Result Comment: The [place] Diabetes [employer] (ADA) provides guidance for cutoff [...] Standards of Medical Care in Diabetes 2016, [place] [employer]. Diabetes Care. 2016.39(Suppl 1). Performed By: #### 2 4320-06, ####[facility]ATORYCLIA [id number] [place] [address] [place] Potassium [Moles/Vol] 4.1 mmol/L Normal 3.7-5.1 [facility] Comment on above: Order Comment: Shira feldman Type: BLOOD SPECIMENOrdering Facility: [facility] Address: [address] [phone] Performed By: #### 2 43205-08, ####[facility]ATORYCLIA [id number] [place] [address] [place] Sodium [Moles/Vol] 144 mmol/L Normal 136-144 [facility] Comment on above: Order Comment: Speci men Type: BLOOD SPECIMENOrdering Facility: [facility] Address: [address] [place] [address] Performed By: #### 2 4321-2, ####[facility]ATORYCLIA [id number] [address] STATES OF [facility] Urea nitrogen [Mass/Vol] 27 mg/dL High 9-24 [facility] Comment on above: Order Comment: Speci men Type: BLOOD SPECIMENOrdering Facility: [facility] Address: [address] [place] [address] Performed By: #### 2 432-2, ####[facility]ATORYCLIA [id number] [address] OF [facility] CASE MANAGEMon 06-20-2021 CASE MANAGEM Normal [facility] CBC panel Auto (Bld)on 06-20 Erythrocyte distribution width (RBC) [Ratio] 15.9 % High 11.5-15.0 [facility] Comment on above: Order Comment: Speci men Type: BLOOD SPECIMENOrdering Facility: [facility] Address: [address] [place] [address] Performed By: #### 5 8410-2 ####[facility]ATORYCLIA [id number] [address] [place] Hematocrit (Bld) [Volume fraction] 31.0 % Low 39.0-51.0 [facility] Comment on above: Order Comment: Speci men Type: BLOOD SPECIMENOrdering Facility: [facility] Address: [address] [place] [address] Performed By: #### 5 8410-2 ####[facility] LABORATORYCLIA [id number] [address] [place] Hemoglobin (Bld) [Mass/Vol] 9.2 g/dL Low 13.0-17.0 [facility] Comment on above: Order Comment: Speci men Type: BLOOD SPECIMENOrdering Facility: [facility] Address: [address] [place] [address] Performed By: #### 5 8410-2 ####[facility] LABORATORYCLIA [id number] [address] MCH (RBC) [Entitic mass] 27.4 pg Normal 26.0-34.0 [facility] Comment on above: Order Comment: Speci men Type: BLOOD SPECIMENOrdering Facility: [facility] Address: [address] [place] [address] Performed By: #### 5 8410-2 ####[facility]ATORYCLIA [id number] [address] MCHC (RBC) [Mass/Vol] 29.7 g/dL Low 30.5-36.0 [facility] Comment on above: Order Comment: Speci men Type: BLOOD SPECIMENOrdering Facility: [facility] Address: [address] [place] [address] Performed By: #### 5 8410-2 ####[facility]ATORYCLIA [id number] [address] MCV (RBC) [Entitic vol] 92.3 fL Normal 80.0-100.0 [facility] Comment on above: Order Comment: Speci men Type: BLOOD SPECIMENOrdering Facility: [facility] Address: [address] [place] [address] Performed By: #### 5 8410-2 ####[facility]ATORYCLIA [id number] [address] Nucleated RBC (Bld) [#/Vol] 10*3/uL Normal <0.01 [facility] Comment on above: Order Comment: Speci men Type: BLOOD SPECIMENOrdering Facility: [facility] Address: [address] [place] [address] Performed By: #### 5 8410-2 ####[facility]ATORYCLIA [id number] [address] Platelet mean volume (Bld) [Entitic vol] 11.5 fL Normal 9.0-12.7 [facility] Comment on above: Order Comment: Speci men Type: BLOOD SPECIMENOrdering Facility: [facility] Address: [address] [place] [address] Performed By: #### 5 8410-2 ####[facility]ATORYCLIA [id number] [address] [place] Platelets (Bld) [#/Vol] 343 10*3/uL Normal 150-400 [facility] Comment on above: Order Comment: Speci men Type: BLOOD SPECIMENOrdering Facility: [facility] Address: [address] [place] [address] Performed By: #### 5 8410-2 ####[facility]ATORYCLIA [id number] [address] RBC (Bld) [#/Vol] 3.36 10*6/uL Low 4.20-6.00 [facility] Comment on above: Order Comment: Speci men Type: BLOOD SPECIMENOrdering Facility: [facility] Address: [address] [place] [address] Performed By: #### 5 8410-2 ####[facility]ATORYCLIA [id number] [address] WBC (Bld) [#/Vol] 10.71 10*3/uL Normal 3.70-11.00 [facility] Comment on above: Order Comment: Speci men Type: BLOOD SPECIMENOrdering Facility: [facility] Address: [address] [place] [address] Performed By: #### 5 8410-2 ####[facility]ATORYCLIA [id number] [address] CONSULT PROGon 06-20-2021 CONSULT PROG Normal [facility] HEMOGLOBIN (HGB)on 2 Hemoglobin (Bld) [Mass/Vol] 9.7 g/dL Low 13.0-17.0 [facility] Comment on above: Order Comment: Speci men Type: BLOOD SPECIMENOrdering Facility: [facility] Address: [address] [place] [address] Performed By: #### H GB ####[facility]ATORYCLIA [id number] [address] [place] Magnesium SerPl-mCncon 06-20 Magnesium [Mass/Vol] 2.5 mg/dL High 1.7-2.3 [facility] Comment on above: Order Comment: Speci men Type: BLOOD SPECIMENOrdering Facility: [facility] Address: [address] [place] [address] Performed By: #### 2 4321-2, 77013-1 ####[facility]ATORYCLIA [id number] [address] [place] NURSING PROGon 06-20-2021 NURSING PROG Normal [facility] THERAPY NTon 06-20-2021 THERAPY NT Normal [facility] aPTT PPPon 06-20-2021 aPTT Coag (PPP) [Time] 93.5 s High 23.0-32.4 [facility] Comment on above: Order Comment: Speci men Type: BLOOD SPECIMENOrdering Facility: [facility] Address: [address] [place] [address] Performed By: #### 1 4979-9 ####[facility]ORATORYCLIA [id number] [address] STATES [facility] aPTT Coag (PPP) [Time] 47.1 s High 23.0-32.4 [facility] Comment on above: Order Comment: Speci men Type: BLOOD SPECIMENOrdering Facility: [facility] Address: [address] [place] [address] Performed By: #### 1 4979-9 ####[facility]ORATORYCLIA [id number] [place] [address] [place] Basic metabolic 2000 panelon 06-19-2021 Anion gap [Moles/Vol] 7 mmol/L Low 9-18 [facility] Comment on above: Order Comment: Speci men Type: BLOOD SPECIMENOrdering Facility: [facility] Address: [address] [place] [address] Performed By: #### 2 4321-2 ####[facility]ORATORYCLIA [id number] [place] [address] [place] Calcium [Mass/Vol] 8.1 mg/dL Low 8.5-10.2 [facility] Comment on above: Order Comment: Speci men Type: BLOOD SPECIMENOrdering Facility: [facility] Address: [address] [place] [address] Performed By: #### 2 4321-2 ####[facility]ORATORYCLIA [id number] [place] [address] [place] Chloride [Moles/Vol] 111 mmol/L High 97-105 [facility] Comment on above: Order Comment: Speci men Type: BLOOD SPECIMENOrdering Facility: [facility] Address: [address] [place] [address] Performed By: #### 2 4321-2 ####[facility]ORATORYCLIA [id number] [place] [address] [place] CO2 [Moles/Vol] 24 mmol/L Normal 22-30 [facility] Comment on above: Order Comment: Speci men Type: BLOOD SPECIMENOrdering Facility: [facility] Address: [address] [place] [address] Performed By: #### 2 4321-2 ####[facility]ATORYCLIA [id number] [place] [address] [place] Creatinine [Mass/Vol] 0.71 mg/dL Low 0.73-1.22 [facility] Comment on above: Order Comment: Speci men Type: BLOOD SPECIMENOrdering Facility: [facility] Address: [address] [place] [address] Performed By: #### 2 4321-2 ####[facility]ORATORYCLIA [id number] [place] [address] [place] GFR/1.73 sq M.predicted MDRD (S/P/Bld) [Vol rate/Area] mL/min/{1.73_m2} Normal [facility] Comment on above: Order Comment: Shira feldman Type: BLOOD SPECIMENOrdering Facility: [facility] Address: [address] [place] [address] Result Comment: >60e GFR (Estimated GFR) Units [...] actual GFR. Performed By: #### 2 4321-2 ####[facility]ENTERCLIA [id number] [place] [address] [place] Glucose [Mass/Vol] 110 mg/dL High 74-99 [facility] Comment on above: Order Comment: Shira feldman Type: BLOOD SPECIMENOrdering Facility: [facility] Address: [address] [place] [address] Result Comment: The [place] Diabetes [employer] (ADA) provides guidance for cutoff [...] Standards of Medical Care in Diabetes 2016, [place] [employer]. Diabetes Care. 2016.39(Suppl 1). Performed By: #### 2 4321-2 ####[facility]ORATORYCLIA [id number] [address] [place] Potassium [Moles/Vol] 3.7 mmol/L Normal 3.7-5.1 [facility] Comment on above: Order Comment: Speci men Type: BLOOD SPECIMENOrdering Facility: [facility] Address: [address] [place] [address] Performed By: #### 2 4321-2 ####[facility]ORATORYCLIA [id number] [address] [place] Sodium [Moles/Vol] 142 mmol/L Normal 136-144 [facility] Comment on above: Order Comment: Speci men Type: BLOOD SPECIMENOrdering Facility: [facility] Address: [address] [place] [address] Performed By: #### 2 4321-2 ####[facility]ORATORYCLIA [id number] [address] STATES [facility] Urea nitrogen [Mass/Vol] 26 mg/dL High 9-24 [facility] Comment on above: Order Comment: Speci men Type: BLOOD SPECIMENOrdering Facility: [facility] Address: [address] [place] [address] Performed By: #### 2 4321-2 ####[facility]ORATORYCLIA [id number] [address] STATES OF [facility] CBC panel Auto (Bld)on 06-19 Erythrocyte distribution width (RBC) [Ratio] 15.7 % High 11.5-15.0 [facility] Comment on above: Order Comment: Speci men Type: BLOOD SPECIMENOrdering Facility: [facility] Address: [address] [place] [address] Performed By: #### 5 8410-2 ####[facility]ORATORYCLIA [id number] [address] Hematocrit (Bld) [Volume fraction] 30.9 % Low 39.0-51.0 [facility] Comment on above: Order Comment: Speci men Type: BLOOD SPECIMENOrdering Facility: [facility] Address: [address] [place] [address] Performed By: #### 5 8410-2 ####[facility]ORATORYCLIA [id number] [address] OF [facility] Hemoglobin (Bld) [Mass/Vol] 9.5 g/dL Low 13.0-17.0 [facility] Comment on above: Order Comment: Speci men Type: BLOOD SPECIMENOrdering Facility: [facility] Address: [address] [place] [address] Performed By: #### 5 8410-2 ####[facility]ATORYCLIA [id number] [address] MCH (RBC) [Entitic mass] 28.4 pg Normal 26.0-34.0 [facility] Comment on above: Order Comment: Speci men Type: BLOOD SPECIMENOrdering Facility: [facility] Address: [address] [place] [address] Performed By: #### 5 8410-2 ####[facility]ATORYCLIA [id number] [address] STATES OF [facility] MCHC (RBC) [Mass/Vol] 30.7 g/dL Normal 30.5-36.0 [facility] Comment on above: Order Comment: Speci men Type: BLOOD SPECIMENOrdering Facility: [facility] Address: [address] [place] [address] Performed By: #### 5 8410-2 ####[facility]ATORYCLIA [id number] [address] STATES [facility] MCV (RBC) [Entitic vol] 92.2 fL Normal 80.0-100.0 [facility] Comment on above: Order Comment: Speci men Type: BLOOD SPECIMENOrdering Facility: [facility] Address: [address] [place] [address] Performed By: #### 5 8410-2 ####[facility]ATORYCLIA [id number] [address] Nucleated RBC (Bld) [#/Vol] 10*3/uL Normal <0.01 [facility] Comment on above: Order Comment: Speci men Type: BLOOD SPECIMENOrdering Facility: [facility] Address: [address] [place] [address] Performed By: #### 5 8410-2 ####[facility]ATORYCLIA [id number] [place] [address] [place] Platelet mean volume (Bld) [Entitic vol] 11.7 fL Normal 9.0-12.7 [facility] Comment on above: Order Comment: Speci men Type: BLOOD SPECIMENOrdering Facility: [facility] Address: [address] [place] [address] Performed By: #### 5 8410-2 ####[facility]ATORYCLIA [id number] [address] [place] Platelets (Bld) [#/Vol] 323 10*3/uL Normal 150-400 [facility] Comment on above: Order Comment: Speci men Type: BLOOD SPECIMENOrdering Facility: [facility] Address: [address] [place] [address] Performed By: #### 5 8410-2 ####[facility]ORATORYCLIA [id number] [place] [address] [place] RBC (Bld) [#/Vol] 3.35 10*6/uL Low 4.20-6.00 [facility] Comment on above: Order Comment: Speci men Type: BLOOD SPECIMENOrdering Facility: [facility] Address: [address] [place], [place] [address] Performed By: #### 5 8410-2 ####[facility]ATORYCLIA [id number] [address] [place] WBC (Bld) [#/Vol] 9.53 10*3/uL Normal 3.70-11.00 [facility] Comment on above: Order Comment: Speci men Type: BLOOD SPECIMENOrdering Facility: [facility] Address: [address] [place] [address] Performed By: #### 5 8410-2 ####[facility]ATORYCLIA [id number] [address] HEMOGLOBIN (HGB)on Hemoglobin (Bld) [Mass/Vol] 9.7 g/dL Low 13.0-17.0 [facility] Comment on above: Order Comment: Speci men Type: BLOOD SPECIMENOrdering Facility: [facility] Address: [address] [place] [address] Performed By: #### H GB ####[facility]ORATORYCLIA [id number] [address] Magnesium SerPl-mCncon 06-19 Magnesium [Mass/Vol] 2.5 mg/dL High 1.7-2.3 [facility] Comment on above: Order Comment: Speci men Type: BLOOD SPECIMENOrdering Facility: [facility] Address: [address] [place] [address] Performed By: #### 1 9123-9, 2777-1 ####[facility]ATORYCLIA [id number] [address] NURSING PROGon 06-19-2021 NURSING PROG Normal [facility] Phosphate SerPl-mCncon 06-19 Phosphate [Mass/Vol] 2.6 mg/dL Low 2.7-4.8 [facility] Comment on above: Order Comment: Speci men Type: BLOOD SPECIMENOrdering Facility: [facility] Address: [address] [place] [address] Performed By: #### 1 9123-9, 2777-1 ####[facility]ORATORYCLIA [id number] [address] aPTT PPPon 06-19-2021 aPTT Coag (PPP) [Time] 61.9 s High 23.0-32.4 [facility] Comment on above: Order Comment: Speci men Type: BLOOD SPECIMENOrdering Facility: [facility] Address: [address] [place] [address] Performed By: #### 1 4979-9 ####[facility]ATORYCLIA [id number] [address] aPTT Coag (PPP) [Time] 68.6 s High 23.0-32.4 [facility] Comment on above: Order Comment: Speci men Type: BLOOD SPECIMENOrdering Facility: [facility] Address: [address] [place] [address] Performed By: #### 1 4979-9 ####[facility]ORATORYCLIA [id number] [address] STATES OF [facility] aPTT Coag (PPP) [Time] 83.2 s High 23.0-32.4 [facility] Comment on above: Order Comment: Speci men Type: BLOOD SPECIMENOrdering Facility: [facility] Address: [address] [place] [address] Performed By: #### 1 4979-9 ####[facility]ATORYCLIA [id number] [place] [address] [place] Basic metabolic 2000 panelon 06-18-2021 Anion gap [Moles/Vol] 7 mmol/L Low 9-18 [facility] Comment on above: Order Comment: Speci men Type: BLOOD SPECIMENOrdering Facility: [facility] Address: [address] [place] [address] Performed By: #### 2 4321-2, , 2776-05 ####[facility]ATORYCLIA [id number] [address] [place] Calcium [Mass/Vol] 8.2 mg/dL Low 8.5-10.2 [facility] Comment on above: Order Comment: Speci men Type: BLOOD SPECIMENOrdering Facility: [facility] Address: [address] [place] [address] Performed By: #### 2 4321-2, , 27711-04 ####[facility]ATORYCLIA [id number] [place] [address] [place] Chloride [Moles/Vol] 115 mmol/L High 97-105 [facility] Comment on above: Order Comment: Speci men Type: BLOOD SPECIMENOrdering Facility: [facility] Address: [address] [place] [address] Performed By: #### 2 4321-2, 28908-9, 2776- ####[facility]ATORYCLIA [id number] [address] [place] CO2 [Moles/Vol] 23 mmol/L Normal 22-30 [facility] Comment on above: Order Comment: Speci men Type: BLOOD SPECIMENOrdering Facility: [facility] Address: [address] [place] [address] Performed By: #### 2 4321-2, , 2776-05 ####[facility] POINTIA [id number] [address] [place] Creatinine [Mass/Vol] 0.70 mg/dL Low 0.73-1.22 [facility] Comment on above: Order Comment: Speci men Type: BLOOD SPECIMENOrdering Facility: [facility] Address: [address] [place] [address] Performed By: #### 2 4321-2, , 2776-05 ####[facility]ATORYCLIA [id number] [place] [address] [place] GFR/1.73 sq M.predicted MDRD (S/P/Bld) [Vol rate/Area] mL/min/{1.73_m2} Normal [facility] Comment on above: Order Comment: Speci men Type: BLOOD SPECIMENOrdering Facility: [facility] Address: [address] [place] [address] Result Comment: >60e GFR (Estimated GFR) Units [...] , 2776-05 ####[facility]ORATORYCLIA [id number] [place] [address] [place] Glucose [Mass/Vol] 105 mg/dL High 74-99 [facility] Comment on above: Order Comment: Shira feldman Type: BLOOD SPECIMENOrdering Facility: [facility] Address: [address] [place], [place] [address] Result Comment: The [place] Diabetes Association (ADA) provides guidance for cutoff [...] Standards of Medical Care in Diabetes 2016, [place] [employer]. Diabetes Care. 2016.39(Suppl 1). Performed By: #### 2 4321-2, , 2776-05 ####[facility]ORATORYCLIA [id number] [place] [address] [place] Potassium [Moles/Vol] 4.1 mmol/L Normal 3.7-5.1 [facility] Comment on above: Order Comment: Shira feldman Type: BLOOD SPECIMENOrdering Facility: [facility] Address: [address] [place] [address] Performed By: #### 2 4321-2, , 2776-05 ####[facility]ATORYCLIA [id number] [place] [address] [place] Sodium [Moles/Vol] 145 mmol/L High 136-144 [facility] Comment on above: Order Comment: Speci men Type: BLOOD SPECIMENOrdering Facility: [facility] Address: [address] [place] [address] Performed By: #### 2 4321-2, 51018-3, 2776- ####[facility]ATORYCLIA [id number] [address] [place] Urea nitrogen [Mass/Vol] 27 mg/dL High 9-24 [facility] Comment on above: Order Comment: Speci men Type: BLOOD SPECIMENOrdering Facility: [facility] Address: [address] [place] [address] Performed By: #### 2 4321-2, , 2776-05 ####[facility]ATORYCLIA [id number] [address] STATES OF [facility] CALCIUM IONIZED Bon 06-18-19 Calcium.ionized (BldV) [Mass/Vol] 1.22 mmol/L Normal 1.08-1.30 [facility] Comment on above: Order Comment: Speci men Type: BLOOD SPECIMENOrdering Facility: [facility] Address: [address] [place] [address] Performed By: #### I CA ####[facility]ATORYCLIA [id number] [address] Calcium.ionized adjusted to pH 7.4 (Bld) [Moles/Vol] 1.23 mmol/L Normal 1.08-1.30 [facility] Comment on above: Order Comment: Speci men Type: BLOOD SPECIMENOrdering Facility: [facility] Address: [address] [place] [address] Performed By: #### I CA ####[facility]ATORYCLIA [id number] [address] [place] CBC panel Auto (Bld)on 06-18 Erythrocyte distribution width (RBC) [Ratio] 15.8 % High 11.5-15.0 [facility] Comment on above: Order Comment: Speci men Type: BLOOD SPECIMENOrdering Facility: [facility] Address: [address] [place] [address] Performed By: #### 5 8410-2 ####[facility]ATORYCLIA [id number] [address] Hematocrit (Bld) [Volume fraction] 29.5 % Low 39.0-51.0 [facility] Comment on above: Order Comment: Speci men Type: BLOOD SPECIMENOrdering Facility: [facility] Address: [address] [place] [address] Performed By: #### 5 8410-2 ####[facility]ATORYCLIA [id number] [address] Hemoglobin (Bld) [Mass/Vol] 8.8 g/dL Low 13.0-17.0 [facility] Comment on above: Order Comment: Speci men Type: BLOOD SPECIMENOrdering Facility: [facility] Address: [address] [place] [address] Performed By: #### 5 8410-2 ####[facility]ATORYCLIA [id number] [address] MCH (RBC) [Entitic mass] 27.4 pg Normal 26.0-34.0 [facility] Comment on above: Order Comment: Speci men Type: BLOOD SPECIMENOrdering Facility: [facility] Address: [address] [place] [address] Performed By: #### 5 8410-2 ####[facility]ATORYCLIA [id number] [address] [place] MCHC (RBC) [Mass/Vol] 29.8 g/dL Low 30.5-36.0 [facility] Comment on above: Order Comment: Speci men Type: BLOOD SPECIMENOrdering Facility: [facility] Address: [address] [place] [address] Performed By: #### 5 8410-2 ####[facility]ATORYCLIA [id number] [address] STATES OF [facility] MCV (RBC) [Entitic vol] 91.9 fL Normal 80.0-100.0 [facility] Comment on above: Order Comment: Speci men Type: BLOOD SPECIMENOrdering Facility: [facility] Address: [address] [place] [address] Performed By: #### 5 8410-2 ####[facility]ATORYCLIA [id number] [address] Nucleated RBC (Bld) [#/Vol] 10*3/uL Normal <0.01 [facility] Comment on above: Order Comment: Speci men Type: BLOOD SPECIMENOrdering Facility: [facility] Address: [address] [place] [address] Performed By: #### 5 8410-2 ####[facility] LABORATORYCLIA [id number] [address] Platelet mean volume (Bld) [Entitic vol] 11.9 fL Normal 9.0-12.7 [facility] Comment on above: Order Comment: Speci men Type: BLOOD SPECIMENOrdering Facility: [facility] Address: [address] [place] [address] Performed By: #### 5 8410-2 ####[facility] LABORATORYCLIA [id number] [address] Platelets (Bld) [#/Vol] 291 10*3/uL Normal 150-400 [facility] Comment on above: Order Comment: Speci men Type: BLOOD SPECIMENOrdering Facility: [facility] Address: [address] [place] [address] Performed By: #### 5 8410-2 ####[facility] LABORATORYCLIA [id number] 18 [address] [place] RBC (Bld) [#/Vol] 3.21 10*6/uL Low 4.20-6.00 [facility] Comment on above: Order Comment: Speci men Type: BLOOD SPECIMENOrdering Facility: [facility] Address: [address] [place] [address] Performed By: #### 5 8410-2 ####[facility]ATORYCLIA [id number] [address] WBC (Bld) [#/Vol] 10.19 10*3/uL Normal 3.70-11.00 [facility] Comment on above: Order Comment: Speci men Type: BLOOD SPECIMENOrdering Facility: [facility] Address: [address] [place] [address] Performed By: #### 5 8410-2 ####[facility]ORATORYCLIA [id number] [address] FERRITIN BLDon 06-18-2021 Ferritin [Mass/Vol] 600.9 ng/mL High 30.3-565.7 [facility] Comment on above: Order Comment: Speci men Type: BLOOD SPECIMENOrdering Facility: [facility] Address: [address] [place] [address] Performed By: #### S ERFOL, IRON, FERR ####[facility]ORATORYCLIA [id number] [address] FOLATE SERUMon 06-18-2021 Folate [Mass/Vol] 14.3 ng/mL Normal >4.7 [facility] Comment on above: Order Comment: Speci men Type: BLOOD SPECIMENOrdering Facility: [facility] Address: [address] [place] [address] Performed By: #### S ERFOL, IRON, FERR ####[facility]ATORYCLIA [id number] [address] Gas and Carbon monoxide pane l (BldV)on 06-18-2021 Base excess Calc (BldV) [Moles/Vol] 0.5 mmol/L Normal 0-2 [facility] Comment on above: Order Comment: Speci men Type: VENOUS BLOOD SPECIMENOrdering Facility: [facility] Address: [address] [place] [address] Performed By: #### 2 4344-4 ####[facility]ATORYCLIA [id number] [address] Body temperature 97.34 [degF] Normal [facility] Comment on above: Order Comment: Speci men Type: VENOUS BLOOD SPECIMENOrdering Facility: [facility] Address: [address] [place] [address] Performed By: #### 2 4344-4 ####[facility]ATORYCLIA [id number] [address] CALCIUM IONIZED, PH CORRECTED 1.26 mmol/L Normal 1.08-1.30 [facility] Comment on above: Order Comment: Speci men Type: VENOUS BLOOD SPECIMENOrdering Facility: [facility] Address: [address] [place] [address] Performed By: #### 2 4344-4 ####[facility]ATORYCLIA [id number] [address] Calcium.ionized (BldV) [Mass/Vol] 1.25 mmol/L Normal 1.08-1.30 [facility] Comment on above: Order Comment: Speci men Type: VENOUS BLOOD SPECIMENOrdering Facility: [facility] Address: [address] [place] [address] Performed By: #### 2 4344-4 ####[facility]ORATORYCLIA [id number] [address] OF [facility] Carboxyhemoglobin (BldV) [Mass fraction] 1.5 % Normal 0.0-2.0 [facility] Comment on above: Order Comment: Speci men Type: VENOUS BLOOD SPECIMENOrdering Facility: [facility] Address: [address] [place] [address] Result Comment: Carb oxyhemoglobin Reference Range for Smokers: 2.0-8.0% Performed By: #### 2 4344-4 ####[facility]ORATORYCLIA [id number] [place] [address] [place] CO2 (BldV) [Partial pressure] 38 mm[Hg] Low 42-55 [facility] Comment on above: Order Comment: Speci men Type: VENOUS BLOOD SPECIMENOrdering Facility: [facility] Address: [address] [place] [address] Performed By: #### 2 4344-4 ####[facility] LABORATORYCLIA [id number] [place] [address] [place] CO2 [Moles/Vol] 22.9 mmol/L Low 25-29 [facility] Comment on above: Order Comment: Speci men Type: VENOUS BLOOD SPECIMENOrdering Facility: [facility] Address: [address] [place] [address] Performed By: #### 2 4344-4 ####[facility]ORATORYCLIA [id number] [address] [place] CO2 adjusted to patient's actual temperature (BldV) [Partial pressure] 37 mmHg Low 42-55 [facility] Comment on above: Order Comment: Speci men Type: VENOUS BLOOD SPECIMENOrdering Facility: [facility] Address: [address] [place] [address] Performed By: #### 2 4344-4 ####[facility] LABORATORYCLIA [id number] [place] [address] [place] Glucose [Mass/Vol] 103 mg/dL Normal 60-105 [facility] Comment on above: Order Comment: Speci men Type: VENOUS BLOOD SPECIMENOrdering Facility: [facility] Address: [address] [place] [address] Performed By: #### 2 4344-4 ####[facility]ORATORYCLIA [id number] [place] [address] [place] HCO3 (Bld) [Moles/Vol] 24.4 mmol/L Normal 24-28 [facility] Comment on above: Order Comment: Speci men Type: VENOUS BLOOD SPECIMENOrdering Facility: [facility] Address: [address] [place] [address] Performed By: #### 2 4344-4 ####[facility]ORATORYCLIA [id number] [address] OF [place] Hematocrit (Bld) [Volume fraction] 28.7 % Low 39.0-51.0 [facility] Comment on above: Order Comment: Speci men Type: VENOUS BLOOD SPECIMENOrdering Facility: [facility] Address: [address] [place] [address] Performed By: #### 2 4344-4 ####[facility]ATORYCLIA [id number] [address] OF [place] Hemoglobin (Bld) [Mass/Vol] 9.3 g/dL Low 13.0-17.0 [facility] Comment on above: Order Comment: Speci men Type: VENOUS BLOOD SPECIMENOrdering Facility: [facility] Address: [address] [place] [address] Performed By: #### 2 4344-4 ####[facility]ORATORYCLIA [id number] [address] Methemoglobin (Bld) [Mass fraction] % Normal 0.0-1.5 [facility] Comment on above: Order Comment: Speci men Type: VENOUS BLOOD SPECIMENOrdering Facility: [facility] Address: [address] [place] [address] Performed By: #### 2 4344-4 ####[facility] LABORATORYCLIA [id number] [address] OF [place] O2 THERAPY Ventilator Normal [facility] Comment on above: Order Comment: Speci men Type: VENOUS BLOOD SPECIMENOrdering Facility: [facility] Address: [address] [place] [address] Performed By: #### 2 4344-4 ####[facility]ORATORYCLIA [id number] [address] Oxygen (BldV) [Partial pressure] 37 mm[Hg] Normal 35-45 [facility] Comment on above: Order Comment: Speci men Type: VENOUS BLOOD SPECIMENOrdering Facility: [facility] Address: [address] [place] [address] Performed By: #### 2 4344-4 ####[facility]ORATORYCLIA [id number] [address] OF [facility] Oxygen adjusted to patient's actual temperature (BldV) [Partial pressure] 35.1 mmHg Normal 35-45 [facility] Comment on above: Order Comment: Speci men Type: VENOUS BLOOD SPECIMENOrdering Facility: [facility] Address: [address] [place] [address] Performed By: #### 2 4344-4 ####[facility] LABORATORYCLIA [id number] [address] Oxygen saturation in Blood 67.1 % Normal 60-85 [facility] Comment on above: Order Comment: Speci men Type: VENOUS BLOOD SPECIMENOrdering Facility: [facility] Address: [address] [place] [address] Performed By: #### 2 4344-4 ####[facility]ATORYCLIA [id number] [address] Oxyhemoglobin (BldV) [Mass fraction] 66 % Normal 60-85 [facility] Comment on above: Order Comment: Speci men Type: VENOUS BLOOD SPECIMENOrdering Facility: [facility] Address: [address] [place] [address] Performed By: #### 2 4344-4 ####[facility]ORATORYCLIA [id number] [address] [place] pH (BldV) 7.42 [pH] Normal 7.32-7.42 [facility] Comment on above: Order Comment: Speci men Type: VENOUS BLOOD SPECIMENOrdering Facility: [facility] Address: [address] [place] [address] Performed By: #### 2 4344-4 ####[facility] LABORATORYCLIA [id number] [address] [place] pH adjusted to patient's actual temperature (BldV) 7.43 High 7.32-7.42 [facility] Comment on above: Order Comment: Speci men Type: VENOUS BLOOD SPECIMENOrdering Facility: [facility] Address: [address] [place] [address] Performed By: #### 2 4344-4 ####[facility]ORATORYCLIA [id number] [address] [place] Potassium [Moles/Vol] 4.0 mmol/L Normal 3.5-5.0 [facility] Comment on above: Order Comment: Speci men Type: VENOUS BLOOD SPECIMENOrdering Facility: [facility] Address: [address] [place] [address] Performed By: #### 2 4344-4 ####[facility]ORATORYCLIA [id number] [address] STATES OF [facility] Sodium [Moles/Vol] 146 mmol/L High 136-144 [facility] Comment on above: Order Comment: Speci men Type: VENOUS BLOOD SPECIMENOrdering Facility: [facility] Address: [address] [place] [address] Performed By: #### 2 4344-4 ####[facility]ATORYCLIA [id number] [address] [place] HEMOGLOBIN (HGB)on Hemoglobin (Bld) [Mass/Vol] 9.2 g/dL Low 13.0-17.0 [facility] Comment on above: Order Comment: Speci men Type: BLOOD SPECIMENOrdering Facility: [facility] Address: [address] [place] [address] Performed By: #### H GB ####[facility]ORATORYCLIA [id number] [address] [place] IRON + TIBCon 06-18-2021 Iron [Mass/Vol] 27 ug/dL Low 41-186 [facility] Comment on above: Order Comment: Speci men Type: BLOOD SPECIMENOrdering Facility: [facility] Address: [address] [place] [address] Performed By: #### S ERFOL, IRON, FERR ####[facility]ORATORYCLIA [id number] [address] Iron binding capacity [Mass/Vol] 141 ug/dL Low 232-386 [facility] Comment on above: Order Comment: Speci men Type: BLOOD SPECIMENOrdering Facility: [facility] Address: [address] [place] [address] Performed By: #### S ERFOL, IRON, FERR ####[facility]ATORYCLIA [id number] [address] Iron saturation [Mass fraction] 19 % Normal 15-57 [facility] Comment on above: Order Comment: Speci men Type: BLOOD SPECIMENOrdering Facility: [facility] Address: [address] [place] [address] Performed By: #### S ERFOL, IRON, FERR ####[facility]ORATORYCLIA [id number] [address] Magnesium SerPl-mCncon 06-18 Magnesium [Mass/Vol] 2.5 mg/dL High 1.7-2.3 [facility] Comment on above: Order Comment: Speci men Type: BLOOD SPECIMENOrdering Facility: [facility] Address: [address] [place] [address] Performed By: #### 2 4321-2, , 2776-05 ####[facility]ATORYCLIA [id number] [address] [place] NURSING PROGon 06-18-2021 NURSING PROG Normal [facility] Phosphate SerPl-mCncon 06-18 Phosphate [Mass/Vol] 3.0 mg/dL Normal 2.7-4.8 [facility] Comment on above: Order Comment: Speci men Type: BLOOD SPECIMENOrdering Facility: [facility] Address: [address] [place] [address] Performed By: #### 2 4321-2, , 2776-05 ####[facility]ORATORYCLIA [id number] [address] [place] THERAPY NTon 06-18-2021 THERAPY NT Normal [facility] aPTT PPPon 06-18-2021 aPTT Coag (PPP) [Time] 43.0 s High 23.0-32.4 [facility] Comment on above: Order Comment: Speci men Type: BLOOD SPECIMENOrdering Facility: [facility] Address: [address] [place] [address] Performed By: #### 1 4979-9 ####[facility]ORATORYCLIA [id number] [address] aPTT Coag (PPP) [Time] 60.6 s High 23.0-32.4 [facility] Comment on above: Order Comment: Speci men Type: BLOOD SPECIMENOrdering Facility: [facility] Address: [address] [place] [address] Performed By: #### 1 4979-9 ####[facility]ENTERCLIA [id number] [address] aPTT Coag (PPP) [Time] 46.4 s High 23.0-32.4 [facility] Comment on above: Order Comment: Speci men Type: BLOOD SPECIMENOrdering Facility: [facility] Address: [address] [place] [address] Performed By: #### 1 4979-9 ####[facility]ORATORYCLIA [id number] [address] OF [facility] Basic metabolic 2000 panelon 06-17-2021 Anion gap [Moles/Vol] 7 mmol/L Low 9-18 [facility] Comment on above: Order Comment: Speci men Type: BLOOD SPECIMENOrdering Facility: [facility] Address: [address] [place] [address] Performed By: #### 2 951-2, 55066-9, 2777-1, 97585-3 ####[facility]ORATORYCLIA [id number] [place] [address] [place] Calcium [Mass/Vol] 8.1 mg/dL Low 8.5-10.2 [facility] Comment on above: Order Comment: Speci men Type: BLOOD SPECIMENOrdering Facility: [facility] Address: [address] [place] [address] Performed By: #### 2 951-2, 41611-3, 2776-1, 97043-6 ####[facility]ORATORYCLIA [id number] [place] [address] [place] Chloride [Moles/Vol] 113 mmol/L High 97-105 [facility] Comment on above: Order Comment: Speci men Type: BLOOD SPECIMENOrdering Facility: [facility] Address: [address] [place] [address] Performed By: #### 2 951-2, , 2776-05, 94503-2 ####[facility]ATORYCLIA [id number] [place] [address] [place] CO2 [Moles/Vol] 25 mmol/L Normal 22-30 [facility] Comment on above: Order Comment: Speci men Type: BLOOD SPECIMENOrdering Facility: [facility] Address: [address] [place] [address] Performed By: #### 2 951-2, , 2776-05, 74755-4 ####[facility]ATORYCLIA [id number] [place] [address] [place] Creatinine [Mass/Vol] 0.70 mg/dL Low 0.73-1.22 [facility] Comment on above: Order Comment: Speci men Type: BLOOD SPECIMENOrdering Facility: [facility] Address: [address] [place] [address] Performed By: #### 2 951-2, , 2776-05, 01303-4 ####[facility]ORATORYCLIA [id number] [place] [address] [place] GFR/1.73 sq M.predicted MDRD (S/P/Bld) [Vol rate/Area] mL/min/{1.73_m2} Normal [facility] Comment on above: Order Comment: Shira feldman Type: BLOOD SPECIMENOrdering Facility: [facility] Address: [address] [place], [place] [address] Result Comment: >60e GFR (Estimated GFR) Units [...] actual GFR. Performed By: #### 2 951-2, 71237-3, 2777-1, 05935-0 ####[facility]ATORYCLIA [id number] [place] [address] [place] Glucose [Mass/Vol] 122 mg/dL High 74-99 [facility] Comment on above: Order Comment: Shira feldman Type: BLOOD SPECIMENOrdering Facility: [facility] Address: [address] [place], [place] [address] Result Comment: The [place] [employer] (ADA) provides guidance for cutoff [...] Standards of Medical Care in Diabetes 2016, [place] [employer]. Diabetes Care. 2016.39(Suppl 1). Performed By: #### 2 951-2, 25078-0, 2777-1, 07417-2 ####[facility]ORATORYCLIA [id number] [address] STATES OF [facility] Potassium [Moles/Vol] 3.5 mmol/L Low 3.7-5.1 [facility] Comment on above: Order Comment: Speci men Type: BLOOD SPECIMENOrdering Facility: [facility] Address: [address] [place] [address] Performed By: #### 2 951-2, 45191-8, 2777-1, 58046-7 ####[facility]ORATORYCLIA [id number] [address] [place] Urea nitrogen [Mass/Vol] 27 mg/dL High 9- [facility] Comment on above: Order Comment: Speci men Type: BLOOD SPECIMENOrdering Facility: [facility] Address: [address] [place] [address] Performed By: #### 2 951-2, 98845-7, 2777-1, 84355-2 ####[facility]ENTERCLIA [id number] [address] OF [facility] CASE MANAGEMon 06-17-2021 CASE MANAGEM Normal [facility] CBC panel Auto (Bld)on 06-17 Erythrocyte distribution width (RBC) [Ratio] 15.9 % High 11.5-15.0 [facility] Comment on above: Order Comment: Speci men Type: BLOOD SPECIMENOrdering Facility: [facility] Address: [address] [place] [address] Performed By: #### 5 8410-2 ####[facility]ORATORYCLIA [id number] [address] Hematocrit (Bld) [Volume fraction] 28.9 % Low 39.0-51.0 [facility] Comment on above: Order Comment: Speci men Type: BLOOD SPECIMENOrdering Facility: [facility] Address: [address] [place] [address] Performed By: #### 5 8410-2 ####[facility]ORATORYCLIA [id number] [address] Hemoglobin (Bld) [Mass/Vol] 8.8 g/dL Low 13.0-17.0 [facility] Comment on above: Order Comment: Speci men Type: BLOOD SPECIMENOrdering Facility: [facility] Address: [address] [place] [address] Performed By: #### 5 8410-2 ####[facility]ORATORYCLIA [id number] [address] MCH (RBC) [Entitic mass] 28.4 pg Normal 26.0-34.0 [facility] Comment on above: Order Comment: Speci men Type: BLOOD SPECIMENOrdering Facility: [facility] Address: [address] [place] [address] Performed By: #### 5 8410-2 ####[facility]ORATORYCLIA [id number] [address] MCHC (RBC) [Mass/Vol] 30.4 g/dL Low 30.5-36.0 [facility] Comment on above: Order Comment: Speci men Type: BLOOD SPECIMENOrdering Facility: [facility] Address: [address] [place] [address] Performed By: #### 5 8410-2 ####[facility]ATORYCLIA [id number] [address] MCV (RBC) [Entitic vol] 93.2 fL Normal 80.0-100.0 [facility] Comment on above: Order Comment: Speci men Type: BLOOD SPECIMENOrdering Facility: [facility] Address: [address] [place] [address] Performed By: #### 5 8410-2 ####[facility]ORATORYCLIA [id number] [address] Nucleated RBC (Bld) [#/Vol] 10*3/uL Normal <0.01 [facility] Comment on above: Order Comment: Speci men Type: BLOOD SPECIMENOrdering Facility: [facility] Address: [address] Performed By: #### 5 8410-2 ####[facility]ORATORYCLIA [id number] [address] Platelet mean volume (Bld) [Entitic vol] 11.9 fL Normal 9.0-12.7 [facility] Comment on above: Order Comment: Speci men Type: BLOOD SPECIMENOrdering Facility: [facility] Address: [address] [place] [address] Performed By: #### 5 8410-2 ####[facility]ORATORYCLIA [id number] [address] OF [facility] Platelets (Bld) [#/Vol] 257 10*3/uL Normal 150-400 [facility] Comment on above: Order Comment: Speci men Type: BLOOD SPECIMENOrdering Facility: [facility] Address: [address] [place] [address] Performed By: #### 5 8410-2 ####[facility]ATORYCLIA [id number] [address] [place] RBC (Bld) [#/Vol] 3.10 10*6/uL Low 4.20-6.00 [facility] Comment on above: Order Comment: Speci men Type: BLOOD SPECIMENOrdering Facility: [facility] Address: [address] [place] [address] Performed By: #### 5 8410-2 ####[facility]ORATORYCLIA [id number] [address] [place] WBC (Bld) [#/Vol] 10.54 10*3/uL Normal 3.70-11.00 [facility] Comment on above: Order Comment: Speci men Type: BLOOD SPECIMENOrdering Facility: [facility] Address: [address] [place] [address] Performed By: #### 5 8410-2 ####[facility]ORATORYCLIA [id number] [address] HEMOGLOBIN (HGB)on Hemoglobin (Bld) [Mass/Vol] 8.8 g/dL Low 13.0-17.0 [facility] Comment on above: Order Comment: Speci men Type: BLOOD SPECIMENOrdering Facility: [facility] Address: [address] [place] [address] Performed By: #### H GB ####[facility]ORATORYCLIA [id number] [address] OF [facility] Magnesium SerPl-mCncon 06-17 Magnesium [Mass/Vol] 2.5 mg/dL High 1.7-2.3 [facility] Comment on above: Order Comment: Speci men Type: BLOOD SPECIMENOrdering Facility: [facility] Address: [address] [place] [address] Performed By: #### 2 951-2, 78577-4, 2777-1, 99963-5 ####[facility]ORATORYCLIA [id number] [address] NURSING PROGon 06-17-2021 NURSING PROG Normal [facility] NURSING PROG Normal [facility] NURSING PROG Normal [facility] Phosphate SerPl-mCncon 06-17 Phosphate [Mass/Vol] 1.9 mg/dL Low 2.7-4.8 [facility] Comment on above: Order Comment: Speci men Type: BLOOD SPECIMENOrdering Facility: [facility] Address: [address] [place] [address] Performed By: #### 2 951-2, 24495-9, 2777-1, 88810-7 ####[facility]ATORYCLIA [id number] [address] OF [facility] Sodium SerPl-sCncon 06-17-19 22 Sodium [Moles/Vol] 144 mmol/L Normal 136-144 [facility] Comment on above: Order Comment: Speci men Type: BLOOD SPECIMENOrdering Facility: [facility] Address: [address] [place] [address] Performed By: #### 2 951-2 ####[facility] LABORATORYCLIA [id number] [address] STATES OF [facility] Sodium [Moles/Vol] 145 mmol/L High 136-144 [facility] Comment on above: Order Comment: Speci men Type: BLOOD SPECIMENOrdering Facility: [facility] Address: [address] [place] [address] Performed By: #### 2 951-2, 56029-8, 2777-1, 93155-0 ####[facility]ATORYCLIA [id number] [place] [address] [place] aPTT PPPon 06-17-2021 aPTT Coag (PPP) [Time] 55.8 s High 23.0-32.4 [facility] Comment on above: Order Comment: Speci men Type: BLOOD SPECIMENOrdering Facility: [facility] Address: [address] [place] [address] Performed By: #### 1 4979-9 ####[facility]ATORYCLIA [id number] [address] [place] ARTERIAL BLOOD GASESon 06-16 Base excess Calc (Bld) [Moles/Vol] 3 mmol/L High 0-2 [facility] Comment on above: Order Comment: Speci men Type: ARTERIAL BLOOD SPECIMENOrdering Facility: [facility] Address: [address] [place] [address] Performed By: #### A LLBG ####[facility]ORATORYCLIA [id number] [address] [place] Body temperature 99.14 [degF] Normal [facility] Comment on above: Order Comment: Speci men Type: ARTERIAL BLOOD SPECIMENOrdering Facility: [facility] Address: [address] [place] [address] Performed By: #### A LLBG ####[facility]ORATORYCLIA [id number] [address] [place] CALCIUM IONIZED, PH CORRECTED 1.21 mmol/L Normal 1.08-1.30 [facility] Comment on above: Order Comment: Speci men Type: ARTERIAL BLOOD SPECIMENOrdering Facility: [facility] Address: [address] [place] [address] Performed By: #### A LLBG ####[facility]ATORYCLIA [id number] [place] [address] [place] Calcium.ionized (BldV) [Mass/Vol] 1.17 mmol/L Normal 1.08-1.30 [facility] Comment on above: Order Comment: Speci men Type: ARTERIAL BLOOD SPECIMENOrdering Facility: [facility] Address: [address] [place] [address] Performed By: #### A LLBG ####[facility]ATORYCLIA [id number] [address] [place] Carboxyhemoglobin (BldA) [Mass fraction] 1.4 % Normal 0.0-2.0 [facility] Comment on above: Order Comment: Speci men Type: ARTERIAL BLOOD SPECIMENOrdering Facility: [facility] Address: [address] [place] [address] Result Comment: Carb oxyhemoglobin Reference Range for Smokers: 2.0-8.0% Performed By: #### A LLBG ####[facility]ATORYCLIA [id number] [place] [address] [place] CO2 (Bld) [Partial pressure] 38 mm Hg Normal 36-46 [facility] Comment on above: Order Comment: Speci men Type: ARTERIAL BLOOD SPECIMENOrdering Facility: [facility] Address: [address] [place] [address] Performed By: #### A LLBG ####[facility]ATORYCLIA [id number] [place] [address] [place] CO2 [Moles/Vol] 24.5 mmol/L Normal 22-28 [facility] Comment on above: Order Comment: Speci men Type: ARTERIAL BLOOD SPECIMENOrdering Facility: [facility] Address: [address] [place] [address] Performed By: #### A LLBG ####[facility]ATORYCLIA [id number] [address] CO2 adjusted to patient's actual temperature (Bld) [Partial pressure] 38 mmHg Normal 36-46 [facility] Comment on above: Order Comment: Speci men Type: ARTERIAL BLOOD SPECIMENOrdering Facility: [facility] Address: [address] [place] [address] Performed By: #### A LLBG ####[facility]ATORYCLIA [id number] [address] [place] Glucose [Mass/Vol] 147 mg/dL High 60-105 [facility] Comment on above: Order Comment: Speci men Type: ARTERIAL BLOOD SPECIMENOrdering Facility: [facility] Address: [address] [place] [address] Performed By: #### A LLBG ####[facility]ATORYCLIA [id number] [address] HCO3 (Bld) [Moles/Vol] 27 mmol/L High 22-26 [facility] Comment on above: Order Comment: Speci men Type: ARTERIAL BLOOD SPECIMENOrdering Facility: [facility] Address: [address] [place] [address] Performed By: #### A LLBG ####[facility]ATORYCLIA [id number] [address] [place] Hematocrit (Bld) [Volume fraction] 31.8 % Low 39.0-51.0 [facility] Comment on above: Order Comment: Speci men Type: ARTERIAL BLOOD SPECIMENOrdering Facility: [facility] Address: [address] [place] [address] Performed By: #### A LLBG ####[facility]ATORYCLIA [id number] [address] [place] Hemoglobin (Bld) [Mass/Vol] 10.3 g/dL Low 13.0-17.0 [facility] Comment on above: Order Comment: Speci men Type: ARTERIAL BLOOD SPECIMENOrdering Facility: [facility] Address: [address] [address] Performed By: #### A LLBG ####[facility]ORATORYCLIA [id number] [address] Methemoglobin (Bld) [Mass fraction] 1.0 % Normal 0.0-1.5 [facility] Comment on above: Order Comment: Speci men Type: ARTERIAL BLOOD SPECIMENOrdering Facility: [facility] Address: [address] [place] [address] Performed By: #### A LLBG ####[facility]ORATORYCLIA [id number] [address] O2 THERAPY Ventilator Normal [facility] Comment on above: Order Comment: Speci men Type: ARTERIAL BLOOD SPECIMENOrdering Facility: [facility] Address: [address] [place] [address] Performed By: #### A LLBG ####[facility]ORATORYCLIA [id number] [address] Oxygen (Bld) [Partial pressure] 78 mm Hg Low 85-95 [facility] Comment on above: Order Comment: Speci men Type: ARTERIAL BLOOD SPECIMENOrdering Facility: [facility] Address: [address] [place] [address] Performed By: #### A LLBG ####[facility]ORATORYCLIA [id number] [address] Oxygen adjusted to patient's actual temperature (Bld) [Partial pressure] 79.7 mmHg Low 85-95 [facility] Comment on above: Order Comment: Speci men Type: ARTERIAL BLOOD SPECIMENOrdering Facility: [facility] Address: [address] [address] Performed By: #### A LLBG ####[facility]ORATORYCLIA [id number] [address] [place] OXYGEN SATURATION, ARTERIAL 96 % Normal 95-98 [facility] Comment on above: Order Comment: Speci men Type: ARTERIAL BLOOD SPECIMENOrdering Facility: [facility] Address: [address] [place] [address] Performed By: #### A LLBG ####[facility]ATORYCLIA [id number] [address] [place] Oxyhemoglobin (BldA) [Mass fraction] 94 % Low 95- [facility] Comment on above: Order Comment: Speci men Type: ARTERIAL BLOOD SPECIMENOrdering Facility: [facility] Address: [address] [place] [address] Performed By: #### A LLBG ####[facility]ATORYCLIA [id number] [place] [address] [place] pH (Bld) 7.47 [pH] High 7.35-7.45 [facility] Comment on above: Order Comment: Speci men Type: ARTERIAL BLOOD SPECIMENOrdering Facility: [facility] Address: [address] [place] [address] Performed By: #### A LLBG ####[facility]ORATORYCLIA [id number] [address] STATES [facility] pH adjusted to patient's actual temperature (Bld) 7.46 High 7.35-7.45 [facility] Comment on above: Order Comment: Speci men Type: ARTERIAL BLOOD SPECIMENOrdering Facility: [facility] Address: [address] [place] [address] Performed By: #### A LLBG ####[facility]ATORYCLIA [id number] [place] [address] [place] Potassium [Moles/Vol] 3.7 mmol/L Normal 3.5-5.0 [facility] Comment on above: Order Comment: Speci men Type: ARTERIAL BLOOD SPECIMENOrdering Facility: [facility] Address: [address] [place] [address] Performed By: #### A LLBG ####[facility]ATORYCLIA [id number] [address] [place] Sodium [Moles/Vol] 155 mmol/L High 136-144 [facility] Comment on above: Order Comment: Speci men Type: ARTERIAL BLOOD SPECIMENOrdering Facility: [facility] Address: [address] [place] [address] Performed By: #### A LLBG ####[facility]ORATORYCLIA [id number] [address] [place] Bacteria Spec Resp Culton Bacteria identified Respiratory culture Nom (Unsp spec) CULTURE, RESPIRATORY: Rare Normal respiratory chris present ORGANISM ID: 1 Few Yeast, not cryptococcus neoformans GRAM STAIN: No organisms seen Few Polymorphonuclear leukocytes Few Epithelial cells Abnormal [facility] Comment on above: Performed By: #### 3 2355-0 ####[facility]ATORYCLIA [id number] [place] [address] [place] Basic metabolic 2000 panelon 06-16-2021 Anion gap [Moles/Vol] 9 mmol/L Normal 9-18 [facility] Comment on above: Order Comment: Speci men Type: BLOOD SPECIMENOrdering Facility: [facility] Address: [address] [place] [address] Performed By: #### 2 4321-2 ####[facility]ATORYCLIA [id number] [place] [address] [place] Calcium [Mass/Vol] 8.4 mg/dL Low 8.5-10.2 [facility] Comment on above: Order Comment: Speci men Type: BLOOD SPECIMENOrdering Facility: [facility] Address: [address] [place] [address] Performed By: #### 2 4321-2 ####[facility]ORATORYCLIA [id number] [place] [address] [place] Chloride [Moles/Vol] 120 mmol/L High 97-105 [facility] Comment on above: Order Comment: Speci men Type: BLOOD SPECIMENOrdering Facility: [facility] Address: [address] [place] [address] Performed By: #### 2 4321-2 ####[facility]ORATORYCLIA [id number] [address] STATES OF [facility] CO2 [Moles/Vol] 27 mmol/L Normal 22-30 [facility] Comment on above: Order Comment: Speci men Type: BLOOD SPECIMENOrdering Facility: [facility] Address: [address] [place] [address] Performed By: #### 2 4321-2 ####[facility]ATORYCLIA [id number] [address] [place] Creatinine [Mass/Vol] 0.75 mg/dL Normal 0.73-1.22 [facility] Comment on above: Order Comment: Speci men Type: BLOOD SPECIMENOrdering Facility: [facility] Address: [address] [place] [address] Performed By: #### 2 4321-2 ####[facility]ENTERCLIA [id number] [address] [place] GFR/1.73 sq M.predicted MDRD (S/P/Bld) [Vol rate/Area] mL/min/{1.73_m2} Normal [facility] Comment on above: Order Comment: Speci men Type: BLOOD SPECIMENOrdering Facility: [facility] Address: [address] [place] [address] Result Comment: >60e GFR (Estimated GFR) Units [...] 2 4321-2 ####[facility]ATORYCLIA [id number] [address] [place] Glucose [Mass/Vol] 160 mg/dL High 74-99 [facility] Comment on above: Order Comment: Speci men Type: BLOOD SPECIMENOrdering Facility: [facility] Address: [address] [place] [address] Result Comment: The [place] [employer] (ADA) provides guidance for cutoff [...] Standards of Medical Care in Diabetes 2016, [place] [employer]. Diabetes Care. 2016.39(Suppl 1). Performed By: #### 2 4321-2 ####[facility]ORATORYCLIA [id number] [place] [address] [place] Potassium [Moles/Vol] 3.1 mmol/L Low 3.7-5.1 [facility] Comment on above: Order Comment: Shira men Type: BLOOD SPECIMENOrdering Facility: [facility] Address: [address] [place] [address] Performed By: #### 2 4321-2 ####[facility]ATORYCLIA [id number] [place] [address] [place] Sodium [Moles/Vol] 156 mmol/L High 136-144 [facility] Comment on above: Order Comment: Speci men Type: BLOOD SPECIMENOrdering Facility: [facility] Address: [address] [place] [address] Performed By: #### 2 4321-2 ####[facility]ORATORYCLIA [id number] [place] [address] [place] Urea nitrogen [Mass/Vol] 33 mg/dL High 9-24 [facility] Comment on above: Order Comment: Speci men Type: BLOOD SPECIMENOrdering Facility: [facility] Address: [address] [place] [address] Performed By: #### 2 4321-2 ####[facility]ORATORYCLIA [id number] [address] CASE MANAGEMon 06-16-2021 CASE MANAGEM Normal [facility] CBC panel Auto (Bld)on 06-16 Erythrocyte distribution width (RBC) [Ratio] 15.9 % High 11.5-15.0 [facility] Comment on above: Order Comment: Speci men Type: BLOOD SPECIMENOrdering Facility: [facility] Address: [address] [place] [address] Performed By: #### 5 8410-2 ####[facility]ORATORYCLIA [id number] [address] STATES [facility] Hematocrit (Bld) [Volume fraction] 34.6 % Low 39.0-51.0 [facility] Comment on above: Order Comment: Speci men Type: BLOOD SPECIMENOrdering Facility: [facility] Address: [address] [place] [address] Performed By: #### 5 8410-2 ####[facility]ORATORYCLIA [id number] [address] Hemoglobin (Bld) [Mass/Vol] 10.2 g/dL Low 13.0-17.0 [facility] Comment on above: Order Comment: Speci men Type: BLOOD SPECIMENOrdering Facility: [facility] Address: [address] [place] [address] Performed By: #### 5 8410-2 ####[facility]ORATORYCLIA [id number] [address] MCH (RBC) [Entitic mass] 28.5 pg Normal 26.0-34.0 [facility] Comment on above: Order Comment: Speci men Type: BLOOD SPECIMENOrdering Facility: [facility] Address: [address] [place] [address] Performed By: #### 5 8410-2 ####[facility]ORATORYCLIA [id number] [address] STATES [facility] MCHC (RBC) [Mass/Vol] 29.5 g/dL Low 30.5-36.0 [facility] Comment on above: Order Comment: Speci men Type: BLOOD SPECIMENOrdering Facility: [facility] Address: [address] [place] [address] Performed By: #### 5 8410-2 ####[facility]ORATORYCLIA [id number] [address] STATES OF [facility] MCV (RBC) [Entitic vol] 96.6 fL Normal 80.0-100.0 [facility] Comment on above: Order Comment: Speci men Type: BLOOD SPECIMENOrdering Facility: [facility] Address: [address] [place] [address] Performed By: #### 5 8410-2 ####[facility]ATORYCLIA [id number] [address] Nucleated RBC (Bld) [#/Vol] 10*3/uL Normal <0.01 [facility] Comment on above: Order Comment: Speci men Type: BLOOD SPECIMENOrdering Facility: [facility] Address: [address] [place] [address] Performed By: #### 5 8410-2 ####[facility]ATORYCLIA [id number] [address] [place] Platelet mean volume (Bld) [Entitic vol] 11.9 fL Normal 9.0-12.7 [facility] Comment on above: Order Comment: Speci men Type: BLOOD SPECIMENOrdering Facility: [facility] Address: [address] [place] [address] Performed By: #### 5 8410-2 ####[facility]ATORYCLIA [id number] [address] [place] Platelets (Bld) [#/Vol] 269 10*3/uL Normal 150-400 [facility] Comment on above: Order Comment: Speci men Type: BLOOD SPECIMENOrdering Facility: [facility] Address: [address] [place] [address] Performed By: #### 5 8410-2 ####[facility]ATORYCLIA [id number] [address] STATES OF [facility] RBC (Bld) [#/Vol] 3.58 10*6/uL Low 4.20-6.00 [facility] Comment on above: Order Comment: Speci men Type: BLOOD SPECIMENOrdering Facility: [facility] Address: [address] [place] [address] Performed By: #### 5 8410-2 ####[facility]ATORYCLIA [id number] [address] WBC (Bld) [#/Vol] 13.11 10*3/uL High 3.70-11.00 [facility] Comment on above: Order Comment: Speci men Type: BLOOD SPECIMENOrdering Facility: [facility] Address: [address] [place] [address] Performed By: #### 5 8410-2 ####[facility]ATORYCLIA [id number] [address] [place] CONSULTon 06-16-2021 CONSULT Normal [facility] CONSULT PROGon 06-16-2021 CONSULT PROG Normal [facility] CT BRAIN WO IVCONon 06-16-[address] BRAIN WO IVCON Normal [facility] HEMOGLOBIN (HGB)on 2 Hemoglobin (Bld) [Mass/Vol] 8.9 g/dL Low 13.0-17.0 [facility] Comment on above: Order Comment: Speci men Type: BLOOD SPECIMENOrdering Facility: [facility] Address: [address] [place] [address] Performed By: #### H GB ####[facility]ATORYCLIA [id number] [address] OF [facility] Hemoglobin (Bld) [Mass/Vol] 9.6 g/dL Low 13.0-17.0 [facility] Comment on above: Order Comment: Speci men Type: BLOOD SPECIMENOrdering Facility: [facility] Address: [address] [place] [address] Performed By: #### H GB ####[facility]ATORYCLIA [id number] [address] [place] Magnesium SerPl-mCncon 06-16 Magnesium [Mass/Vol] 2.7 mg/dL High 1.7-2.3 [facility] Comment on above: Order Comment: Speci men Type: BLOOD SPECIMENOrdering Facility: [facility] Address: [address] [place] [address] Performed By: #### 1 9123-9 ####[facility]ATORYCLIA [id number] [address] [place] NURSING PROGon 06-16-2021 NURSING PROG Normal [facility] NUTRITIONon 06-16-2021 NUTRITION Normal [facility] Phosphate SerPl-mCncon 06-16 Phosphate [Mass/Vol] 1.4 mg/dL Low 2.7-4.8 [facility] Comment on above: Order Comment: Speci men Type: BLOOD SPECIMENOrdering Facility: [facility] Address: [address] [place] [address] Performed By: #### 2 777-1 ####[facility]ORATORYCLIA [id number] [address] [place] STAPH AUREUS PCRon 2 S. aureus and MRSA panel MEGAN+probe (Nose) Normal Negative [facility] Comment on above: Order Comment: Speci men Type: SWAB OF INTERNAL NOSEOrdering Facility: [facility] Address: [address] [place] [address] Result Comment: Nega tive for Staphylococcus aureus by PCR.Negative for MRSA by PCR Performed By: #### S APCR ####[facility]ATORYCLIA [id number] [address] [place] Sodium SerPl-sCncon 06-16-19 Sodium [Moles/Vol] 150 mmol/L High 136-144 [facility] Comment on above: Order Comment: Speci men Type: BLOOD SPECIMENOrdering Facility: [facility] Address: [address] [place] [address] Performed By: #### 2 951-2 ####[facility]ATORYCLIA [id number] [place] [address] [place] Sodium [Moles/Vol] 153 mmol/L High 136-144 [facility] Comment on above: Order Comment: Speci men Type: BLOOD SPECIMENOrdering Facility: [facility] Address: [address] [place] [address] Performed By: #### 2 951-2 ####[facility]ATORYCLIA [id number] [address] [place] Sodium [Moles/Vol] 158 mmol/L High 136-144 [facility] Comment on above: Order Comment: Speci men Type: BLOOD SPECIMENOrdering Facility: [facility] Address: [address] [place] [address] Performed By: #### 2 951-2 ####[facility]ATORYCLIA [id number] [address] [place] aPTT PPPon 06-16-2021 aPTT Coag (PPP) [Time] 61.8 s High 23.0-32.4 [facility] Comment on above: Order Comment: Speci men Type: BLOOD SPECIMENOrdering Facility: [facility] Address: [address] [place] [address] Performed By: #### 1 4979-9 ####[facility]ATORYCLIA [id number] [address] [place] aPTT Coag (PPP) [Time] 57.6 s High 23.0-32.4 [facility] Comment on above: Order Comment: Speci men Type: BLOOD SPECIMENOrdering Facility: [facility] Address: [address] [place] [address] Performed By: #### 1 4979-9 ####[facility]ATORYCLIA [id number] [address] [place] ALLIED HEALTHon 06-15-2021 ALLIED HEALTH Normal [facility] ALLIED HEALTH Normal [facility] ALLIED HEALTH Normal [facility] ALLIED HEALTH Normal [facility] ARTERIAL BLOOD GASESon 06-15 Base excess Calc (Bld) [Moles/Vol] 3 mmol/L High 0-2 [facility] Comment on above: Order Comment: Speci men Type: ARTERIAL BLOOD SPECIMENOrdering Facility: [facility] Address: [address] [place] [address] Performed By: #### A LLBG ####[facility]ATORYCLIA [id number] [address] [place] Body temperature 99.5 [degF] Normal [facility] Comment on above: Order Comment: Speci men Type: ARTERIAL BLOOD SPECIMENOrdering Facility: [facility] Address: [address] [place] [address] Performed By: #### A LLBG ####[facility]ATORYCLIA [id number] [place] [address] [place] CALCIUM IONIZED, PH CORRECTED 1.34 mmol/L High 1.08-1.30 [facility] Comment on above: Order Comment: Speci men Type: ARTERIAL BLOOD SPECIMENOrdering Facility: [facility] Address: [address] [place] [address] Performed By: #### A LLBG ####[facility]ORATORYCLIA [id number] [address] [place] Calcium.ionized (BldV) [Mass/Vol] 1.29 mmol/L Normal 1.08-1.30 [facility] Comment on above: Order Comment: Speci men Type: ARTERIAL BLOOD SPECIMENOrdering Facility: [facility] Address: [address] [place] [address] Performed By: #### A LLBG ####[facility]ATORYCLIA [id number] [address] [place] Carboxyhemoglobin (BldA) [Mass fraction] 1.3 % Normal 0.0-2.0 [facility] Comment on above: Order Comment: Speci men Type: ARTERIAL BLOOD SPECIMENOrdering Facility: [facility] Address: [address] [address] Result Comment: Carb oxyhemoglobin Reference Range for Smokers: 2.0-8.0% Performed By: #### A LLBG ####[facility]ATORYCLIA [id number] [address] [place] CO2 (Bld) [Partial pressure] 37 mm Hg Normal 36-46 [facility] Comment on above: Order Comment: Speci men Type: ARTERIAL BLOOD SPECIMENOrdering Facility: [facility] Address: [address] [address] Performed By: #### A LLBG ####[facility]ATORYCLIA [id number] [address] [place] CO2 [Moles/Vol] 24.6 mmol/L Normal 22-28 [facility] Comment on above: Order Comment: Speci men Type: ARTERIAL BLOOD SPECIMENOrdering Facility: [facility] Address: [address] [address] Performed By: #### A LLBG ####[facility]ATORYCLIA [id number] [address] [place] CO2 adjusted to patient's actual temperature (Bld) [Partial pressure] 38 mmHg Normal 36-46 [facility] Comment on above: Order Comment: Speci men Type: ARTERIAL BLOOD SPECIMENOrdering Facility: [facility] Address: [address] [address] Performed By: #### A LLBG ####[facility]ATORYCLIA [id number] [address] [place] FIO2 100 % Normal [facility] Comment on above: Order Comment: Speci men Type: ARTERIAL BLOOD SPECIMENOrdering Facility: [facility] Address: [address] [address] Performed By: #### A LLBG ####[facility]ATORYCLIA [id number] [address] [place] Glucose [Mass/Vol] 159 mg/dL High 60-105 [facility] Comment on above: Order Comment: Speci men Type: ARTERIAL BLOOD SPECIMENOrdering Facility: [facility] Address: [address] [place] [address] Performed By: #### A LLBG ####[facility]ATORYCLIA [id number] [address] [place] HCO3 (Bld) [Moles/Vol] 27 mmol/L High 22-26 [facility] Comment on above: Order Comment: Speci men Type: ARTERIAL BLOOD SPECIMENOrdering Facility: [facility] Address: [address] [place] [address] Performed By: #### A LLBG ####[facility]ATORYCLIA [id number] [address] Hematocrit (Bld) [Volume fraction] 31.0 % Low 39.0-51.0 [facility] Comment on above: Order Comment: Speci men Type: ARTERIAL BLOOD SPECIMENOrdering Facility: [facility] Address: [address] [place] [address] Performed By: #### A LLBG ####[facility]ATORYCLIA [id number] [address] [place] Hemoglobin (Bld) [Mass/Vol] 10.0 g/dL Low 13.0-17.0 [facility] Comment on above: Order Comment: Speci men Type: ARTERIAL BLOOD SPECIMENOrdering Facility: [facility] Address: [address] [place] [address] Performed By: #### A LLBG ####[facility]ATORYCLIA [id number] [address] [place] Methemoglobin (Bld) [Mass fraction] % Normal 0.0-1.5 [facility] Comment on above: Order Comment: Speci men Type: ARTERIAL BLOOD SPECIMENOrdering Facility: [facility] Address: [facility] [address] Performed By: #### A LLBG ####[facility]ATORYCLIA [id number] [address] [place] O2 THERAPY Ventilator Normal [facility] Comment on above: Order Comment: Speci men Type: ARTERIAL BLOOD SPECIMENOrdering Facility: [facility] Address: [address] [place] [address] Performed By: #### A LLBG ####[facility]ATORYCLIA [id number] [address] [place] Oxygen (Bld) [Partial pressure] 279 mm Hg High 85-95 [facility] Comment on above: Order Comment: Speci men Type: ARTERIAL BLOOD SPECIMENOrdering Facility: [facility] Address: [address] [place] [address] Performed By: #### A LLBG ####[facility]ATORYCLIA [id number] [address] Oxygen adjusted to patient's actual temperature (Bld) [Partial pressure] 281 mmHg High 85-95 [facility] Comment on above: Order Comment: Speci men Type: ARTERIAL BLOOD SPECIMENOrdering Facility: [facility] Address: [address] [place] [address] Performed By: #### A LLBG ####[facility]ATORYCLIA [id number] [address] [place] OXYGEN SATURATION, ARTERIAL 100 % High 95-98 [facility] Comment on above: Order Comment: Speci men Type: ARTERIAL BLOOD SPECIMENOrdering Facility: [facility] Address: [facility] [address] Performed By: #### A LLBG ####[facility]ATORYCLIA [id number] [address] [place] Oxyhemoglobin (BldA) [Mass fraction] 98 % Normal 95-98 [facility] Comment on above: Order Comment: Speci men Type: ARTERIAL BLOOD SPECIMENOrdering Facility: [facility] Address: [address] [place] [address] Performed By: #### A LLBG ####[facility]ATORYCLIA [id number] [address] pH (Bld) 7.47 [pH] High 7.35-7.45 [facility] Comment on above: Order Comment: Speci men Type: ARTERIAL BLOOD SPECIMENOrdering Facility: [facility] Address: [address] [place] [address] Performed By: #### A LLBG ####[facility]ATORYCLIA [id number] [address] pH adjusted to patient's actual temperature (Bld) 7.46 High 7.35-7.45 [facility] Comment on above: Order Comment: Speci men Type: ARTERIAL BLOOD SPECIMENOrdering Facility: [facility] Address: [address] [place] [address] Performed By: #### A LLBG ####[facility]ATORYCLIA [id number] [address] [place] Potassium [Moles/Vol] 3.6 mmol/L Normal 3.5-5.0 [facility] Comment on above: Order Comment: Speci men Type: ARTERIAL BLOOD SPECIMENOrdering Facility: [facility] Address: [address] [place] [address] Performed By: #### A LLBG ####[facility]ATORYCLIA [id number] [address] [place] Sodium [Moles/Vol] 162 mmol/L High 136-144 [facility] Comment on above: Order Comment: Speci men Type: ARTERIAL BLOOD SPECIMENOrdering Facility: [facility] Address: [address] [place] [address] Performed By: #### A LLBG ####[facility]ATORYCLIA [id number] [address] [place] Base excess Calc (Bld) [Moles/Vol] 4 mmol/L High 0-2 [facility] Comment on above: Order Comment: Speci men Type: ARTERIAL BLOOD SPECIMENOrdering Facility: [facility] Address: [address] [place] [address] Performed By: #### A LLBG ####[facility]ATORYCLIA [id number] [address] [place] Body temperature 100.58 [degF] Normal [facility] Comment on above: Order Comment: Speci men Type: ARTERIAL BLOOD SPECIMENOrdering Facility: [facility] Address: [address] [place] [address] Performed By: #### A LLBG ####[facility]ATORYCLIA [id number] [place] [address] [place] CALCIUM IONIZED, PH CORRECTED 1.34 mmol/L High 1.08-1.30 [facility] Comment on above: Order Comment: Speci men Type: ARTERIAL BLOOD SPECIMENOrdering Facility: [facility] Address: [address] [place] [address] Performed By: #### A LLBG ####[facility]ATORYCLIA [id number] [address] [place] Calcium.ionized (BldV) [Mass/Vol] 1.33 mmol/L High 1.08-1.30 [facility] Comment on above: Order Comment: Speci men Type: ARTERIAL BLOOD SPECIMENOrdering Facility: [facility] Address: [address] [place] [address] Performed By: #### A LLBG ####[facility]ATORYCLIA [id number] [place] [address] [place] Carboxyhemoglobin (BldA) [Mass fraction] 1.5 % Normal 0.0-2.0 [facility] Comment on above: Order Comment: Speci men Type: ARTERIAL BLOOD SPECIMENOrdering Facility: [facility] Address: [address] [place] [address] Result Comment: Carb oxyhemoglobin Reference Range for Smokers: 2.0-8.0% Performed By: #### A LLBG ####[facility]ATORYCLIA [id number] [address] CO2 (Bld) [Partial pressure] 46 mm Hg Normal 36-46 [facility] Comment on above: Order Comment: Speci men Type: ARTERIAL BLOOD SPECIMENOrdering Facility: [facility] Address: [address] [address] Performed By: #### A LLBG ####[facility]ATORYCLIA [id number] [address] CO2 [Moles/Vol] 26.4 mmol/L Normal 22-28 [facility] Comment on above: Order Comment: Speci men Type: ARTERIAL BLOOD SPECIMENOrdering Facility: [facility] Address: [address] [place] [address] Performed By: #### A LLBG ####[facility]ATORYCLIA [id number] [address] CO2 adjusted to patient's actual temperature (Bld) [Partial pressure] 48 mmHg High 36-46 [facility] Comment on above: Order Comment: Speci men Type: ARTERIAL BLOOD SPECIMENOrdering Facility: [facility] Address: [address] [place] [address] Performed By: #### A LLBG ####[facility]ATORYCLIA [id number] [address] FIO2 100 % Normal [facility] Comment on above: Order Comment: Speci men Type: ARTERIAL BLOOD SPECIMENOrdering Facility: [facility] Address: [address] [address] Performed By: #### A LLBG ####[facility]ORATORYCLIA [id number] [address] Glucose [Mass/Vol] 132 mg/dL High 60-105 [facility] Comment on above: Order Comment: Speci men Type: ARTERIAL BLOOD SPECIMENOrdering Facility: [facility] Address: [address] [place], [place] [address] Performed By: #### A LLBG ####[facility]ATORYCLIA [id number] [address] [place] HCO3 (Bld) [Moles/Vol] 29 mmol/L High 22-26 [facility] Comment on above: Order Comment: Speci men Type: ARTERIAL BLOOD SPECIMENOrdering Facility: [facility] Address: [address] [place] [address] Performed By: #### A LLBG ####[facility]ATORYCLIA [id number] [address] [place] Hematocrit (Bld) [Volume fraction] 32.3 % Low 39.0-51.0 [facility] Comment on above: Order Comment: Speci men Type: ARTERIAL BLOOD SPECIMENOrdering Facility: [facility] Address: [address] [place] [address] Performed By: #### A LLBG ####[facility]ORATORYCLIA [id number] [address] OF [facility] Hemoglobin (Bld) [Mass/Vol] 10.4 g/dL Low 13.0-17.0 [facility] Comment on above: Order Comment: Speci men Type: ARTERIAL BLOOD SPECIMENOrdering Facility: [facility] Address: [address] [place] [address] Performed By: #### A LLBG ####[facility]ATORYCLIA [id number] [address] [place] Methemoglobin (Bld) [Mass fraction] % Normal 0.0-1.5 [facility] Comment on above: Order Comment: Speci men Type: ARTERIAL BLOOD SPECIMENOrdering Facility: [facility] Address: [address] [place] [address] Performed By: #### A LLBG ####[facility]ATORYCLIA [id number] [address] [place] O2 THERAPY NR=Non-Rebreather Mask Normal [facility] Comment on above: Order Comment: Speci men Type: ARTERIAL BLOOD SPECIMENOrdering Facility: [facility] Address: [address] [place] [address] Performed By: #### A LLBG ####[facility]ATORYCLIA [id number] [address] Oxygen (Bld) [Partial pressure] 130 mm Hg High 85-95 [facility] Comment on above: Order Comment: Speci men Type: ARTERIAL BLOOD SPECIMENOrdering Facility: [facility] Address: [address] [place] [address] Performed By: #### A LLBG ####[facility]ATORYCLIA [id number] [address] Oxygen adjusted to patient's actual temperature (Bld) [Partial pressure] 136 mmHg High 85-95 [facility] Comment on above: Order Comment: Speci men Type: ARTERIAL BLOOD SPECIMENOrdering Facility: [facility] Address: [address] [place] [address] Performed By: #### A LLBG ####[facility]ATORYCLIA [id number] [address] [place] OXYGEN SATURATION, ARTERIAL 99 % High 95-98 [facility] Comment on above: Order Comment: Speci men Type: ARTERIAL BLOOD SPECIMENOrdering Facility: [facility] Address: [address] [place] [address] Performed By: #### A LLBG ####[facility]ATORYCLIA [id number] [address] [place] Oxyhemoglobin (BldA) [Mass fraction] 97 % Normal 95-98 [facility] Comment on above: Order Comment: Speci men Type: ARTERIAL BLOOD SPECIMENOrdering Facility: [facility] Address: [address] [place] [address] Performed By: #### A LLBG ####[facility]ATORYCLIA [id number] [address] [place] pH (Bld) 7.41 [pH] Normal 7.35-7.45 [facility] Comment on above: Order Comment: Speci men Type: ARTERIAL BLOOD SPECIMENOrdering Facility: [facility] Address: [address] [place] [address] Performed By: #### A LLBG ####[facility]ATORYCLIA [id number] [address] pH adjusted to patient's actual temperature (Bld) 7.40 Normal 7.35-7.45 [facility] Comment on above: Order Comment: Speci men Type: ARTERIAL BLOOD SPECIMENOrdering Facility: [facility] Address: [address] [place] [address] Performed By: #### A LLBG ####[facility]ATORYCLIA [id number] [address] Potassium [Moles/Vol] 3.8 mmol/L Normal 3.5-5.0 [facility] Comment on above: Order Comment: Speci men Type: ARTERIAL BLOOD SPECIMENOrdering Facility: [facility] Address: [address] [place] [address] Performed By: #### A LLBG ####[facility]ATORYCLIA [id number] [address] STATES [facility] Sodium [Moles/Vol] 166 mmol/L High 136-144 [facility] Comment on above: Order Comment: Speci men Type: ARTERIAL BLOOD SPECIMENOrdering Facility: [facility] Address: [address] [place] [address] Performed By: #### A LLBG ####[facility]ATORYCLIA [id number] [place] [address] [place] Bacteria Bld Culton 06-15-19 Bacteria identified Cx Nom (Bld) CULTURE, BLOOD: No growth 5 days Normal [facility] Comment on above: Performed By: #### 6 00-7 ####[facility]ATORYCLIA [id number] [place] [address] [place] Basic metabolic 2000 panelon 06-15-2021 Anion gap [Moles/Vol] 9 mmol/L Normal 9-18 [facility] Comment on above: Order Comment: Speci men Type: BLOOD SPECIMEN Performed By: #### 2 4321-2, 2776-05, ####[facility]ATORYCLIA [id number] [place], [place] [id number] [place] [address] [place] [facility] Calcium [Mass/Vol] 9.0 mg/dL Normal 8.5-10.2 [facility] Comment on above: Order Comment: Speci men Type: BLOOD SPECIMEN Performed By: #### 2 4321-2, 2776-05, ####[facility]ATORYCLIA [id number] [address] [place] Chloride [Moles/Vol] 125 mmol/L High 97-105 [facility] Comment on above: Order Comment: Speci men Type: BLOOD SPECIMEN Performed By: #### 2 4321-2, 2776-05, ####[facility]ORYCLIA [id number] [address] [place] CO2 [Moles/Vol] 29 mmol/L Normal 22-30 [facility] Comment on above: Order Comment: Speci men Type: BLOOD SPECIMEN Performed By: #### 2 4321-2, 2776-05, ####[facility]ATORYCLIA [id number] [address] [place] Creatinine [Mass/Vol] 0.81 mg/dL Normal 0.73-1.22 [facility] Comment on above: Order Comment: Speci men Type: BLOOD SPECIMEN Performed By: #### 2 4321-2, 2776-05, ####[facility]ATORYCLIA [id number] [place] [address] [place] GFR/1.73 sq M.predicted MDRD (S/P/Bld) [Vol rate/Area] mL/min/{1.73_m2} Normal [facility] Comment on above: Order Comment: Speci men Type: BLOOD SPECIMEN Result Comment: >60e GFR (Estimated GFR) Units of measure: mL/min/1.73 meters squaredeGFR is derived from the reexpressed MDRD Study equation using the following parameters: serum creatinine, age, gender and race. The creatinine assay has been calibrated to be traceable to IDDE. An eGFR <60 mL/min/1.73m2 for >3 months is consistent with chronic kidney disease. Refer to KDOQI guidelines for clinical interpretation. In patients with unstable renal function, e.g. those with acute kidney injury, the eGFR may not accurately reflect actual GFR. Performed By: #### 2 4321-2, 2776-05, ####[facility]ENTERCLIA [id number] [place] [address] [place] Glucose [Mass/Vol] 124 mg/dL High 74-99 [facility] Comment on above: Order Comment: Speci men Type: BLOOD SPECIMEN Result Comment: The [place] Diabetes Association (ADA) provides guidance for cutoff [...] Standards of Medical Care in Diabetes 2016, [place] [employer]. Diabetes Care. 2016.39(Suppl 1). Performed By: #### 2 4321-2, 2776-05, ####[facility]ATORYCLIA [id number] [place] [address] [place] Potassium [Moles/Vol] 3.8 mmol/L Normal 3.7-5.1 [facility] Comment on above: Order Comment: Speci men Type: BLOOD SPECIMEN Performed By: #### 2 4321-2, 2776-05, ####[facility]ATORYCLIA [id number] [place] [address] [place] Sodium [Moles/Vol] 163 mmol/L High 136-144 [facility] Comment on above: Order Comment: Speci men Type: BLOOD SPECIMEN Performed By: #### 2 4321-2, 2776-, ####[facility]ATORYCLIA [id number] [place], [place] [id number] [place] [address] [place] Urea nitrogen [Mass/Vol] 35 mg/dL High 9-24 [facility] Comment on above: Order Comment: Speci men Type: BLOOD SPECIMEN Performed By: #### 2 4321-2, 2776-, ####[facility]ATORYCLIA [id number] [address] [place] CBC panel Auto (Bld)on 06-15 Erythrocyte distribution width (RBC) [Ratio] 16.3 % High 11.5-15.0 [facility] Comment on above: Order Comment: Speci men Type: BLOOD SPECIMENOrdering Facility: [facility] Address: [address] [place] [address] Performed By: #### 5 8410-2 ####[facility]ATORYCLIA [id number] [address] [place] Hematocrit (Bld) [Volume fraction] 30.0 % Low 39.0-51.0 [facility] Comment on above: Order Comment: Speci men Type: BLOOD SPECIMENOrdering Facility: [facility] Address: [address] [place] [address] Performed By: #### 5 8410-2 ####[facility]ATORYCLIA [id number] [address] [place] Hemoglobin (Bld) [Mass/Vol] 8.9 g/dL Low 13.0-17.0 [facility] Comment on above: Order Comment: Speci men Type: BLOOD SPECIMENOrdering Facility: [facility] Address: [address] [place] [address] Performed By: #### 5 8410-2 ####[facility]ATORYCLIA [id number] [address] MCH (RBC) [Entitic mass] 28.7 pg Normal 26.0-34.0 [facility] Comment on above: Order Comment: Speci men Type: BLOOD SPECIMENOrdering Facility: [facility] Address: [address] [place] [address] Performed By: #### 5 8410-2 ####[facility]ATORYCLIA [id number] [address] MCHC (RBC) [Mass/Vol] 29.7 g/dL Low 30.5-36.0 [facility] Comment on above: Order Comment: Speci men Type: BLOOD SPECIMENOrdering Facility: [facility] Address: [address] [place] [address] Performed By: #### 5 8410-2 ####[facility]ATORYCLIA [id number] [address] MCV (RBC) [Entitic vol] 96.8 fL Normal 80.0-100.0 [facility] Comment on above: Order Comment: Speci men Type: BLOOD SPECIMENOrdering Facility: [facility] Address: [address] [place] [address] Performed By: #### 5 8410-2 ####[facility]ATORYCLIA [id number] [address] Nucleated RBC (Bld) [#/Vol] 10*3/uL Normal <0.01 [facility] Comment on above: Order Comment: Speci men Type: BLOOD SPECIMENOrdering Facility: [facility] Address: [address] [place] [address] Performed By: #### 5 8410-2 ####[facility]ATORYCLIA [id number] [address] Platelet mean volume (Bld) [Entitic vol] 12.3 fL Normal 9.0-12.7 [facility] Comment on above: Order Comment: Speci men Type: BLOOD SPECIMENOrdering Facility: [facility] Address: [address] [address] Performed By: #### 5 8410-2 ####[facility]ATORYCLIA [id number] [address] Platelets (Bld) [#/Vol] 226 10*3/uL Normal 150-400 [facility] Comment on above: Order Comment: Speci men Type: BLOOD SPECIMENOrdering Facility: [facility] [facility] Address: [address] [place] [address] Performed By: #### 5 8410-2 ####[facility] LABORATORYCLIA [id number] [address] RBC (Bld) [#/Vol] 3.10 10*6/uL Low 4.20-6.00 [facility] Comment on above: Order Comment: Speci men Type: BLOOD SPECIMENOrdering Facility: [facility] Address: [address] [place] [address] Performed By: #### 5 8410-2 ####[facility] LABORATORYCLIA [id number] [address] WBC (Bld) [#/Vol] 10.77 10*3/uL Normal 3.70-11.00 [facility] Comment on above: Order Comment: Speci men Type: BLOOD SPECIMENOrdering Facility: [facility] Address: [address] [place] [address] Performed By: #### 5 8410-2 ####[facility] LABORATORYCLIA [id number] [address] Erythrocyte distribution width (RBC) [Ratio] 16.2 % High 11.5-15.0 [facility] Comment on above: Order Comment: Speci men Type: BLOOD SPECIMENOrdering Facility: [facility] Address: [address] [place] [address] Performed By: #### 5 8410-2 ####[facility] LABORATORYCLIA [id number] [address] Hematocrit (Bld) [Volume fraction] 34.8 % Low 39.0-51.0 [facility] Comment on above: Order Comment: Speci men Type: BLOOD SPECIMENOrdering Facility: [facility] Address: [address] [place] [address] Performed By: #### 5 8410-2 ####[facility] LABORATORYCLIA [id number] [address] STATES OF [facility] Hemoglobin (Bld) [Mass/Vol] 10.0 g/dL Low 13.0-17.0 [facility] Comment on above: Order Comment: Speci men Type: BLOOD SPECIMENOrdering Facility: [facility] Address: [address] [place] [address] Performed By: #### 5 8410-2 ####[facility] LABORATORYCLIA [id number] [address] OF [facility] MCH (RBC) [Entitic mass] 27.5 pg Normal 26.0-34.0 [facility] Comment on above: Order Comment: Speci men Type: BLOOD SPECIMENOrdering Facility: [facility] Address: [address] [place] [address] Performed By: #### 5 8410-2 ####[facility]ORATORYCLIA [id number] [address] STATES OF [facility] MCHC (RBC) [Mass/Vol] 28.7 g/dL Low 30.5-36.0 [facility] Comment on above: Order Comment: Speci men Type: BLOOD SPECIMENOrdering Facility: [facility] Address: [address] [place] [address] Performed By: #### 5 8410-2 ####[facility]ATORYCLIA [id number] [address] MCV (RBC) [Entitic vol] 95.6 fL Normal 80.0-100.0 [facility] Comment on above: Order Comment: Speci men Type: BLOOD SPECIMENOrdering Facility: [facility] Address: [address] [place] [address] Performed By: #### 5 8410-2 ####[facility]ORATORYCLIA [id number] [address] Nucleated RBC (Bld) [#/Vol] 10*3/uL Normal <0.01 [facility] Comment on above: Order Comment: Speci men Type: BLOOD SPECIMENOrdering Facility: [facility] Address: [address] [place] [address] Performed By: #### 5 8410-2 ####[facility]ATORYCLIA [id number] [address] [place] Platelet mean volume (Bld) [Entitic vol] 11.9 fL Normal 9.0-12.7 [facility] Comment on above: Order Comment: Speci men Type: BLOOD SPECIMENOrdering Facility: [facility] Address: [address] [place] [address] Performed By: #### 5 8410-2 ####[facility]ATORYCLIA [id number] [address] [place] Platelets (Bld) [#/Vol] 246 10*3/uL Normal 150-400 [facility] Comment on above: Order Comment: Speci men Type: BLOOD SPECIMENOrdering Facility: [facility] Address: [address] [place] [address] Performed By: #### 5 8410-2 ####[facility]ATORYCLIA [id number] [address] [place] RBC (Bld) [#/Vol] 3.64 10*6/uL Low 4.20-6.00 [facility] Comment on above: Order Comment: Speci men Type: BLOOD SPECIMENOrdering Facility: [facility] Address: [address] [place] [address] Performed By: #### 5 8410-2 ####[facility] LABORATORYCLIA [id number] [address] [place] WBC (Bld) [#/Vol] 11.45 10*3/uL High 3.70-11.00 [facility] Comment on above: Order Comment: Speci men Type: BLOOD SPECIMENOrdering Facility: [facility] Address: [address] [place] [address] Performed By: #### 5 8410-2 ####[facility]ORATORYCLIA [id number] [address] Erythrocyte distribution width (RBC) [Ratio] 15.9 % High 11.5-15.0 [facility] Comment on above: Order Comment: Speci men Type: BLOOD SPECIMEN Performed By: #### 5 8410-2 ####[facility]ATORYCLIA [id number] [address] Hematocrit (Bld) [Volume fraction] 35.8 % Low 39.0-51.0 [facility] Comment on above: Order Comment: Speci men Type: BLOOD SPECIMEN Performed By: #### 5 8410-2 ####[facility]ATORYCLIA [id number] [address] Hemoglobin (Bld) [Mass/Vol] 10.4 g/dL Low 13.0-17.0 [facility] Comment on above: Order Comment: Speci men Type: BLOOD SPECIMEN Performed By: #### 5 8410-2 ####[facility]ATORYCLIA [id number] [address] MCH (RBC) [Entitic mass] 28.0 pg Normal 26.0-34.0 [facility] Comment on above: Order Comment: Speci men Type: BLOOD SPECIMEN Performed By: #### 5 8410-2 ####[facility]ATORYCLIA [id number] [address] OF [facility] MCHC (RBC) [Mass/Vol] 29.1 g/dL Low 30.5-36.0 [facility] Comment on above: Order Comment: Speci men Type: BLOOD SPECIMEN Performed By: #### 5 8410-2 ####[facility]ATORYCLIA [id number] [address] MCV (RBC) [Entitic vol] 96.2 fL Normal 80.0-100.0 [facility] Comment on above: Order Comment: Speci men Type: BLOOD SPECIMEN Performed By: #### 5 8410-2 ####[facility]ATORYCLIA [id number] [address] Nucleated RBC (Bld) [#/Vol] 10*3/uL Normal <0.01 [facility] Comment on above: Order Comment: Speci men Type: BLOOD SPECIMEN Performed By: #### 5 8410-2 ####[facility]ATORYCLIA [id number] [address] Platelet mean volume (Bld) [Entitic vol] 11.6 fL Normal 9.0-12.7 [facility] Comment on above: Order Comment: Speci men Type: BLOOD SPECIMEN Performed By: #### 5 8410-2 ####[facility]ATORYCLIA [id number] [address] Platelets (Bld) [#/Vol] 265 10*3/uL Normal 150-400 [facility] Comment on above: Order Comment: Speci men Type: BLOOD SPECIMEN Performed By: #### 5 8410-2 ####[facility]ATORYCLIA [id number] [address] RBC (Bld) [#/Vol] 3.72 10*6/uL Low 4.20-6.00 [facility] Comment on above: Order Comment: Speci men Type: BLOOD SPECIMEN Performed By: #### 5 8410-2 ####[facility]ATORYCLIA [id number] [address] WBC (Bld) [#/Vol] 12.24 10*3/uL High 3.70-11.00 [facility] Comment on above: Order Comment: Speci men Type: BLOOD SPECIMEN Performed By: #### 5 8410-2 ####[facility]ORATORYCLIA [id number] [address] [place] CONSULTon 06-15-2021 CONSULT Normal [facility] CONSULT Normal [facility] CONSULT Normal [facility] CT BRAIN WO IVCONon 06-15-19 CT BRAIN WO IVCON Normal [facility] CT CHEST W IVCON PEon 2021 CT CHEST W IVCON PE Invalid Interpretation Code [facility] Chloride Unsp time (U) [Mole s/Vol]on 06-15-2021 Chloride (U) [Moles/Vol] 28 mmol/L Normal 16-250 [facility] Comment on above: Order Comment: Speci men Type: URINE SPECIMENOrdering Facility: [facility] Address: [address] [place] [address] Performed By: #### U TPR, 00317-3, 04562-7, 54198-8 ####[facility]ORATORYCLIA [id number] [address] Comprehensive metabolic 2000 panelon 06-15-2021 Albumin [Mass/Vol] 2.8 g/dL Low 3.9-4.9 [facility] Comment on above: Order Comment: Speci men Type: BLOOD SPECIMENOrdering Facility: [facility] Address: [address] [place] [address] Performed By: #### 2 4323-8 ####[facility]ORATORYCLIA [id number] [address] [place] ALP [Catalytic activity/Vol] 74 U/L Normal 38-113 [facility] Comment on above: Order Comment: Speci men Type: BLOOD SPECIMENOrdering Facility: [facility] Address: [address] [place] [address] Performed By: #### 2 4323-8 ####[facility]ORATORYCLIA [id number] [address] [place] ALT With P-5'-P [Catalytic activity/Vol] 50 U/L Normal 10-54 [facility] Comment on above: Order Comment: Speci men Type: BLOOD SPECIMENOrdering Facility: [facility] Address: [address] [place] [address] Performed By: #### 2 4323-8 ####[facility] LABORATORYCLIA [id number] [place] [address] [place] Anion gap [Moles/Vol] 12 mmol/L Normal 9-18 [facility] Comment on above: Order Comment: Speci men Type: BLOOD SPECIMENOrdering Facility: [facility] Address: [address] [place] [address] Performed By: #### 2 4323-8 ####[facility] LABORATORYCLIA [id number] [address] [place] AST With P-5'-P [Catalytic activity/Vol] 36 U/L Normal 14-40 [facility] Comment on above: Order Comment: Speci men Type: BLOOD SPECIMENOrdering Facility: [facility] Address: [address] [place] [address] Performed By: #### 2 4323-8 ####[facility]ORATORYCLIA [id number] [place] [address] [place] Bilirubin [Mass/Vol] 0.5 mg/dL Normal 0.2-1.3 [facility] Comment on above: Order Comment: Speci men Type: BLOOD SPECIMENOrdering Facility: [facility] Address: [address] [place] [address] Performed By: #### 2 4323-8 ####[facility] LABORATORYCLIA [id number] [address] [place] Calcium [Mass/Vol] 8.8 mg/dL Normal 8.5-10.2 [facility] Comment on above: Order Comment: Speci men Type: BLOOD SPECIMENOrdering Facility: [facility] Address: [address] [place] [address] Performed By: #### 2 4323-8 ####[facility] LABORATORYCLIA [id number] [address] [place] Chloride [Moles/Vol] 126 mmol/L High 97-105 [facility] Comment on above: Order Comment: Speccara feldman Type: BLOOD SPECIMENOrdering Facility: [facility] Address: [address] [place] [address] Performed By: #### 2 4323-8 ####[facility] LABORATORYCLIA [id number] [address] [place] CO2 [Moles/Vol] 24 mmol/L Normal 22-30 [facility] Comment on above: Order Comment: Johni francia Type: BLOOD SPECIMENOrdering Facility: [facility] Address: [address] [place] [address] Performed By: #### 2 4323-8 ####[facility] LABORATORYCLIA [id number] [address] [place] Creatinine [Mass/Vol] 0.84 mg/dL Normal 0.73-1.22 [facility] Comment on above: Order Comment: Johncara feldman Type: BLOOD SPECIMENOrdering Facility: [facility] Address: [address] [place] [address] Performed By: #### 2 4323-8 ####[facility] LABORATORYCLIA [id number] [address] [place] GFR/1.73 sq M.predicted MDRD (S/P/Bld) [Vol rate/Area] mL/min/{1.73_m2} Normal [facility] Comment on above: Order Comment: Johncara feldman Type: BLOOD SPECIMENOrdering Facility: [facility] Address: [address] [place] [address] Result Comment: >60e GFR (Estimated GFR) Units [...] 2 4323-8 ####[facility]ORATORYCLIA [id number] [place] [address] [place] Glucose [Mass/Vol] 142 mg/dL High 74-99 [facility] Comment on above: Order Comment: Shira feldman Type: BLOOD SPECIMENOrdering Facility: [facility] Address: [address] [place] [address] Result Comment: The [employer] (ADA) provides guidance for cutoff [...] Standards of Medical Care in Diabetes 2016, [place] [employer]. Diabetes Care. 2016.39(Suppl 1). Performed By: #### 2 4323-8 ####[facility]ORATORYCLIA [id number] [place] [address] [place] Potassium [Moles/Vol] 3.8 mmol/L Normal 3.7-5.1 [facility] Comment on above: Order Comment: Shira feldman Type: BLOOD SPECIMENOrdering Facility: [facility] Address: [address] [address] Performed By: #### 2 4323-8 ####[facility]ORATORYCLIA [id number] [place] [address] [place] Protein [Mass/Vol] 6.1 g/dL Low 6.3-8.0 [facility] Comment on above: Order Comment: Shira feldman Type: BLOOD SPECIMENOrdering Facility: [facility] Address: [address] [address] Performed By: #### 2 4323-8 ####[facility]ORATORYCLIA [id number] [place] [address] [place] Sodium [Moles/Vol] 162 mmol/L High 136-144 [facility] Comment on above: Order Comment: Speci men Type: BLOOD SPECIMENOrdering Facility: [facility] Address: [address] [place] [address] Performed By: #### 2 4323-8 ####[facility]ORATORYCLIA [id number] [place] [address] [place] Urea nitrogen [Mass/Vol] 33 mg/dL High 9-24 [facility] Comment on above: Order Comment: Speci men Type: BLOOD SPECIMENOrdering Facility: [facility] Address: [address] [place] [address] Performed By: #### 2 4323-8 ####[facility]ORATORYCLIA [id number] [address] [place] Creatinine Unsp time (U) [Ma ss/Vol]on 06-15-2021 Creatinine (U) [Mass/Vol] 87.0 mg/dL Normal 46.8-314.5 [facility] Comment on above: Order Comment: Speci men Type: URINE SPECIMENOrdering Facility: [facility] Address: [address] [place] [address] Performed By: #### U TPR, 57933-3, 95552-9, 31570-1 ####[facility] LABORATORYCLIA [id number] [address] [place] HIGH SENSITIVITY TROPONIN To n 06-15-2021 HIGH SENSITIVITY TAMIKO 23 ng/L High <12 [facility] Comment on above: Order Comment: Speci men Type: BLOOD SPECIMENOrdering Facility: [facility] Address: [address] [place] [address] Result Comment: When assessing risk for acute [...] day MACE. Performed By: #### P JULIANNE, 21479-9, HSTNT ####[facility] LABORATORYCLIA [id number] [address] STATES OF [facility] Lactate (Bld) [Moles/Vol]on 06-15-2021 Lactate [Moles/Vol] 0.8 mmol/L Normal 0.5-2.2 [facility] Comment on above: Order Comment: Speci men Type: BLOOD SPECIMENOrdering Facility: [facility] Address: [address] [place] [address] Performed By: #### 3 2693-4 ####[facility]ENTERCLIA [id number] [address] [place] Magnesium [facility]-ncon 06-15 Magnesium [Mass/Vol] 3.0 mg/dL High 1.7-2.3 [facility] Comment on above: Order Comment: Speci men Type: BLOOD SPECIMEN Performed By: #### 2 4321-2, 2777-1, 91244-6 ####[facility]ATORYCLIA [id number] [address] NT[facility]BNP [facility] Natriuretic peptide.B prohormone N-Terminal [Mass/Vol] 265 pg/mL High <125 [facility] Comment on above: Order Comment: Speci men Type: BLOOD SPECIMENOrdering Facility: [facility] Address: [address] [address] Performed By: #### P JULIANNE, 44534-6, HSTNT ####[facility]ATORYCLIA [id number] [address] [place] Osmolality Uron 06-15-2021 Osmolality (U) [Osmolality] 606 mosm/kg Normal 50-1,200 [facility] Comment on above: Order Comment: Speci men Type: URINE SPECIMENOrdering Facility: [facility] Address: [address] [place] [address] Performed By: #### 2 695-5 ####[facility]ATORYCLIA [id number] [address] PROCALCITONIN (LAB)on 2021 Procalcitonin [Mass/Vol] 0.21 ng/mL High <0.09 [facility] Comment on above: Order Comment: Speci men Type: BLOOD SPECIMENOrdering Facility: [facility] Address: [address] [place] [address] Result Comment: For a guided interpretation of test results, please visit the Change in Procalcitonin Calculator, [email or web address]. Performed By: #### P JULIANNE, 2951-2 ####[facility]ORATORYCLIA [id number] [address] Procalcitonin [Mass/Vol] 0.17 ng/mL High <0.09 [facility] Comment on above: Order Comment: Speci men Type: BLOOD SPECIMENOrdering Facility: [facility] Address: [address] [place] [address] Result Comment: For a guided interpretation of test results, please visit the Change in Procalcitonin Calculator, [email or web address]. Performed By: #### P JULIANNE, 33957-1, HSTNT ####[facility] LABORATORYCLIA [id number] [address] PROTEIN RANDOM URon 06-15-19 22 Protein (U) [Mass/Vol] 175 mg/dL High 0-20 [facility] Comment on above: Order Comment: Speci men Type: URINE SPECIMENOrdering Facility: [facility] Address: [address] [place] [address] Performed By: #### U TPR, 56534-0, 18770-3, 15986-7 ####[facility] LABORATORYCLIA [id number] [address] PT panel Coag (PPP)on 2021 INR Coag (PPP) [Relative time] 1.1 {INR} Normal <1.4 [facility] Comment on above: Order Comment: Shira feldman Type: BLOOD SPECIMENOrdering Facility: [facility] Address: [address] [place] [address] Result Comment: Yris min K Antagonist (VKA) Therapeutic Range: INR 2 to 3 (Target INR of 2.5)Note: For patients treated with VKA drugs, such as warfarin, the [employer] 2012 Guideline recommends [...] al. Chest 2012, 141:7S-47SNishimura RA, et al. [facility] 2017, 70: 252-289 Performed By: #### 3 4528-0, 54463-8 ####[facility]ORATORYCLIA [id number] [place] [address] [place] PT Coag (PPP) [Time] 11.4 s Normal <13.1 [facility] Comment on above: Order Comment: Shira feldman Type: BLOOD SPECIMENOrdering Facility: [facility] Address: [address] [place], [place] [address] Performed By: #### 3 4528-0, 41578-9 ####[facility]ORATORYCLIA [id number] [place] [address] [place] Phosphate SerPl-mCncon 06-15 Phosphate [Mass/Vol] 2.6 mg/dL Low 2.7-4.8 [facility] Comment on above: Order Comment: Shira feldman Type: BLOOD SPECIMEN Performed By: #### 2 4321-2, 2777-1, 35854-7 ####[facility]ORATORYCLIA [id number] [place] [address] [place] Sodium ?Tm Ur-sCncon 022 Sodium Unsp time (U) [Moles/Vol] 34 mmol/L Normal 14-216 [facility] Comment on above: Order Comment: Speci men Type: URINE SPECIMENOrdering Facility: [facility] Address: [address] [place] [address] Performed By: #### U TPR, 82611-2, 71226-9, 78225-6 ####[facility]ORATORYCLIA [id number] [address] [place] Sodium SerPl-sCncon 06-15-19 22 Sodium [Moles/Vol] 159 mmol/L High 136-144 [facility] Comment on above: Order Comment: Speci men Type: BLOOD SPECIMENOrdering Facility: [facility] Address: [address] [place] [address] Performed By: #### P JULIANNE, 2951-2 ####[facility] LABORATORYCLIA [id number] [address] [place] THERAPY NTon 06-15-2021 THERAPY NT Normal [facility] Urinalysis complete panel (U )on 06-15-2021 Bacteria LM.HPF (Urine sed) [#/Area] None Seen Normal None Seen [facility] Comment on above: Order Comment: Speci men Type: URINE SPECIMENOrdering Facility: [facility] Address: [address] [place] [address] Performed By: #### 2 4356-8 ####[facility] LABORATORYCLIA [id number] [address] [place] Bilirubin Ql (U) Negative Normal Negative [facility] Comment on above: Order Comment: Speci men Type: URINE SPECIMENOrdering Facility: [facility] Address: [address] [place] [address] Performed By: #### 2 4356-8 ####[facility] LABORATORYCLIA [id number] [address] Clarity (Unsp spec) Cloudy Abnormal Clear [facility] Comment on above: Order Comment: Speci men Type: URINE SPECIMENOrdering Facility: [facility] Address: [address] [place] [address] Performed By: #### 2 4356-8 ####[facility] LABORATORYCLIA [id number] [address] Color (U) Yellow Normal Yellow [facility] Comment on above: Order Comment: Speci men Type: URINE SPECIMENOrdering Facility: [facility] Address: [address] [place] [address] Performed By: #### 2 4356-8 ####[facility] LABORATORYCLIA [id number] [address] Epithelial cells LM.HPF (Urine sed) [#/Area] 7.1 /[HPF] Normal [facility] Comment on above: Order Comment: Speci men Type: URINE SPECIMENOrdering Facility: [facility] Address: [address] [place] [address] Performed By: #### 2 4356-8 ####[facility] LABORATORYCLIA [id number] [address] Glucose Test strip (U) [Mass/Vol] Negative Normal Negative [facility] Comment on above: Order Comment: Speci men Type: URINE SPECIMENOrdering Facility: [facility] Address: [address] [place] [address] Performed By: #### 2 4356-8 ####[facility] [facility]ATORYCLIA [id number] [address] Granular casts (Urine sed) [#/Area] /[LPF] Abnormal 0 /LPF [facility] Comment on above: Order Comment: Speci men Type: URINE SPECIMENOrdering Facility: [facility] Address: [address] [place] [address] Performed By: #### 2 4356-8 ####[facility]ATORYCLIA [id number] [address] [place] Hemoglobin Ql (U) Moderate Abnormal Negative [facility] Comment on above: Order Comment: Speci men Type: URINE SPECIMENOrdering Facility: [facility] Address: [address] [place] [address] Performed By: #### 2 4356-8 ####[facility]ORATORYCLIA [id number] [place] [address] [place] Hyaline casts (Urine sed) [#/Area] /[LPF] Abnormal 0 /LPF [facility] Comment on above: Order Comment: Speci men Type: URINE SPECIMENOrdering Facility: [facility] Address: [address] [place] [address] Performed By: #### 2 4356-8 ####[facility]ATORYCLIA [id number] [address] STATES [facility] Ketones Ql (U) Negative Normal Negative [facility] Comment on above: Order Comment: Speci men Type: URINE SPECIMENOrdering Facility: [facility] Address: [address] [place] [address] Performed By: #### 2 4356-8 ####[facility]ATORYCLIA [id number] [address] [place] Leukocyte esterase Test strip Ql (U) Negative Normal Negative [facility] Comment on above: Order Comment: Speci men Type: URINE SPECIMENOrdering Facility: [facility] Address: [address] [place] [address] Performed By: #### 2 4356-8 ####[facility]ATORYCLIA [id number] [place] [address] [place] Nitrite Ql (U) Negative Normal Negative [facility] Comment on above: Order Comment: Speci men Type: URINE SPECIMENOrdering Facility: [facility] Address: [facility] [place] [address] Performed By: #### 2 4356-8 ####[facility]ATORYCLIA [id number] [address] pH (U) 6.0 [pH] Normal 5.0-8.0 [facility] Comment on above: Order Comment: Speci men Type: URINE SPECIMENOrdering Facility: [facility] Address: [address] [place] [address] Performed By: #### 2 4356-8 ####[facility]ATORYCLIA [id number] [address] Protein (U) [Mass/Vol] 100 mg/dL Abnormal Negative [facility] Comment on above: Order Comment: Speci men Type: URINE SPECIMENOrdering Facility: [facility] Address: [address] [place] [address] Performed By: #### 2 4356-8 ####[facility]ENTERCLIA [id number] [address] STATES [facility] RBC LM.HPF (Urine sed) [#/Area] 0-3 /HPF Normal 0-3 /HPF [facility] Comment on above: Order Comment: Speci men Type: URINE SPECIMENOrdering Facility: [facility] Address: [address] [place] [address] Performed By: #### 2 4356-8 ####[facility]ATORYCLIA [id number] [address] Specific gravity (U) [Rel density] 1.024 Normal 1.005-1.030 [facility] Comment on above: Order Comment: Speci men Type: URINE SPECIMENOrdering Facility: [facility] Address: [address] [place] [address] Performed By: #### 2 4356-8 ####[facility]ORATORYCLIA [id number] [address] Urobilinogen Ql (U) 0.2 EU/dL Normal 0.2-1.0 EU/dL [facility] Comment on above: Order Comment: Speci men Type: URINE SPECIMENOrdering Facility: [facility] Address: [address] [place] [address], [place] [address] Performed By: #### 2 4356-8 ####[facility]ORATORYCLIA [id number] [address] STATES [facility] WBC LM.HPF (Urine sed) [#/Area] 0-5 /HPF Normal 0-5 /HPF [facility] Comment on above: Order Comment: Speci men Type: URINE SPECIMENOrdering Facility: [facility] Address: [address] [place], [place] [address] [address] Performed By: #### 2 4356-8 ####[facility]ORATORYCLIA [id number] [address] OF [facility] XR CHEST 1V FRONTALon 2021 XR CHEST 1V FRONTAL Normal [facility] XR CHEST 1V FRONTAL PORTon 0 06-15-2021 XR CHEST 1V FRONTAL PORT Normal [facility] XR CHEST 1V FRONTAL PORT Normal [facility] aPTT PPPon 06-15-2021 aPTT Coag (PPP) [Time] 30.9 s Normal 23.0-32.4 [facility] Comment on above: Order Comment: Speci men Type: BLOOD SPECIMENOrdering Facility: [facility] Address: [facility] [place] [facility] [place] [address] Performed By: #### 3 4528-0, 16057-5 ####[facility]ORATORYCLIA [id number] [address] STATES OF [facility] Basic metabolic 2000 panelon 06-14-2021 Anion gap [Moles/Vol] 8 mmol/L Low 9-18 [facility] Comment on above: Order Comment: Speci men Type: BLOOD SPECIMEN Performed By: #### 2 4321-2, 2777-1, 06609-4 ####[facility]ATORYCLIA [id number] [address] STATES OF [facility] Calcium [Mass/Vol] 8.9 mg/dL Normal 8.5-10.2 [facility] Comment on above: Order Comment: Speci men Type: BLOOD SPECIMEN Performed By: #### 2 4321-2, 2776-05, ####[facility]ORATORYCLIA [id number] [place], [place] [address] [place] [address] STATES OF [facility] Chloride [Moles/Vol] 121 mmol/L High 97-105 [facility] Comment on above: Order Comment: Speci men Type: BLOOD SPECIMEN Performed By: #### 2 4321-2, 2776-05, ####[facility]ATORYCLIA [id number] [address] [place] CO2 [Moles/Vol] 30 mmol/L Normal 22-30 [facility] Comment on above: Order Comment: Speci men Type: BLOOD SPECIMEN Performed By: #### 2 4321-2, 2776-05, ####[facility]ATORYCLIA [id number] [address] STATES OF [facility] Creatinine [Mass/Vol] 0.78 mg/dL Normal 0.73-1.22 [facility] Comment on above: Order Comment: Speci men Type: BLOOD SPECIMEN Performed By: #### 2 4321-2, 2776-05, ####[facility]ATORYCLIA [id number] [address] [place] GFR/1.73 sq M.predicted MDRD (S/P/Bld) [Vol rate/Area] mL/min/{1.73_m2} Normal [facility] Comment on [...] 4321-2, 2776-05, ####[facility]ORATORYCLIA [id number] [place] [address] [place] Glucose [Mass/Vol] 132 mg/dL High 74-99 [facility] Comment on above: Order Comment: Speci men Type: BLOOD SPECIMEN Result Comment: The [place] Diabetes Association (ADA) provides guidance for cutoff [...] Standards of Medical Care in Diabetes 2016, [place] [employer]. Diabetes Care. 2016.39(Suppl 1). Performed By: #### 2 4321-2, 2776-05, ####[facility]ATORYCLIA [id number] [place] [address] [place] Potassium [Moles/Vol] 3.7 mmol/L Normal 3.7-5.1 [facility] Comment on above: Order Comment: Speci men Type: BLOOD SPECIMEN Performed By: #### 2 1-2, 2776-05, ####[facility]ATORYCLIA [id number] [place] [address] [place] Sodium [Moles/Vol] 159 mmol/L High 136-144 [facility] Comment on above: Order Comment: Speci men Type: BLOOD SPECIMEN Performed By: #### 2 4321-2, 2776-05, ####[facility]ATORYCLIA [id number] [place] [address] [place] Urea nitrogen [Mass/Vol] 35 mg/dL High 9-24 [facility] Comment on above: Order Comment: Speci men Type: BLOOD SPECIMEN Performed By: #### 2 1-2, 2776-05, 81752-9 ####[facility]ORATORYCLIA [id number] [address] CASE MANAGEMon 06-14-2021 CASE MANAGEM Normal [facility] CBC panel Auto (Bld)on 06-14 Erythrocyte distribution width (RBC) [Ratio] 16.2 % High 11.5-15.0 [facility] Comment on above: Order Comment: Speci men Type: BLOOD SPECIMEN Performed By: #### 5 8410-2 ####[facility]ORATORYCLIA [id number] [address] Hematocrit (Bld) [Volume fraction] 35.2 % Low 39.0-51.0 [facility] Comment on above: Order Comment: Speci men Type: BLOOD SPECIMEN Performed By: #### 5 8410-2 ####[facility]ATORYCLIA [id number] [address] Hemoglobin (Bld) [Mass/Vol] 10.1 g/dL Low 13.0-17.0 [facility] Comment on above: Order Comment: Speci men Type: BLOOD SPECIMEN Performed By: #### 5 8410-2 ####[facility]ATORYCLIA [id number] [address] MCH (RBC) [Entitic mass] 27.2 pg Normal 26.0-34.0 [facility] Comment on above: Order Comment: Speci men Type: BLOOD SPECIMEN Performed By: #### 5 8410-2 ####[facility]ATORYCLIA [id number] [address] MCHC (RBC) [Mass/Vol] 28.7 g/dL Low 30.5-36.0 [facility] Comment on above: Order Comment: Speci men Type: BLOOD SPECIMEN Performed By: #### 5 8410-2 ####[facility]ATORYCLIA [id number] [address] MCV (RBC) [Entitic vol] 94.6 fL Normal 80.0-100.0 [facility] Comment on above: Order Comment: Speci men Type: BLOOD SPECIMEN Performed By: #### 5 8410-2 ####[facility]ATORYCLIA [id number] [address] Nucleated RBC (Bld) [#/Vol] 10*3/uL Normal <0.01 [facility] Comment on above: Order Comment: Speci men Type: BLOOD SPECIMEN Performed By: #### 5 8410-2 ####[facility]ATORYCLIA [id number] [address] Platelet mean volume (Bld) [Entitic vol] 11.0 fL Normal 9.0-12.7 [facility] Comment on above: Order Comment: Speci men Type: BLOOD SPECIMEN Performed By: #### 5 8410-2 ####[facility]ORYCLIA [id number] [address] Platelets (Bld) [#/Vol] 287 10*3/uL Normal 150-400 [facility] Comment on above: Order Comment: Speci men Type: BLOOD SPECIMEN Performed By: #### 5 8410-2 ####[facility]ORYCLIA [id number] [address] RBC (Bld) [#/Vol] 3.72 10*6/uL Low 4.20-6.00 [facility] Comment on above: Order Comment: Speci men Type: BLOOD SPECIMEN Performed By: #### 5 8410-2 ####[facility]ORYCLIA [id number] [address] WBC (Bld) [#/Vol] 12.23 10*3/uL High 3.70-11.00 [facility] Comment on above: Order Comment: Speci men Type: BLOOD SPECIMEN Performed By: #### 5 8410-2 ####[facility]ORYCLIA [id number] [address] Comprehensive metabolic 2000 panelon 06-14-2021 Albumin [Mass/Vol] 3.1 g/dL Low 3.9-4.9 [facility] Comment on above: Order Comment: Speci men Type: BLOOD SPECIMEN Performed By: #### 2 4323-8, HSTNT, 2776-05, ####[facility]ATORYCLIA [id number] [place], [place] [address] [place] [address] ALP [Catalytic activity/Vol] 72 U/L Normal 38-113 [facility] Comment on above: Order Comment: Speci men Type: BLOOD SPECIMEN Performed By: #### 2 4323-8, HSTNT, 2776-05, ####[facility]ORYCLIA [id number] [address] ALT With P-5'-P [Catalytic activity/Vol] 57 U/L High 10-54 [facility] Comment on above: Order Comment: Speci men Type: BLOOD SPECIMEN Performed By: #### 2 4323-8, HSTNT, 2776-05, ####[facility]ORYCLIA [id number] [address] Anion gap [Moles/Vol] 9 mmol/L Normal 9-18 [facility] Comment on above: Order Comment: Speci men Type: BLOOD SPECIMEN Performed By: #### 2 4323-8, HSTNT, 2776-05, ####[facility]ORYCLIA [id number] [address] AST With P-5'-P [Catalytic activity/Vol] 33 U/L Normal 14-40 [facility] Comment on above: Order Comment: Speci men Type: BLOOD SPECIMEN Performed By: #### 2 4323-8, HSTNT, 2776-05, ####[facility]ORYCLIA [id number] [address] OF [facility] Bilirubin [Mass/Vol] 0.5 mg/dL Normal 0.2-1.3 [facility] Comment on above: Order Comment: Speci men Type: BLOOD SPECIMEN Performed By: #### 2 4323-8, HSTNT, 2776-05, ####[facility]ORYCLIA [id number] [address] STATES OF [facility] Calcium [Mass/Vol] 8.8 mg/dL Normal 8.5-10.2 [facility] Comment on above: Order Comment: Speci men Type: BLOOD SPECIMEN Performed By: #### 2 4323-8, HSTNT, 2776-05, ####[facility]ORYCLIA [id number] [address] STATES OF [facility] Chloride [Moles/Vol] 124 mmol/L High 97-105 [facility] Comment on above: Order Comment: Speci men Type: BLOOD SPECIMEN Performed By: #### 2 4323-8, HSTNT, 2776-05, ####[facility]ORYCLIA [id number] [address] STATES OF [facility] CO2 [Moles/Vol] 29 mmol/L Normal 22-30 [facility] Comment on above: Order Comment: Speci men Type: BLOOD SPECIMEN Performed By: #### 2 4323-8, HSTNT, 2776-05, ####[facility]ORYCLIA [id number] [address] [place] Creatinine [Mass/Vol] 0.73 mg/dL Normal 0.73-1.22 [facility] Comment on above: Order Comment: Speci men Type: BLOOD SPECIMEN Performed By: #### 2 4323-8, HSTNT, 2776-05, ####[facility]ORYCLIA [id number] [address] [place] GFR/1.73 sq M.predicted MDRD (S/P/Bld) [Vol rate/Area] mL/min/{1.73_m2} Normal [facility] Comment on [...] HSTNT, 2776-05, ####[facility]ATORYCLIA [id number] [place] [address] [place] Glucose [Mass/Vol] 137 mg/dL High 74-99 [facility] Comment on above: Order Comment: Speci men Type: BLOOD SPECIMEN Result Comment: The [place] Diabetes Association (ADA) provides guidance for cutoff [...] Standards of Medical Care in Diabetes 2016, [place] Diabetes Association. Diabetes Care. 2016.39(Suppl 1). Performed By: #### 2 4323-8, HSTNT, 2776-05, ####[facility]ORYCLIA [id number] [place] [address] [place] Potassium [Moles/Vol] 3.6 mmol/L Low 3.7-5.1 [facility] Comment on above: Order Comment: Speci men Type: BLOOD SPECIMEN Performed By: #### 2 4323-8, HSTNT, 2776-05, ####[facility]ORYCLIA [id number] [address] Protein [Mass/Vol] 5.9 g/dL Low 6.3-8.0 [facility] Comment on above: Order Comment: Speci men Type: BLOOD SPECIMEN Performed By: #### 2 4323-8, HSTNT, 2777-1, 36105-7 ####[facility]ORYCLIA [id number] [address] Sodium [Moles/Vol] 162 mmol/L High 136-144 [facility] Comment on above: Order Comment: Speci men Type: BLOOD SPECIMEN Performed By: #### 2 4323-8, HSTNT, 2776-, ####[facility]ORYCLIA [id number] [address] Urea nitrogen [Mass/Vol] 33 mg/dL High 9-24 [facility] Comment on above: Order Comment: Speci men Type: BLOOD SPECIMEN Performed By: #### 2 4323-8, HSTNT, 2776-05, ####[facility]ORYCLIA [id number] [address] HIGH SENSITIVITY TROPONIN To n 06-14-2021 [...] H STNT ####[facility]ATORYCLIA [id number] [address] HIGH SENSITIVITY TAMIKO 22 ng/L High [...] Performed By: #### 2 4323-8, HSTNT, 2776-05, ####[facility]ORYCLIA [id number] [address] Magnesium SerPl-mCncon 06-14 Magnesium [Mass/Vol] 2.9 mg/dL High 1.7-2.3 [facility] Comment on above: Order Comment: Speci men Type: BLOOD SPECIMEN Performed By: #### 2 4323-8, HSTNT, 2776-05, ####[facility]ORYCLIA [id number] [address] Magnesium [Mass/Vol] 3.0 mg/dL High 1.7-2.3 [facility] Comment on above: Order Comment: Speci men Type: BLOOD SPECIMEN Performed By: #### 2 4321-2, 2776-05, ####[facility]ORYCLIA [id number] [address] NURSING PROGon 06-14-2021 NURSING PROG Normal [facility] NUTRITIONon 06-14-2021 NUTRITION Normal [facility] Phosphate SerPl-mCncon 06-14 Phosphate [Mass/Vol] 2.4 mg/dL Low 2.7-4.8 [facility] Comment on above: Order Comment: Speci men Type: BLOOD SPECIMEN Performed By: #### 2 4323-8, HSTNT, 2776-05, ####[facility]ORYCLIA [id number] [address] Phosphate [Mass/Vol] 3.2 mg/dL Normal 2.7-4.8 [facility] Comment on above: Order Comment: Speci men Type: BLOOD SPECIMEN Performed By: #### 2 4321-2, 2776-05, ####[facility]ORYCLIA [id number] [place], [place] [id number] [place] [address] [place] THERAPY NTon 06-14-2021 THERAPY NT Normal [facility] THERAPY NT Normal [facility] THERAPY NT Normal [facility] US DVT LOWER BILon US DVT LOWER RAINER Normal [facility] ALLIED HEALTHon 06-13-2021 ALLIED HEALTH Normal [facility] Basic metabolic 2000 panelon 06-13-2021 Anion gap [Moles/Vol] 7 mmol/L Low 9-18 [facility] Comment on above: Order Comment: Speci men Type: BLOOD SPECIMEN Performed By: #### 2 4321-2, , 2776-05 ####[facility]ORYCLIA [id number] [address] STATES OF [facility] Calcium [Mass/Vol] 8.8 mg/dL Normal 8.5-10.2 [facility] Comment on above: Order Comment: Speci men Type: BLOOD SPECIMEN Performed By: #### 2 4321-2, , 2776-05 ####[facility]ORYCLIA [id number] [address] [place] Chloride [Moles/Vol] 120 mmol/L High 97-105 [facility] Comment on above: Order Comment: Speci men Type: BLOOD SPECIMEN Performed By: #### 2 4321-2, , 2776-05 ####[facility]ATORYCLIA [id number] [place] [id number] [place] CO2 [Moles/Vol] 28 mmol/L Normal 22-30 [facility] Comment on above: Order Comment: Speci men Type: BLOOD SPECIMEN Performed By: #### 2 4321-2, , 2776-05 ####[facility]ORYCLIA [id number] [place] [address] [place] Creatinine [Mass/Vol] 0.78 mg/dL Normal 0.73-1.22 [facility] Comment on above: Order Comment: Speci [facility] Type: BLOOD SPECIMEN Performed By: #### 2 4321-2, 39377-0, 2777-1 ####[facility]ATORYCLIA [id number] [place] [address] [place] GFR/1.73 sq M.predicted MDRD (S/P/Bld) [Vol rate/Area] mL/min/{1.73_m2} Normal [facility] Comment on [...] actual GFR. Performed By: #### 2 4321-2, 12538-5, 277-1 ####[facility]ATORYCLIA [id number] [place] [address] [place] Glucose [Mass/Vol] 126 mg/dL High 74-99 [facility] Comment on above: Order Comment: [facility] Type: BLOOD SPECIMEN Result Comment: The [place] Diabetes Association (ADA) provides guidance for cutoff [...] Standards of Medical Care in Diabetes 2016, [place] Diabetes Association. Diabetes Care. 2016.39(Suppl 1). Performed By: #### 2 4321-2, , 2776-05 ####[facility]ATORYCLIA [id number] [place], [place] [id number] [place] [address] [place] [facility] Potassium [Moles/Vol] 3.6 mmol/L Low 3.7-5.1 [facility] Comment on above: Order Comment: Speci men Type: BLOOD SPECIMEN Performed By: #### 2 4321-2, , 2776-05 ####[facility]ATORYCLIA [id number] [place], [place] [address] [place] [address] [place] Sodium [Moles/Vol] 155 mmol/L High 136-144 [facility] Comment on above: Order Comment: Speci men Type: BLOOD SPECIMEN Performed By: #### 2 1-2, , 2776-05 ####[facility]ATORYCLIA [id number] [place] [address] [place] Urea nitrogen [Mass/Vol] 36 mg/dL High 9-24 [facility] Comment on above: Order Comment: Speci men Type: BLOOD SPECIMEN Performed By: #### 2 1-2, , 2776-05 ####[facility]ORYCLIA [id number] [address] STATES OF [facility] Anion gap [Moles/Vol] 6 mmol/L Low 9-18 [facility] Comment on above: Order Comment: Speci men Type: BLOOD SPECIMEN Performed By: #### 2 4321-2, 2776-05, ####[facility]ORYCLIA [id number] [place] [address] [place] Calcium [Mass/Vol] 6.5 mg/dL Low 8.5-10.2 [facility] Comment on above: Order Comment: Speci men Type: BLOOD SPECIMEN Performed By: #### 2 4321-2, 2776-05, ####[facility]ORYCLIA [id number] [place] [address] [place] Chloride [Moles/Vol] 124 mmol/L High 97-105 [facility] Comment on above: Order Comment: Speci men Type: BLOOD SPECIMEN Performed By: #### 2 4321-2, 2776-05, ####[facility]ORYCLIA [id number] [place] [address] [place] CO2 [Moles/Vol] 24 mmol/L Normal 22-30 [facility] Comment on above: Order Comment: Speci men Type: BLOOD SPECIMEN Performed By: #### 2 4321-2, 2776-05, ####[facility]ATORYCLIA [id number] [place] [address] [place] Creatinine [Mass/Vol] 0.61 mg/dL Low 0.73-1.22 [facility] Comment on above: Order Comment: Speci men Type: BLOOD SPECIMEN Performed By: #### 2 4321-2, 2776-05, ####[facility]ORYCLIA [id number] [address] [place] GFR/1.73 sq M.predicted MDRD (S/P/Bld) [Vol rate/Area] mL/min/{1.73_m2} Normal [facility] Comment on [...] 4321-2, 2776-05, ####[facility]ATORYCLIA [id number] [place] [address] [place] Glucose [Mass/Vol] 100 mg/dL High 74-99 [facility] Comment on above: Order Comment: Speci men Type: BLOOD SPECIMEN Result Comment: The [place] [employer] (ADA) provides guidance for cutoff [...] Standards of Medical Care in Diabetes 2016, [place] [employer]. Diabetes Care. 2016.39(Suppl 1). Performed By: #### 2 4321-2, 2776-05, ####[facility]ORYCLIA [id number] [address] STATES OF [facility] Potassium [Moles/Vol] 2.7 mmol/L Low 3.7-5.1 [facility] Comment on above: Order Comment: Speci men Type: BLOOD SPECIMEN Performed By: #### 2 4321-2, 2776-05, ####[facility]ATORYCLIA [id number] [address] STATES [facility] Sodium [Moles/Vol] 154 mmol/L High 136-144 [facility] Comment on above: Order Comment: Speci men Type: BLOOD SPECIMEN Performed By: #### 2 4321-2, 2776-05, ####[facility]ATORYCLIA [id number] [place], [place] [id number] [place] [address] [place] Urea nitrogen [Mass/Vol] 29 mg/dL High 9-24 [facility] Comment on above: Order Comment: Speci men Type: BLOOD SPECIMEN Performed By: #### 2 4321-2, 2776-05, ####[facility]ATORYCLIA [id number] [address] OF [facility] CASE MANAGEMon 06-13-2021 CASE MANAGEM Normal [facility] CBC panel Auto (Bld)on 06-13 Erythrocyte distribution width (RBC) [Ratio] 15.9 % High 11.5-15.0 [facility] Comment on above: Order Comment: Speci men Type: BLOOD SPECIMEN Performed By: #### 5 8410-2 ####[facility]ATORYCLIA [id number] [address] Hematocrit (Bld) [Volume fraction] 34.3 % Low 39.0-51.0 [facility] Comment on above: Order Comment: Speci men Type: BLOOD SPECIMEN Performed By: #### 5 8410-2 ####[facility]ORYCLIA [id number] [address] Hemoglobin (Bld) [Mass/Vol] 9.9 g/dL Low 13.0-17.0 [facility] Comment on above: Order Comment: Speci men Type: BLOOD SPECIMEN Performed By: #### 5 8410-2 ####[facility]ATORYCLIA [id number] [address] MCH (RBC) [Entitic mass] 27.3 pg Normal 26.0-34.0 [facility] Comment on above: Order Comment: Speci men Type: BLOOD SPECIMEN Performed By: #### 5 8410-2 ####[facility]ATORYCLIA [id number] [address] MCHC (RBC) [Mass/Vol] 28.9 g/dL Low 30.5-36.0 [facility] Comment on above: Order Comment: Speci men Type: BLOOD SPECIMEN Performed By: #### 5 8410-2 ####[facility]ORYCLIA [id number] [address] MCV (RBC) [Entitic vol] 94.5 fL Normal 80.0-100.0 [facility] Comment on above: Order Comment: Speci men Type: BLOOD SPECIMEN Performed By: #### 5 8410-2 ####[facility]ATORYCLIA [id number] [address] Nucleated RBC (Bld) [#/Vol] 10*3/uL Normal <0.01 [facility] Comment on above: Order Comment: Speci men Type: BLOOD SPECIMEN Performed By: #### 5 8410-2 ####[facility]ATORYCLIA [id number] [address] Platelet mean volume (Bld) [Entitic vol] 11.3 fL Normal 9.0-12.7 [facility] Comment on above: Order Comment: Speci men Type: BLOOD SPECIMEN Performed By: #### 5 8410-2 ####[facility]ORYCLIA [id number] [address] Platelets (Bld) [#/Vol] 269 10*3/uL Normal 150-400 [facility] Comment on above: Order Comment: Speci men Type: BLOOD SPECIMEN Performed By: #### 5 8410-2 ####[facility]ORYCLIA [id number] [address] RBC (Bld) [#/Vol] 3.63 10*6/uL Low 4.20-6.00 [facility] Comment on above: Order Comment: Speci men Type: BLOOD SPECIMEN Performed By: #### 5 8410-2 ####[facility]ATORYCLIA [id number] [address] WBC (Bld) [#/Vol] 12.77 10*3/uL High 3.70-11.00 [facility] Comment on above: Order Comment: Speci men Type: BLOOD SPECIMEN Performed By: #### 5 8410-2 ####[facility]ORYCLIA [id number] [address] Gas and Carbon monoxide pane l (BldV)on 06-13-2021 Base excess Calc (BldV) [Moles/Vol] 5.7 mmol/L High 0-2 [facility] Comment on above: Order Comment: Speci men Type: VENOUS BLOOD SPECIMEN Performed By: #### 2 4344-4 ####[facility]ORYCLIA [id number] [address] Body temperature 99.5 [degF] Normal [facility] Comment on above: Order Comment: Speci men Type: VENOUS BLOOD SPECIMEN Performed By: #### 2 4344-4 ####[facility] LABORATORYCLIA [id number] [address] CALCIUM IONIZED, PH CORRECTED 1.24 mmol/L Normal 1.08-1.30 [facility] Comment on above: Order Comment: Speci men Type: VENOUS BLOOD SPECIMEN Performed By: #### 2 4344-4 ####[facility]ORYCLIA [id number] [address] Calcium.ionized (BldV) [Mass/Vol] 1.23 mmol/L Normal 1.08-1.30 [facility] Comment on above: Order Comment: Speci men Type: VENOUS BLOOD SPECIMEN Performed By: #### 2 4344-4 ####[facility]ATORYCLIA [id number] [address] Carboxyhemoglobin (BldV) [Mass fraction] 1.2 % Normal 0.0-2.0 [facility] Comment on above: Order Comment: Speci men Type: VENOUS BLOOD SPECIMEN Result Comment: Carb oxyhemoglobin Reference Range for Smokers: 2.0-8.0% Performed By: #### 2 4344-4 ####[facility]ORYCLIA [id number] [address] CO2 (BldV) [Partial pressure] 48 mm[Hg] Normal 42-55 [facility] Comment on above: Order Comment: Speci men Type: VENOUS BLOOD SPECIMEN Performed By: #### 2 4344-4 ####[facility]ORYCLIA [id number] [address] CO2 [Moles/Vol] 28.2 mmol/L Normal 25-29 [facility] Comment on above: Order Comment: Speci men Type: VENOUS BLOOD SPECIMEN Performed By: #### 2 4344-4 ####[facility] LABORATORYCLIA [id number] [address] CO2 adjusted to patient's actual temperature (BldV) [Partial pressure] 49 mmHg Normal 42-55 [facility] Comment on above: Order Comment: Speci men Type: VENOUS BLOOD SPECIMEN Performed By: #### 2 4344-4 ####[facility]ORYCLIA [id number] [address] Glucose [Mass/Vol] 131 mg/dL High 60-105 [facility] Comment on above: Order Comment: Speci men Type: VENOUS BLOOD SPECIMEN Performed By: #### 2 4344-4 ####[facility]ORYCLIA [id number] [address] HCO3 (Bld) [Moles/Vol] 30.6 mmol/L High 24-28 [facility] Comment on above: Order Comment: Speci men Type: VENOUS BLOOD SPECIMEN Performed By: #### 2 4344-4 ####[facility]ATORYCLIA [id number] [address] Hematocrit (Bld) [Volume fraction] 32.8 % Low 39.0-51.0 [facility] Comment on above: Order Comment: Speci men Type: VENOUS BLOOD SPECIMEN Performed By: #### 2 4344-4 ####[facility]ORYCLIA [id number] [address] Hemoglobin (Bld) [Mass/Vol] 10.6 g/dL Low 13.0-17.0 [facility] Comment on above: Order Comment: Speci men Type: VENOUS BLOOD SPECIMEN Performed By: #### 2 4344-4 ####[facility]ATORYCLIA [id number] [address] OF [place] 6 Liters/min Normal [facility] Comment on above: Order Comment: Speci men Type: VENOUS BLOOD SPECIMEN Performed By: #### 2 4344-4 ####[facility]ATORYCLIA [id number] [place], [place] [id number] [place] [address] [place] Methemoglobin (Bld) [Mass fraction] 1.0 % Normal 0.0-1.5 [facility] Comment on above: Order Comment: Speci men Type: VENOUS BLOOD SPECIMEN Performed By: #### 2 4344-4 ####[facility]ATORYCLIA [id number] [address] O2 THERAPY NC = Nasal Cannula Normal [facility] Comment on above: Order Comment: Speci men Type: VENOUS BLOOD SPECIMEN Performed By: #### 2 4344-4 ####[facility]ORYCLIA [id number] [address] Oxygen (BldV) [Partial pressure] 42 mm[Hg] Normal 35-45 [facility] Comment on above: Order Comment: Speci men Type: VENOUS BLOOD SPECIMEN Performed By: #### 2 4344-4 ####[facility]ORYCLIA [id number] [address] Oxygen adjusted to patient's actual temperature (BldV) [Partial pressure] 43.8 mmHg Normal 35-45 [facility] Comment on above: Order Comment: Speci men Type: VENOUS BLOOD SPECIMEN Performed By: #### 2 4344-4 ####[facility]ORYCLIA [id number] [address] OF [place] Oxygen saturation in Blood 76.7 % Normal 60-85 [facility] Comment on above: Order Comment: Speci men Type: VENOUS BLOOD SPECIMEN Performed By: #### 2 4344-4 ####[facility]ATORYCLIA [id number] [address] Oxyhemoglobin (BldV) [Mass fraction] 75 % Normal 60-85 [facility] Comment on above: Order Comment: Speci men Type: VENOUS BLOOD SPECIMEN Performed By: #### 2 4344-4 ####[facility]ORYCLIA [id number] pH (BldV) 7.42 [pH] Normal 7.32-7.42 [facility] Comment on above: Order Comment: Speci men Type: VENOUS BLOOD SPECIMEN Performed By: #### 2 4344-4 ####[facility]ORYCLIA [id number] [address] pH adjusted to patient's actual temperature (BldV) 7.41 Normal 7.32-7.42 [facility] Comment on above: Order Comment: Speci men Type: VENOUS BLOOD SPECIMEN Performed By: #### 2 4344-4 ####[facility]ORYCLIA [id number] [address] Potassium [Moles/Vol] 3.5 mmol/L Normal 3.5-5.0 [facility] Comment on above: Order Comment: Speci men Type: VENOUS BLOOD SPECIMEN Performed By: #### 2 4344-4 ####[facility]ATORYCLIA [id number] [address] STATES OF [facility] Sodium [Moles/Vol] 157 mmol/L High 136-144 [facility] Comment on above: Order Comment: Speci men Type: VENOUS BLOOD SPECIMEN Performed By: #### 2 4344-4 ####[facility]ATORYCLIA [id number] [address] [place] Magnesium SerPl-mCncon 06-13 Magnesium [Mass/Vol] 3.0 mg/dL High 1.7-2.3 [facility] Comment on above: Order Comment: Speci men Type: BLOOD SPECIMEN Performed By: #### 2 4321-2, 05032-2, 2776-05 ####[facility]ORYCLIA [id number] [address] OF [facility] Magnesium [Mass/Vol] 2.2 mg/dL Normal 1.7-2.3 [facility] Comment on above: Order Comment: Speci men Type: BLOOD SPECIMEN Performed By: #### 2 4321-2, 2776, ####[facility]ATORYCLIA [id number] [place] [address] [place] Phosphate SerPl-mCncon 06-13 Phosphate [Mass/Vol] 2.2 mg/dL Low 2.7-4.8 [facility] Comment on above: Order Comment: Speci men Type: BLOOD SPECIMEN Performed By: #### 2 4321-2, , 2776-05 ####[facility]ATORYCLIA [id number] [place] [address] [place] [facility] Phosphate [Mass/Vol] 1.8 mg/dL Low 2.7-4.8 [facility] Comment on above: Order Comment: Speci men Type: BLOOD SPECIMEN Performed By: #### 2 4321-2, 2776-05, ####[facility]ATORYCLIA [id number] [address] [place] XR CHEST 1V FRONTALon 2021 XR CHEST 1V FRONTAL Normal [facility] ALLIED HEALTHon 06-12-2021 ALLIED HEALTH Normal [facility] BRIEF OP NOTon 06-12-2021 BRIEF OP NOT Normal [facility] Bacteria Fld Culton 06-12-19 22 Bacteria identified Cx Nom (Body fld) CULTURE, BODY FLD: No growth 5 days GRAM STAIN: No organisms seen Moderate Polymorphonuclear leukocytes Normal [facility] Comment on above: Performed By: #### 6 11-4 ####[facility]ATORYCLIA [id number] [place] [address] [place] Basic metabolic 2000 panelon 06-12-2021 Anion gap [Moles/Vol] 6 mmol/L Low 9-18 [facility] Comment on above: Order Comment: Speci men Type: BLOOD SPECIMEN Performed By: #### 2 777-1, 33399-3, ####[facility]ATORYCLIA [id number] [place] [address] [place] Calcium [Mass/Vol] 8.7 mg/dL Normal 8.5-10.2 [facility] Comment on above: Order Comment: Speci men Type: BLOOD SPECIMEN Performed By: #### 2 777-1, 72451-4, ####[facility]ATORYCLIA [id number] [address] Chloride [Moles/Vol] 118 mmol/L High 97-105 [facility] Comment on above: Order Comment: Speci men Type: BLOOD SPECIMEN Performed By: #### 2 777-1, 43948-3, ####[facility]ATORYCLIA [id number] [address] [place] CO2 [Moles/Vol] 28 mmol/L Normal 22-30 [facility] Comment on above: Order Comment: Speci men Type: BLOOD SPECIMEN Performed By: #### 2 777-1, 51393-1, ####[facility]ATORYCLIA [id number] [address] [place] Creatinine [Mass/Vol] 0.77 mg/dL Normal 0.73-1.22 [facility] Comment on above: Order Comment: Speci men Type: BLOOD SPECIMEN Performed By: #### 2 777-1, , ####[facility]ATORYCLIA [id number] [address] [place] GFR/1.73 sq M.predicted MDRD (S/P/Bld) [Vol rate/Area] mL/min/{1.73_m2} Normal [facility] Comment on [...] 777-1, , ####[facility]ATORYCLIA [id number] [place] [address] [place] Glucose [Mass/Vol] 116 mg/dL High 74-99 [facility] Comment on above: Order Comment: Speci men Type: BLOOD SPECIMEN Result Comment: The [place] [employer] (ADA) provides guidance for cutoff [...] Standards of Medical Care in Diabetes 2016, [place] [employer]. Diabetes Care. 2016.39(Suppl 1). Performed By: #### 2 777-1, , ####[facility]ATORYCLIA [id number] [place] [address] [place] Potassium [Moles/Vol] 4.0 mmol/L Normal 3.7-5.1 [facility] Comment on above: Order Comment: Speci men Type: BLOOD SPECIMEN Performed By: #### 2 777-1, , ####[facility]ATORYCLIA [id number] [place] [address] [place] Sodium [Moles/Vol] 152 mmol/L High 136-144 [facility] Comment on above: Order Comment: Speci men Type: BLOOD SPECIMEN Performed By: #### 2 777-1, , ####[facility]ATORYCLIA [id number] [place] [address] [place] Urea nitrogen [Mass/Vol] 34 mg/dL High 9-24 [facility] Comment on above: Order Comment: Speci men Type: BLOOD SPECIMEN Performed By: #### 2 777-1, 43372-5, 62875-4 ####[facility]ATORYCLIA [id number] [address] CBC panel Auto (Bld)on 06-12 Erythrocyte distribution width (RBC) [Ratio] 16.1 % High 11.5-15.0 [facility] Comment on above: Order Comment: Speci men Type: BLOOD SPECIMEN Performed By: #### 5 8410-2 ####[facility]ATORYCLIA [id number] [address] Hematocrit (Bld) [Volume fraction] 32.8 % Low 39.0-51.0 [facility] Comment on above: Order Comment: Speci men Type: BLOOD SPECIMEN Performed By: #### 5 8410-2 ####[facility]ORYCLIA [id number] [address] Hemoglobin (Bld) [Mass/Vol] 9.9 g/dL Low 13.0-17.0 [facility] Comment on above: Order Comment: Speci men Type: BLOOD SPECIMEN Performed By: #### 5 8410-2 ####[facility]ORYCLIA [id number] [address] MCH (RBC) [Entitic mass] 28.4 pg Normal 26.0-34.0 [facility] Comment on above: Order Comment: Speci men Type: BLOOD SPECIMEN Performed By: #### 5 8410-2 ####[facility]ORYCLIA [id number] [address] MCHC (RBC) [Mass/Vol] 30.2 g/dL Low 30.5-36.0 [facility] Comment on above: Order Comment: Speci men Type: BLOOD SPECIMEN Performed By: #### 5 8410-2 ####[facility]ORYCLIA [id number] [address] MCV (RBC) [Entitic vol] 94.3 fL Normal 80.0-100.0 [facility] Comment on above: Order Comment: Speci men Type: BLOOD SPECIMEN Performed By: #### 5 8410-2 ####[facility]ORYCLIA [id number] [address] Nucleated RBC (Bld) [#/Vol] 10*3/uL Normal <0.01 [facility] Comment on above: Order Comment: Speci men Type: BLOOD SPECIMEN Performed By: #### 5 8410-2 ####[facility]ORYCLIA [id number] [address] Platelet mean volume (Bld) [Entitic vol] 11.2 fL Normal 9.0-12.7 [facility] Comment on above: Order Comment: Speci men Type: BLOOD SPECIMEN Performed By: #### 5 8410-2 ####[facility]ORYCLIA [id number] [address] Platelets (Bld) [#/Vol] 218 10*3/uL Normal 150-400 [facility] Comment on above: Order Comment: Speci men Type: BLOOD SPECIMEN Performed By: #### 5 8410-2 ####[facility]ORYCLIA [id number] [address] RBC (Bld) [#/Vol] 3.48 10*6/uL Low 4.20-6.00 [facility] Comment on above: Order Comment: Speci men Type: BLOOD SPECIMEN Performed By: #### 5 8410-2 ####[facility]ORYCLIA [id number] [address] WBC (Bld) [#/Vol] 13.33 10*3/uL High 3.70-11.00 [facility] Comment on above: Order Comment: Speci men Type: BLOOD SPECIMEN Performed By: #### 5 8410-2 ####[facility]ORYCLIA [id number] [address] CONSULT PROGon 06-12-2021 CONSULT PROG Normal [facility] CT [address]N PLACE PERIT/RETROP [place] BIon 06-12-[address] PERIT/RETROP FL BI Normal [facility] HISTORY PHYSICALon HISTORY PHYSICAL Normal [facility] Magnesium SerPl-mCncon 06-12 Magnesium [Mass/Vol] 2.7 mg/dL High 1.7-2.3 [facility] Comment on above: Order Comment: Speci men Type: BLOOD SPECIMEN Performed By: #### 2 777-1, 38978-1, 60818-4 ####[facility]ORYCLIA [id number] [address] PT panel Coag (PPP)on 2021 INR Coag (PPP) [Relative time] 1.1 {INR} Normal 0.9-1.3 [facility] Comment on above: Order Comment: Speci men Type: BLOOD SPECIMEN Result Comment: Yris min K Antagonist (VKA) Therapeutic Range: INR 2 to 3 (Target INR of 2.5)Note: For patients treated with VKA drugs, such as warfarin, the [employer] 2012 Guideline recommends [...] al. Chest 2012, 141:7S-47SNishimura RA, et al. [facility] 2017, 70: 252-289 Performed By: #### 3 4528-0 ####[facility]ATORYCLIA [id number] [place] [id number] [facility] PT Coag (PPP) [Time] 11.9 s Normal 9.7-13.0 [facility] Comment on above: Order Comment: Speci men Type: BLOOD SPECIMEN Performed By: #### 3 4528-0 ####[facility]ORYCLIA [id number] [address] Phosphate SerPl-mCncon 06-12 Phosphate [Mass/Vol] 2.2 mg/dL Low 2.7-4.8 [facility] Comment on above: Order Comment: Speci men Type: BLOOD SPECIMEN Performed By: #### 2 777-1, 96886-4, 30296-9 ####[facility]ORYCLIA [id number] [address] XR ABDOMEN 1V SUPINEon 06-12 XR ABDOMEN 1V SUPINE Normal [facility] ALLIED HEALTHon 06-11-2021 ALLIED HEALTH Normal [facility] Bacteria Bld Culton 06-11-19 22 Bacteria identified Cx Nom (Bld) CULTURE, BLOOD: No growth 5 days Normal [facility] Comment on above: Performed By: #### 6 00-7 ####[facility]ORYCLIA [id number] [address] Bacteria identified Cx Nom (Bld) CULTURE, BLOOD: No growth 5 days Normal [facility] Comment on above: Performed By: #### 6 00-7 ####[facility]ORYCLIA [id number] [address] Bacteria Ur Culton 2 Bacteria identified Cx Nom (U) CULTURE, URINE: No growth (<1,000 CFU/ml) [facility] Comment on above: Performed By: #### 6 30-4 ####[facility]ORYCLIA [id number] [address] Basic metabolic 2000 panelon 06-11-2021 Anion gap [Moles/Vol] 9 mmol/L Normal 9-18 [facility] Comment on above: Order Comment: Speci men Type: BLOOD SPECIMEN Performed By: #### 1 9123-9, 2777, 52402-2 ####[facility]ORYCLIA [id number] [address] STATES [facility] Calcium [Mass/Vol] 8.5 mg/dL Normal 8.5-10.2 [facility] Comment on above: Order Comment: Speci men Type: BLOOD SPECIMEN Performed By: #### 1 9123-9, 2777, 90787-3 ####[facility]ORYCLIA [id number] [address] Chloride [Moles/Vol] 118 mmol/L High 97-105 [facility] Comment on above: Order Comment: Speci men Type: BLOOD SPECIMEN Performed By: #### 1 9123-9, 2776-05, ####[facility]ORYCLIA [id number] [address] CO2 [Moles/Vol] 27 mmol/L Normal 22-30 [facility] Comment on above: Order Comment: Speci men Type: BLOOD SPECIMEN Performed By: #### 1 9123-9, 2776-05, ####[facility]ORYCLIA [id number] [address] STATES OF [facility] Creatinine [Mass/Vol] 0.75 mg/dL Normal 0.73-1.22 [facility] Comment on above: Order Comment: Speci men Type: BLOOD SPECIMEN Performed By: #### 1 9123-9, 27711-04, ####[facility]ORYCLIA [id number] [address] [place] GFR/1.73 sq M.predicted MDRD (S/P/Bld) [Vol rate/Area] mL/min/{1.73_m2} Normal [facility] Comment on [...] GFR. Performed By: #### 1 9123-9, 2777-, 88419-1 ####[facility]ATORYCLIA [id number] [address] OF [facility] Glucose [Mass/Vol] 142 mg/dL High 74-99 [facility] Comment on above: Order Comment: Speci men Type: BLOOD SPECIMEN Result Comment: The [place] [employer] (ADA) provides guidance for cutoff [...] Standards of Medical Care in Diabetes 2016, [place] [employer]. Diabetes Care. 2016.39(Suppl 1). Performed By: #### 1 9123-9, 2777, 33611-6 ####[facility]ORYCLIA [id number] [address] STATES OF [facility] Potassium [Moles/Vol] 3.6 mmol/L Low 3.7-5.1 [facility] Comment on above: Order Comment: Speci men Type: BLOOD SPECIMEN Performed By: #### 1 9123-9, 2777, 92426-2 ####[facility]ORYCLIA [id number] [address] STATES OF [facility] Sodium [Moles/Vol] 154 mmol/L High 136-144 [facility] Comment on above: Order Comment: Speci men Type: BLOOD SPECIMEN Performed By: #### 1 9123-9, 2777-1, 86207-2 ####[facility]ORYCLIA [id number] [address] Urea nitrogen [Mass/Vol] 31 mg/dL High 9-24 [facility] Comment on above: Order Comment: Speci men Type: BLOOD SPECIMEN Performed By: #### 1 9123-9, 2777-1, 34182-1 ####[facility]ATORYCLIA [id number] [address] C diff Tox gens Stl Ql MEGAN+p robeon 06-11-2021 C. difficile toxin genes MEGAN+probe Ql (Stl) Negative Normal Negative for C. difficile toxin by PCR [facility] Comment on above: Order Comment: Speci men Type: STOOL SPECIMEN Performed By: #### 5 4067-4 ####[facility]ATORYCLIA [id number] [address] STATES [facility] CBC W Auto Differential pane l (Bld)on 06-11-2021 Basophils (Bld) [#/Vol] 0.03 10*3/uL Normal <0.11 [facility] Comment on above: Order Comment: Speci men Type: BLOOD SPECIMEN Performed By: #### 5 7021-8 ####[facility] LABORATORYCLIA [id number] [address] Basophils/100 WBC (Bld) 0.2 % Normal [facility] Comment on above: Order Comment: Speci men Type: BLOOD SPECIMEN Performed By: #### 5 7021-8 ####[facility]ATORYCLIA [id number] [address] Differential cell count method Nom (Bld) Auto Normal [facility] Comment on above: Order Comment: Speci men Type: BLOOD SPECIMEN Performed By: #### 5 7021-8 ####[facility]ORATORYCLIA [id number] [address] STATES [facility] Eosinophils (Bld) [#/Vol] 0.19 10*3/uL Normal <0.46 [facility] Comment on above: Order Comment: Speci men Type: BLOOD SPECIMEN Performed By: #### 5 7021-8 ####[facility] LABORATORYCLIA [id number] [address] Eosinophils/100 WBC (Bld) 1.5 % Normal [facility] Comment on above: Order Comment: Speci men Type: BLOOD SPECIMEN Performed By: #### 5 7021-8 ####[facility]ATORYCLIA [id number] [address] Erythrocyte distribution width (RBC) [Ratio] 16.3 % High 11.5-15.0 [facility] Comment on above: Order Comment: Speci men Type: BLOOD SPECIMEN Performed By: #### 5 7021-8 ####[facility] LABORATORYCLIA [id number] [address] Hematocrit (Bld) [Volume fraction] 32.1 % Low 39.0-51.0 [facility] Comment on above: Order Comment: Speci men Type: BLOOD SPECIMEN Performed By: #### 5 7021-8 ####[facility]ATORYCLIA [id number] [address] Hemoglobin (Bld) [Mass/Vol] 9.3 g/dL Low 13.0-17.0 [facility] Comment on above: Order Comment: Speci men Type: BLOOD SPECIMEN Performed By: #### 5 7021-8 ####[facility] LABORATORYCLIA [id number] [address] IMMATURE GRAN % 0.6 % Normal [facility] Comment on above: Order Comment: Speci men Type: BLOOD SPECIMEN Performed By: #### 5 7021-8 ####[facility]ATORYCLIA [id number] [address] IMMATURE GRAN ABS 0.08 k/uL Normal <0.10 [facility] Comment on above: Order Comment: Speci men Type: BLOOD SPECIMEN Performed By: #### 5 7021-8 ####[facility]ATORYCLIA [id number] [address] Lymphocytes (Bld) [#/Vol] 1.65 10*3/uL Normal 1.00-4.00 [facility] Comment on above: Order Comment: Speci men Type: BLOOD SPECIMEN Performed By: #### 5 7021-8 ####[facility]ATORYCLIA [id number] [address] Lymphocytes/100 WBC (Bld) 12.8 % Normal [facility] Comment on above: Order Comment: Speci men Type: BLOOD SPECIMEN Performed By: #### 5 7021-8 ####[facility]ATORYCLIA [id number] [address] MCH (RBC) [Entitic mass] 27.2 pg Normal 26.0-34.0 [facility] Comment on above: Order Comment: Speci men Type: BLOOD SPECIMEN Performed By: #### 5 7021-8 ####[facility]ATORYCLIA [id number] [address] MCHC (RBC) [Mass/Vol] 29.0 g/dL Low 30.5-36.0 [facility] Comment on above: Order Comment: Speci men Type: BLOOD SPECIMEN Performed By: #### 5 7021-8 ####[facility]ATORYCLIA [id number] [address] MCV (RBC) [Entitic vol] 93.9 fL Normal 80.0-100.0 [facility] Comment on above: Order Comment: Speci men Type: BLOOD SPECIMEN Performed By: #### 5 7021-8 ####[facility]ATORYCLIA [id number] [address] Monocytes (Bld) [#/Vol] 0.68 10*3/uL Normal <0.87 [facility] Comment on above: Order Comment: Speci men Type: BLOOD SPECIMEN Performed By: #### 5 7021-8 ####[facility]ORYCLIA [id number] [address] Monocytes/100 WBC (Bld) 5.3 % Normal [facility] Comment on above: Order Comment: Speci men Type: BLOOD SPECIMEN Performed By: #### 5 7021-8 ####[facility]ORYCLIA [id number] [address] Neutrophils (Bld) [#/Vol] 10.22 10*3/uL High 1.45-7.50 [facility] Comment on above: Order Comment: Speci men Type: BLOOD SPECIMEN Performed By: #### 5 7021-8 ####[facility]ORYCLIA [id number] [address] Neutrophils/100 WBC (Bld) 79.6 % Normal [facility] Comment on above: Order Comment: Speci men Type: BLOOD SPECIMEN Performed By: #### 5 7021-8 ####[facility]ORYCLIA [id number] [address] Nucleated RBC (Bld) [#/Vol] 10*3/uL Normal <0.01 [facility] Comment on above: Order Comment: Speci men Type: BLOOD SPECIMEN Performed By: #### 5 7021-8 ####[facility]ORYCLIA [id number] [address] Nucleated RBC/100 WBC (Bld) [Ratio] 0.0 /100 WBC Normal 0.0 [facility] Comment on above: Order Comment: Speci men Type: BLOOD SPECIMEN Performed By: #### 5 7021-8 ####[facility]ORATORYCLIA [id number] [address] Platelet mean volume (Bld) [Entitic vol] 11.1 fL Normal 9.0-12.7 [facility] Comment on above: Order Comment: Speci men Type: BLOOD SPECIMEN Performed By: #### 5 7021-8 ####[facility]ATORYCLIA [id number] [address] Platelets (Bld) [#/Vol] 188 10*3/uL Normal 150-400 [facility] Comment on above: Order Comment: Speci men Type: BLOOD SPECIMEN Performed By: #### 5 7021-8 ####[facility]ATORYCLIA [id number] [address] RBC (Bld) [#/Vol] 3.42 10*6/uL Low 4.20-6.00 [facility] Comment on above: Order Comment: Speci men Type: BLOOD SPECIMEN Performed By: #### 5 7021-8 ####[facility]ATORYCLIA [id number] [address] WBC (Bld) [#/Vol] 12.85 10*3/uL High 3.70-11.00 [facility] Comment on above: Order Comment: Speci men Type: BLOOD SPECIMEN Performed By: #### 5 7021-8 ####[facility]ORATORYCLIA [id number] [address] CBC panel Auto (Bld)on 06-11 Erythrocyte distribution width (RBC) [Ratio] 16.2 % High 11.5-15.0 [facility] Comment on above: Order Comment: Speci men Type: BLOOD SPECIMEN Performed By: #### 5 8410-2 ####[facility]ATORYCLIA [id number] [address] Hematocrit (Bld) [Volume fraction] 34.5 % Low 39.0-51.0 [facility] Comment on above: Order Comment: Speci men Type: BLOOD SPECIMEN Performed By: #### 5 8410-2 ####[facility]ATORYCLIA [id number] [address] Hemoglobin (Bld) [Mass/Vol] 10.3 g/dL Low 13.0-17.0 [facility] Comment on above: Order Comment: Speci men Type: BLOOD SPECIMEN Performed By: #### 5 8410-2 ####[facility]ATORYCLIA [id number] [address] MCH (RBC) [Entitic mass] 28.1 pg Normal 26.0-34.0 [facility] Comment on above: Order Comment: Speci men Type: BLOOD SPECIMEN Performed By: #### 5 8410-2 ####[facility]ATORYCLIA [id number] [address] MCHC (RBC) [Mass/Vol] 29.9 g/dL Low 30.5-36.0 [facility] Comment on above: Order Comment: Speci men Type: BLOOD SPECIMEN Performed By: #### 5 8410-2 ####[facility]ATORYCLIA [id number] [address] MCV (RBC) [Entitic vol] 94.3 fL Normal 80.0-100.0 [facility] Comment on above: Order Comment: Speci men Type: BLOOD SPECIMEN Performed By: #### 5 8410-2 ####[facility]ATORYCLIA [id number] [address] Nucleated RBC (Bld) [#/Vol] 10*3/uL Normal <0.01 [facility] Comment on above: Order Comment: Speci men Type: BLOOD SPECIMEN Performed By: #### 5 8410-2 ####[facility]ATORYCLIA [id number] [address] Platelet mean volume (Bld) [Entitic vol] 10.9 fL Normal 9.0-12.7 [facility] Comment on above: Order Comment: Speci men Type: BLOOD SPECIMEN Performed By: #### 5 8410-2 ####[facility]ATORYCLIA [id number] [address] Platelets (Bld) [#/Vol] 210 10*3/uL Normal 150-400 [facility] Comment on above: Order Comment: Speci men Type: BLOOD SPECIMEN Performed By: #### 5 8410-2 ####[facility]ORATORYCLIA [id number] [place], [place] [id number] [place] [address] [place] [facility] RBC (Bld) [#/Vol] 3.66 10*6/uL Low 4.20-6.00 [facility] Comment on above: Order Comment: Speci men Type: BLOOD SPECIMEN Performed By: #### 5 8410-2 ####[facility]ORATORYCLIA [id number] [address] STATES OF [facility] WBC (Bld) [#/Vol] 13.03 10*3/uL High 3.70-11.00 [facility] Comment on above: Order Comment: Speci men Type: BLOOD SPECIMEN Performed By: #### 5 8410-2 ####[facility]ORATORYCLIA [id number] [address] CONSULT PROGon 06-11-2021 CONSULT PROG Normal [facility] CONSULT PROG Normal [facility] CONSULT PROG Normal [facility] CT ABD/PEL W IVCONon 022 CT ABD/PEL W IVCON Invalid Interpretation Code [facility] Magnesium SerPl-mCncon 06-11 Magnesium [Mass/Vol] 2.7 mg/dL High 1.7-2.3 [facility] Comment on above: Order Comment: Speci men Type: BLOOD SPECIMEN Performed By: #### 1 9123-9, 2777-1, 47071-2 ####[facility]ATORYCLIA [id number] [address] Phosphate SerPl-mCncon 06-11 Phosphate [Mass/Vol] 2.5 mg/dL Low 2.7-4.8 [facility] Comment on above: Order Comment: Speci men Type: BLOOD SPECIMEN Performed By: #### 1 9123-9, 2777-1, 59317-5 ####[facility]ORATORYCLIA [id number] [address] OF [facility] Basic metabolic 2000 panelon 06-10-2021 Anion gap [Moles/Vol] 7 mmol/L Low 9-18 [facility] Comment on above: Order Comment: Speci men Type: BLOOD SPECIMEN Performed By: #### 2 777-1, 26118-8, , HFP ####[facility] LABORATORYCLIA [id number] [address] STATES OF [facility] Calcium [Mass/Vol] 8.5 mg/dL Normal 8.5-10.2 [facility] Comment on above: Order Comment: Speci men Type: BLOOD SPECIMEN Performed By: #### 2 777-1, 65129-5, , HFP ####[facility]ORATORYCLIA [id number] [address] STATES OF [facility] Chloride [Moles/Vol] 118 mmol/L High 97-105 [facility] Comment on above: Order Comment: Speci men Type: BLOOD SPECIMEN Performed By: #### 2 777-1, 79872-5, , HFP ####[facility]ATORYCLIA [id number] [address] [place] CO2 [Moles/Vol] 26 mmol/L Normal 22-30 [facility] Comment on above: Order Comment: Speci men Type: BLOOD SPECIMEN Performed By: #### 2 777-1, 54578-1, , HFP ####[facility]ATORYCLIA [id number] [address] [place] Creatinine [Mass/Vol] 0.70 mg/dL Low 0.73-1.22 [facility] Comment on above: Order Comment: Speci men Type: BLOOD SPECIMEN Performed By: #### 2 777-1, 04984-6, , HFP ####[facility]ATORYCLIA [id number] [address] [place] GFR/1.73 sq M.predicted MDRD (S/P/Bld) [Vol rate/Area] mL/min/{1.73_m2} Normal [facility] Comment on [...] actual GFR. Performed By: #### 2 777-1, 04518-7, , [facility] ####[facility]ORATORYCLIA [id number] [place] [address] [place] Glucose [Mass/Vol] 135 mg/dL High 74-99 [facility] Comment on above: Order Comment: [facility] Type: BLOOD SPECIMEN Result Comment: The [place] Diabetes Association (ADA) provides guidance for cutoff [...] Standards of Medical Care in Diabetes 2016, [place] [employer]. Diabetes Care. 2016.39(Suppl 1). Performed By: #### 2 777-1, 27123-3, , [facility] ####[facility]ORATORYCLIA [id number] [place] [address] [place] Potassium [Moles/Vol] 3.9 mmol/L Normal 3.7-5.1 [facility] Comment on above: Order Comment: Speci [facility] Type: BLOOD SPECIMEN Performed By: #### 2 777-1, 68540-3, , [facility] ####[facility] LABORATORYCLIA [id number] [place], [place] [address] [place] [address] Sodium [Moles/Vol] 151 mmol/L High 136-144 [facility] Comment on above: Order Comment: Speci men Type: BLOOD SPECIMEN Performed By: #### 2 777-1, 16573-0, , [facility] ####[facility] LABORATORYCLIA [id number] [place] [id number] [facility] Urea nitrogen [Mass/Vol] 27 mg/dL High 9-24 [facility] Comment on above: Order Comment: Speci men Type: BLOOD SPECIMEN Performed By: #### 2 777-1, 06178-1, , [facility] ####[facility]ORATORYCLIA [id number] [address] CASE MANAGEMon 06-10-2021 CASE MANAGEM Normal [facility] CBC panel Auto (Bld)on 06-10 Erythrocyte distribution width (RBC) [Ratio] 16.2 % High 11.5-15.0 [facility] Comment on above: Order Comment: Speci men Type: BLOOD SPECIMEN Performed By: #### 5 8410-2 ####[facility]ORATORYCLIA [id number] [address] Hematocrit (Bld) [Volume fraction] 34.8 % Low 39.0-51.0 [facility] Comment on above: Order Comment: Speci men Type: BLOOD SPECIMEN Performed By: #### 5 8410-2 ####[facility]ATORYCLIA [id number] [address] Hemoglobin (Bld) [Mass/Vol] 10.2 g/dL Low 13.0-17.0 [facility] Comment on above: Order Comment: Speci men Type: BLOOD SPECIMEN Performed By: #### 5 8410-2 ####[facility]ATORYCLIA [id number] [address] [place] MCH (RBC) [Entitic mass] 27.1 pg Normal 26.0-34.0 [facility] Comment on above: Order Comment: Speci men Type: BLOOD SPECIMEN Performed By: #### 5 8410-2 ####[facility]ATORYCLIA [id number] [address] MCHC (RBC) [Mass/Vol] 29.3 g/dL Low 30.5-36.0 [facility] Comment on above: Order Comment: Speci men Type: BLOOD SPECIMEN Performed By: #### 5 8410-2 ####[facility]ATORYCLIA [id number] [address] MCV (RBC) [Entitic vol] 92.6 fL Normal 80.0-100.0 [facility] Comment on above: Order Comment: Speci men Type: BLOOD SPECIMEN Performed By: #### 5 8410-2 ####[facility]ATORYCLIA [id number] [address] Nucleated RBC (Bld) [#/Vol] 10*3/uL Normal <0.01 [facility] Comment on above: Order Comment: Speci men Type: BLOOD SPECIMEN Performed By: #### 5 8410-2 ####[facility]ATORYCLIA [id number] [address] Platelet mean volume (Bld) [Entitic vol] 10.4 fL Normal 9.0-12.7 [facility] Comment on above: Order Comment: Speci men Type: BLOOD SPECIMEN Performed By: #### 5 8410-2 ####[facility]ATORYCLIA [id number] [address] Platelets (Bld) [#/Vol] 206 10*3/uL Normal 150-400 [facility] Comment on above: Order Comment: Speci men Type: BLOOD SPECIMEN Performed By: #### 5 8410-2 ####[facility]ATORYCLIA [id number] [address] RBC (Bld) [#/Vol] 3.76 10*6/uL Low 4.20-6.00 [facility] Comment on above: Order Comment: Speci men Type: BLOOD SPECIMEN Performed By: #### 5 8410-2 ####[facility]ATORYCLIA [id number] [address] WBC (Bld) [#/Vol] 11.36 10*3/uL High 3.70-11.00 [facility] Comment on above: Order Comment: Speci men Type: BLOOD SPECIMEN Performed By: #### 5 8410-2 ####[facility]ATORYCLIA [id number] [address] HEPATIC FUNCTION PNLon 06-10 Albumin [Mass/Vol] 3.1 g/dL Low 3.9-4.9 [facility] Comment on above: Order Comment: Speci men Type: BLOOD SPECIMEN Performed By: #### 2 777-1, 81633-0, , HFP ####[facility]ATORYCLIA [id number] [address] ALP [Catalytic activity/Vol] 73 U/L Normal 38-113 [facility] Comment on above: Order Comment: Speci men Type: BLOOD SPECIMEN Performed By: #### 2 777-1, 63652-1, , HFP ####[facility] LABORATORYCLIA [id number] [address] ALT With P-5'-P [Catalytic activity/Vol] 64 U/L High 10-54 [facility] Comment on above: Order Comment: Speci men Type: BLOOD SPECIMEN Performed By: #### 2 777-1, 63847-8, , HFP ####[facility]ORYCLIA [id number] [address] AST With P-5'-P [Catalytic activity/Vol] 44 U/L High 14-40 [facility] Comment on above: Order Comment: Speci men Type: BLOOD SPECIMEN Performed By: #### 2 777-1, 06787-7, , HFP ####[facility]ATORYCLIA [id number] [address] Bilirubin [Mass/Vol] 0.5 mg/dL Normal 0.2-1.3 [facility] Comment on above: Order Comment: Speci men Type: BLOOD SPECIMEN Performed By: #### 2 777-1, 06656-1, , [facility] ####[facility]ATORYCLIA [id number] [address] Bilirubin.conjugated [Mass/Vol] mg/dL Normal <0.2 [facility] Comment on above: Order Comment: Speci men Type: BLOOD SPECIMEN Performed By: #### 2 777-1, 57913-3, , [facility] ####[facility]ATORYCLIA [id number] [address] Protein [Mass/Vol] 5.7 g/dL Low 6.3-8.0 [facility] Comment on above: Order Comment: Speci men Type: BLOOD SPECIMEN Performed By: #### 2 777-1, 29277-7, , [facility] ####[facility]ORATORYCLIA [id number] [address] LEVETIRACETAMon 06-10-2021 levETIRAcetam [Mass/Vol] 57.7 ug/mL High 12.0-46.0 [facility] Comment on [...] developed and its performance characteristics determined by [facility]'s Isrrael Perez [facility] Pathology and Laboratory Medicine [place] ([facility]). It has not been cleared or approved by the FDA. [facility] is regulated under CLIA as qualified to perform high complexity testing. This test is used for clinical purposes. It should not be regarded as investigational or for research. Performed By: #### L DARY ####[facility]FER[facility] LABCLIA [id number] NILESH MCKEON [id number] [address] [place] Magnesium SerPl-mCncon 06-10 Magnesium [Mass/Vol] 2.7 mg/dL High 1.7-2.3 [facility] Comment on above: Order Comment: Speci men Type: BLOOD SPECIMEN Performed By: #### 2 777-1, 76133-7, , [facility] ####[facility]ORATORYCLIA [id number] [place] [address] [place] Phosphate SerPl-ncon 06-10 Phosphate [Mass/Vol] 1.8 mg/dL Low 2.7-4.8 [facility] Comment on above: Order Comment: Speci men Type: BLOOD SPECIMEN Performed By: #### 2 777-1, 10152-2, , [facility] ####[facility]ORATORYCLIA [id number] [place] [address] [place] ALLIED HEALTHon 06-09-2021 ALLIED HEALTH Normal [facility] ALLIED HEALTH Normal [facility] ALLIED HEALTH Normal [facility] ALLIED HEALTH Normal [facility] Basic metabolic 2000 panelon 06-09-2021 Anion gap [Moles/Vol] 8 mmol/L Low 9-18 [facility] Comment on above: Order Comment: Speci men Type: BLOOD SPECIMEN Performed By: #### 2 4321-2, 2776-, ####[facility]ORATORYCLIA [id number] [place] [address] [place] Calcium [Mass/Vol] 8.3 mg/dL Low 8.5-10.2 [facility] Comment on above: Order Comment: Speci men Type: BLOOD SPECIMEN Performed By: #### 2 4321-2, 2776-, ####[facility]ORATORYCLIA [id number] [place] [address] [place] Chloride [Moles/Vol] 116 mmol/L High 97-105 [facility] Comment on above: Order Comment: Speci men Type: BLOOD SPECIMEN Performed By: #### 2 4321-2, 2776-05, ####[facility]ORATORYCLIA [id number] [place] [address] [place] CO2 [Moles/Vol] 27 mmol/L Normal 22-30 [facility] Comment on above: Order Comment: Speci men Type: BLOOD SPECIMEN Performed By: #### 2 4321-2, 2776-05, ####[facility]ORATORYCLIA [id number] [address] STATES OF [facility] Creatinine [Mass/Vol] 0.70 mg/dL Low 0.73-1.22 [facility] Comment on above: Order Comment: Speci men Type: BLOOD SPECIMEN Performed By: #### 2 4321-2, 2776-05, ####[facility]ORATORYCLIA [id number] [place] [address] [place] GFR/1.73 sq M.predicted MDRD (S/P/Bld) [Vol rate/Area] mL/min/{1.73_m2} Normal [facility] Comment on [...] 4321-2, 2777, ####[facility]ORATORYCLIA [id number] [place] [address] [place] Glucose [Mass/Vol] 123 mg/dL High 74-99 [facility] Comment on above: Order Comment: Speci men Type: BLOOD SPECIMEN Result Comment: The [place] Diabetes [employer] (ADA) provides guidance for cutoff [...] Standards of Medical Care in Diabetes 2016, [place] [employer]. Diabetes Care. 2016.39(Suppl 1). Performed By: #### 2 4321-2, 2776-05, ####[facility] LABORATORYCLIA [id number] [address] [place] Potassium [Moles/Vol] 3.5 mmol/L Low 3.7-5.1 [facility] Comment on above: Order Comment: Speci men Type: BLOOD SPECIMEN Performed By: #### 2 4321-2, 2776-05, ####[facility]ORATORYCLIA [id number] [address] [place] Sodium [Moles/Vol] 151 mmol/L High 136-144 [facility] Comment on above: Order Comment: Speci men Type: BLOOD SPECIMEN Performed By: #### 2 4321-2, 2776-05, ####[facility]ORYCL[facility] [id number] [place] [address] [place] Urea nitrogen [Mass/Vol] 39 mg/dL High 9-24 [facility] Comment on above: Order Comment: Speci men Type: BLOOD SPECIMEN Performed By: #### 2 4321-2, 2776-05, ####[facility] [id number] [address] CBC panel Auto (Bld)on 06-09 Erythrocyte distribution width (RBC) [Ratio] 16.2 % High 11.5-15.0 [facility] Comment on above: Order Comment: Speci men Type: BLOOD SPECIMEN Performed By: #### 5 8410-2 ####[facility] [id number] [address] Hematocrit (Bld) [Volume fraction] 33.7 % Low 39.0-51.0 [facility] Comment on above: Order Comment: Speci men Type: BLOOD SPECIMEN Performed By: #### 5 8410-2 ####[facility]ATORYCLIA [id number] [address] Hemoglobin (Bld) [Mass/Vol] 10.2 g/dL Low 13.0-17.0 [facility] Comment on above: Order Comment: Speci men Type: BLOOD SPECIMEN Performed By: #### 5 8410-2 ####[facility]ATORYCLIA [id number] [address] MCH (RBC) [Entitic mass] 27.4 pg Normal 26.0-34.0 [facility] Comment on above: Order Comment: Speci men Type: BLOOD SPECIMEN Performed By: #### 5 8410-2 ####[facility]ORYCLIA [id number] [address] MCHC (RBC) [Mass/Vol] 30.3 g/dL Low 30.5-36.0 [facility] Comment on above: Order Comment: Speci men Type: BLOOD SPECIMEN Performed By: #### 5 8410-2 ####[facility]ORYCLIA [id number] [address] MCV (RBC) [Entitic vol] 90.6 fL Normal 80.0-100.0 [facility] Comment on above: Order Comment: Speci men Type: BLOOD SPECIMEN Performed By: #### 5 8410-2 ####[facility]ORYCLIA [id number] [address] Nucleated RBC (Bld) [#/Vol] 10*3/uL Normal <0.01 [facility] Comment on above: Order Comment: Speci men Type: BLOOD SPECIMEN Performed By: #### 5 8410-2 ####[facility]ORYCLIA [id number] [address] Platelet mean volume (Bld) [Entitic vol] 10.3 fL Normal 9.0-12.7 [facility] Comment on above: Order Comment: Speci men Type: BLOOD SPECIMEN Performed By: #### 5 8410-2 ####[facility]ATORYCLIA [id number] [address] Platelets (Bld) [#/Vol] 219 10*3/uL Normal 150-400 [facility] Comment on above: Order Comment: Speci men Type: BLOOD SPECIMEN Performed By: #### 5 8410-2 ####[facility]ORYCLIA [id number] [address] RBC (Bld) [#/Vol] 3.72 10*6/uL Low 4.20-6.00 [facility] Comment on above: Order Comment: Speci men Type: BLOOD SPECIMEN Performed By: #### 5 8410-2 ####[facility]ATORYCLIA [id number] [address] OF [facility] WBC (Bld) [#/Vol] 13.02 10*3/uL High 3.70-11.00 [facility] Comment on above: Order Comment: Speci men Type: BLOOD SPECIMEN Performed By: #### 5 8410-2 ####[facility]ORYCLIA [id number] [address] CONSULT PROGon 06-09-2021 CONSULT PROG Normal [facility] CONSULT PROG Normal [facility] CT BRAIN WO IVCONon 06-09-[address] BRAIN WO IVCON Normal [facility] Magnesium SerPl-mCncon 06-09 Magnesium [Mass/Vol] 2.8 mg/dL High 1.7-2.3 [facility] Comment on above: Order Comment: Speci men Type: BLOOD SPECIMEN Performed By: #### 2 4321-2, 2777-1, 77518-4 ####[facility]ATORYCLIA [id number] [address] NURSING PROGon 06-09-2021 NURSING PROG Normal [facility] NUTRITIONon 06-09-2021 NUTRITION Normal [facility] PT EDon 06-09-2021 PT ED Normal [facility] Phosphate SerPl-mCncon 06-09 Phosphate [Mass/Vol] 2.2 mg/dL Low 2.7-4.8 [facility] Comment on above: Order Comment: Speci men Type: BLOOD SPECIMEN Performed By: #### 2 4321-2, 2777-1, ####[facility]ATORYCLIA [id number] [address] Vancomycin random [Mass/Vol] on 06-09-2021 Vancomycin [Mass/Vol] 18.9 ug/mL Normal 10.0-20.0 [facility] Comment on above: Order Comment: Speci men Type: BLOOD SPECIMEN Result Comment: Refe rence ranges and high/low indicator flags are provided as general guidelines only. The treating physician must determine appropriate target levels/dosing based on the specific clinical situation. Performed By: #### 4 091-5 ####[facility]ATORYCLIA [id number] [address] XR ABD 2V SUPINE W UPR/DECUB /CTLon 06-09-2021 XR ABD 2V SUPINE W UPR/DECUB/CTL Normal [facility] XR CHEST 1V FRONTALon 2021 XR CHEST 1V FRONTAL Normal [facility] XR NECK SOFT TISSUE 2V AP/LA Ton 06-09-2021 XR NECK SOFT TISSUE 2V AP/LAT Normal [facility] XR SKULL 2V AP/LATon 022 XR SKULL 2V AP/LAT Normal [facility] ALLIED HEALTHon 06-08-2021 ALLIED HEALTH Normal [facility] ANES POSTPROC EVALon 022 ANES POSTPROC EVAL Normal [facility] ANES PRE-OPon 06-08-2021 ANES PRE-OP Normal [facility] BRIEF OP NOTon 06-08-2021 BRIEF OP NOT Normal [facility] Bacteria Spec Anaerobe Culto n 06-08-2021 Bacteria identified Anaer cx Nom (Unsp spec) ORGANISM ID: 1 Rare Staphylococcus saccharolyticus Identification performed by [facility]-Main See scanned document for susceptibility report Normal [facility] Comment on above: Performed By: #### 6 462-6 635-3 ####[facility]ATORYCLIA [id number] [place] [address] [place] Bacteria Wnd Culton 06-08-19 22 Bacteria identified Cx Nom (Wound) CULTURE, INTRAOPERATIVE HARDWARE: No growth 5 days GRAM STAIN: Not performed on specimen type Normal [facility] Comment on above: Performed By: #### 6 462-6 635-3 ####[facility]ATORYCLIA [id number] [place] [address] [place] Basic metabolic 2000 panelon 06-08-2021 Anion gap [Moles/Vol] 9 mmol/L Normal 9-18 [facility] Comment on above: Order Comment: Speci men Type: BLOOD SPECIMEN Performed By: #### 2 4321-2, 2776-05, ####[facility]ATORYCLIA [id number] [place] [address] [place] Calcium [Mass/Vol] 8.7 mg/dL Normal 8.5-10.2 [facility] Comment on above: Order Comment: Speci men Type: BLOOD SPECIMEN Performed By: #### 2 4321-2, 2776-05, ####[facility]ATORYCLIA [id number] [place] [address] [place] Chloride [Moles/Vol] 113 mmol/L High 97-105 [facility] Comment on above: Order Comment: Speci men Type: BLOOD SPECIMEN Performed By: #### 2 4321-2, 2776-05, ####[facility]ATORYCLIA [id number] [place], [place] [id number] [place] [address] [place] CO2 [Moles/Vol] 26 mmol/L Normal 22-30 [facility] Comment on above: Order Comment: Speci men Type: BLOOD SPECIMEN Performed By: #### 2 4321-2, 2776-05, ####[facility]ATORYCLIA [id number] [address] [place] Creatinine [Mass/Vol] 0.68 mg/dL Low 0.73-1.22 [facility] Comment on above: Order Comment: Speci men Type: BLOOD SPECIMEN Performed By: #### 2 4321-2, 2776-05, ####[facility]ATORYCLIA [id number] [address] [place] GFR/1.73 sq M.predicted MDRD (S/P/Bld) [Vol rate/Area] mL/min/{1.73_m2} Normal [facility] Comment on [...] 4321-2, 2776-05, ####[facility]ATORYCLIA [id number] [place], [place] [address] [place] [address] [place] Glucose [Mass/Vol] 146 mg/dL High 74-99 [facility] Comment on above: Order Comment: Speci men Type: BLOOD SPECIMEN Result Comment: The [employer] (ADA) provides guidance for cutoff [...] Standards of Medical Care in Diabetes 2016, [place] [employer]. Diabetes Care. 2016.39(Suppl 1). Performed By: #### 2 4321-2, 2776-05, ####[facility]ATORYCLIA [id number] [address] STATES OF [facility] Potassium [Moles/Vol] 3.6 mmol/L Low 3.7-5.1 [facility] Comment on above: Order Comment: Speci men Type: BLOOD SPECIMEN Performed By: #### 2 4321-2, 2776-05, ####[facility]ATORYCLIA [id number] [address] STATES OF [facility] Sodium [Moles/Vol] 148 mmol/L High 136-144 [facility] Comment on above: Order Comment: Speci men Type: BLOOD SPECIMEN Performed By: #### 2 4321-2, 2776-05, ####[facility]ATORYCLIA [id number] [address] [place] Urea nitrogen [Mass/Vol] 36 mg/dL High 9-24 [facility] Comment on above: Order Comment: Speci men Type: BLOOD SPECIMEN Performed By: #### 2 4321-2, 2776-05, ####[facility]ATORYCLIA [id number] [address] [place] CASE MANAGEMon 02-02-2022 CASE MANAGEM Normal [facility] CBC panel Auto (Bld)on 06-08 Erythrocyte distribution width (RBC) [Ratio] 16.0 % High 11.5-15.0 [facility] Comment on above: Order Comment: Speci men Type: BLOOD SPECIMEN Performed By: #### 5 8410-2 ####[facility]ATORYCLIA [id number] [address] Hematocrit (Bld) [Volume fraction] 38.4 % Low 39.0-51.0 [facility] Comment on above: Order Comment: Speci men Type: BLOOD SPECIMEN Performed By: #### 5 8410-2 ####[facility]ATORYCLIA [id number] [address] Hemoglobin (Bld) [Mass/Vol] 12.1 g/dL Low 13.0-17.0 [facility] Comment on above: Order Comment: Speci men Type: BLOOD SPECIMEN Performed By: #### 5 8410-2 ####[facility]ATORYCLIA [id number] [address] MCH (RBC) [Entitic mass] 28.3 pg Normal 26.0-34.0 [facility] Comment on above: Order Comment: Speci men Type: BLOOD SPECIMEN Performed By: #### 5 8410-2 ####[facility]ATORYCLIA [id number] [address] MCHC (RBC) [Mass/Vol] 31.5 g/dL Normal 30.5-36.0 [facility] Comment on above: Order Comment: Speci men Type: BLOOD SPECIMEN Performed By: #### 5 8410-2 ####[facility]ATORYCLIA [id number] [address] MCV (RBC) [Entitic vol] 89.9 fL Normal 80.0-100.0 [facility] Comment on above: Order Comment: Speci men Type: BLOOD SPECIMEN Performed By: #### 5 8410-2 ####[facility]ORYCLIA [id number] [address] Nucleated RBC (Bld) [#/Vol] 10*3/uL Normal <0.01 [facility] Comment on above: Order Comment: Speci men Type: BLOOD SPECIMEN Performed By: #### 5 8410-2 ####[facility]ATORYCLIA [id number] [address] Platelet mean volume (Bld) [Entitic vol] 10.3 fL Normal 9.0-12.7 [facility] Comment on above: Order Comment: Speci men Type: BLOOD SPECIMEN Performed By: #### 5 8410-2 ####[facility]ATORYCLIA [id number] [address] Platelets (Bld) [#/Vol] 236 10*3/uL Normal 150-400 [facility] Comment on above: Order Comment: Speci men Type: BLOOD SPECIMEN Performed By: #### 5 8410-2 ####[facility]ATORYCLIA [id number] [address] RBC (Bld) [#/Vol] 4.27 10*6/uL Normal 4.20-6.00 [facility] Comment on above: Order Comment: Speci men Type: BLOOD SPECIMEN Performed By: #### 5 8410-2 ####[facility]ATORYCLIA [id number] [address] WBC (Bld) [#/Vol] 11.06 10*3/uL High 3.70-11.00 [facility] Comment on above: Order Comment: Speci men Type: BLOOD SPECIMEN Performed By: #### 5 8410-2 ####[facility]ATORYCLIA [id number] [address] CONSULT PROGon 06-08-2021 CONSULT PROG Normal [facility] CT BRAIN WO IVCONon 06-08-19 CT BRAIN WO IVCON Normal [facility] Magnesium SerPl-mCncon 02-02 -2022 Magnesium [Mass/Vol] 2.8 mg/dL High 1.7-2.3 [facility] Comment on above: Order Comment: Speci men Type: BLOOD SPECIMEN Performed By: #### 2 4321-2, 2777-1, 14278-6 ####[facility]ATORYCLIA [id number] [address] Microorganism Spec Culton Microorganism identified Cx Nom (Unsp spec) CULTURE, FUNGAL: No Fungus isolated after 28 days FUNGAL SMEAR: No fungus seen Normal [facility] Comment on above: Performed By: #### 1 1475-1 ####[facility]ATORYCLIA [id number] [address] NURSING PROGon 06-08-2021 NURSING PROG Normal [facility] OPERATIVE NOon 06-08-2021 OPERATIVE NO Normal [facility] OPERATIVE NO Normal [facility] PT panel Coag (PPP)on 2021 INR Coag (PPP) [Relative time] 1.1 {INR} Normal 0.9-1.3 [facility] Comment on above: Order Comment: Speci men Type: BLOOD SPECIMEN Result Comment: Yris min K Antagonist (VKA) Therapeutic Range: INR 2 to 3 (Target INR of 2.5)Note: For patients treated with VKA drugs, such as warfarin, the [employer] 2012 Guideline recommends [...] 70: 252-289 Performed By: #### 3 4528-0, 86909-3 ####[facility] LABORATORYCLIA [id number] [place], [place] [address] [place] [address] OF [facility] PT Coag (PPP) [Time] 11.9 s Normal 9.7-13.0 [facility] Comment on above: Order Comment: Speci men Type: BLOOD SPECIMEN Performed By: #### 3 4528-0, 42944-2 ####[facility] LABORATORYCLIA [id number] [address] OF [facility] Phosphate SerPl-mCncon 06-08 Phosphate [Mass/Vol] 2.3 mg/dL Low 2.7-4.8 [facility] Comment on above: Order Comment: Speci men Type: BLOOD SPECIMEN Performed By: #### 2 4321-2, 2777-1, 50946-9 ####[facility]ATORYCLIA [id number] [address] aPTT PPPon 06-08-2021 aPTT Coag (PPP) [Time] 24.2 s Normal 23.0-32.4 [facility] Comment on above: Order Comment: Speci men Type: BLOOD SPECIMEN Performed By: #### 3 4528-0, 13219-6 ####[facility]ATORYCLIA [id number] [address] OF [facility] ALLIED HEALTHon 06-07-2021 ALLIED HEALTH Normal [facility] ALLIED HEALTH Normal [facility] ALLIED HEALTH Normal [facility] Bacteria CSF Culton 06-07-19 22 Bacteria identified Cx Nom (CSF) CULTURE, CSF: No growth 14 days GRAM STAIN: No organisms seen Rare Mononuclear cells Rare Polymorphonuclear leukocytes Gram stain performed on cytospun specimen. Normal [facility] Comment on above: Performed By: #### 6 06-4 ####[facility]ATORYCLIA [id number] [address] OF [facility] Basic metabolic 2000 panelon 06-07-2021 Anion gap [Moles/Vol] 9 mmol/L Normal 9-18 [facility] Comment on above: Order Comment: Speci men Type: BLOOD SPECIMEN Performed By: #### 1 9123-9, 27711-04, 85904-2 ####[facility]ATORYCLIA [id number] [address] Calcium [Mass/Vol] 8.8 mg/dL Normal 8.5-10.2 [facility] Comment on above: Order Comment: Speci men Type: BLOOD SPECIMEN Performed By: #### 1 9123-9, 2776-05, 84752-9 ####[facility]ATORYCLIA [id number] [address] OF [facility] Chloride [Moles/Vol] 111 mmol/L High 97-105 [facility] Comment on above: Order Comment: Speci men Type: BLOOD SPECIMEN Performed By: #### 1 9123-9, 2776-05, 78391-4 ####[facility]ATORYCLIA [id number] [address] STATES OF [facility] CO2 [Moles/Vol] 27 mmol/L Normal 22-30 [facility] Comment on above: Order Comment: Speci men Type: BLOOD SPECIMEN Performed By: #### 1 9123-9, 2776-05, 42412-2 ####[facility]ATORYCLIA [id number] [address] OF [facility] Creatinine [Mass/Vol] 0.66 mg/dL Low 0.73-1.22 [facility] Comment on above: Order Comment: Speci men Type: BLOOD SPECIMEN Performed By: #### 1 9123-9, 27711-04, ####[facility]ATORYCLIA [id number] [place] [address] [place] GFR/1.73 sq M.predicted MDRD (S/P/Bld) [Vol rate/Area] mL/min/{1.73_m2} Normal [facility] Comment on [...] GFR. Performed By: #### 1 9123-9, 2777-, 19452-0 ####[facility]ATORYCLIA [id number] [place] [address] [place] Glucose [Mass/Vol] 123 mg/dL High 74-99 [facility] Comment on above: Order Comment: Speci men Type: BLOOD SPECIMEN Result Comment: The [place] [employer] (ADA) provides guidance for cutoff [...] Standards of Medical Care in Diabetes 2016, [place] [employer]. Diabetes Care. 2016.39(Suppl 1). Performed By: #### 1 9123-9, 2777, 08603-7 ####[facility]ATORYCLIA [id number] [address] STATES OF [facility] Potassium [Moles/Vol] 3.6 mmol/L Low 3.7-5.1 [facility] Comment on above: Order Comment: Speci men Type: BLOOD SPECIMEN Performed By: #### 1 9123-9, 2777, 32487-0 ####[facility]ATORYCLIA [id number] [address] [place] Sodium [Moles/Vol] 147 mmol/L High 136-144 [facility] Comment on above: Order Comment: Speci men Type: BLOOD SPECIMEN Performed By: #### 1 9123-9, 2777-1, 62239-4 ####[facility]ATORYCLIA [id number] [address] Urea nitrogen [Mass/Vol] 30 mg/dL High 9-24 [facility] Comment on above: Order Comment: Speci men Type: BLOOD SPECIMEN Performed By: #### 1 9123-9, 2777-1, 40105-9 ####[facility]ATORYCLIA [id number] [address] CBC W Auto Differential pane l (Bld)on 06-07-2021 Basophils (Bld) [#/Vol] 10*3/uL Normal <0.11 [facility] Comment on above: Order Comment: Speci men Type: BLOOD SPECIMEN Performed By: #### 5 7021-8 ####[facility]ATORYCLIA [id number] [address] Basophils/100 WBC (Bld) 0.2 % Normal [facility] Comment on above: Order Comment: Speci men Type: BLOOD SPECIMEN Performed By: #### 5 7021-8 ####[facility]ATORYCLIA [id number] [address] Differential cell count method Nom (Bld) Auto Normal [facility] Comment on above: Order Comment: Speci men Type: BLOOD SPECIMEN Performed By: #### 5 7021-8 ####[facility]ATORYCLIA [id number] [address] Eosinophils (Bld) [#/Vol] 0.06 10*3/uL Normal <0.46 [facility] Comment on above: Order Comment: Speci men Type: BLOOD SPECIMEN Performed By: #### 5 7021-8 ####[facility]ATORYCLIA [id number] [address] Eosinophils/100 WBC (Bld) 0.6 % Normal [facility] Comment on above: Order Comment: Speci men Type: BLOOD SPECIMEN Performed By: #### 5 7021-8 ####[facility] LABORATORYCLIA [id number] [address] Erythrocyte distribution width (RBC) [Ratio] 15.8 % High 11.5-15.0 [facility] Comment on above: Order Comment: Speci men Type: BLOOD SPECIMEN Performed By: #### 5 7021-8 ####[facility] LABORATORYCLIA [id number] [address] Hematocrit (Bld) [Volume fraction] 40.4 % Normal 39.0-51.0 [facility] Comment on above: Order Comment: Speci men Type: BLOOD SPECIMEN Performed By: #### 5 7021-8 ####[facility]ORATORYCLIA [id number] [address] Hemoglobin (Bld) [Mass/Vol] 12.4 g/dL Low 13.0-17.0 [facility] Comment on above: Order Comment: Speci men Type: BLOOD SPECIMEN Performed By: #### 5 7021-8 ####[facility]ATORYCLIA [id number] [address] IMMATURE GRAN % 0.7 % Normal [facility] Comment on above: Order Comment: Speci men Type: BLOOD SPECIMEN Performed By: #### 5 7021-8 ####[facility]ATORYCLIA [id number] [address] IMMATURE GRAN ABS 0.07 k/uL Normal <0.10 [facility] Comment on above: Order Comment: Speci men Type: BLOOD SPECIMEN Performed By: #### 5 7021-8 ####[facility]ATORYCLIA [id number] [address] Lymphocytes (Bld) [#/Vol] 1.43 10*3/uL Normal 1.00-4.00 [facility] Comment on above: Order Comment: Speci men Type: BLOOD SPECIMEN Performed By: #### 5 7021-8 ####[facility]ATORYCLIA [id number] [address] Lymphocytes/100 WBC (Bld) 14.1 % Normal [facility] Comment on above: Order Comment: Speci men Type: BLOOD SPECIMEN Performed By: #### 5 7021-8 ####[facility]ATORYCLIA [id number] [address] MCH (RBC) [Entitic mass] 27.6 pg Normal 26.0-34.0 [facility] Comment on above: Order Comment: Speci men Type: BLOOD SPECIMEN Performed By: #### 5 7021-8 ####[facility]ATORYCLIA [id number] [address] MCHC (RBC) [Mass/Vol] 30.7 g/dL Normal 30.5-36.0 [facility] Comment on above: Order Comment: Speci men Type: BLOOD SPECIMEN Performed By: #### 5 7021-8 ####[facility]ATORYCLIA [id number] [address] MCV (RBC) [Entitic vol] 89.8 fL Normal 80.0-100.0 [facility] Comment on above: Order Comment: Speci men Type: BLOOD SPECIMEN Performed By: #### 5 7021-8 ####[facility]ATORYCLIA [id number] [address] Monocytes (Bld) [#/Vol] 0.82 10*3/uL Normal <0.87 [facility] Comment on above: Order Comment: Speci men Type: BLOOD SPECIMEN Performed By: #### 5 7021-8 ####[facility]ATORYCLIA [id number] [address] Monocytes/100 WBC (Bld) 8.1 % Normal [facility] Comment on above: Order Comment: Speci men Type: BLOOD SPECIMEN Performed By: #### 5 7021-8 ####[facility]ORATORYCLIA [id number] [place] [address] Neutrophils (Bld) [#/Vol] 7.74 10*3/uL High 1.45-7.50 [facility] Comment on above: Order Comment: Speci men Type: BLOOD SPECIMEN Performed By: #### 5 7021-8 ####[facility]ATORYCLIA [id number] [address] Neutrophils/100 WBC (Bld) 76.3 % Normal [facility] Comment on above: Order Comment: Speci men Type: BLOOD SPECIMEN Performed By: #### 5 7021-8 ####[facility]ATORYCLIA [id number] [address] Nucleated RBC (Bld) [#/Vol] 10*3/uL Normal <0.01 [facility] Comment on above: Order Comment: Speci men Type: BLOOD SPECIMEN Performed By: #### 5 7021-8 ####[facility]ORY[facility] [id number] [address] Nucleated RBC/100 WBC (Bld) [Ratio] 0.0 /100 WBC Normal 0.0 [facility] Comment on above: Order Comment: Speci men Type: BLOOD SPECIMEN Performed By: #### 5 7021-8 ####[facility]ORYCL[facility] [id number] [address] Platelet mean volume (Bld) [Entitic vol] 10.4 fL Normal 9.0-12.7 [facility] Comment on above: Order Comment: Speci men Type: BLOOD SPECIMEN Performed By: #### 5 7021-8 ####[facility]ORYCL[facility] [id number] [address] Platelets (Bld) [#/Vol] 236 10*3/uL Normal 150-400 [facility] Comment on above: Order Comment: Speci men Type: BLOOD SPECIMEN Performed By: #### 5 7021-8 ####[facility]ORATORYCLIA [id number] [place] [address] [place] RBC (Bld) [#/Vol] 4.50 10*6/uL Normal 4.20-6.00 [facility] Comment on above: Order Comment: Speci men Type: BLOOD SPECIMEN Performed By: #### 5 7021-8 ####[facility]ATORYCLIA [id number] [address] WBC (Bld) [#/Vol] 10.14 10*3/uL Normal 3.70-11.00 [facility] Comment on above: Order Comment: Speci men Type: BLOOD SPECIMEN Performed By: #### 5 7021-8 ####[facility]ATORYCLIA [id number] [address] CBC panel Auto (Bld)on 06-07 Erythrocyte distribution width (RBC) [Ratio] 15.8 % High 11.5-15.0 [facility] Comment on above: Order Comment: Speci men Type: BLOOD SPECIMEN Performed By: #### 5 8410-2 ####[facility]ORYCLIA [id number] [address] Hematocrit (Bld) [Volume fraction] 40.0 % Normal 39.0-51.0 [facility] Comment on above: Order Comment: Speci men Type: BLOOD SPECIMEN Performed By: #### 5 8410-2 ####[facility]ATORYCLIA [id number] [address] Hemoglobin (Bld) [Mass/Vol] 12.3 g/dL Low 13.0-17.0 [facility] Comment on above: Order Comment: Speci men Type: BLOOD SPECIMEN Performed By: #### 5 8410-2 ####[facility]ATORYCLIA [id number] [address] MCH (RBC) [Entitic mass] 27.3 pg Normal 26.0-34.0 [facility] Comment on above: Order Comment: Speci men Type: BLOOD SPECIMEN Performed By: #### 5 8410-2 ####[facility]ORYCLIA [id number] [address] MCHC (RBC) [Mass/Vol] 30.8 g/dL Normal 30.5-36.0 [facility] Comment on above: Order Comment: Speci men Type: BLOOD SPECIMEN Performed By: #### 5 8410-2 ####[facility]ORYCLIA [id number] [address] MCV (RBC) [Entitic vol] 88.7 fL Normal 80.0-100.0 [facility] Comment on above: Order Comment: Speci men Type: BLOOD SPECIMEN Performed By: #### 5 8410-2 ####[facility]ORYCLIA [id number] [address] Nucleated RBC (Bld) [#/Vol] 10*3/uL Normal <0.01 [facility] Comment on above: Order Comment: Speci men Type: BLOOD SPECIMEN Performed By: #### 5 8410-2 ####[facility]ATORYCLIA [id number] [address] Platelet mean volume (Bld) [Entitic vol] 10.0 fL Normal 9.0-12.7 [facility] Comment on above: Order Comment: Speci men Type: BLOOD SPECIMEN Performed By: #### 5 8410-2 ####[facility]ATORYCLIA [id number] [address] Platelets (Bld) [#/Vol] 234 10*3/uL Normal 150-400 [facility] Comment on above: Order Comment: Speci men Type: BLOOD SPECIMEN Performed By: #### 5 8410-2 ####[facility]ATORYCLIA [id number] [address] RBC (Bld) [#/Vol] 4.51 10*6/uL Normal 4.20-6.00 [facility] Comment on above: Order Comment: Speci men Type: BLOOD SPECIMEN Performed By: #### 5 8410-2 ####[facility]ATORYCLIA [id number] [address] OF [place] WBC (Bld) [#/Vol] 11.47 10*3/uL High 3.70-11.00 [facility] Comment on above: Order Comment: Speci men Type: BLOOD SPECIMEN Performed By: #### 5 8410-2 ####[facility]ATORYCLIA [id number] [address] CONSULT PROGon 06-07-2021 CONSULT PROG Normal [facility] CONSULT PROG Normal [facility] CSF MANUAL DIFFon 06-07-2021 DIF TTL, CSF 92 cells counted Normal [facility] Comment on above: Order Comment: Speci men Type: CEREBROSPINAL FLUID Performed By: #### 3 4563-7, [id number], [id number] ####[facility]ATORYCLIA [id number] [address] EOSIN%, CSF 1 % Normal [facility] Comment on above: Order Comment: Speci men Type: CEREBROSPINAL FLUID Performed By: #### 3 4563-7, [id number], [id number] ####[facility]ORYCLIA [id number] [address] OF [place] LYMPH%, CSF 21 % Low 50-90 [facility] Comment on above: Order Comment: Speci men Type: CEREBROSPINAL FLUID Performed By: #### 3 4563-7, [id number], [id number] ####[facility]ORYCLIA [id number] [address] OF [place] MACRO%, CSF 27 % High <1 [facility] Comment on above: Order Comment: Speci men Type: CEREBROSPINAL FLUID Result Comment: Tati ected result: Previously reported as 22 % on 06/07/2021 at 1:49 PM EST. Performed By: #### 3 4563-7, [id number], [id number] ####[facility]ORYCLIA [id number] [address] [place] MONO%, CSF 36 % Normal 10-50 [facility] Comment on above: Order Comment: Speci men Type: CEREBROSPINAL FLUID Performed By: #### 3 4563-7, [id number], [id number] ####[facility]ATORYCLIA [id number] [address] [place] NEUT%, CSF 11 % High 0-3 [facility] Comment on above: Order Comment: Speci men Type: CEREBROSPINAL FLUID Performed By: #### 3 4563-7, [id number], [id number] ####[facility]ATORYCLIA [id number] [address] OTHER CL%, CSF 4 % Normal [facility] Comment on above: Order Comment: Speci men Type: CEREBROSPINAL FLUID Result Comment: Path review to follow.Corrected result: Previously reported as 10 % on 06/07/2021 at 1:49 PM EST. Performed By: #### 3 4563-7, [id number], [id number] ####[facility]ATORYCLIA [id number] [address] CSF PATHOLOGIST INTERP (LAB REFLEX ORDER-NO BILL)on 06-07-2021 CSF STAFF REVIEW Negative for maligna nt cells. Rare immature myeloid or ventricular lining cells. Normal [facility] Comment on above: Order Comment: Speci men Type: CEREBROSPINAL FLUID Performed By: #### 3 4563-7, [id number], [id number] ####[facility]ORATORYCLIA [id number] [address] Pathologist name Reviewed by Eloise rebolledo MD [facility] Comment on above: Order Comment: Speci men Type: CEREBROSPINAL FLUID Performed By: #### 3 4563-7, [id number], [id number] ####[facility]ATORYCLIA [id number] [address] BRAIN WO IVCONon 06-07-19 CT BRAIN WO IVCON Normal [facility] CT BRAIN WO IVCON Normal [facility] Cell count panel (CSF)on Clarity (CSF) Clear Normal Clear [facility] Comment on above: Order Comment: Speci men Type: CEREBROSPINAL FLUID Performed By: #### 3 4563-7, [id number], [id number] ####[facility]ATORYCLIA [id number] [address] Clarity (Unsp spec) Not Indicated Normal Clear [facility] Comment on above: Order Comment: Speci men Type: CEREBROSPINAL FLUID Performed By: #### 3 4563-7, [id number], [id number] ####[facility]ORYCLIA [id number] [address] Color (CSF) Colorless Normal Colorless [facility] Comment on above: Order Comment: Speci men Type: CEREBROSPINAL FLUID Performed By: #### 3 4563-7, [id number], [id number] ####[facility]ATORYCLIA [id number] [address] Color (Spun CSF) Not Indicated Normal Colorless [facility] Comment on above: Order Comment: Speci men Type: CEREBROSPINAL FLUID Performed By: #### 3 4563-7, [id number], [id number] ####[facility]ORYCLIA [id number] [address] CSF TUBE [employer]BER [employer] Normal [facility] Comment on above: Order Comment: Speci men Type: CEREBROSPINAL FLUID Performed By: #### 3 4563-7, [id number], [id number] ####[facility]ORYCLIA [id number] [address] RBC Manual cnt (CSF) [#/Vol] 42 cells/uL High 0-5 [facility] Comment on above: Order Comment: Speci men Type: CEREBROSPINAL FLUID Performed By: #### 3 4563-7, [id number], [id number] ####[facility]ATORYCLIA [id number] [address] WBC Manual cnt (CSF) [#/Vol] 1 cells/uL Normal 0-5 [facility] Comment on above: Order Comment: Speci men Type: CEREBROSPINAL FLUID Performed By: #### 3 4563-7, [id number], [id number] ####[facility]ATORYCLIA [id number] [address] [place] Glucose CSF-mCncon 2 Glucose (CSF) [Mass/Vol] 92 mg/dL High 40-70 [facility] Comment on above: Order Comment: Speci men Type: CEREBROSPINAL FLUID Result Comment: Lumb ar CSF glucose values of healthy patients are approximately 60% of the plasma values and must always be compared with a concurrently measured plasma value for adequate clinical interpretation.References: 1. Glucose HK (GLUC3) [package insert V 12.0 Israeli]. [employer], [place], [place]. September 2015. 2. Michelle Moore, Loki HGarfield (2015). Chapter 7: Glucose and Lactate. Marianela Rothman.(eds.), Cerebrospinal Fluid in Clinical Neurology. Story: [email or web address]. Performed By: #### 2 880-3, 2342-4 ####[facility]ORATORYCLIA [id number] [address] STATES OF [facility] Lactate (Bld) [Moles/Vol]on 06-07-2021 Lactate [Moles/Vol] 0.9 mmol/L Normal 0.5-2.2 [facility] Comment on above: Order Comment: Speci men Type: BLOOD SPECIMEN Performed By: #### 3 2693-4 ####[facility]ORATORYCLIA [id number] [address] [place] Lipase SerPl-cCncon 06-07-19 22 Lipase [Catalytic activity/Vol] 35 U/L Normal 16-61 [facility] Comment on above: Order Comment: Speci men Type: BLOOD SPECIMEN Performed By: #### 3 040-3, PROCAL ####[facility]ATORYCLIA [id number] [address] [place] Magnesium SerPl-mCncon 06-07 Magnesium [Mass/Vol] 2.7 mg/dL High 1.7-2.3 [facility] Comment on above: Order Comment: Speci men Type: BLOOD SPECIMEN Performed By: #### 1 9123-9, 2777-1, 07810-6 ####[facility]ATORYCLIA [id number] [address] PROCALCITONIN (LAB)on 2021 Procalcitonin [Mass/Vol] 0.13 ng/mL High <0.09 [facility] Comment on above: Order Comment: Speci men Type: BLOOD SPECIMEN Result Comment: For a guided interpretation of test results, please visit the [facility] in Procalcitonin Calculator, [email or web address]. Performed By: #### 3 040-3, PROCAL ####[facility]ENTERCLIA [id number] [address] OF [facility] Phosphate SerPl-ncon 06-07 Phosphate [Mass/Vol] 1.9 mg/dL Low 2.7-4.8 [facility] Comment on above: Order Comment: Speci men Type: BLOOD SPECIMEN Performed By: #### 1 9123-9, 2777-1, 56253-4 ####[facility]CL[facility] [id number] [address] Prot CSF-mCncon 06-07-2021 Protein (CSF) [Mass/Vol] 33 mg/dL Normal 15-45 [facility] Comment on above: Order Comment: Speci men Type: CEREBROSPINAL FLUID Performed By: #### 2 880-3, 2342-4 ####[facility]ATORYCLIA [id number] [address] SARS-CoV-2 RNA Resp Ql MEGAN+p robeon 06-07-2021 SARS-CoV-2 (COVID-19) RNA MEGAN+probe Ql (Resp) COVID 19 RESULT: SARS-CoV-2 (Agent of COVID-19) Not Detected by PCR. This test has been authorized by FDA under an Emergency Use Authorization (EUA). Normal [facility] Comment on above: Performed By: #### 9 4500-6 ####[facility]ORATORYCLIA [id number] [place] [address] [facility] TYPE AND SCREENon 06-07-2021 ABO O Normal [facility] Comment on above: Order Comment: Speci men Type: BLOOD SPECIMEN Performed By: #### T SCR ####[facility] B[facility] BANKCLIA [id number] [place] [id number] [facility] HISTORICAL AB SCR STATUS Negative Normal [facility] Comment on above: Order Comment: Speci men Type: BLOOD SPECIMEN Performed By: #### T SCR ####[facility] BLO[facility] BANKCLIA [id number] [address] Rh Nom (Bld) Positive Normal [facility] Comment on above: Order Comment: Speci men Type: BLOOD SPECIMEN Performed By: #### T SCR ####[facility] B[facility] BANKCLIA [id number] [address] TYPE AND SCREEN EXPIRATION 06/10/2021 23:59 Normal [facility] Comment on above: Order Comment: Speci men Type: BLOOD SPECIMEN Performed By: #### T SCR ####[facility] BLO[facility] BANKCLIA [id number] [address] Vancomycin random [Mass/Vol] on 06-07-2021 Vancomycin [Mass/Vol] 16.5 ug/mL Normal 10.0-20.0 [facility] Comment on above: Order Comment: Speci men Type: BLOOD SPECIMEN Result Comment: Refe rence ranges and high/low indicator flags are provided as general guidelines only. The treating physician must determine appropriate target levels/dosing based on the specific clinical situation. Performed By: #### 4 091-5 ####[facility]ORATORYCLIA [id number] [address] XR CHEST 1V FRONTAL PORTon 0 06-07-2021 XR CHEST 1V FRONTAL PORT Normal [facility] Basic metabolic 2000 panelon 06-06-2021 Anion gap [Moles/Vol] 11 mmol/L Normal 9-18 [facility] Comment on above: Order Comment: Speci men Type: BLOOD SPECIMEN Performed By: #### 2 4321-2, , 2776-05 ####[facility] LABORATORYCLIA [id number] [address] STATES [facility] Calcium [Mass/Vol] 8.6 mg/dL Normal 8.5-10.2 [facility] Comment on above: Order Comment: Speci men Type: BLOOD SPECIMEN Performed By: #### 2 4321-2, , 2776-05 ####[facility] LABORATORYCLIA [id number] [address] [place] Chloride [Moles/Vol] 108 mmol/L High 97-105 [facility] Comment on above: Order Comment: Speci men Type: BLOOD SPECIMEN Performed By: #### 2 4321-2, , 2776-05 ####[facility]ATORYCLIA [id number] [address] [place] CO2 [Moles/Vol] 25 mmol/L Normal 22-30 [facility] Comment on above: Order Comment: Speci men Type: BLOOD SPECIMEN Performed By: #### 2 4321-2, , 2776-05 ####[facility] LABORATORYCLIA [id number] [address] STATES OF [facility] Creatinine [Mass/Vol] 0.76 mg/dL Normal 0.73-1.22 [facility] Comment on above: Order Comment: Speci men Type: BLOOD SPECIMEN Performed By: #### 2 4321-2, , 2776-05 ####[facility] LABORATORYCLIA [id number] [place] [address] [place] GFR/1.73 sq M.predicted MDRD (S/P/Bld) [Vol rate/Area] mL/min/{1.73_m2} Normal [facility] Comment on above: Order Comment: Speci men Type: BLOOD SPECIMEN Result Comment: >60e GFR (Estimated GFR) Units of measure: mL/min/1.73 meters squaredeGFR is derived from the reexpressed MDRD Study equation using the following parameters: serum creatinine, age, gender and race. The creatinine assay has been calibrated to be traceable to IDDE. An eGFR <60 mL/min/1.73m2 for >3 months is consistent with chronic kidney disease. Refer to KDOQI guidelines for clinical interpretation. In patients with unstable renal function, e.g. those with acute kidney injury, the eGFR may not accurately reflect actual GFR. Performed By: #### 2 4321-2, , 2776-05 ####[facility] LABORATORYCLIA [id number] [place] [address] [place] Glucose [Mass/Vol] 116 mg/dL High 74-99 [facility] Comment on above: Order Comment: Speci men Type: BLOOD SPECIMEN Result Comment: The [place] Diabetes Association (ADA) provides guidance for cutoff [...] Standards of Medical Care in Diabetes 2016, [place] Diabetes Association. Diabetes Care. 2016.39(Suppl 1). Performed By: #### 2 4321-2, , 2776-05 ####[facility]ORATORYCLIA [id number] [place] [address] [place] Potassium [Moles/Vol] 3.5 mmol/L Low 3.7-5.1 [facility] Comment on above: Order Comment: Speci men Type: BLOOD SPECIMEN Performed By: #### 2 4321-2, , 2776-05 ####[facility] LABORATORYCLIA [id number] [place] [address] [place] Sodium [Moles/Vol] 144 mmol/L Normal 136-144 [facility] Comment on above: Order Comment: Speci men Type: BLOOD SPECIMEN Performed By: #### 2 4321-2, 87893-8, 2776-05 ####[facility]ATORYCLIA [id number] [address] Urea nitrogen [Mass/Vol] 31 mg/dL High 9-24 [facility] Comment on above: Order Comment: Speci men Type: BLOOD SPECIMEN Performed By: #### 2 4321-2, , 2776-05 ####[facility]ATORYCLIA [id number] [address] CASE MANAGEMon 06-06-2021 CASE MANAGEM Normal [facility] CBC panel Auto (Bld)on 06-06 Erythrocyte distribution width (RBC) [Ratio] 15.8 % High 11.5-15.0 [facility] Comment on above: Order Comment: Speci men Type: BLOOD SPECIMEN Performed By: #### 5 8410-2 ####[facility]ATORYCLIA [id number] [address] Hematocrit (Bld) [Volume fraction] 39.5 % Normal 39.0-51.0 [facility] Comment on above: Order Comment: Speci men Type: BLOOD SPECIMEN Performed By: #### 5 8410-2 ####[facility]ORYCLIA [id number] [address] Hemoglobin (Bld) [Mass/Vol] 12.2 g/dL Low 13.0-17.0 [facility] Comment on above: Order Comment: Speci men Type: BLOOD SPECIMEN Performed By: #### 5 8410-2 ####[facility]ATORYCLIA [id number] [address] MCH (RBC) [Entitic mass] 27.8 pg Normal 26.0-34.0 [facility] Comment on above: Order Comment: Speci men Type: BLOOD SPECIMEN Performed By: #### 5 8410-2 ####[facility]ORYCLIA [id number] [address] MCHC (RBC) [Mass/Vol] 30.9 g/dL Normal 30.5-36.0 [facility] Comment on above: Order Comment: Speci men Type: BLOOD SPECIMEN Performed By: #### 5 8410-2 ####[facility]ATORYCLIA [id number] [address] MCV (RBC) [Entitic vol] 90.0 fL Normal 80.0-100.0 [facility] Comment on above: Order Comment: Speci men Type: BLOOD SPECIMEN Performed By: #### 5 8410-2 ####[facility]ATORYCLIA [id number] [address] Nucleated RBC (Bld) [#/Vol] 10*3/uL Normal <0.01 [facility] Comment on above: Order Comment: Speci men Type: BLOOD SPECIMEN Performed By: #### 5 8410-2 ####[facility]ATORYCLIA [id number] [address] Platelet mean volume (Bld) [Entitic vol] 10.4 fL Normal 9.0-12.7 [facility] Comment on above: Order Comment: Speci men Type: BLOOD SPECIMEN Performed By: #### 5 8410-2 ####[facility]ORYCLIA [id number] [address] Platelets (Bld) [#/Vol] 236 10*3/uL Normal 150-400 [facility] Comment on above: Order Comment: Speci men Type: BLOOD SPECIMEN Performed By: #### 5 8410-2 ####[facility]ORYCLIA [id number] [address] RBC (Bld) [#/Vol] 4.39 10*6/uL Normal 4.20-6.00 [facility] Comment on above: Order Comment: Speci men Type: BLOOD SPECIMEN Performed By: #### 5 8410-2 ####[facility] LABORATORYCLIA [id number] [place], [place] [id number] [place] [address] WBC (Bld) [#/Vol] 9.74 10*3/uL Normal 3.70-11.00 [facility] Comment on above: Order Comment: Speci men Type: BLOOD SPECIMEN Performed By: #### 5 8410-2 ####[facility] LABORATORYCLIA [id number] [place] [address] [facility] CONSULT PROGon 06-06-2021 CONSULT PROG Normal [facility] CONSULT PROG Normal [facility] Magnesium SerPl-mCncon 06-06 Magnesium [Mass/Vol] 2.5 mg/dL High 1.7-2.3 [facility] Comment on above: Order Comment: Speci men Type: BLOOD SPECIMEN Performed By: #### 2 4321-2, 68795-5, 2777-1 ####[facility] LABORATORYCLIA [id number] [address] PT panel Coag (PPP)on 2021 INR Coag (PPP) [Relative time] 1.0 {INR} Normal 0.9-1.3 [facility] Comment on above: Order Comment: Speci men Type: BLOOD SPECIMEN Result Comment: Yris min K Antagonist (VKA) Therapeutic Range: INR 2 to 3 (Target INR of 2.5)Note: For patients treated with VKA drugs, such as warfarin, the [place] [employer] 2012 Guideline recommends [...] 70: 252-289 Performed By: #### 3 4528-0, 01451-4 ####[facility]ATORYCLIA [id number] [address] PT Coag (PPP) [Time] 11.4 s Normal 9.7-13.0 [facility] Comment on above: Order Comment: Speci men Type: BLOOD SPECIMEN Performed By: #### 3 4528-0, 80846-1 ####[facility]ATORYCLIA [id number] [address] Phosphate SerPl-mCncon 06-06 Phosphate [Mass/Vol] 2.3 mg/dL Low 2.7-4.8 [facility] Comment on above: Order Comment: Speci men Type: BLOOD SPECIMEN Performed By: #### 2 4321-2, 89759-5, 2777-1 ####[facility]ORATORYCLIA [id number] [address] THROMBOGRAPH HEPARINASE PANE Kiel 06-06-2021 Clot angle after addition of heparinase TEG (Bld) [Angle] 70.2 degrees Normal 47.0-74.0 [facility] Comment on above: Order Comment: Speci men Type: BLOOD SPECIMEN Performed By: #### T EGHPP ####[facility] LABORATORYCLIA [id number] [address] Clot Lysis 30 Min post maximum clot amplitude TEG (Bld) [Length fraction] 0.0 % Normal 0.0-8.0 [facility] Comment on above: Order Comment: Speci men Type: BLOOD SPECIMEN Performed By: #### T EGHPP ####[facility] LAB[facility]ATORYCLIA [id number] [address] Clotting time after addition of heparinase TEG (Bld) 5.7 minutes Normal 4.0-10.0 [facility] Comment on above: Order Comment: Speci men Type: BLOOD SPECIMEN Performed By: #### T EGHPP ####[facility] LAB[facility]ATORYCLIA [id number] [address] Coagulation index TEG Qn (Bld) 1.2 Normal -4.6-3.2 [facility] Comment on above: Order Comment: Speci men Type: BLOOD SPECIMEN Result Comment: The Coagulation Index, a secondary parameter, is labeled by the emergency medical service manager as for "research use only" and is used per the emergency medical service manager's instructions. Its performance characteristics were determined by [facility] [place] in a manner consistent with CLIA requirements. This test has not been cleared by the U.S. Food and Drug Administration. Performed By: #### T EGHPP ####[facility] LABORATORYCLIA [id number] [address] Maximum clot firmness after addition of heparinase TEG (Bld) [Length] 64.0 mm Normal 51.0-75.0 [facility] Comment on above: Order Comment: Speci men Type: BLOOD SPECIMEN Performed By: #### T EGHPP ####[facility] LABORATORYCLIA [id number] [address] OF [facility] [place] Vancomycin random [Mass/Vol] on 06-06-2021 Vancomycin [Mass/Vol] 17.4 ug/mL Normal 10.0-20.0 [facility] Comment on above: Order Comment: Speci men Type: BLOOD SPECIMEN Result Comment: Refe rence ranges and high/low indicator flags are provided as general guidelines only. The treating physician must determine appropriate target levels/dosing based on the specific clinical situation. Performed By: #### 4 091-5 ####[facility]ATORYCLIA [id number] [address] STATES OF [facility] [place] Vancomycin [Mass/Vol] 13.5 ug/mL Normal 10.0-20.0 [facility] Comment on above: Order Comment: Speci men Type: BLOOD SPECIMEN Result Comment: Refe rence ranges and high/low indicator flags are provided as general guidelines only. The treating physician must determine appropriate target levels/dosing based on the specific clinical situation. Performed By: #### 4 091-5 ####[facility]ATORYCLIA [id number] [address] [place] aPTT PPPon 06-06-2021 aPTT Coag (PPP) [Time] 27.8 s Normal 23.0-32.4 [facility] Comment on above: Order Comment: Speci men Type: BLOOD SPECIMEN Performed By: #### 3 4528-0, 17760-3 ####[facility]ATORYCLIA [id number] [address] [place] Basic metabolic 2000 panelon 06-05-2021 Anion gap [Moles/Vol] 11 mmol/L Normal 9-18 [facility] Comment on above: Order Comment: Speci men Type: BLOOD SPECIMEN Performed By: #### 1 9123-9, 59334-8, 2776- ####[facility]ATORYCLIA [id number] [place] [address] [place] Calcium [Mass/Vol] 8.6 mg/dL Normal 8.5-10.2 [facility] Comment on above: Order Comment: Speci men Type: BLOOD SPECIMEN Performed By: #### 1 9123-9, 65509-7, 2776- ####[facility]ATORYCLIA [id number] [address] STATES OF [facility] Chloride [Moles/Vol] 108 mmol/L High 97-105 [facility] Comment on above: Order Comment: Speci men Type: BLOOD SPECIMEN Performed By: #### 1 9123-9, 59287-6, 2776- ####[facility]ORYCLIA [id number] [place] [address] [place] CO2 [Moles/Vol] 25 mmol/L Normal 22-30 [facility] Comment on above: Order Comment: Speci men Type: BLOOD SPECIMEN Performed By: #### 1 9123-9, 61924-6, 2776- ####[facility]ATORYCLIA [id number] [place] [address] [place] Creatinine [Mass/Vol] 0.77 mg/dL Normal 0.73-1.22 [facility] Comment on above: Order Comment: [facility] Type: BLOOD SPECIMEN Performed By: #### 1 9123-9, 95376-9, 2777-1 ####[facility]ATORYCLIA [id number] [place] [address] [place] GFR/1.73 sq M.predicted MDRD (S/P/Bld) [Vol rate/Area] mL/min/{1.73_m2} Normal [facility] Comment on [...] actual GFR. Performed By: #### 1 9123-9, 02890-0, 2777-1 ####[facility] POINTIA [id number] [place] [address] [place] Glucose [Mass/Vol] 96 mg/dL Normal 74-99 [facility] Comment on above: Order Comment: [facility] Type: BLOOD SPECIMEN Result Comment: The [place] Diabetes Association (ADA) provides guidance for cutoff [...] Standards of Medical Care in Diabetes 2016, [place] [employer] Association. Diabetes Care. 2016.39(Suppl 1). Performed By: #### 1 9123-9, 97335-8, 2776-05 ####[facility]ATORYCLIA [id number] [address] STATES [facility] Potassium [Moles/Vol] 3.9 mmol/L Normal 3.7-5.1 [facility] Comment on above: Order Comment: Speci men Type: BLOOD SPECIMEN Performed By: #### 1 9123-9, 78767-3, 2776- ####[facility]ORYCLIA [id number] [address] Sodium [Moles/Vol] 144 mmol/L Normal 136-144 [facility] Comment on above: Order Comment: Speci men Type: BLOOD SPECIMEN Performed By: #### 1 91239, 11829-0, 2776-05 ####[facility]ATORYCLIA [id number] [address] Urea nitrogen [Mass/Vol] 26 mg/dL High 9-24 [facility] Comment on above: Order Comment: Speci men Type: BLOOD SPECIMEN Performed By: #### 1 9123-9, , 2776-05 ####[facility]ATORYCLIA [id number] [address] CBC panel Auto (Bld)on 06-05 Erythrocyte distribution width (RBC) [Ratio] 15.9 % High 11.5-15.0 [facility] Comment on above: Order Comment: Speci men Type: BLOOD SPECIMEN Performed By: #### 5 8410-2 ####[facility]ORYCLIA [id number] [address] Hematocrit (Bld) [Volume fraction] 39.6 % Normal 39.0-51.0 [facility] Comment on above: Order Comment: Speci men Type: BLOOD SPECIMEN Performed By: #### 5 8410-2 ####[facility]ATORYCLIA [id number] [address] Hemoglobin (Bld) [Mass/Vol] 12.3 g/dL Low 13.0-17.0 [facility] Comment on above: Order Comment: Speci men Type: BLOOD SPECIMEN Performed By: #### 5 8410-2 ####[facility]ATORYCLIA [id number] [address] MCH (RBC) [Entitic mass] 28.1 pg Normal 26.0-34.0 [facility] Comment on above: Order Comment: Speci men Type: BLOOD SPECIMEN Performed By: #### 5 8410-2 ####[facility]ATORYCLIA [id number] [address] MCHC (RBC) [Mass/Vol] 31.1 g/dL Normal 30.5-36.0 [facility] Comment on above: Order Comment: Speci men Type: BLOOD SPECIMEN Performed By: #### 5 8410-2 ####[facility]ATORYCLIA [id number] [address] MCV (RBC) [Entitic vol] 90.4 fL Normal 80.0-100.0 [facility] Comment on above: Order Comment: Speci men Type: BLOOD SPECIMEN Performed By: #### 5 8410-2 ####[facility]ATORYCLIA [id number] [address] Nucleated RBC (Bld) [#/Vol] 10*3/uL Normal <0.01 [facility] Comment on above: Order Comment: Speci men Type: BLOOD SPECIMEN Performed By: #### 5 8410-2 ####[facility]ATORYCLIA [id number] [address] Platelet mean volume (Bld) [Entitic vol] 10.5 fL Normal 9.0-12.7 [facility] Comment on above: Order Comment: Speci men Type: BLOOD SPECIMEN Performed By: #### 5 8410-2 ####[facility]ATORYCLIA [id number] [address] Platelets (Bld) [#/Vol] 224 10*3/uL Normal 150-400 [facility] Comment on above: Order Comment: Speci men Type: BLOOD SPECIMEN Performed By: #### 5 8410-2 ####[facility] LABORATORYCLIA [id number] [address] RBC (Bld) [#/Vol] 4.38 10*6/uL Normal 4.20-6.00 [facility] Comment on above: Order Comment: Speci men Type: BLOOD SPECIMEN Performed By: #### 5 8410-2 ####[facility]ATORYCLIA [id number] [address] OF [facility] WBC (Bld) [#/Vol] 9.66 10*3/uL Normal 3.70-11.00 [facility] Comment on above: Order Comment: Speci men Type: BLOOD SPECIMEN Performed By: #### 5 8410-2 ####[facility]ATORYCLIA [id number] [address] CONSULT PROGon 06-05-2021 CONSULT PROG Normal [facility] Gas and Carbon monoxide pane l (BldV)on 06-05-2021 Base excess Calc (BldV) [Moles/Vol] 1.8 mmol/L Normal 0-2 [facility] Comment on above: Order Comment: Speci men Type: VENOUS BLOOD SPECIMEN Performed By: #### 2 4344-4 ####[facility]ATORYCLIA [id number] [address] Body temperature 100.4 [degF] Normal [facility] Comment on above: Order Comment: Speci men Type: VENOUS BLOOD SPECIMEN Performed By: #### 2 4344-4 ####[facility]ATORYCLIA [id number] [address] CALCIUM IONIZED, PH CORRECTED 1.21 mmol/L Normal 1.08-1.30 [facility] Comment on above: Order Comment: Speci men Type: VENOUS BLOOD SPECIMEN Performed By: #### 2 4344-4 ####[facility]ATORYCLIA [id number] [address] Calcium.ionized (BldV) [Mass/Vol] 1.19 mmol/L Normal 1.08-1.30 [facility] Comment on above: Order Comment: Speci men Type: VENOUS BLOOD SPECIMEN Performed By: #### 2 4344-4 ####[facility]ATORYCLIA [id number] [address] Carboxyhemoglobin (BldV) [Mass fraction] 1.0 % Normal 0.0-2.0 [facility] Comment on above: Order Comment: Speci men Type: VENOUS BLOOD SPECIMEN Result Comment: Carb oxyhemoglobin Reference Range for Smokers: 2.0-8.0% Performed By: #### 2 4344-4 ####[facility]ATORYCLIA [id number] [address] CO2 (BldV) [Partial pressure] 41 mm[Hg] Low 42-55 [facility] Comment on above: Order Comment: Speci men Type: VENOUS BLOOD SPECIMEN Performed By: #### 2 4344-4 ####[facility]ATORYCLIA [id number] [address] CO2 [Moles/Vol] 23.4 mmol/L Low 25-29 [facility] Comment on above: Order Comment: Speci men Type: VENOUS BLOOD SPECIMEN Performed By: #### 2 4344-4 ####[facility]ATORYCLIA [id number] [address] CO2 adjusted to patient's actual temperature (BldV) [Partial pressure] 43 mmHg Normal 42-55 [facility] Comment on above: Order Comment: Speci men Type: VENOUS BLOOD SPECIMEN Performed By: #### 2 4344-4 ####[facility]ATORYCLIA [id number] [address] Glucose [Mass/Vol] 101 mg/dL Normal 60-105 [facility] Comment on above: Order Comment: Speci men Type: VENOUS BLOOD SPECIMEN Performed By: #### 2 4344-4 ####[facility]ATORYCLIA [id number] [place], [place] [id number] [place] [address] [place] HCO3 (Bld) [Moles/Vol] 26.0 mmol/L Normal 24-28 [facility] Comment on above: Order Comment: Speci men Type: VENOUS BLOOD SPECIMEN Performed By: #### 2 4344-4 ####[facility] LABORATORYCLIA [id number] [address] [place] Hematocrit (Bld) [Volume fraction] 38.4 % Low 39.0-51.0 [facility] Comment on above: Order Comment: Speci men Type: VENOUS BLOOD SPECIMEN Performed By: #### 2 4344-4 ####[facility]ATORYCLIA [id number] [address] OF [facility] [place] Hemoglobin (Bld) [Mass/Vol] 12.5 g/dL Low 13.0-17.0 [facility] Comment on above: Order Comment: Speci men Type: VENOUS BLOOD SPECIMEN Performed By: #### 2 4344-4 ####[facility]ATORYCLIA [id number] [address] STATES [place] [facility] Methemoglobin (Bld) [Mass fraction] % Normal 0.0-1.5 [facility] Comment on above: Order Comment: Speci men Type: VENOUS BLOOD SPECIMEN Performed By: #### 2 4344-4 ####[facility]ATORYCLIA [id number] [address] [place] O2 THERAPY Ventilator Normal [facility] Comment on above: Order Comment: Speci men Type: VENOUS BLOOD SPECIMEN Performed By: #### 2 4344-4 ####[facility]ATORYCLIA [id number] [address] Oxygen (BldV) [Partial pressure] 44 mm[Hg] Normal 35-45 [facility] Comment on above: Order Comment: Speci men Type: VENOUS BLOOD SPECIMEN Performed By: #### 2 4344-4 ####[facility] LABORATORYCLIA [id number] [address] Oxygen adjusted to patient's actual temperature (BldV) [Partial pressure] 46.8 mmHg High 35-45 [facility] Comment on above: Order Comment: Speci men Type: VENOUS BLOOD SPECIMEN Performed By: #### 2 4344-4 ####[facility] LABORATORYCLIA [id number] [address] Oxygen saturation in Blood 76.5 % Normal 60-85 [facility] Comment on above: Order Comment: Speci men Type: VENOUS BLOOD SPECIMEN Performed By: #### 2 4344-4 ####[facility]ATORYCLIA [id number] [address] Oxyhemoglobin (BldV) [Mass fraction] 75 % Normal 60-85 [facility] Comment on above: Order Comment: Speci men Type: VENOUS BLOOD SPECIMEN Performed By: #### 2 4344-4 ####[facility]ATORYCLIA [id number] [address] pH (BldV) 7.42 [pH] Normal 7.32-7.42 [facility] Comment on above: Order Comment: Speci men Type: VENOUS BLOOD SPECIMEN Performed By: #### 2 4344-4 ####[facility]ATORYCLIA [id number] [address] pH adjusted to patient's actual temperature (BldV) 7.40 Normal 7.32-7.42 [facility] Comment on above: Order Comment: Speci men Type: VENOUS BLOOD SPECIMEN Performed By: #### 2 4344-4 ####[facility]ATORYCLIA [id number] [address] [place] Potassium [Moles/Vol] 3.7 mmol/L Normal 3.5-5.0 [facility] Comment on above: Order Comment: Speci men Type: VENOUS BLOOD SPECIMEN Performed By: #### 2 4344-4 ####[facility]ORYCLIA [id number] [address] Sodium [Moles/Vol] 141 mmol/L Normal 136-144 [facility] Comment on above: Order Comment: Speci men Type: VENOUS BLOOD SPECIMEN Performed By: #### 2 4344-4 ####[facility]ORATORYCLIA [id number] [address] [place] Magnesium SerPl-mCncon 06-05 Magnesium [Mass/Vol] 2.3 mg/dL Normal 1.7-2.3 [facility] Comment on above: Order Comment: Speci men Type: BLOOD SPECIMEN Performed By: #### 1 9123-9, 27338-3, 2777-1 ####[facility]ORATORYCLIA [id number] [address] Phosphate SerPl-mCncon 06-05 Phosphate [Mass/Vol] 2.9 mg/dL Normal 2.7-4.8 [facility] Comment on above: Order Comment: Speci men Type: BLOOD SPECIMEN Performed By: #### 1 9123-9, 48888-5, 2777-1 ####[facility]ORATORYCLIA [id number] [address] OF [facility] Vancomycin random [Mass/Vol] on 06-05-2021 Vancomycin [Mass/Vol] 23.2 ug/mL High 10.0-20.0 [facility] Comment on above: Order Comment: Speci men Type: BLOOD SPECIMEN Result Comment: Refe rence ranges and high/low indicator flags are provided as general guidelines only. The treating physician must determine appropriate target levels/dosing based on the specific clinical situation. Performed By: #### 4 091-5 ####[facility]ORATORYCLIA [id number] [place] [address] [place] (1,3)-I-L-FCSSJApp 2 (1,3) B-D GLUCAN <31 Normal <60 [facility] Comment on above: Order Comment: Speci men Type: BLOOD SPECIMEN Performed By: #### B DGLUC ####[facility] LABCLIA [id number] [place] [address] [place] (1,3) B-D GLUCAN, QUAL Negative Normal NEGAT [facility] Comment on above: Order Comment: Speci men Type: BLOOD SPECIMEN Result Comment: Cert ain fungi, such as the genus Cryptococcus which produces very low levels of (1,3)-nbfs-D-uwzvdl, may not result in serum (1,3)-nwte-H-olzata sufficiently elevated so as to be detected by the assay. Infections with fungi of the order Mucorales such as Absidia, Mucor and Rhizopus which are not known to produce (1,3)-hybb-V-mvhakn, are also observed to yield low serum (1,3)-tpgo-R-scxixi titers.In addition, the yeast phase of Blastomyces dermatitidis produces little (1,3)-rvdn-A-sqfahl and may not be detected by the assay. Performed By: #### B DGLUC ####[facility] REFER[facility] LABCLIA [id number] [place] [address] [place] ALLIED HEALTHon 06-04-2021 ALLIED HEALTH Normal [facility] ALLIED HEALTH Normal [facility] ARTERIAL BLOOD GASESon 06-04 Base excess Calc (Bld) [Moles/Vol] 3 mmol/L High 0-2 [facility] Comment on above: Order Comment: Speci men Type: ARTERIAL BLOOD SPECIMEN Performed By: #### A LLBG ####[facility]ORATORYCLIA [id number] [address] [place] Body temperature 98.06 [degF] Normal [facility] Comment on above: Order Comment: Speci men Type: ARTERIAL BLOOD SPECIMEN Performed By: #### A LLBG ####[facility]ATORYCLIA [id number] [address] [place] CALCIUM IONIZED, PH CORRECTED 1.19 mmol/L Normal 1.08-1.30 [facility] Comment on above: Order Comment: Speci men Type: ARTERIAL BLOOD SPECIMEN Performed By: #### A LLBG ####[facility]ATORYCLIA [id number] [address] OF [facility] Calcium.ionized (BldV) [Mass/Vol] 1.14 mmol/L Normal 1.08-1.30 [facility] Comment on above: Order Comment: Speci men Type: ARTERIAL BLOOD SPECIMEN Performed By: #### A LLBG ####[facility]ATORYCLIA [id number] [address] OF [facility] Carboxyhemoglobin (BldA) [Mass fraction] 1.2 % Normal 0.0-2.0 [facility] Comment on above: Order Comment: Speci men Type: ARTERIAL BLOOD SPECIMEN Result Comment: Carb oxyhemoglobin Reference Range for Smokers: 2.0-8.0% Performed By: #### A LLBG ####[facility]ATORYCLIA [id number] [address] CO2 (Bld) [Partial pressure] 35 mm Hg Low 36-46 [facility] Comment on above: Order Comment: Speci men Type: ARTERIAL BLOOD SPECIMEN Performed By: #### A LLBG ####[facility]ATORYCLIA [id number] [address] CO2 [Moles/Vol] 23.2 mmol/L Normal 22-28 [facility] Comment on above: Order Comment: Speci men Type: ARTERIAL BLOOD SPECIMEN Performed By: #### A LLBG ####[facility]ATORYCLIA [id number] [address] CO2 adjusted to patient's actual temperature (Bld) [Partial pressure] 34 mmHg Low 36-46 [facility] Comment on above: Order Comment: Speci men Type: ARTERIAL BLOOD SPECIMEN Performed By: #### A LLBG ####[facility]ATORYCLIA [id number] [address] Glucose [Mass/Vol] 115 mg/dL High 60-105 [facility] Comment on above: Order Comment: Speci men Type: ARTERIAL BLOOD SPECIMEN Performed By: #### A LLBG ####[facility]ATORYCLIA [id number] [address] [place] HCO3 (Bld) [Moles/Vol] 26 mmol/L Normal 22-26 [facility] Comment on above: Order Comment: Speci men Type: ARTERIAL BLOOD SPECIMEN Performed By: #### A LLBG ####[facility]ATORYCLIA [id number] [address] [place] Hematocrit (Bld) [Volume fraction] 35.3 % Low 39.0-51.0 [facility] Comment on above: Order Comment: Speci men Type: ARTERIAL BLOOD SPECIMEN Performed By: #### A LLBG ####[facility]ATORYCLIA [id number] [address] [place] Hemoglobin (Bld) [Mass/Vol] 11.5 g/dL Low 13.0-17.0 [facility] Comment on above: Order Comment: Speci men Type: ARTERIAL BLOOD SPECIMEN Performed By: #### A LLBG ####[facility]ORYCLIA [id number] [address] Methemoglobin (Bld) [Mass fraction] % Normal 0.0-1.5 [facility] Comment on above: Order Comment: Speci men Type: ARTERIAL BLOOD SPECIMEN Performed By: #### A LLBG ####[facility]ATORYCLIA [id number] [address] [place] O2 THERAPY Ventilator Normal [facility] Comment on above: Order Comment: Speci men Type: ARTERIAL BLOOD SPECIMEN Performed By: #### A LLBG ####[facility]ATORYCLIA [id number] [address] [place] Oxygen (Bld) [Partial pressure] 66 mm Hg Low 85-95 [facility] Comment on above: Order Comment: Speci men Type: ARTERIAL BLOOD SPECIMEN Performed By: #### A LLBG ####[facility]ATORYCLIA [id number] [address] [place] Oxygen adjusted to patient's actual temperature (Bld) [Partial pressure] 64.3 mmHg Low 85-95 [facility] Comment on above: Order Comment: Speci men Type: ARTERIAL BLOOD SPECIMEN Performed By: #### A LLBG ####[facility]ATORYCLIA [id number] [address] OXYGEN SATURATION, ARTERIAL 95 % Normal 95-98 [facility] Comment on above: Order Comment: Speci men Type: ARTERIAL BLOOD SPECIMEN Performed By: #### A LLBG ####[facility]ATORYCLIA [id number] [address] Oxyhemoglobin (BldA) [Mass fraction] 93 % Low 95-98 [facility] Comment on above: Order Comment: Speci men Type: ARTERIAL BLOOD SPECIMEN Performed By: #### A LLBG ####[facility]ATORYCLIA [id number] [address] pH (Bld) 7.49 [pH] High 7.35-7.45 [facility] Comment on above: Order Comment: Speci men Type: ARTERIAL BLOOD SPECIMEN Performed By: #### A LLBG ####[facility]ATORYCLIA [id number] [address] pH adjusted to patient's actual temperature (Bld) 7.49 High 7.35-7.45 [facility] Comment on above: Order Comment: Speci men Type: ARTERIAL BLOOD SPECIMEN Performed By: #### A LLBG ####[facility]ATORYCLIA [id number] [address] Potassium [Moles/Vol] 2.8 mmol/L Low 3.5-5.0 [facility] Comment on above: Order Comment: Speci men Type: ARTERIAL BLOOD SPECIMEN Performed By: #### A LLBG ####[facility]ATORYCLIA [id number] [address] Bas Metab 2000 Pnl SerPlon 0 06-04-2021 Sodium [Moles/Vol] 143 mmol/L Normal 136-144 [facility] Comment on above: Order Comment: Speci men Type: BLOOD SPECIMEN Performed By: #### 2 777-1, , ####[facility]ATORYCLIA [id number] [address] Order Comment: Speci men Type: ARTERIAL BLOOD SPECIMEN Performed By: #### A LLBG ####[facility]ORATORYCLIA [id number] [address] Basic metabolic 2000 panelon 06-04-2021 Anion gap [Moles/Vol] 11 mmol/L Normal 9-18 [facility] Comment on above: Order Comment: Speci men Type: BLOOD SPECIMEN Performed By: #### 2 777-1, , ####[facility]ATORYCLIA [id number] [address] Calcium [Mass/Vol] 8.5 mg/dL Normal 8.5-10.2 [facility] Comment on above: Order Comment: Speci men Type: BLOOD SPECIMEN Performed By: #### 2 777-1, , ####[facility]ATORYCLIA [id number] [address] Chloride [Moles/Vol] 107 mmol/L High 97-105 [facility] Comment on above: Order Comment: Speci men Type: BLOOD SPECIMEN Performed By: #### 2 777-1, , ####[facility]ORATORYCLIA [id number] [address] STATES OF [facility] CO2 [Moles/Vol] 25 mmol/L Normal 22-30 [facility] Comment on above: Order Comment: Speci men Type: BLOOD SPECIMEN Performed By: #### 2 777-1, , ####[facility]ATORYCLIA [id number] [address] [place] Creatinine [Mass/Vol] 0.77 mg/dL Normal 0.73-1.22 [facility] Comment on above: Order Comment: Speci men Type: BLOOD SPECIMEN Performed By: #### 2 777-1, 56696-5, ####[facility] LABORATORYCLIA [id number] [place] [address] [place] GFR/1.73 sq M.predicted MDRD (S/P/Bld) [Vol rate/Area] mL/min/{1.73_m2} Normal [facility] Comment on [...] GFR. Performed By: #### 2 777-1, , ####[facility]IA [id number] [place] [id number] [place] Glucose [Mass/Vol] 107 mg/dL High 74-99 [facility] Comment on above: Order Comment: [facility] Type: BLOOD SPECIMEN Result Comment: The [place] Diabetes Association (ADA) provides guidance for cutoff [...] Standards of Medical Care in Diabetes 2016, [place] [employer]. Diabetes Care. 2016.39(Suppl 1). Performed By: #### 2 777-1, , ####[facility] LABORATORYCLIA [id number] [address] Potassium [Moles/Vol] 3.1 mmol/L Low 3.7-5.1 [facility] Comment on above: Order Comment: Speci men Type: BLOOD SPECIMEN Performed By: #### 2 777-1, , ####[facility] LABORATORYCLIA [id number] [address] Urea nitrogen [Mass/Vol] 19 mg/dL Normal 9-24 [facility] Comment on above: Order Comment: Speci men Type: BLOOD SPECIMEN Performed By: #### 2 777-1, , ####[facility]ATORYCLIA [id number] [address] CBC panel Auto (Bld)on 06-04 Erythrocyte distribution width (RBC) [Ratio] 15.8 % High 11.5-15.0 [facility] Comment on above: Order Comment: Speci men Type: BLOOD SPECIMEN Performed By: #### 5 8410-2 ####[facility]ORATORYCLIA [id number] [address] Hematocrit (Bld) [Volume fraction] 36.9 % Low 39.0-51.0 [facility] Comment on above: Order Comment: Speci men Type: BLOOD SPECIMEN Performed By: #### 5 8410-2 ####[facility]ATORYCLIA [id number] [address] Hemoglobin (Bld) [Mass/Vol] 11.2 g/dL Low 13.0-17.0 [facility] Comment on above: Order Comment: Speci men Type: BLOOD SPECIMEN Performed By: #### 5 8410-2 ####[facility] LABORATORYCLIA [id number] [address] OF [facility] MCH (RBC) [Entitic mass] 27.3 pg Normal 26.0-34.0 [facility] Comment on above: Order Comment: Speci men Type: BLOOD SPECIMEN Performed By: #### 5 8410-2 ####[facility]ATORYCLIA [id number] [address] MCHC (RBC) [Mass/Vol] 30.4 g/dL Low 30.5-36.0 [facility] Comment on above: Order Comment: Speci men Type: BLOOD SPECIMEN Performed By: #### 5 8410-2 ####[facility] LABORATORYCLIA [id number] [address] MCV (RBC) [Entitic vol] 89.8 fL Normal 80.0-100.0 [facility] Comment on above: Order Comment: Speci men Type: BLOOD SPECIMEN Performed By: #### 5 8410-2 ####[facility]ATORYCLIA [id number] [address] Nucleated RBC (Bld) [#/Vol] 10*3/uL Normal <0.01 [facility] Comment on above: Order Comment: Speci men Type: BLOOD SPECIMEN Performed By: #### 5 8410-2 ####[facility]ATORYCLIA [id number] [address] Platelet mean volume (Bld) [Entitic vol] 10.7 fL Normal 9.0-12.7 [facility] Comment on above: Order Comment: Speci men Type: BLOOD SPECIMEN Performed By: #### 5 8410-2 ####[facility]ATORYCLIA [id number] [address] Platelets (Bld) [#/Vol] 174 10*3/uL Normal 150-400 [facility] Comment on above: Order Comment: Speci men Type: BLOOD SPECIMEN Performed By: #### 5 8410-2 ####[facility]ATORYCLIA [id number] [address] RBC (Bld) [#/Vol] 4.11 10*6/uL Low 4.20-6.00 [facility] Comment on above: Order Comment: Speci men Type: BLOOD SPECIMEN Performed By: #### 5 8410-2 ####[facility] LAB[facility]ATORYCLIA [id number] [address] OF [facility] WBC (Bld) [#/Vol] 8.29 10*3/uL Normal 3.70-11.00 [facility] Comment on above: Order Comment: Speci men Type: BLOOD SPECIMEN Performed By: #### 5 8410-2 ####[facility]ATORYCLIA [id number] [address] CONSULT PROGon 06-04-2021 CONSULT PROG Normal [facility] CT BRAIN WO IVCONon 06-04-19 CT BRAIN WO IVCON Normal [facility] CT CHEST W IVCON PEon 2021 CT CHEST W IVCON PE Normal [facility] Magnesium SerPl-mCncon 06-04 Magnesium [Mass/Vol] 2.2 mg/dL Normal 1.7-2.3 [facility] Comment on above: Order Comment: Speci men Type: BLOOD SPECIMEN Performed By: #### 2 777-1, 26728-4, 29841-6 ####[facility] LABORATORYCLIA [id number] [address] NT-proBNP SerPl-mCncon 06-04 Natriuretic peptide.B prohormone N-Terminal [Mass/Vol] 229 pg/mL High <125 [facility] Comment on above: Order Comment: Speci men Type: BLOOD SPECIMEN Performed By: #### 3 3762-6, 4091-5 ####[facility]ATORYCLIA [id number] [address] Phosphate SerPl-mCncon 06-04 Phosphate [Mass/Vol] 2.0 mg/dL Low 2.7-4.8 [facility] Comment on above: Order Comment: Speci men Type: BLOOD SPECIMEN Performed By: #### 2 777-1, 86341-0, 91575-3 ####[facility]ORATORYCLIA [id number] [address] Vancomycin random [Mass/Vol] on 06-04-2021 Vancomycin [Mass/Vol] 35.2 ug/mL High 10.0-20.0 [facility] Comment on above: Order Comment: Speci men Type: BLOOD SPECIMEN Result Comment: Refe rence ranges and high/low indicator flags are provided as general guidelines only. The treating physician must determine appropriate target levels/dosing based on the specific clinical situation. Performed By: #### 3 3762-6, 4091-5 ####[facility]ORATORYCLIA [id number] [address] XR ABDOMEN 1V SUPINEon 06-04 XR ABDOMEN 1V SUPINE Normal [facility] ALLIED HEALTHon 06-03-2021 ALLIED HEALTH Normal [facility] ARTERIAL BLOOD GASESon 06-03 Base excess Calc (Bld) [Moles/Vol] 5 mmol/L High 0-2 [facility] Comment on above: Order Comment: Speci men Type: ARTERIAL BLOOD SPECIMEN Performed By: #### A LLBG ####[facility]ORATORYCLIA [id number] [address] Body temperature 99.5 [degF] Normal [facility] Comment on above: Order Comment: Speci men Type: ARTERIAL BLOOD SPECIMEN Performed By: #### A LLBG ####[facility]ORATORYCLIA [id number] [address] CALCIUM IONIZED, PH CORRECTED 1.18 mmol/L Normal 1.08-1.30 [facility] Comment on above: Order Comment: Speci men Type: ARTERIAL BLOOD SPECIMEN Performed By: #### A LLBG ####[facility]ATORYCLIA [id number] [address] Calcium.ionized (BldV) [Mass/Vol] 1.16 mmol/L Normal 1.08-1.30 [facility] Comment on above: Order Comment: Speci men Type: ARTERIAL BLOOD SPECIMEN Performed By: #### A LLBG ####[facility]ORYCLIA [id number] [address] Carboxyhemoglobin (BldA) [Mass fraction] 1.2 % Normal 0.0-2.0 [facility] Comment on above: Order Comment: Speci men Type: ARTERIAL BLOOD SPECIMEN Result Comment: Carb oxyhemoglobin Reference Range for Smokers: 2.0-8.0% Performed By: #### A LLBG ####[facility]ORYCLIA [id number] [address] CO2 (Bld) [Partial pressure] 45 mm Hg Normal 36-46 [facility] Comment on above: Order Comment: Speci men Type: ARTERIAL BLOOD SPECIMEN Performed By: #### A LLBG ####[facility]ORYCLIA [id number] [address] CO2 [Moles/Vol] 26.9 mmol/L Normal 22-28 [facility] Comment on above: Order Comment: Speci men Type: ARTERIAL BLOOD SPECIMEN Performed By: #### A LLBG ####[facility]ORYCLIA [id number] [address] CO2 adjusted to patient's actual temperature (Bld) [Partial pressure] 47 mmHg High 36-46 [facility] Comment on above: Order Comment: Speci men Type: ARTERIAL BLOOD SPECIMEN Performed By: #### A LLBG ####[facility]ATORYCLIA [id number] [address] [place] Glucose [Mass/Vol] 141 mg/dL High 60-105 [facility] Comment on above: Order Comment: Speci men Type: ARTERIAL BLOOD SPECIMEN Performed By: #### A LLBG ####[facility]ORYCLIA [id number] [address] HCO3 (Bld) [Moles/Vol] 30 mmol/L High 22-26 [facility] Comment on above: Order Comment: Speci men Type: ARTERIAL BLOOD SPECIMEN Performed By: #### A LLBG ####[facility]ATORYCLIA [id number] [address] Hematocrit (Bld) [Volume fraction] 35.8 % Low 39.0-51.0 [facility] Comment on above: Order Comment: Speci men Type: ARTERIAL BLOOD SPECIMEN Performed By: #### A LLBG ####[facility]ATORYCLIA [id number] [address] Hemoglobin (Bld) [Mass/Vol] 11.6 g/dL Low 13.0-17.0 [facility] Comment on above: Order Comment: Speci men Type: ARTERIAL BLOOD SPECIMEN Performed By: #### A LLBG ####[facility]ORYCLIA [id number] [address] Methemoglobin (Bld) [Mass fraction] % Normal 0.0-1.5 [facility] Comment on above: Order Comment: Speci men Type: ARTERIAL BLOOD SPECIMEN Performed By: #### A LLBG ####[facility]ATORYCLIA [id number] [address] O2 THERAPY Ventilator Normal [facility] Comment on above: Order Comment: Speci men Type: ARTERIAL BLOOD SPECIMEN Performed By: #### A LLBG ####[facility]ORYCLIA [id number] [address] Oxygen (Bld) [Partial pressure] 69 mm Hg Low 85-95 [facility] Comment on above: Order Comment: Speci men Type: ARTERIAL BLOOD SPECIMEN Performed By: #### A LLBG ####[facility]ORYCLIA [id number] [address] Oxygen adjusted to patient's actual temperature (Bld) [Partial pressure] 70.8 mmHg Low 85-95 [facility] Comment on above: Order Comment: Speci men Type: ARTERIAL BLOOD SPECIMEN Performed By: #### A LLBG ####[facility]ATORYCLIA [id number] [address] OXYGEN SATURATION, ARTERIAL 94 % Low 95-98 [facility] Comment on above: Order Comment: Speci men Type: ARTERIAL BLOOD SPECIMEN Performed By: #### A LLBG ####[facility]ORYCLIA [id number] [address] Oxyhemoglobin (BldA) [Mass fraction] 93 % Low 95-98 [facility] Comment on above: Order Comment: Speci men Type: ARTERIAL BLOOD SPECIMEN Performed By: #### A LLBG ####[facility]ORYCLIA [id number] [address] [place] pH (Bld) 7.43 [pH] Normal 7.35-7.45 [facility] Comment on above: Order Comment: Speci men Type: ARTERIAL BLOOD SPECIMEN Performed By: #### A LLBG ####[facility]ORYCLIA [id number] [address] pH adjusted to patient's actual temperature (Bld) 7.43 Normal 7.35-7.45 [facility] Comment on above: Order Comment: Speci men Type: ARTERIAL BLOOD SPECIMEN Performed By: #### A LLBG ####[facility]ORYCLIA [id number] [address] STATES OF [facility] Potassium [Moles/Vol] 3.1 mmol/L Low 3.5-5.0 [facility] Comment on above: Order Comment: Speci men Type: ARTERIAL BLOOD SPECIMEN Performed By: #### A LLBG ####[facility]ORYCLIA [id number] [address] [place] Sodium [Moles/Vol] 145 mmol/L High 136-144 [facility] Comment on above: Order Comment: Speci men Type: ARTERIAL BLOOD SPECIMEN Performed By: #### A LLBG ####[facility]ATORYCLIA [id number] [address] [place] ASPERGILLUS GALACTOMANNAN SE [...] is suspected. Performed By: #### A SGALS ####[facility] LABCLIA [id number] [facility] [address] OF [facility] Galactomannan Ag IA Qn <0.50 Normal [facility] Comment on above: Order Comment: Speci men Type: BLOOD SPECIMEN Result Comment: Inde x Values are Interpreted as Follows:Negative specimens <0.50Positive specimens >=0.50 Performed By: #### A SGALS ####[facility] REFER[facility] LABCLIA [id number] [facility] [place] [id number] [facility] Basic metabolic 2000 panelon 06-03-2021 Anion gap [Moles/Vol] 8 mmol/L Low 9-18 [facility] Comment on above: Order Comment: Speci men Type: BLOOD SPECIMEN Performed By: #### 1 9123-9, 2777-1, 20643-2 ####[facility]ORATORYCLIA [id number] [address] STATES OF [facility] Calcium [Mass/Vol] 8.0 mg/dL Low 8.5-10.2 [facility] Comment on above: Order Comment: Speci men Type: BLOOD SPECIMEN Performed By: #### 1 9123-9, 2777-1, 11832-0 ####[facility]ORATORYCLIA [id number] [address] STATES OF [facility] Chloride [Moles/Vol] 110 mmol/L High 97-105 [facility] Comment on above: Order Comment: Speci men Type: BLOOD SPECIMEN Performed By: #### 1 9123-9, 2777-1, 35368-3 ####[facility]ORATORYCLIA [id number] [address] CO2 [Moles/Vol] 28 mmol/L Normal 22-30 [facility] Comment on above: Order Comment: Speci men Type: BLOOD SPECIMEN Performed By: #### 1 9123-9, 2777-1, 06889-4 ####[facility]ATORYCLIA [id number] [address] STATES OF [facility] Creatinine [Mass/Vol] 0.75 mg/dL Normal 0.73-1.22 [facility] Comment on above: Order Comment: Speci men Type: BLOOD SPECIMEN Performed By: #### 1 9123-9, 2777-, 78534-5 ####[facility]ORATORYCLIA [id number] [address] STATES [facility] GFR/1.73 sq M.predicted MDRD (S/P/Bld) [Vol rate/Area] mL/min/{1.73_m2} Normal [facility] Comment on [...] GFR. Performed By: #### 1 9123-9, 2777-1, 56203-6 ####[facility]ORATORYCLIA [id number] [address] [place] Glucose [Mass/Vol] 141 mg/dL High 74-99 [facility] Comment on above: Order Comment: Speci men Type: BLOOD SPECIMEN Result Comment: The [place] Diabetes Association (ADA) provides guidance for cutoff [...] Standards of Medical Care in Diabetes 2016, [place] Diabetes Association. Diabetes Care. 2016.39(Suppl 1). Performed By: #### 1 9123-9, 2777-, 61764-1 ####[facility] LABORATORYCLIA [id number] [address] STATES OF [facility] Potassium [Moles/Vol] 3.3 mmol/L Low 3.7-5.1 [facility] Comment on above: Order Comment: Speci men Type: BLOOD SPECIMEN Performed By: #### 1 9123-9, 2777, 46868-1 ####[facility]ATORYCLIA [id number] [address] Sodium [Moles/Vol] 146 mmol/L High 136-144 [facility] Comment on above: Order Comment: Speci men Type: BLOOD SPECIMEN Performed By: #### 1 9123-9, 2777, 36445-8 ####[facility]ORATORYCLIA [id number] [address] Urea nitrogen [Mass/Vol] 10 mg/dL Normal 9-24 [facility] Comment on above: Order Comment: Speci men Type: BLOOD SPECIMEN Performed By: #### 1 9123-9, 2777-, 66248-5 ####[facility] LABORATORYCLIA [id number] [address] OF [facility] CASE MANAGEMon 06-03-2021 CASE MANAGEM Normal [facility] CBC panel Auto (Bld)on 06-03 Erythrocyte distribution width (RBC) [Ratio] 15.6 % High 11.5-15.0 [facility] Comment on above: Order Comment: Speci men Type: BLOOD SPECIMEN Performed By: #### 5 8410-2 ####[facility]ATORYCLIA [id number] [address] Hematocrit (Bld) [Volume fraction] 36.9 % Low 39.0-51.0 [facility] Comment on above: Order Comment: Speci men Type: BLOOD SPECIMEN Performed By: #### 5 8410-2 ####[facility]ATORYCLIA [id number] [address] Hemoglobin (Bld) [Mass/Vol] 11.1 g/dL Low 13.0-17.0 [facility] Comment on above: Order Comment: Speci men Type: BLOOD SPECIMEN Performed By: #### 5 8410-2 ####[facility]ATORYCLIA [id number] [address] MCH (RBC) [Entitic mass] 27.0 pg Normal 26.0-34.0 [facility] Comment on above: Order Comment: Speci men Type: BLOOD SPECIMEN Performed By: #### 5 8410-2 ####[facility]ATORYCLIA [id number] [address] MCHC (RBC) [Mass/Vol] 30.1 g/dL Low 30.5-36.0 [facility] Comment on above: Order Comment: Speci men Type: BLOOD SPECIMEN Performed By: #### 5 8410-2 ####[facility]ATORYCLIA [id number] [address] MCV (RBC) [Entitic vol] 89.8 fL Normal 80.0-100.0 [facility] Comment on above: Order Comment: Speci men Type: BLOOD SPECIMEN Performed By: #### 5 8410-2 ####[facility]ATORYCLIA [id number] [address] Nucleated RBC (Bld) [#/Vol] 10*3/uL Normal <0.01 [facility] Comment on above: Order Comment: Speci men Type: BLOOD SPECIMEN Performed By: #### 5 8410-2 ####[facility]ATORYCLIA [id number] [address] Platelet mean volume (Bld) [Entitic vol] 10.5 fL Normal 9.0-12.7 [facility] Comment on above: Order Comment: Speci men Type: BLOOD SPECIMEN Performed By: #### 5 8410-2 ####[facility]ATORYCLIA [id number] [address] [place] Platelets (Bld) [#/Vol] 196 10*3/uL Normal 150-400 [facility] Comment on above: Order Comment: Speci men Type: BLOOD SPECIMEN Performed By: #### 5 8410-2 ####[facility]ATORYCLIA [id number] [address] RBC (Bld) [#/Vol] 4.11 10*6/uL Low 4.20-6.00 [facility] Comment on above: Order Comment: Speci men Type: BLOOD SPECIMEN Performed By: #### 5 8410-2 ####[facility]ATORYCLIA [id number] [address] WBC (Bld) [#/Vol] 8.18 10*3/uL Normal 3.70-11.00 [facility] Comment on above: Order Comment: Speci men Type: BLOOD SPECIMEN Performed By: #### 5 8410-2 ####[facility]ORATORYCLIA [id number] [address] OF [facility] CONSULTon 06-03-2021 CONSULT Normal [facility] CONSULT PROGon 06-03-2021 CONSULT PROG Normal [facility] Gas and Carbon monoxide pane l (BldV)on 06-03-2021 Base excess Calc (BldV) [Moles/Vol] 1.4 mmol/L Normal 0-2 [facility] Comment on above: Order Comment: Speci men Type: VENOUS BLOOD SPECIMEN Performed By: #### 2 4344-4 ####[facility] LABORATORYCLIA [id number] [place] [address] Body temperature 98.42 [degF] Normal [facility] Comment on above: Order Comment: Speci men Type: VENOUS BLOOD SPECIMEN Performed By: #### 2 4344-4 ####[facility]ATORYCLIA [id number] [address] CALCIUM IONIZED, PH CORRECTED 1.09 mmol/L Normal 1.08-1.30 [facility] Comment on above: Order Comment: Speci men Type: VENOUS BLOOD SPECIMEN Performed By: #### 2 4344-4 ####[facility]ATORYCLIA [id number] [address] Calcium.ionized (BldV) [Mass/Vol] 1.12 mmol/L Normal 1.08-1.30 [facility] Comment on above: Order Comment: Speci men Type: VENOUS BLOOD SPECIMEN Performed By: #### 2 4344-4 ####[facility]ATORYCLIA [id number] [address] Carboxyhemoglobin (BldV) [Mass fraction] 1.7 % Normal 0.0-2.0 [facility] Comment on above: Order Comment: Speci men Type: VENOUS BLOOD SPECIMEN Result Comment: Carb oxyhemoglobin Reference Range for Smokers: 2.0-8.0% Performed By: #### 2 4344-4 ####[facility]ATORYCLIA [id number] [address] CO2 (BldV) [Partial pressure] 50 mm[Hg] Normal 42-55 [facility] Comment on above: Order Comment: Speci men Type: VENOUS BLOOD SPECIMEN Performed By: #### 2 4344-4 ####[facility]ATORYCLIA [id number] [address] CO2 [Moles/Vol] 24.9 mmol/L Low 25-29 [facility] Comment on above: Order Comment: Speci men Type: VENOUS BLOOD SPECIMEN Performed By: #### 2 4344-4 ####[facility]ATORYCLIA [id number] [address] CO2 adjusted to patient's actual temperature (BldV) [Partial pressure] 50 mmHg Normal 42-55 [facility] Comment on above: Order Comment: Speci men Type: VENOUS BLOOD SPECIMEN Performed By: #### 2 4344-4 ####[facility]ATORYCLIA [id number] [place], [place] [id number] [place] [address] [place] FIO2 30 % Normal [facility] Comment on above: Order Comment: Speci men Type: VENOUS BLOOD SPECIMEN Performed By: #### 2 4344-4 ####[facility] LABORATORYCLIA [id number] [address] Glucose [Mass/Vol] 191 mg/dL High 60-105 [facility] Comment on above: Order Comment: Speci men Type: VENOUS BLOOD SPECIMEN Performed By: #### 2 4344-4 ####[facility]ORYCLIA [id number] [address] HCO3 (Bld) [Moles/Vol] 27.1 mmol/L Normal 24-28 [facility] Comment on above: Order Comment: Speci men Type: VENOUS BLOOD SPECIMEN Performed By: #### 2 4344-4 ####[facility]ORYCLIA [id number] [address] Hematocrit (Bld) [Volume fraction] 36.2 % Low 39.0-51.0 [facility] Comment on above: Order Comment: Speci men Type: VENOUS BLOOD SPECIMEN Performed By: #### 2 4344-4 ####[facility]ORYCLIA [id number] [address] Hemoglobin (Bld) [Mass/Vol] 11.8 g/dL Low 13.0-17.0 [facility] Comment on above: Order Comment: Speci men Type: VENOUS BLOOD SPECIMEN Performed By: #### 2 4344-4 ####[facility]ORYCLIA [id number] [address] INHALED TIDAL VOLUME (ML) 530 Normal [facility] Comment on above: Order Comment: Speci men Type: VENOUS BLOOD SPECIMEN Performed By: #### 2 4344-4 ####[facility]ORATORYCLIA [id number] [place] [address] [facility] [place] Methemoglobin (Bld) [Mass fraction] % Normal 0.0-1.5 [facility] Comment on above: Order Comment: Speci men Type: VENOUS BLOOD SPECIMEN Performed By: #### 2 4344-4 ####[facility]ORYCLIA [id number] [place] [address] [facility] [place] O2 THERAPY Ventilator Normal [facility] Comment on above: Order Comment: Speci men Type: VENOUS BLOOD SPECIMEN Performed By: #### 2 4344-4 ####[facility]ATORYCLIA [id number] [place], [place] [id number] [place] [address] [facility] [place] Oxygen (BldV) [Partial pressure] 69 mm[Hg] High 35-45 [facility] Comment on above: Order Comment: Speci men Type: VENOUS BLOOD SPECIMEN Performed By: #### 2 4344-4 ####[facility]ORATORYCLIA [id number] [place], [place] [id number] [place] [address] [facility] [place] Oxygen adjusted to patient's actual temperature (BldV) [Partial pressure] 68.8 mmHg High 35-45 [facility] [facility] Comment on above: Order Comment: Speci men Type: VENOUS BLOOD SPECIMEN Performed By: #### 2 4344-4 ####[facility]ORYCLIA [id number] [place], [place] [id number] [place] [address] [place] Oxygen saturation in Blood 92.4 % High 60-85 [facility] Comment on above: Order Comment: Speci men Type: VENOUS BLOOD SPECIMEN Performed By: #### 2 4344-4 ####[facility]ORYCLIA [id number] [place], [place] [address] [place] [address] [place] Oxyhemoglobin (BldV) [Mass fraction] 90 % High 60-85 [facility] Comment on above: Order Comment: Speci men Type: VENOUS BLOOD SPECIMEN Performed By: #### 2 4344-4 ####[facility]ORYCLIA [id number] [address] PEEP/CPAP 8 cmH2O Normal [facility] Comment on above: Order Comment: Speci men Type: VENOUS BLOOD SPECIMEN Performed By: #### 2 4344-4 ####[facility] [id number] [address] pH (BldV) 7.35 [pH] Normal 7.32-7.42 [facility] Comment on above: Order Comment: Speci men Type: VENOUS BLOOD SPECIMEN Performed By: #### 2 4344-4 ####[facility]ORYCLIA [id number] [address] pH adjusted to patient's actual temperature (BldV) 7.35 Normal 7.32-7.42 [facility] Comment on above: Order Comment: Speci men Type: VENOUS BLOOD SPECIMEN Performed By: #### 2 4344-4 ####[facility] [id number] [address] Potassium [Moles/Vol] 3.6 mmol/L Normal 3.5-5.0 [facility] Comment on above: Order Comment: Speci men Type: VENOUS BLOOD SPECIMEN Performed By: #### 2 4344-4 ####[facility]CLIA [id number] [address] SET VENTILATOR RESPIRATORY RATE (BPM) 18 BPM Normal [facility] Comment on above: Order Comment: Speci men Type: VENOUS BLOOD SPECIMEN Performed By: #### 2 4344-4 ####[facility] [id number] [address] Sodium [Moles/Vol] 141 mmol/L Normal 136-144 [facility] Comment on above: Order Comment: Speci men Type: VENOUS BLOOD SPECIMEN Performed By: #### 2 4344-4 ####[facility]ORYCLIA [id number] [address] HIV 1+2 Ab IA Qlon 01-28-202 2 HIV 1 and 2 Ab IA.rapid Nom Normal [facility] Comment on above: Order Comment: Speci men Type: BLOOD SPECIMEN Result Comment: Test not indicated. Performed By: #### 3 1201-7, TOXMG ####[facility]ATORYCLIA [id number] [place] [address] [place] HIV 1+2 Ab+HIV1 p24 Ag IA Ql Non-Reactive Normal Nonreactive [facility] Comment on above: Order Comment: Speci men Type: BLOOD SPECIMEN Result Comment: [place] Rev. Code 3701.243(E): This information has been [...] 1201-7, TOXMG ####[facility]ORYCLIA [id number] [address] HIVINT Normal [facility] Comment on above: Order Comment: Speci men Type: BLOOD SPECIMEN Result Comment: No e vidence of HIV-1 or HIV-2 infection. Should recent infection be suspected, repeat testing may be considered 2-3 weeks after this draw. Performed By: #### 3 1201-7, TOXMG ####[facility]ATORYCLIA [id number] [address] [place] Magnesium SerPl-mCncon 06-03 Magnesium [Mass/Vol] 1.9 mg/dL Normal 1.7-2.3 [facility] Comment on above: Order Comment: Speci men Type: BLOOD SPECIMEN Performed By: #### 1 9123-9, 2777-1, 54629-2 ####[facility]ORYCLIA [id number] [place] [address] [place] NUTRITIONon 06-03-2021 NUTRITION Normal [facility] Phosphate SerPl-mCncon 06-03 Phosphate [Mass/Vol] 1.9 mg/dL Low 2.7-4.8 [facility] Comment on above: Order Comment: Speci men Type: BLOOD SPECIMEN Performed By: #### 1 9123-9, 2777-1, 25487-1 ####[facility]ATORYCLIA [id number] [address] TOXOPLASMOSIS IGM AND IGG AB on 06-03-2021 TOXO IGG QUAL Negative Normal Negative [facility] Comment on above: Order Comment: Speci men Type: BLOOD SPECIMEN Result Comment: No s erological evidence of past exposure to Toxoplasma gondii. Cannot exclude recent infection if the specimen collected within 3-4 weeks after infection.Negative <6.4 IU/mLEquivocal 6.4-9.9 IU/mLPositive >=10.0 IU/mL Performed By: #### 3 1201-7, TOXMG ####[facility]ORYCLIA [id number] [address] TOXO IGM QUAL Negative Normal Negative [facility] Comment on above: Order Comment: Speci men Type: BLOOD SPECIMEN Result Comment: No s erological evidence of recent exposure to Toxoplasma gondii.Negative <0.9 IndexEquivocal 0.9-0.99 IndexPositive >=1.0 Index Performed By: #### 3 1201-7, TOXMG ####[facility]ORYCLIA [id number] [address] [place] US DVT LOWER BILon US DVT LOWER RAINER Normal [facility] XR CHEST 1V FRONTALon 2021 XR CHEST 1V FRONTAL Normal [facility] ARTERIAL BLOOD GASESon 06-02 Base excess Calc (Bld) [Moles/Vol] 2 mmol/L Normal 0-2 [facility] Comment on above: Order Comment: Speci men Type: ARTERIAL BLOOD SPECIMEN Performed By: #### A LLBG ####[facility]ORYCLIA [id number] [address] Body temperature 99.32 [degF] Normal [facility] Comment on above: Order Comment: Speci men Type: ARTERIAL BLOOD SPECIMEN Performed By: #### A LLBG ####[facility]ORYCLIA [id number] [address] CALCIUM IONIZED, PH CORRECTED 1.15 mmol/L Normal 1.08-1.30 [facility] Comment on above: Order Comment: Speci men Type: ARTERIAL BLOOD SPECIMEN Performed By: #### A LLBG ####[facility]ORYCLIA [id number] [address] Calcium.ionized (BldV) [Mass/Vol] 1.13 mmol/L Normal 1.08-1.30 [facility] Comment on above: Order Comment: Speci men Type: ARTERIAL BLOOD SPECIMEN Performed By: #### A LLBG ####[facility]ORYCLIA [id number] [address] Carboxyhemoglobin (BldA) [Mass fraction] 1.4 % Normal 0.0-2.0 [facility] Comment on above: Order Comment: Speci men Type: ARTERIAL BLOOD SPECIMEN Result Comment: Carb oxyhemoglobin Reference Range for Smokers: 2.0-8.0% Performed By: #### A LLBG ####[facility]ORYCLIA [id number] [address] CO2 (Bld) [Partial pressure] 39 mm Hg Normal 36-46 [facility] Comment on above: Order Comment: Speci men Type: ARTERIAL BLOOD SPECIMEN Performed By: #### A LLBG ####[facility]ORYCLIA [id number] [address] [place] CO2 [Moles/Vol] 23.4 mmol/L Normal 22-28 [facility] Comment on above: Order Comment: Speci men Type: ARTERIAL BLOOD SPECIMEN Performed By: #### A LLBG ####[facility]ORYCLIA [id number] [address] CO2 adjusted to patient's actual temperature (Bld) [Partial pressure] 40 mmHg Normal 36-46 [facility] Comment on above: Order Comment: Speci men Type: ARTERIAL BLOOD SPECIMEN Performed By: #### A LLBG ####[facility]CLIA [id number] [address] Glucose [Mass/Vol] 156 mg/dL High 60-105 [facility] Comment on above: Order Comment: Speci men Type: ARTERIAL BLOOD SPECIMEN Performed By: #### A LLBG ####[facility]CLIA [id number] [address] HCO3 (Bld) [Moles/Vol] 26 mmol/L Normal 22-26 [facility] Comment on above: Order Comment: Speci men Type: ARTERIAL BLOOD SPECIMEN Performed By: #### A LLBG ####[facility]ORYCLIA [id number] [address] Hematocrit (Bld) [Volume fraction] 33.9 % Low 39.0-51.0 [facility] Comment on above: Order Comment: Speci men Type: ARTERIAL BLOOD SPECIMEN Performed By: #### A LLBG ####[facility]ORYCLIA [id number] [address] OF [facility] Hemoglobin (Bld) [Mass/Vol] 11.0 g/dL Low 13.0-17.0 [facility] Comment on above: Order Comment: Speci men Type: ARTERIAL BLOOD SPECIMEN Performed By: #### A LLBG ####[facility]CLIA [id number] [address] Methemoglobin (Bld) [Mass fraction] % Normal 0.0-1.5 [facility] Comment on above: Order Comment: Speci men Type: ARTERIAL BLOOD SPECIMEN Performed By: #### A LLBG ####[facility]CLIA [id number] [address] O2 THERAPY Ventilator Normal [facility] Comment on above: Order Comment: Speci men Type: ARTERIAL BLOOD SPECIMEN Performed By: #### A LLBG ####[facility]ORYCLIA [id number] [place], [place] [address] [place] [address] Oxygen (Bld) [Partial pressure] 70 mm Hg Low 85-95 [facility] Comment on above: Order Comment: Speci men Type: ARTERIAL BLOOD SPECIMEN Performed By: #### A LLBG ####[facility]CLIA [id number] [address] Oxygen adjusted to patient's actual temperature (Bld) [Partial pressure] 72.2 mmHg Low 85-95 [facility] Comment on above: Order Comment: Speci men Type: ARTERIAL BLOOD SPECIMEN Performed By: #### A LLBG ####[facility]ORYCLIA [id number] [address] OXYGEN SATURATION, ARTERIAL 96 % Normal 95-98 [facility] Comment on above: Order Comment: Speci men Type: ARTERIAL BLOOD SPECIMEN Performed By: #### A LLBG ####[facility]ORYCLIA [id number] [address] Oxyhemoglobin (BldA) [Mass fraction] 94 % Low 95-98 [facility] Comment on above: Order Comment: Speci men Type: ARTERIAL BLOOD SPECIMEN Performed By: #### A LLBG ####[facility]ORYCLIA [id number] [address] [place] pH (Bld) 7.43 [pH] Normal 7.35-7.45 [facility] Comment on above: Order Comment: Speci men Type: ARTERIAL BLOOD SPECIMEN Performed By: #### A LLBG ####[facility]ORYCLIA [id number] [address] pH adjusted to patient's actual temperature (Bld) 7.42 Normal 7.35-7.45 [facility] Comment on above: Order Comment: Speci men Type: ARTERIAL BLOOD SPECIMEN Performed By: #### A LLBG ####[facility]ORYCLIA [id number] [address] [place] Potassium [Moles/Vol] 2.6 mmol/L Low 3.5-5.0 [facility] Comment on above: Order Comment: Speci men Type: ARTERIAL BLOOD SPECIMEN Performed By: #### A LLBG ####[facility]ORYCLIA [id number] [address] STATES OF [facility] Sodium [Moles/Vol] 142 mmol/L Normal 136-144 [facility] Comment on above: Order Comment: Speci men Type: ARTERIAL BLOOD SPECIMEN Performed By: #### A LLBG ####[facility]ORYCLIA [id number] [address] [place] Ammonia Plas-sCncon 06-02-19 22 Ammonia (P) [Moles/Vol] 20 umol/L Normal 16-60 [facility] Comment on above: Order Comment: Speci men Type: BLOOD SPECIMEN Performed By: #### 1 6362-6 ####[facility]ORYCLIA [id number] [address] [place] Bacteria CSF Culton 06-02-19 22 Bacteria identified Cx Nom (CSF) CULTURE, CSF: No growth 14 days GRAM STAIN: No organisms seen Rare Polymorphonuclear leukocytes Gram stain performed on cytospun specimen. Normal [facility] Comment on above: Performed By: #### 6 06-4 ####[facility]ORYCLIA [id number] [address] [place] Basic metabolic 2000 panelon 06-02-2021 Anion gap [Moles/Vol] 10 mmol/L Normal 9-18 [facility] Comment on above: Order Comment: Speci men Type: BLOOD SPECIMEN Performed By: #### 2 4321-2, , 2776-05 ####[facility]ATORYCLIA [id number] [address] STATES OF [facility] Calcium [Mass/Vol] 8.1 mg/dL Low 8.5-10.2 [facility] Comment on above: Order Comment: Speci men Type: BLOOD SPECIMEN Performed By: #### 2 4321-2, , 2776 ####[facility]ATORYCLIA [id number] [place], [place] [address] [place] [address] [place] Chloride [Moles/Vol] 108 mmol/L High 97-105 [facility] Comment on above: Order Comment: Speci men Type: BLOOD SPECIMEN Performed By: #### 2 4321-2, , 2776-05 ####[facility]ORYCLIA [id number] [address] [place] CO2 [Moles/Vol] 24 mmol/L Normal 22-30 [facility] Comment on above: Order Comment: Speci men Type: BLOOD SPECIMEN Performed By: #### 2 1-2, , 2776-05 ####[facility]ORYCLIA [id number] [address] [place] Creatinine [Mass/Vol] 0.78 mg/dL Normal 0.73-1.22 [facility] Comment on above: Order Comment: Speci men Type: BLOOD SPECIMEN Performed By: #### 2 1-2, , 2776-05 ####[facility]ORYCLIA [id number] [address] [place] GFR/1.73 sq M.predicted MDRD (S/P/Bld) [Vol rate/Area] mL/min/{1.73_m2} Normal [facility] Comment on [...] , 2776-05 ####[facility]ATORYCLIA [id number] [place] [address] [place] Glucose [Mass/Vol] 162 mg/dL High 74-99 [facility] Comment on above: Order Comment: Speci men Type: BLOOD SPECIMEN Result Comment: The [place] Diabetes Association (ADA) provides guidance for cutoff [...] Standards of Medical Care in Diabetes 2016, [place] [employer]. Diabetes Care. 2016.39(Suppl 1). Performed By: #### 2 1-2, , 2776-05 ####[facility]ORYCLIA [id number] [address] [place] Potassium [Moles/Vol] 2.7 mmol/L Low 3.7-5.1 [facility] Comment on above: Order Comment: Speci men Type: BLOOD SPECIMEN Performed By: #### 2 1-2, , 2776-05 ####[facility]ORYCLIA [id number] [address] [place] Sodium [Moles/Vol] 142 mmol/L Normal 136-144 [facility] Comment on above: Order Comment: Speci men Type: BLOOD SPECIMEN Performed By: #### 2 4321-2, , 2776-05 ####[facility]ORYCLIA [id number] [address] [place] Urea nitrogen [Mass/Vol] 12 mg/dL Normal 9-24 [facility] Comment on above: Order Comment: Speci men Type: BLOOD SPECIMEN Performed By: #### 2 1-2, , 2776-05 ####[facility]ORYCLIA [id number] [address] CBC panel Auto (Bld)on 06-02 Erythrocyte distribution width (RBC) [Ratio] 15.0 % Normal 11.5-15.0 [facility] Comment on above: Order Comment: Speci men Type: BLOOD SPECIMEN Performed By: #### 5 8410-2 ####[facility]ORYCLIA [id number] [address] Hematocrit (Bld) [Volume fraction] 34.3 % Low 39.0-51.0 [facility] Comment on above: Order Comment: Speci men Type: BLOOD SPECIMEN Performed By: #### 5 8410-2 ####[facility]ORYCLIA [id number] [address] Hemoglobin (Bld) [Mass/Vol] 10.3 g/dL Low 13.0-17.0 [facility] Comment on above: Order Comment: Speci men Type: BLOOD SPECIMEN Performed By: #### 5 8410-2 ####[facility]ORYCLIA [id number] [address] MCH (RBC) [Entitic mass] 27.0 pg Normal 26.0-34.0 [facility] Comment on above: Order Comment: Speci men Type: BLOOD SPECIMEN Performed By: #### 5 8410-2 ####[facility]ORYCLIA [id number] [address] MCHC (RBC) [Mass/Vol] 30.0 g/dL Low 30.5-36.0 [facility] Comment on above: Order Comment: Speci men Type: BLOOD SPECIMEN Performed By: #### 5 8410-2 ####[facility]ORYCLIA [id number] [address] MCV (RBC) [Entitic vol] 90.0 fL Normal 80.0-100.0 [facility] Comment on above: Order Comment: Speci men Type: BLOOD SPECIMEN Performed By: #### 5 8410-2 ####[facility]ORYCLIA [id number] [address] Nucleated RBC (Bld) [#/Vol] 10*3/uL Normal <0.01 [facility] Comment on above: Order Comment: Speci men Type: BLOOD SPECIMEN Performed By: #### 5 8410-2 ####[facility]ORYCLIA [id number] [address] Platelet mean volume (Bld) [Entitic vol] 10.2 fL Normal 9.0-12.7 [facility] Comment on above: Order Comment: Speci men Type: BLOOD SPECIMEN Performed By: #### 5 8410-2 ####[facility]ORYCLIA [id number] [address] Platelets (Bld) [#/Vol] 194 10*3/uL Normal 150-400 [facility] Comment on above: Order Comment: Speci men Type: BLOOD SPECIMEN Performed By: #### 5 8410-2 ####[facility]ORYCLIA [id number] [address] RBC (Bld) [#/Vol] 3.81 10*6/uL Low 4.20-6.00 [facility] Comment on above: Order Comment: Speci men Type: BLOOD SPECIMEN Performed By: #### 5 8410-2 ####[facility]ORYCLIA [id number] [address] WBC (Bld) [#/Vol] 9.22 10*3/uL Normal 3.70-11.00 [facility] Comment on above: Order Comment: Speci men Type: BLOOD SPECIMEN Performed By: #### 5 8410-2 ####[facility]ORYCLIA [id number] [address] CONSULT PROGon 06-02-2021 CONSULT PROG Normal [facility] CSF MANUAL DIFFon 06-02-2021 DIF TTL, CSF 25 cells counted Normal [facility] Comment on above: Order Comment: Speci men Type: CEREBROSPINAL FLUID Performed By: #### 3 4563-7, [id number], [id number] ####[facility]CL[facility] [id number] [address] [place] LYMPH%, CSF 4 % Low 50-90 [facility] Comment on above: Order Comment: Speci men Type: CEREBROSPINAL FLUID Performed By: #### 3 4563-7, [id number], [id number] ####[facility]CLIA [id number] [address] [place] MACRO%, CSF 4 % High <1 [facility] Comment on above: Order Comment: Speci men Type: CEREBROSPINAL FLUID Performed By: #### 3 4563-7, [id number], [id number] ####[facility]CLIA [id number] [address] [place] MONO%, CSF 20 % Normal 10-50 [facility] Comment on above: Order Comment: Speci men Type: CEREBROSPINAL FLUID Performed By: #### 3 4563-7, [id number], [id number] ####[facility]CLIA [id number] [address] [place] NEUT%, CSF 72 % High 0-3 [facility] Comment on above: Order Comment: Speci men Type: CEREBROSPINAL FLUID Performed By: #### 3 4563-7, [id number], [id number] ####[facility]CLIA [id number] [address] CSF PATHOLOGIST INTERP (LAB REFLEX ORDER-NO BILL)on 06-02-2021 CSF STAFF REVIEW Negative Normal [facility] Comment on above: Order Comment: Speci men Type: CEREBROSPINAL FLUID Performed By: #### 3 4563-7, [id number], [id number] ####[facility]CLIA [id number] [address] Pathologist name Reviewed by Amador Stevens MD [facility] Comment on above: Order Comment: Speci men Type: CEREBROSPINAL FLUID Performed By: #### 3 4563-7, [id number], [id number] ####[facility]CLIA [id number] [address] Cell count panel (CSF)on Clarity (CSF) Clear Normal Clear [facility] Comment on above: Order Comment: Speci men Type: CEREBROSPINAL FLUID Performed By: #### 3 4563-7, [id number], [id number] ####[facility]ORYCLIA [id number] [address] Clarity (Unsp spec) Not Indicated Normal Clear [facility] Comment on above: Order Comment: Speci men Type: CEREBROSPINAL FLUID Performed By: #### 3 4563-7, [id number], [id number] ####[facility]CLIA [id number] [address] Color (CSF) Colorless Normal Colorless [facility] Comment on above: Order Comment: Speci men Type: CEREBROSPINAL FLUID Performed By: #### 3 4563-7, ZGC6109, [id number] ####[facility]ORYCLIA [id number] [address] Color (Spun CSF) Not Indicated Normal Colorless [facility] Comment on above: Order Comment: Speci men Type: CEREBROSPINAL FLUID Performed By: #### 3 4563-7, [id number], [id number] ####[facility]CLIA [id number] [address] CSF TUBE NUMBER [employer] Normal [facility] Comment on above: Order Comment: Speci men Type: CEREBROSPINAL FLUID Performed By: #### 3 4563-7, [id number], [id number] ####[facility]CLIA [id number] [address] RBC Manual cnt (CSF) [#/Vol] 117 cells/uL High 0-5 [facility] Comment on above: Order Comment: Speci men Type: CEREBROSPINAL FLUID Performed By: #### 3 4563-7, [id number], [id number] ####[facility]IA [id number] [address] WBC Manual cnt (CSF) [#/Vol] 1 cells/uL Normal 0-5 [facility] Comment on above: Order Comment: Speci men Type: CEREBROSPINAL FLUID Performed By: #### 3 4563-7, [id number], [id number] ####[facility]CLIA [id number] [address] Glucose CSF-mCncon 2 Glucose (CSF) [Mass/Vol] 82 mg/dL High 40-70 [facility] Comment on above: Order Comment: Speci men Type: CEREBROSPINAL FLUID Result Comment: Lumb ar CSF glucose values of healthy patients are approximately 60% of the plasma values and must always be compared with a concurrently measured plasma value for adequate clinical interpretation.References: 1. Glucose HK (GLUC3) [package insert V 12.0 Israeli]. [employer], [place], [place]. September 2015. 2. Michelle Moore, Loki HGarfield (2015). Chapter 7: Glucose and Lactate. F. Irina rose al.(eds.), Cerebrospinal Fluid in Clinical Neurology. Story: [employer]. Performed By: #### 2 342-4 ####[facility]ORYCLIA [id number] [address] HEPATIC FUNCTION PNLon 06-02 Albumin [Mass/Vol] 3.2 g/dL Low 3.9-4.9 [facility] Comment on above: Order Comment: Speci men Type: BLOOD SPECIMEN Performed By: #### H FP, 33736-2 ####[facility]ORYCLIA [id number] [address] ALP [Catalytic activity/Vol] 67 U/L Normal 38-113 [facility] Comment on above: Order Comment: Speci men Type: BLOOD SPECIMEN Performed By: #### [place], [address]01-7 ####[facility]ORYCLIA [id number] [address] [place] ALT With P-5'-P [Catalytic activity/Vol] 16 U/L Normal 10-54 [facility] Comment on above: Order Comment: Speci men Type: BLOOD SPECIMEN Performed By: #### [place], [address]-8 ####[facility] [id number] [address] AST With P-5'-P [Catalytic activity/Vol] 25 U/L Normal 14-40 [facility] Comment on above: Order Comment: Speci men Type: BLOOD SPECIMEN Performed By: #### [place], [address]-9 ####[facility]CLIA [id number] [address] Bilirubin [Mass/Vol] 0.2 mg/dL Normal 0.2-1.3 [facility] Comment on above: Order Comment: Speci men Type: BLOOD SPECIMEN Performed By: #### [place] [place], [address]-6 ####[facility]ATORYCLIA [id number] [address] Bilirubin.conjugated [Mass/Vol] mg/dL Normal <0.2 [facility] Comment on above: Order Comment: Speci men Type: BLOOD SPECIMEN Performed By: #### [place], [address]-7 ####[facility]ATORYCLIA [id number] [address] Protein [Mass/Vol] 5.8 g/dL Low 6.3-8.0 [facility] Comment on above: Order Comment: Speci men Type: BLOOD SPECIMEN Performed By: #### [place], [address]-4 ####[facility]ATORYCLIA [id number] [address] MRI BRAIN WO/W IVCONon 06-02 MRI BRAIN WO/W IVCON Normal [facility] Magnesium SerPl-mCncon 06-02 Magnesium [Mass/Vol] 2.0 mg/dL Normal 1.7-2.3 [facility] Comment on above: Order Comment: Speci men Type: BLOOD SPECIMEN Performed By: #### 2 4321-2, 00831-9, 2777-1 ####[facility]ATORYCLIA [id number] [address] NT[facility] Natriuretic peptide.B prohormone N-Terminal [Mass/Vol] 296 pg/mL High <125 [facility] Comment on above: Order Comment: Speci men Type: BLOOD SPECIMEN Performed By: #### [place], [address]-0 ####[facility]ORATORYCLIA [id number] [address] OF [facility] POTASSIUM BLDon 06-02-2021 Potassium [Moles/Vol] 3.2 mmol/L Low 3.7-5.1 [facility] Comment on above: Order Comment: Speci men Type: BLOOD SPECIMEN Performed By: #### K 1 ####[facility]ATORYCLIA [id number] [address] Phosphate [facility] 06-02 Phosphate [Mass/Vol] 2.1 mg/dL Low 2.7-4.8 [facility] Comment on above: Order Comment: Speci men Type: BLOOD SPECIMEN Performed By: #### 2 4321-2, 84247-3, 2776-05 ####[facility]ATORYCLIA [id number] [address] OF [facility] Vancomycin random [Mass/Vol] on 06-02-2021 Vancomycin [Mass/Vol] 18.8 ug/mL Normal 10.0-20.0 [facility] Comment on above: Order Comment: Speci men Type: BLOOD SPECIMEN Result Comment: Refe rence ranges and high/low indicator flags are provided as general guidelines only. The treating physician must determine appropriate target levels/dosing based on the specific clinical situation. Performed By: #### 4 091-5 ####[facility]ORATORYCLIA [id number] [address] OF [facility] ALLIED HEALTHon 06-01-2021 ALLIED HEALTH Normal [facility] ALLIED HEALTH Normal [facility] ALLIED HEALTH Normal [facility] ARTERIAL BLOOD GASESon 06-01 Base excess Calc (Bld) [Moles/Vol] 1 mmol/L Normal 0-2 [facility] Comment on above: Order Comment: Speci men Type: ARTERIAL BLOOD SPECIMEN Performed By: #### A LLBG ####[facility]ORATORYCLIA [id number] [address] Body temperature 97.52 [degF] Normal [facility] Comment on above: Order Comment: Speci men Type: ARTERIAL BLOOD SPECIMEN Performed By: #### A LLBG ####[facility]ATORYCLIA [id number] [address] CALCIUM IONIZED, PH CORRECTED 1.13 mmol/L Normal 1.08-1.30 [facility] Comment on above: Order Comment: Speci men Type: ARTERIAL BLOOD SPECIMEN Performed By: #### A LLBG ####[facility]ORATORYCLIA [id number] [address] STATES OF [facility] Calcium.ionized (BldV) [Mass/Vol] 1.12 mmol/L Normal 1.08-1.30 [facility] Comment on above: Order Comment: Speci men Type: ARTERIAL BLOOD SPECIMEN Performed By: #### A LLBG ####[facility]ATORYCLIA [id number] [address] OF [facility] Carboxyhemoglobin (BldA) [Mass fraction] 1.6 % Normal 0.0-2.0 [facility] Comment on above: Order Comment: Speci men Type: ARTERIAL BLOOD SPECIMEN Result Comment: Carb oxyhemoglobin Reference Range for Smokers: 2.0-8.0% Performed By: #### A LLBG ####[facility]ATORYCLIA [id number] [address] CO2 (Bld) [Partial pressure] 41 mm Hg Normal 36-46 [facility] Comment on above: Order Comment: Speci men Type: ARTERIAL BLOOD SPECIMEN Performed By: #### A LLBG ####[facility]ORYCLIA [id number] [address] CO2 [Moles/Vol] 23.0 mmol/L Normal 22-28 [facility] Comment on above: Order Comment: Speci men Type: ARTERIAL BLOOD SPECIMEN Performed By: #### A LLBG ####[facility]ORYCLIA [id number] [address] CO2 adjusted to patient's actual temperature (Bld) [Partial pressure] 40 mmHg Normal 36-46 [facility] Comment on above: Order Comment: Speci men Type: ARTERIAL BLOOD SPECIMEN Performed By: #### A LLBG ####[facility]ORYCLIA [id number] [address] FIO2 40 % Normal [facility] Comment on above: Order Comment: Speci men Type: ARTERIAL BLOOD SPECIMEN Performed By: #### A LLBG ####[facility]ORYCLIA [id number] [address] Glucose [Mass/Vol] 127 mg/dL High 60-105 [facility] Comment on above: Order Comment: Speci men Type: ARTERIAL BLOOD SPECIMEN Performed By: #### A LLBG ####[facility]ORYCLIA [id number] [address] HCO3 (Bld) [Moles/Vol] 25 mmol/L Normal 22-26 [facility] Comment on above: Order Comment: Speci men Type: ARTERIAL BLOOD SPECIMEN Performed By: #### A LLBG ####[facility]ORYCLIA [id number] [address] Hematocrit (Bld) [Volume fraction] 33.7 % Low 39.0-51.0 [facility] Comment on above: Order Comment: Speci men Type: ARTERIAL BLOOD SPECIMEN Performed By: #### A LLBG ####[facility]ORYCLIA [id number] [address] OF [place] Hemoglobin (Bld) [Mass/Vol] 10.9 g/dL Low 13.0-17.0 [facility] Comment on above: Order Comment: Speci men Type: ARTERIAL BLOOD SPECIMEN Performed By: #### A LLBG ####[facility]ORYCLIA [id number] [address] INHALED TIDAL VOLUME (ML) 500 Normal [facility] Comment on above: Order Comment: Speci men Type: ARTERIAL BLOOD SPECIMEN Performed By: #### A LLBG ####[facility]ORYCLIA [id number] [address] INVASIVE VENTILATOR MODE PRVC=Pressure Regulated Volume Control Normal [facility] Comment on above: Order Comment: Speci men Type: ARTERIAL BLOOD SPECIMEN Performed By: #### A LLBG ####[facility]ORYCLIA [id number] [address] Methemoglobin (Bld) [Mass fraction] % Normal 0.0-1.5 [facility] Comment on above: Order Comment: Speci men Type: ARTERIAL BLOOD SPECIMEN Performed By: #### A LLBG ####[facility]ATORYCLIA [id number] [address] OF [place] O2 THERAPY Ventilator Normal [facility] Comment on above: Order Comment: Speci men Type: ARTERIAL BLOOD SPECIMEN Performed By: #### A LLBG ####[facility]ORYCLIA [id number] [address] OF [place] Oxygen (Bld) [Partial pressure] 64 mm Hg Low 85-95 [facility] Comment on above: Order Comment: Speci men Type: ARTERIAL BLOOD SPECIMEN Performed By: #### A LLBG ####[facility]ORYCLIA [id number] [address] Oxygen adjusted to patient's actual temperature (Bld) [Partial pressure] 61.8 mmHg Low 85-95 [facility] Comment on above: Order Comment: Speci men Type: ARTERIAL BLOOD SPECIMEN Performed By: #### A LLBG ####[facility]ATORYCLIA [id number] [place] [address] OXYGEN SATURATION, ARTERIAL 94 % Low 95-98 [facility] Comment on above: Order Comment: Speci men Type: ARTERIAL BLOOD SPECIMEN Performed By: #### A LLBG ####[facility]ORYCLIA [id number] [address] Oxyhemoglobin (BldA) [Mass fraction] 92 % Low 95-98 [facility] Comment on above: Order Comment: Speci men Type: ARTERIAL BLOOD SPECIMEN Performed By: #### A LLBG ####[facility]ORYCLIA [id number] [address] PEEP/CPAP 5 cmH2O Normal [facility] Comment on above: Order Comment: Speci men Type: ARTERIAL BLOOD SPECIMEN Performed By: #### A LLBG ####[facility]ORATORYCLIA [id number] [address] pH (Bld) 7.40 [pH] Normal 7.35-7.45 [facility] Comment on above: Order Comment: Speci men Type: ARTERIAL BLOOD SPECIMEN Performed By: #### A LLBG ####[facility] LABORATORYCLIA [id number] [address] pH adjusted to patient's actual temperature (Bld) 7.41 Normal 7.35-7.45 [facility] Comment on above: Order Comment: Speci men Type: ARTERIAL BLOOD SPECIMEN Performed By: #### A LLBG ####[facility]ORYCLIA [id number] [address] Potassium [Moles/Vol] 3.1 mmol/L Low 3.5-5.0 [facility] Comment on above: Order Comment: Speci men Type: ARTERIAL BLOOD SPECIMEN Performed By: #### A LLBG ####[facility]ATORYCLIA [id number] [address] SET VENTILATOR RESPIRATORY RATE (BPM) 18 BPM Normal [facility] Comment on above: Order Comment: Speci men Type: ARTERIAL BLOOD SPECIMEN Performed By: #### A LLBG ####[facility]ORYCLIA [id number] [address] Sodium [Moles/Vol] 141 mmol/L Normal 136-144 [facility] Comment on above: Order Comment: Speci men Type: ARTERIAL BLOOD SPECIMEN Performed By: #### A LLBG ####[facility]ORYCLIA [id number] [address] BASE DEFICIT, ARTERIAL -1.0 mmol/L Normal -2-0 [facility] Comment on above: Order Comment: Speci men Type: ARTERIAL BLOOD SPECIMEN Performed By: #### A LLBG ####[facility]ATORYCLIA [id number] [address] Body temperature 98.24 [degF] Normal [facility] Comment on above: Order Comment: Speci men Type: ARTERIAL BLOOD SPECIMEN Performed By: #### A LLBG ####[facility]ATORYCLIA [id number] [address] CALCIUM IONIZED, PH CORRECTED 1.08 mmol/L Normal 1.08-1.30 [facility] Comment on above: Order Comment: Speci men Type: ARTERIAL BLOOD SPECIMEN Performed By: #### A LLBG ####[facility]ATORYCLIA [id number] [address] Calcium.ionized (BldV) [Mass/Vol] 1.15 mmol/L Normal 1.08-1.30 [facility] Comment on above: Order Comment: Speci men Type: ARTERIAL BLOOD SPECIMEN Performed By: #### A LLBG ####[facility]ORYCLIA [id number] [address] Carboxyhemoglobin (BldA) [Mass fraction] 1.4 % Normal 0.0-2.0 [facility] Comment on above: Order Comment: Speci men Type: ARTERIAL BLOOD SPECIMEN Result Comment: Carb oxyhemoglobin Reference Range for Smokers: 2.0-8.0% Performed By: #### A LLBG ####[facility]ORYCLIA [id number] [place], [place] [id number] [place] [address] CO2 (Bld) [Partial pressure] 59 mm Hg High 36-46 [facility] Comment on above: Order Comment: Speci men Type: ARTERIAL BLOOD SPECIMEN Performed By: #### A LLBG ####[facility]ORYCLIA [id number] [place], [place] [address] [place] [address] [place] CO2 [Moles/Vol] 24.5 mmol/L Normal 22-28 [facility] Comment on above: Order Comment: Speci men Type: ARTERIAL BLOOD SPECIMEN Performed By: #### A LLBG ####[facility]ORYCLIA [id number] [address] CO2 adjusted to patient's actual temperature (Bld) [Partial pressure] 58 mmHg High 36-46 [facility] Comment on above: Order Comment: Speci men Type: ARTERIAL BLOOD SPECIMEN Performed By: #### A LLBG ####[facility]ORYCLIA [id number] [address] [place] FIO2 40 % Normal [facility] Comment on above: Order Comment: Speci men Type: ARTERIAL BLOOD SPECIMEN Performed By: #### A LLBG ####[facility]ORYCLIA [id number] [address] Glucose [Mass/Vol] 128 mg/dL High 60-105 [facility] Comment on above: Order Comment: Speci men Type: ARTERIAL BLOOD SPECIMEN Performed By: #### A LLBG ####[facility]ORYCLIA [id number] [address] HCO3 (Bld) [Moles/Vol] 26 mmol/L Normal 22-26 [facility] Comment on above: Order Comment: Speci men Type: ARTERIAL BLOOD SPECIMEN Performed By: #### A LLBG ####[facility]ORYCLIA [id number] [address] OF [place] Hematocrit (Bld) [Volume fraction] 35.6 % Low 39.0-51.0 [facility] Comment on above: Order Comment: Speci men Type: ARTERIAL BLOOD SPECIMEN Performed By: #### A LLBG ####[facility]ORYCLIA [id number] [address] Hemoglobin (Bld) [Mass/Vol] 11.5 g/dL Low 13.0-17.0 [facility] Comment on above: Order Comment: Speci men Type: ARTERIAL BLOOD SPECIMEN Performed By: #### A LLBG ####[facility]ORYCLIA [id number] [address] OF [place] INHALED TIDAL VOLUME (ML) 500 Normal [facility] Comment on above: Order Comment: Speci men Type: ARTERIAL BLOOD SPECIMEN Performed By: #### A LLBG ####[facility]ORYCLIA [id number] [address] INVASIVE VENTILATOR MODE PRVC=Pressure Regulated Volume Control [facility] Comment on above: Order Comment: Speci men Type: ARTERIAL BLOOD SPECIMEN Performed By: #### A LLBG ####[facility]ORYCLIA [id number] [address] OF [facility] Methemoglobin (Bld) [Mass fraction] % Normal 0.0-1.5 [facility] Comment on above: Order Comment: Speci men Type: ARTERIAL BLOOD SPECIMEN Performed By: #### A LLBG ####[facility]ORYCLIA [id number] [address] O2 THERAPY Ventilator Normal [facility] Comment on above: Order Comment: Speci men Type: ARTERIAL BLOOD SPECIMEN Performed By: #### A LLBG ####[facility]ORYCLIA [id number] [address] Oxygen (Bld) [Partial pressure] 88 mm Hg Normal 85-95 [facility] Comment on above: Order Comment: Speci men Type: ARTERIAL BLOOD SPECIMEN Performed By: #### A LLBG ####[facility]ORYCLIA [id number] [address] Oxygen adjusted to patient's actual temperature (Bld) [Partial pressure] 86.5 mmHg Normal 85-95 [facility] Comment on above: Order Comment: Speci men Type: ARTERIAL BLOOD SPECIMEN Performed By: #### A LLBG ####[facility]ORYCLIA [id number] [address] OXYGEN SATURATION, ARTERIAL 95 % Normal 95-98 [facility] Comment on above: Order Comment: Speci men Type: ARTERIAL BLOOD SPECIMEN Performed By: #### A LLBG ####[facility]ORYCLIA [id number] [address] Oxyhemoglobin (BldA) [Mass fraction] 93 % Low 95-98 [facility] Comment on above: Order Comment: Speci men Type: ARTERIAL BLOOD SPECIMEN Performed By: #### A LLBG ####[facility]ORYCLIA [id number] [address] PEEP/CPAP 5 cmH2O Normal [facility] Comment on above: Order Comment: Speci men Type: ARTERIAL BLOOD SPECIMEN Performed By: #### A LLBG ####[facility]ORYCLIA [id number] [address] OF [facility] pH (Bld) 7.27 [pH] Low 7.35-7.45 [facility] Comment on above: Order Comment: Speci men Type: ARTERIAL BLOOD SPECIMEN Performed By: #### A LLBG ####[facility]ORYCLIA [id number] [address] pH adjusted to patient's actual temperature (Bld) 7.28 Low 7.35-7.45 [facility] Comment on above: Order Comment: Speci men Type: ARTERIAL BLOOD SPECIMEN Performed By: #### A LLBG ####[facility]ORYCLIA [id number] [address] Potassium [Moles/Vol] 3.3 mmol/L Low 3.5-5.0 [facility] Comment on above: Order Comment: Speci men Type: ARTERIAL BLOOD SPECIMEN Performed By: #### A LLBG ####[facility]ATORYCLIA [id number] [address] SET VENTILATOR RESPIRATORY RATE (BPM) 14 BPM Normal [facility] Comment on above: Order Comment: Speci men Type: ARTERIAL BLOOD SPECIMEN Performed By: #### A LLBG ####[facility]ATORYCLIA [id number] [address] Sodium [Moles/Vol] 141 mmol/L Normal 136-144 [facility] Comment on above: Order Comment: Speci men Type: ARTERIAL BLOOD SPECIMEN Performed By: #### A LLBG ####[facility]ATORYCLIA [id number] [address] Bacteria CSF Culton 06-01-19 22 Bacteria identified Cx Nom (CSF) CULTURE, CSF: No growth 14 days GRAM STAIN: No organisms seen Rare Polymorphonuclear leukocytes Moderate Red Blood Cells Gram stain performed on cytospun specimen. Normal [facility] Comment on above: Performed By: #### 6 06-4 ####[facility]ATORYCLIA [id number] [address] Bacteria Spec Resp Culton Bacteria identified Respiratory culture Nom (Unsp spec) CULTURE, RESPIRATORY: No growth 2 days GRAM STAIN: No organisms seen No Polymorphonuclear Leukocytes Normal [facility] Comment on above: Performed By: #### 3 2355-0 ####[facility]ATORYCLIA [id number] [address] Basic metabolic 2000 panelon 06-01-2021 Anion gap [Moles/Vol] 8 mmol/L Low 9-18 [facility] Comment on above: Order Comment: Speci men Type: BLOOD SPECIMEN Performed By: #### 2 4321-2, 77994-2, 2777-1 ####[facility]ORYCLIA [id number] [address] OF [place] Calcium [Mass/Vol] 7.8 mg/dL Low 8.5-10.2 [facility] Comment on above: Order Comment: Speci men Type: BLOOD SPECIMEN Performed By: #### 2 4321-2, , 2776-05 ####[facility]ATORYCLIA [id number] [address] STATES [facility] Chloride [Moles/Vol] 109 mmol/L High 97-105 [facility] Comment on above: Order Comment: Speci men Type: BLOOD SPECIMEN Performed By: #### 2 4321-2, , 2776-05 ####[facility]ORYCLIA [id number] [address] [place] CO2 [Moles/Vol] 26 mmol/L Normal 22-30 [facility] Comment on above: Order Comment: Speci men Type: BLOOD SPECIMEN Performed By: #### 2 4321-2, , 2776-05 ####[facility]ATORYCLIA [id number] [address] STATES OF [facility] Creatinine [Mass/Vol] 0.82 mg/dL Normal 0.73-1.22 [facility] Comment on above: Order Comment: Speci men Type: BLOOD SPECIMEN Performed By: #### 2 4321-2, , 2776-05 ####[facility]ATORYCLIA [id number] [address] [place] GFR/1.73 sq M.predicted MDRD (S/P/Bld) [Vol rate/Area] mL/min/{1.73_m2} Normal [facility] Comment on [...] #### 2 4320-2, , 2776-05 ####[facility]ORATORYCLIA [id number] [place] [address] [place] Glucose [Mass/Vol] 105 mg/dL High 74-99 [facility] Comment on above: Order Comment: Speci men Type: BLOOD SPECIMEN Result Comment: The [place] [employer] (ADA) provides guidance for cutoff [...] Standards of Medical Care in Diabetes 2016, [place] [employer]. Diabetes Care. 2016.39(Suppl 1). Performed By: #### 2 4320-2, , 2776-05 ####[facility]ORATORYCLIA [id number] [place] [address] [place] Potassium [Moles/Vol] 3.8 mmol/L Normal 3.7-5.1 [facility] Comment on above: Order Comment: Speci men Type: BLOOD SPECIMEN Performed By: #### 2 4320-2, , 2776-05 ####[facility]ATORYCLIA [id number] [place] [address] [place] Sodium [Moles/Vol] 143 mmol/L Normal 136-144 [facility] Comment on above: Order Comment: Speci men Type: BLOOD SPECIMEN Performed By: #### 2 4320-2, , 2776-05 ####[facility]ATORYCLIA [id number] [place] [address] [place] Urea nitrogen [Mass/Vol] 15 mg/dL Normal 9-24 [facility] Comment on above: Order Comment: Speci men Type: BLOOD SPECIMEN Performed By: #### 2 4321-2, 59783-6, 2777-1 ####[facility]ATORYCLIA [id number] [address] CBC panel Auto (Bld)on 06-01 Erythrocyte distribution width (RBC) [Ratio] 15.4 % High 11.5-15.0 [facility] Comment on above: Order Comment: Speci men Type: BLOOD SPECIMEN Performed By: #### 5 8410-2 ####[facility]ATORYCLIA [id number] [address] Hematocrit (Bld) [Volume fraction] 38.4 % Low 39.0-51.0 [facility] Comment on above: Order Comment: Speci men Type: BLOOD SPECIMEN Performed By: #### 5 8410-2 ####[facility]ATORYCLIA [id number] [address] Hemoglobin (Bld) [Mass/Vol] 11.1 g/dL Low 13.0-17.0 [facility] Comment on above: Order Comment: Speci men Type: BLOOD SPECIMEN Performed By: #### 5 8410-2 ####[facility]ATORYCLIA [id number] [address] MCH (RBC) [Entitic mass] 26.9 pg Normal 26.0-34.0 [facility] Comment on above: Order Comment: Speci men Type: BLOOD SPECIMEN Performed By: #### 5 8410-2 ####[facility]ATORYCLIA [id number] [address] MCHC (RBC) [Mass/Vol] 28.9 g/dL Low 30.5-36.0 [facility] Comment on above: Order Comment: Speci men Type: BLOOD SPECIMEN Performed By: #### 5 8410-2 ####[facility]ATORYCLIA [id number] [address] MCV (RBC) [Entitic vol] 93.2 fL Normal 80.0-100.0 [facility] Comment on above: Order Comment: Speci men Type: BLOOD SPECIMEN Performed By: #### 5 8410-2 ####[facility]ATORYCLIA [id number] [address] Nucleated RBC (Bld) [#/Vol] 10*3/uL Normal <0.01 [facility] Comment on above: Order Comment: Speci men Type: BLOOD SPECIMEN Performed By: #### 5 8410-2 ####[facility]ATORYCLIA [id number] [address] Platelet mean volume (Bld) [Entitic vol] 10.2 fL Normal 9.0-12.7 [facility] Comment on above: Order Comment: Speci men Type: BLOOD SPECIMEN Performed By: #### 5 8410-2 ####[facility]ATORYCLIA [id number] [address] Platelets (Bld) [#/Vol] 231 10*3/uL Normal 150-400 [facility] Comment on above: Order Comment: Speci men Type: BLOOD SPECIMEN Performed By: #### 5 8410-2 ####[facility]ATORYCLIA [id number] [address] RBC (Bld) [#/Vol] 4.12 10*6/uL Low 4.20-6.00 [facility] Comment on above: Order Comment: Speci men Type: BLOOD SPECIMEN Performed By: #### 5 8410-2 ####[facility]ORATORYCLIA [id number] [address] OF [facility] WBC (Bld) [#/Vol] 10.99 10*3/uL Normal 3.70-11.00 [facility] Comment on above: Order Comment: Speci men Type: BLOOD SPECIMEN Performed By: #### 5 8410-2 ####[facility]ATORYCLIA [id number] [address] CONSULT PROGon 06-01-2021 CONSULT PROG Normal [facility] CSF MANUAL DIFFon 06-01-2021 DIF TTL, CSF 100 cells counted Normal [facility] Comment on above: Order Comment: Speci men Type: CEREBROSPINAL FLUID Performed By: #### 3 4563-7, [id number] ####[facility]ATORYCLIA [id number] [place], [place] [id number] [place] [address] LYMPH%, CSF 11 % Low 50-90 [facility] Comment on above: Order Comment: Speci men Type: CEREBROSPINAL FLUID Performed By: #### 3 4563-7, [id number] ####[facility]ORYCLIA [id number] [address] OF [facility] MONO%, CSF 10 % Normal 10-50 [facility] Comment on above: Order Comment: Speci men Type: CEREBROSPINAL FLUID Performed By: #### 3 4563-7, [id number] ####[facility]ORYCLIA [id number] [address] [place] NEUT%, CSF 79 % High 0-3 [facility] Comment on above: Order Comment: Speci men Type: CEREBROSPINAL FLUID Performed By: #### 3 4563-7, [id number] ####[facility]ORYCLIA [id number] [address] [facility] CT BRAIN WO IVCONon 06-01-19 CT BRAIN WO IVCON Normal [facility] Cell count panel (CSF)on Clarity (CSF) Clear Normal Clear [facility] Comment on above: Order Comment: Speci men Type: CEREBROSPINAL FLUID Performed By: #### 3 4563-7, [id number] ####[facility]ORYCLIA [id number] [address] Clarity (Unsp spec) Not Indicated Normal Clear [facility] Comment on above: Order Comment: Speci men Type: CEREBROSPINAL FLUID Performed By: #### 3 4563-7, [id number] ####[facility]ORYCLIA [id number] [address] Color (CSF) Colorless Normal Colorless [facility] Comment on above: Order Comment: Speci men Type: CEREBROSPINAL FLUID Performed By: #### 3 4563-7, [id number] ####[facility]ATORYCLIA [id number] [address] Color (Spun CSF) Not Indicated Normal Colorless [facility] Comment on above: Order Comment: Speci men Type: CEREBROSPINAL FLUID Performed By: #### 3 4563-7, [id number] ####[facility]ATORYCLIA [id number] [address] CSF TUBE NUMBER Sterile Container Normal [facility] Comment on above: Order Comment: Speci men Type: CEREBROSPINAL FLUID Performed By: #### 3 4563-7, [id number] ####[facility]ORYCLIA [id number] [address] RBC Manual cnt (CSF) [#/Vol] 171 cells/uL High 0-5 [facility] Comment on above: Order Comment: Speci men Type: CEREBROSPINAL FLUID Performed By: #### 3 4563-7, [id number] ####[facility]ORYCLIA [id number] [address] WBC Manual cnt (CSF) [#/Vol] 5 cells/uL Normal 0-5 [facility] Comment on above: Order Comment: Speci men Type: CEREBROSPINAL FLUID Performed By: #### 3 4563-7, [id number] ####[facility]ATORYCLIA [id number] [address] [place] FUNGAL CULTUREon 06-01-2021 FUNGAL CULTURE CULTURE, FUNGAL: No Fungus isolated after 28 days Normal [facility] Comment on above: Performed By: #### F CUL ####[facility]ORATORYCLIA [id number] [address] [place] Glucose CSF-mCncon Glucose (CSF) [Mass/Vol] 78 mg/dL High 40-70 [facility] Comment on above: Order Comment: Speci men Type: CEREBROSPINAL FLUID Result Comment: Lumb ar CSF glucose values of healthy patients are approximately 60% of the plasma values and must always be compared with a concurrently measured plasma value for adequate clinical interpretation.References: 1. Glucose HK (GLUC3) [package insert V 12.0 Israeli]. [employer], [place], [place]. September 2015. 2. Michelle Moore, Michelle Manjarrez (2015). Chapter 7: Glucose and Lactate. F. Irina rose al.(eds.), Cerebrospinal Fluid in Clinical Neurology. Story: [email or web address]. Performed By: #### 2 342-4, 2880-3 ####[facility]ORATORYCLIA [id number] [address] [place] HERPES SIMPLEX CSFon 022 HERPES SIMPLEX CSF HSV PCR SPEC SOURCE: Cerebrospinal Fluid HSV-1: Negative for Herpes Simplex Virus Type 1 by PCR HSV-2: Negative for Herpes Simplex Virus Type 2 by PCR Normal [facility] Comment on above: Performed By: #### [facility] ####[facility] REFERENCE LABCLIA [id number] [id number] [address] [place] Lactate (Bld) [Moles/Vol]on 06-01-2021 Lactate [Moles/Vol] 0.5 mmol/L Normal 0.5-2.2 [facility] Comment on above: Order Comment: Speci men Type: BLOOD SPECIMEN Performed By: #### 3 2693-4 ####[facility]ORATORYCLIA [id number] [address] [place] MENINGITIS ENCEPHALITIS BIOF IREon 06-01-2021 MENINGITIS ENCEPHALITIS BIOFIRE Negative Normal [facility] Comment on above: Order Comment: Speci men Type: CEREBROSPINAL FLUID Performed By: #### M GEBF ####[facility] [id number] [address] Magnesium SerPl-mCncon 06-01 Magnesium [Mass/Vol] 2.2 mg/dL Normal 1.7-2.3 [facility] Comment on above: Order Comment: Speci men Type: BLOOD SPECIMEN Performed By: #### 2 4321-2, 27794-0, 2776- ####[facility]ORATORYCLIA [id number] [address] Microorganism Spec Culton Microorganism identified Cx Nom (Unsp spec) CULTURE, AFB: No Acid Fast Bacilli isolated after 42 days AFB STAIN: No acid fast bacilli seen by flurochrome stain Normal [facility] Comment on above: Performed By: #### 1 1475-1 ####[facility]ORATORYCLIA [id number] [address] PROCALCITONIN (LAB)on 2021 Procalcitonin [Mass/Vol] 0.08 ng/mL Normal <0.09 [facility] Comment on above: Order Comment: Speci men Type: BLOOD SPECIMEN Result Comment: For a guided interpretation of test results, please visit the [facility] in Procalcitonin Calculator, [email or web address]. Performed By: #### P ROCAL ####[facility]ORATORYCLIA [id number] [address] Phosphate SerPl-ncon 06-01 Phosphate [Mass/Vol] 3.5 mg/dL Normal 2.7-4.8 [facility] Comment on above: Order Comment: Speci men Type: BLOOD SPECIMEN Performed By: #### 2 4321-2, 69815-2, 2776-05 ####[facility]ORATORYCLIA [id number] [address] [place] Prot CSF-mCncon 06-01-2021 Protein (CSF) [Mass/Vol] 52 mg/dL High 15-45 [facility] Comment on above: Order Comment: Speci men Type: CEREBROSPINAL FLUID Performed By: #### 2 342-4, 2880-3 ####[facility]ORATORYCLIA [id number] [address] [place] Vancomycin random [Mass/Vol] on 06-01-2021 Vancomycin [Mass/Vol] 14.6 ug/mL Normal 10.0-20.0 [facility] Comment on above: Order Comment: Speci men Type: BLOOD SPECIMEN Result Comment: Refe rence ranges and high/low indicator flags are provided as general guidelines only. The treating physician must determine appropriate target levels/dosing based on the specific clinical situation. Performed By: #### 4 091-5 ####[facility]ORATORYCLIA [id number] [address] STATES OF [facility] XR CHEST 1V FRONTALon 2021 XR CHEST 1V FRONTAL Normal [facility] XR CHEST 1V FRONTAL Normal [facility] XR NECK SOFT TISSUE 2V AP/LA Ton 06-01-2021 XR NECK SOFT TISSUE 2V AP/LAT Normal [facility] XR SKULL 2V AP/LATon 022 XR SKULL 2V AP/LAT Normal [facility] ALLIED HEALTHon 05-31-2021 ALLIED HEALTH HNO ID: [id number] Author: Christina Lynne RT(R) Service: Radiology Author Type: Technologist Type: Allied Health Filed: 05/31/2021 5:48 PM Note Text: MRI tomorrow per RN. Normal [facility] HEALTH Normal [facility] ALLIED HEALTH Normal [facility] HEALTH Normal [facility] ANES POSTPROC EVALon 022 ANES POSTPROC EVAL Normal [facility] ANES PRE-OPon 05-31-2021 ANES PRE-OP Normal [facility] BRIEF OP NOTon 05-31-2021 BRIEF OP NOT Normal [facility] Bacteria Bld Culton 05-31-19 22 Bacteria identified Cx Nom (Bld) CULTURE, BLOOD: No growth 5 days Normal [facility] Comment on above: Performed By: #### 6 00-7 ####[facility]ORATORYCLIA [id number] [address] OF [facility] Bacteria CSF Culton 05-31-19 22 Bacteria identified Cx Nom (CSF) CULTURE, CSF: No growth 14 days GRAM STAIN: No organisms seen Rare Polymorphonuclear leukocytes Rare Red Blood Cells Gram stain performed on cytospun specimen. Normal [facility] Comment on above: Performed By: #### 6 06-4 ####[facility]ORATORYCLIA [id number] [address] OF [facility] Basic metabolic 2000 panelon 05-31-2021 Anion gap [Moles/Vol] 9 mmol/L Normal 9-18 [facility] Comment on above: Order Comment: Speci men Type: BLOOD SPECIMEN Performed By: #### 2 777-1, 60928-3, ####[facility]ORYCLIA [id number] [address] [place] Calcium [Mass/Vol] 8.2 mg/dL Low 8.5-10.2 [facility] Comment on above: Order Comment: Speci men Type: BLOOD SPECIMEN Performed By: #### 2 777-1, 96777-2, ####[facility]ORYCLIA [id number] [address] STATES OF [facility] Chloride [Moles/Vol] 110 mmol/L High 97-105 [facility] Comment on above: Order Comment: Speci men Type: BLOOD SPECIMEN Performed By: #### 2 777-1, , ####[facility]ORYCLIA [id number] [address] [place] CO2 [Moles/Vol] 27 mmol/L Normal 22-30 [facility] Comment on above: Order Comment: Speci men Type: BLOOD SPECIMEN Performed By: #### 2 777-1, 93907-8, ####[facility]ORATORYCLIA [id number] [address] [place] Creatinine [Mass/Vol] 0.85 mg/dL Normal 0.73-1.22 [facility] Comment on above: Order Comment: Speci men Type: BLOOD SPECIMEN Performed By: #### 2 777-1, 03914-6, ####[facility]ATORYCLIA [id number] [place] [address] [place] GFR/1.73 sq M.predicted MDRD (S/P/Bld) [Vol rate/Area] mL/min/{1.73_m2} Normal [facility] Comment on [...] actual GFR. Performed By: #### 2 777-1, 01801-6, 44439-7 ####[facility]ORATORYCLIA [id number] [place] [address] [place] Glucose [Mass/Vol] 111 mg/dL High 74-99 [facility] Comment on above: Order Comment: Speci men Type: BLOOD SPECIMEN Result Comment: The [place] Diabetes Association (ADA) provides guidance for cutoff [...] Standards of Medical Care in Diabetes 2016, [place] Diabetes Association. Diabetes Care. 2016.39(Suppl 1). Performed By: #### 2 777-1, 32433-3, 96056-7 ####[facility]ORATORYCLIA [id number] [place] [address] [place] Potassium [Moles/Vol] 3.7 mmol/L Normal 3.7-5.1 [facility] Comment on above: Order Comment: Speci men Type: BLOOD SPECIMEN Performed By: #### 2 777-1, 33883-7, ####[facility]ORATORYCLIA [id number] [address] Sodium [Moles/Vol] 146 mmol/L High 136-144 [facility] Comment on above: Order Comment: Speci men Type: BLOOD SPECIMEN Performed By: #### 2 777-1, 41467-3, ####[facility]ATORYCLIA [id number] [address] STATES OF [facility] Urea nitrogen [Mass/Vol] 16 mg/dL Normal 9-24 [facility] Comment on above: Order Comment: Speci men Type: BLOOD SPECIMEN Performed By: #### 2 777-1, 07948-0, ####[facility]ORATORYCLIA [id number] [address] [place] CASE MGT INIT ASSESon 2021 CASE MGT INIT ASSES Normal [facility] CBC W Auto Differential pane l (Bld)on 05-31-2021 Basophils (Bld) [#/Vol] 0.04 10*3/uL Normal <0.11 [facility] Comment on above: Order Comment: Speci men Type: BLOOD SPECIMEN Performed By: #### 5 7021-8 ####[facility]ORATORYCLIA [id number] [address] Basophils/100 WBC (Bld) 0.5 % Normal [facility] Comment on above: Order Comment: Speci men Type: BLOOD SPECIMEN Performed By: #### 5 7021-8 ####[facility]ORATORYCLIA [id number] [address] Differential cell count method Nom (Bld) Auto Normal [facility] Comment on above: Order Comment: Speci men Type: BLOOD SPECIMEN Performed By: #### 5 7021-8 ####[facility]ATORYCLIA [id number] [address] Eosinophils (Bld) [#/Vol] 0.27 10*3/uL Normal <0.46 [facility] Comment on above: Order Comment: Speci men Type: BLOOD SPECIMEN Performed By: #### 5 7021-8 ####[facility]ATORYCLIA [id number] [address] Eosinophils/100 WBC (Bld) 3.3 % Normal [facility] Comment on above: Order Comment: Speci men Type: BLOOD SPECIMEN Performed By: #### 5 7021-8 ####[facility]ATORYCLIA [id number] [address] Erythrocyte distribution width (RBC) [Ratio] 15.4 % High 11.5-15.0 [facility] Comment on above: Order Comment: Speci men Type: BLOOD SPECIMEN Performed By: #### 5 7021-8 ####[facility]ATORYCLIA [id number] [address] Hematocrit (Bld) [Volume fraction] 37.9 % Low 39.0-51.0 [facility] Comment on above: Order Comment: Speci men Type: BLOOD SPECIMEN Performed By: #### 5 7021-8 ####[facility]ATORYCLIA [id number] [address] Hemoglobin (Bld) [Mass/Vol] 11.5 g/dL Low 13.0-17.0 [facility] Comment on above: Order Comment: Speci men Type: BLOOD SPECIMEN Performed By: #### 5 7021-8 ####[facility]ATORYCLIA [id number] [address] IMMATURE GRAN % 0.4 % Normal [facility] Comment on above: Order Comment: Speci men Type: BLOOD SPECIMEN Performed By: #### 5 7021-8 ####[facility]ATORYCLIA [id number] [address] IMMATURE GRAN ABS 0.03 k/uL Normal <0.10 [facility] Comment on above: Order Comment: Speci men Type: BLOOD SPECIMEN Performed By: #### 5 7021-8 ####[facility]ATORYCLIA [id number] [address] Lymphocytes (Bld) [#/Vol] 1.90 10*3/uL Normal 1.00-4.00 [facility] Comment on above: Order Comment: Speci men Type: BLOOD SPECIMEN Performed By: #### 5 7021-8 ####[facility]ORATORYCLIA [id number] [address] Lymphocytes/100 WBC (Bld) 23.0 % Normal [facility] Comment on above: Order Comment: Speci men Type: BLOOD SPECIMEN Performed By: #### 5 7021-8 ####[facility]ATORYCLIA [id number] [address] MCH (RBC) [Entitic mass] 28.0 pg Normal 26.0-34.0 [facility] Comment on above: Order Comment: Speci men Type: BLOOD SPECIMEN Performed By: #### 5 7021-8 ####[facility]ATORYCLIA [id number] [address] MCHC (RBC) [Mass/Vol] 30.3 g/dL Low 30.5-36.0 [facility] Comment on above: Order Comment: Speci men Type: BLOOD SPECIMEN Performed By: #### 5 7021-8 ####[facility]ATORYCLIA [id number] [address] MCV (RBC) [Entitic vol] 92.4 fL Normal 80.0-100.0 [facility] Comment on above: Order Comment: Speci men Type: BLOOD SPECIMEN Performed By: #### 5 7021-8 ####[facility]ORYCLIA [id number] [address] Monocytes (Bld) [#/Vol] 0.60 10*3/uL Normal <0.87 [facility] Comment on above: Order Comment: Speci men Type: BLOOD SPECIMEN Performed By: #### 5 7021-8 ####[facility]ORYCLIA [id number] [address] Monocytes/100 WBC (Bld) 7.3 % Normal [facility] Comment on above: Order Comment: Speci men Type: BLOOD SPECIMEN Performed By: #### 5 7021-8 ####[facility]ORYCLIA [id number] [address] Neutrophils (Bld) [#/Vol] 5.41 10*3/uL Normal 1.45-7.50 [facility] Comment on above: Order Comment: Speci men Type: BLOOD SPECIMEN Performed By: #### 5 7021-8 ####[facility] LABORATORYCLIA [id number] [address] Neutrophils/100 WBC (Bld) 65.5 % Normal [facility] Comment on above: Order Comment: Speci men Type: BLOOD SPECIMEN Performed By: #### 5 7021-8 ####[facility]ORYCLIA [id number] [address] Nucleated RBC (Bld) [#/Vol] 10*3/uL Normal <0.01 [facility] Comment on above: Order Comment: Speci men Type: BLOOD SPECIMEN Performed By: #### 5 7021-8 ####[facility]ORYCLIA [id number] [address] Nucleated RBC/100 WBC (Bld) [Ratio] 0.0 /100 WBC Normal 0.0 [facility] Comment on above: Order Comment: Speci men Type: BLOOD SPECIMEN Performed By: #### 5 7021-8 ####[facility]ORYCLIA [id number] [address] Platelet mean volume (Bld) [Entitic vol] 9.8 fL Normal 9.0-12.7 [facility] Comment on above: Order Comment: Speci men Type: BLOOD SPECIMEN Performed By: #### 5 7021-8 ####[facility]ORATORYCLIA [id number] [address] Platelets (Bld) [#/Vol] 251 10*3/uL Normal 150-400 [facility] Comment on above: Order Comment: Speci men Type: BLOOD SPECIMEN Performed By: #### 5 7021-8 ####[facility]ATORYCLIA [id number] [address] RBC (Bld) [#/Vol] 4.10 10*6/uL Low 4.20-6.00 [facility] Comment on above: Order Comment: Speci men Type: BLOOD SPECIMEN Performed By: #### 5 7021-8 ####[facility]ATORYCLIA [id number] [address] WBC (Bld) [#/Vol] 8.25 10*3/uL Normal 3.70-11.00 [facility] Comment on above: Order Comment: Speci men Type: BLOOD SPECIMEN Performed By: #### 5 7021-8 ####[facility]ORATORYCLIA [id number] [address] CONSULTon 05-31-2021 CONSULT Normal [facility] CONSULT Normal [facility] CONSULT Normal [facility] CT BRAIN WO IVCONon 05-31-[address] BRAIN WO IVCON Normal [facility] CT BRAIN WO IVCON Normal [facility] CT CHEST WO IVCONon 05-31-[address] CHEST WO IVCON Normal [facility] Cortis SerPl-mCncon 05-31-19 22 Cortisol [Mass/Vol] 31.0 ug/dL High AM: 5.3-22.5, PM: 3.4-16.8 [facility] Comment on above: Order Comment: Speci men Type: BLOOD SPECIMEN Result Comment: Prov ided reference range is from 6-10 AM sample collection time.Cortisol Reference Range: 6-10 AM = 4.8-19.5 ug/dL, 4-8 PM = 2.5-11.9 ug/dL Performed By: #### 2 143-6, 3016-3 ####[facility] LABORATORYCLIA [id number] [address] Cryptoc Ag Spec Ql LAon 05-08 Cryptococcus sp Ag LA Ql (Unsp spec) Negative Normal [facility] Comment on above: Performed By: #### 4 3228-6 ####[facility] LABORATORYCLIA [id number] [address] [place] HISTORY PHYSICALon 2 HISTORY PHYSICAL Normal [facility] Magnesium SerPl-ncon 05-31 Magnesium [Mass/Vol] 2.2 mg/dL Normal 1.7-2.3 [facility] Comment on above: Order Comment: Speci men Type: BLOOD SPECIMEN Performed By: #### 2 777-1, 60354-7, 40703-0 ####[facility] LABORATORYCLIA [id number] [address] [place] NURSING PROGon 05-31-2021 NURSING PROG Normal [facility] NUTRITIONon 05-31-2021 NUTRITION Normal [facility] OPERATIVE NOon 05-31-2021 OPERATIVE NO Normal [facility] Phosphate SerPl-mCncon 05-31 Phosphate [Mass/Vol] 3.3 mg/dL Normal 2.7-4.8 [facility] Comment on above: Order Comment: Speci men Type: BLOOD SPECIMEN Performed By: #### 2 777-1, 03674-1, ####[facility]ORATORYCLIA [id number] [address] STAPH AUREUS PCRon 2 S. aureus and MRSA panel MEGAN+probe (Nose) Normal Negative [facility] Comment on above: Order Comment: Speci men Type: SWAB OF INTERNAL NOSE Result Comment: Nega tive for Staphylococcus aureus by PCR.Negative for MRSA by PCR Performed By: #### S APCR ####[facility]ORATORYCLIA [id number] [address] [place] TSH SerPl-aCncon 05-31-2021 TSH Qn 0.829 m[IU]/L Normal 0.270-4.200 [facility] Comment on above: Order Comment: Speci men Type: BLOOD SPECIMEN Performed By: #### 2 143-6, 3016-3 ####[facility]ATORYCLIA [id number] [address] XR CHEST 1V FRONTALon 2021 XR CHEST 1V FRONTAL Normal [facility] XR CHEST 1V FRONTAL Normal [facility] Blood Cultureon 05-30-2021 Bacteria identified Cx Nom (Bld) Culture Result - No growth 5 days Normal [facility] Comment on above: Performed By: #### C AD #### [facility] [address] [place] [address] Bacteria identified Cx Nom (Bld) Sp. Request/Comment: - 8.2MLS Culture Result - No growth 5 days Normal [facility] Comment on above: Performed By: #### C AD #### [facility] [address] [place] [address] C-Reactive Proteinon 022 C-Reactive Protein 1.7 mg/dL High <0.9 [facility] Comment on above: Performed By: #### C RP ####[facility] [id number] [place] [id number] CNDSon 05-30-2021 [facility] HNO ID: [id number] Author: Columba Carroll PA-C Service: Hospital Medicine Author Type: Physician Pancake Professional Type: Discharge Summary Filed: 05/30/2021 12:49 PM Note Text: ----- Attestation signed by Ayaka Menjivar MD at 06/01/2021 12:53 PM Attending Note I have personally reviewed the PA/[employer]PARTMENT SUPERVISOR note. Agree with above assessment and plan. [...] Team: Attending Provider: Ayaka Menjivar MD Physician Pancake Professional: Columba Carroll PA-C Consulting: Lilo Mendoza [...] consulted. Neurology suggested empiric abx coverage for EMERGENCY CARE TECH infection Rocephin and Vancomycin was started. Tele-neuro also suggested an MRI brain be obtained prior to LP to check [employer] shunt and decrease risk of herniation in neurosurgery capable facility. Transfer to [facility] requested. Sepsis lactate was 1.3. ABG showed pO2 67.8, placed patient on 2L NC.Follow B1, B12, and RPR pending. Transitions of Care Critical Issues: - patient transferred for [facility] for management of possible EMERGENCY CARE TECH infection and herniation. LABS AND PROCEDURES PENDING [...] intravenously q 1 (more content not included)... [place] [facility] CONSULTon 05-30-2021 CONSULT HNO ID: [id number] Author: Juan Carlos Mckenzie MD Service: Infectious [...] vertebrae with counting from the craniocervical junction. Head Pumper: Swift Shift Transcribe Date/Time: May 29 2021 8:59P Dictated by : CARLOS YOUNGER MD This examination was interpreted and the report reviewed and electronically signed by: CARLOS YOUNGER MD on May 29 2021 9:14PM EST ? CT CERVICAL SPINE WO (more content not included)... Normal [facility] CONSULT HNO ID: [id number] Author: Lilo Mendoza MD Service: Neurology General Author Type: Physician Type: Consults Filed: 05/30/2021 10:56 AM Note Text: [facility] TeleNeurology Consult Note Patient seen using Teleneurology Services. Recommendations are placed in the chart. Please review. For questions after hours, when teleneurologist is not available, for JEAN: Please Page [phone] for the [facility] from 12pm to 8Am Admitting Provider/Consulted by:Hermes Roca MD Time of Note:05/30/2021 Patient Name:Andrew Sifuentes Admit Date:05/29/2021 Hospital Day:0 CC: altered mental status History of Present Illness: Andrew R Gurpreet is a 71 year old unknown handed male with limited information about past medical history including venous insufficiency s/p EVLT, hydrocepalus s/p [employer] shunt in 1987 with multiple revisions and [...] Reflexes Right Lef (more content not included)... [facility] CONSULT PROGon 05-30-2021 CONSULT PROG [facility] CONSULT PROG HNO ID: [id number] Author: Shannon Gutierres [facility] Service: Pharmacy Author Type: Pharmacist Type: Consult Progress Note Filed: 05/30/2021 2:35 PM Note Text: PHARMACY VANCOMYCIN DOSING NOTE Patient Name: Andrew Sifuentes Admission Date: 05/29/2021 Date of Consult: 05/30/2021 Time of Consult: 2:32 PM Indication: possible EMERGENCY CARE TECH infection Goal Range: 15-20 mcg/mL RECOMMENDATIONS/PLAN: Pharmacy [...] any questions, please contact inpatient pharmacy at [phone]. Age: [age] year old Allergies: ALLERGIES Allergen [...] results found for: IMANI Gutierres [facility] Normal [facility] Creatinineon 05-30-2021 Creatinine [Mass/Vol] 0.86 mg/dL Normal 0.73-1.22 [facility] Comment on above: Performed By: #### C RET1 ####[facility] Gdqthvmjdp4485 [address] eGFR- Amer. >60 Normal [facility] Comment on above: Performed By: #### C RET1 ####[facility] Qnpprwbuyy9167 [address] eGFR-All Other Races >[address] [facility] Comment on above: Result Comment: eGFR [...] at [email or web address]. Performed By: #### C RET1 ####[facility] [address] [place] [phone] Crypto Antigen Deton 022 Crypto Antigen Det Sp. Request/Comment: - SST Test Result - Duplicate request Account Credited [facility] Comment on above: Performed By: #### C AD #### [facility] [address] [place] [address] [facility] [address] [place] [address] Crypto Antigen Det Sp. Request/Comment: - SST Test Result - Cryptococcal antigen detection result: Negative By latex agglutination [facility] Comment on above: Performed By: #### C AD #### [facility] [address] [place] [phone] [facility] [address] [place] [address] ED NOTEon 05-30-2021 ED NOTE HNO ID: [id number] Author: Aletha Lopez RN Service: ? Author Type: Registered Nurse Type: ED Notes Filed: 05/29/2021 11:16 PM Note Text: Patient changed for incontinent urine, labs redrawn and sent. Patient aware of plan to be admitted and agrees with plan Normal [facility] HISTORY PHYSICALon HISTORY PHYSICAL Normal [facility] HISTORY PHYSICAL HNO ID: [id number] Author: Hermes Roca MD Service: Hospital Medicine Author Type: Physician Type: HANDP Filed: 05/30/2021 1:03 AM Note Text: DEPARTMENT OF HOSPITAL MEDICINE HISTORY AND PHYSICAL EXAM SERVICE DATE: 05/29/2021 SERVICE TIME: 11:18 PM Primary Care Physician: Mateus Burris MD NIGHT AND WEEKEND COVERAGE: Please page [phone] until 7:30am this morning. After 7:30am please check the treatment team banner and page the appropriate service. 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 Normal [facility] Magnesium SerPl-mCncon 05-30 Magnesium [Mass/Vol] 2.5 mg/dL High 1.7-2.3 [facility] Comment on above: Order Comment: Speci men Type: BLOOD SPECIMEN Performed By: #### 1 9123-9, 2777-1 ####[facility] [id number] [place] [address] [place] NURSING PROGon 05-30-2021 NURSING PROG HNO ID: [id number] Author: Precious Cervantes RN Service: ? Author Type: Registered Nurse Type: Nursing Progress Note Filed: 05/30/2021 11:26 AM Note Text: Nursing Progress Note Patient Name: Andrew Sifuentes Patient Location: [place] [address]/[id number]- Daily Note: 0700- Report received from chrome plater helper RN, patient resting in bed at this time, call light within reach, bed low and locked. Asked the patient to state his name because chrome plater helper RN was unable to complete his [...] This note was completed by: Precious Cervantes [facility] NURSING PROG HNO ID: [id number] Author: Lyubov Day RN Service: ? Author Type: Registered Nurse Type: Nursing Progress Note Filed: 05/30/2021 1:27 AM Note Text: Nursing Progress Note Patient Name: Andrew STACKN: [id number] Patient [facility]: [facility]-[id number] 0100: Patient is unresponsive to questions. Patient [...] This note was completed by: Lyubov Day [facility] Phosphate SerPl-mCncon 05-30 Phosphate [Mass/Vol] 3.5 mg/dL Normal 2.7-4.8 [facility] Comment on above: Order Comment: Speci men Type: BLOOD SPECIMEN Performed By: #### 1 9123-9, 2777-1 ####[facility] [id number] [place] [address] [place] Sepsis Lactateon 05-30-2021 Sepsis Lactate 1.5 mmol/L Normal 0.5-2.0 [facility] Comment on above: Performed By: #### S LACT ####[facility] [address] [place] [phone] Syphilis Ttl w/Reflxon 05-30 Syphilis Interp Cannot exclude recen t Treponemal infection if specimen collected within 7 to 10 days after appearance of suspect lesions or 2 to 3 weeks after an exposure. Clinical correlation is required. [facility] Comment on above: Performed By: #### S SAMUEL RUCKER ####[facility] [place], [place] [phone] Syphilis Screen Rslt Non-Reactive Normal Non Reactive [facility] Comment on above: Performed By: #### S SAMUEL RUCKER ####[facility] [place], [place] [phone] THERAPY NTon 05-30-2021 THERAPY NT HNO ID: [id number] Author: Bette Jimenez OTR/L Service: Occupational Therapy Author Type: Occupational Therapist Type: Therapy (PT/OT/Speech/Resp) Filed: 05/30/2021 10:29 AM Note Text: OCCUPATIONAL THERAPY MISSED VISIT SERVICE DATE: 05/30/2021 SERVICE TIME: 1017 to 1019 ROOM: [place] [address] Attempted Evaluation. Patient not seen due to Not following commands. Per nursing patient was seen by neuro and they are talking about having him transferred to [facility] secondary to shunt concerns. Will re attempt in the event patient continues to be admitted at [facility] and is able to participate. SIGNATURE: RADHA Andres/L PATIENT NAME: Andrew Sifuentes DATE: May 30, 2021 TIME: 10:21 AM Normal [facility] THERAPY NT HNO ID: [id number] Author: Bette Velasquez PT Service: Physical Therapy Author Type: Physical Therapist Type: Therapy (PT/OT/Speech/Resp) Filed: 05/30/2021 8:42 AM Note Text: PHYSICAL THERAPY MISSED VISIT SERVICE DATE: 05/30/2021 SERVICE TIME: 0840 to 0840 ROOM: [place] [address] Attempted Evaluation. Patient not seen due to (pt difficult to awake per RN, very lethargic). Will re-attempt when schedule permits. SIGNATURE: Bette Velasquez PT PATIENT NAME: Andrew Sifuentes DATE: May 30, 2021 TIME: 8:41 AM Normal [facility] Toxicology Screen,Uron 05-30 Amphetamines, Urine Negative Normal Negative [facility] Comment on above: Result Comment: Cuto ff threshold at 1000 ng/mL. Performed By: #### C AD #### [facility] [address] [place] [address] [facility] [address] [place], [place] [address] Barbiturates, Urine Negative Normal Negative [facility] Comment on above: Result Comment: Cuto ff threshold at 200 ng/mL. Performed By: #### C AD #### [facility] [place] [phone] [place] [address] Benzodiazepines, Ur Negative Normal Negative [facility] Comment on above: Result Comment: Cuto ff threshold at 200 ng/mL. Performed By: #### C AD #### [facility] [place] [phone] [place] [address] Cannabinoids, Urine Negative Normal Negative [facility] Comment on above: Result Comment: Cuto ff threshold at 50 ng/mL. Performed By: #### C AD #### [facility] [address] [place] [phone] Cocaine, Urine Negative Normal Negative [facility] Comment on above: Result Comment: Cuto ff threshold at 300 ng/mL. Performed By: #### C AD #### [facility] [address] [place], [place] [phone] [place] [address] Opiates, Urine Negative Normal Negative [facility] Comment on above: Result Comment: Cuto ff threshold at 300 ng/mL. Performed By: #### C AD #### [facility] [address] [place], [place] [phone] [place] [address] Oxycodone, Urine Negative Normal Negative [facility] Comment on above: Result Comment: [...] on the same specimen through Client Services ([phone]) if contacted within 48 hours of initial testing. [1]Substance Abuse and Mental Health Services Administration (2012). Clinical Drug Testing in Primary Care Technical Assistance Publication Series 32. Department of Health and Human Services, [place], p.10. Performed By: #### C AD #### [facility] [address] [place] [phone] Phencyclidine, Urine Negative Normal Negative [facility] Comment on above: Result Comment: Cuto ff threshold at 25 ng/mL. Performed By: #### C AD #### [facility] [address] [place] [phone] Troponin Ton 05-30-2021 Troponin T <0.010 Normal 0.000-0.029 [facility] Comment on above: Performed By: #### T NT ####[facility] [address] [place] [phone] Urinalysison 05-30-2021 Bilirubin, Urine Negative Normal Negative [facility] Comment on above: Performed By: #### C AD #### [facility] [address] [place] [phone] Clarity (U) Slightly Cloudy Critically abnormal Clear [facility] Comment on above: Performed By: #### C AD #### [facility] [address] [place] [phone] Color (U) Yellow Normal Yellow [facility] Comment on above: Performed By: #### C AD #### [facility] [address] [place], [place] [address] [place], [place] [address] Glucose Ql (U) Negative Normal Negative [facility] Comment on above: Performed By: #### C AD #### [facility] [address] [place] [address] [facility] [address] [place], [place] [address] Hemoglobin/Blood,Ur Negative Normal Negative [facility] Comment on above: Performed By: #### C AD #### [facility] [address] [place] [address] [facility] [address] [place], [place] [address] Ketones Ql (U) Negative Normal Negative [facility] Comment on above: Performed By: #### C AD #### [facility] [address] [place] [address] [facility] [address] [place], [place] [address] Leukest Negative Normal Negative [facility] Comment on above: Performed By: #### C AD #### [facility] [address] [place] [address] [facility] [address] [place], [place] [address] Nitrite Ql (U) Negative Normal Negative [facility] Comment on above: Performed By: #### C AD #### [facility] [address] [place] [address] [facility] [address] [place], [place] [address] pH (U) 8.5 [pH] High 5.0-8.0 [facility] Comment on above: Performed By: #### C AD #### [facility] [address] [place] [address] [facility] [address] [place], [place] [address] Protein, Urine Negative Normal Negative [facility] Comment on above: Performed By: #### C AD #### [facility] [address] [place] [address] [facility] [address] [place], [place] [address] Specific [facility], Ur 1.015 Normal 1.005-1.030 [facility] Comment on above: Performed By: #### C AD #### [facility] [address] [place] [address] [facility] [address] [place], [place] [address] Urobilinogen Qn (U) 0.2 {Marianne'U}/dL Normal 0.2-1.0 [facility] Comment on above: Performed By: #### C AD #### [facility] [address] [place] [address] [address] Vitamin B1, Whole Blon 05-30 Vitamin B1 (TDP), WB 207.1 nmol/L Normal 84.0-213.0 [facility] Comment on above: Result Comment: This assay measures the concentration of thiamine diphosphate (TDP), the primary active form of vitamin B1. Approximately 90 percent of vitamin B1 present in whole blood is TDP. Thiamine and thiamine monophosphate, which comprise the remaining 10 percent, are not measured. This test was developed and its performance characteristics determined by [facility]'s Isrrael Perez [facility] Pathology and Laboratory Medicine [place] ( [facility]). It has not been cleared or approved by the FDA. [facility] is regulated under CLIA as qualified to perform high complexity testing. This test is used for clinical purposes. It should not be regarded as investigational or for research. Performed By: #### S YPHTX, B1WB ####[facility] [place], [place] [phone] Vitamin B12on 05-30-2021 Cobalamin (Vitamin B12) [Mass/Vol] 494 pg/mL Normal 232-1245 [facility] Comment on above: Performed By: #### C AD #### [facility] [address] [place] [address] [place] [address] [place], [place] [address] ALLIED HEALTHon 05-29-2021 [facility] HNO ID: [id number] Author: RT Kitty(Lisa) Service: Radiology Author Type: Technologist Type: [facility] Filed: 05/29/2021 8:51 PM Note Text: [...] RT Kitty(R) May 29, 2021 8:51 PM [facility] HNO ID: [id number] Author: Markie Fish Service: ? Author Type: Ornamental Metal Worker Apprentice Type: [facility] Filed: 05/29/2021 8:39 PM Note Text: [...] Markie Fish May 29, 2021 8:38 PM [facility] CBC and Differentialon 05-29 Abs Baso 0.05 k/uL Normal <0.11 [facility] Comment on above: Performed By: #### C MP, MG1, CBCDIF ####[facility] [address] [place] [address] Abs Huerf[place] 0.72 k/uL Normal <0.87 [facility] Comment on above: Performed By: #### C MP, MG1, CBCDIF ####[facility] [address] [place] [address] Abs Neut 7.86 k/uL High 1.45-7.50 [facility] Comment on above: Performed By: #### C MP, MG1, CBCDIF ####[place] [address] Absolute nRBC <0.01 Normal <0.01 [facility] Comment on above: Performed By: #### C MP, MG1, CBCDIF ####[place] [address] Basophils/100 WBC (Bld) 0.5 % [facility] Comment on above: Performed By: #### C MP, MG1, CBCDIF ####[place] [address] DTYPE Auto Diff Normal [facility] Comment on above: Performed By: #### C MP, MG1, CBCDIF ####[place] [address] Eosinophils (Bld) [#/Vol] 0.10 10*3/uL Normal <0.46 [facility] Comment on above: Performed By: #### C MP, MG1, CBCDIF ####[place] [address] Eosinophils/100 WBC (Bld) 0.9 % [facility] Comment on above: Performed By: #### C MP, MG1, CBCDIF ####[place] [address] Erythrocyte distribution width (RBC) [Ratio] 15.5 % High 11.5-15.0 [facility] Comment on above: Performed By: #### C MP, MG1, CBCDIF ####[place] [address] Hematocrit (Bld) [Volume fraction] 41.6 % Normal 39.0-51.0 [facility] Comment on above: Performed By: #### C MP, MG1, CBCDIF ####[facility] [address] [place] [address] Hemoglobin (Bld) [Mass/Vol] 12.7 g/dL Low 13.0-17.0 [facility] Comment on above: Performed By: #### C MP, MG1, CBCDIF ####[facility] [address] [place] [address] Lymphocytes (Bld) [#/Vol] 2.04 10*3/uL Normal 1.00-4.00 [facility] Comment on above: Performed By: #### C MP, MG1, CBCDIF ####[facility] [address] [place] [address] Lymphocytes/100 WBC (Bld) 18.9 % Normal [facility] Comment on above: Performed By: #### C MP, MG1, CBCDIF ####[facility] [address] [place] [address] MCH 27.3 pG Normal 26.0-34.0 [facility] Comment on above: Performed By: #### C MP, MG1, CBCDIF ####[facility] [address] [place] [address] MCHC (RBC) [Mass/Vol] 30.5 g/dL Normal 30.5-36.0 [facility] Comment on above: Performed By: #### C MP, MG1, CBCDIF ####[facility] [address] [place], [place] [phone] MCV (RBC) [Entitic vol] 89.5 fL Normal 80.0-100.0 [facility] Comment on above: Performed By: #### C MP, MG1, CBCDIF ####[facility] [address] [place], [place] [phone] Monocytes/100 WBC (Bld) 6.7 % Normal [facility] Comment on above: Performed By: #### C MP, MG1, CBCDIF ####[facility] [address] [place], [place] [phone] Neutrophils/100 WBC (Bld) 73.0 % Normal [facility] Comment on above: Performed By: #### C MP, MG1, CBCDIF ####[facility] [address] [place] [address] NRBCs 0.0 /100 WBC Normal 0 [facility] Comment on above: Performed By: #### C MP, MG1, CBCDIF ####[facility] Dexdfmaktf7597 [address] Platelet mean volume (Bld) [Entitic vol] 10.1 fL Normal 9.0-12.7 [facility] Comment on above: Performed By: #### C MP, MG1, CBCDIF ####[facility] [address] [place] [address] Platelets (Bld) [#/Vol] 291 10*3/uL Normal 150-400 [facility] Comment on above: Performed By: #### C MP, MG1, CBCDIF ####[facility] [address] [place] [address] RBC (Bld) [#/Vol] 4.65 10*6/uL Normal 4.20-6.00 [facility] Comment on above: Performed By: #### C MP, MG1, CBCDIF ####[facility] [address] [place] [address] WBC (Bld) [#/Vol] 10.77 10*3/uL Normal 3.70-11.00 [facility] Comment on above: Performed By: #### C MP, MG1, CBCDIF ####[facility] [address] [place] [phone] CT BRAIN WO IVCONon 05-29-19 CT BRAIN WO IVCON * * *Final Report* * * DATE OF EXAM: May 29 2021 8:42PM [facility] [place]IN [place] IV[place] / PROCEDURE REASON: Head trauma, headache * * * * Physician Interpretation * * * * EXAMINATION: CT CERVICAL SPINE WO IVCON, CT BRAIN WO IVCON CLINICAL HISTORY: C-spine trauma, NEXUS/CCR positive (accession [id number]), Head trauma, headache (accession [id number]) TECHNIQUE: Serial axial unenhanced images were obtained from the vertex to the foramen magnum. Spiral, high resolution axial unenhanced images were obtained from the skull base to the cervicothoracic junction with sagittal and coronal planar reconstructions. Dose-Length Product (DLP): 2132 mGy*cm. CT Dose Reduction Employed: Automated exposure control (AEC) COMPARISON: 08/13/[address] RESULT: BRAIN: Post-operative change: Right parietal approach [employer] shunt is intact. The intracranial fragments of [...] vertebrae with counting from the craniocervical junction. Head Pumper: OG Transcribe Date/Time: May 29 2021 8:59P Dictated by : CARLOS YOUNGER MD This examination was interpreted and the report reviewed and electronically signed by: CARLOS YOUNGER MD on May 29 2021 9:14PM EST [id number] [facility] CT CERVICAL SPINE WO IVCONon 05-29-2021 CT CERVICAL SPINE WO IVCON * * *Final Report* * * DATE OF EXAM: May 29 2021 8:42PM [facility] [place] CT CERVICAL SPINE WO IVCON / PROCEDURE REASON: C-spine trauma, NEXUS/CCR positive * * * * Physician Interpretation * * * * EXAMINATION: CT CERVICAL SPINE WO IVCON, CT BRAIN WO IVCON CLINICAL HISTORY: C-spine trauma, NEXUS/CCR positive (accession [id number]), Head trauma, headache (accession [id number]) TECHNIQUE: Serial axial unenhanced images were obtained from the vertex to the foramen magnum. Spiral, high resolution axial unenhanced images were obtained from the skull base to the cervicothoracic junction with sagittal and coronal planar reconstructions. Dose-Length Product (DLP): 2132 mGy*cm. CT Dose Reduction Employed: Automated exposure control (AEC) COMPARISON: 08/13/[address] RESULT: BRAIN: Post-operative change: Right parietal approach [employer] shunt is intact. The intracranial fragments of [...] vertebrae with counting from the craniocervical junction. [facility] Transcribe Date/Time: May 29 2021 8:59P Dictated by : CARLOS YOUNGER MD This examination was interpreted and the report reviewed and electronically signed by: CARLOS YOUNGER MD on May 29 2021 9:14PM EST [id number] [facility] Cepheid Bill only (EXCFR)on 05-29-2021 Cepheid Bill only (EXCFR) Billed for services performed Normal [facility] Comment on above: Performed By: #### C AD #### [facility] [address] [place] [address] [facility] [address] [place], [place] [address] Comp Metabolic Panelon 05-29 Albumin [Mass/Vol] 4.1 g/dL Normal 3.9-4.9 [facility] Comment on above: Performed By: #### C MP ####[facility] [address] [place] [address] ALP [Catalytic activity/Vol] 86 U/L Normal 38-113 [facility] Comment on above: Performed By: #### C MP ####[facility] [address] [place] [address] ALT [Catalytic activity/Vol] 15 U/L Normal 10-54 [facility] Comment on above: Performed By: #### C MP ####[facility] [address] [place] [address] Anion gap [Moles/Vol] 9 mmol/L Normal 9-18 [facility] Comment on above: Performed By: #### C MP ####[facility] [address] [place] [address] AST [Catalytic activity/Vol] 22 U/L Normal 14-40 [facility] Comment on above: Performed By: #### C MP ####[facility] [address] [place] [address] Bilirubin [Mass/Vol] 0.2 mg/dL Normal 0.2-1.3 [facility] Comment on above: Performed By: #### C MP ####[facility] [address] [place] [address] Calcium [Mass/Vol] 9.1 mg/dL Normal 8.5-10.2 [facility] Comment on above: Performed By: #### C MP ####[facility] [address] [place] [address] Chloride [Moles/Vol] 103 mmol/L Normal 97-105 [facility] Comment on above: Performed By: #### C MP ####[facility] [address] [place] [address] CO2 [Moles/Vol] 29 mmol/L Normal 22-30 [facility] Comment on above: Performed By: #### C MP ####[facility] [address] [place] [address] Creatinine [Mass/Vol] 0.89 mg/dL Normal 0.73-1.22 [facility] Comment on above: Performed By: #### C MP ####[facility] [address] [place] [address] eGFR- Amer. >60 Normal [facility] Comment on above: Performed By: #### C MP ####[facility] Whhphmuelf[address] [place] [address] eGFR-All Other Races >[address] [facility] Comment on above: Result Comment: eGFR [...] at [email or web address]. Performed By: #### C MP ####[facility] Ucvyupybzb2736 [address] Glucose [Mass/Vol] 120 mg/dL High 74-99 [facility] Comment on above: Result Comment: The [place] Diabetes Association (ADA) provides guidance for cutoff [...] Standards of Medical Care in Diabetes 2016, [place] [employer]. Diabetes Care. 2016.39(Suppl 1). Performed By: #### C MP ####[facility] [address] [place] [address] Potassium [Moles/Vol] 4.2 mmol/L Normal 3.7-5.1 [facility] Comment on above: Performed By: #### C MP ####[facility] [address] [place] [address] Protein [Mass/Vol] 7.1 g/dL Normal 6.3-8.0 [facility] Comment on above: Performed By: #### C MP ####[place] [address] Sodium [Moles/Vol] 141 mmol/L Normal 136-144 [facility] Comment on above: Performed By: #### C MP ####[facility] [address] [place] [address] Urea nitrogen [Mass/Vol] 11 mg/dL Normal 9-24 [facility] Comment on above: Performed By: #### C MP ####[place] [address] Albumin [Mass/Vol] 4.1 g/dL Normal 3.9-4.9 [facility] Comment on above: Performed By: #### C MP, MG1, CBCDIF ####[place] [address] ALP [Catalytic activity/Vol] 86 U/L Normal 38-113 [facility] Comment on above: Performed By: #### C MP, MG1, CBCDIF ####[place] [address] ALT Unable to assay due to interference from hemolysis. Suggest reorder as clinically indicated. Normal 10-54 [facility] Comment on above: Result Comment: Call ed to LISA Rea at 2129 on 05.29.21 by Sabino Performed By: #### C MP, MG1, CBCDIF ####[facility] [address] [place] [address] Anion gap [Moles/Vol] 12 mmol/L Normal 9-18 [facility] Comment on above: Performed By: #### C MP, MG1, CBCDIF ####[facility] [address] [place] [address] AST Unable to assay due to interference from hemolysis. Suggest reorder as clinically indicated. Normal 14-40 [facility] Comment on above: Result Comment: Call ed to ED Álvaro at 2129 on 05.29.21 by Sabino Performed By: #### C MP, MG1, CBCDIF ####[facility] [address] [place] [address] Bilirubin [Mass/Vol] 0.2 mg/dL Normal 0.2-1.3 [facility] Comment on above: Performed By: #### C MP, MG1, CBCDIF ####[facility] [address] [place] [address] Calcium [Mass/Vol] 9.0 mg/dL Normal 8.5-10.2 [facility] Comment on above: Performed By: #### C MP, MG1, CBCDIF ####[facility] [address] [place] [address] Chloride [Moles/Vol] 102 mmol/L Normal 97-105 [facility] Comment on above: Performed By: #### C MP, MG1, CBCDIF ####[facility] [address]53 [place] [address] CO2 [Moles/Vol] 27 mmol/L Normal 22-30 [facility] Comment on above: Performed By: #### C MP, MG1, CBCDIF ####[facility] [address] [place] [address] Creatinine [Mass/Vol] 0.75 mg/dL Normal 0.73-1.22 [facility] Comment on above: Performed By: #### C MP, MG1, CBCDIF ####[facility] [address] [place] [address] eGFR- Amer. >60 Normal [facility] Comment on above: Performed By: #### C MP, MG1, CBCDIF ####[facility] [address] [place] [phone] eGFR-All Other Races >[address] [facility] Comment on above: Result Comment: eGFR [...] By: #### C MARÍA ELENA, MG1, CBCDIF ####[facility] [address] [place] [phone] Glucose [Mass/Vol] 112 mg/dL High 74-99 [facility] Comment on above: Result Comment: The [place] Diabetes Association (ADA) provides guidance for cutoff [...] Standards of Medical Care in Diabetes 2016, [place] Diabetes Association. Diabetes Care. 2016.39(Suppl 1). Performed By: #### C MP, MG1, CBCDIF ####[facility] [address] [place] [phone] Potassium Unable to assay due to interference from hemolysis. Suggest reorder as clinically indicated. Normal 3.7-5.1 [facility] Comment on above: Result Comment: Call ed to ED Álvaro at 2129 on 05.29.21 by Sabino Performed By: #### C MP, MG1, CBCDIF ####[facility] [address] [place] [phone] Protein [Mass/Vol] 7.3 g/dL Normal 6.3-8.0 [facility] Comment on above: Performed By: #### C MP, MG1, CBCDIF ####[facility] Cdheohjjui4886 [address]721[address]5160 Sodium [Moles/Vol] 141 mmol/L Normal 136-144 [facility] Comment on above: Performed By: #### C MP, MG1, CBCDIF ####[facility] [address] [place] [phone] Urea nitrogen [Mass/Vol] 11 mg/dL Normal 9-24 [facility] Comment on above: Performed By: #### C MP, MG1, CBCDIF ####[facility] [address] [place] [phone] ED PROV NOTEon 05-29-2021 ED PROV NOTE HNO ID: [id number] Author: Shanell Slaughter MD Service: ? Author [...] No radiographic evidence of acute cardiopulmonary disease. Head Pumper: [facility] Transcribe Date/Time: May 29 2021 [...] vertebrae with counting from the craniocervical junction. Head Pumper: [facility] Transcribe Date/Time: May 29 2021 [...] vertebrae with counting from the craniocervical junction. Head Pumper: [facility] Transcribe Date/Time: May 29 (more content not included)... Normal [facility] ED PROV NOTE HNO ID: [id number] Author: Flavio Pandya DO Service: Emergency Medicine Author Type: Physician Type: ED Provider Notes Filed: 05/29/2021 7:10 PM Note Text: ED Provider Note Patient Name: Andrew Sifuentes SERVICE DATE: 05/29/21 History Patient presents with: Fall 71 yo male non-smoker, hx of HTN, 2 [employer] shunts, PE (not on anticoagulation now), asthma, [...] Provider Location: [facility] Facility Patient Location: Outpatient Hospital Physical Exam [...] Flavio Pandya, DO Flavio Pandya, 05/29/211909 Normal [facility] EXCOVD, Flu A/B, RSV (On int erfaces 1102,1120)on 05-29-2021 Influenza A PCR Negative Normal [facility] Comment on above: Performed By: #### C AD #### [facility] [address] [place], [place] [address] [place] [address] Influenza B PCR Negative Normal [facility] Comment on above: Performed By: #### C AD #### [facility] [address] [place], [place] [address] [place] [address] RSV PCR Negative Normal [facility] Comment on above: Result Comment: This test has been authorized by [facility] under an Emergency Use Authorization (EUA). Performed By: #### C AD #### [facility] [address] [place] [address] SARS-CoV-2 (COVID-19) RNA MEGAN+probe Ql (Unsp spec) UPPER RESPIRATORY TRACT SWAB Normal [facility] Comment on above: Performed By: #### C AD #### [facility] [address] [place], [place] [address] [place] [address] SARS-CoV-2 (COVID-19) RNA MEGAN+probe Ql (Unsp spec) Negative for COVID19 (SARS CoV2) by RT-PCR or equivalent method. Normal Negative for COVID19 (SARS CoV2) by RT-PCR or equivalent method. [facility] Comment on above: Result Comment: This test has been authorized by [facility] under an Emergency Use Authorization (EUA). Performed By: #### C AD #### [facility] [address] [place], [place] [address] [place] [phone] Magnesiumon 05-29-2021 Magnesium [Mass/Vol] 2.2 mg/dL Normal 1.7-2.3 [facility] Comment on above: Performed By: #### C MP, MG1, CBCDIF ####[address]721-5160 NT Pro BNPon 05-29-2021 PRO B Natr Peptide 303 pg/mL High <125 [facility] Comment on above: Performed By: #### N TBNP ####[facility] Tjjorygvcx8941 [phone] Troponin Ton 05-29-2021 Troponin T <0.010 Normal 0.000-0.029 [facility] Comment on above: Performed By: #### T NT ####[facility] [address] [place] [phone] Troponin T Unable to assay due to interference from hemolysis. Suggest reorder as clinically indicated. Normal 0.000-0.029 [facility] Comment on above: Result Comment: Call ed to ED Álvaro at 2129 on 05.29.21 by Sabino Performed By: #### T NT ####[facility] Offjxrccba6758 [phone] XR CHEST 1V FRONTAL PORTon 0 [...] No radiographic evidence of acute cardiopulmonary disease. Head Pumper: OG Transcribe Date/Time: May 29 2021 8:53P Dictated by : ROLY BANGURA MD This examination was interpreted and the report reviewed and electronically signed by: ROLY BANGURA MD on May 29 2021 8:54PM EST [id number] Normal [facility] COMPREHENSIVE PANELon 2020 Albumin [Mass/Vol] 3.9 g/dL Normal 3.4 - 5.0 [facility] Comment on above: Order Comment: PATIE NT FASTING Performed By: #### C MP #### [facility] [address] [place] [address] ALP [Catalytic activity/Vol] 71 U/L Normal 33 - 136 [facility] Comment on above: Order Comment: PATIE NT FASTING Performed By: #### C MP #### [facility] [address] [place] [address] ALT [Catalytic activity/Vol] 19 U/L Normal 10 - 52 [facility] Comment on above: Order Comment: PATIE NT FASTING Result Comment: Nasima ents treated with Sulfasalazine may generate falsely decreased results for ALT. Performed By: #### C MP #### [facility] [address] [place] [address] Anion gap [Moles/Vol] 13 mmol/L Normal 10 - 20 [facility] Comment on above: Order Comment: PATIE NT FASTING Performed By: #### C MP #### [facility] [address] [place] [address] AST [Catalytic activity/Vol] 20 U/L Normal 9 - 39 [facility] Comment on above: Order Comment: PATIE NT FASTING Performed By: #### C MP #### [facility] [address] [place] [address] Bilirubin [Mass/Vol] 0.6 mg/dL Normal 0.0 - 1.2 [facility] Comment on above: Order Comment: PATIE NT FASTING Performed By: #### C MP #### [facility] [address] [place] [address] Calcium [Mass/Vol] 9.0 mg/dL Normal 8.6 - 10.6 [facility] Comment on above: Order Comment: PATIE NT FASTING Performed By: #### C MP #### [facility] [address] [place] [address] Chloride [Moles/Vol] 103 mmol/L Normal 98 - 107 [facility] Comment on above: Order Comment: PATIE NT FASTING Performed By: #### C MP #### [facility] [address] [place] [address] Creatinine [Mass/Vol] 0.94 mg/dL Normal 0.50 - 1.30 [facility] Comment on above: Order Comment: PATIE NT FASTING Performed By: #### C MP #### [facility] [address] [place] [address] GFR- AM. >60 Normal >60 [facility] Comment on above: Order Comment: PATIE NT FASTING Result Comment: CALC ULATIONS OF ESTIMATED GFR ARE PERFORMED USING THE MDRD STUDY EQUATION FOR THE IDMS-TRACEABLE CREATININE METHODS. CLIN CHEM 2007;53:766-72 Performed By: #### C MP #### [facility] [address] [place] [address] GFR-NON AM. >60 Normal >60 [facility] Comment on above: Order Comment: PATIE NT FASTING Performed By: #### C MP #### [facility] [address] [place] [address] Glucose [Mass/Vol] 85 mg/dL Normal 74 - 99 [facility] Comment on above: Order Comment: PATIE NT FASTING Performed By: #### C MP #### [facility] [address] [place] [address] HCO3 (Bld) [Moles/Vol] 30 mmol/L Normal 21 - 32 [facility] Comment on above: Order Comment: PATIE NT FASTING Performed By: #### C MP #### [facility] [address] [place] [address] Potassium [Moles/Vol] 4.1 mmol/L Normal 3.5 - 5.3 [facility] Comment on above: Order Comment: PATIE NT FASTING Performed By: #### C MP #### [facility] [address] [place] [address] Protein [Mass/Vol] 6.6 g/dL Normal 6.4 - 8.2 [facility] Comment on above: Order Comment: PATIE NT FASTING Performed By: #### C MP #### [facility] [address] [place] [address] Sodium [Moles/Vol] 142 mmol/L Normal 136 - 145 [facility] Comment on above: Order Comment: PATIE NT FASTING Performed By: #### C MP #### [facility] [address] [place] [address] Urea nitrogen [Mass/Vol] 14 mg/dL Normal 6 - 23 [facility] Comment on above: Order Comment: PATIE NT FASTING Performed By: #### C MP #### [facility] [address] [place] [address] LIPID PANEL (CORONARY RISK 2 )on 09-03-2020 Cholesterol [Mass/Vol] 210 mg/dL High 0 - 199 [facility] Comment on above: Order Comment: PATIE NT [...] Performed By: #### L IPID #### [facility] [address] [place] [address] Cholesterol in HDL [Mass/Vol] 50.1 mg/dL Normal [facility] Comment on above: Order Comment: PATIE NT FASTING Result Comment: . AGE VERY LOW LOW NORMAL HIGH 0-19 Y < 35 < 40 40-45 ---- 20-24 Y ---- < 40 >45 ---- >24 Y ---- < 40 40-60 >60 . Performed By: #### L IPID #### [facility] [address] [place] [address] Cholesterol in LDL [Mass/Vol] 130 mg/dL High 0 - 99 [facility] Comment on above: Order Comment: PATIE NT FASTING Result Comment: . NEAR BORD AGE DESIRABLE OPTIMAL HIGH HIGH VERY HIGH 0-19 Y 0 - 109 --- 110-129 >/= 130 ---- 20-24 Y 0 - 119 --- 120-159 >/= 160 ---- >24 Y 0 - 99 100-129 130-159 160-189 >/=190 . Performed By: #### L IPID #### [facility] [address] [place] [address] Cholesterol in VLDL [Mass/Vol] 30 mg/dL Normal 0 - 40 [facility] Comment on above: Order Comment: PATIE NT FASTING Performed By: #### L IPID #### [facility] [address] [place] [address] Cholesterol.total/Chol esterol in HDL [Mass ratio] 4.2 {ratio} Normal [facility] Comment on above: Order Comment: PATIE NT FASTING Result Comment: REF VALUES DESIRABLE < 3.4 HIGH RISK > 5.0 Performed By: #### L IPID #### [facility] [address] [place] [address] Triglyceride [Mass/Vol] 152 mg/dL High 0 - 149 [facility] Comment on above: Order Comment: PATIE NT [...] Performed By: #### L IPID #### [facility] [address] [place] [address] PROSTATE SPEC.AG,SCREENon PROSTATE SPEC.AG,SCREEN 0.37 ng/mL Normal 0.00 - 4.00 [facility] Comment on above: Order Comment: PATIE NT FASTING Result Comment: The FDA requires that the method used for PSA assay be reported to the physician. Values obtained with different assay methods must not be used interchangeably. This test was performed at [facility] using the [employer] PSA method, which is a sandwich immunoassay using chemiluminescence for quantitation. The assay is approved for measurement of prostate-specific antigen (PSA) in serum and may be used in conjunction with a digital rectal examination in men 50 years and older as an aid in detection of prostate cancer. 6-Ljhyd-ywnoslmei inhibitors (e.g. Proscar, Finasteride, Avodart, Dutasteride and Elizabeth) for the treatment of BPH have been shown to lower PSA levels by an average of 50% after 6 months of treatment. Performed By: #### P SAS #### [facility] [address] [place] [address] TSH WITH REFLEX TO FREE T4 I F ABNORMALon 09-03-2020 TSH Qn 0.97 m[IU]/L Normal 0.44 - 3.98 [facility] Comment on above: Order Comment: PATIE NT FASTING Result Comment: TSH testing is performed using different testing methodology at [facility] than at other [facility]. Direct result comparisons should only be made within the same method. Performed By: #### T HYDS #### [facility] [address] [place] [address] CBC AND DIFFERENTIALon 09-02 % AUTOMATED IMMATURE GRAN 0.3 % Normal 0.0 - 0.9 [facility] Comment on above: Order Comment: PATIE NT FASTING Result Comment: [place] Granulocyte Count (IG) includes promyelocytes, myelocytes and metamyelocytes but does not include bands. Percent differential counts (%) should be interpreted in the context of the absolute cell counts (cells/L). Performed By: #### C BCDF #### [facility] [address] [place] [address] Basophils (Bld) [#/Vol] 0.07 10*3/uL Normal 0.00 - 0.10 [facility] Comment on above: Order Comment: PATIE NT FASTING Result Comment: Auto mated WBC differential has been confirmed by manual smear. Performed By: #### C BCDF #### [facility] [address] [place] [address] Basophils/100 WBC (Bld) 0.9 % Normal 0.0 - 2.0 [facility] Comment on above: Order Comment: PATIE NT FASTING Performed By: #### C BCDF #### [facility] [address] [place] [address] Eosinophils (Bld) [#/Vol] 0.21 10*3/uL Normal 0.00 - 0.70 [facility] Comment on above: Order Comment: PATIE NT FASTING Performed By: #### C BCDF #### [facility] [address] [place] [address] Eosinophils/100 WBC (Bld) 2.8 % Normal 0.0 - 6.0 [facility] Comment on above: Order Comment: PATIE NT FASTING Performed By: #### C BCDF #### [facility] [address] [place] [address] Lymphocytes (Bld) [#/Vol] 2.28 10*3/uL Normal 1.20 - 4.80 [facility] Comment on above: Order Comment: PATIE NT FASTING Performed By: #### C BCDF #### [place] [address] [place] [address] Lymphocytes/100 WBC (Bld) 30.9 % Normal 13.0 - 44.0 [facility] Comment on above: Order Comment: PATIE NT FASTING Performed By: #### C BCDF #### [facility] [address] [place] [address] Monocytes (Bld) [#/Vol] 0.50 10*3/uL Normal 0.10 - 1.00 [facility] Comment on above: Order Comment: PATIE NT FASTING Performed By: #### C BCDF #### [facility] [address] [place] [address] Monocytes/100 WBC (Bld) 6.8 % Normal 2.0 - 10.0 [facility] Comment on above: Order Comment: PATIE NT FASTING Performed By: #### C BCDF #### [facility] [address] [place] [address] Neutrophils (Bld) [#/Vol] 4.29 10*3/uL Normal 1.20 - 7.70 [facility] Comment on above: Order Comment: PATIE NT FASTING Performed By: #### C BCDF #### [facility] [address] [place] [address] Neutrophils/100 WBC (Bld) 58.3 % Normal 40.0 - 80.0 [facility] Comment on above: Order Comment: PATIE NT FASTING Performed By: #### C BCDF #### [facility] [address] [place] [address] Erythrocyte distribution width (RBC) [Ratio] 14.6 % High 11.5 - 14.5 [facility] Comment on above: Order Comment: PATIE NT FASTING Performed By: #### C BCDF #### [facility] [address] [place] [address] Hematocrit (Bld) [Volume fraction] 43.1 % Normal 41.0 - 52.0 [facility] Comment on above: Order Comment: PATIE NT FASTING Performed By: #### C BCDF #### [facility] [address] [place] [address] Hemoglobin (Bld) [Mass/Vol] 13.3 g/dL Low 13.5 - 17.5 [facility] Comment on above: Order Comment: PATIE NT FASTING Performed By: #### C BCDF #### [facility] [address] [place] [address] MCHC (RBC) [Mass/Vol] 30.9 g/dL Low 32.0 - 36.0 [facility] Comment on above: Order Comment: PATIE NT FASTING Performed By: #### C BCDF #### [facility] [address] [place] [address] MCV (RBC) [Entitic vol] 92 fL Normal 80 - 100 [facility] Comment on above: Order Comment: PATIE NT FASTING Performed By: #### C BCDF #### [facility] [address] [place] [address] NUCLEATED RBC 0.0 /100 WBC Normal 0.0-0.0 [facility] Comment on above: Order Comment: PATIE NT FASTING Performed By: #### C BCDF #### [facility] [address] [place] [address] Platelets (Bld) [#/Vol] 267 10*3/uL Normal 150 - 450 [facility] Comment on above: Order Comment: PATIE NT FASTING Performed By: #### C BCDF #### [facility] [address] [place] [address] RBC 4.69 x10E12/L Normal 4.50 - 5.90 [facility] Comment on above: Order Comment: PATIE NT FASTING Performed By: #### C BCDF #### [facility] [address] [place] [address] WBC (Bld) [#/Vol] 7.4 10*3/uL Normal 4.4 - 11.3 [facility] Comment on above: Order Comment: PATIE NT FASTING Performed By: #### C BCDF #### [facility] [address] [place] [address] RED CELL MORPHOLOGYon 2020 CHANELL CELLS Few Normal [facility] Comment on above: Order Comment: PATIE NT FASTING Performed By: #### M ORP2 #### [facility] [address] [place] [address] OVALOCYTES Few Normal [facility] Comment on above: Order Comment: PATIE NT FASTING Performed By: #### M ORP2 #### [facility] [address] [place] [address] POLYCHROMASIA Mild Normal [facility] Comment on above: Order Comment: PATIE NT FASTING Performed By: #### M ORP2 #### [facility] [address] [place] [address] RBC FRAGMENTS Few Normal [facility] Comment on above: Order Comment: PATIE NT FASTING Performed By: #### M ORP2 #### [facility] [address] [place] [address] RBC morphology finding Nom (Bld) See Below Normal [facility] Comment on above: Order Comment: PATIE NT FASTING Performed By: #### M ORP2 #### [facility] [address] [place] [address] No Panel Informationon 01-19 76 1 MP-Cardiolo [...] [place] Work Phone: [email or web address] ?RetrieveTestByDateTime?P nrhdwkMD=[id number]&Date=1 09-13-2019&Time=15%3a11%3a 03%3a00&TestType=ECG&Site =1&OutputType=PDF&Ext=PDF [facility]iolo [facility] [place] Work Phone: Otheron 11-13-2019 [facility] Complete Blood Count + Diffe rentialon 11-06-2019 Basophils (Bld) [#/Vol] 0.06 {x10E9/L} See Below [facility] Work Phone: Comment on above: Reference Range: 0.0 0 - 0.10 Basophils/100 WBC (Bld) 0.8 % 0.0 - 2.0 [facility] Work Phone: [phone] Eosinophils (Bld) [#/Vol] 0.18 {x10E9/L} See Below [facility] Work Phone: Comment on above: Reference Range: 0.0 0 - 0.70 Eosinophils/100 WBC (Bld) 2.5 % 0.0 - 6.0 [facility] Work Phone: Erythrocyte distribution width (RBC) [Ratio] 13.7 % See Below [facility] Work Phone: Comment on above: Reference Range: 11. 5 - 14.5 Hematocrit (Bld) [Volume fraction] 45.5 % See Below [facility] Work Phone: Comment on above: Reference Range: 41. 0 - 52.0 Hemoglobin (Bld) [Mass/Vol] 14.0 g/dL See Below [facility] Work Phone: Comment on above: Reference Range: 13. 5 - 17.5 Lymphocytes (Bld) [#/Vol] 2.15 {x10E9/L} See Below [facility] Work Phone: Comment on above: Reference Range: 1.2 0 - 4.80 Lymphocytes/100 WBC (Bld) 29.9 % See Below [facility] Work Phone: Comment on above: Reference Range: 13. 0 - 44.0 MCHC (RBC) [Mass/Vol] 30.8 g/dL below low threshold See Below [facility] Work Phone: Comment on above: Reference Range: 32. 0 - 36.0 MCV (RBC) [Entitic vol] 94 fL 80 - 100 [facility] Work Phone: Monocytes (Bld) [#/Vol] 0.49 {x10E9/L} See Below [facility] Work Phone: Comment on above: Reference Range: 0.1 0 - 1.00 Monocytes/100 WBC (Bld) 6.8 % 2.0 - 10.0 [facility] Work Phone: Neutrophils (Bld) [#/Vol] 4.30 {x10E9/L} See Below [facility] Work Phone: Comment on above: Reference Range: 1.2 0 - 7.70 Neutrophils/100 WBC (Bld) 59.9 % See Below [facility] Physician [facility] Work Phone: Comment on above: Reference Range: 40. 0 - 80.0 Platelets (Bld) [#/Vol] 270 {x10E9/L} 150 - 450 [facility] Work Phone: RBC (Bld) [#/Vol] 4.85 {x10E12/L} See Below [facility] Physician [facility] Work Phone: Comment on above: Reference Range: 4.5 0 - 5.90 WBC (Bld) [#/Vol] 0.0 {/100_WBC} 0.0-0.0 [facility] Work Phone: WBC (Bld) [#/Vol] 7.2 {x10E9/L} 4.4 - 11.3 [facility] Physician [facility] Work Phone: Complete Blood Count + Differential 0.1 % 0.0 - 0.9 [facility] Physician [facility] Work Phone: Comment on above: Immature Granulocyte Count (IG) includes promyelocytes, myelocytes and metamyelocytes but does not include bands. Percent differential counts (%) should be interpreted in the context of the absolute cell counts (cells/L). Lipid Panelon 11-06-2019 Cholesterol [Mass/Vol] 181 mg/dL 0 - 199 [facility] Physician [facility] Work Phone: Comment on above: . [...] dosing. Cholesterol in HDL [Mass/Vol] 52.1 mg/dL [facility] Physician [facility] Work Phone: Comment on above: . AGE VERY LOW LOW N ORMAL HIGH 0-19 Y < 35 < 40 40-45 ---- 20-24 Y ---- < 40 >45 ---- >24 Y ---- < 40 40-60 >60. Cholesterol in LDL [Mass/Vol] 97 mg/dL 0 - 99 [facility] Work Phone: Comment on above: . NEAR BORD AGE IZABELLA RABLE OPTIMAL HIGH HIGH VERY HIGH 0-19 Y 0 - 109 --- 110-129 >/= 130 ---- 20-24 Y 0 - 119 --- 120-159 >/= 160 ---- >24 Y 0 - 99 100-129 130-159 160-189 >/=190. Cholesterol.total/Chol esterol in HDL [Mass ratio] 3.5 {ratio} [facility] Work Phone: Comment on above: REF VALUESDESIRABLE < 3.4HIGH RISK > 5.0 Triglyceride [Mass/Vol] 158 mg/dL above high threshold 0 - 149 [facility] Work Phone: Comment on above: [...] Lipid Panel 32 mg/dL 0 - 40 [facility] Work Phone: Metabolic Panelon 11-06-2019 ALP [Catalytic activity/Vol] 70 U/L 33 - 136 [facility] Physician [facility] Work Phone: Anion gap [Moles/Vol] 13 mmol/L 10 - 20 [facility] Work Phone: Bilirubin [Mass/Vol] 0.6 mg/dL 0.0 - 1.2 [facility] Physician [facility] Work Phone: Calcium [Mass/Vol] 9.4 mg/dL 8.6 - 10.6 [facility] Work Phone: Chloride [Moles/Vol] 99 mmol/L 98 - 107 [facility] Work Phone: CO2 [Moles/Vol] 30 mmol/L 21 - 32 [facility] Physician [facility] Work Phone: Creatinine [Mass/Vol] 0.87 mg/dL See Below [facility] Physician [facility] Work Phone: Comment on above: Reference Range: 0.5 0 - 1.30 Glucose [Mass/Vol] 89 mg/dL 74 - 99 [facility] Physician [facility] Work Phone: Potassium [Moles/Vol] 4.3 mmol/L 3.5 - 5.3 [facility] Work Phone: Protein [Mass/Vol] 7.3 g/dL 6.4 - 8.2 [facility] Work Phone: Sodium [Moles/Vol] 138 mmol/L 136 - 145 [facility] Work Phone: Urea nitrogen [Mass/Vol] 14 mg/dL 6 - 23 [facility] Work Phone: Otheron 11-06-2019 Albumin BCP dye [Mass/Vol] 4.4 g/dL 3.4 - 5.0 [facility] Work Phone: ALT With P-5'-P [Catalytic activity/Vol] 11 U/L 10 - 52 [facility] Work Phone: Comment on above: Patients treated wit h Sulfasalazine may generate falsely decreased results for ALT. AST With P-5'-P [Catalytic activity/Vol] 17 U/L 9 - 39 [facility] Work Phone: >60 >60 [facility] Work Phone: Comment on above: CALCULATIONS [...] 175.3 cm Rebecca Buck MD Work Phone: [facility] 09-13-2023 11:48-0400 Body mass index (BMI) [Ratio] 25.84 kg/m2 Rebecca Buck MD Work Phone: [facility] 09-13-2023 11:48-0400 Body weight 79.38 kg Rebecca Buck MD Work Phone: [facility] 08-13-2023 09:56-0400 Body height 175.3 cm Rebecca Buck MD Work Phone: [facility] 08-13-2023 09:56-0400 Body mass index (BMI) [Ratio] 25.84 kg/m2 Rebecca Buck MD Work Phone: [facility] 08-13-2023 09:56-0400 Body weight 79.38 kg Rebecca Buck MD Work Phone: [facility] 03-02-2022 18:49-0400 Body temperature 98.01 [degF] Lanette Munguia DO Work Phone: [employer] 03-02-2022 18:49-0400 Diastolic blood pressure 72 mm[Hg] Lanette [facility]unguia DO [facility] 03-02-2022 18:49-0400 Heart rate 94 /min Lanette Munguia DO Work Phone: [facility] 03-02-2022 18:49-0400 Respiratory rate 18 /min Lanette Munguia DO Work Phone: [facility] 03-02-2022 18:49-0400 SaO2% (BldA) [Mass fraction] 98 % Lanette Munguia DO Work Phone: [facility] 03-02-2022 18:49-0400 Systolic blood pressure 104 mm[Hg] Lanette Munguia DO Work Phone: [facility] 03-02-2022 11:55-0400 Body height 175.3 cm Lanette Munguia DO Work Phone: [facility] 03-02-2022 11:55-0400 Body mass index (BMI) [Ratio] 25.84 kg/m2 Lanette Munguia DO Work Phone: [facility] 03-02-2022 11:55-0400 Body weight 79.38 kg Lanette Munguia DO Work Phone: [facility] 12-22-2021 02:08-0400 Diastolic blood pressure 67 mm[Hg] Sharon Olivia MD Work Phone: [facility] 12-22-2021 02:08-0400 Heart rate 77 /min Sharon Olivia MD [facility] 12-22-2021 02:08-0400 Respiratory rate 16 /min Sharon Olivia MD Work Phone[facility] 12-22-2021 02:08-0400 SaO2% (BldA) [Mass fraction] 96 % Sharon Olivia MD Work Phone: [facility] 12-22-2021 02:08-0400 Systolic blood pressure 108 mm[Hg] Sharon Olivia MD Work Phone: [facility] 12-21-2021 23:52-0400 Body height 175.3 cm Sharon Olivia MD Work Phone: [facility] 12-21-2021 23:52-0400 Body mass index (BMI) [Ratio] 25.84 kg/m2 Sharon Olivia MD Work Phone: [facility] 12-21-2021 23:52-0400 Body temperature 97.9 [degF] Sharon Olivia MD Work Phone: [facility] 12-21-2021 23:52-0400 Body weight 79.38 kg Sharon Olivia MD Work Phone: [facility] 11-01-2021 08:41-0400 Diastolic blood pressure 77 mm[Hg] Dante Kim MD Work Phone: [facility] 11-01-2021 08:41-0400 Heart rate 75 /min Dante Kim MD Work Phone: [facility] 11-01-2021 08:41-0400 Respiratory rate 16 /min Dante Kim MD Work Phone: [facility] 11-01-2021 08:41-0400 SaO2% (BldA) [Mass fraction] 97 % Dante Kim MD Work Phone: [facility] 11-01-2021 08:41-0400 Systolic blood pressure 112 mm[Hg] Dante Kim MD Work Phone: [facility] 10-31-2021 19:13-0400 Body height 177.8 cm Dante Kim MD Work Phone: [facility] 10-31-2021 19:13-0400 Body mass index (BMI) [Ratio] 27.26 kg/m2 Dante Kim MD Work Phone: [facility] 10-31-2021 19:13-0400 Body temperature 98.49 [degF] Dante Kim MD Work Phone: [facility] 10-31-2021 19:13-0400 Body weight 86.18 kg Dante Kim MD Work Phone: [facility] 10-29-2021 07:38-0400 Body temperature 97.81 [degF] Lisa Miguel Angel DO Work Phone: [facility] 10-29-2021 07:38-0400 Diastolic blood pressure 79 mm[Hg] Lisa Miguel Angel DO Work Phone: [facility] 10-29-2021 07:38-0400 Heart rate 80 /min Lisa Miguel Angel DO Work Phone: [facility] 10-29-2021 07:38-0400 Respiratory rate 18 /min Lisa Miguel Angel DO Work Phone: [facility] 10-29-2021 07:38-0400 SaO2% (BldA) [Mass fraction] 96 % Lisa Miguel Angel DO Work Phone: [facility] 10-29-2021 07:38-0400 Systolic blood pressure 123 mm[Hg] Lisa Miguel Angel DO Work Phone: [facility] 10-25-2021 13:55-0400 Body height 170.2 cm Lisa Miguel Angel DO Work Phone: [facility] 10-21-2021 00:57-0400 Body mass index (BMI) [Ratio] 37.58 kg/m2 Lisa Miguel Angel DO Work Phone: [facility] 10-21-2021 00:57-0400 Body weight 108.86 kg Lisa Miguel Angel DO Work Phone: [facility] 07-13-2020 13:21-0500 BMI (Body Mass Index) 40.47 kg/m2 Monika Staley [facility] Work Phone: 07-13-2020 13:21-0500 Body Temperature 98 [degF] Monika Staley [facility] Work Phone: 07-13-2020 [...] Source: 04-13-2020 15:33-0500 0 1 Wing Ritter [facility] Work Phone: Comment on above: Pain Scale 01-20-2020 16:39-0400 Body height 175.26 cm Monika Staley MD MP-Cardiolog y[facility] [address] [place] Work Phone: 01-20-2020 16:39-0400 Body mass index (BMI) [Ratio] 39.28 kg/m2 Monika Staley MD JB-Ehgpuigkpp-Eaz [address] [place] Work Phone: 01-20-2020 16:39-0400 Body surface area Derived from formula 2.33 m2 Monika Staley MD XR-Ntcfdizdmh-Ksx [address] [address] [place] Work Phone: 01-20-2020 16:39-0400 Body weight 120.66 kg Monika Staley MD [facility] [address] [place] Work Phone: 01-20-2020 16:39-0400 Diastolic blood pressure 84 mm[Hg] Monika Staley MD WP-Sgmepojrqo-Usz [address] [place] Work Phone: Comment on above: Location: [facility]; Position: Sitting 01-20-2020 16:39-0400 Heart rate 80 /min Monika Staley MD, [facility] [address] [place] Work Phone: 01-20-2020 16:39-0400 SaO2% (BldA) [Mass fraction] 100 % Monika Staley MD QU-Xzdtjvzdmp-Ynx [address] [place] Work Phone: Comment on above: Source: 01-20-2020 16:39-0400 Systolic blood pressure 144 mm[Hg] Monika Staley MD IW-Lzzyrqtzrs-Vba [address] [place] Work Phone: Comment on above: Location: [facility]; Position: Sitting 11-06-2019 15:29-0400 BMI (Body Mass Index) 38.31 kg/m2 Monika Staley [facility] Work Phone: 11-06-2019 15:29-0400 Body Temperature 97.6 [degF] Monika Staley [facility] Work Phone: 11-06-2019 15:29-0400 Body weight 117.66 kg oMnika Staley [facility] Work Phone: 11-06-2019 [...] Start: 03-16-2025 ambulatory Carlos Cavazos OLS Faci lity:[facility] Start: 03-13-2025 ambulatory Carlos Quickros OLS Faci lity:[facility] Start: 03-12-2025 ambulatory [facility] OLS Facility:[facility] Start: 03-11-2025 ambulatory Carlos Quickros OLS Faci lity:[facility] Start: 03-09-2025 ambulatory Mahaveer kka flash OLS Facility:[facility] Start: 03-05-2025 ambulatory Mahaveer [facility] Facility:[facility] Start: 03-02-2025 ambulatory Peter Katsaros OLS Faci lity:[facility] Start: 02-26-2025 ambulatory Mahaveer kka flash OLS Facility:[facility] Start: 02-23-2025 [facility] Start: 02-19-2025 ambulatory Karon muellera OLS Facility:[facility] Start: 02-16-2025 End: 02-16-2025 ambulatory Karon Farmera OLS Facility:[facility] Start: 02-12-2025 [facility] Start: 02-12-2025 End: 02-12-2025 ambulatory Karon Farmera OLS Facility:[facility] Start: 02-09-2025 Registered Referred Carlos [facility] Start: 02-09-2025 ambulatory Carlos Cavazos OLS Faci lity:[facility] Start: 02-05-2025 [facility] Start: 02-05-2025 End: 02-05-2025 ambulatory Karon Farmera OLS Facility:[facility] Start: 02-02-2025 [facility] Start: 02-02-2025 End: 02-02-2025 ambulatory Karon Farmera OLS Facility:[facility] Start: 01-29-2025 [facility] Start: 01-29-2025 End: 01-29-2025 ambulatory Karon Farmera OLS Facility:[facility] Start: 01-26-2025 [facility] Start: 01-26-2025 End: 01-26-2025 ambulatory Karon Delacruzlla OLS Facility:[facility] Start: 01-22-2025 [facility] Start: 01-22-2025 End: 01-22-2025 ambulatory Carlaavenoe Delacruzlla OLS Facility:[facility] Start: 01-19-2025 Registered Referred Carlos Cavazos - [facility] Start: 01-19-2025 End: 01-19-2025 ambulatory Carlos Cavazos OLS Facility:[facility] Start: 01-15-2025 Registered Referred Karon casillas MD [facility] Start: 01-15-2025 End: 01-15-2025 ambulatory [facility] OLS Facility:[facility] Start: 01-12-2025 Registered Referred Karon casillas MD -[facility] Start: 01-12-2025 End: 01-12-2025 ambulatory [facility] OLS Facility:[facility] Start: 01-08-2025 Registered Referred Karon casillas MD -[facility] Start: 01-08-2025 End: 01-08-2025 ambulatory [facility] OLS Facility:[facility] Start: 01-06-2025 Registered Referred Karon casillas MD -[facility] Start: 01-06-2025 End: 01-06-2025 ambulatory [facility] OLS Facility:[facility] Start: 01-01-2025 End: 01-01-[address] Monika Staley MD Work Phone: -[facility] Start: 01-01-2025 End: 01-01-2025 Departed Referred Karon Corrales MD -[facility] Start: 01-01-2025 Registered Referred Karon casillas MD -[facility] Start: 01-01-2025 End: 01-01-2025 [facility] Start: 12-29-2024 Registered Referred Carlos Cavazos - [facility] Start: 12-29-2024 End: 12-29-2024 ambulatory Carlos Cavazos OLS Facility:[facility] Start: 12-26-2024 End: 12-26-[address] Monika Staley MD Work Phone: [facility] Start: 12-26-2024 End: 12-26-2024 Departed Referred Karon Corrales MD -[facility] Start: 12-26-2024 Registered Referred Karon casillas MD -[facility] Start: 12-26-2024 End: 12-26-2024 ambulatory Mahaveer Mukkamalla OLS Facility:[facility] Start: 12-25-2024 Registered Referred Karon casillas MD -[facility] Start: 12-24-2024 End: 12-25-2024 ambulatory Mahaveer Mukkamalla OLS Facility:[facility] Start: 12-24-2024 Registered Referred Carlos Lópezsaros - [facility] Start: 12-22-2024 ambulatory [facility] flash OLS Facility:[facility] Start: 12-22-2024 Registered Referred Karon casillas MD -[facility] Start: 12-18-2024 Registered Referred Karon casillas MD -[facility] Start: 12-18-2024 End: 12-18-2024 ambulatory Carlaaveer Princeamalla OLS Facility:[facility] Start: 12-15-2024 ambulatory [facility] OLS Facility:[facility] Start: 12-15-2024 Registered Referred Karon casillas MD -[facility] Start: 12-11-2024 Registered Referred Carlos Cavazos - [facility] Start: 12-11-2024 End: 12-11-2024 ambulatory Carlos Maribelkameron OLS Facility:[facility] Start: 12-08-2024 Registered Referred Karon casillas MD -[facility] Start: 12-08-2024 End: 12-08-2024 ambulatory Mahaveer Mukkamalla OLS Facility:[facility] Start: 12-04-2024 Registered Referred Karon casillas MD -[facility] Start: 12-04-2024 End: 12-04-2024 ambulatory Mahaveer kkamalla OLS Facility:[facility] Start: 12-02-2024 [facility]ulatory [facility] Start: 12-02-2024 Registered Referred Karon casillas MD -[facility] Start: 12-01-2024 ambulatory Carlos NOVAK Faci lity:[facility] Start: 12-01-2024 Registered Referred Carlos Cavazos - [facility] Start: 11-28-2024 Registered Referred Carlos Cavazos - [facility] Start: 11-28-2024 End: 11-28-2024 ambulatory Carlos Cavazos OLS Facility:[facility] Start: 11-27-2024 Registered Referred Karon casillas MD -[facility] Start: 11-27-2024 End: 11-27-2024 ambulatory Karon inga OLS Facility:[facility] Start: 11-24-2024 [facility]ulatory [facility] Start: 11-24-2024 Registered Referred Karon casillas MD -[facility] Start: 11-20-2024 Registered Referred Karon casillas MD -[facility] Start: 11-20-2024 End: 11-20-2024 ambulatory Karon NOVAK Facility:[facility] Start: 11-17-2024 ambulatory Shiela Luís Facili ty:[facility] Start: 11-17-2024 Registered Referred Karon casillas MD -[facility] Start: 11-13-2024 ambulatory Shiela Luís Facili ty:[facility] Start: 11-13-2024 Registered Referred Karon casillas MD -[facility] Start: 11-10-2024 ambulatory [facility] Start: 11-10-2024 Registered Referred Karon casillas MD -[facility] Start: 11-06-2024 Registered Referred Karon casillas MD -[facility] Start: 11-06-2024 End: 11-06-2024 ambulatory Karon Corrales OLS Facility:[facility] Start: 11-03-2024 End: 11-03-[address] Monika Staley MD Work Phone: [facility] Start: 11-03-2024 End: 11-03-2024 Departed Referred Carlos Maribelkameron -[facility] Start: 11-03-2024 Registered Referred Carlos Maribelkameron - [facility] Start: 11-03-2024 End: 11-03-2024 ambulatory Carlos Cavazos OLS Facility:[facility] Start: 10-30-2024 End: 10-30-[address] Monika Staley MD Work Phone: -[facility] Start: 10-30-2024 End: 10-30-2024 Departed Referred Karon Corrales MD [facility] Start: 10-30-2024 Registered Referred Karon casillas MD -[facility] Start: 10-30-2024 End: 10-30-2024 ambulatory Monika Staley Facility:[facility] Start: 10-27-2024 Registered Referred Karon casillas MD -[facility] Start: 10-27-2024 End: 10-27-2024 ambulatory Karon NOVAK Facility:[facility] Start: 10-23-2024 Registered Referred Karon casillas MD -[facility] Start: 10-23-2024 End: 10-23-2024 ambulatory Monika Staley Facility:[facility] Start: 10-20-2024 End: 10-20-[address] Monika Staley MD Work Phone: -[facility] Start: 10-20-2024 End: 10-20-2024 Departed Referred Karon Corrales MD -[facility] Start: 10-20-2024 Registered Referred Karon casillas MD -[facility] Start: 10-20-2024 End: 10-20-2024 ambulatory Karon Corrales OLS Facility:[facility] Start: 10-16-2024 ambulatory Monika Horner Luís Facili ty:[facility] Start: 10-16-2024 Registered Referred Karon casillas MD -[facility] Start: 10-13-2024 ambulatory Carlos Cavazos OLS Faci lity:[facility] Start: 10-13-2024 Registered Referred Carlos Cavazos - [facility] Start: 10-09-2024 ambulatory Shiela Luís Facili ty:[facility] Start: 10-09-2024 Registered Referred Karon casillas MD -[facility] Start: 10-06-2024 ambulatory Carlos Cavazos OLS Faci lity:[facility] Start: 10-06-2024 Registered Referred Carlos Cavazos - [facility] Start: 10-02-2024 ambulatory Shiela Luís Facili ty:[facility] Start: 10-02-2024 Registered Referred Karon casillas MD -[facility] Start: 09-30-2024 End: 09-30-[address] Monika Staley MD Work Phone: [facility] Work Phone: Start: 09-30-2024 End: 09-30-2024 Departed Referred Karon Corrales MD [facility] Start: 09-30-2024 Registered Referred Karon casillas MD -[facility] Start: 09-30-2024 End: 09-30-2024 ambulatory Karon NOVAK Facility:[facility] Start: 09-25-2024 ambulatory Karon vidales OLS Facility:[facility] Start: 09-25-2024 [facility] Start: 09-22-2024 End: 09-22-[address] Monika Staley MD Work Phone: [facility] Start: 09-22-2024 End: 09-22-2024 Departed Referred Karon Corrales MD -[facility] Start: 09-22-2024 Registered Referred Karon casillas MD -[facility] Start: 09-22-2024 End: 09-22-2024 ambulatory Karon NOVAK Facility:[facility] Start: 09-18-2024 End: 09-18-[address] Monika Staley MD Work Phone: [facility] Start: 09-18-2024 End: 09-18-2024 Departed Referred Karon Corrales MD -[facility] Start: 09-18-2024 Registered Referred Karon casillas MD -[facility] Start: 09-18-2024 End: 09-18-2024 ambulatory Karon Corrales OLS Facility:[facility] Start: 09-15-2024 End: 09-15-[address] Monika Staley MD Work Phone: [facility] Work Phone: Start: 09-15-2024 End: 09-15-2024 Departed Referred Carlos Cavazos -[facility] Start: 09-15-2024 Registered Referred Carlos Cavazos - [facility] Start: 09-15-2024 End: 09-15-2024 ambulatory Carlos Cavazos OLS Facility:[facility] Start: 09-11-2024 ambulatory Karon vidales OLS Facility:[facility] Start: 09-11-2024 Registered Referred Karon casillas MD [facility] Start: 09-08-2024 End: 09-08-[address] Monika Staley MD Work Phone: [facility] Work Phone: Start: 09-08-2024 End: 09-08-2024 Departed Referred Karon Corrales MD -[facility] Start: 09-08-2024 Registered Referred Karon casillas MD -[facility] Start: 09-08-2024 End: 09-08-2024 ambulatory Karon NOVAK Facility:[facility] Start: 09-04-2024 End: 09-04-2024 Departed Referred Carlos Maribelsaros -[facility] Start: 09-04-2024 Registered Referred Carlos Maribelsaros - [facility] Start: 09-04-2024 End: 09-04-2024 ambulatory Carlos NOVAK Facility:[facility] Start: 09-01-2024 End: 09-01-[address] Monika Staley MD Work Phone: [facility] Work Phone: Start: 09-01-2024 End: 09-01-2024 Departed Referred Carlos Lópezsaros -[facility] Start: 09-01-2024 Registered Referred Carlos Maribelsaros - [facility] Start: 09-01-2024 End: 09-01-2024 ambulatory Carlos NOVAK Facility:[facility] Start: 08-28-2024 End: 08-28-[address] Monika Staley MD Work Phone: [facility] Work Phone: Start: 08-28-2024 End: 08-28-2024 Departed Referred Carlos Lópezsaros -[facility] Start: 08-28-2024 Registered Referred Carlos Lópezsaros - [facility] Start: 08-28-2024 End: 08-28-2024 ambulatory Carlos NOVAK Facility:[facility] Start: 08-25-2024 End: 08-25-[address] Monika Staley MD Work Phone: [facility] Work Phone: Start: 08-25-2024 End: 08-25-2024 Departed Referred Karon Corrales MD -[facility] Start: 08-25-2024 Registered Referred Karon casillas MD -[facility] Start: 08-25-2024 End: 08-25-2024 ambulatory Carlaamber Corrales [facility] [facility] Start: 08-21-2024 End: 08-21-[address] Monika Staley MD Work Phone: [facility] Work Phone: Start: 08-21-2024 End: 08-21-2024 Departed Referred Karon Corrales MD -[facility] Start: 08-21-2024 Registered Referred Karon casillas MD -[facility] Start: 08-21-2024 End: 08-21-2024 ambulatory Carlaamber NOVAK Facility:[facility] Start: 08-18-2024 End: 08-18-[address] Monika Staley MD Work Phone: [facility] Work Phone: Start: 08-18-2024 End: 08-18-2024 Departed Referred Karon Corrales MD -[facility] Start: 08-18-2024 Registered Referred Karon casillas [facility] -[facility] Start: 08-18-2024 End: 08-18-2024 ambulatory Carlaamber Corrales OLS Facility:[facility] Start: 08-14-2024 End: 08-14-[address] Monika Staley MD Work Phone: [facility] Work Phone: Start: 08-14-2024 End: 08-14-2024 Departed Referred Karon Corrales [facility] -[facility] Start: 08-14-2024 Registered Referred Karon casillas MD -[facility] Start: 08-14-2024 End: 08-14-2024 ambulatory Karon NOVAK Facility:[facility] Start: 08-11-2024 End: 08-11-2024 Departed Referred Karon Corrales [facility] -[facility] Start: 08-11-2024 Registered Referred Karon casillas [facility] -[facility] Start: 08-11-2024 End: 08-11-2024 ambulatory Karon NOVAK Facility:[facility] Start: 08-07-2024 End: 08-07-2024 Departed Referred Carlos Lópezsaviri -[facility] Start: 08-07-2024 Registered Referred Carlos Lópezsaviri - [facility] Start: 08-07-2024 End: 08-07-2024 ambulatory Carlos Cavazos OLS Facility:[facility] Start: 08-04-2024 End: 08-04-[address] Monika Staley MD Work Phone: [facility] Work Phone: Start: 08-04-2024 End: 08-04-2024 Departed Referred Carlos L[facility]pezsaviri -[facility] Start: 08-04-2024 Registered Referred Carlos L[facility]pezsaros - [facility] Start: 08-04-2024 End: 08-04-2024 ambulatory Carlos NOVAK Facility:[facility] Start: 07-31-2024 End: 07-31-[address] Monika Staley MD Work Phone: [facility] Work Phone: Start: 07-31-2024 End: 07-31-2024 Departed Referred Karon Corrales MD -[facility] Start: 07-31-2024 Registered Referred Karon casillas MD -[facility] Start: 07-31-2024 End: 07-31-2024 ambulatory Karon NOVAK Facility:[facility] Start: 07-28-2024 End: 07-28-[address] Monika Staley MD Work Phone: [facility] Work Phone: Start: 07-28-2024 End: 07-28-2024 Departed Referred Karon Corrales MD -[facility] Start: 07-28-2024 Registered Referred Karon casillas MD -[facility] Start: 07-28-2024 End: 07-28-2024 ambulatory Karon NOVAK Facility:[facility] Start: 07-25-2024 End: 07-25-[address] Monika Staley MD Work Phone: [facility] Work Phone: Start: 07-25-2024 End: 07-25-2024 Departed Referred Carlos Cavazos -[facility] Start: 07-25-2024 Registered Referred Carlos Reeder [facility] Start: 07-24-2024 End: 07-25-[address] Monika Staley MD Work Phone: [facility] Work Phone: Start: 07-24-2024 End: 07-24-2024 Departed Referred Karon Corrales MD -[facility] Start: 07-24-2024 Registered Referred Karon casillas MD -[facility] Start: 07-24-2024 End: 07-24-2024 ambulatory Karon NOVAK Facility:[facility] Start: 07-21-2024 End: 07-21-[address] Monika Staley MD Work Phone: [facility] Work Phone: Start: 07-21-2024 End: 07-21-2024 Departed Referred Karon Corrales MD -[facility] Start: 07-21-2024 Registered Referred Karon casillas MD -[facility] Start: 07-21-2024 End: 07-21-2024 ambulatory Karon NOVAK Facility:[facility] Start: 07-17-2024 End: 07-17-[address] Monika Staley MD Work Phone: [facility] Work Phone: Start: 07-17-2024 End: 07-17-2024 Departed Referred Karon Corrales MD -[facility] Start: 07-17-2024 Registered Referred Karon casillas MD -[facility] Start: 07-17-2024 End: 07-17-2024 ambulatory Karon NOVAK Facility:[facility] Start: 07-14-2024 End: 07-14-[address] Monika Staley MD Work Phone: [facility] Work Phone: Start: 07-14-2024 End: 07-14-2024 Departed Referred Carlos Cavazos -[facility] Start: 07-14-2024 Registered Referred Carlos Lópezsaros - [facility] Start: 07-14-2024 End: 07-14-2024 ambulatory Carlos Cavazos OLS Facility:[facility] Start: 07-11-2024 End: 07-11-[address] Monika Staley MD Work Phone: [facility] Work Phone: Start: 07-11-2024 End: 07-11-2024 Departed Referred Carlos Lópezsaros -[facility] Start: 07-11-2024 Registered Referred Carlos Lópezsaros - [facility] Start: 07-11-2024 End: 07-11-2024 ambulatory Carlos Cavazos OLS Facility:[facility] Start: 07-07-2024 End: 07-07-[address] Monika Staley MD Work Phone: [facility] Work Phone: Start: 07-07-2024 End: 07-07-2024 Departed Referred Karon Corrales [facility] -[facility] Start: 07-07-2024 [facility] Start: 07-07-2024 End: 07-07-2024 ambulatory Karon NOVAK Facility:[facility] Start: 07-03-2024 End: 07-03-[address] Monika Staley MD Work Phone: [facility] Work Phone: Start: 07-03-2024 End: 07-03-2024 Departed Referred Kvng Crisostomo MD -[facility] Start: 07-03-2024 Registered Referred Kvng Crisostomo MD -[facility] Start: 07-03-2024 End: 07-03-2024 ambulatory Kvng NOVAK Facility:[facility] Start: 06-30-2024 End: 06-30-[address] Monika Staley MD Work Phone: [facility] Work Phone: Start: 06-30-2024 End: 06-30-2024 Departed Referred Kvng Crisostomo MD -[facility] Start: 06-30-2024 Registered Referred Kvng Crisostomo MD -[facility] Start: 06-30-2024 End: 06-30-2024 ambulatory Kvng NOVAK Facility:[facility] Start: 06-26-2024 ambulatory Kvng NOVAK Fac ility:[facility] Start: 06-26-2024 Registered Referred Kvng Crisostomo MD -[facility] Start: 06-23-2024 End: 06-23-[address] Monika Staley MD Work Phone: [facility] Work Phone: Start: 06-23-2024 End: 06-23-2024 Departed Referred Carlos [facility] Start: 06-23-2024 Registered Referred Carlos Cavazos - [facility] Start: 06-23-2024 End: 06-23-2024 ambulatory Carlos NOVAK Facility:[facility] Start: 06-19-2024 End: 06-19-[address] Monika Staley MD Work Phone: [facility] Work Phone: Start: 06-19-2024 End: 06-19-2024 Departed Referred Kvng Crisostomo MD -[facility] Start: 06-19-2024 Registered Referred Kvng Crisostomo MD -[facility] Start: 06-19-2024 End: 06-19-2024 ambulatory Monika Staley Facility:[facility] Start: 06-16-2024 End: 06-16-[address] Monika Staley MD Work Phone: [facility] Work Phone: Start: 06-16-2024 End: 06-16-2024 Departed Referred Kvng Crisostomo MD -[facility] Start: 06-16-2024 Registered Referred Kvng Crisostomo MD -[facility] Start: 06-16-2024 End: 06-16-2024 ambulatory Monika Staley Facility:[facility] Start: 06-12-2024 End: 06-12-[address] Monika Staley MD Work Phone: [facility] Work Phone: Start: 06-12-2024 End: 06-12-2024 Departed Referred Kvng Crisostomo MD -[facility] Start: 06-12-2024 Registered Referred Kvng Crisostomo MD -[facility] Start: 06-12-2024 End: 06-12-2024 ambulatory Kvng NOVAK Facility:[facility] Start: 06-09-2024 End: 06-09-[address] Monika Staley MD Work Phone: [facility] Work Phone: Start: 06-09-2024 End: 06-09-2024 Departed Referred Carlos Cavazos -[facility] Start: 06-09-2024 Registered Referred Carlos Cavazos - [facility] Start: 06-09-2024 End: 06-09-2024 ambulatory Monika Staley Facility:[facility] Start: 06-05-2024 End: 06-05-[address] Monika Staley MD Work Phone: [facility] Work Phone: Start: 06-05-2024 End: 06-05-2024 Departed Referred Kvng rCisostomo MD -[facility] Start: 06-05-2024 End: 06-05-2024 ambulatory Kvng NOVAK Facility:[facility] Start: 06-02-2024 End: 06-02-[address] Monika Staley MD Work Phone: [facility] Work Phone: Start: 06-02-2024 End: 06-02-2024 Departed Referred Kvng Crisostomo MD -[facility] Start: 06-02-2024 Registered Referred Kvng Crisostomo MD -[facility] Start: 06-02-2024 End: 06-02-2024 ambulatory Kvng NOVAK Facility:[facility] Start: 05-29-2024 End: 05-29-[address] Monika Staley MD Work Phone: [facility] Work Phone: Start: 05-29-2024 End: 05-29-2024 Departed Referred Kvng Crisostomo MD -[facility] Start: 05-29-2024 Registered Referred Kvng Crisostomo MD -[facility] Start: 05-29-2024 End: 05-29-2024 ambulatory Kvng NOVAK Facility:[facility] Start: 05-26-2024 End: 05-26-[address] Monika Staley MD Work Phone: [facility] Work Phone: Start: 05-26-2024 End: 05-26-2024 Departed Referred Carlos Cavazos -[facility] Start: 05-26-2024 Registered Referred Carlos Cavazos - [facility] Start: 05-26-2024 End: 05-26-2024 ambulatory Carlos NOVAK Facility:[facility] Start: 05-22-2024 ambulatory Kvng NOVAK Fac ility:[facility] Start: 05-22-2024 [facility] Start: 05-20-2024 End: 05-20-2024 Departed [facility] Start: 05-19-2024 End: 05-20-2024 ambulatory Kvng NOVAK Facility:[facility] Start: 05-19-2024 [facility] Start: 05-15-2024 End: 05-15-2024 Departed [facility] Start: 05-15-2024 End: 05-15-2024 ambulatory Kvng NOVAK Facility:[facility] Start: 05-12-2024 End: 05-12-2024 [facility] Start: 05-12-2024 End: 05-12-2024 ambulatory Carlos NOVAK Facility:[facility] Start: 05-09-2024 End: 05-09-2024 [facility] Start: 05-09-2024 End: 05-09-2024 ambulatory Kvng NOVAK Facility:[facility] Start: 05-08-2024 End: 05-08-2024 Departed Referred Babbaljeet Crisostomo MD -[facility] Start: 05-08-2024 End: 05-08-2024 ambulatory Elizabethmilton Andressa NOVAK Facility:[facility] Start: 05-05-2024 End: 05-05-2024 Departed Referred Kvng Crisostomo MD -[facility] Start: 05-05-2024 End: 05-05-2024 ambulatory Kvng NOVAK Facility:[facility] Start: 05-01-2024 End: 05-01-2024 Departed Referred Kvng Crisostomo MD -[facility] Start: 05-01-2024 End: 05-01-2024 ambulatory Kvng NOVAK Facility:[facility] Start: 04-28-2024 End: 04-28-2024 Departed Referred Carlos Cavazos -[facility] Start: 04-28-2024 End: 04-28-2024 ambulatory Carlos NOVAK Facility:[facility] Start: 04-24-2024 End: 04-24-2024 Departed Referred Kvng Crisostomo MD -[facility] Start: 04-24-2024 End: 04-24-2024 ambulatory Vicentesigifredokarolmilton Andressa NOVAK Facility:[facility] Start: 04-21-2024 End: 04-21-2024 Departed Referred Carlos Cavazos -[facility] Start: 04-21-2024 End: 04-21-2024 ambulatory Carlos NOVAK Facility:[facility] Start: 04-17-2024 ambulatory Vicenterocio Andressa NOVAK Fac ility:[facility] Start: 04-17-2024 Registered Referred Kvng Crisostomo MD -[facility] Start: 04-14-2024 ambulatory Vicenterocio Andressa NOVAK Fac ility:[facility] Start: 04-14-2024 Registered Referred Kvng Crisostomo MD -[facility] Start: 04-10-2024 End: 04-10-2024 Departed Referred Kvng Crisostomo MD -[facility] Start: 04-10-2024 End: 04-10-2024 ambulatory Kvng Jonesur OLS Facility:[facility] Start: 04-07-2024 End: 04-07-2024 Departed Referred Carlos Cavazos -[facility] Start: 04-07-2024 End: 04-07-2024 ambulatory Carlos NOVAK Facility:[facility] Start: 04-04-2024 ambulatory Avisgerson Andressa NOVAK Fac ility:[facility] Start: 04-04-2024 Registered Referred Kvng Crisostomo MD -[facility] Start: 03-31-2024 End: 03-31-2024 Departed Referred Cralos Cavazos -[facility] Start: 03-31-2024 End: 03-31-2024 ambulatory Carlos NOVAK Facility:[facility] Start: 03-27-2024 End: 03-27-2024 [facility]arted [facility] Start: 03-27-2024 End: 03-27-2024 ambulatory [facility] Facility:[facility] Start: 03-24-2024 End: 03-24-2024 Departed Referred Kvng Crisostomo MD -[facility] Start: 03-24-2024 End: 03-24-2024 ambulatory Kvng NOVAK Facility:[facility] Start: 03-20-2024 End: 03-20-2024 Departed Referred [facility] Start: 03-20-2024 End: 03-20-2024 ambulatory [facility] Facility:[facility] Start: 03-19-2024 End: 03-19-2024 Departed Referred Kvng Crisostomo MD -[facility] Start: 03-19-2024 End: 03-19-2024 ambulatory Kvng NOVAK Facility:[facility] Start: 03-18-2024 End: 03-18-2024 Departed Referred [facility] Start: 03-17-2024 End: 03-17-2024 Departed Referred [facility] Start: 03-14-2024 End: 03-14-2024 Departed Referred Carlos Cavazos [facility] Start: 03-13-2024 End: 03-13-2024 Departed Referred [facility] Start: 09-13-2023 End: 09-13-2023 ambulatory [facility] Start: 09-13-2023 End: 09-13-2023 Office outpatient visit 25 minutes Rebecca Buck MD Work Phone: [employer] [facility] Comment on above: Left flank pain (Christina magui Dx); BPH with urinary obstruction; History of kidney stones Start: 09-06-2023 End: 09-07-2023 ambulatory [facility] Start: 09-06-2023 End: 09-06-2023 Subsequent hospital visit by physician Rebecca Buck MD Work Phone: [facility] Imaging Comment on above: Left flank pain; Calculus of ureter Start: 08-31-2023 [facility] Start: 08-31-2023 [facility] Start: 08-21-2023 Telephone encounter Rebecca Buck MD Work Phone: [facility] Clinical Communication Comment on above: CT appt Boaz advice Start: 08-21-2023 Registered Referred [facility] Start: 08-13-2023 End: 08-13-2023 ambulatory [facility] Start: 08-13-2023 End: 08-13-2023 Office outpatient new 45 minutes Rebecca Buck MD Work Phone: [employer] [facility] Comment on above: Left flank pain (Christina magui Dx); Calculus of ureter; Disease of prostate; BPH with urinary obstruction Start: 08-03-2023 End: 08-03-2023 ambulatory [facility] Work Phone: Start: 08-03-2023 End: 08-03-2023 Departed Referred [facility] Start: 07-20-2023 End: 07-20-2023 ambulatory [facility] Work Phone: Start: 07-20-2023 End: 07-20-2023 Departed Referred [facility] Start: 07-20-2023 Registered Referred [facility] Start: 07-18-2023 End: 07-18-2023 ambulatory [facility] Work Phone: Start: 07-18-2023 End: 07-18-2023 [facility] Start: 07-18-[address] [facility] Start: 07-16-2023 End: 07-16-2023 ambulatory [facility] Work Phone: Start: 07-16-2023 End: 07-16-2023 [facility] Start: 07-16-2023 Registered Referred [facility] Start: 07-13-2023 End: 07-13-2023 ambulatory [facility] Work Phone: Start: 07-13-2023 End: 07-13-2023 [facility] Start: 07-13-2023 Registered Referred [facility] Start: 07-12-2023 End: 07-12-2023 ambulatory [facility] Work Phone: Start: 07-12-2023 End: 07-12-2023 [facility] Start: 07-12-2023 Registered Referred [facility] [place] Start: 07-05-2023 End: 07-05-2023 ambulatory [facility] Work Phone: Start: 07-05-2023 End: 07-05-2023 [facility] Start: 07-05-[address] [facility] Start: 07-02-2023 [facility] Start: 06-28-2023 End: 06-28-2023 ambulatory [facility] Work Phone: Start: 06-28-2023 End: 06-28-2023 [facility] Start: 06-28-2023 [facility] Start: 06-25-2023 Telephone encounter Rebecca Buck MD Work Phone: [facility] [facility] Start: 06-25-2023 End: 06-25-2023 ambulatory [facility] Work Phone: Start: 06-25-2023 End: 06-25-2023 [facility] Start: 06-25-2023 [facility] Start: 06-21-2023 End: 06-21-2023 ambulatory [facility] Work Phone: Start: 06-21-2023 End: 06-21-2023 [facility] Start: 06-21-[address] [facility] Start: 06-13-2023 End: 06-13-2023 ambulatory [facility] Work Phone: Start: 06-13-2023 End: 06-13-2023 [facility] Start: 06-06-2023 End: 06-06-2023 ambulatory [facility] Work Phone: Start: 06-06-2023 End: 06-06-2023 [facility] Start: 06-06-[address] [facility] Start: 05-23-2023 End: 05-23-2023 ambulatory [facility] Work Phone: Start: 05-23-2023 End: 05-23-2023 [facility] Start: 05-09-2023 End: 05-09-2023 [facility] Start: 05-09-[address] [facility] Start: 04-23-2023 End: 04-23-2023 [facility] Start: 04-09-2023 End: 04-09-2023 ambulatory [facility] Work Phone: Start: 04-09-2023 End: 04-09-2023 [facility] Start: 04-09-[address] [facility] Start: 04-02-2023 End: 04-02-2023 ambulatory [facility] Work Phone: Start: 04-02-2023 End: 04-02-2023 [facility] Start: 04-02-[address] [facility] Start: 03-26-2023 End: 03-26-2023 ambulatory [facility] Work Phone: Start: 03-26-2023 End: 03-26-2023 [facility] Start: 03-26-[address] [facility] Start: 03-22-2023 End: 03-22-2023 ambulatory [facility] Work Phone: Start: 03-22-2023 End: 03-22-2023 [facility] Start: 03-22-[address] [facility] Start: 03-08-2023 End: 03-08-2023 ambulatory [facility] Work Phone: Start: 03-08-2023 End: 03-08-2023 [facility] Start: 02-22-2023 End: 02-22-2023 ambulatory [facility] Work Phone: Start: 02-22-2023 End: 02-22-2023 [facility] Start: 02-22-2023 Registered Referred [facility] Start: 02-15-2023 End: 02-15-2023 ambulatory [facility] Work Phone: Start: 02-15-2023 End: 02-15-2023 Departed Referred [facility] Start: 02-15-2023 Registered Referred [facility] [place] Start: 02-08-2023 End: 02-08-2023 ambulatory [facility] Work Phone: Start: 02-08-2023 End: 02-08-2023 Departed Referred [facility] Start: 01-31-2023 End: 01-31-2023 ambulatory [facility] Work Phone: Start: 01-31-2023 End: 01-31-2023 Departed Referred [facility] Start: 01-31-2023 Registered Referred [facility] [place] Start: 01-29-2023 End: 01-29-2023 [facility] Start: 01-29-2023 Registered Referred [facility] Start: 01-26-2023 End: 01-26-2023 Departed [facility] Start: 01-26-2023 Registered Referred [facility] Start: 01-24-2023 End: 01-24-2023 Departed [facility] Start: 01-24-2023 Registered Referred [facility] Start: 01-22-2023 End: 01-22-2023 ambulatory [facility] Work Phone: Start: 01-22-2023 End: 01-22-2023 [facility] Start: 01-22-[address] [facility] Start: 01-10-2023 End: 01-10-2023 ambulatory [facility] Work Phone: Start: 01-10-2023 End: 01-10-2023 [facility] Start: 01-10-[address] [facility] Start: 12-27-2022 End: 12-27-2022 ambulatory [facility] Work Phone: Start: 12-27-2022 End: 12-27-2022 [facility] Start: 12-27-[address] [facility] Start: 12-21-2022 End: 12-21-2022 ambulatory [facility] Work Phone: Start: 12-21-2022 End: 12-21-2022 [facility]ed [facility] Start: 12-21-[address] [facility] Start: 12-14-2022 End: 12-14-2022 ambulatory [facility] Work Phone: Start: 12-14-2022 End: 12-14-2022 [facility] Start: 12-14-[address] [facility] Start: 12-07-2022 End: 12-07-2022 ambulatory [facility] Work Phone: Start: 12-07-2022 End: 12-07-2022 [facility] Start: 12-07-2022 [facility] Start: 11-24-2022 End: 11-24-2022 ambulatory [facility] Work Phone: Start: 11-24-2022 End: 11-24-2022 Departed Referred [facility] Start: 11-24-2022 [facility] Start: 11-23-2022 End: 11-23-2022 ambulatory [facility] Work Phone: Start: 11-23-2022 End: 11-23-2022 [facility] Start: 11-23-2022 [place] [place] [facility] Start: 11-22-2022 End: 11-22-2022 ambulatory [facility] Work Phone: Start: 11-22-2022 End: 11-22-2022 [facility] Start: 11-22-2022 [facility] Start: 11-09-2022 End: 11-09-2022 ambulatory [facility] Work Phone: Start: 11-09-2022 End: 11-09-2022 [facility] Start: 11-09-2022 [facility] Start: 10-26-2022 End: 10-26-2022 [facility] Start: 10-26-2022 [facility] Start: 10-12-2022 End: 10-12-2022 ambulatory [facility] Work Phone: Start: 10-12-2022 End: 10-12-2022 [facility] Start: 10-12-2022 [facility]istered [facility] Start: 10-05-2022 End: 10-05-2022 [facility] Start: 10-05-2022 Registered Referred [facility] Start: 09-28-2022 End: 09-28-2022 ambulatory [facility] Work Phone: Start: 09-28-2022 End: 09-28-2022 [facility] Start: 09-14-2022 End: 09-14-2022 [facility] Start: 08-31-2022 End: 08-31-2022 [facility]ed [facility] Start: 08-31-[address] [facility] Start: 08-23-2022 End: 08-23-2022 ambulatory [facility] Work Phone: Start: 08-23-2022 End: 08-23-2022 [facility] Start: 08-23-[address] [facility] Start: 08-17-2022 End: 08-17-2022 ambulatory [facility] Work Phone: Start: 08-17-2022 End: 08-17-2022 [facility] Start: 08-17-2022 Registered Referred [facility] Start: 08-14-2022 End: 08-14-2022 ambulatory [facility] Work Phone: Start: 08-14-2022 End: 08-14-2022 [facility] Start: 08-14-[address] [facility] Start: 07-31-2022 End: 07-31-2022 ambulatory [facility] Work Phone: Start: 07-31-2022 End: 07-31-2022 Dep[facility]ed [facility] Start: 07-31-2022 Registered Referred [facility] Start: 07-24-2022 End: 07-24-2022 ambulatory [facility] Work Phone: Start: 07-24-2022 End: 07-24-2022 Dep[facility]ed [facility] Start: 07-24-2022 Registered Referred [facility] Start: 07-20-2022 End: 07-20-2022 [facility] Start: 07-20-[address] [facility] Start: 07-17-2022 End: 07-17-2022 [facility] Start: 07-17-2022 Registered Referred [facility] Start: 07-11-2022 Registered Referred [facility] Start: 07-10-2022 End: 07-10-2022 ambulatory [facility] Work Phone: Start: 07-10-2022 End: 07-10-2022 Departed [facility] Start: 07-10-2022 Registered Referred [facility] Start: 07-03-2022 End: 07-03-2022 ambulatory [facility] Work Phone: Start: 07-03-2022 End: 07-03-2022 [facility] Start: 07-03-[address] [facility] Start: 06-27-2022 End: 06-27-2022 ambulatory [facility] Work Phone: Start: 06-27-2022 End: 06-27-2022 [facility] Start: 06-27-[address] [facility] Start: 06-13-2022 End: 06-13-2022 ambulatory [facility] Work Phone: Start: 06-13-2022 End: 06-13-2022 [facility] Start: 06-13-[address] [facility] Start: 06-06-2022 End: 06-06-2022 ambulatory [facility] Work Phone: Start: 06-06-2022 End: 06-06-2022 [facility] Start: 06-06-[address] [facility] Start: 05-30-2022 End: 05-30-2022 ambulatory [facility] Work Phone: Start: 05-30-2022 End: 05-30-2022 [facility] Start: 05-30-[address] [facility] Start: 05-16-2022 End: 05-16-2022 ambulatory [facility] Work Phone: Start: 05-16-2022 End: 05-16-2022 [facility] Start: 05-16-[address] [facility] Start: 05-02-2022 End: 05-02-2022 ambulatory [facility] Work Phone: Start: 05-02-2022 End: 05-02-2022 [facility] Start: 05-02-[address] [facility] Start: 04-27-2022 End: 04-27-2022 ambulatory [facility] Work Phone: Start: 04-27-2022 End: 04-27-2022 Departed [facility] Start: 04-27-2022 Registered Referred [facility] Start: 04-26-2022 End: 04-26-2022 ambulatory [facility] Work Phone: Start: 04-26-2022 End: 04-26-2022 Departed [facility] Start: 04-11-2022 End: 04-11-2022 ambulatory [facility] Work Phone: Start: 04-11-2022 End: 04-11-2022 Departed [facility] Start: 03-28-2022 End: 03-28-2022 Departed [facility] Start: 03-28-2022 Registered Referred [facility] Start: 03-23-2022 End: 03-23-2022 Departed [facility] Start: 03-23-2022 Registered Referred [facility] Start: 03-16-2022 End: 03-16-2022 ambulatory [facility] Work Phone: Start: 03-16-2022 End: 03-16-2022 Departed [facility] Start: 03-16-2022 Registered Referred [facility] Start: 03-09-2022 End: 03-09-2022 ambulatory [facility] Work Phone: Start: 03-09-2022 End: 03-09-2022 [facility] Start: 03-09-2022 Registered Referred [facility] Start: 03-06-2022 End: 03-06-2022 ambulatory [facility] Work Phone: Start: 03-06-2022 End: 03-06-2022 [facility] Start: 03-06-2022 [facility] Start: 03-02-2022 End: 03-03-2022 Emergency department patient visit UNKNOWN PROVIDER [facility] Start: 03-02-2022 End: 03-02-2022 Emergency department patient visit Lanette Munguia DO Work Phone: [facility] Emergency Dept Comment on above: Fall, initial encoun ter (Primary Dx); Anticoagulated Start: 02-20-2022 End: 02-20-2022 Departed Referred [facility] Start: 02-20-2022 Registered Referred [facility] Start: 02-13-2022 End: 02-13-2022 ambulatory [facility] Work Phone: Start: 02-13-2022 End: 02-13-2022 Departed Referred [facility] Start: 02-13-2022 [facility] Start: 02-06-2022 End: 02-06-2022 ambulatory [facility] Work Phone: Start: 02-06-2022 End: 02-06-2022 [facility] Start: 02-06-2022 [facility] Start: 01-30-2022 End: 01-30-2022 [facility] Start: 01-30-2022 [facility] Start: 01-26-2022 End: 01-26-2022 ambulatory [facility] Work Phone: Start: 01-26-2022 End: 01-26-2022 [facility] Start: 01-26-2022 [facility] Start: 01-19-2022 End: 01-19-2022 ambulatory [facility] Work Phone: Start: 01-19-2022 End: 01-19-2022 [facility] Start: 01-19-[address] [facility] Start: 01-17-2022 ambulatory [facility] Start: 01-10-2022 [facility] Start: 01-10-2022 End: 01-10-2022 ambulatory [facility] Work Phone: Start: 01-10-2022 End: 01-10-2022 [facility]ed [facility] Start: 01-10-[address] [facility] Start: 01-06-2022 AUDIT Monika Elias rt Work Phone: [facility] Work Phone: Start: 01-05-2022 End: 01-05-2022 [facility]ed [facility] Start: 01-05-[address] [facility] Start: 12-30-2021 End: 12-30-2021 [facility]ed [facility] Start: 12-30-[address] [facility] Start: 12-28-2021 End: 12-28-2021 ambulatory [facility] Work Phone: Start: 12-28-2021 End: 12-28-2021 [facility]ed [facility] Start: 12-28-[address] [facility] Start: 12-26-2021 End: 12-26-2021 ambulatory [facility] Work Phone: Start: 12-26-2021 End: 12-26-2021 [facility]ed [facility] Start: 12-26-2021 Registered Referred [facility] Start: 12-22-2021 End: 12-22-2021 ambulatory [facility] Work Phone: Start: 12-22-2021 End: 12-22-2021 Departed Referred [facility] Start: 12-22-2021 Registered Referred [facility] Start: 12-22-2021 End: 12-22-2021 [facility] Start: 12-21-2021 End: 12-22-2021 Emergency department patient visit Sharon Olivia MD Work Phone: [facility] Emergency Dept Comment on above: Heel ulceration, lef t, with unspecified severity (HCC) (Primary Dx) Start: 12-19-2021 End: 12-19-2021 ambulatory [facility] Work Phone: Start: 12-19-2021 End: 12-19-2021 Departed Referred [facility] Start: 12-19-2021 Registered Referred [facility] Start: 12-12-2021 End: 12-12-2021 ambulatory [facility] Work Phone: Start: 12-12-2021 End: 12-12-2021 Departed Referred [facility] Start: 12-12-2021 Registered Referred [facility] Start: 12-08-2021 End: 12-08-2021 ambulatory [facility] Work Phone: Start: 12-08-2021 End: 12-08-2021 Departed Referred [facility] Start: 12-08-2021 Registered Referred [facility] Start: 12-05-2021 End: 12-05-2021 ambulatory [facility] Work Phone: Start: 12-05-2021 End: 12-05-2021 [facility] Start: 12-05-[address] [facility] Start: 12-01-2021 End: 12-01-2021 [facility] Start: 12-01-[address] [facility] Start: 11-28-2021 End: 11-28-2021 [facility] Start: 11-28-[address] [facility] Start: 11-25-2021 Rx Renewal Monika Elias rt Work Phone: [facility] Work Phone: Start: 11-23-2021 End: 11-23-2021 Departed [facility] Start: 11-23-[address] [facility] Start: 11-22-2021 End: 11-22-2021 [facility] Start: 11-22-[address] [facility] Start: 11-21-2021 End: 11-21-2021 [facility]ed [facility] Start: 11-15-2021 AUDIT Monika Elias rt Work Phone: [facility] Work Phone: Start: 11-14-2021 End: 11-14-2021 [facility]ed [facility] Start: 11-14-[address] [facility] Start: 11-08-2021 End: 11-08-2021 [facility]ed [facility] Start: 11-08-[address] [facility] Start: 11-04-2021 End: 11-04-2021 Departed Referred [facility] Start: 11-04-2021 Registered Referred [facility] Start: 10-31-2021 End: 11-01-2021 Emergency department patient visit UNKNOWN PROVIDER [facility] Start: 10-31-2021 End: 11-01-2021 Emergency department patient visit Dante Kim MD Work Phone: [facility] Emergency Dept Comment on above: Other fatigue (Prima ry Dx) Start: 10-31-2021 End: 10-31-2021 Departed Referred [facility] Start: 10-21-2021 End: 10-29-2021 Evaluation and management of inpatient UNKNOWN PROVIDER [facility] Start: 10-21-2021 End: 10-29-2021 Evaluation and management of inpatient Lisa Michelle DO Work Phone: [facility] Comment on above: Leg swelling (Primar y Dx); Acute deep vein thrombosis (DVT) of proximal vein of lower extremity, unspecified laterality (HCC) Start: 10-20-2021 End: 10-20-2021 Departed Referred [facility] Start: 10-17-2021 Telephone encounter Nicole davis MD Work Phone: [facility] Comment on above: Missed Appointment Start: 09-19-2021 End: 09-19-2021 Departed Referred [facility] Start: 11-02-2020 AUDIT Monika Elias rt Work Phone: [facility] Work Phone: Start: 10-27-2020 AUDIT Monika Elias rt Work Phone: [facility] Work Phone: Start: 07-13-2020 Patient encounter procedure Monika Staley [facility] Work Phone: Start: 04-13-2020 Patient encounter procedure Wing Ritter [facility] Work Phone: Start: 04-07-2020 Patient encounter procedure Wing Ritter [facility] Work Phone: Start: 03-18-2020 Patient encounter procedure Wing Ritter [facility] Work Phone: Start: 01-20-2020 Patient encounter procedure Monika Staley MD RN-Mvvufcodsl-Fqjsh Work Phone: Start: 11-13-2019 End: 11-13-2019 Subsequent hospital visit by physician [facility] Comment on above: Non-pressure chronic ulcer left lower leg, 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] Start: 11-06-2019 Patient encounter procedure Monika Staley MD TT-Pqgdoqveqz-Dxwpr Work Phone: Start: 06-18-2019 End: 06-18-2019 Subsequent [...] culture Start: 03-02-2022 Comprehensive metabolic panel Lanette Mnuguia DO Work Phone: Start: 03-02-2022 Ct head/brain [...] Start: 10-26-2021 Electroencephalogram w/rec awake&asleep Sarina Pineda [employer]ITY INVESTIGATOR - [employer] Work Phone: Start: 10-26-2021 Ct head/brain w/o co ntrast material Sarina Pineda SECURITY INVESTIGATOR - [employer] MECH[employer]IC Work Phone: Start: 10-26-2021 Prothrombin time Andres Sheridan MD Work Phone: Start: 10-25-2021 Speech and language therapy regime Sarina Pineda SECURITY INVESTIGATOR - [employer] MECH[employer] Work Phone: Start: 10-25-2021 Prothrombin time Andres [...] count reticulo cyte automated Ellen Massey Niesha SECURITY INVESTIGATOR - [employer] MECH[employer]IC Work Phone: Start: 10-21-2021 C-reactive protein Jax Scherer SECURITY INVESTIGATOR - [employer]CH[employer]IC Work Phone: Start: 10-21-2021 Non-invas physiologi c std extremity art 2 level Shruthi Malik SECURITY INVESTIGATOR - [employer] Work Phone: Start: 10-21-2021 Radex calcaneus mini mum 2 views Shruthi Malik SECURITY INVESTIGATOR - [employer] MECH[employer] Work Phone: Start: 10-21-2021 Dup-scan xtr veins [...] men Type: BLOOD SPECIMENOrdering Facility: [facility] Address: [address] [place] [address] Performed By: #### T SCR ####[facility] BLOOD BANKCLIA [id number] [address] Start: 08-04-2021 Antibody screen Comment on above: Order Comment: Speci men Type: BLOOD SPECIMENOrdering Facility: [facility] Address: [address] [place] [address] Performed By: #### T SCR ####[facility] BLOOD BANKCLIA [id number] [address] Start: 08-01-2021 Antibody screen Comment on above: Order Comment: Speci men Type: BLOOD SPECIMENOrdering Facility: [facility] Address: [facility] [place] [facility] [place] [address] Performed By: #### T SCR ####[facility] BLOOD BANKCLIA [id number] [place] [address] [facility] Start: 06-07-2021 Antibody screen Comment on above: Order Comment: Speci men Type: BLOOD SPECIMEN Performed By: #### T SCR ####[facility] BLOOD BANKCLIA [id number] [place] [address] [facility] Start: 09-02-2020 Lipid 1996 panel - S bradly or Plasma Rebecca Buck MD Work Phone: Start: 04-07-2020 Echocardiography Wing Ritter Start: 11-13-2019 Radiologic examinati on tibia & fibula 2 views 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 (Kim) Debbie Work Phone: Hernia repair Monika melvin History of Cholecystotomy An yvette Staley History of Creation Of Subdural-Peritoneal CSF Shunt Monika Staley History of Interrupt ion Inferior Vena Cava [place] Filter Placement Monika Staley Urine culture Plan of Treatment Date Care Activity Detail Author Start: 09-22-2026 DTaP/Tdap/Td vaccine (2 - Td or Tdap) DTaP/Tdap/Td vaccine (2 - Td or Tdap) [facility] Start: 09-22-2026 DTaP/Tdap/Td vaccine (2 - Td) DTaP/Tdap/Td vaccine (2 - Td) [facility] Work Phone: Start: 09-22-2026 DTaP/Tdap/Td Vaccine s (2 - Td or Tdap) DTaP/Tdap/Td Vaccines (2 - Td or Tdap) [facility] Start: 09-02-2025 Lipid panel Lipid Panel [facility] Start: 03-02-2025 Registered Referred Registered [facility] Start: 02-26-2025 Registered Referred Registered [facility] Start: 02-23-2025 Registered Referred Registered [facility] Start: 02-19-2025 Registered Referred Registered [facility] Start: 02-16-2025 Registered Referred Registered [facility] Start: 08-22-2024 DIABETES SCREEN DIABETES SCREEN [facility] Start: 12-04-2023 Lipid panel Lipids [facility] Start: 12-04-2023 Lipid screen Lipid screen [facility] Work Phone: Start: 09-13-2023 End: 09-13-2023 Patient encounter procedure 09/13/2023 11:30 AM EDT Office Visit [facility] [address] [place] [id number] Rebecca Buck MD [address] [facility] [address] [place], [place] [id number] [facility] Start: 08-31-2023 End: 08-31-2023 Patient encounter procedure 08/31/2023 9:30 AM EDT Appointment [facility] [address] [place] [phone] Rebecca Buck MD [address] [facility] [address] [place] [address] [facility] Start: 08-13-2023 End: 08-12-2024 Basic metabolic 1998 panel - Serum or Plasma Basic metabolic panel Lab Routine Calculus of ureter Expected: 08/13/2023 (Approximate), Expires: 08/12/2024 [facility] Comment on above: Expected: 08/13/2023 (Approximate), Expires: 08/12/2024 Start: 08-13-2023 End: 08-12-2024 CT Abdomen WO contrast CT abdomen pelvis wo IV contrast Imaging Routine Left flank pain Calculus of ureter Expected: 08/13/2023, Expires: 08/12/2024 [facility] Comment on above: Expected: 08/13/2023 , Expires: 08/12/2024 Start: 08-13-2023 End: 02-12-2024 PSA, Monitoring ([facility]) PSA, Monitoring ([facility]) Lab Routine Disease of prostate Expected: 08/13/2023 (Approximate), Expires: 02/12/2024 [facility] Work Phone: Comment on above: Expected: 08/13/2023 (Approximate), Expires: 02/12/2024 Start: 08-13-2023 End: 08-13-2023 Patient encounter procedure 08/13/2023 10:00 AM EDT Office Visit [facility] [address] [place] [phone] Rebecca Buck MD [address] [place] [address] [facility] Start: 07-17-2023 Bacteria identified in Urine by Culture [facility] Start: 07-17-2023 [facility] Start: 07-16-2023 Measurement of substance [facility] Start: 05-07-2023 Medicare Advantage A nnual Wellness Visit Medicare Advantage Annual Wellness Visit [facility] Start: 03-02-2023 Creatinine measurement Creatinine Le carmela [facility] Start: 03-02-2023 Potassium measurement Potassium Leve l [facility] Start: 08-22-2022 Diabetes mellitus screening Diabetes Screening [facility] Start: 01-05-2022 Influenza vaccination S [facility] Start: 12-23-2021 EPV, Provider: Wing Ritter, Status: Pen, Time: 9:30 AM EPV, Provider: Wing Ritter, Status: Pen, Time: 9:30 AM SV-Xdzehmiewp-Wvs ma Work Phone: Start: 12-05-2021 Influenza vaccination Flu vaccine (# 1) [facility] Start: 12-05-2021 Blood chemistry [facility] Work Phone: Start: 12-05-2021 Complete blood count [facility] Work Phone: Start: 12-05-2021 [facility] Work Phone: Start: 12-01-2021 [facility] Work Phone: Start: 08-05-2021 COVID-19 VACCINE (4 - Booster for Moderna series) COVID-19 VACCINE (4 - Booster for Moderna series) [facility] Start: 08-05-2021 COVID-19 Vaccine (4 - Booster for Pfizer series) COVID-19 Vaccine (4 - Booster for Pfizer series) [facility] Start: 06-01-2021 COVID-19 Vaccine (4 - Booster for Pfizer series) COVID-19 Vaccine (4 - Booster for Pfizer series) [facility] Start: 05-07-2021 ADVANCE DIRECTIVE DISCUSSION ADVANCE DIRECTIVE DISCUSSION [facility] [facility] Start: 08-11-2020 Screening for malign ant neoplasm of colon [facility] Start: 07-30-2020 Screening for malign ant neoplasm of colon [facility] Start: 01-20-2020 Echocardiography Echocardiogram [facility] [address] [place] Work Phone: Start: 01-06-2020 Influenza vaccination INFLUENZA (#1) [facility] Start: 12-04-2019 Annual Wellness Visi t (AWV) Annual Wellness Visit (AWV) [facility] Start: 12-04-2019 Creatinine monitoring Creatinine mon itoring [facility] Work Phone: Start: 12-04-2019 Hepatitis C screen Hepatitis C scree n [facility] Work Phone: Comment on above: Postponed from 05/06 (Patient Refused) Start: 12-04-2019 Potassium monitoring Potassium monit oring [facility] Work Phone: Start: 12-04-2019 Prostate specific an tigen measurement Prostate Specific Antigen (PSA) Screening or Monitoring [facility] Start: 12-04-2019 Shingles Vaccine (1 of 2) Day gles Vaccine (1 of 2) [facility] Work Phone: Comment on above: Postponed from 05/06 (Patient Refused) Start: 06-07-2019 Colon Cancer Screen FIT/FOBT [facility] Work Phone: Start: 08-14-2017 LIPID SCREEN LIPID SCREEN [facility] Start: 2017 ADVANCE DIRECTIVE DISCUSSION ADVANCE DIRECTIVE DISCUSSION [facility] Start: 2017 PNEUMOCOCCAL: 65+ (1 - PCV) PNEUMOCOCCAL: 65+ (1 - PCV) [facility] Start: 2017 PNEUMOVAX AGE 65 AND OVER WITH 5YR LOOKBACK (#1) PNEUMOVAX AGE 65 AND OVER WITH 5YR LOOKBACK (#1) [facility] Start: 04-14-2016 DIABETES SCREEN DIABETES SCREEN [facility] Start: 2012 RSV Immunization age d 60 or older (1 - 1-dose 60+ series) RSV Immunization aged 60 or older (1 - 1-dose 60+ series) [facility] Start: 2007 PROSTATE CANCER SCRE ENING DISCUSSION PROSTATE CANCER SCREENING DISCUSSION [facility] Start: 2002 Shingles vaccine (1 of 2) Day gles vaccine (1 of 2) [facility] Start: 2002 SHINGRIX VACCINE (1 of 2) DAY GRIX VACCINE (1 of 2) [facility] Start: 2002 Tuberculosis screening COLOREC MONIQUE CANCER SCREENING,SEE MODIFIER [facility] Start: 2002 Zoster Vaccines (1 of 2) Zoste r Vaccines (1 of 2) [facility] Start: 1997 COLOGUARD (FIT-DNA) COLOGUARD (FIT-D NA) [facility] Start: 1997 Colonoscopy COLONOSCOPY [facility] Start: 1997 COLORECTAL CANCER SCREENING COLORECTAL CANCER SCREENING [facility] Start: [address] COLONOGRAPHY [facility] Start: 1997 FECAL OCCULT BLOOD FECAL OCCULT BLOO D [facility] Start: 1997 Screening for malign ant neoplasm of colon [facility] Start: 1997 SIGMOIDOSCOPY SIGMOIDOSCOPY [facility] Start: 1987 Diabetes screen Diabetes screen [facility] Start: 1971 Urine microalbumin profile DTAP,TDAP,TD (1 - Tdap) [facility] Start: 1970 ANNUAL PCP TEAM 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 DRIVER KEESHA DISEASE VISIT ANNUAL PCP TEAM CHRONIC DISEASE VISIT [facility] Start: 1970 BP CONTROLLED (<130/80) BP CONTROLLE D (<130/80) [facility] Start: 1970 Diabetes mellitus screening Diabetes Screening [facility] Start: 1970 HEPATITIS C SCREENING HEPATITIS C JOBY VILLARREAL [facility] Start: 1970 Hepatitis C screening S [facility] Start: 1964 Adult depression screening assessment DEPRESSION SCREENING [facility] Start: 1964 Depression Screen [facility] Screen [facility] Start: 1962 Diabetic foot examination Diabetes: Foot Exam [facility] Start: 1962 Glaucoma screening Diabetes: R etinopathy Screening [facility] Start: 1962 Preventive dental service Diabetes: Dental Exam [facility] Start: 1952 Echocardiography Echocardiogram [facility] Start: 1952 Hemoglobin A1c measurement Diabetes: Hemoglobin A1C [facility] Start: 1952 Lipid panel Lipid Panel [facility] Start: 1952 Screening for malign ant neoplasm of colon [facility] Bacteria identified in Urine by Culture Urine Culture [facility] Work Phone: End: 03-02-2022 CBC W Auto Differential panel - Blood CBC with Auto Differential Lab Routine One Time for 1 Occurrences starting 03/02/2022 until 03/02/2022 [facility] Work Phone: Comment on above: One Time for 1 Occur rences starting 03/02/2022 until 03/02/2022 End: 03-02-2022 Comprehensive metabolic 2000 panel - Serum or Plasma Comprehensive Metabolic Panel Lab STAT One Time for 1 Occurrences starting 03/02/2022 until 03/02/2022 [employer] Work Phone: Comment on above: One Time for 1 Occur rences starting 03/02/2022 until 03/02/2022 End: 09-06-2023 CT Abdomen WO contrast [facility] Work Phone: Comment on above: Once for 1 Occurrenc es starting 09/06/2023 until 09/06/2023 End: 12-22-2021 Culture, Blood 2 Culture, Blood 2 Microbiology STAT One Time for 1 Occurrences starting 12/22/2021 until 12/22/2021 [facility] Work Phone: Comment on above: One Time for 1 Occur rences starting 12/22/2021 until 12/22/2021 End: 12-22-2021 Microscopic examination of blood, culture Culture, Blood Microbiology STAT One Time for 1 Occurrences starting 12/22/2021 until 12/22/2021 [facility] Work Phone: Comment on above: One Time for 1 Occur rences starting 12/22/2021 until 12/22/2021 Microscopic examinat ion of blood, culture Culture, Blood Microbiology STAT 12/22/2021 12:22 AM EDT [facility] Work Phone: Oxygen therapy [[facility] Data Set] Initiate Oxygen Therapy Protocol Respiratory Care Routine As Needed until discontinued starting 10/21/2021 [facility] Comment on above: As Needed until disc ontinued starting 10/21/2021 Protime-INR Protime-INR Lab Routine Daily until discontinued starting 10/23/2021, 7 completed [facility] Work Phone: Comment on above: Daily until disconti nued starting 10/23/2021, 7 completed End: 03-02-2022 Protime-INR Protime-INR Lab Routine One Time for 1 Occurrences starting 03/02/2022 until 03/02/2022 [facility] Work Phone: Comment on above: One Time for 1 Occur rences starting 03/02/2022 until 03/02/2022 Spirometry panel Incentive stef metry Respiratory Care Routine Daily until discontinued starting 10/21/2021 [facility] Work Phone: Comment on above: Daily until disconti nued starting 10/21/2021 End: 10-21-2021 Wound ostomy eval Wound ostomy eval Wound Ostomy Routine One Time for 1 Occurrences starting 10/21/2021 until 10/21/2021 [facility] Work Phone: Comment on above: One Time for 1 Occur rences starting 10/21/2021 until 10/21/2021 [facility] NEGATED: Highlighted row has been ruled out! Planned Goals not documented [facility] Work Phone: Immunizations Immunization Date Immunization Notes Care Provider Fa cili 03-04-2019 influenza, high dose seasonal, preservative-free Sarika Salas [facility] 12-03-2018 pneumococcal polysac charide vaccine, 23 valent [facility] Salas [facility] Work Phone: 01-25-2018 influenza, high dose [...] Phone: Payers Date Payer Category Payer Unknown [id number] 03-19-2024 Self-pay 01-05-2022 Medicaid 01-05-2022 Medicare 01-05-2022 Medicare [id number] 10-05-2021 Medicaid [id number] [id number] 06-07-2021 Medicare UHC MEDICARE UHC DUAL COMPLETE HMO SNP [id number] 06/07/2021-Present [phone] [address] [place] [address] Medicare [id number]. 2.7.3.403453.315 06-07-2021 Medicare UHC MEDICARE UNITEDHE[employer] DUAL COMPLETE [id number] 06/07/2021-Present [phone] [address] [place] [address] [id number]. 2.7.3.518373.315 11-05-2019 Medicare UHC AARP MEDICAR E [facility] AARP MEDICARE HMO [id number] 11/05/2019-Present O [id number] 1.2.840.281510.1.13.159. 2.7.3.919278.315 07-06-2015 Medicare UHC MEDICARE UHC MEDICARE COMPLETE xxxxxxxxx 2015-Present xxxxxxxxx 1.2.840.920334.1.13.239. 2.7.3.165302.315 1950 Unknown [id number] 2.16.840.1.516174.3.579. 2.668 1950 Unknown [id number] 2.16.840.1.365410.3.579. 2.668 1950 Unknown [id number] 2.840.1.016475.3.579. 2.6605-06-1950 Unknown [id number] 2.16.840.1.657494.3.579. 2.8 1950 Unknown [id number] 2.840.1.790533.3.579. 2.05-06-1950 Unknown [id number] 2.840.1.440598.3.579. 2.668 1950 Unknown [id number] 2.840.1.473643.3.579. 2.668 Private Health Insurance Unknown Unknown [id number] 2.840.1.941668.3.579. 2.462 Unknown [id number] 2.840.1.790250.3.579. 2.462 Unknown [id number] 2.840.1.430171.3.579. 2.462 Unknown [id number] 2.840.1.152276.3.579. 2.462 Unknown [id number] 2.16840.1.936498.3.579. 2.462 Unknown [id number] 2.16.840.1.780642.3.579. 2.462 Unknown [id number] 2.16.840.1.736060.3.579. 2.462 Unknown [id number] 2.16.840.1.323326.3.579. 2.462 Unknown [id number] 2.840.1.207246.3.579. 2.462 Unknown [id number] 2.16.840.1.284388.3.579. 2.462 Unknown [id number] 2.16.840.1.839531.3.579. 2.462 Unknown [id number] 2.16.840.1.719977.3.579. 2.462 Unknown [id number] 2.16.840.1.911571.3.579. 2.462 Unknown [id number] 2.16.840.1.547323.3.579. 2.462 Unknown [id number] 2.16.840.1.093555.3.579. 2.462 Unknown [id number] 2.840.1.102449.3.579. 2.462 Unknown [id number] 2.840.1.293309.3.579. 2.462 Unknown [id number] 2..840.1.470663.3.579. 2.462 Unknown [id number] 2.840.1.710985.3.579. 2.462 Unknown [id number] 2.840.1.749388.3.579. 2.462 Unknown [id number] 2.16.840.1.297946.3.579. 2.462 Unknown [id number] 2.16.840.1.903564.3.579. 2.462 Unknown [id number] 2..840.1.453089.3.579. 2.462 Unknown [id number] 2.16.840.1.277286.3.579. 2.462 Unknown [id number] 2.16.840.1.957897.3.579. 2.462 Unknown [id number] 2.16.840.1.078786.3.579. 2.462 Unknown [id number] 2.16.840.1.741024.3.579. 2.462 Unknown [id number] 2.16840.1.069299.3.579. 2.462 Unknown [id number] 2.16.840.1.318580.3.579. 2.462 Unknown [id number] 2.16840.1.385312.3.579. 2.462 Unknown [id number] 2.16.840.1.734897.3.579. 2.462 Unknown [id number] 2.16840.1.616462.3.579. 2.462 Unknown [id number] 2.16840.1.794356.3.579. 2.462 Unknown [id number] 2.840.1.813799.3.579. 2.462 Unknown [id number] 2.840.1.651797.3.579. 2.462 Unknown [id number] 2.840.1.307809.3.579. 2.462 Unknown [id number] 2.840.1.135887.3.579. 2.462 Unknown [id number] 2.840.1.629300.3.579. 2.462 Unknown [id number] 2.840.1.658680.3.579. 2.462 Unknown [id number] 2.840.1.147283.3.579. 2.462 Unknown [id number] 2.840.1.656692.3.579. 2.462 Unknown [id number] 2.840.1.528177.3.579. 2.462 Unknown [id number] 2.840.1.339524.3.579. 2.462 Unknown [id number] 2.840.1.959825.3.579. 2.462 Unknown [id number] 2.840.1.694594.3.579. 2.462 Unknown [id number] 2.16840.1.001268.3.579. 2.462 Unknown [id number] 2.16.840.1.770332.3.579. 2.462 Unknown [id number] 2.16.840.1.093236.3.579. 2.462 Unknown [id number] 2.16.840.1.816832.3.579. 2.462 Unknown [id number] 2.16.840.1.372941.3.579. 2.462 Unknown [id number] 2.16.840.1.858584.3.579. 2.462 Unknown [id number] 2.16.840.1.504182.3.579. 2.462 Unknown [id number] 2.16.840.1.764869.3.579. 2.462 Unknown [id number] 2.16.840.1.524040.3.579. 2.462 Unknown [id number] 2.16.840.1.571598.3.579. 2.462 Unknown [id number] 2.16.840.1.161395.3.579. 2.462 Unknown [id number] 2.16.840.1.987639.3.579. 2.462 Unknown [id number] 2.16.840.1.743746.3.579. 2.462 Unknown [id number] 2.16.840.1.507413.3.579. 2.462 Unknown [id number] 2.16.840.1.616313.3.579. 2.462 Unknown [id number] 2.16.840.1.329127.3.579. 2.462 Unknown [id number] 2.16.840.1.884573.3.579. 2.462 Unknown [id number] 2.16.840.1.913549.3.579. 2.462 Unknown [id number] 2.16.840.1.464663.3.579. 2.462 Unknown [id number] 2.16.840.1.068414.3.579. 2.462 Unknown [id number] 2.16.840.1.905675.3.579. 2.462 Unknown [id number] 2.16.840.1.681165.3.579. 2.462 Unknown [id number] 2.16.840.1.556088.3.579. 2.462 Unknown [id number] 2.16.840.1.246176.3.579. 2.462 Unknown [id number] 2.16.840.1.624432.3.579. 2.462 Unknown [id number] 2.16.840.1.711355.3.579. 2.462 Unknown 64167360 2.16.840.1.599029.3.579. 2.462 Unknown 54531699 2.16.840.1.879183.3.579. 2.462 Unknown 90438889 2.16.840.1.377393.3.579. 2.462 Unknown 47482752 2.16.840.1.318200.3.579. 2.462 Unknown 57825415 2.16.840.1.771708.3.579. 2.462 Unknown 76574151 2.16.840.1.791328.3.579. 2.462 Unknown 64470236 2.16.840.1.112479.3.579. 2.462 Unknown 49659752 2.16.840.1.308226.3.579. 2.462 Unknown 27188852 2.16.840.1.883199.3.579. 2.462 Unknown 53132390 2.16.840.1.444115.3.579. 2.462 Unknown 76287393 2.16.840.1.553568.3.579. 2.462 Unknown 58308017 2.16.840.1.570355.3.579. 2.462 Unknown 10936562 2.16.840.1.623864.3.579. 2.462 Unknown 31709111 2.16.840.1.775194.3.579. 2.462 Unknown 26676020 2.16.840.1.977555.3.579. 2.462 Unknown 06410602 2.16.840.1.190903.3.579. 2.462 Unknown 41570173 2.16.840.1.525265.3.579. 2.462 Unknown 31460344 2.16.840.1.942699.3.579. 2.462 Unknown 45266209 2.16.840.1.087130.3.579. 2.462 Unknown [id number] 2.16.840.1.609317.3.579. 2.462 Unknown [id number] 2.16.840.1.256743.3.579. 2.462 Unknown [id number] 2.16.840.1.987674.3.579. 2.462 Unknown [id number] 2.16.840.1.900386.3.579. 2.462 Unknown [id number] 2.16.840.1.987724.3.579. 2.462 Unknown 54557915 2.16.840.1.868089.3.579. 2.462 Unknown 02177612 2.16.840.1.214524.3.579. 2.462 Unknown 65809202 2.16.840.1.239605.3.579. 2.462 Unknown 28968096 2.16.840.1.820685.3.579. 2.462 Unknown 04433777 2.16.840.1.824959.3.579. 2.462 Unknown 74274217 2.16.840.1.752121.3.579. 2.462 Unknown [id number] 2.16.840.1.104656.3.579. 2.462 Unknown 01085612 2.16.840.1.074997.3.579. 2.462 Unknown 64099844 2.16.840.1.152355.3.579. 2.462 Unknown 85430296 2.16.840.1.959064.3.579. 2.462 Unknown 62156079 2.16.840.1.802779.3.579. 2.462 Unknown [id number] 2.16.840.1.075509.3.579. 2.462 Unknown 67595488 2.16.840.1.136313.3.579. 2.462 Unknown [id number] 2.16.840.1.849016.3.579. 2.462 Unknown 26235423 2.16.840.1.851503.3.579. 2.462 Unknown [id number] 2.16.840.1.992008.3.579. 2.462 Unknown [id number] 2.16.840.1.589281.3.579. 2.462 Unknown [id number] 2.16.840.1.625577.3.579. 2.462 Unknown [id number] 2.16.840.1.422434.3.579. 2.462 Unknown [id number] 2.16.840.1.564867.3.579. 2.462 Social History Date Type Detail Facility Start: 05-23-2018 End: 05-19-2019 Tobacco smoking status GAIS Former smoker [employer] Work Phone: History of tobacco use Cigar Smoker [employer] Work Phone: Start: 05-19-2019 End: 08-13-2023 Cigarettes smoked current (pack per day) - Reported [employer] Work Phone: Start: 05-19-2019 End: 08-13-2023 Alcohol intake Current non-drinker of alcohol (finding) [employer] Work Phone: Start: 12-03-2018 History SDOH Physica l Activity DPW 7 [facility] Work Phone: Start: 12-03-2018 History SDOH Physica l Activity MPS 9 [employer] Work Phone: Start: 12-03-2018 End: 10-31-2021 History SDOH Stress 1 [facility] Work Phone: Start: 12-03-2018 History SDOH Financial 5 [facility] Work Phone: Start: 12-03-2018 History SDOH Transpo rt Med 2 [employer] Work Phone: Start: 1950 Sex Assigned At Not on file S [facility] Work Phone: Start: 08-13-2012 End: 11-13-2019 Tobacco smoking status NHIS Never smoker [facility] Start: 05-23-2018 End: 11-13-2019 Tobacco use and exposure Never used [facility] Start: 11-13-2019 History SDOH Alcohol Std Drinks 98 [facility] Start: 10-11-2021 End: 02-15-2022 Exposure to SARS-CoV-2 (event) Not sure [facility] Start: 1950 Sex Assigned At Male [facility] History of tobacco use Current smoker [facility] Work Phone: History of tobacco use Cigarette Smoker S [facility] Work Phone: Start: 10-31-2021 End: 08-13-2023 Tobacco use panel [facility] Tobacco smoking stat us GAIS Unknown if ever smoked [facility] Work Phone: Start: 07-11-2024 End: 08-21-2024 Sex Male (finding) [facility] NEGATED: Highlighted row - - [facility] Work Phone: Medical Equipment Procedure Code Equipment Code Equipment Origin al Text Equipment Identifier Dates Kit Bactiseal Woodard maria guadalupe Silicone Barium Catheter Shunt Sterile - [id number] Start: 06-08-2021 Catheter Bactise al 14cm External Drainage Csf Sterile Latex Free - [id number] Start: 08-05-2021 Valve Certas Shannon nt Inline - [id number] Start: 06-08-2021 Cass snow Inline - [id number] Start: 08-05-2021 Valve Armando snow Inline - [id number] Start: 08-09-2021 Goals Date Patient Goal [...] confident he can reach it. Added to [facility] exercise information Functional Status Date Assessment Result Facility NEGATED: Highlighted row Functional performance Functional status health issues are not documented Disease [facility] Work Phone: Mental Status Date Assessment Result Facility NEGATED: Highlighted row Cognitive function [Interpretation] Cognitive status health issues are not documented Disease [facility] Work Phone: Clinical [...] adult (CMS/HCC) (HCC) Kidney stone Neuropathy [employer] (ventriculoperitoneal) shunt status Past Surgical History: Procedure [...] 09/13/23 12:05 PM documented in this encounter [facility] 08-31-2023 Note S: Shanthi from [facility] spoke with [facility] nurse regarding voiding trial procedure. B: Onset [...] Protocols used: Information Only Call - No [facility] Telephone encounter Note S: Shanthi from [facility] spoke with [facility] nurse regarding voiding trial procedure. B: Onset [...] Protocols used: Information Only Call - No Sqyaur-BDKOK-FX [facility] 08-31-2023 Miscellaneous Notes S: Shanthi from [facility] spoke with [facility] nurse regarding voiding trial procedure. B: Onset of symptoms/concern today. A: [facility] is calling to make sure that [...] Protocols used: Information Only Call - No Hoeicr-QRDQT-EQ documented in this encounter [facility] 08-29-2023 Telephone encounter Note Lm on daughters vm to advise them to call the number for the assistant plant manager to get clarification, and to call back with further questions [facility] 08-29-2023 Miscellaneous Notes Lm on daughters vm to advise them to call the number for the assistant plant manager to get clarification, and to call back with further questions Yes, they will need to call the number given to them. Please advise Name of caller: Shanthi Contact phone number: [phone] Relationship to Patient: patient Provider: MD Quinn Practice: [facility] Urology Chief Complaint/Reason [...] reach out to call Maury Avila at [facility] [phone] to get clarifications. TEA did reach back out to [facility] and advised and provider Maury's #. Please advise Best time of day caller can be reached: Any Patient advised that office/PCP has 24-48 business hours to return their call: N/A documented in this encounter [facility] 08-27-2023 Telephone encounter Note Yes, they will need to call the number given to them. [facility] 08-27-2023 Telephone encounter Note Please advise [facility] 08-21-2023 Telephone encounter Note Name of caller: Shanthi Contact phone number: [phone] Relationship to Patient: patient Provider: MD Quinn Practice: [facility] Urology Chief Complaint/Reason for Call: Shanthi called in to see if Pt would need to come by cot for his CT appt due to Pt being Bo[place]. TEA did reach out to office and was advised to reach out to Central Scheduling. TEA did reach out to CS and was advised to let [facility] know that she would need to reach out to call Maury Avila at [facility] [phone] to get clarifications. [facility] did reach back out to [facility] and advised and provider Maury's #. Please advise Best time of day caller can be reached: Any Patient advised that office/PCP has 24-48 business hours to return their call: N/A [facility] 08-13-2023 History of Present illness Narrative Images [...] adult (CMS/HCC) (HCC) Kidney stone Neuropathy [employer] (ventriculoperitoneal) shunt status Past Surgical History: Past [...] 08/13/23 10:45 AM documented in this encounter [facility] 06-25-[address] [facility] called in stating appt scheduled 07/10/23 Guy has to be made further out, pt being transported by cot. Changed appt to 08/13/23 per [facility] only avail time for transport, first avail with DR Buck at 10:00 AM. [facility] 06-25-[address] [facility] called in stating appt scheduled 07/10/23 Guy has to be made further out, pt being transported by cot. Changed appt to 08/13/23 per [facility] only avail time for transport, first avail with DR Buck at 10:00 AM. documented in this encounter [facility] 12-22-2021 Hospital Discharge instructions SANIA Lou - 12/22/2021 2:32 AM EDT Please take medication as prescribed Please follow up with your Physicians as instructed in this discharge paperwork Thank you for choosing [facility] I appreciate your patience Please return to the emergency department if your symptoms worsen, or new symptoms develop as discussed documented in this encounter [facility] Work Phone: 10-29-2021 Note Hospitalist Discharg [...] and previous indwelling tubing history of [employer] shunt ? #?Bilateral lower extremity wounds-wound care [...] Your Medications These medications were sent to [facility] [address] [place] [address] [address] [facility] - P [phone] - F [phone] [facility] [id number] ? levETIRAcetam 750 MG tablet ? warfarin 6 MG tablet Recommended Follow-up: No follow-up provider specified. Complexity of Follow up: [] Moderate Complexity: follow up within 7-14 calendar days (58467) [x] Severe Complexity: follow up within 7 calendar days (23075) Follow up Testing, Pending results or Referrals [...] Contact Information Primary Emergency Contact: NelsonTriny Address: [address] [place] [address] [place] [address] [facility] Relation: Brother/Sister Secondary Emergency Contact: Melissa Sifuentes Mobile Relation: Child Preferred language: Israeli Past Surgical History: Past Surgical History: Procedure Laterality Date BRAIN SURGERY CHOLECYSTECTOMY COLONOSCOPY HERNIA REPAIR Immunization History: Immunization History Administered Date(s) Administered Influenza Virus Vaccine 02/08/2015 Influenza, High Dose (Fluzone 65 yrs and older) 01/25/2018, 03/04/2019 Influenza, Quadv, IM, (6 mo and older Fluzone, Flulaval, Fluarix and 3 yrs and older Afluria) 02/24/2016, 02/14/2017 Pneumococcal Conjugate 13-valent (Hsjbfnx25) 09/22/2016 Pneumococcal Conjugate Vaccine 02/04/2013 Pneumococcal Polysaccharide (Tbfrxyapl23) 12/03/2018 Tdap (Boostrix, Adacel) 09/22/2016 Active Problems: Patient Active Problem List Diagnosis Code Flank pain, acute R10.9 Night muscle spasms M62.838 Chronic fatigue R53.82 Hydrocephalus (HCC) G91.9 Neuropathy G62.9 Erectile dysfunction N52.9 Fluid retention in tissues R60.9 Hyperlipidemia E78.5 Morbidly obese (HCC) E66.01 Leg wound, left S81.802A DVT, lower extremity, recurrent, unspecified laterality ([facility]) I82.409 Moderate malnutrition ([facility]) E44.0 History of seizures Z87.898 [...] Dependent Dressing Dependent Toileting Dependent Feeding Dependent Cloth Booker Dependent Med Delivery whole in pudding Wound [...] Q4H prn SOB Oxygen Therapy: {Therapy; copd oxygen:49948} Ventilator: { CC Vent List:[id number]} Rehab Therapies: {THERAPEUTIC INTERVENTION:[id number]} Weight Bearing Status/Restrictions: Weight Bearing - Patient was bedbound in hospital Other Medical Equipment (for information only, NOT a DME order): wheelchair, hospital bed, and Boaz Other Treatments: Patient's personal belongings (please select all that are sent with patient): {[facility] DME Belongings:[id number]} RN SIGNATURE: CASE MANAGEMENT/SOCIAL WORK SECTION Inpatient Status Date: Readmission Risk Assessment Score: Readmission Risk Risk of Unplanned Readmission: 11 Discharging to Facility/ Agency Name: Address: Phone: Fax: Dialysis Facility (if applicable) Name: Address: Dialysis Schedule: Phone: Fax: Community Cultural Development Officer/[employer] signature: {Esignature:[id number]} PHYSICIAN SECTION Prognosis: Fair Condition at Discharge: Stable Rehab Potential (if transferring to Rehab): Fair Recommended Labs or Other Treatments After Discharge: Coumadin based on INR target range 2-3, Coumadin 6 mg on 10/30 and 10/31, recheck INR 11/01 and notify physician, ideally should be on 6 mg alt with 7 mg daily, PT/OT, follow-up with neurologist in 1 month, continue [facility] Physician Certification: I certify the above information and transfer of Andrew Sifuentes is necessary for the continuing treatment of the diagnosis listed and that he requires [facility] Facility for greater than 30 days. Update Admission H&P: No change in H&P PHYSICIAN SIGNATURE: documented in this encounter [facility] Work Phone: 10-29-2021 History of Present illness Narrative [facility] Anticoagulation Management Service ([facility]) Inpatient Warfarin Consult HPI: Andrew Sifuentes is a 71 y.o. 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 Past Medical History: Diagnosis Date ED (erectile dysfunction) Hemorrhoids Hydrocephalus, adult (HCC) Kidney stone Neuropathy SUPERVISOR ADVERTISING [employer]ERKS (ventriculoperitoneal) shunt status Patient is newly referred [...] PharmD IRVIN Consult Service is available daily [phone]. Please search for covering pharmacist name via Definicare or Groups --> Pharmacy --> Anti-Coagulation Consult Pharmacist (on 3rd page). If no response via Definicare, please page [phone]. Patient seen and chart reviewed. Afebrile. Adequate oxygenation on room air. Baseline mentation. Exam stable X 5 systems. Hgb 11.0 WBC 10.0 K Platelets 344 K Creatinine 0.71 GFR > 90 cc/min. NSE 20.8 with hemolysis. PT 30.8 INR 3.1 Conversion to Warfarin has been completed. APS w/u pending. Discussed with patient's staff radiographer. Will continue to monitor. Total visit time > 35 minutes. Neurology Attending Progress Note SUBJECTIVE: No issues overnight. Care discussed with nursing staff/patient's medical team MRI brain reported nothing acute. Assessment and Plan: 71 yr M with PMH obstructive hydrocephalus s/p SUPERVISOR ADVERTISING [employer]PATCH CLERKS shunt in 1987, needing multiple revisions and [...] limits and both old and new SUPER[employer]VERT[employer]ERKS shunt tubing noted. At present patient is awake, follows commands, was able to tell his name, and that he was in hospital but not oriented to time. Per documentation patient had NCSE in May 2021, was on Vimpat, but it was discontinued as there was no evidence of recurrent seizures in july 2021 by Neurology at [facility], per daughter patient was on Dilantin [...] limits and both old and new SUPER[employer]VERTISING [employer]ERKS shunt tubing noted -EEG mild to moderate slow, no seizures reported -Labs reviewed -Hydrocephalus management per Neurosurgery. At present patient does not have hydrocephalus on CT head done this admission. No Neurosurgery services available as inpatient in [facility]. Patient can follow up with Neurosurgery as outpatient and if ends up needing inpatient neurosurgery requirement then may need to be transferred to [facility]. -No clear clinical signs of ventriculitis. Defer evaluation to primary medical team/ID as deemed necessary. -Discussed with daughter in detail on . She was concerned that patient has had h/o seizures, and he has been taken off seizure medication, per note documentation patient had NCSE in May 2021 when he was admitted to [facility]. Per daughter she would want patient [...] is no in house Neurology coverage at [facility] over the weekend, primary hospitalist team to contact supervisor erection shop Neurology at [facility] for any weekend neurological issues related to the patient and if need to discuss any neurological test results/findings. Other deal in house Neurology coverage will be available from Sunday at [facility] and please call supervisor erection shop Neurology back on Sunday if need further assistance. This note has been generated using [employer] dictation software. It may contain incorrect words, punctuation's and spellings that were not noted in the review of the note prior to signing. This note has been generated using [employer] dictation software. It may contain incorrect words, [...] eGFR >90.0 >60 mL/min EGFR IF NonAfrican Serbian >90.0 >60 mL/min Calcium 9.1 8.4 - [...] Radiology ACCESSION EXAM DATE/TIME PROCEDURE ORDERING PROVIDER [id number] 10/21/2021 15:30 EDT CR Calcaneus 2+ Views [id number] -SHRUTHI MALIK Left CPT code 88931 Reason For Exam (CR Calcaneus 2+ Views [...] [id number] Computed Tomography ACCESSION EXAM DATE/TIME PROCEDURE ORDERING PROVIDER [id number] 10/26/2021 11:[address] Head or Brain w/o JUNIE PINEDA ALLISON Contrast CPT code 73097 Reason For Exam (CT Head or Brain w/o Contrast) hydrocephalus. thank you Report CLINICAL INFORMATION: Hydrocephalus. Shunt. 3 mm axial cuts through the head are obtained without IV contrast. The examination is compared to a previous study dated 06/29/2014. FINDINGS: Old SUPERVIS[employer] ADVERTISING [employer]ERKS shunt tubing is noted bilaterally. The new [...] clear. IMPRESSION: 1. Old and new SUPERVISOR ADVERTISING [employer]ERKS shunt tubing. 2. No hydrocephalus. 3. Atrophy [...] Imaging ACCESSION EXAM DATE/TIME PROCEDURE ORDERING PROVIDER [id number] 10/23/2021 11:08 EDT MRI Abdomen w/o Contrast SRIVASTAVAWING CPT code 55753 Reason For Exam (MRI Abdomen w/o Contrast) [...] VENT/PERFUSION (VQ) Result Date: 10/21/2021 Patient Name: ANRDEW SIFUENTES Nuclear Medicine ACCESSION EXAM DATE/TIME PROCEDURE ORDERING PROVIDER [id number] 10/21/2021 07:55 EDT NM Pulmonary Perfusion [id number] -MAY CASH w/ Vent Aerosol CPT code 31864 A9567 Reason For Exam (NM Pulmonary Perfusion [...] Brachial Indices Extremity Bilateral Result Date: 10/22/2021 [facility] --- Ankle Brachial Index Report Patient DO GurpreetB: 1950 Study 10/21/2021 Name: Andrew Gonzalez (71yrs) Date: Age: 71 Account: [id number] Gender: M Loc: 444W BP: Ordering Physician: Shruthi Malik Commissioned Security Officer: Rody Cross RDMS, RVT Interpreting Physician: Carina Call --- Location: [facility] --- Indications: Foot wounds. Originally ordered as a full PVR. Ordering PLANT FLOOR AUTOMATION MANAGER had to modify the order to [...] supine position. Images were obtained using a imageloops vascular ultrasound machine. --- Arterial pressure indices: [...] EXTREMITY BILATERAL VENOUS DUPLEX Result Date: 10/21/2021 [facility] --- Lower Extremity Venous Duplex Report Patient DO GurpreetB: 1950 Study 10/21/2021 Name: Andrew Gonzalez (71yrs) Date: Age: 71 Account: [id number] Gender: M Loc: 444 BP: Ordering Physician: May Cash Commissioned Security Officer: Rody Cross RDMS, RVT Interpreting Physician: Carina Call --- Location: [facility] --- Indications: Bilateral lower leg [...] supine position. Images were obtained using a imageloops vascular ultrasound machine. --- Venous flow and [...] Radiology ACCESSION EXAM DATE/TIME PROCEDURE ORDERING PROVIDER [id number] 10/21/2021 08:16 EDT CR Chest 1 View Frontal [id number] MAY BOGGS CPT code 58390 Reason For Exam (CR Chest 1 View [...] [id number] Computed Tomography ACCESSION EXAM DATE/TIME PROCEDURE ORDERING PROVIDER [id number] 10/22/2021 13:[address] Abdomen/Pelvis (No SRIVASTAVA, WING PO, No IV) CPT code 30109 Reason For Exam (CT Abdomen/Pelvis (No PO, [...] Imaging ACCESSION EXAM DATE/TIME PROCEDURE ORDERING PROVIDER [id number] 10/27/2021 13:14 EDT MRI Brain w/o Contrast UNASSIGNED, UNASSIGNED CPT code 63787 Reason For Exam (MRI Brain w/o Contrast) stroke Patient has SUPERVISOR ADVERTISING [employer]ERKS shunt in place, please follow Radiology protocol [...] included. Hospitalist Progress Note 10/28/2021 11:37 AM [phone]: Please page me @ [phone] for patient care issues. [phone]: Please page consumer lender for any issues@ night Subjective: Admit Date: [...] and previous indwelling tubing history of SUPERVISOR ADVERTISING [employer]PATCH CLERKS shunt # Bilateral lower extremity wounds-wound care [...] Services This report was created using the [employer] Speaking voice-activated system. Despite prompt dictation and careful editorial review, there may be subtle contextual errors in this report, due to misrecognition of the spoken word. Speech Language Pathology Facility/Department: [facility] Dysphagia Treatment Note NAME: Andrew [...] and gloves were worn throughout this session. [facility] Anticoagulation Management Service ([facility]) Inpatient Warfarin Consult HPI: Andrew Sifuentes is a 71 y.o. 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 3. [facility] will manage while inpatient and sign off at discharge. Patient resides in a SNF. 4. Will provide warfarin education including [facility] warfarin booklet, if appropriate. Brionna Le, PharmD candidate Josie Gupta RPh, PharmD [facility] Consult Service is available daily [phone]. Please search for covering pharmacist name via PerfectServe or Groups --> Pharmacy --> Anti-Coagulation Consult Pharmacist (on 3rd page). If no response via PerfectServe, please page [phone]. Follow up b/l foot wounds. No new [...] M with PMH obstructive hydrocephalus s/p SUPER[employer]ERKS shunt in 1987, needing multiple revisions and [...] limits and both old and new SUPER[employer]VERT[employer]KS shunt tubing noted. At present patient is awake, follows commands, was able to tell his name, and that he was in hospital but not oriented to time. Per documentation patient had NCSE in May 2021, was on Vimpat, but it was discontinued as there was no evidence of recurrent seizures in july 2021 by Neurology at [facility], per daughter patient was on Dilantin [...] limits and both old and new SUPER[employer] shunt tubing noted -EEG mild to moderate slow, no seizures reported -Labs reviewed -Hydrocephalus management per Neurosurgery. At present patient does not have hydrocephalus on CT head done this admission. No Neurosurgery services available as inpatient in [facility]. Patient can follow up with Neurosurgery as outpatient and if ends up needing inpatient neurosurgery requirement then may need to be transferred to [facility]. -No clear clinical signs of ventriculitis. Defer evaluation to primary medical team/ID as deemed necessary. -Discussed with daughter in detail on . She was concerned that patient has had h/o seizures, and he has been taken off seizure medication, per note documentation patient had NCSE in May 2021 when he was admitted to [facility]. Per daughter she would want patient [...] interim. This note has been generated using [employer] dictation software. It may contain incorrect words, punctuation's and spellings that were not noted in the review of the note prior to signing. This note has been generated using [employer] dictation software. It may contain incorrect words, [...] Radiology ACCESSION EXAM DATE/TIME PROCEDURE ORDERING PROVIDER [id number] 10/21/2021 15:30 EDT CR Calcaneus 2+ Views [id number] -SHRUTHI MALIK Left CPT code 03810 Reason For Exam (CR Calcaneus 2+ Views [...] Tomography ACCESSION EXAM DATE/TIME PROCEDURE ORDERING PROVIDER [id number] 10/26/2021 11:[address] Head or Brain w/o EDWIN, PLANT FLOOR AUTOMATION MANAGER, SARINA Contrast CPT code 03175 Reason For Exam (CT Head or Brain w/o Contrast) hydrocephalus. thank you Report CLINICAL INFORMATION: Hydrocephalus. Shunt. 3 mm axial cuts through the head are obtained without IV contrast. The examination is compared to a previous study dated 06/29/2014. FINDINGS: Old SUPERVIS[employer]VERTISING [employer]PATCH CLERKS shunt tubing is noted bilaterally. The new [...] clear. IMPRESSION: 1. Old and new SUPER[employer] ADVERTISING [employer]ERKS shunt tubing. 2. No hydrocephalus. 3. Atrophy [...] Imaging ACCESSION EXAM DATE/TIME PROCEDURE ORDERING PROVIDER [id number] 10/23/2021 11:08 EDT MRI Abdomen w/o Contrast WING SRIVASTAVA CPT code 29992 Reason For Exam (MRI Abdomen w/o Contrast) [...] Medicine ACCESSION EXAM DATE/TIME PROCEDURE ORDERING PROVIDER [id number] 10/21/2021 07:55 EDT NM Pulmonary Perfusion [id number] MAY BOGGS w/ Vent Aerosol CPT code 83863 A9567 Reason For Exam (NM Pulmonary Perfusion [...] Brachial Indices Extremity Bilateral Result Date: 10/22/2021 [facility] --- Ankle Brachial Index Report Patient Gurpreet RADHA: 1950 Study 10/21/2021 Name: Andrew Gonzalez (71yrs) Date: Age: 71 Account: [id number] Gender: M Loc: 444W BP: Ordering Physician: Shruthi Malik Commissioned Security Officer: Rody Cross RDMS, RVT Interpreting Physician: Carina Call --- Location: [facility] --- Indications: Foot wounds. Originally ordered as a full PVR. Ordering PLANT FLOOR AUTOMATION MANAGER had to modify the order to [...] supine position. Images were obtained using a imageloops vascular ultrasound machine. --- Arterial pressure indices: [...] EXTREMITY BILATERAL VENOUS DUPLEX Result Date: 10/21/2021 [facility] --- Lower Extremity Venous Duplex Report Patient DO GurpreetB: 1950 Study 10/21/2021 Name: Andrew Gonzalez (71yr) Date: Age: 71 Account: [id number] Gender: M Loc: 444 BP: Ordering Physician: May Cash Commissioned Security Officer: Rody Cross RDMS, RVT Interpreting Physician: Jakub, Carina --- Location: [facility] --- Indications: Bilateral lower leg [...] supine position. Images were obtained using a imageloops vascular ultrasound machine. --- Venous flow and [...] Radiology ACCESSION EXAM DATE/TIME PROCEDURE ORDERING PROVIDER [id number] 10/21/2021 08:16 EDT CR Chest 1 View Frontal [id number] MAY BOGGS CPT code 54837 Reason For Exam (CR Chest 1 View [...] Tomography ACCESSION EXAM DATE/TIME PROCEDURE ORDERING PROVIDER [id number] 10/22/2021 13:[address] Abdomen/Pelvis (No SRIVASTAVA, WING PO, No IV) CPT code 37130 Reason For Exam (CT Abdomen/Pelvis (No PO, [...] 12:48 PM Consults Speech Language Pathology Facility/Department: [facility] Dysphagia Treatment Note NAME: Andrew [...] reactivity and state change, indicative of a opek-ss-pxnytson diffuse encephalopathy of nonspecific etiology. There are [...] Easy to chew diet/cut up. NEVILLE Jones M.A.CCC/PRINCIPLE SOFTWARE ENGINEER Time session ended: 1156 Total session minutes: 23 Images from the original note were not included. Hospitalist Progress Note 10/27/2021 10:40 AM [phone]: Please page me @ [phone] for patient care issues. [phone]: Please page consumer lender for any issues@ night Subjective: Admit Date: [...] Services This report was created using the [employer] Speaking voice-activated system. Despite prompt dictation and careful editorial review, there may be subtle contextual errors in this report, due to misrecognition of the spoken word. [facility] Anticoagulation Management Service ([facility]) Inpatient Warfarin Consult HPI: Andrew Sifuentes is a 71 y.o. 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 Past Medical History: Diagnosis Date ED (erectile dysfunction) Hemorrhoids Hydrocephalus, adult (HCC) Kidney stone Neuropathy SUPERVIS[employer]ERKS (ventriculoperitoneal) shunt status Patient is newly referred [...] SNF. 4. Will provide warfarin education including [facility] warfarin booklet, if appropriate. Thank you for this consult Brionna Le, RigoD candidate Josie Gupta [facility], PharmD IRVIN Consult Service is available daily [phone]. Please search for covering pharmacist name via Definicare or Groups --> Pharmacy --> Anti-Coagulation Consult Pharmacist (on 3rd page). If no response via Definicare, please page [phone]. I cleaned under patient's finger nails with [...] status with Warfarin. Discussed with patient's staff radiographer. Will continue to monitor. Total visit time [...] concern Hydrocephalus Chronic WOODARD's - Revised SUPER[employer]ERKS shunt - daughter requested that pt have CT / MRI of brain and neurology be consulted, this was done. - "Hydrocephalus management per Neurosurgery. At present patient does not have hydrocephalus on CT head done this morning. No Neurosurgery services available as inpatient in [facility]. Patient can follow up with Neurosurgery as outpatient and if ends up needing inpatient neurosurgery requirement then may need to be transferred to [facility]. " Seizure history, unspecified - daughter requested [...] get report from nursing. Continue wound care. [facility] Anticoagulation Management Service ([facility]) Inpatient Warfarin Consult HPI: Andrew Sifuentes is a 71 y.o. 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 Past Medical History: Diagnosis Date ED (erectile dysfunction) Hemorrhoids Hydrocephalus, adult (HCC) Kidney stone Neuropathy SUPERVIS[employer]ERKS (ventriculoperitoneal) shunt status Patient is newly referred to the [facility] clinic for warfarin management. Pt was referred by Ellen B Niesha, SECURITY INVESTIGATOR-CARPET MECHANIC. Pt is on warfarin for DVT and [...] PharmD IRVIN Consult Service is available daily [phone]. Please search for covering pharmacist name via Definicare or Groups --> Pharmacy --> Anti-Coagulation Consult Pharmacist (on 3rd page). If no response via Definicare, please page [phone]. Moon daughter stated that any of patient's family can call and obtain an update on patient's status. Speech Language Pathology Facility/Department: [facility] CLINICAL BEDSIDE SWALLOW EVALUATION NAME: [...] a small bore straw. Additionally discussed with PRINCIPLE SOFTWARE ENGINEER, agreeable to assess tomorrow. Recent Chest Xray/CT [...] and liquids between bites. Treatment Plan Requires PRINCIPLE SOFTWARE ENGINEER Intervention: Yes Duration of Treatment: 2 weeks [...] Education Response: Verbalizes understanding;Needs reinforcement Therapy Time PRINCIPLE SOFTWARE ENGINEER Individual Minutes Time In: 826 Time Out: 852 Minutes: 26 NEVILLE Jones 10/26/2021 9:20 AM Comprehensive Nutrition Assessment Type and Reason for Visit: Initial (DT referral for wounds) Nutrition Recommendations/Plan: 1. Recommend to continue: Easy to Chew diet with Thin Liquids as currently ordered and safe for patient to participate in. Discussed with: RN, PLANT FLOOR AUTOMATION MANAGER, and PRINCIPLE SOFTWARE ENGINEER. PRINCIPLE SOFTWARE ENGINEER to assess tomorrow, best diet and liquid [...] Malnutrition Assessment: Malnutrition Status: Moderate malnutrition (10/25/21 9019) Context: Chronic Illness Findings of the 6 [...] & deltoids),Scapula (trapezius) Fluid Accumulation: Mild Extremities Director Of Coding Strength: Not Performed Nutrition Assessment: 71 year [...] a small bore straw. Additionally discussed with PRINCIPLE SOFTWARE ENGINEER, agreeable to assess tomorrow. Nutrition Related Findings: [...] Anthropometric Measures: Height: 5' 7.01" (170.2 cm) Sultan Body Weight (IBW): 148 lbs (67 kg) [...] On: Kcal/kg Weight Used for Energy Requirements: Sultan (67.15 kg) Energy (kcal/day): 5153-4497 (27-32 kcal/kg IBW) --> increased need d/t wounds Weight Used for Protein Requirements: Sultan (67.15 kg) Protein (g/day): 67-101 (1.0-1.5 g protein/kg IBW) Method Used for Fluid Requirements: Other (Comment) Fluid (ml/day): 6489-0244 mL daily or per MD Nutrition Diagnosis: [...] Plan of Care discussed with: Patient, RN, PLANT FLOOR AUTOMATION MANAGER Edwin Goals: Goals: other (specify) Specify Other [...] to determine Puja Almanza RD, LD Contact: *[phone] [address] Definicare Hematology/Oncology Attending Progress Note SUBJECTIVE: Patient seen [...] IRON, TIBC, FERRITIN No results found for: [id number] No results found for: FOLATE PT 15.6 INR 1.5 CA 19 - 9 is 17 Protein S 138% Protein C 186% ASSESSMENT AND PLAN GI input appreciated. Patient continues with subtherapeutic INR. GI input appreciated. Discussed with patient's staff radiographer. Will continue monitor. Total visit time > 35 minutes. [facility] Anticoagulation Management Service ([facility]) Inpatient Warfarin Consult HPI: Andrew Sifuentes is a 71 y.o. 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 Past Medical History: Diagnosis Date ED (erectile dysfunction) Hemorrhoids Hydrocephalus, adult (HCC) Kidney stone Neuropathy SUPERVISOR ADVERTISING [employer]PATCH CLERKS (ventriculoperitoneal) shunt status Patient is newly referred [...] SNF. 4. Will provide warfarin education including [facility] warfarin booklet, if appropriate. Thank you for this consult Brionna Le, PharmD candidate Josie Gupta RPh, PharmD [facility] Consult Service is available daily [phone]. Please search for covering pharmacist name via Definicare or Groups --> Pharmacy --> Anti-Coagulation Consult Pharmacist (on 3rd page). If no response via Definicare, please page [phone]. Progress Note 10/25/2021 9:36 AM Name: Andrew [...] concern Hydrocephalus Chronic WOODARD's - Revised SUPER[employer]VERT[employer]PATCH [employer]ERKS shunt DC planning - 10/25/21: INR subtherapeutic, [...] concern Hydrocephalus Chronic WOODARD's - Revised SUPERVISOR [employer]VERTISING [employer]ERKS shunt DC planning - Can be DC'd back to ECF once MRI done if no acute findings, MRI is done, defer to hem / onc on plan for that, awaiting chest PA with fluoro Patient seen and chart reviewed. Consult dictated. Will ask GI to assess concerning the etiology of liver lesions. Will continue to monitor. [facility] Anticoagulation Management Service ([facility]) Inpatient Warfarin Consult HPI: Andrew Sifuentes is a 71 y.o. 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 3. [facility] will manage while inpatient and sign off at discharge. Patient resides in a SNF. 4. Will provide warfarin education including [facility] warfarin booklet, if appropriate. Thank you for this consult Brionna Le, PharmD candidate Josie Gupta RPh, PharmD [facility] [facility] Consult Service is available daily [phone]. Please search for covering pharmacist name via Razientve or Groups --> Pharmacy --> Anti-Coagulation Consult Pharmacist (on 3rd page). If no response via PerfectServe, please page [phone]. Follow up foot wounds Patient is more alert this morning. Waffle boots are on Ulcer left heel ulcer right foot Foot drop PE, chart reviewed. Patient relates that he does not walk at home. c ontinue wound care. Images from the original note were not included. Hospitalist Progress Note 10/23/2021 1:47 PM [phone]: Please page me ([phone]) or perfect serve me for patient care issues. [phone]: Please page I[facility] night Hospitalist for any issues. Subjective: Admit Date: 10/21/2021 PCP: MONIKA STALEY MD Room#: 711/1466 Admitting Synopsis: 71 y/o male presents from [...] concern Hydrocephalus Chronic WOODARD's - Revised [employer] shunt DC planning - Can be DC'd [...] Hydrocephalus, adult (HCC) Kidney stone Neuropathy [employer] (ventriculoperitoneal) shunt status Medications: sodium chloride warfarin [...] of Hospitalist Medicine Inpatient Medical Services PAGER: [phone] Nutrition rescreen completed. Pt referred to RD for foot ulcers. Occupational Therapy Facility/Department: [facility] Occupational Therapy Initial Assessment Name: Andrew Sifuentes : 1950 Date of Service: 10/23/2021 OT eval and treat orders received. Chart reviewed. Per notes pt from [facility], is Boaz lift at baseline, non-ambulatory, and requires assist for all ADLs. Will d/c OT orders. Elizabeth Gutierrez OT Physical Therapy Facility/Department: [address] Physical Therapy Initial Assessment Name: Andrew Sifuentes : 1950 Date of Service: 10/23/2021 PT eval and treat orders received. Chart reviewed. Per notes pt from [facility], is Boaz lift at baseline, non-ambulatory. Will d/c PT orders. Lloyd Silva PT [facility] Anticoagulation Management Service ([facility]) Inpatient Warfarin Consult HPI: Andrew Sifuentes is a 71 y.o. 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 Past Medical History: Diagnosis Date ED (erectile dysfunction) Hemorrhoids Hydrocephalus, adult (HCC) Kidney stone Neuropathy SUPER[employer] (ventriculoperitoneal) shunt status Patient is newly referred [...] PharmD IRVIN Consult Service is available daily [phone]. Please search for covering pharmacist name via Definicare or Groups --> Pharmacy --> Anti-Coagulation Consult Pharmacist (on 3rd page). If no response via Razientve, please page [phone]. Department of Podiatry Attending Consult Note Reason for Consult: Wound care Requesting Physician: MD Oksana CHIEF COMPLAINT: Foot wounds HISTORY OF PRESENT ILLNESS: The patient is a 71 y.o. male with b/l foot wounds. Patient is awake , but not answering questions. Past Medical History: Diagnosis Date ED (erectile dysfunction) Hemorrhoids Hydrocephalus, adult (HCC) Kidney stone Neuropathy SUPER[employer]VERT[employer] (ventriculoperitoneal) shunt status Past Surgical History: Procedure [...] included. Hospitalist Progress Note 10/22/2021 6:33 AM [phone]: Please page me ([phone]) or perfect serve me for patient care issues. [phone]: Please page [facility] night Hospitalist for any issues. Subjective: Admit Date: 10/21/2021 PCP: MONIKA STALEY MD Room#: 505/1461 Admitting Synopsis: 71 y/o male presents from [...] MRI if concern Hydrocephalus - Revised SUPER[employer]KS shunt Interval History: No overnight issues. 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 Hospitalist Progress Note 10/21/2021 5:31 PM [phone]: Please page me ([phone]) or perfect serve me for patient care issues. [phone]: Please page IMS night Hospitalist for any [...] need chronic OAC Hydrocephalus - Revised SUPER[employer]VERT[employer]ERKS shunt Interval History: No overnight issues. Denies [...] Hydrocephalus, adult (HCC) Kidney stone Neuropathy SUPERVIS[employer]VERT[employer]KS (ventriculoperitoneal) shunt status Medications: sodium chloride baclofen [...] of Hospitalist Medicine Inpatient Medical Services PAGER: [phone] Family member Triny, sister to patient, called back to the hospital stating that she was returning a call from a provider. Her phone number is [phone] to speak with whomever was attempting to reach out to her. documented in this encounter [facility] Work Phone: 10-17-2021 Miscellaneous Notes Mr. Sifuentes missed his hospital stay follow-up appointment w. Dr. Lim today. Called to Reschedule. Could not get through. "Subscriber you have dialed not in service" - was the automated voice mail. Unable to leave VM. No other phone# available. Ramya Negro [employer] [facility] Neurosurgery/Ortho Spine documented in this encounter [facility] 08-19-2021 Note [facility] 08-19-2021 Note [facility] 08-18-2021 Note [facility] 08-18-2021 Note [facility] 08-17-2021 Note [facility] 08-17-2021 Note [facility] 08-16-2021 Note [facility] 08-16-2021 Note HNO ID: [id number] Author: Katt Kelsey DO Service: Hospital Medicine Author Type: Physician Type: Plan of Care Filed: 08/16/2021 12:26 PM Note Text: Spoke with RN that line is a PICC. Katt Kelsey DO 08/16/2021 12:26 PM [facility] 08-16-2021 Note [facility] 08-16-2021 Note [facility] 08-15-2021 Note [facility] 08-15-2021 Note [facility] 08-15-2021 Note [facility] 08-14-2021 Note [facility] 08-14-2021 Note [facility] 08-13-2021 Note [facility] 08-13-2021 Note [facility] 08-13-2021 Note [facility] 08-13-2021 Note HNO ID: [id number] Author: Ambar Note Service: ? Author Type: ? Type: Progress Notes Filed: 08/13/2021 3:10 AM Note Text: Epic Scheduled Downtime: 08/13/2021 1:08:47 AM to 08/13/2021 2:53:47 AM [facility] 08-12-2021 Note [facility] 08-12-2021 Note [facility] 08-12-2021 Note [facility] 08-11-2021 Note [facility] 08-11-2021 Note [facility] 08-11-2021 Note [facility] 08[facility]11-2021 Note [facility] 08-11-2021 Note [facility] 08-11-2021 Note [facility] 08-10-2021 Note [facility] 08-10-2021 Note [facility] 08-10-2021 Note [facility] 08-10-2021 Note [facility] 08-09-2021 Note HNO ID: [id number] Author: Shannon Brooks RN Service: ? Author Type: Registered Nurse Type: Nursing Progress Note Filed: 08/09/2021 7:33 PM Note Text: Report called to unit [facility] 08-09-2021 Note [facility] 08-09-2021 Note [facility] 08-09-2021 Note [facility] 08-08-2021 Note [facility] 08-08-2021 Note [facility] 08-08-2021 Note [facility] 08-07-2021 Note [facility] 08[facility]07-2021 Note [facility] 08[facility]07-2021 Note [facility] 08-07-2021 Note [facility] 08-07-2021 Note [facility] 08-06-2021 Note [facility] 08-06-2021 Note [facility] 08-06-2021 Note [facility] 08-05-2021 Note [facility] 08[facility]05-2021 Note [facility] 08-05-2021 Note [facility] 08-04-2021 Note [facility] 08-04-2021 Note [facility] 08-04-2021 Note [facility] 08-03-2021 Note [facility] 08-03-2021 Note [facility] 08-03-2021 Note [facility] 08-02-2021 Note [facility] 08-02-2021 Note [facility] 08-02-2021 Note [facility] 08-01-2021 Note [facility] 08-01-2021 Note [facility] 08[facility]01-2021 Note [facility] 08-01-2021 Note [facility] 07-31-2021 Note [facility] 07-31-2021 Note [facility] 07-30-2021 Note [facility] 07-30-2021 Note [facility] 07[facility]30-2021 Note [facility] 07-29-2021 Note [facility] 07[facility]29-2021 Note [facility] 07-29-2021 Note [facility] 07-28-2021 Note [facility] 07-28-2021 Note [facility] 07-28-2021 Note [facility] 07-27-2021 Note [facility] 07-27-2021 Note [facility] 07[facility]27-2021 Note [facility] 07-26-2021 Note [facility] 07-26-2021 Note [facility] 07-26-2021 Note [facility] 07-26-2021 [facility] 07-26-2021 [facility] 07-25-2021 [facility] 07-25-2021 Note [facility] 07-25-2021 Note [facility] 07-25-2021 Note [facility] 07-24-2021 Note [facility] 07-24-2021 Note [facility] 07-24-2021 Note [facility] 07-23-2021 Note [facility] 07[facility]23-2021 Note [facility] 07-23-2021 Note [facility] 07[facility]23-2021 Note [facility] 07-23-2021 Note [facility] 07-22-2021 Note [facility] 07-22-2021 Note [facility] 07[facility]22-2021 Note [facility] 07-21-2021 Note [facility] 07[facility]21-2021 Note [facility] 07-21-2021 Note [facility] 07-21-2021 History of Past i [...] of fever, elevated WBC, RP hematoma SUPER[employer]VERT[employer] shunt tip grew anaerobic gram positive cocci 06/08/2021 PLAN: SUPERVISOR [employer]VERTISING [employer]ER[employer] shunt tip sent to [facility] [...] - following CSF studies; 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 for EMERGENCY CARE TECH infection at this time - ID following- Continue antibiotics: Meropenem -CSF leak from EVD site, appreciate NSGY recs> stat repeat CTH on 06/07 d/t concern for CSF leak, cephalematoma, CTH unremarkable -Tolerating TF - SBT WTE - PICC line placed documented as of this encounter (statuses as of 10/17/2021) [facility]03-17-2022 [facility]03-16-2022 [facility]03-16-2022 [facility]03-16-2022 Note [facility]03-16-2022 [facility] 07-19-2021 [facility]03-15-2022 [facility]03-15-2022 [facility]03-14-2022 [facility]03-14-2022 [facility]03-13-2022 [facility]03-13-2022 [facility]03-12-2022 Note [facility]03-12-2022 [facility] 07-15-2021 [facility]03-11-2022 [facility]03-10-2022 [facility]03-10-2022 [facility]03-10-2022 [facility]03-09-2022 [facility]03-09-2022 [facility]03-09-2022 Note [facility]03-09-2022 [facility] 07-12-2021 [facility]03-08-2022 [facility]03-07-2022 [facility]03-07-2022 [facility]03-07-2022 [facility]03-07-2022 [facility]03-06-2022 [facility]03-06-2022 Note [facility]03-05-2022 [facility] 07-09-2021 [facility]03-05-2022 [facility]03-05-2022 [facility]03-05-2022 NoteHNO ID: [id number] Author: Lizette Valderrama RN Service: Nursing Author Type: Registered Nurse Type: Nursing Progress Note Filed: 07/09/2021 1:41 AM Note Text: Report called to [facility]03-04-2022 NoteHNO ID: [id number] Author: Lizette Valderrama RN Service: Nursing Author Type: Registered Nurse Type: Nursing Progress Note Filed: 07/08/2021 8:57 PM Note Text: [address] back to PACU [address] [place], [place] 3857203-04-2022 NoteHNO ID: [id number] Author: Sukhi Chery APRN.CNP Service: ? Author Type: Nurse Practitioner Type: Progress Notes Filed: 07/09/2021 6:46 PM Note Text: Connected Care Unit Progress Note Patient Name: Andrew Sifuentes Patient Facility: [facility] Admit Date 06/28/2021 Level of Care: Skilled [...] Dept Phone 07/21/2021 11:00 AM NICOLE LIM [phone] HPI: (Per Dr. Beltran) Andrew Sifuentes is being seen today for prison facility (SNF) admission AND management of weakness, tube feed, infected retroperitoneal infection and seizure. ? This is a 71 year old male who presents from [facility] with primary admitting diagnosis of Seizure, enteral [...] brain concerning for hydrocephalus. 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 Ordered to transfer to [facility] ED for evaluation of neurological [...] changes in co (more content not included)... [facility]03-04-2022 [facility]03-04-2022 [facility]03-02-2022 NoteHNO ID: [id number] Author: Sukhi Chery APRN.CNP Service: ? Author Type: Nurse Practitioner Type: Progress Notes Filed: 07/09/2021 6:20 PM Note Text: Connected Care Unit Progress Note Patient Name: Andrew Sifuentes Patient Facility: [facility] Admit Date 06/28/2021 Level of Care: Skilled [...] Dept Phone 07/21/2021 11:00 AM NICOLE LIM [phone] HPI: (Per Dr. Beltran) Andrew Sifuentes is being seen today for prison facility (SNF) admission AND management of weakness, tube feed, infected retroperitoneal infection and seizure. ? This is a 71 year old male who presents from [facility] with primary admitting diagnosis of Seizure, enteral [...] brain concerning for hydrocephalus. 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 (more content not included)...[facility]02-28-2022 NoteHNO ID: [id number] Author: Sukhi Chery APRN.CARPET MECHANIC Service: ? Author Type: Nurse Practitioner Type: Progress Notes Filed: 07/09/2021 6:07 PM Note Text: Connected Care Unit Progress Note Patient Name: Andrew Sifuentes Patient Facility: [facility] Admit Date 06/28/2021 Level of Care: Skilled [...] but nursing notes it was drawn by decorator street and building as vancomycin was being infused; reordered trough - PICC Line Intact - No fevers or chills per patient or staff (R53.81) Debility - Certify therapies - Maintain high falls risk precautions - pt/staff verbalize understanding validated via teach back - Monitor safety awareness Appointments for Next 60 Days Date Time Provider Location Dept Phone 07/21/2021 11:00 AM NICOLE LIM [phone] HPI: (Per Dr. Beltran) Andrew Sifuentes is being seen today for prison facility (SNF) admission AND management of weakness, tube feed, infected retroperitoneal infection and seizure. ? This is a 71 year old male who presents from [facility] with primary admitting diagnosis of Seizure, enteral [...] brain concerning for hydrocephalus. 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 OBJECTIVE: Labs/diagnostics: 07/04/2021 Glucose=91 Oc=793 K=3.8 We=644 CO2=24 BUN=14 Creatinine=0.5 ENG=553 Ca=9.0 Protein,Total=6.7 Albumin=3.6 QdfMqwy=788 AST=15 ALT=21 Bilirubin,Totall=0.5 WBC=10.7 RBC=4.04 Hgb=10.9 Hct=35.3 Cmhyozux=725 VancomycinTr (more content not included)...[facility]02-24-2022 NoteHNO ID: [id number] Author: Sukhi Chery APRN.KIM Service: ? Author Type: Nurse Practitioner Type: Progress Notes Filed: 07/09/2021 5:43 PM Note Text: Connected Care Unit Progress Note Patient Name: Andrew Sifuentes Patient Facility: [facility] Admit Date 06/28/2021 Level of Care: Skilled [...] Phone 07/21/2021 11:00 AM NICOLE LIM [facility] [phone] HPI: (Per Dr. Beltran) Andrew Sifuentes is being seen today for prison facility (SNF) admission AND management of weakness, tube feed, infected retroperitoneal infection and seizure. ? This is a 71 year old male who presents from [facility] with primary admitting diagnosis of Seizure, enteral [...] brain concerning for hydrocephalus. 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 OBJECTIVE: Labs/diagnostics: 07/01/2021 Glucose=83 Yr=810 K=4.1 Eb=667 CO2=27 BUN=22 Creatinine=0.6 OZS=271 Ca=8.7 WBC=10.8 RBC=3.40 Hgb=9.3 Hct=29.9 Czgyzvjr=478 Vital Signs: BP 128/80 Pulse 77 Temp 36.7 ?C (98 ?F) Resp 20 Ht 182.9 cm (6') Wt 113 kg (249 lb 3.2 oz) SpO2 96% BMI 33.80 kg/m? Physical Exam: Physical Exam Vitals reviewed. Constitutional: General: He is not in acute distress. (more content not included)...[facility]02-22-2022 [facility]02-22-2022 [facility]02-21-2022 [facility]02-21-2022 Note [facility]02-20-2022 [facility] 06-26-2021 [facility]02-19-2022 [facility]02-19-2022 [facility]02-18-2022 [facility]02-18-2022 [facility]02-18-2022 [facility]02-17-2022 [facility]02-17-2022 Note [facility]02-17-2022 [facility] 06-22-2021 NoteHNO ID: [id number] Author: Xiomy England RN Service: Nursing Author Type: Registered Nurse Type: Nursing Progress Note Filed: 06/22/2021 7:22 PM Note Text: RT contacted as pt has wheezing auscultated and same auditory. For prn Treatment.[facility]02-16-2022 [facility]02-16-2022 [facility]02-16-2022 [facility]02-16-2022 [facility]02-16-2022 [facility]02-15-2022 [facility]02-15-2022 Note [facility]02-15-2022 [facility] 06-21-2021 [facility]02-14-2022 [facility]02-14-2022 [facility]02-14-2022 [facility]02-14-2022 [facility]02-14-2022 [facility]02-13-2022 [facility]02-13-2022 Note [facility]02-13-2022 [facility] 06[facility]19-2021 [facility]02-13-2022 [facility]02-12-2022 [facility]02[facility]12-2022 [facility]02-12-2022 [facility]02-12-2022 [facility]02-12-2022 [facility]02-12-2022 Note [facility]02-12-2022 NoteHNO ID: [id number] Author: Ambar Note Service: ? Author Type: ? Type: Progress Notes Filed: 06/18/2021 3:10 AM Note Text: Epic Scheduled Downtime: 06/18/2021 1:00:00 AM to 06/18/2021 2:27:00 [facility] Note [facility]02-11-2022 [facility] 06-17-2021 [facility]02-11-2022 [facility]02-11-2022 [facility]02-10-2022 [facility]02-10-2022 [facility]02-10-2022 [facility]02-10-2022 [facility]02-10-2022 Note [facility]02-10-2022 [facility] 06-15-2021 [facility]02-09-2022 NoteHNO ID: [id number] Author: Lamonte Kline DO Service: Neurology ICU Author Type: Resident Type: Plan of Care Filed: 06/15/2021 6:21 PM Note Text: Patient's daughter Melissa updated on plan of care and critical condition, all questions answered.[facility]02-09-2022 [facility]02-09-2022 [facility]02-09-2022 [facility]02-09-2022 [facility]02-09-2022 Note [facility]02-09-2022 [facility] 06-15-2021 [facility]02-08-2022 [facility]02-08-2022 [facility]02-08-2022 [facility]02-08-2022 [facility]02-07-2022 [facility]02-07-2022 [facility]02-07-2022 Note [facility]02-07-2022 [facility] 06-12-2021 [facility]02[facility]05-2022 [facility]02-05-2022 [facility]02-04-2022 [facility]02[facility]04-2022 [facility]02-04-2022 Note [facility]02-04-2022 [facility] 06-09-2021 [facility]02-03-2022 [facility]02-03-2022 [facility]02-03-2022 [facility]02-02-2022 [facility]02-02-2022 NoteHNO ID: [id number] Author: Luis Diaz RN Service: ? Author Type: Registered Nurse Type: Nursing Progress Note Filed: 06/08/2021 9:23 AM Note Text: Patient off the floor to OR at this time.[facility]02-02-2022 [facility]02-02-2022 [facility] 06-08-2021 NoteHNO ID: [id number] Author: Eloise Samuel RN Service: ? Author Type: Registered Nurse Type: Nursing Progress Note Filed: 06/08/2021 12:46 AM Note Text: Dr. Brito notified of changes throughout shift. No new [facility] 06-07-2021 NoteHNO ID: [id number] Author: Eloise Samuel RN Service: ? Author Type: Registered Nurse Type: Nursing Progress Note Filed: 06/07/2021 8:01 PM Note Text: Neuro surg CARPET MECHANIC notified of downward deviation of pupils. No new orders at this time.[facility]02-01-2022 [facility]02-01-2022 [facility]02-01-2022 [facility]02[facility]01-2022 [facility]01-31-2022 [facility]01-31-2022 [facility]01-31-2022 Note [facility]01-31-2022 [facility] 06-05-2021 [facility]01-30-2022 [facility]01-30-2022 [facility]01-29-2022 [facility]01-29-2022 NoteHNO ID: [id number] Author: Jermaine Miller PA-C Service: Neurosurgery Author Type: Physician Pancake Professional Type: Plan of Care Filed: 06/04/2021 1:59 PM Note Text: Discussed with Dr. Charles CT brain results. At this time, continue with EVD at 5 [facility]01-29-2022 [facility] 06-04-2021 [facility]01-28-2022 [facility]01-28-2022 NoteHNO ID: [id number] Author: Mauricio Frank DO Service: Neurology ICU Author Type: Physician Type: Plan of Care Filed: 06/03/2021 2:38 PM Note Text: I spoke with Melissa and updated her over the phone. Mauricio Frank, [facility]01-28-2022 [facility]01-28-2022 [facility]01-27-2022 [facility]01-27-2022 [facility]01-27-2022 Note [facility]01-26-2022 [facility] 06-01-2021 [facility]01-26-2022 [facility] [facility]01-25-2022 Note [facility]01[facility] Leg swelling- Primary Swelling of limb Acute deep vein thrombosis (DVT) of proximal vein of lower extremity, unspecified laterality (HCC) DVT, lower extremity, recurrent, unspecified laterality (HCC) Moderate malnutrition (HCC) Malnutrition of moderate degree History of seizures Personal history of other disorders of nervous system and sense organs documented in this encounter [facility] Work Phone: Evaluation noteNo assessment information available [facility] Work Phone: Evaluation note* Diagnosis Other fatigue- Primary documented in this encounter [facility] Work Phone: Evaluation note* Diagnosis Heel ulceration, left, with unspecified severity (HCC)- Primary documented in this encounter [facility] Work Phone: Evaluation note* Diagnosis Fall, initial encounter- Primary Anticoagulated Encounter for long-term (current) use of anticoagulants documented in this encounter [facility] Work Phone: Evaluation note* Diagnosis Left flank pain- Primary Abdominal pain, unspecified site Calculus of ureter Disease of prostate Unspecified disorder of prostate BPH with urinary obstruction Hypertrophy of prostate with urinary obstruction and other lower urinary tract symptoms (LUTS) [facility]* Diagnosis Left flank pain Abdominal pain, unspecified site Calculus of ureter [facility]* Diagnosis Left flank pain- Primary Abdominal pain, unspecified site BPH with urinary obstruction Hypertrophy of prostate with urinary obstruction and other lower urinary tract symptoms (LUTS) History of kidney stones documented in this encounter [facility] HealthInstructions* Name Dates Details Instructions not documented [id number] Work Phone: Instructions* Name Dates Details Instructions not documented [id number] [place] Work Phone: Reason for referral (narrative)No [facility] for [facility]: Advance Directives No Advanced Directives Records FoundDocuments on File Type Date Recorded Patient Wig Dresser Expl anation Advance Directives and Living Will Power of Hand Candy Molder Documents on File Type Date Recorded Patient Wig Dresser Expl anation Advance Directive(s) 06/02/2021 2:45 PM [...] Relationship: 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 Adult Children (bilingual call center representative) Documents on File Type Date Recorded Patient Wig Dresser Expl anation ACP-Advance Directive ACP-Power of Hand Candy Molder Latest Code Status on File Code Status Date Activated Date Inactivated Comments Full Code 10/21/2021 4:09 AM Healthcare Agents on File Name Relationship Healthcare Agent Relationshi p Communication Melissakb Dengyer Child Primary Decision Maker deann Gurpreet Child Secondary Decision Maker Documents on File Type Date Recorded Patient Wig Dresser Expl anation ACP-Advance Directive ACP-Power of Hand Candy Molder ACP-Do Not Resuscitate 11/01/2021 7:03 AM Latest Code Status on File Code Status Date Activated Date Inactivated Comments Full Code 10/21/2021 4:09 AM 10/29/2021 7:25 PM Healthcare Agents on File Name Relationship Healthcare Agent Relationshi p Communication Melissakb Dengyer Child Primary Decision Maker deann Gurpreet Child Secondary Decision Maker Documents on File Type Date Recorded Patient Wig Dresser Expl anation ACP-Do Not Resuscitate 11/03/2021 10:15 AM ACP-Do Not Resuscitate 11/01/2021 7:03 AM Healthcare Agents on File Name Relationship Healthcare Agent Relationshi p Communication Melissa Gurpreet Child Primary Decision Maker deann Gurpreet Child Secondary Decision Maker Documents on File Type Date Recorded Patient Wig Dresser Expl anation ACP-Do Not Resuscitate 11/03/2021 10:15 [...] Documents on File Type Date Recorded Patient Wig Dresser Expl anation DNR (Do Not Resuscitate) 10/31/2021 DNR (Do Not Resuscitate) 10/21/2021 Documents on File Type Date Recorded Patient Wig Dresser Expl anation DNR (Do Not Resuscitate) 10/31/2021 [...] WORK LABWORK Chief Complaint LAB WORK LABWORK CORRECTION LAB WORK CORRECTION LABWORK Chief Complaint LAB WORK LABWORK CORRECTION LAB WORK CORRECTION LABWORK LABWORK LABWORK CORRECTION LAB WORK CORRECTION LABWORK CORRECTION LAB WORK LABWORK CORRECTION LAB WORK LABWORK CORRECTION LABWORK Chief Complaint LAB WORK LABWORK CORRECTION LAB WORK CORRECTION LABWORK LABWORK LABWORK CORRECTION LAB WORK CORRECTION LABWORK CORRECTION LAB WORK LABWORK CORRECTION LAB WORK LABWORK CORRECTION LABWORK CORRECTION LABWORK LABWORK Chief Complaint LAB WORK LABWORK CORRECTION LAB WORK CORRECTION LABWORK LABWORK LABWORK CORRECTION LAB WORK CORRECTION LABWORK CORRECTION LAB WORK LABWORK CORRECTION LAB WORK LABWORK CORRECTION LABWORK CORRECTION LABWORK LABWORK CORRECTION LAB WORK Chief Complaint LABWORK CORRECTION LAB WORK CORRECTION LABWORK LABWORK LABWORK CORRECTION LAB WORK CORRECTION LABWORK CORRECTION LAB WORK LABWORK CORRECTION LAB WORK LABWORK CORRECTION LABWORK CORRECTION LABWORK LABWORK LABWORK CORRECTION LAB WORK Chief Complaint LABWORK CORRECTION LAB WORK CORRECTION LABWORK LABWORK LABWORK CORRECTION LAB WORK CORRECTION LABWORK CORRECTION LAB WORK LABWORK CORRECTION LAB WORK LABWORK CORRECTION LABWORK CORRECTION LABWORK LABWORK LABWORK CORRECTION LAB WORK LABWORK CORRECTION LABWORK CORRECTION LAB WORK CORRECTION LABWORK Chief Complaint CORRECTION LAB WOR K CORRECTION LABWORK LABWORK LABWORK CORRECTION LAB WORK CORRECTION LABWORK CORRECTION LAB WORK LABWORK CORRECTION LAB WORK LABWORK CORRECTION LABWORK CORRECTION LABWORK LABWORK LABWORK CORRECTION LAB WORK LABWORK CORRECTION LABWORK CORRECTION LAB WORK CORRECTION LABWORK CORRECTION LAB WORK Chief Complaint CORRECTION LABWORK LABWORK LABWORK CORRECTION LAB WORK CORRECTION LABWORK CORRECTION LAB WORK LABWORK CORRECTION LAB WORK LABWORK CORRECTION LABWORK CORRECTION LABWORK LABWORK LABWORK CORRECTION LAB WORK LABWORK CORRECTION LABWORK CORRECTION LAB WORK CORRECTION LABWORK LABWORK CORRECTION LAB WORK Chief Complaint CORRECTION LAB WOR K CORRECTION LABWORK CORRECTION LAB WORK LABWORK CORRECTION LAB WORK LABWORK CORRECTION LABWORK CORRECTION LABWORK LABWORK LABWORK CORRECTION LAB WORK LABWORK CORRECTION LABWORK CORRECTION LAB WORK CORRECTION LABWORK LABWORK LABWORK CORRECTION LAB WORK CORRECTION PATIENT CORRECTION LABWORK CORRECTION LABWORK Chief Complaint LABWORK CORRECTION LAB WORK LABWORK CORRECTION LABWORK CORRECTION LABWORK LABWORK LABWORK CORRECTION LAB WORK LABWORK CORRECTION LABWORK CORRECTION LAB WORK CORRECTION LABWORK LABWORK LABWORK CORRECTION LAB WORK CORRECTION PATIENT CORRECTION LABWORK CORRECTION LABWORK CORRECTION LAB WORK Chief Complaint LABWORK CORRECTION LABWORK CORRECTION LABWORK LABWORK LABWORK CORRECTION LAB WORK LABWORK CORRECTION LABWORK CORRECTION LAB WORK CORRECTION LABWORK LABWORK LABWORK CORRECTION LAB WORK CORRECTION PATIENT CORRECTION LABWORK CORRECTION LABWORK CORRECTION LAB WORK CORRECTION LAB WORK CORRECTION LAB WORK Chief Complaint LABWORK LABWORK CORRECTION LAB WORK CORRECTION PATIENT CORRECTION LABWORK CORRECTION LABWORK CORRECTION LAB WORK CORRECTION LAB WORK CORRECTION LAB WORK CORRECTION LABWORK CORRECTION LABWORK LABWORK CORRECTION LAB WORK LABWORK Chief Complaint CORRECTION LAB WOR K CORRECTION PATIENT CORRECTION LABWORK CORRECTION LABWORK CORRECTION LAB WORK CORRECTION LAB WORK CORRECTION LAB WORK CORRECTION LABWORK CORRECTION LABWORK LABWORK CORRECTION LAB WORK LABWORK CORRECTION LABWORK Chief Complaint CORRECTION PATIENT CORRECTION LABWORK CORRECTION LABWORK CORRECTION LAB WORK CORRECTION LAB WORK CORRECTION LAB WORK CORRECTION LABWORK CORRECTION LABWORK LABWORK CORRECTION LAB WORK LABWORK CORRECTION LABWORK CORRECTION LABWORK Chief Complaint CORRECTION LABWORK CORRECTION LAB WORK CORRECTION LAB WORK CORRECTION LAB WORK CORRECTION LABWORK CORRECTION LABWORK LABWORK CORRECTION LAB WORK LABWORK CORRECTION LABWORK CORRECTION LABWORK CORRECTION LABWORK Chief Complaint CORRECTION LABWORK CORRECTION LAB WORK CORRECTION LAB WORK CORRECTION LAB WORK CORRECTION LABWORK CORRECTION LABWORK LABWORK CORRECTION LAB WORK LABWORK CORRECTION LABWORK CORRECTION LABWORK CORRECTION LABWORK CORRECTION LABWORK Chief Complaint CORRECTION LABWORK LABWORK CORRECTION LAB WORK LABWORK CORRECTION LABWORK CORRECTION LABWORK CORRECTION LABWORK CORRECTION LABWORK CORRECTION LABWORK LABWORK CORRECTION LABWORK Chief Complaint LABWORK CORRECTION LAB WORK LABWORK CORRECTION LABWORK CORRECTION LABWORK CORRECTION LABWORK CORRECTION LABWORK CORRECTION LABWORK LABWORK LABWORK CORRECTION LABWORK CORRECTION LAB WORK CORRECTION LABWORK CORRECTION LAB WORK Chief Complaint LABWORK CORRECTION LAB WORK LABWORK CORRECTION LABWORK CORRECTION LABWORK CORRECTION LABWORK CORRECTION LABWORK CORRECTION LABWORK LABWORK LABWORK CORRECTION LABWORK CORRECTION LAB WORK CORRECTION LABWORK CORRECTION LAB WORK CORRECTION LABWORK Chief Complaint LABWORK CORRECTION LAB WORK LABWORK CORRECTION LABWORK CORRECTION LABWORK CORRECTION LABWORK CORRECTION LABWORK CORRECTION LABWORK LABWORK LABWORK CORRECTION LABWORK CORRECTION LAB WORK CORRECTION LABWORK CORRECTION LAB WORK CORRECTION LABWORK LABWORK Chief Complaint CORRECTION LABWORK CORRECTION LABWORK CORRECTION LABWORK CORRECTION LABWORK CORRECTION LABWORK LABWORK LABWORK CORRECTION LABWORK CORRECTION LAB WORK CORRECTION LABWORK CORRECTION LAB WORK CORRECTION LABWORK LABWORK CORRECTION LABWORK Chief Complaint CORRECTION LABWORK CORRECTION LABWORK CORRECTION LABWORK CORRECTION LABWORK CORRECTION LABWORK LABWORK LABWORK CORRECTION LABWORK CORRECTION LAB WORK CORRECTION LABWORK CORRECTION LAB WORK CORRECTION LABWORK LABWORK CORRECTION LABWORK LABWORK Chief Complaint CORRECTION LABWORK LABWORK LABWORK CORRECTION LABWORK CORRECTION LAB WORK CORRECTION LABWORK CORRECTION LAB WORK CORRECTION LABWORK LABWORK CORRECTION LABWORK LABWORK CORRECTION LAB WORK CORRECTION LAB WORK CORRECTION LABWORK Chief Complaint LABWORK CORRECTION LABWORK LABWORK CORRECTION LAB WORK CORRECTION LAB WORK CORRECTION LABWORK CORRECTION LABWORK CORRECTION LAB WORK CORRECTION LAB WORK CORRECTION LAB WORK LABWORK CORRECTION LABWORK Chief Complaint CORRECTION LAB WOR K CORRECTION LAB WORK CORRECTION LABWORK CORRECTION LABWORK CORRECTION LAB WORK CORRECTION LAB WORK CORRECTION LAB WORK LABWORK CORRECTION LABWORK LABWORK CORRECTION LAB WORK CORRECTION LAB WORK Chief Complaint CORRECTION LAB WOR K CORRECTION LABWORK CORRECTION LABWORK CORRECTION LAB WORK CORRECTION LAB WORK CORRECTION LAB WORK LABWORK CORRECTION LABWORK LABWORK CORRECTION LAB WORK CORRECTION LAB WORK Chief Complaint CORRECTION LABWORK CORRECTION LABWORK CORRECTION LAB WORK CORRECTION LAB WORK CORRECTION LAB WORK LABWORK CORRECTION LABWORK LABWORK CORRECTION LAB WORK CORRECTION LAB WORK CORRECTION LABWORK LABWORK LABWORK Chief Complaint CORRECTION LAB WOR K CORRECTION LAB WORK CORRECTION LAB WORK LABWORK CORRECTION LABWORK LABWORK CORRECTION LAB WORK CORRECTION LAB WORK CORRECTION LABWORK LABWORK LABWORK LABWORK LABWORK LABWORK Chief Complaint CORRECTION LAB WOR K LABWORK CORRECTION LABWORK LABWORK CORRECTION LAB WORK CORRECTION LAB WORK CORRECTION LABWORK LABWORK LABWORK LABWORK LABWORK CORRECTION LABWORK CORRECTION LAB WORK LABWORK CORRECTION LAB WORK CORRECTION LAB WORK Chief Complaint CORRECTION LAB WOR K LABWORK CORRECTION LABWORK LABWORK CORRECTION LAB WORK CORRECTION LAB WORK CORRECTION LABWORK LABWORK LABWORK LABWORK LABWORK CORRECTION LABWORK CORRECTION LAB WORK LABWORK CORRECTION LAB WORK CORRECTION LAB WORK CORRECTION LABWORK Chief Complaint CORRECTION LAB WOR K CORRECTION LAB WORK CORRECTION LABWORK LABWORK LABWORK LABWORK LABWORK CORRECTION LABWORK CORRECTION LAB WORK LABWORK CORRECTION LAB WORK CORRECTION LAB WORK CORRECTION LABWORK NUSING HOME LAB WORK Chief Complaint CORRECTION LAB WOR K CORRECTION LABWORK LABWORK LABWORK LABWORK LABWORK CORRECTION LABWORK CORRECTION LAB WORK LABWORK CORRECTION LAB WORK CORRECTION LAB WORK CORRECTION LABWORK NUSING HOME LAB WORK LABWORK Chief Complaint CORRECTION LAB WOR K CORRECTION LABWORK LABWORK LABWORK LABWORK LABWORK CORRECTION LABWORK CORRECTION LAB WORK LABWORK CORRECTION LAB WORK CORRECTION LAB WORK CORRECTION LABWORK NUSING HOME LAB WORK CORRECTION LABWORK LABWORK Chief Complaint LABWORK CORRECTION LAB WORK CORRECTION LAB WORK CORRECTION LABWORK NUSING HOME LAB WORK CORRECTION LABWORK LABWORK CORRECTION LABWORK CORRECTION LAB WORK LABWORK LABWORK Chief Complaint NUSING HOME LAB WORK CORRECTION LABWORK LABWORK CORRECTION LABWORK CORRECTION LAB WORK LABWORK CORRECTION LAB WORK LABWORK LABWORK Chief Complaint NUSING HOME LAB WORK CORRECTION LABWORK LABWORK CORRECTION LABWORK CORRECTION LAB WORK LABWORK CORRECTION LAB WORK LABWORK CORRECTION LAB WORK LABWORK Chief Complaint CORRECTION LABWORK LABWORK CORRECTION LABWORK CORRECTION LAB WORK LABWORK CORRECTION LAB WORK LABWORK CORRECTION LAB WORK LABWORK LABWORK Chief Complaint CORRECTION LABWORK LABWORK CORRECTION LABWORK CORRECTION LAB WORK LABWORK CORRECTION LAB WORK LABWORK CORRECTION LAB WORK LABWORK LABWORK LABWORK Chief Complaint CORRECTION LABWORK LABWORK CORRECTION LABWORK CORRECTION LAB WORK LABWORK CORRECTION LAB WORK LABWORK CORRECTION LAB WORK LABWORK LABWORK LABWORK LABWORK Chief Complaint CORRECTION LABWORK LABWORK CORRECTION LABWORK CORRECTION LAB WORK LABWORK CORRECTION LAB WORK LABWORK CORRECTION LAB WORK LABWORK LABWORK CORRECTION LAB WORK LABWORK LABWORK LABWORK Chief Complaint LABWORK CORRECTION LABWORK CORRECTION LAB WORK LABWORK CORRECTION LAB WORK LABWORK CORRECTION LAB WORK LABWORK LABWORK CORRECTION LAB WORK LABWORK LABWORK LABWORK LABWORK LABWORK LABWORK LABWORK Chief Complaint CORRECTION LABWORK CORRECTION LAB WORK LABWORK CORRECTION LAB WORK LABWORK CORRECTION LAB WORK LABWORK LABWORK CORRECTION LAB WORK LABWORK LABWORK LABWORK LABWORK LABWORK LABWORK LABWORK LABWORK Chief Complaint LABWORK CORRECTION LAB WORK LABWORK CORRECTION LAB WORK LABWORK LABWORK CORRECTION LAB WORK LABWORK LABWORK LABWORK LABWORK LABWORK LABWORK LABWORK LABWORK LABWORK Chief Complaint CORRECTION LABWORK LABWORK LABWORK LABWORK LABWORK CORRECTION LABWORK CORRECTION LAB WORK LABWORK CORRECTION LAB WORK CORRECTION LAB WORK CORRECTION LABWORK NUSING HOME LAB WORK CORRECTION LABWORK LABWORK CORRECTION LABWORK CORRECTION LAB WORK Chief Complaint Admit Date CORRECTION LAB WORK March 13, 2024 5:00am LABWORK March 14, 2024 5 :00am CORRECTION LAB WORK March 17 5:00am CORRECTION LAB WORK March 18 5:00am CORRECTION LAB WORK March 19 4:00am CORRECTION LAB WORK March 20 5:00am CORRECTION LAB WORK March 24 5:00am CORRECTION LAB WORK March 27 5:00am LABWORK March 31, 2024 5:00am CORRECTION LAB WORK April 04 5:00am LABWORK April 07, 2024 5 :00am CORRECTION LAB WORK April 10, 2024 5:00am CORRECTION LAB WORK April 14, 2024 5:00am CORRECTION LAB WORK April 17 5:00am LABWORK April 21, 2024 5:00am CORRECTION LAB WORK April 24 4:00am LABWORK April 28, 2024 5:00am CORRECTION LAB WORK May 01 4:00am CORRECTION LAB WORK May 05 4 5:00am CORRECTION LAB WORK May 08, 2024 5:00am CORRECTION LAB WORK May 09, 2024 4:00am LABWORK May 12, 2024 5: 00am CORRECTION LAB WORK May 15, 2024 5:00am CORRECTION LAB WORK May 19, 2024 4:00am CORRECTION LAB WORK May 20, 2024 5:00am CORRECTION LAB WORK May 22, 2024 5:00am LABWORK May 26, 2024 5 :00am CORRECTION LAB WORK May 29, 2024 5:00am CORRECTION LAB WORK June 02, 2024 5:00am CORRECTION LAB WORK June 05, 2024 5:00am LABWORK June 09, 2024 5 :00am CORRECTION LAB WORK June 12, 2024 5:00am CORRECTION LAB WORK June 16 5:00am CORRECTION LAB WORK June 19 5:00am LABWORK June 23, 2024 5:00am CORRECTION LAB WORK June 26 5:00am CORRECTION LAB WORK June 30 5:00am Chief Complaint Admit Date LABWORK April 07, 2024 5 :00am CORRECTION LAB WORK April 10, 2024 5:00am CORRECTION LAB WORK April 14, 2024 5:00am CORRECTION LAB WORK April 17 5:00am LABWORK April 21, 2024 5:00am CORRECTION LAB WORK April 24 4:00am LABWORK April 28, 2024 5:00am CORRECTION LAB WORK May 01 4:00am CORRECTION LAB WORK May 05 5:00am CORRECTION LAB WORK May 08, 2024 5:00am CORRECTION LAB WORK May 09, 2024 4:00am LABWORK May 12, 2024 5: 00am CORRECTION LAB WORK May 15, 2024 5:00am CORRECTION LAB WORK May 19, 2024 4:00am CORRECTION LAB WORK May 20, 2024 5:00am CORRECTION LAB WORK May 22, 2024 5:00am LABWORK May 26, 2024 5 :00am CORRECTION LAB WORK May 29, 2024 5:00am CORRECTION LAB WORK June 02, 2024 5:00am CORRECTION LAB WORK June 05, 2024 5:00am LABWORK June 09, 2024 5 :00am CORRECTION LAB WORK June 12, 2024 5:00am CORRECTION LAB WORK June 16 5:00am CORRECTION LAB WORK June 19 5:00am LABWORK June 23, 2024 5:00am CORRECTION LAB WORK June 26 5:00am CORRECTION LAB WORK June 30 5:00am CORRECTION LAB WORK February 27th, 202 5 5:00am CORRECTION LAB WORK July 07, 2024 4: 00am LABWORK July 11, 2024 5:00 am LABWORK July 14, 2024 5:0 0am CORRECTION LAB WORK July 17, 2024 4 :00am CORRECTION LAB WORK July 24, 2024 4 :00am Chief Complaint Admit Date CORRECTION LAB WORK April 14, 2024 5:00am CORRECTION LAB WORK April 17 5:00am LABWORK April 21, 2024 5:00am CORRECTION LAB WORK April 24 4:00am LABWORK April 28, 2024 5:00am CORRECTION LAB WORK May 01 4:00am CORRECTION LAB WORK May 05 5:00am CORRECTION LAB WORK May 08, 2024 5:00am CORRECTION LAB WORK May 09, 2024 4:00am LABWORK May 12, 2024 5: 00am CORRECTION LAB WORK May 15, 2024 5:00am CORRECTION LAB WORK May 19, 2024 4:00am CORRECTION LAB WORK May 20, 2024 5:00am CORRECTION LAB WORK May 22, 2024 5:00am LABWORK May 26, 2024 5 :00am CORRECTION LAB WORK May 29, 2024 5:00am CORRECTION LAB WORK June 02, 2024 5:00am CORRECTION LAB WORK June 05, 2024 5:00am LABWORK June 09, 2024 5 :00am CORRECTION LAB WORK June 12, 2024 5:00am CORRECTION LAB WORK June 16 5:00am CORRECTION LAB WORK June 19 5:00am LABWORK June 23, 2024 5:00am CORRECTION LAB WORK June 26 5:00am CORRECTION LAB WORK June 30 5:00am CORRECTION LAB WORK July 03 5:00am CORRECTION LAB WORK July 07, 2024 4: 00am LABWORK July 11, 2024 5:00 am LABWORK July 14, 2024 5:0 0am CORRECTION LAB WORK July 17, 2024 4 :00am CORRECTION LAB WORK July 24, 2024 4 :00am LABWORK July 25, 2024 5:0 0am Chief Complaint Admit Date CORRECTION LAB WORK April 14, 2024 5:00am CORRECTION LAB WORK April 17 5:00am LABWORK April 21, 2024 5:00am CORRECTION LAB WORK April 24 4:00am LABWORK April 28, 2024 5:00am CORRECTION LAB WORK May 01 4:00am CORRECTION LAB WORK May 05 5:00am CORRECTION LAB WORK May 08, 2024 5:00am CORRECTION LAB WORK May 09, 2024 4:00am LABWORK May 12, 2024 5: 00am CORRECTION LAB WORK May 15, 2024 5:00am CORRECTION LAB WORK May 19, 2024 4:00am CORRECTION LAB WORK May 20, 2024 5:00am CORRECTION LAB WORK May 22, 2024 5:00am LABWORK May 26, 2024 5 :00am CORRECTION LAB WORK May 29, 2024 5:00am CORRECTION LAB WORK June 02, 2024 5:00am CORRECTION LAB WORK June 05, 2024 5:00am LABWORK June 09, 2024 5 :00am CORRECTION LAB WORK June 12, 2024 5:00am CORRECTION LAB WORK June 16 5:00am CORRECTION LAB WORK June 19 5:00am LABWORK June 23, 2024 5:00am CORRECTION LAB WORK June 26 5:00am CORRECTION LAB WORK June 30 5:00am CORRECTION LAB WORK July 03 5:00am CORRECTION LAB WORK July 07, 2024 4: 00am LABWORK July 11, 2024 5:00 am LABWORK July 14, 2024 5:0 0am CORRECTION LAB WORK July 17, 2024 4 :00am CORRECTION LAB WORK July 21, 2024 5 :00am CORRECTION LAB WORK July 24, 2024 4 :00am LABWORK July 25, 2024 5:0 0am CORRECTION LAB WORK July 31, 2024 4 :00am Chief Complaint Admit Date CORRECTION LAB WORK April 17 5:00am LABWORK April 21, 2024 5:00am CORRECTION LAB WORK April 24 4:00am LABWORK April 28, 2024 5:00am CORRECTION LAB WORK May 01 4:00am CORRECTION LAB WORK May 05 5:00am CORRECTION LAB WORK May 08, 2024 5:00am CORRECTION LAB WORK May 09, 2024 4:00am LABWORK May 12, 2024 5: 00am CORRECTION LAB WORK May 15, 2024 5:00am CORRECTION LAB WORK May 19, 2024 4:00am CORRECTION LAB WORK May 20, 2024 5:00am CORRECTION LAB WORK May 22, 2024 5:00am LABWORK May 26, 2024 5 :00am CORRECTION LAB WORK May 29, 2024 5:00am CORRECTION LAB WORK June 02, 2024 5:00am CORRECTION LAB WORK June 05, 2024 5:00am LABWORK June 09, 2024 5 :00am CORRECTION LAB WORK June 12, 2024 5:00am CORRECTION LAB WORK June 16 5:00am CORRECTION LAB WORK June 19 5:00am LABWORK June 23, 2024 5:00am CORRECTION LAB WORK June 26 5:00am CORRECTION LAB WORK June 30 5:00am CORRECTION LAB WORK July 03 5:00am CORRECTION LAB WORK July 07, 2024 4: 00am LABWORK July 11, 2024 5:00 am LABWORK July 14, 2024 5:0 0am CORRECTION LAB WORK July 17, 2024 4 :00am CORRECTION LAB WORK July 21, 2024 5 :00am CORRECTION LAB WORK July 24, 2024 4 :00am LABWORK July 25, 2024 5:0 0am CORRECTION LAB WORK July 28, 2024 5 :00am CORRECTION LAB WORK July 31, 2024 4 :00am Chief Complaint Admit Date CORRECTION LAB WORK April 24 4:00am LABWORK April 28, 2024 5:00am CORRECTION LAB WORK May 01 4:00am CORRECTION LAB WORK May 05 5:00am CORRECTION LAB WORK May 08, 2024 5:00am CORRECTION LAB WORK May 09, 2024 4:00am LABWORK May 12, 2024 5: 00am CORRECTION LAB WORK May 15, 2024 5:00am CORRECTION LAB WORK May 19, 2024 4:00am CORRECTION LAB WORK May 20, 2024 5:00am CORRECTION LAB WORK May 22, 2024 5:00am LABWORK May 26, 2024 5 :00am CORRECTION LAB WORK May 29, 2024 5:00am CORRECTION LAB WORK June 02, 2024 5:00am CORRECTION LAB WORK June 05, 2024 5:00am LABWORK June 09, 2024 5 :00am CORRECTION LAB WORK June 12, 2024 5:00am CORRECTION LAB WORK June 16 5:00am CORRECTION LAB WORK June 19 5:00am LABWORK June 23, 2024 5:00am CORRECTION LAB WORK June 26 5:00am CORRECTION LAB WORK June 30 5:00am CORRECTION LAB WORK July 03 5:00am CORRECTION LAB WORK July 07, 2024 4: 00am LABWORK July 11, 2024 5:00 am LABWORK July 14, 2024 5:0 0am CORRECTION LAB WORK July 17, 2024 4 :00am CORRECTION LAB WORK July 21, 2024 5 :00am CORRECTION LAB WORK July 24, 2024 4 :00am LABWORK July 25, 2024 5:0 0am CORRECTION LAB WORK July 28, 2024 5 :00am CORRECTION LAB WORK July 31, 2024 4 :00am LABWORK August 04, 2024 5:0 0am Chief Complaint Admit Date CORRECTION LAB WORK May 15, 2024 5:00am CORRECTION LAB WORK May 19, 2024 4:00am CORRECTION LAB WORK May 20, 2024 5:00am CORRECTION LAB WORK May 22, 2024 5:00am LABWORK May 26, 2024 5 :00am CORRECTION LAB WORK May 29, 2024 5:00am CORRECTION LAB WORK June 02, 2024 5:00am CORRECTION LAB WORK June 05, 2024 5:00am LABWORK June 09, 2024 5 :00am CORRECTION LAB WORK June 12, 2024 5:00am CORRECTION LAB WORK June 16 5:00am CORRECTION LAB WORK June 19 5:00am LABWORK June 23, 2024 5:00am CORRECTION LAB WORK June 26 5:00am CORRECTION LAB WORK June 30 5:00am CORRECTION LAB WORK July 03 5:00am CORRECTION LAB WORK July 07, 2024 4: 00am LABWORK July 11, 2024 5:00 am LABWORK July 14, 2024 5:0 0am CORRECTION LAB WORK July 17, 2024 4 :00am CORRECTION LAB WORK July 21, 2024 5 :00am CORRECTION LAB WORK July 24, 2024 4 :00am LABWORK July 25, 2024 5:0 0am CORRECTION LAB WORK July 28, 2024 5 :00am CORRECTION LAB WORK July 31, 2024 4 :00am LABWORK August 04, 2024 5:0 0am LABWORK August 07, 2024 5:00 am CORRECTION LAB WORK August 11, 2024 5: 00am CORRECTION LAB WORK August 14, 2024 5 :00am CORRECTION LAB WORK August 18, 2024 5 :00am Chief Complaint Admit Date CORRECTION LAB WORK May 20, 2024 5:00am CORRECTION LAB WORK May 22, 2024 5:00am LABWORK May 26, 2024 5 :00am CORRECTION LAB WORK May 29, 2024 5:00am CORRECTION LAB WORK June 02, 2024 5:00am CORRECTION LAB WORK June 05, 2024 5:00am LABWORK June 09, 2024 5 :00am CORRECTION LAB WORK June 12, 2024 5:00am CORRECTION LAB WORK June 16 5:00am CORRECTION LAB WORK June 19 5:00am LABWORK June 23, 2024 5:00am CORRECTION LAB WORK June 26 5:00am CORRECTION LAB WORK June 30 5:00am CORRECTION LAB WORK July 03 5:00am CORRECTION LAB WORK July 07, 2024 4: 00am LABWORK July 11, 2024 5:00 am LABWORK July 14, 2024 5:0 0am CORRECTION LAB WORK July 17, 2024 4 :00am CORRECTION LAB WORK July 21, 2024 5 :00am CORRECTION LAB WORK July 24, 2024 4 :00am LABWORK July 25, 2024 5:0 0am CORRECTION LAB WORK July 28, 2024 5 :00am CORRECTION LAB WORK July 31, 2024 4 :00am LABWORK August 04, 2024 5:0 0am LABWORK August 07, 2024 5:00 am CORRECTION LAB WORK August 11, 2024 5: 00am CORRECTION LAB WORK August 14, 2024 5 :00am CORRECTION LAB WORK August 18, 2024 5 :00am LABWORK August 28, 2024 5:0 0am Chief Complaint Admit Date CORRECTION LAB WORK May 22, 2024 5:00am LABWORK May 26, 2024 5 :00am CORRECTION LAB WORK May 29, 2024 5:00am CORRECTION LAB WORK June 02, 2024 5:00am CORRECTION LAB WORK June 05, 2024 5:00am LABWORK June 09, 2024 5 :00am CORRECTION LAB WORK June 12, 2024 5:00am CORRECTION LAB WORK June 16 5:00am CORRECTION LAB WORK June 19 5:00am LABWORK June 23, 2024 5:00am CORRECTION LAB WORK June 26 5:00am CORRECTION LAB WORK June 30 5:00am CORRECTION LAB WORK July 03 5:00am CORRECTION LAB WORK July 07, 2024 4: 00am LABWORK July 11, 2024 5:00 am LABWORK July 14, 2024 5:0 0am CORRECTION LAB WORK July 17, 2024 4 :00am CORRECTION LAB WORK July 21, 2024 5 :00am CORRECTION LAB WORK July 24, 2024 4 :00am LABWORK July 25, 2024 5:0 0am CORRECTION LAB WORK July 28, 2024 5 :00am CORRECTION LAB WORK July 31, 2024 4 :00am LABWORK August 04, 2024 5:0 0am LABWORK August 07, 2024 5:00 am CORRECTION LAB WORK August 11, 2024 5: 00am CORRECTION LAB WORK August 14, 2024 5 :00am CORRECTION LAB WORK August 18, 2024 5 :00am CORRECTION LAB WORK August 21, 2024 5 :00am LABWORK August 28, 2024 5:0 0am LABWORK September 01, 2024 5:0 0am Chief Complaint Admit Date CORRECTION LAB WORK June 05, 2024 5:00am LABWORK June 09, 2024 5 :00am CORRECTION LAB WORK June 12, 2024 5:00am CORRECTION LAB WORK June 16 5:00am CORRECTION LAB WORK June 19 5:00am LABWORK June 23, 2024 5:00am CORRECTION LAB WORK June 26 5:00am CORRECTION LAB WORK June 30 5:00am CORRECTION LAB WORK July 03 5:00am CORRECTION LAB WORK July 07, 2024 4: 00am LABWORK July 11, 2024 5:00 am LABWORK July 14, 2024 5:0 0am CORRECTION LAB WORK July 17, 2024 4 :00am CORRECTION LAB WORK July 21, 2024 5 :00am CORRECTION LAB WORK July 24, 2024 4 :00am LABWORK July 25, 2024 5:0 0am CORRECTION LAB WORK July 28, 2024 5 :00am CORRECTION LAB WORK July 31, 2024 4 :00am LABWORK August 04, 2024 5:0 0am LABWORK August 07, 2024 5:00 am CORRECTION LAB WORK August 11, 2024 5: 00am CORRECTION LAB WORK August 14, 2024 5 :00am CORRECTION LAB WORK August 18, 2024 5 :00am CORRECTION LAB WORK August 21, 2024 5 :00am CORRECTION LAB WORK August 25, 2024 4 :00am LABWORK August 28, 2024 5:0 0am LABWORK September 01, 2024 5:0 0am LABWORK September 04, 2024 5:00am Chief Complaint Admit Date CORRECTION LAB WORK June 05, 2024 5:00am LABWORK June 09, 2024 5 :00am CORRECTION LAB WORK June 12, 2024 5:00am CORRECTION LAB WORK June 16 5:00am CORRECTION LAB WORK June 19 5:00am LABWORK June 23, 2024 5:00am CORRECTION LAB WORK June 26 5:00am CORRECTION LAB WORK June 30 5:00am CORRECTION LAB WORK July 03 5:00am CORRECTION LAB WORK July 07, 2024 4: 00am LABWORK July 11, 2024 5:00 am LABWORK July 14, 2024 5:0 0am CORRECTION LAB WORK July 17, 2024 4 :00am CORRECTION LAB WORK July 21, 2024 5 :00am CORRECTION LAB WORK July 24, 2024 4 :00am LABWORK July 25, 2024 5:0 0am CORRECTION LAB WORK July 28, 2024 5 :00am CORRECTION LAB WORK July 31, 2024 4 :00am LABWORK August 04, 2024 5:0 0am LABWORK August 07, 2024 5:00 am CORRECTION LAB WORK August 11, 2024 5: 00am CORRECTION LAB WORK August 14, 2024 5 :00am CORRECTION LAB WORK August 18, 2024 5 :00am CORRECTION LAB WORK August 21, 2024 5 :00am CORRECTION LAB WORK August 25, 2024 4 :00am LABWORK August 28, 2024 5:0 0am LABWORK September 01, 2024 5:0 0am LABWORK September 04, 2024 5:00am LABWORK September 15, 2024 5:00a m Chief Complaint Admit Date CORRECTION LAB WORK June 19 5:00am LABWORK June 23, 2024 5:00am CORRECTION LAB WORK June 26 5:00am CORRECTION LAB WORK June 30 5:00am CORRECTION LAB WORK July 03 5:00am CORRECTION LAB WORK July 07, 2024 4: 00am LABWORK July 11, 2024 5:00 am LABWORK July 14, 2024 5:0 0am CORRECTION LAB WORK July 17, 2024 4 :00am CORRECTION LAB WORK July 21, 2024 5 :00am CORRECTION LAB WORK July 24, 2024 4 :00am LABWORK July 25, 2024 5:0 0am CORRECTION LAB WORK July 28, 2024 5 :00am CORRECTION LAB WORK July 31, 2024 4 :00am LABWORK August 04, 2024 5:0 0am LABWORK August 07, 2024 5:00 am CORRECTION LAB WORK August 11, 2024 5: 00am CORRECTION LAB WORK August 14, 2024 5 :00am CORRECTION LAB WORK August 18, 2024 5 :00am CORRECTION LAB WORK August 21, 2024 5 :00am CORRECTION LAB WORK August 25, 2024 4 :00am LABWORK August 28, 2024 5:0 0am LABWORK September 01, 2024 5:0 0am LABWORK September 04, 2024 5:00am CORRECTION LAB WORK September 08, 2024 4:00 am CORRECTION LAB WORK September 11, 2024 5:00 am LABWORK September 15, 2024 5:00a m CORRECTION LAB WORK September 25, 2024 5:0 0am CORRECTION LAB WORK September 30, 2024 4:0 0am Chief Complaint Admit Date CORRECTION LAB WORK June 12, 2024 5:00am CORRECTION LAB WORK June 16 5:00am CORRECTION LAB WORK June 19 5:00am LABWORK June 23, 2024 5:00am CORRECTION LAB WORK June 26 5:00am CORRECTION LAB WORK June 30 5:00am CORRECTION LAB WORK July 03 5:00am CORRECTION LAB WORK July 07, 2024 4: 00am LABWORK July 11, 2024 5:00 am LABWORK July 14, 2024 5:0 0am CORRECTION LAB WORK July 17, 2024 4 :00am CORRECTION LAB WORK July 21, 2024 5 :00am CORRECTION LAB WORK July 24, 2024 4 :00am LABWORK July 25, 2024 5:0 0am CORRECTION LAB WORK July 28, 2024 5 :00am CORRECTION LAB WORK July 31, 2024 4 :00am LABWORK August 04, 2024 5:0 0am LABWORK August 07, 2024 5:00 am CORRECTION LAB WORK August 11, 2024 5: 00am CORRECTION LAB WORK August 14, 2024 5 :00am CORRECTION LAB WORK August 18, 2024 5 :00am CORRECTION LAB WORK August 21, 2024 5 :00am CORRECTION LAB WORK August 25, 2024 4 :00am LABWORK August 28, 2024 5:0 0am LABWORK September 01, 2024 5:0 0am LABWORK September 04, 2024 5:00am CORRECTION LAB WORK September 08, 2024 4:00 am LABWORK September 15, 2024 5:00a m Chief Complaint Admit Date CORRECTION LAB WORK July 07, 2024 4: 00am LABWORK July 11, 2024 5:00 am LABWORK July 14, 2024 5:0 0am CORRECTION LAB WORK July 17, 2024 4 :00am CORRECTION LAB WORK July 21, 2024 5 :00am CORRECTION LAB WORK July 24, 2024 4 :00am LABWORK July 25, 2024 5:0 0am CORRECTION LAB WORK July 28, 2024 5 :00am CORRECTION LAB WORK July 31, 2024 4 :00am LABWORK August 04, 2024 5:0 0am LABWORK August 07, 2024 5:00 am CORRECTION LAB WORK August 11, 2024 5: 00am CORRECTION LAB WORK August 14, 2024 5 :00am CORRECTION LAB WORK August 18, 2024 5 :00am CORRECTION LAB WORK August 21, 2024 5 :00am CORRECTION LAB WORK August 25, 2024 4 :00am LABWORK August 28, 2024 5:0 0am LABWORK September 01, 2024 5:0 0am LABWORK September 04, 2024 5:00am CORRECTION LAB WORK September 08, 2024 4:00 am CORRECTION LAB WORK September 11, 2024 5:00 am LABWORK September 15, 2024 5:00a m CORRECTION LAB WORK September 18, 2024 5:0 0am CORRECTION LAB WORK September 22, 2024 5:0 0am CORRECTION LAB WORK September 25, 2024 5:0 0am CORRECTION LAB WORK September 30, 2024 4:0 0am CORRECTION LAB WORK October 02, 2024 5:0 0am CORRECTION LAB WORK October 09, 2024 5:0 0am Chief Complaint Admit Date CORRECTION LAB WORK October 09, 2024 5:0 0am LABWORK October 13, 2024 5:00a m CORRECTION LAB WORK October 16, 2024 5: 00am CORRECTION LAB WORK October 20, 2024 4: 00am CORRECTION LAB WORK October 23, 2024 5: 00am CORRECTION LAB WORK October 27, 2024 4: 00am CORRECTION LAB WORK October 30, 2024 6: 35am LABWORK November 03, 2024 5:00 am CORRECTION LAB WORK November 06, 2024 4:0 0am CORRECTION LAB WORK November 10, 2024 4:0 0am CORRECTION LAB WORK November 13, 2024 5: 00am CORRECTION LAB WORK November 17, 2024 5: 00am CORRECTION LAB WORK November 20, 2024 5: 00am CORRECTION LAB WORK November 24, 2024 5: 00am CORRECTION LAB WORK November 27, 2024 5: 00am LABWORK November 28, 2024 5:00 am LABWORK December 01, 2024 5:00 am CORRECTION LAB WORK December 02, 2024 4: 00am CORRECTION LAB WORK December 04, 2024 5: 00am CORRECTION LAB WORK December 08, 2024 5 :00am LABWORK December 11, 2024 6:0 0am CORRECTION LAB WORK December 15, 2024 4:00am CORRECTION LAB WORK December 18, 2024 5:00am CORRECTION LAB WORK December 22, 2024 4:00am LABWORK December 24, 2024 5: 00am CORRECTION LAB WORK December 25, 2024 5:00am CORRECTION LAB WORK December 26, 2024 5:00am LABWORK December 29, 2024 5: 00am CORRECTION LAB WORK January 01, 2025 5:00am CORRECTION LAB WORK January 06 5:00am LABWORK January 08, 2025 5:00am CORRECTION LAB WORK January 12 4:00am CORRECTION LAB WORK January 15 5:00am LABWORK January 19, 2025 5:00am CORRECTION LAB WORK January 26 4:00am Chief Complaint Admit Date LABWORK November 03, 2024 5:00 am CORRECTION LAB WORK November 06, 2024 4:0 0am CORRECTION LAB WORK November 10, 2024 4:0 0am CORRECTION LAB WORK November 13, 2024 5: 00am CORRECTION LAB WORK November 17, 2024 5: 00am CORRECTION LAB WORK November 20, 2024 5: 00am CORRECTION LAB WORK November 24, 2024 5: 00am CORRECTION LAB WORK November 27, 2024 5: 00am LABWORK November 28, 2024 5:00 am LABWORK December 01, 2024 5:00 am CORRECTION LAB WORK December 02, 2024 4: 00am CORRECTION LAB WORK December 04, 2024 5: 00am CORRECTION LAB WORK December 08, 2024 5 :00am LABWORK December 11, 2024 6:0 0am CORRECTION LAB WORK December 15, 2024 4:00am CORRECTION LAB WORK December 18, 2024 5:00am CORRECTION LAB WORK December 22, 2024 4:00am LABWORK December 24, 2024 5: 00am CORRECTION LAB WORK December 25, 2024 5:00am CORRECTION LAB WORK December 26, 2024 5:00am LABWORK December 29, 2024 5: 00am CORRECTION LAB WORK January 01, 2025 5:00am CORRECTION LAB WORK January 06 5:00am LABWORK January 08, 2025 5:00am CORRECTION LAB WORK January 12 4:00am CORRECTION LAB WORK January 15 5:00am LABWORK January 19, 2025 5:00am CORRECTION LAB WORK January 22 5:00am CORRECTION LAB WORK January 26 4:00am CORRECTION LAB WORK January 29 7:30am CORRECTION LAB WORK February 02 4:00am CORRECTION LAB WORK February 05, 2025 5:00am CORRECTION LAB WORK February 16, 2025 4:00am Reason for Referral Specialty Diagnoses / Procedures Referred By Aki kumari Referred To Contact Urology Diagnoses Other fatigue Lanette Munguia DO [address] [place] [address] [facility] [address] [place] [id number] Referral ID Status Reason Start Date Expiration Date V isits Requested Visits Authorized [id number] Open Specialty Services Required 11/01/2021 11/01/2022 1 1 Scheduling Instructions [facility] Urology - [place] [id number] Specialty Diagnoses / Procedures Referred By Aki kumari Referred To Contact IP Unit Diagnoses Heel ulceration, left, with unspecified severity (HCC) Henry Hidalgo PA [address] [place] [address] [facility] [address] [place] [address] Referral ID Status Reason Start Date Expiration Date V isits Requested Visits Authorized [id number] Open Specialty Services Required 12/22/2021 12/22/2022 1 1 Scheduling Instructions [facility] [address] [place] [address] Comments Please use the parking lot located on [address] or [address]. There are handicap parking spots located in a small lot beside the wound care entrance off of [address] [employer]. Please be advised there is a small incline from those handicap spots to our main door. Bring photo ID and insurance card to photocopy. Wear loose fitting clothing (to easily access wound). Bring list of medications (or can be sent by office). Check in at Registration for your first visit. Please call us directly with any questions [phone]. We look forward to helping you heal. Specialty Diagnoses / Procedures Referred By Contdesiree t Referred To Contact Radiology Diagnoses Left flank pain Calculus of ureter Procedures CT abdomen pelvis wo IV contrast Rebecca Buck MD [address] [place] [address] Referral ID Status Reason Start Date Expiration Date V isits Requested Visits Authorized [id number] Pending Review 08/13/2023 08/12/2024 1 1 Referral ID Status Reason Start Date Expiration Date Visits Re quested Visits Authorized [id number] Closed 08/17/2023 09/16/2023 1 1 Additional Source Comments Source Comments (unrecognize d section and content) In the event this informatio n is protected by the Federal Confidentiality of Alcohol and Drug Abuse Patient Records regulations: The Federal rules restrict any use of the information to criminally investigate or prosecute any alcohol or drug abuse patient.[facility] the event this information is protected by the Federal Confidentiality of Alcohol and Drug Abuse Patient Records regulations: The Federal rules restrict any use of the information to criminally investigate or prosecute any alcohol or drug abuse patient.[facility] (unrecognized sect ion and content) No Status Records FoundNo Status Records FoundNo Status Records FoundNo Status Records FoundNo Status Records FoundNo Status Records FoundNo Status Records FoundNo Status Records FoundNo Status Records FoundNo Status Records Found INFORMATION SOURCE (unrecogn ized section and content) DATE CREATED AUTHOR 05/20/2021 [facility] DATE CREATED AUTHOR AUTHOR'S ORGANIZ ATION 06/07/2021 [facility] DATE CREATED AUTHOR AUTHOR'S ORGANIZ ATION 08/02/2021 [facility] DATE CREATED AUTHOR AUTHOR'S ORGANIZ ATION 12/09/2021 [facility] DATE CREATED AUTHOR AUTHOR'S ORGANIZ ATION 12/29/2021 [facility] DATE CREATED AUTHOR AUTHOR'S ORGANIZ ATION 02/04/2022 [facility] DATE CREATED AUTHOR AUTHOR'S ORGANIZ ATION 03/03/2022 [facility] DATE CREATED AUTHOR AUTHOR'S ORGANIZ ATION 09/15/2023 [facility] DATE CREATED AUTHOR AUTHOR'S ORGANIZ ATION 03/18/2025 [facility] Reason for Visit (unrecogniz ed section and content) Reason Comments Missed Appointment Reason Comments Leg Swelling Blood clots Reason Comments Altered Mental Status Pt presents to ED via [facility] for complaint listed. Pt is from [facility]. Pt's LKW was 1000 hours today. Per EMS, pt had a - [place]. Pt denies CP, SOB, and N/V. Pt seems slow to respond, slightly confused at this time. Reason Comments Osteomyelitis Patient from [facility] did xrays on left lower leg and and have concerns for possible osteomyelitis A&Ox2 to self and place, stated year 2022 preside Miss martini Reason Comments Fall Patient had unwitnes sed fall at [facility] landed on butt. [...] CT abdomen pelvis wo IV contrast Rebecca uBck MD [address] [place] [address] Referral ID Status Reason Start Date Expiration Date Visits Re quested Visits Authorized [id number] Closed 08/17/2023 09/16/2023 1 1 Reason Comments [...] 2024 End: May 29, 2024 Dr. Kvng NOAVK MD Attending Provider Active Start: May 29, [...] Status Dates Carlos NOVAK Attending Provider Active Assembler Fitter Relationship Specialty Start Date End Date Mateus Burris [address] [place] [address] PCP - General Family Practice 11/12/19 Assembler Fitter Relationship Specialty [place] [address] [place] [address] PCP - General Family Medicine 09/09/20 Assembler Fitter Relationship Specialty [place] [address] [place] [address] PCP - General Family Medicine 09/09/20 Assembler Fitter Relationship Specialty Start [place] [address] [place] [address] PCP - General Family Medicine 09/09/20 Assembler Fitter Relationship Specialty Start Date End Date Carlos Cavazos MD [address] [place] [address] PCP - General Internal Medicine 02/20/22 Team [...] Monika Staley MD Primary Care Provider Active Assembler Fitter Relationship Specialty Start Date End Date Carlos Cavazos [address] [place] [phone] PCP - General 12/21/21 Rebecca Buck MD [address] [place] [address] Surgeon Urology 06/25/23 Team Status: Inactive Member [...] NOVAK Attending Provider, Referring Provi lupillo Active Assembler Fitter Relationship Specialty Start Date End Date Carlos Cavazos [address] [place] [phone] PCP - General 12/21/21 Reebcca Buck MD [address] [address] Surgeon Urology 06/25/23 Assembler Fitter Relationship Specialty Start Date End Date Carlos Cavazos [address] [place] [phone] PCP - General 12/21/21 Rebecca Buck MD [address] [address] Surgeon Urology 06/25/23 Assembler Fitter Relationship Specialty Start Date End Date Carlos Cavazos [address] [place] [phone] PCP - General 12/21/21 Rebecca Buck MD [address] [address] Surgeon Urology 06/25/23 Assembler Fitter Relationship Specialty Start Date End Date Carlos Cavazos [address] [place] [phone] PCP - General 12/21/21 Rebecca Buck MD [address] [address] Surgeon Urology 06/25/23 Assembler Fitter Relationship Specialty Start Date End Date Carlos Cavazos [address] [place] [phone] PCP - General 12/21/21 Rebecca Buck MD [address] [address] Surgeon Urology 06/25/23 Assembler Fitter Relationship Specialty Start Date End Date Carlos Cavazos [address] [place] [phone] PCP - General 12/21/21 Rebecca Buck MD [address] [address] Surgeon Urology 06/25/23 Team Status: Inactive Member Role Status Dates Dr. Monika Staley MD Primary Care Provider Active Start: March 13, 2024 End: March 13, 2024 [facility] Attending Provider Active Start: March [...] March 17, 2024 End: March 17, 2024 [facility] Attending Provider Active Start: March 17, 2024 End: March 17, 2024 Team Status: Inactive Member Role Status Dates Dr. Monika Staley MD Primary Care Provider Active Start: March 18, 2024 End: March 18, 2024 [facility] Attending Provider Active Start: March [...] March 20, 2024 End: March 20, 2024 [facility] Attending Provider Active Start: March [...] March 27, 2024 End: March 27, 2024 [facility] Attending Provider Active Start: March [...] Care Provider Active Start: July 07, 2024 [facility] Attending Provider Active Start: July [...] Active Member Role Status Dates Dr. Monika Staely MD Primary Care Provider Active Start: July [...] Inactive Member Role/Relationship Status Dates Dr. Monika Stlaey [...] physician Activ e Start: March 02, 2025 aCrlos NOVAK Attending physician Active St art: March [...] mg, Oral, ONCE Warfarin, 1 dose, On [facility] 10/29/21 at 1800, Indication of [...] BE BASED ON THE PRIMARY CLINICAL RECORDS. [facility]. provides no warranty or guarantee of the accuracy or completeness of information in this document.
[2025-03-30 08:15] LABS: Hematocrit 34.4 % (40-54); Hemoglobin 11.0 g/dL (13.0-16.5); Mean Corp Hgb Conc 32.0 g/dL (32-36); Mean Corpuscular Volume 84.1 fL (80-94); Mean Platelet Vol. 10.3 fl (6.2-12.0); Platelet Count 314 K/mm3 (150-450); RBC Distribution Width CV 15.9 % (11.6-14.6); RBC Distribution Width SD 49.1 fl (35.1-43.9); Red Blood Count 4.09 M/mm3 (4.6-6.2); White Blood Count 20.8 K/mm3 (4.4-11.0)
[2025-03-30 08:19] LABS: Prothrombin Time (Protime)PT. 27.1 SECONDS (11.7-14.9)
[2025-03-30 08:27] LABS: Anion Gap 10 (5-15); BUN 17 mg/dL (4-19); BUN/Creat Ratio 19.4 RATIO (10-20); Calcium,Total 8.2 mg/dL (7.6-11.0); Carbon Dioxide 24.0 mmol/L (21.0-32.0); Chloride 102 mmol/L (98-108); Glucose 115 mg/dL (70-99); Potassium 4.1 mmol/L (3.3-5.1)
== END ==
LOC: OLS.SANC 05:00
PROVIDERS: PCP General Practice; Visit Provider Internal Medicine
DX: D64.9 Anemia, unspecified (principal); Z79.01 Long term (current) use of anticoagulants; J96.10 Chronic respiratory failure, unspecified whether with hypoxia or hypercapnia; I11.0 Hypertensive heart disease with heart failure; I50.9 Heart failure, unspecified
CPT/HCPCS: 36415; 80048; 85027; 85610

== ENCOUNTER → 2025-04-07 04:00 | Outpatient (REF) | payer MEDICARE, MEDICAID, SELFPAY ==
--- OUTSIDE RECORDS SUMMARY | 2025-04-07 04:24 | XMS RPT_ITS | CCD ---
Author Organization [facility] Care Team Providers Care Pricing Analyst Name Role Phone Mateus Burris Primary [...] Unavailable Carlos Cavazos MD Primary Care Provider [phone] PROVIDER, UNKNOWN Primary Care Unavailable PROVIDER, UNKNOWN Referring Unavailable LANETTE MUNGUIA Attending Unavailable SHARON HSIEH Attending Jeanine vailable PROVIDER, UNKNOWN Primary Care Unavailable PROVIDER, UNKNOWN Referring Unavailable PROVIDER, UNKNOWN Referring Unavailable MATEUS BURRIS Primary Care Unavailabl DANTE Barrera Attending Unavailable Kenny, Calros Primary Care Provider Quinn VALLADARES, Rebecca L Unavailable Quinn VALLADARES, Rebecca L Unavailable REBECCA BUCK Attending Unavailable REBECCA BUCK Referring Unavailable CARLOS CAVAZOS Primary Care Unavailable REBECCA BUCK Attending Unavailable KENNY, CARLOS Primary Care Unavailable REBECCA BUCK Attending Unavailable KENNY, CARLOS Primary Care Unavailable Luís VALLADARES, Dr. Monika Horner Primary Care Provider [facility] Attending Provider [phone] Carlos Nelson Attending Provider Jonh Pascual MD, [...] Unavailable Katsaros OLS, Carlos Attending Unavailable Luís, Shieal Primary Care Unavailable Luís, Shiela Primary Care [...] OLS, Mahaveer Attending Unavail able [facility] [place] [facility] Attending Unavai lable Luís, Shiela Primary Care Unavailable Crisostomo OLS, Babbaljeet Attending Unavailable Luís, Shiela Primary Care Unavailable [facility] [place] Attending Unavai lable Luís, Shiela Primary [...] Unavailable MukkKaron Hoover Attending Unavail able Luís, [facility] Primary Care Unavailable NubiaKaron Stacy Attending Unavail able Luís, Shiela Primary Care Unavailable NubiaKaron Stacy Attending Unavail able Luís, [facility] Primary Care Unavailable MaribelCarlos Flood Attending Unavailable [place], [facility] Unavailable Allergies Allergy Classification Reported Allergen(s) Allergy Type Date of Onset Reaction(s) Facility (13 sources) [facility] (15 sources) Alcohol Propensity to adverse reactions to drug 3 Rash, Hives, Other: See Comments, Other [facility] Work Phone: (1 source) Latex Drug Allergy 0 Rash [facility] (8 sources) Cortisone Drug Allergy 2 [facility] (7 sources) Latex Allergy to substance 0 Rash [facility] Medications Current Medications Medication Drug Class(es) Dates Sig (Normalized) Sig (Original) Acetaminophen (10 sources) Start: 10-21-2021 acetaminophen (TYLENOL) tablet 650 mg Start: 09-14-2021 acetaminophen (TYLENOL) 325 MG tablet 650 mg every 6 hours as needed 0 09/14/2021 Active take [address] [facility] every eight hours acetaminophen [...] Start: 11-01-2021 take 1 capsule by [facility] once daily tamsulosin (FLOMAX) 0.4 MG [...] Comment on above: [facility] Antacid TABS (6 sources) Antacid [...] Comment on above: Take [address] [facility] three times daily. Complete [...] Active docusate sodium 50 mg / sennosides, long-term 8.6 mg oral tablet (1 source) Start: [...] Units subcutaneously with meals and at bedtime. Romanian Panax Ginseng 100 MG CAPS (8 sources) Romanian Panax Ginseng 100 MG CAPS Quantity: 0 Refills: 0 Ordered: 06-Nov-2019 DO Active Romanian Panax Ginseng 100 MG Oral Capsule (4 sources) Romanian Panax Ginseng 100 MG Oral Capsule Refills: 0 Active Romanian Panax Gin mayuri 100 MG Oral Capsule Refills: 0 DO Active Romanian Panax Ginseng 100 MG Oral Capsule (2 sources) Romanian Panax Gin mayuri 100 MG Oral Capsule [...] once daily. Pentoxifylline (1 source) Blood Viscosity Crib Pad Maker PENTOXIFYLLINE ORAL Take by mouth. 0 Active Comment on above: Take by mouth. petrolatum 0.41 mg/mg topical ointment (1 source) Start : 08-20 white petrolatum (AQUAPHOR) 41 % topical ointment Apply to affected area once daily. 0 08/20/2021 Active Comment on above: Apply to affected ar ea once daily. polyethylene glycol 3350 90713 mg powder for oral solution (1 source) [...] Onset: 10-21-2021 Chronic Other aftercare (4 sources) watermaster (current) use of anticoagulants; Translations: [long-term (current) use of anticoagulants] Onset: 10-21-2021 Episodic Other aftercare (1 source) Drug therapy finding; Translations: [watermaster (current) use of anticoagulants] Episodic Other aftercare (2 sources) Other mcfp (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; Translations: [Other mcfp (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] Onset: 06-02-2024 Episodic Other [...] Coag (PPP) [Relative time] 2.2 {INR} Normal [facility] Comment on above: Order Comment: 411-2 Performed By: #### L 300.3900 ####[facility] [address] [place], [address] PT Coag (PPP) [Time] 25.1 s High 11.7-14.9 [facility] Comment on above: Order Comment: 411-2 Performed By: #### L 300.3900 ####[facility] [address] [place], [address] Prothrombin Time w/INRon INR Coag (PPP) [Relative time] 2.3 {INR} Normal [facility] Comment on above: Order Comment: 411-2 Performed By: #### L 300.3900 ####[facility] [address] [place], [address] PT Coag (PPP) [Time] 25.5 s High 11.7-14.9 [facility] Comment on above: Order Comment: 411-2 Performed By: #### L 300.3900 ####[facility] [address] [place], [address] Prothrombin Time w/INRon INR Coag (PPP) [Relative time] 2.0 {INR} Normal [facility] Comment on above: Order Comment: 411.2 Performed By: #### L 300.3900 ####[facility] [address] [place], [address] PT Coag (PPP) [Time] 22.8 s High 11.7-14.9 [facility] Comment on above: Order Comment: 411.2 Performed By: #### L 300.3900 ####[facility] [address] [place], [address] Prothrombin Time w/INRon INR Coag (PPP) [Relative time] 1.7 {INR} Normal [facility] Comment on above: Order Comment: 411-2 Performed By: #### L 300.3900 ####[facility] [address] [place], [address] PT Coag (PPP) [Time] 20.5 s High 11.7-14.9 [facility] Comment on above: Order Comment: 411-2 Performed By: #### L 300.3900 ####[facility] [address] [place], [address] Prothrombin Time w/INRon INR Coag (PPP) [Relative time] 1.5 {INR} Normal [facility] Comment on above: Order Comment: 411.2 Performed By: #### L 300.3900 ####[facility] [address] [place], [address] PT Coag (PPP) [Time] 18.4 s High 11.7-14.9 [facility] Comment on above: Order Comment: 411.2 Performed By: #### L 300.3900 ####[facility] [address] [place], [address] Prothrombin Time w/INRon INR Coag (PPP) [Relative time] 1.8 {INR} Normal [facility] Comment on above: Order Comment: 411.2 Performed By: #### L 300.3900 ####[facility] [address] [place], [address] PT Coag (PPP) [Time] 21.2 s High 11.7-14.9 [facility] Comment on above: Order Comment: 411.2 Performed By: #### L 300.3900 ####[facility] [address] [place], [place], [phone] International normalized rat io (INR) calculationOrdered By: Carlos Cavazos on 03-02-2025 INR Coag (Bld) [Relative time] 2.2 {INR} [facility] Prothrombin Time w/INRon INR Coag (PPP) [Relative time] 2.2 {INR} Normal [facility] Comment on above: Order Comment: 411-2 Performed By: #### L 300.3900 ####[facility] [address] [place], [place], [phone] Prothrombin timeOrdered By: Carlos Cavazos on 03-02-2025 PT Coag (PPP) [Time] 25.3 s High 11.7-14.9 [facility] Comment on above: Order Comment: 411-2 Performed By: #### L 300.3900 ####[facility] [address] [place], [place], [phone] International normalized rat io (INR) calculationOrdered By: Karon Corrales on 02-26-2025 INR Coag (Bld) [Relative time] 2.2 {INR} [facility] Prothrombin Time w/INRon INR Coag (PPP) [Relative time] 2.2 {INR} Normal [facility] Comment on above: Order Comment: 411.2 Performed By: #### L 300.3900 ####[facility] [address] [place], [address] PT Coag (PPP) [Time] 24.5 s High 11.7-14.9 [facility] Comment on above: Order Comment: 411.2 Performed By: #### L 300.3900 ####[facility] [address] [place], [place], [phone] Prothrombin timeOrdered By: Karon Corrales on 02-26-2025 PT Coag (PPP) [Time] 24.5 s High 11.7-14.9 [facility] International normalized rat io (INR) calculationOrdered By: Karon Corrales on 02-23-2025 INR Coag (Bld) [Relative time] 2.0 {INR} [facility] Prothrombin Time w/INRon INR Coag (PPP) [Relative time] 2.0 {INR} Normal [facility] Comment on above: Order Comment: 411.2 Performed By: #### L 300.3900 ####[facility] [address] [place], [place], [phone] PT Coag (PPP) [Time] 23.5 s High 11.7-14.9 [facility] Comment on above: Order Comment: 411.2 Performed By: #### L 300.3900 ####[facility] [address] [place], [place], [phone] Prothrombin timeOrdered By: Karon Corrales on 02-23-2025 PT Coag (PPP) [Time] 23.5 s High 11.7-14.9 [facility] International normalized rat io (INR) calculationOrdered By: Karon Corrales on 02-19-2025 INR Coag (Bld) [Relative time] 1.9 {INR} [facility] Prothrombin Time w/INRon INR Coag (PPP) [Relative time] 1.9 {INR} Normal [facility] Comment on above: Order Comment: 411.2 Performed By: #### L 300.3900 ####[facility] [address] [place], [address]) PT Coag (PPP) [Time] 21.8 s High 11.7-14.9 [facility] Comment on above: Order Comment: 411.2 Performed By: #### L 300.3900 ####[facility] [address] [place], [place], [address] Prothrombin timeOrdered By: Karon Corrales on 02-19-2025 PT Coag (PPP) [Time] 21.8 s High 11.7-14.9 [facility] International normalized rat io (INR) calculationOrdered By: Karon Corrales on 02-16-2025 INR Coag (Bld) [Relative time] 1.5 {INR} [facility] Prothrombin Time w/INRon INR Coag (PPP) [Relative time] 1.5 {INR} Normal [facility] Comment on above: Order Comment: 411.2 Performed By: #### L 300.3900 ####[facility] [address] [place], [place], [address] PT Coag (PPP) [Time] 18.6 s High 11.7-14.9 [facility] Comment on above: Order Comment: 411.2 Performed By: #### L 300.3900 ####[facility] [address] [place], [place], [phone] Prothrombin timeOrdered By: Karon Corrales on 02-16-2025 PT Coag (PPP) [Time] 18.6 s High 11.7-14.9 [facility] International normalized rat io (INR) calculationOrdered By: Karon Corrales on 02-12-2025 INR Coag (Bld) [Relative time] 2.5 {INR} [facility] Prothrombin Time w/INRon INR Coag (PPP) [Relative time] 2.5 {INR} Normal [facility] Comment on above: Order Comment: 411.2 Performed By: #### L 300.3900 ####[facility] [address] [place], [address] PT Coag (PPP) [Time] 27.5 s High 11.7-14.9 [facility] Comment on above: Order Comment: 411.2 Performed By: #### L 300.3900 ####[facility] [address] [place], [address] Prothrombin timeOrdered By: Karon Corrales on 02-12-2025 PT Coag (PPP) [Time] 27.5 s High 11.7-14.9 [facility] International normalized rat io (INR) calculationOrdered By: Carlos Cavazos on 02-09-2025 INR Coag (Bld) [Relative time] 2.5 {INR} [facility] Prothrombin Time w/INRon INR Coag (PPP) [Relative time] 2.5 {INR} Normal [facility] Comment on above: Order Comment: 411-2 Performed By: #### L 300.3900 ####[facility] [address] [place], [address] INR Normal [facility] Comment on above: Order Comment: 411.2 Result Comment: MISS ING TUBE Performed By: #### L 300.3900 ####[facility] [address] [place], [address] PROTIME Normal 11.7-14.9 [facility] Comment on above: Order Comment: 411.2 Result Comment: MISS ING TUBE Performed By: #### L 300.3900 ####[facility] [address] [place], [address] Prothrombin timeOrdered By: Carlos Cavazos on 02-09-2025 PT Coag (PPP) [Time] 27.2 s High 11.7-14.9 [facility] Comment on above: Order Comment: 411-2 Performed By: #### L 300.3900 ####[facility] [address] [place], [address] International normalized rat io (INR) calculationOrdered By: Karon Corrales on 02-05-2025 INR Coag (Bld) [Relative time] 2.5 {INR} [facility] Prothrombin Time w/INRon INR Coag (PPP) [Relative time] 2.5 {INR} Normal [facility] Comment on above: Order Comment: 411.2 Performed By: #### L 300.3900 ####[facility] [address] [place], [address] PT Coag (PPP) [Time] 27.6 s High 11.7-14.9 [facility] Comment on above: Order Comment: 411.2 Performed By: #### L 300.3900 ####[facility] [address] [place], [place], [phone] Prothrombin timeOrdered By: Karon Corrales on 02-05-2025 PT Coag (PPP) [Time] 27.6 s High 11.7-14.9 [facility] International normalized rat io (INR) calculationOrdered By: Karon Corrales on 02-02-2025 INR Coag (Bld) [Relative time] 2.4 {INR} [facility] Prothrombin Time w/INRon INR Coag (PPP) [Relative time] 2.4 {INR} Normal [facility] Comment on above: Order Comment: 411.2 Performed By: #### L 300.3900 ####[facility] [address] [place], [address] PT Coag (PPP) [Time] 26.8 s High 11.7-14.9 [facility] Comment on above: Order Comment: 411.2 Performed By: #### L 300.3900 ####[facility] [address] [place], [place], [phone] Prothrombin timeOrdered By: Karon Corrales on 02-02-2025 PT Coag (PPP) [Time] 26.8 s High 11.7-14.9 [facility] International normalized rat io (INR) calculationOrdered By: Karon Corrales on 01-29-2025 INR Coag (Bld) [Relative time] 2.7 {INR} [facility] Prothrombin Time w/INRon INR Coag (PPP) [Relative time] 2.7 {INR} Normal [facility] Comment on above: Performed By: #### L 300.3900 ####[facility] [address] [place], [place], [phone]) PT Coag (PPP) [Time] 29.1 s High 11.7-14.9 [facility] Comment on above: Performed By: #### L 300.3900 ####[facility] [address] [place], [place], [phone]) Prothrombin timeOrdered By: Karon Corrales on 01-29-2025 PT Coag (PPP) [Time] 29.1 s High 11.7-14.9 [facility] International normalized rat io (INR) calculationOrdered By: Karon Corrales on 01-26-2025 INR Coag (Bld) [Relative time] 2.0 {INR} [facility] Prothrombin Time w/INRon INR Coag (PPP) [Relative time] 2.0 {INR} Normal [facility] Comment on above: Order Comment: 411.2 Performed By: #### L 300.3900 ####[facility] [address] [place], [place], [phone]) PT Coag (PPP) [Time] 23.1 s High 11.7-14.9 [facility] Comment on above: Order Comment: 411.2 Performed By: #### L 300.3900 ####[facility] [address] [place], [place], [phone]) Prothrombin timeOrdered By: Karon Corrales on 01-26-2025 PT Coag (PPP) [Time] 23.1 s High 11.7-14.9 [facility] International normalized rat io (INR) calculationOrdered By: Karon Corrales on 01-22-2025 INR Coag (Bld) [Relative time] 2.4 {INR} [facility] Prothrombin Time w/INRon INR Coag (PPP) [Relative time] 2.4 {INR} Normal [facility] Comment on above: Order Comment: 411.2 Performed By: #### L 300.3900 ####[facility] [address] [place], [address] PT Coag (PPP) [Time] 26.6 s High 11.7-14.9 [facility] Comment on above: Order Comment: 411.2 Performed By: #### L 300.3900 ####[facility] [address] [place], [address] Prothrombin timeOrdered By: Karon Corrales on 01-22-2025 PT Coag (PPP) [Time] 26.6 s High 11.7-14.9 [facility] International normalized rat io (INR) calculationOrdered By: Carlos Cavazos on 01-19-2025 INR Coag (Bld) [Relative time] 2.7 {INR} [facility] Prothrombin Time w/INRon INR Coag (PPP) [Relative time] 2.7 {INR} Normal [facility] Comment on above: Order Comment: 411-2 Performed By: #### L 300.3900 ####[facility] [address] [place], [address] PT Coag (PPP) [Time] 29.7 s High 11.7-14.9 [facility] Comment on above: Order Comment: 411-2 Performed By: #### L 300.3900 ####[facility] [address] [place], [address] Prothrombin timeOrdered By: Carlos Cavazos on 01-19-2025 PT Coag (PPP) [Time] 29.7 s High 11.7-14.9 [facility] International normalized rat io (INR) calculationOrdered By: Karon Corrales on 01-15-2025 INR Coag (Bld) [Relative time] 2.4 {INR} [facility] Prothrombin Time w/INRon INR Coag (PPP) [Relative time] 2.4 {INR} Normal [facility] Comment on above: Order Comment: 411.1 Performed By: #### L 300.3900 ####[facility] [address] [place], [place], [address] PT Coag (PPP) [Time] 26.6 s High 11.7-14.9 [facility] Comment on above: Order Comment: 411.1 Performed By: #### L 300.3900 ####[facility] [address] [place], [place], [address] Prothrombin timeOrdered By: Karon Corrales on 01-15-2025 PT Coag (PPP) [Time] 26.6 s High 11.7-14.9 [facility] KEPPRA (LEVETIRACETAM)on KEPPRA 30.1 ug/mL Normal 10.0-40.0 [facility] Comment on above: Order Comment: 411.1 Result Comment: Perf ormed at: [facility] [address] [id number] Director: Alpesh Vázquez MD, Phone: [phone] Performed By: #### L 0510.0000, H267.7957 ####[facility] [address] [place], [place], [address] International normalized rat io (INR) calculationOrdered By: Karon Corrales on 01-12-2025 INR Coag (Bld) [Relative time] 2.3 {INR} [facility] LevetiracetamOrdered By: Carla Corrales on 01-12-2025 levETIRAcetam [Mass/Vol] 30.1 ug/mL 10.0-40.0 [facility] Comment on above: Performed at: - [facility] [address] [id number] Director: Alpesh Vázquez MD, Phone: [phone] Prothrombin Time w/INRon INR Coag (PPP) [Relative time] 2.3 {INR} Normal [facility] Comment on above: Order Comment: 411.1 Performed By: #### L 3310.0000, L300.3900 ####[facility] [address] [place], [address] PT Coag (PPP) [Time] 26.1 s High 11.7-14.9 [facility] Comment on above: Order Comment: 411.1 Performed By: #### L 3310.0000, L300.3900 ####[facility] [address] [place], [address] Prothrombin timeOrdered By: Karon Corrales on 01-12-2025 PT Coag (PPP) [Time] 26.1 s High 11.7-14.9 [facility] KEPPRA (LEVETIRACETAM)on KEPPRA 27.6 ug/mL Normal 10.0-40.0 [facility] Comment on above: Order Comment: 411.1 Result Comment: Perf ormed at: - [facility] [address] [id number] Director: Alpesh Vázquez MD, Phone: [phone] Performed By: #### L 3310.0000, L300.3900 ####[facility] [address] [place], [address] International normalized rat io (INR) calculationOrdered By: Karon Corrales on 01-08-2025 INR Coag (Bld) [Relative time] 2.2 {INR} [facility] Prothrombin Time w/INRon INR Coag (PPP) [Relative time] 2.2 {INR} Normal [facility] Comment on above: Order Comment: 411.1 Performed By: #### L 300.3900 ####[facility] [address] [place], [address] PT Coag (PPP) [Time] 24.5 s High 11.7-14.9 [facility] Comment on above: Order Comment: 411.1 Performed By: #### L 300.3900 ####[facility] [address] [place], [address] Prothrombin timeOrdered By: Karon Corrales on 01-08-2025 PT Coag (PPP) [Time] 24.5 s High 11.7-14.9 [facility] International normalized rat io (INR) calculationOrdered By: Karon Corrales on 01-06-2025 INR Coag (Bld) [Relative time] 3.2 {INR} [facility] LevetiracetamOrdered By: Carla Corrales on 01-06-2025 levETIRAcetam [Mass/Vol] 27.6 ug/mL 10.0-40.0 [facility] Comment on above: Performed at: [address] [id number] Director: Alpesh Vázquez MD, Phone: [phone] Prothrombin Time w/INRon INR Coag (PPP) [Relative time] 3.2 {INR} Normal [facility] Comment on above: Order Comment: 411.1 Performed By: #### L 3310.0000, L300.3900 ####[facility] [address] [place], [address] PT Coag (PPP) [Time] 33.1 s High 11.7-14.9 [facility] Comment on above: Order Comment: 411.1 Performed By: #### L 3310.0000, L300.3900 ####[facility] [address] [place], [place], [address] Prothrombin timeOrdered By: Karon Corrales on 01-06-2025 PT Coag (PPP) [Time] 33.1 s High 11.7-14.9 [facility] International normalized rat io (INR) calculationOrdered By: Karon Corrales on 01-01-2025 INR Coag (Bld) [Relative time] 2.7 {INR} [facility] Prothrombin Time w/INRon INR Coag (PPP) [Relative time] 2.7 {INR} Normal [facility] Comment on above: Order Comment: 411.1 Performed By: #### L [id number] ####[facility] [address] [place], [place], [phone] Prothrombin timeOrdered By: Karon Corrales on 01-01-2025 PT Coag (PPP) [Time] 29.1 s High 11.7-14.9 [facility] Comment on above: Order Comment: 411.1 Performed By: #### L [id number] ####[facility] [address] [place], [place], [id number] KEPPRA (LEVETIRACETAM)on KEPPRA 31.8 ug/mL Normal 10.0-40.0 [facility] Comment on above: Order Comment: 411-1 Result Comment: [facility]f [facility]med at: - [facility] [place], [place] [id number] Director: Alpesh Vázquez MD, Phone: [phone] Performed By: #### L 3310.0000, L345.9569 ####[facility] [address] [place], [place], [id number] International normalized rat io (INR) calculationOrdered By: Carlos Cavazos on 12-29-2024 INR Coag (Bld) [Relative time] 3.3 {INR} [facility] KEPPRA (LEVETIRACETAM)on KEPPRA 33.3 ug/mL Normal 10.0-40.0 [facility] Comment on above: Order Comment: 411.1 Result Comment: Perf ormed at: [facility] [address] [id number] Director: Alpesh Vázquez MD, Phone: [phone] Performed By: #### L 3310.0000 ####[facility] [address] [facility] [address] LevetiracetamOrdered By: Ted Cavazos on 12-29-2024 levETIRAcetam [Mass/Vol] 31.8 ug/mL 10.0-40.0 [facility] Comment on above: Performed at: [facility] [address] [id number] Director: Alpesh Vázquez MD, Phone: [phone] Prothrombin Time w/INRon INR Coag (PPP) [Relative time] 3.3 {INR} Normal [facility] Comment on above: Order Comment: 411-1 Performed By: #### L 3310.0000, L300.3900 ####[facility] [address] [place], [address] Prothrombin timeOrdered By: Carlos Cavazos on 12-29-2024 PT Coag (PPP) [Time] 34.0 s High 11.7-14.9 [facility] Comment on above: Order Comment: 411-1 Performed By: #### L 3310.0000, L300.3900 ####[facility] [address] [place], [place], [phone] LevetiracetamOrdered By: Carla Corrales on 12-26-2024 levETIRAcetam [Mass/Vol] 33.3 ug/mL 10.0-40.0 [facility] Comment on above: Performed at: [facility] [address], [place] [id number] Director: Alpesh Vázquez MD, Phone: [phone] International normalized rat io (INR) calculationOrdered By: Karon Corrales on 12-25-2024 INR Coag (Bld) [Relative time] 2.8 {INR} [facility] Prothrombin Time w/INRon INR Coag (PPP) [Relative time] 2.8 {INR} Normal [facility] Comment on above: Order Comment: 411.1 Performed By: #### L 300.3900 ####[facility] [address] [place], [address] Prothrombin timeOrdered By: Karon Corrales on 12-25-2024 PT Coag (PPP) [Time] 30.0 s High 11.7-14.9 [facility] Comment on above: Order Comment: 411.1 Performed By: #### L 300.3900 ####[facility] [address] [place], [address] Anion gap in Serum or Plasma Ordered By: Carlos Cavazos on 12-24-2024 Anion gap [Moles/Vol] 13 mmol/L 09-18 [facility] BUN/creatinine ratioOrdered By: Carlos Cavazos on 12-24-2024 Urea nitrogen/Creatinine [Mass ratio] 19.2 mg/mg 02-23 [facility] Basic Metabolic Profile (BMP )on 12-24-2024 BUN/CRE 19.2 RATIO Normal 02-23 [facility] Comment on above: Order Comment: 411-1 Performed By: #### L 500.2500, L100.0500 ####[facility] [address] [place], [address] Calcium [Mass/Vol] 8.8 mg/dL Normal 7.6-11.0 [facility] Comment on above: Order Comment: 411-1 Performed By: #### L 500.2500, L100.0500 ####[facility] [address] [place], [address] Chloride [Moles/Vol] 103 mmol/L Normal 98-108 [facility] Comment on above: Order Comment: 411-1 Performed By: #### L 500.2500, L100.0500 ####[facility] [address] [place], [address] CO2 [Moles/Vol] 23.7 mmol/L Normal 21.0-32.0 [facility] Comment on above: Order Comment: 411-1 Performed By: #### L 500.2500, L100.0500 ####[facility] [address] [place], [address] Creatinine [Mass/Vol] 0.82 mg/dL Normal 0.70-1.20 [facility] Comment on above: Order Comment: 411-1 Performed By: #### L 500.2500, L100.0500 ####[facility] [address] [place], [address] GAP 13 Normal 5-15 [facility] Comment on above: Order Comment: 411-1 Performed By: #### L 500.2500, L100.0500 ####[facility] [address] [place], [address] GFR/1.73 sq M.predicted among non-blacks MDRD (S/P/Bld) [Vol rate/Area] 93 mL/min/{1.73_m2} Normal >60 [facility] Comment on above: Order Comment: 411-1 Result Comment: mL/m in/1.73m2 CKD-EPI Creatinine Equation (2020) Performed By: #### L 500.2500, L100.0500 ####[facility] [address] [place], [address] Glucose [Mass/Vol] 88 mg/dL Normal 70-99 [facility] Comment on above: Order Comment: 411-1 Performed By: #### L 500.2500, L100.0500 ####[facility] [address] [place], [address] Potassium [Moles/Vol] 4.2 mmol/L Normal 3.3-5.1 [facility] Comment on above: Order Comment: 411-1 Performed By: #### L 500.2500, L100.0500 ####[facility] [address] [place], [address] Sodium [Moles/Vol] 139 mmol/L Normal 133-145 [facility] Comment on above: Order Comment: 411-1 Performed By: #### L 500.2500, L100.0500 ####[facility] [address] [place], [address] Urea nitrogen [Mass/Vol] 16 mg/dL Normal 4-19 [facility] Comment on above: Order Comment: 411-1 Performed By: #### L 500.2500, L100.0500 ####[facility] [address] [place], [address] CBC-Complete Blood Cnt No Di ffon 12-24-2024 Erythrocyte distribution width (RBC) [Ratio] 15.4 % High 11.6-14.6 [facility] Comment on above: Order Comment: 411-1 Performed By: #### L 500.2500, L100.0500 ####[facility] [address] [place], [address] Hematocrit (Bld) [Volume fraction] 39.8 % Low 40-54 [facility] Comment on above: Order Comment: 411-1 Performed By: #### L 500.2500, L100.0500 ####[facility] [address] [place], [address] Hemoglobin (Bld) [Mass/Vol] 12.4 g/dL Low 13.0-16.5 [facility] Comment on above: Order Comment: 411-1 Performed By: #### L 500.2500, L100.0500 ####[facility] [address] [place], [address] MCH (RBC) [Entitic mass] 26.6 pg Low 27.0-32.0 [facility] Comment on above: Order Comment: 411-1 Performed By: #### L 500.2500, L100.0500 ####[facility] [address] [place], [address] MCHC (RBC) [Mass/Vol] 31.2 g/dL Low 32-36 [facility] Comment on above: Order Comment: 411-1 Performed By: #### L 500.2500, L100.0500 ####[facility] [address] [place], [address] MCV (RBC) [Entitic vol] 85.4 fL Normal 80-94 [facility] Comment on above: Order Comment: 411-1 Performed By: #### L 500.2500, L100.0500 ####[facility] [address] [place], [address] Platelet mean volume (Bld) [Entitic vol] 10.4 fL Normal 6.2-12.0 [facility] Comment on above: Order Comment: 411-1 Performed By: #### L 500.2500, L100.0500 ####[facility] [address] [place], [address] Platelets (Bld) [#/Vol] 290 10*3/uL Normal 150-450 [facility] Comment on above: Order Comment: 411-1 Performed By: #### L 500.2500, L100.0500 ####[facility] [address] [place], [address] RBC (Bld) [#/Vol] 4.66 10*6/uL Normal 4.6-6.2 [facility] Comment on above: Order Comment: 411-1 Performed By: #### L 500.2500, L100.0500 ####[facility] [address] [place], [address] RDW SD 48.1 fl High 35.1-43.9 [facility] Comment on above: Order Comment: 411-1 Performed By: #### L 500.2500, L100.0500 ####[facility] [address] [place], [address] WBC (Bld) [#/Vol] 16.6 10*3/uL High 4.4-11.0 [facility] Comment on above: Order Comment: 411-1 Performed By: #### L 500.2500, L100.0500 ####[facility] [address] [place], [address] Carbon dioxide, total [Moles /volume] in Central venous bloodOrdered By: Carlos Cavazos on 12-24-2024 CO2 [Moles/Vol] 23.7 mmol/L 21.0-32.0 [facility] Chloride assayOrdered By: Sharif Crouch on 12-24-2024 Chloride [Moles/Vol] 103 mmol/L 98-108 [facility] Erythrocyte distribution wid th ratioOrdered By: Carlos Cavazos on 12-24-2024 Erythrocyte distribution width (RBC) [Ratio] 15.4 % High 11.6-14.6 [facility] Erythrocyte distribution wid th standard deviationOrdered By: Carlos Cavazos on 12-24-2024 Erythrocyte distribution width (RBC) [Ratio] 48.1 fl High 35.1-43.9 [facility] Glomerular filtration rate ( GFR) estimation/1.73 sq m using serum, plasma, or whole bOrdered By: Carlos Cavazos on 12-24-2024 GFR/1.73 sq M.predicted among non-blacks MDRD (S/P/Bld) [Vol rate/Area] 93 mL/min/{1.73_m2} >60 [facility] Comment on above: mL/min/1.73m2 CKD-EP I Creatinine Equation (2020) Hematocrit Auto (Bld) [Volum e fraction]Ordered By: Carlos Cavazos on 12-24-2024 Hematocrit (Bld) [Volume fraction] 39.8 % Low 40-54 [facility] Hemoglobin measurementOrdere d By: Carlos Cavazos on 12-24-2024 Hemoglobin (Bld) [Mass/Vol] 12.4 g/dL Low 13.0-16.5 [facility] MCV (mean corpuscular volume ) determinationOrdered By: Carlos Cavazos on 12-24-2024 MCV (RBC) [Entitic vol] 85.4 fL 80-94 [facility] Mean corpuscular hemoglobin (MCH) determinationOrdered By: Carlos Cavazos on 12-24-2024 MCH (RBC) [Entitic mass] 26.6 pg Low 27.0-32.0 [facility] Mean corpuscular hemoglobin concentration (MCHC) determinationOrdered By: Carlos Cavazos on 12-24-2024 MCHC (RBC) [Mass/Vol] 31.2 g/dL Low 32-36 [facility] Mean platelet volume determi nationOrdered By: Carlos Cavazos on 12-24-2024 Platelet mean volume (Bld) [Entitic vol] 10.4 fL 6.2-12.0 [facility] Platelet countOrdered By: Sharif Crouch on 12-24-2024 Platelets (Bld) [#/Vol] 290 10*3/uL 150-450 [facility] Potassium measurement (mass/ volume)Ordered By: Carlos Cavazos on 12-24-2024 Potassium (Unsp spec) [Mass/Vol] 4.2 mmol/L 3.3-5.1 [facility] RBC Auto (Bld) [#/Vol]Ordere d By: Carlos Cavazos on 12-24-2024 RBC (Bld) [#/Vol] 4.66 10*6/uL 4.6-6.2 [facility] Serum creatinine measurement (mass/volume)Ordered By: Carlos Cavazos on 12-24-2024 Creatinine [Mass/Vol] 0.82 mg/dL 0.70-1.20 [facility] Serum glucose measurement (m ass/volume)Ordered By: Carlos Cavazos on 12-24-2024 Glucose [Mass/Vol] 88 mg/dL 70-99 [facility] Serum or plasma calcium oral urement (mass/volume)Ordered By: Carlos Cavazos on 12-24-2024 Calcium [Mass/Vol] 8.8 mg/dL 7.6-11.0 [facility] Serum or plasma urea nitroge n measurement (mass/volume)Ordered By: Carlos Cavazos on 12-24-2024 Urea nitrogen [Mass/Vol] 16 mg/dL 4-19 [facility] Sodium levelOrdered By: Moe Cavazos on 12-24-2024 Sodium [Moles/Vol] 139 mmol/L 133-145 [facility] White blood cell (WBC) count Ordered By: Carlos Cavazos on 12-24-2024 WBC (Bld) [#/Vol] 16.6 10*3/uL High 4.4-11.0 [facility] International normalized rat io (INR) calculationOrdered By: Karon Corrales on 12-22-2024 INR Coag (Bld) [Relative time] 2.6 {INR} [facility] Prothrombin Time w/INRon INR Coag (PPP) [Relative time] 2.6 {INR} Normal [facility] Comment on above: Order Comment: 411.1 Performed By: #### L 300.0581 ####[facility] [address] [facility] [place], [place], [phone] PT Coag (PPP) [Time] 28.8 s High 11.7-14.9 [facility] Comment on above: Order Comment: 411.1 Performed By: #### L 300.3900 ####[facility] [address] [facility]. [place], [place], [address] Prothrombin timeOrdered By: Karon Corrales on 12-22-2024 PT Coag (PPP) [Time] 28.8 s High 11.7-14.9 [facility] International normalized rat io (INR) calculationOrdered By: Karon Corrales on 12-18-2024 INR Coag (Bld) [Relative time] 2.4 {INR} [place] [facility] Prothrombin Time w/INRon INR Coag (PPP) [Relative time] 2.4 {INR} Normal [facility] Comment on above: Order Comment: 411.1 Performed By: #### L 300.3900 ####[facility] [address] [place], [place], [address] PT Coag (PPP) [Time] 26.7 s High 11.7-14.9 [facility] Comment on above: Order Comment: 411.1 Performed By: #### L 300.3900 ####[facility] [address] [place], [place], [phone] Prothrombin timeOrdered By: Karon Corrales on 12-18-2024 PT Coag (PPP) [Time] 26.7 s High 11.7-14.9 [facility] International normalized rat io (INR) calculationOrdered By: Karon Corrales on 12-15-2024 INR Coag (Bld) [Relative time] 2.3 {INR} [facility] Prothrombin Time w/INRon INR Coag (PPP) [Relative time] 2.3 {INR} Normal [facility] Comment on above: Order Comment: 411.1 Performed By: #### L 300.3900 ####[facility] [address] [place], [place], [address] Prothrombin timeOrdered By: Karon Corrales on 12-15-2024 PT Coag (PPP) [Time] 25.7 s High 11.7-14.9 [facility] Comment on above: Order Comment: 411.1 Performed By: #### L 300.3900 ####[facility] [address] [place], [place], [phone] International normalized rat io (INR) calculationOrdered By: Carlos Cavazos on 12-11-2024 INR Coag (Bld) [Relative time] 2.2 {INR} [facility] Prothrombin Time w/INRon INR Coag (PPP) [Relative time] 2.2 {INR} Normal [facility] Comment on above: Order Comment: 411-1 Performed By: #### L 300.3900 ####[facility] [address] [place], [address] Prothrombin timeOrdered By: Carlos Cavazos on 12-11-2024 PT Coag (PPP) [Time] 24.7 s High 11.7-14.9 [facility] Comment on above: Order Comment: 411-1 Performed By: #### L 300.3900 ####[facility] [address] [place], [place], [address] International normalized rat io (INR) calculationOrdered By: Karon Corrales on 12-08-2024 INR Coag (Bld) [Relative time] 2.2 {INR} [facility] Prothrombin Time w/INRon INR Coag (PPP) [Relative time] 2.2 {INR} Normal [facility] Comment on above: Order Comment: 411.1 Performed By: #### L 300.3900 ####[facility] [address] [place], [address] PT Coag (PPP) [Time] 25.0 s High 11.7-14.9 [facility] Comment on above: Order Comment: 411.1 Performed By: #### L 300.3900 ####[facility] [address] [place], [place], [phone] Prothrombin timeOrdered By: Karon Corrales on 12-08-2024 PT Coag (PPP) [Time] 25.0 s High 11.7-14.9 [facility] International normalized rat io (INR) calculationOrdered By: Karon Corrales on 12-04-2024 INR Coag (Bld) [Relative time] 2.3 {INR} [facility] Prothrombin Time w/INRon INR Coag (PPP) [Relative time] 2.3 {INR} Normal [facility] Comment on above: Order Comment: 411.1 Performed By: #### L 300.3900 ####[facility] [address] [place], [address] PT Coag (PPP) [Time] 25.9 s High 11.7-14.9 [facility] Comment on above: Order Comment: 411.1 Performed By: #### L 300.3900 ####[facility] [address] [place], [address] Prothrombin timeOrdered By: Karon Corrales on 12-04-2024 PT Coag (PPP) [Time] 25.9 s High 11.7-14.9 [facility] International normalized rat io (INR) calculationOrdered By: Karon Corrales on 12-02-2024 INR Coag (Bld) [Relative time] 2.5 {INR} [facility] Prothrombin Time w/INRon INR Coag (PPP) [Relative time] 2.5 {INR} Normal [facility] Comment on above: Order Comment: 411.1 Performed By: #### L 300.3900 ####[facility] [address] [place], [address] PT Coag (PPP) [Time] 27.3 s High 11.7-14.9 [facility] Comment on above: Order Comment: 411.1 Performed By: #### L 300.3900 ####[facility] [address] [place], [address] Prothrombin timeOrdered By: Karon Corrales on 12-02-2024 PT Coag (PPP) [Time] 27.3 s High 11.7-14.9 [facility] International normalized rat io (INR) calculationOrdered By: Carlos Cavazos on 12-01-2024 INR Coag (Bld) [Relative time] 2.3 {INR} [facility] Prothrombin Time w/INRon INR Coag (PPP) [Relative time] 2.3 {INR} Normal [facility] Comment on above: Order Comment: 411-1 Performed By: #### L 300.3900 ####[facility] [address] [place], [address] PT Coag (PPP) [Time] 26.0 s High 11.7-14.9 [facility] Comment on above: Order Comment: 411-1 Performed By: #### L 300.3900 ####[facility] [address] [place], [address] Prothrombin timeOrdered By: Carlos Cavazos on 12-01-2024 PT Coag (PPP) [Time] 26.0 s High 11.7-14.9 [facility] International normalized rat io (INR) calculationOrdered By: Carlos Cavazos on 11-28-2024 INR Coag (Bld) [Relative time] 3.1 {INR} [facility] Prothrombin Time w/INRon INR Coag (PPP) [Relative time] 3.1 {INR} Normal [facility] Comment on above: Order Comment: 411-1 Performed By: #### L 300.3900 ####[facility] [address] [place], [address] PT Coag (PPP) [Time] 32.8 s High 11.7-14.9 [facility] Comment on above: Order Comment: 411-1 Performed By: #### L 300.3900 ####[facility] [address] [place], [address] Prothrombin timeOrdered By: Carlos Cavazos on 11-28-2024 PT Coag (PPP) [Time] 32.8 s High 11.7-14.9 [facility] International normalized rat io (INR) calculationOrdered By: Karon Corrales on 11-27-2024 INR Coag (Bld) [Relative time] 3.3 {INR} [facility] Prothrombin Time w/INRon INR Coag (PPP) [Relative time] 3.3 {INR} Normal [facility] Comment on above: Order Comment: 411.1 Performed By: #### L 300.3900 ####[facility] [address] [place], [place], [phone] PT Coag (PPP) [Time] 34.3 s High 11.7-14.9 [facility] Comment on above: Order Comment: 411.1 Performed By: #### L 300.3900 ####[facility] [address] [place], [place], [phone]) Prothrombin timeOrdered By: Karon Corrales on 11-27-2024 PT Coag (PPP) [Time] 34.3 s High 11.7-14.9 [facility] International normalized rat io (INR) calculationOrdered By: Karon Corrales on 11-24-2024 INR Coag (Bld) [Relative time] 2.8 {INR} [facility] Prothrombin Time w/INRon INR Coag (PPP) [Relative time] 2.8 {INR} Normal [facility] Comment on above: Order Comment: 411.2 Performed By: #### L 300.3900 ####[facility] [address] [place], [place], [phone] PT Coag (PPP) [Time] 30.0 s High 11.7-14.9 [facility] Comment on above: Order Comment: 411.2 Performed By: #### L 300.3900 ####[facility] [address] [place], [place], [phone]([phone] Prothrombin timeOrdered By: Karon Corrales on 11-24-2024 PT Coag (PPP) [Time] 30.0 s High 11.7-14.9 [facility] International normalized rat io (INR) calculationOrdered By: Karon Corrales on 11-20-2024 INR Coag (Bld) [Relative time] 3.0 {INR} [facility] Prothrombin Time w/INRon INR Coag (PPP) [Relative time] 3.0 {INR} Normal [facility] Comment on above: Order Comment: 411.2 Performed By: #### L 300.3900 ####[facility] [address] [place], [place], [phone] PT Coag (PPP) [Time] 32.0 s High 11.7-14.9 [facility] Comment on above: Order Comment: 411.2 Performed By: #### L 300.3900 ####[facility] [address] [place], [place], [phone](577) Prothrombin timeOrdered By: Karon Corrales on 11-20-2024 PT Coag (PPP) [Time] 32.0 s High 11.7-14.9 [facility] International normalized rat io (INR) calculationOrdered By: Karon Corrales on 11-17-2024 INR Coag (Bld) [Relative time] 2.9 {INR} [facility] Prothrombin Time w/INRon INR Coag (PPP) [Relative time] 2.9 {INR} Normal [facility] Comment on above: Order Comment: 411.2 Performed By: #### L 300.3900 ####[facility] [address] [place], [place], [phone] PT Coag (PPP) [Time] 30.7 s High 11.7-14.9 [facility] Comment on above: Order Comment: 411.2 Performed By: #### L 300.3900 ####[facility] [address] [place], [place], [phone]([phone] Prothrombin timeOrdered By: Karon Corrales on 11-17-2024 PT Coag (PPP) [Time] 30.7 s High 11.7-14.9 [facility] International normalized rat io (INR) calculationOrdered By: Karon Corrales on 11-13-2024 INR Coag (Bld) [Relative time] 2.2 {INR} [facility] Prothrombin Time w/INRon INR Coag (PPP) [Relative time] 2.2 {INR} Normal [facility] Comment on above: Order Comment: 411.2 Performed By: #### L 300.3900 ####[facility] [address] [place], [place], [phone](230 PT Coag (PPP) [Time] 24.7 s High 11.7-14.9 [facility] Comment on above: Order Comment: 411.2 Performed By: #### L 300.3900 ####[facility] [address] [place], [place], [phone]) Prothrombin timeOrdered By: Karon Corrales on 11-13-2024 PT Coag (PPP) [Time] 24.7 s High 11.7-14.9 [facility] International normalized rat io (INR) calculationOrdered By: Karon Corrales on 11-10-2024 INR Coag (Bld) [Relative time] 2.6 {INR} [facility] Prothrombin Time w/INRon INR Coag (PPP) [Relative time] 2.6 {INR} Normal [facility] Comment on above: Order Comment: 411.2 Performed By: #### L 300.3900 ####[facility] [address] [place], [address] PT Coag (PPP) [Time] 28.7 s High 11.7-14.9 [facility] Comment on above: Order Comment: 411.2 Performed By: #### L 300.3900 ####[facility] [address] [place], [place], [phone] Prothrombin timeOrdered By: Karon Corrales on 11-10-2024 PT Coag (PPP) [Time] 28.7 s High 11.7-14.9 [facility] International normalized rat io (INR) calculationOrdered By: Karon Corrales on 11-06-2024 INR Coag (Bld) [Relative time] 3.1 {INR} [facility] Prothrombin Time w/INRon INR Coag (PPP) [Relative time] 3.1 {INR} Normal [facility] Comment on above: Order Comment: 411.2 Performed By: #### L 300.3900 ####[facility] [address] [place], [address] Prothrombin timeOrdered By: Karon Corrales on 11-06-2024 PT Coag (PPP) [Time] 33.0 s High 11.7-14.9 [facility] Comment on above: Order Comment: 411.2 Performed By: #### L 300.3900 ####[facility] [address] [place], [address] International normalized rat io (INR) calculationOrdered By: Carlos Cavazos on 11-03-2024 INR Coag (Bld) [Relative time] 3.0 {INR} [facility] Prothrombin Time w/INRon INR Coag (PPP) [Relative time] 3.0 {INR} Normal [facility] Comment on above: Order Comment: 411-2 Performed By: #### L 300.3900 ####[facility] [address] [place], [address] PT Coag (PPP) [Time] 31.4 s High 11.7-14.9 [facility] Comment on above: Order Comment: 411-2 Performed By: #### L 300.3900 ####[facility] [address] [place], [address] Prothrombin timeOrdered By: Carlos Cavazos on 11-03-2024 PT Coag (PPP) [Time] 31.4 s High 11.7-14.9 [facility] International normalized rat io (INR) calculationOrdered By: Karon Corrales on 10-30-2024 INR Coag (Bld) [Relative time] 2.4 {INR} [facility] Prothrombin Time w/INRon INR Coag (PPP) [Relative time] 2.4 {INR} Normal [facility] Comment on above: Performed By: #### L 300.3900 ####[facility] [address] [place], [place], [phone] PT Coag (PPP) [Time] 26.3 s High 11.7-14.9 [facility] Comment on above: Performed By: #### L 300.3900 ####[facility] [address] [place], [place], [phone] Prothrombin timeOrdered By: Karon Corrales on 10-30-2024 PT Coag (PPP) [Time] 26.3 s High 11.7-14.9 [facility] International normalized rat io (INR) calculationOrdered By: Karon Corrales on 10-27-2024 INR Coag (Bld) [Relative time] 2.2 {INR} [facility] Prothrombin Time w/INRon INR Coag (PPP) [Relative time] 2.2 {INR} Normal [facility] Comment on above: Order Comment: 411.2 Performed By: #### L 300.3900 ####[facility] [address] [place], [place], [phone] Prothrombin timeOrdered By: Karon Corrales on 10-27-2024 PT Coag (PPP) [Time] 24.5 s High 11.7-14.9 [facility] Comment on above: Order Comment: 411.2 Performed By: #### L 300.3900 ####[facility] [address] [place], [address] International normalized rat io (INR) calculationOrdered By: Karon Corrales on 10-23-2024 INR Coag (Bld) [Relative time] 2.5 {INR} [facility] Prothrombin Time w/INRon INR Coag (PPP) [Relative time] 2.5 {INR} Normal [facility] Comment on above: Order Comment: 411.2 Performed By: #### L 300.3900 ####[facility] [address] [place], [address] PT Coag (PPP) [Time] 27.9 s High 11.7-14.9 [facility] Comment on above: Order Comment: 411.2 Performed By: #### L 300.3900 ####[facility] [address] [place], [address] Prothrombin timeOrdered By: Karon Corrales on 10-23-2024 PT Coag (PPP) [Time] 27.9 s High 11.7-14.9 [facility] International normalized rat io (INR) calculationOrdered By: Karon Corrales on 10-20-2024 INR Coag (Bld) [Relative time] 3.1 {INR} [facility] Prothrombin Time w/INRon INR Coag (PPP) [Relative time] 3.1 {INR} Normal [facility] Comment on above: Order Comment: 411.2 Performed By: #### L 300.3900 ####[facility] [address] [place], [address] PT Coag (PPP) [Time] 32.8 s High 11.7-14.9 [facility] Comment on above: Order Comment: 411.2 Performed By: #### L 300.3900 ####[facility] [address], [address] Prothrombin timeOrdered By: Karon Corrales on 10-20-2024 PT Coag (PPP) [Time] 32.8 s High 11.7-14.9 [facility] International normalized rat io (INR) calculationOrdered By: Karon Corrales on 10-16-2024 INR Coag (Bld) [Relative time] 2.8 {INR} [facility] Prothrombin Time w/INRon INR Coag (PPP) [Relative time] 2.8 {INR} Normal [facility] Comment on above: Order Comment: 411.2 Performed By: #### L 300.3900 ####[facility] [address] [place], [place], [phone] PT Coag (PPP) [Time] 30.4 s High 11.7-14.9 [facility] Comment on above: Order Comment: 411.2 Performed By: #### L 300.3900 ####[facility] [address] [place], [address] Prothrombin timeOrdered By: Karon Corrales on 10-16-2024 PT Coag (PPP) [Time] 30.4 s High 11.7-14.9 [facility] International normalized rat io (INR) calculationOrdered By: Carlos Cavazos on 10-13-2024 INR Coag (Bld) [Relative time] 1.9 {INR} [facility] Prothrombin Time w/INRon INR Coag (PPP) [Relative time] 1.9 {INR} Normal [facility] Comment on above: Order Comment: 411-2 Performed By: #### L 300.3900 ####[facility] [address] [place], [place], [phone] PT Coag (PPP) [Time] 22.4 s High 11.7-14.9 [facility] Comment on above: Order Comment: 411-2 Performed By: #### L 300.3900 ####[facility] [address] [place], [place], [phone] Prothrombin timeOrdered By: Carlos Cavazos on 10-13-2024 PT Coag (PPP) [Time] 22.4 s High 11.7-14.9 [facility] International normalized rat io (INR) calculationOrdered By: Karon Corrales on 10-09-2024 INR Coag (Bld) [Relative time] 3.0 {INR} [facility] Prothrombin Time w/INRon INR Coag (PPP) [Relative time] 3.0 {INR} Normal [facility] Comment on above: Order Comment: 411.2 Performed By: #### L 300.3900 ####[facility] [address] [place], [address] Prothrombin timeOrdered By: Karon Corrales on 10-09-2024 PT Coag (PPP) [Time] 31.8 s High 11.7-14.9 [facility] Comment on above: Order Comment: 411.2 Performed By: #### L 300.3900 ####[facility] [address] [place], [address] International normalized rat io (INR) calculationOrdered By: Carlos Cavazos on 10-06-2024 INR Coag (Bld) [Relative time] 2.7 {INR} [facility] Prothrombin Time w/INRon INR Coag (PPP) [Relative time] 2.7 {INR} Normal [facility] Comment on above: Order Comment: 411-2 Performed By: #### L 300.3900 ####[facility] [address] [place], [address] PT Coag (PPP) [Time] 29.6 s High 11.7-14.9 [facility] Comment on above: Order Comment: 411-2 Performed By: #### L 300.3900 ####[facility] [address] [place], [address] Prothrombin timeOrdered By: Carlos Cavazos on 10-06-2024 PT Coag (PPP) [Time] 29.6 s High 11.7-14.9 [facility] International normalized rat io (INR) calculationOrdered By: Karon Corrales on 10-02-2024 INR Coag (Bld) [Relative time] 2.3 {INR} [facility] Prothrombin Time w/INRon INR Coag (PPP) [Relative time] 2.3 {INR} Normal [facility] Comment on above: Order Comment: 411.2 Performed By: #### L 300.3900 ####[facility] [address] [place], [address] PT Coag (PPP) [Time] 26.0 s High 11.7-14.9 [facility] Comment on above: Order Comment: 411.2 Performed By: #### L 300.3900 ####[facility] [address] [place], [address] Prothrombin timeOrdered By: Karon Corrales on 10-02-2024 PT Coag (PPP) [Time] 26.0 s High 11.7-14.9 [facility] International normalized rat io (INR) calculationOrdered By: Karon Corrales on 09-30-2024 INR Coag (Bld) [Relative time] 3.1 {INR} [facility] Prothrombin Time w/INRon INR Coag (PPP) [Relative time] 3.1 {INR} Normal [facility] Comment on above: Order Comment: 411.2 Performed By: #### L 300.3900 ####[facility] [address] [place], [address] PT Coag (PPP) [Time] 32.6 s High 11.7-14.9 [facility] Comment on above: Order Comment: 411.2 Performed By: #### L 300.3900 ####[facility] [address] [place], [place], [phone] Prothrombin timeOrdered By: Karon Corrales on 09-30-2024 PT Coag (PPP) [Time] 32.6 s High 11.7-14.9 [facility] International normalized rat io (INR) calculationOrdered By: Karon Corrales on 09-25-2024 INR Coag (Bld) [Relative time] 2.4 {INR} [facility] Prothrombin Time w/INRon INR Coag (PPP) [Relative time] 2.4 {INR} Normal [facility] Comment on above: Order Comment: 411.2 Performed By: #### L 300.3900 ####[facility] [address] [place], [address] Prothrombin timeOrdered By: Karon Corrales on 09-25-2024 PT Coag (PPP) [Time] 26.7 s High 11.7-14.9 [facility] Comment on above: Order Comment: 411.2 Performed By: #### L 300.3900 ####[facility] [address] [place], [place], [address] International normalized rat io (INR) calculationOrdered By: Karon Corrales on 09-22-2024 INR Coag (Bld) [Relative time] 2.5 {INR} [facility] Prothrombin Time w/INRon INR Coag (PPP) [Relative time] 2.5 {INR} Normal [facility] Comment on above: Order Comment: 411.2 Performed By: #### L 300.3900 ####[facility] [address] [place], [place], [phone] Prothrombin timeOrdered By: Karon Corrales on 09-22-2024 PT Coag (PPP) [Time] 27.4 s High 11.7-14.9 [facility] Comment on above: Order Comment: 411.2 Performed By: #### L 300.3900 ####[facility] [address] [place], [address] International normalized rat io (INR) calculationOrdered By: Karon Corrales on 09-18-2024 INR Coag (Bld) [Relative time] 2.2 {INR} [facility] Prothrombin Time w/INRon INR Coag (PPP) [Relative time] 2.2 {INR} Normal [facility] Comment on above: Order Comment: 411.2 Performed By: #### L 300.3900 ####[facility] [address] [place], [place], [phone] PT Coag (PPP) [Time] 25.1 s High 11.7-14.9 [facility] Comment on above: Order Comment: 411.2 Performed By: #### L 300.3900 ####[facility] [address] [place], [place], [phone] Prothrombin timeOrdered By: Karon Corrales on 09-18-2024 PT Coag (PPP) [Time] 25.1 s High 11.7-14.9 [facility] International normalized rat io (INR) calculationOrdered By: Carlos Cavazos on 09-15-2024 INR Coag (Bld) [Relative time] 2.4 {INR} [facility] Prothrombin Time w/INRon INR Coag (PPP) [Relative time] 2.4 {INR} Normal [facility] Comment on above: Order Comment: 411-2 Performed By: #### L 300.3900 ####[facility] [address] [place], [place], [phone] Prothrombin timeOrdered By: Carlos Cavazos on 09-15-2024 PT Coag (PPP) [Time] 26.3 s High 11.7-14.9 [facility] Comment on above: Order Comment: 411-2 Performed By: #### L 300.3900 ####[facility] [address] [place], [place], [phone] International normalized rat io (INR) calculationOrdered By: Karon Corrales on 09-11-2024 INR Coag (Bld) [Relative time] 2.0 {INR} [facility] Prothrombin Time w/INRon INR Coag (PPP) [Relative time] 2.0 {INR} Normal [facility] Comment on above: Order Comment: 411.2 Performed By: #### L 300.3900 ####[facility] [address] [place], [place], [phone] PT Coag (PPP) [Time] 22.9 s High 11.7-14.9 [facility] Comment on above: Order Comment: 411.2 Performed By: #### L 300.3900 ####[facility] [address] [place], [place], [phone]) Prothrombin timeOrdered By: Karon Corrales on 09-11-2024 PT Coag (PPP) [Time] 22.9 s High 11.7-14.9 [facility] International normalized rat io (INR) calculationOrdered By: Karon Corrales on 09-08-2024 INR Coag (Bld) [Relative time] 2.0 {INR} [facility] Prothrombin Time w/INRon INR Coag (PPP) [Relative time] 2.0 {INR} Normal [facility] Comment on above: Order Comment: 411.2 Performed By: #### L 300.3900 ####[facility] [address] [place], [place], [phone] PT Coag (PPP) [Time] 22.8 s High 11.7-14.9 [facility] Comment on above: Order Comment: 411.2 Performed By: #### L 300.3900 ####[facility] [address] [place], [place], [phone] Prothrombin timeOrdered By: Karon Corrales on 09-08-2024 PT Coag (PPP) [Time] 22.8 s High 11.7-14.9 [facility] International normalized rat io (INR) calculationOrdered By: Carlos Cavazos on 09-04-2024 INR Coag (Bld) [Relative time] 1.7 {INR} [facility] Prothrombin Time w/INRon INR Coag (PPP) [Relative time] 1.7 {INR} Normal [facility] Comment on above: Order Comment: 411-2 Performed By: #### L 300.3900 ####[facility] [address] [place], [address] PT Coag (PPP) [Time] 20.8 s High 11.7-14.9 [facility] Comment on above: Order Comment: 411-2 Performed By: #### L 300.3900 ####[facility] [address] [place], [address] Prothrombin timeOrdered By: Carlos Cavazos on 09-04-2024 PT Coag (PPP) [Time] 20.8 s High 11.7-14.9 [facility] International normalized rat io (INR) calculationOrdered By: Carlos Cavazos on 09-01-2024 INR Coag (Bld) [Relative time] 2.9 {INR} [facility] Prothrombin Time w/INRon INR Coag (PPP) [Relative time] 2.9 {INR} Normal [facility] Comment on above: Order Comment: 411-2 Performed By: #### L 300.3900 ####[facility] [address] [place], [address] PT Coag (PPP) [Time] 30.7 s High 11.7-14.9 [facility] Comment on above: Order Comment: 411-2 Performed By: #### L 300.3900 ####[facility] [address], [address] Prothrombin timeOrdered By: Carlos Cavazos on 09-01-2024 PT Coag (PPP) [Time] 30.7 s High 11.7-14.[address] [facility] International normalized rat io (INR) calculationOrdered By: Carlos Cavazos on 08-28-2024 INR Coag (Bld) [Relative time] 2.4 {INR} [facility] Prothrombin Time w/INRon INR Coag (PPP) [Relative time] 2.4 {INR} Normal [facility] Comment on above: Order Comment: 411-2 Performed By: #### L 300.3900 ####[facility] [address] [place], [address] Prothrombin timeOrdered By: Carlos Cavazos on 08-28-2024 PT Coag (PPP) [Time] 26.7 s High 11.7-14.9 [facility] Comment on above: Order Comment: 411-2 Performed By: #### L 300.3900 ####[facility] [address] [place], [address] International normalized rat io (INR) calculationOrdered By: Karon Corrales on 08-25-2024 INR Coag (Bld) [Relative time] 1.8 {INR} [facility] Prothrombin Time w/INRon INR Coag (PPP) [Relative time] 1.8 {INR} Normal [facility] Comment on above: Order Comment: 411.2 Performed By: #### L 300.3900 ####[facility] [address] [place], [place], [phone] PT Coag (PPP) [Time] 21.6 s High 11.7-14.9 [facility] Comment on above: Order Comment: 411.2 Performed By: #### L 300.3900 ####[facility] [address] [place], [address] Prothrombin timeOrdered By: Karon Corrales on 08-25-2024 PT Coag (PPP) [Time] 21.6 s High 11.7-14.9 [facility] International normalized rat io (INR) calculationOrdered By: Karon Corrales on 08-21-2024 INR Coag (Bld) [Relative time] 1.7 {INR} [facility] PSA, total screeningOrdered By: Karon Corrales on 08-21-2024 Prostate Specific Antigen Screen 0.52 ng/mL 0.02-4.00 [facility] Comment on above: This test was perfor med using the [employer] tPSA method. Measured values of a patient sample can vary depending on the testing procedure used. PSA values determined on patient samples by different testing procedures cannot be used interchangeably. If there is a change in PSA assays while monitoring therapy, sequential testing should be performed to confirm baseline values. PSA,Total - Annual Screenon 08-21-2024 PSA,TOT SCREEN 0.52 ng/mL Normal 0.02-4.00 [facility] Comment on above: Order Comment: 411.2 Result [...] values. Performed By: #### L 501.9910, L300.3900 ####[facility] [address] [place], [address] Prothrombin Time w/INRon INR Coag (PPP) [Relative time] 1.7 {INR} Normal [facility] Comment on above: Order Comment: 411.2 Performed By: #### L 501.9910, L300.3900 ####[facility] [address] [place], [address] Prothrombin timeOrdered By: Karon Corrales on 08-21-2024 PT Coag (PPP) [Time] 20.1 s High 11.7-14.9 [facility] Comment on above: Order Comment: 411.2 Performed By: #### L 501.9910, L300.3900 ####[facility] [address] [place], [place], [phone] International normalized rat io (INR) calculationOrdered By: Karon Corrales on 08-18-2024 INR Coag (Bld) [Relative time] 3.0 {INR} [facility] Prothrombin Time w/INRon INR Coag (PPP) [Relative time] 3.0 {INR} Normal [facility] Comment on above: Order Comment: 411.2 Performed By: #### L 300.3900 ####[facility] [address] [place], [place], [phone](217) PT Coag (PPP) [Time] 31.4 s High 11.7-14.9 [facility] Comment on above: Order Comment: 411.2 Performed By: #### L 300.3900 ####[facility] [address] [place], [place], [phone](292) Prothrombin timeOrdered By: Karon Corrales on 08-18-2024 PT Coag (PPP) [Time] 31.4 s High 11.7-14.9 [facility] International normalized rat io (INR) calculationOrdered By: Karon Corrales on 08-14-2024 INR Coag (Bld) [Relative time] 2.4 {INR} [facility] Prothrombin Time w/INRon INR Coag (PPP) [Relative time] 2.4 {INR} Normal [facility] Comment on above: Order Comment: 411.2 Performed By: #### L 300.3900 ####[facility] [address] [place], [address] PT Coag (PPP) [Time] 26.6 s High 11.7-14.9 [facility] Comment on above: Order Comment: 411.2 Performed By: #### L 300.3900 ####[facility] [address] [place], [place], [phone](227) Prothrombin timeOrdered By: Karon Corrales on 08-14-2024 PT Coag (PPP) [Time] 26.6 s High 11.7-14.9 [facility] International normalized rat io (INR) calculationOrdered By: Karon Corrales on 08-11-2024 INR Coag (Bld) [Relative time] 3.1 {INR} [facility] Prothrombin Time w/INRon INR Coag (PPP) [Relative time] 3.1 {INR} Normal [facility] Comment on above: Order Comment: 411.2 Performed By: #### L 300.3900 ####[facility] [address] [place], [place], [phone](117) PT Coag (PPP) [Time] 32.4 s High 11.7-14.9 [facility] Comment on above: Order Comment: 411.2 Performed By: #### L 300.3900 ####[facility] [address] [place], [place], [phone] Prothrombin timeOrdered By: Karon Corrales on 08-11-2024 PT Coag (PPP) [Time] 32.4 s High 11.7-14.9 [facility] International normalized rat io (INR) calculationOrdered By: Carlos Cavazos on 08-07-2024 INR Coag (Bld) [Relative time] 2.8 {INR} [facility] Prothrombin Time w/INRon INR Coag (PPP) [Relative time] 2.8 {INR} Normal [facility] Comment on above: Order Comment: 411-2 Performed By: #### L 300.3900 ####[facility] [address] [place], [place], [phone] PT Coag (PPP) [Time] 30.3 s High 11.7-14.9 [facility] Comment on above: Order Comment: 411-2 Performed By: #### L 300.3900 ####[facility] [address] [place], [address] Prothrombin timeOrdered By: Carlos Cavazos on 08-07-2024 PT Coag (PPP) [Time] 30.3 s High 11.7-14.9 [facility] International normalized rat io (INR) calculationOrdered By: Carlos Cavazos on 08-04-2024 INR Coag (Bld) [Relative time] 1.9 {INR} [facility] Prothrombin Time w/INRon INR Coag (PPP) [Relative time] 1.9 {INR} Normal [facility] Comment on above: Order Comment: 411-2 Performed By: #### L 300.3900 ####[facility] [address] [place], [place], [phone] PT Coag (PPP) [Time] 22.1 s High 11.7-14.9 [facility] Comment on above: Order Comment: 411-2 Performed By: #### L 300.3900 ####[facility] [address] [place], [place], [phone] Prothrombin timeOrdered By: Carlos Cavazos on 08-04-2024 PT Coag (PPP) [Time] 22.1 s High 11.7-14.9 [facility] International normalized rat io (INR) calculationOrdered By: Karon Corrales on 07-31-2024 INR Coag (Bld) [Relative time] 3.2 {INR} [facility] Prothrombin Time w/INRon INR Coag (PPP) [Relative time] 3.2 {INR} Normal [facility] Comment on above: Order Comment: 411.2 Performed By: #### L 300.3900 ####[facility] [address] [place], [place], [phone] PT Coag (PPP) [Time] 33.5 s High 11.7-14.9 [facility] Comment on above: Order Comment: 411.2 Performed By: #### L 300.3900 ####[facility] [address] [place], [place], [phone] Prothrombin timeOrdered By: Karon Corrales on 07-31-2024 PT Coag (PPP) [Time] 33.5 s High 11.7-14.9 [facility] International normalized rat io (INR) calculationOrdered By: Karon Corrales on 07-28-2024 INR Coag (Bld) [Relative time] 2.7 {INR} [facility] Prothrombin Time w/INRon INR Coag (PPP) [Relative time] 2.7 {INR} Normal [facility] Comment on above: Order Comment: 411.2 Performed By: #### L 300.3900 ####[facility] [address] [place], [place], [phone] PT Coag (PPP) [Time] 29.6 s High 11.7-14.9 [facility] Comment on above: Order Comment: 411.2 Performed By: #### L 300.3900 ####[facility] [address] [place], [place], [phone] Prothrombin timeOrdered By: Karon Corrales on 07-28-2024 PT Coag (PPP) [Time] 29.6 s High 11.7-14.9 [facility] International normalized rat io (INR) calculationOrdered By: Carlos Cavazos on 07-25-2024 INR Coag (Bld) [Relative time] 3.0 {INR} [facility] Prothrombin Time w/INRon INR Coag (PPP) [Relative time] 3.0 {INR} Normal [facility] Comment on above: Order Comment: 411-2 Performed By: #### L 300.3900 ####[facility] [address] [place], [address] Prothrombin timeOrdered By: Carlos Cavazos on 07-25-2024 PT Coag (PPP) [Time] 32.1 s High 11.7-14.9 [facility] Comment on above: Order Comment: 411-2 Performed By: #### L 300.3900 ####[facility] [address] [place], [place], [phone] International normalized rat io (INR) calculationOrdered By: Karon Corrales on 07-24-2024 INR Coag (Bld) [Relative time] 3.4 {INR} [facility] Prothrombin Time w/INRon INR Coag (PPP) [Relative time] 3.4 {INR} Normal [facility] Comment on above: Order Comment: 411.2 Performed By: #### L 300.3900 ####[facility] [address] [place], [place], [phone] Prothrombin timeOrdered By: Karon Corrales on 07-24-2024 PT Coag (PPP) [Time] 35.4 s High 11.7-14.9 [facility] Comment on above: Order Comment: 411.2 Performed By: #### L 300.3900 ####[facility] [address] [place], [place], [phone] International normalized rat io (INR) calculationOrdered By: Karon Corrales on 07-21-2024 INR Coag (Bld) [Relative time] 1.6 {INR} [facility] Prothrombin Time w/INRon INR Coag (PPP) [Relative time] 1.6 {INR} Normal [facility] Comment on above: Order Comment: 411.2 Performed By: #### L 300.3900 ####[facility] [address] [place], [place], [phone] PT Coag (PPP) [Time] 19.6 s High 11.7-14.9 [facility] Comment on above: Order Comment: 411.2 Performed By: #### L 300.3900 ####[facility] [address] [place], [place], [phone] Prothrombin timeOrdered By: Karon Corrales on 07-21-2024 PT Coag (PPP) [Time] 19.6 s High 11.7-14.9 [facility] International normalized rat io (INR) calculationOrdered By: Karon Corrales on 07-17-2024 INR Coag (Bld) [Relative time] 2.9 {INR} [facility] Prothrombin Time w/INRon INR Coag (PPP) [Relative time] 2.9 {INR} Normal [facility] Comment on above: Order Comment: 411.2 Performed By: #### L 300.3900 ####[facility] [address] [place], [place], [phone] PT Coag (PPP) [Time] 31.1 s High 11.7-14.9 [facility] Comment on above: Order Comment: 411.2 Performed By: #### L 300.3900 ####[facility] [address] [place], [address] Prothrombin timeOrdered By: Karon Corrales on 07-17-2024 PT Coag (PPP) [Time] 31.1 s High 11.7-14.9 [facility] International normalized rat io (INR) calculationOrdered By: Carlos Cavazos on 07-14-2024 INR Coag (Bld) [Relative time] 2.5 {INR} [facility] Prothrombin Time w/INRon INR Coag (PPP) [Relative time] 2.5 {INR} Normal [facility] Comment on above: Order Comment: 411-2 Performed By: #### L 300.3900 ####[facility] [address] [place], [address] PT Coag (PPP) [Time] 27.5 s High 11.7-14.9 [facility] Comment on above: Order Comment: 411-2 Performed By: #### L 300.3900 ####[facility] [address] [place], [address] Prothrombin timeOrdered By: Carlos Cavazos on 07-14-2024 PT Coag (PPP) [Time] 27.5 s High 11.7-14.9 [facility] International normalized rat io (INR) calculationOrdered By: Carlos Cavazos on 07-11-2024 INR Coag (Bld) [Relative time] 2.5 {INR} [facility] Prothrombin Time w/INRon INR Coag (PPP) [Relative time] 2.5 {INR} Normal [facility] Comment on above: Performed By: #### L 300.3900 ####[facility] [address] [place], [address] PT Coag (PPP) [Time] 27.7 s High 11.7-14.9 [facility] Comment on above: Performed By: #### L 300.3900 ####[facility] [address] [place], [place], [phone] Prothrombin timeOrdered By: Carlos Cavazos on 07-11-2024 PT Coag (PPP) [Time] 27.7 s High 11.7-14.9 [facility] Prothrombin Time w/INRon INR Normal [facility] Comment on above: Order Comment: 411.2 Result Comment: QNS TUBE NOT FILLED Performed By: #### L 300.3900 ####[facility] [address] [place], [place], [phone] PROTIME Normal 11.7-14.9 [facility] Comment on above: Order Comment: 411.2 Result Comment: QNS TUBE NOT FILLED Performed By: #### L 300.3900 ####[facility] [address] [place], [place], [phone] International normalized rat io (INR) calculationOrdered By: Kvng Crissotomo on 07-07-2024 INR Coag (Bld) [Relative time] 2.5 {INR} [facility] Prothrombin Time w/INRon INR Coag (PPP) [Relative time] 2.5 {INR} Normal [facility] Comment on above: Order Comment: 411.2 Performed By: #### L 300.3900 ####[facility] [address] [place], [address] PT Coag (PPP) [Time] 27.2 s High 11.7-14.9 [facility] Comment on above: Order Comment: 411.2 Performed By: #### L 300.3900 ####[facility] [address] [place], [address] Prothrombin timeOrdered By: Kvng Crisostomo on 07-07-2024 PT Coag (PPP) [Time] 27.2 s High 11.7-14.9 [facility] International normalized rat io (INR) calculationOrdered By: Kvng Crisostomo on 07-03-2024 INR Coag (Bld) [Relative time] 2.5 {INR} [facility] Prothrombin Time w/INRon INR Coag (PPP) [Relative time] 2.5 {INR} Normal [facility] Comment on above: Order Comment: 411.2 Performed By: #### L 300.3900 ####[facility] [address] [place], [address] PT Coag (PPP) [Time] 27.2 s High 11.7-14.9 [facility] Comment on above: Order Comment: 411.2 Performed By: #### L 300.3900 ####[facility] [address] [place], [address] Prothrombin timeOrdered By: Kvng Crisostomo on 07-03-2024 PT Coag (PPP) [Time] 27.2 s High 11.7-14.9 [facility] International normalized rat io (INR) calculationOrdered By: Kvng Crisostomo on 06-30-2024 INR Coag (Bld) [Relative time] 2.4 {INR} [facility] Prothrombin Time w/INRon INR Coag (PPP) [Relative time] 2.4 {INR} Normal [facility] Comment on above: Order Comment: 411.2 Performed By: #### L 300.3900 ####[facility] [address] [place], [address] PT Coag (PPP) [Time] 26.8 s High 11.7-14.9 [facility] Comment on above: Order Comment: 411.2 Performed By: #### L 300.3900 ####[facility] [address] [place], [address] Prothrombin timeOrdered By: Kvng Crisostomo on 06-30-2024 PT Coag (PPP) [Time] 26.8 s High 11.7-14.9 [facility] International normalized rat io (INR) calculationOrdered By: Kvng Crisostomo on 06-26-2024 INR Coag (Bld) [Relative time] 2.5 {INR} [facility] Prothrombin Time w/INRon INR Coag (PPP) [Relative time] 2.5 {INR} Normal [facility] Comment on above: Order Comment: 411.2 Performed By: #### L 300.3900 ####[facility] [address] [place], [address] PT Coag (PPP) [Time] 27.5 s High 11.7-14.9 [facility] Comment on above: Order Comment: 411.2 Performed By: #### L 300.3900 ####[facility] [address] [place], [place], [phone] Prothrombin timeOrdered By: Kvng Crisostomo on 06-26-2024 PT Coag (PPP) [Time] 27.5 s High 11.7-14.9 [facility] International normalized rat io (INR) calculationOrdered By: Carlos Cavazos on 06-23-2024 INR Coag (Bld) [Relative time] 2.8 {INR} [facility] Prothrombin Time w/INRon INR Coag (PPP) [Relative time] 2.8 {INR} Normal [facility] Comment on above: Order Comment: 411-2 Performed By: #### L 300.3900 ####[facility] [address] [place], [address] PT Coag (PPP) [Time] 29.7 s High 11.7-14.9 [facility] Comment on above: Order Comment: 411-2 Performed By: #### L 300.3900 ####[facility] [address] [place], [address] Prothrombin timeOrdered By: Carlos Cavazos on 06-23-2024 PT Coag (PPP) [Time] 29.7 s High 11.7-14.9 [facility] International normalized rat io (INR) calculationOrdered By: Kvng Crisostomo on 06-19-2024 INR Coag (Bld) [Relative time] 2.6 {INR} [facility] Prothrombin Time w/INRon INR Coag (PPP) [Relative time] 2.6 {INR} Normal [facility] Comment on above: Order Comment: 411.2 Performed By: #### L 300.3900 ####[facility] [address] [place], [address] PT Coag (PPP) [Time] 28.6 s High 11.7-14.9 [facility] Comment on above: Order Comment: 411.2 Performed By: #### L 300.3900 ####[facility] [address] [place], [address] Prothrombin timeOrdered By: Kvng Crisostomo on 06-19-2024 PT Coag (PPP) [Time] 28.6 s High 11.7-14.9 [facility] International normalized rat io (INR) calculationOrdered By: Kvng Crisostomo on 06-16-2024 INR Coag (Bld) [Relative time] 2.5 {INR} [facility] Prothrombin Time w/INRon INR Coag (PPP) [Relative time] 2.5 {INR} Normal [facility] Comment on above: Order Comment: 411.2 Performed By: #### L 300.3900 ####[facility] [address] [place], [address] PT Coag (PPP) [Time] 27.3 s High 11.7-14.9 [facility] Comment on above: Order Comment: 411.2 Performed By: #### L 300.3900 ####[facility] [address] [place], [address] Prothrombin timeOrdered By: Kvng Crisostomo on 06-16-2024 PT Coag (PPP) [Time] 27.3 s High 11.7-14.9 [facility] International normalized rat io (INR) calculationOrdered By: Kvng Crisostomo on 06-12-2024 INR Coag (Bld) [Relative time] 2.1 {INR} [facility] Prothrombin Time w/INRon INR Coag (PPP) [Relative time] 2.1 {INR} Normal [facility] Comment on above: Order Comment: 411.2 Performed By: #### L 300.3900 ####[facility] [address] [place], [address] PT Coag (PPP) [Time] 24.0 s High 11.7-14.9 [facility] Comment on above: Order Comment: 411.2 Performed By: #### L 300.3900 ####[facility] [address] [place], [address] Prothrombin timeOrdered By: Kvng Crisostomo on 06-12-2024 PT Coag (PPP) [Time] 24.0 s High 11.7-14.9 [facility] International normalized rat io (INR) calculationOrdered By: Carlos Cavazos on 06-09-2024 INR Coag (Bld) [Relative time] 1.5 {INR} [facility] Prothrombin Time w/INRon INR Coag (PPP) [Relative time] 1.5 {INR} Normal [facility] Comment on above: Order Comment: 411-2 Performed By: #### L 300.3900 ####[facility] [address] [place], [address] PT Coag (PPP) [Time] 18.0 s High 11.7-14.9 [facility] Comment on above: Order Comment: 411-2 Performed By: #### L 300.3900 ####[facility] [address], [address] Prothrombin timeOrdered By: Carlos Cavazos on 06-09-2024 PT Coag (PPP) [Time] 18.0 s High 11.7-14.9 [facility] International normalized rat io (INR) calculationOrdered By: Kvng Crisostomo on 06-05-2024 INR Coag (Bld) [Relative time] 2.8 {INR} [facility] Prothrombin Time w/INRon INR Coag (PPP) [Relative time] 2.8 {INR} Normal [facility] Comment on above: Order Comment: 411.2 Performed By: #### L 300.3900 ####[facility] [address], [address] PT Coag (PPP) [Time] 30.3 s High 11.7-14.9 [facility] Comment on above: Order Comment: 411.2 Performed By: #### L 300.3900 ####[facility] [address] [place], [address] Prothrombin timeOrdered By: Kvng Crisostomo on 06-05-2024 PT Coag (PPP) [Time] 30.3 s High 11.7-14.9 [facility] International normalized rat io (INR) calculationOrdered By: Kvng Crisostomo on 06-02-2024 INR Coag (Bld) [Relative time] 2.6 {INR} [facility] Prothrombin Time w/INRon INR Coag (PPP) [Relative time] 2.6 {INR} Normal [facility] Comment on above: Order Comment: 411.2 Performed By: #### L 300.3900 ####[facility] [address] [place], [address] PT Coag (PPP) [Time] 28.6 s High 11.7-14.9 [facility] Comment on above: Order Comment: 411.2 Performed By: #### L 300.3900 ####[facility] [address] [facility] [address] Prothrombin timeOrdered By: Kvng Crisostomo on 06-02-2024 PT Coag (PPP) [Time] 28.6 s High 11.7-14.9 [facility] International normalized rat io (INR) calculationOrdered By: Kvng Crisostomo on 05-29-2024 INR Coag (Bld) [Relative time] 2.5 {INR} [facility] Prothrombin Time w/INRon INR Coag (PPP) [Relative time] 2.5 {INR} Normal [facility] Comment on above: Order Comment: 411.2 Performed By: #### L 300.3900 ####[facility] [address] [place], [address] PT Coag (PPP) [Time] 27.7 s High 11.7-14.9 [facility] Comment on above: Order Comment: 411.2 Performed By: #### L 300.3900 ####[facility] [address] [place], [address] Prothrombin timeOrdered By: Kvng Crisostomo on 05-29-2024 PT Coag (PPP) [Time] 27.7 s High 11.7-14.9 [facility] International normalized rat io (INR) calculationOrdered By: Carlos Cavazos on 05-26-2024 INR Coag (Bld) [Relative time] 2.2 {INR} [facility] Prothrombin Time w/INRon INR Coag (PPP) [Relative time] 2.2 {INR} Normal [facility] Comment on above: Order Comment: 411-2 Performed By: #### L 300.3900 ####[facility] [address] [place], [place], [phone] PT Coag (PPP) [Time] 24.5 s High 11.7-14.9 [facility] Comment on above: Order Comment: 411-2 Performed By: #### L 300.3900 ####[facility] [address] [place], [address] Prothrombin timeOrdered By: Carlos Cavazos on 05-26-2024 PT Coag (PPP) [Time] 24.5 s High 11.7-14.9 [facility] International normalized rat io (INR) calculationOrdered By: Kvng Crisostomo on 05-22-2024 INR Coag (Bld) [Relative time] 2.8 {INR} [facility] Prothrombin Time w/INRon INR Coag (PPP) [Relative time] 2.8 {INR} Normal [facility] Comment on above: Order Comment: 411.2 Performed By: #### L 300.3900 ####[facility] [address] [place], [place], [phone] PT Coag (PPP) [Time] 30.3 s High 11.7-14.9 [facility] Comment on above: Order Comment: 411.2 Performed By: #### L 300.3900 ####[facility] [address] [place], [address] Prothrombin timeOrdered By: Kvng Crisostomo on 05-22-2024 PT Coag (PPP) [Time] 30.3 s High 11.7-14.9 [facility] International normalized rat io (INR) calculationOrdered By: Knvg Crisostomo on 05-20-2024 INR Coag (Bld) [Relative time] 4.0 {INR} High [facility] Comment on above: CRITICAL VALUE CASEY D TO [id number]/14/25 08 Diana Srinivasan.RESULTS READ BACK BY SAME. Prothrombin Time w/INRon INR Coag (PPP) [Relative time] 4.0 {INR} Invalid Interpretation Code [facility] Comment on above: Order Comment: 411.2 Result Comment: CRIT ICAL VALUE CALLED TO [id number]/14/25 [facility] Diana Mattson.RESULTS READ BACK BY SAME. Performed By: #### L 300.3900 ####[facility] [address] [place], [place], [phone]([phone]) PT Coag (PPP) [Time] 39.9 s High 11.7-14.9 [facility] Comment on above: Order Comment: 411.2 Performed By: #### L 300.3900 ####[facility] [address] [place], [place], [phone]([phone] Prothrombin timeOrdered By: Kvng Crisostomo on 05-20-2024 PT Coag (PPP) [Time] 39.9 s High 11.7-14.9 [facility] International normalized rat io (INR) calculationOrdered By: Kvng Crisostomo on 05-19-2024 INR Coag (Bld) [Relative time] 3.4 {INR} [facility] Prothrombin Time w/INRon INR Coag (PPP) [Relative time] 3.4 {INR} Normal [facility] Comment on above: Order Comment: 411.2 Performed By: #### L 300.3900 ####[facility] [address] [place], [place], [phone] PT Coag (PPP) [Time] 35.4 s High 11.7-14.9 [facility] Comment on above: Order Comment: 411.2 Performed By: #### L 300.3900 ####[facility] [address] [place], [place], [phone]([phone] Prothrombin timeOrdered By: Kvng Crisostomo on 05-19-2024 PT Coag (PPP) [Time] 35.4 s High 11.7-14.9 [facility] International normalized rat io (INR) calculationOrdered By: Kvng Crisostomo on 05-15-2024 INR Coag (Bld) [Relative time] 2.6 {INR} [facility] Prothrombin Time w/INRon INR Coag (PPP) [Relative time] 2.6 {INR} Normal [facility] Comment on above: Order Comment: 411.2 Performed By: #### L 300.3900 ####[facility] [address] [place], [place], [phone] PT Coag (PPP) [Time] 28.7 s High 11.7-14.9 [facility] Comment on above: Order Comment: 411.2 Performed By: #### L 300.3900 ####[facility] [address] [place], [address] Prothrombin timeOrdered By: Kvng Crisostomo on 05-15-2024 PT Coag (PPP) [Time] 28.7 s High 11.7-14.9 [facility] International normalized rat io (INR) calculationOrdered By: Carlos Cavazos on 05-12-2024 INR Coag (Bld) [Relative time] 2.1 {INR} [facility] Prothrombin Time w/INRon INR Coag (PPP) [Relative time] 2.1 {INR} Normal [facility] Comment on above: Order Comment: 411-2 Performed By: #### L 300.3900 ####[facility] [address] [place], [address] PT Coag (PPP) [Time] 24.1 s High 11.7-14.9 [facility] Comment on above: Order Comment: 411-2 Performed By: #### L 300.3900 ####[facility] [address] [place], [place], [phone] Prothrombin timeOrdered By: Carlos Cavazos on 05-12-2024 PT Coag (PPP) [Time] 24.1 s High 11.7-14.9 [facility] International normalized rat io (INR) calculationOrdered By: Kvng Crisostomo on 05-09-2024 INR Coag (Bld) [Relative time] 3.4 {INR} [facility] Prothrombin Time w/INRon INR Coag (PPP) [Relative time] 3.4 {INR} Normal [facility] Comment on above: Order Comment: 411.2 Performed By: #### L 300.3900 ####[facility] [address] [place], [place], [phone] PT Coag (PPP) [Time] 35.4 s High 11.7-14.9 [facility] Comment on above: Order Comment: 411.2 Performed By: #### L 300.3900 ####[facility] [address] [place], [place], [phone] Prothrombin timeOrdered By: Kvng Crisostomo on 05-09-2024 PT Coag (PPP) [Time] 35.4 s High 11.7-14.9 [facility] International normalized rat io (INR) calculationOrdered By: Kvng Crisostomo on 05-08-2024 INR Coag (Bld) [Relative time] 4.1 {INR} High [facility] Comment on above: CRITICAL VALUE CASEY D TO [facility]05/08/24 0950 Karen Jamison.RESULTS READ BACK BY SAME. Prothrombin Time w/INRon INR Coag (PPP) [Relative time] 4.1 {INR} Invalid Interpretation Code [facility] Comment on above: Order Comment: 411.2 Result Comment: CRIT ICAL VALUE CALLED TO [facility]IRSTONPR05/08/24 0950 Karen Jamison.RESULTS READ BACK BY SAME. Performed By: #### L 300.3900 ####[facility] [address] [place], [address] PT Coag (PPP) [Time] 40.8 s High 11.7-14.9 [facility] Comment on above: Order Comment: 411.2 Performed By: #### L 300.3900 ####[facility] [address] [place], [address] Prothrombin timeOrdered By: Babbaljeet Andressa on 05-08-2024 PT Coag (PPP) [Time] 40.8 s High 11.7-14.9 [facility] International normalized rat io (INR) calculationOrdered By: Babbaljeet Crisostomo on 05-05-2024 INR Coag (Bld) [Relative time] 3.2 {INR} [facility] Prothrombin Time w/INRon INR Coag (PPP) [Relative time] 3.2 {INR} Normal [facility] Comment on above: Order Comment: 411.2 Performed By: #### L 300.3900 ####[facility] [address] [place], [address] PT Coag (PPP) [Time] 32.5 s High 11.7-14.9 [facility] Comment on above: Order Comment: 411.2 Performed By: #### L 300.3900 ####[facility] [address] [place], [address] Prothrombin timeOrdered By: Babbaljeet Crisostomo on 05-05-2024 PT Coag (PPP) [Time] 32.5 s High 11.7-14.9 [facility] International normalized rat io (INR) calculationOrdered By: Babbaljeet Crisostomo on 05-01-2024 INR Coag (Bld) [Relative time] 3.1 {INR} [facility] Prothrombin Time w/INRon INR Coag (PPP) [Relative time] 3.1 {INR} Normal [facility] Comment on above: Order Comment: 411.2 Performed By: #### L 300.3900 ####[facility] [address] [place], [address] PT Coag (PPP) [Time] 31.9 s High 11.7-14.9 [facility] Comment on above: Order Comment: 411.2 Performed By: #### L 300.3900 ####[facility] [address] [place], [address] Prothrombin timeOrdered By: Kvng Crisostomo on 05-01-2024 PT Coag (PPP) [Time] 31.9 s High 11.7-14.9 [facility] International normalized rat io (INR) calculationOrdered By: Carlos Cavazos on 04-28-2024 INR Coag (Bld) [Relative time] 2.6 {INR} [facility] Prothrombin Time w/INRon INR Coag (PPP) [Relative time] 2.6 {INR} Normal [facility] Comment on above: Order Comment: 411-2 Performed By: #### L 300.3900 ####[facility] [address] [place], [address] PT Coag (PPP) [Time] 27.3 s High 11.7-14.9 [facility] Comment on above: Order Comment: 411-2 Performed By: #### L 300.3900 ####[facility] [address] [place], [address] Prothrombin timeOrdered By: Carlos Cavazos on 04-28-2024 PT Coag (PPP) [Time] 27.3 s High 11.7-14.9 [facility] [facility] normalized rat io (INR) calculationOrdered By: Kvng Crisostomo on 04-24-2024 INR Coag (Bld) [Relative time] 3.6 {INR} [facility] Prothrombin Time w/INRon INR Coag (PPP) [Relative time] 3.6 {INR} Normal [facility] Comment on above: Order Comment: 411.2 Performed By: #### L 300.3900 ####[facility] [address] [place], [address] PT Coag (PPP) [Time] 35.6 s High 11.7-14.9 [facility] Comment on above: Order Comment: 411.2 Performed By: #### L 300.3900 ####[facility] [address] [place], [address] Prothrombin timeOrdered By: Kvng Crisostomo on 04-24-2024 PT Coag (PPP) [Time] 35.6 s High 11.7-14.9 [facility] normalized rat io (INR) calculationOrdered By: Carlos Cavazos on 04-21-2024 INR Coag (Bld) [Relative time] 2.8 {INR} [facility] Prothrombin Time w/INRon INR Coag (PPP) [Relative time] 2.8 {INR} Normal [facility] Comment on above: Order Comment: 411-2 Performed By: #### L 300.3900 ####[facility] [address] [place], [address] PT Coag (PPP) [Time] 29.4 s High 11.7-14.9 [facility] Comment on above: Order Comment: 411-2 Performed By: #### L 300.3900 ####[facility] [address] [place], [address] Prothrombin timeOrdered By: Carlos Cavazos on 04-21-2024 PT Coag (PPP) [Time] 29.4 s High 11.7-14.9 [facility] normalized rat io (INR) calculationOrdered By: Kvng Crisostomo on 04-17-2024 INR Coag (Bld) [Relative time] 3.1 {INR} [facility] Prothrombin Time w/INRon INR Coag (PPP) [Relative time] 3.1 {INR} Normal [facility] Comment on above: Order Comment: 411.2 Performed By: #### L 300.3900 ####[facility] [address] [place], [place], [phone](226) Prothrombin timeOrdered By: Kvng Crisostomo on 04-17-2024 PT Coag (PPP) [Time] 31.3 s High 11.7-14.9 [facility] Comment on above: Order Comment: 411.2 Performed By: #### L 300.3900 ####[facility] [address] [place], [place], [phone](520) International normalized rat io (INR) calculationOrdered By: Kvng Crisostomo on 04-14-2024 INR Coag (Bld) [Relative time] 3.3 {INR} [facility] Prothrombin Time w/INRon INR Coag (PPP) [Relative time] 3.3 {INR} Normal [facility] Comment on above: Order Comment: 411.2 Performed By: #### L 300.3900 ####[facility] [address] [place], [place], [phone]) PT Coag (PPP) [Time] 33.2 s High 11.7-14.9 [facility] Comment on above: Order Comment: 411.2 Performed By: #### L 300.3900 ####[facility] [address] [place], [place], [phone](164) Prothrombin timeOrdered By: Kvng Crisostomo on 04-14-2024 PT Coag (PPP) [Time] 33.2 s High 11.7-14.9 [facility] normalized rat io (INR) calculationOrdered By: Kvng Crisostomo on 04-10-2024 INR Coag (Bld) [Relative time] 2.8 {INR} [facility] Prothrombin Time w/INRon INR Coag (PPP) [Relative time] 2.8 {INR} Normal [facility] Comment on above: Order Comment: 411.2 Performed By: #### L 300.3900 ####[facility] [address] [place], [address] PT Coag (PPP) [Time] 29.2 s High 11.7-14.9 [facility] Comment on above: Order Comment: 411.2 Performed By: #### L 300.3900 ####[facility] [address] [place], [address] Prothrombin timeOrdered By: Kvng Crisostomo on 04-10-2024 PT Coag (PPP) [Time] 29.2 s High 11.7-14.9 [facility] normalized rat io (INR) calculationOrdered By: Carlos Cavazos on 04-07-2024 INR Coag (Bld) [Relative time] 2.7 {INR} [facility] Prothrombin Time w/INRon INR Coag (PPP) [Relative time] 2.7 {INR} Normal [facility] Comment on above: Order Comment: 411-2 Performed By: #### L 300.3900 ####[facility] [address] [place], [address] PT Coag (PPP) [Time] 28.1 s High 11.7-14.9 [facility] Comment on above: Order Comment: 411-2 Performed By: #### L 300.3900 ####[facility] [address] [place], [address] Prothrombin timeOrdered By: Carlos Cavazos on 04-07-2024 PT Coag (PPP) [Time] 28.1 s High 11.7-14.9 [facility] normalized rat io (INR) calculationOrdered By: Kvng Crisostomo on 04-04-2024 INR Coag (Bld) [Relative time] 2.8 {INR} [facility] Prothrombin Time w/INRon INR Coag (PPP) [Relative time] 2.8 {INR} Normal [facility] Comment on above: Order Comment: 411.2 Performed By: #### L 300.3900 ####[facility] [address] [place], [address] PT Coag (PPP) [Time] 28.9 s High 11.7-14.9 [facility] Comment on above: Order Comment: 411.2 Performed By: #### L 300.3900 ####[facility] [address] [place], [address] Prothrombin timeOrdered By: Kvng Crisostomo on 04-04-2024 PT Coag (PPP) [Time] 28.9 s High 11.7-14.9 [facility] normalized rat io (INR) calculationOrdered By: Carlos Cavazos on 03-31-2024 INR Coag (Bld) [Relative time] 2.6 {INR} [facility] Prothrombin Time w/INRon INR Coag (PPP) [Relative time] 2.6 {INR} Normal [facility] Comment on above: Order Comment: 411-2 Performed By: #### L 300.3900 ####[facility] [address] [place], [address] PT Coag (PPP) [Time] 27.3 s High 11.7-14.9 [facility] Comment on above: Order Comment: 411-2 Performed By: #### L 300.3900 ####[facility] [address] [place], [address] Prothrombin timeOrdered By: Carlos Cavazos on 03-31-2024 PT Coag (PPP) [Time] 27.3 s High 11.7-14.9 [facility] normalized rat io (INR) calculationOrdered By: [employer] on 03-27-2024 INR Coag (Bld) [Relative time] 2.2 {INR} [facility] Prothrombin Time w/INRon INR Coag (PPP) [Relative time] 2.2 {INR} Normal [facility] Comment on above: Order Comment: 411.2 Performed By: #### L 300.3900 ####[facility] [address] [place], [address] PT Coag (PPP) [Time] 24.3 s High 11.7-14.9 [facility] Comment on above: Order Comment: 411.2 Performed By: #### L 300.3900 ####[facility] [address] [place], [address] Prothrombin timeOrdered By: [employer] on 03-27-2024 PT Coag (PPP) [Time] 24.3 s High 11.7-14.9 [facility] normalized rat io (INR) calculationOrdered By: Kvng Crisostomo on 03-24-2024 INR Coag (Bld) [Relative time] 1.8 {INR} [facility] Prothrombin Time w/INRon INR Coag (PPP) [Relative time] 1.8 {INR} Normal [facility] Comment on above: Order Comment: 411.2 Performed By: #### L 300.3900 ####[facility] [address] [place], [address] PT Coag (PPP) [Time] 20.7 s High 11.7-14.9 [facility] Comment on above: Order Comment: 411.2 Performed By: #### L 300.3900 ####[facility] [address] [place], [address] Prothrombin timeOrdered By: Kvng Crisostomo on 03-24-2024 PT Coag (PPP) [Time] 20.7 s High 11.7-14.9 [facility] normalized rat io (INR) calculationOrdered By: [employer] on 03-20-2024 INR Coag (Bld) [Relative time] 1.8 {INR} [facility] Prothrombin Time w/INRon INR Coag (PPP) [Relative time] 1.8 {INR} Normal [facility] Comment on above: Order Comment: 411.2 Performed By: #### L 300.3900 ####[facility] [address] [place], [address] PT Coag (PPP) [Time] 20.9 s High 11.7-14.9 [facility] Comment on above: Order Comment: 411.2 Performed By: #### L 300.3900 ####[facility] [address] [place], [address] Prothrombin timeOrdered By: [employer] on 03-20-2024 PT Coag (PPP) [Time] 20.9 s High 11.7-14.9 [facility] normalized rat io (INR) calculationOrdered By: Kvng Crisostomo on 03-19-2024 INR Coag (Bld) [Relative time] 2.4 {INR} [facility] Prothrombin Time w/INRon INR Coag (PPP) [Relative time] 2.4 {INR} Normal [facility] Comment on above: Order Comment: 411.2 Performed By: #### L 300.3900 ####[facility] [address] [place], [address] PT Coag (PPP) [Time] 26.4 s High 11.7-14.9 [facility] Comment on above: Order Comment: 411.2 Performed By: #### L 300.3900 ####[facility] [address] [place], [address] Prothrombin timeOrdered By: Kvng Crisostomo on 03-19-2024 PT Coag (PPP) [Time] 26.4 s High 11.7-14.9 [facility] normalized rat io (INR) calculationOrdered By: [employer] on 03-18-2024 INR Coag (Bld) [Relative time] 3.2 {INR} [facility] Prothrombin timeOrdered By: [employer] on 03-18-2024 PT Coag (PPP) [Time] 32.3 s High 11.7-14.9 [facility] normalized rat io (INR) calculationOrdered By: [employer] on 03-17-2024 INR Coag (Bld) [Relative time] 3.6 {INR} [facility] Prothrombin timeOrdered By: [employer] on 03-17-2024 PT Coag (PPP) [Time] 35.7 s High 11.7-14.9 [facility] normalized rat io (INR) calculationOrdered By: Carlos Cavazos on 03-14-2024 INR Coag (Bld) [Relative time] 3.5 {INR} [facility] Prothrombin timeOrdered By: Carlos Cavazos on 03-14-2024 PT Coag (PPP) [Time] 35.0 s High 11.7-14.9 [facility] normalized rat io (INR) calculationOrdered By: [employer] on 03-13-2024 INR Coag (Bld) [Relative time] 3.2 {INR} [facility] Prothrombin timeOrdered By: [employer] on 03-13-2024 PT Coag (PPP) [Time] 32.2 s High 11.7-14.9 [facility] Office Visiton 09-13-2023 Follow-up visit [id number] GurpreetTamie 1950 [address] Provider Department Center 09/13/2023 [id number] BUCK [facility] None Family History Problem Relation Age of Onset Heart disease Father Cancer Mother Family Status - Relation Status Age at Father Mother Level of Service:[address] [place] OFFICE/OUTPATIENT ESTABLISHED MOD MDM 30 MIN Reason for Visit and Comments: left flank pain [Other] - 8/10 pain when touched Normal [facility] Progress Noteon 09-13-2023 Progress Note Walt [...] Hydrocephalus, adult (CMS/HCC) (HCC) Kidney stone Neuropathy DATA MINING ANALYST (ventriculoperitoneal) shunt status Past Surgical History: Procedure [...] 03/02/2022 CR (more content not included)... Normal [facility] CT ABDOMEN PELVIS WO IV CONT Kelly 09-07-2023 CT ABDOMEN PELVIS WO IV CONTRAST Patient Name: ANDREW SIFUENTES : 1950 [id number] Exam Date/Time: 09/06/2023 18:14 Procedure: CT ABDOMEN [...] a kidney stone; pt has a hernia [place] [id number] 36 Lm on daughters vm t o advise them to call the number for the manager android to get clarification, and to call back with further questions [place] [id number] 36 Yes, they will need to call the number given to them. 36 Please advise [address] 08-21-2023 36 Name of caller: Zion holt Contact phone number: [phone] Relationship to Patient: patient Provider: MD Quinn Practice: [facility] Chief Complaint/Reason for Call: Shanthi called [...] to reach out to call Maury Cedeño Head Tennis Coach at [facility] [phone] to get clarifications. TEA did reach back out to [facility] and advised and provider Maury's #. Please advise Best time of day caller can be reached: Any Patient advised that office/PCP has 24-48 business hours to return their call: N/A [facility] Laboratory - CoagulationOrde red By: Carlos Cavazos on 08-21-2023 INR Coag (Bld) [Relative time] 2.7 {INR} [facility] PT Coag (PPP) [Time] 28.9 s 11.7-14.9 [facility] Office Visiton 08-13-2023 Follow-up visit [id number] Tamie Sifuentes cheng R 1950 [address] Provider Department Center 08/13/2023 [id number] BUCK [facility] None Family History Problem Relation Age of Onset Heart disease Father Cancer Mother Family Status - Relation Status Age at Father Mother Level of Service:52422 [place] OFFICE/OUTPATIENT NEW MODERATE MDM 45 MINUTES Reason for Visit and Comments: New Patient [542] - Bilateral flank pain, hx of kidney stones Nephrolithiasis [209680] Normal [facility] Progress Noteon 08-13-2023 Progress Note Walt [...] Hydrocephalus, adult (CMS/HCC) (HCC) 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 Normal [facility] No Panel InformationOrdered By: Carlos Cavazos on 08-03-2023 Levetiracetam (Keppra) Level 32.4 ug/mL 10.0-40.0 [facility] Comment on above: Performed at: [address] [id number] Director: Alpesh Vázquez MD, Phone: [phone] Basophil percentageOrdered B y: Carlos Cavazos on 07-20-2023 Chloride [Moles/Vol] 106 mmol/L 98-107 [facility] Glucose [Mass/Vol] 98 mg/dL 74-106 [facility] Hemoglobin (Bld) [Mass/Vol] 12.5 g/dL 13.0-16.5 [facility] Potassium [Moles/Vol] 4.3 mmol/L 3.5-5.1 [facility] Sodium [Moles/Vol] 135 mmol/L 136-145 [facility] WBC (Bld) [#/Vol] 13.0 10*3/uL 4.4-11.0 [facility] Determination of erythrocyte mean corpuscular volume (MCV)Ordered By: Carlos Cavazos on 07-20-2023 MCV (RBC) [Entitic vol] 86.2 fL 80-94 [facility] Erythrocyte distribution wid th ratioOrdered By: Carlos Cavazos on 07-20-2023 Erythrocyte distribution width (RBC) [Ratio] 15.3 % 11.6-14.6 [facility] Erythrocyte distribution wid th standard deviationOrdered By: Carlos Cavazos on 07-20-2023 Erythrocyte distribution width (RBC) [Entitic vol] 48.1 fL 35.1-43.9 [facility] Hematocrit Auto (Bld) [Volum e fraction]Ordered By: Carlos Cavazos on 07-20-2023 Hematocrit (Bld) [Volume fraction] 39.9 % 40-54 [facility] Laboratory - Chemistry and C hemistry - challengeOrdered By: Carlos Cavazos on 07-20-2023 CO2 [Moles/Vol] 24.0 mmol/L 21.0-32.0 [facility] Urea nitrogen/Creatinine [Mass ratio] 24.6 mg/mg 10-20 [facility] Laboratory - Hematology and Cell countsOrdered By: Carlos Cavazos on 07-20-2023 MCH (RBC) [Entitic mass] 27.0 pg 27.0-32.0 [facility] MCHC (RBC) [Mass/Vol] 31.3 g/dL 32-36 [facility] Platelet mean volume (Bld) [Entitic vol] 10.7 fL 6.2-12.0 [facility] Platelets (Bld) [#/Vol] 260 10*3/uL 150-450 [facility] No Panel InformationOrdered By: Carlos Cavazos on 07-20-2023 Estimated GFR (MDRD) Amer 114 mL/min >60 [facility] Comment on above: GFR Calc Estimated GFR (MDRD) Non-Af Amer 94 mL/min >60 [facility] Comment on above: Non- GFR Calc RBC Auto (Bld) [#/Vol]Ordere d By: Carlos Cavazos on 07-20-2023 RBC (Bld) [#/Vol] 4.63 10*6/uL 4.6-6.2 [facility] Serum or plasma calcium oral urement (mass/volume)Ordered By: Carlos Cavazos on 07-20-2023 Calcium [Mass/Vol] 8.6 mg/dL 8.5-10.1 [facility] Serum or plasma creatinine m easurement (mass/volume)Ordered By: Carlos Cavazos on 07-20-2023 Creatinine [Mass/Vol] 0.85 mg/dL 0.70-1.30 [facility] Comment on above: The validity of the calculated GFR & GFRAA in patients over 70 years has not been determined. Clinical correlation is essential. Serum or plasma urea nitroge n measurement (mass/volume)Ordered By: Carlos Cavazos on 07-20-2023 Urea nitrogen [Mass/Vol] 21 mg/dL 7-18 [facility] Thin prep Papanicolaou smear with manual screeningOrdered By: Carlos Cavazos on 07-20-2023 Thin prep Papanicolaou smear with manual screening 5 5-15 [facility] Basophil percentageOrdered B y: Carlos Cavazos on 07-18-2023 Chloride [Moles/Vol] 102 mmol/L 98-107 [facility] Glucose [Mass/Vol] 96 mg/dL 74-106 [facility] Hemoglobin (Bld) [Mass/Vol] 12.3 g/dL 13.0-16.5 [facility] Potassium [Moles/Vol] 4.2 mmol/L 3.5-5.1 [facility] Sodium [Moles/Vol] 136 mmol/L 136-145 [facility] WBC (Bld) [#/Vol] 14.7 10*3/uL 4.4-11.0 [facility] Determination of erythrocyte mean corpuscular volume (MCV)Ordered By: Carlos Cavazos on 07-18-2023 MCV (RBC) [Entitic vol] 85.4 fL 80-94 [facility] Erythrocyte distribution wid th ratioOrdered By: Carlos Cavazos on 07-18-2023 Erythrocyte distribution width (RBC) [Ratio] 15.1 % 11.6-14.6 [facility] Erythrocyte distribution wid th standard deviationOrdered By: Carlos Cavazos on 07-18-2023 Erythrocyte distribution width (RBC) [Entitic vol] 47.3 fL 35.1-43.9 [facility] Hematocrit Auto (Bld) [Volum e fraction]Ordered By: Carlos Cavazos on 07-18-2023 Hematocrit (Bld) [Volume fraction] 39.3 % 40-54 [facility] Laboratory - Chemistry and C hemistry - challengeOrdered By: Carlos Cavazos on 07-18-2023 CO2 [Moles/Vol] 27.0 mmol/L 21.0-32.0 [facility] Urea nitrogen/Creatinine [Mass ratio] 24.4 mg/mg 10-20 [facility] Laboratory - Hematology and Cell countsOrdered By: Carlos Cavazos on 07-18-2023 MCH (RBC) [Entitic mass] 26.7 pg 27.0-32.0 [facility] MCHC (RBC) [Mass/Vol] 31.3 g/dL 32-36 [facility] Platelet mean volume (Bld) [Entitic vol] 10.3 fL 6.2-12.0 [facility] Platelets (Bld) [#/Vol] 288 10*3/uL 150-450 [facility] No Panel InformationOrdered By: Carlos Cavazos on 07-18-2023 Estimated GFR (MDRD) Amer 113 mL/min >60 [facility] Comment on above: GFR Calc Estimated GFR (MDRD) Non-Af Amer 93 mL/min >60 [facility] Comment on above: Non- GFR Calc RBC Auto (Bld) [#/Vol]Ordere d By: Carlos Cavazos on 07-18-2023 RBC (Bld) [#/Vol] 4.60 10*6/uL 4.6-6.2 [facility] Serum or plasma calcium oral urement (mass/volume)Ordered By: Carlos Cavazos on 07-18-2023 Calcium [Mass/Vol] 8.9 mg/dL 8.5-10.1 [facility] Serum or plasma creatinine m easurement (mass/volume)Ordered By: Carlos Cavazos on 07-18-2023 Creatinine [Mass/Vol] 0.86 mg/dL 0.70-1.30 [facility] Comment on above: The validity of the calculated GFR & GFRAA in patients over 70 years has not been determined. Clinical correlation is essential. Serum or plasma urea nitroge n measurement (mass/volume)Ordered By: Carlos Cavazos on 07-18-2023 Urea nitrogen [Mass/Vol] 21 mg/dL 7-18 [facility] Thin prep Papanicolaou smear with manual screeningOrdered By: Carlos Cavazos on 07-18-2023 Thin prep Papanicolaou smear with manual screening 7 5-15 [facility] Basophil percentageOrdered B y: Carlos Cavazos on 07-17-2023 Basophil percentage 0-5 SEEN /hpf 0-5 [facility] Bilirubin Test strip Ql (U)O rdered By: Carlos Cavazos on 07-17-2023 Bilirubin Ql (U) Negative Negative [facility] Calcium oxalate crystals det ection in urine sediment by light microscopyOrdered By: Carlos Cavazos on 07-17-2023 Calcium oxalate crystals LM Ql (Urine sed) 1+ /hpf [facility] Culture, urineOrdered By: Sharif Crouch on 07-17-2023 Bacteria identified Cx Nom (U) Positive [facility] Ketones Test strip Ql (U)Ord ered By: Carlos Cavazos on 07-17-2023 Ketones Ql (U) Negative Negative [facility] Mucus LM Ql (Urine sed)Order ed By: Carlos Cavazos on 07-17-2023 Mucus Ql (Urine sed) 0 SEEN /hpf [facility] Nitrite Test strip Ql (U)Ord ered By: Carlos Cavazos on 07-17-2023 Nitrite Ql (U) Negative Negative [facility] No Panel InformationOrdered By: Carlos Cavazos on 07-17-2023 Urine RBC 0 SEEN /hpf 0-5 [facility] Protein Test strip Ql (U)Ord ered By: Carlos Cavazos on 07-17-2023 Protein Ql (U) Negative Negative [facility] Squamous epithelial cells de tection in urine sediment by light microscopyOrdered By: Carlos Cavazos on 07-17-2023 Epithelial cells.squamous LM Ql (Urine sed) 0-5 SEEN /hpf 0-5 [facility] Urine blood detectionOrdered By: Carlos Cavazos on 07-17-2023 RBC Ql (U) Negative Negative [facility] Urine clarityOrdered By: Ted Cavazos on 07-17-2023 Clarity (U) Clear Clear [facility] Urine color determinationOrd ered By: Carlos Cavazos on 07-17-2023 Color (U) Yellow Yellow [facility] Urine glucose detectionOrder ed By: Carlos Cavazos on 07-17-2023 Glucose Ql (U) Normal mg/dl Normal [facility] Urine leukocyte esterase det ection by dipstickOrdered By: Carlos Cavazos on 07-17-2023 Leukocyte esterase Test strip Ql (U) 25 /ul Negative [facility] Urine pHOrdered By: Carlos flores on 07-17-2023 pH (U) 6.0 [pH] 5.0 - 8.0 [facility] Urine sediment bacteria coun t by microscopy (number/high power field)Ordered By: Carlos Cavazos on 07-17-2023 Bacteria LM.HPF (Urine sed) [#/Area] 0 /[HPF] None Seen [facility] Urine specific gravity measu rementOrdered By: Carlos Cavazos on 07-17-2023 Specific gravity (U) [Rel density] 1.020 1.002-1.030 [facility] Urine urobilinogen measureme ntOrdered By: Carlos Cavazos on 07-17-2023 Urobilinogen Ql (U) Normal mg/dl Normal [facility] Absolute lymphocyte countOrd ered By: Carlos Cavazos on 07-16-2023 Lymphocytes Auto (Unsp spec) [#/Vol] 6.02 10*3/uL 0.83-4.51 [facility] Automated lymphocyte count a s percentage of total leukocytesOrdered By: Carlos Cavazos on 07-16-2023 Lymphocytes/100 WBC Auto (Unsp spec) 49.1 % 19-41 [facility] Basophil percentageOrdered B y: Carlos Cavazos on 07-16-2023 Basophils/100 WBC (Bld) 0.6 % 0-1 [facility] Chloride [Moles/Vol] 105 mmol/L 98-107 [facility] Eosinophils/100 WBC (Bld) 2.0 % 0-5 [facility] Glucose [Mass/Vol] 93 mg/dL 74-106 [facility] Hemoglobin (Bld) [Mass/Vol] 12.1 g/dL 13.0-16.5 [facility] Monocytes/100 WBC (Bld) 5.3 % 0-10 [facility] Neutrophils (Bld) [#/Vol] 5.2 10*3/uL 2.0-7.7 [facility] Neutrophils/100 WBC (Bld) 42.8 % 47-70 [facility] Potassium [Moles/Vol] 4.3 mmol/L 3.5-5.1 [facility] Sodium [Moles/Vol] 138 mmol/L 136-145 [facility] WBC (Bld) [#/Vol] 12.3 10*3/uL 4.4-11.0 [facility] Blood manual differential co mment interpretation (narrative result)Ordered By: Carlos Cavazos on 07-16-2023 Manual differential comment Shemar (Bld) [Interp] SCANNED [facility] Determination of erythrocyte mean corpuscular volume (MCV)Ordered By: Carlos Cavazos on 07-16-2023 MCV (RBC) [Entitic vol] 86.8 fL 80-94 [facility] Erythrocyte distribution wid th ratioOrdered By: Calros Cavazos on 07-16-2023 Erythrocyte distribution width (RBC) [Ratio] 15.3 % 11.6-14.6 [facility] Erythrocyte distribution wid th standard deviationOrdered By: Carlos Cavazos on 07-16-2023 Erythrocyte distribution width (RBC) [Entitic vol] 48.9 fL 35.1-43.9 [facility] Hematocrit Auto (Bld) [Volum e fraction]Ordered By: Carlos Cavazos on 07-16-2023 Hematocrit (Bld) [Volume fraction] 38.7 % 40-54 [facility] Immature granulocytes/100 WB C Auto (Bld)Ordered By: Carlos Cavazos on 07-16-2023 Immature granulocytes/100 WBC (Bld) 0.200 % 0.0-0.9 [facility] Comment on above: IG% - Immature Granu locytes (promyelocytes, myelocytes and metamyelocytes) > 1% indicates that a LEFT SHIFT is Present. Laboratory - Chemistry and C hemistry - challengeOrdered By: Carlos Cavazos on 07-16-2023 CO2 [Moles/Vol] 25.0 mmol/L 21.0-32.0 [facility] Urea nitrogen/Creatinine [Mass ratio] 21.0 mg/mg 10-20 [facility] Laboratory - CoagulationOrde red By: Carlos Cavazos on 07-16-2023 INR Coag (Bld) [Relative time] 2.4 {INR} [facility] PT Coag (PPP) [Time] 25.7 s 11.7-14.9 [facility] Laboratory - Hematology and Cell countsOrdered By: Carlos Cavazos on 07-16-2023 MCH (RBC) [Entitic mass] 27.1 pg 27.0-32.0 [facility] MCHC (RBC) [Mass/Vol] 31.3 g/dL 32-36 [facility] Nucleated RBC/100 WBC (Bld) [Ratio] 0 % 0-5 [facility] Platelet mean volume (Bld) [Entitic vol] 10.5 fL 6.2-12.0 [facility] Platelets (Bld) [#/Vol] 289 10*3/uL 150-450 [facility] No Panel InformationOrdered By: Carlos Cavazos on 07-16-2023 Estimated GFR (MDRD) Amer 106 mL/min >60 [facility] Comment on above: GFR Calc Estimated GFR (MDRD) Non-Af Amer 88 mL/min >60 [facility] Comment on above: Non- GFR Calc Reactive Lymphocytes 1+ [facility] RBC Auto (Bld) [#/Vol]Ordere d By: Carlos Cavazos on 07-16-2023 RBC (Bld) [#/Vol] 4.46 10*6/uL 4.6-6.2 [facility] Serum or plasma calcium oral urement (mass/volume)Ordered By: Carlos Cavazos on 07-16-2023 Calcium [Mass/Vol] 9.0 mg/dL 8.5-10.1 [facility] Serum or plasma creatinine m easurement (mass/volume)Ordered By: Carlos Cavazos on 07-16-2023 Creatinine [Mass/Vol] 0.90 mg/dL 0.70-1.30 [facility] Comment on above: The validity of the calculated GFR & GFRAA in patients over 70 years has not been determined. Clinical correlation is essential. Serum or plasma urea nitroge n measurement (mass/volume)Ordered By: Carlos Cavazos on 07-16-2023 Urea nitrogen [Mass/Vol] 19 mg/dL 7-18 [facility] Thin prep Papanicolaou smear with manual screeningOrdered By: Carlos Cavazos on 07-16-2023 Thin prep Papanicolaou smear with manual screening 8 5-15 [facility] Absolute lymphocyte countOrd ered By: Carlos Cavazos on 07-13-2023 Lymphocytes Auto (Unsp spec) [#/Vol] 5.44 10*3/uL 0.83-4.51 [facility] Automated lymphocyte count a s percentage of total leukocytesOrdered By: Carlos Cavazos on 07-13-2023 Lymphocytes/100 WBC Auto (Unsp spec) 47.3 % 19-41 [facility] Basophil percentageOrdered B y: Carlos Cavazos on 07-13-2023 Basophils/100 WBC (Bld) 0.4 % 0-1 [facility] Chloride [Moles/Vol] 107 mmol/L 98-107 [facility] Eosinophils/100 WBC (Bld) 1.7 % 0-5 [facility] Glucose [Mass/Vol] 96 mg/dL 74-106 [facility] Hemoglobin (Bld) [Mass/Vol] 13.5 g/dL 13.0-16.5 [facility] Monocytes/100 WBC (Bld) 4.3 % 0-10 [facility] Neutrophils (Bld) [#/Vol] 5.3 10*3/uL 2.0-7.7 [facility] Neutrophils/100 WBC (Bld) 46.0 % 47-70 [facility] Potassium [Moles/Vol] 4.0 mmol/L 3.5-5.1 [facility] Sodium [Moles/Vol] 139 mmol/L 136-145 [facility] WBC (Bld) [#/Vol] 11.5 10*3/uL 4.4-11.0 [facility] Determination of erythrocyte mean corpuscular volume (MCV)Ordered By: Carlos Cavazos on 07-13-2023 MCV (RBC) [Entitic vol] 86.1 fL 80-94 [facility] Erythrocyte distribution wid th ratioOrdered By: Carlos Cavazos on 07-13-2023 Erythrocyte distribution width (RBC) [Ratio] 15.2 % 11.6-14.6 [facility] Erythrocyte distribution wid th standard deviationOrdered By: Carlos Cavazos on 07-13-2023 Erythrocyte distribution width (RBC) [Entitic vol] 48.0 fL 35.1-43.9 [facility] Hematocrit Auto (Bld) [Volum e fraction]Ordered By: Carlos Cavazos on 07-13-2023 Hematocrit (Bld) [Volume fraction] 42.2 % 40-54 [facility] Immature granulocytes/100 WB C Auto (Bld)Ordered By: Carlos Cavazos on 07-13-2023 Immature granulocytes/100 WBC (Bld) 0.300 % 0.0-0.9 [facility] Comment on above: IG% - Immature Granu locytes (promyelocytes, myelocytes and metamyelocytes) > 1% indicates that a LEFT SHIFT is Present. Laboratory - Chemistry and C hemistry - challengeOrdered By: Carlos Cavazos on 07-13-2023 CO2 [Moles/Vol] 26.0 mmol/L 21.0-32.0 [facility] Urea nitrogen/Creatinine [Mass ratio] 21.8 mg/mg 10-20 [facility] Laboratory - Hematology and Cell countsOrdered By: Carlos Cavazos on 07-13-2023 MCH (RBC) [Entitic mass] 27.6 pg 27.0-32.0 [facility] MCHC (RBC) [Mass/Vol] 32.0 g/dL 32-36 [facility] Nucleated RBC/100 WBC (Bld) [Ratio] 0 % 0-5 [facility] Platelet mean volume (Bld) [Entitic vol] 10.1 fL 6.2-12.0 [facility] Platelets (Bld) [#/Vol] 279 10*3/uL 150-450 [facility] No Panel InformationOrdered By: Carlos Cavazos on 07-13-2023 Estimated GFR (MDRD) Amer 118 mL/min >60 [facility] Comment on above: GFR Calc Estimated GFR (MDRD) Non-Af Amer 98 mL/min >60 [facility] Comment on above: Non- GFR Calc Levetiracetam (Keppra) Level 25.5 ug/mL 10.0-40.0 [facility] Comment on above: Performed at: [address] [id number] Director: Alpesh Vázquez MD, Phone: [phone] RBC Auto (Bld) [#/Vol]Ordere d By: Carlso Cavazos on 07-13-2023 RBC (Bld) [#/Vol] 4.90 10*6/uL 4.6-6.2 [facility] Serum or plasma calcium oral urement (mass/volume)Ordered By: Carlos Cavazos on 07-13-2023 Calcium [Mass/Vol] 9.1 mg/dL 8.5-10.1 [facility] Serum or plasma creatinine m easurement (mass/volume)Ordered By: Carlos Cavazos on 07-13-2023 Creatinine [Mass/Vol] 0.82 mg/dL 0.70-1.30 [facility] Comment on above: The validity of the calculated GFR & GFRAA in patients over 70 years has not been determined. Clinical correlation is essential. Serum or plasma urea nitroge n measurement (mass/volume)Ordered By: Carlos Cavazos on 07-13-2023 Urea nitrogen [Mass/Vol] 18 mg/dL 7-18 [facility] Thin prep Papanicolaou smear with manual screeningOrdered By: Carlos Cavazos on 07-13-2023 Thin prep Papanicolaou smear with manual screening 6 5-15 [facility] No Panel InformationOrdered By: Carlos Cavazos on 07-12-2023 Valproic Acid (Depakene) Level < 3 ug/mL 50-100 [facility] Laboratory - CoagulationOrde red By: Carlos Cavazos on 07-05-2023 INR Coag (Bld) [Relative time] 2.4 {INR} [facility] PT Coag (PPP) [Time] 26.3 s 11.7-14.9 [facility] Laboratory - CoagulationOrde red By: Carlos Cavazos on 07-02-2023 INR Coag (Bld) [Relative time] 1.5 {INR} [facility] PT Coag (PPP) [Time] 18.5 s 11.7-14.9 [facility] Laboratory - CoagulationOrde red By: Carlos Cavazos on 06-28-2023 INR Coag (Bld) [Relative time] 1.7 {INR} [facility] PT Coag (PPP) [Time] 20.5 s 11.7-14.9 [facility] 36on 06-25-2023 36 [facility] called in stating appt scheduled 07/10/23 [place] has to be made further out, pt being transported by cot. Changed appt to 08/13/[address] [facility] only avail time for transport, first avail with DR Buck at 10:00 AM. Laboratory - CoagulationOrde red By: Carlos Cavazos on 06-25-2023 INR Coag (Bld) [Relative time] 3.8 {INR} [facility] PT Coag (PPP) [Time] 38.2 s 11.7-14.9 [facility] Laboratory - CoagulationOrde red By: Carlos Cavazos on 06-21-2023 INR Coag (Bld) [Relative time] 3.2 {INR} [facility] PT Coag (PPP) [Time] 32.9 s 11.7-14.9 [facility] No Panel InformationOrdered By: Carlos Cavazos on 06-13-2023 Valproic Acid (Depakene) Level < 3 ug/mL 50-100 [facility] Laboratory - CoagulationOrde red By: Carlos Cavazos on 06-06-2023 PT Coag (PPP) [Time] 30.5 s 11.7-14.9 [facility] Platelet poor plasma interna tional normalized ratio (INR)Ordered By: Carlos Cavazos on 06-06-2023 INR Coag (PPP) [Relative time] 2.9 {INR} [facility] International normalized rat io (INR) calculationOrdered By: Carlos Cavazos on 05-23-2023 INR Coag (PPP) [Relative time] 2.6 {INR} [facility] Laboratory - CoagulationOrde red By: Carlos Cavazos on 05-23-2023 PT Coag (PPP) [Time] 27.7 s 11.7-14.9 [facility] Laboratory - CoagulationOrde red By: Carlos Cavazos on 05-09-2023 PT Coag (PPP) [Time] 24.1 s 11.7-14.9 [facility] Whole blood international no rmalized ratio (INR)Ordered By: Carlos Cavazos on 05-09-2023 INR Coag (Bld) [Relative time] 2.1 {INR} [facility] Laboratory - CoagulationOrde red By: Carlos Cavazos on 04-23-2023 PT Coag (PPP) [Time] 26.4 s 11.7-14.9 [facility] Whole blood international no rmalized ratio (INR)Ordered By: Carlos Cavazos on 04-23-2023 INR Coag (Bld) [Relative time] 2.4 {INR} [facility] INR in Blood by Coagulation assayOrdered By: Carlos Cavazos on 04-09-2023 INR Coag (Bld) [Relative time] 2.1 {INR} [facility] Laboratory - CoagulationOrde red By: Carlos Cavazos on 04-09-2023 PT Coag (PPP) [Time] 23.9 s 11.7-14.9 [facility] INR in Blood by Coagulation assayOrdered By: Carlos Cavazos on 04-02-2023 INR Coag (Bld) [Relative time] 2.2 {INR} [facility] Laboratory - CoagulationOrde red By: Carlos Cavazos on 04-02-2023 PT Coag (PPP) [Time] 24.5 s 11.7-14.9 [facility] INR in Blood by Coagulation assayOrdered By: Carlos Cavazos on 03-26-2023 INR Coag (Bld) [Relative time] 1.7 {INR} [facility] Laboratory - CoagulationOrde red By: Carlos Cavazos on 03-26-2023 PT Coag (PPP) [Time] 19.9 s 11.7-14.9 [facility] INR in Blood by Coagulation assayOrdered By: Carlos Cavazos on 03-22-2023 INR Coag (Bld) [Relative time] 1.3 {INR} [facility] Laboratory - CoagulationOrde red By: Carlos Cavazos on 03-22-2023 PT Coag (PPP) [Time] 16.4 s 11.7-14.9 [facility] INR in Blood by Coagulation assayOrdered By: Carlos Cavazos on 03-08-2023 INR Coag (Bld) [Relative time] 2.0 {INR} [facility] Laboratory - CoagulationOrde red By: Carlos Cavazos on 03-08-2023 PT Coag (PPP) [Time] 22.5 s 11.7-14.9 [facility] Laboratory - CoagulationOrde red By: Carlos Cavazos on 02-22-2023 INR Coag (Bld) [Relative time] 2.2 {INR} [facility] Comment on above: Critical Value > 4.0 Whole blood prothrombin time Ordered By: Carlos Cavazos on 02-22-2023 PT Coag (Bld) [Time] 24.0 s 11.7-14.9 [facility] INR in Blood by Coagulation assayOrdered By: Cliff Bruner on 02-15-2023 INR Coag (Bld) [Relative time] 2.0 {INR} [facility] Laboratory - CoagulationOrde red By: Cliff Bruner on 02-15-2023 PT Coag (PPP) [Time] 22.8 s 11.7-14.9 [facility] INR in Blood by Coagulation assayOrdered By: Carlos Cavazos on 02-08-2023 INR Coag (Bld) [Relative time] 2.1 {INR} [facility] Laboratory - CoagulationOrde red By: Carlos Cavazos on 02-08-2023 PT Coag (PPP) [Time] 23.5 s 11.7-14.9 [facility] INR in Blood by Coagulation assayOrdered By: Carlos Cavazos on 01-31-2023 INR Coag (Bld) [Relative time] 2.0 {INR} [facility] Laboratory - CoagulationOrde red By: Carlos Cavazos on 01-31-2023 PT Coag (PPP) [Time] 22.4 s 11.7-14.9 [facility] Laboratory - CoagulationOrde red By: Carlos Cavazos on 01-29-2023 INR Coag (Bld) [Relative time] 1.8 {INR} [facility] Comment on above: Critical Value > 4.0 Whole blood prothrombin time Ordered By: Carlos Cavazos on 01-29-2023 PT Coag (Bld) [Time] 19.9 s 11.7-14.9 [facility] INR in Blood by Coagulation assayOrdered By: Carlos Cavazos on 01-26-2023 INR Coag (Bld) [Relative time] 1.5 {INR} [facility] Laboratory - CoagulationOrde red By: Carlos Cavazos on 01-26-2023 PT Coag (PPP) [Time] 18.3 s 11.7-14.9 [facility] INR in Blood by Coagulation assayOrdered By: Carlos Cavazos on 01-24-2023 INR Coag (Bld) [Relative time] 1.3 {INR} [facility] Laboratory - CoagulationOrde red By: Carlos Cavazos on 01-24-2023 PT Coag (PPP) [Time] 16.2 s 11.7-14.9 [facility] Basophil percentageOrdered B y: Carlos Cavazos on 01-22-2023 Basophil percentage 0 SEEN /hpf 0-5 [facility] Bilirubin Test strip Ql (U)O rdered By: Carlos Cavazos on 01-22-2023 Bilirubin Ql (U) Negative Negative [facility] Calcium oxalate crystals det ection in urine sediment by light microscopyOrdered By: Carlos Cavazos on 01-22-2023 Calcium oxalate crystals LM Ql (Urine sed) 1+ /hpf [facility] Culture, urineOrdered By: Sharif Crouch on 01-22-2023 Bacteria identified Cx Nom (U) Positive [facility] Ketones Test strip Ql (U)Ord ered By: Carlos Cavazos on 01-22-2023 Ketones Ql (U) Negative Negative [facility] Mucus LM Ql (Urine sed)Order ed By: Carlos Cavazos on 01-22-2023 Mucus Ql (Urine sed) 1+ /hpf [facility] Nitrite Test strip Ql (U)Ord ered By: Carlos Cavazos on 01-22-2023 Nitrite Ql (U) Negative Negative [facility] Protein Test strip Ql (U)Ord ered By: Carlos Cavazos on 01-22-2023 Protein Ql (U) Negative Negative [facility] Squamous epithelial cells de tection in urine sediment by light microscopyOrdered By: Carlos Cavazos on 01-22-2023 Epithelial cells.squamous LM Ql (Urine sed) 0 SEEN /hpf 0-5 [facility] Urine blood detectionOrdered By: Carlos Cavazos on 01-22-2023 RBC Ql (U) Negative Negative [facility] RBC Ql (U) 0 SEEN /hpf 0-5 [facility] Urine clarityOrdered By: Ted Cavazos on 01-22-2023 Clarity (U) Sl. Cloudy Clear [facility] Urine color determinationOrd ered By: Carlos Cavazos on 01-22-2023 Color (U) Yellow Yellow [facility] Urine glucose detectionOrder ed By: Carlos Cavazos on 01-22-2023 Glucose Ql (U) Normal mg/dl Normal [facility] Urine leukocyte esterase det ection by dipstickOrdered By: Carlos Cavazos on 01-22-2023 Leukocyte esterase Test strip Ql (U) Negative Negative [facility] Urine pHOrdered By: Carlos flores on 01-22-2023 pH (U) 5.0 [pH] 5.0 - 8.0 [facility] Urine sediment bacteria coun t by microscopy (number/high power field)Ordered By: Carlos Cavazos on 01-22-2023 Bacteria LM.HPF (Urine sed) [#/Area] 2 /[HPF] None Seen [facility] Urine specific gravity measu rementOrdered By: Carlos Cavazos on 01-22-2023 Specific gravity (U) [Rel density] 1.025 1.002-1.030 [facility] Urobilinogen Auto test strip Ql (U)Ordered By: Carlos Cavazos on 01-22-2023 Urobilinogen Ql (U) Normal mg/dl Normal [facility] INR in Blood by Coagulation assayOrdered By: Carlos Cavazos on 01-10-2023 INR Coag (Bld) [Relative time] 2.0 {INR} [facility] Laboratory - CoagulationOrde red By: Carlos Cavazos on 01-10-2023 PT Coag (PPP) [Time] 22.6 s 11.7-14.9 [facility] INR in Blood by Coagulation assayOrdered By: Carlos Cavazos on 12-27-2022 INR Coag (Bld) [Relative time] 2.1 {INR} [facility] Laboratory - CoagulationOrde red By: Carlos Cavazos on 12-27-2022 PT Coag (PPP) [Time] 24.1 s 11.7-14.9 [facility] INR in Blood by Coagulation assayOrdered By: Carlos Cavazos on 12-21-2022 INR Coag (Bld) [Relative time] 2.4 {INR} [facility] Laboratory - CoagulationOrde red By: Carlos Cavazos on 12-21-2022 PT Coag (PPP) [Time] 26.7 s 11.7-14.9 [facility] Laboratory - CoagulationOrde red By: Carlos Cavazos on 12-14-2022 INR Coag (Bld) [Relative time] 2.3 {INR} [facility] Comment on above: Critical Value > 4.0 Whole blood prothrombin time Ordered By: Carlos Cavazos on 12-14-2022 PT Coag (Bld) [Time] 25.2 s 11.7-14.9 [facility] Laboratory - CoagulationOrde red By: Carlos Cavazos on 12-07-2022 INR Coag (Bld) [Relative time] 2.5 {INR} [facility] Comment on above: Critical Value > 4.0 Whole blood prothrombin time Ordered By: Carlos Cavazos on 12-07-2022 PT Coag (Bld) [Time] 26.9 s 11.7-14.9 [facility] Amorphous sediment detection in urine sediment by light microscopyOrdered By: Carlos Cavazos on 11-24-2022 Amorphous sediment LM Ql (Urine sed) 1+ [facility] Basophil percentageOrdered B y: Carlos Cavazos on 11-24-2022 Basophil percentage 0 SEEN /hpf 0-5 [facility] Bilirubin [Mass/Vol] 0.30 mg/dL 0.20-1.00 [facility] Comment on above: For patients on eltr ombopag therapy, use of Dimension [place] TBIL is not recommended. Chloride [Moles/Vol] 107 mmol/L 98-107 [facility] Glucose [Mass/Vol] 95 mg/dL 74-106 [facility] Potassium [Moles/Vol] 4.2 mmol/L 3.5-5.1 [facility] Protein [Mass/Vol] 6.9 g/dL 6.4-8.2 [facility] Sodium [Moles/Vol] 138 mmol/L 136-145 [facility] WBC (Bld) [#/Vol] 10.4 10*3/uL 4.4-11.0 [facility] Bilirubin Test strip Ql (U)O rdered By: Carlos Cavazos on 11-24-2022 Bilirubin Ql (U) Negative Negative [facility] Blood erythrocytes count (nu mber/volume)Ordered By: Carlos Cavazos on 11-24-2022 RBC (Bld) [#/Vol] 4.44 10*6/uL 4.6-6.2 [facility] Blood hemoglobin measurement (mass/volume)Ordered By: Carlos Cavazos on 11-24-2022 Hemoglobin (Bld) [Mass/Vol] 11.8 g/dL 13.0-16.5 [facility] Blood platelet mean volumeOr dered By: Carlos Cavazos on 11-24-2022 Platelet mean volume (Bld) [Entitic vol] 9.7 fL 6.2-12.0 [facility] Calcium oxalate crystals det ection in urine sediment by light microscopyOrdered By: Carlos Cavazos on 11-24-2022 Calcium oxalate crystals LM Ql (Urine sed) RARE /hpf [facility] Culture, urineOrdered By: Sharif Crouch on 11-24-2022 Bacteria identified Cx Nom (U) Positive [facility] Determination of erythrocyte mean corpuscular volume (MCV)Ordered By: Carlos Cavazos on 11-24-2022 MCV (RBC) [Entitic vol] 84.7 fL 80-94 [facility] Hematocrit Auto (Bld) [Volum e fraction]Ordered By: Carlos Cavazos on 11-24-2022 Hematocrit (Bld) [Volume fraction] 37.6 % 40-54 [facility] Ketones Test strip Ql (U)Ord ered By: Carlos Cavazos on 11-24-2022 Ketones Ql (U) Negative Negative [facility] Laboratory - Chemistry and C hemistry - challengeOrdered By: Carlos Cavazos on 11-24-2022 ALP [Catalytic activity/Vol] 103 U/L 45-117 [facility] ALT [Catalytic activity/Vol] 14 U/L 16-61 [facility] CO2 [Moles/Vol] 26.0 mmol/L 21.0-32.0 [facility] Globulin (S) [Mass/Vol] 4.0 g/dL 2.2-4.2 [facility] Urea nitrogen/Creatinine [Mass ratio] 24.1 mg/mg 10-20 [facility] Laboratory - Hematology and Cell countsOrdered By: Carlos Cavazos on 11-24-2022 Erythrocyte distribution width (RBC) [Entitic vol] 49.4 fL 35.1-43.9 [facility] Erythrocyte distribution width (RBC) [Ratio] 16.0 % 11.6-14.6 [facility] MCH (RBC) [Entitic mass] 26.6 pg 27.0-32.0 [facility] MCHC Auto (RBC) [Mass/Vol]Or dered By: Carlos Cavazos on 11-24-2022 MCHC (RBC) [Mass/Vol] 31.4 g/dL 32-36 [facility] Mucus LM Ql (Urine sed)Order ed By: Carlos Cavazos on 11-24-2022 Mucus Ql (Urine sed) 0 SEEN /hpf [facility] Nitrite Test strip Ql (U)Ord ered By: Carlos Cavazos on 11-24-2022 Nitrite Ql (U) Negative Negative [facility] No Panel InformationOrdered By: Carlos Cavazos on 11-24-2022 Estimated GFR (MDRD) Amer 118 mL/min >60 [facility] Comment on above: GFR Calc Estimated GFR (MDRD) Non-Af Amer 97 mL/min >60 [facility] Comment on above: Non- GFR Calc Platelets bldOrdered By: Ted Cavazos on 11-24-2022 Platelets (Bld) [#/Vol] 309 10*3/uL 150-450 [facility] Protein Test strip Ql (U)Ord ered By: Carlos Cavazos on 11-24-2022 Protein Ql (U) Negative Negative [facility] Serum or plasma albumin oral urement (mass/volume)Ordered By: Carlos Cavazos on 11-24-2022 Albumin [Mass/Vol] 2.9 g/dL 3.2-5.0 [facility] Serum or plasma albumin/glob ulin mass ratioOrdered By: Carlos Cavazos on 11-24-2022 Albumin/Globulin [Mass ratio] 0.7 {ratio} 0.9-2.4 [facility] Serum or plasma calcium oral urement (mass/volume)Ordered By: Carlos Cavazos on 11-24-2022 Calcium [Mass/Vol] 8.7 mg/dL 8.5-10.1 [facility] Serum or plasma creatinine m easurement (mass/volume)Ordered By: Carlos Cavazos on 11-24-2022 Creatinine [Mass/Vol] 0.83 mg/dL 0.70-1.30 [facility] Comment on above: The validity of the calculated GFR & GFRAA in patients over 70 years has not been determined. Clinical correlation is essential. Serum or plasma urea nitroge n measurement (mass/volume)Ordered By: Carlos Cavazos on 11-24-2022 Urea nitrogen [Mass/Vol] 20 mg/dL 7-18 [facility] Squamous epithelial cells de tection in urine sediment by light microscopyOrdered By: Carlos Cavazos on 11-24-2022 Epithelial cells.squamous LM Ql (Urine sed) 0 SEEN /hpf 0-5 [facility] Thin prep Papanicolaou smear with manual screeningOrdered By: Carlos Cavazos on 11-24-2022 Thin prep Papanicolaou smear with manual screening 10 U/L 15-37 [facility] Thin prep Papanicolaou smear with manual screening 5 5-15 [facility] Urine blood detectionOrdered By: Carlos Cavazos on 11-24-2022 RBC Ql (U) Negative Negative [facility] RBC Ql (U) 0 SEEN /hpf 0-5 [facility] Urine clarityOrdered By: Ted Cavazos on 11-24-2022 Clarity (U) Clear Clear [facility] Urine color determinationOrd ered By: Carlos Cavazos on 11-24-2022 Color (U) Yellow Yellow [facility] Urine glucose detectionOrder ed By: Carlos Cavazos on 11-24-2022 Glucose Ql (U) Normal mg/dl Normal [facility] Urine leukocyte esterase det ection by dipstickOrdered By: Carlos Cavazos on 11-24-2022 Leukocyte esterase Test strip Ql (U) Negative Negative [facility] Urine pHOrdered By: Carlos flores on 11-24-2022 pH (U) 7.0 [pH] 5.0 - 8.0 [facility] Urine sediment bacteria coun t by microscopy (number/high power field)Ordered By: Carlos Cavazos on 11-24-2022 Bacteria LM.HPF (Urine sed) [#/Area] 0 /[HPF] None Seen [facility] Urine specific gravity measu rementOrdered By: Carlos Cavazos on 11-24-2022 Specific gravity (U) [Rel density] 1.010 1.002-1.030 [facility] Urobilinogen Auto test strip Ql (U)Ordered By: Carlos Cavazos on 11-24-2022 Urobilinogen Ql (U) Normal mg/dl Normal [facility] Laboratory - CoagulationOrde red By: Carlos Cavazos on 11-23-2022 INR Coag (Bld) [Relative time] 2.2 {INR} [facility] Comment on above: Critical Value > 4.0 Whole blood prothrombin time Ordered By: Carlos Cavazos on 11-23-2022 PT Coag (Bld) [Time] 24.5 s 11.7-14.9 [facility] Basophil percentageOrdered B y: Carlos Cavazos on 11-22-2022 Chloride [Moles/Vol] 105 mmol/L 98-107 [facility] Glucose [Mass/Vol] 91 mg/dL 74-106 [facility] Potassium [Moles/Vol] 4.1 mmol/L 3.5-5.1 [facility] Sodium [Moles/Vol] 138 mmol/L 136-145 [facility] WBC (Bld) [#/Vol] 12.0 10*3/uL 4.4-11.0 [facility] Blood erythrocytes count (nu mber/volume)Ordered By: Carlos Cavazos on 11-22-2022 RBC (Bld) [#/Vol] 4.65 10*6/uL 4.6-6.2 [facility] Blood hemoglobin measurement (mass/volume)Ordered By: Carlos Cavazos on 11-22-2022 Hemoglobin (Bld) [Mass/Vol] 12.4 g/dL 13.0-16.5 [facility] Blood platelet mean volumeOr dered By: Carlos Cavazos on 11-22-2022 Platelet mean volume (Bld) [Entitic vol] 10.3 fL 6.2-12.0 [facility] Determination of erythrocyte mean corpuscular volume (MCV)Ordered By: Carlos Cavazos on 11-22-2022 MCV (RBC) [Entitic vol] 86.0 fL 80-94 [facility] Hematocrit Auto (Bld) [Volum e fraction]Ordered By: Carlos Cavazos on 11-22-2022 Hematocrit (Bld) [Volume fraction] 40.0 % 40-54 [facility] Laboratory - Chemistry and C hemistry - challengeOrdered By: Carlos Cavazos on 11-22-2022 CO2 [Moles/Vol] 25.0 mmol/L 21.0-32.0 [facility] Urea nitrogen/Creatinine [Mass ratio] 23.6 mg/mg 10-20 [facility] Laboratory - Hematology and Cell countsOrdered By: Carlos Cavazos on 11-22-2022 Erythrocyte distribution width (RBC) [Entitic vol] 50.0 fL 35.1-43.9 [facility] Erythrocyte distribution width (RBC) [Ratio] 15.9 % 11.6-14.6 [facility] MCH (RBC) [Entitic mass] 26.7 pg 27.0-32.0 [facility] MCHC Auto (RBC) [Mass/Vol]Or dered By: Carlos Cavazos on 11-22-2022 MCHC (RBC) [Mass/Vol] 31.0 g/dL 32-36 [facility] No Panel InformationOrdered By: Carlos Cavazos on 11-22-2022 Estimated GFR (MDRD) Amer 115 mL/min >60 [facility] Comment on above: GFR Calc Estimated GFR (MDRD) Non-Af Amer 95 mL/min >60 [facility] Comment on above: Non- GFR Calc Platelets bldOrdered By: Pet er Kenny on 11-22-2022 Platelets (Bld) [#/Vol] 320 10*3/uL 150-450 [facility] Serum or plasma calcium oral urement (mass/volume)Ordered By: Carlos Cavazos on 11-22-2022 Calcium [Mass/Vol] 8.7 mg/dL 8.5-10.1 [facility] Serum or plasma creatinine m easurement (mass/volume)Ordered By: Carlos Cavazos on 11-22-2022 Creatinine [Mass/Vol] 0.85 mg/dL 0.70-1.30 [facility] Comment on above: The validity of the calculated GFR & GFRAA in patients over 70 years has not been determined. Clinical correlation is essential. Serum or plasma urea nitroge n measurement (mass/volume)Ordered By: Carlos Cavazos on 11-22-2022 Urea nitrogen [Mass/Vol] 20 mg/dL 7-18 [facility] Thin prep Papanicolaou smear with manual screeningOrdered By: Carlos Cavazos on 11-22-2022 Thin prep Papanicolaou smear with manual screening 8 5-15 [facility] Laboratory - CoagulationOrde red By: Carlos Cavazos on 11-09-2022 INR Coag (Bld) [Relative time] 2.1 {INR} [facility] Comment on above: Critical Value > 4.0 Whole blood prothrombin time Ordered By: Carlos Cavazos on 11-09-2022 PT Coag (Bld) [Time] 22.6 s 11.7-14.9 [facility] Laboratory - CoagulationOrde red By: Carlos Cavazos on 10-26-2022 INR Coag (Bld) [Relative time] 2.6 {INR} [facility] Comment on above: Critical Value > 4.0 Whole blood prothrombin time Ordered By: Carlos Cavazos on 10-26-2022 PT Coag (Bld) [Time] 28.5 s 11.7-14.9 [facility] Laboratory - CoagulationOrde red By: Carlos Cavazos on 10-12-2022 INR Coag (Bld) [Relative time] 2.4 {INR} [facility] Comment on above: Critical Value > 4.0 Whole blood prothrombin time Ordered By: Carlos Cavazos on 10-12-2022 PT Coag (Bld) [Time] 26.4 s 11.7-14.9 [facility] Laboratory - CoagulationOrde red By: Carlos Cavazos on 10-05-2022 INR Coag (Bld) [Relative time] 2.6 {INR} [facility] Comment on above: Critical Value > 4.0 Whole blood prothrombin time Ordered By: Carlos Cavazos on 10-05-2022 PT Coag (Bld) [Time] 28.0 s 11.7-14.9 [facility] Laboratory - CoagulationOrde red By: Carlos Cavazos on 09-28-2022 INR Coag (Bld) [Relative time] 2.7 {INR} [facility] Comment on above: Critical Value > 4.0 Whole blood prothrombin time Ordered By: Carlos Cavazos on 09-28-2022 PT Coag (Bld) [Time] 28.9 s 11.7-14.9 [facility] Laboratory - CoagulationOrde red By: Carlos Cavazos on 09-14-2022 INR Coag (Bld) [Relative time] 2.5 {INR} [facility] Comment on above: Critical Value > 4.0 Whole blood prothrombin time Ordered By: Carlos Cavazos on 09-14-2022 PT Coag (Bld) [Time] 27.4 s 11.7-14.9 [facility] Laboratory - CoagulationOrde red By: Carlos Cavazos on 08-31-2022 INR Coag (Bld) [Relative time] 2.3 {INR} [facility] Comment on above: Critical Value > 4.0 Whole blood prothrombin time Ordered By: Carlos Cavazos on 08-31-2022 PT Coag (Bld) [Time] 25.4 s 11.7-14.9 [facility] Basophil percentageOrdered B y: Carlos Cavazos on 08-23-2022 Chloride [Moles/Vol] 108 mmol/L 98-107 [facility] Glucose [Mass/Vol] 86 mg/dL 74-106 [facility] Potassium [Moles/Vol] 4.3 mmol/L 3.5-5.1 [facility] Sodium [Moles/Vol] 136 mmol/L 136-145 [facility] WBC (Bld) [#/Vol] 10.0 10*3/uL 4.4-11.0 [facility] Blood erythrocytes count (nu mber/volume)Ordered By: Carlos Cavazos on 08-23-2022 RBC (Bld) [#/Vol] 4.77 10*6/uL 4.6-6.2 [facility] Blood hemoglobin measurement (mass/volume)Ordered By: Carlos Cavazos on 08-23-2022 Hemoglobin (Bld) [Mass/Vol] 12.5 g/dL 13.0-16.5 [facility] Blood platelet mean volumeOr dered By: Carlos Cavazos on 08-23-2022 Platelet mean volume (Bld) [Entitic vol] 11.0 fL 6.2-12.0 [facility] Determination of erythrocyte mean corpuscular volume (MCV)Ordered By: Carlos Cavazos on 08-23-2022 MCV (RBC) [Entitic vol] 84.3 fL 80-94 [facility] Hematocrit Auto (Bld) [Volum e fraction]Ordered By: Carlos Cavazos on 08-23-2022 Hematocrit (Bld) [Volume fraction] 40.2 % 40-54 [facility] Laboratory - Chemistry and C hemistry - challengeOrdered By: Carlos Cavazos on 08-23-2022 CO2 [Moles/Vol] 24.0 mmol/L 21.0-32.0 [facility] Urea nitrogen/Creatinine [Mass ratio] 22.8 mg/mg 10-20 [facility] Laboratory - Hematology and Cell countsOrdered By: Carlos Cavazos on 08-23-2022 Erythrocyte distribution width (RBC) [Entitic vol] 49.3 fL 35.1-43.9 [facility] Erythrocyte distribution width (RBC) [Ratio] 16.0 % 11.6-14.6 [facility] MCH (RBC) [Entitic mass] 26.2 pg 27.0-32.0 [facility] MCHC Auto (RBC) [Mass/Vol]Or dered By: Carlos Cavazos on 08-23-2022 MCHC (RBC) [Mass/Vol] 31.1 g/dL 32-36 [facility] No Panel InformationOrdered By: Carlos Cavazos on 08-23-2022 Estimated GFR (MDRD) Amer 134 mL/min >60 [facility] Comment on above: GFR Calc Estimated GFR (MDRD) Non-Af Amer 110 mL/min >60 [facility] Comment on above: Non- GFR Calc Platelets bldOrdered By: eTd Cavazos on 08-23-2022 Platelets (Bld) [#/Vol] 268 10*3/uL 150-450 [facility] Serum or plasma calcium oral urement (mass/volume)Ordered By: Carlos Cavazos on 08-23-2022 Calcium [Mass/Vol] 9.1 mg/dL 8.5-10.1 [facility] Serum or plasma creatinine m easurement (mass/volume)Ordered By: Carlos Cavazos on 08-23-2022 Creatinine [Mass/Vol] 0.74 mg/dL 0.70-1.30 [facility] Comment on above: The validity of the calculated GFR & GFRAA in patients over 70 years has not been determined. Clinical correlation is essential. Serum or plasma urea nitroge n measurement (mass/volume)Ordered By: Carlos Cavazos on 08-23-2022 Urea nitrogen [Mass/Vol] 17 mg/dL 7-18 [facility] Thin prep Papanicolaou smear with manual screeningOrdered By: Carlos Cavazos on 08-23-2022 Thin prep Papanicolaou smear with manual screening 4 5-15 [facility] Laboratory - CoagulationOrde red By: Carlos Cavazos on 08-17-2022 INR Coag (Bld) [Relative time] 2.8 {INR} [facility] Comment on above: Critical Value > 4.0 Whole blood prothrombin time Ordered By: Carlos Cavazos on 08-17-2022 PT Coag (Bld) [Time] 29.6 s 11.7-14.9 [facility] Laboratory - CoagulationOrde red By: Carlos Cavazos on 08-14-2022 INR Coag (Bld) [Relative time] 3.9 {INR} [facility] Comment on above: Critical Value > 4.0 Whole blood prothrombin time Ordered By: Carlos Cavazos on 08-14-2022 PT Coag (Bld) [Time] 40.6 s 11.7-14.9 [facility] Laboratory - CoagulationOrde red By: Carlos Cavazos on 07-31-2022 INR Coag (Bld) [Relative time] 2.5 {INR} [facility] Comment on above: Critical Value > 4.0 Whole blood prothrombin time Ordered By: Carlos Cavazos on 07-31-2022 PT Coag (Bld) [Time] 26.8 s 11.7-14.9 [facility] INR in Blood by Coagulation assayOrdered By: Carlos Cavazos on 07-24-2022 INR Coag (Bld) [Relative time] 2.3 {INR} [facility] Laboratory - CoagulationOrde red By: Carlos Cavazos on 07-24-2022 PT Coag (PPP) [Time] 24.7 s 11.7-14.9 [facility] Laboratory - CoagulationOrde red By: Carlos Cavazos on 07-20-2022 INR Coag (Bld) [Relative time] 1.9 {INR} [facility] Comment on above: Critical Value > 4.0 Whole blood prothrombin time Ordered By: Carlos Cavazos on 07-20-2022 PT Coag (Bld) [Time] 20.6 s 11.7-14.9 [facility] Laboratory - CoagulationOrde red By: Carlos Cavazos on 07-17-2022 INR Coag (Bld) [Relative time] 1.3 {INR} [facility] Comment on above: Critical Value > 4.0 Whole blood prothrombin time Ordered By: Carlos Cavazos on 07-17-2022 PT Coag (Bld) [Time] 15.9 s 11.7-14.9 [facility] Basophil percentageOrdered B y: Carlos Cavazos on 07-11-2022 Chloride [Moles/Vol] 105 mmol/L 98-107 [facility] Glucose [Mass/Vol] 97 mg/dL 74-106 [facility] Potassium [Moles/Vol] 3.9 mmol/L 3.5-5.1 [facility] Sodium [Moles/Vol] 140 mmol/L 136-145 [facility] WBC (Bld) [#/Vol] 9.4 10*3/uL 4.4-11.0 [facility] Blood erythrocytes count (nu mber/volume)Ordered By: Carlos Cavazos on 07-11-2022 RBC (Bld) [#/Vol] 4.66 10*6/uL 4.6-6.2 [facility] Blood hemoglobin measurement (mass/volume)Ordered By: Carlos Cavazos on 07-11-2022 Hemoglobin (Bld) [Mass/Vol] 12.0 g/dL 13.0-16.5 [facility] Blood platelet mean volumeOr dered By: Carlos Cavazos on 07-11-2022 Platelet mean volume (Bld) [Entitic vol] 10.4 fL 6.2-12.0 [facility] Determination of erythrocyte mean corpuscular volume (MCV)Ordered By: Carlos Cavazos on 07-11-2022 MCV (RBC) [Entitic vol] 83.7 fL 80-94 [facility] Hematocrit Auto (Bld) [Volum e fraction]Ordered By: Carlos Cavazos on 07-11-2022 Hematocrit (Bld) [Volume fraction] 39.0 % 40-54 [facility] Laboratory - Chemistry and C hemistry - challengeOrdered By: Carlos Cavazos on 07-11-2022 CO2 [Moles/Vol] 28.0 mmol/L 21.0-32.0 [facility] Urea nitrogen/Creatinine [Mass ratio] 23.0 mg/mg 10-20 [facility] Laboratory - Hematology and Cell countsOrdered By: Carlos Cavazos on 07-11-2022 Erythrocyte distribution width (RBC) [Entitic vol] 51.0 fL 35.1-43.9 [facility] Erythrocyte distribution width (RBC) [Ratio] 16.8 % 11.6-14.6 [facility] MCH (RBC) [Entitic mass] 25.8 pg 27.0-32.0 [facility] MCHC Auto (RBC) [Mass/Vol]Or dered By: Carlos Cavazos on 07-11-2022 MCHC (RBC) [Mass/Vol] 30.8 g/dL 32-36 [facility] No Panel InformationOrdered By: Carlos Cavazos on 07-11-2022 Estimated GFR (MDRD) Amer 126 mL/min >60 [facility] Comment on above: GFR Calc Estimated GFR (MDRD) Non-Af Amer 104 mL/min >60 [facility] Comment on above: Non- GFR Calc Platelets bldOrdered By: Ted Cavazos on 07-11-2022 Platelets (Bld) [#/Vol] 291 10*3/uL 150-450 [facility] Serum or plasma calcium oral urement (mass/volume)Ordered By: Carlos Cavazos on 07-11-2022 Calcium [Mass/Vol] 9.2 mg/dL 8.5-10.1 [facility] Serum or plasma creatinine m easurement (mass/volume)Ordered By: Carlos Cavazos on 07-11-2022 Creatinine [Mass/Vol] 0.78 mg/dL 0.70-1.30 [facility] Comment on above: The validity of the calculated GFR & GFRAA in patients over 70 years has not been determined. Clinical correlation is essential. Serum or plasma urea nitroge n measurement (mass/volume)Ordered By: Carlos Cavazos on 07-11-2022 Urea nitrogen [Mass/Vol] 18 mg/dL 7-18 [facility] Thin prep Papanicolaou smear with manual screeningOrdered By: Carlos Cavazos on 07-11-2022 Thin prep Papanicolaou smear with manual screening 7 5-15 [facility] Laboratory - CoagulationOrde red By: Carlos Cavazos on 07-10-2022 INR Coag (Bld) [Relative time] 1.8 {INR} [facility] Comment on above: Critical Value > 4.0 Whole blood prothrombin time Ordered By: Carlos Cavazos on 07-10-2022 PT Coag (Bld) [Time] 21.0 s 11.7-14.9 [facility] Laboratory - CoagulationOrde red By: Carlos Cavazos on 07-03-2022 INR Coag (Bld) [Relative time] 1.9 {INR} [facility] Comment on above: Critical Value > 4.0 Whole blood prothrombin time Ordered By: Carlos Cavazos on 07-03-2022 PT Coag (Bld) [Time] 22.7 s 11.7-14.9 [facility] INR in Blood by Coagulation assayOrdered By: Carlos Cavazos on 06-27-2022 INR Coag (Bld) [Relative time] 2.9 {INR} [facility] Laboratory - CoagulationOrde red By: Carlos Cavazos on 06-27-2022 PT Coag (PPP) [Time] 29.9 s 11.7-14.9 [facility] Laboratory - CoagulationOrde red By: Carlos Cavazos on 06-13-2022 INR Coag (Bld) [Relative time] 2.1 {INR} [facility] Comment on above: Critical Value > 4.0 Whole blood prothrombin time Ordered By: Carlos Cavazos on 06-13-2022 PT Coag (Bld) [Time] 24.4 s 11.7-14.9 [facility] Laboratory - CoagulationOrde red By: Carlos Cavazos on 06-06-2022 INR Coag (Bld) [Relative time] 1.5 {INR} [facility] Comment on above: Critical Value > 4.0 Whole blood prothrombin time Ordered By: Carlos Cavazos on 06-06-2022 PT Coag (Bld) [Time] 18.4 s 11.7-14.9 [facility] Basophil percentageOrdered B y: Carlos Cavazos on 05-30-2022 Chloride [Moles/Vol] 105 mmol/L 98-107 [facility] Glucose [Mass/Vol] 95 mg/dL 74-106 [facility] Potassium [Moles/Vol] 3.9 mmol/L 3.5-5.1 [facility] Sodium [Moles/Vol] 140 mmol/L 136-145 [facility] WBC (Bld) [#/Vol] 7.6 10*3/uL 4.4-11.0 [facility] Blood erythrocytes count (nu mber/volume)Ordered By: Carlos Cavazos on 05-30-2022 RBC (Bld) [#/Vol] 4.79 10*6/uL 4.6-6.2 [facility] Blood hemoglobin measurement (mass/volume)Ordered By: Carlos Cavazos on 05-30-2022 Hemoglobin (Bld) [Mass/Vol] 12.1 g/dL 13.0-16.5 [facility] Blood platelet mean volumeOr dered By: Carlos Cavazos on 05-30-2022 Platelet mean volume (Bld) [Entitic vol] 10.4 fL 6.2-12.0 [facility] Determination of erythrocyte mean corpuscular volume (MCV)Ordered By: Carlos Cavazos on 05-30-2022 MCV (RBC) [Entitic vol] 82.5 fL 80-94 [facility] Hematocrit Auto (Bld) [Volum e fraction]Ordered By: Carlos Cavazos on 05-30-2022 Hematocrit (Bld) [Volume fraction] 39.5 % 40-54 [facility] INR in Blood by Coagulation assayOrdered By: Carlos Cavazos on 05-30-2022 INR Coag (Bld) [Relative time] 1.9 {INR} [facility] Laboratory - Chemistry and C hemistry - challengeOrdered By: Carlos Cavazos on 05-30-2022 CO2 [Moles/Vol] 27.0 mmol/L 21.0-32.0 [facility] Urea nitrogen/Creatinine [Mass ratio] 21.4 mg/mg 10-20 [facility] Laboratory - CoagulationOrde red By: Carlos Cavazos on 05-30-2022 PT Coag (PPP) [Time] 21.6 s 11.7-14.9 [facility] Laboratory - Hematology and Cell countsOrdered By: Carlos Cavazos on 05-30-2022 Erythrocyte distribution width (RBC) [Entitic vol] 48.8 fL 35.1-43.9 [facility] Erythrocyte distribution width (RBC) [Ratio] 16.2 % 11.6-14.6 [facility] MCH (RBC) [Entitic mass] 25.3 pg 27.0-[facility].0 [facility] [Mass/Vol]Or dered By: Carlos Cavazos on 05-30-2022 MCHC (RBC) [Mass/Vol] 30.6 g/dL 32-36 [facility] No Panel InformationOrdered By: Carlos Cavazos on 05-30-2022 Estimated GFR (MDRD) Amer 133 mL/min >60 [facility] Comment on above: GFR Calc Estimated GFR (MDRD) Non-Af Amer 110 mL/min >60 [facility] Comment on above: Non- GFR Calc Platelets bldOrdered By: Ted Cavazos on 05-30-2022 Platelets (Bld) [#/Vol] 308 10*3/uL 150-450 [facility] Serum or plasma calcium oral urement (mass/volume)Ordered By: Carlos Cavazos on 05-30-2022 Calcium [Mass/Vol] 9.1 mg/dL 8.5-10.1 [facility] Serum or plasma creatinine m easurement (mass/volume)Ordered By: Carlos Cavazos on 05-30-2022 Creatinine [Mass/Vol] 0.75 mg/dL 0.70-1.30 [facility] Comment on above: The validity of the calculated GFR & GFRAA in patients over 70 years has not been determined. Clinical correlation is essential. Serum or plasma urea nitroge n measurement (mass/volume)Ordered By: Carlos Cavazos on 05-30-2022 Urea nitrogen [Mass/Vol] 16 mg/dL 7-18 [facility] Thin prep Papanicolaou smear with manual screeningOrdered By: Carlos Cavazos on 05-30-2022 Thin prep Papanicolaou smear with manual screening 8 5-15 [facility] Laboratory - CoagulationOrde red By: Carlos Cavazos on 05-16-2022 INR Coag (Bld) [Relative time] 2.6 {INR} [facility] Comment on above: Critical Value > 4.0 Whole blood prothrombin time Ordered By: Carlos Cavazos on 05-16-2022 PT Coag (Bld) [Time] 29.9 s 11.7-14.[address] [facility] Laboratory - CoagulationOrde red By: Carlos Cavazos on 05-02-2022 INR Coag (Bld) [Relative time] 2.0 {INR} [facility] Comment on above: Critical Value > 4.0 Whole blood prothrombin time Ordered By: Carlos Cavazos on 05-02-2022 PT Coag (Bld) [Time] 23.2 s 11.7-14.9 [facility] Laboratory - CoagulationOrde red By: Carlos Cavazos on 04-27-2022 INR Coag (Bld) [Relative time] 2.7 {INR} [facility] Comment on above: Critical Value > 4.0 Whole blood prothrombin time Ordered By: Carlos Cavazos on 04-27-2022 PT Coag (Bld) [Time] 31.1 s 11.7-14.9 [facility] Laboratory - CoagulationOrde red By: Carlos Cavazos on 04-26-2022 INR Coag (Bld) [Relative time] 2.8 {INR} [facility] Comment on above: Critical Value > 4.0 Whole blood prothrombin time Ordered By: Carlos Cavazos on 04-26-2022 PT Coag (Bld) [Time] 32.6 s 11.7-14.9 [facility] Laboratory - CoagulationOrde red By: Carlos Cavazos on 04-11-2022 INR Coag (Bld) [Relative time] 2.9 {INR} [facility] Comment on above: Critical Value > 4.0 Whole blood prothrombin time Ordered By: Carlos Cavazos on 04-11-2022 PT Coag (Bld) [Time] 32.8 s 11.7-14.9 [facility] Laboratory - CoagulationOrde red By: Carlos Cavazos on 03-28-2022 INR Coag (Bld) [Relative time] 2.1 {INR} [facility] Comment on above: Critical Value > 4.0 Whole blood prothrombin time Ordered By: Carlos Cavazos on 03-28-2022 PT Coag (Bld) [Time] 24.8 s 11.7-14.9 [facility] Laboratory - CoagulationOrde red By: Carlos Cavazos on 03-23-2022 INR Coag (Bld) [Relative time] 1.7 {INR} [facility] Comment on above: Critical Value > 4.0 Whole blood prothrombin time Ordered By: Carlos Cavazos on 03-23-2022 PT Coag (Bld) [Time] 20.9 s 11.7-14.9 [facility] Laboratory - CoagulationOrde red By: Carlos Cavazos on 03-16-2022 INR Coag (Bld) [Relative time] 1.7 {INR} [facility] Comment on above: Critical Value > 4.0 Whole blood prothrombin time Ordered By: Carlos Cavazos on 03-16-2022 PT Coag (Bld) [Time] 19.9 s 11.7-14.9 [facility] Laboratory - CoagulationOrde red By: Carlos Cavazos on 03-09-2022 INR Coag (Bld) [Relative time] 1.8 {INR} [facility] Comment on above: Critical Value > 4.0 Whole blood prothrombin time Ordered By: Carlos Cavazos on 03-09-2022 PT Coag (Bld) [Time] 21.9 s 11.7-14.9 [facility] Laboratory - CoagulationOrde red By: Carlos Cavazos on 03-06-2022 INR Coag (Bld) [Relative time] 1.7 {INR} [facility] Comment on above: Critical Value > 4.0 Whole blood prothrombin time Ordered By: Carlos Cavazos on 03-06-2022 PT Coag (Bld) [Time] 20.0 s 11.7-14.9 [facility] CBC with Auto Differentialon 03-02-2022 Absolute [...] 10*3/uL [facility] Test Performed by [facility], [address] [place] [address] HEAD WO CONTRASTon 2021 Patient Name: ANDREW SIFUENTES Computed Tomography ACCESSION EXAM DATE/TIME PROCEDURE ORDERING PROVIDER [id number] 03/02/2022 13:[address] Head or Brain w/o [id number] -LANETTE MUNGUIA Contrast CPT code 14697 Reason For Exam (CT Head or Brain [...] tubes (parent active on the left for DATA MINING ANALYST shunting and disconnected on the right). 2. No definite evidence of acute infarction (MRI more sensitive), mass lesion, nor hemorrhage. Report Dictated on --- Final --- Dictated: 03/02/2022 1:35 pm Dictating Physician: MD GUTIERREZ WILLIAM Signed Date and Time: 03/02/2022 1:39 pm Signed by: MD GUTIERREZ WILLIAM Transcribed Date and Time: 03/02/2022 1:35 [facility] Anant Gutierrez MD - 03/02/2022 Patient Name: ANDREW [facility]IF[facility]ENTES [facility] [id number] Computed Tomography ACCESSION EXAM DATE/TIME PROCEDURE ORDERING PROVIDER [id number] 03/02/2022 13:[address] Head or Brain w/o [id number] -EZRA LANETTE Contrast CPT code 10548 Reason For Exam (CT Head or Brain [...] tubes (parent active on the left for DATA MINING ANALYST shunting and disconnected on the right). 2. [...] Tomography ACCESSION EXAM DATE/TIME PROCEDURE ORDERING PROVIDER [id number] 03/02/2022 13:[address] Head or Brain w/o [id number] -LANETTE MUNGUIA Contrast CPT code 00847 Reason For Exam (CT Head or Brain [...] tubes (parent active on the left for DATA MINING ANALYST shunting and disconnected on the right). 2. No definite evidence of acute infarction (MRI more sensitive), mass lesion, nor hemorrhage. Report Dictated on Final Dictated: 03/02/2022 1:35 pm Dictating Physician: MD GUTIERREZ WILLIAM Signed Date and Time: 03/02/2022 1:39 pm Signed by: MD GUTIERREZ WILLIAM Transcribed Date and Time: 03/02/2022 1:35 Normal [facility] Comp Metabolic Panelon 03-02 Calcium [Mass/Vol] 9.1 mg/dL Normal 8.4-10.4 [facility] Comment on above: Performed By: #### H TIERA PT, CMP3 ####[address] [place], [place] ALP [Catalytic activity/Vol] 128 U/L High 38-126 [facility] Comment on above: Performed By: #### H TIERA PT, CMP3 ####[address] [place], [place] ALT [Catalytic activity/Vol] 12 U/L Normal 0-49 [facility] Comment on above: Result Comment: The ALT test is performed by an updated assay method. Please note that the reference intervals have been changed and are now sex specific. Performed By: #### H EMDF PT, CMP3 ####[address] [place], [place] Anion gap [Moles/Vol] 7 mmol/L Normal 3-13 [facility] Comment on above: Performed By: #### H EMDF PT, CMP3 ####[address] [place], [place] AST [Catalytic activity/Vol] 24 U/L Normal 15-46 [facility] Comment on above: Performed By: #### H CHRISTEL MOTT, CMP3 ####[address] [place], [place] Bilirubin [Mass/Vol] 0.4 mg/dL Normal 0.2-1.3 [facility] Comment on above: Performed By: #### H CHRISTEL MOTT, CMP3 ####[address] [place], [place] CO2 [Moles/Vol] 27 mmol/L Normal 22-30 [facility] Comment on above: Performed By: #### H CHRISTEL MOTT CMP3 ####[address] [place], [place] Glucose [Mass/Vol] 109 mg/dL High 70-100 [facility] Comment on above: Performed By: #### H CHRISTEL MOTT, CMP3 ####[address] [place], [place] Protein [Mass/Vol] 8.1 g/dL Normal 6.3-8.2 [facility] Comment on above: Performed By: #### H CHRISTEL MOTT, CMP3 ####[address] [address] [place], [place] Urea nitrogen [Mass/Vol] 22 mg/dL High 7-17 [facility] Comment on above: Performed By: #### H CHRISTEL MOTT, CMP3 ####[address] [place], [place] Creatinine [Mass/Vol] 0.63 mg/dL Normal 0.52-1.25 [facility] Comment on above: Performed By: #### H CHRISTEL MOTT, CMP3 ####[address] [place], [place] eGFR OTHER > 90.0 Normal >60 [facility] Comment on above: Result Comment: KDIG [...] Performed By: #### H CHRISTEL MOTT CMP3 ####[address] [place] [address] GFR/1.73 sq M.predicted among blacks MDRD (S/P/Bld) [Vol rate/Area] mL/min/{1.73_m2} Normal >60 [facility] Comment on above: Performed By: #### H CHRISTEL MOTT CMP3 ####[address] [address] Albumin [Mass/Vol] 4.1 g/dL Normal 3.5-5.0 [facility] Comment on above: Performed By: #### H CHRISTEL MOTT CMP3 ####[address] [address] Chloride [Moles/Vol] 106 mmol/L Normal 98-107 [facility] Comment on above: Performed By: #### H CHRISTEL MOTT CMP3 ####[address] [address] Potassium [Moles/Vol] 3.7 mmol/L Normal 3.5-5.1 [facility] Comment on above: Performed By: #### H CHRISTEL MOTT CMP3 ####[address] [place] [address] Sodium [Moles/Vol] 140 mmol/L Normal 135-145 [facility] Comment on above: Performed By: #### H EMDF, PT, CMP3 ####[facility] [place] [address] Comprehensive Met[facility] 03-02-2022 Albumin [Mass/Vol] 4.1 g/dL 3.5 [...] mg/dL [facility] Test Performed by [facility], [address] [place] [address] [facility] LAB [facility] ED Provider Noteon 2 ED Provider Note [facility] EM[facility]ENCY DEPT EMERGENCY DEPARTMENT ENCOUNTER Pt Name: Andrew Sifuentes Birthdate 1950 Date of evaluation: 03/02/2022 Provider: Lanette Munguia DO CHIEF COMPLAINT Chief Complaint Patient presents with Fall Patient had unwitnessed fall at [facility] landed on butt. Is on thinners, denies LOC, denies head injury has no complaints at this time HISTORY OF PRESENT ILLNESS (Location/Symptom, Timing/Onset, Context/Setting, Quality, Duration, Modifying Factors, Severity) Note limiting factors. I wore a N-95 mask for the entirety of this encounter. Andrew Sifuentes is a 71 y.o. male medical history of hydrocephalus status post DATA MINING ANALYST shunt, history of DVT on Coumadin who [facility] following mechanical fall. 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 Normal [facility] Hemogram w/ Autodiffon 03-02 Abs Baso Cnt 0.2 10*3/uL Normal 0.0-0.2 [facility] Comment on above: Performed By: #### H EMDF PT, CMP3 ####[facility] [place] [address] Abs Neutrophile Cnt 10.7 10*3/uL High 1.8-7.0 [facility] Comment on above: Performed By: #### H EMDF, PT, CMP3 ####[facility] [place] [address] Basophils/100 WBC (Bld) 1.1 % Normal 0.0-2.0 [facility] Comment on above: Performed By: #### H EMDF, PT, CMP3 ####[facility] [place] [address] Eosinophils (Bld) [#/Vol] 0.1 10*3/uL Normal 0.0-0.5 [facility] Comment on above: Performed By: #### H EMDHeydi PT, CMP3 ####[address] [address] Eosinophils/100 WBC (Bld) 0.5 % Low 1.0-6.0 [facility] Comment on above: Performed By: #### H EMDF PT, CMP3 ####[address] [address] Granulocytes/100 WBC (Bld) 73.9 % Normal 40.0-80.0 [facility] Comment on above: Performed By: #### H TIERA PT, CMP3 ####[address] [address] Lymphocytes (Bld) [#/Vol] 3.0 10*3/uL Normal 1.0-4.3 [facility] Comment on above: Performed By: #### H TIERA PT, CMP3 ####[address] [address] Lymphocytes/100 WBC (Bld) 20.6 % Normal 20.0-40.0 [facility] Comment on above: Performed By: #### H EMDHeydi PT, CMP3 ####[address] [address] Monocytes (Bld) [#/Vol] 0.6 10*3/uL Normal 0.0-0.8 [facility] Comment on above: Performed By: #### H EMDF PT, CMP3 ####[address] [address] Monocytes/100 WBC (Bld) 3.9 % Normal 2.0-10.0 [facility] Comment on above: Performed By: #### H EMDF PT, CMP3 ####[address] [address] Platelet mean volume (Bld) [Entitic vol] 8.5 fL Normal 7.4-12.4 [facility] Comment on above: Result Comment: MPV is a calculated measurement using platelet volume ratio. Performed By: #### H EMDHeydi PT, CMP3 ####[address] Platelets (Bld) [#/Vol] 411 10*3/uL Normal 140-440 [facility] Comment on above: Performed By: #### H EMDHeydi PT, CMP3 ####[address] [place], [place] Erythrocyte distribution width (RBC) [Ratio] 17.0 % High 11.5-14.5 [facility] Comment on above: Performed By: #### H TIERA PT, CMP3 ####[address] Hematocrit (Bld) [Volume fraction] 37.4 % Low 40.0-52.0 [facility] Comment on above: Performed By: #### H TIERA PT, CMP3 ####[address] Hemoglobin (Bld) [Mass/Vol] 12.1 g/dL Low 13.0-18.0 [facility] Comment on above: Performed By: #### H TIERA PT, CMP3 ####[address] [place], [place] MCH (RBC) [Entitic mass] 26.2 pg Normal 26.0-34.0 [facility] Comment on above: Performed By: #### H EMDHeydi PT, CMP3 ####[address] [place], [place] MCHC 32.3 % Normal 32.0-36.0 [facility] Comment on above: Performed By: #### H TIERA PT, CMP3 ####[address] MCV (RBC) [Entitic vol] 81.1 fL Normal 80.0-98.0 [facility] Comment on above: Performed By: #### H EMDHeydi PT, CMP3 ####[address] RBC (Bld) [#/Vol] 4.61 10*6/uL Normal 4.40-5.90 [facility] Comment on above: Performed By: #### H BIMALF PT, CMP3 ####[address] [place], [place] WBC (Bld) [#/Vol] 14.5 10*3/uL High 3.6-10.7 [facility] Comment on above: Performed By: #### H BIMALF PT, CMP3 ####[address] [place], [place] Prothrombin Timeon INR 1.9 High 0.9-1.1 [facility] Comment on above: Result Comment: Harry [...] Performed By: #### H TIERA PT, CMP3 ####[address] PT Coag (PPP) [Time] 18.9 s High 9.0-12.0 [facility] Comment on above: Result Comment: . Performed By: #### H TIERA PT, CMP3 ####[address] [place], [place] Protime-INRon 03-02-2022 INR Coag (Bld) [Relative [...] High 9.0 - 12.0 s [facility] Comment on above: . Test Performed by [facility], [address] [place] [id number] [place] [address] LAB [facility] Laboratory - CoagulationOrde red By: Carlos Cavazos on 02-20-2022 INR Coag (Bld) [Relative time] 2.6 {INR} [facility] Comment on above: Critical Value > 4.0 Whole blood prothrombin time Ordered By: Carlos Cavazos on 02-20-2022 PT Coag (Bld) [Time] 30.1 s 11.7-14.9 [facility] Laboratory - CoagulationOrde red By: Carlos Cavazos on 02-13-2022 INR Coag (Bld) [Relative time] 2.3 {INR} [facility] Comment on above: Critical Value > 4.0 Whole blood prothrombin time Ordered By: Carlos Cavazos on 02-13-2022 PT Coag (Bld) [Time] 26.7 s 11.7-14.9 [facility] Laboratory - CoagulationOrde red By: Carlos Cavazos on 02-06-2022 INR Coag (Bld) [Relative time] 2.3 {INR} [facility] Comment on above: Critical Value > 4.0 Whole blood prothrombin time Ordered By: Carlos Cavazos on 02-06-2022 PT Coag (Bld) [Time] 26.6 s 11.7-14.9 [facility] Laboratory - Coagulationon 0 01-30-2022 INR Coag (Bld) [Relative time] 1.7 {INR} [facility] Work Phone: Comment on above: Critical Value > 4.0 Whole blood prothrombin time on 01-30-2022 PT Coag (Bld) [Time] 20.1 s 11.7-14.9 [facility] Work Phone: Laboratory - Coagulationon 0 01-26-2022 INR Coag (Bld) [Relative time] 1.8 {INR} [facility] Work Phone: Comment on above: Critical Value > 4.0 Whole blood prothrombin time on 01-26-2022 PT Coag (Bld) [Time] 21.8 s 11.7-14.9 [facility] Work Phone: Laboratory - Coagulationon 0 01-19-2022 INR Coag (Bld) [Relative time] 2.2 {INR} [facility] Work Phone: Comment on above: Critical Value > 4.0 Whole blood prothrombin time on 01-19-2022 PT Coag (Bld) [Time] 25.7 s 11.7-14.9 [facility] Work Phone: INR in Blood by Coagulation assayon 01-10-2022 INR Coag (Bld) [Relative time] 1.8 {INR} [facility] Work Phone: Laboratory - Coagulationon 0 01-10-2022 PT Coag (PPP) [Time] 20.9 s 11.7-14.9 [facility] Work Phone: Basophil percentageon 2021 Chloride [Moles/Vol] 107 mmol/L 98-107 [facility] Work Phone: Glucose [Mass/Vol] 82 mg/dL 74-106 [facility] Work Phone: Potassium [Moles/Vol] 3.4 mmol/L 3.5-5.1 [facility] Work Phone: Sodium [Moles/Vol] 143 mmol/L 136-145 [facility] Work Phone: WBC (Bld) [#/Vol] 10.4 10*3/uL 4.4-11.0 [facility] Work Phone: Blood erythrocytes count (nu mber/volume)on 01-05-2022 RBC (Bld) [#/Vol] 4.27 10*6/uL 4.6-6.2 [facility] Work Phone: Blood hemoglobin measurement (mass/volume)on 01-05-2022 Hemoglobin (Bld) [Mass/Vol] 11.2 g/dL 13.0-16.5 [facility] Work Phone: Blood platelet mean volumeon 01-05-2022 Platelet mean volume (Bld) [Entitic vol] 10.3 fL 6.2-12.0 [facility] Work Phone: Determination of erythrocyte mean corpuscular volume (MCV)on 01-05-2022 MCV (RBC) [Entitic vol] 84.8 fL 80-94 [facility] Work Phone: Hematocrit Auto (Bld) [Volum e fraction]on 01-05-2022 Hematocrit (Bld) [Volume fraction] 36.2 % 40-54 [facility] Work Phone: Laboratory - Chemistry and C hemistry - challengeon 01-05-2022 CO2 [Moles/Vol] 28.0 mmol/L 21.0-32.0 [facility] Work Phone: Urea nitrogen/Creatinine [Mass ratio] 20.0 mg/mg 10-20 [facility] Work Phone: Laboratory - Hematology and Cell countson 01-05-2022 Erythrocyte distribution width (RBC) [Entitic vol] 51.8 fL 35.1-43.9 [facility] Work Phone: Erythrocyte distribution width (RBC) [Ratio] 16.8 % 11.6-14.6 [facility] Work Phone: MCH (RBC) [Entitic mass] 26.2 pg 27.0-32.0 [facility] Work Phone: MCHC Auto (RBC) [Mass/Vol]on 01-05-2022 MCHC (RBC) [Mass/Vol] 30.9 g/dL 32-36 [facility] Work Phone: No Panel Informationon 01-05 Estimated GFR (MDRD) Amer 133 mL/min >60 [facility] Work Phone: Comment on above: GFR Calc Estimated GFR (MDRD) Non-Af Amer 110 mL/min >60 [facility] Work Phone: Comment on above: Non- GFR Calc Platelets bldon 01-05-2022 Platelets (Bld) [#/Vol] 373 10*3/uL 150-450 [facility] Work Phone: Serum or plasma calcium oral urement (mass/volume)on 01-05-2022 Calcium [Mass/Vol] 8.8 mg/dL 8.5-10.1 [facility] Work Phone: Serum or plasma creatinine m easurement (mass/volume)on 01-05-2022 Creatinine [Mass/Vol] 0.75 mg/dL 0.70-1.30 [facility] Work Phone: Comment on above: The validity of the calculated GFR & GFRAA in patients over 70 years has not been determined. Clinical correlation is essential. Serum or plasma urea nitroge n measurement (mass/volume)on 01-05-2022 Urea nitrogen [Mass/Vol] 15 mg/dL 7-18 [facility] Work Phone: Thin prep Papanicolaou smear with manual screeningon 01-05-2022 Thin prep Papanicolaou smear with manual screening 8 5-15 [facility] Work Phone: Laboratory - Coagulationon 0 12-30-2021 INR Coag (Bld) [Relative time] 2.0 {INR} [facility] Work Phone: Comment on above: Critical Value > 4.0 Whole blood prothrombin time on 12-30-2021 PT Coag (Bld) [Time] 23.7 s 11.7-14.9 [facility] Work Phone: Basophil percentageon 2021 Chloride [Moles/Vol] 106 mmol/L 98-107 [facility] Work Phone: Glucose [Mass/Vol] 91 mg/dL 74-106 [facility] Work Phone: Potassium [Moles/Vol] 3.4 mmol/L 3.5-5.1 [facility] [facility] Work Phone: Sodium [Moles/Vol] 141 mmol/L 136-145 [facility] r [facility] Work Phone: WBC (Bld) [#/Vol] 10.2 10*3/uL 4.4-11.0 [facility] Work Phone: Blood erythrocytes count (nu mber/volume)on 12-28-2021 RBC (Bld) [#/Vol] 4.22 10*6/uL 4.6-6.2 [facility] Work Phone: Blood hemoglobin measurement (mass/volume)on 12-28-2021 Hemoglobin (Bld) [Mass/Vol] 11.2 g/dL 13.0-16.5 [facility] Work Phone: Blood platelet mean volumeon 12-28-2021 Platelet mean volume (Bld) [Entitic vol] 10.1 fL 6.2-12.0 [facility] Work Phone: Determination of erythrocyte mean corpuscular volume (MCV)on 12-28-2021 MCV (RBC) [Entitic vol] 82.7 fL 80-94 [facility] Work Phone: Hematocrit Auto (Bld) [Volum e fraction]on 12-28-2021 Hematocrit (Bld) [Volume fraction] 34.9 % 40-54 [facility] Work Phone: Laboratory - Chemistry and C hemistry - challengeon 12-28-2021 CO2 [Moles/Vol] 30.0 mmol/L 21.0-32.0 [facility] Work Phone: Urea nitrogen/Creatinine [Mass ratio] 33.7 mg/mg 10-20 [facility] Work Phone: Laboratory - Hematology and Cell countson 12-28-2021 Erythrocyte distribution width (RBC) [Entitic vol] 49.1 fL 35.1-43.9 [facility] Work Phone: Erythrocyte distribution width (RBC) [Ratio] 16.5 % 11.6-14.6 [facility] Work Phone: MCH (RBC) [Entitic mass] 26.5 pg 27.0-32.0 [facility] Work Phone: MCHC Auto (RBC) [Mass/Vol]on 12-28-2021 MCHC (RBC) [Mass/Vol] 32.1 g/dL 32-36 [facility] Work Phone: No Panel Informationon 12-28 Estimated GFR (MDRD) Amer 174 mL/min >60 [facility] Work Phone: Comment on above: GFR Calc Estimated GFR (MDRD) Non-Af Amer 143 mL/min >60 [facility] Work Phone: Comment on above: Non- GFR Calc Platelets bldon 12-28-2021 Platelets (Bld) [#/Vol] 339 10*3/uL 150-450 [facility] Work Phone: Serum or plasma calcium roal urement (mass/volume)on 12-28-2021 Calcium [Mass/Vol] 8.6 mg/dL 8.5-10.1 [facility] Work Phone: Serum or plasma creatinine m easurement (mass/volume)on 12-28-2021 Creatinine [Mass/Vol] 0.59 mg/dL 0.70-1.30 [facility] Work Phone: Comment on above: The validity of the calculated GFR & GFRAA in patients over 70 years has not been determined. Clinical correlation is essential. Serum or plasma urea nitroge n measurement (mass/volume)on 12-28-2021 Urea nitrogen [Mass/Vol] 20 mg/dL 7-18 [facility] Work Phone: Thin prep Papanicolaou smear with manual screeningon 12-28-2021 Thin prep Papanicolaou smear with manual screening 5 5-15 [facility] Work Phone: CULTURE BLOODon 12-27-2021 Microscopic examination of blood, culture CULTURE BLOOD --> Status: F No growth at 5 days. Normal [facility] Comment on above: Performed By: #### C /BLD #### [facility] [email or web address] [facility] [address] [place] [address] Laboratory - Coagulationon 0 12-26-2021 INR Coag (Bld) [Relative time] 1.7 {INR} [facility] Work Phone: Comment on above: Critical Value > 4.0 Whole blood prothrombin time on 12-26-2021 PT Coag (Bld) [Time] 20.8 s 11.7-14.9 [facility] Work Phone: Basic Metabolic Panelon 12-05 Calcium [Mass/Vol] 8.8 mg/dL Normal 8.4-10.4 [facility] Comment on above: Performed By: #### C RP2, ESR, HEMDF, BMP3 ####[facility] [address] [place], [place] Anion gap [Moles/Vol] 6 mmol/L Normal 3-13 [facility] Comment on above: Performed By: #### C RP2, ESR, HEMDF, BMP3 ####[address] [place], [place] CO2 [Moles/Vol] 27 mmol/L Normal 22-30 [facility] Comment on above: Performed By: #### C RP2, ESR, HEMDF, BMP3 ####[facility] [address] [place] Glucose [Mass/Vol] 100 mg/dL Normal 70-100 [facility] Comment on above: Performed By: #### C RP2, ESR, HEMDF, BMP3 ####[address] [place], [place] Urea nitrogen [Mass/Vol] 18 mg/dL High 7-17 [facility] Comment on above: Performed By: #### C RP2, ESR, HEMDF, BMP3 ####[address] [place] [address] Creatinine [Mass/Vol] 0.73 mg/dL Normal 0.52-1.25 [facility] Comment on above: Performed By: #### C RP2, ESR, HEMDF, BMP3 ####[facility] [email or web address] [place], [place] eGFR OTHER > 90.0 Normal >60 [facility] Comment on above: Result Comment: KDIG [...] By: #### C RP2, ESR, HEMDF, BMP3 ####[facility] [address] [place], [place] GFR/1.73 sq M.predicted among blacks MDRD (S/P/Bld) [Vol rate/Area] mL/min/{1.73_m2} Normal >60 [facility] Comment on above: Performed By: #### C RP2, ESR, HEMDF, BMP3 ####[facility] [address] [place], [place] Potassium [Moles/Vol] 3.7 mmol/L Normal 3.5-5.1 [facility] Comment on above: Performed By: #### C RP2, ESR, HEMDF, BMP3 ####[facility] [email or web address] [id number] [place], [place] Chloride [Moles/Vol] 106 mmol/L Normal 98-107 [facility] Comment on above: Performed By: #### C RP2, ESR, HEMDF, BMP3 ####[facility] [place] [address] Sodium [Moles/Vol] 139 mmol/L Normal 135-145 [facility] Comment on above: Performed By: #### C RP2, ESR, HEMDF, BMP3 ####[facility] [place] [address] Anion gap [Moles/Vol] 6 mmol/L 3 - [...] NonAfrican Montenegrin mL/min 60 - PINF mL/min [facility] Comment on above: KDIGO guidelines pro [...] 2021 Basophil percentage 25-50 SEEN /hpf 0-5 [facility] Work Phone: Chloride [Moles/Vol] 106 mmol/L 98-[address] [facility] Work Phone: Glucose [Mass/Vol] 93 mg/dL 74-106 [facility] r [facility] Work Phone: [phone] Potassium [Moles/Vol] 3.5 mmol/L 3.5-5.1 [address] [facility] Work Phone: Sodium [Moles/Vol] 140 mmol/L 136-145 [facility] r [facility] Work Phone: WBC (Bld) [#/Vol] 9.6 10*3/uL 4.4-11.0 [facility] Work [facility]: Bilirubin Test strip Ql (U)o n 12-22-2021 Bilirubin Ql (U) Negative Negative [facility] Work Phone: Blood erythrocytes count (nu mber/volume)on 12-22-2021 RBC (Bld) [#/Vol] 4.34 10*6/uL 4.6-6.2 [facility] Work Phone: Blood hemoglobin measurement (mass/volume)on 12-22-2021 Hemoglobin (Bld) [Mass/Vol] 11.5 g/dL 13.0-16.5 [facility] Work Phone: Blood platelet mean volumeon 12-22-2021 Platelet mean volume (Bld) [Entitic vol] 10.8 fL 6.2-12.0 [facility] Work Phone: C-Reactive Proteinon 022 CRP [Mass/Vol] 27.2 mg/L High 0.0-9.9 [employer] Comment on above: Result Comment: . Performed By: #### C RP2, ESR, HEMDF, BMP3 ####[place] [id number] [place] [address] CRP [Mass/Vol] 27.2 mg/L High 0 - 9.9 mg/L [employer] Comment on above: . CBC with Auto [...] 10*3/uL [facility] Test Performed by [facility], [address] [place] [id number] [facility] COVID-19, Flu A/B, and RSV C omboon 12-22-2021 Influenza A by PCR Not detected [facility] Influenza B by PCR Not detected [facility] A RSV PCR Not Detected. Expected Result: Not Detected _ Method: Real-time, RT-PCR This assay was developed by [employer] and distributed under an Emergency Use Authorization (EUA) granted by the FDA for the qualitative detection of nucleic acids from SARS-CoV-2, Influenza A, Influenza B, and Respiratory Syncytial Virus. Provider and patient fact sheets can be found at https://www.fda.gov/media /810944/download and https://www.fda.gov/media /593710/download. [facility] SARS-CoV-2 (COVID-19) RNA MEGAN+probe Ql (Unsp spec) Not detected [facility] Test Performed by [address] [address] [facility] CR Foot Complete 3+ Views [place] f[place] 12-22-2021 CR Foot Complete 3+ Views Left Patient Name: ANDREW SIFUENTES Diagnostic Radiology ACCESSION EXAM DATE/TIME PROCEDURE ORDERING PROVIDER [id number] 12/22/2021 00:09 EDT CR Foot Complete 3+ SANDY HIDALGO, TRAVIS Views Left CPT code 91730 Reason For Exam (CR Foot Complete 3+ [...] Transcribed Date and Time: 12/22/2021 0:21 Normal [facility] Calcium oxalate crystals det ection in urine sediment by light microscopyon 12-22-2021 Calcium oxalate crystals LM Ql (Urine sed) 1+ /hpf [facility] Work Phone: Determination of erythrocyte mean corpuscular volume (MCV)on 12-22-2021 MCV (RBC) [Entitic vol] 84.3 fL 80-94 [facility] Work Phone: ED Provider Noteon 2 ED [...] 79.4 kg (175 lb), SpO2 96 %. [id number] in no acute distress. Alert and oriented [...] [employer] Sharon Olivia MD 12/22/21 0305 [facility] ED Provider Note [facility] EMERGENCY DEPT EMERGENCY DEPARTMENT ENCOUNTER Pt Name: Andrew Sifuentes Birthdate 1950 Date of evaluation: 12/21/2021 Provider: SANIA Lou CHIEF COMPLAINT Chief Complaint Patient presents with Osteomyelitis Patient from [facility], facility did xrays on left lower leg and and have concerns for possible osteomyelitis A&Ox2 to self and place, stated year 2022 preside Miss martini HISTORY OF PRESENT ILLNESS (Location/Symptom, Timing/Onset, Context/Setting, Quality,Duration, Modifying Factors, Severity) Note limiting factors. 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 Tenderness: (more content not included)... Normal [facility] [employer] Hematocrit Auto (Bld) [Volum e fraction]on 12-22-2021 Hematocrit (Bld) [Volume fraction] 36.6 % 40-54 [facility] Work Phone: Hemogram w/ Autodiffon 12-22 Abs Baso Cnt 0.1 10*3/uL Normal 0.0-0.2 [facility] [employer] Comment on above: Performed By: #### C RP2, ESR, HEMDF, BMP3 ####[place] [id number] [place] [address] Abs Neutrophile Cnt 5.9 10*3/uL Normal 1.8-7.0 [facility] Comment on above: Performed By: #### C RP2, ESR, HEMDF, BMP3 ####[address] [address] Basophils/100 WBC (Bld) 0.7 % Normal 0.0-2.0 [facility] Comment on above: Performed By: #### C RP2, ESR, HEMDF, BMP3 ####[address] [address] Eosinophils (Bld) [#/Vol] 0.2 10*3/uL Normal 0.0-0.5 [facility] Comment on above: Performed By: #### C RP2, ESR, HEMDF, BMP3 ####[address] [address] Eosinophils/100 WBC (Bld) 2.3 % Normal 1.0-6.0 [facility] Comment on above: Performed By: #### C RP2, ESR, HEMDF, BMP3 ####[address] Erythrocyte distribution width (RBC) [Ratio] 17.5 % High 11.5-14.5 [facility] Comment on above: Performed By: #### C RP2, ESR, HEMDF, BMP3 ####[address] [address] Granulocytes/100 WBC (Bld) 57.8 % Normal 40.0-80.0 [facility] Comment on above: Performed By: #### C RP2, ESR, HEMDF, BMP3 ####[address] [address] Hematocrit (Bld) [Volume fraction] 33.3 % Low 40.0-52.0 [facility] Comment on above: Performed By: #### C RP2, ESR, HEMDF, BMP3 ####[address] [address] Hemoglobin (Bld) [Mass/Vol] 11.0 g/dL Low 13.0-18.0 [facility] Comment on above: Performed By: #### C RP2, ESR, HEMDF, BMP3 ####[address] Lymphocytes (Bld) [#/Vol] 3.3 10*3/uL Normal 1.0-4.3 [facility] Comment on above: Performed By: #### C RP2, ESR, HEMDF, BMP3 ####[address] Lymphocytes/100 WBC (Bld) 33.0 % Normal 20.0-40.0 [facility] Comment on above: Performed By: #### C RP2, ESR, HEMDF, BMP3 ####[address] MCH (RBC) [Entitic mass] 26.5 pg Normal 26.0-34.0 [facility] Comment on above: Performed By: #### C RP2, ESR, HEMDF, BMP3 ####[address] MCHC 33.1 % Normal 32.0-36.0 [facility] Comment on above: Performed By: #### C RP2, ESR, HEMDF, BMP3 ####[address] MCV (RBC) [Entitic vol] 80.2 fL Normal 80.0-98.0 [facility] Comment on above: Performed By: #### C RP2, ESR, HEMDF, BMP3 ####[address] Monocytes (Bld) [#/Vol] 0.6 10*3/uL Normal 0.0-0.8 [facility] Comment on above: Performed By: #### C RP2, ESR, HEMDF, BMP3 ####[address] Monocytes/100 WBC (Bld) 6.2 % Normal 2.0-10.0 [facility] Comment on above: Performed By: #### C RP2, ESR, HEMDF, BMP3 ####[facility] [employer] [place], [place] Platelet mean volume (Bld) [Entitic vol] 8.0 fL Normal 7.4-12.4 [facility] Comment on above: Result Comment: MPV is a calculated measurement using platelet volume ratio. Performed By: #### C RP2, ESR, HEMDF, BMP3 ####[facility] [email or web address] [id number] [place], [place] Platelets (Bld) [#/Vol] 368 10*3/uL Normal 140-440 [facility] Comment on above: Performed By: #### C RP2, ESR, HEMDF, BMP3 ####[facility] [email or web address] [id number] [place], [place] RBC (Bld) [#/Vol] 4.15 10*6/uL Low 4.40-5.90 [facility] Comment on above: Performed By: #### C RP2, ESR, HEMDF, BMP3 ####[facility] [email or web address] [id number] [place], [place] WBC (Bld) [#/Vol] 10.1 10*3/uL Normal 3.6-10.7 [facility] Comment on above: Performed By: #### C RP2, ESR, HEMDF, BMP3 ####[facility] [email or web address] [id number] [place], [place] Ketones Test strip Ql (U)on 12-22-2021 Ketones Ql (U) Negative Negative [facility] Work Phone: Laboratory - Chemistry and C hemistry - challengeon 12-22-2021 CO2 [Moles/Vol] 27.0 mmol/L 21.0-32.0 [facility] Work Phone: Urea nitrogen/Creatinine [Mass ratio] 22.5 mg/mg 10-20 [facility] Work Phone: Laboratory - Hematology and Cell countson 12-22-2021 Erythrocyte distribution width (RBC) [Entitic vol] 49.1 fL 35.1-43.9 [facility] Work Phone: Erythrocyte distribution width (RBC) [Ratio] 16.1 % 11.6-14.6 [facility] Work Phone: MCH (RBC) [Entitic mass] 26.5 pg 27.0-32.0 [facility] Work Phone: MCHC Auto (RBC) [Mass/Vol]on 12-22-2021 MCHC (RBC) [Mass/Vol] 31.4 g/dL 32-36 [facility] Work Phone: Mucus LM Ql (Urine sed)on Mucus Ql (Urine sed) 0 SEEN /hpf [facility] Work Phone: Nitrite Test strip Ql (U)on 12-22-2021 Nitrite Ql (U) Positive Negative [facility] Work Phone: No Panel Informationon 12-22 Estimated GFR (MDRD) Amer 152 mL/min >60 [facility] Work Phone: Comment on above: GFR Calc Estimated GFR (MDRD) Non-Af Amer 125 mL/min >60 [facility] Work Phone: Comment on above: Non- GFR Calc Interpretation and review of laboratory results Abnormal [facility] Test Performed by [facility], [address] [place] [id number] [place] [address] [facility] Platelets bldon 12-22-2021 Platelets (Bld) [#/Vol] 317 10*3/uL 150-450 [facility] Work Phone: Protein Test strip Ql (U)on 12-22-2021 Protein Ql (U) 30 mg/dl Negative [facility] Work Phone: SARS-CoV-2, Flu A/B and RSVo n 12-22-2021 SARS-CoV-2 (COVID-19) RNA MEGAN+probe Ql (Unsp spec) SARS-CoV-2 --> Status: F Not Detected. Flu A PCR --> Status: F Not Detected. Flu B PCR --> Status: F Not Detected. RSV PCR --> Status: F Not Detected. Expected Result: Not Detected _ Method: Real-time, RT-PCR This assay was developed by [employer] and distributed under an Emergency Use Authorization (EUA) granted by the FDA for the qualitative detection of nucleic acids from SARS-CoV-2, Influenza A, Influenza B, and Respiratory Syncytial Virus. Provider and patient fact sheets can be found at https://www.fda.gov/media /650607/download and https://www.fda.gov/media /780176/download. Expected Result: Not Detected _ Method: Real-time, RT-PCR This assay was developed by [employer] and distributed under an Emergency Use Authorization (EUA) granted by the FDA for the qualitative detection of nucleic acids from SARS-CoV-2, Influenza A, Influenza B, and Respiratory Syncytial Virus. Provider and patient fact sheets can be found at https://www.fda.gov/media /660219/download and https://www.fda.gov/media /326682/download. Normal [facility] Comment on above: Performed By: #### C VFLR ####[facility] [place] [address], [address] Sed Rateon 12-22-2021 Sed Rate 48 mm/h High 0-10 [facility] Comment on above: Performed By: #### C RP2, ESR, HEMDF, BMP3 ####[address] [place] [address] Sedimentation Rateon 022 Interpretation and review of laboratory results Abnormal [facility] Sed Rate 48 mm/h High 0 - 10 mm/h [facility] Test Performed by [facility], [address] [place] [address] [facility] Serum or plasma calcium oral urement (mass/volume)on 12-22-2021 Calcium [Mass/Vol] 8.6 mg/dL 8.5-10.1 [facility] Work Phone: Serum or plasma creatinine m easurement (mass/volume)on 12-22-2021 Creatinine [Mass/Vol] 0.67 mg/dL 0.70-1.30 [facility] Work Phone: Comment on above: The validity of the calculated GFR & GFRAA in patients over 70 years has not been determined. Clinical correlation is essential. Serum or plasma urea nitroge n measurement (mass/volume)on 12-22-2021 Urea nitrogen [Mass/Vol] 15 mg/dL -18 [facility] Work Phone: Squamous epithelial cells de tection in urine sediment by light microscopyon 12-22-2021 Epithelial cells.squamous LM Ql (Urine sed) 0-5 SEEN /hpf 0-5 [facility] Work Phone: Thin prep Papanicolaou smear with manual screeningon 12-22-2021 Thin prep Papanicolaou smear with manual screening 7 5-15 [facility] Work Phone: Urine blood detectionon 12-05 RBC Ql (U) 150 /ul Negative [facility] Work Phone: RBC Ql (U) 10-25 SEEN /hpf 0-5 [facility] Work Phone: Urine clarityon 12-22-2021 Clarity (U) Sl. Cloudy Clear [facility] Work Phone: Urine color determinationon 12-22-2021 Color (U) Yellow Yellow [facility] Work Phone: Urine glucose detectionon Glucose Ql (U) Normal mg/dl Normal [facility] Work Phone: Urine leukocyte esterase det ection by dipstickon 12-22-2021 Leukocyte esterase Test strip Ql (U) 500 /ul Negative [facility] Work Phone: Urine pHon 12-22-2021 pH (U) 6.0 [pH] 5.0 - 8.0 [facility] Work Phone: Urine sediment bacteria coun t by microscopy (number/high power field)on 12-22-2021 Bacteria LM.HPF (Urine sed) [#/Area] 2 /[HPF] None Seen [facility] Work Phone: Urine specific gravity measu rementon 12-22-2021 Specific gravity (U) [Rel density] 1.020 1.002-1.030 [facility] Work Phone: Urobilinogen Auto test strip Ql (U)on 12-22-2021 Urobilinogen Ql (U) Normal mg/dl Normal [facility] Work Phone: XR FOOT LEFT (MIN 3 VIEWS)on 12-22-2021 Patient Name: ANDREW SIFUENTES Diagnostic Radiology ACCESSION EXAM DATE/TIME PROCEDURE ORDERING PROVIDER [id number] 12/22/2021 00:09 EDT CR Foot Complete 3+ SANDY HIDALGO, TRAVIS Views Left CPT code 97767 Reason For Exam (CR Foot Complete 3+ [...] JEFFREY Transcribed Date and Time: 12/22/2021 0:21 [facility] Albert Solano MD - 12/22/2021 Patient Name: ANDREW SIFUENTES Diagnostic Radiology ACCESSION EXAM DATE/TIME PROCEDURE ORDERING PROVIDER [id number] 12/22/2021 00:09 EDT CR Foot Complete 3+ SANDY HIDALGO, TRAVIS Views Left CPT code 99579 Reason For Exam (CR Foot Complete 3+ [...] Date and Time: 12/22/2021 0:21 [facility] Work Phone: Radiology Study observation (narrative) [facility] Work Phone: XR FOOT LEFT (MIN 3 VIEWS)Or dered By: Albert Solano on 12-22-2021 [facility] Work Phone: Basophil percentageon 2021 Chloride [Moles/Vol] 103 mmol/L 98-[address] [facility] [facility] Work Phone: Glucose [Mass/Vol] 92 mg/dL 74-106 [facility] [facility] Work Phone: Potassium [Moles/Vol] 3.5 mmol/L 3.5-5.1 [address] [facility] Work Phone: Sodium [Moles/Vol] 138 mmol/L 136-145 [facility] Work Phone: WBC (Bld) [#/Vol] 11.2 10*3/uL 4.4-11.0 [facility] Work Phone: Blood erythrocytes count (nu mber/volume)on 12-19-2021 RBC (Bld) [#/Vol] 4.50 10*6/uL 4.6-6.2 [facility] Work Phone: Blood hemoglobin measurement (mass/volume)on 12-19-2021 Hemoglobin (Bld) [Mass/Vol] 12.2 g/dL 13.0-16.5 [facility] Work Phone: Blood platelet mean volumeon 12-19-2021 Platelet mean volume (Bld) [Entitic vol] 11.3 fL 6.2-12.0 [facility] Work Phone: Determination of erythrocyte mean corpuscular volume (MCV)on 12-19-2021 MCV (RBC) [Entitic vol] 85.6 fL 80-94 [facility] Work Phone: Hematocrit Auto (Bld) [Volum e fraction]on 12-19-2021 Hematocrit (Bld) [Volume fraction] 38.5 % 40-54 [facility] Work Phone: Laboratory - Chemistry and C hemistry - challengeon 12-19-2021 CO2 [Moles/Vol] 30.0 mmol/L 21.0-32.0 [facility] Work Phone: Urea nitrogen/Creatinine [Mass ratio] 27.1 mg/mg 10-20 [facility] Work Phone: Laboratory - Hematology and Cell countson 12-19-2021 Erythrocyte distribution width (RBC) [Entitic vol] 50.5 fL 35.1-43.9 [facility] Work Phone: Erythrocyte distribution width (RBC) [Ratio] 16.0 % 11.6-14.6 [facility] Work Phone: MCH (RBC) [Entitic mass] 27.1 pg 27.0-32.0 [facility] Work Phone: MCHC Auto (RBC) [Mass/Vol]on 12-19-2021 MCHC (RBC) [Mass/Vol] 31.7 g/dL 32-36 [facility] Work Phone: No Panel Informationon 12-19 Estimated GFR (MDRD) Amer 153 mL/min >60 [facility] Work Phone: Comment on above: GFR Calc Estimated GFR (MDRD) Non-Af Amer 126 mL/min >60 [facility] Work Phone: Comment on above: Non- GFR Calc Platelets bldon 12-19-2021 Platelets (Bld) [#/Vol] 363 10*3/uL 150-450 [facility] Work Phone: Serum or plasma calcium oral urement (mass/volume)on 12-19-2021 Calcium [Mass/Vol] 9.5 mg/dL 8.5-10.1 [facility] Work Phone: Serum or plasma creatinine m easurement (mass/volume)on 12-19-2021 Creatinine [Mass/Vol] 0.66 mg/dL 0.70-1.30 [facility] Work Phone: Comment on above: The validity of the calculated GFR & GFRAA in patients over 70 years has not been determined. Clinical correlation is essential. Serum or plasma urea nitroge n measurement (mass/volume)on 12-19-2021 Urea nitrogen [Mass/Vol] 18 mg/dL 7-18 [facility] Work Phone: Thin prep Papanicolaou smear with manual screeningon 12-19-2021 Thin prep Papanicolaou smear with manual screening 5 5-15 [facility] Work Phone: Laboratory - Coagulationon 0 12-12-2021 INR Coag (Bld) [Relative time] 2.0 {INR} [facility] Work Phone: Comment on above: Critical Value > 4.0 Whole blood prothrombin time on 12-12-2021 PT Coag (Bld) [Time] 23.9 s 11.7-14.9 [facility] Work Phone: ANES POSTPROC EVALon 022 ANES POSTPROC EVAL Normal [facility] Laboratory - Coagulationon 0 12-08-2021 INR Coag (Bld) [Relative time] 1.8 {INR} [facility] Work Phone: Comment on above: Critical Value > 4.0 Whole blood prothrombin time on 12-08-2021 PT Coag (Bld) [Time] 21.0 s 11.7-14.9 [facility] Work Phone: Absolute lymphocyte counton 12-05-2021 Lymphocytes Auto (Unsp spec) [#/Vol] 2.97 10*3/uL 0.83-4.51 [facility] Work Phone: Basophil percentageon 2021 Basophils/100 WBC (Bld) 0.6 % 0-1 [facility] Work Phone: Chloride [Moles/Vol] 106 mmol/L 98-107 [facility] Work Phone: Eosinophils/100 WBC (Bld) 2.3 % 0-5 [facility] Work Phone: Glucose [Mass/Vol] 107 mg/dL 74-106 [facility] Work Phone: Comment on above: Fasting Glucose resu lt from 100 to 125 mg/dL suggests IMPAIRED HOMEOSTASIS per A.D.A. criteria. Neutrophils (Bld) [#/Vol] 5.6 10*3/uL 2.0-7.7 [facility] Work Phone: [phone] Neutrophils/100 WBC (Bld) 60.2 % 47-70 [facility] Work Phone: Potassium [Moles/Vol] 3.4 mmol/L 3.5-5.1 [facility] Work Phone: Sodium [Moles/Vol] 139 mmol/L 136-145 [facility] Work Phone: [phone] WBC (Bld) [#/Vol] 9.3 10*3/uL 4.4-11.0 [facility] Work Phone: Blood erythrocytes count (nu mber/volume)on 12-05-2021 RBC (Bld) [#/Vol] 4.49 10*6/uL 4.6-6.2 [facility] Work Phone: Blood hemoglobin measurement (mass/volume)on 12-05-2021 Hemoglobin (Bld) [Mass/Vol] 12.1 g/dL 13.0-16.5 [facility] Work Phone: Blood lymphocytes/100 leukoc yteson 12-05-2021 Lymphocytes/100 WBC (Bld) 32.0 % 19-41 [facility] Work Phone: Blood monocytes/100 leukocyt eson 12-05-2021 Monocytes/100 WBC (Bld) 4.7 % 0-10 [facility] Work Phone: Blood platelet mean volumeon 12-05-2021 Platelet mean volume (Bld) [Entitic vol] 10.8 fL 6.2-12.0 [facility] Work Phone: Determination of erythrocyte mean corpuscular volume (MCV)on 12-05-2021 MCV (RBC) [Entitic vol] 84.9 fL 80-94 [facility] Work Phone: Hematocrit Auto (Bld) [Volum e fraction]on 12-05-2021 Hematocrit (Bld) [Volume fraction] 38.1 % 40-54 [facility] Work Phone: INR in Blood by Coagulation assayon 12-05-2021 INR Coag (Bld) [Relative time] 1.8 {INR} [facility] Work Phone: Laboratory - Chemistry and C hemistry - challengeon 12-05-2021 CO2 [Moles/Vol] 29.0 mmol/L 21.0-32.0 [facility] Work Phone: Urea nitrogen/Creatinine [Mass ratio] 25.4 mg/mg 10-20 [facility] Work Phone: Laboratory - Coagulationon 0 12-05-2021 PT Coag (PPP) [Time] 20.5 s 11.7-14.9 [facility] Work Phone: Laboratory - Hematology and Cell countson 12-05-2021 Erythrocyte distribution width (RBC) [Entitic vol] 48.5 fL 35.1-43.9 [facility] Work Phone: Erythrocyte distribution width (RBC) [Ratio] 15.7 % 11.6-14.6 [facility] Work Phone: Immature granulocytes/100 WBC (Bld) 0.200 % 0.0-0.9 [facility] Work Phone: Comment on above: IG% - Immature Granu locytes (promyelocytes, myelocytes and metamyelocytes) > 1% indicates that a LEFT SHIFT is Present. MCH (RBC) [Entitic mass] 26.9 pg 27.0-32.0 [facility] Work Phone: Nucleated RBC/100 WBC (Bld) [Ratio] 0 % 0-5 [facility] Work Phone: MCHC Auto (RBC) [Mass/Vol]on 12-05-2021 MCHC (RBC) [Mass/Vol] 31.8 g/dL 32-36 [facility] Work Phone: No Panel Informationon 12-05 Estimated GFR (MDRD) Amer 133 mL/min >60 [facility] Work Phone: Comment on above: GFR Calc Estimated GFR (MDRD) Non-Af Amer 110 mL/min >60 [facility] Work Phone: Comment on above: Non- GFR Calc Platelets bldon 12-05-2021 Platelets (Bld) [#/Vol] 363 10*3/uL 150-450 [facility] Work Phone: Serum or plasma calcium oral urement (mass/volume)on 12-05-2021 Calcium [Mass/Vol] 9.4 mg/dL 8.5-10.1 [facility] Work Phone: Serum or plasma creatinine m easurement (mass/volume)on 12-05-2021 Creatinine [Mass/Vol] 0.75 mg/dL 0.70-1.30 [facility] Work Phone: Comment on above: The validity of the calculated GFR & GFRAA in patients over 70 years has not been determined. Clinical correlation is essential. Serum or plasma urea nitroge n measurement (mass/volume)on 12-05-2021 Urea nitrogen [Mass/Vol] 19 mg/dL 7-18 [facility] Work Phone: Thin prep Papanicolaou smear with manual screeningon 12-05-2021 Thin prep Papanicolaou smear with manual screening 4 5-15 [facility] Work Phone: Basophil percentageon 2021 Basophil percentage 0 SEEN /hpf 0-5 [facility] Work Phone: Chloride [Moles/Vol] 104 mmol/L 98-107 [facility] Work Phone: Glucose [Mass/Vol] 90 mg/dL 74-106 [facility] Work Phone: Potassium [Moles/Vol] 3.7 mmol/L 3.5-5.1 [facility] Work Phone: Comment on above: Slight Hemolysis, Re sult may be falsely increased. Sodium [Moles/Vol] 138 mmol/L 136-145 [facility] Work Phone: WBC (Bld) [#/Vol] 10.7 10*3/uL 4.4-11.0 [facility] Work Phone: Bilirubin Test strip Ql (U)o n 12-01-2021 Bilirubin Ql (U) Negative Negative [facility] Work Phone: Blood erythrocytes count (nu mber/volume)on 12-01-2021 RBC (Bld) [#/Vol] 4.33 10*6/uL 4.6-6.2 [facility] Work Phone: Blood hemoglobin measurement (mass/volume)on 12-01-2021 Hemoglobin (Bld) [Mass/Vol] 11.6 g/dL 13.0-16.5 [facility] Work Phone: Blood platelet mean volumeon 12-01-2021 Platelet mean volume (Bld) [Entitic vol] 11.2 fL 6.2-12.0 [facility] Work Phone: Determination of erythrocyte mean corpuscular volume (MCV)on 12-01-2021 MCV (RBC) [Entitic vol] 85.2 fL 80-94 [facility] Work Phone: Hematocrit Auto (Bld) [Volum e fraction]on 12-01-2021 Hematocrit (Bld) [Volume fraction] 36.9 % 40-54 [facility] Work Phone: Ketones Test strip Ql (U)on 12-01-2021 Ketones Ql (U) Negative Negative [facility] Work Phone: Laboratory - Chemistry and C hemistry - challengeon 12-01-2021 CO2 [Moles/Vol] 27.0 mmol/L 21.0-32.0 [facility] Work Phone: Urea nitrogen/Creatinine [Mass ratio] 24.0 mg/mg 10-20 [facility] Work Phone: Laboratory - Coagulationon 0 12-01-2021 INR Coag (Bld) [Relative time] 1.6 {INR} [facility] Work Phone: Comment on above: Critical Value > 4.0 Laboratory - Hematology and Cell countson 12-01-2021 Erythrocyte distribution width (RBC) [Entitic vol] 47.9 fL 35.1-43.9 [facility] Work Phone: Erythrocyte distribution width (RBC) [Ratio] 15.5 % 11.6-14.6 [facility] Work Phone: MCH (RBC) [Entitic mass] 26.8 pg 27.0-32.0 [facility] Work Phone: MCHC Auto (RBC) [Mass/Vol]on 12-01-2021 MCHC (RBC) [Mass/Vol] 31.4 g/dL 32-36 [facility] Work Phone: Mucus LM Ql (Urine sed)on Mucus Ql (Urine sed) 0 SEEN /hpf [facility] Work Phone: Nitrite Test strip Ql (U)on 12-01-2021 Nitrite Ql (U) Negative Negative [facility] Work Phone: No Panel Informationon 12-01 Estimated GFR (MDRD) Amer 133 mL/min >60 [facility] Work Phone: Comment on above: GFR Calc Estimated GFR (MDRD) Non-Af Amer 110 mL/min >60 [facility] Work Phone: Comment on above: Non- GFR Calc Platelets bldon 12-01-2021 Platelets (Bld) [#/Vol] 336 10*3/uL 150-450 [facility] Work Phone: Protein Test strip Ql (U)on 12-01-2021 Protein Ql (U) 30 mg/dl Negative [facility] Work Phone: Serum or plasma calcium oral urement (mass/volume)on 12-01-2021 Calcium [Mass/Vol] 9.4 mg/dL 8.5-10.1 [facility] Work Phone: Serum or plasma creatinine m easurement (mass/volume)on 12-01-2021 Creatinine [Mass/Vol] 0.75 mg/dL 0.70-1.30 [facility] Work Phone: Comment on above: The validity of the calculated GFR & GFRAA in patients over 70 years has not been determined. Clinical correlation is essential. Serum or plasma urea nitroge n measurement (mass/volume)on 12-01-2021 Urea nitrogen [Mass/Vol] 18 mg/dL 7-18 [facility] Work Phone: Squamous epithelial cells de tection in urine sediment by light microscopyon 12-01-2021 Epithelial cells.squamous LM Ql (Urine sed) 0-5 SEEN /hpf 0-5 [facility] Work Phone: Thin prep Papanicolaou smear with manual screeningon 12-01-2021 Thin prep Papanicolaou smear with manual screening 7 5-15 [facility] Work Phone: Urine blood detectionon 11-05 RBC Ql (U) Negative Negative [facility] Work Phone: RBC Ql (U) 0 SEEN /hpf 0-5 [facility] Work Phone: Urine clarityon 12-01-2021 Clarity (U) Clear Clear [facility] Work Phone: Urine color determinationon 12-01-2021 Color (U) Yellow Yellow [facility] Work Phone: Urine glucose detectionon Glucose Ql (U) 50 mg/dl Normal [facility] Work Phone: Urine leukocyte esterase det ection by dipstickon 12-01-2021 Leukocyte esterase Test strip Ql (U) Negative Negative [facility] Work Phone: Urine pHon 12-01-2021 pH (U) 6.0 [pH] 5.0 - 8.0 [facility] Work Phone: Urine sediment bacteria coun t by microscopy (number/high power field)on 12-01-2021 Bacteria LM.HPF (Urine sed) [#/Area] 0 /[HPF] None Seen [facility] Work Phone: Urine sediment yeast count b y microscopy (number/high powered field)on 12-01-2021 Yeast LM.HPF (Urine sed) [#/Area] 2 /[HPF] None Seen [facility] Work Phone: Urine specific gravity measu rementon 12-01-2021 Specific gravity (U) [Rel density] 1.010 1.002-1.030 [facility] Work Phone: Urobilinogen Auto test strip Ql (U)on 12-01-2021 Urobilinogen Ql (U) Normal mg/dl Normal [facility] Work Phone: Whole blood prothrombin time on 12-01-2021 PT Coag (Bld) [Time] 19.8 s 11.7-14.9 [facility] Work Phone: Laboratory - Coagulationon 0 11-28-2021 INR Coag (Bld) [Relative time] 1.6 {INR} [facility] Work Phone: Comment on above: Critical Value > 4.0 Whole blood prothrombin time on 11-28-2021 PT Coag (Bld) [Time] 18.8 s 11.7-14.9 [facility] Work Phone: INR in Blood by Coagulation assayon 11-23-2021 INR Coag (Bld) [Relative time] 2.7 {INR} [facility] Work Phone: Laboratory - Coagulationon 0 11-23-2021 PT Coag (PPP) [Time] 28.0 s 11.7-14.9 [facility] Work Phone: Laboratory - Coagulationon 0 11-22-2021 INR Coag (Bld) [Relative time] 3.8 {INR} [facility] Work Phone: Comment on above: Critical Value > 4.0 Whole blood prothrombin time on 11-22-2021 PT Coag (Bld) [Time] 42.8 s 11.7-14.9 [facility] Work Phone: INR in Blood by Coagulation assayon 11-21-2021 INR Coag (Bld) [Relative time] 3.9 {INR} [facility] Work Phone: Laboratory - Coagulationon 0 11-21-2021 PT Coag (PPP) [Time] 37.7 s 11.7-14.9 [facility] Work Phone: Whole blood prothrombin time on 11-21-2021 PT Coag (Bld) [Time] 45.5 s 11.7-14.9 [facility] Work Phone: INR in Blood by Coagulation assayon 11-14-2021 INR Coag (Bld) [Relative time] 3.1 {INR} [facility] Work Phone: Laboratory - Coagulationon 0 11-14-2021 PT Coag (PPP) [Time] 31.4 s 11.7-14.9 [facility] Work Phone: Laboratory - Coagulationon 0 11-08-2021 INR Coag (Bld) [Relative time] 2.5 {INR} [facility] Work Phone: Comment on above: Critical Value > 4.0 Whole blood prothrombin time on 11-08-2021 PT Coag (Bld) [Time] 29.0 s 11.7-14.9 [facility] Work Phone: Basophil percentageon 2021 Chloride [Moles/Vol] 106 mmol/L 98-107 [facility] Work Phone: Glucose [Mass/Vol] 100 mg/dL 74-106 [facility] Work Phone: Comment on above: Fasting Glucose resu lt from 100 to 125 mg/dL suggests IMPAIRED HOMEOSTASIS per A.D.A. criteria. Potassium [Moles/Vol] 3.7 mmol/L 3.5-5.1 [facility] Work Phone: Sodium [Moles/Vol] 140 mmol/L 136-145 [facility] Work Phone: WBC (Bld) [#/Vol] 8.8 10*3/uL 4.4-11.0 [facility] Work Phone: Blood erythrocytes count (nu mber/volume)on 11-04-2021 RBC (Bld) [#/Vol] 4.05 10*6/uL 4.6-6.2 [facility] Work Phone: Blood hemoglobin measurement (mass/volume)on 11-04-2021 Hemoglobin (Bld) [Mass/Vol] 11.1 g/dL 13.0-16.5 [facility] Work Phone: Blood platelet mean volumeon 11-04-2021 Platelet mean volume (Bld) [Entitic vol] 10.8 fL 6.2-12.0 [facility] Work Phone: Determination of erythrocyte mean corpuscular volume (MCV)on 11-04-2021 MCV (RBC) [Entitic vol] 86.9 fL 80-94 [facility] Work Phone: Hematocrit Auto (Bld) [Volum e fraction]on 11-04-2021 Hematocrit (Bld) [Volume fraction] 35.2 % 40-54 [facility] Work Phone: INR in Blood by Coagulation assayon 11-04-2021 INR Coag (Bld) [Relative time] 1.8 {INR} [facility] Work Phone: Laboratory - Chemistry and C hemistry - challengeon 11-04-2021 CO2 [Moles/Vol] 26.0 mmol/L 21.0-32.0 [facility] Work Phone: Urea nitrogen/Creatinine [Mass ratio] 18.3 mg/mg 10-20 [facility] Work Phone: Laboratory - Coagulationon 0 11-04-2021 PT Coag (PPP) [Time] 20.4 s 11.7-14.9 [facility] Work Phone: Laboratory - Hematology and Cell countson 11-04-2021 Erythrocyte distribution width (RBC) [Entitic vol] 48.1 fL 35.1-43.9 [facility] Work Phone: Erythrocyte distribution width (RBC) [Ratio] 15.0 % 11.6-14.6 [facility] Work Phone: MCH (RBC) [Entitic mass] 27.4 pg 27.0-32.0 [facility] Work Phone: MCHC Auto (RBC) [Mass/Vol]on 11-04-2021 MCHC (RBC) [Mass/Vol] 31.5 g/dL 32-36 [facility] Work Phone: No Panel Informationon 11-04 D-Dimer Quantitative (PE/DVT) 0.56 FEU/ug/m 0.27-0.49 [facility] Work Phone: Comment on above: D-Dimer ELEVATED (>0 .49): Additional studies and clinicalassessments are indicated to conclude diagnosis of:Deep Vein Thrombosis (DVT) or Pulmonary Embolism (PE) Estimated GFR (MDRD) Amer 155 mL/min >60 [facility] Work Phone: Comment on above: GFR Calc Estimated GFR (MDRD) Non-Af Amer 128 mL/min >60 [facility] Work Phone: Comment on above: Non- GFR Calc Troponin I High Sensitivity 11 pg/mL 3.0-78.0 [facility] Work Phone: Comment on above: Please Note: New Fadumo t Units and Gender Specific Reference Ranges. For more information see Policy Stat Procedure [place] High Sensitivity Troponin (TNIH) and attachments. Platelets bldon 11-04-2021 Platelets (Bld) [#/Vol] 364 10*3/uL 150-450 [facility] Work Phone: Serum or plasma C reactive p rotein measurement (mass/volume)on 11-04-2021 CRP [Mass/Vol] 31.90 mg/L 0.0-3.0 [facility] Work Phone: Comment on above: C-Reactive Protein ( CRP) provides useful information for thediagnosis, therapy and monitoring of inflammatory processesand associated diseases. For the evaluation of Relative Riskfor Cardiovascular Disease, a High Sensitivity CRP (HSCRP)should be ordered. Serum or plasma calcium oral urement (mass/volume)on 11-04-2021 Calcium [Mass/Vol] 9.1 mg/dL 8.5-10.1 [facility] Work Phone: Serum or plasma creatinine m easurement (mass/volume)on 11-04-2021 Creatinine [Mass/Vol] 0.66 mg/dL 0.70-1.30 [facility] Work Phone: Comment on above: The validity of the calculated GFR & GFRAA in patients over 70 years has not been determined. Clinical correlation is essential. Serum or plasma urea nitroge n measurement (mass/volume)on 11-04-2021 Urea nitrogen [Mass/Vol] 12 mg/dL 7-18 [facility] Work Phone: Thin prep Papanicolaou smear with manual screeningon 11-04-2021 Thin prep Papanicolaou smear with manual screening 8 5-15 [facility] Work Phone: Complete Urinalysison 2021 Appearance (U) Clear Normal Clear [facility] [employer] Comment on above: Result Comment: . Performed By: #### C UA2 ####[address] [place], [place] Bacteria Moderate Abnormal Negative [facility] [employer] Comment on above: Result Comment: . Performed By: #### C UA2 ####[facility] [email or web address] [address] [place], [place] Bilirubin,Urine Negative Normal Negative [facility] [employer] Comment on above: Result Comment: . Performed By: #### C UA2 ####[address] [place], [place] Cast, Hyaline Negative Normal Negative [facility] [employer] Comment on above: Result Comment: . Performed By: #### C UA2 ####[address] [place], [place] Color (U) Yellow Normal Lt. Yellow [facility] [employer] Comment on above: Result Comment: . Performed By: #### C UA2 ####[address] [place], [place] Glucose Ql (U) Normal Normal Normal (<70) [facility] [employer] Comment on above: Result Comment: . Performed By: #### C UA2 ####[address] [place], [place] Ketone,Urine Negative Normal Negative [facility] [employer] Comment on above: Result Comment: . Performed By: #### C UA2 ####[facility] [address] [place], [place] Leukocytes,Urine Negative Normal Negative [facility] Comment on above: Result Comment: . Performed By: #### C UA2 ####[place] [address] [place], [place] Mucous Threads Few Normal Negative [facility] Comment on above: Result Comment: . Performed By: #### C UA2 ####[address] [place], [place] Nitrites,Urine Negative Normal Negative [facility] Comment on above: Result Comment: . Performed By: #### C UA2 ####[place] [address] [address] [address] [place], [place] Occult Blood,Urine 0.1 mg/dL Abnormal Negative [facility] Comment on above: Result Comment: . Performed By: #### C UA2 ####[address] [place], [place] pH,Urine 5.5 Normal 5.0-8.0 [facility] Comment on above: Result Comment: . Performed By: #### C UA2 ####[address] [place], [place] Protein (U) [Mass/Vol] 10 mg/dL Abnormal Negative [facility] Comment on above: Result Comment: . Performed By: #### C UA2 ####[address] [place], [place] RBC, Urine 26 - 50 Abnormal 0-2 [facility] Comment on above: Result Comment: . Performed By: #### C UA2 ####[address] [place], [place] Specific [place],Urine 1.023 Normal 1.005 - 1.030 [facility] Comment on above: Result Comment: . Performed By: #### C UA2 ####[address] [place], [place] Squamous Epithelial Negative Normal 3-5 [facility] Comment on above: Result Comment: . Performed By: #### C UA2 ####[address] [place], [place] Urobilinogen,Urine Normal Normal Normal (0-1) [facility] Comment on above: Result Comment: . Performed By: #### C UA2 ####[facility] [place] [address] WBC, Urine 0 - 2 Normal 0-5 [facility] Comment on above: Result Comment: . Performed By: #### C UA2 ####[facility] [place] [address] Urinalysison 11-01-2021 Appearance (U) Clear Clear NA [...] [Mass/Vol] 10 mg/dL Abnormal Negative [facility] Comment on above: . RBC, UA 26-50 Abnormal 0 - 2 /[HPF] [facility] Comment on above: . Specific [place], Urine 1.023 [facility] Comment on above: . Squam Epithel, UA Negative 3 - 5 /[HPF] [facility] Comment on above: . Urobilinogen, Urine Normal Normal ( 0-1) mg/dL [facility] Comment on above: . WBC, UA 0-2 0 - 5 /[HPF] [facility] Comment on above: . Test Performed by [facility], [address] [place] [address] [facility] Basic Metabolic Panelon 10-06 Anion gap [Moles/Vol] 6 mmol/L Normal 3-13 [facility] Comment on above: Performed By: #### P T/AP, TROPN, BMP3, HEMDF #### [facility] [address] [place], [place] Calcium [Mass/Vol] 9.1 mg/dL Normal 8.4-10.4 [facility] Comment on above: Performed By: #### P T/AP, TROPN, BMP3, HEMDF #### [facility] [address] [place], [place] CO2 [Moles/Vol] 28 mmol/L Normal 22-30 [facility] Comment on above: Performed By: #### P T/AP, TROPN, BMP3, HEMDF #### [place] [address] [address] [place], [place] Glucose [Mass/Vol] 120 mg/dL High 70-100 [facility] Comment on above: Performed By: #### P T/AP, TROPN, BMP3, HEMDF #### [place] [address] [place], [place] Urea nitrogen [Mass/Vol] 17 mg/dL Normal 7-17 [facility] Comment on above: Performed By: #### P T/AP, TROPN, BMP3, HEMDF #### [place] [place], [place] Creatinine [Mass/Vol] 0.65 mg/dL Normal 0.52-1.25 [facility] Comment on above: Performed By: #### P T/AP, TROPN, BMP3, HEMDF #### [place] [address] [place], [place] eGFR OTHER > 90.0 Normal >60 [facility] Comment on above: Result Comment: KDIG [...] P T/AP, TROPN, BMP3, HEMDF #### [address] GFR/1.73 sq M.predicted among blacks MDRD (S/P/Bld) [Vol rate/Area] mL/min/{1.73_m2} Normal >60 [facility] Comment on above: Performed By: #### P T/AP, TROPN, BMP3, HEMDF #### [address] Potassium [Moles/Vol] 3.8 mmol/L Normal 3.5-5.1 [facility] Comment on above: Performed By: #### P T/AP, TROPN, BMP3, HEMDF #### [address] Chloride [Moles/Vol] 101 mmol/L Normal 98-107 [facility] Comment on above: Performed By: #### P T/AP, TROPN, BMP3, HEMDF #### [address] Sodium [Moles/Vol] 134 mmol/L Low 135-145 [facility] Comment on above: Performed By: #### P T/AP, TROPN, BMP3, HEMDF #### [address] Anion gap [Moles/Vol] 6 mmol/L 3 - 13 mmol/L [facility] Calcium [Mass/Vol] 9.1 mg/dL 8.4 - 10. 4 mg/dL [facility] Chloride [Moles/Vol] 101 mmol/L 98 - 10 7 mmol/L [facility] CO2 [Moles/Vol] 28 mmol/L 22 - 30 mmol/L [facility] Creatinine [Mass/Vol] 0.65 mg/dL 0.52 - 1.25 mg/dL [facility] EGFR IF NonAfrican Montenegrin >90.0 >60 mL/min [facility] Comment on above: [...] - 17 mg/dL [facility] Test Performed by [id number] [place] [address] [facility] CBC with Auto Differentialon 10-31-2021 [...] 10*3/uL [facility] Test Performed by [facility], [address] [place] [id number] [place] [address] [facility] CR Abdomen APon 10-31-2021 CR Abdomen AP Patient Name: ANDREW SIFUENTES Diagnostic Radiology ACCESSION EXAM DATE/TIME PROCEDURE ORDERING PROVIDER [id number] 10/31/2021 20:36 EDT CR Abdomen AP [id number] MARTÍNEZ CPT code 17145 Reason For Exam (CR Abdomen AP) second vp hr assessment shunt, 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 CHEST PORTABLE [...] Transcribed Date and Time: 10/31/2021 8:49 Normal [facility] CR Chest Portableon 11-01-19 22 CR Chest Portable [id number] Diagnostic Radiology ACCESSION EXAM DATE/TIME PROCEDURE ORDERING PROVIDER [id number] 10/31/2021 20:36 EDT CR Chest Portable [id number] MYRON GALINDO CPT code 41649 Reason For Exam (CR Chest Portable) AMS [...] Transcribed Date and Time: 10/31/2021 8:49 [address] [facility] CT HEAD WO CONTRASTon 2021 Patient Name: [facility] [id number] Computed Tomography ACCESSION EXAM DATE/TIME PROCEDURE ORDERING PROVIDER [id number] 10/31/2021 20:[address] Head or Brain w/o [id number] -MYRON DURAN Contrast CPT code 98686 Reason For Exam (CT Head or Brain w/o Contrast) AMS, 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 Report Examination: CT Head Clinical Information: AMS, 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 Comparison: 10/26/2021, MRI 10/27/2021 Findings: Serial [...] J Transcribed Date and Time: 10/31/2021 8:54 [facility] Carla Wong MD - 10/31/2021 Patient Name: AND[facility]W [facility]ES [facility] [id number] Computed Tomography ACCESSION EXAM DATE/TIME PROCEDURE ORDERING PROVIDER [id number] 10/31/2021 20:[address] Head or Brain w/o [id number] -MYRON DURAN Contrast CPT code 24586 Reason For Exam (CT Head or Brain w/o Contrast) AMS, 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 Report Examination: CT Head Clinical Information: AMS, 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 Comparison: 10/26/2021, MRI 10/27/2021 Findings: Serial [...] Brain w/o Contrast Patient Name: AND[facility]W [facility]ENTES [facility] [id number] Computed Tomography ACCESSION EXAM DATE/TIME PROCEDURE ORDERING PROVIDER [id number] 10/31/2021 20:[address] Head or Brain w/o 106383 -MYRON DURAN Contrast CPT code 83718 Reason For Exam (CT Head or Brain w/o Contrast) AMS, 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 Report Examination: CT Head Clinical Information: AMS, 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 Comparison: 10/26/2021, MRI 10/27/2021 Findings: Serial [...] Transcribed Date and Time: 10/31/2021 8:54 Normal [facility] ED Provider Noteon ED Provider Note Emergency Department Encounter [facility] Patient: Andrew Sifuentes : [...] [employer] Dante Kim MD 10/31/21 3921 Normal [facility] ED Provider Note [facility] EMERGENCY DEPARTMENT ENCOUNTER Pt Name: Andrew Sifuentes Birthdate 1950 Date of evaluation: 10/31/2021 Provider: Myron Duran MD CHIEF COMPLAINT Chief Complaint Patient presents with ? Altered Mental Status Pt presents to ED via [facility] for complaint listed. Pt is from [place] [facility]. Pt's LKW was 1000 hours [...] have a history of hydrocephalus with a DATA MINING ANALYST shunt. 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 REVIEW OF [...] (HCC) ? Kidney stone ? Neuropathy ? DATA MINING ANALYST (ventriculoperitoneal) shunt status SURGICAL HISTORY Past Surgical [...] of Transportati (more content not included)... Normal [facility] EKG 12 Lead - Chest Painon 0 10-31-2021 [facility] Test Date: 2021-10-31 Pat Name: ANDREW SIFUENTES Department: ER Room: 40 Gender: M Floor Steward/Stewardess: ANDRES : 1950 Requested By: MYRON DURAN Order Number: [id number] Reading MD: Dante Kim Measurements Intervals [place] Rate: 91 P: 41 FL: 154 QRS: 50 QRSD: 147 T: 8 QT: 385 QTc: 474 Interpretive Statements Sinus rhythm Right bundle branch block Electronically Signed On 10-31-2021 20:36:25 EDT by Dante Kim [facility] Dante Kim M D - 10/31/2021 [facility] Test Date: 2021-10-31 Pat Name: ANDREW SIFUENTES Department: ER Room: 40 Gender: M Floor Steward/Stewardess: ANDRES : 1950 Requested By: MYRON DURAN Order Number: [id number] Reading MD: Dante Kim Measurements Intervals [place] Rate: 91 P: 41 FL: 154 QRS: 50 QRSD: 147 T: 8 QT: 385 QTc: 474 Interpretive Statements Sinus rhythm Right bundle branch block Electronically Signed On 10-31-2021 20:36:25 EDT by Dante Kim [facility] Work Phone: EKG 12 Lead - Chest PainOrde red By: Dante Kim on 10-31-2021 [facility] Work Phone: Hemogram w/ Autodiffon 10-31 Abs Baso Cnt 0.1 10*3/uL Normal 0.0-0.2 [facility] Comment on above: Performed By: #### P T/AP, TROPN, BMP3, HEMDF #### [facility] [email or web address] [facility] [address] [place] [address] Abs Neutrophile Cnt 6.0 10*3/uL Normal 1.8-7.0 [facility] Comment on above: Performed By: #### P T/AP, TROPN, BMP3, HEMDF #### [place] [address] [place], [place] Basophils/100 WBC (Bld) 1.1 % Normal 0.0-2.0 [facility] Comment on above: Performed By: #### P T/AP, TROPN, BMP3, HEMDF #### [address] [address] [place], [place] Eosinophils (Bld) [#/Vol] 0.2 10*3/uL Normal 0.0-0.5 [facility] Comment on above: Performed By: #### P T/AP, TROPN, BMP3, HEMDF #### [place] [address] [place], [place] Eosinophils/100 WBC (Bld) 2.3 % Normal 1.0-6.0 [facility] Comment on above: Performed By: #### P T/AP, TROPN, BMP3, HEMDF #### [address] Erythrocyte distribution width (RBC) [Ratio] 17.2 % High 11.5-14.5 [facility] Comment on above: Performed By: #### P T/AP, TROPN, BMP3, HEMDF #### [address] Granulocytes/100 WBC (Bld) 61.8 % Normal 40.0-80.0 [facility] Comment on above: Performed By: #### P T/AP, TROPN, BMP3, HEMDF #### [place] [address] [place], [place] Hematocrit (Bld) [Volume fraction] 35.0 % Low 40.0-52.0 [facility] Comment on above: Performed By: #### P T/AP, TROPN, BMP3, HEMDF #### [place] [address] [place], [place] Hemoglobin (Bld) [Mass/Vol] 11.3 g/dL Low 13.0-18.0 [facility] Comment on above: Performed By: #### P T/AP, TROPN, BMP3, HEMDF #### [place] [address] [place], [place] Lymphocytes (Bld) [#/Vol] 2.8 10*3/uL Normal 1.0-4.3 [facility] Comment on above: Performed By: #### P T/AP, TROPN, BMP3, HEMDF #### [place] [address] [place], [place] Lymphocytes/100 WBC (Bld) 29.2 % Normal 20.0-40.0 [facility] Comment on above: Performed By: #### P T/AP, TROPN, BMP3, HEMDF #### [address] MCH (RBC) [Entitic mass] 27.5 pg Normal 26.0-34.0 [facility] Comment on above: Performed By: #### P T/AP, TROPN, BMP3, HEMDF #### [address] [place], [place] MCHC 32.3 % Normal 32.0-36.0 [facility] Comment on above: Performed By: #### P T/AP, TROPN, BMP3, HEMDF #### [address] MCV (RBC) [Entitic vol] 85.0 fL Normal 80.0-98.0 [facility] Comment on above: Performed By: #### P T/AP, TROPN, BMP3, HEMDF #### [place] [address] [place], [place] Monocytes (Bld) [#/Vol] 0.5 10*3/uL Normal 0.0-0.8 [facility] Comment on above: Performed By: #### P T/AP, TROPN, BMP3, HEMDF #### [place] [address] [place], [place] Monocytes/100 WBC (Bld) 5.6 % Normal 2.0-10.0 [facility] Comment on above: Performed By: #### P T/AP, TROPN, BMP3, HEMDF #### [facility] [address] [place], [place] Platelet mean volume (Bld) [Entitic vol] 8.6 fL Normal 7.4-12.4 [facility] Comment on above: Result Comment: MPV is a calculated measurement using platelet volume ratio. Performed By: #### P T/AP, TROPN, BMP3, HEMDF #### [facility] [address] [place], [place] Platelets (Bld) [#/Vol] 348 10*3/uL Normal 140-440 [facility] Comment on above: Performed By: #### P T/AP, TROPN, BMP3, HEMDF #### [place] [place], [place] RBC (Bld) [#/Vol] 4.12 10*6/uL Low 4.40-5.90 [facility] Comment on above: Performed By: #### P T/AP, TROPN, BMP3, HEMDF #### [facility] [address] [place], [place] WBC (Bld) [#/Vol] 9.7 10*3/uL Normal 3.6-10.7 [facility] Comment on above: Performed By: #### P T/AP, TROPN, BMP3, HEMDF #### [facility] [address] [place], [place] Laboratory - Coagulationon 0 10-31-2021 INR Coag (Bld) [Relative time] 2.0 {INR} [facility] Work Phone: Comment on above: Critical Value [...] High 9.0 - 12.0 s [facility] Comment on above: . Test Performed by [facility], [address] [place] [address] [facility] Protime AND APTTon 2 aPTT Coag (Bld) [Time] 39.2 s High 20.0-30.5 [facility] Comment on above: Result Comment: NOTE : The therapeutic time for Heparin anticoagulation, based on Xa activity inhibition, is an APTT of 46-80 seconds. Performed By: #### P T/AP, TROPN, BMP3, HEMDF #### [address] [address] INR 1.9 High 0.9-1.1 [facility] Comment on above: Result Comment: Harry [...] P T/AP, TROPN, BMP3, HEMDF #### [address] [address] PT Coag (PPP) [Time] 19.8 s High 9.0-12.0 [facility] Comment on above: Result Comment: . Performed By: #### P T/AP, TROPN, BMP3, HEMDF #### [address] [address] Troponin Ion 10-31-2021 Troponin I.cardiac [Mass/Vol] ng/mL Normal 0.000-0.034 [facility] Comment on above: Result Comment: . Performed By: #### P T/AP, TROPN, BMP3, HEMDF #### [facility] [address] [place] [address] Troponin x1on 10-31-2021 Troponin I.cardiac [Mass/Vol] ng/mL 0.000 - 0.034 ng/mL [facility] Comment on above: . Test Performed by [facility], [address] [place] [address] [facility] Whole blood prothrombin time on 10-31-2021 PT Coag (Bld) [Time] 23.7 s 11.7-14.9 [facility] Work Phone: XR ABDOMEN (KUB) (SINGLE AP VIEW)on 10-31-2021 Patient Name: ANDREW SIF[facility]ENTES [facility] [id number] Diagnostic Radiology ACCESSION EXAM DATE/TIME PROCEDURE ORDERING PROVIDER [id number] 10/31/2021 20:36 EDT CR Abdomen AP [id number] -MYRON DURAN CPT code 07721 Reason For Exam (CR Abdomen AP) second vp hr assessment shunt, 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 CHEST PORTABLE [...] Radiology ACCESSION EXAM DATE/TIME PROCEDURE ORDERING PROVIDER [id number] 10/31/2021 20:36 EDT CR Abdomen AP [id number] -MYRON DURAN CPT code 56446 Reason For Exam (CR Abdomen AP) second vp hr assessment shunt, 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 CHEST PORTABLE [...] and Time: 10/31/2021 8:49 [facility] Work Phone: [facility] Work Phone: XR CHEST PORTABLEon 11-01-19 Patient Name: ANDREW SIFUENTES Diagnostic Radiology ACCESSION EXAM DATE/TIME PROCEDURE ORDERING PROVIDER [id number] 10/31/2021 20:36 EDT CR Chest Portable [id number] -MYRON DURAN CPT code 54823 Reason For Exam (CR Chest Portable) AMS [...] WENDELL Transcribed Date and Time: 10/31/2021 8:49 [facility] Huang Munoz MD - 10/31/2021 Patient Name: ANDREW SIFUENTES Diagnostic Radiology ACCESSION EXAM DATE/TIME PROCEDURE ORDERING PROVIDER [id number] 10/31/2021 20:36 EDT CR Chest Portable [id number] MYRON GALINDO CPT code 85665 Reason For Exam (CR Chest Portable) AMS [...] WENDELL Transcribed Date and Time: 10/31/2021 8:49 [facility] Work Phone: XR CHEST PORTABLEOrdered By: Huang Reynoso on 10-31-2021 [facility] Work Phone: Lupus Anticoagulanton 2021 DRVVT Confirmation Test Not Applicable Negative ratio [facility] Work Phone: dRVVT Screen 38 [facility] Work Phone: Hex Phosph Neut Test Not Applicable Negative NA [facility] Work Phone: Interpretation and review of laboratory results Abnormal [facility] Work Phone: LUPUS INTERPRETATION See Note [facility] Work Phone: Comment on above: Lupus [...] has not already been performed. Performed by [facility], [address], [facility] [place] [address] www.[email or web address], Quiana Castro MD - Lab. Director Platelet Neutralization Not Applicable Negative NA [facility] Work Phone: [phone] PTT-D Heparin Neutralized 48 [facility] Work Phone: PTT-LA 55 High [facility] Work Phone: Reptilase Tm 17.6 <=21.9 sec [facility] Work Phone: Thrombin Time 25.3 High [facility] Work Phone: [facility] Work Phone: Lupus Anticoagulant Reflexiv e Panelon 10-29-2021 aPTT Coag (Bld) [Time] 55 s High 32-48 [facility] Comment on above: Performed By: #### C OVAG #### [facility] [address] [place] [address] aPTT Coag (Bld) [Time] 48 s Normal 32-48 [facility] Comment on above: Performed By: #### C OVAG #### [facility] [address] [place] [address] DRVVT 1:1 Mix Not Applicable Normal 33-44 [facility] Work Phone: [phone] Comment on above: Performed By: #### C OVAG #### [facility] [address] [place] [address] dRVVT Confirmation Not Applicable Normal Negative [facility] Comment on above: Performed By: #### C OVAG #### [facility] [address] [place] [address] dRVVT Screen 38 sec Normal 33-44 [facility] Comment on above: Performed By: #### C OVAG #### [facility] [address] [place] [address] Hexagonal Phospholipid Neutral Reflex Not Applicable Normal Negative [facility] Comment on above: Performed By: #### C OVAG #### [facility] [address] [place] [address] Lupus Anticoagulant Interpretation See Note Normal [facility] Comment on above: Result Comment: Lupu [...] has not already been performed. Performed by [facility], [address] [place] [id number] www[email or web address], Quiana Castro MD - Lab. Director Performed By: #### C OVAG #### [facility] [address] [place] [address] Platelet Neutralization (PTT-D, Confirm) Not Applicable Normal Negative [facility] Comment on above: Performed By: #### C OVAG #### [facility] [address] [place] [address] PT Coag (PPP) [Time] 14.7 s Normal 12.0-15.5 [facility] Work Phone: Comment on above: Performed By: #### C OVAG #### [facility] [address] [place] [address] PTT-D 1:1 Mix Not Applicable Normal 32-48 [facility] Work Phone: Comment on above: Performed By: #### C OVAG #### [facility] [address] [place] [address] Reptilase Time 17.6 sec Normal <=21.9 [facility] Comment on above: Performed By: #### C OVAG #### [facility] [address] [place] [address] Thrombin Time 25.3 sec High 14.7-19.5 [facility] Comment on above: Performed By: #### C OVAG #### [facility] [address] [place] [address] POCT COVID-19, Antigenon SARS-CoV-2 Nucleocapsid Antigen Negative Negative NA [facility] Comment on above: A negative result does not rule out the possibility of SARS-CoV-2 infection. NAAT-based methods should be considered for symptomatic patients presenting greater than seven days after onset of symptoms. Method: Lateral flow immunoassay. Fact sheets for healthcare providers and patients can be found at the following sites: https://www.fda.gov/media/930818/download https://www.fda.gov/media/315674/download Test Performed by [facility], [address] [facility] [place] [id number] [place] [address] LAB [facility] Prothrombin Timeon INR 2.7 High 0.9-1.1 [facility] Comment on above: Result Comment: Harry [...] Infarction Performed By: #### P T #### [facility] [address] [place] [address] PT Coag (PPP) [Time] 27.4 s High 9.0-12.0 [facility] Comment on above: Result Comment: . Performed By: #### P T #### [facility] [address] [place] [address] Protime-INRon 10-29-2021 INR Coag (Bld) [Relative time] [...] High 9.0 - 12.0 s [facility] Work Phone: Comment on above: . Test Performed by [facility] [email or web address] [facility], [address], [place], [place] [address] [facility] Work Phone: [phone] SARS-CoV-2 Antigenon 022 SARS-CoV-2 Antigen Negative Normal Negative [facility] Comment on above: Result Comment: A negative result does not rule out the possibility of SARS-CoV-2 infection. NAAT-based methods should be considered for symptomatic patients presenting greater than seven days after onset of symptoms. Method: Lateral flow immunoassay. Fact sheets for healthcare providers and patients can be found at the following sites: https://www.[employer].gov/media/270457/download https://www.[employer].gov/media/200643/download Performed By: #### C OVAG #### [facility] [email or web address] [facility] [address] [place] [address] CBCon 10-28-2021 Hematocrit (Bld) [Volume fraction] 33.4 % Low 40.0 - 52.0 % [facility] Work Phone: Hemoglobin (Bld) [Mass/Vol] 11.0 g/dL Low 13.0 - 18.0 g/dL [facility] Work Phone: Interpretation and review of laboratory results Abnormal [facility] Work Phone: MCH (RBC) [Entitic mass] 27.8 pg 26.0 - 34.0 pg [facility] Work Phone: MCHC (RBC) [Mass/Vol] 32.8 % 32.0 - 36.0 % [facility] Work Phone: MCV (RBC) [Entitic vol] 84.8 fL 80.0 - 98.0 fL [facility] Work Phone: Platelet distribution width (Bld) [Ratio] 17.1 % High 11.5 - 14.5 % [facility] Work Phone: Platelet mean volume (Bld) [Entitic vol] 8.3 fL 7.4 - 12.4 fL [facility] Work Phone: Comment on above: MPV is a calculated measurement using platelet volume ratio. Platelets (Bld) [#/Vol] 344 10*3/uL 140 - 440 10*3/uL [facility] Work Phone: [phone] RBC (Bld) [#/Vol] 3.94 10*6/uL Low 4.40 - 5.9 0 10*6/uL [facility] Work Phone: [phone] WBC (Bld) [#/Vol] 10.0 10*3/uL 3.6 - 10.7 10*3/uL [facility] Work Phone: Test Performed by [facility], [address] [place], [place] [id number] [place] [address] LAB [facility] Work Phone: Comp Metabolic Panelon 10-28 ALP [Catalytic activity/Vol] 103 U/L Normal 38-126 [facility] Comment on above: Performed By: #### C A19O, LUPUS #### The performing lab is in the report. #### NSEO #### [facility] #### HEMDF, LDH3, BMP3, MG3, PT, CEA2 #### [facility] [address] [place] [address] #### B2GPM, B2GPA, B2GPG #### [facility] [address] [place] [address] ALT [Catalytic activity/Vol] 26 U/L Normal 0-49 [facility] Comment on above: Result Comment: The ALT test is performed by an updated assay method. Please note that the reference intervals have been changed and are now sex specific. Performed By: #### C A19O, LUPUS #### The performing lab is in the report. #### NSEO #### [facility] #### HEMDF, LDH3, BMP3, MG3, PT, CEA2 #### [facility] [address] [place] [address] #### B2GPM, B2GPA, B2GPG #### [address] AST [Catalytic activity/Vol] 24 U/L Normal 15-46 [facility] Comment on above: Performed By: #### C A19O, LUPUS #### The performing lab is in the report. #### NSEO #### [facility] #### HEMDF, LDH3, BMP3, MG3, PT, CEA2 #### [place] [address] [place] #### B2GPM, B2GPA, B2GPG #### [address] Calcium [Mass/Vol] 9.1 mg/dL Normal 8.4-10.4 [facility] Comment on above: Performed By: #### C A19O, LUPUS #### The performing lab is in the report. #### NSEO #### [facility] #### HEMDF, LDH3, BMP3, MG3, PT, CEA2 #### [address] [place] [address] #### B2GPM, B2GPA, B2GPG #### [address] Glucose [Mass/Vol] 117 mg/dL High 70-100 [facility] Comment on above: Performed By: #### C A19O, LUPUS #### The performing lab is in the report. #### NSEO #### [facility] #### HEMDF, LDH3, BMP3, MG3, PT, CEA2 #### [place] [address] [place] [address] #### B2GPM, B2GPA, B2GPG #### [address] Urea nitrogen [Mass/Vol] 16 mg/dL Normal 7-17 [facility] Comment on above: Performed By: #### C A19O, LUPUS #### The performing lab is in the report. #### NSEO #### [facility] #### HEMDF, LDH3, BMP3, MG3, PT, CEA2 #### [place] [address] [place] [address] #### B2GPM, B2GPA, B2GPG #### [address] Anion gap [Moles/Vol] 5 mmol/L Normal 3-13 [facility] Comment on above: Performed By: #### C A19O, LUPUS #### The performing lab is in the report. #### NSEO #### [facility] #### HEMDF, LDH3, BMP3, MG3, PT, CEA2 #### [place] [address] [place] [address] #### B2GPM, B2GPA, B2GPG #### [address] Bilirubin [Mass/Vol] 0.4 mg/dL Normal 0.2-1.3 [facility] Comment on above: Performed By: #### C A19O, LUPUS #### The performing lab is in the report. #### NSEO #### [facility] #### HEMDF, LDH3, BMP3, MG3, PT, CEA2 #### [place] [address] [place] [address] #### B2GPM, B2GPA, B2GPG #### [address] CO2 [Moles/Vol] 29 mmol/L Normal 22-30 [facility] Comment on above: Performed By: #### C A19O, LUPUS #### The performing lab is in the report. #### NSEO #### [facility] #### HEMDF, LDH3, BMP3, MG3, PT, CEA2 #### [place] [address] [place] [address] #### B2GPM, B2GPA, B2GPG #### [address] Creatinine [Mass/Vol] 0.71 mg/dL Normal 0.52-1.25 [facility] Comment on above: Performed By: #### C A19O, LUPUS #### The performing lab is in the report. #### NSEO #### [facility] #### HEMDF, LDH3, BMP3, MG3, PT, CEA2 #### [facility] [address] [place], [place] #### B2GPM, B2GPA, B2GPG #### [address] eGFR OTHER > 90.0 Normal >60 [facility] Comment on above: Result Comment: KDIG [...] HEMDF, LDH3, BMP3, MG3, PT, CEA2 #### [facility] [address] [place] [address] #### B2GPM, B2GPA, B2GPG #### [address] GFR/1.73 sq M.predicted among blacks MDRD (S/P/Bld) [Vol rate/Area] mL/min/{1.73_m2} Normal >60 [facility] Comment on above: Performed By: #### C A19O, LUPUS #### The performing lab is in the report. #### NSEO #### [facility] #### HEMDF, LDH3, BMP3, MG3, PT, CEA2 #### [facility] [address] [place] [address] #### B2GPM, B2GPA, B2GPG #### [address] Protein [Mass/Vol] 7.1 g/dL Normal 6.3-8.2 [facility] Comment on above: Performed By: #### C A19O, LUPUS #### The performing lab is in the report. #### NSEO #### [facility] #### HEMDF, LDH3, BMP3, MG3, PT, CEA2 #### [facility] [address] [place] [address] #### B2GPM, B2GPA, B2GPG #### [address] Potassium [Moles/Vol] 3.5 mmol/L Normal 3.5-5.1 [facility] Comment on above: Performed By: #### C A19O, LUPUS #### The performing lab is in the report. #### NSEO #### [facility] #### HEMDF, LDH3, BMP3, MG3, PT, CEA2 #### [facility] [address] [place] [address] #### B2GPM, B2GPA, B2GPG #### [address] Sodium [Moles/Vol] 138 mmol/L Normal 135-145 [facility] Comment on above: Performed By: #### C A19O, LUPUS #### The performing lab is in the report. #### NSEO #### [facility] #### HEMDF, LDH3, BMP3, MG3, PT, CEA2 #### [facility] [address] [place] [address] #### B2GPM, B2GPA, B2GPG #### [address] Albumin [Mass/Vol] 3.7 g/dL Normal 3.5-5.0 [facility] Comment on above: Performed By: #### C A19O, LUPUS #### The performing lab is in the report. #### NSEO #### [facility] #### HEMDF, LDH3, BMP3, MG3, PT, CEA2 #### [facility] [address] [place] [address] #### B2GPM, B2GPA, B2GPG #### [address] Chloride [Moles/Vol] 104 mmol/L Normal 98-107 [facility] Comment on above: Performed By: #### C A19O, LUPUS #### The performing lab is in the report. #### NSEO #### [facility] #### HEMDF, LDH3, BMP3, MG3, PT, CEA2 #### [facility] [address] [place] [address] #### B2GPM, B2GPA, B2GPG #### [address] Comprehensive Metabolic Pane kiel 10-28-2021 Albumin [Mass/Vol] 3.7 g/dL 3.5 - 5.0 g/dL [facility] Work Phone: ALP (Bld) [Catalytic activity/Vol] 103 U/L 38 - 126 U/L [facility] Work Phone: ALT [Catalytic activity/Vol] 26 [...] - 1 .3 mg/dL [facility] Work Phone: [phone] Calcium [Mass/Vol] 9.1 mg/dL 8.4 - 10. 4 mg/dL [facility] Work Phone: [phone] Chloride [Moles/Vol] 104 mmol/L 98 - 10 7 mmol/L [facility] Work Phone: CO2 [Moles/Vol] 29 mmol/L 22 - 30 mmol/L [facility] Work Phone: Creatinine [Mass/Vol] 0.71 mg/dL 0.52 - 1.25 mg/dL [facility] Work Phone: EGFR IF NonAfrican Montenegrin >90.0 >60 mL/min [facility] Work Phone: Comment on above: KDIGO [...] fraction] 7.1 g/dL 6.3 - 8.2 g/dL [facility] Work Phone: GFR/1.73 sq M.predicted among blacks MDRD (S/P/Bld) [Vol rate/Area] mL/min/{1.73_m2} >60 mL/min [facility] Work Phone: Glucose [Mass/Vol] 117 mg/dL High 70 - 100 mg/dL [facility] Work Phone: Interpretation and review of laboratory results Abnormal [facility] Work Phone: Potassium [Moles/Vol] 3.5 mmol/L 3.5 - 5.1 mmol/L [facility] Work Phone: Sodium [Moles/Vol] 138 mmol/L 135 - 145 mmol/L [facility] Work Phone: Urea nitrogen (BldV) [Mass/Vol] 16 mg/dL 7 - 17 mg/dL [facility] Work Phone: Test Performed by [facility], [address] [place] [id number] [place] [address] LAB [facility] Work Phone: Hemogramon 10-28-2021 Erythrocyte distribution width (RBC) [Ratio] 17.1 % High 11.5-14.5 [facility] Comment on above: Performed By: #### C A19O, LUPUS #### The performing lab is in the report. #### NSEO #### [facility] #### HEMDF, LDH3, BMP3, MG3, PT, CEA2 #### [address] [address] #### B2GPM, B2GPA, B2GPG #### [address] [address] Hematocrit (Bld) [Volume fraction] 33.4 % Low 40.0-52.0 [facility] Comment on above: Performed By: #### C A19O, LUPUS #### The performing lab is in the report. #### NSEO #### [facility] #### HEMDF, LDH3, BMP3, MG3, PT, CEA2 #### [address] [address] #### B2GPM, B2GPA, B2GPG #### [address] Hemoglobin (Bld) [Mass/Vol] 11.0 g/dL Low 13.0-18.0 [facility] Comment on above: Performed By: #### C A19O, LUPUS #### The performing lab is in the report. #### NSEO #### [facility] #### HEMDF, LDH3, BMP3, MG3, PT, CEA2 #### [place] [address] [place], [place] #### B2GPM, B2GPA, B2GPG #### [address] MCH (RBC) [Entitic mass] 27.8 pg Normal 26.0-34.0 [facility] Comment on above: Performed By: #### C A19O, LUPUS #### The performing lab is in the report. #### NSEO #### [facility] #### HEMDF, LDH3, BMP3, MG3, PT, CEA2 #### [address] [place], [place] #### B2GPM, B2GPA, B2GPG #### [address] MCHC 32.8 % Normal 32.0-36.0 [facility] Comment on above: Performed By: #### C A19O, LUPUS #### The performing lab is in the report. #### NSEO #### [facility] #### HEMDF, LDH3, BMP3, MG3, PT, CEA2 #### [address] [place], [place] #### B2GPM, B2GPA, B2GPG #### [address] MCV (RBC) [Entitic vol] 84.8 fL Normal 80.0-98.0 [facility] Comment on above: Performed By: #### C A19O, LUPUS #### The performing lab is in the report. #### NSEO #### [facility] #### HEMDF, LDH3, BMP3, MG3, PT, CEA2 #### [facility] [address] [place] [address] #### B2GPM, B2GPA, B2GPG #### [address] Platelet mean volume (Bld) [Entitic vol] 8.3 fL Normal 7.4-12.4 [facility] Comment on above: Result Comment: MPV is a calculated measurement using platelet volume ratio. Performed By: #### C A19O, LUPUS #### The performing lab is in the report. #### NSEO #### [facility] #### HEMDF, LDH3, BMP3, MG3, PT, CEA2 #### [address] [facility] [place] #### B2GPM, B2GPA, B2GPG #### [address] Platelets (Bld) [#/Vol] 344 10*3/uL Normal 140-440 [facility] Comment on above: Performed By: #### C A19O, LUPUS #### The performing lab is in the report. #### NSEO #### [facility] #### HEMDF, LDH3, BMP3, MG3, PT, CEA2 #### [address] [facility] [place] #### B2GPM, B2GPA, B2GPG #### [address] RBC (Bld) [#/Vol] 3.94 10*6/uL Low 4.40-5.90 [facility] Comment on above: Performed By: #### C A19O, LUPUS #### The performing lab is in the report. #### NSEO #### [facility] #### HEMDF, LDH3, BMP3, MG3, PT, CEA2 #### [address] [place] [address] #### B2GPM, B2GPA, B2GPG #### [facility] [address] [place] [address] WBC (Bld) [#/Vol] 10.0 10*3/uL Normal 3.6-10.7 [facility] Comment on above: Performed By: #### C A19O, LUPUS #### The performing lab is in the report. #### NSEO #### [facility] #### HEMDF, LDH3, BMP3, MG3, PT, CEA2 #### [facility] [address] [place] [address] #### B2GPM, B2GPA, B2GPG #### [facility] [address], [place] Neuron Specific Enolaseon Neuron Specific Enolase 20.8 Normal [facility] Comment on above: Result Comment: Neur on Specific Enolase, Serum 20.8 ng/mL H (Ref Interval: <=12.7) NSE and Hgb are elevated in the specimen. The elevated NSE may be a result of hemolysis as NSE is expressed in red blood cells. Interpret results with caution. INTERPRETIVE INFORMATION: Neuron Specific Enolase in Serum This assay is performed using the [employer] NSE Kryptor Immunoassay. Results obtained with different assay methods or kits cannot be used interchangeably. Results cannot be interpreted as absolute evidence of the presence or absence of malignant disease. This test was developed and its performance characteristics determined by [employer]. It has not been cleared or approved by the [place] Food and Drug Administration. This test was performed in a CLIA certified laboratory and is intended for clinical purposes. Performed By: #### C OVAG #### [facility] [address] [place] [address] Neuron specific enolase (NSE )on 10-28-2021 Neuron [...] Serum This assay is performed using the [employer] NSE Kryptor Immunoassay. Results obtained with different assay methods or kits cannot be used interchangeably. Results cannot be interpreted as absolute evidence of the presence or absence of malignant disease. This test was developed and its performance characteristics determined by [facility]. It has not been cleared or approved by the [place] Food and Drug Administration. This test was performed in a CLIA certified laboratory and is intended for clinical purposes. 1 [facility] Work Phone: Prothrombin Timeon 2 INR 3.1 High 0.9-1.1 [facility] Comment on above: Result Comment: Harry [...] HEMDF, LDH3, BMP3, MG3, PT, CEA2 #### [facility] [address] [place] [address] #### B2GPM, B2GPA, B2GPG #### [address] [address] PT Coag (PPP) [Time] 30.8 s High 9.0-12.0 [facility] Comment on above: Result Comment: . Performed By: #### C A19O, LUPUS #### The performing lab is in the report. #### NSEO #### [facility] #### HEMDF, LDH3, BMP3, MG3, PT, CEA2 #### [facility] [address] [place] [address] #### B2GPM, B2GPA, B2GPG #### [address] [address] Protime-INRon 10-28-2021 INR Coag (Bld) [Relative time] [...] 30.8 s High 9.0 - 12.0 s [employer] Work Phone: Comment on above: . Test Performed by [facility], [address] [place], [place] [id number] [place] [address] LAB [facility] Work Phone: MRI BRAIN WO CONTRASTon 10-06 Patient Name: ANDREW SIFUENTES [facility] ACCESSION EXAM DATE/TIME PROCEDURE ORDERING PROVIDER [id number] 10/27/2021 13:14 EDT MRI Brain w/o Contrast UNASSIGNED, UNASSIGNED CPT code 93680 Reason For Exam (MRI Brain w/o Contrast) stroke Patient has DATA MINING ANALYST shunt in place, please follow Radiology protocol [...] Transcribed Date and Time: 10/27/2021 2:39 [facility] Venus Loyd MD - 10/27/2021 Patient Name: ANDREW SIFUENTES [facility] ACCESSION EXAM DATE/TIME PROCEDURE ORDERING PROVIDER [id number] 10/27/2021 13:14 EDT MRI Brain w/o Contrast UNASSIGNED, UNASSIGNED CPT code 04627 Reason For Exam (MRI Brain w/o Contrast) stroke Patient has DATA MINING ANALYST shunt in place, please follow Radiology protocol [...] Brain w/o Contrast Patient Name: ANDREW VELAZQUEZ [facility]#: [id number] Magnetic Resonance Imaging ACCESSION EXAM DATE/TIME PROCEDURE ORDERING PROVIDER [id number] 10/27/2021 13:14 EDT MRI Brain w/o Contrast UNASSIGNED, UNASSIGNED CPT code 79556 Reason For Exam (MRI Brain w/o Contrast) stroke Patient has DATA MINING ANALYST shunt in place, please follow Radiology protocol [...] Transcribed Date and Time: 10/27/2021 2:39 Normal [facility] Prothrombin Timeon INR 2.1 High 0.9-1.1 [facility] Comment on above: Result Comment: Harry [...] Infarction Performed By: #### P T #### [facility] [address] [place] [address] PT Coag (PPP) [Time] 21.9 s High 9.0-12.0 [facility] Work Phone: Comment on above: . Result Comment: . Performed By: #### P T #### [facility] [address] [place] [address] Protime-INRon 10-27-2021 INR Coag (Bld) [Relative time] [...] [facility] Work Phone: Test Performed by [facility], [address], [place], [place] [address] [facility] Work Phone: CT HEAD WO CONTRASTon 2021 Patient Name: ANDREW SIFUENTES Computed Tomography ACCESSION EXAM DATE/TIME PROCEDURE ORDERING PROVIDER [id number] 10/26/2021 11:[address] Head or Brain w/o JUNIE PINEDA ALLISON Contrast CPT code 86017 Reason For Exam (CT Head or Brain w/o Contrast) hydrocephalus. thank you Report CLINICAL INFORMATION: Hydrocephalus. Shunt. 3 mm axial cuts through the head are obtained without IV contrast. The examination is compared to a previous study dated 06/29/2014. FINDINGS: Old DATA MINING ANALYST shunt tubing is noted bilaterally. The new [...] are clear. IMPRESSION: 1. Old and new DATA MINING ANALYST shunt tubing. 2. No hydrocephalus. 3. Atrophy and evidence of small-vessel ischemic disease. 4. No CT evidence of an acute intracranial process. Report Dictated on --- Final --- Dictating Physician: MD SOLANO JEFFREY Signed Date and Time: 10/26/2021 11:42 am Signed by: MD SOLANO JEFFREY Transcribed Date and Time: 10/26/2021 11:43 GUY ARMENDARIZ RAD Albert Solano MD - 10/26/2021 Patient Name[id number] Computed Tomography ACCESSION EXAM DATE/TIME PROCEDURE ORDERING PROVIDER [id number] 10/26/2021 11:[address] Head or Brain w/o JUNIE PINEDA ALLISON Contrast CPT code 86000 Reason For Exam (CT Head or Brain w/o Contrast) hydrocephalus. thank you Report CLINICAL INFORMATION: Hydrocephalus. Shunt. 3 mm axial cuts through the head are obtained without IV contrast. The examination is compared to a previous study dated 06/29/2014. FINDINGS: Old DATA MINING ANALYST shunt tubing is noted bilaterally. The new [...] are clear. IMPRESSION: 1. Old and new DATA MINING ANALYST shunt tubing. 2. No hydrocephalus. 3. Atrophy [...] Tomography ACCESSION EXAM DATE/TIME PROCEDURE ORDERING PROVIDER [id number] 10/26/2021 11:[address] Head or Brain w/o JUNIE PINEDA, SARINA Contrast CPT code 97144 Reason For Exam (CT Head or Brain w/o Contrast) hydrocephalus. thank you Report CLINICAL INFORMATION: Hydrocephalus. Shunt. 3 mm axial cuts through the head are obtained without IV contrast. The examination is compared to a previous study dated 06/29/2014. FINDINGS: Old DATA MINING ANALYST shunt tubing is noted bilaterally. The new [...] are clear. IMPRESSION: 1. Old and new DATA MINING ANALYST shunt tubing. 2. No hydrocephalus. 3. Atrophy and evidence of small-vessel ischemic disease. 4. No CT evidence of an acute intracranial process. Report Dictated on Final Dictating Physician: MD SOLANO JEFFREY Signed Date and Time: 10/26/2021 11:42 am Signed by: MD SOLANO JEFFREY Transcribed Date and Time: 10/26/2021 11:43 Normal [facility] EEG awake and asleepon 10-26 Bony Tompkins MD 10/26/2021 4:[address] [facility] [address] [place] [address] ROUTINE EEG REPORT Patient Name: Andrew Sifuentes : 1950 Date of Study: 10/26/2021 Duration Recorded: 23 minutes EEG#: [id number] EXTRUSION FORMER: CASTRO PROVIDER REQUESTING STUDY: Dr. Barreto REASON FOR EXAM: seizures HISTORY: Andrew Sifuentes is a 71 y.o. 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 At present patient is awake, follows commands, was able to tell his name, and that he was in hospital but not oriented to time. Per documentation patient had NCSE in May 2021, was on Vimpat, but it was discontinued as there was no evidence of recurrent seizures in July 2021 by Neurology at [facility], per daughter patient was on [...] study with video was carried out at [facility]. Scalp electrodes were positioned in person by an engineering technologist, following patient education, according to the 10-20 International system of electrode placement and maintained for integrity and quality of the recording. EEG data with video was recorded continuously and digitally stored. The engineering technologist reviewed all automated detections and [...] No normal vari (more content not included)... [facility] Work Phone: [facility] Work Phone: No Panel Informationon 10-26 Radiology Study observation (narrative) [facility] Work Phone: Prothrombin Timeon 2 INR 1.9 High 0.9-1.1 [facility] [employer] Comment on above: Result Comment: Harry mmended [...] Infarction Performed By: #### C OVAG #### [employer] [address] [place] [address] PT Coag (PPP) [Time] 19.7 s High 9.0-12.0 [facility] [employer] Comment on above: Result Comment: . Performed By: #### C OVAG #### [facility] [email or web address] [facility] [address] [place] [address] Protime-INRon 10-26-2021 INR Coag (Bld) [Relative time] [...] High 9.0 - 12.0 s [facility] Work Phone: Comment on above: . Test Performed by [facility], [address] [place], [place] [id number] [place] [address] LAB [facility] Work Phone: CA [...] or absence of malignant disease. Performed By: [place] [address] Hydrodynamics Teacher: Quiana Castro MD Result Comment: INTE [...] or absence of malignant disease. Performed By: [place] [address] Hydrodynamics Teacher: Quiana Castro MD Performed By: #### C OVAG #### [facility] [email or web address] [facility] [address] [place] [address] Cancer Antigen 19-9on 2021 [facility] Work Phone: Prothrombin Timeon INR 1.5 High 0.9-1.1 [facility] [email or web address] [facility] Comment on above: Result Comment: [...] Infarction Performed By: #### P T #### [facility] [email or web address] [facility] [address] [place] [address] PT Coag (PPP) [Time] 15.6 s High 9.0-12.0 [facility] [email or web address] [facility] Comment on above: Result Comment: . Performed By: #### P T #### [facility] [email or web address] [facility] [address] [place] [address] Protime-INRon 10-25-2021 INR Coag (Bld) [Relative time] 1.5 {INR} High [facility] Work Phone: [...] Interpretation and review of laboratory results Abnormal [facility] Work Phone: PT Coag (PPP) [Time] 15.6 s High 9.0 - 12.0 s [facility] Work Phone: Comment on above: . Test Performed by [facility], [address] [place], [place] [address] [facility] Work Phone: B-2 Glycoprotein (IGA)on Beta-2 Glyco 1 IgA <2.0 U/mL [facility] Work Phone: Comment on above: Interpretive Informa tion: Results equal to or greater than 20 U/mL = POSITIVE Results less than 20 U/mL = NEGATIVE B2 Glycoprotein I (IgM) Abon 10-24-2021 Beta-2 Glyco 1 IgM <1.5 U/mL [facility] Work Phone: Comment on above: Interpretive Informa tion: Results equal to or greater than 20 U/mL = POSITIVE Results less than 20 U/mL = NEGATIVE B2 Glycoprotein I Igg Abon 0 10-24-2021 Beta-2 Glyco 1 IgG <1.4 U/mL [facility] Work Phone: Comment on above: Interpretive Informa tion: Results equal to or greater than 20 U/mL = POSITIVE Results less than 20 U/mL = NEGATIVE Basic Metabolic Panelon 10-06 Anion gap [Moles/Vol] 8 mmol/L Normal 3-13 [facility] Comment on above: Performed By: #### C A19O, LUPUS #### The performing lab is in the report. #### NSEO #### [facility] #### HEMDF, LDH3, BMP3, MG3, PT, CEA2 #### [facility] [address] [place] [address] #### B2GPM, B2GPA, B2GPG #### [facility] [address] [place] [address] Calcium [Mass/Vol] 8.8 mg/dL Normal 8.4-10.4 [facility] Comment on above: Performed By: #### C A19O, LUPUS #### The performing lab is in the report. #### NSEO #### [facility] #### HEMDF, LDH3, BMP3, MG3, PT, CEA2 #### [facility] [address] [place] [address] #### B2GPM, B2GPA, B2GPG #### [address] CO2 [Moles/Vol] 25 mmol/L Normal 22-30 [facility] Comment on above: Performed By: #### C A19O, LUPUS #### The performing lab is in the report. #### NSEO #### [facility] #### HEMDF, LDH3, BMP3, MG3, PT, CEA2 #### [facility] [address] [place] [address] #### B2GPM, B2GPA, B2GPG #### [address] Creatinine [Mass/Vol] 0.74 mg/dL Normal 0.52-1.25 [facility] Comment on above: Performed By: #### C A19O, LUPUS #### The performing lab is in the report. #### NSEO #### [facility] #### HEMDF, LDH3, BMP3, MG3, PT, CEA2 #### [place] [address] [place] [address] #### B2GPM, B2GPA, B2GPG #### [address] eGFR OTHER > 90.0 Normal >60 [facility] Comment on above: Result Comment: KDIG [...] HEMDF, LDH3, BMP3, MG3, PT, CEA2 #### [facility] [address] [place] [address] #### B2GPM, B2GPA, B2GPG #### [address] GFR/1.73 sq M.predicted among blacks MDRD (S/P/Bld) [Vol rate/Area] mL/min/{1.73_m2} Normal >60 [facility] Comment on above: Performed By: #### C Mary LouO, LUPUS #### The performing lab is in the report. #### NSEO #### [facility] #### HEMDF, LDH3, BMP3, MG3, PT, CEA2 #### [facility] [address] [place] [address] #### B2GPM, B2GPA, B2GPG #### [address] Glucose [Mass/Vol] 116 mg/dL High 70-100 [facility] Comment on above: Performed By: #### C A19O, LUPUS #### The performing lab is in the report. #### NSEO #### [facility] #### HEMDF, LDH3, BMP3, MG3, PT, CEA2 #### [facility] [address] [place] [address] #### B2GPM, B2GPA, B2GPG #### [address] Urea nitrogen [Mass/Vol] 19 mg/dL High 7-17 [facility] Comment on above: Performed By: #### C A19O, LUPUS #### The performing lab is in the report. #### NSEO #### [facility] #### HEMDF, LDH3, BMP3, MG3, PT, CEA2 #### [place] [address] [place] [address] #### B2GPM, B2GPA, B2GPG #### [address] Chloride [Moles/Vol] 107 mmol/L Normal 98-107 [facility] Comment on above: Performed By: #### C A19O, LUPUS #### The performing lab is in the report. #### NSEO #### [facility] #### HEMDF, LDH3, BMP3, MG3, PT, CEA2 #### [place] [address] [place] [address] #### B2GPM, B2GPA, B2GPG #### [address] Potassium [Moles/Vol] 3.9 mmol/L Normal 3.5-5.1 [facility] Comment on above: Performed By: #### C A19O, LUPUS #### The performing lab is in the report. #### NSEO #### [facility] #### HEMDF, LDH3, BMP3, MG3, PT, CEA2 #### [address] [place] [address] #### B2GPM, B2GPA, B2GPG #### [address] Sodium [Moles/Vol] 140 mmol/L Normal 135-145 [facility] Comment on above: Performed By: #### C A19O, LUPUS #### The performing lab is in the report. #### NSEO #### [facility] #### HEMDF, LDH3, BMP3, MG3, PT, CEA2 #### [place] [address] [place] [address] #### B2GPM, B2GPA, B2GPG #### [address] [address] Anion gap [Moles/Vol] 8 mmol/L 3 - 13 mmol/L [facility] Calcium [Mass/Vol] 8.8 mg/dL 8.4 - 10. 4 mg/dL [facility] Chloride [Moles/Vol] 107 mmol/L 98 - 10 7 mmol/L [facility] CO2 [Moles/Vol] 25 mmol/L 22 - 30 mmol/L [facility] Creatinine [Mass/Vol] 0.74 mg/dL 0.52 - 1.25 mg/dL [facility] EGFR IF NonAfrican Montenegrin >90.0 >60 mL/min [facility] Comment on above: [...] mg/dL [facility] Test Performed by [facility], [address], [place], [place] [id number] [place] [address] LAB [facility] Beta-2 Glycoprotein I IgAon 06-20-2022 Beta-2 Glycoprotein I IgA < 2.0 Normal [facility] Comment on above: Result Comment: Inte rpretive Information: Results equal to or greater than 20 U/mL = POSITIVE Results less than 20 U/mL = NEGATIVE Performed By: #### C OVAG #### [facility] [address] [place] [address] Beta-2 Glycoprotein I IgGon 10-24-2021 Beta-2 Glycoprotein I IgG < 1.4 Normal [facility] Comment on above: Result Comment: Inte rpretive Information: Results equal to or greater than 20 U/mL = POSITIVE Results less than 20 U/mL = NEGATIVE Performed By: #### C OVAG #### [facility] [address] [place] [address] Beta-2 Glycoprotein I IgMon 10-24-2021 Beta-2 Glycoprotein I IgM < 1.5 Normal [facility] Comment on above: Result Comment: Inte rpretive Information: Results equal to or greater than 20 U/mL = POSITIVE Results less than 20 U/mL = NEGATIVE Performed By: #### C OVAG #### [facility] [address] [place] [address] No Panel Informationon 10-24 [facility] Test Performed by [facility], [address] [place] [id number] [place] [address] LAB [facility] Work Phone: PROTEIN C FUNCTIONALon 10-24 Interpretation and review of laboratory results Abnormal [facility] Protein C-Functional 185 % High 83 [...] reference intervals for this test in the [employer] [facility] Test Directory ([employer]). Performed by [facility], [address] [facility], [place] [address] www.[employer], Quiana Castro MD - Lab. Director Protein C, Functionalon 10-06 Protein C, Functional 185 % High 83-168 [facility] Comment on above: Result Comment: INTE [...] reference intervals for this test in the [employer] [facility] Test [facility] ([employer]). Performed by [facility], [address] [facility], [place] [address] www.[employer], Quiana Castro MD - Lab. Director Performed By: #### P T #### [facility] [address] [place] [address] Protein S, Functionalon 06-2 Protein S, Functional 138 % Normal 66-143 [facility] Comment on above: INTERPRETIVE INFORMA TION: [...] reference intervals for this test in the [employer] [facility] Test Directory ([employer]). Performed by [facility], [address] [facility], [place] [address] www.[employer], Quiana Castro MD - Lab. Director Result [...] reference intervals for this test in the [employer] [facility] Test Directory ([employer]). Performed by [facility], [address] [facility], [place] [id number] www.[employer], Quiana Castro MD - Lab. Director Performed By: #### P T #### [facility] [address] [place] [address] Prothrombin Timeon INR 1.2 High 0.9-1.1 [facility] Comment on above: Result Comment: Harry [...] HEMDF, LDH3, BMP3, MG3, PT, CEA2 #### [place] [address] [place] [address] #### B2GPM, B2GPA, B2GPG #### [address] [phone] PT Coag (PPP) [Time] 12.6 s High 9.0-12.0 [facility] Comment on above: Result Comment: . Performed By: #### C A19O, LUPUS #### The performing lab is in the report. #### NSEO #### [facility] #### HEMDF, LDH3, BMP3, MG3, PT, CEA2 #### [address] [place] [address] #### B2GPM, B2GPA, B2GPG #### [address] [address] Protime-INRon 10-24-2021 INR Coag (Bld) [Relative time] [...] High 9.0 - 12.0 s [facility] Comment on above: . Test Performed by [facility], [address] LAB [facility] Basic Metabolic Panelon 10-05 Anion gap [Moles/Vol] 10 mmol/L Normal 3-13 [facility] Comment on above: Performed By: #### C A19O, LUPUS #### The performing lab is in the report. #### NSEO #### [facility] #### HEMDF, LDH3, BMP3, MG3, PT, CEA2 #### [place] [address] [place] [address] #### B2GPM, B2GPA, B2GPG #### [address] [address] Calcium [Mass/Vol] 9.6 mg/dL Normal 8.4-10.4 [facility] Comment on above: Performed By: #### C A19O, LUPUS #### The performing lab is in the report. #### NSEO #### [facility] #### HEMDF, LDH3, BMP3, MG3, PT, CEA2 #### [facility] [address] [place] [address] #### B2GPM, B2GPA, B2GPG #### [address] [address] CO2 [Moles/Vol] 27 mmol/L Normal 22-30 [facility] Comment on above: Performed By: #### C A19O, LUPUS #### The performing lab is in the report. #### NSEO #### [facility] #### HEMDF, LDH3, BMP3, MG3, PT, CEA2 #### [address] [place] [address] #### B2GPM, B2GPA, B2GPG #### [address] Glucose [Mass/Vol] 109 mg/dL High 70-100 [facility] Comment on above: Performed By: #### C A19O, LUPUS #### The performing lab is in the report. #### NSEO #### [facility] #### HEMDF, LDH3, BMP3, MG3, PT, CEA2 #### [address] [place] [address] #### B2GPM, B2GPA, B2GPG #### [address] Urea nitrogen [Mass/Vol] 18 mg/dL High 7-17 [facility] Comment on above: Performed By: #### C A19O, LUPUS #### The performing lab is in the report. #### NSEO #### [facility] #### HEMDF, LDH3, BMP3, MG3, PT, CEA2 #### [address] [place] [address] #### B2GPM, B2GPA, B2GPG #### [address] Creatinine [Mass/Vol] 0.82 mg/dL Normal 0.52-1.25 [facility] Comment on above: Performed By: #### C A19O, LUPUS #### The performing lab is in the report. #### NSEO #### [facility] #### HEMDF, LDH3, BMP3, MG3, PT, CEA2 #### [address] [place] [address] #### B2GPM, B2GPA, B2GPG #### [address] GFR/1.73 sq M.predicted among blacks MDRD (S/P/Bld) [Vol rate/Area] mL/min/{1.73_m2} Normal >60 [facility] Comment on above: Performed By: #### C A19O, LUPUS #### The performing lab is in the report. #### NSEO #### [facility] #### HEMDF, LDH3, BMP3, MG3, PT, CEA2 #### [facility] [address] [place] [address] #### B2GPM, B2GPA, B2GPG #### [facility] [address] [place] [address] GFR/1.73 sq M.predicted among non-blacks MDRD (S/P/Bld) [Vol rate/Area] 89.9 mL/min/{1.73_m2} Normal >60 [facility] Comment on above: Result Comment: KDIG [...] HEMDF, LDH3, BMP3, MG3, PT, CEA2 #### [facility] [address] [place] [address] #### B2GPM, B2GPA, B2GPG #### [facility] [address] [place] [address] Chloride [Moles/Vol] 104 mmol/L Normal 98-107 [facility] Comment on above: Performed By: #### C A19O, LUPUS #### The performing lab is in the report. #### NSEO #### [facility] #### HEMDF, LDH3, BMP3, MG3, PT, CEA2 #### [place] [address] [place] [address] #### B2GPM, B2GPA, B2GPG #### [address] Potassium [Moles/Vol] 3.9 mmol/L Normal 3.5-5.1 [facility] Comment on above: Performed By: #### C A19O, LUPUS #### The performing lab is in the report. #### NSEO #### [facility] #### HEMDF, LDH3, BMP3, MG3, PT, CEA2 #### [place] [address] [place] [address] #### B2GPM, B2GPA, B2GPG #### [address] Sodium [Moles/Vol] 142 mmol/L Normal 135-145 [facility] Comment on above: Performed By: #### C A19O, LUPUS #### The performing lab is in the report. #### NSEO #### [facility] #### HEMDF, LDH3, BMP3, MG3, PT, CEA2 #### [place] [address] [place] [address] #### B2GPM, B2GPA, B2GPG #### [address] Anion gap [Moles/Vol] 10 mmol/L 3 - 13 mmol/L [facility] Work Phone: Calcium [Mass/Vol] 9.6 mg/dL 8.4 - 10. 4 mg/dL [facility] Work Phone: [phone] Chloride [Moles/Vol] 104 mmol/L 98 - 10 7 mmol/L [facility] Work Phone: [phone] CO2 [Moles/Vol] 27 mmol/L 22 - 30 mmol/L [facility] Work Phone: Creatinine [Mass/Vol] 0.82 mg/dL 0.52 - 1.25 mg/dL [facility] Work Phone: EGFR IF NonAfrican Montenegrin 89.9 mL/min >60 [facility] Work Phone: [phone] Comment on above: KDIGO guidelines pro [...] MDRD (S/P/Bld) [Vol rate/Area] mL/min/{1.73_m2} >60 mL/min [facility] Work Phone: [phone] Glucose [Mass/Vol] 109 mg/dL High 70 - 100 mg/dL [facility] Work Phone: [phone] Interpretation and review of laboratory results Abnormal [facility] Work Phone: [phone] Potassium [Moles/Vol] 3.9 mmol/L 3.5 - 5.1 mmol/L [facility] Work Phone: Sodium [Moles/Vol] 142 mmol/L 135 - 145 mmol/L [facility] Work Phone: Urea nitrogen (BldV) [Mass/Vol] 18 mg/dL High 7 - 17 mg/dL [facility] Work Phone: CBC with Auto Differentialon [...] (Bld) 3.9 % 1.0 - 6.0 % [facility] Work Phone: [phone] Granulocytes/100 WBC (Bld) 64.0 % 40.0 - 80.0 % [facility] Work Phone: [phone] Hematocrit (Bld) [Volume fraction] 35.1 % Low 40.0 - 52.0 % [facility] Work Phone: [phone] Hemoglobin (Bld) [Mass/Vol] 11.6 g/dL Low 13.0 - 18.0 g/dL [facility] Work Phone: [phone] Interpretation and review of laboratory results Abnormal [facility] Work Phone: [phone] Lymphocytes (Bld) [#/Vol] 2.6 10*3/uL 1.0 - 4.3 10*3/uL [facility] Work Phone: [phone] Lymphocytes/100 WBC (Bld) 25.0 % 20.0 - 40.0 % [facility] Work Phone: [phone] MCH (RBC) [Entitic mass] 28.4 pg 26.0 - 34.0 pg [facility] Work Phone: [phone] MCHC (RBC) [Mass/Vol] 33.1 % 32.0 - 36.0 % [facility] Work Phone: [phone] MCV (RBC) [Entitic vol] 85.9 fL 80.0 - 98.0 fL [facility] Work Phone: [phone] Monocytes (Bld) [#/Vol] [...] 450 10*3/uL High 140 - 440 10*3/uL [facility] Work Phone: [phone] RBC (Bld) [#/Vol] 4.08 10*6/uL Low 4.40 - 5.9 0 10*6/uL [facility] Work Phone: [phone] WBC (Bld) [#/Vol] 10.3 10*3/uL 3.6 - 10.7 10*3/uL [facility] Work Phone: [phone] Test Performed by [facility], [address] LAB [facility] Work Phone: [phone] CEAon 10-23-2021 CEA 0.8 ng/mL 0.0 - 3.0 ng/mL [facility] Work Phone: [phone] Test Performed by [facility] [email or web address] [facility], [address] LAB [facility] Work Phone: [phone] Carcinoembryonic Agon 2021 Carcinoembryonic Ag. 0.8 ng/mL Normal 0.0-3.0 [facility] [email or web address] [facility] Comment on above: Performed By: #### C A19O, LUPUS #### The performing lab is in the report. #### NSEO #### [facility] #### HEMDF, LDH3, BMP3, MG3, PT, CEA2 #### [facility] [email or web address] [facility] [address] [place] [address] #### B2GPM, B2GPA, B2GPG #### [address] Hemogram w/ Autodiffon 10-23 Abs Baso Cnt 0.1 10*3/uL Normal 0.0-0.2 [facility] Comment on above: Performed By: #### C A19O, LUPUS #### The performing lab is in the report. #### NSEO #### [facility] #### HEMDF, LDH3, BMP3, MG3, PT, CEA2 #### [facility] [address] [place], [place] #### B2GPM, B2GPA, B2GPG #### [address] Abs Neutrophile Cnt 6.6 10*3/uL Normal 1.8-7.0 [facility] Comment on above: Performed By: #### C A19O, LUPUS #### The performing lab is in the report. #### NSEO #### [facility] #### HEMDF, LDH3, BMP3, MG3, PT, CEA2 #### [facility] [address] [place], [place] #### B2GPM, B2GPA, B2GPG #### [address] Basophils/100 WBC (Bld) 1.1 % Normal 0.0-2.0 [facility] Comment on above: Performed By: #### C A19O, LUPUS #### The performing lab is in the report. #### NSEO #### [facility] #### HEMDF, LDH3, BMP3, MG3, PT, CEA2 #### [facility] [address] [place], [place] #### B2GPM, B2GPA, B2GPG #### [address] Eosinophils (Bld) [#/Vol] 0.4 10*3/uL Normal 0.0-0.5 [facility] Comment on above: Performed By: #### C A19O, LUPUS #### The performing lab is in the report. #### NSEO #### [facility] #### HEMDF, LDH3, BMP3, MG3, PT, CEA2 #### [facility] [address] [place] [address] #### B2GPM, B2GPA, B2GPG #### [address] [address] Eosinophils/100 WBC (Bld) 3.9 % Normal 1.0-6.0 [facility] Comment on above: Performed By: #### C A19O, LUPUS #### The performing lab is in the report. #### NSEO #### [facility] #### HEMDF, LDH3, BMP3, MG3, PT, CEA2 #### [facility] [address] [place] [address] #### B2GPM, B2GPA, B2GPG #### [address] [address] Erythrocyte distribution width (RBC) [Ratio] 17.4 % High 11.5-14.5 [facility] Comment on above: Performed By: #### C A19O, LUPUS #### The performing lab is in the report. #### NSEO #### [facility] #### HEMDF, LDH3, BMP3, MG3, PT, CEA2 #### [facility] [address] [place] [address] #### B2GPM, B2GPA, B2GPG #### [address] [address] Granulocytes/100 WBC (Bld) 64.0 % Normal 40.0-80.0 [facility] Comment on above: Performed By: #### C A19O, LUPUS #### The performing lab is in the report. #### NSEO #### [facility] #### HEMDF, LDH3, BMP3, MG3, PT, CEA2 #### [place] [address] [place] #### B2GPM, B2GPA, B2GPG #### [address] Hematocrit (Bld) [Volume fraction] 35.1 % Low 40.0-52.0 [facility] Comment on above: Performed By: #### C A19O, LUPUS #### The performing lab is in the report. #### NSEO #### [facility] #### HEMDF, LDH3, BMP3, MG3, PT, CEA2 #### [address] [place] #### B2GPM, B2GPA, B2GPG #### [address] Hemoglobin (Bld) [Mass/Vol] 11.6 g/dL Low 13.0-18.0 [facility] Comment on above: Performed By: #### C A19O, LUPUS #### The performing lab is in the report. #### NSEO #### [facility] #### HEMDF, LDH3, BMP3, MG3, PT, CEA2 #### [address] [place] #### B2GPM, B2GPA, B2GPG #### [address] Lymphocytes (Bld) [#/Vol] 2.6 10*3/uL Normal 1.0-4.3 [facility] Comment on above: Performed By: #### C A19O, LUPUS #### The performing lab is in the report. #### NSEO #### [facility] #### HEMDF, LDH3, BMP3, MG3, PT, CEA2 #### [address] [place] #### B2GPM, B2GPA, B2GPG #### [address] Lymphocytes/100 WBC (Bld) 25.0 % Normal 20.0-40.0 [facility] Comment on above: Performed By: #### C A19O, LUPUS #### The performing lab is in the report. #### NSEO #### [facility] #### HEMDF, LDH3, BMP3, MG3, PT, CEA2 #### [facility] [address] [place] [address] #### B2GPM, B2GPA, B2GPG #### [address] MCH (RBC) [Entitic mass] 28.4 pg Normal 26.0-34.0 [facility] Comment on above: Performed By: #### C A19O, LUPUS #### The performing lab is in the report. #### NSEO #### [facility] #### HEMDF, LDH3, BMP3, MG3, PT, CEA2 #### [facility] [address] [place], [place] #### B2GPM, B2GPA, B2GPG #### [address] MCHC 33.1 % Normal 32.0-36.0 [facility] Comment on above: Performed By: #### C A19O, LUPUS #### The performing lab is in the report. #### NSEO #### [facility] #### HEMDF, LDH3, BMP3, MG3, PT, CEA2 #### [facility] [address] [place] #### B2GPM, B2GPA, B2GPG #### [address] MCV (RBC) [Entitic vol] 85.9 fL Normal 80.0-98.0 [facility] Comment on above: Performed By: #### C A19O, LUPUS #### The performing lab is in the report. #### NSEO #### [facility] #### HEMDF, LDH3, BMP3, MG3, PT, CEA2 #### [place] [address] [place] #### B2GPM, B2GPA, B2GPG #### [address] Monocytes (Bld) [#/Vol] 0.6 10*3/uL Normal 0.0-0.8 [facility] Comment on above: Performed By: #### C A19O, LUPUS #### The performing lab is in the report. #### NSEO #### [facility] #### HEMDF, LDH3, BMP3, MG3, PT, CEA2 #### [address] [place] #### B2GPM, B2GPA, B2GPG #### [address] Monocytes/100 WBC (Bld) 6.0 % Normal 2.0-10.0 [facility] Comment on above: Performed By: #### C A19O, LUPUS #### The performing lab is in the report. #### NSEO #### [facility] #### HEMDF, LDH3, BMP3, MG3, PT, CEA2 #### [address] [facility] [place] [place] #### B2GPM, B2GPA, B2GPG #### [address] Platelet mean volume (Bld) [Entitic vol] 8.1 fL Normal 7.4-12.4 [facility] Comment on above: Result Comment: MPV is a calculated measurement using platelet volume ratio. Performed By: #### C A19O, LUPUS #### The performing lab is in the report. #### NSEO #### [facility] #### HEMDF, LDH3, BMP3, MG3, PT, CEA2 #### [place] [address] [place] #### B2GPM, B2GPA, B2GPG #### [place] [address] [place], [place] Platelets (Bld) [#/Vol] 450 10*3/uL High 140-440 [facility] Comment on above: Performed By: #### C A19O, LUPUS #### The performing lab is in the report. #### NSEO #### [facility] #### HEMDF, LDH3, BMP3, MG3, PT, CEA2 #### [facility] [address] [place], [place] #### B2GPM, B2GPA, B2GPG #### [address] RBC (Bld) [#/Vol] 4.08 10*6/uL Low 4.40-5.90 [facility] Comment on above: Performed By: #### C A19O, LUPUS #### The performing lab is in the report. #### NSEO #### [facility] #### HEMDF, LDH3, BMP3, MG3, PT, CEA2 #### [facility] [address] [place], [place] #### B2GPM, B2GPA, B2GPG #### [address] WBC (Bld) [#/Vol] 10.3 10*3/uL Normal 3.6-10.7 [facility] Comment on above: Performed By: #### C A19O, LUPUS #### The performing lab is in the report. #### NSEO #### [facility] #### HEMDF, LDH3, BMP3, MG3, PT, CEA2 #### [facility] [address] [place] [address] #### B2GPM, B2GPA, B2GPG #### [address] LDHon 10-23-2021 LDH 136 U/L Normal 120-246 [facility] Comment on above: Performed By: #### C A19O, LUPUS #### The performing lab is in the report. #### NSEO #### [facility] #### HEMDF, LDH3, BMP3, MG3, PT, CEA2 #### [facility] [address] [place] [address] #### B2GPM, B2GPA, B2GPG #### [facility] [address] [place] [address] Lactate Dehydrogenaseon - LD 136 U/L 120 - 246 U/L [facility] Work Phone: MRI ABDOMEN WO CONTRASTon Patient Name: ANDREW SIFUENTES Magnetic Resonance Imaging ACCESSION EXAM DATE/TIME PROCEDURE ORDERING PROVIDER [id number] 10/23/2021 11:08 EDT MRI Abdomen w/o Contrast DONOVAN SRIVASTAVAW CPT code 85322 Reason For Exam (MRI Abdomen w/o Contrast) [...] Imaging ACCESSION EXAM DATE/TIME PROCEDURE ORDERING PROVIDER [id number] 10/23/2021 11:08 EDT MRI Abdomen w/o Contrast WING SRIVASTAVA CPT code 00627 Reason For Exam (MRI Abdomen w/o Contrast) [...] CONTRASTOrder ed By: Unknown Result on 10-23-2021 [facility]/o Contraston 0 10-23-2021 MRI Abdomen w/o Contrast Patient Name: [facility] [id number] Magnetic Resonance Imaging ACCESSION EXAM DATE/TIME PROCEDURE ORDERING PROVIDER [id number] 10/23/2021 11:08 EDT MRI Abdomen w/o Contrast WING SRIVASTAVA CPT code 15951 Reason For Exam (MRI Abdomen w/o Contrast) [...] Transcribed Date and Time: 10/23/2021 4:36 Normal [facility] Magnesiumon 10-23-2021 Magnesium [Mass/Vol] 2.1 mg/dL Normal 1.6-2.3 [facility] Comment on above: Performed By: #### C A19O, LUPUS #### The performing lab is in the report. #### NSEO #### [facility] #### HEMDF, LDH3, BMP3, MG3, PT, CEA2 #### [facility] [address] [place] [address] #### B2GPM, B2GPA, B2GPG #### [address] [address] Magnesium [Mass/Vol] 2.1 mg/dL 1.6 - 2 .3 mg/dL [facility] Work Phone: No Panel Informationon 10-23 Test Performed by [facility], [address] [place], [place] [id number] [place] [address] LAB [facility] Work Phone: Prothrombin Timeon 2 INR 1.1 Normal 0.9-1.1 [facility] Comment on above: Result Comment: Harry [...] HEMDF, LDH3, BMP3, MG3, PT, CEA2 #### [address] [place] [address] #### B2GPM, B2GPA, B2GPG #### [address] [address] PT Coag (PPP) [Time] 12.2 s High 9.0-12.0 [facility] Comment on above: Result Comment: . Performed By: #### C A19O, LUPUS #### The performing lab is in the report. #### NSEO #### [facility] #### HEMDF, LDH3, BMP3, MG3, PT, CEA2 #### [address] [place] [address] #### B2GPM, B2GPA, B2GPG #### [address] [address] Protime-INRon 10-23-2021 INR Coag (Bld) [Relative time] [...] High 9.0 - 12.0 s [facility] Work Phone: Comment on above: . Test Performed by [facility], [address] [place] [address] [facility] LAB [facility] Work Phone: Basic Metabolic Panelon 10-05-2021 Calcium [Mass/Vol] 8.9 mg/dL Normal 8.4-10.4 [facility] Comment on above: Performed By: #### P T #### [facility] [address] [place] [address] Glucose [Mass/Vol] 110 mg/dL High 70-100 [facility] Comment on above: Performed By: #### P T #### [facility] [address] [place] [address] Urea nitrogen [Mass/Vol] 14 mg/dL Normal 7-17 [facility] Comment on above: Performed By: #### P T #### [facility] [address] [place] [address] Anion gap [Moles/Vol] 7 mmol/L Normal 3-13 [facility] Comment on above: Performed By: #### P T #### [facility] [address] [place] [address] CO2 [Moles/Vol] 26 mmol/L Normal 22-30 [facility] Comment on above: Performed By: #### P T #### [facility] [address] [place] [address] Creatinine [Mass/Vol] 0.71 mg/dL Normal 0.52-1.25 [facility] Comment on above: Performed By: #### P T #### [facility] [address] [place] [address] eGFR OTHER > 90.0 Normal >60 [facility] Comment on above: Result Comment: KDIG [...] secretion. Performed By: #### P T #### [facility] [address] [place] [address] GFR/1.73 sq M.predicted among blacks MDRD (S/P/Bld) [Vol rate/Area] mL/min/{1.73_m2} Normal >60 [facility] Comment on above: Performed By: #### P T #### [facility] [address] [place] [address] Potassium [Moles/Vol] 3.8 mmol/L Normal 3.5-5.1 [facility] Comment on above: Performed By: #### P T #### [facility] [address] [place] [address] Chloride [Moles/Vol] 106 mmol/L Normal 98-107 [facility] Comment on above: Performed By: #### P T #### [facility] [address] [place] [address] Sodium [Moles/Vol] 139 mmol/L Normal 135-145 [facility] Comment on above: Performed By: #### P T #### [place] [address] [place] [address] Anion gap [Moles/Vol] 7 mmol/L 3 - 13 mmol/L [facility] Calcium [Mass/Vol] 8.9 mg/dL 8.4 - 10. 4 mg/dL [facility] Chloride [Moles/Vol] 106 mmol/L 98 - 10 7 mmol/L [facility] CO2 [Moles/Vol] 26 mmol/L 22 - 30 mmol/L [facility] Creatinine [Mass/Vol] 0.71 mg/dL 0.52 - 1.25 mg/dL [facility] EGFR IF NonAfrican Montenegrin >90.0 >60 mL/min [facility] Comment on above: [...] 10*3/uL [facility] Test Performed by [facility], [address] [place], [place] [id number] [place] [address] [address] [facility] Pelvis Wo Umair johnston 10-22-2021 Patient Name: ANDREW SIFUENTES Computed Tomography ACCESSION EXAM DATE/TIME PROCEDURE ORDERING PROVIDER [id number] 10/22/2021 13:[address] Abdomen/Pelvis (No WING SRIVASTAVA PO, No IV) CPT code 43694 Reason For Exam (CT Abdomen/Pelvis (No PO, [...] Transcribed Date and Time: 10/22/2021 2:37 [facility] RAD Humphrey Melton MD - 10/22/2021 Patient Name: ANDREW SIFUENTES Computed Tomography ACCESSION EXAM DATE/TIME PROCEDURE ORDERING PROVIDER [id number] 10/22/2021 13:[address] Abdomen/Pelvis (No SRIVASTAVA, WING PO, No IV) CPT code 08168 Reason For Exam (CT Abdomen/Pelvis (No PO, [...] Tomography ACCESSION EXAM DATE/TIME PROCEDURE ORDERING PROVIDER [id number] 10/22/2021 13:[address] Abdomen/Pelvis (No SRIVASTAVA, WING PO, No IV) CPT code 38287 Reason For Exam (CT Abdomen/Pelvis (No PO, [...] Transcribed Date and Time: 10/22/2021 2:37 Normal [facility] Hemogram w/ Autodiffon 10-22 Abs Baso Cnt 0.1 10*3/uL Normal 0.0-0.2 [facility] Comment on above: Performed By: #### P T #### [facility] [address] [place] [address] Abs Neutrophile Cnt 6.0 10*3/uL Normal 1.8-7.0 [facility] Comment on above: Performed By: #### P T #### [facility] [address] [place] [address] Basophils/100 WBC (Bld) 1.0 % Normal 0.0-2.0 [facility] Comment on above: Performed By: #### P T #### [facility] [address] [place] [address] Eosinophils (Bld) [#/Vol] 0.3 10*3/uL Normal 0.0-0.5 [facility] Comment on above: Performed By: #### P T #### [facility] [address] [place] [address] Eosinophils/100 WBC (Bld) 3.0 % Normal 1.0-6.0 [facility] Comment on above: Performed By: #### P T #### [facility] [address] [place] [address] Erythrocyte distribution width (RBC) [Ratio] 17.1 % High 11.5-14.5 [facility] Comment on above: Performed By: #### P T #### [facility] [address] [place] [address] Granulocytes/100 WBC (Bld) 64.1 % Normal 40.0-80.0 [facility] Comment on above: Performed By: #### P T #### [facility] [address] [place] [address] Hematocrit (Bld) [Volume fraction] 33.4 % Low 40.0-52.0 [facility] Comment on above: Performed By: #### P T #### [facility] [address] [place] [address] Hemoglobin (Bld) [Mass/Vol] 10.9 g/dL Low 13.0-18.0 [facility] Comment on above: Performed By: #### P T #### [facility] [address] [place] [address] Lymphocytes (Bld) [#/Vol] 2.5 10*3/uL Normal 1.0-4.3 [facility] Comment on above: Performed By: #### P T #### [facility] [address] [place] [address] Lymphocytes/100 WBC (Bld) 26.3 % Normal 20.0-40.0 [facility] Comment on above: Performed By: #### P T #### [place] [address] [place] [address] MCH (RBC) [Entitic mass] 28.2 pg Normal 26.0-34.0 [facility] Comment on above: Performed By: #### P T #### [place] [address] [place] [address] MCHC 32.7 % Normal 32.0-36.0 [facility] Comment on above: Performed By: #### P T #### [facility] [address] [place] [address] MCV (RBC) [Entitic vol] 86.3 fL Normal 80.0-98.0 [facility] Comment on above: Performed By: #### P T #### [place] [address] [place] [address] Monocytes (Bld) [#/Vol] 0.5 10*3/uL Normal 0.0-0.8 [facility] Comment on above: Performed By: #### P T #### [facility] [address] [place] [address] Monocytes/100 WBC (Bld) 5.6 % Normal 2.0-10.0 [facility] Comment on above: Performed By: #### P T #### [place] [address] [place] [address] Platelet mean volume (Bld) [Entitic vol] 7.6 fL Normal 7.4-12.4 [facility] Comment on above: Result Comment: MPV is a calculated measurement using platelet volume ratio. Performed By: #### P T #### [place] [address] [place] [address] Platelets (Bld) [#/Vol] 369 10*3/uL Normal 140-440 [facility] Comment on above: Performed By: #### P T #### [facility] [address] [place] [address] RBC (Bld) [#/Vol] 3.87 10*6/uL Low 4.40-5.90 [facility] Comment on above: Performed By: #### P T #### [facility] [address] [place] [address] WBC (Bld) [#/Vol] 9.4 10*3/uL Normal 3.6-10.7 [facility] Comment on above: Performed By: #### P T #### [facility] [address] [place] [address] Magnesiumon 10-22-2021 Magnesium [Mass/Vol] 2.0 mg/dL Normal 1.6-2.3 [facility] Comment on above: Performed By: #### P T #### [facility] [address] [place] [address] Magnesium [Mass/Vol] 2.0 mg/dL 1.6 - 2 .3 mg/dL [facility] No Panel Informationon 10-22 Radiology Study observation (narrative) [facility] Work Phone: Test Performed by [facility], [address] [place], [place] [address] [facility] LAB [facility] Prothrombin Timeon 2 INR 1.1 Normal 0.9-1.1 [facility] Comment on above: Result Comment: Harry [...] HEMDF, LDH3, BMP3, MG3, PT, CEA2 #### [facility] [address] [place] [address] #### B2GPM, B2GPA, B2GPG #### [facility] [address] [place] [address] PT Coag (PPP) [Time] 11.8 s Normal 9.0-12.0 [facility] Comment on above: Result Comment: . Performed By: #### C A19O, LUPUS #### The performing lab is in the report. #### NSEO #### [facility] #### HEMDF, LDH3, BMP3, MG3, PT, CEA2 #### [facility] [address] [place] [address] #### B2GPM, B2GPA, B2GPG #### [facility] [address] [place] [address] Protime-INRon 10-22-2021 INR Coag (Bld) [Relative time] [...] s 9.0 - 12.0 s [facility] Work Phone: Comment on above: . Test Performed by [facility] [email or web address] [facility], [address] [place], [place] [address] [facility] LAB [facility] Work Phone: VL Ankle Art Brachial Indice s Extremity Bilateralon 10-22-2021 [facility] Ankle Brachial Index Report Patient DO GurpreetB: 1950 Study 10/21/2021 Name: Andrew Gonzalez (71yrs) Date: Age: 71 Account: [id number] Gender: M Loc: 444W BP: Ordering Physician: Shruthi Malik Route Sales Manager: Rody Cross RDMS, RVT Interpreting Physician: Carina Call Location: [facility] Indications: Foot wounds. Originally ordered as a full PVR. Ordering SCADA OPERATOR had to modify the order to [...] supine position. Images were obtained using a [employer] vascular ultrasound machine. Arterial pressure indices: + [...] electronically signed by Carina Call 10/22/2021 13:21 [facility] Carina Call MD - 10/22/2021 [facility] Ankle Brachial Index Report Patient RADHA Sifuentes: 1950 Study 10/21/2021 Name: Andrew Gonzalez (71yrs) Date: Age: 71 Account: [id number] Gender: M Loc: 444W BP: Ordering Physician: Shruthi Malik Route Sales Manager: Rody Cross RDMS, RVT Interpreting Physician: Carina Call Location: [facility] Indications: Foot wounds. Originally ordered as a full PVR. Ordering SCADA OPERATOR had to modify the order to [...] supine position. Images were obtained using a [employer] vascular ultrasound machine. Arterial pressure indices: + [...] 10/22/2021 13:21 [facility] Work Phone: [facility] Work Phone: Basic Metabolic Panelon 10-05 Calcium [Mass/Vol] 9.1 mg/dL Normal 8.4-10.4 [facility] Comment on above: Performed By: #### C OVAG #### [facility] [employer] [address] [place] [address] Anion gap [Moles/Vol] 6 mmol/L Normal 3-13 [facility] Comment on above: Performed By: #### C OVAG #### [facility] [email or web address] [facility] [address] [place] [address] CO2 [Moles/Vol] 29 mmol/L Normal 22-30 [facility] Comment on above: Performed By: #### C OVAG #### [facility] [address] [place] [address] Creatinine [Mass/Vol] 0.90 mg/dL Normal 0.52-1.25 [facility] Comment on above: Performed By: #### C OVAG #### [facility] [address] [place] [address] GFR/1.73 sq M.predicted among blacks MDRD (S/P/Bld) [Vol rate/Area] mL/min/{1.73_m2} Normal >60 [facility] Comment on above: Performed By: #### C OVAG #### [facility] [address] [place] [address] GFR/1.73 sq M.predicted among non-blacks MDRD (S/P/Bld) [Vol rate/Area] 86.6 mL/min/{1.73_m2} Normal >60 [facility] Comment on above: Result Comment: KDIG [...] secretion. Performed By: #### C OVAG #### [facility] [address] [place] [address] Glucose [Mass/Vol] 106 mg/dL High 70-100 [facility] Comment on above: Performed By: #### C OVAG #### [facility] [address] [place] [address] Urea nitrogen [Mass/Vol] 18 mg/dL High 7-17 [facility] Comment on above: Performed By: #### C OVAG #### [facility] [address] [place] [address] Chloride [Moles/Vol] 105 mmol/L Normal 98-107 [facility] Comment on above: Performed By: #### C OVAG #### [facility] [address] [place] [address] Potassium [Moles/Vol] 4.3 mmol/L Normal 3.5-5.1 [facility] Comment on above: Performed By: #### C OVAG #### [facility] [address] [place] [address] Sodium [Moles/Vol] 139 mmol/L Normal 135-145 [facility] Comment on above: Performed By: #### C OVAG #### [facility] [address] [place] [address] Anion gap [Moles/Vol] 6 mmol/L 3 - 13 mmol/L [facility] Calcium [Mass/Vol] 9.1 mg/dL 8.4 - 10. 4 mg/dL [facility] Chloride [Moles/Vol] 105 mmol/L 98 - 10 7 mmol/L [facility] CO2 [Moles/Vol] 29 mmol/L 22 - 30 mmol/L [facility] Creatinine [Mass/Vol] 0.9 mg/dL 0.52 - 1.25 mg/dL [facility] EGFR IF NonAfrican [place] 86.6 mL/min >60 [facility] Comment on above: KDIGO [...] mg/dL [facility] Test Performed by [facility], [address] [place], [place], [place] [id number] [place] [address] LAB [facility] C-Reactive Proteinon 022 CRP [Mass/Vol] 33.5 mg/L High 0.0-9.9 [facility] Comment on above: Result Comment: . Performed By: #### P T #### [facility] [address] [place] [address] CRP [Mass/Vol] 33.5 mg/L High 0.0 - 9.9 mg/L [facility] Comment on above: . Interpretation and review of laboratory results Abnormal [facility] Test Performed by [facility], [address] [place], [address] LAB [facility] CR Calcaneus 2+ Views Lefton 10-21-2021 CR Calcaneus 2+ Views Left Patient Name: [id number] Diagnostic Radiology ACCESSION EXAM DATE/TIME PROCEDURE ORDERING PROVIDER [id number] 10/21/2021 15:30 EDT CR Calcaneus 2+ Views [id number] -SHRUTHI MALIK Left CPT code 49870 Reason For Exam (CR Calcaneus 2+ Views [...] Transcribed Date and Time: 10/21/2021 4:33 Normal [facility] CR Chest 1 View Frontalon CR Chest 1 View Frontal Patient Name: ANDREW SIFUENTES Diagnostic Radiology ACCESSION EXAM DATE/TIME PROCEDURE ORDERING PROVIDER [id number] 10/21/2021 08:16 EDT CR Chest 1 View Frontal [id number] MAY BOGGS CPT code 69048 Reason For Exam (CR Chest 1 View [...] Transcribed Date and Time: 10/21/2021 8:33 Normal [facility] D-Dimer, Innovanceon 022 D-Dimer, Innovance 1.51 mg/L High <0.19-0.50 [facility] Comment on above: Result Comment: Inno saba D-Dimer values of <0.50 mg/L FEU can be used in combination with a pre-test probability model (e.g. Well's) to exclude pulmonary embolism (PE) disease, as well as an aid in the diagnosis of deep vein thrombosis (DVT). Performed By: #### P T #### [facility] [address] [place] [address] D-Dimer, Quantitativeon 10-05 D-Dimer, Quant 1.51 mg/L High <0.19 - 0.50 [facility] Comment on above: [facility] D-Dimer va lues of <0.50 mg/L FEU can be used in combination with a pre-test probability model (e.g. Well's) to exclude pulmonary embolism (PE) disease, as well as an aid in the diagnosis of deep vein thrombosis (DVT). Interpretation and review of laboratory results Abnormal [facility] Test Performed by [facility], [address], [place], [place] [address] [facility] ED Provider Noteon 2 ED Provider Note [facility] ED EMERGENCY DEPARTMENT ENCOUNTER Pt Name: [...] (HCC) ? Kidney stone ? Neuropathy ? 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 Attends [employer] Services: Not on file ? Active [...] LUNGS: Respirations (more content not included)... Normal [facility] [email or web address] [facility] Hemogramon 10-21-2021 Erythrocyte distribution width (RBC) [Ratio] 17.3 % High 11.5-14.5 [facility] Comment on above: Performed By: #### C OVAG #### [facility] [address] [place] [address] Hematocrit (Bld) [Volume fraction] 33.6 % Low 40.0-52.0 [facility] Comment on above: Performed By: #### C OVAG #### [facility] [address] [place] [address] Hemoglobin (Bld) [Mass/Vol] 10.9 g/dL Low 13.0-18.0 [facility] Comment on above: Performed By: #### C OVAG #### [facility] [address] [place] [address] MCH (RBC) [Entitic mass] 27.8 pg Normal 26.0-34.0 [facility] Comment on above: Performed By: #### C OVAG #### [facility] [address] [place] [address] MCHC 32.5 % Normal 32.0-36.0 [facility] Comment on above: Performed By: #### C OVAG #### [facility] [address] [place] [address] MCV (RBC) [Entitic vol] 85.6 fL Normal 80.0-98.0 [facility] Comment on above: Performed By: #### C OVAG #### [facility] [address] [place] [address] Platelet mean volume (Bld) [Entitic vol] 7.7 fL Normal 7.4-12.4 [facility] Comment on above: Result Comment: MPV is a calculated measurement using platelet volume ratio. Performed By: #### C OVAG #### [facility] [address] [place] [address] Platelets (Bld) [#/Vol] 404 10*3/uL Normal 140-440 [facility] Comment on above: Performed By: #### C OVAG #### [facility] [address] [place] [address] RBC (Bld) [#/Vol] 3.93 10*6/uL Low 4.40-5.90 [facility] Comment on above: Performed By: #### C OVAG #### [facility] [address] [place] [address] WBC (Bld) [#/Vol] 11.6 10*3/uL High 3.6-10.7 [facility] Comment on above: Performed By: #### C OVAG #### [facility] [address] [place] [address] Hemogram (CBC)on 10-21-2021 Hematocrit (Bld) [Volume fraction] 33.6 % Low 40.0 - 52.0 % [facility] Hemoglobin (Bld) [Mass/Vol] 10.9 g/dL Low 13.0 - 18.0 g/dL [facility] Interpretation and review of laboratory results [...] vol] 7.7 fL 7.4 - 12.4 fL [facility] Comment on above: MPV is a calculated measurement using platelet volume ratio. Platelets (Bld) [#/Vol] 404 10*3/uL 140 - 440 10*3/uL [facility] RBC (Bld) [#/Vol] 3.93 10*6/uL Low 4.40 - 5.9 0 10*6/uL [facility] WBC (Bld) [#/Vol] 11.6 10*3/uL High 3.6 - 10.7 10*3/uL [facility] Test Performed by [facility], [address] [place], [place] [address] [facility] LUNG VENT/PERFUSION (VQ)o n 10-21-2021 Patient Name: ANDREW SIFUENTES Nuclear Medicine ACCESSION EXAM DATE/TIME PROCEDURE ORDERING PROVIDER [id number] 10/21/2021 07:55 EDT NM Pulmonary Perfusion [id number] -MAY CASH w/ Vent Aerosol CPT code 61454 A9567 Reason For Exam (NM Pulmonary Perfusion [...] Transcribed Date and Time: 10/21/2021 8:49 [facility] RAD Henry Harvey MD - 10/21/2021 Patient Name: ANDREW SIFUENTES Nuclear Medicine ACCESSION EXAM DATE/TIME PROCEDURE ORDERING PROVIDER [id number] 10/21/2021 07:55 EDT NM Pulmonary Perfusion [id number] -MAY CASH w/ Vent Aerosol CPT code 91599 A9567 Reason For Exam (NM Pulmonary Perfusion [...] (VQ)O rdered By: Henry Harvey on 10-21-2021 [facility] Work Phone: NM Pulmonary Perfusion w/ Ve nt Aerosol or Gason 10-21-2021 NM Pulmonary Perfusion w/ Vent Aerosol or Gas Patient Name: ANDREW SIFUENTES Nuclear Medicine ACCESSION EXAM DATE/TIME PROCEDURE ORDERING PROVIDER [id number] 10/21/2021 07:55 EDT NM Pulmonary Perfusion [id number] MAY BOGGS w/ Vent Aerosol CPT code 62197 A9567 Reason For Exam (NM Pulmonary Perfusion [...] and Time: 10/21/2021 8:49 Normal [facility] No Panel Informationon 10-21 Radiology Study observation (narrative) [facility] Work Phone: Prothrombin Timeon 2 INR 1.1 Normal 0.9-1.1 [facility] Comment on above: Result Comment: Harry [...] Infarction Performed By: #### C OVAG #### [facility] [address] [place] [address] PT Coag (PPP) [Time] 11.5 s Normal 9.0-12.0 [facility] Comment on above: Result Comment: . Performed By: #### C OVAG #### [facility] [address] [place] [address] Protime-INRon 10-21-2021 INR Coag (Bld) [Relative time] [...] s 9.0 - 12.0 s [facility] Comment on above: . Test Performed by [facility], [address] LAB [facility] Retic Count(%)on 10-21-2021 Retic Count(%) 1.6 Normal [facility] Comment on above: Result Comment: [place] orn < 5% Adults 0.5 - 1.5% Performed By: #### P T #### [facility] [address] [place] [address] Reticulocyteson 10-21-[address] Pct 1.6 [facility] Comment on above: [place] < 5% Adults 0.5 - 1.5% Test Performed by [facility], [address] LAB [facility] Sed Rateon 10-21-2021 Sed Rate 63 mm/h High 0-10 [facility] Comment on above: Performed By: #### P T #### [facility] [address] [place] [address] Sedimentation Rateon 022 Interpretation and review of laboratory results Abnormal [facility] Sed Rate 63 mm/h High 0 - 10 mm/h [facility] Test Performed by [facility], [address], [place] [address] [facility] VL CARMELLA Upr/L Extremity Art 1 -2 Levelson 10-21-2021 VL CARMELLA Upr/L Extremity Art 1-2 Levels Patient Name: ANDREW SIFUENTES Ultrasound ACCESSION EXAM DATE/TIME PROCEDURE ORDERING PROVIDER [id number] 10/21/2021 16:12 EDT VL Upr/L Extremity Art [id number] -SHRUTHI MALIK 1-2 Levels CPT code 96195 Reason For Exam (VL Upr/L Extremity Art 1-2 Levels) both lower legs CARMELLA for both feet wounds. Report [facility] Ankle Brachial Index Report Patient Gurpreet : 1950 Study 10/21/2021 Name: Andrew Gonzalez (71yrs) Date: Age: 71 Account: [id number] Gender: M Loc: 444W BP: Ordering Physician: Shruthi Malik Route Sales Manager: Rody Cross RDMS, RVT Interpreting Physician: Carina Call Location: [facility] Indications: Foot wounds. Originally ordered as a full PVR. Ordering SCADA OPERATOR had to modify the order to [...] supine position. Images were obtained using a Tamions vascular ultrasound machine. Arterial pressure indices: + [...] CARINA HENNESSY Cardiovascular ACCESSION EXAM DATE/TIME PROCEDURE [id number] 10/21/2021 16:12 EDT VL Upr/L Extremity Art 1-2 Levels CPT code 21695 Reason For Exam (VL Upr/L Extremity Art 1-2 Levels) both lower legs CARMELLA for both feet wounds. Report [facility] Ankle Brachial Index Report Patient DO GurpreetB: 1950 Study 10/21/2021 Name: Andrew Gonzalez (71yrs) Date: Age: 71 Account: [id number] Cardiovascular Report Gender: M Loc: 444W BP: Ordering Physician: Shruthi Malik Route Sales Manager: Rody Cross RDMS, RVT Interpreting Physician: Carina Call Location: [facility] Indications: Foot wounds. Originally ordered as a full PVR. Ordering SCADA OPERATOR had to modify the order to [...] in th (more content not included)... Normal [facility] VL LOWER EXTREMITY BILATERAL VENOUS DUPLEXon 10-21-2021 [facility] Lower Extremity Venous Duplex Report Patient DO GurpreetB: 1950 Study 10/21/2021 Name: Andrew Gonzalez (71yrs) Date: Age: 71 Account: [id number] Gender: M Loc: 444 BP: Ordering Physician: May Cash Route Sales Manager: Rody Cross RDMS, RVT Interpreting Physician: Carina [...] supine position. Images were obtained using a Tamions vascular ultrasound machine. Venous flow and imaging: [...] +-------- --------+ + (more content not included)... [facility] CARDIOLOG[facility] Carina Call MD - 10/21/2021 [facility] Lower Extremity Venous Duplex Report Patient DO GurpreetB: 1950 Study 10/21/2021 Name: Andrew Gonzalez (71yrs) Date: Age: 71 Account: [id number] Gender: M Loc: 444 BP: Ordering Physician: May Cash Route Sales Manager: Rody Cross RDMS, RVT Interpreting Physician: Carina [...] supine position. Images were obtained using a Tamions vascular ultrasound machine. Venous flow and imaging: [...] + + +----- (more content not included)... [facility] Work Phone: VL LOWER EXTREMITY BILATERAL VENOUS DUPLEXOrdered By: Carina Call on 10-21-2021 [facility] Work Phone: VL Venous Duplex US Lower Ex t Bilateralon 10-21-2021 VL Venous Duplex US Lower Ext Bilateral Patient Name: ANDREW SIFUENTES Ultrasound ACCESSION EXAM DATE/TIME PROCEDURE ORDERING PROVIDER [id number] 10/21/2021 09:53 EDT VL Venous Duplex US [id number] -MAY CASH Lower Ext Bilateral CPT code 24682 Reason For Exam (VL Venous Duplex US Lower Ext Bilateral) bilateral sqwelling redness Report [facility] Lower Extremity Venous Duplex Report Patient DO GurpreetB: 1950 Study 10/21/2021 Name: Andrew Gonzalez (71yrs) Date: Age: 71 Account: [id number] Gender: M Loc: 444 BP: Ordering Physician: May Cash Route Sales Manager: Rody Cross RDMS, RVT Interpreting Physician: Carina [...] supine position. Images were obtained using a Tamions vascular ultrasound machine. Venous flow and imaging: [...] + + (more content not included)... [facility] CALCANEUS LEFT (MIN 2 VIE WS)on 10-21-2021 Patient Name: ANDREW SIFUENTES Diagnostic Radiology ACCESSION EXAM DATE/TIME PROCEDURE ORDERING PROVIDER [id number] 10/21/2021 15:30 EDT CR Calcaneus 2+ Views [id number] -SHRUTHI MALIK Left CPT code 86095 Reason For Exam (CR Calcaneus 2+ Views [...] Time: 10/21/2021 4:33 [facility]EN[facility] RAD Carla Wogn MD - 10/21/2021 Patient Name: ANDREW [facility]ENTES [id number] Diagnostic Radiology ACCESSION EXAM DATE/TIME PROCEDURE ORDERING PROVIDER [id number] 10/21/2021 15:30 EDT CR Calcaneus 2+ Views [id number] -SHRUTHI MALIK Left CPT code 38694 Reason For Exam (CR Calcaneus 2+ Views [...] Radiology ACCESSION EXAM DATE/TIME PROCEDURE ORDERING PROVIDER [id number] 10/21/2021 08:16 EDT CR Chest 1 View Frontal [id number] FOSTER CPT code 17619 Reason For Exam (CR Chest 1 View [...] Transcribed Date and Time: 10/21/2021 8:33 [facility] Venus Loyd MD - 10/21/2021 Patient Name: ANDREW SIFUENTES Diagnostic Radiology ACCESSION EXAM DATE/TIME PROCEDURE ORDERING PROVIDER [id number] 10/21/2021 08:16 EDT CR Chest 1 View Frontal [id number] CONTI CPT code 41281 Reason For Exam (CR Chest 1 View [...] RAMOS Transcribed Date and Time: 10/21/2021 8:33 [facility] Work Phone: XR Chest 1 VWOrdered By: Natalie oLyd on 10-21-2021 [facility] Work Phone: Basophil percentageon 2021 Chloride [Moles/Vol] 108 mmol/L 98-107 [facility] Work Phone: Glucose [Mass/Vol] 93 mg/dL 74-106 [facility] Work Phone: Potassium [Moles/Vol] 3.9 mmol/L 3.5-5.1 [facility] Work Phone: Sodium [Moles/Vol] 140 mmol/L 136-145 [facility] Work Phone: WBC (Bld) [#/Vol] 8.7 10*3/uL 4.4-11.0 [facility] Work Phone: [phone] Blood erythrocytes count (nu mber/volume)on 10-20-2021 RBC (Bld) [#/Vol] 3.63 10*6/uL 4.6-6.2 [facility] Work Phone: Blood hemoglobin measurement (mass/volume)on 10-20-2021 Hemoglobin (Bld) [Mass/Vol] 10.1 g/dL 13.0-16.5 [facility] Work Phone: Blood platelet mean volumeon 10-20-2021 Platelet mean volume (Bld) [Entitic vol] 9.8 fL 6.2-12.0 [facility] Work Phone: [phone] Determination of erythrocyte mean corpuscular volume (MCV)on 10-20-2021 MCV (RBC) [Entitic vol] 90.1 fL 80-94 [facility] Work Phone: Hematocrit Auto (Bld) [Volum e fraction]on 10-20-2021 Hematocrit (Bld) [Volume fraction] 32.7 % 40-54 [facility] Work Phone: Laboratory - Chemistry and C hemistry - challengeon 10-20-2021 CO2 [Moles/Vol] 25.0 mmol/L 21.0-32.0 [facility] Work Phone: Urea nitrogen/Creatinine [Mass ratio] 17.4 mg/mg 10-20 [facility] Work Phone: Laboratory - Hematology and Cell countson 10-20-2021 Erythrocyte distribution width (RBC) [Entitic vol] 52.1 fL 35.1-43.9 [facility] Work Phone: Erythrocyte distribution width (RBC) [Ratio] 15.6 % 11.6-14.6 [facility] Work Phone: MCH (RBC) [Entitic mass] 27.8 pg 27.0-32.0 [facility] Work Phone: MCHC Auto (RBC) [Mass/Vol]on 10-20-2021 MCHC (RBC) [Mass/Vol] 30.9 g/dL 32-36 [facility] Work Phone: No Panel Informationon 10-20 Estimated GFR (MDRD) Amer 133 mL/min >60 [facility] Work Phone: Comment on above: GFR Calc Estimated GFR (MDRD) Non-Af Amer 110 mL/min >60 [facility] Work Phone: Comment on above: Non- GFR Calc Platelets bldon 10-20-2021 Platelets (Bld) [#/Vol] 404 10*3/uL 150-450 [facility] Work Phone: Serum or plasma calcium oral urement (mass/volume)on 10-20-2021 Calcium [Mass/Vol] 9.1 mg/dL 8.5-10.1 [facility] Work Phone: Serum or plasma creatinine m easurement (mass/volume)on 10-20-2021 Creatinine [Mass/Vol] 0.75 mg/dL 0.70-1.30 [facility] Work Phone: Comment on above: The validity of the calculated GFR & GFRAA in patients over 70 years has not been determined. Clinical correlation is essential. Serum or plasma urea nitroge n measurement (mass/volume)on 10-20-2021 Urea nitrogen [Mass/Vol] 13 mg/dL 7-18 [facility] Work Phone: Thin prep Papanicolaou smear with manual screeningon 10-20-2021 Thin prep Papanicolaou smear with manual screening 7 5-15 [facility] Work Phone: CNPNon 10-17-2021 CNPN Normal [facility] Absolute lymphocyte counton 09-19-2021 Lymphocytes Auto (Unsp spec) [#/Vol] 1.74 10*3/uL 0.83-4.51 [facility] Work Phone: Basophil percentageon 2021 Basophils/100 WBC (Bld) 0.6 % 0-1 [facility] Work Phone: Bilirubin [Mass/Vol] 0.30 mg/dL 0.20-1.00 [facility] Work Phone: Comment on above: For patients on eltr ombopag therapy, use of Dimension [place] TBIL is not recommended. Chloride [Moles/Vol] 105 mmol/L 98-107 [facility] Work Phone: Eosinophils/100 WBC (Bld) 3.5 % 0-5 [facility] Work Phone: Glucose [Mass/Vol] 91 mg/dL 74-106 [facility] Work Phone: Neutrophils (Bld) [#/Vol] 4.2 10*3/uL 2.0-7.7 [facility] Work Phone: Neutrophils/100 WBC (Bld) 62.6 % 47-70 [facility] Work Phone: [phone] Potassium [Moles/Vol] 3.8 mmol/L 3.5-5.1 [facility] Work Phone: [phone] Protein [Mass/Vol] 6.3 g/dL 6.4-8.2 [facility] Work Phone: Sodium [Moles/Vol] 139 mmol/L 136-145 [facility] Work Phone: WBC (Bld) [#/Vol] 6.6 10*3/uL 4.4-11.0 [facility] r [facility] Work Phone: Blood erythrocytes count (nu mber/volume)on 09-19-2021 RBC (Bld) [#/Vol] 3.47 10*6/uL 4.6-6.2 [facility] Work Phone: Blood hemoglobin measurement (mass/volume)on 09-19-2021 Hemoglobin (Bld) [Mass/Vol] 10.2 g/dL 13.0-16.5 [facility] Work Phone: Blood lymphocytes/100 leukoc yteson 09-19-2021 Lymphocytes/100 WBC (Bld) 26.2 % 19-41 [facility] Work Phone: Blood monocytes/100 leukocyt eson 09-19-2021 Monocytes/100 WBC (Bld) 6.5 % 0-10 [facility] Work Phone: Blood platelet mean volumeon 09-19-2021 Platelet mean volume (Bld) [Entitic vol] 9.6 fL 6.2-12.0 [facility] Work Phone: Determination of erythrocyte mean corpuscular volume (MCV)on 09-19-2021 MCV (RBC) [Entitic vol] 94.8 fL 80-94 [facility] Work Phone: Hematocrit Auto (Bld) [Volum e fraction]on 09-19-2021 Hematocrit (Bld) [Volume fraction] 32.9 % 40-54 [facility] Work Phone: Laboratory - Chemistry and C hemistry - challengeon 09-19-2021 ALP [Catalytic activity/Vol] 109 U/L 45-117 [facility] Work Phone: ALT [Catalytic activity/Vol] 23 U/L 16-61 [facility] Work Phone: CO2 [Moles/Vol] 26.0 mmol/L 21.0-32.0 [facility] Work Phone: Globulin (S) [Mass/Vol] 3.5 g/dL 2.2-4.2 [facility] Work Phone: Urea nitrogen/Creatinine [Mass ratio] 15.3 mg/mg 10-20 [facility] Work Phone: Laboratory - Hematology and Cell countson 09-19-2021 Erythrocyte distribution width (RBC) [Entitic vol] 59.4 fL 35.1-43.9 [facility] Work Phone: Erythrocyte distribution width (RBC) [Ratio] 17.1 % 11.6-14.6 [facility] Work Phone: Immature granulocytes/100 WBC (Bld) 0.600 % 0.0-0.9 [facility] Work Phone: Comment on above: IG% - Immature Granu locytes (promyelocytes, myelocytes and metamyelocytes) > 1% indicates that a LEFT SHIFT is Present. MCH (RBC) [Entitic mass] 29.4 pg 27.0-32.0 [facility] Work Phone: Nucleated RBC/100 WBC (Bld) [Ratio] 0 % 0-5 [facility] Work Phone: MCHC Auto (RBC) [Mass/Vol]on 09-19-2021 MCHC (RBC) [Mass/Vol] 31.0 g/dL 32-36 [facility] Work Phone: No Panel Informationon 09-19 Estimated GFR (MDRD) Amer 175 mL/min >60 [facility] Work Phone: Comment on above: GFR Calc Estimated GFR (MDRD) Non-Af Amer 145 mL/min >60 [facility] Work Phone: Comment on above: Non- GFR Calc Platelets bldon 09-19-2021 Platelets (Bld) [#/Vol] 342 10*3/uL 150-450 [facility] Work Phone: Serum or plasma albumin oral urement (mass/volume)on 09-19-2021 Albumin [Mass/Vol] 2.8 g/dL 3.2-5.0 [facility] Work Phone: Serum or plasma albumin/glob ulin mass ratioon 09-19-2021 Albumin/Globulin [Mass ratio] 0.8 {ratio} 0.9-2.4 [facility] Work Phone: Serum or plasma calcium oral urement (mass/volume)on 09-19-2021 Calcium [Mass/Vol] 9.0 mg/dL 8.5-10.1 [facility] Work Phone: Serum or plasma creatinine m easurement (mass/volume)on 09-19-2021 Creatinine [Mass/Vol] 0.59 mg/dL 0.70-1.30 [facility] Work Phone: Comment on above: The validity of the calculated GFR & GFRAA in patients over 70 years has not been determined. Clinical correlation is essential. Serum or plasma urea nitroge n measurement (mass/volume)on 09-19-2021 Urea nitrogen [Mass/Vol] 9 mg/dL 7-18 [facility] Work Phone: Thin prep Papanicolaou smear with manual screeningon 09-19-2021 Thin prep Papanicolaou smear with manual screening 12 U/L 15-37 [facility] Work Phone: Thin prep Papanicolaou smear with manual screening 8 5-15 [facility] Work Phone: OPERATIVE NOon 08-22-2021 OPERATIVE NO Normal [facility] Basic metabolic 2000 panelon 08-19-2021 Anion gap [Moles/Vol] 10 mmol/L Normal 9-18 [facility] Comment on above: Order Comment: Speci men Type: BLOOD SPECIMENOrdering Facility: [facility] Address: [address] [place] [address] Performed By: #### 2 4321-2 ####[facility] LABORATORYCLIA [id number] [place] [address] [place] Calcium [Mass/Vol] 8.6 mg/dL Normal 8.5-10.2 [facility] Comment on above: Order Comment: Speci men Type: BLOOD SPECIMENOrdering Facility: [facility] Address: [address] [place] [address] Performed By: #### 2 4321-2 ####[facility] LABORATORYCLIA [id number] [place] [address] [place] Chloride [Moles/Vol] 99 mmol/L Normal 97-105 [facility] Comment on above: Order Comment: Speci men Type: BLOOD SPECIMENOrdering Facility: [facility] Address: [address] [place] [address] Performed By: #### 2 4321-2 ####[facility]ORATORYCLIA [id number] [place] [address] [place] CO2 [Moles/Vol] 29 mmol/L Normal 22-30 [facility] Comment on above: Order Comment: Speci men Type: BLOOD SPECIMENOrdering Facility: [facility] Address: [address] [place] [address] Performed By: #### 2 4321-2 ####[facility] LABORATORYCLIA [id number] [place] [address] [place] Creatinine [Mass/Vol] 0.58 mg/dL Low 0.73-1.22 [facility] Comment on above: Order Comment: Speci men Type: BLOOD SPECIMENOrdering Facility: [facility] Address: [address] [place] [address] Performed By: #### 2 4321-2 ####[facility]ORATORYCLIA [id number] [place] [address] [place] ESTIMATED GLOMERULAR FILTRATION RATE 106 mL/min/1.73m??? Normal >=60 [facility] Comment on above: Order Comment: Shira feldman Type: BLOOD SPECIMENOrdering Facility: [facility] Address: [address] [place] [address] Result Comment: Luzmaria mated Glomerular Filtration Rate [...] Performed By: #### 2 4321-2 ####[facility]ITAL[facility] [id number] [place] [address] [place] Glucose [Mass/Vol] 101 mg/dL High 74-99 [facility] Comment on above: Order Comment: Shira feldman Type: BLOOD SPECIMENOrdering Facility: [facility] Address: [address] [place] [address] Result Comment: The [place] [employer] (ADA) [...] 2 4321-2 ####[facility] LABORATORYCLIA [id number] [place] [id number] [place] Potassium [Moles/Vol] 3.5 mmol/L Low 3.7-5.1 [facility] Comment on above: Order Comment: Speci men Type: BLOOD SPECIMENOrdering Facility: [facility] Address: [address] [place] [address] Performed By: #### 2 4321-2 ####[facility] LABORATORYCLIA [id number] [address] STATES OF [facility] Sodium [Moles/Vol] 138 mmol/L Normal 136-144 [facility] Comment on above: Order Comment: Speci men Type: BLOOD SPECIMENOrdering Facility: [facility] Address: [address] [place] [address] Performed By: #### 2 4321-2 ####[facility] LABORATORYCLIA [id number] [address] STATES OF [facility] Urea nitrogen [Mass/Vol] 11 mg/dL Normal 9-24 [facility] Comment on above: Order Comment: Speci men Type: BLOOD SPECIMENOrdering Facility: [facility] Address: [address] [place] [address] Performed By: #### 2 4321-2 ####[facility] LABORATORYCLIA [id number] [address] STATES OF [facility] CASE MANAGEMon 08-19-2021 CASE MANAGEM Normal [facility] CBC W Auto Differential pane l (Bld)on 08-19-2021 Basophils (Bld) [#/Vol] 0.03 10*3/uL Normal <0.11 [facility] Comment on above: Order Comment: Speci men Type: BLOOD SPECIMENOrdering Facility: [facility] Address: [address] [place] [address] Performed By: #### 5 7021-8 ####[facility] LABORATORYCLIA [id number] [address] STATES [facility] Basophils/100 WBC (Bld) 0.4 % Normal [facility] Comment on above: Order Comment: Speci men Type: BLOOD SPECIMENOrdering Facility: [facility] Address: [address] [place] [address] Performed By: #### 5 7021-8 ####[facility]ORATORYCLIA [id number] [address] Differential cell count method Nom (Bld) Auto Normal [facility] Comment on above: Order Comment: Speci men Type: BLOOD SPECIMENOrdering Facility: [facility] Address: [address] [place] [address] Performed By: #### 5 7021-8 ####[facility]ORATORYCLIA [id number] [address] Eosinophils (Bld) [#/Vol] 0.24 10*3/uL Normal <0.46 [facility] Comment on above: Order Comment: Speci men Type: BLOOD SPECIMENOrdering Facility: [facility] Address: [address] [place] [address] Performed By: #### 5 7021-8 ####[facility] LABORATORYCLIA [id number] [address] Eosinophils/100 WBC (Bld) 3.1 % Normal [facility] Comment on above: Order Comment: Speci men Type: BLOOD SPECIMENOrdering Facility: [facility] Address: [address] [place] [address] Performed By: #### 5 7021-8 ####[facility] LABORATORYCLIA [id number] [address] Erythrocyte distribution width (RBC) [Ratio] 17.5 % High 11.5-15.0 [facility] Comment on above: Order Comment: Speci men Type: BLOOD SPECIMENOrdering Facility: [facility] Address: [address] [place] [address] Performed By: #### 5 7021-8 ####[facility] LABORATORYCLIA [id number] [address] Hematocrit (Bld) [Volume fraction] 30.2 % Low 39.0-51.0 [facility] Comment on above: Order Comment: Speci men Type: BLOOD SPECIMENOrdering Facility: [facility] Address: [address] [place] [address] Performed By: #### 5 7021-8 ####[facility]ORATORYCLIA [id number] [address] Hemoglobin (Bld) [Mass/Vol] 9.6 g/dL Low 13.0-17.0 [facility] Comment on above: Order Comment: Speci men Type: BLOOD SPECIMENOrdering Facility: [facility] Address: [address] [place] [address] Performed By: #### 5 7021-8 ####[facility]ORATORYCLIA [id number] [address] IMMATURE GRAN % 0.4 % Normal [facility] Comment on above: Order Comment: Speci men Type: BLOOD SPECIMENOrdering Facility: [facility] Address: [address] [place] [address] Performed By: #### 5 7021-8 ####[facility]ORATORYCLIA [id number] [address] IMMATURE GRAN ABS 0.03 k/uL Normal <0.10 [facility] Comment on above: Order Comment: Speci men Type: BLOOD SPECIMENOrdering Facility: [facility] Address: [address] [place] [address] Performed By: #### 5 7021-8 ####[facility] LABORATORYCLIA [id number] [address] [place] Lymphocytes (Bld) [#/Vol] 1.71 10*3/uL Normal 1.00-4.00 [facility] Comment on above: Order Comment: Speci men Type: BLOOD SPECIMENOrdering Facility: [facility] Address: [address] [place] [address] Performed By: #### 5 7021-8 ####[facility]ATORYCLIA [id number] [address] Lymphocytes/100 WBC (Bld) 22.2 % Normal [facility] Comment on above: Order Comment: Speci men Type: BLOOD SPECIMENOrdering Facility: [facility] Address: [address] [place] [address] Performed By: #### 5 7021-8 ####[facility] LABORATORYCLIA [id number] [address] MCH (RBC) [Entitic mass] 29.4 pg Normal 26.0-34.0 [facility] Comment on above: Order Comment: Speci men Type: BLOOD SPECIMENOrdering Facility: [facility] Address: [address] [place] [address] Performed By: #### 5 7021-8 ####[facility] LABORATORYCLIA [id number] [address] STATES [facility] MCHC (RBC) [Mass/Vol] 31.8 g/dL Normal 30.5-36.0 [facility] Comment on above: Order Comment: Speci men Type: BLOOD SPECIMENOrdering Facility: [facility] Address: [address] [place] [address] Performed By: #### 5 7021-8 ####[facility]ORATORYCLIA [id number] [address] MCV (RBC) [Entitic vol] 92.6 fL Normal 80.0-100.0 [facility] Comment on above: Order Comment: Speci men Type: BLOOD SPECIMENOrdering Facility: [facility] Address: [address] [place] [address] Performed By: #### 5 7021-8 ####[facility]ORATORYCLIA [id number] [address] Monocytes (Bld) [#/Vol] 0.50 10*3/uL Normal <0.87 [facility] Comment on above: Order Comment: Speci men Type: BLOOD SPECIMENOrdering Facility: [facility] Address: [address] [place] [address] Performed By: #### 5 7021-8 ####[facility] LABORATORYCLIA [id number] [place] [address] [place] Monocytes/100 WBC (Bld) 6.5 % Normal [facility] Comment on above: Order Comment: Speci men Type: BLOOD SPECIMENOrdering Facility: [facility] Address: [address] [place] [address] Performed By: #### 5 7021-8 ####[facility]ORATORYCLIA [id number] [place] [address] [place] Neutrophils (Bld) [#/Vol] 5.20 10*3/uL Normal 1.45-7.50 [facility] Comment on above: Order Comment: Speci men Type: BLOOD SPECIMENOrdering Facility: [facility] Address: [address] [place] [address] Performed By: #### 5 7021-8 ####[facility]ORATORYCLIA [id number] [address] [place] Neutrophils/100 WBC (Bld) 67.4 % Normal [facility] Comment on above: Order Comment: Speci men Type: BLOOD SPECIMENOrdering Facility: [facility] Address: [address] [place] [address] Performed By: #### 5 7021-8 ####[facility]ORATORYCLIA [id number] [place] [address] [place] Nucleated RBC (Bld) [#/Vol] 10*3/uL Normal <0.01 [facility] Comment on above: Order Comment: Speci men Type: BLOOD SPECIMENOrdering Facility: [facility] Address: [address] [place] [address] Performed By: #### 5 7021-8 ####[facility]ORATORYCLIA [id number] [place] [address] [place] Nucleated RBC/100 WBC (Bld) [Ratio] 0.0 /100 WBC Normal [facility] Comment on above: Order Comment: Speci men Type: BLOOD SPECIMENOrdering Facility: [facility] Address: [address] [place] [address] Performed By: #### 5 7021-8 ####[facility]ORATORYCLIA [id number] [address] Platelet mean volume (Bld) [Entitic vol] 8.9 fL Low 9.0-12.7 [facility] Comment on above: Order Comment: Speci men Type: BLOOD SPECIMENOrdering Facility: [facility] Address: [address] [place] [address] Performed By: #### 5 7021-8 ####[facility] LABORATORYCLIA [id number] [address] [place] Platelets (Bld) [#/Vol] 408 10*3/uL High 150-400 [facility] Comment on above: Order Comment: Speci men Type: BLOOD SPECIMENOrdering Facility: [facility] Address: [address] [place] [address] Performed By: #### 5 7021-8 ####[facility]ORATORYCLIA [id number] [address] [place] RBC (Bld) [#/Vol] 3.26 10*6/uL Low 4.20-6.00 [facility] Comment on above: Order Comment: Speci men Type: BLOOD SPECIMENOrdering Facility: [facility] Address: [address] [place] [address] Performed By: #### 5 7021-8 ####[facility] LABORATORYCLIA [id number] [address] [place] WBC (Bld) [#/Vol] 7.71 10*3/uL Normal 3.70-11.00 [facility] Comment on above: Order Comment: Speci men Type: BLOOD SPECIMENOrdering Facility: [facility] Address: [address] [place] [address] Performed By: #### 5 7021-8 ####[facility] LABORATORYCLIA [id number] [address] [place] CNDSon 08-19-2021 CNDS Normal [facility] CONSULT PROGon 08-19-2021 CONSULT PROG Normal [facility] THERAPY NTon 08-19-2021 THERAPY NT Normal [facility] Basic metabolic 2000 panelon 08-18-2021 Anion gap [Moles/Vol] 11 mmol/L Normal 9-18 [facility] Comment on above: Order Comment: Speci men Type: BLOOD SPECIMENOrdering Facility: [facility] Address: [address] [place] [address] Performed By: #### 2 4321-2 ####[facility]ORATORYCLIA [id number] [place] [address] [place] Calcium [Mass/Vol] 8.6 mg/dL Normal 8.5-10.2 [facility] Comment on above: Order Comment: Speci men Type: BLOOD SPECIMENOrdering Facility: [facility] Address: [address] [place] [address] Performed By: #### 2 4321-2 ####[facility]ORATORYCLIA [id number] [place] [address] [place] Chloride [Moles/Vol] 98 mmol/L Normal 97-105 [facility] Comment on above: Order Comment: Speci men Type: BLOOD SPECIMENOrdering Facility: [facility] Address: [address] [place] [address] Performed By: #### 2 4321-2 ####[facility]ORATORYCLIA [id number] [place] [address] [place] CO2 [Moles/Vol] 28 mmol/L Normal 22-30 [facility] Comment on above: Order Comment: Speci men Type: BLOOD SPECIMENOrdering Facility: [facility] Address: [address] [place] [address] Performed By: #### 2 4321-2 ####[facility]ORATORYCLIA [id number] [place] [address] [place] Creatinine [Mass/Vol] 0.56 mg/dL Low 0.73-1.22 [facility] Comment on above: Order Comment: Speci men Type: BLOOD SPECIMENOrdering Facility: [facility] Address: [address] [place] [address] Performed By: #### 2 4321-2 ####[facility]PITALIA [id number] [address] ESTIMATED GLOMERULAR FILTRATION RATE 107 mL/min/1.73m??? Normal >=60 [facility] Comment on above: Order Comment: Shira francia Type: BLOOD SPECIMENOrdering Facility: [facility] Address: [address] [place] [address] Result Comment: Luzmaria mated Glomerular Filtration Rate [...] Performed By: #### 2 4321-2 ####[facility] HOSPITALIA [id number] [place] [address] [place] Glucose [Mass/Vol] 113 mg/dL High 74-99 [facility] Comment on above: Order Comment: Johncara feldman Type: BLOOD SPECIMENOrdering Facility: [facility] Address: [address] [place] [address] Result Comment: The [place] [employer] (ADA) [...] 2 4321-2 ####[facility]ORATORYCLIA [id number] [place] [address] [place] Potassium [Moles/Vol] 3.5 mmol/L Low 3.7-5.1 [facility] Comment on above: Order Comment: Speci men Type: BLOOD SPECIMENOrdering Facility: [facility] Address: [address] [place] [address] Performed By: #### 2 4321-2 ####[facility]ORATORYCLIA [id number] [address] [place] Sodium [Moles/Vol] 137 mmol/L Normal 136-144 [facility] Comment on above: Order Comment: Speci men Type: BLOOD SPECIMENOrdering Facility: [facility] Address: [address] [place] [address] Performed By: #### 2 4321-2 ####[facility]ORATORYCLIA [id number] [address] STATES [facility] Urea nitrogen [Mass/Vol] 10 mg/dL Normal 9-24 [facility] Comment on above: Order Comment: Speci men Type: BLOOD SPECIMENOrdering Facility: [facility] Address: [address] [place] [address] Performed By: #### 2 4321-2 ####[facility]ORATORYCLIA [id number] [address] [place] CBC W Auto Differential pane l (Bld)on 08-18-2021 Basophils (Bld) [#/Vol] 10*3/uL Normal <0.11 [facility] Comment on above: Order Comment: Speci men Type: BLOOD SPECIMENOrdering Facility: [facility] Address: [address] [place] [address] Performed By: #### 5 7021-8 ####[facility]ORATORYCLIA [id number] [address] [place] Basophils/100 WBC (Bld) 0.3 % Normal [facility] Comment on above: Order Comment: Speci men Type: BLOOD SPECIMENOrdering Facility: [facility] Address: [address] [address] Performed By: #### 5 7021-8 ####[facility]ORATORYCLIA [id number] [address] Differential cell count method Nom (Bld) Auto Normal [facility] Comment on above: Order Comment: Speci men Type: BLOOD SPECIMENOrdering Facility: [facility] Address: [address] [place] [address] Performed By: #### 5 7021-8 ####[facility]ORATORYCLIA [id number] [address] [place] Eosinophils (Bld) [#/Vol] 0.37 10*3/uL Normal <0.46 [facility] Comment on above: Order Comment: Speci men Type: BLOOD SPECIMENOrdering Facility: [facility] Address: [address] [place] [address] Performed By: #### 5 7021-8 ####[facility]ORATORYCLIA [id number] [address] Eosinophils/100 WBC (Bld) 4.8 % Normal [facility] Comment on above: Order Comment: Speci men Type: BLOOD SPECIMENOrdering Facility: [facility] Address: [address] [place] [address] Performed By: #### 5 7021-8 ####[facility]ORATORYCLIA [id number] [address] Erythrocyte distribution width (RBC) [Ratio] 17.5 % High 11.5-15.0 [facility] Comment on above: Order Comment: Speci men Type: BLOOD SPECIMENOrdering Facility: [facility] Address: [address] [place] [address] Performed By: #### 5 7021-8 ####[facility]ORATORYCLIA [id number] [address] [place] Hematocrit (Bld) [Volume fraction] 30.2 % Low 39.0-51.0 [facility] Comment on above: Order Comment: Speci men Type: BLOOD SPECIMENOrdering Facility: [facility] Address: [address] [place] [address] Performed By: #### 5 7021-8 ####[facility]ORATORYCLIA [id number] [address] [facility] Hemoglobin (Bld) [Mass/Vol] 9.5 g/dL Low 13.0-17.0 [facility] Comment on above: Order Comment: Speci men Type: BLOOD SPECIMENOrdering Facility: [facility] Address: [address] [place] [address] Performed By: #### 5 7021-8 ####[facility]ORATORYCLIA [id number] [address] IMMATURE GRAN % 0.4 % Normal [facility] Comment on above: Order Comment: Speci men Type: BLOOD SPECIMENOrdering Facility: [facility] Address: [address] [place] [address] Performed By: #### 5 7021-8 ####[facility]ORATORYCLIA [id number] [address] IMMATURE GRAN ABS 0.03 k/uL Normal <0.10 [facility] Comment on above: Order Comment: Speci men Type: BLOOD SPECIMENOrdering Facility: [facility] Address: [address] [place] [address] Performed By: #### 5 7021-8 ####[facility]ORATORYCLIA [id number] [address] [place] Lymphocytes (Bld) [#/Vol] 1.85 10*3/uL Normal 1.00-4.00 [facility] Comment on above: Order Comment: Speci men Type: BLOOD SPECIMENOrdering Facility: [facility] Address: [address] [place] [address] Performed By: #### 5 7021-8 ####[facility]ORATORYCLIA [id number] [address] Lymphocytes/100 WBC (Bld) 23.8 % Normal [facility] Comment on above: Order Comment: Speci men Type: BLOOD SPECIMENOrdering Facility: [facility] Address: [address] [place] [address] Performed By: #### 5 7021-8 ####[facility]ORATORYCLIA [id number] [address] MCH (RBC) [Entitic mass] 29.5 pg Normal 26.0-34.0 [facility] Comment on above: Order Comment: Speci men Type: BLOOD SPECIMENOrdering Facility: [facility] Address: [address] [place] [address] Performed By: #### 5 7021-8 ####[facility]ORATORYCLIA [id number] [address] MCHC (RBC) [Mass/Vol] 31.5 g/dL Normal 30.5-36.0 [facility] Comment on above: Order Comment: Speci men Type: BLOOD SPECIMENOrdering Facility: [facility] Address: [address] [place] [address] Performed By: #### 5 7021-8 ####[facility]ORATORYCLIA [id number] [address] MCV (RBC) [Entitic vol] 93.8 fL Normal 80.0-100.0 [facility] Comment on above: Order Comment: Speci men Type: BLOOD SPECIMENOrdering Facility: [facility] Address: [address] [place] [address] Performed By: #### 5 7021-8 ####[facility]ORATORYCLIA [id number] [address] Monocytes (Bld) [#/Vol] 0.49 10*3/uL Normal <0.87 [facility] Comment on above: Order Comment: Speci men Type: BLOOD SPECIMENOrdering Facility: [facility] Address: [address] [place] [address] Performed By: #### 5 7021-8 ####[facility]ATORYCLIA [id number] [address] [place] Monocytes/100 WBC (Bld) 6.3 % Normal [facility] Comment on above: Order Comment: Speci men Type: BLOOD SPECIMENOrdering Facility: [facility] Address: [address] [place] [address] Performed By: #### 5 7021-8 ####[facility]ORATORYCLIA [id number] [place] [address] [place] Neutrophils (Bld) [#/Vol] 5.00 10*3/uL Normal 1.45-7.50 [facility] Comment on above: Order Comment: Speci men Type: BLOOD SPECIMENOrdering Facility: [facility] Address: [address] [place] [address] Performed By: #### 5 7021-8 ####[facility]ORATORYCLIA [id number] [address] Neutrophils/100 WBC (Bld) 64.4 % Normal [facility] Comment on above: Order Comment: Speci men Type: BLOOD SPECIMENOrdering Facility: [facility] Address: [address] [place] [address] Performed By: #### 5 7021-8 ####[facility]ORATORYCLIA [id number] [address] [place] Nucleated RBC (Bld) [#/Vol] 10*3/uL Normal <0.01 [facility] Comment on above: Order Comment: Speci men Type: BLOOD SPECIMENOrdering Facility: [facility] Address: [address] [place] [address] Performed By: #### 5 7021-8 ####[facility]ATORYCLIA [id number] [address] [place] Nucleated RBC/100 WBC (Bld) [Ratio] 0.0 /100 WBC Normal [facility] Comment on above: Order Comment: Speci men Type: BLOOD SPECIMENOrdering Facility: [facility] Address: [address] [place], [place] [address] Performed By: #### 5 7021-8 ####[facility]ORATORYCLIA [id number] [address] Platelet mean volume (Bld) [Entitic vol] 9.1 fL Normal 9.0-12.7 [facility] Comment on above: Order Comment: Speci men Type: BLOOD SPECIMENOrdering Facility: [facility] Address: [address] [place], [place] [address] Performed By: #### 5 7021-8 ####[facility]ORATORYCLIA [id number] [address] [place] Platelets (Bld) [#/Vol] 391 10*3/uL Normal 150-400 [facility] Comment on above: Order Comment: Speci men Type: BLOOD SPECIMENOrdering Facility: [facility] Address: [address] [place] [address] Performed By: #### 5 7021-8 ####[facility]ORATORYCLIA [id number] [place] [address] [place] RBC (Bld) [#/Vol] 3.22 10*6/uL Low 4.20-6.00 [facility] Comment on above: Order Comment: Speci men Type: BLOOD SPECIMENOrdering Facility: [facility] Address: [address] [place], [place] [address] Performed By: #### 5 7021-8 ####[facility]ORATORYCLIA [id number] [address] [place] WBC (Bld) [#/Vol] 7.76 10*3/uL Normal 3.70-11.00 [facility] Comment on above: Order Comment: Speci men Type: BLOOD SPECIMENOrdering Facility: [facility] Address: [address] [place] [address] Performed By: #### 5 7021-8 ####[facility]ORATORYCLIA [id number] [address] [place] CONSULT PROGon 08-18-2021 CONSULT PROG Normal [facility] CASE MANAGEMon 08-17-2021 CASE MANAGEM Normal [facility] CBC W Auto Differential pane l (Bld)on 08-17-2021 Basophils (Bld) [#/Vol] 0.04 10*3/uL Normal <0.11 [facility] Comment on above: Order Comment: Speci men Type: BLOOD SPECIMENOrdering Facility: [facility] Address: [address] [place] [address] Performed By: #### 5 7021-8 ####[facility]ORATORYCLIA [id number] [address] [place] Basophils/100 WBC (Bld) 0.5 % Normal [facility] Comment on above: Order Comment: Speci men Type: BLOOD SPECIMENOrdering Facility: [facility] Address: [address] [place] [address] Performed By: #### 5 7021-8 ####[facility]ORATORYCLIA [id number] [address] [place] Differential cell count method Nom (Bld) Auto Normal [facility] Comment on above: Order Comment: Speci men Type: BLOOD SPECIMENOrdering Facility: [facility] Address: [address] [place] [address] Performed By: #### 5 7021-8 ####[facility]ORATORYCLIA [id number] [place] [address] [place] Eosinophils (Bld) [#/Vol] 0.31 10*3/uL Normal <0.46 [facility] Comment on above: Order Comment: Speci men Type: BLOOD SPECIMENOrdering Facility: [facility] Address: [address] [place] [address] Performed By: #### 5 7021-8 ####[facility]ORATORYCLIA [id number] [address] [place] Eosinophils/100 WBC (Bld) 3.7 % Normal [facility] Comment on above: Order Comment: Speci men Type: BLOOD SPECIMENOrdering Facility: [facility] Address: [address] [place] [address] Performed By: #### 5 7021-8 ####[facility]ORATORYCLIA [id number] [address] Erythrocyte distribution width (RBC) [Ratio] 17.4 % High 11.5-15.0 [facility] Comment on above: Order Comment: Speci men Type: BLOOD SPECIMENOrdering Facility: [facility] Address: [address] [place] [address] Performed By: #### 5 7021-8 ####[facility]ORATORYCLIA [id number] [address] Hematocrit (Bld) [Volume fraction] 30.6 % Low 39.0-51.0 [facility] Comment on above: Order Comment: Speci men Type: BLOOD SPECIMENOrdering Facility: [facility] Address: [address] [place] [address] Performed By: #### 5 7021-8 ####[facility] LABORATORYCLIA [id number] [address] [place] Hemoglobin (Bld) [Mass/Vol] 9.6 g/dL Low 13.0-17.0 [facility] Comment on above: Order Comment: Speci men Type: BLOOD SPECIMENOrdering Facility: [facility] Address: [address] [place] [address] Performed By: #### 5 7021-8 ####[facility] LABORATORYCLIA [id number] [address] [place] IMMATURE GRAN % 0.2 % Normal [facility] Comment on above: Order Comment: Speci men Type: BLOOD SPECIMENOrdering Facility: [facility] Address: [address] [place] [address] Performed By: #### 5 7021-8 ####[facility] LABORATORYCLIA [id number] [address] IMMATURE GRAN ABS <0.03 Normal <0.10 [facility] Comment on above: Order Comment: Speci men Type: BLOOD SPECIMENOrdering Facility: [facility] Address: [address] [place] [address] Performed By: #### 5 7021-8 ####[facility] LABORATORYCLIA [id number] [address] [place] Lymphocytes (Bld) [#/Vol] 1.66 10*3/uL Normal 1.00-4.00 [facility] Comment on above: Order Comment: Speci men Type: BLOOD SPECIMENOrdering Facility: [facility] Address: [address] [place] [address] Performed By: #### 5 7021-8 ####[facility] LABORATORYCLIA [id number] [address] Lymphocytes/100 WBC (Bld) 19.9 % Normal [facility] Comment on above: Order Comment: Speci men Type: BLOOD SPECIMENOrdering Facility: [facility] Address: [address] [place] [address] Performed By: #### 5 7021-8 ####[facility] LABORATORYCLIA [id number] [address] MCH (RBC) [Entitic mass] 28.9 pg Normal 26.0-34.0 [facility] Comment on above: Order Comment: Speci men Type: BLOOD SPECIMENOrdering Facility: [facility] Address: [address] [place] [address] Performed By: #### 5 7021-8 ####[facility] LABORATORYCLIA [id number] [address] MCHC (RBC) [Mass/Vol] 31.4 g/dL Normal 30.5-36.0 [facility] Comment on above: Order Comment: Speci men Type: BLOOD SPECIMENOrdering Facility: [facility] Address: [address] [place] [address] Performed By: #### 5 7021-8 ####[facility] LABORATORYCLIA [id number] [place] [address] [place] MCV (RBC) [Entitic vol] 92.2 fL Normal 80.0-100.0 [facility] Comment on above: Order Comment: Speci men Type: BLOOD SPECIMENOrdering Facility: [facility] Address: [address] [place] [address] Performed By: #### 5 7021-8 ####[facility] LABORATORYCLIA [id number] [address] [place] Monocytes (Bld) [#/Vol] 0.52 10*3/uL Normal <0.87 [facility] Comment on above: Order Comment: Speci men Type: BLOOD SPECIMENOrdering Facility: [facility] Address: [address] [place] [address] Performed By: #### 5 7021-8 ####[facility] LABORATORYCLIA [id number] [address] STATES [facility] Monocytes/100 WBC (Bld) 6.2 % Normal [facility] Comment on above: Order Comment: Speci men Type: BLOOD SPECIMENOrdering Facility: [facility] Address: [address] [place] [address] Performed By: #### 5 7021-8 ####[facility] LABORATORYCLIA [id number] [address] [place] Neutrophils (Bld) [#/Vol] 5.78 10*3/uL Normal 1.45-7.50 [facility] Comment on above: Order Comment: Speci men Type: BLOOD SPECIMENOrdering Facility: [facility] Address: [address] [place] [address] Performed By: #### 5 7021-8 ####[facility] LABORATORYCLIA [id number] [address] [place] Neutrophils/100 WBC (Bld) 69.5 % Normal [facility] Comment on above: Order Comment: Speci men Type: BLOOD SPECIMENOrdering Facility: [facility] Address: [address] Performed By: #### 5 7021-8 ####[facility] LABORATORYCLIA [id number] [address] Nucleated RBC (Bld) [#/Vol] 10*3/uL Normal <0.01 [facility] Comment on above: Order Comment: Speci men Type: BLOOD SPECIMENOrdering Facility: [facility] Address: [address] [place], [place] [address] Performed By: #### 5 7021-8 ####[facility] LABORATORYCLIA [id number] [address] Nucleated RBC/100 WBC (Bld) [Ratio] 0.0 /100 WBC Normal [facility] Comment on above: Order Comment: Speci men Type: BLOOD SPECIMENOrdering Facility: [facility] Address: [address] [place], [place] [address] Performed By: #### 5 7021-8 ####[facility] LABORATORYCLIA [id number] [address] STATES [facility] Platelet mean volume (Bld) [Entitic vol] 9.2 fL Normal 9.0-12.7 [facility] Comment on above: Order Comment: Speci men Type: BLOOD SPECIMENOrdering Facility: [facility] Address: [address] [place], [place] [address] Performed By: #### 5 7021-8 ####[facility] LABORATORYCLIA [id number] [address] STATES [facility] Platelets (Bld) [#/Vol] 379 10*3/uL Normal 150-400 [facility] Comment on above: Order Comment: Speci men Type: BLOOD SPECIMENOrdering Facility: [facility] Address: [address] [place], [place] [address] Performed By: #### 5 7021-8 ####[facility] LABORATORYCLIA [id number] [place] [address] [place] RBC (Bld) [#/Vol] 3.32 10*6/uL Low 4.20-6.00 [facility] Comment on above: Order Comment: Speci men Type: BLOOD SPECIMENOrdering Facility: [facility] Address: [address] [place] [address] Performed By: #### 5 7021-8 ####[facility] LABORATORYCLIA [id number] [place] [address] [place] WBC (Bld) [#/Vol] 8.33 10*3/uL Normal 3.70-11.00 [facility] Comment on above: Order Comment: Speci men Type: BLOOD SPECIMENOrdering Facility: [facility] Address: [address] [place] [address] Performed By: #### 5 7021-8 ####[facility] LABORATORYCLIA [id number] [address] OF [facility] CONSULT PROGon 08-17-2021 CONSULT PROG Normal [facility] NUTRITIONon 08-17-2021 NUTRITION Normal [facility] Basic metabolic 2000 panelon 08-16-2021 Anion gap [Moles/Vol] 14 mmol/L Normal 9-18 [facility] Comment on above: Order Comment: Speci men Type: BLOOD SPECIMENOrdering Facility: [facility] Address: [address] [place] [address] Performed By: #### 2 4321-2, 92335-2 ####[facility] LABORATORYCLIA [id number] [address] [place] Calcium [Mass/Vol] 8.8 mg/dL Normal 8.5-10.2 [facility] Comment on above: Order Comment: Speci men Type: BLOOD SPECIMENOrdering Facility: [facility] Address: [address] [place] [address] Performed By: #### 2 4321-2, 29712-1 ####[facility] LABORATORYCLIA [id number] [address] [place] Chloride [Moles/Vol] 97 mmol/L Normal 97-105 [facility] Comment on above: Order Comment: Speci men Type: BLOOD SPECIMENOrdering Facility: [facility] Address: [address] [address] Performed By: #### 2 4322, ####[facility] LABORATORYCLIA [id number] [place] [address] [place] CO2 [Moles/Vol] 27 mmol/L Normal 22-30 [facility] Comment on above: Order Comment: Speci men Type: BLOOD SPECIMENOrdering Facility: [facility] Address: [address] [place] [address] Performed By: #### 2 4322, ####[facility]CL[facility] [id number] [address] STATES OF [facility] Creatinine [Mass/Vol] 0.50 mg/dL Low 0.73-1.22 [facility] Comment on above: Order Comment: Speci men Type: BLOOD SPECIMENOrdering Facility: [facility] Address: [address] [place] [address] Performed By: #### 2 4320-06, ####[facility] LABORATORYCLIA [id number] [address] ESTIMATED GLOMERULAR FILTRATION RATE 110 mL/min/1.73m??? Normal >=60 [facility] Comment on above: Order Comment: Speci men Type: BLOOD SPECIMENOrdering Facility: [facility] Address: [address] [place] [address] Result Comment: Luzmaria mated Glomerular Filtration Rate [...] actual GFR. Performed By: #### 2 2, ####[facility] LABORATORYCLIA [id number] [place] [address] [place] Glucose [Mass/Vol] 101 mg/dL High 74-99 [facility] Comment on above: Order Comment: Shira feldman Type: BLOOD SPECIMENOrdering Facility: [facility] Address: [address] [place] [address] Result Comment: The [place] [employer] (ADA) [...] Care. 2016.39(Suppl 1). Performed By: #### 2 ####[facility] LABORATORYCLIA [id number] [place] [address] [place] Potassium [Moles/Vol] 3.6 mmol/L Low 3.7-5.1 [facility] Comment on above: Order Comment: Shira feldman Type: BLOOD SPECIMENOrdering Facility: [facility] Address: [address] [place] [address] Performed By: #### 2 ####[facility] LABORATORYCLIA [id number] [place] [address] [place] Sodium [Moles/Vol] 138 mmol/L Normal 136-144 [facility] Comment on above: Order Comment: Shira feldman Type: BLOOD SPECIMENOrdering Facility: [facility] Address: [address] [place] [address] Performed By: #### 2 ####[facility] LABORATORYCLIA [id number] [place] [address] [place] Urea nitrogen [Mass/Vol] 11 mg/dL Normal 9-24 [facility] Comment on above: Order Comment: Speci men Type: BLOOD SPECIMENOrdering Facility: [facility] Address: [address] [place] [address] Performed By: #### 2 4321-2, 27664-5 ####[facility] LABORATORYCLIA [id number] [address] [place] CASE MANAGEMon 08-16-2021 CASE MANAGEM Normal [facility] CBC W Auto Differential pane l (Bld)on 08-16-2021 Basophils (Bld) [#/Vol] 0.03 10*3/uL Normal <0.11 [facility] Comment on above: Order Comment: Speci men Type: BLOOD SPECIMENOrdering Facility: [facility] Address: [address] [place] [address] Performed By: #### 5 7021-8 ####[facility] LABORATORYCLIA [id number] [address] [place] Basophils/100 WBC (Bld) 0.4 % Normal [facility] Comment on above: Order Comment: Speci men Type: BLOOD SPECIMENOrdering Facility: [facility] Address: [address] [place] [address] Performed By: #### 5 7021-8 ####[facility] LABORATORYCLIA [id number] [address] [place] Differential cell count method Nom (Bld) Auto Normal [facility] Comment on above: Order Comment: Speci men Type: BLOOD SPECIMENOrdering Facility: [facility] Address: [address] [place] [address] Performed By: #### 5 7021-8 ####[facility] LABORATORYCLIA [id number] [place] [address] [place] Eosinophils (Bld) [#/Vol] 0.19 10*3/uL Normal <0.46 [facility] Comment on above: Order Comment: Speci men Type: BLOOD SPECIMENOrdering Facility: [facility] Address: [address] [place] [address] Performed By: #### 5 7021-8 ####[facility]ORATORYCLIA [id number] [address] Eosinophils/100 WBC (Bld) 2.5 % Normal [facility] Comment on above: Order Comment: Speci men Type: BLOOD SPECIMENOrdering Facility: [facility] Address: [address] [place] [address] Performed By: #### 5 7021-8 ####[facility] LABORATORYCLIA [id number] [address] Erythrocyte distribution width (RBC) [Ratio] 17.1 % High 11.5-15.0 [facility] Comment on above: Order Comment: Speci men Type: BLOOD SPECIMENOrdering Facility: [facility] Address: [address] [place] [address] Performed By: #### 5 7021-8 ####[facility] LABORATORYCLIA [id number] [address] Hematocrit (Bld) [Volume fraction] 29.2 % Low 39.0-51.0 [facility] Comment on above: Order Comment: Speci men Type: BLOOD SPECIMENOrdering Facility: [facility] Address: [address] [place] [address] Performed By: #### 5 7021-8 ####[facility]ORATORYCLIA [id number] [address] Hemoglobin (Bld) [Mass/Vol] 9.0 g/dL Low 13.0-17.0 [facility] Comment on above: Order Comment: Speci men Type: BLOOD SPECIMENOrdering Facility: [facility] Address: [address] [place] [address] Performed By: #### 5 7021-8 ####[facility]ORATORYCLIA [id number] [address] [place] IMMATURE GRAN % 0.3 % Normal [facility] Comment on above: Order Comment: Speci men Type: BLOOD SPECIMENOrdering Facility: [facility] Address: [address] [place] [address] Performed By: #### 5 7021-8 ####[facility] LABORATORYCLIA [id number] [address] IMMATURE GRAN ABS <0.03 Normal <0.10 [facility] Comment on above: Order Comment: Speci men Type: BLOOD SPECIMENOrdering Facility: [facility] Address: [address] [place] [address] Performed By: #### 5 7021-8 ####[facility] LABORATORYCLIA [id number] [address] Lymphocytes (Bld) [#/Vol] 1.41 10*3/uL Normal 1.00-4.00 [facility] Comment on above: Order Comment: Speci men Type: BLOOD SPECIMENOrdering Facility: [facility] Address: [address] [place] [address] Performed By: #### 5 7021-8 ####[facility] LABORATORYCLIA [id number] [address] Lymphocytes/100 WBC (Bld) 18.4 % Normal [facility] Comment on above: Order Comment: Speci men Type: BLOOD SPECIMENOrdering Facility: [facility] Address: [address] [place] [address] Performed By: #### 5 7021-8 ####[facility] LABORATORYCLIA [id number] [address] MCH (RBC) [Entitic mass] 28.0 pg Normal 26.0-34.0 [facility] Comment on above: Order Comment: Speci men Type: BLOOD SPECIMENOrdering Facility: [facility] Address: [address] [place] [address] Performed By: #### 5 7021-8 ####[facility] LABORATORYCLIA [id number] [address] MCHC (RBC) [Mass/Vol] 30.8 g/dL Normal 30.5-36.0 [facility] Comment on above: Order Comment: Speci men Type: BLOOD SPECIMENOrdering Facility: [facility] Address: [address] [place] [address] Performed By: #### 5 7021-8 ####[facility] LABORATORYCLIA [id number] [address] [place] MCV (RBC) [Entitic vol] 91.0 fL Normal 80.0-100.0 [facility] Comment on above: Order Comment: Speci men Type: BLOOD SPECIMENOrdering Facility: [facility] Address: [address] [place] [address] Performed By: #### 5 7021-8 ####[facility] LABORATORYCLIA [id number] [address] STATES [facility] Monocytes (Bld) [#/Vol] 0.47 10*3/uL Normal <0.87 [facility] Comment on above: Order Comment: Speci men Type: BLOOD SPECIMENOrdering Facility: [facility] Address: [address] [place] [address] Performed By: #### 5 7021-8 ####[facility]ORATORYCLIA [id number] [address] Monocytes/100 WBC (Bld) 6.1 % Normal [facility] Comment on above: Order Comment: Speci men Type: BLOOD SPECIMENOrdering Facility: [facility] Address: [address] [place] [address] Performed By: #### 5 7021-8 ####[facility] LABORATORYCLIA [id number] [address] [place] Neutrophils (Bld) [#/Vol] 5.55 10*3/uL Normal 1.45-7.50 [facility] Comment on above: Order Comment: Speci men Type: BLOOD SPECIMENOrdering Facility: [facility] Address: [address] [place], [place] [address] Performed By: #### 5 7021-8 ####[facility]ORATORYCLIA [id number] [address] Neutrophils/100 WBC (Bld) 72.3 % Normal [facility] Comment on above: Order Comment: Speci men Type: BLOOD SPECIMENOrdering Facility: [facility] Address: [address] [place] [address] Performed By: #### 5 7021-8 ####[facility]ORATORYCLIA [id number] [address] [place] Nucleated RBC (Bld) [#/Vol] 10*3/uL Normal <0.01 [facility] Comment on above: Order Comment: Speci men Type: BLOOD SPECIMENOrdering Facility: [facility] Address: [address] [place] [address] Performed By: #### 5 7021-8 ####[facility]ORATORYCLIA [id number] [address] Nucleated RBC/100 WBC (Bld) [Ratio] 0.0 /100 WBC Normal [facility] Comment on above: Order Comment: Speci men Type: BLOOD SPECIMENOrdering Facility: [facility] Address: [address] [place] [address] Performed By: #### 5 7021-8 ####[facility] LABORATORYCLIA [id number] [address] [place] Platelet mean volume (Bld) [Entitic vol] 9.3 fL Normal 9.0-12.7 [facility] Comment on above: Order Comment: Speci men Type: BLOOD SPECIMENOrdering Facility: [facility] Address: [address] [place] [address] Performed By: #### 5 7021-8 ####[facility]ORATORYCLIA [id number] [address] [place] Platelets (Bld) [#/Vol] 319 10*3/uL Normal 150-400 [facility] Comment on above: Order Comment: Speci men Type: BLOOD SPECIMENOrdering Facility: [facility] Address: [address] [place] [address] Performed By: #### 5 7021-8 ####[facility] LABORATORYCLIA [id number] [address] [place] RBC (Bld) [#/Vol] 3.21 10*6/uL Low 4.20-6.00 [facility] Comment on above: Order Comment: Speci men Type: BLOOD SPECIMENOrdering Facility: [facility] Address: [address] [place] [address] Performed By: #### 5 7021-8 ####[facility]ORATORYCLIA [id number] [address] [place] WBC (Bld) [#/Vol] 7.67 10*3/uL Normal 3.70-11.00 [facility] Comment on above: Order Comment: Speci men Type: BLOOD SPECIMENOrdering Facility: [facility] Address: [address] [place] [address] Performed By: #### 5 7021-8 ####[facility]ORATORYCLIA [id number] [address] [place] Basophils (Bld) [#/Vol] 0.04 10*3/uL Normal <0.11 [facility] Comment on above: Order Comment: Speci men Type: BLOOD SPECIMENOrdering Facility: [facility] Address: [address] [place] [address] Performed By: #### 5 7021-8 ####[facility] LABORATORYCLIA [id number] [address] [place] Basophils/100 WBC (Bld) 0.5 % Normal [facility] Comment on above: Order Comment: Speci men Type: BLOOD SPECIMENOrdering Facility: [facility] Address: [address] [place] [address] Performed By: #### 5 7021-8 ####[facility]ORATORYCLIA [id number] [address] Differential cell count method Nom (Bld) Auto Normal [facility] Comment on above: Order Comment: Speci men Type: BLOOD SPECIMENOrdering Facility: [facility] Address: [address] [place] [address] Performed By: #### 5 7021-8 ####[facility]ORATORYCLIA [id number] [address] [place] Eosinophils (Bld) [#/Vol] 0.19 10*3/uL Normal <0.46 [facility] Comment on above: Order Comment: Speci men Type: BLOOD SPECIMENOrdering Facility: [facility] Address: [address] [place] [address] Performed By: #### 5 7021-8 ####[facility]ORATORYCLIA [id number] [address] Eosinophils/100 WBC (Bld) 2.5 % Normal [facility] Comment on above: Order Comment: Speci men Type: BLOOD SPECIMENOrdering Facility: [facility] Address: [address] [place] [address] Performed By: #### 5 7021-8 ####[facility]ORATORYCLIA [id number] [address] Erythrocyte distribution width (RBC) [Ratio] 17.2 % High 11.5-15.0 [facility] Comment on above: Order Comment: Speci men Type: BLOOD SPECIMENOrdering Facility: [facility] Address: [address] [place] [address] Performed By: #### 5 7021-8 ####[facility] LABORATORYCLIA [id number] [address] [place] Hematocrit (Bld) [Volume fraction] 29.5 % Low 39.0-51.0 [facility] Comment on above: Order Comment: Speci men Type: BLOOD SPECIMENOrdering Facility: [facility] Address: [address] [place] [address] Performed By: #### 5 7021-8 ####[facility] LABORATORYCLIA [id number] [address] STATES OF [facility] Hemoglobin (Bld) [Mass/Vol] 9.2 g/dL Low 13.0-17.0 [facility] Comment on above: Order Comment: Speci men Type: BLOOD SPECIMENOrdering Facility: [facility] Address: [address] [place] [address] Performed By: #### 5 7021-8 ####[facility]ORATORYCLIA [id number] [address] IMMATURE GRAN % 0.4 % Normal [facility] Comment on above: Order Comment: Speci men Type: BLOOD SPECIMENOrdering Facility: [facility] Address: [address] [place] [address] Performed By: #### 5 7021-8 ####[facility]ORATORYCLIA [id number] [address] IMMATURE GRAN ABS 0.03 k/uL Normal <0.10 [facility] Comment on above: Order Comment: Speci men Type: BLOOD SPECIMENOrdering Facility: [facility] Address: [address] [place] [address] Performed By: #### 5 7021-8 ####[facility] LABORATORYCLIA [id number] [address] [place] Lymphocytes (Bld) [#/Vol] 1.50 10*3/uL Normal 1.00-4.00 [facility] Comment on above: Order Comment: Speci men Type: BLOOD SPECIMENOrdering Facility: [facility] Address: [address] [place] [address] Performed By: #### 5 7021-8 ####[facility]ORATORYCLIA [id number] [address] Lymphocytes/100 WBC (Bld) 19.7 % Normal [facility] Comment on above: Order Comment: Speci men Type: BLOOD SPECIMENOrdering Facility: [facility] Address: [address] [place] [address] Performed By: #### 5 7021-8 ####[facility]ORATORYCLIA [id number] [address] MCH (RBC) [Entitic mass] 28.3 pg Normal 26.0-34.0 [facility] Comment on above: Order Comment: Speci men Type: BLOOD SPECIMENOrdering Facility: [facility] Address: [address] [place] [address] Performed By: #### 5 7021-8 ####[facility] LABORATORYCLIA [id number] [address] MCHC (RBC) [Mass/Vol] 31.2 g/dL Normal 30.5-36.0 [facility] Comment on above: Order Comment: Speci men Type: BLOOD SPECIMENOrdering Facility: [facility] Address: [address] [place] [address] Performed By: #### 5 7021-8 ####[facility] LABORATORYCLIA [id number] [address] STATES [facility] MCV (RBC) [Entitic vol] 90.8 fL Normal 80.0-100.0 [facility] Comment on above: Order Comment: Speci men Type: BLOOD SPECIMENOrdering Facility: [facility] Address: [address] [place] [address] Performed By: #### 5 7021-8 ####[facility]ORATORYCLIA [id number] [address] Monocytes (Bld) [#/Vol] 0.49 10*3/uL Normal <0.87 [facility] Comment on above: Order Comment: Speci men Type: BLOOD SPECIMENOrdering Facility: [facility] Address: [address] [place] [address] Performed By: #### 5 7021-8 ####[facility]ORATORYCLIA [id number] [address] Monocytes/100 WBC (Bld) 6.4 % Normal [facility] Comment on above: Order Comment: Speci men Type: BLOOD SPECIMENOrdering Facility: [facility] Address: [address] [address] Performed By: #### 5 7021-8 ####[facility]ORATORYCLIA [id number] [address] [place] Neutrophils (Bld) [#/Vol] 5.38 10*3/uL Normal 1.45-7.50 [facility] Comment on above: Order Comment: Speci men Type: BLOOD SPECIMENOrdering Facility: [facility] Address: [address] [place] [address] Performed By: #### 5 7021-8 ####[facility]ORATORYCLIA [id number] [address] [place] Neutrophils/100 WBC (Bld) 70.5 % Normal [facility] Comment on above: Order Comment: Speci men Type: BLOOD SPECIMENOrdering Facility: [facility] Address: [address] [place] [address] Performed By: #### 5 7021-8 ####[facility]ORATORYCLIA [id number] [address] [place] Nucleated RBC (Bld) [#/Vol] 10*3/uL Normal <0.01 [facility] Comment on above: Order Comment: Speci men Type: BLOOD SPECIMENOrdering Facility: [facility] Address: [address] [address] Performed By: #### 5 7021-8 ####[facility]ORATORYCLIA [id number] [address] [place] Nucleated RBC/100 WBC (Bld) [Ratio] 0.0 /100 WBC Normal [facility] Comment on above: Order Comment: Speci men Type: BLOOD SPECIMENOrdering Facility: [facility] Address: [address] [address] Performed By: #### 5 7021-8 ####[facility]ORATORYCLIA [id number] [place] [address] [place] Platelet mean volume (Bld) [Entitic vol] 9.0 fL Normal 9.0-12.7 [facility] Comment on above: Order Comment: Speci men Type: BLOOD SPECIMENOrdering Facility: [facility] Address: [address] [place] [address] Performed By: #### 5 7021-8 ####[facility]ORATORYCLIA [id number] [place] [address] [place] Platelets (Bld) [#/Vol] 316 10*3/uL Normal 150-400 [facility] Comment on above: Order Comment: Speci men Type: BLOOD SPECIMENOrdering Facility: [facility] Address: [address] [place] [address] Performed By: #### 5 7021-8 ####[facility]ORATORYCLIA [id number] [place] [address] [place] RBC (Bld) [#/Vol] 3.25 10*6/uL Low 4.20-6.00 [facility] Comment on above: Order Comment: Speci men Type: BLOOD SPECIMENOrdering Facility: [facility] Address: [address] [place] [address] Performed By: #### 5 7021-8 ####[facility]ORATORYCLIA [id number] [address] [place] WBC (Bld) [#/Vol] 7.63 10*3/uL Normal 3.70-11.00 [facility] Comment on above: Order Comment: Speci men Type: BLOOD SPECIMENOrdering Facility: [facility] Address: [address] [place] [address] Performed By: #### 5 7021-8 ####[facility]ORATORYCLIA [id number] [address] [place] Basophils (Bld) [#/Vol] Normal <0.11 [facility] Comment on above: Order Comment: Speci men Type: BLOOD SPECIMENOrdering Facility: [facility] Address: [address] [place] [address] Result Comment: Carolina Owens RN informed lab after results autoverified that she rd on the wrong patient. Lab to credit. Nurse to redraw on correct patient.Corrected result: Previously reported as 0.04 k/uL on 08/16/2021 at 4:44 AM EDT. Performed By: #### 5 7021-8 ####[facility]ORATORYCLIA [id number] [address] STATES OF [facility] Basophils/100 WBC (Bld) Normal [facility] Comment on above: Order Comment: Johni francia Type: BLOOD SPECIMENOrdering Facility: [facility] Address: [address] [place] [address] Result Comment: Tati ected result: Previously reported as 0.4 % on 08/16/2021 at 4:44 AM EDT. Performed By: #### 5 7021-8 ####[facility]ORATORYCLIA [id number] [address] STATES OF [facility] CBC W Differential panel, method unspecified (Bld) Normal [facility] Comment on above: Order Comment: Speccara feldman Type: BLOOD SPECIMENOrdering Facility: [facility] Address: [address] [place] [address] Result Comment: Carolina Owens RN informed lab after results autoverified that she rd on the wrong patient. Lab to credit. Nurse to redraw on correct patient. Performed By: #### 5 7021-8 ####[facility]ORATORYCLIA [id number] [address] STATES OF [facility] Differential cell count method Nom (Bld) Normal [facility] Comment on above: Order Comment: Speci francia Type: BLOOD SPECIMENOrdering Facility: [facility] Address: [address] [place] [address] Result Comment: Carolina Owens RN informed lab after results autoverified that she rd on the wrong patient. Lab to credit. Nurse to redraw on correct patient.Corrected result: Previously reported as Auto on 08/16/2021 at 4:44 AM EDT. Performed By: #### 5 7021-8 ####[facility]ORATORYCLIA [id number] [address] Eosinophils (Bld) [#/Vol] Normal <0.46 [facility] Comment on above: Order Comment: Speci men Type: BLOOD SPECIMENOrdering Facility: [facility] Address: [address] [place] [address] Result Comment: Carolina Owens RN informed lab after results autoverified that she rd on the wrong patient. Lab to credit. Nurse to redraw on correct patient.Corrected result: Previously reported as 0.07 k/uL on 08/16/2021 at 4:44 AM EDT. Performed By: #### 5 7021-8 ####[facility]ORATORYCLIA [id number] [address] Eosinophils/100 WBC (Bld) Normal [facility] Comment on above: Order Comment: Speci men Type: BLOOD SPECIMENOrdering Facility: [facility] Address: [address] [place] [address] Result Comment: Carolina Owens RN informed lab after results autoverified that she rd on the wrong patient. Lab to credit. Nurse to redraw on correct patient.Corrected result: Previously reported as 0.7 % on 08/16/2021 at 4:44 AM EDT. Performed By: #### 5 7021-8 ####[facility]ORATORYCLIA [id number] [address] Erythrocyte distribution width (RBC) [Ratio] Normal 11.5-15.0 [facility] Comment on above: Order Comment: Speci men Type: BLOOD SPECIMENOrdering Facility: [facility] Address: [address] [place] [address] Result Comment: Carolina Owens RN informed lab after results autoverified that she rd on the wrong patient. Lab to credit. Nurse to redraw on correct patient.Corrected result: Previously reported as 14.2 % on 08/16/2021 at 4:44 AM EDT. Performed By: #### 5 7021-8 ####[facility]ORATORYCLIA [id number] [address] Hematocrit (Bld) [Volume fraction] Normal 39.0-51.0 [facility] Comment on above: Order Comment: Speci men Type: BLOOD SPECIMENOrdering Facility: [facility] Address: [address] [place] [address] Result Comment: Carolina Owens RN informed lab after results autoverified that she rd on the wrong patient. Lab to credit. Nurse to redraw on correct patient.Corrected result: Previously reported as 34.3 % on 08/16/2021 at 4:44 AM EDT. Performed By: #### 5 7021-8 ####[facility]ORATORYCLIA [id number] [address] Hemoglobin (Bld) [Mass/Vol] Normal 13.0-17.0 [facility] Comment on above: Order Comment: Speci men Type: BLOOD SPECIMENOrdering Facility: [facility] Address: [address] [place] [address] Result Comment: Carolina Owens RN informed lab after results autoverified that she rd on the wrong patient. Lab to credit. Nurse to redraw on correct patient.Corrected result: Previously reported as 11.2 g/dL on 08/16/2021 at 4:44 AM EDT. Performed By: #### 5 7021-8 ####[facility]ORATORYCLIA [id number] [address] [place] IMMATURE GRAN % Normal [facility] Comment on above: Order Comment: Speci men Type: BLOOD SPECIMENOrdering Facility: [facility] Address: [address] [place] [address] Result Comment: Carolina Owens RN informed lab after results autoverified that she rd on the wrong patient. Lab to credit. Nurse to redraw on correct patient.Corrected result: Previously reported as 0.8 % on 08/16/2021 at 4:44 AM EDT. Performed By: #### 5 7021-8 ####[facility]ORATORYCLIA [id number] [address] STATES [facility] IMMATURE GRAN ABS Normal <0.10 [facility] Comment on above: Order Comment: Speci men Type: BLOOD SPECIMENOrdering Facility: [facility] Address: [address] [place] [address] Result Comment: Tati ected result: Previously reported as 0.08 k/uL on 08/16/2021 at 4:44 AM EDT. Performed By: #### 5 7021-8 ####[facility]ORATORYCLIA [id number] [address] Lymphocytes (Bld) [#/Vol] Normal 1.00-4.00 [facility] Comment on above: Order Comment: Speci [facility] Type: BLOOD SPECIMENOrdering Facility: [facility] Address: [address] [place] [address] Result Comment: Carolina Owens RN informed lab after results autoverified that she rd on the wrong patient. Lab to credit. Nurse to redraw on correct patient.Corrected result: Previously reported as 1.17 k/uL on 08/16/2021 at 4:44 AM EDT. Performed By: #### 5 7021-8 ####[facility]ORATORYCLIA [id number] [address] Lymphocytes/100 WBC (Bld) Normal [facility] Comment on above: Order Comment: Speci men Type: BLOOD SPECIMENOrdering Facility: [facility] Address: [address] [place] [address] Result Comment: Carolina Owens RN informed lab after results autoverified that she rd on the wrong patient. Lab to credit. Nurse to redraw on correct patient.Corrected result: Previously reported as 12.0 % on 08/16/2021 at 4:44 AM EDT. Performed By: #### 5 7021-8 ####[facility]ORATORYCLIA [id number] [place] [address] [place] MCHC (RBC) [Mass/Vol] Normal 30.5-36.0 [facility] Comment on above: Order Comment: Speci men Type: BLOOD SPECIMENOrdering Facility: [facility] Address: [address] [place] [address] Result Comment: Carolina Owens RN informed lab after results autoverified that she rd on the wrong patient. Lab to credit. Nurse to redraw on correct patient.Corrected result: Previously reported as 32.7 g/dL on 08/16/2021 at 4:44 AM EDT. Performed By: #### 5 7021-8 ####[facility]ORATORYCLIA [id number] [address] MCV (RBC) [Entitic vol] Normal 80.0-100.0 [facility] Comment on above: Order Comment: Speci men Type: BLOOD SPECIMENOrdering Facility: [facility] Address: [address] [place] [address] Result Comment: Carolina Owens RN informed lab after results autoverified that she rd on the wrong patient. Lab to credit. Nurse to redraw on correct patient.Corrected result: Previously reported as 94.2 fL on 08/16/2021 at 4:44 AM EDT. Performed By: #### 5 7021-8 ####[facility]ORATORYCLIA [id number] [address] [place] Monocytes (Bld) [#/Vol] Normal <0.87 [facility] Comment on above: Order Comment: Speci men Type: BLOOD SPECIMENOrdering Facility: [facility] Address: [address] [place] [address] Result Comment: Carolina Owens RN informed lab after results autoverified that she rd on the wrong patient. Lab to credit. Nurse to redraw on correct patient.Corrected result: Previously reported as 0.99 k/uL on 08/16/2021 at 4:44 AM EDT. Performed By: #### 5 7021-8 ####[facility]ORATORYCLIA [id number] [address] [place] Monocytes/100 WBC (Bld) Normal [facility] Comment on above: Order Comment: Speci francia Type: BLOOD SPECIMENOrdering Facility: [facility] Address: [address] [place] [address] Result Comment: Carolina Owens RN informed lab after results autoverified that she rd on the wrong patient. Lab to credit. Nurse to redraw on correct patient.Corrected result: Previously reported as 10.2 % on 08/16/2021 at 4:44 AM EDT. Performed By: #### 5 7021-8 ####[facility]ORATORYCLIA [id number] [address] [place] Neutrophils (Bld) [#/Vol] Normal 1.45-7.50 [facility] Comment on above: Order Comment: Speccara feldman Type: BLOOD SPECIMENOrdering Facility: [facility] Address: [address] [place] [address] Result Comment: Carolina Owens RN informed lab after results autoverified that she rd on the wrong patient. Lab to credit. Nurse to redraw on correct patient.Corrected result: Previously reported as 7.40 k/uL on 08/16/2021 at 4:44 AM EDT. Performed By: #### 5 7021-8 ####[facility]ORATORYCLIA [id number] [address] STATES OF [facility] Neutrophils/100 WBC (Bld) Normal [facility] Comment on above: Order Comment: Speci francia Type: BLOOD SPECIMENOrdering Facility: [facility] Address: [address] [place] [address] Result Comment: Carolina Owens RN informed lab after results autoverified that she rd on the wrong patient. Lab to credit. Nurse to redraw on correct patient.Corrected result: Previously reported as 75.9 % on 08/16/2021 at 4:44 AM EDT. Performed By: #### 5 7021-8 ####[facility]ORATORYCLIA [id number] [place] [address] [place] Platelet mean volume (Bld) [Entitic vol] Normal 9.0-12.7 [facility] Comment on above: Order Comment: Speci men Type: BLOOD SPECIMENOrdering Facility: [facility] Address: [address] [place] [address] Result Comment: Carolina Owens RN informed lab after results autoverified that she rd on the wrong patient. Lab to credit. Nurse to redraw on correct patient.Corrected result: Previously reported as 9.1 fL on 08/16/2021 at 4:44 AM EDT. Performed By: #### 5 7021-8 ####[facility]ORATORYCLIA [id number] [place] [address] [place] Platelets (Bld) [#/Vol] Normal 150-400 [facility] Comment on above: Order Comment: Speci men Type: BLOOD SPECIMENOrdering Facility: [facility] Address: [address] [place] [address] Result Comment: Carolina Owens RN informed lab after results autoverified that she rd on the wrong patient. Lab to credit. Nurse to redraw on correct patient.Corrected result: Previously reported as 338 k/uL on 08/16/2021 at 4:44 AM EDT. Performed By: #### 5 7021-8 ####[facility]ORATORYCLIA [id number] [place] [address] [place] RBC (Bld) [#/Vol] Normal 4.20-6.00 [facility] Comment on above: Order Comment: Speci men Type: BLOOD SPECIMENOrdering Facility: [facility] Address: [address] [place] [address] Result Comment: Carolina Owens RN informed lab after results autoverified that she rd on the wrong patient. Lab to credit. Nurse to redraw on correct patient.Corrected result: Previously reported as 3.64 m/uL on 08/16/2021 at 4:44 AM EDT. Performed By: #### 5 7021-8 ####[facility]ORATORYCLIA [id number] [place] [address] [place] [facility] [place] WBC (Bld) [#/Vol] Normal 3.70-11.00 [facility] Comment on above: Order Comment: Speci men Type: BLOOD SPECIMENOrdering Facility: [facility] Address: [address] [place] [address] Result Comment: Carolina Owens RN informed lab after results autoverified that she rd on the wrong patient. Lab to credit. Nurse to redraw on correct patient.Corrected result: Previously reported as 9.75 k/uL on 08/16/2021 at 4:44 AM EDT. Performed By: #### 5 7021-8 ####[facility]ORATORYCLIA [id number] [address] [place] CONSULT PROGon 08-16-2021 CONSULT PROG [facility] Magnesium SerPl-mCncon 08-16 Magnesium [Mass/Vol] 1.8 mg/dL Normal 1.7-2.3 [facility] Comment on above: Order Comment: Speci men Type: BLOOD SPECIMENOrdering Facility: [facility] Address: [address] [place] [address] Performed By: #### 2 4321-2, 86484-1 ####[facility]ORATORYCLIA [id number] [place] [address] [place] NURSING PROGon 08-16-2021 NURSING PROG Normal [facility] Basic metabolic 2000 panelon 08-15-2021 Anion gap [Moles/Vol] 13 mmol/L Normal 9-18 [facility] Comment on above: Order Comment: Speci men Type: BLOOD SPECIMENOrdering Facility: [facility] Address: [address] [place] [address] Performed By: #### 2 4321-2 ####[facility]ORATORYCLIA [id number] [place] [address] [place] Calcium [Mass/Vol] 9.0 mg/dL Normal 8.5-10.2 [facility] Comment on above: Order Comment: Speci men Type: BLOOD SPECIMENOrdering Facility: [facility] Address: [address] [address] Performed By: #### 2 4321-2 ####[facility]ORATORYCLIA [id number] [place] [address] [place] Chloride [Moles/Vol] 95 mmol/L Low 97-105 [facility] Comment on above: Order Comment: Speci men Type: BLOOD SPECIMENOrdering Facility: [facility] Address: [address] [place] [address] Performed By: #### 2 4321-2 ####[facility]ORATORYCLIA [id number] [place] [address] [place] CO2 [Moles/Vol] 28 mmol/L Normal 22-30 [facility] Comment on above: Order Comment: Speci men Type: BLOOD SPECIMENOrdering Facility: [facility] Address: [address] [place] [address] Performed By: #### 2 4321-2 ####[facility]ORATORYCLIA [id number] [address] STATES OF [facility] Creatinine [Mass/Vol] 0.50 mg/dL Low 0.73-1.22 [facility] Comment on above: Order Comment: Speci men Type: BLOOD SPECIMENOrdering Facility: [facility] Address: [address] [place] [address] Performed By: #### 2 4321-2 ####[facility]ORATORYCLIA [id number] [address] ESTIMATED GLOMERULAR FILTRATION RATE 110 mL/min/1.73m??? Normal >=60 [facility] Comment on above: Order Comment: Speci men Type: BLOOD SPECIMENOrdering Facility: [facility] Address: [address] [place] [address] Result Comment: Luzmaria mated Glomerular Filtration Rate [...] 2 4321-2 ####[facility]ORATORYCLIA [id number] [place] [address] [place] Glucose [Mass/Vol] 106 mg/dL High 74-99 [facility] Comment on above: Order Comment: Shira feldman Type: BLOOD SPECIMENOrdering Facility: [facility] Address: [address] [place] [address] Result Comment: The [place] [employer] (ADA) [...] 2 4321-2 ####[facility]ORATORYCLIA [id number] [place] [address] [place] Potassium [Moles/Vol] 3.3 mmol/L Low 3.7-5.1 [facility] Comment on above: Order Comment: Shira feldman Type: BLOOD SPECIMENOrdering Facility: [facility] Address: [address] [address] Performed By: #### 2 4321-2 ####[facility]ORATORYCLIA [id number] [place] [address] [place] Sodium [Moles/Vol] 136 mmol/L Normal 136-144 [facility] Comment on above: Order Comment: Shira feldman Type: BLOOD SPECIMENOrdering Facility: [facility] Address: [address] [address] Performed By: #### 2 4321-2 ####[facility]ORATORYCLIA [id number] [address] [place] Urea nitrogen [Mass/Vol] 11 mg/dL Normal 9-24 [facility] Comment on above: Order Comment: Speci men Type: BLOOD SPECIMENOrdering Facility: [facility] Address: [address] [place] [address] Performed By: #### 2 4321-2 ####[facility]ORATORYCLIA [id number] [address] [place] CASE MANAGEMon 08-15-2021 CASE MANAGEM Normal [facility] CBC W Auto Differential pane l (Bld)on 08-15-2021 Basophils (Bld) [#/Vol] 0.03 10*3/uL Normal <0.11 [facility] Comment on above: Order Comment: Speci men Type: BLOOD SPECIMENOrdering Facility: [facility] Address: [address] [place] [address] Performed By: #### 5 7021-8 ####[facility]ORATORYCLIA [id number] [address] [place] Basophils/100 WBC (Bld) 0.4 % Normal [facility] Comment on above: Order Comment: Speci men Type: BLOOD SPECIMENOrdering Facility: [facility] Address: [address] [place] [address] Performed By: #### 5 7021-8 ####[facility]ORATORYCLIA [id number] [address] STATES OF [facility] Differential cell count method Nom (Bld) Auto Normal [facility] Comment on above: Order Comment: Speci men Type: BLOOD SPECIMENOrdering Facility: [facility] Address: [address] [place] [address] Performed By: #### 5 7021-8 ####[facility]ORATORYCLIA [id number] [place] [address] [place] Eosinophils (Bld) [#/Vol] 0.20 10*3/uL Normal <0.46 [facility] Comment on above: Order Comment: Speci men Type: BLOOD SPECIMENOrdering Facility: [facility] Address: [address] [place] [address] Performed By: #### 5 7021-8 ####[facility]ORATORYCLIA [id number] [address] STATES OF [facility] Eosinophils/100 WBC (Bld) 2.5 % Normal [facility] Comment on above: Order Comment: Speci men Type: BLOOD SPECIMENOrdering Facility: [facility] Address: [address] [place] [address] Performed By: #### 5 7021-8 ####[facility]ORATORYCLIA [id number] [address] Erythrocyte distribution width (RBC) [Ratio] 16.7 % High 11.5-15.0 [facility] Comment on above: Order Comment: Speci men Type: BLOOD SPECIMENOrdering Facility: [facility] Address: [address] [place] [address] Performed By: #### 5 7021-8 ####[facility]ORATORYCLIA [id number] [address] Hematocrit (Bld) [Volume fraction] 30.3 % Low 39.0-51.0 [facility] Comment on above: Order Comment: Speci men Type: BLOOD SPECIMENOrdering Facility: [facility] Address: [address] [place] [address] Performed By: #### 5 7021-8 ####[facility]ORATORYCLIA [id number] [address] [place] Hemoglobin (Bld) [Mass/Vol] 9.4 g/dL Low 13.0-17.0 [facility] Comment on above: Order Comment: Speci men Type: BLOOD SPECIMENOrdering Facility: [facility] Address: [address] [place] [address] Performed By: #### 5 7021-8 ####[facility]ORATORYCLIA [id number] [address] [place] IMMATURE GRAN % 0.4 % Normal [facility] Comment on above: Order Comment: Speci men Type: BLOOD SPECIMENOrdering Facility: [facility] Address: [address] [place] [address] Performed By: #### 5 7021-8 ####[facility]ORATORYCLIA [id number] [address] IMMATURE GRAN ABS 0.03 k/uL Normal <0.10 [facility] Comment on above: Order Comment: Speci men Type: BLOOD SPECIMENOrdering Facility: [facility] Address: [address] [place] [address] Performed By: #### 5 7021-8 ####[facility]ORATORYCLIA [id number] [address] Lymphocytes (Bld) [#/Vol] 1.50 10*3/uL Normal 1.00-4.00 [facility] Comment on above: Order Comment: Speci men Type: BLOOD SPECIMENOrdering Facility: [facility] Address: [address] [place] [address] Performed By: #### 5 7021-8 ####[facility]ORATORYCLIA [id number] [address] Lymphocytes/100 WBC (Bld) 18.5 % Normal [facility] Comment on above: Order Comment: Speci men Type: BLOOD SPECIMENOrdering Facility: [facility] Address: [address] [place] [address] Performed By: #### 5 7021-8 ####[facility]ORATORYCLIA [id number] [address] STATES [facility] MCH (RBC) [Entitic mass] 29.0 pg Normal 26.0-34.0 [facility] Comment on above: Order Comment: Speci men Type: BLOOD SPECIMENOrdering Facility: [facility] Address: [address] [place] [address] Performed By: #### 5 7021-8 ####[facility]ORATORYCLIA [id number] [address] STATES OF [facility] MCHC (RBC) [Mass/Vol] 31.0 g/dL Normal 30.5-36.0 [facility] Comment on above: Order Comment: Speci men Type: BLOOD SPECIMENOrdering Facility: [facility] Address: [address] [place] [address] Performed By: #### 5 7021-8 ####[facility]ORATORYCLIA [id number] [address] MCV (RBC) [Entitic vol] 93.5 fL Normal 80.0-100.0 [facility] Comment on above: Order Comment: Speci men Type: BLOOD SPECIMENOrdering Facility: [facility] Address: [address] [place] [address] Performed By: #### 5 7021-8 ####[facility]ORATORYCLIA [id number] [address] [place] Monocytes (Bld) [#/Vol] 0.47 10*3/uL Normal <0.87 [facility] Comment on above: Order Comment: Speci men Type: BLOOD SPECIMENOrdering Facility: [facility] Address: [address] [place] [address] Performed By: #### 5 7021-8 ####[facility]ORATORYCLIA [id number] [address] Monocytes/100 WBC (Bld) 5.8 % Normal [facility] Comment on above: Order Comment: Speci men Type: BLOOD SPECIMENOrdering Facility: [facility] Address: [address] [place] [address] Performed By: #### 5 7021-8 ####[facility] LABORATORYCLIA [id number] [address] [place] Neutrophils (Bld) [#/Vol] 5.87 10*3/uL Normal 1.45-7.50 [facility] Comment on above: Order Comment: Speci men Type: BLOOD SPECIMENOrdering Facility: [facility] Address: [address] [place] [address] Performed By: #### 5 7021-8 ####[facility]ORATORYCLIA [id number] [address] Neutrophils/100 WBC (Bld) 72.4 % Normal [facility] Comment on above: Order Comment: Speci men Type: BLOOD SPECIMENOrdering Facility: [facility] Address: [address] [place] [address] Performed By: #### 5 7021-8 ####[facility]ORATORYCLIA [id number] [address] Nucleated RBC (Bld) [#/Vol] 10*3/uL Normal <0.01 [facility] Comment on above: Order Comment: Speci men Type: BLOOD SPECIMENOrdering Facility: [facility] Address: [address] [place] [address] Performed By: #### 5 7021-8 ####[facility]ORATORYCLIA [id number] [address] Nucleated RBC/100 WBC (Bld) [Ratio] 0.0 /100 WBC Normal [facility] Comment on above: Order Comment: Speci men Type: BLOOD SPECIMENOrdering Facility: [facility] Address: [address] [place] [address] Performed By: #### 5 7021-8 ####[facility]ORATORYCLIA [id number] [address] Platelet mean volume (Bld) [Entitic vol] 9.4 fL Normal 9.0-12.7 [facility] Comment on above: Order Comment: Speci men Type: BLOOD SPECIMENOrdering Facility: [facility] Address: [address] [place] [address] Performed By: #### 5 7021-8 ####[facility]ORATORYCLIA [id number] [address] [place] Platelets (Bld) [#/Vol] 290 10*3/uL Normal 150-400 [facility] Comment on above: Order Comment: Speci men Type: BLOOD SPECIMENOrdering Facility: [facility] Address: [address] [place] [address] Performed By: #### 5 7021-8 ####[facility]ORATORYCLIA [id number] [address] STATES OF [facility] RBC (Bld) [#/Vol] 3.24 10*6/uL Low 4.20-6.00 [facility] Comment on above: Order Comment: Speci men Type: BLOOD SPECIMENOrdering Facility: [facility] Address: [address] [place] [address] Performed By: #### 5 7021-8 ####[facility]ORATORYCLIA [id number] [address] STATES OF [facility] WBC (Bld) [#/Vol] 8.10 10*3/uL Normal 3.70-11.00 [facility] Comment on above: Order Comment: Speci men Type: BLOOD SPECIMENOrdering Facility: [facility] Address: [address] [place] [address] Performed By: #### 5 7021-8 ####[facility]ORATORYCLIA [id number] [address] OF [facility] THERAPY NTon 08-15-2021 THERAPY NT Normal [facility] THERAPY NT Normal [facility] THERAPY NT Normal [facility] Basic metabolic 2000 panelon 08-14-2021 Anion gap [Moles/Vol] 10 mmol/L Normal 9-18 [facility] Comment on above: Order Comment: Speci men Type: BLOOD SPECIMENOrdering Facility: [facility] Address: [address] [place] [address] Performed By: #### 2 4321-2 ####[facility]ORATORYCLIA [id number] [address] [place] Calcium [Mass/Vol] 8.8 mg/dL Normal 8.5-10.2 [facility] Comment on above: Order Comment: Speci men Type: BLOOD SPECIMENOrdering Facility: [facility] Address: [address] [place] [address] Performed By: #### 2 4321-2 ####[facility] LABORATORYCLIA [id number] [place] [address] [place] Chloride [Moles/Vol] 92 mmol/L Low 97-105 [facility] Comment on above: Order Comment: Speci men Type: BLOOD SPECIMENOrdering Facility: [facility] Address: [address] [place] [address] Performed By: #### 2 4321-2 ####[facility]ORATORYCLIA [id number] [place] [address] [place] CO2 [Moles/Vol] 29 mmol/L Normal 22-30 [facility] Comment on above: Order Comment: Speci men Type: BLOOD SPECIMENOrdering Facility: [facility] Address: [address] [place] [address] Performed By: #### 2 4321-2 ####[facility] LABORATORYCLIA [id number] [place] [address] [place] Creatinine [Mass/Vol] 0.49 mg/dL Low 0.73-1.22 [facility] Comment on above: Order Comment: Speci men Type: BLOOD SPECIMENOrdering Facility: [facility] Address: [address] [place] [address] Performed By: #### 2 4321-2 ####[facility]ORATORYCLIA [id number] [address] OF [facility] ESTIMATED GLOMERULAR FILTRATION RATE 111 mL/min/1.73m??? Normal >=60 [facility] Comment on above: Order Comment: Speci men Type: BLOOD SPECIMENOrdering Facility: [facility] Address: [address] [place] [address] Result Comment: Luzmaria mated Glomerular Filtration Rate [...] 2 4321-2 ####[facility]ORATORYCLIA [id number] [place] [address] [place] Glucose [Mass/Vol] 104 mg/dL High 74-99 [facility] Comment on above: Order Comment: Shira feldman Type: BLOOD SPECIMENOrdering Facility: [facility] Address: [address] [id number] Result Comment: The [place] [employer] (ADA) [...] 2 4321-2 ####[facility]ORATORYCLIA [id number] [place] [address] [place] Potassium [Moles/Vol] 3.1 mmol/L Low 3.7-5.1 [facility] Comment on above: Order Comment: Shira feldman Type: BLOOD SPECIMENOrdering Facility: [facility] Address: [address] [place] [address] Performed By: #### 2 4321-2 ####[facility]ORATORYCLIA [id number] [place] [address] [place] Sodium [Moles/Vol] 131 mmol/L Low 136-144 [facility] Comment on above: Order Comment: Shira feldman Type: BLOOD SPECIMENOrdering Facility: [facility] Address: [address] [address] Performed By: #### 2 4321-2 ####[facility]ORATORYCLIA [id number] [address] STATES [facility] Urea nitrogen [Mass/Vol] 13 mg/dL Normal 9-24 [facility] Comment on above: Order Comment: Speci men Type: BLOOD SPECIMENOrdering Facility: [facility] Address: [address] [place] [address] Performed By: #### 2 4321-2 ####[facility]ORATORYCLIA [id number] [address] STATES [place] CBC W Auto Differential pane l (Bld)on 08-14-2021 Basophils (Bld) [#/Vol] 10*3/uL Normal <0.11 [facility] Comment on above: Order Comment: Speci men Type: BLOOD SPECIMENOrdering Facility: [facility] Address: [address] [place] [address] Performed By: #### 5 7021-8 ####[facility]ORATORYCLIA [id number] [address] [place] Basophils/100 WBC (Bld) 0.2 % Normal [facility] Comment on above: Order Comment: Speci men Type: BLOOD SPECIMENOrdering Facility: [facility] Address: [address] [place] [address] Performed By: #### 5 7021-8 ####[facility]ORATORYCLIA [id number] [address] Differential cell count method Nom (Bld) Auto Normal [facility] Comment on above: Order Comment: Speci men Type: BLOOD SPECIMENOrdering Facility: [facility] Address: [address] [place] [address] Performed By: #### 5 7021-8 ####[facility]ORATORYCLIA [id number] [place] [address] [place] Eosinophils (Bld) [#/Vol] 0.23 10*3/uL Normal <0.46 [facility] Comment on above: Order Comment: Speci men Type: BLOOD SPECIMENOrdering Facility: [facility] Address: [address] [place] [address] Performed By: #### 5 7021-8 ####[facility]ORATORYCLIA [id number] [address] [place] Eosinophils/100 WBC (Bld) 2.7 % Normal [facility] Comment on above: Order Comment: Speci men Type: BLOOD SPECIMENOrdering Facility: [facility] Address: [address] [place] [address] Performed By: #### 5 7021-8 ####[facility]ORATORYCLIA [id number] [address] [place] Erythrocyte distribution width (RBC) [Ratio] 16.6 % High 11.5-15.0 [facility] Comment on above: Order Comment: Speci men Type: BLOOD SPECIMENOrdering Facility: [facility] Address: [address] [place] [address] Performed By: #### 5 7021-8 ####[facility]ORATORYCLIA [id number] [address] [place] Hematocrit (Bld) [Volume fraction] 28.6 % Low 39.0-51.0 [facility] Comment on above: Order Comment: Speci men Type: BLOOD SPECIMENOrdering Facility: [facility] Address: [address] [place] [address] Performed By: #### 5 7021-8 ####[facility]ORATORYCLIA [id number] [address] [place] Hemoglobin (Bld) [Mass/Vol] 9.0 g/dL Low 13.0-17.0 [facility] Comment on above: Order Comment: Speci men Type: BLOOD SPECIMENOrdering Facility: [facility] Address: [address] [place] [address] Performed By: #### 5 7021-8 ####[facility]ORATORYCLIA [id number] [address] IMMATURE GRAN % 0.2 % Normal [facility] Comment on above: Order Comment: Speci men Type: BLOOD SPECIMENOrdering Facility: [facility] Address: [address] [place] [address] Performed By: #### 5 7021-8 ####[facility]ORATORYCLIA [id number] [address] IMMATURE GRAN ABS <0.03 Normal <0.10 [facility] Comment on above: Order Comment: Speci men Type: BLOOD SPECIMENOrdering Facility: [facility] Address: [address] [place] [address] Performed By: #### 5 7021-8 ####[facility]ORATORYCLIA [id number] [address] Lymphocytes (Bld) [#/Vol] 1.33 10*3/uL Normal 1.00-4.00 [facility] Comment on above: Order Comment: Speci men Type: BLOOD SPECIMENOrdering Facility: [facility] Address: [address] [place] [address] Performed By: #### 5 7021-8 ####[facility]ORATORYCLIA [id number] [address] Lymphocytes/100 WBC (Bld) 15.6 % Normal [facility] Comment on above: Order Comment: Speci men Type: BLOOD SPECIMENOrdering Facility: [facility] Address: [address] [place] [address] Performed By: #### 5 7021-8 ####[facility]ORATORYCLIA [id number] [address] STATES [facility] MCH (RBC) [Entitic mass] 29.0 pg Normal 26.0-34.0 [facility] Comment on above: Order Comment: Speci men Type: BLOOD SPECIMENOrdering Facility: [facility] Address: [address] [place] [address] Performed By: #### 5 7021-8 ####[facility]ORATORYCLIA [id number] [address] [place] MCHC (RBC) [Mass/Vol] 31.5 g/dL Normal 30.5-36.0 [facility] Comment on above: Order Comment: Speci men Type: BLOOD SPECIMENOrdering Facility: [facility] Address: [address] [place] [address] Performed By: #### 5 7021-8 ####[facility]ORATORYCLIA [id number] [address] MCV (RBC) [Entitic vol] 92.3 fL Normal 80.0-100.0 [facility] Comment on above: Order Comment: Speci men Type: BLOOD SPECIMENOrdering Facility: [facility] Address: [address] [place] [address] Performed By: #### 5 7021-8 ####[facility]ORATORYCLIA [id number] [address] [place] Monocytes (Bld) [#/Vol] 0.44 10*3/uL Normal <0.87 [facility] Comment on above: Order Comment: Speci men Type: BLOOD SPECIMENOrdering Facility: [facility] Address: [address] [place] [address] Performed By: #### 5 7021-8 ####[facility]ORATORYCLIA [id number] [address] Monocytes/100 WBC (Bld) 5.2 % Normal [facility] Comment on above: Order Comment: Speci men Type: BLOOD SPECIMENOrdering Facility: [facility] Address: [address] [place] [address] Performed By: #### 5 7021-8 ####[facility]ORATORYCLIA [id number] [address] [place] Neutrophils (Bld) [#/Vol] 6.46 10*3/uL Normal 1.45-7.50 [facility] Comment on above: Order Comment: Speci men Type: BLOOD SPECIMENOrdering Facility: [facility] Address: [address] [address] Performed By: #### 5 7021-8 ####[facility]ORATORYCLIA [id number] [address] Neutrophils/100 WBC (Bld) 76.1 % Normal [facility] Comment on above: Order Comment: Speci men Type: BLOOD SPECIMENOrdering Facility: [facility] Address: [address] [place] [address] Performed By: #### 5 7021-8 ####[facility]ORATORYCLIA [id number] [address] Nucleated RBC (Bld) [#/Vol] 10*3/uL Normal <0.01 [facility] Comment on above: Order Comment: Speci men Type: BLOOD SPECIMENOrdering Facility: [facility] Address: [address] [place] [address] Performed By: #### 5 7021-8 ####[facility]ORATORYCLIA [id number] [address] Nucleated RBC/100 WBC (Bld) [Ratio] 0.0 /100 WBC Normal [facility] Comment on above: Order Comment: Speci men Type: BLOOD SPECIMENOrdering Facility: [facility] Address: [address] [place] [address] Performed By: #### 5 7021-8 ####[facility]ORATORYCLIA [id number] [address] [place] Platelet mean volume (Bld) [Entitic vol] 9.5 fL Normal 9.0-12.7 [facility] Comment on above: Order Comment: Speci men Type: BLOOD SPECIMENOrdering Facility: [facility] Address: [address] [place] [address] Performed By: #### 5 7021-8 ####[facility]ORATORYCLIA [id number] [address] [place] Platelets (Bld) [#/Vol] 247 10*3/uL Normal 150-400 [facility] Comment on above: Order Comment: Speci men Type: BLOOD SPECIMENOrdering Facility: [facility] Address: [address] [place] [address] Performed By: #### 5 7021-8 ####[facility]ORATORYCLIA [id number] [place] [address] [place] [facility] RBC (Bld) [#/Vol] 3.10 10*6/uL Low 4.20-6.00 [facility] Comment on above: Order Comment: Speci men Type: BLOOD SPECIMENOrdering Facility: [facility] Address: [address] [place] [address] Performed By: #### 5 7021-8 ####[facility]ORATORYCLIA [id number] [address] [place] WBC (Bld) [#/Vol] 8.50 10*3/uL Normal 3.70-11.00 [facility] Comment on above: Order Comment: Speci men Type: BLOOD SPECIMENOrdering Facility: [facility] Address: [address] [place] [address] Performed By: #### 5 7021-8 ####[facility]ORATORYCLIA [id number] [address] [place] CONSULTon 08-14-2021 CONSULT Normal [facility] NURSING PROGon 08-14-2021 NURSING PROG Normal [facility] CBC W Auto Differential pane l (Bld)on 08-13-2021 Basophils (Bld) [#/Vol] 10*3/uL Normal <0.11 [facility] Comment on above: Order Comment: Speci men Type: BLOOD SPECIMENOrdering Facility: [facility] Address: [address] [place] [address] Performed By: #### 5 7021-8 ####[facility]ORATORYCLIA [id number] [address] [place] Basophils/100 WBC (Bld) 0.2 % Normal [facility] Comment on above: Order Comment: Speci men Type: BLOOD SPECIMENOrdering Facility: [facility] Address: [address] [place] [address] Performed By: #### 5 7021-8 ####[facility]ORATORYCLIA [id number] [address] Differential cell count method Nom (Bld) Auto Normal [facility] Comment on above: Order Comment: Speci men Type: BLOOD SPECIMENOrdering Facility: [facility] Address: [address] [place] [address] Performed By: #### 5 7021-8 ####[facility]ORATORYCLIA [id number] [address] Eosinophils (Bld) [#/Vol] 0.31 10*3/uL Normal <0.46 [facility] Comment on above: Order Comment: Speci men Type: BLOOD SPECIMENOrdering Facility: [facility] Address: [address] [place] [address] Performed By: #### 5 7021-8 ####[facility]ORATORYCLIA [id number] [address] Eosinophils/100 WBC (Bld) 3.7 % Normal [facility] Comment on above: Order Comment: Speci men Type: BLOOD SPECIMENOrdering Facility: [facility] Address: [address] [place] [address] Performed By: #### 5 7021-8 ####[facility]ATORYCLIA [id number] [address] Erythrocyte distribution width (RBC) [Ratio] 16.6 % High 11.5-15.0 [facility] Comment on above: Order Comment: Speci men Type: BLOOD SPECIMENOrdering Facility: [facility] Address: [address] [place] [address] Performed By: #### 5 7021-8 ####[facility]ORATORYCLIA [id number] [address] [place] Hematocrit (Bld) [Volume fraction] 27.5 % Low 39.0-51.0 [facility] Comment on above: Order Comment: Speci men Type: BLOOD SPECIMENOrdering Facility: [facility] Address: [address] [place] [address] Performed By: #### 5 7021-8 ####[facility]ORATORYCLIA [id number] [address] Hemoglobin (Bld) [Mass/Vol] 8.4 g/dL Low 13.0-17.0 [facility] Comment on above: Order Comment: Speci men Type: BLOOD SPECIMENOrdering Facility: [facility] Address: [address] [place] [address] Performed By: #### 5 7021-8 ####[facility]ORATORYCLIA [id number] [address] IMMATURE GRAN % 0.5 % Normal [facility] Comment on above: Order Comment: Speci men Type: BLOOD SPECIMENOrdering Facility: [facility] Address: [address] [place] [address] Performed By: #### 5 7021-8 ####[facility]ORATORYCLIA [id number] [address] IMMATURE GRAN ABS 0.04 k/uL Normal <0.10 [facility] Comment on above: Order Comment: Speci men Type: BLOOD SPECIMENOrdering Facility: [facility] Address: [address] [place] [address] Performed By: #### 5 7021-8 ####[facility]ORATORYCLIA [id number] [address] Lymphocytes (Bld) [#/Vol] 1.55 10*3/uL Normal 1.00-4.00 [facility] Comment on above: Order Comment: Speci men Type: BLOOD SPECIMENOrdering Facility: [facility] Address: [address] [place] [address] Performed By: #### 5 7021-8 ####[facility]ORATORYCLIA [id number] [address] Lymphocytes/100 WBC (Bld) 18.7 % Normal [facility] Comment on above: Order Comment: Speci men Type: BLOOD SPECIMENOrdering Facility: [facility] Address: [address] [place] [address] Performed By: #### 5 7021-8 ####[facility]ORATORYCLIA [id number] [address] MCH (RBC) [Entitic mass] 28.9 pg Normal 26.0-34.0 [facility] Comment on above: Order Comment: Speci men Type: BLOOD SPECIMENOrdering Facility: [facility] Address: [address] [place] [address] Performed By: #### 5 7021-8 ####[facility]ORATORYCLIA [id number] [address] MCHC (RBC) [Mass/Vol] 30.5 g/dL Normal 30.5-36.0 [facility] Comment on above: Order Comment: Speci men Type: BLOOD SPECIMENOrdering Facility: [facility] Address: [address] [place] [address] Performed By: #### 5 7021-8 ####[facility]ORATORYCLIA [id number] [address] MCV (RBC) [Entitic vol] 94.5 fL Normal 80.0-100.0 [facility] Comment on above: Order Comment: Speci men Type: BLOOD SPECIMENOrdering Facility: [facility] Address: [address] [place] [address] Performed By: #### 5 7021-8 ####[facility]ORATORYCLIA [id number] [address] Monocytes (Bld) [#/Vol] 0.47 10*3/uL Normal <0.87 [facility] Comment on above: Order Comment: Speci men Type: BLOOD SPECIMENOrdering Facility: [facility] Address: [address] [place] [address] Performed By: #### 5 7021-8 ####[facility]ORATORYCLIA [id number] [address] Monocytes/100 WBC (Bld) 5.7 % Normal [facility] Comment on above: Order Comment: Speci men Type: BLOOD SPECIMENOrdering Facility: [facility] Address: [address] [place] [address] Performed By: #### 5 7021-8 ####[facility]ORATORYCLIA [id number] [address] [place] Neutrophils (Bld) [#/Vol] 5.92 10*3/uL Normal 1.45-7.50 [facility] Comment on above: Order Comment: Speci men Type: BLOOD SPECIMENOrdering Facility: [facility] Address: [address] [place] [address] Performed By: #### 5 7021-8 ####[facility]ORATORYCLIA [id number] [address] Neutrophils/100 WBC (Bld) 71.2 % Normal [facility] Comment on above: Order Comment: Speci men Type: BLOOD SPECIMENOrdering Facility: [facility] Address: [address] [place] [address] Performed By: #### 5 7021-8 ####[facility]ATORYCLIA [id number] [address] [place] Nucleated RBC (Bld) [#/Vol] 10*3/uL Normal <0.01 [facility] Comment on above: Order Comment: Speci men Type: BLOOD SPECIMENOrdering Facility: [facility] Address: [address] [place] [address] Performed By: #### 5 7021-8 ####[facility]ATORYCLIA [id number] [address] [place] Nucleated RBC/100 WBC (Bld) [Ratio] 0.0 /100 WBC Normal [facility] Comment on above: Order Comment: Speci men Type: BLOOD SPECIMENOrdering Facility: [facility] Address: [address] [place] [address] Performed By: #### 5 7021-8 ####[facility]ORATORYCLIA [id number] [address] [place] Platelet mean volume (Bld) [Entitic vol] 9.9 fL Normal 9.0-12.7 [facility] Comment on above: Order Comment: Speci men Type: BLOOD SPECIMENOrdering Facility: [facility] Address: [address] [place] [address] Performed By: #### 5 7021-8 ####[facility]ORATORYCLIA [id number] [address] [place] Platelets (Bld) [#/Vol] 203 10*3/uL Normal 150-400 [facility] Comment on above: Order Comment: Speci men Type: BLOOD SPECIMENOrdering Facility: [facility] Address: [address] [place] [address] Performed By: #### 5 7021-8 ####[facility]ORATORYCLIA [id number] [address] [place] RBC (Bld) [#/Vol] 2.91 10*6/uL Low 4.20-6.00 [facility] Comment on above: Order Comment: Speci men Type: BLOOD SPECIMENOrdering Facility: [facility] Address: [address] [place], [place] [id number] Performed By: #### 5 7021-8 ####[facility] LABORATORYCLIA [id number] [address] [place] WBC (Bld) [#/Vol] 8.31 10*3/uL Normal 3.70-11.00 [facility] Comment on above: Order Comment: Speci men Type: BLOOD SPECIMENOrdering Facility: [facility] Address: [address] [place] [address] Performed By: #### 5 7021-8 ####[facility] LABORATORYCLIA [id number] [address] OF [facility] aPTT PPPon 08-13-2021 aPTT Coag (PPP) [Time] 69.7 s High 23.0-32.4 [facility] Comment on above: Order Comment: Speci men Type: BLOOD SPECIMENOrdering Facility: [facility] Address: [address] [place], [place] [id number] Performed By: #### 1 4979-9 ####[facility] LABORATORYCLIA [id number] [address] [place] OF [facility] aPTT Coag (PPP) [Time] 70.6 s High 23.0-32.4 [facility] Comment on above: Order Comment: Speci men Type: BLOOD SPECIMENOrdering Facility: [facility] Address: [address] [place], [place] [id number] Performed By: #### 1 4979-9 ####[facility] LABORATORYCLIA [id number] [address] [place] ALLIED HEALTHon 08-12-2021 ALLIED HEALTH Normal [facility] ALLIED HEALTH Normal [facility] Basic metabolic 2000 panelon 08-12-2021 Anion gap [Moles/Vol] 7 mmol/L Low 9-18 [facility] Comment on above: Order Comment: Speci men Type: BLOOD SPECIMENOrdering Facility: [facility] Address: [address] [place], [place] [address] Performed By: #### 2 4321-2, , 2776-05 ####[facility] LABORATORYCLIA [id number] [address] STATES OF [facility] Calcium [Mass/Vol] 8.8 mg/dL Normal 8.5-10.2 [facility] Comment on above: Order Comment: Speci men Type: BLOOD SPECIMENOrdering Facility: [facility] Address: [address] [place], [place] [id number] Performed By: #### 2 4321-2, , 2776-05 ####[facility] LABORATORYCLIA [id number] [place] [address] [place] Chloride [Moles/Vol] 96 mmol/L Low 97-105 [facility] Comment on above: Order Comment: Speci men Type: BLOOD SPECIMENOrdering Facility: [facility] Address: [address] [place] [address] Performed By: #### 2 4321-2, , 2776-05 ####[facility] LABORATORYCLIA [id number] [address] STATES OF [facility] CO2 [Moles/Vol] 32 mmol/L High 22-30 [facility] Comment on above: Order Comment: Speci men Type: BLOOD SPECIMENOrdering Facility: [facility] Address: [address] [place] [address] Performed By: #### 2 4321-2, , 2776-05 ####[facility]ORATORYCLIA [id number] [address] Creatinine [Mass/Vol] 0.52 mg/dL Low 0.73-1.22 [facility] Comment on above: Order Comment: Speci men Type: BLOOD SPECIMENOrdering Facility: [facility] Address: [address] [place] [address] Performed By: #### 2 4321-2, , 2776-05 ####[facility]ORATORYCLIA [id number] [address] ESTIMATED GLOMERULAR FILTRATION RATE 109 mL/min/1.73m??? Normal >=60 [facility] Comment on above: Order Comment: Speci men Type: BLOOD SPECIMENOrdering Facility: [facility] Address: [address] [place] [address] Result Comment: Luzmaria mated Glomerular Filtration Rate [...] , 2776-05 ####[facility] LABORATORYCLIA [id number] [place] [address] [place] Glucose [Mass/Vol] 119 mg/dL High 74-99 [facility] Comment on above: Order Comment: Shira feldman Type: BLOOD SPECIMENOrdering Facility: [facility] Address: [address] [place], [place] [address] Result Comment: The [employer] (ADA) [...] , 2776-05 ####[facility] LABORATORYCLIA [id number] [place] [address] [place] Potassium [Moles/Vol] 3.7 mmol/L Normal 3.7-5.1 [facility] Comment on above: Order Comment: Shira feldman Type: BLOOD SPECIMENOrdering Facility: [facility] Address: [address] [place] [address] Performed By: #### 2 4321-2, , 2776-05 ####[facility]ORATORYCLIA [id number] [place] [address] [place] Sodium [Moles/Vol] 135 mmol/L Low 136-144 [facility] Comment on above: Order Comment: Shira feldman Type: BLOOD SPECIMENOrdering Facility: [facility] Address: [address] [place] [address] Performed By: #### 2 4321-2, 93035-8, 2771 ####[facility]ORATORYCLIA [id number] [address] STATES [facility] Urea nitrogen [Mass/Vol] 20 mg/dL Normal 9-24 [facility] Comment on above: Order Comment: Speci men Type: BLOOD SPECIMENOrdering Facility: [facility] Address: [address] [place] [address] Performed By: #### 2 4321-2, , 27711-04 ####[facility]ORATORYCLIA [id number] [address] CASE MANAGEMon 08-12-2021 CASE MANAGEM Normal [facility] CBC W Auto Differential pane l (Bld)on 08-12-2021 Basophils (Bld) [#/Vol] 0.04 10*3/uL Normal <0.11 [facility] Comment on above: Order Comment: Speci men Type: BLOOD SPECIMENOrdering Facility: [facility] Address: [address] [place] [address] Performed By: #### 5 7021-8 ####[facility]ORATORYCLIA [id number] [address] [place] Basophils/100 WBC (Bld) 0.5 % Normal [facility] Comment on above: Order Comment: Speci men Type: BLOOD SPECIMENOrdering Facility: [facility] Address: [address] [place] [address] Performed By: #### 5 7021-8 ####[facility] LABORATORYCLIA [id number] [address] STATES [facility] Differential cell count method Nom (Bld) Auto Normal [facility] Comment on above: Order Comment: Speci men Type: BLOOD SPECIMENOrdering Facility: [facility] Address: [address] [place] [address] Performed By: #### 5 7021-8 ####[facility]ORATORYCLIA [id number] [address] [place] Eosinophils (Bld) [#/Vol] 0.19 10*3/uL Normal <0.46 [facility] Comment on above: Order Comment: Speci men Type: BLOOD SPECIMENOrdering Facility: [facility] Address: [address] [place] [address] Performed By: #### 5 7021-8 ####[facility] LABORATORYCLIA [id number] [address] [place] Eosinophils/100 WBC (Bld) 2.3 % Normal [facility] Comment on above: Order Comment: Speci men Type: BLOOD SPECIMENOrdering Facility: [facility] Address: [address] [place] [address] Performed By: #### 5 7021-8 ####[facility] LABORATORYCLIA [id number] [address] STATES [facility] Erythrocyte distribution width (RBC) [Ratio] 17.1 % High 11.5-15.0 [facility] Comment on above: Order Comment: Speci men Type: BLOOD SPECIMENOrdering Facility: [facility] Address: [address] [place] [address] Performed By: #### 5 7021-8 ####[facility] LABORATORYCLIA [id number] [address] [place] Hematocrit (Bld) [Volume fraction] 25.3 % Low 39.0-51.0 [facility] Comment on above: Order Comment: Speci men Type: BLOOD SPECIMENOrdering Facility: [facility] Address: [address] [place] [address] Performed By: #### 5 7021-8 ####[facility]ORATORYCLIA [id number] [address] [place] Hemoglobin (Bld) [Mass/Vol] 7.9 g/dL Low 13.0-17.0 [facility] Comment on above: Order Comment: Speci men Type: BLOOD SPECIMENOrdering Facility: [facility] Address: [address] [place] [address] Performed By: #### 5 7021-8 ####[facility]ORATORYCLIA [id number] [address] IMMATURE GRAN % 0.5 % Normal [facility] Comment on above: Order Comment: Speci men Type: BLOOD SPECIMENOrdering Facility: [facility] Address: [address] [place] [address] Performed By: #### 5 7021-8 ####[facility]ORATORYCLIA [id number] [address] IMMATURE GRAN ABS 0.04 k/uL Normal <0.10 [facility] Comment on above: Order Comment: Speci men Type: BLOOD SPECIMENOrdering Facility: [facility] Address: [address] [place] [address] Performed By: #### 5 7021-8 ####[facility]ORATORYCLIA [id number] [address] Lymphocytes (Bld) [#/Vol] 1.69 10*3/uL Normal 1.00-4.00 [facility] Comment on above: Order Comment: Speci men Type: BLOOD SPECIMENOrdering Facility: [facility] Address: [address] [place] [address] Performed By: #### 5 7021-8 ####[facility]ORATORYCLIA [id number] [address] Lymphocytes/100 WBC (Bld) 20.1 % Normal [facility] Comment on above: Order Comment: Speci men Type: BLOOD SPECIMENOrdering Facility: [facility] Address: [address] [place] [address] Performed By: #### 5 7021-8 ####[facility]ORATORYCLIA [id number] [address] [place] MCH (RBC) [Entitic mass] 28.5 pg Normal 26.0-34.0 [facility] Comment on above: Order Comment: Speci men Type: BLOOD SPECIMENOrdering Facility: [facility] Address: [address] [place] [address] Performed By: #### 5 7021-8 ####[facility]ORATORYCLIA [id number] [address] [place] MCHC (RBC) [Mass/Vol] 31.2 g/dL Normal 30.5-36.0 [facility] Comment on above: Order Comment: Speci men Type: BLOOD SPECIMENOrdering Facility: [facility] Address: [address] [place] [address] Performed By: #### 5 7021-8 ####[facility]ORATORYCLIA [id number] [address] [place] MCV (RBC) [Entitic vol] 91.3 fL Normal 80.0-100.0 [facility] Comment on above: Order Comment: Speci men Type: BLOOD SPECIMENOrdering Facility: [facility] Address: [address] [place] [address] Performed By: #### 5 7021-8 ####[facility]ORATORYCLIA [id number] [address] [place] Monocytes (Bld) [#/Vol] 0.53 10*3/uL Normal <0.87 [facility] Comment on above: Order Comment: Speci men Type: BLOOD SPECIMENOrdering Facility: [facility] Address: [address] [place] [address] Performed By: #### 5 7021-8 ####[facility]ORATORYCLIA [id number] [address] Monocytes/100 WBC (Bld) 6.3 % Normal [facility] Comment on above: Order Comment: Speci men Type: BLOOD SPECIMENOrdering Facility: [facility] Address: [address] [place] [address] Performed By: #### 5 7021-8 ####[facility]ORATORYCLIA [id number] [address] [place] Neutrophils (Bld) [#/Vol] 5.90 10*3/uL Normal 1.45-7.50 [facility] Comment on above: Order Comment: Speci men Type: BLOOD SPECIMENOrdering Facility: [facility] Address: [address] [place] [address] Performed By: #### 5 7021-8 ####[facility]ORATORYCLIA [id number] [address] [place] Neutrophils/100 WBC (Bld) 70.3 % Normal [facility] Comment on above: Order Comment: Speci men Type: BLOOD SPECIMENOrdering Facility: [facility] Address: [address] [place] [address] Performed By: #### 5 7021-8 ####[facility]ORATORYCLIA [id number] [address] [place] Nucleated RBC (Bld) [#/Vol] 10*3/uL Normal <0.01 [facility] Comment on above: Order Comment: Speci men Type: BLOOD SPECIMENOrdering Facility: [facility] Address: [address] [place] [address] Performed By: #### 5 7021-8 ####[facility]ORATORYCLIA [id number] [address] [place] Nucleated RBC/100 WBC (Bld) [Ratio] 0.0 /100 WBC Normal [facility] Comment on above: Order Comment: Speci men Type: BLOOD SPECIMENOrdering Facility: [facility] Address: [address] [place] [address] Performed By: #### 5 7021-8 ####[facility]ORATORYCLIA [id number] [address] [place] Platelet mean volume (Bld) [Entitic vol] 9.8 fL Normal 9.0-12.7 [facility] Comment on above: Order Comment: Speci men Type: BLOOD SPECIMENOrdering Facility: [facility] Address: [address] [place] [address] Performed By: #### 5 7021-8 ####[facility]ORATORYCLIA [id number] [address] Platelets (Bld) [#/Vol] 164 10*3/uL Normal 150-400 [facility] Comment on above: Order Comment: Speci men Type: BLOOD SPECIMENOrdering Facility: [facility] Address: [address] [place] [address] Performed By: #### 5 7021-8 ####[facility]ORATORYCLIA [id number] [address] [place] RBC (Bld) [#/Vol] 2.77 10*6/uL Low 4.20-6.00 [facility] Comment on above: Order Comment: Speci men Type: BLOOD SPECIMENOrdering Facility: [facility] Address: [address] [place] [address] Performed By: #### 5 7021-8 ####[facility]ORATORYCLIA [id number] [address] WBC (Bld) [#/Vol] 8.39 10*3/uL Normal 3.70-11.00 [facility] Comment on above: Order Comment: Speci men Type: BLOOD SPECIMENOrdering Facility: [facility] Address: [address] [place] [address] Performed By: #### 5 7021-8 ####[facility]ORATORYCLIA [id number] [address] BRAIN WO IVCONon 08-13-19 CT BRAIN WO IVCON Normal [facility] CT BRAIN WO IVCON Normal [facility] Magnesium SerPl-mCncon 08-12 Magnesium [Mass/Vol] 2.0 mg/dL Normal 1.7-2.3 [facility] Comment on above: Order Comment: Speci men Type: BLOOD SPECIMENOrdering Facility: [facility] Address: [address] [place] [address] Performed By: #### 2 4321-2, 34060-4, 2777-1 ####[facility]ORATORYCLIA [id number] [address] Phosphate SerPl-mCncon 08-12 Phosphate [Mass/Vol] 2.9 mg/dL Normal 2.7-4.8 [facility] Comment on above: Order Comment: Speci men Type: BLOOD SPECIMENOrdering Facility: [facility] Address: [address] [place] [address] Performed By: #### 2 4321-2, 29458-2, 2777-1 ####[facility]ORATORYCLIA [id number] [address] THERAPY NTon 08-12-2021 THERAPY NT Normal [facility] THERAPY NT Normal [facility] aPTT PPPon 08-12-2021 aPTT Coag (PPP) [Time] 94.2 s High 23.0-32.4 [facility] Comment on above: Order Comment: Speci men Type: BLOOD SPECIMENOrdering Facility: [facility] Address: [address] [place] [address] Performed By: #### 1 4979-9 ####[facility]ORATORYCLIA [id number] [address] aPTT Coag (PPP) [Time] 84.4 s High 23.0-32.4 [facility] Comment on above: Order Comment: Speci men Type: BLOOD SPECIMENOrdering Facility: [facility] Address: [address] [place] [address] Performed By: #### 1 4979-9 ####[facility]ORATORYCLIA [id number] [address] aPTT Coag (PPP) [Time] 71.3 s High 23.0-32.4 [facility] Comment on above: Order Comment: Speci men Type: BLOOD SPECIMENOrdering Facility: [facility] Address: [address] [place] [address] Performed By: #### 1 4979-9 ####[facility]ORATORYCLIA [id number] [address] [place] ALLIED HEALTHon 08-11-2021 ALLIED HEALTH Normal [facility] CBC W Auto Differential pane l (Bld)on 08-11-2021 Basophils (Bld) [#/Vol] 10*3/uL Normal <0.11 [facility] Comment on above: Order Comment: Speci men Type: BLOOD SPECIMENOrdering Facility: [facility] Address: [address] [place] [address] Performed By: #### 5 7021-8 ####[facility]ORATORYCLIA [id number] [address] Basophils/100 WBC (Bld) 0.2 % Normal [facility] Comment on above: Order Comment: Speci men Type: BLOOD SPECIMENOrdering Facility: [facility] Address: [address] [place] [address] Performed By: #### 5 7021-8 ####[facility]ORATORYCLIA [id number] [address] Differential cell count method Nom (Bld) Auto Normal [facility] Comment on above: Order Comment: Speci men Type: BLOOD SPECIMENOrdering Facility: [facility] Address: [address] [place] [address] Performed By: #### 5 7021-8 ####[facility]ORATORYCLIA [id number] [address] [place] Eosinophils (Bld) [#/Vol] 0.16 10*3/uL Normal <0.46 [facility] Comment on above: Order Comment: Speci men Type: BLOOD SPECIMENOrdering Facility: [facility] Address: [address] [place] [address] Performed By: #### 5 7021-8 ####[facility]ORATORYCLIA [id number] [address] [place] Eosinophils/100 WBC (Bld) 1.8 % Normal [facility] Comment on above: Order Comment: Speci men Type: BLOOD SPECIMENOrdering Facility: [facility] Address: [address] [place] [address] Performed By: #### 5 7021-8 ####[facility]ORATORYCLIA [id number] [address] Erythrocyte distribution width (RBC) [Ratio] 17.3 % High 11.5-15.0 [facility] Comment on above: Order Comment: Speci men Type: BLOOD SPECIMENOrdering Facility: [facility] Address: [address] [place] [address] Performed By: #### 5 7021-8 ####[facility]ATORYCLIA [id number] [address] Hematocrit (Bld) [Volume fraction] 26.6 % Low 39.0-51.0 [facility] Comment on above: Order Comment: Speci men Type: BLOOD SPECIMENOrdering Facility: [facility] Address: [address] [place] [address] Performed By: #### 5 7021-8 ####[facility]ATORYCLIA [id number] [address] Hemoglobin (Bld) [Mass/Vol] 8.2 g/dL Low 13.0-17.0 [facility] Comment on above: Order Comment: Speci men Type: BLOOD SPECIMENOrdering Facility: [facility] Address: [address] [place] [address] Performed By: #### 5 7021-8 ####[facility]ATORYCLIA [id number] [address] IMMATURE GRAN % 0.6 % Normal [facility] Comment on above: Order Comment: Speci men Type: BLOOD SPECIMENOrdering Facility: [facility] Address: [address] [place] [address] Performed By: #### 5 7021-8 ####[facility]ORATORYCLIA [id number] [address] IMMATURE GRAN ABS 0.05 k/uL Normal <0.10 [facility] Comment on above: Order Comment: Speci men Type: BLOOD SPECIMENOrdering Facility: [facility] Address: [address] [place] [address] Performed By: #### 5 7021-8 ####[facility]ORATORYCLIA [id number] [address] [place] Lymphocytes (Bld) [#/Vol] 1.40 10*3/uL Normal 1.00-4.00 [facility] Comment on above: Order Comment: Speci men Type: BLOOD SPECIMENOrdering Facility: [facility] Address: [address] [place] [address] Performed By: #### 5 7021-8 ####[facility]ORATORYCLIA [id number] [address] Lymphocytes/100 WBC (Bld) 15.8 % Normal [facility] Comment on above: Order Comment: Speci men Type: BLOOD SPECIMENOrdering Facility: [facility] Address: [address] [place] [address] Performed By: #### 5 7021-8 ####[facility]ORATORYCLIA [id number] [address] MCH (RBC) [Entitic mass] 28.4 pg Normal 26.0-34.0 [facility] Comment on above: Order Comment: Speci men Type: BLOOD SPECIMENOrdering Facility: [facility] Address: [address] [place] [address] Performed By: #### 5 7021-8 ####[facility]ORATORYCLIA [id number] [address] MCHC (RBC) [Mass/Vol] 30.8 g/dL Normal 30.5-36.0 [facility] Comment on above: Order Comment: Speci men Type: BLOOD SPECIMENOrdering Facility: [facility] Address: [address] [address] Performed By: #### 5 7021-8 ####[facility]ORATORYCLIA [id number] [address] [place] MCV (RBC) [Entitic vol] 92.0 fL Normal 80.0-100.0 [facility] Comment on above: Order Comment: Speci men Type: BLOOD SPECIMENOrdering Facility: [facility] Address: [address] [place] [address] Performed By: #### 5 7021-8 ####[facility]ORATORYCLIA [id number] [address] [place] Monocytes (Bld) [#/Vol] 0.61 10*3/uL Normal <0.87 [facility] Comment on above: Order Comment: Speci men Type: BLOOD SPECIMENOrdering Facility: [facility] Address: [address] [place] [address] Performed By: #### 5 7021-8 ####[facility]ORATORYCLIA [id number] [address] STATES [facility] Monocytes/100 WBC (Bld) 6.9 % Normal [facility] Comment on above: Order Comment: Speci men Type: BLOOD SPECIMENOrdering Facility: [facility] Address: [address] [place] [address] Performed By: #### 5 7021-8 ####[facility]ORATORYCLIA [id number] [address] [place] Neutrophils (Bld) [#/Vol] 6.62 10*3/uL Normal 1.45-7.50 [facility] Comment on above: Order Comment: Speci men Type: BLOOD SPECIMENOrdering Facility: [facility] Address: [address] [place] [address] Performed By: #### 5 7021-8 ####[facility]ORATORYCLIA [id number] [address] [place] Neutrophils/100 WBC (Bld) 74.7 % Normal [facility] Comment on above: Order Comment: Speci men Type: BLOOD SPECIMENOrdering Facility: [facility] Address: [address] [address] Performed By: #### 5 7021-8 ####[facility]ORATORYCLIA [id number] [address] [place] Nucleated RBC (Bld) [#/Vol] 10*3/uL Normal <0.01 [facility] Comment on above: Order Comment: Speci men Type: BLOOD SPECIMENOrdering Facility: [facility] Address: [address] [place] [address] Performed By: #### 5 7021-8 ####[facility]ORATORYCLIA [id number] [address] [place] Nucleated RBC/100 WBC (Bld) [Ratio] 0.0 /100 WBC Normal [facility] Comment on above: Order Comment: Speci men Type: BLOOD SPECIMENOrdering Facility: [facility] Address: [address] [place] [address] Performed By: #### 5 7021-8 ####[facility]ORATORYCLIA [id number] [address] [place] Platelet mean volume (Bld) [Entitic vol] 9.8 fL Normal 9.0-12.7 [facility] Comment on above: Order Comment: Speci men Type: BLOOD SPECIMENOrdering Facility: [facility] Address: [address] [place], [place] [address] Performed By: #### 5 7021-8 ####[facility]ORATORYCLIA [id number] [address] [place] Platelets (Bld) [#/Vol] 157 10*3/uL Normal 150-400 [facility] Comment on above: Order Comment: Speci men Type: BLOOD SPECIMENOrdering Facility: [facility] Address: [address] [place] [address] Performed By: #### 5 7021-8 ####[facility] LABORATORYCLIA [id number] [address] [facility] RBC (Bld) [#/Vol] 2.89 10*6/uL Low 4.20-6.00 [facility] Comment on above: Order Comment: Speci men Type: BLOOD SPECIMENOrdering Facility: [facility] Address: [address] [place] [address] Performed By: #### 5 7021-8 ####[facility] LABORATORYCLIA [id number] [address] OF [facility] WBC (Bld) [#/Vol] 8.86 10*3/uL Normal 3.70-11.00 [facility] Comment on above: Order Comment: Speci men Type: BLOOD SPECIMENOrdering Facility: [facility] Address: [address] [place] [address] Performed By: #### 5 7021-8 ####[facility] LABORATORYCLIA [id number] [address] CBC panel Auto (Bld)on 08-11 Erythrocyte distribution width (RBC) [Ratio] 17.2 % High 11.5-15.0 [facility] Comment on above: Order Comment: Speci men Type: BLOOD SPECIMENOrdering Facility: [facility] Address: [address] [place] [address] Performed By: #### 5 8410-2 ####[facility] LABORATORYCLIA [id number] [address] Hematocrit (Bld) [Volume fraction] 27.0 % Low 39.0-51.0 [facility] Comment on above: Order Comment: Speci men Type: BLOOD SPECIMENOrdering Facility: [facility] Address: [address] [place] [address] Performed By: #### 5 8410-2 ####[facility] LABORATORYCLIA [id number] [address] [facility] Hemoglobin (Bld) [Mass/Vol] 8.3 g/dL Low 13.0-17.0 [facility] Comment on above: Order Comment: Speci men Type: BLOOD SPECIMENOrdering Facility: [facility] Address: [address] [place] [address] Performed By: #### 5 8410-2 ####[facility] LABORATORYCLIA [id number] [address] MCH (RBC) [Entitic mass] 28.7 pg Normal 26.0-34.0 [facility] Comment on above: Order Comment: Speci men Type: BLOOD SPECIMENOrdering Facility: [facility] Address: [address] [place] [address] Performed By: #### 5 8410-2 ####[facility] LABORATORYCLIA [id number] [address] MCHC (RBC) [Mass/Vol] 30.7 g/dL Normal 30.5-36.0 [facility] Comment on above: Order Comment: Speci men Type: BLOOD SPECIMENOrdering Facility: [facility] Address: [address] [place] [address] Performed By: #### 5 8410-2 ####[facility] LABORATORYCLIA [id number] [address] MCV (RBC) [Entitic vol] 93.4 fL Normal 80.0-100.0 [facility] Comment on above: Order Comment: Speci men Type: BLOOD SPECIMENOrdering Facility: [facility] Address: [address] [place] [address] Performed By: #### 5 8410-2 ####[facility] LABORATORYCLIA [id number] [address] Nucleated RBC (Bld) [#/Vol] 10*3/uL Normal <0.01 [facility] Comment on above: Order Comment: Speci men Type: BLOOD SPECIMENOrdering Facility: [facility] Address: [address] [place] [address] Performed By: #### 5 8410-2 ####[facility] LABORATORYCLIA [id number] [address] Platelet mean volume (Bld) [Entitic vol] 9.8 fL Normal 9.0-12.7 [facility] Comment on above: Order Comment: Speci men Type: BLOOD SPECIMENOrdering Facility: [facility] Address: [address] [place] [address] Performed By: #### 5 8410-2 ####[facility] LABORATORYCLIA [id number] [address] [place] Platelets (Bld) [#/Vol] 169 10*3/uL Normal 150-400 [facility] Comment on above: Order Comment: Speci men Type: BLOOD SPECIMENOrdering Facility: [facility] Address: [address] [place] [address] Performed By: #### 5 8410-2 ####[facility] LABORATORYCLIA [id number] [address] STATES OF [facility] RBC (Bld) [#/Vol] 2.89 10*6/uL Low 4.20-6.00 [facility] Comment on above: Order Comment: Speci men Type: BLOOD SPECIMENOrdering Facility: [facility] Address: [address] [place] [address] Performed By: #### 5 8410-2 ####[facility] LABORATORYCLIA [id number] [address] [place] WBC (Bld) [#/Vol] 9.03 10*3/uL Normal 3.70-11.00 [facility] Comment on above: Order Comment: Speci men Type: BLOOD SPECIMENOrdering Facility: [facility] Address: [address] [place] [address] Performed By: #### 5 8410-2 ####[facility] LABORATORYCLIA [id number] [address] OF [facility] CT BRAIN WO IVCONon 08-12-19 CT BRAIN WO IVCON Normal [facility] PT panel Coag (PPP)on 2021 INR Coag (PPP) [Relative time] 1.0 {INR} Normal 0.9-1.3 [facility] Comment on above: Order Comment: Shira feldman Type: BLOOD SPECIMENOrdering Facility: [facility] Address: [address] [id number] Result Comment: Yris min K Antagonist (VKA) [...] al. Chest 2012, 141:7S-47SNishimpatricia RA, et al. [facility] 2017, 70: 252-289 Performed By: #### 1 4979-9, 12599-1 ####[facility] LABORATORYCLIA [id number] [place] [address] [place] PT Coag (PPP) [Time] 11.4 s Normal 9.7-13.0 [facility] Comment on above: Order Comment: Shira feldman Type: BLOOD SPECIMENOrdering Facility: [facility] Address: [address] [place] [address] Performed By: #### 1 4979-9, 35106-9 ####[facility] LABORATORYCLIA [id number] [place] [address] [place] THERAPY NTon 08-11-2021 THERAPY NT Normal [facility] US DVT LOWER BILon 2 US DVT LOWER RAINER Normal [facility] US DVT UPPER BILon 2 US DVT UPPER RAINER Normal [facility] aPTT PPPon 08-11-2021 aPTT Coag (PPP) [Time] 26.9 s Normal 23.0-32.4 [facility] Comment on above: Order Comment: Speci men Type: BLOOD SPECIMENOrdering Facility: [facility] Address: [address] [place] [address] Performed By: #### 1 4979-9, 63476-8 ####[facility] LABORATORYCLIA [id number] [place] [address] [place] Basic metabolic 2000 panelon 08-10-2021 Anion gap [Moles/Vol] 11 mmol/L Normal 9-18 [facility] Comment on above: Order Comment: Speci men Type: BLOOD SPECIMENOrdering Facility: [facility] Address: [address] [place] [address] Performed By: #### 2 4321-2 ####[facility] LABORATORYCLIA [id number] [place] [address] [place] Calcium [Mass/Vol] 8.7 mg/dL Normal 8.5-10.2 [facility] Comment on above: Order Comment: Speci men Type: BLOOD SPECIMENOrdering Facility: [facility] Address: [address] [place] [address] Performed By: #### 2 4321-2 ####[facility] LABORATORYCLIA [id number] [place] [address] [place] Chloride [Moles/Vol] 98 mmol/L Normal 97-105 [facility] Comment on above: Order Comment: Speci men Type: BLOOD SPECIMENOrdering Facility: [facility] Address: [address] [place] [address] Performed By: #### 2 4321-2 ####[facility] LABORATORYCLIA [id number] [place] [address] [place] CO2 [Moles/Vol] 28 mmol/L Normal 22-30 [facility] Comment on above: Order Comment: Speci men Type: BLOOD SPECIMENOrdering Facility: [facility] Address: [address] [place] [address] Performed By: #### 2 4321-2 ####[facility] LABORATORYCLIA [id number] [address] STATES OF [facility] Creatinine [Mass/Vol] 0.59 mg/dL Low 0.73-1.22 [facility] Comment on above: Order Comment: Shira feldman Type: BLOOD SPECIMENOrdering Facility: [facility] Address: [address] [place] [address] Performed By: #### 2 4321-2 ####[facility] LABORATORYCLIA [id number] [address] ESTIMATED GLOMERULAR FILTRATION RATE 105 mL/min/1.73m??? Normal >=60 [facility] Comment on above: Order Comment: Shira feldman Type: BLOOD SPECIMENOrdering Facility: [facility] Address: [address] [place] [address] Result Comment: Luzmaria mated Glomerular Filtration Rate [...] 2 4321-2 ####[facility] LABORATORYCLIA [id number] [address] STATES OF [facility] Glucose [Mass/Vol] 118 mg/dL High 74-99 [facility] Comment on above: Order Comment: Shira francia Type: BLOOD SPECIMENOrdering Facility: [facility] Address: [address] [place] [address] Result Comment: The [place] [employer] (ADA) [...] 2 4321-2 ####[facility] LABORATORYCLIA [id number] [place] [address] [place] Potassium [Moles/Vol] 3.7 mmol/L Normal 3.7-5.1 [facility] Comment on above: Order Comment: Speci men Type: BLOOD SPECIMENOrdering Facility: [facility] Address: [address] [place] [address] Performed By: #### 2 4321-2 ####[facility] LABORATORYCLIA [id number] [place] [address] [place] Sodium [Moles/Vol] 137 mmol/L Normal 136-144 [facility] Comment on above: Order Comment: Speci men Type: BLOOD SPECIMENOrdering Facility: [facility] Address: [address] [place] [address] Performed By: #### 2 4321-2 ####[facility] LABORATORYCLIA [id number] [place] [address] [place] Urea nitrogen [Mass/Vol] 23 mg/dL Normal 9-24 [facility] Comment on above: Order Comment: Speci men Type: BLOOD SPECIMENOrdering Facility: [facility] Address: [address] [place] [address] Performed By: #### 2 4321-2 ####[facility] LABORATORYCLIA [id number] [place] [address] [place] Anion gap [Moles/Vol] 17 mmol/L Normal 9-18 [facility] Comment on above: Order Comment: Speci men Type: BLOOD SPECIMENOrdering Facility: [facility] Address: [address] [place] [address] Performed By: #### 1 9123-9, 2777-1, 91042-2 ####[facility] LABORATORYCLIA [id number] [place] [address] [place] Calcium [Mass/Vol] 7.7 mg/dL Low 8.5-10.2 [facility] Comment on above: Order Comment: Speci men Type: BLOOD SPECIMENOrdering Facility: [facility] Address: [address] [place] [address] Performed By: #### 1 9123-9, 27711-04, 24104-4 ####[facility] LABORATORYCLIA [id number] [place] [address] [place] Chloride [Moles/Vol] 86 mmol/L Low 97-105 [facility] Comment on above: Order Comment: Speci men Type: BLOOD SPECIMENOrdering Facility: [facility] Address: [address] [place] [address] Performed By: #### 1 9123-9, 27711-04, 24870-9 ####[facility] LABORATORYCLIA [id number] [address] [place] CO2 [Moles/Vol] 24 mmol/L Normal 22-30 [facility] Comment on above: Order Comment: Speci men Type: BLOOD SPECIMENOrdering Facility: [facility] Address: [address] [place] [address] Performed By: #### 1 9123-9, 27711-04, 46502-0 ####[facility] LABORATORYCLIA [id number] [place] [address] [place] Creatinine [Mass/Vol] 0.53 mg/dL Low 0.73-1.22 [facility] Comment on above: Order Comment: Speci men Type: BLOOD SPECIMENOrdering Facility: [facility] Address: [address] [place] [address] Performed By: #### 1 9123-9, 27711-04, 42421-2 ####[facility] LABORATORYCLIA [id number] [address] [place] ESTIMATED GLOMERULAR FILTRATION RATE 108 mL/min/1.73m??? Normal >=60 [facility] Comment on above: Order Comment: Shira feldman Type: BLOOD SPECIMENOrdering Facility: [facility] Address: [address] [place] [address] Result Comment: Luzmaria mated Glomerular Filtration Rate [...] GFR. Performed By: #### 1 9123-9, 2777-1, 92215-4 ####[facility]ITALCLIA [id number] [place] [address] [place] Glucose [Mass/Vol] 455 mg/dL High 74-99 [facility] Comment on above: Order Comment: Shira feldman Type: BLOOD SPECIMENOrdering Facility: [facility] Address: [address] [place] [address] Result Comment: The [place] [employer] (ADA) [...] 1). Performed By: #### 1 9123-9, 2777-1, 81968-9 ####[facility]ORATORYCLIA [id number] [place] [address] [place] Potassium [Moles/Vol] 3.4 mmol/L Low 3.7-5.1 [facility] Comment on above: Order Comment: Shira [facility] Type: BLOOD SPECIMENOrdering Facility: [facility] Address: [address] [place] [address] Performed By: #### 1 9123-9, 2777-1, 68915-5 ####[facility] LABORATORYCLIA [id number] [address] [place] Sodium [Moles/Vol] 127 mmol/L Low 136-144 [facility] Comment on above: Order Comment: Speci men Type: BLOOD SPECIMENOrdering Facility: [facility] Address: [address] [place] [address] Performed By: #### 1 9123-9, 2777-1, 44417-7 ####[facility]ORATORYCLIA [id number] [address] [place] Urea nitrogen [Mass/Vol] 21 mg/dL Normal 9-24 [facility] Comment on above: Order Comment: Speci men Type: BLOOD SPECIMENOrdering Facility: [facility] Address: [address] [place] [address] Performed By: #### 1 9123-9, 2777-, 24212-2 ####[facility]ORATORYCLIA [id number] [address] [place] CASE MANAGEMon 08-10-2021 CASE MANAGEM Normal [facility] CBC W Auto Differential pane l (Bld)on 08-10-2021 Basophils (Bld) [#/Vol] 0.04 10*3/uL Normal <0.11 [facility] Comment on above: Order Comment: Speci men Type: BLOOD SPECIMENOrdering Facility: [facility] Address: [address] [place] [address] Performed By: #### 5 7021-8 ####[facility] LABORATORYCLIA [id number] [address] [place] Basophils/100 WBC (Bld) 0.4 % Normal [facility] Comment on above: Order Comment: Speci men Type: BLOOD SPECIMENOrdering Facility: [facility] Address: [address] [place] [address] Performed By: #### 5 7021-8 ####[facility] LABORATORYCLIA [id number] [address] Differential cell count method Nom (Bld) Auto Normal [facility] Comment on above: Order Comment: Speci men Type: BLOOD SPECIMENOrdering Facility: [facility] Address: [address] [place] [address] Performed By: #### 5 7021-8 ####[facility]ORATORYCLIA [id number] [address] Eosinophils (Bld) [#/Vol] 0.11 10*3/uL Normal <0.46 [facility] Comment on above: Order Comment: Speci men Type: BLOOD SPECIMENOrdering Facility: [facility] Address: [address] [place] [address] Performed By: #### 5 7021-8 ####[facility]ORATORYCLIA [id number] [address] Eosinophils/100 WBC (Bld) 1.1 % Normal [facility] Comment on above: Order Comment: Speci men Type: BLOOD SPECIMENOrdering Facility: [facility] Address: [address] [place] [address] Performed By: #### 5 7021-8 ####[facility] LABORATORYCLIA [id number] [address] Erythrocyte distribution width (RBC) [Ratio] 17.2 % High 11.5-15.0 [facility] Comment on above: Order Comment: Speci men Type: BLOOD SPECIMENOrdering Facility: [facility] Address: [address] [place] [address] Performed By: #### 5 7021-8 ####[facility]ORATORYCLIA [id number] [address] Hematocrit (Bld) [Volume fraction] 25.5 % Low 39.0-51.0 [facility] Comment on above: Order Comment: Speci men Type: BLOOD SPECIMENOrdering Facility: [facility] Address: [address] [place] [address] Performed By: #### 5 7021-8 ####[facility]ORATORYCLIA [id number] [address] Hemoglobin (Bld) [Mass/Vol] 7.9 g/dL Low 13.0-17.0 [facility] Comment on above: Order Comment: Speci men Type: BLOOD SPECIMENOrdering Facility: [facility] Address: [address] [place] [address] Performed By: #### 5 7021-8 ####[facility]ORATORYCLIA [id number] [address] IMMATURE GRAN % 0.4 % Normal [facility] Comment on above: Order Comment: Speci men Type: BLOOD SPECIMENOrdering Facility: [facility] Address: [address] [place] [address] Performed By: #### 5 7021-8 ####[facility]ORATORYCLIA [id number] [address] IMMATURE GRAN ABS 0.04 k/uL Normal <0.10 [facility] Comment on above: Order Comment: Speci men Type: BLOOD SPECIMENOrdering Facility: [facility] Address: [address] [place] [address] Performed By: #### 5 7021-8 ####[facility]ORATORYCLIA [id number] [address] Lymphocytes (Bld) [#/Vol] 1.66 10*3/uL Normal 1.00-4.00 [facility] Comment on above: Order Comment: Speci men Type: BLOOD SPECIMENOrdering Facility: [facility] Address: [address] [place] [address] Performed By: #### 5 7021-8 ####[facility]ORATORYCLIA [id number] [address] Lymphocytes/100 WBC (Bld) 16.2 % Normal [facility] Comment on above: Order Comment: Speci men Type: BLOOD SPECIMENOrdering Facility: [facility] Address: [address] [place] [address] Performed By: #### 5 7021-8 ####[facility]ORATORYCLIA [id number] [address] MCH (RBC) [Entitic mass] 28.5 pg Normal 26.0-34.0 [facility] Comment on above: Order Comment: Speci men Type: BLOOD SPECIMENOrdering Facility: [facility] Address: [address] [place] [address] Performed By: #### 5 7021-8 ####[facility]ORATORYCLIA [id number] [address] MCHC (RBC) [Mass/Vol] 31.0 g/dL Normal 30.5-36.0 [facility] Comment on above: Order Comment: Speci men Type: BLOOD SPECIMENOrdering Facility: [facility] Address: [address] [place] [address] Performed By: #### 5 7021-8 ####[facility]ORATORYCLIA [id number] [address] MCV (RBC) [Entitic vol] 92.1 fL Normal 80.0-100.0 [facility] Comment on above: Order Comment: Speci men Type: BLOOD SPECIMENOrdering Facility: [facility] Address: [address] [place] [address] Performed By: #### 5 7021-8 ####[facility]ORATORYCLIA [id number] [address] Monocytes (Bld) [#/Vol] 0.51 10*3/uL Normal <0.87 [facility] Comment on above: Order Comment: Speci men Type: BLOOD SPECIMENOrdering Facility: [facility] Address: [address] [place] [address] Performed By: #### 5 7021-8 ####[facility]PITALCLIA [id number] [address] [place] Monocytes/100 WBC (Bld) 5.0 % Normal [facility] Comment on above: Order Comment: Speci men Type: BLOOD SPECIMENOrdering Facility: [facility] Address: [address] [place] [address] Performed By: #### 5 7021-8 ####[facility] LABORATORYCLIA [id number] [place] [address] [place] Neutrophils (Bld) [#/Vol] 7.91 10*3/uL High 1.45-7.50 [facility] Comment on above: Order Comment: Speci men Type: BLOOD SPECIMENOrdering Facility: [facility] Address: [address] [place] [address] Performed By: #### 5 7021-8 ####[facility]ORATORYCLIA [id number] [address] Neutrophils/100 WBC (Bld) 76.9 % Normal [facility] Comment on above: Order Comment: Speci men Type: BLOOD SPECIMENOrdering Facility: [facility] Address: [address] [place] [address] Performed By: #### 5 7021-8 ####[facility]ORATORYCLIA [id number] [address] [place] Nucleated RBC (Bld) [#/Vol] 10*3/uL Normal <0.01 [facility] Comment on above: Order Comment: Speci men Type: BLOOD SPECIMENOrdering Facility: [facility] Address: [address] [place] [address] Performed By: #### 5 7021-8 ####[facility] LABORATORYCLIA [id number] [address] [place] Nucleated RBC/100 WBC (Bld) [Ratio] 0.0 /100 WBC Normal [facility] Comment on above: Order Comment: Speci men Type: BLOOD SPECIMENOrdering Facility: [facility] Address: [address] Performed By: #### 5 7021-8 ####[facility] LABORATORYCLIA [id number] [address] Platelet mean volume (Bld) [Entitic vol] 10.3 fL Normal 9.0-12.7 [facility] Comment on above: Order Comment: Speci men Type: BLOOD SPECIMENOrdering Facility: [facility] Address: [address] [place], [place] [address] Performed By: #### 5 7021-8 ####[facility] LABORATORYCLIA [id number] [address] [place] Platelets (Bld) [#/Vol] 152 10*3/uL Normal 150-400 [facility] Comment on above: Order Comment: Speci men Type: BLOOD SPECIMENOrdering Facility: [facility] Address: [address] [place], [place] [address] Performed By: #### 5 7021-8 ####[facility]ORATORYCLIA [id number] [address] [place] RBC (Bld) [#/Vol] 2.77 10*6/uL Low 4.20-6.00 [facility] Comment on above: Order Comment: Speci men Type: BLOOD SPECIMENOrdering Facility: [facility] Address: [address] [place], [place] [address] Performed By: #### 5 7021-8 ####[facility]ORATORYCLIA [id number] [address] [place] WBC (Bld) [#/Vol] 10.27 10*3/uL Normal 3.70-11.00 [facility] Comment on above: Order Comment: Speci men Type: BLOOD SPECIMENOrdering Facility: [facility] Address: [address] [place], [place] [address] Performed By: #### 5 7021-8 ####[facility]ORATORYCLIA [id number] [address] Magnesium SerPl-mCncon 08-10 Magnesium [Mass/Vol] 1.8 mg/dL Normal 1.7-2.3 [facility] Comment on above: Order Comment: Speci men Type: BLOOD SPECIMENOrdering Facility: [facility] Address: [address] [place] [address] Performed By: #### 1 9123-9, 2777-1, 75547-3 ####[facility] LABORATORYCLIA [id number] [address] NURSING PROGon 08-10-2021 NURSING PROG Normal [facility] NURSING PROG Normal [facility] NUTRITIONon 08-10-2021 NUTRITION Normal [facility] Phosphate SerPl-mCncon 08-10 Phosphate [Mass/Vol] 3.7 mg/dL Normal 2.7-4.8 [facility] Comment on above: Order Comment: Speci men Type: BLOOD SPECIMENOrdering Facility: [facility] Address: [address] [place] [address] Performed By: #### 1 9123-9, 2777-1, 84533-7 ####[facility] LABORATORYCLIA [id number] [address] ALLIED HEALTHon 08-09-2021 ALLIED HEALTH Normal [facility] ANES POSTPROC EVALon 022 ANES POSTPROC EVAL Normal [facility] ANES PRE-OPon 08-09-2021 ANES PRE-OP Normal [facility] BRIEF OP NOTon 08-09-2021 BRIEF OP NOT Normal [facility] Basic metabolic 2000 panelon 08-09-2021 Anion gap [Moles/Vol] 8 mmol/L Low 9-18 [facility] Comment on above: Order Comment: Speci men Type: BLOOD SPECIMENOrdering Facility: [facility] Address: [address] [place] [address] Performed By: #### 2 4321-2, 36006-6, 2777-1 ####[facility] LABORATORYCLIA [id number] [address] STATES OF [facility] Calcium [Mass/Vol] 9.2 mg/dL Normal 8.5-10.2 [facility] Comment on above: Order Comment: Speci men Type: BLOOD SPECIMENOrdering Facility: [facility] Address: [address] [place] [address] Performed By: #### 2 4321-2, , 2776-05 ####[facility] LABORATORYCLIA [id number] [place] [address] [place] Chloride [Moles/Vol] 97 mmol/L Normal 97-105 [facility] Comment on above: Order Comment: Speci men Type: BLOOD SPECIMENOrdering Facility: [facility] Address: [address] [place] [address] Performed By: #### 2 4321-2, , 2776-05 ####[facility] LABORATORYCLIA [id number] [address] STATES OF [facility] CO2 [Moles/Vol] 30 mmol/L Normal 22-30 [facility] Comment on above: Order Comment: Speci men Type: BLOOD SPECIMENOrdering Facility: [facility] Address: [address] [place] [address] Performed By: #### 2 4321-2, , 2776-05 ####[facility] LABORATORYCLIA [id number] [address] [place] Creatinine [Mass/Vol] 0.51 mg/dL Low 0.73-1.22 [facility] Comment on above: Order Comment: Speci men Type: BLOOD SPECIMENOrdering Facility: [facility] Address: [address] [place] [address] Performed By: #### 2 4321-2, , 2776-05 ####[facility] LABORATORYCLIA [id number] [address] [place] ESTIMATED GLOMERULAR FILTRATION RATE 110 mL/min/1.73m??? Normal >=60 [facility] Comment on above: Order Comment: Shira feldman Type: BLOOD SPECIMENOrdering Facility: [facility] Address: [address] [place] [address] Result Comment: Luzmaria mated Glomerular Filtration Rate [...] actual GFR. Performed By: #### 2 4321-2, 42360-2, 2776-05 ####[facility] LABORATORYCLIA [id number] [place] [address] [place] Glucose [Mass/Vol] 106 mg/dL High 74-99 [facility] Comment on above: Order Comment: Shira feldman Type: BLOOD SPECIMENOrdering Facility: [facility] Address: [address] [place] [address] Result Comment: [employer] [place] (ADA) [...] , 2776-05 ####[facility] LABORATORYCLIA [id number] [place] [address] [place] Potassium [Moles/Vol] 4.1 mmol/L Normal 3.7-5.1 [facility] Comment on above: Order Comment: Shira feldman Type: BLOOD SPECIMENOrdering Facility: [facility] Address: [address] [place] [address] Performed By: #### 2 4321-2, , 1 ####[facility] [facility]ATORYCLIA [id number] [address] [place] OF [facility] Sodium [Moles/Vol] 135 mmol/L Low 136-144 [facility] Comment on above: Order Comment: Speci men Type: BLOOD SPECIMENOrdering Facility: [facility] Address: [address] [place] [address] Performed By: #### 2 4321-2, , 2776-05 ####[facility] LABORATORYCLIA [id number] [address] [place] Urea nitrogen [Mass/Vol] 26 mg/dL High 9-24 [facility] Comment on above: Order Comment: Speci men Type: BLOOD SPECIMENOrdering Facility: [facility] Address: [address] [place] [address] Performed By: #### 2 4321-2, , 2776-05 ####[facility] LABORATORYCLIA [id number] [address] [place] CBC W Auto Differential pane l (Bld)on 08-09-2021 Basophils (Bld) [#/Vol] 0.06 10*3/uL Normal <0.11 [facility] Comment on above: Order Comment: Speci men Type: BLOOD SPECIMENOrdering Facility: [facility] Address: [address] [place] [address] Performed By: #### 5 7021-8 ####[facility] LABORATORYCLIA [id number] [address] [place] Basophils/100 WBC (Bld) 0.5 % Normal [facility] Comment on above: Order Comment: Speci men Type: BLOOD SPECIMENOrdering Facility: [facility] Address: [address] [place] [address] Performed By: #### 5 7021-8 ####[facility] LABORATORYCLIA [id number] [address] Differential cell count method Nom (Bld) Auto Normal [facility] Comment on above: Order Comment: Speci men Type: BLOOD SPECIMENOrdering Facility: [facility] Address: [address] [place] [address] Performed By: #### 5 7021-8 ####[facility] LABORATORYCLIA [id number] [address] [place] Eosinophils (Bld) [#/Vol] 0.42 10*3/uL Normal <0.46 [facility] Comment on above: Order Comment: Speci men Type: BLOOD SPECIMENOrdering Facility: [facility] Address: [address] [place] [address] Performed By: #### 5 7021-8 ####[facility] LABORATORYCLIA [id number] [address] Eosinophils/100 WBC (Bld) 3.8 % Normal [facility] Comment on above: Order Comment: Speci men Type: BLOOD SPECIMENOrdering Facility: [facility] Address: [address] [place] [address] Performed By: #### 5 7021-8 ####[facility] LABORATORYCLIA [id number] [address] [place] Erythrocyte distribution width (RBC) [Ratio] 17.6 % High 11.5-15.0 [facility] Comment on above: Order Comment: Speci men Type: BLOOD SPECIMENOrdering Facility: [facility] Address: [address] [place] [address] Performed By: #### 5 7021-8 ####[facility] LABORATORYCLIA [id number] [address] Hematocrit (Bld) [Volume fraction] 29.3 % Low 39.0-51.0 [facility] Comment on above: Order Comment: Speci men Type: BLOOD SPECIMENOrdering Facility: [facility] Address: [address] [place] [address] Performed By: #### 5 7021-8 ####[facility] LABORATORYCLIA [id number] [address] [place] OF [facility] Hemoglobin (Bld) [Mass/Vol] 9.0 g/dL Low 13.0-17.0 [facility] Comment on above: Order Comment: Speci men Type: BLOOD SPECIMENOrdering Facility: [facility] Address: [address] [place] [address] Performed By: #### 5 7021-8 ####[facility] LABORATORYCLIA [id number] [address] IMMATURE GRAN % 0.5 % Normal [facility] Comment on above: Order Comment: Speci men Type: BLOOD SPECIMENOrdering Facility: [facility] Address: [address] [place] [address] Performed By: #### 5 7021-8 ####[facility] LABORATORYCLIA [id number] [address] IMMATURE GRAN ABS 0.05 k/uL Normal <0.10 [facility] Comment on above: Order Comment: Speci men Type: BLOOD SPECIMENOrdering Facility: [facility] Address: [address] [place] [address] Performed By: #### 5 7021-8 ####[facility] LABORATORYCLIA [id number] [address] [place] Lymphocytes (Bld) [#/Vol] 2.00 10*3/uL Normal 1.00-4.00 [facility] Comment on above: Order Comment: Speci men Type: BLOOD SPECIMENOrdering Facility: [facility] Address: [address] [place] [address] Performed By: #### 5 7021-8 ####[facility] LABORATORYCLIA [id number] [address] Lymphocytes/100 WBC (Bld) 18.1 % Normal [facility] Comment on above: Order Comment: Speci men Type: BLOOD SPECIMENOrdering Facility: [facility] Address: [address] [place] [address] Performed By: #### 5 7021-8 ####[facility] LABORATORYCLIA [id number] [address] MCH (RBC) [Entitic mass] 28.1 pg Normal 26.0-34.0 [facility] Comment on above: Order Comment: Speci men Type: BLOOD SPECIMENOrdering Facility: [facility] Address: [address] [place] [address] Performed By: #### 5 7021-8 ####[facility] LABORATORYCLIA [id number] [address] MCHC (RBC) [Mass/Vol] 30.7 g/dL Normal 30.5-36.0 [facility] Comment on above: Order Comment: Speci men Type: BLOOD SPECIMENOrdering Facility: [facility] Address: [address] [place] [address] Performed By: #### 5 7021-8 ####[facility] LABORATORYCLIA [id number] [address] STATES OF [facility] MCV (RBC) [Entitic vol] 91.6 fL Normal 80.0-100.0 [facility] Comment on above: Order Comment: Speci men Type: BLOOD SPECIMENOrdering Facility: [facility] Address: [address] [place] [address] Performed By: #### 5 7021-8 ####[facility] LABORATORYCLIA [id number] [address] Monocytes (Bld) [#/Vol] 0.68 10*3/uL Normal <0.87 [facility] Comment on above: Order Comment: Speci men Type: BLOOD SPECIMENOrdering Facility: [facility] Address: [address] [place] [address] Performed By: #### 5 7021-8 ####[facility] LABORATORYCLIA [id number] [address] Monocytes/100 WBC (Bld) 6.2 % Normal [facility] Comment on above: Order Comment: Speci men Type: BLOOD SPECIMENOrdering Facility: [facility] Address: [address] [place] [address] Performed By: #### 5 7021-8 ####[facility]ORATORYCLIA [id number] [address] [place] Neutrophils (Bld) [#/Vol] 7.82 10*3/uL High 1.45-7.50 [facility] Comment on above: Order Comment: Speci men Type: BLOOD SPECIMENOrdering Facility: [facility] Address: [address] [place] [address] Performed By: #### 5 7021-8 ####[facility]ORATORYCLIA [id number] [address] [place] Neutrophils/100 WBC (Bld) 70.9 % Normal [facility] Comment on above: Order Comment: Speci men Type: BLOOD SPECIMENOrdering Facility: [facility] Address: [address] [place], [place] [address] Performed By: #### 5 7021-8 ####[facility]ORATORYCLIA [id number] [address] [place] Nucleated RBC (Bld) [#/Vol] 10*3/uL Normal <0.01 [facility] Comment on above: Order Comment: Speci men Type: BLOOD SPECIMENOrdering Facility: [facility] Address: [address] [place], [place] [address] Performed By: #### 5 7021-8 ####[facility]ORATORYCLIA [id number] [address] [place] Nucleated RBC/100 WBC (Bld) [Ratio] 0.0 /100 WBC Normal [facility] Comment on above: Order Comment: Speci men Type: BLOOD SPECIMENOrdering Facility: [facility] Address: [address] [place] [address] Performed By: #### 5 7021-8 ####[facility]ORATORYCLIA [id number] [address] [place] Platelet mean volume (Bld) [Entitic vol] 10.1 fL Normal 9.0-12.7 [facility] Comment on above: Order Comment: Speci men Type: BLOOD SPECIMENOrdering Facility: [facility] Address: [address] [place] [address] Performed By: #### 5 7021-8 ####[facility] LABORATORYCLIA [id number] [address] [place] Platelets (Bld) [#/Vol] 160 10*3/uL Normal 150-400 [facility] Comment on above: Order Comment: Speci men Type: BLOOD SPECIMENOrdering Facility: [facility] Address: [address] [place] [address] Performed By: #### 5 7021-8 ####[facility] LABORATORYCLIA [id number] [place] [address] [place] RBC (Bld) [#/Vol] 3.20 10*6/uL Low 4.20-6.00 [facility] Comment on above: Order Comment: Speci men Type: BLOOD SPECIMENOrdering Facility: [facility] Address: [address] [place] [address] Performed By: #### 5 7021-8 ####[facility] LABORATORYCLIA [id number] [place] [address] [place] WBC (Bld) [#/Vol] 11.03 10*3/uL High 3.70-11.00 [facility] Comment on above: Order Comment: Speci men Type: BLOOD SPECIMENOrdering Facility: [facility] Address: [address] [place] [address] Performed By: #### 5 7021-8 ####[facility] LABORATORYCLIA [id number] [address] [place] CONSULT PROGon 08-09-2021 CONSULT PROG Normal [facility] CT BRAIN WO IVCONon 08-10-[address] BRAIN WO IVCON Normal [facility] CT BRAIN WO IVCON Normal [facility] Magnesium SerPl-mCncon 08-09 Magnesium [Mass/Vol] 2.0 mg/dL Normal 1.7-2.3 [facility] Comment on above: Order Comment: Speci men Type: BLOOD SPECIMENOrdering Facility: [facility] Address: [address] [place] [address] Performed By: #### 2 4321-2, 56466-5, 2777-1 ####[facility] LABORATORYCLIA [id number] [address] OF [facility] NURSING PROGon 08-09-2021 NURSING PROG Normal [facility] OPERATIVE NOon 08-09-2021 OPERATIVE NO Normal [facility] PT panel Coag (PPP)on 2021 INR Coag (PPP) [Relative time] 1.1 {INR} Normal 0.9-1.3 [facility] Comment on above: Order Comment: Speci men Type: BLOOD SPECIMENOrdering Facility: [facility] Address: [address] [place] [address] Result Comment: Yris min K Antagonist (VKA) [...] al. Chest 2012, 141:7S-47SAlba MURRY, et al. [facility] 2017, 70: 252-289 Performed By: #### 3 4528-0, 07706-9 ####[facility] LABORATORYCLIA [id number] [address] [place] PT Coag (PPP) [Time] 11.7 s Normal 9.7-13.0 [facility] Comment on above: Order Comment: Speci men Type: BLOOD SPECIMENOrdering Facility: [facility] Address: [address] [place] [address] Performed By: #### 3 4528-0, 41427-3 ####[facility] LABORATORYCLIA [id number] [address] OF [place] Phosphate SerPl-mCncon 08-09 Phosphate [Mass/Vol] 4.0 mg/dL Normal 2.7-4.8 [facility] Comment on above: Order Comment: Speci men Type: BLOOD SPECIMENOrdering Facility: [facility] Address: [address] [place] [address] Performed By: #### 2 4321-2, 97945-8, 2777-1 ####[facility] LABORATORYCLIA [id number] [address] OF [facility] THERAPY NTon 08-09-2021 THERAPY NT Normal [facility] THERAPY NT Normal [facility] TYPE AND SCREENon 08-09-2021 ABO O Normal [facility] Comment on above: Order Comment: Speci men Type: BLOOD SPECIMENOrdering Facility: [facility] Address: [address] [place] [address] Performed By: #### T SCR ####[facility] BLOOD BANKCLIA [id number] [address] [place] HISTORICAL AB SCR STATUS Negative Normal [facility] Comment on above: Order Comment: Speci men Type: BLOOD SPECIMENOrdering Facility: [facility] Address: [address] [place] [address] Performed By: #### T SCR ####[facility] BLOOD BANKCLIA [id number] [address] Rh Nom (Bld) Positive Normal [facility] Comment on above: Order Comment: Speci men Type: BLOOD SPECIMENOrdering Facility: [facility] Address: [address] [place] [address] Performed By: #### T SCR ####[facility] BLOOD BANKCLIA [id number] [address] TYPE AND SCREEN EXPIRATION 08/12/2021 23:59 Normal [facility] Comment on above: Order Comment: Speci men Type: BLOOD SPECIMENOrdering Facility: [facility] Address: [address] [place] [address] Performed By: #### T SCR ####[facility] BLOOD BANKCLIA [id number] [address] XR ABD 2V SUPINE W UPR/DECUB /CTLon 08-09-2021 XR ABD 2V SUPINE W UPR/DECUB/CTL Normal [facility] XR CHEST 1V FRONTALon 2021 XR CHEST 1V FRONTAL Normal [facility] XR NECK SOFT TISSUE 2V AP/LA Ton 08-09-2021 XR NECK SOFT TISSUE 2V AP/LAT Normal [facility] XR SKULL 2V AP/LATon 022 XR SKULL 2V AP/LAT Normal [facility] aPTT PPPon 08-09-2021 aPTT Coag (PPP) [Time] 26.8 s Normal 23.0-32.4 [facility] Comment on above: Order Comment: Speci men Type: BLOOD SPECIMENOrdering Facility: [facility] Address: [address] [place] [address] Performed By: #### 3 4528-0, 88390-8 ####[facility] LABORATORYCLIA [id number] [address] CASE MANAGEMon 08-08-2021 CASE MANAGEM Normal [facility] CBC W Auto Differential pane l (Bld)on 08-08-2021 Basophils (Bld) [#/Vol] 0.05 10*3/uL Normal <0.11 [facility] Comment on above: Order Comment: Speci men Type: BLOOD SPECIMENOrdering Facility: [facility] Address: [address] [address] Performed By: #### 5 7021-8 ####[facility]ORATORYCLIA [id number] [address] Basophils/100 WBC (Bld) 0.5 % Normal [facility] Comment on above: Order Comment: Speci men Type: BLOOD SPECIMENOrdering Facility: [facility] Address: [address] [place] [address] Performed By: #### 5 7021-8 ####[facility] LABORATORYCLIA [id number] [address] Differential cell count method Nom (Bld) Auto Normal [facility] Comment on above: Order Comment: Speci men Type: BLOOD SPECIMENOrdering Facility: [facility] Address: [address] [place] [address] Performed By: #### 5 7021-8 ####[facility] LABORATORYCLIA [id number] [address] [place] Eosinophils (Bld) [#/Vol] 0.17 10*3/uL Normal <0.46 [facility] Comment on above: Order Comment: Speci men Type: BLOOD SPECIMENOrdering Facility: [facility] Address: [address] [place] [address] Performed By: #### 5 7021-8 ####[facility]ORATORYCLIA [id number] [address] Eosinophils/100 WBC (Bld) 1.6 % Normal [facility] Comment on above: Order Comment: Speci men Type: BLOOD SPECIMENOrdering Facility: [facility] Address: [address] [place] [address] Performed By: #### 5 7021-8 ####[facility]ORATORYCLIA [id number] [address] [place] Erythrocyte distribution width (RBC) [Ratio] 17.8 % High 11.5-15.0 [facility] Comment on above: Order Comment: Speci men Type: BLOOD SPECIMENOrdering Facility: [facility] Address: [address] [place] [address] Performed By: #### 5 7021-8 ####[facility] LABORATORYCLIA [id number] [address] Hematocrit (Bld) [Volume fraction] 29.6 % Low 39.0-51.0 [facility] Comment on above: Order Comment: Speci men Type: BLOOD SPECIMENOrdering Facility: [facility] Address: [address] [place] [address] Performed By: #### 5 7021-8 ####[facility] LABORATORYCLIA [id number] [address] Hemoglobin (Bld) [Mass/Vol] 9.0 g/dL Low 13.0-17.0 [facility] Comment on above: Order Comment: Speci men Type: BLOOD SPECIMENOrdering Facility: [facility] Address: [address] [place] [address] Performed By: #### 5 7021-8 ####[facility] LABORATORYCLIA [id number] [address] IMMATURE GRAN % 0.5 % Normal [facility] Comment on above: Order Comment: Speci men Type: BLOOD SPECIMENOrdering Facility: [facility] Address: [address] [place] [address] Performed By: #### 5 7021-8 ####[facility] LABORATORYCLIA [id number] [address] IMMATURE GRAN ABS 0.05 k/uL Normal <0.10 [facility] Comment on above: Order Comment: Speci men Type: BLOOD SPECIMENOrdering Facility: [facility] Address: [address] [place] [address] Performed By: #### 5 7021-8 ####[facility] LABORATORYCLIA [id number] [place] [address] [place] Lymphocytes (Bld) [#/Vol] 1.93 10*3/uL Normal 1.00-4.00 [facility] Comment on above: Order Comment: Speci men Type: BLOOD SPECIMENOrdering Facility: [facility] Address: [address] [place] [address] Performed By: #### 5 7021-8 ####[facility] LABORATORYCLIA [id number] [address] [place] Lymphocytes/100 WBC (Bld) 18.2 % Normal [facility] Comment on above: Order Comment: Speci men Type: BLOOD SPECIMENOrdering Facility: [facility] Address: [address] [place] [address] Performed By: #### 5 7021-8 ####[facility] LABORATORYCLIA [id number] [address] [place] MCH (RBC) [Entitic mass] 28.1 pg Normal 26.0-34.0 [facility] Comment on above: Order Comment: Speci men Type: BLOOD SPECIMENOrdering Facility: [facility] Address: [address] [place] [address] Performed By: #### 5 7021-8 ####[facility] LABORATORYCLIA [id number] [address] [place] MCHC (RBC) [Mass/Vol] 30.4 g/dL Low 30.5-36.0 [facility] Comment on above: Order Comment: Speci men Type: BLOOD SPECIMENOrdering Facility: [facility] Address: [address] [place] [address] Performed By: #### 5 7021-8 ####[facility] LABORATORYCLIA [id number] [address] MCV (RBC) [Entitic vol] 92.5 fL Normal 80.0-100.0 [facility] Comment on above: Order Comment: Speci men Type: BLOOD SPECIMENOrdering Facility: [facility] Address: [address] [place] [address] Performed By: #### 5 7021-8 ####[facility] LABORATORYCLIA [id number] [place] [address] [place] Monocytes (Bld) [#/Vol] 0.75 10*3/uL Normal <0.87 [facility] Comment on above: Order Comment: Speci men Type: BLOOD SPECIMENOrdering Facility: [facility] Address: [address] [place] [address] Performed By: #### 5 7021-8 ####[facility]ORATORYCLIA [id number] [address] [place] Monocytes/100 WBC (Bld) 7.1 % Normal [facility] Comment on above: Order Comment: Speci men Type: BLOOD SPECIMENOrdering Facility: [facility] Address: [address] [place] [address] Performed By: #### 5 7021-8 ####[facility] LABORATORYCLIA [id number] [address] [place] Neutrophils (Bld) [#/Vol] 7.65 10*3/uL High 1.45-7.50 [facility] Comment on above: Order Comment: Speci men Type: BLOOD SPECIMENOrdering Facility: [facility] Address: [address] [place] [address] Performed By: #### 5 7021-8 ####[facility]ORATORYCLIA [id number] [address] [place] Neutrophils/100 WBC (Bld) 72.1 % Normal [facility] Comment on above: Order Comment: Speci men Type: BLOOD SPECIMENOrdering Facility: [facility] Address: [address] [place] [address] Performed By: #### 5 7021-8 ####[facility] LABORATORYCLIA [id number] [place] [address] [place] Nucleated RBC (Bld) [#/Vol] 10*3/uL Normal <0.01 [facility] Comment on above: Order Comment: Speci men Type: BLOOD SPECIMENOrdering Facility: [facility] Address: [address] [place] [address] Performed By: #### 5 7021-8 ####[facility] LABORATORYCLIA [id number] [address] Nucleated RBC/100 WBC (Bld) [Ratio] 0.0 /100 WBC Normal [facility] Comment on above: Order Comment: Speci men Type: BLOOD SPECIMENOrdering Facility: [facility] Address: [address] [place] [address] Performed By: #### 5 7021-8 ####[facility] LABORATORYCLIA [id number] [address] [place] Platelet mean volume (Bld) [Entitic vol] 9.8 fL Normal 9.0-12.7 [facility] Comment on above: Order Comment: Speci men Type: BLOOD SPECIMENOrdering Facility: [facility] Address: [address] [place] [address] Performed By: #### 5 7021-8 ####[facility] LABORATORYCLIA [id number] [address] [place] Platelets (Bld) [#/Vol] 175 10*3/uL Normal 150-400 [facility] Comment on above: Order Comment: Speci men Type: BLOOD SPECIMENOrdering Facility: [facility] Address: [address] [place] [address] Performed By: #### 5 7021-8 ####[facility] LABORATORYCLIA [id number] [address] [place] RBC (Bld) [#/Vol] 3.20 10*6/uL Low 4.20-6.00 [facility] Comment on above: Order Comment: Speci men Type: BLOOD SPECIMENOrdering Facility: [facility] Address: [address] [place] [address] Performed By: #### 5 7021-8 ####[facility] LABORATORYCLIA [id number] [address] [place] WBC (Bld) [#/Vol] 10.60 10*3/uL Normal 3.70-11.00 [facility] Comment on above: Order Comment: Speci men Type: BLOOD SPECIMENOrdering Facility: [facility] Address: [address] [place] [address] Performed By: #### 5 7021-8 ####[facility] LABORATORYCLIA [id number] [address] [place] CT BRAIN WO IVCONon 08-09-19 CT BRAIN WO IVCON Normal [facility] NURSING PROGon 08-08-2021 NURSING PROG Normal [facility] Prealbumin [Mass/Vol]on Prealbumin Nephelometry [Mass/Vol] 29 mg/dL Normal 17-36 [facility] Comment on above: Order Comment: Speci men Type: BLOOD SPECIMENOrdering Facility: [facility] Address: [address] [place] [address] Performed By: #### 1 4338-8 ####[facility] LABORATORYCLIA [id number] [address] OF [facility] SARS-CoV-2 RNA Resp Ql MEGAN+p robeon 08-08-2021 SARS-CoV-2 (COVID-19) RNA MEGAN+probe Ql (Resp) COVID 19 RESULT: SARS-CoV-2 (Agent of COVID-19) Not Detected by RT-PCR or equivalent method. This test has been authorized by FDA under an Emergency Use Authorization (EUA). Normal [facility] Comment on above: Performed By: #### 9 4500-6 ####[facility] LABORATORYCLIA [id number] [address] [place] ALLIED HEALTHon 08-07-2021 ALLIED HEALTH Normal [facility] Basic metabolic 2000 panelon 08-07-2021 Anion gap [Moles/Vol] 9 mmol/L Normal 9-18 [facility] Comment on above: Order Comment: Speci men Type: BLOOD SPECIMENOrdering Facility: [facility] Address: [id number] Performed By: #### 2 4321-2, 2776-, , HFP ####[facility] LABORATORYCLIA [id number] [place] [address] [place] Calcium [Mass/Vol] 9.4 mg/dL Normal 8.5-10.2 [facility] Comment on above: Order Comment: Speci men Type: BLOOD SPECIMENOrdering Facility: [facility] Address: [address] [place] [address] Performed By: #### 2 4321-2, 2776-05, , HFP ####[facility] LABORATORYCLIA [id number] [place] [address] [place] Chloride [Moles/Vol] 98 mmol/L Normal 97-105 [facility] Comment on above: Order Comment: Speci men Type: BLOOD SPECIMENOrdering Facility: [facility] Address: [address] [place] [address] Performed By: #### 2 4321-2, 2776-05, , HFP ####[facility] LABORATORYCLIA [id number] [place] [address] [place] CO2 [Moles/Vol] 29 mmol/L Normal 22-30 [facility] Comment on above: Order Comment: Speci men Type: BLOOD SPECIMENOrdering Facility: [facility] Address: [address] [place], [place] [id number] Performed By: #### 2 4321-2, 2776-05, , HFP ####[facility] LABORATORYCLIA [id number] [place] [address] [place] Creatinine [Mass/Vol] 0.67 mg/dL Low 0.73-1.22 [facility] Comment on above: Order Comment: Speci men Type: BLOOD SPECIMENOrdering Facility: [facility] Address: [address] [place], [place] [address] Performed By: #### 2 4321-2, 2776-, , HFP ####[facility]PITALIA [id number] [place] [address] [facility] ESTIMATED GLOMERULAR FILTRATION RATE 101 mL/min/1.73m??? Normal >=60 [facility] Comment on above: Order Comment: Shira feldman Type: BLOOD SPECIMENOrdering Facility: [facility] Address: [address] [place] [address] Result Comment: Luzmaria mated Glomerular Filtration Rate [...] Performed By: #### 2 4321-2, 2777-, , [facility] ####[facility] [id number] [place] [id number] [facility] Glucose [Mass/Vol] 117 mg/dL High 74-99 [facility] Comment on above: Order Comment: Johncara feldman Type: BLOOD SPECIMENOrdering Facility: [facility] Address: [address] [place] [address] Result Comment: The [place] [employer] (ADA) [...] Performed By: #### 2 4321-2, 2777-, , [facility] ####[facility]ITALIA [id number] [place] [address] [place] Potassium [Moles/Vol] 4.1 mmol/L Normal 3.7-5.1 [facility] Comment on above: Order Comment: Speci men Type: BLOOD SPECIMENOrdering Facility: [facility] Address: [address] [place] [address] Performed By: #### 2 4321-2, 2777-1, , HFP ####[facility] LABORATORYCLIA [id number] [address] STATES [facility] Sodium [Moles/Vol] 136 mmol/L Normal 136-144 [facility] Comment on above: Order Comment: Speci men Type: BLOOD SPECIMENOrdering Facility: [facility] Address: [address] [place] [address] Performed By: #### 2 4321-2, 2776-, , HFP ####[facility] LABORATORYCLIA [id number] [address] STATES [facility] Urea nitrogen [Mass/Vol] 31 mg/dL High 9-24 [facility] Comment on above: Order Comment: Speci men Type: BLOOD SPECIMENOrdering Facility: [facility] Address: [address] [place] [address] Performed By: #### 2 4321-2, 2776-, , HFP ####[facility] LABORATORYCLIA [id number] [address] STATES OF [facility] CBC W Auto Differential pane l (Bld)on 08-07-2021 Basophils (Bld) [#/Vol] 0.03 10*3/uL Normal <0.11 [facility] Comment on above: Order Comment: Speci men Type: BLOOD SPECIMENOrdering Facility: [facility] Address: [address] [place] [address] Performed By: #### 5 7021-8 ####[facility]ORATORYCLIA [id number] [address] Basophils/100 WBC (Bld) 0.3 % Normal [facility] Comment on above: Order Comment: Speci men Type: BLOOD SPECIMENOrdering Facility: [facility] Address: [address] [place] [address] Performed By: #### 5 7021-8 ####[facility]ORATORYCLIA [id number] [address] Differential cell count method Nom (Bld) Auto Normal [facility] Comment on above: Order Comment: Speci men Type: BLOOD SPECIMENOrdering Facility: [facility] Address: [address] [place] [address] Performed By: #### 5 7021-8 ####[facility] LABORATORYCLIA [id number] [address] [place] Eosinophils (Bld) [#/Vol] 0.16 10*3/uL Normal <0.46 [facility] Comment on above: Order Comment: Speci men Type: BLOOD SPECIMENOrdering Facility: [facility] Address: [address] [place] [address] Performed By: #### 5 7021-8 ####[facility] LABORATORYCLIA [id number] [address] Eosinophils/100 WBC (Bld) 1.6 % Normal [facility] Comment on above: Order Comment: Speci men Type: BLOOD SPECIMENOrdering Facility: [facility] Address: [address] [place] [address] Performed By: #### 5 7021-8 ####[facility] LABORATORYCLIA [id number] [address] [place] Erythrocyte distribution width (RBC) [Ratio] 18.1 % High 11.5-15.0 [facility] Comment on above: Order Comment: Speci men Type: BLOOD SPECIMENOrdering Facility: [facility] Address: [address] [place] [address] Performed By: #### 5 7021-8 ####[facility]ORATORYCLIA [id number] [address] [place] Hematocrit (Bld) [Volume fraction] 30.6 % Low 39.0-51.0 [facility] Comment on above: Order Comment: Speci men Type: BLOOD SPECIMENOrdering Facility: [facility] Address: [address] [place] [address] Performed By: #### 5 7021-8 ####[facility]ORATORYCLIA [id number] [address] [place] Hemoglobin (Bld) [Mass/Vol] 9.4 g/dL Low 13.0-17.0 [facility] Comment on above: Order Comment: Speci men Type: BLOOD SPECIMENOrdering Facility: [facility] Address: [address] [place] [address] Performed By: #### 5 7021-8 ####[facility] LABORATORYCLIA [id number] [address] [place] IMMATURE GRAN % 0.4 % Normal [facility] Comment on above: Order Comment: Speci men Type: BLOOD SPECIMENOrdering Facility: [facility] Address: [address] [place] [address] Performed By: #### 5 7021-8 ####[facility] LABORATORYCLIA [id number] [address] IMMATURE GRAN ABS 0.04 k/uL Normal <0.10 [facility] Comment on above: Order Comment: Speci men Type: BLOOD SPECIMENOrdering Facility: [facility] Address: [address] [place] [address] Performed By: #### 5 7021-8 ####[facility]ORATORYCLIA [id number] [address] [place] Lymphocytes (Bld) [#/Vol] 2.05 10*3/uL Normal 1.00-4.00 [facility] Comment on above: Order Comment: Speci men Type: BLOOD SPECIMENOrdering Facility: [facility] Address: [address] [place] [address] Performed By: #### 5 7021-8 ####[facility]ORATORYCLIA [id number] [address] Lymphocytes/100 WBC (Bld) 20.2 % Normal [facility] Comment on above: Order Comment: Speci men Type: BLOOD SPECIMENOrdering Facility: [facility] Address: [address] [place] [address] Performed By: #### 5 7021-8 ####[facility]ORATORYCLIA [id number] [address] MCH (RBC) [Entitic mass] 28.8 pg Normal 26.0-34.0 [facility] Comment on above: Order Comment: Speci men Type: BLOOD SPECIMENOrdering Facility: [facility] Address: [address] [place] [address] Performed By: #### 5 7021-8 ####[facility]ORATORYCLIA [id number] [address] MCHC (RBC) [Mass/Vol] 30.7 g/dL Normal 30.5-36.0 [facility] Comment on above: Order Comment: Speci men Type: BLOOD SPECIMENOrdering Facility: [facility] Address: [address] [place] [address] Performed By: #### 5 7021-8 ####[facility]ORATORYCLIA [id number] [address] MCV (RBC) [Entitic vol] 93.9 fL Normal 80.0-100.0 [facility] Comment on above: Order Comment: Speci men Type: BLOOD SPECIMENOrdering Facility: [facility] Address: [address] [place] [address] Performed By: #### 5 7021-8 ####[facility]ORATORYCLIA [id number] [address] Monocytes (Bld) [#/Vol] 0.64 10*3/uL Normal <0.87 [facility] Comment on above: Order Comment: Speci men Type: BLOOD SPECIMENOrdering Facility: [facility] Address: [address] [place] [address] Performed By: #### 5 7021-8 ####[facility]ORATORYCLIA [id number] [address] [place] Monocytes/100 WBC (Bld) 6.3 % Normal [facility] Comment on above: Order Comment: Speci men Type: BLOOD SPECIMENOrdering Facility: [facility] Address: [address] [place] [address] Performed By: #### 5 7021-8 ####[facility] LABORATORYCLIA [id number] [place] [address] [place] Neutrophils (Bld) [#/Vol] 7.22 10*3/uL Normal 1.45-7.50 [facility] Comment on above: Order Comment: Speci men Type: BLOOD SPECIMENOrdering Facility: [facility] Address: [address] [place] [address] Performed By: #### 5 7021-8 ####[facility] LABORATORYCLIA [id number] [address] [place] Neutrophils/100 WBC (Bld) 71.2 % Normal [facility] Comment on above: Order Comment: Speci men Type: BLOOD SPECIMENOrdering Facility: [facility] Address: [address] [place] [address] Performed By: #### 5 7021-8 ####[facility]ORATORYCLIA [id number] [place] [address] [place] Nucleated RBC (Bld) [#/Vol] 10*3/uL Normal <0.01 [facility] Comment on above: Order Comment: Speci men Type: BLOOD SPECIMENOrdering Facility: [facility] Address: [address] [place] [address] Performed By: #### 5 7021-8 ####[facility]ORATORYCLIA [id number] [place] [address] [place] Nucleated RBC/100 WBC (Bld) [Ratio] 0.0 /100 WBC Normal [facility] Comment on above: Order Comment: Speci men Type: BLOOD SPECIMENOrdering Facility: [facility] Address: [address] [place] [address] Performed By: #### 5 7021-8 ####[facility]ORATORYCLIA [id number] [address] [place] Platelet mean volume (Bld) [Entitic vol] 9.9 fL Normal 9.0-12.7 [facility] Comment on above: Order Comment: Speci men Type: BLOOD SPECIMENOrdering Facility: [facility] Address: [address] [place], [place] [address] Performed By: #### 5 7021-8 ####[facility]ORATORYCLIA [id number] [address] [place] Platelets (Bld) [#/Vol] 227 10*3/uL Normal 150-400 [facility] Comment on above: Order Comment: Speci men Type: BLOOD SPECIMENOrdering Facility: [facility] Address: [address] [place] [address] Performed By: #### 5 7021-8 ####[facility]ORATORYCLIA [id number] [place] [address] [place] RBC (Bld) [#/Vol] 3.26 10*6/uL Low 4.20-6.00 [facility] Comment on above: Order Comment: Speci men Type: BLOOD SPECIMENOrdering Facility: [facility] Address: [address] [place], [place] [address] Performed By: #### 5 7021-8 ####[facility]ORATORYCLIA [id number] [address] [place] WBC (Bld) [#/Vol] 10.14 10*3/uL Normal 3.70-11.00 [facility] Comment on above: Order Comment: Speci men Type: BLOOD SPECIMENOrdering Facility: [facility] Address: [address] [place], [place] [address] Performed By: #### 5 7021-8 ####[facility]ORATORYCLIA [id number] [address] BRAIN WO IVCONon 08-08-19 CT BRAIN WO IVCON Normal [facility] HEPATIC FUNCTION PNLon 08-07 Albumin [Mass/Vol] 3.6 g/dL Low 3.9-4.9 [facility] Comment on above: Order Comment: Speci men Type: BLOOD SPECIMENOrdering Facility: [facility] Address: [address] [place] [address] Performed By: #### 2 4321-2, 2777-1, , HFP ####[facility]ORATORYCLIA [id number] [address] ALP [Catalytic activity/Vol] 124 U/L High 38-113 [facility] Comment on above: Order Comment: Speci men Type: BLOOD SPECIMENOrdering Facility: [facility] Address: [address] [place] [address] Performed By: #### 2 4321-2, 2777-1, , HFP ####[facility]ORATORYCLIA [id number] [address] ALT With P-5'-P [Catalytic activity/Vol] 29 U/L Normal 10-54 [facility] Comment on above: Order Comment: Speci men Type: BLOOD SPECIMENOrdering Facility: [facility] Address: [address] [place] [address] Performed By: #### 2 4321-2, 2777-1, , HFP ####[facility]ORATORYCLIA [id number] [address] AST With P-5'-P [Catalytic activity/Vol] 18 U/L Normal 14-40 [facility] Comment on above: Order Comment: Speci men Type: BLOOD SPECIMENOrdering Facility: [facility] Address: [address] [place] [address] Performed By: #### 2 4321-2, 277-, , HFP ####[facility] LABORATORYCLIA [id number] [place] [id number] [place] Bilirubin [Mass/Vol] 0.3 mg/dL Normal 0.2-1.3 [facility] Comment on above: Order Comment: Speci men Type: BLOOD SPECIMENOrdering Facility: [facility] Address: [address] [place], [place] [address] Performed By: #### 2 4321-2, 2776-05, , HFP ####[facility]ORATORYCLIA [id number] [place] [address] [place] Bilirubin.conjugated [Mass/Vol] mg/dL Normal <0.2 [facility] Comment on above: Order Comment: Speci men Type: BLOOD SPECIMENOrdering Facility: [facility] Address: [address] [place] [address] Performed By: #### 2 4321-2, 2776-05, , HFP ####[facility]ORATORYCLIA [id number] [place] [address] [place] Protein [Mass/Vol] 6.4 g/dL Normal 6.3-8.0 [facility] Comment on above: Order Comment: Speci men Type: BLOOD SPECIMENOrdering Facility: [facility] Address: [address] [place] [address] Performed By: #### 2 4321-2, 2776-05, , HFP ####[facility]ORATORYCLIA [id number] [place] [address] [place] Magnesium SerPl-mCncon 08-07 Magnesium [Mass/Vol] 2.3 mg/dL Normal 1.7-2.3 [facility] Comment on above: Order Comment: Speci men Type: BLOOD SPECIMENOrdering Facility: [facility] Address: [address] [place] [address] Performed By: #### 2 4321-2, 2776-05, , HFP ####[facility]ORATORYCLIA [id number] [place] [address] [place] NURSING PROGon 08-07-2021 NURSING PROG Normal [facility] Phosphate SerPl-mCncon 08-07 Phosphate [Mass/Vol] 3.5 mg/dL Normal 2.7-4.8 [facility] Comment on above: Order Comment: Speci men Type: BLOOD SPECIMENOrdering Facility: [facility] Address: [address] [place] [address] Performed By: #### 2 4321-2, 2776-05, , [facility] ####[facility]ORATORYCLIA [id number] [address] [place] ANES POSTPROC EVALon 022 ANES POSTPROC EVAL Normal [facility] Basic metabolic 2000 panelon 08-06-2021 Anion gap [Moles/Vol] 11 mmol/L Normal 9-18 [facility] Comment on above: Order Comment: Speci men Type: BLOOD SPECIMENOrdering Facility: [facility] Address: [address] [place] [address] Performed By: #### 2 4321-2, 2776-05, ####[facility]ITALCLIA [id number] [place] [address] [place] Calcium [Mass/Vol] 8.2 mg/dL Low 8.5-10.2 [facility] Comment on above: Order Comment: Speci men Type: BLOOD SPECIMENOrdering Facility: [facility] Address: [address] [place] [address] Performed By: #### 2 4321-2, 2776-05, ####[facility]ORATORYCLIA [id number] [place] [address] [place] Chloride [Moles/Vol] 100 mmol/L Normal 97-105 [facility] Comment on above: Order Comment: Speci men Type: BLOOD SPECIMENOrdering Facility: [facility] Address: [address] [place], [place] [address] Performed By: #### 2 4321-2, 2776-05, ####[facility]PITALCLIA [id number] [place] [address] [place] [facility] CO2 [Moles/Vol] 23 mmol/L Normal 22-30 [facility] Comment on above: Order Comment: Speci men Type: BLOOD SPECIMENOrdering Facility: [facility] Address: [address] [place] [address] Performed By: #### 2 4321-2, 2776-05, ####[facility]PITALCLIA [id number] [place] [id number] [place] [facility] Creatinine [Mass/Vol] 0.55 mg/dL Low 0.73-1.22 [facility] Comment on above: Order Comment: Speci men Type: BLOOD SPECIMENOrdering Facility: [facility] Address: [address] [place] [address] Performed By: #### 2 4321-2, 2776-05, ####[facility]ITALCLIA [id number] [address] ESTIMATED GLOMERULAR FILTRATION RATE 107 mL/min/1.73m??? Normal >=60 [facility] Comment on above: Order Comment: Speci men Type: BLOOD SPECIMENOrdering Facility: [facility] Address: [address] [place] [address] Result Comment: Luzmaria mated Glomerular Filtration Rate [...] GFR. Performed By: #### 2 4321-2, 27711-04, ####[facility]ORATORYCLIA [id number] [place] [id number] [place] Glucose [Mass/Vol] 275 mg/dL High 74-99 [facility] Comment on above: Order Comment: Shira feldman Type: BLOOD SPECIMENOrdering Facility: [facility] Address: [address] [place], [place] [phone] Result Comment: The [place] [employer] (ADA) [...] 4321-2, 2776-05, ####[facility]ORATORYCLIA [id number] [place] [address] [place] Potassium [Moles/Vol] 3.6 mmol/L Low 3.7-5.1 [facility] Comment on above: Order Comment: Shira feldman Type: BLOOD SPECIMENOrdering Facility: [facility] Address: [address] [place], [place] [phone] Performed By: #### 2 4321-2, 27711-04, ####[facility]ORATORYCLIA [id number] [place] [address] [place] Sodium [Moles/Vol] 134 mmol/L Low 136-144 [facility] Comment on above: Order Comment: Shira feldman Type: BLOOD SPECIMENOrdering Facility: [facility] Address: [address] [place], [place] [phone] Performed By: #### 2 4321-2, 2776-05, ####[facility]ORATORYCLIA [id number] [place] [address] [place] Urea nitrogen [Mass/Vol] 29 mg/dL High 9-24 [facility] Comment on above: Order Comment: Speci men Type: BLOOD SPECIMENOrdering Facility: [facility] Address: [address] [place] [address] Performed By: #### 2 4321-2, 2777-1, 85987-0 ####[facility]ORATORYCLIA [id number] [place] [address] [place] CBC W Auto Differential pane l (Bld)on 08-06-2021 Basophils (Bld) [#/Vol] 0.03 10*3/uL Normal <0.11 [facility] Comment on above: Order Comment: Speci men Type: BLOOD SPECIMENOrdering Facility: [facility] Address: [address] [place] [address] Performed By: #### 5 7021-8 ####[facility] LABORATORYCLIA [id number] [place] [address] [place] Basophils/100 WBC (Bld) 0.3 % Normal [facility] Comment on above: Order Comment: Speci men Type: BLOOD SPECIMENOrdering Facility: [facility] Address: [address] [place] [address] Performed By: #### 5 7021-8 ####[facility] LABORATORYCLIA [id number] [address] STATES [facility] Differential cell count method Nom (Bld) Auto Normal [facility] Comment on above: Order Comment: Speci men Type: BLOOD SPECIMENOrdering Facility: [facility] Address: [address] [place] [address] Performed By: #### 5 7021-8 ####[facility] LABORATORYCLIA [id number] [place] [address] [place] Eosinophils (Bld) [#/Vol] 0.18 10*3/uL Normal <0.46 [facility] Comment on above: Order Comment: Speci men Type: BLOOD SPECIMENOrdering Facility: [facility] Address: [address] [place] [address] Performed By: #### 5 7021-8 ####[facility]ORATORYCLIA [id number] [address] STATES [facility] Eosinophils/100 WBC (Bld) 1.6 % Normal [facility] Comment on above: Order Comment: Speci men Type: BLOOD SPECIMENOrdering Facility: [facility] Address: [address] [place] [address] Performed By: #### 5 7021-8 ####[facility] LABORATORYCLIA [id number] [address] Erythrocyte distribution width (RBC) [Ratio] 17.9 % High 11.5-15.0 [facility] Comment on above: Order Comment: Speci men Type: BLOOD SPECIMENOrdering Facility: [facility] Address: [address] [place] [address] Performed By: #### 5 7021-8 ####[facility] LABORATORYCLIA [id number] [address] Hematocrit (Bld) [Volume fraction] 27.6 % Low 39.0-51.0 [facility] Comment on above: Order Comment: Speci men Type: BLOOD SPECIMENOrdering Facility: [facility] Address: [address] [place] [address] Performed By: #### 5 7021-8 ####[facility] LABORATORYCLIA [id number] [address] [place] Hemoglobin (Bld) [Mass/Vol] 8.5 g/dL Low 13.0-17.0 [facility] Comment on above: Order Comment: Speci men Type: BLOOD SPECIMENOrdering Facility: [facility] Address: [address] [place] [address] Performed By: #### 5 7021-8 ####[facility]ORATORYCLIA [id number] [address] [place] IMMATURE GRAN % 0.6 % Normal [facility] Comment on above: Order Comment: Speci men Type: BLOOD SPECIMENOrdering Facility: [facility] Address: [address] [place] [address] Performed By: #### 5 7021-8 ####[facility]ORATORYCLIA [id number] [address] IMMATURE GRAN ABS 0.07 k/uL Normal <0.10 [facility] Comment on above: Order Comment: Speci men Type: BLOOD SPECIMENOrdering Facility: [facility] Address: [address] [place] [address] Performed By: #### 5 7021-8 ####[facility]ORATORYCLIA [id number] [address] Lymphocytes (Bld) [#/Vol] 1.81 10*3/uL Normal 1.00-4.00 [facility] Comment on above: Order Comment: Speci men Type: BLOOD SPECIMENOrdering Facility: [facility] Address: [address] [place] [address] Performed By: #### 5 7021-8 ####[facility]ORATORYCLIA [id number] [address] Lymphocytes/100 WBC (Bld) 15.7 % Normal [facility] Comment on above: Order Comment: Speci men Type: BLOOD SPECIMENOrdering Facility: [facility] Address: [address] [place] [address] Performed By: #### 5 7021-8 ####[facility]ORATORYCLIA [id number] [address] STATES [facility] MCH (RBC) [Entitic mass] 28.6 pg Normal 26.0-34.0 [facility] Comment on above: Order Comment: Speci men Type: BLOOD SPECIMENOrdering Facility: [facility] Address: [address] [place] [address] Performed By: #### 5 7021-8 ####[facility] LABORATORYCLIA [id number] [address] MCHC (RBC) [Mass/Vol] 30.8 g/dL Normal 30.5-36.0 [facility] Comment on above: Order Comment: Speci men Type: BLOOD SPECIMENOrdering Facility: [facility] Address: [address] [place] [address] Performed By: #### 5 7021-8 ####[facility] LABORATORYCLIA [id number] [address] [place] MCV (RBC) [Entitic vol] 92.9 fL Normal 80.0-100.0 [facility] Comment on above: Order Comment: Speci men Type: BLOOD SPECIMENOrdering Facility: [facility] Address: [address] [place] [address] Performed By: #### 5 7021-8 ####[facility] LABORATORYCLIA [id number] [address] [place] Monocytes (Bld) [#/Vol] 0.63 10*3/uL Normal <0.87 [facility] Comment on above: Order Comment: Speci men Type: BLOOD SPECIMENOrdering Facility: [facility] Address: [address] [place] [address] Performed By: #### 5 7021-8 ####[facility] LABORATORYCLIA [id number] [address] Monocytes/100 WBC (Bld) 5.5 % Normal [facility] Comment on above: Order Comment: Speci men Type: BLOOD SPECIMENOrdering Facility: [facility] Address: [address] [place] [address] Performed By: #### 5 7021-8 ####[facility] LABORATORYCLIA [id number] [address] [place] Neutrophils (Bld) [#/Vol] 8.78 10*3/uL High 1.45-7.50 [facility] Comment on above: Order Comment: Speci men Type: BLOOD SPECIMENOrdering Facility: GOOD [facility] Address: [address] [place] [address] Performed By: #### 5 7021-8 ####[facility] LABORATORYCLIA [id number] [address] [place] Neutrophils/100 WBC (Bld) 76.3 % Normal [facility] Comment on above: Order Comment: Speci men Type: BLOOD SPECIMENOrdering Facility: [facility] Address: [address] [place] [address] Performed By: #### 5 7021-8 ####[facility] LABORATORYCLIA [id number] [address] [place] Nucleated RBC (Bld) [#/Vol] 10*3/uL Normal <0.01 [facility] Comment on above: Order Comment: Speci men Type: BLOOD SPECIMENOrdering Facility: [facility] Address: [address] [place] [address] Performed By: #### 5 7021-8 ####[facility] LABORATORYCLIA [id number] [address] Nucleated RBC/100 WBC (Bld) [Ratio] 0.0 /100 WBC Normal [facility] Comment on above: Order Comment: Speci men Type: BLOOD SPECIMENOrdering Facility: [facility] Address: [address] [place] [address] Performed By: #### 5 7021-8 ####[facility]ORATORYCLIA [id number] [address] [place] Platelet mean volume (Bld) [Entitic vol] 9.9 fL Normal 9.0-12.7 [facility] Comment on above: Order Comment: Speci men Type: BLOOD SPECIMENOrdering Facility: [facility] Address: [address] [place] [address] Performed By: #### 5 7021-8 ####[facility]ORATORYCLIA [id number] [address] [place] Platelets (Bld) [#/Vol] 230 10*3/uL Normal 150-400 [facility] Comment on above: Order Comment: Speci men Type: BLOOD SPECIMENOrdering Facility: [facility] Address: [address] [place] [address] Performed By: #### 5 7021-8 ####[facility] LABORATORYCLIA [id number] [address] RBC (Bld) [#/Vol] 2.97 10*6/uL Low 4.20-6.00 [facility] Comment on above: Order Comment: Speci men Type: BLOOD SPECIMENOrdering Facility: [facility] Address: [address] [place] [address] Performed By: #### 5 7021-8 ####[facility]ORATORYCLIA [id number] [address] WBC (Bld) [#/Vol] 11.50 10*3/uL High 3.70-11.00 [facility] Comment on above: Order Comment: Speci men Type: BLOOD SPECIMENOrdering Facility: [facility] Address: [address] [place] [address] Performed By: #### 5 7021-8 ####[facility]ORATORYCLIA [id number] [address] CONSULT PROGon 08-06-2021 CONSULT PROG Normal [facility] Magnesium SerPl-mCncon 08-06 Magnesium [Mass/Vol] 1.9 mg/dL Normal 1.7-2.3 [facility] Comment on above: Order Comment: Speci men Type: BLOOD SPECIMENOrdering Facility: [facility] Address: [address] [place] [address] Performed By: #### 2 4321-2, 2777-1, 18771-5 ####[facility]ORATORYCLIA [id number] [address] NURSING PROGon 08-06-2021 NURSING PROG Normal [facility] OPERATIVE NOon 08-06-2021 OPERATIVE NO Normal [facility] Phosphate SerPl-mCncon 08-06 Phosphate [Mass/Vol] 4.2 mg/dL Normal 2.7-4.8 [facility] Comment on above: Order Comment: Speci men Type: BLOOD SPECIMENOrdering Facility: [facility] Address: [address] [place], [place] [address] Performed By: #### 2 4321-2, 2777-1, 76770-2 ####[facility] LABORATORYCLIA [id number] [place] [address] [place] ALLIED HEALTHon 08-05-2021 ALLIED HEALTH Normal [facility] ALLIED HEALTH Normal [facility] ANES PRE-OPon 08-05-2021 ANES PRE-OP Normal [facility] BRIEF OP NOTon 08-05-2021 BRIEF OP NOT Normal [facility] Bacteria Spec Resp Culton Bacteria identified Respiratory culture Nom (Unsp spec) CULTURE, RESPIRATORY: Few Normal respiratory chris present ORGANISM ID: 1 Few Proteus species Insignificant colony count. No further workup. GRAM STAIN: No organisms seen Few Polymorphonuclear leukocytes Few Epithelial cells Abnormal [facility] Comment on above: Performed By: #### 3 2355-0 ####[facility] LABORATORYCLIA [id number] [place] [address] [place] Bacteria Ur Culton Bacteria identified Cx Nom (U) CULTURE, URINE: No growth (<1,000 CFU/ml) Normal [facility] Comment on above: Performed By: #### 6 30-4 ####[facility]ORATORYCLIA [id number] [place] [address] [place] Basic metabolic 2000 panelon 08-05-2021 Anion gap [Moles/Vol] 7 mmol/L Low 9-18 [facility] Comment on above: Order Comment: Speci men Type: BLOOD SPECIMENOrdering Facility: [facility] Address: [address] [place] [address] Performed By: #### 2 4321-2 ####[facility]ORATORYCLIA [id number] [place] [address] [place] Calcium [Mass/Vol] 9.5 mg/dL Normal 8.5-10.2 [facility] Comment on above: Order Comment: Speci men Type: BLOOD SPECIMENOrdering Facility: [facility] Address: [address] [address] Performed By: #### 2 4321-2 ####[facility] LABORATORYCLIA [id number] [address] [place] Chloride [Moles/Vol] 97 mmol/L Normal 97-105 [facility] Comment on above: Order Comment: Speci men Type: BLOOD SPECIMENOrdering Facility: [facility] Address: [address] [place] [address] Performed By: #### 2 4321-2 ####[facility] LABORATORYCLIA [id number] [address] [place] CO2 [Moles/Vol] 30 mmol/L Normal 22-30 [facility] Comment on above: Order Comment: Speci men Type: BLOOD SPECIMENOrdering Facility: [facility] Address: [address] [place] [address] Performed By: #### 2 4321-2 ####[facility] LABORATORYCLIA [id number] [address] [place] Creatinine [Mass/Vol] 0.61 mg/dL Low 0.73-1.22 [facility] Comment on above: Order Comment: Speci men Type: BLOOD SPECIMENOrdering Facility: [facility] Address: [address] [place] [address] Performed By: #### 2 4321-2 ####[facility]ORATORYCLIA [id number] [address] ESTIMATED GLOMERULAR FILTRATION RATE 104 mL/min/1.73m??? Normal >=60 [facility] Comment on above: Order Comment: Speci men Type: BLOOD SPECIMENOrdering Facility: [facility] Address: [address] [place] [address] Result Comment: Luzmaria mated Glomerular Filtration Rate [...] 2 4321-2 ####[facility] LABORATORYCLIA [id number] [place] [address] [place] Glucose [Mass/Vol] 124 mg/dL High 74-99 [facility] Comment on above: Order Comment: Shira feldman Type: BLOOD SPECIMENOrdering Facility: [facility] Address: [address] [place], [place] [address] Result Comment: The [place] (ADA) [...] 2 4321-2 ####[facility]ORATORYCLIA [id number] [place] [address] [place] Potassium [Moles/Vol] 4.9 mmol/L Normal 3.7-5.1 [facility] Comment on above: Order Comment: Shira feldman Type: BLOOD SPECIMENOrdering Facility: [facility] Address: [address] [place] [address] Performed By: #### 2 4321-2 ####[facility] LABORATORYCLIA [id number] [place] [address] [place] Sodium [Moles/Vol] 134 mmol/L Low 136-144 [facility] Comment on above: Order Comment: Shira feldman Type: BLOOD SPECIMENOrdering Facility: [facility] Address: [address] [place] [address] Performed By: #### 2 4321-2 ####[facility]ORATORYCLIA [id number] [address] STATES [facility] Urea nitrogen [Mass/Vol] 40 mg/dL High 9-24 [facility] Comment on above: Order Comment: Speci men Type: BLOOD SPECIMENOrdering Facility: [facility] Address: [address] [place] [address] Performed By: #### 2 4321-2 ####[facility]ORATORYCLIA [id number] [place] [address] [place] CBC W Auto Differential pane l (Bld)on 08-05-2021 Basophils (Bld) [#/Vol] 0.04 10*3/uL Normal <0.11 [facility] Comment on above: Order Comment: Speci men Type: BLOOD SPECIMENOrdering Facility: [facility] Address: [address] [place] [address] Performed By: #### 5 7021-8 ####[facility]ORATORYCLIA [id number] [address] [place] Basophils/100 WBC (Bld) 0.3 % Normal [facility] Comment on above: Order Comment: Speci men Type: BLOOD SPECIMENOrdering Facility: [facility] Address: [address] [place] [address] Performed By: #### 5 7021-8 ####[facility]ORATORYCLIA [id number] [address] STATES [facility] Differential cell count method Nom (Bld) Auto Normal [facility] Comment on above: Order Comment: Speci men Type: BLOOD SPECIMENOrdering Facility: [facility] Address: [address] [place] [address] Performed By: #### 5 7021-8 ####[facility]ORATORYCLIA [id number] [place] [address] [place] Eosinophils (Bld) [#/Vol] 0.42 10*3/uL Normal <0.46 [facility] Comment on above: Order Comment: Speci men Type: BLOOD SPECIMENOrdering Facility: [facility] Address: [address] [place] [address] Performed By: #### 5 7021-8 ####[facility]ORATORYCLIA [id number] [address] Eosinophils/100 WBC (Bld) 3.6 % Normal [facility] Comment on above: Order Comment: Speci men Type: BLOOD SPECIMENOrdering Facility: [facility] Address: [address] [place] [address] Performed By: #### 5 7021-8 ####[facility]ORATORYCLIA [id number] [address] [place] Erythrocyte distribution width (RBC) [Ratio] 17.9 % High 11.5-15.0 [facility] Comment on above: Order Comment: Speci men Type: BLOOD SPECIMENOrdering Facility: [facility] Address: [address] [place] [address] Performed By: #### 5 7021-8 ####[facility]ORATORYCLIA [id number] [address] [place] Hematocrit (Bld) [Volume fraction] 30.8 % Low 39.0-51.0 [facility] Comment on above: Order Comment: Speci men Type: BLOOD SPECIMENOrdering Facility: [facility] Address: [address] [place] [address] Performed By: #### 5 7021-8 ####[facility]ORATORYCLIA [id number] [address] [place] Hemoglobin (Bld) [Mass/Vol] 9.6 g/dL Low 13.0-17.0 [facility] Comment on above: Order Comment: Speci men Type: BLOOD SPECIMENOrdering Facility: [facility] Address: [address] [place] [address] Performed By: #### 5 7021-8 ####[facility]ORATORYCLIA [id number] [address] IMMATURE GRAN % 0.5 % Normal [facility] Comment on above: Order Comment: Speci men Type: BLOOD SPECIMENOrdering Facility: [facility] Address: [address] [place] [address] Performed By: #### 5 7021-8 ####[facility]ATORYCLIA [id number] [address] IMMATURE GRAN ABS 0.06 k/uL Normal <0.10 [facility] Comment on above: Order Comment: Speci men Type: BLOOD SPECIMENOrdering Facility: [facility] Address: [address] [place] [address] Performed By: #### 5 7021-8 ####[facility]ORATORYCLIA [id number] [address] [place] Lymphocytes (Bld) [#/Vol] 2.17 10*3/uL Normal 1.00-4.00 [facility] Comment on above: Order Comment: Speci men Type: BLOOD SPECIMENOrdering Facility: [facility] Address: [address] [place] [address] Performed By: #### 5 7021-8 ####[facility]ORATORYCLIA [id number] [address] Lymphocytes/100 WBC (Bld) 18.7 % Normal [facility] Comment on above: Order Comment: Speci men Type: BLOOD SPECIMENOrdering Facility: [facility] Address: [address] [place] [address] Performed By: #### 5 7021-8 ####[facility]ORATORYCLIA [id number] [address] [place] MCH (RBC) [Entitic mass] 28.9 pg Normal 26.0-34.0 [facility] Comment on above: Order Comment: Speci men Type: BLOOD SPECIMENOrdering Facility: [facility] Address: [address] [place] [address] Performed By: #### 5 7021-8 ####[facility]ORATORYCLIA [id number] [address] STATES [facility] MCHC (RBC) [Mass/Vol] 31.2 g/dL Normal 30.5-36.0 [facility] Comment on above: Order Comment: Speci men Type: BLOOD SPECIMENOrdering Facility: [facility] Address: [address] [place] [address] Performed By: #### 5 7021-8 ####[facility]ORATORYCLIA [id number] [address] MCV (RBC) [Entitic vol] 92.8 fL Normal 80.0-100.0 [facility] Comment on above: Order Comment: Speci men Type: BLOOD SPECIMENOrdering Facility: [facility] Address: [address] [place] [address] Performed By: #### 5 7021-8 ####[facility]ORATORYCLIA [id number] [address] STATES OF [facility] Monocytes (Bld) [#/Vol] 0.71 10*3/uL Normal <0.87 [facility] Comment on above: Order Comment: Speci men Type: BLOOD SPECIMENOrdering Facility: [facility] Address: [address] [place] [address] Performed By: #### 5 7021-8 ####[facility]ATORYCLIA [id number] [address] Monocytes/100 WBC (Bld) 6.1 % Normal [facility] Comment on above: Order Comment: Speci men Type: BLOOD SPECIMENOrdering Facility: [facility] Address: [address] [place] [address] Performed By: #### 5 7021-8 ####[facility]ORATORYCLIA [id number] [address] [place] Neutrophils (Bld) [#/Vol] 8.19 10*3/uL High 1.45-7.50 [facility] Comment on above: Order Comment: Speci men Type: BLOOD SPECIMENOrdering Facility: [facility] Address: [address] [address] Performed By: #### 5 7021-8 ####[facility]ATORYCLIA [id number] [address] Neutrophils/100 WBC (Bld) 70.8 % Normal [facility] Comment on above: Order Comment: Speci men Type: BLOOD SPECIMENOrdering Facility: [facility] Address: [address] [place] [address] Performed By: #### 5 7021-8 ####[facility]ATORYCLIA [id number] [address] Nucleated RBC (Bld) [#/Vol] 10*3/uL Normal <0.01 [facility] Comment on above: Order Comment: Speci men Type: BLOOD SPECIMENOrdering Facility: [facility] Address: [address] [place] [address] Performed By: #### 5 7021-8 ####[facility]ATORYCLIA [id number] [address] Nucleated RBC/100 WBC (Bld) [Ratio] 0.0 /100 WBC Normal [facility] Comment on above: Order Comment: Speci men Type: BLOOD SPECIMENOrdering Facility: [facility] Address: [address] [place] [address] Performed By: #### 5 7021-8 ####[facility]ORATORYCLIA [id number] [address] Platelet mean volume (Bld) [Entitic vol] 9.6 fL Normal 9.0-12.7 [facility] Comment on above: Order Comment: Speci men Type: BLOOD SPECIMENOrdering Facility: [facility] Address: [address] [place] [address] Performed By: #### 5 7021-8 ####[facility]ORATORYCLIA [id number] [address] Platelets (Bld) [#/Vol] 339 10*3/uL Normal 150-400 [facility] Comment on above: Order Comment: Speci men Type: BLOOD SPECIMENOrdering Facility: [facility] Address: [address] [place] [address] Performed By: #### 5 7021-8 ####[facility]ORATORYCLIA [id number] [place] [address] [place] RBC (Bld) [#/Vol] 3.32 10*6/uL Low 4.20-6.00 [facility] Comment on above: Order Comment: Speci men Type: BLOOD SPECIMENOrdering Facility: [facility] Address: [address] [place] [address] Performed By: #### 5 7021-8 ####[facility]ATORYCLIA [id number] [address] WBC (Bld) [#/Vol] 11.59 10*3/uL High 3.70-11.00 [facility] Comment on above: Order Comment: Speci men Type: BLOOD SPECIMENOrdering Facility: [facility] Address: [address] [place] [address] Performed By: #### 5 7021-8 ####[facility]ORATORYCLIA [id number] [address] [place] BRAIN WO IVCONon 08-06-[address] BRAIN WO IVCON Normal [facility] Magnesium SerPl-mCncon 08-05 Magnesium [Mass/Vol] 2.2 mg/dL Normal 1.7-2.3 [facility] Comment on above: Order Comment: Speci men Type: BLOOD SPECIMENOrdering Facility: [facility] Address: [address] [place] [address] Performed By: #### 1 9123-9, 2777-1 ####[facility]ATORYCLIA [id number] [address] [place] NURSING PROGon 08-05-2021 NURSING PROG Normal [facility] NURSING PROG Normal [facility] NUTRITIONon 08-05-2021 NUTRITION Normal [facility] OPERATIVE NOon 08-05-2021 OPERATIVE NO Normal [facility] Phosphate SerPl-mCncon 08-05 Phosphate [Mass/Vol] 4.6 mg/dL Normal 2.7-4.8 [facility] Comment on above: Order Comment: Speci men Type: BLOOD SPECIMENOrdering Facility: [facility] Address: [address] [place] [address] Performed By: #### 1 9123-9, 2777-1 ####[facility]ORATORYCLIA [id number] [address] THERAPY NTon 08-05-2021 THERAPY NT Normal [facility] THERAPY NT Normal [facility] Urinalysis complete panel (U )on 08-05-2021 Bilirubin Ql (U) Negative Normal Negative [facility] Comment on above: Order Comment: Speci men Type: URINE SPECIMENOrdering Facility: [facility] Address: [address] [place] [address] Performed By: #### 2 4356-8 ####[facility]ORATORYCLIA [id number] [address] [place] Clarity (Unsp spec) Clear Normal Clear [facility] Comment on above: Order Comment: Speci men Type: URINE SPECIMENOrdering Facility: [facility] Address: [address] [place] [address] Performed By: #### 2 4356-8 ####[facility]ORATORYCLIA [id number] [address] [place] Color (U) Light Yellow Normal yellow [facility] Comment on above: Order Comment: Speci men Type: URINE SPECIMENOrdering Facility: [facility] Address: [address] [place] [address] Performed By: #### 2 4356-8 ####[facility]ORATORYCLIA [id number] [address] [place] Epithelial cells LM.HPF (Urine sed) [#/Area] Few Abnormal None Seen [facility] Comment on above: Order Comment: Speci men Type: URINE SPECIMENOrdering Facility: [facility] Address: [address] [place] [address] Performed By: #### 2 4356-8 ####[facility] LABORATORYCLIA [id number] [address] Glucose Test strip (U) [Mass/Vol] Negative Normal Negative [facility] Comment on above: Order Comment: Speci men Type: URINE SPECIMENOrdering Facility: [facility] Address: [address] [place] [address] Performed By: #### 2 4356-8 ####[facility]ORATORYCLIA [id number] [address] Hemoglobin Ql (U) Negative Normal Negative [facility] Comment on above: Order Comment: Speci men Type: URINE SPECIMENOrdering Facility: [facility] Address: [address] [place] [address] Performed By: #### 2 4356-8 ####[facility]ORATORYCLIA [id number] [address] Hyaline casts (Urine sed) [#/Area] 1-3 /LPF Abnormal 0 /LPF [facility] Comment on above: Order Comment: Speci men Type: URINE SPECIMENOrdering Facility: [facility] Address: [address] [place] [address] Performed By: #### 2 4356-8 ####[facility]ORATORYCLIA [id number] [address] Ketones Ql (U) Negative Normal Negative [facility] Comment on above: Order Comment: Speci men Type: URINE SPECIMENOrdering Facility: [facility] Address: [address] [place] [address] Performed By: #### 2 4356-8 ####[facility] LABORATORYCLIA [id number] [place] [address] Leukocyte esterase Test strip Ql (U) Negative Normal Negative [facility] Comment on above: Order Comment: Speci men Type: URINE SPECIMENOrdering Facility: [facility] Address: [address] [place] [address] Performed By: #### 2 4356-8 ####[facility]ORATORYCLIA [id number] [address] STATES [facility] Nitrite Ql (U) Negative Normal Negative [facility] Comment on above: Order Comment: Speci men Type: URINE SPECIMENOrdering Facility: [facility] Address: [address] [place] [address] Performed By: #### 2 4356-8 ####[facility]ORATORYCLIA [id number] [address] STATES [facility] pH (U) 6.0 [pH] Normal 5.0-8.0 [facility] Comment on above: Order Comment: Speci men Type: URINE SPECIMENOrdering Facility: [facility] Address: [address] [place] [address] Performed By: #### 2 4356-8 ####[facility]ORATORYCLIA [id number] [address] Protein (U) [Mass/Vol] Negative Normal Negative [facility] Comment on above: Order Comment: Speci men Type: URINE SPECIMENOrdering Facility: [facility] Address: [address] [place] [address] Performed By: #### 2 4356-8 ####[facility]ORATORYCLIA [id number] [address] RBC LM.HPF (Urine sed) [#/Area] 0-3 /HPF Normal 0-3 /HPF [facility] Comment on above: Order Comment: Speci men Type: URINE SPECIMENOrdering Facility: [facility] Address: [address] [place] [address] Performed By: #### 2 4356-8 ####[facility]ORATORYCLIA [id number] [address] [place] Specific gravity (U) [Rel density] 1.015 Normal 1.005-1.030 [facility] Comment on above: Order Comment: Speci men Type: URINE SPECIMENOrdering Facility: [facility] Address: [address] [place] [address] Performed By: #### 2 4356-8 ####[facility]ORATORYCLIA [id number] [address] [place] Urobilinogen Ql (U) Normal Normal Negative [facility] Comment on above: Order Comment: Speci men Type: URINE SPECIMENOrdering Facility: [facility] Address: [address] [place] [address] Performed By: #### 2 4356-8 ####[facility]ORATORYCLIA [id number] [address] [place] WBC LM.HPF (Urine sed) [#/Area] 0-5 /HPF Normal 0-5 /HPF [facility] Comment on above: Order Comment: Speci men Type: URINE SPECIMENOrdering Facility: [facility] Address: [address] [place] [address] Performed By: #### 2 4356-8 ####[facility]ORATORYCLIA [id number] [address] [place] XR ABDOMEN 1V SUPINEon 08-05 XR ABDOMEN 1V SUPINE Normal [facility] XR CHEST 1V FRONTALon 2021 XR CHEST 1V FRONTAL Normal [facility] XR CHEST 1V FRONTAL Normal [facility] XR NECK SOFT TISSUE 2V AP/LA Ton 08-05-2021 XR NECK SOFT TISSUE 2V AP/LAT Normal [facility] XR SKULL 2V AP/LATon 022 XR SKULL 2V AP/LAT Normal [facility] ALLIED HEALTHon 08-04-2021 ALLIED HEALTH Normal [facility] Bacteria Bld Culton 08-05-19 22 Bacteria identified Cx Nom (Bld) CULTURE, BLOOD: No growth 5 days Normal [facility] Comment on above: Performed By: #### 6 00-7 ####[facility]ORATORYCLIA [id number] [address] Bacteria identified Cx Nom (Bld) CULTURE, BLOOD: No growth 5 days Normal [facility] Comment on above: Performed By: #### 6 00-7 ####[facility] LABORATORYCLIA [id number] [address] OF [facility] CBC W Auto Differential pane l (Bld)on 08-04-2021 Basophils (Bld) [#/Vol] 0.05 10*3/uL Normal <0.11 [facility] Comment on above: Order Comment: Speci men Type: BLOOD SPECIMENOrdering Facility: [facility] Address: [address] [place] [address] Performed By: #### 5 7021-8 ####[facility] LABORATORYCLIA [id number] [address] Basophils/100 WBC (Bld) 0.4 % Normal [facility] Comment on above: Order Comment: Speci men Type: BLOOD SPECIMENOrdering Facility: [facility] Address: [address] [place] [address] Performed By: #### 5 7021-8 ####[facility] LABORATORYCLIA [id number] [address] Differential cell count method Nom (Bld) Auto Normal [facility] Comment on above: Order Comment: Speci men Type: BLOOD SPECIMENOrdering Facility: [facility] Address: [address] [place] [address] Performed By: #### 5 7021-8 ####[facility] LABORATORYCLIA [id number] [address] OF [facility] Eosinophils (Bld) [#/Vol] 0.21 10*3/uL Normal <0.46 [facility] Comment on above: Order Comment: Speci men Type: BLOOD SPECIMENOrdering Facility: [facility] Address: [address] [place] [address] Performed By: #### 5 7021-8 ####[facility] LABORATORYCLIA [id number] [address] STATES [facility] Eosinophils/100 WBC (Bld) 1.7 % Normal [facility] Comment on above: Order Comment: Speci men Type: BLOOD SPECIMENOrdering Facility: [facility] Address: [address] [place] [address] Performed By: #### 5 7021-8 ####[facility] LABORATORYCLIA [id number] [address] [place] Erythrocyte distribution width (RBC) [Ratio] 18.1 % High 11.5-15.0 [facility] Comment on above: Order Comment: Speci men Type: BLOOD SPECIMENOrdering Facility: [facility] Address: [address] [place] [address] Performed By: #### 5 7021-8 ####[facility] LABORATORYCLIA [id number] [address] Hematocrit (Bld) [Volume fraction] 32.0 % Low 39.0-51.0 [facility] Comment on above: Order Comment: Speci men Type: BLOOD SPECIMENOrdering Facility: [facility] Address: [address] [place] [address] Performed By: #### 5 7021-8 ####[facility] LABORATORYCLIA [id number] [address] [place] Hemoglobin (Bld) [Mass/Vol] 10.0 g/dL Low 13.0-17.0 [facility] Comment on above: Order Comment: Speci men Type: BLOOD SPECIMENOrdering Facility: [facility] Address: [address] [place] [address] Performed By: #### 5 7021-8 ####[facility] LABORATORYCLIA [id number] [address] [place] IMMATURE GRAN % 0.6 % Normal [facility] Comment on above: Order Comment: Speci men Type: BLOOD SPECIMENOrdering Facility: [facility] Address: [address] [place] [address] Performed By: #### 5 7021-8 ####[facility] LABORATORYCLIA [id number] [address] IMMATURE GRAN ABS 0.08 k/uL Normal <0.10 [facility] Comment on above: Order Comment: Speci men Type: BLOOD SPECIMENOrdering Facility: [facility] Address: [address] [place] [address] Performed By: #### 5 7021-8 ####[facility] LABORATORYCLIA [id number] [address] Lymphocytes (Bld) [#/Vol] 2.55 10*3/uL Normal 1.00-4.00 [facility] Comment on above: Order Comment: Speci men Type: BLOOD SPECIMENOrdering Facility: [facility] Address: [address] [place] [address] Performed By: #### 5 7021-8 ####[facility] LABORATORYCLIA [id number] [address] Lymphocytes/100 WBC (Bld) 20.5 % Normal [facility] Comment on above: Order Comment: Speci men Type: BLOOD SPECIMENOrdering Facility: [facility] Address: [address] [place] [address] Performed By: #### 5 7021-8 ####[facility] LABORATORYCLIA [id number] [address] MCH (RBC) [Entitic mass] 28.9 pg Normal 26.0-34.0 [facility] Comment on above: Order Comment: Speci men Type: BLOOD SPECIMENOrdering Facility: [facility] Address: [address] [place] [address] Performed By: #### 5 7021-8 ####[facility] LABORATORYCLIA [id number] [address] MCHC (RBC) [Mass/Vol] 31.3 g/dL Normal 30.5-36.0 [facility] Comment on above: Order Comment: Speci men Type: BLOOD SPECIMENOrdering Facility: [facility] Address: [address] [place] [address] Performed By: #### 5 7021-8 ####[facility] LABORATORYCLIA [id number] [address] [place] MCV (RBC) [Entitic vol] 92.5 fL Normal 80.0-100.0 [facility] Comment on above: Order Comment: Speci men Type: BLOOD SPECIMENOrdering Facility: [facility] Address: [address] [place] [address] Performed By: #### 5 7021-8 ####[facility] LABORATORYCLIA [id number] [address] [place] Monocytes (Bld) [#/Vol] 0.85 10*3/uL Normal <0.87 [facility] Comment on above: Order Comment: Speci men Type: BLOOD SPECIMENOrdering Facility: [facility] Address: [address] [place] [address] Performed By: #### 5 7021-8 ####[facility] LABORATORYCLIA [id number] [address] OF [facility] Monocytes/100 WBC (Bld) 6.8 % Normal [facility] Comment on above: Order Comment: Speci men Type: BLOOD SPECIMENOrdering Facility: [facility] Address: [address] [place] [address] Performed By: #### 5 7021-8 ####[facility] LABORATORYCLIA [id number] [address] [place] Neutrophils (Bld) [#/Vol] 8.68 10*3/uL High 1.45-7.50 [facility] Comment on above: Order Comment: Speci men Type: BLOOD SPECIMENOrdering Facility: [facility] Address: [address] [place] [address] Performed By: #### 5 7021-8 ####[facility]ORATORYCLIA [id number] [address] Neutrophils/100 WBC (Bld) 70.0 % Normal [facility] Comment on above: Order Comment: Speci men Type: BLOOD SPECIMENOrdering Facility: [facility] Address: [address] [place] [address] Performed By: #### 5 7021-8 ####[facility] LABORATORYCLIA [id number] [address] Nucleated RBC (Bld) [#/Vol] 10*3/uL Normal <0.01 [facility] Comment on above: Order Comment: Speci men Type: BLOOD SPECIMENOrdering Facility: [facility] Address: [address] [place] [address] Performed By: #### 5 7021-8 ####[facility] LABORATORYCLIA [id number] [address] STATES [facility] Nucleated RBC/100 WBC (Bld) [Ratio] 0.0 /100 WBC Normal [facility] Comment on above: Order Comment: Speci men Type: BLOOD SPECIMENOrdering Facility: [facility] Address: [address] [place] [address] Performed By: #### 5 7021-8 ####[facility] LABORATORYCLIA [id number] [address] [place] Platelet mean volume (Bld) [Entitic vol] 10.0 fL Normal 9.0-12.7 [facility] Comment on above: Order Comment: Speci men Type: BLOOD SPECIMENOrdering Facility: [facility] Address: [address] [place] [address] Performed By: #### 5 7021-8 ####[facility] LABORATORYCLIA [id number] [address] [place] Platelets (Bld) [#/Vol] 393 10*3/uL Normal 150-400 [facility] Comment on above: Order Comment: Speci men Type: BLOOD SPECIMENOrdering Facility: [facility] Address: [address] [place] [address] Performed By: #### 5 7021-8 ####[facility] LABORATORYCLIA [id number] [address] RBC (Bld) [#/Vol] 3.46 10*6/uL Low 4.20-6.00 [facility] Comment on above: Order Comment: Speci men Type: BLOOD SPECIMENOrdering Facility: [facility] Address: [address] [place] [address] Performed By: #### 5 7021-8 ####[facility] LABORATORYCLIA [id number] [address] WBC (Bld) [#/Vol] 12.42 10*3/uL High 3.70-11.00 [facility] Comment on above: Order Comment: Speci men Type: BLOOD SPECIMENOrdering Facility: [facility] Address: [address] [place] [address] Performed By: #### 5 7021-8 ####[facility] LABORATORYCLIA [id number] [address] BRAIN WO IVCONon 08-05-[address] BRAIN WO IVCON Normal [facility] Lactate (Bld) [Moles/Vol]on 08-04-2021 Lactate [Moles/Vol] 1.4 mmol/L Normal 0.5-2.2 [facility] Comment on above: Order Comment: Speci men Type: BLOOD SPECIMENOrdering Facility: [facility] Address: [address] [place] [address] Performed By: #### 3 2693-4 ####[facility] LABORATORYCLIA [id number] [address] PROCALCITONIN (LAB)on 2021 Procalcitonin [Mass/Vol] 0.08 ng/mL Normal <0.09 [facility] Comment on above: Order Comment: Speci men Type: BLOOD SPECIMENOrdering Facility: [facility] Address: [facility] [place] [address] Result Comment: For a guided interpretation of test results, please visit the Change in Procalcitonin Calculator, [email or web address]. Performed By: #### P ROCAL ####[facility] LABORATORYCLIA [id number] [address] Prealbumin [Mass/Vol]on 07-07 Prealbumin Nephelometry [Mass/Vol] 35 mg/dL Normal [facility] Comment on above: Order Comment: Speci men Type: BLOOD SPECIMENOrdering Facility: [facility] Address: [address] [place] [address] Performed By: #### 1 4338-8 ####[facility] LABORATORYCLIA [id number] [address] SARS-CoV-2 RNA Resp Ql MEGAN+p robeon 08-04-2021 SARS-CoV-2 (COVID-19) RNA MEGAN+probe Ql (Resp) COVID 19 RESULT: SARS-CoV-2 (Agent of COVID-19) Not Detected by RT-PCR or equivalent method. This test has been authorized by FDA under an Emergency Use Authorization (EUA). Normal [facility] Comment on above: Performed By: #### 9 4500-6 ####[facility] LABORATORYCLIA [id number] [address] STATES OF [facility] TYPE AND SCREENon 08-04-2021 ABO O Normal [facility] Comment on above: Order Comment: Speci men Type: BLOOD SPECIMENOrdering Facility: [facility] Address: [address] [place] [address] Performed By: #### T SCR ####[facility] BLOOD BANKCLIA [id number] [address] HISTORICAL AB SCR STATUS Negative Normal [facility] Comment on above: Order Comment: Speci men Type: BLOOD SPECIMENOrdering Facility: [facility] Address: [address] [place] [address] Performed By: #### T SCR ####[facility] BLOOD BANKCLIA [id number] [address] Rh Nom (Bld) Positive Normal [facility] Comment on above: Order Comment: Speci men Type: BLOOD SPECIMENOrdering Facility: [facility] Address: [address] [place] [address] Performed By: #### T SCR ####[facility] BLOOD BANKCLIA [id number] [address] TYPE AND SCREEN EXPIRATION 08/07/2021 23:59 Normal [facility] Comment on above: Order Comment: Speci men Type: BLOOD SPECIMENOrdering Facility: [facility] Address: [address] [place] [address] Performed By: #### T SCR ####[facility] BLOOD BANKCLIA [id number] [address] aPTT PPPon 08-04-2021 aPTT Coag (PPP) [Time] 51.8 s High 23.0-32.4 [facility] Comment on above: Order Comment: Speci men Type: BLOOD SPECIMENOrdering Facility: [facility] Address: [address] [place] [address] Performed By: #### 1 4979-9 ####[facility] LABORATORYCLIA [id number] [address] Basic metabolic 2000 panelon 08-03-2021 Anion gap [Moles/Vol] 9 mmol/L Normal 9-18 [facility] Comment on above: Order Comment: Speci men Type: BLOOD SPECIMENOrdering Facility: [facility] Address: [address] [place] [address] Performed By: #### 2 4321-2, 02539-8, 2777-1 ####[facility] LABORATORYCLIA [id number] [address] Calcium [Mass/Vol] 9.3 mg/dL Normal 8.5-10.2 [facility] Comment on above: Order Comment: Speci men Type: BLOOD SPECIMENOrdering Facility: [facility] Address: [address] [place] [address] Performed By: #### 2 4321-2, , 2776-05 ####[facility] LABORATORYCLIA [id number] [place] [address] [place] Chloride [Moles/Vol] 97 mmol/L Normal 97-105 [facility] Comment on above: Order Comment: Speci men Type: BLOOD SPECIMENOrdering Facility: [facility] Address: [address] [place] [address] Performed By: #### 2 4321-2, , 2776-05 ####[facility] LABORATORYCLIA [id number] [place] [address] [place] CO2 [Moles/Vol] 27 mmol/L Normal 22-30 [facility] Comment on above: Order Comment: Speci men Type: BLOOD SPECIMENOrdering Facility: [facility] Address: [address] [place] [address] Performed By: #### 2 4321-2, , 2776-05 ####[facility] LABORATORYCLIA [id number] [address] [place] Creatinine [Mass/Vol] 0.63 mg/dL Low 0.73-1.22 [facility] Comment on above: Order Comment: Speci men Type: BLOOD SPECIMENOrdering Facility: [facility] Address: [address] [place] [address] Performed By: #### 2 4321-2, , 2776-05 ####[facility] LABORATORYCLIA [id number] [address] ESTIMATED GLOMERULAR FILTRATION RATE 103 mL/min/1.73m??? Normal >=60 [facility] Comment on above: Order Comment: Speci men Type: BLOOD SPECIMENOrdering Facility: [facility] Address: [address] [place] [address] Result Comment: Luzmaria mated Glomerular Filtration Rate [...] #### 2 4321-2, , 2776-05 ####[facility] HOSPITALIA [id number] [place] [address] [place] Glucose [Mass/Vol] 136 mg/dL High 74-99 [facility] Comment on above: Order Comment: Shira feldman Type: BLOOD SPECIMENOrdering Facility: [facility] Address: [address] [place] [address] Result Comment: The [place] [employer] (ADA) [...] , 2776-05 ####[facility] LABORATORYCLIA [id number] [place] [id number] [place] Potassium [Moles/Vol] 4.1 mmol/L Normal 3.7-5.1 [facility] Comment on above: Order Comment: Shira feldman Type: BLOOD SPECIMENOrdering Facility: [facility] Address: [address] [place] [id number] Performed By: #### 2 4321-2, , 2776-05 ####[facility] LABORATORYCLIA [id number] [place] [address] [place] Sodium [Moles/Vol] 133 mmol/L Low 136-144 [facility] Comment on above: Order Comment: Speci men Type: BLOOD SPECIMENOrdering Facility: [facility] Address: [address] [place] [address] Performed By: #### 2 4321-2, 64294-0, 2777-1 ####[facility] LABORATORYCLIA [id number] [address] [place] Urea nitrogen [Mass/Vol] 40 mg/dL High 9-24 [facility] Comment on above: Order Comment: Speci men Type: BLOOD SPECIMENOrdering Facility: [facility] Address: [address] [place] [address] Performed By: #### 2 4321-2, , 2777 ####[facility] LABORATORYCLIA [id number] [address] OF [facility] CASE MANAGEMon 08-03-2021 CASE MANAGEM Normal [facility] CBC W Auto Differential pane l (Bld)on 08-03-2021 Basophils (Bld) [#/Vol] 0.06 10*3/uL Normal <0.11 [facility] Comment on above: Order Comment: Speci men Type: BLOOD SPECIMENOrdering Facility: [facility] Address: [address] [place] [address] Performed By: #### 5 7021-8 ####[facility] LABORATORYCLIA [id number] [address] [place] Basophils/100 WBC (Bld) 0.5 % Normal [facility] Comment on above: Order Comment: Speci men Type: BLOOD SPECIMENOrdering Facility: [facility] Address: [address] [place] [address] Performed By: #### 5 7021-8 ####[facility] LABORATORYCLIA [id number] [place] [address] [place] Differential cell count method Nom (Bld) Auto Normal [facility] Comment on above: Order Comment: Speci men Type: BLOOD SPECIMENOrdering Facility: [facility] Address: [address] [place] [address] Performed By: #### 5 7021-8 ####[facility] LABORATORYCLIA [id number] [address] [place] Eosinophils (Bld) [#/Vol] 0.23 10*3/uL Normal <0.46 [facility] Comment on above: Order Comment: Speci men Type: BLOOD SPECIMENOrdering Facility: [facility] Address: [address] [place] [address] Performed By: #### 5 7021-8 ####[facility] LABORATORYCLIA [id number] [address] Eosinophils/100 WBC (Bld) 1.8 % Normal [facility] Comment on above: Order Comment: Speci men Type: BLOOD SPECIMENOrdering Facility: [facility] Address: [address] [place] [address] Performed By: #### 5 7021-8 ####[facility] LABORATORYCLIA [id number] [address] Erythrocyte distribution width (RBC) [Ratio] 17.6 % High 11.5-15.0 [facility] Comment on above: Order Comment: Speci men Type: BLOOD SPECIMENOrdering Facility: [facility] Address: [address] [place] [address] Performed By: #### 5 7021-8 ####[facility] LABORATORYCLIA [id number] [address] Hematocrit (Bld) [Volume fraction] 30.7 % Low 39.0-51.0 [facility] Comment on above: Order Comment: Speci men Type: BLOOD SPECIMENOrdering Facility: [facility] Address: [address] [place] [address] Performed By: #### 5 7021-8 ####[facility] LABORATORYCLIA [id number] [address] OF [facility] Hemoglobin (Bld) [Mass/Vol] 9.3 g/dL Low 13.0-17.0 [facility] Comment on above: Order Comment: Speci men Type: BLOOD SPECIMENOrdering Facility: [facility] Address: [address] [place] [address] Performed By: #### 5 7021-8 ####[facility] LABORATORYCLIA [id number] [address] IMMATURE GRAN % 0.6 % Normal [facility] Comment on above: Order Comment: Speci men Type: BLOOD SPECIMENOrdering Facility: [facility] Address: [address] [place] [address] Performed By: #### 5 7021-8 ####[facility] LABORATORYCLIA [id number] [address] IMMATURE GRAN ABS 0.08 k/uL Normal <0.10 [facility] Comment on above: Order Comment: Speci men Type: BLOOD SPECIMENOrdering Facility: [facility] Address: [address] [place] [address] Performed By: #### 5 7021-8 ####[facility] LABORATORYCLIA [id number] [address] Lymphocytes (Bld) [#/Vol] 2.45 10*3/uL Normal 1.00-4.00 [facility] Comment on above: Order Comment: Speci men Type: BLOOD SPECIMENOrdering Facility: [facility] Address: [address] [place] [address] Performed By: #### 5 7021-8 ####[facility] LABORATORYCLIA [id number] [address] Lymphocytes/100 WBC (Bld) 19.7 % Normal [facility] Comment on above: Order Comment: Speci men Type: BLOOD SPECIMENOrdering Facility: [facility] Address: [address] [place] [address] Performed By: #### 5 7021-8 ####[facility] LABORATORYCLIA [id number] [address] MCH (RBC) [Entitic mass] 28.2 pg Normal 26.0-34.0 [facility] Comment on above: Order Comment: Speci men Type: BLOOD SPECIMENOrdering Facility: [facility] Address: [address] [place] [address] Performed By: #### 5 7021-8 ####[facility] LABORATORYCLIA [id number] [address] MCHC (RBC) [Mass/Vol] 30.3 g/dL Low 30.5-36.0 [facility] Comment on above: Order Comment: Speci men Type: BLOOD SPECIMENOrdering Facility: [facility] Address: [address] [place] [address] Performed By: #### 5 7021-8 ####[facility] LABORATORYCLIA [id number] [address] MCV (RBC) [Entitic vol] 93.0 fL Normal 80.0-100.0 [facility] Comment on above: Order Comment: Speci men Type: BLOOD SPECIMENOrdering Facility: [facility] Address: [address] [place] [address] Performed By: #### 5 7021-8 ####[facility] LABORATORYCLIA [id number] [address] Monocytes (Bld) [#/Vol] 0.72 10*3/uL Normal <0.87 [facility] Comment on above: Order Comment: Speci men Type: BLOOD SPECIMENOrdering Facility: [facility] Address: [address] [place] [address] Performed By: #### 5 7021-8 ####[facility] LABORATORYCLIA [id number] [address] Monocytes/100 WBC (Bld) 5.8 % Normal [facility] Comment on above: Order Comment: Speci men Type: BLOOD SPECIMENOrdering Facility: [facility] Address: [address] [place] [address] Performed By: #### 5 7021-8 ####[facility] LABORATORYCLIA [id number] [address] [place] Neutrophils (Bld) [#/Vol] 8.92 10*3/uL High 1.45-7.50 [facility] Comment on above: Order Comment: Speci men Type: BLOOD SPECIMENOrdering Facility: [facility] Address: [address] [place] [address] Performed By: #### 5 7021-8 ####[facility] LABORATORYCLIA [id number] [address] [place] Neutrophils/100 WBC (Bld) 71.6 % Normal [facility] Comment on above: Order Comment: Speci men Type: BLOOD SPECIMENOrdering Facility: [facility] Address: [address] [place] [address] Performed By: #### 5 7021-8 ####[facility] LABORATORYCLIA [id number] [address] [place] Nucleated RBC (Bld) [#/Vol] 10*3/uL Normal <0.01 [facility] Comment on above: Order Comment: Speci men Type: BLOOD SPECIMENOrdering Facility: [facility] Address: [address] [place] [address] Performed By: #### 5 7021-8 ####[facility] LABORATORYCLIA [id number] [address] [place] Nucleated RBC/100 WBC (Bld) [Ratio] 0.0 /100 WBC Normal [facility] Comment on above: Order Comment: Speci men Type: BLOOD SPECIMENOrdering Facility: [facility] Address: [address] [place] [address] Performed By: #### 5 7021-8 ####[facility] LABORATORYCLIA [id number] [place] [address] Platelet mean volume (Bld) [Entitic vol] 10.2 fL Normal 9.0-12.7 [facility] Comment on above: Order Comment: Speci men Type: BLOOD SPECIMENOrdering Facility: [facility] Address: [address] [place] [address] Performed By: #### 5 7021-8 ####[facility] LABORATORYCLIA [id number] [address] [place] Platelets (Bld) [#/Vol] 352 10*3/uL Normal 150-400 [facility] Comment on above: Order Comment: Speci men Type: BLOOD SPECIMENOrdering Facility: [facility] Address: [address] [place] [address] Performed By: #### 5 7021-8 ####[facility] LABORATORYCLIA [id number] [address] STATES OF [facility] RBC (Bld) [#/Vol] 3.30 10*6/uL Low 4.20-6.00 [facility] Comment on above: Order Comment: Speci men Type: BLOOD SPECIMENOrdering Facility: [facility] Address: [address] [place] [address] Performed By: #### 5 7021-8 ####[facility] LABORATORYCLIA [id number] [address] [place] WBC (Bld) [#/Vol] 12.46 10*3/uL High 3.70-11.00 [facility] Comment on above: Order Comment: Speci men Type: BLOOD SPECIMENOrdering Facility: [facility] Address: [address] [place] [address] Performed By: #### 5 7021-8 ####[facility] LABORATORYCLIA [id number] [address] OF [facility] CONSULT PROGon 08-03-2021 CONSULT PROG Normal [facility] Magnesium SerPl-mCncon 08-03 Magnesium [Mass/Vol] 2.2 mg/dL Normal 1.7-2.3 [facility] Comment on above: Order Comment: Speci men Type: BLOOD SPECIMENOrdering Facility: [facility] Address: [address] [place] [address] Performed By: #### 2 4321-2, 76265-0, 2776- ####[facility] LABORATORYCLIA [id number] [address] [place] [facility] [facility]UR[facility]OGon 08-03-2021 NURSING PROG Normal [facility] Phosphate SerPl-mCncon 08-03 Phosphate [Mass/Vol] 4.2 mg/dL Normal 2.7-4.8 [facility] Comment on above: Order Comment: Speci men Type: BLOOD SPECIMENOrdering Facility: [facility] Address: [address] [place] [address] Performed By: #### 2 4321-2, , 2776-05 ####[facility] LABORATORYCLIA [id number] [address] aPTT PPPon 08-03-2021 aPTT Coag (PPP) [Time] 50.0 s High 23.0-32.4 [facility] Comment on above: Order Comment: Speci men Type: BLOOD SPECIMENOrdering Facility: [facility] Address: [address] [place] [address] Performed By: #### 1 4979-9 ####[facility] LABORATORYCLIA [id number] [address] STATES OF [facility] CBC W Auto Differential pane l (Bld)on 08-02-2021 Basophils (Bld) [#/Vol] 10*3/uL Normal <0.11 [facility] Comment on above: Order Comment: Speci men Type: BLOOD SPECIMENOrdering Facility: [facility] Address: [address] [place] [address] Performed By: #### 5 7021-8 ####[facility] LABORATORYCLIA [id number] [address] Basophils/100 WBC (Bld) 0.2 % Normal [facility] Comment on above: Order Comment: Speci men Type: BLOOD SPECIMENOrdering Facility: [facility] Address: [address] [place] [address] Performed By: #### 5 7021-8 ####[facility] LABORATORYCLIA [id number] [place] [address] [place] Differential cell count method Nom (Bld) Auto Normal [facility] Comment on above: Order Comment: Speci men Type: BLOOD SPECIMENOrdering Facility: [facility] Address: [address] [place] [address] Performed By: #### 5 7021-8 ####[facility] LABORATORYCLIA [id number] [place] [address] [place] Eosinophils (Bld) [#/Vol] 10*3/uL Normal <0.46 [facility] Comment on above: Order Comment: Speci men Type: BLOOD SPECIMENOrdering Facility: [facility] Address: [address] [place] [address] Performed By: #### 5 7021-8 ####[facility] LABORATORYCLIA [id number] [address] STATES OF [facility] Eosinophils/100 WBC (Bld) 0.0 % Normal [facility] Comment on above: Order Comment: Speci men Type: BLOOD SPECIMENOrdering Facility: [facility] Address: [address] [place] [address] Performed By: #### 5 7021-8 ####[facility] LABORATORYCLIA [id number] [place] [address] [place] Erythrocyte distribution width (RBC) [Ratio] 17.3 % High 11.5-15.0 [facility] Comment on above: Order Comment: Speci men Type: BLOOD SPECIMENOrdering Facility: [facility] Address: [address] [place] [address] Performed By: #### 5 7021-8 ####[facility] LABORATORYCLIA [id number] [address] Hematocrit (Bld) [Volume fraction] 30.8 % Low 39.0-51.0 [facility] Comment on above: Order Comment: Speci men Type: BLOOD SPECIMENOrdering Facility: [facility] Address: [address] [place] [address] Performed By: #### 5 7021-8 ####[facility] LABORATORYCLIA [id number] [address] [place] Hemoglobin (Bld) [Mass/Vol] 9.7 g/dL Low 13.0-17.0 [facility] Comment on above: Order Comment: Speci men Type: BLOOD SPECIMENOrdering Facility: [facility] Address: [address] [place] [address] Performed By: #### 5 7021-8 ####[facility] LABORATORYCLIA [id number] [address] IMMATURE GRAN % 0.5 % Normal [facility] Comment on above: Order Comment: Speci men Type: BLOOD SPECIMENOrdering Facility: [facility] Address: [address] [place] [address] Performed By: #### 5 7021-8 ####[facility] LABORATORYCLIA [id number] [address] IMMATURE GRAN ABS 0.07 k/uL Normal <0.10 [facility] Comment on above: Order Comment: Speci men Type: BLOOD SPECIMENOrdering Facility: [facility] Address: [address] [place] [address] Performed By: #### 5 7021-8 ####[facility] LABORATORYCLIA [id number] [address] OF [place] Lymphocytes (Bld) [#/Vol] 1.60 10*3/uL Normal 1.00-4.00 [facility] Comment on above: Order Comment: Speci men Type: BLOOD SPECIMENOrdering Facility: [facility] Address: [address] [place] [address] Performed By: #### 5 7021-8 ####[facility] LABORATORYCLIA [id number] [address] Lymphocytes/100 WBC (Bld) 12.1 % Normal [facility] Comment on above: Order Comment: Speci men Type: BLOOD SPECIMENOrdering Facility: [facility] Address: [address] [place] [address] Performed By: #### 5 7021-8 ####[facility] LABORATORYCLIA [id number] [address] MCH (RBC) [Entitic mass] 28.6 pg Normal 26.0-34.0 [facility] Comment on above: Order Comment: Speci men Type: BLOOD SPECIMENOrdering Facility: [facility] Address: [address] [place] [address] Performed By: #### 5 7021-8 ####[facility] LABORATORYCLIA [id number] [address] MCHC (RBC) [Mass/Vol] 31.5 g/dL Normal 30.5-36.0 [facility] Comment on above: Order Comment: Speci men Type: BLOOD SPECIMENOrdering Facility: [facility] Address: [address] [place] [address] Performed By: #### 5 7021-8 ####[facility] LABORATORYCLIA [id number] [address] MCV (RBC) [Entitic vol] 90.9 fL Normal 80.0-100.0 [facility] Comment on above: Order Comment: Speci men Type: BLOOD SPECIMENOrdering Facility: [facility] Address: [address] [place] [address] Performed By: #### 5 7021-8 ####[facility] LABORATORYCLIA [id number] [address] Monocytes (Bld) [#/Vol] 0.39 10*3/uL Normal <0.87 [facility] Comment on above: Order Comment: Speci men Type: BLOOD SPECIMENOrdering Facility: [facility] Address: [address] [place] [address] Performed By: #### 5 7021-8 ####[facility] LABORATORYCLIA [id number] [address] [place] Monocytes/100 WBC (Bld) 3.0 % Normal [facility] Comment on above: Order Comment: Speci men Type: BLOOD SPECIMENOrdering Facility: [facility] Address: [address] [place] [address] Performed By: #### 5 7021-8 ####[facility] LABORATORYCLIA [id number] [place] [address] [place] Neutrophils (Bld) [#/Vol] 11.09 10*3/uL High 1.45-7.50 [facility] Comment on above: Order Comment: Speci men Type: BLOOD SPECIMENOrdering Facility: [facility] Address: [address] [place] [address] Performed By: #### 5 7021-8 ####[facility] LABORATORYCLIA [id number] [address] [place] Neutrophils/100 WBC (Bld) 84.2 % Normal [facility] Comment on above: Order Comment: Speci men Type: BLOOD SPECIMENOrdering Facility: [facility] Address: [address] [place] [address] Performed By: #### 5 7021-8 ####[facility]ORATORYCLIA [id number] [place] [address] [place] Nucleated RBC (Bld) [#/Vol] 10*3/uL Normal <0.01 [facility] Comment on above: Order Comment: Speci men Type: BLOOD SPECIMENOrdering Facility: [facility] Address: [address] [place] [address] Performed By: #### 5 7021-8 ####[facility]ORATORYCLIA [id number] [address] [place] Nucleated RBC/100 WBC (Bld) [Ratio] 0.0 /100 WBC Normal [facility] Comment on above: Order Comment: Speci men Type: BLOOD SPECIMENOrdering Facility: [facility] Address: [address] [place] [address] Performed By: #### 5 7021-8 ####[facility] LABORATORYCLIA [id number] [place] [address] [place] Platelet mean volume (Bld) [Entitic vol] 10.0 fL Normal 9.0-12.7 [facility] Comment on above: Order Comment: Speci men Type: BLOOD SPECIMENOrdering Facility: [facility] Address: [address] [place] [address] Performed By: #### 5 7021-8 ####[facility]ORATORYCLIA [id number] [place] [address] [place] Platelets (Bld) [#/Vol] 358 10*3/uL Normal 150-400 [facility] Comment on above: Order Comment: Speci men Type: BLOOD SPECIMENOrdering Facility: [facility] Address: [address] [place] [address] Performed By: #### 5 7021-8 ####[facility] LABORATORYCLIA [id number] [place] [address] [place] RBC (Bld) [#/Vol] 3.39 10*6/uL Low 4.20-6.00 [facility] Comment on above: Order Comment: Speci men Type: BLOOD SPECIMENOrdering Facility: [facility] Address: [address] [place] [address] Performed By: #### 5 7021-8 ####[facility] LABORATORYCLIA [id number] [place] [address] [place] WBC (Bld) [#/Vol] 13.17 10*3/uL High 3.70-11.00 [facility] Comment on above: Order Comment: Speci men Type: BLOOD SPECIMENOrdering Facility: [facility] Address: [address] [place] [address] Performed By: #### 5 7021-8 ####[facility] LABORATORYCLIA [id number] [address] OF [facility] NURSING PROGon 08-02-2021 NURSING PROG Normal [facility] THERAPY NTon 08-02-2021 THERAPY NT Normal [facility] aPTT PPPon 08-02-2021 aPTT Coag (PPP) [Time] 54.9 s High 23.0-32.4 [facility] Comment on above: Order Comment: Speci men Type: BLOOD SPECIMENOrdering Facility: [facility] Address: [address] [place] [address] Performed By: #### 1 4979-9 ####[facility] LABORATORYCLIA [id number] [address] [place] ALLIED HEALTHon 08-01-2021 ALLIED HEALTH Normal [facility] ALLIED HEALTH Normal [facility] Basic metabolic 2000 panelon 08-01-2021 Anion gap [Moles/Vol] 12 mmol/L Normal 9-18 [facility] Comment on above: Order Comment: Speci men Type: BLOOD SPECIMENOrdering Facility: [facility] Address: [address] [place] [address] Performed By: #### 2 4321-2, 44473-2, 57868-2, 2777-1 ####[facility] LABORATORYCLIA [id number] [place] [address] [place] Calcium [Mass/Vol] 9.1 mg/dL Normal 8.5-10.2 [facility] Comment on above: Order Comment: Speci men Type: BLOOD SPECIMENOrdering Facility: [facility] Address: [address] [place] [address] Performed By: #### 2 4321-2, 14140-1, 96409-9, 2777-1 ####[facility] LABORATORYCLIA [id number] [place] [address] [place] Chloride [Moles/Vol] 96 mmol/L Low 97-105 [facility] Comment on above: Order Comment: Speci men Type: BLOOD SPECIMENOrdering Facility: [facility] Address: [address] [place], [place] [address] Performed By: #### 2 4321-2, 15152-4, 32929-1, 277- ####[facility]ORATORYCLIA [id number] [place] [address] [place] CO2 [Moles/Vol] 27 mmol/L Normal 22-30 [facility] Comment on above: Order Comment: Speci men Type: BLOOD SPECIMENOrdering Facility: [facility] Address: [address] [place] [address] Performed By: #### 2 4321-2, 16829-4, 51863-3, 2776- ####[facility]ORATORYCLIA [id number] [address] STATES OF [facility] Creatinine [Mass/Vol] 0.64 mg/dL Low 0.73-1.22 [facility] Comment on above: Order Comment: Speci men Type: BLOOD SPECIMENOrdering Facility: [facility] Address: [address] [place] [address] Performed By: #### 2 4321-2, 33359-4, 54007-7, 2776-05 ####[facility]ORATORYCLIA [id number] [address] [place] ESTIMATED GLOMERULAR FILTRATION RATE 102 mL/min/1.73m??? Normal >=60 [facility] Comment on above: Order Comment: Speci men Type: BLOOD SPECIMENOrdering Facility: [facility] Address: [address] [place] [address] Result Comment: Luzmaria mated Glomerular Filtration Rate [...] actual GFR. Performed By: #### 2 4321-2, 88043-6, 01563-1, 2777-1 ####[facility]ORATORYCLIA [id number] [place] [address] [place] Glucose [Mass/Vol] 122 mg/dL High 74-99 [facility] Comment on above: Order Comment: Shira francia Type: BLOOD SPECIMENOrdering Facility: [facility] Address: [address] [place] [address] Result Comment: The [place] [employer] (ADA) [...] 2016.39(Suppl 1). Performed By: #### 2 4321-2, 46178-2, 62055-7, 2777-1 ####[facility]ORATORYCLIA [id number] [place] [address] [place] Potassium [Moles/Vol] 4.2 mmol/L Normal 3.7-5.1 [facility] Comment on above: Order Comment: Shira francia Type: BLOOD SPECIMENOrdering Facility: [facility] Address: [address] [address] Performed By: #### 2 4321-2, 84022-2, 51814-0, 2777-1 ####[facility]ORATORYCLIA [id number] [place] [address] [place] Sodium [Moles/Vol] 135 mmol/L Low 136-144 [facility] Comment on above: Order Comment: Johni francia Type: BLOOD SPECIMENOrdering Facility: [facility] Address: [address] [address] Performed By: #### 2 4321-2, 79640-9, 30146-3, 2777-1 ####[facility]ORATORYCLIA [id number] [place] [address] [place] Urea nitrogen [Mass/Vol] 36 mg/dL High 9-24 [facility] Comment on above: Order Comment: Speci men Type: BLOOD SPECIMENOrdering Facility: [facility] Address: [address] [place] [address] Performed By: #### 2 4321-2, 45967-7, 70236-0, 2777-1 ####[facility] LABORATORYCLIA [id number] [address] STATES OF [facility] CASE MANAGEMon 08-01-2021 CASE MANAGEM Normal [facility] CBC W Auto Differential pane l (Bld)on 08-01-2021 Basophils (Bld) [#/Vol] 0.04 10*3/uL Normal <0.11 [facility] Comment on above: Order Comment: Speci men Type: BLOOD SPECIMENOrdering Facility: [facility] Address: [address] [place] [address] Performed By: #### 5 7021-8 ####[facility]ORATORYCLIA [id number] [address] [place] Basophils/100 WBC (Bld) 0.3 % Normal [facility] Comment on above: Order Comment: Speci men Type: BLOOD SPECIMENOrdering Facility: [facility] Address: [address] [place] [address] Performed By: #### 5 7021-8 ####[facility]ORATORYCLIA [id number] [address] STATES OF [facility] Differential cell count method Nom (Bld) Auto Normal [facility] Comment on above: Order Comment: Speci men Type: BLOOD SPECIMENOrdering Facility: [facility] Address: [address] [place] [address] Performed By: #### 5 7021-8 ####[facility]ORATORYCLIA [id number] [address] [place] Eosinophils (Bld) [#/Vol] 0.37 10*3/uL Normal <0.46 [facility] Comment on above: Order Comment: Speci men Type: BLOOD SPECIMENOrdering Facility: [facility] Address: [address] [place] [address] Performed By: #### 5 7021-8 ####[facility]ORATORYCLIA [id number] [address] [place] Eosinophils/100 WBC (Bld) 3.1 % Normal [facility] Comment on above: Order Comment: Speci men Type: BLOOD SPECIMENOrdering Facility: [facility] Address: [address] [place] [address] Performed By: #### 5 7021-8 ####[facility]ORATORYCLIA [id number] [address] Erythrocyte distribution width (RBC) [Ratio] 17.5 % High 11.5-15.0 [facility] Comment on above: Order Comment: Speci men Type: BLOOD SPECIMENOrdering Facility: [facility] Address: [address] [place] [address] Performed By: #### 5 7021-8 ####[facility]ORATORYCLIA [id number] [address] [place] Hematocrit (Bld) [Volume fraction] 30.1 % Low 39.0-51.0 [facility] Comment on above: Order Comment: Speci men Type: BLOOD SPECIMENOrdering Facility: [facility] Address: [address] [place] [address] Performed By: #### 5 7021-8 ####[facility]ORATORYCLIA [id number] [address] [place] Hemoglobin (Bld) [Mass/Vol] 9.1 g/dL Low 13.0-17.0 [facility] Comment on above: Order Comment: Speci men Type: BLOOD SPECIMENOrdering Facility: [facility] Address: [address] [address] Performed By: #### 5 7021-8 ####[facility]ORATORYCLIA [id number] [address] IMMATURE GRAN % 0.6 % Normal [facility] Comment on above: Order Comment: Speci men Type: BLOOD SPECIMENOrdering Facility: [facility] Address: [address] [place] [address] Performed By: #### 5 7021-8 ####[facility]ORATORYCLIA [id number] [address] IMMATURE GRAN ABS 0.07 k/uL Normal <0.10 [facility] Comment on above: Order Comment: Speci men Type: BLOOD SPECIMENOrdering Facility: [facility] Address: [address] [place] [address] Performed By: #### 5 7021-8 ####[facility]ORATORYCLIA [id number] [address] Lymphocytes (Bld) [#/Vol] 2.05 10*3/uL Normal 1.00-4.00 [facility] Comment on above: Order Comment: Speci men Type: BLOOD SPECIMENOrdering Facility: [facility] Address: [address] [place] [address] Performed By: #### 5 7021-8 ####[facility]ORATORYCLIA [id number] [address] Lymphocytes/100 WBC (Bld) 17.1 % Normal [facility] Comment on above: Order Comment: Speci men Type: BLOOD SPECIMENOrdering Facility: [facility] Address: [address] [place] [address] Performed By: #### 5 7021-8 ####[facility]ORATORYCLIA [id number] [address] MCH (RBC) [Entitic mass] 27.7 pg Normal 26.0-34.0 [facility] Comment on above: Order Comment: Speci men Type: BLOOD SPECIMENOrdering Facility: [facility] Address: [address] [place] [address] Performed By: #### 5 7021-8 ####[facility]ORATORYCLIA [id number] [address] MCHC (RBC) [Mass/Vol] 30.2 g/dL Low 30.5-36.0 [facility] Comment on above: Order Comment: Speci men Type: BLOOD SPECIMENOrdering Facility: [facility] Address: [address] [place] [address] Performed By: #### 5 7021-8 ####[facility]ORATORYCLIA [id number] [address] MCV (RBC) [Entitic vol] 91.5 fL Normal 80.0-100.0 [facility] Comment on above: Order Comment: Speci men Type: BLOOD SPECIMENOrdering Facility: [facility] Address: [address] [place] [address] Performed By: #### 5 7021-8 ####[facility]ORATORYCLIA [id number] [address] Monocytes (Bld) [#/Vol] 0.53 10*3/uL Normal <0.87 [facility] Comment on above: Order Comment: Speci men Type: BLOOD SPECIMENOrdering Facility: [facility] Address: [address] [place] [address] Performed By: #### 5 7021-8 ####[facility]ORATORYCLIA [id number] [address] Monocytes/100 WBC (Bld) 4.4 % Normal [facility] Comment on above: Order Comment: Speci men Type: BLOOD SPECIMENOrdering Facility: [facility] Address: [address] [place] [address] Performed By: #### 5 7021-8 ####[facility] LABORATORYCLIA [id number] [place] [address] [place] Neutrophils (Bld) [#/Vol] 8.91 10*3/uL High 1.45-7.50 [facility] Comment on above: Order Comment: Speci men Type: BLOOD SPECIMENOrdering Facility: [facility] Address: [address] [place] [address] Performed By: #### 5 7021-8 ####[facility]ORATORYCLIA [id number] [address] [place] Neutrophils/100 WBC (Bld) 74.5 % Normal [facility] Comment on above: Order Comment: Speci men Type: BLOOD SPECIMENOrdering Facility: [facility] Address: [address] [place] [address] Performed By: #### 5 7021-8 ####[facility] LABORATORYCLIA [id number] [address] [place] Nucleated RBC (Bld) [#/Vol] 10*3/uL Normal <0.01 [facility] Comment on above: Order Comment: Speci men Type: BLOOD SPECIMENOrdering Facility: [facility] Address: [address] [place] [address] Performed By: #### 5 7021-8 ####[facility]ORATORYCLIA [id number] [address] [place] Nucleated RBC/100 WBC (Bld) [Ratio] 0.0 /100 WBC Normal [facility] Comment on above: Order Comment: Speci men Type: BLOOD SPECIMENOrdering Facility: [facility] Address: [address] [place] [address] Performed By: #### 5 7021-8 ####[facility]ORATORYCLIA [id number] [address] [place] Platelet mean volume (Bld) [Entitic vol] 10.4 fL Normal 9.0-12.7 [facility] Comment on above: Order Comment: Speci men Type: BLOOD SPECIMENOrdering Facility: [facility] Address: [address] [place] [address] Performed By: #### 5 7021-8 ####[facility]ORATORYCLIA [id number] [address] STATES OF [facility] Platelets (Bld) [#/Vol] 319 10*3/uL Normal 150-400 [facility] Comment on above: Order Comment: Speci men Type: BLOOD SPECIMENOrdering Facility: [facility] Address: [address] [place] [address] Performed By: #### 5 7021-8 ####[facility]ORATORYCLIA [id number] [place] [address] [place] RBC (Bld) [#/Vol] 3.29 10*6/uL Low 4.20-6.00 [facility] Comment on above: Order Comment: Speci men Type: BLOOD SPECIMENOrdering Facility: [facility] Address: [address] [place] [address] Performed By: #### 5 7021-8 ####[facility] LABORATORYCLIA [id number] [address] OF [facility] WBC (Bld) [#/Vol] 11.97 10*3/uL High 3.70-11.00 [facility] Comment on above: Order Comment: Speci men Type: BLOOD SPECIMENOrdering Facility: [facility] Address: [address] [place] [address] Performed By: #### 5 7021-8 ####[facility] LABORATORYCLIA [id number] [address] [place] BRAIN WO IVCONon 08-02-19 CT BRAIN WO IVCON Normal [facility] Magnesium SerPl-mCncon 08-01 Magnesium [Mass/Vol] 2.4 mg/dL High 1.7-2.3 [facility] Comment on above: Order Comment: Speci men Type: BLOOD SPECIMENOrdering Facility: [facility] Address: [address] [place] [address] Performed By: #### 2 4321-2, 08417-8, 10385-7, 2777-1 ####[facility] LABORATORYCLIA [id number] [address] [place] NURSING PROGon 08-01-2021 NURSING PROG Normal [facility] NUTRITIONon 08-01-2021 NUTRITION Normal [facility] Phosphate SerPl-mCncon 08-01 Phosphate [Mass/Vol] 3.3 mg/dL Normal 2.7-4.8 [facility] Comment on above: Order Comment: Speci men Type: BLOOD SPECIMENOrdering Facility: [facility] Address: [address] [place] [address] Performed By: #### 2 4321-2, 38025-6, 86685-7, 2777-1 ####[facility] LABORATORYCLIA [id number] [address] [place] Prealbumin [Mass/Vol]on 07-06 Prealbumin Nephelometry [Mass/Vol] 30 mg/dL Normal 17-36 [facility] Comment on above: Order Comment: Speci men Type: BLOOD SPECIMENOrdering Facility: [facility] Address: [address] [place] [address] Performed By: #### 2 4321-2, 62595-1, 12070-5, 2777-1 ####[facility] LABORATORYCLIA [id number] [address] [place] THERAPY NTon 08-01-2021 THERAPY NT Normal [facility] THERAPY NT Normal [facility] TYPE AND SCREENon 08-01-2021 ABO O Normal [facility] Comment on above: Order Comment: Speci men Type: BLOOD SPECIMENOrdering Facility: [facility] Address: [address] [place] [address] Performed By: #### T SCR ####[facility] BLOOD BANKCLIA [id number] [address] [place] HISTORICAL AB SCR STATUS Negative Normal [facility] Comment on above: Order Comment: Speci men Type: BLOOD SPECIMENOrdering Facility: [facility] Address: [address] [address] Performed By: #### T SCR ####[facility] BLOOD BANKCLIA [id number] [address] Rh Nom (Bld) Positive Normal [facility] Comment on above: Order Comment: Speci men Type: BLOOD SPECIMENOrdering Facility: [facility] Address: [address] [place] [address] Performed By: #### T SCR ####[facility] BLOOD BANKCLIA [id number] [address] TYPE AND SCREEN EXPIRATION 08/04/2021 23:59 Normal [facility] Comment on above: Order Comment: Speci men Type: BLOOD SPECIMENOrdering Facility: [facility] Address: [address] [place] [address] Performed By: #### T SCR ####[facility] BLOOD BANKCLIA [id number] [address] OF [facility] XR CHEST 1V FRONTALon 2021 XR CHEST 1V FRONTAL Normal [facility] aPTT PPPon 08-01-2021 aPTT Coag (PPP) [Time] 50.9 s High 23.0-32.4 [facility] Comment on above: Order Comment: Speci men Type: BLOOD SPECIMENOrdering Facility: [facility] Address: [address] [place] [address] Performed By: #### 1 4979-9 ####[facility] LABORATORYCLIA [id number] [address] CBC W Auto Differential pane l (Bld)on 07-31-2021 Basophils (Bld) [#/Vol] 0.05 10*3/uL Normal <0.11 [facility] Comment on above: Order Comment: Speci men Type: BLOOD SPECIMENOrdering Facility: [facility] Address: [address] [place] [address] Performed By: #### 5 7021-8 ####[facility] LABORATORYCLIA [id number] [address] [place] Basophils/100 WBC (Bld) 0.4 % Normal [facility] Comment on above: Order Comment: Speci men Type: BLOOD SPECIMENOrdering Facility: [facility] Address: [address] [place] [address] Performed By: #### 5 7021-8 ####[facility] LABORATORYCLIA [id number] [address] [place] Differential cell count method Nom (Bld) Auto Normal [facility] Comment on above: Order Comment: Speci men Type: BLOOD SPECIMENOrdering Facility: [facility] Address: [address] [place] [address] Performed By: #### 5 7021-8 ####[facility] LABORATORYCLIA [id number] [place] [address] [place] Eosinophils (Bld) [#/Vol] 0.51 10*3/uL High <0.46 [facility] Comment on above: Order Comment: Speci men Type: BLOOD SPECIMENOrdering Facility: [facility] Address: [address] [place] [address] Performed By: #### 5 7021-8 ####[facility] LABORATORYCLIA [id number] [address] [place] Eosinophils/100 WBC (Bld) 4.5 % Normal [facility] Comment on above: Order Comment: Speci men Type: BLOOD SPECIMENOrdering Facility: [facility] Address: [address] [place] [address] Performed By: #### 5 7021-8 ####[facility] LABORATORYCLIA [id number] [address] [place] Erythrocyte distribution width (RBC) [Ratio] 17.5 % High 11.5-15.0 [facility] Comment on above: Order Comment: Speci men Type: BLOOD SPECIMENOrdering Facility: [facility] Address: [address] [place] [address] Performed By: #### 5 7021-8 ####[facility] LABORATORYCLIA [id number] [address] Hematocrit (Bld) [Volume fraction] 30.4 % Low 39.0-51.0 [facility] Comment on above: Order Comment: Speci men Type: BLOOD SPECIMENOrdering Facility: [facility] Address: [address] [place] [address] Performed By: #### 5 7021-8 ####[facility] LABORATORYCLIA [id number] [address] Hemoglobin (Bld) [Mass/Vol] 9.2 g/dL Low 13.0-17.0 [facility] Comment on above: Order Comment: Speci men Type: BLOOD SPECIMENOrdering Facility: [facility] Address: [address] [place] [address] Performed By: #### 5 7021-8 ####[facility] LABORATORYCLIA [id number] [address] IMMATURE GRAN % 0.5 % Normal [facility] Comment on above: Order Comment: Speci men Type: BLOOD SPECIMENOrdering Facility: [facility] Address: [address] [place] [address] Performed By: #### 5 7021-8 ####[facility] LABORATORYCLIA [id number] [address] IMMATURE GRAN ABS 0.06 k/uL Normal <0.10 [facility] Comment on above: Order Comment: Speci men Type: BLOOD SPECIMENOrdering Facility: [facility] Address: [address] [place] [address] Performed By: #### 5 7021-8 ####[facility] LABORATORYCLIA [id number] [address] Lymphocytes (Bld) [#/Vol] 1.99 10*3/uL Normal 1.00-4.00 [facility] Comment on above: Order Comment: Speci men Type: BLOOD SPECIMENOrdering Facility: [facility] Address: [address] [place] [address] Performed By: #### 5 7021-8 ####[facility] LABORATORYCLIA [id number] [address] Lymphocytes/100 WBC (Bld) 17.6 % Normal [facility] Comment on above: Order Comment: Speci men Type: BLOOD SPECIMENOrdering Facility: [facility] Address: [address] [place] [address] Performed By: #### 5 7021-8 ####[facility] LABORATORYCLIA [id number] [address] MCH (RBC) [Entitic mass] 28.4 pg Normal 26.0-34.0 [facility] Comment on above: Order Comment: Speci men Type: BLOOD SPECIMENOrdering Facility: [facility] Address: [address] [place] [address] Performed By: #### 5 7021-8 ####[facility] LABORATORYCLIA [id number] [address] MCHC (RBC) [Mass/Vol] 30.3 g/dL Low 30.5-36.0 [facility] Comment on above: Order Comment: Speci men Type: BLOOD SPECIMENOrdering Facility: [facility] Address: [address] [place] [address] Performed By: #### 5 7021-8 ####[facility] LABORATORYCLIA [id number] [address] MCV (RBC) [Entitic vol] 93.8 fL Normal 80.0-100.0 [facility] Comment on above: Order Comment: Speci men Type: BLOOD SPECIMENOrdering Facility: [facility] Address: [address] [place] [address] Performed By: #### 5 7021-8 ####[facility] LABORATORYCLIA [id number] [address] Monocytes (Bld) [#/Vol] 0.57 10*3/uL Normal <0.87 [facility] Comment on above: Order Comment: Speci men Type: BLOOD SPECIMENOrdering Facility: [facility] Address: [address] [place] [address] Performed By: #### 5 7021-8 ####[facility]ORATORYCLIA [id number] [address] [place] Monocytes/100 WBC (Bld) 5.0 % Normal [facility] Comment on above: Order Comment: Speci men Type: BLOOD SPECIMENOrdering Facility: [facility] Address: [address] [place] [address] Performed By: #### 5 7021-8 ####[facility] LABORATORYCLIA [id number] [address] [place] Neutrophils (Bld) [#/Vol] 8.12 10*3/uL High 1.45-7.50 [facility] Comment on above: Order Comment: Speci men Type: BLOOD SPECIMENOrdering Facility: [facility] Address: [address] [place] [address] Performed By: #### 5 7021-8 ####[facility] LABORATORYCLIA [id number] [address] Neutrophils/100 WBC (Bld) 72.0 % Normal [facility] Comment on above: Order Comment: Speci men Type: BLOOD SPECIMENOrdering Facility: [facility] Address: [address] [place] [address] Performed By: #### 5 7021-8 ####[facility] LABORATORYCLIA [id number] [address] [place] Nucleated RBC (Bld) [#/Vol] 10*3/uL Normal <0.01 [facility] Comment on above: Order Comment: Speci men Type: BLOOD SPECIMENOrdering Facility: [facility] Address: [address] [place] [address] Performed By: #### 5 7021-8 ####[facility] LABORATORYCLIA [id number] [place] [address] [place] Nucleated RBC/100 WBC (Bld) [Ratio] 0.0 /100 WBC Normal [facility] Comment on above: Order Comment: Speci men Type: BLOOD SPECIMENOrdering Facility: [facility] Address: [address] [place] [address] Performed By: #### 5 7021-8 ####[facility] LABORATORYCLIA [id number] [place] [address] [place] Platelet mean volume (Bld) [Entitic vol] 10.9 fL Normal 9.0-12.7 [facility] Comment on above: Order Comment: Speci men Type: BLOOD SPECIMENOrdering Facility: [facility] Address: [address] [place] [address] Performed By: #### 5 7021-8 ####[facility] LABORATORYCLIA [id number] [address] [place] Platelets (Bld) [#/Vol] 303 10*3/uL Normal 150-400 [facility] Comment on above: Order Comment: Speci men Type: BLOOD SPECIMENOrdering Facility: [facility] Address: [address] [place] [address] Performed By: #### 5 7021-8 ####[facility] LABORATORYCLIA [id number] [place] [address] [place] RBC (Bld) [#/Vol] 3.24 10*6/uL Low 4.20-6.00 [facility] Comment on above: Order Comment: Speci men Type: BLOOD SPECIMENOrdering Facility: [facility] Address: [address] [place] [address] Performed By: #### 5 7021-8 ####[facility] LABORATORYCLIA [id number] [place] [address] [place] WBC (Bld) [#/Vol] 11.30 10*3/uL High 3.70-11.00 [facility] Comment on above: Order Comment: Speci men Type: BLOOD SPECIMENOrdering Facility: [facility] Address: [address] [place] [address] Performed By: #### 5 7021-8 ####[facility] LABORATORYCLIA [id number] [address] [place] NURSING PROGon 07-31-2021 NURSING PROG Normal [facility] aPTT PPPon 07-31-2021 aPTT Coag (PPP) [Time] 64.9 s High 23.0-32.4 [facility] Comment on above: Order Comment: Speci men Type: BLOOD SPECIMENOrdering Facility: [facility] Address: [address] [place] [address] Performed By: #### 1 4979-9 ####[facility] LABORATORYCLIA [id number] [address] [place] ALLIED HEALTHon 07-30-2021 ALLIED HEALTH Normal [facility] Bacteria CSF Culton 07-31-19 22 Bacteria identified Cx Nom (CSF) CULTURE, CSF: No growth 14 days GRAM STAIN: No organisms seen Few Mononuclear cells Rare Polymorphonuclear leukocytes Gram stain performed on cytospun specimen. Normal [facility] Comment on above: Performed By: #### 6 06-4 ####[facility] LABORATORYCLIA [id number] [place] [address] [place] Basic metabolic 2000 panelon 07-30-2021 Anion gap [Moles/Vol] 9 mmol/L Normal 9-18 [facility] Comment on above: Order Comment: Speci men Type: BLOOD SPECIMENOrdering Facility: [facility] Address: [address] [place] [address] Performed By: #### 2 777-1, 18881-3, 35966-2 ####[facility] LABORATORYCLIA [id number] [place] [address] [place] Calcium [Mass/Vol] 8.9 mg/dL Normal 8.5-10.2 [facility] Comment on above: Order Comment: Speci men Type: BLOOD SPECIMENOrdering Facility: [facility] Address: [address] [place] [address] Performed By: #### 2 777-1, 67400-0, ####[facility] LABORATORYCLIA [id number] [place] [address] [place] Chloride [Moles/Vol] 95 mmol/L Low 97-105 [facility] Comment on above: Order Comment: Speci men Type: BLOOD SPECIMENOrdering Facility: [facility] Address: [address] [place] [address] Performed By: #### 2 777-1, 85522-0, ####[facility] LABORATORYCLIA [id number] [address] [place] CO2 [Moles/Vol] 28 mmol/L Normal 22-30 [facility] Comment on above: Order Comment: Speci men Type: BLOOD SPECIMENOrdering Facility: [facility] Address: [address] [place] [address] Performed By: #### 2 777-1, , ####[facility] LABORATORYCLIA [id number] [address] [place] Creatinine [Mass/Vol] 0.67 mg/dL Low 0.73-1.22 [facility] Comment on above: Order Comment: Speci men Type: BLOOD SPECIMENOrdering Facility: [facility] Address: [address] [place] [address] Performed By: #### 2 777-1, , ####[facility] LABORATORYCLIA [id number] [address] OF [facility] ESTIMATED GLOMERULAR FILTRATION RATE 101 mL/min/1.73m??? Normal >=60 [facility] Comment on above: Order Comment: Speci men Type: BLOOD SPECIMENOrdering Facility: [facility] Address: [address] [place] [address] Result Comment: Luzmaria mated Glomerular Filtration Rate [...] actual GFR. Performed By: #### 2 777-1, 58179-6, ####[facility] LABORATORYCLIA [id number] [place] [address] [place] Glucose [Mass/Vol] 125 mg/dL High 74-99 [facility] Comment on above: Order Comment: Shira feldman Type: BLOOD SPECIMENOrdering Facility: [facility] Address: [address] [place] [id number] Result Comment: The [place] [employer] (ADA) [...] 777-1, , ####[facility] LABORATORYCLIA [id number] [place] [address] [place] Potassium [Moles/Vol] 3.9 mmol/L Normal 3.7-5.1 [facility] Comment on above: Order Comment: Shira feldman Type: BLOOD SPECIMENOrdering Facility: [facility] Address: [address] [place] [address] Performed By: #### 2 777-1, 85320-8, ####[facility] LABORATORYCLIA [id number] [place] [address] [place] Sodium [Moles/Vol] 132 mmol/L Low 136-144 [facility] Comment on above: Order Comment: Speci men Type: BLOOD SPECIMENOrdering Facility: [facility] Address: [address] [place] [address] Performed By: #### 2 777-1, 68000-9, ####[facility] LABORATORYCLIA [id number] [address] STATES [facility] Urea nitrogen [Mass/Vol] 38 mg/dL High 9-24 [facility] Comment on above: Order Comment: Speci men Type: BLOOD SPECIMENOrdering Facility: [facility] Address: [address] [place] [address] Performed By: #### 2 777-1, 30319-5, ####[facility] LABORATORYCLIA [id number] [address] STATES OF [facility] CBC W Auto Differential pane l (Bld)on 07-30-2021 Basophils (Bld) [#/Vol] 0.04 10*3/uL Normal <0.11 [facility] Comment on above: Order Comment: Speci men Type: BLOOD SPECIMENOrdering Facility: [facility] Address: [address] [place] [address] Performed By: #### 5 7021-8 ####[facility] LABORATORYCLIA [id number] [address] [place] Basophils/100 WBC (Bld) 0.4 % Normal [facility] Comment on above: Order Comment: Speci men Type: BLOOD SPECIMENOrdering Facility: [facility] Address: [address] [place] [address] Performed By: #### 5 7021-8 ####[facility] LABORATORYCLIA [id number] [address] Differential cell count method Nom (Bld) Auto Normal [facility] Comment on above: Order Comment: Speci men Type: BLOOD SPECIMENOrdering Facility: [facility] Address: [address] [place] [address] Performed By: #### 5 7021-8 ####[facility]ORATORYCLIA [id number] [address] [place] Eosinophils (Bld) [#/Vol] 0.30 10*3/uL Normal <0.46 [facility] Comment on above: Order Comment: Speci men Type: BLOOD SPECIMENOrdering Facility: [facility] Address: [address] [place] [address] Performed By: #### 5 7021-8 ####[facility] LABORATORYCLIA [id number] [address] Eosinophils/100 WBC (Bld) 2.7 % Normal [facility] Comment on above: Order Comment: Speci men Type: BLOOD SPECIMENOrdering Facility: [facility] Address: [address] [place] [address] Performed By: #### 5 7021-8 ####[facility] LABORATORYCLIA [id number] [address] Erythrocyte distribution width (RBC) [Ratio] 17.2 % High 11.5-15.0 [facility] Comment on above: Order Comment: Speci men Type: BLOOD SPECIMENOrdering Facility: [facility] Address: [address] [place] [address] Performed By: #### 5 7021-8 ####[facility] LABORATORYCLIA [id number] [address] [place] Hematocrit (Bld) [Volume fraction] 30.8 % Low 39.0-51.0 [facility] Comment on above: Order Comment: Speci men Type: BLOOD SPECIMENOrdering Facility: [facility] Address: [address] [place] [address] Performed By: #### 5 7021-8 ####[facility] LABORATORYCLIA [id number] [address] [place] Hemoglobin (Bld) [Mass/Vol] 9.4 g/dL Low 13.0-17.0 [facility] Comment on above: Order Comment: Speci men Type: BLOOD SPECIMENOrdering Facility: [facility] Address: [address] [place] [address] Performed By: #### 5 7021-8 ####[facility] LABORATORYCLIA [id number] [address] IMMATURE GRAN % 0.5 % Normal [facility] Comment on above: Order Comment: Speci men Type: BLOOD SPECIMENOrdering Facility: [facility] Address: [address] [place] [address] Performed By: #### 5 7021-8 ####[facility] LABORATORYCLIA [id number] [address] IMMATURE GRAN ABS 0.06 k/uL Normal <0.10 [facility] Comment on above: Order Comment: Speci men Type: BLOOD SPECIMENOrdering Facility: [facility] Address: [address] [place] [address] Performed By: #### 5 7021-8 ####[facility] LABORATORYCLIA [id number] [address] Lymphocytes (Bld) [#/Vol] 1.68 10*3/uL Normal 1.00-4.00 [facility] Comment on above: Order Comment: Speci men Type: BLOOD SPECIMENOrdering Facility: [facility] Address: [address] [place] [address] Performed By: #### 5 7021-8 ####[facility] LABORATORYCLIA [id number] [address] Lymphocytes/100 WBC (Bld) 15.3 % Normal [facility] Comment on above: Order Comment: Speci men Type: BLOOD SPECIMENOrdering Facility: [facility] Address: [address] [place] [address] Performed By: #### 5 7021-8 ####[facility] LABORATORYCLIA [id number] [address] MCH (RBC) [Entitic mass] 28.0 pg Normal 26.0-34.0 [facility] Comment on above: Order Comment: Speci men Type: BLOOD SPECIMENOrdering Facility: [facility] Address: [address] [place] [address] Performed By: #### 5 7021-8 ####[facility] LABORATORYCLIA [id number] [address] STATES OF [facility] MCHC (RBC) [Mass/Vol] 30.5 g/dL Normal 30.5-36.0 [facility] Comment on above: Order Comment: Speci men Type: BLOOD SPECIMENOrdering Facility: [facility] Address: [address] [place] [address] Performed By: #### 5 7021-8 ####[facility] LABORATORYCLIA [id number] [address] [place] OF [facility] MCV (RBC) [Entitic vol] 91.7 fL Normal 80.0-100.0 [facility] Comment on above: Order Comment: Speci men Type: BLOOD SPECIMENOrdering Facility: [facility] Address: [address] [place] [address] Performed By: #### 5 7021-8 ####[facility] LABORATORYCLIA [id number] [address] Monocytes (Bld) [#/Vol] 0.53 10*3/uL Normal <0.87 [facility] Comment on above: Order Comment: Speci men Type: BLOOD SPECIMENOrdering Facility: [facility] Address: [address] [place] [address] Performed By: #### 5 7021-8 ####[facility] LABORATORYCLIA [id number] [address] Monocytes/100 WBC (Bld) 4.8 % Normal [facility] Comment on above: Order Comment: Speci men Type: BLOOD SPECIMENOrdering Facility: [facility] Address: [address] [place] [address] Performed By: #### 5 7021-8 ####[facility] LABORATORYCLIA [id number] [place] [address] [place] Neutrophils (Bld) [#/Vol] 8.39 10*3/uL High 1.45-7.50 [facility] Comment on above: Order Comment: Speci men Type: BLOOD SPECIMENOrdering Facility: [facility] Address: [address] [place] [address] Performed By: #### 5 7021-8 ####[facility] LABORATORYCLIA [id number] [address] [place] Neutrophils/100 WBC (Bld) 76.3 % Normal [facility] Comment on above: Order Comment: Speci men Type: BLOOD SPECIMENOrdering Facility: [facility] Address: [address] [place] [address] Performed By: #### 5 7021-8 ####[facility] LABORATORYCLIA [id number] [address] STATES [facility] Nucleated RBC (Bld) [#/Vol] 10*3/uL Normal <0.01 [facility] Comment on above: Order Comment: Speci men Type: BLOOD SPECIMENOrdering Facility: [facility] Address: [address] [place] [address] Performed By: #### 5 7021-8 ####[facility] LABORATORYCLIA [id number] [address] [place] Nucleated RBC/100 WBC (Bld) [Ratio] 0.0 /100 WBC Normal [facility] Comment on above: Order Comment: Speci men Type: BLOOD SPECIMENOrdering Facility: [facility] Address: [address] [place] [address] Performed By: #### 5 7021-8 ####[facility] LABORATORYCLIA [id number] [address] [place] Platelet mean volume (Bld) [Entitic vol] 10.9 fL Normal 9.0-12.7 [facility] Comment on above: Order Comment: Speci men Type: BLOOD SPECIMENOrdering Facility: [facility] Address: [address] [place], [place] [id number] Performed By: #### 5 7021-8 ####[facility] LABORATORYCLIA [id number] [address] Platelets (Bld) [#/Vol] 287 10*3/uL Normal 150-400 [facility] Comment on above: Order Comment: Speci men Type: BLOOD SPECIMENOrdering Facility: [facility] Address: [address] [place] [address] Performed By: #### 5 7021-8 ####[facility] LABORATORYCLIA [id number] [address] RBC (Bld) [#/Vol] 3.36 10*6/uL Low 4.20-6.00 [facility] Comment on above: Order Comment: Speci men Type: BLOOD SPECIMENOrdering Facility: [facility] Address: [address] [place] [address] Performed By: #### 5 7021-8 ####[facility] LABORATORYCLIA [id number] [address] WBC (Bld) [#/Vol] 11.00 10*3/uL Normal 3.70-11.00 [facility] Comment on above: Order Comment: Speci men Type: BLOOD SPECIMENOrdering Facility: [facility] Address: [address] [place] [address] Performed By: #### 5 7021-8 ####[facility] LABORATORYCLIA [id number] [address] CSF MANUAL DIFFon 07-30-2021 DIF TTL, CSF 100 cells counted Normal [facility] Comment on above: Order Comment: Speci men Type: CEREBROSPINAL FLUIDOrdering Facility: [facility] Address: [address] [place] [address] Performed By: #### L [id number], [id number], [id number] ####[facility] LABORATORYCLIA [id number] [place] [address] [place] EOSIN%, CSF 0 % Normal [facility] Comment on above: Order Comment: Speci men Type: CEREBROSPINAL FLUIDOrdering Facility: [facility] Address: [address] [place] [address] Performed By: #### L [id number], [id number], [id number] ####[facility]ORATORYCLIA [id number] [place] [address] [place] LYMPH%, CSF 75 % Normal 50-90 [facility] Comment on above: Order Comment: Speci men Type: CEREBROSPINAL FLUIDOrdering Facility: [facility] Address: [address] [place] [address] Performed By: #### L [id number], [id number], [id number] ####[facility]ORATORYCLIA [id number] [place] [address] [place] MACRO%, CSF 9 % High <1 [facility] Comment on above: Order Comment: Speci men Type: CEREBROSPINAL FLUIDOrdering Facility: [facility] Address: [address] [place] [address] Performed By: #### L [id number], [id number], 73629-2 ####[facility]ORATORYCLIA [id number] [place] [address] [place] MONO%, CSF 10 % Normal 10-50 [facility] Comment on above: Order Comment: Speci men Type: CEREBROSPINAL FLUIDOrdering Facility: [facility] Address: [address] [place] [address] Performed By: #### L [id number], [id number], 16224-8 ####[facility]ORATORYCLIA [id number] [address] [place] OTHER CL%, CSF 4 % Normal [facility] Comment on above: Order Comment: Speci men Type: CEREBROSPINAL FLUIDOrdering Facility: [facility] Address: [address] [place] [address] Result Comment: Path review to follow. Performed By: #### L [id number], [id number], 47653-1 ####[facility]ORATORYCLIA [id number] [address] [place] REAC LYMPH %, CSF 2 % Normal [facility] Comment on above: Order Comment: Speci men Type: CEREBROSPINAL FLUIDOrdering Facility: [facility] Address: [address] [place] [address] Performed By: #### L [id number], [id number], 69921-2 ####[facility]ORATORYCLIA [id number] [address] [place] CSF PATHOLOGIST INTERP (LAB REFLEX ORDER-NO BILL)on 07-30-2021 CSF STAFF REVIEW Negative Normal [facility] Comment on above: Order Comment: Speci men Type: CEREBROSPINAL FLUIDOrdering Facility: [facility] Address: [address] [place] [address] Performed By: #### L [id number], IHQ6003, 60366-7 ####[facility]ORATORYCLIA [id number] [address] Pathologist name Reviewed by Eloise rebolledo MD Normal [facility] Comment on above: Order Comment: Speci men Type: CEREBROSPINAL FLUIDOrdering Facility: [facility] Address: [address] [place] [address] Performed By: #### L [id number], OIU2865, 07267-6 ####[facility]ORATORYCLIA [id number] [address] [place] CT BRAIN WO IVCONon 07-31-[address] BRAIN WO IVCON Normal [facility] Cell count panel (CSF)on Clarity (CSF) Clear Normal Clear [facility] Comment on above: Order Comment: Speci men Type: CEREBROSPINAL FLUIDOrdering Facility: [facility] Address: [address] [place] [address] Performed By: #### L [id number], ACQ8529, 37965-5 ####[facility]ORATORYCLIA [id number] [address] Clarity (Unsp spec) Clear Normal Clear [facility] Comment on above: Order Comment: Speci men Type: CEREBROSPINAL FLUIDOrdering Facility: [facility] Address: [address] [place] [address] Performed By: #### L [id number], ZNV1226, 33824-3 ####[facility]ORATORYCLIA [id number] [address] Color (CSF) Colorless Normal Colorless [facility] Comment on above: Order Comment: Speci men Type: CEREBROSPINAL FLUIDOrdering Facility: [facility] Address: [address] [place] [address] Performed By: #### L [id number], [id number], 48586-9 ####[facility]ORATORYCLIA [id number] [address] Color (Spun CSF) Colorless Normal Colorless [facility] Comment on above: Order Comment: Speci men Type: CEREBROSPINAL FLUIDOrdering Facility: [facility] Address: [address] [place], [place] [address] Performed By: #### L [id number], LIZ8590, 56133-2 ####[facility] LABORATORYCLIA [id number] [address] CSF [employer] Normal [facility] Comment on above: Order Comment: Speci men Type: CEREBROSPINAL FLUIDOrdering Facility: [facility] Address: [address] [place], [place] [address] Performed By: #### L [id number], KSI9713, 77553-6 ####[facility]ORATORYCLIA [id number] [address] RBC Manual cnt (CSF) [#/Vol] 9 cells/uL High 0-5 [facility] Comment on above: Order Comment: Speci men Type: CEREBROSPINAL FLUIDOrdering Facility: [facility] Address: [address] [place], [place] [address] Performed By: #### L [id number], BKF3519, 79281-0 ####[facility]ORATORYCLIA [id number] [place] [address] [place] WBC Manual cnt (CSF) [#/Vol] 8 cells/uL High 0-5 [facility] Comment on above: Order Comment: Speci men Type: CEREBROSPINAL FLUIDOrdering Facility: [facility] Address: [address] [place] [address] Performed By: #### L [id number], HUR2215, 44606-4 ####[facility]ORATORYCLIA [id number] [address] STATES OF [facility] Glucose CSF-mCncon Glucose (CSF) [Mass/Vol] 65 mg/dL Normal 40-70 [facility] Comment on above: Order Comment: Speci men Type: CEREBROSPINAL FLUIDOrdering Facility: [facility] Address: [address] [place] [address] Result Comment: Lumb ar CSF glucose values of healthy patients are approximately 60% of the plasma values and must always be compared with a concurrently measured plasma value for adequate clinical interpretation.References: 1. Glucose HK (GLUC3) [package insert V 12.0 Syrian]. [employer], [place], [place]. September 2015. 2. Michelle Moore, Loki, H. (2015). Chapter 7: Glucose and Lactate. Marianela Alcocer al.(eds.), Cerebrospinal Fluid in Clinical Neurology. [employer]enson: [employer]. Performed By: #### 2 342-4, 2880-3 ####[facility]ORATORYCLIA [id number] [address] [place] Magnesium SerPl-ncon 07-30 Magnesium [Mass/Vol] 2.5 mg/dL High 1.7-2.3 [facility] Comment on above: Order Comment: Speci men Type: BLOOD SPECIMENOrdering Facility: [facility] Address: [address] [place] [address] Performed By: #### 2 777-1, 29233-9, 98266-2 ####[facility]ORATORYCLIA [id number] [address] NURSING PROGon 07-30-2021 NURSING PROG Normal [facility] Phosphate SerPl-mCncon 07-30 Phosphate [Mass/Vol] 2.4 mg/dL Low 2.7-4.8 [facility] Comment on above: Order Comment: Speci men Type: BLOOD SPECIMENOrdering Facility: [facility] Address: [address] [place] [address] Performed By: #### 2 777-1, 96840-8, 10152-8 ####[facility]ORATORYCLIA [id number] [address] Prot CSF-mCncon 07-30-2021 Protein (CSF) [Mass/Vol] 50 mg/dL High 15-45 [facility] Comment on above: Order Comment: Speci men Type: CEREBROSPINAL FLUIDOrdering Facility: [facility] Address: [address] [place] [address] Performed By: #### 2 342-4, 2880-3 ####[facility]ORATORYCLIA [id number] [address] aPTT PPPon 07-30-2021 aPTT Coag (PPP) [Time] 64.1 s High 23.0-32.4 [facility] Comment on above: Order Comment: Speci men Type: BLOOD SPECIMENOrdering Facility: [facility] Address: [address] [place] [address] Performed By: #### 1 4979-9 ####[facility]ORATORYCLIA [id number] [address] [place] Bacteria CSF Culton 07-30-19 22 Bacteria identified Cx Nom (CSF) CULTURE, CSF: No growth 14 days GRAM STAIN: No cells or organisms seen Gram stain performed on cytospun specimen. Gram stain confirmed by microbiology Normal [facility] Comment on above: Performed By: #### 6 06-4 ####[facility]ORATORYCLIA [id number] [address] [place] CASE MANAGEMon 07-29-2021 CASE MANAGEM Normal [facility] CBC W Auto Differential pane l (Bld)on 07-29-2021 Basophils (Bld) [#/Vol] 0.03 10*3/uL Normal <0.11 [facility] Comment on above: Order Comment: Speci men Type: BLOOD SPECIMENOrdering Facility: [facility] Address: [address] [place] [address] Performed By: #### 5 7021-8 ####[facility]ATORYCLIA [id number] [address] Basophils/100 WBC (Bld) 0.3 % Normal [facility] Comment on above: Order Comment: Speci men Type: BLOOD SPECIMENOrdering Facility: [facility] Address: [address] [place] [address] Performed By: #### 5 7021-8 ####[facility]ORATORYCLIA [id number] [address] Differential cell count method Nom (Bld) Auto Normal [facility] Comment on above: Order Comment: Speci men Type: BLOOD SPECIMENOrdering Facility: [facility] Address: [address] [place] [address] Performed By: #### 5 7021-8 ####[facility]ORATORYCLIA [id number] [address] [place] Eosinophils (Bld) [#/Vol] 0.40 10*3/uL Normal <0.46 [facility] Comment on above: Order Comment: Speci men Type: BLOOD SPECIMENOrdering Facility: [facility] Address: [address] [place] [address] Performed By: #### 5 7021-8 ####[facility]ORATORYCLIA [id number] [address] Eosinophils/100 WBC (Bld) 3.9 % Normal [facility] Comment on above: Order Comment: Speci men Type: BLOOD SPECIMENOrdering Facility: [facility] Address: [address] [place] [address] Performed By: #### 5 7021-8 ####[facility]ORATORYCLIA [id number] [address] Erythrocyte distribution width (RBC) [Ratio] 17.1 % High 11.5-15.0 [facility] Comment on above: Order Comment: Speci men Type: BLOOD SPECIMENOrdering Facility: [facility] Address: [address] [place] [address] Performed By: #### 5 7021-8 ####[facility]ORATORYCLIA [id number] [address] Hematocrit (Bld) [Volume fraction] 32.0 % Low 39.0-51.0 [facility] Comment on above: Order Comment: Speci men Type: BLOOD SPECIMENOrdering Facility: [facility] Address: [address] [place] [address] Performed By: #### 5 7021-8 ####[facility]ORATORYCLIA [id number] [address] Hemoglobin (Bld) [Mass/Vol] 9.7 g/dL Low 13.0-17.0 [facility] Comment on above: Order Comment: Speci men Type: BLOOD SPECIMENOrdering Facility: [facility] Address: [address] [place] [address] Performed By: #### 5 7021-8 ####[facility]ORATORYCLIA [id number] [address] IMMATURE GRAN % 0.6 % Normal [facility] Comment on above: Order Comment: Speci men Type: BLOOD SPECIMENOrdering Facility: [facility] Address: [address] [place] [address] Performed By: #### 5 7021-8 ####[facility]ORATORYCLIA [id number] [address] IMMATURE GRAN ABS 0.06 k/uL Normal <0.10 [facility] Comment on above: Order Comment: Speci men Type: BLOOD SPECIMENOrdering Facility: [facility] Address: [address] [place] [address] Performed By: #### 5 7021-8 ####[facility]ORATORYCLIA [id number] [address] Lymphocytes (Bld) [#/Vol] 1.96 10*3/uL Normal 1.00-4.00 [facility] Comment on above: Order Comment: Speci men Type: BLOOD SPECIMENOrdering Facility: [facility] Address: [address] [place] [address] Performed By: #### 5 7021-8 ####[facility]ORATORYCLIA [id number] [address] Lymphocytes/100 WBC (Bld) 19.0 % Normal [facility] Comment on above: Order Comment: Speci men Type: BLOOD SPECIMENOrdering Facility: [facility] Address: [address] [place] [address] Performed By: #### 5 7021-8 ####[facility]ORATORYCLIA [id number] [address] [place] MCH (RBC) [Entitic mass] 28.0 pg Normal 26.0-34.0 [facility] Comment on above: Order Comment: Speci men Type: BLOOD SPECIMENOrdering Facility: [facility] Address: [address] [place] [address] Performed By: #### 5 7021-8 ####[facility]ORATORYCLIA [id number] [address] [place] MCHC (RBC) [Mass/Vol] 30.3 g/dL Low 30.5-36.0 [facility] Comment on above: Order Comment: Speci men Type: BLOOD SPECIMENOrdering Facility: [facility] Address: [address] [place] [address] Performed By: #### 5 7021-8 ####[facility]ORATORYCLIA [id number] [address] [place] MCV (RBC) [Entitic vol] 92.5 fL Normal 80.0-100.0 [facility] Comment on above: Order Comment: Speci men Type: BLOOD SPECIMENOrdering Facility: [facility] Address: [facility] [address] Performed By: #### 5 7021-8 ####[facility]ORATORYCLIA [id number] [place] [address] [place] Monocytes (Bld) [#/Vol] 0.53 10*3/uL Normal <0.87 [facility] Comment on above: Order Comment: Speci men Type: BLOOD SPECIMENOrdering Facility: [facility] Address: [address] [place] [address] Performed By: #### 5 7021-8 ####[facility]ORATORYCLIA [id number] [address] Monocytes/100 WBC (Bld) 5.2 % Normal [facility] Comment on above: Order Comment: Speci men Type: BLOOD SPECIMENOrdering Facility: [facility] Address: [address] [place] [address] Performed By: #### 5 7021-8 ####[facility]ORATORYCLIA [id number] [place] [address] [place] Neutrophils (Bld) [#/Vol] 7.31 10*3/uL Normal 1.45-7.50 [facility] Comment on above: Order Comment: Speci men Type: BLOOD SPECIMENOrdering Facility: [facility] Address: [address] [place] [address] Performed By: #### 5 7021-8 ####[facility]ORATORYCLIA [id number] [address] [place] Neutrophils/100 WBC (Bld) 71.0 % Normal [facility] Comment on above: Order Comment: Speci men Type: BLOOD SPECIMENOrdering Facility: [facility] Address: [address] [place] [address] Performed By: #### 5 7021-8 ####[facility]ORATORYCLIA [id number] [address] [place] Nucleated RBC (Bld) [#/Vol] 10*3/uL Normal <0.01 [facility] Comment on above: Order Comment: Speci men Type: BLOOD SPECIMENOrdering Facility: [facility] Address: [address] [place] [address] Performed By: #### 5 7021-8 ####[facility]ORATORYCLIA [id number] [address] [place] Nucleated RBC/100 WBC (Bld) [Ratio] 0.0 /100 WBC Normal [facility] Comment on above: Order Comment: Speci men Type: BLOOD SPECIMENOrdering Facility: [facility] Address: [address] [place] [address] Performed By: #### 5 7021-8 ####[facility]ORATORYCLIA [id number] [address] Platelet mean volume (Bld) [Entitic vol] 11.2 fL Normal 9.0-12.7 [facility] Comment on above: Order Comment: Speci men Type: BLOOD SPECIMENOrdering Facility: [facility] Address: [address] [place] [address] Performed By: #### 5 7021-8 ####[facility]ORATORYCLIA [id number] [address] [place] Platelets (Bld) [#/Vol] 276 10*3/uL Normal 150-400 [facility] Comment on above: Order Comment: Speci men Type: BLOOD SPECIMENOrdering Facility: [facility] Address: [address] [place] [address] Performed By: #### 5 7021-8 ####[facility]ORATORYCLIA [id number] [address] [place] RBC (Bld) [#/Vol] 3.46 10*6/uL Low 4.20-6.00 [facility] Comment on above: Order Comment: Speci men Type: BLOOD SPECIMENOrdering Facility: [facility] Address: [address] [place] [address] Performed By: #### 5 7021-8 ####[facility]ORATORYCLIA [id number] [address] STATES OF [facility] WBC (Bld) [#/Vol] 10.29 10*3/uL Normal 3.70-11.00 [facility] Comment on above: Order Comment: Speci men Type: BLOOD SPECIMENOrdering Facility: [facility] Address: [address] [place] [address] Performed By: #### 5 7021-8 ####[facility]ORATORYCLIA [id number] [address] NURSING PROGon 07-29-2021 NURSING PROG Normal [facility] THERAPY NTon 07-29-2021 THERAPY NT Normal [facility] aPTT PPPon 07-29-2021 aPTT Coag (PPP) [Time] 59.2 s High 23.0-32.4 [facility] Comment on above: Order Comment: Speci men Type: BLOOD SPECIMENOrdering Facility: [facility] Address: [address] [place] [address] Performed By: #### 1 4979-9 ####[facility]ORATORYCLIA [id number] [address] [place] ALLIED HEALTHon 07-28-2021 ALLIED HEALTH Normal [facility] Basic metabolic 2000 panelon 07-28-2021 Anion gap [Moles/Vol] 7 mmol/L Low 9-18 [facility] Comment on above: Order Comment: Speci men Type: BLOOD SPECIMENOrdering Facility: [facility] Address: [address] [place] [address] Performed By: #### 1 4338-8, 07648-5, 2777-1, 93994-4 ####[facility]ORATORYCLIA [id number] [address] STATES [facility] Calcium [Mass/Vol] 9.0 mg/dL Normal 8.5-10.2 [facility] Comment on above: Order Comment: Speci men Type: BLOOD SPECIMENOrdering Facility: [facility] Address: [address] [place] [address] Performed By: #### 1 4338-8, 77084-1, 2777-1, 77374-6 ####[facility]ORATORYCLIA [id number] [place] [address] [place] Chloride [Moles/Vol] 94 mmol/L Low 97-105 [facility] Comment on above: Order Comment: Speci men Type: BLOOD SPECIMENOrdering Facility: [facility] Address: [address] [place] [address] Performed By: #### 1 4338-8, 01458-1, 2777-1, 63369-5 ####[facility]ORATORYCLIA [id number] [address] STATES OF [facility] CO2 [Moles/Vol] 31 mmol/L High 22-30 [facility] Comment on above: Order Comment: Speci men Type: BLOOD SPECIMENOrdering Facility: [facility] Address: [address] [place] [address] Performed By: #### 1 4338-8, 79061-9, 2777-1, 86631-3 ####[facility]ORATORYCLIA [id number] [place] [address] [place] Creatinine [Mass/Vol] 0.75 mg/dL Normal 0.73-1.22 [facility] Comment on above: Order Comment: Speci men Type: BLOOD SPECIMENOrdering Facility: [facility] Address: [address] [place] [address] Performed By: #### 1 4338-8, 22097-2, 2777-1, 31429-5 ####[facility]ORATORYCLIA [id number] [address] STATES OF [facility] ESTIMATED GLOMERULAR FILTRATION RATE 98 mL/min/1.73m??? Normal >=60 [facility] Comment on above: Order Comment: Shira feldman Type: BLOOD SPECIMENOrdering Facility: [facility] Address: [address] [place], [place] [address] Result Comment: Luzmaria mated Glomerular Filtration Rate [...] actual GFR. Performed By: #### 1 4338-8, 94247-0, 2777-1, 56522-7 ####[facility]ITALCLIA [id number] [place] [address] [place] Glucose [Mass/Vol] 122 mg/dL High 74-99 [facility] Comment on above: Order Comment: Shira feldman Type: BLOOD SPECIMENOrdering Facility: [facility] Address: [address] [place] [address] Result Comment: The [employer] (ADA) [...] 2016.39(Suppl 1). Performed By: #### 1 4338-8, 18572-4, 2777-1, 58528-0 ####[facility]PITALCLIA [id number] [place] [id number] [place] Potassium [Moles/Vol] 4.0 mmol/L Normal 3.7-5.1 [facility] Comment on above: Order Comment: Shira men Type: BLOOD SPECIMENOrdering Facility: [facility] Address: [address] [place] [address] Performed By: #### 1 4338-8, 29061-8, 2777-, 84969-1 ####[facility]ORATORYCLIA [id number] [address] STATES OF [facility] Sodium [Moles/Vol] 132 mmol/L Low 136-144 [facility] Comment on above: Order Comment: Speci men Type: BLOOD SPECIMENOrdering Facility: [facility] Address: [address] [place] [address] Performed By: #### 1 4338-8, , 2777-, 29475-6 ####[facility] LABORATORYCLIA [id number] [address] [place] Urea nitrogen [Mass/Vol] 34 mg/dL High 01-28 [facility] Comment on above: Order Comment: Speci men Type: BLOOD SPECIMENOrdering Facility: [facility] Address: [address] [place] [address] Performed By: #### 1 4338-8, 48889-1, 2777-, 54877-6 ####[facility]ORATORYCLIA [id number] [address] [place] CBC W Auto Differential pane l (Bld)on 07-28-2021 Basophils (Bld) [#/Vol] 0.04 10*3/uL Normal <0.11 [facility] Comment on above: Order Comment: Speci men Type: BLOOD SPECIMENOrdering Facility: [facility] Address: [address] [place] [address] Performed By: #### 5 7021-8 ####[facility] LABORATORYCLIA [id number] [address] STATES OF [facility] Basophils/100 WBC (Bld) 0.5 % Normal [facility] Comment on above: Order Comment: Speci men Type: BLOOD SPECIMENOrdering Facility: [facility] Address: [address] [place] [address] Performed By: #### 5 7021-8 ####[facility]ORATORYCLIA [id number] [address] Differential cell count method Nom (Bld) Auto Normal [facility] Comment on above: Order Comment: Speci men Type: BLOOD SPECIMENOrdering Facility: [facility] Address: [address] [place] [address] Performed By: #### 5 7021-8 ####[facility]ORATORYCLIA [id number] [address] Eosinophils (Bld) [#/Vol] 0.30 10*3/uL Normal <0.46 [facility] Comment on above: Order Comment: Speci men Type: BLOOD SPECIMENOrdering Facility: [facility] Address: [address] [place] [address] Performed By: #### 5 7021-8 ####[facility] LABORATORYCLIA [id number] [address] Eosinophils/100 WBC (Bld) 3.4 % Normal [facility] Comment on above: Order Comment: Speci men Type: BLOOD SPECIMENOrdering Facility: [facility] Address: [address] [place] [address] Performed By: #### 5 7021-8 ####[facility] LABORATORYCLIA [id number] [address] Erythrocyte distribution width (RBC) [Ratio] 16.9 % High 11.5-15.0 [facility] Comment on above: Order Comment: Speci men Type: BLOOD SPECIMENOrdering Facility: [facility] Address: [address] [place] [address] Performed By: #### 5 7021-8 ####[facility] LABORATORYCLIA [id number] [address] Hematocrit (Bld) [Volume fraction] 30.3 % Low 39.0-51.0 [facility] Comment on above: Order Comment: Speci men Type: BLOOD SPECIMENOrdering Facility: [facility] Address: [address] [place] [address] Performed By: #### 5 7021-8 ####[facility] LABORATORYCLIA [id number] [address] Hemoglobin (Bld) [Mass/Vol] 9.2 g/dL Low 13.0-17.0 [facility] Comment on above: Order Comment: Speci men Type: BLOOD SPECIMENOrdering Facility: [facility] Address: [address] [place] [address] Performed By: #### 5 7021-8 ####[facility] LABORATORYCLIA [id number] [address] IMMATURE GRAN % 0.6 % Normal [facility] Comment on above: Order Comment: Speci men Type: BLOOD SPECIMENOrdering Facility: [facility] Address: [address] [place] [address] Performed By: #### 5 7021-8 ####[facility] LABORATORYCLIA [id number] [address] IMMATURE GRAN ABS 0.05 k/uL Normal <0.10 [facility] Comment on above: Order Comment: Speci men Type: BLOOD SPECIMENOrdering Facility: [facility] Address: [address] [place] [address] Performed By: #### 5 7021-8 ####[facility] LABORATORYCLIA [id number] [address] Lymphocytes (Bld) [#/Vol] 1.68 10*3/uL Normal 1.00-4.00 [facility] Comment on above: Order Comment: Speci men Type: BLOOD SPECIMENOrdering Facility: [facility] Address: [address] [place] [address] Performed By: #### 5 7021-8 ####[facility] LABORATORYCLIA [id number] [address] Lymphocytes/100 WBC (Bld) 19.2 % Normal [facility] Comment on above: Order Comment: Speci men Type: BLOOD SPECIMENOrdering Facility: [facility] [facility] Address: [address] [place] [address] Performed By: #### 5 7021-8 ####[facility] LABORATORYCLIA [id number] [address] MCH (RBC) [Entitic mass] 28.4 pg Normal 26.0-34.0 [facility] Comment on above: Order Comment: Speci men Type: BLOOD SPECIMENOrdering Facility: [facility] Address: [address] [place] [address] Performed By: #### 5 7021-8 ####[facility] LABORATORYCLIA [id number] [address] MCHC (RBC) [Mass/Vol] 30.4 g/dL Low 30.5-36.0 [facility] Comment on above: Order Comment: Speci men Type: BLOOD SPECIMENOrdering Facility: [facility] Address: [address] [place] [address] Performed By: #### 5 7021-8 ####[facility] LABORATORYCLIA [id number] [address] MCV (RBC) [Entitic vol] 93.5 fL Normal 80.0-100.0 [facility] Comment on above: Order Comment: Speci men Type: BLOOD SPECIMENOrdering Facility: [facility] Address: [address] [place] [address] Performed By: #### 5 7021-8 ####[facility] LABORATORYCLIA [id number] [address] Monocytes (Bld) [#/Vol] 0.58 10*3/uL Normal <0.87 [facility] Comment on above: Order Comment: Speci men Type: BLOOD SPECIMENOrdering Facility: [facility] Address: [address] [place] [address] Performed By: #### 5 7021-8 ####[facility]ITALCL[facility] [id number] [address] [place] Monocytes/100 WBC (Bld) 6.6 % Normal [facility] Comment on above: Order Comment: Speci men Type: BLOOD SPECIMENOrdering Facility: [facility] Address: [address] [place] [address] Performed By: #### 5 7021-8 ####[facility]ORATORYCLIA [id number] [place] [address] [place] Neutrophils (Bld) [#/Vol] 6.11 10*3/uL Normal 1.45-7.50 [facility] Comment on above: Order Comment: Speci men Type: BLOOD SPECIMENOrdering Facility: [facility] Address: [address] [place] [address] Performed By: #### 5 7021-8 ####[facility] LABORATORYCLIA [id number] [address] Neutrophils/100 WBC (Bld) 69.7 % Normal [facility] Comment on above: Order Comment: Speci men Type: BLOOD SPECIMENOrdering Facility: [facility] Address: [address] [place] [address] Performed By: #### 5 7021-8 ####[facility] LABORATORYCLIA [id number] [address] [place] Nucleated RBC (Bld) [#/Vol] 10*3/uL Normal <0.01 [facility] Comment on above: Order Comment: Speci men Type: BLOOD SPECIMENOrdering Facility: [facility] Address: [address] [place] [address] Performed By: #### 5 7021-8 ####[facility]ORATORYCLIA [id number] [address] [place] Nucleated RBC/100 WBC (Bld) [Ratio] 0.0 /100 WBC Normal [facility] Comment on above: Order Comment: Speci men Type: BLOOD SPECIMENOrdering Facility: [facility] Address: [address] Performed By: #### 5 7021-8 ####[facility] LABORATORYCLIA [id number] [address] STATES [facility] Platelet mean volume (Bld) [Entitic vol] 11.3 fL Normal 9.0-12.7 [facility] Comment on above: Order Comment: Speci men Type: BLOOD SPECIMENOrdering Facility: [facility] Address: [address] [place] [address] Performed By: #### 5 7021-8 ####[facility] LABORATORYCLIA [id number] [place] [address] [place] Platelets (Bld) [#/Vol] 238 10*3/uL Normal 150-400 [facility] Comment on above: Order Comment: Speci men Type: BLOOD SPECIMENOrdering Facility: [facility] Address: [address] [place] [address] Performed By: #### 5 7021-8 ####[facility] LABORATORYCLIA [id number] [address] [place] RBC (Bld) [#/Vol] 3.24 10*6/uL Low 4.20-6.00 [facility] Comment on above: Order Comment: Speci men Type: BLOOD SPECIMENOrdering Facility: [facility] Address: [address] [place] [address] Performed By: #### 5 7021-8 ####[facility] LABORATORYCLIA [id number] [address] [place] WBC (Bld) [#/Vol] 8.76 10*3/uL Normal 3.70-11.00 [facility] Comment on above: Order Comment: Speci men Type: BLOOD SPECIMENOrdering Facility: [facility] Address: [address] [place], [place] [address] Performed By: #### 5 7021-8 ####[facility] LABORATORYCLIA [id number] [address] [place] MRI BRAIN WO/W IVCONon 07-28 MRI BRAIN WO/W IVCON Normal [facility] Magnesium SerPl-mCncon 07-28 Magnesium [Mass/Vol] 2.5 mg/dL High 1.7-2.3 [facility] Comment on above: Order Comment: Speci men Type: BLOOD SPECIMENOrdering Facility: [facility] Address: [address] [place] [address] Performed By: #### 1 4338-8, 51729-3, 277-1, 36248-0 ####[facility] LABORATORYCLIA [id number] [address] OF [facility] NURSING PROGon 07-28-2021 NURSING PROG Normal [facility] NURSING PROG Normal [facility] Phosphate SerPl-mCncon 07-28 Phosphate [Mass/Vol] 2.8 mg/dL Normal 2.7-4.8 [facility] Comment on above: Order Comment: Speci men Type: BLOOD SPECIMENOrdering Facility: [facility] Address: [address] [place] [address] Performed By: #### 1 4338-8, 01674-2, 2776-05, 03980-8 ####[facility] LABORATORYCLIA [id number] [address] [place] Prealbumin [Mass/Vol]on 07-06 Prealbumin Nephelometry [Mass/Vol] 25 mg/dL Normal 17-36 [facility] Comment on above: Order Comment: Speci men Type: BLOOD SPECIMENOrdering Facility: [facility] Address: [facility] [place] [address] Performed By: #### 1 4338-8, 66346-2, 277-, 52075-5 ####[facility] LABORATORYCLIA [id number] [address] [place] aPTT PPPon 07-28-2021 aPTT Coag (PPP) [Time] 53.0 s High 23.0-32.4 [facility] Comment on above: Order Comment: Speci men Type: BLOOD SPECIMENOrdering Facility: [facility] Address: [address] [place] [address] Performed By: #### 1 4979-9 ####[facility] LABORATORYCLIA [id number] [address] [place] aPTT Coag (PPP) [Time] 57.2 s High 23.0-32.4 [facility] Comment on above: Order Comment: Speci men Type: BLOOD SPECIMENOrdering Facility: [facility] Address: [address] [place] [address] Performed By: #### 1 4979-9 ####[facility] LABORATORYCLIA [id number] [address] Bacteria CSF Culton 07-28-19 Bacteria identified Cx Nom (CSF) CULTURE, CSF: No growth 14 days GRAM STAIN: No organisms seen Rare Polymorphonuclear leukocytes Rare Red Blood Cells Gram stain performed on cytospun specimen. Normal [facility] Comment on above: Performed By: #### 6 06-4 ####[facility]ORATORYCLIA [id number] [address] Bacteria Spec Resp Culton Bacteria identified Respiratory culture Nom (Unsp spec) CULTURE, RESPIRATORY: Rare Normal respiratory chris present GRAM STAIN: No organisms seen Rare Polymorphonuclear leukocytes Rare Epithelial cells Normal [facility] Comment on above: Performed By: #### 3 2355-0 ####[facility] LABORATORYCLIA [id number] [address] CASE MANAGEMon 07-27-2021 CASE MANAGEM Normal [facility] CBC W Auto Differential pane l (Bld)on 07-27-2021 Basophils (Bld) [#/Vol] 0.04 10*3/uL Normal <0.11 [facility] Comment on above: Order Comment: Speci men Type: BLOOD SPECIMENOrdering Facility: [facility] Address: [address] [place] [address] Performed By: #### 5 7021-8 ####[facility]PITALCLIA [id number] [address] [place] Basophils/100 WBC (Bld) 0.4 % Normal [facility] Comment on above: Order Comment: Speci men Type: BLOOD SPECIMENOrdering Facility: [facility] Address: [address] [place] [address] Performed By: #### 5 7021-8 ####[facility] LABORATORYCLIA [id number] [address] Differential cell count method Nom (Bld) Auto Normal [facility] Comment on above: Order Comment: Speci men Type: BLOOD SPECIMENOrdering Facility: [facility] Address: [address] [place] [address] Performed By: #### 5 7021-8 ####[facility] LABORATORYCLIA [id number] [address] [place] Eosinophils (Bld) [#/Vol] 0.50 10*3/uL High <0.46 [facility] Comment on above: Order Comment: Speci men Type: BLOOD SPECIMENOrdering Facility: [facility] Address: [address] [place] [address] Performed By: #### 5 7021-8 ####[facility] LABORATORYCLIA [id number] [address] [place] Eosinophils/100 WBC (Bld) 5.2 % Normal [facility] Comment on above: Order Comment: Speci men Type: BLOOD SPECIMENOrdering Facility: [facility] Address: [address] [place] [address] Performed By: #### 5 7021-8 ####[facility] LABORATORYCLIA [id number] [address] Erythrocyte distribution width (RBC) [Ratio] 16.8 % High 11.5-15.0 [facility] Comment on above: Order Comment: Speci men Type: BLOOD SPECIMENOrdering Facility: [facility] Address: [address] [place] [address] Performed By: #### 5 7021-8 ####[facility]ORATORYCLIA [id number] [address] Hematocrit (Bld) [Volume fraction] 29.8 % Low 39.0-51.0 [facility] Comment on above: Order Comment: Speci men Type: BLOOD SPECIMENOrdering Facility: [facility] Address: [address] [place] [address] Performed By: #### 5 7021-8 ####[facility]ORATORYCLIA [id number] [address] Hemoglobin (Bld) [Mass/Vol] 9.0 g/dL Low 13.0-17.0 [facility] Comment on above: Order Comment: Speci men Type: BLOOD SPECIMENOrdering Facility: [facility] Address: [address] [place] [address] Performed By: #### 5 7021-8 ####[facility] LABORATORYCLIA [id number] [address] IMMATURE GRAN % 0.6 % Normal [facility] Comment on above: Order Comment: Speci men Type: BLOOD SPECIMENOrdering Facility: [facility] Address: [address] [place] [address] Performed By: #### 5 7021-8 ####[facility] LABORATORYCLIA [id number] [address] IMMATURE GRAN ABS 0.06 k/uL Normal <0.10 [facility] Comment on above: Order Comment: Speci men Type: BLOOD SPECIMENOrdering Facility: [facility] Address: [address] [place] [address] Performed By: #### 5 7021-8 ####[facility] LABORATORYCLIA [id number] [address] Lymphocytes (Bld) [#/Vol] 1.73 10*3/uL Normal 1.00-4.00 [facility] Comment on above: Order Comment: Speci men Type: BLOOD SPECIMENOrdering Facility: [facility] Address: [address] [place] [address] Performed By: #### 5 7021-8 ####[facility] LABORATORYCLIA [id number] [address] Lymphocytes/100 WBC (Bld) 17.9 % Normal [facility] Comment on above: Order Comment: Speci men Type: BLOOD SPECIMENOrdering Facility: [facility] Address: [address] [place] [address] Performed By: #### 5 7021-8 ####[facility] LABORATORYCLIA [id number] [address] MCH (RBC) [Entitic mass] 28.1 pg Normal 26.0-34.0 [facility] Comment on above: Order Comment: Speci men Type: BLOOD SPECIMENOrdering Facility: [facility] Address: [address] [place] [address] Performed By: #### 5 7021-8 ####[facility] LABORATORYCLIA [id number] [address] STATES OF [facility] MCHC (RBC) [Mass/Vol] 30.2 g/dL Low 30.5-36.0 [facility] Comment on above: Order Comment: Speci men Type: BLOOD SPECIMENOrdering Facility: [facility] Address: [address] [place] [address] Performed By: #### 5 7021-8 ####[facility] LABORATORYCLIA [id number] [address] STATES OF [facility] MCV (RBC) [Entitic vol] 93.1 fL Normal 80.0-100.0 [facility] Comment on above: Order Comment: Speci men Type: BLOOD SPECIMENOrdering Facility: [facility] Address: [address] [place] [address] Performed By: #### 5 7021-8 ####[facility] LABORATORYCLIA [id number] [place] [address] [place] Monocytes (Bld) [#/Vol] 0.59 10*3/uL Normal <0.87 [facility] Comment on above: Order Comment: Speci men Type: BLOOD SPECIMENOrdering Facility: [facility] Address: [address] [place] [address] Performed By: #### 5 7021-8 ####[facility] LABORATORYCLIA [id number] [address] [place] Monocytes/100 WBC (Bld) 6.1 % Normal [facility] Comment on above: Order Comment: Speci men Type: BLOOD SPECIMENOrdering Facility: [facility] Address: [address] [place] [address] Performed By: #### 5 7021-8 ####[facility] LABORATORYCLIA [id number] [address] [place] Neutrophils (Bld) [#/Vol] 6.75 10*3/uL Normal 1.45-7.50 [facility] Comment on above: Order Comment: Speci men Type: BLOOD SPECIMENOrdering Facility: [facility] Address: [address] [place] [address] Performed By: #### 5 7021-8 ####[facility] LABORATORYCLIA [id number] [address] [place] Neutrophils/100 WBC (Bld) 69.8 % Normal [facility] Comment on above: Order Comment: Speci men Type: BLOOD SPECIMENOrdering Facility: [facility] Address: [address] [place] [address] Performed By: #### 5 7021-8 ####[facility]ORATORYCLIA [id number] [place] [address] [place] Nucleated RBC (Bld) [#/Vol] 10*3/uL Normal <0.01 [facility] Comment on above: Order Comment: Speci men Type: BLOOD SPECIMENOrdering Facility: [facility] Address: [address] [place] [address] Performed By: #### 5 7021-8 ####[facility] LABORATORYCLIA [id number] [address] [place] Nucleated RBC/100 WBC (Bld) [Ratio] 0.0 /100 WBC Normal [facility] Comment on above: Order Comment: Speci men Type: BLOOD SPECIMENOrdering Facility: [facility] Address: [address] [place] [address] Performed By: #### 5 7021-8 ####[facility]ORATORYCLIA [id number] [address] [place] Platelet mean volume (Bld) [Entitic vol] 11.3 fL Normal 9.0-12.7 [facility] Comment on above: Order Comment: Speci men Type: BLOOD SPECIMENOrdering Facility: [facility] Address: [address] [place] [address] Performed By: #### 5 7021-8 ####[facility] LABORATORYCLIA [id number] [address] [place] Platelets (Bld) [#/Vol] 227 10*3/uL Normal 150-400 [facility] Comment on above: Order Comment: Speci men Type: BLOOD SPECIMENOrdering Facility: [facility] Address: [address] [place] [address] Performed By: #### 5 7021-8 ####[facility] LABORATORYCLIA [id number] [address] [place] RBC (Bld) [#/Vol] 3.20 10*6/uL Low 4.20-6.00 [facility] Comment on above: Order Comment: Speci men Type: BLOOD SPECIMENOrdering Facility: [facility] Address: [address] [place] [address] Performed By: #### 5 7021-8 ####[facility] LABORATORYCLIA [id number] [address] [place] WBC (Bld) [#/Vol] 9.67 10*3/uL Normal 3.70-11.00 [facility] Comment on above: Order Comment: Speci men Type: BLOOD SPECIMENOrdering Facility: [facility] Address: [address] [place] [address] Performed By: #### 5 7021-8 ####[facility] LABORATORYCLIA [id number] [address] [place] CONSULT PROGon 07-27-2021 CONSULT PROG Normal [facility] CSF MANUAL DIFFon 07-27-2021 DIF TTL, CSF 100 cells counted Normal [facility] Comment on above: Order Comment: Speci men Type: CEREBROSPINAL FLUIDOrdering Facility: [facility] Address: [address] [place] [address] Performed By: #### L [id number], 82192-4, [id number] ####[facility] LABORATORYCLIA [id number] [place] [address] [place] LYMPH%, CSF 75 % Normal 50-90 [facility] Comment on above: Order Comment: Speci men Type: CEREBROSPINAL FLUIDOrdering Facility: [facility] Address: [address] [place] [address] Performed By: #### L [id number], 33671-8, [id number] ####[facility]ORATORYCLIA [id number] [place] [address] [place] MONO%, CSF 22 % Normal 10-50 [facility] Comment on above: Order Comment: Speci men Type: CEREBROSPINAL FLUIDOrdering Facility: [facility] Address: [address] [place] [address] Performed By: #### L [id number], 25951-1, [id number] ####[facility] LABORATORYCLIA [id number] [address] [place] NEUT%, CSF 2 % Normal 0-3 [facility] Comment on above: Order Comment: Speci men Type: CEREBROSPINAL FLUIDOrdering Facility: [facility] Address: [address] [place] [address] Performed By: #### L [id number], 79279-2, [id number] ####[facility] LABORATORYCLIA [id number] [place] [address] [place] OTHER CL%, CSF 1 % Normal [facility] Comment on above: Order Comment: Speci men Type: CEREBROSPINAL FLUIDOrdering Facility: [facility] Address: [address] [place] [address] Result Comment: Path ologist review of microscopy results to follow Performed By: #### L [id number], 92515-3, [id number] ####[facility]ORATORYCLIA [id number] [place] [address] [place] CSF PATHOLOGIST INTERP (LAB REFLEX ORDER-NO BILL)on 07-27-2021 CSF STAFF REVIEW Negative Normal [facility] Comment on above: Order Comment: Speci men Type: CEREBROSPINAL FLUIDOrdering Facility: [facility] Address: [address] [place] [address] Performed By: #### L [id number], 28981-6, [id number] ####[facility]ORATORYCLIA [id number] [address] Pathologist name Reviewed by Amador Stevens MD Normal [facility] Comment on above: Order Comment: Speci men Type: CEREBROSPINAL FLUIDOrdering Facility: [facility] Address: [address] [place] [address] Performed By: #### L [id number], 28825-6, [id number] ####[facility]ORATORYCLIA [id number] [address] Cell count panel (CSF)on Clarity (CSF) Clear Normal Clear [facility] Comment on above: Order Comment: Speci men Type: CEREBROSPINAL FLUIDOrdering Facility: [facility] Address: [address] [place] [address] Performed By: #### L [id number], 74824-3, [id number] ####[facility] LABORATORYCLIA [id number] [address] [place] Clarity (Unsp spec) Not Indicated Normal Clear [facility] Comment on above: Order Comment: Speci men Type: CEREBROSPINAL FLUIDOrdering Facility: [facility] Address: [address] [place] [address] Performed By: #### L [id number], 53706-1, [id number] ####[facility] LABORATORYCLIA [id number] [address] Color (CSF) Colorless Normal Colorless [facility] Comment on above: Order Comment: Speci men Type: CEREBROSPINAL FLUIDOrdering Facility: [facility] Address: [address] [place] [address] Performed By: #### L [id number], 35811-8, [id number] ####[facility] LABORATORYCLIA [id number] [address] Color (Spun CSF) Not Indicated Normal Colorless [facility] Comment on above: Order Comment: Speci men Type: CEREBROSPINAL FLUIDOrdering Facility: [facility] Address: [address] [place] [address] Performed By: #### L [id number], 78361-8, [id number] ####[facility] LABORATORYCLIA [id number] [address] CSF [employer] Normal [facility] Comment on above: Order Comment: Speci men Type: CEREBROSPINAL FLUIDOrdering Facility: [facility] Address: [address] [place] [address] Performed By: #### L [id number], 49678-2, [id number] ####[facility]ORATORYCLIA [id number] [address] RBC Manual cnt (CSF) [#/Vol] 39 cells/uL High 0-5 [facility] Comment on above: Order Comment: Speci men Type: CEREBROSPINAL FLUIDOrdering Facility: [facility] Address: [address] [place] [address] Performed By: #### L [id number], 33119-2, [id number] ####[facility]ORATORYCLIA [id number] [address] [place] WBC Manual cnt (CSF) [#/Vol] 14 cells/uL High 0-5 [facility] Comment on above: Order Comment: Speci men Type: CEREBROSPINAL FLUIDOrdering Facility: [facility] Address: [address] [place] [address] Performed By: #### L [id number], 70487-4, [id number] ####[facility] LABORATORYCLIA [id number] [place] [address] [place] Glucose CSF-mCncon 2 Glucose (CSF) [Mass/Vol] 64 mg/dL Normal 40-70 [facility] Comment on above: Order Comment: Speci men Type: CEREBROSPINAL FLUIDOrdering Facility: [facility] Address: [address] [place] [address] Result Comment: Lumb ar CSF glucose values of healthy patients are approximately 60% of the plasma values and must always be compared with a concurrently measured plasma value for adequate clinical interpretation.References: 1. Glucose HK (GLUC3) [package insert V 12.0 Syrian]. [employer], [place], [place]. September 2015. 2. Michelle Moore, Loki, H. (2015). Chapter 7: Glucose and Lactate. Marianela Alcocer al.(eds.), Cerebrospinal Fluid in Clinical Neurology. Dickenson: [email or web address]. Performed By: #### 2 342-4, 2880-3 ####[facility] LABORATORYCLIA [id number] [place] [address] [place] NUTRITIONon 07-27-2021 NUTRITION Normal [facility] Prot CSF-mCncon 07-27-2021 Protein (CSF) [Mass/Vol] 58 mg/dL High 15-45 [facility] Comment on above: Order Comment: Speci men Type: CEREBROSPINAL FLUIDOrdering Facility: [facility] Address: [address] [place] [address] Performed By: #### 2 342-4, 2880-3 ####[facility] LABORATORYCLIA [id number] [address] [place] aPTT PPPon 07-27-2021 aPTT Coag (PPP) [Time] 68.4 s High 23.0-32.4 [facility] Comment on above: Order Comment: Speci men Type: BLOOD SPECIMENOrdering Facility: [facility] Address: [address] [place] [address] Performed By: #### 1 4979-9 ####[facility] LABORATORYCLIA [id number] [address] aPTT Coag (PPP) [Time] 51.3 s High 23.0-32.4 [facility] Comment on above: Order Comment: Speci men Type: BLOOD SPECIMENOrdering Facility: [facility] Address: [address] [place] [address] Performed By: #### 1 4979-9 ####[facility]ORATORYCLIA [id number] [address] ALLIED HEALTHon 07-26-2021 ALLIED HEALTH HNO ID: [id number] 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 Pt getting new EVD today. Try tomorrow. Normal [facility] Bacteria CSF Culton 07-27-19 Bacteria identified Cx Nom (CSF) Abnormal [facility] Comment on above: Performed By: #### 6 06-4 ####[facility] LABORATORYCLIA [id number] [address] STATES OF [facility] Basic metabolic 2000 panelon 07-26-2021 Anion gap [Moles/Vol] 6 mmol/L Low 9-18 [facility] Comment on above: Order Comment: Speci men Type: BLOOD SPECIMENOrdering Facility: [facility] Address: [address] [place] [address] Performed By: #### 2 4321-2 ####[facility] LABORATORYCLIA [id number] [address] Calcium [Mass/Vol] 9.2 mg/dL Normal 8.5-10.2 [facility] Comment on above: Order Comment: Speci men Type: BLOOD SPECIMENOrdering Facility: [facility] Address: [address] [place] [address] Performed By: #### 2 4321-2 ####[facility] LABORATORYCLIA [id number] [place] [address] [place] Chloride [Moles/Vol] 99 mmol/L Normal 97-105 [facility] Comment on above: Order Comment: Speci men Type: BLOOD SPECIMENOrdering Facility: [facility] Address: [address] [place] [address] Performed By: #### 2 4321-2 ####[facility] LABORATORYCLIA [id number] [place] [address] [place] CO2 [Moles/Vol] 32 mmol/L High 22-30 [facility] Comment on above: Order Comment: Speci men Type: BLOOD SPECIMENOrdering Facility: [facility] Address: [address] [place] [address] Performed By: #### 2 4321-2 ####[facility] LABORATORYCLIA [id number] [address] [place] Creatinine [Mass/Vol] 0.74 mg/dL Normal 0.73-1.22 [facility] Comment on above: Order Comment: Speci men Type: BLOOD SPECIMENOrdering Facility: [facility] Address: [address] [place] [address] Performed By: #### 2 4321-2 ####[facility] LABORATORYCLIA [id number] [address] [place] ESTIMATED GLOMERULAR FILTRATION RATE 98 mL/min/1.73m??? Normal >=60 [facility] Comment on above: Order Comment: Speci men Type: BLOOD SPECIMENOrdering Facility: [facility] Address: [address] [place] [address] Result Comment: Luzmaria mated Glomerular Filtration Rate [...] 2 4321-2 ####[facility] LABORATORYCLIA [id number] [place] [address] [place] Glucose [Mass/Vol] 126 mg/dL High 74-99 [facility] Comment on above: Order Comment: Speci men Type: BLOOD SPECIMENOrdering Facility: [facility] Address: [address] [place], [place] [address] Result Comment: The [place] [employer] (ADA) [...] 2 4321-2 ####[facility] LABORATORYCLIA [id number] [place] [address] [place] Potassium [Moles/Vol] 4.2 mmol/L Normal 3.7-5.1 [facility] Comment on above: Order Comment: Speci men Type: BLOOD SPECIMENOrdering Facility: [facility] Address: [address] [place] [address] Performed By: #### 2 4321-2 ####[facility] LABORATORYCLIA [id number] [place] [address] [place] Sodium [Moles/Vol] 137 mmol/L Normal 136-144 [facility] Comment on above: Order Comment: Speci men Type: BLOOD SPECIMENOrdering Facility: [facility] Address: [address] [place] [address] Performed By: #### 2 4321-2 ####[facility] LABORATORYCLIA [id number] [address] STATES [facility] Urea nitrogen [Mass/Vol] 36 mg/dL High 9-24 [facility] Comment on above: Order Comment: Speci men Type: BLOOD SPECIMENOrdering Facility: [facility] Address: [address] [place] [address] Performed By: #### 2 4321-2 ####[facility] LABORATORYCLIA [id number] [address] [place] CBC W Auto Differential pane l (Bld)on 07-26-2021 Basophils (Bld) [#/Vol] 0.04 10*3/uL Normal <0.11 [facility] Comment on above: Order Comment: Speci men Type: BLOOD SPECIMENOrdering Facility: [facility] Address: [address] [place] [address] Performed By: #### 5 7021-8 ####[facility] LABORATORYCLIA [id number] [address] [place] Basophils/100 WBC (Bld) 0.4 % Normal [facility] Comment on above: Order Comment: Speci men Type: BLOOD SPECIMENOrdering Facility: [facility] Address: [address] [place] [address] Performed By: #### 5 7021-8 ####[facility] LABORATORYCLIA [id number] [address] STATES [facility] Differential cell count method Nom (Bld) Auto Normal [facility] Comment on above: Order Comment: Speci men Type: BLOOD SPECIMENOrdering Facility: [facility] Address: [address] [place] [address] Performed By: #### 5 7021-8 ####[facility] LABORATORYCLIA [id number] [place] [address] [place] Eosinophils (Bld) [#/Vol] 0.63 10*3/uL High <0.46 [facility] Comment on above: Order Comment: Speci men Type: BLOOD SPECIMENOrdering Facility: [facility] Address: [address] [place] [address] Performed By: #### 5 7021-8 ####[facility] LABORATORYCLIA [id number] [address] STATES [facility] Eosinophils/100 WBC (Bld) 5.8 % Normal [facility] Comment on above: Order Comment: Speci men Type: BLOOD SPECIMENOrdering Facility: [facility] Address: [address] [place] [address] Performed By: #### 5 7021-8 ####[facility] LABORATORYCLIA [id number] [address] [place] Erythrocyte distribution width (RBC) [Ratio] 16.8 % High 11.5-15.0 [facility] Comment on above: Order Comment: Speci men Type: BLOOD SPECIMENOrdering Facility: [facility] Address: [address] [place] [address] Performed By: #### 5 7021-8 ####[facility] LABORATORYCLIA [id number] [address] STATES OF [facility] Hematocrit (Bld) [Volume fraction] 31.2 % Low 39.0-51.0 [facility] Comment on above: Order Comment: Speci men Type: BLOOD SPECIMENOrdering Facility: [facility] Address: [address] [place] [address] Performed By: #### 5 7021-8 ####[facility]ORATORYCLIA [id number] [address] [place] Hemoglobin (Bld) [Mass/Vol] 9.1 g/dL Low 13.0-17.0 [facility] Comment on above: Order Comment: Speci men Type: BLOOD SPECIMENOrdering Facility: [facility] Address: [address] [place] [address] Performed By: #### 5 7021-8 ####[facility]ORATORYCLIA [id number] [address] IMMATURE GRAN % 0.6 % Normal [facility] Comment on above: Order Comment: Speci men Type: BLOOD SPECIMENOrdering Facility: [facility] Address: [address] [place] [address] Performed By: #### 5 7021-8 ####[facility]ORATORYCLIA [id number] [address] IMMATURE GRAN ABS 0.07 k/uL Normal <0.10 [facility] Comment on above: Order Comment: Speci men Type: BLOOD SPECIMENOrdering Facility: [facility] Address: [address] [place] [address] Performed By: #### 5 7021-8 ####[facility]ORATORYCLIA [id number] [address] STATES [facility] Lymphocytes (Bld) [#/Vol] 2.16 10*3/uL Normal 1.00-4.00 [facility] Comment on above: Order Comment: Speci men Type: BLOOD SPECIMENOrdering Facility: [facility] Address: [address] [place] [address] Performed By: #### 5 7021-8 ####[facility]ORATORYCLIA [id number] [address] Lymphocytes/100 WBC (Bld) 20.0 % Normal [facility] Comment on above: Order Comment: Speci men Type: BLOOD SPECIMENOrdering Facility: [facility] Address: [address] [place] [address] Performed By: #### 5 7021-8 ####[facility]ORATORYCLIA [id number] [address] STATES [facility] MCH (RBC) [Entitic mass] 27.7 pg Normal 26.0-34.0 [facility] Comment on above: Order Comment: Speci men Type: BLOOD SPECIMENOrdering Facility: [facility] Address: [address] [place] [address] Performed By: #### 5 7021-8 ####[facility]ORATORYCLIA [id number] [address] STATES [facility] MCHC (RBC) [Mass/Vol] 29.2 g/dL Low 30.5-36.0 [facility] Comment on above: Order Comment: Speci men Type: BLOOD SPECIMENOrdering Facility: [facility] Address: [address] [place] [address] Performed By: #### 5 7021-8 ####[facility]ORATORYCLIA [id number] [address] [place] MCV (RBC) [Entitic vol] 95.1 fL Normal 80.0-100.0 [facility] Comment on above: Order Comment: Speci men Type: BLOOD SPECIMENOrdering Facility: [facility] Address: [address] [place] [address] Performed By: #### 5 7021-8 ####[facility]ORATORYCLIA [id number] [address] STATES OF [facility] Monocytes (Bld) [#/Vol] 0.63 10*3/uL Normal <0.87 [facility] Comment on above: Order Comment: Speci men Type: BLOOD SPECIMENOrdering Facility: [facility] Address: [address] [place] [address] Performed By: #### 5 7021-8 ####[facility]ORATORYCLIA [id number] [address] Monocytes/100 WBC (Bld) 5.8 % Normal [facility] Comment on above: Order Comment: Speci men Type: BLOOD SPECIMENOrdering Facility: [facility] Address: [address] [place] [address] Performed By: #### 5 7021-8 ####[facility]ORATORYCLIA [id number] [address] [place] Neutrophils (Bld) [#/Vol] 7.25 10*3/uL Normal 1.45-7.50 [facility] Comment on above: Order Comment: Speci men Type: BLOOD SPECIMENOrdering Facility: [facility] Address: [address] [place] [address] Performed By: #### 5 7021-8 ####[facility]ORATORYCLIA [id number] [address] Neutrophils/100 WBC (Bld) 67.4 % Normal [facility] Comment on above: Order Comment: Speci men Type: BLOOD SPECIMENOrdering Facility: [facility] Address: [address] [place] [address] Performed By: #### 5 7021-8 ####[facility]ORATORYCLIA [id number] [address] [place] Nucleated RBC (Bld) [#/Vol] 10*3/uL Normal <0.01 [facility] Comment on above: Order Comment: Speci men Type: BLOOD SPECIMENOrdering Facility: [facility] Address: [address] [place] [address] Performed By: #### 5 7021-8 ####[facility]ORATORYCLIA [id number] [address] Nucleated RBC/100 WBC (Bld) [Ratio] 0.0 /100 WBC Normal [facility] Comment on above: Order Comment: Speci men Type: BLOOD SPECIMENOrdering Facility: [facility] Address: [address] [place] [address] Performed By: #### 5 7021-8 ####[facility]ORATORYCLIA [id number] [address] [place] Platelet mean volume (Bld) [Entitic vol] 11.2 fL Normal 9.0-12.7 [facility] Comment on above: Order Comment: Speci men Type: BLOOD SPECIMENOrdering Facility: [facility] Address: [address] [place] [address] Performed By: #### 5 7021-8 ####[facility]ORATORYCLIA [id number] [address] STATES OF [facility] Platelets (Bld) [#/Vol] 245 10*3/uL Normal 150-400 [facility] Comment on above: Order Comment: Speci men Type: BLOOD SPECIMENOrdering Facility: [facility] Address: [address] [place] [address] Performed By: #### 5 7021-8 ####[facility]ORATORYCLIA [id number] [place] [address] [place] RBC (Bld) [#/Vol] 3.28 10*6/uL Low 4.20-6.00 [facility] Comment on above: Order Comment: Speci men Type: BLOOD SPECIMENOrdering Facility: [facility] Address: [address] [place] [address] Performed By: #### 5 7021-8 ####[facility]ORATORYCLIA [id number] [address] STATES OF [facility] WBC (Bld) [#/Vol] 10.78 10*3/uL Normal 3.70-11.00 [facility] Comment on above: Order Comment: Speci men Type: BLOOD SPECIMENOrdering Facility: [facility] Address: [address] [place] [address] Performed By: #### 5 7021-8 ####[facility]ORATORYCLIA [id number] [address] STATES OF [facility] CSF MANUAL DIFFon 07-26-2021 DIF TTL, CSF 100 cells counted Normal [facility] Comment on above: Order Comment: Speci men Type: CEREBROSPINAL FLUIDOrdering Facility: [facility] Address: [address] [place] [address] Performed By: #### 3 4563-7, [id number], [id number] ####[facility]ORATORYCLIA [id number] [address] [place] LYMPH%, CSF 26 % Low 50-90 [facility] Comment on above: Order Comment: Speci men Type: CEREBROSPINAL FLUIDOrdering Facility: [facility] Address: [address] [address] Performed By: #### 3 4563-7, [id number], [id number] ####[facility]ORATORYCLIA [id number] [place] [address] [place] MACRO%, CSF 10 % High <1 [facility] Comment on above: Order Comment: Speci men Type: CEREBROSPINAL FLUIDOrdering Facility: [facility] Address: [address] [place] [address] Performed By: #### 3 4563-7, [id number], [id number] ####[facility]ORATORYCLIA [id number] [place] [address] [place] MONO%, CSF 20 % Normal 10-50 [facility] Comment on above: Order Comment: Speci men Type: CEREBROSPINAL FLUIDOrdering Facility: [facility] Address: [address] [place] [address] Performed By: #### 3 4563-7, [id number], [id number] ####[facility]ORATORYCLIA [id number] [place] [address] [place] NEUT%, CSF 40 % High 0-3 [facility] Comment on above: Order Comment: Speci men Type: CEREBROSPINAL FLUIDOrdering Facility: [facility] Address: [address] [place] [address] Performed By: #### 3 4563-7, [id number], [id number] ####[facility]ORATORYCLIA [id number] [address] [place] OTHER CL%, CSF 2 % Normal [facility] Comment on above: Order Comment: Speci men Type: CEREBROSPINAL FLUIDOrdering Facility: [facility] Address: [address] [place] [address] Result Comment: Path review to follow. Performed By: #### 3 4563-7, [id number], [id number] ####[facility]ATORYCLIA [id number] [place] [address] [place] REAC LYMPH %, CSF 2 % Normal [facility] Comment on above: Order Comment: Speci men Type: CEREBROSPINAL FLUIDOrdering Facility: [facility] Address: [address] [place] [address] Performed By: #### 3 4563-7, [id number], [id number] ####[facility]ORATORYCLIA [id number] [address] [place] CSF PATHOLOGIST INTERP (LAB REFLEX ORDER-NO BILL)on 07-26-2021 CSF STAFF REVIEW Negative for maligna nt cells. Rare bacteria present, cocci in pairs and chains. Correlation with CSF cultures is recommended. Normal [facility] Comment on above: Order Comment: Speci men Type: CEREBROSPINAL FLUIDOrdering Facility: [facility] Address: [address] [place] [address] Performed By: #### 3 4563-7, [id number], [id number] ####[facility]ORATORYCLIA [id number] [address] Pathologist name Reviewed by Amador Stevens MD [facility] Comment on above: Order Comment: Speci men Type: CEREBROSPINAL FLUIDOrdering Facility: [facility] Address: [address] [place] [address] Performed By: #### 3 4563-7, [id number], [id number] ####[facility]ATORYCLIA [id number] [address] Cell count panel (CSF)on Clarity (CSF) Slightly Cloudy Abnormal Clear [facility] Comment on above: Order Comment: Speci men Type: CEREBROSPINAL FLUIDOrdering Facility: [facility] Address: [address] [place] [address] Performed By: #### 3 4563-7, [id number], [id number] ####[facility]ORATORYCLIA [id number] [address] [place] Clarity (Unsp spec) Clear Normal Clear [facility] Comment on above: Order Comment: Speci men Type: CEREBROSPINAL FLUIDOrdering Facility: [facility] Address: [address] [address] Performed By: #### 3 4563-7, [id number], [id number] ####[facility]ORATORYCLIA [id number] [address] Color (CSF) Colorless Normal Colorless [facility] Comment on above: Order Comment: Speci men Type: CEREBROSPINAL FLUIDOrdering Facility: [facility] Address: [facility] [address] Performed By: #### 3 4563-7, [id number], [id number] ####[facility]ATORYCLIA [id number] [address] Color (Spun CSF) Not Indicated Normal Colorless [facility] Comment on above: Order Comment: Speci men Type: CEREBROSPINAL FLUIDOrdering Facility: [facility] Address: [address] [place] [address] Performed By: #### 3 4563-7, [id number], [id number] ####[facility]ATORYCLIA [id number] [address] CSF TUBE NUMBER [employer] Normal [facility] Comment on above: Order Comment: Speci men Type: CEREBROSPINAL FLUIDOrdering Facility: [facility] Address: [address] [place] [address] Performed By: #### 3 4563-7, [id number], [id number] ####[facility]ATORYCLIA [id number] [address] RBC Manual cnt (CSF) [#/Vol] 1 cells/uL Normal 0-5 [facility] Comment on above: Order Comment: Speci men Type: CEREBROSPINAL FLUIDOrdering Facility: [facility] Address: [facility] [place] [address] Performed By: #### 3 4563-7, [id number], [id number] ####[facility]ORATORYCLIA [id number] [address] WBC Manual cnt (CSF) [#/Vol] 50 cells/uL High 0-5 [facility] Comment on above: Order Comment: Speci men Type: CEREBROSPINAL FLUIDOrdering Facility: [facility] Address: [address] [place] [address] Performed By: #### 3 4563-7, [id number], [id number] ####[facility]ORATORYCLIA [id number] [place] [address] [place] [facility] Glucose CSF-ncon Glucose (CSF) [Mass/Vol] 64 mg/dL Normal 40-70 [facility] Comment on above: Order Comment: Speci men Type: CEREBROSPINAL FLUIDOrdering Facility: [facility] Address: [address] [place] [address] Result Comment: Lumb ar CSF glucose values of healthy patients are approximately 60% of the plasma values and must always be compared with a concurrently measured plasma value for adequate clinical interpretation.References: 1. Glucose HK (GLUC3) [package insert V 12.0 Syrian]. [employer], [place], [place]. September 2015. 2. Michelle Moore, Loki HGarfield (2015). Chapter 7: Glucose and Lactate. F. Irina rose al.(eds.), Cerebrospinal Fluid in Clinical Neurology. Dickenson: [employer]. Performed By: #### 2 880-3, 2342-4 ####[facility]ORATORYCLIA [id number] [place] [address] [place] Magnesium SerPl-ncon 07-26 Magnesium [Mass/Vol] 2.3 mg/dL Normal 1.7-2.3 [facility] Comment on above: Order Comment: Speci men Type: BLOOD SPECIMENOrdering Facility: [facility] Address: [address] [place] [address] Performed By: #### 1 9123-9, 2777-1, 3016-3 ####[facility]ORATORYCLIA [id number] [place] [address] [place] NURSING PROGon 07-26-2021 NURSING PROG Normal [facility] Phosphate SerPl-ncon 07-26 Phosphate [Mass/Vol] 2.6 mg/dL Low 2.7-4.8 [facility] Comment on above: Order Comment: Speci men Type: BLOOD SPECIMENOrdering Facility: [facility] Address: [address] [place] [address] Performed By: #### 1 9123-9, 2777-1, 3016-3 ####[facility]ORATORYCLIA [id number] [place] [address] [place] Prot CSF-mCncon 07-26-2021 Protein (CSF) [Mass/Vol] 64 mg/dL High 15-45 [facility] Comment on above: Order Comment: Speci men Type: CEREBROSPINAL FLUIDOrdering Facility: [facility] Address: [address] [place] [address] Performed By: #### 2 880-3, 2342-4 ####[facility]ORATORYCLIA [id number] [address] OF [facility] THERAPY NTon 07-26-2021 THERAPY NT Normal [facility] TSH SerPl-aCncon 07-26-2021 TSH Qn 1.470 m[IU]/L Normal 0.270-4.200 [facility] Comment on above: Order Comment: Speci men Type: BLOOD SPECIMENOrdering Facility: [facility] Address: [address] [place] [address] Performed By: #### 1 9123-9, 2777-1, 3016-3 ####[facility]ORATORYCLIA [id number] [address] [place] VITAMIN B12 BLOODon 07-27-19 Cobalamin (Vitamin B12) [Mass/Vol] 934 pg/mL Normal 232-1,245 [facility] Comment on above: Order Comment: Speci men Type: BLOOD SPECIMENOrdering Facility: [facility] Address: [address] [place] [address] Performed By: #### B 12 ####[facility]ORATORYCLIA [id number] [address] [place] aPTT PPPon 07-26-2021 aPTT Coag (PPP) [Time] 53.6 s High 23.0-32.4 [facility] Comment on above: Order Comment: Speci men Type: BLOOD SPECIMENOrdering Facility: [facility] Address: [address] [place] [address] Performed By: #### 1 4979-9 ####[facility]ORATORYCLIA [id number] [address] aPTT Coag (PPP) [Time] 44.9 s High 23.0-32.4 [facility] Comment on above: Order Comment: Speci men Type: BLOOD SPECIMENOrdering Facility: [facility] Address: [address] [place] [address] Performed By: #### 1 4979-9 ####[facility]ORATORYCLIA [id number] [address] ALLIED HEALTHon 07-25-2021 ALLIED HEALTH HNO ID: [id number] Author: RT Rajwinder(R) Service: Radiology Author Type: Technologist Type: Allied Health Filed: 07/25/2021 1:37 PM Note Text: Called floor for MRI screening form [id number] Normal [facility] Bacteria Bld Culton 07-26-19 Bacteria identified Cx Nom (Bld) CULTURE, BLOOD: No growth 5 days Normal [facility] Comment on above: Performed By: #### 6 00-7 ####[facility]ORATORYCLIA [id number] [address] Bacteria identified Cx Nom (Bld) CULTURE, BLOOD: No growth 5 days Normal [facility] Comment on above: Performed By: #### 6 00-7 ####[facility]ORATORYCLIA [id number] [address] CASE MANAGEMon 07-25-2021 CASE MANAGEM Normal [facility] CBC W Auto Differential pane l (Bld)on 07-25-2021 Basophils (Bld) [#/Vol] 0.06 10*3/uL Normal <0.11 [facility] Comment on above: Order Comment: Speci men Type: BLOOD SPECIMENOrdering Facility: [facility] Address: [address] [place] [address] Performed By: #### 5 7021-8 ####[facility]ORATORYCLIA [id number] [place] [address] [place] Basophils/100 WBC (Bld) 0.6 % Normal [facility] Comment on above: Order Comment: Speci men Type: BLOOD SPECIMENOrdering Facility: [facility] Address: [address] [place] [address] Performed By: #### 5 7021-8 ####[facility]ORATORYCLIA [id number] [address] [place] Differential cell count method Nom (Bld) Auto Normal [facility] Comment on above: Order Comment: Speci men Type: BLOOD SPECIMENOrdering Facility: [facility] Address: [address] [place] [address] Performed By: #### 5 7021-8 ####[facility]ORATORYCLIA [id number] [address] [place] Eosinophils (Bld) [#/Vol] 0.26 10*3/uL Normal <0.46 [facility] Comment on above: Order Comment: Speci men Type: BLOOD SPECIMENOrdering Facility: [facility] Address: [address] [place] [address] Performed By: #### 5 7021-8 ####[facility]ORATORYCLIA [id number] [address] [place] Eosinophils/100 WBC (Bld) 2.5 % Normal [facility] Comment on above: Order Comment: Speci men Type: BLOOD SPECIMENOrdering Facility: [facility] Address: [address] [place] [address] Performed By: #### 5 7021-8 ####[facility]ORATORYCLIA [id number] [address] Erythrocyte distribution width (RBC) [Ratio] 16.9 % High 11.5-15.0 [facility] Comment on above: Order Comment: Speci men Type: BLOOD SPECIMENOrdering Facility: [facility] Address: [address] [place] [address] Performed By: #### 5 7021-8 ####[facility] LABORATORYCLIA [id number] [address] OF [facility] Hematocrit (Bld) [Volume fraction] 29.6 % Low 39.0-51.0 [facility] Comment on above: Order Comment: Speci men Type: BLOOD SPECIMENOrdering Facility: [facility] Address: [address] [place] [address] Performed By: #### 5 7021-8 ####[facility] LABORATORYCLIA [id number] [address] STATES OF [facility] Hemoglobin (Bld) [Mass/Vol] 8.8 g/dL Low 13.0-17.0 [facility] Comment on above: Order Comment: Speci men Type: BLOOD SPECIMENOrdering Facility: [facility] Address: [address] [place] [address] Performed By: #### 5 7021-8 ####[facility] LABORATORYCLIA [id number] [address] [place] IMMATURE GRAN % 0.6 % Normal [facility] Comment on above: Order Comment: Speci men Type: BLOOD SPECIMENOrdering Facility: [facility] Address: [address] [place] [address] Performed By: #### 5 7021-8 ####[facility] LABORATORYCLIA [id number] [address] IMMATURE GRAN ABS 0.06 k/uL Normal <0.10 [facility] Comment on above: Order Comment: Speci men Type: BLOOD SPECIMENOrdering Facility: [facility] Address: [address] [place] [address] Performed By: #### 5 7021-8 ####[facility] LABORATORYCLIA [id number] [address] [place] Lymphocytes (Bld) [#/Vol] 2.15 10*3/uL Normal 1.00-4.00 [facility] Comment on above: Order Comment: Speci men Type: BLOOD SPECIMENOrdering Facility: [facility] Address: [address] [place] [address] Performed By: #### 5 7021-8 ####[facility] LABORATORYCLIA [id number] [address] Lymphocytes/100 WBC (Bld) 20.7 % Normal [facility] Comment on above: Order Comment: Speci men Type: BLOOD SPECIMENOrdering Facility: [facility] Address: [address] [place] [address] Performed By: #### 5 7021-8 ####[facility] LABORATORYCLIA [id number] [address] MCH (RBC) [Entitic mass] 28.2 pg Normal 26.0-34.0 [facility] Comment on above: Order Comment: Speci men Type: BLOOD SPECIMENOrdering Facility: [facility] Address: [address] [place] [address] Performed By: #### 5 7021-8 ####[facility] LABORATORYCLIA [id number] [address] STATES OF [facility] MCHC (RBC) [Mass/Vol] 29.7 g/dL Low 30.5-36.0 [facility] Comment on above: Order Comment: Speci men Type: BLOOD SPECIMENOrdering Facility: [facility] Address: [address] [place] [address] Performed By: #### 5 7021-8 ####[facility] LABORATORYCLIA [id number] [address] STATES OF [facility] MCV (RBC) [Entitic vol] 94.9 fL Normal 80.0-100.0 [facility] Comment on above: Order Comment: Speci men Type: BLOOD SPECIMENOrdering Facility: [facility] Address: [address] [place] [address] Performed By: #### 5 7021-8 ####[facility] LABORATORYCLIA [id number] [address] [place] Monocytes (Bld) [#/Vol] 0.62 10*3/uL Normal <0.87 [facility] Comment on above: Order Comment: Speci men Type: BLOOD SPECIMENOrdering Facility: [facility] Address: [address] [place] [address] Performed By: #### 5 7021-8 ####[facility] LABORATORYCLIA [id number] [address] Monocytes/100 WBC (Bld) 6.0 % Normal [facility] Comment on above: Order Comment: Speci men Type: BLOOD SPECIMENOrdering Facility: [facility] Address: [address] [place] [address] Performed By: #### 5 7021-8 ####[facility] LABORATORYCLIA [id number] [address] [place] Neutrophils (Bld) [#/Vol] 7.25 10*3/uL Normal 1.45-7.50 [facility] Comment on above: Order Comment: Speci men Type: BLOOD SPECIMENOrdering Facility: [facility] Address: [address] [place] [address] Performed By: #### 5 7021-8 ####[facility]ORATORYCLIA [id number] [address] [place] Neutrophils/100 WBC (Bld) 69.6 % Normal [facility] Comment on above: Order Comment: Speci men Type: BLOOD SPECIMENOrdering Facility: [facility] Address: [address] [place] [address] Performed By: #### 5 7021-8 ####[facility] LABORATORYCLIA [id number] [place] [address] [place] Nucleated RBC (Bld) [#/Vol] 10*3/uL Normal <0.01 [facility] Comment on above: Order Comment: Speci men Type: BLOOD SPECIMENOrdering Facility: [facility] Address: [address] [place] [address] Performed By: #### 5 7021-8 ####[facility] LABORATORYCLIA [id number] [place] [address] [place] Nucleated RBC/100 WBC (Bld) [Ratio] 0.0 /100 WBC Normal [facility] Comment on above: Order Comment: Speci men Type: BLOOD SPECIMENOrdering Facility: [facility] Address: [address] [place] [address] Performed By: #### 5 7021-8 ####[facility] LABORATORYCLIA [id number] [place] [address] [place] Platelet mean volume (Bld) [Entitic vol] 11.3 fL Normal 9.0-12.7 [facility] Comment on above: Order Comment: Speci men Type: BLOOD SPECIMENOrdering Facility: [facility] Address: [address] [place] [address] Performed By: #### 5 7021-8 ####[facility] LABORATORYCLIA [id number] [place] [address] [place] Platelets (Bld) [#/Vol] 243 10*3/uL Normal 150-400 [facility] Comment on above: Order Comment: Speci men Type: BLOOD SPECIMENOrdering Facility: [facility] Address: [address] Performed By: #### 5 7021-8 ####[facility] LABORATORYCLIA [id number] [place] [address] [place] RBC (Bld) [#/Vol] 3.12 10*6/uL Low 4.20-6.00 [facility] Comment on above: Order Comment: Speci men Type: BLOOD SPECIMENOrdering Facility: [facility] Address: [address] [place] [address] Performed By: #### 5 7021-8 ####[facility] LABORATORYCLIA [id number] [place] [address] [place] WBC (Bld) [#/Vol] 10.40 10*3/uL Normal 3.70-11.00 [facility] Comment on above: Order Comment: Speci men Type: BLOOD SPECIMENOrdering Facility: [facility] Address: [address] [place] [address] Performed By: #### 5 7021-8 ####[facility] LABORATORYCLIA [id number] [address] [place] CONSULT PROGon 07-25-2021 CONSULT PROG Normal [facility] MYCOPLASMA PNEUM IGMon 07-25 M. PNEUMO IGM, QUAL Negative Normal Negative [facility] Comment on above: Order Comment: Speci [facility] Type: BLOOD SPECIMENOrdering Facility: [facility] Address: [address] [place] [address] Result Comment: Myco plasma pneumoniae IgM antibody test is used as an aid in diagnosis of recent infection with M. pneumoniae. It may occasionally remain elevated for extended periods after an acute infection. Cannot exclude recent infection if the specimen collected 7-10 days after onset of signs and symptoms. Clinical correlation is required. Performed By: #### M YCOPM ####[facility] LABCLIA [id number] [facility]DES [id number] [place] NURSING PROGon 07-25-2021 NURSING PROG Normal [facility] THERAPY NTon 07-25-2021 THERAPY NT Normal [facility] THERAPY NT Normal [facility] aPTT PPPon 07-25-2021 aPTT Coag (PPP) [Time] 62.6 s High 23.0-32.4 [facility] Comment on above: Order Comment: Speci men Type: BLOOD SPECIMENOrdering Facility: [facility] Address: [address] [place] [address] Performed By: #### 1 4979-9 ####[facility] LABORATORYCLIA [id number] [place] [address] [place] Bacteria Ur Culton 2 Bacteria identified Cx Nom (U) CULTURE, URINE: No growth (<100 CFU/ml) Normal [facility] Comment on above: Performed By: #### 6 30-4 ####[facility] LABORATORYCLIA [id number] [place] [address] [place] Basic metabolic 2000 panelon 07-24-2021 Anion gap [Moles/Vol] 13 mmol/L Normal 9-18 [facility] Comment on above: Order Comment: Speci men Type: BLOOD SPECIMENOrdering Facility: [facility] Address: [address] [place] [address] Performed By: #### 1 9123-9, KATIE, 2776-05, 50283-0 ####[facility] LABORATORYCLIA [id number] [place] [address] [place] Calcium [Mass/Vol] 9.5 mg/dL Normal 8.5-10.2 [facility] Comment on above: Order Comment: Speci men Type: BLOOD SPECIMENOrdering Facility: [facility] Address: [address] [place] [address] Performed By: #### 1 9123-9, KATIE, 2776-05, 19422-5 ####[facility] LABORATORYCLIA [id number] [place] [address] [place] Chloride [Moles/Vol] 102 mmol/L Normal 97-105 [facility] Comment on above: Order Comment: Speci men Type: BLOOD SPECIMENOrdering Facility: [facility] Address: [address] [address] Performed By: #### 1 9123-9, KATIE, 2776-05, ####[facility] LABORATORYCLIA [id number] [place] [address] [place] CO2 [Moles/Vol] 28 mmol/L Normal 22-30 [facility] Comment on above: Order Comment: Speci men Type: BLOOD SPECIMENOrdering Facility: [facility] Address: [address] [address] Performed By: #### 1 9123-9, PROCAL, 2777-1, 64022-2 ####[facility]PITALIA [id number] [address] [place] Creatinine [Mass/Vol] 0.86 mg/dL Normal 0.73-1.22 [facility] Comment on above: Order Comment: Speci men Type: BLOOD SPECIMENOrdering Facility: [facility] Address: [address] [address] Performed By: #### 1 9123-9, [facility], 277-, 91592-1 ####[facility] HOSPITALIA [id number] [address] [place] ESTIMATED GLOMERULAR FILTRATION RATE 94 mL/min/1.73m??? Normal >=60 [facility] Comment on above: Order Comment: Speci men Type: BLOOD SPECIMENOrdering Facility: [facility] Address: [address] [address] Result Comment: Luzmaria mated Glomerular Filtration Rate [...] Performed By: #### 1 9123-9, PROCAL, 2777-1, 80623-0 ####[facility]PITALIA [id number] [address] [place] Glucose [Mass/Vol] 148 mg/dL High 74-99 [facility] Comment on above: Order Comment: Speci men Type: BLOOD SPECIMENOrdering Facility: [facility] Address: [address] [address] Result Comment: The [place] [employer] (ADA) [...] Performed By: #### 1 9123-9, PROCAL, 2776-, 26953-6 ####[facility] LABORATORYCLIA [id number] [place] [address] [place] Potassium [Moles/Vol] 4.0 mmol/L Normal 3.7-5.1 [facility] Comment on above: Order Comment: Shira feldman Type: BLOOD SPECIMENOrdering Facility: [facility] Address: [address] [place] [address] Performed By: #### 1 9123-9, [facility], 2776-05, 85165-4 ####[facility] [id number] [place] [address] [place] Sodium [Moles/Vol] 143 mmol/L Normal 136-144 [facility] Comment on above: Order Comment: Shira feldman Type: BLOOD SPECIMENOrdering Facility: [facility] Address: [address] [place] [address] Performed By: #### 1 9123-9, PROCIL, 2776-05, 33920-7 ####[facility] LABORATORYCLIA [id number] [place] [address] [place] Urea nitrogen [Mass/Vol] 38 mg/dL High 9-24 [facility] Comment on above: Order Comment: Shira feldman Type: BLOOD SPECIMENOrdering Facility: [facility] Address: [address] [address] Performed By: #### 1 9123-9, PROCAL, 7-, 23610-1 ####[facility] LABORATORYCLIA [id number] [place] [address] [place] CBC W Auto Differential pane l (Bld)on 07-24-2021 Basophils (Bld) [#/Vol] 0.06 10*3/uL Normal <0.11 [facility] Comment on above: Order Comment: Speci men Type: BLOOD SPECIMENOrdering Facility: [facility] Address: [address] [place] [address] Performed By: #### 5 7021-8 ####[facility] LABORATORYCLIA [id number] [address] STATES [facility] Basophils/100 WBC (Bld) 0.6 % Normal [facility] Comment on above: Order Comment: Speci men Type: BLOOD SPECIMENOrdering Facility: [facility] Address: [address] [place] [address] Performed By: #### 5 7021-8 ####[facility] LABORATORYCLIA [id number] [address] Differential cell count method Nom (Bld) Auto Normal [facility] Comment on above: Order Comment: Speci men Type: BLOOD SPECIMENOrdering Facility: [facility] Address: [address] [place] [address] Performed By: #### 5 7021-8 ####[facility] LABORATORYCLIA [id number] [address] [place] Eosinophils (Bld) [#/Vol] 0.03 10*3/uL Normal <0.46 [facility] Comment on above: Order Comment: Speci men Type: BLOOD SPECIMENOrdering Facility: [facility] Address: [address] [place] [address] Performed By: #### 5 7021-8 ####[facility] LABORATORYCLIA [id number] [address] Eosinophils/100 WBC (Bld) 0.3 % Normal [facility] Comment on above: Order Comment: Speci men Type: BLOOD SPECIMENOrdering Facility: [facility] Address: [address] [address] Performed By: #### 5 7021-8 ####[facility] LABORATORYCLIA [id number] [address] Erythrocyte distribution width (RBC) [Ratio] 17.0 % High 11.5-15.0 [facility] Comment on above: Order Comment: Speci men Type: BLOOD SPECIMENOrdering Facility: [facility] Address: [address] [place] [address] Performed By: #### 5 7021-8 ####[facility] LABORATORYCLIA [id number] [address] Hematocrit (Bld) [Volume fraction] 30.5 % Low 39.0-51.0 [facility] Comment on above: Order Comment: Speci men Type: BLOOD SPECIMENOrdering Facility: [facility] Address: [address] [place] [address] Performed By: #### 5 7021-8 ####[facility] LABORATORYCLIA [id number] [address] Hemoglobin (Bld) [Mass/Vol] 9.0 g/dL Low 13.0-17.0 [facility] Comment on above: Order Comment: Speci men Type: BLOOD SPECIMENOrdering Facility: [facility] Address: [address] [place] [address] Performed By: #### 5 7021-8 ####[facility] LABORATORYCLIA [id number] [address] IMMATURE GRAN % 0.5 % Normal [facility] Comment on above: Order Comment: Speci men Type: BLOOD SPECIMENOrdering Facility: [facility] Address: [address] [place] [address] Performed By: #### 5 7021-8 ####[facility]ORATORYCLIA [id number] [address] IMMATURE GRAN ABS 0.05 k/uL Normal <0.10 [facility] Comment on above: Order Comment: Speci men Type: BLOOD SPECIMENOrdering Facility: [facility] Address: [address] [place] [address] Performed By: #### 5 7021-8 ####[facility] LABORATORYCLIA [id number] [address] OF [facility] Lymphocytes (Bld) [#/Vol] 1.68 10*3/uL Normal 1.00-4.00 [facility] Comment on above: Order Comment: Speci men Type: BLOOD SPECIMENOrdering Facility: [facility] Address: [address] [place] [address] Performed By: #### 5 7021-8 ####[facility]ORATORYCLIA [id number] [address] Lymphocytes/100 WBC (Bld) 16.2 % Normal [facility] Comment on above: Order Comment: Speci men Type: BLOOD SPECIMENOrdering Facility: [facility] Address: [address] [place] [address] Performed By: #### 5 7021-8 ####[facility]ORATORYCLIA [id number] [address] [place] MCH (RBC) [Entitic mass] 27.4 pg Normal 26.0-34.0 [facility] Comment on above: Order Comment: Speci men Type: BLOOD SPECIMENOrdering Facility: [facility] Address: [address] [place] [address] Performed By: #### 5 7021-8 ####[facility] LABORATORYCLIA [id number] [address] [place] MCHC (RBC) [Mass/Vol] 29.5 g/dL Low 30.5-36.0 [facility] Comment on above: Order Comment: Speci men Type: BLOOD SPECIMENOrdering Facility: [facility] Address: [address] [place] [address] Performed By: #### 5 7021-8 ####[facility]ORATORYCLIA [id number] [address] [place] MCV (RBC) [Entitic vol] 93.0 fL Normal 80.0-100.0 [facility] Comment on above: Order Comment: Speci men Type: BLOOD SPECIMENOrdering Facility: [facility] Address: [address] [place] [address] Performed By: #### 5 7021-8 ####[facility]ORATORYCLIA [id number] [place] [address] [place] Monocytes (Bld) [#/Vol] 0.63 10*3/uL Normal <0.87 [facility] Comment on above: Order Comment: Speci men Type: BLOOD SPECIMENOrdering Facility: [facility] Address: [address] [place] [address] Performed By: #### 5 7021-8 ####[facility]ORATORYCLIA [id number] [address] Monocytes/100 WBC (Bld) 6.1 % Normal [facility] Comment on above: Order Comment: Speci men Type: BLOOD SPECIMENOrdering Facility: [facility] Address: [address] [place] [address] Performed By: #### 5 7021-8 ####[facility] LABORATORYCLIA [id number] [address] [place] Neutrophils (Bld) [#/Vol] 7.91 10*3/uL High 1.45-7.50 [facility] Comment on above: Order Comment: Speci men Type: BLOOD SPECIMENOrdering Facility: [facility] Address: [address] [place] [address] Performed By: #### 5 7021-8 ####[facility] LABORATORYCLIA [id number] [address] [place] Neutrophils/100 WBC (Bld) 76.3 % Normal [facility] Comment on above: Order Comment: Speci men Type: BLOOD SPECIMENOrdering Facility: [facility] Address: [address] [place] [address] Performed By: #### 5 7021-8 ####[facility] LABORATORYCLIA [id number] [address] [place] Nucleated RBC (Bld) [#/Vol] 10*3/uL Normal <0.01 [facility] Comment on above: Order Comment: Speci men Type: BLOOD SPECIMENOrdering Facility: [facility] Address: [address] [place] [address] Performed By: #### 5 7021-8 ####[facility] LABORATORYCLIA [id number] [address] [place] Nucleated RBC/100 WBC (Bld) [Ratio] 0.0 /100 WBC Normal [facility] Comment on above: Order Comment: Speci men Type: BLOOD SPECIMENOrdering Facility: [facility] Address: [address] [place] [address] Performed By: #### 5 7021-8 ####[facility] LABORATORYCLIA [id number] [address] Platelet mean volume (Bld) [Entitic vol] 11.1 fL Normal 9.0-12.7 [facility] Comment on above: Order Comment: Speci men Type: BLOOD SPECIMENOrdering Facility: [facility] Address: [address] [place] [address] Performed By: #### 5 7021-8 ####[facility] LABORATORYCLIA [id number] [address] [place] Platelets (Bld) [#/Vol] 285 10*3/uL Normal 150-400 [facility] Comment on above: Order Comment: Speci men Type: BLOOD SPECIMENOrdering Facility: [facility] Address: [address] [place] [address] Performed By: #### 5 7021-8 ####[facility] LABORATORYCLIA [id number] [address] [place] RBC (Bld) [#/Vol] 3.28 10*6/uL Low 4.20-6.00 [facility] Comment on above: Order Comment: Speci men Type: BLOOD SPECIMENOrdering Facility: [facility] Address: [address] [place] [address] Performed By: #### 5 7021-8 ####[facility] LABORATORYCLIA [id number] [place] [address] [place] WBC (Bld) [#/Vol] 10.36 10*3/uL Normal 3.70-11.00 [facility] Comment on above: Order Comment: Speci men Type: BLOOD SPECIMENOrdering Facility: [facility] Address: [address] [place] [address] Performed By: #### 5 7021-8 ####[facility] LABORATORYCLIA [id number] [address] [place] Legionella Ag Ur Qlon 2021 Legionella sp Ag Ql (U) Negative Normal Negative [facility] Comment on above: Order Comment: Speci men Type: URINE SPECIMENOrdering Facility: [facility] Address: [address] [place] [address] Performed By: #### 3 2781-7 ####[facility] LABORATORYCLIA [id number] [place] [address] [place] Magnesium SerPl-mCncon 07-24 Magnesium [Mass/Vol] 2.3 mg/dL Normal 1.7-2.3 [facility] Comment on above: Order Comment: Speci men Type: BLOOD SPECIMENOrdering Facility: [facility] Address: [address] [place] [address] Performed By: #### 1 9123-9, PROCAL, 2777-1, 81982-8 ####[facility] LABORATORYCLIA [id number] [address] [place] NURSING PROGon 07-24-2021 NURSING PROG Normal [facility] PROCALCITONIN (LAB)on 2021 Procalcitonin [Mass/Vol] 0.15 ng/mL High <0.09 [facility] Comment on above: Order Comment: Speci men Type: BLOOD SPECIMENOrdering Facility: [facility] Address: [address] [place] [address] Result Comment: For a guided interpretation of test results, please visit the Change in Procalcitonin Calculator, [email or web address]. Performed By: #### 1 9123-9, PROCCARLITOS, 2777-1, 91306-0 ####[facility] LABORATORYCLIA [id number] [address] [place] Phosphate SerPl-mCncon 07-24 Phosphate [Mass/Vol] 3.9 mg/dL Normal 2.7-4.8 [facility] Comment on above: Order Comment: Speci men Type: BLOOD SPECIMENOrdering Facility: [facility] Address: [address] [place] [address] Performed By: #### 1 9123-9, PROCAL, 2777-1, 67601-6 ####[facility] LABORATORYCLIA [id number] [address] [place] STREPTOCOCCUS PNEUMONIAE AGo n 07-24-2021 STREPTOCOCCUS PNEUMONIAE AG Normal [facility] Comment on above: Performed By: #### S PNAG ####[facility] LABORATORYCLIA [id number] [address] [place] aPTT PPPon 07-24-2021 aPTT Coag (PPP) [Time] 60.8 s High 23.0-32.4 [facility] Comment on above: Order Comment: Speci men Type: BLOOD SPECIMENOrdering Facility: [facility] Address: [address] [place] [address] Performed By: #### 1 4979-9 ####[facility] LABORATORYCLIA [id number] [address] [place] aPTT Coag (PPP) [Time] 38.2 s High 23.0-32.4 [facility] Comment on above: Order Comment: Speci men Type: BLOOD SPECIMENOrdering Facility: [facility] Address: [address] [address] Performed By: #### 1 4979-9 ####[facility] LABORATORYCLIA [id number] [address] aPTT Coag (PPP) [Time] 35.9 s High 23.0-32.4 [facility] Comment on above: Order Comment: Speci men Type: BLOOD SPECIMENOrdering Facility: [facility] Address: [address] [place] [address] Performed By: #### 1 4979-9 ####[facility] LABORATORYCLIA [id number] [address] aPTT Coag (PPP) [Time] 28.8 s Normal 23.0-32.4 [facility] Comment on above: Order Comment: Speci men Type: BLOOD SPECIMENOrdering Facility: [facility] Address: [address] [place] [address] Performed By: #### 1 4979-9 ####[facility] LABORATORYCLIA [id number] [address] [place] ALLIED HEALTHon 07-23-2021 ALLIED HEALTH Normal [facility] ALLIED HEALTH Normal [facility] ALLIED HEALTH Normal [facility] ARTERIAL BLOOD GASESon 07-23 Base excess Calc (Bld) [Moles/Vol] 4 mmol/L High 0-2 [facility] Comment on above: Order Comment: Speci men Type: ARTERIAL BLOOD SPECIMENOrdering Facility: [facility] Address: [address] [address] Performed By: #### A LLBG ####[facility] LABORATORYCLIA [id number] 20 [address] Body temperature 100.58 [degF] Normal [facility] Comment on above: Order Comment: Speci men Type: ARTERIAL BLOOD SPECIMENOrdering Facility: [facility] Address: [address] [place] [address] Performed By: #### A LLBG ####[facility] LABORATORYCLIA [id number] [address] STATES OF [facility] CALCIUM IONIZED, PH CORRECTED 1.26 mmol/L Normal 1.08-1.30 [facility] Comment on above: Order Comment: Speci men Type: ARTERIAL BLOOD SPECIMENOrdering Facility: [facility] Address: [address] [place] [address] Performed By: #### A LLBG ####[facility] LABORATORYCLIA [id number] [place] [address] [place] Calcium.ionized (BldV) [Mass/Vol] 1.25 mmol/L Normal 1.08-1.30 [facility] Comment on above: Order Comment: Speci men Type: ARTERIAL BLOOD SPECIMENOrdering Facility: [facility] Address: [address] [place] [address] Performed By: #### A LLBG ####[facility] LABORATORYCLIA [id number] [address] Carboxyhemoglobin (BldA) [Mass fraction] 1.2 % Normal 0.0-2.0 [facility] Comment on above: Order Comment: Speci men Type: ARTERIAL BLOOD SPECIMENOrdering Facility: [facility] Address: [address] [place] [address] Result Comment: Carb oxyhemoglobin Reference Range for Smokers: 2.0-8.0% Performed By: #### A LLBG ####[facility] LABORATORYCLIA [id number] [place] [address] [place] CO2 (Bld) [Partial pressure] 46 mm Hg Normal 36-46 [facility] Comment on above: Order Comment: Speci men Type: ARTERIAL BLOOD SPECIMENOrdering Facility: [facility] Address: [address] [place] [address] Performed By: #### A LLBG ####[facility] LABORATORYCLIA [id number] [address] STATES [place] CO2 [Moles/Vol] 27 mmol/L Normal 22-28 [facility] Comment on above: Order Comment: Speci men Type: ARTERIAL BLOOD SPECIMENOrdering Facility: [facility] Address: [address] [place] [address] Performed By: #### A LLBG ####[facility]ORATORYCLIA [id number] [address] CO2 adjusted to patient's actual temperature (Bld) [Partial pressure] 48 mmHg High 36-46 [facility] Comment on above: Order Comment: Speci men Type: ARTERIAL BLOOD SPECIMENOrdering Facility: [facility] Address: [address] [place] [address] Performed By: #### A LLBG ####[facility] LABORATORYCLIA [id number] [address] STATES [place] Glucose [Mass/Vol] 134 mg/dL High 60-105 [facility] Comment on above: Order Comment: Speci men Type: ARTERIAL BLOOD SPECIMENOrdering Facility: [facility] Address: [address] [place] [address] Performed By: #### A LLBG ####[facility] LABORATORYCLIA [id number] [address] [place] HCO3 (Bld) [Moles/Vol] 29 mmol/L High 22-26 [facility] Comment on above: Order Comment: Speci men Type: ARTERIAL BLOOD SPECIMENOrdering Facility: [facility] Address: [address] [place] [address] Performed By: #### A LLBG ####[facility] LABORATORYCLIA [id number] [address] Hematocrit (Bld) [Volume fraction] 31.4 % Low 39.0-51.0 [facility] Comment on above: Order Comment: Speci men Type: ARTERIAL BLOOD SPECIMENOrdering Facility: [facility] Address: [address] [place] [address] Performed By: #### A LLBG ####[facility] LABORATORYCLIA [id number] [address] [place] Hemoglobin (Bld) [Mass/Vol] 10.2 g/dL Low 13.0-17.0 [facility] Comment on above: Order Comment: Speci men Type: ARTERIAL BLOOD SPECIMENOrdering Facility: [facility] Address: [facility] [place] [address] Performed By: #### A LLBG ####[facility]ORATORYCLIA [id number] [address] Methemoglobin (Bld) [Mass fraction] % Normal 0.0-1.5 [facility] Comment on above: Order Comment: Speci men Type: ARTERIAL BLOOD SPECIMENOrdering Facility: [facility] Address: [address] [place] [address] Performed By: #### A LLBG ####[facility] LABORATORYCLIA [id number] [address] O2 THERAPY Ventilator Normal [facility] Comment on above: Order Comment: Speci men Type: ARTERIAL BLOOD SPECIMENOrdering Facility: [facility] Address: [address] [place] [address] Performed By: #### A LLBG ####[facility]ORATORYCLIA [id number] [address] Oxygen (Bld) [Partial pressure] 113 mm Hg High 85-95 [facility] Comment on above: Order Comment: Speci men Type: ARTERIAL BLOOD SPECIMENOrdering Facility: [facility] Address: [address] [place] [address] Performed By: #### A LLBG ####[facility]ORATORYCLIA [id number] [address] Oxygen adjusted to patient's actual temperature (Bld) [Partial pressure] 119 mmHg High 85-95 [facility] Comment on above: Order Comment: Speci men Type: ARTERIAL BLOOD SPECIMENOrdering Facility: [facility] Address: [address] [place] [address] Performed By: #### A LLBG ####[facility]ORATORYCLIA [id number] [place] [address] OXYGEN SATURATION, ARTERIAL 98 % Normal 95-98 [facility] Comment on above: Order Comment: Speci men Type: ARTERIAL BLOOD SPECIMENOrdering Facility: [facility] Address: [address] [place] [address] Performed By: #### A LLBG ####[facility] LABORATORYCLIA [id number] [address] [place] Oxyhemoglobin (BldA) [Mass fraction] 96 % Normal 95-98 [facility] Comment on above: Order Comment: Speci men Type: ARTERIAL BLOOD SPECIMENOrdering Facility: [facility] Address: [address] [place] [address] Performed By: #### A LLBG ####[facility]ORATORYCLIA [id number] [address] [place] pH (Bld) 7.41 [pH] Normal 7.35-7.45 [facility] Comment on above: Order Comment: Speci men Type: ARTERIAL BLOOD SPECIMENOrdering Facility: [facility] Address: [address] [place] [address] Performed By: #### A LLBG ####[facility]ORATORYCLIA [id number] [address] pH adjusted to patient's actual temperature (Bld) 7.40 Normal 7.35-7.45 [facility] Comment on above: Order Comment: Speci men Type: ARTERIAL BLOOD SPECIMENOrdering Facility: [facility] Address: [address] [place] [address] Performed By: #### A LLBG ####[facility] LABORATORYCLIA [id number] [address] [place] Potassium [Moles/Vol] 4.3 mmol/L Normal 3.5-5.0 [facility] Comment on above: Order Comment: Speci men Type: ARTERIAL BLOOD SPECIMENOrdering Facility: [facility] Address: [address] [place] [address] Performed By: #### A LLBG ####[facility]ORATORYCLIA [id number] [address] [place] Sodium [Moles/Vol] 144 mmol/L Normal 136-144 [facility] Comment on above: Order Comment: Speci men Type: ARTERIAL BLOOD SPECIMENOrdering Facility: [facility] Address: [address] [place] [address] Performed By: #### A LLBG ####[facility]ORATORYCLIA [id number] [address] Bacteria CSF Culton 07-24-19 22 Bacteria identified Cx Nom (CSF) Abnormal [facility] Comment on above: Performed By: #### 6 06-4 ####[facility]ORATORYCLIA [id number] [address] [place] Basic metabolic 2000 panelon 07-23-2021 Anion gap [Moles/Vol] 12 mmol/L Normal 9-18 [facility] Comment on above: Order Comment: Speci men Type: BLOOD SPECIMENOrdering Facility: [facility] Address: [address] [place] [address] Performed By: #### 2 4321-2 ####[facility]ORATORYCLIA [id number] [address] [place] Calcium [Mass/Vol] 9.7 mg/dL Normal 8.5-10.2 [facility] Comment on above: Order Comment: Speci men Type: BLOOD SPECIMENOrdering Facility: [facility] Address: [address] [place] [address] Performed By: #### 2 4321-2 ####[facility]ORATORYCLIA [id number] [address] [place] Chloride [Moles/Vol] 105 mmol/L Normal 97-105 [facility] Comment on above: Order Comment: Speci men Type: BLOOD SPECIMENOrdering Facility: [facility] Address: [address] [place] [address] Performed By: #### 2 4321-2 ####[facility] LABORATORYCLIA [id number] [address] STATES OF [facility] CO2 [Moles/Vol] 28 mmol/L Normal 22-30 [facility] Comment on above: Order Comment: Speci men Type: BLOOD SPECIMENOrdering Facility: [facility] Address: [address] [place] [address] Performed By: #### 2 4321-2 ####[facility]ORATORYCLIA [id number] [address] STATES OF [facility] Creatinine [Mass/Vol] 0.78 mg/dL Normal 0.73-1.22 [facility] Comment on above: Order Comment: Speci men Type: BLOOD SPECIMENOrdering Facility: [facility] Address: [address] [place] [address] Performed By: #### 2 4321-2 ####[facility] [id number] [address] ESTIMATED GLOMERULAR FILTRATION RATE 97 mL/min/1.73m??? Normal >=60 [facility] Comment on above: Order Comment: Speci men Type: BLOOD SPECIMENOrdering Facility: [facility] Address: [address] [place] [address] Result Comment: Luzmaria mated Glomerular Filtration Rate [...] 2 4321-2 ####[facility]ORATORYCLIA [id number] [address] STATES OF [facility] Glucose [Mass/Vol] 127 mg/dL High 74-99 [facility] Comment on above: Order Comment: Speci men Type: BLOOD SPECIMENOrdering Facility: [facility] Address: [address] [place] [address] Result Comment: The [place] (ADA) [...] 2 4321-2 ####[facility]ORATORYCLIA [id number] [address] STATES OF [facility] Potassium [Moles/Vol] 4.3 mmol/L Normal 3.7-5.1 [facility] Comment on above: Order Comment: Shira feldman Type: BLOOD SPECIMENOrdering Facility: [facility] Address: [address] [place] [address] Performed By: #### 2 4321-2 ####[facility]ORATORYCLIA [id number] [address] STATES [facility] Sodium [Moles/Vol] 145 mmol/L High 136-144 [facility] Comment on above: Order Comment: Shira feldman Type: BLOOD SPECIMENOrdering Facility: [facility] Address: [address] [place] [address] Performed By: #### 2 4321-2 ####[facility]ORATORYCLIA [id number] [address] STATES [facility] Urea nitrogen [Mass/Vol] 37 mg/dL High 9-24 [facility] Comment on above: Order Comment: Shira feldman Type: BLOOD SPECIMENOrdering Facility: [facility] Address: [address] [place] [address] Performed By: #### 2 4321-2 ####[facility] LABORATORYCLIA [id number] [place] [address] [place] C diff Tox gens Stl Ql MEGAN+p robeon 07-23-2021 C. difficile toxin genes MEGAN+probe Ql (Stl) Negative Normal Negative for C. difficile toxin by PCR [facility] Comment on above: Order Comment: Speci men Type: STOOL SPECIMENOrdering Facility: [facility] Address: [address] [place] [address] Performed By: #### 5 4067-4 ####[facility]ORATORYCLIA [id number] [address] STATES OF [facility] CBC W Auto Differential pane l (Bld)on 07-23-2021 Basophils (Bld) [#/Vol] 0.07 10*3/uL Normal <0.11 [facility] Comment on above: Order Comment: Speci men Type: BLOOD SPECIMENOrdering Facility: [facility] Address: [address] [place] [address] Performed By: #### 5 7021-8 ####[facility]ORATORYCLIA [id number] [address] STATES OF [facility] Basophils/100 WBC (Bld) 0.5 % Normal [facility] Comment on above: Order Comment: Speci men Type: BLOOD SPECIMENOrdering Facility: [facility] Address: [address] [place] [address] Performed By: #### 5 7021-8 ####[facility]ORATORYCLIA [id number] [address] Differential cell count method Nom (Bld) Auto Normal [facility] Comment on above: Order Comment: Speci men Type: BLOOD SPECIMENOrdering Facility: [facility] Address: [address] [place] [address] Performed By: #### 5 7021-8 ####[facility] LABORATORYCLIA [id number] [place] [address] [place] Eosinophils (Bld) [#/Vol] 10*3/uL Normal <0.46 [facility] Comment on above: Order Comment: Speci men Type: BLOOD SPECIMENOrdering Facility: [facility] Address: [address] [place] [address] Performed By: #### 5 7021-8 ####[facility]ORATORYCLIA [id number] [address] Eosinophils/100 WBC (Bld) 0.2 % Normal [facility] Comment on above: Order Comment: Speci men Type: BLOOD SPECIMENOrdering Facility: [facility] Address: [address] [place] [address] Performed By: #### 5 7021-8 ####[facility]ORATORYCLIA [id number] [address] [place] Erythrocyte distribution width (RBC) [Ratio] 16.7 % High 11.5-15.0 [facility] Comment on above: Order Comment: Speci men Type: BLOOD SPECIMENOrdering Facility: [facility] Address: [address] [place] [address] Performed By: #### 5 7021-8 ####[facility]ORATORYCLIA [id number] [address] Hematocrit (Bld) [Volume fraction] 32.8 % Low 39.0-51.0 [facility] Comment on above: Order Comment: Speci men Type: BLOOD SPECIMENOrdering Facility: [facility] Address: [address] [place] [address] Performed By: #### 5 7021-8 ####[facility]ORATORYCLIA [id number] [address] [place] Hemoglobin (Bld) [Mass/Vol] 9.7 g/dL Low 13.0-17.0 [facility] Comment on above: Order Comment: Speci men Type: BLOOD SPECIMENOrdering Facility: [facility] Address: [address] [place] [address] Performed By: #### 5 7021-8 ####[facility]ORATORYCLIA [id number] [address] [place] IMMATURE GRAN % 0.7 % Normal [facility] Comment on above: Order Comment: Speci men Type: BLOOD SPECIMENOrdering Facility: [facility] Address: [address] [place] [address] Performed By: #### 5 7021-8 ####[facility]ORATORYCLIA [id number] [address] IMMATURE GRAN ABS 0.09 k/uL Normal <0.10 [facility] Comment on above: Order Comment: Speci men Type: BLOOD SPECIMENOrdering Facility: [facility] Address: [address] [place] [address] Performed By: #### 5 7021-8 ####[facility]ORATORYCLIA [id number] [address] Lymphocytes (Bld) [#/Vol] 1.94 10*3/uL Normal 1.00-4.00 [facility] Comment on above: Order Comment: Speci men Type: BLOOD SPECIMENOrdering Facility: [facility] Address: [address] [place] [address] Performed By: #### 5 7021-8 ####[facility]ORATORYCLIA [id number] [address] Lymphocytes/100 WBC (Bld) 14.6 % Normal [facility] Comment on above: Order Comment: Speci men Type: BLOOD SPECIMENOrdering Facility: [facility] Address: [address] [place] [address] Performed By: #### 5 7021-8 ####[facility]ORATORYCLIA [id number] [address] MCH (RBC) [Entitic mass] 27.2 pg Normal 26.0-34.0 [facility] Comment on above: Order Comment: Speci men Type: BLOOD SPECIMENOrdering Facility: [facility] Address: [address] [place] [address] Performed By: #### 5 7021-8 ####[facility] LABORATORYCLIA [id number] [place] [address] [place] MCHC (RBC) [Mass/Vol] 29.6 g/dL Low 30.5-36.0 [facility] Comment on above: Order Comment: Speci men Type: BLOOD SPECIMENOrdering Facility: [facility] Address: [address] [place] [address] Performed By: #### 5 7021-8 ####[facility]ORATORYCLIA [id number] [place] [address] [place] MCV (RBC) [Entitic vol] 92.1 fL Normal 80.0-100.0 [facility] Comment on above: Order Comment: Speci men Type: BLOOD SPECIMENOrdering Facility: [facility] Address: [address] [place] [address] Performed By: #### 5 7021-8 ####[facility]ORATORYCLIA [id number] [address] [place] Monocytes (Bld) [#/Vol] 0.74 10*3/uL Normal <0.87 [facility] Comment on above: Order Comment: Speci men Type: BLOOD SPECIMENOrdering Facility: [facility] Address: [address] [place] [address] Performed By: #### 5 7021-8 ####[facility]ORATORYCLIA [id number] [address] Monocytes/100 WBC (Bld) 5.6 % Normal [facility] Comment on above: Order Comment: Speci men Type: BLOOD SPECIMENOrdering Facility: [facility] Address: [address] [place] [address] Performed By: #### 5 7021-8 ####[facility]ORATORYCLIA [id number] [address] [place] Neutrophils (Bld) [#/Vol] 10.43 10*3/uL High 1.45-7.50 [facility] Comment on above: Order Comment: Speci men Type: BLOOD SPECIMENOrdering Facility: [facility] Address: [address] [place] [address] Performed By: #### 5 7021-8 ####[facility]ORATORYCLIA [id number] [address] Neutrophils/100 WBC (Bld) 78.4 % Normal [facility] Comment on above: Order Comment: Speci men Type: BLOOD SPECIMENOrdering Facility: [facility] Address: [address] [place] [address] Performed By: #### 5 7021-8 ####[facility]ORATORYCLIA [id number] [address] [place] Nucleated RBC (Bld) [#/Vol] 10*3/uL Normal <0.01 [facility] Comment on above: Order Comment: Speci men Type: BLOOD SPECIMENOrdering Facility: [facility] Address: [address] [place] [address] Performed By: #### 5 7021-8 ####[facility]ORATORYCLIA [id number] [address] Nucleated RBC/100 WBC (Bld) [Ratio] 0.0 /100 WBC Normal [facility] Comment on above: Order Comment: Speci men Type: BLOOD SPECIMENOrdering Facility: [facility] Address: [address] [place] [address] Performed By: #### 5 7021-8 ####[facility] LABORATORYCLIA [id number] [address] [place] Platelet mean volume (Bld) [Entitic vol] 11.0 fL Normal 9.0-12.7 [facility] Comment on above: Order Comment: Speci men Type: BLOOD SPECIMENOrdering Facility: [facility] Address: [address] [place] [address] Performed By: #### 5 7021-8 ####[facility]ORATORYCLIA [id number] [address] [place] Platelets (Bld) [#/Vol] 381 10*3/uL Normal 150-400 [facility] Comment on above: Order Comment: Speci men Type: BLOOD SPECIMENOrdering Facility: [facility] Address: [address] [place] [address] Performed By: #### 5 7021-8 ####[facility] LABORATORYCLIA [id number] [address] OF [facility] RBC (Bld) [#/Vol] 3.56 10*6/uL Low 4.20-6.00 [facility] Comment on above: Order Comment: Speci men Type: BLOOD SPECIMENOrdering Facility: [facility] Address: [address] [place] [address] Performed By: #### 5 7021-8 ####[facility] LABORATORYCLIA [id number] [address] OF [facility] WBC (Bld) [#/Vol] 13.29 10*3/uL High 3.70-11.00 [facility] Comment on above: Order Comment: Speci men Type: BLOOD SPECIMENOrdering Facility: [facility] Address: [address] [place] [address] Performed By: #### 5 7021-8 ####[facility]ORATORYCLIA [id number] [address] CONSULT PROGon 07-23-2021 CONSULT PROG Normal [facility] CONSULT PROG Normal [facility] CSF MANUAL DIFFon 07-23-2021 DIF TTL, CSF 100 cells counted Normal [facility] Comment on above: Order Comment: Speci men Type: CEREBROSPINAL FLUIDOrdering Facility: [facility] Address: [address] [place] [address] Performed By: #### L [id number], [id number], 38699-0 ####[facility]ORATORYCLIA [id number] [address] [place] LYMPH%, CSF 2 % Low 50-90 [facility] Comment on above: Order Comment: Speci men Type: CEREBROSPINAL FLUIDOrdering Facility: [facility] Address: [address] [place] [address] Performed By: #### L [id number], [id number], 16003-3 ####[facility]ORATORYCLIA [id number] [place] [address] [place] MONO%, CSF 9 % Low 10-50 [facility] Comment on above: Order Comment: Speci men Type: CEREBROSPINAL FLUIDOrdering Facility: [facility] Address: [address] [place] [address] Performed By: #### L [id number], [id number], 34322-1 ####[facility]ORATORYCLIA [id number] [place] [address] [place] NEUT%, CSF 89 % High 0-3 [facility] Comment on above: Order Comment: Speci men Type: CEREBROSPINAL FLUIDOrdering Facility: [facility] Address: [address] [place] [address] Performed By: #### L [id number], [id number], 08491-4 ####[facility]ORATORYCLIA [id number] [address] CSF PATHOLOGIST INTERP (LAB REFLEX ORDER-NO BILL)on 07-23-2021 CSF STAFF REVIEW Negative for maligna nt cells. Numerous bacterial organisms present, cocci in pairs and chains. Recommend correlation with CSF culture results. Normal [facility] Comment on above: Order Comment: Speci men Type: CEREBROSPINAL FLUIDOrdering Facility: [facility] Address: [address] [place] [address] Performed By: #### L [id number], [id number], 73238-1 ####[facility]ORATORYCLIA [id number] [address] Pathologist name Reviewed by Amador Stevens MD [facility] Comment on above: Order Comment: Speci men Type: CEREBROSPINAL FLUIDOrdering Facility: [facility] Address: [address] [place] [address] Performed By: #### L [id number], [id number], 20668-3 ####[facility] LABORATORYCLIA [id number] [address] BRAIN WO IVCONon 07-24-19 CT BRAIN WO IVCON Normal [facility] Cell count panel (CSF)on Clarity (CSF) Clear Normal Clear [facility] Comment on above: Order Comment: Speci men Type: CEREBROSPINAL FLUIDOrdering Facility: [facility] Address: [address] [place] [address] Performed By: #### L [id number], [id number], 88557-9 ####[facility]ORATORYCLIA [id number] [address] Clarity (Unsp spec) Not Indicated Normal Clear [facility] Comment on above: Order Comment: Speci men Type: CEREBROSPINAL FLUIDOrdering Facility: [facility] Address: [address] [place] [address] Performed By: #### L [id number], [id number], 07535-1 ####[facility] LABORATORYCLIA [id number] [address] Color (CSF) Colorless Normal Colorless [facility] Comment on above: Order Comment: Speci men Type: CEREBROSPINAL FLUIDOrdering Facility: [facility] Address: [address] [place] [address] Performed By: #### L [id number], [id number] ####[facility] LABORATORYCLIA [id number] [address] Color (Spun CSF) Not Indicated Normal Colorless [facility] Comment on above: Order Comment: Speci men Type: CEREBROSPINAL FLUIDOrdering Facility: [facility] Address: [address] [place] [address] Performed By: #### L [id number], [id number], [id number] ####[facility] LABORATORYCLIA [id number] [address] CSF TUBE [employer]BER [employer] Normal [facility] Comment on above: Order Comment: Speci men Type: CEREBROSPINAL FLUIDOrdering Facility[facility] Address: [address] [place], [place] [id number] Performed By: #### L [id number], [id number], 13855-4 ####[facility] LABORATORYCLIA [id number] [address] RBC Manual cnt (CSF) [#/Vol] 7 cells/uL High 0-5 [facility] Comment on above: Order Comment: Speci men Type: CEREBROSPINAL FLUIDOrdering Facility: [facility] Address: [address] [place] [address] Performed By: #### L [id number], [id number], 49277-7 ####[facility]ORATORYCLIA [id number] [address] WBC Manual cnt (CSF) [#/Vol] 193 cells/uL High 0-5 [facility] Comment on above: Order Comment: Speci men Type: CEREBROSPINAL FLUIDOrdering Facility: [facility] Address: [address] [place] [address] Performed By: #### L [id number], [id number], 82504-9 ####[facility] LABORATORYCLIA [id number] [address] [place] Glucose CSF-ncon 2 Glucose (CSF) [Mass/Vol] 81 mg/dL High 40-70 [facility] Comment on above: Order Comment: Speci men Type: CEREBROSPINAL FLUIDOrdering Facility: [facility] Address: [address] [place] [address] Result Comment: Lumb ar CSF glucose values of healthy patients are approximately 60% of the plasma values and must always be compared with a concurrently measured plasma value for adequate clinical interpretation.References: 1. Glucose HK (GLUC3) [package insert V 12.0 Syrian]. [employer], [place], [place]. September 2015. 2. Michelle Moore, Loki H. (2015). Chapter 7: Glucose and Lactate. Marianela Rothman.(eds.), Cerebrospinal Fluid in Clinical Neurology. Dickenson: [facility] ([facility]). Performed By: #### 2 342-4, 2880-3 ####[facility]ORATORYCLIA [id number] [address] [place] NURSING PROGon 07-23-2021 NURSING PROG Normal [facility] NURSING PROG Normal [facility] Prot CSF-mCncon 07-23-2021 Protein (CSF) [Mass/Vol] 68 mg/dL High 15-45 [facility] Comment on above: Order Comment: Speci men Type: CEREBROSPINAL FLUIDOrdering Facility: [facility] Address: [address] [place] [address] Performed By: #### 2 342-4, 2880-3 ####[facility]ORATORYCLIA [id number] [address] Urinalysis complete panel (U )on 07-23-2021 Bilirubin Ql (U) Negative Normal Negative [facility] Comment on above: Order Comment: Speci men Type: URINE SPECIMENOrdering Facility: [facility] Address: [address] [place] [address] Performed By: #### 2 4356-8 ####[facility] LABORATORYCLIA [id number] [address] [place] Clarity (Unsp spec) Clear Normal Clear [facility] Comment on above: Order Comment: Speci men Type: URINE SPECIMENOrdering Facility: [facility] Address: [address] [place] [address] Performed By: #### 2 4356-8 ####[facility]ORATORYCLIA [id number] [address] Color (U) Light Yellow Normal yellow [facility] Comment on above: Order Comment: Speci men Type: URINE SPECIMENOrdering Facility: [facility] Address: [address] [place] [address] Performed By: #### 2 4356-8 ####[facility]ORATORYCLIA [id number] [address] [place] Glucose Test strip (U) [Mass/Vol] Negative Normal Negative [facility] Comment on above: Order Comment: Speci men Type: URINE SPECIMENOrdering Facility: [facility] Address: [address] [place] [address] Performed By: #### 2 4356-8 ####[facility]ORATORYCLIA [id number] [address] Hemoglobin Ql (U) Negative Normal Negative [facility] Comment on above: Order Comment: Speci men Type: URINE SPECIMENOrdering Facility: [facility] Address: [address] [place] [address] Performed By: #### 2 4356-8 ####[facility] LABORATORYCLIA [id number] [address] [place] Ketones Ql (U) Negative Normal Negative [facility] Comment on above: Order Comment: Speci men Type: URINE SPECIMENOrdering Facility: [facility] Address: [address] [place] [address] Performed By: #### 2 4356-8 ####[facility]ORATORYCLIA [id number] [address] [place] Leukocyte esterase Test strip Ql (U) Negative Normal Negative [facility] Comment on above: Order Comment: Speci men Type: URINE SPECIMENOrdering Facility: [facility] Address: [address] [place] [address] Performed By: #### 2 4356-8 ####[facility]ORATORYCLIA [id number] [address] [place] Nitrite Ql (U) Negative Normal Negative [facility] Comment on above: Order Comment: Speci men Type: URINE SPECIMENOrdering Facility: [facility] Address: [address] [place] [address] Performed By: #### 2 4356-8 ####[facility]ORATORYCLIA [id number] [address] [place] pH (U) 6.0 [pH] Normal 5.0-8.0 [facility] Comment on above: Order Comment: Speci men Type: URINE SPECIMENOrdering Facility: [facility] Address: [address] [place] [address] Performed By: #### 2 4356-8 ####[facility]ORATORYCLIA [id number] [address] Protein (U) [Mass/Vol] 1+ Abnormal Negative [facility] Comment on above: Order Comment: Speci men Type: URINE SPECIMENOrdering Facility: [facility] Address: [address] [place] [address] Performed By: #### 2 4356-8 ####[facility]ORATORYCLIA [id number] [address] RBC LM.HPF (Urine sed) [#/Area] 0-3 /HPF Normal 0-3 /HPF [facility] Comment on above: Order Comment: Speci men Type: URINE SPECIMENOrdering Facility: [facility] Address: [address] [place] [address] Performed By: #### 2 4356-8 ####[facility]ORATORYCLIA [id number] [address] Specific gravity (U) [Rel density] 1.018 Normal 1.005-1.030 [facility] Comment on above: Order Comment: Speci men Type: URINE SPECIMENOrdering Facility: [facility] Address: [address] [place] [address] Performed By: #### 2 4356-8 ####[facility]ORATORYCLIA [id number] [address] Urobilinogen Ql (U) Normal Normal Negative [facility] Comment on above: Order Comment: Speci men Type: URINE SPECIMENOrdering Facility: [facility] Address: [address] [place] [address] Performed By: #### 2 4356-8 ####[facility]ORATORYCLIA [id number] [address] [place] WBC LM.HPF (Urine sed) [#/Area] 0-5 /HPF Normal 0-5 /HPF [facility] Comment on above: Order Comment: Speci men Type: URINE SPECIMENOrdering Facility: [facility] Address: [address] [place] [address] Performed By: #### 2 4356-8 ####[facility]ORATORYCLIA [id number] [address] Vancomycin random [Mass/Vol] on 07-23-2021 Vancomycin [Mass/Vol] 12.9 ug/mL Normal 10.0-20.0 [facility] Comment on above: Order Comment: Speci men Type: BLOOD SPECIMENOrdering Facility: [facility] Address: [address] [place] [address] Result Comment: Refe rence ranges and high/low indicator flags are provided as general guidelines only. The treating physician must determine appropriate target levels/dosing based on the specific clinical situation. Performed By: #### 4 091-5 ####[facility]ORATORYCLIA [id number] [address] OF [facility] XR CHEST 1V FRONTALon 2021 XR CHEST 1V FRONTAL Normal [facility] XR CHEST 1V FRONTAL Normal [facility] aPTT PPPon 07-23-2021 aPTT Coag (PPP) [Time] 32.3 s Normal 23.0-32.4 [facility] Comment on above: Order Comment: Speci men Type: BLOOD SPECIMENOrdering Facility: [facility] Address: [address] [address] Performed By: #### 1 4979-9 ####[facility]ORATORYCLIA [id number] [address] aPTT Coag (PPP) [Time] 57.9 s High 23.0-32.4 [facility] Comment on above: Order Comment: Speci men Type: BLOOD SPECIMENOrdering Facility: [facility] Address: [address] [place] [address] Performed By: #### 1 4979-9 ####[facility]ORATORYCLIA [id number] [place] [address] [place] aPTT Coag (PPP) [Time] 46.3 s High 23.0-32.4 [facility] Comment on above: Order Comment: Speci men Type: BLOOD SPECIMENOrdering Facility: [facility] Address: [address] [place] [address] Performed By: #### 1 4979-9 ####[facility]ORATORYCLIA [id number] [place] [address] [place] Basic metabolic 2000 panelon 07-22-2021 Anion gap [Moles/Vol] 8 mmol/L Low 9-18 [facility] Comment on above: Order Comment: Speci men Type: BLOOD SPECIMENOrdering Facility: [facility] Address: [address] [place] [address] Performed By: #### 2 4321-2 ####[facility]ORATORYCLIA [id number] [place] [address] [place] Calcium [Mass/Vol] 9.5 mg/dL Normal 8.5-10.2 [facility] Comment on above: Order Comment: Speci men Type: BLOOD SPECIMENOrdering Facility: [facility] Address: [address] [place] [address] Performed By: #### 2 4321-2 ####[facility]ORATORYCLIA [id number] [address] [place] Chloride [Moles/Vol] 105 mmol/L Normal 97-105 [facility] Comment on above: Order Comment: Speci men Type: BLOOD SPECIMENOrdering Facility: [facility] Address: [address] [place] [address] Performed By: #### 2 4321-2 ####[facility]ORATORYCLIA [id number] [place] [address] [place] CO2 [Moles/Vol] 32 mmol/L High 22-30 [facility] Comment on above: Order Comment: Speci men Type: BLOOD SPECIMENOrdering Facility: [facility] Address: [address] [place] [address] Performed By: #### 2 4321-2 ####[facility]ORATORYCLIA [id number] [address] STATES OF [facility] Creatinine [Mass/Vol] 0.75 mg/dL Normal 0.73-1.22 [facility] Comment on above: Order Comment: Shira feldman Type: BLOOD SPECIMENOrdering Facility: [facility] Address: [address] [place] [address] Performed By: #### 2 4321-2 ####[facility]ORATORYCLIA [id number] [address] ESTIMATED GLOMERULAR FILTRATION RATE 98 mL/min/1.73m??? Normal >=60 [facility] Comment on above: Order Comment: Shira feldman Type: BLOOD SPECIMENOrdering Facility: [facility] Address: [address] [place] [address] Result Comment: Luzmaria mated Glomerular Filtration Rate [...] 2 4321-2 ####[facility]ORATORYCLIA [id number] [address] STATES OF [facility] Glucose [Mass/Vol] 128 mg/dL High 74-99 [facility] Comment on above: Order Comment: Shira francia Type: BLOOD SPECIMENOrdering Facility: [facility] Address: [address] [place] [address] Result Comment: The [place] (ADA) [...] 2 4321-2 ####[facility]ORATORYCLIA [id number] [address] STATES OF [facility] Potassium [Moles/Vol] 3.7 mmol/L Normal 3.7-5.1 [facility] Comment on above: Order Comment: Speci men Type: BLOOD SPECIMENOrdering Facility: [facility] Address: [address] [place] [address] Performed By: #### 2 4321-2 ####[facility]ORATORYCLIA [id number] [address] Sodium [Moles/Vol] 145 mmol/L High 136-144 [facility] Comment on above: Order Comment: Shira feldman Type: BLOOD SPECIMENOrdering Facility: [facility] Address: [address] [place] [address] Performed By: #### 2 4321-2 ####[facility]ORATORYCLIA [id number] [address] Urea nitrogen [Mass/Vol] 39 mg/dL High 9-24 [facility] Comment on above: Order Comment: Shira feldman Type: BLOOD SPECIMENOrdering Facility: [facility] Address: [address] [place] [address] Performed By: #### 2 4321-2 ####[facility]ORATORYCLIA [id number] [address] [place] CASE MANAGEMon 07-22-2021 CASE MANAGEM Normal [facility] CBC W Auto Differential pane l (Bld)on 07-22-2021 Basophils (Bld) [#/Vol] 0.06 10*3/uL Normal <0.11 [facility] Comment on above: Order Comment: Speci men Type: BLOOD SPECIMENOrdering Facility: [facility] Address: [address] [address] Performed By: #### 5 7021-8 ####[facility]ORATORYCLIA [id number] [address] STATES [facility] Basophils/100 WBC (Bld) 0.5 % Normal [facility] Comment on above: Order Comment: Speci men Type: BLOOD SPECIMENOrdering Facility: [facility] Address: [address] [place] [address] Performed By: #### 5 7021-8 ####[facility]ORATORYCLIA [id number] [address] Differential cell count method Nom (Bld) Auto Normal [facility] Comment on above: Order Comment: Speci men Type: BLOOD SPECIMENOrdering Facility: [facility] Address: [address] [place] [address] Performed By: #### 5 7021-8 ####[facility]ORATORYCLIA [id number] [address] [place] Eosinophils (Bld) [#/Vol] 0.44 10*3/uL Normal <0.46 [facility] Comment on above: Order Comment: Speci men Type: BLOOD SPECIMENOrdering Facility: [facility] Address: [address] [place] [address] Performed By: #### 5 7021-8 ####[facility]ORATORYCLIA [id number] [address] Eosinophils/100 WBC (Bld) 3.9 % Normal [facility] Comment on above: Order Comment: Speci men Type: BLOOD SPECIMENOrdering Facility: [facility] Address: [address] [place] [address] Performed By: #### 5 7021-8 ####[facility]ORATORYCLIA [id number] [address] [place] Erythrocyte distribution width (RBC) [Ratio] 17.0 % High 11.5-15.0 [facility] Comment on above: Order Comment: Speci men Type: BLOOD SPECIMENOrdering Facility: [facility] Address: [address] [place] [address] Performed By: #### 5 7021-8 ####[facility]ORATORYCLIA [id number] [address] Hematocrit (Bld) [Volume fraction] 32.0 % Low 39.0-51.0 [facility] Comment on above: Order Comment: Speci men Type: BLOOD SPECIMENOrdering Facility: [facility] Address: [address] [place] [address] Performed By: #### 5 7021-8 ####[facility]ORATORYCLIA [id number] [address] Hemoglobin (Bld) [Mass/Vol] 9.3 g/dL Low 13.0-17.0 [facility] Comment on above: Order Comment: Speci men Type: BLOOD SPECIMENOrdering Facility: [facility] Address: [address] [place] [address] Performed By: #### 5 7021-8 ####[facility]ORATORYCLIA [id number] [address] IMMATURE GRAN % 0.5 % Normal [facility] Comment on above: Order Comment: Speci men Type: BLOOD SPECIMENOrdering Facility: [facility] Address: [address] [place] [address] Performed By: #### 5 7021-8 ####[facility]ATORYCLIA [id number] [address] IMMATURE GRAN ABS 0.06 k/uL Normal <0.10 [facility] Comment on above: Order Comment: Speci men Type: BLOOD SPECIMENOrdering Facility: [facility] Address: [address] [place] [address] Performed By: #### 5 7021-8 ####[facility]ATORYCLIA [id number] [address] Lymphocytes (Bld) [#/Vol] 1.83 10*3/uL Normal 1.00-4.00 [facility] Comment on above: Order Comment: Speci men Type: BLOOD SPECIMENOrdering Facility: [facility] Address: [address] [place] [address] Performed By: #### 5 7021-8 ####[facility]ORATORYCLIA [id number] [address] Lymphocytes/100 WBC (Bld) 16.1 % Normal [facility] Comment on above: Order Comment: Speci men Type: BLOOD SPECIMENOrdering Facility: [facility] Address: [address] [place] [address] Performed By: #### 5 7021-8 ####[facility]ORATORYCLIA [id number] [address] STATES OF [facility] MCH (RBC) [Entitic mass] 27.0 pg Normal 26.0-34.0 [facility] Comment on above: Order Comment: Speci men Type: BLOOD SPECIMENOrdering Facility: [facility] Address: [address] [place] [address] Performed By: #### 5 7021-8 ####[facility]ORATORYCLIA [id number] [address] MCHC (RBC) [Mass/Vol] 29.1 g/dL Low 30.5-36.0 [facility] Comment on above: Order Comment: Speci men Type: BLOOD SPECIMENOrdering Facility: [facility] Address: [address] [place] [address] Performed By: #### 5 7021-8 ####[facility]ATORYCLIA [id number] [address] MCV (RBC) [Entitic vol] 92.8 fL Normal 80.0-100.0 [facility] Comment on above: Order Comment: Speci men Type: BLOOD SPECIMENOrdering Facility: [facility] Address: [address] [place] [address] Performed By: #### 5 7021-8 ####[facility]ATORYCLIA [id number] [place] [address] [place] Monocytes (Bld) [#/Vol] 0.87 10*3/uL High <0.87 [facility] Comment on above: Order Comment: Speci men Type: BLOOD SPECIMENOrdering Facility: [facility] Address: [address] [place] [address] Performed By: #### 5 7021-8 ####[facility]ATORYCLIA [id number] [place] [address] [place] Monocytes/100 WBC (Bld) 7.6 % Normal [facility] Comment on above: Order Comment: Speci men Type: BLOOD SPECIMENOrdering Facility: [facility] Address: [address] [place] [address] Performed By: #### 5 7021-8 ####[facility]ORATORYCLIA [id number] [place] [address] [place] Neutrophils (Bld) [#/Vol] 8.12 10*3/uL High 1.45-7.50 [facility] Comment on above: Order Comment: Speci men Type: BLOOD SPECIMENOrdering Facility: [facility] Address: [address] [place] [address] Performed By: #### 5 7021-8 ####[facility]ATORYCLIA [id number] [address] [place] Neutrophils/100 WBC (Bld) 71.4 % Normal [facility] Comment on above: Order Comment: Speci men Type: BLOOD SPECIMENOrdering Facility: [facility] Address: [address] [place] [address] Performed By: #### 5 7021-8 ####[facility]ORATORYCLIA [id number] [place] [address] [place] Nucleated RBC (Bld) [#/Vol] 10*3/uL Normal <0.01 [facility] Comment on above: Order Comment: Speci men Type: BLOOD SPECIMENOrdering Facility: [facility] Address: [address] [address] Performed By: #### 5 7021-8 ####[facility]ATORYCLIA [id number] [address] [place] Nucleated RBC/100 WBC (Bld) [Ratio] 0.0 /100 WBC Normal [facility] Comment on above: Order Comment: Speci men Type: BLOOD SPECIMENOrdering Facility: [facility] Address: [address] [place] [address] Performed By: #### 5 7021-8 ####[facility]ATORYCLIA [id number] [address] [place] Platelet mean volume (Bld) [Entitic vol] 10.8 fL Normal 9.0-12.7 [facility] Comment on above: Order Comment: Speci men Type: BLOOD SPECIMENOrdering Facility: [facility] Address: [address] [place] [address] Performed By: #### 5 7021-8 ####[facility]ORATORYCLIA [id number] [place] [address] [place] Platelets (Bld) [#/Vol] 362 10*3/uL Normal 150-400 [facility] Comment on above: Order Comment: Speci men Type: BLOOD SPECIMENOrdering Facility: [facility] Address: [address] [place] [address] Performed By: #### 5 7021-8 ####[facility]ORATORYCLIA [id number] [place] [address] [place] RBC (Bld) [#/Vol] 3.45 10*6/uL Low 4.20-6.00 [facility] Comment on above: Order Comment: Speci men Type: BLOOD SPECIMENOrdering Facility: [facility] Address: [address] [place] [address] Performed By: #### 5 7021-8 ####[facility]ORATORYCLIA [id number] [address] [place] WBC (Bld) [#/Vol] 11.38 10*3/uL High 3.70-11.00 [facility] Comment on above: Order Comment: Speci men Type: BLOOD SPECIMENOrdering Facility: [facility] Address: [address] [place] [address] Performed By: #### 5 7021-8 ####[facility]ORATORYCLIA [id number] [address] Magnesium SerPl-mCncon 07-22 Magnesium [Mass/Vol] 2.3 mg/dL Normal 1.7-2.3 [facility] Comment on above: Order Comment: Speci men Type: BLOOD SPECIMENOrdering Facility: [facility] Address: [address] [place] [address] Performed By: #### 1 9123-9, 2777-1, 66050-3 ####[facility]ORATORYCLIA [id number] [address] NT-proBNP SerPl-ncon 07-22 Natriuretic peptide.B prohormone N-Terminal [Mass/Vol] 328 pg/mL High <125 [facility] Comment on above: Order Comment: Speci men Type: BLOOD SPECIMENOrdering Facility: [facility] Address: [address] [place] [address] Performed By: #### 1 9123-9, 2777-1, 89069-8 ####[facility]ORATORYCLIA [id number] [address] [place] NURSING PROGon 07-22-2021 NURSING PROG Normal [facility] NUTRITIONon 07-22-2021 NUTRITION Normal [facility] Phosphate SerPl-mCncon 07-22 Phosphate [Mass/Vol] 3.5 mg/dL Normal 2.7-4.8 [facility] Comment on above: Order Comment: Speci men Type: BLOOD SPECIMENOrdering Facility: [facility] Address: [address] [place] [address] Performed By: #### 1 9123-9, 2777-1, 03807-7 ####[facility]ATORYCLIA [id number] [address] THERAPY NTon 07-22-2021 THERAPY NT Normal [facility] THERAPY NT Normal [facility] aPTT PPPon 07-22-2021 aPTT Coag (PPP) [Time] 50.1 s High 23.0-32.4 [facility] Comment on above: Order Comment: Speci men Type: BLOOD SPECIMENOrdering Facility: [facility] Address: [address] [place] [address] Performed By: #### 1 4979-9 ####[facility]ORATORYCLIA [id number] [address] OF [facility] ALLIED HEALTHon 07-21-2021 ALLIED HEALTH Normal [facility] Bacteria Spec Resp Culton Bacteria identified Respiratory culture Nom (Unsp spec) Abnormal [facility] Comment on above: Performed By: #### 3 2355-0 ####[facility]ATORYCLIA [id number] [address] [place] Basic metabolic 2000 panelon 07-21-2021 Anion gap [Moles/Vol] 9 mmol/L Normal - [facility] Comment on above: Order Comment: Speci men Type: BLOOD SPECIMENOrdering Facility: [facility] Address: [address] [place] [address] Performed By: #### 1 9123-9, 2777-, 08915-6 ####[facility]ORATORYCLIA [id number] [address] [place] Calcium [Mass/Vol] 9.9 mg/dL Normal 8.5-10.2 [facility] Comment on above: Order Comment: Speci men Type: BLOOD SPECIMENOrdering Facility: [facility] Address: [facility] [place] [address] Performed By: #### 1 9123-9, 2777-1, 95445-8 ####[facility] LABORATORYCLIA [id number] [address] [place] Chloride [Moles/Vol] 103 mmol/L Normal 97-105 [facility] Comment on above: Order Comment: Speci francia Type: BLOOD SPECIMENOrdering Facility: [facility] Address: [address] [place] [address] Performed By: #### 1 9123-9, 2777-1, 66829-2 ####[facility] LABORATORYCLIA [id number] [address] [place] CO2 [Moles/Vol] 33 mmol/L High 22-30 [facility] Comment on above: Order Comment: Speci men Type: BLOOD SPECIMENOrdering Facility: [facility] Address: [address] [place], [place] [address] Performed By: #### 1 9123-9, 2777-1, 91388-2 ####[facility]ITALCL[facility] [id number] [address] Creatinine [Mass/Vol] 0.80 mg/dL Normal 0.73-1.22 [facility] Comment on above: Order Comment: Speci men Type: BLOOD SPECIMENOrdering Facility: [facility] Address: [address] [place] [address] Performed By: #### 1 9123-9, 2777-1, 95340-9 ####[facility] LABORATORYCLIA [id number] [address] ESTIMATED GLOMERULAR FILTRATION RATE 96 mL/min/1.73m??? Normal >=60 [facility] Comment on above: Order Comment: Speci men Type: BLOOD SPECIMENOrdering Facility: [facility] Address: [address] [place] [address] Result Comment: Luzmaria mated Glomerular Filtration Rate [...] GFR. Performed By: #### 1 9123-9, 2777-, 99125-8 ####[facility] LABORATORYCLIA [id number] [place] [address] [place] Glucose [Mass/Vol] 148 mg/dL High 74-99 [facility] Comment on above: Order Comment: Shira feldman Type: BLOOD SPECIMENOrdering Facility: [facility] Address: [address] [place] [address] Result Comment: The [place] (ADA) [...] 1). Performed By: #### 1 9123-9, 2777-, 36909-7 ####[facility]OSPITALCLIA [id number] [place] [address] [place] Potassium [Moles/Vol] 4.1 mmol/L Normal 3.7-5.1 [facility] Comment on above: Order Comment: Shira feldman Type: BLOOD SPECIMENOrdering Facility: [facility] Address: [address] [id number] Performed By: #### 1 9123-9, 2777-, 05149-1 ####[facility] LABORATORYCLIA [id number] [place] [address] [place] Sodium [Moles/Vol] 145 mmol/L High 136-144 [facility] Comment on above: Order Comment: Shira feldman Type: BLOOD SPECIMENOrdering Facility: [facility] Address: [address] [address] Performed By: #### 1 9123-9, 2777-1, 39364-9 ####[facility] LABORATORYCLIA [id number] [address] STATES [facility] Urea nitrogen [Mass/Vol] 40 mg/dL High 9-24 [facility] Comment on above: Order Comment: Speci men Type: BLOOD SPECIMENOrdering Facility: [facility] Address: [address] [place] [address] Performed By: #### 1 9123-9, 2777-1, 34394-2 ####[facility] LABORATORYCLIA [id number] [address] CBC W Auto Differential pane l (Bld)on 07-21-2021 Basophils (Bld) [#/Vol] 0.06 10*3/uL Normal <0.11 [facility] Comment on above: Order Comment: Speci men Type: BLOOD SPECIMENOrdering Facility: [facility] Address: [address] [place] [address] Performed By: #### 5 7021-8 ####[facility] LABORATORYCLIA [id number] [address] STATES [facility] Basophils/100 WBC (Bld) 0.4 % Normal [facility] Comment on above: Order Comment: Speci men Type: BLOOD SPECIMENOrdering Facility: [facility] Address: [address] [place] [address] Performed By: #### 5 7021-8 ####[facility] LABORATORYCLIA [id number] [address] Differential cell count method Nom (Bld) Auto Normal [facility] Comment on above: Order Comment: Speci men Type: BLOOD SPECIMENOrdering Facility: [facility] Address: [address] [place] [address] Performed By: #### 5 7021-8 ####[facility] LABORATORYCLIA [id number] [address] [place] Eosinophils (Bld) [#/Vol] 0.04 10*3/uL Normal <0.46 [facility] Comment on above: Order Comment: Speci men Type: BLOOD SPECIMENOrdering Facility: [facility] Address: [address] [place] [address] Performed By: #### 5 7021-8 ####[facility] LABORATORYCLIA [id number] [address] [place] Eosinophils/100 WBC (Bld) 0.3 % Normal [facility] Comment on above: Order Comment: Speci men Type: BLOOD SPECIMENOrdering Facility: [facility] Address: [address] [place] [address] Performed By: #### 5 7021-8 ####[facility] LABORATORYCLIA [id number] [address] STATES [facility] Erythrocyte distribution width (RBC) [Ratio] 17.0 % High 11.5-15.0 [facility] Comment on above: Order Comment: Speci men Type: BLOOD SPECIMENOrdering Facility: [facility] Address: [address] [place] [address] Performed By: #### 5 7021-8 ####[facility] LABORATORYCLIA [id number] [address] [place] Hematocrit (Bld) [Volume fraction] 33.1 % Low 39.0-51.0 [facility] Comment on above: Order Comment: Speci men Type: BLOOD SPECIMENOrdering Facility: [facility] Address: [address] [place] [address] Performed By: #### 5 7021-8 ####[facility] LABORATORYCLIA [id number] [address] [place] Hemoglobin (Bld) [Mass/Vol] 9.7 g/dL Low 13.0-17.0 [facility] Comment on above: Order Comment: Speci men Type: BLOOD SPECIMENOrdering Facility: [facility] Address: [address] [place] [address] Performed By: #### 5 7021-8 ####[facility]ORATORYCLIA [id number] [address] IMMATURE GRAN % 0.5 % Normal [facility] Comment on above: Order Comment: Speci men Type: BLOOD SPECIMENOrdering Facility: [facility] Address: [address] [place] [address] Performed By: #### 5 7021-8 ####[facility]ORATORYCLIA [id number] [address] IMMATURE GRAN ABS 0.07 k/uL Normal <0.10 [facility] Comment on above: Order Comment: Speci men Type: BLOOD SPECIMENOrdering Facility: [facility] Address: [address] [place] [address] Performed By: #### 5 7021-8 ####[facility] LABORATORYCLIA [id number] [address] Lymphocytes (Bld) [#/Vol] 1.99 10*3/uL Normal 1.00-4.00 [facility] Comment on above: Order Comment: Speci men Type: BLOOD SPECIMENOrdering Facility: [facility] Address: [address] [place] [address] Performed By: #### 5 7021-8 ####[facility]ORATORYCLIA [id number] [address] Lymphocytes/100 WBC (Bld) 13.4 % Normal [facility] Comment on above: Order Comment: Speci men Type: BLOOD SPECIMENOrdering Facility: [facility] Address: [address] [place] [address] Performed By: #### 5 7021-8 ####[facility]ORATORYCLIA [id number] [address] MCH (RBC) [Entitic mass] 27.2 pg Normal 26.0-34.0 [facility] Comment on above: Order Comment: Speci men Type: BLOOD SPECIMENOrdering Facility: [facility] Address: [address] [place] [address] Performed By: #### 5 7021-8 ####[facility] LABORATORYCLIA [id number] [address] [place] MCHC (RBC) [Mass/Vol] 29.3 g/dL Low 30.5-36.0 [facility] Comment on above: Order Comment: Speci men Type: BLOOD SPECIMENOrdering Facility: [facility] Address: [address] [place] [address] Performed By: #### 5 7021-8 ####[facility] LABORATORYCLIA [id number] [address] [place] MCV (RBC) [Entitic vol] 92.7 fL Normal 80.0-100.0 [facility] Comment on above: Order Comment: Speci men Type: BLOOD SPECIMENOrdering Facility: [facility] Address: [address] [place] [address] Performed By: #### 5 7021-8 ####[facility] LABORATORYCLIA [id number] [address] [place] Monocytes (Bld) [#/Vol] 1.10 10*3/uL High <0.87 [facility] Comment on above: Order Comment: Speci men Type: BLOOD SPECIMENOrdering Facility: [facility] Address: [address] [place] [address] Performed By: #### 5 7021-8 ####[facility] LABORATORYCLIA [id number] [address] STATES [facility] Monocytes/100 WBC (Bld) 7.4 % Normal [facility] Comment on above: Order Comment: Speci men Type: BLOOD SPECIMENOrdering Facility: [facility] Address: [address] [place] [address] Performed By: #### 5 7021-8 ####[facility] LABORATORYCLIA [id number] [place] [address] [place] Neutrophils (Bld) [#/Vol] 11.61 10*3/uL High 1.45-7.50 [facility] Comment on above: Order Comment: Speci men Type: BLOOD SPECIMENOrdering Facility: [facility] Address: [address] [place] [address] Performed By: #### 5 7021-8 ####[facility] LABORATORYCLIA [id number] [address] Neutrophils/100 WBC (Bld) 78.0 % Normal [facility] Comment on above: Order Comment: Speci men Type: BLOOD SPECIMENOrdering Facility: [facility] Address: [address] [place] [address] Performed By: #### 5 7021-8 ####[facility] LABORATORYCLIA [id number] [address] [place] Nucleated RBC (Bld) [#/Vol] 10*3/uL Normal <0.01 [facility] Comment on above: Order Comment: Speci men Type: BLOOD SPECIMENOrdering Facility: [facility] Address: [address] [place] [address] Performed By: #### 5 7021-8 ####[facility] LABORATORYCLIA [id number] [address] Nucleated RBC/100 WBC (Bld) [Ratio] 0.0 /100 WBC Normal [facility] Comment on above: Order Comment: Speci men Type: BLOOD SPECIMENOrdering Facility: [facility] Address: [address] [place] [address] Performed By: #### 5 7021-8 ####[facility] LABORATORYCLIA [id number] [place] [address] [place] Platelet mean volume (Bld) [Entitic vol] 10.4 fL Normal 9.0-12.7 [facility] Comment on above: Order Comment: Speci men Type: BLOOD SPECIMENOrdering Facility: [facility] Address: [address] [place] [address] Performed By: #### 5 7021-8 ####[facility] LABORATORYCLIA [id number] [address] OF [facility] Platelets (Bld) [#/Vol] 396 10*3/uL Normal 150-400 [facility] Comment on above: Order Comment: Speci men Type: BLOOD SPECIMENOrdering Facility: [facility] Address: [address] [place] [address] Performed By: #### 5 7021-8 ####[facility] LABORATORYCLIA [id number] [address] [facility] RBC (Bld) [#/Vol] 3.57 10*6/uL Low 4.20-6.00 [facility] Comment on above: Order Comment: Speci men Type: BLOOD SPECIMENOrdering Facility: [facility] Address: [address] [place] [address] Performed By: #### 5 7021-8 ####[facility] LABORATORYCLIA [id number] [address] OF [facility] WBC (Bld) [#/Vol] 14.87 10*3/uL High 3.70-11.00 [facility] Comment on above: Order Comment: Speci men Type: BLOOD SPECIMENOrdering Facility: [facility] Address: [address] [place] [address] Performed By: #### 5 7021-8 ####[facility] LABORATORYCLIA [id number] [address] Gas and Carbon monoxide pane l (BldV)on 07-21-2021 Base excess Calc (BldV) [Moles/Vol] 7 mmol/L High 0-2 [facility] Comment on above: Order Comment: Speci men Type: VENOUS BLOOD SPECIMENOrdering Facility: [facility] Address: [address] [place] [address] Performed By: #### 2 4344-4 ####[facility] LABORATORYCLIA [id number] [address] Body temperature 98.6 [degF] Normal [facility] Comment on above: Order Comment: Speci men Type: VENOUS BLOOD SPECIMENOrdering Facility: [facility] Address: [address] [place] [address] Performed By: #### 2 4344-4 ####[facility] LABORATORYCLIA [id number] [address] [place] CALCIUM IONIZED, PH CORRECTED 1.21 mmol/L Normal 1.08-1.30 [facility] Comment on above: Order Comment: Speci men Type: VENOUS BLOOD SPECIMENOrdering Facility: [facility] Address: [address] [place] [address] Performed By: #### 2 4344-4 ####[facility] LABORATORYCLIA [id number] [address] [facility] Calcium.ionized (BldV) [Mass/Vol] 1.23 mmol/L Normal 1.08-1.30 [facility] Comment on above: Order Comment: Speci men Type: VENOUS BLOOD SPECIMENOrdering Facility: [facility] Address: [address] [place] [address] Performed By: #### 2 4344-4 ####[facility] LABORATORYCLIA [id number] [address] [place] Carboxyhemoglobin (BldV) [Mass fraction] 2.3 % High 0.0-2.0 [facility] Comment on above: Order Comment: Speci men Type: VENOUS BLOOD SPECIMENOrdering Facility: [facility] Address: [address] [place] [address] Result Comment: Carb oxyhemoglobin Reference Range for Smokers: 2.0-8.0% Performed By: #### 2 4344-4 ####[facility] LABORATORYCLIA [id number] [address] [place] CO2 (BldV) [Partial pressure] 58 mm[Hg] High 42-55 [facility] Comment on above: Order Comment: Speci men Type: VENOUS BLOOD SPECIMENOrdering Facility: [facility] Address: [address] [place] [address] Performed By: #### 2 4344-4 ####[facility] LABORATORYCLIA [id number] [place] [address] [place] CO2 [Moles/Vol] 31 mmol/L High 25-29 [facility] Comment on above: Order Comment: Speci men Type: VENOUS BLOOD SPECIMENOrdering Facility: [facility] Address: [address] [place] [address] Performed By: #### 2 4344-4 ####[facility] LABORATORYCLIA [id number] [place] [address] [place] Glucose [Mass/Vol] 146 mg/dL High 60-105 [facility] Comment on above: Order Comment: Speci men Type: VENOUS BLOOD SPECIMENOrdering Facility: [facility] Address: [address] [place] [address] Performed By: #### 2 4344-4 ####[facility] LABORATORYCLIA [id number] [place] [address] [place] HCO3 (Bld) [Moles/Vol] 33 mmol/L High 24-28 [facility] Comment on above: Order Comment: Speci men Type: VENOUS BLOOD SPECIMENOrdering Facility: [facility] Address: [address] [place] [address] Performed By: #### 2 4344-4 ####[facility] LABORATORYCLIA [id number] [place] [address] [place] Hematocrit (Bld) [Volume fraction] 30.1 % Low 39.0-51.0 [facility] Comment on above: Order Comment: Speci men Type: VENOUS BLOOD SPECIMENOrdering Facility: [facility] Address: [address] [place] [address] Performed By: #### 2 4344-4 ####[facility] LABORATORYCLIA [id number] [place] [address] [place] Hemoglobin (Bld) [Mass/Vol] 9.7 g/dL Low 13.0-17.0 [facility] Comment on above: Order Comment: Speci men Type: VENOUS BLOOD SPECIMENOrdering Facility: [facility] Address: [address] [address] Performed By: #### 2 4344-4 ####[facility] LABORATORYCLIA [id number] [address] [place] Methemoglobin (Bld) [Mass fraction] % Normal 0.0-1.5 [facility] Comment on above: Order Comment: Speci men Type: VENOUS BLOOD SPECIMENOrdering Facility: [facility] Address: [address] [address] Performed By: #### 2 4344-4 ####[facility] LABORATORYCLIA [id number] [address] O2 THERAPY NC = Nasal Cannula Normal [facility] Comment on above: Order Comment: Speci men Type: VENOUS BLOOD SPECIMENOrdering Facility: [facility] Address: [address] [address] Performed By: #### 2 4344-4 ####[facility] LABORATORYCLIA [id number] [address] [place] Oxygen (BldV) [Partial pressure] 64 mm[Hg] High 35-45 [facility] Comment on above: Order Comment: Speci men Type: VENOUS BLOOD SPECIMENOrdering Facility: [facility] Address: [address] [address] Performed By: #### 2 4344-4 ####[facility]ORATORYCLIA [id number] [address] [place] Oxygen saturation in Blood 90 % High 60-85 [facility] Comment on above: Order Comment: Speci men Type: VENOUS BLOOD SPECIMENOrdering Facility: [facility] Address: [address] [address] Performed By: #### 2 4344-4 ####[facility] LABORATORYCLIA [id number] [address] [place] Oxyhemoglobin (BldV) [Mass fraction] 87 % High 60-85 [facility] Comment on above: Order Comment: Speci men Type: VENOUS BLOOD SPECIMENOrdering Facility: [facility] Address: [address] [place] [address] Performed By: #### 2 4344-4 ####[facility] LABORATORYCLIA [id number] [place] [address] [place] pH (BldV) 7.38 [pH] Normal 7.32-7.42 [facility] Comment on above: Order Comment: Speci men Type: VENOUS BLOOD SPECIMENOrdering Facility: [facility] Address: [address] [place] [address] Performed By: #### 2 4344-4 ####[facility]ORATORYCLIA [id number] [place] [address] [place] Potassium [Moles/Vol] 3.8 mmol/L Normal 3.5-5.0 [facility] Comment on above: Order Comment: Speci men Type: VENOUS BLOOD SPECIMENOrdering Facility: [facility] Address: [address] [place] [address] Performed By: #### 2 4344-4 ####[facility]ORATORYCLIA [id number] [address] [place] Sodium [Moles/Vol] 145 mmol/L High 136-144 [facility] Comment on above: Order Comment: Speci men Type: VENOUS BLOOD SPECIMENOrdering Facility: [facility] Address: [address] [place] [address] Performed By: #### 2 4344-4 ####[facility]ORATORYCLIA [id number] [place] [address] [place] Base excess Calc (BldV) [Moles/Vol] 8 mmol/L High 0-2 [facility] Comment on above: Order Comment: Speci men Type: VENOUS BLOOD SPECIMENOrdering Facility: [facility] Address: [address] [place] [address] Performed By: #### 2 4344-4 ####[facility]ORATORYCLIA [id number] [address] Body temperature 100.22 [degF] Normal [facility] Comment on above: Order Comment: Speci men Type: VENOUS BLOOD SPECIMENOrdering Facility: [facility] Address: [address] [place] [address] Performed By: #### 2 4344-4 ####[facility] LABORATORYCLIA [id number] [address] [facility] CALCIUM IONIZED, PH CORRECTED 1.25 mmol/L Normal 1.08-1.30 [facility] Comment on above: Order Comment: Speci men Type: VENOUS BLOOD SPECIMENOrdering Facility: [facility] Address: [address] [place] [address] Performed By: #### 2 4344-4 ####[facility] LABORATORYCLIA [id number] [address] STATES [facility] Calcium.ionized (BldV) [Mass/Vol] 1.24 mmol/L Normal 1.08-1.30 [facility] Comment on above: Order Comment: Speci men Type: VENOUS BLOOD SPECIMENOrdering Facility: [facility] Address: [address] [place] [address] Performed By: #### 2 4344-4 ####[facility] LABORATORYCLIA [id number] [address] [place] Carboxyhemoglobin (BldV) [Mass fraction] 2.5 % High 0.0-2.0 [facility] Comment on above: Order Comment: Speci men Type: VENOUS BLOOD SPECIMENOrdering Facility: [facility] Address: [address] [place] [address] Result Comment: Carb oxyhemoglobin Reference Range for Smokers: 2.0-8.0% Performed By: #### 2 4344-4 ####[facility]ORATORYCLIA [id number] [address] [place] CO2 (BldV) [Partial pressure] 53 mm[Hg] Normal 42-55 [facility] Comment on above: Order Comment: Speci men Type: VENOUS BLOOD SPECIMENOrdering Facility: [facility] Address: [address] [place] [address] Performed By: #### 2 4344-4 ####[facility]ORATORYCLIA [id number] [address] [place] CO2 [Moles/Vol] 31 mmol/L High 25-29 [facility] Comment on above: Order Comment: Speci men Type: VENOUS BLOOD SPECIMENOrdering Facility: [facility] Address: [address] [place] [address] Performed By: #### 2 4344-4 ####[facility]ORATORYCLIA [id number] [address] [place] CO2 adjusted to patient's actual temperature (BldV) [Partial pressure] 56 mmHg High 42-55 [facility] Comment on above: Order Comment: Speci men Type: VENOUS BLOOD SPECIMENOrdering Facility: [facility] Address: [address] [place] [address] Performed By: #### 2 4344-4 ####[facility]ORATORYCLIA [id number] [place] [address] [place] Glucose [Mass/Vol] 131 mg/dL High 60-105 [facility] Comment on above: Order Comment: Speci men Type: VENOUS BLOOD SPECIMENOrdering Facility: [facility] Address: [address] [place] [address] Performed By: #### 2 4344-4 ####[facility]ORATORYCLIA [id number] [place] [address] [place] HCO3 (Bld) [Moles/Vol] 33 mmol/L High 24-28 [facility] Comment on above: Order Comment: Speci men Type: VENOUS BLOOD SPECIMENOrdering Facility: [facility] Address: [address] [place] [address] Performed By: #### 2 4344-4 ####[facility]ORATORYCLIA [id number] [place] [address] [place] Hematocrit (Bld) [Volume fraction] 30.8 % Low 39.0-51.0 [facility] Comment on above: Order Comment: Speci men Type: VENOUS BLOOD SPECIMENOrdering Facility: [facility] Address: [address] [address] Performed By: #### 2 4344-4 ####[facility]ORATORYCLIA [id number] [address] [place] Hemoglobin (Bld) [Mass/Vol] 10.0 g/dL Low 13.0-17.0 [facility] Comment on above: Order Comment: Speci men Type: VENOUS BLOOD SPECIMENOrdering Facility: [facility] Address: [address] [place] [address] Performed By: #### 2 4344-4 ####[facility] LABORATORYCLIA [id number] [address] [place] Methemoglobin (Bld) [Mass fraction] % Normal 0.0-1.5 [facility] Comment on above: Order Comment: Speci men Type: VENOUS BLOOD SPECIMENOrdering Facility: [facility] Address: [address] [place] [address] Performed By: #### 2 4344-4 ####[facility] LABORATORYCLIA [id number] [address] [place] O2 THERAPY NC = Nasal Cannula Normal [facility] Comment on above: Order Comment: Speci men Type: VENOUS BLOOD SPECIMENOrdering Facility: [facility] Address: [address] [place] [address] Performed By: #### 2 4344-4 ####[facility] LABORATORYCLIA [id number] [address] [place] Oxygen (BldV) [Partial pressure] 58 mm[Hg] High 35-45 [facility] Comment on above: Order Comment: Speci men Type: VENOUS BLOOD SPECIMENOrdering Facility: [facility] Address: [address] [address] Performed By: #### 2 4344-4 ####[facility]ORATORYCLIA [id number] [address] [place] Oxygen adjusted to patient's actual temperature (BldV) [Partial pressure] 61 mmHg High 35-45 [facility] Comment on above: Order Comment: Speci men Type: VENOUS BLOOD SPECIMENOrdering Facility: [facility] Address: [address] [place] [address] Performed By: #### 2 4344-4 ####[facility] LABORATORYCLIA [id number] [address] [place] Oxygen saturation in Blood 88 % High 60-85 [facility] Comment on above: Order Comment: Speci men Type: VENOUS BLOOD SPECIMENOrdering Facility: [facility] Address: [address] [place] [address] Performed By: #### 2 4344-4 ####[facility] LABORATORYCLIA [id number] [address] Oxyhemoglobin (BldV) [Mass fraction] 85 % Normal 60-85 [facility] Comment on above: Order Comment: Speci men Type: VENOUS BLOOD SPECIMENOrdering Facility: [facility] Address: [address] [place] [address] Performed By: #### 2 4344-4 ####[facility] LABORATORYCLIA [id number] [address] [place] pH (BldV) 7.41 [pH] Normal 7.32-7.42 [facility] Comment on above: Order Comment: Speci men Type: VENOUS BLOOD SPECIMENOrdering Facility: [facility] Address: [address] [place] [address] Performed By: #### 2 4344-4 ####[facility] LABORATORYCLIA [id number] [address] STATES [facility] pH adjusted to patient's actual temperature (BldV) 7.40 Normal 7.32-7.42 [facility] Comment on above: Order Comment: Speci men Type: VENOUS BLOOD SPECIMENOrdering Facility: [facility] Address: [address] [address] Performed By: #### 2 4344-4 ####[facility] LABORATORYCLIA [id number] [place] [address] [place] Potassium [Moles/Vol] 4.0 mmol/L Normal 3.5-5.0 [facility] Comment on above: Order Comment: Speci men Type: VENOUS BLOOD SPECIMENOrdering Facility: [facility] Address: [address] [place] [address] Performed By: #### 2 4344-4 ####[facility] LABORATORYCLIA [id number] [place] [address] [place] Sodium [Moles/Vol] 146 mmol/L High 136-144 [facility] Comment on above: Order Comment: Speci men Type: VENOUS BLOOD SPECIMENOrdering Facility: [facility] Address: [address] [place] [address] Performed By: #### 2 4344-4 ####[facility] LABORATORYCLIA [id number] [place] [address] [place] Magnesium SerPl-mCncon 07-21 Magnesium [Mass/Vol] 2.5 mg/dL High 1.7-2.3 [facility] Comment on above: Order Comment: Speci men Type: BLOOD SPECIMENOrdering Facility: [facility] Address: [address] [place] [address] Performed By: #### 1 9123-9, 2777-1, 75784-7 ####[facility]ORATORYCLIA [id number] [place] [address] [place] NURSING PROGon 07-21-2021 NURSING PROG Normal [facility] Phosphate SerPl-mCncon 07-21 Phosphate [Mass/Vol] 3.7 mg/dL Normal 2.7-4.8 [facility] Comment on above: Order Comment: Speci men Type: BLOOD SPECIMENOrdering Facility: [facility] Address: [address] [place] [address] Performed By: #### 1 9123-9, 2777-1, 21466-5 ####[facility] LABORATORYCLIA [id number] [address] OF [facility] THERAPY NTon 07-21-2021 THERAPY NT Normal [facility] XR CHEST 1V FRONTALon 2021 XR CHEST 1V FRONTAL Normal [facility] aPTT PPPon 07-21-2021 aPTT Coag (PPP) [Time] 53.0 s High 23.0-32.4 [facility] Comment on above: Order Comment: Speci men Type: BLOOD SPECIMENOrdering Facility: [facility] Address: [address] [place] [address] Performed By: #### 1 4979-9 ####[facility]ORATORYCLIA [id number] [address] [place] ALLIED HEALTHon 07-20-2021 ALLIED HEALTH Normal [facility] Basic metabolic 2000 panelon 07-20-2021 Anion gap [Moles/Vol] 8 mmol/L Low 9-18 [facility] Comment on above: Order Comment: Speci men Type: BLOOD SPECIMENOrdering Facility: [facility] Address: [address] [place] [address] Performed By: #### 2 4321-2, , 2776-05 ####[facility] LABORATORYCLIA [id number] [place] [address] [place] [facility] Calcium [Mass/Vol] 9.7 mg/dL Normal 8.5-10.2 [facility] Comment on above: Order Comment: Speci men Type: BLOOD SPECIMENOrdering Facility: [facility] Address: [address] [place] [address] Performed By: #### 2 4321-2, , 2777 ####[facility] LABORATORYCLIA [id number] [place] [address] [place] Chloride [Moles/Vol] 104 mmol/L Normal 97-105 [facility] Comment on above: Order Comment: Speci men Type: BLOOD SPECIMENOrdering Facility: [facility] Address: [address] [place] [address] Performed By: #### 2 4321-2, , 2776-05 ####[facility]ITALCLIA [id number] [address] STATES OF [facility] CO2 [Moles/Vol] 34 mmol/L High 22-30 [facility] Comment on above: Order Comment: Speci men Type: BLOOD SPECIMENOrdering Facility: [facility] Address: [address] [place] [address] Performed By: #### 2 4321-2, , 2776-05 ####[facility]ITALCLIA [id number] [address] Creatinine [Mass/Vol] 0.76 mg/dL Normal 0.73-1.22 [facility] Comment on above: Order Comment: Speci men Type: BLOOD SPECIMENOrdering Facility: [facility] Address: [address] [place] [address] Performed By: #### 2 4321-2, , 2776-05 ####[facility]PITALIA [id number] [address] ESTIMATED GLOMERULAR FILTRATION RATE 97 mL/min/1.73m??? Normal >=60 [facility] Comment on above: Order Comment: Speci men Type: BLOOD SPECIMENOrdering Facility: [facility] Address: [address] [place] [address] Result Comment: Luzmaria mated Glomerular Filtration Rate [...] , 2776-05 ####[facility] LABORATORYCLIA [id number] [place] [address] [place] Glucose [Mass/Vol] 123 mg/dL High 74-99 [facility] Comment on above: Order Comment: Speci men Type: BLOOD SPECIMENOrdering Facility: [facility] Address: [address] [place], [place] [id number] Result Comment: The [place] [employer] (ADA) [...] , 2776-05 ####[facility] LABORATORYCLIA [id number] [place] [address] [place] Potassium [Moles/Vol] 4.4 mmol/L Normal 3.7-5.1 [facility] Comment on above: Order Comment: Shira francia Type: BLOOD SPECIMENOrdering Facility: [facility] Address: [address] [place], [place] [address] Performed By: #### 2 4321-2, , 2776-05 ####[facility] LABORATORYCLIA [id number] [place] [address] [place] Sodium [Moles/Vol] 146 mmol/L High 136-144 [facility] Comment on above: Order Comment: Speci men Type: BLOOD SPECIMENOrdering Facility: [facility] Address: [address] [place], [place] [phone] Performed By: #### 2 4321-2, , 2776-05 ####[facility] LABORATORYCLIA [id number] [place] [address] [place] Urea nitrogen [Mass/Vol] 38 mg/dL High 9-24 [facility] Comment on above: Order Comment: Speci men Type: BLOOD SPECIMENOrdering Facility: [facility] Address: [address] [place] [address] Performed By: #### 2 4321-2, 78569-3, 2777-1 ####[facility] LABORATORYCLIA [id number] [address] [place] CASE MANAGEMon 07-20-2021 CASE MANAGEM Normal [facility] CBC W Auto Differential pane l (Bld)on 07-20-2021 Basophils (Bld) [#/Vol] 0.05 10*3/uL Normal <0.11 [facility] Comment on above: Order Comment: Speci men Type: BLOOD SPECIMENOrdering Facility: [facility] Address: [address] [place] [address] Performed By: #### 5 7021-8 ####[facility] LABORATORYCLIA [id number] [place] [address] [place] Basophils/100 WBC (Bld) 0.5 % Normal [facility] Comment on above: Order Comment: Speci men Type: BLOOD SPECIMENOrdering Facility: [facility] Address: [address] [place] [address] Performed By: #### 5 7021-8 ####[facility] LABORATORYCLIA [id number] [address] [place] Differential cell count method Nom (Bld) Auto Normal [facility] Comment on above: Order Comment: Speci men Type: BLOOD SPECIMENOrdering Facility: [facility] Address: [address] [place] [address] Performed By: #### 5 7021-8 ####[facility] LABORATORYCLIA [id number] [place] [address] [place] Eosinophils (Bld) [#/Vol] 0.43 10*3/uL Normal <0.46 [facility] Comment on above: Order Comment: Speci men Type: BLOOD SPECIMENOrdering Facility: [facility] Address: [address] [place] [address] Performed By: #### 5 7021-8 ####[facility] LABORATORYCLIA [id number] [address] Eosinophils/100 WBC (Bld) 4.1 % Normal [facility] Comment on above: Order Comment: Speci men Type: BLOOD SPECIMENOrdering Facility: [facility] Address: [address] [place] [address] Performed By: #### 5 7021-8 ####[facility] LABORATORYCLIA [id number] [address] Erythrocyte distribution width (RBC) [Ratio] 16.7 % High 11.5-15.0 [facility] Comment on above: Order Comment: Speci men Type: BLOOD SPECIMENOrdering Facility: [facility] Address: [address] [place] [address] Performed By: #### 5 7021-8 ####[facility] LABORATORYCLIA [id number] [address] Hematocrit (Bld) [Volume fraction] 33.0 % Low 39.0-51.0 [facility] Comment on above: Order Comment: Speci men Type: BLOOD SPECIMENOrdering Facility: [facility] Address: [address] [place] [address] Performed By: #### 5 7021-8 ####[facility] LABORATORYCLIA [id number] [address] Hemoglobin (Bld) [Mass/Vol] 9.7 g/dL Low 13.0-17.0 [facility] Comment on above: Order Comment: Speci men Type: BLOOD SPECIMENOrdering Facility: [facility] Address: [address] [place] [address] Performed By: #### 5 7021-8 ####[facility] LABORATORYCLIA [id number] [address] IMMATURE GRAN % 0.4 % Normal [facility] Comment on above: Order Comment: Speci men Type: BLOOD SPECIMENOrdering Facility: [facility] Address: [address] [place] [address] Performed By: #### 5 7021-8 ####[facility]ORATORYCLIA [id number] [address] IMMATURE GRAN ABS 0.04 k/uL Normal <0.10 [facility] Comment on above: Order Comment: Speci men Type: BLOOD SPECIMENOrdering Facility: [facility] Address: [address] [place] [address] Performed By: #### 5 7021-8 ####[facility]ORATORYCLIA [id number] [address] Lymphocytes (Bld) [#/Vol] 1.99 10*3/uL Normal 1.00-4.00 [facility] Comment on above: Order Comment: Speci men Type: BLOOD SPECIMENOrdering Facility: [facility] Address: [address] [place] [address] Performed By: #### 5 7021-8 ####[facility]ORATORYCLIA [id number] [address] Lymphocytes/100 WBC (Bld) 18.8 % Normal [facility] Comment on above: Order Comment: Speci men Type: BLOOD SPECIMENOrdering Facility: [facility] Address: [address] [place] [address] Performed By: #### 5 7021-8 ####[facility]ORATORYCLIA [id number] [address] [place] MCH (RBC) [Entitic mass] 27.8 pg Normal 26.0-34.0 [facility] Comment on above: Order Comment: Speci men Type: BLOOD SPECIMENOrdering Facility: [facility] Address: [address] [place] [address] Performed By: #### 5 7021-8 ####[facility] LABORATORYCLIA [id number] [address] STATES OF [facility] MCHC (RBC) [Mass/Vol] 29.4 g/dL Low 30.5-36.0 [facility] Comment on above: Order Comment: Speci men Type: BLOOD SPECIMENOrdering Facility: [facility] Address: [address] [place] [address] Performed By: #### 5 7021-8 ####[facility]ORATORYCLIA [id number] [address] MCV (RBC) [Entitic vol] 94.6 fL Normal 80.0-100.0 [facility] Comment on above: Order Comment: Speci men Type: BLOOD SPECIMENOrdering Facility: [facility] Address: [address] [place] [address] Performed By: #### 5 7021-8 ####[facility]ORATORYCLIA [id number] [address] [place] Monocytes (Bld) [#/Vol] 0.82 10*3/uL Normal <0.87 [facility] Comment on above: Order Comment: Speci men Type: BLOOD SPECIMENOrdering Facility: [facility] Address: [address] [place] [address] Performed By: #### 5 7021-8 ####[facility]ORATORYCLIA [id number] [address] Monocytes/100 WBC (Bld) 7.8 % Normal [facility] Comment on above: Order Comment: Speci men Type: BLOOD SPECIMENOrdering Facility: [facility] Address: [address] [place] [address] Performed By: #### 5 7021-8 ####[facility] LABORATORYCLIA [id number] [address] [place] Neutrophils (Bld) [#/Vol] 7.23 10*3/uL Normal 1.45-7.50 [facility] Comment on above: Order Comment: Speci men Type: BLOOD SPECIMENOrdering Facility: [facility] Address: [address] [address] Performed By: #### 5 7021-8 ####[facility]ORATORYCLIA [id number] [address] Neutrophils/100 WBC (Bld) 68.4 % Normal [facility] Comment on above: Order Comment: Speci men Type: BLOOD SPECIMENOrdering Facility: [facility] Address: [address] [place] [address] Performed By: #### 5 7021-8 ####[facility]ORATORYCLIA [id number] [address] [place] Nucleated RBC (Bld) [#/Vol] 10*3/uL Normal <0.01 [facility] Comment on above: Order Comment: Speci men Type: BLOOD SPECIMENOrdering Facility: [facility] Address: [address] [place] [address] Performed By: #### 5 7021-8 ####[facility]ORATORYCLIA [id number] [address] [place] Nucleated RBC/100 WBC (Bld) [Ratio] 0.0 /100 WBC Normal [facility] Comment on above: Order Comment: Speci men Type: BLOOD SPECIMENOrdering Facility: [facility] Address: [address] [place] [address] Performed By: #### 5 7021-8 ####[facility]ORATORYCLIA [id number] [address] [place] Platelet mean volume (Bld) [Entitic vol] 10.5 fL Normal 9.0-12.7 [facility] Comment on above: Order Comment: Speci men Type: BLOOD SPECIMENOrdering Facility: [facility] Address: [address] [place] [address] Performed By: #### 5 7021-8 ####[facility] LABORATORYCLIA [id number] [place] [address] [place] Platelets (Bld) [#/Vol] 400 10*3/uL Normal 150-400 [facility] Comment on above: Order Comment: Speci men Type: BLOOD SPECIMENOrdering Facility: [facility] Address: [address] [place] [address] Performed By: #### 5 7021-8 ####[facility]ORATORYCLIA [id number] [address] [place] RBC (Bld) [#/Vol] 3.49 10*6/uL Low 4.20-6.00 [facility] Comment on above: Order Comment: Speci men Type: BLOOD SPECIMENOrdering Facility: [facility] Address: [address] [place] [address] Performed By: #### 5 7021-8 ####[facility]ORATORYCLIA [id number] [address] WBC (Bld) [#/Vol] 10.56 10*3/uL Normal 3.70-11.00 [facility] Comment on above: Order Comment: Speci men Type: BLOOD SPECIMENOrdering Facility: [facility] Address: [address] [place] [address] Performed By: #### 5 7021-8 ####[facility]ORATORYCLIA [id number] [address] CONSULT PROGon 07-20-2021 CONSULT PROG Normal [facility] CT BRAIN WO IVCONon 07-21-[address] BRAIN WO IVCON Normal [facility] Magnesium SerPl-mCncon 07-20 Magnesium [Mass/Vol] 2.4 mg/dL High 1.7-2.3 [facility] Comment on above: Order Comment: Speci men Type: BLOOD SPECIMENOrdering Facility: [facility] Address: [address] [place] [address] Performed By: #### 2 4321-2, 54002-2, 2777-1 ####[facility]ORATORYCLIA [id number] [address] [place] NUTRITIONon 07-20-2021 NUTRITION Normal [facility] Phosphate SerPl-mCncon 07-20 Phosphate [Mass/Vol] 4.1 mg/dL Normal 2.7-4.8 [facility] Comment on above: Order Comment: Speci men Type: BLOOD SPECIMENOrdering Facility: [facility] Address: [address] [place] [address] Performed By: #### 2 4321-2, 78509-4, 2777-1 ####[facility]ORATORYCLIA [id number] [place] [address] [place] aPTT PPPon 07-20-2021 aPTT Coag (PPP) [Time] 53.6 s High 23.0-32.4 [facility] Comment on above: Order Comment: Speci men Type: BLOOD SPECIMENOrdering Facility: [facility] Address: [address] [place] [address] Performed By: #### 1 4979-9 ####[facility]ORATORYCLIA [id number] [place] [address] [place] Bacteria CSF Culton 07-20-19 22 Bacteria identified Cx Nom (CSF) CULTURE, CSF: No growth 14 days GRAM STAIN: No organisms seen No Polymorphonuclear Leukocytes Rare Mononuclear cells Gram stain performed on cytospun specimen. Normal [facility] Comment on above: Performed By: #### 6 06-4 ####[facility]ORATORYCLIA [id number] [place] [address] [place] CONSULT PROGon 07-19-2021 CONSULT PROG Normal [facility] CSF MANUAL DIFFon 07-19-2021 DIF TTL, CSF 100 cells counted Normal [facility] Comment on above: Order Comment: Speci men Type: CEREBROSPINAL FLUIDOrdering Facility: [facility] Address: [address] [place] [address] Performed By: #### L [id number], 42527-1, [id number] ####[facility]ORATORYCLIA [id number] [place] [address] [place] EOSIN%, CSF 1 % Normal [facility] Comment on above: Order Comment: Speci men Type: CEREBROSPINAL FLUIDOrdering Facility: [facility] Address: [address] [address] Performed By: #### L [id number], 51180-4, [id number] ####[facility]ORATORYCLIA [id number] [place] [address] [place] LYMPH%, CSF 67 % Normal 50-90 [facility] Comment on above: Order Comment: Speci men Type: CEREBROSPINAL FLUIDOrdering Facility: [facility] Address: [address] [place] [address] Performed By: #### L [id number], 59891-2, [id number] ####[facility]ORATORYCLIA [id number] [address] [place] MACRO%, CSF 1 % High <1 [facility] Comment on above: Order Comment: Speci men Type: CEREBROSPINAL FLUIDOrdering Facility: [facility] Address: [address] [place] [address] Performed By: #### L [id number], 33774-5, [id number] ####[facility]ORATORYCLIA [id number] [address] [place] MONO%, CSF 18 % Normal 10-50 [facility] Comment on above: Order Comment: Speci men Type: CEREBROSPINAL FLUIDOrdering Facility: [facility] Address: [address] [address] Performed By: #### L [id number], 10796-2, [id number] ####[facility]ORATORYCLIA [id number] [address] [place] NEUT%, CSF 11 % High 0-3 [facility] Comment on above: Order Comment: Speci men Type: CEREBROSPINAL FLUIDOrdering Facility: [facility] Address: [facility] [address] Performed By: #### L [id number], 61293-1, [id number] ####[facility]ORATORYCLIA [id number] [address] [place] OTHER CL%, CSF 2 % Normal [facility] Comment on above: Order Comment: Speci men Type: CEREBROSPINAL FLUIDOrdering Facility: [facility] Address: [address] [place] [address] Result Comment: Path review to follow. Performed By: #### L [id number], 05299-7, [id number] ####[facility]ORATORYCLIA [id number] [address] [place] CSF PATHOLOGIST INTERP (LAB REFLEX ORDER-NO BILL)on 07-19-2021 CSF STAFF REVIEW Normal [facility] Comment on above: Order Comment: Speci men Type: CEREBROSPINAL FLUIDOrdering Facility: [facility] Address: [address] [place] [address] Performed By: #### L [id number], 05553-2, [id number] ####[facility]ORATORYCLIA [id number] [address] Pathologist name Reviewed by Wing Cummings MD [facility] Comment on above: Order Comment: Speci men Type: CEREBROSPINAL FLUIDOrdering Facility: [facility] Address: [address] [place] [address] Performed By: #### L [id number], 72704-9, [id number] ####[facility]ORATORYCLIA [id number] [address] Cell count panel (CSF)on Clarity (CSF) Clear Normal Clear [facility] Comment on above: Order Comment: Speci men Type: CEREBROSPINAL FLUIDOrdering Facility: [facility] Address: [address] [place] [address] Performed By: #### L [id number], 81635-8, [id number] ####[facility]ORATORYCLIA [id number] [address] Clarity (Unsp spec) Not Indicated Normal Clear [facility] Comment on above: Order Comment: Speci men Type: CEREBROSPINAL FLUIDOrdering Facility: [facility] Address: [address] [address] Performed By: #### L [id number], 61206-6, [id number] ####[facility]ORATORYCLIA [id number] [address] Color (CSF) Colorless Normal Colorless [facility] Comment on above: Order Comment: Speci men Type: CEREBROSPINAL FLUIDOrdering Facility: [facility] Address: [address] [place] [address] Performed By: #### L [id number], 67355-3, [id number] ####[facility]ORATORYCLIA [id number] [address] OF [facility] Color (Spun CSF) Not Indicated Normal Colorless [facility] Comment on above: Order Comment: Speci men Type: CEREBROSPINAL FLUIDOrdering Facility: [facility] Address: [address] [place] [address] Performed By: #### L [id number], 79692-5, [id number] ####[facility]ORATORYCLIA [id number] [address] CSF TUBE [employer]BER [employer] Normal [facility] Comment on above: Order Comment: Speci men Type: CEREBROSPINAL FLUIDOrdering Facility: [facility] Address: [address] [place] [address] Performed By: #### L [id number], 19403-3, [id number] ####[facility]ORATORYCLIA [id number] [address] STATES OF [facility] RBC Manual cnt (CSF) [#/Vol] 0 cells/uL Normal 0-5 [facility] Comment on above: Order Comment: Speci men Type: CEREBROSPINAL FLUIDOrdering Facility: [facility] Address: [address] [place] [address] Performed By: #### L [id number], 43166-9, [id number] ####[facility]ORATORYCLIA [id number] [address] OF [facility] WBC Manual cnt (CSF) [#/Vol] 2 cells/uL Normal 0-5 [facility] Comment on above: Order Comment: Speci men Type: CEREBROSPINAL FLUIDOrdering Facility: [facility] Address: [address] [place] [address] Performed By: #### L [id number], 03106-1, [id number] ####[facility]ORATORYCLIA [id number] [address] [place] Glucose CSF-[facility] Glucose (CSF) [Mass/Vol] 69 mg/dL Normal 40-70 [facility] Comment on above: Order Comment: Speci men Type: CEREBROSPINAL FLUIDOrdering Facility: [facility] Address: [address] [place] [address] Result Comment: Lumb ar CSF glucose values of healthy patients are approximately 60% of the plasma values and must always be compared with a concurrently measured plasma value for adequate clinical interpretation.References: 1. Glucose HK (GLUC3) [package insert V 12.0 Syrian]. [employer], [place], [place]. September 2015. 2. Michelle Moore, Loki HGarfield (2015). Chapter 7: Glucose and Lactate. F. Irina rose al.(eds.), Cerebrospinal Fluid in Clinical Neurology. Dickenson: [employer]. Performed By: #### 2 342-4, 2880-3 ####[facility] LABORATORYCLIA [id number] [address] [place] NURSING PROGon 07-19-2021 NURSING PROG Normal [facility] NURSING PROG Normal [facility] Prot CSF-ncon 07-19-2021 Protein (CSF) [Mass/Vol] 51 mg/dL High 15-45 [facility] Comment on above: Order Comment: Speci men Type: CEREBROSPINAL FLUIDOrdering Facility: [facility] Address: [address] [place] [address] Performed By: #### 2 342-4, 2880-3 ####[facility] LABORATORYCLIA [id number] [address] [place] THERAPY NTon 07-19-2021 THERAPY NT Normal [facility] Urinalysis complete panel (U )on 07-19-2021 Bilirubin Ql (U) Negative Normal Negative [facility] Comment on above: Order Comment: Speci men Type: URINE SPECIMENOrdering Facility: [facility] Address: [address] [place] [address] Performed By: #### 2 4356-8 ####[facility] LABORATORYCLIA [id number] [address] Clarity (Unsp spec) Clear Normal Clear [facility] Comment on above: Order Comment: Speci men Type: URINE SPECIMENOrdering Facility: [facility] Address: [address] [place] [address] Performed By: #### 2 4356-8 ####[facility] LABORATORYCLIA [id number] [address] Color (U) Colorless Normal yellow [facility] Comment on above: Order Comment: Speci men Type: URINE SPECIMENOrdering Facility: [facility] Address: [address] [place] [address] Performed By: #### 2 4356-8 ####[facility] LABORATORYCLIA [id number] [address] Glucose Test strip (U) [Mass/Vol] Negative Normal Negative [facility] Comment on above: Order Comment: Speci men Type: URINE SPECIMENOrdering Facility: [facility] Address: [address] [place] [address] Performed By: #### 2 4356-8 ####[facility] LABORATORYCLIA [id number] [address] Hemoglobin Ql (U) Trace Abnormal Negative [facility] Comment on above: Order Comment: Speci men Type: URINE SPECIMENOrdering Facility: [facility] Address: [address] [place] [address] Performed By: #### 2 4356-8 ####[facility] LABORATORYCLIA [id number] [address] [place] Hyaline casts (Urine sed) [#/Area] 1-3 /LPF Abnormal 0 /LPF [facility] Comment on above: Order Comment: Speci men Type: URINE SPECIMENOrdering Facility: [facility] Address: [address] [place] [address] Performed By: #### 2 4356-8 ####[facility] LABORATORYCLIA [id number] [address] Ketones Ql (U) Negative Normal Negative [facility] Comment on above: Order Comment: Speci men Type: URINE SPECIMENOrdering Facility: [facility] Address: [address] [place] [address] Performed By: #### 2 4356-8 ####[facility] LABORATORYCLIA [id number] [address] Leukocyte esterase Test strip Ql (U) Negative Normal Negative [facility] Comment on above: Order Comment: Speci men Type: URINE SPECIMENOrdering Facility: [facility] Address: [address] [place] [address] Performed By: #### 2 4356-8 ####[facility] LABORATORYCLIA [id number] [address] STATES [facility] Nitrite Ql (U) Negative Normal Negative [facility] Comment on above: Order Comment: Speci men Type: URINE SPECIMENOrdering Facility: [facility] Address: [address] [place] [address] Performed By: #### 2 4356-8 ####[facility] LABORATORYCLIA [id number] [address] [place] pH (U) 7.0 [pH] Normal 5.0-8.0 [facility] Comment on above: Order Comment: Speci men Type: URINE SPECIMENOrdering Facility: [facility] Address: [address] [place] [address] Performed By: #### 2 4356-8 ####[facility] LABORATORYCLIA [id number] [address] [place] Protein (U) [Mass/Vol] Negative Normal Negative [facility] Comment on above: Order Comment: Speci men Type: URINE SPECIMENOrdering Facility: [facility] Address: [address] [place] [address] Performed By: #### 2 4356-8 ####[facility] LABORATORYCLIA [id number] [address] [place] RBC LM.HPF (Urine sed) [#/Area] 6-10 /HPF Abnormal 0-3 /HPF [facility] Comment on above: Order Comment: Speci men Type: URINE SPECIMENOrdering Facility: [facility] Address: [address] [place] [address] Performed By: #### 2 4356-8 ####[facility] LABORATORYCLIA [id number] [address] Specific gravity (U) [Rel density] 1.008 Normal 1.005-1.030 [facility] Comment on above: Order Comment: Speci men Type: URINE SPECIMENOrdering Facility: [facility] Address: [address] [place] [address] Performed By: #### 2 4356-8 ####[facility] LABORATORYCLIA [id number] [address] Urobilinogen Ql (U) Normal Normal Negative [facility] Comment on above: Order Comment: Speci men Type: URINE SPECIMENOrdering Facility: [facility] Address: [address] [place] [address] Performed By: #### 2 4356-8 ####[facility] LABORATORYCLIA [id number] [address] [place] WBC LM.HPF (Urine sed) [#/Area] 0-5 /HPF Normal 0-5 /HPF [facility] Comment on above: Order Comment: Speci men Type: URINE SPECIMENOrdering Facility: [facility] Address: [address] [place] [address] Performed By: #### 2 4356-8 ####[facility] LABORATORYCLIA [id number] [address] STATES OF [facility] Vancomycin random [Mass/Vol] on 07-19-2021 Vancomycin [Mass/Vol] 13.9 ug/mL Normal 10.0-20.0 [facility] Comment on above: Order Comment: Speci men Type: BLOOD SPECIMENOrdering Facility: [facility] Address: [address] [place] [address] Result Comment: Refe rence ranges and high/low indicator flags are provided as general guidelines only. The treating physician must determine appropriate target levels/dosing based on the specific clinical situation. Performed By: #### 4 091-5 ####[facility] LABORATORYCLIA [id number] [address] STATES OF [facility] aPTT PPPon 07-19-2021 aPTT Coag (PPP) [Time] 53.9 s High 23.0-32.4 [facility] Comment on above: Order Comment: Speci men Type: BLOOD SPECIMENOrdering Facility: [facility] Address: [address] [place] [address] Performed By: #### 1 4979-9 ####[facility]CLIA [id number] [place] [address] [place] Basic metabolic 2000 panelon 07-18-2021 Anion gap [Moles/Vol] 6 mmol/L Low 9-18 [facility] Comment on above: Order Comment: Speci men Type: BLOOD SPECIMENOrdering Facility: [facility] Address: [address] [place] [address] Performed By: #### 2 4321-2, 49623-5, 2777-1 ####[facility] LABORATORYCLIA [id number] [address] [place] Calcium [Mass/Vol] 9.4 mg/dL Normal 8.5-10.2 [facility] Comment on above: Order Comment: Speci men Type: BLOOD SPECIMENOrdering Facility: [facility] Address: [address] [place] [address] Performed By: #### 2 4321-2, , 2776-05 ####[facility] LABORATORYCLIA [id number] [place] [id number] [place] Chloride [Moles/Vol] 103 mmol/L Normal 97-105 [facility] Comment on above: Order Comment: Speci men Type: BLOOD SPECIMENOrdering Facility: [facility] Address: [address] [place] [address] Performed By: #### 2 4321-2, , 2776-05 ####[facility] LABORATORYCLIA [id number] [place] [address] [place] CO2 [Moles/Vol] 34 mmol/L High 22-30 [facility] Comment on above: Order Comment: Speci men Type: BLOOD SPECIMENOrdering Facility: [facility] Address: [address] [place] [address] Performed By: #### 2 4321-2, , 2776-05 ####[facility] LABORATORYCLIA [id number] [address] STATES OF [facility] Creatinine [Mass/Vol] 0.75 mg/dL Normal 0.73-1.22 [facility] Comment on above: Order Comment: Speci men Type: BLOOD SPECIMENOrdering Facility: [facility] Address: [address] [place] [address] Performed By: #### 2 4321-2, , 2776-05 ####[facility] LABORATORYCLIA [id number] [address] ESTIMATED GLOMERULAR FILTRATION RATE 98 mL/min/1.73m??? Normal >=60 [facility] Comment on above: Order Comment: Speci men Type: BLOOD SPECIMENOrdering Facility: [facility] Address: [address] [place] [address] Result Comment: Luzmaria mated Glomerular Filtration Rate [...] , 2776-05 ####[facility] LABORATORYCLIA [id number] [place] [address] [place] Glucose [Mass/Vol] 125 mg/dL High 74-99 [facility] Comment on above: Order Comment: Shira feldman Type: BLOOD SPECIMENOrdering Facility: [facility] Address: [address] [place] [address] Result Comment: The [place] (ADA) [...] , 2776-05 ####[facility] LABORATORYCLIA [id number] [place] [address] [place] Potassium [Moles/Vol] 4.4 mmol/L Normal 3.7-5.1 [facility] Comment on above: Order Comment: Shira feldman Type: BLOOD SPECIMENOrdering Facility: [facility] Address: [address] [place] [address] Performed By: #### 2 4321-2, , 2776-05 ####[facility] LABORATORYCLIA [id number] [place] [address] [place] Sodium [Moles/Vol] 143 mmol/L Normal 136-144 [facility] Comment on above: Order Comment: Speci men Type: BLOOD SPECIMENOrdering Facility: [facility] Address: [address] [place] [address] Performed By: #### 2 4321-2, , 2776-05 ####[facility] LABORATORYCLIA [id number] [address] STATES [facility] Urea nitrogen [Mass/Vol] 33 mg/dL High 9-24 [facility] Comment on above: Order Comment: Speci men Type: BLOOD SPECIMENOrdering Facility: [facility] Address: [address] [place] [address] Performed By: #### 2 4321-2, , 2776-05 ####[facility] LABORATORYCLIA [id number] [address] [place] CASE MANAGEMon 07-18-2021 CASE MANAGEM Normal [facility] CBC W Auto Differential pane l (Bld)on 07-18-2021 Basophils (Bld) [#/Vol] 0.05 10*3/uL Normal <0.11 [facility] Comment on above: Order Comment: Speci men Type: BLOOD SPECIMENOrdering Facility: [facility] Address: [address] [place] [address] Performed By: #### 5 7021-8 ####[facility] LABORATORYCLIA [id number] [address] STATES [facility] Basophils/100 WBC (Bld) 0.5 % Normal [facility] Comment on above: Order Comment: Speci men Type: BLOOD SPECIMENOrdering Facility: [facility] Address: [address] [place] [address] Performed By: #### 5 7021-8 ####[facility] LABORATORYCLIA [id number] [address] STATES OF [facility] Differential cell count method Nom (Bld) Auto Normal [facility] Comment on above: Order Comment: Speci men Type: BLOOD SPECIMENOrdering Facility: [facility] Address: [address] [place] [address] Performed By: #### 5 7021-8 ####[facility]ORATORYCLIA [id number] [address] [place] Eosinophils (Bld) [#/Vol] 0.44 10*3/uL Normal <0.46 [facility] Comment on above: Order Comment: Speci men Type: BLOOD SPECIMENOrdering Facility: [facility] Address: [address] [place] [address] Performed By: #### 5 7021-8 ####[facility]ORATORYCLIA [id number] [address] Eosinophils/100 WBC (Bld) 4.3 % Normal [facility] Comment on above: Order Comment: Speci men Type: BLOOD SPECIMENOrdering Facility: [facility] Address: [address] [place] [address] Performed By: #### 5 7021-8 ####[facility]ORATORYCLIA [id number] [address] Erythrocyte distribution width (RBC) [Ratio] 16.6 % High 11.5-15.0 [facility] Comment on above: Order Comment: Speci men Type: BLOOD SPECIMENOrdering Facility: [facility] Address: [address] [place] [address] Performed By: #### 5 7021-8 ####[facility]ORATORYCLIA [id number] [address] Hematocrit (Bld) [Volume fraction] 32.2 % Low 39.0-51.0 [facility] Comment on above: Order Comment: Speci men Type: BLOOD SPECIMENOrdering Facility: [facility] Address: [address] [place] [address] Performed By: #### 5 7021-8 ####[facility]ORATORYCLIA [id number] [address] [place] Hemoglobin (Bld) [Mass/Vol] 9.5 g/dL Low 13.0-17.0 [facility] Comment on above: Order Comment: Speci men Type: BLOOD SPECIMENOrdering Facility: [facility] Address: [address] [place] [address] Performed By: #### 5 7021-8 ####[facility]ORATORYCLIA [id number] [address] IMMATURE GRAN % 0.4 % Normal [facility] Comment on above: Order Comment: Speci men Type: BLOOD SPECIMENOrdering Facility: [facility] Address: [address] [place] [address] Performed By: #### 5 7021-8 ####[facility]ORATORYCLIA [id number] [address] IMMATURE GRAN ABS 0.04 k/uL Normal <0.10 [facility] Comment on above: Order Comment: Speci men Type: BLOOD SPECIMENOrdering Facility: [facility] Address: [address] [place] [address] Performed By: #### 5 7021-8 ####[facility]ORATORYCLIA [id number] [address] Lymphocytes (Bld) [#/Vol] 1.71 10*3/uL Normal 1.00-4.00 [facility] Comment on above: Order Comment: Speci men Type: BLOOD SPECIMENOrdering Facility: [facility] Address: [address] [place] [address] Performed By: #### 5 7021-8 ####[facility]ORATORYCLIA [id number] [address] Lymphocytes/100 WBC (Bld) 16.9 % Normal [facility] Comment on above: Order Comment: Speci men Type: BLOOD SPECIMENOrdering Facility: [facility] Address: [address] [place] [address] Performed By: #### 5 7021-8 ####[facility]ORATORYCLIA [id number] [address] MCH (RBC) [Entitic mass] 27.9 pg Normal 26.0-34.0 [facility] Comment on above: Order Comment: Speci men Type: BLOOD SPECIMENOrdering Facility: [facility] Address: [address] [place] [address] Performed By: #### 5 7021-8 ####[facility] LABORATORYCLIA [id number] [address] STATES [facility] MCHC (RBC) [Mass/Vol] 29.5 g/dL Low 30.5-36.0 [facility] Comment on above: Order Comment: Speci men Type: BLOOD SPECIMENOrdering Facility: [facility] Address: [address] [place] [address] Performed By: #### 5 7021-8 ####[facility] LABORATORYCLIA [id number] [address] STATES OF [facility] MCV (RBC) [Entitic vol] 94.7 fL Normal 80.0-100.0 [facility] Comment on above: Order Comment: Speci men Type: BLOOD SPECIMENOrdering Facility: [facility] Address: [address] [place] [address] Performed By: #### 5 7021-8 ####[facility]ORATORYCLIA [id number] [address] Monocytes (Bld) [#/Vol] 0.69 10*3/uL Normal <0.87 [facility] Comment on above: Order Comment: Speci men Type: BLOOD SPECIMENOrdering Facility: [facility] Address: [address] [place] [address] Performed By: #### 5 7021-8 ####[facility]ORATORYCLIA [id number] [address] Monocytes/100 WBC (Bld) 6.8 % Normal [facility] Comment on above: Order Comment: Speci men Type: BLOOD SPECIMENOrdering Facility: [facility] Address: [address] [place] [address] Performed By: #### 5 7021-8 ####[facility]ORATORYCLIA [id number] [place] [address] [place] Neutrophils (Bld) [#/Vol] 7.19 10*3/uL Normal 1.45-7.50 [facility] Comment on above: Order Comment: Speci men Type: BLOOD SPECIMENOrdering Facility: [facility] Address: [address] [place] [address] Performed By: #### 5 7021-8 ####[facility]ORATORYCLIA [id number] [address] [place] Neutrophils/100 WBC (Bld) 71.1 % Normal [facility] Comment on above: Order Comment: Speci men Type: BLOOD SPECIMENOrdering Facility: [facility] Address: [address] [place] [address] Performed By: #### 5 7021-8 ####[facility]ORATORYCLIA [id number] [address] [place] Nucleated RBC (Bld) [#/Vol] 10*3/uL Normal <0.01 [facility] Comment on above: Order Comment: Speci men Type: BLOOD SPECIMENOrdering Facility: [facility] Address: [address] [place] [address] Performed By: #### 5 7021-8 ####[facility]ORATORYCLIA [id number] [address] [place] Nucleated RBC/100 WBC (Bld) [Ratio] 0.0 /100 WBC Normal [facility] Comment on above: Order Comment: Speci men Type: BLOOD SPECIMENOrdering Facility: [facility] Address: [address] [place] [address] Performed By: #### 5 7021-8 ####[facility]ORATORYCLIA [id number] [address] [place] Platelet mean volume (Bld) [Entitic vol] 10.3 fL Normal 9.0-12.7 [facility] Comment on above: Order Comment: Speci men Type: BLOOD SPECIMENOrdering Facility: [facility] Address: [address] [place] [address] Performed By: #### 5 7021-8 ####[facility]ORATORYCLIA [id number] [address] Platelets (Bld) [#/Vol] 403 10*3/uL High 150-400 [facility] Comment on above: Order Comment: Speci men Type: BLOOD SPECIMENOrdering Facility: [facility] Address: [address] [place] [address] Performed By: #### 5 7021-8 ####[facility]ORATORYCLIA [id number] [address] [place] RBC (Bld) [#/Vol] 3.40 10*6/uL Low 4.20-6.00 [facility] Comment on above: Order Comment: Speci men Type: BLOOD SPECIMENOrdering Facility: [facility] Address: [address] [place] [address] Performed By: #### 5 7021-8 ####[facility] LABORATORYCLIA [id number] [address] OF [facility] WBC (Bld) [#/Vol] 10.12 10*3/uL Normal 3.70-11.00 [facility] Comment on above: Order Comment: Speci men Type: BLOOD SPECIMENOrdering Facility: [facility] Address: [address] [place] [address] Performed By: #### 5 7021-8 ####[facility]ORATORYCLIA [id number] [address] Magnesium SerPl-mCncon 07-18 Magnesium [Mass/Vol] 2.4 mg/dL High 1.7-2.3 [facility] Comment on above: Order Comment: Speci men Type: BLOOD SPECIMENOrdering Facility: [facility] Address: [address] [place] [address] Performed By: #### 2 4321-2, 39530-4, 2777-1 ####[facility]ORATORYCLIA [id number] [address] [place] NURSING PROGon 07-18-2021 NURSING PROG Normal [facility] NURSING PROG Normal [facility] Phosphate SerPl-mCncon 07-18 Phosphate [Mass/Vol] 3.9 mg/dL Normal 2.7-4.8 [facility] Comment on above: Order Comment: Speci men Type: BLOOD SPECIMENOrdering Facility: [facility] Address: [address] [place] [address] Performed By: #### 2 4321-2, 30039-7, 2777-1 ####[facility]ORATORYCLIA [id number] [address] THERAPY NTon 07-18-2021 THERAPY NT Normal [facility] aPTT PPPon 07-18-2021 aPTT Coag (PPP) [Time] 52.3 s High 23.0-32.4 [facility] Comment on above: Order Comment: Speci men Type: BLOOD SPECIMENOrdering Facility: [facility] Address: [address] [place] [address] Performed By: #### 1 4979-9 ####[facility] LABORATORYCLIA [id number] [address] STATES OF [facility] CBC W Auto Differential pane l (Bld)on 07-17-2021 Basophils (Bld) [#/Vol] 0.05 10*3/uL Normal <0.11 [facility] Comment on above: Order Comment: Speci men Type: BLOOD SPECIMENOrdering Facility: [facility] Address: [address] [place] [address] Performed By: #### 5 7021-8 ####[facility]ORATORYCLIA [id number] [address] Basophils/100 WBC (Bld) 0.5 % Normal [facility] Comment on above: Order Comment: Speci men Type: BLOOD SPECIMENOrdering Facility: [facility] Address: [address] [place] [address] Performed By: #### 5 7021-8 ####[facility]ORATORYCLIA [id number] [address] Differential cell count method Nom (Bld) Auto Normal [facility] Comment on above: Order Comment: Speci men Type: BLOOD SPECIMENOrdering Facility: [facility] Address: [address] [place] [address] Performed By: #### 5 7021-8 ####[facility] LABORATORYCLIA [id number] [address] [place] Eosinophils (Bld) [#/Vol] 0.32 10*3/uL Normal <0.46 [facility] Comment on above: Order Comment: Speci men Type: BLOOD SPECIMENOrdering Facility: [facility] Address: [address] [place] [address] Performed By: #### 5 7021-8 ####[facility]ORATORYCLIA [id number] [address] Eosinophils/100 WBC (Bld) 3.4 % Normal [facility] Comment on above: Order Comment: Speci men Type: BLOOD SPECIMENOrdering Facility: [facility] Address: [address] [place] [address] Performed By: #### 5 7021-8 ####[facility] LABORATORYCLIA [id number] [address] [place] Erythrocyte distribution width (RBC) [Ratio] 16.6 % High 11.5-15.0 [facility] Comment on above: Order Comment: Speci men Type: BLOOD SPECIMENOrdering Facility: [facility] Address: [address] [place] [address] Performed By: #### 5 7021-8 ####[facility]ORATORYCLIA [id number] [address] [place] Hematocrit (Bld) [Volume fraction] 30.7 % Low 39.0-51.0 [facility] Comment on above: Order Comment: Speci men Type: BLOOD SPECIMENOrdering Facility: [facility] Address: [address] [place] [address] Performed By: #### 5 7021-8 ####[facility]ORATORYCLIA [id number] [address] [place] Hemoglobin (Bld) [Mass/Vol] 9.0 g/dL Low 13.0-17.0 [facility] Comment on above: Order Comment: Speci men Type: BLOOD SPECIMENOrdering Facility: [facility] Address: [address] [place] [address] Performed By: #### 5 7021-8 ####[facility]ORATORYCLIA [id number] [address] IMMATURE GRAN % 0.6 % Normal [facility] Comment on above: Order Comment: Speci men Type: BLOOD SPECIMENOrdering Facility: [facility] Address: [address] [place] [address] Performed By: #### 5 7021-8 ####[facility]ORATORYCLIA [id number] [address] IMMATURE GRAN ABS 0.06 k/uL Normal <0.10 [facility] Comment on above: Order Comment: Speci men Type: BLOOD SPECIMENOrdering Facility: [facility] Address: [address] [place] [address] Performed By: #### 5 7021-8 ####[facility] LABORATORYCLIA [id number] [address] [place] Lymphocytes (Bld) [#/Vol] 1.61 10*3/uL Normal 1.00-4.00 [facility] Comment on above: Order Comment: Speci men Type: BLOOD SPECIMENOrdering Facility: [facility] Address: [address] [place] [address] Performed By: #### 5 7021-8 ####[facility]ORATORYCLIA [id number] [address] Lymphocytes/100 WBC (Bld) 17.3 % Normal [facility] Comment on above: Order Comment: Speci men Type: BLOOD SPECIMENOrdering Facility: [facility] Address: [address] [place] [address] Performed By: #### 5 7021-8 ####[facility] LABORATORYCLIA [id number] [address] STATES OF [facility] MCH (RBC) [Entitic mass] 26.9 pg Normal 26.0-34.0 [facility] Comment on above: Order Comment: Speci men Type: BLOOD SPECIMENOrdering Facility: [facility] Address: [address] [place] [address] Performed By: #### 5 7021-8 ####[facility] LABORATORYCLIA [id number] [address] [place] MCHC (RBC) [Mass/Vol] 29.3 g/dL Low 30.5-36.0 [facility] Comment on above: Order Comment: Speci men Type: BLOOD SPECIMENOrdering Facility: [facility] Address: [address] [place] [address] Performed By: #### 5 7021-8 ####[facility] LABORATORYCLIA [id number] [address] MCV (RBC) [Entitic vol] 91.9 fL Normal 80.0-100.0 [facility] Comment on above: Order Comment: Speci men Type: BLOOD SPECIMENOrdering Facility: [facility] Address: [id number] [place] [address] Performed By: #### 5 7021-8 ####[facility] LABORATORYCLIA [id number] [address] Monocytes (Bld) [#/Vol] 0.61 10*3/uL Normal <0.87 [facility] Comment on above: Order Comment: Speci men Type: BLOOD SPECIMENOrdering Facility: [facility] Address: [address] [place] [address] Performed By: #### 5 7021-8 ####[facility]ORATORYCLIA [id number] [address] [place] Monocytes/100 WBC (Bld) 6.6 % Normal [facility] Comment on above: Order Comment: Speci men Type: BLOOD SPECIMENOrdering Facility: [facility] Address: [address] [place] [address] Performed By: #### 5 7021-8 ####[facility]ORATORYCLIA [id number] [place] [address] [place] Neutrophils (Bld) [#/Vol] 6.64 10*3/uL Normal 1.45-7.50 [facility] Comment on above: Order Comment: Speci men Type: BLOOD SPECIMENOrdering Facility: [facility] Address: [address] [place] [address] Performed By: #### 5 7021-8 ####[facility]ORATORYCLIA [id number] [address] Neutrophils/100 WBC (Bld) 71.6 % Normal [facility] Comment on above: Order Comment: Speci men Type: BLOOD SPECIMENOrdering Facility: [facility] Address: [address] [place] [address] Performed By: #### 5 7021-8 ####[facility]ORATORYCLIA [id number] [address] [place] Nucleated RBC (Bld) [#/Vol] 10*3/uL Normal <0.01 [facility] Comment on above: Order Comment: Speci men Type: BLOOD SPECIMENOrdering Facility: [facility] Address: [address] [place] [address] Performed By: #### 5 7021-8 ####[facility]ORATORYCLIA [id number] [address] [place] Nucleated RBC/100 WBC (Bld) [Ratio] 0.0 /100 WBC Normal [facility] Comment on above: Order Comment: Speci men Type: BLOOD SPECIMENOrdering Facility: [facility] Address: [address] Performed By: #### 5 7021-8 ####[facility] LABORATORYCLIA [id number] [address] STATES [facility] Platelet mean volume (Bld) [Entitic vol] 10.1 fL Normal 9.0-12.7 [facility] Comment on above: Order Comment: Speci men Type: BLOOD SPECIMENOrdering Facility: [facility] Address: [address] [place] [address] Performed By: #### 5 7021-8 ####[facility] LABORATORYCLIA [id number] [address] [place] Platelets (Bld) [#/Vol] 387 10*3/uL Normal 150-400 [facility] Comment on above: Order Comment: Speci men Type: BLOOD SPECIMENOrdering Facility: [facility] Address: [address] [place] [address] Performed By: #### 5 7021-8 ####[facility] LABORATORYCLIA [id number] [address] [place] RBC (Bld) [#/Vol] 3.34 10*6/uL Low 4.20-6.00 [facility] Comment on above: Order Comment: Speci men Type: BLOOD SPECIMENOrdering Facility: [facility] Address: [address] [place], [place] [address] Performed By: #### 5 7021-8 ####[facility]ORATORYCLIA [id number] [address] [place] WBC (Bld) [#/Vol] 9.29 10*3/uL Normal 3.70-11.00 [facility] Comment on above: Order Comment: Speci men Type: BLOOD SPECIMENOrdering Facility: [facility] Address: [address] [place] [address] Performed By: #### 5 7021-8 ####[facility] LABORATORYCLIA [id number] [address] [place] CONSULT PROGon 07-17-2021 CONSULT PROG Normal [facility] Magnesium SerPl-mCncon 07-17 Magnesium [Mass/Vol] 2.3 mg/dL Normal 1.7-2.3 [facility] Comment on above: Order Comment: Speci men Type: BLOOD SPECIMENOrdering Facility: [facility] Address: [address] [place] [address] Performed By: #### 2 777-1, 41463-9 ####[facility] LABORATORYCLIA [id number] [address] NURSING PROGon 07-17-2021 NURSING PROG Normal [facility] NURSING PROG Normal [facility] NURSING PROG Normal [facility] Phosphate SerPl-mCncon 07-17 Phosphate [Mass/Vol] 3.6 mg/dL Normal 2.7-4.8 [facility] Comment on above: Order Comment: Speci men Type: BLOOD SPECIMENOrdering Facility: [facility] Address: [address] [place] [address] Performed By: #### 2 777-1, 08974-7 ####[facility]ORATORYCLIA [id number] [address] aPTT PPPon 07-17-2021 aPTT Coag (PPP) [Time] 57.2 s High 23.0-32.4 [facility] Comment on above: Order Comment: Speci men Type: BLOOD SPECIMENOrdering Facility: [facility] Address: [address] [place] [address] Performed By: #### 1 4979-9 ####[facility]ORATORYCLIA [id number] [address] [place] Basic metabolic 2000 panelon 07-16-2021 Anion gap [Moles/Vol] 5 mmol/L Low 9-18 [facility] Comment on above: Order Comment: Speci men Type: BLOOD SPECIMENOrdering Facility: [facility] Address: [address] [place], [place] [address] Performed By: #### 2 777-1, 87963-9, ####[facility] LABORATORYCLIA [id number] [place] [address] [place] Calcium [Mass/Vol] 9.1 mg/dL Normal 8.5-10.2 [facility] Comment on above: Order Comment: Speci men Type: BLOOD SPECIMENOrdering Facility: [facility] Address: [address] [place] [address] Performed By: #### 2 777-1, 38670-7, ####[facility]ORATORYCLIA [id number] [place] [address] [place] Chloride [Moles/Vol] 101 mmol/L Normal 97-105 [facility] Comment on above: Order Comment: Speci men Type: BLOOD SPECIMENOrdering Facility: [facility] Address: [address] [place] [address] Performed By: #### 2 777-1, , ####[facility] LABORATORYCLIA [id number] [place] [address] [place] CO2 [Moles/Vol] 35 mmol/L High 22-30 [facility] Comment on above: Order Comment: Speci men Type: BLOOD SPECIMENOrdering Facility: [facility] Address: [address] [place] [address] Performed By: #### 2 777-1, , ####[facility]ORATORYCLIA [id number] [place] [address] [place] Creatinine [Mass/Vol] 0.73 mg/dL Normal 0.73-1.22 [facility] Comment on above: Order Comment: Speci men Type: BLOOD SPECIMENOrdering Facility: [facility] Address: [address] [place] [address] Performed By: #### 2 777-1, 94102-6, ####[facility]ORATORYCLIA [id number] [place] [address] [place] ESTIMATED GLOMERULAR FILTRATION RATE 98 mL/min/1.73m??? Normal >=60 [facility] Comment on above: Order Comment: Shira feldman Type: BLOOD SPECIMENOrdering Facility: [facility] Address: [address] [place], [place] [address] Result Comment: Luzmaria mated Glomerular Filtration Rate [...] actual GFR. Performed By: #### 2 777-1, 90560-5, ####[facility] LABORATORYCLIA [id number] [place] [id number] [place] Glucose [Mass/Vol] 133 mg/dL High 74-99 [facility] Comment on above: Order Comment: Shira feldman Type: BLOOD SPECIMENOrdering Facility: [facility] Address: [address] [place] [address] Result Comment: The [place] [employer] (ADA) [...] 2016.39(Suppl 1). Performed By: #### 2 777-1, 76522-9, ####[facility]ORATORYCLIA [id number] [place] [address] [place] Potassium [Moles/Vol] 4.2 mmol/L Normal 3.7-5.1 [facility] Comment on above: Order Comment: Speci men Type: BLOOD SPECIMENOrdering Facility: [facility] Address: [address] [place] [address] Performed By: #### 2 777-1, 33012-7, ####[facility]ORATORYCLIA [id number] [place] [address] [place] Sodium [Moles/Vol] 141 mmol/L Normal 136-144 [facility] Comment on above: Order Comment: Speci men Type: BLOOD SPECIMENOrdering Facility: [facility] Address: [address] [place] [address] Performed By: #### 2 777-1, , ####[facility]ORATORYCLIA [id number] [address] [place] Urea nitrogen [Mass/Vol] 21 mg/dL Normal 9-24 [facility] Comment on above: Order Comment: Speci men Type: BLOOD SPECIMENOrdering Facility: [facility] Address: [address] [place] [address] Performed By: #### 2 777-1, , ####[facility]ORATORYCLIA [id number] [address] [place] CBC W Auto Differential pane l (Bld)on 07-16-2021 Basophils (Bld) [#/Vol] 0.06 10*3/uL Normal <0.11 [facility] Comment on above: Order Comment: Speci men Type: BLOOD SPECIMENOrdering Facility: [facility] Address: [address] [place] [address] Performed By: #### 5 7021-8 ####[facility]ORATORYCLIA [id number] [address] [place] Basophils/100 WBC (Bld) 0.7 % Normal [facility] Comment on above: Order Comment: Speci men Type: BLOOD SPECIMENOrdering Facility: [facility] Address: [address] [place] [address] Performed By: #### 5 7021-8 ####[facility]ORATORYCLIA [id number] [address] Differential cell count method Nom (Bld) Auto Normal [facility] Comment on above: Order Comment: Speci men Type: BLOOD SPECIMENOrdering Facility: [facility] Address: [address] [place] [address] Performed By: #### 5 7021-8 ####[facility]ORATORYCLIA [id number] [address] [place] Eosinophils (Bld) [#/Vol] 0.35 10*3/uL Normal <0.46 [facility] Comment on above: Order Comment: Speci men Type: BLOOD SPECIMENOrdering Facility: [facility] Address: [address] [place] [address] Performed By: #### 5 7021-8 ####[facility]ORATORYCLIA [id number] [address] Eosinophils/100 WBC (Bld) 3.9 % Normal [facility] Comment on above: Order Comment: Speci men Type: BLOOD SPECIMENOrdering Facility: [facility] Address: [address] [place] [address] Performed By: #### 5 7021-8 ####[facility]ORATORYCLIA [id number] [address] [place] Erythrocyte distribution width (RBC) [Ratio] 16.5 % High 11.5-15.0 [facility] Comment on above: Order Comment: Speci men Type: BLOOD SPECIMENOrdering Facility: [facility] Address: [address] [place] [address] Performed By: #### 5 7021-8 ####[facility]ORATORYCLIA [id number] [address] [place] Hematocrit (Bld) [Volume fraction] 30.9 % Low 39.0-51.0 [facility] Comment on above: Order Comment: Speci men Type: BLOOD SPECIMENOrdering Facility: [facility] Address: [address] [place] [address] Performed By: #### 5 7021-8 ####[facility]ORATORYCLIA [id number] [address] [place] Hemoglobin (Bld) [Mass/Vol] 9.1 g/dL Low 13.0-17.0 [facility] Comment on above: Order Comment: Speci men Type: BLOOD SPECIMENOrdering Facility: [facility] Address: [address] [place] [address] Performed By: #### 5 7021-8 ####[facility]ORATORYCLIA [id number] [address] IMMATURE GRAN % 0.4 % Normal [facility] Comment on above: Order Comment: Speci men Type: BLOOD SPECIMENOrdering Facility: [facility] Address: [address] [place] [address] Performed By: #### 5 7021-8 ####[facility]ORATORYCLIA [id number] [address] IMMATURE GRAN ABS 0.04 k/uL Normal <0.10 [facility] Comment on above: Order Comment: Speci men Type: BLOOD SPECIMENOrdering Facility: [facility] Address: [address] [place] [address] Performed By: #### 5 7021-8 ####[facility]ORATORYCLIA [id number] [address] [place] Lymphocytes (Bld) [#/Vol] 1.35 10*3/uL Normal 1.00-4.00 [facility] Comment on above: Order Comment: Speci men Type: BLOOD SPECIMENOrdering Facility: [facility] Address: [address] [place] [address] Performed By: #### 5 7021-8 ####[facility]ATORYCLIA [id number] [address] Lymphocytes/100 WBC (Bld) 15.0 % Normal [facility] Comment on above: Order Comment: Speci men Type: BLOOD SPECIMENOrdering Facility: [facility] Address: [address] [place] [address] Performed By: #### 5 7021-8 ####[facility]ORATORYCLIA [id number] [address] STATES OF [facility] MCH (RBC) [Entitic mass] 27.1 pg Normal 26.0-34.0 [facility] Comment on above: Order Comment: Speci men Type: BLOOD SPECIMENOrdering Facility: [facility] Address: [address] [place] [address] Performed By: #### 5 7021-8 ####[facility]ORATORYCLIA [id number] [address] MCHC (RBC) [Mass/Vol] 29.4 g/dL Low 30.5-36.0 [facility] Comment on above: Order Comment: Speci men Type: BLOOD SPECIMENOrdering Facility: [facility] Address: [address] [place] [address] Performed By: #### 5 7021-8 ####[facility]ORATORYCLIA [id number] [address] MCV (RBC) [Entitic vol] 92.0 fL Normal 80.0-100.0 [facility] Comment on above: Order Comment: Speci men Type: BLOOD SPECIMENOrdering Facility: [facility] Address: [address] [place] [address] Performed By: #### 5 7021-8 ####[facility]ORATORYCLIA [id number] [address] Monocytes (Bld) [#/Vol] 0.53 10*3/uL Normal <0.87 [facility] Comment on above: Order Comment: Speci men Type: BLOOD SPECIMENOrdering Facility: [facility] Address: [address] [place] [address] Performed By: #### 5 7021-8 ####[facility]ORATORYCLIA [id number] [address] [place] Monocytes/100 WBC (Bld) 5.9 % Normal [facility] Comment on above: Order Comment: Speci men Type: BLOOD SPECIMENOrdering Facility: [facility] Address: [address] [place] [address] Performed By: #### 5 7021-8 ####[facility]ORYCLIA [id number] [address] [place] Neutrophils (Bld) [#/Vol] 6.67 10*3/uL Normal 1.45-7.50 [facility] Comment on above: Order Comment: Speci men Type: BLOOD SPECIMENOrdering Facility: [facility] Address: [address] [place] [address] Performed By: #### 5 7021-8 ####[facility]ATORYCLIA [id number] [address] Neutrophils/100 WBC (Bld) 74.1 % Normal [facility] Comment on above: Order Comment: Speci men Type: BLOOD SPECIMENOrdering Facility: [facility] Address: [address] [place] [address] Performed By: #### 5 7021-8 ####[facility]ORATORYCLIA [id number] [address] [place] Nucleated RBC (Bld) [#/Vol] 10*3/uL Normal <0.01 [facility] Comment on above: Order Comment: Speci men Type: BLOOD SPECIMENOrdering Facility: [facility] Address: [address] [place] [address] Performed By: #### 5 7021-8 ####[facility]ATORYCLIA [id number] [address] [place] Nucleated RBC/100 WBC (Bld) [Ratio] 0.0 /100 WBC Normal [facility] Comment on above: Order Comment: Speci men Type: BLOOD SPECIMENOrdering Facility: [facility] Address: [address] [place], [place] [address] Performed By: #### 5 7021-8 ####[facility]ORATORYCLIA [id number] [address] [place] Platelet mean volume (Bld) [Entitic vol] 9.9 fL Normal 9.0-12.7 [facility] Comment on above: Order Comment: Speci men Type: BLOOD SPECIMENOrdering Facility: [facility] Address: [address] [place], [place] [address] Performed By: #### 5 7021-8 ####[facility]ORATORYCLIA [id number] [address] [place] Platelets (Bld) [#/Vol] 391 10*3/uL Normal 150-400 [facility] Comment on above: Order Comment: Speci men Type: BLOOD SPECIMENOrdering Facility: [facility] Address: [address] [place] [address] Performed By: #### 5 7021-8 ####[facility]ORATORYCLIA [id number] [place] [address] [place] RBC (Bld) [#/Vol] 3.36 10*6/uL Low 4.20-6.00 [facility] Comment on above: Order Comment: Speci men Type: BLOOD SPECIMENOrdering Facility: [facility] Address: [address] [place], [place] [address] Performed By: #### 5 7021-8 ####[facility]ORATORYCLIA [id number] [place] [address] [place] WBC (Bld) [#/Vol] 9.00 10*3/uL Normal 3.70-11.00 [facility] Comment on above: Order Comment: Speci men Type: BLOOD SPECIMENOrdering Facility: [facility] Address: [address] [place] [address] Performed By: #### 5 7021-8 ####[facility]ATORYCLIA [id number] [address] CONSULT PROGon 07-16-2021 CONSULT PROG Normal [facility] CONSULT PROG Normal [facility] Magnesium SerPl-mCncon 07-16 Magnesium [Mass/Vol] 2.3 mg/dL Normal 1.7-2.3 [facility] Comment on above: Order Comment: Speci men Type: BLOOD SPECIMENOrdering Facility: [facility] Address: [address] [place] [address] Performed By: #### 2 777-1, 72875-1, ####[facility]ATORYCLIA [id number] [address] NURSING PROGon 07-16-2021 NURSING PROG Normal [facility] Phosphate SerPl-mCncon 07-16 Phosphate [Mass/Vol] 3.6 mg/dL Normal 2.7-4.8 [facility] Comment on above: Order Comment: Speci men Type: BLOOD SPECIMENOrdering Facility: [facility] Address: [address] [place] [address] Performed By: #### 2 777-1, 74814-9, ####[facility]ORATORYCLIA [id number] [address] Vancomycin random [Mass/Vol] on 07-16-2021 Vancomycin [Mass/Vol] 16.9 ug/mL Normal 10.0-20.0 [facility] Comment on above: Order Comment: Speci men Type: BLOOD SPECIMENOrdering Facility: [facility] Address: [address] [place] [address] Result Comment: Refe rence ranges and high/low indicator flags are provided as general guidelines only. The treating physician must determine appropriate target levels/dosing based on the specific clinical situation. Performed By: #### 4 091-5 ####[facility]ORATORYCLIA [id number] [address] [place] aPTT PPPon 07-16-2021 aPTT Coag (PPP) [Time] 57.2 s High 23.0-32.4 [facility] Comment on above: Order Comment: Speci men Type: BLOOD SPECIMENOrdering Facility: [facility] Address: [address] [place] [address] Performed By: #### 1 4979-9 ####[facility]ORATORYCLIA [id number] [place] [id number] [place] ALLIED HEALTHon 07-15-2021 ALLIED HEALTH Normal [facility] Basic metabolic 2000 panelon 07-15-2021 Anion gap [Moles/Vol] 11 mmol/L Normal 9-18 [facility] Comment on above: Order Comment: Speci men Type: BLOOD SPECIMENOrdering Facility: [facility] Address: [address] [place] [address] Performed By: #### 2 4321-2, , 2776-05 ####[facility]ORATORYCLIA [id number] [place] [address] [place] Calcium [Mass/Vol] 8.8 mg/dL Normal 8.5-10.2 [facility] Comment on above: Order Comment: Speci men Type: BLOOD SPECIMENOrdering Facility: [facility] Address: [address] [place] [address] Performed By: #### 2 4321-2, , 2776-05 ####[facility]ORATORYCLIA [id number] [place] [address] [place] Chloride [Moles/Vol] 101 mmol/L Normal 97-105 [facility] Comment on above: Order Comment: Speci men Type: BLOOD SPECIMENOrdering Facility: [facility] Address: [address] [place] [address] Performed By: #### 2 4321-2, , 2776-05 ####[facility]ORATORYCLIA [id number] [place] [address] [place] CO2 [Moles/Vol] 31 mmol/L High 22-30 [facility] Comment on above: Order Comment: Speci men Type: BLOOD SPECIMENOrdering Facility: [facility] Address: [address] [place] [address] Performed By: #### 2 4321-2, , 2776-05 ####[facility]ITALCLIA [id number] [place] [address] [place] Creatinine [Mass/Vol] 0.76 mg/dL Normal 0.73-1.22 [facility] Comment on above: Order Comment: Speci men Type: BLOOD SPECIMENOrdering Facility: [facility] Address: [address] [place] [address] Performed By: #### 2 4321-2, , 2776-05 ####[facility] HOSPITALIA [id number] [address] [place] ESTIMATED GLOMERULAR FILTRATION RATE 97 mL/min/1.73m??? Normal >=60 [facility] Comment on above: Order Comment: Speccara men Type: BLOOD SPECIMENOrdering Facility: [facility] Address: [address] [place] [address] Result Comment: Luzmaria mated Glomerular Filtration Rate [...] 4321-2, , 2776-05 ####[facility] LABORATORYIA [id number] [place] [address] [place] Glucose [Mass/Vol] 115 mg/dL High 74-99 [facility] Comment on above: Order Comment: Johni francia Type: BLOOD SPECIMENOrdering Facility: [facility] Address: [address] [place] [address] Result Comment: The [place] [employer] (ADA) [...] , 2776-05 ####[facility] LABORATORYCLIA [id number] [place] [address] [place] Potassium [Moles/Vol] 4.0 mmol/L Normal 3.7-5.1 [facility] Comment on above: Order Comment: Shira feldman Type: BLOOD SPECIMENOrdering Facility: [facility] Address: [address] [place] [address] Performed By: #### 2 4320-2, , 2776-05 ####[facility]PITALCLIA [id number] [place] [address] [place] Sodium [Moles/Vol] 143 mmol/L Normal 136-144 [facility] Comment on above: Order Comment: Shira feldman Type: BLOOD SPECIMENOrdering Facility: [facility] Address: [address] [place] [address] Performed By: #### 2 4321-2, , 2776-05 ####[facility]ORATORYCLIA [id number] [place] [address] [place] Urea nitrogen [Mass/Vol] 17 mg/dL Normal 9-24 [facility] Comment on above: Order Comment: Shira feldman Type: BLOOD SPECIMENOrdering Facility: [facility] Address: [address] [address] Performed By: #### 2 4321-2, , 2776-05 ####[facility]ORATORYCLIA [id number] [address] [place] CASE MANAGEMon 07-15-2021 CASE MANAGEM Normal [facility] CBC panel Auto (Bld)on 07-15 Erythrocyte distribution width (RBC) [Ratio] 16.4 % High 11.5-15.0 [facility] Comment on above: Order Comment: Speci men Type: BLOOD SPECIMENOrdering Facility: [facility] Address: [address] [place] [address] Performed By: #### 5 8410-2 ####[facility]ORATORYCLIA [id number] [address] Hematocrit (Bld) [Volume fraction] 30.3 % Low 39.0-51.0 [facility] Comment on above: Order Comment: Speci men Type: BLOOD SPECIMENOrdering Facility: [facility] Address: [address] [place] [address] Performed By: #### 5 8410-2 ####[facility] LABORATORYCLIA [id number] [address] Hemoglobin (Bld) [Mass/Vol] 9.2 g/dL Low 13.0-17.0 [facility] Comment on above: Order Comment: Speci men Type: BLOOD SPECIMENOrdering Facility: [facility] Address: [address] [place] [address] Performed By: #### 5 8410-2 ####[facility] LABORATORYCLIA [id number] [address] [place] MCH (RBC) [Entitic mass] 28.3 pg Normal 26.0-34.0 [facility] Comment on above: Order Comment: Speci men Type: BLOOD SPECIMENOrdering Facility: [facility] Address: [address] [place] [address] Performed By: #### 5 8410-2 ####[facility] LABORATORYCLIA [id number] [address] [place] MCHC (RBC) [Mass/Vol] 30.4 g/dL Low 30.5-36.0 [facility] [facility] Comment on above: Order Comment: Speci men Type: BLOOD SPECIMENOrdering Facility: [facility] Address: [address] [place], [place] [address] Performed By: #### 5 8410-2 ####[facility] LABORATORYCLIA [id number] [address] [place] MCV (RBC) [Entitic vol] 93.2 fL Normal 80.0-100.0 [facility] Comment on above: Order Comment: Speci men Type: BLOOD SPECIMENOrdering Facility: [facility] Address: [address] [place], [place] [address] Performed By: #### 5 8410-2 ####[facility] LABORATORYCLIA [id number] [address] [place] Nucleated RBC (Bld) [#/Vol] 10*3/uL Normal <0.01 [facility] Comment on above: Order Comment: Speci men Type: BLOOD SPECIMENOrdering Facility: [facility] Address: [address] [place] [address] Performed By: #### 5 8410-2 ####[facility] LABORATORYCLIA [id number] [address] [place] Platelet mean volume (Bld) [Entitic vol] 9.9 fL Normal 9.0-12.7 [facility] Comment on above: Order Comment: Speci men Type: BLOOD SPECIMENOrdering Facility: [facility] Address: [address] [place], [place] [address] Performed By: #### 5 8410-2 ####[facility] LABORATORYCLIA [id number] [address] [place] Platelets (Bld) [#/Vol] 381 10*3/uL Normal 150-400 [facility] Comment on above: Order Comment: Speci men Type: BLOOD SPECIMENOrdering Facility: [facility] Address: [address] [place], [place] [address] Performed By: #### 5 8410-2 ####[facility] LABORATORYCLIA [id number] [place] [address] [place] RBC (Bld) [#/Vol] 3.25 10*6/uL Low 4.20-6.00 [facility] Comment on above: Order Comment: Speci men Type: BLOOD SPECIMENOrdering Facility: [facility] Address: [address] [place] [address] Performed By: #### 5 8410-2 ####[facility] LABORATORYCLIA [id number] [address] [place] WBC (Bld) [#/Vol] 8.80 10*3/uL Normal 3.70-11.00 [facility] Comment on above: Order Comment: Speci men Type: BLOOD SPECIMENOrdering Facility: [facility] Address: [address] [place] [address] Performed By: #### 5 8410-2 ####[facility] LABORATORYCLIA [id number] [address] [place] Magnesium SerPl-mCncon 07-15 Magnesium [Mass/Vol] 2.2 mg/dL Normal 1.7-2.3 [facility] Comment on above: Order Comment: Speci men Type: BLOOD SPECIMENOrdering Facility: [facility] Address: [address] [place] [address] Performed By: #### 2 4321-2, 53024-2, 2777-1 ####[facility] LABORATORYCLIA [id number] [place] [address] [place] NURSING PROGon 07-15-2021 NURSING PROG Normal [facility] NURSING PROG Normal [facility] NURSING PROG Normal [facility] NUTRITIONon 07-15-2021 NUTRITION Normal [facility] Phosphate SerPl-mCncon 07-15 Phosphate [Mass/Vol] 3.4 mg/dL Normal 2.7-4.8 [facility] Comment on above: Order Comment: Speci men Type: BLOOD SPECIMENOrdering Facility: [facility] Address: [address] [place] [address] Performed By: #### 2 4321-2, 51547-9, 2777-1 ####[facility] LABORATORYCLIA [id number] [place] [address] [facility] THERAPY NTon 07-15-2021 THERAPY NT Normal [facility] US DVT UPPER LTon 07-15-2021 US DVT UPPER LT Normal [facility] XR CHEST 1V FRONTALon 2021 XR CHEST 1V FRONTAL Normal [facility] aPTT PPPon 07-15-2021 aPTT Coag (PPP) [Time] 59.9 s High 23.0-32.4 [facility] Comment on above: Order Comment: Speci men Type: BLOOD SPECIMENOrdering Facility: [facility] Address: [address] [place] [address] Performed By: #### 1 4979-9 ####[facility] LABORATORYCLIA [id number] [place] [address] [place] Basic metabolic 2000 panelon 07-14-2021 Anion gap [Moles/Vol] 9 mmol/L Normal 9-18 [facility] Comment on above: Order Comment: Speci men Type: BLOOD SPECIMENOrdering Facility: [facility] Address: [address] [place] [address] Performed By: #### 1 9123-9, 2777-1, 53162-1 ####[facility] LABORATORYCLIA [id number] [place] [address] [place] Calcium [Mass/Vol] 8.5 mg/dL Normal 8.5-10.2 [facility] Comment on above: Order Comment: Speci men Type: BLOOD SPECIMENOrdering Facility: [facility] Address: [address] [place] [address] Performed By: #### 1 9123-9, 2777-1, 73634-9 ####[facility] LABORATORYCLIA [id number] [place] [address] [place] Chloride [Moles/Vol] 99 mmol/L Normal 97-105 [facility] Comment on above: Order Comment: Speci men Type: BLOOD SPECIMENOrdering Facility: [facility] Address: [address] [place] [address] Performed By: #### 1 9123-9, 2777, ####[facility]ORATORYCLIA [id number] [address] CO2 [Moles/Vol] 31 mmol/L High 22-30 [facility] Comment on above: Order Comment: Speci men Type: BLOOD SPECIMENOrdering Facility: [facility] Address: [address] [place] [address] Performed By: #### 1 9123-9, 27711-04, ####[facility] LABORATORYCLIA [id number] [address] Creatinine [Mass/Vol] 0.74 mg/dL Normal 0.73-1.22 [facility] Comment on above: Order Comment: Speci men Type: BLOOD SPECIMENOrdering Facility: [facility] Address: [address] [place] [address] Performed By: #### 1 9123-9, 2776-05, ####[facility]ITALCLIA [id number] [address] ESTIMATED GLOMERULAR FILTRATION RATE 98 mL/min/1.73m??? Normal >=60 [facility] Comment on above: Order Comment: Speci men Type: BLOOD SPECIMENOrdering Facility: [facility] Address: [address] [place] [address] Result Comment: Luzmaria mated Glomerular Filtration Rate [...] GFR. Performed By: #### 1 9123-9, 27711-04, 14597-7 ####[facility] LABORATORYCLIA [id number] [place] [address] [place] Glucose [Mass/Vol] 117 mg/dL High 74-99 [facility] Comment on above: Order Comment: Speci men Type: BLOOD SPECIMENOrdering Facility: [facility] Address: [address] [place] [address] Result Comment: The [place] [employer] (ADA) [...] 1). Performed By: #### 1 9123-9, 2777, 55923-0 ####[facility] LABORATORYCLIA [id number] [place] [address] [place] Potassium [Moles/Vol] 3.7 mmol/L Normal 3.7-5.1 [facility] Comment on above: Order Comment: Speci men Type: BLOOD SPECIMENOrdering Facility: [facility] Address: [address] [place], [place] [address] Performed By: #### 1 9123-9, 27711-04, 16859-8 ####[facility] LABORATORYCLIA [id number] [place] [address] [place] Sodium [Moles/Vol] 139 mmol/L Normal 136-144 [facility] Comment on above: Order Comment: Speci men Type: BLOOD SPECIMENOrdering Facility: [facility] Address: [address] [place] [address] Performed By: #### 1 9123-9, 27711-04, 49621-3 ####[facility] LABORATORYCLIA [id number] [address] [place] Urea nitrogen [Mass/Vol] 16 mg/dL Normal 9-24 [facility] Comment on above: Order Comment: Speci men Type: BLOOD SPECIMENOrdering Facility: [facility] Address: [address] [place] [address] Performed By: #### 1 9123-9, 2777-1, 10660-4 ####[facility] LABORATORYCLIA [id number] [address] CBC panel Auto (Bld)on 07-14 Erythrocyte distribution width (RBC) [Ratio] 16.2 % High 11.5-15.0 [facility] Comment on above: Order Comment: Speci men Type: BLOOD SPECIMENOrdering Facility: [facility] Address: [address] [place] [address] Performed By: #### 5 8410-2 ####[facility] LABORATORYCLIA [id number] [address] STATES OF [facility] Hematocrit (Bld) [Volume fraction] 29.7 % Low 39.0-51.0 [facility] Comment on above: Order Comment: Speci men Type: BLOOD SPECIMENOrdering Facility: [facility] Address: [address] [place] [address] Performed By: #### 5 8410-2 ####[facility] LABORATORYCLIA [id number] [address] [place] Hemoglobin (Bld) [Mass/Vol] 8.8 g/dL Low 13.0-17.0 [facility] Comment on above: Order Comment: Speci men Type: BLOOD SPECIMENOrdering Facility: [facility] Address: [address] [place] [address] Performed By: #### 5 8410-2 ####[facility]ORATORYCLIA [id number] [address] [place] MCH (RBC) [Entitic mass] 27.5 pg Normal 26.0-34.0 [facility] Comment on above: Order Comment: Speci men Type: BLOOD SPECIMENOrdering Facility: [facility] Address: [address] [place] [address] Performed By: #### 5 8410-2 ####[facility] LABORATORYCLIA [id number] [address] MCHC (RBC) [Mass/Vol] 29.6 g/dL Low 30.5-36.0 [facility] Comment on above: Order Comment: Speci men Type: BLOOD SPECIMENOrdering Facility: [facility] Address: [address] [place] [address] Performed By: #### 5 8410-2 ####[facility] LABORATORYCLIA [id number] [address] [place] MCV (RBC) [Entitic vol] 92.8 fL Normal 80.0-100.0 [facility] Comment on above: Order Comment: Speci men Type: BLOOD SPECIMENOrdering Facility: [facility] Address: [address] [place] [address] Performed By: #### 5 8410-2 ####[facility]ORATORYCLIA [id number] [address] Nucleated RBC (Bld) [#/Vol] 10*3/uL Normal <0.01 [facility] Comment on above: Order Comment: Speci men Type: BLOOD SPECIMENOrdering Facility: [facility] Address: [address] [place] [address] Performed By: #### 5 8410-2 ####[facility] LABORATORYCLIA [id number] [address] Platelet mean volume (Bld) [Entitic vol] 9.6 fL Normal 9.0-12.7 [facility] Comment on above: Order Comment: Speci men Type: BLOOD SPECIMENOrdering Facility: [facility] Address: [address] [place] [address] Performed By: #### 5 8410-2 ####[facility] LABORATORYCLIA [id number] [place] [address] [place] Platelets (Bld) [#/Vol] 354 10*3/uL Normal 150-400 [facility] Comment on above: Order Comment: Speci men Type: BLOOD SPECIMENOrdering Facility: [facility] Address: [address] [place] [address] Performed By: #### 5 8410-2 ####[facility] LABORATORYCLIA [id number] [place] [address] [place] RBC (Bld) [#/Vol] 3.20 10*6/uL Low 4.20-6.00 [facility] Comment on above: Order Comment: Speci men Type: BLOOD SPECIMENOrdering Facility: [facility] Address: [address] [place] [address] Performed By: #### 5 8410-2 ####[facility] LABORATORYCLIA [id number] [address] STATES OF [facility] WBC (Bld) [#/Vol] 9.41 10*3/uL Normal 3.70-11.00 [facility] Comment on above: Order Comment: Speci men Type: BLOOD SPECIMENOrdering Facility: [facility] Address: [address] [place] [address] Performed By: #### 5 8410-2 ####[facility]ORATORYCLIA [id number] [address] [place] CONSULT PROGon 07-14-2021 CONSULT PROG Normal [facility] Magnesium SerPl-mCncon 07-14 Magnesium [Mass/Vol] 2.2 mg/dL Normal 1.7-2.3 [facility] Comment on above: Order Comment: Speci men Type: BLOOD SPECIMENOrdering Facility: [facility] Address: [address] [place] [address] Performed By: #### 1 9123-9, 2777-1, 84476-7 ####[facility]ORATORYCLIA [id number] [address] [place] NURSING PROGon 07-14-2021 NURSING PROG Normal [facility] Phosphate SerPl-mCncon 07-14 Phosphate [Mass/Vol] 3.6 mg/dL Normal 2.7-4.8 [facility] Comment on above: Order Comment: Speci men Type: BLOOD SPECIMENOrdering Facility: [facility] Address: [address] [place] [address] Performed By: #### 1 9123-9, 2777-1, 86810-5 ####[facility] LABORATORYCLIA [id number] [address] [place] aPTT PPPon 07-14-2021 aPTT Coag (PPP) [Time] 62.9 s High 23.0-32.4 [facility] Comment on above: Order Comment: Speci men Type: BLOOD SPECIMENOrdering Facility: [facility] Address: [address] [place] [address] Performed By: #### 1 4979-9 ####[facility]ORATORYCLIA [id number] [address] [place] aPTT Coag (PPP) [Time] 55.2 s High 23.0-32.4 [facility] Comment on above: Order Comment: Speci men Type: BLOOD SPECIMENOrdering Facility: [facility] Address: [address] [place] [address] Performed By: #### 1 4979-9 ####[facility] LABORATORYCLIA [id number] [place] [address] [place] Basic metabolic 2000 panelon 07-13-2021 Anion gap [Moles/Vol] 10 mmol/L Normal 9-18 [facility] Comment on above: Order Comment: Speci men Type: BLOOD SPECIMENOrdering Facility: [facility] Address: [address] [place] [address] Performed By: #### 1 9123-9, 2777-1, 66779-2 ####[facility]ORATORYCLIA [id number] [address] STATES OF [facility] Calcium [Mass/Vol] 8.5 mg/dL Normal 8.5-10.2 [facility] Comment on above: Order Comment: Speci men Type: BLOOD SPECIMENOrdering Facility: [facility] Address: [address] [place] [address] Performed By: #### 1 9123-9, 2777-1, 48651-6 ####[facility] LABORATORYCLIA [id number] [place] [address] [place] Chloride [Moles/Vol] 98 mmol/L Normal 97-105 [facility] Comment on above: Order Comment: Speci men Type: BLOOD SPECIMENOrdering Facility: [facility] Address: [address] [place] [address] Performed By: #### 1 9123-9, 27711-04, 49302-2 ####[facility]ORATORYCLIA [id number] [address] STATES OF [facility] CO2 [Moles/Vol] 32 mmol/L High 22-30 [facility] Comment on above: Order Comment: Speci men Type: BLOOD SPECIMENOrdering Facility: [facility] Address: [address] [place] [address] Performed By: #### 1 9123-9, 27711-04, 69378-4 ####[facility]ORATORYCLIA [id number] [address] [place] Creatinine [Mass/Vol] 0.75 mg/dL Normal 0.73-1.22 [facility] Comment on above: Order Comment: Speci men Type: BLOOD SPECIMENOrdering Facility: [facility] Address: [address] [place] [address] Performed By: #### 1 9123-9, 2777, 95504-1 ####[facility]ORATORYCLIA [id number] [address] [place] ESTIMATED GLOMERULAR FILTRATION RATE 98 mL/min/1.73m??? Normal >=60 [facility] Comment on above: Order Comment: Speci men Type: BLOOD SPECIMENOrdering Facility: [facility] Address: [address] [id number] Result Comment: Luzmaria mated Glomerular Filtration Rate [...] GFR. Performed By: #### 1 9123-9, 2777-1, 21512-9 ####[facility]ORATORYCLIA [id number] [place] [address] [place] Glucose [Mass/Vol] 118 mg/dL High 74-99 [facility] Comment on above: Order Comment: Shira feldman Type: BLOOD SPECIMENOrdering Facility: [facility] Address: [address] [place] [address] Result Comment: The [place] [employer] (ADA) [...] 1). Performed By: #### 1 9123-9, 2777-1, 07723-0 ####[facility] LABORATORYCLIA [id number] [place] [address] [place] Potassium [Moles/Vol] 3.6 mmol/L Low 3.7-5.1 [facility] Comment on above: Order Comment: Shira feldman Type: BLOOD SPECIMENOrdering Facility: [facility] Address: [address] [id number] Performed By: #### 1 9123-9, 2777-1, 74968-1 ####[facility]ORATORYCLIA [id number] [address] Sodium [Moles/Vol] 140 mmol/L Normal 136-144 [facility] Comment on above: Order Comment: Speci men Type: BLOOD SPECIMENOrdering Facility: [facility] Address: [address] [place] [address] Performed By: #### 1 9123-9, 2777-, 79306-2 ####[facility] LABORATORYCLIA [id number] [address] STATES [facility] Urea nitrogen [Mass/Vol] 15 mg/dL Normal 9-24 [facility] Comment on above: Order Comment: Speci men Type: BLOOD SPECIMENOrdering Facility: [facility] Address: [address] [place] [address] Performed By: #### 1 9123-9, 2777, 84810-5 ####[facility]ORATORYCLIA [id number] [address] CASE MANAGEMon 07-13-2021 CASE MANAGEM Normal [facility] CBC panel Auto (Bld)on 07-13 Erythrocyte distribution width (RBC) [Ratio] 16.2 % High 11.5-15.0 [facility] Comment on above: Order Comment: Speci men Type: BLOOD SPECIMENOrdering Facility: [facility] Address: [address] [place] [address] Performed By: #### 5 8410-2 ####[facility]ORATORYCLIA [id number] [address] Hematocrit (Bld) [Volume fraction] 29.5 % Low 39.0-51.0 [facility] Comment on above: Order Comment: Speci men Type: BLOOD SPECIMENOrdering Facility: [facility] Address: [address] [place] [address] Performed By: #### 5 8410-2 ####[facility] LABORATORYCLIA [id number] [address] STATES OF [facility] Hemoglobin (Bld) [Mass/Vol] 8.9 g/dL Low 13.0-17.0 [facility] Comment on above: Order Comment: Speci men Type: BLOOD SPECIMENOrdering Facility: [facility] Address: [address] [place] [address] Performed By: #### 5 8410-2 ####[facility]ORATORYCLIA [id number] [address] MCH (RBC) [Entitic mass] 27.8 pg Normal 26.0-34.0 [facility] Comment on above: Order Comment: Speci men Type: BLOOD SPECIMENOrdering Facility: [facility] Address: [address] [place] [address] Performed By: #### 5 8410-2 ####[facility] LABORATORYCLIA [id number] [address] MCHC (RBC) [Mass/Vol] 30.2 g/dL Low 30.5-36.0 [facility] Comment on above: Order Comment: Speci men Type: BLOOD SPECIMENOrdering Facility: [facility] Address: [address] [place] [address] Performed By: #### 5 8410-2 ####[facility] LABORATORYCLIA [id number] [address] MCV (RBC) [Entitic vol] 92.2 fL Normal 80.0-100.0 [facility] Comment on above: Order Comment: Speci men Type: BLOOD SPECIMENOrdering Facility: [facility] Address: [address] [place] [address] Performed By: #### 5 8410-2 ####[facility] LABORATORYCLIA [id number] [address] Nucleated RBC (Bld) [#/Vol] 10*3/uL Normal <0.01 [facility] Comment on above: Order Comment: Speci men Type: BLOOD SPECIMENOrdering Facility: [facility] Address: [address] [place] [address] Performed By: #### 5 8410-2 ####[facility] LABORATORYCLIA [id number] [address] [place] Platelet mean volume (Bld) [Entitic vol] 9.8 fL Normal 9.0-12.7 [facility] Comment on above: Order Comment: Speci men Type: BLOOD SPECIMENOrdering Facility: [facility] Address: [address] [place] [address] Performed By: #### 5 8410-2 ####[facility] LABORATORYCLIA [id number] [address] [place] Platelets (Bld) [#/Vol] 356 10*3/uL Normal 150-400 [facility] Comment on above: Order Comment: Speci men Type: BLOOD SPECIMENOrdering Facility: [facility] Address: [address] [place] [address] Performed By: #### 5 8410-2 ####[facility] LABORATORYCLIA [id number] [place] [address] [place] RBC (Bld) [#/Vol] 3.20 10*6/uL Low 4.20-6.00 [facility] Comment on above: Order Comment: Speci men Type: BLOOD SPECIMENOrdering Facility: [facility] Address: [address] [place], [place] [phone] Performed By: #### 5 8410-2 ####[facility] LABORATORYCLIA [id number] [address] [place] WBC (Bld) [#/Vol] 9.20 10*3/uL Normal 3.70-11.00 [facility] Comment on above: Order Comment: Speci men Type: BLOOD SPECIMENOrdering Facility: [facility] Address: [address] [place] [address] Performed By: #### 5 8410-2 ####[facility] LABORATORYCLIA [id number] [address] [place] CONSULT PROGon 07-13-2021 CONSULT PROG Normal [facility] CONSULT PROG Normal [facility] CONSULT PROG Normal [facility] Magnesium SerPl-mCncon 07-13 Magnesium [Mass/Vol] 2.1 mg/dL Normal 1.7-2.3 [facility] Comment on above: Order Comment: Speci men Type: BLOOD SPECIMENOrdering Facility: [facility] Address: [address] [place] [address] Performed By: #### 1 9123-9, 2777-1, 02688-2 ####[facility]ORATORYCLIA [id number] [address] Phosphate SerPl-mCncon 07-13 Phosphate [Mass/Vol] 3.7 mg/dL Normal 2.7-4.8 [facility] Comment on above: Order Comment: Speci men Type: BLOOD SPECIMENOrdering Facility: [facility] Address: [address] [place] [address] Performed By: #### 1 9123-9, 2777-1, 10454-3 ####[facility]ITALCLIA [id number] [address] THERAPY NTon 07-13-2021 THERAPY NT Normal [facility] THERAPY NT Normal [facility] Vancomycin random [Mass/Vol] on 07-13-2021 Vancomycin [Mass/Vol] 31.7 ug/mL High 10.0-20.0 [facility] Comment on above: Order Comment: Speci men Type: BLOOD SPECIMENOrdering Facility: [facility] Address: [address] [place] [address] Result Comment: Refe rence ranges and high/low indicator flags are provided as general guidelines only. The treating physician must determine appropriate target levels/dosing based on the specific clinical situation. Performed By: #### 4 091-5 ####[facility] LABORATORYCLIA [id number] [address] [place] aPTT PPPon 07-13-2021 aPTT Coag (PPP) [Time] 47.3 s High 23.0-32.4 [facility] Comment on above: Order Comment: Speci men Type: BLOOD SPECIMENOrdering Facility: [facility] Address: [address] [place] [address] Performed By: #### 1 4979-9 ####[facility] LABORATORYCLIA [id number] [address] aPTT Coag (PPP) [Time] 51.2 s High 23.0-32.4 [facility] Comment on above: Order Comment: Speci men Type: BLOOD SPECIMENOrdering Facility: [facility] Address: [address] [place] [address] Performed By: #### 1 4979-9 ####[facility] LABORATORYCLIA [id number] [address] aPTT Coag (PPP) [Time] 47.5 s High 23.0-32.4 [facility] Comment on above: Order Comment: Speci men Type: BLOOD SPECIMENOrdering Facility: [facility] Address: [address] [place] [address] Performed By: #### 1 4979-9 ####[facility] LABORATORYCLIA [id number] [address] [place] [facility] Basic metabolic 2000 panelon 07-12-2021 Anion gap [Moles/Vol] 7 mmol/L Low 9-18 [facility] Comment on above: Order Comment: Speci men Type: BLOOD SPECIMENOrdering Facility: [facility] Address: [address] [place] [address] Performed By: #### 1 9123-9, 2777-1, 97006-9 ####[facility] LABORATORYCLIA [id number] [address] [place] [facility] Calcium [Mass/Vol] 8.3 mg/dL Low 8.5-10.2 [facility] Comment on above: Order Comment: Speci men Type: BLOOD SPECIMENOrdering Facility: [facility] Address: [address] [place] [address] Performed By: #### 1 9123-9, 27711-04, 32326-4 ####[facility] LABORATORYCLIA [id number] [place] [address] [place] Chloride [Moles/Vol] 101 mmol/L Normal 97-105 [facility] Comment on above: Order Comment: Speci men Type: BLOOD SPECIMENOrdering Facility: [facility] Address: [address] [place] [address] Performed By: #### 1 9123-9, 2776-05, 66307-9 ####[facility] LABORATORYCLIA [id number] [address] [place] CO2 [Moles/Vol] 32 mmol/L High 22-30 [facility] Comment on above: Order Comment: Speci men Type: BLOOD SPECIMENOrdering Facility: [facility] Address: [address] [place] [address] Performed By: #### 1 9123-9, 2776-05, 49147-2 ####[facility] LABORATORYCLIA [id number] [address] [place] Creatinine [Mass/Vol] 0.70 mg/dL Low 0.73-1.22 [facility] Comment on above: Order Comment: Speci men Type: BLOOD SPECIMENOrdering Facility: [facility] Address: [address] [place] [address] Performed By: #### 1 9123-9, 27711-04, 48478-3 ####[facility] LABORATORYCLIA [id number] [address] [place] ESTIMATED GLOMERULAR FILTRATION RATE 100 mL/min/1.73m??? Normal >=60 [facility] Comment on above: Order Comment: Speci men Type: BLOOD SPECIMENOrdering Facility: [facility] Address: [address] [place] [address] Result Comment: Luzmaria mated Glomerular Filtration Rate [...] GFR. Performed By: #### 1 9123-9, 2777-1, 47093-7 ####[facility] LABORATORYCLIA [id number] [place] [address] [place] Glucose [Mass/Vol] 104 mg/dL High 74-99 [facility] Comment on above: Order Comment: Shira feldman Type: BLOOD SPECIMENOrdering Facility: [facility] Address: [address] [place] [address] Result Comment: The [place] [employer] (ADA) [...] 1). Performed By: #### 1 9123-9, 2777-, 14003-1 ####[facility] LABORATORYIA [id number] [place] [address] [place] Potassium [Moles/Vol] 3.7 mmol/L Normal 3.7-5.1 [facility] Comment on above: Order Comment: Shira feldman Type: BLOOD SPECIMENOrdering Facility: [facility] Address: [address] [place] [address] Performed By: #### 1 9123-9, 2777-, 55437-5 ####[facility] LABORATORYCLIA [id number] [address] STATES [facility] Sodium [Moles/Vol] 140 mmol/L Normal 136-144 [facility] Comment on above: Order Comment: Speci men Type: BLOOD SPECIMENOrdering Facility: [facility] Address: [address] [place] [address] Performed By: #### 1 9123-9, 2777-1, 16251-6 ####[facility] LABORATORYCLIA [id number] [address] STATES OF [facility] Urea nitrogen [Mass/Vol] 12 mg/dL Normal 9-24 [facility] Comment on above: Order Comment: Speci men Type: BLOOD SPECIMENOrdering Facility: [facility] Address: [address] [place] [address] Performed By: #### 1 9123-9, 2777-1, 52991-9 ####[facility]ORATORYCLIA [id number] [address] CBC panel Auto (Bld)on 07-12 Erythrocyte distribution width (RBC) [Ratio] 16.1 % High 11.5-15.0 [facility] Comment on above: Order Comment: Speci men Type: BLOOD SPECIMENOrdering Facility: [facility] Address: [address] [place] [address] Performed By: #### 5 8410-2 ####[facility] LABORATORYCLIA [id number] [address] [place] Hematocrit (Bld) [Volume fraction] 28.2 % Low 39.0-51.0 [facility] Comment on above: Order Comment: Speci men Type: BLOOD SPECIMENOrdering Facility: [facility] Address: [address] [place] [address] Performed By: #### 5 8410-2 ####[facility] LABORATORYCLIA [id number] [address] [place] Hemoglobin (Bld) [Mass/Vol] 8.5 g/dL Low 13.0-17.0 [facility] Comment on above: Order Comment: Speci men Type: BLOOD SPECIMENOrdering Facility: [facility] Address: [address] [place] [address] Performed By: #### 5 8410-2 ####[facility] LABORATORYCLIA [id number] [address] MCH (RBC) [Entitic mass] 26.8 pg Normal 26.0-34.0 [facility] Comment on above: Order Comment: Speci men Type: BLOOD SPECIMENOrdering Facility: [facility] Address: [address] [place] [address] Performed By: #### 5 8410-2 ####[facility] LABORATORYCLIA [id number] [address] MCHC (RBC) [Mass/Vol] 30.1 g/dL Low 30.5-36.0 [facility] Comment on above: Order Comment: Speci men Type: BLOOD SPECIMENOrdering Facility: [facility] Address: [address] [place] [address] Performed By: #### 5 8410-2 ####[facility] LABORATORYCLIA [id number] [address] MCV (RBC) [Entitic vol] 89.0 fL Normal 80.0-100.0 [facility] Comment on above: Order Comment: Speci men Type: BLOOD SPECIMENOrdering Facility: [facility] Address: [address] [place] [address] Performed By: #### 5 8410-2 ####[facility] LABORATORYCLIA [id number] [address] Nucleated RBC (Bld) [#/Vol] 10*3/uL Normal <0.01 [facility] Comment on above: Order Comment: Speci men Type: BLOOD SPECIMENOrdering Facility: [facility] Address: [address] [place] [address] Performed By: #### 5 8410-2 ####[facility]ORATORYCLIA [id number] [address] [place] Platelet mean volume (Bld) [Entitic vol] 9.6 fL Normal 9.0-12.7 [facility] Comment on above: Order Comment: Speci men Type: BLOOD SPECIMENOrdering Facility: [facility] Address: [address] [place] [address] Performed By: #### 5 8410-2 ####[facility] LABORATORYCLIA [id number] [place] [address] [place] Platelets (Bld) [#/Vol] 340 10*3/uL Normal 150-400 [facility] Comment on above: Order Comment: Speci men Type: BLOOD SPECIMENOrdering Facility: [facility] Address: [address] [place] [address] Performed By: #### 5 8410-2 ####[facility] LABORATORYCLIA [id number] [place] [address] [place] RBC (Bld) [#/Vol] 3.17 10*6/uL Low 4.20-6.00 [facility] Comment on above: Order Comment: Speci men Type: BLOOD SPECIMENOrdering Facility: [facility] Address: [address] [place] [address] Performed By: #### 5 8410-2 ####[facility] LABORATORYCLIA [id number] [place] [address] [place] WBC (Bld) [#/Vol] 8.66 10*3/uL Normal 3.70-11.00 [facility] Comment on above: Order Comment: Speci men Type: BLOOD SPECIMENOrdering Facility: [facility] Address: [address] [place] [address] Performed By: #### 5 8410-2 ####[facility]ORATORYCLIA [id number] [address] [place] CONSULTon 07-12-2021 CONSULT Normal [facility] CONSULT PROGon 07-12-2021 CONSULT PROG Normal [facility] Magnesium SerPl-mCncon 07-12 Magnesium [Mass/Vol] 2.1 mg/dL Normal 1.7-2.3 [facility] Comment on above: Order Comment: Speci men Type: BLOOD SPECIMENOrdering Facility: [facility] Address: [address] [place] [address] Performed By: #### 1 9123-9, 2777-1, 35071-6 ####[facility]ORATORYCLIA [id number] [address] OF [facility] NURSING PROGon 07-12-2021 NURSING PROG Normal [facility] Phosphate SerPl-mCncon 07-12 Phosphate [Mass/Vol] 3.1 mg/dL Normal 2.7-4.8 [facility] Comment on above: Order Comment: Speci men Type: BLOOD SPECIMENOrdering Facility: [facility] Address: [address] [place] [address] Performed By: #### 1 9123-9, 2777-1, 65625-7 ####[facility]ORATORYCLIA [id number] [address] OF [facility] THERAPY NTon 07-12-2021 THERAPY NT Normal [facility] aPTT PPPon 07-12-2021 aPTT Coag (PPP) [Time] 49.5 s High 23.0-32.4 [facility] Comment on above: Order Comment: Speci men Type: BLOOD SPECIMENOrdering Facility: [facility] Address: [address] [place] [address] Performed By: #### 1 4979-9 ####[facility]ORATORYCLIA [id number] [address] aPTT Coag (PPP) [Time] 68.0 s High 23.0-32.4 [facility] Comment on above: Order Comment: Speci men Type: BLOOD SPECIMENOrdering Facility: [facility] Address: [address] [place] [address] Performed By: #### 1 4979-9 ####[facility]ORATORYCLIA [id number] [place] [address] [place] aPTT Coag (PPP) [Time] 80.0 s High 23.0-32.4 [facility] Comment on above: Order Comment: Speci men Type: BLOOD SPECIMENOrdering Facility: [facility] Address: [address] [place] [address] Performed By: #### 1 4979-9 ####[facility]ORATORYCLIA [id number] [address] [place] CASE MGT INIT ASSESon 2021 CASE MGT INIT ASSES Normal [facility] CBC panel Auto (Bld)on 07-11 Erythrocyte distribution width (RBC) [Ratio] 16.3 % High 11.5-15.0 [facility] Comment on above: Order Comment: Speci men Type: BLOOD SPECIMENOrdering Facility: [facility] Address: [address] [place] [address] Performed By: #### 5 8410-2 ####[facility]ITALCLIA [id number] [address] STATES [facility] Hematocrit (Bld) [Volume fraction] 28.3 % Low 39.0-51.0 [facility] Comment on above: Order Comment: Speci men Type: BLOOD SPECIMENOrdering Facility: [facility] Address: [address] [place] [address] Performed By: #### 5 8410-2 ####[facility]ORATORYCLIA [id number] [address] [place] Hemoglobin (Bld) [Mass/Vol] 8.8 g/dL Low 13.0-17.0 [facility] Comment on above: Order Comment: Speci men Type: BLOOD SPECIMENOrdering Facility: [facility] Address: [address] [place] [address] Performed By: #### 5 8410-2 ####[facility]ORATORYCLIA [id number] [address] [place] MCH (RBC) [Entitic mass] 27.4 pg Normal 26.0-34.0 [facility] Comment on above: Order Comment: Speci men Type: BLOOD SPECIMENOrdering Facility: [facility] Address: [address] [place] [address] Performed By: #### 5 8410-2 ####[facility]ORATORYCLIA [id number] [place] [address] [place] MCHC (RBC) [Mass/Vol] 31.1 g/dL Normal 30.5-36.0 [facility] Comment on above: Order Comment: Speci men Type: BLOOD SPECIMENOrdering Facility: [facility] Address: [address] [place] [address] Performed By: #### 5 8410-2 ####[facility]ORATORYCLIA [id number] [address] [place] MCV (RBC) [Entitic vol] 88.2 fL Normal 80.0-100.0 [facility] Comment on above: Order Comment: Speci men Type: BLOOD SPECIMENOrdering Facility: [facility] Address: [address] [place] [address] Performed By: #### 5 8410-2 ####[facility]ORATORYCLIA [id number] [address] [place] Nucleated RBC (Bld) [#/Vol] 10*3/uL Normal <0.01 [facility] Comment on above: Order Comment: Speci men Type: BLOOD SPECIMENOrdering Facility: [facility] Address: [address] [place] [address] Performed By: #### 5 8410-2 ####[facility]ORATORYCLIA [id number] [address] [place] Platelet mean volume (Bld) [Entitic vol] 9.7 fL Normal 9.0-12.7 [facility] Comment on above: Order Comment: Speci men Type: BLOOD SPECIMENOrdering Facility: [facility] Address: [address] [place] [address] Performed By: #### 5 8410-2 ####[facility]ORATORYCLIA [id number] [address] Platelets (Bld) [#/Vol] 315 10*3/uL Normal 150-400 [facility] Comment on above: Order Comment: Speci men Type: BLOOD SPECIMENOrdering Facility: [facility] Address: [address] [place] [address] Performed By: #### 5 8410-2 ####[facility]ORATORYCLIA [id number] [address] STATES OF [facility] RBC (Bld) [#/Vol] 3.21 10*6/uL Low 4.20-6.00 [facility] Comment on above: Order Comment: Speci men Type: BLOOD SPECIMENOrdering Facility: [facility] Address: [address] [place] [address] Performed By: #### 5 8410-2 ####[facility]ORATORYCLIA [id number] [address] WBC (Bld) [#/Vol] 9.18 10*3/uL Normal 3.70-11.00 [facility] Comment on above: Order Comment: Speci men Type: BLOOD SPECIMENOrdering Facility: [facility] Address: [address] [place] [address] Performed By: #### 5 8410-2 ####[facility]ORATORYCLIA [id number] [address] CONSULT PROGon 07-11-2021 CONSULT PROG Normal [facility] CT BRAIN WO IVCONon 07-12-19 CT BRAIN WO IVCON Normal [facility] Magnesium SerPl-mCncon 07-11 Magnesium [Mass/Vol] 2.1 mg/dL Normal 1.7-2.3 [facility] Comment on above: Order Comment: Speci men Type: BLOOD SPECIMENOrdering Facility: [facility] Address: [address] [place] [address] Performed By: #### 1 9123-9, 2777-1 ####[facility]ORATORYCLIA [id number] [address] NURSING PROGon 07-11-2021 NURSING PROG Normal [facility] NURSING PROG Normal [facility] Phosphate SerPl-mCncon 07-11 Phosphate [Mass/Vol] 3.4 mg/dL Normal 2.7-4.8 [facility] Comment on above: Order Comment: Speci men Type: BLOOD SPECIMENOrdering Facility: [facility] Address: [address] [place] [address] Performed By: #### 1 9123-9, 2777-1 ####[facility]ORATORYCLIA [id number] [address] THERAPY NTon 07-11-2021 THERAPY NT Normal [facility] Vancomycin random [Mass/Vol] on 07-11-2021 Vancomycin [Mass/Vol] 28.6 ug/mL High 10.0-20.0 [facility] Comment on above: Order Comment: Speci men Type: BLOOD SPECIMENOrdering Facility: [facility] Address: [address] [place] [address] Result Comment: Refe rence ranges and high/low indicator flags are provided as general guidelines only. The treating physician must determine appropriate target levels/dosing based on the specific clinical situation. Performed By: #### 4 091-5 ####[facility]ORATORYCLIA [id number] [address] aPTT PPPon 07-11-2021 aPTT Coag (PPP) [Time] 62.0 s High 23.0-32.4 [facility] Comment on above: Order Comment: Speci men Type: BLOOD SPECIMENOrdering Facility: [facility] Address: [address] [place] [address] Performed By: #### 1 4979-9 ####[facility]ORATORYCLIA [id number] [address] aPTT Coag (PPP) [Time] 52.7 s High 23.0-32.4 [facility] Comment on above: Order Comment: Speci men Type: BLOOD SPECIMENOrdering Facility: [facility] Address: [address] [place] [address] Performed By: #### 1 4979-9 ####[facility]ORATORYCLIA [id number] [place] [address] [place] aPTT Coag (PPP) [Time] 29.9 s Normal 23.0-32.4 [facility] Comment on above: Order Comment: Speci men Type: BLOOD SPECIMENOrdering Facility: [facility] Address: [address] [place] [address] Performed By: #### 1 4979-9 ####[facility]ORATORYCLIA [id number] [place] [address] [place] Basic metabolic 2000 panelon 07-10-2021 Anion gap [Moles/Vol] 14 mmol/L Normal 9-18 [facility] Comment on above: Order Comment: Speci men Type: BLOOD SPECIMENOrdering Facility: [facility] Address: [address] [place] [address] Performed By: #### 1 9123-9, 2777-1, 39530-6 ####[facility]PITALCLIA [id number] [place] [address] [place] Calcium [Mass/Vol] 8.5 mg/dL Normal 8.5-10.2 [facility] Comment on above: Order Comment: Speci men Type: BLOOD SPECIMENOrdering Facility: [facility] Address: [address] [place] [address] Performed By: #### 1 9123-9, 2777-1, 45189-4 ####[facility]ORATORYCLIA [id number] [address] [place] Chloride [Moles/Vol] 100 mmol/L Normal 97-105 [facility] Comment on above: Order Comment: Speci men Type: BLOOD SPECIMENOrdering Facility: [facility] Address: [address] [place] [address] Performed By: #### 1 9123-9, 2777-1, 19599-7 ####[facility]PITALCLIA [id number] [address] STATES OF [facility] CO2 [Moles/Vol] 27 mmol/L Normal 22-30 [facility] Comment on above: Order Comment: Speci men Type: BLOOD SPECIMENOrdering Facility: [facility] Address: [address] [place] [address] Performed By: #### 1 9123-9, 2777, 29684-9 ####[facility]PITALCLIA [id number] [address] Creatinine [Mass/Vol] 0.66 mg/dL Low 0.73-1.22 [facility] Comment on above: Order Comment: Speci men Type: BLOOD SPECIMENOrdering Facility: [facility] Address: [address] [place] [address] Performed By: #### 1 9123-9, 2777, 74961-1 ####[facility]PITALIA [id number] [address] ESTIMATED GLOMERULAR FILTRATION RATE 102 mL/min/1.73m??? Normal >=60 [facility] Comment on above: Order Comment: Speci men Type: BLOOD SPECIMENOrdering Facility: [facility] Address: [address] [place] [address] Result Comment: Luzmaria mated Glomerular Filtration Rate [...] GFR. Performed By: #### 1 9123-9, 2777-1, 87703-7 ####[facility] LABORATORYCLIA [id number] [place] [address] [place] Glucose [Mass/Vol] 93 mg/dL Normal 74-99 [facility] Comment on above: Order Comment: Shira feldman Type: BLOOD SPECIMENOrdering Facility: [facility] Address: [address] [place], [place] [id number] Result Comment: [employer] [place] [employer] (ADA) [...] 1). Performed By: #### 1 9123-9, 2777-, 26452-8 ####[facility] LABORATORYCLIA [id number] [place] [address] [place] Potassium [Moles/Vol] 3.5 mmol/L Low 3.7-5.1 [facility] Comment on above: Order Comment: Shira feldman Type: BLOOD SPECIMENOrdering Facility: [facility] Address: [address] [place], [place] [address] Performed By: #### 1 9123-9, 2777-, 20402-8 ####[facility] LABORATORYCLIA [id number] [place] [address] [place] Sodium [Moles/Vol] 141 mmol/L Normal 136-144 [facility] Comment on above: Order Comment: Shira feldman Type: BLOOD SPECIMENOrdering Facility: [facility] Address: [address] [place], [place] [phone] Performed By: #### 1 9123-9, 2777-, 83505-8 ####[facility] LABORATORYCLIA [id number] [place] [address] [place] Urea nitrogen [Mass/Vol] 11 mg/dL Normal 9-24 [facility] Comment on above: Order Comment: Speci men Type: BLOOD SPECIMENOrdering Facility: [facility] Address: [address] [place] [address] Performed By: #### 1 9123-9, 2777-1, 46890-6 ####[facility] LABORATORYCLIA [id number] [address] STATES [facility] CBC panel Auto (Bld)on 07-10 Erythrocyte distribution width (RBC) [Ratio] 16.2 % High 11.5-15.0 [facility] Comment on above: Order Comment: Speci men Type: BLOOD SPECIMENOrdering Facility: [facility] Address: [address] [place] [address] Performed By: #### 5 8410-2 ####[facility] LABORATORYCLIA [id number] [address] STATES [facility] Hematocrit (Bld) [Volume fraction] 30.6 % Low 39.0-51.0 [facility] Comment on above: Order Comment: Speci men Type: BLOOD SPECIMENOrdering Facility: [facility] Address: [address] [place] [address] Performed By: #### 5 8410-2 ####[facility] LABORATORYCLIA [id number] [address] STATES OF [facility] Hemoglobin (Bld) [Mass/Vol] 9.6 g/dL Low 13.0-17.0 [facility] Comment on above: Order Comment: Speci men Type: BLOOD SPECIMENOrdering Facility: [facility] Address: [address] [place] [address] Performed By: #### 5 8410-2 ####[facility] LABORATORYCLIA [id number] [address] MCH (RBC) [Entitic mass] 28.3 pg Normal 26.0-34.0 [facility] Comment on above: Order Comment: Speci men Type: BLOOD SPECIMENOrdering Facility: [facility] Address: [address] [place] [address] Performed By: #### 5 8410-2 ####[facility] LABORATORYCLIA [id number] [address] MCHC (RBC) [Mass/Vol] 31.4 g/dL Normal 30.5-36.0 [facility] Comment on above: Order Comment: Speci men Type: BLOOD SPECIMENOrdering Facility: [facility] Address: [address] [place] [address] Performed By: #### 5 8410-2 ####[facility] LABORATORYCLIA [id number] [address] [place] MCV (RBC) [Entitic vol] 90.3 fL Normal 80.0-100.0 [facility] Comment on above: Order Comment: Speci men Type: BLOOD SPECIMENOrdering Facility: [facility] Address: [address] [place] [address] Performed By: #### 5 8410-2 ####[facility] LABORATORYCLIA [id number] [address] OF [facility] Nucleated RBC (Bld) [#/Vol] 10*3/uL Normal <0.01 [facility] Comment on above: Order Comment: Speci men Type: BLOOD SPECIMENOrdering Facility: [facility] Address: [address] [place] [address] Performed By: #### 5 8410-2 ####[facility] LABORATORYCLIA [id number] [address] Platelet mean volume (Bld) [Entitic vol] 9.7 fL Normal 9.0-12.7 [facility] Comment on above: Order Comment: Speci men Type: BLOOD SPECIMENOrdering Facility: [facility] Address: [address] [place] [address] Performed By: #### 5 8410-2 ####[facility] LABORATORYCLIA [id number] [address] [place] Platelets (Bld) [#/Vol] 306 10*3/uL Normal 150-400 [facility] Comment on above: Order Comment: Speci men Type: BLOOD SPECIMENOrdering Facility: [facility] Address: [address] [place] [address] Performed By: #### 5 8410-2 ####[facility] LABORATORYCLIA [id number] [place] [address] [place] RBC (Bld) [#/Vol] 3.39 10*6/uL Low 4.20-6.00 [facility] Comment on above: Order Comment: Speci men Type: BLOOD SPECIMENOrdering Facility: [facility] Address: [address] [place] [address] Performed By: #### 5 8410-2 ####[facility] LABORATORYCLIA [id number] [address] [place] [facility] WBC (Bld) [#/Vol] 9.81 10*3/uL Normal 3.70-11.00 [facility] Comment on above: Order Comment: Speci men Type: BLOOD SPECIMENOrdering Facility: [facility] Address: [address] [place] [address] Performed By: #### 5 8410-2 ####[facility] LABORATORYCLIA [id number] [address] [place] CONSULTon 07-10-2021 CONSULT Normal [facility] CONSULT Normal [facility] Magnesium SerPl-mCncon 07-10 Magnesium [Mass/Vol] 1.9 mg/dL Normal 1.7-2.3 [facility] Comment on above: Order Comment: Speci men Type: BLOOD SPECIMENOrdering Facility: [facility] Address: [address] [place] [address] Performed By: #### 1 9123-9, 2777-1, 13550-3 ####[facility] LABORATORYCLIA [id number] [place] [address] [place] NURSING PROGon 07-10-2021 NURSING PROG Normal [facility] NURSING PROG Normal [facility] NUTRITIONon 07-10-2021 NUTRITION Normal [facility] Phosphate SerPl-mCncon 07-10 Phosphate [Mass/Vol] 3.6 mg/dL Normal 2.7-4.8 [facility] Comment on above: Order Comment: Speci men Type: BLOOD SPECIMENOrdering Facility: [facility] [facility] Address: [address] [place] [address] Performed By: #### 1 9123-9, 2777-1, 07434-9 ####[facility] LABORATORYCLIA [id number] [place] [address] [place] US DVT LOWER BILon US DVT LOWER RAINER Normal [facility] aPTT PPPon 07-10-2021 aPTT Coag (PPP) [Time] 28.8 s Normal 23.0-32.4 [facility] Comment on above: Order Comment: Speci men Type: BLOOD SPECIMENOrdering Facility: [facility] Address: [address] [place] [address] Performed By: #### 1 4979-9 ####[facility]ORATORYCLIA [id number] [address] aPTT Coag (PPP) [Time] 28.4 s Normal 23.0-32.4 [facility] Comment on above: Order Comment: Speci men Type: BLOOD SPECIMENOrdering Facility: [facility] Address: [address] [place] [address] Performed By: #### 1 4979-9 ####[facility]ORATORYCLIA [id number] [place] [address] [place] ALLIED HEALTHon 07-09-2021 ALLIED HEALTH Normal [facility] Basic metabolic 2000 panelon 07-09-2021 Anion gap [Moles/Vol] 9 mmol/L Normal 9-18 [facility] Comment on above: Order Comment: Speci men Type: BLOOD SPECIMENOrdering Facility: [facility] Address: [address] [place] [address] Performed By: #### 1 9123-9, 2777, 74933-9 ####[facility]ORATORYCLIA [id number] [place] [address] [place] Calcium [Mass/Vol] 8.3 mg/dL Low 8.5-10.2 [facility] Comment on above: Order Comment: Speci men Type: BLOOD SPECIMENOrdering Facility: [facility] Address: [address] [place] [address] Performed By: #### 1 9123-9, 27711-04, 92165-3 ####[facility] LABORATORYCLIA [id number] [place] [address] [place] Chloride [Moles/Vol] 100 mmol/L Normal 97-105 [facility] Comment on above: Order Comment: Speci men Type: BLOOD SPECIMENOrdering Facility: [facility] Address: [address] [place] [address] Performed By: #### 1 9123-9, 27711-04, 10377-3 ####[facility]ORATORYCLIA [id number] [address] [place] CO2 [Moles/Vol] 29 mmol/L Normal 22-30 [facility] Comment on above: Order Comment: Speci men Type: BLOOD SPECIMENOrdering Facility: [facility] Address: [address] [place] [address] Performed By: #### 1 9123-9, 2776-05, 56932-9 ####[facility]ORATORYCLIA [id number] [place] [address] [place] Creatinine [Mass/Vol] 0.61 mg/dL Low 0.73-1.22 [facility] Comment on above: Order Comment: Speci men Type: BLOOD SPECIMENOrdering Facility: [facility] Address: [address] [place] [address] Performed By: #### 1 9123-9, 27711-04, 29165-2 ####[facility] LABORATORYCLIA [id number] [place] [address] [place] ESTIMATED GLOMERULAR FILTRATION RATE 104 mL/min/1.73m??? Normal >=60 [facility] Comment on above: Order Comment: Shira feldman Type: BLOOD SPECIMENOrdering Facility: [facility] Address: [address] [place], [place] [id number] Result Comment: Luzmaria mated Glomerular Filtration Rate [...] GFR. Performed By: #### 1 9123-9, 2777-1, 33241-1 ####[facility] [id number] [place] [address] [place] Glucose [Mass/Vol] 106 mg/dL High 74-99 [facility] Comment on above: Order Comment: Shira feldman Type: BLOOD SPECIMENOrdering Facility: [facility] Address: [address] [place] [address] Result Comment: The [place] [employer] (ADA) [...] 1). Performed By: #### 1 9123-9, 2777-1, 54180-9 ####[facility]ORATORYCLIA [id number] [place] [address] [place] Potassium [Moles/Vol] 3.6 mmol/L Low 3.7-5.1 [facility] Comment on above: Order Comment: Speci men Type: BLOOD SPECIMENOrdering Facility: [facility] Address: [address] [place] [address] Performed By: #### 1 9123-9, 2777-, 77692-1 ####[facility]ORATORYCLIA [id number] [address] STATES OF [facility] Sodium [Moles/Vol] 138 mmol/L Normal 136-144 [facility] Comment on above: Order Comment: Speci men Type: BLOOD SPECIMENOrdering Facility: [facility] Address: [address] [place] [address] Performed By: #### 1 9123-9, 27711-04, 52617-5 ####[facility]ORATORYCLIA [id number] [address] STATES OF [facility] Urea nitrogen [Mass/Vol] 12 mg/dL Normal 9-24 [facility] Comment on above: Order Comment: Speci men Type: BLOOD SPECIMENOrdering Facility: [facility] Address: [address] [place] [address] Performed By: #### 1 9123-9, 27711-04, 87078-4 ####[facility]ORATORYCLIA [id number] [address] STATES OF [facility] CBC panel Auto (Bld)on 07-09 Erythrocyte distribution width (RBC) [Ratio] 16.2 % High 11.5-15.0 [facility] Comment on above: Order Comment: Speci men Type: BLOOD SPECIMENOrdering Facility: [facility] Address: [address] [place] [address] Performed By: #### 5 8410-2 ####[facility]ORATORYCLIA [id number] [address] Hematocrit (Bld) [Volume fraction] 29.0 % Low 39.0-51.0 [facility] Comment on above: Order Comment: Speci men Type: BLOOD SPECIMENOrdering Facility: [facility] Address: [address] [place] [address] Performed By: #### 5 8410-2 ####[facility]ORATORYCLIA [id number] [address] Hemoglobin (Bld) [Mass/Vol] 8.8 g/dL Low 13.0-17.0 [facility] Comment on above: Order Comment: Speci men Type: BLOOD SPECIMENOrdering Facility: [facility] Address: [address] [place] [address] Performed By: #### 5 8410-2 ####[facility]ORATORYCLIA [id number] [address] MCH (RBC) [Entitic mass] 27.0 pg Normal 26.0-34.0 [facility] Comment on above: Order Comment: Speci men Type: BLOOD SPECIMENOrdering Facility: [facility] Address: [address] [place] [address] Performed By: #### 5 8410-2 ####[facility]ORATORYCLIA [id number] [address] MCHC (RBC) [Mass/Vol] 30.3 g/dL Low 30.5-36.0 [facility] Comment on above: Order Comment: Speci men Type: BLOOD SPECIMENOrdering Facility: [facility] Address: [address] [place] [address] Performed By: #### 5 8410-2 ####[facility]ORATORYCLIA [id number] [address] MCV (RBC) [Entitic vol] 89.0 fL Normal 80.0-100.0 [facility] Comment on above: Order Comment: Speci men Type: BLOOD SPECIMENOrdering Facility: [facility] Address: [address] [place] [address] Performed By: #### 5 8410-2 ####[facility]ORATORYCLIA [id number] [address] Nucleated RBC (Bld) [#/Vol] 10*3/uL Normal <0.01 [facility] Comment on above: Order Comment: Speci men Type: BLOOD SPECIMENOrdering Facility: [facility] Address: [address] [place], [place] [address] Performed By: #### 5 8410-2 ####[facility]ORATORYCLIA [id number] [address] [place] Platelet mean volume (Bld) [Entitic vol] 9.8 fL Normal 9.0-12.7 [facility] Comment on above: Order Comment: Speci men Type: BLOOD SPECIMENOrdering Facility: [facility] Address: [address] [place] [address] Performed By: #### 5 8410-2 ####[facility]ORATORYCLIA [id number] [address] [place] Platelets (Bld) [#/Vol] 281 10*3/uL Normal 150-400 [facility] Comment on above: Order Comment: Speci men Type: BLOOD SPECIMENOrdering Facility: [facility] Address: [address] [place], [place] [address] Performed By: #### 5 8410-2 ####[facility]ORATORYCLIA [id number] [place] [address] [place] RBC (Bld) [#/Vol] 3.26 10*6/uL Low 4.20-6.00 [facility] Comment on above: Order Comment: Speci men Type: BLOOD SPECIMENOrdering Facility: [facility] Address: [address] [place], [place] [address] Performed By: #### 5 8410-2 ####[facility]ORATORYCLIA [id number] [address] [place] WBC (Bld) [#/Vol] 9.12 10*3/uL Normal 3.70-11.00 [facility] Comment on above: Order Comment: Speci men Type: BLOOD SPECIMENOrdering Facility: [facility] Address: [address] [place], [place] [address] Performed By: #### 5 8410-2 ####[facility]ORATORYCLIA [id number] [address] OF [facility] CONSULT PROGon 07-09-2021 CONSULT PROG Normal [facility] CONSULT PROG Normal [facility] HISTORY PHYSICALon HISTORY PHYSICAL Normal [facility] Magnesium SerPl-mCncon 07-09 Magnesium [Mass/Vol] 1.9 mg/dL Normal 1.7-2.3 [facility] Comment on above: Order Comment: Speci men Type: BLOOD SPECIMENOrdering Facility: [facility] Address: [address] [place] [address] Performed By: #### 1 9123-9, 2777-1, 91836-2 ####[facility]ORATORYCLIA [id number] [address] Phosphate SerPl-ncon 07-09 Phosphate [Mass/Vol] 3.6 mg/dL Normal 2.7-4.8 [facility] Comment on above: Order Comment: Speci men Type: BLOOD SPECIMENOrdering Facility: [facility] Address: [address] [place] [address] Performed By: #### 1 9123-9, 2777-1, 51183-1 ####[facility]ORATORYCLIA [id number] [address] [place] THERAPY NTon 07-09-2021 THERAPY NT Normal [facility] XR ABDOMEN 1V SUPINEon 07-09 XR ABDOMEN 1V SUPINE Normal [facility] ALLIED HEALTHon 07-08-2021 ALLIED HEALTH Normal [facility] ALLIED HEALTH Normal [facility] ALLIED HEALTH Normal [facility] ANES PRE-OPon 07-08-2021 ANES PRE-OP Normal [facility] BRIEF OP NOTon 07-08-2021 BRIEF OP NOT Normal [facility] Bacteria Bld Culton 07-09-19 22 Bacteria identified Cx Nom (Bld) CULTURE, BLOOD: No growth 5 days Normal [facility] Comment on above: Performed By: #### 6 00-7 ####[facility]ORATORYCLIA [id number] [address] Bacteria identified Cx Nom (Bld) CULTURE, BLOOD: No growth 5 days [facility] Comment on above: Performed By: #### 6 00-7 ####[facility]ORATORYCLIA [id number] [address] Bacteria CSF Culton 07-09-19 22 Bacteria identified Cx Nom (CSF) CULTURE, CSF: No growth 14 days GRAM STAIN: No organisms seen No Polymorphonuclear Leukocytes Few Red Blood Cells Gram stain performed on cytospun specimen. Normal [facility] Comment on above: Performed By: #### 6 06-4 ####[facility]ORATORYCLIA [id number] [address] Bacteria Ur Culton 2 Bacteria identified Cx Nom (U) ORGANISM ID: 1 10,000 -<50,000 CFU/ml Proteus species Insignificant colony count. No further workup. ORGANISM ID: 2 <10,000 CFU/ml Normal urogenital chris Normal [facility] Comment on above: Performed By: #### 6 30-4 ####[facility]ORATORYCLIA [id number] [address] Bacteria Wnd Culton 07-09-19 22 Bacteria identified Cx Nom (Wound) ORGANISM ID: 1 Coagulase negative staphylococcus Growth in Enrichment Broth Only No susceptibility testing done. Call lab within 72 hours to initiate work-up if clinically indicated. GRAM STAIN: Account credited. Not performed on this specimen type. [facility] Comment on above: Performed By: #### 6 462-6 ####[facility]ORATORYCLIA [id number] [address] Bacteria identified Cx Nom (Wound) ORGANISM ID: 1 Rare Coagulase negative staphylococcus No susceptibility testing done. Call lab within 72 hours to initiate work-up if clinically indicated. GRAM STAIN: Account credited. Not performed on this specimen type. 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 Not performed on this specimen type. Normal [facility] Comment on above: Performed By: #### 6 462-6 ####[facility]ORATORYCLIA [id number] [place] [address] [place] Basic metabolic 2000 panelon 07-08-2021 Anion gap [Moles/Vol] 9 mmol/L Normal 9-18 [facility] Comment on above: Order Comment: Speci men Type: BLOOD SPECIMENOrdering Facility: [facility] Address: [address] [place] [address] Performed By: #### 2 4321-2 ####[facility]ORATORYCLIA [id number] [place] [address] [place] Calcium [Mass/Vol] 8.5 mg/dL Normal 8.5-10.2 [facility] Comment on above: Order Comment: Speci men Type: BLOOD SPECIMENOrdering Facility: [facility] Address: [address] [place] [address] Performed By: #### 2 4321-2 ####[facility]ORATORYCLIA [id number] [address] [place] Chloride [Moles/Vol] 98 mmol/L Normal 97-105 [facility] Comment on above: Order Comment: Speci men Type: BLOOD SPECIMENOrdering Facility: [facility] Address: [address] [place] [address] Performed By: #### 2 4321-2 ####[facility]ORATORYCLIA [id number] [address] [place] CO2 [Moles/Vol] 31 mmol/L High 22-30 [facility] Comment on above: Order Comment: Speci men Type: BLOOD SPECIMENOrdering Facility: [facility] Address: [address] [place] [address] Performed By: #### 2 4321-2 ####[facility]ORATORYCLIA [id number] [address] STATES OF [facility] Creatinine [Mass/Vol] 0.64 mg/dL Low 0.73-1.22 [facility] Comment on above: Order Comment: Shira francia Type: BLOOD SPECIMENOrdering Facility: [facility] Address: [address] [place] [address] Performed By: #### 2 4321-2 ####[facility]ORATORYCLIA [id number] [address] ESTIMATED GLOMERULAR FILTRATION RATE 102 mL/min/1.73m??? Normal >=60 [facility] Comment on above: Order Comment: Shira feldman Type: BLOOD SPECIMENOrdering Facility: [facility] Address: [address] [place] [address] Result Comment: Luzmaria mated Glomerular Filtration Rate [...] 2 4321-2 ####[facility]ORATORYCLIA [id number] [address] [place] Glucose [Mass/Vol] 114 mg/dL High 74-99 [facility] Comment on above: Order Comment: Johncara feldman Type: BLOOD SPECIMENOrdering Facility: [facility] Address: [address] [place] [address] Result Comment: The [place] [employer] (ADA) [...] 2 4321-2 ####[facility]ORATORYCLIA [id number] [place] [address] [place] Potassium [Moles/Vol] 3.4 mmol/L Low 3.7-5.1 [facility] Comment on above: Order Comment: Speci men Type: BLOOD SPECIMENOrdering Facility: [facility] Address: [address] [place] [address] Performed By: #### 2 4321-2 ####[facility]ORATORYCLIA [id number] [address] STATES [facility] Sodium [Moles/Vol] 138 mmol/L Normal 136-144 [facility] Comment on above: Order Comment: Speci men Type: BLOOD SPECIMENOrdering Facility: [facility] Address: [address] [place] [address] Performed By: #### 2 4321-2 ####[facility]ORATORYCLIA [id number] [address] STATES [facility] Urea nitrogen [Mass/Vol] 14 mg/dL Normal 9-24 [facility] Comment on above: Order Comment: Speci men Type: BLOOD SPECIMENOrdering Facility: [facility] Address: [address] [address] Performed By: #### 2 4321-2 ####[facility]ORATORYCLIA [id number] [place] [address] [place] CBC W Auto Differential pane l (Bld)on 07-08-2021 Basophils (Bld) [#/Vol] 0.05 10*3/uL Normal <0.11 [facility] Comment on above: Order Comment: Speci men Type: BLOOD SPECIMENOrdering Facility: [facility] Address: [address] [address] Performed By: #### 5 7021-8 ####[facility]ORATORYCLIA [id number] [address] [place] Basophils/100 WBC (Bld) 0.4 % Normal [facility] Comment on above: Order Comment: Speci men Type: BLOOD SPECIMENOrdering Facility: [facility] Address: [address] [place] [address] Performed By: #### 5 7021-8 ####[facility]ORATORYCLIA [id number] [address] [place] Differential cell count method Nom (Bld) Auto Normal [facility] Comment on above: Order Comment: Speci men Type: BLOOD SPECIMENOrdering Facility: [facility] Address: [address] [place] [address] Performed By: #### 5 7021-8 ####[facility]ORATORYCLIA [id number] [address] [place] Eosinophils (Bld) [#/Vol] 0.68 10*3/uL High <0.46 [facility] Comment on above: Order Comment: Speci men Type: BLOOD SPECIMENOrdering Facility: [facility] Address: [address] [place] [address] Performed By: #### 5 7021-8 ####[facility]ORATORYCLIA [id number] [address] Eosinophils/100 WBC (Bld) 5.4 % Normal [facility] Comment on above: Order Comment: Speci men Type: BLOOD SPECIMENOrdering Facility: [facility] Address: [address] [place] [address] Performed By: #### 5 7021-8 ####[facility]ORATORYCLIA [id number] [address] [place] Erythrocyte distribution width (RBC) [Ratio] 16.3 % High 11.5-15.0 [facility] Comment on above: Order Comment: Speci men Type: BLOOD SPECIMENOrdering Facility: [facility] Address: [address] [address] Performed By: #### 5 7021-8 ####[facility]ORATORYCLIA [id number] [address] Hematocrit (Bld) [Volume fraction] 35.7 % Low 39.0-51.0 [facility] Comment on above: Order Comment: Speci men Type: BLOOD SPECIMENOrdering Facility: [facility] Address: [address] [place] [address] Performed By: #### 5 7021-8 ####[facility]ATORYCLIA [id number] [address] Hemoglobin (Bld) [Mass/Vol] 10.8 g/dL Low 13.0-17.0 [facility] Comment on above: Order Comment: Speci men Type: BLOOD SPECIMENOrdering Facility: [facility] Address: [address] [place] [address] Performed By: #### 5 7021-8 ####[facility]ORATORYCLIA [id number] [address] IMMATURE GRAN % 0.4 % Normal [facility] Comment on above: Order Comment: Speci men Type: BLOOD SPECIMENOrdering Facility: [facility] Address: [address] [place] [address] Performed By: #### 5 7021-8 ####[facility]ORATORYCLIA [id number] [address] IMMATURE GRAN ABS 0.05 k/uL Normal <0.10 [facility] Comment on above: Order Comment: Speci men Type: BLOOD SPECIMENOrdering Facility: [facility] Address: [address] [place] [address] Performed By: #### 5 7021-8 ####[facility]ORATORYCLIA [id number] [address] OF [facility] Lymphocytes (Bld) [#/Vol] 1.85 10*3/uL Normal 1.00-4.00 [facility] Comment on above: Order Comment: Speci men Type: BLOOD SPECIMENOrdering Facility: [facility] Address: [address] [place] [address] Performed By: #### 5 7021-8 ####[facility]ORATORYCLIA [id number] [address] Lymphocytes/100 WBC (Bld) 14.7 % Normal [facility] Comment on above: Order Comment: Speci men Type: BLOOD SPECIMENOrdering Facility: [facility] Address: [address] [place] [address] Performed By: #### 5 7021-8 ####[facility]ORATORYCLIA [id number] [address] MCH (RBC) [Entitic mass] 27.1 pg Normal 26.0-34.0 [facility] Comment on above: Order Comment: Speci men Type: BLOOD SPECIMENOrdering Facility: [facility] Address: [address] [place] [address] Performed By: #### 5 7021-8 ####[facility]ORATORYCLIA [id number] [address] MCHC (RBC) [Mass/Vol] 30.3 g/dL Low 30.5-36.0 [facility] Comment on above: Order Comment: Speci men Type: BLOOD SPECIMENOrdering Facility: [facility] Address: [address] [place] [address] Performed By: #### 5 7021-8 ####[facility]ORATORYCLIA [id number] [address] MCV (RBC) [Entitic vol] 89.7 fL Normal 80.0-100.0 [facility] Comment on above: Order Comment: Speci men Type: BLOOD SPECIMENOrdering Facility: [facility] Address: [address] [place] [address] Performed By: #### 5 7021-8 ####[facility]ORATORYCLIA [id number] [address] [place] Monocytes (Bld) [#/Vol] 0.87 10*3/uL High <0.87 [facility] Comment on above: Order Comment: Speci men Type: BLOOD SPECIMENOrdering Facility: [facility] Address: [address] [place] [address] Performed By: #### 5 7021-8 ####[facility]ORATORYCLIA [id number] [place] [address] [place] Monocytes/100 WBC (Bld) 6.9 % Normal [facility] Comment on above: Order Comment: Speci men Type: BLOOD SPECIMENOrdering Facility: [facility] Address: [address] [place] [address] Performed By: #### 5 7021-8 ####[facility]ORATORYCLIA [id number] [address] [place] Neutrophils (Bld) [#/Vol] 9.05 10*3/uL High 1.45-7.50 [facility] Comment on above: Order Comment: Speci men Type: BLOOD SPECIMENOrdering Facility: [facility] Address: [address] [place] [address] Performed By: #### 5 7021-8 ####[facility]ORATORYCLIA [id number] [address] [place] Neutrophils/100 WBC (Bld) 72.2 % Normal [facility] Comment on above: Order Comment: Speci men Type: BLOOD SPECIMENOrdering Facility: [facility] Address: [address] [place] [address] Performed By: #### 5 7021-8 ####[facility]ORATORYCLIA [id number] [place] [address] [place] Nucleated RBC (Bld) [#/Vol] 10*3/uL Normal <0.01 [facility] Comment on above: Order Comment: Speci men Type: BLOOD SPECIMENOrdering Facility: [facility] Address: [address] [place] [address] Performed By: #### 5 7021-8 ####[facility]ORATORYCLIA [id number] [address] [place] Nucleated RBC/100 WBC (Bld) [Ratio] 0.0 /100 WBC Normal [facility] Comment on above: Order Comment: Speci men Type: BLOOD SPECIMENOrdering Facility: [facility] Address: [address] [place] [address] Performed By: #### 5 7021-8 ####[facility]ORATORYCLIA [id number] [address] [place] Platelet mean volume (Bld) [Entitic vol] 9.9 fL Normal 9.0-12.7 [facility] Comment on above: Order Comment: Speci men Type: BLOOD SPECIMENOrdering Facility: [facility] Address: [address] [place] [address] Performed By: #### 5 7021-8 ####[facility] LABORATORYCLIA [id number] [address] [place] Platelets (Bld) [#/Vol] 335 10*3/uL Normal 150-400 [facility] Comment on above: Order Comment: Speci men Type: BLOOD SPECIMENOrdering Facility: [facility] Address: [address] [place] [address] Performed By: #### 5 7021-8 ####[facility] LABORATORYCLIA [id number] [address] [place] RBC (Bld) [#/Vol] 3.98 10*6/uL Low 4.20-6.00 [facility] Comment on above: Order Comment: Speci men Type: BLOOD SPECIMENOrdering Facility: [facility] Address: [address] [place] [address] Performed By: #### 5 7021-8 ####[facility] LABORATORYCLIA [id number] [address] [place] [place] WBC (Bld) [#/Vol] 12.55 10*3/uL High 3.70-11.00 [facility] Comment on above: Order Comment: Speci men Type: BLOOD SPECIMENOrdering Facility: [facility] Address: [address] [place] [address] Performed By: #### 5 7021-8 ####[facility] LABORATORYCLIA [id number] [address] [place] CK CREATINE KINASEon 022 CK [Catalytic activity/Vol] 72 U/L Normal 51-298 [facility] Comment on above: Order Comment: Speci men Type: BLOOD SPECIMENOrdering Facility: [facility] Address: [address] [place] [address] Performed By: #### C K, 19262-1 ####[facility] LABORATORYCLIA [id number] [address] [place] CONSULT PROGon 07-08-2021 CONSULT PROG Normal [facility] CONSULT PROG Normal [facility] CSF MANUAL DIFFon 07-08-2021 DIF TTL, CSF 3 cells counted Normal [facility] Comment on above: Order Comment: Speci men Type: CEREBROSPINAL FLUIDOrdering Facility: [facility] Address: [address] [place] [address] Performed By: #### 3 4563-7, [id number] ####[facility] LABORATORYCLIA [id number] [place] [address] [place] LYMPH%, CSF 33 % Low 50-90 [facility] Comment on above: Order Comment: Speci men Type: CEREBROSPINAL FLUIDOrdering Facility: [facility] Address: [address] [place] [address] Performed By: #### 3 4563-7, [id number] ####[facility] LABORATORYCLIA [id number] [place] [address] [place] MONO%, CSF 67 % High 10-50 [facility] Comment on above: Order Comment: Speci men Type: CEREBROSPINAL FLUIDOrdering Facility: [facility] Address: [address] [place] [address] Performed By: #### 3 4563-7, [id number] ####[facility] LABORATORYCLIA [id number] [address] [place] CT ABD/PEL W IVCONon 022 CT ABD/PEL W IVCON Normal [facility] CT BRAIN WO IVCONon 07-09-[address] BRAIN WO IVCON Normal [facility] CT BRAIN WO IVCON Normal [facility] CT CHEST W IVCON PEon 2021 CT CHEST W IVCON PE Normal [facility] Cell count panel (CSF)on Clarity (CSF) Clear Normal Clear [facility] Comment on above: Order Comment: Speci men Type: CEREBROSPINAL FLUIDOrdering Facility: [facility] Address: [address] [place] [address] Performed By: #### 3 4563-7, [id number] ####[facility] LABORATORYCLIA [id number] [address] [place] Clarity (Unsp spec) Clear Normal Clear [facility] Comment on above: Order Comment: Speci men Type: CEREBROSPINAL FLUIDOrdering Facility: [facility] Address: [address] [place] [address] Performed By: #### 3 4563-7, [id number] ####[facility] LABORATORYCLIA [id number] [address] OF [place] Color (CSF) Colorless Normal Colorless [facility] Comment on above: Order Comment: Speci men Type: CEREBROSPINAL FLUIDOrdering Facility: [facility] Address: [address] [place] [address] Performed By: #### 3 4563-7, [id number] ####[facility] LABORATORYCLIA [id number] [address] OF [place] Color (Spun CSF) Colorless Normal Colorless [facility] Comment on above: Order Comment: Speci men Type: CEREBROSPINAL FLUIDOrdering Facility: [facility] Address: [facility] [place] [address] Performed By: #### 3 4563-7, [id number] ####[facility] LABORATORYCLIA [id number] [address] CSF [employer] Normal [facility] Comment on above: Order Comment: Speci men Type: CEREBROSPINAL FLUIDOrdering Facility: [facility] Address: [address] [place] [address] Performed By: #### 3 4563-7, [id number] ####[facility]ORATORYCLIA [id number] [address] RBC Manual cnt (CSF) [#/Vol] 94 cells/uL High 0-5 [facility] Comment on above: Order Comment: Speci men Type: CEREBROSPINAL FLUIDOrdering Facility: [facility] Address: [address] [place] [address] Performed By: #### 3 4563-7, [id number] ####[facility] LABORATORYCLIA [id number] [address] WBC Manual cnt (CSF) [#/Vol] 1 cells/uL Normal 0-5 [facility] Comment on above: Order Comment: Speci men Type: CEREBROSPINAL FLUIDOrdering Facility: [facility] Address: [address] [place] [address] Performed By: #### 3 4563-7, [id number] ####[facility] LABORATORYCLIA [id number] [address] Comprehensive metabolic 2000 panelon 07-08-2021 Albumin [Mass/Vol] 3.6 g/dL Low 3.9-4.9 [facility] Comment on above: Order Comment: Speci men Type: BLOOD SPECIMENOrdering Facility: [facility] Address: [address] [place] [address] Performed By: #### C K, 90035-9 ####[facility]ORATORYCLIA [id number] [address] OF [place] ALP [Catalytic activity/Vol] 125 U/L High 38-113 [facility] Comment on above: Order Comment: Speci men Type: BLOOD SPECIMENOrdering Facility: [facility] Address: [address] [place] [address] Performed By: #### Eileen Valdivia, 09762-2 ####[facility]ORATORYCLIA [id number] [address] [place] ALT With P-5'-P [Catalytic activity/Vol] 24 U/L Normal 10-54 [facility] Comment on above: Order Comment: Speci men Type: BLOOD SPECIMENOrdering Facility: [facility] Address: [address] [place] [address] Performed By: #### Eileen Valdivia, 48903-3 ####[facility] LABORATORYCLIA [id number] [address] OF [facility] Anion gap [Moles/Vol] 16 mmol/L Normal 9-18 [facility] Comment on above: Order Comment: Speci men Type: BLOOD SPECIMENOrdering Facility: [facility] Address: [address] [place] [address] Performed By: #### Eileen Valdivia, 47311-5 ####[facility] LABORATORYCLIA [id number] [address] AST With P-5'-P [Catalytic activity/Vol] 21 U/L Normal 14-40 [facility] Comment on above: Order Comment: Speci men Type: BLOOD SPECIMENOrdering Facility: [facility] Address: [address] [place] [address] Performed By: #### Eileen Valdivia, 31744-9 ####[facility]ORATORYCLIA [id number] [address] [place] Bilirubin [Mass/Vol] 0.3 mg/dL Normal 0.2-1.3 [facility] Comment on above: Order Comment: Speci men Type: BLOOD SPECIMENOrdering Facility: [facility] Address: [address] [place] [address] Performed By: #### Eileen Valdivia, 14306-2 ####[facility]ORATORYCLIA [id number] [place] [address] [place] Calcium [Mass/Vol] 8.9 mg/dL Normal 8.5-10.2 [facility] Comment on above: Order Comment: Speci men Type: BLOOD SPECIMENOrdering Facility: [facility] Address: [address] [place] [address] Performed By: #### Eileen Valdivia, 73582-7 ####[facility] LABORATORYCLIA [id number] [place] [address] [place] Chloride [Moles/Vol] 96 mmol/L Low 97-105 [facility] Comment on above: Order Comment: Speci men Type: BLOOD SPECIMENOrdering Facility: [facility] Address: [address] [place] [address] Performed By: #### Eileen Valdivia, 77689-8 ####[facility] LABORATORYCLIA [id number] [address] [place] CO2 [Moles/Vol] 27 mmol/L Normal 22-30 [facility] Comment on above: Order Comment: Speci men Type: BLOOD SPECIMENOrdering Facility: [facility] Address: [address] [place] [address] Performed By: #### Eileen Valdivia, 77375-6 ####[facility] LABORATORYCLIA [id number] [place] [address] [place] Creatinine [Mass/Vol] 0.68 mg/dL Low 0.73-1.22 [facility] Comment on above: Order Comment: Speci men Type: BLOOD SPECIMENOrdering Facility: [facility] Address: [address] [place] [address] Performed By: #### Eileen Valdivia, 37082-0 ####[facility] LABORATORYCLIA [id number] [address] ESTIMATED GLOMERULAR FILTRATION RATE 101 mL/min/1.73m??? Normal >=60 [facility] Comment on above: Order Comment: Speci men Type: BLOOD SPECIMENOrdering Facility: [facility] Address: [address] [place] [address] Result Comment: Luzmaria mated Glomerular Filtration Rate [...] actual GFR. Performed By: #### Eileen Valdivia, 20850-4 ####[facility] LABORATORYCLIA [id number] [place] [address] [place] Glucose [Mass/Vol] 130 mg/dL High 74-99 [facility] Comment on above: Order Comment: Shira men Type: BLOOD SPECIMENOrdering Facility: [facility] Address: [address] [address] Result Comment: The [place] [employer] (ADA) [...] 2016.39(Suppl 1). Performed By: #### Eileen Valdivia, 24904-2 ####[facility] LABORATORYCLIA [id number] [place] [address] [place] Potassium [Moles/Vol] 3.9 mmol/L Normal 3.7-5.1 [facility] Comment on above: Order Comment: Shira feldman Type: BLOOD SPECIMENOrdering Facility: [facility] Address: [address] Performed By: #### Eileen Valdivia, 46910-4 ####[facility] LABORATORYCLIA [id number] [place] [address] Protein [Mass/Vol] 7.0 g/dL Normal 6.3-8.0 [facility] Comment on above: Order Comment: Speci men Type: BLOOD SPECIMENOrdering Facility: [facility] Address: [address] [place] [address] Performed By: #### C Skip, 78319-0 ####[facility]ORATORYCLIA [id number] [address] STATES [facility] Sodium [Moles/Vol] 139 mmol/L Normal 136-144 [facility] Comment on above: Order Comment: Speci men Type: BLOOD SPECIMENOrdering Facility: [facility] Address: [address] [place] [address] Performed By: #### Eileen Valdivia, 33876-6 ####[facility] LABORATORYCLIA [id number] [address] STATES [facility] Urea nitrogen [Mass/Vol] 16 mg/dL Normal 9-24 [facility] Comment on above: Order Comment: Speci men Type: BLOOD SPECIMENOrdering Facility: [facility] Address: [address] [place] [address] Performed By: #### Eileen Valdivia, 95910-4 ####[facility]ORATORYCLIA [id number] [address] OF [facility] ED NOTEon 07-08-2021 ED NOTE HNO ID: [id number] Author: Lenora James RN Service: Emergency Medicine Author Type: Registered Nurse Type: ED Notes Filed: 07/08/2021 5:03 PM Note Text: Pt to OR with surgical team Normal [facility] ED NOTE HNO ID: [id number] Author: Lenora James RN Service: Emergency Medicine Author Type: Registered Nurse Type: ED Notes Filed: 07/08/2021 4:50 PM Note Text: OR team to get pt Normal [facility] ED NOTE HNO ID: [id number] Author: Lenora James RN Service: Emergency Medicine Author Type: Registered Nurse Type: ED Notes Filed: 07/08/2021 4:50 PM Note Text: Normal [facility] ED NOTE HNO ID: [id number] Author: Lenora James RN Service: Emergency Medicine Author Type: Registered Nurse Type: ED Notes Filed: 07/08/2021 4:50 PM Note Text: Spoke with presurg; pt to go to OR now [facility] ED NOTE HNO ID: [id number] Author: Lenora James RN Service: Emergency Medicine Author Type: Registered Nurse Type: ED Notes Filed: 07/08/2021 4:12 PM Note Text: Neurosurgery at beside [facility] ED NOTE HNO ID: [id number] Author: Lenora James RN Service: Emergency Medicine Author Type: Registered Nurse Type: ED Notes Filed: 07/08/2021 2:35 PM Note Text: respiratory aware of pt breathing treatments [facility] ED NOTE HNO ID: [id number] Author: Lisa Woo RN Service: ? Author Type: Registered Nurse Type: ED Notes Filed: 07/08/2021 2:20 PM Note Text: Xray notified pt is ready. [facility] ED NOTE HNO ID: [id number] Author: Lenora James RN Service: Emergency Medicine Author Type: Registered Nurse Type: ED Notes Filed: 07/08/2021 12:14 PM Note Text: CT notified regarding imaging orders placed [facility] ED NOTE Normal [facility] ED PROV NOTEon 07-08-2021 ED PROV NOTE Normal [facility] Glucose CSF-mCncon 2 Glucose (CSF) [Mass/Vol] 88 mg/dL High 40-70 [facility] Comment on above: Order Comment: Speci men Type: CEREBROSPINAL FLUIDOrdering Facility: [facility] Address: [address] [place] [phone] Result Comment: Lumb ar CSF glucose values of healthy patients are approximately 60% of the plasma values and must always be compared with a concurrently measured plasma value for adequate clinical interpretation.References: 1. Glucose HK (GLUC3) [package insert V 12.0 Syrian]. [employer], [place], [place]. September 2015. 2. Michelle Moore, Michelle Manjarrez (2015). Chapter 7: Glucose and Lactate. Marianela Alcocer al.(eds.), Cerebrospinal Fluid in Clinical Neurology. [employer]enson: [employer]. Performed By: #### 2 880-3, 2342-4 ####[facility] LABORATORYCLIA [id number] [address] HIGH SENSITIVITY TROPONIN To n 07-08-2021 HIGH SENSITIVITY TAMIKO 27 ng/L High <12 [facility] Comment on above: Order Comment: Speci men Type: BLOOD SPECIMENOrdering Facility: [facility] Address: [address] [place] [address] Result Comment: When assessing risk for acute [...] #### H STNT ####[facility] LABORATORYIA [id number] [address] HIGH SENSITIVITY TAMIKO 36 ng/L High <12 [facility] Comment on above: Order Comment: Shira feldman Type: BLOOD SPECIMENOrdering Facility: [facility] Address: [address] [place] [address] Result Comment: When assessing risk for acute [...] #### H STNT ####[facility] LABORATORYIA [id number] [address] STATES OF [facility] HISTORY PHYSICALon HISTORY PHYSICAL Normal [facility] NURSING PROGon 07-08-2021 NURSING PROG Normal [facility] OPERATIVE NOon 07-08-2021 OPERATIVE NO Normal [facility] Prot CSF-mCncon 07-08-2021 Protein (CSF) [Mass/Vol] 33 mg/dL Normal 15-45 [facility] Comment on above: Order Comment: Speci men Type: CEREBROSPINAL FLUIDOrdering Facility: [facility] Address: [address] [place] [address] Performed By: #### 2 880-3, 2342-4 ####[facility] LABORATORYCLIA [id number] [address] [place] SARS-CoV-2 RNA Resp Ql MEGAN+p robeon 07-08-2021 SARS-CoV-2 (COVID-19) RNA MEGAN+probe Ql (Resp) COVID 19 RESULT: SARS-CoV-2 (Agent of COVID-19) Not Detected by RT-PCR or equivalent method. This test has been authorized by FDA under an Emergency Use Authorization (EUA). Normal [facility] Comment on above: Performed By: #### 9 4500-6 ####[facility] LABORATORYCLIA [id number] [address] [place] STAPH AUREUS PCRon 2 S. aureus and MRSA panel MEGAN+probe (Nose) Normal Negative [facility] Comment on above: Order Comment: Speci men Type: SWAB OF INTERNAL NOSEOrdering Facility: [facility] Address: [address] [place] [address] Result Comment: Nega tive for Staphylococcus aureus by PCR.Negative for MRSA by PCR Performed By: #### S APCR ####[facility] LABORATORYCLIA [id number] [place] [address] [place] Urinalysis complete panel (U )on 07-08-2021 Bacteria LM.HPF (Urine sed) [#/Area] Few Abnormal None Seen [facility] Comment on above: Order Comment: Speci men Type: URINE SPECIMENOrdering Facility: [facility] Address: [address] [place] [address] Performed By: #### 2 4356-8 ####[facility] LABORATORYCLIA [id number] [facility] [address] Bilirubin Ql (U) Negative Normal Negative [facility] Comment on above: Order Comment: Speci men Type: URINE SPECIMENOrdering Facility: [facility] Address: [address] [place] [address] Performed By: #### 2 4356-8 ####[facility] LABORATORYCLIA [id number] [address] Clarity (Unsp spec) Turbid Abnormal Clear [facility] Comment on above: Order Comment: Speci men Type: URINE SPECIMENOrdering Facility: [facility] Address: [address] [place] [address] Performed By: #### 2 4356-8 ####[facility]ORATORYCLIA [id number] [address] Color (U) Light Yellow Normal yellow [facility] Comment on above: Order Comment: Speci men Type: URINE SPECIMENOrdering Facility: [facility] Address: [address] [place] [address] Performed By: #### 2 4356-8 ####[facility]ORATORYCLIA [id number] [address] Glucose Test strip (U) [Mass/Vol] Negative Normal Negative [facility] Comment on above: Order Comment: Speci men Type: URINE SPECIMENOrdering Facility: [facility] Address: [address] [place] [address] Performed By: #### 2 4356-8 ####[facility]ORATORYCLIA [id number] [address] STATES [facility] Hemoglobin Ql (U) Negative Normal Negative [facility] Comment on above: Order Comment: Speci men Type: URINE SPECIMENOrdering Facility: [facility] Address: [address] [place] [address] Performed By: #### 2 4356-8 ####[facility] LABORATORYCLIA [id number] [address] OF [place] Hyaline casts (Urine sed) [#/Area] 1-3 /LPF Abnormal 0 /LPF [facility] Comment on above: Order Comment: Speci men Type: URINE SPECIMENOrdering Facility: [facility] Address: [address] [place] [address] Performed By: #### 2 4356-8 ####[facility]ORATORYCLIA [id number] [address] STATES [facility] Ketones Ql (U) Negative Normal Negative [facility] Comment on above: Order Comment: Speci men Type: URINE SPECIMENOrdering Facility: [facility] Address: [address] [place] [address] Performed By: #### 2 4356-8 ####[facility]ORATORYCLIA [id number] [address] Leukocyte esterase Test strip Ql (U) Negative Normal Negative [facility] Comment on above: Order Comment: Speci men Type: URINE SPECIMENOrdering Facility: [facility] Address: [address] [place] [address] Performed By: #### 2 4356-8 ####[facility]ORATORYCLIA [id number] [address] STATES [facility] Nitrite Ql (U) Negative Normal Negative [facility] Comment on above: Order Comment: Speci men Type: URINE SPECIMENOrdering Facility: [facility] Address: [address] [place] [address] Performed By: #### 2 4356-8 ####[facility]ORATORYCLIA [id number] [address] [place] pH (U) 5.0 [pH] Normal 5.0-8.0 [facility] Comment on above: Order Comment: Speci men Type: URINE SPECIMENOrdering Facility: [facility] Address: [address] [place] [address] Performed By: #### 2 4356-8 ####[facility]ORATORYCLIA [id number] [address] [place] Protein (U) [Mass/Vol] Negative Normal Negative [facility] Comment on above: Order Comment: Speci men Type: URINE SPECIMENOrdering Facility: [facility] Address: [address] [place] [address] Performed By: #### 2 4356-8 ####[facility] LABORATORYCLIA [id number] [address] STATES [facility] RBC LM.HPF (Urine sed) [#/Area] 11-25 /HPF Abnormal 0-3 /HPF [facility] Comment on above: Order Comment: Speci men Type: URINE SPECIMENOrdering Facility: [facility] Address: [address] [place] [address] Performed By: #### 2 4356-8 ####[facility]CL[facility] [id number] [address] Specific gravity (U) [Rel density] 1.018 Normal 1.005-1.030 [facility] Comment on above: Order Comment: Speci men Type: URINE SPECIMENOrdering Facility: [facility] Address: [address] [place] [address] Performed By: #### 2 4356-8 ####[facility]ORATORYCLIA [id number] [address] Urobilinogen Ql (U) Normal Normal Negative [facility] Comment on above: Order Comment: Speci men Type: URINE SPECIMENOrdering Facility: [facility] Address: [address] [place] [address] Performed By: #### 2 4356-8 ####[facility] LABORATORYCLIA [id number] [address] WBC LM.HPF (Urine sed) [#/Area] /[HPF] Abnormal 0-5 /HPF [facility] Comment on above: Order Comment: Speci men Type: URINE SPECIMENOrdering Facility: [facility] Address: [address] [place] [address] Performed By: #### 2 4356-8 ####[facility] LABORATORYCLIA [id number] [place] [address] [facility] Vancomycin random [Mass/Vol] on 07-08-2021 Vancomycin [Mass/Vol] 31.0 ug/mL High 10.0-20.0 [facility] Comment on above: Order Comment: Speci men Type: BLOOD SPECIMENOrdering Facility: [facility] Address: [facility] [address] [place] [phone] Result Comment: Refe rence ranges and high/low indicator flags are provided as general guidelines only. The treating physician must determine appropriate target levels/dosing based on the specific clinical situation. Performed By: #### 4 091-5 ####[facility] LABORATORYCLIA [id number] [address] XR ABD 2V SUPINE W UPR/DECUB /CTLon 07-08-2021 XR ABD 2V SUPINE W UPR/DECUB/CTL Normal [facility] XR CHEST 1V FRONTALon 2021 XR CHEST 1V FRONTAL Normal [facility] XR CHEST 1V FRONTAL Normal [facility] XR NECK SOFT TISSUE 2V AP/LA Ton 07-08-2021 XR NECK SOFT TISSUE 2V AP/LAT Normal [facility] XR SKULL 2V AP/LATon 022 XR SKULL 2V AP/LAT Normal [facility] HISTORY PHYSICALon HISTORY PHYSICAL HNO ID: [id number] Author: Amy Beltran MD Service: ? Author Type: Physician Type: HANDP Filed: 06/30/2021 6:42 PM Note Text: Connected Care Unit History and Physical Facility: [facility] Level of Care: Skilled Admission Date: June [...] regarding the above plan. Total time spent [id number] and/or counseling and coordinating care on the skilled care unit for patient was approximately 45 minutes SUBJECTIVE (HISTORY) Chief Complaint: Confusion, infection, blood clot. Andrew Sifuentes is being seen today for intermediate facility (SNF) admission AND management of weakness, tube feed, infected retroperitoneal infection and seizure. HPI: This is a 71 year old male who presents from [facility] with primary admitting diagnosis of [...] CT brain concerning for hydrocephalus. 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 Normal [facility] Basic metabolic 2000 panelon 06-28-2021 Anion gap [Moles/Vol] 7 mmol/L Low 9-18 [facility] Comment on above: Order Comment: Speci men Type: BLOOD SPECIMENOrdering Facility: [facility] Address: [address] Performed By: #### 2 4320-2, ####[facility] LABORATORYCLIA [id number] [place] [address] [place] Calcium [Mass/Vol] 8.8 mg/dL Normal 8.5-10.2 [facility] Comment on above: Order Comment: Speci men Type: BLOOD SPECIMENOrdering Facility: [facility] Address: [address] [place] [address] Performed By: #### 2 4320-06, ####[facility] LABORATORYCLIA [id number] [place] [address] [place] Chloride [Moles/Vol] 103 mmol/L Normal 97-105 [facility] Comment on above: Order Comment: Speci men Type: BLOOD SPECIMENOrdering Facility: [facility] Address: [address] [place] [address] Performed By: #### 2 4320-06, ####[facility] LABORATORYCLIA [id number] [place] [address] [place] CO2 [Moles/Vol] 28 mmol/L Normal 22-30 [facility] Comment on above: Order Comment: Speci men Type: BLOOD SPECIMENOrdering Facility: [facility] Address: [address] [place] [address] Performed By: #### 2 4320-06, ####[facility] LABORATORYCLIA [id number] [place] [address] [place] Creatinine [Mass/Vol] 0.57 mg/dL Low 0.73-1.22 [facility] Comment on above: Order Comment: Speci men Type: BLOOD SPECIMENOrdering Facility: [facility] Address: [address] [place] [address] Performed By: #### 2 2, ####[facility]ORATORYCLIA [id number] [place] [address] [place] GFR/1.73 sq M.predicted MDRD (S/P/Bld) [Vol rate/Area] mL/min/{1.73_m2} Normal [facility] Comment on above: Order Comment: Shira feldman Type: BLOOD SPECIMENOrdering Facility: [facility] Address: [address] [phone] Result Comment: >60e GFR (Estimated GFR) Units [...] actual GFR. Performed By: #### 2 4321-2, 06482-1 ####[facility] LABORATORYCLIA [id number] [address] OF [facility] Glucose [Mass/Vol] 120 mg/dL High 74-99 [facility] Comment on above: Order Comment: Shira feldman Type: BLOOD SPECIMENOrdering Facility: [facility] Address: [address] [place], [place] [phone] Result Comment: The [place] [employer] (ADA) [...] 2016.39(Suppl 1). Performed By: #### 2 4321-2, 98640-8 ####[facility] LABORATORYCLIA [id number] [address] [place] Potassium [Moles/Vol] 3.8 mmol/L Normal 3.7-5.1 [facility] Comment on above: Order Comment: Speci men Type: BLOOD SPECIMENOrdering Facility: [facility] Address: [address] [place] [address] Performed By: #### 2 4321-2, ####[facility]ORATORYCLIA [id number] [address] [place] Sodium [Moles/Vol] 138 mmol/L Normal 136-144 [facility] Comment on above: Order Comment: Speci men Type: BLOOD SPECIMENOrdering Facility: [facility] Address: [address] [place] [address] Performed By: #### 2 4321-2, ####[facility]ORATORYCLIA [id number] [address] STATES OF [facility] Urea nitrogen [Mass/Vol] 24 mg/dL Normal 9-24 [facility] Comment on above: Order Comment: Speci men Type: BLOOD SPECIMENOrdering Facility: [facility] Address: [address] [place] [address] Performed By: #### 2 4321-2, ####[facility]ORATORYCLIA [id number] [address] [place] CASE MANAGEMon 06-28-2021 CASE MANAGEM Normal [facility] CBC panel Auto (Bld)on 06-28 Erythrocyte distribution width (RBC) [Ratio] 15.6 % High 11.5-15.0 [facility] Comment on above: Order Comment: Speci men Type: BLOOD SPECIMENOrdering Facility: [facility] Address: [address] [place] [address] Performed By: #### 5 8410-2 ####[facility]ORATORYCLIA [id number] [address] [place] Hematocrit (Bld) [Volume fraction] 30.5 % Low 39.0-51.0 [facility] Comment on above: Order Comment: Speci men Type: BLOOD SPECIMENOrdering Facility: [facility] Address: [address] [place] [address] Performed By: #### 5 8410-2 ####[facility]ORATORYCLIA [id number] [address] STATES OF [facility] Hemoglobin (Bld) [Mass/Vol] 9.4 g/dL Low 13.0-17.0 [facility] Comment on above: Order Comment: Speci men Type: BLOOD SPECIMENOrdering Facility: [facility] Address: [address] [place] [address] Performed By: #### 5 8410-2 ####[facility]ORATORYCLIA [id number] [address] STATES OF [facility] MCH (RBC) [Entitic mass] 27.8 pg Normal 26.0-34.0 [facility] Comment on above: Order Comment: Speci men Type: BLOOD SPECIMENOrdering Facility: [facility] Address: [address] [place] [address] Performed By: #### 5 8410-2 ####[facility]ORATORYCLIA [id number] [address] MCHC (RBC) [Mass/Vol] 30.8 g/dL Normal 30.5-36.0 [facility] Comment on above: Order Comment: Speci men Type: BLOOD SPECIMENOrdering Facility: [facility] Address: [address] [place] [address] Performed By: #### 5 8410-2 ####[facility]ORATORYCLIA [id number] [address] [place] MCV (RBC) [Entitic vol] 90.2 fL Normal 80.0-100.0 [facility] Comment on above: Order Comment: Speci men Type: BLOOD SPECIMENOrdering Facility: [facility] Address: [address] [place] [address] Performed By: #### 5 8410-2 ####[facility]ORATORYCLIA [id number] [address] [place] Nucleated RBC (Bld) [#/Vol] 10*3/uL Normal <0.01 [facility] Comment on above: Order Comment: Speci men Type: BLOOD SPECIMENOrdering Facility: [facility] Address: [address] [place] [address] Performed By: #### 5 8410-2 ####[facility]ORATORYCLIA [id number] [address] [place] Platelet mean volume (Bld) [Entitic vol] 9.9 fL Normal 9.0-12.7 [facility] Comment on above: Order Comment: Speci men Type: BLOOD SPECIMENOrdering Facility: [facility] Address: [address] [place] [address] Performed By: #### 5 8410-2 ####[facility]ORATORYCLIA [id number] [address] [place] Platelets (Bld) [#/Vol] 333 10*3/uL Normal 150-400 [facility] Comment on above: Order Comment: Speci men Type: BLOOD SPECIMENOrdering Facility: [facility] Address: [address] [place] [address] Performed By: #### 5 8410-2 ####[facility]ORATORYCLIA [id number] [address] [place] RBC (Bld) [#/Vol] 3.38 10*6/uL Low 4.20-6.00 [facility] Comment on above: Order Comment: Speci men Type: BLOOD SPECIMENOrdering Facility: [facility] Address: [address] [place] [address] Performed By: #### 5 8410-2 ####[facility]ORATORYCLIA [id number] [address] [place] WBC (Bld) [#/Vol] 9.71 10*3/uL Normal 3.70-11.00 [facility] Comment on above: Order Comment: Speci men Type: BLOOD SPECIMENOrdering Facility: [facility] Address: [address] [place] [address] Performed By: #### 5 8410-2 ####[facility]ORATORYCLIA [id number] [address] CNDSon 06-28-2021 CNDS Normal [facility] CONSULT PROGon 06-28-2021 CONSULT PROG Normal [facility] Magnesium SerPl-mCncon 06-28 Magnesium [Mass/Vol] 2.2 mg/dL Normal 1.7-2.3 [facility] Comment on above: Order Comment: Speci men Type: BLOOD SPECIMENOrdering Facility: [facility] Address: [address] [place] [address] Performed By: #### 2 4321-2, ####[facility]ORATORYCLIA [id number] [address] Vancomycin random [Mass/Vol] on 06-28-2021 Vancomycin [Mass/Vol] 23.0 ug/mL High 10.0-20.0 [facility] Comment on above: Order Comment: Speci men Type: BLOOD SPECIMENOrdering Facility: [facility] Address: [address] [place] [address] Result Comment: Refe rence ranges and high/low indicator flags are provided as general guidelines only. The treating physician must determine appropriate target levels/dosing based on the specific clinical situation. Performed By: #### 4 091-5 ####[facility]ORATORYCLIA [id number] [address] [place] ALLIED HEALTHon 06-27-2021 ALLIED HEALTH Normal [facility] Basic metabolic 2000 panelon 06-27-2021 Anion gap [Moles/Vol] 10 mmol/L Normal 9-18 [facility] Comment on above: Order Comment: Speci men Type: BLOOD SPECIMENOrdering Facility: [facility] Address: [address] [place] [address] Performed By: #### 2 4320-2, ####[facility]ORATORYCLIA [id number] [place] [address] [place] Calcium [Mass/Vol] 8.8 mg/dL Normal 8.5-10.2 [facility] Comment on above: Order Comment: Speci men Type: BLOOD SPECIMENOrdering Facility: [facility] Address: [address] [place] [address] Performed By: #### 2 2, ####[facility]ORATORYCLIA [id number] [place] [address] [place] Chloride [Moles/Vol] 104 mmol/L Normal 97-105 [facility] Comment on above: Order Comment: Speci men Type: BLOOD SPECIMENOrdering Facility: [facility] Address: [address] [place] [address] Performed By: #### 2 4320-06, ####[facility]ORATORYCLIA [id number] [address] [place] CO2 [Moles/Vol] 26 mmol/L Normal 22-30 [facility] Comment on above: Order Comment: Speci men Type: BLOOD SPECIMENOrdering Facility: [facility] Address: [address] [place] [address] Performed By: #### 2 4320-06, ####[facility]ORATORYCLIA [id number] [place] [address] [place] Creatinine [Mass/Vol] 0.57 mg/dL Low 0.73-1.22 [facility] Comment on above: Order Comment: Speci men Type: BLOOD SPECIMENOrdering Facility: [facility] Address: [address] [place] [address] Performed By: #### 2 2, ####[facility]ORATORYCLIA [id number] [place] [address] [place] GFR/1.73 sq M.predicted MDRD (S/P/Bld) [Vol rate/Area] mL/min/{1.73_m2} Normal [facility] Comment on above: Order Comment: Shira feldman Type: BLOOD SPECIMENOrdering Facility: [facility] Address: [address] [phone] Result Comment: >60e GFR (Estimated GFR) Units [...] actual GFR. Performed By: #### 2 4321-2, 27252-5 ####[facility]ORATORYCLIA [id number] [place] [address] [place] Glucose [Mass/Vol] 133 mg/dL High 74-99 [facility] Comment on above: Order Comment: Shira feldman Type: BLOOD SPECIMENOrdering Facility: [facility] Address: [address] [place] [address] Result Comment: The [place] [employer] (ADA) [...] 2016.39(Suppl 1). Performed By: #### 2 4321-2, 25808-8 ####[facility]ORATORYCLIA [id number] [place] [address] [place] Potassium [Moles/Vol] 4.2 mmol/L Normal 3.7-5.1 [facility] Comment on above: Order Comment: Speci men Type: BLOOD SPECIMENOrdering Facility: [facility] Address: [address] [place] [address] Performed By: #### 2 4321-2, ####[facility]ORATORYCLIA [id number] [address] STATES [facility] Sodium [Moles/Vol] 140 mmol/L Normal 136-144 [facility] Comment on above: Order Comment: Speci men Type: BLOOD SPECIMENOrdering Facility: [facility] Address: [address] [place] [address] Performed By: #### 2 4321-2, ####[facility]ORATORYCLIA [id number] [address] STATES OF [facility] Urea nitrogen [Mass/Vol] 24 mg/dL Normal 9-24 [facility] Comment on above: Order Comment: Speci men Type: BLOOD SPECIMENOrdering Facility: [facility] Address: [address] [place] [address] Performed By: #### 2 4321-2, ####[facility]ORATORYCLIA [id number] [address] CASE MANAGEMon 06-27-2021 CASE MANAGEM Normal [facility] CBC panel Auto (Bld)on 06-27 Erythrocyte distribution width (RBC) [Ratio] 15.8 % High 11.5-15.0 [facility] Comment on above: Order Comment: Speci men Type: BLOOD SPECIMENOrdering Facility: [facility] Address: [address] [place] [address] Performed By: #### 5 8410-2 ####[facility]ATORYCLIA [id number] [address] Hematocrit (Bld) [Volume fraction] 31.4 % Low 39.0-51.0 [facility] Comment on above: Order Comment: Speci men Type: BLOOD SPECIMENOrdering Facility: [facility] Address: [address] [place] [address] Performed By: #### 5 8410-2 ####[facility]ATORYCLIA [id number] [address] Hemoglobin (Bld) [Mass/Vol] 9.3 g/dL Low 13.0-17.0 [facility] Comment on above: Order Comment: Speci men Type: BLOOD SPECIMENOrdering Facility: [facility] Address: [address] [place] [address] Performed By: #### 5 8410-2 ####[facility]ORATORYCLIA [id number] [address] MCH (RBC) [Entitic mass] 27.0 pg Normal 26.0-34.0 [facility] Comment on above: Order Comment: Speci men Type: BLOOD SPECIMENOrdering Facility: [facility] Address: [address] [place] [address] Performed By: #### 5 8410-2 ####[facility]ORATORYCLIA [id number] [address] MCHC (RBC) [Mass/Vol] 29.6 g/dL Low 30.5-36.0 [facility] Comment on above: Order Comment: Speci men Type: BLOOD SPECIMENOrdering Facility: [facility] Address: [address] [place] [address] Performed By: #### 5 8410-2 ####[facility]ORATORYCLIA [id number] [address] STATES [facility] MCV (RBC) [Entitic vol] 91.3 fL Normal 80.0-100.0 [facility] Comment on above: Order Comment: Speci men Type: BLOOD SPECIMENOrdering Facility: [facility] Address: [address] [place] [address] Performed By: #### 5 8410-2 ####[facility]ORATORYCLIA [id number] [address] Nucleated RBC (Bld) [#/Vol] 10*3/uL Normal <0.01 [facility] Comment on above: Order Comment: Speci men Type: BLOOD SPECIMENOrdering Facility: [facility] Address: [address] [place] [address] Performed By: #### 5 8410-2 ####[facility]ORATORYCLIA [id number] [place] [address] [place] Platelet mean volume (Bld) [Entitic vol] 10.3 fL Normal 9.0-12.7 [facility] Comment on above: Order Comment: Speci men Type: BLOOD SPECIMENOrdering Facility: [facility] Address: [address] [place] [address] Performed By: #### 5 8410-2 ####[facility]ORATORYCLIA [id number] [address] [place] Platelets (Bld) [#/Vol] 359 10*3/uL Normal 150-400 [facility] Comment on above: Order Comment: Speci men Type: BLOOD SPECIMENOrdering Facility: [facility] Address: [address] [place] [address] Performed By: #### 5 8410-2 ####[facility]ORATORYCLIA [id number] [place] [address] [place] RBC (Bld) [#/Vol] 3.44 10*6/uL Low 4.20-6.00 [facility] Comment on above: Order Comment: Speci men Type: BLOOD SPECIMENOrdering Facility: [facility] Address: [address] [place] [address] Performed By: #### 5 8410-2 ####[facility]ORATORYCLIA [id number] [place] [address] [place] WBC (Bld) [#/Vol] 10.73 10*3/uL Normal 3.70-11.00 [facility] Comment on above: Order Comment: Speci men Type: BLOOD SPECIMENOrdering Facility: [facility] Address: [address] [place] [address] Performed By: #### 5 8410-2 ####[facility]ORATORYCLIA [id number] [place] [address] [place] [facility]esium [facility] Magnesium [Mass/Vol] 2.2 mg/dL Normal 1.7-2.3 [facility] Comment on above: Order Comment: Speci men Type: BLOOD SPECIMENOrdering Facility: [facility] Address: [address] [place] [address] Performed By: #### 2 4321-2, 11516-9 ####[facility]ORATORYCLIA [id number] [address] [place] NT-proBNP [facility]on [facility]27 Natriuretic peptide.B prohormone N-Terminal [Mass/Vol] 184 pg/mL High <125 [facility] Comment on above: Order Comment: Speci men Type: BLOOD SPECIMENOrdering Facility: [facility] Address: [address] [place] [address] Performed By: #### 3 3762-6 ####[facility]ORATORYCLIA [id number] [place] [address] [place] NUTRITIONon 06-27-2021 NUTRITION Normal [facility] THERAPY NTon 06-27-2021 THERAPY NT Normal [facility] THERAPY NT Normal [facility] XR CHEST 1V FRONTALon 2021 XR CHEST 1V FRONTAL Normal [facility] Basic metabolic 2000 panelon 06-26-2021 Anion gap [Moles/Vol] 9 mmol/L Normal 9-18 [facility] Comment on above: Order Comment: Speci men Type: BLOOD SPECIMENOrdering Facility: [facility] Address: [address] [place] [address] Performed By: #### 1 9123-9, 96689-5 ####[facility]ORATORYCLIA [id number] [address] [place] Calcium [Mass/Vol] 8.7 mg/dL Normal 8.5-10.2 [facility] Comment on above: Order Comment: Speci men Type: BLOOD SPECIMENOrdering Facility: [facility] Address: [address] [place] [address] Performed By: #### 1 9123-9, 49104-5 ####[facility]ORATORYCLIA [id number] [place] [address] [place] Chloride [Moles/Vol] 105 mmol/L Normal 97-105 [facility] Comment on above: Order Comment: Speci men Type: BLOOD SPECIMENOrdering Facility: [facility] Address: [address] [place] [address] Performed By: #### 1 9123-9, 24318-0 ####[facility]ORATORYCLIA [id number] [place] [address] [place] CO2 [Moles/Vol] 26 mmol/L Normal 22-30 [facility] Comment on above: Order Comment: Speci men Type: BLOOD SPECIMENOrdering Facility: [facility] Address: [address] [place] [address] Performed By: #### 1 9123-9, 29770-9 ####[facility]ORATORYCLIA [id number] [place] [address] [place] Creatinine [Mass/Vol] 0.56 mg/dL Low 0.73-1.22 [facility] Comment on above: Order Comment: Speci men Type: BLOOD SPECIMENOrdering Facility: [facility] Address: [address] [place] [address] Performed By: #### 1 9123-9, 27595-2 ####[facility]ORATORYCLIA [id number] [place] [address] [place] GFR/1.73 sq M.predicted MDRD (S/P/Bld) [Vol rate/Area] mL/min/{1.73_m2} Normal [facility] Comment on above: Order Comment: Speci men Type: BLOOD SPECIMENOrdering Facility: [facility] Address: [address] [phone] Result Comment: >60e GFR (Estimated GFR) Units [...] actual GFR. Performed By: #### 1 9123-9, 02969-9 ####[facility]CL[facility] [id number] [place] [address] [place] Glucose [Mass/Vol] 134 mg/dL High 74-99 [facility] Comment on above: Order Comment: Shira feldman Type: BLOOD SPECIMENOrdering Facility: [facility] Address: [address] [place] [phone] Result Comment: The [place] [employer] (ADA) [...] 2016.39(Suppl 1). Performed By: #### 1 9123-9, 20583-1 ####[facility]ORATORYCLIA [id number] [place] [address] [place] Potassium [Moles/Vol] 3.8 mmol/L Normal 3.7-5.1 [facility] Comment on above: Order Comment: Shira feldman Type: BLOOD SPECIMENOrdering Facility: [facility] Address: [address] [place] [address] Performed By: #### 1 9123-9, 93332-6 ####[facility]ORATORYCLIA [id number] [address] Sodium [Moles/Vol] 140 mmol/L Normal 136-144 [facility] Comment on above: Order Comment: Speci men Type: BLOOD SPECIMENOrdering Facility: [facility] Address: [address] [place] [address] Performed By: #### 1 9123-9, 25388-2 ####[facility] LABORATORYCLIA [id number] [address] [place] Urea nitrogen [Mass/Vol] 24 mg/dL Normal 9-24 [facility] Comment on above: Order Comment: Speci men Type: BLOOD SPECIMENOrdering Facility: [facility] Address: [address] [place] [address] Performed By: #### 1 91239, 35819-6 ####[facility]ORATORYCLIA [id number] [address] STATES [facility] CBC panel Auto (Bld)on 06-26 Erythrocyte distribution width (RBC) [Ratio] 15.9 % High 11.5-15.0 [facility] Comment on above: Order Comment: Speci men Type: BLOOD SPECIMENOrdering Facility: [facility] Address: [address] [place] [address] Performed By: #### 5 8410-2 ####[facility]ORATORYCLIA [id number] [address] Hematocrit (Bld) [Volume fraction] 29.8 % Low 39.0-51.0 [facility] Comment on above: Order Comment: Speci men Type: BLOOD SPECIMENOrdering Facility: [facility] Address: [address] [place] [address] Performed By: #### 5 8410-2 ####[facility] LABORATORYCLIA [id number] [place] [address] [place] Hemoglobin (Bld) [Mass/Vol] 9.1 g/dL Low 13.0-17.0 [facility] Comment on above: Order Comment: Speci men Type: BLOOD SPECIMENOrdering Facility: [facility] Address: [address] [place] [address] Performed By: #### 5 8410-2 ####[facility] LABORATORYCLIA [id number] [address] MCH (RBC) [Entitic mass] 27.8 pg Normal 26.0-34.0 [facility] Comment on above: Order Comment: Speci men Type: BLOOD SPECIMENOrdering Facility: [facility] Address: [address] [place] [address] Performed By: #### 5 8410-2 ####[facility] LABORATORYCLIA [id number] [address] OF [facility] MCHC (RBC) [Mass/Vol] 30.5 g/dL Normal 30.5-36.0 [facility] Comment on above: Order Comment: Speci men Type: BLOOD SPECIMENOrdering Facility: [facility] Address: [address] [place] [address] Performed By: #### 5 8410-2 ####[facility] LABORATORYCLIA [id number] [address] MCV (RBC) [Entitic vol] 91.1 fL Normal 80.0-100.0 [facility] Comment on above: Order Comment: Speci men Type: BLOOD SPECIMENOrdering Facility: [facility] Address: [address] [place] [address] Performed By: #### 5 8410-2 ####[facility] LABORATORYCLIA [id number] [address] Nucleated RBC (Bld) [#/Vol] 10*3/uL Normal <0.01 [facility] Comment on above: Order Comment: Speci men Type: BLOOD SPECIMENOrdering Facility: [facility] Address: [address] [place] [address] Performed By: #### 5 8410-2 ####[facility]ORATORYCLIA [id number] [address] Platelet mean volume (Bld) [Entitic vol] 10.3 fL Normal 9.0-12.7 [facility] Comment on above: Order Comment: Speci men Type: BLOOD SPECIMENOrdering Facility: [facility] Address: [address] [place] [address] Performed By: #### 5 8410-2 ####[facility]ORATORYCLIA [id number] [address] [place] Platelets (Bld) [#/Vol] 336 10*3/uL Normal 150-400 [facility] Comment on above: Order Comment: Speci men Type: BLOOD SPECIMENOrdering Facility: [facility] Address: [address] [place] [address] Performed By: #### 5 8410-2 ####[facility] LABORATORYCLIA [id number] [address] [place] RBC (Bld) [#/Vol] 3.27 10*6/uL Low 4.20-6.00 [facility] Comment on above: Order Comment: Speci men Type: BLOOD SPECIMENOrdering Facility: [facility] Address: [address] [place] [address] Performed By: #### 5 8410-2 ####[facility] LABORATORYCLIA [id number] [address] [place] WBC (Bld) [#/Vol] 9.14 10*3/uL Normal 3.70-11.00 [facility] Comment on above: Order Comment: Speci men Type: BLOOD SPECIMENOrdering Facility: [facility] Address: [address] [place] [address] Performed By: #### 5 8410-2 ####[facility] LABORATORYCLIA [id number] [address] [facility] CONSULT PROGon 06-26-2021 CONSULT PROG Normal [facility] Magnesium SerPl-mCncon 06-26 Magnesium [Mass/Vol] 2.2 mg/dL Normal 1.7-2.3 [facility] Comment on above: Order Comment: Speci men Type: BLOOD SPECIMENOrdering Facility: [facility] Address: [address] [place] [address] Performed By: #### 1 9123-9, 46053-7 ####[facility] LABORATORYCLIA [id number] [address] [facility] NURSING PROGon 06-26-2021 NURSING PROG Normal [facility] NURSING PROG Normal [facility] Basic metabolic 2000 panelon 06-25-2021 Anion gap [Moles/Vol] 8 mmol/L Low 9-18 [facility] Comment on above: Order Comment: Speci men Type: BLOOD SPECIMENOrdering Facility: [facility] Address: [address] [place] [address] Performed By: #### 2 432-2, ####[facility] LABORATORYCLIA [id number] [place] [address] [place] Calcium [Mass/Vol] 8.8 mg/dL Normal 8.5-10.2 [facility] Comment on above: Order Comment: Speci men Type: BLOOD SPECIMENOrdering Facility: [facility] Address: [address] [place] [address] Performed By: #### 2 432-2, ####[facility] LABORATORYCLIA [id number] [place] [address] [place] Chloride [Moles/Vol] 105 mmol/L Normal 97-105 [facility] Comment on above: Order Comment: Speci men Type: BLOOD SPECIMENOrdering Facility: [facility] Address: [address] [place] [address] Performed By: #### 2 432-2, ####[facility] LABORATORYCLIA [id number] [place] [address] [place] CO2 [Moles/Vol] 27 mmol/L Normal 22-30 [facility] Comment on above: Order Comment: Speci men Type: BLOOD SPECIMENOrdering Facility: [facility] Address: [address] [place] [address] Performed By: #### 2 432-, ####[facility] LABORATORYCLIA [id number] [place] [id number] [place] Creatinine [Mass/Vol] 0.59 mg/dL Low 0.73-1.22 [facility] Comment on above: Order Comment: Speci men Type: BLOOD SPECIMENOrdering Facility: [facility] Address: [address] [place] [address] Performed By: #### 2 43205-08, ####[facility] LABORATORYCLIA [id number] [address] [place] GFR/1.73 sq M.predicted MDRD (S/P/Bld) [Vol rate/Area] mL/min/{1.73_m2} Normal [facility] Comment on above: Order Comment: Speci men Type: BLOOD SPECIMENOrdering Facility: [facility] Address: [address] [place] [address] Result Comment: >60e GFR (Estimated GFR) Units [...] 2 43205-08, ####[facility] LABORATORYCLIA [id number] [place] [address] [place] Glucose [Mass/Vol] 132 mg/dL High 74-99 [facility] Comment on above: Order Comment: Speci men Type: BLOOD SPECIMENOrdering Facility: [facility] Address: [address] [place], [place] [address] Result Comment: The [place] [employer] (ADA) [...] 2016.39(Suppl 1). Performed By: #### 2 4320-06, ####[facility] LABORATORYCLIA [id number] [place] [address] [place] Potassium [Moles/Vol] 3.9 mmol/L Normal 3.7-5.1 [facility] Comment on above: Order Comment: Johni men Type: BLOOD SPECIMENOrdering Facility: [facility] Address: [address] [place], [place] [address] Performed By: #### 2 4320-06, ####[facility] LABORATORYCLIA [id number] [place] [address] [place] Sodium [Moles/Vol] 140 mmol/L Normal 136-144 [facility] Comment on above: Order Comment: Speci men Type: BLOOD SPECIMENOrdering Facility: [facility] Address: [address] Performed By: #### 2 4320-06, ####[facility] LABORATORYCLIA [id number] [place] [address] [place] Urea nitrogen [Mass/Vol] 24 mg/dL Normal 9-24 [facility] Comment on above: Order Comment: Speci men Type: BLOOD SPECIMENOrdering Facility: [facility] Address: [address] [place] [address] Performed By: #### 2 4321-2, 23956-7 ####[facility] LABORATORYCLIA [id number] [address] [place] CASE MANAGEMon 06-25-2021 CASE MANAGEM Normal [facility] CBC panel Auto (Bld)on 06-25 Erythrocyte distribution width (RBC) [Ratio] 15.9 % High 11.5-15.0 [facility] Comment on above: Order Comment: Speci men Type: BLOOD SPECIMENOrdering Facility: [facility] Address: [address] [place] [address] Performed By: #### 5 8410-2 ####[facility] LABORATORYCLIA [id number] [address] [place] Hematocrit (Bld) [Volume fraction] 31.0 % Low 39.0-51.0 [facility] Comment on above: Order Comment: Speci men Type: BLOOD SPECIMENOrdering Facility: [facility] Address: [address] [place] [address] Performed By: #### 5 8410-2 ####[facility] LABORATORYCLIA [id number] [address] STATES [facility] Hemoglobin (Bld) [Mass/Vol] 9.4 g/dL Low 13.0-17.0 [facility] Comment on above: Order Comment: Speci men Type: BLOOD SPECIMENOrdering Facility: [facility] Address: [address] [place] [address] Performed By: #### 5 8410-2 ####[facility] LABORATORYCLIA [id number] [address] [place] MCH (RBC) [Entitic mass] 28.1 pg Normal 26.0-34.0 [facility] Comment on above: Order Comment: Speci men Type: BLOOD SPECIMENOrdering Facility: [facility] Address: [address] [place] [address] Performed By: #### 5 8410-2 ####[facility]ITALCL[facility] [id number] [address] STATES [facility] MCHC (RBC) [Mass/Vol] 30.3 g/dL Low 30.5-36.0 [facility] Comment on above: Order Comment: Speci men Type: BLOOD SPECIMENOrdering Facility: [facility] Address: [address] [place] [address] Performed By: #### 5 8410-2 ####[facility] LABORATORYCLIA [id number] [address] MCV (RBC) [Entitic vol] 92.5 fL Normal 80.0-100.0 [facility] Comment on above: Order Comment: Speci men Type: BLOOD SPECIMENOrdering Facility: [facility] Address: [address] [place] [address] Performed By: #### 5 8410-2 ####[facility] LABORATORYCLIA [id number] [address] Nucleated RBC (Bld) [#/Vol] 10*3/uL Normal <0.01 [facility] Comment on above: Order Comment: Speci men Type: BLOOD SPECIMENOrdering Facility: [facility] Address: [address] [place] [address] Performed By: #### 5 8410-2 ####[facility] LABORATORYCLIA [id number] [address] [place] Platelet mean volume (Bld) [Entitic vol] 10.5 fL Normal 9.0-12.7 [facility] Comment on above: Order Comment: Speci men Type: BLOOD SPECIMENOrdering Facility: [facility] Address: [address] [place] [address] Performed By: #### 5 8410-2 ####[facility] LABORATORYCLIA [id number] [address] [place] Platelets (Bld) [#/Vol] 311 10*3/uL Normal 150-400 [facility] Comment on above: Order Comment: Speci men Type: BLOOD SPECIMENOrdering Facility: [facility] Address: [address] [place] [address] Performed By: #### 5 8410-2 ####[facility] LABORATORYCLIA [id number] [address] [facility] RBC (Bld) [#/Vol] 3.35 10*6/uL Low 4.20-6.00 [facility] Comment on above: Order Comment: Speci men Type: BLOOD SPECIMENOrdering Facility: [facility] Address: [address] [place] [address] Performed By: #### 5 8410-2 ####[facility] LABORATORYCLIA [id number] [address] WBC (Bld) [#/Vol] 9.57 10*3/uL Normal 3.70-11.00 [facility] Comment on above: Order Comment: Speci men Type: BLOOD SPECIMENOrdering Facility: [facility] Address: [address] [place] [address] Performed By: #### 5 8410-2 ####[facility] LABORATORYCLIA [id number] [address] Magnesium SerPl-mCncon 06-25 Magnesium [Mass/Vol] 2.4 mg/dL High 1.7-2.3 [facility] Comment on above: Order Comment: Speci men Type: BLOOD SPECIMENOrdering Facility: [facility] Address: [address] [place] [address] Performed By: #### 2 4321-2, 12241-6 ####[facility]ORATORYCLIA [id number] [address] Basic metabolic 2000 panelon 06-24-2021 Anion gap [Moles/Vol] 9 mmol/L Normal -18 [facility] Comment on above: Order Comment: Speci men Type: BLOOD SPECIMENOrdering Facility: [facility] Address: [address] [place] [address] Performed By: #### 1 9123-9, 76501-0 ####[facility] LABORATORYCLIA [id number] [place] [address] [place] Calcium [Mass/Vol] 8.6 mg/dL Normal 8.5-10.2 [facility] Comment on above: Order Comment: Speci men Type: BLOOD SPECIMENOrdering Facility: [facility] Address: [address] [place] [address] Performed By: #### 1 9123-9, 52242-3 ####[facility] LABORATORYCLIA [id number] [place] [address] [place] Chloride [Moles/Vol] 103 mmol/L Normal 97-105 [facility] Comment on above: Order Comment: Speci men Type: BLOOD SPECIMENOrdering Facility: [facility] Address: [address] [place] [address] Performed By: #### 1 239, 09666-5 ####[facility] LABORATORYCLIA [id number] [place] [address] [place] CO2 [Moles/Vol] 26 mmol/L Normal 22-30 [facility] Comment on above: Order Comment: Speci men Type: BLOOD SPECIMENOrdering Facility: [facility] Address: [address] [place] [address] Performed By: #### 1 91239, ####[facility] LABORATORYCLIA [id number] [place] [address] [place] Creatinine [Mass/Vol] 0.60 mg/dL Low 0.73-1.22 [facility] Comment on above: Order Comment: Speci men Type: BLOOD SPECIMENOrdering Facility: [facility] Address: [address] [place] [address] Performed By: #### 1 9123-9, 78178-4 ####[facility] LABORATORYCLIA [id number] [place] [address] [place] GFR/1.73 sq M.predicted MDRD (S/P/Bld) [Vol rate/Area] mL/min/{1.73_m2} Normal [facility] Comment on above: Order Comment: Shira feldman Type: BLOOD SPECIMENOrdering Facility: [facility] Address: [address] [place] [address] Result Comment: >60e GFR (Estimated GFR) Units [...] actual GFR. Performed By: #### 1 9123-9, 49439-8 ####[facility] LABORATORYCLIA [id number] [place] [address] [place] Glucose [Mass/Vol] 126 mg/dL High 74-99 [facility] Comment on above: Order Comment: Shira feldman Type: BLOOD SPECIMENOrdering Facility: [facility] Address: [place] [phone] Result Comment: The [place] [employer] (ADA) [...] 2016.39(Suppl 1). Performed By: #### 1 9123-9, 34018-0 ####[facility] LABORATORYCLIA [id number] [place] [address] [place] Potassium [Moles/Vol] 3.9 mmol/L Normal 3.7-5.1 [facility] Comment on above: Order Comment: Speci men Type: BLOOD SPECIMENOrdering Facility: [facility] Address: [address] [place] [address] Performed By: #### 1 9123-9, 13713-5 ####[facility]ORATORYCLIA [id number] [place] [address] [place] Sodium [Moles/Vol] 138 mmol/L Normal 136-144 [facility] Comment on above: Order Comment: Speci men Type: BLOOD SPECIMENOrdering Facility: [facility] Address: [address] [place] [address] Performed By: #### 1 9123-9, 38652-4 ####[facility] LABORATORYCLIA [id number] [address] [place] Urea nitrogen [Mass/Vol] 24 mg/dL Normal 9-24 [facility] Comment on above: Order Comment: Speci men Type: BLOOD SPECIMENOrdering Facility: [facility] Address: [address] [place] [address] Performed By: #### 1 9123-9, ####[facility] LABORATORYCLIA [id number] [address] [place] CASE MANAGEMon 06-24-2021 CASE MANAGEM Normal [facility] CASE MANAGEM Normal [facility] CASE MANAGEM Normal [facility] CBC panel Auto (Bld)on 06-24 Erythrocyte distribution width (RBC) [Ratio] 16.1 % High 11.5-15.0 [facility] Comment on above: Order Comment: Speci men Type: BLOOD SPECIMENOrdering Facility: [facility] Address: [address] [place] [address] Performed By: #### 5 8410-2 ####[facility] LABORATORYCLIA [id number] [place] [address] [place] Hematocrit (Bld) [Volume fraction] 31.7 % Low 39.0-51.0 [facility] Comment on above: Order Comment: Speci men Type: BLOOD SPECIMENOrdering Facility: [facility] Address: [address] [place] [address] Performed By: #### 5 8410-2 ####[facility] LABORATORYCLIA [id number] [address] [facility] Hemoglobin (Bld) [Mass/Vol] 9.7 g/dL Low 13.0-17.0 [facility] Comment on above: Order Comment: Speci men Type: BLOOD SPECIMENOrdering Facility: [facility] Address: [address] [place] [address] Performed By: #### 5 8410-2 ####[facility] LABORATORYCLIA [id number] [address] STATES OF [facility] MCH (RBC) [Entitic mass] 28.0 pg Normal 26.0-34.0 [facility] Comment on above: Order Comment: Speci men Type: BLOOD SPECIMENOrdering Facility: [facility] Address: [address] [place] [address] Performed By: #### 5 8410-2 ####[facility] LABORATORYCLIA [id number] [address] MCHC (RBC) [Mass/Vol] 30.6 g/dL Normal 30.5-36.0 [facility] Comment on above: Order Comment: Speci men Type: BLOOD SPECIMENOrdering Facility: [facility] Address: [address] [place] [address] Performed By: #### 5 8410-2 ####[facility] LABORATORYCLIA [id number] [address] MCV (RBC) [Entitic vol] 91.4 fL Normal 80.0-100.0 [facility] Comment on above: Order Comment: Speci men Type: BLOOD SPECIMENOrdering Facility: [facility] Address: [address] [place] [address] Performed By: #### 5 8410-2 ####[facility] LABORATORYCLIA [id number] [address] [place] Nucleated RBC (Bld) [#/Vol] 10*3/uL Normal <0.01 [facility] Comment on above: Order Comment: Speci men Type: BLOOD SPECIMENOrdering Facility: [facility] Address: [address] [place] [address] Performed By: #### 5 8410-2 ####[facility] LABORATORYCLIA [id number] [address] OF [place] Platelet mean volume (Bld) [Entitic vol] 11.0 fL Normal 9.0-12.7 [facility] Comment on above: Order Comment: Speci men Type: BLOOD SPECIMENOrdering Facility: [facility] Address: [address] [place] [address] Performed By: #### 5 8410-2 ####[facility] LABORATORYCLIA [id number] [address] Platelets (Bld) [#/Vol] 358 10*3/uL Normal 150-400 [facility] Comment on above: Order Comment: Speci men Type: BLOOD SPECIMENOrdering Facility: [facility] Address: [address] [place] [address] Performed By: #### 5 8410-2 ####[facility]ORATORYCLIA [id number] [address] [place] RBC (Bld) [#/Vol] 3.47 10*6/uL Low 4.20-6.00 [facility] Comment on above: Order Comment: Speci men Type: BLOOD SPECIMENOrdering Facility: [facility] Address: [address] [place] [address] Performed By: #### 5 8410-2 ####[facility] LABORATORYCLIA [id number] [address] [place] WBC (Bld) [#/Vol] 10.07 10*3/uL Normal 3.70-11.00 [facility] Comment on above: Order Comment: Speci men Type: BLOOD SPECIMENOrdering Facility: [facility] Address: [address] [place] [address] Performed By: #### 5 8410-2 ####[facility] LABORATORYCLIA [id number] [place] [address] [place] Magnesium SerPl-mCncon 06-24 Magnesium [Mass/Vol] 2.3 mg/dL Normal 1.7-2.3 [facility] Comment on above: Order Comment: Speci men Type: BLOOD SPECIMENOrdering Facility: [facility] Address: [address] [place] [address] Performed By: #### 1 9123-9, 53073-0 ####[facility]ORATORYCLIA [id number] [place] [address] [place] ALLIED HEALTHon 06-23-2021 ALLIED HEALTH Normal [facility] Basic metabolic 2000 panelon 06-23-2021 Anion gap [Moles/Vol] 9 mmol/L Normal 9-18 [facility] Comment on above: Order Comment: Speci men Type: BLOOD SPECIMENOrdering Facility: [facility] Address: [address] [place] [address] Performed By: #### 1 9123-9, 23822-8 ####[facility]ORATORYCLIA [id number] [place] [address] [place] Calcium [Mass/Vol] 8.4 mg/dL Low 8.5-10.2 [facility] Comment on above: Order Comment: Speci men Type: BLOOD SPECIMENOrdering Facility: [facility] Address: [address] [place] [address] Performed By: #### 1 9123-9, 67587-7 ####[facility]ORATORYCLIA [id number] [place] [address] [place] Chloride [Moles/Vol] 104 mmol/L Normal 97-105 [facility] Comment on above: Order Comment: Speci men Type: BLOOD SPECIMENOrdering Facility: [facility] Address: [address] [place], [place] [address] [address] Performed By: #### 1 9123-9, 91839-2 ####[facility] LABORATORYCLIA [id number] [address] STATES OF [facility] CO2 [Moles/Vol] 26 mmol/L Normal 22-30 [facility] Comment on above: Order Comment: Speci men Type: BLOOD SPECIMENOrdering Facility: [facility] Address: [address] [place] [address] Performed By: #### 1 9123-9, 04579-7 ####[facility] LABORATORYCLIA [id number] [address] [place] Creatinine [Mass/Vol] 0.62 mg/dL Low 0.73-1.22 [facility] Comment on above: Order Comment: Speci men Type: BLOOD SPECIMENOrdering Facility: [facility] Address: [address] [place] [address] Performed By: #### 1 9123-9, 08698-6 ####[facility]ORATORYCLIA [id number] [address] [place] GFR/1.73 sq M.predicted MDRD (S/P/Bld) [Vol rate/Area] mL/min/{1.73_m2} Normal [facility] Comment on above: Order Comment: Speci men Type: BLOOD SPECIMENOrdering Facility: [facility] Address: [address] [place] [address] Result Comment: >60e GFR (Estimated GFR) Units [...] actual GFR. Performed By: #### 1 9123-9, 51999-5 ####[facility] LABORATORYCLIA [id number] [place] [address] [place] Glucose [Mass/Vol] 111 mg/dL High 74-99 [facility] Comment on above: Order Comment: Speci men Type: BLOOD SPECIMENOrdering Facility: [facility] Address: [address] [place] [address] Result Comment: The [place] [employer] (ADA) [...] 2016.39(Suppl 1). Performed By: #### 1 9123-9, 59776-9 ####[facility] LABORATORYCLIA [id number] [place] [address] [place] Potassium [Moles/Vol] 4.1 mmol/L Normal 3.7-5.1 [facility] Comment on above: Order Comment: Speci men Type: BLOOD SPECIMENOrdering Facility: [facility] Address: [address] [place] [address] Performed By: #### 1 9123-9, 05431-6 ####[facility] LABORATORYCLIA [id number] [place] [address] [place] Sodium [Moles/Vol] 139 mmol/L Normal 136-144 [facility] Comment on above: Order Comment: Speci men Type: BLOOD SPECIMENOrdering Facility: [facility] Address: [address] [place] [address] Performed By: #### 1 9123-9-2 ####[facility] LABORATORYCLIA [id number] [place] [address] [place] Urea nitrogen [Mass/Vol] 26 mg/dL High 9-24 [facility] Comment on above: Order Comment: Speci men Type: BLOOD SPECIMENOrdering Facility: [facility] Address: [address] [place] [address] Performed By: #### 1 9123-9, 03344-7 ####[facility] LABORATORYCLIA [id number] [address] OF [facility] CASE MANAGEMon 06-23-2021 CASE MANAGEM Normal [facility] CBC panel Auto (Bld)on 06-23 Erythrocyte distribution width (RBC) [Ratio] 16.0 % High 11.5-15.0 [facility] Comment on above: Order Comment: Speci men Type: BLOOD SPECIMENOrdering Facility: [facility] Address: [address] [place] [address] Performed By: #### 5 8410-2 ####[facility] LABORATORYCLIA [id number] [address] STATES OF [facility] Hematocrit (Bld) [Volume fraction] 31.1 % Low 39.0-51.0 [facility] Comment on above: Order Comment: Speci men Type: BLOOD SPECIMENOrdering Facility: [facility] Address: [address] [place] [address] Performed By: #### 5 8410-2 ####[facility] LABORATORYCLIA [id number] [place] [address] [place] Hemoglobin (Bld) [Mass/Vol] 9.5 g/dL Low 13.0-17.0 [facility] Comment on above: Order Comment: Speci men Type: BLOOD SPECIMENOrdering Facility: [facility] Address: [address] [place] [address] Performed By: #### 5 8410-2 ####[facility] LABORATORYCLIA [id number] [place] [address] [place] MCH (RBC) [Entitic mass] 28.1 pg Normal 26.0-34.0 [facility] Comment on above: Order Comment: Speci men Type: BLOOD SPECIMENOrdering Facility: [facility] Address: [address] [place] [address] Performed By: #### 5 8410-2 ####[facility] LABORATORYCLIA [id number] [address] MCHC (RBC) [Mass/Vol] 30.5 g/dL Normal 30.5-36.0 [facility] Comment on above: Order Comment: Speci men Type: BLOOD SPECIMENOrdering Facility: [facility] Address: [address] [place] [address] Performed By: #### 5 8410-2 ####[facility] LABORATORYCLIA [id number] [address] MCV (RBC) [Entitic vol] 92.0 fL Normal 80.0-100.0 [facility] Comment on above: Order Comment: Speci men Type: BLOOD SPECIMENOrdering Facility: [facility] Address: [address] [place] [address] Performed By: #### 5 8410-2 ####[facility] LABORATORYCLIA [id number] [address] Nucleated RBC (Bld) [#/Vol] 10*3/uL Normal <0.01 [facility] Comment on above: Order Comment: Speci men Type: BLOOD SPECIMENOrdering Facility: [facility] Address: [address] [place] [address] Performed By: #### 5 8410-2 ####[facility] LABORATORYCLIA [id number] [address] Platelet mean volume (Bld) [Entitic vol] 11.0 fL Normal 9.0-12.7 [facility] Comment on above: Order Comment: Speci men Type: BLOOD SPECIMENOrdering Facility: [facility] Address: [address] [place] [address] Performed By: #### 5 8410-2 ####[facility] LABORATORYCLIA [id number] [place] [address] [place] Platelets (Bld) [#/Vol] 361 10*3/uL Normal 150-400 [facility] Comment on above: Order Comment: Speci men Type: BLOOD SPECIMENOrdering Facility: [facility] Address: [address] [place] [address] Performed By: #### 5 8410-2 ####[facility] LABORATORYCLIA [id number] [place] [address] [place] RBC (Bld) [#/Vol] 3.38 10*6/uL Low 4.20-6.00 [facility] Comment on above: Order Comment: Speci men Type: BLOOD SPECIMENOrdering Facility: [facility] Address: [address] [place] [address] Performed By: #### 5 8410-2 ####[facility] LABORATORYCLIA [id number] [address] [facility] WBC (Bld) [#/Vol] 9.02 10*3/uL Normal 3.70-11.00 [facility] Comment on above: Order Comment: Speci men Type: BLOOD SPECIMENOrdering Facility: [facility] Address: [address] [place] [address] Performed By: #### 5 8410-2 ####[facility] LABORATORYCLIA [id number] [address] [place] CONSULT PROGon 06-23-2021 CONSULT PROG Normal [facility] CONSULT PROG Normal [facility] Magnesium SerPl-mCncon 06-23 Magnesium [Mass/Vol] 2.4 mg/dL High 1.7-2.3 [facility] Comment on above: Order Comment: Speci men Type: BLOOD SPECIMENOrdering Facility: [facility] Address: [address] [place] [address] Performed By: #### 1 9123-9, 02164-6 ####[facility] LABORATORYCLIA [id number] [address] [place] THERAPY NTon 06-23-2021 THERAPY NT Normal [facility] Vancomycin random [Mass/Vol] on 06-23-2021 Vancomycin [Mass/Vol] 22.8 ug/mL High 10.0-20.0 [facility] Comment on above: Order Comment: Speci men Type: BLOOD SPECIMENOrdering Facility: [facility] Address: [address] [place] [address] Result Comment: Refe rence ranges and high/low indicator flags are provided as general guidelines only. The treating physician must determine appropriate target levels/dosing based on the specific clinical situation. Performed By: #### 4 091-5 ####[facility] LABORATORYCLIA [id number] [address] [place] XR MOD BARIUM SWALLOW W SPEE Lore 06-23-2021 XR MOD BARIUM SWALLOW W SPEECH Normal [facility] Basic metabolic 2000 panelon 06-22-2021 Anion gap [Moles/Vol] 6 mmol/L Low 9-18 [facility] Comment on above: Order Comment: Speci men Type: BLOOD SPECIMENOrdering Facility: [facility] Address: [address] [place] [address] Performed By: #### 2 4321-2, 92186-8 ####[facility] LABORATORYCLIA [id number] [place] [address] [place] Calcium [Mass/Vol] 8.5 mg/dL Normal 8.5-10.2 [facility] Comment on above: Order Comment: Speci men Type: BLOOD SPECIMENOrdering Facility: [facility] Address: [address] [place], [place] [address] Performed By: #### 2 4321-2, ####[facility] LABORATORYCLIA [id number] [place] [address] [place] Chloride [Moles/Vol] 105 mmol/L Normal 97-105 [facility] Comment on above: Order Comment: Speci men Type: BLOOD SPECIMENOrdering Facility: [facility] Address: [address] [place], [place] [address] [address] Performed By: #### 2 4321-2, ####[facility] LABORATORYCLIA [id number] [address] [place] CO2 [Moles/Vol] 26 mmol/L Normal 22-30 [facility] Comment on above: Order Comment: Speci men Type: BLOOD SPECIMENOrdering Facility: [facility] Address: [address] [place] [address] Performed By: #### 2 43205-08, ####[facility] LABORATORYCLIA [id number] [address] [place] Creatinine [Mass/Vol] 0.56 mg/dL Low 0.73-1.22 [facility] Comment on above: Order Comment: Speci men Type: BLOOD SPECIMENOrdering Facility: [facility] Address: [address] [place] [address] Performed By: #### 2 43205-08, ####[facility] LABORATORYCLIA [id number] [address] [place] GFR/1.73 sq M.predicted MDRD (S/P/Bld) [Vol rate/Area] mL/min/{1.73_m2} Normal [facility] Comment on above: Order Comment: Speci men Type: BLOOD SPECIMENOrdering Facility: [facility] Address: [address] [place] [address] Result Comment: >60e GFR (Estimated GFR) Units [...] reflect actual GFR. Performed By: #### 2 ####[facility] LABORATORYCLIA [id number] [place] [address] [place] Glucose [Mass/Vol] 120 mg/dL High 74-99 [facility] Comment on above: Order Comment: Speci men Type: BLOOD SPECIMENOrdering Facility: [facility] Address: [address] [place] [address] Result Comment: The [place] [employer] (ADA) [...] Care. 2016.39(Suppl 1). Performed By: #### 2 ####[facility] LABORATORYCLIA [id number] [place] [address] [place] Potassium [Moles/Vol] 4.0 mmol/L Normal 3.7-5.1 [facility] Comment on above: Order Comment: Speci men Type: BLOOD SPECIMENOrdering Facility: [facility] Address: [address] [place], [place] [address] Performed By: #### 2 ####[facility] LABORATORYCLIA [id number] [place] [id number] [place] Sodium [Moles/Vol] 137 mmol/L Normal 136-144 [facility] Comment on above: Order Comment: Speci men Type: BLOOD SPECIMENOrdering Facility: [facility] Address: [address] [place], [place] [address] Performed By: #### 2 ####[facility] LABORATORYCLIA [id number] [address] [place] Urea nitrogen [Mass/Vol] 25 mg/dL High 9-24 [facility] Comment on above: Order Comment: Speci men Type: BLOOD SPECIMENOrdering Facility: [facility] Address: [address] [place] [address] Performed By: #### 2 4321-2, 53327-2 ####[facility] LABORATORYCLIA [id number] [address] [place] CASE MANAGEMon 06-22-2021 CASE MANAGEM Normal [facility] CBC panel Auto (Bld)on 06-22 Erythrocyte distribution width (RBC) [Ratio] 16.0 % High 11.5-15.0 [facility] Comment on above: Order Comment: Speci men Type: BLOOD SPECIMENOrdering Facility: [facility] Address: [address] [place] [address] Performed By: #### 5 8410-2 ####[facility] LABORATORYCLIA [id number] [address] [place] Hematocrit (Bld) [Volume fraction] 30.5 % Low 39.0-51.0 [facility] Comment on above: Order Comment: Speci men Type: BLOOD SPECIMENOrdering Facility: [facility] Address: [address] [place] [address] Performed By: #### 5 8410-2 ####[facility]ORATORYCLIA [id number] [address] [place] Hemoglobin (Bld) [Mass/Vol] 9.3 g/dL Low 13.0-17.0 [facility] Comment on above: Order Comment: Speci men Type: BLOOD SPECIMENOrdering Facility: [facility] Address: [address] [place] [address] Performed By: #### 5 8410-2 ####[facility] LABORATORYCLIA [id number] [address] [place] MCH (RBC) [Entitic mass] 28.4 pg Normal 26.0-34.0 [facility] Comment on above: Order Comment: Speci men Type: BLOOD SPECIMENOrdering Facility: [facility] Address: [address] [place] [address] Performed By: #### 5 8410-2 ####[facility] LABORATORYCLIA [id number] [address] MCHC (RBC) [Mass/Vol] 30.5 g/dL Normal 30.5-36.0 [facility] Comment on above: Order Comment: Speci men Type: BLOOD SPECIMENOrdering Facility: [facility] Address: [address] [place] [address] Performed By: #### 5 8410-2 ####[facility] LABORATORYCLIA [id number] [address] MCV (RBC) [Entitic vol] 93.3 fL Normal 80.0-100.0 [facility] Comment on above: Order Comment: Speci men Type: BLOOD SPECIMENOrdering Facility: [facility] Address: [address] [place] [address] Performed By: #### 5 8410-2 ####[facility] LABORATORYCLIA [id number] [address] Nucleated RBC (Bld) [#/Vol] 10*3/uL Normal <0.01 [facility] Comment on above: Order Comment: Speci men Type: BLOOD SPECIMENOrdering Facility: [facility] Address: [address] [place] [address] Performed By: #### 5 8410-2 ####[facility]ORATORYCLIA [id number] [address] Platelet mean volume (Bld) [Entitic vol] 11.5 fL Normal 9.0-12.7 [facility] Comment on above: Order Comment: Speci men Type: BLOOD SPECIMENOrdering Facility: [facility] Address: [address] [place] [address] Performed By: #### 5 8410-2 ####[facility]ITALCLIA [id number] [address] [place] Platelets (Bld) [#/Vol] 346 10*3/uL Normal 150-400 [facility] Comment on above: Order Comment: Speci men Type: BLOOD SPECIMENOrdering Facility: [facility] Address: [address] [place] [address] Performed By: #### 5 8410-2 ####[facility]ORATORYCLIA [id number] [address] [place] RBC (Bld) [#/Vol] 3.27 10*6/uL Low 4.20-6.00 [facility] Comment on above: Order Comment: Speci men Type: BLOOD SPECIMENOrdering Facility: [facility] Address: [address] [place] [address] Performed By: #### 5 8410-2 ####[facility]ITALCLIA [id number] [address] OF [facility] WBC (Bld) [#/Vol] 9.44 10*3/uL Normal 3.70-11.00 [facility] Comment on above: Order Comment: Speci men Type: BLOOD SPECIMENOrdering Facility: [facility] Address: [address] [place] [address] Performed By: #### 5 8410-2 ####[facility] LABORATORYCLIA [id number] [address] [place] HEMOGLOBIN (HGB)on Hemoglobin (Bld) [Mass/Vol] 9.7 g/dL Low 13.0-17.0 [facility] Comment on above: Order Comment: Speci men Type: BLOOD SPECIMENOrdering Facility: [facility] Address: [address] [place] [address] Performed By: #### H GB ####[facility] LABORATORYCLIA [id number] [address] [place] Magnesium SerPl-mCncon 06-22 Magnesium [Mass/Vol] 2.4 mg/dL High 1.7-2.3 [facility] Comment on above: Order Comment: Speci men Type: BLOOD SPECIMENOrdering Facility: [facility] Address: [address] [place] [address] Performed By: #### 2 4321-2, ####[facility]ORATORYCLIA [id number] [address] OF [facility] THERAPY NTon 06-22-2021 THERAPY NT Normal [facility] THERAPY NT Normal [facility] aPTT PPPon 06-22-2021 aPTT Coag (PPP) [Time] 62.3 s High 23.0-32.4 [facility] Comment on above: Order Comment: Speci men Type: BLOOD SPECIMENOrdering Facility: [facility] Address: [address] [place] [address] Performed By: #### 1 4979-9 ####[facility]ORATORYCLIA [id number] [address] [place] ALLIED HEALTHon 06-21-2021 ALLIED HEALTH Normal [facility] Basic metabolic 2000 panelon 06-21-2021 Anion gap [Moles/Vol] 8 mmol/L Low 9-18 [facility] Comment on above: Order Comment: Speci men Type: BLOOD SPECIMENOrdering Facility: [facility] Address: [address] [place] [address] Performed By: #### 2 4321-2, ####[facility]ORATORYCLIA [id number] [place] [address] [place] Calcium [Mass/Vol] 8.2 mg/dL Low 8.5-10.2 [facility] Comment on above: Order Comment: Speci men Type: BLOOD SPECIMENOrdering Facility: [facility] Address: [address] [place] [address] Performed By: #### 2 4321-2, ####[facility] LABORATORYCLIA [id number] [place] [address] [place] Chloride [Moles/Vol] 108 mmol/L High 97-105 [facility] Comment on above: Order Comment: Speci men Type: BLOOD SPECIMENOrdering Facility: [facility] Address: [address] [place] [address] Performed By: #### 2 4321-2, ####[facility]ORATORYCLIA [id number] [place] [address] [place] CO2 [Moles/Vol] 24 mmol/L Normal 22-30 [facility] Comment on above: Order Comment: Speci men Type: BLOOD SPECIMENOrdering Facility: [facility] Address: [address] [place] [address] Performed By: #### 2 43205-08, ####[facility]ORATORYCLIA [id number] [address] [place] Creatinine [Mass/Vol] 0.61 mg/dL Low 0.73-1.22 [facility] Comment on above: Order Comment: Speci men Type: BLOOD SPECIMENOrdering Facility: [facility] Address: [address] [place] [address] Performed By: #### 2 43205-08, ####[facility]ORATORYCLIA [id number] [address] [place] GFR/1.73 sq M.predicted MDRD (S/P/Bld) [Vol rate/Area] mL/min/{1.73_m2} Normal [facility] Comment on above: Order Comment: Speci men Type: BLOOD SPECIMENOrdering Facility: [facility] Address: [address] [place] [address] Result Comment: >60e GFR (Estimated GFR) Units [...] actual GFR. Performed By: #### 2 4321-, 71668-2 ####[facility] LABORATORYCLIA [id number] [place] [address] [place] Glucose [Mass/Vol] 211 mg/dL High 74-99 [facility] Comment on above: Order Comment: Shira feldman Type: BLOOD SPECIMENOrdering Facility: [facility] Address: [address] [phone] Result Comment: The [place] [employer] (ADA) [...] 2 432-, ####[facility] LABORATORYCLIA [id number] [place] [address] [place] Potassium [Moles/Vol] 4.3 mmol/L Normal 3.7-5.1 [facility] Comment on above: Order Comment: Shira feldman Type: BLOOD SPECIMENOrdering Facility: [facility] Address: [address] [place] [phone] Performed By: #### 2 432-, ####[facility]ORATORYCLIA [id number] [place] [address] [place] Sodium [Moles/Vol] 140 mmol/L Normal 136-144 [facility] Comment on above: Order Comment: Shira feldman Type: BLOOD SPECIMENOrdering Facility: [facility] Address: [address] [place] [address] Performed By: #### 2 4321-2, ####[facility]ORATORYCLIA [id number] [address] STATES [facility] Urea nitrogen [Mass/Vol] 26 mg/dL High 9-24 [facility] Comment on above: Order Comment: Speci men Type: BLOOD SPECIMENOrdering Facility: [facility] Address: [address] [place] [address] Performed By: #### 2 4321-2, ####[facility]ORATORYCLIA [id number] [address] CBC panel Auto (Bld)on 06-21 Erythrocyte distribution width (RBC) [Ratio] 16.1 % High 11.5-15.0 [facility] Comment on above: Order Comment: Speci men Type: BLOOD SPECIMENOrdering Facility: [facility] Address: [address] [place] [address] Performed By: #### 5 8410-2 ####[facility]ORATORYCLIA [id number] [address] Hematocrit (Bld) [Volume fraction] 29.7 % Low 39.0-51.0 [facility] Comment on above: Order Comment: Speci men Type: BLOOD SPECIMENOrdering Facility: [facility] Address: [address] [place] [address] Performed By: #### 5 8410-2 ####[facility]ORATORYCLIA [id number] [address] STATES OF [facility] Hemoglobin (Bld) [Mass/Vol] 9.2 g/dL Low 13.0-17.0 [facility] Comment on above: Order Comment: Speci men Type: BLOOD SPECIMENOrdering Facility: [facility] Address: [address] [place] [address] Performed By: #### 5 8410-2 ####[facility] LABORATORYCLIA [id number] [place] [address] MCH (RBC) [Entitic mass] 28.8 pg Normal 26.0-34.0 [facility] Comment on above: Order Comment: Speci men Type: BLOOD SPECIMENOrdering Facility: [facility] Address: [address] [place] [address] Performed By: #### 5 8410-2 ####[facility]ORATORYCLIA [id number] [address] MCHC (RBC) [Mass/Vol] 31.0 g/dL Normal 30.5-36.0 [facility] Comment on above: Order Comment: Speci men Type: BLOOD SPECIMENOrdering Facility: [facility] Address: [address] [place] [address] Performed By: #### 5 8410-2 ####[facility]ORATORYCLIA [id number] [address] MCV (RBC) [Entitic vol] 93.1 fL Normal 80.0-100.0 [facility] Comment on above: Order Comment: Speci men Type: BLOOD SPECIMENOrdering Facility: [facility] Address: [address] [place] [address] Performed By: #### 5 8410-2 ####[facility]ORATORYCLIA [id number] [address] Nucleated RBC (Bld) [#/Vol] 10*3/uL Normal <0.01 [facility] Comment on above: Order Comment: Speci men Type: BLOOD SPECIMENOrdering Facility: [facility] Address: [address] [place] [address] Performed By: #### 5 8410-2 ####[facility]ORATORYCLIA [id number] [address] Platelet mean volume (Bld) [Entitic vol] 11.6 fL Normal 9.0-12.7 [facility] Comment on above: Order Comment: Speci men Type: BLOOD SPECIMENOrdering Facility: [facility] Address: [address] [place] [address] Performed By: #### 5 8410-2 ####[facility] LABORATORYCLIA [id number] [address] OF [facility] Platelets (Bld) [#/Vol] 347 10*3/uL Normal 150-400 [facility] Comment on above: Order Comment: Speci men Type: BLOOD SPECIMENOrdering Facility: [facility] Address: [address] [place] [address] Performed By: #### 5 8410-2 ####[facility]ORATORYCLIA [id number] [address] [place] RBC (Bld) [#/Vol] 3.19 10*6/uL Low 4.20-6.00 [facility] Comment on above: Order Comment: Speci men Type: BLOOD SPECIMENOrdering Facility: [facility] Address: [address] [place] [address] Performed By: #### 5 8410-2 ####[facility] LABORATORYCLIA [id number] [address] OF [facility] WBC (Bld) [#/Vol] 10.29 10*3/uL Normal 3.70-11.00 [facility] Comment on above: Order Comment: Speci men Type: BLOOD SPECIMENOrdering Facility: [facility] Address: [address] [place] [address] Performed By: #### 5 8410-2 ####[facility]ORATORYCLIA [id number] [address] CONSULT PROGon 06-21-2021 CONSULT PROG Normal [facility] CONSULT PROG Normal [facility] Magnesium SerPl-mCncon 06-21 Magnesium [Mass/Vol] 2.5 mg/dL High 1.7-2.3 [facility] Comment on above: Order Comment: Speci men Type: BLOOD SPECIMENOrdering Facility: [facility] Address: [address] [place] [address] Performed By: #### 2 4321-2, 14278-1 ####[facility] LABORATORYCLIA [id number] [place] [address] [place] NUTRITIONon 06-21-2021 NUTRITION Normal [facility] XR CHEST 1V FRONTALon 2021 XR CHEST 1V FRONTAL Normal [facility] aPTT PPPon 06-21-2021 aPTT Coag (PPP) [Time] 68.5 s High 23.0-32.4 [facility] Comment on above: Order Comment: Speci men Type: BLOOD SPECIMENOrdering Facility: [facility] Address: [address] [place] [address] Performed By: #### 1 4979-9 ####[facility] LABORATORYCLIA [id number] [address] STATES OF [facility] aPTT Coag (PPP) [Time] 57.8 s High 23.0-32.4 [facility] Comment on above: Order Comment: Speci men Type: BLOOD SPECIMENOrdering Facility: [facility] Address: [address] [place] [address] Performed By: #### 1 4979-9 ####[facility] LABORATORYCLIA [id number] [place] [address] [place] Basic metabolic 2000 panelon 06-20-2021 Anion gap [Moles/Vol] 9 mmol/L Normal 9-18 [facility] Comment on above: Order Comment: Speci men Type: BLOOD SPECIMENOrdering Facility: [facility] Address: [address] [place] [address] Performed By: #### 2 4321-2, 05249-5 ####[facility] LABORATORYCLIA [id number] [address] [place] Calcium [Mass/Vol] 8.3 mg/dL Low 8.5-10.2 [facility] Comment on above: Order Comment: Speci men Type: BLOOD SPECIMENOrdering Facility: [facility] Address: [address] [place] [address] Performed By: #### 2 432-2, ####[facility] LABORATORYCLIA [id number] [place] [address] [place] Chloride [Moles/Vol] 111 mmol/L High 97-105 [facility] Comment on above: Order Comment: Speci men Type: BLOOD SPECIMENOrdering Facility: [facility] Address: [address] [place] [address] Performed By: #### 2 432-2, ####[facility] LABORATORYCLIA [id number] [place] [address] [place] CO2 [Moles/Vol] 24 mmol/L Normal 22-30 [facility] Comment on above: Order Comment: Speci men Type: BLOOD SPECIMENOrdering Facility: [facility] Address: [address] [place] [address] Performed By: #### 2 43205-08, ####[facility] LABORATORYCLIA [id number] [address] [place] Creatinine [Mass/Vol] 0.64 mg/dL Low 0.73-1.22 [facility] Comment on above: Order Comment: Speci men Type: BLOOD SPECIMENOrdering Facility: [facility] Address: [address] [place] [address] Performed By: #### 2 43205-08, ####[facility] LABORATORYCLIA [id number] [place] [address] [place] GFR/1.73 sq M.predicted MDRD (S/P/Bld) [Vol rate/Area] mL/min/{1.73_m2} Normal [facility] Comment on above: Order Comment: Speci men Type: BLOOD SPECIMENOrdering Facility: [facility] Address: [address] [place] [address] Result Comment: >60e GFR (Estimated GFR) Units [...] 2 43205-08, ####[facility] LABORATORYCLIA [id number] [place] [address] [place] Glucose [Mass/Vol] 114 mg/dL High 74-99 [facility] Comment on above: Order Comment: Shira feldman Type: BLOOD SPECIMENOrdering Facility: [facility] Address: [address] [phone] Result Comment: The [place] [employer] (ADA) [...] 2 4320-06, ####[facility] LABORATORYCLIA [id number] [place] [address] [place] Potassium [Moles/Vol] 4.1 mmol/L Normal 3.7-5.1 [facility] Comment on above: Order Comment: Shira feldman Type: BLOOD SPECIMENOrdering Facility: [facility] Address: [address] [phone] Performed By: #### 2 43205-08, ####[facility] LABORATORYCLIA [id number] [place] [address] [place] Sodium [Moles/Vol] 144 mmol/L Normal 136-144 [facility] Comment on above: Order Comment: Speci men Type: BLOOD SPECIMENOrdering Facility: [facility] Address: [address] [place] [address] Performed By: #### 2 4321-2, ####[facility] LABORATORYCLIA [id number] [address] STATES OF [facility] Urea nitrogen [Mass/Vol] 27 mg/dL High 9-24 [facility] Comment on above: Order Comment: Speci men Type: BLOOD SPECIMENOrdering Facility: [facility] Address: [address] [place] [address] Performed By: #### 2 432-2, ####[facility] LABORATORYCLIA [id number] [address] OF [facility] CASE MANAGEMon 06-20-2021 CASE MANAGEM Normal [facility] CBC panel Auto (Bld)on 06-20 Erythrocyte distribution width (RBC) [Ratio] 15.9 % High 11.5-15.0 [facility] Comment on above: Order Comment: Speci men Type: BLOOD SPECIMENOrdering Facility: [facility] Address: [address] [place] [address] Performed By: #### 5 8410-2 ####[facility] LABORATORYCLIA [id number] [address] [place] Hematocrit (Bld) [Volume fraction] 31.0 % Low 39.0-51.0 [facility] Comment on above: Order Comment: Speci men Type: BLOOD SPECIMENOrdering Facility: [facility] Address: [address] [place] [address] Performed By: #### 5 8410-2 ####[facility] LABORATORYCLIA [id number] [address] [place] Hemoglobin (Bld) [Mass/Vol] 9.2 g/dL Low 13.0-17.0 [facility] Comment on above: Order Comment: Speci men Type: BLOOD SPECIMENOrdering Facility: [facility] Address: [address] [place] [address] Performed By: #### 5 8410-2 ####[facility] LABORATORYCLIA [id number] MCH (RBC) [Entitic mass] 27.4 pg Normal 26.0-34.0 [facility] Comment on above: Order Comment: Speci men Type: BLOOD SPECIMENOrdering Facility: [facility] Address: [address] [place] [address] Performed By: #### 5 8410-2 ####[facility] [facility]ORYCLIA [id number] [address] MCHC (RBC) [Mass/Vol] 29.7 g/dL Low 30.5-36.0 [facility] Comment on above: Order Comment: Speci men Type: BLOOD SPECIMENOrdering Facility: [facility] Address: [address] [place] [address] Performed By: #### 5 8410-2 ####[facility] LABORATORYCLIA [id number] [address] MCV (RBC) [Entitic vol] 92.3 fL Normal 80.0-100.0 [facility] Comment on above: Order Comment: Speci men Type: BLOOD SPECIMENOrdering Facility: [facility] Address: [address] [place] [address] Performed By: #### 5 8410-2 ####[facility] LABORATORYCLIA [id number] [address] Nucleated RBC (Bld) [#/Vol] 10*3/uL Normal <0.01 [facility] Comment on above: Order Comment: Speci men Type: BLOOD SPECIMENOrdering Facility: [facility] Address: [address] [place] [address] Performed By: #### 5 8410-2 ####[facility] LABORATORYCLIA [id number] [address] Platelet mean volume (Bld) [Entitic vol] 11.5 fL Normal 9.0-12.7 [facility] Comment on above: Order Comment: Speci men Type: BLOOD SPECIMENOrdering Facility: [facility] Address: [address] [place] [address] Performed By: #### 5 8410-2 ####[facility] LABORATORYCLIA [id number] [address] [place] Platelets (Bld) [#/Vol] 343 10*3/uL Normal 150-400 [facility] Comment on above: Order Comment: Speci men Type: BLOOD SPECIMENOrdering Facility: [facility] Address: [address] [place] [address] Performed By: #### 5 8410-2 ####[facility] LABORATORYCLIA [id number] [address] RBC (Bld) [#/Vol] 3.36 10*6/uL Low 4.20-6.00 [facility] Comment on above: Order Comment: Speci men Type: BLOOD SPECIMENOrdering Facility: [facility] Address: [address] [place] [address] Performed By: #### 5 8410-2 ####[facility] LABORATORYCLIA [id number] [address] WBC (Bld) [#/Vol] 10.71 10*3/uL Normal 3.70-11.00 [facility] Comment on above: Order Comment: Speci men Type: BLOOD SPECIMENOrdering Facility: [facility] Address: [address] [place] [address] Performed By: #### 5 8410-2 ####[facility] LABORATORYCLIA [id number] [address] CONSULT PROGon 06-20-2021 CONSULT PROG Normal [facility] HEMOGLOBIN (HGB)on 2 Hemoglobin (Bld) [Mass/Vol] 9.7 g/dL Low 13.0-17.0 [facility] Comment on above: Order Comment: Speci men Type: BLOOD SPECIMENOrdering Facility: [facility] Address: [address] [place] [address] Performed By: #### H GB ####[facility] LABORATORYCLIA [id number] [address] [place] Magnesium SerPl-mCncon 06-20 Magnesium [Mass/Vol] 2.5 mg/dL High 1.7-2.3 [facility] Comment on above: Order Comment: Speci men Type: BLOOD SPECIMENOrdering Facility: [facility] Address: [address] [place] [address] Performed By: #### 2 4321-2, 28732-7 ####[facility] LABORATORYCLIA [id number] [address] [place] NURSING PROGon 06-20-2021 NURSING PROG Normal [facility] THERAPY NTon 06-20-2021 THERAPY NT Normal [facility] aPTT PPPon 06-20-2021 aPTT Coag (PPP) [Time] 93.5 s High 23.0-32.4 [facility] Comment on above: Order Comment: Speci men Type: BLOOD SPECIMENOrdering Facility: [facility] Address: [address] [place] [address] Performed By: #### 1 4979-9 ####[facility] LABORATORYCLIA [id number] [address] STATES [facility] aPTT Coag (PPP) [Time] 47.1 s High 23.0-32.4 [facility] Comment on above: Order Comment: Speci men Type: BLOOD SPECIMENOrdering Facility: [facility] Address: [address] [place] [address] Performed By: #### 1 4979-9 ####[facility] LABORATORYCLIA [id number] [place] [address] [place] Basic metabolic 2000 panelon 06-19-2021 Anion gap [Moles/Vol] 7 mmol/L Low 9-18 [facility] Comment on above: Order Comment: Speci men Type: BLOOD SPECIMENOrdering Facility: [facility] Address: [address] [place] [address] Performed By: #### 2 4321-2 ####[facility] LABORATORYCLIA [id number] [place] [address] [place] Calcium [Mass/Vol] 8.1 mg/dL Low 8.5-10.2 [facility] Comment on above: Order Comment: Speci men Type: BLOOD SPECIMENOrdering Facility: [facility] Address: [address] [place] [address] Performed By: #### 2 4321-2 ####[facility] LABORATORYCLIA [id number] [place] [address] [place] Chloride [Moles/Vol] 111 mmol/L High 97-105 [facility] Comment on above: Order Comment: Speci men Type: BLOOD SPECIMENOrdering Facility: [facility] Address: [address] [place] [address] Performed By: #### 2 4321-2 ####[facility] LABORATORYCLIA [id number] [place] [address] [place] CO2 [Moles/Vol] 24 mmol/L Normal 22-30 [facility] Comment on above: Order Comment: Speci men Type: BLOOD SPECIMENOrdering Facility: [facility] Address: [address] [place] [address] Performed By: #### 2 4321-2 ####[facility] LABORATORYCLIA [id number] [place] [address] [place] Creatinine [Mass/Vol] 0.71 mg/dL Low 0.73-1.22 [facility] Comment on above: Order Comment: Speci men Type: BLOOD SPECIMENOrdering Facility: [facility] Address: [address] [place] [address] Performed By: #### 2 4321-2 ####[facility]ORATORYCLIA [id number] [place] [address] [place] GFR/1.73 sq M.predicted MDRD (S/P/Bld) [Vol rate/Area] mL/min/{1.73_m2} Normal [facility] Comment on above: Order Comment: Shira feldman Type: BLOOD SPECIMENOrdering Facility: [facility] Address: [address] [place] [address] Result Comment: >60e GFR (Estimated GFR) Units [...] GFR. Performed By: #### 2 4321-2 ####[facility]ITALCLIA [id number] [place] [address] [place] Glucose [Mass/Vol] 110 mg/dL High 74-99 [facility] Comment on above: Order Comment: Shira feldman Type: BLOOD SPECIMENOrdering Facility: [facility] Address: [address] [place] [address] Result Comment: The [place] [employer] (ADA) [...] 2 4321-2 ####[facility]ORATORYCLIA [id number] [address] [place] Potassium [Moles/Vol] 3.7 mmol/L Normal 3.7-5.1 [facility] Comment on above: Order Comment: Speci men Type: BLOOD SPECIMENOrdering Facility: [facility] Address: [address] [place] [address] Performed By: #### 2 4321-2 ####[facility] LABORATORYCLIA [id number] [address] [place] Sodium [Moles/Vol] 142 mmol/L Normal 136-144 [facility] Comment on above: Order Comment: Speci men Type: BLOOD SPECIMENOrdering Facility: [facility] Address: [address] [place] [address] Performed By: #### 2 4321-2 ####[facility] LABORATORYCLIA [id number] [address] STATES [facility] Urea nitrogen [Mass/Vol] 26 mg/dL High 9-24 [facility] Comment on above: Order Comment: Speci men Type: BLOOD SPECIMENOrdering Facility: [facility] Address: [address] [place] [address] Performed By: #### 2 4321-2 ####[facility] LABORATORYCLIA [id number] [address] STATES OF [facility] CBC panel Auto (Bld)on 06-19 Erythrocyte distribution width (RBC) [Ratio] 15.7 % High 11.5-15.0 [facility] Comment on above: Order Comment: Speci men Type: BLOOD SPECIMENOrdering Facility: [facility] Address: [address] [place] [address] Performed By: #### 5 8410-2 ####[facility]ORATORYCLIA [id number] [address] Hematocrit (Bld) [Volume fraction] 30.9 % Low 39.0-51.0 [facility] Comment on above: Order Comment: Speci men Type: BLOOD SPECIMENOrdering Facility: [facility] Address: [address] [place] [address] Performed By: #### 5 8410-2 ####[facility] LABORATORYCLIA [id number] [address] OF [facility] Hemoglobin (Bld) [Mass/Vol] 9.5 g/dL Low 13.0-17.0 [facility] Comment on above: Order Comment: Speci men Type: BLOOD SPECIMENOrdering Facility: [facility] Address: [address] [place] [address] Performed By: #### 5 8410-2 ####[facility] LABORATORYCLIA [id number] [address] MCH (RBC) [Entitic mass] 28.4 pg Normal 26.0-34.0 [facility] Comment on above: Order Comment: Speci men Type: BLOOD SPECIMENOrdering Facility: [facility] Address: [address] [place] [address] Performed By: #### 5 8410-2 ####[facility] LABORATORYCLIA [id number] [address] STATES OF [facility] MCHC (RBC) [Mass/Vol] 30.7 g/dL Normal 30.5-36.0 [facility] Comment on above: Order Comment: Speci men Type: BLOOD SPECIMENOrdering Facility: [facility] Address: [address] [place] [address] Performed By: #### 5 8410-2 ####[facility]ORATORYCLIA [id number] [address] STATES [facility] MCV (RBC) [Entitic vol] 92.2 fL Normal 80.0-100.0 [facility] Comment on above: Order Comment: Speci men Type: BLOOD SPECIMENOrdering Facility: [facility] Address: [address] [place] [address] Performed By: #### 5 8410-2 ####[facility]ORATORYCLIA [id number] [address] Nucleated RBC (Bld) [#/Vol] 10*3/uL Normal <0.01 [facility] Comment on above: Order Comment: Speci men Type: BLOOD SPECIMENOrdering Facility: [facility] Address: [address] [place] [address] Performed By: #### 5 8410-2 ####[facility]ORATORYCLIA [id number] [place] [address] [place] Platelet mean volume (Bld) [Entitic vol] 11.7 fL Normal 9.0-12.7 [facility] Comment on above: Order Comment: Speci men Type: BLOOD SPECIMENOrdering Facility: [facility] Address: [address] [place] [address] Performed By: #### 5 8410-2 ####[facility]ORATORYCLIA [id number] [address] [place] Platelets (Bld) [#/Vol] 323 10*3/uL Normal 150-400 [facility] Comment on above: Order Comment: Speci men Type: BLOOD SPECIMENOrdering Facility: [facility] Address: [address] [place] [address] Performed By: #### 5 8410-2 ####[facility]ORATORYCLIA [id number] [place] [address] [place] RBC (Bld) [#/Vol] 3.35 10*6/uL Low 4.20-6.00 [facility] Comment on above: Order Comment: Speci men Type: BLOOD SPECIMENOrdering Facility: [facility] Address: [address] [place], [place] [address] Performed By: #### 5 8410-2 ####[facility]ORATORYCLIA [id number] [address] [place] WBC (Bld) [#/Vol] 9.53 10*3/uL Normal 3.70-11.00 [facility] Comment on above: Order Comment: Speci men Type: BLOOD SPECIMENOrdering Facility: [facility] Address: [address] [place] [address] Performed By: #### 5 8410-2 ####[facility]ORATORYCLIA [id number] [address] HEMOGLOBIN (HGB)on Hemoglobin (Bld) [Mass/Vol] 9.7 g/dL Low 13.0-17.0 [facility] Comment on above: Order Comment: Speci men Type: BLOOD SPECIMENOrdering Facility: [facility] Address: [address] [place] [address] Performed By: #### H GB ####[facility]ORATORYCLIA [id number] [address] Magnesium SerPl-mCncon 06-19 Magnesium [Mass/Vol] 2.5 mg/dL High 1.7-2.3 [facility] Comment on above: Order Comment: Speci men Type: BLOOD SPECIMENOrdering Facility: [facility] Address: [address] [place] [address] Performed By: #### 1 9123-9, 2777-1 ####[facility]ORATORYCLIA [id number] [address] NURSING PROGon 06-19-2021 NURSING PROG Normal [facility] Phosphate SerPl-mCncon 06-19 Phosphate [Mass/Vol] 2.6 mg/dL Low 2.7-4.8 [facility] Comment on above: Order Comment: Speci men Type: BLOOD SPECIMENOrdering Facility: [facility] Address: [address] [place] [address] Performed By: #### 1 9123-9, 2777-1 ####[facility]ORATORYCLIA [id number] [address] aPTT PPPon 06-19-2021 aPTT Coag (PPP) [Time] 61.9 s High 23.0-32.4 [facility] Comment on above: Order Comment: Speci men Type: BLOOD SPECIMENOrdering Facility: [facility] Address: [address] [address] Performed By: #### 1 4979-9 ####[facility]ORATORYCLIA [id number] [address] aPTT Coag (PPP) [Time] 68.6 s High 23.0-32.4 [facility] Comment on above: Order Comment: Speci men Type: BLOOD SPECIMENOrdering Facility: [facility] Address: [address] [place] [address] Performed By: #### 1 4979-9 ####[facility] LABORATORYCLIA [id number] [address] STATES OF [facility] aPTT Coag (PPP) [Time] 83.2 s High 23.0-32.4 [facility] Comment on above: Order Comment: Speci men Type: BLOOD SPECIMENOrdering Facility: [facility] Address: [address] [place] [address] Performed By: #### 1 4979-9 ####[facility]ORATORYCLIA [id number] [place] [address] [place] Basic metabolic 2000 panelon 06-18-2021 Anion gap [Moles/Vol] 7 mmol/L Low 9-18 [facility] Comment on above: Order Comment: Speci men Type: BLOOD SPECIMENOrdering Facility: [facility] Address: [address] [place] [address] Performed By: #### 2 4321-2, , 2776-05 ####[facility]ORATORYCLIA [id number] [address] [place] Calcium [Mass/Vol] 8.2 mg/dL Low 8.5-10.2 [facility] Comment on above: Order Comment: Speci men Type: BLOOD SPECIMENOrdering Facility: [facility] Address: [address] [place] [address] Performed By: #### 2 4321-2, , 27711-04 ####[facility]ORATORYCLIA [id number] [place] [address] [place] Chloride [Moles/Vol] 115 mmol/L High 97-105 [facility] Comment on above: Order Comment: Speci men Type: BLOOD SPECIMENOrdering Facility: [facility] Address: [address] [place] [address] Performed By: #### 2 4321-2, 13126-4, 2776- ####[facility]ORATORYCLIA [id number] [address] [place] CO2 [Moles/Vol] 23 mmol/L Normal 22-30 [facility] Comment on above: Order Comment: Speci men Type: BLOOD SPECIMENOrdering Facility: [facility] Address: [address] [place] [address] Performed By: #### 2 4321-2, , 2776-05 ####[facility]PITALIA [id number] [address] [place] Creatinine [Mass/Vol] 0.70 mg/dL Low 0.73-1.22 [facility] Comment on above: Order Comment: Speci men Type: BLOOD SPECIMENOrdering Facility: [facility] Address: [address] [place] [address] Performed By: #### 2 4321-2, , 2776-05 ####[facility]ORATORYCLIA [id number] [place] [address] [place] GFR/1.73 sq M.predicted MDRD (S/P/Bld) [Vol rate/Area] mL/min/{1.73_m2} Normal [facility] Comment on above: Order Comment: Speci men Type: BLOOD SPECIMENOrdering Facility: [facility] Address: [address] [place] [address] Result Comment: >60e GFR (Estimated GFR) Units [...] , 2776-05 ####[facility]ORATORYCLIA [id number] [place] [address] [place] Glucose [Mass/Vol] 105 mg/dL High 74-99 [facility] Comment on above: Order Comment: Shira feldman Type: BLOOD SPECIMENOrdering Facility: [facility] Address: [address] [place], [place] [address] Result Comment: The [place] [employer] (ADA) [...] , 2776-05 ####[facility]ORATORYCLIA [id number] [place] [address] [place] Potassium [Moles/Vol] 4.1 mmol/L Normal 3.7-5.1 [facility] Comment on above: Order Comment: Shira feldman Type: BLOOD SPECIMENOrdering Facility: [facility] Address: [address] [place] [address] Performed By: #### 2 4321-2, , 2776-05 ####[facility]ORATORYCLIA [id number] [place] [address] [place] Sodium [Moles/Vol] 145 mmol/L High 136-144 [facility] Comment on above: Order Comment: Speci men Type: BLOOD SPECIMENOrdering Facility: [facility] Address: [address] [place] [address] Performed By: #### 2 4321-2, 46944-1, 2776- ####[facility]ORATORYCLIA [id number] [address] [place] Urea nitrogen [Mass/Vol] 27 mg/dL High 9-24 [facility] Comment on above: Order Comment: Speci men Type: BLOOD SPECIMENOrdering Facility: [facility] Address: [address] [place] [address] Performed By: #### 2 4321-2, , 2776-05 ####[facility]ORATORYCLIA [id number] [address] STATES OF [facility] CALCIUM IONIZED Bon 06-18-19 Calcium.ionized (BldV) [Mass/Vol] 1.22 mmol/L Normal 1.08-1.30 [facility] Comment on above: Order Comment: Speci men Type: BLOOD SPECIMENOrdering Facility: [facility] Address: [address] [place] [address] Performed By: #### I CA ####[facility]ORATORYCLIA [id number] [address] Calcium.ionized adjusted to pH 7.4 (Bld) [Moles/Vol] 1.23 mmol/L Normal 1.08-1.30 [facility] Comment on above: Order Comment: Speci men Type: BLOOD SPECIMENOrdering Facility: [facility] Address: [address] [place] [address] Performed By: #### I CA ####[facility]ORATORYCLIA [id number] [address] [place] CBC panel Auto (Bld)on 06-18 Erythrocyte distribution width (RBC) [Ratio] 15.8 % High 11.5-15.0 [facility] Comment on above: Order Comment: Speci men Type: BLOOD SPECIMENOrdering Facility: [facility] Address: [address] [place] [address] Performed By: #### 5 8410-2 ####[facility]ORATORYCLIA [id number] [address] Hematocrit (Bld) [Volume fraction] 29.5 % Low 39.0-51.0 [facility] Comment on above: Order Comment: Speci men Type: BLOOD SPECIMENOrdering Facility: [facility] Address: [address] [place] [address] Performed By: #### 5 8410-2 ####[facility]ORATORYCLIA [id number] [address] Hemoglobin (Bld) [Mass/Vol] 8.8 g/dL Low 13.0-17.0 [facility] Comment on above: Order Comment: Speci men Type: BLOOD SPECIMENOrdering Facility: [facility] Address: [address] [place] [address] Performed By: #### 5 8410-2 ####[facility]ORATORYCLIA [id number] [address] MCH (RBC) [Entitic mass] 27.4 pg Normal 26.0-34.0 [facility] Comment on above: Order Comment: Speci men Type: BLOOD SPECIMENOrdering Facility: [facility] Address: [address] [place] [address] Performed By: #### 5 8410-2 ####[facility]ORATORYCLIA [id number] [address] [place] MCHC (RBC) [Mass/Vol] 29.8 g/dL Low 30.5-36.0 [facility] Comment on above: Order Comment: Speci men Type: BLOOD SPECIMENOrdering Facility: [facility] Address: [address] [place] [address] Performed By: #### 5 8410-2 ####[facility]ORATORYCLIA [id number] [address] STATES OF [facility] MCV (RBC) [Entitic vol] 91.9 fL Normal 80.0-100.0 [facility] Comment on above: Order Comment: Speci men Type: BLOOD SPECIMENOrdering Facility: [facility] Address: [address] [place] [address] Performed By: #### 5 8410-2 ####[facility]ORATORYCLIA [id number] [address] Nucleated RBC (Bld) [#/Vol] 10*3/uL Normal <0.01 [facility] Comment on above: Order Comment: Speci men Type: BLOOD SPECIMENOrdering Facility: [facility] Address: [address] [place] [address] Performed By: #### 5 8410-2 ####[facility]ATORYCLIA [id number] [address] Platelet mean volume (Bld) [Entitic vol] 11.9 fL Normal 9.0-12.7 [facility] Comment on above: Order Comment: Speci men Type: BLOOD SPECIMENOrdering Facility: [facility] Address: [address] [place] [address] Performed By: #### 5 8410-2 ####[facility]ORATORYCLIA [id number] [address] Platelets (Bld) [#/Vol] 291 10*3/uL Normal 150-400 [facility] Comment on above: Order Comment: Speci men Type: BLOOD SPECIMENOrdering Facility: [facility] Address: [address] [place] [address] Performed By: #### 5 8410-2 ####[facility]ORATORYCLIA [id number] [address] [place] RBC (Bld) [#/Vol] 3.21 10*6/uL Low 4.20-6.00 [facility] Comment on above: Order Comment: Speci men Type: BLOOD SPECIMENOrdering Facility: [facility] Address: [address] [place] [address] Performed By: #### 5 8410-2 ####[facility]ORATORYCLIA [id number] [address] WBC (Bld) [#/Vol] 10.19 10*3/uL Normal 3.70-11.00 [facility] Comment on above: Order Comment: Speci men Type: BLOOD SPECIMENOrdering Facility: [facility] Address: [address] [place] [address] Performed By: #### 5 8410-2 ####[facility]ORATORYCLIA [id number] [address] FERRITIN BLDon 06-18-2021 Ferritin [Mass/Vol] 600.9 ng/mL High 30.3-565.7 [facility] Comment on above: Order Comment: Speci men Type: BLOOD SPECIMENOrdering Facility: [facility] Address: [address] [place] [address] Performed By: #### S ERFOL, IRON, FERR ####[facility]ORATORYCLIA [id number] [address] FOLATE SERUMon 06-18-2021 Folate [Mass/Vol] 14.3 ng/mL Normal >4.7 [facility] Comment on above: Order Comment: Speci men Type: BLOOD SPECIMENOrdering Facility: [facility] Address: [address] [place] [address] Performed By: #### S ERFOL, IRON, FERR ####[facility]ORATORYCLIA [id number] [address] Gas and Carbon monoxide pane l (BldV)on 06-18-2021 Base excess Calc (BldV) [Moles/Vol] 0.5 mmol/L Normal 0-2 [facility] Comment on above: Order Comment: Speci men Type: VENOUS BLOOD SPECIMENOrdering Facility: [facility] Address: [address] [place] [address] Performed By: #### 2 4344-4 ####[facility]ORATORYCLIA [id number] [address] Body temperature 97.34 [degF] Normal [facility] Comment on above: Order Comment: Speci men Type: VENOUS BLOOD SPECIMENOrdering Facility: [facility] Address: [address] [place] [address] Performed By: #### 2 4344-4 ####[facility] LABORATORYCLIA [id number] [address] CALCIUM IONIZED, PH CORRECTED 1.26 mmol/L Normal 1.08-1.30 [facility] Comment on above: Order Comment: Speci men Type: VENOUS BLOOD SPECIMENOrdering Facility: [facility] Address: [address] [place] [address] Performed By: #### 2 4344-4 ####[facility]ORATORYCLIA [id number] [address] Calcium.ionized (BldV) [Mass/Vol] 1.25 mmol/L Normal 1.08-1.30 [facility] Comment on above: Order Comment: Speci men Type: VENOUS BLOOD SPECIMENOrdering Facility: [facility] Address: [address] [place] [address] Performed By: #### 2 4344-4 ####[facility] LABORATORYCLIA [id number] [address] [facility] Carboxyhemoglobin (BldV) [Mass fraction] 1.5 % Normal 0.0-2.0 [facility] Comment on above: Order Comment: Speci men Type: VENOUS BLOOD SPECIMENOrdering Facility: [facility] Address: [address] [place] [address] Result Comment: Carb oxyhemoglobin Reference Range for Smokers: 2.0-8.0% Performed By: #### 2 4344-4 ####[facility] LABORATORYCLIA [id number] [place] [address] [place] CO2 (BldV) [Partial pressure] 38 mm[Hg] Low 42-55 [facility] Comment on above: Order Comment: Speci men Type: VENOUS BLOOD SPECIMENOrdering Facility: [facility] Address: [address] [place] [address] Performed By: #### 2 4344-4 ####[facility] LABORATORYCLIA [id number] [place] [address] [place] CO2 [Moles/Vol] 22.9 mmol/L Low 25-29 [facility] Comment on above: Order Comment: Speci men Type: VENOUS BLOOD SPECIMENOrdering Facility: [facility] Address: [address] [place] [address] Performed By: #### 2 4344-4 ####[facility] LABORATORYCLIA [id number] [address] [place] CO2 adjusted to patient's actual temperature (BldV) [Partial pressure] 37 mmHg Low 42-55 [facility] Comment on above: Order Comment: Speci men Type: VENOUS BLOOD SPECIMENOrdering Facility: [facility] Address: [address] [place] [address] Performed By: #### 2 4344-4 ####[facility] LABORATORYCLIA [id number] [place] [address] [place] Glucose [Mass/Vol] 103 mg/dL Normal 60-105 [facility] Comment on above: Order Comment: Speci men Type: VENOUS BLOOD SPECIMENOrdering Facility: [facility] Address: [address] [place] [address] Performed By: #### 2 4344-4 ####[facility]ORATORYCLIA [id number] [place] [address] [place] HCO3 (Bld) [Moles/Vol] 24.4 mmol/L Normal 24-28 [facility] Comment on above: Order Comment: Speci men Type: VENOUS BLOOD SPECIMENOrdering Facility: [facility] Address: [address] [place] [address] Performed By: #### 2 4344-4 ####[facility] LABORATORYCLIA [id number] [address] [place] Hematocrit (Bld) [Volume fraction] 28.7 % Low 39.0-51.0 [facility] Comment on above: Order Comment: Speci men Type: VENOUS BLOOD SPECIMENOrdering Facility: [facility] Address: [address] [place] [address] Performed By: #### 2 4344-4 ####[facility] LABORATORYCLIA [id number] [address] [place] Hemoglobin (Bld) [Mass/Vol] 9.3 g/dL Low 13.0-17.0 [facility] Comment on above: Order Comment: Speci men Type: VENOUS BLOOD SPECIMENOrdering Facility: [facility] Address: [address] [place] [address] Performed By: #### 2 4344-4 ####[facility] LABORATORYCLIA [id number] [address] Methemoglobin (Bld) [Mass fraction] % Normal 0.0-1.5 [facility] Comment on above: Order Comment: Speci men Type: VENOUS BLOOD SPECIMENOrdering Facility: [facility] Address: [address] [place] [address] Performed By: #### 2 4344-4 ####[facility] LABORATORYCLIA [id number] [address] [place] O2 THERAPY Ventilator Normal [facility] Comment on above: Order Comment: Speci men Type: VENOUS BLOOD SPECIMENOrdering Facility: [facility] Address: [address] [place] [address] Performed By: #### 2 4344-4 ####[facility] LABORATORYCLIA [id number] [address] Oxygen (BldV) [Partial pressure] 37 mm[Hg] Normal 35-45 [facility] Comment on above: Order Comment: Speci men Type: VENOUS BLOOD SPECIMENOrdering Facility: [facility] Address: [address] [address] Performed By: #### 2 4344-4 ####[facility]ORATORYCLIA [id number] [address] OF [facility] Oxygen adjusted to patient's actual temperature (BldV) [Partial pressure] 35.1 mmHg Normal 35-45 [facility] Comment on above: Order Comment: Speci men Type: VENOUS BLOOD SPECIMENOrdering Facility: [facility] Address: [address] [place] [address] Performed By: #### 2 4344-4 ####[facility] LABORATORYCLIA [id number] [address] Oxygen saturation in Blood 67.1 % Normal 60-85 [facility] Comment on above: Order Comment: Speci men Type: VENOUS BLOOD SPECIMENOrdering Facility: [facility] Address: [address] [place] [address] Performed By: #### 2 4344-4 ####[facility] LABORATORYCLIA [id number] [address] Oxyhemoglobin (BldV) [Mass fraction] 66 % Normal 60-85 [facility] Comment on above: Order Comment: Speci men Type: VENOUS BLOOD SPECIMENOrdering Facility: [facility] Address: [address] [place] [address] Performed By: #### 2 4344-4 ####[facility] LABORATORYCLIA [id number] [address] [place] pH (BldV) 7.42 [pH] Normal 7.32-7.42 [facility] Comment on above: Order Comment: Speci men Type: VENOUS BLOOD SPECIMENOrdering Facility: [facility] Address: [address] [place] [address] Performed By: #### 2 4344-4 ####[facility] LABORATORYCLIA [id number] [address] [place] pH adjusted to patient's actual temperature (BldV) 7.43 High 7.32-7.42 [facility] Comment on above: Order Comment: Speci men Type: VENOUS BLOOD SPECIMENOrdering Facility: [facility] Address: [address] [place] [address] Performed By: #### 2 4344-4 ####[facility] LABORATORYCLIA [id number] [address] [place] Potassium [Moles/Vol] 4.0 mmol/L Normal 3.5-5.0 [facility] Comment on above: Order Comment: Speci men Type: VENOUS BLOOD SPECIMENOrdering Facility: [facility] Address: [address] [place] [address] Performed By: #### 2 4344-4 ####[facility] LABORATORYCLIA [id number] [address] STATES OF [facility] Sodium [Moles/Vol] 146 mmol/L High 136-144 [facility] Comment on above: Order Comment: Speci men Type: VENOUS BLOOD SPECIMENOrdering Facility: [facility] Address: [address] [place] [address] Performed By: #### 2 4344-4 ####[facility] LABORATORYCLIA [id number] [address] [place] HEMOGLOBIN (HGB)on Hemoglobin (Bld) [Mass/Vol] 9.2 g/dL Low 13.0-17.0 [facility] Comment on above: Order Comment: Speci men Type: BLOOD SPECIMENOrdering Facility: [facility] Address: [address] [place] [address] Performed By: #### H GB ####[facility] LABORATORYCLIA [id number] [address] [place] IRON + TIBCon 06-18-2021 Iron [Mass/Vol] 27 ug/dL Low 41-186 [facility] Comment on above: Order Comment: Speci men Type: BLOOD SPECIMENOrdering Facility: [facility] Address: [address] [place] [address] Performed By: #### S ERFOL, IRON, FERR ####[facility] LABORATORYCLIA [id number] [address] Iron binding capacity [Mass/Vol] 141 ug/dL Low 232-386 [facility] Comment on above: Order Comment: Speci men Type: BLOOD SPECIMENOrdering Facility: [facility] Address: [address] [place] [address] Performed By: #### S ERFOL, IRON, FERR ####[facility] LABORATORYCLIA [id number] [address] Iron saturation [Mass fraction] 19 % Normal 15-57 [facility] Comment on above: Order Comment: Speci men Type: BLOOD SPECIMENOrdering Facility: [facility] Address: [address] [place] [address] Performed By: #### S ERFOL, IRON, FERR ####[facility]ORATORYCLIA [id number] [address] Magnesium SerPl-mCncon 06-18 Magnesium [Mass/Vol] 2.5 mg/dL High 1.7-2.3 [facility] Comment on above: Order Comment: Speci men Type: BLOOD SPECIMENOrdering Facility: [facility] Address: [address] [place] [address] Performed By: #### 2 4321-2, , 2776-05 ####[facility] LABORATORYCLIA [id number] [address] [place] NURSING PROGon 06-18-2021 NURSING PROG Normal [facility] Phosphate SerPl-mCncon 06-18 Phosphate [Mass/Vol] 3.0 mg/dL Normal 2.7-4.8 [facility] Comment on above: Order Comment: Speci men Type: BLOOD SPECIMENOrdering Facility: [facility] Address: [address] [place] [address] Performed By: #### 2 4321-2, , 2776-05 ####[facility] LABORATORYCLIA [id number] [address] [place] THERAPY NTon 06-18-2021 THERAPY NT Normal [facility] aPTT PPPon 06-18-2021 aPTT Coag (PPP) [Time] 43.0 s High 23.0-32.4 [facility] Comment on above: Order Comment: Speci men Type: BLOOD SPECIMENOrdering Facility: [facility] Address: [address] [place] [address] Performed By: #### 1 4979-9 ####[facility] LABORATORYCLIA [id number] [address] aPTT Coag (PPP) [Time] 60.6 s High 23.0-32.4 [facility] Comment on above: Order Comment: Speci men Type: BLOOD SPECIMENOrdering Facility: [facility] Address: [address] [place] [address] Performed By: #### 1 4979-9 ####[facility]ITALCLIA [id number] [address] aPTT Coag (PPP) [Time] 46.4 s High 23.0-32.4 [facility] Comment on above: Order Comment: Speci men Type: BLOOD SPECIMENOrdering Facility: [facility] Address: [address] [place] [address] Performed By: #### 1 4979-9 ####[facility] LABORATORYCLIA [id number] [address] OF [facility] Basic metabolic 2000 panelon 06-17-2021 Anion gap [Moles/Vol] 7 mmol/L Low 9-18 [facility] Comment on above: Order Comment: Speci men Type: BLOOD SPECIMENOrdering Facility: [facility] Address: [address] [place] [address] Performed By: #### 2 951-2, 41139-4, 2777-1, 34443-9 ####[facility]ORATORYCLIA [id number] [place] [address] [place] Calcium [Mass/Vol] 8.1 mg/dL Low 8.5-10.2 [facility] Comment on above: Order Comment: Speci men Type: BLOOD SPECIMENOrdering Facility: [facility] Address: [address] [place] [address] Performed By: #### 2 951-2, 61202-1, 2776-1, 06581-7 ####[facility]ORATORYCLIA [id number] [place] [address] [place] Chloride [Moles/Vol] 113 mmol/L High 97-105 [facility] Comment on above: Order Comment: Speci men Type: BLOOD SPECIMENOrdering Facility: [facility] Address: [address] [place] [address] Performed By: #### 2 951-2, , 2776-05, 57850-3 ####[facility]ORATORYCLIA [id number] [place] [address] [place] CO2 [Moles/Vol] 25 mmol/L Normal 22-30 [facility] Comment on above: Order Comment: Speci men Type: BLOOD SPECIMENOrdering Facility: [facility] Address: [address] [place] [address] Performed By: #### 2 951-2, , 2776-05, 42935-5 ####[facility]ORATORYCLIA [id number] [place] [address] [place] Creatinine [Mass/Vol] 0.70 mg/dL Low 0.73-1.22 [facility] Comment on above: Order Comment: Speci men Type: BLOOD SPECIMENOrdering Facility: [facility] Address: [address] [place] [address] Performed By: #### 2 951-2, , 2776-05, 80124-1 ####[facility] LABORATORYCLIA [id number] [place] [address] [place] GFR/1.73 sq M.predicted MDRD (S/P/Bld) [Vol rate/Area] mL/min/{1.73_m2} Normal [facility] Comment on above: Order Comment: Shira feldman Type: BLOOD SPECIMENOrdering Facility: [facility] Address: [address] [place], [place] [address] Result Comment: >60e GFR (Estimated GFR) Units [...] actual GFR. Performed By: #### 2 951-2, 68351-8, 2777-1, 17120-4 ####[facility] LABORATORYCLIA [id number] [place] [address] [place] Glucose [Mass/Vol] 122 mg/dL High 74-99 [facility] Comment on above: Order Comment: Shira feldman Type: BLOOD SPECIMENOrdering Facility: [facility] Address: [address] [place], [place] [address] Result Comment: The [place] [employer] (ADA) [...] 2016.39(Suppl 1). Performed By: #### 2 951-2, 33855-6, 2777-1, 47838-3 ####[facility] LABORATORYCLIA [id number] [address] STATES OF [facility] Potassium [Moles/Vol] 3.5 mmol/L Low 3.7-5.1 [facility] Comment on above: Order Comment: Speci men Type: BLOOD SPECIMENOrdering Facility: [facility] Address: [address] [place] [address] Performed By: #### 2 951-2, 36428-2, 2777-1, 97408-7 ####[facility] LABORATORYCLIA [id number] [address] [place] Urea nitrogen [Mass/Vol] 27 mg/dL High 9- [facility] Comment on above: Order Comment: Speci men Type: BLOOD SPECIMENOrdering Facility: [facility] Address: [address] [place] [address] Performed By: #### 2 951-2, 11763-3, 2777-1, 80167-4 ####[facility]PITALCLIA [id number] [address] OF [facility] CASE MANAGEMon 06-17-2021 CASE MANAGEM Normal [facility] CBC panel Auto (Bld)on 06-17 Erythrocyte distribution width (RBC) [Ratio] 15.9 % High 11.5-15.0 [facility] Comment on above: Order Comment: Speci men Type: BLOOD SPECIMENOrdering Facility: [facility] Address: [address] [place] [address] Performed By: #### 5 8410-2 ####[facility] LABORATORYCLIA [id number] [address] Hematocrit (Bld) [Volume fraction] 28.9 % Low 39.0-51.0 [facility] Comment on above: Order Comment: Speci men Type: BLOOD SPECIMENOrdering Facility: [facility] Address: [address] [place] [address] Performed By: #### 5 8410-2 ####[facility]ORATORYCLIA [id number] [address] Hemoglobin (Bld) [Mass/Vol] 8.8 g/dL Low 13.0-17.0 [facility] Comment on above: Order Comment: Speci men Type: BLOOD SPECIMENOrdering Facility: [facility] Address: [address] [place] [address] Performed By: #### 5 8410-2 ####[facility]ORATORYCLIA [id number] [address] MCH (RBC) [Entitic mass] 28.4 pg Normal 26.0-34.0 [facility] Comment on above: Order Comment: Speci men Type: BLOOD SPECIMENOrdering Facility: [facility] Address: [address] [place] [address] Performed By: #### 5 8410-2 ####[facility]ORATORYCLIA [id number] [address] MCHC (RBC) [Mass/Vol] 30.4 g/dL Low 30.5-36.0 [facility] Comment on above: Order Comment: Speci men Type: BLOOD SPECIMENOrdering Facility: [facility] Address: [address] [place] [address] Performed By: #### 5 8410-2 ####[facility]ORATORYCLIA [id number] [address] MCV (RBC) [Entitic vol] 93.2 fL Normal 80.0-100.0 [facility] Comment on above: Order Comment: Speci men Type: BLOOD SPECIMENOrdering Facility: [facility] Address: [address] [place] [address] Performed By: #### 5 8410-2 ####[facility] LABORATORYCLIA [id number] [address] Nucleated RBC (Bld) [#/Vol] 10*3/uL Normal <0.01 [facility] Comment on above: Order Comment: Speci men Type: BLOOD SPECIMENOrdering Facility: [facility] Address: [address] Performed By: #### 5 8410-2 ####[facility] LABORATORYCLIA [id number] [address] Platelet mean volume (Bld) [Entitic vol] 11.9 fL Normal 9.0-12.7 [facility] Comment on above: Order Comment: Speci men Type: BLOOD SPECIMENOrdering Facility: [facility] Address: [address] [place] [address] Performed By: #### 5 8410-2 ####[facility]ORATORYCLIA [id number] [address] OF [facility] Platelets (Bld) [#/Vol] 257 10*3/uL Normal 150-400 [facility] Comment on above: Order Comment: Speci men Type: BLOOD SPECIMENOrdering Facility: [facility] Address: [address] [place] [address] Performed By: #### 5 8410-2 ####[facility]ORATORYCLIA [id number] [address] [place] RBC (Bld) [#/Vol] 3.10 10*6/uL Low 4.20-6.00 [facility] Comment on above: Order Comment: Speci men Type: BLOOD SPECIMENOrdering Facility: [facility] Address: [address] [place] [address] Performed By: #### 5 8410-2 ####[facility]ORATORYCLIA [id number] [address] [place] WBC (Bld) [#/Vol] 10.54 10*3/uL Normal 3.70-11.00 [facility] Comment on above: Order Comment: Speci men Type: BLOOD SPECIMENOrdering Facility: [facility] Address: [address] [place] [address] Performed By: #### 5 8410-2 ####[facility]ORATORYCLIA [id number] [address] HEMOGLOBIN (HGB)on Hemoglobin (Bld) [Mass/Vol] 8.8 g/dL Low 13.0-17.0 [facility] Comment on above: Order Comment: Speci men Type: BLOOD SPECIMENOrdering Facility: [facility] Address: [address] [place] [address] Performed By: #### H GB ####[facility] LABORATORYCLIA [id number] [address] OF [facility] Magnesium SerPl-mCncon 06-17 Magnesium [Mass/Vol] 2.5 mg/dL High 1.7-2.3 [facility] Comment on above: Order Comment: Speci men Type: BLOOD SPECIMENOrdering Facility: [facility] Address: [address] [place] [address] Performed By: #### 2 951-2, 20937-3, 2777-1, 14652-4 ####[facility]ORATORYCLIA [id number] [address] NURSING PROGon 06-17-2021 NURSING PROG Normal [facility] NURSING PROG Normal [facility] NURSING PROG Normal [facility] Phosphate SerPl-mCncon 06-17 Phosphate [Mass/Vol] 1.9 mg/dL Low 2.7-4.8 [facility] Comment on above: Order Comment: Speci men Type: BLOOD SPECIMENOrdering Facility: [facility] Address: [address] [place] [address] Performed By: #### 2 951-2, 02858-7, 2777-1, 78440-5 ####[facility] LABORATORYCLIA [id number] [address] OF [facility] Sodium SerPl-sCncon 06-17-19 22 Sodium [Moles/Vol] 144 mmol/L Normal 136-144 [facility] Comment on above: Order Comment: Speci men Type: BLOOD SPECIMENOrdering Facility: [facility] Address: [address] [place] [address] Performed By: #### 2 951-2 ####[facility] LABORATORYCLIA [id number] [address] STATES OF [facility] Sodium [Moles/Vol] 145 mmol/L High 136-144 [facility] Comment on above: Order Comment: Speci men Type: BLOOD SPECIMENOrdering Facility: [facility] Address: [address] [place] [address] Performed By: #### 2 951-2, 12107-0, 2777-1, 09972-1 ####[facility] LABORATORYCLIA [id number] [place] [address] [place] aPTT PPPon 06-17-2021 aPTT Coag (PPP) [Time] 55.8 s High 23.0-32.4 [facility] Comment on above: Order Comment: Speci men Type: BLOOD SPECIMENOrdering Facility: [facility] Address: [address] [place] [address] Performed By: #### 1 4979-9 ####[facility] LABORATORYCLIA [id number] [address] [place] ARTERIAL BLOOD GASESon 06-16 Base excess Calc (Bld) [Moles/Vol] 3 mmol/L High 0-2 [facility] Comment on above: Order Comment: Speci men Type: ARTERIAL BLOOD SPECIMENOrdering Facility: [facility] Address: [address] [place] [address] Performed By: #### A LLBG ####[facility] LABORATORYCLIA [id number] [address] [place] Body temperature 99.14 [degF] Normal [facility] Comment on above: Order Comment: Speci men Type: ARTERIAL BLOOD SPECIMENOrdering Facility: [facility] Address: [address] [place] [address] Performed By: #### A LLBG ####[facility] LABORATORYCLIA [id number] [address] [place] CALCIUM IONIZED, PH CORRECTED 1.21 mmol/L Normal 1.08-1.30 [facility] Comment on above: Order Comment: Speci men Type: ARTERIAL BLOOD SPECIMENOrdering Facility: [facility] Address: [address] [place] [address] Performed By: #### A LLBG ####[facility] LABORATORYCLIA [id number] [place] [address] [place] Calcium.ionized (BldV) [Mass/Vol] 1.17 mmol/L Normal 1.08-1.30 [facility] Comment on above: Order Comment: Speci men Type: ARTERIAL BLOOD SPECIMENOrdering Facility: [facility] Address: [address] [place] [address] Performed By: #### A LLBG ####[facility] LABORATORYCLIA [id number] [address] [place] Carboxyhemoglobin (BldA) [Mass fraction] 1.4 % Normal 0.0-2.0 [facility] Comment on above: Order Comment: Speci men Type: ARTERIAL BLOOD SPECIMENOrdering Facility: [facility] Address: [address] [place] [address] Result Comment: Carb oxyhemoglobin Reference Range for Smokers: 2.0-8.0% Performed By: #### A LLBG ####[facility] LABORATORYCLIA [id number] [place] [address] [place] CO2 (Bld) [Partial pressure] 38 mm Hg Normal 36-46 [facility] Comment on above: Order Comment: Speci men Type: ARTERIAL BLOOD SPECIMENOrdering Facility: [facility] Address: [address] [place] [address] Performed By: #### A LLBG ####[facility] LABORATORYCLIA [id number] [place] [address] [place] CO2 [Moles/Vol] 24.5 mmol/L Normal 22-28 [facility] Comment on above: Order Comment: Speci men Type: ARTERIAL BLOOD SPECIMENOrdering Facility: [facility] Address: [address] [place] [address] Performed By: #### A LLBG ####[facility] LABORATORYCLIA [id number] [address] CO2 adjusted to patient's actual temperature (Bld) [Partial pressure] 38 mmHg Normal 36-46 [facility] Comment on above: Order Comment: Speci men Type: ARTERIAL BLOOD SPECIMENOrdering Facility: [facility] Address: [address] [place] [address] Performed By: #### A LLBG ####[facility] LABORATORYCLIA [id number] [address] [place] Glucose [Mass/Vol] 147 mg/dL High 60-105 [facility] Comment on above: Order Comment: Speci men Type: ARTERIAL BLOOD SPECIMENOrdering Facility: [facility] Address: [address] [place] [address] Performed By: #### A LLBG ####[facility] LABORATORYCLIA [id number] [address] HCO3 (Bld) [Moles/Vol] 27 mmol/L High 22-26 [facility] Comment on above: Order Comment: Speci men Type: ARTERIAL BLOOD SPECIMENOrdering Facility: [facility] Address: [address] [place] [address] Performed By: #### A LLBG ####[facility] LABORATORYCLIA [id number] [address] [place] Hematocrit (Bld) [Volume fraction] 31.8 % Low 39.0-51.0 [facility] Comment on above: Order Comment: Speci men Type: ARTERIAL BLOOD SPECIMENOrdering Facility: [facility] Address: [address] [place] [address] Performed By: #### A LLBG ####[facility] LABORATORYCLIA [id number] [address] [place] Hemoglobin (Bld) [Mass/Vol] 10.3 g/dL Low 13.0-17.0 [facility] Comment on above: Order Comment: Speci men Type: ARTERIAL BLOOD SPECIMENOrdering Facility: [facility] Address: [address] [address] Performed By: #### A LLBG ####[facility]ORATORYCLIA [id number] [address] Methemoglobin (Bld) [Mass fraction] 1.0 % Normal 0.0-1.5 [facility] Comment on above: Order Comment: Speci men Type: ARTERIAL BLOOD SPECIMENOrdering Facility: [facility] Address: [address] [place] [address] Performed By: #### A LLBG ####[facility] LABORATORYCLIA [id number] [address] O2 THERAPY Ventilator Normal [facility] Comment on above: Order Comment: Speci men Type: ARTERIAL BLOOD SPECIMENOrdering Facility: GOOD [facility] Address: [address] [place] [address] Performed By: #### A LLBG ####[facility] LABORATORYCLIA [id number] [address] Oxygen (Bld) [Partial pressure] 78 mm Hg Low 85-95 [facility] Comment on above: Order Comment: Speci men Type: ARTERIAL BLOOD SPECIMENOrdering Facility: [facility] Address: [address] [place] [address] Performed By: #### A LLBG ####[facility]ORATORYCLIA [id number] [address] Oxygen adjusted to patient's actual temperature (Bld) [Partial pressure] 79.7 mmHg Low 85-95 [facility] Comment on above: Order Comment: Speci men Type: ARTERIAL BLOOD SPECIMENOrdering Facility: [facility] Address: [address] [address] Performed By: #### A LLBG ####[facility]ORATORYCLIA [id number] [address] [place] OXYGEN SATURATION, ARTERIAL 96 % Normal 95-98 [facility] Comment on above: Order Comment: Speci men Type: ARTERIAL BLOOD SPECIMENOrdering Facility: [facility] Address: [address] [place] [address] Performed By: #### A LLBG ####[facility]ORATORYCLIA [id number] [address] [place] Oxyhemoglobin (BldA) [Mass fraction] 94 % Low 95- [facility] Comment on above: Order Comment: Speci men Type: ARTERIAL BLOOD SPECIMENOrdering Facility: [facility] Address: [address] [place] [address] Performed By: #### A LLBG ####[facility]ORATORYCLIA [id number] [place] [address] [place] pH (Bld) 7.47 [pH] High 7.35-7.45 [facility] Comment on above: Order Comment: Speci men Type: ARTERIAL BLOOD SPECIMENOrdering Facility: [facility] Address: [address] [place] [address] Performed By: #### A LLBG ####[facility]ORATORYCLIA [id number] [address] STATES [facility] pH adjusted to patient's actual temperature (Bld) 7.46 High 7.35-7.45 [facility] Comment on above: Order Comment: Speci men Type: ARTERIAL BLOOD SPECIMENOrdering Facility: [facility] Address: [address] [place] [address] Performed By: #### A LLBG ####[facility]ORATORYCLIA [id number] [place] [address] [place] Potassium [Moles/Vol] 3.7 mmol/L Normal 3.5-5.0 [facility] Comment on above: Order Comment: Speci men Type: ARTERIAL BLOOD SPECIMENOrdering Facility: [facility] Address: [address] [place] [address] Performed By: #### A LLBG ####[facility]ORATORYCLIA [id number] [address] [place] Sodium [Moles/Vol] 155 mmol/L High 136-144 [facility] Comment on above: Order Comment: Speci men Type: ARTERIAL BLOOD SPECIMENOrdering Facility: [facility] Address: [address] [place] [address] Performed By: #### A LLBG ####[facility]ORATORYCLIA [id number] [address] [place] Bacteria Spec Resp Culton Bacteria identified Respiratory culture Nom (Unsp spec) CULTURE, RESPIRATORY: Rare Normal respiratory chris present ORGANISM ID: 1 Few Yeast, not cryptococcus neoformans GRAM STAIN: No organisms seen Few Polymorphonuclear leukocytes Few Epithelial cells Abnormal [facility] Comment on above: Performed By: #### 3 2355-0 ####[facility]ORATORYCLIA [id number] [place] [address] [place] Basic metabolic 2000 panelon 06-16-2021 Anion gap [Moles/Vol] 9 mmol/L Normal 9-18 [facility] Comment on above: Order Comment: Speci men Type: BLOOD SPECIMENOrdering Facility: [facility] Address: [address] [place] [address] Performed By: #### 2 4321-2 ####[facility]ORATORYCLIA [id number] [place] [address] [place] Calcium [Mass/Vol] 8.4 mg/dL Low 8.5-10.2 [facility] Comment on above: Order Comment: Speci men Type: BLOOD SPECIMENOrdering Facility: [facility] Address: [address] [place] [address] Performed By: #### 2 4321-2 ####[facility]ORATORYCLIA [id number] [place] [address] [place] Chloride [Moles/Vol] 120 mmol/L High 97-105 [facility] Comment on above: Order Comment: Speci men Type: BLOOD SPECIMENOrdering Facility: [facility] Address: [address] [place] [address] Performed By: #### 2 4321-2 ####[facility]ORATORYCLIA [id number] [address] STATES OF [facility] CO2 [Moles/Vol] 27 mmol/L Normal 22-30 [facility] Comment on above: Order Comment: Speci men Type: BLOOD SPECIMENOrdering Facility: [facility] Address: [address] [place] [address] Performed By: #### 2 4321-2 ####[facility]ORATORYCLIA [id number] [address] [place] Creatinine [Mass/Vol] 0.75 mg/dL Normal 0.73-1.22 [facility] Comment on above: Order Comment: Speci men Type: BLOOD SPECIMENOrdering Facility: [facility] Address: [address] [place] [address] Performed By: #### 2 4321-2 ####[facility] [id number] [address] [place] GFR/1.73 sq M.predicted MDRD (S/P/Bld) [Vol rate/Area] mL/min/{1.73_m2} Normal [facility] Comment on above: Order Comment: Speci men Type: BLOOD SPECIMENOrdering Facility: [facility] Address: [address] [place] [address] Result Comment: >60e GFR (Estimated GFR) Units [...] 2 4321-2 ####[facility]ORATORYCLIA [id number] [address] [place] Glucose [Mass/Vol] 160 mg/dL High 74-99 [facility] Comment on above: Order Comment: Speci men Type: BLOOD SPECIMENOrdering Facility: [facility] Address: [address] [place] [address] Result Comment: The [place] [employer] (ADA) [...] 2 4321-2 ####[facility]ORATORYCLIA [id number] [place] [address] [place] Potassium [Moles/Vol] 3.1 mmol/L Low 3.7-5.1 [facility] Comment on above: Order Comment: Shira men Type: BLOOD SPECIMENOrdering Facility: [facility] Address: [address] [place] [address] Performed By: #### 2 4321-2 ####[facility]ORATORYCLIA [id number] [place] [address] [place] Sodium [Moles/Vol] 156 mmol/L High 136-144 [facility] Comment on above: Order Comment: Speci men Type: BLOOD SPECIMENOrdering Facility: [facility] Address: [address] [place] [address] Performed By: #### 2 4321-2 ####[facility]ORATORYCLIA [id number] [place] [address] [place] Urea nitrogen [Mass/Vol] 33 mg/dL High 9-24 [facility] Comment on above: Order Comment: Speci men Type: BLOOD SPECIMENOrdering Facility: [facility] Address: [address] [place] [address] Performed By: #### 2 4321-2 ####[facility]ORATORYCLIA [id number] [address] CASE MANAGEMon 06-16-2021 CASE MANAGEM Normal [facility] CBC panel Auto (Bld)on 06-16 Erythrocyte distribution width (RBC) [Ratio] 15.9 % High 11.5-15.0 [facility] Comment on above: Order Comment: Speci men Type: BLOOD SPECIMENOrdering Facility: [facility] Address: [address] [place] [address] Performed By: #### 5 8410-2 ####[facility]ORATORYCLIA [id number] [address] STATES [facility] Hematocrit (Bld) [Volume fraction] 34.6 % Low 39.0-51.0 [facility] Comment on above: Order Comment: Speci men Type: BLOOD SPECIMENOrdering Facility: [facility] Address: [address] [place] [address] Performed By: #### 5 8410-2 ####[facility]ORATORYCLIA [id number] [address] Hemoglobin (Bld) [Mass/Vol] 10.2 g/dL Low 13.0-17.0 [facility] Comment on above: Order Comment: Speci men Type: BLOOD SPECIMENOrdering Facility: [facility] Address: [address] [place] [address] Performed By: #### 5 8410-2 ####[facility]ORATORYCLIA [id number] [address] MCH (RBC) [Entitic mass] 28.5 pg Normal 26.0-34.0 [facility] Comment on above: Order Comment: Speci men Type: BLOOD SPECIMENOrdering Facility: [facility] Address: [address] [place] [address] Performed By: #### 5 8410-2 ####[facility]ORATORYCLIA [id number] [address] STATES [facility] MCHC (RBC) [Mass/Vol] 29.5 g/dL Low 30.5-36.0 [facility] Comment on above: Order Comment: Speci men Type: BLOOD SPECIMENOrdering Facility: [facility] Address: [address] [place] [address] Performed By: #### 5 8410-2 ####[facility]ORATORYCLIA [id number] [address] STATES OF [facility] MCV (RBC) [Entitic vol] 96.6 fL Normal 80.0-100.0 [facility] Comment on above: Order Comment: Speci men Type: BLOOD SPECIMENOrdering Facility: [facility] Address: [address] [place] [address] Performed By: #### 5 8410-2 ####[facility]ORATORYCLIA [id number] [address] Nucleated RBC (Bld) [#/Vol] 10*3/uL Normal <0.01 [facility] Comment on above: Order Comment: Speci men Type: BLOOD SPECIMENOrdering Facility: [facility] Address: [address] [place] [address] Performed By: #### 5 8410-2 ####[facility]ORATORYCLIA [id number] [address] [place] Platelet mean volume (Bld) [Entitic vol] 11.9 fL Normal 9.0-12.7 [facility] Comment on above: Order Comment: Speci men Type: BLOOD SPECIMENOrdering Facility: [facility] Address: [address] [place] [address] Performed By: #### 5 8410-2 ####[facility]ORATORYCLIA [id number] [address] [place] Platelets (Bld) [#/Vol] 269 10*3/uL Normal 150-400 [facility] Comment on above: Order Comment: Speci men Type: BLOOD SPECIMENOrdering Facility: [facility] Address: [address] [place] [address] Performed By: #### 5 8410-2 ####[facility]ORATORYCLIA [id number] [address] STATES OF [facility] RBC (Bld) [#/Vol] 3.58 10*6/uL Low 4.20-6.00 [facility] Comment on above: Order Comment: Speci men Type: BLOOD SPECIMENOrdering Facility: [facility] Address: [address] [place] [address] Performed By: #### 5 8410-2 ####[facility]ORATORYCLIA [id number] [address] WBC (Bld) [#/Vol] 13.11 10*3/uL High 3.70-11.00 [facility] Comment on above: Order Comment: Speci men Type: BLOOD SPECIMENOrdering Facility: [facility] Address: [address] [place] [address] Performed By: #### 5 8410-2 ####[facility]ORATORYCLIA [id number] [address] [place] CONSULTon 06-16-2021 CONSULT Normal [facility] CONSULT PROGon 06-16-2021 CONSULT PROG Normal [facility] CT BRAIN WO IVCONon 06-16-[address] BRAIN WO IVCON Normal [facility] HEMOGLOBIN (HGB)on 2 Hemoglobin (Bld) [Mass/Vol] 8.9 g/dL Low 13.0-17.0 [facility] Comment on above: Order Comment: Speci men Type: BLOOD SPECIMENOrdering Facility: [facility] Address: [address] [place] [address] Performed By: #### H GB ####[facility]ORATORYCLIA [id number] [address] OF [facility] Hemoglobin (Bld) [Mass/Vol] 9.6 g/dL Low 13.0-17.0 [facility] Comment on above: Order Comment: Speci men Type: BLOOD SPECIMENOrdering Facility: [facility] Address: [address] [place] [address] Performed By: #### H GB ####[facility]ORATORYCLIA [id number] [address] [place] Magnesium SerPl-mCncon 06-16 Magnesium [Mass/Vol] 2.7 mg/dL High 1.7-2.3 [facility] Comment on above: Order Comment: Speci men Type: BLOOD SPECIMENOrdering Facility: [facility] Address: [address] [place] [address] Performed By: #### 1 9123-9 ####[facility]ORATORYCLIA [id number] [address] [place] NURSING PROGon 06-16-2021 NURSING PROG Normal [facility] NUTRITIONon 06-16-2021 NUTRITION Normal [facility] Phosphate SerPl-mCncon 06-16 Phosphate [Mass/Vol] 1.4 mg/dL Low 2.7-4.8 [facility] Comment on above: Order Comment: Speci men Type: BLOOD SPECIMENOrdering Facility: [facility] Address: [address] [place] [address] Performed By: #### 2 777-1 ####[facility]ORATORYCLIA [id number] [address] [place] STAPH AUREUS PCRon 2 S. aureus and MRSA panel MEGAN+probe (Nose) Normal Negative [facility] Comment on above: Order Comment: Speci men Type: SWAB OF INTERNAL NOSEOrdering Facility: [facility] Address: [address] [place] [address] Result Comment: Nega tive for Staphylococcus aureus by PCR.Negative for MRSA by PCR Performed By: #### S APCR ####[facility]ORATORYCLIA [id number] [address] [place] Sodium SerPl-sCncon 06-16-19 Sodium [Moles/Vol] 150 mmol/L High 136-144 [facility] Comment on above: Order Comment: Speci men Type: BLOOD SPECIMENOrdering Facility: [facility] Address: [address] [place] [address] Performed By: #### 2 951-2 ####[facility]ORATORYCLIA [id number] [place] [address] [place] Sodium [Moles/Vol] 153 mmol/L High 136-144 [facility] Comment on above: Order Comment: Speci men Type: BLOOD SPECIMENOrdering Facility: [facility] Address: [address] [place] [address] Performed By: #### 2 951-2 ####[facility]ORATORYCLIA [id number] [address] [place] Sodium [Moles/Vol] 158 mmol/L High 136-144 [facility] Comment on above: Order Comment: Speci men Type: BLOOD SPECIMENOrdering Facility: [facility] Address: [address] [place] [address] Performed By: #### 2 951-2 ####[facility]ORATORYCLIA [id number] [address] [place] aPTT PPPon 06-16-2021 aPTT Coag (PPP) [Time] 61.8 s High 23.0-32.4 [facility] Comment on above: Order Comment: Speci men Type: BLOOD SPECIMENOrdering Facility: [facility] Address: [address] [place] [address] Performed By: #### 1 4979-9 ####[facility]ORATORYCLIA [id number] [address] [place] aPTT Coag (PPP) [Time] 57.6 s High 23.0-32.4 [facility] Comment on above: Order Comment: Speci men Type: BLOOD SPECIMENOrdering Facility: [facility] Address: [address] [place] [address] Performed By: #### 1 4979-9 ####[facility]ATORYCLIA [id number] [address] [place] ALLIED HEALTHon 06-15-2021 ALLIED HEALTH Normal [facility] ALLIED HEALTH Normal [facility] ALLIED HEALTH Normal [facility] ALLIED HEALTH Normal [facility] ARTERIAL BLOOD GASESon 06-15 Base excess Calc (Bld) [Moles/Vol] 3 mmol/L High 0-2 [facility] Comment on above: Order Comment: Speci men Type: ARTERIAL BLOOD SPECIMENOrdering Facility: [facility] Address: [address] [place] [address] Performed By: #### A LLBG ####[facility]ATORYCLIA [id number] [address] [place] Body temperature 99.5 [degF] Normal [facility] Comment on above: Order Comment: Speci men Type: ARTERIAL BLOOD SPECIMENOrdering Facility: [facility] Address: [address] [place] [address] Performed By: #### A LLBG ####[facility]ORATORYCLIA [id number] [place] [address] [place] CALCIUM IONIZED, PH CORRECTED 1.34 mmol/L High 1.08-1.30 [facility] Comment on above: Order Comment: Speci men Type: ARTERIAL BLOOD SPECIMENOrdering Facility: [facility] Address: [address] [place] [address] Performed By: #### A LLBG ####[facility]ATORYCLIA [id number] [address] [place] Calcium.ionized (BldV) [Mass/Vol] 1.29 mmol/L Normal 1.08-1.30 [facility] Comment on above: Order Comment: Speci men Type: ARTERIAL BLOOD SPECIMENOrdering Facility: [facility] Address: [address] [place] [address] Performed By: #### A LLBG ####[facility]ATORYCLIA [id number] [address] [place] Carboxyhemoglobin (BldA) [Mass fraction] 1.3 % Normal 0.0-2.0 [facility] Comment on above: Order Comment: Speci men Type: ARTERIAL BLOOD SPECIMENOrdering Facility: [facility] Address: [address] [address] Result Comment: Carb oxyhemoglobin Reference Range for Smokers: 2.0-8.0% Performed By: #### A LLBG ####[facility]ATORYCLIA [id number] [address] [place] CO2 (Bld) [Partial pressure] 37 mm Hg Normal 36-46 [facility] Comment on above: Order Comment: Speci men Type: ARTERIAL BLOOD SPECIMENOrdering Facility: [facility] Address: [address] [address] Performed By: #### A LLBG ####[facility]ORYCLIA [id number] [address] [place] CO2 [Moles/Vol] 24.6 mmol/L Normal 22-28 [facility] Comment on above: Order Comment: Speci men Type: ARTERIAL BLOOD SPECIMENOrdering Facility: [facility] Address: [address] [address] Performed By: #### A LLBG ####[facility]ATORYCLIA [id number] [address] [place] CO2 adjusted to patient's actual temperature (Bld) [Partial pressure] 38 mmHg Normal 36-46 [facility] Comment on above: Order Comment: Speci men Type: ARTERIAL BLOOD SPECIMENOrdering Facility: [facility] Address: [address] [address] Performed By: #### A LLBG ####[facility]ATORYCLIA [id number] [address] [place] FIO2 100 % Normal [facility] Comment on above: Order Comment: Speci men Type: ARTERIAL BLOOD SPECIMENOrdering Facility: [facility] Address: [address] [address] Performed By: #### A LLBG ####[facility]ATORYCLIA [id number] [address] [place] Glucose [Mass/Vol] 159 mg/dL High 60-105 [facility] Comment on above: Order Comment: Speci men Type: ARTERIAL BLOOD SPECIMENOrdering Facility: [facility] Address: [address] [place] [address] Performed By: #### A LLBG ####[facility]ATORYCLIA [id number] [address] [place] HCO3 (Bld) [Moles/Vol] 27 mmol/L High 22-26 [facility] Comment on above: Order Comment: Speci men Type: ARTERIAL BLOOD SPECIMENOrdering Facility: [facility] Address: [address] [place] [address] Performed By: #### A LLBG ####[facility]ATORYCLIA [id number] [address] Hematocrit (Bld) [Volume fraction] 31.0 % Low 39.0-51.0 [facility] Comment on above: Order Comment: Speci men Type: ARTERIAL BLOOD SPECIMENOrdering Facility: [facility] Address: [address] [place] [address] Performed By: #### A LLBG ####[facility]ATORYCLIA [id number] [address] [place] Hemoglobin (Bld) [Mass/Vol] 10.0 g/dL Low 13.0-17.0 [facility] Comment on above: Order Comment: Speci men Type: ARTERIAL BLOOD SPECIMENOrdering Facility: [facility] Address: [address] [place] [address] Performed By: #### A LLBG ####[facility]ATORYCLIA [id number] [address] [place] Methemoglobin (Bld) [Mass fraction] % Normal 0.0-1.5 [facility] Comment on above: Order Comment: Speci men Type: ARTERIAL BLOOD SPECIMENOrdering Facility: [facility] Address: [facility] [address] Performed By: #### A LLBG ####[facility]ORATORYCLIA [id number] [address] [place] O2 THERAPY Ventilator Normal [facility] Comment on above: Order Comment: Speci men Type: ARTERIAL BLOOD SPECIMENOrdering Facility: [facility] Address: [address] [place] [address] Performed By: #### A LLBG ####[facility]ATORYCLIA [id number] [address] [place] Oxygen (Bld) [Partial pressure] 279 mm Hg High 85-95 [facility] Comment on above: Order Comment: Speci men Type: ARTERIAL BLOOD SPECIMENOrdering Facility: [facility] Address: [address] [place] [address] Performed By: #### A LLBG ####[facility]ATORYCLIA [id number] [address] Oxygen adjusted to patient's actual temperature (Bld) [Partial pressure] 281 mmHg High 85-95 [facility] Comment on above: Order Comment: Speci men Type: ARTERIAL BLOOD SPECIMENOrdering Facility: [facility] Address: [address] [place] [address] Performed By: #### A LLBG ####[facility]ATORYCLIA [id number] [address] [place] OXYGEN SATURATION, ARTERIAL 100 % High 95-98 [facility] Comment on above: Order Comment: Speci men Type: ARTERIAL BLOOD SPECIMENOrdering Facility: [facility] Address: [facility] [address] [address] Performed By: #### A LLBG ####[facility]ATORYCLIA [id number] [address] [place] Oxyhemoglobin (BldA) [Mass fraction] 98 % Normal 95-98 [facility] Comment on above: Order Comment: Speci men Type: ARTERIAL BLOOD SPECIMENOrdering Facility: [facility] Address: [address] [place] [address] Performed By: #### A LLBG ####[facility]ATORYCLIA [id number] [address] pH (Bld) 7.47 [pH] High 7.35-7.45 [facility] Comment on above: Order Comment: Speci men Type: ARTERIAL BLOOD SPECIMENOrdering Facility: [facility] Address: [address] [place] [address] Performed By: #### A LLBG ####[facility]ATORYCLIA [id number] [address] pH adjusted to patient's actual temperature (Bld) 7.46 High 7.35-7.45 [facility] Comment on above: Order Comment: Speci men Type: ARTERIAL BLOOD SPECIMENOrdering Facility: [facility] Address: [address] [place] [address] Performed By: #### A LLBG ####[facility]ORATORYCLIA [id number] [address] [place] Potassium [Moles/Vol] 3.6 mmol/L Normal 3.5-5.0 [facility] Comment on above: Order Comment: Speci men Type: ARTERIAL BLOOD SPECIMENOrdering Facility: [facility] Address: [address] [place] [address] Performed By: #### A LLBG ####[facility]ORATORYCLIA [id number] [address] [place] Sodium [Moles/Vol] 162 mmol/L High 136-144 [facility] Comment on above: Order Comment: Speci men Type: ARTERIAL BLOOD SPECIMENOrdering Facility: [facility] Address: [address] [place] [address] Performed By: #### A LLBG ####[facility]ORATORYCLIA [id number] [address] [place] Base excess Calc (Bld) [Moles/Vol] 4 mmol/L High 0-2 [facility] Comment on above: Order Comment: Speci men Type: ARTERIAL BLOOD SPECIMENOrdering Facility: [facility] Address: [address] [place] [address] Performed By: #### A LLBG ####[facility]ORATORYCLIA [id number] [address] [place] Body temperature 100.58 [degF] Normal [facility] Comment on above: Order Comment: Speci men Type: ARTERIAL BLOOD SPECIMENOrdering Facility: [facility] Address: [address] [place] [address] Performed By: #### A LLBG ####[facility] LABORATORYCLIA [id number] [place] [address] [place] CALCIUM IONIZED, PH CORRECTED 1.34 mmol/L High 1.08-1.30 [facility] Comment on above: Order Comment: Speci men Type: ARTERIAL BLOOD SPECIMENOrdering Facility: [facility] Address: [address] [place] [address] Performed By: #### A LLBG ####[facility] LABORATORYCLIA [id number] [address] [place] Calcium.ionized (BldV) [Mass/Vol] 1.33 mmol/L High 1.08-1.30 [facility] Comment on above: Order Comment: Speci men Type: ARTERIAL BLOOD SPECIMENOrdering Facility: [facility] Address: [address] [place] [address] Performed By: #### A LLBG ####[facility] LABORATORYCLIA [id number] [place] [address] [place] Carboxyhemoglobin (BldA) [Mass fraction] 1.5 % Normal 0.0-2.0 [facility] Comment on above: Order Comment: Speci men Type: ARTERIAL BLOOD SPECIMENOrdering Facility: [facility] Address: [address] [place] [address] Result Comment: Carb oxyhemoglobin Reference Range for Smokers: 2.0-8.0% Performed By: #### A LLBG ####[facility]ORATORYCLIA [id number] [address] CO2 (Bld) [Partial pressure] 46 mm Hg Normal 36-46 [facility] Comment on above: Order Comment: Speci men Type: ARTERIAL BLOOD SPECIMENOrdering Facility: [facility] Address: [address] [address] Performed By: #### A LLBG ####[facility] LABORATORYCLIA [id number] [address] CO2 [Moles/Vol] 26.4 mmol/L Normal 22-28 [facility] Comment on above: Order Comment: Speci men Type: ARTERIAL BLOOD SPECIMENOrdering Facility: [facility] Address: [address] [place] [address] Performed By: #### A LLBG ####[facility] LABORATORYCLIA [id number] [address] CO2 adjusted to patient's actual temperature (Bld) [Partial pressure] 48 mmHg High 36-46 [facility] Comment on above: Order Comment: Speci men Type: ARTERIAL BLOOD SPECIMENOrdering Facility: [facility] Address: [address] [place] [address] Performed By: #### A LLBG ####[facility] LABORATORYCLIA [id number] [address] FIO2 100 % Normal [facility] Comment on above: Order Comment: Speci men Type: ARTERIAL BLOOD SPECIMENOrdering Facility: [facility] Address: [address] [address] Performed By: #### A LLBG ####[facility] LABORATORYCLIA [id number] [address] Glucose [Mass/Vol] 132 mg/dL High 60-105 [facility] Comment on above: Order Comment: Speci men Type: ARTERIAL BLOOD SPECIMENOrdering Facility: [facility] Address: [address] [place], [place] [address] Performed By: #### A LLBG ####[facility] LABORATORYCLIA [id number] [address] [place] HCO3 (Bld) [Moles/Vol] 29 mmol/L High 22-26 [facility] Comment on above: Order Comment: Speci men Type: ARTERIAL BLOOD SPECIMENOrdering Facility: [facility] Address: [address] [place] [address] Performed By: #### A LLBG ####[facility] LABORATORYCLIA [id number] [address] [place] Hematocrit (Bld) [Volume fraction] 32.3 % Low 39.0-51.0 [facility] Comment on above: Order Comment: Speci men Type: ARTERIAL BLOOD SPECIMENOrdering Facility: [facility] Address: [address] [place] [address] Performed By: #### A LLBG ####[facility] LABORATORYCLIA [id number] [address] OF [facility] Hemoglobin (Bld) [Mass/Vol] 10.4 g/dL Low 13.0-17.0 [facility] Comment on above: Order Comment: Speci men Type: ARTERIAL BLOOD SPECIMENOrdering Facility: [facility] Address: [address] [place] [address] Performed By: #### A LLBG ####[facility] LABORATORYCLIA [id number] [address] [place] Methemoglobin (Bld) [Mass fraction] % Normal 0.0-1.5 [facility] Comment on above: Order Comment: Speci men Type: ARTERIAL BLOOD SPECIMENOrdering Facility: [facility] Address: [address] [place] [address] Performed By: #### A LLBG ####[facility] LABORATORYCLIA [id number] [address] [place] O2 THERAPY NR=Non-Rebreather Mask Normal [facility] Comment on above: Order Comment: Speci men Type: ARTERIAL BLOOD SPECIMENOrdering Facility: [facility] Address: [address] [place] [address] Performed By: #### A LLBG ####[facility] LABORATORYCLIA [id number] [address] Oxygen (Bld) [Partial pressure] 130 mm Hg High 85-95 [facility] Comment on above: Order Comment: Speci men Type: ARTERIAL BLOOD SPECIMENOrdering Facility: [facility] Address: [address] [place] [address] Performed By: #### A LLBG ####[facility] LABORATORYCLIA [id number] [address] Oxygen adjusted to patient's actual temperature (Bld) [Partial pressure] 136 mmHg High 85-95 [facility] Comment on above: Order Comment: Speci men Type: ARTERIAL BLOOD SPECIMENOrdering Facility: [facility] Address: [address] [place] [address] Performed By: #### A LLBG ####[facility] LABORATORYCLIA [id number] [address] [place] OXYGEN SATURATION, ARTERIAL 99 % High 95-98 [facility] Comment on above: Order Comment: Speci men Type: ARTERIAL BLOOD SPECIMENOrdering Facility: [facility] Address: [address] [place] [address] Performed By: #### A LLBG ####[facility] LABORATORYCLIA [id number] [address] [place] Oxyhemoglobin (BldA) [Mass fraction] 97 % Normal 95-98 [facility] Comment on above: Order Comment: Speci men Type: ARTERIAL BLOOD SPECIMENOrdering Facility: [facility] Address: [address] [place] [address] Performed By: #### A LLBG ####[facility] LABORATORYCLIA [id number] [address] [place] pH (Bld) 7.41 [pH] Normal 7.35-7.45 [facility] Comment on above: Order Comment: Speci men Type: ARTERIAL BLOOD SPECIMENOrdering Facility: [facility] Address: [address] [place] [address] Performed By: #### A LLBG ####[facility] LABORATORYCLIA [id number] [address] pH adjusted to patient's actual temperature (Bld) 7.40 Normal 7.35-7.45 [facility] Comment on above: Order Comment: Speci men Type: ARTERIAL BLOOD SPECIMENOrdering Facility: [facility] Address: [address] [place] [address] Performed By: #### A LLBG ####[facility] LABORATORYCLIA [id number] [address] Potassium [Moles/Vol] 3.8 mmol/L Normal 3.5-5.0 [facility] Comment on above: Order Comment: Speci men Type: ARTERIAL BLOOD SPECIMENOrdering Facility: [facility] Address: [address] [place] [address] Performed By: #### A LLBG ####[facility] LABORATORYCLIA [id number] [address] STATES [facility] Sodium [Moles/Vol] 166 mmol/L High 136-144 [facility] Comment on above: Order Comment: Speci men Type: ARTERIAL BLOOD SPECIMENOrdering Facility: [facility] Address: [address] [place] [address] Performed By: #### A LLBG ####[facility] LABORATORYCLIA [id number] [place] [address] [place] Bacteria Bld Culton 06-15-19 Bacteria identified Cx Nom (Bld) CULTURE, BLOOD: No growth 5 days Normal [facility] Comment on above: Performed By: #### 6 00-7 ####[facility] LABORATORYCLIA [id number] [place] [address] [place] Basic metabolic 2000 panelon 06-15-2021 Anion gap [Moles/Vol] 9 mmol/L Normal 9-18 [facility] Comment on above: Order Comment: Speci men Type: BLOOD SPECIMEN Performed By: #### 2 4321-2, 2776-05, ####[facility] LABORATORYCLIA [id number] [place], [place] [address] [place] [address] [place] [facility] Calcium [Mass/Vol] 9.0 mg/dL Normal 8.5-10.2 [facility] Comment on above: Order Comment: Speci men Type: BLOOD SPECIMEN Performed By: #### 2 4321-2, 2776-05, ####[facility] LABORATORYCLIA [id number] [address] [place] Chloride [Moles/Vol] 125 mmol/L High 97-105 [facility] Comment on above: Order Comment: Speci men Type: BLOOD SPECIMEN Performed By: #### 2 4321-2, 2776-05, ####[facility] LABORATORYCLIA [id number] [address] [place] CO2 [Moles/Vol] 29 mmol/L Normal 22-30 [facility] Comment on above: Order Comment: Speci men Type: BLOOD SPECIMEN Performed By: #### 2 4321-2, 2776-05, ####[facility] LABORATORYCLIA [id number] [address] [place] Creatinine [Mass/Vol] 0.81 mg/dL Normal 0.73-1.22 [facility] Comment on above: Order Comment: Speci men Type: BLOOD SPECIMEN Performed By: #### 2 4321-2, 2776-05, ####[facility] LABORATORYCLIA [id number] [place] [address] [place] GFR/1.73 sq M.predicted MDRD (S/P/Bld) [Vol rate/Area] mL/min/{1.73_m2} Normal [facility] Comment on above: Order Comment: Speci men Type: BLOOD SPECIMEN Result Comment: >60e GFR (Estimated GFR) Units of measure: mL/min/1.73 meters squaredeGFR is derived from the reexpressed MDRD Study equation using the following parameters: serum creatinine, age, gender and race. The creatinine assay has been calibrated to be traceable to IDAZ. An eGFR <60 mL/min/1.73m2 for >3 months is consistent with chronic kidney disease. Refer to KDOQI guidelines for clinical interpretation. In patients with unstable renal function, e.g. those with acute kidney injury, the eGFR may not accurately reflect actual GFR. Performed By: #### 2 4321-2, 2776-05, ####[facility]ITALCL[facility] [id number] [place] [address] [place] Glucose [Mass/Vol] 124 mg/dL High 74-99 [facility] Comment on above: Order Comment: [...] 4321-2, 2776-05, ####[facility] LABORATORYCLIA [id number] [place] [address] [place] Potassium [Moles/Vol] 3.8 mmol/L Normal 3.7-5.1 [facility] Comment on above: Order Comment: Speci men Type: BLOOD SPECIMEN Performed By: #### 2 4321-2, 2776-05, ####[facility] LABORATORYCLIA [id number] [place] [address] [place] Sodium [Moles/Vol] 163 mmol/L High 136-144 [facility] Comment on above: Order Comment: Speci men Type: BLOOD SPECIMEN Performed By: #### 2 4321-2, 2776-, ####[facility] LABORATORYCLIA [id number] [place], [place] [address] [place] [address] [place] Urea nitrogen [Mass/Vol] 35 mg/dL High 9-24 [facility] Comment on above: Order Comment: Speci men Type: BLOOD SPECIMEN Performed By: #### 2 4321-2, 2776-, ####[facility] LABORATORYCLIA [id number] [address] [place] CBC panel Auto (Bld)on 06-15 Erythrocyte distribution width (RBC) [Ratio] 16.3 % High 11.5-15.0 [facility] Comment on above: Order Comment: Speci men Type: BLOOD SPECIMENOrdering Facility: [facility] Address: [address] [place] [address] Performed By: #### 5 8410-2 ####[facility] LABORATORYCLIA [id number] [address] [place] Hematocrit (Bld) [Volume fraction] 30.0 % Low 39.0-51.0 [facility] Comment on above: Order Comment: Speci men Type: BLOOD SPECIMENOrdering Facility: [facility] Address: [address] [place] [address] Performed By: #### 5 8410-2 ####[facility] LABORATORYCLIA [id number] [address] [place] Hemoglobin (Bld) [Mass/Vol] 8.9 g/dL Low 13.0-17.0 [facility] Comment on above: Order Comment: Speci men Type: BLOOD SPECIMENOrdering Facility: [facility] Address: [address] [place] [address] Performed By: #### 5 8410-2 ####[facility] LABORATORYCLIA [id number] [address] MCH (RBC) [Entitic mass] 28.7 pg Normal 26.0-34.0 [facility] Comment on above: Order Comment: Speci men Type: BLOOD SPECIMENOrdering Facility: [facility] Address: [address] [place] [address] Performed By: #### 5 8410-2 ####[facility] LABORATORYCLIA [id number] [address] MCHC (RBC) [Mass/Vol] 29.7 g/dL Low 30.5-36.0 [facility] Comment on above: Order Comment: Speci men Type: BLOOD SPECIMENOrdering Facility: [facility] Address: [address] [place] [address] Performed By: #### 5 8410-2 ####[facility] LABORATORYCLIA [id number] [address] MCV (RBC) [Entitic vol] 96.8 fL Normal 80.0-100.0 [facility] Comment on above: Order Comment: Speci men Type: BLOOD SPECIMENOrdering Facility: [facility] Address: [address] [place] [address] Performed By: #### 5 8410-2 ####[facility] LABORATORYCLIA [id number] [address] Nucleated RBC (Bld) [#/Vol] 10*3/uL Normal <0.01 [facility] Comment on above: Order Comment: Speci men Type: BLOOD SPECIMENOrdering Facility: [facility] Address: [address] [place] [address] Performed By: #### 5 8410-2 ####[facility] LABORATORYCLIA [id number] [address] Platelet mean volume (Bld) [Entitic vol] 12.3 fL Normal 9.0-12.7 [facility] Comment on above: Order Comment: Speci men Type: BLOOD SPECIMENOrdering Facility: [facility] Address: [address] [address] Performed By: #### 5 8410-2 ####[facility] LABORATORYCLIA [id number] [address] Platelets (Bld) [#/Vol] 226 10*3/uL Normal 150-400 [facility] Comment on above: Order Comment: Speci men Type: BLOOD SPECIMENOrdering Facility: [facility] Address: [address] [place] [address] Performed By: #### 5 8410-2 ####[facility] LABORATORYCLIA [id number] [address] RBC (Bld) [#/Vol] 3.10 10*6/uL Low 4.20-6.00 [facility] Comment on above: Order Comment: Speci men Type: BLOOD SPECIMENOrdering Facility: [facility] Address: [address] [place] [address] Performed By: #### 5 8410-2 ####[facility] LABORATORYCLIA [id number] [address] WBC (Bld) [#/Vol] 10.77 10*3/uL Normal 3.70-11.00 [facility] Comment on above: Order Comment: Speci men Type: BLOOD SPECIMENOrdering Facility: [facility] Address: [address] [place] [address] Performed By: #### 5 8410-2 ####[facility] LABORATORYCLIA [id number] [address] Erythrocyte distribution width (RBC) [Ratio] 16.2 % High 11.5-15.0 [facility] Comment on above: Order Comment: Speci men Type: BLOOD SPECIMENOrdering Facility: [facility] Address: [address] [place] [address] Performed By: #### 5 8410-2 ####[facility] LABORATORYCLIA [id number] [address] Hematocrit (Bld) [Volume fraction] 34.8 % Low 39.0-51.0 [facility] Comment on above: Order Comment: Speci men Type: BLOOD SPECIMENOrdering Facility: [facility] Address: [address] [place] [address] Performed By: #### 5 8410-2 ####[facility] LABORATORYCLIA [id number] [address] STATES OF [facility] Hemoglobin (Bld) [Mass/Vol] 10.0 g/dL Low 13.0-17.0 [facility] Comment on above: Order Comment: Speci men Type: BLOOD SPECIMENOrdering Facility: [facility] Address: [address] [place] [address] Performed By: #### 5 8410-2 ####[facility] LABORATORYCLIA [id number] [address] OF [facility] MCH (RBC) [Entitic mass] 27.5 pg Normal 26.0-34.0 [facility] Comment on above: Order Comment: Speci men Type: BLOOD SPECIMENOrdering Facility: [facility] Address: [address] [place] [address] Performed By: #### 5 8410-2 ####[facility] LABORATORYCLIA [id number] [address] STATES OF [facility] MCHC (RBC) [Mass/Vol] 28.7 g/dL Low 30.5-36.0 [facility] Comment on above: Order Comment: Speci men Type: BLOOD SPECIMENOrdering Facility: [facility] Address: [address] [place] [address] Performed By: #### 5 8410-2 ####[facility] LABORATORYCLIA [id number] [address] MCV (RBC) [Entitic vol] 95.6 fL Normal 80.0-100.0 [facility] Comment on above: Order Comment: Speci men Type: BLOOD SPECIMENOrdering Facility: [facility] Address: [address] [place] [address] Performed By: #### 5 8410-2 ####[facility] LABORATORYCLIA [id number] [address] Nucleated RBC (Bld) [#/Vol] 10*3/uL Normal <0.01 [facility] Comment on above: Order Comment: Speci men Type: BLOOD SPECIMENOrdering Facility: [facility] Address: [address] [place] [address] Performed By: #### 5 8410-2 ####[facility] LABORATORYCLIA [id number] [address] [place] Platelet mean volume (Bld) [Entitic vol] 11.9 fL Normal 9.0-12.7 [facility] Comment on above: Order Comment: Speci men Type: BLOOD SPECIMENOrdering Facility: [facility] Address: [address] [place] [address] Performed By: #### 5 8410-2 ####[facility] LABORATORYCLIA [id number] [address] [place] Platelets (Bld) [#/Vol] 246 10*3/uL Normal 150-400 [facility] Comment on above: Order Comment: Speci men Type: BLOOD SPECIMENOrdering Facility: [facility] Address: [address] [place] [address] Performed By: #### 5 8410-2 ####[facility] LABORATORYCLIA [id number] [address] [place] RBC (Bld) [#/Vol] 3.64 10*6/uL Low 4.20-6.00 [facility] Comment on above: Order Comment: Speci men Type: BLOOD SPECIMENOrdering Facility: [facility] Address: [address] [place] [address] Performed By: #### 5 8410-2 ####[facility] LABORATORYCLIA [id number] [address] [place] WBC (Bld) [#/Vol] 11.45 10*3/uL High 3.70-11.00 [facility] Comment on above: Order Comment: Speci men Type: BLOOD SPECIMENOrdering Facility: [facility] Address: [address] [place] [address] Performed By: #### 5 8410-2 ####[facility] LABORATORYCLIA [id number] [address] Erythrocyte distribution width (RBC) [Ratio] 15.9 % High 11.5-15.0 [facility] Comment on above: Order Comment: Speci men Type: BLOOD SPECIMEN Performed By: #### 5 8410-2 ####[facility] LABORATORYCLIA [id number] [address] Hematocrit (Bld) [Volume fraction] 35.8 % Low 39.0-51.0 [facility] Comment on above: Order Comment: Speci men Type: BLOOD SPECIMEN Performed By: #### 5 8410-2 ####[facility] LABORATORYCLIA [id number] [address] Hemoglobin (Bld) [Mass/Vol] 10.4 g/dL Low 13.0-17.0 [facility] Comment on above: Order Comment: Speci men Type: BLOOD SPECIMEN Performed By: #### 5 8410-2 ####[facility] LABORATORYCLIA [id number] [address] MCH (RBC) [Entitic mass] 28.0 pg Normal 26.0-34.0 [facility] Comment on above: Order Comment: Speci men Type: BLOOD SPECIMEN Performed By: #### 5 8410-2 ####[facility] LABORATORYCLIA [id number] [address] OF [facility] MCHC (RBC) [Mass/Vol] 29.1 g/dL Low 30.5-36.0 [facility] Comment on above: Order Comment: Speci men Type: BLOOD SPECIMEN Performed By: #### 5 8410-2 ####[facility] LABORATORYCLIA [id number] [address] MCV (RBC) [Entitic vol] 96.2 fL Normal 80.0-100.0 [facility] Comment on above: Order Comment: Speci men Type: BLOOD SPECIMEN Performed By: #### 5 8410-2 ####[facility] LABORATORYCLIA [id number] [address] Nucleated RBC (Bld) [#/Vol] 10*3/uL Normal <0.01 [facility] Comment on above: Order Comment: Speci men Type: BLOOD SPECIMEN Performed By: #### 5 8410-2 ####[facility] LABORATORYCLIA [id number] [address] Platelet mean volume (Bld) [Entitic vol] 11.6 fL Normal 9.0-12.7 [facility] Comment on above: Order Comment: Speci men Type: BLOOD SPECIMEN Performed By: #### 5 8410-2 ####[facility] LABORATORYCLIA [id number] [address] Platelets (Bld) [#/Vol] 265 10*3/uL Normal 150-400 [facility] Comment on above: Order Comment: Speci men Type: BLOOD SPECIMEN Performed By: #### 5 8410-2 ####[facility] LABORATORYCLIA [id number] [address] RBC (Bld) [#/Vol] 3.72 10*6/uL Low 4.20-6.00 [facility] Comment on above: Order Comment: Speci men Type: BLOOD SPECIMEN Performed By: #### 5 8410-2 ####[facility] LABORATORYCLIA [id number] [address] WBC (Bld) [#/Vol] 12.24 10*3/uL High 3.70-11.00 [facility] Comment on above: Order Comment: Speci men Type: BLOOD SPECIMEN Performed By: #### 5 8410-2 ####[facility] LABORATORYCLIA [id number] [address] [place] CONSULTon 06-15-2021 CONSULT Normal [facility] CONSULT Normal [facility] CONSULT Normal [facility] CT BRAIN WO IVCONon 06-15-19 CT BRAIN WO IVCON Normal [facility] CT CHEST W IVCON PEon 2021 CT CHEST W IVCON PE Invalid Interpretation Code [facility] Chloride Unsp time (U) [Mole s/Vol]on 06-15-2021 Chloride (U) [Moles/Vol] 28 mmol/L Normal 16-250 [facility] Comment on above: Order Comment: Speci men Type: URINE SPECIMENOrdering Facility: [facility] Address: [address] [place] [address] Performed By: #### U TPR, 30507-2, 12318-2, 57789-7 ####[facility] LABORATORYCLIA [id number] [address] Comprehensive metabolic 2000 panelon 06-15-2021 Albumin [Mass/Vol] 2.8 g/dL Low 3.9-4.9 [facility] Comment on above: Order Comment: Speci men Type: BLOOD SPECIMENOrdering Facility: [facility] Address: [address] [place] [address] Performed By: #### 2 4323-8 ####[facility] LABORATORYCLIA [id number] [address] [place] ALP [Catalytic activity/Vol] 74 U/L Normal 38-113 [facility] Comment on above: Order Comment: Speci men Type: BLOOD SPECIMENOrdering Facility: [facility] Address: [address] [place] [address] Performed By: #### 2 4323-8 ####[facility] LABORATORYCLIA [id number] [address] [place] ALT With P-5'-P [Catalytic activity/Vol] 50 U/L Normal 10-54 [facility] Comment on above: Order Comment: Speci men Type: BLOOD SPECIMENOrdering Facility: [facility] Address: [address] [place] [address] Performed By: #### 2 4323-8 ####[facility] LABORATORYCLIA [id number] [place] [address] [place] Anion gap [Moles/Vol] 12 mmol/L Normal 9-18 [facility] Comment on above: Order Comment: Speci men Type: BLOOD SPECIMENOrdering Facility: [facility] Address: [address] [place] [address] Performed By: #### 2 4323-8 ####[facility] LABORATORYCLIA [id number] [address] [place] AST With P-5'-P [Catalytic activity/Vol] 36 U/L Normal 14-40 [facility] Comment on above: Order Comment: Speci men Type: BLOOD SPECIMENOrdering Facility: [facility] Address: [address] [place] [address] Performed By: #### 2 4323-8 ####[facility] LABORATORYCLIA [id number] [place] [address] [place] Bilirubin [Mass/Vol] 0.5 mg/dL Normal 0.2-1.3 [facility] Comment on above: Order Comment: Speci men Type: BLOOD SPECIMENOrdering Facility: [facility] Address: [address] [place] [address] Performed By: #### 2 4323-8 ####[facility] LABORATORYCLIA [id number] [address] [place] Calcium [Mass/Vol] 8.8 mg/dL Normal 8.5-10.2 [facility] Comment on above: Order Comment: Speci men Type: BLOOD SPECIMENOrdering Facility: [facility] Address: [address] [place] [address] Performed By: #### 2 4323-8 ####[facility] LABORATORYCLIA [id number] [address] [place] Chloride [Moles/Vol] 126 mmol/L High 97-105 [facility] Comment on above: Order Comment: Speccara feldman Type: BLOOD SPECIMENOrdering Facility: [facility] Address: [address] [place] [address] Performed By: #### 2 4323-8 ####[facility] LABORATORYCLIA [id number] [address] [place] CO2 [Moles/Vol] 24 mmol/L Normal 22-30 [facility] Comment on above: Order Comment: Johni francia Type: BLOOD SPECIMENOrdering Facility: [facility] Address: [address] [place] [address] Performed By: #### 2 4323-8 ####[facility] LABORATORYCLIA [id number] [address] [place] Creatinine [Mass/Vol] 0.84 mg/dL Normal 0.73-1.22 [facility] Comment on above: Order Comment: Johncara feldman Type: BLOOD SPECIMENOrdering Facility: [facility] Address: [address] [place] [address] Performed By: #### 2 4323-8 ####[facility] LABORATORYCLIA [id number] [address] [place] GFR/1.73 sq M.predicted MDRD (S/P/Bld) [Vol rate/Area] mL/min/{1.73_m2} Normal [facility] Comment on above: Order Comment: Johncara feldman Type: BLOOD SPECIMENOrdering Facility: [facility] Address: [address] [place] [address] Result Comment: >60e GFR (Estimated GFR) Units [...] 2 4323-8 ####[facility] LABORATORYCLIA [id number] [place] [address] [place] Glucose [Mass/Vol] 142 mg/dL High 74-99 [facility] Comment on above: Order Comment: Shira feldman Type: BLOOD SPECIMENOrdering Facility: [facility] Address: [address] [place] [address] Result Comment: The [place] (ADA) [...] 2 4323-8 ####[facility] LABORATORYCLIA [id number] [place] [address] [place] Potassium [Moles/Vol] 3.8 mmol/L Normal 3.7-5.1 [facility] Comment on above: Order Comment: Shira feldman Type: BLOOD SPECIMENOrdering Facility: [facility] Address: [address] [address] Performed By: #### 2 4323-8 ####[facility] LABORATORYCLIA [id number] [place] [address] [place] Protein [Mass/Vol] 6.1 g/dL Low 6.3-8.0 [facility] Comment on above: Order Comment: Shira feldman Type: BLOOD SPECIMENOrdering Facility: [facility] Address: [address] [address] Performed By: #### 2 4323-8 ####[facility] LABORATORYCLIA [id number] [place] [address] [place] Sodium [Moles/Vol] 162 mmol/L High 136-144 [facility] Comment on above: Order Comment: Speci men Type: BLOOD SPECIMENOrdering Facility: [facility] Address: [address] [place] [address] Performed By: #### 2 4323-8 ####[facility] LABORATORYCLIA [id number] [place] [address] [place] Urea nitrogen [Mass/Vol] 33 mg/dL High 9-24 [facility] Comment on above: Order Comment: Speci men Type: BLOOD SPECIMENOrdering Facility: [facility] Address: [address] [place] [address] Performed By: #### 2 4323-8 ####[facility] LABORATORYCLIA [id number] [address] [place] Creatinine Unsp time (U) [Ma ss/Vol]on 06-15-2021 Creatinine (U) [Mass/Vol] 87.0 mg/dL Normal 46.8-314.5 [facility] Comment on above: Order Comment: Speci men Type: URINE SPECIMENOrdering Facility: [facility] Address: [address] [place] [address] Performed By: #### U TPR, 41307-3, 71947-6, 99417-9 ####[facility] LABORATORYCLIA [id number] [address] [place] HIGH SENSITIVITY TROPONIN To n 06-15-2021 HIGH SENSITIVITY TAMIKO 23 ng/L High <12 [facility] Comment on above: Order Comment: Speci men Type: BLOOD SPECIMENOrdering Facility: [facility] Address: [address] [place] [address] Result Comment: When assessing risk for acute [...] day MACE. Performed By: #### P JULIANNE, 72911-0, HSTNT ####[facility] LABORATORYCLIA [id number] [address] STATES OF [facility] Lactate (Bld) [Moles/Vol]on 06-15-2021 Lactate [Moles/Vol] 0.8 mmol/L Normal 0.5-2.2 [facility] Comment on above: Order Comment: Speci men Type: BLOOD SPECIMENOrdering Facility: [facility] Address: [address] [place] [address] Performed By: #### 3 2693-4 ####[facility]ITALCLIA [id number] [address] [place] Magnesium [facility]-ncon 06-15 Magnesium [Mass/Vol] 3.0 mg/dL High 1.7-2.3 [facility] Comment on above: Order Comment: Speci men Type: BLOOD SPECIMEN Performed By: #### 2 4321-2, 2777-1, 05762-2 ####[facility]ORATORYCLIA [id number] [address] NT-proBNP [facility] Natriuretic peptide.B prohormone N-Terminal [Mass/Vol] 265 pg/mL High <125 [facility] Comment on above: Order Comment: Speci men Type: BLOOD SPECIMENOrdering Facility: [facility] Address: [address] [address] Performed By: #### P JULIANNE, 23738-6, HSTNT ####[facility] LABORATORYCLIA [id number] [address] [place] Osmolality Uron 06-15-2021 Osmolality (U) [Osmolality] 606 mosm/kg Normal 50-1,200 [facility] Comment on above: Order Comment: Speci men Type: URINE SPECIMENOrdering Facility: [facility] Address: [address] [place] [address] Performed By: #### 2 695-5 ####[facility] LABORATORYCLIA [id number] [address] PROCALCITONIN (LAB)on 2021 Procalcitonin [Mass/Vol] 0.21 ng/mL High <0.09 [facility] Comment on above: Order Comment: Speci men Type: BLOOD SPECIMENOrdering Facility: [facility] Address: [address] [place] [address] Result Comment: For a guided interpretation of test results, please visit the Change in Procalcitonin Calculator, [email or web address]. Performed By: #### P JULIANNE, 2951-2 ####[facility] LABORATORYCLIA [id number] [address] Procalcitonin [Mass/Vol] 0.17 ng/mL High <0.09 [facility] Comment on above: Order Comment: Speci men Type: BLOOD SPECIMENOrdering Facility: [facility] Address: [address] [place] [address] Result Comment: For a guided interpretation of test results, please visit the Change in Procalcitonin Calculator, [email or web address]. Performed By: #### P JULIANNE, 08785-4, HSTNT ####[facility] LABORATORYCLIA [id number] [address] PROTEIN RANDOM URon 06-15-19 22 Protein (U) [Mass/Vol] 175 mg/dL High 0-20 [facility] Comment on above: Order Comment: Speci men Type: URINE SPECIMENOrdering Facility: [facility] Address: [address] [place] [address] Performed By: #### U TPR, 41523-4, 65124-7, 80155-0 ####[facility] LABORATORYCLIA [id number] [address] PT panel Coag (PPP)on 2021 INR Coag (PPP) [Relative time] 1.1 {INR} Normal <1.4 [facility] Comment on above: Order Comment: Shira feldman Type: BLOOD SPECIMENOrdering Facility: [facility] Address: [address] [place] [address] Result Comment: Yris min K Antagonist (VKA) [...] 141:7S-47SNishimura RA, et al. [facility] 2017, 70: 252-289 Performed By: #### 3 4528-0, 74698-7 ####[facility] LABORATORYCLIA [id number] [place] [address] [place] PT Coag (PPP) [Time] 11.4 s Normal <13.1 [facility] Comment on above: Order Comment: Shira feldman Type: BLOOD SPECIMENOrdering Facility: [facility] Address: [address] [place], [place] [address] Performed By: #### 3 4528-0, 73099-8 ####[facility] LABORATORYCLIA [id number] [place] [address] [place] Phosphate SerPl-mCncon 06-15 Phosphate [Mass/Vol] 2.6 mg/dL Low 2.7-4.8 [facility] Comment on above: Order Comment: Shira feldman Type: BLOOD SPECIMEN Performed By: #### 2 4321-2, 2777-1, 92452-0 ####[facility]ORATORYCLIA [id number] [place] [address] [place] Sodium ?Tm Ur-sCncon 022 Sodium Unsp time (U) [Moles/Vol] 34 mmol/L Normal 14-216 [facility] Comment on above: Order Comment: Speci men Type: URINE SPECIMENOrdering Facility: [facility] Address: [address] [place] [address] Performed By: #### U TPR, 75307-9, 85861-1, 01101-7 ####[facility] LABORATORYCLIA [id number] [address] [place] Sodium SerPl-sCncon 06-15-19 22 Sodium [Moles/Vol] 159 mmol/L High 136-144 [facility] Comment on above: Order Comment: Speci men Type: BLOOD SPECIMENOrdering Facility: [facility] Address: [address] [place] [address] Performed By: #### P JULIANNE, 2951-2 ####[facility] LABORATORYCLIA [id number] [address] [place] THERAPY NTon 06-15-2021 THERAPY NT Normal [facility] Urinalysis complete panel (U )on 06-15-2021 Bacteria LM.HPF (Urine sed) [#/Area] None Seen Normal None Seen [facility] Comment on above: Order Comment: Speci men Type: URINE SPECIMENOrdering Facility: [facility] Address: [address] [place] [address] Performed By: #### 2 4356-8 ####[facility] LABORATORYCLIA [id number] [address] [place] Bilirubin Ql (U) Negative Normal Negative [facility] Comment on above: Order Comment: Speci men Type: URINE SPECIMENOrdering Facility: [facility] Address: [address] [place] [address] Performed By: #### 2 4356-8 ####[facility] LABORATORYCLIA [id number] [address] Clarity (Unsp spec) Cloudy Abnormal Clear [facility] Comment on above: Order Comment: Speci men Type: URINE SPECIMENOrdering Facility: [facility] Address: [address] [place] [address] Performed By: #### 2 4356-8 ####[facility]ORATORYCLIA [id number] [address] Color (U) Yellow Normal Yellow [facility] Comment on above: Order Comment: Speci men Type: URINE SPECIMENOrdering Facility: [facility] Address: [address] [place] [address] Performed By: #### 2 4356-8 ####[facility]ORATORYCLIA [id number] [address] Epithelial cells LM.HPF (Urine sed) [#/Area] 7.1 /[HPF] Normal [facility] Comment on above: Order Comment: Speci men Type: URINE SPECIMENOrdering Facility: [facility] Address: [address] [place] [address] Performed By: #### 2 4356-8 ####[facility]ORATORYCLIA [id number] [address] Glucose Test strip (U) [Mass/Vol] Negative Normal Negative [facility] Comment on above: Order Comment: Speci men Type: URINE SPECIMENOrdering Facility: [facility] Address: [address] [place] [address] Performed By: #### 2 4356-8 ####[facility] LABORATORYCLIA [id number] [address] Granular casts (Urine sed) [#/Area] /[LPF] Abnormal 0 /LPF [facility] Comment on above: Order Comment: Speci men Type: URINE SPECIMENOrdering Facility: [facility] Address: [address] [place] [address] Performed By: #### 2 4356-8 ####[facility]ORATORYCLIA [id number] [address] [place] Hemoglobin Ql (U) Moderate Abnormal Negative [facility] Comment on above: Order Comment: Speci men Type: URINE SPECIMENOrdering Facility: [facility] Address: [address] [place] [address] Performed By: #### 2 4356-8 ####[facility] LABORATORYCLIA [id number] [place] [address] [place] Hyaline casts (Urine sed) [#/Area] /[LPF] Abnormal 0 /LPF [facility] Comment on above: Order Comment: Speci men Type: URINE SPECIMENOrdering Facility: [facility] Address: [address] [place] [address] Performed By: #### 2 4356-8 ####[facility] LABORATORYCLIA [id number] [address] STATES [facility] Ketones Ql (U) Negative Normal Negative [facility] Comment on above: Order Comment: Speci men Type: URINE SPECIMENOrdering Facility: [facility] Address: [address] [place] [address] Performed By: #### 2 4356-8 ####[facility] LABORATORYCLIA [id number] [address] [place] Leukocyte esterase Test strip Ql (U) Negative Normal Negative [facility] Comment on above: Order Comment: Speci men Type: URINE SPECIMENOrdering Facility: [facility] Address: [address] [place] [address] Performed By: #### 2 4356-8 ####[facility]ORATORYCLIA [id number] [place] [address] [place] Nitrite Ql (U) Negative Normal Negative [facility] Comment on above: Order Comment: Speci men Type: URINE SPECIMENOrdering Facility: [facility] Address: [facility] [address] Performed By: #### 2 4356-8 ####[facility]ORATORYCLIA [id number] [address] pH (U) 6.0 [pH] Normal 5.0-8.0 [facility] Comment on above: Order Comment: Speci men Type: URINE SPECIMENOrdering Facility: [facility] Address: [address] [place] [address] Performed By: #### 2 4356-8 ####[facility]ORATORYCLIA [id number] [address] Protein (U) [Mass/Vol] 100 mg/dL Abnormal Negative [facility] Comment on above: Order Comment: Speci men Type: URINE SPECIMENOrdering Facility: [facility] Address: [address] [place] [address] Performed By: #### 2 4356-8 ####[facility]PITALCLIA [id number] [address] STATES [facility] RBC LM.HPF (Urine sed) [#/Area] 0-3 /HPF Normal 0-3 /HPF [facility] Comment on above: Order Comment: Speci men Type: URINE SPECIMENOrdering Facility: [facility] Address: [address] [place] [address] Performed By: #### 2 4356-8 ####[facility]ORATORYCLIA [id number] [address] Specific gravity (U) [Rel density] 1.024 Normal 1.005-1.030 [facility] Comment on above: Order Comment: Speci men Type: URINE SPECIMENOrdering Facility: [facility] Address: [address] [place] [address] Performed By: #### 2 4356-8 ####[facility] LABORATORYCLIA [id number] [address] Urobilinogen Ql (U) 0.2 EU/dL Normal 0.2-1.0 EU/dL [facility] Comment on above: Order Comment: Speci men Type: URINE SPECIMENOrdering Facility: [facility] Address: [address] [place] [address], [place] [address] Performed By: #### 2 4356-8 ####[facility]ORATORYCLIA [id number] [address] STATES [facility] WBC LM.HPF (Urine sed) [#/Area] 0-5 /HPF Normal 0-5 /HPF [facility] Comment on above: Order Comment: Speci men Type: URINE SPECIMENOrdering Facility: [facility] Address: [address] [place], [place] [address] [address] Performed By: #### 2 4356-8 ####[facility] LABORATORYCLIA [id number] [address] OF [facility] XR CHEST 1V FRONTALon 2021 XR CHEST 1V FRONTAL Normal [facility] XR CHEST 1V FRONTAL PORTon 0 06-15-2021 XR CHEST 1V FRONTAL PORT Normal [facility] XR CHEST 1V FRONTAL PORT Normal [facility] aPTT PPPon 06-15-2021 aPTT Coag (PPP) [Time] 30.9 s Normal 23.0-32.4 [facility] Comment on above: Order Comment: Speci men Type: BLOOD SPECIMENOrdering Facility: [facility] Address: [facility] [address] [address] Performed By: #### 3 4528-0, 04554-7 ####[facility] LABORATORYCLIA [id number] [address] STATES OF [facility] Basic metabolic 2000 panelon 06-14-2021 Anion gap [Moles/Vol] 8 mmol/L Low 9-18 [facility] Comment on above: Order Comment: Speci men Type: BLOOD SPECIMEN Performed By: #### 2 4321-2, 2777-1, 88027-5 ####[facility] LABORATORYCLIA [id number] [address] STATES OF [facility] Calcium [Mass/Vol] 8.9 mg/dL Normal 8.5-10.2 [facility] Comment on above: Order Comment: Speci men Type: BLOOD SPECIMEN Performed By: #### 2 4321-2, 2776-05, ####[facility] LABORATORYCLIA [id number] [place], [place] [address] [place] [address] [place] OF [facility] Chloride [Moles/Vol] 121 mmol/L High 97-105 [facility] Comment on above: Order Comment: Speci men Type: BLOOD SPECIMEN Performed By: #### 2 4321-2, 2776-05, ####[facility]ORATORYCLIA [id number] [address] [place] CO2 [Moles/Vol] 30 mmol/L Normal 22-30 [facility] Comment on above: Order Comment: Speci men Type: BLOOD SPECIMEN Performed By: #### 2 4321-2, 2776-05, ####[facility]ORATORYCLIA [id number] [address] STATES OF [facility] Creatinine [Mass/Vol] 0.78 mg/dL Normal 0.73-1.22 [facility] Comment on above: Order Comment: Speci men Type: BLOOD SPECIMEN Performed By: #### 2 4321-2, 2776-05, ####[facility]ORATORYCLIA [id number] [address] [place] GFR/1.73 sq M.predicted MDRD (S/P/Bld) [Vol rate/Area] mL/min/{1.73_m2} Normal [facility] Comment on above: Order Comment: [...] 4321-2, 2776-05, ####[facility] LABORATORYCLIA [id number] [place] [address] [place] Glucose [Mass/Vol] 132 mg/dL High 74-99 [facility] Comment on above: Order Comment: [...] 4321-2, 2776-05, ####[facility]ORATORYCLIA [id number] [place] [address] [place] Potassium [Moles/Vol] 3.7 mmol/L Normal 3.7-5.1 [facility] Comment on above: Order Comment: Speci men Type: BLOOD SPECIMEN Performed By: #### 2 1-2, 2776-05, ####[facility] LABORATORYCLIA [id number] [place] [address] [place] Sodium [Moles/Vol] 159 mmol/L High 136-144 [facility] Comment on above: Order Comment: Speci men Type: BLOOD SPECIMEN Performed By: #### 2 4321-2, 2776-05, ####[facility]ORATORYCLIA [id number] [place] [address] [place] Urea nitrogen [Mass/Vol] 35 mg/dL High 9-24 [facility] Comment on above: Order Comment: Speci men Type: BLOOD SPECIMEN Performed By: #### 2 1-2, 2776-05, 42967-6 ####[facility]ORATORYCLIA [id number] [address] CASE MANAGEMon 06-14-2021 CASE MANAGEM Normal [facility] CBC panel Auto (Bld)on 06-14 Erythrocyte distribution width (RBC) [Ratio] 16.2 % High 11.5-15.0 [facility] Comment on above: Order Comment: Speci men Type: BLOOD SPECIMEN Performed By: #### 5 8410-2 ####[facility]ORATORYCLIA [id number] [address] Hematocrit (Bld) [Volume fraction] 35.2 % Low 39.0-51.0 [facility] Comment on above: Order Comment: Speci men Type: BLOOD SPECIMEN Performed By: #### 5 8410-2 ####[facility] LABORATORYCLIA [id number] [address] Hemoglobin (Bld) [Mass/Vol] 10.1 g/dL Low 13.0-17.0 [facility] Comment on above: Order Comment: Speci men Type: BLOOD SPECIMEN Performed By: #### 5 8410-2 ####[facility] LABORATORYCLIA [id number] [address] MCH (RBC) [Entitic mass] 27.2 pg Normal 26.0-34.0 [facility] Comment on above: Order Comment: Speci men Type: BLOOD SPECIMEN Performed By: #### 5 8410-2 ####[facility] LABORATORYCLIA [id number] [address] MCHC (RBC) [Mass/Vol] 28.7 g/dL Low 30.5-36.0 [facility] Comment on above: Order Comment: Speci men Type: BLOOD SPECIMEN Performed By: #### 5 8410-2 ####[facility] LABORATORYCLIA [id number] [address] MCV (RBC) [Entitic vol] 94.6 fL Normal 80.0-100.0 [facility] Comment on above: Order Comment: Speci men Type: BLOOD SPECIMEN Performed By: #### 5 8410-2 ####[facility] LABORATORYCLIA [id number] [address] Nucleated RBC (Bld) [#/Vol] 10*3/uL Normal <0.01 [facility] Comment on above: Order Comment: Speci men Type: BLOOD SPECIMEN Performed By: #### 5 8410-2 ####[facility]ORATORYCLIA [id number] [address] Platelet mean volume (Bld) [Entitic vol] 11.0 fL Normal 9.0-12.7 [facility] Comment on above: Order Comment: Speci men Type: BLOOD SPECIMEN Performed By: #### 5 8410-2 ####[facility]ORATORYCLIA [id number] [address] Platelets (Bld) [#/Vol] 287 10*3/uL Normal 150-400 [facility] Comment on above: Order Comment: Speci men Type: BLOOD SPECIMEN Performed By: #### 5 8410-2 ####[facility]ORATORYCLIA [id number] [address] RBC (Bld) [#/Vol] 3.72 10*6/uL Low 4.20-6.00 [facility] Comment on above: Order Comment: Speci men Type: BLOOD SPECIMEN Performed By: #### 5 8410-2 ####[facility]ORATORYCLIA [id number] [address] WBC (Bld) [#/Vol] 12.23 10*3/uL High 3.70-11.00 [facility] Comment on above: Order Comment: Speci men Type: BLOOD SPECIMEN Performed By: #### 5 8410-2 ####[facility]ORATORYCLIA [id number] [address] Comprehensive metabolic 2000 panelon 06-14-2021 Albumin [Mass/Vol] 3.1 g/dL Low 3.9-4.9 [facility] Comment on above: Order Comment: Speci men Type: BLOOD SPECIMEN Performed By: #### 2 4323-8, HSTNT, 2776-05, ####[facility] LABORATORYCLIA [id number] [place], [place] [address] [place] [address] ALP [Catalytic activity/Vol] 72 U/L Normal 38-113 [facility] Comment on above: Order Comment: Speci men Type: BLOOD SPECIMEN Performed By: #### 2 4323-8, HSTNT, 2776-05, ####[facility]ORATORYCLIA [id number] [address] ALT With P-5'-P [Catalytic activity/Vol] 57 U/L High 10-54 [facility] Comment on above: Order Comment: Speci men Type: BLOOD SPECIMEN Performed By: #### 2 4323-8, HSTNT, 2776-05, ####[facility]ORATORYCLIA [id number] [address] Anion gap [Moles/Vol] 9 mmol/L Normal 9-18 [facility] Comment on above: Order Comment: Speci men Type: BLOOD SPECIMEN Performed By: #### 2 4323-8, HSTNT, 2776-05, ####[facility]ORATORYCLIA [id number] [address] AST With P-5'-P [Catalytic activity/Vol] 33 U/L Normal 14-40 [facility] Comment on above: Order Comment: Speci men Type: BLOOD SPECIMEN Performed By: #### 2 4323-8, HSTNT, 2776-05, ####[facility] LABORATORYCLIA [id number] [address] OF [facility] Bilirubin [Mass/Vol] 0.5 mg/dL Normal 0.2-1.3 [facility] Comment on above: Order Comment: Speci men Type: BLOOD SPECIMEN Performed By: #### 2 4323-8, HSTNT, 2776-05, ####[facility]ORYCLIA [id number] [address] [place] OF [facility] Calcium [Mass/Vol] 8.8 mg/dL Normal 8.5-10.2 [facility] Comment on above: Order Comment: Speci men Type: BLOOD SPECIMEN Performed By: #### 2 4323-8, HSTNT, 2776-05, ####[facility]ORYCLIA [id number] [address] [place] OF [facility] Chloride [Moles/Vol] 124 mmol/L High 97-105 [facility] Comment on above: Order Comment: Speci men Type: BLOOD SPECIMEN Performed By: #### 2 4323-8, HSTNT, 2776-05, ####[facility]ORYCLIA [id number] [address] [place] [facility] CO2 [Moles/Vol] 29 mmol/L Normal 22-30 [facility] Comment on above: Order Comment: Speci men Type: BLOOD SPECIMEN Performed By: #### 2 4323-8, HSTNT, 2776-05, ####[facility]ORY[facility] [id number] [address] [place] Creatinine [Mass/Vol] 0.73 mg/dL Normal 0.73-1.22 [facility] Comment on above: Order Comment: Speci men Type: BLOOD SPECIMEN Performed By: #### 2 4323-8, HSTNT, 2776-05, ####[facility]ORYCL[facility] [id number] [address] [place] GFR/1.73 sq M.predicted MDRD (S/P/Bld) [Vol rate/Area] mL/min/{1.73_m2} Normal [facility] Comment on above: Order Comment: [...] HSTNT, 2776-05, ####[facility]ORATORYCLIA [id number] [place] [address] [place] Glucose [Mass/Vol] 137 mg/dL High 74-99 [facility] Comment on above: Order Comment: [...] HSTNT, 2776-05, ####[facility]ATORYCLIA [id number] [place] [address] [place] Potassium [Moles/Vol] 3.6 mmol/L Low 3.7-5.1 [facility] Comment on above: Order Comment: Speci men Type: BLOOD SPECIMEN Performed By: #### 2 4323-8, HSTNT, 2776-05, ####[facility]ORYCLIA [id number] [address] Protein [Mass/Vol] 5.9 g/dL Low 6.3-8.0 [facility] Comment on above: Order Comment: Speci men Type: BLOOD SPECIMEN Performed By: #### 2 4323-8, HSTNT, 2777-1, 07191-9 ####[facility]ORYCLIA [id number] [address] Sodium [Moles/Vol] 162 mmol/L High 136-144 [facility] Comment on above: Order Comment: Speci men Type: BLOOD SPECIMEN Performed By: #### 2 4323-8, HSTNT, 2776-, ####[facility]ORYCLIA [id number] [address] Urea nitrogen [Mass/Vol] 33 mg/dL High 9-24 [facility] Comment on above: Order Comment: Speci men Type: BLOOD SPECIMEN Performed By: #### 2 4323-8, HSTNT, 2776-05, ####[facility]ATORYCLIA [id number] [address] HIGH SENSITIVITY TROPONIN To n 06-14-2021 HIGH SENSITIVITY TAMIKO 22 ng/L High <12 [facility] Comment on above: Order [...] H STNT ####[facility]ORYCLIA [id number] [address] HIGH SENSITIVITY TAMIKO 22 ng/L High <12 [facility] Comment on above: Order [...] Performed By: #### 2 4323-8, HSTNT, 2776-05, ####[facility]ORYCLIA [id number] [address] Magnesium SerPl-mCncon 06-14 Magnesium [Mass/Vol] 2.9 mg/dL High 1.7-2.3 [facility] Comment on above: Order Comment: Speci men Type: BLOOD SPECIMEN Performed By: #### 2 4323-8, HSTNT, 2776-05, ####[facility]ORYCLIA [id number] [address] Magnesium [Mass/Vol] 3.0 mg/dL High 1.7-2.3 [facility] Comment on above: Order Comment: Speci men Type: BLOOD SPECIMEN Performed By: #### 2 4321-2, 2776-05, ####[facility]ATORYCLIA [id number] [address] NURSING PROGon 06-14-2021 NURSING PROG Normal [facility] NUTRITIONon 06-14-2021 NUTRITION Normal [facility] Phosphate SerPl-mCncon 06-14 Phosphate [Mass/Vol] 2.4 mg/dL Low 2.7-4.8 [facility] Comment on above: Order Comment: Speci men Type: BLOOD SPECIMEN Performed By: #### 2 4323-8, HSTNT, 2776-05, ####[facility]ATORYCLIA [id number] [address] Phosphate [Mass/Vol] 3.2 mg/dL Normal 2.7-4.8 [facility] Comment on above: Order Comment: Speci men Type: BLOOD SPECIMEN Performed By: #### 2 4321-2, 2776-05, ####[facility]ATORYCLIA [id number] [place], [place] [address] [place] [address] [place] THERAPY NTon 06-14-2021 THERAPY NT Normal [facility] THERAPY NT Normal [facility] THERAPY NT Normal [facility] US DVT LOWER BILon US DVT LOWER RAINER Normal [facility] ALLIED HEALTHon 06-13-2021 ALLIED HEALTH Normal [facility] Basic metabolic 2000 panelon 06-13-2021 Anion gap [Moles/Vol] 7 mmol/L Low 9-18 [facility] Comment on above: Order Comment: Speci men Type: BLOOD SPECIMEN Performed By: #### 2 4321-2, , 2776-05 ####[facility]ATORYCLIA [id number] [address] STATES OF [facility] Calcium [Mass/Vol] 8.8 mg/dL Normal 8.5-10.2 [facility] Comment on above: Order Comment: Speci men Type: BLOOD SPECIMEN Performed By: #### 2 4321-2, , 2776-05 ####[facility]ATORYCLIA [id number] [address] [place] Chloride [Moles/Vol] 120 mmol/L High 97-105 [facility] Comment on above: Order Comment: Speci men Type: BLOOD SPECIMEN Performed By: #### 2 4321-2, , 2776-05 ####[facility]ATORYCLIA [id number] [place] [id number] [place] CO2 [Moles/Vol] 28 mmol/L Normal 22-30 [facility] Comment on above: Order Comment: Speci men Type: BLOOD SPECIMEN Performed By: #### 2 4321-2, , 2776-05 ####[facility]ORYCLIA [id number] [place] [address] [place] Creatinine [Mass/Vol] 0.78 mg/dL Normal 0.73-1.22 [facility] Comment on above: Order Comment: Speci [facility] Type: BLOOD SPECIMEN Performed By: #### 2 4321-2, 49006-6, 2777-1 ####[facility]ATORYCLIA [id number] [place] [address] [place] GFR/1.73 sq M.predicted MDRD (S/P/Bld) [Vol rate/Area] mL/min/{1.73_m2} Normal [facility] Comment on above: Order Comment: [...] actual GFR. Performed By: #### 2 4321-2, 35644-3, 277-1 ####[facility]ATORYCLIA [id number] [place] [address] [place] Glucose [Mass/Vol] 126 mg/dL High 74-99 [facility] Comment on above: Order Comment: [facility] Type: BLOOD SPECIMEN Result Comment: [facility] [place] [...] 2 4321-2, , 2776-05 ####[facility]ATORYCLIA [id number] [place], [place] [address] [place] [address] [place] [facility] Potassium [Moles/Vol] 3.6 mmol/L Low 3.7-5.1 [facility] Comment on above: Order Comment: Speci men Type: BLOOD SPECIMEN Performed By: #### 2 4321-2, , 2776-05 ####[facility]ATORYCLIA [id number] [place], [place] [address] [place] [address] [place] Sodium [Moles/Vol] 155 mmol/L High 136-144 [facility] Comment on above: Order Comment: Speci men Type: BLOOD SPECIMEN Performed By: #### 2 1-2, , 2776-05 ####[facility]ORYCLIA [id number] [place] [address] [place] Urea nitrogen [Mass/Vol] 36 mg/dL High 9-24 [facility] Comment on above: Order Comment: Speci men Type: BLOOD SPECIMEN Performed By: #### 2 1-2, , 2776-05 ####[facility]ORYCLIA [id number] [address] STATES OF [facility] Anion gap [Moles/Vol] 6 mmol/L Low 9-18 [facility] Comment on above: Order Comment: Speci men Type: BLOOD SPECIMEN Performed By: #### 2 4321-2, 2776-05, ####[facility]ORYCLIA [id number] [place] [address] [place] Calcium [Mass/Vol] 6.5 mg/dL Low 8.5-10.2 [facility] Comment on above: Order Comment: Speci men Type: BLOOD SPECIMEN Performed By: #### 2 4321-2, 2776-05, ####[facility]ORYCLIA [id number] [place] [address] [place] Chloride [Moles/Vol] 124 mmol/L High 97-105 [facility] Comment on above: Order Comment: Speci men Type: BLOOD SPECIMEN Performed By: #### 2 4321-2, 2776-05, ####[facility]ATORYCLIA [id number] [place] [address] [place] CO2 [Moles/Vol] 24 mmol/L Normal 22-30 [facility] Comment on above: Order Comment: Speci men Type: BLOOD SPECIMEN Performed By: #### 2 4321-2, 2776-05, ####[facility]ATORYCLIA [id number] [place] [address] [place] Creatinine [Mass/Vol] 0.61 mg/dL Low 0.73-1.22 [facility] Comment on above: Order Comment: Speci men Type: BLOOD SPECIMEN Performed By: #### 2 4321-2, 2776-05, ####[facility]ORYCLIA [id number] [address] [place] GFR/1.73 sq M.predicted MDRD (S/P/Bld) [Vol rate/Area] mL/min/{1.73_m2} Normal [facility] Comment on above: Order Comment: [...] 4321-2, 2776-05, ####[facility]ATORYCLIA [id number] [place] [address] [place] Glucose [Mass/Vol] 100 mg/dL High 74-99 [facility] Comment on above: Order Comment: [...] 4321-2, 2776-05, ####[facility]ATORYCLIA [id number] [address] STATES OF [facility] Potassium [Moles/Vol] 2.7 mmol/L Low 3.7-5.1 [facility] Comment on above: Order Comment: Speci men Type: BLOOD SPECIMEN Performed By: #### 2 4321-2, 2776-05, ####[facility]ATORYCLIA [id number] [address] STATES [facility] Sodium [Moles/Vol] 154 mmol/L High 136-144 [facility] Comment on above: Order Comment: Speci men Type: BLOOD SPECIMEN Performed By: #### 2 4321-2, 2776-05, ####[facility]ATORYCLIA [id number] [place], [place] [address] [place] [address] [place] Urea nitrogen [Mass/Vol] 29 mg/dL High 9-24 [facility] Comment on above: Order Comment: Speci men Type: BLOOD SPECIMEN Performed By: #### 2 4321-2, 2776-05, ####[facility]ATORYCLIA [id number] [address] OF [facility] CASE MANAGEMon 06-13-2021 CASE MANAGEM Normal [facility] CBC panel Auto (Bld)on 06-13 Erythrocyte distribution width (RBC) [Ratio] 15.9 % High 11.5-15.0 [facility] Comment on above: Order Comment: Speci men Type: BLOOD SPECIMEN Performed By: #### 5 8410-2 ####[facility]ORYCLIA [id number] [address] Hematocrit (Bld) [Volume fraction] 34.3 % Low 39.0-51.0 [facility] Comment on above: Order Comment: Speci men Type: BLOOD SPECIMEN Performed By: #### 5 8410-2 ####[facility]ORYCLIA [id number] [address] Hemoglobin (Bld) [Mass/Vol] 9.9 g/dL Low 13.0-17.0 [facility] Comment on above: Order Comment: Speci men Type: BLOOD SPECIMEN Performed By: #### 5 8410-2 ####[facility]ORYCLIA [id number] [address] MCH (RBC) [Entitic mass] 27.3 pg Normal 26.0-34.0 [facility] Comment on above: Order Comment: Speci men Type: BLOOD SPECIMEN Performed By: #### 5 8410-2 ####[facility]ORYCLIA [id number] [address] MCHC (RBC) [Mass/Vol] 28.9 g/dL Low 30.5-36.0 [facility] Comment on above: Order Comment: Speci men Type: BLOOD SPECIMEN Performed By: #### 5 8410-2 ####[facility]ORYCLIA [id number] [address] MCV (RBC) [Entitic vol] 94.5 fL Normal 80.0-100.0 [facility] Comment on above: Order Comment: Speci men Type: BLOOD SPECIMEN Performed By: #### 5 8410-2 ####[facility]ATORYCLIA [id number] [address] Nucleated RBC (Bld) [#/Vol] 10*3/uL Normal <0.01 [facility] Comment on above: Order Comment: Speci men Type: BLOOD SPECIMEN Performed By: #### 5 8410-2 ####[facility]ORYCLIA [id number] [address] Platelet mean volume (Bld) [Entitic vol] 11.3 fL Normal 9.0-12.7 [facility] Comment on above: Order Comment: Speci men Type: BLOOD SPECIMEN Performed By: #### 5 8410-2 ####[facility]ORYCLIA [id number] [address] Platelets (Bld) [#/Vol] 269 10*3/uL Normal 150-400 [facility] Comment on above: Order Comment: Speci men Type: BLOOD SPECIMEN Performed By: #### 5 8410-2 ####[facility]ORYCLIA [id number] [address] RBC (Bld) [#/Vol] 3.63 10*6/uL Low 4.20-6.00 [facility] Comment on above: Order Comment: Speci men Type: BLOOD SPECIMEN Performed By: #### 5 8410-2 ####[facility]ORYCLIA [id number] [address] WBC (Bld) [#/Vol] 12.77 10*3/uL High 3.70-11.00 [facility] Comment on above: Order Comment: Speci men Type: BLOOD SPECIMEN Performed By: #### 5 8410-2 ####[facility]ATORYCLIA [id number] [address] Gas and Carbon monoxide pane l (BldV)on 06-13-2021 Base excess Calc (BldV) [Moles/Vol] 5.7 mmol/L High 0-2 [facility] Comment on above: Order Comment: Speci men Type: VENOUS BLOOD SPECIMEN Performed By: #### 2 4344-4 ####[facility]ORYCLIA [id number] [address] Body temperature 99.5 [degF] Normal [facility] Comment on above: Order Comment: Speci men Type: VENOUS BLOOD SPECIMEN Performed By: #### 2 4344-4 ####[facility]ATORYCLIA [id number] [address] CALCIUM IONIZED, PH CORRECTED 1.24 mmol/L Normal 1.08-1.30 [facility] Comment on above: Order Comment: Speci men Type: VENOUS BLOOD SPECIMEN Performed By: #### 2 4344-4 ####[facility]ORYCLIA [id number] [address] Calcium.ionized (BldV) [Mass/Vol] 1.23 mmol/L Normal 1.08-1.30 [facility] Comment on above: Order Comment: Speci men Type: VENOUS BLOOD SPECIMEN Performed By: #### 2 4344-4 ####[facility]ORYCLIA [id number] [address] Carboxyhemoglobin (BldV) [Mass fraction] 1.2 % Normal 0.0-2.0 [facility] Comment on above: Order Comment: Speci men Type: VENOUS BLOOD SPECIMEN Result Comment: Carb oxyhemoglobin Reference Range for Smokers: 2.0-8.0% Performed By: #### 2 4344-4 ####[facility]ORYCLIA [id number] [address] CO2 (BldV) [Partial pressure] 48 mm[Hg] Normal 42-55 [facility] Comment on above: Order Comment: Speci men Type: VENOUS BLOOD SPECIMEN Performed By: #### 2 4344-4 ####[facility]ORYCLIA [id number] [address] CO2 [Moles/Vol] 28.2 mmol/L Normal 25-29 [facility] Comment on above: Order Comment: Speci men Type: VENOUS BLOOD SPECIMEN Performed By: #### 2 4344-4 ####[facility]ORYCLIA [id number] [address] CO2 adjusted to patient's actual temperature (BldV) [Partial pressure] 49 mmHg Normal 42-55 [facility] Comment on above: Order Comment: Speci men Type: VENOUS BLOOD SPECIMEN Performed By: #### 2 4344-4 ####[facility]ORYCLIA [id number] [address] Glucose [Mass/Vol] 131 mg/dL High 60-105 [facility] Comment on above: Order Comment: Speci men Type: VENOUS BLOOD SPECIMEN Performed By: #### 2 4344-4 ####[facility]ORYCLIA [id number] [address] HCO3 (Bld) [Moles/Vol] 30.6 mmol/L High 24-28 [facility] Comment on above: Order Comment: Speci men Type: VENOUS BLOOD SPECIMEN Performed By: #### 2 4344-4 ####[facility]ORYCLIA [id number] [address] Hematocrit (Bld) [Volume fraction] 32.8 % Low 39.0-51.0 [facility] Comment on above: Order Comment: Speci men Type: VENOUS BLOOD SPECIMEN Performed By: #### 2 4344-4 ####[facility]ORYCLIA [id number] [address] Hemoglobin (Bld) [Mass/Vol] 10.6 g/dL Low 13.0-17.0 [facility] Comment on above: Order Comment: Speci men Type: VENOUS BLOOD SPECIMEN Performed By: #### 2 4344-4 ####[facility]ORYCLIA [id number] [address] [place] 6 Liters/min Normal [facility] Comment on above: Order Comment: Speci men Type: VENOUS BLOOD SPECIMEN Performed By: #### 2 4344-4 ####[facility]ATORYCLIA [id number] [place], [place] [address] [place] [address] [place] Methemoglobin (Bld) [Mass fraction] 1.0 % Normal 0.0-1.5 [facility] Comment on above: Order Comment: Speci men Type: VENOUS BLOOD SPECIMEN Performed By: #### 2 4344-4 ####[facility]ORYCLIA [id number] [address] O2 THERAPY NC = Nasal Cannula Normal [facility] Comment on above: Order Comment: Speci men Type: VENOUS BLOOD SPECIMEN Performed By: #### 2 4344-4 ####[facility]ORYCLIA [id number] [address] Oxygen (BldV) [Partial pressure] 42 mm[Hg] Normal 35-45 [facility] Comment on above: Order Comment: Speci men Type: VENOUS BLOOD SPECIMEN Performed By: #### 2 4344-4 ####[facility]ORYCLIA [id number] [address] Oxygen adjusted to patient's actual temperature (BldV) [Partial pressure] 43.8 mmHg Normal 35-45 [facility] Comment on above: Order Comment: Speci men Type: VENOUS BLOOD SPECIMEN Performed By: #### 2 4344-4 ####[facility]ORYCLIA [id number] [address] OF [place] Oxygen saturation in Blood 76.7 % Normal 60-85 [facility] Comment on above: Order Comment: Speci men Type: VENOUS BLOOD SPECIMEN Performed By: #### 2 4344-4 ####[facility]ORYCLIA [id number] [address] Oxyhemoglobin (BldV) [Mass fraction] 75 % Normal 60-85 [facility] Comment on above: Order Comment: Speci men Type: VENOUS BLOOD SPECIMEN Performed By: #### 2 4344-4 ####[facility]ORYCLIA [id number] [address] pH (BldV) 7.42 [pH] Normal 7.32-7.42 [facility] Comment on above: Order Comment: Speci men Type: VENOUS BLOOD SPECIMEN Performed By: #### 2 4344-4 ####[facility]ORYCLIA [id number] [address] pH adjusted to patient's actual temperature (BldV) 7.41 Normal 7.32-7.42 [facility] Comment on above: Order Comment: Speci men Type: VENOUS BLOOD SPECIMEN Performed By: #### 2 4344-4 ####[facility]ORYCLIA [id number] [address] Potassium [Moles/Vol] 3.5 mmol/L Normal 3.5-5.0 [facility] Comment on above: Order Comment: Speci men Type: VENOUS BLOOD SPECIMEN Performed By: #### 2 4344-4 ####[facility]ORYCLIA [id number] [address] STATES OF [facility] Sodium [Moles/Vol] 157 mmol/L High 136-144 [facility] Comment on above: Order Comment: Speci men Type: VENOUS BLOOD SPECIMEN Performed By: #### 2 4344-4 ####[facility]ORYCLIA [id number] [address] [place] Magnesium SerPl-mCncon 06-13 Magnesium [Mass/Vol] 3.0 mg/dL High 1.7-2.3 [facility] Comment on above: Order Comment: Speci men Type: BLOOD SPECIMEN Performed By: #### 2 4321-2, 64022-5, 2776-05 ####[facility]ORYCLIA [id number] [address] OF [facility] Magnesium [Mass/Vol] 2.2 mg/dL Normal 1.7-2.3 [facility] Comment on above: Order Comment: Speci men Type: BLOOD SPECIMEN Performed By: #### 2 4321-2, 2776, ####[facility]ORYCLIA [id number] [place] [address] [place] Phosphate SerPl-mCncon 06-13 Phosphate [Mass/Vol] 2.2 mg/dL Low 2.7-4.8 [facility] Comment on above: Order Comment: Speci men Type: BLOOD SPECIMEN Performed By: #### 2 4321-2, , 2776-05 ####[facility]ATORYCLIA [id number] [place] [address] [place] OF [facility] Phosphate [Mass/Vol] 1.8 mg/dL Low 2.7-4.8 [facility] Comment on above: Order Comment: Speci men Type: BLOOD SPECIMEN Performed By: #### 2 4321-2, 2776-05, ####[facility]ORYCLIA [id number] [address] STATES [place] XR CHEST 1V FRONTALon 2021 XR CHEST 1V FRONTAL Normal [facility] ALLIED HEALTHon 06-12-2021 ALLIED HEALTH Normal [facility] BRIEF OP NOTon 06-12-2021 BRIEF OP NOT Normal [facility] Bacteria Fld Culton 06-12-19 22 Bacteria identified Cx Nom (Body fld) CULTURE, BODY FLD: No growth 5 days GRAM STAIN: No organisms seen Moderate Polymorphonuclear leukocytes Normal [facility] Comment on above: Performed By: #### 6 11-4 ####[facility]ATORYCLIA [id number] [place] [address] [place] Basic metabolic 2000 panelon 06-12-2021 Anion gap [Moles/Vol] 6 mmol/L Low 9-18 [facility] Comment on above: Order Comment: Speci men Type: BLOOD SPECIMEN Performed By: #### 2 777-1, 60112-2, ####[facility]ATORYCLIA [id number] [place] [address] [place] Calcium [Mass/Vol] 8.7 mg/dL Normal 8.5-10.2 [facility] Comment on above: Order Comment: Speci men Type: BLOOD SPECIMEN Performed By: #### 2 777-1, 11636-4, ####[facility]ORYCLIA [id number] [address] Chloride [Moles/Vol] 118 mmol/L High 97-105 [facility] Comment on above: Order Comment: Speci men Type: BLOOD SPECIMEN Performed By: #### 2 777-1, 19953-0, ####[facility]ORYCLIA [id number] [address] STATES [place] CO2 [Moles/Vol] 28 mmol/L Normal 22-30 [facility] Comment on above: Order Comment: Speci men Type: BLOOD SPECIMEN Performed By: #### 2 777-1, 43199-1, ####[facility]ORYCLIA [id number] [address] [place] Creatinine [Mass/Vol] 0.77 mg/dL Normal 0.73-1.22 [facility] Comment on above: Order Comment: Speci men Type: BLOOD SPECIMEN Performed By: #### 2 777-1, , ####[facility]ORYCLIA [id number] [address] [place] GFR/1.73 sq M.predicted MDRD (S/P/Bld) [Vol rate/Area] mL/min/{1.73_m2} Normal [facility] Comment on above: Order Comment: [...] 777-1, , ####[facility]ATORYCLIA [id number] [place] [address] [place] Glucose [Mass/Vol] 116 mg/dL High 74-99 [facility] Comment on above: Order Comment: [...] 777-1, , ####[facility]ATORYCLIA [id number] [place] [address] [place] Potassium [Moles/Vol] 4.0 mmol/L Normal 3.7-5.1 [facility] Comment on above: Order Comment: Speci men Type: BLOOD SPECIMEN Performed By: #### 2 777-1, , ####[facility]ORYCLIA [id number] [place] [address] [place] Sodium [Moles/Vol] 152 mmol/L High 136-144 [facility] Comment on above: Order Comment: Speci men Type: BLOOD SPECIMEN Performed By: #### 2 777-1, , ####[facility]ORYCLIA [id number] [place] [address] [place] Urea nitrogen [Mass/Vol] 34 mg/dL High 9-24 [facility] Comment on above: Order Comment: Speci men Type: BLOOD SPECIMEN Performed By: #### 2 777-1, 49834-4, 36280-9 ####[facility]ORYCLIA [id number] [address] CBC panel Auto (Bld)on 06-12 Erythrocyte distribution width (RBC) [Ratio] 16.1 % High 11.5-15.0 [facility] Comment on above: Order Comment: Speci men Type: BLOOD SPECIMEN Performed By: #### 5 8410-2 ####[facility]ORYCLIA [id number] [address] Hematocrit (Bld) [Volume fraction] 32.8 % Low 39.0-51.0 [facility] Comment on above: Order Comment: Speci men Type: BLOOD SPECIMEN Performed By: #### 5 8410-2 ####[facility]ORYCLIA [id number] [address] Hemoglobin (Bld) [Mass/Vol] 9.9 g/dL Low 13.0-17.0 [facility] Comment on above: Order Comment: Speci men Type: BLOOD SPECIMEN Performed By: #### 5 8410-2 ####[facility]ATORYCLIA [id number] [address] MCH (RBC) [Entitic mass] 28.4 pg Normal 26.0-34.0 [facility] Comment on above: Order Comment: Speci men Type: BLOOD SPECIMEN Performed By: #### 5 8410-2 ####[facility]ORYCLIA [id number] [address] MCHC (RBC) [Mass/Vol] 30.2 g/dL Low 30.5-36.0 [facility] Comment on above: Order Comment: Speci men Type: BLOOD SPECIMEN Performed By: #### 5 8410-2 ####[facility]ORATORYCLIA [id number] [address] MCV (RBC) [Entitic vol] 94.3 fL Normal 80.0-100.0 [facility] Comment on above: Order Comment: Speci men Type: BLOOD SPECIMEN Performed By: #### 5 8410-2 ####[facility]ATORYCLIA [id number] [address] Nucleated RBC (Bld) [#/Vol] 10*3/uL Normal <0.01 [facility] Comment on above: Order Comment: Speci men Type: BLOOD SPECIMEN Performed By: #### 5 8410-2 ####[facility]ORYCLIA [id number] [address] Platelet mean volume (Bld) [Entitic vol] 11.2 fL Normal 9.0-12.7 [facility] Comment on above: Order Comment: Speci men Type: BLOOD SPECIMEN Performed By: #### 5 8410-2 ####[facility]ORATORYCLIA [id number] [address] Platelets (Bld) [#/Vol] 218 10*3/uL Normal 150-400 [facility] Comment on above: Order Comment: Speci men Type: BLOOD SPECIMEN Performed By: #### 5 8410-2 ####[facility] LABORATORYCLIA [id number] [address] RBC (Bld) [#/Vol] 3.48 10*6/uL Low 4.20-6.00 [facility] Comment on above: Order Comment: Speci men Type: BLOOD SPECIMEN Performed By: #### 5 8410-2 ####[facility]ORATORYCLIA [id number] [address] WBC (Bld) [#/Vol] 13.33 10*3/uL High 3.70-11.00 [facility] Comment on above: Order Comment: Speci men Type: BLOOD SPECIMEN Performed By: #### 5 8410-2 ####[facility]ORATORYCLIA [id number] [address] CONSULT PROGon 06-12-2021 CONSULT PROG Normal [facility] CT DRN PLACE PERIT/RETROP FL BIon 06-12-[address] PERIT/RETROP FL BI Normal [facility] HISTORY PHYSICALon HISTORY PHYSICAL Normal [facility] Magnesium SerPl-mCncon 06-12 Magnesium [Mass/Vol] 2.7 mg/dL High 1.7-2.3 [facility] Comment on above: Order Comment: Speci men Type: BLOOD SPECIMEN Performed By: #### 2 777-1, 10880-4, 82500-3 ####[facility]ORATORYCLIA [id number] [address] PT panel Coag (PPP)on 2021 INR Coag (PPP) [Relative time] 1.1 {INR} Normal 0.9-1.3 [facility] Comment on above: Order Comment: [...] 141:7S-47SNishimura RA, et al. [facility] 2017, 70: 252-289 Performed By: #### 3 4528-0 ####[facility]ORATORYCLIA [id number] [place] [id number] [facility] PT Coag (PPP) [Time] 11.9 s Normal 9.7-13.0 [facility] Comment on above: Order Comment: Speci men Type: BLOOD SPECIMEN Performed By: #### 3 4528-0 ####[facility]ORATORYCLIA [id number] [address] Phosphate SerPl-mCncon 06-12 Phosphate [Mass/Vol] 2.2 mg/dL Low 2.7-4.8 [facility] Comment on above: Order Comment: Speci men Type: BLOOD SPECIMEN Performed By: #### 2 777-1, 83510-6, 71808-7 ####[facility]ORATORYCLIA [id number] [address] XR ABDOMEN 1V SUPINEon 06-12 XR ABDOMEN 1V SUPINE Normal [facility] ALLIED HEALTHon 06-11-2021 ALLIED HEALTH Normal [facility] Bacteria Bld Culton 06-11-19 22 Bacteria identified Cx Nom (Bld) CULTURE, BLOOD: No growth 5 days Normal [facility] Comment on above: Performed By: #### 6 00-7 ####[facility]ORATORYCLIA [id number] [address] Bacteria identified Cx Nom (Bld) CULTURE, BLOOD: No growth 5 days Normal [facility] Comment on above: Performed By: #### 6 00-7 ####[facility] LABORATORYCLIA [id number] [address] Bacteria Ur Culton 2 Bacteria identified Cx Nom (U) CULTURE, URINE: No growth (<1,000 CFU/ml) [facility] Comment on above: Performed By: #### 6 30-4 ####[facility]ORATORYCLIA [id number] [address] Basic metabolic 2000 panelon 06-11-2021 Anion gap [Moles/Vol] 9 mmol/L Normal 9-18 [facility] Comment on above: Order Comment: Speci men Type: BLOOD SPECIMEN Performed By: #### 1 9123-9, 2777, 45326-5 ####[facility]ORATORYCLIA [id number] [address] STATES [facility] Calcium [Mass/Vol] 8.5 mg/dL Normal 8.5-10.2 [facility] Comment on above: Order Comment: Speci men Type: BLOOD SPECIMEN Performed By: #### 1 9123-9, 2777, 63041-3 ####[facility]ORATORYCLIA [id number] [address] Chloride [Moles/Vol] 118 mmol/L High 97-105 [facility] Comment on above: Order Comment: Speci men Type: BLOOD SPECIMEN Performed By: #### 1 9123-9, 2776-05, ####[facility]ORATORYCLIA [id number] [address] CO2 [Moles/Vol] 27 mmol/L Normal 22-30 [facility] Comment on above: Order Comment: Speci men Type: BLOOD SPECIMEN Performed By: #### 1 9123-9, 2776-05, ####[facility] LABORATORYCLIA [id number] [address] STATES OF [facility] Creatinine [Mass/Vol] 0.75 mg/dL Normal 0.73-1.22 [facility] Comment on above: Order Comment: Speci men Type: BLOOD SPECIMEN Performed By: #### 1 9123-9, 27711-04, ####[facility]ORATORYCLIA [id number] [address] [place] GFR/1.73 sq M.predicted MDRD (S/P/Bld) [Vol rate/Area] mL/min/{1.73_m2} Normal [facility] Comment on above: Order Comment: [...] GFR. Performed By: #### 1 9123-9, 2777-, 04515-8 ####[facility] LABORATORYCLIA [id number] [address] OF [facility] Glucose [Mass/Vol] 142 mg/dL High 74-99 [facility] Comment on above: Order Comment: [...] 1). Performed By: #### 1 9123-9, 2777, 67052-6 ####[facility] LABORATORYCLIA [id number] [address] STATES OF [facility] Potassium [Moles/Vol] 3.6 mmol/L Low 3.7-5.1 [facility] Comment on above: Order Comment: Speci men Type: BLOOD SPECIMEN Performed By: #### 1 9123-9, 2777, 39678-8 ####[facility]ORATORYCLIA [id number] [address] STATES OF [facility] Sodium [Moles/Vol] 154 mmol/L High 136-144 [facility] Comment on above: Order Comment: Speci men Type: BLOOD SPECIMEN Performed By: #### 1 9123-9, 2777-1, 96719-5 ####[facility]ORATORYCLIA [id number] [address] Urea nitrogen [Mass/Vol] 31 mg/dL High 9-24 [facility] Comment on above: Order Comment: Speci men Type: BLOOD SPECIMEN Performed By: #### 1 9123-9, 2777-1, 39689-8 ####[facility]ORATORYCLIA [id number] [address] C diff Tox gens Stl Ql MEGAN+p robeon 06-11-2021 C. difficile toxin genes MEGAN+probe Ql (Stl) Negative Normal Negative for C. difficile toxin by PCR [facility] Comment on above: Order Comment: Speci men Type: STOOL SPECIMEN Performed By: #### 5 4067-4 ####[facility]ORATORYCLIA [id number] [address] STATES [facility] CBC W Auto Differential pane l (Bld)on 06-11-2021 Basophils (Bld) [#/Vol] 0.03 10*3/uL Normal <0.11 [facility] Comment on above: Order Comment: Speci men Type: BLOOD SPECIMEN Performed By: #### 5 7021-8 ####[facility]ORATORYCLIA [id number] [address] Basophils/100 WBC (Bld) 0.2 % Normal [facility] Comment on above: Order Comment: Speci men Type: BLOOD SPECIMEN Performed By: #### 5 7021-8 ####[facility]ORATORYCLIA [id number] [address] Differential cell count method Nom (Bld) Auto Normal [facility] Comment on above: Order Comment: Speci men Type: BLOOD SPECIMEN Performed By: #### 5 7021-8 ####[facility]ORATORYCLIA [id number] [address] STATES [facility] Eosinophils (Bld) [#/Vol] 0.19 10*3/uL Normal <0.46 [facility] Comment on above: Order Comment: Speci men Type: BLOOD SPECIMEN Performed By: #### 5 7021-8 ####[facility] LABORATORYCLIA [id number] [address] Eosinophils/100 WBC (Bld) 1.5 % Normal [facility] Comment on above: Order Comment: Speci men Type: BLOOD SPECIMEN Performed By: #### 5 7021-8 ####[facility]ORATORYCLIA [id number] [address] Erythrocyte distribution width (RBC) [Ratio] 16.3 % High 11.5-15.0 [facility] Comment on above: Order Comment: Speci men Type: BLOOD SPECIMEN Performed By: #### 5 7021-8 ####[facility] LABORATORYCLIA [id number] [address] Hematocrit (Bld) [Volume fraction] 32.1 % Low 39.0-51.0 [facility] Comment on above: Order Comment: Speci men Type: BLOOD SPECIMEN Performed By: #### 5 7021-8 ####[facility]ATORYCLIA [id number] [address] Hemoglobin (Bld) [Mass/Vol] 9.3 g/dL Low 13.0-17.0 [facility] Comment on above: Order Comment: Speci men Type: BLOOD SPECIMEN Performed By: #### 5 7021-8 ####[facility] LABORATORYCLIA [id number] [address] IMMATURE GRAN % 0.6 % Normal [facility] Comment on above: Order Comment: Speci men Type: BLOOD SPECIMEN Performed By: #### 5 7021-8 ####[facility]ORATORYCLIA [id number] [address] IMMATURE GRAN ABS 0.08 k/uL Normal <0.10 [facility] Comment on above: Order Comment: Speci men Type: BLOOD SPECIMEN Performed By: #### 5 7021-8 ####[facility]ORATORYCLIA [id number] [address] Lymphocytes (Bld) [#/Vol] 1.65 10*3/uL Normal 1.00-4.00 [facility] Comment on above: Order Comment: Speci men Type: BLOOD SPECIMEN Performed By: #### 5 7021-8 ####[facility]ORATORYCLIA [id number] [address] Lymphocytes/100 WBC (Bld) 12.8 % Normal [facility] Comment on above: Order Comment: Speci men Type: BLOOD SPECIMEN Performed By: #### 5 7021-8 ####[facility]ORATORYCLIA [id number] [address] MCH (RBC) [Entitic mass] 27.2 pg Normal 26.0-34.0 [facility] Comment on above: Order Comment: Speci men Type: BLOOD SPECIMEN Performed By: #### 5 7021-8 ####[facility]ORATORYCLIA [id number] [address] MCHC (RBC) [Mass/Vol] 29.0 g/dL Low 30.5-36.0 [facility] Comment on above: Order Comment: Speci men Type: BLOOD SPECIMEN Performed By: #### 5 7021-8 ####[facility]ORATORYCLIA [id number] [address] MCV (RBC) [Entitic vol] 93.9 fL Normal 80.0-100.0 [facility] Comment on above: Order Comment: Speci men Type: BLOOD SPECIMEN Performed By: #### 5 7021-8 ####[facility]ATORYCLIA [id number] [address] Monocytes (Bld) [#/Vol] 0.68 10*3/uL Normal <0.87 [facility] Comment on above: Order Comment: Speci men Type: BLOOD SPECIMEN Performed By: #### 5 7021-8 ####[facility]ORATORYCLIA [id number] [address] Monocytes/100 WBC (Bld) 5.3 % Normal [facility] Comment on above: Order Comment: Speci men Type: BLOOD SPECIMEN Performed By: #### 5 7021-8 ####[facility]ATORYCLIA [id number] [address] Neutrophils (Bld) [#/Vol] 10.22 10*3/uL High 1.45-7.50 [facility] Comment on above: Order Comment: Speci men Type: BLOOD SPECIMEN Performed By: #### 5 7021-8 ####[facility]ATORYCLIA [id number] [address] Neutrophils/100 WBC (Bld) 79.6 % Normal [facility] Comment on above: Order Comment: Speci men Type: BLOOD SPECIMEN Performed By: #### 5 7021-8 ####[facility]ORYCLIA [id number] [address] Nucleated RBC (Bld) [#/Vol] 10*3/uL Normal <0.01 [facility] Comment on above: Order Comment: Speci men Type: BLOOD SPECIMEN Performed By: #### 5 7021-8 ####[facility]ORYCLIA [id number] [address] Nucleated RBC/100 WBC (Bld) [Ratio] 0.0 /100 WBC Normal 0.0 [facility] Comment on above: Order Comment: Speci men Type: BLOOD SPECIMEN Performed By: #### 5 7021-8 ####[facility]ORATORYCLIA [id number] [address] Platelet mean volume (Bld) [Entitic vol] 11.1 fL Normal 9.0-12.7 [facility] Comment on above: Order Comment: Speci men Type: BLOOD SPECIMEN Performed By: #### 5 7021-8 ####[facility]ORATORYCLIA [id number] [address] Platelets (Bld) [#/Vol] 188 10*3/uL Normal 150-400 [facility] Comment on above: Order Comment: Speci men Type: BLOOD SPECIMEN Performed By: #### 5 7021-8 ####[facility]ATORYCLIA [id number] [address] RBC (Bld) [#/Vol] 3.42 10*6/uL Low 4.20-6.00 [facility] Comment on above: Order Comment: Speci men Type: BLOOD SPECIMEN Performed By: #### 5 7021-8 ####[facility]ATORYCLIA [id number] [address] WBC (Bld) [#/Vol] 12.85 10*3/uL High 3.70-11.00 [facility] Comment on above: Order Comment: Speci men Type: BLOOD SPECIMEN Performed By: #### 5 7021-8 ####[facility]ATORYCLIA [id number] [address] CBC panel Auto (Bld)on 06-11 Erythrocyte distribution width (RBC) [Ratio] 16.2 % High 11.5-15.0 [facility] Comment on above: Order Comment: Speci men Type: BLOOD SPECIMEN Performed By: #### 5 8410-2 ####[facility]ATORYCLIA [id number] [address] Hematocrit (Bld) [Volume fraction] 34.5 % Low 39.0-51.0 [facility] Comment on above: Order Comment: Speci men Type: BLOOD SPECIMEN Performed By: #### 5 8410-2 ####[facility]ATORYCLIA [id number] [address] Hemoglobin (Bld) [Mass/Vol] 10.3 g/dL Low 13.0-17.0 [facility] Comment on above: Order Comment: Speci men Type: BLOOD SPECIMEN Performed By: #### 5 8410-2 ####[facility]ATORYCLIA [id number] [address] MCH (RBC) [Entitic mass] 28.1 pg Normal 26.0-34.0 [facility] Comment on above: Order Comment: Speci men Type: BLOOD SPECIMEN Performed By: #### 5 8410-2 ####[facility]ATORYCLIA [id number] [address] MCHC (RBC) [Mass/Vol] 29.9 g/dL Low 30.5-36.0 [facility] Comment on above: Order Comment: Speci men Type: BLOOD SPECIMEN Performed By: #### 5 8410-2 ####[facility]ORATORYCLIA [id number] [address] MCV (RBC) [Entitic vol] 94.3 fL Normal 80.0-100.0 [facility] Comment on above: Order Comment: Speci men Type: BLOOD SPECIMEN Performed By: #### 5 8410-2 ####[facility]ATORYCLIA [id number] [address] Nucleated RBC (Bld) [#/Vol] 10*3/uL Normal <0.01 [facility] Comment on above: Order Comment: Speci men Type: BLOOD SPECIMEN Performed By: #### 5 8410-2 ####[facility]ATORYCLIA [id number] [address] Platelet mean volume (Bld) [Entitic vol] 10.9 fL Normal 9.0-12.7 [facility] Comment on above: Order Comment: Speci men Type: BLOOD SPECIMEN Performed By: #### 5 8410-2 ####[facility]ATORYCLIA [id number] [address] Platelets (Bld) [#/Vol] 210 10*3/uL Normal 150-400 [facility] Comment on above: Order Comment: Speci men Type: BLOOD SPECIMEN Performed By: #### 5 8410-2 ####[facility]ORATORYCLIA [id number] [place], [place] [id number] [place] [address] STATES OF [facility] RBC (Bld) [#/Vol] 3.66 10*6/uL Low 4.20-6.00 [facility] Comment on above: Order Comment: Speci men Type: BLOOD SPECIMEN Performed By: #### 5 8410-2 ####[facility]ORATORYCLIA [id number] [address] STATES OF [facility] WBC (Bld) [#/Vol] 13.03 10*3/uL High 3.70-11.00 [facility] Comment on above: Order Comment: Speci men Type: BLOOD SPECIMEN Performed By: #### 5 8410-2 ####[facility]ATORYCLIA [id number] [address] CONSULT PROGon 06-11-2021 CONSULT PROG Normal [facility] CONSULT PROG Normal [facility] CONSULT PROG Normal [facility] CT ABD/PEL W IVCONon 022 CT ABD/PEL W IVCON Invalid Interpretation Code [facility] Magnesium SerPl-mCncon 06-11 Magnesium [Mass/Vol] 2.7 mg/dL High 1.7-2.3 [facility] Comment on above: Order Comment: Speci men Type: BLOOD SPECIMEN Performed By: #### 1 9123-9, 2777-1, 40247-5 ####[facility]ATORYCLIA [id number] [address] Phosphate SerPl-mCncon 06-11 Phosphate [Mass/Vol] 2.5 mg/dL Low 2.7-4.8 [facility] Comment on above: Order Comment: Speci men Type: BLOOD SPECIMEN Performed By: #### 1 9123-9, 2777-1, 24044-4 ####[facility]ORATORYCLIA [id number] [address] OF [facility] Basic metabolic 2000 panelon 06-10-2021 Anion gap [Moles/Vol] 7 mmol/L Low 9-18 [facility] Comment on above: Order Comment: Speci men Type: BLOOD SPECIMEN Performed By: #### 2 777-1, 95276-2, , HFP ####[facility] LABORATORYCLIA [id number] [address] STATES OF [facility] Calcium [Mass/Vol] 8.5 mg/dL Normal 8.5-10.2 [facility] Comment on above: Order Comment: Speci men Type: BLOOD SPECIMEN Performed By: #### 2 777-1, 34563-8, , HFP ####[facility]ORATORYCLIA [id number] [address] STATES OF [facility] Chloride [Moles/Vol] 118 mmol/L High 97-105 [facility] Comment on above: Order Comment: Speci men Type: BLOOD SPECIMEN Performed By: #### 2 777-1, 27511-1, , HFP ####[facility]ORATORYCLIA [id number] [address] [place] CO2 [Moles/Vol] 26 mmol/L Normal 22-30 [facility] Comment on above: Order Comment: Speci men Type: BLOOD SPECIMEN Performed By: #### 2 777-1, 49959-1, , HFP ####[facility]ORATORYCLIA [id number] [address] [place] Creatinine [Mass/Vol] 0.70 mg/dL Low 0.73-1.22 [facility] Comment on above: Order Comment: Speci men Type: BLOOD SPECIMEN Performed By: #### 2 777-1, 78376-1, , HFP ####[facility]ORATORYCLIA [id number] [address] [place] GFR/1.73 sq M.predicted MDRD (S/P/Bld) [Vol rate/Area] mL/min/{1.73_m2} Normal [facility] Comment on above: Order Comment: [...] actual GFR. Performed By: #### 2 777-1, 00020-1, , [facility] ####[facility]ORATORYCLIA [id number] [place] [address] [place] Glucose [Mass/Vol] 135 mg/dL High 74-99 [facility] Comment on above: Order Comment: [facility] Type: BLOOD SPECIMEN Result Comment: [employer] [place] [...] 2016.39(Suppl 1). Performed By: #### 2 777-1, 49870-7, , [facility] ####[facility]ORATORYCLIA [id number] [place] [address] [place] Potassium [Moles/Vol] 3.9 mmol/L Normal 3.7-5.1 [facility] Comment on above: Order Comment: Speci [facility] Type: BLOOD SPECIMEN Performed By: #### 2 777-1, 67422-3, , [facility] ####[facility] LABORATORYCLIA [id number] [place], [place] [id number] [place] [address] Sodium [Moles/Vol] 151 mmol/L High 136-144 [facility] Comment on above: Order Comment: Speci men Type: BLOOD SPECIMEN Performed By: #### 2 777-1, 05548-1, , [facility] ####[facility] LABORATORYCLIA [id number] [place] [id number] [facility] Urea nitrogen [Mass/Vol] 27 mg/dL High 9-24 [facility] Comment on above: Order Comment: Speci men Type: BLOOD SPECIMEN Performed By: #### 2 777-1, 72172-5, , [facility] ####[facility]ORATORYCLIA [id number] [address] CASE MANAGEMon 06-10-2021 CASE MANAGEM Normal [facility] CBC panel Auto (Bld)on 06-10 Erythrocyte distribution width (RBC) [Ratio] 16.2 % High 11.5-15.0 [facility] Comment on above: Order Comment: Speci men Type: BLOOD SPECIMEN Performed By: #### 5 8410-2 ####[facility]ORATORYCLIA [id number] [address] Hematocrit (Bld) [Volume fraction] 34.8 % Low 39.0-51.0 [facility] Comment on above: Order Comment: Speci men Type: BLOOD SPECIMEN Performed By: #### 5 8410-2 ####[facility]ORATORYCLIA [id number] [address] Hemoglobin (Bld) [Mass/Vol] 10.2 g/dL Low 13.0-17.0 [facility] Comment on above: Order Comment: Speci men Type: BLOOD SPECIMEN Performed By: #### 5 8410-2 ####[facility]ORATORYCLIA [id number] [address] [place] MCH (RBC) [Entitic mass] 27.1 pg Normal 26.0-34.0 [facility] Comment on above: Order Comment: Speci men Type: BLOOD SPECIMEN Performed By: #### 5 8410-2 ####[facility]ATORYCLIA [id number] [address] MCHC (RBC) [Mass/Vol] 29.3 g/dL Low 30.5-36.0 [facility] Comment on above: Order Comment: Speci men Type: BLOOD SPECIMEN Performed By: #### 5 8410-2 ####[facility]ORATORYCLIA [id number] [address] MCV (RBC) [Entitic vol] 92.6 fL Normal 80.0-100.0 [facility] Comment on above: Order Comment: Speci men Type: BLOOD SPECIMEN Performed By: #### 5 8410-2 ####[facility]ATORYCLIA [id number] [address] Nucleated RBC (Bld) [#/Vol] 10*3/uL Normal <0.01 [facility] Comment on above: Order Comment: Speci men Type: BLOOD SPECIMEN Performed By: #### 5 8410-2 ####[facility]ATORYCLIA [id number] [address] Platelet mean volume (Bld) [Entitic vol] 10.4 fL Normal 9.0-12.7 [facility] Comment on above: Order Comment: Speci men Type: BLOOD SPECIMEN Performed By: #### 5 8410-2 ####[facility]ORATORYCLIA [id number] [address] Platelets (Bld) [#/Vol] 206 10*3/uL Normal 150-400 [facility] Comment on above: Order Comment: Speci men Type: BLOOD SPECIMEN Performed By: #### 5 8410-2 ####[facility]ATORYCLIA [id number] [address] RBC (Bld) [#/Vol] 3.76 10*6/uL Low 4.20-6.00 [facility] Comment on above: Order Comment: Speci men Type: BLOOD SPECIMEN Performed By: #### 5 8410-2 ####[facility]ATORYCLIA [id number] [address] WBC (Bld) [#/Vol] 11.36 10*3/uL High 3.70-11.00 [facility] Comment on above: Order Comment: Speci men Type: BLOOD SPECIMEN Performed By: #### 5 8410-2 ####[facility]ORATORYCLIA [id number] [address] HEPATIC FUNCTION PNLon 06-10 Albumin [Mass/Vol] 3.1 g/dL Low 3.9-4.9 [facility] Comment on above: Order Comment: Speci men Type: BLOOD SPECIMEN Performed By: #### 2 777-1, 10116-1, , HFP ####[facility]ATORYCLIA [id number] [address] ALP [Catalytic activity/Vol] 73 U/L Normal 38-113 [facility] Comment on above: Order Comment: Speci men Type: BLOOD SPECIMEN Performed By: #### 2 777-1, 75783-7, , HFP ####[facility] LABORATORYCLIA [id number] [address] ALT With P-5'-P [Catalytic activity/Vol] 64 U/L High 10-54 [facility] Comment on above: Order Comment: Speci men Type: BLOOD SPECIMEN Performed By: #### 2 777-1, 02989-0, , HFP ####[facility]ORATORYCLIA [id number] [address] AST With P-5'-P [Catalytic activity/Vol] 44 U/L High 14-40 [facility] Comment on above: Order Comment: Speci men Type: BLOOD SPECIMEN Performed By: #### 2 777-1, 56967-6, , [facility] ####[facility] LABORATORYCLIA [id number] [address] Bilirubin [Mass/Vol] 0.5 mg/dL Normal 0.2-1.3 [facility] Comment on above: Order Comment: Speci men Type: BLOOD SPECIMEN Performed By: #### 2 777-1, 22651-6, , [facility] ####[facility] LABORATORYCLIA [id number] [address] Bilirubin.conjugated [Mass/Vol] mg/dL Normal <0.2 [facility] Comment on above: Order Comment: Speci men Type: BLOOD SPECIMEN Performed By: #### 2 777-1, 53088-7, , [facility] ####[facility] LABORATORYCLIA [id number] [address] Protein [Mass/Vol] 5.7 g/dL Low 6.3-8.0 [facility] Comment on above: Order Comment: Speci men Type: BLOOD SPECIMEN Performed By: #### 2 777-1, 37637-0, , [facility] ####[facility] LABORATORYCLIA [id number] [address] LEVETIRACETAMon 06-10-2021 levETIRAcetam [Mass/Vol] 57.7 ug/mL High 12.0-46.0 [facility] Comment on above: Order Comment: [...] [facility]'s Isrrael Perez [facility] Pathology and Laboratory Medicine [place] ([facility]). It has not been cleared or approved by the FDA. [facility] is regulated under CLIA as qualified to perform high complexity testing. This test is used for clinical purposes. It should not be regarded as investigational or for research. Performed By: #### L DARY ####[facility] REFERENCE LABCLIA [id number] [address] [place] [id number] [address] [place] Magnesium SerPl-mCncon 06-10 Magnesium [Mass/Vol] 2.7 mg/dL High 1.7-2.3 [facility] Comment on above: Order Comment: Speci men Type: BLOOD SPECIMEN Performed By: #### 2 777-1, 03241-7, , [facility] ####[facility]ATORYCLIA [id number] [place] [address] [place] Phosphate SerPl-ncon 06-10 Phosphate [Mass/Vol] 1.8 mg/dL Low 2.7-4.8 [facility] Comment on above: Order Comment: Speci men Type: BLOOD SPECIMEN Performed By: #### 2 777-1, 97751-2, , [facility] ####[facility]ORATORYCLIA [id number] [place] [address] [place] ALLIED HEALTHon 06-09-2021 ALLIED HEALTH Normal [facility] ALLIED HEALTH Normal [facility] ALLIED HEALTH Normal [facility] ALLIED HEALTH Normal [facility] Basic metabolic 2000 panelon 06-09-2021 Anion gap [Moles/Vol] 8 mmol/L Low 9-18 [facility] Comment on above: Order Comment: Speci men Type: BLOOD SPECIMEN Performed By: #### 2 4321-2, 2776-, ####[facility]ORATORYCLIA [id number] [place] [address] [place] Calcium [Mass/Vol] 8.3 mg/dL Low 8.5-10.2 [facility] Comment on above: Order Comment: Speci men Type: BLOOD SPECIMEN Performed By: #### 2 4321-2, 2776-, ####[facility]ATORYCLIA [id number] [place] [address] [place] Chloride [Moles/Vol] 116 mmol/L High 97-105 [facility] Comment on above: Order Comment: Speci men Type: BLOOD SPECIMEN Performed By: #### 2 4321-2, 2776-05, ####[facility]ATORYCLIA [id number] [place] [address] [place] CO2 [Moles/Vol] 27 mmol/L Normal 22-30 [facility] Comment on above: Order Comment: Speci men Type: BLOOD SPECIMEN Performed By: #### 2 4321-2, 2776-05, ####[facility]ATORYCLIA [id number] [address] STATES OF [facility] Creatinine [Mass/Vol] 0.70 mg/dL Low 0.73-1.22 [facility] Comment on above: Order Comment: Speci men Type: BLOOD SPECIMEN Performed By: #### 2 4321-2, 2776-05, ####[facility]ATORYCLIA [id number] [place] [address] [place] GFR/1.73 sq M.predicted MDRD (S/P/Bld) [Vol rate/Area] mL/min/{1.73_m2} Normal [facility] Comment on above: Order Comment: [...] GFR. Performed By: #### 2 4321-2, 2777, ####[facility]ATORYCLIA [id number] [place] [address] [place] Glucose [Mass/Vol] 123 mg/dL High 74-99 [facility] Comment on above: Order Comment: [...] 4321-2, 2776-05, ####[facility]ATORYCLIA [id number] [address] [place] Potassium [Moles/Vol] 3.5 mmol/L Low 3.7-5.1 [facility] Comment on above: Order Comment: Speci men Type: BLOOD SPECIMEN Performed By: #### 2 4321-2, 2776-05, ####[facility]ATORYCLIA [id number] [address] [place] Sodium [Moles/Vol] 151 mmol/L High 136-144 [facility] Comment on above: Order Comment: Speci men Type: BLOOD SPECIMEN Performed By: #### 2 4321-2, 2776-05, ####[facility]ATORYCLIA [id number] [place] [address] [place] Urea nitrogen [Mass/Vol] 39 mg/dL High 9-24 [facility] Comment on above: Order Comment: Speci men Type: BLOOD SPECIMEN Performed By: #### 2 4321-2, 2776-05, ####[facility]ATORYCLIA [id number] [address] CBC panel Auto (Bld)on 06-09 Erythrocyte distribution width (RBC) [Ratio] 16.2 % High 11.5-15.0 [facility] Comment on above: Order Comment: Speci men Type: BLOOD SPECIMEN Performed By: #### 5 8410-2 ####[facility]ATORYCLIA [id number] [address] Hematocrit (Bld) [Volume fraction] 33.7 % Low 39.0-51.0 [facility] Comment on above: Order Comment: Speci men Type: BLOOD SPECIMEN Performed By: #### 5 8410-2 ####[facility]ATORYCLIA [id number] [address] Hemoglobin (Bld) [Mass/Vol] 10.2 g/dL Low 13.0-17.0 [facility] Comment on above: Order Comment: Speci men Type: BLOOD SPECIMEN Performed By: #### 5 8410-2 ####[facility]ATORYCLIA [id number] [address] MCH (RBC) [Entitic mass] 27.4 pg Normal 26.0-34.0 [facility] Comment on above: Order Comment: Speci men Type: BLOOD SPECIMEN Performed By: #### 5 8410-2 ####[facility]ATORYCLIA [id number] [address] MCHC (RBC) [Mass/Vol] 30.3 g/dL Low 30.5-36.0 [facility] Comment on above: Order Comment: Speci men Type: BLOOD SPECIMEN Performed By: #### 5 8410-2 ####[facility]ATORYCLIA [id number] [address] MCV (RBC) [Entitic vol] 90.6 fL Normal 80.0-100.0 [facility] Comment on above: Order Comment: Speci men Type: BLOOD SPECIMEN Performed By: #### 5 8410-2 ####[facility]ATORYCLIA [id number] [address] Nucleated RBC (Bld) [#/Vol] 10*3/uL Normal <0.01 [facility] Comment on above: Order Comment: Speci men Type: BLOOD SPECIMEN Performed By: #### 5 8410-2 ####[facility]ATORYCLIA [id number] [address] Platelet mean volume (Bld) [Entitic vol] 10.3 fL Normal 9.0-12.7 [facility] Comment on above: Order Comment: Speci men Type: BLOOD SPECIMEN Performed By: #### 5 8410-2 ####[facility]ORATORYCLIA [id number] [address] Platelets (Bld) [#/Vol] 219 10*3/uL Normal 150-400 [facility] Comment on above: Order Comment: Speci men Type: BLOOD SPECIMEN Performed By: #### 5 8410-2 ####[facility]ATORYCLIA [id number] [address] RBC (Bld) [#/Vol] 3.72 10*6/uL Low 4.20-6.00 [facility] Comment on above: Order Comment: Speci men Type: BLOOD SPECIMEN Performed By: #### 5 8410-2 ####[facility]ORATORYCLIA [id number] [address] OF [facility] WBC (Bld) [#/Vol] 13.02 10*3/uL High 3.70-11.00 [facility] Comment on above: Order Comment: Speci men Type: BLOOD SPECIMEN Performed By: #### 5 8410-2 ####[facility]ATORYCLIA [id number] [address] CONSULT PROGon 06-09-2021 CONSULT PROG Normal [facility] CONSULT PROG Normal [facility] CT BRAIN WO IVCONon 06-09-[address] BRAIN WO IVCON Normal [facility] Magnesium SerPl-mCncon 06-09 Magnesium [Mass/Vol] 2.8 mg/dL High 1.7-2.3 [facility] Comment on above: Order Comment: Speci men Type: BLOOD SPECIMEN Performed By: #### 2 4321-2, 2777-1, 06301-7 ####[facility]ATORYCLIA [id number] [address] NURSING PROGon 06-09-2021 NURSING PROG Normal [facility] NUTRITIONon 06-09-2021 NUTRITION Normal [facility] PT EDon 06-09-2021 PT ED Normal [facility] Phosphate SerPl-mCncon 06-09 Phosphate [Mass/Vol] 2.2 mg/dL Low 2.7-4.8 [facility] Comment on above: Order Comment: Speci men Type: BLOOD SPECIMEN Performed By: #### 2 4321-2, 2777-1, ####[facility]ATORYCLIA [id number] [address] Vancomycin random [Mass/Vol] on 06-09-2021 Vancomycin [...] 4 091-5 ####[facility]ATORYCLIA [id number] [address] XR ABD 2V SUPINE W UPR/DECUB /CTLon 06-09-2021 XR ABD 2V SUPINE W UPR/DECUB/CTL Normal [facility] XR CHEST 1V FRONTALon 2021 XR CHEST 1V FRONTAL Normal [facility] XR NECK SOFT TISSUE 2V AP/LA Ton 06-09-2021 XR NECK SOFT TISSUE 2V AP/LAT Normal [facility] XR SKULL 2V AP/LATon 022 XR SKULL 2V AP/LAT Normal [facility] ALLIED HEALTHon 06-08-2021 ALLIED HEALTH Normal [facility] ANES POSTPROC EVALon 022 ANES POSTPROC EVAL Normal [facility] ANES PRE-OPon 06-08-2021 ANES PRE-OP Normal [facility] BRIEF OP NOTon 06-08-2021 BRIEF OP NOT Normal [facility] Bacteria Spec Anaerobe Culto n 06-08-2021 Bacteria identified Anaer cx Nom (Unsp spec) ORGANISM ID: 1 Rare Staphylococcus saccharolyticus Identification performed by [facility]-Main See scanned document for susceptibility report Normal [facility] Comment on above: Performed By: #### 6 462-6 635-3 ####[facility]ORATORYCLIA [id number] [place] [address] [place] Bacteria Wnd Culton 06-08-19 22 Bacteria identified Cx Nom (Wound) CULTURE, INTRAOPERATIVE HARDWARE: No growth 5 days GRAM STAIN: Not performed on specimen type Normal [facility] Comment on above: Performed By: #### 6 462-6 635-3 ####[facility]ATORYCLIA [id number] [place] [address] [place] Basic metabolic 2000 panelon 06-08-2021 Anion gap [Moles/Vol] 9 mmol/L Normal 9-18 [facility] Comment on above: Order Comment: Speci men Type: BLOOD SPECIMEN Performed By: #### 2 4321-2, 2776-05, ####[facility]ATORYCLIA [id number] [place] [address] [place] Calcium [Mass/Vol] 8.7 mg/dL Normal 8.5-10.2 [facility] Comment on above: Order Comment: Speci men Type: BLOOD SPECIMEN Performed By: #### 2 4321-2, 2776-05, ####[facility]ATORYCLIA [id number] [place] [address] [place] Chloride [Moles/Vol] 113 mmol/L High 97-105 [facility] Comment on above: Order Comment: Speci men Type: BLOOD SPECIMEN Performed By: #### 2 4321-2, 2776-05, ####[facility]ATORYCLIA [id number] [place], [place] [address] [place] [address] [place] CO2 [Moles/Vol] 26 mmol/L Normal 22-30 [facility] Comment on above: Order Comment: Speci men Type: BLOOD SPECIMEN Performed By: #### 2 4321-2, 2776-05, ####[facility]ATORYCLIA [id number] [address] [place] Creatinine [Mass/Vol] 0.68 mg/dL Low 0.73-1.22 [facility] Comment on above: Order Comment: Speci men Type: BLOOD SPECIMEN Performed By: #### 2 4321-2, 2776-05, ####[facility]ORYCLIA [id number] [address] [place] GFR/1.73 sq M.predicted MDRD (S/P/Bld) [Vol rate/Area] mL/min/{1.73_m2} Normal [facility] Comment on above: Order Comment: [...] 4321-2, 2776-05, ####[facility]ORATORYCLIA [id number] [place], [place] [address] [place] [address] [place] Glucose [Mass/Vol] 146 mg/dL High 74-99 [facility] Comment on above: Order Comment: [...] 4321-2, 2776-05, ####[facility]ORATORYCLIA [id number] [address] STATES OF [facility] Potassium [Moles/Vol] 3.6 mmol/L Low 3.7-5.1 [facility] Comment on above: Order Comment: Speci men Type: BLOOD SPECIMEN Performed By: #### 2 4321-2, 2776-05, ####[facility]ATORYCLIA [id number] [address] STATES OF [facility] Sodium [Moles/Vol] 148 mmol/L High 136-144 [facility] Comment on above: Order Comment: Speci men Type: BLOOD SPECIMEN Performed By: #### 2 4321-2, 2776-05, ####[facility]ATORYCLIA [id number] [address] [place] Urea nitrogen [Mass/Vol] 36 mg/dL High 9-24 [facility] Comment on above: Order Comment: Speci men Type: BLOOD SPECIMEN Performed By: #### 2 4321-2, 2776-05, ####[facility]ATORYCLIA [id number] [address] [place] CASE MANAGEMon 02-02-2022 CASE MANAGEM Normal [facility] CBC panel Auto (Bld)on 06-08 Erythrocyte distribution width (RBC) [Ratio] 16.0 % High 11.5-15.0 [facility] Comment on above: Order Comment: Speci men Type: BLOOD SPECIMEN Performed By: #### 5 8410-2 ####[facility]ATORYCLIA [id number] [address] Hematocrit (Bld) [Volume fraction] 38.4 % Low 39.0-51.0 [facility] Comment on above: Order Comment: Speci men Type: BLOOD SPECIMEN Performed By: #### 5 8410-2 ####[facility]ATORYCLIA [id number] [address] Hemoglobin (Bld) [Mass/Vol] 12.1 g/dL Low 13.0-17.0 [facility] Comment on above: Order Comment: Speci men Type: BLOOD SPECIMEN Performed By: #### 5 8410-2 ####[facility]ATORYCLIA [id number] [address] MCH (RBC) [Entitic mass] 28.3 pg Normal 26.0-34.0 [facility] Comment on above: Order Comment: Speci men Type: BLOOD SPECIMEN Performed By: #### 5 8410-2 ####[facility]ATORYCLIA [id number] [address] MCHC (RBC) [Mass/Vol] 31.5 g/dL Normal 30.5-36.0 [facility] Comment on above: Order Comment: Speci men Type: BLOOD SPECIMEN Performed By: #### 5 8410-2 ####[facility]ATORYCLIA [id number] [address] MCV (RBC) [Entitic vol] 89.9 fL Normal 80.0-100.0 [facility] Comment on above: Order Comment: Speci men Type: BLOOD SPECIMEN Performed By: #### 5 8410-2 ####[facility]ATORYCLIA [id number] [address] Nucleated RBC (Bld) [#/Vol] 10*3/uL Normal <0.01 [facility] Comment on above: Order Comment: Speci men Type: BLOOD SPECIMEN Performed By: #### 5 8410-2 ####[facility]ATORYCLIA [id number] [address] Platelet mean volume (Bld) [Entitic vol] 10.3 fL Normal 9.0-12.7 [facility] Comment on above: Order Comment: Speci men Type: BLOOD SPECIMEN Performed By: #### 5 8410-2 ####[facility]ATORYCLIA [id number] [address] Platelets (Bld) [#/Vol] 236 10*3/uL Normal 150-400 [facility] Comment on above: Order Comment: Speci men Type: BLOOD SPECIMEN Performed By: #### 5 8410-2 ####[facility]ATORYCLIA [id number] [address] RBC (Bld) [#/Vol] 4.27 10*6/uL Normal 4.20-6.00 [facility] Comment on above: Order Comment: Speci men Type: BLOOD SPECIMEN Performed By: #### 5 8410-2 ####[facility]ATORYCLIA [id number] [address] WBC (Bld) [#/Vol] 11.06 10*3/uL High 3.70-11.00 [facility] Comment on above: Order Comment: Speci men Type: BLOOD SPECIMEN Performed By: #### 5 8410-2 ####[facility]ATORYCLIA [id number] [address] CONSULT PROGon 06-08-2021 CONSULT PROG Normal [facility] CT BRAIN WO IVCONon 06-08-19 CT BRAIN WO IVCON Normal [facility] Magnesium SerPl-mCncon 02-02 -2022 Magnesium [Mass/Vol] 2.8 mg/dL High 1.7-2.3 [facility] Comment on above: Order Comment: Speci men Type: BLOOD SPECIMEN Performed By: #### 2 4321-2, 2777-1, 79008-0 ####[facility]ATORYCLIA [id number] [address] Microorganism Spec Culton Microorganism identified Cx Nom (Unsp spec) CULTURE, FUNGAL: No Fungus isolated after 28 days FUNGAL SMEAR: No fungus seen Normal [facility] Comment on above: Performed By: #### 1 1475-1 ####[facility]ATORYCLIA [id number] [address] NURSING PROGon 06-08-2021 NURSING PROG Normal [facility] OPERATIVE NOon 06-08-2021 OPERATIVE NO Normal [facility] OPERATIVE NO Normal [facility] PT panel Coag (PPP)on 2021 INR Coag (PPP) [Relative time] 1.1 {INR} Normal 0.9-1.3 [facility] Comment on above: Order Comment: [...] 70: 252-289 Performed By: #### 3 4528-0, 08554-6 ####[facility] LABORATORYCLIA [id number] [place], [place] [address] [place] [address] OF [facility] PT Coag (PPP) [Time] 11.9 s Normal 9.7-13.0 [facility] Comment on above: Order Comment: Speci men Type: BLOOD SPECIMEN Performed By: #### 3 4528-0, 27859-2 ####[facility]ORATORYCLIA [id number] [address] OF [facility] Phosphate SerPl-mCncon 06-08 Phosphate [Mass/Vol] 2.3 mg/dL Low 2.7-4.8 [facility] Comment on above: Order Comment: Speci men Type: BLOOD SPECIMEN Performed By: #### 2 4321-2, 2777-1, 67638-9 ####[facility]ATORYCLIA [id number] [address] aPTT PPPon 06-08-2021 aPTT Coag (PPP) [Time] 24.2 s Normal 23.0-32.4 [facility] Comment on above: Order Comment: Speci men Type: BLOOD SPECIMEN Performed By: #### 3 4528-0, 51558-0 ####[facility]ATORYCLIA [id number] [address] OF [facility] ALLIED HEALTHon 06-07-2021 ALLIED HEALTH Normal [facility] ALLIED HEALTH Normal [facility] ALLIED HEALTH Normal [facility] Bacteria CSF Culton 06-07-19 22 Bacteria identified Cx Nom (CSF) CULTURE, CSF: No growth 14 days GRAM STAIN: No organisms seen Rare Mononuclear cells Rare Polymorphonuclear leukocytes Gram stain performed on cytospun specimen. Normal [facility] Comment on above: Performed By: #### 6 06-4 ####[facility]ORATORYCLIA [id number] [address] OF [facility] Basic metabolic 2000 panelon 06-07-2021 Anion gap [Moles/Vol] 9 mmol/L Normal 9-18 [facility] Comment on above: Order Comment: Speci men Type: BLOOD SPECIMEN Performed By: #### 1 9123-9, 27711-04, 71765-2 ####[facility]ATORYCLIA [id number] [address] Calcium [Mass/Vol] 8.8 mg/dL Normal 8.5-10.2 [facility] Comment on above: Order Comment: Speci men Type: BLOOD SPECIMEN Performed By: #### 1 9123-9, 2776-05, 32672-2 ####[facility]ATORYCLIA [id number] [address] OF [facility] Chloride [Moles/Vol] 111 mmol/L High 97-105 [facility] Comment on above: Order Comment: Speci men Type: BLOOD SPECIMEN Performed By: #### 1 9123-9, 2776-05, 48181-2 ####[facility]ATORYCLIA [id number] [address] STATES OF [facility] CO2 [Moles/Vol] 27 mmol/L Normal 22-30 [facility] Comment on above: Order Comment: Speci men Type: BLOOD SPECIMEN Performed By: #### 1 9123-9, 2776-05, 93935-9 ####[facility]ATORYCLIA [id number] [address] OF [facility] Creatinine [Mass/Vol] 0.66 mg/dL Low 0.73-1.22 [facility] Comment on above: Order Comment: Speci men Type: BLOOD SPECIMEN Performed By: #### 1 9123-9, 27711-04, ####[facility]ATORYCLIA [id number] [place] [address] [place] GFR/1.73 sq M.predicted MDRD (S/P/Bld) [Vol rate/Area] mL/min/{1.73_m2} Normal [facility] Comment on above: Order Comment: [...] GFR. Performed By: #### 1 9123-9, 2777-, 42131-1 ####[facility]ORATORYCLIA [id number] [place] [address] [place] Glucose [Mass/Vol] 123 mg/dL High 74-99 [facility] Comment on above: Order Comment: [...] 1). Performed By: #### 1 9123-9, 2777, 23324-1 ####[facility]ATORYCLIA [id number] [address] STATES OF [facility] Potassium [Moles/Vol] 3.6 mmol/L Low 3.7-5.1 [facility] Comment on above: Order Comment: Speci men Type: BLOOD SPECIMEN Performed By: #### 1 9123-9, 2777, 30583-8 ####[facility]ORATORYCLIA [id number] [address] [place] Sodium [Moles/Vol] 147 mmol/L High 136-144 [facility] Comment on above: Order Comment: Speci men Type: BLOOD SPECIMEN Performed By: #### 1 9123-9, 2777-1, 16095-0 ####[facility]ORATORYCLIA [id number] [address] Urea nitrogen [Mass/Vol] 30 mg/dL High 9-24 [facility] Comment on above: Order Comment: Speci men Type: BLOOD SPECIMEN Performed By: #### 1 9123-9, 2777-1, 83893-5 ####[facility]ATORYCLIA [id number] [address] CBC W Auto Differential pane l (Bld)on 06-07-2021 Basophils (Bld) [#/Vol] 10*3/uL Normal <0.11 [facility] Comment on above: Order Comment: Speci men Type: BLOOD SPECIMEN Performed By: #### 5 7021-8 ####[facility]ORATORYCLIA [id number] [address] Basophils/100 WBC (Bld) 0.2 % Normal [facility] Comment on above: Order Comment: Speci men Type: BLOOD SPECIMEN Performed By: #### 5 7021-8 ####[facility]ORATORYCLIA [id number] [address] Differential cell count method Nom (Bld) Auto Normal [facility] Comment on above: Order Comment: Speci men Type: BLOOD SPECIMEN Performed By: #### 5 7021-8 ####[facility]ATORYCLIA [id number] [address] Eosinophils (Bld) [#/Vol] 0.06 10*3/uL Normal <0.46 [facility] Comment on above: Order Comment: Speci men Type: BLOOD SPECIMEN Performed By: #### 5 7021-8 ####[facility]ATORYCLIA [id number] [address] Eosinophils/100 WBC (Bld) 0.6 % Normal [facility] Comment on above: Order Comment: Speci men Type: BLOOD SPECIMEN Performed By: #### 5 7021-8 ####[facility] LABORATORYCLIA [id number] [address] Erythrocyte distribution width (RBC) [Ratio] 15.8 % High 11.5-15.0 [facility] Comment on above: Order Comment: Speci men Type: BLOOD SPECIMEN Performed By: #### 5 7021-8 ####[facility] LABORATORYCLIA [id number] [address] Hematocrit (Bld) [Volume fraction] 40.4 % Normal 39.0-51.0 [facility] Comment on above: Order Comment: Speci men Type: BLOOD SPECIMEN Performed By: #### 5 7021-8 ####[facility]ORATORYCLIA [id number] [address] Hemoglobin (Bld) [Mass/Vol] 12.4 g/dL Low 13.0-17.0 [facility] Comment on above: Order Comment: Speci men Type: BLOOD SPECIMEN Performed By: #### 5 7021-8 ####[facility]ATORYCLIA [id number] [address] IMMATURE GRAN % 0.7 % Normal [facility] Comment on above: Order Comment: Speci men Type: BLOOD SPECIMEN Performed By: #### 5 7021-8 ####[facility]ATORYCLIA [id number] [address] IMMATURE GRAN ABS 0.07 k/uL Normal <0.10 [facility] Comment on above: Order Comment: Speci men Type: BLOOD SPECIMEN Performed By: #### 5 7021-8 ####[facility]ATORYCLIA [id number] [address] Lymphocytes (Bld) [#/Vol] 1.43 10*3/uL Normal 1.00-4.00 [facility] Comment on above: Order Comment: Speci men Type: BLOOD SPECIMEN Performed By: #### 5 7021-8 ####[facility]ATORYCLIA [id number] [address] Lymphocytes/100 WBC (Bld) 14.1 % Normal [facility] Comment on above: Order Comment: Speci men Type: BLOOD SPECIMEN Performed By: #### 5 7021-8 ####[facility]ORY[facility] [id number] [address] MCH (RBC) [Entitic mass] 27.6 pg Normal 26.0-34.0 [facility] Comment on above: Order Comment: Speci men Type: BLOOD SPECIMEN Performed By: #### 5 7021-8 ####[facility]ORYCL[facility] [id number] [address] MCHC (RBC) [Mass/Vol] 30.7 g/dL Normal 30.5-36.0 [facility] Comment on above: Order Comment: Speci men Type: BLOOD SPECIMEN Performed By: #### 5 7021-8 ####[facility]ORYCL[facility] [id number] [address] MCV (RBC) [Entitic vol] 89.8 fL Normal 80.0-100.0 [facility] Comment on above: Order Comment: Speci men Type: BLOOD SPECIMEN Performed By: #### 5 7021-8 ####[facility]ORYCL[facility] [id number] [address] Monocytes (Bld) [#/Vol] 0.82 10*3/uL Normal <0.87 [facility] Comment on above: Order Comment: Speci men Type: BLOOD SPECIMEN Performed By: #### 5 7021-8 ####[facility] [id number] [address] Monocytes/100 WBC (Bld) 8.1 % Normal [facility] Comment on above: Order Comment: Speci men Type: BLOOD SPECIMEN Performed By: #### 5 7021-8 ####[facility]ORY[facility] [id number] [place] [address] Neutrophils (Bld) [#/Vol] 7.74 10*3/uL High 1.45-7.50 [facility] Comment on above: Order Comment: Speci men Type: BLOOD SPECIMEN Performed By: #### 5 7021-8 ####[facility]ORYCL[facility] [id number] [address] Neutrophils/100 WBC (Bld) 76.3 % Normal [facility] Comment on above: Order Comment: Speci men Type: BLOOD SPECIMEN Performed By: #### 5 7021-8 ####[facility] LABORATORYCLIA [id number] [address] Nucleated RBC (Bld) [#/Vol] 10*3/uL Normal <0.01 [facility] Comment on above: Order Comment: Speci men Type: BLOOD SPECIMEN Performed By: #### 5 7021-8 ####[facility] LABORATORYCLIA [id number] [address] Nucleated RBC/100 WBC (Bld) [Ratio] 0.0 /100 WBC Normal 0.0 [facility] Comment on above: Order Comment: Speci men Type: BLOOD SPECIMEN Performed By: #### 5 7021-8 ####[facility] LABORATORYCLIA [id number] [address] Platelet mean volume (Bld) [Entitic vol] 10.4 fL Normal 9.0-12.7 [facility] Comment on above: Order Comment: Speci men Type: BLOOD SPECIMEN Performed By: #### 5 7021-8 ####[facility] LABORATORYCLIA [id number] [address] Platelets (Bld) [#/Vol] 236 10*3/uL Normal 150-400 [facility] Comment on above: Order Comment: Speci men Type: BLOOD SPECIMEN Performed By: #### 5 7021-8 ####[facility] LABORATORYCLIA [id number] [place] [address] [place] RBC (Bld) [#/Vol] 4.50 10*6/uL Normal 4.20-6.00 [facility] Comment on above: Order Comment: Speci men Type: BLOOD SPECIMEN Performed By: #### 5 7021-8 ####[facility] LABORATORYCLIA [id number] [address] WBC (Bld) [#/Vol] 10.14 10*3/uL Normal 3.70-11.00 [facility] Comment on above: Order Comment: Speci men Type: BLOOD SPECIMEN Performed By: #### 5 7021-8 ####[facility] LABORATORYCLIA [id number] [address] CBC panel Auto (Bld)on 06-07 Erythrocyte distribution width (RBC) [Ratio] 15.8 % High 11.5-15.0 [facility] Comment on above: Order Comment: Speci men Type: BLOOD SPECIMEN Performed By: #### 5 8410-2 ####[facility] LABORATORYCLIA [id number] [address] Hematocrit (Bld) [Volume fraction] 40.0 % Normal 39.0-51.0 [facility] Comment on above: Order Comment: Speci men Type: BLOOD SPECIMEN Performed By: #### 5 8410-2 ####[facility]ORATORYCLIA [id number] [address] Hemoglobin (Bld) [Mass/Vol] 12.3 g/dL Low 13.0-17.0 [facility] Comment on above: Order Comment: Speci men Type: BLOOD SPECIMEN Performed By: #### 5 8410-2 ####[facility] LABORATORYCLIA [id number] [address] MCH (RBC) [Entitic mass] 27.3 pg Normal 26.0-34.0 [facility] Comment on above: Order Comment: Speci men Type: BLOOD SPECIMEN Performed By: #### 5 8410-2 ####[facility]ORATORYCLIA [id number] [address] MCHC (RBC) [Mass/Vol] 30.8 g/dL Normal 30.5-36.0 [facility] Comment on above: Order Comment: Speci men Type: BLOOD SPECIMEN Performed By: #### 5 8410-2 ####[facility] LABORATORYCLIA [id number] [address] MCV (RBC) [Entitic vol] 88.7 fL Normal 80.0-100.0 [facility] Comment on above: Order Comment: Speci men Type: BLOOD SPECIMEN Performed By: #### 5 8410-2 ####[facility] LABORATORYCLIA [id number] [address] Nucleated RBC (Bld) [#/Vol] 10*3/uL Normal <0.01 [facility] Comment on above: Order Comment: Speci men Type: BLOOD SPECIMEN Performed By: #### 5 8410-2 ####[facility] LABORATORYCLIA [id number] [address] Platelet mean volume (Bld) [Entitic vol] 10.0 fL Normal 9.0-12.7 [facility] Comment on above: Order Comment: Speci men Type: BLOOD SPECIMEN Performed By: #### 5 8410-2 ####[facility] LABORATORYCLIA [id number] [address] Platelets (Bld) [#/Vol] 234 10*3/uL Normal 150-400 [facility] Comment on above: Order Comment: Speci men Type: BLOOD SPECIMEN Performed By: #### 5 8410-2 ####[facility] LABORATORYCLIA [id number] [address] RBC (Bld) [#/Vol] 4.51 10*6/uL Normal 4.20-6.00 [facility] Comment on above: Order Comment: Speci men Type: BLOOD SPECIMEN Performed By: #### 5 8410-2 ####[facility] LABORATORYCLIA [id number] [address] [place] WBC (Bld) [#/Vol] 11.47 10*3/uL High 3.70-11.00 [facility] Comment on above: Order Comment: Speci men Type: BLOOD SPECIMEN Performed By: #### 5 8410-2 ####[facility] LABORATORYCLIA [id number] [address] CONSULT PROGon 06-07-2021 CONSULT PROG Normal [facility] CONSULT PROG Normal [facility] CSF MANUAL DIFFon 06-07-2021 DIF TTL, CSF 92 cells counted Normal [facility] Comment on above: Order Comment: Speci men Type: CEREBROSPINAL FLUID Performed By: #### 3 4563-7, [id number], [id number] ####[facility] LABORATORYCLIA [id number] [address] EOSIN%, CSF 1 % Normal [facility] Comment on above: Order Comment: Speci men Type: CEREBROSPINAL FLUID Performed By: #### 3 4563-7, [id number], [id number] ####[facility]ORATORYCLIA [id number] [address] [place] LYMPH%, CSF 21 % Low 50-90 [facility] Comment on above: Order Comment: Speci men Type: CEREBROSPINAL FLUID Performed By: #### 3 4563-7, [id number], [id number] ####[facility]ORATORYCLIA [id number] [address] [place] MACRO%, CSF 27 % High <1 [facility] Comment on above: Order Comment: Speci men Type: CEREBROSPINAL FLUID Result Comment: Tati ected result: Previously reported as 22 % on 06/07/2021 at 1:49 PM EST. Performed By: #### 3 4563-7, [id number], [id number] ####[facility]ORATORYCLIA [id number] [address] [place] MONO%, CSF 36 % Normal 10-50 [facility] Comment on above: Order Comment: Speci men Type: CEREBROSPINAL FLUID Performed By: #### 3 4563-7, [id number], [id number] ####[facility] LABORATORYCLIA [id number] [address] [place] NEUT%, CSF 11 % High 0-3 [facility] Comment on above: Order Comment: Speci men Type: CEREBROSPINAL FLUID Performed By: #### 3 4563-7, [id number], [id number] ####[facility]ORATORYCLIA [id number] [address] OTHER CL%, CSF 4 % Normal [facility] Comment on above: Order Comment: Speci men Type: CEREBROSPINAL FLUID Result Comment: Path review to follow.Corrected result: Previously reported as 10 % on 06/07/2021 at 1:49 PM EST. Performed By: #### 3 4563-7, [id number], [id number] ####[facility] LABORATORYCLIA [id number] [address] CSF PATHOLOGIST INTERP (LAB REFLEX ORDER-NO BILL)on 06-07-2021 CSF STAFF REVIEW Negative for maligna nt cells. Rare immature myeloid or ventricular lining cells. Normal [facility] Comment on above: Order Comment: Speci men Type: CEREBROSPINAL FLUID Performed By: #### 3 4563-7, [id number], [id number] ####[facility] LABORATORYCLIA [id number] [address] Pathologist name Reviewed by Eloise rebolledo MD [facility] Comment on above: Order Comment: Speci men Type: CEREBROSPINAL FLUID Performed By: #### 3 4563-7, [id number], [id number] ####[facility] LABORATORYCLIA [id number] [address] BRAIN WO IVCONon 06-07-19 CT BRAIN WO IVCON Normal [facility] CT BRAIN WO IVCON Normal [facility] Cell count panel (CSF)on Clarity (CSF) Clear Normal Clear [facility] Comment on above: Order Comment: Speci men Type: CEREBROSPINAL FLUID Performed By: #### 3 4563-7, [id number], [id number] ####[facility]ORATORYCLIA [id number] [address] Clarity (Unsp spec) Not Indicated Normal Clear [facility] Comment on above: Order Comment: Speci men Type: CEREBROSPINAL FLUID Performed By: #### 3 4563-7, [id number], [id number] ####[facility]ATORYCLIA [id number] [address] Color (CSF) Colorless Normal Colorless [facility] Comment on above: Order Comment: Speci men Type: CEREBROSPINAL FLUID Performed By: #### 3 4563-7, [id number], [id number] ####[facility]ORATORYCLIA [id number] [address] Color (Spun CSF) Not Indicated Normal Colorless [facility] Comment on above: Order Comment: Speci men Type: CEREBROSPINAL FLUID Performed By: #### 3 4563-7, [id number], [id number] ####[facility]ORATORYCLIA [id number] [address] CSF TUBE NUMBER Sterile Container Normal [facility] Comment on above: Order Comment: Speci men Type: CEREBROSPINAL FLUID Performed By: #### 3 4563-7, [id number], [id number] ####[facility]ORATORYCLIA [id number] [address] RBC Manual cnt (CSF) [#/Vol] 42 cells/uL High 0-5 [facility] Comment on above: Order Comment: Speci men Type: CEREBROSPINAL FLUID Performed By: #### 3 4563-7, [id number], [id number] ####[facility]ATORYCLIA [id number] [address] WBC Manual cnt (CSF) [#/Vol] 1 cells/uL Normal 0-5 [facility] Comment on above: Order Comment: Speci men Type: CEREBROSPINAL FLUID Performed By: #### 3 4563-7, [id number], [id number] ####[facility] LABORATORYCLIA [id number] [address] [place] Glucose CSF-mCncon 2 Glucose (CSF) [Mass/Vol] 92 mg/dL High 40-70 [facility] Comment on above: Order Comment: Speci men Type: CEREBROSPINAL FLUID Result Comment: Lumb ar CSF glucose values of healthy patients are approximately 60% of the plasma values and must always be compared with a concurrently measured plasma value for adequate clinical interpretation.References: 1. Glucose HK (GLUC3) [package insert V 12.0 Syrian]. [employer], [place], [place]. September 2015. 2. Michelle Mooer, Loki HGarfield (2015). Chapter 7: Glucose and Lactate. Marianela Rothman.(eds.), Cerebrospinal Fluid in Clinical Neurology. Dickenson: [facility] ([facility]). Performed By: #### 2 880-3, 2342-4 ####[facility] LABORATORYCLIA [id number] [address] STATES OF [facility] Lactate (Bld) [Moles/Vol]on 06-07-2021 Lactate [Moles/Vol] 0.9 mmol/L Normal 0.5-2.2 [facility] Comment on above: Order Comment: Speci men Type: BLOOD SPECIMEN Performed By: #### 3 2693-4 ####[facility]ORATORYCLIA [id number] [address] [place] Lipase SerPl-cCncon 06-07-19 22 Lipase [Catalytic activity/Vol] 35 U/L Normal 16-61 [facility] Comment on above: Order Comment: Speci men Type: BLOOD SPECIMEN Performed By: #### 3 040-3, PROCAL ####[facility]ORATORYCLIA [id number] [address] [place] Magnesium SerPl-mCncon 06-07 Magnesium [Mass/Vol] 2.7 mg/dL High 1.7-2.3 [facility] Comment on above: Order Comment: Speci men Type: BLOOD SPECIMEN Performed By: #### 1 9123-9, 2777-1, 50052-9 ####[facility]ORATORYCLIA [id number] [address] PROCALCITONIN (LAB)on 2021 Procalcitonin [Mass/Vol] 0.13 ng/mL High <0.09 [facility] Comment on above: Order Comment: Speci men Type: BLOOD SPECIMEN Result Comment: For a guided interpretation of test results, please visit the [facility] in Procalcitonin Calculator, [email or web address]. Performed By: #### 3 040-3, PROCAL ####[facility] [id number] [address] OF [facility] Phosphate SerPl-ncon 06-07 Phosphate [Mass/Vol] 1.9 mg/dL Low 2.7-4.8 [facility] Comment on above: Order Comment: Speci men Type: BLOOD SPECIMEN Performed By: #### 1 9123-9, 2777-1, 07606-2 ####[facility]CL[facility] [id number] [address] Prot CSF-mCncon 06-07-2021 Protein (CSF) [Mass/Vol] 33 mg/dL Normal 15-45 [facility] Comment on above: Order Comment: Speci men Type: CEREBROSPINAL FLUID Performed By: #### 2 880-3, 2342-4 ####[facility]ATORYCLIA [id number] [address] SARS-CoV-2 RNA Resp Ql MEGAN+p robeon 06-07-2021 SARS-CoV-2 (COVID-19) RNA MEGAN+probe Ql (Resp) COVID 19 RESULT: SARS-CoV-2 (Agent of COVID-19) Not Detected by PCR. This test has been authorized by FDA under an Emergency Use Authorization (EUA). Normal [facility] Comment on above: Performed By: #### 9 4500-6 ####[facility] LABORATORYCLIA [id number] [place] [address] [facility] TYPE AND SCREENon 06-07-2021 ABO O Normal [facility] Comment on above: Order Comment: Speci men Type: BLOOD SPECIMEN Performed By: #### T SCR ####[facility] BLOOD BANKCLIA [id number] [place] [id number] [facility] HISTORICAL AB SCR STATUS Negative Normal [facility] Comment on above: Order Comment: Speci men Type: BLOOD SPECIMEN Performed By: #### T SCR ####[facility] BLO[facility] BANKCLIA [id number] [address] Rh Nom (Bld) Positive Normal [facility] Comment on above: Order Comment: Speci men Type: BLOOD SPECIMEN Performed By: #### T SCR ####[facility] BLOOD BANKCLIA [id number] [address] TYPE AND SCREEN EXPIRATION 06/10/2021 23:59 Normal [facility] Comment on above: Order Comment: Speci men Type: BLOOD SPECIMEN Performed By: #### T SCR ####[facility] BLO[facility] BANKCLIA [id number] [address] Vancomycin random [Mass/Vol] on 06-07-2021 Vancomycin [...] 4 091-5 ####[facility]ORATORYCLIA [id number] [address] XR CHEST 1V FRONTAL PORTon 0 06-07-2021 XR CHEST 1V FRONTAL PORT Normal [facility] Basic metabolic 2000 panelon 06-06-2021 Anion gap [Moles/Vol] 11 mmol/L Normal 9-18 [facility] Comment on above: Order Comment: Speci men Type: BLOOD SPECIMEN Performed By: #### 2 4321-2, , 2776-05 ####[facility]ORATORYCLIA [id number] [address] STATES [facility] Calcium [Mass/Vol] 8.6 mg/dL Normal 8.5-10.2 [facility] Comment on above: Order Comment: Speci men Type: BLOOD SPECIMEN Performed By: #### 2 4321-2, , 2776-05 ####[facility] LABORATORYCLIA [id number] [address] [place] Chloride [Moles/Vol] 108 mmol/L High 97-105 [facility] Comment on above: Order Comment: Speci men Type: BLOOD SPECIMEN Performed By: #### 2 4321-2, , 2776-05 ####[facility] LABORATORYCLIA [id number] [address] [place] CO2 [Moles/Vol] 25 mmol/L Normal 22-30 [facility] Comment on above: Order Comment: Speci men Type: BLOOD SPECIMEN Performed By: #### 2 4321-2, , 2776-05 ####[facility]ORATORYCLIA [id number] [address] STATES OF [facility] Creatinine [Mass/Vol] 0.76 mg/dL Normal 0.73-1.22 [facility] Comment on above: Order Comment: Speci men Type: BLOOD SPECIMEN Performed By: #### 2 4321-2, , 2776-05 ####[facility] LABORATORYCLIA [id number] [place] [address] [place] GFR/1.73 sq M.predicted MDRD (S/P/Bld) [Vol rate/Area] mL/min/{1.73_m2} Normal [facility] Comment on above: Order Comment: Speci men Type: BLOOD SPECIMEN Result Comment: >60e GFR (Estimated GFR) Units of measure: mL/min/1.73 meters squaredeGFR is derived from the reexpressed MDRD Study equation using the following parameters: serum creatinine, age, gender and race. The creatinine assay has been calibrated to be traceable to IDAZ. An eGFR <60 mL/min/1.73m2 for >3 months is consistent with chronic kidney disease. Refer to KDOQI guidelines for clinical interpretation. In patients with unstable renal function, e.g. those with acute kidney injury, the eGFR may not accurately reflect actual GFR. Performed By: #### 2 4321-2, , 2776-05 ####[facility] LABORATORYCLIA [id number] [place] [address] [place] Glucose [Mass/Vol] 116 mg/dL High 74-99 [facility] Comment on above: Order Comment: [...] , 2776-05 ####[facility] LABORATORYCLIA [id number] [place] [address] [place] Potassium [Moles/Vol] 3.5 mmol/L Low 3.7-5.1 [facility] Comment on above: Order Comment: Speci men Type: BLOOD SPECIMEN Performed By: #### 2 4321-2, , 2776-05 ####[facility]ORATORYCLIA [id number] [place] [address] [place] Sodium [Moles/Vol] 144 mmol/L Normal 136-144 [facility] Comment on above: Order Comment: Speci men Type: BLOOD SPECIMEN Performed By: #### 2 4321-2, 67542-1, 2776-05 ####[facility]ATORYCLIA [id number] [address] Urea nitrogen [Mass/Vol] 31 mg/dL High 9-24 [facility] Comment on above: Order Comment: Speci men Type: BLOOD SPECIMEN Performed By: #### 2 4321-2, , 2776-05 ####[facility]ORATORYCLIA [id number] [address] CASE MANAGEMon 06-06-2021 CASE MANAGEM Normal [facility] CBC panel Auto (Bld)on 06-06 Erythrocyte distribution width (RBC) [Ratio] 15.8 % High 11.5-15.0 [facility] Comment on above: Order Comment: Speci men Type: BLOOD SPECIMEN Performed By: #### 5 8410-2 ####[facility]ATORYCLIA [id number] [address] Hematocrit (Bld) [Volume fraction] 39.5 % Normal 39.0-51.0 [facility] Comment on above: Order Comment: Speci men Type: BLOOD SPECIMEN Performed By: #### 5 8410-2 ####[facility]ATORYCLIA [id number] [address] Hemoglobin (Bld) [Mass/Vol] 12.2 g/dL Low 13.0-17.0 [facility] Comment on above: Order Comment: Speci men Type: BLOOD SPECIMEN Performed By: #### 5 8410-2 ####[facility]ATORYCLIA [id number] [address] MCH (RBC) [Entitic mass] 27.8 pg Normal 26.0-34.0 [facility] Comment on above: Order Comment: Speci men Type: BLOOD SPECIMEN Performed By: #### 5 8410-2 ####[facility]ATORYCLIA [id number] [address] MCHC (RBC) [Mass/Vol] 30.9 g/dL Normal 30.5-36.0 [facility] Comment on above: Order Comment: Speci men Type: BLOOD SPECIMEN Performed By: #### 5 8410-2 ####[facility] LABORATORYCLIA [id number] [address] MCV (RBC) [Entitic vol] 90.0 fL Normal 80.0-100.0 [facility] Comment on above: Order Comment: Speci men Type: BLOOD SPECIMEN Performed By: #### 5 8410-2 ####[facility]ORATORYCLIA [id number] [address] Nucleated RBC (Bld) [#/Vol] 10*3/uL Normal <0.01 [facility] Comment on above: Order Comment: Speci men Type: BLOOD SPECIMEN Performed By: #### 5 8410-2 ####[facility]ATORYCLIA [id number] [address] Platelet mean volume (Bld) [Entitic vol] 10.4 fL Normal 9.0-12.7 [facility] Comment on above: Order Comment: Speci men Type: BLOOD SPECIMEN Performed By: #### 5 8410-2 ####[facility]ORATORYCLIA [id number] [address] Platelets (Bld) [#/Vol] 236 10*3/uL Normal 150-400 [facility] Comment on above: Order Comment: Speci men Type: BLOOD SPECIMEN Performed By: #### 5 8410-2 ####[facility]ATORYCLIA [id number] [address] RBC (Bld) [#/Vol] 4.39 10*6/uL Normal 4.20-6.00 [facility] Comment on above: Order Comment: Speci men Type: BLOOD SPECIMEN Performed By: #### 5 8410-2 ####[facility] LABORATORYCLIA [id number] [place], [place] [id number] [place] [address] WBC (Bld) [#/Vol] 9.74 10*3/uL Normal 3.70-11.00 [facility] Comment on above: Order Comment: Speci men Type: BLOOD SPECIMEN Performed By: #### 5 8410-2 ####[facility] LABORATORYCLIA [id number] [place] [address] [facility] CONSULT PROGon 06-06-2021 CONSULT PROG Normal [facility] CONSULT PROG Normal [facility] Magnesium SerPl-mCncon 06-06 Magnesium [Mass/Vol] 2.5 mg/dL High 1.7-2.3 [facility] Comment on above: Order Comment: Speci men Type: BLOOD SPECIMEN Performed By: #### 2 4321-2, 55845-4, 2777-1 ####[facility]ORATORYCLIA [id number] [address] PT panel Coag (PPP)on 2021 INR Coag (PPP) [Relative time] 1.0 {INR} Normal 0.9-1.3 [facility] Comment on above: Order Comment: [...] 70: 252-289 Performed By: #### 3 4528-0, 86196-6 ####[facility] LABORATORYCLIA [id number] [address] PT Coag (PPP) [Time] 11.4 s Normal 9.7-13.0 [facility] Comment on above: Order Comment: Speci men Type: BLOOD SPECIMEN Performed By: #### 3 4528-0, 00872-8 ####[facility] LABORATORYCLIA [id number] [address] Phosphate SerPl-mCncon 06-06 Phosphate [Mass/Vol] 2.3 mg/dL Low 2.7-4.8 [facility] Comment on above: Order Comment: Speci men Type: BLOOD SPECIMEN Performed By: #### 2 4321-2, 49048-0, 2777-1 ####[facility] LABORATORYCLIA [id number] [address] THROMBOGRAPH HEPARINASE PANE [place] 06-06-2021 Clot angle after addition of heparinase TEG (Bld) [Angle] 70.2 degrees Normal 47.0-74.0 [facility] Comment on above: Order Comment: Speci men Type: BLOOD SPECIMEN Performed By: #### T EGHPP ####[facility] LABORATORYCLIA [id number] [address] Clot Lysis 30 Min post maximum clot amplitude TEG (Bld) [Length fraction] 0.0 % Normal 0.0-8.0 [facility] Comment on above: Order Comment: Speci men Type: BLOOD SPECIMEN Performed By: #### T EGHPP ####[facility]ORATORYCLIA [id number] [address] Clotting time after addition of heparinase TEG (Bld) 5.7 minutes Normal 4.0-10.0 [facility] Comment on above: Order Comment: Speci men Type: BLOOD SPECIMEN Performed By: #### T EGHPP ####[facility] LABORATORYCLIA [id number] [address] Coagulation index TEG Qn (Bld) 1.2 Normal -4.6-3.2 [facility] Comment on above: Order Comment: Speci men Type: BLOOD SPECIMEN Result Comment: The Coagulation Index, a secondary parameter, is labeled by the ocean export account manager as for "research use only" and is used per the ocean export account manager's instructions. Its performance characteristics were determined by [facility]'s [facility] Pathology and Laboratory Medicine [place] in a manner consistent with CLIA requirements. This test has not been cleared by the U.S. Food and Drug Administration. Performed By: #### T EGHPP ####[facility] LABORATORYCLIA [id number] [address] Maximum clot firmness after addition of heparinase TEG (Bld) [Length] 64.0 mm Normal 51.0-75.0 [facility] Comment on above: Order Comment: Speci men Type: BLOOD SPECIMEN Performed By: #### T EGHPP ####[facility] LABORATORYCLIA [id number] [address] OF [facility] Vancomycin random [Mass/Vol] on 06-06-2021 Vancomycin [Mass/Vol] [...] 4 091-5 ####[facility] LABORATORYCLIA [id number] [address] STATES OF [facility] Vancomycin [Mass/Vol] 13.5 ug/mL Normal 10.0-20.0 [facility] Comment on above: Order Comment: Speci men Type: BLOOD SPECIMEN Result Comment: Refe rence ranges and high/low indicator flags are provided as general guidelines only. The treating physician must determine appropriate target levels/dosing based on the specific clinical situation. Performed By: #### 4 091-5 ####[facility] LABORATORYCLIA [id number] [address] [place] aPTT PPPon 06-06-2021 aPTT Coag (PPP) [Time] 27.8 s Normal 23.0-32.4 [facility] Comment on above: Order Comment: Speci men Type: BLOOD SPECIMEN Performed By: #### 3 4528-0, 69361-2 ####[facility] LABORATORYCLIA [id number] [address] [place] Basic metabolic 2000 panelon 06-05-2021 Anion gap [Moles/Vol] 11 mmol/L Normal 9-18 [facility] Comment on above: Order Comment: Speci men Type: BLOOD SPECIMEN Performed By: #### 1 9123-9, 17659-2, 2776- ####[facility] LABORATORYCLIA [id number] [place] [address] [place] Calcium [Mass/Vol] 8.6 mg/dL Normal 8.5-10.2 [facility] Comment on above: Order Comment: Speci men Type: BLOOD SPECIMEN Performed By: #### 1 9123-9, 70369-5, 2776- ####[facility]ORATORYCLIA [id number] [address] [place] [facility] Chloride [Moles/Vol] 108 mmol/L High 97-105 [facility] Comment on above: Order Comment: Speci men Type: BLOOD SPECIMEN Performed By: #### 1 9123-9, 18706-2, 2776- ####[facility]ATORYCLIA [id number] [place] [address] [place] CO2 [Moles/Vol] 25 mmol/L Normal 22-30 [facility] Comment on above: Order Comment: Speci men Type: BLOOD SPECIMEN Performed By: #### 1 9123-9, 46070-3, 2776- ####[facility]ORYCLIA [id number] [place] [address] [place] Creatinine [Mass/Vol] 0.77 mg/dL Normal 0.73-1.22 [facility] Comment on above: [facility]: [facility] Type[facility] B[facility]OD [facility]EN Performed By: #### 1 9123-9, 28327-1, 2777-1 ####[facility]ORATORYCLIA [id number] [place] [address] [place] GFR/1.73 sq M.predicted MDRD (S/P/Bld) [Vol rate/Area] mL/min/{1.73_m2} Normal [facility] Comment on above: Order Comment: [...] actual GFR. Performed By: #### 1 9123-9, 23293-3, 2777-1 ####[facility] [id number] [place] [address] [place] Glucose [Mass/Vol] 96 mg/dL Normal 74-99 [facility] Comment on above: Order Comment: [facility] Type: BLOOD SPECIMEN Result Comment: The [place] [...] 2016.39(Suppl 1). Performed By: #### 1 9123-9, 75300-1, 2776-05 ####[facility]ATORYCLIA [id number] [address] STATES [facility] Potassium [Moles/Vol] 3.9 mmol/L Normal 3.7-5.1 [facility] Comment on above: Order Comment: Speci men Type: BLOOD SPECIMEN Performed By: #### 1 9123-9, 73436-8, 2776- ####[facility]ORYCLIA [id number] [address] Sodium [Moles/Vol] 144 mmol/L Normal 136-144 [facility] Comment on above: Order Comment: Speci men Type: BLOOD SPECIMEN Performed By: #### 1 91239, 48131-0, 2776-05 ####[facility]ATORYCLIA [id number] [address] Urea nitrogen [Mass/Vol] 26 mg/dL High 9-24 [facility] Comment on above: Order Comment: Speci men Type: BLOOD SPECIMEN Performed By: #### 1 9123-9, , 2776-05 ####[facility]ATORYCLIA [id number] [address] CBC panel Auto (Bld)on 06-05 Erythrocyte distribution width (RBC) [Ratio] 15.9 % High 11.5-15.0 [facility] Comment on above: Order Comment: Speci men Type: BLOOD SPECIMEN Performed By: #### 5 8410-2 ####[facility]ORYCLIA [id number] [address] Hematocrit (Bld) [Volume fraction] 39.6 % Normal 39.0-51.0 [facility] Comment on above: Order Comment: Speci men Type: BLOOD SPECIMEN Performed By: #### 5 8410-2 ####[facility]ATORYCLIA [id number] [address] Hemoglobin (Bld) [Mass/Vol] 12.3 g/dL Low 13.0-17.0 [facility] Comment on above: Order Comment: Speci men Type: BLOOD SPECIMEN Performed By: #### 5 8410-2 ####[facility]ATORYCLIA [id number] [address] MCH (RBC) [Entitic mass] 28.1 pg Normal 26.0-34.0 [facility] Comment on above: Order Comment: Speci men Type: BLOOD SPECIMEN Performed By: #### 5 8410-2 ####[facility]ORYCLIA [id number] [address] MCHC (RBC) [Mass/Vol] 31.1 g/dL Normal 30.5-36.0 [facility] Comment on above: Order Comment: Speci men Type: BLOOD SPECIMEN Performed By: #### 5 8410-2 ####[facility]ORYCLIA [id number] [address] MCV (RBC) [Entitic vol] 90.4 fL Normal 80.0-100.0 [facility] Comment on above: Order Comment: Speci men Type: BLOOD SPECIMEN Performed By: #### 5 8410-2 ####[facility]ATORYCLIA [id number] [address] Nucleated RBC (Bld) [#/Vol] 10*3/uL Normal <0.01 [facility] Comment on above: Order Comment: Speci men Type: BLOOD SPECIMEN Performed By: #### 5 8410-2 ####[facility]ORYCLIA [id number] [address] Platelet mean volume (Bld) [Entitic vol] 10.5 fL Normal 9.0-12.7 [facility] Comment on above: Order Comment: Speci men Type: BLOOD SPECIMEN Performed By: #### 5 8410-2 ####[facility]ATORYCLIA [id number] [address] Platelets (Bld) [#/Vol] 224 10*3/uL Normal 150-400 [facility] Comment on above: Order Comment: Speci men Type: BLOOD SPECIMEN Performed By: #### 5 8410-2 ####[facility] LABORATORYCLIA [id number] [address] RBC (Bld) [#/Vol] 4.38 10*6/uL Normal 4.20-6.00 [facility] Comment on above: Order Comment: Speci men Type: BLOOD SPECIMEN Performed By: #### 5 8410-2 ####[facility]ORATORYCLIA [id number] [address] OF [facility] WBC (Bld) [#/Vol] 9.66 10*3/uL Normal 3.70-11.00 [facility] Comment on above: Order Comment: Speci men Type: BLOOD SPECIMEN Performed By: #### 5 8410-2 ####[facility]ATORYCLIA [id number] [address] CONSULT PROGon 06-05-2021 CONSULT PROG Normal [facility] Gas and Carbon monoxide pane l (BldV)on 06-05-2021 Base excess Calc (BldV) [Moles/Vol] 1.8 mmol/L Normal 0-2 [facility] Comment on above: Order Comment: Speci men Type: VENOUS BLOOD SPECIMEN Performed By: #### 2 4344-4 ####[facility]ATORYCLIA [id number] [address] Body temperature 100.4 [degF] Normal [facility] Comment on above: Order Comment: Speci men Type: VENOUS BLOOD SPECIMEN Performed By: #### 2 4344-4 ####[facility]ATORYCLIA [id number] [address] CALCIUM IONIZED, PH CORRECTED 1.21 mmol/L Normal 1.08-1.30 [facility] Comment on above: Order Comment: Speci men Type: VENOUS BLOOD SPECIMEN Performed By: #### 2 4344-4 ####[facility]ATORYCLIA [id number] [address] Calcium.ionized (BldV) [Mass/Vol] 1.19 mmol/L Normal 1.08-1.30 [facility] Comment on above: Order Comment: Speci men Type: VENOUS BLOOD SPECIMEN Performed By: #### 2 4344-4 ####[facility]ATORYCLIA [id number] [address] Carboxyhemoglobin (BldV) [Mass fraction] 1.0 % Normal 0.0-2.0 [facility] Comment on above: Order Comment: Speci men Type: VENOUS BLOOD SPECIMEN Result Comment: Carb oxyhemoglobin Reference Range for Smokers: 2.0-8.0% Performed By: #### 2 4344-4 ####[facility]ATORYCLIA [id number] [address] CO2 (BldV) [Partial pressure] 41 mm[Hg] Low 42-55 [facility] Comment on above: Order Comment: Speci men Type: VENOUS BLOOD SPECIMEN Performed By: #### 2 4344-4 ####[facility]ATORYCLIA [id number] [address] CO2 [Moles/Vol] 23.4 mmol/L Low 25-29 [facility] Comment on above: Order Comment: Speci men Type: VENOUS BLOOD SPECIMEN Performed By: #### 2 4344-4 ####[facility]ATORYCLIA [id number] [address] CO2 adjusted to patient's actual temperature (BldV) [Partial pressure] 43 mmHg Normal 42-55 [facility] Comment on above: Order Comment: Speci men Type: VENOUS BLOOD SPECIMEN Performed By: #### 2 4344-4 ####[facility]ORYCLIA [id number] [address] Glucose [Mass/Vol] 101 mg/dL Normal 60-105 [facility] Comment on above: Order Comment: Speci men Type: VENOUS BLOOD SPECIMEN Performed By: #### 2 4344-4 ####[facility]ORYCLIA [id number] [place], [place] [id number] [place] [address] [place] HCO3 (Bld) [Moles/Vol] 26.0 mmol/L Normal 24-28 [facility] Comment on above: Order Comment: Speci men Type: VENOUS BLOOD SPECIMEN Performed By: #### 2 4344-4 ####[facility]ORATORYCLIA [id number] [address] [place] Hematocrit (Bld) [Volume fraction] 38.4 % Low 39.0-51.0 [facility] Comment on above: Order Comment: Speci men Type: VENOUS BLOOD SPECIMEN Performed By: #### 2 4344-4 ####[facility]ATORYCLIA [id number] [address] OF [facility] Hemoglobin (Bld) [Mass/Vol] 12.5 g/dL Low 13.0-17.0 [facility] Comment on above: Order Comment: Speci men Type: VENOUS BLOOD SPECIMEN Performed By: #### 2 4344-4 ####[facility]ATORYCLIA [id number] [address] STATES OF [facility] Methemoglobin (Bld) [Mass fraction] % Normal 0.0-1.5 [facility] Comment on above: Order Comment: Speci men Type: VENOUS BLOOD SPECIMEN Performed By: #### 2 4344-4 ####[facility]ORYCLIA [id number] [address] [place] O2 THERAPY Ventilator Normal [facility] Comment on above: Order Comment: Speci men Type: VENOUS BLOOD SPECIMEN Performed By: #### 2 4344-4 ####[facility]ATORYCLIA [id number] [address] Oxygen (BldV) [Partial pressure] 44 mm[Hg] Normal 35-45 [facility] Comment on above: Order Comment: Speci men Type: VENOUS BLOOD SPECIMEN Performed By: #### 2 4344-4 ####[facility] LABORATORYCLIA [id number] [address] Oxygen adjusted to patient's actual temperature (BldV) [Partial pressure] 46.8 mmHg High 35-45 [facility] Comment on above: Order Comment: Speci men Type: VENOUS BLOOD SPECIMEN Performed By: #### 2 4344-4 ####[facility]ORATORYCLIA [id number] [address] Oxygen saturation in Blood 76.5 % Normal 60-85 [facility] Comment on above: Order Comment: Speci men Type: VENOUS BLOOD SPECIMEN Performed By: #### 2 4344-4 ####[facility]ATORYCLIA [id number] [address] Oxyhemoglobin (BldV) [Mass fraction] 75 % Normal 60-85 [facility] Comment on above: Order Comment: Speci men Type: VENOUS BLOOD SPECIMEN Performed By: #### 2 4344-4 ####[facility]ATORYCLIA [id number] [address] pH (BldV) 7.42 [pH] Normal 7.32-7.42 [facility] Comment on above: Order Comment: Speci men Type: VENOUS BLOOD SPECIMEN Performed By: #### 2 4344-4 ####[facility]ORYCLIA [id number] [address] pH adjusted to patient's actual temperature (BldV) 7.40 Normal 7.32-7.42 [facility] Comment on above: Order Comment: Speci men Type: VENOUS BLOOD SPECIMEN Performed By: #### 2 4344-4 ####[facility]ORYCLIA [id number] [address] [place] Potassium [Moles/Vol] 3.7 mmol/L Normal 3.5-5.0 [facility] Comment on above: Order Comment: Speci men Type: VENOUS BLOOD SPECIMEN Performed By: #### 2 4344-4 ####[facility]ORYCLIA [id number] [address] Sodium [Moles/Vol] 141 mmol/L Normal 136-144 [facility] Comment on above: Order Comment: Speci men Type: VENOUS BLOOD SPECIMEN Performed By: #### 2 4344-4 ####[facility]ATORYCLIA [id number] [address] [place] Magnesium SerPl-mCncon 06-05 Magnesium [Mass/Vol] 2.3 mg/dL Normal 1.7-2.3 [facility] Comment on above: Order Comment: Speci men Type: BLOOD SPECIMEN Performed By: #### 1 9123-9, 52768-4, 2777-1 ####[facility]ATORYCLIA [id number] [address] Phosphate SerPl-mCncon 06-05 Phosphate [Mass/Vol] 2.9 mg/dL Normal 2.7-4.8 [facility] Comment on above: Order Comment: Speci men Type: BLOOD SPECIMEN Performed By: #### 1 9123-9, 66211-5, 2777-1 ####[facility]ORATORYCLIA [id number] [address] OF [facility] Vancomycin random [Mass/Vol] on 06-05-2021 Vancomycin [Mass/Vol] [...] 4 091-5 ####[facility]ORATORYCLIA [id number] [place] [address] [place] (1,3)-I-Y-JFJNTMjw 2 (1,3) B-D GLUCAN <31 Normal <60 [facility] Comment on above: Order Comment: Speci men Type: BLOOD SPECIMEN Performed By: #### B DGLUC ####[facility] LABCLIA [id number] [place] [address] [place] (1,3) B-D GLUCAN, QUAL Negative Normal NEGAT [facility] Comment on above: Order Comment: Speci men Type: BLOOD SPECIMEN Result Comment: Cert ain fungi, such as the genus Cryptococcus which produces very low levels of (1,3)-witf-I-xhlbpa, may not result in serum (1,3)-qtha-D-ufurgl sufficiently elevated so as to be detected by the assay. Infections with fungi of the order Mucorales such as Absidia, Mucor and Rhizopus which are not known to produce (1,3)-zfay-C-iweret, are also observed to yield low serum (1,3)-dbpj-Y-hsdfvr titers.In addition, the yeast phase of Blastomyces dermatitidis produces little (1,3)-wkuc-S-qkfeob and may not be detected by the assay. Performed By: #### B DGLUC ####[facility] LABCLIA [id number] sc[employer] [place] [address] [place] ALLIED HEALTHon 06-04-2021 ALLIED HEALTH Normal [facility] ALLIED HEALTH Normal [facility] ARTERIAL BLOOD GASESon 06-04 Base excess Calc (Bld) [Moles/Vol] 3 mmol/L High 0-2 [facility] Comment on above: Order Comment: Speci men Type: ARTERIAL BLOOD SPECIMEN Performed By: #### A LLBG ####[facility]ORATORYCLIA [id number] [address] [place] Body temperature 98.06 [degF] Normal [facility] Comment on above: Order Comment: Speci men Type: ARTERIAL BLOOD SPECIMEN Performed By: #### A LLBG ####[facility]ATORYCLIA [id number] [address] [place] CALCIUM IONIZED, PH CORRECTED 1.19 mmol/L Normal 1.08-1.30 [facility] Comment on above: Order Comment: Speci men Type: ARTERIAL BLOOD SPECIMEN Performed By: #### A LLBG ####[facility]ATORYCLIA [id number] [address] OF [facility] Calcium.ionized (BldV) [Mass/Vol] 1.14 mmol/L Normal 1.08-1.30 [facility] Comment on above: Order Comment: Speci men Type: ARTERIAL BLOOD SPECIMEN Performed By: #### A LLBG ####[facility]ATORYCLIA [id number] [address] OF [facility] Carboxyhemoglobin (BldA) [Mass fraction] 1.2 % Normal 0.0-2.0 [facility] Comment on above: Order Comment: Speci men Type: ARTERIAL BLOOD SPECIMEN Result Comment: Carb oxyhemoglobin Reference Range for Smokers: 2.0-8.0% Performed By: #### A LLBG ####[facility]ATORYCLIA [id number] [address] CO2 (Bld) [Partial pressure] 35 mm Hg Low 36-46 [facility] Comment on above: Order Comment: Speci men Type: ARTERIAL BLOOD SPECIMEN Performed By: #### A LLBG ####[facility]ATORYCLIA [id number] [address] CO2 [Moles/Vol] 23.2 mmol/L Normal 22-28 [facility] Comment on above: Order Comment: Speci men Type: ARTERIAL BLOOD SPECIMEN Performed By: #### A LLBG ####[facility]ATORYCLIA [id number] [address] CO2 adjusted to patient's actual temperature (Bld) [Partial pressure] 34 mmHg Low 36-46 [facility] Comment on above: Order Comment: Speci men Type: ARTERIAL BLOOD SPECIMEN Performed By: #### A LLBG ####[facility]ORYCLIA [id number] [address] Glucose [Mass/Vol] 115 mg/dL High 60-105 [facility] Comment on above: Order Comment: Speci men Type: ARTERIAL BLOOD SPECIMEN Performed By: #### A LLBG ####[facility]ORYCLIA [id number] [address] [place] HCO3 (Bld) [Moles/Vol] 26 mmol/L Normal 22-26 [facility] Comment on above: Order Comment: Speci men Type: ARTERIAL BLOOD SPECIMEN Performed By: #### A LLBG ####[facility]ORYCLIA [id number] [address] [place] Hematocrit (Bld) [Volume fraction] 35.3 % Low 39.0-51.0 [facility] Comment on above: Order Comment: Speci men Type: ARTERIAL BLOOD SPECIMEN Performed By: #### A LLBG ####[facility]ATORYCLIA [id number] [address] [place] Hemoglobin (Bld) [Mass/Vol] 11.5 g/dL Low 13.0-17.0 [facility] Comment on above: Order Comment: Speci men Type: ARTERIAL BLOOD SPECIMEN Performed By: #### A LLBG ####[facility]ATORYCLIA [id number] [address] Methemoglobin (Bld) [Mass fraction] % Normal 0.0-1.5 [facility] Comment on above: Order Comment: Speci men Type: ARTERIAL BLOOD SPECIMEN Performed By: #### A LLBG ####[facility]ATORYCLIA [id number] [address] OF [place] O2 THERAPY Ventilator Normal [facility] Comment on above: Order Comment: Speci men Type: ARTERIAL BLOOD SPECIMEN Performed By: #### A LLBG ####[facility]ORYCLIA [id number] [address] [place] Oxygen (Bld) [Partial pressure] 66 mm Hg Low 85-95 [facility] Comment on above: Order Comment: Speci men Type: ARTERIAL BLOOD SPECIMEN Performed By: #### A LLBG ####[facility]ORYCLIA [id number] [address] OF [place] Oxygen adjusted to patient's actual temperature (Bld) [Partial pressure] 64.3 mmHg Low 85-95 [facility] Comment on above: Order Comment: Speci men Type: ARTERIAL BLOOD SPECIMEN Performed By: #### A LLBG ####[facility]ATORYCLIA [id number] [address] OXYGEN SATURATION, ARTERIAL 95 % Normal 95-98 [facility] Comment on above: Order Comment: Speci men Type: ARTERIAL BLOOD SPECIMEN Performed By: #### A LLBG ####[facility]ORYCLIA [id number] [address] Oxyhemoglobin (BldA) [Mass fraction] 93 % Low 95-98 [facility] Comment on above: Order Comment: Speci men Type: ARTERIAL BLOOD SPECIMEN Performed By: #### A LLBG ####[facility]ATORYCLIA [id number] [address] pH (Bld) 7.49 [pH] High 7.35-7.45 [facility] Comment on above: Order Comment: Speci men Type: ARTERIAL BLOOD SPECIMEN Performed By: #### A LLBG ####[facility]ATORYCLIA [id number] [address] pH adjusted to patient's actual temperature (Bld) 7.49 High 7.35-7.45 [facility] Comment on above: Order Comment: Speci men Type: ARTERIAL BLOOD SPECIMEN Performed By: #### A LLBG ####[facility]ORYCLIA [id number] [address] Potassium [Moles/Vol] 2.8 mmol/L Low 3.5-5.0 [facility] Comment on above: Order Comment: Speci men Type: ARTERIAL BLOOD SPECIMEN Performed By: #### A LLBG ####[facility]ORYCLIA [id number] [address] Bas Metab 2000 Pnl SerPlon 0 06-04-2021 Sodium [Moles/Vol] 143 mmol/L Normal 136-144 [facility] Comment on above: Order Comment: Speci men Type: BLOOD SPECIMEN Performed By: #### 2 777-1, , ####[facility]ORYCLIA [id number] [address] Order Comment: Speci men Type: ARTERIAL BLOOD SPECIMEN Performed By: #### A LLBG ####[facility]ORYCLIA [id number] [address] Basic metabolic 2000 panelon 06-04-2021 Anion gap [Moles/Vol] 11 mmol/L Normal 9-18 [facility] Comment on above: Order Comment: Speci men Type: BLOOD SPECIMEN Performed By: #### 2 777-1, , ####[facility]ORYCLIA [id number] [address] Calcium [Mass/Vol] 8.5 mg/dL Normal 8.5-10.2 [facility] Comment on above: Order Comment: Speci men Type: BLOOD SPECIMEN Performed By: #### 2 777-1, , ####[facility]ORYCLIA [id number] [address] Chloride [Moles/Vol] 107 mmol/L High 97-105 [facility] Comment on above: Order Comment: Speci men Type: BLOOD SPECIMEN Performed By: #### 2 777-1, , ####[facility]ORYCLIA [id number] [address] STATES OF [facility] CO2 [Moles/Vol] 25 mmol/L Normal 22-30 [facility] Comment on above: Order Comment: Speci men Type: BLOOD SPECIMEN Performed By: #### 2 777-1, , ####[facility]ORYCLIA [id number] [address] [place] Creatinine [Mass/Vol] 0.77 mg/dL Normal 0.73-1.22 [facility] Comment on above: Order Comment: Speci men Type: BLOOD SPECIMEN Performed By: #### 2 777-1, 84194-4, ####[facility]ORATORYCLIA [id number] [place] [address] [place] GFR/1.73 sq M.predicted MDRD (S/P/Bld) [Vol rate/Area] mL/min/{1.73_m2} Normal [facility] Comment on above: Order Comment: [...] Performed By: #### 2 777-1, , ####[facility] [id number] [place] [id number] [place] Glucose [Mass/Vol] 107 mg/dL High 74-99 [facility] Comment on above: Order Comment: [facility] Type: BLOOD SPECIMEN Result Comment: The [place] [...] 1). Performed By: #### 2 777-1, , ####[facility]ORATORYCLIA [id number] [address] Potassium [Moles/Vol] 3.1 mmol/L Low 3.7-5.1 [facility] Comment on above: Order Comment: Speci men Type: BLOOD SPECIMEN Performed By: #### 2 777-1, , ####[facility]ATORYCLIA [id number] [address] Urea nitrogen [Mass/Vol] 19 mg/dL Normal 9-24 [facility] Comment on above: Order Comment: Speci men Type: BLOOD SPECIMEN Performed By: #### 2 777-1, , ####[facility]ATORYCLIA [id number] [address] CBC panel Auto (Bld)on 06-04 Erythrocyte distribution width (RBC) [Ratio] 15.8 % High 11.5-15.0 [facility] Comment on above: Order Comment: Speci men Type: BLOOD SPECIMEN Performed By: #### 5 8410-2 ####[facility]ATORYCLIA [id number] [address] Hematocrit (Bld) [Volume fraction] 36.9 % Low 39.0-51.0 [facility] Comment on above: Order Comment: Speci men Type: BLOOD SPECIMEN Performed By: #### 5 8410-2 ####[facility]ORYCLIA [id number] [address] Hemoglobin (Bld) [Mass/Vol] 11.2 g/dL Low 13.0-17.0 [facility] Comment on above: Order Comment: Speci men Type: BLOOD SPECIMEN Performed By: #### 5 8410-2 ####[facility]ORYCLIA [id number] [address] [facility] MCH (RBC) [Entitic mass] 27.3 pg Normal 26.0-34.0 [facility] Comment on above: Order Comment: Speci men Type: BLOOD SPECIMEN Performed By: #### 5 8410-2 ####[facility]ATORYCLIA [id number] [address] MCHC (RBC) [Mass/Vol] 30.4 g/dL Low 30.5-36.0 [facility] Comment on above: Order Comment: Speci men Type: BLOOD SPECIMEN Performed By: #### 5 8410-2 ####[facility]ORYCLIA [id number] [address] MCV (RBC) [Entitic vol] 89.8 fL Normal 80.0-100.0 [facility] Comment on above: Order Comment: Speci men Type: BLOOD SPECIMEN Performed By: #### 5 8410-2 ####[facility]ORYCLIA [id number] [address] Nucleated RBC (Bld) [#/Vol] 10*3/uL Normal <0.01 [facility] Comment on above: Order Comment: Speci men Type: BLOOD SPECIMEN Performed By: #### 5 8410-2 ####[facility]ORYCLIA [id number] [address] Platelet mean volume (Bld) [Entitic vol] 10.7 fL Normal 9.0-12.7 [facility] Comment on above: Order Comment: Speci men Type: BLOOD SPECIMEN Performed By: #### 5 8410-2 ####[facility]ORATORYCLIA [id number] [address] Platelets (Bld) [#/Vol] 174 10*3/uL Normal 150-400 [facility] Comment on above: Order Comment: Speci men Type: BLOOD SPECIMEN Performed By: #### 5 8410-2 ####[facility]ORATORYCLIA [id number] [address] RBC (Bld) [#/Vol] 4.11 10*6/uL Low 4.20-6.00 [facility] Comment on above: Order Comment: Speci men Type: BLOOD SPECIMEN Performed By: #### 5 8410-2 ####[facility] LABORATORYCLIA [id number] [address] [facility] WBC (Bld) [#/Vol] 8.29 10*3/uL Normal 3.70-11.00 [facility] Comment on above: Order Comment: Speci men Type: BLOOD SPECIMEN Performed By: #### 5 8410-2 ####[facility]ORATORYCLIA [id number] [address] CONSULT PROGon 06-04-2021 CONSULT PROG Normal [facility] CT BRAIN WO IVCONon 06-04-19 CT BRAIN WO IVCON Normal [facility] CT CHEST W IVCON PEon 2021 CT CHEST W IVCON PE Normal [facility] Magnesium SerPl-mCncon 06-04 Magnesium [Mass/Vol] 2.2 mg/dL Normal 1.7-2.3 [facility] Comment on above: Order Comment: Speci men Type: BLOOD SPECIMEN Performed By: #### 2 777-1, 92348-3, 66528-0 ####[facility] LABORATORYCLIA [id number] [address] NT-proBNP SerPl-mCncon 06-04 Natriuretic peptide.B prohormone N-Terminal [Mass/Vol] 229 pg/mL High <125 [facility] Comment on above: Order Comment: Speci men Type: BLOOD SPECIMEN Performed By: #### 3 3762-6, 4091-5 ####[facility]ORATORYCLIA [id number] [address] Phosphate SerPl-mCncon 06-04 Phosphate [Mass/Vol] 2.0 mg/dL Low 2.7-4.8 [facility] Comment on above: Order Comment: Speci men Type: BLOOD SPECIMEN Performed By: #### 2 777-1, 19186-5, 06981-4 ####[facility]ORATORYCLIA [id number] [address] Vancomycin random [Mass/Vol] on 06-04-2021 Vancomycin [...] 3762-6, 4091-5 ####[facility]ORATORYCLIA [id number] [address] XR ABDOMEN 1V SUPINEon 06-04 XR ABDOMEN 1V SUPINE Normal [facility] ALLIED HEALTHon 06-03-2021 ALLIED HEALTH Normal [facility] ARTERIAL BLOOD GASESon 06-03 Base excess Calc (Bld) [Moles/Vol] 5 mmol/L High 0-2 [facility] Comment on above: Order Comment: Speci men Type: ARTERIAL BLOOD SPECIMEN Performed By: #### A LLBG ####[facility]ORATORYCLIA [id number] [address] Body temperature 99.5 [degF] Normal [facility] Comment on above: Order Comment: Speci men Type: ARTERIAL BLOOD SPECIMEN Performed By: #### A LLBG ####[facility]ORATORYCLIA [id number] [address] CALCIUM IONIZED, PH CORRECTED 1.18 mmol/L Normal 1.08-1.30 [facility] Comment on above: Order Comment: Speci men Type: ARTERIAL BLOOD SPECIMEN Performed By: #### A LLBG ####[facility]ORATORYCLIA [id number] [address] Calcium.ionized (BldV) [Mass/Vol] 1.16 mmol/L Normal 1.08-1.30 [facility] Comment on above: Order Comment: Speci men Type: ARTERIAL BLOOD SPECIMEN Performed By: #### A LLBG ####[facility]ATORYCLIA [id number] [address] Carboxyhemoglobin (BldA) [Mass fraction] 1.2 % Normal 0.0-2.0 [facility] Comment on above: Order Comment: Speci men Type: ARTERIAL BLOOD SPECIMEN Result Comment: Carb oxyhemoglobin Reference Range for Smokers: 2.0-8.0% Performed By: #### A LLBG ####[facility]ATORYCLIA [id number] [address] CO2 (Bld) [Partial pressure] 45 mm Hg Normal 36-46 [facility] Comment on above: Order Comment: Speci men Type: ARTERIAL BLOOD SPECIMEN Performed By: #### A LLBG ####[facility]ORATORYCLIA [id number] [address] CO2 [Moles/Vol] 26.9 mmol/L Normal 22-28 [facility] Comment on above: Order Comment: Speci men Type: ARTERIAL BLOOD SPECIMEN Performed By: #### A LLBG ####[facility]ORATORYCLIA [id number] [address] CO2 adjusted to patient's actual temperature (Bld) [Partial pressure] 47 mmHg High 36-46 [facility] Comment on above: Order Comment: Speci men Type: ARTERIAL BLOOD SPECIMEN Performed By: #### A LLBG ####[facility]ORATORYCLIA [id number] [address] [place] Glucose [Mass/Vol] 141 mg/dL High 60-105 [facility] Comment on above: Order Comment: Speci men Type: ARTERIAL BLOOD SPECIMEN Performed By: #### A LLBG ####[facility]ATORYCLIA [id number] [address] HCO3 (Bld) [Moles/Vol] 30 mmol/L High 22-26 [facility] Comment on above: Order Comment: Speci men Type: ARTERIAL BLOOD SPECIMEN Performed By: #### A LLBG ####[facility]ORATORYCLIA [id number] [address] Hematocrit (Bld) [Volume fraction] 35.8 % Low 39.0-51.0 [facility] Comment on above: Order Comment: Speci men Type: ARTERIAL BLOOD SPECIMEN Performed By: #### A LLBG ####[facility]ORATORYCLIA [id number] [address] Hemoglobin (Bld) [Mass/Vol] 11.6 g/dL Low 13.0-17.0 [facility] Comment on above: Order Comment: Speci men Type: ARTERIAL BLOOD SPECIMEN Performed By: #### A LLBG ####[facility]ORATORYCLIA [id number] [address] Methemoglobin (Bld) [Mass fraction] % Normal 0.0-1.5 [facility] Comment on above: Order Comment: Speci men Type: ARTERIAL BLOOD SPECIMEN Performed By: #### A LLBG ####[facility]ORATORYCLIA [id number] [address] O2 THERAPY Ventilator Normal [facility] Comment on above: Order Comment: Speci men Type: ARTERIAL BLOOD SPECIMEN Performed By: #### A LLBG ####[facility]ORATORYCLIA [id number] [address] Oxygen (Bld) [Partial pressure] 69 mm Hg Low 85-95 [facility] Comment on above: Order Comment: Speci men Type: ARTERIAL BLOOD SPECIMEN Performed By: #### A LLBG ####[facility]ATORYCLIA [id number] [address] Oxygen adjusted to patient's actual temperature (Bld) [Partial pressure] 70.8 mmHg Low 85-95 [facility] Comment on above: Order Comment: Speci men Type: ARTERIAL BLOOD SPECIMEN Performed By: #### A LLBG ####[facility]ORATORYCLIA [id number] [address] OXYGEN SATURATION, ARTERIAL 94 % Low 95-98 [facility] Comment on above: Order Comment: Speci men Type: ARTERIAL BLOOD SPECIMEN Performed By: #### A LLBG ####[facility]ORATORYCLIA [id number] [address] Oxyhemoglobin (BldA) [Mass fraction] 93 % Low 95-98 [facility] Comment on above: Order Comment: Speci men Type: ARTERIAL BLOOD SPECIMEN Performed By: #### A LLBG ####[facility]ORATORYCLIA [id number] [address] [place] pH (Bld) 7.43 [pH] Normal 7.35-7.45 [facility] Comment on above: Order Comment: Speci men Type: ARTERIAL BLOOD SPECIMEN Performed By: #### A LLBG ####[facility]ORATORYCLIA [id number] [address] pH adjusted to patient's actual temperature (Bld) 7.43 Normal 7.35-7.45 [facility] Comment on above: Order Comment: Speci men Type: ARTERIAL BLOOD SPECIMEN Performed By: #### A LLBG ####[facility]ORATORYCLIA [id number] [address] STATES OF [facility] Potassium [Moles/Vol] 3.1 mmol/L Low 3.5-5.0 [facility] Comment on above: Order Comment: Speci men Type: ARTERIAL BLOOD SPECIMEN Performed By: #### A LLBG ####[facility]ORATORYCLIA [id number] [address] [place] Sodium [Moles/Vol] 145 mmol/L High 136-144 [facility] Comment on above: Order Comment: Speci men Type: ARTERIAL BLOOD SPECIMEN Performed By: #### A LLBG ####[facility]ORATORYCLIA [id number] [address] [place] ASPERGILLUS GALACTOMANNAN SE RUMon 06-03-2021 Galactomannan Ag [place] Ql Negative Normal NEGAT [facility] Comment on above: Order Comment: Speci [...] Performed By: #### A SGALS ####[facility] LABCLIA [id number] [place] [facility] [address] OF [facility] Galactomannan Ag IA Qn <0.50 Normal [facility] Comment on above: Order Comment: Speci men Type: BLOOD SPECIMEN Result Comment: Inde x Values are Interpreted as Follows:Negative specimens <0.50Positive specimens >=0.50 Performed By: #### A SGALS ####[facility] LABCLIA [id number] [facility] [place] [id number] [facility] Basic metabolic 2000 panelon 06-03-2021 Anion gap [Moles/Vol] 8 mmol/L Low 9-18 [facility] Comment on above: Order Comment: Speci men Type: BLOOD SPECIMEN Performed By: #### 1 9123-9, 2777-1, 01431-0 ####[facility]ORATORYCLIA [id number] [address] STATES OF [facility] Calcium [Mass/Vol] 8.0 mg/dL Low 8.5-10.2 [facility] Comment on above: Order Comment: Speci men Type: BLOOD SPECIMEN Performed By: #### 1 9123-9, 2777-1, 82315-1 ####[facility]ORATORYCLIA [id number] [address] STATES OF [facility] Chloride [Moles/Vol] 110 mmol/L High 97-105 [facility] Comment on above: Order Comment: Speci men Type: BLOOD SPECIMEN Performed By: #### 1 9123-9, 2777-1, 19359-5 ####[facility]ORATORYCLIA [id number] [address] CO2 [Moles/Vol] 28 mmol/L Normal 22-30 [facility] Comment on above: Order Comment: Speci men Type: BLOOD SPECIMEN Performed By: #### 1 9123-9, 2777-1, 21293-8 ####[facility]ORATORYCLIA [id number] [address] STATES OF [facility] Creatinine [Mass/Vol] 0.75 mg/dL Normal 0.73-1.22 [facility] Comment on above: Order Comment: Speci men Type: BLOOD SPECIMEN Performed By: #### 1 9123-9, 2777-, 47821-4 ####[facility]ORATORYCLIA [id number] [address] STATES [facility] GFR/1.73 sq M.predicted MDRD (S/P/Bld) [Vol rate/Area] mL/min/{1.73_m2} Normal [facility] Comment on above: Order Comment: [...] GFR. Performed By: #### 1 9123-9, 2777-1, 54169-6 ####[facility]ORATORYCLIA [id number] [address] [place] Glucose [Mass/Vol] 141 mg/dL High 74-99 [facility] Comment on above: Order Comment: [...] 1). Performed By: #### 1 9123-9, 2777-, 45554-8 ####[facility]ORATORYCLIA [id number] [address] STATES OF [facility] Potassium [Moles/Vol] 3.3 mmol/L Low 3.7-5.1 [facility] Comment on above: Order Comment: Speci men Type: BLOOD SPECIMEN Performed By: #### 1 9123-9, 2777, 41519-5 ####[facility]ORATORYCLIA [id number] [address] Sodium [Moles/Vol] 146 mmol/L High 136-144 [facility] Comment on above: Order Comment: Speci men Type: BLOOD SPECIMEN Performed By: #### 1 9123-9, 2777, 52190-1 ####[facility]ORATORYCLIA [id number] [address] Urea nitrogen [Mass/Vol] 10 mg/dL Normal 9-24 [facility] Comment on above: Order Comment: Speci men Type: BLOOD SPECIMEN Performed By: #### 1 9123-9, 2777-, 63411-4 ####[facility]ORATORYCLIA [id number] [address] OF [facility] CASE MANAGEMon 06-03-2021 CASE MANAGEM Normal [facility] CBC panel Auto (Bld)on 06-03 Erythrocyte distribution width (RBC) [Ratio] 15.6 % High 11.5-15.0 [facility] Comment on above: Order Comment: Speci men Type: BLOOD SPECIMEN Performed By: #### 5 8410-2 ####[facility]ORATORYCLIA [id number] [address] Hematocrit (Bld) [Volume fraction] 36.9 % Low 39.0-51.0 [facility] Comment on above: Order Comment: Speci men Type: BLOOD SPECIMEN Performed By: #### 5 8410-2 ####[facility]ORATORYCLIA [id number] [address] Hemoglobin (Bld) [Mass/Vol] 11.1 g/dL Low 13.0-17.0 [facility] Comment on above: Order Comment: Speci men Type: BLOOD SPECIMEN Performed By: #### 5 8410-2 ####[facility]ORATORYCLIA [id number] [address] MCH (RBC) [Entitic mass] 27.0 pg Normal 26.0-34.0 [facility] Comment on above: Order Comment: Speci men Type: BLOOD SPECIMEN Performed By: #### 5 8410-2 ####[facility]ORATORYCLIA [id number] [address] MCHC (RBC) [Mass/Vol] 30.1 g/dL Low 30.5-36.0 [facility] Comment on above: Order Comment: Speci men Type: BLOOD SPECIMEN Performed By: #### 5 8410-2 ####[facility]ORATORYCLIA [id number] [address] MCV (RBC) [Entitic vol] 89.8 fL Normal 80.0-100.0 [facility] Comment on above: Order Comment: Speci men Type: BLOOD SPECIMEN Performed By: #### 5 8410-2 ####[facility]ORATORYCLIA [id number] [address] Nucleated RBC (Bld) [#/Vol] 10*3/uL Normal <0.01 [facility] Comment on above: Order Comment: Speci men Type: BLOOD SPECIMEN Performed By: #### 5 8410-2 ####[facility]ATORYCLIA [id number] [address] Platelet mean volume (Bld) [Entitic vol] 10.5 fL Normal 9.0-12.7 [facility] Comment on above: Order Comment: Speci men Type: BLOOD SPECIMEN Performed By: #### 5 8410-2 ####[facility]ORATORYCLIA [id number] [address] [place] Platelets (Bld) [#/Vol] 196 10*3/uL Normal 150-400 [facility] Comment on above: Order Comment: Speci men Type: BLOOD SPECIMEN Performed By: #### 5 8410-2 ####[facility]ORATORYCLIA [id number] [address] RBC (Bld) [#/Vol] 4.11 10*6/uL Low 4.20-6.00 [facility] Comment on above: Order Comment: Speci men Type: BLOOD SPECIMEN Performed By: #### 5 8410-2 ####[facility]ORATORYCLIA [id number] [address] WBC (Bld) [#/Vol] 8.18 10*3/uL Normal 3.70-11.00 [facility] Comment on above: Order Comment: Speci men Type: BLOOD SPECIMEN Performed By: #### 5 8410-2 ####[facility]ORATORYCLIA [id number] [address] OF [facility] CONSULTon 06-03-2021 CONSULT Normal [facility] CONSULT PROGon 06-03-2021 CONSULT PROG Normal [facility] Gas and Carbon monoxide pane l (BldV)on 06-03-2021 Base excess Calc (BldV) [Moles/Vol] 1.4 mmol/L Normal 0-2 [facility] Comment on above: Order Comment: Speci men Type: VENOUS BLOOD SPECIMEN Performed By: #### 2 4344-4 ####[facility]ORATORYCLIA [id number] [place] [address] Body temperature 98.42 [degF] Normal [facility] Comment on above: Order Comment: Speci men Type: VENOUS BLOOD SPECIMEN Performed By: #### 2 4344-4 ####[facility]ORATORYCLIA [id number] [address] CALCIUM IONIZED, PH CORRECTED 1.09 mmol/L Normal 1.08-1.30 [facility] Comment on above: Order Comment: Speci men Type: VENOUS BLOOD SPECIMEN Performed By: #### 2 4344-4 ####[facility]ATORYCLIA [id number] [address] Calcium.ionized (BldV) [Mass/Vol] 1.12 mmol/L Normal 1.08-1.30 [facility] Comment on above: Order Comment: Speci men Type: VENOUS BLOOD SPECIMEN Performed By: #### 2 4344-4 ####[facility]ATORYCLIA [id number] [address] Carboxyhemoglobin (BldV) [Mass fraction] 1.7 % Normal 0.0-2.0 [facility] Comment on above: Order Comment: Speci men Type: VENOUS BLOOD SPECIMEN Result Comment: Carb oxyhemoglobin Reference Range for Smokers: 2.0-8.0% Performed By: #### 2 4344-4 ####[facility]ATORYCLIA [id number] [address] CO2 (BldV) [Partial pressure] 50 mm[Hg] Normal 42-55 [facility] Comment on above: Order Comment: Speci men Type: VENOUS BLOOD SPECIMEN Performed By: #### 2 4344-4 ####[facility]ORATORYCLIA [id number] [address] CO2 [Moles/Vol] 24.9 mmol/L Low 25-29 [facility] Comment on above: Order Comment: Speci men Type: VENOUS BLOOD SPECIMEN Performed By: #### 2 4344-4 ####[facility]ATORYCLIA [id number] [address] CO2 adjusted to patient's actual temperature (BldV) [Partial pressure] 50 mmHg Normal 42-55 [facility] Comment on above: Order Comment: Speci men Type: VENOUS BLOOD SPECIMEN Performed By: #### 2 4344-4 ####[facility]ORATORYCLIA [id number] [place], [place] [address] [place] [address] [place] FIO2 30 % Normal [facility] Comment on above: Order Comment: Speci men Type: VENOUS BLOOD SPECIMEN Performed By: #### 2 4344-4 ####[facility]ORATORYCLIA [id number] [address] Glucose [Mass/Vol] 191 mg/dL High 60-105 [facility] Comment on above: Order Comment: Speci men Type: VENOUS BLOOD SPECIMEN Performed By: #### 2 4344-4 ####[facility]ATORYCLIA [id number] [address] HCO3 (Bld) [Moles/Vol] 27.1 mmol/L Normal 24-28 [facility] Comment on above: Order Comment: Speci men Type: VENOUS BLOOD SPECIMEN Performed By: #### 2 4344-4 ####[facility]ORYCLIA [id number] [address] Hematocrit (Bld) [Volume fraction] 36.2 % Low 39.0-51.0 [facility] Comment on above: Order Comment: Speci men Type: VENOUS BLOOD SPECIMEN Performed By: #### 2 4344-4 ####[facility]ATORYCLIA [id number] [address] Hemoglobin (Bld) [Mass/Vol] 11.8 g/dL Low 13.0-17.0 [facility] Comment on above: Order Comment: Speci men Type: VENOUS BLOOD SPECIMEN Performed By: #### 2 4344-4 ####[facility]ATORYCLIA [id number] [address] INHALED TIDAL VOLUME (ML) 530 Normal [facility] Comment on above: Order Comment: Speci men Type: VENOUS BLOOD SPECIMEN Performed By: #### 2 4344-4 ####[facility]ORATORYCLIA [id number] [place] [address] [facility] [place] Methemoglobin (Bld) [Mass fraction] % Normal 0.0-1.5 [facility] Comment on above: Order Comment: Speci men Type: VENOUS BLOOD SPECIMEN Performed By: #### 2 4344-4 ####[facility]ATORYCLIA [id number] [place] [address] [facility] [place] O2 THERAPY Ventilator Normal [facility] Comment on above: Order Comment: Speci men Type: VENOUS BLOOD SPECIMEN Performed By: #### 2 4344-4 ####[facility]ATORYCLIA [id number] [place], [place] [address] [place] [address] [place] Oxygen (BldV) [Partial pressure] 69 mm[Hg] High 35-45 [facility] Comment on above: Order Comment: Speci men Type: VENOUS BLOOD SPECIMEN Performed By: #### 2 4344-4 ####[facility]ATORYCLIA [id number] [place], [place] [address] [place] [address] [place] Oxygen adjusted to patient's actual temperature (BldV) [Partial pressure] 68.8 mmHg High 35-45 [facility] Comment on above: Order Comment: Speci men Type: VENOUS BLOOD SPECIMEN Performed By: #### 2 4344-4 ####[facility]ATORYCLIA [id number] [place], [place] [address] [place] [address] [place] Oxygen saturation in Blood 92.4 % High 60-85 [facility] Comment on above: Order Comment: Speci men Type: VENOUS BLOOD SPECIMEN Performed By: #### 2 4344-4 ####[facility]ATORYCLIA [id number] [place], [place] [address] [place] [address] [place] Oxyhemoglobin (BldV) [Mass fraction] 90 % High 60-85 [facility] Comment on above: Order Comment: Speci men Type: VENOUS BLOOD SPECIMEN Performed By: #### 2 4344-4 ####[facility]ORYCLIA [id number] [address] PEEP/CPAP 8 cmH2O Normal [facility] Comment on above: Order Comment: Speci men Type: VENOUS BLOOD SPECIMEN Performed By: #### 2 4344-4 ####[facility]ATORYCLIA [id number] [address] pH (BldV) 7.35 [pH] Normal 7.32-7.42 [facility] Comment on above: Order Comment: Speci men Type: VENOUS BLOOD SPECIMEN Performed By: #### 2 4344-4 ####[facility]ORYCLIA [id number] [address] pH adjusted to patient's actual temperature (BldV) 7.35 Normal 7.32-7.42 [facility] Comment on above: Order Comment: Speci men Type: VENOUS BLOOD SPECIMEN Performed By: #### 2 4344-4 ####[facility]ORYCLIA [id number] [address] Potassium [Moles/Vol] 3.6 mmol/L Normal 3.5-5.0 [facility] Comment on above: Order Comment: Speci men Type: VENOUS BLOOD SPECIMEN Performed By: #### 2 4344-4 ####[facility]ATORYCLIA [id number] [address] SET VENTILATOR RESPIRATORY RATE (BPM) 18 BPM Normal [facility] Comment on above: Order Comment: Speci men Type: VENOUS BLOOD SPECIMEN Performed By: #### 2 4344-4 ####[facility]ATORYCLIA [id number] [address] Sodium [Moles/Vol] 141 mmol/L Normal 136-144 [facility] Comment on above: Order Comment: Speci men Type: VENOUS BLOOD SPECIMEN Performed By: #### 2 4344-4 ####[facility]ATORYCLIA [id number] [address] HIV 1+2 Ab IA Qlon 01-28-202 2 HIV 1 and 2 Ab IA.rapid Nom Normal [facility] Comment on above: Order Comment: Speci men Type: BLOOD SPECIMEN Result Comment: Test not indicated. Performed By: #### 3 1201-7, TOXMG ####[facility]ORATORYCLIA [id number] [place] [address] [place] HIV 1+2 Ab+HIV1 p24 Ag IA Ql Non-Reactive Normal Nonreactive [facility] Comment on above: Order Comment: Speci men Type: BLOOD SPECIMEN Result Comment: [place] Rev. Code 3701.243(E): This information has been [...] 1201-7, TOXMG ####[facility]ORATORYCLIA [id number] [address] HIVINT Normal [facility] Comment on above: Order Comment: Speci men Type: BLOOD SPECIMEN Result Comment: No e vidence of HIV-1 or HIV-2 infection. Should recent infection be suspected, repeat testing may be considered 2-3 weeks after this draw. Performed By: #### 3 1201-7, TOXMG ####[facility]ORATORYCLIA [id number] [address] [place] Magnesium SerPl-mCncon 06-03 Magnesium [Mass/Vol] 1.9 mg/dL Normal 1.7-2.3 [facility] Comment on above: Order Comment: Speci men Type: BLOOD SPECIMEN Performed By: #### 1 9123-9, 2777-1, 19626-4 ####[facility]ORATORYCLIA [id number] [place] [address] [place] NUTRITIONon 06-03-2021 NUTRITION Normal [facility] Phosphate SerPl-mCncon 06-03 Phosphate [Mass/Vol] 1.9 mg/dL Low 2.7-4.8 [facility] Comment on above: Order Comment: Speci men Type: BLOOD SPECIMEN Performed By: #### 1 9123-9, 2777-1, 64930-0 ####[facility]ORATORYCLIA [id number] [address] TOXOPLASMOSIS IGM AND IGG AB on 06-03-2021 TOXO IGG QUAL Negative Normal Negative [facility] Comment on above: Order Comment: Speci men Type: BLOOD SPECIMEN Result Comment: No s erological evidence of past exposure to Toxoplasma gondii. Cannot exclude recent infection if the specimen collected within 3-4 weeks after infection.Negative <6.4 IU/mLEquivocal 6.4-9.9 IU/mLPositive >=10.0 IU/mL Performed By: #### 3 1201-7, TOXMG ####[facility]ORATORYCLIA [id number] [address] TOXO IGM QUAL Negative Normal Negative [facility] Comment on above: Order Comment: Speci men Type: BLOOD SPECIMEN Result Comment: No s erological evidence of recent exposure to Toxoplasma gondii.Negative <0.9 IndexEquivocal 0.9-0.99 IndexPositive >=1.0 Index Performed By: #### 3 1201-7, TOXMG ####[facility]ORATORYCLIA [id number] [address] [place] US DVT LOWER BILon US DVT LOWER RAINER Normal [facility] XR CHEST 1V FRONTALon 2021 XR CHEST 1V FRONTAL Normal [facility] ARTERIAL BLOOD GASESon 06-02 Base excess Calc (Bld) [Moles/Vol] 2 mmol/L Normal 0-2 [facility] Comment on above: Order Comment: Speci men Type: ARTERIAL BLOOD SPECIMEN Performed By: #### A LLBG ####[facility]ORATORYCLIA [id number] [address] Body temperature 99.32 [degF] Normal [facility] Comment on above: Order Comment: Speci men Type: ARTERIAL BLOOD SPECIMEN Performed By: #### A LLBG ####[facility]ORATORYCLIA [id number] [address] CALCIUM IONIZED, PH CORRECTED 1.15 mmol/L Normal 1.08-1.30 [facility] Comment on above: Order Comment: Speci men Type: ARTERIAL BLOOD SPECIMEN Performed By: #### A LLBG ####[facility]ATORYCLIA [id number] [address] Calcium.ionized (BldV) [Mass/Vol] 1.13 mmol/L Normal 1.08-1.30 [facility] Comment on above: Order Comment: Speci men Type: ARTERIAL BLOOD SPECIMEN Performed By: #### A LLBG ####[facility]ORATORYCLIA [id number] [address] Carboxyhemoglobin (BldA) [Mass fraction] 1.4 % Normal 0.0-2.0 [facility] Comment on above: Order Comment: Speci men Type: ARTERIAL BLOOD SPECIMEN Result Comment: Carb oxyhemoglobin Reference Range for Smokers: 2.0-8.0% Performed By: #### A LLBG ####[facility]ORATORYCLIA [id number] [address] CO2 (Bld) [Partial pressure] 39 mm Hg Normal 36-46 [facility] Comment on above: Order Comment: Speci men Type: ARTERIAL BLOOD SPECIMEN Performed By: #### A LLBG ####[facility] LABORATORYCLIA [id number] [address] [place] CO2 [Moles/Vol] 23.4 mmol/L Normal 22-28 [facility] Comment on above: Order Comment: Speci men Type: ARTERIAL BLOOD SPECIMEN Performed By: #### A LLBG ####[facility]ORATORYCLIA [id number] [address] CO2 adjusted to patient's actual temperature (Bld) [Partial pressure] 40 mmHg Normal 36-46 [facility] Comment on above: Order Comment: Speci men Type: ARTERIAL BLOOD SPECIMEN Performed By: #### A LLBG ####[facility]ORATORYCLIA [id number] [address] Glucose [Mass/Vol] 156 mg/dL High 60-105 [facility] Comment on above: Order Comment: Speci men Type: ARTERIAL BLOOD SPECIMEN Performed By: #### A LLBG ####[facility]ORATORYCLIA [id number] [address] HCO3 (Bld) [Moles/Vol] 26 mmol/L Normal 22-26 [facility] Comment on above: Order Comment: Speci men Type: ARTERIAL BLOOD SPECIMEN Performed By: #### A LLBG ####[facility]ORATORYCLIA [id number] [address] Hematocrit (Bld) [Volume fraction] 33.9 % Low 39.0-51.0 [facility] Comment on above: Order Comment: Speci men Type: ARTERIAL BLOOD SPECIMEN Performed By: #### A LLBG ####[facility] LABORATORYCLIA [id number] [address] OF [facility] Hemoglobin (Bld) [Mass/Vol] 11.0 g/dL Low 13.0-17.0 [facility] Comment on above: Order Comment: Speci men Type: ARTERIAL BLOOD SPECIMEN Performed By: #### A LLBG ####[facility]ORATORYCLIA [id number] [address] Methemoglobin (Bld) [Mass fraction] % Normal 0.0-1.5 [facility] Comment on above: Order Comment: Speci men Type: ARTERIAL BLOOD SPECIMEN Performed By: #### A LLBG ####[facility]ORATORYCLIA [id number] [address] O2 THERAPY Ventilator Normal [facility] Comment on above: Order Comment: Speci men Type: ARTERIAL BLOOD SPECIMEN Performed By: #### A LLBG ####[facility]ORATORYCLIA [id number] [place], [place] [address] [place] [address] Oxygen (Bld) [Partial pressure] 70 mm Hg Low 85-95 [facility] Comment on above: Order Comment: Speci men Type: ARTERIAL BLOOD SPECIMEN Performed By: #### A LLBG ####[facility]ORATORYCLIA [id number] [address] Oxygen adjusted to patient's actual temperature (Bld) [Partial pressure] 72.2 mmHg Low 85-95 [facility] Comment on above: Order Comment: Speci men Type: ARTERIAL BLOOD SPECIMEN Performed By: #### A LLBG ####[facility] LABORATORYCLIA [id number] [address] OXYGEN SATURATION, ARTERIAL 96 % Normal 95-98 [facility] Comment on above: Order Comment: Speci men Type: ARTERIAL BLOOD SPECIMEN Performed By: #### A LLBG ####[facility] LABORATORYCLIA [id number] [address] Oxyhemoglobin (BldA) [Mass fraction] 94 % Low 95-98 [facility] Comment on above: Order Comment: Speci men Type: ARTERIAL BLOOD SPECIMEN Performed By: #### A LLBG ####[facility]ORATORYCLIA [id number] [address] [place] pH (Bld) 7.43 [pH] Normal 7.35-7.45 [facility] Comment on above: Order Comment: Speci men Type: ARTERIAL BLOOD SPECIMEN Performed By: #### A LLBG ####[facility]ORATORYCLIA [id number] [address] pH adjusted to patient's actual temperature (Bld) 7.42 Normal 7.35-7.45 [facility] Comment on above: Order Comment: Speci men Type: ARTERIAL BLOOD SPECIMEN Performed By: #### A LLBG ####[facility]ORATORYCLIA [id number] [address] [place] Potassium [Moles/Vol] 2.6 mmol/L Low 3.5-5.0 [facility] Comment on above: Order Comment: Speci men Type: ARTERIAL BLOOD SPECIMEN Performed By: #### A LLBG ####[facility] LABORATORYCLIA [id number] [address] STATES OF [facility] Sodium [Moles/Vol] 142 mmol/L Normal 136-144 [facility] Comment on above: Order Comment: Speci men Type: ARTERIAL BLOOD SPECIMEN Performed By: #### A LLBG ####[facility] LABORATORYCLIA [id number] [address] [place] Ammonia Plas-sCncon 06-02-19 22 Ammonia (P) [Moles/Vol] 20 umol/L Normal 16-60 [facility] Comment on above: Order Comment: Speci men Type: BLOOD SPECIMEN Performed By: #### 1 6362-6 ####[facility] LABORATORYCLIA [id number] [address] [place] Bacteria CSF Culton 06-02-19 22 Bacteria identified Cx Nom (CSF) CULTURE, CSF: No growth 14 days GRAM STAIN: No organisms seen Rare Polymorphonuclear leukocytes Gram stain performed on cytospun specimen. Normal [facility] Comment on above: Performed By: #### 6 06-4 ####[facility] LABORATORYCLIA [id number] [address] [place] Basic metabolic 2000 panelon 06-02-2021 Anion gap [Moles/Vol] 10 mmol/L Normal 9-18 [facility] Comment on above: Order Comment: Speci men Type: BLOOD SPECIMEN Performed By: #### 2 4321-2, , 2776-05 ####[facility] LABORATORYCLIA [id number] [address] STATES OF [facility] Calcium [Mass/Vol] 8.1 mg/dL Low 8.5-10.2 [facility] Comment on above: Order Comment: Speci men Type: BLOOD SPECIMEN Performed By: #### 2 4321-2, , 2776 ####[facility] LABORATORYCLIA [id number] [place], [place] [id number] [place] [address] [place] Chloride [Moles/Vol] 108 mmol/L High 97-105 [facility] Comment on above: Order Comment: Speci men Type: BLOOD SPECIMEN Performed By: #### 2 4321-2, , 2776-05 ####[facility] LABORATORYCLIA [id number] [address] [place] CO2 [Moles/Vol] 24 mmol/L Normal 22-30 [facility] Comment on above: Order Comment: Speci men Type: BLOOD SPECIMEN Performed By: #### 2 1-2, , 2776-05 ####[facility] LABORATORYCLIA [id number] [address] [place] Creatinine [Mass/Vol] 0.78 mg/dL Normal 0.73-1.22 [facility] Comment on above: Order Comment: Speci men Type: BLOOD SPECIMEN Performed By: #### 2 1-2, , 2776-05 ####[facility] LABORATORYCLIA [id number] [address] [place] GFR/1.73 sq M.predicted MDRD (S/P/Bld) [Vol rate/Area] mL/min/{1.73_m2} Normal [facility] Comment on above: Order Comment: [...] , 2776-05 ####[facility] LABORATORYCLIA [id number] [place] [address] [place] Glucose [Mass/Vol] 162 mg/dL High 74-99 [facility] Comment on above: Order Comment: [...] , 2776-05 ####[facility] LABORATORYCLIA [id number] [address] [place] Potassium [Moles/Vol] 2.7 mmol/L Low 3.7-5.1 [facility] Comment on above: Order Comment: Speci men Type: BLOOD SPECIMEN Performed By: #### 2 1-2, , 2776-05 ####[facility] LABORATORYCLIA [id number] [address] [place] Sodium [Moles/Vol] 142 mmol/L Normal 136-144 [facility] Comment on above: Order Comment: Speci men Type: BLOOD SPECIMEN Performed By: #### 2 4321-2, , 2776-05 ####[facility] LABORATORYCLIA [id number] [address] [place] Urea nitrogen [Mass/Vol] 12 mg/dL Normal 9-24 [facility] Comment on above: Order Comment: Speci men Type: BLOOD SPECIMEN Performed By: #### 2 1-2, , 2776-05 ####[facility] LABORATORYCLIA [id number] [address] CBC panel Auto (Bld)on 06-02 Erythrocyte distribution width (RBC) [Ratio] 15.0 % Normal 11.5-15.0 [facility] Comment on above: Order Comment: Speci men Type: BLOOD SPECIMEN Performed By: #### 5 8410-2 ####[facility] LABORATORYCLIA [id number] [address] Hematocrit (Bld) [Volume fraction] 34.3 % Low 39.0-51.0 [facility] Comment on above: Order Comment: Speci men Type: BLOOD SPECIMEN Performed By: #### 5 8410-2 ####[facility] LABORATORYCLIA [id number] [address] Hemoglobin (Bld) [Mass/Vol] 10.3 g/dL Low 13.0-17.0 [facility] Comment on above: Order Comment: Speci men Type: BLOOD SPECIMEN Performed By: #### 5 8410-2 ####[facility] LABORATORYCLIA [id number] [address] MCH (RBC) [Entitic mass] 27.0 pg Normal 26.0-34.0 [facility] Comment on above: Order Comment: Speci men Type: BLOOD SPECIMEN Performed By: #### 5 8410-2 ####[facility] LABORATORYCLIA [id number] [address] MCHC (RBC) [Mass/Vol] 30.0 g/dL Low 30.5-36.0 [facility] Comment on above: Order Comment: Speci men Type: BLOOD SPECIMEN Performed By: #### 5 8410-2 ####[facility] LABORATORYCLIA [id number] [address] MCV (RBC) [Entitic vol] 90.0 fL Normal 80.0-100.0 [facility] Comment on above: Order Comment: Speci men Type: BLOOD SPECIMEN Performed By: #### 5 8410-2 ####[facility] LABORATORYCLIA [id number] [address] Nucleated RBC (Bld) [#/Vol] 10*3/uL Normal <0.01 [facility] Comment on above: Order Comment: Speci men Type: BLOOD SPECIMEN Performed By: #### 5 8410-2 ####[facility] LABORATORYCLIA [id number] [address] Platelet mean volume (Bld) [Entitic vol] 10.2 fL Normal 9.0-12.7 [facility] Comment on above: Order Comment: Speci men Type: BLOOD SPECIMEN Performed By: #### 5 8410-2 ####[facility] LABORATORYCLIA [id number] [address] Platelets (Bld) [#/Vol] 194 10*3/uL Normal 150-400 [facility] Comment on above: Order Comment: Speci men Type: BLOOD SPECIMEN Performed By: #### 5 8410-2 ####[facility] LABORATORYCLIA [id number] [address] RBC (Bld) [#/Vol] 3.81 10*6/uL Low 4.20-6.00 [facility] Comment on above: Order Comment: Speci men Type: BLOOD SPECIMEN Performed By: #### 5 8410-2 ####[facility] LABORATORYCLIA [id number] [address] WBC (Bld) [#/Vol] 9.22 10*3/uL Normal 3.70-11.00 [facility] Comment on above: Order Comment: Speci men Type: BLOOD SPECIMEN Performed By: #### 5 8410-2 ####[facility] LABORATORYCLIA [id number] [address] CONSULT PROGon 06-02-2021 CONSULT PROG Normal [facility] CSF MANUAL DIFFon 06-02-2021 DIF TTL, CSF 25 cells counted Normal [facility] Comment on above: Order Comment: Speci men Type: CEREBROSPINAL FLUID Performed By: #### 3 4563-7, [id number], [id number] ####[facility]ORATORYCLIA [id number] [address] [place] LYMPH%, CSF 4 % Low 50-90 [facility] Comment on above: Order Comment: Speci men Type: CEREBROSPINAL FLUID Performed By: #### 3 4563-7, [id number], [id number] ####[facility]ORATORYCLIA [id number] [address] [place] MACRO%, CSF 4 % High <1 [facility] Comment on above: Order Comment: Speci men Type: CEREBROSPINAL FLUID Performed By: #### 3 4563-7, [id number], [id number] ####[facility]ORATORYCLIA [id number] [address] [place] MONO%, CSF 20 % Normal 10-50 [facility] Comment on above: Order Comment: Speci men Type: CEREBROSPINAL FLUID Performed By: #### 3 4563-7, [id number], [id number] ####[facility]ORATORYCLIA [id number] [address] [place] NEUT%, CSF 72 % High 0-3 [facility] Comment on above: Order Comment: Speci men Type: CEREBROSPINAL FLUID Performed By: #### 3 4563-7, [id number], [id number] ####[facility]ORATORYCLIA [id number] [address] CSF PATHOLOGIST INTERP (LAB REFLEX ORDER-NO BILL)on 06-02-2021 CSF STAFF REVIEW Negative Normal [facility] Comment on above: Order Comment: Speci men Type: CEREBROSPINAL FLUID Performed By: #### 3 4563-7, [id number], [id number] ####[facility]ORATORYCLIA [id number] [address] Pathologist name Reviewed by Amador Stevens MD [facility] Comment on above: Order Comment: Speci men Type: CEREBROSPINAL FLUID Performed By: #### 3 4563-7, [id number], [id number] ####[facility]ORATORYCLIA [id number] [address] Cell count panel (CSF)on Clarity (CSF) Clear Normal Clear [facility] Comment on above: Order Comment: Speci men Type: CEREBROSPINAL FLUID Performed By: #### 3 4563-7, [id number], [id number] ####[facility]ORATORYCLIA [id number] [address] Clarity (Unsp spec) Not Indicated Normal Clear [facility] Comment on above: Order Comment: Speci men Type: CEREBROSPINAL FLUID Performed By: #### 3 4563-7, [id number], [id number] ####[facility]ORATORYCLIA [id number] [address] Color (CSF) Colorless Normal Colorless [facility] Comment on above: Order Comment: Speci men Type: CEREBROSPINAL FLUID Performed By: #### 3 4563-7, [id number], UDR3242 ####[facility] LABORATORYCLIA [id number] [address] Color (Spun CSF) Not Indicated Normal Colorless [facility] Comment on above: Order Comment: Speci men Type: CEREBROSPINAL FLUID Performed By: #### 3 4563-7, [id number], [id number] ####[facility]ORATORYCLIA [id number] [address] CSF TUBE NUMBER Sterile Container Normal [facility] Comment on above: Order Comment: Speci men Type: CEREBROSPINAL FLUID Performed By: #### 3 4563-7, [id number], [id number] ####[facility]ORATORYCLIA [id number] [address] RBC Manual cnt (CSF) [#/Vol] 117 cells/uL High 0-5 [facility] Comment on above: Order Comment: Speci men Type: CEREBROSPINAL FLUID Performed By: #### 3 4563-7, [id number], PFK2940 ####[facility] LABORATORYCLIA [id number] [address] WBC Manual cnt (CSF) [#/Vol] 1 cells/uL Normal 0-5 [facility] Comment on above: Order Comment: Speci men Type: CEREBROSPINAL FLUID Performed By: #### 3 4563-7, [id number], [id number] ####[facility] LABORATORYCLIA [id number] [address] Glucose CSF-mCncon 2 Glucose (CSF) [Mass/Vol] 82 mg/dL High 40-70 [facility] Comment on above: Order Comment: Speci men Type: CEREBROSPINAL FLUID Result Comment: Lumb ar CSF glucose values of healthy patients are approximately 60% of the plasma values and must always be compared with a concurrently measured plasma value for adequate clinical interpretation.References: 1. Glucose HK (GLUC3) [package insert V 12.0 Syrian]. [employer], [place], [place]. September 2015. 2. Michelle Moore, Loki HGarfield (2015). Chapter 7: Glucose and Lactate. F. Irina rose al.(eds.), Cerebrospinal Fluid in Clinical Neurology. Dickenson: [employer]. Performed By: #### 2 342-4 ####[facility] LABORATORYCLIA [id number] [address] HEPATIC FUNCTION PNLon 06-02 Albumin [Mass/Vol] 3.2 g/dL Low 3.9-4.9 [facility] Comment on above: Order Comment: Speci men Type: BLOOD SPECIMEN Performed By: #### H FP, 18395-5 ####[facility] LABORATORYCLIA [id number] [address] ALP [Catalytic activity/Vol] 67 U/L Normal 38-113 [facility] Comment on above: Order Comment: Speci men Type: BLOOD SPECIMEN Performed By: #### [place], 20238-2 ####[facility] LABORATORYCLIA [id number] [address] [place] ALT With P-5'-P [Catalytic activity/Vol] 16 U/L Normal 10-54 [facility] Comment on above: Order Comment: Speci men Type: BLOOD SPECIMEN Performed By: #### [place], [address]-4 ####[facility]ORATORYCLIA [id number] [address] AST With P-5'-P [Catalytic activity/Vol] 25 U/L Normal 14-40 [facility] Comment on above: Order Comment: Speci men Type: BLOOD SPECIMEN Performed By: #### [place], [address]-0 ####[facility]ORATORYCLIA [id number] [address] Bilirubin [Mass/Vol] 0.2 mg/dL Normal 0.2-1.3 [facility] Comment on above: Order Comment: Speci men Type: BLOOD SPECIMEN Performed By: #### [place] KATHIE, 33702-5 ####[facility]ORATORYCLIA [id number] [address] Bilirubin.conjugated [Mass/Vol] mg/dL Normal <0.2 [facility] Comment on above: Order Comment: Speci men Type: BLOOD SPECIMEN Performed By: #### [place], [address]-9 ####[facility]ORATORYCLIA [id number] [address] Protein [Mass/Vol] 5.8 g/dL Low 6.3-8.0 [facility] Comment on above: Order Comment: Speci men Type: BLOOD SPECIMEN Performed By: #### [place], [address]-2 ####[facility]ORATORYCLIA [id number] [address] MRI BRAIN WO/W IVCONon 06-02 MRI BRAIN WO/W IVCON Normal [facility] Magnesium SerPl-mCncon 06-02 Magnesium [Mass/Vol] 2.0 mg/dL Normal 1.7-2.3 [facility] Comment on above: Order Comment: Speci men Type: BLOOD SPECIMEN Performed By: #### 2 4321-2, 38495-2, 2777-1 ####[facility] LABORATORYCLIA [id number] [address] NT-proBNP [facility] Natriuretic peptide.B prohormone N-Terminal [Mass/Vol] 296 pg/mL High <125 [facility] Comment on above: Order Comment: Speci men Type: BLOOD SPECIMEN Performed By: #### H FP, 16481-6 ####[facility] LABORATORYCLIA [id number] [address] OF [facility] POTASSIUM BLDon 06-02-2021 Potassium [Moles/Vol] 3.2 mmol/L Low 3.7-5.1 [facility] Comment on above: Order Comment: Speci men Type: BLOOD SPECIMEN Performed By: #### K 1 ####[facility] LABORATORYCLIA [id number] [address] [facility] 06-02 Phosphate [Mass/Vol] 2.1 mg/dL Low 2.7-4.8 [facility] Comment on above: Order Comment: Speci men Type: BLOOD SPECIMEN Performed By: #### 2 4321-2, 17662-5, 2776-05 ####[facility] LABORATORYCLIA [id number] [address] OF [facility] Vancomycin random [Mass/Vol] on 06-02-2021 [...] 4 091-5 ####[facility] LABORATORYCLIA [id number] [address] OF [facility] ALLIED HEALTHon 06-01-2021 ALLIED HEALTH Normal [facility] ALLIED HEALTH Normal [facility] ALLIED HEALTH Normal [facility] ARTERIAL BLOOD GASESon 06-01 Base excess Calc (Bld) [Moles/Vol] 1 mmol/L Normal 0-2 [facility] Comment on above: Order Comment: Speci men Type: ARTERIAL BLOOD SPECIMEN Performed By: #### A LLBG ####[facility] LABORATORYCLIA [id number] [address] Body temperature 97.52 [degF] Normal [facility] Comment on above: Order Comment: Speci men Type: ARTERIAL BLOOD SPECIMEN Performed By: #### A LLBG ####[facility] LABORATORYCLIA [id number] [address] CALCIUM IONIZED, PH CORRECTED 1.13 mmol/L Normal 1.08-1.30 [facility] Comment on above: Order Comment: Speci men Type: ARTERIAL BLOOD SPECIMEN Performed By: #### A LLBG ####[facility] LABORATORYCLIA [id number] [address] STATES OF [facility] Calcium.ionized (BldV) [Mass/Vol] 1.12 mmol/L Normal 1.08-1.30 [facility] Comment on above: Order Comment: Speci men Type: ARTERIAL BLOOD SPECIMEN Performed By: #### A LLBG ####[facility] LABORATORYCLIA [id number] [address] OF [facility] Carboxyhemoglobin (BldA) [Mass fraction] 1.6 % Normal 0.0-2.0 [facility] Comment on above: Order Comment: Speci men Type: ARTERIAL BLOOD SPECIMEN Result Comment: Carb oxyhemoglobin Reference Range for Smokers: 2.0-8.0% Performed By: #### A LLBG ####[facility] LABORATORYCLIA [id number] [address] CO2 (Bld) [Partial pressure] 41 mm Hg Normal 36-46 [facility] Comment on above: Order Comment: Speci men Type: ARTERIAL BLOOD SPECIMEN Performed By: #### A LLBG ####[facility]ATORYCLIA [id number] [address] CO2 [Moles/Vol] 23.0 mmol/L Normal 22-28 [facility] Comment on above: Order Comment: Speci men Type: ARTERIAL BLOOD SPECIMEN Performed By: #### A LLBG ####[facility]ATORYCLIA [id number] [address] CO2 adjusted to patient's actual temperature (Bld) [Partial pressure] 40 mmHg Normal 36-46 [facility] Comment on above: Order Comment: Speci men Type: ARTERIAL BLOOD SPECIMEN Performed By: #### A LLBG ####[facility]ORATORYCLIA [id number] [address] FIO2 40 % Normal [facility] Comment on above: Order Comment: Speci men Type: ARTERIAL BLOOD SPECIMEN Performed By: #### A LLBG ####[facility]ATORYCLIA [id number] [address] Glucose [Mass/Vol] 127 mg/dL High 60-105 [facility] Comment on above: Order Comment: Speci men Type: ARTERIAL BLOOD SPECIMEN Performed By: #### A LLBG ####[facility]ORATORYCLIA [id number] [address] HCO3 (Bld) [Moles/Vol] 25 mmol/L Normal 22-26 [facility] Comment on above: Order Comment: Speci men Type: ARTERIAL BLOOD SPECIMEN Performed By: #### A LLBG ####[facility]ORATORYCLIA [id number] [address] Hematocrit (Bld) [Volume fraction] 33.7 % Low 39.0-51.0 [facility] Comment on above: Order Comment: Speci men Type: ARTERIAL BLOOD SPECIMEN Performed By: #### A LLBG ####[facility]ORATORYCLIA [id number] [address] [place] Hemoglobin (Bld) [Mass/Vol] 10.9 g/dL Low 13.0-17.0 [facility] Comment on above: Order Comment: Speci men Type: ARTERIAL BLOOD SPECIMEN Performed By: #### A LLBG ####[facility]ORATORYCLIA [id number] [address] INHALED TIDAL VOLUME (ML) 500 Normal [facility] Comment on above: Order Comment: Speci men Type: ARTERIAL BLOOD SPECIMEN Performed By: #### A LLBG ####[facility]ORATORYCLIA [id number] [address] INVASIVE VENTILATOR MODE PRVC=Pressure Regulated Volume Control Normal [facility] Comment on above: Order Comment: Speci men Type: ARTERIAL BLOOD SPECIMEN Performed By: #### A LLBG ####[facility]ORATORYCLIA [id number] [address] Methemoglobin (Bld) [Mass fraction] % Normal 0.0-1.5 [facility] Comment on above: Order Comment: Speci men Type: ARTERIAL BLOOD SPECIMEN Performed By: #### A LLBG ####[facility]ORATORYCLIA [id number] [address] [place] O2 THERAPY Ventilator Normal [facility] Comment on above: Order Comment: Speci men Type: ARTERIAL BLOOD SPECIMEN Performed By: #### A LLBG ####[facility]ORATORYCLIA [id number] [address] [place] Oxygen (Bld) [Partial pressure] 64 mm Hg Low 85-95 [facility] Comment on above: Order Comment: Speci men Type: ARTERIAL BLOOD SPECIMEN Performed By: #### A LLBG ####[facility]ORATORYCLIA [id number] [address] Oxygen adjusted to patient's actual temperature (Bld) [Partial pressure] 61.8 mmHg Low 85-95 [facility] Comment on above: Order Comment: Speci men Type: ARTERIAL BLOOD SPECIMEN Performed By: #### A LLBG ####[facility]ORATORYCLIA [id number] [place] [address] OXYGEN SATURATION, ARTERIAL 94 % Low 95-98 [facility] Comment on above: Order Comment: Speci men Type: ARTERIAL BLOOD SPECIMEN Performed By: #### A LLBG ####[facility]ORATORYCLIA [id number] [address] Oxyhemoglobin (BldA) [Mass fraction] 92 % Low 95-98 [facility] Comment on above: Order Comment: Speci men Type: ARTERIAL BLOOD SPECIMEN Performed By: #### A LLBG ####[facility]ORATORYCLIA [id number] [address] PEEP/CPAP 5 cmH2O Normal [facility] Comment on above: Order Comment: Speci men Type: ARTERIAL BLOOD SPECIMEN Performed By: #### A LLBG ####[facility] LABORATORYCLIA [id number] [address] pH (Bld) 7.40 [pH] Normal 7.35-7.45 [facility] Comment on above: Order Comment: Speci men Type: ARTERIAL BLOOD SPECIMEN Performed By: #### A LLBG ####[facility] LABORATORYCLIA [id number] [address] pH adjusted to patient's actual temperature (Bld) 7.41 Normal 7.35-7.45 [facility] Comment on above: Order Comment: Speci men Type: ARTERIAL BLOOD SPECIMEN Performed By: #### A LLBG ####[facility]ORATORYCLIA [id number] [address] Potassium [Moles/Vol] 3.1 mmol/L Low 3.5-5.0 [facility] Comment on above: Order Comment: Speci men Type: ARTERIAL BLOOD SPECIMEN Performed By: #### A LLBG ####[facility]ATORYCLIA [id number] [address] SET VENTILATOR RESPIRATORY RATE (BPM) 18 BPM Normal [facility] Comment on above: Order Comment: Speci men Type: ARTERIAL BLOOD SPECIMEN Performed By: #### A LLBG ####[facility]ATORYCLIA [id number] [address] Sodium [Moles/Vol] 141 mmol/L Normal 136-144 [facility] Comment on above: Order Comment: Speci men Type: ARTERIAL BLOOD SPECIMEN Performed By: #### A LLBG ####[facility]ATORYCLIA [id number] [address] BASE DEFICIT, ARTERIAL -1.0 mmol/L Normal -2-0 [facility] Comment on above: Order Comment: Speci men Type: ARTERIAL BLOOD SPECIMEN Performed By: #### A LLBG ####[facility]ORATORYCLIA [id number] [address] Body temperature 98.24 [degF] Normal [facility] Comment on above: Order Comment: Speci men Type: ARTERIAL BLOOD SPECIMEN Performed By: #### A LLBG ####[facility]ORATORYCLIA [id number] [address] CALCIUM IONIZED, PH CORRECTED 1.08 mmol/L Normal 1.08-1.30 [facility] Comment on above: Order Comment: Speci men Type: ARTERIAL BLOOD SPECIMEN Performed By: #### A LLBG ####[facility]ATORYCLIA [id number] [address] Calcium.ionized (BldV) [Mass/Vol] 1.15 mmol/L Normal 1.08-1.30 [facility] Comment on above: Order Comment: Speci men Type: ARTERIAL BLOOD SPECIMEN Performed By: #### A LLBG ####[facility]ORYCLIA [id number] [address] Carboxyhemoglobin (BldA) [Mass fraction] 1.4 % Normal 0.0-2.0 [facility] Comment on above: Order Comment: Speci men Type: ARTERIAL BLOOD SPECIMEN Result Comment: Carb oxyhemoglobin Reference Range for Smokers: 2.0-8.0% Performed By: #### A LLBG ####[facility]ATORYCLIA [id number] [place], [place] [address] [place] [address] CO2 (Bld) [Partial pressure] 59 mm Hg High 36-46 [facility] Comment on above: Order Comment: Speci men Type: ARTERIAL BLOOD SPECIMEN Performed By: #### A LLBG ####[facility]ORYCLIA [id number] [place], [place] [id number] [place] [address] [place] CO2 [Moles/Vol] 24.5 mmol/L Normal 22-28 [facility] Comment on above: Order Comment: Speci men Type: ARTERIAL BLOOD SPECIMEN Performed By: #### A LLBG ####[facility]ORYCLIA [id number] [address] CO2 adjusted to patient's actual temperature (Bld) [Partial pressure] 58 mmHg High 36-46 [facility] Comment on above: Order Comment: Speci men Type: ARTERIAL BLOOD SPECIMEN Performed By: #### A LLBG ####[facility]ORYCLIA [id number] [address] [place] FIO2 40 % Normal [facility] Comment on above: Order Comment: Speci men Type: ARTERIAL BLOOD SPECIMEN Performed By: #### A LLBG ####[facility]ORYCLIA [id number] [address] Glucose [Mass/Vol] 128 mg/dL High 60-105 [facility] Comment on above: Order Comment: Speci men Type: ARTERIAL BLOOD SPECIMEN Performed By: #### A LLBG ####[facility]ORYCLIA [id number] [address] HCO3 (Bld) [Moles/Vol] 26 mmol/L Normal 22-26 [facility] Comment on above: Order Comment: Speci men Type: ARTERIAL BLOOD SPECIMEN Performed By: #### A LLBG ####[facility]ORYCLIA [id number] [address] OF [place] Hematocrit (Bld) [Volume fraction] 35.6 % Low 39.0-51.0 [facility] Comment on above: Order Comment: Speci men Type: ARTERIAL BLOOD SPECIMEN Performed By: #### A LLBG ####[facility]ORYCLIA [id number] [address] Hemoglobin (Bld) [Mass/Vol] 11.5 g/dL Low 13.0-17.0 [facility] Comment on above: Order Comment: Speci men Type: ARTERIAL BLOOD SPECIMEN Performed By: #### A LLBG ####[facility]ORYCLIA [id number] [address] [place] INHALED TIDAL VOLUME (ML) 500 Normal [facility] Comment on above: Order Comment: Speci men Type: ARTERIAL BLOOD SPECIMEN Performed By: #### A LLBG ####[facility]ORYCLIA [id number] [address] INVASIVE VENTILATOR MODE PRVC=Pressure Regulated Volume Control [facility] Comment on above: Order Comment: Speci men Type: ARTERIAL BLOOD SPECIMEN Performed By: #### A LLBG ####[facility]ORYCLIA [id number] [address] OF [facility] Methemoglobin (Bld) [Mass fraction] % Normal 0.0-1.5 [facility] Comment on above: Order Comment: Speci men Type: ARTERIAL BLOOD SPECIMEN Performed By: #### A LLBG ####[facility]ORYCLIA [id number] [address] O2 THERAPY Ventilator Normal [facility] Comment on above: Order Comment: Speci men Type: ARTERIAL BLOOD SPECIMEN Performed By: #### A LLBG ####[facility]ORYCLIA [id number] [address] Oxygen (Bld) [Partial pressure] 88 mm Hg Normal 85-95 [facility] Comment on above: Order Comment: Speci men Type: ARTERIAL BLOOD SPECIMEN Performed By: #### A LLBG ####[facility]ORYCLIA [id number] [address] Oxygen adjusted to patient's actual temperature (Bld) [Partial pressure] 86.5 mmHg Normal 85-95 [facility] Comment on above: Order Comment: Speci men Type: ARTERIAL BLOOD SPECIMEN Performed By: #### A LLBG ####[facility]ORYCLIA [id number] [address] OXYGEN SATURATION, ARTERIAL 95 % Normal 95-98 [facility] Comment on above: Order Comment: Speci men Type: ARTERIAL BLOOD SPECIMEN Performed By: #### A LLBG ####[facility]ORYCLIA [id number] [address] Oxyhemoglobin (BldA) [Mass fraction] 93 % Low 95-98 [facility] Comment on above: Order Comment: Speci men Type: ARTERIAL BLOOD SPECIMEN Performed By: #### A LLBG ####[facility]ORYCLIA [id number] [address] PEEP/CPAP 5 cmH2O Normal [facility] Comment on above: Order Comment: Speci men Type: ARTERIAL BLOOD SPECIMEN Performed By: #### A LLBG ####[facility]ORYCLIA [id number] [address] OF [facility] pH (Bld) 7.27 [pH] Low 7.35-7.45 [facility] Comment on above: Order Comment: Speci men Type: ARTERIAL BLOOD SPECIMEN Performed By: #### A LLBG ####[facility]ORYCLIA [id number] [address] pH adjusted to patient's actual temperature (Bld) 7.28 Low 7.35-7.45 [facility] Comment on above: Order Comment: Speci men Type: ARTERIAL BLOOD SPECIMEN Performed By: #### A LLBG ####[facility]ORYCLIA [id number] [address] Potassium [Moles/Vol] 3.3 mmol/L Low 3.5-5.0 [facility] Comment on above: Order Comment: Speci men Type: ARTERIAL BLOOD SPECIMEN Performed By: #### A LLBG ####[facility]ATORYCLIA [id number] [address] SET VENTILATOR RESPIRATORY RATE (BPM) 14 BPM Normal [facility] Comment on above: Order Comment: Speci men Type: ARTERIAL BLOOD SPECIMEN Performed By: #### A LLBG ####[facility]ATORYCLIA [id number] [address] Sodium [Moles/Vol] 141 mmol/L Normal 136-144 [facility] Comment on above: Order Comment: Speci men Type: ARTERIAL BLOOD SPECIMEN Performed By: #### A LLBG ####[facility]ORATORYCLIA [id number] [address] Bacteria CSF Culton 06-01-19 22 Bacteria identified Cx Nom (CSF) CULTURE, CSF: No growth 14 days GRAM STAIN: No organisms seen Rare Polymorphonuclear leukocytes Moderate Red Blood Cells Gram stain performed on cytospun specimen. Normal [facility] Comment on above: Performed By: #### 6 06-4 ####[facility]ORATORYCLIA [id number] [address] Bacteria Spec Resp Culton Bacteria identified Respiratory culture Nom (Unsp spec) CULTURE, RESPIRATORY: No growth 2 days GRAM STAIN: No organisms seen No Polymorphonuclear Leukocytes Normal [facility] Comment on above: Performed By: #### 3 2355-0 ####[facility]ATORYCLIA [id number] [address] Basic metabolic 2000 panelon 06-01-2021 Anion gap [Moles/Vol] 8 mmol/L Low 9-18 [facility] Comment on above: Order Comment: Speci men Type: BLOOD SPECIMEN Performed By: #### 2 4321-2, 18843-3, 2777-1 ####[facility]ORYCLIA [id number] [address] [place] Calcium [Mass/Vol] 7.8 mg/dL Low 8.5-10.2 [facility] Comment on above: Order Comment: Speci men Type: BLOOD SPECIMEN Performed By: #### 2 4321-2, , 2776-05 ####[facility]ORATORYCLIA [id number] [address] STATES [facility] Chloride [Moles/Vol] 109 mmol/L High 97-105 [facility] Comment on above: Order Comment: Speci men Type: BLOOD SPECIMEN Performed By: #### 2 4321-2, , 2776-05 ####[facility]ATORYCLIA [id number] [address] [place] CO2 [Moles/Vol] 26 mmol/L Normal 22-30 [facility] Comment on above: Order Comment: Speci men Type: BLOOD SPECIMEN Performed By: #### 2 4321-2, , 2776-05 ####[facility]ORATORYCLIA [id number] [address] STATES OF [facility] Creatinine [Mass/Vol] 0.82 mg/dL Normal 0.73-1.22 [facility] Comment on above: Order Comment: Speci men Type: BLOOD SPECIMEN Performed By: #### 2 4321-2, , 2776-05 ####[facility]ATORYCLIA [id number] [address] [place] GFR/1.73 sq M.predicted MDRD (S/P/Bld) [Vol rate/Area] mL/min/{1.73_m2} Normal [facility] Comment on above: Order Comment: [...] , 2776-05 ####[facility]ORATORYCLIA [id number] [place] [address] [place] Glucose [Mass/Vol] 105 mg/dL High 74-99 [facility] Comment on above: Order Comment: [...] , 2776-05 ####[facility]ORATORYCLIA [id number] [place] [address] [place] Potassium [Moles/Vol] 3.8 mmol/L Normal 3.7-5.1 [facility] Comment on above: Order Comment: Speci men Type: BLOOD SPECIMEN Performed By: #### 2 4320-2, , 2776-05 ####[facility]ATORYCLIA [id number] [place] [address] [place] Sodium [Moles/Vol] 143 mmol/L Normal 136-144 [facility] Comment on above: Order Comment: Speci men Type: BLOOD SPECIMEN Performed By: #### 2 4320-2, , 2776-05 ####[facility]ATORYCLIA [id number] [place] [address] [place] Urea nitrogen [Mass/Vol] 15 mg/dL Normal 9-24 [facility] Comment on above: Order Comment: Speci men Type: BLOOD SPECIMEN Performed By: #### 2 4321-2, 13464-7, 2777-1 ####[facility]ATORYCLIA [id number] [address] CBC panel Auto (Bld)on 06-01 Erythrocyte distribution width (RBC) [Ratio] 15.4 % High 11.5-15.0 [facility] Comment on above: Order Comment: Speci men Type: BLOOD SPECIMEN Performed By: #### 5 8410-2 ####[facility]ATORYCLIA [id number] [address] Hematocrit (Bld) [Volume fraction] 38.4 % Low 39.0-51.0 [facility] Comment on above: Order Comment: Speci men Type: BLOOD SPECIMEN Performed By: #### 5 8410-2 ####[facility]ORYCLIA [id number] [address] Hemoglobin (Bld) [Mass/Vol] 11.1 g/dL Low 13.0-17.0 [facility] Comment on above: Order Comment: Speci men Type: BLOOD SPECIMEN Performed By: #### 5 8410-2 ####[facility]ATORYCLIA [id number] [address] MCH (RBC) [Entitic mass] 26.9 pg Normal 26.0-34.0 [facility] Comment on above: Order Comment: Speci men Type: BLOOD SPECIMEN Performed By: #### 5 8410-2 ####[facility]ATORYCLIA [id number] [address] MCHC (RBC) [Mass/Vol] 28.9 g/dL Low 30.5-36.0 [facility] Comment on above: Order Comment: Speci men Type: BLOOD SPECIMEN Performed By: #### 5 8410-2 ####[facility]ORYCLIA [id number] [address] MCV (RBC) [Entitic vol] 93.2 fL Normal 80.0-100.0 [facility] Comment on above: Order Comment: Speci men Type: BLOOD SPECIMEN Performed By: #### 5 8410-2 ####[facility]ORYCLIA [id number] [address] Nucleated RBC (Bld) [#/Vol] 10*3/uL Normal <0.01 [facility] Comment on above: Order Comment: Speci men Type: BLOOD SPECIMEN Performed By: #### 5 8410-2 ####[facility]ORYCLIA [id number] [address] Platelet mean volume (Bld) [Entitic vol] 10.2 fL Normal 9.0-12.7 [facility] Comment on above: Order Comment: Speci men Type: BLOOD SPECIMEN Performed By: #### 5 8410-2 ####[facility]ORYCLIA [id number] [address] Platelets (Bld) [#/Vol] 231 10*3/uL Normal 150-400 [facility] Comment on above: Order Comment: Speci men Type: BLOOD SPECIMEN Performed By: #### 5 8410-2 ####[facility]ORYCLIA [id number] [address] RBC (Bld) [#/Vol] 4.12 10*6/uL Low 4.20-6.00 [facility] Comment on above: Order Comment: Speci men Type: BLOOD SPECIMEN Performed By: #### 5 8410-2 ####[facility]ORYCLIA [id number] [address] OF [facility] WBC (Bld) [#/Vol] 10.99 10*3/uL Normal 3.70-11.00 [facility] Comment on above: Order Comment: Speci men Type: BLOOD SPECIMEN Performed By: #### 5 8410-2 ####[facility]ATORYCLIA [id number] [address] CONSULT PROGon 06-01-2021 CONSULT PROG Normal [facility] CSF MANUAL DIFFon 06-01-2021 DIF TTL, CSF 100 cells counted Normal [facility] Comment on above: Order Comment: Speci men Type: CEREBROSPINAL FLUID Performed By: #### 3 4563-7, [id number] ####[facility]ORYCLIA [id number] [place], [place] [address] [place] [address] LYMPH%, CSF 11 % Low 50-90 [facility] Comment on above: Order Comment: Speci men Type: CEREBROSPINAL FLUID Performed By: #### 3 4563-7, [id number] ####[facility]ORYCLIA [id number] [address] OF [facility] MONO%, CSF 10 % Normal 10-50 [facility] Comment on above: Order Comment: Speci men Type: CEREBROSPINAL FLUID Performed By: #### 3 4563-7, [id number] ####[facility]ORYCLIA [id number] [address] [place] NEUT%, CSF 79 % High 0-3 [facility] Comment on above: Order Comment: Speci men Type: CEREBROSPINAL FLUID Performed By: #### 3 4563-7, [id number] ####[facility]ORYCLIA [id number] [address] OF [facility] CT BRAIN WO IVCONon 06-01-19 CT BRAIN WO IVCON Normal [facility] Cell count panel (CSF)on Clarity (CSF) Clear Normal Clear [facility] Comment on above: Order Comment: Speci men Type: CEREBROSPINAL FLUID Performed By: #### 3 4563-7, [id number] ####[facility]ORYCLIA [id number] [address] Clarity (Unsp spec) Not Indicated Normal Clear [facility] Comment on above: Order Comment: Speci men Type: CEREBROSPINAL FLUID Performed By: #### 3 4563-7, [id number] ####[facility]ORYCLIA [id number] [address] Color (CSF) Colorless Normal Colorless [facility] Comment on above: Order Comment: Speci men Type: CEREBROSPINAL FLUID Performed By: #### 3 4563-7, [id number] ####[facility]ORYCLIA [id number] [address] Color (Spun CSF) Not Indicated Normal Colorless [facility] Comment on above: Order Comment: Speci men Type: CEREBROSPINAL FLUID Performed By: #### 3 4563-7, [id number] ####[facility]ORYCLIA [id number] [address] CSF TUBE NUMBER Sterile Container Normal [facility] Comment on above: Order Comment: Speci men Type: CEREBROSPINAL FLUID Performed By: #### 3 4563-7, [id number] ####[facility]ORYCLIA [id number] [address] RBC Manual cnt (CSF) [#/Vol] 171 cells/uL High 0-5 [facility] Comment on above: Order Comment: Speci men Type: CEREBROSPINAL FLUID Performed By: #### 3 4563-7, [id number] ####[facility]ORYCLIA [id number] [address] WBC Manual cnt (CSF) [#/Vol] 5 cells/uL Normal 0-5 [facility] Comment on above: Order Comment: Speci men Type: CEREBROSPINAL FLUID Performed By: #### 3 4563-7, [id number] ####[facility]ATORYCLIA [id number] [address] [place] FUNGAL CULTUREon 06-01-2021 FUNGAL CULTURE CULTURE, FUNGAL: No Fungus isolated after 28 days Normal [facility] Comment on above: Performed By: #### F CUL ####[facility]ORYCLIA [id number] [address] [place] Glucose CSF-mCncon Glucose (CSF) [Mass/Vol] 78 mg/dL High 40-70 [facility] Comment on above: Order Comment: Speci men Type: CEREBROSPINAL FLUID Result Comment: Lumb ar CSF glucose values of healthy patients are approximately 60% of the plasma values and must always be compared with a concurrently measured plasma value for adequate clinical interpretation.References: 1. Glucose HK (GLUC3) [package insert V 12.0 Syrian]. [employer], [place], [place]. September 2015. 2. Michelle Moore, Michelle Manjarrez (2015). Chapter 7: Glucose and Lactate. F. Irina rose al.(eds.), Cerebrospinal Fluid in Clinical Neurology. Dickenson: [facility] ([facility]). Performed By: #### 2 342-4, 2880-3 ####[facility]ATORYCLIA [id number] [address] [place] HERPES SIMPLEX CSFon 022 HERPES SIMPLEX CSF HSV PCR SPEC SOURCE: Cerebrospinal Fluid HSV-1: Negative for Herpes Simplex Virus Type 1 by PCR HSV-2: Negative for Herpes Simplex Virus Type 2 by PCR Normal [facility] Comment on above: Performed By: #### H [facility] ####[facility] LABCLIA [id number] [id number] [address] [place] Lactate (Bld) [Moles/Vol]on 06-01-2021 Lactate [Moles/Vol] 0.5 mmol/L Normal 0.5-2.2 [facility] Comment on above: Order Comment: Speci men Type: BLOOD SPECIMEN Performed By: #### 3 2693-4 ####[facility]ATORYCLIA [id number] [address] [place] MENINGITIS ENCEPHALITIS BIOF IREon 06-01-2021 MENINGITIS ENCEPHALITIS BIOFIRE Negative Normal [facility] Comment on above: Order Comment: Speci men Type: CEREBROSPINAL FLUID Performed By: #### M GEBF ####[facility]ITAL[facility]IA [id number] [place] [address] Magnesium SerPl-mCncon 06-01 Magnesium [Mass/Vol] 2.2 mg/dL Normal 1.7-2.3 [facility] Comment on above: Order Comment: Speci men Type: BLOOD SPECIMEN Performed By: #### 2 4321-2, 02210-0, 2776- ####[facility]ATORYCLIA [id number] [address] Microorganism Spec Culton Microorganism identified Cx Nom (Unsp spec) CULTURE, AFB: No Acid Fast Bacilli isolated after 42 days AFB STAIN: No acid fast bacilli seen by flurochrome stain Normal [facility] Comment on above: Performed By: #### 1 1475-1 ####[facility]ATORYCLIA [id number] [address] PROCALCITONIN (LAB)on 2021 Procalcitonin [Mass/Vol] 0.08 ng/mL Normal <0.09 [facility] Comment on above: Order Comment: Speci men Type: BLOOD SPECIMEN Result Comment: For a guided interpretation of test results, please visit the [facility] in Procalcitonin Calculator, [email or web address]. Performed By: #### P ROCAL ####[facility]ATORYCLIA [id number] [address] Phosphate SerPl-ncon 06-01 Phosphate [Mass/Vol] 3.5 mg/dL Normal 2.7-4.8 [facility] Comment on above: Order Comment: Speci men Type: BLOOD SPECIMEN Performed By: #### 2 4321-2, 09497-6, 2776-05 ####[facility]ATORYCLIA [id number] [address] [place] Prot CSF-mCncon 06-01-2021 Protein (CSF) [Mass/Vol] 52 mg/dL High 15-45 [facility] Comment on above: Order Comment: Speci men Type: CEREBROSPINAL FLUID Performed By: #### 2 342-4, 2880-3 ####[facility]ATORYCLIA [id number] [address] [place] Vancomycin random [Mass/Vol] on [...] 4 091-5 ####[facility]ORATORYCLIA [id number] [address] STATES OF [facility] XR CHEST 1V FRONTALon 2021 XR CHEST 1V FRONTAL Normal [facility] XR CHEST 1V FRONTAL Normal [facility] XR NECK SOFT TISSUE 2V AP/LA Ton 06-01-2021 XR NECK SOFT TISSUE 2V AP/LAT Normal [facility] XR SKULL 2V AP/LATon 022 XR SKULL 2V AP/LAT Normal [facility] ALLIED HEALTHon 05-31-2021 ALLIED HEALTH HNO ID: [id number] Author: Christina Lynne RT(R) Service: Radiology Author Type: Technologist Type: Allied Health Filed: 05/31/2021 5:48 PM Note Text: MRI tomorrow per RN. Normal [facility] HEALTH Normal [facility] ALLIED HEALTH Normal [facility] HEALTH Normal [facility] ANES POSTPROC EVALon 022 ANES POSTPROC EVAL Normal [facility] ANES PRE-OPon 05-31-2021 ANES PRE-OP Normal [facility] BRIEF OP NOTon 05-31-2021 BRIEF OP NOT Normal [facility] Bacteria Bld Culton 05-31-19 22 Bacteria identified Cx Nom (Bld) CULTURE, BLOOD: No growth 5 days Normal [facility] Comment on above: Performed By: #### 6 00-7 ####[facility]ORATORYCLIA [id number] [address] OF [facility] Bacteria CSF Culton 05-31-19 22 Bacteria identified Cx Nom (CSF) CULTURE, CSF: No growth 14 days GRAM STAIN: No organisms seen Rare Polymorphonuclear leukocytes Rare Red Blood Cells Gram stain performed on cytospun specimen. Normal [facility] Comment on above: Performed By: #### 6 06-4 ####[facility]ORATORYCLIA [id number] [address] OF [facility] Basic metabolic 2000 panelon 05-31-2021 Anion gap [Moles/Vol] 9 mmol/L Normal 9-18 [facility] Comment on above: Order Comment: Speci men Type: BLOOD SPECIMEN Performed By: #### 2 777-1, 53183-6, ####[facility]ATORYCLIA [id number] [address] [place] Calcium [Mass/Vol] 8.2 mg/dL Low 8.5-10.2 [facility] Comment on above: Order Comment: Speci men Type: BLOOD SPECIMEN Performed By: #### 2 777-1, 79023-6, ####[facility]ORYCLIA [id number] [address] STATES OF [facility] Chloride [Moles/Vol] 110 mmol/L High 97-105 [facility] Comment on above: Order Comment: Speci men Type: BLOOD SPECIMEN Performed By: #### 2 777-1, , ####[facility]ORYCLIA [id number] [address] [place] CO2 [Moles/Vol] 27 mmol/L Normal 22-30 [facility] Comment on above: Order Comment: Speci men Type: BLOOD SPECIMEN Performed By: #### 2 777-1, 75183-9, ####[facility]ATORYCLIA [id number] [address] [place] Creatinine [Mass/Vol] 0.85 mg/dL Normal 0.73-1.22 [facility] Comment on above: Order Comment: Speci men Type: BLOOD SPECIMEN Performed By: #### 2 777-1, 83049-1, ####[facility]ATORYCLIA [id number] [place] [address] [place] GFR/1.73 sq M.predicted MDRD (S/P/Bld) [Vol rate/Area] mL/min/{1.73_m2} Normal [facility] Comment on above: Order Comment: [...] actual GFR. Performed By: #### 2 777-1, 65428-7, 02802-1 ####[facility] LABORATORYCLIA [id number] [place] [address] [place] Glucose [Mass/Vol] 111 mg/dL High 74-99 [facility] Comment on above: Order Comment: [...] 2016.39(Suppl 1). Performed By: #### 2 777-1, 19095-6, 20396-7 ####[facility]ATORYCLIA [id number] [place] [address] [place] Potassium [Moles/Vol] 3.7 mmol/L Normal 3.7-5.1 [facility] Comment on above: Order Comment: Speci men Type: BLOOD SPECIMEN Performed By: #### 2 777-1, 02265-0, ####[facility]ORATORYCLIA [id number] [address] Sodium [Moles/Vol] 146 mmol/L High 136-144 [facility] Comment on above: Order Comment: Speci men Type: BLOOD SPECIMEN Performed By: #### 2 777-1, 78436-4, ####[facility]ORATORYCLIA [id number] [address] STATES OF [facility] Urea nitrogen [Mass/Vol] 16 mg/dL Normal 9-24 [facility] Comment on above: Order Comment: Speci men Type: BLOOD SPECIMEN Performed By: #### 2 777-1, 80270-3, ####[facility]ORATORYCLIA [id number] [address] STATES OF [place] CASE MGT INIT ASSESon 2021 CASE MGT INIT ASSES Normal [facility] CBC W Auto Differential pane l (Bld)on 05-31-2021 Basophils (Bld) [#/Vol] 0.04 10*3/uL Normal <0.11 [facility] Comment on above: Order Comment: Speci men Type: BLOOD SPECIMEN Performed By: #### 5 7021-8 ####[facility]ORATORYCLIA [id number] [address] Basophils/100 WBC (Bld) 0.5 % Normal [facility] Comment on above: Order Comment: Speci men Type: BLOOD SPECIMEN Performed By: #### 5 7021-8 ####[facility]ORATORYCLIA [id number] [address] Differential cell count method Nom (Bld) Auto Normal [facility] Comment on above: Order Comment: Speci men Type: BLOOD SPECIMEN Performed By: #### 5 7021-8 ####[facility]ATORYCLIA [id number] [address] Eosinophils (Bld) [#/Vol] 0.27 10*3/uL Normal <0.46 [facility] Comment on above: Order Comment: Speci men Type: BLOOD SPECIMEN Performed By: #### 5 7021-8 ####[facility]ORATORYCLIA [id number] [address] Eosinophils/100 WBC (Bld) 3.3 % Normal [facility] Comment on above: Order Comment: Speci men Type: BLOOD SPECIMEN Performed By: #### 5 7021-8 ####[facility]ORATORYCLIA [id number] [address] Erythrocyte distribution width (RBC) [Ratio] 15.4 % High 11.5-15.0 [facility] Comment on above: Order Comment: Speci men Type: BLOOD SPECIMEN Performed By: #### 5 7021-8 ####[facility]ORATORYCLIA [id number] [address] Hematocrit (Bld) [Volume fraction] 37.9 % Low 39.0-51.0 [facility] Comment on above: Order Comment: Speci men Type: BLOOD SPECIMEN Performed By: #### 5 7021-8 ####[facility]ATORYCLIA [id number] [address] Hemoglobin (Bld) [Mass/Vol] 11.5 g/dL Low 13.0-17.0 [facility] Comment on above: Order Comment: Speci men Type: BLOOD SPECIMEN Performed By: #### 5 7021-8 ####[facility]ATORYCLIA [id number] [address] IMMATURE GRAN % 0.4 % Normal [facility] Comment on above: Order Comment: Speci men Type: BLOOD SPECIMEN Performed By: #### 5 7021-8 ####[facility]ATORYCLIA [id number] [address] IMMATURE GRAN ABS 0.03 k/uL Normal <0.10 [facility] Comment on above: Order Comment: Speci men Type: BLOOD SPECIMEN Performed By: #### 5 7021-8 ####[facility]ATORYCLIA [id number] [address] Lymphocytes (Bld) [#/Vol] 1.90 10*3/uL Normal 1.00-4.00 [facility] Comment on above: Order Comment: Speci men Type: BLOOD SPECIMEN Performed By: #### 5 7021-8 ####[facility]ATORYCLIA [id number] [address] Lymphocytes/100 WBC (Bld) 23.0 % Normal [facility] Comment on above: Order Comment: Speci men Type: BLOOD SPECIMEN Performed By: #### 5 7021-8 ####[facility]ATORYCLIA [id number] [address] MCH (RBC) [Entitic mass] 28.0 pg Normal 26.0-34.0 [facility] Comment on above: Order Comment: Speci men Type: BLOOD SPECIMEN Performed By: #### 5 7021-8 ####[facility]ATORYCLIA [id number] [address] MCHC (RBC) [Mass/Vol] 30.3 g/dL Low 30.5-36.0 [facility] Comment on above: Order Comment: Speci men Type: BLOOD SPECIMEN Performed By: #### 5 7021-8 ####[facility]ATORYCLIA [id number] [address] MCV (RBC) [Entitic vol] 92.4 fL Normal 80.0-100.0 [facility] Comment on above: Order Comment: Speci men Type: BLOOD SPECIMEN Performed By: #### 5 7021-8 ####[facility]ORATORYCLIA [id number] [address] Monocytes (Bld) [#/Vol] 0.60 10*3/uL Normal <0.87 [facility] Comment on above: Order Comment: Speci men Type: BLOOD SPECIMEN Performed By: #### 5 7021-8 ####[facility]ORATORYCLIA [id number] [address] Monocytes/100 WBC (Bld) 7.3 % Normal [facility] Comment on above: Order Comment: Speci men Type: BLOOD SPECIMEN Performed By: #### 5 7021-8 ####[facility]ATORYCLIA [id number] [address] Neutrophils (Bld) [#/Vol] 5.41 10*3/uL Normal 1.45-7.50 [facility] Comment on above: Order Comment: Speci men Type: BLOOD SPECIMEN Performed By: #### 5 7021-8 ####[facility] LABORATORYCLIA [id number] [address] Neutrophils/100 WBC (Bld) 65.5 % Normal [facility] Comment on above: Order Comment: Speci men Type: BLOOD SPECIMEN Performed By: #### 5 7021-8 ####[facility]ATORYCLIA [id number] [address] Nucleated RBC (Bld) [#/Vol] 10*3/uL Normal <0.01 [facility] Comment on above: Order Comment: Speci men Type: BLOOD SPECIMEN Performed By: #### 5 7021-8 ####[facility]ATORYCLIA [id number] [address] Nucleated RBC/100 WBC (Bld) [Ratio] 0.0 /100 WBC Normal 0.0 [facility] Comment on above: Order Comment: Speci men Type: BLOOD SPECIMEN Performed By: #### 5 7021-8 ####[facility]ATORYCLIA [id number] [address] Platelet mean volume (Bld) [Entitic vol] 9.8 fL Normal 9.0-12.7 [facility] Comment on above: Order Comment: Speci men Type: BLOOD SPECIMEN Performed By: #### 5 7021-8 ####[facility]ATORYCLIA [id number] [address] Platelets (Bld) [#/Vol] 251 10*3/uL Normal 150-400 [facility] Comment on above: Order Comment: Speci men Type: BLOOD SPECIMEN Performed By: #### 5 7021-8 ####[facility]ATORYCLIA [id number] [address] RBC (Bld) [#/Vol] 4.10 10*6/uL Low 4.20-6.00 [facility] Comment on above: Order Comment: Speci men Type: BLOOD SPECIMEN Performed By: #### 5 7021-8 ####[facility]ATORYCLIA [id number] [address] WBC (Bld) [#/Vol] 8.25 10*3/uL Normal 3.70-11.00 [facility] Comment on above: Order Comment: Speci men Type: BLOOD SPECIMEN Performed By: #### 5 7021-8 ####[facility]ATORYCLIA [id number] [address] CONSULTon 05-31-2021 CONSULT Normal [facility] CONSULT Normal [facility] CONSULT Normal [facility] CT BRAIN WO IVCONon 05-31-[address] BRAIN WO IVCON Normal [facility] CT BRAIN WO IVCON Normal [facility] CT CHEST WO IVCONon 05-31-[address] CHEST WO IVCON Normal [facility] Cortis SerPl-mCncon 05-31-19 22 Cortisol [Mass/Vol] 31.0 ug/dL High AM: 5.3-22.5, PM: 3.4-16.8 [facility] Comment on above: Order Comment: Speci men Type: BLOOD SPECIMEN Result Comment: Prov ided reference range is from 6-10 AM sample collection time.Cortisol Reference Range: 6-10 AM = 4.8-19.5 ug/dL, 4-8 PM = 2.5-11.9 ug/dL Performed By: #### 2 143-6, 3016-3 ####[facility]ORATORYCLIA [id number] [address] Cryptoc Ag Spec Ql LAon 05-08 Cryptococcus sp Ag LA Ql (Unsp spec) Negative Normal [facility] Comment on above: Performed By: #### 4 3228-6 ####[facility]ORATORYCLIA [id number] [address] OF [place] HISTORY PHYSICALon 2 HISTORY PHYSICAL Normal [facility] Magnesium SerPl-ncon 05-31 Magnesium [Mass/Vol] 2.2 mg/dL Normal 1.7-2.3 [facility] Comment on above: Order Comment: Speci men Type: BLOOD SPECIMEN Performed By: #### 2 777-1, 42183-4, 02620-9 ####[facility]ATORYCLIA [id number] [address] OF [place] NURSING PROGon 05-31-2021 NURSING PROG Normal [facility] NUTRITIONon 05-31-2021 NUTRITION Normal [facility] OPERATIVE NOon 05-31-2021 OPERATIVE NO Normal [facility] Phosphate SerPl-mCncon 05-31 Phosphate [Mass/Vol] 3.3 mg/dL Normal 2.7-4.8 [facility] Comment on above: Order Comment: Speci men Type: BLOOD SPECIMEN Performed By: #### 2 777-1, 50178-8, ####[facility]ATORYCLIA [id number] [address] STAPH AUREUS PCRon 2 S. aureus and MRSA panel MEGAN+probe (Nose) Normal Negative [facility] Comment on above: Order Comment: Speci men Type: SWAB OF INTERNAL NOSE Result Comment: Nega tive for Staphylococcus aureus by PCR.Negative for MRSA by PCR Performed By: #### S APCR ####[facility]ORATORYCLIA [id number] [address] STATES [place] TSH SerPl-aCncon 05-31-2021 TSH Qn 0.829 m[IU]/L Normal 0.270-4.200 [facility] Comment on above: Order Comment: Speci men Type: BLOOD SPECIMEN Performed By: #### 2 143-6, 3016-3 ####[facility]ATORYCLIA [id number] [address] XR CHEST 1V FRONTALon 2021 XR CHEST 1V FRONTAL Normal [facility] XR CHEST 1V FRONTAL Normal [facility] Blood Cultureon 05-30-2021 Bacteria identified Cx Nom (Bld) Culture Result - No growth 5 days Normal [facility] Comment on above: Performed By: #### C AD #### [facility] [address] [place] [address] Bacteria identified Cx Nom (Bld) Sp. Request/Comment: - 8.2MLS Culture Result - No growth 5 days Normal [facility] Comment on above: Performed By: #### C AD #### [facility] [address] [place] [address] C-Reactive Proteinon 022 C-Reactive Protein 1.7 mg/dL High <0.9 [facility] Comment on above: Performed By: #### C RP ####[facility] [address] [place] [phone] CNDSon 05-30-2021 [facility] HNO ID: [id number] Author: Columba Carroll PA-C Service: Hospital Medicine Author Type: Physician Blanking Press Operator Type: Discharge Summary Filed: 05/30/2021 12:49 PM Note Text: ----- Attestation signed by Ayaka Menjivar MD at 06/01/2021 12:53 PM Attending Note I have personally reviewed the PA/LOGGING SHOVEL OPERATOR note. Agree with above assessment and [...] Team: Attending Provider: Ayaka Menjivar MD Physician Blanking Press Operator: Columba Carroll PA-C Consulting: Lilo [...] consulted. Neurology suggested empiric abx coverage for SCOUT infection Rocephin and Vancomycin was started. 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 Transfer to [facility] requested. Sepsis lactate was 1.3. ABG showed pO2 67.8, placed patient on 2L NC.Follow B1, B12, and RPR pending. Transitions of Care Critical Issues: - patient transferred for [facility] for management of possible SCOUT infection and herniation. LABS AND PROCEDURES PENDING [...] intravenously q 1 (more content not included)... [facility] CONSULTon 05-30-2021 CONSULT HNO ID: [id number] Author: Juan Carlos Mckenzie MD Service: Infectious [...] vertebrae with counting from the craniocervical junction. [employer]: [employer] Transcribe Date/Time: May 29 2021 8:59P Dictated by : CARLOS YOUNGER MD This examination was interpreted and the report reviewed and electronically signed by: CARLOS YOUNGER MD on May 29 2021 9:14PM EST ? CT CERVICAL SPINE WO (more content not included)... Normal [facility] CONSULT HNO ID: [id number] Author: Lilo Mendoza MD Service: Neurology General Author Type: Physician Type: Consults Filed: 05/30/2021 10:56 AM Note Text: [facility] TeleNeurology Consult Note Patient seen using [facility]. Recommendations are placed in the chart. Please review. 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 shunt in 1987 with multiple revisions and [...] 40 mg SUBCUTANEOUS q 24 HR Hermes Roac MD 40 mg at 05/30/21 0130 - [...] [facility] CONSULT PROGon 05-30-2021 CONSULT PROG [facility] CONSULT PROG HNO ID: [id number] Author: Shannon Gutierres [facility] Service: Pharmacy Author Type: Pharmacist Type: Consult Progress Note Filed: 05/30/2021 2:35 PM Note Text: PHARMACY VANCOMYCIN DOSING NOTE Patient Name: Andrew Sifuentes Admission Date: 05/29/2021 Date of Consult: 05/30/2021 Time of Consult: 2:32 PM Indication: possible SCOUT infection Goal Range: 15-20 mcg/mL RECOMMENDATIONS/PLAN: Pharmacy [...] any questions, please contact inpatient pharmacy at [phone]. Age: [age] year old Allergies: ALLERGIES Allergen [...] No results found for: IMANI Gutierres [facility] Normal [facility] Creatinineon 05-30-2021 Creatinine [Mass/Vol] 0.86 mg/dL Normal 0.73-1.22 [facility] Comment on above: Performed By: #### C RET1 ####[facility] Yqny[address]ubisj2007 [address] eGFR- Amer. >60 Normal [facility] Comment on above: Performed By: #### C RET1 ####[facility] Ezadyjbtur2532 [address] eGFR-All Other Races >60 Normal [facility] Comment on above: Result Comment: eGFR [...] Performed By: #### C RET1 ####[facility] [address] [place] [phone] Crypto Antigen Deton 022 Crypto Antigen Det Sp. Request/Comment: - SST Test Result - Duplicate request Account Credited [facility] Comment on above: Performed By: #### C AD #### [facility] [address] [place] [address] [facility] [address] [place] [address] Crypto Antigen Det Sp. Request/Comment: - SST Test Result - Cryptococcal antigen detection result: Negative By latex agglutination [facility] Comment on above: Performed By: #### C AD #### [facility] [address] [place] [phone] [facility] [address] [place] [address] ED NOTEon 05-30-2021 ED NOTE HNO ID: [id number] Author: Aletha Lopez RN Service: ? Author Type: Registered Nurse Type: ED Notes Filed: 05/29/2021 11:16 PM Note Text: Patient changed for incontinent urine, labs redrawn and sent. Patient aware of plan to be admitted and agrees with plan Normal [facility] HISTORY PHYSICALon HISTORY PHYSICAL Normal [facility] HISTORY PHYSICAL HNO ID: [id number] Author: Hermes Roca MD Service: Hospital Medicine Author Type: Physician Type: HANDP Filed: 05/30/2021 1:03 AM Note Text: DEPARTMENT OF HOSPITAL MEDICINE HISTORY AND PHYSICAL EXAM SERVICE DATE: 05/29/2021 SERVICE TIME: 11:18 PM Primary Care Physician: Mateus Burris MD NIGHT AND WEEKEND COVERAGE: Please page [phone] until 7:30am this morning. After 7:30am please check the treatment team banner and page the appropriate service. 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 Normal [facility] Magnesium SerPl-mCncon 05-30 Magnesium [Mass/Vol] 2.5 mg/dL High 1.7-2.3 [facility] Comment on above: Order Comment: Speci men Type: BLOOD SPECIMEN Performed By: #### 1 9123-9, 2777-1 ####[facility]ORATORYCLIA [id number] [place] [address] [place] NURSING PROGon 05-30-2021 NURSING PROG HNO ID: [id number] Author: Precious Cervantes RN Service: ? Author Type: Registered Nurse Type: Nursing Progress Note Filed: 05/30/2021 11:26 AM Note Text: Nursing Progress Note Patient Name: Andrew Sifuentes Patient Location: [place] [address]/[id number]- Daily Note: 0700- Report received from automatic beam warper tender RN, patient resting in bed at this time, call light within reach, bed low and locked. Asked the patient to state his name because automatic beam warper tender RN was unable to complete his admission [...] [facility] HNO ID: [id number] Author: Lyubov Day RN Service: ? Author Type: Registered Nurse Type: Nursing Progress Note Filed: 05/30/2021 1:27 AM Note Text: Nursing Progress Note Patient Name: Andrew STACKN: [id number] Patient Location: [facility]-0217/PR-[id number] 0100: Patient is unresponsive to questions. Patient [...] 05-30 Phosphate [Mass/Vol] 3.5 mg/dL Normal 2.7-4.8 [facility] Comment on above: Order Comment: Speci men Type: BLOOD SPECIMEN Performed By: #### 1 9123-9, 2777-1 ####[facility]ORATORYCLIA [id number] [place] [address] [place] Sepsis Lactateon 05-30-2021 Sepsis Lactate 1.5 mmol/L Normal 0.5-2.0 [facility] Comment on above: Performed By: #### S LACT ####[facility] [address] [place] [phone] Syphilis Ttl w/Reflxon 05-30 Syphilis Interp Cannot exclude recen t Treponemal infection if specimen collected within 7 to 10 days after appearance of suspect lesions or 2 to 3 weeks after an exposure. Clinical correlation is required. [facility] Comment on above: Performed By: #### S SAMUEL RUCKER ####[facility] [place], [place] [phone] Syphilis Screen Rslt Non-Reactive Normal Non Reactive [facility] Comment on above: Performed By: #### S SAMUEL RCUKER ####[facility] [place], [place] [phone] THERAPY NTon 05-30-2021 THERAPY NT HNO ID: [id number] Author: Bette Jimenez OTR/L Service: Occupational Therapy Author Type: Occupational Therapist Type: Therapy (PT/OT/Speech/Resp) Filed: 05/30/2021 10:29 AM Note Text: OCCUPATIONAL THERAPY MISSED VISIT SERVICE DATE: 05/30/2021 SERVICE TIME: 1017 to 1019 ROOM: [place] [address] Attempted Evaluation. Patient not seen due to Not following commands. Per nursing patient was seen by neuro and they are talking about having him transferred to [facility] secondary to shunt concerns. Will re attempt in the event patient continues to be admitted at [place] and is able to participate. SIGNATURE: RADHA Andres/L PATIENT NAME: Andrew Sifuentes DATE: May 30, 2021 TIME: 10:21 AM Normal [facility] THERAPY NT HNO ID: [id number] Author: Bette Velasquez PT Service: Physical Therapy Author Type: Physical Therapist Type: Therapy (PT/OT/Speech/Resp) Filed: 05/30/2021 8:42 AM Note Text: PHYSICAL THERAPY MISSED VISIT SERVICE DATE: 05/30/2021 SERVICE TIME: 0840 to 0840 ROOM: [place] [address] Attempted Evaluation. Patient not seen due to (pt difficult to awake per RN, very lethargic). Will re-attempt when schedule permits. SIGNATURE: Bette Velasquez PT PATIENT NAME: Andrew Sifuentes DATE: May 30, 2021 TIME: 8:41 AM Normal [facility] Toxicology Screen,Uron 05-30 Amphetamines, Urine Negative Normal Negative [facility] Comment on above: Result Comment: Cuto ff threshold at 1000 ng/mL. Performed By: #### C AD #### [facility] [address] [place] [address] [facility] [address] [place], [place] [address] Barbiturates, Urine Negative Normal Negative [facility] Comment on above: Result Comment: Cuto ff threshold at 200 ng/mL. Performed By: #### C AD #### [facility] [place] [phone] [place] [address] Benzodiazepines, Ur Negative Normal Negative [facility] Comment on above: Result Comment: Cuto ff threshold at 200 ng/mL. Performed By: #### C AD #### [facility] [place] [phone] [place] [address] Cannabinoids, Urine Negative Normal Negative [facility] Comment on above: Result Comment: Cuto ff threshold at 50 ng/mL. Performed By: #### C AD #### [facility] [address] [place] [phone] Cocaine, Urine Negative Normal Negative [facility] Comment on above: Result Comment: Cuto ff threshold at 300 ng/mL. Performed By: #### C AD #### [facility] [address] [place], [place] [phone] [place] [address] Opiates, Urine Negative Normal Negative [facility] Comment on above: Result Comment: Cuto ff threshold at 300 ng/mL. Performed By: #### C AD #### [facility] [address] [place], [place] [phone] [place] [address] Oxycodone, Urine Negative Normal Negative [facility] Comment on above: Result Comment: [...] on the same specimen through Client Services ([phone]) if contacted within 48 hours of initial testing. [1]Substance Abuse and Mental Health Services Administration (2012). Clinical Drug Testing in Primary Care Technical Assistance Publication Series 32. Department of Health and Human Services, [place], p.10. Performed By: #### C AD #### [facility] [address] [place] [phone] Phencyclidine, Urine Negative Normal Negative [facility] Comment on above: Result Comment: Cuto ff threshold at 25 ng/mL. Performed By: #### C AD #### [facility] [address] [place] [phone] Troponin Ton 05-30-2021 Troponin T <0.010 Normal 0.000-0.029 [facility] Comment on above: Performed By: #### T NT ####[facility] [address] [place] [phone] Urinalysison 05-30-2021 Bilirubin, Urine Negative Normal Negative [facility] Comment on above: Performed By: #### C AD #### [facility] [address] [place] [phone] Clarity (U) Slightly Cloudy Critically abnormal Clear [facility] Comment on above: Performed By: #### C AD #### [facility] [address] [place] [phone] Color (U) Yellow Normal Yellow [facility] Comment on above: Performed By: #### C AD #### [facility] [address] [place], [place] [address]e [place], [place] [address] Glucose Ql (U) Negative Normal Negative [facility] Comment on above: Performed By: #### C AD #### [facility] [address] [place] [address] [facility] [address] [place], [place] [address] Hemoglobin/Blood,Ur Negative Normal Negative [facility] Comment on above: Performed By: #### C AD #### [facility] [address] [place] [address] [facility] [address] [place], [place] [address] Ketones Ql (U) Negative Normal Negative [facility] Comment on above: Performed By: #### C AD #### [facility] [address] [place] [address] [facility] [address] [place], [place] [address] Leukest Negative Normal Negative [facility] Comment on above: Performed By: #### C AD #### [facility] [address] [place] [address] [facility] [address] [place], [place] [address] Nitrite Ql (U) Negative Normal Negative [facility] Comment on above: Performed By: #### C AD #### [facility] [address] [place] [address] [facility] [address] [place], [place] [address] pH (U) 8.5 [pH] High 5.0-8.0 [facility] Comment on above: Performed By: #### C AD #### [facility] [address] [place] [address] [facility] [address] [place], [place] [address] Protein, Urine Negative Normal Negative [facility] Comment on above: Performed By: #### C AD #### [facility] [address] [place] [address] [facility] [address] [place], [place] [address] Specific [place], Ur 1.015 Normal 1.005-1.030 [facility] Comment on above: Performed By: #### C AD #### [facility] [address] [place] [address] [facility] [address] [place], [place] [address] Urobilinogen Qn (U) 0.2 {Marianne'U}/dL Normal 0.2-1.0 [facility] Comment on above: Performed By: #### C AD #### [facility] [address] [place] [address] [address] Vitamin B1, Whole Blon 05-30 Vitamin B1 (TDP), WB 207.1 nmol/L Normal 84.0-213.0 [facility] Comment on above: Result Comment: This assay measures the concentration of thiamine diphosphate (TDP), the primary active form of vitamin B1. Approximately 90 percent of vitamin B1 present in whole blood is TDP. Thiamine and thiamine monophosphate, which comprise the remaining 10 percent, are not measured. This test was developed and its performance characteristics determined by [facility]'s Isrrael Perez [facility] Pathology and Laboratory [facility] [place] ( [facility]). It has not been cleared or approved by the FDA. [facility] is regulated under CLIA as qualified to perform high complexity testing. This test is used for clinical purposes. It should not be regarded as investigational or for research. Performed By: #### S YPHTX, B1WB ####[facility] [place], [place] [phone] Vitamin B12on 05-30-2021 Cobalamin (Vitamin B12) [Mass/Vol] 494 pg/mL Normal 232-1245 [facility] Comment on above: Performed By: #### C AD #### [facility] [address] [place] [address] [place] [id number] [place], [place] [address] ALLIED HEALTHon 05-29-2021 [facility] HNO ID: [id number] Author: RT Kitty(Lisa) Service: Radiology Author Type: Technologist Type: [facility] Filed: 05/29/2021 8:51 PM Note [...] RT Kitty(R) May 29, 2021 8:51 PM [facility] HNO ID: [id number] Author: Markie Fish Service: ? Author Type: Floor Steward/Stewardess Type: [facility] Filed: 05/29/2021 8:39 PM Note [...] Baso 0.05 k/uL Normal <0.11 [facility] Comment on above: Performed By: #### C MP, MG1, CBCDIF ####[facility] [address] [place] [address] Abs [place] 0.72 k/uL Normal <0.87 [facility] Comment on above: Performed By: #### C MP, MG1, CBCDIF ####[facility] [address] [place] [address] Abs Neut 7.86 k/uL High 1.45-7.50 [facility] Comment on above: Performed By: #### C MP, MG1, CBCDIF ####[place] [address] Absolute nRBC <0.01 Normal <0.01 [facility] Comment on above: Performed By: #### C MP, MG1, CBCDIF ####[place] [address] Basophils/100 WBC (Bld) 0.5 % [facility] Comment on above: Performed By: #### C MP, MG1, CBCDIF ####[place] [address] DTYPE Auto Diff Normal [facility] Comment on above: Performed By: #### C MP, MG1, CBCDIF ####[place] [address] Eosinophils (Bld) [#/Vol] 0.10 10*3/uL Normal <0.46 [facility] Comment on above: Performed By: #### C MP, MG1, CBCDIF ####[place] [address] Eosinophils/100 WBC (Bld) 0.9 % [facility] Comment on above: Performed By: #### C MP, MG1, CBCDIF ####[place] [address] Erythrocyte distribution width (RBC) [Ratio] 15.5 % High 11.5-15.0 [facility] Comment on above: Performed By: #### C MP, MG1, CBCDIF ####[place] [address] Hematocrit (Bld) [Volume fraction] 41.6 % Normal 39.0-51.0 [facility] Comment on above: Performed By: #### C MP, MG1, CBCDIF ####[facility] [address] [place] [address] Hemoglobin (Bld) [Mass/Vol] 12.7 g/dL Low 13.0-17.0 [facility] Comment on above: Performed By: #### C MP, MG1, CBCDIF ####[facility] [address] [place] [address] Lymphocytes (Bld) [#/Vol] 2.04 10*3/uL Normal 1.00-4.00 [facility] Comment on above: Performed By: #### C MP, MG1, CBCDIF ####[facility] [address] [place] [address] Lymphocytes/100 WBC (Bld) 18.9 % Normal [facility] Comment on above: Performed By: #### C MP, MG1, CBCDIF ####[facility] [address] [place] [address] MCH 27.3 pG Normal 26.0-34.0 [facility] Comment on above: Performed By: #### C MP, MG1, CBCDIF ####[facility] [address] [place] [address] MCHC (RBC) [Mass/Vol] 30.5 g/dL Normal 30.5-36.0 [facility] Comment on above: Performed By: #### C MP, MG1, CBCDIF ####[facility] [address] [place], [place] [phone] MCV (RBC) [Entitic vol] 89.5 fL Normal 80.0-100.0 [facility] Comment on above: Performed By: #### C MP, MG1, CBCDIF ####[facility] [address] [place], [place] [phone] Monocytes/100 WBC (Bld) 6.7 % Normal [facility] Comment on above: Performed By: #### C MP, MG1, CBCDIF ####[facility] [address] [place], [place] [phone] Neutrophils/100 WBC (Bld) 73.0 % Normal [facility] Comment on above: Performed By: #### C MP, MG1, CBCDIF ####[facility] [address] [place] [address] NRBCs 0.0 /100 WBC Normal 0 [facility] Comment on above: Performed By: #### C MP, MG1, CBCDIF ####[facility] Ymbkcpibmj9537 [address] Platelet mean volume (Bld) [Entitic vol] 10.1 fL Normal 9.0-12.7 [facility] Comment on above: Performed By: #### C MP, MG1, CBCDIF ####[facility] [address]tpecmx5422 [place] [address] Platelets (Bld) [#/Vol] 291 10*3/uL Normal 150-400 [facility] Comment on above: Performed By: #### C MP, MG1, CBCDIF ####[facility] [address] [place] [address] RBC (Bld) [#/Vol] 4.65 10*6/uL Normal 4.20-6.00 [facility] Comment on above: Performed By: #### C MP, MG1, CBCDIF ####[facility] [address] [place] [address] WBC (Bld) [#/Vol] 10.77 10*3/uL Normal 3.70-11.00 [facility] Comment on above: Performed By: #### C MP, MG1, CBCDIF ####[facility] [address] [place] [address] CT BRAIN WO IVCONon 05-29-19 CT BRAIN WO IVCON * * *Final Report* * * DATE OF EXAM: May 29 2021 8:42PM [facility] [place] - CT BRAIN WO IVCON / PROCEDURE REASON: Head trauma, headache * * * * Physician Interpretation * * * * EXAMINATION: CT CERVICAL SPINE WO IVCON, CT BRAIN WO IVCON CLINICAL HISTORY: C-spine trauma, NEXUS/CCR positive (accession [id number]), Head trauma, headache (accession [id number]) TECHNIQUE: Serial axial unenhanced images were obtained from the vertex to the foramen magnum. Spiral, high resolution axial unenhanced images were obtained from the skull base to the cervicothoracic junction with sagittal and coronal planar reconstructions. Dose-Length Product (DLP): 2132 mGy*cm. CT Dose Reduction Employed: Automated exposure control (AEC) COMPARISON: 08/13/[address] RESULT: BRAIN: Post-operative change: Right parietal approach DATA MINING ANALYST shunt is intact. The intracranial fragments of [...] vertebrae with counting from the craniocervical junction. [employer]: OG Transcribe Date/Time: May 29 2021 8:59P [...] OF EXAM: May 29 2021 8:42PM [facility] 0505 - CT CERVICAL SPINE WO IVCON / PROCEDURE REASON: C-spine trauma, NEXUS/CCR positive * * * * Physician Interpretation * * * * EXAMINATION: CT CERVICAL SPINE WO IVCON, CT BRAIN WO IVCON CLINICAL HISTORY: C-spine trauma, NEXUS/CCR positive (accession [id number]), Head trauma, headache (accession [id number]) TECHNIQUE: Serial axial unenhanced images were obtained from the vertex to the foramen magnum. Spiral, high resolution axial unenhanced images were obtained from the skull base to the cervicothoracic junction with sagittal and coronal planar reconstructions. Dose-Length Product (DLP): 2132 mGy*cm. CT Dose Reduction Employed: Automated exposure control (AEC) COMPARISON: 08/13/[address] RESULT: BRAIN: Post-operative change: Right parietal approach DATA MINING ANALYST shunt is intact. The intracranial fragments of [...] vertebrae with counting from the craniocervical junction. [employer] Pro: [facility] Transcribe Date/Time: May 29 2021 8:59P Dictated by : CARLOS YOUNGER MD This examination was interpreted and the report reviewed and electronically signed by: CARLOS YOUNGER MD on May 29 2021 9:14PM EST [id number] [facility] Cepheid Bill only (EXCFR)on 05-29-2021 Cepheid Bill only (EXCFR) Billed for services performed Normal [facility] Comment on above: Performed By: #### C AD #### [facility] [address] [place] [address] [facility] [address] [place], [place] [address] Comp Metabolic Panelon 05-29 Albumin [Mass/Vol] 4.1 g/dL Normal 3.9-4.9 [facility] Comment on above: Performed By: #### C MP ####[facility] [address] [place] [address] ALP [Catalytic activity/Vol] 86 U/L Normal 38-113 [facility] Comment on above: Performed By: #### C MP ####[facility] [address] [place] [address] ALT [Catalytic activity/Vol] 15 U/L Normal 10-54 [facility] Comment on above: Performed By: #### C MP ####[facility] [address]qcb4390 [place] [address] Anion gap [Moles/Vol] 9 mmol/L Normal 9-18 [facility] Comment on above: Performed By: #### C MP ####[facility] I[address]igo3816 [place] [address] AST [Catalytic activity/Vol] 22 U/L Normal 14-40 [facility] Comment on above: Performed By: #### C MP ####[facility] Defvv[address]uybi7039 [place] [address] Bilirubin [Mass/Vol] 0.2 mg/dL Normal 0.2-1.3 [facility] Comment on above: Performed By: #### C MP ####[facility] [address]tr[address]61 [place] [address] Calcium [Mass/Vol] 9.1 mg/dL Normal 8.5-10.2 [facility] Comment on above: Performed By: #### C MP ####[facility] [address] [place] [address] Chloride [Moles/Vol] 103 mmol/L Normal 97-105 [facility] Comment on above: Performed By: #### C MP ####[facility] [address] [place] [address] CO2 [Moles/Vol] 29 mmol/L Normal 22-30 [facility] Comment on above: Performed By: #### C MP ####[facility] Ont[address]qndyn[address]69 [place] [address] Creatinine [Mass/Vol] 0.89 mg/dL Normal 0.73-1.22 [facility] Comment on above: Performed By: #### C MP ####[facility] Q[address] [place] [address] eGFR- Amer. >60 Normal [facility] Comment on above: Performed By: #### C MP ####[facility] [address] [place] [address] eGFR-All Other Races >60 Normal [facility] Comment on above: Result Comment: eGFR [...] Performed By: #### C MP ####[facility] Xfpgljauco6234 [address] Glucose [Mass/Vol] 120 mg/dL High 74-99 [facility] Comment on above: Result Comment: The [place] [...] 2016.39(Suppl 1). Performed By: #### C MP ####[facility] [address] [place] [address] Potassium [Moles/Vol] 4.2 mmol/L Normal 3.7-5.1 [facility] Comment on above: Performed By: #### C MP ####[facility] [address] [place] [address] Protein [Mass/Vol] 7.1 g/dL Normal 6.3-8.0 [facility] Comment on above: Performed By: #### C MP ####[place] [address] Sodium [Moles/Vol] 141 mmol/L Normal 136-144 [facility] Comment on above: Performed By: #### C MP ####[facility] [address] [place] [address] Urea nitrogen [Mass/Vol] 11 mg/dL Normal 9-24 [facility] Comment on above: Performed By: #### C MP ####[place] [address] Albumin [Mass/Vol] 4.1 g/dL Normal 3.9-4.9 [facility] Comment on above: Performed By: #### C MP, MG1, CBCDIF ####[place] [address] ALP [Catalytic activity/Vol] 86 U/L Normal 38-113 [facility] Comment on above: Performed By: #### C MP, MG1, CBCDIF ####[place] [address] ALT Unable to assay due to interference from hemolysis. Suggest reorder as clinically indicated. Normal 10-54 [facility] Comment on above: Result Comment: Call ed to LISA Rea at 2129 on 05.29.21 by Sabino Performed By: #### C MP, MG1, CBCDIF ####[facility] [address] [place] [address] Anion gap [Moles/Vol] 12 mmol/L Normal 9-18 [facility] Comment on above: Performed By: #### C MP, MG1, CBCDIF ####[facility] [address] [place] [address] AST Unable to assay due to interference from hemolysis. Suggest reorder as clinically indicated. Normal 14-40 [facility] Comment on above: Result Comment: Call ed to ED Álvaro at 2129 on 05.29.21 by Sabino Performed By: #### C MP, MG1, CBCDIF ####[facility] [address] [place] [address] Bilirubin [Mass/Vol] 0.2 mg/dL Normal 0.2-1.3 [facility] Comment on above: Performed By: #### C MP, MG1, CBCDIF ####[facility] [address] [place] [address] Calcium [Mass/Vol] 9.0 mg/dL Normal 8.5-10.2 [facility] Comment on above: Performed By: #### C MP, MG1, CBCDIF ####[facility] [address]lo[address] [place] [address] Chloride [Moles/Vol] 102 mmol/L Normal 97-105 [facility] Comment on above: Performed By: #### C MP, MG1, CBCDIF ####[facility] Xvio[address]vgin9063 [place] [address] CO2 [Moles/Vol] 27 mmol/L Normal 22-30 [facility] Comment on above: Performed By: #### C MP, MG1, CBCDIF ####[facility] [address] [place] [address] Creatinine [Mass/Vol] 0.75 mg/dL Normal 0.73-1.22 [facility] Comment on above: Performed By: #### C MP, MG1, CBCDIF ####[facility] [address]19 [place] [address] eGFR- Amer. >60 Normal [facility] Comment on above: Performed By: #### C MP, MG1, CBCDIF ####[facility] [address]2418 [place] [phone] eGFR-All Other Races >60 Normal [facility] Comment on above: Result Comment: eGFR [...] C MARÍA ELENA, MG1, CBCDIF ####[facility] [address]18[address] [place] [phone] Glucose [Mass/Vol] 112 mg/dL High 74-99 [facility] Comment on above: Result Comment: The [place] [...] #### C MP, MG1, CBCDIF ####[facility] [address]2302 [place] [phone] Potassium Unable to assay due to interference from hemolysis. Suggest reorder as clinically indicated. Normal 3.7-5.1 [facility] Comment on above: Result Comment: Call ed to ED Álvaro at 2129 on 05.29.21 by Sabino Performed By: #### C MP, MG1, CBCDIF ####[facility] [address]643 [place] [phone] Protein [Mass/Vol] 7.3 g/dL Normal 6.3-8.0 [facility] Comment on above: Performed By: #### C MP, MG1, CBCDIF ####[facility] [address]721[address]5160 Sodium [Moles/Vol] 141 mmol/L Normal 136-144 [facility] Comment on above: Performed By: #### C MP, MG1, CBCDIF ####[facility] Bjsw[address]dmkz9904 [place] [phone] Urea nitrogen [Mass/Vol] 11 mg/dL Normal 9-24 [facility] Comment on above: Performed By: #### C MP, MG1, CBCDIF ####[facility] [address] [place] [phone] ED PROV NOTEon 05-29-2021 ED PROV NOTE HNO ID: [id number] Author: Shanell Slaughter MD Service: ? Author [...] No radiographic evidence of acute cardiopulmonary disease. [employer] Pro: [facility] Transcribe Date/Time: May 29 2021 [...] vertebrae with counting from the craniocervical junction. [employer]: [facility] Transcribe Date/Time: May 29 2021 [...] vertebrae with counting from the craniocervical junction. [employer]: [facility] Transcribe Date/Time: May 29 (more content not included)... Normal [facility] ED PROV NOTE HNO ID: [id number] Author: Flavio Pandya DO Service: Emergency Medicine Author Type: Physician Type: ED Provider Notes Filed: 05/29/2021 7:10 PM Note Text: ED Provider Note Patient Name: Andrew Sifuentes SERVICE DATE: 05/29/21 History Patient presents with: Fall 71 yo male non-smoker, hx of HTN, 2 DATA MINING ANALYST shunts, PE (not on anticoagulation now), asthma, [...] Flavio Pandya, DO Flavio Pandya, 05/29/211909 Normal [facility] EXCOVD, Flu A/B, RSV (On int erfaces 1102,1120)on 05-29-2021 Influenza A PCR Negative Normal [facility] Comment on above: Performed By: #### C AD #### [facility] [address] [place], [place] [address] [place] [address] Influenza B PCR Negative Normal [facility] Comment on above: Performed By: #### C AD #### [facility] [address] [place], [place] [address] [place] [address] RSV PCR Negative Normal [facility] Comment on above: Result Comment: This test has been authorized by [facility] under an Emergency Use Authorization (EUA). Performed By: #### C AD #### [facility] [address] [place] [address] SARS-CoV-2 (COVID-19) RNA MEGAN+probe Ql (Unsp spec) UPPER RESPIRATORY TRACT SWAB Normal [facility] Comment on above: Performed By: #### C AD #### [facility] [address] [place], [place] [address] [place] [address] SARS-CoV-2 (COVID-19) RNA MEGAN+probe Ql (Unsp spec) Negative for COVID19 (SARS CoV2) by RT-PCR or equivalent method. Normal Negative for COVID19 (SARS CoV2) by RT-PCR or equivalent method. [facility] Comment on above: Result Comment: This test has been authorized by [facility] under an Emergency Use Authorization (EUA). Performed By: #### C AD #### [facility] [address] [place], [place] [address] [place] [phone] Magnesiumon 05-29-2021 Magnesium [Mass/Vol] 2.2 mg/dL Normal 1.7-2.3 [facility] Comment on above: Performed By: #### C MP, MG1, CBCDIF ####[phone] NT Pro BNPon 05-29-2021 PRO B Natr Peptide 303 pg/mL High <125 [facility] Comment on above: Performed By: #### N TBNP ####[facility] Xiz[address]lpt[address]10 [phone] Troponin Ton 05-29-2021 Troponin T <0.010 Normal 0.000-0.029 [facility] Comment on above: Performed By: #### T NT ####[facility] [address]36[address] [place] [phone] Troponin T Unable to assay due to interference from hemolysis. Suggest reorder as clinically indicated. Normal 0.000-0.029 [facility] Comment on above: Result Comment: Call ed to ED Álvaro at 2129 on 05.29.21 by Sabino Performed By: #### T NT ####[facility] B[address]otrk9870 [phone] XR CHEST 1V FRONTAL PORTon 0 [...] No radiographic evidence of acute cardiopulmonary disease. [employer]: [facility]G Transcribe Date/Time: May 29 2021 8:53P Dictated by : ROLY BANGURA MD This examination was interpreted and the report reviewed and electronically signed by: ROLY BANGURA MD on May 29 2021 8:54PM EST [id number] Normal [facility] COMPREHENSIVE PANELon 2020 Albumin [Mass/Vol] 3.9 g/dL Normal 3.4 - 5.0 [facility] Comment on above: Order Comment: PATIE NT FASTING Performed By: #### C MP #### [facility] [address] [place] [address] ALP [Catalytic activity/Vol] 71 U/L Normal 33 - 136 [facility] Comment on above: Order Comment: PATIE NT FASTING Performed By: #### C MP #### [facility] [address] [place] [address] ALT [Catalytic activity/Vol] 19 U/L Normal 10 - 52 [facility] Comment on above: Order Comment: PATIE NT FASTING Result Comment: Nasima ents treated with Sulfasalazine may generate falsely decreased results for ALT. Performed By: #### C MP #### [facility] [address] [place] [address] Anion gap [Moles/Vol] 13 mmol/L Normal 10 - 20 [facility] Comment on above: Order Comment: PATIE NT FASTING Performed By: #### C MP #### [facility] [address] [place] [address] AST [Catalytic activity/Vol] 20 U/L Normal 9 - 39 [facility] Comment on above: Order Comment: PATIE NT FASTING Performed By: #### C MP #### [facility] [address] [place] [address] Bilirubin [Mass/Vol] 0.6 mg/dL Normal 0.0 - 1.2 [facility] Comment on above: Order Comment: PATIE NT FASTING Performed By: #### C MP #### [facility] [address] [place] [address] Calcium [Mass/Vol] 9.0 mg/dL Normal 8.6 - 10.6 [facility] Comment on above: Order Comment: PATIE NT FASTING Performed By: #### C MP #### [facility] [address] [place] [address] Chloride [Moles/Vol] 103 mmol/L Normal 98 - 107 [facility] Comment on above: Order Comment: PATIE NT FASTING Performed By: #### C MP #### [facility] [address] [place] [address] Creatinine [Mass/Vol] 0.94 mg/dL Normal 0.50 - 1.30 [facility] Comment on above: Order Comment: PATIE NT FASTING Performed By: #### C MP #### [facility] [facility] [address] [place] [address] GFR- AM. >60 Normal >60 [facility] Comment on above: Order Comment: PATIE NT FASTING Result Comment: CALC ULATIONS OF ESTIMATED GFR ARE PERFORMED USING THE MDRD STUDY EQUATION FOR THE IDMS-TRACEABLE CREATININE METHODS. CLIN CHEM 2007;53:766-72 Performed By: #### C MP #### [facility] [address] [place] [address] GFR-NON AM. >60 Normal >60 [facility] Comment on above: Order Comment: PATIE NT FASTING Performed By: #### C MP #### [facility] [address] [place] [address] Glucose [Mass/Vol] 85 mg/dL Normal 74 - 99 [facility] Comment on above: Order Comment: PATIE NT FASTING Performed By: #### C MP #### [facility] [address] [place] [address] HCO3 (Bld) [Moles/Vol] 30 mmol/L Normal 21 - 32 [facility] Comment on above: Order Comment: PATIE NT FASTING Performed By: #### C MP #### [facility] [address] [place] [address] Potassium [Moles/Vol] 4.1 mmol/L Normal 3.5 - 5.3 [facility] Comment on above: Order Comment: PATIE NT FASTING Performed By: #### C MP #### [facility] [address] [place] [address] Protein [Mass/Vol] 6.6 g/dL Normal 6.4 - 8.2 [facility] Comment on above: Order Comment: PATIE NT FASTING Performed By: #### C MP #### [facility] [address] [place] [address] Sodium [Moles/Vol] 142 mmol/L Normal 136 - 145 [facility] Comment on above: Order Comment: PATIE NT FASTING Performed By: #### C MP #### [facility] [address] [place] [address] Urea nitrogen [Mass/Vol] 14 mg/dL Normal 6 - 23 [facility] Comment on above: Order Comment: PATIE NT FASTING Performed By: #### C MP #### [facility] [address] [place] [address] LIPID PANEL (CORONARY RISK 2 )on 09-03-2020 Cholesterol [Mass/Vol] 210 mg/dL High 0 - 199 [facility] Comment on above: Order Comment: [...] Performed By: #### L IPID #### [facility] [address] [place] [address] Cholesterol in HDL [Mass/Vol] 50.1 mg/dL Normal [facility] Comment on above: Order Comment: PATIE NT FASTING Result Comment: . AGE VERY LOW LOW NORMAL HIGH 0-19 Y < 35 < 40 40-45 ---- 20-24 Y ---- < 40 >45 ---- >24 Y ---- < 40 40-60 >60 . Performed By: #### L IPID #### [facility] [address] [place] [address] Cholesterol in LDL [Mass/Vol] 130 mg/dL High 0 - 99 [facility] Comment on above: Order Comment: PATIE NT FASTING Result Comment: . NEAR BORD AGE DESIRABLE OPTIMAL HIGH HIGH VERY HIGH 0-19 Y 0 - 109 --- 110-129 >/= 130 ---- 20-24 Y 0 - 119 --- 120-159 >/= 160 ---- >24 Y 0 - 99 100-129 130-159 160-189 >/=190 . Performed By: #### L IPID #### [facility] [address] [place] [address] Cholesterol in VLDL [Mass/Vol] 30 mg/dL Normal 0 - 40 [facility] Comment on above: Order Comment: PATIE NT FASTING Performed By: #### L IPID #### [facility] [address] [place] [address] Cholesterol.total/Chol esterol in HDL [Mass ratio] 4.2 {ratio} Normal [facility] Comment on above: Order Comment: PATIE NT FASTING Result Comment: REF VALUES DESIRABLE < 3.4 HIGH RISK > 5.0 Performed By: #### L IPID #### [facility] [address] [place] [address] Triglyceride [Mass/Vol] 152 mg/dL High 0 - 149 [facility] Comment on above: Order Comment: [...] Performed By: #### L IPID #### [facility] [address] [place] [address] PROSTATE SPEC.AG,SCREENon PROSTATE SPEC.AG,SCREEN 0.37 ng/mL Normal 0.00 - 4.00 [facility] Comment on above: Order Comment: PATIE NT FASTING Result Comment: The FDA requires that the method used for PSA assay be reported to the physician. Values obtained with different assay methods must not be used interchangeably. This test was performed at [facility] using the Siemens KatollCardley PSA method, which is a sandwich immunoassay using chemiluminescence for quantitation. The assay is approved for measurement of prostate-specific antigen (PSA) in serum and may be used in conjunction with a digital rectal examination in men 50 years and older as an aid in detection of prostate cancer. 3-Ekaxe-jwerijgsi inhibitors (e.g. Proscar, Finasteride, Avodart, Dutasteride and Elizabeth) for the treatment of BPH have been shown to lower PSA levels by an average of 50% after 6 months of treatment. Performed By: #### P SAS #### [facility] [address] [place] [address] TSH WITH REFLEX TO FREE T4 I F ABNORMALon 09-03-2020 TSH Qn 0.97 m[IU]/L Normal 0.44 - 3.98 [facility] Comment on above: Order Comment: PATIE NT FASTING Result Comment: TSH testing is performed using different testing methodology at [facility] than at other [facility]. Direct result comparisons should only be made within the same method. Performed By: #### T HYDS #### [facility] [address] [place] [address] CBC AND DIFFERENTIALon 09-02 % AUTOMATED IMMATURE GRAN 0.3 % Normal 0.0 - 0.9 [facility] Comment on above: Order Comment: PATIE NT FASTING Result Comment: [place] Granulocyte Count (IG) includes promyelocytes, myelocytes and metamyelocytes but does not include bands. Percent differential counts (%) should be interpreted in the context of the absolute cell counts (cells/L). Performed By: #### C BCDF #### [facility] [address] [place] [address] Basophils (Bld) [#/Vol] 0.07 10*3/uL Normal 0.00 - 0.10 [facility] Comment on above: Order Comment: PATIE NT FASTING Result Comment: Auto mated WBC differential has been confirmed by manual smear. Performed By: #### C BCDF #### [facility] [address] [place] [address] Basophils/100 WBC (Bld) 0.9 % Normal 0.0 - 2.0 [facility] Comment on above: Order Comment: PATIE NT FASTING Performed By: #### C BCDF #### [facility] [address] [place] [address] Eosinophils (Bld) [#/Vol] 0.21 10*3/uL Normal 0.00 - 0.70 [facility] Comment on above: Order Comment: PATIE NT FASTING Performed By: #### C BCDF #### [facility] [address] [place] [address] Eosinophils/100 WBC (Bld) 2.8 % Normal 0.0 - 6.0 [facility] Comment on above: Order Comment: PATIE NT FASTING Performed By: #### C BCDF #### [facility] [address] [place] [address] Lymphocytes (Bld) [#/Vol] 2.28 10*3/uL Normal 1.20 - 4.80 [facility] Comment on above: Order Comment: PATIE NT FASTING Performed By: #### C BCDF #### [place] [address] [place] [address] Lymphocytes/100 WBC (Bld) 30.9 % Normal 13.0 - 44.0 [facility] Comment on above: Order Comment: PATIE NT FASTING Performed By: #### C BCDF #### [facility] [address] [place] [address] Monocytes (Bld) [#/Vol] 0.50 10*3/uL Normal 0.10 - 1.00 [facility] Comment on above: Order Comment: PATIE NT FASTING Performed By: #### C BCDF #### [facility] [address] [place] [address] Monocytes/100 WBC (Bld) 6.8 % Normal 2.0 - 10.0 [facility] Comment on above: Order Comment: PATIE NT FASTING Performed By: #### C BCDF #### [facility] [address] [place] [address] Neutrophils (Bld) [#/Vol] 4.29 10*3/uL Normal 1.20 - 7.70 [facility] Comment on above: Order Comment: PATIE NT FASTING Performed By: #### C BCDF #### [facility] [address] [place] [address] Neutrophils/100 WBC (Bld) 58.3 % Normal 40.0 - 80.0 [facility] Comment on above: Order Comment: PATIE NT FASTING Performed By: #### C BCDF #### [facility] [address] [place] [address] Erythrocyte distribution width (RBC) [Ratio] 14.6 % High 11.5 - 14.5 [facility] Comment on above: Order Comment: PATIE NT FASTING Performed By: #### C BCDF #### [facility] [address] [place] [address] Hematocrit (Bld) [Volume fraction] 43.1 % Normal 41.0 - 52.0 [facility] Comment on above: Order Comment: PATIE NT FASTING Performed By: #### C BCDF #### [facility] [address] [place] [address] Hemoglobin (Bld) [Mass/Vol] 13.3 g/dL Low 13.5 - 17.5 [facility] Comment on above: Order Comment: PATIE NT FASTING Performed By: #### C BCDF #### [facility] [address] [place] [address] MCHC (RBC) [Mass/Vol] 30.9 g/dL Low 32.0 - 36.0 [facility] Comment on above: Order Comment: PATIE NT FASTING Performed By: #### C BCDF #### [facility] [address] [place] [address] MCV (RBC) [Entitic vol] 92 fL Normal 80 - 100 [facility] Comment on above: Order Comment: PATIE NT FASTING Performed By: #### C BCDF #### [facility] [address] [place] [address] NUCLEATED RBC 0.0 /100 WBC Normal 0.0-0.0 [facility] Comment on above: Order Comment: PATIE NT FASTING Performed By: #### C BCDF #### [facility] [address] [place] [address] Platelets (Bld) [#/Vol] 267 10*3/uL Normal 150 - 450 [facility] Comment on above: Order Comment: PATIE NT FASTING Performed By: #### C BCDF #### [facility] [address] [place] [address] RBC 4.69 x10E12/L Normal 4.50 - 5.90 [facility] Comment on above: Order Comment: PATIE NT FASTING Performed By: #### C BCDF #### [facility] [address] [place] [address] WBC (Bld) [#/Vol] 7.4 10*3/uL Normal 4.4 - 11.3 [facility] Comment on above: Order Comment: PATIE NT FASTING Performed By: #### C BCDF #### [facility] [address] [place] [address] RED CELL MORPHOLOGYon 2020 CHANELL CELLS Few Normal [facility] Comment on above: Order Comment: PATIE NT FASTING Performed By: #### M ORP2 #### [facility] [address] [place] [address] OVALOCYTES Few Normal [facility] Comment on above: Order Comment: PATIE NT FASTING Performed By: #### M ORP2 #### [facility] [address] [place] [address] POLYCHROMASIA Mild Normal [facility] Comment on above: Order Comment: PATIE NT FASTING Performed By: #### M ORP2 #### [facility] [address] [place] [address] RBC FRAGMENTS Few Normal [facility] Comment on above: Order Comment: PATIE NT FASTING Performed By: #### M ORP2 #### [facility] [address] [place] [address] RBC morphology finding Nom (Bld) See Below Normal [facility] Comment on above: Order Comment: PATIE NT FASTING Performed By: #### M ORP2 #### [facility] [address] [place] [address] No Panel Informationon 01-19 76 1 MP-Cardiolo [...] [place] Work Phone: [email or web address] ?RetrieveTestByDateTime?P [email or web address]&Date=1 09-13-2019&Time=15%3a11%3a 03%3a00&TestType=ECG&Site =1&OutputType=PDF&Ext=PDF MP-Cardiolo gy-[place] 140 [place] [...] Eosinophils (Bld) [#/Vol] 0.18 {x10E9/L} See Below [facility] Work Phone: Comment on above: Reference Range: 0.0 0 - 0.70 Eosinophils/100 WBC (Bld) 2.5 % 0.0 - 6.0 [facility] Work Phone: Erythrocyte distribution width (RBC) [Ratio] 13.7 % See Below [facility] Work Phone: Comment on above: Reference Range: 11. 5 - 14.5 Hematocrit (Bld) [Volume fraction] 45.5 % See Below [facility] Work Phone: Comment on above: Reference Range: 41. 0 - 52.0 Hemoglobin (Bld) [Mass/Vol] 14.0 g/dL See Below [facility] Work Phone: Comment on above: Reference Range: 13. 5 - 17.5 Lymphocytes (Bld) [#/Vol] 2.15 {x10E9/L} See Below [facility] Work Phone: Comment on above: Reference Range: 1.2 0 - 4.80 Lymphocytes/100 WBC (Bld) 29.9 % See Below [facility] Work Phone: Comment on above: Reference Range: 13. 0 - 44.0 MCHC (RBC) [Mass/Vol] 30.8 g/dL below low threshold See Below [facility] Work Phone: Comment on above: Reference Range: 32. 0 - 36.0 MCV (RBC) [Entitic vol] 94 fL 80 - 100 [facility] Work Phone: Monocytes (Bld) [#/Vol] 0.49 {x10E9/L} See Below [facility] Work Phone: Comment on above: Reference Range: 0.1 0 - 1.00 Monocytes/100 WBC (Bld) 6.8 % 2.0 - 10.0 [facility] Work Phone: Neutrophils (Bld) [#/Vol] 4.30 {x10E9/L} See Below [facility] Work Phone: Comment on above: Reference Range: 1.2 0 - 7.70 Neutrophils/100 WBC (Bld) 59.9 % See Below [facility] Physician [facility] Work Phone: Comment on above: Reference Range: 40. 0 - 80.0 Platelets (Bld) [#/Vol] 270 {x10E9/L} 150 - 450 [facility] Work Phone: RBC (Bld) [#/Vol] 4.85 {x10E12/L} See Below [facility] Physician [facility] Work Phone: Comment on above: Reference Range: 4.5 0 - 5.90 WBC (Bld) [#/Vol] 0.0 {/100_WBC} 0.0-0.0 [facility] Work Phone: WBC (Bld) [#/Vol] 7.2 {x10E9/L} 4.4 - 11.3 [facility] Physician [facility] Work Phone: Complete Blood Count + Differential 0.1 % 0.0 - 0.9 [facility] Physician [facility] Work Phone: Comment on above: Immature Granulocyte Count (IG) includes promyelocytes, myelocytes and metamyelocytes but does not include bands. Percent differential counts (%) should be interpreted in the context of the absolute cell counts (cells/L). Lipid Panelon 11-06-2019 Cholesterol [Mass/Vol] 181 mg/dL 0 - 199 [facility] Physician [facility] Work Phone: Comment on above: . [...] dosing. Cholesterol in HDL [Mass/Vol] 52.1 mg/dL [facility] Physician [facility] Work Phone: Comment on above: . AGE VERY LOW LOW N ORMAL HIGH 0-19 Y < 35 < 40 40-45 ---- 20-24 Y ---- < 40 >45 ---- >24 Y ---- < 40 40-60 >60. Cholesterol in LDL [Mass/Vol] 97 mg/dL 0 - 99 [facility] Work Phone: Comment on above: . NEAR BORD AGE IZABELLA RABLE OPTIMAL HIGH HIGH VERY HIGH 0-19 Y 0 - 109 --- 110-129 >/= 130 ---- 20-24 Y 0 - 119 --- 120-159 >/= 160 ---- >24 Y 0 - 99 100-129 130-159 160-189 >/=190. Cholesterol.total/Chol esterol in HDL [Mass ratio] 3.5 {ratio} [facility] Work Phone: Comment on above: REF VALUESDESIRABLE < 3.4HIGH RISK > 5.0 Triglyceride [Mass/Vol] 158 mg/dL above high threshold 0 - 149 [facility] Work Phone: Comment on above: [...] Lipid Panel 32 mg/dL 0 - 40 [facility] Work Phone: Metabolic Panelon 11-06-2019 ALP [Catalytic activity/Vol] 70 U/L 33 - 136 [facility] Physician [facility] Work Phone: Anion gap [Moles/Vol] 13 mmol/L 10 - 20 [facility] Work Phone: Bilirubin [Mass/Vol] 0.6 mg/dL 0.0 - 1.2 [facility] Physician [facility] Work Phone: Calcium [Mass/Vol] 9.4 mg/dL 8.6 - 10.6 [facility] Work Phone: Chloride [Moles/Vol] 99 mmol/L 98 - 107 [facility] Work Phone: CO2 [Moles/Vol] 30 mmol/L 21 - 32 [facility] Physician [facility] Work Phone: Creatinine [Mass/Vol] 0.87 mg/dL See Below [facility] Physician [facility] Work Phone: Comment on above: Reference Range: 0.5 0 - 1.30 Glucose [Mass/Vol] 89 mg/dL 74 - 99 [facility] Physician [facility] Work Phone: Potassium [Moles/Vol] 4.3 mmol/L 3.5 - 5.3 [facility] Work Phone: Protein [Mass/Vol] 7.3 g/dL 6.4 - 8.2 [facility] Work Phone: Sodium [Moles/Vol] 138 mmol/L 136 - 145 [facility] Work Phone: Urea nitrogen [Mass/Vol] 14 mg/dL 6 - 23 [facility] Work Phone: Otheron 11-06-2019 Albumin BCP dye [Mass/Vol] 4.4 g/dL 3.4 - 5.0 [facility] Work Phone: ALT With P-5'-P [Catalytic activity/Vol] 11 U/L 10 - 52 [facility] Work Phone: Comment on above: Patients treated wit h Sulfasalazine may generate falsely decreased results for ALT. AST With P-5'-P [Catalytic activity/Vol] 17 U/L 9 - 39 [facility] Work Phone: >60 >60 [facility] Work Phone: Comment on above: CALCULATIONS OF LUZMARIA MATED GFR ARE PERFORMED USING THE MDRD STUDY EQUATION FOR THE IDMS-TRACEABLE CREATININE METHODS. CLIN CHEM 2007;53:766-72 Culture, urine Bacteria identified Cx Nom (U) Mixed Gram Pos & Gram Neg Org [facility] Work Phone: Bacteria identified Cx Nom (U) Klebsiella pneumoniae sp pneum [facility] Work Phone: Vital Signs Date Time Vital Sign Value Performing Clinician Facility 09-13-2023 11:48-0400 Body height 175.3 cm Rebecca Buck MD Work Phone: [facility] 09-13-2023 11:48-0400 Body mass index (BMI) [Ratio] 25.84 kg/m2 Rebecca Buck MD Work Phone: [facility] 09-13-2023 11:48-0400 Body weight 79.38 kg Rebecca Buck MD Work Phone: [facility] 08-13-2023 09:56-0400 Body height 175.3 cm Rebecca Buck MD Work Phone: [facility] 08-13-2023 09:56-0400 Body mass index (BMI) [Ratio] 25.84 kg/m2 Rebecca Buck MD Work Phone: [facility] 08-13-2023 09:56-0400 Body weight 79.38 kg Rebecca Buck MD Work Phone: [facility] 03-02-2022 18:49-0400 Body temperature 98.01 [degF] Lanette Munguia DO Work Phone: [facility] 03-02-2022 18:49-0400 Diastolic blood pressure 72 mm[Hg] [facility] 03-02-2022 18:49-0400 Heart rate 94 /min Lanette Munguia DO [facility] 03-02-2022 18:49-0400 Respiratory rate 18 /min Lanette Munguia DO [facility] 03-02-2022 18:49-0400 SaO2% (BldA) [Mass fraction] 98 % Lanette Munguia DO Work Phone: [facility] 03-02-2022 18:49-0400 Systolic blood pressure 104 mm[Hg] Lanette Munguia DO Work Phone: [facility] 03-02-2022 11:55-0400 Body height 175.3 cm Lanette Munguia DO Work Phone: [facility] 03-02-2022 11:55-0400 Body mass index (BMI) [Ratio] 25.84 kg/m2 Lanette Munguia DO Work Phone: [facility] 03-02-2022 11:55-0400 Body weight 79.38 kg Lanette Munguia DO Work Phone: [facility] 12-22-2021 02:08-0400 Diastolic blood pressure 67 mm[Hg] Sharon Olivia MD Work Phone: [facility] 12-22-2021 02:08-0400 Heart rate 77 /min Sharon Olivia MD [facility] 12-22-2021 02:08-0400 Respiratory rate 16 /min Sharon Olivia MD [facility] 12-22-2021 02:08-0400 SaO2% (BldA) [Mass fraction] [...] [degF] Lisa Miguel Angel DO Work Phone: [facility] 10-29-2021 07:38-0400 Diastolic blood pressure 79 mm[Hg] Lisa Miguel Angel DO Work Phone: [facility] 10-29-2021 07:38-0400 Heart rate 80 /min Lisa Miguel Angel DO Work Phone: [facility] 10-29-2021 07:38-0400 Respiratory rate 18 /min Lisa Miguel Angel DO Work Phone: [facility] 10-29-2021 07:38-0400 SaO2% (BldA) [Mass fraction] 96 % Lisa Miguel Angel DO Work Phone: [facility] 10-29-2021 07:38-0400 Systolic blood pressure 123 mm[Hg] Lisa Miguel Angel DO Work Phone: [facility] 10-25-2021 13:55-0400 Body height 170.2 cm Lisa Miguel Angel DO Work Phone: [facility] 10-21-2021 00:57-0400 Body mass index (BMI) [Ratio] 37.58 kg/m2 Lisa Miguel Angel DO Work Phone: [facility] 10-21-2021 00:57-0400 Body weight 108.86 kg Lisa Miguel Angel DO Work Phone: [facility] 07-13-2020 13:21-0500 BMI (Body Mass Index) 40.47 kg/m2 Monika Staley [facility] Work Phone: 07-13-2020 13:21-0500 Body Temperature 98 [degF] Monika Staley [facility] Work Phone: 07-13-2020 13:21-0500 [...] 04-13-2020 15:33-[address] [facility] Work Phone: Comment on above: Pain Scale 01-20-2020 16:39-0400 Body height 175.26 cm Monika Staley MD MP-Cardiolog y-Med russ [address] [place] Work Phone: 01-20-2020 16:39-0400 Body mass index (BMI) [Ratio] 39.28 kg/m2 Monika Staley MD FO-Vjgsyamigq-Ujn russ [address] [place] Work Phone: 01-20-2020 16:39-0400 Body surface area Derived from formula 2.33 m2 Monika Staley MD KA-Radtrenwxl-Qdu russ [address] [place] Work Phone: 01-20-2020 16:39-0400 Body weight 120.66 kg Monika Staley MD MP-Cardiolog y-Med [facility] [address] [place] Work Phone: 01-20-2020 16:39-0400 Diastolic blood pressure 84 mm[Hg] Monika Staley MD TW-Noqtwhgcya-Szn russ [address] [place] Work Phone: Comment on above: Location: RLE; Position: Sitting 01-20-2020 16:39-0400 Heart rate 80 /min Monika Staley MD, MP-Cardiolog y-Med [facility] [address] [place] Work Phone: 01-20-2020 16:39-0400 SaO2% (BldA) [Mass fraction] 100 % Monika Staley MD PN-Krbgmletbn-Lzj russ [address] [place] Work Phone: Comment on above: Source: 01-20-2020 16:39-0400 Systolic blood pressure 144 mm[Hg] Monika Staley MD FE-Sepvwurbis-Lmc russ [address] [place] Work Phone: Comment on [...] Start: 03-16-2025 ambulatory Carlos Cavazos OLS Faci lity:[facility] Start: 03-13-2025 ambulatory Carlos Quickros OLS Faci lity:[facility] Start: [facility] Start: 03-11-2025 ambulatory Carlos Quickros OLS Faci lity:[facility] Start: 03-09-2025 ambulatory Mahaveer kka flash OLS Facility:[facility] Start: 03-05-2025 ambulatory [facility] Start: 03-02-2025 ambulatory Peter Katsaros OLS Faci lity:[facility] Start: 02-26-2025 ambulatory Mahaveer kka flash OLS Facility:[facility] Start: 02-23-2025 [facility] Start: 02-19-2025 ambulatory Karon muellera OLS Facility:[facility] Start: 02-16-2025 End: 02-16-2025 ambulatory Karon Farmera OLS Facility:[facility] Start: 02-12-2025 [facility] Start: 02-12-2025 End: 02-12-2025 ambulatory Karon Farmera OLS Facility:[facility] Start: 02-09-2025 Registered Referred Carlos Cavazos - [facility] [employer] Start: 02-09-2025 ambulatory Carlos Cavazos OLS Faci lity:[facility] Start: 02-05-2025 Registered [facility] Start: 02-05-2025 End: 02-05-2025 ambulatory Karon Farmera OLS Facility:[facility] Start: 02-02-2025 Registered [facility] Start: 02-02-2025 End: 02-02-2025 ambulatory Karon Farmera OLS Facility:[facility] Start: 01-29-2025 Registered [facility] Start: 01-29-2025 End: 01-29-2025 ambulatory Karon Farmera OLS Facility:[facility] Start: 01-26-2025 Registered [facility] Start: 01-26-2025 End: 01-26-2025 ambulatory Karon Delacruzlla OLS Facility:[facility] Start: 01-22-2025 Registered [facility] Start: 01-22-2025 End: 01-22-2025 ambulatory Carla[place]oe Delacruzlla OLS Facility:[facility] Start: 01-19-2025 Registered Referred Carlos Cavazos - [facility] [employer] Start: 01-19-2025 End: 01-19-2025 ambulatory Carlos Cavazos OLS Facility:[facility] Start: 01-15-2025 Registered Referred Karon casillas MD -[facility] Start: 01-15-2025 End: 01-15-2025 ambulatory [facility] Facility:[facility] Start: 01-12-2025 Registered Referred Karon casillas MD -[facility] Start: 01-12-2025 End: 01-12-2025 ambulatory [facility] Facility:[facility] Start: 01-08-2025 Registered Referred Karon casillas MD -[facility] Start: 01-08-2025 End: 01-08-2025 ambulatory [facility] Facility:[facility] Start: 01-06-2025 Registered Referred Karon casillas MD -[facility] Start: 01-06-2025 End: 01-06-2025 ambulatory [facility] Facility:[facility] Start: 01-01-2025 End: 01-01-[address] Monika Staley MD Work Phone: -[facility] [employer] Start: 01-01-2025 End: 01-01-2025 Departed Referred Karon Corrales MD -[facility] Start: 01-01-2025 Registered Referred Karon casillas MD -[facility] Start: 01-01-2025 End: 01-01-2025 [facility]ulatory [facility] Facility[facility] Start: 12-29-2024 Registered Referred Carlos Cavazos - [facility] Start: 12-29-2024 End: 12-29-2024 ambulatory Carlos Cavazos OLS Facility:[facility] Start: 12-26-2024 End: 12-26-[address] Monika Staley MD Work Phone: -[facility] [employer] Start: 12-26-2024 End: 12-26-2024 Departed Referred Karon Corrales MD -[facility] Start: 12-26-2024 Registered Referred Karon casillas MD -[facility] Start: 12-26-2024 End: 12-26-2024 ambulatory Mahaveer Mukkamalla OLS Facility:[facility] Start: 12-25-2024 Registered Referred Karon casillas MD -[facility] Start: 12-24-2024 End: 12-25-2024 ambulatory Mahaveer Mukkamalla OLS Facility:[facility] Start: 12-24-2024 Registered Referred Carlos Lópezsaros - [facility] Start: 12-22-2024 ambulatory [facility] OLS Facility:[facility] Start: 12-22-2024 Registered Referred Karon casillas MD -[facility] Start: 12-18-2024 Registered Referred Karon casillas MD -[facility] Start: 12-18-2024 End: 12-18-2024 ambulatory Carlaaveer Princeamalla OLS Facility:[facility] Start: 12-15-2024 [facility] Start: 12-15-2024 Registered Referred Karon casillas MD -[facility] Start: 12-11-2024 Registered Referred Carlos Cavazos - [facility] Start: 12-11-2024 End: 12-11-2024 ambulatory Carlos Maribelkameron OLS Facility:[facility] Start: 12-08-2024 Registered Referred Karon casillas MD -[facility] Start: 12-08-2024 End: 12-08-2024 ambulatory Mahaveer Mukkamalla OLS Facility:[facility] Start: 12-04-2024 Registered Referred Karon casillas MD -[facility] Start: 12-04-2024 End: 12-04-2024 ambulatory Mahaveer kkamalla OLS Facility:[facility] Start: 12-02-2024 [facility] Facility[facility] Start: 12-02-2024 Registered Referred Karon casillas MD -[facility] Start: 12-01-2024 ambulatory Carlos NOVAK Faci lity:[facility] Start: 12-01-2024 Registered Referred Carlos Cavazos - [facility] Start: 11-28-2024 Registered Referred Carlos Cavazos - [facility] Start: 11-28-2024 End: 11-28-2024 ambulatory Carlos Cavazos OLS Facility:[facility] Start: 11-27-2024 Registered Referred Karon casillas MD -[facility] Start: 11-27-2024 End: 11-27-2024 ambulatory Karon inga OLS Facility:[facility] Start: 11-24-2024 [facility] Start: 11-24-2024 Registered Referred Karon casillas MD -[facility] Start: 11-20-2024 Registered Referred Karon casillas MD -[facility] Start: 11-20-2024 End: 11-20-2024 ambulatory Karon NOVAK Facility:[facility] Start: 11-17-2024 ambulatory Shiela Luís Facili ty:[facility] Start: 11-17-2024 Registered Referred Karon casillas MD -[facility] Start: 11-13-2024 ambulatory Shilea Luís Facili ty:[facility] Start: 11-13-2024 Registered Referred Karon casillas MD -[facility] Start: 11-10-2024 [facility]ulatory [facility] Facility:[facility] Start: 11-10-2024 Registered Referred Karon casillas MD -[facility] Start: 11-06-2024 Registered Referred Karon casillas MD -[facility] Start: 11-06-2024 End: 11-06-2024 ambulatory Karon Corrales OLS Facility:[facility] Start: 11-03-2024 End: 11-03-[address] Monika Staley MD Work Phone: -[facility] [employer] Start: 11-03-2024 End: 11-03-2024 Departed Referred Carlos Maribelkameron -[facility] [employer] Start: 11-03-2024 Registered Referred Carlos Maribelkameron - [facility] [employer] Start: 11-03-2024 End: 11-03-2024 ambulatory Carlos Cavazos OLS Facility:[facility] Start: 10-30-2024 End: 10-30-[address] Monika Staley MD Work Phone: -[facility] [employer] Start: 10-30-2024 End: 10-30-2024 Departed Referred Karon Corrales MD -[facility] [employer] Start: 10-30-2024 Registered Referred Karon casillas MD -[facility] [employer] Start: 10-30-2024 End: 10-30-2024 ambulatory Monika Staley Facility:[facility] Start: 10-27-2024 Registered Referred Karon casillas MD -[facility] [employer] Start: 10-27-2024 End: 10-27-2024 ambulatory Karon NOVAK Facility:[facility] Start: 10-23-2024 Registered Referred Karon casillas MD -[facility] [employer] Start: 10-23-2024 End: 10-23-2024 ambulatory Monika Staley Facility:[facility] Start: 10-20-2024 End: 10-20-[address] Monika Staley MD Work Phone: -[facility] [employer] Start: 10-20-2024 End: 10-20-2024 Departed Referred Karon Corrales MD -[facility] Start: 10-20-2024 Registered Referred Karon casillas MD -[facility] [employer] Start: 10-20-2024 End: 10-20-2024 ambulatory Karon Corrales OLS Facility:[facility] Start: 10-16-2024 ambulatory Monika Horner Luís Facili ty:[facility] Start: 10-16-2024 Registered Referred Karon casillas MD -[facility] Start: 10-13-2024 ambulatory Carlos Cavazos OLS Faci lity:[facility] Start: 10-13-2024 Registered Referred Carlos Cavazos - [facility] Start: 10-09-2024 ambulatory Shiela Luís Facili ty:[facility] Start: 10-09-2024 Registered Referred Karon casillas MD -[facility] Start: 10-06-2024 ambulatory Carlos Cavazos OLS Faci lity:[facility] Start: 10-06-2024 Registered Referred Carlos Cavazos - [facility] Start: 10-02-2024 ambulatory Shiela Luís Facili ty:[facility] Start: 10-02-2024 Registered Referred Karon casillas MD -[facility] Start: 09-30-2024 End: 09-30-[address] Monika Staley MD Work Phone: [facility] Work Phone: Start: 09-30-2024 End: 09-30-2024 Departed Referred Karon Corrales MD -[facility] [employer] Start: 09-30-2024 Registered Referred Karon casillas MD -[facility] Start: 09-30-2024 End: 09-30-2024 ambulatory Karon NOVAK Facility:[facility] Start: 09-25-2024 ambulatory Karon vidales OLS Facility:[facility] Start: 09-25-2024 [facility] [employer] Start: 09-22-2024 End: 09-22-[address] Monika Staley MD Work Phone: -[facility] [employer] Start: 09-22-2024 End: 09-22-2024 Departed Referred Karon Corrales MD -[facility] Start: 09-22-2024 Registered Referred Karon casillas MD -[facility] Start: 09-22-2024 End: 09-22-2024 ambulatory Karon NOVAK Facility:[facility] Start: 09-18-2024 End: 09-18-[address] Monika Staley MD Work Phone: -[facility] Start: 09-18-2024 End: 09-18-2024 Departed Referred Karon Corrales MD -[facility] Start: 09-18-2024 Registered Referred Kaorn casillas MD -[facility] Start: 09-18-2024 End: 09-18-2024 ambulatory Karon Corrales OLS Facility:[facility] Start: 09-15-2024 End: 09-15-[address] Monika Staley MD Work Phone: [facility] Work Phone: Start: 09-15-2024 End: 09-15-2024 Departed Referred Carlos Cavazos -[facility] Start: 09-15-2024 Registered Referred Carlos Cavazos - [facility] Start: 09-15-2024 End: 09-15-2024 ambulatory Carlos Cavazos OLS Facility:[facility] Start: 09-11-2024 ambulatory Karon vidales OLS Facility:[facility] Start: 09-11-2024 Registered Referred Karon casillas MD -[facility] [employer] Start: 09-08-2024 End: 09-08-[address] Monika Staley MD Work Phone: [facility] Work Phone: Start: 09-08-2024 End: 09-08-2024 Departed Referred Karon Corrales MD -[facility] Start: 09-08-2024 Registered Referred Karon casillas MD -[facility] Start: 09-08-2024 End: 09-08-2024 ambulatory Karon NOVAK Facility:[facility] Start: 09-04-2024 End: 09-04-2024 Departed Referred Carlos Maribelsaros -[facility] Start: 09-04-2024 Registered Referred Carlos Maribelsaros - [facility] Start: 09-04-2024 End: 09-04-2024 ambulatory Carlos NOVAK Facility:[facility] Start: 09-01-2024 End: 09-01-[address] Monika Staley MD Work Phone: [facility] Work Phone: Start: 09-01-2024 End: 09-01-2024 Departed Referred Carlos Lópezsaros -[facility] Start: 09-01-2024 Registered Referred Carlos Maribelsaros - [facility] Start: 09-01-2024 End: 09-01-2024 ambulatory Carlos NOVAK Facility:[facility] Start: 08-28-2024 End: 08-28-[address] Moniak Staley MD Work Phone: [facility] Work Phone: Start: 08-28-2024 End: 08-28-2024 Departed Referred Carlos Lópezsaros -[facility] Start: 08-28-2024 Registered Referred Carlos Lópezsaros - [facility] Start: 08-28-2024 End: 08-28-2024 ambulatory Carlos NOVAK Facility:[facility] Start: 08-25-2024 End: 08-25-[address] Monika Staley MD Work Phone: [facility] Work Phone: Start: 08-25-2024 End: 08-25-2024 Departed Referred Karon Corrales MD -[facility] Start: 08-25-2024 Registered Referred Karon casillas MD -[facility] Start: 08-25-2024 End: 08-25-2024 ambulatory Carlaamber Corrales OLS Facility:[facility] Start: 08-21-2024 End: 08-21-[address] Monika Staley MD Work Phone: [facility] Work Phone: Start: 08-21-2024 End: 08-21-2024 Departed Referred Karon Corrales MD -[facility] Start: 08-21-2024 Registered Referred Karon casillas MD -[facility] Start: 08-21-2024 End: 08-21-2024 ambulatory Carlaamber NOVAK Facility:[facility] Start: 08-18-2024 End: 08-18-[address] Monika Staley MD Work Phone: [facility] Work Phone: Start: 08-18-2024 End: 08-18-2024 Departed Referred Karon Corrales MD -[facility] [employer] Start: 08-18-2024 Registered Referred Karon casillas MD -[facility] [employer] Start: 08-18-2024 End: 08-18-2024 ambulatory Carlaamber Corrales OLS Facility:[facility] Start: 08-14-2024 End: 08-14-[address] Moniak Staley MD Work Phone: [facility] Work Phone: Start: 08-14-2024 End: 08-14-2024 Departed Referred Karon Corrales MD -[facility] [employer] Start: 08-14-2024 Registered Referred Karon casillas MD -[facility] [employer] Start: 08-14-2024 End: 08-14-2024 ambulatory Karon NOVAK Facility:[facility] Start: 08-11-2024 End: 08-11-2024 Departed Referred Karon Corrales MD -[facility] Start: 08-11-2024 Registered Referred Karon csaillas MD -[facility] Start: 08-11-2024 End: 08-11-2024 ambulatory Karon NOVAK Facility:[facility] Start: 08-07-2024 End: 08-07-2024 Departed Referred Carlos Lópezsaviri -[facility] Start: 08-07-2024 Registered Referred Carlos Lópezsaviri - [facility] Start: 08-07-2024 End: 08-07-2024 ambulatory Carlos Cavazos OLS Facility:[facility] Start: 08-04-2024 End: 08-04-[address] Monika Staley MD Work Phone: [facility] Work Phone: Start: 08-04-2024 End: 08-04-2024 Departed Referred Carlos Lópezsaviri -[facility] Start: 08-04-2024 Registered Referred Carlos Lópezsaros - [facility] Start: 08-04-2024 End: 08-04-2024 ambulatory Carlos NOVAK Facility:[facility] Start: 07-31-2024 End: 07-31-[address] Monika Staley MD Work Phone: [facility] Work Phone: Start: 07-31-2024 End: 07-31-2024 Departed Referred Karon Corrales MD -[facility] Start: 07-31-2024 Registered Referred Karon casillas MD -[facility] Start: 07-31-2024 End: 07-31-2024 ambulatory Karon NOVAK Facility:[facility] Start: 07-28-2024 End: 07-28-[address] Monika Staley MD Work Phone: [facility] Work Phone: Start: 07-28-2024 End: 07-28-2024 Departed Referred Karon Corrales MD -[facility] [employer] Start: 07-28-2024 Registered Referred Karon casillas MD -[facility] Start: 07-28-2024 End: 07-28-2024 ambulatory Karon NOVAK Facility:[facility] Start: 07-25-2024 End: 07-25-[address] Monika Staley MD Work Phone: [facility] Work Phone: Start: 07-25-2024 End: 07-25-2024 Departed Referred Carlos Cavazos -[facility] [employer] Start: 07-25-2024 Registered Referred Carlos Reeder [facility] Start: 07-24-2024 End: 07-25-[address] Monika Staley MD Work Phone: [facility] Work Phone: Start: 07-24-2024 End: 07-24-2024 Departed Referred Karon Corrales MD -[facility] [employer] Start: 07-24-2024 Registered Referred Karon casillas MD -[facility] [employer] Start: 07-24-2024 End: 07-24-2024 ambulatory Karon NOVAK Facility:[facility] Start: 07-21-2024 End: 07-21-[address] Monika Staley MD Work Phone: [facility] Work Phone: Start: 07-21-2024 End: 07-21-2024 Departed Referred Karon Corrales MD -[facility] [employer] Start: 07-21-2024 Registered Referred Karon casillas MD -[facility] Start: 07-21-2024 End: 07-21-2024 ambulatory Karon NOVAK Facility:[facility] Start: 07-17-2024 End: 07-17-[address] Monika Staley MD Work Phone: [facility] Work Phone: Start: 07-17-2024 End: 07-17-2024 Departed Referred Karon Corrales MD -[facility] Start: 07-17-2024 Registered Referred Karon casillas MD -[facility] Start: 07-17-2024 End: 07-17-2024 ambulatory Karon NOVAK Facility:[facility] Start: 07-14-2024 End: 07-14-[address] Monika Staley MD Work Phone: [facility] Work Phone: Start: 07-14-2024 End: 07-14-2024 Departed Referred Carlos Cavazos -[facility] Start: 07-14-2024 Registered Referred Carlos Lópezsaros - [facility] Start: 07-14-2024 End: 07-14-2024 ambulatory Carlos Cavazos OLS Facility:[facility] Start: 07-11-2024 End: 07-11-[address] Monika Staley MD Work Phone: [facility] Work Phone: Start: 07-11-2024 End: 07-11-2024 Departed Referred Carlos Lópezsaros -[facility] Start: 07-11-2024 Registered Referred Carlos Lópezsaros - [facility] Start: 07-11-2024 End: 07-11-2024 ambulatory Carlos Cavazos OLS Facility:[facility] Start: 07-07-2024 End: 07-07-[address] Monika Staley MD Work Phone: [facility] Work Phone: Start: 07-07-2024 End: 07-07-2024 Departed Referred Karon Corrales MD -[facility] Start: 07-07-2024 [facility] Start: 07-07-[facility]24 End: 07-07-2024 ambulatory Karon NOVAK Facility:[facility] Start: 07-03-2024 End: 07-03-[address] Monika Staley MD Work Phone: [facility] Work Phone: Start: 07-03-2024 End: 07-03-2024 Departed Referred Kvng Crisostomo MD -[facility] Start: 07-03-2024 Registered Referred Kvng Crisostomo MD -[facility] Start: 07-03-2024 End: 07-03-2024 ambulatory Kvng NOVAK Facility:[facility] Start: 06-30-2024 End: 06-30-[address] Monika Stalye MD Work Phone: [facility] Work Phone: Start: 06-30-2024 End: 06-30-2024 Departed Referred Kvng Crisostomo MD -[facility] Start: 06-30-2024 Registered Referred Kvng Crisostomo MD -[facility] Start: 06-30-2024 End: 06-30-2024 ambulatory Kvng NOVAK Facility:[facility] Start: 06-26-2024 ambulatory Kvng NOVAK Fac ility:[facility] Start: 06-26-2024 Registered Referred Kvng Crisostomo MD -[facility] Start: 06-23-2024 End: 06-23-[address] Monika Staley MD Work Phone: [facility] Work Phone: Start: 06-23-2024 End: 06-23-2024 Departed Referred Carlos Aceved[facility] [employer] Start: 06-23-2024 Registered Referred Carlos Cavazos - [facility] Start: 06-23-2024 End: 06-23-2024 ambulatory Carlos NOVAK Facility:[facility] Start: 06-19-2024 End: 06-19-[address] Monika Staley MD Work Phone: [facility] Work Phone: Start: 06-19-2024 End: 06-19-2024 Departed Referred Kvng Crisostomo MD -[facility] [employer] Start: 06-19-2024 Registered Referred Kvng Crisostomo MD -[facility] [employer] Start: 06-19-2024 End: 06-19-2024 ambulatory Monika Staley Facility:[facility] Start: 06-16-2024 End: 06-16-[address] Monika Staley MD Work Phone: [facility] Work Phone: Start: 06-16-2024 End: 06-16-2024 Departed Referred Kvng Crisostomo MD -[facility] [employer] Start: 06-16-2024 Registered Referred Kvng Crisostomo MD -[facility] [employer] Start: 06-16-2024 End: 06-16-2024 ambulatory Monika Staley Facility:[facility] Start: 06-12-2024 End: 06-12-[address] Monika Staley MD Work Phone: [facility] Work Phone: Start: 06-12-2024 End: 06-12-2024 Departed Referred Kvng Crisostomo MD -[facility] [employer] Start: 06-12-2024 Registered Referred Kvng Crisostomo MD -[facility] [employer] Start: 06-12-2024 End: 06-12-2024 ambulatory Kvng NOVAK Facility:[facility] Start: 06-09-2024 End: 06-09-[address] Monika Staley MD Work Phone: [facility] Work Phone: Start: 06-09-2024 End: 06-09-2024 Departed Referred Carlos Cavazos -[facility] Start: 06-09-2024 Registered Referred Carlos Cavazos - [facility] Start: 06-09-2024 End: 06-09-2024 ambulatory Monika Staley Facility:[facility] Start: 06-05-2024 End: 06-05-[address] Monika Staley MD Work Phone: [facility] Work Phone: Start: 06-05-2024 End: 06-05-2024 Departed Referred Kvng Crisostomo MD -[facility] [employer] Start: 06-05-2024 End: 06-05-2024 ambulatory Kvng NOVAK Facility:[facility] Start: 06-02-2024 End: 06-02-[address] Monika Staley MD Work Phone: [facility] Work Phone: Start: 06-02-2024 End: 06-02-2024 Departed Referred Kvng Crisostomo MD -[facility] [employer] Start: 06-02-2024 Registered Referred Kvng Crisostomo MD -[facility] [employer] Start: 06-02-2024 End: 06-02-2024 ambulatory Kvng NOVAK Facility:[facility] Start: 05-29-2024 End: 05-29-[address] Monika Staley MD Work Phone: [facility] Work Phone: Start: 05-29-2024 End: 05-29-2024 Departed Referred Kvng Crisostomo MD -[facility] [employer] Start: 05-29-2024 Registered Referred Kvng Crisostomo MD -[facility] [employer] Start: 05-29-2024 End: 05-29-2024 ambulatory Kvng NOVAK Facility:[facility] Start: 05-26-2024 End: 05-26-[address] Monika Staley MD Work Phone: [facility] Work Phone: Start: 05-26-2024 End: 05-26-2024 Departed Referred Carlos Cavazos -[facility] Start: 05-26-2024 Registered Referred Carlos Cavazos - [facility] Start: 05-26-2024 End: 05-26-2024 ambulatory Carlos NOVAK Facility:[facility] Start: 05-22-2024 ambulatory Kvng NOVAK Fac ility:[facility] Start: 05-22-2024 Registered [facility] Start: 05-20-2024 End: 05-20-2024 Departed [facility] [employer] Start: 05-19-2024 End: 05-20-2024 ambulatory Kvng NOVAK Facility:[facility] Start: 05-19-2024 Registered [facility] Start: 05-15-2024 End: 05-15-2024 Dep[facility]ed [facility] [employer] Start: 05-15-2024 End: 05-15-2024 ambulatory Kvng NOVAK Facility:[facility] Start: 05-12-2024 End: 05-12-2024 [facility]ed [facility] Start: 05-12-2024 End: 05-12-2024 ambulatory Carlos NOVAK Facility:[facility] Start: 05-09-2024 End: 05-09-2024 [facility] Start: 05-09-2024 End: 05-09-2024 ambulatory Kvng NOVAK Facility:[facility] Start: 05-08-2024 End: 05-08-2024 Departed Referred Babbaljeet Crisostomo MD -[facility] Start: 05-08-2024 End: 05-08-2024 ambulatory Elizabethmilton Andressa NOVAK Facility:[facility] Start: 05-05-2024 End: 05-05-2024 Departed Referred Kvng Crisostomo MD -[facility] Start: 05-05-2024 End: 05-05-2024 ambulatory Kvng NOVAK Facility:[facility] Start: 05-01-2024 End: 05-01-2024 Departed Referred Kvng Crisostomo MD -[facility] Start: 05-01-2024 End: 05-01-2024 ambulatory Kvng NOVAK Facility:[facility] Start: 04-28-2024 End: 04-28-2024 Departed Referred Carlos Cavazos -[facility] Start: 04-28-2024 End: 04-28-2024 ambulatory Carlos NOVAK Facility:[facility] Start: 04-24-2024 End: 04-24-2024 Departed Referred Kvng Crisostomo MD -[facility] Start: 04-24-2024 End: 04-24-2024 ambulatory Vicentesigifredokarolmilton Andressa NOVAK Facility:[facility] Start: 04-21-2024 End: 04-21-2024 Departed Referred Carlos Cavazos -[facility] Start: 04-21-2024 End: 04-21-2024 ambulatory Carlos NOVAK Facility:[facility] Start: 04-17-2024 ambulatory Vicenterocio Andressa NOVAK Fac ility:[facility] Start: 04-17-2024 Registered Referred Kvng Crisostomo MD -[facility] Start: 04-14-2024 ambulatory Vicenterocio Andressa NOVAK Fac ility:[facility] Start: 04-14-2024 Registered Referred Kvng Crisostomo MD -[facility] Start: 04-10-2024 End: 04-10-2024 Departed Referred Kvng Crisostomo MD -[facility] Start: 04-10-2024 End: 04-10-2024 ambulatory Kvng Jonesur OLS Facility:[facility] Start: 04-07-2024 End: 04-07-2024 Departed Referred Carlos Cavazos -[facility] Start: 04-07-2024 End: 04-07-2024 ambulatory Carlos NOVAK Facility:[facility] Start: 04-04-2024 ambulatory Avisgerson Andressa NOVAK Fac ility:[facility] Start: 04-04-2024 Registered Referred Kvng Crisostomo MD -[facility] Start: 03-31-2024 End: 03-31-2024 Departed Referred Carlos Cavazos -[facility] Start: 03-31-2024 End: 03-31-2024 ambulatory Carlos NOVAK Facility:[facility] Start: 03-27-2024 End: 03-27-2024 Departed Referred [facility] Start: 03-27-2024 End: 03-27-2024 ambulatory [facility] Facility:[facility] Start: 03-24-2024 End: 03-24-2024 Departed Referred Kvng Crisostomo MD -[facility] Start: 03-24-2024 End: 03-24-2024 ambulatory Kvng NOVAK Facility:[facility] Start: 03-20-2024 End: 03-20-2024 Departed Referred [facility] Start: 03-20-2024 End: 03-20-2024 ambulatory [facility] Facility:[facility] Start: 03-19-2024 End: 03-19-2024 Departed Referred Kvng Crisostomo MD -[facility] Start: 03-19-2024 End: 03-19-2024 ambulatory Kvng NOVAK Facility:[facility] Start: 03-18-2024 End: 03-18-2024 Departed Referred [facility] Start: 03-17-2024 End: 03-17-2024 Departed Referred [facility] Start: 03-14-2024 End: 03-14-2024 Departed Referred Carlos Cavazos [facility] Start: 03-13-2024 End: 03-13-2024 Departed Referred [facility] Start: 09-13-2023 End: 09-13-2023 ambulatory [facility] Start: 09-13-2023 End: 09-13-2023 Office outpatient visit 25 minutes Rebecca Buck MD Work Phone: [facility] Comment on above: Left flank pain (Christina magui Dx); BPH with urinary obstruction; History of kidney stones Start: 09-06-2023 End: 09-07-2023 ambulatory [facility] Start: 09-06-2023 End: 09-06-2023 Subsequent hospital visit by physician Rebecca Buck MD Work Phone: [facility] CT Imaging Comment on above: Left flank pain; Calculus of ureter Start: 08-31-2023 ambulatory [facility] Start: 08-31-2023 Patient encounter procedure [facility] Start: 08-21-2023 Telephone encounter Rebecca Buck MD Work Phone: [facility] Clinical Communication Comment on above: CT appt Boaz advice Start: 08-21-2023 Registered Referred [facility] Start: 08-13-2023 End: 08-13-2023 ambulatory [facility] Start: 08-13-2023 End: 08-13-2023 Office outpatient new 45 minutes Rebecca Buck MD Work Phone: [facility] Comment on above: Left flank pain (Christina magui Dx); Calculus of ureter; Disease of prostate; BPH with urinary obstruction Start: 08-03-2023 End: 08-03-2023 ambulatory [facility] Work Phone: Start: 08-03-2023 End: 08-03-2023 Departed Referred [facility] Start: 07-20-2023 End: 07-20-2023 ambulatory [facility] Work Phone: Start: 07-20-2023 End: 07-20-2023 Departed Referred [facility] Start: 07-20-2023 Registered Referred [facility] Start: 07-18-2023 End: 07-18-2023 ambulatory [facility] Work Phone: Start: 07-18-2023 End: 07-18-2023 [facility] Start: 07-18-2023 [facility] Start: 07-16-2023 End: 07-16-2023 ambulatory [facility] Work Phone: Start: 07-16-2023 End: 07-16-2023 [facility] Start: 07-16-2023 Registered Referred [facility] Start: 07-13-2023 End: 07-13-2023 ambulatory [facility] Work Phone: Start: 07-13-2023 End: 07-13-2023 [facility] Start: 07-13-2023 Registered Referred [facility] Start: 07-12-2023 End: 07-12-2023 ambulatory [facility] Work Phone: Start: 07-12-2023 End: 07-12-2023 [facility] Start: 07-12-2023 Registered Referred [facility] Start: 07-05-2023 End: 07-05-2023 ambulatory [facility] Work Phone: Start: 07-05-2023 End: 07-05-2023 [facility] Start: 07-05-2023 [facility] Start: 07-02-2023 [facility] Start: 06-28-2023 End: 06-28-2023 ambulatory [facility] Work Phone: Start: 06-28-2023 End: 06-28-2023 [facility] Start: 06-28-2023 [facility] Start: 06-25-2023 Telephone encounter Rebecca Buck MD Work Phone: [facility] Start: 06-25-2023 End: 06-25-2023 ambulatory [facility] Work Phone: Start: 06-25-2023 End: 06-25-2023 [facility] Start: 06-25-2023 [facility] Start: 06-21-2023 End: 06-21-2023 ambulatory [facility] Work Phone: Start: 06-21-2023 End: 06-21-2023 [facility] Start: 06-21-2023 [facility] Start: 06-13-2023 End: 06-13-2023 ambulatory [facility] Work Phone: Start: 06-13-2023 End: 06-13-2023 [facility] Start: 06-06-2023 End: 06-06-2023 ambulatory [facility] Work Phone: Start: 06-06-2023 End: 06-06-2023 [facility] Start: 06-06-2023 [facility] Start: 05-23-2023 End: 05-23-2023 ambulatory [facility] Work Phone: Start: 05-23-2023 End: 05-23-2023 [facility] Start: 05-09-2023 End: 05-09-2023 [facility] Start: 05-09-2023 [facility] Start: 04-23-2023 End: 04-23-2023 [facility] Start: 04-09-2023 End: 04-09-2023 ambulatory [facility] Work Phone: Start: 04-09-2023 End: 04-09-2023 [facility] Start: 04-09-2023 [facility] Start: 04-02-2023 End: 04-02-2023 ambulatory [facility] Work Phone: Start: 04-02-2023 End: 04-02-2023 [facility] Start: 04-02-2023 [facility] Start: 03-26-2023 End: 03-26-2023 ambulatory [facility] Work Phone: Start: 03-26-2023 End: 03-26-2023 [facility] Start: 03-26-2023 [facility] Start: 03-22-2023 End: 03-22-2023 ambulatory [facility] Work Phone: Start: 03-22-2023 End: 03-22-2023 [facility] Start: 03-22-2023 [facility] Start: 03-08-2023 End: 03-08-2023 ambulatory [facility] Work Phone: Start: 03-08-2023 End: 03-08-2023 Departed Referred [facility] Start: 02-22-2023 End: 02-22-2023 ambulatory [facility] Work Phone: Start: 02-22-2023 End: 02-22-2023 Departed Referred [facility] Start: 02-22-2023 Registered Referred [facility] Start: 02-15-2023 End: 02-15-2023 ambulatory [facility] Work Phone: Start: 02-15-2023 End: 02-15-2023 Departed Referred [facility] Start: 02-15-2023 Registered Referred [facility] Start: 02-08-2023 End: 02-08-2023 ambulatory [facility] Work Phone: Start: 02-08-2023 End: 02-08-2023 Departed Referred [facility] Start: 01-31-2023 End: 01-31-2023 ambulatory [facility] Work Phone: Start: 01-31-2023 End: 01-31-2023 Departed Referred [facility] Start: 01-31-2023 Registered Referred [facility] Start: 01-29-2023 End: 01-29-2023 Departed Referred [facility] Start: 01-29-2023 Registered Referred [facility] Start: 01-26-2023 End: 01-26-2023 Departed Referred [facility] Start: 01-26-2023 Registered Referred [facility] Start: 01-24-2023 End: 01-24-2023 Departed Referred [facility] Start: 01-24-2023 Registered Referred [facility] Start: 01-22-2023 End: 01-22-2023 ambulatory [facility] Work Phone: Start: 01-22-2023 End: 01-22-2023 [facility] Start: 01-22-2023 [facility] Start: 01-10-2023 End: 01-10-2023 ambulatory [facility] Work Phone: Start: 01-10-2023 End: 01-10-2023 [facility] Start: 01-10-2023 [facility] Start: 12-27-2022 End: 12-27-2022 ambulatory [facility] Work Phone: Start: 12-27-2022 End: 12-27-2022 [facility] Start: 12-27-2022 [facility] Start: 12-21-2022 End: 12-21-2022 ambulatory [facility] Work Phone: Start: 12-21-2022 End: 12-21-2022 [facility] Start: 12-21-2022 [facility] Start: 12-14-2022 End: 12-14-2022 ambulatory [facility] Work Phone: Start: 12-14-2022 End: 12-14-2022 [facility] Start: 12-14-2022 [facility] Start: 12-07-2022 End: 12-07-2022 ambulatory [facility] Work Phone: Start: 12-07-2022 End: 12-07-2022 [facility] Start: 12-07-2022 [facility] Start: 11-24-2022 End: 11-24-2022 ambulatory [facility] Work Phone: Start: 11-24-2022 End: 11-24-2022 Departed Referred [facility] Start: 11-24-2022 [facility] Start: 11-23-2022 End: 11-23-2022 ambulatory [facility] Work Phone: Start: 11-23-2022 End: 11-23-2022 [facility] Start: 11-23-2022 [facility] Start: 11-22-2022 End: 11-22-2022 ambulatory [facility] Work Phone: Start: 11-22-2022 End: 11-22-2022 [facility] Start: 11-22-2022 [facility] Start: 11-09-2022 End: 11-09-2022 ambulatory [facility] Work Phone: Start: 11-09-2022 End: 11-09-2022 [facility] Start: 11-09-2022 [facility] Start: 10-26-2022 End: 10-26-2022 Departed Referred [facility] Start: 10-26-2022 [facility] Start: 10-12-2022 End: 10-12-2022 ambulatory [facility] Work Phone: Start: 10-12-2022 End: 10-12-2022 [facility] Start: 10-12-2022 [facility] Start: 10-05-2022 End: 10-05-2022 [facility] Start: 10-05-2022 Registered Referred [facility] Start: 09-28-2022 End: 09-28-2022 ambulatory [facility] Work Phone: Start: 09-28-2022 End: 09-28-2022 [facility] Start: 09-14-2022 End: 09-14-2022 [facility] Start: 08-31-2022 End: 08-31-2022 [facility] Start: 08-31-2022 [facility] Start: 08-23-2022 End: 08-23-2022 ambulatory [facility] Work Phone: Start: 08-23-2022 End: 08-23-2022 [facility] Start: 08-23-2022 [facility] Start: 08-17-2022 End: 08-17-2022 ambulatory [facility] Work Phone: Start: 08-17-2022 End: 08-17-2022 [facility] Start: 08-17-2022 Registered Referred [facility] Start: 08-14-2022 End: 08-14-2022 ambulatory [facility] Work Phone: Start: 08-14-2022 End: 08-14-2022 [facility] Start: 08-14-2022 [facility] Start: 07-31-2022 End: 07-31-2022 ambulatory [facility] Work Phone: Start: 07-31-2022 End: 07-31-2022 Departed Referred [facility] Start: 07-31-2022 Registered Referred [facility] Start: 07-24-2022 End: 07-24-2022 ambulatory [facility] Work Phone: Start: 07-24-2022 End: 07-24-2022 Departed Referred [facility] Start: 07-24-2022 Registered Referred [facility] Start: 07-20-2022 End: 07-20-2022 [facility] Start: 07-20-2022 [facility] Start: 07-17-2022 End: 07-17-2022 [facility] Start: 07-17-2022 Registered Referred [facility] Start: 07-11-2022 Registered Referred [facility] Start: 07-10-2022 End: 07-10-2022 ambulatory [facility] Work Phone: Start: 07-10-2022 End: 07-10-2022 Departed Referred [facility] Start: 07-10-2022 Registered Referred [facility] Start: 07-03-2022 End: 07-03-2022 ambulatory [facility] Work Phone: Start: 07-03-2022 End: 07-03-2022 [facility] Start: 07-03-2022 [facility] Start: 06-27-2022 End: 06-27-2022 ambulatory [facility] Work Phone: Start: 06-27-2022 End: 06-27-2022 [facility] Start: 06-27-2022 [facility] Start: 06-13-2022 End: 06-13-2022 ambulatory [facility] Work Phone: Start: 06-13-2022 End: 06-13-2022 [facility] Start: 06-13-2022 [facility] Start: 06-06-2022 End: 06-06-2022 ambulatory [facility] Work Phone: Start: 06-06-2022 End: 06-06-2022 [facility] Start: 06-06-2022 [facility] Start: 05-30-2022 End: 05-30-2022 ambulatory [facility] Work Phone: Start: 05-30-2022 End: 05-30-2022 [facility] Start: 05-30-2022 [facility] Start: 05-16-2022 End: 05-16-2022 ambulatory [facility] Work Phone: Start: 05-16-2022 End: 05-16-2022 [facility] Start: 05-16-2022 [facility] Start: 05-02-2022 End: 05-02-2022 ambulatory [facility] Work Phone: Start: 05-02-2022 End: 05-02-2022 [facility] Start: 05-02-2022 [facility] Start: 04-27-2022 End: 04-27-2022 ambulatory [facility] Work Phone: Start: 04-27-2022 End: 04-27-2022 Departed Referred [facility] Start: 04-27-2022 Registered Referred [facility] Start: 04-26-2022 End: 04-26-2022 ambulatory [facility] Work Phone: Start: 04-26-2022 End: 04-26-2022 Departed Referred [facility] Start: 04-11-2022 End: 04-11-2022 ambulatory [facility] Work Phone: Start: 04-11-2022 End: 04-11-2022 Departed Referred [facility] Start: 03-28-2022 End: 03-28-2022 Departed Referred [facility] Start: 03-28-2022 Registered Referred [facility] Start: 03-23-2022 End: 03-23-2022 Departed Referred [facility] Start: 03-23-2022 Registered Referred [facility] Start: 03-16-2022 End: 03-16-2022 ambulatory [facility] Work Phone: Start: 03-16-2022 End: 03-16-2022 Departed Referred [facility] Start: 03-16-2022 Registered Referred [facility] Start: 03-09-2022 End: 03-09-2022 ambulatory [facility] Work Phone: Start: 03-09-2022 End: 03-09-2022 [facility] Start: 03-09-2022 Registered Referred [facility] Start: 03-06-2022 End: 03-06-2022 ambulatory [facility] Work Phone: Start: 03-06-2022 End: 03-06-2022 [facility] Start: 03-06-2022 [facility] Start: 03-02-2022 End: 03-03-2022 Emergency department patient visit UNKNOWN PROVIDER [facility] Start: 03-02-2022 End: 03-02-2022 Emergency department patient visit Lanette Munguia DO Work Phone: [facility] Emergency Dept Comment on above: Fall, initial encoun ter (Primary Dx); Anticoagulated Start: 02-20-2022 End: 02-20-2022 Departed Referred [facility] Start: 02-20-2022 Registered Referred [facility] Start: 02-13-2022 End: 02-13-2022 ambulatory [facility] Work Phone: Start: 02-13-2022 End: 02-13-2022 Departed Referred [facility] Start: 02-13-2022 [facility] Start: 02-06-2022 End: 02-06-2022 ambulatory [facility] Work Phone: Start: 02-06-2022 End: 02-06-2022 [facility] Start: 02-06-2022 [facility] Start: 01-30-2022 End: 01-30-2022 [facility] Start: 01-30-2022 [facility] Start: 01-26-2022 End: 01-26-2022 ambulatory [facility] Work Phone: Start: 01-26-2022 End: 01-26-2022 [facility] Start: 01-26-2022 Reg[facility] Start: 01-19-2022 End: 01-19-2022 ambulatory [facility] Work Phone: Start: 01-19-2022 End: 01-19-2022 [facility] Start: 01-19-2022 [facility] Start: 01-17-2022 ambulatory [facility] Start: 01-10-2022 [facility]ulatory [facility] Start: 01-10-2022 End: 01-10-2022 ambulatory [facility] Work Phone: Start: 01-10-2022 End: 01-10-2022 [facility] Start: 01-10-2022 [facility] Start: 01-06-2022 AUDIT Monika Elias rt [facility] Work Phone: Start: 01-05-2022 End: 01-05-2022 [facility] Start: 01-05-2022 [facility] Start: 12-30-2021 End: 12-30-2021 [facility] [employer] Start: 12-30-2021 [facility] Start: 12-28-2021 End: 12-28-2021 ambulatory [facility] Work Phone: Start: 12-28-2021 End: 12-28-2021 [facility] Start: 12-28-2021 [facility] Start: 12-26-2021 End: 12-26-2021 ambulatory [facility] Work Phone: Start: 12-26-2021 End: 12-26-2021 [facility]ed [facility] Start: 12-26-2021 Registered Referred [facility] Start: 12-22-2021 End: 12-22-2021 ambulatory [facility] Work Phone: Start: 12-22-2021 End: 12-22-2021 Departed Referred [facility] [place] Start: 12-22-2021 Registered Referred [facility] Start: 12-22-2021 End: 12-22-2021 [facility] Start: 12-21-2021 End: 12-22-2021 Emergency department patient visit Sharon Olivia MD Work Phone: [facility] Emergency Dept Comment on above: Heel ulceration, lef t, with unspecified severity (HCC) (Primary Dx) Start: 12-19-2021 End: 12-19-2021 ambulatory [facility] Work Phone: Start: 12-19-2021 End: 12-19-2021 Departed Referred [facility] Start: 12-19-2021 Registered Referred [facility] [place] [facility] Start: 12-12-2021 End: 12-12-2021 ambulatory [facility] Work Phone: Start: 12-12-2021 End: 12-12-2021 Departed Referred [facility] Start: 12-12-2021 Registered Referred [facility] [place] [facility] Start: 12-08-2021 End: 12-08-2021 ambulatory [facility] Work Phone: Start: 12-08-2021 End: 12-08-2021 Departed Referred [facility] Start: 12-08-2021 Registered Referred [facility] [place] [employer] Start: 12-05-2021 End: 12-05-2021 ambulatory [facility] Work Phone: Start: 12-05-2021 End: 12-05-2021 [facility] Start: 12-05-2021 [facility] Start: 12-01-2021 End: 12-01-2021 [facility] Start: 12-01-2021 [facility] Start: 11-28-2021 End: 11-28-2021 [facility] Start: 11-28-2021 [facility] Start: 11-25-2021 Rx Renewal Monika Elias rt Work Phone: [facility] Work Phone: Start: 11-23-2021 End: 11-23-2021 [facility] [place] [employer] Start: 11-23-2021 [facility] Start: 11-22-2021 End: 11-22-2021 [facility] Start: 11-22-2021 [facility] Start: 11-21-2021 End: 11-21-2021 [facility] [place] [employer] Start: 11-15-2021 AUDIT Monika Elias rt Work Phone: [facility] Work Phone: Start: 11-14-2021 End: 11-14-2021 [facility] Start: 11-14-2021 [facility] Start: 11-08-2021 End: 11-08-2021 [facility]ed [facility] Start: 11-08-2021 [facility] Start: 11-04-2021 End: 11-04-2021 Departed Referred [facility] Start: 11-04-2021 Registered Referred [facility] Start: 10-31-2021 End: 11-01-2021 Emergency department patient visit UNKNOWN PROVIDER [facility] Start: 10-31-2021 End: 11-01-2021 Emergency department patient visit Dante Kim MD Work Phone: [facility] Emergency Dept Comment on above: Other fatigue (Prima ry Dx) Start: 10-31-2021 End: 10-31-2021 Departed Referred [facility] Start: 10-21-2021 End: 10-29-2021 Evaluation and management of inpatient UNKNOWN PROVIDER [facility] Start: 10-21-2021 End: 10-29-2021 Evaluation and management of inpatient Lisa Michelle DO Work Phone: [facility] Comment on above: Leg swelling (Primar y Dx); Acute deep vein thrombosis (DVT) of proximal vein of lower extremity, unspecified laterality (HCC) Start: 10-20-2021 End: 10-20-2021 Departed Referred [facility] Start: 10-17-2021 Telephone encounter Nicole davis MD Work Phone: [facility] Comment on above: Missed Appointment Start: 09-19-2021 End: 09-19-2021 Departed Referred [facility] Start: 11-02-2020 AUDIT Monika Elias rt Work Phone: [facility] Work Phone: Start: 10-27-2020 AUDIT Monika Elias rt Work Phone: [facility] Work Phone: Start: 07-13-2020 Patient encounter procedure Monika Staley [facility] Work Phone: Start: 04-13-2020 Patient encounter procedure Wing Ritter [facility] Work Phone: Start: 04-07-2020 Patient encounter procedure Wing Ritter [facility] Work Phone: Start: 03-18-2020 Patient encounter procedure Wing Ritter 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] Start: 11-06-2019 Patient encounter procedure Monika Staley MD ZH[facility]Mnpdubhljd-Tpnxr Work Phone: Start: 06-18-2019 End: 06-18-2019 Subsequent [...] 10-26-2021 Electroencephalogram w/rec awake&asleep Sarina Pineda MANAGER [employer]ICING ANALYST Work Phone: Start: 10-26-2021 Ct head/brain w/o co ntrast material Sarina Pineda MANAGER [employer] - PRICING ANALYST Work Phone: Start: 10-26-2021 Prothrombin time Andres Sheridan MD Work Phone: Start: 10-25-2021 Speech and language therapy regime Sarina Pineda MANAGER [employer] - PRICING ANALYST Work Phone: Start: 10-25-2021 Prothrombin time Andres [...] reticulo cyte automated Ellen Massey Niesha MANAGER [employer] - PRICING ANALYST Work Phone: Start: 10-21-2021 C-reactive protein Jax Scherer MANAGER [employer] - PRICING ANALYST Work Phone: Start: 10-21-2021 Non-invas physiologi c std extremity art 2 level Shruthi Malik MANAGER [employer] - PRICING ANALYST Work Phone: Start: 10-21-2021 Radex calcaneus mini mum 2 views Shruthi Malik MANAGER [employer] - PRICING ANALYST Work Phone: Start: 10-21-2021 Dup-scan xtr veins [...] Comment: Speci men Type: BLOOD SPECIMENOrdering Facility: [facility] Address: [address] [place] [address] Performed By: #### T SCR ####[facility] BLOOD BANKCLIA [id number] [address] Start: 08-04-2021 Antibody screen Comment on above: Order Comment: Speci men Type: BLOOD SPECIMENOrdering Facility: [facility] Address: [address] [place] [address] Performed By: #### T SCR ####[facility] BLOOD BANKCLIA [id number] [address] Start: 08-01-2021 Antibody screen Comment on above: Order Comment: Speci men Type: BLOOD SPECIMENOrdering Facility: [facility] Address: [facility] [address] Performed By: #### T SCR ####[facility] BLOOD BANKCLIA [id number] [place] [address] [facility] Start: 06-07-2021 Antibody screen Comment on above: Order Comment: Speci men Type: BLOOD SPECIMEN Performed By: #### T SCR ####[facility] BLOOD BANKCLIA [id number] [place] [address] [facility] Start: 09-02-2020 Lipid 1996 panel - S bradly or Plasma Rebecca Buck MD Work Phone: Start: 04-07-2020 Echocardiography Wing Ritter Start: 11-13-2019 Radiologic examinati on tibia & fibula 2 views 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 (Kim) Debbie Work Phone: Hernia repair Monika melvin History of Cholecystotomy An yvette Staley History of Creation Of Subdural-Peritoneal CSF Shunt Monika Staley History of Interrupt ion Inferior Vena Cava [place] Filter Placement Monika Staley Urine culture Plan [...] (2 - Td or Tdap) [facility] Start: 09-02-2025 Lipid panel Lipid Panel [facility] Start: 03-02-2025 Registered Referred [facility] Start: 02-26-2025 Registered Referred [facility]istered [facility] Start: 02-23-2025 Registered Referred [facility]istered [facility] [place] [facility] Start: 02-19-2025 Registered Referred [facility]istered [facility] Start: 02-16-2025 Registered Referred [facility] Start: 08-22-2024 DIABETES SCREEN DIABETES SCREEN [facility] Start: 12-04-2023 Lipid panel Lipids [facility] Start: 12-04-2023 Lipid screen Lipid screen [facility] Work Phone: Start: 09-13-2023 End: 09-13-2023 Patient encounter procedure 09/13/2023 11:30 AM EDT Office Visit [facility] [address] [place] [id number] Rebecca Buck MD [address] [facility] [address] [place], [place] [id number] [facility] Start: 08-31-2023 End: 08-31-2023 Patient encounter procedure 08/31/2023 9:30 AM EDT Appointment [facility] [address] [place] [id number] Rebecca Buck MD [address] [facility] [address] [facility] [address] [place] [address] [facility] [address] [facility] Start: 08-13-2023 End: 08-12-2024 Basic metabolic 1998 panel - Serum or Plasma Basic metabolic panel Lab Routine Calculus of ureter Expected: 08/13/2023 (Approximate), Expires: 08/12/2024 [facility] [email or web address] Comment on above: Expected: 08/13/2023 (Approximate), Expires: 08/12/2024 Start: 08-13-2023 End: 08-12-2024 CT Abdomen WO contrast CT abdomen pelvis wo IV contrast Imaging Routine Left flank pain Calculus of ureter Expected: 08/13/2023, Expires: 08/12/2024 [facility] [email or web address] Comment on above: Expected: 08/13/2023 , Expires: 08/12/2024 Start: 08-13-2023 End: 02-12-2024 PSA, Monitoring ([facility]) PSA, Monitoring ([facility]) Lab Routine Disease of prostate Expected: 08/13/2023 (Approximate), Expires: 02/12/2024 [facility] Work Phone: Comment on above: Expected: 08/13/2023 (Approximate), Expires: 02/12/2024 Start: 08-13-2023 End: 08-13-2023 Patient encounter procedure 08/13/2023 10:00 AM EDT Office Visit [facility] [address] [place] [phone] Rebecca Buck MD [address] [place] [address] [facility] Start: 07-17-2023 Bacteria identified in Urine by Culture [facility] Start: 07-17-2023 [facility] Start: 07-16-2023 Measurement of substance [facility] Start: 05-07-2023 Medicare Advantage A nnual Wellness Visit Medicare Advantage Annual Wellness Visit [facility] Start: 03-02-2023 Creatinine measurement Creatinine Le carmela [facility] Start: 03-02-2023 Potassium measurement Potassium Leve l [facility] Start: 08-22-2022 Diabetes mellitus screening Diabetes Screening [facility] Start: 01-05-2022 Influenza vaccination [facility] Start: 12-23-2021 EPV, Provider: Wing Ritter, Status: Pen, Time: 9:30 AM EPV, Provider: Wing Ritter, Status: Pen, Time: 9:30 AM RK-Bltlfysstq-Tou ma Work Phone: Start: 12-05-2021 Influenza vaccination Flu vaccine (# 1) [facility] Start: 12-05-2021 Blood chemistry [facility] Work Phone: Start: 12-05-2021 Complete blood count [facility] Work Phone: Start: 12-05-2021 [facility] Work Phone: Start: 12-01-2021 [facility] Work Phone: Start: 08-05-2021 COVID-19 [...] malign ant neoplasm of colon [facility] Start: 07-30-2020 Screening for malign ant neoplasm of colon [facility] Start: 01-20-2020 Echocardiography Echocardiogram [facility] [address] [place] Work Phone: Start: 01-06-2020 Influenza vaccination INFLUENZA (#1) [facility] Start: 12-04-2019 Annual Wellness Visi t (AWV) Annual Wellness Visit (AWV) [facility] Start: 12-04-2019 Creatinine monitoring Creatinine mon itoring [facility] Work Phone: Start: 12-04-2019 Hepatitis C screen Hepatitis C scree n [facility] Work Phone: Comment on above: Postponed from 05/06 (Patient Refused) Start: 12-04-2019 Potassium monitoring Potassium monit oring [facility] Work Phone: Start: 12-04-2019 Prostate specific [...] Center Start: 04-14-2016 DIABETES SCREEN DIABETES SCREEN [facility] Start: 2012 RSV Immunization age d 60 or older (1 - 1-dose 60+ series) RSV Immunization aged 60 or older (1 - 1-dose 60+ series) [facility] Start: 2007 PROSTATE CANCER SCRE ENING DISCUSSION [...] r Vaccines (1 of 2) [facility] Start: 1997 COLOGUARD (FIT-DNA) COLOGUARD (FIT-D NA) [facility] Start: 1997 Colonoscopy COLONOSCOPY [facility] Start: 1997 COLORECTAL CANCER SCREENING COLORECTAL CANCER SCREENING [facility] Start: [address] COLONOGRAPHY [facility] Start: 1997 FECAL OCCULT BLOOD FECAL OCCULT BLOO D [facility] Start: 1997 Screening for malign ant neoplasm of colon [facility] Start: 1997 SIGMOIDOSCOPY SIGMOIDOSCOPY [facility] Start: 1987 Diabetes screen Diabetes screen [facility] Start: 1971 Urine microalbumin profile DTAP,TDAP,TD (1 - Tdap) [facility] Start: 1970 ANNUAL PCP TEAM ENERGY CONSULTANT KEESHA DISEASE VISIT ANNUAL PCP TEAM CHRONIC DISEASE VISIT [facility] Start: 1970 BP CONTROLLED (<130/80) BP CONTROLLE D (<130/80) [facility] Start: 1970 Diabetes mellitus screening Diabetes Screening [facility] Start: 1970 HEPATITIS C SCREENING HEPATITIS C JOBY VILLARREAL [facility] Start: 1970 Hepatitis C screening [facility] Start: 1964 Adult depression screening assessment DEPRESSION SCREENING [facility] Start: 1964 Depression Screen [facility] Start: 1962 Diabetic foot examination Diabetes: Foot Exam [facility] Start: 1962 Glaucoma screening Diabetes: R etinopathy Screening [facility] Start: 1962 Preventive dental service Diabetes: Dental Exam [facility] Start: 1952 Echocardiography Echocardiogram [facility] Start: 1952 Hemoglobin A1c measurement Diabetes: Hemoglobin A1C [facility] Start: 1952 Lipid panel Lipid Panel [facility] Start: 1952 Screening for malign ant neoplasm of colon [facility] Bacteria identified in Urine by Culture Urine Culture [facility] Work Phone: End: 03-02-2022 CBC W Auto Differential panel - Blood CBC with Auto Differential Lab Routine One Time for 1 Occurrences starting 03/02/2022 until 03/02/2022 [facility] Work Phone: Comment on above: One Time for 1 Occur rences starting 03/02/2022 until 03/02/2022 End: 03-02-2022 Comprehensive metabolic 2000 panel - Serum or Plasma Comprehensive Metabolic Panel Lab STAT One Time for 1 Occurrences starting 03/02/2022 until 03/02/2022 [employer] Work Phone: Comment on above: One Time for 1 Occur rences starting 03/02/2022 until 03/02/2022 End: 09-06-2023 CT Abdomen WO contrast [facility] [email or web address] [facility] Work Phone: Comment on above: [...] [facility] Work Phone: Oxygen therapy [[facility] Data Set] Initiate Oxygen Therapy Protocol [...] Care Routine Daily until discontinued starting 10/21/2021 [facility] Work Phone: Comment on above: Daily until disconti nued starting 10/21/2021 End: 10-21-2021 Wound ostomy eval Wound ostomy eval Wound Ostomy Routine One Time for 1 Occurrences starting 10/21/2021 until 10/21/2021 [facility] Work Phone: Comment on above: One Time for 1 Occur rences starting 10/21/2021 until 10/21/2021 [facility] NEGATED: Highlighted row has been ruled out! Planned Goals not documented [facility]Musaj[facility]Bjp ma Work Phone: Immunizations Immunization Date Immunization Notes Care Provider Fa cili 03-04-2019 influenza, high dose seasonal, preservative-free Sarika Salas [facility] 12-03-2018 pneumococcal polysac charide vaccine, 23 valent [facility] Work Phone: 01-25-2018 influenza, high dose [...] Phone: Payers Date Payer Category Payer Unknown [id number] 03-19-2024 Self-pay 01-05-2022 Medicaid 01-05-2022 Medicare 01-05-2022 Medicare [id number] 10-05-2021 Medicaid [id number] 06-07-2021 Medicare UHC MEDICARE UHC DUAL COMPLETE HMO SNP [id number] 06/07/2021-Present [phone] [address] [place] [address] Medicare [id number] [id number] 06-07-2021 Medicare UHC MEDICARE [employer] DUAL COMPLETE [id number] 06/07/2021-Present [phone] [address] [place] [address] [id number]. [id number] 11-05-2019 Medicare UHC AARP MEDICAR E [facility] AARP MEDICARE HMO [id number] 11/05/2019-Present O [id number]. [id number] 07-06-2015 Medicare UHC MEDICARE UHC MEDICARE COMPLETE xxxxxxxxx 2015-Present xxxxxxxxx [id number]. [id number] 1952 Unknown [id number] 2.16.840.1.220100.3.579. 2.668 1952 Unknown [id number] 2.16.840.1.668299.3.579. 2.668 1952 Unknown [id number] 2.840.1.011228.3.579. 2.6605-06-1950 Unknown [id number] 2.16.840.1.691853.3.579. 2.8 1952 Unknown [id number] 2.840.1.107302.3.579. 2.05-06-1950 Unknown [id number] 2.840.1.272040.3.579. 2.668 1952 Unknown [id number] 2.840.1.592525.3.579. 2.668 Private Health Insurance Unknown Unknown [id number] 2.840.1.943107.3.579. 2.462 Unknown [id number] 2.840.1.634138.3.579. 2.462 Unknown [id number] 2.840.1.386114.3.579. 2.462 Unknown [id number] 2.840.1.181406.3.579. 2.462 Unknown [id number] 2.16840.1.018472.3.579. 2.462 Unknown [id number] 2.16.840.1.030295.3.579. 2.462 Unknown [id number] 2.16.840.1.913526.3.579. 2.462 Unknown [id number] 2.16.840.1.155291.3.579. 2.462 Unknown [id number] 2.840.1.824522.3.579. 2.462 Unknown [id number] 2.16.840.1.348235.3.579. 2.462 Unknown [id number] 2.16.840.1.638441.3.579. 2.462 Unknown [id number] 2.16.840.1.530837.3.579. 2.462 Unknown [id number] 2.16.840.1.533393.3.579. 2.462 Unknown [id number] 2.16.840.1.922611.3.579. 2.462 Unknown [id number] 2.16.840.1.028712.3.579. 2.462 Unknown [id number] 2.840.1.419051.3.579. 2.462 Unknown [id number] 2.840.1.729462.3.579. 2.462 Unknown [id number] 2..840.1.820005.3.579. 2.462 Unknown [id number] 2.840.1.518656.3.579. 2.462 Unknown [id number] 2.840.1.104771.3.579. 2.462 Unknown [id number] 2.16.840.1.152071.3.579. 2.462 Unknown [id number] 2.16.840.1.355399.3.579. 2.462 Unknown [id number] 2..840.1.283134.3.579. 2.462 Unknown [id number] 2.16.840.1.999490.3.579. 2.462 Unknown [id number] 2.16.840.1.252812.3.579. 2.462 Unknown [id number] 2.16.840.1.028273.3.579. 2.462 Unknown [id number] 2.16.840.1.540223.3.579. 2.462 Unknown [id number] 2.16840.1.918843.3.579. 2.462 Unknown [id number] 2.16.840.1.916288.3.579. 2.462 Unknown [id number] 2.16840.1.250488.3.579. 2.462 Unknown [id number] 2.16.840.1.790703.3.579. 2.462 Unknown [id number] 2.16840.1.602632.3.579. 2.462 Unknown [id number] 2.16840.1.723332.3.579. 2.462 Unknown [id number] 2.840.1.179301.3.579. 2.462 Unknown [id number] 2.840.1.190127.3.579. 2.462 Unknown [id number] 2.840.1.687782.3.579. 2.462 Unknown [id number] 2.840.1.892268.3.579. 2.462 Unknown [id number] 2.840.1.534978.3.579. 2.462 Unknown [id number] 2.840.1.180291.3.579. 2.462 Unknown [id number] 2.840.1.161329.3.579. 2.462 Unknown [id number] 2.840.1.953952.3.579. 2.462 Unknown [id number] 2.840.1.342270.3.579. 2.462 Unknown [id number] 2.840.1.439197.3.579. 2.462 Unknown [id number] 2.840.1.698483.3.579. 2.462 Unknown [id number] 2.840.1.519789.3.579. 2.462 Unknown [id number] 2.16840.1.634022.3.579. 2.462 Unknown [id number] 2.16.840.1.568231.3.579. 2.462 Unknown [id number] 2.16.840.1.859078.3.579. 2.462 Unknown [id number] 2.16.840.1.186530.3.579. 2.462 Unknown [id number] 2.16.840.1.313416.3.579. 2.462 Unknown [id number] 2.16.840.1.229876.3.579. 2.462 Unknown [id number] 2.16.840.1.606879.3.579. 2.462 Unknown [id number] 2.16.840.1.617997.3.579. 2.462 Unknown [id number] 2.16.840.1.295359.3.579. 2.462 Unknown [id number] 2.16.840.1.717275.3.579. 2.462 Unknown [id number] 2.16.840.1.867637.3.579. 2.462 Unknown [id number] 2.16.840.1.117919.3.579. 2.462 Unknown [id number] 2.16.840.1.005350.3.579. 2.462 Unknown [id number] 2.16.840.1.745596.3.579. 2.462 Unknown [id number] 2.16.840.1.008215.3.579. 2.462 Unknown [id number] 2.16.840.1.106052.3.579. 2.462 Unknown [id number] 2.16.840.1.417967.3.579. 2.462 Unknown [id number] 2.16.840.1.572860.3.579. 2.462 Unknown [id number] 2.16.840.1.896041.3.579. 2.462 Unknown [id number] 2.16.840.1.377207.3.579. 2.462 Unknown 60279002 2.16.840.1.723537.3.579. 2.462 Unknown [id number] 2.16.840.1.684337.3.579. 2.462 Unknown [id number] 2.16.840.1.661358.3.579. 2.462 Unknown [id number] 2.16.840.1.576716.3.579. 2.462 Unknown [id number] 2.16.840.1.085732.3.579. 2.462 Unknown [id number] 2.16.840.1.091697.3.579. 2.462 Unknown [id number] 2.16.840.1.794821.3.579. 2.462 Unknown [id number] 2.16.840.1.170904.3.579. 2.462 Unknown [id number] 2.16.840.1.159088.3.579. 2.462 Unknown [id number] 2.16.840.1.629181.3.579. 2.462 Unknown [id number] 2.16.840.1.825134.3.579. 2.462 Unknown [id number] 2.16.840.1.138815.3.579. 2.462 Unknown [id number] 2.16.840.1.169488.3.579. 2.462 Unknown [id number] 2.16.840.1.719014.3.579. 2.462 Unknown [id number] 2.16.840.1.345226.3.579. 2.462 Unknown [id number] 2.16.840.1.796210.3.579. 2.462 Unknown [id number] 2.16.840.1.154191.3.579. 2.462 Unknown [id number] 2.16.840.1.090036.3.579. 2.462 Unknown [id number] 2.16.840.1.256995.3.579. 2.462 Unknown [id number] 2.16.840.1.233325.3.579. 2.462 Unknown [id number] 2.16.840.1.982012.3.579. 2.462 Unknown [id number] 2.16.840.1.580216.3.579. 2.462 Unknown [id number] 2.16.840.1.275135.3.579. 2.462 Unknown [id number] 2.16.840.1.132240.3.579. 2.462 Unknown [id number] 2.16.840.1.125026.3.579. 2.462 Unknown [id number] 2.16.840.1.564148.3.579. 2.462 Unknown [id number] 2.16.840.1.501943.3.579. 2.462 Unknown [id number] 2.16.840.1.238132.3.579. 2.462 Unknown [id number] 2.16.840.1.895123.3.579. 2.462 Unknown [id number] 2.16.840.1.774832.3.579. 2.462 Unknown [id number] 2.16.840.1.754400.3.579. 2.462 Unknown [id number] 2.16.840.1.854771.3.579. 2.462 Unknown [id number] 2.16.840.1.287385.3.579. 2.462 Unknown [id number] 2.16.840.1.773596.3.579. 2.462 Unknown [id number] 2.16.840.1.011826.3.579. 2.462 Unknown [id number] 2.16.840.1.114855.3.579. 2.462 Unknown [id number] 2.16.840.1.006358.3.579. 2.462 Unknown [id number] 2.16.840.1.122502.3.579. 2.462 Unknown [id number] 2.16.840.1.222298.3.579. 2.462 Unknown [id number] 2.16.840.1.107999.3.579. 2.462 Unknown [id number] 2.16.840.1.343789.3.579. 2.462 Unknown [id number] 2.16.840.1.588850.3.579. 2.462 Unknown [id number] 2.16.840.1.584890.3.579. 2.462 Unknown [id number] 2.16.840.1.679186.3.579. 2.462 Unknown [id number] 2.16.840.1.114033.3.579. 2.462 Unknown [id number] 2.16.840.1.257744.3.579. 2.462 Unknown [id number] 2.16.840.1.686465.3.579. 2.462 Unknown [id number] 2.16.840.1.047229.3.579. 2.462 Unknown [id number] 2.16.840.1.883644.3.579. 2.462 Unknown [id number] 2.16.840.1.438979.3.579. 2.462 Social History Date Type Detail Facility Start: 05-23-2018 End: 05-19-2019 Tobacco smoking status KYIS Former smoker [facility] Work Phone: History of tobacco use Cigar Smoker [facility] Work Phone: Start: 05-19-2019 End: 08-13-2023 Cigarettes smoked current (pack per day) - Reported [facility] Work Phone: Start: 05-19-2019 End: 08-13-2023 Alcohol intake Current non-drinker of alcohol (finding) [facility] Work Phone: Start: 12-03-2018 History SDOH Physica l Activity DPW 7 [facility] Work Phone: Start: 12-03-2018 History SDOH Physica l Activity MPS 9 [facility] Work Phone: Start: 12-03-2018 End: 10-31-2021 History SDOH Stress 1 [facility] Work Phone: Start: 12-03-2018 History SDOH Financial 5 [facility] Work Phone: Start: 12-03-2018 History SDOH Transpo rt Med 2 [facility] Work Phone: Start: 1950 Sex Assigned At [...] Start: 1950 Sex Assigned At Male [facility] History of tobacco use Current smoker [facility] Work Phone: History of tobacco use Cigarette Smoker S [facility] Work Phone: Start: 10-31-2021 End: 08-13-2023 Tobacco use panel [facility] Tobacco smoking stat us KYIS Unknown if ever smoked [facility] Work Phone: Start: 07-11-2024 End: 08-21-2024 Sex Male (finding) [facility] NEGATED: Highlighted row - - [facility] Work Phone: Medical Equipment Procedure Code Equipment Code Equipment Origin al Text Equipment Identifier Dates Kit Bactiseal Woodard maria guadalupe Silicone Barium Catheter Shunt Sterile - [id number] Start: 06-08-2021 Catheter Bactise al 14cm External Drainage Csf Sterile Latex Free - [id number] Start: 08-05-2021 Valve Certas Shannon nt Inline - [id number] Start: 06-08-2021 Cass snow Inline - [id number] Start: 08-05-2021 Valve Armando snow Inline - [id number] Start: 08-09-2021 Goals Date Patient Goal [...] confident he can reach it. Added to [facility] exercise information Functional Status Date Assessment Result Facility NEGATED: Highlighted row Functional performance Functional status health issues are not documented Disease [facility] Work Phone: Mental Status Date Assessment Result Facility NEGATED: Highlighted row Cognitive function [Interpretation] Cognitive status health issues are not documented [facility] Work Phone: Clinical Notes [...] Hydrocephalus, adult (CMS/HCC) (HCC) Kidney stone Neuropathy DATA MINING ANALYST (ventriculoperitoneal) shunt status Past Surgical History: Procedure [...] PM documented in this encounter [facility] 08-31-2023 Note S: Shanthi from [facility] spoke with [facility] nurse regarding voiding trial procedure. [...] Protocols used: Information Only Call - No [facility] Tele[facility] encounter Note S: Shanthi from [facility] spoke with [facility] nurse regarding voiding trial procedure. [...] Protocols used: Information Only Call - No Idayjm-VGTAP-PD [facility] 08-31-2023 Miscellaneous Notes S: Shanthi from [facility] [place] spoke with [facility] nurse regarding voiding trial procedure. B: Onset of symptoms/concern today. A: [facility] is calling to [...] Protocols used: Information Only Call - No Xkxlmc-COUWN-HQ documented in this encounter [facility] 08-29-2023 Telephone encounter Note Lm on daughters vm to advise them to call the number for the manager android to get clarification, and to call back with further questions [facility] 08-29-2023 Miscellaneous Notes Lm on daughters vm to advise them to call the number for the manager android to get clarification, and to call back with further questions Yes, they will need to call the number given to them. Please advise Name of caller: Shanthi Contact phone number: [phone] Relationship to Patient: patient Provider: MD Quinn Practice: [facility] Chief Complaint/Reason for Call: Shanthi called [...] reach out to call Maury Avila at [facility] [phone] to get clarifications. TEA did reach back out to [facility] and advised and provider Maury's #. Please advise Best time of day caller can be reached: Any Patient advised that office/PCP has 24-48 business hours to return their call: N/A documented in this encounter [facility] 08-27-2023 Telephone encounter Note Yes, they will need to call the number given to them. [facility] 08-27-2023 Telephone encounter Note Please advise [facility] 08-21-2023 Telephone encounter Note Name of caller: Shanthi Contact phone number: [phone] Relationship to Patient: patient Provider: MD Quinn Practice: [facility] Chief Complaint/Reason for Call: Shanthi called in to see if Pt would need to come by cot for his CT appt due to Pt being Boaz. TEA did reach out to office and was advised to reach out to Central Scheduling. TEA did reach out to CS and was advised to let [facility] know that she would need to reach out to call Maury Avila at [facility] [phone] to get clarifications. [facility] did reach back out to [facility] and advised and provider Maury's #. Please advise Best time of day caller can be reached: Any Patient advised that office/PCP has 24-48 business hours to return their call: N/A [facility] [email or web address] 08-13-2023 History of Present illness Narrative Images [...] Hydrocephalus, adult (CMS/HCC) (HCC) Kidney stone Neuropathy DATA MINING ANALYST (ventriculoperitoneal) shunt status Past Surgical History: Past [...] AM documented in this encounter [facility] 06-25-2023 Telephone encounter Note [facility] called in stating appt scheduled 07/10/23 Guy has to be made further out, pt being transported by cot. Changed appt to 08/13/[address] [facility] only avail time for transport, first avail with DR Buck at 10:00 AM. [facility] 06-25-2023 Miscellaneous Notes [facility] called in stating appt scheduled 07/10/23 Guy has to be made further out, pt being transported by cot. Changed appt to 08/13/[address] [facility] only avail time for transport, first avail with DR Buck at 10:00 AM. documented in this encounter [facility] 12-22-2021 Hospital Discharge instructions SANIA Lou - 12/22/2021 2:32 AM EDT Please take medication as prescribed Please follow up with your Physicians as instructed in this discharge paperwork Thank you for choosing [facility] I appreciate your patience Please return to the emergency department if your symptoms worsen, or new symptoms develop as discussed documented in this encounter [facility] Work Phone: 10-29-2021 Note Hospitalist Discharg [...] abnormality and previous indwelling tubing history of DATA MINING ANALYST shunt ? #?Bilateral lower extremity wounds-wound care [...] Your Medications These medications were sent to [facility] [address] [place] [address] [address] [facility] - P [phone] - F [phone] [facility] [id number] ? levETIRAcetam 750 MG tablet ? warfarin 6 MG tablet Recommended Follow-up: No follow-up provider specified. Complexity of Follow up: [] Moderate Complexity: follow up within 7-14 calendar days (05820) [x] Severe Complexity: follow up within 7 calendar days (99903) Follow up Testing, Pending results or Referrals [...] Increased fatigue or (more content not included)... [facility] 10-29-2021 Hospital Discharge instructions Fabi Subramanian [...] Contact Information Primary Emergency Contact: NelsonTriny Address: [address] [place] [address] [place] [address] [facility] Relation: Brother/Sister Secondary Emergency Contact: Melisas Sifuentes Mobile Relation: Child Preferred language: Syrian Past Surgical History: Past Surgical History: Procedure Laterality Date BRAIN SURGERY CHOLECYSTECTOMY COLONOSCOPY HERNIA REPAIR Immunization History: Immunization History Administered Date(s) Administered Influenza Virus Vaccine 02/08/2015 Influenza, High Dose (Fluzone 65 yrs and older) 01/25/2018, 03/04/2019 Influenza, Quadv, IM, (6 mo and older Fluzone, Flulaval, Fluarix and 3 yrs and older Afluria) 02/24/2016, 02/14/2017 Pneumococcal Conjugate 13-valent (Ibmdavc91) 09/22/2016 Pneumococcal Conjugate Vaccine 02/04/2013 Pneumococcal Polysaccharide (Reyrwxrqw96) 12/03/2018 Tdap (Boostrix, Adacel) 09/22/2016 Active Problems: Patient Active Problem List Diagnosis Code Flank pain, acute R10.9 Night muscle spasms M62.838 Chronic fatigue R53.82 Hydrocephalus (HCC) G91.9 Neuropathy G62.9 Erectile dysfunction N52.9 Fluid retention in tissues R60.9 Hyperlipidemia E78.5 Morbidly obese (HCC) E66.01 Leg wound, left S81.802A DVT, lower extremity, recurrent, unspecified laterality ([facility]) I82.409 Moderate malnutrition ([facility]) E44.0 History of seizures Z87.898 Isolation/Infection: [...] Dependent Dressing Dependent Toileting Dependent Feeding Dependent Government Affairs Manager Dependent Med Delivery whole in pudding Wound [...] Q4H prn SOB Oxygen Therapy: {Therapy; copd oxygen:53845} Ventilator: { CC Vent List:851987809} Rehab Therapies: {THERAPEUTIC INTERVENTION:0135744107} Weight Bearing Status/Restrictions: Weight Bearing - Patient was bedbound in hospital Other Medical Equipment (for information only, NOT a DME order): wheelchair, hospital bed, and Boaz Other Treatments: Patient's personal belongings (please select all that are sent with patient): {[facility] DME Belongings:539995541} RN SIGNATURE: CASE MANAGEMENT/SOCIAL WORK SECTION Inpatient Status Date: Readmission Risk Assessment Score: Readmission Risk Risk of Unplanned Readmission: 11 Discharging to Facility/ Agency Name: Address: Phone: Fax: Dialysis Facility (if applicable) Name: Address: Dialysis Schedule: Phone: Fax: Body And Fender Mechanic Apprentice/Warehouse Coordinator signature: {Esignature:278511915} PHYSICIAN SECTION Prognosis: Fair Condition at Discharge: [...] the diagnosis listed and that he requires Assisted Facility for greater than 30 days. Update Admission H&P: No change in H&P PHYSICIAN SIGNATURE: documented in this encounter [facility] Work Phone: 10-29-2021 History of Present illness Narrative [facility] Anticoagulation Management Service ([facility]) Inpatient Warfarin Consult HPI: Andrew Sifuentes is a 71 y.o. 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 Past Medical History: Diagnosis Date ED (erectile dysfunction) Hemorrhoids Hydrocephalus, adult (HCC) Kidney stone Neuropathy DATA MINING ANALYST (ventriculoperitoneal) shunt status Patient is newly referred to the [facility] clinic for warfarin management. Pt was referred [...] PharmD IRVIN Consult Service is available daily [phone]. Please search for covering pharmacist name via [employer] or Groups --> Pharmacy --> Anti-Coagulation Consult Pharmacist (on 3rd page). If no response via [employer], please page [phone]. Patient seen and chart reviewed. Afebrile. Adequate oxygenation on room air. Baseline mentation. Exam stable X 5 systems. Hgb 11.0 WBC 10.0 K Platelets 344 K Creatinine 0.71 GFR > 90 cc/min. NSE 20.8 with hemolysis. PT 30.8 INR 3.1 Conversion to Warfarin has been completed. APS w/u pending. Discussed with patient's staff physical therapist. Will continue to monitor. Total visit time > 35 minutes. Neurology Attending Progress Note SUBJECTIVE: No issues overnight. Care discussed with nursing staff/patient's medical team MRI brain reported nothing acute. Assessment and Plan: 71 yr M with PMH obstructive hydrocephalus s/p DATA MINING ANALYST shunt in 1987, needing multiple revisions and [...] normal limits and both old and new DATA MINING ANALYST shunt tubing noted. At present patient is awake, follows commands, was able to tell his name, and that he was in hospital but not oriented to time. Per documentation patient had NCSE in May 2021, was on Vimpat, but it was discontinued as there was no evidence of recurrent seizures in july 2021 by Neurology at [facility], per daughter patient was on [...] normal limits and both old and new DATA MINING ANALYST shunt tubing noted -EEG mild to moderate [...] then may need to be transferred to [facility]. -No clear clinical signs of ventriculitis. Defer evaluation to primary medical team/ID as deemed necessary. -Discussed with daughter in detail on . She was concerned that patient has had h/o seizures, and he has been taken off seizure medication, per note documentation patient had NCSE in May 2021 when he was admitted to [facility]. Per daughter she would want [...] the weekend, primary hospitalist team to contact assembler convertible top Neurology at [facility] for any weekend neurological issues related to the patient and if need to discuss any neurological test results/findings. Other deal in house Neurology coverage will be available from Sunday at [facility] and please call assembler convertible top Neurology back on Sunday if need further assistance. This note has been generated using Sumbola dictation software. It may contain incorrect words, punctuation's and spellings that were not noted in the review of the note prior to signing. This note has been generated using Sumbola dictation software. It may contain incorrect words, [...] 26 AST 24 BILITOT 0.4 LABALBU 3.7 @BRIEFLAB([facility]) ABGs: )No results for input(s): PH, [...] Radiology ACCESSION EXAM DATE/TIME PROCEDURE ORDERING PROVIDER [id number] 10/21/2021 15:30 EDT CR Calcaneus 2+ Views [id number] -SHRUTHI MALIK Left CPT code 61112 Reason For Exam (CR Calcaneus 2+ Views [...] Result Date: 10/26/2021 [facility] [id number] Computed Tomography ACCESSION EXAM DATE/TIME PROCEDURE ORDERING PROVIDER [id number] 10/26/2021 11:[address] Head or Brain w/o JUNIE PINEDA ALLISON Contrast CPT code 50503 Reason For Exam (CT Head or Brain w/o Contrast) hydrocephalus. thank you Report CLINICAL INFORMATION: Hydrocephalus. Shunt. 3 mm axial cuts through the head are obtained without IV contrast. The examination is compared to a previous study dated 06/29/2014. FINDINGS: Old DATA MINING ANALYST shunt tubing is noted bilaterally. The new [...] are clear. IMPRESSION: 1. Old and new DATA MINING ANALYST shunt tubing. 2. No hydrocephalus. 3. Atrophy [...] Imaging ACCESSION EXAM DATE/TIME PROCEDURE ORDERING PROVIDER [id number] 10/23/2021 11:08 EDT MRI Abdomen w/o Contrast SRIVASTAVAWING CPT code 72286 Reason For Exam (MRI Abdomen w/o Contrast) [...] Medicine ACCESSION EXAM DATE/TIME PROCEDURE ORDERING PROVIDER [id number] 10/21/2021 07:55 EDT NM Pulmonary Perfusion [id number] -MAY CASH w/ Vent Aerosol CPT code 04499 A9567 Reason For Exam (NM Pulmonary Perfusion [...] Indices Extremity Bilateral Result Date: 10/22/2021 [facility] --- Ankle Brachial Index Report Patient DO GurpreetB: 1950 Study 10/21/2021 Name: Andrew Gonzalez (71yrs) Date: Age: 71 Account: [id number] Gender: M Loc: 444W BP: Ordering Physician: Shruthi Malik Route Sales Manager: Rody Cross RDMS, RVT Interpreting Physician: Carina Call --- Location: [facility] --- Indications: Foot wounds. Originally ordered as a full PVR. Ordering SCADA OPERATOR had to modify the order to [...] supine position. Images were obtained using a Tamions vascular ultrasound machine. --- Arterial pressure indices: [...] BILATERAL VENOUS DUPLEX Result Date: 10/21/2021 [facility] --- Lower Extremity Venous Duplex Report Patient DO GurpreetB: 1950 Study 10/21/2021 Name: Andrew Gonzalez (71yrs) Date: Age: 71 Account: [id number] Gender: M Loc: 444 BP: Ordering Physician: May Cash Route Sales Manager: Rody Cross RDMS, RVT Interpreting Physician: Carina [...] supine position. Images were obtained using a [employer] vascular ultrasound machine. --- Venous flow and [...] Radiology ACCESSION EXAM DATE/TIME PROCEDURE ORDERING PROVIDER [id number] 10/21/2021 08:16 EDT CR Chest 1 View Frontal [id number] MAY BOGGS CPT code 99081 Reason For Exam (CR Chest 1 View [...] Result Date: 10/22/2021 [facility] [id number] Computed Tomography ACCESSION EXAM DATE/TIME PROCEDURE ORDERING PROVIDER [id number] 10/22/2021 13:[address] Abdomen/Pelvis (No SRIVASTAVA, WING PO, No IV) CPT code 62391 Reason For Exam (CT Abdomen/Pelvis (No PO, [...] Imaging ACCESSION EXAM DATE/TIME PROCEDURE ORDERING PROVIDER [id number] 10/27/2021 13:14 EDT MRI Brain w/o Contrast UNASSIGNED, UNASSIGNED CPT code 55771 Reason For Exam (MRI Brain w/o Contrast) stroke Patient has DATA MINING ANALYST shunt in place, please follow Radiology protocol [...] included. Hospitalist Progress Note 10/28/2021 11:37 AM [phone]: Please page me @ [phone] for patient care issues. [phone]: Please page spinner operator for any issues@ night Subjective: Admit [...] abnormality and previous indwelling tubing history of DATA MINING ANALYST shunt # Bilateral lower extremity wounds-wound care [...] Services This report was created using the Betterific Speaking voice-activated system. Despite prompt dictation and careful editorial review, there may be subtle contextual errors in this report, due to misrecognition of the spoken word. Speech Language Pathology Facility/Department: [facility] Dysphagia Treatment Note NAME: Andrew [...] and gloves were worn throughout this session. [facility] Anticoagulation Management Service ([facility]) Inpatient Warfarin Consult HPI: Andrew Sifuentes is a 71 y.o. 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 Past Medical History: Diagnosis Date ED (erectile dysfunction) Hemorrhoids Hydrocephalus, adult (HCC) Kidney stone Neuropathy DATA MINING ANALYST (ventriculoperitoneal) shunt status Patient is newly referred to the [facility] clinic for warfarin management. Pt was referred [...] interactions and adjust dose accordingly. 3. [facility] will manage while inpatient and sign off at discharge. Patient resides in a SNF. 4. Will provide warfarin education including [facility] warfarin booklet, if appropriate. Brionna Le, PharmD candidate Josie Gupta RPh, PharmD [facility] Consult Service is available daily [phone]. Please search for covering pharmacist name via [employer] or Groups --> Pharmacy --> Anti-Coagulation Consult Pharmacist (on 3rd page). If no response via PerfectServe, please page [phone]. Follow up b/l foot wounds. No new [...] yr M with PMH obstructive hydrocephalus s/p DATA MINING ANALYST shunt in 1987, needing multiple revisions and [...] normal limits and both old and new DATA MINING ANALYST shunt tubing noted. At present patient is awake, follows commands, was able to tell his name, and that he was in hospital but not oriented to time. Per documentation patient had NCSE in May 2021, was on Vimpat, but it was discontinued as there was no evidence of recurrent seizures in july 2021 by Neurology at [facility], per daughter patient was on [...] normal limits and both old and new DATA MINING ANALYST shunt tubing noted -EEG mild to moderate [...] then may need to be transferred to [facility]. -No clear clinical signs of ventriculitis. Defer evaluation to primary medical team/ID as deemed necessary. -Discussed with daughter in detail on . She was concerned that patient has had h/o seizures, and he has been taken off seizure medication, per note documentation patient had NCSE in May 2021 when he was admitted to [facility]. Per daughter she would want [...] interim. This note has been generated using Sumbola dictation software. It may contain incorrect words, punctuation's and spellings that were not noted in the review of the note prior to signing. This note has been generated using Sumbola dictation software. It may contain incorrect words, [...] LABALBU, AMYLASE, LIPASE in the last 72 hours.@[facility]RIEFLAB([facility]) ABGs: )No results for input(s): PH, [...] Radiology ACCESSION EXAM DATE/TIME PROCEDURE ORDERING PROVIDER [id number] 10/21/2021 15:30 EDT CR Calcaneus 2+ Views [id number] -SHRUTHI MALIK Left CPT code 93054 Reason For Exam (CR Calcaneus 2+ Views [...] Tomography ACCESSION EXAM DATE/TIME PROCEDURE ORDERING PROVIDER [id number] 10/26/2021 11:[address] Head or Brain w/o EDWIN, SCADA OPERATOR, SARINA Contrast CPT code 82730 Reason For Exam (CT Head or Brain w/o Contrast) hydrocephalus. thank you Report CLINICAL INFORMATION: Hydrocephalus. Shunt. 3 mm axial cuts through the head are obtained without IV contrast. The examination is compared to a previous study dated 06/29/2014. FINDINGS: Old DATA MINING ANALYST shunt tubing is noted bilaterally. The new [...] are clear. IMPRESSION: 1. Old and new DATA MINING ANALYST shunt tubing. 2. No hydrocephalus. 3. Atrophy [...] Imaging ACCESSION EXAM DATE/TIME PROCEDURE ORDERING PROVIDER [id number] 10/23/2021 11:08 EDT MRI Abdomen w/o Contrast WING SRIVASTAVA CPT code 50004 Reason For Exam (MRI Abdomen w/o Contrast) [...] Medicine ACCESSION EXAM DATE/TIME PROCEDURE ORDERING PROVIDER [id number] 10/21/2021 07:55 EDT NM Pulmonary Perfusion [id number] MAY BOGGS w/ Vent Aerosol CPT code 25395 A9567 Reason For Exam (NM Pulmonary Perfusion [...] Indices Extremity Bilateral Result Date: 10/22/2021 [facility] --- Ankle Brachial Index Report Patient Gurpreet RADHA: 1950 Study 10/21/2021 Name: Andrew Gonzalez (71yrs) Date: Age: 71 Account: [id number] Gender: M Loc: 444W BP: Ordering Physician: Shruthi Malik Route Sales Manager: Rody Cross RDMS, RVT Interpreting Physician: Carina Call --- Location: [facility] --- Indications: Foot wounds. Originally ordered as a full PVR. Ordering SCADA OPERATOR had to modify the order to [...] supine position. Images were obtained using a [employer] vascular ultrasound machine. --- Arterial pressure indices: [...] BILATERAL VENOUS DUPLEX Result Date: 10/21/2021 [facility] --- Lower Extremity Venous Duplex Report Patient DO GurpreetB: 1950 Study 10/21/2021 Name: Andrew Gonzalez (71yr) Date: Age: 71 Account: [id number] Gender: M Loc: 444 BP: Ordering Physician: May Cash Route Sales Manager: Rody Cross RDMS, RVT Interpreting Physician: Jakub, Carina --- Location: [facility] --- Indications: [...] supine position. Images were obtained using a Tamions vascular ultrasound machine. --- Venous flow and [...] Radiology ACCESSION EXAM DATE/TIME PROCEDURE ORDERING PROVIDER [id number] 10/21/2021 08:16 EDT CR Chest 1 View Frontal [id number] MAY BOGGS CPT code 99681 Reason For Exam (CR Chest 1 View [...] Tomography ACCESSION EXAM DATE/TIME PROCEDURE ORDERING PROVIDER [id number] 10/22/2021 13:[address] Abdomen/Pelvis (No SRIVASTAVA, WING PO, No IV) CPT code 93288 Reason For Exam (CT Abdomen/Pelvis (No PO, [...] 12:48 PM Consults Speech Language Pathology Facility/Department: [facility] Dysphagia Treatment Note NAME: Andrew [...] reactivity and state change, indicative of a vcgu-rn-nlgiqtni diffuse encephalopathy of nonspecific etiology. There are [...] Easy to chew diet/cut up. NEVILLE Jones M.A.CCC/PHARMACY TECHNICIAN PROGRAM DIRECTOR Time session ended: 1156 Total session minutes: 23 Images from the original note were not included. Hospitalist Progress Note 10/27/2021 10:40 AM [phone]: Please page me @ [phone] for patient care issues. [phone]: Please page spinner operator for any issues@ night Subjective: Admit [...] Services This report was created using the Betterific Speaking voice-activated system. Despite prompt dictation and careful editorial review, there may be subtle contextual errors in this report, due to misrecognition of the spoken word. [facility] Anticoagulation Management Service ([facility]) Inpatient Warfarin Consult HPI: Andrew Sifuentes is a 71 y.o. 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 Past Medical History: Diagnosis Date ED (erectile dysfunction) Hemorrhoids Hydrocephalus, adult (HCC) Kidney stone Neuropathy DATA MINING ANALYST (ventriculoperitoneal) shunt status Patient is newly referred to the [facility] clinic for warfarin management. Pt was referred [...] SNF. 4. Will provide warfarin education including [facility] warfarin booklet, if appropriate. Thank you for this consult Brionna Le, RigoD candidate Josie Gupta [facility], PharmD IRVIN Consult Service is available daily [phone]. Please search for covering pharmacist name via Techtium or Groups --> Pharmacy --> Anti-Coagulation Consult Pharmacist (on 3rd page). If no response via Techtium, please page [phone]. I cleaned under patient's finger nails with [...] status with Warfarin. Discussed with patient's staff physical therapist. Will continue to monitor. Total visit time [...] if concern Hydrocephalus Chronic WOODARD's - Revised DATA MINING ANALYST shunt - daughter requested that pt have [...] then may need to be transferred to [facility]. " Seizure history, unspecified - daughter [...] get report from nursing. Continue wound care. [facility] Anticoagulation Management Service ([facility]) Inpatient Warfarin Consult HPI: Andrew Sifuentes is a 71 y.o. 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 Past Medical History: Diagnosis Date ED (erectile dysfunction) Hemorrhoids Hydrocephalus, adult (HCC) Kidney stone Neuropathy DATA MINING ANALYST (ventriculoperitoneal) shunt status Patient is newly referred to the [facility] clinic for warfarin management. Pt was referred by Ellen B Niesha, MANAGER PAYROLL-PRICING ANALYST. Pt is on warfarin for DVT and [...] PharmD IRVIN Consult Service is available daily [phone]. Please search for covering pharmacist name via Techtium or Groups --> Pharmacy --> Anti-Coagulation Consult Pharmacist (on 3rd page). If no response via Techtium, please page [phone]. Moon daughter stated that any of patient's family can call and obtain an update on patient's status. Speech Language Pathology Facility/Department: [facility] CLINICAL BEDSIDE SWALLOW EVALUATION NAME: Andrew Sifuetnes : 1950 ADMISSION DATE: 10/21/2021 ADMITTING DIAGNOSIS: [...] a small bore straw. Additionally discussed with PHARMACY TECHNICIAN PROGRAM DIRECTOR, agreeable to assess tomorrow. Recent Chest [...] and liquids between bites. Treatment Plan Requires PHARMACY TECHNICIAN PROGRAM DIRECTOR Intervention: Yes Duration of Treatment: 2 [...] Education Response: Verbalizes understanding;Needs reinforcement Therapy Time PHARMACY TECHNICIAN PROGRAM DIRECTOR Individual Minutes Time In: 826 Time Out: 852 Minutes: 26 NEVILEL Jones 10/26/2021 9:20 AM Comprehensive Nutrition Assessment Type and Reason for Visit: Initial (DT referral for wounds) Nutrition Recommendations/Plan: 1. Recommend to continue: Easy to Chew diet with Thin Liquids as currently ordered and safe for patient to participate in. Discussed with: RN, SCADA OPERATOR, and PHARMACY TECHNICIAN PROGRAM DIRECTOR. PHARMACY TECHNICIAN PROGRAM DIRECTOR to assess tomorrow, best diet and [...] Malnutrition Assessment: Malnutrition Status: Moderate malnutrition (10/25/21 5519) Context: Chronic Illness Findings of the 6 [...] & deltoids),Scapula (trapezius) Fluid Accumulation: Mild Extremities Hairspring I Inspector Strength: Not Performed Nutrition Assessment: 71 year [...] a small bore straw. Additionally discussed with PHARMACY TECHNICIAN PROGRAM DIRECTOR, agreeable to assess tomorrow. Nutrition Related [...] Anthropometric Measures: Height: 5' 7.01" (170.2 cm) Gilbert Body Weight (IBW): 148 lbs (67 kg) [...] On: Kcal/kg Weight Used for Energy Requirements: Gilbert (67.15 kg) Energy (kcal/day): 6791-0774 (27-32 kcal/kg IBW) --> increased need d/t wounds Weight Used for Protein Requirements: Gilbert (67.15 kg) Protein (g/day): 67-101 (1.0-1.5 g protein/kg IBW) Method Used for Fluid Requirements: Other (Comment) Fluid (ml/day): 4852-1756 mL daily or per MD Nutrition Diagnosis: [...] Plan of Care discussed with: Patient, RN, SCADA OPERATOR Edwin Goals: Goals: other (specify) Specify Other [...] to determine Puja Almanza RD, LD Contact: *[phone] Techtium Hematology/Oncology Attending Progress Note SUBJECTIVE: Patient seen [...] IRON, TIBC, FERRITIN No results found for: [id number] No results found for: FOLATE PT 15.6 INR 1.5 CA 19 - 9 is 17 Protein S 138% Protein C 186% ASSESSMENT AND PLAN GI input appreciated. Patient continues with subtherapeutic INR. GI input appreciated. Discussed with patient's staff physical therapist. Will continue monitor. Total visit time > 35 minutes. [facility] Anticoagulation Management Service ([facility]) Inpatient Warfarin Consult HPI: Andrew Sifuentes is a 71 y.o. 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 Past Medical History: Diagnosis Date ED (erectile dysfunction) Hemorrhoids Hydrocephalus, adult (HCC) Kidney stone Neuropathy DATA MINING ANALYST (ventriculoperitoneal) shunt status Patient is newly referred to the [facility] clinic for warfarin management. Pt was referred [...] SNF. 4. Will provide warfarin education including [facility] warfarin booklet, if appropriate. Thank you for this consult Brionna Le, PharmD candidate Josie Gupta RPh, PharmD [facility] Consult Service is available daily [phone]. Please search for covering pharmacist name via Techtium or Groups --> Pharmacy --> Anti-Coagulation Consult Pharmacist (on 3rd page). If no response via Techtium, please page [phone]. Progress Note 10/25/2021 9:36 AM Name: Andrew [...] if concern Hydrocephalus Chronic WOODARD's - Revised DATA MINING ANALYST shunt DC planning - 10/25/21: INR subtherapeutic, [...] if concern Hydrocephalus Chronic WOODARD's - Revised DATA MINING ANALYST shunt DC planning - Can be DC'd back to ECF once MRI done if no acute findings, MRI is done, defer to hem / onc on plan for that, awaiting chest PA with fluoro Patient seen and chart reviewed. Consult dictated. Will ask GI to assess concerning the etiology of liver lesions. Will continue to monitor. [facility] Anticoagulation Management Service ([facility]) Inpatient Warfarin Consult HPI: Andrew Sifuentes is a 71 y.o. 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 Past Medical History: Diagnosis Date ED (erectile dysfunction) Hemorrhoids Hydrocephalus, adult (HCC) Kidney stone Neuropathy DATA MINING ANALYST (ventriculoperitoneal) shunt status Patient is newly referred to the [facility] clinic for warfarin management. Pt was referred [...] interactions and adjust dose accordingly. 3. [facility] will manage while inpatient and sign off at discharge. Patient resides in a SNF. 4. Will provide warfarin education including [facility] warfarin booklet, if appropriate. Thank you for this consult Brionna Le, PharmD candidate Josie Gupta RPh, PharmD [facility] Consult Service is available daily [phone]. Please search for covering pharmacist name via TalkTove or Groups --> Pharmacy --> Anti-Coagulation Consult Pharmacist (on 3rd page). If no response via PerfectServe, please page [phone]. Follow up foot wounds Patient is more alert this morning. Waffle boots are on Ulcer left heel ulcer right foot Foot drop PE, chart reviewed. Patient relates that he does not walk at home. c ontinue wound care. Images from the original note were not included. Hospitalist Progress Note 10/23/2021 1:47 PM [phone]: Please page me ([phone]) or perfect serve me for patient care issues. [phone]: Please page IMS night Hospitalist for any issues. Subjective: Admit Date: 10/21/2021 PCP: MONIKA STALEY MD Room#: 381/1466 Admitting Synopsis: 71 y/o male presents from [...] if concern Hydrocephalus Chronic WOODARD's - Revised DATA MINING ANALYST shunt DC planning - Can be DC'd [...] Hemorrhoids Hydrocephalus, adult (HCC) Kidney stone Neuropathy DATA MINING ANALYST (ventriculoperitoneal) shunt status Medications: sodium chloride warfarin [...] of Hospitalist Medicine Inpatient Medical Services PAGER: [phone] Nutrition rescreen completed. Pt referred to RD for foot ulcers. Occupational Therapy Facility/Department: [facility] Occupational Therapy Initial Assessment Name: Andrew Sifuentes : 1950 Date of Service: 10/23/2021 OT eval and treat orders received. Chart reviewed. Per notes pt from [facility], is Boaz lift at baseline, non-ambulatory, and requires assist for all ADLs. Will d/c OT orders. Elizabeth Gutierrez OT Physical Therapy Facility/Department: [address] Physical Therapy Initial Assessment Name: Andrew Sifuentes : 1950 Date of Service: 10/23/2021 PT eval and treat orders received. Chart reviewed. Per notes pt from [facility], is Boaz lift at baseline, non-ambulatory. Will d/c PT orders. Lloyd Silva PT [facility] Anticoagulation Management Service ([facility]) Inpatient Warfarin Consult HPI: Andrew Sifuentes is a 71 y.o. 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 Past Medical History: Diagnosis Date ED (erectile dysfunction) Hemorrhoids Hydrocephalus, adult (HCC) Kidney stone Neuropathy DATA MINING ANALYST (ventriculoperitoneal) shunt status Patient is newly referred to the [facility] clinic for warfarin management. Pt was referred [...] PharmD IRVIN Consult Service is available daily [phone]. Please search for covering pharmacist name via Techtium or Groups --> Pharmacy --> Anti-Coagulation Consult Pharmacist (on 3rd page). If no response via TalkTove, please page [phone]. Department of Podiatry Attending Consult Note Reason for Consult: Wound care Requesting Physician: MD Oksana CHIEF COMPLAINT: Foot wounds HISTORY OF PRESENT ILLNESS: The patient is a 71 y.o. male with b/l foot wounds. Patient is awake , but not answering questions. Past Medical History: Diagnosis Date ED (erectile dysfunction) Hemorrhoids Hydrocephalus, adult (HCC) Kidney stone Neuropathy DATA MINING ANALYST (ventriculoperitoneal) shunt status Past Surgical History: Procedure [...] OT consulted. Will follow . Thank you. [facility] Respiratory Care Department Progress Note As [...] included. Hospitalist Progress Note 10/22/2021 6:33 AM [phone]: Please page me ([phone]) or perfect serve me for patient care issues. [phone]: Please page [facility] night Hospitalist for any issues. Subjective: Admit Date: 10/21/2021 PCP: MONIKA STALEY MD Room#: 608/1461 Admitting Synopsis: 71 y/o male presents from [...] Initiated on Warfarin Chronic Wounds BLE Abnormal CARMLELA's see report - Appreciate wound care input - Consult to Podiatry for possible debridement - Xray left foot:No OM noted, consider MRI if concern Hydrocephalus - Revised DATA MINING ANALYST shunt Interval History: No overnight issues. Denies [...] no cyanosis or edema and unable to furniture mover helper BLE, this is old Musculoskeletal: [...] Hemorrhoids Hydrocephalus, adult (HCC) Kidney stone Neuropathy DATA MINING ANALYST (ventriculoperitoneal) shunt status Medications: sodium chloride baclofen [...] of Hospitalist Medicine Inpatient Medical Services PAGER: [phone] Images from the original note were not included. Hospitalist Progress Note 10/21/2021 5:31 PM [phone]: Please page me ([phone]) or perfect serve me for patient care issues. [phone]: Please page IMS night Hospitalist for any [...] Will need chronic OAC Hydrocephalus - Revised DATA MINING ANALYST shunt Interval History: No overnight issues. Denies [...] Hemorrhoids Hydrocephalus, adult (HCC) Kidney stone Neuropathy DATA MINING ANALYST (ventriculoperitoneal) shunt status Medications: sodium chloride baclofen [...] of Hospitalist Medicine Inpatient Medical Services PAGER: [phone] Family member Triny, sister to patient, called back to the hospital stating that she was returning a call from a provider. Her phone number is [phone] to speak with whomever was attempting to reach out to her. documented in this encounter [facility] Work Phone: 10-17-2021 Miscellaneous Notes Mr. Sifuentes missed his hospital stay follow-up appointment w. Dr. Lim today. Called to Reschedule. Could not get through. "Subscriber you have dialed not in service" - was the automated voice mail. Unable to leave VM. No other phone# available. Ramya Negro Vehicle Monitor Technician [facility] documented in this encounter [facility] 08-19-2021 Note [facility] 08-19-2021 Note [facility] 08-18-2021 Note [facility] 08[facility]18-2021 Note [facility] 08-17-2021 Note [facility] 08-17-2021 Note [facility] 08-16-2021 Note [facility] 08-16-2021 Note HNO ID: [id number] Author: Katt Kelsey DO Service: Hospital Medicine Author Type: Physician Type: Plan of Care Filed: 08/16/2021 12:26 PM Note Text: Spoke with RN that line is a PICC. Katt Kelsey DO 08/16/2021 12:26 PM [facility] 08-16-2021 Note [facility] 08-16-2021 Note [facility] 08-15-2021 Note [facility] 08-15-2021 Note [facility] 08-15-2021 Note [facility] 08-14-2021 Note [facility] 08[facility]14-2021 Note [facility] 08-13-2021 Note [facility] 08-13-2021 Note [facility] 08-13-2021 Note [facility] 08-13-2021 Note HNO ID: [id number] Author: Ambar Note Service: ? Author Type: ? Type: Progress Notes Filed: 08/13/2021 3:10 AM Note Text: Epic Scheduled Downtime: 08/13/2021 1:08:47 AM to 08/13/2021 2:53:47 AM [facility] 08-12-2021 Note [facility] 08-12-2021 Note [facility] 08-12-2021 Note [facility] 08-11-2021 Note [facility] 08[facility]11-2021 Note [facility] 08-11-2021 Note [facility] 08-11-2021 Note [facility] 08[facility]11-2021 Note [facility] 08-11-2021 Note [facility] 08-10-2021 Note [facility] 08-10-2021 Note [facility] 08-10-2021 Note [facility] 08-10-2021 Note [facility] 08-09-2021 Note HNO ID: [id number] Author: Shannon Brooks RN Service: ? Author Type: Registered Nurse Type: Nursing Progress Note Filed: 08/09/2021 7:33 PM Note Text: Report called to unit [facility] 08-09-2021 Note [facility] 08-09-2021 Note [facility] 08-09-2021 Note [facility] 08-08-2021 Note [facility] 08[facility]08-2021 Note [facility] 08-08-2021 Note [facility] 08-07-2021 Note [facility] 08[facility]07-2021 Note [facility] 08-07-2021 Note [facility] 08-07-2021 Note [facility] 08[facility]07-2021 Note [facility] 08-06-2021 Note [facility] 08-06-2021 Note [facility] 08-06-2021 Note [facility] 08-05-2021 Note [facility] 08-05-2021 Note [facility] 08-05-2021 Note [facility] 08-04-2021 Note [facility] 08[facility]04-2021 Note [facility] 08[facility]04-2021 Note [facility] 08-03-2021 Note [facility] 08[facility]03-2021 Note [facility] 08-03-2021 Note [facility] 08-02-2021 Note [facility] 08-02-2021 Note [facility] 08-02-2021 Note [facility] 08-01-2021 Note [facility] 08-01-2021 Note [facility] 08[facility]01-2021 Note [facility] 08-01-2021 Note [facility] 07-31-2021 Note [facility] 07-31-2021 Note [facility] 07-30-2021 Note [facility] 07-30-2021 Note [facility] 07-30-2021 Note [facility] 07-29-2021 Note [facility] 07-29-2021 Note [facility] 07[facility]29-2021 Note [facility] 07-28-2021 Note [facility] 07-28-2021 Note [facility] 07-28-2021 Note [facility] 07-27-2021 Note [facility] 07[facility]27-2021 Note [facility] 07-27-2021 Note [facility] 07-26-2021 Note [facility] 07[facility]26-2021 Note [facility] 07-26-2021 Note [facility] 07-26-2021 Note [facility] 07[facility]26-2021 Note [facility] 07-25-2021 Note [facility] 07-25-2021 Note [facility] 07[facility]25-2021 Note [facility] 07-25-2021 Note [facility] 07-24-2021 Note [facility] 07-24-2021 Note [facility] 07-24-2021 [facility] 07-23-2021 [facility] 07[facility]23-2021 [facility] 07-23-2021 Note [facility] 07-23-2021 Note [facility] 07-23-2021 Note [facility] 07-22-2021 Note [facility] 07[facility]22-2021 Note [facility] 07-22-2021 Note [facility] 07-21-2021 Note [facility] 07-21-2021 Note [facility] 07-21-2021 Note [facility] 07-21-2021 History of Past i [...] history of fever, elevated WBC, RP hematoma DATA MINING ANALYST shunt tip grew anaerobic gram positive cocci 06/08/2021 PLAN: DATA MINING ANALYST shunt tip sent to PSYCHIATRIC main, awaiting cx Continue Meropenem per I.D [...] - following CSF studies; 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 for SCOUT infection at this time - ID following- Continue antibiotics: Meropenem -CSF leak from EVD site, appreciate NSGY recs> stat repeat CTH on 06/07 d/t concern for CSF leak, cephalematoma, CTH unremarkable -Tolerating TF - SBT WTE - PICC line placed documented as of this encounter (statuses as of 10/17/2021) [facility]03-17-2022 [facility]03-16-2022 [facility]03-16-2022 [facility]03-16-2022 Note [facility]03-16-2022 [facility] 07-19-2021 [facility]03-15-2022 [facility]03-15-2022 [facility]03-14-2022 [facility]03-14-2022 [facility]03-13-2022 [facility]03-13-2022 [facility]03-12-2022 Note [facility]03-12-2022 [facility] 07-15-2021 [facility]03-11-2022 [facility]03-10-2022 [facility]03-10-2022 [facility]03-10-2022 [facility]03-09-2022 [facility]03-09-2022 [facility]03-09-2022 Note [facility]03-09-2022 [facility] 07-12-2021 [facility]03-08-2022 [facility]03-07-2022 [facility]03-07-2022 [facility]03-07-2022 [facility]03-07-2022 [facility]03-06-2022 [facility]03-06-2022 Note [facility]03-05-2022 [facility] 07-09-2021 [facility]03-05-2022 [facility]03-05-2022 [facility]03-05-2022 NoteHNO ID: [id number] Author: Lizette Valderrama RN Service: Nursing Author Type: Registered Nurse Type: Nursing Progress Note Filed: 07/09/2021 1:41 AM Note Text: Report called to [facility]03-04-2022 NoteHNO ID: [id number] Author: Lizette Valderrama RN Service: Nursing Author Type: Registered Nurse Type: Nursing Progress Note Filed: 07/08/2021 8:57 PM Note Text: [address] back to PACU [address] [place], [place] 7232603-04-2022 NoteHNO ID: [id number] Author: Sukhi Chery APRN.CNP Service: ? Author Type: Nurse Practitioner Type: Progress Notes Filed: 07/09/2021 6:46 PM Note Text: Connected Care Unit Progress Note Patient Name: Andrew Sifuentes Patient Facility: [facility] Admit Date 06/28/2021 Level of Care: Skilled [...] Dept Phone 07/21/2021 11:00 AM NICOLE LIM [phone] HPI: (Per Dr. Beltran) Andrew Sifuentes is being seen today for intermediate facility (SNF) admission AND management of weakness, tube feed, infected retroperitoneal infection and seizure. ? This is a 71 year old male who presents from [facility] with primary admitting diagnosis of [...] CT brain concerning for hydrocephalus. Tip of DATA MINING ANALYST shunt was found to be in the [...] slow to respond. Ordered to transfer to [facility] ED for evaluation of neurological and [...] changes in co (more content not included)... [facility]03-04-2022 [facility]03-04-2022 [facility]03-02-2022 NoteHNO ID: [id number] Author: Sukhi Chery APRN.CNP Service: ? Author Type: Nurse Practitioner Type: Progress Notes Filed: 07/09/2021 6:20 PM Note Text: Connected Care Unit Progress Note Patient Name: Andrew Sifuentes Patient Facility: [facility] Admit Date 06/28/2021 Level of Care: Skilled [...] Dept Phone 07/21/2021 11:00 AM NICOLE LIM [phone] HPI: (Per Dr. Beltran) Andrew Sifuentes is being seen today for intermediate facility (SNF) admission AND management of weakness, tube feed, infected retroperitoneal infection and seizure. ? This is a 71 year old male who presents [facility] CHILDREN with primary admitting diagnosis of [...] CT brain concerning for hydrocephalus. Tip of DATA MINING ANALYST shunt was found to be in the [...] Pharynx: Oropharynx is clear. (more content not included)...[facility]02-28-2022 NoteHNO ID: [id number] Author: Sukhi Chery APRN.PRICING ANALYST Service: ? Author Type: Nurse Practitioner Type: Progress Notes Filed: 07/09/2021 6:07 PM Note Text: Connected Care Unit Progress Note Patient Name: Andrew Sifuentes Patient Facility: [facility] Admit Date 06/28/2021 Level of Care: Skilled [...] but nursing notes it was drawn by neuropsychiatric aide as vancomycin was being infused; reordered trough - PICC Line Intact - No fevers or chills per patient or staff (R53.81) Debility - Certify therapies - Maintain high falls risk precautions - pt/staff verbalize understanding validated via teach back - Monitor safety awareness Appointments for Next 60 Days Date Time Provider Location Dept Phone 07/21/2021 11:00 AM NICOLE LIM [phone] HPI: (Per Dr. Beltran) Andrew Sifuentes is being seen today for intermediate facility (SNF) admission AND management of weakness, tube feed, infected retroperitoneal infection and seizure. ? This is a 71 year old male who presents from [facility] with primary admitting diagnosis of [...] CT brain concerning for hydrocephalus. Tip of DATA MINING ANALYST shunt was found to be in the [...] to facility records. OBJECTIVE: Labs/diagnostics: 07/04/2021 Glucose=91 Bc=507 K=3.8 Iq=474 CO2=24 BUN=14 Creatinine=0.5 KCQ=445 Ca=9.0 Protein,Total=6.7 Albumin=3.6 ZrlGuup=773 AST=15 ALT=21 Bilirubin,Totall=0.5 WBC=10.7 RBC=4.04 Hgb=10.9 Hct=35.3 Fjayhqil=081 VancomycinTr (more content not included)...[facility]22 NoteHNO ID: [id number] Author: Sukhi Chery APRN.KIM Service: ? Author Type: Nurse Practitioner Type: Progress Notes Filed: 07/09/2021 5:43 PM Note Text: Connected Care Unit Progress Note Patient Name: Andrew Sifuentes Patient Facility: [facility] Admit Date 06/28/2021 Level of Care: Skilled [...] Phone 07/21/2021 11:00 AM NICOLE LIM GENERA [phone] HPI: (Per Dr. Beltran) Andrew Sifuentes is being seen today for intermediate facility (SNF) admission AND management of weakness, tube feed, infected retroperitoneal infection and seizure. ? This is a 71 year old male who presents from [facility] with primary admitting diagnosis of [...] CT brain concerning for hydrocephalus. Tip of DATA MINING ANALYST shunt was found to be in the [...] to facility records. OBJECTIVE: Labs/diagnostics: 07/01/2021 Glucose=83 Em=714 K=4.1 Qe=430 CO2=27 BUN=22 Creatinine=0.6 KJZ=416 Ca=8.7 WBC=10.8 RBC=3.40 Hgb=9.3 Hct=29.9 Yvwvteat=352 Vital Signs: BP 128/80 Pulse 77 Temp 36.7 ?C (98 ?F) Resp 20 Ht 182.9 cm (6') Wt 113 kg (249 lb 3.2 oz) SpO2 96% BMI 33.80 kg/m? Physical Exam: Physical Exam Vitals reviewed. Constitutional: General: He is not in acute distress. (more content not included)...[facility]02-22-2022 [facility]02-22-2022 [facility] Note [facility]02-20-2022 [facility] 06-26-2021 [facility]-19-2022 [facility]18-[facility]-2022 [facility]-2022 Note [facility]02-17-2022 [facility] 06-22-2021 NoteHNO ID: [id number] Author: Xiomy England RN Service: Nursing Author Type: Registered Nurse Type: Nursing Progress Note Filed: 06/22/2021 7:22 PM Note Text: RT contacted as pt has wheezing auscultated and same auditory. For prn Treatment.[facility]02-16-2022 [facility]02-16-2022 [facility]-16-2022 [facility]16-2022 [facility]16-2022 [facility]-15-2022 [facility]-15-2022 Note [facility]02-15-2022 [facility] 06-21-2021 [facility]02-14-2022 [facility]14-[facility]14[facility]14[facility]13-2022 [facility]13-2022 Note [facility]02-13-2022 [facility] 06-19-2021 [facility]-13-2022 [facility]12-[facility]12[facility]02[facility]12-2022 [facility]12[facility] Note [facility]02-12-2022 NoteHNO ID: [id number] Author: Ambar Note Service: ? Author Type: ? Type: Progress Notes Filed: 06/18/2021 3:10 AM Note Text: Epic Scheduled Downtime: 06/18/2021 1:00:00 AM to 06/18/2021 2:27:[facility]11[facility]20[facility] 06-17-2021 [facility]11-20[facility]10-2022 [facility]10-2022 [facility]02[facility]10-2022 [facility]10-2022 [facility]-10-2022 Note [facility]02-10-2022 [facility] 06-15-2021 [facility]02-09-2022 NoteHNO ID: [id number] Author: Lamonte Kline DO Service: Neurology ICU Author Type: Resident Type: Plan of Care Filed: 06/15/2021 6:21 PM Note Text: Patient's daughter Melissa updated on plan of care and critical condition, all questions answered.[facility]02-09-2022 [facility]02-09-2022 [facility]02-09-2022 [facility]09-2022 [facility]09-2022 Note [facility]02-09-2022 [facility] 06-15-2021 [facility]02-08-2022 [facility]08-2022 [facility]02[facility]08-2022 [facility]02[facility]08-2022 [facility]07-2022 [facility]07-20[facility]07-2022 Note [facility]02-07-2022 [facility]-12[facility]05-[facility]04-20[facility]04-2022 Note [facility]02-04-2022 [facility] 06-09-2021 [facility]02-03-2022 [facility]03-2022 [facility]02[facility]03-2022 [facility]02-02-2022 [facility]02-02-2022 NoteHNO ID: [id number] Author: Luis Diaz RN Service: ? Author Type: Registered Nurse Type: Nursing Progress Note Filed: 06/08/2021 9:23 AM Note Text: Patient off the floor to OR at this time.[facility]02-02-2022 [facility]02-02-2022 [facility] 06-08-2021 NoteHNO ID: [id number] Author: Eloise Samuel RN Service: ? Author Type: Registered Nurse Type: Nursing Progress Note Filed: 06/08/2021 12:46 AM Note Text: Dr. Brito notified of changes throughout shift. [facility] 06-07-2021 NoteHNO ID: [id number] Author: Eloise Samuel RN Service: ? Author Type: Registered Nurse Type: Nursing Progress Note Filed: 06/07/2021 8:01 PM Note Text: Neuro surg PRICING ANALYST notified of downward deviation of pupils. No new orders at this time.[facility]02-01-2022 [facility]02-01-2022 [facility]02-01-2022 [facility]02-01-2022 [facility]01-31-2022 [facility]31-[facility] Note [facility]01-31-2022 [facility] 06-05-2021 [facility]01-30-2022 [facility]01[facility]30-2022 [facility]01-29-2022 [facility]01-29-2022 NoteHNO ID: [id number] Author: Jermaine Miller PA-C Service: Neurosurgery Author Type: Physician Blanking Press Operator Type: Plan of Care Filed: 06/04/2021 1:59 PM Note Text: Discussed with Dr. Charles CT brain results. At this time, continue with EVD at 5 [facility]01-29-2022 [facility] 06-04-2021 [facility]01-28-2022 [facility]01-28-2022 NoteHNO ID: [id number] Author: Mauricio Frank DO Service: Neurology ICU Author Type: Physician Type: Plan of Care Filed: 06/03/2021 2:38 PM Note Text: I spoke with Melissa and updated her over the phone. Mauricio Frank, [facility]01-28-2022 [facility]01-28-2022 [facility]01-27-2022 [facility]01-27-2022 [facility]01-27-2022 Note [facility]01-26-2022 [facility] 06-01-2021 [facility]01-26-2022 [facility]01-26-2022 [facility]01-26-2022 [facility]01-25-2022 [facility]01-25-2022 [facility]01-25-2022 [facility]01[facility]25-2022 Note [facility]01-25-2022 [facility] 05[facility]31-2021 [facility] Diagnosis Leg swelling- Primary Swelling of limb Acute deep vein thrombosis (DVT) of proximal vein of lower extremity, unspecified laterality (HCC) DVT, lower extremity, recurrent, unspecified laterality (HCC) Moderate malnutrition (HCC) Malnutrition of moderate degree History of seizures Personal history of other disorders of nervous system and sense organs documented in this encounter [facility] Work Phone: Evaluation noteNo assessment information available [facility] Work Phone: Evaluation note* Diagnosis Other fatigue- Primary documented in this encounter [facility] Work Phone: Evaluation note* Diagnosis Heel ulceration, left, with unspecified severity (HCC)- Primary documented in this encounter [facility] Work Phone: Evaluation note* Diagnosis Fall, initial encounter- Primary Anticoagulated Encounter for long-term (current) use of anticoagulants documented in this encounter [facility] Work Phone: Evaluation note* Diagnosis Left flank pain- Primary Abdominal pain, unspecified site Calculus of ureter Disease of prostate Unspecified disorder of prostate BPH with urinary obstruction Hypertrophy of prostate with urinary obstruction and other lower urinary tract symptoms (LUTS) documented in this encounter [facility] [email or web address] note* Diagnosis Left flank pain Abdominal pain, unspecified site Calculus of ureter documented in this encounter [facility] [email or web address] note* Diagnosis Left flank pain- Primary Abdominal pain, unspecified site BPH with urinary obstruction Hypertrophy of prostate with urinary obstruction and other lower urinary tract symptoms (LUTS) History of kidney stones documented in this encounter [facility] HealthInstructions* Name Dates Details Instructions not documented [id number] Work Phone: Instructions* Name Dates Details Instructions not documented [id number] [address] [place] Work Phone: Reason for referral (narrative)No reason for referral information availableAcmc [facility] Work Phone: Advance Directives No Advanced Directives Records FoundDocuments on File Type Date Recorded Patient Vest Baster Expl anation Advance Directives and Living Will Power of Head Butler Documents on File Type Date Recorded Patient Vest Baster Expl anation Advance Directive(s) 06/02/2021 2:45 PM [...] Maker Relationship: 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 Adult Children (digital sales representative) Documents on File Type Date Recorded Patient Vest Baster Expl anation ACP-Advance Directive ACP-Power of Head Butler Latest Code Status on File Code Status Date Activated Date Inactivated Comments Full Code 10/21/2021 4:09 AM Healthcare Agents on File Name Relationship Healthcare Agent Relationshi p Communication Melissakb Dengyer Child Primary Decision Maker deann Gurpreet Child Secondary Decision Maker Documents on File Type Date Recorded Patient Vest Baster Expl anation ACP-Advance Directive ACP-Power of Head Butler ACP-Do Not Resuscitate 11/01/2021 7:03 AM Latest Code Status on File Code Status Date Activated Date Inactivated Comments Full Code 10/21/2021 4:09 AM 10/29/2021 7:25 PM Healthcare Agents on File Name Relationship Healthcare Agent Relationshi p Communication Melissakb Dengyer Child Primary Decision Maker deann Gurpreet Child Secondary Decision Maker Documents on File Type Date Recorded Patient Vest Baster Expl anation ACP-Do Not Resuscitate 11/03/2021 10:15 AM ACP-Do Not Resuscitate 11/01/2021 7:03 AM Healthcare Agents on File Name Relationship Healthcare Agent Relationshi p Communication Melissa Gurpreet Child Primary Decision Maker deann Gurpreet Child Secondary Decision Maker Documents on File Type Date Recorded Patient Vest Baster Expl anation ACP-Do Not Resuscitate 11/03/2021 10:15 [...] Documents on File Type Date Recorded Patient Vest Baster Expl anation DNR (Do Not Resuscitate) 10/31/2021 DNR (Do Not Resuscitate) 10/21/2021 Documents on File Type Date Recorded Patient Vest Baster Expl anation DNR (Do Not Resuscitate) 10/31/2021 [...] 5 :00am [facility] March 17 5:00am [facility] March 18 5:00am [...] 01 4:00am [facility] May 05 4 5:00am [facility] May 08, 2024 [...] WORK June 30 5:00am [facility] February 27th, 202 5 5:00am [facility] July 07, 2024 [...] Chief Complaint Admit Date [facility] October 09, 2024 5:0 0am LABWORK October 13, 2024 5:00a m [facility] October 16, 2024 5: 00am [facility] October 20, 2024 4: 00am [facility] WORK October 23, 2024 5: 00am [facility] WORK October 27, 2024 4: 00am [facility] WORK October 30, 2024 6: 35am LABWORK November 03, 2024 5:00 am [facility] November 06, 2024 4:0 0am [facility] November 10, 2024 4:0 0am [facility] WORK November 13, 2024 5: 00am [facility] WORK November 17, 2024 5: 00am [facility] WORK November 20, 2024 5: 00am [facility] WORK November 24, 2024 5: 00am [facility] WORK November 27, 2024 5: 00am LABWORK November 28, 2024 5:00 am LABWORK December 01, 2024 5:00 am [facility] December 02, 2024 4: 00am [facility] WORK December 04, 2024 5: 00am [facility] WORK December 08, 2024 5 :00am LABWORK December 11, 2024 6:0 0am [facility] December 15, 2024 4:00am [facility] WORK December 18, 2024 5:00am [facility] WORK December 22, 2024 4:00am LABWORK December 24, 2024 5: 00am [facility] WORK December 25, 2024 5:00am [facility] WORK December 26, 2024 5:00am LABWORK December 29, 2024 5: 00am [facility] WORK January 01, 2025 5:00am SHE[facility] WORK January 06 5:00am LABWORK January 08, 2025 5:00am [facility] WORK January 12 4:00am [facility] WORK January 15 5:00am LABWORK January 19, 2025 5:00am [facility] WORK January 26 4:00am Chief Complaint Admit Date LABWORK November 03, 2024 5:00 am [facility] WORK November 06, 2024 4:0 0am [facility] WORK November 10, 2024 4:0 0am [facility] WORK November 13, 2024 5: 00am [facility] WORK November 17, 2024 5: 00am [facility] WORK November 20, 2024 5: 00am SHE[facility] WORK November 24, 2024 5: 00am SHE[facility] WORK November 27, 2024 5: 00am LABWORK November 28, 2024 5:00 am LABWORK December 01, 2024 5:00 am [facility] WORK December 02, 2024 4: 00am SHE[facility] WORK December 04, 2024 5: 00am [facility] WORK December 08, 2024 5 :00am LABWORK December 11, 2024 6:0 0am [facility] WORK December 15, 2024 4:00am SHE[facility] WORK December 18, 2024 5:00am [facility] WORK December 22, 2024 4:00am LABWORK December 24, 2024 5: 00am [facility] WORK December 25, 2024 5:00am [facility] WORK December 26, 2024 5:00am LABWORK December 29, 2024 5: 00am [facility] WORK January 01, 2025 5:00am [facility] WORK January 06 5:00am LABWORK January 08, 2025 5:00am [facility] WORK January 12 4:00am [facility] WORK January 15 5:00am LABWORK January 19, 2025 5:00am [facility] WORK January 22 5:00am [facility] WORK January 26 4:00am [facility] WORK January 29 7:30am [facility] WORK February 02 4:00am [facility] WORK February 05, 2025 5:00am [facility] WORK February 16, 2025 4:00am Reason for Referral Specialty Diagnoses / Procedures Referred By Aki kumari Referred To Contact Urology Diagnoses Other fatigue Lanette Munguia DO [address] [place] [address] [facility] [address] [place] [id number] Referral ID Status Reason Start Date Expiration Date V isits Requested Visits Authorized [id number] Open Specialty Services Required 11/01/2021 11/01/2022 1 1 Scheduling Instructions [facility] [place] [address] Specialty Diagnoses / Procedures Referred By Aki kumari Referred To Contact IP Unit Diagnoses Heel ulceration, left, with unspecified severity (HCC) Henry Hidalgo PA [address] [place] [address] [facility] [address] [place] [address] Referral ID Status Reason Start Date Expiration Date V isits Requested Visits Authorized [id number] Open Specialty Services Required 12/22/2021 12/22/2022 1 1 Scheduling Instructions [facility] [address] [place] [address] Comments Please use the parking lot located on [address] or [address]. There are handicap parking spots located in a small lot beside the wound care entrance off of [address] [employer]. Please be advised there is a small incline from those handicap spots to our main door. Bring photo ID and insurance card to photocopy. Wear loose fitting clothing (to easily access wound). Bring list of medications (or can be sent by office). Check in at Registration for your first visit. Please call us directly with any questions [phone]. We look forward to helping you heal. Specialty Diagnoses / Procedures Referred By Contdesiree t Referred To Contact Radiology Diagnoses Left flank pain Calculus of ureter Procedures CT abdomen pelvis wo IV contrast Rebecca Buck MD [address] [place] [address] Referral ID Status Reason Start Date Expiration Date V isits Requested Visits Authorized [id number] Pending Review 08/13/2023 08/12/2024 1 1 Referral ID Status Reason Start Date Expiration Date Visits Re quested Visits Authorized [id number] Closed 08/17/2023 09/16/2023 1 1 Additional Source [...] section and content) DATE CREATED AUTHOR 05/20/2021 [facility] DATE CREATED AUTHOR AUTHOR'S ORGANIZ ATION 06/07/2021 [facility] DATE CREATED AUTHOR AUTHOR'S ORGANIZ ATION 08/02/2021 [facility] DATE CREATED AUTHOR AUTHOR'S ORGANIZ ATION 12/09/2021 [facility] DATE CREATED AUTHOR AUTHOR'S ORGANIZ ATION 12/29/2021 [facility] DATE CREATED AUTHOR AUTHOR'S ORGANIZ ATION 02/04/2022 [facility] DATE CREATED AUTHOR AUTHOR'S ORGANIZ ATION 03/03/2022 [facility] DATE CREATED AUTHOR AUTHOR'S ORGANIZ ATION 09/15/2023 [facility] DATE CREATED AUTHOR AUTHOR'S ORGANIZ ATION 03/18/[address] [facility] Reason for Visit (unrecogniz ed section and content) Reason Comments Missed Appointment Reason Comments Leg Swelling Blood clots Reason Comments Altered Mental Status Pt presents to ED via [facility] for complaint listed. Pt is from [facility]. Pt's LKW was 1000 hours today. Per EMS, pt had a - [place]. Pt denies CP, SOB, and N/V. Pt seems slow to respond, slightly confused at this time. Reason Comments Osteomyelitis Patient from [facility] did xrays on left lower leg and and have concerns for possible osteomyelitis A&Ox2 to self and place, stated year 2022 [facility] martini Reason Comments Fall Patient had unwitnes sed fall at [facility] landed on butt. Is on thinners, [...] Buck MD [address] [place] [address] Referral ID Status Reason Start Date Expiration Date Visits Re quested Visits Authorized [id number] Closed 08/17/2023 09/16/2023 1 1 Reason Comments left flank pain 8/10 pain when touch ed Reason Onset Date Comments CT appt Boaz advice 08/21/2023 Reason Onset Date Comments OTHER 08/31/2023 Care Teams (unrecognized sec tion and content) Team Status: Active Member Role Status Dates Dr. Monika Stalye MD Primary Care Provider Active Team Status: [...] September 04, 2024 End: September 04, 2024 Carols NOVAK Attending Provider Active Sta rt: September [...] Status Dates Carlos NOVAK Attending Provider Active Pricing Analyst Relationship Specialty Start Date End Date Mateus Burris [address] [place] [address] PCP - General Family Practice 11/12/19 Pricing Analyst Relationship Specialty [place] [address] [place] [address] PCP - General Family Medicine 09/09/20 Pricing Analyst Relationship Specialty [place] [address] [place] [address] PCP - General Family Medicine 09/09/20 Pricing Analyst Relationship Specialty Start [place] [address] [place] [address] PCP - General Family Medicine 09/09/20 Pricing Analyst Relationship Specialty Start Date End Date Carlos Cavazos MD [address] [place] [address] PCP - General Internal Medicine 02/20/22 Team [...] Monika Staley MD Primary Care Provider Active Pricing Analyst Relationship Specialty Start Date End Date Carlos Cavazos [address] [place] [phone] PCP - General 12/21/21 Rebecca Buck MD [address] [place] [address] Surgeon Urology 06/25/23 Team Status: Inactive Member [...] NOVAK Attending Provider, Referring Provi lupillo Active Pricing Analyst Relationship Specialty Start Date End Date Carlos Cavazos [address] [place] [phone] PCP - General 12/21/21 Rebecca Buck MD [address] [address] Surgeon Urology 06/25/23 Pricing Analyst Relationship Specialty Start Date End Date Carlos Cavazos [address] [place] [phone] PCP - General 12/21/21 Rebecca Buck MD [address] [address] Surgeon Urology 06/25/23 Pricing Analyst Relationship Specialty Start Date End Date Carlos Cavazos [address] [place] [phone] PCP - General 12/21/21 Rebecca Buck MD [address] [address] Surgeon Urology 06/25/23 Pricing Analyst Relationship Specialty Start Date End Date Carlos Cavazos [address] [place] [phone] PCP - General 12/21/21 Rebecca Buck MD [address] [address] Surgeon Urology 06/25/23 Pricing Analyst Relationship Specialty Start Date End Date Carlos Cavazos [address] [place] [phone] PCP - General 12/21/21 Rebecca Buck MD [address] [address] Surgeon Urology 06/25/23 Pricing Analyst Relationship Specialty Start Date End Date Carlos Cavazos [address] [place] [phone] PCP - General 12/21/21 Rebecca Buck MD [address] [address] Surgeon Urology 06/25/23 Team Status: Inactive Member Role Status Dates Dr. Monika Staley MD Primary Care Provider Active Start: March 13, 2024 End: March 13, 2024 [facility] Attending Provider Active Start: March 13, [...] March 17, 2024 End: March 17, 2024 [facility] Attending Provider Active Start: March 17, 2024 End: March 17, 2024 Team Status: Inactive Member Role Status Dates Dr. Monika Staley MD Primary Care Provider Active Start: March 18, 2024 End: March 18, 2024 [facility] Attending Provider Active Start: March 18, [...] March 20, 2024 End: March 20, 2024 [facility] Attending Provider Active Start: March 20, [...] March 27, 2024 End: March 27, 2024 [facility] Attending Provider Active Start: March 27, [...] Care Provider Active Start: July 07, 2024 [facility] Attending Provider Active Start: July 07, [...] Status: Active Member Role/Relationship Status Dates Dr. oMnika Staley MD Primary care physician Activ e [...] mg, Oral, ONCE Warfarin, 1 dose, On [facility] 10/29/21 at 1800, Indication of Use: Treatment-DVT/PE, [...] BE BASED ON THE PRIMARY CLINICAL RECORDS. [facility]. provides no warranty or guarantee of the accuracy or completeness of information in this document.
[2025-04-07 09:03] LABS: Prothrombin Time (Protime)PT. 17.4 SECONDS (11.7-14.9)
== END ==
LOC: OLS.SANC 04:00
PROVIDERS: PCP General Practice
DX: Z79.01 Long term (current) use of anticoagulants (principal)
CPT/HCPCS: 36415; 85610

== ENCOUNTER → 2025-04-09 | Outpatient (REF) | payer MEDICARE, MEDICAID, SELFPAY ==
--- OUTSIDE RECORDS SUMMARY | 2025-04-09 04:54 | XMS RPT_ITS | CCD ---
Author Organization [facility] Care Team Providers Care Chip Drier Name Role Phone Mateus Burris Primary Care [...] VALLADARES, Dr. Monika Horner Primary Care Provider [facility] Attending Provider [phone] Carlos Nelson Attending Provider Jonh Pascual MD, [...] MD, Dr. Monika Horner Primary Care Provider Anderssa VALLADARES, Dr. Calderon Attending Provider Jeanineva evan [...] Jonh Cardoza MD, Dr. Monika Horner Primary [facility] Physician Karon Corrales MD Attending Physician Unav ailCarlos Anglin Attending Physician Camelia Corrales MD, Karon Referring Provider Unava evan Staley MD, Dr. Monika Horner Primary [facility] Physician Carlos Nelson Attending Physician Unavailvanessa [...] OLS, Mahaveer Attending Unavail able [facility] [place] Attending Unavai lable Luís, Shiela Primary Care Unavailable Crisostomo OLS, Babbaljeet Attending Unavailable Luís, Shiela Primary Care Unavailable [facility] [place] Attending Unavai lable Luís, Shiela Primary Care [...] Unavailable Mukkamalla OLS, Mahaveer Attending Unavail able Lusí, Shiela Primary Care Unavailable Mukkamalla OLS, Mahaveer [...] Unavailable MukkKaron Hoover Attending Unavail able [place], [facility] Primary Care Unavailable NubiaKaron Stacy Attending Unavail able Luís, Shiela Primary Care Unavailable NubiaKaron Stacy Attending Unavail able Lu[place], [facility] Primary Care Unavailable MaribelCarlos Flood Attending Unavailable [place], [facility] Unavailable Allergies Allergy Classification Reported Allergen(s) Allergy Type Date of Onset Reaction(s) Facility (13 sources) [facility]: (15 sources) Alcohol Propensity to adverse reactions to drug 3 Rash, Hives, Other: See Comments, Other [facility] Work Phone: (1 source) Latex Drug Allergy 0 Rash [facility] (8 sources) Cortisone Drug Allergy 2 [facility] (7 sources) Latex Allergy to substance 0 Rash [facility] Medications Current Medications Medication Drug Class(es) Dates Sig (Normalized) Sig (Original) Acetaminophen (10 sources) Start: 10-21-2021 acetaminophen (TYLENOL) tablet 650 mg Start: 09-14-2021 acetaminophen (TYLENOL) 325 MG tablet 650 mg every 6 hours as needed 0 09/14/2021 Active take 2 tablets by [facility] every eight hours acetaminophen [...] Comment on above: [facility]. Antacid TABS (6 sources) [...] Comment on above: Take 1 capsule by [facility] three times daily. Complete Multi-Vitamin [...] Active docusate sodium 50 mg / sennosides, long term 8.6 mg oral tablet (1 source) Start: [...] once daily. Pentoxifylline (1 source) Blood [employer] PENTOXIFYLLINE ORAL Take by mouth. 0 Active Comment on above: Take by mouth. petrolatum 0.41 mg/mg topical ointment (1 source) Start : 08-20 white petrolatum (AQUAPHOR) 41 % topical ointment Apply to affected area once daily. 0 08/20/2021 Active Comment on above: Apply to affected ar ea once daily. 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, [address] PT Coag (PPP) [Time] 25.1 s High 11.7-14.9 [facility] Comment on above: Order Comment: 411-2 Performed By: #### L 300.3900 ####[facility] [address] [place], [address] Prothrombin Time w/INRon INR Coag (PPP) [Relative time] 2.3 {INR} Normal [facility] Comment on above: Order Comment: 411-2 Performed By: #### L 300.3900 ####[facility] [address] [place], [address] PT Coag (PPP) [Time] 25.5 s High 11.7-14.9 [facility] Comment on above: Order Comment: 411-2 Performed By: #### L 300.3900 ####[facility] [address] [place], [address] Prothrombin Time w/INRon INR Coag (PPP) [Relative time] 2.0 {INR} Normal [facility] Comment on above: Order Comment: 411.2 Performed By: #### L 300.3900 ####[facility] [address] [place], [address] PT Coag (PPP) [Time] 22.8 s High 11.7-14.9 [facility] Comment on above: Order Comment: 411.2 Performed By: #### L 300.3900 ####[facility] [address] [place], [address] Prothrombin Time w/INRon INR Coag (PPP) [Relative time] 1.7 {INR} Normal [facility] Comment on above: Order Comment: 411-2 Performed By: #### L 300.3900 ####[facility] [address] [place], [address] PT Coag (PPP) [Time] 20.5 s High 11.7-14.9 [facility] Comment on above: Order Comment: 411-2 Performed By: #### L 300.3900 ####[facility] [address] [place], [address] Prothrombin Time w/INRon INR Coag (PPP) [Relative time] 1.5 {INR} Normal [facility] Comment on above: Order Comment: 411.2 Performed By: #### L 300.3900 ####[facility] [address] [place], [address] PT Coag (PPP) [Time] 18.4 s High 11.7-14.9 [facility] Comment on above: Order Comment: 411.2 Performed By: #### L 300.3900 ####[facility] [address] [place], [address] Prothrombin Time w/INRon INR Coag (PPP) [Relative time] 1.8 {INR} Normal [facility] Comment on above: Order Comment: 411.2 Performed By: #### L 300.3900 ####[facility] [address] [place], [address] PT Coag (PPP) [Time] 21.2 s High 11.7-14.9 [facility] Comment on above: Order Comment: 411.2 Performed By: #### L 300.3900 ####[facility] [address] [place], [place], [phone] International normalized rat io (INR) calculationOrdered By: Carlos Cavazos on 03-02-2025 INR Coag (Bld) [Relative time] 2.2 {INR} [facility] Prothrombin Time w/INRon INR Coag (PPP) [Relative time] 2.2 {INR} Normal [facility] Comment on above: Order Comment: 411-2 Performed By: #### L 300.3900 ####[facility] [address] [place], [place], [phone] Prothrombin timeOrdered By: Carlos Cavazos on 03-02-2025 PT Coag (PPP) [Time] 25.3 s High 11.7-14.9 [facility] Comment on above: Order Comment: 411-2 Performed By: #### L 300.3900 ####[facility] [address] [place], [place], [phone] International normalized rat io (INR) calculationOrdered By: Karon Corrales on 02-26-2025 INR Coag (Bld) [Relative time] 2.2 {INR} [facility] Prothrombin Time w/INRon INR Coag (PPP) [Relative time] 2.2 {INR} Normal [facility] Comment on above: Order Comment: 411.2 Performed By: #### L 300.3900 ####[facility] [address] [place], [address] PT Coag (PPP) [Time] 24.5 s High 11.7-14.9 [facility] Comment on above: Order Comment: 411.2 Performed By: #### L 300.3900 ####[facility] [address] [place], [place], [phone] Prothrombin timeOrdered By: Karon Corrales on 02-26-2025 PT Coag (PPP) [Time] 24.5 s High 11.7-14.9 [facility] International normalized rat io (INR) calculationOrdered By: Karon Corrales on 02-23-2025 INR Coag (Bld) [Relative time] 2.0 {INR} [facility] Prothrombin Time w/INRon INR Coag (PPP) [Relative time] 2.0 {INR} Normal [facility] Comment on above: Order Comment: 411.2 Performed By: #### L 300.3900 ####[facility] [address] [place], [place], [address] PT Coag (PPP) [Time] 23.5 s High 11.7-14.9 [facility] Comment on above: Order Comment: 411.2 Performed By: #### L 300.3900 ####[facility] [address] [place], [place], [phone] Prothrombin timeOrdered By: Karon Corrales on 02-23-2025 PT Coag (PPP) [Time] 23.5 s High 11.7-14.9 [facility] International normalized rat io (INR) calculationOrdered By: Karon Corrales on 02-19-2025 INR Coag (Bld) [Relative time] 1.9 {INR} [facility] Prothrombin Time w/INRon INR Coag (PPP) [Relative time] 1.9 {INR} Normal [facility] Comment on above: Order Comment: 411.2 Performed By: #### L 300.3900 ####[facility] [address] [place], [address]) PT Coag (PPP) [Time] 21.8 s High 11.7-14.9 [facility] Comment on above: Order Comment: 411.2 Performed By: #### L 300.3900 ####[facility] [address] [place], [place], [address] Prothrombin timeOrdered By: Karon Corrales on 02-19-2025 PT Coag (PPP) [Time] 21.8 s High 11.7-14.9 [facility] International normalized rat io (INR) calculationOrdered By: Karon Corrales on 02-16-2025 INR Coag (Bld) [Relative time] 1.5 {INR} [facility] Prothrombin Time w/INRon INR Coag (PPP) [Relative time] 1.5 {INR} Normal [facility] Comment on above: Order Comment: 411.2 Performed By: #### L 300.3900 ####[facility] [address] [place], [place], [address] PT Coag (PPP) [Time] 18.6 s High 11.7-14.9 [facility] Comment on above: Order Comment: 411.2 Performed By: #### L 300.3900 ####[facility] [address] [place], [place], [address] Prothrombin timeOrdered By: Karon Corrales on 02-16-2025 PT Coag (PPP) [Time] 18.6 s High 11.7-14.9 [facility] International normalized rat io (INR) calculationOrdered By: Karon Corrales on 02-12-2025 INR Coag (Bld) [Relative time] 2.5 {INR} [facility] Prothrombin Time w/INRon INR Coag (PPP) [Relative time] 2.5 {INR} Normal [facility] Comment on above: Order Comment: 411.2 Performed By: #### L 300.3900 ####[facility] [address] [place], [address] PT Coag (PPP) [Time] 27.5 s High 11.7-14.9 [facility] Comment on above: Order Comment: 411.2 Performed By: #### L 300.3900 ####[facility] [address] [place], [address] Prothrombin timeOrdered By: Karon Corrales on 02-12-2025 PT Coag (PPP) [Time] 27.5 s High 11.7-14.9 [facility] International normalized rat io (INR) calculationOrdered By: Carlos Cavazos on 02-09-2025 INR Coag (Bld) [Relative time] 2.5 {INR} [facility] Prothrombin Time w/INRon INR Coag (PPP) [Relative time] 2.5 {INR} Normal [facility] Comment on above: Order Comment: 411-2 Performed By: #### L 300.3900 ####[facility] [address] [place], [address] INR Normal [facility] Comment on above: Order Comment: 411.2 Result Comment: MISS ING TUBE Performed By: #### L 300.3900 ####[facility] [address] [place], [address] PROTIME Normal 11.7-14.9 [facility] Comment on above: Order Comment: 411.2 Result Comment: MISS ING TUBE Performed By: #### L 300.3900 ####[facility] [address] [place], [address] Prothrombin timeOrdered By: Carlos Cavazos on 02-09-2025 PT Coag (PPP) [Time] 27.2 s High 11.7-14.9 [facility] Comment on above: Order Comment: 411-2 Performed By: #### L 300.3900 ####[facility] [address] [place], [address] International normalized rat io (INR) calculationOrdered By: Karon Corrales on 02-05-2025 INR Coag (Bld) [Relative time] 2.5 {INR} [facility] Prothrombin Time w/INRon INR Coag (PPP) [Relative time] 2.5 {INR} Normal [facility] Comment on above: Order Comment: 411.2 Performed By: #### L 300.3900 ####[facility] [address] [place], [address] PT Coag (PPP) [Time] 27.6 s High 11.7-14.9 [facility] Comment on above: Order Comment: 411.2 Performed By: #### L 300.3900 ####[facility] [address] [place], [place], [phone] Prothrombin timeOrdered By: Karon Corrales on 02-05-2025 PT Coag (PPP) [Time] 27.6 s High 11.7-14.9 [facility] International normalized rat io (INR) calculationOrdered By: Karon Corrales on 02-02-2025 INR Coag (Bld) [Relative time] 2.4 {INR} [facility] Prothrombin Time w/INRon INR Coag (PPP) [Relative time] 2.4 {INR} Normal [facility] Comment on above: Order Comment: 411.2 Performed By: #### L 300.3900 ####[facility] [address] [place], [address] PT Coag (PPP) [Time] 26.8 s High 11.7-14.9 [facility] Comment on above: Order Comment: 411.2 Performed By: #### L 300.3900 ####[facility] [address] [place], [place], [phone] Prothrombin timeOrdered By: Karon Corrales on 02-02-2025 PT Coag (PPP) [Time] 26.8 s High 11.7-14.9 [facility] International normalized rat io (INR) calculationOrdered By: Karon Corrales on 01-29-2025 INR Coag (Bld) [Relative time] 2.7 {INR} [facility] Prothrombin Time w/INRon INR Coag (PPP) [Relative time] 2.7 {INR} Normal [facility] Comment on above: Performed By: #### L 300.3900 ####[facility] [address] [place], [place], [phone]) PT Coag (PPP) [Time] 29.1 s High 11.7-14.9 [facility] Comment on above: Performed By: #### L 300.3900 ####[facility] [address] [place], [place], [phone]) Prothrombin timeOrdered By: Karon Corrales on 01-29-2025 PT Coag (PPP) [Time] 29.1 s High 11.7-14.9 [facility] International normalized rat io (INR) calculationOrdered By: Karon Corrales on 01-26-2025 INR Coag (Bld) [Relative time] 2.0 {INR} [facility] Prothrombin Time w/INRon INR Coag (PPP) [Relative time] 2.0 {INR} Normal [facility] Comment on above: Order Comment: 411.2 Performed By: #### L 300.3900 ####[facility] [address] [place], [place], [phone]) PT Coag (PPP) [Time] 23.1 s High 11.7-14.9 [facility] Comment on above: Order Comment: 411.2 Performed By: #### L 300.3900 ####[facility] [address] [place], [place], [phone]) Prothrombin timeOrdered By: Karon Corrales on 01-26-2025 PT Coag (PPP) [Time] 23.1 s High 11.7-14.9 [facility] International normalized rat io (INR) calculationOrdered By: Karon Corrales on 01-22-2025 INR Coag (Bld) [Relative time] 2.4 {INR} [facility] Prothrombin Time w/INRon INR Coag (PPP) [Relative time] 2.4 {INR} Normal [facility] Comment on above: Order Comment: 411.2 Performed By: #### L 300.3900 ####[facility] [address] [place], [address] PT Coag (PPP) [Time] 26.6 s High 11.7-14.9 [facility] Comment on above: Order Comment: 411.2 Performed By: #### L 300.3900 ####[facility] [address] [place], [address] Prothrombin timeOrdered By: Karon Corrales on 01-22-2025 PT Coag (PPP) [Time] 26.6 s High 11.7-14.9 [facility] International normalized rat io (INR) calculationOrdered By: Carlos Cavazos on 01-19-2025 INR Coag (Bld) [Relative time] 2.7 {INR} [facility] Prothrombin Time w/INRon INR Coag (PPP) [Relative time] 2.7 {INR} Normal [facility] Comment on above: Order Comment: 411-2 Performed By: #### L 300.3900 ####[facility] [address] [place], [address] PT Coag (PPP) [Time] 29.7 s High 11.7-14.9 [facility] Comment on above: Order Comment: 411-2 Performed By: #### L 300.3900 ####[facility] [address] [place], [address] Prothrombin timeOrdered By: Carlos Cavazos on 01-19-2025 PT Coag (PPP) [Time] 29.7 s High 11.7-14.9 [facility] International normalized rat io (INR) calculationOrdered By: Karon Corrales on 01-15-2025 INR Coag (Bld) [Relative time] 2.4 {INR} [facility] Prothrombin Time w/INRon INR Coag (PPP) [Relative time] 2.4 {INR} Normal [facility] Comment on above: Order Comment: 411.1 Performed By: #### L 300.3900 ####[facility] [address] [place], [place], [phone] PT Coag (PPP) [Time] 26.6 s High 11.7-14.9 [facility] Comment on above: Order Comment: 411.1 Performed By: #### L 300.3900 ####[facility] [address] [place], [place], [address] Prothrombin timeOrdered By: Karon Corrales on 01-15-2025 PT Coag (PPP) [Time] 26.6 s High 11.7-14.9 [facility] KEPPRA (LEVETIRACETAM)on KEPPRA 30.1 ug/mL Normal 10.0-40.0 [facility] Comment on above: Order Comment: 411.1 Result Comment: Perf ormed at: [facility] [address] [id number] Director: Alpesh Vázquez MD, Phone: [phone] Performed By: #### L 5350.0000, A315.7563 ####[facility] [address] [place], [place], [address] International normalized rat io (INR) calculationOrdered By: Karon Corrales on 01-12-2025 INR Coag (Bld) [Relative time] 2.3 {INR} [facility] LevetiracetamOrdered By: Carla Corrales on 01-12-2025 levETIRAcetam [Mass/Vol] 30.1 ug/mL 10.0-40.0 [facility] Comment on above: Performed at: - [facility] [address] [id number] Director: Alpesh Vázquez MD, Phone: [phone] Prothrombin Time w/INRon INR Coag (PPP) [Relative time] 2.3 {INR} Normal [facility] Comment on above: Order Comment: 411.1 Performed By: #### L 3310.0000, L300.3900 ####[facility] [address] [place], [address] PT Coag (PPP) [Time] 26.1 s High 11.7-14.9 [facility] Comment on above: Order Comment: 411.1 Performed By: #### L 3310.0000, L300.3900 ####[facility] [address] [place], [address] Prothrombin timeOrdered By: Karon Corrales on 01-12-2025 PT Coag (PPP) [Time] 26.1 s High 11.7-14.9 [facility] KEPPRA (LEVETIRACETAM)on KEPPRA 27.6 ug/mL Normal 10.0-40.0 [facility] Comment on above: Order Comment: 411.1 Result Comment: Perf ormed at: - [facility] [address] [id number] Director: Alpesh Vázquez MD, Phone: [phone] Performed By: #### L 3310.0000, L300.3900 ####[facility] [address] [place], [address] International normalized rat io (INR) calculationOrdered By: Karon Corrales on 01-08-2025 INR Coag (Bld) [Relative time] 2.2 {INR} [facility] Prothrombin Time w/INRon INR Coag (PPP) [Relative time] 2.2 {INR} Normal [facility] Comment on above: Order Comment: 411.1 Performed By: #### L 300.3900 ####[facility] [address] [place], [address] PT Coag (PPP) [Time] 24.5 s High 11.7-14.9 [facility] Comment on above: Order Comment: 411.1 Performed By: #### L 300.3900 ####[facility] [address] [place], [address] Prothrombin timeOrdered By: Karon Corrales on 01-08-2025 PT Coag (PPP) [Time] 24.5 s High 11.7-14.9 [facility] International normalized rat io (INR) calculationOrdered By: Karon Corrales on 01-06-2025 INR Coag (Bld) [Relative time] 3.2 {INR} [facility] LevetiracetamOrdered By: Carla Corralse on 01-06-2025 levETIRAcetam [Mass/Vol] 27.6 ug/mL 10.0-40.0 [facility] Comment on above: Performed at: [address] [id number] Director: Alpesh Vázquez MD, Phone: [phone] Prothrombin Time w/INRon INR Coag (PPP) [Relative time] 3.2 {INR} Normal [facility] Comment on above: Order Comment: 411.1 Performed By: #### L 3310.0000, L300.3900 ####[facility] [address] [place], [address] PT Coag (PPP) [Time] 33.1 s High 11.7-14.9 [facility] Comment on above: Order Comment: 411.1 Performed By: #### L 3310.0000, L300.3900 ####[facility] [address] [place], [place], [address] Prothrombin timeOrdered By: Karon Corrales on 01-06-2025 PT Coag (PPP) [Time] 33.1 s High 11.7-14.9 [facility] International normalized rat io (INR) calculationOrdered By: Karon Corrales on 01-01-2025 INR Coag (Bld) [Relative time] 2.7 {INR} [facility] Prothrombin Time w/INRon INR Coag (PPP) [Relative time] 2.7 {INR} Normal [facility] Comment on above: Order Comment: 411.1 Performed By: #### L 3003900 ####[facility] [address] [place], [place], [address] Prothrombin timeOrdered By: Karon Corrales on 01-01-2025 PT Coag (PPP) [Time] 29.1 s High 11.7-14.9 [facility] Comment on above: Order Comment: 411.1 Performed By: #### L [id number] ####[facility] [address] [place], [place], [address] KEPPRA (LEVETIRACETAM)on KEPPRA 31.8 ug/mL Normal 10.0-40.0 [facility] Comment on above: Order Comment: 411-1 Result Comment: [facility]f [facility]med at: [facility] [place], [place] [id number] Director: Alpesh Vázquez MD, Phone: [phone] Performed By: #### L 3310.0000, L311.3158 ####[facility] [address] [place], [place], [address] International normalized rat io (INR) calculationOrdered By: Carlos Cavazos on 12-29-2024 INR Coag (Bld) [Relative time] 3.3 {INR} [facility] KEPPRA (LEVETIRACETAM)on KEPPRA 33.3 ug/mL Normal 10.0-40.0 [facility] Comment on above: Order Comment: 411.1 Result Comment: Perf ormed at: [employer] [facility] [address] [id number] Director: Alpesh Vázquez MD, Phone: [phone] Performed By: #### L 3310.0000 ####[facility] [address] [facility] [address] LevetiracetamOrdered By: Ted Cavazos on 12-29-2024 levETIRAcetam [Mass/Vol] 31.8 ug/mL 10.0-40.0 [facility] Comment on above: Performed at: [employer] [address] [id number] Director: Alpesh Vázquez MD, Phone: [phone] Prothrombin Time w/INRon INR Coag (PPP) [Relative time] 3.3 {INR} Normal [facility] Comment on above: Order Comment: 411-1 Performed By: #### L 3310.0000, L300.3900 ####[facility] [address] [place], [address] Prothrombin timeOrdered By: Carlos Cavazos on 12-29-2024 PT Coag (PPP) [Time] 34.0 s High 11.7-14.9 [facility] Comment on above: Order Comment: 411-1 Performed By: #### L 3310.0000, L300.3900 ####[facility] [address] [place], [place], [address] LevetiracetamOrdered By: Carla Corrales on 12-26-2024 levETIRAcetam [Mass/Vol] 33.3 ug/mL 10.0-40.0 [facility] Comment on above: Performed at: [employer] [address], [place] [id number] Director: Alpesh Vázquez MD, Phone: [phone] International normalized rat io (INR) calculationOrdered By: Karon Corrlaes on 12-25-2024 INR Coag (Bld) [Relative time] 2.8 {INR} [facility] Prothrombin Time w/INRon INR Coag (PPP) [Relative time] 2.8 {INR} Normal [facility] Comment on above: Order Comment: 411.1 Performed By: #### L 300.3900 ####[facility] [address] [place], [address] Prothrombin timeOrdered By: Karon Corrales on 12-25-2024 PT Coag (PPP) [Time] 30.0 s High 11.7-14.9 [facility] Comment on above: Order Comment: 411.1 Performed By: #### L 300.3900 ####[facility] [address] [place], [address] Anion gap in Serum or Plasma Ordered By: Carlos Cavazos on 12-24-2024 Anion gap [Moles/Vol] 13 mmol/L 09-18 [facility] BUN/creatinine ratioOrdered By: Carlos Cavazos on 12-24-2024 Urea nitrogen/Creatinine [Mass ratio] 19.2 mg/mg 02-23 [facility] Basic Metabolic Profile (BMP )on 12-24-2024 BUN/CRE 19.2 RATIO Normal 02-23 [facility] Comment on above: Order Comment: 411-1 Performed By: #### L 500.2500, L100.0500 ####[facility] [address] [place], [address] Calcium [Mass/Vol] 8.8 mg/dL Normal 7.6-11.0 [facility] Comment on above: Order Comment: 411-1 Performed By: #### L 500.2500, L100.0500 ####[facility] [address] [place], [address] Chloride [Moles/Vol] 103 mmol/L Normal 98-108 [facility] Comment on above: Order Comment: 411-1 Performed By: #### L 500.2500, L100.0500 ####[facility] [address] [place], [address] CO2 [Moles/Vol] 23.7 mmol/L Normal 21.0-32.0 [facility] Comment on above: Order Comment: 411-1 Performed By: #### L 500.2500, L100.0500 ####[facility] [address] [place], [address] Creatinine [Mass/Vol] 0.82 mg/dL Normal 0.70-1.20 [facility] Comment on above: Order Comment: 411-1 Performed By: #### L 500.2500, L100.0500 ####[facility] [address] [place], [address] GAP 13 Normal 5-15 [facility] Comment on above: Order Comment: 411-1 Performed By: #### L 500.2500, L100.0500 ####[facility] [address] [place], [address] GFR/1.73 sq M.predicted among non-blacks MDRD (S/P/Bld) [Vol rate/Area] 93 mL/min/{1.73_m2} Normal >60 [facility] Comment on above: Order Comment: 411-1 Result Comment: mL/m in/1.73m2 CKD-EPI Creatinine Equation (2020) Performed By: #### L 500.2500, L100.0500 ####[facility] [address] [place], [address] Glucose [Mass/Vol] 88 mg/dL Normal 70-99 [facility] Comment on above: Order Comment: 411-1 Performed By: #### L 500.2500, L100.0500 ####[facility] [address] [place], [address] Potassium [Moles/Vol] 4.2 mmol/L Normal 3.3-5.1 [facility] Comment on above: Order Comment: 411-1 Performed By: #### L 500.2500, L100.0500 ####[facility] [address] [place], [address] Sodium [Moles/Vol] 139 mmol/L Normal 133-145 [facility] Comment on above: Order Comment: 411-1 Performed By: #### L 500.2500, L100.0500 ####[facility] [address] [place], [address] Urea nitrogen [Mass/Vol] 16 mg/dL Normal 4-19 [facility] Comment on above: Order Comment: 411-1 Performed By: #### L 500.2500, L100.0500 ####[facility] [address] [place], [address] CBC-Complete Blood Cnt No Di ffon 12-24-2024 Erythrocyte distribution width (RBC) [Ratio] 15.4 % High 11.6-14.6 [facility] Comment on above: Order Comment: 411-1 Performed By: #### L 500.2500, L100.0500 ####[facility] [address] [place], [address] Hematocrit (Bld) [Volume fraction] 39.8 % Low 40-54 [facility] Comment on above: Order Comment: 411-1 Performed By: #### L 500.2500, L100.0500 ####[facility] [address] [place], [address] Hemoglobin (Bld) [Mass/Vol] 12.4 g/dL Low 13.0-16.5 [facility] Comment on above: Order Comment: 411-1 Performed By: #### L 500.2500, L100.0500 ####[facility] [address] [place], [address] MCH (RBC) [Entitic mass] 26.6 pg Low 27.0-32.0 [facility] Comment on above: Order Comment: 411-1 Performed By: #### L 500.2500, L100.0500 ####[facility] [address] [place], [address] MCHC (RBC) [Mass/Vol] 31.2 g/dL Low 32-36 [facility] Comment on above: Order Comment: 411-1 Performed By: #### L 500.2500, L100.0500 ####[facility] [address] [place], [address] MCV (RBC) [Entitic vol] 85.4 fL Normal 80-94 [facility] Comment on above: Order Comment: 411-1 Performed By: #### L 500.2500, L100.0500 ####[facility] [address] [place], [address] Platelet mean volume (Bld) [Entitic vol] 10.4 fL Normal 6.2-12.0 [facility] Comment on above: Order Comment: 411-1 Performed By: #### L 500.2500, L100.0500 ####[facility] [address] [place], [address] Platelets (Bld) [#/Vol] 290 10*3/uL Normal 150-450 [facility] Comment on above: Order Comment: 411-1 Performed By: #### L 500.2500, L100.0500 ####[facility] [address] [place], [address] RBC (Bld) [#/Vol] 4.66 10*6/uL Normal 4.6-6.2 [facility] Comment on above: Order Comment: 411-1 Performed By: #### L 500.2500, L100.0500 ####[facility] [facility] [address] [place], [address] RDW SD 48.1 fl High 35.1-43.9 [facility] Comment on above: Order Comment: 411-1 Performed By: #### L 500.2500, L100.0500 ####[facility] [address] [place], [address] WBC (Bld) [#/Vol] 16.6 10*3/uL High 4.4-11.0 [facility] Comment on above: Order Comment: 411-1 Performed By: #### L 500.2500, L100.0500 ####[facility] [address] [place], [address] Carbon dioxide, total [Moles /volume] in Central venous bloodOrdered By: Carlos Cavazos on 12-24-2024 CO2 [Moles/Vol] 23.7 mmol/L 21.0-32.0 [facility] Chloride assayOrdered By: Sharif Crouch on 12-24-2024 Chloride [Moles/Vol] 103 mmol/L 98-108 [facility] Erythrocyte distribution wid th ratioOrdered By: Carlos Cavazos on 12-24-2024 Erythrocyte distribution width (RBC) [Ratio] 15.4 % High 11.6-14.6 [facility] Erythrocyte distribution wid th standard deviationOrdered By: Carlos Cavazos on 12-24-2024 Erythrocyte distribution width (RBC) [Ratio] 48.1 fl High 35.1-43.9 [facility] Glomerular filtration rate ( GFR) estimation/1.73 sq m using serum, plasma, or whole bOrdered By: Carlos Cavazos on 12-24-2024 GFR/1.73 sq M.predicted among non-blacks MDRD (S/P/Bld) [Vol rate/Area] 93 mL/min/{1.73_m2} >60 [facility] Comment on above: mL/min/1.73m2 CKD-EP I Creatinine Equation (2020) Hematocrit Auto (Bld) [Volum e fraction]Ordered By: Carlos Cavazos on 12-24-2024 Hematocrit (Bld) [Volume fraction] 39.8 % Low 40-54 [facility] Hemoglobin measurementOrdere d By: Carlos Cavazos on 12-24-2024 Hemoglobin (Bld) [Mass/Vol] 12.4 g/dL Low 13.0-16.5 [facility] MCV (mean corpuscular volume ) determinationOrdered By: Carlos Cavazos on 12-24-2024 MCV (RBC) [Entitic vol] 85.4 fL 80-94 [facility] Mean corpuscular hemoglobin (MCH) determinationOrdered By: Carlos Cavazos on 12-24-2024 MCH (RBC) [Entitic mass] 26.6 pg Low 27.0-32.0 [facility] Mean corpuscular hemoglobin concentration (MCHC) determinationOrdered By: Carlos Cavazos on 12-24-2024 MCHC (RBC) [Mass/Vol] 31.2 g/dL Low 32-36 [facility] Mean platelet volume determi nationOrdered By: Carlos Cavazos on 12-24-2024 Platelet mean volume (Bld) [Entitic vol] 10.4 fL 6.2-12.0 [facility] Platelet countOrdered By: Sharif Crouch on 12-24-2024 Platelets (Bld) [#/Vol] 290 10*3/uL 150-450 [facility] Potassium measurement (mass/ volume)Ordered By: Carlos Cavazos on 12-24-2024 Potassium (Unsp spec) [Mass/Vol] 4.2 mmol/L 3.3-5.1 [facility] RBC Auto (Bld) [#/Vol]Ordere d By: Carlos Cavazos on 12-24-2024 RBC (Bld) [#/Vol] 4.66 10*6/uL 4.6-6.2 [facility] Serum creatinine measurement (mass/volume)Ordered By: Carlos Cavazos on 12-24-2024 Creatinine [Mass/Vol] 0.82 mg/dL 0.70-1.20 [facility] Serum glucose measurement (m ass/volume)Ordered By: Carlos Cavazos on 12-24-2024 Glucose [Mass/Vol] 88 mg/dL 70-99 [facility] Serum or plasma calcium oral urement (mass/volume)Ordered By: Carlos Cavazos on 12-24-2024 Calcium [Mass/Vol] 8.8 mg/dL 7.6-11.0 [facility] Serum or plasma urea nitroge n measurement (mass/volume)Ordered By: Carlos Cavazos on 12-24-2024 Urea nitrogen [Mass/Vol] 16 mg/dL 4-19 [facility] Sodium levelOrdered By: Moe Cavazos on 12-24-2024 Sodium [Moles/Vol] 139 mmol/L 133-145 [facility] White blood cell (WBC) count Ordered By: Carlos Cavazos on 12-24-2024 WBC (Bld) [#/Vol] 16.6 10*3/uL High 4.4-11.0 [facility] International normalized rat io (INR) calculationOrdered By: Karon Corrales on 12-22-2024 INR Coag (Bld) [Relative time] 2.6 {INR} [facility] Prothrombin Time w/INRon INR Coag (PPP) [Relative time] 2.6 {INR} Normal [facility] Comment on above: Order Comment: 411.1 Performed By: #### L 300.7827 ####[facility] [address] [facility] [place], [place], [id number] PT Coag (PPP) [Time] 28.8 s High 11.7-14.9 [facility] Comment on above: Order Comment: 411.1 Performed By: #### L 300.3900 ####[facility] [address] [facility] [place], [place], [phone] Prothrombin timeOrdered By: Karon Corrales on 12-22-2024 PT Coag (PPP) [Time] 28.8 s High 11.7-14.9 [facility] International normalized rat io (INR) calculationOrdered By: Karon Corrales on 12-18-2024 INR Coag (Bld) [Relative time] 2.4 {INR} [facility] Prothrombin Time w/INRon INR Coag (PPP) [Relative time] 2.4 {INR} Normal [facility] Comment on above: Order Comment: 411.1 Performed By: #### L 300.3900 ####[facility] [address] [place], [place], [id number] PT Coag (PPP) [Time] 26.7 s High 11.7-14.9 [facility] Comment on above: Order Comment: 411.1 Performed By: #### L 300.3900 ####[facility] [address] [place], [place], [phone] Prothrombin timeOrdered By: Karon Corrales on 12-18-2024 PT Coag (PPP) [Time] 26.7 s High 11.7-14.9 [facility] International normalized rat io (INR) calculationOrdered By: Karon Corrales on 12-15-2024 INR Coag (Bld) [Relative time] 2.3 {INR} [facility] Prothrombin Time w/INRon INR Coag (PPP) [Relative time] 2.3 {INR} Normal [facility] Comment on above: Order Comment: 411.1 Performed By: #### L 300.3900 ####[facility] [address] [place], [place], [phone] Prothrombin timeOrdered By: Karon Corrales on 12-15-2024 PT Coag (PPP) [Time] 25.7 s High 11.7-14.9 [facility] Comment on above: Order Comment: 411.1 Performed By: #### L 300.3900 ####[facility] [address] [place], [place], [phone] International normalized rat io (INR) calculationOrdered By: Carlos Cavazos on 12-11-2024 INR Coag (Bld) [Relative time] 2.2 {INR} [facility] Prothrombin Time w/INRon INR Coag (PPP) [Relative time] 2.2 {INR} Normal [facility] Comment on above: Order Comment: 411-1 Performed By: #### L 300.3900 ####[facility] [address] [place], [address] Prothrombin timeOrdered By: Carlos Cavazos on 12-11-2024 PT Coag (PPP) [Time] 24.7 s High 11.7-14.9 [facility] Comment on above: Order Comment: 411-1 Performed By: #### L 300.3900 ####[facility] [address] [place], [place], [phone] International normalized rat io (INR) calculationOrdered By: Karon Corraels on 12-08-2024 INR Coag (Bld) [Relative time] 2.2 {INR} [facility] Prothrombin Time w/INRon INR Coag (PPP) [Relative time] 2.2 {INR} Normal [facility] Comment on above: Order Comment: 411.1 Performed By: #### L 300.3900 ####[facility] [address] [place], [address] PT Coag (PPP) [Time] 25.0 s High 11.7-14.9 [facility] Comment on above: Order Comment: 411.1 Performed By: #### L 300.3900 ####[facility] [address] [place], [place], [address] Prothrombin timeOrdered By: Karon Corrales on 12-08-2024 PT Coag (PPP) [Time] 25.0 s High 11.7-14.9 [facility] International normalized rat io (INR) calculationOrdered By: Karon Corrales on 12-04-2024 INR Coag (Bld) [Relative time] 2.3 {INR} [facility] Prothrombin Time w/INRon INR Coag (PPP) [Relative time] 2.3 {INR} Normal [facility] Comment on above: Order Comment: 411.1 Performed By: #### L 300.3900 ####[facility] [address] [place], [address] PT Coag (PPP) [Time] 25.9 s High 11.7-14.9 [facility] Comment on above: Order Comment: 411.1 Performed By: #### L 300.3900 ####[facility] [address] [place], [address] Prothrombin timeOrdered By: Karon Corrales on 12-04-2024 PT Coag (PPP) [Time] 25.9 s High 11.7-14.9 [facility] International normalized rat io (INR) calculationOrdered By: Karon Corrales on 12-02-2024 INR Coag (Bld) [Relative time] 2.5 {INR} [facility] Prothrombin Time w/INRon INR Coag (PPP) [Relative time] 2.5 {INR} Normal [facility] Comment on above: Order Comment: 411.1 Performed By: #### L 300.3900 ####[facility] [address] [place], [address] PT Coag (PPP) [Time] 27.3 s High 11.7-14.9 [facility] Comment on above: Order Comment: 411.1 Performed By: #### L 300.3900 ####[facility] [address] [place], [address] Prothrombin timeOrdered By: Karon Corrales on 12-02-2024 PT Coag (PPP) [Time] 27.3 s High 11.7-14.9 [facility] International normalized rat io (INR) calculationOrdered By: Carlos Cavazos on 12-01-2024 INR Coag (Bld) [Relative time] 2.3 {INR} [facility] Prothrombin Time w/INRon INR Coag (PPP) [Relative time] 2.3 {INR} Normal [facility] Comment on above: Order Comment: 411-1 Performed By: #### L 300.3900 ####[facility] [address] [place], [address] PT Coag (PPP) [Time] 26.0 s High 11.7-14.9 [facility] Comment on above: Order Comment: 411-1 Performed By: #### L 300.3900 ####[facility] [address] [place], [address] Prothrombin timeOrdered By: Carlos Cavazos on 12-01-2024 PT Coag (PPP) [Time] 26.0 s High 11.7-14.9 [facility] International normalized rat io (INR) calculationOrdered By: Carlos Cavazos on 11-28-2024 INR Coag (Bld) [Relative time] 3.1 {INR} [facility] Prothrombin Time w/INRon INR Coag (PPP) [Relative time] 3.1 {INR} Normal [facility] Comment on above: Order Comment: 411-1 Performed By: #### L 300.3900 ####[facility] [address] [place], [address] PT Coag (PPP) [Time] 32.8 s High 11.7-14.9 [facility] Comment on above: Order Comment: 411-1 Performed By: #### L 300.3900 ####[facility] [address] [place], [address] Prothrombin timeOrdered By: Carlos Cavazos on 11-28-2024 PT Coag (PPP) [Time] 32.8 s High 11.7-14.9 [facility] International normalized rat io (INR) calculationOrdered By: Karon Corrales on 11-27-2024 INR Coag (Bld) [Relative time] 3.3 {INR} [facility] Prothrombin Time w/INRon INR Coag (PPP) [Relative time] 3.3 {INR} Normal [facility] Comment on above: Order Comment: 411.1 Performed By: #### L 300.3900 ####[facility] [address] [place], [place], [phone] PT Coag (PPP) [Time] 34.3 s High 11.7-14.9 [facility] Comment on above: Order Comment: 411.1 Performed By: #### L 300.3900 ####[facility] [address] [place], [place], [phone](179) Prothrombin timeOrdered By: Karon Corrales on 11-27-2024 PT Coag (PPP) [Time] 34.3 s High 11.7-14.9 [facility] International normalized rat io (INR) calculationOrdered By: Karon Corrales on 11-24-2024 INR Coag (Bld) [Relative time] 2.8 {INR} [facility] Prothrombin Time w/INRon INR Coag (PPP) [Relative time] 2.8 {INR} Normal [facility] Comment on above: Order Comment: 411.2 Performed By: #### L 300.3900 ####[facility] [address] [place], [place], [phone] PT Coag (PPP) [Time] 30.0 s High 11.7-14.9 [facility] Comment on above: Order Comment: 411.2 Performed By: #### L 300.3900 ####[facility] [address] [place], [place], [phone](167) Prothrombin timeOrdered By: Karon Corrales on 11-24-2024 PT Coag (PPP) [Time] 30.0 s High 11.7-14.9 [facility] International normalized rat io (INR) calculationOrdered By: Karon Corrales on 11-20-2024 INR Coag (Bld) [Relative time] 3.0 {INR} [facility] Prothrombin Time w/INRon INR Coag (PPP) [Relative time] 3.0 {INR} Normal [facility] Comment on above: Order Comment: 411.2 Performed By: #### L 300.3900 ####[facility] [address] [place], [place], [phone] PT Coag (PPP) [Time] 32.0 s High 11.7-14.9 [facility] Comment on above: Order Comment: 411.2 Performed By: #### L 300.3900 ####[facility] [address] [place], [place], [phone] Prothrombin timeOrdered By: Karon Corrales on 11-20-2024 PT Coag (PPP) [Time] 32.0 s High 11.7-14.9 [facility] International normalized rat io (INR) calculationOrdered By: Karon Corrales on 11-17-2024 INR Coag (Bld) [Relative time] 2.9 {INR} [facility] Prothrombin Time w/INRon INR Coag (PPP) [Relative time] 2.9 {INR} Normal [facility] Comment on above: Order Comment: 411.2 Performed By: #### L 300.3900 ####[facility] [address] [place], [place], [phone] PT Coag (PPP) [Time] 30.7 s High 11.7-14.9 [facility] Comment on above: Order Comment: 411.2 Performed By: #### L 300.3900 ####[facility] [address] [place], [place], [phone](369) Prothrombin timeOrdered By: Karon Corrales on 11-17-2024 PT Coag (PPP) [Time] 30.7 s High 11.7-14.9 [facility] International normalized rat io (INR) calculationOrdered By: Karon Corrales on 11-13-2024 INR Coag (Bld) [Relative time] 2.2 {INR} [facility] Prothrombin Time w/INRon INR Coag (PPP) [Relative time] 2.2 {INR} Normal [facility] Comment on above: Order Comment: 411.2 Performed By: #### L 300.3900 ####[facility] [address] [place], [place], [phone] PT Coag (PPP) [Time] 24.7 s High 11.7-14.9 [facility] Comment on above: Order Comment: 411.2 Performed By: #### L 300.3900 ####[facility] [address] [place], [place], [phone](223) Prothrombin timeOrdered By: Karon Corrales on 11-13-2024 PT Coag (PPP) [Time] 24.7 s High 11.7-14.9 [facility] International normalized rat io (INR) calculationOrdered By: Karon Corrales on 11-10-2024 INR Coag (Bld) [Relative time] 2.6 {INR} [facility] Prothrombin Time w/INRon INR Coag (PPP) [Relative time] 2.6 {INR} Normal [facility] Comment on above: Order Comment: 411.2 Performed By: #### L 300.3900 ####[facility] [address] [place], [address] PT Coag (PPP) [Time] 28.7 s High 11.7-14.9 [facility] Comment on above: Order Comment: 411.2 Performed By: #### L 300.3900 ####[facility] [address] [place], [place], [phone] Prothrombin timeOrdered By: Karon Corrales on 11-10-2024 PT Coag (PPP) [Time] 28.7 s High 11.7-14.9 [facility] International normalized rat io (INR) calculationOrdered By: Karon Corrales on 11-06-2024 INR Coag (Bld) [Relative time] 3.1 {INR} [facility] Prothrombin Time w/INRon INR Coag (PPP) [Relative time] 3.1 {INR} Normal [facility] Comment on above: Order Comment: 411.2 Performed By: #### L 300.3900 ####[facility] [address] [place], [address] Prothrombin timeOrdered By: Karon Corrales on 11-06-2024 PT Coag (PPP) [Time] 33.0 s High 11.7-14.9 [facility] Comment on above: Order Comment: 411.2 Performed By: #### L 300.3900 ####[facility] [address] [place], [address] International normalized rat io (INR) calculationOrdered By: Carlos Cavazos on 11-03-2024 INR Coag (Bld) [Relative time] 3.0 {INR} [facility] Prothrombin Time w/INRon INR Coag (PPP) [Relative time] 3.0 {INR} Normal [facility] Comment on above: Order Comment: 411-2 Performed By: #### L 300.3900 ####[facility] [address] [place], [address] PT Coag (PPP) [Time] 31.4 s High 11.7-14.9 [facility] Comment on above: Order Comment: 411-2 Performed By: #### L 300.3900 ####[facility] [address] [place], [address] Prothrombin timeOrdered By: Carlos Cavazos on 11-03-2024 PT Coag (PPP) [Time] 31.4 s High 11.7-14.9 [facility] International normalized rat io (INR) calculationOrdered By: Karon Corrales on 10-30-2024 INR Coag (Bld) [Relative time] 2.4 {INR} [facility] Prothrombin Time w/INRon INR Coag (PPP) [Relative time] 2.4 {INR} Normal [facility] Comment on above: Performed By: #### L 300.3900 ####[facility] [address] [place], [place], [phone] PT Coag (PPP) [Time] 26.3 s High 11.7-14.9 [facility] Comment on above: Performed By: #### L 300.3900 ####[facility] [address] [place], [place], [phone] Prothrombin timeOrdered By: Karon Corrales on 10-30-2024 PT Coag (PPP) [Time] 26.3 s High 11.7-14.9 [facility] International normalized rat io (INR) calculationOrdered By: Karon Corrales on 10-27-2024 INR Coag (Bld) [Relative time] 2.2 {INR} [facility] Prothrombin Time w/INRon INR Coag (PPP) [Relative time] 2.2 {INR} Normal [facility] Comment on above: Order Comment: 411.2 Performed By: #### L 300.3900 ####[facility] [address] [place], [place], [phone] Prothrombin timeOrdered By: Karon Corrales on 10-27-2024 PT Coag (PPP) [Time] 24.5 s High 11.7-14.9 [facility] Comment on above: Order Comment: 411.2 Performed By: #### L 300.3900 ####[facility] [address] [place], [address] International normalized rat io (INR) calculationOrdered By: Karon Corrales on 10-23-2024 INR Coag (Bld) [Relative time] 2.5 {INR} [facility] Prothrombin Time w/INRon INR Coag (PPP) [Relative time] 2.5 {INR} Normal [facility] Comment on above: Order Comment: 411.2 Performed By: #### L 300.3900 ####[facility] [address] [place], [address] PT Coag (PPP) [Time] 27.9 s High 11.7-14.9 [facility] Comment on above: Order Comment: 411.2 Performed By: #### L 300.3900 ####[facility] [address] [place], [address] Prothrombin timeOrdered By: Karon Corrales on 10-23-2024 PT Coag (PPP) [Time] 27.9 s High 11.7-14.9 [facility] International normalized rat io (INR) calculationOrdered By: Karon Corrales on 10-20-2024 INR Coag (Bld) [Relative time] 3.1 {INR} [facility] Prothrombin Time w/INRon INR Coag (PPP) [Relative time] 3.1 {INR} Normal [facility] Comment on above: Order Comment: 411.2 Performed By: #### L 300.3900 ####[facility] [address] [place], [address] PT Coag (PPP) [Time] 32.8 s High 11.7-14.9 [facility] Comment on above: Order Comment: 411.2 Performed By: #### L 300.3900 ####[facility] [address], [address] Prothrombin timeOrdered By: Karon Corrales on 10-20-2024 PT Coag (PPP) [Time] 32.8 s High 11.7-14.9 [facility] International normalized rat io (INR) calculationOrdered By: Karon Corrales on 10-16-2024 INR Coag (Bld) [Relative time] 2.8 {INR} [facility] Prothrombin Time w/INRon INR Coag (PPP) [Relative time] 2.8 {INR} Normal [facility] Comment on above: Order Comment: 411.2 Performed By: #### L 300.3900 ####[facility] [address] [place], [place], [phone] PT Coag (PPP) [Time] 30.4 s High 11.7-14.9 [facility] Comment on above: Order Comment: 411.2 Performed By: #### L 300.3900 ####[facility] [address] [place], [address] Prothrombin timeOrdered By: Karon Corrales on 10-16-2024 PT Coag (PPP) [Time] 30.4 s High 11.7-14.9 [facility] International normalized rat io (INR) calculationOrdered By: Carlos Cavazos on 10-13-2024 INR Coag (Bld) [Relative time] 1.9 {INR} [facility] Prothrombin Time w/INRon INR Coag (PPP) [Relative time] 1.9 {INR} Normal [facility] Comment on above: Order Comment: 411-2 Performed By: #### L 300.3900 ####[facility] [address] [place], [place], [phone] PT Coag (PPP) [Time] 22.4 s High 11.7-14.9 [facility] Comment on above: Order Comment: 411-2 Performed By: #### L 300.3900 ####[facility] [address] [place], [place], [phone] Prothrombin timeOrdered By: Carlos Cavazos on 10-13-2024 PT Coag (PPP) [Time] 22.4 s High 11.7-14.9 [facility] International normalized rat io (INR) calculationOrdered By: Karon Corrales on 10-09-2024 INR Coag (Bld) [Relative time] 3.0 {INR} [facility] Prothrombin Time w/INRon INR Coag (PPP) [Relative time] 3.0 {INR} Normal [facility] Comment on above: Order Comment: 411.2 Performed By: #### L 300.3900 ####[facility] [address] [place], [address] Prothrombin timeOrdered By: Karon Corrales on 10-09-2024 PT Coag (PPP) [Time] 31.8 s High 11.7-14.9 [facility] Comment on above: Order Comment: 411.2 Performed By: #### L 300.3900 ####[facility] [address] [place], [address] International normalized rat io (INR) calculationOrdered By: Carlos Cavazos on 10-06-2024 INR Coag (Bld) [Relative time] 2.7 {INR} [facility] Prothrombin Time w/INRon INR Coag (PPP) [Relative time] 2.7 {INR} Normal [facility] Comment on above: Order Comment: 411-2 Performed By: #### L 300.3900 ####[facility] [address] [place], [address] PT Coag (PPP) [Time] 29.6 s High 11.7-14.9 [facility] Comment on above: Order Comment: 411-2 Performed By: #### L 300.3900 ####[facility] [address] [place], [address] Prothrombin timeOrdered By: Carlos Cavazos on 10-06-2024 PT Coag (PPP) [Time] 29.6 s High 11.7-14.9 [facility] International normalized rat io (INR) calculationOrdered By: Karon Corrales on 10-02-2024 INR Coag (Bld) [Relative time] 2.3 {INR} [facility] Prothrombin Time w/INRon INR Coag (PPP) [Relative time] 2.3 {INR} Normal [facility] Comment on above: Order Comment: 411.2 Performed By: #### L 300.3900 ####[facility] [address] [place], [address] PT Coag (PPP) [Time] 26.0 s High 11.7-14.9 [facility] Comment on above: Order Comment: 411.2 Performed By: #### L 300.3900 ####[facility] [address] [place], [address] Prothrombin timeOrdered By: Karon Corrales on 10-02-2024 PT Coag (PPP) [Time] 26.0 s High 11.7-14.9 [facility] International normalized rat io (INR) calculationOrdered By: Karon Corrales on 09-30-2024 INR Coag (Bld) [Relative time] 3.1 {INR} [facility] Prothrombin Time w/INRon INR Coag (PPP) [Relative time] 3.1 {INR} Normal [facility] Comment on above: Order Comment: 411.2 Performed By: #### L 300.3900 ####[facility] [address] [place], [address] PT Coag (PPP) [Time] 32.6 s High 11.7-14.9 [facility] Comment on above: Order Comment: 411.2 Performed By: #### L 300.3900 ####[facility] [address] [place], [place], [phone] Prothrombin timeOrdered By: Karon Corrales on 09-30-2024 PT Coag (PPP) [Time] 32.6 s High 11.7-14.9 [facility] International normalized rat io (INR) calculationOrdered By: Karon Corrales on 09-25-2024 INR Coag (Bld) [Relative time] 2.4 {INR} [facility] Prothrombin Time w/INRon INR Coag (PPP) [Relative time] 2.4 {INR} Normal [facility] Comment on above: Order Comment: 411.2 Performed By: #### L 300.3900 ####[facility] [address] [place], [address] Prothrombin timeOrdered By: Karon Corrales on 09-25-2024 PT Coag (PPP) [Time] 26.7 s High 11.7-14.9 [facility] Comment on above: Order Comment: 411.2 Performed By: #### L 300.3900 ####[facility] [address] [place], [place], [phone] International normalized rat io (INR) calculationOrdered By: Karon Corrales on 09-22-2024 INR Coag (Bld) [Relative time] 2.5 {INR} [facility] Prothrombin Time w/INRon INR Coag (PPP) [Relative time] 2.5 {INR} Normal [facility] Comment on above: Order Comment: 411.2 Performed By: #### L 300.3900 ####[facility] [address] [place], [place], [phone] Prothrombin timeOrdered By: Karon Corrales on 09-22-2024 PT Coag (PPP) [Time] 27.4 s High 11.7-14.9 [facility] Comment on above: Order Comment: 411.2 Performed By: #### L 300.3900 ####[facility] [address] [place], [address] International normalized rat io (INR) calculationOrdered By: Karon Corrales on 09-18-2024 INR Coag (Bld) [Relative time] 2.2 {INR} [facility] Prothrombin Time w/INRon INR Coag (PPP) [Relative time] 2.2 {INR} Normal [facility] Comment on above: Order Comment: 411.2 Performed By: #### L 300.3900 ####[facility] [address] [place], [place], [phone] PT Coag (PPP) [Time] 25.1 s High 11.7-14.9 [facility] Comment on above: Order Comment: 411.2 Performed By: #### L 300.3900 ####[facility] [address] [place], [place], [phone] Prothrombin timeOrdered By: Karon Corrales on 09-18-2024 PT Coag (PPP) [Time] 25.1 s High 11.7-14.9 [facility] International normalized rat io (INR) calculationOrdered By: Carlos Cavazos on 09-15-2024 INR Coag (Bld) [Relative time] 2.4 {INR} [facility] Prothrombin Time w/INRon INR Coag (PPP) [Relative time] 2.4 {INR} Normal [facility] Comment on above: Order Comment: 411-2 Performed By: #### L 300.3900 ####[facility] [address] [place], [place], [phone] Prothrombin timeOrdered By: Carlos Cavazos on 09-15-2024 PT Coag (PPP) [Time] 26.3 s High 11.7-14.9 [facility] Comment on above: Order Comment: 411-2 Performed By: #### L 300.3900 ####[facility] [address] [place], [place], [phone] International normalized rat io (INR) calculationOrdered By: Karon Corrales on 09-11-2024 INR Coag (Bld) [Relative time] 2.0 {INR} [facility] Prothrombin Time w/INRon INR Coag (PPP) [Relative time] 2.0 {INR} Normal [facility] Comment on above: Order Comment: 411.2 Performed By: #### L 300.3900 ####[facility] [address] [place], [place], [phone] PT Coag (PPP) [Time] 22.9 s High 11.7-14.9 [facility] Comment on above: Order Comment: 411.2 Performed By: #### L 300.3900 ####[facility] [address] [place], [place], [phone](885) Prothrombin timeOrdered By: Karon Corrales on 09-11-2024 PT Coag (PPP) [Time] 22.9 s High 11.7-14.9 [facility] International normalized rat io (INR) calculationOrdered By: Karon Corrales on 09-08-2024 INR Coag (Bld) [Relative time] 2.0 {INR} [facility] Prothrombin Time w/INRon INR Coag (PPP) [Relative time] 2.0 {INR} Normal [facility] Comment on above: Order Comment: 411.2 Performed By: #### L 300.3900 ####[facility] [address] [place], [place], [phone] PT Coag (PPP) [Time] 22.8 s High 11.7-14.9 [facility] Comment on above: Order Comment: 411.2 Performed By: #### L 300.3900 ####[facility] [address] [place], [place], [phone](053) Prothrombin timeOrdered By: Karon Corrales on 09-08-2024 PT Coag (PPP) [Time] 22.8 s High 11.7-14.9 [facility] International normalized rat io (INR) calculationOrdered By: Carlos Cavazos on 09-04-2024 INR Coag (Bld) [Relative time] 1.7 {INR} [facility] Prothrombin Time w/INRon INR Coag (PPP) [Relative time] 1.7 {INR} Normal [facility] Comment on above: Order Comment: 411-2 Performed By: #### L 300.3900 ####[facility] [address] [place], [address] PT Coag (PPP) [Time] 20.8 s High 11.7-14.9 [facility] Comment on above: Order Comment: 411-2 Performed By: #### L 300.3900 ####[facility] [address] [place], [address] Prothrombin timeOrdered By: Carlos Cavazos on 09-04-2024 PT Coag (PPP) [Time] 20.8 s High 11.7-14.9 [facility] International normalized rat io (INR) calculationOrdered By: Carlos Cavazos on 09-01-2024 INR Coag (Bld) [Relative time] 2.9 {INR} [facility] Prothrombin Time w/INRon INR Coag (PPP) [Relative time] 2.9 {INR} Normal [facility] Comment on above: Order Comment: 411-2 Performed By: #### L 300.3900 ####[facility] [address] [place], [address] PT Coag (PPP) [Time] 30.7 s High 11.7-14.9 [facility] Comment on above: Order Comment: 411-2 Performed By: #### L 300.3900 ####[facility] [address] [place], [address] Prothrombin timeOrdered By: Carlos Cavazos on 09-01-2024 PT Coag (PPP) [Time] 30.7 s High 11.7-14.[address] [facility] International normalized rat io (INR) calculationOrdered By: Carlos Cavazos on 08-28-2024 INR Coag (Bld) [Relative time] 2.4 {INR} [facility] Prothrombin Time w/INRon INR Coag (PPP) [Relative time] 2.4 {INR} Normal [facility] Comment on above: Order Comment: 411-2 Performed By: #### L 300.3900 ####[facility] [address] [place], [address] Prothrombin timeOrdered By: Carlos Cavazos on 08-28-2024 PT Coag (PPP) [Time] 26.7 s High 11.7-14.9 [facility] Comment on above: Order Comment: 411-2 Performed By: #### L 300.3900 ####[facility] [address] [place], [address] International normalized rat io (INR) calculationOrdered By: Karon Corrales on 08-25-2024 INR Coag (Bld) [Relative time] 1.8 {INR} [facility] Prothrombin Time w/INRon INR Coag (PPP) [Relative time] 1.8 {INR} Normal [facility] Comment on above: Order Comment: 411.2 Performed By: #### L 300.3900 ####[facility] [address] [place], [place], [phone] PT Coag (PPP) [Time] 21.6 s High 11.7-14.9 [facility] Comment on above: Order Comment: 411.2 Performed By: #### L 300.3900 ####[facility] [address] [place], [address] Prothrombin timeOrdered By: Karon Corrales on 08-25-2024 PT Coag (PPP) [Time] 21.6 s High 11.7-14.9 [facility] International normalized rat io (INR) calculationOrdered By: Karon Corrales on 08-21-2024 INR Coag (Bld) [Relative time] 1.7 {INR} [facility] PSA, total screeningOrdered By: Karon Corrales on 08-21-2024 Prostate Specific Antigen Screen 0.52 ng/mL 0.02-4.00 [facility] Comment on above: This test was perfor med using the [email or web address] tPSA method. Measured values of a patient sample can vary depending on the testing procedure used. PSA values determined on patient samples by different testing procedures cannot be used interchangeably. If there is a change in PSA assays while monitoring therapy, sequential testing should be performed to confirm baseline values. PSA,Total - Annual Screenon 08-21-2024 PSA,TOT SCREEN 0.52 ng/mL Normal 0.02-4.00 [facility] Comment on above: Order Comment: 411.2 [...] values. Performed By: #### L 501.9910, L300.3900 ####[facility] [address] [place], [address] Prothrombin Time w/INRon INR Coag (PPP) [Relative time] 1.7 {INR} Normal [facility] Comment on above: Order Comment: 411.2 Performed By: #### L 501.9910, L300.3900 ####[facility] [address] [place], [address] Prothrombin timeOrdered By: Karon Corrales on 08-21-2024 PT Coag (PPP) [Time] 20.1 s High 11.7-14.9 [facility] Comment on above: Order Comment: 411.2 Performed By: #### L 501.9910, L300.3900 ####[facility] [address] [place], [place], [phone] International normalized rat io (INR) calculationOrdered By: Karon Corrales on 08-18-2024 INR Coag (Bld) [Relative time] 3.0 {INR} [facility] Prothrombin Time w/INRon INR Coag (PPP) [Relative time] 3.0 {INR} Normal [facility] Comment on above: Order Comment: 411.2 Performed By: #### L 300.3900 ####[facility] [address] [place], [place], [phone](379) PT Coag (PPP) [Time] 31.4 s High 11.7-14.9 [facility] Comment on above: Order Comment: 411.2 Performed By: #### L 300.3900 ####[facility] [address] [place], [place], [phone](812) Prothrombin timeOrdered By: Karon Corrales on 08-18-2024 PT Coag (PPP) [Time] 31.4 s High 11.7-14.9 [facility] International normalized rat io (INR) calculationOrdered By: Karon Corrales on 08-14-2024 INR Coag (Bld) [Relative time] 2.4 {INR} [facility] Prothrombin Time w/INRon INR Coag (PPP) [Relative time] 2.4 {INR} Normal [facility] Comment on above: Order Comment: 411.2 Performed By: #### L 300.3900 ####[facility] [address] [place], [address] PT Coag (PPP) [Time] 26.6 s High 11.7-14.9 [facility] Comment on above: Order Comment: 411.2 Performed By: #### L 300.3900 ####[facility] [address] [place], [place], [phone](240) Prothrombin timeOrdered By: Karon Corrales on 08-14-2024 PT Coag (PPP) [Time] 26.6 s High 11.7-14.9 [facility] International normalized rat io (INR) calculationOrdered By: Karon Corrales on 08-11-2024 INR Coag (Bld) [Relative time] 3.1 {INR} [facility] Prothrombin Time w/INRon INR Coag (PPP) [Relative time] 3.1 {INR} Normal [facility] Comment on above: Order Comment: 411.2 Performed By: #### L 300.3900 ####[facility] [address] [place], [place], [phone](731) PT Coag (PPP) [Time] 32.4 s High 11.7-14.9 [facility] Comment on above: Order Comment: 411.2 Performed By: #### L 300.3900 ####[facility] [address] [place], [place], [phone] Prothrombin timeOrdered By: Karon Corrales on 08-11-2024 PT Coag (PPP) [Time] 32.4 s High 11.7-14.9 [facility] International normalized rat io (INR) calculationOrdered By: Carlos Cavazos on 08-07-2024 INR Coag (Bld) [Relative time] 2.8 {INR} [facility] Prothrombin Time w/INRon INR Coag (PPP) [Relative time] 2.8 {INR} Normal [facility] Comment on above: Order Comment: 411-2 Performed By: #### L 300.3900 ####[facility] [address] [place], [place], [phone] PT Coag (PPP) [Time] 30.3 s High 11.7-14.9 [facility] Comment on above: Order Comment: 411-2 Performed By: #### L 300.3900 ####[facility] [address] [place], [address] Prothrombin timeOrdered By: Carlos Cavazos on 08-07-2024 PT Coag (PPP) [Time] 30.3 s High 11.7-14.9 [facility] International normalized rat io (INR) calculationOrdered By: Carlos Cavazos on 08-04-2024 INR Coag (Bld) [Relative time] 1.9 {INR} [facility] Prothrombin Time w/INRon INR Coag (PPP) [Relative time] 1.9 {INR} Normal [facility] Comment on above: Order Comment: 411-2 Performed By: #### L 300.3900 ####[facility] [address] [place], [place], [phone] PT Coag (PPP) [Time] 22.1 s High 11.7-14.9 [facility] Comment on above: Order Comment: 411-2 Performed By: #### L 300.3900 ####[facility] [address] [place], [place], [address] Prothrombin timeOrdered By: Carlos Cavazos on 08-04-2024 PT Coag (PPP) [Time] 22.1 s High 11.7-14.9 [facility] International normalized rat io (INR) calculationOrdered By: Karon Corrales on 07-31-2024 INR Coag (Bld) [Relative time] 3.2 {INR} [facility] Prothrombin Time w/INRon INR Coag (PPP) [Relative time] 3.2 {INR} Normal [facility] Comment on above: Order Comment: 411.2 Performed By: #### L 300.3900 ####[facility] [address] [place], [place], [phone] PT Coag (PPP) [Time] 33.5 s High 11.7-14.9 [facility] Comment on above: Order Comment: 411.2 Performed By: #### L 300.3900 ####[facility] [address] [place], [place], [phone] Prothrombin timeOrdered By: Karon Corrales on 07-31-2024 PT Coag (PPP) [Time] 33.5 s High 11.7-14.9 [facility] International normalized rat io (INR) calculationOrdered By: Karon Corrales on 07-28-2024 INR Coag (Bld) [Relative time] 2.7 {INR} [facility] Prothrombin Time w/INRon INR Coag (PPP) [Relative time] 2.7 {INR} Normal [facility] Comment on above: Order Comment: 411.2 Performed By: #### L 300.3900 ####[facility] [address] [place], [place], [phone] PT Coag (PPP) [Time] 29.6 s High 11.7-14.9 [facility] Comment on above: Order Comment: 411.2 Performed By: #### L 300.3900 ####[facility] [address] [place], [place], [phone] Prothrombin timeOrdered By: Karon Corrales on 07-28-2024 PT Coag (PPP) [Time] 29.6 s High 11.7-14.9 [facility] International normalized rat io (INR) calculationOrdered By: Carlos aCvazos on 07-25-2024 INR Coag (Bld) [Relative time] 3.0 {INR} [facility] Prothrombin Time w/INRon INR Coag (PPP) [Relative time] 3.0 {INR} Normal [facility] Comment on above: Order Comment: 411-2 Performed By: #### L 300.3900 ####[facility] [address] [place], [address] Prothrombin timeOrdered By: Carlos Cavazos on 07-25-2024 PT Coag (PPP) [Time] 32.1 s High 11.7-14.9 [facility] Comment on above: Order Comment: 411-2 Performed By: #### L 300.3900 ####[facility] [address] [place], [place], [phone] International normalized rat io (INR) calculationOrdered By: Karon Corrales on 07-24-2024 INR Coag (Bld) [Relative time] 3.4 {INR} [facility] Prothrombin Time w/INRon INR Coag (PPP) [Relative time] 3.4 {INR} Normal [facility] Comment on above: Order Comment: 411.2 Performed By: #### L 300.3900 ####[facility] [address] [place], [place], [phone] Prothrombin timeOrdered By: Karon Corrales on 07-24-2024 PT Coag (PPP) [Time] 35.4 s High 11.7-14.9 [facility] Comment on above: Order Comment: 411.2 Performed By: #### L 300.3900 ####[facility] [address] [place], [place], [phone] International normalized rat io (INR) calculationOrdered By: Karon Corrales on 07-21-2024 INR Coag (Bld) [Relative time] 1.6 {INR} [facility] Prothrombin Time w/INRon INR Coag (PPP) [Relative time] 1.6 {INR} Normal [facility] Comment on above: Order Comment: 411.2 Performed By: #### L 300.3900 ####[facility] [address] [place], [place], [phone] PT Coag (PPP) [Time] 19.6 s High 11.7-14.9 [facility] Comment on above: Order Comment: 411.2 Performed By: #### L 300.3900 ####[facility] [address] [place], [place], [phone](734) Prothrombin timeOrdered By: Karon Corrales on 07-21-2024 PT Coag (PPP) [Time] 19.6 s High 11.7-14.9 [facility] International normalized rat io (INR) calculationOrdered By: Karon Corrales on 07-17-2024 INR Coag (Bld) [Relative time] 2.9 {INR} [facility] Prothrombin Time w/INRon INR Coag (PPP) [Relative time] 2.9 {INR} Normal [facility] Comment on above: Order Comment: 411.2 Performed By: #### L 300.3900 ####[facility] [address] [place], [place], [phone](414 PT Coag (PPP) [Time] 31.1 s High 11.7-14.9 [facility] Comment on above: Order Comment: 411.2 Performed By: #### L 300.3900 ####[facility] [address] [place], [address] Prothrombin timeOrdered By: Karon Corrales on 07-17-2024 PT Coag (PPP) [Time] 31.1 s High 11.7-14.9 [facility] International normalized rat io (INR) calculationOrdered By: Carlos Cavazos on 07-14-2024 INR Coag (Bld) [Relative time] 2.5 {INR} [facility] Prothrombin Time w/INRon INR Coag (PPP) [Relative time] 2.5 {INR} Normal [facility] Comment on above: Order Comment: 411-2 Performed By: #### L 300.3900 ####[facility] [address] [place], [address] PT Coag (PPP) [Time] 27.5 s High 11.7-14.9 [facility] Comment on above: Order Comment: 411-2 Performed By: #### L 300.3900 ####[facility] [address] [place], [address] Prothrombin timeOrdered By: Carlos Cavazos on 07-14-2024 PT Coag (PPP) [Time] 27.5 s High 11.7-14.9 [facility] International normalized rat io (INR) calculationOrdered By: Carlos Cavazos on 07-11-2024 INR Coag (Bld) [Relative time] 2.5 {INR} [facility] Prothrombin Time w/INRon INR Coag (PPP) [Relative time] 2.5 {INR} Normal [facility] Comment on above: Performed By: #### L 300.3900 ####[facility] [address] [place], [address] PT Coag (PPP) [Time] 27.7 s High 11.7-14.9 [facility] Comment on above: Performed By: #### L 300.3900 ####[facility] [address] [place], [place], [phone] Prothrombin timeOrdered By: Carlos Cavazos on 07-11-2024 PT Coag (PPP) [Time] 27.7 s High 11.7-14.9 [facility] Prothrombin Time w/INRon INR Normal [facility] Comment on above: Order Comment: 411.2 Result Comment: QNS TUBE NOT FILLED Performed By: #### L 300.3900 ####[facility] [address] [place], [place], [phone] PROTIME Normal 11.7-14.9 [facility] Comment on above: Order Comment: 411.2 Result Comment: QNS TUBE NOT FILLED Performed By: #### L 300.3900 ####[facility] [address] [place], [place], [phone] International normalized rat io (INR) calculationOrdered By: Kvng Crisostomo on 07-07-2024 INR Coag (Bld) [Relative time] 2.5 {INR} [facility] Prothrombin Time w/INRon INR Coag (PPP) [Relative time] 2.5 {INR} Normal [facility] Comment on above: Order Comment: 411.2 Performed By: #### L 300.3900 ####[facility] [address] [place], [address] PT Coag (PPP) [Time] 27.2 s High 11.7-14.9 [facility] Comment on above: Order Comment: 411.2 Performed By: #### L 300.3900 ####[facility] [address] [place], [address] Prothrombin timeOrdered By: Kvng Crisostomo on 07-07-2024 PT Coag (PPP) [Time] 27.2 s High 11.7-14.9 [facility] International normalized rat io (INR) calculationOrdered By: Kvng Crisostomo on 07-03-2024 INR Coag (Bld) [Relative time] 2.5 {INR} [facility] Prothrombin Time w/INRon INR Coag (PPP) [Relative time] 2.5 {INR} Normal [facility] Comment on above: Order Comment: 411.2 Performed By: #### L 300.3900 ####[facility] [address] [place], [address] PT Coag (PPP) [Time] 27.2 s High 11.7-14.9 [facility] Comment on above: Order Comment: 411.2 Performed By: #### L 300.3900 ####[facility] [address] [place], [address] Prothrombin timeOrdered By: Kvng Crisostomo on 07-03-2024 PT Coag (PPP) [Time] 27.2 s High 11.7-14.9 [facility] International normalized rat io (INR) calculationOrdered By: Kvng Crisostomo on 06-30-2024 INR Coag (Bld) [Relative time] 2.4 {INR} [facility] Prothrombin Time w/INRon INR Coag (PPP) [Relative time] 2.4 {INR} Normal [facility] Comment on above: Order Comment: 411.2 Performed By: #### L 300.3900 ####[facility] [address] [place], [address] PT Coag (PPP) [Time] 26.8 s High 11.7-14.9 [facility] Comment on above: Order Comment: 411.2 Performed By: #### L 300.3900 ####[facility] [address] [place], [address] Prothrombin timeOrdered By: Kvng Crisostomo on 06-30-2024 PT Coag (PPP) [Time] 26.8 s High 11.7-14.9 [facility] International normalized rat io (INR) calculationOrdered By: Kvng Crisostomo on 06-26-2024 INR Coag (Bld) [Relative time] 2.5 {INR} [facility] Prothrombin Time w/INRon INR Coag (PPP) [Relative time] 2.5 {INR} Normal [facility] Comment on above: Order Comment: 411.2 Performed By: #### L 300.3900 ####[facility] [address] [place], [address] PT Coag (PPP) [Time] 27.5 s High 11.7-14.9 [facility] Comment on above: Order Comment: 411.2 Performed By: #### L 300.3900 ####[facility] [address] [place], [place], [phone](329) Prothrombin timeOrdered By: Kvng Crisostomo on 06-26-2024 PT Coag (PPP) [Time] 27.5 s High 11.7-14.9 [facility] International normalized rat io (INR) calculationOrdered By: Carlos Cavazos on 06-23-2024 INR Coag (Bld) [Relative time] 2.8 {INR} [facility] Prothrombin Time w/INRon INR Coag (PPP) [Relative time] 2.8 {INR} Normal [facility] Comment on above: Order Comment: 411-2 Performed By: #### L 300.3900 ####[facility] [address] [place], [address] PT Coag (PPP) [Time] 29.7 s High 11.7-14.9 [facility] Comment on above: Order Comment: 411-2 Performed By: #### L 300.3900 ####[facility] [address] [place], [address] Prothrombin timeOrdered By: Carlos Cavazos on 06-23-2024 PT Coag (PPP) [Time] 29.7 s High 11.7-14.9 [facility] International normalized rat io (INR) calculationOrdered By: Kvng Crisostomo on 06-19-2024 INR Coag (Bld) [Relative time] 2.6 {INR} [facility] Prothrombin Time w/INRon INR Coag (PPP) [Relative time] 2.6 {INR} Normal [facility] Comment on above: Order Comment: 411.2 Performed By: #### L 300.3900 ####[facility] [address] [place], [address] PT Coag (PPP) [Time] 28.6 s High 11.7-14.9 [facility] Comment on above: Order Comment: 411.2 Performed By: #### L 300.3900 ####[facility] [address] [place], [address] Prothrombin timeOrdered By: Kvng Crisostomo on 06-19-2024 PT Coag (PPP) [Time] 28.6 s High 11.7-14.9 [facility] International normalized rat io (INR) calculationOrdered By: Kvng Crisostomo on 06-16-2024 INR Coag (Bld) [Relative time] 2.5 {INR} [facility] Prothrombin Time w/INRon INR Coag (PPP) [Relative time] 2.5 {INR} Normal [facility] Comment on above: Order Comment: 411.2 Performed By: #### L 300.3900 ####[facility] [address] [place], [address] PT Coag (PPP) [Time] 27.3 s High 11.7-14.9 [facility] Comment on above: Order Comment: 411.2 Performed By: #### L 300.3900 ####[facility] [address] [place], [address] Prothrombin timeOrdered By: Kvng Crisostomo on 06-16-2024 PT Coag (PPP) [Time] 27.3 s High 11.7-14.9 [facility] International normalized rat io (INR) calculationOrdered By: vKng Crisostomo on 06-12-2024 INR Coag (Bld) [Relative time] 2.1 {INR} [facility] Prothrombin Time w/INRon INR Coag (PPP) [Relative time] 2.1 {INR} Normal [facility] Comment on above: Order Comment: 411.2 Performed By: #### L 300.3900 ####[facility] [address] [place], [address] PT Coag (PPP) [Time] 24.0 s High 11.7-14.9 [facility] Comment on above: Order Comment: 411.2 Performed By: #### L 300.3900 ####[facility] [address] [place], [address] Prothrombin timeOrdered By: Kvng Crisostomo on 06-12-2024 PT Coag (PPP) [Time] 24.0 s High 11.7-14.9 [facility] International normalized rat io (INR) calculationOrdered By: Carlos Cavazos on 06-09-2024 INR Coag (Bld) [Relative time] 1.5 {INR} [facility] Prothrombin Time w/INRon INR Coag (PPP) [Relative time] 1.5 {INR} Normal [facility] Comment on above: Order Comment: 411-2 Performed By: #### L 300.3900 ####[facility] [address] [place], [address] PT Coag (PPP) [Time] 18.0 s High 11.7-14.9 [facility] Comment on above: Order Comment: 411-2 Performed By: #### L 300.3900 ####[facility] [address] [place], [address] Prothrombin timeOrdered By: Carlos Cavazos on 06-09-2024 PT Coag (PPP) [Time] 18.0 s High 11.7-14.9 [facility] International normalized rat io (INR) calculationOrdered By: Kvng Crisostomo on 06-05-2024 INR Coag (Bld) [Relative time] 2.8 {INR} [facility] Prothrombin Time w/INRon INR Coag (PPP) [Relative time] 2.8 {INR} Normal [facility] Comment on above: Order Comment: 411.2 Performed By: #### L 300.3900 ####[facility] [address] [place], [address] PT Coag (PPP) [Time] 30.3 s High 11.7-14.9 [facility] Comment on above: Order Comment: 411.2 Performed By: #### L 300.3900 ####[facility] [address] [place], [address] Prothrombin timeOrdered By: Kvng Crisostomo on 06-05-2024 PT Coag (PPP) [Time] 30.3 s High 11.7-14.9 [facility] International normalized rat io (INR) calculationOrdered By: Kvng Crisostomo on 06-02-2024 INR Coag (Bld) [Relative time] 2.6 {INR} [facility] Prothrombin Time w/INRon INR Coag (PPP) [Relative time] 2.6 {INR} Normal [facility] Comment on above: Order Comment: 411.2 Performed By: #### L 300.3900 ####[facility] [address] [place], [address] PT Coag (PPP) [Time] 28.6 s High 11.7-14.9 [facility] Comment on above: Order Comment: 411.2 Performed By: #### L 300.3900 ####[facility] [address] [facility] [address] Prothrombin timeOrdered By: Kvng Crisostomo on 06-02-2024 PT Coag (PPP) [Time] 28.6 s High 11.7-14.9 [facility] International normalized rat io (INR) calculationOrdered By: Kvng Crisostomo on 05-29-2024 INR Coag (Bld) [Relative time] 2.5 {INR} [facility] Prothrombin Time w/INRon INR Coag (PPP) [Relative time] 2.5 {INR} Normal [facility] Comment on above: Order Comment: 411.2 Performed By: #### L 300.3900 ####[facility] [address] [place], [address] PT Coag (PPP) [Time] 27.7 s High 11.7-14.9 [facility] Comment on above: Order Comment: 411.2 Performed By: #### L 300.3900 ####[facility] [address] [place], [address] Prothrombin timeOrdered By: Kvng Crisostomo on 05-29-2024 PT Coag (PPP) [Time] 27.7 s High 11.7-14.9 [facility] International normalized rat io (INR) calculationOrdered By: Carlos Cavazos on 05-26-2024 INR Coag (Bld) [Relative time] 2.2 {INR} [facility] Prothrombin Time w/INRon INR Coag (PPP) [Relative time] 2.2 {INR} Normal [facility] Comment on above: Order Comment: 411-2 Performed By: #### L 300.3900 ####[facility] [address] [place], [place], [phone] PT Coag (PPP) [Time] 24.5 s High 11.7-14.9 [facility] Comment on above: Order Comment: 411-2 Performed By: #### L 300.3900 ####[facility] [address] [place], [address] Prothrombin timeOrdered By: Carlos Cavazos on 05-26-2024 PT Coag (PPP) [Time] 24.5 s High 11.7-14.9 [facility] International normalized rat io (INR) calculationOrdered By: Kvng Crisostomo on 05-22-2024 INR Coag (Bld) [Relative time] 2.8 {INR} [facility] Prothrombin Time w/INRon INR Coag (PPP) [Relative time] 2.8 {INR} Normal [facility] Comment on above: Order Comment: 411.2 Performed By: #### L 300.3900 ####[facility] [address] [place], [place], [phone] PT Coag (PPP) [Time] 30.3 s High 11.7-14.9 [facility] Comment on above: Order Comment: 411.2 Performed By: #### L 300.3900 ####[facility] [address] [place], [address] Prothrombin timeOrdered By: Kvng Crisostomo on 05-22-2024 PT Coag (PPP) [Time] 30.3 s High 11.7-14.9 [facility] International normalized rat io (INR) calculationOrdered By: Kvng Crisostomo on 05-20-2024 INR Coag (Bld) [Relative time] 4.0 {INR} High [facility] Comment on above: CRITICAL VALUE CASEY D TO [id number]/14/25 08 Diana Srinivasan.RESULTS READ BACK BY SAME. Prothrombin Time w/INRon INR Coag (PPP) [Relative time] 4.0 {INR} Invalid Interpretation Code [facility] Comment on above: Order Comment: 411.2 Result Comment: CRIT ICAL VALUE CALLED TO [id number]/14/25 [facility] Diana Mattson.RESULTS READ BACK BY SAME. Performed By: #### L 300.3900 ####[facility] [address] [place], [place], [phone](930) PT Coag (PPP) [Time] 39.9 s High 11.7-14.9 [facility] Comment on above: Order Comment: 411.2 Performed By: #### L 300.3900 ####[facility] [address] [place], [place], [phone](871) Prothrombin timeOrdered By: Kvng Crisostomo on 05-20-2024 PT Coag (PPP) [Time] 39.9 s High 11.7-14.9 [facility] International normalized rat io (INR) calculationOrdered By: Kvng Crisostomo on 05-19-2024 INR Coag (Bld) [Relative time] 3.4 {INR} [facility] Prothrombin Time w/INRon INR Coag (PPP) [Relative time] 3.4 {INR} Normal [facility] Comment on above: Order Comment: 411.2 Performed By: #### L 300.3900 ####[facility] [address] [place], [place], [phone](225) PT Coag (PPP) [Time] 35.4 s High 11.7-14.9 [facility] Comment on above: Order Comment: 411.2 Performed By: #### L 300.3900 ####[facility] [address] [place], [place], [phone](664) Prothrombin timeOrdered By: Kvng Crisostomo on 05-19-2024 PT Coag (PPP) [Time] 35.4 s High 11.7-14.9 [facility] International normalized rat io (INR) calculationOrdered By: Kvng Crisostomo on 05-15-2024 INR Coag (Bld) [Relative time] 2.6 {INR} [facility] Prothrombin Time w/INRon INR Coag (PPP) [Relative time] 2.6 {INR} Normal [facility] Comment on above: Order Comment: 411.2 Performed By: #### L 300.3900 ####[facility] [address] [place], [place], [phone] PT Coag (PPP) [Time] 28.7 s High 11.7-14.9 [facility] Comment on above: Order Comment: 411.2 Performed By: #### L 300.3900 ####[facility] [address] [place], [address] Prothrombin timeOrdered By: Kvng Crisostomo on 05-15-2024 PT Coag (PPP) [Time] 28.7 s High 11.7-14.9 [facility] International normalized rat io (INR) calculationOrdered By: Carlos Cavazos on 05-12-2024 INR Coag (Bld) [Relative time] 2.1 {INR} [facility] Prothrombin Time w/INRon INR Coag (PPP) [Relative time] 2.1 {INR} Normal [facility] Comment on above: Order Comment: 411-2 Performed By: #### L 300.3900 ####[facility] [address] [place], [address] PT Coag (PPP) [Time] 24.1 s High 11.7-14.9 [facility] Comment on above: Order Comment: 411-2 Performed By: #### L 300.3900 ####[facility] [address] [place], [place], [phone] Prothrombin timeOrdered By: Carlos Cavazos on 05-12-2024 PT Coag (PPP) [Time] 24.1 s High 11.7-14.9 [facility] International normalized rat io (INR) calculationOrdered By: Kvng Crisostomo on 05-09-2024 INR Coag (Bld) [Relative time] 3.4 {INR} [facility] Prothrombin Time w/INRon INR Coag (PPP) [Relative time] 3.4 {INR} Normal [facility] Comment on above: Order Comment: 411.2 Performed By: #### L 300.3900 ####[facility] [address] [place], [place], [phone] PT Coag (PPP) [Time] 35.4 s High 11.7-14.9 [facility] Comment on above: Order Comment: 411.2 Performed By: #### L 300.3900 ####[facility] [address] [place], [place], [phone] Prothrombin timeOrdered By: Kvng Crisostomo on 05-09-2024 PT Coag (PPP) [Time] 35.4 s High 11.7-14.9 [facility] International normalized rat io (INR) calculationOrdered By: Kvng Crisostomo on 05-08-2024 INR Coag (Bld) [Relative time] 4.1 {INR} High [facility] Comment on above: CRITICAL VALUE CASEY D TO [facility]05/08/24 0950 Karen Jamison.RESULTS READ BACK BY SAME. Prothrombin Time w/INRon INR Coag (PPP) [Relative time] 4.1 {INR} Invalid Interpretation Code [facility] Comment on above: Order Comment: 411.2 Result Comment: CRIT ICAL VALUE CALLED TO [facility]05/08/24 0950 Karen Jamison.RESULTS READ BACK BY SAME. Performed By: #### L 300.3900 ####[facility] [address] [place], [address] PT Coag (PPP) [Time] 40.8 s High 11.7-14.9 [facility] Comment on above: Order Comment: 411.2 Performed By: #### L 300.3900 ####[facility] [address] [place], [address] Prothrombin timeOrdered By: Babbaljeet Andressa on 05-08-2024 PT Coag (PPP) [Time] 40.8 s High 11.7-14.9 [facility] International normalized rat io (INR) calculationOrdered By: Babbaljeet Crisostomo on 05-05-2024 INR Coag (Bld) [Relative time] 3.2 {INR} [facility] Prothrombin Time w/INRon INR Coag (PPP) [Relative time] 3.2 {INR} Normal [facility] Comment on above: Order Comment: 411.2 Performed By: #### L 300.3900 ####[facility] [address] [place], [address] PT Coag (PPP) [Time] 32.5 s High 11.7-14.9 [facility] Comment on above: Order Comment: 411.2 Performed By: #### L 300.3900 ####[facility] [address] [place], [address] Prothrombin timeOrdered By: Babbaljeet Crisostomo on 05-05-2024 PT Coag (PPP) [Time] 32.5 s High 11.7-14.9 [facility] International normalized rat io (INR) calculationOrdered By: Babbaljeet Crisostomo on 05-01-2024 INR Coag (Bld) [Relative time] 3.1 {INR} [facility] Prothrombin Time w/INRon INR Coag (PPP) [Relative time] 3.1 {INR} Normal [facility] Comment on above: Order Comment: 411.2 Performed By: #### L 300.3900 ####[facility] [address] [place], [address] PT Coag (PPP) [Time] 31.9 s High 11.7-14.9 [facility] Comment on above: Order Comment: 411.2 Performed By: #### L 300.3900 ####[facility] [address] [place], [address] Prothrombin timeOrdered By: Kvng Crisostomo on 05-01-2024 PT Coag (PPP) [Time] 31.9 s High 11.7-14.9 [facility] International normalized rat io (INR) calculationOrdered By: Carlos Cavazos on 04-28-2024 INR Coag (Bld) [Relative time] 2.6 {INR} [facility] Prothrombin Time w/INRon INR Coag (PPP) [Relative time] 2.6 {INR} Normal [facility] Comment on above: Order Comment: 411-2 Performed By: #### L 300.3900 ####[facility] [address] [place], [address] PT Coag (PPP) [Time] 27.3 s High 11.7-14.9 [facility] Comment on above: Order Comment: 411-2 Performed By: #### L 300.3900 ####[facility] [address] [place], [address] Prothrombin timeOrdered By: Carlos Cavazos on 04-28-2024 PT Coag (PPP) [Time] 27.3 s High 11.7-14.9 [facility] International normalized rat io (INR) calculationOrdered By: Kvng Crisostomo on 04-24-2024 INR Coag (Bld) [Relative time] 3.6 {INR} [facility] Prothrombin Time w/INRon INR Coag (PPP) [Relative time] 3.6 {INR} Normal [facility] Comment on above: Order Comment: 411.2 Performed By: #### L 300.3900 ####[facility] [address] [place], [address] PT Coag (PPP) [Time] 35.6 s High 11.7-14.9 [facility] Comment on above: Order Comment: 411.2 Performed By: #### L 300.3900 ####[facility] [address] [place], [address] Prothrombin timeOrdered By: Kvng Crisostomo on 04-24-2024 PT Coag (PPP) [Time] 35.6 s High 11.7-14.9 [facility] International normalized rat io (INR) calculationOrdered By: Carlos Cavazos on 04-21-2024 INR Coag (Bld) [Relative time] 2.8 {INR} [facility] Prothrombin Time w/INRon INR Coag (PPP) [Relative time] 2.8 {INR} Normal [facility] Comment on above: Order Comment: 411-2 Performed By: #### L 300.3900 ####[facility] [address] [place], [address] PT Coag (PPP) [Time] 29.4 s High 11.7-14.9 [facility] Comment on above: Order Comment: 411-2 Performed By: #### L 300.3900 ####[facility] [address] [place], [address] Prothrombin timeOrdered By: Carlos Cavazos on 04-21-2024 PT Coag (PPP) [Time] 29.4 s High 11.7-14.9 [facility] International normalized rat io (INR) calculationOrdered By: Kvng Crisostomo on 04-17-2024 INR Coag (Bld) [Relative time] 3.1 {INR} [facility] Prothrombin Time w/INRon INR Coag (PPP) [Relative time] 3.1 {INR} Normal [facility] Comment on above: Order Comment: 411.2 Performed By: #### L 300.3900 ####[facility] [address] [place], [place], [phone](180) Prothrombin timeOrdered By: Kvng Crisostomo on 04-17-2024 PT Coag (PPP) [Time] 31.3 s High 11.7-14.9 [facility] Comment on above: Order Comment: 411.2 Performed By: #### L 300.3900 ####[facility] [address] [place], [place], [phone](223) International normalized rat io (INR) calculationOrdered By: Kvng Crisostomo on 04-14-2024 INR Coag (Bld) [Relative time] 3.3 {INR} [facility] Prothrombin Time w/INRon INR Coag (PPP) [Relative time] 3.3 {INR} Normal [facility] Comment on above: Order Comment: 411.2 Performed By: #### L 300.3900 ####[facility] [address] [place], [place], [phone](659) PT Coag (PPP) [Time] 33.2 s High 11.7-14.9 [facility] Comment on above: Order Comment: 411.2 Performed By: #### L 300.3900 ####[facility] [address] [place], [place], [phone](888) Prothrombin timeOrdered By: Kvng Crisostomo on 04-14-2024 PT Coag (PPP) [Time] 33.2 s High 11.7-14.9 [facility] International normalized rat io (INR) calculationOrdered By: Kvng Crisostomo on 04-10-2024 INR Coag (Bld) [Relative time] 2.8 {INR} [facility] Prothrombin Time w/INRon INR Coag (PPP) [Relative time] 2.8 {INR} Normal [facility] Comment on above: Order Comment: 411.2 Performed By: #### L 300.3900 ####[facility] [address] [place], [address] PT Coag (PPP) [Time] 29.2 s High 11.7-14.9 [facility] Comment on above: Order Comment: 411.2 Performed By: #### L 300.3900 ####[facility] [address] [place], [address] Prothrombin timeOrdered By: Kvng Crisostomo on 04-10-2024 PT Coag (PPP) [Time] 29.2 s High 11.7-14.9 [facility] International normalized rat io (INR) calculationOrdered By: Carlos Cavazos on 04-07-2024 INR Coag (Bld) [Relative time] 2.7 {INR} [facility] Prothrombin Time w/INRon INR Coag (PPP) [Relative time] 2.7 {INR} Normal [facility] Comment on above: Order Comment: 411-2 Performed By: #### L 300.3900 ####[facility] [address] [place], [address] PT Coag (PPP) [Time] 28.1 s High 11.7-14.9 [facility] Comment on above: Order Comment: 411-2 Performed By: #### L 300.3900 ####[facility] [address] [place], [address] Prothrombin timeOrdered By: Carlos Cavazos on 04-07-2024 PT Coag (PPP) [Time] 28.1 s High 11.7-14.9 [facility] International normalized rat io (INR) calculationOrdered By: Kvng Crisostomo on 04-04-2024 INR Coag (Bld) [Relative time] 2.8 {INR} [facility] Prothrombin Time w/INRon INR Coag (PPP) [Relative time] 2.8 {INR} Normal [facility] Comment on above: Order Comment: 411.2 Performed By: #### L 300.3900 ####[facility] [address] [place], [address] PT Coag (PPP) [Time] 28.9 s High 11.7-14.9 [facility] Comment on above: Order Comment: 411.2 Performed By: #### L 300.3900 ####[facility] [address] [place], [address] Prothrombin timeOrdered By: Kvng Crisostomo on 04-04-2024 PT Coag (PPP) [Time] 28.9 s High 11.7-14.9 [facility] International normalized rat io (INR) calculationOrdered By: Carlos Cavazos on 03-31-2024 INR Coag (Bld) [Relative time] 2.6 {INR} [facility] Prothrombin Time w/INRon INR Coag (PPP) [Relative time] 2.6 {INR} Normal [facility] Comment on above: Order Comment: 411-2 Performed By: #### L 300.3900 ####[facility] [address] [place], [address] PT Coag (PPP) [Time] 27.3 s High 11.7-14.9 [facility] Comment on above: Order Comment: 411-2 Performed By: #### L 300.3900 ####[facility] [facility] [address] [place], [address] Prothrombin timeOrdered By: Carlos Cavazos on 03-31-2024 PT Coag (PPP) [Time] 27.3 s High 11.7-14.9 [facility] normalized rat io (INR) calculationOrdered By: [place] [facility] on 03-27-2024 INR Coag (Bld) [Relative time] 2.2 {INR} [facility] Prothrombin Time w/INRon INR Coag (PPP) [Relative time] 2.2 {INR} Normal [facility] Comment on above: Order Comment: 411.2 Performed By: #### L 300.3900 ####[facility] [address] [place], [address] PT Coag (PPP) [Time] 24.3 s High 11.7-14.9 [facility] Comment on above: Order Comment: 411.2 Performed By: #### L 300.3900 ####[facility] [address] [place], [address] Prothrombin timeOrdered By: [place] [facility] on 03-27-2024 PT Coag (PPP) [Time] 24.3 s High 11.7-14.9 [facility] normalized rat io (INR) calculationOrdered By: Kvng Crisostomo on 03-24-2024 INR Coag (Bld) [Relative time] 1.8 {INR} [facility] Prothrombin Time w/INRon INR Coag (PPP) [Relative time] 1.8 {INR} Normal [facility] Comment on above: Order Comment: 411.2 Performed By: #### L 300.3900 ####[facility] [address] [place], [address] PT Coag (PPP) [Time] 20.7 s High 11.7-14.9 [facility] Comment on above: Order Comment: 411.2 Performed By: #### L 300.3900 ####[facility] [address] [place], [address] Prothrombin timeOrdered By: Kvng Crisostomo on 03-24-2024 PT Coag (PPP) [Time] 20.7 s High 11.7-14.9 [facility] normalized rat io (INR) calculationOrdered By: [place] [facility] on 03-20-2024 INR Coag (Bld) [Relative time] 1.8 {INR} [facility] Prothrombin Time w/INRon INR Coag (PPP) [Relative time] 1.8 {INR} Normal [facility] Comment on above: Order Comment: 411.2 Performed By: #### L 300.3900 ####[facility] [address] [place], [address] PT Coag (PPP) [Time] 20.9 s High 11.7-14.9 [facility] Comment on above: Order Comment: 411.2 Performed By: #### L [id number] ####[facility] [address] [place], [address] Prothrombin timeOrdered By: [place] [facility] on 03-20-2024 PT Coag (PPP) [Time] 20.9 s High 11.7-14.9 [facility] normalized rat io (INR) calculationOrdered By: Kvng Crisostomo on 03-19-2024 INR Coag (Bld) [Relative time] 2.4 {INR} [facility] Prothrombin Time w/INRon INR Coag (PPP) [Relative time] 2.4 {INR} Normal [facility] Comment on above: Order Comment: 411.2 Performed By: #### L [id number] ####[facility] [address] [place], [address] PT Coag (PPP) [Time] 26.4 s High 11.7-14.9 [facility] Comment on above: Order Comment: 411.2 Performed By: #### L [id number] ####[facility] [address] [place], [address] Prothrombin timeOrdered By: Kvng Crisostomo on 03-19-2024 PT Coag (PPP) [Time] 26.4 s High 11.7-14.9 [facility] normalized rat io (INR) calculationOrdered By: [place] [facility] on 03-18-2024 INR Coag (Bld) [Relative time] 3.2 {INR} [facility] Prothrombin timeOrdered By: [place] [facility] on 03-18-2024 PT Coag (PPP) [Time] 32.3 s High 11.7-14.9 [facility] normalized rat io (INR) calculationOrdered By: [place] [facility] on 03-17-2024 INR Coag (Bld) [Relative time] 3.6 {INR} [facility] Prothrombin timeOrdered By: [place] [facility] on 03-17-2024 PT Coag (PPP) [Time] 35.7 s High 11.7-14.9 [facility] normalized rat io (INR) calculationOrdered By: Carlos Cavazos on 03-14-2024 INR Coag (Bld) [Relative time] 3.5 {INR} [facility] Prothrombin timeOrdered By: Carlos Cavazos on 03-14-2024 PT Coag (PPP) [Time] 35.0 s High 11.7-14.9 [facility] normalized rat io (INR) calculationOrdered By: [place] [facility] on 03-13-2024 INR Coag (Bld) [Relative time] 3.2 {INR} [facility] Prothrombin timeOrdered By: [place] [facility] on 03-13-2024 PT Coag (PPP) [Time] 32.2 s High 11.7-14.9 [facility] Office Visiton 09-13-2023 Follow-up visit [id number] GurpreetTamie 1950 M [address] Provider Department Center 09/13/2023 [id number] BUCK [facility] None Family History Problem Relation Age of Onset Heart disease Father Cancer Mother Family Status - Relation Status Age at Father Mother Level of Service:38413 [place] OFFICE/OUTPATIENT ESTABLISHED MOD MDM 30 MIN Reason for Visit and Comments: left flank pain [Other] - 8/10 pain when touched Normal [facility] Progress Noteon 09-13-2023 Progress Note Walt [...] Hydrocephalus, adult (CMS/HCC) (HCC) Kidney stone Neuropathy 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 Normal [facility] CT ABDOMEN PELVIS WO IV CONT Kelly 09-07-2023 CT ABDOMEN PELVIS WO IV CONTRAST Patient Name: ANDREW SIFUENTES : 1950 [id number] Exam Date/Time: 09/06/2023 18:14 Procedure: CT ABDOMEN [...] a kidney stone; pt has a hernia [place] [id number] 36 Lm on daughters vm t o advise them to call the number for the distribution manager to get clarification, and to call back with further questions [place] [id number] 36 Yes, they will need to call the number given to them. [facility] 36 Please advise [address] 08-21-2023 36 Name of caller: Zion holt Contact phone number: [phone] Relationship to Patient: patient Provider: MD Quinn Practice: [facility] Chief Complaint/Reason for Call: Shanthi called [...] to reach out to call Maury Cedeño Pig Sticker at [facility] [phone] to get clarifications. TEA did reach back out to [facility] and advised and provider Maury's #. Please advise Best time of day caller can be reached: Any Patient advised that office/PCP has 24-48 business hours to return their call: N/A Normal [facility] Laboratory - CoagulationOrde red By: Carlos Cavazos on 08-21-2023 INR Coag (Bld) [Relative time] 2.7 {INR} [facility] PT Coag (PPP) [Time] 28.9 s 11.7-14.9 [facility] Office Visiton 08-13-2023 Follow-up visit [id number] Tamie Sifuentes cheng R 1950 M [address] Provider Department Center 08/13/2023 [id number] BCUK [facility] None Family History Problem Relation Age of Onset Heart disease Father Cancer Mother Family Status - Relation Status Age at Father Mother Level of Service:04387 [place] OFFICE/OUTPATIENT NEW MODERATE MDM 45 MINUTES Reason for Visit and Comments: New Patient [542] - Bilateral flank pain, hx of kidney stones Nephrolithiasis [804758] Normal [facility] Progress Noteon 08-13-2023 Progress Note [...] Hydrocephalus, adult (CMS/HCC) (HCC) Kidney stone Neuropathy 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 Normal [facility] No Panel InformationOrdered By: Carlos Cavazos on 08-03-2023 Levetiracetam (Keppra) Level 32.4 ug/mL 10.0-40.0 [facility] Comment on above: Performed at: [address] [id number] Director: Alpesh Vázquez MD, Phone: [phone] Basophil percentageOrdered B y: Carlos Cavazos on 07-20-2023 Chloride [Moles/Vol] 106 mmol/L 98-107 [facility] Glucose [Mass/Vol] 98 mg/dL 74-106 [facility] Hemoglobin (Bld) [Mass/Vol] 12.5 g/dL 13.0-16.5 [facility] Potassium [Moles/Vol] 4.3 mmol/L 3.5-5.1 [facility] Sodium [Moles/Vol] 135 mmol/L 136-145 [facility] WBC (Bld) [#/Vol] 13.0 10*3/uL 4.4-11.0 [facility] Determination of erythrocyte mean corpuscular volume (MCV)Ordered By: Carlos Cavazos on 07-20-2023 MCV (RBC) [Entitic vol] 86.2 fL 80-94 [facility] Erythrocyte distribution wid th ratioOrdered By: Carlos Cavazos on 07-20-2023 Erythrocyte distribution width (RBC) [Ratio] 15.3 % 11.6-14.6 [facility] Erythrocyte distribution wid th standard deviationOrdered By: Carlos Cavazos on 07-20-2023 Erythrocyte distribution width (RBC) [Entitic vol] 48.1 fL 35.1-43.9 [facility] Hematocrit Auto (Bld) [Volum e fraction]Ordered By: Carlos Cavazos on 07-20-2023 Hematocrit (Bld) [Volume fraction] 39.9 % 40-54 [facility] Laboratory - Chemistry and C hemistry - challengeOrdered By: Carlos Cavazos on 07-20-2023 CO2 [Moles/Vol] 24.0 mmol/L 21.0-32.0 [facility] Urea nitrogen/Creatinine [Mass ratio] 24.6 mg/mg 10-20 [facility] Laboratory - Hematology and Cell countsOrdered By: Carlos Cavazos on 07-20-2023 MCH (RBC) [Entitic mass] 27.0 pg 27.0-32.0 [facility] MCHC (RBC) [Mass/Vol] 31.3 g/dL 32-36 [facility] Platelet mean volume (Bld) [Entitic vol] 10.7 fL 6.2-12.0 [facility] Platelets (Bld) [#/Vol] 260 10*3/uL 150-450 [facility] No Panel InformationOrdered By: Carlos Cavazos on 07-20-2023 Estimated GFR (MDRD) Amer 114 mL/min >60 [facility] Comment on above: GFR Calc Estimated GFR (MDRD) Non-Af Amer 94 mL/min >60 [facility] Comment on above: Non- GFR Calc RBC Auto (Bld) [#/Vol]Ordere d By: Carlos Cavazos on 07-20-2023 RBC (Bld) [#/Vol] 4.63 10*6/uL 4.6-6.2 [facility] Serum or plasma calcium oral urement (mass/volume)Ordered By: Carlos Cavazos on 07-20-2023 Calcium [Mass/Vol] 8.6 mg/dL 8.5-10.1 [facility] Serum or plasma creatinine m easurement (mass/volume)Ordered By: Carlos Cavazos on 07-20-2023 Creatinine [Mass/Vol] 0.85 mg/dL 0.70-1.30 [facility] Comment on above: The validity of the calculated GFR & GFRAA in patients over 70 years has not been determined. Clinical correlation is essential. Serum or plasma urea nitroge n measurement (mass/volume)Ordered By: Carlos Cavazos on 07-20-2023 Urea nitrogen [Mass/Vol] 21 mg/dL 7-18 [facility] Thin prep Papanicolaou smear with manual screeningOrdered By: Carlos Cavazos on 07-20-2023 Thin prep Papanicolaou smear with manual screening 5 5-15 [facility] Basophil percentageOrdered B y: Carlos Cavazos on 07-18-2023 Chloride [Moles/Vol] 102 mmol/L 98-107 [facility] Glucose [Mass/Vol] 96 mg/dL 74-106 [facility] Hemoglobin (Bld) [Mass/Vol] 12.3 g/dL 13.0-16.5 [facility] Potassium [Moles/Vol] 4.2 mmol/L 3.5-5.1 [facility] Sodium [Moles/Vol] 136 mmol/L 136-145 [facility] WBC (Bld) [#/Vol] 14.7 10*3/uL 4.4-11.0 [facility] Determination of erythrocyte mean corpuscular volume (MCV)Ordered By: Carlos Cavazos on 07-18-2023 MCV (RBC) [Entitic vol] 85.4 fL 80-94 [facility] Erythrocyte distribution wid th ratioOrdered By: Carlos Cavazos on 07-18-2023 Erythrocyte distribution width (RBC) [Ratio] 15.1 % 11.6-14.6 [facility] Erythrocyte distribution wid th standard deviationOrdered By: Carlos Cavazos on 07-18-2023 Erythrocyte distribution width (RBC) [Entitic vol] 47.3 fL 35.1-43.9 [facility] Hematocrit Auto (Bld) [Volum e fraction]Ordered By: Carlos Cavazos on 07-18-2023 Hematocrit (Bld) [Volume fraction] 39.3 % 40-54 [facility] Laboratory - Chemistry and C hemistry - challengeOrdered By: Carlos Cavazos on 07-18-2023 CO2 [Moles/Vol] 27.0 mmol/L 21.0-32.0 [facility] Urea nitrogen/Creatinine [Mass ratio] 24.4 mg/mg 10-20 [facility] Laboratory - Hematology and Cell countsOrdered By: Carlos Cavazos on 07-18-2023 MCH (RBC) [Entitic mass] 26.7 pg 27.0-32.0 [facility] MCHC (RBC) [Mass/Vol] 31.3 g/dL 32-36 [facility] Platelet mean volume (Bld) [Entitic vol] 10.3 fL 6.2-12.0 [facility] Platelets (Bld) [#/Vol] 288 10*3/uL 150-450 [facility] No Panel InformationOrdered By: Carlos Cavazos on 07-18-2023 Estimated GFR (MDRD) Amer 113 mL/min >60 [facility] Comment on above: GFR Calc Estimated GFR (MDRD) Non-Af Amer 93 mL/min >60 [facility] Comment on above: Non- GFR Calc RBC Auto (Bld) [#/Vol]Ordere d By: Carlos Cavazos on 07-18-2023 RBC (Bld) [#/Vol] 4.60 10*6/uL 4.6-6.2 [facility] Serum or plasma calcium oral urement (mass/volume)Ordered By: Carlos Cavazos on 07-18-2023 Calcium [Mass/Vol] 8.9 mg/dL 8.5-10.1 [facility] Serum or plasma creatinine m easurement (mass/volume)Ordered By: Carlos Cavazos on 07-18-2023 Creatinine [Mass/Vol] 0.86 mg/dL 0.70-1.30 [facility] Comment on above: The validity of the calculated GFR & GFRAA in patients over 70 years has not been determined. Clinical correlation is essential. Serum or plasma urea nitroge n measurement (mass/volume)Ordered By: Carlos Cavazos on 07-18-2023 Urea nitrogen [Mass/Vol] 21 mg/dL 7-18 [facility] Thin prep Papanicolaou smear with manual screeningOrdered By: Carlos Cavazos on 07-18-2023 Thin prep Papanicolaou smear with manual screening 7 5-15 [facility] Basophil percentageOrdered B y: Carlos Cavazos on 07-17-2023 Basophil percentage 0-5 SEEN /hpf 0-5 [facility] Bilirubin Test strip Ql (U)O rdered By: Carlos Cavazos on 07-17-2023 Bilirubin Ql (U) Negative Negative [facility] Calcium oxalate crystals det ection in urine sediment by light microscopyOrdered By: Carlos Cavazos on 07-17-2023 Calcium oxalate crystals LM Ql (Urine sed) 1+ /hpf [facility] Culture, urineOrdered By: Sharif Crouch on 07-17-2023 Bacteria identified Cx Nom (U) Positive [facility] Ketones Test strip Ql (U)Ord ered By: Carlos Cavazos on 07-17-2023 Ketones Ql (U) Negative Negative [facility] Mucus LM Ql (Urine sed)Order ed By: Carlos Cavazos on 07-17-2023 Mucus Ql (Urine sed) 0 SEEN /hpf [facility] Nitrite Test strip Ql (U)Ord ered By: Carlos Cavazos on 07-17-2023 Nitrite Ql (U) Negative Negative [facility] No Panel InformationOrdered By: Carlos Cavazos on 07-17-2023 Urine RBC 0 SEEN /hpf 0-5 [facility] Protein Test strip Ql (U)Ord ered By: Carlos Cavazos on 07-17-2023 Protein Ql (U) Negative Negative [facility] Squamous epithelial cells de tection in urine sediment by light microscopyOrdered By: Carlos Cavazos on 07-17-2023 Epithelial cells.squamous LM Ql (Urine sed) 0-5 SEEN /hpf 0-5 [facility] Urine blood detectionOrdered By: Carlos Cavazos on 07-17-2023 RBC Ql (U) Negative Negative [facility] Urine clarityOrdered By: Ted Cavazos on 07-17-2023 Clarity (U) Clear Clear [facility] Urine color determinationOrd ered By: Carlos Cavazos on 07-17-2023 Color (U) Yellow Yellow [facility] Urine glucose detectionOrder ed By: Carlos Cavazos on 07-17-2023 Glucose Ql (U) Normal mg/dl Normal [facility] Urine leukocyte esterase det ection by dipstickOrdered By: Carlos Cavazos on 07-17-2023 Leukocyte esterase Test strip Ql (U) 25 /ul Negative [facility] Urine pHOrdered By: Carlos flores on 07-17-2023 pH (U) 6.0 [pH] 5.0 - 8.0 [facility] Urine sediment bacteria coun t by microscopy (number/high power field)Ordered By: Carlos Cavazos on 07-17-2023 Bacteria LM.HPF (Urine sed) [#/Area] 0 /[HPF] None Seen [facility] Urine specific gravity measu rementOrdered By: Carlos Cavazos on 07-17-2023 Specific gravity (U) [Rel density] 1.020 1.002-1.030 [facility] Urine urobilinogen measureme ntOrdered By: Carlos Cavazos on 07-17-2023 Urobilinogen Ql (U) Normal mg/dl Normal [facility] Absolute lymphocyte countOrd ered By: Carlos Cavazos on 07-16-2023 Lymphocytes Auto (Unsp spec) [#/Vol] 6.02 10*3/uL 0.83-4.51 [facility] Automated lymphocyte count a s percentage of total leukocytesOrdered By: Calros Cavazos on 07-16-2023 Lymphocytes/100 WBC Auto (Unsp spec) 49.1 % 19-41 [facility] Basophil percentageOrdered B y: Carlos Cavazos on 07-16-2023 Basophils/100 WBC (Bld) 0.6 % 0-1 [facility] Chloride [Moles/Vol] 105 mmol/L 98-107 [facility] Eosinophils/100 WBC (Bld) 2.0 % 0-5 [facility] Glucose [Mass/Vol] 93 mg/dL 74-106 [facility] Hemoglobin (Bld) [Mass/Vol] 12.1 g/dL 13.0-16.5 [facility] Monocytes/100 WBC (Bld) 5.3 % 0-10 [facility] Neutrophils (Bld) [#/Vol] 5.2 10*3/uL 2.0-7.7 [facility] Neutrophils/100 WBC (Bld) 42.8 % 47-70 [facility] Potassium [Moles/Vol] 4.3 mmol/L 3.5-5.1 [facility] Sodium [Moles/Vol] 138 mmol/L 136-145 [facility] WBC (Bld) [#/Vol] 12.3 10*3/uL 4.4-11.0 [facility] Blood manual differential co mment interpretation (narrative result)Ordered By: Carlos Cavazos on 07-16-2023 Manual differential comment Shemar (Bld) [Interp] SCANNED [facility] Determination of erythrocyte mean corpuscular volume (MCV)Ordered By: Carlos Cavazos on 07-16-2023 MCV (RBC) [Entitic vol] 86.8 fL 80-94 [facility] Erythrocyte distribution wid th ratioOrdered By: Carlos Cavazos on 07-16-2023 Erythrocyte distribution width (RBC) [Ratio] 15.3 % 11.6-14.6 [facility] Erythrocyte distribution wid th standard deviationOrdered By: Carlos Cavazos on 07-16-2023 Erythrocyte distribution width (RBC) [Entitic vol] 48.9 fL 35.1-43.9 [facility] Hematocrit Auto (Bld) [Volum e fraction]Ordered By: Carlos Cavazos on 07-16-2023 Hematocrit (Bld) [Volume fraction] 38.7 % 40-54 [facility] Immature granulocytes/100 WB C Auto (Bld)Ordered By: Carlos Cavazos on 07-16-2023 Immature granulocytes/100 WBC (Bld) 0.200 % 0.0-0.9 [facility] Comment on above: IG% - Immature Granu locytes (promyelocytes, myelocytes and metamyelocytes) > 1% indicates that a LEFT SHIFT is Present. Laboratory - Chemistry and C hemistry - challengeOrdered By: Carlos Cavazos on 07-16-2023 CO2 [Moles/Vol] 25.0 mmol/L 21.0-32.0 [facility] Urea nitrogen/Creatinine [Mass ratio] 21.0 mg/mg 10-20 [facility] Laboratory - CoagulationOrde red By: Carlos Cavazos on 07-16-2023 INR Coag (Bld) [Relative time] 2.4 {INR} [facility] PT Coag (PPP) [Time] 25.7 s 11.7-14.9 [facility] Laboratory - Hematology and Cell countsOrdered By: Carlos Cavazos on 07-16-2023 MCH (RBC) [Entitic mass] 27.1 pg 27.0-32.0 [facility] MCHC (RBC) [Mass/Vol] 31.3 g/dL 32-36 [facility] Nucleated RBC/100 WBC (Bld) [Ratio] 0 % 0-5 [facility] Platelet mean volume (Bld) [Entitic vol] 10.5 fL 6.2-12.0 [facility] Platelets (Bld) [#/Vol] 289 10*3/uL 150-450 [facility] No Panel InformationOrdered By: Carlos Cavazos on 07-16-2023 Estimated GFR (MDRD) Amer 106 mL/min >60 [facility] Comment on above: GFR Calc Estimated GFR (MDRD) Non-Af Amer 88 mL/min >60 [facility] Comment on above: Non- GFR Calc Reactive Lymphocytes 1+ [facility] RBC Auto (Bld) [#/Vol]Ordere d By: Carlos Cavazos on 07-16-2023 RBC (Bld) [#/Vol] 4.46 10*6/uL 4.6-6.2 [facility] Serum or plasma calcium oral urement (mass/volume)Ordered By: Carlos Cavazos on 07-16-2023 Calcium [Mass/Vol] 9.0 mg/dL 8.5-10.1 [facility] Serum or plasma creatinine m easurement (mass/volume)Ordered By: Carlos Cavazos on 07-16-2023 Creatinine [Mass/Vol] 0.90 mg/dL 0.70-1.30 [facility] Comment on above: The validity of the calculated GFR & GFRAA in patients over 70 years has not been determined. Clinical correlation is essential. Serum or plasma urea nitroge n measurement (mass/volume)Ordered By: Carlos Cavazos on 07-16-2023 Urea nitrogen [Mass/Vol] 19 mg/dL 7-18 [facility] Thin prep Papanicolaou smear with manual screeningOrdered By: Carlos Cavazos on 07-16-2023 Thin prep Papanicolaou smear with manual screening 8 5-15 [facility] Absolute lymphocyte countOrd ered By: Carlos Cavazos on 07-13-2023 Lymphocytes Auto (Unsp spec) [#/Vol] 5.44 10*3/uL 0.83-4.51 [facility] Automated lymphocyte count a s percentage of total leukocytesOrdered By: Carlos Cavazos on 07-13-2023 Lymphocytes/100 WBC Auto (Unsp spec) 47.3 % 19-41 [facility] Basophil percentageOrdered B y: Carlos Cavazos on 07-13-2023 Basophils/100 WBC (Bld) 0.4 % 0-1 [facility] Chloride [Moles/Vol] 107 mmol/L 98-107 [facility] Eosinophils/100 WBC (Bld) 1.7 % 0-5 [facility] Glucose [Mass/Vol] 96 mg/dL 74-106 [facility] Hemoglobin (Bld) [Mass/Vol] 13.5 g/dL 13.0-16.5 [facility] Monocytes/100 WBC (Bld) 4.3 % 0-10 [facility] Neutrophils (Bld) [#/Vol] 5.3 10*3/uL 2.0-7.7 [facility] Neutrophils/100 WBC (Bld) 46.0 % 47-70 [facility] Potassium [Moles/Vol] 4.0 mmol/L 3.5-5.1 [facility] Sodium [Moles/Vol] 139 mmol/L 136-145 [facility] WBC (Bld) [#/Vol] 11.5 10*3/uL 4.4-11.0 [facility] Determination of erythrocyte mean corpuscular volume (MCV)Ordered By: Carlos Cavazos on 07-13-2023 MCV (RBC) [Entitic vol] 86.1 fL 80-94 [facility] Erythrocyte distribution wid th ratioOrdered By: Carlos Cavazos on 07-13-2023 Erythrocyte distribution width (RBC) [Ratio] 15.2 % 11.6-14.6 [facility] Erythrocyte distribution wid th standard deviationOrdered By: Carlos Cavazos on 07-13-2023 Erythrocyte distribution width (RBC) [Entitic vol] 48.0 fL 35.1-43.9 [facility] Hematocrit Auto (Bld) [Volum e fraction]Ordered By: Carlos Cavazos on 07-13-2023 Hematocrit (Bld) [Volume fraction] 42.2 % 40-54 [facility] Immature granulocytes/100 WB C Auto (Bld)Ordered By: Carlos Cavazos on 07-13-2023 Immature granulocytes/100 WBC (Bld) 0.300 % 0.0-0.9 [facility] Comment on above: IG% - Immature Granu locytes (promyelocytes, myelocytes and metamyelocytes) > 1% indicates that a LEFT SHIFT is Present. Laboratory - Chemistry and C hemistry - challengeOrdered By: Carlos Cavazos on 07-13-2023 CO2 [Moles/Vol] 26.0 mmol/L 21.0-32.0 [facility] Urea nitrogen/Creatinine [Mass ratio] 21.8 mg/mg 10-20 [facility] Laboratory - Hematology and Cell countsOrdered By: Carlos Cavazos on 07-13-2023 MCH (RBC) [Entitic mass] 27.6 pg 27.0-32.0 [facility] MCHC (RBC) [Mass/Vol] 32.0 g/dL 32-36 [facility] Nucleated RBC/100 WBC (Bld) [Ratio] 0 % 0-5 [facility] Platelet mean volume (Bld) [Entitic vol] 10.1 fL 6.2-12.0 [facility] Platelets (Bld) [#/Vol] 279 10*3/uL 150-450 [facility] No Panel InformationOrdered By: Carlos Cavazos on 07-13-2023 Estimated GFR (MDRD) Amer 118 mL/min >60 [facility] Comment on above: GFR Calc Estimated GFR (MDRD) Non-Af Amer 98 mL/min >60 [facility] Comment on above: Non- GFR Calc Levetiracetam (Keppra) Level 25.5 ug/mL 10.0-40.0 [facility] Comment on above: Performed at: [address] [id number] Director: Alpesh Vázquez MD, Phone: [phone] RBC Auto (Bld) [#/Vol]Ordere d By: Carlos Cavazos on 07-13-2023 RBC (Bld) [#/Vol] 4.90 10*6/uL 4.6-6.2 [facility] Serum or plasma calcium oral urement (mass/volume)Ordered By: Carlos Cavazos on 07-13-2023 Calcium [Mass/Vol] 9.1 mg/dL 8.5-10.1 [facility] Serum or plasma creatinine m easurement (mass/volume)Ordered By: Carlos Cavazos on 07-13-2023 Creatinine [Mass/Vol] 0.82 mg/dL 0.70-1.30 [facility] Comment on above: The validity of the calculated GFR & GFRAA in patients over 70 years has not been determined. Clinical correlation is essential. Serum or plasma urea nitroge n measurement (mass/volume)Ordered By: Carlos Cavazos on 07-13-2023 Urea nitrogen [Mass/Vol] 18 mg/dL 7-18 [facility] Thin prep Papanicolaou smear with manual screeningOrdered By: Carlos Cavazos on 07-13-2023 Thin prep Papanicolaou smear with manual screening 6 5-15 [facility] No Panel InformationOrdered By: Carlos Cavazos on 07-12-2023 Valproic Acid (Depakene) Level < 3 ug/mL 50-100 [facility] Laboratory - CoagulationOrde red By: Carlos Cavazos on 07-05-2023 INR Coag (Bld) [Relative time] 2.4 {INR} [facility] PT Coag (PPP) [Time] 26.3 s 11.7-14.9 [facility] Laboratory - CoagulationOrde red By: Carlos Cavazos on 07-02-2023 INR Coag (Bld) [Relative time] 1.5 {INR} [facility] PT Coag (PPP) [Time] 18.5 s 11.7-14.9 [facility] Laboratory - CoagulationOrde red By: Carlos Cavazos on 06-28-2023 INR Coag (Bld) [Relative time] 1.7 {INR} [facility] PT Coag (PPP) [Time] 20.5 s 11.7-14.9 [facility] 36on 06-25-2023 36 [facility] called in stating appt scheduled 07/10/23 [place] has to be made further out, pt being transported by cot. Changed appt to 08/13/23 per [facility] only avail time for transport, first avail with DR Buck at 10:[address] [facility] Laboratory - CoagulationOrde red By: Carlos Cavazos on 06-25-2023 INR Coag (Bld) [Relative time] 3.8 {INR} [facility] PT Coag (PPP) [Time] 38.2 s 11.7-14.9 [facility] Laboratory - CoagulationOrde red By: Carlos Cavazos on 06-21-2023 INR Coag (Bld) [Relative time] 3.2 {INR} [facility] PT Coag (PPP) [Time] 32.9 s 11.7-14.9 [facility] No Panel InformationOrdered By: Carlos Cavazos on 06-13-2023 Valproic Acid (Depakene) Level < 3 ug/mL 50-100 [facility] - CoagulationOrde red By: Carlos Cavazos on 06-06-2023 PT Coag (PPP) [Time] 30.5 s 11.7-14.9 [facility] Platelet poor plasma interna tional normalized ratio (INR)Ordered By: Carlos Cavazos on 06-06-2023 INR Coag (PPP) [Relative time] 2.9 {INR} [facility] International normalized rat io (INR) calculationOrdered By: Carlos Cavazos on 05-23-2023 INR Coag (PPP) [Relative time] 2.6 {INR} [facility] - CoagulationOrde red By: Carlos Cavazos on 05-23-2023 PT Coag (PPP) [Time] 27.7 s 11.7-14.9 [facility] Laboratory - CoagulationOrde red By: Carlos Cavazos on 05-09-2023 PT Coag (PPP) [Time] 24.1 s 11.7-14.9 [facility] Whole blood international no rmalized ratio (INR)Ordered By: Carlos Cavazos on 05-09-2023 INR Coag (Bld) [Relative time] 2.1 {INR} [facility] - CoagulationOrde red By: Carlos Cavazos on 04-23-2023 PT Coag (PPP) [Time] 26.4 s 11.7-14.9 [facility] Whole blood international no rmalized ratio (INR)Ordered By: Carlos Cavazos on 04-23-2023 INR Coag (Bld) [Relative time] 2.4 {INR} [facility] INR in Blood by Coagulation assayOrdered By: Carlos Cavazos on 04-09-2023 INR Coag (Bld) [Relative time] 2.1 {INR} [facility] - CoagulationOrde red By: Carlos Cavazos on 04-09-2023 PT Coag (PPP) [Time] 23.9 s 11.7-14.9 [facility] INR in Blood by Coagulation assayOrdered By: Carlos Cavazos on 04-02-2023 INR Coag (Bld) [Relative time] 2.2 {INR} [facility] - CoagulationOrde red By: Carlos Cavazos on 04-02-2023 PT Coag (PPP) [Time] 24.5 s 11.7-14.9 [facility] INR in Blood by Coagulation assayOrdered By: Carlos Cavazos on 03-26-2023 INR Coag (Bld) [Relative time] 1.7 {INR} [facility] - CoagulationOrde red By: Carlos Cavazos on 03-26-2023 PT Coag (PPP) [Time] 19.9 s 11.7-14.9 [facility] INR in Blood by Coagulation assayOrdered By: Carlos Cavazos on 03-22-2023 INR Coag (Bld) [Relative time] 1.3 {INR} [facility] - CoagulationOrde red By: Carlos Cavazos on 03-22-2023 PT Coag (PPP) [Time] 16.4 s 11.7-14.9 [facility] INR in Blood by Coagulation assayOrdered By: Carlos Cavazos on 03-08-2023 INR Coag (Bld) [Relative time] 2.0 {INR} [facility] - CoagulationOrde red By: Carlos Cavazos on 03-08-2023 PT Coag (PPP) [Time] 22.5 s 11.7-14.9 [facility] Laboratory - CoagulationOrde red By: Carlos Cavazos on 02-22-2023 INR Coag (Bld) [Relative time] 2.2 {INR} [facility] Comment on above: Critical Value > 4.0 Whole blood prothrombin time Ordered By: Carlos Cavazos on 02-22-2023 PT Coag (Bld) [Time] 24.0 s 11.7-14.9 [facility] INR in Blood by Coagulation assayOrdered By: Cliff Bruner on 02-15-2023 INR Coag (Bld) [Relative time] 2.0 {INR} [facility] - CoagulationOrde red By: Cliff Bruner on 02-15-2023 PT Coag (PPP) [Time] 22.8 s 11.7-14.9 [facility] INR in Blood by Coagulation assayOrdered By: Carlos Cavazos on 02-08-2023 INR Coag (Bld) [Relative time] 2.1 {INR} [facility] - CoagulationOrde red By: Carlos Cavazos on 02-08-2023 PT Coag (PPP) [Time] 23.5 s 11.7-14.9 [facility] INR in Blood by Coagulation assayOrdered By: Carlos Cavazos on 01-31-2023 INR Coag (Bld) [Relative time] 2.0 {INR} [facility] - CoagulationOrde red By: Carlos Cavazos on 01-31-2023 PT Coag (PPP) [Time] 22.4 s 11.7-14.9 [facility] Laboratory - CoagulationOrde red By: Carlos Cavazos on 01-29-2023 INR Coag (Bld) [Relative time] 1.8 {INR} [facility] Comment on above: Critical Value > 4.0 Whole blood prothrombin time Ordered By: Carlos Cavazos on 01-29-2023 PT Coag (Bld) [Time] 19.9 s 11.7-14.9 [facility] INR in Blood by Coagulation assayOrdered By: Carlos Cavazos on 01-26-2023 INR Coag (Bld) [Relative time] 1.5 {INR} [facility] - CoagulationOrde red By: Carlos Cavazos on 01-26-2023 PT Coag (PPP) [Time] 18.3 s 11.7-14.9 [facility] INR in Blood by Coagulation assayOrdered By: Carlos Cavazos on 01-24-2023 INR Coag (Bld) [Relative time] 1.3 {INR} [facility] - CoagulationOrde red By: Carlos Cavazos on 01-24-2023 PT Coag (PPP) [Time] 16.2 s 11.7-14.9 [facility] Basophil percentageOrdered B y: Carlos Cavazos on 01-22-2023 Basophil percentage 0 SEEN /hpf 0-5 [facility] Bilirubin Test strip Ql (U)O rdered By: Carlos Cavazos on 01-22-2023 Bilirubin Ql (U) Negative Negative [facility] Calcium oxalate crystals det ection in urine sediment by light microscopyOrdered By: Carlos Cavazos on 01-22-2023 Calcium oxalate crystals LM Ql (Urine sed) 1+ /hpf [facility] Culture, urineOrdered By: Sharif Crouch on 01-22-2023 Bacteria identified Cx Nom (U) Positive [facility] Ketones Test strip Ql (U)Ord ered By: Carlos Cavazos on 01-22-2023 Ketones Ql (U) Negative Negative [facility] Mucus LM Ql (Urine sed)Order ed By: Carlos Cavazos on 01-22-2023 Mucus Ql (Urine sed) 1+ /hpf [facility] Nitrite Test strip Ql (U)Ord ered By: Carlos Cavazos on 01-22-2023 Nitrite Ql (U) Negative Negative [facility] Protein Test strip Ql (U)Ord ered By: Carlos Cavazos on 01-22-2023 Protein Ql (U) Negative Negative [facility] Squamous epithelial cells de tection in urine sediment by light microscopyOrdered By: Carlos Cavazos on 01-22-2023 Epithelial cells.squamous LM Ql (Urine sed) 0 SEEN /hpf 0-5 [facility] Urine blood detectionOrdered By: Carlos Cavazos on 01-22-2023 RBC Ql (U) Negative Negative [facility] RBC Ql (U) 0 SEEN /hpf 0-5 [facility] Urine clarityOrdered By: Ted Cavazos on 01-22-2023 Clarity (U) Sl. Cloudy Clear [facility] Urine color determinationOrd ered By: Carlos Cavazos on 01-22-2023 Color (U) Yellow Yellow [facility] Urine glucose detectionOrder ed By: Carlos Cavazos on 01-22-2023 Glucose Ql (U) Normal mg/dl Normal [facility] Urine leukocyte esterase det ection by dipstickOrdered By: Carlos Cavazos on 01-22-2023 Leukocyte esterase Test strip Ql (U) Negative Negative [facility] Urine pHOrdered By: Carlos flores on 01-22-2023 pH (U) 5.0 [pH] 5.0 - 8.0 [facility] Urine sediment bacteria coun t by microscopy (number/high power field)Ordered By: Carlos Cavazos on 01-22-2023 Bacteria LM.HPF (Urine sed) [#/Area] 2 /[HPF] None Seen [facility] Urine specific gravity measu rementOrdered By: Carlos Cavazos on 01-22-2023 Specific gravity (U) [Rel density] 1.025 1.002-1.030 [facility] Urobilinogen Auto test strip Ql (U)Ordered By: Carlos Cavazos on 01-22-2023 Urobilinogen Ql (U) Normal mg/dl Normal [facility] INR in Blood by Coagulation assayOrdered By: Carlos Cavazos on 01-10-2023 INR Coag (Bld) [Relative time] 2.0 {INR} [facility] - CoagulationOrde red By: Carlos Cavazos on 01-10-2023 PT Coag (PPP) [Time] 22.6 s 11.7-14.9 [facility] INR in Blood by Coagulation assayOrdered By: Carlos Cavazos on 12-27-2022 INR Coag (Bld) [Relative time] 2.1 {INR} [facility] - CoagulationOrde red By: Carlos Cavazos on 12-27-2022 PT Coag (PPP) [Time] 24.1 s 11.7-14.9 [facility] INR in Blood by Coagulation assayOrdered By: Carlos Cavazos on 12-21-2022 INR Coag (Bld) [Relative time] 2.4 {INR} [facility] - CoagulationOrde red By: Carlos Cavazos on 12-21-2022 PT Coag (PPP) [Time] 26.7 s 11.7-14.9 [facility] Laboratory - CoagulationOrde red By: Carlos Cavazos on 12-14-2022 INR Coag (Bld) [Relative time] 2.3 {INR} [facility] Comment on above: Critical Value > 4.0 Whole blood prothrombin time Ordered By: Carlos Cavazos on 12-14-2022 PT Coag (Bld) [Time] 25.2 s 11.7-14.9 [facility] Laboratory - CoagulationOrde red By: Carlos Cavazos on 12-07-2022 INR Coag (Bld) [Relative time] 2.5 {INR} [facility] Comment on above: Critical Value > 4.0 Whole blood prothrombin time Ordered By: Carlos Cavazos on 12-07-2022 PT Coag (Bld) [Time] 26.9 s 11.7-14.9 [facility] Amorphous sediment detection in urine sediment by light microscopyOrdered By: Carlos Cavazos on 11-24-2022 Amorphous sediment LM Ql (Urine sed) 1+ [facility] Basophil percentageOrdered B y: Carlos Cavazos on 11-24-2022 Basophil percentage 0 SEEN /hpf 0-5 [facility] Bilirubin [Mass/Vol] 0.30 mg/dL 0.20-1.00 [facility] Comment on above: For patients on eltr ombopag therapy, use of Dimension [place] TBIL is not recommended. Chloride [Moles/Vol] 107 mmol/L 98-107 [facility] Glucose [Mass/Vol] 95 mg/dL 74-106 [facility] Potassium [Moles/Vol] 4.2 mmol/L 3.5-5.1 [facility] Protein [Mass/Vol] 6.9 g/dL 6.4-8.2 [facility] Sodium [Moles/Vol] 138 mmol/L 136-145 [facility] WBC (Bld) [#/Vol] 10.4 10*3/uL 4.4-11.0 [facility] Bilirubin Test strip Ql (U)O rdered By: Carlos Cavazos on 11-24-2022 Bilirubin Ql (U) Negative Negative [facility] Blood erythrocytes count (nu mber/volume)Ordered By: Carlos Cavazos on 11-24-2022 RBC (Bld) [#/Vol] 4.44 10*6/uL 4.6-6.2 [facility] Blood hemoglobin measurement (mass/volume)Ordered By: Carlos Cavazos on 11-24-2022 Hemoglobin (Bld) [Mass/Vol] 11.8 g/dL 13.0-16.5 [facility] Blood platelet mean volumeOr dered By: Carlos Cavazos on 11-24-2022 Platelet mean volume (Bld) [Entitic vol] 9.7 fL 6.2-12.0 [facility] Calcium oxalate crystals det ection in urine sediment by light microscopyOrdered By: Carlos Cavazos on 11-24-2022 Calcium oxalate crystals LM Ql (Urine sed) RARE /hpf [facility] Culture, urineOrdered By: Sharif Crouch on 11-24-2022 Bacteria identified Cx Nom (U) Positive [facility] Determination of erythrocyte mean corpuscular volume (MCV)Ordered By: Carlos Cavazos on 11-24-2022 MCV (RBC) [Entitic vol] 84.7 fL 80-94 [facility] Hematocrit Auto (Bld) [Volum e fraction]Ordered By: Carlos Cavazos on 11-24-2022 Hematocrit (Bld) [Volume fraction] 37.6 % 40-54 [facility] Ketones Test strip Ql (U)Ord ered By: Carlos Cavazos on 11-24-2022 Ketones Ql (U) Negative Negative [facility] Laboratory - Chemistry and C hemistry - challengeOrdered By: Carlos Cavazos on 11-24-2022 ALP [Catalytic activity/Vol] 103 U/L 45-117 [facility] ALT [Catalytic activity/Vol] 14 U/L 16-61 [facility] CO2 [Moles/Vol] 26.0 mmol/L 21.0-32.0 [facility] Globulin (S) [Mass/Vol] 4.0 g/dL 2.2-4.2 [facility] Urea nitrogen/Creatinine [Mass ratio] 24.1 mg/mg 10-20 [facility] Laboratory - Hematology and Cell countsOrdered By: Carlos Cavazos on 11-24-2022 Erythrocyte distribution width (RBC) [Entitic vol] 49.4 fL 35.1-43.9 [facility] Erythrocyte distribution width (RBC) [Ratio] 16.0 % 11.6-14.6 [facility] MCH (RBC) [Entitic mass] 26.6 pg 27.0-32.0 [facility] MCHC Auto (RBC) [Mass/Vol]Or dered By: Carlos Cavazos on 11-24-2022 MCHC (RBC) [Mass/Vol] 31.4 g/dL 32-36 [facility] Mucus LM Ql (Urine sed)Order ed By: Carlos Cavazos on 11-24-2022 Mucus Ql (Urine sed) 0 SEEN /hpf [facility] Nitrite Test strip Ql (U)Ord ered By: Carlos Cavazos on 11-24-2022 Nitrite Ql (U) Negative Negative [facility] No Panel InformationOrdered By: Carlos Cavazos on 11-24-2022 Estimated GFR (MDRD) Amer 118 mL/min >60 [facility] Comment on above: GFR Calc Estimated GFR (MDRD) Non-Af Amer 97 mL/min >60 [facility] Comment on above: Non- GFR Calc Platelets bldOrdered By: Ted Cavazos on 11-24-2022 Platelets (Bld) [#/Vol] 309 10*3/uL 150-450 [facility] Protein Test strip Ql (U)Ord ered By: Carlos Cavazos on 11-24-2022 Protein Ql (U) Negative Negative [facility] Serum or plasma albumin oral urement (mass/volume)Ordered By: Carlos Cavazos on 11-24-2022 Albumin [Mass/Vol] 2.9 g/dL 3.2-5.0 [facility] Serum or plasma albumin/glob ulin mass ratioOrdered By: Carlos Cavazos on 11-24-2022 Albumin/Globulin [Mass ratio] 0.7 {ratio} 0.9-2.4 [facility] Serum or plasma calcium oral urement (mass/volume)Ordered By: Carlos Cavazos on 11-24-2022 Calcium [Mass/Vol] 8.7 mg/dL 8.5-10.1 [facility] Serum or plasma creatinine m easurement (mass/volume)Ordered By: Carlos Cavazos on 11-24-2022 Creatinine [Mass/Vol] 0.83 mg/dL 0.70-1.30 [facility] Comment on above: The validity of the calculated GFR & GFRAA in patients over 70 years has not been determined. Clinical correlation is essential. Serum or plasma urea nitroge n measurement (mass/volume)Ordered By: Carlos Cavazos on 11-24-2022 Urea nitrogen [Mass/Vol] 20 mg/dL 7-18 [facility] Squamous epithelial cells de tection in urine sediment by light microscopyOrdered By: Carlos Cavazos on 11-24-2022 Epithelial cells.squamous LM Ql (Urine sed) 0 SEEN /hpf 0-5 [facility] Thin prep Papanicolaou smear with manual screeningOrdered By: Carlos Cavazos on 11-24-2022 Thin prep Papanicolaou smear with manual screening 10 U/L 15-37 [facility] Thin prep Papanicolaou smear with manual screening 5 5-15 [facility] Urine blood detectionOrdered By: Carlos Cavazos on 11-24-2022 RBC Ql (U) Negative Negative [facility] RBC Ql (U) 0 SEEN /hpf 0-5 [facility] Urine clarityOrdered By: Ted Cavazos on 11-24-2022 Clarity (U) Clear Clear [facility] Urine color determinationOrd ered By: Carlos Cavazos on 11-24-2022 Color (U) Yellow Yellow [facility] Urine glucose detectionOrder ed By: Carlos Cavazos on 11-24-2022 Glucose Ql (U) Normal mg/dl Normal [facility] Urine leukocyte esterase det ection by dipstickOrdered By: Carlos Cavazos on 11-24-2022 Leukocyte esterase Test strip Ql (U) Negative Negative [facility] Urine pHOrdered By: Carlos flores on 11-24-2022 pH (U) 7.0 [pH] 5.0 - 8.0 [facility] Urine sediment bacteria coun t by microscopy (number/high power field)Ordered By: Carlos Cavazos on 11-24-2022 Bacteria LM.HPF (Urine sed) [#/Area] 0 /[HPF] None Seen [facility] Urine specific gravity measu rementOrdered By: Carlos Cavazos on 11-24-2022 Specific gravity (U) [Rel density] 1.010 1.002-1.030 [facility] Urobilinogen Auto test strip Ql (U)Ordered By: Carlos Cavazos on 11-24-2022 Urobilinogen Ql (U) Normal mg/dl Normal [facility] Laboratory - CoagulationOrde red By: Carlos Cavazos on 11-23-2022 INR Coag (Bld) [Relative time] 2.2 {INR} [facility] Comment on above: Critical Value > 4.0 Whole blood prothrombin time Ordered By: Carlos Cavazos on 11-23-2022 PT Coag (Bld) [Time] 24.5 s 11.7-14.9 [facility] Basophil percentageOrdered B y: Carlos Cavazos on 11-22-2022 Chloride [Moles/Vol] 105 mmol/L 98-107 [facility] Glucose [Mass/Vol] 91 mg/dL 74-106 [facility] Potassium [Moles/Vol] 4.1 mmol/L 3.5-5.1 [facility] Sodium [Moles/Vol] 138 mmol/L 136-145 [facility] WBC (Bld) [#/Vol] 12.0 10*3/uL 4.4-11.0 [facility] Blood erythrocytes count (nu mber/volume)Ordered By: Carlos Cavazos on 11-22-2022 RBC (Bld) [#/Vol] 4.65 10*6/uL 4.6-6.2 [facility] Blood hemoglobin measurement (mass/volume)Ordered By: Carlos Cavazos on 11-22-2022 Hemoglobin (Bld) [Mass/Vol] 12.4 g/dL 13.0-16.5 [facility] Blood platelet mean volumeOr dered By: Carlos Cavazos on 11-22-2022 Platelet mean volume (Bld) [Entitic vol] 10.3 fL 6.2-12.0 [facility] Determination of erythrocyte mean corpuscular volume (MCV)Ordered By: Carlos Cavazos on 11-22-2022 MCV (RBC) [Entitic vol] 86.0 fL 80-94 [facility] Hematocrit Auto (Bld) [Volum e fraction]Ordered By: Carlos Cavazos on 11-22-2022 Hematocrit (Bld) [Volume fraction] 40.0 % 40-54 [facility] Laboratory - Chemistry and C hemistry - challengeOrdered By: Carlos Cavazos on 11-22-2022 CO2 [Moles/Vol] 25.0 mmol/L 21.0-32.0 [facility] Urea nitrogen/Creatinine [Mass ratio] 23.6 mg/mg 10-20 [facility] - Hematology and Cell countsOrdered By: Carlos Cavazos on 11-22-2022 Erythrocyte distribution width (RBC) [Entitic vol] 50.0 fL 35.1-43.9 [facility] Erythrocyte distribution width (RBC) [Ratio] 15.9 % 11.6-14.6 [facility] MCH (RBC) [Entitic mass] 26.7 pg 27.0-32.0 [facility] MCHC Auto (RBC) [Mass/Vol]Or dered By: Carlos Cavazos on 11-22-2022 MCHC (RBC) [Mass/Vol] 31.0 g/dL 32-36 [facility] No Panel InformationOrdered By: Carlos Cavazos on 11-22-2022 Estimated GFR (MDRD) Amer 115 mL/min >60 [facility] Comment on above: GFR Calc Estimated GFR (MDRD) Non-Af Amer 95 mL/min >60 [facility] Comment on above: Non- GFR Calc Platelets bldOrdered By: Pet er Kenny on 11-22-2022 Platelets (Bld) [#/Vol] 320 10*3/uL 150-450 [facility] Serum or plasma calcium oral urement (mass/volume)Ordered By: Carlos Cavazos on 11-22-2022 Calcium [Mass/Vol] 8.7 mg/dL 8.5-10.1 [facility] Serum or plasma creatinine m easurement (mass/volume)Ordered By: Carlos Cavazos on 11-22-2022 Creatinine [Mass/Vol] 0.85 mg/dL 0.70-1.30 [facility] Comment on above: The validity of the calculated GFR & GFRAA in patients over 70 years has not been determined. Clinical correlation is essential. Serum or plasma urea nitroge n measurement (mass/volume)Ordered By: Carlos Cavazos on 11-22-2022 Urea nitrogen [Mass/Vol] 20 mg/dL 7-18 [facility] Thin prep Papanicolaou smear with manual screeningOrdered By: Carlos Cavazos on 11-22-2022 Thin prep Papanicolaou smear with manual screening 8 5-15 [facility] - CoagulationOrde red By: Carlos Cavazos on 11-09-2022 INR Coag (Bld) [Relative time] 2.1 {INR} [facility] Comment on above: Critical Value > 4.0 Whole blood prothrombin time Ordered By: Carlos Cavazos on 11-09-2022 PT Coag (Bld) [Time] 22.6 s 11.7-14.9 [facility] Laboratory - CoagulationOrde red By: Carlos Cavazos on 10-26-2022 INR Coag (Bld) [Relative time] 2.6 {INR} [facility] Comment on above: Critical Value > 4.0 Whole blood prothrombin time Ordered By: Carlos Cavazos on 10-26-2022 PT Coag (Bld) [Time] 28.5 s 11.7-14.9 [facility] Laboratory - CoagulationOrde red By: Carlos Cavazos on 10-12-2022 INR Coag (Bld) [Relative time] 2.4 {INR} [facility] Comment on above: Critical Value > 4.0 Whole blood prothrombin time Ordered By: Carlos Cavazos on 10-12-2022 PT Coag (Bld) [Time] 26.4 s 11.7-14.9 [facility] Laboratory - CoagulationOrde red By: Carlos Cavazos on 10-05-2022 INR Coag (Bld) [Relative time] 2.6 {INR} [facility] Comment on above: Critical Value > 4.0 Whole blood prothrombin time Ordered By: Carlos Cavazos on 10-05-2022 PT Coag (Bld) [Time] 28.0 s 11.7-14.9 [facility] Laboratory - CoagulationOrde red By: Carlos Cavazos on 09-28-2022 INR Coag (Bld) [Relative time] 2.7 {INR} [facility] Comment on above: Critical Value > 4.0 Whole blood prothrombin time Ordered By: Carlos Cavazos on 09-28-2022 PT Coag (Bld) [Time] 28.9 s 11.7-14.9 [facility] Laboratory - CoagulationOrde red By: Carlos Cavazos on 09-14-2022 INR Coag (Bld) [Relative time] 2.5 {INR} [facility] Comment on above: Critical Value > 4.0 Whole blood prothrombin time Ordered By: Carlos Cavazos on 09-14-2022 PT Coag (Bld) [Time] 27.4 s 11.7-14.9 [facility] Laboratory - CoagulationOrde red By: Carlos Cavazos on 08-31-2022 INR Coag (Bld) [Relative time] 2.3 {INR} [facility] Comment on above: Critical Value > 4.0 Whole blood prothrombin time Ordered By: Carlos Cavazos on 08-31-2022 PT Coag (Bld) [Time] 25.4 s 11.7-14.9 [facility] Basophil percentageOrdered B y: Carlos Cavazos on 08-23-2022 Chloride [Moles/Vol] 108 mmol/L 98-107 [facility] Glucose [Mass/Vol] 86 mg/dL 74-106 [facility] Potassium [Moles/Vol] 4.3 mmol/L 3.5-5.1 [facility] Sodium [Moles/Vol] 136 mmol/L 136-145 [facility] WBC (Bld) [#/Vol] 10.0 10*3/uL 4.4-11.0 [facility] Blood erythrocytes count (nu mber/volume)Ordered By: Carlos Cavazos on 08-23-2022 RBC (Bld) [#/Vol] 4.77 10*6/uL 4.6-6.2 [facility] Blood hemoglobin measurement (mass/volume)Ordered By: Carlos Cavazos on 08-23-2022 Hemoglobin (Bld) [Mass/Vol] 12.5 g/dL 13.0-16.5 [facility] Blood platelet mean volumeOr dered By: Carlos Cavazos on 08-23-2022 Platelet mean volume (Bld) [Entitic vol] 11.0 fL 6.2-12.0 [facility] Determination of erythrocyte mean corpuscular volume (MCV)Ordered By: Carlos Cavazos on 08-23-2022 MCV (RBC) [Entitic vol] 84.3 fL 80-94 [facility] Hematocrit Auto (Bld) [Volum e fraction]Ordered By: Carlos Cavazos on 08-23-2022 Hematocrit (Bld) [Volume fraction] 40.2 % 40-54 [facility] - Chemistry and C hemistry - challengeOrdered By: Carlos Cavazos on 08-23-2022 CO2 [Moles/Vol] 24.0 mmol/L 21.0-32.0 [facility] Urea nitrogen/Creatinine [Mass ratio] 22.8 mg/mg 10-20 [facility] Laboratory - Hematology and Cell countsOrdered By: Carlos Cavazos on 08-23-2022 Erythrocyte distribution width (RBC) [Entitic vol] 49.3 fL 35.1-43.9 [facility] Erythrocyte distribution width (RBC) [Ratio] 16.0 % 11.6-14.6 [facility] MCH (RBC) [Entitic mass] 26.2 pg 27.0-32.0 [facility] MCHC Auto (RBC) [Mass/Vol]Or dered By: Carlos Cavazos on 08-23-2022 MCHC (RBC) [Mass/Vol] 31.1 g/dL 32-36 [facility] No Panel InformationOrdered By: Carlos Cavazos on 08-23-2022 Estimated GFR (MDRD) Amer 134 mL/min >60 [facility] Comment on above: GFR Calc Estimated GFR (MDRD) Non-Af Amer 110 mL/min >60 [facility] Comment on above: Non- GFR Calc Platelets bldOrdered By: Ted Cavazos on 08-23-2022 Platelets (Bld) [#/Vol] 268 10*3/uL 150-450 [facility] Serum or plasma calcium oral urement (mass/volume)Ordered By: Carlos Cavazos on 08-23-2022 Calcium [Mass/Vol] 9.1 mg/dL 8.5-10.1 [facility] Serum or plasma creatinine m easurement (mass/volume)Ordered By: Carlos Cavazos on 08-23-2022 Creatinine [Mass/Vol] 0.74 mg/dL 0.70-1.30 [facility] Comment on above: The validity of the calculated GFR & GFRAA in patients over 70 years has not been determined. Clinical correlation is essential. Serum or plasma urea nitroge n measurement (mass/volume)Ordered By: Carlos Cavazos on 08-23-2022 Urea nitrogen [Mass/Vol] 17 mg/dL 7-18 [facility] Thin prep Papanicolaou smear with manual screeningOrdered By: Carlos Cavazos on 08-23-2022 Thin prep Papanicolaou smear with manual screening 4 5-15 [facility] Laboratory - CoagulationOrde red By: Carlos Cavazos on 08-17-2022 INR Coag (Bld) [Relative time] 2.8 {INR} [facility] Comment on above: Critical Value > 4.0 Whole blood prothrombin time Ordered By: Carlos Cavazos on 08-17-2022 PT Coag (Bld) [Time] 29.6 s 11.7-14.9 [facility] Laboratory - CoagulationOrde red By: Carlos Cavazos on 08-14-2022 INR Coag (Bld) [Relative time] 3.9 {INR} [facility] Comment on above: Critical Value > 4.0 Whole blood prothrombin time Ordered By: Carlos Cavazos on 08-14-2022 PT Coag (Bld) [Time] 40.6 s 11.7-14.9 [facility] Laboratory - CoagulationOrde red By: Carlos Cavazos on 07-31-2022 INR Coag (Bld) [Relative time] 2.5 {INR} [facility] Comment on above: Critical Value > 4.0 Whole blood prothrombin time Ordered By: Carlos Cavazos on 07-31-2022 PT Coag (Bld) [Time] 26.8 s 11.7-14.9 [facility] INR in Blood by Coagulation assayOrdered By: Carlos Cavazos on 07-24-2022 INR Coag (Bld) [Relative time] 2.3 {INR} [facility] - CoagulationOrde red By: Carlos Cavazos on 07-24-2022 PT Coag (PPP) [Time] 24.7 s 11.7-14.9 [facility] Laboratory - CoagulationOrde red By: Carlos Cavazos on 07-20-2022 INR Coag (Bld) [Relative time] 1.9 {INR} [facility] Comment on above: Critical Value > 4.0 Whole blood prothrombin time Ordered By: Carlos Cavazos on 07-20-2022 PT Coag (Bld) [Time] 20.6 s 11.7-14.9 [facility] Laboratory - CoagulationOrde red By: Carlos Cavazos on 07-17-2022 INR Coag (Bld) [Relative time] 1.3 {INR} [facility] Comment on above: Critical Value > 4.0 Whole blood prothrombin time Ordered By: Carlos Cavazos on 07-17-2022 PT Coag (Bld) [Time] 15.9 s 11.7-14.9 [facility] Basophil percentageOrdered B y: Carlos Cavazos on 07-11-2022 Chloride [Moles/Vol] 105 mmol/L 98-107 [facility] Glucose [Mass/Vol] 97 mg/dL 74-106 [facility] Potassium [Moles/Vol] 3.9 mmol/L 3.5-5.1 [facility] Sodium [Moles/Vol] 140 mmol/L 136-145 [facility] WBC (Bld) [#/Vol] 9.4 10*3/uL 4.4-11.0 [facility] Blood erythrocytes count (nu mber/volume)Ordered By: Carlos Cavaozs on 07-11-2022 RBC (Bld) [#/Vol] 4.66 10*6/uL 4.6-6.2 [facility] Blood hemoglobin measurement (mass/volume)Ordered By: Carlos Cavazos on 07-11-2022 Hemoglobin (Bld) [Mass/Vol] 12.0 g/dL 13.0-16.5 [facility] Blood platelet mean volumeOr dered By: Carlos Cavazos on 07-11-2022 Platelet mean volume (Bld) [Entitic vol] 10.4 fL 6.2-12.0 [facility] Determination of erythrocyte mean corpuscular volume (MCV)Ordered By: Carlos Cavazos on 07-11-2022 MCV (RBC) [Entitic vol] 83.7 fL 80-94 [facility] Hematocrit Auto (Bld) [Volum e fraction]Ordered By: Carlos Cavazos on 07-11-2022 Hematocrit (Bld) [Volume fraction] 39.0 % 40-54 [facility] - Chemistry and C hemistry - challengeOrdered By: Carlos Cavazos on 07-11-2022 CO2 [Moles/Vol] 28.0 mmol/L 21.0-32.0 [facility] Urea nitrogen/Creatinine [Mass ratio] 23.0 mg/mg 10-20 [facility] - Hematology and Cell countsOrdered By: Carlos Cavazos on 07-11-2022 Erythrocyte distribution width (RBC) [Entitic vol] 51.0 fL 35.1-43.9 [facility] Erythrocyte distribution width (RBC) [Ratio] 16.8 % 11.6-14.6 [facility] MCH (RBC) [Entitic mass] 25.8 pg 27.0-32.0 [facility] MCHC Auto (RBC) [Mass/Vol]Or dered By: Carlos Cavazos on 07-11-2022 MCHC (RBC) [Mass/Vol] 30.8 g/dL 32-36 [facility] No Panel InformationOrdered By: Carlos Cavazos on 07-11-2022 Estimated GFR (MDRD) Amer 126 mL/min >60 [facility] Comment on above: GFR Calc Estimated GFR (MDRD) Non-Af Amer 104 mL/min >60 [facility] Comment on above: Non- GFR Calc Platelets bldOrdered By: Ted Cavazos on 07-11-2022 Platelets (Bld) [#/Vol] 291 10*3/uL 150-450 [facility] Serum or plasma calcium oral urement (mass/volume)Ordered By: Carlos Cavazos on 07-11-2022 Calcium [Mass/Vol] 9.2 mg/dL 8.5-10.1 [facility] Serum or plasma creatinine m easurement (mass/volume)Ordered By: Carlos Cavazos on 07-11-2022 Creatinine [Mass/Vol] 0.78 mg/dL 0.70-1.30 [facility] Comment on above: The validity of the calculated GFR & GFRAA in patients over 70 years has not been determined. Clinical correlation is essential. Serum or plasma urea nitroge n measurement (mass/volume)Ordered By: Carlos Cavazos on 07-11-2022 Urea nitrogen [Mass/Vol] 18 mg/dL 7-18 [facility] Thin prep Papanicolaou smear with manual screeningOrdered By: Carlos Cavazos on 07-11-2022 Thin prep Papanicolaou smear with manual screening 7 5-15 [facility] - CoagulationOrde red By: Carlos Cavazos on 07-10-2022 INR Coag (Bld) [Relative time] 1.8 {INR} [facility] Comment on above: Critical Value > 4.0 Whole blood prothrombin time Ordered By: Carlos Cavazos on 07-10-2022 PT Coag (Bld) [Time] 21.0 s 11.7-14.9 [facility] Laboratory - CoagulationOrde red By: Carlos Cavazos on 07-03-2022 INR Coag (Bld) [Relative time] 1.9 {INR} [facility] Comment on above: Critical Value > 4.0 Whole blood prothrombin time Ordered By: Carlos Cavazos on 07-03-2022 PT Coag (Bld) [Time] 22.7 s 11.7-14.9 [facility] INR in Blood by Coagulation assayOrdered By: Carlos Cavazos on 06-27-2022 INR Coag (Bld) [Relative time] 2.9 {INR} [facility] - CoagulationOrde red By: Carlos Cavazos on 06-27-2022 PT Coag (PPP) [Time] 29.9 s 11.7-14.9 [facility] Laboratory - CoagulationOrde red By: Carlos Cavazos on 06-13-2022 INR Coag (Bld) [Relative time] 2.1 {INR} [facility] Comment on above: Critical Value > 4.0 Whole blood prothrombin time Ordered By: Carlos Cavazos on 06-13-2022 PT Coag (Bld) [Time] 24.4 s 11.7-14.9 [facility] Laboratory - CoagulationOrde red By: Carlos Cavazos on 06-06-2022 INR Coag (Bld) [Relative time] 1.5 {INR} [facility] Comment on above: Critical Value > 4.0 Whole blood prothrombin time Ordered By: Carlos Cavazos on 06-06-2022 PT Coag (Bld) [Time] 18.4 s 11.7-14.9 [facility] Basophil percentageOrdered B y: Carlos Cavazos on 05-30-2022 Chloride [Moles/Vol] 105 mmol/L 98-107 [facility] Glucose [Mass/Vol] 95 mg/dL 74-106 [facility] Potassium [Moles/Vol] 3.9 mmol/L 3.5-5.1 [facility] Sodium [Moles/Vol] 140 mmol/L 136-145 [facility] WBC (Bld) [#/Vol] 7.6 10*3/uL 4.4-11.0 [facility] Blood erythrocytes count (nu mber/volume)Ordered By: Carlos Cavazos on 05-30-2022 RBC (Bld) [#/Vol] 4.79 10*6/uL 4.6-6.2 [facility] Blood hemoglobin measurement (mass/volume)Ordered By: Carlos Cavazos on 05-30-2022 Hemoglobin (Bld) [Mass/Vol] 12.1 g/dL 13.0-16.5 [facility] Blood platelet mean volumeOr dered By: Carlos Cavazos on 05-30-2022 Platelet mean volume (Bld) [Entitic vol] 10.4 fL 6.2-12.0 [facility] Determination of erythrocyte mean corpuscular volume (MCV)Ordered By: Carlos Cavazos on 05-30-2022 MCV (RBC) [Entitic vol] 82.5 fL 80-94 [facility] Hematocrit Auto (Bld) [Volum e fraction]Ordered By: Carlos Cavazos on 05-30-2022 Hematocrit (Bld) [Volume fraction] 39.5 % 40-54 [facility] INR in Blood by Coagulation assayOrdered By: Carlos Cavazos on 05-30-2022 INR Coag (Bld) [Relative time] 1.9 {INR} [facility] - Chemistry and C hemistry - challengeOrdered By: Carlos Cavazos on 05-30-2022 CO2 [Moles/Vol] 27.0 mmol/L 21.0-32.0 [facility] Urea nitrogen/Creatinine [Mass ratio] 21.4 mg/mg 10-20 [facility] - CoagulationOrde red By: Carlos Cavazos on 05-30-2022 PT Coag (PPP) [Time] 21.6 s 11.7-14.9 [facility] Laboratory - Hematology and Cell countsOrdered By: Carlos Cavazos on 05-30-2022 Erythrocyte distribution width (RBC) [Entitic vol] 48.8 fL 35.1-43.9 [facility] Erythrocyte distribution width (RBC) [Ratio] 16.2 % 11.6-14.6 [facility] MCH (RBC) [Entitic mass] 25.3 pg 27.0-[facility].0 [facility] [Mass/Vol]Or dered By: Carlos Cavazos on 05-30-2022 MCHC (RBC) [Mass/Vol] 30.6 g/dL 32-36 [facility] No Panel InformationOrdered By: Carlos Cavazos on 05-30-2022 Estimated GFR (MDRD) Amer 133 mL/min >60 [facility] Comment on above: GFR Calc Estimated GFR (MDRD) Non-Af Amer 110 mL/min >60 [facility] Comment on above: Non- GFR Calc Platelets bldOrdered By: Ted Cavazos on 05-30-2022 Platelets (Bld) [#/Vol] 308 10*3/uL 150-450 [facility] Serum or plasma calcium oral urement (mass/volume)Ordered By: Carlos Cavazos on 05-30-2022 Calcium [Mass/Vol] 9.1 mg/dL 8.5-10.1 [facility] Serum or plasma creatinine m easurement (mass/volume)Ordered By: Carlos Cavazos on 05-30-2022 Creatinine [Mass/Vol] 0.75 mg/dL 0.70-1.30 [facility] Comment on above: The validity of the calculated GFR & GFRAA in patients over 70 years has not been determined. Clinical correlation is essential. Serum or plasma urea nitroge n measurement (mass/volume)Ordered By: Carlos Cavazos on 05-30-2022 Urea nitrogen [Mass/Vol] 16 mg/dL 7-18 [facility] Thin prep Papanicolaou smear with manual screeningOrdered By: Carlos Cavazos on 05-30-2022 Thin prep Papanicolaou smear with manual screening 8 5-15 [facility] - CoagulationOrde red By: Carlos Cavazos on 05-16-2022 INR Coag (Bld) [Relative time] 2.6 {INR} [facility] Comment on above: Critical Value > 4.0 Whole blood prothrombin time Ordered By: Carlos Cavazos on 05-16-2022 PT Coag (Bld) [Time] 29.9 s 11.7-14.[address] [facility] Laboratory - CoagulationOrde red By: Carlos Cavazos on 05-02-2022 INR Coag (Bld) [Relative time] 2.0 {INR} [facility] Comment on above: Critical Value > 4.0 Whole blood prothrombin time Ordered By: Carols Cavazos on 05-02-2022 PT Coag (Bld) [Time] 23.2 s 11.7-14.9 [facility] Laboratory - CoagulationOrde red By: Carlos Cavazos on 04-27-2022 INR Coag (Bld) [Relative time] 2.7 {INR} [facility] Comment on above: Critical Value > 4.0 Whole blood prothrombin time Ordered By: Carlos Cavazos on 04-27-2022 PT Coag (Bld) [Time] 31.1 s 11.7-14.9 [facility] Laboratory - CoagulationOrde red By: Carlos Cavazos on 04-26-2022 INR Coag (Bld) [Relative time] 2.8 {INR} [facility] Comment on above: Critical Value > 4.0 Whole blood prothrombin time Ordered By: Carlos Cavazos on 04-26-2022 PT Coag (Bld) [Time] 32.6 s 11.7-14.9 [facility] Laboratory - CoagulationOrde red By: Carlos Cavazos on 04-11-2022 INR Coag (Bld) [Relative time] 2.9 {INR} [facility] Comment on above: Critical Value > 4.0 Whole blood prothrombin time Ordered By: Carlos Cavazos on 04-11-2022 PT Coag (Bld) [Time] 32.8 s 11.7-14.9 [facility] Laboratory - CoagulationOrde red By: Carlos Cavazos on 03-28-2022 INR Coag (Bld) [Relative time] 2.1 {INR} [facility] Comment on above: Critical Value > 4.0 Whole blood prothrombin time Ordered By: Carlos Cavazos on 03-28-2022 PT Coag (Bld) [Time] 24.8 s 11.7-14.9 [facility] Laboratory - CoagulationOrde red By: Carlos Cavazos on 03-23-2022 INR Coag (Bld) [Relative time] 1.7 {INR} [facility] Comment on above: Critical Value > 4.0 Whole blood prothrombin time Ordered By: Carlos Cavazos on 03-23-2022 PT Coag (Bld) [Time] 20.9 s 11.7-14.9 [facility] Laboratory - CoagulationOrde red By: Carlos Cavazos on 03-16-2022 INR Coag (Bld) [Relative time] 1.7 {INR} [facility] Comment on above: Critical Value > 4.0 Whole blood prothrombin time Ordered By: Carlos Cavazos on 03-16-2022 PT Coag (Bld) [Time] 19.9 s 11.7-14.9 [facility] Laboratory - CoagulationOrde red By: Carlos Cavazos on 03-09-2022 INR Coag (Bld) [Relative time] 1.8 {INR} [facility] Comment on above: Critical Value > 4.0 Whole blood prothrombin time Ordered By: Carlos Cavazos on 03-09-2022 PT Coag (Bld) [Time] 21.9 s 11.7-14.9 [facility] Laboratory - CoagulationOrde red By: Carlos Cavazos on 03-06-2022 INR Coag (Bld) [Relative time] 1.7 {INR} [facility] Comment on above: Critical Value > 4.0 Whole blood prothrombin time Ordered By: Carlos Cavazos on 03-06-2022 PT Coag (Bld) [Time] 20.0 s 11.7-14.9 [facility] CBC with Auto Differentialon 03-02-2022 [...] - 10.7 10*3/uL [facility] Test Performed by [facility], [address] [place] [address] [facility] [address] HEAD WO CONTRASTon 2021 Patient Name: ANDREW SIFUENTES Computed Tomography ACCESSION EXAM DATE/TIME PROCEDURE ORDERING PROVIDER [id number] 03/02/2022 13:[address] Head or Brain w/o 300476 -LANETTE MUNGUIA Contrast CPT code 61420 Reason For Exam (CT Head or Brain [...] tubes (parent active on the left for LANDSCAPE SUPERVISOR shunting and disconnected on the right). 2. No definite evidence of acute infarction (MRI more sensitive), mass lesion, nor hemorrhage. Report Dictated on --- Final --- Dictated: 03/02/2022 1:35 pm Dictating Physician: MD GUTIERREZ WILLIAM Signed Date and Time: 03/02/2022 1:39 pm Signed by: MD GUTIERREZ WILLIAM Transcribed Date and Time: 03/02/2022 1:[address] [facility] Anant Gutierrez MD - 03/02/2022 Patient Name: [id number] Tomography ACCESSION EXAM DATE/TIME PROCEDURE ORDERING PROVIDER [id number] 03/02/2022 13:[address] Head or Brain w/o [id number] -EZRA LANETTE Contrast CPT code 11554 Reason For Exam (CT Head or Brain [...] tubes (parent active on the left for LANDSCAPE SUPERVISOR shunting and disconnected on the right). [...] Tomography ACCESSION EXAM DATE/TIME PROCEDURE ORDERING PROVIDER [id number] 03/02/2022 13:[address] Head or Brain w/o [id number] -LANETTE MUNGUIA Contrast CPT code 73823 Reason For Exam (CT Head or Brain [...] tubes (parent active on the left for LANDSCAPE SUPERVISOR shunting and disconnected on the right). [...] #### H TIERA PT, CMP3 ####[id number] [place], [place] ALP [Catalytic activity/Vol] 128 U/L High 38-126 [facility] Comment on above: Performed By: #### H TIERA PT, CMP3 ####[id number] [place], [place] ALT [Catalytic activity/Vol] 12 U/L Normal 0-49 [facility] Comment on above: Result Comment: The ALT test is performed by an updated assay method. Please note that the reference intervals have been changed and are now sex specific. Performed By: #### H EMDF PT, CMP3 ####[id number] [place], [place] Anion gap [Moles/Vol] 7 mmol/L Normal 3-13 [facility] Comment on above: Performed By: #### H EMDF PT, CMP3 ####[id number] [place], [place] AST [Catalytic activity/Vol] 24 U/L Normal 15-46 [facility] Comment on above: Performed By: #### H CHRISTEL MOTT, CMP3 ####[address] [place], [place] Bilirubin [Mass/Vol] 0.4 mg/dL Normal 0.2-1.3 [facility] Comment on above: Performed By: #### H CHRISTEL MOTT, CMP3 ####[address] [place], [place] CO2 [Moles/Vol] 27 mmol/L Normal 22-30 [facility] Comment on above: Performed By: #### H CHRISTEL MOTT CMP3 ####[address] [place], [place] Glucose [Mass/Vol] 109 mg/dL High 70-100 [facility] Comment on above: Performed By: #### H CHRISTEL MOTT, CMP3 ####[address] [place], [place] Protein [Mass/Vol] 8.1 g/dL Normal 6.3-8.2 [facility] Comment on above: Performed By: #### H CHRISTEL MOTT, CMP3 ####[address] [address] [place], [place] Urea nitrogen [Mass/Vol] 22 mg/dL High 7-17 [facility] Comment on above: Performed By: #### H CHRISTEL MOTT, CMP3 ####[address] [place], [place] Creatinine [Mass/Vol] 0.63 mg/dL Normal 0.52-1.25 [facility] Comment on above: Performed By: #### H CHRISTEL MOTT, CMP3 ####[address] [place], [place] eGFR OTHER > 90.0 Normal [...] #### H CHRISTEL MOTT CMP3 ####[address] [place] [address] GFR/1.73 sq M.predicted among blacks MDRD (S/P/Bld) [Vol rate/Area] mL/min/{1.73_m2} Normal >60 [facility] Comment on above: Performed By: #### H CHRISTEL MOTT CMP3 ####[address] [address] Albumin [Mass/Vol] 4.1 g/dL Normal 3.5-5.0 [facility] Comment on above: Performed By: #### H CHRISTEL MOTT CMP3 ####[address] [address] Chloride [Moles/Vol] 106 mmol/L Normal 98-107 [facility] Comment on above: Performed By: #### H CHRISTEL MOTT CMP3 ####[address] [address] Potassium [Moles/Vol] 3.7 mmol/L Normal 3.5-5.1 [facility] Comment on above: Performed By: #### H CHRISTEL MOTT CMP3 ####[address] [place] [address] Sodium [Moles/Vol] 140 mmol/L Normal 135-145 [facility] Comment on above: Performed By: #### H EMDF, PT, CMP3 ####[facility] [place] [address] Comprehensive Metabolic Pane [facility] 03-02-2022 Albumin [Mass/Vol] 4.1 g/dL 3.5 [...] P INF mL/min [facility] EGFR IF NonAfrican Faroese mL/min 60 - PINF mL/min [facility] Comment [...] - 17 mg/dL [facility] Test Performed by [facility], [address] [place] [id number] [facility] ED Provider Noteon 2 ED Provider Note [facility] EMERGENCY DEPARTMENT ENCOUNTER Pt Name: Andrew Sifuentes Birthdate 1950 Date of evaluation: 03/02/2022 Provider: Lanette Munguia DO CHIEF COMPLAINT Chief Complaint Patient presents with Fall Patient had unwitnessed fall at [facility] landed on butt. Is on thinners, denies LOC, denies head injury has no complaints at this time HISTORY OF PRESENT ILLNESS (Location/Symptom, Timing/Onset, Context/Setting, Quality, Duration, Modifying Factors, Severity) Note limiting factors. I wore a N-95 mask for the entirety of this encounter. Andrew Sifuentes is a 71 y.o. male medical history of hydrocephalus status post LANDSCAPE SUPERVISOR shunt, history of DVT on Coumadin who [facility]. Patient rolled out of bed. Unwitnessed. Found down on ground by nursing staff. Nonambulatory at baseline. Patient reports he did not hit his head. Has no acute complaints. Denies any pain or traumatic injury. Per nursing protocol at jail, sent to emergency department due to unwitnessed [...] Hemorrhoids Hydrocephalus, adult (HCC) Kidney stone Neuropathy LANDSCAPE SUPERVISOR (ventriculoperitoneal) shunt status SURGICAL HISTORY Past [...] Performed By: #### H EMDF PT, CMP3 ####[facility] [place] [address] Abs Neutrophile Cnt 10.7 10*3/uL High 1.8-7.0 [facility] Comment on above: Performed By: #### H EMDF, PT, CMP3 ####[facility] [place] [address] Basophils/100 WBC (Bld) 1.1 % Normal 0.0-2.0 [facility] Comment on above: Performed By: #### H EMDF, PT, CMP3 ####[facility] [place] [address] Eosinophils (Bld) [#/Vol] 0.1 10*3/uL Normal 0.0-0.5 [facility] Comment on above: Performed By: #### H EMDHeydi PT, CMP3 ####[address] [address] Eosinophils/100 WBC (Bld) 0.5 % Low 1.0-6.0 [facility] Comment on above: Performed By: #### H EMDF PT, CMP3 ####[address] [address] Granulocytes/100 WBC (Bld) 73.9 % Normal 40.0-80.0 [facility] Comment on above: Performed By: #### H TIERA PT, CMP3 ####[address] [address] Lymphocytes (Bld) [#/Vol] 3.0 10*3/uL Normal 1.0-4.3 [facility] Comment on above: Performed By: #### H TIERA PT, CMP3 ####[address] [address] Lymphocytes/100 WBC (Bld) 20.6 % Normal 20.0-40.0 [facility] Comment on above: Performed By: #### H EMDHeydi PT, CMP3 ####[address] [address] Monocytes (Bld) [#/Vol] 0.6 10*3/uL Normal 0.0-0.8 [facility] Comment on above: Performed By: #### H EMDF PT, CMP3 ####[address] [address] Monocytes/100 WBC (Bld) 3.9 % Normal 2.0-10.0 [facility] Comment on above: Performed By: #### H EMDF PT, CMP3 ####[address] [address] Platelet mean volume (Bld) [Entitic vol] 8.5 fL Normal 7.4-12.4 [facility] Comment on above: Result Comment: MPV is a calculated measurement using platelet volume ratio. Performed By: #### H EMDHeydi PT, CMP3 ####[address] Platelets (Bld) [#/Vol] 411 10*3/uL Normal 140-440 [facility] Comment on above: Performed By: #### H EMDHeydi PT, CMP3 ####[address] [place], [place] Erythrocyte distribution width (RBC) [Ratio] 17.0 % High 11.5-14.5 [facility] Comment on above: Performed By: #### H TIERA PT, CMP3 ####[address] Hematocrit (Bld) [Volume fraction] 37.4 % Low 40.0-52.0 [facility] Comment on above: Performed By: #### H TIERA PT, CMP3 ####[address] Hemoglobin (Bld) [Mass/Vol] 12.1 g/dL Low 13.0-18.0 [facility] Comment on above: Performed By: #### H TIERA PT, CMP3 ####[id number] [place], [place] MCH (RBC) [Entitic mass] 26.2 pg Normal 26.0-34.0 [facility] Comment on above: Performed By: #### H EMDHeydi PT, CMP3 ####[id number] [place], [place] MCHC 32.3 % Normal 32.0-36.0 [facility] Comment on above: Performed By: #### H TIERA PT, CMP3 ####[address] MCV (RBC) [Entitic vol] 81.1 fL Normal 80.0-98.0 [facility] Comment on above: Performed By: #### H EMDHeydi PT, CMP3 ####[address] RBC (Bld) [#/Vol] 4.61 10*6/uL Normal 4.40-5.90 [facility] Comment on above: Performed By: #### H BIMALF PT, CMP3 ####[address] [place], [place] WBC (Bld) [#/Vol] 14.5 10*3/uL High 3.6-10.7 [facility] Comment on above: Performed By: #### H BIMALF PT, CMP3 ####[id number] [place], [place] Prothrombin Timeon INR 1.9 High 0.9-1.1 [facility] [...] Performed By: #### H TIERA PT, CMP3 ####[address] PT Coag (PPP) [Time] 18.9 s High 9.0-12.0 [facility] Comment on above: Result Comment: . Performed By: #### H TIERA PT, CMP3 ####[id number] [place], [place] Protime-INRon 03-02-2022 INR Coag (Bld) [Relative time] 1.9 {INR} High [facility] Comment on above: Recommended Anticoag ulant [...] and review of laboratory results Abnormal [facility] PT Coag (PPP) [Time] 18.9 s High 9.0 - 12.0 s [facility] Comment on above: . Test Performed by [facility], [address] [place] [id number] [place] [address] [facility] Laboratory - CoagulationOrde red By: Carlos Cavazos on 02-20-2022 INR Coag (Bld) [Relative time] 2.6 {INR} [facility] Comment on above: Critical Value > 4.0 Whole blood prothrombin time Ordered By: Carlos Cavazos on 02-20-2022 PT Coag (Bld) [Time] 30.1 s 11.7-14.9 [facility] Laboratory - CoagulationOrde red By: Carlos Cavazos on 02-13-2022 INR Coag (Bld) [Relative time] 2.3 {INR} [facility] Comment on above: Critical Value > 4.0 Whole blood prothrombin time Ordered By: Carlos Cavazos on 02-13-2022 PT Coag (Bld) [Time] 26.7 s 11.7-14.9 [facility] Laboratory - CoagulationOrde red By: Carlos Cavazos on 02-06-2022 INR Coag (Bld) [Relative time] 2.3 {INR} [facility] Comment on above: Critical Value > 4.0 Whole blood prothrombin time Ordered By: Carlos Cavazos on 02-06-2022 PT Coag (Bld) [Time] 26.6 s 11.7-14.9 [facility] Laboratory - Coagulationon 0 01-30-2022 INR Coag (Bld) [Relative time] 1.7 {INR} [facility] Work Phone: Comment on above: Critical Value > 4.0 Whole blood prothrombin time on 01-30-2022 PT Coag (Bld) [Time] 20.1 s 11.7-14.9 [facility] Work Phone: Laboratory - Coagulationon 0 01-26-2022 INR Coag (Bld) [Relative time] 1.8 {INR} [facility] Work Phone: Comment on above: Critical Value > 4.0 Whole blood prothrombin time on 01-26-2022 PT Coag (Bld) [Time] 21.8 s 11.7-14.9 [facility] Work Phone: Laboratory - Coagulationon 0 01-19-2022 INR Coag (Bld) [Relative time] 2.2 {INR} [facility] Work Phone: Comment on above: Critical Value > 4.0 Whole blood prothrombin time on 01-19-2022 PT Coag (Bld) [Time] 25.7 s 11.7-14.9 [facility] Work Phone: INR in Blood by Coagulation assayon 01-10-2022 INR Coag (Bld) [Relative time] 1.8 {INR} [facility] Work Phone: Laboratory - Coagulationon 0 01-10-2022 PT Coag (PPP) [Time] 20.9 s 11.7-14.9 [facility] Work Phone: Basophil percentageon 2021 Chloride [Moles/Vol] 107 mmol/L 98-107 [facility] Work Phone: Glucose [Mass/Vol] 82 mg/dL 74-106 [facility] Work Phone: Potassium [Moles/Vol] 3.4 mmol/L 3.5-5.1 [facility] Work Phone: Sodium [Moles/Vol] 143 mmol/L 136-145 [facility] Work Phone: WBC (Bld) [#/Vol] 10.4 10*3/uL 4.4-11.0 [facility] Work Phone: Blood erythrocytes count (nu mber/volume)on 01-05-2022 RBC (Bld) [#/Vol] 4.27 10*6/uL 4.6-6.2 [facility] Work Phone: Blood hemoglobin measurement (mass/volume)on 01-05-2022 Hemoglobin (Bld) [Mass/Vol] 11.2 g/dL 13.0-16.5 [facility] Work Phone: Blood platelet mean volumeon 01-05-2022 Platelet mean volume (Bld) [Entitic vol] 10.3 fL 6.2-12.0 [facility] Work Phone: Determination of erythrocyte mean corpuscular volume (MCV)on 01-05-2022 MCV (RBC) [Entitic vol] 84.8 fL 80-94 [facility] Work Phone: Hematocrit Auto (Bld) [Volum e fraction]on 01-05-2022 Hematocrit (Bld) [Volume fraction] 36.2 % 40-54 [facility] Work Phone: Laboratory - Chemistry and C hemistry - challengeon 01-05-2022 CO2 [Moles/Vol] 28.0 mmol/L 21.0-32.0 [facility] Work Phone: Urea nitrogen/Creatinine [Mass ratio] 20.0 mg/mg 10-20 [facility] Work Phone: Laboratory - Hematology and Cell countson 01-05-2022 Erythrocyte distribution width (RBC) [Entitic vol] 51.8 fL 35.1-43.9 [facility] Work Phone: Erythrocyte distribution width (RBC) [Ratio] 16.8 % 11.6-14.6 [facility] Work Phone: MCH (RBC) [Entitic mass] 26.2 pg 27.0-32.0 [facility] Work Phone: MCHC Auto (RBC) [Mass/Vol]on 01-05-2022 MCHC (RBC) [Mass/Vol] 30.9 g/dL 32-36 [facility] Work Phone: No Panel Informationon 01-05 Estimated GFR (MDRD) Amer 133 mL/min >60 [facility] Work Phone: Comment on above: GFR Calc Estimated GFR (MDRD) Non-Af Amer 110 mL/min >60 [facility] Work Phone: Comment on above: Non- GFR Calc Platelets bldon 01-05-2022 Platelets (Bld) [#/Vol] 373 10*3/uL 150-450 [facility] Work Phone: Serum or plasma calcium oral urement (mass/volume)on 01-05-2022 Calcium [Mass/Vol] 8.8 mg/dL 8.5-10.1 [facility] Work Phone: Serum or plasma creatinine m easurement (mass/volume)on 01-05-2022 Creatinine [Mass/Vol] 0.75 mg/dL 0.70-1.30 [facility] Work Phone: Comment on above: The validity of the calculated GFR & GFRAA in patients over 70 years has not been determined. Clinical correlation is essential. Serum or plasma urea nitroge n measurement (mass/volume)on 01-05-2022 Urea nitrogen [Mass/Vol] 15 mg/dL 7-18 [facility] Work Phone: Thin prep Papanicolaou smear with manual screeningon 01-05-2022 Thin prep Papanicolaou smear with manual screening 8 5-15 [facility] Work Phone: Laboratory - Coagulationon 0 12-30-2021 INR Coag (Bld) [Relative time] 2.0 {INR} [facility] Work Phone: Comment on above: Critical Value > 4.0 Whole blood prothrombin time on 12-30-2021 PT Coag (Bld) [Time] 23.7 s 11.7-14.9 [facility] Work Phone: Basophil percentageon 2021 Chloride [Moles/Vol] 106 mmol/L 98-107 [facility] Work Phone: Glucose [Mass/Vol] 91 mg/dL 74-106 [facility] Work Phone: Potassium [Moles/Vol] 3.4 mmol/L 3.5-5.1 [facility] Work Phone: Sodium [Moles/Vol] 141 mmol/L 136-145 [facility] Work Phone: WBC (Bld) [#/Vol] 10.2 10*3/uL 4.4-11.0 [facility] Work Phone: Blood erythrocytes count (nu mber/volume)on 12-28-2021 RBC (Bld) [#/Vol] 4.22 10*6/uL 4.6-6.2 [facility] Work Phone: Blood hemoglobin measurement (mass/volume)on 12-28-2021 Hemoglobin (Bld) [Mass/Vol] 11.2 g/dL 13.0-16.5 [facility] Work Phone: Blood platelet mean volumeon 12-28-2021 Platelet mean volume (Bld) [Entitic vol] 10.1 fL 6.2-12.0 [facility] Work Phone: Determination of erythrocyte mean corpuscular volume (MCV)on 12-28-2021 MCV (RBC) [Entitic vol] 82.7 fL 80-94 [facility] Work Phone: Hematocrit Auto (Bld) [Volum e fraction]on 12-28-2021 Hematocrit (Bld) [Volume fraction] 34.9 % 40-54 [facility] Work Phone: Laboratory - Chemistry and C hemistry - challengeon 12-28-2021 CO2 [Moles/Vol] 30.0 mmol/L 21.0-32.0 [facility] Work Phone: [phone] Urea nitrogen/Creatinine [Mass ratio] 33.7 mg/mg 10-20 [facility] Work Phone: Laboratory - Hematology and Cell countson 12-28-2021 Erythrocyte distribution width (RBC) [Entitic vol] 49.1 fL 35.1-43.9 [facility] Work Phone: Erythrocyte distribution width (RBC) [Ratio] 16.5 % 11.6-14.6 [facility] Work Phone: MCH (RBC) [Entitic mass] 26.5 pg 27.0-32.0 [facility] Work Phone: MCHC Auto (RBC) [Mass/Vol]on 12-28-2021 MCHC (RBC) [Mass/Vol] 32.1 g/dL 32-36 [facility] Work Phone: No Panel Informationon 12-28 Estimated GFR (MDRD) Amer 174 mL/min >60 [facility] Work Phone: Comment on above: GFR Calc Estimated GFR (MDRD) Non-Af Amer 143 mL/min >60 [facility] Work Phone: Comment on above: Non- GFR Calc Platelets bldon 12-28-2021 Platelets (Bld) [#/Vol] 339 10*3/uL 150-450 [facility] Work Phone: Serum or plasma calcium oral urement (mass/volume)on 12-28-2021 Calcium [Mass/Vol] 8.6 mg/dL 8.5-10.1 [facility] Work Phone: Serum or plasma creatinine m easurement (mass/volume)on 12-28-2021 Creatinine [Mass/Vol] 0.59 mg/dL 0.70-1.30 [facility] Work Phone: Comment on above: The validity of the calculated GFR & GFRAA in patients over 70 years has not been determined. Clinical correlation is essential. Serum or plasma urea nitroge n measurement (mass/volume)on 12-28-2021 Urea nitrogen [Mass/Vol] 20 mg/dL 7-18 [facility] Work Phone: Thin prep Papanicolaou smear with manual screeningon 12-28-2021 Thin prep Papanicolaou smear with manual screening 5 5-15 [facility] Work Phone: CULTURE BLOODon 12-27-2021 Microscopic examination of blood, culture CULTURE BLOOD --> Status: F No growth at 5 days. Normal [facility] Comment on above: Performed By: #### C /BLD #### [facility] [address] [facility] [address] [place] [address] Laboratory - Coagulationon 0 12-26-2021 INR Coag (Bld) [Relative time] 1.7 {INR} [facility] Work Phone: Comment on above: Critical Value > 4.0 Whole blood prothrombin time on 12-26-2021 PT Coag (Bld) [Time] 20.8 s 11.7-14.9 [facility] Work Phone: Basic Metabolic Panelon 12-05 Calcium [Mass/Vol] 8.8 mg/dL Normal 8.4-10.4 [facility] Comment on above: Performed By: #### C RP2, ESR, HEMDF, BMP3 ####[facility] [place] [place] Anion gap [Moles/Vol] 6 mmol/L Normal 3-13 [facility] Comment on above: Performed By: #### C RP2, ESR, HEMDF, BMP3 ####[employer] [address] [place] [place] CO2 [Moles/Vol] 27 mmol/L Normal 22-30 [facility] Comment on above: Performed By: #### C RP2, ESR, HEMDF, BMP3 ####[facility] [address] [place] [place] Glucose [Mass/Vol] 100 mg/dL Normal 70-100 [facility] Comment on above: Performed By: #### C RP2, ESR, HEMDF, BMP3 ####[employer] [place] [place], [place] Urea nitrogen [Mass/Vol] 18 mg/dL High 7-17 [facility] Comment on above: Performed By: #### C RP2, ESR, HEMDF, BMP3 ####[employer] [place] [place] [address] Creatinine [Mass/Vol] 0.73 mg/dL Normal 0.52-1.25 [facility] Comment on above: Performed By: #### C RP2, ESR, HEMDF, BMP3 ####[facility] [id number] [place], [place] eGFR OTHER > 90.0 Normal [...] By: #### C RP2, ESR, HEMDF, BMP3 ####[facility] [address] [place], [place] GFR/1.73 sq M.predicted among blacks MDRD (S/P/Bld) [Vol rate/Area] mL/min/{1.73_m2} Normal >60 [facility] Comment on above: Performed By: #### C RP2, ESR, HEMDF, BMP3 ####[facility] [address] [place], [place] Potassium [Moles/Vol] 3.7 mmol/L Normal 3.5-5.1 [facility] Comment on above: Performed By: #### C RP2, ESR, HEMDF, BMP3 ####[facility] [id number] [place], [place] Chloride [Moles/Vol] 106 mmol/L Normal 98-107 [facility] Comment on above: Performed By: #### C RP2, ESR, HEMDF, BMP3 ####[facility] [place] [address] Sodium [Moles/Vol] 139 mmol/L Normal 135-145 [facility] Comment on above: Performed By: #### C RP2, ESR, HEMDF, BMP3 ####[facility] [place] [address] Anion gap [Moles/Vol] 6 mmol/L 3 - 13 mmol/L [facility] Calcium [Mass/Vol] 8.8 mg/dL 8.4 - 10. 4 mg/dL [facility] Chloride [Moles/Vol] 106 mmol/L 98 - 10 7 mmol/L [facility] CO2 [Moles/Vol] 27 mmol/L 22 - 30 mmol/L [facility] Creatinine [Mass/Vol] 0.73 mg/dL 0.52 - 1.25 mg/dL [facility] eGFR mL/min 60 - P INF mL/min [facility] EGFR IF NonAfrican Faroese mL/min 60 - PINF mL/min [facility] Comment on above: KDIGO guidelines pro [...] 2021 Basophil percentage 25-50 SEEN /hpf 0-5 [facility] Work Phone: [phone] Chloride [Moles/Vol] 106 mmol/L 98-[address] [facility] [address] [facility] Work Phone: Glucose [Mass/Vol] 93 mg/dL 74-106 [facility] Work Phone: Potassium [Moles/Vol] 3.5 mmol/L 3.5-5.1 [facility] Work Phone: Sodium [Moles/Vol] 140 mmol/L 136-145 [facility] Work Phone: WBC (Bld) [#/Vol] 9.6 10*3/uL 4.4-11.0 [facility] Work Phone: Bilirubin Test strip Ql (U)o n 12-22-2021 Bilirubin Ql (U) Negative Negative [facility] Work Phone: Blood erythrocytes count (nu mber/volume)on 12-22-2021 RBC (Bld) [#/Vol] 4.34 10*6/uL 4.6-6.2 [facility] Work Phone: Blood hemoglobin measurement (mass/volume)on 12-22-2021 Hemoglobin (Bld) [Mass/Vol] 11.5 g/dL 13.0-16.5 [facility] Work Phone: Blood platelet mean volumeon 12-22-2021 Platelet mean volume (Bld) [Entitic vol] 10.8 fL 6.2-12.0 [facility] Work Phone: C-Reactive Proteinon 022 CRP [Mass/Vol] 27.2 mg/L High 0.0-9.9 [employer] Comment on above: Result Comment: . Performed By: #### C RP2, ESR, HEMDF, BMP3 ####[employer] [id number] [place] [address] CRP [Mass/Vol] 27.2 mg/L High 0 - 9.9 mg/L [facility] [employer] Comment on above: . CBC with Auto [...] - 10.7 10*3/uL [facility] Test Performed by [facility], [address] [place] [id number] [facility] COVID-19, Flu A/B, and RSV C omboon 12-22-2021 Influenza A by PCR Not detected [facility] A Influenza B by PCR Not detected [facility] A RSV PCR Not Detected. Expected Result: Not Detected _ Method: Real-time, RT-PCR This assay was developed by [employer] and distributed under an Emergency Use Authorization (EUA) granted by the FDA for the qualitative detection of nucleic acids from SARS-CoV-2, Influenza A, Influenza B, and Respiratory Syncytial Virus. Provider and patient fact sheets can be found at https://www.fda.gov/media /571571/download and https://www.fda.gov/media /221810/download. [facility] SARS-CoV-2 (COVID-19) RNA MEGAN+probe Ql (Unsp spec) Not detected [facility] Test Performed by [address] [address] [facility] CR Foot Complete 3+ Views Le fton 12-22-2021 CR Foot Complete 3+ Views Left Patient Name: ANDREW SIFUENTES Diagnostic Radiology ACCESSION EXAM DATE/TIME PROCEDURE ORDERING PROVIDER [id number] 12/22/2021 00:09 EDT CR Foot Complete 3+ SANDY HIDALGO, TRAVIS Views Left CPT code 35691 Reason For Exam (CR Foot Complete 3+ [...] crystals LM Ql (Urine sed) 1+ /hpf [facility] Work Phone: Determination of erythrocyte mean corpuscular volume (MCV)on 12-22-2021 MCV (RBC) [Entitic vol] 84.3 fL 80-94 [facility] Work Phone: ED Provider Noteon 2 [...] leg for a while. According to EMS jail staff completed x-ray of the lower extremity and there was concern for osteomyelitis hence transferring patient to the hospital. Patient states this time the wounds on the left lower extremity for extended period of time. He denies fevers or chills. Patient states jail staff have been taking care of the wound for him. Focused exam: Blood pressure 108/67, pulse 77, temperature 97.9 ?F (36.6 ?C), temperature source Oral, resp. rate 16, height 5' 9" (1.753 m), weight 79.4 kg (175 lb), SpO2 96 %. [id number] in no acute distress. Alert and oriented [...] [employer] Sharon Olivia MD 12/22/21 0305 [facility] ED Provider Note [facility] EMERGENCY DEPT EMERGENCY DEPARTMENT ENCOUNTER Pt Name: Andrew Sifuentes Birthdate 1950 Date of evaluation: 12/21/2021 Provider: SANIA Lou CHIEF COMPLAINT Chief Complaint Patient presents with Osteomyelitis Patient from [facility], facility did xrays on left [...] Hemorrhoids Hydrocephalus, adult (HCC) Kidney stone Neuropathy [employer]PER[employer] (ventriculoperitoneal) shunt status SURGICAL HISTORY Past [...] use: No Sexual activity: Not Currently SCREENINGS [place] Coma Scale Eye Opening: Spontaneous Best Verbal Response: Confused Best Motor Response: Obeys commands [place] Coma Scale Score: 14 Patient symptoms are [...] soft. Tenderness: (more content not included)... Normal [facility] [place] Hematocrit Auto (Bld) [Volum e fraction]on 12-22-2021 Hematocrit (Bld) [Volume fraction] 36.6 % 40-54 [facility] Work Phone: Hemogram w/ Autodiffon 12-22 Abs Baso Cnt 0.1 10*3/uL Normal 0.0-0.2 [facility] [place] Comment on above: Performed By: #### C RP2, ESR, HEMDF, BMP3 ####[employer] [id number] [place] [address] Abs Neutrophile Cnt 5.9 10*3/uL Normal 1.8-7.0 [facility] Comment on above: Performed By: #### C RP2, ESR, HEMDF, BMP3 ####[address] [address] Basophils/100 WBC (Bld) 0.7 % Normal 0.0-2.0 [facility] Comment on above: Performed By: #### C RP2, ESR, HEMDF, BMP3 ####[address] [address] Eosinophils (Bld) [#/Vol] 0.2 10*3/uL Normal 0.0-0.5 [facility] Comment on above: Performed By: #### C RP2, ESR, HEMDF, BMP3 ####[address] [address] Eosinophils/100 WBC (Bld) 2.3 % Normal 1.0-6.0 [facility] Comment on above: Performed By: #### C RP2, ESR, HEMDF, BMP3 ####[address] Erythrocyte distribution width (RBC) [Ratio] 17.5 % High 11.5-14.5 [facility] Comment on above: Performed By: #### C RP2, ESR, HEMDF, BMP3 ####[address] [address] Granulocytes/100 WBC (Bld) 57.8 % Normal 40.0-80.0 [facility] Comment on above: Performed By: #### C RP2, ESR, HEMDF, BMP3 ####[address] [address] Hematocrit (Bld) [Volume fraction] 33.3 % Low 40.0-52.0 [facility] Comment on above: Performed By: #### C RP2, ESR, HEMDF, BMP3 ####[address] [address] Hemoglobin (Bld) [Mass/Vol] 11.0 g/dL Low 13.0-18.0 [facility] Comment on above: Performed By: #### C RP2, ESR, HEMDF, BMP3 ####[address] Lymphocytes (Bld) [#/Vol] 3.3 10*3/uL Normal 1.0-4.3 [facility] Comment on above: Performed By: #### C RP2, ESR, HEMDF, BMP3 ####[address] Lymphocytes/100 WBC (Bld) 33.0 % Normal 20.0-40.0 [facility] Comment on above: Performed By: #### C RP2, ESR, HEMDF, BMP3 ####[address] MCH (RBC) [Entitic mass] 26.5 pg Normal 26.0-34.0 [facility] Comment on above: Performed By: #### C RP2, ESR, HEMDF, BMP3 ####[address] MCHC 33.1 % Normal 32.0-36.0 [facility] Comment on above: Performed By: #### C RP2, ESR, HEMDF, BMP3 ####[address] MCV (RBC) [Entitic vol] 80.2 fL Normal 80.0-98.0 [facility] Comment on above: Performed By: #### C RP2, ESR, HEMDF, BMP3 ####[address] Monocytes (Bld) [#/Vol] 0.6 10*3/uL Normal 0.0-0.8 [facility] Comment on above: Performed By: #### C RP2, ESR, HEMDF, BMP3 ####[address] Monocytes/100 WBC (Bld) 6.2 % Normal 2.0-10.0 [facility] Comment on above: Performed By: #### C RP2, ESR, HEMDF, BMP3 ####[facility] [address] [place], [place] Platelet mean volume (Bld) [Entitic vol] 8.0 fL Normal 7.4-12.4 [facility] Comment on above: Result Comment: MPV is a calculated measurement using platelet volume ratio. Performed By: #### C RP2, ESR, HEMDF, BMP3 ####[facility] [id number] [place], [place] Platelets (Bld) [#/Vol] 368 10*3/uL Normal 140-440 [facility] Comment on above: Performed By: #### C RP2, ESR, HEMDF, BMP3 ####[facility] [id number] [place], [place] RBC (Bld) [#/Vol] 4.15 10*6/uL Low 4.40-5.90 [facility] Comment on above: Performed By: #### C RP2, ESR, HEMDF, BMP3 ####[facility] [id number] [place], [place] WBC (Bld) [#/Vol] 10.1 10*3/uL Normal 3.6-10.7 [facility] Comment on above: Performed By: #### C RP2, ESR, HEMDF, BMP3 ####[facility] [id number] [place], [place] Ketones Test strip Ql (U)on 12-22-2021 Ketones Ql (U) Negative Negative [facility] Work Phone: Laboratory - Chemistry and C hemistry - challengeon 12-22-2021 CO2 [Moles/Vol] 27.0 mmol/L 21.0-32.0 [facility] Work Phone: Urea nitrogen/Creatinine [Mass ratio] 22.5 mg/mg 10-20 [facility] Work Phone: Laboratory - Hematology and Cell countson 12-22-2021 Erythrocyte distribution width (RBC) [Entitic vol] 49.1 fL 35.1-43.9 [facility] Work Phone: Erythrocyte distribution width (RBC) [Ratio] 16.1 % 11.6-14.6 [facility] Work Phone: MCH (RBC) [Entitic mass] 26.5 pg 27.0-32.0 [facility] Work Phone: MCHC Auto (RBC) [Mass/Vol]on 12-22-2021 MCHC (RBC) [Mass/Vol] 31.4 g/dL 32-36 [facility] Work Phone: Mucus LM Ql (Urine sed)on Mucus Ql (Urine sed) 0 SEEN /hpf [facility] Work Phone: Nitrite Test strip Ql (U)on 12-22-2021 Nitrite Ql (U) Positive Negative [facility] Work Phone: No Panel Informationon 12-22 Estimated GFR (MDRD) Amer 152 mL/min >60 [facility] Work Phone: Comment on above: GFR Calc Estimated GFR (MDRD) Non-Af Amer 125 mL/min >60 [facility] Work Phone: Comment on above: Non- GFR Calc Interpretation and review of laboratory results Abnormal [facility] Test Performed by [facility], [address] [place] [id number] [place] [address] LAB [facility] Platelets bldon 12-22-2021 Platelets (Bld) [#/Vol] 317 10*3/uL 150-450 [facility] Work Phone: Protein Test strip Ql (U)on 12-22-2021 Protein Ql (U) 30 mg/dl Negative [facility] Work Phone: SARS-CoV-2, Flu A/B and RSVo n 12-22-2021 SARS-CoV-2 (COVID-19) RNA MEGAN+probe Ql (Unsp spec) SARS-CoV-2 --> Status: F Not Detected. Flu A PCR --> Status: F Not Detected. Flu B PCR --> Status: F Not Detected. RSV PCR --> Status: F Not Detected. Expected Result: Not Detected _ Method: Real-time, RT-PCR This assay was developed by [employer] and distributed under an Emergency Use Authorization (EUA) granted by the FDA for the qualitative detection of nucleic acids from SARS-CoV-2, Influenza A, Influenza B, and Respiratory Syncytial Virus. Provider and patient fact sheets can be found at https://www.fda.gov/media /822041/download and https://www.fda.gov/media /362460/download. Expected Result: Not Detected _ Method: Real-time, RT-PCR This assay was developed by [employer] and distributed under an Emergency Use Authorization (EUA) granted by the FDA for the qualitative detection of nucleic acids from SARS-CoV-2, Influenza A, Influenza B, and Respiratory Syncytial Virus. Provider and patient fact sheets can be found at https://www.fda.gov/media /621941/download and https://www.fda.gov/media /988058/download. Normal [facility] Comment on above: Performed By: #### C VFLR ####[facility] [place] [address], [id number] Sed Rateon 12-22-2021 Sed Rate 48 mm/h High 0-10 [facility] Comment on above: Performed By: #### C RP2, ESR, HEMDF, BMP3 ####[id number] [place] [address] Sedimentation Rateon 022 Interpretation and review of laboratory results Abnormal [facility] Sed Rate 48 mm/h High 0 - 10 mm/h [facility] Test Performed by [facility], [address] [place] [address] [facility] Serum or plasma calcium oral urement (mass/volume)on 12-22-2021 Calcium [Mass/Vol] 8.6 mg/dL 8.5-10.1 [facility] Work Phone: Serum or plasma creatinine m easurement (mass/volume)on 12-22-2021 Creatinine [Mass/Vol] 0.67 mg/dL 0.70-1.30 [facility] Work Phone: Comment on above: The validity of the calculated GFR & GFRAA in patients over 70 years has not been determined. Clinical correlation is essential. Serum or plasma urea nitroge n measurement (mass/volume)on 12-22-2021 Urea nitrogen [Mass/Vol] 15 mg/dL -18 [facility] Work Phone: Squamous epithelial cells de tection in urine sediment by light microscopyon 12-22-2021 Epithelial cells.squamous LM Ql (Urine sed) 0-5 SEEN /hpf 0-5 [facility] Work Phone: Thin prep Papanicolaou smear with manual screeningon 12-22-2021 Thin prep Papanicolaou smear with manual screening 7 5-15 [facility] Work Phone: Urine blood detectionon 12-05 RBC Ql (U) 150 /ul Negative [facility] Work Phone: RBC Ql (U) 10-25 SEEN /hpf 0-5 [facility] Work Phone: Urine clarityon 12-22-2021 Clarity (U) Sl. Cloudy Clear [facility] Work Phone: Urine color determinationon 12-22-2021 Color (U) Yellow Yellow [facility] Work Phone: Urine glucose detectionon Glucose Ql (U) Normal mg/dl Normal [facility] Work Phone: Urine leukocyte esterase det ection by dipstickon 12-22-2021 Leukocyte esterase Test strip Ql (U) 500 /ul Negative [facility] Work Phone: Urine pHon 12-22-2021 pH (U) 6.0 [pH] 5.0 - 8.0 [facility] Work Phone: Urine sediment bacteria coun t by microscopy (number/high power field)on 12-22-2021 Bacteria LM.HPF (Urine sed) [#/Area] 2 /[HPF] None Seen [facility] Work Phone: Urine specific gravity measu rementon 12-22-2021 Specific gravity (U) [Rel density] 1.020 1.002-1.030 [facility] Work Phone: Urobilinogen Auto test strip Ql (U)on 12-22-2021 Urobilinogen Ql (U) Normal mg/dl Normal [facility] Work Phone: XR FOOT LEFT (MIN 3 VIEWS)on 12-22-2021 Patient Name: ANDREW SIFUENTES Diagnostic Radiology ACCESSION EXAM DATE/TIME PROCEDURE ORDERING PROVIDER [id number] 12/22/2021 00:09 EDT CR Foot Complete 3+ SANDY HIDALGO, TRAVIS Views Left CPT code 09010 Reason For Exam (CR Foot Complete 3+ [...] and Time: 12/22/2021 0:[address] [facility] Albert Solaon MD - 12/22/2021 Patient Name: ANDREW SIFUENTES Diagnostic Radiology ACCESSION EXAM DATE/TIME PROCEDURE ORDERING PROVIDER [id number] 12/22/2021 00:09 EDT CR Foot Complete 3+ SANDY HIDALGO, TRAVIS Views Left CPT code 90693 Reason For Exam (CR Foot Complete 3+ [...] JEFFREY Transcribed Date and Time: 12/22/2021 0:21 [facility] Work Phone: Radiology Study observation (narrative) [facility] Work Phone: XR FOOT LEFT (MIN 3 VIEWS)Or dered By: Albert Solano on 12-22-2021 [facility] Work Phone: Basophil percentageon 2021 Chloride [Moles/Vol] 103 mmol/L 98-[address] [facility] Work Phone: [phone] Glucose [Mass/Vol] 92 mg/dL 74-106 [place] [...] (Bld) [#/Vol] 4.50 10*6/uL 4.6-6.2 [facility] Work Phone: Blood hemoglobin measurement (mass/volume)on 12-19-2021 Hemoglobin (Bld) [Mass/Vol] 12.2 g/dL 13.0-16.5 [facility] Work Phone: Blood platelet mean volumeon 12-19-2021 Platelet mean volume (Bld) [Entitic vol] 11.3 fL 6.2-12.0 [facility] Work Phone: Determination of erythrocyte mean corpuscular volume (MCV)on 12-19-2021 MCV (RBC) [Entitic vol] 85.6 fL 80-94 [facility] Work Phone: Hematocrit Auto (Bld) [Volum e fraction]on 12-19-2021 Hematocrit (Bld) [Volume fraction] 38.5 % 40-54 [facility] Work Phone: Laboratory - Chemistry and C hemistry - challengeon 12-19-2021 CO2 [Moles/Vol] 30.0 mmol/L 21.0-32.0 [facility] Work Phone: Urea nitrogen/Creatinine [Mass ratio] 27.1 mg/mg 10-20 [facility] Work Phone: Laboratory - Hematology and Cell countson 12-19-2021 Erythrocyte distribution width (RBC) [Entitic vol] 50.5 fL 35.1-43.9 [facility] Work Phone: Erythrocyte distribution width (RBC) [Ratio] 16.0 % 11.6-14.6 [facility] Work Phone: MCH (RBC) [Entitic mass] 27.1 pg 27.0-32.0 [facility] Work Phone: MCHC Auto (RBC) [Mass/Vol]on 12-19-2021 MCHC (RBC) [Mass/Vol] 31.7 g/dL 32-36 [facility] Work Phone: No Panel Informationon 12-19 Estimated GFR (MDRD) Amer 153 mL/min >60 [facility] Work Phone: Comment on above: GFR Calc Estimated GFR (MDRD) Non-Af Amer 126 mL/min >60 [facility] Work Phone: Comment on above: Non- GFR Calc Platelets bldon 12-19-2021 Platelets (Bld) [#/Vol] 363 10*3/uL 150-450 [facility] Work Phone: Serum or plasma calcium oral urement (mass/volume)on 12-19-2021 Calcium [Mass/Vol] 9.5 mg/dL 8.5-10.1 [facility] Work Phone: Serum or plasma creatinine m easurement (mass/volume)on 12-19-2021 Creatinine [Mass/Vol] 0.66 mg/dL 0.70-1.30 [facility] Work Phone: Comment on above: The validity of the calculated GFR & GFRAA in patients over 70 years has not been determined. Clinical correlation is essential. Serum or plasma urea nitroge n measurement (mass/volume)on 12-19-2021 Urea nitrogen [Mass/Vol] 18 mg/dL 7-18 [facility] Work Phone: Thin prep Papanicolaou smear with manual screeningon 12-19-2021 Thin prep Papanicolaou smear with manual screening 5 5-15 [facility] Work Phone: Laboratory - Coagulationon 0 12-12-2021 INR Coag (Bld) [Relative time] 2.0 {INR} [facility] Work Phone: Comment on above: Critical Value > 4.0 Whole blood prothrombin time on 12-12-2021 PT Coag (Bld) [Time] 23.9 s 11.7-14.9 [facility] Work Phone: ANES POSTPROC EVALon [address] Normal [facility] Laboratory - Coagulationon 0 12-08-2021 INR Coag (Bld) [Relative time] 1.8 {INR} [facility] Work Phone: Comment on above: Critical Value > 4.0 Whole blood prothrombin time on 12-08-2021 PT Coag (Bld) [Time] 21.0 s 11.7-14.9 [facility] Work Phone: Absolute lymphocyte counton 12-05-2021 Lymphocytes Auto (Unsp spec) [#/Vol] 2.97 10*3/uL 0.83-4.51 [facility] Work Phone: Basophil percentageon 2021 Basophils/100 WBC (Bld) 0.6 % 0-1 [facility] Work Phone: Chloride [Moles/Vol] 106 mmol/L 98-107 [facility] Work Phone: Eosinophils/100 WBC (Bld) 2.3 % 0-5 [facility] Work Phone: Glucose [Mass/Vol] 107 mg/dL 74-106 [facility] Work Phone: Comment on above: Fasting Glucose resu lt from 100 to 125 mg/dL suggests IMPAIRED HOMEOSTASIS per A.D.A. criteria. Neutrophils (Bld) [#/Vol] 5.6 10*3/uL 2.0-7.7 [facility] Work Phone: [phone] Neutrophils/100 WBC (Bld) 60.2 % 47-70 [facility] Work Phone: Potassium [Moles/Vol] 3.4 mmol/L 3.5-5.1 [facility] Work Phone: Sodium [Moles/Vol] 139 mmol/L 136-145 [facility] Work Phone: [phone] WBC (Bld) [#/Vol] 9.3 10*3/uL 4.4-11.0 [facility] Work Phone: Blood erythrocytes count (nu mber/volume)on 12-05-2021 RBC (Bld) [#/Vol] 4.49 10*6/uL 4.6-6.2 [facility] Work Phone: Blood hemoglobin measurement (mass/volume)on 12-05-2021 Hemoglobin (Bld) [Mass/Vol] 12.1 g/dL 13.0-16.5 [facility] Work Phone: Blood lymphocytes/100 leukoc yteson 12-05-2021 Lymphocytes/100 WBC (Bld) 32.0 % 19-41 [facility] Work Phone: Blood monocytes/100 leukocyt eson 12-05-2021 Monocytes/100 WBC (Bld) 4.7 % 0-10 [facility] Work Phone: Blood platelet mean volumeon 12-05-2021 Platelet mean volume (Bld) [Entitic vol] 10.8 fL 6.2-12.0 [facility] Work Phone: Determination of erythrocyte mean corpuscular volume (MCV)on 12-05-2021 MCV (RBC) [Entitic vol] 84.9 fL 80-94 [facility] Work Phone: Hematocrit Auto (Bld) [Volum e fraction]on 12-05-2021 Hematocrit (Bld) [Volume fraction] 38.1 % 40-54 [facility] Work Phone: INR in Blood by Coagulation assayon 12-05-2021 INR Coag (Bld) [Relative time] 1.8 {INR} [facility] Work Phone: Laboratory - Chemistry and C hemistry - challengeon 12-05-2021 CO2 [Moles/Vol] 29.0 mmol/L 21.0-32.0 [facility] Work Phone: Urea nitrogen/Creatinine [Mass ratio] 25.4 mg/mg 10-20 [facility] Work Phone: Laboratory - Coagulationon 0 12-05-2021 PT Coag (PPP) [Time] 20.5 s 11.7-14.9 [facility] Work Phone: Laboratory - Hematology and Cell countson 12-05-2021 Erythrocyte distribution width (RBC) [Entitic vol] 48.5 fL 35.1-43.9 [facility] Work Phone: Erythrocyte distribution width (RBC) [Ratio] 15.7 % 11.6-14.6 [facility] Work Phone: Immature granulocytes/100 WBC (Bld) 0.200 % 0.0-0.9 [facility] Work Phone: Comment on above: IG% - Immature Granu locytes (promyelocytes, myelocytes and metamyelocytes) > 1% indicates that a LEFT SHIFT is Present. MCH (RBC) [Entitic mass] 26.9 pg 27.0-32.0 [facility] Work Phone: Nucleated RBC/100 WBC (Bld) [Ratio] 0 % 0-5 [facility] Work Phone: MCHC Auto (RBC) [Mass/Vol]on 12-05-2021 MCHC (RBC) [Mass/Vol] 31.8 g/dL 32-36 [facility] Work Phone: No Panel Informationon 12-05 Estimated GFR (MDRD) Amer 133 mL/min >60 [facility] Work Phone: Comment on above: GFR Calc Estimated GFR (MDRD) Non-Af Amer 110 mL/min >60 [facility] Work Phone: Comment on above: Non- GFR Calc Platelets bldon 12-05-2021 Platelets (Bld) [#/Vol] 363 10*3/uL 150-450 [facility] Work Phone: Serum or plasma calcium oral urement (mass/volume)on 12-05-2021 Calcium [Mass/Vol] 9.4 mg/dL 8.5-10.1 [facility] Work Phone: Serum or plasma creatinine m easurement (mass/volume)on 12-05-2021 Creatinine [Mass/Vol] 0.75 mg/dL 0.70-1.30 [facility] Work Phone: Comment on above: The validity of the calculated GFR & GFRAA in patients over 70 years has not been determined. Clinical correlation is essential. Serum or plasma urea nitroge n measurement (mass/volume)on 12-05-2021 Urea nitrogen [Mass/Vol] 19 mg/dL 7-18 [facility] Work Phone: Thin prep Papanicolaou smear with manual screeningon 12-05-2021 Thin prep Papanicolaou smear with manual screening 4 5-15 [facility] Work Phone: Basophil percentageon 2021 Basophil percentage 0 SEEN /hpf 0-5 [facility] Work Phone: Chloride [Moles/Vol] 104 mmol/L 98-107 [facility] Work Phone: Glucose [Mass/Vol] 90 mg/dL 74-106 [facility] Work Phone: Potassium [Moles/Vol] 3.7 mmol/L 3.5-5.1 [facility] Work Phone: Comment on above: Slight Hemolysis, Re sult may be falsely increased. Sodium [Moles/Vol] 138 mmol/L 136-145 [facility] Work Phone: WBC (Bld) [#/Vol] 10.7 10*3/uL 4.4-11.0 [facility] Work Phone: Bilirubin Test strip Ql (U)o n 12-01-2021 Bilirubin Ql (U) Negative Negative [facility] Work Phone: Blood erythrocytes count (nu mber/volume)on 12-01-2021 RBC (Bld) [#/Vol] 4.33 10*6/uL 4.6-6.2 [facility] Work Phone: Blood hemoglobin measurement (mass/volume)on 12-01-2021 Hemoglobin (Bld) [Mass/Vol] 11.6 g/dL 13.0-16.5 [facility] Work Phone: Blood platelet mean volumeon 12-01-2021 Platelet mean volume (Bld) [Entitic vol] 11.2 fL 6.2-12.0 [facility] Work Phone: Determination of erythrocyte mean corpuscular volume (MCV)on 12-01-2021 MCV (RBC) [Entitic vol] 85.2 fL 80-94 [facility] Work Phone: Hematocrit Auto (Bld) [Volum e fraction]on 12-01-2021 Hematocrit (Bld) [Volume fraction] 36.9 % 40-54 [facility] Work Phone: Ketones Test strip Ql (U)on 12-01-2021 Ketones Ql (U) Negative Negative [facility] Work Phone: Laboratory - Chemistry and C hemistry - challengeon 12-01-2021 CO2 [Moles/Vol] 27.0 mmol/L 21.0-32.0 [facility] Work Phone: Urea nitrogen/Creatinine [Mass ratio] 24.0 mg/mg 10-20 [facility] Work Phone: Laboratory - Coagulationon 0 12-01-2021 INR Coag (Bld) [Relative time] 1.6 {INR} [facility] Work Phone: Comment on above: Critical Value > 4.0 Laboratory - Hematology and Cell countson 12-01-2021 Erythrocyte distribution width (RBC) [Entitic vol] 47.9 fL 35.1-43.9 [facility] Work Phone: Erythrocyte distribution width (RBC) [Ratio] 15.5 % 11.6-14.6 [facility] Work Phone: MCH (RBC) [Entitic mass] 26.8 pg 27.0-32.0 [facility] Work Phone: MCHC Auto (RBC) [Mass/Vol]on 12-01-2021 MCHC (RBC) [Mass/Vol] 31.4 g/dL 32-36 [facility] Work Phone: Mucus LM Ql (Urine sed)on Mucus Ql (Urine sed) 0 SEEN /hpf [facility] Work Phone: Nitrite Test strip Ql (U)on 12-01-2021 Nitrite Ql (U) Negative Negative [facility] Work Phone: No Panel Informationon 12-01 Estimated GFR (MDRD) Amer 133 mL/min >60 [facility] Work Phone: Comment on above: GFR Calc Estimated GFR (MDRD) Non-Af Amer 110 mL/min >60 [facility] Work Phone: Comment on above: Non- GFR Calc Platelets bldon 12-01-2021 Platelets (Bld) [#/Vol] 336 10*3/uL 150-450 [facility] Work Phone: Protein Test strip Ql (U)on 12-01-2021 Protein Ql (U) 30 mg/dl Negative [facility] Work Phone: Serum or plasma calcium oral urement (mass/volume)on 12-01-2021 Calcium [Mass/Vol] 9.4 mg/dL 8.5-10.1 [facility] Work Phone: Serum or plasma creatinine m easurement (mass/volume)on 12-01-2021 Creatinine [Mass/Vol] 0.75 mg/dL 0.70-1.30 [facility] Work Phone: Comment on above: The validity of the calculated GFR & GFRAA in patients over 70 years has not been determined. Clinical correlation is essential. Serum or plasma urea nitroge n measurement (mass/volume)on 12-01-2021 Urea nitrogen [Mass/Vol] 18 mg/dL 7-18 [facility] Work Phone: Squamous epithelial cells de tection in urine sediment by light microscopyon 12-01-2021 Epithelial cells.squamous LM Ql (Urine sed) 0-5 SEEN /hpf 0-5 [facility] Work Phone: Thin prep Papanicolaou smear with manual screeningon 12-01-2021 Thin prep Papanicolaou smear with manual screening 7 5-15 [facility] Work Phone: Urine blood detectionon 11-05 RBC Ql (U) Negative Negative [facility] Work Phone: RBC Ql (U) 0 SEEN /hpf 0-5 [facility] Work Phone: Urine clarityon 12-01-2021 Clarity (U) Clear Clear [facility] Work Phone: Urine color determinationon 12-01-2021 Color (U) Yellow Yellow [facility] Work Phone: Urine glucose detectionon Glucose Ql (U) 50 mg/dl Normal [facility] Work Phone: Urine leukocyte esterase det ection by dipstickon 12-01-2021 Leukocyte esterase Test strip Ql (U) Negative Negative [facility] Work Phone: Urine pHon 12-01-2021 pH (U) 6.0 [pH] 5.0 - 8.0 [facility] Work Phone: Urine sediment bacteria coun t by microscopy (number/high power field)on 12-01-2021 Bacteria LM.HPF (Urine sed) [#/Area] 0 /[HPF] None Seen [facility] Work Phone: Urine sediment yeast count b y microscopy (number/high powered field)on 12-01-2021 Yeast LM.HPF (Urine sed) [#/Area] 2 /[HPF] None Seen [facility] Work Phone: Urine specific gravity measu rementon 12-01-2021 Specific gravity (U) [Rel density] 1.010 1.002-1.030 [facility] Work Phone: Urobilinogen Auto test strip Ql (U)on 12-01-2021 Urobilinogen Ql (U) Normal mg/dl Normal [facility] Work Phone: Whole blood prothrombin time on 12-01-2021 PT Coag (Bld) [Time] 19.8 s 11.7-14.9 [facility] Work Phone: Laboratory - Coagulationon 0 11-28-2021 INR Coag (Bld) [Relative time] 1.6 {INR} [facility] Work Phone: Comment on above: Critical Value > 4.0 Whole blood prothrombin time on 11-28-2021 PT Coag (Bld) [Time] 18.8 s 11.7-14.9 [facility] Work Phone: INR in Blood by Coagulation assayon 11-23-2021 INR Coag (Bld) [Relative time] 2.7 {INR} [facility] Work Phone: Laboratory - Coagulationon 0 11-23-2021 PT Coag (PPP) [Time] 28.0 s 11.7-14.9 [facility] Work Phone: Laboratory - Coagulationon 0 11-22-2021 INR Coag (Bld) [Relative time] 3.8 {INR} [facility] Work Phone: Comment on above: Critical Value > 4.0 Whole blood prothrombin time on 11-22-2021 PT Coag (Bld) [Time] 42.8 s 11.7-14.9 [facility] Work Phone: INR in Blood by Coagulation assayon 11-21-2021 INR Coag (Bld) [Relative time] 3.9 {INR} [facility] Work Phone: Laboratory - Coagulationon 0 11-21-2021 PT Coag (PPP) [Time] 37.7 s 11.7-14.9 [facility] Work Phone: Whole blood prothrombin time on 11-21-2021 PT Coag (Bld) [Time] 45.5 s 11.7-14.9 [facility] Work Phone: INR in Blood by Coagulation assayon 11-14-2021 INR Coag (Bld) [Relative time] 3.1 {INR} [facility] Work Phone: Laboratory - Coagulationon 0 11-14-2021 PT Coag (PPP) [Time] 31.4 s 11.7-14.9 [facility] Work Phone: Laboratory - Coagulationon 0 11-08-2021 INR Coag (Bld) [Relative time] 2.5 {INR} [facility] Work Phone: Comment on above: Critical Value > 4.0 Whole blood prothrombin time on 11-08-2021 PT Coag (Bld) [Time] 29.0 s 11.7-14.9 [facility] Work Phone: Basophil percentageon 2021 Chloride [Moles/Vol] 106 mmol/L 98-107 [facility] Work Phone: Glucose [Mass/Vol] 100 mg/dL 74-106 [facility] Work Phone: Comment on above: Fasting Glucose resu lt from 100 to 125 mg/dL suggests IMPAIRED HOMEOSTASIS per A.D.A. criteria. Potassium [Moles/Vol] 3.7 mmol/L 3.5-5.1 [facility] Work Phone: Sodium [Moles/Vol] 140 mmol/L 136-145 [facility] Work Phone: WBC (Bld) [#/Vol] 8.8 10*3/uL 4.4-11.0 [facility] Work Phone: Blood erythrocytes count (nu mber/volume)on 11-04-2021 RBC (Bld) [#/Vol] 4.05 10*6/uL 4.6-6.2 [facility] Work Phone: Blood hemoglobin measurement (mass/volume)on 11-04-2021 Hemoglobin (Bld) [Mass/Vol] 11.1 g/dL 13.0-16.5 [facility] Work Phone: Blood platelet mean volumeon 11-04-2021 Platelet mean volume (Bld) [Entitic vol] 10.8 fL 6.2-12.0 [facility] Work Phone: Determination of erythrocyte mean corpuscular volume (MCV)on 11-04-2021 MCV (RBC) [Entitic vol] 86.9 fL 80-94 [facility] Work Phone: Hematocrit Auto (Bld) [Volum e fraction]on 11-04-2021 Hematocrit (Bld) [Volume fraction] 35.2 % 40-54 [facility] Work Phone: INR in Blood by Coagulation assayon 11-04-2021 INR Coag (Bld) [Relative time] 1.8 {INR} [facility] Work Phone: Laboratory - Chemistry and C hemistry - challengeon 11-04-2021 CO2 [Moles/Vol] 26.0 mmol/L 21.0-32.0 [facility] Work Phone: Urea nitrogen/Creatinine [Mass ratio] 18.3 mg/mg 10-20 [facility] Work Phone: Laboratory - Coagulationon 0 11-04-2021 PT Coag (PPP) [Time] 20.4 s 11.7-14.9 [facility] Work Phone: Laboratory - Hematology and Cell countson 11-04-2021 Erythrocyte distribution width (RBC) [Entitic vol] 48.1 fL 35.1-43.9 [facility] Work Phone: Erythrocyte distribution width (RBC) [Ratio] 15.0 % 11.6-14.6 [facility] Work Phone: MCH (RBC) [Entitic mass] 27.4 pg 27.0-32.0 [facility] Work Phone: MCHC Auto (RBC) [Mass/Vol]on 11-04-2021 MCHC (RBC) [Mass/Vol] 31.5 g/dL 32-36 [facility] Work Phone: No Panel Informationon 11-04 D-Dimer Quantitative (PE/DVT) 0.56 FEU/ug/m 0.27-0.49 [facility] Work Phone: Comment on above: D-Dimer ELEVATED (>0 .49): Additional studies and clinicalassessments are indicated to conclude diagnosis of:Deep Vein Thrombosis (DVT) or Pulmonary Embolism (PE) Estimated GFR (MDRD) Amer 155 mL/min >60 [facility] Work Phone: Comment on above: GFR Calc Estimated GFR (MDRD) Non-Af Amer 128 mL/min >60 [facility] Work Phone: Comment on above: Non- GFR Calc Troponin I High Sensitivity 11 pg/mL 3.0-78.0 [facility] Work Phone: Comment on above: Please Note: New Fadumo t Units and Gender Specific Reference Ranges. For more information see Policy Stat Procedure [place] High Sensitivity Troponin (TNIH) and attachments. Platelets bldon 11-04-2021 Platelets (Bld) [#/Vol] 364 10*3/uL 150-450 [facility] Work Phone: Serum or plasma C reactive p rotein measurement (mass/volume)on 11-04-2021 CRP [Mass/Vol] 31.90 mg/L 0.0-3.0 [facility] Work Phone: Comment on above: C-Reactive Protein ( CRP) provides useful information for thediagnosis, therapy and monitoring of inflammatory processesand associated diseases. For the evaluation of Relative Riskfor Cardiovascular Disease, a High Sensitivity CRP (HSCRP)should be ordered. Serum or plasma calcium oral urement (mass/volume)on 11-04-2021 Calcium [Mass/Vol] 9.1 mg/dL 8.5-10.1 [facility] Work Phone: Serum or plasma creatinine m easurement (mass/volume)on 11-04-2021 Creatinine [Mass/Vol] 0.66 mg/dL 0.70-1.30 [facility] Work Phone: Comment on above: The validity of the calculated GFR & GFRAA in patients over 70 years has not been determined. Clinical correlation is essential. Serum or plasma urea nitroge n measurement (mass/volume)on 11-04-2021 Urea nitrogen [Mass/Vol] 12 mg/dL 7-18 [facility] Work Phone: Thin prep Papanicolaou smear with manual screeningon 11-04-2021 Thin prep Papanicolaou smear with manual screening 8 5-15 [facility] Work Phone: Complete Urinalysison 2021 Appearance (U) Clear Normal Clear [facility] [place] Comment on above: Result Comment: . Performed By: #### C UA2 ####[employer] [place] [place], [place] Bacteria Moderate Abnormal Negative [facility] [place] Comment on above: Result Comment: . Performed By: #### C UA2 ####[facility] [employer] [id number] [place], [place] Bilirubin,Urine Negative Normal Negative [facility] [place] Comment on above: Result Comment: . Performed By: #### C UA2 ####[employer] [place] [place], [place] Cast, Hyaline Negative Normal Negative [facility] [place] Comment on above: Result Comment: . Performed By: #### C UA2 ####[employer] [place] [place], [place] Color (U) Yellow Normal Lt. Yellow [facility] [place] Comment on above: Result Comment: . Performed By: #### C UA2 ####[email or web address] [id number] [place], [place] Glucose Ql (U) Normal Normal Normal (<70) [facility] [place] Comment on above: Result Comment: . Performed By: #### C UA2 ####[employer] [place] [place], [place] Ketone,Urine Negative Normal Negative [facility] [place] Comment on above: Result Comment: . Performed By: #### C UA2 ####[facility] [id number] [place], [place] Leukocytes,Urine Negative Normal Negative [facility] Comment on above: Result Comment: . Performed By: #### C UA2 ####[place] [id number] [place], [place] Mucous Threads Few Normal Negative [facility] Comment on above: Result Comment: . Performed By: #### C UA2 ####[place] [id number] [place], [place] Nitrites,Urine Negative Normal Negative [facility] Comment on above: Result Comment: . Performed By: #### C UA2 ####[place] [id number] [place], [place] Occult Blood,Urine 0.1 mg/dL Abnormal Negative [facility] Comment on above: Result Comment: . Performed By: #### C UA2 ####[address] [place], [place] pH,Urine 5.5 Normal 5.0-8.0 [facility] Comment on above: Result Comment: . Performed By: #### C UA2 ####[address] [place], [place] Protein (U) [Mass/Vol] 10 mg/dL Abnormal Negative [facility] Comment on above: Result Comment: . Performed By: #### C UA2 ####[address] [place], [place] RBC, Urine 26 - 50 Abnormal 0-2 [facility] Comment on above: Result Comment: . Performed By: #### C UA2 ####[address] [place], [place] Specific Frost,Urine 1.023 Normal 1.005 - 1.030 [facility] Comment on above: Result Comment: . Performed By: #### C UA2 ####[address] [place], [place] Squamous Epithelial Negative Normal 3-5 [facility] Comment on above: Result Comment: . Performed By: #### C UA2 ####[address] [place], [place] Urobilinogen,Urine Normal Normal Normal (0-1) [facility] Comment on above: Result Comment: . Performed By: #### C UA2 ####[facility] [place] [id number] WBC, Urine 0 - 2 Normal 0-5 [facility] [facility] Comment on above: Result Comment: . Performed By: #### C UA2 ####[facility] [place] [address] Urinalysison 11-01-2021 Appearance (U) Clear Clear NA [...] [Mass/Vol] 10 mg/dL Abnormal Negative [facility] Comment on above: . RBC, UA 26-50 Abnormal 0 - 2 /[HPF] [facility] Comment on above: . Specific Frost, Urine 1.023 [facility] Comment on above: . Squam Epithel, UA Negative 3 - 5 /[HPF] [facility] Comment on above: . Urobilinogen, Urine Normal Normal ( 0-1) mg/dL [facility] Comment on above: . WBC, UA 0-2 0 - 5 /[HPF] [facility] Comment on above: . Test Performed by [facility], [address] [place] [address] [facility] Basic Metabolic Panelon 10-06 Anion gap [Moles/Vol] 6 mmol/L Normal 3-13 [facility] Comment on above: Performed By: #### P T/AP, TROPN, BMP3, HEMDF #### [facility] [address] [place], [place] Calcium [Mass/Vol] 9.1 mg/dL Normal 8.4-10.4 [facility] Comment on above: Performed By: #### P T/AP, TROPN, BMP3, HEMDF #### [facility] [address] [place], [place] CO2 [Moles/Vol] 28 mmol/L Normal 22-30 [facility] Comment on above: Performed By: #### P T/AP, TROPN, BMP3, HEMDF #### [place] [address] [address] [place], [place] Glucose [Mass/Vol] 120 mg/dL High 70-100 [facility] Comment on above: Performed By: #### P T/AP, TROPN, BMP3, HEMDF #### [place] [address] [place], [place] Urea nitrogen [Mass/Vol] 17 mg/dL Normal 7-17 [facility] Comment on above: Performed By: #### P T/AP, TROPN, BMP3, HEMDF #### [place] [place], [place] Creatinine [Mass/Vol] 0.65 mg/dL Normal 0.52-1.25 [facility] Comment on above: Performed By: #### P T/AP, TROPN, BMP3, HEMDF #### [place] [address] [place], [place] eGFR OTHER > 90.0 Normal >60 [...] #### P T/AP, TROPN, BMP3, HEMDF #### [address] GFR/1.73 sq M.predicted among blacks MDRD (S/P/Bld) [Vol rate/Area] mL/min/{1.73_m2} Normal >60 [facility] Comment on above: Performed By: #### P T/AP, TROPN, BMP3, HEMDF #### [address] Potassium [Moles/Vol] 3.8 mmol/L Normal 3.5-5.1 [facility] Comment on above: Performed By: #### P T/AP, TROPN, BMP3, HEMDF #### [address] Chloride [Moles/Vol] 101 mmol/L Normal 98-107 [facility] Comment on above: Performed By: #### P T/AP, TROPN, BMP3, HEMDF #### [address] Sodium [Moles/Vol] 134 mmol/L Low 135-145 [facility] Comment on above: Performed By: #### P T/AP, TROPN, BMP3, HEMDF #### [address] Anion gap [Moles/Vol] 6 mmol/L 3 - 13 mmol/L [facility] Calcium [Mass/Vol] 9.1 mg/dL 8.4 - 10. 4 mg/dL [facility] Chloride [Moles/Vol] 101 mmol/L 98 - 10 7 mmol/L [facility] CO2 [Moles/Vol] 28 mmol/L 22 - 30 mmol/L [facility] Creatinine [Mass/Vol] 0.65 mg/dL 0.52 - 1.25 mg/dL [facility] EGFR IF NonAfrican Faroese >90.0 >60 mL/min [facility] Comment on above: [...] - 17 mg/dL [facility] Test Performed by [id number] [place] [address] LAB [facility] CBC with Auto Differentialon 10-31-2021 [...] - 10.7 10*3/uL [facility] Test Performed by [facility], [address] [place] [id number] [place] [address] LAB [facility] CR Abdomen APon 10-31-2021 CR Abdomen AP Patient Name: ANDREW SIFUENTES Diagnostic Radiology ACCESSION EXAM DATE/TIME PROCEDURE ORDERING PROVIDER [id number] 10/31/2021 20:36 EDT CR Abdomen AP [id number] MARTÍNEZ CPT code 03623 Reason For Exam (CR Abdomen AP) 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, 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 CHEST PORTABLE [...] [facility] CR Chest Portableon 11-01-19 22 CR Chest Portable Patient Name: [id number] Diagnostic Radiology ACCESSION EXAM DATE/TIME PROCEDURE ORDERING PROVIDER [id number] 10/31/2021 20:36 EDT CR Chest Portable [id number] MYRON GALINDO CPT code 05196 Reason For Exam (CR Chest Portable) AMS [...] WO CONTRASTon 2021 Patient Name: [id number] Computed Tomography ACCESSION EXAM DATE/TIME PROCEDURE ORDERING PROVIDER [id number] 10/31/2021 20:[address] Head or Brain w/o [id number] -MYRON DURAN Contrast CPT code 44765 Reason For Exam (CT Head or Brain w/o Contrast) AMS, previous LANDSCAPE SUPERVISOR shunt Report Examination: CT Head Clinical Information: AMS, previous LANDSCAPE SUPERVISOR shunt Comparison: 10/26/2021, MRI 10/27/2021 Findings: [...] J Transcribed Date and Time: 10/31/2021 8:54 [facility] Carla Wong MD - 10/31/2021 Patient Name: [facility] [id number] Computed Tomography ACCESSION EXAM DATE/TIME PROCEDURE ORDERING PROVIDER [id number] 10/31/2021 20:[address] Head or Brain w/o [id number] -MYRON DURAN Contrast CPT code 06397 Reason For Exam (CT Head or Brain w/o Contrast) AMS, previous LANDSCAPE SUPERVISOR shunt Report Examination: CT Head Clinical Information: AMS, previous LANDSCAPE SUPERVISOR shunt Comparison: 10/26/2021, MRI 10/27/2021 Findings: [...] Patient Name: [facility] [id number] Computed Tomography ACCESSION EXAM DATE/TIME PROCEDURE ORDERING PROVIDER [id number] 10/31/2021 20:[address] Head or Brain w/o [id number] -MYRON DURAN Contrast CPT code 40697 Reason For Exam (CT Head or Brain w/o Contrast) AMS, previous LANDSCAPE SUPERVISOR shunt Report Examination: CT Head Clinical Information: AMS, previous LANDSCAPE SUPERVISOR shunt Comparison: 10/26/2021, MRI 10/27/2021 Findings: [...] Noteon ED Provider Note Emergency Department Encounter [facility] Patient: Andrew Sifuentes : [...] is cooperative and calm. According to the jail, he has been more lethargic than normal, [...] [employer] Dante Kim MD 10/31/21 9821 Normal [facility] ED Provider Note [facility] EMERGENCY DEPARTMENT ENCOUNTER Pt Name: Andrew Sifuenets Birthdate 1950 Date of evaluation: 10/31/2021 Provider: Myron Duran MD CHIEF COMPLAINT Chief Complaint Patient presents with ? Altered Mental Status Pt presents to ED via [facility] for complaint listed. Pt is from [place] [facility]. Pt's LKW was 1000 hours today. Per [...] have a history of hydrocephalus with a LANDSCAPE SUPERVISOR shunt. 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 REVIEW [...] (HCC) ? Kidney stone ? Neuropathy ? LANDSCAPE SUPERVISOR (ventriculoperitoneal) shunt status SURGICAL HISTORY Past [...] SIFUENTES Department: ER Room: 40 Gender: M Corporate Responsibility Officer: ANDRES : 1950 Requested By: MYRON DURAN Order Number: [id number] Reading MD: Dante Kim Measurements Intervals [place] Rate: 91 P: 41 VT: 154 QRS: 50 QRSD: 147 T: 8 QT: 385 QTc: 474 Interpretive Statements Sinus rhythm Right bundle branch block Electronically Signed On 10-31-2021 20:36:25 EDT by Dante Kim [facility] Dante Kim M D - 10/31/2021 [facility] Test Date: 2021-10-31 Pat Name: ANDREW SIFUENTES Department: ER Room: 40 Gender: M Corporate Responsibility Officer: ANDRES : 1950 Requested By: MYRON DURAN Order Number: [id number] Reading MD: Dante Kim Measurements Intervals [place] Rate: 91 P: 41 VT: 154 QRS: 50 QRSD: 147 T: 8 QT: 385 QTc: 474 Interpretive Statements Sinus rhythm Right bundle branch block Electronically Signed On 10-31-2021 20:36:[address] Dante Kim [facility] Work Phone: EKG 12 Lead - Chest PainOrde red By: Dante Kim on 10-31-2021 [facility] Work Phone: Hemogram w/ Autodiffon 10-31 Abs Baso Cnt 0.1 10*3/uL Normal 0.0-0.2 [facility] Comment on above: Performed By: #### P T/AP, TROPN, BMP3, HEMDF #### [facility] [address] [place] [address] Abs Neutrophile Cnt 6.0 10*3/uL Normal 1.8-7.0 [facility] Comment on above: Performed By: #### P T/AP, TROPN, BMP3, HEMDF #### [address] [place], [place] Basophils/100 WBC (Bld) 1.1 % Normal 0.0-2.0 [facility] Comment on above: Performed By: #### P T/AP, TROPN, BMP3, HEMDF #### [address] [address] [place], [place] Eosinophils (Bld) [#/Vol] 0.2 10*3/uL Normal 0.0-0.5 [facility] Comment on above: Performed By: #### P T/AP, TROPN, BMP3, HEMDF #### [address] [address] [place], [place] Eosinophils/100 WBC (Bld) 2.3 % Normal 1.0-6.0 [facility] Comment on above: Performed By: #### P T/AP, TROPN, BMP3, HEMDF #### [address] Erythrocyte distribution width (RBC) [Ratio] 17.2 % High 11.5-14.5 [facility] Comment on above: Performed By: #### P T/AP, TROPN, BMP3, HEMDF #### [address] Granulocytes/100 WBC (Bld) 61.8 % Normal 40.0-80.0 [facility] Comment on above: Performed By: #### P T/AP, TROPN, BMP3, HEMDF #### [address] [address] [place], [place] Hematocrit (Bld) [Volume fraction] 35.0 % Low 40.0-52.0 [facility] Comment on above: Performed By: #### P T/AP, TROPN, BMP3, HEMDF #### [address] [address] [place], [place] Hemoglobin (Bld) [Mass/Vol] 11.3 g/dL Low 13.0-18.0 [facility] Comment on above: Performed By: #### P T/AP, TROPN, BMP3, HEMDF #### [address] [place], [place] Lymphocytes (Bld) [#/Vol] 2.8 10*3/uL Normal 1.0-4.3 [facility] Comment on above: Performed By: #### P T/AP, TROPN, BMP3, HEMDF #### [address] [address] [place], [place] Lymphocytes/100 WBC (Bld) 29.2 % Normal 20.0-40.0 [facility] Comment on above: Performed By: #### P T/AP, TROPN, BMP3, HEMDF #### [address] MCH (RBC) [Entitic mass] 27.5 pg Normal 26.0-34.0 [facility] Comment on above: Performed By: #### P T/AP, TROPN, BMP3, HEMDF #### [address] [place], [place] MCHC 32.3 % Normal 32.0-36.0 [facility] Comment on above: Performed By: #### P T/AP, TROPN, BMP3, HEMDF #### [address] MCV (RBC) [Entitic vol] 85.0 fL Normal 80.0-98.0 [facility] Comment on above: Performed By: #### P T/AP, TROPN, BMP3, HEMDF #### [address] [place], [place] Monocytes (Bld) [#/Vol] 0.5 10*3/uL Normal 0.0-0.8 [facility] Comment on above: Performed By: #### P T/AP, TROPN, BMP3, HEMDF #### [address] [address] [place], [place] Monocytes/100 WBC (Bld) 5.6 % Normal 2.0-10.0 [facility] Comment on above: Performed By: #### P T/AP, TROPN, BMP3, HEMDF #### [facility] [address] [place], [place] Platelet mean volume (Bld) [Entitic vol] 8.6 fL Normal 7.4-12.4 [facility] Comment on above: Result Comment: MPV is a calculated measurement using platelet volume ratio. Performed By: #### P T/AP, TROPN, BMP3, HEMDF #### [facility] [address] [place], [place] Platelets (Bld) [#/Vol] 348 10*3/uL Normal 140-440 [facility] Comment on above: Performed By: #### P T/AP, TROPN, BMP3, HEMDF #### [address] [place], [place] RBC (Bld) [#/Vol] 4.12 10*6/uL Low 4.40-5.90 [facility] Comment on above: Performed By: #### P T/AP, TROPN, BMP3, HEMDF #### [facility] [address] [place], [place] WBC (Bld) [#/Vol] 9.7 10*3/uL Normal 3.6-10.7 [facility] Comment on above: Performed By: #### P T/AP, TROPN, BMP3, HEMDF #### [facility] [address] [place], [place] Laboratory - Coagulationon 0 10-31-2021 INR Coag (Bld) [Relative time] 2.0 {INR} [facility] Work Phone: Comment on above: Critical Value > 4.0 No Panel Informationon 10-31 Radiology Study observation (narrative) [facility] Work Phone: PROTIME/INR & PTTon 11-01-19 aPTT Coag (Bld) [Time] 39.2 s High 20.0 - 30.[address] [facility] Comment on above: NOTE: The therapeuti c time for Heparin anticoagulation, based on Xa activity inhibition, is an APTT of 46-80 seconds. INR Coag (Bld) [Relative time] 1.9 {INR} High [facility] Comment on above: Recommended Anticoag ulant [...] and review of laboratory results Abnormal [facility] PT Coag (PPP) [Time] 19.8 s High 9.0 - 12.0 s [facility] Comment on above: . Test Performed by [facility], [address] [place] [address] [facility] Protime AND APTTon 2 aPTT Coag (Bld) [Time] 39.2 s High 20.0-30.5 [facility] Comment on above: Result Comment: NOTE : The therapeutic time for Heparin anticoagulation, based on Xa activity inhibition, is an APTT of 46-80 seconds. Performed By: #### P T/AP, TROPN, BMP3, HEMDF #### [address] [address] INR 1.9 High 0.9-1.1 [facility] Comment on above: Result Comment: Ahrry mmended [...] #### P T/AP, TROPN, BMP3, HEMDF #### [address] [address] PT Coag (PPP) [Time] 19.8 s High 9.0-12.0 [facility] Comment on above: Result Comment: . Performed By: #### P T/AP, TROPN, BMP3, HEMDF #### [address] [address] Troponin Ion 10-31-2021 Troponin I.cardiac [Mass/Vol] ng/mL Normal 0.000-0.034 [facility] Comment on above: Result Comment: . Performed By: #### P T/AP, TROPN, BMP3, HEMDF #### [facility] [address] [place] [address] Troponin x1on 10-31-2021 Troponin I.cardiac [Mass/Vol] ng/mL 0.000 - 0.034 ng/mL [facility] Comment on above: . Test Performed by [facility], [address] [place] [address] 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 Work Phone: XR CHEST PORTABLEon 11-01-19 Patient Name: ANDREW SIFUENTES Diagnostic Radiology ACCESSION EXAM DATE/TIME PROCEDURE ORDERING PROVIDER [id number] 10/31/2021 20:36 EDT CR Chest Portable [id number] -MYRON DURAN CPT code 18078 Reason For Exam (CR Chest Portable) AMS [...] [facility] Huang Munoz MD - 10/31/2021 Patient Name: ANDREW SIFUENTES Diagnostic Radiology ACCESSION EXAM DATE/TIME PROCEDURE ORDERING PROVIDER [id number] 10/31/2021 20:36 EDT CR Chest Portable [id number] MYRON GALINDO CPT code 66046 Reason For Exam (CR Chest Portable) AMS [...] WENDELL Transcribed Date and Time: 10/31/2021 8:49 [facility] Work Phone: XR CHEST PORTABLEOrdered By: Huang Reynoso on 10-31-2021 [facility] Work Phone: Lupus Anticoagulanton 2021 DRVVT Confirmation Test Not Applicable Negative ratio [facility] Work Phone: dRVVT Screen 38 [facility] Work Phone: Hex Phosph Neut Test Not Applicable Negative NA [facility] Work Phone: Interpretation and review of laboratory results Abnormal [facility] Work Phone: LUPUS INTERPRETATION See Note [facility] Work Phone: Comment on above: [...] has not already been performed. Performed by [facility], [address], [facility] [place] [address] [email or web address], Quiana Castro MD - Lab. Director Platelet Neutralization Not Applicable Negative NA [facility] Work Phone: PTT-D Heparin Neutralized 48 [facility] Work Phone: PTT-LA 55 High [facility] Work Phone: Reptilase Tm 17.6 <=21.9 sec [facility] Work Phone: Thrombin Time 25.3 High [facility] Work Phone: [facility] Work Phone: Lupus Anticoagulant Reflexiv e Panelon 10-29-2021 aPTT Coag (Bld) [Time] 55 s High 32-48 [facility] Comment on above: Performed By: #### C OVAG #### [facility] [address] [place] [address] aPTT Coag (Bld) [Time] 48 s Normal 32-48 [facility] Comment on above: Performed By: #### C OVAG #### [facility] [address] [place] [address] DRVVT 1:1 Mix Not Applicable Normal 33-44 [facility] Work Phone: Comment on above: Performed By: #### C OVAG #### [facility] [address] [place] [address] dRVVT Confirmation Not Applicable Normal Negative [facility] Comment on above: Performed By: #### C OVAG #### [facility] [address] [place] [address] dRVVT Screen 38 sec Normal 33-44 [facility] Comment on above: Performed By: #### C OVAG #### [facility] [address] [place] [address] Hexagonal Phospholipid Neutral Reflex Not Applicable Normal Negative [facility] Comment on above: Performed By: #### C OVAG #### [facility] [address] [place] [address] Lupus Anticoagulant Interpretation See Note Normal [facility] [...] has not already been performed. Performed by [facility], [address] [place] [id number] [email or web address], Quiana Castro MD - Lab. Director Performed By: #### C OVAG #### [facility] [address] [place] [address] Platelet Neutralization (PTT-D, Confirm) Not Applicable Normal Negative [facility] Comment on above: Performed By: #### C OVAG #### [facility] [address] [place] [address] PT Coag (PPP) [Time] 14.7 s Normal 12.0-15.[address] [facility] Work Phone: Comment on above: Performed By: #### C OVAG #### [facility] [address] [place] [address] PTT-D 1:1 Mix Not Applicable Normal 32-48 [facility] Work Phone: Comment on above: Performed By: #### C OVAG #### [facility] [address] [place] [address] Reptilase Time 17.6 sec Normal <=21.9 [facility] Comment on above: Performed By: #### C OVAG #### [facility] [address] [place] [address] Thrombin Time 25.3 sec High 14.7-19.5 [facility] Comment on above: Performed By: #### C OVAG #### [facility] [address] [place] [address] POCT COVID-19, Antigenon SARS-CoV-2 Nucleocapsid Antigen Negative Negative NA [facility] Comment on above: A negative result does not rule out the possibility of SARS-CoV-2 infection. NAAT-based methods should be considered for symptomatic patients presenting greater than seven days after onset of symptoms. Method: Lateral flow immunoassay. Fact sheets for healthcare providers and patients can be found at the following sites: https://www.fda.gov/media/135537/download https://www.fda.gov/media/078673/download Test Performed by [facility], [address] [facility] [place], [place] [id number] [place] [address] [facility] Prothrombin Timeon INR 2.7 High 0.9-1.1 [facility] [...] #### [facility] [address] [place] [address] PT Coag (PPP) [Time] 27.4 s High 9.0-12.0 [facility] Comment on above: Result Comment: . Performed By: #### P T #### [facility] [address] [place] [address] Protime-INRon 10-29-2021 INR Coag (Bld) [Relative time] 2.7 {INR} High [facility] Work Phone: Comment on above: Recommended [...] and review of laboratory results Abnormal [facility] Work Phone: PT Coag (PPP) [Time] 27.4 s High 9.0 - 12.0 s [facility] Work Phone: [phone] Comment on above: . Test Performed by [facility], [address], [place], [place] [address] [facility] LAB [facility] Work Phone: [phone] SARS-CoV-2 Antigenon 022 SARS-CoV-2 Antigen Negative Normal Negative [facility] Comment on above: Result Comment: A negative result does not rule out the possibility of SARS-CoV-2 infection. NAAT-based methods should be considered for symptomatic patients presenting greater than seven days after onset of symptoms. Method: Lateral flow immunoassay. Fact sheets for healthcare providers and patients can be found at the following sites: https://www.Instac[employer].gov/media/281733/download https://www.Instac[employer].gov/media/209235/download Performed By: #### C OVAG #### [facility] [facility] [address] [place] [address] CBCon 10-28-2021 Hematocrit (Bld) [Volume fraction] 33.4 % Low 40.0 - 52.0 % [facility] Work Phone: Hemoglobin (Bld) [Mass/Vol] 11.0 g/dL Low 13.0 - 18.0 g/dL [facility] Work Phone: Interpretation and review of laboratory results Abnormal [facility] Work Phone: MCH (RBC) [Entitic mass] 27.8 pg 26.0 - 34.[address] [facility] Work Phone: MCHC (RBC) [Mass/Vol] 32.8 % 32.0 - 36.0 % [facility] Work Phone: MCV (RBC) [Entitic vol] 84.8 fL 80.0 - 98.[address] [facility] Work Phone: Platelet distribution width (Bld) [Ratio] 17.1 % High 11.5 - 14.5 % [facility] [employer] Work Phone: Platelet mean volume (Bld) [Entitic vol] 8.3 fL 7.4 - 12.4 fL [facility] [employer] [facility] [employer] Work Phone: Comment on above: MPV is a calculated measurement using platelet volume ratio. Platelets (Bld) [#/Vol] 344 10*3/uL 140 - 440 10*3/uL [facility] [employer] Work Phone: [phone] RBC (Bld) [#/Vol] 3.94 10*6/uL Low 4.40 - 5.9 0 10*6/uL [facility] [employer] Work Phone: [phone] WBC (Bld) [#/Vol] 10.0 10*3/uL 3.6 - 10.7 10*3/uL [facility] [employer] Work Phone: Test Performed by [facility], [address] [place], [place] [id number] [place] [address] [facility] Work Phone: Comp Metabolic Panelon 10-28 ALP [Catalytic activity/Vol] 103 U/L Normal 38-126 [facility] Comment on above: Performed By: #### C A19O, LUPUS #### The performing lab is in the report. #### NSEO #### [facility] #### HEMDF, LDH3, BMP3, MG3, PT, CEA2 #### [facility] [address] [place] [address] #### B2GPM, B2GPA, B2GPG #### [facility] [address] [place] [address] ALT [Catalytic activity/Vol] 26 U/L Normal 0-49 [...] [facility] [address] [place] [address] #### B2GPM, B2GPA, B2GPG #### [address] AST [Catalytic activity/Vol] 24 U/L Normal 15-46 [facility] Comment on above: Performed By: #### C A19O, LUPUS #### The performing lab is in the report. #### NSEO #### [facility] #### HEMDF, LDH3, BMP3, MG3, PT, CEA2 #### [place] [address] [place] #### B2GPM, B2GPA, B2GPG #### [address] Calcium [Mass/Vol] 9.1 mg/dL Normal 8.4-10.4 [facility] Comment on above: Performed By: #### C A19O, LUPUS #### The performing lab is in the report. #### NSEO #### [facility] #### HEMDF, LDH3, BMP3, MG3, PT, CEA2 #### [address] [place] [address] #### B2GPM, B2GPA, B2GPG #### [address] Glucose [Mass/Vol] 117 mg/dL High 70-100 [facility] Comment on above: Performed By: #### C A19O, LUPUS #### The performing lab is in the report. #### NSEO #### [facility] #### HEMDF, LDH3, BMP3, MG3, PT, CEA2 #### [place] [address] [place] [address] #### B2GPM, B2GPA, B2GPG #### [address] Urea nitrogen [Mass/Vol] 16 mg/dL Normal 7-17 [facility] Comment on above: Performed By: #### C A19O, LUPUS #### The performing lab is in the report. #### NSEO #### [facility] #### HEMDF, LDH3, BMP3, MG3, PT, CEA2 #### [place] [address] [place] [address] #### B2GPM, B2GPA, B2GPG #### [address] Anion gap [Moles/Vol] 5 mmol/L Normal 3-13 [facility] Comment on above: Performed By: #### C A19O, LUPUS #### The performing lab is in the report. #### NSEO #### [facility] #### HEMDF, LDH3, BMP3, MG3, PT, CEA2 #### [place] [address] [facility] [address] #### B2GPM, B2GPA, B2GPG #### [address] Bilirubin [Mass/Vol] 0.4 mg/dL Normal 0.2-1.3 [facility] Comment on above: Performed By: #### C A19O, LUPUS #### The performing lab is in the report. #### NSEO #### [facility] #### HEMDF, LDH3, BMP3, MG3, PT, CEA2 #### [place] [address] [place] [address] #### B2GPM, B2GPA, B2GPG #### [address] CO2 [Moles/Vol] 29 mmol/L Normal 22-30 [facility] Comment on above: Performed By: #### C A19O, LUPUS #### The performing lab is in the report. #### NSEO #### [facility] #### HEMDF, LDH3, BMP3, MG3, PT, CEA2 #### [place] [address] [place] [address] #### B2GPM, B2GPA, B2GPG #### [address] Creatinine [Mass/Vol] 0.71 mg/dL Normal 0.52-1.25 [facility] Comment on above: Performed By: #### C A19O, LUPUS #### The performing lab is in the report. #### NSEO #### [facility] #### HEMDF, LDH3, BMP3, MG3, PT, CEA2 #### [facility] [address] [place], [place] #### B2GPM, B2GPA, B2GPG #### [address] eGFR OTHER > 90.0 Normal >60 [...] #### [facility] [address] [facility] [address] #### B2GPM, B2GPA, B2GPG #### [address] GFR/1.73 sq M.predicted among blacks MDRD (S/P/Bld) [Vol rate/Area] mL/min/{1.73_m2} Normal >60 [facility] Comment on above: Performed By: #### C A19O, LUPUS #### The performing lab is in the report. #### NSEO #### [facility] #### HEMDF, LDH3, BMP3, MG3, PT, CEA2 #### [facility] [address] [place] [address] #### B2GPM, B2GPA, B2GPG #### [address] Protein [Mass/Vol] 7.1 g/dL Normal 6.3-8.2 [facility] Comment on above: Performed By: #### C A19O, LUPUS #### The performing lab is in the report. #### NSEO #### [facility] #### HEMDF, LDH3, BMP3, MG3, PT, CEA2 #### [facility] [address] [place] [address] #### B2GPM, B2GPA, B2GPG #### [address] Potassium [Moles/Vol] 3.5 mmol/L Normal 3.5-5.1 [facility] Comment on above: Performed By: #### C A19O, LUPUS #### The performing lab is in the report. #### NSEO #### [facility] #### HEMDF, LDH3, BMP3, MG3, PT, CEA2 #### [facility] [address] [place] [address] #### B2GPM, B2GPA, B2GPG #### [address] Sodium [Moles/Vol] 138 mmol/L Normal 135-145 [facility] Comment on above: Performed By: #### C A19O, LUPUS #### The performing lab is in the report. #### NSEO #### [facility] #### HEMDF, LDH3, BMP3, MG3, PT, CEA2 #### [facility] [address] [place] [address] #### B2GPM, B2GPA, B2GPG #### [address] Albumin [Mass/Vol] 3.7 g/dL Normal 3.5-5.0 [facility] Comment on above: Performed By: #### C A19O, LUPUS #### The performing lab is in the report. #### NSEO #### [facility] #### HEMDF, LDH3, BMP3, MG3, PT, CEA2 #### [facility] [address] [place] [address] #### B2GPM, B2GPA, B2GPG #### [address] Chloride [Moles/Vol] 104 mmol/L Normal 98-107 [facility] Comment on above: Performed By: #### C A19O, LUPUS #### The performing lab is in the report. #### NSEO #### [facility] #### HEMDF, LDH3, BMP3, MG3, PT, CEA2 #### [facility] [address] [place] [address] #### B2GPM, B2GPA, B2GPG #### [address] Comprehensive Metabolic Pane kiel 10-28-2021 Albumin [Mass/Vol] 3.7 g/dL 3.5 - 5.0 g/dL [facility] Work Phone: ALP (Bld) [Catalytic activity/Vol] 103 U/L 38 - 126 U/L [facility] Work Phone: ALT [Catalytic activity/Vol] 26 U/L 0 - 49 U/L [facility] Work Phone: Comment on above: The [...] [Mass/Vol] 0.71 mg/dL 0.52 - 1.25 mg/dL [facility] Work Phone: EGFR IF NonAfrican Faroese >90.0 >60 mL/min [facility] Work Phone: Comment on above: KDIGO [...] fraction] 7.1 g/dL 6.3 - 8.2 g/dL [facility] Work Phone: GFR/1.73 sq M.predicted among blacks MDRD (S/P/Bld) [Vol rate/Area] mL/min/{1.73_m2} >60 mL/min [facility] Work Phone: Glucose [Mass/Vol] 117 mg/dL High 70 - 100 mg/dL [facility] Work Phone: Interpretation and review of laboratory results Abnormal [facility] Work Phone: Potassium [Moles/Vol] 3.5 mmol/L 3.5 - 5.1 mmol/L [facility] Work Phone: Sodium [Moles/Vol] 138 mmol/L 135 - 145 mmol/L [facility] Work Phone: Urea nitrogen (BldV) [Mass/Vol] 16 mg/dL 7 - 17 mg/dL [facility] Work Phone: Test Performed by [facility], [address] [place] [address] [place] [address] [facility] Work Phone: Hemogramon 10-28-2021 Erythrocyte distribution width (RBC) [Ratio] 17.1 % High 11.5-14.5 [facility] Comment on above: Performed By: #### C A19O, LUPUS #### The performing lab is in the report. #### NSEO #### [facility] #### HEMDF, LDH3, BMP3, MG3, PT, CEA2 #### [address] [address] #### B2GPM, B2GPA, B2GPG #### [address] [address] Hematocrit (Bld) [Volume fraction] 33.4 % Low 40.0-52.0 [facility] Comment on above: Performed By: #### C A19O, LUPUS #### The performing lab is in the report. #### NSEO #### [facility] #### HEMDF, LDH3, BMP3, MG3, PT, CEA2 #### [address] [address] #### B2GPM, B2GPA, B2GPG #### [address] Hemoglobin (Bld) [Mass/Vol] 11.0 g/dL Low 13.0-18.0 [facility] Comment on above: Performed By: #### C A19O, LUPUS #### The performing lab is in the report. #### NSEO #### [facility] #### HEMDF, LDH3, BMP3, MG3, PT, CEA2 #### [place] [address] [place], [place] #### B2GPM, B2GPA, B2GPG #### [address] MCH (RBC) [Entitic mass] 27.8 pg Normal 26.0-34.0 [facility] Comment on above: Performed By: #### C A19O, LUPUS #### The performing lab is in the report. #### NSEO #### [facility] #### HEMDF, LDH3, BMP3, MG3, PT, CEA2 #### [address] [place], [place] #### B2GPM, B2GPA, B2GPG #### [address] MCHC 32.8 % Normal 32.0-36.0 [facility] Comment on above: Performed By: #### C A19O, LUPUS #### The performing lab is in the report. #### NSEO #### [facility] #### HEMDF, LDH3, BMP3, MG3, PT, CEA2 #### [address] [place], [place] #### B2GPM, B2GPA, B2GPG #### [address] MCV (RBC) [Entitic vol] 84.8 fL Normal 80.0-98.0 [facility] Comment on above: Performed By: #### C A19O, LUPUS #### The performing lab is in the report. #### NSEO #### [facility] #### HEMDF, LDH3, BMP3, MG3, PT, CEA2 #### [facility] [address] [place] [address] #### B2GPM, B2GPA, B2GPG #### [address] Platelet mean volume (Bld) [Entitic vol] 8.3 fL Normal 7.4-12.4 [facility] Comment on above: Result Comment: MPV is a calculated measurement using platelet volume ratio. Performed By: #### C A19O, LUPUS #### The performing lab is in the report. #### NSEO #### [facility] #### HEMDF, LDH3, BMP3, MG3, PT, CEA2 #### [address] [facility] [place] #### B2GPM, B2GPA, B2GPG #### [address] Platelets (Bld) [#/Vol] 344 10*3/uL Normal 140-440 [facility] Comment on above: Performed By: #### C A19O, LUPUS #### The performing lab is in the report. #### NSEO #### [facility] #### HEMDF, LDH3, BMP3, MG3, PT, CEA2 #### [address] [facility] [place] #### B2GPM, B2GPA, B2GPG #### [address] RBC (Bld) [#/Vol] 3.94 10*6/uL Low 4.40-5.90 [facility] Comment on above: Performed By: #### C A19O, LUPUS #### The performing lab is in the report. #### NSEO #### [facility] #### HEMDF, LDH3, BMP3, MG3, PT, CEA2 #### [address] [place] [address] #### B2GPM, B2GPA, B2GPG #### [facility] [address] [place] [address] WBC (Bld) [#/Vol] 10.0 10*3/uL Normal 3.6-10.7 [facility] Comment on above: Performed By: #### C A19O, LUPUS #### The performing lab is in the report. #### NSEO #### [facility] #### HEMDF, LDH3, BMP3, MG3, PT, CEA2 #### [facility] [address] [place] [address] #### B2GPM, B2GPA, B2GPG #### [facility] [address] [place], [place] Neuron Specific Enolaseon Neuron Specific Enolase [...] Serum This assay is performed using the [employer] NSE Kryptor Immunoassay. Results obtained with different assay methods or kits cannot be used interchangeably. Results cannot be interpreted as absolute evidence of the presence or absence of malignant disease. This test was developed and its performance characteristics determined by [employer]. It has not been cleared or approved by the [place] Food and Drug Administration. This test was performed in a CLIA certified laboratory and is intended for clinical purposes. Performed By: #### C OVAG #### [facility] [address] [place] [address] Neuron specific enolase (NSE )on 10-28-2021 Neuron Specific Enolase 20.8 [facility] Work Phone: Comment on above: Neuron Specific Enol ase, Serum 20.8 ng/mL H (Ref Interval: <=12.7) NSE and Hgb are elevated in the specimen. The elevated NSE may be a result of hemolysis as NSE is expressed in red blood cells. Interpret results with caution. INTERPRETIVE INFORMATION: Neuron Specific Enolase in Serum This assay is performed using the [employer] NSE Kryptor Immunoassay. Results obtained with different assay methods or kits cannot be used interchangeably. Results cannot be interpreted as absolute evidence of the presence or absence of malignant disease. This test was developed and its performance characteristics determined by [employer]. It has not been cleared or approved by the [place] Food and Drug Administration. This test was performed in a CLIA certified laboratory and is intended for clinical purposes. 1 [facility] Work Phone: Prothrombin Timeon 2 INR [...] #### [facility] [address] [place] [address] #### B2GPM, B2GPA, B2GPG #### [address] [address] PT Coag (PPP) [Time] 30.8 s High 9.0-12.0 [facility] Comment on above: Result Comment: . Performed By: #### C A19O, LUPUS #### The performing lab is in the report. #### NSEO #### [facility] #### HEMDF, LDH3, BMP3, MG3, PT, CEA2 #### [facility] [address] [place] [address] #### B2GPM, B2GPA, B2GPG #### [address] [address] Protime-INRon 10-28-2021 INR Coag (Bld) [Relative time] 3.1 {INR} High [facility] Work Phone: Comment on above: Recommended [...] and review of laboratory results Abnormal [facility] Work Phone: PT Coag (PPP) [Time] 30.8 s High 9.0 - 12.0 s [employer] Work Phone: Comment on above: . Test Performed by [facility], [address] [place], [place] [id number] [place] [address] [facility] Work Phone: MRI BRAIN WO CONTRASTon 10-06 Patient Name: ANDREW SIFUENTES Magnetic Resonance Imaging ACCESSION EXAM DATE/TIME PROCEDURE ORDERING PROVIDER [id number] 10/27/2021 13:14 EDT MRI Brain w/o Contrast UNASSIGNED, UNASSIGNED CPT code 45554 Reason For Exam (MRI Brain w/o Contrast) stroke Patient has LANDSCAPE SUPERVISOR shunt in place, please follow Radiology [...] OSAMA Transcribed Date and Time: 10/27/2021 2:39 [facility] Venus Loyd MD - 10/27/2021 Patient Name: ANDREW SIFUENTES Magnetic Resonance Imaging ACCESSION EXAM DATE/TIME PROCEDURE ORDERING PROVIDER [id number] 10/27/2021 13:14 EDT MRI Brain w/o Contrast UNASSIGNED, UNASSIGNED CPT code 05312 Reason For Exam (MRI Brain w/o Contrast) stroke Patient has LANDSCAPE SUPERVISOR shunt in place, please follow Radiology [...] Brain w/o Contrast Patient Name: ANDREW VELAZQUEZ [facility]#: [id number] Magnetic Resonance Imaging ACCESSION EXAM DATE/TIME PROCEDURE ORDERING PROVIDER [id number] 10/27/2021 13:14 EDT MRI Brain w/o Contrast UNASSIGNED, UNASSIGNED CPT code 01610 Reason For Exam (MRI Brain w/o Contrast) stroke Patient has LANDSCAPE SUPERVISOR shunt in place, please follow Radiology [...] [facility] [address] [place] [address] PT Coag (PPP) [Time] 21.9 s High 9.0-12.[address] [facility] Work Phone: Comment on above: . Result Comment: . Performed By: #### P T #### [facility] [address] [place] [address] Protime-INRon 10-27-2021 INR Coag (Bld) [Relative time] 2.1 {INR} High [facility] Work Phone: Comment on above: Recommended [...] and review of laboratory results Abnormal [facility] Work Phone: Test Performed by [facility], [address] [place], [place], [place] [address] [facility] Work Phone: CT HEAD WO CONTRASTon 2021 Patient Name: ANDREW SIFUENTES Computed Tomography ACCESSION EXAM DATE/TIME PROCEDURE ORDERING PROVIDER [id number] 10/26/2021 11:[address] Head or Brain w/o JUNIE PINEDA ALLISON Contrast CPT code 80289 Reason For Exam (CT Head or Brain w/o Contrast) hydrocephalus. thank you Report CLINICAL INFORMATION: Hydrocephalus. Shunt. 3 mm axial cuts through the head are obtained without IV contrast. The examination is compared to a previous study dated 06/29/2014. FINDINGS: Old LANDSCAPE SUPERVISOR shunt tubing is noted bilaterally. The [...] are clear. IMPRESSION: 1. Old and new LANDSCAPE SUPERVISOR shunt tubing. 2. No hydrocephalus. 3. [...] MD - 10/26/2021 [facility]: [id number] Computed Tomography ACCESSION EXAM DATE/TIME PROCEDURE ORDERING PROVIDER [id number] 10/26/2021 11:[address] Head or Brain w/o JUNIE PINEDA ALLISON Contrast CPT code 37370 Reason For Exam (CT Head or Brain w/o Contrast) hydrocephalus. thank you Report CLINICAL INFORMATION: Hydrocephalus. Shunt. 3 mm axial cuts through the head are obtained without IV contrast. The examination is compared to a previous study dated 06/29/2014. FINDINGS: Old LANDSCAPE SUPERVISOR shunt tubing is noted bilaterally. The [...] are clear. IMPRESSION: 1. Old and new LANDSCAPE SUPERVISOR shunt tubing. 2. No hydrocephalus. 3. [...] Tomography ACCESSION EXAM DATE/TIME PROCEDURE ORDERING PROVIDER [id number] 10/26/2021 11:[address] Head or Brain w/o JUNIE PINEDA, SARINA Contrast CPT code 88555 Reason For Exam (CT Head or Brain w/o Contrast) hydrocephalus. thank you Report CLINICAL INFORMATION: Hydrocephalus. Shunt. 3 mm axial cuts through the head are obtained without IV contrast. The examination is compared to a previous study dated 06/29/2014. FINDINGS: Old LANDSCAPE SUPERVISOR shunt tubing is noted bilaterally. The [...] are clear. IMPRESSION: 1. Old and new LANDSCAPE SUPERVISOR shunt tubing. 2. No hydrocephalus. 3. [...] Tompkins MD 10/26/2021 4:[address] [facility] [address] [place] [address] ROUTINE EEG REPORT Patient Name: Andrew Sifuentes : 1950 Date of Study: 10/26/2021 Duration Recorded: 23 minutes EEG#: [id number] MICROWAVE SUPERVISOR: CASTRO PROVIDER REQUESTING STUDY: Dr. Barreto REASON FOR EXAM: seizures HISTORY: Andrew Sifuentes is a 71 y.o. male with history of obstructive hydrocephalus s/p LANDSCAPE SUPERVISOR shunt in 1987, needing multiple revisions [...] normal limits and both old and new LANDSCAPE SUPERVISOR shunt tubing noted. At present patient is awake, follows commands, was able to tell his name, and that he was in hospital but not oriented to time. 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 Per daughter patient had seizures in the past and also felt he had staring episodes this morning. Per daughter patient has been essentially bed bound in [place] since May 2021 but prior to that [...] study with video was carried out at [facility]. Scalp electrodes were positioned in person by an nuclear medicine chief technologist, following patient education, according to the 10-20 International system of electrode placement and maintained for integrity and quality of the recording. EEG data with video was recorded continuously and digitally stored. The nuclear medicine chief technologist reviewed all automated detections and manual [...] No normal vari (more content not included)... [facility] [employer] Work Phone: [facility] [employer] Work Phone: No Panel Informationon 10-26 Radiology Study observation (narrative) [facility] [employer] Work Phone: Prothrombin Timeon 2 INR 1.9 High 0.9-1.1 [facility] [place] Comment on above: Result Comment: Harry mmended [...] Infarction Performed By: #### C OVAG #### [employer] [facility] [place] [address] [place] [address] PT Coag (PPP) [Time] 19.7 s High 9.0-12.0 [facility] [place] Comment on above: Result Comment: . Performed By: #### C OVAG #### [facility] [address] [place] [address] Protime-INRon 10-26-2021 INR Coag (Bld) [Relative time] 1.9 {INR} High [facility] Work Phone: Comment on above: Recommended [...] and review of laboratory results Abnormal [facility] Work Phone: PT Coag (PPP) [Time] 19.7 s High 9.0 - 12.0 s [facility] Work Phone: Comment on above: . Test Performed by [facility], [address] [place], [place] [id number] [place] [address] [facility] Work Phone: CA 19-9on 10-25-2021 CA 19-9 17 U/mL Normal <=35 [facility] Work Phone: Comment on above: INTERPRETIVE [...] or absence of malignant disease. Performed By: [place] [address] Diesel Stationary Engineer: Quiana Castro MD Result Comment: INTE RPRETIVE [...] or absence of malignant disease. Performed By: [place] [address] Diesel Stationary Engineer: Quiana Castro MD Performed By: #### C OVAG #### [facility] [address] [place] [address] Cancer Antigen 19-9on 2021 [facility] Work Phone: Prothrombin Timeon INR 1.5 High 0.9-1.1 [facility] Comment on above: Result Comment: Harry [...] Infarction Performed By: #### P T #### [facility] [address] [place] [address] PT Coag (PPP) [Time] 15.6 s High 9.0-12.0 [facility] Comment on above: Result Comment: . Performed By: #### P T #### [facility] [address] [place] [address] Protime-INRon 10-25-2021 INR Coag (Bld) [Relative time] 1.5 {INR} High [facility] Work Phone: Comment on above: Recommended [...] Interpretation and review of laboratory results Abnormal [facility] Work Phone: PT Coag (PPP) [Time] 15.6 s High 9.0 - 12.0 s [facility] Work Phone: Comment on above: . Test Performed by [facility], [address] [place], [place] [address] [facility] Work Phone: B-2 Glycoprotein (IGA)on Beta-2 Glyco 1 IgA <2.0 U/mL [facility] Work Phone: Comment on above: Interpretive Informa tion: Results equal to or greater than 20 U/mL = POSITIVE Results less than 20 U/mL = NEGATIVE B2 Glycoprotein I (IgM) Abon 10-24-2021 Beta-2 Glyco 1 IgM <1.5 U/mL [employer] Work Phone: Comment on above: Interpretive Informa tion: Results equal to or greater than 20 U/mL = POSITIVE Results less than 20 U/mL = NEGATIVE B2 Glycoprotein I Igg Abon 0 10-24-2021 Beta-2 Glyco 1 IgG <1.4 U/mL [employer] Work Phone: Comment on above: Interpretive Informa tion: Results equal to or greater than 20 U/mL = POSITIVE Results less than 20 U/mL = NEGATIVE Basic Metabolic Panelon 10-06 Anion gap [Moles/Vol] 8 mmol/L Normal 3-13 [facility] Comment on above: Performed By: #### C A19O, LUPUS #### The performing lab is in the report. #### NSEO #### [facility] #### HEMDF, LDH3, BMP3, MG3, PT, CEA2 #### [facility] [address] [place] [address] #### B2GPM, B2GPA, B2GPG #### [facility] [address] [place] [address] Calcium [Mass/Vol] 8.8 mg/dL Normal 8.4-10.4 [facility] Comment on above: Performed By: #### C A19O, LUPUS #### The performing lab is in the report. #### NSEO #### [facility] #### HEMDF, LDH3, BMP3, MG3, PT, CEA2 #### [facility] [address] [place] [address] #### B2GPM, B2GPA, B2GPG #### [address] CO2 [Moles/Vol] 25 mmol/L Normal 22-30 [facility] Comment on above: Performed By: #### C A19O, LUPUS #### The performing lab is in the report. #### NSEO #### [facility] #### HEMDF, LDH3, BMP3, MG3, PT, CEA2 #### [facility] [address] [place] [address] #### B2GPM, B2GPA, B2GPG #### [address] Creatinine [Mass/Vol] 0.74 mg/dL Normal 0.52-1.25 [facility] Comment on above: Performed By: #### C A19O, LUPUS #### The performing lab is in the report. #### NSEO #### [facility] #### HEMDF, LDH3, BMP3, MG3, PT, CEA2 #### [place] [address] [place] [address] #### B2GPM, B2GPA, B2GPG #### [address] eGFR OTHER > 90.0 Normal >60 [...] [facility] [address] [place] [address] #### B2GPM, B2GPA, B2GPG #### [address] GFR/1.73 sq M.predicted among blacks MDRD (S/P/Bld) [Vol rate/Area] mL/min/{1.73_m2} Normal >60 [facility] Comment on above: Performed By: #### C Mary LouO, LUPUS #### The performing lab is in the report. #### NSEO #### [facility] #### HEMDF, LDH3, BMP3, MG3, PT, CEA2 #### [facility] [address] [place] [address] #### B2GPM, B2GPA, B2GPG #### [address] Glucose [Mass/Vol] 116 mg/dL High 70-100 [facility] Comment on above: Performed By: #### C A19O, LUPUS #### The performing lab is in the report. #### NSEO #### [facility] #### HEMDF, LDH3, BMP3, MG3, PT, CEA2 #### [facility] [address] [place] [address] #### B2GPM, B2GPA, B2GPG #### [address] Urea nitrogen [Mass/Vol] 19 mg/dL High 7-17 [facility] Comment on above: Performed By: #### C A19O, LUPUS #### The performing lab is in the report. #### NSEO #### [facility] #### HEMDF, LDH3, BMP3, MG3, PT, CEA2 #### [place] [address] [place] [address] #### B2GPM, B2GPA, B2GPG #### [address] Chloride [Moles/Vol] 107 mmol/L Normal 98-107 [facility] Comment on above: Performed By: #### C A19O, LUPUS #### The performing lab is in the report. #### NSEO #### [facility] #### HEMDF, LDH3, BMP3, MG3, PT, CEA2 #### [place] [address] [place] [address] #### B2GPM, B2GPA, B2GPG #### [address] Potassium [Moles/Vol] 3.9 mmol/L Normal 3.5-5.1 [facility] Comment on above: Performed By: #### C A19O, LUPUS #### The performing lab is in the report. #### NSEO #### [facility] #### HEMDF, LDH3, BMP3, MG3, PT, CEA2 #### [address] [place] [address] #### B2GPM, B2GPA, B2GPG #### [address] Sodium [Moles/Vol] 140 mmol/L Normal 135-145 [facility] Comment on above: Performed By: #### C A19O, LUPUS #### The performing lab is in the report. #### NSEO #### [facility] #### HEMDF, LDH3, BMP3, MG3, PT, CEA2 #### [place] [address] [place] [address] #### B2GPM, B2GPA, B2GPG #### [address] [address] Anion gap [Moles/Vol] 8 mmol/L 3 - 13 mmol/L [facility] Calcium [Mass/Vol] 8.8 mg/dL 8.4 - 10. 4 mg/dL [facility] Chloride [Moles/Vol] 107 mmol/L 98 - 10 7 mmol/L [facility] CO2 [Moles/Vol] 25 mmol/L 22 - 30 mmol/L [facility] Creatinine [Mass/Vol] 0.74 mg/dL 0.52 - 1.25 mg/dL [facility] EGFR IF NonAfrican Faroese >90.0 >60 mL/min [facility] Comment on above: [...] - 17 mg/dL [facility] Test Performed by [facility], [address] [place], [place], [place] [id number] [place] [address] LAB [facility] Beta-2 Glycoprotein I IgAon 06-20-2022 Beta-2 Glycoprotein I IgA < 2.0 Normal [facility] Comment on above: Result Comment: Inte rpretive Information: Results equal to or greater than 20 U/mL = POSITIVE Results less than 20 U/mL = NEGATIVE Performed By: #### C OVAG #### [facility] [address] [place] [address] Beta-2 Glycoprotein I IgGon 10-24-2021 Beta-2 Glycoprotein I IgG < 1.4 Normal [facility] Comment on above: Result Comment: Inte rpretive Information: Results equal to or greater than 20 U/mL = POSITIVE Results less than 20 U/mL = NEGATIVE Performed By: #### C OVAG #### [facility] [address] [place] [address] Beta-2 Glycoprotein I IgMon 10-24-2021 Beta-2 Glycoprotein I IgM < 1.5 Normal [facility] Comment on above: Result Comment: Inte rpretive Information: Results equal to or greater than 20 U/mL = POSITIVE Results less than 20 U/mL = NEGATIVE Performed By: #### C OVAG #### [facility] [address] [place] [address] No Panel Informationon 10-24 [facility] Test Performed by [facility], [address] [place] [id number] [place] [address] LAB [facility] Work Phone: PROTEIN C FUNCTIONALon 10-24 Interpretation and review of laboratory results Abnormal [facility] Protein C-Functional 185 % High 83 [...] reference intervals for this test in the [facility] Test Directory ([facility]). Performed by [facility], [address] [facility], [place] [address] [email or web address], Quiana Castro MD - Lab. Director Protein C, Functionalon 10-06 Protein C, Functional 185 % High 83-168 [facility] Comment on above: Result Comment: INTE [...] reference intervals for this test in the [facility] Test Directory ([facility]). Performed by [facility], [address] [facility], [place] [address] [email or web address], Quiana Castro MD - Lab. Director Performed By: #### P T #### [facility] [address] [place] [address] Protein S, Functionalon 06-2 Protein S, Functional [...] reference intervals for this test in the [facility] Test Directory ([facility]). Performed by [facility], [address] [facility], [place] [address] [email or web address], Quiana Castro MD - Lab. Director Result [...] reference intervals for this test in the [facility] Test Directory ([facility]). Performed by [facility], [address] [facility], [place] [id number] [email or web address], Quiana Castro MD - Lab. Director Performed By: #### P T #### [facility] [address] [place] [address] Prothrombin Timeon INR 1.2 High 0.9-1.1 [facility] Comment on [...] HEMDF, LDH3, BMP3, MG3, PT, CEA2 #### [place] [address] [place] [address] #### B2GPM, B2GPA, B2GPG #### [address] [address] PT Coag (PPP) [Time] 12.6 s High 9.0-12.0 [facility] Comment on above: Result Comment: . Performed By: #### C A19O, LUPUS #### The performing lab is in the report. #### NSEO #### [facility] #### HEMDF, LDH3, BMP3, MG3, PT, CEA2 #### [address] [place] [address] #### B2GPM, B2GPA, B2GPG #### [address] [address] Protime-INRon 10-24-2021 INR Coag (Bld) [Relative time] 1.2 {INR} High [facility] Comment on above: Recommended Anticoag ulant [...] and review of laboratory results Abnormal [facility] PT Coag (PPP) [Time] 12.6 s High 9.0 - 12.0 s [facility] Comment on above: . Test Performed by [facility], [address] [facility] Basic Metabolic Panelon 10-05 Anion gap [Moles/Vol] 10 mmol/L Normal 3-13 [facility] Comment on above: Performed By: #### C A19O, LUPUS #### The performing lab is in the report. #### NSEO #### [facility] #### HEMDF, LDH3, BMP3, MG3, PT, CEA2 #### [place] [address] [place] [address] #### B2GPM, B2GPA, B2GPG #### [address] [phone] Calcium [Mass/Vol] 9.6 mg/dL Normal 8.4-10.4 [facility] Comment on above: Performed By: #### C A19O, LUPUS #### The performing lab is in the report. #### NSEO #### [facility] #### HEMDF, LDH3, BMP3, MG3, PT, CEA2 #### [facility] [address] [place] [address] #### B2GPM, B2GPA, B2GPG #### [address] [address] CO2 [Moles/Vol] 27 mmol/L Normal 22-30 [facility] Comment on above: Performed By: #### C A19O, LUPUS #### The performing lab is in the report. #### NSEO #### [facility] #### HEMDF, LDH3, BMP3, MG3, PT, CEA2 #### [address] [place] [address] #### B2GPM, B2GPA, B2GPG #### [address] Glucose [Mass/Vol] 109 mg/dL High 70-100 [facility] Comment on above: Performed By: #### C A19O, LUPUS #### The performing lab is in the report. #### NSEO #### [facility] #### HEMDF, LDH3, BMP3, MG3, PT, CEA2 #### [address] [place] [address] #### B2GPM, B2GPA, B2GPG #### [address] Urea nitrogen [Mass/Vol] 18 mg/dL High 7-17 [facility] Comment on above: Performed By: #### C A19O, LUPUS #### The performing lab is in the report. #### NSEO #### [facility] #### HEMDF, LDH3, BMP3, MG3, PT, CEA2 #### [address] [place] [address] #### B2GPM, B2GPA, B2GPG #### [address] Creatinine [Mass/Vol] 0.82 mg/dL Normal 0.52-1.25 [facility] Comment on above: Performed By: #### C A19O, LUPUS #### The performing lab is in the report. #### NSEO #### [facility] #### HEMDF, LDH3, BMP3, MG3, PT, CEA2 #### [address] [place] [address] #### B2GPM, B2GPA, B2GPG #### [address] GFR/1.73 sq M.predicted among blacks MDRD (S/P/Bld) [Vol rate/Area] mL/min/{1.73_m2} Normal >60 [facility] Comment on above: Performed By: #### C A19O, LUPUS #### The performing lab is in the report. #### NSEO #### [facility] #### HEMDF, LDH3, BMP3, MG3, PT, CEA2 #### [facility] [address] [place] [address] #### B2GPM, B2GPA, B2GPG #### [facility] [address] [place] [address] GFR/1.73 sq M.predicted among non-blacks MDRD (S/P/Bld) [...] #### [facility] [address] [place] [address] #### B2GPM, B2GPA, B2GPG #### [facility] [address] [place] [address] Chloride [Moles/Vol] 104 mmol/L Normal 98-107 [facility] Comment on above: Performed By: #### C A19O, LUPUS #### The performing lab is in the report. #### NSEO #### [facility] #### HEMDF, LDH3, BMP3, MG3, PT, CEA2 #### [place] [address] [place] [address] #### B2GPM, B2GPA, B2GPG #### [address] Potassium [Moles/Vol] 3.9 mmol/L Normal 3.5-5.1 [facility] Comment on above: Performed By: #### C A19O, LUPUS #### The performing lab is in the report. #### NSEO #### [facility] #### HEMDF, LDH3, BMP3, MG3, PT, CEA2 #### [place] [address] [place] [address] #### B2GPM, B2GPA, B2GPG #### [address] Sodium [Moles/Vol] 142 mmol/L Normal 135-145 [facility] Comment on above: Performed By: #### C A19O, LUPUS #### The performing lab is in the report. #### NSEO #### [facility] #### HEMDF, LDH3, BMP3, MG3, PT, CEA2 #### [place] [address] [place] [address] #### B2GPM, B2GPA, B2GPG #### [address] Anion gap [Moles/Vol] 10 mmol/L 3 - 13 mmol/L [facility] Work Phone: Calcium [Mass/Vol] 9.6 mg/dL 8.4 - 10. 4 mg/dL [facility] Work Phone: [phone] Chloride [Moles/Vol] 104 mmol/L 98 - 10 7 mmol/L [facility] Work Phone: [phone] CO2 [Moles/Vol] 27 mmol/L 22 - 30 mmol/L [facility] Work Phone: Creatinine [Mass/Vol] 0.82 mg/dL 0.52 - 1.25 mg/dL [facility] Work Phone: EGFR IF NonAfrican Faroese 89.9 mL/min >60 [facility] Work Phone: [phone] Comment on above: KDIGO guidelines pro [...] MDRD (S/P/Bld) [Vol rate/Area] mL/min/{1.73_m2} >60 mL/min [facility] Work Phone: [phone] Glucose [Mass/Vol] 109 mg/dL High 70 - 100 mg/dL [facility] Work Phone: [phone] Interpretation and review of laboratory results Abnormal [facility] Work Phone: [phone] Potassium [Moles/Vol] 3.9 mmol/L 3.5 - 5.1 mmol/L [facility] Work Phone: Sodium [Moles/Vol] 142 mmol/L 135 - 145 mmol/L [facility] Work Phone: Urea nitrogen (BldV) [Mass/Vol] 18 mg/dL High 7 - 17 mg/dL [facility] Work Phone: CBC with Auto Differentialon [...] (Bld) 3.9 % 1.0 - 6.0 % [facility] Work Phone: [phone] Granulocytes/100 WBC (Bld) 64.0 % 40.0 - 80.0 % [facility] Work Phone: [phone] Hematocrit (Bld) [Volume fraction] 35.1 % Low 40.0 - 52.0 % [facility] Work Phone: [phone] Hemoglobin (Bld) [Mass/Vol] 11.6 g/dL Low 13.0 - 18.0 g/dL [facility] Work Phone: [phone] Interpretation and review of laboratory results Abnormal [facility] Work Phone: [phone] Lymphocytes (Bld) [#/Vol] 2.6 10*3/uL 1.0 - 4.3 10*3/uL [facility] Work Phone: [phone] Lymphocytes/100 WBC (Bld) 25.0 % 20.0 - 40.0 % [facility] Work Phone: [phone] MCH (RBC) [Entitic mass] 28.4 pg 26.0 - 34.0 pg [facility] Work Phone: [phone] MCHC (RBC) [Mass/Vol] 33.1 % 32.0 - 36.0 % [facility] Work Phone: [phone] MCV (RBC) [Entitic vol] 85.9 fL 80.0 - 98.0 fL [facility] [employer] Work Phone: [phone] Monocytes (Bld) [#/Vol] [...] 450 10*3/uL High 140 - 440 10*3/uL [facility] Work Phone: [phone] RBC (Bld) [#/Vol] 4.08 10*6/uL Low 4.40 - 5.9 0 10*6/uL [facility] Work Phone: [phone] WBC (Bld) [#/Vol] 10.3 10*3/uL 3.6 - 10.7 10*3/uL [facility] Work Phone: [phone] Test Performed by [facility], [address] LAB [facility] [employer] Work Phone: [phone] CEAon 10-23-2021 CEA 0.8 ng/mL 0.0 - 3.0 ng/mL [facility] Work Phone: [phone] Test Performed by [facility] [employer] [facility], [address] LAB [employer] Work Phone: [phone] Carcinoembryonic Agon 2021 Carcinoembryonic Ag. 0.8 ng/mL Normal 0.0-3.0 [facility] [employer] [facility] Comment on above: Performed By: #### C A19O, LUPUS #### The performing lab is in the report. #### NSEO #### [facility] #### HEMDF, LDH3, BMP3, MG3, PT, CEA2 #### [facility] [employer] [facility] [address] [place] [address] #### B2GPM, B2GPA, B2GPG #### [address] Hemogram w/ Autodiffon 10-23 Abs Baso Cnt 0.1 10*3/uL Normal 0.0-0.2 [facility] Comment on above: Performed By: #### C A19O, LUPUS #### The performing lab is in the report. #### NSEO #### [facility] #### HEMDF, LDH3, BMP3, MG3, PT, CEA2 #### [facility] [address] [place], [place] #### B2GPM, B2GPA, B2GPG #### [address] Abs Neutrophile Cnt 6.6 10*3/uL Normal 1.8-7.0 [facility] Comment on above: Performed By: #### C A19O, LUPUS #### The performing lab is in the report. #### NSEO #### [facility] #### HEMDF, LDH3, BMP3, MG3, PT, CEA2 #### [facility] [address] [place], [place] #### B2GPM, B2GPA, B2GPG #### [address] Basophils/100 WBC (Bld) 1.1 % Normal 0.0-2.0 [facility] Comment on above: Performed By: #### C A19O, LUPUS #### The performing lab is in the report. #### NSEO #### [facility] #### HEMDF, LDH3, BMP3, MG3, PT, CEA2 #### [facility] [address] [place], [place] #### B2GPM, B2GPA, B2GPG #### [address] Eosinophils (Bld) [#/Vol] 0.4 10*3/uL Normal 0.0-0.5 [facility] Comment on above: Performed By: #### C A19O, LUPUS #### The performing lab is in the report. #### NSEO #### [facility] #### HEMDF, LDH3, BMP3, MG3, PT, CEA2 #### [facility] [address] [place] [address] #### B2GPM, B2GPA, B2GPG #### [address] [address] Eosinophils/100 WBC (Bld) 3.9 % Normal 1.0-6.0 [facility] Comment on above: Performed By: #### C A19O, LUPUS #### The performing lab is in the report. #### NSEO #### [facility] #### HEMDF, LDH3, BMP3, MG3, PT, CEA2 #### [facility] [address] [place] [address] #### B2GPM, B2GPA, B2GPG #### [address] [address] Erythrocyte distribution width (RBC) [Ratio] 17.4 % High 11.5-14.5 [facility] Comment on above: Performed By: #### C A19O, LUPUS #### The performing lab is in the report. #### NSEO #### [facility] #### HEMDF, LDH3, BMP3, MG3, PT, CEA2 #### [facility] [address] [place] [address] #### B2GPM, B2GPA, B2GPG #### [address] [address] Granulocytes/100 WBC (Bld) 64.0 % Normal 40.0-80.0 [facility] Comment on above: Performed By: #### C A19O, LUPUS #### The performing lab is in the report. #### NSEO #### [facility] #### HEMDF, LDH3, BMP3, MG3, PT, CEA2 #### [place] [address] [place] #### B2GPM, B2GPA, B2GPG #### [address] Hematocrit (Bld) [Volume fraction] 35.1 % Low 40.0-52.0 [facility] Comment on above: Performed By: #### C A19O, LUPUS #### The performing lab is in the report. #### NSEO #### [facility] #### HEMDF, LDH3, BMP3, MG3, PT, CEA2 #### [address] [place] #### B2GPM, B2GPA, B2GPG #### [address] Hemoglobin (Bld) [Mass/Vol] 11.6 g/dL Low 13.0-18.0 [facility] Comment on above: Performed By: #### C A19O, LUPUS #### The performing lab is in the report. #### NSEO #### [facility] #### HEMDF, LDH3, BMP3, MG3, PT, CEA2 #### [address] [place] #### B2GPM, B2GPA, B2GPG #### [address] Lymphocytes (Bld) [#/Vol] 2.6 10*3/uL Normal 1.0-4.3 [facility] Comment on above: Performed By: #### C A19O, LUPUS #### The performing lab is in the report. #### NSEO #### [facility] #### HEMDF, LDH3, BMP3, MG3, PT, CEA2 #### [address] [place] #### B2GPM, B2GPA, B2GPG #### [address] Lymphocytes/100 WBC (Bld) 25.0 % Normal 20.0-40.0 [facility] Comment on above: Performed By: #### C A19O, LUPUS #### The performing lab is in the report. #### NSEO #### [facility] #### HEMDF, LDH3, BMP3, MG3, PT, CEA2 #### [facility] [address] [place] [address] #### B2GPM, B2GPA, B2GPG #### [address] MCH (RBC) [Entitic mass] 28.4 pg Normal 26.0-34.0 [facility] Comment on above: Performed By: #### C A19O, LUPUS #### The performing lab is in the report. #### NSEO #### [facility] #### HEMDF, LDH3, BMP3, MG3, PT, CEA2 #### [facility] [address] [place], [place] #### B2GPM, B2GPA, B2GPG #### [address] MCHC 33.1 % Normal 32.0-36.0 [facility] Comment on above: Performed By: #### C A19O, LUPUS #### The performing lab is in the report. #### NSEO #### [facility] #### HEMDF, LDH3, BMP3, MG3, PT, CEA2 #### [facility] [address] [place] #### B2GPM, B2GPA, B2GPG #### [address] MCV (RBC) [Entitic vol] 85.9 fL Normal 80.0-98.0 [facility] Comment on above: Performed By: #### C A19O, LUPUS #### The performing lab is in the report. #### NSEO #### [facility] #### HEMDF, LDH3, BMP3, MG3, PT, CEA2 #### [place] [address] [place] #### B2GPM, B2GPA, B2GPG #### [address] Monocytes (Bld) [#/Vol] 0.6 10*3/uL Normal 0.0-0.8 [facility] Comment on above: Performed By: #### C A19O, LUPUS #### The performing lab is in the report. #### NSEO #### [facility] #### HEMDF, LDH3, BMP3, MG3, PT, CEA2 #### [address] [place] #### B2GPM, B2GPA, B2GPG #### [address] Monocytes/100 WBC (Bld) 6.0 % Normal 2.0-10.0 [facility] Comment on above: Performed By: #### C A19O, LUPUS #### The performing lab is in the report. #### NSEO #### [facility] #### HEMDF, LDH3, BMP3, MG3, PT, CEA2 #### [address] [facility] [place] #### B2GPM, B2GPA, B2GPG #### [address] Platelet mean volume (Bld) [Entitic vol] 8.1 fL Normal 7.4-12.4 [facility] Comment on above: Result Comment: MPV is a calculated measurement using platelet volume ratio. Performed By: #### C A19O, LUPUS #### The performing lab is in the report. #### NSEO #### [facility] #### HEMDF, LDH3, BMP3, MG3, PT, CEA2 #### [place] [address] [place] #### B2GPM, B2GPA, B2GPG #### [place] [address] [place], [place] Platelets (Bld) [#/Vol] 450 10*3/uL High 140-440 [facility] Comment on above: Performed By: #### C A19O, LUPUS #### The performing lab is in the report. #### NSEO #### [facility] #### HEMDF, LDH3, BMP3, MG3, PT, CEA2 #### [facility] [address] [place], [place] #### B2GPM, B2GPA, B2GPG #### [address] RBC (Bld) [#/Vol] 4.08 10*6/uL Low 4.40-5.90 [facility] Comment on above: Performed By: #### C A19O, LUPUS #### The performing lab is in the report. #### NSEO #### [facility] #### HEMDF, LDH3, BMP3, MG3, PT, CEA2 #### [facility] [address] [place], [place] #### B2GPM, B2GPA, B2GPG #### [address] WBC (Bld) [#/Vol] 10.3 10*3/uL Normal 3.6-10.7 [facility] Comment on above: Performed By: #### C A19O, LUPUS #### The performing lab is in the report. #### NSEO #### [facility] #### HEMDF, LDH3, BMP3, MG3, PT, CEA2 #### [facility] [address] [place] [address] #### B2GPM, B2GPA, B2GPG #### [address] LDHon 10-23-2021 LDH 136 U/L Normal 120-246 [facility] Comment on above: Performed By: #### C A19O, LUPUS #### The performing lab is in the report. #### NSEO #### [facility] #### HEMDF, LDH3, BMP3, MG3, PT, CEA2 #### [facility] [employer] [address] [place] [address] #### B2GPM, B2GPA, B2GPG #### [facility] [address] [place] [address] Lactate Dehydrogenaseon - LD 136 U/L 120 - 246 U/L [facility] Work Phone: MRI ABDOMEN WO CONTRASTon Patient Name: ANDREW SIFUENTES Magnetic Resonance Imaging ACCESSION EXAM DATE/TIME PROCEDURE ORDERING PROVIDER [id number] 10/23/2021 11:08 EDT MRI Abdomen w/o Contrast DONOVAN SRIVASTAVAW CPT code 81904 Reason For Exam (MRI Abdomen w/o Contrast) [...] Imaging ACCESSION EXAM DATE/TIME PROCEDURE ORDERING PROVIDER [id number] 10/23/2021 11:08 EDT MRI Abdomen w/o Contrast WING SRIVASTAVA CPT code 34466 Reason For Exam (MRI Abdomen w/o Contrast) [...] CONTRASTOrder ed By: Unknown Result on 10-23-2021 [facility]en w/o Contraston 0 10-23-2021 MRI Abdomen w/o Contrast Patient Name: [id number] Magnetic Resonance Imaging ACCESSION EXAM DATE/TIME PROCEDURE ORDERING PROVIDER [id number] 10/23/2021 11:08 EDT MRI Abdomen w/o Contrast WING SRIVASTAVA CPT code 51612 Reason For Exam (MRI Abdomen w/o Contrast) [...] 2.1 mg/dL Normal 1.6-2.3 [facility] Comment on above: Performed By: #### C A19O, LUPUS #### The performing lab is in the report. #### NSEO #### [facility] #### HEMDF, LDH3, BMP3, MG3, PT, CEA2 #### [facility] [address] [place] [address] #### B2GPM, B2GPA, B2GPG #### [address] [address] Magnesium [Mass/Vol] 2.1 mg/dL 1.6 - 2 .3 mg/dL [facility] Work Phone: No Panel Informationon 10-23 Test Performed by [facility], [address] [place], [place] [id number] [place] [address] [facility] Work Phone: Prothrombin Timeon 2 INR [...] HEMDF, LDH3, BMP3, MG3, PT, CEA2 #### [address] [place] [address] #### B2GPM, B2GPA, B2GPG #### [address] [address] PT Coag (PPP) [Time] 12.2 s High 9.0-12.0 [facility] Comment on above: Result Comment: . Performed By: #### C A19O, LUPUS #### The performing lab is in the report. #### NSEO #### [facility] #### HEMDF, LDH3, BMP3, MG3, PT, CEA2 #### [address] [place] [address] #### B2GPM, B2GPA, B2GPG #### [address] [address] Protime-INRon 10-23-2021 INR Coag (Bld) [Relative time] 1.1 {INR} [facility] Work Phone: Comment on above: Recommended [...] and review of laboratory results Abnormal [facility] Work Phone: PT Coag (PPP) [Time] 12.2 s High 9.0 - 12.0 s [facility] Work Phone: Comment on above: . Test Performed by [facility], [address] [place] [address] [facility] LAB [facility] Work Phone: Basic Metabolic Panelon 10-05-2021 Calcium [Mass/Vol] 8.9 mg/dL Normal 8.4-10.4 [facility] Comment on above: Performed By: #### P T #### [facility] [address] [place] [address] Glucose [Mass/Vol] 110 mg/dL High 70-100 [facility] Comment on above: Performed By: #### P T #### [facility] [address] [place] [address] Urea nitrogen [Mass/Vol] 14 mg/dL Normal 7-17 [facility] Comment on above: Performed By: #### P T #### [facility] [address] [place] [address] Anion gap [Moles/Vol] 7 mmol/L Normal 3-13 [facility] Comment on above: Performed By: #### P T #### [facility] [address] [place] [address] CO2 [Moles/Vol] 26 mmol/L Normal 22-30 [facility] Comment on above: Performed By: #### P T #### [facility] [address] [place] [address] Creatinine [Mass/Vol] 0.71 mg/dL Normal 0.52-1.25 [facility] Comment on above: Performed By: #### P T #### [facility] [address] [place] [address] eGFR OTHER > 90.0 Normal >60 [facility] [address] [place] [address] GFR/1.73 sq M.predicted among blacks MDRD (S/P/Bld) [Vol rate/Area] mL/min/{1.73_m2} Normal >60 [facility] Comment on above: Performed By: #### P T #### [facility] [address] [place] [address] Potassium [Moles/Vol] 3.8 mmol/L Normal 3.5-5.1 [facility] Comment on above: Performed By: #### P T #### [facility] [address] [place] [address] Chloride [Moles/Vol] 106 mmol/L Normal 98-107 [facility] Comment on above: Performed By: #### P T #### [facility] [address] [place] [address] Sodium [Moles/Vol] 139 mmol/L Normal 135-145 [facility] Comment on above: Performed By: #### P T #### [place] [address] [place] [address] Anion gap [Moles/Vol] 7 mmol/L 3 - 13 mmol/L [facility] Calcium [Mass/Vol] 8.9 mg/dL 8.4 - 10. 4 mg/dL [facility] Chloride [Moles/Vol] 106 mmol/L 98 - 10 7 mmol/L [facility] CO2 [Moles/Vol] 26 mmol/L 22 - 30 mmol/L [facility] Creatinine [Mass/Vol] 0.71 mg/dL 0.52 - 1.25 mg/dL [facility] EGFR IF NonAfrican Faroese >90.0 >60 mL/min [facility] Comment on above: [...] - 10.7 10*3/uL [facility] Test Performed by [facility], [address] [place], [place] [id number] [place] [address] [address] [facility] Wo Umair johnston 10-22-2021 Patient Name: ANDREW SIFUENTES Computed Tomography ACCESSION EXAM DATE/TIME PROCEDURE ORDERING PROVIDER [id number] 10/22/2021 13:[address] Abdomen/Pelvis (No WING SRIVASTAVA PO, No IV) CPT code 33144 Reason For Exam (CT Abdomen/Pelvis (No PO, [...] HARLAN Transcribed Date and Time: 10/22/2021 2:37 [facility] Humphrey Melton MD - 10/22/2021 Patient Name: ANDREW SIFUENTES Computed Tomography ACCESSION EXAM DATE/TIME PROCEDURE ORDERING PROVIDER [id number] 10/22/2021 13:[address] Abdomen/Pelvis (No SRIVASTAVA, WING PO, No IV) CPT code 72516 Reason For Exam (CT Abdomen/Pelvis (No PO, [...] Tomography ACCESSION EXAM DATE/TIME PROCEDURE ORDERING PROVIDER [id number] 10/22/2021 13:[address] Abdomen/Pelvis (No SRIVASTAVA, WING PO, No IV) CPT code 77171 Reason For Exam (CT Abdomen/Pelvis (No PO, [...] [facility] [address] [place] [address] Abs Neutrophile Cnt 6.0 10*3/uL Normal 1.8-7.0 [facility] Comment on above: Performed By: #### P T #### [facility] [address] [place] [address] Basophils/100 WBC (Bld) 1.0 % Normal 0.0-2.0 [facility] Comment on above: Performed By: #### P T #### [facility] [address] [place] [address] Eosinophils (Bld) [#/Vol] 0.3 10*3/uL Normal 0.0-0.5 [facility] Comment on above: Performed By: #### P T #### [facility] [address] [place] [address] Eosinophils/100 WBC (Bld) 3.0 % Normal 1.0-6.0 [facility] Comment on above: Performed By: #### P T #### [facility] [address] [place] [address] Erythrocyte distribution width (RBC) [Ratio] 17.1 % High 11.5-14.5 [facility] Comment on above: Performed By: #### P T #### [facility] [address] [place] [address] Granulocytes/100 WBC (Bld) 64.1 % Normal 40.0-80.0 [facility] Comment on above: Performed By: #### P T #### [facility] [address] [place] [address] Hematocrit (Bld) [Volume fraction] 33.4 % Low 40.0-52.0 [facility] Comment on above: Performed By: #### P T #### [facility] [address] [place] [address] Hemoglobin (Bld) [Mass/Vol] 10.9 g/dL Low 13.0-18.0 [facility] Comment on above: Performed By: #### P T #### [facility] [address] [place] [address] Lymphocytes (Bld) [#/Vol] 2.5 10*3/uL Normal 1.0-4.3 [facility] Comment on above: Performed By: #### P T #### [facility] [address] [place] [address] Lymphocytes/100 WBC (Bld) 26.3 % Normal 20.0-40.0 [facility] Comment on above: Performed By: #### P T #### [place] [address] [place] [address] MCH (RBC) [Entitic mass] 28.2 pg Normal 26.0-34.0 [facility] Comment on above: Performed By: #### P T #### [place] [address] [place] [address] MCHC 32.7 % Normal 32.0-36.0 [facility] Comment on above: Performed By: #### P T #### [facility] [address] [place] [address] MCV (RBC) [Entitic vol] 86.3 fL Normal 80.0-98.0 [facility] Comment on above: Performed By: #### P T #### [place] [address] [place] [address] Monocytes (Bld) [#/Vol] 0.5 10*3/uL Normal 0.0-0.8 [facility] Comment on above: Performed By: #### P T #### [facility] [address] [place] [address] Monocytes/100 WBC (Bld) 5.6 % Normal 2.0-10.0 [facility] Comment on above: Performed By: #### P T #### [place] [address] [place] [address] Platelet mean volume (Bld) [Entitic vol] 7.6 fL Normal 7.4-12.4 [facility] Comment on above: Result Comment: MPV is a calculated measurement using platelet volume ratio. Performed By: #### P T #### [place] [address] [place] [address] Platelets (Bld) [#/Vol] 369 10*3/uL Normal 140-440 [facility] Comment on above: Performed By: #### P T #### [facility] [address] [place] [address] RBC (Bld) [#/Vol] 3.87 10*6/uL Low 4.40-5.90 [facility] Comment on above: Performed By: #### P T #### [facility] [address] [place] [address] WBC (Bld) [#/Vol] 9.4 10*3/uL Normal 3.6-10.7 [facility] Comment on above: Performed By: #### P T #### [facility] [address] [place] [address] Magnesiumon 10-22-2021 Magnesium [Mass/Vol] 2.0 mg/dL Normal 1.6-2.3 [facility] Comment on above: Performed By: #### P T #### [facility] [address] [place] [address] Magnesium [Mass/Vol] 2.0 mg/dL 1.6 - 2 .3 mg/dL [facility] No Panel Informationon 10-22 Radiology Study observation (narrative) [facility] Work Phone: Test Performed by [facility], [address] [place] [address] [facility] Prothrombin Timeon 2 INR 1.1 Normal [...] [facility] [address] [place] [address] #### B2GPM, B2GPA, B2GPG #### [facility] [address] [place] [address] PT Coag (PPP) [Time] 11.8 s Normal 9.0-12.0 [facility] Comment on above: Result Comment: . Performed By: #### C A19O, LUPUS #### The performing lab is in the report. #### NSEO #### [facility] #### HEMDF, LDH3, BMP3, MG3, PT, CEA2 #### [facility] [address] [place] [address] #### B2GPM, B2GPA, B2GPG #### [facility] [address] [place] [address] Protime-INRon 10-22-2021 INR Coag (Bld) [Relative time] 1.1 {INR} [facility] Work Phone: Comment on above: Recommended [...] [Time] 11.8 s 9.0 - 12.0 s [facility] Work Phone: Comment on above: . Test Performed by [facility], [address] [place], [place] [address] [facility] Work Phone: VL Ankle Art Brachial Indice s Extremity Bilateralon 10-22-2021 [facility] Ankle Brachial Index Report Patient DO GurpreetB: 1950 Study 10/21/2021 Name: Andrew Gonzalez (71yrs) Date: Age: 71 Account: [id number] Gender: M Loc: 444W BP: Ordering Physician: Shruthi Malik Divisional Merchandising Manager: Rody Cross RDMS, RVT Interpreting Physician: Carina Call Location: [facility] Indications: Foot wounds. Originally ordered as a full PVR. Ordering INDUSTRIAL RETROFIT DESIGNER had to modify the order to ABIs [...] supine position. Images were obtained using a Spotwises vascular ultrasound machine. Arterial pressure indices: + [...] electronically signed by Carina Call 10/22/2021 13:21 [facility] Carina Call MD - 10/22/[address] [facility] Ankle Brachial Index Report Patient RADHA Sifuentes: 1950 Study 10/21/2021 Name: Andrew Gonzalez (71yrs) Date: Age: 71 Account: [id number] Gender: M Loc: 444W BP: Ordering Physician: Shruthi Malik Divisional Merchandising Manager: Rody Cross RDMS, RVT Interpreting Physician: Carina Call Location: [facility] Indications: Foot wounds. Originally ordered as a full PVR. Ordering INDUSTRIAL RETROFIT DESIGNER had to modify the order to ABIs [...] supine position. Images were obtained using a Spotwises vascular ultrasound machine. Arterial pressure indices: + [...] electronically signed by Carina Call 10/22/2021 13:21 [facility] Work Phone: [facility] Work Phone: Basic Metabolic Panelon 10-05 Calcium [Mass/Vol] 9.1 mg/dL Normal 8.4-10.4 [facility] Comment on above: Performed By: #### C OVAG #### [facility] [place] [address] [place] [address] Anion gap [Moles/Vol] 6 mmol/L Normal 3-13 [facility] Comment on above: Performed By: #### C OVAG #### [facility] [address] [place] [address] CO2 [Moles/Vol] 29 mmol/L Normal 22-30 [facility] Comment on above: Performed By: #### C OVAG #### [facility] [address] [place] [address] Creatinine [Mass/Vol] 0.90 mg/dL Normal 0.52-1.25 [facility] Comment on above: Performed By: #### C OVAG #### [facility] [address] [place] [address] GFR/1.73 sq M.predicted among blacks MDRD (S/P/Bld) [Vol rate/Area] mL/min/{1.73_m2} Normal >60 [facility] Comment on above: Performed By: #### C OVAG #### [facility] [address] [place] [address] GFR/1.73 sq M.predicted among non-blacks MDRD (S/P/Bld) [...] [facility] [address] [place] [address] Glucose [Mass/Vol] 106 mg/dL High 70-100 [facility] Comment on above: Performed By: #### C OVAG #### [facility] [address] [place] [address] Urea nitrogen [Mass/Vol] 18 mg/dL High 7-17 [facility] Comment on above: Performed By: #### C OVAG #### [facility] [address] [place] [address] Chloride [Moles/Vol] 105 mmol/L Normal 98-107 [facility] Comment on above: Performed By: #### C OVAG #### [facility] [address] [place] [address] Potassium [Moles/Vol] 4.3 mmol/L Normal 3.5-5.1 [facility] Comment on above: Performed By: #### C OVAG #### [facility] [address] [place] [address] Sodium [Moles/Vol] 139 mmol/L Normal 135-145 [facility] Comment on above: Performed By: #### C OVAG #### [facility] [address] [place] [address] Anion gap [Moles/Vol] 6 mmol/L 3 - 13 mmol/L [facility] Calcium [Mass/Vol] 9.1 mg/dL 8.4 - 10. 4 mg/dL [facility] Chloride [Moles/Vol] 105 mmol/L 98 - 10 7 mmol/L [facility] CO2 [Moles/Vol] 29 mmol/L 22 - 30 mmol/L [facility] Creatinine [Mass/Vol] 0.9 mg/dL 0.52 - 1.25 mg/dL [facility] EGFR IF NonAfrican Faroese 86.6 mL/min >60 [facility] Comment on above: KDIGO guidelines pro [...] - 17 mg/dL [facility] Test Performed by [facility], [address] [place], [place], [place] [id number] [place] [address] LAB [facility] C-Reactive Proteinon 022 CRP [Mass/Vol] 33.5 mg/L High 0.0-9.9 [facility] Comment on above: Result Comment: . Performed By: #### P T #### [facility] [address] [place] [address] CRP [Mass/Vol] 33.5 mg/L High 0.0 - 9.9 mg/L [facility] Comment on above: . Interpretation and review of laboratory results Abnormal [facility] Test Performed by [facility], [address] [place], [address] LAB [facility] CR Calcaneus 2+ Views Lefton 10-21-2021 CR Calcaneus 2+ Views Left Patient Name: [id number] Diagnostic Radiology ACCESSION EXAM DATE/TIME PROCEDURE ORDERING PROVIDER [id number] 10/21/2021 15:30 EDT CR Calcaneus 2+ Views [id number] -SHRUTHI MALIK Left CPT code 95228 Reason For Exam (CR Calcaneus 2+ Views [...] Radiology ACCESSION EXAM DATE/TIME PROCEDURE ORDERING PROVIDER [id number] 10/21/2021 08:16 EDT CR Chest 1 View Frontal [id number] MAY BOGGS CPT code 03166 Reason For Exam (CR Chest 1 View [...] [facility] [address] [place] [address] D-Dimer, Quantitativeon 10-05 D-Dimer, Quant 1.51 mg/L High <0.19 - 0.50 [facility] Comment on above: [facility] D-Dimer va lues of <0.50 mg/L FEU can be used in combination with a pre-test probability model (e.g. Well's) to exclude pulmonary embolism (PE) disease, as well as an aid in the diagnosis of deep vein thrombosis (DVT). Interpretation and review of laboratory results Abnormal [facility] Test Performed by [facility], [address] [place], [place], [place] [address] [facility] ED Provider Noteon 2 ED Provider Note [facility] ED EMERGENCY DEPARTMENT ENCOUNTER Pt Name: [...] (HCC) ? Kidney stone ? Neuropathy ? 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 Attends [employer] Services: Not on file ? Active Member [...] LUNGS: Respirations (more content not included)... Normal [facility] Hemogramon 10-21-2021 Erythrocyte distribution width (RBC) [Ratio] 17.3 % High 11.5-14.5 [facility] Comment on above: Performed By: #### C OVAG #### [facility] [address] [place] [address] Hematocrit (Bld) [Volume fraction] 33.6 % Low 40.0-52.0 [facility] Comment on above: Performed By: #### C OVAG #### [facility] [address] [place] [address] Hemoglobin (Bld) [Mass/Vol] 10.9 g/dL Low 13.0-18.0 [facility] Comment on above: Performed By: #### C OVAG #### [facility] [address] [place] [address] MCH (RBC) [Entitic mass] 27.8 pg Normal 26.0-34.0 [facility] Comment on above: Performed By: #### C OVAG #### [facility] [address] [place] [address] MCHC 32.5 % Normal 32.0-36.0 [facility] Comment on above: Performed By: #### C OVAG #### [facility] [address] [place] [address] MCV (RBC) [Entitic vol] 85.6 fL Normal 80.0-98.0 [facility] Comment on above: Performed By: #### C OVAG #### [facility] [address] [place] [address] Platelet mean volume (Bld) [Entitic vol] 7.7 fL Normal 7.4-12.4 [facility] Comment on above: Result Comment: MPV is a calculated measurement using platelet volume ratio. Performed By: #### C OVAG #### [facility] [address] [place] [address] Platelets (Bld) [#/Vol] 404 10*3/uL Normal 140-440 [facility] Comment on above: Performed By: #### C OVAG #### [facility] [address] [place] [address] RBC (Bld) [#/Vol] 3.93 10*6/uL Low 4.40-5.90 [facility] Comment on above: Performed By: #### C OVAG #### [facility] [address] [place] [address] WBC (Bld) [#/Vol] 11.6 10*3/uL High 3.6-10.7 [facility] Comment on above: Performed By: #### C OVAG #### [facility] [address] [place] [address] Hemogram (CBC)on 10-21-2021 Hematocrit (Bld) [Volume fraction] 33.6 % Low 40.0 - 52.0 % [facility] Hemoglobin (Bld) [Mass/Vol] 10.9 g/dL Low 13.0 - 18.0 g/dL [facility] Interpretation and review of laboratory results [...] vol] 7.7 fL 7.4 - 12.4 fL [facility] Comment on above: MPV is a calculated measurement using platelet volume ratio. Platelets (Bld) [#/Vol] 404 10*3/uL 140 - 440 10*3/uL [facility] RBC (Bld) [#/Vol] 3.93 10*6/uL Low 4.40 - 5.9 0 10*6/uL [facility] WBC (Bld) [#/Vol] 11.6 10*3/uL High 3.6 - 10.7 10*3/uL [facility] Test Performed by [facility], [address] [place], [place] [address] [facility] NM LUNG VENT/PERFUSION (VQ)o n 10-21-2021 Patient Name: ANDREW SIFUENTES Nuclear Medicine ACCESSION EXAM DATE/TIME PROCEDURE ORDERING PROVIDER [id number] 10/21/2021 07:55 EDT NM Pulmonary Perfusion [id number] -MAY CASH w/ Vent Aerosol CPT code 63687 A9567 Reason For Exam (NM Pulmonary Perfusion [...] JOHN Transcribed Date and Time: 10/21/2021 8:49 [facility] Henry Harvey MD - 10/21/2021 Patient Name: ANDREW SIFUENTES Nuclear Medicine ACCESSION EXAM DATE/TIME PROCEDURE ORDERING PROVIDER [id number] 10/21/2021 07:55 EDT NM Pulmonary Perfusion [id number] -MAY CASH w/ Vent Aerosol CPT code 74390 A9567 Reason For Exam (NM Pulmonary Perfusion [...] Transcribed Date and Time: 10/21/2021 8:49 [facility] Work Phone: NM LUNG VENT/PERFUSION (VQ)O rdered By: Henry Harvey on 10-21-2021 [facility] Work Phone: NM Pulmonary Perfusion w/ Ve nt Aerosol or Gason 10-21-2021 NM Pulmonary Perfusion w/ Vent Aerosol or Gas Patient Name: ANDREW SIFUENTES Nuclear Medicine ACCESSION EXAM DATE/TIME PROCEDURE ORDERING PROVIDER [id number] 10/21/2021 07:55 EDT NM Pulmonary Perfusion [id number] MAY BOGGS w/ Vent Aerosol CPT code 53336 A9567 Reason For Exam (NM Pulmonary Perfusion [...] Transcribed Date and Time: 10/21/2021 8:49 Normal [facility] No Panel Informationon 10-21 Radiology Study observation (narrative) [facility] Work Phone: Prothrombin Timeon 2 INR [...] [facility] [address] [place] [address] PT Coag (PPP) [Time] 11.5 s Normal 9.0-12.0 [facility] Comment on above: Result Comment: . Performed By: #### C OVAG #### [facility] [address] [place] [address] Protime-INRon 10-21-2021 INR Coag (Bld) [Relative time] 1.1 {INR} [facility] Comment on above: Recommended Anticoag ulant [...] s 9.0 - 12.0 s [facility] Comment on above: . Test Performed by [facility], [address] LAB [facility] Retic Count(%)on 10-21-2021 Retic Count(%) 1.6 Normal [facility] Comment on above: Result Comment: Newb orn < 5% Adults 0.5 - 1.5% Performed By: #### P T #### [facility] [address] [place] [address] Reticulocyteson 10-21-[address] [facility] Comment on above: [place] < 5% Adults 0.5 - 1.5% Test Performed by [facility], [address] LAB [facility] Sed Rateon 10-21-2021 Sed Rate 63 mm/h High 0-10 [facility] Comment on above: Performed By: #### P T #### [facility] [address] [place] [address] Sedimentation Rateon 022 Interpretation and review of laboratory results Abnormal [facility] Sed Rate 63 mm/h High 0 - 10 mm/h [facility] Test Performed by [facility], [address], [place], [place] [address] [facility] VL CARMELLA Upr/L Extremity Art 1 -2 Levelson 10-21-2021 VL CARMELLA Upr/L Extremity Art 1-2 Levels Patient Name: ANDREW SIFUENTES Ultrasound ACCESSION EXAM DATE/TIME PROCEDURE ORDERING PROVIDER [id number] 10/21/2021 16:12 EDT VL Upr/L Extremity Art [id number] -SHRUTHI MALIK 1-2 Levels CPT code 61141 Reason For Exam (VL Upr/L Extremity Art 1-2 Levels) both lower legs CARMELLA for both feet wounds. Report [facility] Ankle Brachial Index Report Patient Gurpreet : 1950 Study 10/21/2021 Name: Andrew Gonzalez (71yrs) Date: Age: 71 Account: [id number] Gender: M Loc: 444W BP: Ordering Physician: Shruthi Malik Divisional Merchandising Manager: Rody Cross RDMS, RVT Interpreting Physician: Carina Call Location: [facility] Indications: Foot wounds. Originally ordered as a full PVR. Ordering INDUSTRIAL RETROFIT DESIGNER had to modify the order to ABIs [...] supine position. Images were obtained using a Spotwises vascular ultrasound machine. Arterial pressure indices: + [...] CARINA HENNESSY Cardiovascular ACCESSION EXAM DATE/TIME PROCEDURE [id number] 10/21/2021 16:12 EDT VL Upr/L Extremity Art 1-2 Levels CPT code 64402 Reason For Exam (VL Upr/L Extremity Art 1-2 Levels) both lower legs CARMELLA for both feet wounds. Report [facility] Ankle Brachial Index Report Patient DO GurpreetB: 1950 Study 10/21/2021 Name: Andrwe Gonzalez (71yrs) Date: Age: 71 Account: [id number] Cardiovascular Report Gender: M Loc: 444W BP: Ordering Physician: Shruthi Malik Divisional Merchandising Manager: Rody Cross RDMS, RVT Interpreting Physician: Carina Call Location: [facility] Indications: Foot wounds. Originally ordered as a full PVR. Ordering INDUSTRIAL RETROFIT DESIGNER had to modify the order to ABIs [...] in th (more content not included)... Normal [facility] VL LOWER EXTREMITY BILATERAL VENOUS DUPLEXon 10-21-2021 [facility] Lower Extremity Venous Duplex Report Patient DO GurpreetB: 1950 Study 10/21/2021 Name: Andrew Gonzalez (71yrs) Date: Age: 71 Account: [id number] Gender: M Loc: 444 BP: Ordering Physician: May Cash Divisional Merchandising Manager: Rody Cross RDMS, RVT Interpreting Physician: Carina Call Location: [facility] Indications: Bilateral lower leg edema. CRITICAL RESULTS: [...] supine position. Images were obtained using a Spotwises vascular ultrasound machine. Venous flow and imaging: [...] +-------- --------+ + (more content not included)... [facility] Carina Call MD - 10/21/[address] [facility] Lower Extremity Venous Duplex Report Patient DO GurpreetB: 1950 Study 10/21/2021 Name: Andrew Gonzalez (71yrs) Date: Age: 71 Account: [id number] Gender: M Loc: 444 BP: Ordering Physician: May aCsh Divisional Merchandising Manager: Rody Cross RDMS, RVT Interpreting Physician: Carina Call Location: [facility] Indications: Bilateral lower leg edema. CRITICAL RESULTS: [...] supine position. Images were obtained using a Spotwises vascular ultrasound machine. Venous flow and imaging: [...] + + +----- (more content not included)... [facility] [employer] Work Phone: VL LOWER EXTREMITY BILATERAL VENOUS DUPLEXOrdered By: Carina Call on 10-21-2021 [facility] [employer] Work Phone: VL Venous Duplex US Lower Ex t Bilateralon 10-21-2021 VL Venous Duplex US Lower Ext Bilateral Patient Name: ANDREW SIFUENTES Ultrasound ACCESSION EXAM DATE/TIME PROCEDURE ORDERING PROVIDER [id number] 10/21/2021 09:53 EDT VL Venous Duplex [place] [id number] -MAY CASH Lower Ext Bilateral CPT code 80418 Reason For Exam (VL Venous Duplex US Lower Ext Bilateral) bilateral sqwelling redness Report [facility] Lower Extremity Venous Duplex Report Patient DO GurpreetB: 1950 Study 10/21/2021 Name: Andrew Gonzalez (71yrs) Date: Age: 71 Account: [id number] Gender: M Loc: 444 BP: Ordering Physician: May Cash Divisional Merchandising Manager: Rody Cross RDMS, RVT Interpreting Physician: Carina Call Location: [facility] Indications: Bilateral lower leg edema. CRITICAL RESULTS: [...] supine position. Images were obtained using a Spotwises vascular ultrasound machine. Venous flow and imaging: [...] + + (more content not included)... [facility] CALCANEUS LEFT (MIN 2 VIE WS)on 10-21-2021 Patient Name: ANDREW SIFUENTES Diagnostic Radiology ACCESSION EXAM DATE/TIME PROCEDURE ORDERING PROVIDER [id number] 10/21/2021 15:30 EDT CR Calcaneus 2+ Views [id number] -SHRUTHI MALIK Left CPT code 52070 Reason For Exam (CR Calcaneus 2+ Views [...] MD - 10/21/2021 Patient Name: [id number] Diagnostic Radiology ACCESSION EXAM DATE/TIME PROCEDURE ORDERING PROVIDER [id number] 10/21/2021 15:30 EDT CR Calcaneus 2+ Views [id number] -SHRUTHI MALIK Left CPT code 92278 Reason For Exam (CR Calcaneus 2+ Views [...] Radiology ACCESSION EXAM DATE/TIME PROCEDURE ORDERING PROVIDER [id number] 10/21/2021 08:16 EDT CR Chest 1 View Frontal [id number] FOSTER CPT code 96101 Reason For Exam (CR Chest 1 View [...] OSAMA Transcribed Date and Time: 10/21/2021 8:33 [facility] Venus Lyod MD - 10/21/2021 Patient Name: ANDREW SIFUENTES Diagnostic Radiology ACCESSION EXAM DATE/TIME PROCEDURE ORDERING PROVIDER [id number] 10/21/2021 08:16 EDT CR Chest 1 View Frontal [id number] CONTI CPT code 11528 Reason For Exam (CR Chest 1 View [...] RAMOS Transcribed Date and Time: 10/21/2021 8:33 [facility] Work Phone: XR Chest 1 VWOrdered By: Natalie Loyd on 10-21-2021 [facility] Work Phone: Basophil percentageon 2021 Chloride [Moles/Vol] 108 mmol/L 98-107 [facility] Work Phone: Glucose [Mass/Vol] 93 mg/dL 74-106 [facility] Work Phone: Potassium [Moles/Vol] 3.9 mmol/L 3.5-5.1 [facility] Work Phone: Sodium [Moles/Vol] 140 mmol/L 136-145 [facility] Work Phone: WBC (Bld) [#/Vol] 8.7 10*3/uL 4.4-11.0 [facility] Work Phone: Blood erythrocytes count (nu mber/volume)on 10-20-2021 RBC (Bld) [#/Vol] 3.63 10*6/uL 4.6-6.2 [facility] Work Phone: Blood hemoglobin measurement (mass/volume)on 10-20-2021 Hemoglobin (Bld) [Mass/Vol] 10.1 g/dL 13.0-16.5 [facility] Work Phone: Blood platelet mean volumeon 10-20-2021 Platelet mean volume (Bld) [Entitic vol] 9.8 fL 6.2-12.0 [facility] Work Phone: Determination of erythrocyte mean corpuscular volume (MCV)on 10-20-2021 MCV (RBC) [Entitic vol] 90.1 fL 80-94 [facility] Work Phone: Hematocrit Auto (Bld) [Volum e fraction]on 10-20-2021 Hematocrit (Bld) [Volume fraction] 32.7 % 40-54 [facility] Work Phone: Laboratory - Chemistry and C hemistry - challengeon 10-20-2021 CO2 [Moles/Vol] 25.0 mmol/L 21.0-32.0 [facility] [facility] Work Phone: Urea nitrogen/Creatinine [Mass ratio] 17.4 mg/mg 10-20 [facility] Work Phone: Laboratory - Hematology and Cell countson 10-20-2021 Erythrocyte distribution width (RBC) [Entitic vol] 52.1 fL 35.1-43.9 [facility] Work Phone: Erythrocyte distribution width (RBC) [Ratio] 15.6 % 11.6-14.6 [facility] Work Phone: MCH (RBC) [Entitic mass] 27.8 pg 27.0-32.0 [facility] Work Phone: MCHC Auto (RBC) [Mass/Vol]on 10-20-2021 MCHC (RBC) [Mass/Vol] 30.9 g/dL 32-36 [facility] Work Phone: No Panel Informationon 10-20 Estimated GFR (MDRD) Amer 133 mL/min >60 [facility] Work Phone: Comment on above: GFR Calc Estimated GFR (MDRD) Non-Af Amer 110 mL/min >60 [facility] Work Phone: Comment on above: Non- GFR Calc Platelets bldon 10-20-2021 Platelets (Bld) [#/Vol] 404 10*3/uL 150-450 [facility] Work Phone: Serum or plasma calcium oral urement (mass/volume)on 10-20-2021 Calcium [Mass/Vol] 9.1 mg/dL 8.5-10.1 [facility] Work Phone: Serum or plasma creatinine m easurement (mass/volume)on 10-20-2021 Creatinine [Mass/Vol] 0.75 mg/dL 0.70-1.30 [facility] Work Phone: Comment on above: The validity of the calculated GFR & GFRAA in patients over 70 years has not been determined. Clinical correlation is essential. Serum or plasma urea nitroge n measurement (mass/volume)on 10-20-2021 Urea nitrogen [Mass/Vol] 13 mg/dL 7-18 [facility] Work Phone: Thin prep Papanicolaou smear with manual screeningon 10-20-2021 Thin prep Papanicolaou smear with manual screening 7 5-15 [facility] Work Phone: CNPNon 10-17-[address] [facility] Absolute lymphocyte counton 09-19-2021 Lymphocytes Auto (Unsp spec) [#/Vol] 1.74 10*3/uL 0.83-4.51 [facility] Work Phone: Basophil percentageon 2021 Basophils/100 WBC (Bld) 0.6 % 0-1 [facility] Work Phone: Bilirubin [Mass/Vol] 0.30 mg/dL 0.20-1.00 [facility] Work Phone: Comment on above: For patients on eltr ombopag therapy, use of Dimension [place] TBIL is not recommended. Chloride [Moles/Vol] 105 mmol/L 98-107 [facility] Work Phone: Eosinophils/100 WBC (Bld) 3.5 % 0-5 [facility] Work Phone: Glucose [Mass/Vol] 91 mg/dL 74-106 [facility] Work Phone: Neutrophils (Bld) [#/Vol] 4.2 10*3/uL 2.0-7.7 [facility] Work Phone: Neutrophils/100 WBC (Bld) 62.6 % 47-70 [facility] Work Phone: [phone] Potassium [Moles/Vol] 3.8 mmol/L 3.5-5.1 [facility] Work Phone: [phone] Protein [Mass/Vol] 6.3 g/dL 6.4-8.2 [facility] Work Phone: [phone] Sodium [Moles/Vol] 139 mmol/L 136-145 [facility] Work Phone: WBC (Bld) [#/Vol] 6.6 10*3/uL 4.4-11.0 [facility] Work Phone: Blood erythrocytes count (nu mber/volume)on 09-19-2021 RBC (Bld) [#/Vol] 3.47 10*6/uL 4.6-6.2 [email or web address] Work Phone: Blood hemoglobin measurement (mass/volume)on 09-19-2021 Hemoglobin (Bld) [Mass/Vol] 10.2 g/dL 13.0-16.5 [facility] Work Phone: Blood lymphocytes/100 leukoc yteson 09-19-2021 Lymphocytes/100 WBC (Bld) 26.2 % 19-41 [facility] Work Phone: Blood monocytes/100 leukocyt eson 09-19-2021 Monocytes/100 WBC (Bld) 6.5 % 0-10 [facility] Work Phone: Blood platelet mean volumeon 09-19-2021 Platelet mean volume (Bld) [Entitic vol] 9.6 fL 6.2-12.0 [facility] Work Phone: Determination of erythrocyte mean corpuscular volume (MCV)on 09-19-2021 MCV (RBC) [Entitic vol] 94.8 fL 80-94 [facility] Work Phone: Hematocrit Auto (Bld) [Volum e fraction]on 09-19-2021 Hematocrit (Bld) [Volume fraction] 32.9 % 40-54 [facility] Work Phone: Laboratory - Chemistry and C hemistry - challengeon 09-19-2021 ALP [Catalytic activity/Vol] 109 U/L 45-117 [facility] Work Phone: ALT [Catalytic activity/Vol] 23 U/L 16-61 [facility] Work Phone: CO2 [Moles/Vol] 26.0 mmol/L 21.0-32.0 [facility] Work Phone: Globulin (S) [Mass/Vol] 3.5 g/dL 2.2-4.2 [facility] Work Phone: Urea nitrogen/Creatinine [Mass ratio] 15.3 mg/mg 10-20 [facility] Work Phone: Laboratory - Hematology and Cell countson 09-19-2021 Erythrocyte distribution width (RBC) [Entitic vol] 59.4 fL 35.1-43.9 [facility] Work Phone: Erythrocyte distribution width (RBC) [Ratio] 17.1 % 11.6-14.6 [facility] Work Phone: Immature granulocytes/100 WBC (Bld) 0.600 % 0.0-0.9 [facility] Work Phone: Comment on above: IG% - Immature Granu locytes (promyelocytes, myelocytes and metamyelocytes) > 1% indicates that a LEFT SHIFT is Present. MCH (RBC) [Entitic mass] 29.4 pg 27.0-32.0 [facility] Work Phone: Nucleated RBC/100 WBC (Bld) [Ratio] 0 % 0-5 [facility] Work Phone: MCHC Auto (RBC) [Mass/Vol]on 09-19-2021 MCHC (RBC) [Mass/Vol] 31.0 g/dL 32-36 [facility] Work Phone: No Panel Informationon 09-19 Estimated GFR (MDRD) Amer 175 mL/min >60 [facility] Work Phone: Comment on above: GFR Calc Estimated GFR (MDRD) Non-Af Amer 145 mL/min >60 [facility] Work Phone: Comment on above: Non- GFR Calc Platelets bldon 09-19-2021 Platelets (Bld) [#/Vol] 342 10*3/uL 150-450 [facility] Work Phone: Serum or plasma albumin oral urement (mass/volume)on 09-19-2021 Albumin [Mass/Vol] 2.8 g/dL 3.2-5.0 [facility] Work Phone: Serum or plasma albumin/glob ulin mass ratioon 09-19-2021 Albumin/Globulin [Mass ratio] 0.8 {ratio} 0.9-2.4 [facility] Work Phone: Serum or plasma calcium oral urement (mass/volume)on 09-19-2021 Calcium [Mass/Vol] 9.0 mg/dL 8.5-10.1 [facility] Work Phone: Serum or plasma creatinine m easurement (mass/volume)on 09-19-2021 Creatinine [Mass/Vol] 0.59 mg/dL 0.70-1.30 [facility] Work Phone: Comment on above: The validity of the calculated GFR & GFRAA in patients over 70 years has not been determined. Clinical correlation is essential. Serum or plasma urea nitroge n measurement (mass/volume)on 09-19-2021 Urea nitrogen [Mass/Vol] 9 mg/dL 7-18 [facility] Work Phone: Thin prep Papanicolaou smear with manual screeningon 09-19-2021 Thin prep Papanicolaou smear with manual screening 12 U/L 15-37 [facility] Work Phone: Thin prep Papanicolaou smear with manual screening 8 5-15 [facility] Work Phone: OPERATIVE NOon 08-22-[address] [facility] Basic metabolic 2000 panelon 08-19-2021 Anion gap [Moles/Vol] 10 mmol/L Normal 9-18 [facility] Comment on above: Order Comment: Speci men Type: BLOOD SPECIMENOrdering Facility: [facility] Address: [address] [place] [address] Performed By: #### 2 4321-2 ####[facility] LABORATORYCLIA [id number] [place] [address] [place] Calcium [Mass/Vol] 8.6 mg/dL Normal 8.5-10.2 [facility] Comment on above: Order Comment: Speci men Type: BLOOD SPECIMENOrdering Facility: [facility] Address: [address] [place] [address] Performed By: #### 2 4321-2 ####[facility]ORATORYCLIA [id number] [place] [address] [place] Chloride [Moles/Vol] 99 mmol/L Normal 97-105 [facility] Comment on above: Order Comment: Speci men Type: BLOOD SPECIMENOrdering Facility: [facility] Address: [address] [place] [address] Performed By: #### 2 4321-2 ####[facility]ORATORYCLIA [id number] [place] [address] [place] CO2 [Moles/Vol] 29 mmol/L Normal 22-30 [facility] Comment on above: Order Comment: Speci men Type: BLOOD SPECIMENOrdering Facility: [facility] Address: [address] [place] [address] Performed By: #### 2 4321-2 ####[facility]ORATORYCLIA [id number] [place] [address] [place] Creatinine [Mass/Vol] 0.58 mg/dL Low 0.73-1.22 [facility] Comment on above: Order Comment: Speci men Type: BLOOD SPECIMENOrdering Facility: [facility] Address: [address] [place] [address] Performed By: #### 2 4321-2 ####[facility]ORATORYCLIA [id number] [place] [address] [place] ESTIMATED GLOMERULAR FILTRATION RATE 106 mL/min/1.73m??? Normal >=60 [facility] Comment on above: Order Comment: Shira feldman Type: BLOOD SPECIMENOrdering Facility: [facility] Address: [address] [place] [address] Result Comment: Luzmaria mated Glomerular Filtration Rate [...] By: #### 2 4321-2 ####[facility] HOSPITALIA [id number] [place] [address] [place] Glucose [Mass/Vol] 101 mg/dL High 74-99 [facility] Comment on above: Order Comment: Shira feldman Type: BLOOD SPECIMENOrdering Facility: [facility] Address: [address] [place] [address] Result Comment: The [place] [employer] (ADA) provides guidance for cutoff [...] Standards of Medical Care in Diabetes 2016, [place] [employer]. Diabetes Care. 2016.39(Suppl 1). Performed By: #### 2 4321-2 ####[facility]ORATORYCLIA [id number] [place] [id number] [place] Potassium [Moles/Vol] 3.5 mmol/L Low 3.7-5.1 [facility] Comment on above: Order Comment: Speci men Type: BLOOD SPECIMENOrdering Facility: [facility] Address: [address] [place] [address] Performed By: #### 2 4321-2 ####[facility]ORATORYCLIA [id number] [address] STATES OF [facility] Sodium [Moles/Vol] 138 mmol/L Normal 136-144 [facility] Comment on above: Order Comment: Speci men Type: BLOOD SPECIMENOrdering Facility: [facility] Address: [address] [place] [address] Performed By: #### 2 4321-2 ####[facility]ORATORYCLIA [id number] [address] STATES OF [facility] Urea nitrogen [Mass/Vol] 11 mg/dL Normal 9-24 [facility] Comment on above: Order Comment: Speci men Type: BLOOD SPECIMENOrdering Facility: [facility] Address: [address] [place] [address] Performed By: #### 2 4321-2 ####[facility]ORATORYCLIA [id number] [address] STATES OF [facility] CASE MANAGEMon 08-19-[address] [facility] CBC W Auto Differential pane l (Bld)on 08-19-2021 Basophils (Bld) [#/Vol] 0.03 10*3/uL Normal <0.11 [facility] Comment on above: Order Comment: Speci men Type: BLOOD SPECIMENOrdering Facility: [facility] Address: [address] [place] [address] Performed By: #### 5 7021-8 ####[facility]ORATORYCLIA [id number] [address] STATES [facility] Basophils/100 WBC (Bld) 0.4 % Normal [facility] Comment on above: Order Comment: Speci men Type: BLOOD SPECIMENOrdering Facility: [facility] Address: [address] [place] [address] Performed By: #### 5 7021-8 ####[facility]ORATORYCLIA [id number] [address] Differential cell count method Nom (Bld) Auto Normal [facility] Comment on above: Order Comment: Speci men Type: BLOOD SPECIMENOrdering Facility: [facility] Address: [address] [place] [address] Performed By: #### 5 7021-8 ####[facility]ATORYCLIA [id number] [address] Eosinophils (Bld) [#/Vol] 0.24 10*3/uL Normal <0.46 [facility] Comment on above: Order Comment: Speci men Type: BLOOD SPECIMENOrdering Facility: [facility] Address: [address] [place] [address] Performed By: #### 5 7021-8 ####[facility]ATORYCLIA [id number] [address] Eosinophils/100 WBC (Bld) 3.1 % Normal [facility] Comment on above: Order Comment: Speci men Type: BLOOD SPECIMENOrdering Facility: [facility] Address: [address] [place] [address] Performed By: #### 5 7021-8 ####[facility]ORATORYCLIA [id number] [address] Erythrocyte distribution width (RBC) [Ratio] 17.5 % High 11.5-15.0 [facility] Comment on above: Order Comment: Speci men Type: BLOOD SPECIMENOrdering Facility: [facility] Address: [address] [place] [address] Performed By: #### 5 7021-8 ####[facility]ORATORYCLIA [id number] [address] Hematocrit (Bld) [Volume fraction] 30.2 % Low 39.0-51.0 [facility] Comment on above: Order Comment: Speci men Type: BLOOD SPECIMENOrdering Facility: [facility] Address: [address] [place] [address] Performed By: #### 5 7021-8 ####[facility]ATORYCLIA [id number] [address] Hemoglobin (Bld) [Mass/Vol] 9.6 g/dL Low 13.0-17.0 [facility] Comment on above: Order Comment: Speci men Type: BLOOD SPECIMENOrdering Facility: [facility] Address: [address] [place] [address] Performed By: #### 5 7021-8 ####[facility]ATORYCLIA [id number] [address] IMMATURE GRAN % 0.4 % Normal [facility] Comment on above: Order Comment: Speci men Type: BLOOD SPECIMENOrdering Facility: [facility] Address: [address] [place] [address] Performed By: #### 5 7021-8 ####[facility]ATORYCLIA [id number] [address] IMMATURE GRAN ABS 0.03 k/uL Normal <0.10 [facility] Comment on above: Order Comment: Speci men Type: BLOOD SPECIMENOrdering Facility: [facility] Address: [address] [place] [address] Performed By: #### 5 7021-8 ####[facility]ATORYCLIA [id number] [address] [place] Lymphocytes (Bld) [#/Vol] 1.71 10*3/uL Normal 1.00-4.00 [facility] Comment on above: Order Comment: Speci men Type: BLOOD SPECIMENOrdering Facility: [facility] Address: [address] [place] [address] Performed By: #### 5 7021-8 ####[facility]ATORYCLIA [id number] [address] Lymphocytes/100 WBC (Bld) 22.2 % Normal [facility] Comment on above: Order Comment: Speci men Type: BLOOD SPECIMENOrdering Facility: [facility] Address: [address] [place] [address] Performed By: #### 5 7021-8 ####[facility]ATORYCLIA [id number] [address] MCH (RBC) [Entitic mass] 29.4 pg Normal 26.0-34.0 [facility] Comment on above: Order Comment: Speci men Type: BLOOD SPECIMENOrdering Facility: [facility] Address: [address] [place] [address] Performed By: #### 5 7021-8 ####[facility]ATORYCLIA [id number] [address] STATES [facility] MCHC (RBC) [Mass/Vol] 31.8 g/dL Normal 30.5-36.0 [facility] Comment on above: Order Comment: Speci men Type: BLOOD SPECIMENOrdering Facility: [facility] Address: [address] [place] [address] Performed By: #### 5 7021-8 ####[facility]ATORYCLIA [id number] [address] MCV (RBC) [Entitic vol] 92.6 fL Normal 80.0-100.0 [facility] Comment on above: Order Comment: Speci men Type: BLOOD SPECIMENOrdering Facility: [facility] Address: [address] [place] [address] Performed By: #### 5 7021-8 ####[facility]ATORYCLIA [id number] [address] Monocytes (Bld) [#/Vol] 0.50 10*3/uL Normal <0.87 [facility] Comment on above: Order Comment: Speci men Type: BLOOD SPECIMENOrdering Facility: [facility] Address: [address] [place] [address] Performed By: #### 5 7021-8 ####[facility]ATORYCLIA [id number] [place] [address] [place] Monocytes/100 WBC (Bld) 6.5 % Normal [facility] Comment on above: Order Comment: Speci men Type: BLOOD SPECIMENOrdering Facility: [facility] Address: [address] [place] [address] Performed By: #### 5 7021-8 ####[facility]ATORYCLIA [id number] [place] [address] [place] Neutrophils (Bld) [#/Vol] 5.20 10*3/uL Normal 1.45-7.50 [facility] Comment on above: Order Comment: Speci men Type: BLOOD SPECIMENOrdering Facility: [facility] Address: [address] [place] [address] Performed By: #### 5 7021-8 ####[facility]ATORYCLIA [id number] [address] [place] Neutrophils/100 WBC (Bld) 67.4 % Normal [facility] Comment on above: Order Comment: Speci men Type: BLOOD SPECIMENOrdering Facility: [facility] Address: [address] [place] [address] Performed By: #### 5 7021-8 ####[facility]ORYCLIA [id number] [place] [address] [place] Nucleated RBC (Bld) [#/Vol] 10*3/uL Normal <0.01 [facility] Comment on above: Order Comment: Speci men Type: BLOOD SPECIMENOrdering Facility: [facility] Address: [address] [place] [address] Performed By: #### 5 7021-8 ####[facility]ATORYCLIA [id number] [place] [address] [place] Nucleated RBC/100 WBC (Bld) [Ratio] 0.0 /[address] [facility] Comment on above: Order Comment: Speci men Type: BLOOD SPECIMENOrdering Facility: [facility] Address: [address] [place] [address] Performed By: #### 5 7021-8 ####[facility]ATORYCLIA [id number] [address] Platelet mean volume (Bld) [Entitic vol] 8.9 fL Low 9.0-12.7 [facility] Comment on above: Order Comment: Speci men Type: BLOOD SPECIMENOrdering Facility: [facility] Address: [address] [place] [address] Performed By: #### 5 7021-8 ####[facility]ATORYCLIA [id number] [address] [place] Platelets (Bld) [#/Vol] 408 10*3/uL High 150-400 [facility] Comment on above: Order Comment: Speci men Type: BLOOD SPECIMENOrdering Facility: [facility] Address: [address] [place] [address] Performed By: #### 5 7021-8 ####[facility]ATORYCLIA [id number] [address] [place] RBC (Bld) [#/Vol] 3.26 10*6/uL Low 4.20-6.00 [facility] Comment on above: Order Comment: Speci men Type: BLOOD SPECIMENOrdering Facility: [facility] Address: [address] [place] [address] Performed By: #### 5 7021-8 ####[facility]ATORYCLIA [id number] [address] [place] WBC (Bld) [#/Vol] 7.71 10*3/uL Normal 3.70-11.00 [facility] Comment on above: Order Comment: Speci men Type: BLOOD SPECIMENOrdering Facility: [facility] Address: [address] [place] [address] Performed By: #### 5 7021-8 ####[facility]ATORYCLIA [id number] [address] [place] CNDSon 08-19-[address] [facility] CONSULT PROGon 08-19-[address] [facility] THERAPY NTon 08-19-[address] [facility] Basic metabolic 2000 panelon 08-18-2021 Anion gap [Moles/Vol] 11 mmol/L Normal 9-18 [facility] Comment on above: Order Comment: Speci men Type: BLOOD SPECIMENOrdering Facility: [facility] Address: [address] [place] [address] Performed By: #### 2 4321-2 ####[facility]ATORYCLIA [id number] [place] [address] [place] Calcium [Mass/Vol] 8.6 mg/dL Normal 8.5-10.2 [facility] Comment on above: Order Comment: Speci men Type: BLOOD SPECIMENOrdering Facility: [facility] Address: [address] [place] [address] Performed By: #### 2 4321-2 ####[facility]ATORYCLIA [id number] [place] [address] [place] Chloride [Moles/Vol] 98 mmol/L Normal 97-105 [facility] Comment on above: Order Comment: Speci men Type: BLOOD SPECIMENOrdering Facility: [facility] Address: [address] [place] [address] Performed By: #### 2 4321-2 ####[facility]ATORYCLIA [id number] [place] [address] [place] CO2 [Moles/Vol] 28 mmol/L Normal 22-30 [facility] Comment on above: Order Comment: Speci men Type: BLOOD SPECIMENOrdering Facility: [facility] Address: [address] [place] [address] Performed By: #### 2 4321-2 ####[facility]ATORYCLIA [id number] [place] [address] [place] Creatinine [Mass/Vol] 0.56 mg/dL Low 0.73-1.22 [facility] Comment on above: Order Comment: Speci men Type: BLOOD SPECIMENOrdering Facility: [facility] Address: [address] [place] [address] Performed By: #### 2 4321-2 ####[facility] HOSPITALIA [id number] [address] ESTIMATED GLOMERULAR FILTRATION RATE 107 mL/min/1.73m??? Normal >=60 [facility] Comment on above: Order Comment: Shira francia Type: BLOOD SPECIMENOrdering Facility: [facility] Address: [address] [place] [address] Result Comment: Luzmaria mated Glomerular Filtration Rate [...] By: #### 2 4321-2 ####[facility] HOSPITALIA [id number] [place] [address] [place] Glucose [Mass/Vol] 113 mg/dL High 74-99 [facility] Comment on above: Order Comment: Johncara feldman Type: BLOOD SPECIMENOrdering Facility: [facility] Address: [address] [place] [address] Result Comment: The [place] [employer] (ADA) provides guidance for cutoff [...] Standards of Medical Care in Diabetes 2016, [place] [employer]. Diabetes Care. 2016.39(Suppl 1). Performed By: #### 2 4321-2 ####[facility]ATORYCLIA [id number] [place] [address] [place] Potassium [Moles/Vol] 3.5 mmol/L Low 3.7-5.1 [facility] Comment on above: Order Comment: Speci men Type: BLOOD SPECIMENOrdering Facility: [facility] Address: [address] [place] [address] Performed By: #### 2 4321-2 ####[facility]ATORYCLIA [id number] [address] [place] Sodium [Moles/Vol] 137 mmol/L Normal 136-144 [facility] Comment on above: Order Comment: Speci men Type: BLOOD SPECIMENOrdering Facility: [facility] Address: [address] [place] [address] Performed By: #### 2 4321-2 ####[facility]ATORYCLIA [id number] [address] STATES [facility] Urea nitrogen [Mass/Vol] 10 mg/dL Normal 9-24 [facility] Comment on above: Order Comment: Speci men Type: BLOOD SPECIMENOrdering Facility: [facility] Address: [address] [place] [address] Performed By: #### 2 4321-2 ####[facility]ATORYCLIA [id number] [address] [place] CBC W Auto Differential pane l (Bld)on 08-18-2021 Basophils (Bld) [#/Vol] 10*3/uL Normal <0.11 [facility] Comment on above: Order Comment: Speci men Type: BLOOD SPECIMENOrdering Facility: [facility] Address: [address] [place] [address] Performed By: #### 5 7021-8 ####[facility]ATORYCLIA [id number] [address] [place] Basophils/100 WBC (Bld) 0.3 % Normal [facility] Comment on above: Order Comment: Speci men Type: BLOOD SPECIMENOrdering Facility: [facility] Address: [address] [place] [address] Performed By: #### 5 7021-8 ####[facility]ATORYCLIA [id number] [address] Differential cell count method Nom (Bld) Auto Normal [facility] Comment on above: Order Comment: Speci men Type: BLOOD SPECIMENOrdering Facility: [facility] Address: [address] [place] [address] Performed By: #### 5 7021-8 ####[facility]ATORYCLIA [id number] [address] [place] Eosinophils (Bld) [#/Vol] 0.37 10*3/uL Normal <0.46 [facility] Comment on above: Order Comment: Speci men Type: BLOOD SPECIMENOrdering Facility: [facility] Address: [address] [place] [address] Performed By: #### 5 7021-8 ####[facility]ATORYCLIA [id number] [address] Eosinophils/100 WBC (Bld) 4.8 % Normal [facility] Comment on above: Order Comment: Speci men Type: BLOOD SPECIMENOrdering Facility: [facility] Address: [address] [place] [address] Performed By: #### 5 7021-8 ####[facility]ATORYCLIA [id number] [address] Erythrocyte distribution width (RBC) [Ratio] 17.5 % High 11.5-15.0 [facility] Comment on above: Order Comment: Speci men Type: BLOOD SPECIMENOrdering Facility: [facility] Address: [address] [place] [address] Performed By: #### 5 7021-8 ####[facility]ATORYCLIA [id number] [address] [place] Hematocrit (Bld) [Volume fraction] 30.2 % Low 39.0-51.0 [facility] Comment on above: Order Comment: Speci men Type: BLOOD SPECIMENOrdering Facility: [facility] Address: [address] [place] [address] Performed By: #### 5 7021-8 ####[facility]ATORYCLIA [id number] [address] OF [facility] Hemoglobin (Bld) [Mass/Vol] 9.5 g/dL Low 13.0-17.0 [facility] Comment on above: Order Comment: Speci men Type: BLOOD SPECIMENOrdering Facility: [facility] Address: [address] [place] [address] Performed By: #### 5 7021-8 ####[facility]ATORYCLIA [id number] [address] IMMATURE GRAN % 0.4 % Normal [facility] Comment on above: Order Comment: Speci men Type: BLOOD SPECIMENOrdering Facility: [facility] Address: [address] [place] [address] Performed By: #### 5 7021-8 ####[facility]ATORYCLIA [id number] [address] IMMATURE GRAN ABS 0.03 k/uL Normal <0.10 [facility] Comment on above: Order Comment: Speci men Type: BLOOD SPECIMENOrdering Facility: [facility] Address: [address] [place] [address] Performed By: #### 5 7021-8 ####[facility]ATORYCLIA [id number] [address] [place] Lymphocytes (Bld) [#/Vol] 1.85 10*3/uL Normal 1.00-4.00 [facility] Comment on above: Order Comment: Speci men Type: BLOOD SPECIMENOrdering Facility: [facility] Address: [address] [place] [address] Performed By: #### 5 7021-8 ####[facility]ATORYCLIA [id number] [address] Lymphocytes/100 WBC (Bld) 23.8 % Normal [facility] Comment on above: Order Comment: Speci men Type: BLOOD SPECIMENOrdering Facility: [facility] Address: [address] [place] [address] Performed By: #### 5 7021-8 ####[facility]ATORYCLIA [id number] [address] MCH (RBC) [Entitic mass] 29.5 pg Normal 26.0-34.0 [facility] Comment on above: Order Comment: Speci men Type: BLOOD SPECIMENOrdering Facility: [facility] Address: [address] [place] [address] Performed By: #### 5 7021-8 ####[facility]ATORYCLIA [id number] [address] MCHC (RBC) [Mass/Vol] 31.5 g/dL Normal 30.5-36.0 [facility] Comment on above: Order Comment: Speci men Type: BLOOD SPECIMENOrdering Facility: [facility] Address: [address] [place] [address] Performed By: #### 5 7021-8 ####[facility]ATORYCLIA [id number] [address] MCV (RBC) [Entitic vol] 93.8 fL Normal 80.0-100.0 [facility] Comment on above: Order Comment: Speci men Type: BLOOD SPECIMENOrdering Facility: [facility] Address: [address] [place] [address] Performed By: #### 5 7021-8 ####[facility]ATORYCLIA [id number] [address] Monocytes (Bld) [#/Vol] 0.49 10*3/uL Normal <0.87 [facility] Comment on above: Order Comment: Speci men Type: BLOOD SPECIMENOrdering Facility: [facility] Address: [address] [place] [address] Performed By: #### 5 7021-8 ####[facility]ATORYCLIA [id number] [address] [place] Monocytes/100 WBC (Bld) 6.3 % Normal [facility] Comment on above: Order Comment: Speci men Type: BLOOD SPECIMENOrdering Facility: [facility] Address: [address] [place] [address] Performed By: #### 5 7021-8 ####[facility]ORATORYCLIA [id number] [place] [address] [place] Neutrophils (Bld) [#/Vol] 5.00 10*3/uL Normal 1.45-7.50 [facility] Comment on above: Order Comment: Speci men Type: BLOOD SPECIMENOrdering Facility: [facility] Address: [address] [place] [address] Performed By: #### 5 7021-8 ####[facility]ATORYCLIA [id number] [address] Neutrophils/100 WBC (Bld) 64.4 % Normal [facility] Comment on above: Order Comment: Speci men Type: BLOOD SPECIMENOrdering Facility: [facility] Address: [address] [place] [address] Performed By: #### 5 7021-8 ####[facility]ATORYCLIA [id number] [address] [place] Nucleated RBC (Bld) [#/Vol] 10*3/uL Normal <0.01 [facility] Comment on above: Order Comment: Speci men Type: BLOOD SPECIMENOrdering Facility: [facility] Address: [address] [place] [address] Performed By: #### 5 7021-8 ####[facility]ATORYCLIA [id number] [address] [place] Nucleated RBC/100 WBC (Bld) [Ratio] 0.0 /[address] [facility] Comment on above: Order Comment: Speci men Type: BLOOD SPECIMENOrdering Facility: [facility] Address: [address] [place], [place] [address] Performed By: #### 5 7021-8 ####[facility]ATORYCLIA [id number] [address] Platelet mean volume (Bld) [Entitic vol] 9.1 fL Normal 9.0-12.7 [facility] Comment on above: Order Comment: Speci men Type: BLOOD SPECIMENOrdering Facility: [facility] Address: [address] [place], [place] [address] Performed By: #### 5 7021-8 ####[facility]ATORYCLIA [id number] [address] [place] Platelets (Bld) [#/Vol] 391 10*3/uL Normal 150-400 [facility] Comment on above: Order Comment: Speci men Type: BLOOD SPECIMENOrdering Facility: [facility] Address: [address] [place] [address] Performed By: #### 5 7021-8 ####[facility]ATORYCLIA [id number] [place] [address] [place] RBC (Bld) [#/Vol] 3.22 10*6/uL Low 4.20-6.00 [facility] Comment on above: Order Comment: Speci men Type: BLOOD SPECIMENOrdering Facility: [facility] Address: [address] [place], [place] [address] Performed By: #### 5 7021-8 ####[facility]ATORYCLIA [id number] [address] [place] WBC (Bld) [#/Vol] 7.76 10*3/uL Normal 3.70-11.00 [facility] Comment on above: Order Comment: Speci men Type: BLOOD SPECIMENOrdering Facility: [facility] Address: [address] [place] [address] Performed By: #### 5 7021-8 ####[facility]ATORYCLIA [id number] [address] [place] CONSULT PROGon 08-18-[address] [facility] CASE MANAGEMon 08-17-[address] [facility] CBC W Auto Differential pane l (Bld)on 08-17-2021 Basophils (Bld) [#/Vol] 0.04 10*3/uL Normal <0.11 [facility] Comment on above: Order Comment: Speci men Type: BLOOD SPECIMENOrdering Facility: [facility] Address: [address] [place] [address] Performed By: #### 5 7021-8 ####[facility]ATORYCLIA [id number] [address] [place] Basophils/100 WBC (Bld) 0.5 % Normal [facility] Comment on above: Order Comment: Speci men Type: BLOOD SPECIMENOrdering Facility: [facility] Address: [address] [place] [address] Performed By: #### 5 7021-8 ####[facility]ATORYCLIA [id number] [address] [place] Differential cell count method Nom (Bld) Auto Normal [facility] Comment on above: Order Comment: Speci men Type: BLOOD SPECIMENOrdering Facility: [facility] Address: [address] [place] [address] Performed By: #### 5 7021-8 ####[facility]ATORYCLIA [id number] [place] [address] [place] Eosinophils (Bld) [#/Vol] 0.31 10*3/uL Normal <0.46 [facility] Comment on above: Order Comment: Speci men Type: BLOOD SPECIMENOrdering Facility: [facility] Address: [address] [place] [address] Performed By: #### 5 7021-8 ####[facility]ATORYCLIA [id number] [address] [place] Eosinophils/100 WBC (Bld) 3.7 % Normal [facility] Comment on above: Order Comment: Speci men Type: BLOOD SPECIMENOrdering Facility: [facility] Address: [address] [place] [address] Performed By: #### 5 7021-8 ####[facility]ATORYCLIA [id number] [address] Erythrocyte distribution width (RBC) [Ratio] 17.4 % High 11.5-15.0 [facility] Comment on above: Order Comment: Speci men Type: BLOOD SPECIMENOrdering Facility: [facility] Address: [address] [place] [address] Performed By: #### 5 7021-8 ####[facility]ATORYCLIA [id number] [address] Hematocrit (Bld) [Volume fraction] 30.6 % Low 39.0-51.0 [facility] Comment on above: Order Comment: Speci men Type: BLOOD SPECIMENOrdering Facility: [facility] Address: [address] [place] [address] Performed By: #### 5 7021-8 ####[facility]ATORYCLIA [id number] [address] [place] Hemoglobin (Bld) [Mass/Vol] 9.6 g/dL Low 13.0-17.0 [facility] Comment on above: Order Comment: Speci men Type: BLOOD SPECIMENOrdering Facility: [facility] Address: [address] [place] [address] Performed By: #### 5 7021-8 ####[facility]ATORYCLIA [id number] [address] [place] IMMATURE GRAN % 0.2 % Normal [facility] Comment on above: Order Comment: Speci men Type: BLOOD SPECIMENOrdering Facility: [facility] Address: [address] [place] [address] Performed By: #### 5 7021-8 ####[facility]ATORYCLIA [id number] [address] IMMATURE GRAN ABS <0.03 Normal <0.10 [facility] Comment on above: Order Comment: Speci men Type: BLOOD SPECIMENOrdering Facility: [facility] Address: [address] [place] [address] Performed By: #### 5 7021-8 ####[facility]ATORYCLIA [id number] [address] [place] Lymphocytes (Bld) [#/Vol] 1.66 10*3/uL Normal 1.00-4.00 [facility] Comment on above: Order Comment: Speci men Type: BLOOD SPECIMENOrdering Facility: [facility] Address: [address] [place] [address] Performed By: #### 5 7021-8 ####[facility]ATORYCLIA [id number] [address] Lymphocytes/100 WBC (Bld) 19.9 % Normal [facility] Comment on above: Order Comment: Speci men Type: BLOOD SPECIMENOrdering Facility: [facility] Address: [address] [place] [address] Performed By: #### 5 7021-8 ####[facility]ATORYCLIA [id number] [address] MCH (RBC) [Entitic mass] 28.9 pg Normal 26.0-34.0 [facility] Comment on above: Order Comment: Speci men Type: BLOOD SPECIMENOrdering Facility: [facility] Address: [address] [place] [address] Performed By: #### 5 7021-8 ####[facility]ATORYCLIA [id number] [address] MCHC (RBC) [Mass/Vol] 31.4 g/dL Normal 30.5-36.0 [facility] Comment on above: Order Comment: Speci men Type: BLOOD SPECIMENOrdering Facility: [facility] Address: [address] [place] [address] Performed By: #### 5 7021-8 ####[facility]ATORYCLIA [id number] [place] [address] [place] MCV (RBC) [Entitic vol] 92.2 fL Normal 80.0-100.0 [facility] Comment on above: Order Comment: Speci men Type: BLOOD SPECIMENOrdering Facility: [facility] Address: [address] [place] [address] Performed By: #### 5 7021-8 ####[facility]ATORYCLIA [id number] [address] [place] Monocytes (Bld) [#/Vol] 0.52 10*3/uL Normal <0.87 [facility] Comment on above: Order Comment: Speci men Type: BLOOD SPECIMENOrdering Facility: [facility] Address: [address] [place] [address] Performed By: #### 5 7021-8 ####[facility]ATORYCLIA [id number] [address] STATES [facility] Monocytes/100 WBC (Bld) 6.2 % Normal [facility] Comment on above: Order Comment: Speci men Type: BLOOD SPECIMENOrdering Facility: [facility] Address: [address] [place] [address] Performed By: #### 5 7021-8 ####[facility]ATORYCLIA [id number] [address] [place] Neutrophils (Bld) [#/Vol] 5.78 10*3/uL Normal 1.45-7.50 [facility] Comment on above: Order Comment: Speci men Type: BLOOD SPECIMENOrdering Facility: [facility] Address: [address] [place] [address] Performed By: #### 5 7021-8 ####[facility]ATORYCLIA [id number] [address] [place] Neutrophils/100 WBC (Bld) 69.5 % Normal [facility] Comment on above: Order Comment: Speci men Type: BLOOD SPECIMENOrdering Facility: [facility] Address: [address] Performed By: #### 5 7021-8 ####[facility]ATORYCLIA [id number] [address] Nucleated RBC (Bld) [#/Vol] 10*3/uL Normal <0.01 [facility] Comment on above: Order Comment: Speci men Type: BLOOD SPECIMENOrdering Facility: [facility] Address: [address] [place], [place] [address] Performed By: #### 5 7021-8 ####[facility]ATORYCLIA [id number] [address] Nucleated RBC/100 WBC (Bld) [Ratio] 0.0 /[address] [facility] Comment on above: Order Comment: Speci men Type: BLOOD SPECIMENOrdering Facility: [facility] Address: [address] [place], [place] [address] Performed By: #### 5 7021-8 ####[facility]ATORYCLIA [id number] [address] STATES [facility] Platelet mean volume (Bld) [Entitic vol] 9.2 fL Normal 9.0-12.7 [facility] Comment on above: Order Comment: Speci men Type: BLOOD SPECIMENOrdering Facility: [facility] Address: [address] [place], [place] [address] Performed By: #### 5 7021-8 ####[facility]ATORYCLIA [id number] [address] STATES [facility] Platelets (Bld) [#/Vol] 379 10*3/uL Normal 150-400 [facility] Comment on above: Order Comment: Speci men Type: BLOOD SPECIMENOrdering Facility: [facility] Address: [address] [place], [place] [address] Performed By: #### 5 7021-8 ####[facility]ORATORYCLIA [id number] [place] [address] [place] RBC (Bld) [#/Vol] 3.32 10*6/uL Low 4.20-6.00 [facility] Comment on above: Order Comment: Speci men Type: BLOOD SPECIMENOrdering Facility: [facility] Address: [address] [place] [address] Performed By: #### 5 7021-8 ####[facility]ATORYCLIA [id number] [place] [address] [place] WBC (Bld) [#/Vol] 8.33 10*3/uL Normal 3.70-11.00 [facility] Comment on above: Order Comment: Speci men Type: BLOOD SPECIMENOrdering Facility: [facility] Address: [address] [place] [address] Performed By: #### 5 7021-8 ####[facility]ATORYCLIA [id number] [address] OF [facility] CONSULT PROGon 08-17-[address] [facility] NUTRITIONon 08-17-[address] [facility] Basic metabolic 2000 panelon 08-16-2021 Anion gap [Moles/Vol] 14 mmol/L Normal 9-18 [facility] Comment on above: Order Comment: Speci men Type: BLOOD SPECIMENOrdering Facility: [facility] Address: [address] [place] [address] Performed By: #### 2 4321-2, 22216-8 ####[facility]ATORYCLIA [id number] [address] [place] Calcium [Mass/Vol] 8.8 mg/dL Normal 8.5-10.2 [facility] Comment on above: Order Comment: Speci men Type: BLOOD SPECIMENOrdering Facility: [facility] Address: [address] [place] [address] Performed By: #### 2 4321-2, 66077-7 ####[facility]ATORYCLIA [id number] [address] [place] Chloride [Moles/Vol] 97 mmol/L Normal 97-105 [facility] Comment on above: Order Comment: Speci men Type: BLOOD SPECIMENOrdering Facility: [facility] Address: [address] [place] [address] Performed By: #### 2 4322, ####[facility]ATORYCLIA [id number] [place] [address] [place] CO2 [Moles/Vol] 27 mmol/L Normal 22-30 [facility] Comment on above: Order Comment: Speci men Type: BLOOD SPECIMENOrdering Facility: [facility] Address: [address] [place] [address] Performed By: #### 2 4322, ####[facility]CL[facility] [id number] [address] STATES OF [facility] Creatinine [Mass/Vol] 0.50 mg/dL Low 0.73-1.22 [facility] Comment on above: Order Comment: Speci men Type: BLOOD SPECIMENOrdering Facility: [facility] Address: [address] [place] [address] Performed By: #### 2 4320-06, ####[facility]ATORYCLIA [id number] [address] ESTIMATED GLOMERULAR FILTRATION RATE 110 mL/min/1.73m??? Normal >=60 [facility] Comment on above: Order Comment: Speci men Type: BLOOD SPECIMENOrdering Facility: [facility] Address: [address] [place] [address] Result Comment: Luzmaria mated Glomerular Filtration Rate [...] actual GFR. Performed By: #### 2 2, ####[facility]ATORYCLIA [id number] [place] [address] [place] Glucose [Mass/Vol] 101 mg/dL High 74-99 [facility] Comment on above: Order Comment: Shira feldman Type: BLOOD SPECIMENOrdering Facility: [facility] Address: [address] [place] [address] Result Comment: The [place] [employer] (ADA) provides guidance for cutoff [...] Standards of Medical Care in Diabetes 2016, [place] [employer]. Diabetes Care. 2016.39(Suppl 1). Performed By: #### 2 ####[facility]ATORYCLIA [id number] [place] [address] [place] Potassium [Moles/Vol] 3.6 mmol/L Low 3.7-5.1 [facility] Comment on above: Order Comment: Shira feldman Type: BLOOD SPECIMENOrdering Facility: [facility] Address: [address] [place] [address] Performed By: #### 2 ####[facility]ATORYCLIA [id number] [place] [address] [place] Sodium [Moles/Vol] 138 mmol/L Normal 136-144 [facility] Comment on above: Order Comment: Shira feldman Type: BLOOD SPECIMENOrdering Facility: [facility] Address: [address] [place] [address] Performed By: #### 2 ####[facility]ATORYCLIA [id number] [place] [address] [place] Urea nitrogen [Mass/Vol] 11 mg/dL Normal 9-24 [facility] Comment on above: Order Comment: Speci men Type: BLOOD SPECIMENOrdering Facility: [facility] Address: [address] [place] [address] Performed By: #### 2 4321-2, 63427-4 ####[facility]ORYCLIA [id number] [address] [place] CASE MANAGEMon 08-16-[address] [facility] CBC W Auto Differential pane l (Bld)on 08-16-2021 Basophils (Bld) [#/Vol] 0.03 10*3/uL Normal <0.11 [facility] Comment on above: Order Comment: Speci men Type: BLOOD SPECIMENOrdering Facility: [facility] Address: [address] [place] [address] Performed By: #### 5 7021-8 ####[facility]ATORYCLIA [id number] [address] [place] Basophils/100 WBC (Bld) 0.4 % Normal [facility] Comment on above: Order Comment: Speci men Type: BLOOD SPECIMENOrdering Facility: [facility] Address: [address] [place] [address] Performed By: #### 5 7021-8 ####[facility]ATORYCLIA [id number] [address] [place] Differential cell count method Nom (Bld) Auto Normal [facility] Comment on above: Order Comment: Speci men Type: BLOOD SPECIMENOrdering Facility: [facility] Address: [address] [place] [address] Performed By: #### 5 7021-8 ####[facility]ATORYCLIA [id number] [place] [address] [place] Eosinophils (Bld) [#/Vol] 0.19 10*3/uL Normal <0.46 [facility] Comment on above: Order Comment: Speci men Type: BLOOD SPECIMENOrdering Facility: [facility] Address: [address] [place] [address] Performed By: #### 5 7021-8 ####[facility]ATORYCLIA [id number] [address] Eosinophils/100 WBC (Bld) 2.5 % Normal [facility] Comment on above: Order Comment: Speci men Type: BLOOD SPECIMENOrdering Facility: [facility] Address: [address] [place] [address] Performed By: #### 5 7021-8 ####[facility]ATORYCLIA [id number] [address] Erythrocyte distribution width (RBC) [Ratio] 17.1 % High 11.5-15.0 [facility] Comment on above: Order Comment: Speci men Type: BLOOD SPECIMENOrdering Facility: [facility] Address: [address] [place] [address] Performed By: #### 5 7021-8 ####[facility]ORATORYCLIA [id number] [address] Hematocrit (Bld) [Volume fraction] 29.2 % Low 39.0-51.0 [facility] Comment on above: Order Comment: Speci men Type: BLOOD SPECIMENOrdering Facility: [facility] Address: [address] [place] [address] Performed By: #### 5 7021-8 ####[facility]ORATORYCLIA [id number] [address] Hemoglobin (Bld) [Mass/Vol] 9.0 g/dL Low 13.0-17.0 [facility] Comment on above: Order Comment: Speci men Type: BLOOD SPECIMENOrdering Facility: [facility] Address: [address] [place] [address] Performed By: #### 5 7021-8 ####[facility]ORATORYCLIA [id number] [address] [place] IMMATURE GRAN % 0.3 % Normal [facility] [facility] Comment on above: Order Comment: Speci men Type: BLOOD SPECIMENOrdering Facility: [facility] Address: [address] [place] [address] Performed By: #### 5 7021-8 ####[facility]ATORYCLIA [id number] [address] IMMATURE GRAN ABS <0.03 Normal <0.10 [facility] Comment on above: Order Comment: Speci men Type: BLOOD SPECIMENOrdering Facility: [facility] Address: [address] [place] [address] Performed By: #### 5 7021-8 ####[facility]ATORYCLIA [id number] [address] Lymphocytes (Bld) [#/Vol] 1.41 10*3/uL Normal 1.00-4.00 [facility] Comment on above: Order Comment: Speci men Type: BLOOD SPECIMENOrdering Facility: [facility] Address: [address] [place] [address] Performed By: #### 5 7021-8 ####[facility]ATORYCLIA [id number] [address] Lymphocytes/100 WBC (Bld) 18.4 % Normal [facility] Comment on above: Order Comment: Speci men Type: BLOOD SPECIMENOrdering Facility: [facility] Address: [address] [place] [address] Performed By: #### 5 7021-8 ####[facility]ATORYCLIA [id number] [address] MCH (RBC) [Entitic mass] 28.0 pg Normal 26.0-34.0 [facility] Comment on above: Order Comment: Speci men Type: BLOOD SPECIMENOrdering Facility: [facility] Address: [address] [place] [address] Performed By: #### 5 7021-8 ####[facility]ATORYCLIA [id number] [address] MCHC (RBC) [Mass/Vol] 30.8 g/dL Normal 30.5-36.0 [facility] Comment on above: Order Comment: Speci men Type: BLOOD SPECIMENOrdering Facility: [facility] Address: [address] [place] [address] Performed By: #### 5 7021-8 ####[facility]ATORYCLIA [id number] [address] [place] MCV (RBC) [Entitic vol] 91.0 fL Normal 80.0-100.0 [facility] Comment on above: Order Comment: Speci men Type: BLOOD SPECIMENOrdering Facility: [facility] Address: [address] [place] [address] Performed By: #### 5 7021-8 ####[facility]ATORYCLIA [id number] [address] STATES [facility] Monocytes (Bld) [#/Vol] 0.47 10*3/uL Normal <0.87 [facility] Comment on above: Order Comment: Speci men Type: BLOOD SPECIMENOrdering Facility: [facility] Address: [address] [place] [address] Performed By: #### 5 7021-8 ####[facility]ATORYCLIA [id number] [address] Monocytes/100 WBC (Bld) 6.1 % Normal [facility] Comment on above: Order Comment: Speci men Type: BLOOD SPECIMENOrdering Facility: [facility] Address: [address] [place] [address] Performed By: #### 5 7021-8 ####[facility]ATORYCLIA [id number] [address] [place] Neutrophils (Bld) [#/Vol] 5.55 10*3/uL Normal 1.45-7.50 [facility] Comment on above: Order Comment: Speci men Type: BLOOD SPECIMENOrdering Facility: [facility] Address: [address] [place], [place] [id number] Performed By: #### 5 7021-8 ####[facility]ORATORYCLIA [id number] [address] Neutrophils/100 WBC (Bld) 72.3 % Normal [facility] Comment on above: Order Comment: Speci men Type: BLOOD SPECIMENOrdering Facility: [facility] Address: [address] [place] [address] Performed By: #### 5 7021-8 ####[facility]ATORYCLIA [id number] [address] [place] Nucleated RBC (Bld) [#/Vol] 10*3/uL Normal <0.01 [facility] Comment on above: Order Comment: Speci men Type: BLOOD SPECIMENOrdering Facility: [facility] Address: [address] [place] [address] Performed By: #### 5 7021-8 ####[facility]ATORYCLIA [id number] [address] Nucleated RBC/100 WBC (Bld) [Ratio] 0.0 /[address] [facility] Comment on above: Order Comment: Speci men Type: BLOOD SPECIMENOrdering Facility: [facility] Address: [address] [place] [address] Performed By: #### 5 7021-8 ####[facility]ATORYCLIA [id number] [address] [place] Platelet mean volume (Bld) [Entitic vol] 9.3 fL Normal 9.0-12.7 [facility] Comment on above: Order Comment: Speci men Type: BLOOD SPECIMENOrdering Facility: [facility] Address: [address] [place] [address] Performed By: #### 5 7021-8 ####[facility]ATORYCLIA [id number] [address] [place] Platelets (Bld) [#/Vol] 319 10*3/uL Normal 150-400 [facility] Comment on above: Order Comment: Speci men Type: BLOOD SPECIMENOrdering Facility: [facility] Address: [address] [place] [address] Performed By: #### 5 7021-8 ####[facility] LABORATORYCLIA [id number] [address] [place] RBC (Bld) [#/Vol] 3.21 10*6/uL Low 4.20-6.00 [facility] Comment on above: Order Comment: Speci men Type: BLOOD SPECIMENOrdering Facility: [facility] Address: [address] [place] [address] Performed By: #### 5 7021-8 ####[facility]ATORYCLIA [id number] [address] [place] WBC (Bld) [#/Vol] 7.67 10*3/uL Normal 3.70-11.00 [facility] Comment on above: Order Comment: Speci men Type: BLOOD SPECIMENOrdering Facility: [facility] Address: [address] [place] [address] Performed By: #### 5 7021-8 ####[facility]ATORYCLIA [id number] [address] [place] Basophils (Bld) [#/Vol] 0.04 10*3/uL Normal <0.11 [facility] Comment on above: Order Comment: Speci men Type: BLOOD SPECIMENOrdering Facility: [facility] Address: [address] [place] [address] Performed By: #### 5 7021-8 ####[facility]ATORYCLIA [id number] [address] [place] Basophils/100 WBC (Bld) 0.5 % Normal [facility] Comment on above: Order Comment: Speci men Type: BLOOD SPECIMENOrdering Facility: [facility] Address: [address] [place] [address] Performed By: #### 5 7021-8 ####[facility]ATORYCLIA [id number] [address] Differential cell count method Nom (Bld) Auto Normal [facility] Comment on above: Order Comment: Speci men Type: BLOOD SPECIMENOrdering Facility: [facility] Address: [address] [place] [address] Performed By: #### 5 7021-8 ####[facility]ATORYCLIA [id number] [address] [place] Eosinophils (Bld) [#/Vol] 0.19 10*3/uL Normal <0.46 [facility] Comment on above: Order Comment: Speci men Type: BLOOD SPECIMENOrdering Facility: [facility] Address: [address] [place] [address] Performed By: #### 5 7021-8 ####[facility]ATORYCLIA [id number] [address] Eosinophils/100 WBC (Bld) 2.5 % Normal [facility] Comment on above: Order Comment: Speci men Type: BLOOD SPECIMENOrdering Facility: [facility] Address: [address] [place] [address] Performed By: #### 5 7021-8 ####[facility]ATORYCLIA [id number] [address] Erythrocyte distribution width (RBC) [Ratio] 17.2 % High 11.5-15.0 [facility] Comment on above: Order Comment: Speci men Type: BLOOD SPECIMENOrdering Facility: [facility] Address: [address] [place] [address] Performed By: #### 5 7021-8 ####[facility]ATORYCLIA [id number] [address] [place] Hematocrit (Bld) [Volume fraction] 29.5 % Low 39.0-51.0 [facility] Comment on above: Order Comment: Speci men Type: BLOOD SPECIMENOrdering Facility: [facility] Address: [address] [place] [address] Performed By: #### 5 7021-8 ####[facility]ATORYCLIA [id number] [address] STATES OF [facility] Hemoglobin (Bld) [Mass/Vol] 9.2 g/dL Low 13.0-17.0 [facility] Comment on above: Order Comment: Speci men Type: BLOOD SPECIMENOrdering Facility: [facility] Address: [address] [place] [address] Performed By: #### 5 7021-8 ####[facility]ATORYCLIA [id number] [address] IMMATURE GRAN % 0.4 % Normal [facility] Comment on above: Order Comment: Speci men Type: BLOOD SPECIMENOrdering Facility: [facility] Address: [address] [place] [address] Performed By: #### 5 7021-8 ####[facility]ATORYCLIA [id number] [address] IMMATURE GRAN ABS 0.03 k/uL Normal <0.10 [facility] Comment on above: Order Comment: Speci men Type: BLOOD SPECIMENOrdering Facility: [facility] Address: [address] [place] [address] Performed By: #### 5 7021-8 ####[facility]ATORYCLIA [id number] [address] [place] Lymphocytes (Bld) [#/Vol] 1.50 10*3/uL Normal 1.00-4.00 [facility] Comment on above: Order Comment: Speci men Type: BLOOD SPECIMENOrdering Facility: [facility] Address: [address] [place] [address] Performed By: #### 5 7021-8 ####[facility]ATORYCLIA [id number] [address] Lymphocytes/100 WBC (Bld) 19.7 % Normal [facility] Comment on above: Order Comment: Speci men Type: BLOOD SPECIMENOrdering Facility: [facility] Address: [address] [place] [address] Performed By: #### 5 7021-8 ####[facility]ATORYCLIA [id number] [address] MCH (RBC) [Entitic mass] 28.3 pg Normal 26.0-34.0 [facility] Comment on above: Order Comment: Speci men Type: BLOOD SPECIMENOrdering Facility: [facility] Address: [address] [place] [address] Performed By: #### 5 7021-8 ####[facility]ATORYCLIA [id number] [address] MCHC (RBC) [Mass/Vol] 31.2 g/dL Normal 30.5-36.0 [facility] Comment on above: Order Comment: Speci men Type: BLOOD SPECIMENOrdering Facility: [facility] Address: [address] [place] [address] Performed By: #### 5 7021-8 ####[facility]ATORYCLIA [id number] [address] STATES [facility] MCV (RBC) [Entitic vol] 90.8 fL Normal 80.0-100.0 [facility] Comment on above: Order Comment: Speci men Type: BLOOD SPECIMENOrdering Facility: [facility] Address: [address] [place] [address] Performed By: #### 5 7021-8 ####[facility]ATORYCLIA [id number] [address] Monocytes (Bld) [#/Vol] 0.49 10*3/uL Normal <0.87 [facility] Comment on above: Order Comment: Speci men Type: BLOOD SPECIMENOrdering Facility: [facility] Address: [address] [place] [address] Performed By: #### 5 7021-8 ####[facility]ATORYCLIA [id number] [address] Monocytes/100 WBC (Bld) 6.4 % Normal [facility] Comment on above: Order Comment: Speci men Type: BLOOD SPECIMENOrdering Facility: [facility] Address: [address] [address] Performed By: #### 5 7021-8 ####[facility]ORATORYCLIA [id number] [address] [place] Neutrophils (Bld) [#/Vol] 5.38 10*3/uL Normal 1.45-7.50 [facility] Comment on above: Order Comment: Speci men Type: BLOOD SPECIMENOrdering Facility: [facility] Address: [address] [place] [address] Performed By: #### 5 7021-8 ####[facility]ATORYCLIA [id number] [address] [place] Neutrophils/100 WBC (Bld) 70.5 % Normal [facility] Comment on above: Order Comment: Speci men Type: BLOOD SPECIMENOrdering Facility: [facility] Address: [address] [place] [address] Performed By: #### 5 7021-8 ####[facility]ORATORYCLIA [id number] [address] [place] Nucleated RBC (Bld) [#/Vol] 10*3/uL Normal <0.01 [facility] Comment on above: Order Comment: Speci men Type: BLOOD SPECIMENOrdering Facility: [facility] Address: [address] [address] Performed By: #### 5 7021-8 ####[facility]ORATORYCLIA [id number] [address] [place] Nucleated RBC/100 WBC (Bld) [Ratio] 0.0 /[address] [facility] Comment on above: Order Comment: Speci men Type: BLOOD SPECIMENOrdering Facility: [facility] Address: [address] [address] Performed By: #### 5 7021-8 ####[facility]ORATORYCLIA [id number] [place] [address] [place] Platelet mean volume (Bld) [Entitic vol] 9.0 fL Normal 9.0-12.7 [facility] Comment on above: Order Comment: Speci men Type: BLOOD SPECIMENOrdering Facility: [facility] Address: [address] [place] [address] Performed By: #### 5 7021-8 ####[facility]ATORYCLIA [id number] [place] [address] [place] Platelets (Bld) [#/Vol] 316 10*3/uL Normal 150-400 [facility] Comment on above: Order Comment: Speci men Type: BLOOD SPECIMENOrdering Facility: [facility] Address: [address] [place] [address] Performed By: #### 5 7021-8 ####[facility]ATORYCLIA [id number] [place] [address] [place] RBC (Bld) [#/Vol] 3.25 10*6/uL Low 4.20-6.00 [facility] Comment on above: Order Comment: Speci men Type: BLOOD SPECIMENOrdering Facility: [facility] Address: [address] [place] [address] Performed By: #### 5 7021-8 ####[facility]ATORYCLIA [id number] [address] [place] WBC (Bld) [#/Vol] 7.63 10*3/uL Normal 3.70-11.00 [facility] Comment on above: Order Comment: Speci men Type: BLOOD SPECIMENOrdering Facility: [facility] Address: [address] [place] [address] Performed By: #### 5 7021-8 ####[facility]ATORYCLIA [id number] [address] [place] Basophils (Bld) [#/Vol] Normal <0.11 [facility] Comment on above: Order Comment: Speci men Type: BLOOD SPECIMENOrdering Facility: [facility] Address: [address] [place] [address] Result Comment: Carolina Owens RN informed lab after results autoverified that she rd on the wrong patient. Lab to credit. Nurse to redraw on correct patient.Corrected result: Previously reported as 0.04 k/uL on 08/16/2021 at 4:44 AM EDT. Performed By: #### 5 7021-8 ####[facility]ATORYCLIA [id number] [address] STATES OF [facility] Basophils/100 WBC (Bld) Normal [facility] Comment on above: Order Comment: Johni francia Type: BLOOD SPECIMENOrdering Facility: [facility] Address: [address] [place] [address] Result Comment: Tati ected result: Previously reported as 0.4 % on 08/16/2021 at 4:44 AM EDT. Performed By: #### 5 7021-8 ####[facility]ATORYCLIA [id number] [address] STATES OF [facility] CBC W Differential panel, method unspecified (Bld) Normal [facility] Comment on above: Order Comment: Speccara feldman Type: BLOOD SPECIMENOrdering Facility: [facility] Address: [address] [place] [address] Result Comment: Carolina Owens RN informed lab after results autoverified that she rd on the wrong patient. Lab to credit. Nurse to redraw on correct patient. Performed By: #### 5 7021-8 ####[facility]ATORYCLIA [id number] [address] STATES OF [facility] Differential cell count method Nom (Bld) Normal [facility] Comment on above: Order Comment: Speci francia Type: BLOOD SPECIMENOrdering Facility: [facility] Address: [address] [place] [address] Result Comment: Carolina Owens RN informed lab after results autoverified that she rd on the wrong patient. Lab to credit. Nurse to redraw on correct patient.Corrected result: Previously reported as Auto on 08/16/2021 at 4:44 AM EDT. Performed By: #### 5 7021-8 ####[facility]ATORYCLIA [id number] [address] Eosinophils (Bld) [#/Vol] Normal <0.46 [facility] Comment on above: Order Comment: Speci men Type: BLOOD SPECIMENOrdering Facility: [facility] Address: [address] [place] [address] Result Comment: Carolina Owens RN informed lab after results autoverified that she rd on the wrong patient. Lab to credit. Nurse to redraw on correct patient.Corrected result: Previously reported as 0.07 k/uL on 08/16/2021 at 4:44 AM EDT. Performed By: #### 5 7021-8 ####[facility]ATORYCLIA [id number] [address] Eosinophils/100 WBC (Bld) Normal [facility] Comment on above: Order Comment: Speci men Type: BLOOD SPECIMENOrdering Facility: [facility] Address: [address] [place] [address] Result Comment: Carolina Owens RN informed lab after results autoverified that she rd on the wrong patient. Lab to credit. Nurse to redraw on correct patient.Corrected result: Previously reported as 0.7 % on 08/16/2021 at 4:44 AM EDT. Performed By: #### 5 7021-8 ####[facility]ATORYCLIA [id number] [address] Erythrocyte distribution width (RBC) [Ratio] Normal 11.5-15.0 [facility] Comment on above: Order Comment: Speci men Type: BLOOD SPECIMENOrdering Facility: [facility] Address: [address] [place] [address] Result Comment: Carolina Owens RN informed lab after results autoverified that she rd on the wrong patient. Lab to credit. Nurse to redraw on correct patient.Corrected result: Previously reported as 14.2 % on 08/16/2021 at 4:44 AM EDT. Performed By: #### 5 7021-8 ####[facility]ATORYCLIA [id number] [address] Hematocrit (Bld) [Volume fraction] Normal 39.0-51.0 [facility] Comment on above: Order Comment: Speci men Type: BLOOD SPECIMENOrdering Facility: [facility] Address: [address] [place] [address] Result Comment: Carolina Owens RN informed lab after results autoverified that she rd on the wrong patient. Lab to credit. Nurse to redraw on correct patient.Corrected result: Previously reported as 34.3 % on 08/16/2021 at 4:44 AM EDT. Performed By: #### 5 7021-8 ####[facility]ATORYCLIA [id number] [address] Hemoglobin (Bld) [Mass/Vol] Normal 13.0-17.0 [facility] Comment on above: Order Comment: Speci men Type: BLOOD SPECIMENOrdering Facility: [facility] Address: [address] [place] [address] Result Comment: Carolina Owens RN informed lab after results autoverified that she rd on the wrong patient. Lab to credit. Nurse to redraw on correct patient.Corrected result: Previously reported as 11.2 g/dL on 08/16/2021 at 4:44 AM EDT. Performed By: #### 5 7021-8 ####[facility]ATORYCLIA [id number] [address] [place] IMMATURE GRAN % Normal [facility] Comment on above: Order Comment: Speci men Type: BLOOD SPECIMENOrdering Facility: [facility] Address: [address] [place] [address] Result Comment: Carolina Owens RN informed lab after results autoverified that she rd on the wrong patient. Lab to credit. Nurse to redraw on correct patient.Corrected result: Previously reported as 0.8 % on 08/16/2021 at 4:44 AM EDT. Performed By: #### 5 7021-8 ####[facility]ATORYCLIA [id number] [address] STATES [facility] IMMATURE GRAN ABS Normal <0.10 [facility] Comment on above: Order Comment: Speci men Type: BLOOD SPECIMENOrdering Facility: [facility] Address: [address] [place] [address] Result Comment: Tati ected result: Previously reported as 0.08 k/uL on 08/16/2021 at 4:44 AM EDT. Performed By: #### 5 7021-8 ####[facility]ATORYCLIA [id number] [address] Lymphocytes (Bld) [#/Vol] Normal 1.00-4.00 [facility] Comment on above: Order Comment: Speci [facility] Type: BLOOD SPECIMENOrdering Facility: [facility] Address: [address] [place] [address] Result Comment: Carolina Owens RN informed lab after results autoverified that she rd on the wrong patient. Lab to credit. Nurse to redraw on correct patient.Corrected result: Previously reported as 1.17 k/uL on 08/16/2021 at 4:44 AM EDT. Performed By: #### 5 7021-8 ####[facility]ATORYCLIA [id number] [address] Lymphocytes/100 WBC (Bld) Normal [facility] Comment on above: Order Comment: Speci men Type: BLOOD SPECIMENOrdering Facility: [facility] Address: [address] [place] [address] Result Comment: Carolina Owens RN informed lab after results autoverified that she rd on the wrong patient. Lab to credit. Nurse to redraw on correct patient.Corrected result: Previously reported as 12.0 % on 08/16/2021 at 4:44 AM EDT. Performed By: #### 5 7021-8 ####[facility]ORATORYCLIA [id number] [place] [address] [place] MCHC (RBC) [Mass/Vol] Normal 30.5-36.0 [facility] Comment on above: Order Comment: Speci men Type: BLOOD SPECIMENOrdering Facility: [facility] Address: [address] [place] [address] Result Comment: Carolina Owens RN informed lab after results autoverified that she rd on the wrong patient. Lab to credit. Nurse to redraw on correct patient.Corrected result: Previously reported as 32.7 g/dL on 08/16/2021 at 4:44 AM EDT. Performed By: #### 5 7021-8 ####[facility]ATORYCLIA [id number] [address] MCV (RBC) [Entitic vol] Normal 80.0-100.0 [facility] Comment on above: Order Comment: Speci men Type: BLOOD SPECIMENOrdering Facility: [facility] Address: [address] [place] [address] Result Comment: Carolina Owens RN informed lab after results autoverified that she rd on the wrong patient. Lab to credit. Nurse to redraw on correct patient.Corrected result: Previously reported as 94.2 fL on 08/16/2021 at 4:44 AM EDT. Performed By: #### 5 7021-8 ####[facility]ORATORYCLIA [id number] [address] [place] Monocytes (Bld) [#/Vol] Normal <0.87 [facility] Comment on above: Order Comment: Speci men Type: BLOOD SPECIMENOrdering Facility: [facility] Address: [address] [place] [address] Result Comment: Carolina Owens RN informed lab after results autoverified that she rd on the wrong patient. Lab to credit. Nurse to redraw on correct patient.Corrected result: Previously reported as 0.99 k/uL on 08/16/2021 at 4:44 AM EDT. Performed By: #### 5 7021-8 ####[facility]ATORYCLIA [id number] [address] [place] Monocytes/100 WBC (Bld) Normal [facility] Comment on above: Order Comment: Speci francia Type: BLOOD SPECIMENOrdering Facility: [facility] Address: [address] [place] [address] Result Comment: Carolina Owens RN informed lab after results autoverified that she rd on the wrong patient. Lab to credit. Nurse to redraw on correct patient.Corrected result: Previously reported as 10.2 % on 08/16/2021 at 4:44 AM EDT. Performed By: #### 5 7021-8 ####[facility]ORATORYCLIA [id number] [address] STATES OF [place] Neutrophils (Bld) [#/Vol] Normal 1.45-7.50 [facility] Comment on above: Order Comment: Speccara feldman Type: BLOOD SPECIMENOrdering Facility: [facility] Address: [address] [place] [address] Result Comment: Carolina Owens RN informed lab after results autoverified that she rd on the wrong patient. Lab to credit. Nurse to redraw on correct patient.Corrected result: Previously reported as 7.40 k/uL on 08/16/2021 at 4:44 AM EDT. Performed By: #### 5 7021-8 ####[facility]ATORYCLIA [id number] [address] STATES OF [facility] Neutrophils/100 WBC (Bld) Normal [facility] Comment on above: Order Comment: Speci francia Type: BLOOD SPECIMENOrdering Facility: [facility] Address: [address] [place] [address] Result Comment: Carolina Owens RN informed lab after results autoverified that she rd on the wrong patient. Lab to credit. Nurse to redraw on correct patient.Corrected result: Previously reported as 75.9 % on 08/16/2021 at 4:44 AM EDT. Performed By: #### 5 7021-8 ####[facility]ATORYCLIA [id number] [place] [address] [place] Platelet mean volume (Bld) [Entitic vol] Normal 9.0-12.7 [facility] Comment on above: Order Comment: Speci men Type: BLOOD SPECIMENOrdering Facility: [facility] Address: [address] [place] [address] Result Comment: Carolina Owens RN informed lab after results autoverified that she rd on the wrong patient. Lab to credit. Nurse to redraw on correct patient.Corrected result: Previously reported as 9.1 fL on 08/16/2021 at 4:44 AM EDT. Performed By: #### 5 7021-8 ####[facility]ATORYCLIA [id number] [place] [address] [place] Platelets (Bld) [#/Vol] Normal 150-400 [facility] Comment on above: Order Comment: Speci men Type: BLOOD SPECIMENOrdering Facility: [facility] Address: [address] [place] [address] Result Comment: Carolina Owens RN informed lab after results autoverified that she rd on the wrong patient. Lab to credit. Nurse to redraw on correct patient.Corrected result: Previously reported as 338 k/uL on 08/16/2021 at 4:44 AM EDT. Performed By: #### 5 7021-8 ####[facility]ATORYCLIA [id number] [place] [address] [place] RBC (Bld) [#/Vol] Normal 4.20-6.00 [facility] Comment on above: Order Comment: Speci men Type: BLOOD SPECIMENOrdering Facility: [facility] Address: [address] [place] [address] Result Comment: Carolina Owens RN informed lab after results autoverified that she rd on the wrong patient. Lab to credit. Nurse to redraw on correct patient.Corrected result: Previously reported as 3.64 m/uL on 08/16/2021 at 4:44 AM EDT. Performed By: #### 5 7021-8 ####[facility]ATORYCLIA [id number] [place] [address] [place] [facility] [place] WBC (Bld) [#/Vol] Normal 3.70-11.00 [facility] Comment on above: Order Comment: Speci men Type: BLOOD SPECIMENOrdering Facility: [facility] Address: [address] [place] [address] Result Comment: Carolina Owens RN informed lab after results autoverified that she rd on the wrong patient. Lab to credit. Nurse to redraw on correct patient.Corrected result: Previously reported as 9.75 k/uL on 08/16/2021 at 4:44 AM EDT. Performed By: #### 5 7021-8 ####[facility]ORYCLIA [id number] [address] [place] OF [place] CONSULT PROGon 08-16-2021 CONSULT PROG [facility] Magnesium SerPl-mCncon 08-16 Magnesium [Mass/Vol] 1.8 mg/dL Normal 1.7-2.3 [facility] Comment on above: Order Comment: Speci men Type: BLOOD SPECIMENOrdering Facility: [facility] Address: [address] [place] [address] Performed By: #### 2 4321-2, 51704-5 ####[facility]ATORYCLIA [id number] [place] [address] [place] NURSING PROGon 08-16-[address] [facility] Basic metabolic 2000 panelon 08-15-2021 Anion gap [Moles/Vol] 13 mmol/L Normal 9-18 [facility] Comment on above: Order Comment: Speci men Type: BLOOD SPECIMENOrdering Facility: [facility] Address: [address] [place] [address] Performed By: #### 2 4321-2 ####[facility]ATORYCLIA [id number] [place] [address] [place] Calcium [Mass/Vol] 9.0 mg/dL Normal 8.5-10.2 [facility] Comment on above: Order Comment: Speci men Type: BLOOD SPECIMENOrdering Facility: [facility] Address: [address] [address] Performed By: #### 2 4321-2 ####[facility]ORYCLIA [id number] [place] [address] [place] Chloride [Moles/Vol] 95 mmol/L Low 97-105 [facility] Comment on above: Order Comment: Speci men Type: BLOOD SPECIMENOrdering Facility: [facility] Address: [address] [place] [address] Performed By: #### 2 4321-2 ####[facility]ORYCLIA [id number] [place] [address] [place] CO2 [Moles/Vol] 28 mmol/L Normal 22-30 [facility] Comment on above: Order Comment: Speci men Type: BLOOD SPECIMENOrdering Facility: [facility] Address: [address] [place] [address] Performed By: #### 2 4321-2 ####[facility]ATORYCLIA [id number] [address] STATES OF [facility] Creatinine [Mass/Vol] 0.50 mg/dL Low 0.73-1.22 [facility] Comment on above: Order Comment: Speci men Type: BLOOD SPECIMENOrdering Facility: [facility] Address: [address] [place] [address] Performed By: #### 2 4321-2 ####[facility]ATORYCLIA [id number] [address] ESTIMATED GLOMERULAR FILTRATION RATE 110 mL/min/1.73m??? Normal >=60 [facility] Comment on above: Order Comment: Speci men Type: BLOOD SPECIMENOrdering Facility: [facility] Address: [address] [place] [address] Result Comment: Luzmaria mated Glomerular Filtration Rate [...] GFR. Performed By: #### 2 4321-2 ####[facility]ATORYCLIA [id number] [place] [address] [place] Glucose [Mass/Vol] 106 mg/dL High 74-99 [facility] Comment on above: Order Comment: Shira feldman Type: BLOOD SPECIMENOrdering Facility: [facility] Address: [address] [place] [address] Result Comment: The [place] [employer] (ADA) provides guidance for cutoff [...] Standards of Medical Care in Diabetes 2016, [place] [employer]. Diabetes Care. 2016.39(Suppl 1). Performed By: #### 2 4321-2 ####[facility]ATORYCLIA [id number] [place] [address] [place] Potassium [Moles/Vol] 3.3 mmol/L Low 3.7-5.1 [facility] Comment on above: Order Comment: Shira feldman Type: BLOOD SPECIMENOrdering Facility: [facility] Address: [address] [address] Performed By: #### 2 4321-2 ####[facility]ATORYCLIA [id number] [place] [address] [place] Sodium [Moles/Vol] 136 mmol/L Normal 136-144 [facility] Comment on above: Order Comment: Shira feldman Type: BLOOD SPECIMENOrdering Facility: [facility] Address: [address] [address] Performed By: #### 2 4321-2 ####[facility]ATORYCLIA [id number] [address] [place] Urea nitrogen [Mass/Vol] 11 mg/dL Normal 9-24 [facility] Comment on above: Order Comment: Speci men Type: BLOOD SPECIMENOrdering Facility: [facility] Address: [address] [place] [address] Performed By: #### 2 4321-2 ####[facility]ATORYCLIA [id number] [address] [place] CASE MANAGEMon 08-15-[address] [facility] CBC W Auto Differential pane l (Bld)on 08-15-2021 Basophils (Bld) [#/Vol] 0.03 10*3/uL Normal <0.11 [facility] Comment on above: Order Comment: Speci men Type: BLOOD SPECIMENOrdering Facility: [facility] Address: [address] [place] [address] Performed By: #### 5 7021-8 ####[facility]ATORYCLIA [id number] [address] [place] Basophils/100 WBC (Bld) 0.4 % Normal [facility] Comment on above: Order Comment: Speci men Type: BLOOD SPECIMENOrdering Facility: [facility] Address: [address] [place] [address] Performed By: #### 5 7021-8 ####[facility]ATORYCLIA [id number] [address] STATES OF [facility] Differential cell count method Nom (Bld) Auto Normal [facility] Comment on above: Order Comment: Speci men Type: BLOOD SPECIMENOrdering Facility: [facility] Address: [address] [place] [address] Performed By: #### 5 7021-8 ####[facility]ATORYCLIA [id number] [place] [address] [place] Eosinophils (Bld) [#/Vol] 0.20 10*3/uL Normal <0.46 [facility] Comment on above: Order Comment: Speci men Type: BLOOD SPECIMENOrdering Facility: [facility] Address: [address] [place] [address] Performed By: #### 5 7021-8 ####[facility]ATORYCLIA [id number] [address] STATES OF [facility] Eosinophils/100 WBC (Bld) 2.5 % Normal [facility] Comment on above: Order Comment: Speci men Type: BLOOD SPECIMENOrdering Facility: [facility] Address: [address] [place] [address] Performed By: #### 5 7021-8 ####[facility]ATORYCLIA [id number] [address] Erythrocyte distribution width (RBC) [Ratio] 16.7 % High 11.5-15.0 [facility] Comment on above: Order Comment: Speci men Type: BLOOD SPECIMENOrdering Facility: [facility] Address: [address] [place] [address] Performed By: #### 5 7021-8 ####[facility]ATORYCLIA [id number] [address] Hematocrit (Bld) [Volume fraction] 30.3 % Low 39.0-51.0 [facility] Comment on above: Order Comment: Speci men Type: BLOOD SPECIMENOrdering Facility: [facility] Address: [address] [place] [address] Performed By: #### 5 7021-8 ####[facility]ATORYCLIA [id number] [address] OF [place] Hemoglobin (Bld) [Mass/Vol] 9.4 g/dL Low 13.0-17.0 [facility] Comment on above: Order Comment: Speci men Type: BLOOD SPECIMENOrdering Facility: [facility] Address: [address] [place] [address] Performed By: #### 5 7021-8 ####[facility]ATORYCLIA [id number] [address] [place] IMMATURE GRAN % 0.4 % Normal [facility] Comment on above: Order Comment: Speci men Type: BLOOD SPECIMENOrdering Facility: [facility] Address: [address] [place] [address] Performed By: #### 5 7021-8 ####[facility]ORYCLIA [id number] [address] IMMATURE GRAN ABS 0.03 k/uL Normal <0.10 [facility] Comment on above: Order Comment: Speci men Type: BLOOD SPECIMENOrdering Facility: [facility] Address: [address] [place] [address] Performed By: #### 5 7021-8 ####[facility]ORYCLIA [id number] [address] Lymphocytes (Bld) [#/Vol] 1.50 10*3/uL Normal 1.00-4.00 [facility] Comment on above: Order Comment: Speci men Type: BLOOD SPECIMENOrdering Facility: [facility] Address: [address] [place] [address] Performed By: #### 5 7021-8 ####[facility]ORYCLIA [id number] [address] Lymphocytes/100 WBC (Bld) 18.5 % Normal [facility] Comment on above: Order Comment: Speci men Type: BLOOD SPECIMENOrdering Facility: [facility] Address: [address] [place] [address] Performed By: #### 5 7021-8 ####[facility]ATORYCLIA [id number] [address] STATES [facility] MCH (RBC) [Entitic mass] 29.0 pg Normal 26.0-34.0 [facility] Comment on above: Order Comment: Speci men Type: BLOOD SPECIMENOrdering Facility: [facility] Address: [address] [place] [address] Performed By: #### 5 7021-8 ####[facility]ORYCLIA [id number] [address] STATES OF [facility] MCHC (RBC) [Mass/Vol] 31.0 g/dL Normal 30.5-36.0 [facility] Comment on above: Order Comment: Speci men Type: BLOOD SPECIMENOrdering Facility: [facility] Address: [address] [place] [address] Performed By: #### 5 7021-8 ####[facility]ATORYCLIA [id number] [address] MCV (RBC) [Entitic vol] 93.5 fL Normal 80.0-100.0 [facility] Comment on above: Order Comment: Speci men Type: BLOOD SPECIMENOrdering Facility: [facility] Address: [address] [place] [address] Performed By: #### 5 7021-8 ####[facility]ATORYCLIA [id number] [address] [place] Monocytes (Bld) [#/Vol] 0.47 10*3/uL Normal <0.87 [facility] Comment on above: Order Comment: Speci men Type: BLOOD SPECIMENOrdering Facility: [facility] Address: [address] [place] [address] Performed By: #### 5 7021-8 ####[facility]ATORYCLIA [id number] [address] Monocytes/100 WBC (Bld) 5.8 % Normal [facility] Comment on above: Order Comment: Speci men Type: BLOOD SPECIMENOrdering Facility: [facility] Address: [address] [place] [address] Performed By: #### 5 7021-8 ####[facility]ATORYCLIA [id number] [address] [place] Neutrophils (Bld) [#/Vol] 5.87 10*3/uL Normal 1.45-7.50 [facility] Comment on above: Order Comment: Speci men Type: BLOOD SPECIMENOrdering Facility: [facility] Address: [address] [place] [address] Performed By: #### 5 7021-8 ####[facility]ATORYCLIA [id number] [address] Neutrophils/100 WBC (Bld) 72.4 % Normal [facility] Comment on above: Order Comment: Speci men Type: BLOOD SPECIMENOrdering Facility: [facility] Address: [address] [place] [address] Performed By: #### 5 7021-8 ####[facility]ATORYCLIA [id number] [address] Nucleated RBC (Bld) [#/Vol] 10*3/uL Normal <0.01 [facility] Comment on above: Order Comment: Speci men Type: BLOOD SPECIMENOrdering Facility: [facility] Address: [address] [place] [address] Performed By: #### 5 7021-8 ####[facility]ATORYCLIA [id number] [address] Nucleated RBC/100 WBC (Bld) [Ratio] 0.0 /[address] [facility] Comment on above: Order Comment: Speci men Type: BLOOD SPECIMENOrdering Facility: [facility] Address: [address] [place] [address] Performed By: #### 5 7021-8 ####[facility]ATORYCLIA [id number] [address] Platelet mean volume (Bld) [Entitic vol] 9.4 fL Normal 9.0-12.7 [facility] Comment on above: Order Comment: Speci men Type: BLOOD SPECIMENOrdering Facility: [facility] Address: [address] [place] [address] Performed By: #### 5 7021-8 ####[facility]ATORYCLIA [id number] [address] [place] Platelets (Bld) [#/Vol] 290 10*3/uL Normal 150-400 [facility] Comment on above: Order Comment: Speci men Type: BLOOD SPECIMENOrdering Facility: [facility] Address: [address] [place] [address] Performed By: #### 5 7021-8 ####[facility]ATORYCLIA [id number] [address] STATES OF [facility] RBC (Bld) [#/Vol] 3.24 10*6/uL Low 4.20-6.00 [facility] Comment on above: Order Comment: Speci men Type: BLOOD SPECIMENOrdering Facility: [facility] Address: [address] [place] [address] Performed By: #### 5 7021-8 ####[facility]ORYCLIA [id number] [address] STATES OF [facility] WBC (Bld) [#/Vol] 8.10 10*3/uL Normal 3.70-11.00 [facility] Comment on above: Order Comment: Speci men Type: BLOOD SPECIMENOrdering Facility: [facility] Address: [address] [place] [address] Performed By: #### 5 7021-8 ####[facility]ATORYCLIA [id number] [address] OF [facility] THERAPY NTon 08-15-[address] [facility] THERAPY NT Normal [facility] THERAPY NT Normal [facility] Basic metabolic 2000 panelon 08-14-2021 Anion gap [Moles/Vol] 10 mmol/L Normal 9-18 [facility] Comment on above: Order Comment: Speci men Type: BLOOD SPECIMENOrdering Facility: [facility] Address: [address] [place] [address] Performed By: #### 2 4321-2 ####[facility]ATORYCLIA [id number] [address] [place] Calcium [Mass/Vol] 8.8 mg/dL Normal 8.5-10.2 [facility] Comment on above: Order Comment: Speci men Type: BLOOD SPECIMENOrdering Facility: [facility] Address: [address] [place] [address] Performed By: #### 2 4321-2 ####[facility]ATORYCLIA [id number] [place] [address] [place] Chloride [Moles/Vol] 92 mmol/L Low 97-105 [facility] Comment on above: Order Comment: Speci men Type: BLOOD SPECIMENOrdering Facility: [facility] Address: [address] [place] [address] Performed By: #### 2 4321-2 ####[facility]ATORYCLIA [id number] [place] [address] [place] CO2 [Moles/Vol] 29 mmol/L Normal 22-30 [facility] Comment on above: Order Comment: Speci men Type: BLOOD SPECIMENOrdering Facility: [facility] Address: [address] [place] [address] Performed By: #### 2 4321-2 ####[facility]ATORYCLIA [id number] [place] [address] [place] Creatinine [Mass/Vol] 0.49 mg/dL Low 0.73-1.22 [facility] Comment on above: Order Comment: Speci men Type: BLOOD SPECIMENOrdering Facility: [facility] Address: [address] [place] [address] Performed By: #### 2 4321-2 ####[facility]ATORYCLIA [id number] [address] OF [facility] ESTIMATED GLOMERULAR FILTRATION RATE 111 mL/min/1.73m??? Normal >=60 [facility] Comment on above: Order Comment: Speci men Type: BLOOD SPECIMENOrdering Facility: [facility] Address: [address] [place] [address] Result Comment: Luzmaria mated Glomerular Filtration Rate [...] GFR. Performed By: #### 2 4321-2 ####[facility]ATORYCLIA [id number] [place] [address] [place] Glucose [Mass/Vol] 104 mg/dL High 74-99 [facility] Comment on above: Order Comment: Shira feldman Type: BLOOD SPECIMENOrdering Facility: [facility] Address: [address] [id number] Result Comment: The [place] [employer] (ADA) provides guidance for cutoff [...] Standards of Medical Care in Diabetes 2016, [place] [employer]. Diabetes Care. 2016.39(Suppl 1). Performed By: #### 2 4321-2 ####[facility]ATORYCLIA [id number] [place] [address] [place] Potassium [Moles/Vol] 3.1 mmol/L Low 3.7-5.1 [facility] Comment on above: Order Comment: Shira feldman Type: BLOOD SPECIMENOrdering Facility: [facility] Address: [address] [place] [address] Performed By: #### 2 4321-2 ####[facility]ATORYCLIA [id number] [place] [address] [place] Sodium [Moles/Vol] 131 mmol/L Low 136-144 [facility] Comment on above: Order Comment: Shira feldman Type: BLOOD SPECIMENOrdering Facility: [facility] Address: [address] [address] Performed By: #### 2 4321-2 ####[facility]ORATORYCLIA [id number] [address] STATES [facility] Urea nitrogen [Mass/Vol] 13 mg/dL Normal 9-24 [facility] Comment on above: Order Comment: Speci men Type: BLOOD SPECIMENOrdering Facility: [facility] Address: [address] [place] [address] Performed By: #### 2 4321-2 ####[facility]ATORYCLIA [id number] [address] [place] CBC W Auto Differential pane l (Bld)on 08-14-2021 Basophils (Bld) [#/Vol] 10*3/uL Normal <0.11 [facility] Comment on above: Order Comment: Speci men Type: BLOOD SPECIMENOrdering Facility: [facility] Address: [address] [place] [address] Performed By: #### 5 7021-8 ####[facility]ATORYCLIA [id number] [address] [place] Basophils/100 WBC (Bld) 0.2 % Normal [facility] Comment on above: Order Comment: Speci men Type: BLOOD SPECIMENOrdering Facility: [facility] Address: [address] [place] [address] Performed By: #### 5 7021-8 ####[facility]ATORYCLIA [id number] [address] Differential cell count method Nom (Bld) Auto Normal [facility] Comment on above: Order Comment: Speci men Type: BLOOD SPECIMENOrdering Facility: [facility] Address: [address] [place] [address] Performed By: #### 5 7021-8 ####[facility]ORATORYCLIA [id number] [place] [address] [place] Eosinophils (Bld) [#/Vol] 0.23 10*3/uL Normal <0.46 [facility] Comment on above: Order Comment: Speci men Type: BLOOD SPECIMENOrdering Facility: [facility] Address: [address] [place] [address] Performed By: #### 5 7021-8 ####[facility]ATORYCLIA [id number] [address] [place] Eosinophils/100 WBC (Bld) 2.7 % Normal [facility] Comment on above: Order Comment: Speci men Type: BLOOD SPECIMENOrdering Facility: [facility] Address: [address] [place] [address] Performed By: #### 5 7021-8 ####[facility]ATORYCLIA [id number] [address] [place] Erythrocyte distribution width (RBC) [Ratio] 16.6 % High 11.5-15.0 [facility] Comment on above: Order Comment: Speci men Type: BLOOD SPECIMENOrdering Facility: [facility] Address: [address] [place] [address] Performed By: #### 5 7021-8 ####[facility]ATORYCLIA [id number] [address] [place] Hematocrit (Bld) [Volume fraction] 28.6 % Low 39.0-51.0 [facility] Comment on above: Order Comment: Speci men Type: BLOOD SPECIMENOrdering Facility: [facility] Address: [address] [place] [address] Performed By: #### 5 7021-8 ####[facility]ATORYCLIA [id number] [address] [place] Hemoglobin (Bld) [Mass/Vol] 9.0 g/dL Low 13.0-17.0 [facility] Comment on above: Order Comment: Speci men Type: BLOOD SPECIMENOrdering Facility: [facility] Address: [address] [place] [address] Performed By: #### 5 7021-8 ####[facility]ORATORYCLIA [id number] [address] IMMATURE GRAN % 0.2 % Normal [facility] Comment on above: Order Comment: Speci men Type: BLOOD SPECIMENOrdering Facility: [facility] Address: [address] [place] [address] Performed By: #### 5 7021-8 ####[facility]ATORYCLIA [id number] [address] IMMATURE GRAN ABS <0.03 Normal <0.10 [facility] Comment on above: Order Comment: Speci men Type: BLOOD SPECIMENOrdering Facility: [facility] Address: [address] [place] [address] Performed By: #### 5 7021-8 ####[facility]ATORYCLIA [id number] [address] Lymphocytes (Bld) [#/Vol] 1.33 10*3/uL Normal 1.00-4.00 [facility] Comment on above: Order Comment: Speci men Type: BLOOD SPECIMENOrdering Facility: [facility] Address: [address] [place] [address] Performed By: #### 5 7021-8 ####[facility]ATORYCLIA [id number] [address] Lymphocytes/100 WBC (Bld) 15.6 % Normal [facility] Comment on above: Order Comment: Speci men Type: BLOOD SPECIMENOrdering Facility: [facility] Address: [address] [place] [address] Performed By: #### 5 7021-8 ####[facility]ATORYCLIA [id number] [address] STATES [facility] MCH (RBC) [Entitic mass] 29.0 pg Normal 26.0-34.0 [facility] Comment on above: Order Comment: Speci men Type: BLOOD SPECIMENOrdering Facility: [facility] Address: [address] [place] [address] Performed By: #### 5 7021-8 ####[facility]ATORYCLIA [id number] [address] [place] MCHC (RBC) [Mass/Vol] 31.5 g/dL Normal 30.5-36.0 [facility] Comment on above: Order Comment: Speci men Type: BLOOD SPECIMENOrdering Facility: [facility] Address: [address] [place] [address] Performed By: #### 5 7021-8 ####[facility]ATORYCLIA [id number] [address] MCV (RBC) [Entitic vol] 92.3 fL Normal 80.0-100.0 [facility] Comment on above: Order Comment: Speci men Type: BLOOD SPECIMENOrdering Facility: [facility] Address: [address] [place] [address] Performed By: #### 5 7021-8 ####[facility]ATORYCLIA [id number] [address] [place] Monocytes (Bld) [#/Vol] 0.44 10*3/uL Normal <0.87 [facility] Comment on above: Order Comment: Speci men Type: BLOOD SPECIMENOrdering Facility: [facility] Address: [address] [place] [address] Performed By: #### 5 7021-8 ####[facility]ATORYCLIA [id number] [address] Monocytes/100 WBC (Bld) 5.2 % Normal [facility] Comment on above: Order Comment: Speci men Type: BLOOD SPECIMENOrdering Facility: [facility] Address: [address] [place] [address] Performed By: #### 5 7021-8 ####[facility]ATORYCLIA [id number] [address] [place] Neutrophils (Bld) [#/Vol] 6.46 10*3/uL Normal 1.45-7.50 [facility] Comment on above: Order Comment: Speci men Type: BLOOD SPECIMENOrdering Facility: [facility] Address: [address] [address] Performed By: #### 5 7021-8 ####[facility]ATORYCLIA [id number] [address] Neutrophils/100 WBC (Bld) 76.1 % Normal [facility] Comment on above: Order Comment: Speci men Type: BLOOD SPECIMENOrdering Facility: [facility] Address: [address] [place] [address] Performed By: #### 5 7021-8 ####[facility]ATORYCLIA [id number] [address] Nucleated RBC (Bld) [#/Vol] 10*3/uL Normal <0.01 [facility] Comment on above: Order Comment: Speci men Type: BLOOD SPECIMENOrdering Facility: [facility] Address: [address] [place] [address] Performed By: #### 5 7021-8 ####[facility]ATORYCLIA [id number] [address] Nucleated RBC/100 WBC (Bld) [Ratio] 0.0 /[address] [facility] Comment on above: Order Comment: Speci men Type: BLOOD SPECIMENOrdering Facility: [facility] Address: [address] [place] [address] Performed By: #### 5 7021-8 ####[facility]ATORYCLIA [id number] [address] [place] Platelet mean volume (Bld) [Entitic vol] 9.5 fL Normal 9.0-12.7 [facility] Comment on above: Order Comment: Speci men Type: BLOOD SPECIMENOrdering Facility: [facility] Address: [address] [place] [address] Performed By: #### 5 7021-8 ####[facility]ATORYCLIA [id number] [address] [place] Platelets (Bld) [#/Vol] 247 10*3/uL Normal 150-400 [facility] Comment on above: Order Comment: Speci men Type: BLOOD SPECIMENOrdering Facility: [facility] Address: [address] [place] [address] Performed By: #### 5 7021-8 ####[facility]ATORYCLIA [id number] [place] [address] [place] [facility] RBC (Bld) [#/Vol] 3.10 10*6/uL Low 4.20-6.00 [facility] Comment on above: Order Comment: Speci men Type: BLOOD SPECIMENOrdering Facility: [facility] Address: [address] [place] [address] Performed By: #### 5 7021-8 ####[facility]ATORYCLIA [id number] [address] [place] WBC (Bld) [#/Vol] 8.50 10*3/uL Normal 3.70-11.00 [facility] Comment on above: Order Comment: Speci men Type: BLOOD SPECIMENOrdering Facility: [facility] Address: [address] [place] [address] Performed By: #### 5 7021-8 ####[facility]ATORYCLIA [id number] [address] [place] CONSULTon 08-14-[address] [facility] NURSING PROGon 08-14-[address] [facility] CBC W Auto Differential pane l (Bld)on 08-13-2021 Basophils (Bld) [#/Vol] 10*3/uL Normal <0.11 [facility] Comment on above: Order Comment: Speci men Type: BLOOD SPECIMENOrdering Facility: [facility] Address: [address] [place] [address] Performed By: #### 5 7021-8 ####[facility]ATORYCLIA [id number] [address] [place] Basophils/100 WBC (Bld) 0.2 % Normal [facility] Comment on above: Order Comment: Speci men Type: BLOOD SPECIMENOrdering Facility: [facility] Address: [address] [place] [address] Performed By: #### 5 7021-8 ####[facility]ATORYCLIA [id number] [address] Differential cell count method Nom (Bld) Auto Normal [facility] Comment on above: Order Comment: Speci men Type: BLOOD SPECIMENOrdering Facility: [facility] Address: [address] [place] [address] Performed By: #### 5 7021-8 ####[facility]ATORYCLIA [id number] [address] Eosinophils (Bld) [#/Vol] 0.31 10*3/uL Normal <0.46 [facility] Comment on above: Order Comment: Speci men Type: BLOOD SPECIMENOrdering Facility: [facility] Address: [address] [place] [address] Performed By: #### 5 7021-8 ####[facility]ATORYCLIA [id number] [address] Eosinophils/100 WBC (Bld) 3.7 % Normal [facility] Comment on above: Order Comment: Speci men Type: BLOOD SPECIMENOrdering Facility: [facility] Address: [address] [place] [address] Performed By: #### 5 7021-8 ####[facility]ATORYCLIA [id number] [address] Erythrocyte distribution width (RBC) [Ratio] 16.6 % High 11.5-15.0 [facility] Comment on above: Order Comment: Speci men Type: BLOOD SPECIMENOrdering Facility: [facility] Address: [address] [place] [address] Performed By: #### 5 7021-8 ####[facility]ATORYCLIA [id number] [address] [place] Hematocrit (Bld) [Volume fraction] 27.5 % Low 39.0-51.0 [facility] Comment on above: Order Comment: Speci men Type: BLOOD SPECIMENOrdering Facility: [facility] Address: [address] [place] [address] Performed By: #### 5 7021-8 ####[facility]ATORYCLIA [id number] [address] Hemoglobin (Bld) [Mass/Vol] 8.4 g/dL Low 13.0-17.0 [facility] Comment on above: Order Comment: Speci men Type: BLOOD SPECIMENOrdering Facility: [facility] Address: [address] [place] [address] Performed By: #### 5 7021-8 ####[facility]ATORYCLIA [id number] [address] IMMATURE GRAN % 0.5 % Normal [facility] Comment on above: Order Comment: Speci men Type: BLOOD SPECIMENOrdering Facility: [facility] Address: [address] [place] [address] Performed By: #### 5 7021-8 ####[facility]ATORYCLIA [id number] [address] IMMATURE GRAN ABS 0.04 k/uL Normal <0.10 [facility] Comment on above: Order Comment: Speci men Type: BLOOD SPECIMENOrdering Facility: [facility] Address: [address] [place] [address] Performed By: #### 5 7021-8 ####[facility]ATORYCLIA [id number] [address] Lymphocytes (Bld) [#/Vol] 1.55 10*3/uL Normal 1.00-4.00 [facility] Comment on above: Order Comment: Speci men Type: BLOOD SPECIMENOrdering Facility: [facility] Address: [address] [place] [address] Performed By: #### 5 7021-8 ####[facility]ATORYCLIA [id number] [address] Lymphocytes/100 WBC (Bld) 18.7 % Normal [facility] Comment on above: Order Comment: Speci men Type: BLOOD SPECIMENOrdering Facility: [facility] Address: [address] [place] [address] Performed By: #### 5 7021-8 ####[facility]ATORYCLIA [id number] [address] MCH (RBC) [Entitic mass] 28.9 pg Normal 26.0-34.0 [facility] Comment on above: Order Comment: Speci men Type: BLOOD SPECIMENOrdering Facility: [facility] Address: [address] [place] [address] Performed By: #### 5 7021-8 ####[facility]ORYCLIA [id number] [address] MCHC (RBC) [Mass/Vol] 30.5 g/dL Normal 30.5-36.0 [facility] Comment on above: Order Comment: Speci men Type: BLOOD SPECIMENOrdering Facility: [facility] Address: [address] [place] [address] Performed By: #### 5 7021-8 ####[facility]ORYCLIA [id number] [address] MCV (RBC) [Entitic vol] 94.5 fL Normal 80.0-100.0 [facility] Comment on above: Order Comment: Speci men Type: BLOOD SPECIMENOrdering Facility: [facility] Address: [address] [place] [address] Performed By: #### 5 7021-8 ####[facility]ORYCLIA [id number] [address] Monocytes (Bld) [#/Vol] 0.47 10*3/uL Normal <0.87 [facility] Comment on above: Order Comment: Speci men Type: BLOOD SPECIMENOrdering Facility: [facility] Address: [address] [place] [address] Performed By: #### 5 7021-8 ####[facility]ATORYCLIA [id number] [address] Monocytes/100 WBC (Bld) 5.7 % Normal [facility] Comment on above: Order Comment: Speci men Type: BLOOD SPECIMENOrdering Facility: [facility] Address: [address] [place] [address] Performed By: #### 5 7021-8 ####[facility]ATORYCLIA [id number] [address] [place] Neutrophils (Bld) [#/Vol] 5.92 10*3/uL Normal 1.45-7.50 [facility] Comment on above: Order Comment: Speci men Type: BLOOD SPECIMENOrdering Facility: [facility] Address: [address] [place] [address] Performed By: #### 5 7021-8 ####[facility]ATORYCLIA [id number] [address] Neutrophils/100 WBC (Bld) 71.2 % Normal [facility] Comment on above: Order Comment: Speci men Type: BLOOD SPECIMENOrdering Facility: [facility] Address: [address] [place] [address] Performed By: #### 5 7021-8 ####[facility]ATORYCLIA [id number] [address] [place] Nucleated RBC (Bld) [#/Vol] 10*3/uL Normal <0.01 [facility] Comment on above: Order Comment: Speci men Type: BLOOD SPECIMENOrdering Facility: [facility] Address: [address] [place] [address] Performed By: #### 5 7021-8 ####[facility]ORYCLIA [id number] [address] [place] Nucleated RBC/100 WBC (Bld) [Ratio] 0.0 /[address] [facility] Comment on above: Order Comment: Speci men Type: BLOOD SPECIMENOrdering Facility: [facility] Address: [address] [place] [address] Performed By: #### 5 7021-8 ####[facility]ATORYCLIA [id number] [address] [place] Platelet mean volume (Bld) [Entitic vol] 9.9 fL Normal 9.0-12.7 [facility] Comment on above: Order Comment: Speci men Type: BLOOD SPECIMENOrdering Facility: [facility] Address: [address] [place] [address] Performed By: #### 5 7021-8 ####[facility]ATORYCLIA [id number] [address] [place] Platelets (Bld) [#/Vol] 203 10*3/uL Normal 150-400 [facility] Comment on above: Order Comment: Speci men Type: BLOOD SPECIMENOrdering Facility: [facility] Address: [address] [place] [address] Performed By: #### 5 7021-8 ####[facility]ATORYCLIA [id number] [address] [place] RBC (Bld) [#/Vol] 2.91 10*6/uL Low 4.20-6.00 [facility] Comment on above: Order Comment: Speci men Type: BLOOD SPECIMENOrdering Facility: [facility] Address: [address] [place], [place] [address] Performed By: #### 5 7021-8 ####[facility]ATORYCLIA [id number] [address] [place] WBC (Bld) [#/Vol] 8.31 10*3/uL Normal 3.70-11.00 [facility] Comment on above: Order Comment: Speci men Type: BLOOD SPECIMENOrdering Facility: [facility] Address: [address] [place] [address] Performed By: #### 5 7021-8 ####[facility]ATORYCLIA [id number] [address] OF [facility] aPTT PPPon 08-13-2021 aPTT Coag (PPP) [Time] 69.7 s High 23.0-32.4 [facility] Comment on above: Order Comment: Speci men Type: BLOOD SPECIMENOrdering Facility: [facility] Address: [address] [place], [place] [address] Performed By: #### 1 4979-9 ####[facility]ATORYCLIA [id number] [address] STATES OF [facility] aPTT Coag (PPP) [Time] 70.6 s High 23.0-32.4 [facility] Comment on above: Order Comment: Speci men Type: BLOOD SPECIMENOrdering Facility: [facility] Address: [address] [place], [place] [address] Performed By: #### 1 4979-9 ####[facility]ATORYCLIA [id number] [address] [place] ALLIED HEALTHon 08-12-[address] [facility] ALLIED HEALTH Normal [facility] Basic metabolic 2000 panelon 08-12-2021 Anion gap [Moles/Vol] 7 mmol/L Low 9-18 [facility] Comment on above: Order Comment: Speci men Type: BLOOD SPECIMENOrdering Facility: [facility] Address: [address] [place], [place] [address] Performed By: #### 2 4321-2, , 2776-05 ####[facility]ATORYCLIA [id number] [address] STATES OF [facility] Calcium [Mass/Vol] 8.8 mg/dL Normal 8.5-10.2 [facility] Comment on above: Order Comment: Speci men Type: BLOOD SPECIMENOrdering Facility: [facility] Address: [address] [place], [place] [address] Performed By: #### 2 4321-2, , 2776-05 ####[facility]ATORYCLIA [id number] [place] [address] [place] Chloride [Moles/Vol] 96 mmol/L Low 97-105 [facility] Comment on above: Order Comment: Speci men Type: BLOOD SPECIMENOrdering Facility: [facility] Address: [address] [place] [address] Performed By: #### 2 4321-2, , 2776-05 ####[facility]ATORYCLIA [id number] [address] STATES OF [facility] CO2 [Moles/Vol] 32 mmol/L High 22-30 [facility] Comment on above: Order Comment: Speci men Type: BLOOD SPECIMENOrdering Facility: [facility] Address: [address] [place] [address] Performed By: #### 2 4321-2, , 2776-05 ####[facility]ATORYCLIA [id number] [address] Creatinine [Mass/Vol] 0.52 mg/dL Low 0.73-1.22 [facility] Comment on above: Order Comment: Speci men Type: BLOOD SPECIMENOrdering Facility: [facility] Address: [address] [place] [address] Performed By: #### 2 4321-2, , 2776-05 ####[facility]ATORYCLIA [id number] [address] ESTIMATED GLOMERULAR FILTRATION RATE 109 mL/min/1.73m??? Normal >=60 [facility] Comment on above: Order Comment: Speci men Type: BLOOD SPECIMENOrdering Facility: [facility] Address: [address] [place] [address] Result Comment: Luzmaria mated Glomerular Filtration Rate [...] By: #### 2 4321-2, , 2776-05 ####[facility]ATORYCLIA [id number] [place] [address] [place] Glucose [Mass/Vol] 119 mg/dL High 74-99 [facility] Comment on above: Order Comment: Shira feldman Type: BLOOD SPECIMENOrdering Facility: [facility] Address: [address] [place], [place] [address] Result Comment: The [place] [employer] (ADA) provides guidance for cutoff [...] Standards of Medical Care in Diabetes 2016, [place] [employer]. Diabetes Care. 2016.39(Suppl 1). Performed By: #### 2 4321-2, , 2776-05 ####[facility]ATORYCLIA [id number] [place] [address] [place] Potassium [Moles/Vol] 3.7 mmol/L Normal 3.7-5.1 [facility] Comment on above: Order Comment: Shira feldman Type: BLOOD SPECIMENOrdering Facility: [facility] Address: [address] [place] [address] Performed By: #### 2 4321-2, , 2776-05 ####[facility]ATORYCLIA [id number] [place] [address] [place] Sodium [Moles/Vol] 135 mmol/L Low 136-144 [facility] Comment on above: Order Comment: Shira feldman Type: BLOOD SPECIMENOrdering Facility: [facility] Address: [address] [place] [address] Performed By: #### 2 4321-2, 25166-6, 2771 ####[facility]ATORYCLIA [id number] [address] STATES [facility] Urea nitrogen [Mass/Vol] 20 mg/dL Normal 9-24 [facility] Comment on above: Order Comment: Speci men Type: BLOOD SPECIMENOrdering Facility: [facility] Address: [address] [place] [address] Performed By: #### 2 4321-2, , 27711-04 ####[facility]ATORYCLIA [id number] [address] CASE MANAGEMon 08-12-[address] [facility] CBC W Auto Differential pane l (Bld)on 08-12-2021 Basophils (Bld) [#/Vol] 0.04 10*3/uL Normal <0.11 [facility] Comment on above: Order Comment: Speci men Type: BLOOD SPECIMENOrdering Facility: [facility] Address: [address] [place] [address] Performed By: #### 5 7021-8 ####[facility]ATORYCLIA [id number] [address] [place] Basophils/100 WBC (Bld) 0.5 % Normal [facility] Comment on above: Order Comment: Speci men Type: BLOOD SPECIMENOrdering Facility: [facility] Address: [address] [place] [address] Performed By: #### 5 7021-8 ####[facility]ATORYCLIA [id number] [address] STATES [facility] Differential cell count method Nom (Bld) Auto Normal [facility] Comment on above: Order Comment: Speci men Type: BLOOD SPECIMENOrdering Facility: [facility] Address: [address] [place] [address] Performed By: #### 5 7021-8 ####[facility]ATORYCLIA [id number] [address] [place] Eosinophils (Bld) [#/Vol] 0.19 10*3/uL Normal <0.46 [facility] Comment on above: Order Comment: Speci men Type: BLOOD SPECIMENOrdering Facility: [facility] Address: [address] [place] [address] Performed By: #### 5 7021-8 ####[facility]ATORYCLIA [id number] [address] [place] Eosinophils/100 WBC (Bld) 2.3 % Normal [facility] Comment on above: Order Comment: Speci men Type: BLOOD SPECIMENOrdering Facility: [facility] Address: [address] [place] [address] Performed By: #### 5 7021-8 ####[facility]ATORYCLIA [id number] [address] STATES [facility] Erythrocyte distribution width (RBC) [Ratio] 17.1 % High 11.5-15.0 [facility] Comment on above: Order Comment: Speci men Type: BLOOD SPECIMENOrdering Facility: [facility] Address: [address] [place] [address] Performed By: #### 5 7021-8 ####[facility]ATORYCLIA [id number] [address] [place] Hematocrit (Bld) [Volume fraction] 25.3 % Low 39.0-51.0 [facility] Comment on above: Order Comment: Speci men Type: BLOOD SPECIMENOrdering Facility: [facility] Address: [address] [place] [address] Performed By: #### 5 7021-8 ####[facility]ATORYCLIA [id number] [address] [place] Hemoglobin (Bld) [Mass/Vol] 7.9 g/dL Low 13.0-17.0 [facility] Comment on above: Order Comment: Speci men Type: BLOOD SPECIMENOrdering Facility: [facility] Address: [address] [place] [address] Performed By: #### 5 7021-8 ####[facility]ATORYCLIA [id number] [address] IMMATURE GRAN % 0.5 % Normal [facility] Comment on above: Order Comment: Speci men Type: BLOOD SPECIMENOrdering Facility: [facility] Address: [address] [place] [address] Performed By: #### 5 7021-8 ####[facility]ATORYCLIA [id number] [address] IMMATURE GRAN ABS 0.04 k/uL Normal <0.10 [facility] Comment on above: Order Comment: Speci men Type: BLOOD SPECIMENOrdering Facility: [facility] Address: [address] [place] [address] Performed By: #### 5 7021-8 ####[facility]ATORYCLIA [id number] [address] Lymphocytes (Bld) [#/Vol] 1.69 10*3/uL Normal 1.00-4.00 [facility] Comment on above: Order Comment: Speci men Type: BLOOD SPECIMENOrdering Facility: [facility] Address: [address] [place] [address] Performed By: #### 5 7021-8 ####[facility] LABORATORYCLIA [id number] [address] Lymphocytes/100 WBC (Bld) 20.1 % Normal [facility] Comment on above: Order Comment: Speci men Type: BLOOD SPECIMENOrdering Facility: [facility] Address: [address] [place] [address] Performed By: #### 5 7021-8 ####[facility] LABORATORYCLIA [id number] [address] [place] MCH (RBC) [Entitic mass] 28.5 pg Normal 26.0-34.0 [facility] Comment on above: Order Comment: Speci men Type: BLOOD SPECIMENOrdering Facility: [facility] Address: [address] [place] [address] Performed By: #### 5 7021-8 ####[facility]ORATORYCLIA [id number] [address] [place] MCHC (RBC) [Mass/Vol] 31.2 g/dL Normal 30.5-36.0 [facility] Comment on above: Order Comment: Speci men Type: BLOOD SPECIMENOrdering Facility: [facility] Address: [address] [place] [address] Performed By: #### 5 7021-8 ####[facility]ORATORYCLIA [id number] [address] [place] MCV (RBC) [Entitic vol] 91.3 fL Normal 80.0-100.0 [facility] Comment on above: Order Comment: Speci men Type: BLOOD SPECIMENOrdering Facility: [facility] Address: [address] [place] [address] Performed By: #### 5 7021-8 ####[facility]ATORYCLIA [id number] [address] [place] Monocytes (Bld) [#/Vol] 0.53 10*3/uL Normal <0.87 [facility] Comment on above: Order Comment: Speci men Type: BLOOD SPECIMENOrdering Facility: [facility] Address: [address] [place] [address] Performed By: #### 5 7021-8 ####[facility]ATORYCLIA [id number] [address] Monocytes/100 WBC (Bld) 6.3 % Normal [facility] Comment on above: Order Comment: Speci men Type: BLOOD SPECIMENOrdering Facility: [facility] Address: [address] [place] [address] Performed By: #### 5 7021-8 ####[facility]ATORYCLIA [id number] [address] [place] Neutrophils (Bld) [#/Vol] 5.90 10*3/uL Normal 1.45-7.50 [facility] Comment on above: Order Comment: Speci men Type: BLOOD SPECIMENOrdering Facility: [facility] Address: [address] [place] [address] Performed By: #### 5 7021-8 ####[facility]ATORYCLIA [id number] [address] [place] Neutrophils/100 WBC (Bld) 70.3 % Normal [facility] Comment on above: Order Comment: Speci men Type: BLOOD SPECIMENOrdering Facility: [facility] Address: [address] [place] [address] Performed By: #### 5 7021-8 ####[facility]ATORYCLIA [id number] [address] [place] Nucleated RBC (Bld) [#/Vol] 10*3/uL Normal <0.01 [facility] Comment on above: Order Comment: Speci men Type: BLOOD SPECIMENOrdering Facility: [facility] Address: [address] [place] [address] Performed By: #### 5 7021-8 ####[facility]ATORYCLIA [id number] [address] [place] Nucleated RBC/100 WBC (Bld) [Ratio] 0.0 /[address] [facility] Comment on above: Order Comment: Speci men Type: BLOOD SPECIMENOrdering Facility: [facility] Address: [address] [place] [address] Performed By: #### 5 7021-8 ####[facility]ATORYCLIA [id number] [address] [place] Platelet mean volume (Bld) [Entitic vol] 9.8 fL Normal 9.0-12.7 [facility] Comment on above: Order Comment: Speci men Type: BLOOD SPECIMENOrdering Facility: [facility] Address: [address] [place] [address] Performed By: #### 5 7021-8 ####[facility]ATORYCLIA [id number] [address] Platelets (Bld) [#/Vol] 164 10*3/uL Normal 150-400 [facility] Comment on above: Order Comment: Speci men Type: BLOOD SPECIMENOrdering Facility: [facility] Address: [address] [place] [address] Performed By: #### 5 7021-8 ####[facility]ATORYCLIA [id number] [address] [place] RBC (Bld) [#/Vol] 2.77 10*6/uL Low 4.20-6.00 [facility] Comment on above: Order Comment: Speci men Type: BLOOD SPECIMENOrdering Facility: [facility] Address: [address] [place] [address] Performed By: #### 5 7021-8 ####[facility]ATORYCLIA [id number] [address] WBC (Bld) [#/Vol] 8.39 10*3/uL Normal 3.70-11.00 [facility] Comment on above: Order Comment: Speci men Type: BLOOD SPECIMENOrdering Facility: [facility] Address: [address] [place] [address] Performed By: #### 5 7021-8 ####[facility]ATORYCLIA [id number] [address] BRAIN WO IVCONon 08-13-19 CT BRAIN WO IVCON Normal [facility] CT BRAIN WO IVCON Normal [facility] Magnesium SerPl-mCncon 08-12 Magnesium [Mass/Vol] 2.0 mg/dL Normal 1.7-2.3 [facility] Comment on above: Order Comment: Speci men Type: BLOOD SPECIMENOrdering Facility: [facility] Address: [address] [place] [address] Performed By: #### 2 4321-2, 46340-0, 2777-1 ####[facility]ATORYCLIA [id number] [address] Phosphate SerPl-mCncon 08-12 Phosphate [Mass/Vol] 2.9 mg/dL Normal 2.7-4.8 [facility] Comment on above: Order Comment: Speci men Type: BLOOD SPECIMENOrdering Facility: [facility] Address: [address] [place] [address] Performed By: #### 2 4321-2, 87562-6, 2777-1 ####[facility]ATORYCLIA [id number] [address] THERAPY NTon 08-12-[address] [facility] THERAPY NT Normal [facility] aPTT PPPon 08-12-2021 aPTT Coag (PPP) [Time] 94.2 s High 23.0-32.4 [facility] Comment on above: Order Comment: Speci men Type: BLOOD SPECIMENOrdering Facility: [facility] Address: [address] [place] [address] Performed By: #### 1 4979-9 ####[facility]ATORYCLIA [id number] [address] aPTT Coag (PPP) [Time] 84.4 s High 23.0-32.4 [facility] Comment on above: Order Comment: Speci men Type: BLOOD SPECIMENOrdering Facility: [facility] Address: [address] [place] [address] Performed By: #### 1 4979-9 ####[facility]ATORYCLIA [id number] [address] aPTT Coag (PPP) [Time] 71.3 s High 23.0-32.4 [facility] Comment on above: Order Comment: Speci men Type: BLOOD SPECIMENOrdering Facility: [facility] Address: [address] [place] [address] Performed By: #### 1 4979-9 ####[facility]ATORYCLIA [id number] [address] [place] ALLIED HEALTHon 08-11-[address] [facility] CBC W Auto Differential pane l (Bld)on 08-11-2021 Basophils (Bld) [#/Vol] 10*3/uL Normal <0.11 [facility] Comment on above: Order Comment: Speci men Type: BLOOD SPECIMENOrdering Facility: [facility] Address: [address] [place] [address] Performed By: #### 5 7021-8 ####[facility]ATORYCLIA [id number] [address] Basophils/100 WBC (Bld) 0.2 % Normal [facility] Comment on above: Order Comment: Speci men Type: BLOOD SPECIMENOrdering Facility: [facility] Address: [address] [place] [address] Performed By: #### 5 7021-8 ####[facility]ATORYCLIA [id number] [address] Differential cell count method Nom (Bld) Auto Normal [facility] Comment on above: Order Comment: Speci men Type: BLOOD SPECIMENOrdering Facility: [facility] Address: [address] [place] [address] Performed By: #### 5 7021-8 ####[facility]ATORYCLIA [id number] [address] [place] Eosinophils (Bld) [#/Vol] 0.16 10*3/uL Normal <0.46 [facility] Comment on above: Order Comment: Speci men Type: BLOOD SPECIMENOrdering Facility: [facility] Address: [address] [place] [address] Performed By: #### 5 7021-8 ####[facility]ATORYCLIA [id number] [address] [place] Eosinophils/100 WBC (Bld) 1.8 % Normal [facility] Comment on above: Order Comment: Speci men Type: BLOOD SPECIMENOrdering Facility: [facility] Address: [address] [place] [address] Performed By: #### 5 7021-8 ####[facility]ATORYCLIA [id number] [address] Erythrocyte distribution width (RBC) [Ratio] 17.3 % High 11.5-15.0 [facility] Comment on above: Order Comment: Speci men Type: BLOOD SPECIMENOrdering Facility: [facility] Address: [address] [place] [address] Performed By: #### 5 7021-8 ####[facility]ATORYCLIA [id number] [address] Hematocrit (Bld) [Volume fraction] 26.6 % Low 39.0-51.0 [facility] Comment on above: Order Comment: Speci men Type: BLOOD SPECIMENOrdering Facility: [facility] Address: [address] [place] [address] Performed By: #### 5 7021-8 ####[facility]ATORYCLIA [id number] [address] Hemoglobin (Bld) [Mass/Vol] 8.2 g/dL Low 13.0-17.0 [facility] Comment on above: Order Comment: Speci men Type: BLOOD SPECIMENOrdering Facility: [facility] Address: [address] [place] [address] Performed By: #### 5 7021-8 ####[facility]ATORYCLIA [id number] [address] IMMATURE GRAN % 0.6 % Normal [facility] Comment on above: Order Comment: Speci men Type: BLOOD SPECIMENOrdering Facility: [facility] Address: [address] [place] [address] Performed By: #### 5 7021-8 ####[facility]ATORYCLIA [id number] [address] IMMATURE GRAN ABS 0.05 k/uL Normal <0.10 [facility] Comment on above: Order Comment: Speci men Type: BLOOD SPECIMENOrdering Facility: [facility] Address: [address] [place] [address] Performed By: #### 5 7021-8 ####[facility]ATORYCLIA [id number] [address] [place] Lymphocytes (Bld) [#/Vol] 1.40 10*3/uL Normal 1.00-4.00 [facility] Comment on above: Order Comment: Speci men Type: BLOOD SPECIMENOrdering Facility: [facility] Address: [address] [place] [address] Performed By: #### 5 7021-8 ####[facility]ATORYCLIA [id number] [address] Lymphocytes/100 WBC (Bld) 15.8 % Normal [facility] Comment on above: Order Comment: Speci men Type: BLOOD SPECIMENOrdering Facility: [facility] Address: [address] [place] [address] Performed By: #### 5 7021-8 ####[facility]ORYCLIA [id number] [address] MCH (RBC) [Entitic mass] 28.4 pg Normal 26.0-34.0 [facility] Comment on above: Order Comment: Speci men Type: BLOOD SPECIMENOrdering Facility: [facility] Address: [address] [place] [address] Performed By: #### 5 7021-8 ####[facility]ATORYCLIA [id number] [address] MCHC (RBC) [Mass/Vol] 30.8 g/dL Normal 30.5-36.0 [facility] Comment on above: Order Comment: Speci men Type: BLOOD SPECIMENOrdering Facility: [facility] Address: [address] [address] Performed By: #### 5 7021-8 ####[facility]ATORYCLIA [id number] [address] [place] MCV (RBC) [Entitic vol] 92.0 fL Normal 80.0-100.0 [facility] Comment on above: Order Comment: Speci men Type: BLOOD SPECIMENOrdering Facility: [facility] Address: [address] [place] [address] Performed By: #### 5 7021-8 ####[facility]ORYCLIA [id number] [address] [place] Monocytes (Bld) [#/Vol] 0.61 10*3/uL Normal <0.87 [facility] Comment on above: Order Comment: Speci men Type: BLOOD SPECIMENOrdering Facility: [facility] Address: [address] [place] [address] Performed By: #### 5 7021-8 ####[facility]ATORYCLIA [id number] [address] STATES [facility] Monocytes/100 WBC (Bld) 6.9 % Normal [facility] Comment on above: Order Comment: Speci men Type: BLOOD SPECIMENOrdering Facility: [facility] Address: [address] [place] [address] Performed By: #### 5 7021-8 ####[facility]ATORYCLIA [id number] [address] [place] Neutrophils (Bld) [#/Vol] 6.62 10*3/uL Normal 1.45-7.50 [facility] Comment on above: Order Comment: Speci men Type: BLOOD SPECIMENOrdering Facility: [facility] Address: [address] [place] [address] Performed By: #### 5 7021-8 ####[facility]ATORYCLIA [id number] [address] [place] Neutrophils/100 WBC (Bld) 74.7 % Normal [facility] Comment on above: Order Comment: Speci men Type: BLOOD SPECIMENOrdering Facility: [facility] Address: [address] [address] Performed By: #### 5 7021-8 ####[facility]ATORYCLIA [id number] [address] [place] Nucleated RBC (Bld) [#/Vol] 10*3/uL Normal <0.01 [facility] Comment on above: Order Comment: Speci men Type: BLOOD SPECIMENOrdering Facility: [facility] Address: [address] [place] [address] Performed By: #### 5 7021-8 ####[facility]ATORYCLIA [id number] [address] [place] Nucleated RBC/100 WBC (Bld) [Ratio] 0.0 /[address] [facility] Comment on above: Order Comment: Speci men Type: BLOOD SPECIMENOrdering Facility: [facility] Address: [address] [place] [address] Performed By: #### 5 7021-8 ####[facility]ATORYCLIA [id number] [address] [place] Platelet mean volume (Bld) [Entitic vol] 9.8 fL Normal 9.0-12.7 [facility] Comment on above: Order Comment: Speci men Type: BLOOD SPECIMENOrdering Facility: [facility] Address: [address] [place], [place] [address] Performed By: #### 5 7021-8 ####[facility]ATORYCLIA [id number] [address] [place] Platelets (Bld) [#/Vol] 157 10*3/uL Normal 150-400 [facility] Comment on above: Order Comment: Speci men Type: BLOOD SPECIMENOrdering Facility: [facility] Address: [address] [place] [address] Performed By: #### 5 7021-8 ####[facility]ATORYCLIA [id number] [address] OF [facility] RBC (Bld) [#/Vol] 2.89 10*6/uL Low 4.20-6.00 [facility] Comment on above: Order Comment: Speci men Type: BLOOD SPECIMENOrdering Facility: [facility] Address: [address] [place] [address] Performed By: #### 5 7021-8 ####[facility]ATORYCLIA [id number] [address] [facility] WBC (Bld) [#/Vol] 8.86 10*3/uL Normal 3.70-11.00 [facility] Comment on above: Order Comment: Speci men Type: BLOOD SPECIMENOrdering Facility: [facility] Address: [address] [place] [address] Performed By: #### 5 7021-8 ####[facility]ATORYCLIA [id number] [address] CBC panel Auto (Bld)on 08-11 Erythrocyte distribution width (RBC) [Ratio] 17.2 % High 11.5-15.0 [facility] Comment on above: Order Comment: Speci men Type: BLOOD SPECIMENOrdering Facility: [facility] Address: [address] [place] [address] Performed By: #### 5 8410-2 ####[facility]ATORYCLIA [id number] [address] Hematocrit (Bld) [Volume fraction] 27.0 % Low 39.0-51.0 [facility] Comment on above: Order Comment: Speci men Type: BLOOD SPECIMENOrdering Facility: [facility] Address: [address] [place] [address] Performed By: #### 5 8410-2 ####[facility]ATORYCLIA [id number] [address] OF [facility] Hemoglobin (Bld) [Mass/Vol] 8.3 g/dL Low 13.0-17.0 [facility] Comment on above: Order Comment: Speci men Type: BLOOD SPECIMENOrdering Facility: [facility] Address: [address] [place] [address] Performed By: #### 5 8410-2 ####[facility]ATORYCLIA [id number] [address] MCH (RBC) [Entitic mass] 28.7 pg Normal 26.0-34.0 [facility] Comment on above: Order Comment: Speci men Type: BLOOD SPECIMENOrdering Facility: [facility] Address: [address] [place] [address] Performed By: #### 5 8410-2 ####[facility]ATORYCLIA [id number] [address] MCHC (RBC) [Mass/Vol] 30.7 g/dL Normal 30.5-36.0 [facility] Comment on above: Order Comment: Speci men Type: BLOOD SPECIMENOrdering Facility: [facility] Address: [address] [place] [address] Performed By: #### 5 8410-2 ####[facility]ATORYCLIA [id number] [address] MCV (RBC) [Entitic vol] 93.4 fL Normal 80.0-100.0 [facility] Comment on above: Order Comment: Speci men Type: BLOOD SPECIMENOrdering Facility: [facility] Address: [address] [place] [address] Performed By: #### 5 8410-2 ####[facility]ATORYCLIA [id number] [address] Nucleated RBC (Bld) [#/Vol] 10*3/uL Normal <0.01 [facility] Comment on above: Order Comment: Speci men Type: BLOOD SPECIMENOrdering Facility: [facility] Address: [address] [place] [address] Performed By: #### 5 8410-2 ####[facility]ATORYCLIA [id number] [address] Platelet mean volume (Bld) [Entitic vol] 9.8 fL Normal 9.0-12.7 [facility] Comment on above: Order Comment: Speci men Type: BLOOD SPECIMENOrdering Facility: [facility] Address: [address] [place] [address] Performed By: #### 5 8410-2 ####[facility]ATORYCLIA [id number] [address] [place] Platelets (Bld) [#/Vol] 169 10*3/uL Normal 150-400 [facility] Comment on above: Order Comment: Speci men Type: BLOOD SPECIMENOrdering Facility: [facility] Address: [address] [place] [address] Performed By: #### 5 8410-2 ####[facility]ATORYCLIA [id number] [address] STATES OF [facility] RBC (Bld) [#/Vol] 2.89 10*6/uL Low 4.20-6.00 [facility] Comment on above: Order Comment: Speci men Type: BLOOD SPECIMENOrdering Facility: [facility] Address: [address] [place] [address] Performed By: #### 5 8410-2 ####[facility]ATORYCLIA [id number] [address] [place] WBC (Bld) [#/Vol] 9.03 10*3/uL Normal 3.70-11.00 [facility] Comment on above: Order Comment: Speci men Type: BLOOD SPECIMENOrdering Facility: [facility] Address: [address] [place] [address] Performed By: #### 5 8410-2 ####[facility]ATORYCLIA [id number] [address] [facility] CT BRAIN WO IVCONon 08-12-19 CT BRAIN WO IVCON Normal [facility] PT panel Coag (PPP)on 2021 INR Coag (PPP) [Relative time] 1.0 {INR} Normal 0.9-1.3 [facility] Comment on above: Order Comment: Shira feldman Type: BLOOD SPECIMENOrdering Facility: [facility] Address: [address] [phone] Result Comment: Yris min K Antagonist (VKA) Therapeutic Range: INR 2 to 3 (Target INR of 2.5)Note: For patients treated with VKA drugs, such as warfarin, the [place] [employer] 2012 Guideline recommends [...] al. Chest 2012, 141:7S-47SNishimpatricia RA, et al. [facility] 2017, 70: 252-289 Performed By: #### 1 4979-9, 32559-9 ####[facility]ORATORYCLIA [id number] [place] [address] [place] PT Coag (PPP) [Time] 11.4 s Normal 9.7-13.0 [facility] Comment on above: Order Comment: Shira feldman Type: BLOOD SPECIMENOrdering Facility: [facility] Address: [address] [place] [address] Performed By: #### 1 4979-9, 51269-4 ####[facility]ATORYCLIA [id number] [place] [address] [place] THERAPY NTon 08-11-[address] [facility] US DVT LOWER BILon 2 US DVT LOWER RAINER Normal [facility] US DVT UPPER BILon 2 US DVT UPPER RAINER Normal [facility] aPTT PPPon 08-11-2021 aPTT Coag (PPP) [Time] 26.9 s Normal 23.0-32.4 [facility] Comment on above: Order Comment: Speci men Type: BLOOD SPECIMENOrdering Facility: [facility] Address: [address] [place] [address] Performed By: #### 1 4979-9, 07273-7 ####[facility]ATORYCLIA [id number] [place] [address] [place] Basic metabolic 2000 panelon 08-10-2021 Anion gap [Moles/Vol] 11 mmol/L Normal 9-18 [facility] Comment on above: Order Comment: Speci men Type: BLOOD SPECIMENOrdering Facility: [facility] Address: [address] [place] [address] Performed By: #### 2 4321-2 ####[facility]ATORYCLIA [id number] [place] [address] [place] Calcium [Mass/Vol] 8.7 mg/dL Normal 8.5-10.2 [facility] Comment on above: Order Comment: Speci men Type: BLOOD SPECIMENOrdering Facility: [facility] Address: [address] [place] [address] Performed By: #### 2 4321-2 ####[facility]ATORYCLIA [id number] [place] [address] [place] Chloride [Moles/Vol] 98 mmol/L Normal 97-105 [facility] Comment on above: Order Comment: Speci men Type: BLOOD SPECIMENOrdering Facility: [facility] Address: [address] [place] [address] Performed By: #### 2 4321-2 ####[facility]ATORYCLIA [id number] [place] [address] [place] CO2 [Moles/Vol] 28 mmol/L Normal 22-30 [facility] Comment on above: Order Comment: Speci men Type: BLOOD SPECIMENOrdering Facility: [facility] Address: [address] [place] [address] Performed By: #### 2 4321-2 ####[facility]ORATORYCLIA [id number] [address] STATES OF [facility] Creatinine [Mass/Vol] 0.59 mg/dL Low 0.73-1.22 [facility] Comment on above: Order Comment: Shira feldman Type: BLOOD SPECIMENOrdering Facility: [facility] Address: [address] [place] [address] Performed By: #### 2 4321-2 ####[facility]ORATORYCLIA [id number] [address] ESTIMATED GLOMERULAR FILTRATION RATE 105 mL/min/1.73m??? Normal >=60 [facility] Comment on above: Order Comment: Shira feldman Type: BLOOD SPECIMENOrdering Facility: [facility] Address: [address] [place] [address] Result Comment: Luzmaria mated Glomerular Filtration Rate [...] GFR. Performed By: #### 2 4321-2 ####[facility] LABORATORYCLIA [id number] [address] STATES OF [facility] Glucose [Mass/Vol] 118 mg/dL High 74-99 [facility] Comment on above: Order Comment: Shira francia Type: BLOOD SPECIMENOrdering Facility: [facility] Address: [address] [place] [address] Result Comment: The [place] [employer] (ADA) provides guidance for cutoff [...] Standards of Medical Care in Diabetes 2016, [place] [employer]. Diabetes Care. 2016.39(Suppl 1). Performed By: #### 2 4321-2 ####[facility]ORATORYCLIA [id number] [place] [address] [place] Potassium [Moles/Vol] 3.7 mmol/L Normal 3.7-5.1 [facility] Comment on above: Order Comment: Speci men Type: BLOOD SPECIMENOrdering Facility: [facility] Address: [address] [place] [address] Performed By: #### 2 4321-2 ####[facility]ORATORYCLIA [id number] [place] [address] [place] Sodium [Moles/Vol] 137 mmol/L Normal 136-144 [facility] Comment on above: Order Comment: Speci men Type: BLOOD SPECIMENOrdering Facility: [facility] Address: [address] [place] [address] Performed By: #### 2 4321-2 ####[facility]ATORYCLIA [id number] [place] [address] [place] [place] Urea nitrogen [Mass/Vol] 23 mg/dL Normal 9-24 [facility] Comment on above: Order Comment: Speci men Type: BLOOD SPECIMENOrdering Facility: [facility] Address: [address] [place] [address] Performed By: #### 2 4321-2 ####[facility]ORYCLIA [id number] [place] [address] [place] Anion gap [Moles/Vol] 17 mmol/L Normal 9-18 [facility] Comment on above: Order Comment: Speci men Type: BLOOD SPECIMENOrdering Facility: [facility] Address: [address] [place] [address] Performed By: #### 1 9123-9, 2777-1, 10108-2 ####[facility]ATORYCLIA [id number] [place] [address] [place] Calcium [Mass/Vol] 7.7 mg/dL Low 8.5-10.2 [facility] Comment on above: Order Comment: Speci men Type: BLOOD SPECIMENOrdering Facility: [facility] Address: [address] [place] [address] Performed By: #### 1 9123-9, 27711-04, 74080-0 ####[facility]ORYCLIA [id number] [place] [address] [place] Chloride [Moles/Vol] 86 mmol/L Low 97-105 [facility] Comment on above: Order Comment: Speci men Type: BLOOD SPECIMENOrdering Facility: [facility] Address: [address] [place] [address] Performed By: #### 1 9123-9, 27711-04, 56712-2 ####[facility]ORYCLIA [id number] [address] [place] CO2 [Moles/Vol] 24 mmol/L Normal 22-30 [facility] Comment on above: Order Comment: Speci men Type: BLOOD SPECIMENOrdering Facility: [facility] Address: [address] [place] [address] Performed By: #### 1 9123-9, 27711-04, 24956-3 ####[facility]ORYCLIA [id number] [place] [address] [place] Creatinine [Mass/Vol] 0.53 mg/dL Low 0.73-1.22 [facility] Comment on above: Order Comment: Speci men Type: BLOOD SPECIMENOrdering Facility: [facility] Address: [address] [place] [address] Performed By: #### 1 9123-9, 27711-04, 96562-0 ####[facility]ATORYCLIA [id number] [address] [place] ESTIMATED GLOMERULAR FILTRATION RATE 108 mL/min/1.73m??? Normal >=60 [facility] Comment on above: Order Comment: Shira feldman Type: BLOOD SPECIMENOrdering Facility: [facility] Address: [address] [place] [address] Result Comment: Luzmaria mated Glomerular Filtration Rate [...] GFR. Performed By: #### 1 9123-9, 2777-1, 94432-4 ####[facility] [id number] [place] [address] [place] Glucose [Mass/Vol] 455 mg/dL High 74-99 [facility] Comment on above: Order Comment: Shira feldman Type: BLOOD SPECIMENOrdering Facility: [facility] Address: [address] [place] [address] Result Comment: The [place] [employer] (ADA) provides guidance for cutoff [...] Standards of Medical Care in Diabetes 2016, [place] [employer]. Diabetes Care. 2016.39(Suppl 1). Performed By: #### 1 9123-9, 2777-1, 92221-5 ####[facility]ATORYCLIA [id number] [place] [address] [place] Potassium [Moles/Vol] 3.4 mmol/L Low 3.7-5.1 [facility] Comment on above: Order Comment: Shira [facility] Type: BLOOD SPECIMENOrdering Facility: [facility] Address: [address] [place] [address] Performed By: #### 1 9123-9, 2777-1, 47607-6 ####[facility]ORYCLIA [id number] [address] [place] Sodium [Moles/Vol] 127 mmol/L Low 136-144 [facility] Comment on above: Order Comment: Speci men Type: BLOOD SPECIMENOrdering Facility: [facility] Address: [address] [place] [address] Performed By: #### 1 9123-9, 2777-1, 88590-3 ####[facility]ORYCLIA [id number] [address] [place] Urea nitrogen [Mass/Vol] 21 mg/dL Normal 9-24 [facility] Comment on above: Order Comment: Speci men Type: BLOOD SPECIMENOrdering Facility: [facility] Address: [address] [place] [address] Performed By: #### 1 9123-9, 2777-, 18879-9 ####[facility]ORYCLIA [id number] [address] [place] CASE MANAGEMon 08-10-[address] [facility] CBC W Auto Differential pane l (Bld)on 08-10-2021 Basophils (Bld) [#/Vol] 0.04 10*3/uL Normal <0.11 [facility] Comment on above: Order Comment: Speci men Type: BLOOD SPECIMENOrdering Facility: [facility] Address: [address] [place] [address] Performed By: #### 5 7021-8 ####[facility]ORYCLIA [id number] [address] [place] Basophils/100 WBC (Bld) 0.4 % Normal [facility] Comment on above: Order Comment: Speci men Type: BLOOD SPECIMENOrdering Facility: [facility] Address: [address] [place] [address] Performed By: #### 5 7021-8 ####[facility]ORYCLIA [id number] [address] Differential cell count method Nom (Bld) Auto Normal [facility] Comment on above: Order Comment: Speci men Type: BLOOD SPECIMENOrdering Facility: [facility] Address: [address] [place] [address] Performed By: #### 5 7021-8 ####[facility]ORYCLIA [id number] [address] Eosinophils (Bld) [#/Vol] 0.11 10*3/uL Normal <0.46 [facility] Comment on above: Order Comment: Speci men Type: BLOOD SPECIMENOrdering Facility: [facility] Address: [address] [place] [address] Performed By: #### 5 7021-8 ####[facility]ORYCLIA [id number] [address] Eosinophils/100 WBC (Bld) 1.1 % Normal [facility] Comment on above: Order Comment: Speci men Type: BLOOD SPECIMENOrdering Facility: [facility] Address: [address] [place] [address] Performed By: #### 5 7021-8 ####[facility]ORYCLIA [id number] [address] Erythrocyte distribution width (RBC) [Ratio] 17.2 % High 11.5-15.0 [facility] Comment on above: Order Comment: Speci men Type: BLOOD SPECIMENOrdering Facility: [facility] Address: [address] [place] [address] Performed By: #### 5 7021-8 ####[facility]ORYCLIA [id number] [address] Hematocrit (Bld) [Volume fraction] 25.5 % Low 39.0-51.0 [facility] Comment on above: Order Comment: Speci men Type: BLOOD SPECIMENOrdering Facility: [facility] Address: [address] [place] [address] Performed By: #### 5 7021-8 ####[facility]ORYCLIA [id number] [address] Hemoglobin (Bld) [Mass/Vol] 7.9 g/dL Low 13.0-17.0 [facility] Comment on above: Order Comment: Speci men Type: BLOOD SPECIMENOrdering Facility: [facility] Address: [address] [place] [address] Performed By: #### 5 7021-8 ####[facility]ATORYCLIA [id number] [address] IMMATURE GRAN % 0.4 % Normal [facility] Comment on above: Order Comment: Speci men Type: BLOOD SPECIMENOrdering Facility: [facility] Address: [address] [place] [address] Performed By: #### 5 7021-8 ####[facility]ORYCLIA [id number] [address] IMMATURE GRAN ABS 0.04 k/uL Normal <0.10 [facility] Comment on above: Order Comment: Speci men Type: BLOOD SPECIMENOrdering Facility: [facility] Address: [address] [place] [address] Performed By: #### 5 7021-8 ####[facility]ORYCLIA [id number] [address] Lymphocytes (Bld) [#/Vol] 1.66 10*3/uL Normal 1.00-4.00 [facility] Comment on above: Order Comment: Speci men Type: BLOOD SPECIMENOrdering Facility: [facility] Address: [address] [place] [address] Performed By: #### 5 7021-8 ####[facility]ORYCLIA [id number] [address] Lymphocytes/100 WBC (Bld) 16.2 % Normal [facility] Comment on above: Order Comment: Speci men Type: BLOOD SPECIMENOrdering Facility: [facility] Address: [address] [place] [address] Performed By: #### 5 7021-8 ####[facility]ORYCLIA [id number] [address] MCH (RBC) [Entitic mass] 28.5 pg Normal 26.0-34.0 [facility] Comment on above: Order Comment: Speci men Type: BLOOD SPECIMENOrdering Facility: [facility] Address: [address] [place] [address] Performed By: #### 5 7021-8 ####[facility]ORYCLIA [id number] [address] MCHC (RBC) [Mass/Vol] 31.0 g/dL Normal 30.5-36.0 [facility] Comment on above: Order Comment: Speci men Type: BLOOD SPECIMENOrdering Facility: [facility] Address: [address] [place] [address] Performed By: #### 5 7021-8 ####[facility]ORYCLIA [id number] [address] MCV (RBC) [Entitic vol] 92.1 fL Normal 80.0-100.0 [facility] Comment on above: Order Comment: Speci men Type: BLOOD SPECIMENOrdering Facility: [facility] Address: [address] [place] [address] Performed By: #### 5 7021-8 ####[facility]ORYCLIA [id number] [address] Monocytes (Bld) [#/Vol] 0.51 10*3/uL Normal <0.87 [facility] Comment on above: Order Comment: Speci men Type: BLOOD SPECIMENOrdering Facility: [facility] Address: [address] [place] [address] Performed By: #### 5 7021-8 ####[facility]CL[facility] [id number] [address] [place] Monocytes/100 WBC (Bld) 5.0 % Normal [facility] Comment on above: Order Comment: Speci men Type: BLOOD SPECIMENOrdering Facility: [facility] Address: [address] [place] [address] Performed By: #### 5 7021-8 ####[facility]ATORYCLIA [id number] [place] [address] [place] Neutrophils (Bld) [#/Vol] 7.91 10*3/uL High 1.45-7.50 [facility] Comment on above: Order Comment: Speci men Type: BLOOD SPECIMENOrdering Facility: [facility] Address: [address] [place] [address] Performed By: #### 5 7021-8 ####[facility]ORYCLIA [id number] [address] Neutrophils/100 WBC (Bld) 76.9 % Normal [facility] Comment on above: Order Comment: Speci men Type: BLOOD SPECIMENOrdering Facility: [facility] Address: [address] [place] [address] Performed By: #### 5 7021-8 ####[facility]ORYCLIA [id number] [address] [place] Nucleated RBC (Bld) [#/Vol] 10*3/uL Normal <0.01 [facility] Comment on above: Order Comment: Speci men Type: BLOOD SPECIMENOrdering Facility: [facility] Address: [address] [place] [address] Performed By: #### 5 7021-8 ####[facility]ORYCLIA [id number] [address] [place] Nucleated RBC/100 WBC (Bld) [Ratio] 0.0 /[address] [facility] Comment on above: Order Comment: Speci men Type: BLOOD SPECIMENOrdering Facility: [facility] Address: [address] Performed By: #### 5 7021-8 ####[facility]ORYCLIA [id number] [address] Platelet mean volume (Bld) [Entitic vol] 10.3 fL Normal 9.0-12.7 [facility] Comment on above: Order Comment: Speci men Type: BLOOD SPECIMENOrdering Facility: [facility] Address: [address] [place], [place] [address] Performed By: #### 5 7021-8 ####[facility]ORYCLIA [id number] [address] [place] Platelets (Bld) [#/Vol] 152 10*3/uL Normal 150-400 [facility] Comment on above: Order Comment: Speci men Type: BLOOD SPECIMENOrdering Facility: [facility] Address: [address] [place], [place] [address] Performed By: #### 5 7021-8 ####[facility]ORYCLIA [id number] [address] [place] RBC (Bld) [#/Vol] 2.77 10*6/uL Low 4.20-6.00 [facility] Comment on above: Order Comment: Speci men Type: BLOOD SPECIMENOrdering Facility: [facility] Address: [address] [place], [place] [address] Performed By: #### 5 7021-8 ####[facility]ORYCLIA [id number] [address] [place] WBC (Bld) [#/Vol] 10.27 10*3/uL Normal 3.70-11.00 [facility] Comment on above: Order Comment: Speci men Type: BLOOD SPECIMENOrdering Facility: [facility] Address: [address] [place], [place] [address] Performed By: #### 5 7021-8 ####[facility]ORYCLIA [id number] [address] Magnesium SerPl-mCncon 08-10 Magnesium [Mass/Vol] 1.8 mg/dL Normal 1.7-2.3 [facility] Comment on above: Order Comment: Speci men Type: BLOOD SPECIMENOrdering Facility: [facility] Address: [address] [place] [address] Performed By: #### 1 9123-9, 2777-1, 64062-6 ####[facility]ATORYCLIA [id number] [address] NURSING PROGon 08-10-[address] [facility] NURSING PROG Normal [facility] NUTRITIONon 08-10-[address] [facility] Phosphate SerPl-mCncon 08-10 Phosphate [Mass/Vol] 3.7 mg/dL Normal 2.7-4.8 [facility] Comment on above: Order Comment: Speci men Type: BLOOD SPECIMENOrdering Facility: [facility] Address: [address] [place] [address] Performed By: #### 1 9123-9, 2777-1, 95012-8 ####[facility]ORYCLIA [id number] [address] ALLIED HEALTHon 08-09-[address] [facility] ANES POSTPROC EVALon 022 [address]ES [address]PROC EVAL Normal [facility] ANES PRE-OPon 08-09-2021 ANES PRE-OP Normal [facility] BRIEF OP NOTon 08-09-[address] NOT Normal [facility] Basic metabolic 2000 panelon 08-09-2021 Anion gap [Moles/Vol] 8 mmol/L Low 9-18 [facility] Comment on above: Order Comment: Speci men Type: BLOOD SPECIMENOrdering Facility: [facility] Address: [address] [place] [address] Performed By: #### 2 4321-2, 87483-8, 2777-1 ####[facility]ORYCLIA [id number] [address] STATES OF [facility] Calcium [Mass/Vol] 9.2 mg/dL Normal 8.5-10.2 [facility] Comment on above: Order Comment: Speci men Type: BLOOD SPECIMENOrdering Facility: [facility] Address: [address] [place] [address] Performed By: #### 2 4321-2, , 2776-05 ####[facility]ORYCLIA [id number] [place] [address] [place] Chloride [Moles/Vol] 97 mmol/L Normal 97-105 [facility] Comment on above: Order Comment: Speci men Type: BLOOD SPECIMENOrdering Facility: [facility] Address: [address] [place] [address] Performed By: #### 2 4321-2, , 2776-05 ####[facility]ORYCLIA [id number] [address] STATES OF [facility] CO2 [Moles/Vol] 30 mmol/L Normal 22-30 [facility] Comment on above: Order Comment: Speci men Type: BLOOD SPECIMENOrdering Facility: [facility] Address: [address] [place] [address] Performed By: #### 2 4321-2, , 2776-05 ####[facility]ORYCLIA [id number] [address] [place] Creatinine [Mass/Vol] 0.51 mg/dL Low 0.73-1.22 [facility] Comment on above: Order Comment: Speci men Type: BLOOD SPECIMENOrdering Facility: [facility] Address: [address] [place] [address] Performed By: #### 2 4321-2, , 2776-05 ####[facility]ORYCLIA [id number] [address] [place] ESTIMATED GLOMERULAR FILTRATION RATE 110 mL/min/1.73m??? Normal >=60 [facility] Comment on above: Order Comment: Shira feldman Type: BLOOD SPECIMENOrdering Facility: [facility] Address: [address] [place] [address] Result Comment: Luzmaria mated Glomerular Filtration Rate [...] actual GFR. Performed By: #### 2 4321-2, 28316-3, 2776-05 ####[facility]ATORYCLIA [id number] [place] [address] [place] Glucose [Mass/Vol] 106 mg/dL High 74-99 [facility] Comment on above: Order Comment: Shira feldman Type: BLOOD SPECIMENOrdering Facility: [facility] Address: [address] [place] [address] Result Comment: The [place] [employer] (ADA) provides guidance for cutoff [...] Standards of Medical Care in Diabetes 2016, [place] [employer]. Diabetes Care. 2016.39(Suppl 1). Performed By: #### 2 4321-2, , 2776-05 ####[facility]ORYCLIA [id number] [place] [address] [place] Potassium [Moles/Vol] 4.1 mmol/L Normal 3.7-5.1 [facility] Comment on above: Order Comment: Shira feldman Type: BLOOD SPECIMENOrdering Facility: [facility] Address: [address] [place] [address] Performed By: #### 2 4321-2, , 1 ####[facility]ORYCLIA [id number] [address] STATES OF [facility] Sodium [Moles/Vol] 135 mmol/L Low 136-144 [facility] Comment on above: Order Comment: Speci men Type: BLOOD SPECIMENOrdering Facility: [facility] Address: [address] [place] [address] Performed By: #### 2 4321-2, , 2776-05 ####[facility]ORYCLIA [id number] [address] [place] Urea nitrogen [Mass/Vol] 26 mg/dL High 9-24 [facility] Comment on above: Order Comment: Speci men Type: BLOOD SPECIMENOrdering Facility: [facility] Address: [address] [place] [address] Performed By: #### 2 4321-2, , 2776-05 ####[facility]ORYCLIA [id number] [address] [place] CBC W Auto Differential pane l (Bld)on 08-09-2021 Basophils (Bld) [#/Vol] 0.06 10*3/uL Normal <0.11 [facility] Comment on above: Order Comment: Speci men Type: BLOOD SPECIMENOrdering Facility: [facility] Address: [address] [place] [address] Performed By: #### 5 7021-8 ####[facility]ORYCLIA [id number] [address] [place] Basophils/100 WBC (Bld) 0.5 % Normal [facility] Comment on above: Order Comment: Speci men Type: BLOOD SPECIMENOrdering Facility: [facility] Address: [address] [place] [address] Performed By: #### 5 7021-8 ####[facility]ORYCLIA [id number] [address] Differential cell count method Nom (Bld) Auto Normal [facility] Comment on above: Order Comment: Speci men Type: BLOOD SPECIMENOrdering Facility: [facility] Address: [address] [place] [address] Performed By: #### 5 7021-8 ####[facility]ORYCLIA [id number] [address] [place] Eosinophils (Bld) [#/Vol] 0.42 10*3/uL Normal <0.46 [facility] Comment on above: Order Comment: Speci men Type: BLOOD SPECIMENOrdering Facility: [facility] Address: [address] [place] [address] Performed By: #### 5 7021-8 ####[facility]ORYCLIA [id number] [address] Eosinophils/100 WBC (Bld) 3.8 % Normal [facility] Comment on above: Order Comment: Speci men Type: BLOOD SPECIMENOrdering Facility: [facility] Address: [address] [place] [address] Performed By: #### 5 7021-8 ####[facility]ORYCLIA [id number] [address] [place] Erythrocyte distribution width (RBC) [Ratio] 17.6 % High 11.5-15.0 [facility] Comment on above: Order Comment: Speci men Type: BLOOD SPECIMENOrdering Facility: [facility] Address: [address] [place] [address] Performed By: #### 5 7021-8 ####[facility]ORYCLIA [id number] [address] Hematocrit (Bld) [Volume fraction] 29.3 % Low 39.0-51.0 [facility] Comment on above: Order Comment: Speci men Type: BLOOD SPECIMENOrdering Facility: [facility] Address: [address] [place] [address] Performed By: #### 5 7021-8 ####[facility]ORYCLIA [id number] [address] STATES OF [facility] Hemoglobin (Bld) [Mass/Vol] 9.0 g/dL Low 13.0-17.0 [facility] Comment on above: Order Comment: Speci men Type: BLOOD SPECIMENOrdering Facility: [facility] Address: [address] [place] [address] Performed By: #### 5 7021-8 ####[facility]ORYCLIA [id number] [address] IMMATURE GRAN % 0.5 % Normal [facility] Comment on above: Order Comment: Speci men Type: BLOOD SPECIMENOrdering Facility: [facility] Address: [address] [place] [address] Performed By: #### 5 7021-8 ####[facility]ORYCLIA [id number] [address] IMMATURE GRAN ABS 0.05 k/uL Normal <0.10 [facility] Comment on above: Order Comment: Speci men Type: BLOOD SPECIMENOrdering Facility: [facility] Address: [address] [place] [address] Performed By: #### 5 7021-8 ####[facility]ORYCLIA [id number] [address] [place] Lymphocytes (Bld) [#/Vol] 2.00 10*3/uL Normal 1.00-4.00 [facility] Comment on above: Order Comment: Speci men Type: BLOOD SPECIMENOrdering Facility: [facility] Address: [address] [place] [address] Performed By: #### 5 7021-8 ####[facility]ORYCLIA [id number] [address] Lymphocytes/100 WBC (Bld) 18.1 % Normal [facility] Comment on above: Order Comment: Speci men Type: BLOOD SPECIMENOrdering Facility: [facility] Address: [address] [place] [address] Performed By: #### 5 7021-8 ####[facility]ORYCLIA [id number] [address] MCH (RBC) [Entitic mass] 28.1 pg Normal 26.0-34.0 [facility] Comment on above: Order Comment: Speci men Type: BLOOD SPECIMENOrdering Facility: [facility] Address: [address] [place] [address] Performed By: #### 5 7021-8 ####[facility]ORYCLIA [id number] [address] MCHC (RBC) [Mass/Vol] 30.7 g/dL Normal 30.5-36.0 [facility] Comment on above: Order Comment: Speci men Type: BLOOD SPECIMENOrdering Facility: [facility] Address: [address] [place] [address] Performed By: #### 5 7021-8 ####[facility]ORYCLIA [id number] [address] [place] OF [facility] MCV (RBC) [Entitic vol] 91.6 fL Normal 80.0-100.0 [facility] Comment on above: Order Comment: Speci men Type: BLOOD SPECIMENOrdering Facility: [facility] Address: [address] [place] [address] Performed By: #### 5 7021-8 ####[facility] LABORATORYCLIA [id number] [address] Monocytes (Bld) [#/Vol] 0.68 10*3/uL Normal <0.87 [facility] Comment on above: Order Comment: Speci men Type: BLOOD SPECIMENOrdering Facility: [facility] Address: [address] [place] [address] Performed By: #### 5 7021-8 ####[facility] LABORATORYCLIA [id number] [address] Monocytes/100 WBC (Bld) 6.2 % Normal [facility] Comment on above: Order Comment: Speci men Type: BLOOD SPECIMENOrdering Facility: [facility] Address: [address] [place] [address] Performed By: #### 5 7021-8 ####[facility] LABORATORYCLIA [id number] [address] [place] Neutrophils (Bld) [#/Vol] 7.82 10*3/uL High 1.45-7.50 [facility] Comment on above: Order Comment: Speci men Type: BLOOD SPECIMENOrdering Facility: [facility] Address: [address] [place] [address] Performed By: #### 5 7021-8 ####[facility]ORATORYCLIA [id number] [address] [place] Neutrophils/100 WBC (Bld) 70.9 % Normal [facility] Comment on above: Order Comment: Speci men Type: BLOOD SPECIMENOrdering Facility: [facility] Address: [address] [place], [place] [address] Performed By: #### 5 7021-8 ####[facility]ORATORYCLIA [id number] [address] [place] Nucleated RBC (Bld) [#/Vol] 10*3/uL Normal <0.01 [facility] Comment on above: Order Comment: Speci men Type: BLOOD SPECIMENOrdering Facility: [facility] Address: [address] [place], [place] [address] Performed By: #### 5 7021-8 ####[facility]ORATORYCLIA [id number] [address] [place] Nucleated RBC/100 WBC (Bld) [Ratio] 0.0 /[address] [facility] Comment on above: Order Comment: Speci men Type: BLOOD SPECIMENOrdering Facility: [facility] Address: [address] [place] [address] Performed By: #### 5 7021-8 ####[facility]ORATORYCLIA [id number] [address] [place] Platelet mean volume (Bld) [Entitic vol] 10.1 fL Normal 9.0-12.7 [facility] Comment on above: Order Comment: Speci men Type: BLOOD SPECIMENOrdering Facility: [facility] Address: [address] [place] [address] Performed By: #### 5 7021-8 ####[facility] LABORATORYCLIA [id number] [address] [place] Platelets (Bld) [#/Vol] 160 10*3/uL Normal 150-400 [facility] Comment on above: Order Comment: Speci men Type: BLOOD SPECIMENOrdering Facility: [facility] Address: [address] [place] [address] Performed By: #### 5 7021-8 ####[facility] LABORATORYCLIA [id number] [place] [address] [place] RBC (Bld) [#/Vol] 3.20 10*6/uL Low 4.20-6.00 [facility] Comment on above: Order Comment: Speci men Type: BLOOD SPECIMENOrdering Facility: [facility] Address: [address] [place] [address] Performed By: #### 5 7021-8 ####[facility] LABORATORYCLIA [id number] [place] [address] [place] WBC (Bld) [#/Vol] 11.03 10*3/uL High 3.70-11.00 [facility] Comment on above: Order Comment: Speci men Type: BLOOD SPECIMENOrdering Facility: [facility] Address: [address] [place] [address] Performed By: #### 5 7021-8 ####[facility] LABORATORYCLIA [id number] [address] [place] CONSULT PROGon 08-09-[address] [facility] CT BRAIN WO IVCONon 08-10-[address] BRAIN WO IVCON Normal [facility] CT BRAIN WO IVCON Normal [facility] Magnesium SerPl-mCncon 08-09 Magnesium [Mass/Vol] 2.0 mg/dL Normal 1.7-2.3 [facility] Comment on above: Order Comment: Speci men Type: BLOOD SPECIMENOrdering Facility: [facility] Address: [address] [place] [address] Performed By: #### 2 4321-2, 71650-6, 2777-1 ####[facility] LABORATORYCLIA [id number] [address] OF [facility] NURSING PROGon 08-09-[address] [facility] OPERATIVE NOon 08-09-[address] [facility] PT panel Coag (PPP)on 2021 INR Coag (PPP) [Relative time] 1.1 {INR} Normal 0.9-1.3 [facility] Comment on above: Order Comment: Speci men Type: BLOOD SPECIMENOrdering Facility: [facility] Address: [address] [place] [address] Result Comment: Yris min K Antagonist (VKA) Therapeutic Range: INR 2 to 3 (Target INR of 2.5)Note: For patients treated with VKA drugs, such as warfarin, the [place] [employer] 2012 Guideline recommends [...] al. Chest 2012, 141:7S-47SAlba MURRY, et al. [facility] 2017, 70: 252-289 Performed By: #### 3 4528-0, 15491-5 ####[facility] LABORATORYCLIA [id number] [address] [place] PT Coag (PPP) [Time] 11.7 s Normal 9.7-13.0 [facility] Comment on above: Order Comment: Speci men Type: BLOOD SPECIMENOrdering Facility: [facility] Address: [address] [place] [address] Performed By: #### 3 4528-0, 61271-0 ####[facility] LABORATORYCLIA [id number] [address] [place] Phosphate SerPl-mCncon 08-09 Phosphate [Mass/Vol] 4.0 mg/dL Normal 2.7-4.8 [facility] Comment on above: Order Comment: Speci men Type: BLOOD SPECIMENOrdering Facility: [facility] Address: [address] [place] [address] Performed By: #### 2 4321-2, 97794-0, 2777-1 ####[facility] LABORATORYCLIA [id number] [address] [facility] THERAPY NTon 08-09-[address] [facility] THERAPY NT Normal [facility] TYPE AND SCREENon 08-09-[address] [facility] Comment on above: Order Comment: Speci men Type: BLOOD SPECIMENOrdering Facility: [facility] Address: [address] [place] [address] Performed By: #### T SCR ####[facility] BLOOD BANKCLIA [id number] [address] [place] HISTORICAL AB SCR STATUS Negative Normal [facility] Comment on above: Order Comment: Speci men Type: BLOOD SPECIMENOrdering Facility: [facility] Address: [address] [place] [address] Performed By: #### T SCR ####[facility] BLOOD BANKCLIA [id number] [address] Rh Nom (Bld) Positive Normal [facility] Comment on above: Order Comment: Speci men Type: BLOOD SPECIMENOrdering Facility: [facility] Address: [address] [place] [address] Performed By: #### T SCR ####[facility] BLOOD BANKCLIA [id number] [address] TYPE AND SCREEN EXPIRATION 08/12/2021 23:[address] [facility] Comment on above: Order Comment: Speci men Type: BLOOD SPECIMENOrdering Facility: [facility] Address: [address] [place] [address] Performed By: #### T SCR ####[facility] BLOOD BANKCLIA [id number] [address] XR ABD 2V SUPINE W UPR/DECUB /CTLon 08-09-2021 XR ABD 2V SUPINE W UPR/DECUB/CTL Normal [facility] XR CHEST 1V FRONTALon 2021 XR CHEST 1V FRONTAL Normal [facility] XR NECK SOFT TISSUE 2V AP/LA Ton 08-09-2021 XR NECK SOFT TISSUE 2V AP/LAT Normal [facility] XR SKULL 2V AP/LATon 022 XR SKULL 2V AP/LAT Normal [facility] aPTT PPPon 08-09-2021 aPTT Coag (PPP) [Time] 26.8 s Normal 23.0-32.4 [facility] Comment on above: Order Comment: Speci men Type: BLOOD SPECIMENOrdering Facility: [facility] Address: [address] [place] [address] Performed By: #### 3 4528-0, 41167-6 ####[facility] LABORATORYCLIA [id number] [address] CASE MANAGEMon 08-08-[address] [facility] CBC W Auto Differential pane l (Bld)on 08-08-2021 Basophils (Bld) [#/Vol] 0.05 10*3/uL Normal <0.11 [facility] Comment on above: Order Comment: Speci men Type: BLOOD SPECIMENOrdering Facility: [facility] Address: [address] [address] Performed By: #### 5 7021-8 ####[facility]ATORYCLIA [id number] [address] Basophils/100 WBC (Bld) 0.5 % Normal [facility] Comment on above: Order Comment: Speci men Type: BLOOD SPECIMENOrdering Facility: [facility] Address: [address] [place] [address] Performed By: #### 5 7021-8 ####[facility] LABORATORYCLIA [id number] [address] Differential cell count method Nom (Bld) Auto Normal [facility] Comment on above: Order Comment: Speci men Type: BLOOD SPECIMENOrdering Facility: [facility] Address: [address] [place] [address] Performed By: #### 5 7021-8 ####[facility] LABORATORYCLIA [id number] [address] [place] Eosinophils (Bld) [#/Vol] 0.17 10*3/uL Normal <0.46 [facility] Comment on above: Order Comment: Speci men Type: BLOOD SPECIMENOrdering Facility: [facility] Address: [address] [place] [address] Performed By: #### 5 7021-8 ####[facility]ATORYCLIA [id number] [address] Eosinophils/100 WBC (Bld) 1.6 % Normal [facility] Comment on above: Order Comment: Speci men Type: BLOOD SPECIMENOrdering Facility: [facility] Address: [address] [place] [address] Performed By: #### 5 7021-8 ####[facility]ATORYCLIA [id number] [address] [place] Erythrocyte distribution width (RBC) [Ratio] 17.8 % High 11.5-15.0 [facility] Comment on above: Order Comment: Speci men Type: BLOOD SPECIMENOrdering Facility: [facility] Address: [address] [place] [address] Performed By: #### 5 7021-8 ####[facility] LABORATORYCLIA [id number] [address] Hematocrit (Bld) [Volume fraction] 29.6 % Low 39.0-51.0 [facility] Comment on above: Order Comment: Speci men Type: BLOOD SPECIMENOrdering Facility: [facility] Address: [address] [place] [address] Performed By: #### 5 7021-8 ####[facility] LABORATORYCLIA [id number] [address] Hemoglobin (Bld) [Mass/Vol] 9.0 g/dL Low 13.0-17.0 [facility] Comment on above: Order Comment: Speci men Type: BLOOD SPECIMENOrdering Facility: [facility] Address: [address] [place] [address] Performed By: #### 5 7021-8 ####[facility] LABORATORYCLIA [id number] [address] IMMATURE GRAN % 0.5 % Normal [facility] Comment on above: Order Comment: Speci men Type: BLOOD SPECIMENOrdering Facility: [facility] Address: [address] [place] [address] Performed By: #### 5 7021-8 ####[facility] LABORATORYCLIA [id number] [address] IMMATURE GRAN ABS 0.05 k/uL Normal <0.10 [facility] Comment on above: Order Comment: Speci men Type: BLOOD SPECIMENOrdering Facility: [facility] Address: [address] [place] [address] Performed By: #### 5 7021-8 ####[facility] LABORATORYCLIA [id number] [place] [address] [place] Lymphocytes (Bld) [#/Vol] 1.93 10*3/uL Normal 1.00-4.00 [facility] Comment on above: Order Comment: Speci men Type: BLOOD SPECIMENOrdering Facility: [facility] Address: [address] [place] [address] Performed By: #### 5 7021-8 ####[facility] LABORATORYCLIA [id number] [address] [place] Lymphocytes/100 WBC (Bld) 18.2 % Normal [facility] Comment on above: Order Comment: Speci men Type: BLOOD SPECIMENOrdering Facility: [facility] Address: [address] [place] [address] Performed By: #### 5 7021-8 ####[facility] LABORATORYCLIA [id number] [address] [place] MCH (RBC) [Entitic mass] 28.1 pg Normal 26.0-34.0 [facility] Comment on above: Order Comment: Speci men Type: BLOOD SPECIMENOrdering Facility: [facility] Address: [address] [place] [address] Performed By: #### 5 7021-8 ####[facility] LABORATORYCLIA [id number] [address] [place] MCHC (RBC) [Mass/Vol] 30.4 g/dL Low 30.5-36.0 [facility] Comment on above: Order Comment: Speci men Type: BLOOD SPECIMENOrdering Facility: [facility] Address: [address] [place] [address] Performed By: #### 5 7021-8 ####[facility] LABORATORYCLIA [id number] [address] MCV (RBC) [Entitic vol] 92.5 fL Normal 80.0-100.0 [facility] Comment on above: Order Comment: Speci men Type: BLOOD SPECIMENOrdering Facility: [facility] Address: [address] [place] [address] Performed By: #### 5 7021-8 ####[facility]ATORYCLIA [id number] [place] [address] [place] Monocytes (Bld) [#/Vol] 0.75 10*3/uL Normal <0.87 [facility] Comment on above: Order Comment: Speci men Type: BLOOD SPECIMENOrdering Facility: [facility] Address: [address] [place] [address] Performed By: #### 5 7021-8 ####[facility]ORYCLIA [id number] [address] [place] Monocytes/100 WBC (Bld) 7.1 % Normal [facility] Comment on above: Order Comment: Speci men Type: BLOOD SPECIMENOrdering Facility: [facility] Address: [address] [place] [address] Performed By: #### 5 7021-8 ####[facility] LABORATORYCLIA [id number] [address] [place] Neutrophils (Bld) [#/Vol] 7.65 10*3/uL High 1.45-7.50 [facility] Comment on above: Order Comment: Speci men Type: BLOOD SPECIMENOrdering Facility: [facility] Address: [address] [place] [address] Performed By: #### 5 7021-8 ####[facility]ORYCLIA [id number] [address] [place] Neutrophils/100 WBC (Bld) 72.1 % Normal [facility] Comment on above: Order Comment: Speci men Type: BLOOD SPECIMENOrdering Facility: [facility] Address: [address] [place] [address] Performed By: #### 5 7021-8 ####[facility] LABORATORYCLIA [id number] [place] [address] [place] Nucleated RBC (Bld) [#/Vol] 10*3/uL Normal <0.01 [facility] Comment on above: Order Comment: Speci men Type: BLOOD SPECIMENOrdering Facility: [facility] Address: [address] [place] [address] Performed By: #### 5 7021-8 ####[facility] LABORATORYCLIA [id number] [address] Nucleated RBC/100 WBC (Bld) [Ratio] 0.0 /[address] [facility] Comment on above: Order Comment: Speci men Type: BLOOD SPECIMENOrdering Facility: [facility] Address: [address] [place] [address] Performed By: #### 5 7021-8 ####[facility] LABORATORYCLIA [id number] [address] [place] Platelet mean volume (Bld) [Entitic vol] 9.8 fL Normal 9.0-12.7 [facility] Comment on above: Order Comment: Speci men Type: BLOOD SPECIMENOrdering Facility: [facility] Address: [address] [place] [address] Performed By: #### 5 7021-8 ####[facility] LABORATORYCLIA [id number] [address] [place] Platelets (Bld) [#/Vol] 175 10*3/uL Normal 150-400 [facility] Comment on above: Order Comment: Speci men Type: BLOOD SPECIMENOrdering Facility: [facility] Address: [address] [place] [address] Performed By: #### 5 7021-8 ####[facility] LABORATORYCLIA [id number] [address] [place] RBC (Bld) [#/Vol] 3.20 10*6/uL Low 4.20-6.00 [facility] Comment on above: Order Comment: Speci men Type: BLOOD SPECIMENOrdering Facility: [facility] Address: [address] [place] [address] Performed By: #### 5 7021-8 ####[facility] LABORATORYCLIA [id number] [address] [place] WBC (Bld) [#/Vol] 10.60 10*3/uL Normal 3.70-11.00 [facility] Comment on above: Order Comment: Speci men Type: BLOOD SPECIMENOrdering Facility: [facility] Address: [address] [place] [address] Performed By: #### 5 7021-8 ####[facility] LABORATORYCLIA [id number] [address] [place] CT BRAIN WO IVCONon 08-09-19 CT BRAIN WO IVCON Normal [facility] NURSING PROGon 08-08-[address] [facility] Prealbumin [Mass/Vol]on Prealbumin Nephelometry [Mass/Vol] 29 mg/dL Normal 17-36 [facility] Comment on above: Order Comment: Speci men Type: BLOOD SPECIMENOrdering Facility: [facility] Address: [address] [place] [address] Performed By: #### 1 4338-8 ####[facility] LABORATORYCLIA [id number] [address] OF [facility] SARS-CoV-2 RNA Resp Ql MEGAN+p robeon 08-08-2021 SARS-CoV-2 (COVID-19) RNA MEGAN+probe Ql (Resp) COVID 19 RESULT: SARS-CoV-2 (Agent of COVID-19) Not Detected by RT-PCR or equivalent method. This test has been authorized by FDA under an Emergency Use Authorization (EUA). Normal [facility] Comment on above: Performed By: #### 9 4500-6 ####[facility] LABORATORYCLIA [id number] [address] [place] ALLIED HEALTHon 08-07-[address] [facility] Basic metabolic 2000 panelon 08-07-2021 Anion gap [Moles/Vol] 9 mmol/L Normal 9-18 [facility] Comment on above: Order Comment: Speci men Type: BLOOD SPECIMENOrdering Facility: [facility] Address: [address] Performed By: #### 2 4321-2, 2776-, , HFP ####[facility] LABORATORYCLIA [id number] [place] [address] [place] Calcium [Mass/Vol] 9.4 mg/dL Normal 8.5-10.2 [facility] Comment on above: Order Comment: Speci men Type: BLOOD SPECIMENOrdering Facility: [facility] Address: [address] [place] [address] Performed By: #### 2 4321-2, 2776-05, , HFP ####[facility] LABORATORYCLIA [id number] [place] [address] [place] Chloride [Moles/Vol] 98 mmol/L Normal 97-105 [facility] Comment on above: Order Comment: Speci men Type: BLOOD SPECIMENOrdering Facility: [facility] Address: [address] [place] [address] Performed By: #### 2 4321-2, 2776-05, , HFP ####[facility] LABORATORYCLIA [id number] [place] [address] [place] CO2 [Moles/Vol] 29 mmol/L Normal 22-30 [facility] Comment on above: Order Comment: Speci men Type: BLOOD SPECIMENOrdering Facility: [facility] Address: [address] [place], [place] [address] Performed By: #### 2 4321-2, 2776-05, , HFP ####[facility] LABORATORYCLIA [id number] [place] [address] [place] Creatinine [Mass/Vol] 0.67 mg/dL Low 0.73-1.22 [facility] Comment on above: Order Comment: Speci men Type: BLOOD SPECIMENOrdering Facility: [facility] Address: [address] [place], [place] [address] Performed By: #### 2 4321-2, 2776-, , HFP ####[facility] HOSPITALIA [id number] [place] [address] [facility] ESTIMATED GLOMERULAR FILTRATION RATE 101 mL/min/1.73m??? Normal >=60 [facility] Comment on above: Order Comment: Shira feldman Type: BLOOD SPECIMENOrdering Facility: [facility] Address: [address] [place] [address] Result Comment: Luzmaria mated Glomerular Filtration Rate [...] Performed By: #### 2 4321-2, 2777-, , [facility] ####[facility] [id number] [place] [id number] [facility] Glucose [Mass/Vol] 117 mg/dL High 74-99 [facility] Comment on above: Order Comment: Johncara feldman Type: BLOOD SPECIMENOrdering Facility: [facility] Address: [address] [place] [address] Result Comment: The [place] [employer] (ADA) provides guidance for cutoff [...] Standards of Medical Care in Diabetes 2016, [place] [employer]. Diabetes Care. 2016.39(Suppl 1). Performed By: #### 2 4321-2, 2777-, , [facility] ####[facility] HOSPITALIA [id number] [place] [address] [place] Potassium [Moles/Vol] 4.1 mmol/L Normal 3.7-5.1 [facility] Comment on above: Order Comment: Speci men Type: BLOOD SPECIMENOrdering Facility: [facility] Address: [address] [place] [address] Performed By: #### 2 4321-2, 2777-1, , HFP ####[facility] LABORATORYCLIA [id number] [address] STATES [facility] Sodium [Moles/Vol] 136 mmol/L Normal 136-144 [facility] Comment on above: Order Comment: Speci men Type: BLOOD SPECIMENOrdering Facility: [facility] Address: [address] [place] [address] Performed By: #### 2 4321-2, 2776-, , HFP ####[facility] LABORATORYCLIA [id number] [address] STATES [facility] Urea nitrogen [Mass/Vol] 31 mg/dL High 9-24 [facility] Comment on above: Order Comment: Speci men Type: BLOOD SPECIMENOrdering Facility: [facility] Address: [address] [place] [address] Performed By: #### 2 4321-2, 2776-, , HFP ####[facility] LABORATORYCLIA [id number] [address] STATES OF [facility] CBC W Auto Differential pane l (Bld)on 08-07-2021 Basophils (Bld) [#/Vol] 0.03 10*3/uL Normal <0.11 [facility] Comment on above: Order Comment: Speci men Type: BLOOD SPECIMENOrdering Facility: [facility] Address: [address] [place] [address] Performed By: #### 5 7021-8 ####[facility] LABORATORYCLIA [id number] [address] Basophils/100 WBC (Bld) 0.3 % Normal [facility] Comment on above: Order Comment: Speci men Type: BLOOD SPECIMENOrdering Facility: [facility] Address: [address] [place] [address] Performed By: #### 5 7021-8 ####[facility] LABORATORYCLIA [id number] [address] Differential cell count method Nom (Bld) Auto Normal [facility] Comment on above: Order Comment: Speci men Type: BLOOD SPECIMENOrdering Facility: [facility] Address: [address] [place] [address] Performed By: #### 5 7021-8 ####[facility] LABORATORYCLIA [id number] [address] [place] Eosinophils (Bld) [#/Vol] 0.16 10*3/uL Normal <0.46 [facility] Comment on above: Order Comment: Speci men Type: BLOOD SPECIMENOrdering Facility: [facility] Address: [address] [place] [address] Performed By: #### 5 7021-8 ####[facility] LABORATORYCLIA [id number] [address] Eosinophils/100 WBC (Bld) 1.6 % Normal [facility] Comment on above: Order Comment: Speci men Type: BLOOD SPECIMENOrdering Facility: [facility] Address: [address] [place] [address] Performed By: #### 5 7021-8 ####[facility] LABORATORYCLIA [id number] [address] [place] Erythrocyte distribution width (RBC) [Ratio] 18.1 % High 11.5-15.0 [facility] Comment on above: Order Comment: Speci men Type: BLOOD SPECIMENOrdering Facility: [facility] Address: [address] [place] [address] Performed By: #### 5 7021-8 ####[facility] LABORATORYCLIA [id number] [address] [place] Hematocrit (Bld) [Volume fraction] 30.6 % Low 39.0-51.0 [facility] Comment on above: Order Comment: Speci men Type: BLOOD SPECIMENOrdering Facility: [facility] Address: [address] [place] [address] Performed By: #### 5 7021-8 ####[facility]ATORYCLIA [id number] [address] [place] Hemoglobin (Bld) [Mass/Vol] 9.4 g/dL Low 13.0-17.0 [facility] Comment on above: Order Comment: Speci men Type: BLOOD SPECIMENOrdering Facility: [facility] Address: [address] [place] [address] Performed By: #### 5 7021-8 ####[facility]ATORYCLIA [id number] [address] [place] IMMATURE GRAN % 0.4 % Normal [facility] Comment on above: Order Comment: Speci men Type: BLOOD SPECIMENOrdering Facility: [facility] Address: [address] [place] [address] Performed By: #### 5 7021-8 ####[facility]ATORYCLIA [id number] [address] IMMATURE GRAN ABS 0.04 k/uL Normal <0.10 [facility] Comment on above: Order Comment: Speci men Type: BLOOD SPECIMENOrdering Facility: [facility] Address: [address] [place] [address] Performed By: #### 5 7021-8 ####[facility]ATORYCLIA [id number] [address] [place] Lymphocytes (Bld) [#/Vol] 2.05 10*3/uL Normal 1.00-4.00 [facility] Comment on above: Order Comment: Speci men Type: BLOOD SPECIMENOrdering Facility: [facility] Address: [address] [place] [address] Performed By: #### 5 7021-8 ####[facility]ORYCLIA [id number] [address] Lymphocytes/100 WBC (Bld) 20.2 % Normal [facility] Comment on above: Order Comment: Speci men Type: BLOOD SPECIMENOrdering Facility: [facility] Address: [address] [place] [address] Performed By: #### 5 7021-8 ####[facility]ATORYCLIA [id number] [address] MCH (RBC) [Entitic mass] 28.8 pg Normal 26.0-34.0 [facility] Comment on above: Order Comment: Speci men Type: BLOOD SPECIMENOrdering Facility: [facility] Address: [address] [place] [address] Performed By: #### 5 7021-8 ####[facility]ATORYCLIA [id number] [address] MCHC (RBC) [Mass/Vol] 30.7 g/dL Normal 30.5-36.0 [facility] Comment on above: Order Comment: Speci men Type: BLOOD SPECIMENOrdering Facility: [facility] Address: [address] [place] [address] Performed By: #### 5 7021-8 ####[facility]ATORYCLIA [id number] [address] MCV (RBC) [Entitic vol] 93.9 fL Normal 80.0-100.0 [facility] Comment on above: Order Comment: Speci men Type: BLOOD SPECIMENOrdering Facility: [facility] Address: [address] [place] [address] Performed By: #### 5 7021-8 ####[facility]ATORYCLIA [id number] [address] Monocytes (Bld) [#/Vol] 0.64 10*3/uL Normal <0.87 [facility] Comment on above: Order Comment: Speci men Type: BLOOD SPECIMENOrdering Facility: [facility] Address: [address] [place] [address] Performed By: #### 5 7021-8 ####[facility]ATORYCLIA [id number] [address] [place] Monocytes/100 WBC (Bld) 6.3 % Normal [facility] Comment on above: Order Comment: Speci men Type: BLOOD SPECIMENOrdering Facility: [facility] Address: [address] [place] [address] Performed By: #### 5 7021-8 ####[facility] LABORATORYCLIA [id number] [place] [address] [place] Neutrophils (Bld) [#/Vol] 7.22 10*3/uL Normal 1.45-7.50 [facility] Comment on above: Order Comment: Speci men Type: BLOOD SPECIMENOrdering Facility: [facility] Address: [address] [place] [address] Performed By: #### 5 7021-8 ####[facility]ORYCLIA [id number] [address] [place] Neutrophils/100 WBC (Bld) 71.2 % Normal [facility] Comment on above: Order Comment: Speci men Type: BLOOD SPECIMENOrdering Facility: [facility] Address: [address] [place] [address] Performed By: #### 5 7021-8 ####[facility]ATORYCLIA [id number] [place] [address] [place] Nucleated RBC (Bld) [#/Vol] 10*3/uL Normal <0.01 [facility] Comment on above: Order Comment: Speci men Type: BLOOD SPECIMENOrdering Facility: [facility] Address: [address] [place] [address] Performed By: #### 5 7021-8 ####[facility]ATORYCLIA [id number] [place] [address] [place] Nucleated RBC/100 WBC (Bld) [Ratio] 0.0 /[address] [facility] Comment on above: Order Comment: Speci men Type: BLOOD SPECIMENOrdering Facility: [facility] Address: [address] [place] [address] Performed By: #### 5 7021-8 ####[facility]ORYCLIA [id number] [address] [place] Platelet mean volume (Bld) [Entitic vol] 9.9 fL Normal 9.0-12.7 [facility] Comment on above: Order Comment: Speci men Type: BLOOD SPECIMENOrdering Facility: [facility] Address: [address] [place], [place] [address] Performed By: #### 5 7021-8 ####[facility]ORYCLIA [id number] [address] [place] Platelets (Bld) [#/Vol] 227 10*3/uL Normal 150-400 [facility] Comment on above: Order Comment: Speci men Type: BLOOD SPECIMENOrdering Facility: [facility] Address: [address] [place] [address] Performed By: #### 5 7021-8 ####[facility]ATORYCLIA [id number] [place] [address] [place] RBC (Bld) [#/Vol] 3.26 10*6/uL Low 4.20-6.00 [facility] Comment on above: Order Comment: Speci men Type: BLOOD SPECIMENOrdering Facility: [facility] Address: [address] [place], [place] [address] Performed By: #### 5 7021-8 ####[facility]ATORYCLIA [id number] [address] [place] WBC (Bld) [#/Vol] 10.14 10*3/uL Normal 3.70-11.00 [facility] Comment on above: Order Comment: Speci men Type: BLOOD SPECIMENOrdering Facility: [facility] Address: [address] [place], [place] [address] Performed By: #### 5 7021-8 ####[facility]ATORYCLIA [id number] [address] BRAIN WO IVCONon 08-08-19 CT BRAIN WO IVCON Normal [facility] HEPATIC FUNCTION PNLon 08-07 Albumin [Mass/Vol] 3.6 g/dL Low 3.9-4.9 [facility] Comment on above: Order Comment: Speci men Type: BLOOD SPECIMENOrdering Facility: [facility] Address: [address] [place] [address] Performed By: #### 2 4321-2, 2777-1, , HFP ####[facility]ATORYCLIA [id number] [address] ALP [Catalytic activity/Vol] 124 U/L High 38-113 [facility] Comment on above: Order Comment: Speci men Type: BLOOD SPECIMENOrdering Facility: [facility] Address: [address] [place] [address] Performed By: #### 2 4321-2, 2777-1, , HFP ####[facility]ATORYCLIA [id number] [address] ALT With P-5'-P [Catalytic activity/Vol] 29 U/L Normal 10-54 [facility] Comment on above: Order Comment: Speci men Type: BLOOD SPECIMENOrdering Facility: [facility] Address: [address] [place] [address] Performed By: #### 2 4321-2, 2777-1, , HFP ####[facility]ATORYCLIA [id number] [address] AST With P-5'-P [Catalytic activity/Vol] 18 U/L Normal 14-40 [facility] Comment on above: Order Comment: Speci men Type: BLOOD SPECIMENOrdering Facility: [facility] Address: [address] [place] [address] Performed By: #### 2 4321-2, 277-, , HFP ####[facility]ATORYCLIA [id number] [place] [id number] [place] Bilirubin [Mass/Vol] 0.3 mg/dL Normal 0.2-1.3 [facility] Comment on above: Order Comment: Speci men Type: BLOOD SPECIMENOrdering Facility: [facility] Address: [address] [place], [place] [address] Performed By: #### 2 4321-2, 2776-05, , HFP ####[facility]ATORYCLIA [id number] [place] [address] [place] Bilirubin.conjugated [Mass/Vol] mg/dL Normal <0.2 [facility] Comment on above: Order Comment: Speci men Type: BLOOD SPECIMENOrdering Facility: [facility] Address: [address] [place] [address] Performed By: #### 2 4321-2, 2776-05, , HFP ####[facility]ATORYCLIA [id number] [place] [address] [place] Protein [Mass/Vol] 6.4 g/dL Normal 6.3-8.0 [facility] Comment on above: Order Comment: Speci men Type: BLOOD SPECIMENOrdering Facility: [facility] Address: [address] [place] [address] Performed By: #### 2 4321-2, 2776-05, , HFP ####[facility]ATORYCLIA [id number] [place] [address] [place] Magnesium SerPl-mCncon 08-07 Magnesium [Mass/Vol] 2.3 mg/dL Normal 1.7-2.3 [facility] Comment on above: Order Comment: Speci men Type: BLOOD SPECIMENOrdering Facility: [facility] Address: [address] [place] [address] Performed By: #### 2 4321-2, 2776-05, , HFP ####[facility]ATORYCLIA [id number] [place] [address] [place] NURSING PROGon 08-07-[address] [facility] Phosphate SerPl-mCncon 08-07 Phosphate [Mass/Vol] 3.5 mg/dL Normal 2.7-4.8 [facility] Comment on above: Order Comment: Speci men Type: BLOOD SPECIMENOrdering Facility: [facility] Address: [address] [place] [address] Performed By: #### 2 4321-2, 2776-05, , [facility] ####[facility]ORYCLIA [id number] [address] [place] ANES POSTPROC EVALon 0[address]PROC EVAL Normal [facility] Basic metabolic 2000 panelon 08-06-2021 Anion gap [Moles/Vol] 11 mmol/L Normal 9-18 [facility] Comment on above: Order Comment: Speci men Type: BLOOD SPECIMENOrdering Facility: [facility] Address: [address] [place] [address] Performed By: #### 2 4321-2, 2776-05, ####[facility]CL[facility] [id number] [place] [address] [place] Calcium [Mass/Vol] 8.2 mg/dL Low 8.5-10.2 [facility] Comment on above: Order Comment: Speci men Type: BLOOD SPECIMENOrdering Facility: [facility] Address: [address] [place] [address] Performed By: #### 2 4321-2, 2776-05, ####[facility]ATORYCLIA [id number] [place] [address] [place] Chloride [Moles/Vol] 100 mmol/L Normal 97-105 [facility] Comment on above: Order Comment: Speci men Type: BLOOD SPECIMENOrdering Facility: [facility] Address: [address] [place], [place] [address] Performed By: #### 2 4321-2, 2776-05, ####[facility]CLIA [id number] [place] [address] [place] [facility] CO2 [Moles/Vol] 23 mmol/L Normal 22-30 [facility] Comment on above: Order Comment: Speci men Type: BLOOD SPECIMENOrdering Facility: [facility] Address: [address] [place] [address] Performed By: #### 2 4321-2, 2776-05, ####[facility]CLIA [id number] [place] [phone] [place] [facility] Creatinine [Mass/Vol] 0.55 mg/dL Low 0.73-1.22 [facility] Comment on above: Order Comment: Speci men Type: BLOOD SPECIMENOrdering Facility: [facility] Address: [address] [place] [address] Performed By: #### 2 4321-2, 2776-05, ####[facility]CLIA [id number] [address] ESTIMATED GLOMERULAR FILTRATION RATE 107 mL/min/1.73m??? Normal >=60 [facility] Comment on above: Order Comment: Speci men Type: BLOOD SPECIMENOrdering Facility: [facility] Address: [address] [place] [address] Result Comment: Luzmaria mated Glomerular Filtration Rate [...] GFR. Performed By: #### 2 4321-2, 27711-04, ####[facility]ATORYCLIA [id number] [place] [phone] [place] Glucose [Mass/Vol] 275 mg/dL High 74-99 [facility] Comment on above: Order Comment: Shira feldman Type: BLOOD SPECIMENOrdering Facility: [facility] Address: [address] [place], [place] [phone] Result Comment: The [place] [employer] (ADA) provides guidance for cutoff [...] Standards of Medical Care in Diabetes 2016, [place] [employer]. Diabetes Care. 2016.39(Suppl 1). Performed By: #### 2 4321-2, 2776-05, ####[facility]ATORYCLIA [id number] [place] [address] [place] Potassium [Moles/Vol] 3.6 mmol/L Low 3.7-5.1 [facility] Comment on above: Order Comment: Shira feldman Type: BLOOD SPECIMENOrdering Facility: [facility] Address: [address] [place], [place] [address] Performed By: #### 2 4321-2, 27711-04, ####[facility]ATORYCLIA [id number] [place] [address] [place] Sodium [Moles/Vol] 134 mmol/L Low 136-144 [facility] Comment on above: Order Comment: Shira feldman Type: BLOOD SPECIMENOrdering Facility: [facility] Address: [address] [place], [place] [address] Performed By: #### 2 4321-2, 2776-05, ####[facility]ATORYCLIA [id number] [place] [address] [place] Urea nitrogen [Mass/Vol] 29 mg/dL High 9-24 [facility] Comment on above: Order Comment: Speci men Type: BLOOD SPECIMENOrdering Facility: [facility] Address: [address] [place] [address] Performed By: #### 2 4321-2, 2777-1, 22516-7 ####[facility]ATORYCLIA [id number] [place] [address] [place] CBC W Auto Differential pane l (Bld)on 08-06-2021 Basophils (Bld) [#/Vol] 0.03 10*3/uL Normal <0.11 [facility] Comment on above: Order Comment: Speci men Type: BLOOD SPECIMENOrdering Facility: [facility] Address: [address] [place] [address] Performed By: #### 5 7021-8 ####[facility]ORYCLIA [id number] [place] [address] [place] Basophils/100 WBC (Bld) 0.3 % Normal [facility] Comment on above: Order Comment: Speci men Type: BLOOD SPECIMENOrdering Facility: [facility] Address: [address] [place] [address] Performed By: #### 5 7021-8 ####[facility]ORYCLIA [id number] [address] STATES [facility] Differential cell count method Nom (Bld) Auto Normal [facility] Comment on above: Order Comment: Speci men Type: BLOOD SPECIMENOrdering Facility: [facility] Address: [address] [place] [address] Performed By: #### 5 7021-8 ####[facility]ORYCLIA [id number] [place] [address] [place] Eosinophils (Bld) [#/Vol] 0.18 10*3/uL Normal <0.46 [facility] Comment on above: Order Comment: Speci men Type: BLOOD SPECIMENOrdering Facility: [facility] Address: [address] [place] [address] Performed By: #### 5 7021-8 ####[facility]ORYCLIA [id number] [address] STATES [facility] Eosinophils/100 WBC (Bld) 1.6 % Normal [facility] Comment on above: Order Comment: Speci men Type: BLOOD SPECIMENOrdering Facility: [facility] Address: [address] [place] [address] Performed By: #### 5 7021-8 ####[facility]ORYCLIA [id number] [address] Erythrocyte distribution width (RBC) [Ratio] 17.9 % High 11.5-15.0 [facility] Comment on above: Order Comment: Speci men Type: BLOOD SPECIMENOrdering Facility: [facility] Address: [address] [place] [address] Performed By: #### 5 7021-8 ####[facility]ORYCLIA [id number] [address] Hematocrit (Bld) [Volume fraction] 27.6 % Low 39.0-51.0 [facility] Comment on above: Order Comment: Speci men Type: BLOOD SPECIMENOrdering Facility: [facility] Address: [address] [place] [address] Performed By: #### 5 7021-8 ####[facility]ORYCLIA [id number] [address] [place] Hemoglobin (Bld) [Mass/Vol] 8.5 g/dL Low 13.0-17.0 [facility] Comment on above: Order Comment: Speci men Type: BLOOD SPECIMENOrdering Facility: [facility] Address: [address] [place] [address] Performed By: #### 5 7021-8 ####[facility]ORYCLIA [id number] [address] [place] IMMATURE GRAN % 0.6 % Normal [facility] Comment on above: Order Comment: Speci men Type: BLOOD SPECIMENOrdering Facility: [facility] Address: [address] [place] [address] Performed By: #### 5 7021-8 ####[facility]ORYCLIA [id number] [address] IMMATURE GRAN ABS 0.07 k/uL Normal <0.10 [facility] Comment on above: Order Comment: Speci men Type: BLOOD SPECIMENOrdering Facility: [facility] Address: [address] [place] [address] Performed By: #### 5 7021-8 ####[facility]ORYCLIA [id number] [address] Lymphocytes (Bld) [#/Vol] 1.81 10*3/uL Normal 1.00-4.00 [facility] Comment on above: Order Comment: Speci men Type: BLOOD SPECIMENOrdering Facility: [facility] Address: [address] [place] [address] Performed By: #### 5 7021-8 ####[facility]ORYCLIA [id number] [address] Lymphocytes/100 WBC (Bld) 15.7 % Normal [facility] Comment on above: Order Comment: Speci men Type: BLOOD SPECIMENOrdering Facility: [facility] Address: [address] [place] [address] Performed By: #### 5 7021-8 ####[facility]ORYCLIA [id number] [address] STATES [facility] MCH (RBC) [Entitic mass] 28.6 pg Normal 26.0-34.0 [facility] Comment on above: Order Comment: Speci men Type: BLOOD SPECIMENOrdering Facility: [facility] Address: [address] [place] [address] Performed By: #### 5 7021-8 ####[facility]ORYCLIA [id number] [address] MCHC (RBC) [Mass/Vol] 30.8 g/dL Normal 30.5-36.0 [facility] Comment on above: Order Comment: Speci men Type: BLOOD SPECIMENOrdering Facility: [facility] Address: [address] [place] [address] Performed By: #### 5 7021-8 ####[facility]ORYCLIA [id number] [address] [place] MCV (RBC) [Entitic vol] 92.9 fL Normal 80.0-100.0 [facility] Comment on above: Order Comment: Speci men Type: BLOOD SPECIMENOrdering Facility: [facility] Address: [address] [place] [address] Performed By: #### 5 7021-8 ####[facility]ORYCLIA [id number] [address] [place] Monocytes (Bld) [#/Vol] 0.63 10*3/uL Normal <0.87 [facility] Comment on above: Order Comment: Speci men Type: BLOOD SPECIMENOrdering Facility: [facility] Address: [address] [place] [address] Performed By: #### 5 7021-8 ####[facility]ORYCLIA [id number] [address] Monocytes/100 WBC (Bld) 5.5 % Normal [facility] Comment on above: Order Comment: Speci men Type: BLOOD SPECIMENOrdering Facility: [facility] Address: [address] [place] [address] Performed By: #### 5 7021-8 ####[facility]ORYCLIA [id number] [address] [place] Neutrophils (Bld) [#/Vol] 8.78 10*3/uL High 1.45-7.50 [facility] Comment on above: Order Comment: Speci men Type: BLOOD SPECIMENOrdering Facility: [facility] Address: [address] [place] [address] Performed By: #### 5 7021-8 ####[facility]ORYCLIA [id number] [address] [place] Neutrophils/100 WBC (Bld) 76.3 % Normal [facility] Comment on above: Order Comment: Speci men Type: BLOOD SPECIMENOrdering Facility: [facility] Address: [address] [place] [address] Performed By: #### 5 7021-8 ####[facility]ORYCLIA [id number] [address] [place] Nucleated RBC (Bld) [#/Vol] 10*3/uL Normal <0.01 [facility] Comment on above: Order Comment: Speci men Type: BLOOD SPECIMENOrdering Facility: [facility] Address: [address] [place] [address] Performed By: #### 5 7021-8 ####[facility]ORYCLIA [id number] [address] Nucleated RBC/100 WBC (Bld) [Ratio] 0.0 /[address] [facility] Comment on above: Order Comment: Speci men Type: BLOOD SPECIMENOrdering Facility: [facility] Address: [address] [place] [address] Performed By: #### 5 7021-8 ####[facility]ORYCLIA [id number] [address] [place] Platelet mean volume (Bld) [Entitic vol] 9.9 fL Normal 9.0-12.7 [facility] Comment on above: Order Comment: Speci men Type: BLOOD SPECIMENOrdering Facility: [facility] Address: [address] [place] [address] Performed By: #### 5 7021-8 ####[facility]ORYCLIA [id number] [address] [place] Platelets (Bld) [#/Vol] 230 10*3/uL Normal 150-400 [facility] Comment on above: Order Comment: Speci men Type: BLOOD SPECIMENOrdering Facility: [facility] Address: [address] [place] [address] Performed By: #### 5 7021-8 ####[facility]ORYCLIA [id number] [address] RBC (Bld) [#/Vol] 2.97 10*6/uL Low 4.20-6.00 [facility] Comment on above: Order Comment: Speci men Type: BLOOD SPECIMENOrdering Facility: [facility] Address: [address] [place] [address] Performed By: #### 5 7021-8 ####[facility]ORYCLIA [id number] [address] WBC (Bld) [#/Vol] 11.50 10*3/uL High 3.70-11.00 [facility] Comment on above: Order Comment: Speci men Type: BLOOD SPECIMENOrdering Facility: [facility] Address: [address] [place] [address] Performed By: #### 5 7021-8 ####[facility]ORYCLIA [id number] [address] CONSULT PROGon 08-06-[address] [facility] Magnesium SerPl-mCncon 08-06 Magnesium [Mass/Vol] 1.9 mg/dL Normal 1.7-2.3 [facility] Comment on above: Order Comment: Speci men Type: BLOOD SPECIMENOrdering Facility: [facility] Address: [address] [place] [address] Performed By: #### 2 4321-2, 2777-1, 39249-6 ####[facility]ORATORYCLIA [id number] [address] NURSING PROGon 08-06-[address] [facility] OPERATIVE NOon 08-06-[address] [facility] Phosphate SerPl-mCncon 08-06 Phosphate [Mass/Vol] 4.2 mg/dL Normal 2.7-4.8 [facility] Comment on above: Order Comment: Speci men Type: BLOOD SPECIMENOrdering Facility: [facility] Address: [address] [place], [place] [id number] Performed By: #### 2 4321-2, 2777-1, 16247-0 ####[facility] LABORATORYCLIA [id number] [place] [address] [place] ALLIED HEALTHon 08-05-[address] [facility] ALLIED HEALTH [address] [facility] ANES PRE-OPon 08-05-2021 ANES PRE-OP Normal [facility] [facility] BRIEF OP NOTon 08-05-[address] [facility] Bacteria Spec Resp Culton Bacteria identified Respiratory culture Nom (Unsp spec) CULTURE, RESPIRATORY: Few Normal respiratory chris present ORGANISM ID: 1 Few Proteus species Insignificant colony count. No further workup. GRAM STAIN: No organisms seen Few Polymorphonuclear leukocytes Few Epithelial cells Abnormal [facility] Comment on above: Performed By: #### 3 2355-0 ####[facility]ORYCLIA [id number] [place] [address] [place] Bacteria Ur Culton Bacteria identified Cx Nom (U) CULTURE, URINE: No growth (<1,000 CFU/ml) Normal [facility] Comment on above: Performed By: #### 6 30-4 ####[facility]ORYCLIA [id number] [place] [address] [place] Basic metabolic 2000 panelon 08-05-2021 Anion gap [Moles/Vol] 7 mmol/L Low 9-18 [facility] Comment on above: Order Comment: Speci men Type: BLOOD SPECIMENOrdering Facility: [facility] Address: [address] [place] [address] Performed By: #### 2 4321-2 ####[facility]ORYCLIA [id number] [place] [address] [place] Calcium [Mass/Vol] 9.5 mg/dL Normal 8.5-10.2 [facility] Comment on above: Order Comment: Speci men Type: BLOOD SPECIMENOrdering Facility: [facility] Address: [address] [address] Performed By: #### 2 4321-2 ####[facility]ORYCLIA [id number] [address] [place] Chloride [Moles/Vol] 97 mmol/L Normal 97-105 [facility] Comment on above: Order Comment: Speci men Type: BLOOD SPECIMENOrdering Facility: [facility] Address: [address] [place] [address] Performed By: #### 2 4321-2 ####[facility]ORYCLIA [id number] [address] [place] CO2 [Moles/Vol] 30 mmol/L Normal 22-30 [facility] Comment on above: Order Comment: Speci men Type: BLOOD SPECIMENOrdering Facility: [facility] Address: [address] [place] [address] Performed By: #### 2 4321-2 ####[facility]ORYCLIA [id number] [address] [place] Creatinine [Mass/Vol] 0.61 mg/dL Low 0.73-1.22 [facility] Comment on above: Order Comment: Speci men Type: BLOOD SPECIMENOrdering Facility: [facility] Address: [address] [place] [address] Performed By: #### 2 4321-2 ####[facility]ORYCLIA [id number] [address] ESTIMATED GLOMERULAR FILTRATION RATE 104 mL/min/1.73m??? Normal >=60 [facility] Comment on above: Order Comment: Speci men Type: BLOOD SPECIMENOrdering Facility: [facility] Address: [address] [place] [address] Result Comment: Luzmaria mated Glomerular Filtration Rate [...] GFR. Performed By: #### 2 4321-2 ####[facility]ORYCLIA [id number] [place] [address] [place] Glucose [Mass/Vol] 124 mg/dL High 74-99 [facility] Comment on above: Order Comment: Shira feldman Type: BLOOD SPECIMENOrdering Facility: [facility] Address: [address] [place], [place] [address] Result Comment: The [place] [employer] (ADA) provides guidance for cutoff [...] Standards of Medical Care in Diabetes 2016, [place] [employer]. Diabetes Care. 2016.39(Suppl 1). Performed By: #### 2 4321-2 ####[facility]ORYCLIA [id number] [place] [address] [place] Potassium [Moles/Vol] 4.9 mmol/L Normal 3.7-5.1 [facility] Comment on above: Order Comment: Shira feldman Type: BLOOD SPECIMENOrdering Facility: [facility] Address: [address] [place] [address] Performed By: #### 2 4321-2 ####[facility]ORYCLIA [id number] [place] [address] [place] Sodium [Moles/Vol] 134 mmol/L Low 136-144 [facility] Comment on above: Order Comment: Shira feldman Type: BLOOD SPECIMENOrdering Facility: [facility] Address: [address] [place] [address] Performed By: #### 2 4321-2 ####[facility]ORYCLIA [id number] [address] STATES [facility] Urea nitrogen [Mass/Vol] 40 mg/dL High 9-24 [facility] Comment on above: Order Comment: Speci men Type: BLOOD SPECIMENOrdering Facility: [facility] Address: [address] [place] [address] Performed By: #### 2 4321-2 ####[facility]ORYCLIA [id number] [place] [address] [place] CBC W Auto Differential pane l (Bld)on 08-05-2021 Basophils (Bld) [#/Vol] 0.04 10*3/uL Normal <0.11 [facility] Comment on above: Order Comment: Speci men Type: BLOOD SPECIMENOrdering Facility: [facility] Address: [address] [place] [address] Performed By: #### 5 7021-8 ####[facility]ORYCLIA [id number] [address] [place] Basophils/100 WBC (Bld) 0.3 % Normal [facility] Comment on above: Order Comment: Speci men Type: BLOOD SPECIMENOrdering Facility: [facility] Address: [address] [place] [address] Performed By: #### 5 7021-8 ####[facility]ORYCLIA [id number] [address] STATES [facility] Differential cell count method Nom (Bld) Auto Normal [facility] Comment on above: Order Comment: Speci men Type: BLOOD SPECIMENOrdering Facility: [facility] Address: [address] [place] [address] Performed By: #### 5 7021-8 ####[facility]ORYCLIA [id number] [place] [address] [place] Eosinophils (Bld) [#/Vol] 0.42 10*3/uL Normal <0.46 [facility] Comment on above: Order Comment: Speci men Type: BLOOD SPECIMENOrdering Facility: [facility] Address: [address] [place] [address] Performed By: #### 5 7021-8 ####[facility]ORYCLIA [id number] [address] Eosinophils/100 WBC (Bld) 3.6 % Normal [facility] Comment on above: Order Comment: Speci men Type: BLOOD SPECIMENOrdering Facility: [facility] Address: [address] [place] [address] Performed By: #### 5 7021-8 ####[facility]ORYCLIA [id number] [address] [place] Erythrocyte distribution width (RBC) [Ratio] 17.9 % High 11.5-15.0 [facility] Comment on above: Order Comment: Speci men Type: BLOOD SPECIMENOrdering Facility: [facility] Address: [address] [place] [address] Performed By: #### 5 7021-8 ####[facility]ORYCLIA [id number] [address] [place] Hematocrit (Bld) [Volume fraction] 30.8 % Low 39.0-51.0 [facility] Comment on above: Order Comment: Speci men Type: BLOOD SPECIMENOrdering Facility: [facility] Address: [address] [place] [address] Performed By: #### 5 7021-8 ####[facility]ORYCLIA [id number] [address] [place] Hemoglobin (Bld) [Mass/Vol] 9.6 g/dL Low 13.0-17.0 [facility] Comment on above: Order Comment: Speci men Type: BLOOD SPECIMENOrdering Facility: [facility] Address: [address] [place] [address] Performed By: #### 5 7021-8 ####[facility]ORYCLIA [id number] [address] IMMATURE GRAN % 0.5 % Normal [facility] Comment on above: Order Comment: Speci men Type: BLOOD SPECIMENOrdering Facility: [facility] Address: [address] [place] [address] Performed By: #### 5 7021-8 ####[facility]ORYCLIA [id number] [address] IMMATURE GRAN ABS 0.06 k/uL Normal <0.10 [facility] Comment on above: Order Comment: Speci men Type: BLOOD SPECIMENOrdering Facility: [facility] Address: [address] [place] [address] Performed By: #### 5 7021-8 ####[facility]ORYCLIA [id number] [address] [place] Lymphocytes (Bld) [#/Vol] 2.17 10*3/uL Normal 1.00-4.00 [facility] Comment on above: Order Comment: Speci men Type: BLOOD SPECIMENOrdering Facility: [facility] Address: [address] [place] [address] Performed By: #### 5 7021-8 ####[facility]ORYCLIA [id number] [address] Lymphocytes/100 WBC (Bld) 18.7 % Normal [facility] Comment on above: Order Comment: Speci men Type: BLOOD SPECIMENOrdering Facility: [facility] Address: [address] [place] [address] Performed By: #### 5 7021-8 ####[facility]ORYCLIA [id number] [address] [place] MCH (RBC) [Entitic mass] 28.9 pg Normal 26.0-34.0 [facility] Comment on above: Order Comment: Speci men Type: BLOOD SPECIMENOrdering Facility: [facility] Address: [address] [place] [address] Performed By: #### 5 7021-8 ####[facility]ORYCLIA [id number] [address] STATES [facility] MCHC (RBC) [Mass/Vol] 31.2 g/dL Normal 30.5-36.0 [facility] Comment on above: Order Comment: Speci men Type: BLOOD SPECIMENOrdering Facility: [facility] Address: [address] [place] [address] Performed By: #### 5 7021-8 ####[facility]ORYCLIA [id number] [address] MCV (RBC) [Entitic vol] 92.8 fL Normal 80.0-100.0 [facility] Comment on above: Order Comment: Speci men Type: BLOOD SPECIMENOrdering Facility: [facility] Address: [address] [place] [address] Performed By: #### 5 7021-8 ####[facility]ORYCLIA [id number] [address] STATES OF [facility] Monocytes (Bld) [#/Vol] 0.71 10*3/uL Normal <0.87 [facility] Comment on above: Order Comment: Speci men Type: BLOOD SPECIMENOrdering Facility: [facility] Address: [address] [place] [address] Performed By: #### 5 7021-8 ####[facility]ORYCLIA [id number] [address] Monocytes/100 WBC (Bld) 6.1 % Normal [facility] Comment on above: Order Comment: Speci men Type: BLOOD SPECIMENOrdering Facility: [facility] Address: [address] [place] [address] Performed By: #### 5 7021-8 ####[facility]ORYCLIA [id number] [address] [place] Neutrophils (Bld) [#/Vol] 8.19 10*3/uL High 1.45-7.50 [facility] Comment on above: Order Comment: Speci men Type: BLOOD SPECIMENOrdering Facility: [facility] Address: [address] [address] Performed By: #### 5 7021-8 ####[facility]ORYCLIA [id number] [address] Neutrophils/100 WBC (Bld) 70.8 % Normal [facility] Comment on above: Order Comment: Speci men Type: BLOOD SPECIMENOrdering Facility: [facility] Address: [address] [place] [address] Performed By: #### 5 7021-8 ####[facility]ORYCLIA [id number] [address] Nucleated RBC (Bld) [#/Vol] 10*3/uL Normal <0.01 [facility] Comment on above: Order Comment: Speci men Type: BLOOD SPECIMENOrdering Facility: [facility] Address: [address] [place] [address] Performed By: #### 5 7021-8 ####[facility]ORYCLIA [id number] [address] Nucleated RBC/100 WBC (Bld) [Ratio] 0.0 /[address] [facility] Comment on above: Order Comment: Speci men Type: BLOOD SPECIMENOrdering Facility: [facility] Address: [address] [place] [address] Performed By: #### 5 7021-8 ####[facility]ORYCLIA [id number] [address] Platelet mean volume (Bld) [Entitic vol] 9.6 fL Normal 9.0-12.7 [facility] Comment on above: Order Comment: Speci men Type: BLOOD SPECIMENOrdering Facility: [facility] Address: [address] [place] [address] Performed By: #### 5 7021-8 ####[facility]ORYCLIA [id number] [address] Platelets (Bld) [#/Vol] 339 10*3/uL Normal 150-400 [facility] Comment on above: Order Comment: Speci men Type: BLOOD SPECIMENOrdering Facility: [facility] Address: [address] [place] [address] Performed By: #### 5 7021-8 ####[facility]ORYCLIA [id number] [place] [address] [place] RBC (Bld) [#/Vol] 3.32 10*6/uL Low 4.20-6.00 [facility] Comment on above: Order Comment: Speci men Type: BLOOD SPECIMENOrdering Facility: [facility] Address: [address] [place] [address] Performed By: #### 5 7021-8 ####[facility]ORYCLIA [id number] [address] WBC (Bld) [#/Vol] 11.59 10*3/uL High 3.70-11.00 [facility] Comment on above: Order Comment: Speci men Type: BLOOD SPECIMENOrdering Facility: [facility] Address: [address] [place] [address] Performed By: #### 5 7021-8 ####[facility]ORYCLIA [id number] [address] [place] CT BRAIN WO IVCONon 08-06-[address] BRAIN WO IVCON Normal [facility] Magnesium SerPl-mCncon 08-05 Magnesium [Mass/Vol] 2.2 mg/dL Normal 1.7-2.3 [facility] Comment on above: Order Comment: Speci men Type: BLOOD SPECIMENOrdering Facility: [facility] Address: [address] [place] [address] Performed By: #### 1 9123-9, 2777-1 ####[facility]ORYCLIA [id number] [address] [place] NURSING PROGon 08-05-[address] [facility] NURSING PROG Normal [facility] NUTRITIONon 08-05-[address] [facility] OPERATIVE NOon 08-05-[address] [facility] Phosphate SerPl-mCncon 08-05 Phosphate [Mass/Vol] 4.6 mg/dL Normal 2.7-4.8 [facility] Comment on above: Order Comment: Speci men Type: BLOOD SPECIMENOrdering Facility: [facility] Address: [address] [place] [address] Performed By: #### 1 9123-9, 2777-1 ####[facility]ORYCLIA [id number] [address] THERAPY NTon 08-05-[address] [facility] THERAPY NT Normal [facility] Urinalysis complete panel (U )on 08-05-2021 Bilirubin Ql (U) Negative Normal Negative [facility] Comment on above: Order Comment: Speci men Type: URINE SPECIMENOrdering Facility: [facility] Address: [address] [place] [address] Performed By: #### 2 4356-8 ####[facility]ORYCLIA [id number] [address] [place] Clarity (Unsp spec) Clear Normal Clear [facility] Comment on above: Order Comment: Speci men Type: URINE SPECIMENOrdering Facility: [facility] Address: [address] [place] [address] Performed By: #### 2 4356-8 ####[facility]ORYCLIA [id number] [address] [place] Color (U) Light Yellow Normal yellow [facility] Comment on above: Order Comment: Speci men Type: URINE SPECIMENOrdering Facility: [facility] Address: [address] [place] [address] Performed By: #### 2 4356-8 ####[facility]ORYCLIA [id number] [address] [place] Epithelial cells LM.HPF (Urine sed) [#/Area] Few Abnormal None Seen [facility] Comment on above: Order Comment: Speci men Type: URINE SPECIMENOrdering Facility: [facility] Address: [address] [place] [address] Performed By: #### 2 4356-8 ####[facility]ORATORYCLIA [id number] [address] Glucose Test strip (U) [Mass/Vol] Negative Normal Negative [facility] Comment on above: Order Comment: Speci men Type: URINE SPECIMENOrdering Facility: [facility] Address: [address] [place] [address] Performed By: #### 2 4356-8 ####[facility]ORYCLIA [id number] [address] Hemoglobin Ql (U) Negative Normal Negative [facility] Comment on above: Order Comment: Speci men Type: URINE SPECIMENOrdering Facility: [facility] Address: [address] [place] [address] Performed By: #### 2 4356-8 ####[facility]ORYCLIA [id number] [address] Hyaline casts (Urine sed) [#/Area] 1-3 /LPF Abnormal 0 /LPF [facility] Comment on above: Order Comment: Speci men Type: URINE SPECIMENOrdering Facility: [facility] Address: [address] [place] [address] Performed By: #### 2 4356-8 ####[facility]ORATORYCLIA [id number] [address] Ketones Ql (U) Negative Normal Negative [facility] Comment on above: Order Comment: Speci men Type: URINE SPECIMENOrdering Facility: [facility] Address: [address] [place] [address] Performed By: #### 2 4356-8 ####[facility] LABORATORYCLIA [id number] [place] [address] Leukocyte esterase Test strip Ql (U) Negative Normal Negative [facility] Comment on above: Order Comment: Speci men Type: URINE SPECIMENOrdering Facility: [facility] Address: [address] [place] [address] Performed By: #### 2 4356-8 ####[facility]ORYCLIA [id number] [address] STATES [facility] Nitrite Ql (U) Negative Normal Negative [facility] Comment on above: Order Comment: Speci men Type: URINE SPECIMENOrdering Facility: [facility] Address: [address] [place] [address] Performed By: #### 2 4356-8 ####[facility]ORYCLIA [id number] [address] STATES [facility] pH (U) 6.0 [pH] Normal 5.0-8.0 [facility] Comment on above: Order Comment: Speci men Type: URINE SPECIMENOrdering Facility: [facility] Address: [address] [place] [address] Performed By: #### 2 4356-8 ####[facility]ATORYCLIA [id number] [address] Protein (U) [Mass/Vol] Negative Normal Negative [facility] Comment on above: Order Comment: Speci men Type: URINE SPECIMENOrdering Facility: [facility] Address: [address] [place] [address] Performed By: #### 2 4356-8 ####[facility]ORYCLIA [id number] [address] RBC LM.HPF (Urine sed) [#/Area] 0-3 /HPF Normal 0-3 /HPF [facility] Comment on above: Order Comment: Speci men Type: URINE SPECIMENOrdering Facility: [facility] Address: [address] [place] [address] Performed By: #### 2 4356-8 ####[facility]ATORYCLIA [id number] [address] [place] Specific gravity (U) [Rel density] 1.015 Normal 1.005-1.030 [facility] Comment on above: Order Comment: Speci men Type: URINE SPECIMENOrdering Facility: [facility] Address: [address] [place] [address] Performed By: #### 2 4356-8 ####[facility]ATORYCLIA [id number] [address] [place] Urobilinogen Ql (U) Normal Normal Negative [facility] Comment on above: Order Comment: Speci men Type: URINE SPECIMENOrdering Facility: [facility] Address: [address] [place] [address] Performed By: #### 2 4356-8 ####[facility]ATORYCLIA [id number] [address] [place] WBC LM.HPF (Urine sed) [#/Area] 0-5 /HPF Normal 0-5 /HPF [facility] Comment on above: Order Comment: Speci men Type: URINE SPECIMENOrdering Facility: [facility] Address: [address] [place] [address] Performed By: #### 2 4356-8 ####[facility]ATORYCLIA [id number] [address] [place] XR ABDOMEN 1V SUPINEon 08-05 XR ABDOMEN 1V SUPINE Normal [facility] XR CHEST 1V FRONTALon 2021 XR CHEST 1V FRONTAL Normal [facility] XR CHEST 1V FRONTAL Normal [facility] XR NECK SOFT TISSUE 2V AP/LA Ton 08-05-2021 XR NECK SOFT TISSUE 2V AP/LAT Normal [facility] XR SKULL 2V AP/LATon 022 XR SKULL 2V AP/LAT Normal [facility] ALLIED HEALTHon 08-04-[address] [facility] Bacteria Bld Culton 08-05-19 22 Bacteria identified Cx Nom (Bld) CULTURE, BLOOD: No growth [address] [facility] Comment on above: Performed By: #### 6 00-7 ####[facility]ORATORYCLIA [id number] [address] Bacteria identified Cx Nom (Bld) CULTURE, BLOOD: No growth [address] [facility] Comment on above: Performed By: #### 6 00-7 ####[facility]ORYCLIA [id number] [address] OF [facility] CBC W Auto Differential pane l (Bld)on 08-04-2021 Basophils (Bld) [#/Vol] 0.05 10*3/uL Normal <0.11 [facility] Comment on above: Order Comment: Speci men Type: BLOOD SPECIMENOrdering Facility: [facility] Address: [address] [place] [address] Performed By: #### 5 7021-8 ####[facility]ORYCLIA [id number] [address] Basophils/100 WBC (Bld) 0.4 % Normal [facility] Comment on above: Order Comment: Speci men Type: BLOOD SPECIMENOrdering Facility: [facility] Address: [address] [place] [address] Performed By: #### 5 7021-8 ####[facility]ORYCLIA [id number] [address] Differential cell count method Nom (Bld) Auto Normal [facility] Comment on above: Order Comment: Speci men Type: BLOOD SPECIMENOrdering Facility: [facility] Address: [address] [place] [address] Performed By: #### 5 7021-8 ####[facility]ORYCLIA [id number] [address] OF [facility] Eosinophils (Bld) [#/Vol] 0.21 10*3/uL Normal <0.46 [facility] Comment on above: Order Comment: Speci men Type: BLOOD SPECIMENOrdering Facility: [facility] Address: [address] [place] [address] Performed By: #### 5 7021-8 ####[facility]ORYCLIA [id number] [address] [place] [facility] Eosinophils/100 WBC (Bld) 1.7 % Normal [facility] Comment on above: Order Comment: Speci men Type: BLOOD SPECIMENOrdering Facility: [facility] Address: [address] [place] [address] Performed By: #### 5 7021-8 ####[facility]ORYCLIA [id number] [address] [place] Erythrocyte distribution width (RBC) [Ratio] 18.1 % High 11.5-15.0 [facility] Comment on above: Order Comment: Speci men Type: BLOOD SPECIMENOrdering Facility: [facility] Address: [address] [place] [address] Performed By: #### 5 7021-8 ####[facility]ATORYCLIA [id number] [address] Hematocrit (Bld) [Volume fraction] 32.0 % Low 39.0-51.0 [facility] Comment on above: Order Comment: Speci men Type: BLOOD SPECIMENOrdering Facility: [facility] Address: [address] [place] [address] Performed By: #### 5 7021-8 ####[facility]ATORYCLIA [id number] [address] [place] Hemoglobin (Bld) [Mass/Vol] 10.0 g/dL Low 13.0-17.0 [facility] Comment on above: Order Comment: Speci men Type: BLOOD SPECIMENOrdering Facility: [facility] Address: [address] [place] [address] Performed By: #### 5 7021-8 ####[facility] LABORATORYCLIA [id number] [address] [place] IMMATURE GRAN % 0.6 % Normal [facility] Comment on above: Order Comment: Speci men Type: BLOOD SPECIMENOrdering Facility: [facility] Address: [address] [place] [address] Performed By: #### 5 7021-8 ####[facility] LABORATORYCLIA [id number] [address] IMMATURE GRAN ABS 0.08 k/uL Normal <0.10 [facility] Comment on above: Order Comment: Speci men Type: BLOOD SPECIMENOrdering Facility: [facility] Address: [address] [place] [address] Performed By: #### 5 7021-8 ####[facility] LABORATORYCLIA [id number] [address] Lymphocytes (Bld) [#/Vol] 2.55 10*3/uL Normal 1.00-4.00 [facility] Comment on above: Order Comment: Speci men Type: BLOOD SPECIMENOrdering Facility: [facility] Address: [address] [place] [address] Performed By: #### 5 7021-8 ####[facility]ORATORYCLIA [id number] [address] Lymphocytes/100 WBC (Bld) 20.5 % Normal [facility] Comment on above: Order Comment: Speci men Type: BLOOD SPECIMENOrdering Facility: [facility] Address: [address] [place] [address] Performed By: #### 5 7021-8 ####[facility]ORATORYCLIA [id number] [address] MCH (RBC) [Entitic mass] 28.9 pg Normal 26.0-34.0 [facility] Comment on above: Order Comment: Speci men Type: BLOOD SPECIMENOrdering Facility: [facility] Address: [address] [place] [address] Performed By: #### 5 7021-8 ####[facility]ORATORYCLIA [id number] [address] MCHC (RBC) [Mass/Vol] 31.3 g/dL Normal 30.5-36.0 [facility] Comment on above: Order Comment: Speci men Type: BLOOD SPECIMENOrdering Facility: [facility] Address: [address] [place] [address] Performed By: #### 5 7021-8 ####[facility]ORATORYCLIA [id number] [address] [place] MCV (RBC) [Entitic vol] 92.5 fL Normal 80.0-100.0 [facility] Comment on above: Order Comment: Speci men Type: BLOOD SPECIMENOrdering Facility: [facility] Address: [address] [place] [address] Performed By: #### 5 7021-8 ####[facility]ORATORYCLIA [id number] [address] [place] Monocytes (Bld) [#/Vol] 0.85 10*3/uL Normal <0.87 [facility] Comment on above: Order Comment: Speci men Type: BLOOD SPECIMENOrdering Facility: [facility] Address: [address] [place] [address] Performed By: #### 5 7021-8 ####[facility] LABORATORYCLIA [id number] [address] OF [facility] Monocytes/100 WBC (Bld) 6.8 % Normal [facility] Comment on above: Order Comment: Speci men Type: BLOOD SPECIMENOrdering Facility: [facility] Address: [address] [place] [address] Performed By: #### 5 7021-8 ####[facility]ORATORYCLIA [id number] [address] [place] Neutrophils (Bld) [#/Vol] 8.68 10*3/uL High 1.45-7.50 [facility] Comment on above: Order Comment: Speci men Type: BLOOD SPECIMENOrdering Facility: [facility] Address: [address] [place] [address] Performed By: #### 5 7021-8 ####[facility]ORATORYCLIA [id number] [address] Neutrophils/100 WBC (Bld) 70.0 % Normal [facility] Comment on above: Order Comment: Speci men Type: BLOOD SPECIMENOrdering Facility: [facility] Address: [address] [place] [address] Performed By: #### 5 7021-8 ####[facility]ORATORYCLIA [id number] [address] Nucleated RBC (Bld) [#/Vol] 10*3/uL Normal <0.01 [facility] Comment on above: Order Comment: Speci men Type: BLOOD SPECIMENOrdering Facility: [facility] Address: [address] [place] [address] Performed By: #### 5 7021-8 ####[facility]ORATORYCLIA [id number] [address] STATES [facility] Nucleated RBC/100 WBC (Bld) [Ratio] 0.0 /[address] [facility] Comment on above: Order Comment: Speci men Type: BLOOD SPECIMENOrdering Facility: [facility] Address: [address] [place] [address] Performed By: #### 5 7021-8 ####[facility]ORATORYCLIA [id number] [address] [place] Platelet mean volume (Bld) [Entitic vol] 10.0 fL Normal 9.0-12.7 [facility] Comment on above: Order Comment: Speci men Type: BLOOD SPECIMENOrdering Facility: [facility] Address: [address] [place] [address] Performed By: #### 5 7021-8 ####[facility]ORATORYCLIA [id number] [address] [place] Platelets (Bld) [#/Vol] 393 10*3/uL Normal 150-400 [facility] Comment on above: Order Comment: Speci men Type: BLOOD SPECIMENOrdering Facility: [facility] Address: [address] [place] [address] Performed By: #### 5 7021-8 ####[facility]ORATORYCLIA [id number] [address] RBC (Bld) [#/Vol] 3.46 10*6/uL Low 4.20-6.00 [facility] Comment on above: Order Comment: Speci men Type: BLOOD SPECIMENOrdering Facility: [facility] Address: [address] [place] [address] Performed By: #### 5 7021-8 ####[facility]ORATORYCLIA [id number] [address] WBC (Bld) [#/Vol] 12.42 10*3/uL High 3.70-11.00 [facility] Comment on above: Order Comment: Speci men Type: BLOOD SPECIMENOrdering Facility: [facility] Address: [address] [place] [address] Performed By: #### 5 7021-8 ####[facility]ORATORYCLIA [id number] [address] BRAIN WO IVCONon 08-05-[address] BRAIN WO IVCON Normal [facility] Lactate (Bld) [Moles/Vol]on 08-04-2021 Lactate [Moles/Vol] 1.4 mmol/L Normal 0.5-2.2 [facility] Comment on above: Order Comment: Speci men Type: BLOOD SPECIMENOrdering Facility: [facility] Address: [address] [place] [address] Performed By: #### 3 2693-4 ####[facility]ORATORYCLIA [id number] [address] PROCALCITONIN (LAB)on 2021 Procalcitonin [Mass/Vol] 0.08 ng/mL Normal <0.09 [facility] Comment on above: Order Comment: Speci men Type: BLOOD SPECIMENOrdering Facility: [facility] Address: [facility] [place] [address] Result Comment: For a guided interpretation of test results, please visit the Change in Procalcitonin Calculator, [email or web address]. Performed By: #### P ROCAL ####[facility]ORATORYCLIA [id number] [address] Prealbumin [Mass/Vol]on 07-07 Prealbumin Nephelometry [Mass/Vol] 35 mg/dL Normal [facility] Comment on above: Order Comment: Speci men Type: BLOOD SPECIMENOrdering Facility: [facility] Address: [address] [place] [address] Performed By: #### 1 4338-8 ####[facility]ORATORYCLIA [id number] [address] SARS-CoV-2 RNA Resp Ql MEGAN+p robeon 08-04-2021 SARS-CoV-2 (COVID-19) RNA MEGAN+probe Ql (Resp) COVID 19 RESULT: SARS-CoV-2 (Agent of COVID-19) Not Detected by RT-PCR or equivalent method. This test has been authorized by FDA under an Emergency Use Authorization (EUA). Normal [facility] Comment on above: Performed By: #### 9 4500-6 ####[facility]ORATORYCLIA [id number] [address] STATES OF [facility] TYPE AND SCREENon 08-04-[address] [facility] Comment on above: Order Comment: Speci men Type: BLOOD SPECIMENOrdering Facility: [facility] Address: [address] [place] [address] Performed By: #### T SCR ####[facility]LO[facility] BANKCLIA [id number] [address] HISTORICAL AB SCR STATUS Negative Normal [facility] Comment on above: Order Comment: Speci men Type: BLOOD SPECIMENOrdering Facility: [facility] Address: [address] [place] [address] Performed By: #### T SCR ####[facility]LO[facility] BANKCLIA [id number] [address] Rh Nom (Bld) Positive Normal [facility] Comment on above: Order Comment: Speci men Type: BLOOD SPECIMENOrdering Facility: [facility] Address: [address] [place] [address] Performed By: #### T SCR ####[facility]LO[facility] BANKCLIA [id number] [address] TYPE AND SCREEN EXPIRATION 08/07/2021 23:[address] [facility] Comment on above: Order Comment: Speci men Type: BLOOD SPECIMENOrdering Facility: [facility] Address: [address] [place] [address] Performed By: #### T SCR ####[facility] BLOOD BANKCLIA [id number] [address] aPTT PPPon 08-04-2021 aPTT Coag (PPP) [Time] 51.8 s High 23.0-32.4 [facility] Comment on above: Order Comment: Speci men Type: BLOOD SPECIMENOrdering Facility: [facility] Address: [address] [place] [address] Performed By: #### 1 4979-9 ####[facility]ORATORYCLIA [id number] [address] Basic metabolic 2000 panelon 08-03-2021 Anion gap [Moles/Vol] 9 mmol/L Normal 9-18 [facility] Comment on above: Order Comment: Speci men Type: BLOOD SPECIMENOrdering Facility: [facility] Address: [address] [place] [address] Performed By: #### 2 4321-2, 66160-4, 2777-1 ####[facility]ATORYCLIA [id number] [address] Calcium [Mass/Vol] 9.3 mg/dL Normal 8.5-10.2 [facility] Comment on above: Order Comment: Speci men Type: BLOOD SPECIMENOrdering Facility: [facility] Address: [address] [place] [address] Performed By: #### 2 4321-2, , 2776-05 ####[facility] LABORATORYCLIA [id number] [place] [address] [place] Chloride [Moles/Vol] 97 mmol/L Normal 97-105 [facility] Comment on above: Order Comment: Speci men Type: BLOOD SPECIMENOrdering Facility: [facility] Address: [address] [place] [address] Performed By: #### 2 4321-2, , 2776-05 ####[facility]ORATORYCLIA [id number] [place] [address] [place] CO2 [Moles/Vol] 27 mmol/L Normal 22-30 [facility] Comment on above: Order Comment: Speci men Type: BLOOD SPECIMENOrdering Facility: [facility] Address: [address] [place] [address] Performed By: #### 2 4321-2, , 2776-05 ####[facility]ORATORYCLIA [id number] [address] [place] Creatinine [Mass/Vol] 0.63 mg/dL Low 0.73-1.22 [facility] Comment on above: Order Comment: Speci men Type: BLOOD SPECIMENOrdering Facility: [facility] Address: [address] [place] [address] Performed By: #### 2 4321-2, , 2776-05 ####[facility]ORATORYCLIA [id number] [address] ESTIMATED GLOMERULAR FILTRATION RATE 103 mL/min/1.73m??? Normal >=60 [facility] Comment on above: Order Comment: Speci men Type: BLOOD SPECIMENOrdering Facility: [facility] Address: [address] [place] [address] Result Comment: Luzmaria mated Glomerular Filtration Rate [...] 2 4321-2, , 2776-05 ####[facility] HOSPITALIA [id number] [place] [address] [place] Glucose [Mass/Vol] 136 mg/dL High 74-99 [facility] Comment on above: Order Comment: Shira feldman Type: BLOOD SPECIMENOrdering Facility: [facility] Address: [address] [place] [address] Result Comment: The [place] [employer] (ADA) provides guidance for cutoff [...] Standards of Medical Care in Diabetes 2016, [place] [employer]. Diabetes Care. 2016.39(Suppl 1). Performed By: #### 2 4321-2, , 2776-05 ####[facility] LABORATORYCLIA [id number] [place] [id number] [place] Potassium [Moles/Vol] 4.1 mmol/L Normal 3.7-5.1 [facility] Comment on above: Order Comment: Shira feldman Type: BLOOD SPECIMENOrdering Facility: [facility] Address: [address] [place] [phone] Performed By: #### 2 4321-2, , 2776-05 ####[facility]ORATORYCLIA [id number] [place] [address] [place] Sodium [Moles/Vol] 133 mmol/L Low 136-144 [facility] Comment on above: Order Comment: Speci men Type: BLOOD SPECIMENOrdering Facility: [facility] Address: [address] [place] [address] Performed By: #### 2 4321-2, 90256-3, 2777-1 ####[facility]ORATORYCLIA [id number] [address] [place] Urea nitrogen [Mass/Vol] 40 mg/dL High 9-24 [facility] Comment on above: Order Comment: Speci men Type: BLOOD SPECIMENOrdering Facility: [facility] Address: [address] [place] [address] Performed By: #### 2 4321-2, , 2777 ####[facility] LABORATORYCLIA [id number] [address] OF [facility] CASE MANAGEMon 08-03-[address] [facility] CBC W Auto Differential pane l (Bld)on 08-03-2021 Basophils (Bld) [#/Vol] 0.06 10*3/uL Normal <0.11 [facility] Comment on above: Order Comment: Speci men Type: BLOOD SPECIMENOrdering Facility: [facility] Address: [address] [place] [address] Performed By: #### 5 7021-8 ####[facility] LABORATORYCLIA [id number] [address] [place] Basophils/100 WBC (Bld) 0.5 % Normal [facility] Comment on above: Order Comment: Speci men Type: BLOOD SPECIMENOrdering Facility: [facility] Address: [address] [place] [address] Performed By: #### 5 7021-8 ####[facility] LABORATORYCLIA [id number] [place] [address] [place] Differential cell count method Nom (Bld) Auto Normal [facility] Comment on above: Order Comment: Speci men Type: BLOOD SPECIMENOrdering Facility: [facility] Address: [address] [place] [address] Performed By: #### 5 7021-8 ####[facility] LABORATORYCLIA [id number] [address] [place] Eosinophils (Bld) [#/Vol] 0.23 10*3/uL Normal <0.46 [facility] Comment on above: Order Comment: Speci men Type: BLOOD SPECIMENOrdering Facility: [facility] Address: [address] [place] [address] Performed By: #### 5 7021-8 ####[facility]ORATORYCLIA [id number] [address] Eosinophils/100 WBC (Bld) 1.8 % Normal [facility] Comment on above: Order Comment: Speci men Type: BLOOD SPECIMENOrdering Facility: [facility] Address: [address] [place] [address] Performed By: #### 5 7021-8 ####[facility]ORATORYCLIA [id number] [address] Erythrocyte distribution width (RBC) [Ratio] 17.6 % High 11.5-15.0 [facility] Comment on above: Order Comment: Speci men Type: BLOOD SPECIMENOrdering Facility: [facility] Address: [address] [place] [address] Performed By: #### 5 7021-8 ####[facility]ORATORYCLIA [id number] [address] Hematocrit (Bld) [Volume fraction] 30.7 % Low 39.0-51.0 [facility] Comment on above: Order Comment: Speci men Type: BLOOD SPECIMENOrdering Facility: [facility] Address: [address] [place] [address] Performed By: #### 5 7021-8 ####[facility]ORATORYCLIA [id number] [address] OF [facility] Hemoglobin (Bld) [Mass/Vol] 9.3 g/dL Low 13.0-17.0 [facility] Comment on above: Order Comment: Speci men Type: BLOOD SPECIMENOrdering Facility: [facility] Address: [address] [place] [address] Performed By: #### 5 7021-8 ####[facility] LABORATORYCLIA [id number] [address] IMMATURE GRAN % 0.6 % Normal [facility] Comment on above: Order Comment: Speci men Type: BLOOD SPECIMENOrdering Facility: [facility] Address: [address] [place] [address] Performed By: #### 5 7021-8 ####[facility] LABORATORYCLIA [id number] [address] IMMATURE GRAN ABS 0.08 k/uL Normal <0.10 [facility] Comment on above: Order Comment: Speci men Type: BLOOD SPECIMENOrdering Facility: [facility] Address: [address] [place] [address] Performed By: #### 5 7021-8 ####[facility] LABORATORYCLIA [id number] [address] Lymphocytes (Bld) [#/Vol] 2.45 10*3/uL Normal 1.00-4.00 [facility] Comment on above: Order Comment: Speci men Type: BLOOD SPECIMENOrdering Facility: [facility] Address: [address] [place] [address] Performed By: #### 5 7021-8 ####[facility]ORATORYCLIA [id number] [address] Lymphocytes/100 WBC (Bld) 19.7 % Normal [facility] Comment on above: Order Comment: Speci men Type: BLOOD SPECIMENOrdering Facility: [facility] Address: [address] [place] [address] Performed By: #### 5 7021-8 ####[facility]ORATORYCLIA [id number] [address] MCH (RBC) [Entitic mass] 28.2 pg Normal 26.0-34.0 [facility] Comment on above: Order Comment: Speci men Type: BLOOD SPECIMENOrdering Facility: [facility] Address: [address] [place] [address] Performed By: #### 5 7021-8 ####[facility]ORATORYCLIA [id number] [address] MCHC (RBC) [Mass/Vol] 30.3 g/dL Low 30.5-36.0 [facility] Comment on above: Order Comment: Speci men Type: BLOOD SPECIMENOrdering Facility: [facility] Address: [address] [place] [address] Performed By: #### 5 7021-8 ####[facility]ORATORYCLIA [id number] [address] MCV (RBC) [Entitic vol] 93.0 fL Normal 80.0-100.0 [facility] Comment on above: Order Comment: Speci men Type: BLOOD SPECIMENOrdering Facility: [facility] Address: [address] [place] [address] Performed By: #### 5 7021-8 ####[facility] LABORATORYCLIA [id number] [address] Monocytes (Bld) [#/Vol] 0.72 10*3/uL Normal <0.87 [facility] Comment on above: Order Comment: Speci men Type: BLOOD SPECIMENOrdering Facility: [facility] Address: [address] [place] [address] Performed By: #### 5 7021-8 ####[facility]ORATORYCLIA [id number] [address] Monocytes/100 WBC (Bld) 5.8 % Normal [facility] Comment on above: Order Comment: Speci men Type: BLOOD SPECIMENOrdering Facility: [facility] Address: [address] [place] [address] Performed By: #### 5 7021-8 ####[facility] LABORATORYCLIA [id number] [address] [place] Neutrophils (Bld) [#/Vol] 8.92 10*3/uL High 1.45-7.50 [facility] Comment on above: Order Comment: Speci men Type: BLOOD SPECIMENOrdering Facility: [facility] Address: [address] [place] [address] Performed By: #### 5 7021-8 ####[facility] LABORATORYCLIA [id number] [address] [place] Neutrophils/100 WBC (Bld) 71.6 % Normal [facility] Comment on above: Order Comment: Speci men Type: BLOOD SPECIMENOrdering Facility: [facility] Address: [address] [place] [address] Performed By: #### 5 7021-8 ####[facility] LABORATORYCLIA [id number] [address] [place] Nucleated RBC (Bld) [#/Vol] 10*3/uL Normal <0.01 [facility] Comment on above: Order Comment: Speci men Type: BLOOD SPECIMENOrdering Facility: [facility] Address: [address] [place] [address] Performed By: #### 5 7021-8 ####[facility] LABORATORYCLIA [id number] [address] [place] Nucleated RBC/100 WBC (Bld) [Ratio] 0.0 /[address] [facility] Comment on above: Order Comment: Speci men Type: BLOOD SPECIMENOrdering Facility: [facility] Address: [address] [place] [address] Performed By: #### 5 7021-8 ####[facility]ORATORYCLIA [id number] [place] [address] Platelet mean volume (Bld) [Entitic vol] 10.2 fL Normal 9.0-12.7 [facility] Comment on above: Order Comment: Speci men Type: BLOOD SPECIMENOrdering Facility: [facility] Address: [address] [place] [address] Performed By: #### 5 7021-8 ####[facility] LABORATORYCLIA [id number] [address] [place] Platelets (Bld) [#/Vol] 352 10*3/uL Normal 150-400 [facility] Comment on above: Order Comment: Speci men Type: BLOOD SPECIMENOrdering Facility: [facility] Address: [address] [place] [address] Performed By: #### 5 7021-8 ####[facility] LABORATORYCLIA [id number] [address] STATES OF [facility] RBC (Bld) [#/Vol] 3.30 10*6/uL Low 4.20-6.00 [facility] Comment on above: Order Comment: Speci men Type: BLOOD SPECIMENOrdering Facility: [facility] Address: [address] [place] [address] Performed By: #### 5 7021-8 ####[facility] LABORATORYCLIA [id number] [address] [place] WBC (Bld) [#/Vol] 12.46 10*3/uL High 3.70-11.00 [facility] Comment on above: Order Comment: Speci men Type: BLOOD SPECIMENOrdering Facility: [facility] Address: [address] [place] [address] Performed By: #### 5 7021-8 ####[facility]ORATORYCLIA [id number] [address] OF [facility] CONSULT PROGon 08-03-[address] [facility] Magnesium SerPl-mCncon 08-03 Magnesium [Mass/Vol] 2.2 mg/dL Normal 1.7-2.3 [facility] Comment on above: Order Comment: Speci men Type: BLOOD SPECIMENOrdering Facility: [facility] Address: [address] [place] [address] Performed By: #### 2 4321-2, 35431-3, 2776- ####[facility]ORATORYCLIA [id number] [address] STATES OF [facility] NURSING PROGon 08-03-[address] [facility] Phosphate SerPl-mCncon 08-03 Phosphate [Mass/Vol] 4.2 mg/dL Normal 2.7-4.8 [facility] Comment on above: Order Comment: Speci men Type: BLOOD SPECIMENOrdering Facility: [facility] Address: [address] [place] [address] Performed By: #### 2 4321-2, , 2776-05 ####[facility] LABORATORYCLIA [id number] [address] aPTT PPPon 08-03-2021 aPTT Coag (PPP) [Time] 50.0 s High 23.0-32.4 [facility] Comment on above: Order Comment: Speci men Type: BLOOD SPECIMENOrdering Facility: [facility] Address: [address] [place] [address] Performed By: #### 1 4979-9 ####[facility] LABORATORYCLIA [id number] [address] STATES OF [facility] CBC W Auto Differential pane l (Bld)on 08-02-2021 Basophils (Bld) [#/Vol] 10*3/uL Normal <0.11 [facility] Comment on above: Order Comment: Speci men Type: BLOOD SPECIMENOrdering Facility: [facility] Address: [address] [place] [address] Performed By: #### 5 7021-8 ####[facility] LABORATORYCLIA [id number] [address] Basophils/100 WBC (Bld) 0.2 % Normal [facility] Comment on above: Order Comment: Speci men Type: BLOOD SPECIMENOrdering Facility: [facility] Address: [address] [place] [address] Performed By: #### 5 7021-8 ####[facility]ORATORYCLIA [id number] [place] [address] [place] Differential cell count method Nom (Bld) Auto Normal [facility] Comment on above: Order Comment: Speci men Type: BLOOD SPECIMENOrdering Facility: [facility] Address: [address] [place] [address] Performed By: #### 5 7021-8 ####[facility]ATORYCLIA [id number] [place] [address] [place] Eosinophils (Bld) [#/Vol] 10*3/uL Normal <0.46 [facility] Comment on above: Order Comment: Speci men Type: BLOOD SPECIMENOrdering Facility: [facility] Address: [address] [place] [address] Performed By: #### 5 7021-8 ####[facility]ATORYCLIA [id number] [address] STATES OF [facility] Eosinophils/100 WBC (Bld) 0.0 % Normal [facility] Comment on above: Order Comment: Speci men Type: BLOOD SPECIMENOrdering Facility: [facility] Address: [address] [place] [address] Performed By: #### 5 7021-8 ####[facility]ATORYCLIA [id number] [place] [address] [place] Erythrocyte distribution width (RBC) [Ratio] 17.3 % High 11.5-15.0 [facility] Comment on above: Order Comment: Speci men Type: BLOOD SPECIMENOrdering Facility: [facility] Address: [address] [place] [address] Performed By: #### 5 7021-8 ####[facility]ATORYCLIA [id number] [address] Hematocrit (Bld) [Volume fraction] 30.8 % Low 39.0-51.0 [facility] Comment on above: Order Comment: Speci men Type: BLOOD SPECIMENOrdering Facility: [facility] Address: [address] [place] [address] Performed By: #### 5 7021-8 ####[facility]ATORYCLIA [id number] [address] [place] Hemoglobin (Bld) [Mass/Vol] 9.7 g/dL Low 13.0-17.0 [facility] Comment on above: Order Comment: Speci men Type: BLOOD SPECIMENOrdering Facility: [facility] Address: [address] [place] [address] Performed By: #### 5 7021-8 ####[facility]ATORYCLIA [id number] [address] IMMATURE GRAN % 0.5 % Normal [facility] Comment on above: Order Comment: Speci men Type: BLOOD SPECIMENOrdering Facility: [facility] Address: [address] [place] [address] Performed By: #### 5 7021-8 ####[facility]ATORYCLIA [id number] [address] IMMATURE GRAN ABS 0.07 k/uL Normal <0.10 [facility] Comment on above: Order Comment: Speci men Type: BLOOD SPECIMENOrdering Facility: [facility] Address: [address] [place] [address] Performed By: #### 5 7021-8 ####[facility]ATORYCLIA [id number] [address] [place] Lymphocytes (Bld) [#/Vol] 1.60 10*3/uL Normal 1.00-4.00 [facility] Comment on above: Order Comment: Speci men Type: BLOOD SPECIMENOrdering Facility: [facility] Address: [address] [place] [address] Performed By: #### 5 7021-8 ####[facility]ATORYCLIA [id number] [address] Lymphocytes/100 WBC (Bld) 12.1 % Normal [facility] Comment on above: Order Comment: Speci men Type: BLOOD SPECIMENOrdering Facility: [facility] Address: [address] [place] [address] Performed By: #### 5 7021-8 ####[facility]ATORYCLIA [id number] [address] MCH (RBC) [Entitic mass] 28.6 pg Normal 26.0-34.0 [facility] Comment on above: Order Comment: Speci men Type: BLOOD SPECIMENOrdering Facility: [facility] Address: [address] [place] [address] Performed By: #### 5 7021-8 ####[facility]ATORYCLIA [id number] [address] MCHC (RBC) [Mass/Vol] 31.5 g/dL Normal 30.5-36.0 [facility] Comment on above: Order Comment: Speci men Type: BLOOD SPECIMENOrdering Facility: [facility] Address: [address] [place] [address] Performed By: #### 5 7021-8 ####[facility]ATORYCLIA [id number] [address] MCV (RBC) [Entitic vol] 90.9 fL Normal 80.0-100.0 [facility] Comment on above: Order Comment: Speci men Type: BLOOD SPECIMENOrdering Facility: [facility] Address: [address] [place] [address] Performed By: #### 5 7021-8 ####[facility]ATORYCLIA [id number] [address] Monocytes (Bld) [#/Vol] 0.39 10*3/uL Normal <0.87 [facility] Comment on above: Order Comment: Speci men Type: BLOOD SPECIMENOrdering Facility: [facility] Address: [address] [place] [address] Performed By: #### 5 7021-8 ####[facility] LABORATORYCLIA [id number] [address] [place] Monocytes/100 WBC (Bld) 3.0 % Normal [facility] Comment on above: Order Comment: Speci men Type: BLOOD SPECIMENOrdering Facility: [facility] Address: [address] [place] [address] Performed By: #### 5 7021-8 ####[facility]ORATORYCLIA [id number] [place] [address] [place] Neutrophils (Bld) [#/Vol] 11.09 10*3/uL High 1.45-7.50 [facility] Comment on above: Order Comment: Speci men Type: BLOOD SPECIMENOrdering Facility: [facility] Address: [address] [place] [address] Performed By: #### 5 7021-8 ####[facility]ATORYCLIA [id number] [address] [place] Neutrophils/100 WBC (Bld) 84.2 % Normal [facility] Comment on above: Order Comment: Speci men Type: BLOOD SPECIMENOrdering Facility: [facility] Address: [address] [place] [address] Performed By: #### 5 7021-8 ####[facility]ATORYCLIA [id number] [place] [address] [place] Nucleated RBC (Bld) [#/Vol] 10*3/uL Normal <0.01 [facility] Comment on above: Order Comment: Speci men Type: BLOOD SPECIMENOrdering Facility: [facility] Address: [address] [place] [address] Performed By: #### 5 7021-8 ####[facility]ATORYCLIA [id number] [address] [place] Nucleated RBC/100 WBC (Bld) [Ratio] 0.0 /[address] [facility] Comment on above: Order Comment: Speci men Type: BLOOD SPECIMENOrdering Facility: [facility] Address: [address] [place] [address] Performed By: #### 5 7021-8 ####[facility]ATORYCLIA [id number] [place] [address] [place] Platelet mean volume (Bld) [Entitic vol] 10.0 fL Normal 9.0-12.7 [facility] Comment on above: Order Comment: Speci men Type: BLOOD SPECIMENOrdering Facility: [facility] Address: [address] [place] [address] Performed By: #### 5 7021-8 ####[facility]ATORYCLIA [id number] [place] [address] [place] Platelets (Bld) [#/Vol] 358 10*3/uL Normal 150-400 [facility] Comment on above: Order Comment: Speci men Type: BLOOD SPECIMENOrdering Facility: [facility] Address: [address] [place] [address] Performed By: #### 5 7021-8 ####[facility]ATORYCLIA [id number] [place] [address] [place] RBC (Bld) [#/Vol] 3.39 10*6/uL Low 4.20-6.00 [facility] Comment on above: Order Comment: Speci men Type: BLOOD SPECIMENOrdering Facility: [facility] Address: [address] [place] [address] Performed By: #### 5 7021-8 ####[facility]ATORYCLIA [id number] [place] [address] [place] WBC (Bld) [#/Vol] 13.17 10*3/uL High 3.70-11.00 [facility] Comment on above: Order Comment: Speci men Type: BLOOD SPECIMENOrdering Facility: [facility] Address: [address] [place] [address] Performed By: #### 5 7021-8 ####[facility]ATORYCLIA [id number] [address] OF [facility] NURSING PROGon 08-02-[address] [facility] THERAPY NTon 08-02-[address] [facility] aPTT PPPon 08-02-2021 aPTT Coag (PPP) [Time] 54.9 s High 23.0-32.4 [facility] Comment on above: Order Comment: Speci men Type: BLOOD SPECIMENOrdering Facility: [facility] Address: [address] [place] [address] Performed By: #### 1 4979-9 ####[facility]ATORYCLIA [id number] [address] [place] ALLIED HEALTHon 08-01-[address] [facility] ALLIED HEALTH Normal [facility] Basic metabolic 2000 panelon 08-01-2021 Anion gap [Moles/Vol] 12 mmol/L Normal 9-18 [facility] Comment on above: Order Comment: Speci men Type: BLOOD SPECIMENOrdering Facility: [facility] Address: [address] [place] [address] Performed By: #### 2 4321-2, 69183-3, 23827-3, 2777-1 ####[facility]ATORYCLIA [id number] [place] [address] [place] Calcium [Mass/Vol] 9.1 mg/dL Normal 8.5-10.2 [facility] Comment on above: Order Comment: Speci men Type: BLOOD SPECIMENOrdering Facility: [facility] Address: [address] [place] [address] Performed By: #### 2 4321-2, 54729-0, 93569-3, 2777-1 ####[facility]ATORYCLIA [id number] [place] [address] [place] Chloride [Moles/Vol] 96 mmol/L Low 97-105 [facility] Comment on above: Order Comment: Speci men Type: BLOOD SPECIMENOrdering Facility: [facility] Address: [address] [place], [place] [address] Performed By: #### 2 4321-2, 00838-3, 91501-3, 277- ####[facility]ATORYCLIA [id number] [place] [address] [place] CO2 [Moles/Vol] 27 mmol/L Normal 22-30 [facility] Comment on above: Order Comment: Speci men Type: BLOOD SPECIMENOrdering Facility: [facility] Address: [address] [place] [address] Performed By: #### 2 4321-2, 41739-3, 50822-0, 2776- ####[facility]ATORYCLIA [id number] [address] STATES OF [facility] Creatinine [Mass/Vol] 0.64 mg/dL Low 0.73-1.22 [facility] Comment on above: Order Comment: Speci men Type: BLOOD SPECIMENOrdering Facility: [facility] Address: [address] [place] [address] Performed By: #### 2 4321-2, 80338-0, 94797-2, 2776-05 ####[facility]ATORYCLIA [id number] [address] [place] ESTIMATED GLOMERULAR FILTRATION RATE 102 mL/min/1.73m??? Normal >=60 [facility] Comment on above: Order Comment: Speci men Type: BLOOD SPECIMENOrdering Facility: [facility] Address: [address] [place] [address] Result Comment: Luzmaria mated Glomerular Filtration Rate [...] actual GFR. Performed By: #### 2 4321-2, 12687-7, 01057-3, 2777-1 ####[facility]ATORYCLIA [id number] [place] [address] [place] Glucose [Mass/Vol] 122 mg/dL High 74-99 [facility] Comment on above: Order Comment: Shira francia Type: BLOOD SPECIMENOrdering Facility: [facility] Address: [address] [place] [address] Result Comment: The [place] [employer] (ADA) provides guidance for cutoff [...] Standards of Medical Care in Diabetes 2016, [place] [employer]. Diabetes Care. 2016.39(Suppl 1). Performed By: #### 2 4321-2, 71969-0, 88090-1, 2777-1 ####[facility]ATORYCLIA [id number] [place] [address] [place] Potassium [Moles/Vol] 4.2 mmol/L Normal 3.7-5.1 [facility] Comment on above: Order Comment: Shira francia Type: BLOOD SPECIMENOrdering Facility: [facility] Address: [address] [address] Performed By: #### 2 4321-2, 30751-2, 97853-2, 2777-1 ####[facility]ATORYCLIA [id number] [place] [address] [place] Sodium [Moles/Vol] 135 mmol/L Low 136-144 [facility] Comment on above: Order Comment: Johni francia Type: BLOOD SPECIMENOrdering Facility: [facility] Address: [address] [address] Performed By: #### 2 4321-2, 73391-0, 28576-0, 2777-1 ####[facility]ATORYCLIA [id number] [place] [address] [place] Urea nitrogen [Mass/Vol] 36 mg/dL High 9-24 [facility] Comment on above: Order Comment: Speci men Type: BLOOD SPECIMENOrdering Facility: [facility] Address: [address] [place] [address] Performed By: #### 2 4321-2, 99986-0, 41513-7, 2777-1 ####[facility]ATORYCLIA [id number] [address] STATES OF [facility] CASE MANAGEMon 08-01-[address] [facility] CBC W Auto Differential pane l (Bld)on 08-01-2021 Basophils (Bld) [#/Vol] 0.04 10*3/uL Normal <0.11 [facility] Comment on above: Order Comment: Speci men Type: BLOOD SPECIMENOrdering Facility: [facility] Address: [address] [place] [address] Performed By: #### 5 7021-8 ####[facility]ATORYCLIA [id number] [address] [place] Basophils/100 WBC (Bld) 0.3 % Normal [facility] Comment on above: Order Comment: Speci men Type: BLOOD SPECIMENOrdering Facility: [facility] Address: [address] [place] [address] Performed By: #### 5 7021-8 ####[facility]ATORYCLIA [id number] [address] STATES OF [facility] Differential cell count method Nom (Bld) Auto Normal [facility] Comment on above: Order Comment: Speci men Type: BLOOD SPECIMENOrdering Facility: [facility] Address: [address] [place] [address] Performed By: #### 5 7021-8 ####[facility]ATORYCLIA [id number] [address] [place] Eosinophils (Bld) [#/Vol] 0.37 10*3/uL Normal <0.46 [facility] Comment on above: Order Comment: Speci men Type: BLOOD SPECIMENOrdering Facility: [facility] Address: [address] [place] [address] Performed By: #### 5 7021-8 ####[facility]ATORYCLIA [id number] [address] [place] Eosinophils/100 WBC (Bld) 3.1 % Normal [facility] Comment on above: Order Comment: Speci men Type: BLOOD SPECIMENOrdering Facility: [facility] Address: [address] [place] [address] Performed By: #### 5 7021-8 ####[facility]ATORYCLIA [id number] [address] Erythrocyte distribution width (RBC) [Ratio] 17.5 % High 11.5-15.0 [facility] Comment on above: Order Comment: Speci men Type: BLOOD SPECIMENOrdering Facility: [facility] Address: [address] [place] [address] Performed By: #### 5 7021-8 ####[facility]ATORYCLIA [id number] [address] [place] Hematocrit (Bld) [Volume fraction] 30.1 % Low 39.0-51.0 [facility] Comment on above: Order Comment: Speci men Type: BLOOD SPECIMENOrdering Facility: [facility] Address: [address] [place] [address] Performed By: #### 5 7021-8 ####[facility]ATORYCLIA [id number] [address] [place] Hemoglobin (Bld) [Mass/Vol] 9.1 g/dL Low 13.0-17.0 [facility] Comment on above: Order Comment: Speci men Type: BLOOD SPECIMENOrdering Facility: [facility] Address: [address] [address] Performed By: #### 5 7021-8 ####[facility]ATORYCLIA [id number] [address] IMMATURE GRAN % 0.6 % Normal [facility] Comment on above: Order Comment: Speci men Type: BLOOD SPECIMENOrdering Facility: [facility] Address: [address] [place] [address] Performed By: #### 5 7021-8 ####[facility]ATORYCLIA [id number] [address] IMMATURE GRAN ABS 0.07 k/uL Normal <0.10 [facility] Comment on above: Order Comment: Speci men Type: BLOOD SPECIMENOrdering Facility: [facility] Address: [address] [place] [address] Performed By: #### 5 7021-8 ####[facility]ATORYCLIA [id number] [address] Lymphocytes (Bld) [#/Vol] 2.05 10*3/uL Normal 1.00-4.00 [facility] Comment on above: Order Comment: Speci men Type: BLOOD SPECIMENOrdering Facility: [facility] Address: [address] [place] [address] Performed By: #### 5 7021-8 ####[facility]ORYCLIA [id number] [address] Lymphocytes/100 WBC (Bld) 17.1 % Normal [facility] Comment on above: Order Comment: Speci men Type: BLOOD SPECIMENOrdering Facility: [facility] Address: [address] [place] [address] Performed By: #### 5 7021-8 ####[facility]ORYCLIA [id number] [address] MCH (RBC) [Entitic mass] 27.7 pg Normal 26.0-34.0 [facility] Comment on above: Order Comment: Speci men Type: BLOOD SPECIMENOrdering Facility: [facility] Address: [address] [place] [address] Performed By: #### 5 7021-8 ####[facility]ATORYCLIA [id number] [address] MCHC (RBC) [Mass/Vol] 30.2 g/dL Low 30.5-36.0 [facility] Comment on above: Order Comment: Speci men Type: BLOOD SPECIMENOrdering Facility: [facility] Address: [address] [place] [address] Performed By: #### 5 7021-8 ####[facility]ORYCLIA [id number] [address] MCV (RBC) [Entitic vol] 91.5 fL Normal 80.0-100.0 [facility] Comment on above: Order Comment: Speci men Type: BLOOD SPECIMENOrdering Facility: [facility] Address: [address] [place] [address] Performed By: #### 5 7021-8 ####[facility]ATORYCLIA [id number] [address] Monocytes (Bld) [#/Vol] 0.53 10*3/uL Normal <0.87 [facility] Comment on above: Order Comment: Speci men Type: BLOOD SPECIMENOrdering Facility: [facility] Address: [address] [place] [address] Performed By: #### 5 7021-8 ####[facility]ATORYCLIA [id number] [address] Monocytes/100 WBC (Bld) 4.4 % Normal [facility] Comment on above: Order Comment: Speci men Type: BLOOD SPECIMENOrdering Facility: [facility] Address: [address] [place] [address] Performed By: #### 5 7021-8 ####[facility]ORATORYCLIA [id number] [place] [address] [place] Neutrophils (Bld) [#/Vol] 8.91 10*3/uL High 1.45-7.50 [facility] Comment on above: Order Comment: Speci men Type: BLOOD SPECIMENOrdering Facility: [facility] Address: [address] [place] [address] Performed By: #### 5 7021-8 ####[facility]ATORYCLIA [id number] [address] [place] Neutrophils/100 WBC (Bld) 74.5 % Normal [facility] Comment on above: Order Comment: Speci men Type: BLOOD SPECIMENOrdering Facility: [facility] Address: [address] [place] [address] Performed By: #### 5 7021-8 ####[facility]ATORYCLIA [id number] [address] [place] Nucleated RBC (Bld) [#/Vol] 10*3/uL Normal <0.01 [facility] Comment on above: Order Comment: Speci men Type: BLOOD SPECIMENOrdering Facility: [facility] Address: [address] [place] [address] Performed By: #### 5 7021-8 ####[facility]ATORYCLIA [id number] [address] [place] Nucleated RBC/100 WBC (Bld) [Ratio] 0.0 /[address] [facility] Comment on above: Order Comment: Speci men Type: BLOOD SPECIMENOrdering Facility: [facility] Address: [address] [place] [address] Performed By: #### 5 7021-8 ####[facility]ATORYCLIA [id number] [address] [place] Platelet mean volume (Bld) [Entitic vol] 10.4 fL Normal 9.0-12.7 [facility] Comment on above: Order Comment: Speci men Type: BLOOD SPECIMENOrdering Facility: [facility] Address: [address] [place] [address] Performed By: #### 5 7021-8 ####[facility]ATORYCLIA [id number] [address] STATES OF [facility] Platelets (Bld) [#/Vol] 319 10*3/uL Normal 150-400 [facility] Comment on above: Order Comment: Speci men Type: BLOOD SPECIMENOrdering Facility: [facility] Address: [address] [place] [address] Performed By: #### 5 7021-8 ####[facility]ATORYCLIA [id number] [place] [address] [place] RBC (Bld) [#/Vol] 3.29 10*6/uL Low 4.20-6.00 [facility] Comment on above: Order Comment: Speci men Type: BLOOD SPECIMENOrdering Facility: [facility] Address: [address] [place] [address] Performed By: #### 5 7021-8 ####[facility]ATORYCLIA [id number] [address] OF [facility] WBC (Bld) [#/Vol] 11.97 10*3/uL High 3.70-11.00 [facility] Comment on above: Order Comment: Speci men Type: BLOOD SPECIMENOrdering Facility: [facility] Address: [address] [place] [address] Performed By: #### 5 7021-8 ####[facility]ATORYCLIA [id number] [address] [place] CT BRAIN WO IVCONon 08-02-19 CT BRAIN WO IVCON Normal [facility] Magnesium SerPl-mCncon 08-01 Magnesium [Mass/Vol] 2.4 mg/dL High 1.7-2.3 [facility] Comment on above: Order Comment: Speci men Type: BLOOD SPECIMENOrdering Facility: [facility] Address: [address] [place] [address] Performed By: #### 2 4321-2, 39777-9, 41212-6, 2777-1 ####[facility]ATORYCLIA [id number] [address] [place] NURSING PROGon 08-01-[address] [facility] NUTRITIONon 08-01-[address] [facility] Phosphate SerPl-mCncon 08-01 Phosphate [Mass/Vol] 3.3 mg/dL Normal 2.7-4.8 [facility] Comment on above: Order Comment: Speci men Type: BLOOD SPECIMENOrdering Facility: [facility] Address: [address] [place] [address] Performed By: #### 2 4321-2, 73524-0, 20881-3, 2777-1 ####[facility] LABORATORYCLIA [id number] [address] [place] Prealbumin [Mass/Vol]on 07-06 Prealbumin Nephelometry [Mass/Vol] 30 mg/dL Normal 17-36 [facility] Comment on above: Order Comment: Speci men Type: BLOOD SPECIMENOrdering Facility: [facility] Address: [address] [place] [address] Performed By: #### 2 4321-2, 69862-6, 27269-2, 2777-1 ####[facility] LABORATORYCLIA [id number] [address] [place] THERAPY NTon 08-01-[address] [facility] THERAPY NT Normal [facility] TYPE AND SCREENon 08-01-[address] [facility] Comment on above: Order Comment: Speci men Type: BLOOD SPECIMENOrdering Facility: [facility] Address: [address] [place] [address] Performed By: #### T SCR ####[facility]LO[facility] BANKCLIA [id number] [address] [place] HISTORICAL AB SCR STATUS Negative Normal St. [facility] Comment on above: Order Comment: Speci men Type: BLOOD SPECIMENOrdering Facility: [facility] Address: [address] [address] Performed By: #### T SCR ####[facility] BLOOD BANKCLIA [id number] [address] Rh Nom (Bld) Positive Normal [facility] Comment on above: Order Comment: Speci men Type: BLOOD SPECIMENOrdering Facility: [facility] Address: [address] [place] [address] Performed By: #### T SCR ####[facility] BLOOD BANKCLIA [id number] [address] TYPE AND SCREEN EXPIRATION 08/04/2021 23:[address] [facility] [facility] Comment on above: Order Comment: Speci men Type: BLOOD SPECIMENOrdering Facility: [facility] Address: [address] [place] [address] Performed By: #### T SCR ####[facility] BLOOD BANKCLIA [id number] [address] OF [facility] XR CHEST 1V FRONTALon 2021 XR CHEST 1V FRONTAL Normal [facility] aPTT PPPon 08-01-2021 aPTT Coag (PPP) [Time] 50.9 s High 23.0-32.4 [facility] Comment on above: Order Comment: Speci men Type: BLOOD SPECIMENOrdering Facility: [facility] Address: [address] [place] [address] Performed By: #### 1 4979-9 ####[facility] LABORATORYCLIA [id number] [address] CBC W Auto Differential pane l (Bld)on 07-31-2021 Basophils (Bld) [#/Vol] 0.05 10*3/uL Normal <0.11 [facility] Comment on above: Order Comment: Speci men Type: BLOOD SPECIMENOrdering Facility: [facility] Address: [address] [place] [address] Performed By: #### 5 7021-8 ####[facility] LABORATORYCLIA [id number] [address] [place] Basophils/100 WBC (Bld) 0.4 % Normal [facility] Comment on above: Order Comment: Speci men Type: BLOOD SPECIMENOrdering Facility: [facility] Address: [address] [place] [address] Performed By: #### 5 7021-8 ####[facility] LABORATORYCLIA [id number] [address] [place] Differential cell count method Nom (Bld) Auto Normal [facility] Comment on above: Order Comment: Speci men Type: BLOOD SPECIMENOrdering Facility: [facility] Address: [address] [place] [address] Performed By: #### 5 7021-8 ####[facility] LABORATORYCLIA [id number] [place] [address] [place] Eosinophils (Bld) [#/Vol] 0.51 10*3/uL High <0.46 [facility] Comment on above: Order Comment: Speci men Type: BLOOD SPECIMENOrdering Facility: [facility] Address: [address] [place] [address] Performed By: #### 5 7021-8 ####[facility] LABORATORYCLIA [id number] [address] [place] Eosinophils/100 WBC (Bld) 4.5 % Normal [facility] Comment on above: Order Comment: Speci men Type: BLOOD SPECIMENOrdering Facility: [facility] Address: [address] [place] [address] Performed By: #### 5 7021-8 ####[facility] LABORATORYCLIA [id number] [address] [place] Erythrocyte distribution width (RBC) [Ratio] 17.5 % High 11.5-15.0 [facility] Comment on above: Order Comment: Speci men Type: BLOOD SPECIMENOrdering Facility: [facility] Address: [address] [place] [address] Performed By: #### 5 7021-8 ####[facility] LABORATORYCLIA [id number] [address] Hematocrit (Bld) [Volume fraction] 30.4 % Low 39.0-51.0 [facility] Comment on above: Order Comment: Speci men Type: BLOOD SPECIMENOrdering Facility: [facility] Address: [address] [place] [address] Performed By: #### 5 7021-8 ####[facility] LABORATORYCLIA [id number] [address] Hemoglobin (Bld) [Mass/Vol] 9.2 g/dL Low 13.0-17.0 [facility] Comment on above: Order Comment: Speci men Type: BLOOD SPECIMENOrdering Facility: [facility] Address: [address] [place] [address] Performed By: #### 5 7021-8 ####[facility] LABORATORYCLIA [id number] [address] IMMATURE GRAN % 0.5 % Normal [facility] Comment on above: Order Comment: Speci men Type: BLOOD SPECIMENOrdering Facility: [facility] Address: [address] [place] [address] Performed By: #### 5 7021-8 ####[facility] LABORATORYCLIA [id number] [address] IMMATURE GRAN ABS 0.06 k/uL Normal <0.10 [facility] Comment on above: Order Comment: Speci men Type: BLOOD SPECIMENOrdering Facility: [facility] Address: [address] [place] [address] Performed By: #### 5 7021-8 ####[facility] LABORATORYCLIA [id number] [address] Lymphocytes (Bld) [#/Vol] 1.99 10*3/uL Normal 1.00-4.00 [facility] Comment on above: Order Comment: Speci men Type: BLOOD SPECIMENOrdering Facility: [facility] Address: [address] [place] [address] Performed By: #### 5 7021-8 ####[facility] LABORATORYCLIA [id number] [address] Lymphocytes/100 WBC (Bld) 17.6 % Normal [facility] Comment on above: Order Comment: Speci men Type: BLOOD SPECIMENOrdering Facility: [facility] Address: [address] [place] [address] Performed By: #### 5 7021-8 ####[facility] LABORATORYCLIA [id number] [address] MCH (RBC) [Entitic mass] 28.4 pg Normal 26.0-34.0 [facility] Comment on above: Order Comment: Speci men Type: BLOOD SPECIMENOrdering Facility: [facility] Address: [address] [place] [address] Performed By: #### 5 7021-8 ####[facility] LABORATORYCLIA [id number] [address] MCHC (RBC) [Mass/Vol] 30.3 g/dL Low 30.5-36.0 [facility] Comment on above: Order Comment: Speci men Type: BLOOD SPECIMENOrdering Facility: [facility] Address: [address] [place] [address] Performed By: #### 5 7021-8 ####[facility] LABORATORYCLIA [id number] [address] MCV (RBC) [Entitic vol] 93.8 fL Normal 80.0-100.0 [facility] Comment on above: Order Comment: Speci men Type: BLOOD SPECIMENOrdering Facility: [facility] Address: [address] [place] [address] Performed By: #### 5 7021-8 ####[facility] LABORATORYCLIA [id number] [address] Monocytes (Bld) [#/Vol] 0.57 10*3/uL Normal <0.87 [facility] Comment on above: Order Comment: Speci men Type: BLOOD SPECIMENOrdering Facility: [facility] Address: [address] [place] [address] Performed By: #### 5 7021-8 ####[facility]ORATORYCLIA [id number] [address] [place] Monocytes/100 WBC (Bld) 5.0 % Normal [facility] Comment on above: Order Comment: Speci men Type: BLOOD SPECIMENOrdering Facility: [facility] Address: [address] [place] [address] Performed By: #### 5 7021-8 ####[facility]ORATORYCLIA [id number] [address] [place] Neutrophils (Bld) [#/Vol] 8.12 10*3/uL High 1.45-7.50 [facility] Comment on above: Order Comment: Speci men Type: BLOOD SPECIMENOrdering Facility: [facility] Address: [address] [place] [address] Performed By: #### 5 7021-8 ####[facility]ORATORYCLIA [id number] [address] Neutrophils/100 WBC (Bld) 72.0 % Normal [facility] Comment on above: Order Comment: Speci men Type: BLOOD SPECIMENOrdering Facility: [facility] Address: [address] [place] [address] Performed By: #### 5 7021-8 ####[facility] LABORATORYCLIA [id number] [address] [place] Nucleated RBC (Bld) [#/Vol] 10*3/uL Normal <0.01 [facility] Comment on above: Order Comment: Speci men Type: BLOOD SPECIMENOrdering Facility: [facility] Address: [address] [place] [address] Performed By: #### 5 7021-8 ####[facility] LABORATORYCLIA [id number] [place] [address] [place] Nucleated RBC/100 WBC (Bld) [Ratio] 0.0 /[address] [facility] Comment on above: Order Comment: Speci men Type: BLOOD SPECIMENOrdering Facility: [facility] Address: [address] [place] [address] Performed By: #### 5 7021-8 ####[facility] LABORATORYCLIA [id number] [place] [address] [place] Platelet mean volume (Bld) [Entitic vol] 10.9 fL Normal 9.0-12.7 [facility] Comment on above: Order Comment: Speci men Type: BLOOD SPECIMENOrdering Facility: [facility] Address: [address] [place] [address] Performed By: #### 5 7021-8 ####[facility] LABORATORYCLIA [id number] [address] [place] Platelets (Bld) [#/Vol] 303 10*3/uL Normal 150-400 [facility] Comment on above: Order Comment: Speci men Type: BLOOD SPECIMENOrdering Facility: [facility] Address: [address] [place] [address] Performed By: #### 5 7021-8 ####[facility] LABORATORYCLIA [id number] [place] [address] [place] RBC (Bld) [#/Vol] 3.24 10*6/uL Low 4.20-6.00 [facility] Comment on above: Order Comment: Speci men Type: BLOOD SPECIMENOrdering Facility: [facility] Address: [address] [place] [address] Performed By: #### 5 7021-8 ####[facility] LABORATORYCLIA [id number] [place] [address] [place] WBC (Bld) [#/Vol] 11.30 10*3/uL High 3.70-11.00 [facility] Comment on above: Order Comment: Speci men Type: BLOOD SPECIMENOrdering Facility: [facility] Address: [address] [place] [address] Performed By: #### 5 7021-8 ####[facility] LABORATORYCLIA [id number] [address] [place] NURSING PROGon 07-31-[address] [facility] aPTT PPPon 07-31-2021 aPTT Coag (PPP) [Time] 64.9 s High 23.0-32.4 [facility] Comment on above: Order Comment: Speci men Type: BLOOD SPECIMENOrdering Facility: [facility] Address: [address] [place] [address] Performed By: #### 1 4979-9 ####[facility] LABORATORYCLIA [id number] [address] [place] ALLIED HEALTHon 07-30-[address] [facility] Bacteria CSF Culton 07-31-19 22 Bacteria identified Cx Nom (CSF) CULTURE, CSF: No growth 14 days GRAM STAIN: No organisms seen Few Mononuclear cells Rare Polymorphonuclear leukocytes Gram stain performed on cytospun specimen. Normal [facility] Comment on above: Performed By: #### 6 06-4 ####[facility] LABORATORYCLIA [id number] [place] [address] [place] Basic metabolic 2000 panelon 07-30-2021 Anion gap [Moles/Vol] 9 mmol/L Normal 9-18 [facility] Comment on above: Order Comment: Speci men Type: BLOOD SPECIMENOrdering Facility: [facility] Address: [address] [place] [address] Performed By: #### 2 777-1, 45746-9, 48584-5 ####[facility] LABORATORYCLIA [id number] [place] [address] [place] Calcium [Mass/Vol] 8.9 mg/dL Normal 8.5-10.2 [facility] Comment on above: Order Comment: Speci men Type: BLOOD SPECIMENOrdering Facility: [facility] Address: [address] [place] [address] Performed By: #### 2 777-1, 05966-4, ####[facility] LABORATORYCLIA [id number] [place] [address] [place] Chloride [Moles/Vol] 95 mmol/L Low 97-105 [facility] Comment on above: Order Comment: Speci men Type: BLOOD SPECIMENOrdering Facility: [facility] Address: [address] [place] [address] Performed By: #### 2 777-1, 71531-3, ####[facility] LABORATORYCLIA [id number] [address] [place] CO2 [Moles/Vol] 28 mmol/L Normal 22-30 [facility] Comment on above: Order Comment: Speci men Type: BLOOD SPECIMENOrdering Facility: [facility] Address: [address] [place] [address] Performed By: #### 2 777-1, , ####[facility] LABORATORYCLIA [id number] [address] [place] Creatinine [Mass/Vol] 0.67 mg/dL Low 0.73-1.22 [facility] Comment on above: Order Comment: Speci men Type: BLOOD SPECIMENOrdering Facility: [facility] Address: [address] [place] [address] Performed By: #### 2 777-1, , ####[facility] LABORATORYCLIA [id number] [address] OF [facility] ESTIMATED GLOMERULAR FILTRATION RATE 101 mL/min/1.73m??? Normal >=60 [facility] Comment on above: Order Comment: Speci men Type: BLOOD SPECIMENOrdering Facility: [facility] Address: [address] [place] [address] Result Comment: Luzmaria mated Glomerular Filtration Rate [...] actual GFR. Performed By: #### 2 777-1, 23652-5, ####[facility] LABORATORYCLIA [id number] [place] [address] [place] Glucose [Mass/Vol] 125 mg/dL High 74-99 [facility] Comment on above: Order Comment: Shira feldman Type: BLOOD SPECIMENOrdering Facility: [facility] Address: [address] [place] [address] Result Comment: The [place] [employer] (ADA) provides guidance for cutoff [...] Standards of Medical Care in Diabetes 2016, [place] [employer]. Diabetes Care. 2016.39(Suppl 1). Performed By: #### 2 777-1, , ####[facility] LABORATORYCLIA [id number] [place] [address] [place] Potassium [Moles/Vol] 3.9 mmol/L Normal 3.7-5.1 [facility] Comment on above: Order Comment: Shira feldman Type: BLOOD SPECIMENOrdering Facility: [facility] Address: [address] [place] [address] Performed By: #### 2 777-1, 02618-7, ####[facility] LABORATORYCLIA [id number] [place] [address] [place] Sodium [Moles/Vol] 132 mmol/L Low 136-144 [facility] Comment on above: Order Comment: Speci men Type: BLOOD SPECIMENOrdering Facility: [facility] Address: [address] [place] [address] Performed By: #### 2 777-1, 09429-1, ####[facility] LABORATORYCLIA [id number] [address] STATES [facility] Urea nitrogen [Mass/Vol] 38 mg/dL High 9-24 [facility] Comment on above: Order Comment: Speci men Type: BLOOD SPECIMENOrdering Facility: [facility] Address: [address] [place] [address] Performed By: #### 2 777-1, 28281-0, ####[facility] LABORATORYCLIA [id number] [address] STATES OF [facility] CBC W Auto Differential pane l (Bld)on 07-30-2021 Basophils (Bld) [#/Vol] 0.04 10*3/uL Normal <0.11 [facility] Comment on above: Order Comment: Speci men Type: BLOOD SPECIMENOrdering Facility: [facility] Address: [address] [place] [address] Performed By: #### 5 7021-8 ####[facility] LABORATORYCLIA [id number] [address] [place] Basophils/100 WBC (Bld) 0.4 % Normal [facility] Comment on above: Order Comment: Speci men Type: BLOOD SPECIMENOrdering Facility: [facility] Address: [address] [place] [address] Performed By: #### 5 7021-8 ####[facility] LABORATORYCLIA [id number] [address] Differential cell count method Nom (Bld) Auto Normal [facility] Comment on above: Order Comment: Speci men Type: BLOOD SPECIMENOrdering Facility: [facility] Address: [address] [place] [address] Performed By: #### 5 7021-8 ####[facility]ORATORYCLIA [id number] [address] [place] Eosinophils (Bld) [#/Vol] 0.30 10*3/uL Normal <0.46 [facility] Comment on above: Order Comment: Speci men Type: BLOOD SPECIMENOrdering Facility: [facility] Address: [address] [place] [address] Performed By: #### 5 7021-8 ####[facility] LABORATORYCLIA [id number] [address] Eosinophils/100 WBC (Bld) 2.7 % Normal [facility] Comment on above: Order Comment: Speci men Type: BLOOD SPECIMENOrdering Facility: [facility] Address: [address] [place] [address] Performed By: #### 5 7021-8 ####[facility] LABORATORYCLIA [id number] [address] Erythrocyte distribution width (RBC) [Ratio] 17.2 % High 11.5-15.0 [facility] Comment on above: Order Comment: Speci men Type: BLOOD SPECIMENOrdering Facility: [facility] Address: [address] [place] [address] Performed By: #### 5 7021-8 ####[facility] LABORATORYCLIA [id number] [address] [place] Hematocrit (Bld) [Volume fraction] 30.8 % Low 39.0-51.0 [facility] Comment on above: Order Comment: Speci men Type: BLOOD SPECIMENOrdering Facility: [facility] Address: [address] [place] [address] Performed By: #### 5 7021-8 ####[facility] LABORATORYCLIA [id number] [address] [place] Hemoglobin (Bld) [Mass/Vol] 9.4 g/dL Low 13.0-17.0 [facility] Comment on above: Order Comment: Speci men Type: BLOOD SPECIMENOrdering Facility: [facility] Address: [address] [place] [address] Performed By: #### 5 7021-8 ####[facility] LABORATORYCLIA [id number] [address] IMMATURE GRAN % 0.5 % Normal [facility] Comment on above: Order Comment: Speci men Type: BLOOD SPECIMENOrdering Facility: [facility] Address: [address] [place] [address] Performed By: #### 5 7021-8 ####[facility] LABORATORYCLIA [id number] [address] IMMATURE GRAN ABS 0.06 k/uL Normal <0.10 [facility] Comment on above: Order Comment: Speci men Type: BLOOD SPECIMENOrdering Facility: [facility] Address: [address] [place] [address] Performed By: #### 5 7021-8 ####[facility] LABORATORYCLIA [id number] [address] Lymphocytes (Bld) [#/Vol] 1.68 10*3/uL Normal 1.00-4.00 [facility] Comment on above: Order Comment: Speci men Type: BLOOD SPECIMENOrdering Facility: [facility] Address: [address] [place] [address] Performed By: #### 5 7021-8 ####[facility] LABORATORYCLIA [id number] [address] Lymphocytes/100 WBC (Bld) 15.3 % Normal [facility] Comment on above: Order Comment: Speci men Type: BLOOD SPECIMENOrdering Facility: [facility] Address: [address] [place] [address] Performed By: #### 5 7021-8 ####[facility] LABORATORYCLIA [id number] [address] MCH (RBC) [Entitic mass] 28.0 pg Normal 26.0-34.0 [facility] Comment on above: Order Comment: Speci men Type: BLOOD SPECIMENOrdering Facility: [facility] Address: [address] [place] [address] Performed By: #### 5 7021-8 ####[facility] LABORATORYCLIA [id number] [address] STATES OF [facility] MCHC (RBC) [Mass/Vol] 30.5 g/dL Normal 30.5-36.0 [facility] Comment on above: Order Comment: Speci men Type: BLOOD SPECIMENOrdering Facility: [facility] Address: [address] [place] [address] Performed By: #### 5 7021-8 ####[facility] LABORATORYCLIA [id number] [address] STATES OF [facility] MCV (RBC) [Entitic vol] 91.7 fL Normal 80.0-100.0 [facility] Comment on above: Order Comment: Speci men Type: BLOOD SPECIMENOrdering Facility: [facility] Address: [address] [place] [address] Performed By: #### 5 7021-8 ####[facility] LABORATORYCLIA [id number] [address] Monocytes (Bld) [#/Vol] 0.53 10*3/uL Normal <0.87 [facility] Comment on above: Order Comment: Speci men Type: BLOOD SPECIMENOrdering Facility: [facility] Address: [address] [place] [address] Performed By: #### 5 7021-8 ####[facility] LABORATORYCLIA [id number] [address] Monocytes/100 WBC (Bld) 4.8 % Normal [facility] Comment on above: Order Comment: Speci men Type: BLOOD SPECIMENOrdering Facility: [facility] Address: [address] [place] [address] Performed By: #### 5 7021-8 ####[facility] LABORATORYCLIA [id number] [place] [address] [place] Neutrophils (Bld) [#/Vol] 8.39 10*3/uL High 1.45-7.50 [facility] Comment on above: Order Comment: Speci men Type: BLOOD SPECIMENOrdering Facility: [facility] Address: [address] [place] [address] Performed By: #### 5 7021-8 ####[facility] LABORATORYCLIA [id number] [address] [place] Neutrophils/100 WBC (Bld) 76.3 % Normal [facility] Comment on above: Order Comment: Speci men Type: BLOOD SPECIMENOrdering Facility: [facility] Address: [address] [place] [address] Performed By: #### 5 7021-8 ####[facility] LABORATORYCLIA [id number] [address] STATES [facility] Nucleated RBC (Bld) [#/Vol] 10*3/uL Normal <0.01 [facility] Comment on above: Order Comment: Speci men Type: BLOOD SPECIMENOrdering Facility: [facility] Address: [address] [place] [address] Performed By: #### 5 7021-8 ####[facility] LABORATORYCLIA [id number] [address] [place] Nucleated RBC/100 WBC (Bld) [Ratio] 0.0 /[address] [facility] Comment on above: Order Comment: Speci men Type: BLOOD SPECIMENOrdering Facility: [facility] Address: [address] [place] [address] Performed By: #### 5 7021-8 ####[facility] LABORATORYCLIA [id number] [address] [place] Platelet mean volume (Bld) [Entitic vol] 10.9 fL Normal 9.0-12.7 [facility] Comment on above: Order Comment: Speci men Type: BLOOD SPECIMENOrdering Facility: [facility] Address: [address] [place], [place] [id number] Performed By: #### 5 7021-8 ####[facility] LABORATORYCLIA [id number] [address] Platelets (Bld) [#/Vol] 287 10*3/uL Normal 150-400 [facility] Comment on above: Order Comment: Speci men Type: BLOOD SPECIMENOrdering Facility: [facility] Address: [address] [place] [address] Performed By: #### 5 7021-8 ####[facility] LABORATORYCLIA [id number] [address] RBC (Bld) [#/Vol] 3.36 10*6/uL Low 4.20-6.00 [facility] Comment on above: Order Comment: Speci men Type: BLOOD SPECIMENOrdering Facility: [facility] Address: [address] [place] [address] Performed By: #### 5 7021-8 ####[facility] LABORATORYCLIA [id number] [address] WBC (Bld) [#/Vol] 11.00 10*3/uL Normal 3.70-11.00 [facility] Comment on above: Order Comment: Speci men Type: BLOOD SPECIMENOrdering Facility: [facility] Address: [address] [place] [address] Performed By: #### 5 7021-8 ####[facility] LABORATORYCLIA [id number] [address] CSF MANUAL DIFFon 07-30-2021 DIF TTL, CSF [address] [facility] Comment on above: Order Comment: Speci men Type: CEREBROSPINAL FLUIDOrdering Facility: [facility] Address: [address] [place] [address] Performed By: #### L [id number], [id number], 92792-0 ####[facility] [facility] LABORATORYCLIA [id number] [place] [address] [place] EOSIN%, CSF 0 % Normal [facility] Comment on above: Order Comment: Speci men Type: CEREBROSPINAL FLUIDOrdering Facility: [facility] Address: [address] [place] [address] Performed By: #### L [id number], [id number], 65512-9 ####[facility]ATORYCLIA [id number] [place] [address] [place] LYMPH%, CSF 75 % Normal 50-90 [facility] Comment on above: Order Comment: Speci men Type: CEREBROSPINAL FLUIDOrdering Facility: [facility] Address: [address] [place] [address] Performed By: #### L [id number], [id number], 01849-4 ####[facility]ATORYCLIA [id number] [place] [address] [place] MACRO%, CSF 9 % High <1 [facility] Comment on above: Order Comment: Speci men Type: CEREBROSPINAL FLUIDOrdering Facility: [facility] Address: [address] [place] [address] Performed By: #### L [id number], [id number], 64115-3 ####[facility]ATORYCLIA [id number] [place] [address] [place] MONO%, CSF 10 % Normal 10-50 [facility] Comment on above: Order Comment: Speci men Type: CEREBROSPINAL FLUIDOrdering Facility: [facility] Address: [address] [place] [address] Performed By: #### L [id number], [id number], 46498-0 ####[facility]ATORYCLIA [id number] [address] [place] OTHER CL%, CSF 4 % Normal [facility] Comment on above: Order Comment: Speci men Type: CEREBROSPINAL FLUIDOrdering Facility: [facility] Address: [address] [place] [address] Result Comment: Path review to follow. Performed By: #### L [id number], [id number], 07243-5 ####[facility]ORATORYCLIA [id number] [address] [place] REAC LYMPH %, CSF 2 % Normal [facility] Comment on above: Order Comment: Speci men Type: CEREBROSPINAL FLUIDOrdering Facility: [facility] Address: [address] [place] [address] Performed By: #### L [id number], [id number], 09238-2 ####[facility]ORATORYCLIA [id number] [address] [place] CSF PATHOLOGIST INTERP (LAB REFLEX ORDER-NO BILL)on 07-30-2021 CSF STAFF REVIEW Negative Normal [facility] Comment on above: Order Comment: Speci men Type: CEREBROSPINAL FLUIDOrdering Facility: [facility] Address: [address] [place] [address] Performed By: #### L [id number], [id number], 09932-9 ####[facility]ATORYCLIA [id number] [address] Pathologist name Reviewed by Eloise rebolledo MD Normal [facility] Comment on above: Order Comment: Speci men Type: CEREBROSPINAL FLUIDOrdering Facility: [facility] Address: [address] [place] [address] Performed By: #### L [id number], [id number], 03533-9 ####[facility]ATORYCLIA [id number] [address] [place] CT BRAIN WO IVCONon 07-31-[address] BRAIN WO IVCON Normal [facility] Cell count panel (CSF)on Clarity (CSF) Clear Normal Clear [facility] Comment on above: Order Comment: Speci men Type: CEREBROSPINAL FLUIDOrdering Facility: [facility] Address: [address] [place] [address] Performed By: #### L [id number], [id number], 55426-6 ####[facility]ORATORYCLIA [id number] [address] Clarity (Unsp spec) Clear Normal Clear [facility] Comment on above: Order Comment: Speci men Type: CEREBROSPINAL FLUIDOrdering Facility: [facility] Address: [address] [place] [address] Performed By: #### L [id number], [id number], 56195-1 ####[facility]ATORYCLIA [id number] [address] Color (CSF) Colorless Normal Colorless [facility] Comment on above: Order Comment: Speci men Type: CEREBROSPINAL FLUIDOrdering Facility: [facility] Address: [address] [place] [address] Performed By: #### L [id number], [id number], 45103-5 ####[facility]ORATORYCLIA [id number] [address] Color (Spun CSF) Colorless Normal Colorless [facility] Comment on above: Order Comment: Speci men Type: CEREBROSPINAL FLUIDOrdering Facility: [facility] Address: [address] [place], [place] [address] Performed By: #### L [id number], TLQ5815, 50442-4 ####[facility]ORATORYCLIA [id number] [address] CSF TUBE NUMBER [employer] Normal [facility] Comment on above: Order Comment: Speci men Type: CEREBROSPINAL FLUIDOrdering Facility: [facility] Address: [address] [place], [place] [address] Performed By: #### L [id number], UMY3899, 67635-5 ####[facility]ATORYCLIA [id number] [address] RBC Manual cnt (CSF) [#/Vol] 9 cells/uL High 0-5 [facility] Comment on above: Order Comment: Speci men Type: CEREBROSPINAL FLUIDOrdering Facility: [facility] Address: [address] [place], [place] [address] Performed By: #### L [id number], [id number], 82726-7 ####[facility]ORATORYCLIA [id number] [place] [address] [place] WBC Manual cnt (CSF) [#/Vol] 8 cells/uL High 0-5 [facility] Comment on above: Order Comment: Speci men Type: CEREBROSPINAL FLUIDOrdering Facility: [facility] Address: [address] [place] [address] Performed By: #### L [id number], [id number], 43922-0 ####[facility]ORATORYCLIA [id number] [address] STATES OF [facility] Glucose CSF-mCncon Glucose (CSF) [Mass/Vol] 65 mg/dL Normal 40-70 [facility] Comment on above: Order Comment: Speci men Type: CEREBROSPINAL FLUIDOrdering Facility: [facility] Address: [address] [place] [address] Result Comment: Lumb ar CSF glucose values of healthy patients are approximately 60% of the plasma values and must always be compared with a concurrently measured plasma value for adequate clinical interpretation.References: 1. Glucose HK (GLUC3) [package insert V 12.0 Lebanese]. [employer], [place], [place]. September 2015. 2. Michelle Moore, Loki, H. (2015). Chapter 7: Glucose and Lactate. Marianela Alcocer al.(eds.), Cerebrospinal Fluid in Clinical Neurology. Bee: [employer]. Performed By: #### 2 342-4, 2880-3 ####[facility]ORATORYCLIA [id number] [address] [place] Magnesium SerPl-ncon 07-30 Magnesium [Mass/Vol] 2.5 mg/dL High 1.7-2.3 [facility] Comment on above: Order Comment: Speci men Type: BLOOD SPECIMENOrdering Facility: [facility] Address: [address] [place] [address] Performed By: #### 2 777-1, 03256-0, 49650-3 ####[facility]ATORYCLIA [id number] [address] NURSING PROGon 07-30-[address] [facility] Phosphate SerPl-mCncon 07-30 Phosphate [Mass/Vol] 2.4 mg/dL Low 2.7-4.8 [facility] Comment on above: Order Comment: Speci men Type: BLOOD SPECIMENOrdering Facility: [facility] Address: [address] [place] [address] Performed By: #### 2 777-1, 72055-3, 11781-2 ####[facility]ORATORYCLIA [id number] [address] Prot CSF-mCncon 07-30-2021 Protein (CSF) [Mass/Vol] 50 mg/dL High 15-45 [facility] Comment on above: Order Comment: Speci men Type: CEREBROSPINAL FLUIDOrdering Facility: [facility] Address: [address] [place] [address] Performed By: #### 2 342-4, 2880-3 ####[facility]ORATORYCLIA [id number] [address] aPTT PPPon 07-30-2021 aPTT Coag (PPP) [Time] 64.1 s High 23.0-32.4 [facility] Comment on above: Order Comment: Speci men Type: BLOOD SPECIMENOrdering Facility: [facility] Address: [address] [place] [address] Performed By: #### 1 4979-9 ####[facility]ORATORYCLIA [id number] [address] [place] Bacteria CSF Culton 07-30-19 22 Bacteria identified Cx Nom (CSF) CULTURE, CSF: No growth 14 days GRAM STAIN: No cells or organisms seen Gram stain performed on cytospun specimen. Gram stain confirmed by microbiology Normal [facility] Comment on above: Performed By: #### 6 06-4 ####[facility]ORATORYCLIA [id number] [address] [place] CASE MANAGEMon 07-29-[address] [facility] CBC W Auto Differential pane l (Bld)on 07-29-2021 Basophils (Bld) [#/Vol] 0.03 10*3/uL Normal <0.11 [facility] Comment on above: Order Comment: Speci men Type: BLOOD SPECIMENOrdering Facility: [facility] Address: [address] [place] [address] Performed By: #### 5 7021-8 ####[facility]ATORYCLIA [id number] [address] Basophils/100 WBC (Bld) 0.3 % Normal [facility] Comment on above: Order Comment: Speci men Type: BLOOD SPECIMENOrdering Facility: [facility] Address: [address] [place] [address] Performed By: #### 5 7021-8 ####[facility]ATORYCLIA [id number] [address] Differential cell count method Nom (Bld) Auto Normal [facility] Comment on above: Order Comment: Speci men Type: BLOOD SPECIMENOrdering Facility: [facility] Address: [address] [place] [address] Performed By: #### 5 7021-8 ####[facility]ORATORYCLIA [id number] [address] [place] Eosinophils (Bld) [#/Vol] 0.40 10*3/uL Normal <0.46 [facility] Comment on above: Order Comment: Speci men Type: BLOOD SPECIMENOrdering Facility: [facility] Address: [address] [place] [address] Performed By: #### 5 7021-8 ####[facility]ATORYCLIA [id number] [address] Eosinophils/100 WBC (Bld) 3.9 % Normal [facility] Comment on above: Order Comment: Speci men Type: BLOOD SPECIMENOrdering Facility: [facility] Address: [address] [place] [address] Performed By: #### 5 7021-8 ####[facility]ORATORYCLIA [id number] [address] Erythrocyte distribution width (RBC) [Ratio] 17.1 % High 11.5-15.0 [facility] Comment on above: Order Comment: Speci men Type: BLOOD SPECIMENOrdering Facility: [facility] Address: [address] [place] [address] Performed By: #### 5 7021-8 ####[facility]ATORYCLIA [id number] [address] Hematocrit (Bld) [Volume fraction] 32.0 % Low 39.0-51.0 [facility] Comment on above: Order Comment: Speci men Type: BLOOD SPECIMENOrdering Facility: [facility] Address: [address] [place] [address] Performed By: #### 5 7021-8 ####[facility]ATORYCLIA [id number] [address] Hemoglobin (Bld) [Mass/Vol] 9.7 g/dL Low 13.0-17.0 [facility] Comment on above: Order Comment: Speci men Type: BLOOD SPECIMENOrdering Facility: [facility] Address: [address] [place] [address] Performed By: #### 5 7021-8 ####[facility]ATORYCLIA [id number] [address] IMMATURE GRAN % 0.6 % Normal [facility] Comment on above: Order Comment: Speci men Type: BLOOD SPECIMENOrdering Facility: [facility] Address: [address] [place] [address] Performed By: #### 5 7021-8 ####[facility]ATORYCLIA [id number] [address] IMMATURE GRAN ABS 0.06 k/uL Normal <0.10 [facility] Comment on above: Order Comment: Speci men Type: BLOOD SPECIMENOrdering Facility: [facility] Address: [address] [place] [address] Performed By: #### 5 7021-8 ####[facility]ATORYCLIA [id number] [address] Lymphocytes (Bld) [#/Vol] 1.96 10*3/uL Normal 1.00-4.00 [facility] Comment on above: Order Comment: Speci men Type: BLOOD SPECIMENOrdering Facility: [facility] Address: [address] [place] [address] Performed By: #### 5 7021-8 ####[facility]ATORYCLIA [id number] [address] Lymphocytes/100 WBC (Bld) 19.0 % Normal [facility] Comment on above: Order Comment: Speci men Type: BLOOD SPECIMENOrdering Facility: [facility] Address: [address] [place] [address] Performed By: #### 5 7021-8 ####[facility]ORATORYCLIA [id number] [address] [place] MCH (RBC) [Entitic mass] 28.0 pg Normal 26.0-34.0 [facility] Comment on above: Order Comment: Speci men Type: BLOOD SPECIMENOrdering Facility: [facility] Address: [address] [place] [address] Performed By: #### 5 7021-8 ####[facility]ATORYCLIA [id number] [address] [place] MCHC (RBC) [Mass/Vol] 30.3 g/dL Low 30.5-36.0 [facility] Comment on above: Order Comment: Speci men Type: BLOOD SPECIMENOrdering Facility: [facility] Address: [address] [place] [address] Performed By: #### 5 7021-8 ####[facility]ATORYCLIA [id number] [address] [place] MCV (RBC) [Entitic vol] 92.5 fL Normal 80.0-100.0 [facility] Comment on above: Order Comment: Speci men Type: BLOOD SPECIMENOrdering Facility: [facility] Address: [facility] [place] [address] Performed By: #### 5 7021-8 ####[facility]ORATORYCLIA [id number] [place] [address] [place] Monocytes (Bld) [#/Vol] 0.53 10*3/uL Normal <0.87 [facility] Comment on above: Order Comment: Speci men Type: BLOOD SPECIMENOrdering Facility: [facility] Address: [address] [place] [address] Performed By: #### 5 7021-8 ####[facility]ATORYCLIA [id number] [address] Monocytes/100 WBC (Bld) 5.2 % Normal [facility] Comment on above: Order Comment: Speci men Type: BLOOD SPECIMENOrdering Facility: [facility] Address: [address] [place] [address] Performed By: #### 5 7021-8 ####[facility]ATORYCLIA [id number] [place] [address] [place] Neutrophils (Bld) [#/Vol] 7.31 10*3/uL Normal 1.45-7.50 [facility] Comment on above: Order Comment: Speci men Type: BLOOD SPECIMENOrdering Facility: [facility] Address: [address] [place] [address] Performed By: #### 5 7021-8 ####[facility]ATORYCLIA [id number] [address] [place] Neutrophils/100 WBC (Bld) 71.0 % Normal [facility] Comment on above: Order Comment: Speci men Type: BLOOD SPECIMENOrdering Facility: [facility] Address: [address] [place] [address] Performed By: #### 5 7021-8 ####[facility]ATORYCLIA [id number] [address] [place] Nucleated RBC (Bld) [#/Vol] 10*3/uL Normal <0.01 [facility] Comment on above: Order Comment: Speci men Type: BLOOD SPECIMENOrdering Facility: [facility] Address: [address] [place] [address] Performed By: #### 5 7021-8 ####[facility]ATORYCLIA [id number] [address] [place] Nucleated RBC/100 WBC (Bld) [Ratio] 0.0 /[address] [facility] Comment on above: Order Comment: Speci men Type: BLOOD SPECIMENOrdering Facility: [facility] Address: [address] [place] [address] Performed By: #### 5 7021-8 ####[facility]ATORYCLIA [id number] [address] Platelet mean volume (Bld) [Entitic vol] 11.2 fL Normal 9.0-12.7 [facility] Comment on above: Order Comment: Speci men Type: BLOOD SPECIMENOrdering Facility: [facility] Address: [address] [place] [address] Performed By: #### 5 7021-8 ####[facility]ATORYCLIA [id number] [address] [place] Platelets (Bld) [#/Vol] 276 10*3/uL Normal 150-400 [facility] Comment on above: Order Comment: Speci men Type: BLOOD SPECIMENOrdering Facility: [facility] Address: [address] [place] [address] Performed By: #### 5 7021-8 ####[facility]ATORYCLIA [id number] [address] [place] RBC (Bld) [#/Vol] 3.46 10*6/uL Low 4.20-6.00 [facility] Comment on above: Order Comment: Speci men Type: BLOOD SPECIMENOrdering Facility: [facility] Address: [address] [place] [address] Performed By: #### 5 7021-8 ####[facility]ATORYCLIA [id number] [address] STATES OF [facility] WBC (Bld) [#/Vol] 10.29 10*3/uL Normal 3.70-11.00 [facility] Comment on above: Order Comment: Speci men Type: BLOOD SPECIMENOrdering Facility: [facility] Address: [address] [place] [address] Performed By: #### 5 7021-8 ####[facility]ATORYCLIA [id number] [address] NURSING PROGon 07-29-[address] [facility] THERAPY NTon 07-29-[address] [facility] aPTT PPPon 07-29-2021 aPTT Coag (PPP) [Time] 59.2 s High 23.0-32.4 [facility] Comment on above: Order Comment: Speci men Type: BLOOD SPECIMENOrdering Facility: [facility] Address: [address] [place] [address] Performed By: #### 1 4979-9 ####[facility]ORYCLIA [id number] [address] [place] ALLIED HEALTHon 07-28-[address] [facility] Basic metabolic 2000 panelon 07-28-2021 Anion gap [Moles/Vol] 7 mmol/L Low 9-18 [facility] Comment on above: Order Comment: Speci men Type: BLOOD SPECIMENOrdering Facility: [facility] Address: [address] [place] [address] Performed By: #### 1 4338-8, 77061-5, 2777-1, 73920-9 ####[facility]ATORYCLIA [id number] [address] STATES [facility] Calcium [Mass/Vol] 9.0 mg/dL Normal 8.5-10.2 [facility] Comment on above: Order Comment: Speci men Type: BLOOD SPECIMENOrdering Facility: [facility] Address: [address] [place] [address] Performed By: #### 1 4338-8, 33301-9, 2777-1, 84743-7 ####[facility]ATORYCLIA [id number] [place] [address] [place] Chloride [Moles/Vol] 94 mmol/L Low 97-105 [facility] Comment on above: Order Comment: Speci men Type: BLOOD SPECIMENOrdering Facility: [facility] Address: [address] [place] [address] Performed By: #### 1 4338-8, 13407-4, 2777-1, 73801-8 ####[facility]ATORYCLIA [id number] [address] STATES OF [facility] CO2 [Moles/Vol] 31 mmol/L High 22-30 [facility] Comment on above: Order Comment: Speci men Type: BLOOD SPECIMENOrdering Facility: [facility] Address: [address] [place] [address] Performed By: #### 1 4338-8, 46769-7, 2777-1, 92304-3 ####[facility]ATORYCLIA [id number] [place] [address] [place] Creatinine [Mass/Vol] 0.75 mg/dL Normal 0.73-1.22 [facility] Comment on above: Order Comment: Speci men Type: BLOOD SPECIMENOrdering Facility: [facility] Address: [address] [place] [address] Performed By: #### 1 4338-8, 61929-9, 2777-1, 89515-4 ####[facility]ATORYCLIA [id number] [address] STATES OF [facility] ESTIMATED GLOMERULAR FILTRATION RATE 98 mL/min/1.73m??? Normal >=60 [facility] Comment on above: Order Comment: Shira feldman Type: BLOOD SPECIMENOrdering Facility: [facility] Address: [address] [place], [place] [address] Result Comment: Luzmaria mated Glomerular Filtration Rate [...] actual GFR. Performed By: #### 1 4338-8, 25105-3, 2777-1, 87540-8 ####[facility] [id number] [place] [address] [place] Glucose [Mass/Vol] 122 mg/dL High 74-99 [facility] Comment on above: Order Comment: Shira feldman Type: BLOOD SPECIMENOrdering Facility: [facility] Address: [address] [place] [address] Result Comment: The [place] [employer] (ADA) provides guidance for cutoff [...] Standards of Medical Care in Diabetes 2016, [place] [employer]. Diabetes Care. 2016.39(Suppl 1). Performed By: #### 1 4338-8, 55956-5, 2777-1, 42172-1 ####[facility]CL[facility] [id number] [place] [id number] [place] Potassium [Moles/Vol] 4.0 mmol/L Normal 3.7-5.1 [facility] Comment on above: Order Comment: Shira men Type: BLOOD SPECIMENOrdering Facility: [facility] Address: [address] [place] [address] Performed By: #### 1 4338-8, 77272-1, 2777-, 90415-2 ####[facility]ATORYCLIA [id number] [address] STATES OF [facility] Sodium [Moles/Vol] 132 mmol/L Low 136-144 [facility] Comment on above: Order Comment: Speci men Type: BLOOD SPECIMENOrdering Facility: [facility] Address: [address] [place] [address] Performed By: #### 1 4338-8, , 2777-, 52469-8 ####[facility]ATORYCLIA [id number] [address] [place] Urea nitrogen [Mass/Vol] 34 mg/dL High 01-28 [facility] Comment on above: Order Comment: Speci men Type: BLOOD SPECIMENOrdering Facility: [facility] Address: [address] [place] [address] Performed By: #### 1 4338-8, 29143-5, 2777-, 37183-9 ####[facility]ORYCLIA [id number] [address] [place] CBC W Auto Differential pane l (Bld)on 07-28-2021 Basophils (Bld) [#/Vol] 0.04 10*3/uL Normal <0.11 [facility] Comment on above: Order Comment: Speci men Type: BLOOD SPECIMENOrdering Facility: [facility] Address: [address] [place] [address] Performed By: #### 5 7021-8 ####[facility]ATORYCLIA [id number] [address] STATES OF [facility] Basophils/100 WBC (Bld) 0.5 % Normal [facility] Comment on above: Order Comment: Speci men Type: BLOOD SPECIMENOrdering Facility: [facility] Address: [address] [place] [address] Performed By: #### 5 7021-8 ####[facility]ATORYCLIA [id number] [address] Differential cell count method Nom (Bld) Auto Normal [facility] Comment on above: Order Comment: Speci men Type: BLOOD SPECIMENOrdering Facility: [facility] Address: [address] [place] [address] Performed By: #### 5 7021-8 ####[facility]ATORYCLIA [id number] [address] Eosinophils (Bld) [#/Vol] 0.30 10*3/uL Normal <0.46 [facility] Comment on above: Order Comment: Speci men Type: BLOOD SPECIMENOrdering Facility: [facility] Address: [address] [place] [address] Performed By: #### 5 7021-8 ####[facility] LABORATORYCLIA [id number] [address] Eosinophils/100 WBC (Bld) 3.4 % Normal [facility] Comment on above: Order Comment: Speci men Type: BLOOD SPECIMENOrdering Facility: [facility] Address: [address] [place] [address] Performed By: #### 5 7021-8 ####[facility] LABORATORYCLIA [id number] [address] Erythrocyte distribution width (RBC) [Ratio] 16.9 % High 11.5-15.0 [facility] Comment on above: Order Comment: Speci men Type: BLOOD SPECIMENOrdering Facility: [facility] Address: [address] [place] [address] Performed By: #### 5 7021-8 ####[facility]ATORYCLIA [id number] [address] Hematocrit (Bld) [Volume fraction] 30.3 % Low 39.0-51.0 [facility] Comment on above: Order Comment: Speci men Type: BLOOD SPECIMENOrdering Facility: [facility] Address: [address] [place] [address] Performed By: #### 5 7021-8 ####[facility]ATORYCLIA [id number] [address] Hemoglobin (Bld) [Mass/Vol] 9.2 g/dL Low 13.0-17.0 [facility] Comment on above: Order Comment: Speci men Type: BLOOD SPECIMENOrdering Facility: [facility] Address: [address] [place] [address] Performed By: #### 5 7021-8 ####[facility]ORYCLIA [id number] [address] IMMATURE GRAN % 0.6 % Normal [facility] Comment on above: Order Comment: Speci men Type: BLOOD SPECIMENOrdering Facility: [facility] Address: [address] [place] [address] Performed By: #### 5 7021-8 ####[facility]ORYCLIA [id number] [address] IMMATURE GRAN ABS 0.05 k/uL Normal <0.10 [facility] Comment on above: Order Comment: Speci men Type: BLOOD SPECIMENOrdering Facility: [facility] Address: [address] [place] [address] Performed By: #### 5 7021-8 ####[facility]ATORYCLIA [id number] [address] Lymphocytes (Bld) [#/Vol] 1.68 10*3/uL Normal 1.00-4.00 [facility] Comment on above: Order Comment: Speci men Type: BLOOD SPECIMENOrdering Facility: [facility] Address: [address] [place] [address] Performed By: #### 5 7021-8 ####[facility]ORYCLIA [id number] [address] Lymphocytes/100 WBC (Bld) 19.2 % Normal [facility] Comment on above: Order Comment: Speci men Type: BLOOD SPECIMENOrdering Facility: [facility] Address: [address] [place] [address] Performed By: #### 5 7021-8 ####[facility]ATORYCLIA [id number] [address] MCH (RBC) [Entitic mass] 28.4 pg Normal 26.0-34.0 [facility] Comment on above: Order Comment: Speci men Type: BLOOD SPECIMENOrdering Facility: [facility] Address: [address] [place] [address] Performed By: #### 5 7021-8 ####[facility]ATORYCLIA [id number] [address] MCHC (RBC) [Mass/Vol] 30.4 g/dL Low 30.5-36.0 [facility] Comment on above: Order Comment: Speci men Type: BLOOD SPECIMENOrdering Facility: [facility] Address: [address] [place] [address] Performed By: #### 5 7021-8 ####[facility]ORYCLIA [id number] [address] MCV (RBC) [Entitic vol] 93.5 fL Normal 80.0-100.0 [facility] Comment on above: Order Comment: Speci men Type: BLOOD SPECIMENOrdering Facility: [facility] Address: [address] [place] [address] Performed By: #### 5 7021-8 ####[facility]ORYCLIA [id number] [address] Monocytes (Bld) [#/Vol] 0.58 10*3/uL Normal <0.87 [facility] Comment on above: Order Comment: Speci men Type: BLOOD SPECIMENOrdering Facility: [facility] Address: [address] [place] [address] Performed By: #### 5 7021-8 ####[facility]CL[facility] [id number] [address] [place] Monocytes/100 WBC (Bld) 6.6 % Normal [facility] Comment on above: Order Comment: Speci men Type: BLOOD SPECIMENOrdering Facility: [facility] Address: [address] [place] [address] Performed By: #### 5 7021-8 ####[facility]ATORYCLIA [id number] [place] [address] [place] Neutrophils (Bld) [#/Vol] 6.11 10*3/uL Normal 1.45-7.50 [facility] Comment on above: Order Comment: Speci men Type: BLOOD SPECIMENOrdering Facility: [facility] Address: [address] [place] [address] Performed By: #### 5 7021-8 ####[facility]ORYCLIA [id number] [address] Neutrophils/100 WBC (Bld) 69.7 % Normal [facility] Comment on above: Order Comment: Speci men Type: BLOOD SPECIMENOrdering Facility: [facility] Address: [address] [place] [address] Performed By: #### 5 7021-8 ####[facility]ORATORYCLIA [id number] [address] [place] Nucleated RBC (Bld) [#/Vol] 10*3/uL Normal <0.01 [facility] Comment on above: Order Comment: Speci men Type: BLOOD SPECIMENOrdering Facility: [facility] Address: [address] [place] [address] Performed By: #### 5 7021-8 ####[facility]ORYCLIA [id number] [address] [place] Nucleated RBC/100 WBC (Bld) [Ratio] 0.0 /[address] [facility] Comment on above: Order Comment: Speci men Type: BLOOD SPECIMENOrdering Facility: [facility] Address: [address] Performed By: #### 5 7021-8 ####[facility]ATORYCLIA [id number] [address] STATES [facility] Platelet mean volume (Bld) [Entitic vol] 11.3 fL Normal 9.0-12.7 [facility] Comment on above: Order Comment: Speci men Type: BLOOD SPECIMENOrdering Facility: [facility] Address: [address] [place] [address] Performed By: #### 5 7021-8 ####[facility]ORYCLIA [id number] [place] [address] [place] Platelets (Bld) [#/Vol] 238 10*3/uL Normal 150-400 [facility] Comment on above: Order Comment: Speci men Type: BLOOD SPECIMENOrdering Facility: [facility] Address: [address] [place] [address] Performed By: #### 5 7021-8 ####[facility]ORYCLIA [id number] [address] [place] RBC (Bld) [#/Vol] 3.24 10*6/uL Low 4.20-6.00 [facility] Comment on above: Order Comment: Speci men Type: BLOOD SPECIMENOrdering Facility: [facility] Address: [address] [place] [address] Performed By: #### 5 7021-8 ####[facility]ATORYCLIA [id number] [address] [place] WBC (Bld) [#/Vol] 8.76 10*3/uL Normal 3.70-11.00 [facility] Comment on above: Order Comment: Speci men Type: BLOOD SPECIMENOrdering Facility: [facility] Address: [address] [place], [place] [address] Performed By: #### 5 7021-8 ####[facility]ATORYCLIA [id number] [address] [place] MRI BRAIN WO/W IVCONon 07-28 MRI BRAIN WO/W IVCON Normal [facility] Magnesium SerPl-mCncon 07-28 Magnesium [Mass/Vol] 2.5 mg/dL High 1.7-2.3 [facility] Comment on above: Order Comment: Speci men Type: BLOOD SPECIMENOrdering Facility: [facility] Address: [address] [place] [address] Performed By: #### 1 4338-8, 81252-6, 277-1, 08117-3 ####[facility]ATORYCLIA [id number] [address] OF [facility] NURSING PROGon 07-28-[address] [facility] NURSING PROG Normal [facility] Phosphate SerPl-mCncon 07-28 Phosphate [Mass/Vol] 2.8 mg/dL Normal 2.7-4.8 [facility] Comment on above: Order Comment: Speci men Type: BLOOD SPECIMENOrdering Facility: [facility] Address: [address] [place] [address] Performed By: #### 1 4338-8, 61906-2, 2776-05, 99349-4 ####[facility]ATORYCLIA [id number] [address] [place] Prealbumin [Mass/Vol]on 07-06 Prealbumin Nephelometry [Mass/Vol] 25 mg/dL Normal 17-36 [facility] Comment on above: Order Comment: Speci men Type: BLOOD SPECIMENOrdering Facility: [facility] Address: [facility] [place] [address] Performed By: #### 1 4338-8, 50207-8, 277-, 51980-8 ####[facility]ATORYCLIA [id number] [address] [place] aPTT PPPon 07-28-2021 aPTT Coag (PPP) [Time] 53.0 s High 23.0-32.4 [facility] Comment on above: Order Comment: Speci men Type: BLOOD SPECIMENOrdering Facility: [facility] Address: [address] [place] [address] Performed By: #### 1 4979-9 ####[facility]ORYCLIA [id number] [address] [place] aPTT Coag (PPP) [Time] 57.2 s High 23.0-32.4 [facility] Comment on above: Order Comment: Speci men Type: BLOOD SPECIMENOrdering Facility: [facility] Address: [address] [place] [address] Performed By: #### 1 4979-9 ####[facility]ORYCLIA [id number] [address] Bacteria CSF Culton 07-28-19 Bacteria identified Cx Nom (CSF) CULTURE, CSF: No growth 14 days GRAM STAIN: No organisms seen Rare Polymorphonuclear leukocytes Rare Red Blood Cells Gram stain performed on cytospun specimen. Normal [facility] Comment on above: Performed By: #### 6 06-4 ####[facility]ATORYCLIA [id number] [address] Bacteria Spec Resp Culton Bacteria identified Respiratory culture Nom (Unsp spec) CULTURE, RESPIRATORY: Rare Normal respiratory chris present GRAM STAIN: No organisms seen Rare Polymorphonuclear leukocytes Rare Epithelial cells Normal [facility] Comment on above: Performed By: #### 3 2355-0 ####[facility]ORYCLIA [id number] [address] CASE MANAGEMon 07-27-[address] [facility] CBC W Auto Differential pane l (Bld)on 07-27-2021 Basophils (Bld) [#/Vol] 0.04 10*3/uL Normal <0.11 [facility] Comment on above: Order Comment: Speci men Type: BLOOD SPECIMENOrdering Facility: [facility] Address: [address] [place] [address] Performed By: #### 5 7021-8 ####[facility]CL[facility] [id number] [address] [place] Basophils/100 WBC (Bld) 0.4 % Normal [facility] Comment on above: Order Comment: Speci men Type: BLOOD SPECIMENOrdering Facility: [facility] Address: [address] [place] [address] Performed By: #### 5 7021-8 ####[facility]ORYCLIA [id number] [address] Differential cell count method Nom (Bld) Auto Normal [facility] Comment on above: Order Comment: Speci men Type: BLOOD SPECIMENOrdering Facility: [facility] Address: [address] [place] [address] Performed By: #### 5 7021-8 ####[facility]ORYCLIA [id number] [address] [place] Eosinophils (Bld) [#/Vol] 0.50 10*3/uL High <0.46 [facility] Comment on above: Order Comment: Speci men Type: BLOOD SPECIMENOrdering Facility: [facility] Address: [address] [place] [address] Performed By: #### 5 7021-8 ####[facility]ORYCLIA [id number] [address] [place] Eosinophils/100 WBC (Bld) 5.2 % Normal [facility] Comment on above: Order Comment: Speci men Type: BLOOD SPECIMENOrdering Facility: [facility] Address: [address] [place] [address] Performed By: #### 5 7021-8 ####[facility]ORYCLIA [id number] [address] Erythrocyte distribution width (RBC) [Ratio] 16.8 % High 11.5-15.0 [facility] Comment on above: Order Comment: Speci men Type: BLOOD SPECIMENOrdering Facility: [facility] Address: [address] [place] [address] Performed By: #### 5 7021-8 ####[facility]ORYCLIA [id number] [address] Hematocrit (Bld) [Volume fraction] 29.8 % Low 39.0-51.0 [facility] Comment on above: Order Comment: Speci men Type: BLOOD SPECIMENOrdering Facility: [facility] Address: [address] [place] [address] Performed By: #### 5 7021-8 ####[facility]ORYCLIA [id number] [address] Hemoglobin (Bld) [Mass/Vol] 9.0 g/dL Low 13.0-17.0 [facility] Comment on above: Order Comment: Speci men Type: BLOOD SPECIMENOrdering Facility: [facility] Address: [address] [place] [address] Performed By: #### 5 7021-8 ####[facility]ORYCLIA [id number] [address] IMMATURE GRAN % 0.6 % Normal [facility] Comment on above: Order Comment: Speci men Type: BLOOD SPECIMENOrdering Facility: [facility] Address: [address] [place] [address] Performed By: #### 5 7021-8 ####[facility]ORYCLIA [id number] [address] IMMATURE GRAN ABS 0.06 k/uL Normal <0.10 [facility] Comment on above: Order Comment: Speci men Type: BLOOD SPECIMENOrdering Facility: [facility] Address: [address] [place] [address] Performed By: #### 5 7021-8 ####[facility]ORYCLIA [id number] [address] Lymphocytes (Bld) [#/Vol] 1.73 10*3/uL Normal 1.00-4.00 [facility] Comment on above: Order Comment: Speci men Type: BLOOD SPECIMENOrdering Facility: [facility] Address: [address] [place] [address] Performed By: #### 5 7021-8 ####[facility]ORYCLIA [id number] [address] Lymphocytes/100 WBC (Bld) 17.9 % Normal [facility] Comment on above: Order Comment: Speci men Type: BLOOD SPECIMENOrdering Facility: [facility] Address: [address] [place] [address] Performed By: #### 5 7021-8 ####[facility]ORYCLIA [id number] [address] MCH (RBC) [Entitic mass] 28.1 pg Normal 26.0-34.0 [facility] Comment on above: Order Comment: Speci men Type: BLOOD SPECIMENOrdering Facility: [facility] Address: [address] [place] [address] Performed By: #### 5 7021-8 ####[facility]ATORYCLIA [id number] [address] STATES OF [facility] MCHC (RBC) [Mass/Vol] 30.2 g/dL Low 30.5-36.0 [facility] Comment on above: Order Comment: Speci men Type: BLOOD SPECIMENOrdering Facility: [facility] Address: [address] [place] [address] Performed By: #### 5 7021-8 ####[facility]ORYCLIA [id number] [address] STATES OF [facility] MCV (RBC) [Entitic vol] 93.1 fL Normal 80.0-100.0 [facility] Comment on above: Order Comment: Speci men Type: BLOOD SPECIMENOrdering Facility: [facility] Address: [address] [place] [address] Performed By: #### 5 7021-8 ####[facility]ATORYCLIA [id number] [place] [address] [place] Monocytes (Bld) [#/Vol] 0.59 10*3/uL Normal <0.87 [facility] Comment on above: Order Comment: Speci men Type: BLOOD SPECIMENOrdering Facility: [facility] Address: [address] [place] [address] Performed By: #### 5 7021-8 ####[facility]ORYCLIA [id number] [address] [place] Monocytes/100 WBC (Bld) 6.1 % Normal [facility] Comment on above: Order Comment: Speci men Type: BLOOD SPECIMENOrdering Facility: [facility] Address: [address] [place] [address] Performed By: #### 5 7021-8 ####[facility]ORYCLIA [id number] [address] [place] Neutrophils (Bld) [#/Vol] 6.75 10*3/uL Normal 1.45-7.50 [facility] Comment on above: Order Comment: Speci men Type: BLOOD SPECIMENOrdering Facility: [facility] Address: [address] [place] [address] Performed By: #### 5 7021-8 ####[facility]ORYCLIA [id number] [address] [place] Neutrophils/100 WBC (Bld) 69.8 % Normal [facility] Comment on above: Order Comment: Speci men Type: BLOOD SPECIMENOrdering Facility: [facility] Address: [address] [place] [address] Performed By: #### 5 7021-8 ####[facility]ORYCLIA [id number] [place] [address] [place] Nucleated RBC (Bld) [#/Vol] 10*3/uL Normal <0.01 [facility] Comment on above: Order Comment: Speci men Type: BLOOD SPECIMENOrdering Facility: [facility] Address: [address] [place] [address] Performed By: #### 5 7021-8 ####[facility]ORYCLIA [id number] [address] [place] Nucleated RBC/100 WBC (Bld) [Ratio] 0.0 /[address] [facility] Comment on above: Order Comment: Speci men Type: BLOOD SPECIMENOrdering Facility: [facility] Address: [address] [place] [address] Performed By: #### 5 7021-8 ####[facility]ORYCLIA [id number] [address] [place] Platelet mean volume (Bld) [Entitic vol] 11.3 fL Normal 9.0-12.7 [facility] Comment on above: Order Comment: Speci men Type: BLOOD SPECIMENOrdering Facility: [facility] Address: [address] [place] [address] Performed By: #### 5 7021-8 ####[facility]ORYCLIA [id number] [address] [place] Platelets (Bld) [#/Vol] 227 10*3/uL Normal 150-400 [facility] Comment on above: Order Comment: Speci men Type: BLOOD SPECIMENOrdering Facility: [facility] Address: [address] [place] [address] Performed By: #### 5 7021-8 ####[facility]ORYCLIA [id number] [address] [place] RBC (Bld) [#/Vol] 3.20 10*6/uL Low 4.20-6.00 [facility] Comment on above: Order Comment: Speci men Type: BLOOD SPECIMENOrdering Facility: [facility] Address: [address] [place] [address] Performed By: #### 5 7021-8 ####[facility]ORYCLIA [id number] [address] [place] WBC (Bld) [#/Vol] 9.67 10*3/uL Normal 3.70-11.00 [facility] Comment on above: Order Comment: Speci men Type: BLOOD SPECIMENOrdering Facility: [facility] Address: [address] [place] [address] Performed By: #### 5 7021-8 ####[facility]ORYCLIA [id number] [address] [place] CONSULT PROGon 07-27-[address] [facility] CSF MANUAL DIFFon 07-27-2021 DIF TTL, CSF [address] [facility] Comment on above: Order Comment: Speci men Type: CEREBROSPINAL FLUIDOrdering Facility: [facility] Address: [address] [place] [address] Performed By: #### L [id number], 15043-9, [id number] ####[facility]ORYCLIA [id number] [place] [address] [place] LYMPH%, CSF 75 % Normal 50-90 [facility] Comment on above: Order Comment: Speci men Type: CEREBROSPINAL FLUIDOrdering Facility: [facility] Address: [address] [place] [address] Performed By: #### L [id number], 81131-6, [id number] ####[facility]ATORYCLIA [id number] [place] [address] [place] MONO%, CSF 22 % Normal 10-50 [facility] Comment on above: Order Comment: Speci men Type: CEREBROSPINAL FLUIDOrdering Facility: [facility] Address: [address] [place] [address] Performed By: #### L RP1691, 36049-3, [id number] ####[facility]ORYCLIA [id number] [address] [place] NEUT%, CSF 2 % Normal 0-3 [facility] Comment on above: Order Comment: Speci men Type: CEREBROSPINAL FLUIDOrdering Facility: [facility] Address: [address] [place] [address] Performed By: #### L [id number], 99915-3, [id number] ####[facility]ORYCLIA [id number] [place] [address] [place] OTHER CL%, CSF 1 % Normal [facility] Comment on above: Order Comment: Speci men Type: CEREBROSPINAL FLUIDOrdering Facility: [facility] Address: [address] [place] [address] Result Comment: Path ologist review of microscopy results to follow Performed By: #### L [id number], 18985-4, [id number] ####[facility]ATORYCLIA [id number] [place] [address] [place] CSF PATHOLOGIST INTERP (LAB REFLEX ORDER-NO BILL)on 07-27-2021 CSF STAFF REVIEW Negative Normal [facility] Comment on above: Order Comment: Speci men Type: CEREBROSPINAL FLUIDOrdering Facility: [facility] Address: [address] [place] [address] Performed By: #### L OB2758, 60234-1, [id number] ####[facility]ORYCLIA [id number] [address] Pathologist name Reviewed by Amador Stevens MD Normal [facility] Comment on above: Order Comment: Speci men Type: CEREBROSPINAL FLUIDOrdering Facility: [facility] Address: [address] [place] [address] Performed By: #### L [id number], 91872-9, [id number] ####[facility]ORYCLIA [id number] [address] Cell count panel (CSF)on Clarity (CSF) Clear Normal Clear [facility] Comment on above: Order Comment: Speci men Type: CEREBROSPINAL FLUIDOrdering Facility: [facility] Address: [address] [place] [address] Performed By: #### L [id number], 98711-2, [id number] ####[facility]ORYCLIA [id number] [address] [place] Clarity (Unsp spec) Not Indicated Normal Clear [facility] Comment on above: Order Comment: Speci men Type: CEREBROSPINAL FLUIDOrdering Facility: [facility] Address: [address] [place] [address] Performed By: #### L [id number], 55642-4, [id number] ####[facility]ORYCLIA [id number] [address] Color (CSF) Colorless Normal Colorless [facility] Comment on above: Order Comment: Speci men Type: CEREBROSPINAL FLUIDOrdering Facility: [facility] Address: [address] [place] [address] Performed By: #### L [id number], 42461-3, [id number] ####[facility]ORYCLIA [id number] [address] Color (Spun CSF) Not Indicated Normal Colorless [facility] Comment on above: Order Comment: Speci men Type: CEREBROSPINAL FLUIDOrdering Facility: [facility] Address: [address] [place] [address] Performed By: #### L [id number], 91260-7, [id number] ####[facility]ATORYCLIA [id number] [address] CSF TUBE NUMBER Sterile Container Normal [facility] Comment on above: Order Comment: Speci men Type: CEREBROSPINAL FLUIDOrdering Facility: [facility] Address: [address] [place] [address] Performed By: #### L [id number], 76210-6, [id number] ####[facility]ORYCLIA [id number] [address] RBC Manual cnt (CSF) [#/Vol] 39 cells/uL High 0-5 [facility] Comment on above: Order Comment: Speci men Type: CEREBROSPINAL FLUIDOrdering Facility: [facility] Address: [address] [place] [address] Performed By: #### L [id number], [id number], [id number] ####[facility]ORATORYCLIA [id number] [address] [place] WBC Manual cnt (CSF) [#/Vol] 14 cells/uL High 0-5 [facility] Comment on above: Order Comment: Speci men Type: CEREBROSPINAL FLUIDOrdering Facility: [facility] Address: [address] [place] [address] Performed By: #### L [id number], 40402-8, [id number] ####[facility]ORATORYCLIA [id number] [place] [address] [place] Glucose CSF-mCncon 2 Glucose (CSF) [Mass/Vol] 64 mg/dL Normal 40-70 [facility] Comment on above: Order Comment: Speci men Type: CEREBROSPINAL FLUIDOrdering Facility: [facility] Address: [address] [place] [address] Result Comment: Lumb ar CSF glucose values of healthy patients are approximately 60% of the plasma values and must always be compared with a concurrently measured plasma value for adequate clinical interpretation.References: 1. Glucose HK (GLUC3) [package insert V 12.0 Lebanese]. [employer], [place], [place]. September 2015. 2. Michelle Moore, Loki, H. (2015). Chapter 7: Glucose and Lactate. Marianela Alcocer al.(eds.), Cerebrospinal Fluid in Clinical Neurology. Bee: [employer]. Performed By: #### 2 342-4, 2880-3 ####[facility]ATORYCLIA [id number] [place] [address] [place] NUTRITIONon 07-27-[address] [facility] Prot CSF-mCncon 07-27-2021 Protein (CSF) [Mass/Vol] 58 mg/dL High 15-45 [facility] Comment on above: Order Comment: Speci men Type: CEREBROSPINAL FLUIDOrdering Facility: [facility] Address: [address] [place] [address] Performed By: #### 2 342-4, 2880-3 ####[facility]ATORYCLIA [id number] [address] [place] aPTT PPPon 07-27-2021 aPTT Coag (PPP) [Time] 68.4 s High 23.0-32.4 [facility] Comment on above: Order Comment: Speci men Type: BLOOD SPECIMENOrdering Facility: [facility] Address: [address] [place] [address] Performed By: #### 1 4979-9 ####[facility]ATORYCLIA [id number] [address] aPTT Coag (PPP) [Time] 51.3 s High 23.0-32.4 [facility] Comment on above: Order Comment: Speci men Type: BLOOD SPECIMENOrdering Facility: [facility] Address: [address] [place] [address] Performed By: #### 1 4979-9 ####[facility]ATORYCLIA [id number] [address] ALLIED HEALTHon 07-26-2021 ALLIED HEALTH HNO ID: [id number] Author: Stephanie Maldonado, cryptologist Service: Radiology Author Type: Corporate Responsibility Officer Type: Allied Health Filed: 07/26/2021 4:10 PM Note Text: Spoke with nurse. Pt getting new EVD today. Try tomorrow. Normal [facility] Bacteria CSF Culton 07-27-19 Bacteria identified Cx Nom (CSF) Abnormal [facility] Comment on above: Performed By: #### 6 06-4 ####[facility]ATORYCLIA [id number] [address] STATES OF [facility] Basic metabolic 2000 panelon 07-26-2021 Anion gap [Moles/Vol] 6 mmol/L Low 9-18 [facility] Comment on above: Order Comment: Speci men Type: BLOOD SPECIMENOrdering Facility: [facility] Address: [address] [place] [address] Performed By: #### 2 4321-2 ####[facility]ORYCLIA [id number] [address] Calcium [Mass/Vol] 9.2 mg/dL Normal 8.5-10.2 [facility] Comment on above: Order Comment: Speci men Type: BLOOD SPECIMENOrdering Facility: [facility] Address: [address] [place] [address] Performed By: #### 2 4321-2 ####[facility]ATORYCLIA [id number] [place] [address] [place] Chloride [Moles/Vol] 99 mmol/L Normal 97-105 [facility] Comment on above: Order Comment: Speci men Type: BLOOD SPECIMENOrdering Facility: [facility] Address: [address] [place] [address] Performed By: #### 2 4321-2 ####[facility]ATORYCLIA [id number] [place] [address] [place] CO2 [Moles/Vol] 32 mmol/L High 22-30 [facility] Comment on above: Order Comment: Speci men Type: BLOOD SPECIMENOrdering Facility: [facility] Address: [address] [place] [address] Performed By: #### 2 4321-2 ####[facility]ATORYCLIA [id number] [address] [place] Creatinine [Mass/Vol] 0.74 mg/dL Normal 0.73-1.22 [facility] Comment on above: Order Comment: Speci men Type: BLOOD SPECIMENOrdering Facility: [facility] Address: [address] [place] [address] Performed By: #### 2 4321-2 ####[facility]ATORYCLIA [id number] [address] [place] ESTIMATED GLOMERULAR FILTRATION RATE 98 mL/min/1.73m??? Normal >=60 [facility] Comment on above: Order Comment: Speci men Type: BLOOD SPECIMENOrdering Facility: [facility] Address: [address] [place] [address] Result Comment: Luzmaria mated Glomerular Filtration Rate [...] GFR. Performed By: #### 2 4321-2 ####[facility]ORYCLIA [id number] [place] [address] [place] Glucose [Mass/Vol] 126 mg/dL High 74-99 [facility] Comment on above: Order Comment: Speci men Type: BLOOD SPECIMENOrdering Facility: [facility] Address: [address] [place], [place] [address] Result Comment: The [place] Diabetes Association (ADA) provides guidance for cutoff [...] Standards of Medical Care in Diabetes 2016, [place] Diabetes Association. Diabetes Care. 2016.39(Suppl 1). Performed By: #### 2 4321-2 ####[facility]ATORYCLIA [id number] [place] [address] [place] Potassium [Moles/Vol] 4.2 mmol/L Normal 3.7-5.1 [facility] Comment on above: Order Comment: Speci men Type: BLOOD SPECIMENOrdering Facility: [facility] Address: [address] [place] [id number] Performed By: #### 2 4321-2 ####[facility]ATORYCLIA [id number] [place] [address] [place] Sodium [Moles/Vol] 137 mmol/L Normal 136-144 [facility] Comment on above: Order Comment: Speci men Type: BLOOD SPECIMENOrdering Facility: [facility] Address: [address] [place] [address] Performed By: #### 2 4321-2 ####[facility]ATORYCLIA [id number] [address] STATES [facility] Urea nitrogen [Mass/Vol] 36 mg/dL High 9-24 [facility] Comment on above: Order Comment: Speci men Type: BLOOD SPECIMENOrdering Facility: [facility] Address: [address] [place] [address] Performed By: #### 2 4321-2 ####[facility]ATORYCLIA [id number] [address] [place] CBC W Auto Differential pane l (Bld)on 07-26-2021 Basophils (Bld) [#/Vol] 0.04 10*3/uL Normal <0.11 [facility] Comment on above: Order Comment: Speci men Type: BLOOD SPECIMENOrdering Facility: [facility] Address: [address] [place] [address] Performed By: #### 5 7021-8 ####[facility]ORYCLIA [id number] [address] [place] Basophils/100 WBC (Bld) 0.4 % Normal [facility] Comment on above: Order Comment: Speci men Type: BLOOD SPECIMENOrdering Facility: [facility] Address: [address] [place] [address] Performed By: #### 5 7021-8 ####[facility]ATORYCLIA [id number] [address] STATES [facility] Differential cell count method Nom (Bld) Auto Normal [facility] Comment on above: Order Comment: Speci men Type: BLOOD SPECIMENOrdering Facility: [facility] Address: [address] [place] [address] Performed By: #### 5 7021-8 ####[facility]ATORYCLIA [id number] [place] [address] [place] Eosinophils (Bld) [#/Vol] 0.63 10*3/uL High <0.46 [facility] Comment on above: Order Comment: Speci men Type: BLOOD SPECIMENOrdering Facility: [facility] Address: [address] [place] [address] Performed By: #### 5 7021-8 ####[facility]ATORYCLIA [id number] [address] STATES [facility] Eosinophils/100 WBC (Bld) 5.8 % Normal [facility] Comment on above: Order Comment: Speci men Type: BLOOD SPECIMENOrdering Facility: [facility] Address: [address] [place] [address] Performed By: #### 5 7021-8 ####[facility]ATORYCLIA [id number] [address] [place] Erythrocyte distribution width (RBC) [Ratio] 16.8 % High 11.5-15.0 [facility] Comment on above: Order Comment: Speci men Type: BLOOD SPECIMENOrdering Facility: [facility] Address: [address] [place] [address] Performed By: #### 5 7021-8 ####[facility]ATORYCLIA [id number] [address] STATES OF [facility] Hematocrit (Bld) [Volume fraction] 31.2 % Low 39.0-51.0 [facility] Comment on above: Order Comment: Speci men Type: BLOOD SPECIMENOrdering Facility: [facility] Address: [address] [place] [address] Performed By: #### 5 7021-8 ####[facility]ATORYCLIA [id number] [address] [place] Hemoglobin (Bld) [Mass/Vol] 9.1 g/dL Low 13.0-17.0 [facility] Comment on above: Order Comment: Speci men Type: BLOOD SPECIMENOrdering Facility: [facility] Address: [address] [place] [address] Performed By: #### 5 7021-8 ####[facility]ATORYCLIA [id number] [address] IMMATURE GRAN % 0.6 % Normal [facility] Comment on above: Order Comment: Speci men Type: BLOOD SPECIMENOrdering Facility: [facility] Address: [address] [place] [address] Performed By: #### 5 7021-8 ####[facility]ATORYCLIA [id number] [address] IMMATURE GRAN ABS 0.07 k/uL Normal <0.10 [facility] Comment on above: Order Comment: Speci men Type: BLOOD SPECIMENOrdering Facility: [facility] Address: [address] [place] [address] Performed By: #### 5 7021-8 ####[facility]ATORYCLIA [id number] [address] STATES [facility] Lymphocytes (Bld) [#/Vol] 2.16 10*3/uL Normal 1.00-4.00 [facility] Comment on above: Order Comment: Speci men Type: BLOOD SPECIMENOrdering Facility: [facility] Address: [address] [place] [address] Performed By: #### 5 7021-8 ####[facility]ATORYCLIA [id number] [address] Lymphocytes/100 WBC (Bld) 20.0 % Normal [facility] Comment on above: Order Comment: Speci men Type: BLOOD SPECIMENOrdering Facility: [facility] Address: [address] [place] [address] Performed By: #### 5 7021-8 ####[facility]ATORYCLIA [id number] [address] STATES [facility] MCH (RBC) [Entitic mass] 27.7 pg Normal 26.0-34.0 [facility] Comment on above: Order Comment: Speci men Type: BLOOD SPECIMENOrdering Facility: [facility] Address: [address] [place] [address] Performed By: #### 5 7021-8 ####[facility]ORYCLIA [id number] [address] STATES [facility] MCHC (RBC) [Mass/Vol] 29.2 g/dL Low 30.5-36.0 [facility] Comment on above: Order Comment: Speci men Type: BLOOD SPECIMENOrdering Facility: [facility] Address: [address] [place] [address] Performed By: #### 5 7021-8 ####[facility]ORYCLIA [id number] [address] [place] MCV (RBC) [Entitic vol] 95.1 fL Normal 80.0-100.0 [facility] Comment on above: Order Comment: Speci men Type: BLOOD SPECIMENOrdering Facility: [facility] Address: [address] [place] [address] Performed By: #### 5 7021-8 ####[facility]ATORYCLIA [id number] [address] STATES OF [facility] Monocytes (Bld) [#/Vol] 0.63 10*3/uL Normal <0.87 [facility] Comment on above: Order Comment: Speci men Type: BLOOD SPECIMENOrdering Facility: [facility] Address: [address] [place] [address] Performed By: #### 5 7021-8 ####[facility]ORYCLIA [id number] [address] Monocytes/100 WBC (Bld) 5.8 % Normal [facility] Comment on above: Order Comment: Speci men Type: BLOOD SPECIMENOrdering Facility: [facility] Address: [address] [place] [address] Performed By: #### 5 7021-8 ####[facility]ORYCLIA [id number] [address] [place] Neutrophils (Bld) [#/Vol] 7.25 10*3/uL Normal 1.45-7.50 [facility] Comment on above: Order Comment: Speci men Type: BLOOD SPECIMENOrdering Facility: [facility] Address: [address] [place] [address] Performed By: #### 5 7021-8 ####[facility]ATORYCLIA [id number] [address] Neutrophils/100 WBC (Bld) 67.4 % Normal [facility] Comment on above: Order Comment: Speci men Type: BLOOD SPECIMENOrdering Facility: [facility] Address: [address] [place] [address] Performed By: #### 5 7021-8 ####[facility]ATORYCLIA [id number] [address] [place] Nucleated RBC (Bld) [#/Vol] 10*3/uL Normal <0.01 [facility] Comment on above: Order Comment: Speci men Type: BLOOD SPECIMENOrdering Facility: [facility] Address: [address] [place] [address] Performed By: #### 5 7021-8 ####[facility]ATORYCLIA [id number] [address] Nucleated RBC/100 WBC (Bld) [Ratio] 0.0 /[address] [facility] Comment on above: Order Comment: Speci men Type: BLOOD SPECIMENOrdering Facility: [facility] Address: [address] [place] [address] Performed By: #### 5 7021-8 ####[facility]ATORYCLIA [id number] [address] [place] Platelet mean volume (Bld) [Entitic vol] 11.2 fL Normal 9.0-12.7 [facility] Comment on above: Order Comment: Speci men Type: BLOOD SPECIMENOrdering Facility: [facility] Address: [address] [place] [address] Performed By: #### 5 7021-8 ####[facility]ATORYCLIA [id number] [address] STATES OF [facility] Platelets (Bld) [#/Vol] 245 10*3/uL Normal 150-400 [facility] Comment on above: Order Comment: Speci men Type: BLOOD SPECIMENOrdering Facility: [facility] Address: [address] [place] [address] Performed By: #### 5 7021-8 ####[facility]ATORYCLIA [id number] [place] [address] [place] RBC (Bld) [#/Vol] 3.28 10*6/uL Low 4.20-6.00 [facility] Comment on above: Order Comment: Speci men Type: BLOOD SPECIMENOrdering Facility: [facility] Address: [address] [place] [address] Performed By: #### 5 7021-8 ####[facility]ATORYCLIA [id number] [address] STATES OF [facility] WBC (Bld) [#/Vol] 10.78 10*3/uL Normal 3.70-11.00 [facility] Comment on above: Order Comment: Speci men Type: BLOOD SPECIMENOrdering Facility: [facility] Address: [address] [place] [address] Performed By: #### 5 7021-8 ####[facility]ATORYCLIA [id number] [address] STATES OF [facility] CSF MANUAL DIFFon 07-26-2021 DIF TTL, CSF [address] [facility] Comment on above: Order Comment: Speci men Type: CEREBROSPINAL FLUIDOrdering Facility: [facility] Address: [address] [place] [address] Performed By: #### 3 4563-7, [id number], [id number] ####[facility]ATORYCLIA [id number] [address] [place] LYMPH%, CSF 26 % Low 50-90 [facility] Comment on above: Order Comment: Speci men Type: CEREBROSPINAL FLUIDOrdering Facility: [facility] Address: [address] [address] Performed By: #### 3 4563-7, [id number], [id number] ####[facility]ORATORYCLIA [id number] [place] [address] [place] MACRO%, CSF 10 % High <1 [facility] Comment on above: Order Comment: Speci men Type: CEREBROSPINAL FLUIDOrdering Facility: [facility] Address: [address] [place] [address] Performed By: #### 3 4563-7, [id number], [id number] ####[facility]ORATORYCLIA [id number] [place] [address] [place] MONO%, CSF 20 % Normal 10-50 [facility] Comment on above: Order Comment: Speci men Type: CEREBROSPINAL FLUIDOrdering Facility: [facility] Address: [address] [place] [address] Performed By: #### 3 4563-7, [id number], [id number] ####[facility]ATORYCLIA [id number] [place] [address] [place] NEUT%, CSF 40 % High 0-3 [facility] Comment on above: Order Comment: Speci men Type: CEREBROSPINAL FLUIDOrdering Facility: [facility] Address: [address] [place] [address] Performed By: #### 3 4563-7, [id number], [id number] ####[facility]ATORYCLIA [id number] [address] [place] OTHER CL%, CSF 2 % Normal [facility] Comment on above: Order Comment: Speci men Type: CEREBROSPINAL FLUIDOrdering Facility: [facility] Address: [address] [place] [address] Result Comment: Path review to follow. Performed By: #### 3 4563-7, [id number], [id number] ####[facility]ORATORYCLIA [id number] [place] [address] [place] REAC LYMPH %, CSF 2 % Normal [facility] Comment on above: Order Comment: Speci men Type: CEREBROSPINAL FLUIDOrdering Facility: [facility] Address: [address] [place] [address] Performed By: #### 3 4563-7, [id number], [id number] ####[facility]ATORYCLIA [id number] [address] [place] CSF PATHOLOGIST INTERP (LAB REFLEX ORDER-NO BILL)on 07-26-2021 CSF STAFF REVIEW Negative for maligna nt cells. Rare bacteria present, cocci in pairs and chains. Correlation with CSF cultures is recommended. Normal [facility] Comment on above: Order Comment: Speci men Type: CEREBROSPINAL FLUIDOrdering Facility: [facility] Address: [address] [place] [address] Performed By: #### 3 4563-7, [id number], [id number] ####[facility]ATORYCLIA [id number] [address] Pathologist name Reviewed by Amador Stevens MD [facility] Comment on above: Order Comment: Speci men Type: CEREBROSPINAL FLUIDOrdering Facility: [facility] Address: [address] [place] [address] Performed By: #### 3 4563-7, [id number], [id number] ####[facility]ATORYCLIA [id number] [address] Cell count panel (CSF)on Clarity (CSF) Slightly Cloudy Abnormal Clear [facility] Comment on above: Order Comment: Speci men Type: CEREBROSPINAL FLUIDOrdering Facility: [facility] Address: [address] [place] [address] Performed By: #### 3 4563-7, [id number], [id number] ####[facility]ATORYCLIA [id number] [address] [place] Clarity (Unsp spec) Clear Normal Clear [facility] Comment on above: Order Comment: Speci men Type: CEREBROSPINAL FLUIDOrdering Facility: [facility] Address: [address] [address] Performed By: #### 3 4563-7, [id number], [id number] ####[facility]ORATORYCLIA [id number] [address] Color (CSF) Colorless Normal Colorless [facility] Comment on above: Order Comment: Speci men Type: CEREBROSPINAL FLUIDOrdering Facility: [facility] Address: [facility] [address] Performed By: #### 3 4563-7, [id number], [id number] ####[facility]ATORYCLIA [id number] [address] Color (Spun CSF) Not Indicated Normal Colorless [facility] Comment on above: Order Comment: Speci men Type: CEREBROSPINAL FLUIDOrdering Facility: [facility] Address: [address] [place] [address] Performed By: #### 3 4563-7, [id number], [id number] ####[facility]ORATORYCLIA [id number] [address] CSF TUBE NUMBER Sterile Container Normal [facility] Comment on above: Order Comment: Speci men Type: CEREBROSPINAL FLUIDOrdering Facility: [facility] Address: [address] [place] [address] Performed By: #### 3 4563-7, [id number], [id number] ####[facility]ATORYCLIA [id number] [address] RBC Manual cnt (CSF) [#/Vol] 1 cells/uL Normal 0-5 [facility] Comment on above: Order Comment: Speci men Type: CEREBROSPINAL FLUIDOrdering Facility: [facility] Address: [facility] [address] [address] Performed By: #### 3 4563-7, [id number], [id number] ####[facility]ATORYCLIA [id number] [address] WBC Manual cnt (CSF) [#/Vol] 50 cells/uL High 0-5 [facility] Comment on above: Order Comment: Speci men Type: CEREBROSPINAL FLUIDOrdering Facility: [facility] Address: [address] [place] [address] Performed By: #### 3 4563-7, [id number], [id number] ####[facility]ATORYCLIA [id number] [place] [address] [place] [facility] Glucose CSF-ncon Glucose (CSF) [Mass/Vol] 64 mg/dL Normal 40-70 [facility] Comment on above: Order Comment: Speci men Type: CEREBROSPINAL FLUIDOrdering Facility: [facility] Address: [address] [place] [address] Result Comment: Lumb ar CSF glucose values of healthy patients are approximately 60% of the plasma values and must always be compared with a concurrently measured plasma value for adequate clinical interpretation.References: 1. Glucose HK (GLUC3) [package insert V 12.0 Lebanese]. [employer], [place], [place]. September 2015. 2. Michelle Moore, Loki HGarfield (2015). Chapter 7: Glucose and Lactate. F. Irina rose al.(eds.), Cerebrospinal Fluid in Clinical Neurology. Bee: [employer]. Performed By: #### 2 880-3, 2342-4 ####[facility]ORATORYCLIA [id number] [place] [address] [place] Magnesium SerPl-ncon 07-26 Magnesium [Mass/Vol] 2.3 mg/dL Normal 1.7-2.3 [facility] Comment on above: Order Comment: Speci men Type: BLOOD SPECIMENOrdering Facility: [facility] Address: [address] [place] [address] Performed By: #### 1 9123-9, 2777-1, 3016-3 ####[facility]ATORYCLIA [id number] [place] [address] [place] NURSING PROGon 07-26-[address] [facility] Phosphate SerPl-ncon 07-26 Phosphate [Mass/Vol] 2.6 mg/dL Low 2.7-4.8 [facility] Comment on above: Order Comment: Speci men Type: BLOOD SPECIMENOrdering Facility: [facility] Address: [address] [place] [address] Performed By: #### 1 9123-9, 2777-1, 3016-3 ####[facility]ATORYCLIA [id number] [place] [address] [place] Prot CSF-mCncon 07-26-2021 Protein (CSF) [Mass/Vol] 64 mg/dL High 15-45 [facility] Comment on above: Order Comment: Speci men Type: CEREBROSPINAL FLUIDOrdering Facility: [facility] Address: [address] [place] [address] Performed By: #### 2 880-3, 2342-4 ####[facility]ATORYCLIA [id number] [address] OF [facility] THERAPY NTon 07-26-[address] [facility] TSH SerPl-aCncon 07-26-2021 TSH Qn 1.470 m[IU]/L Normal 0.270-4.200 [facility] Comment on above: Order Comment: Speci men Type: BLOOD SPECIMENOrdering Facility: [facility] Address: [address] [place] [address] Performed By: #### 1 9123-9, 2777-1, 3016-3 ####[facility]ATORYCLIA [id number] [address] [place] VITAMIN B12 BLOODon 07-27-19 Cobalamin (Vitamin B12) [Mass/Vol] 934 pg/mL Normal 232-1,245 [facility] [facility] Comment on above: Order Comment: Speci men Type: BLOOD SPECIMENOrdering Facility: [facility] Address: [address] [place] [address] Performed By: #### B 12 ####[facility]ATORYCLIA [id number] [address] [place] aPTT PPPon 07-26-2021 aPTT Coag (PPP) [Time] 53.6 s High 23.0-32.4 [facility] Comment on above: Order Comment: Speci men Type: BLOOD SPECIMENOrdering Facility: [facility] Address: [address] [place] [address] Performed By: #### 1 4979-9 ####[facility]ATORYCLIA [id number] [address] aPTT Coag (PPP) [Time] 44.9 s High 23.0-32.4 [facility] Comment on above: Order Comment: Speci men Type: BLOOD SPECIMENOrdering Facility: [facility] Address: [address] [place] [address] Performed By: #### 1 4979-9 ####[facility]ATORYCLIA [id number] [address] ALLIED HEALTHon 07-25-2021 ALLIED HEALTH HNO ID: [id number] Author: RT Rajwinder(R) Service: Radiology Author Type: Technologist Type: Allied Health Filed: 07/25/2021 1:37 PM Note Text: Called floor for MRI screening form [id number] [facility] Bacteria Bld Culton 07-26-19 Bacteria identified Cx Nom (Bld) CULTURE, BLOOD: No growth [address] [facility] Comment on above: Performed By: #### 6 00-7 ####[facility]ATORYCLIA [id number] [address] Bacteria identified Cx Nom (Bld) CULTURE, BLOOD: No growth [address] [facility] Comment on above: Performed By: #### 6 00-7 ####[facility]ATORYCLIA [id number] [address] CASE MANAGEMon 07-25-[address] [facility] CBC W Auto Differential pane l (Bld)on 07-25-2021 Basophils (Bld) [#/Vol] 0.06 10*3/uL Normal <0.11 [facility] Comment on above: Order Comment: Speci men Type: BLOOD SPECIMENOrdering Facility: [facility] Address: [address] [place] [address] Performed By: #### 5 7021-8 ####[facility]ATORYCLIA [id number] [place] [address] [place] Basophils/100 WBC (Bld) 0.6 % Normal [facility] Comment on above: Order Comment: Speci men Type: BLOOD SPECIMENOrdering Facility: [facility] Address: [address] [place] [address] Performed By: #### 5 7021-8 ####[facility]ATORYCLIA [id number] [address] [place] Differential cell count method Nom (Bld) Auto Normal [facility] Comment on above: Order Comment: Speci men Type: BLOOD SPECIMENOrdering Facility: [facility] Address: [address] [place] [address] Performed By: #### 5 7021-8 ####[facility]ATORYCLIA [id number] [address] [place] Eosinophils (Bld) [#/Vol] 0.26 10*3/uL Normal <0.46 [facility] Comment on above: Order Comment: Speci men Type: BLOOD SPECIMENOrdering Facility: [facility] Address: [address] [place] [address] Performed By: #### 5 7021-8 ####[facility]ATORYCLIA [id number] [address] [place] Eosinophils/100 WBC (Bld) 2.5 % Normal [facility] Comment on above: Order Comment: Speci men Type: BLOOD SPECIMENOrdering Facility: [facility] Address: [address] [place] [address] Performed By: #### 5 7021-8 ####[facility]ORYCLIA [id number] [address] Erythrocyte distribution width (RBC) [Ratio] 16.9 % High 11.5-15.0 [facility] Comment on above: Order Comment: Speci men Type: BLOOD SPECIMENOrdering Facility: [facility] Address: [address] [place] [address] Performed By: #### 5 7021-8 ####[facility]ATORYCLIA [id number] [address] OF [facility] Hematocrit (Bld) [Volume fraction] 29.6 % Low 39.0-51.0 [facility] Comment on above: Order Comment: Speci men Type: BLOOD SPECIMENOrdering Facility: [facility] Address: [address] [place] [address] Performed By: #### 5 7021-8 ####[facility]ORYCLIA [id number] [address] STATES OF [facility] Hemoglobin (Bld) [Mass/Vol] 8.8 g/dL Low 13.0-17.0 [facility] Comment on above: Order Comment: Speci men Type: BLOOD SPECIMENOrdering Facility: [facility] Address: [address] [place] [address] Performed By: #### 5 7021-8 ####[facility]ATORYCLIA [id number] [address] [place] IMMATURE GRAN % 0.6 % Normal [facility] Comment on above: Order Comment: Speci men Type: BLOOD SPECIMENOrdering Facility: [facility] Address: [address] [place] [address] Performed By: #### 5 7021-8 ####[facility]ATORYCLIA [id number] [address] IMMATURE GRAN ABS 0.06 k/uL Normal <0.10 [facility] Comment on above: Order Comment: Speci men Type: BLOOD SPECIMENOrdering Facility: [facility] Address: [address] [place] [address] Performed By: #### 5 7021-8 ####[facility]ATORYCLIA [id number] [address] [place] Lymphocytes (Bld) [#/Vol] 2.15 10*3/uL Normal 1.00-4.00 [facility] Comment on above: Order Comment: Speci men Type: BLOOD SPECIMENOrdering Facility: [facility] Address: [address] [place] [address] Performed By: #### 5 7021-8 ####[facility]ATORYCLIA [id number] [address] Lymphocytes/100 WBC (Bld) 20.7 % Normal [facility] Comment on above: Order Comment: Speci men Type: BLOOD SPECIMENOrdering Facility: [facility] Address: [address] [place] [address] Performed By: #### 5 7021-8 ####[facility]ATORYCLIA [id number] [address] MCH (RBC) [Entitic mass] 28.2 pg Normal 26.0-34.0 [facility] Comment on above: Order Comment: Speci men Type: BLOOD SPECIMENOrdering Facility: [facility] Address: [address] [place] [address] Performed By: #### 5 7021-8 ####[facility]ATORYCLIA [id number] [address] STATES OF [facility] MCHC (RBC) [Mass/Vol] 29.7 g/dL Low 30.5-36.0 [facility] Comment on above: Order Comment: Speci men Type: BLOOD SPECIMENOrdering Facility: [facility] Address: [address] [place] [address] Performed By: #### 5 7021-8 ####[facility]ATORYCLIA [id number] [address] STATES OF [facility] MCV (RBC) [Entitic vol] 94.9 fL Normal 80.0-100.0 [facility] Comment on above: Order Comment: Speci men Type: BLOOD SPECIMENOrdering Facility: [facility] Address: [address] [place] [address] Performed By: #### 5 7021-8 ####[facility] LABORATORYCLIA [id number] [address] [place] Monocytes (Bld) [#/Vol] 0.62 10*3/uL Normal <0.87 [facility] Comment on above: Order Comment: Speci men Type: BLOOD SPECIMENOrdering Facility: [facility] Address: [address] [place] [address] Performed By: #### 5 7021-8 ####[facility]ATORYCLIA [id number] [address] Monocytes/100 WBC (Bld) 6.0 % Normal [facility] Comment on above: Order Comment: Speci men Type: BLOOD SPECIMENOrdering Facility: [facility] Address: [address] [place] [address] Performed By: #### 5 7021-8 ####[facility]ATORYCLIA [id number] [address] [place] Neutrophils (Bld) [#/Vol] 7.25 10*3/uL Normal 1.45-7.50 [facility] Comment on above: Order Comment: Speci men Type: BLOOD SPECIMENOrdering Facility: [facility] Address: [address] [place] [address] Performed By: #### 5 7021-8 ####[facility]ATORYCLIA [id number] [address] [place] Neutrophils/100 WBC (Bld) 69.6 % Normal [facility] Comment on above: Order Comment: Speci men Type: BLOOD SPECIMENOrdering Facility: [facility] Address: [address] [place] [address] Performed By: #### 5 7021-8 ####[facility] LABORATORYCLIA [id number] [place] [address] [place] Nucleated RBC (Bld) [#/Vol] 10*3/uL Normal <0.01 [facility] Comment on above: Order Comment: Speci men Type: BLOOD SPECIMENOrdering Facility: [facility] Address: [address] [place] [address] Performed By: #### 5 7021-8 ####[facility]ATORYCLIA [id number] [place] [address] [place] Nucleated RBC/100 WBC (Bld) [Ratio] 0.0 /[address] [facility] Comment on above: Order Comment: Speci men Type: BLOOD SPECIMENOrdering Facility: [facility] Address: [address] [place] [address] Performed By: #### 5 7021-8 ####[facility]ATORYCLIA [id number] [place] [address] [place] Platelet mean volume (Bld) [Entitic vol] 11.3 fL Normal 9.0-12.7 [facility] Comment on above: Order Comment: Speci men Type: BLOOD SPECIMENOrdering Facility: [facility] Address: [address] [place] [address] Performed By: #### 5 7021-8 ####[facility]ATORYCLIA [id number] [place] [address] [place] Platelets (Bld) [#/Vol] 243 10*3/uL Normal 150-400 [facility] Comment on above: Order Comment: Speci men Type: BLOOD SPECIMENOrdering Facility: [facility] Address: [address] Performed By: #### 5 7021-8 ####[facility]ATORYCLIA [id number] [place] [address] [place] RBC (Bld) [#/Vol] 3.12 10*6/uL Low 4.20-6.00 [facility] Comment on above: Order Comment: Speci men Type: BLOOD SPECIMENOrdering Facility: [facility] Address: [address] [place] [address] Performed By: #### 5 7021-8 ####[facility]ATORYCLIA [id number] [place] [address] [place] WBC (Bld) [#/Vol] 10.40 10*3/uL Normal 3.70-11.00 [facility] Comment on above: Order Comment: Speci men Type: BLOOD SPECIMENOrdering Facility: [facility] Address: [address] [place] [address] Performed By: #### 5 7021-8 ####[facility]ATORYCLIA [id number] [address] [place] CONSULT PROGon 07-25-[address] [facility] MYCOPLASMA PNEUM IGMon 07-25 M. PNEUMO IGM, QUAL Negative Normal Negative [facility] Comment on above: Order Comment: Speci [facility] Type: BLOOD SPECIMENOrdering Facility: [facility] Address: [address] [place] [address] Result Comment: Myco plasma pneumoniae IgM antibody test is used as an aid in diagnosis of recent infection with M. pneumoniae. It may occasionally remain elevated for extended periods after an acute infection. Cannot exclude recent infection if the specimen collected 7-10 days after onset of signs and symptoms. Clinical correlation is required. Performed By: #### M YCOPM ####[facility] LABCLIA [id number] [facility] [id number] [place] NURSING PROGon 07-25-[address] [facility] THERAPY NTon 07-25-[address] [facility] THERAPY NT Normal [facility] aPTT PPPon 07-25-2021 aPTT Coag (PPP) [Time] 62.6 s High 23.0-32.4 [facility] Comment on above: Order Comment: Speci men Type: BLOOD SPECIMENOrdering Facility: [facility] Address: [address] [place] [address] Performed By: #### 1 4979-9 ####[facility]ATORYCLIA [id number] [place] [address] [place] Bacteria Ur Culton 2 Bacteria identified Cx Nom (U) CULTURE, URINE: No growth (<100 CFU/ml) Normal [facility] Comment on above: Performed By: #### 6 30-4 ####[facility]ATORYCLIA [id number] [place] [address] [place] Basic metabolic 2000 panelon 07-24-2021 Anion gap [Moles/Vol] 13 mmol/L Normal 9-18 [facility] Comment on above: Order Comment: Speci men Type: BLOOD SPECIMENOrdering Facility: [facility] Address: [address] [place] [address] Performed By: #### 1 9123-9, KATIE, 2776-05, 26617-0 ####[facility]ATORYCLIA [id number] [place] [address] [place] Calcium [Mass/Vol] 9.5 mg/dL Normal 8.5-10.2 [facility] Comment on above: Order Comment: Speci men Type: BLOOD SPECIMENOrdering Facility: [facility] Address: [address] [place] [address] Performed By: #### 1 9123-9, KATIE, 2776-05, 33175-2 ####[facility]ATORYCLIA [id number] [place] [address] [place] Chloride [Moles/Vol] 102 mmol/L Normal 97-105 [facility] Comment on above: Order Comment: Speci men Type: BLOOD SPECIMENOrdering Facility: [facility] Address: [address] [address] Performed By: #### 1 9123-9, KATIE, 2776-05, ####[facility]ATORYCLIA [id number] [place] [address] [place] CO2 [Moles/Vol] 28 mmol/L Normal 22-30 [facility] Comment on above: Order Comment: Speci men Type: BLOOD SPECIMENOrdering Facility: [facility] Address: [address] [address] Performed By: #### 1 9123-9, PROCAL, 2777-1, 32437-4 ####[facility] HOSPITALIA [id number] [address] [place] Creatinine [Mass/Vol] 0.86 mg/dL Normal 0.73-1.22 [facility] Comment on above: Order Comment: Speci men Type: BLOOD SPECIMENOrdering Facility: [facility] Address: [address] [address] Performed By: #### 1 9123-9, [facility], 277-, 40789-6 ####[facility] HOSPITALIA [id number] [address] [place] ESTIMATED GLOMERULAR FILTRATION RATE 94 mL/min/1.73m??? Normal >=60 [facility] Comment on above: Order Comment: Speci men Type: BLOOD SPECIMENOrdering Facility: [facility] Address: [address] [address] Result Comment: Luzmaria mated Glomerular Filtration Rate [...] Performed By: #### 1 9123-9, PROCAL, 2777-1, 37479-6 ####[facility] HOSPITALIA [id number] [address] [place] Glucose [Mass/Vol] 148 mg/dL High 74-99 [facility] Comment on above: Order Comment: Speci men Type: BLOOD SPECIMENOrdering Facility: [facility] Address: [address] [address] Result Comment: The [place] [employer] (ADA) provides guidance for cutoff [...] Standards of Medical Care in Diabetes 2016, [place] [employer]. Diabetes Care. 2016.39(Suppl 1). Performed By: #### 1 9123-9, PROCAL, 2776-, 58516-3 ####[facility]ORATORYCLIA [id number] [place] [address] [place] Potassium [Moles/Vol] 4.0 mmol/L Normal 3.7-5.1 [facility] Comment on above: Order Comment: Shira feldman Type: BLOOD SPECIMENOrdering Facility: [facility] Address: [address] [place] [address] Performed By: #### 1 9123-9, [facility], 2776-05, 20747-5 ####[facility]CL[facility] [id number] [place] [address] [place] Sodium [Moles/Vol] 143 mmol/L Normal 136-144 [facility] Comment on above: Order Comment: Shira feldman Type: BLOOD SPECIMENOrdering Facility: [facility] Address: [address] [place] [address] Performed By: #### 1 9123-9, [employer], 2776-05, 86778-3 ####[facility]ATORYCLIA [id number] [place] [address] [place] Urea nitrogen [Mass/Vol] 38 mg/dL High 9-24 [facility] Comment on above: Order Comment: Shira feldman Type: BLOOD SPECIMENOrdering Facility: [facility] Address: [address] [address] Performed By: #### 1 9123-9, PROCAL, 7-, 96471-1 ####[facility]ATORYCLIA [id number] [place] [address] [place] CBC W Auto Differential pane l (Bld)on 07-24-2021 Basophils (Bld) [#/Vol] 0.06 10*3/uL Normal <0.11 [facility] Comment on above: Order Comment: Speci men Type: BLOOD SPECIMENOrdering Facility: [facility] Address: [address] [place] [address] Performed By: #### 5 7021-8 ####[facility]ATORYCLIA [id number] [address] STATES [facility] Basophils/100 WBC (Bld) 0.6 % Normal [facility] Comment on above: Order Comment: Speci men Type: BLOOD SPECIMENOrdering Facility: [facility] Address: [address] [place] [address] Performed By: #### 5 7021-8 ####[facility]ATORYCLIA [id number] [address] Differential cell count method Nom (Bld) Auto Normal [facility] Comment on above: Order Comment: Speci men Type: BLOOD SPECIMENOrdering Facility: [facility] Address: [address] [place] [address] Performed By: #### 5 7021-8 ####[facility]ATORYCLIA [id number] [address] [place] Eosinophils (Bld) [#/Vol] 0.03 10*3/uL Normal <0.46 [facility] Comment on above: Order Comment: Speci men Type: BLOOD SPECIMENOrdering Facility: [facility] Address: [address] [place] [address] Performed By: #### 5 7021-8 ####[facility]ATORYCLIA [id number] [address] Eosinophils/100 WBC (Bld) 0.3 % Normal [facility] Comment on above: Order Comment: Speci men Type: BLOOD SPECIMENOrdering Facility: [facility] Address: [address] [address] Performed By: #### 5 7021-8 ####[facility]ATORYCLIA [id number] [address] Erythrocyte distribution width (RBC) [Ratio] 17.0 % High 11.5-15.0 [facility] Comment on above: Order Comment: Speci men Type: BLOOD SPECIMENOrdering Facility: [facility] Address: [address] [place] [address] Performed By: #### 5 7021-8 ####[facility]ATORYCLIA [id number] [address] Hematocrit (Bld) [Volume fraction] 30.5 % Low 39.0-51.0 [facility] Comment on above: Order Comment: Speci men Type: BLOOD SPECIMENOrdering Facility: [facility] Address: [address] [place] [address] Performed By: #### 5 7021-8 ####[facility]ATORYCLIA [id number] [address] Hemoglobin (Bld) [Mass/Vol] 9.0 g/dL Low 13.0-17.0 [facility] Comment on above: Order Comment: Speci men Type: BLOOD SPECIMENOrdering Facility: [facility] Address: [address] [place] [address] Performed By: #### 5 7021-8 ####[facility]ATORYCLIA [id number] [address] IMMATURE GRAN % 0.5 % Normal [facility] Comment on above: Order Comment: Speci men Type: BLOOD SPECIMENOrdering Facility: [facility] Address: [address] [place] [address] Performed By: #### 5 7021-8 ####[facility]ATORYCLIA [id number] [address] IMMATURE GRAN ABS 0.05 k/uL Normal <0.10 [facility] Comment on above: Order Comment: Speci men Type: BLOOD SPECIMENOrdering Facility: [facility] Address: [address] [place] [address] Performed By: #### 5 7021-8 ####[facility]ATORYCLIA [id number] [address] OF [facility] Lymphocytes (Bld) [#/Vol] 1.68 10*3/uL Normal 1.00-4.00 [facility] Comment on above: Order Comment: Speci men Type: BLOOD SPECIMENOrdering Facility: [facility] Address: [address] [place] [address] Performed By: #### 5 7021-8 ####[facility]ATORYCLIA [id number] [address] Lymphocytes/100 WBC (Bld) 16.2 % Normal [facility] Comment on above: Order Comment: Speci men Type: BLOOD SPECIMENOrdering Facility: [facility] Address: [address] [place] [address] Performed By: #### 5 7021-8 ####[facility]ATORYCLIA [id number] [address] [place] MCH (RBC) [Entitic mass] 27.4 pg Normal 26.0-34.0 [facility] Comment on above: Order Comment: Speci men Type: BLOOD SPECIMENOrdering Facility: [facility] Address: [address] [place] [address] Performed By: #### 5 7021-8 ####[facility]ATORYCLIA [id number] [address] [place] MCHC (RBC) [Mass/Vol] 29.5 g/dL Low 30.5-36.0 [facility] Comment on above: Order Comment: Speci men Type: BLOOD SPECIMENOrdering Facility: [facility] Address: [address] [place] [address] Performed By: #### 5 7021-8 ####[facility]ATORYCLIA [id number] [address] [place] MCV (RBC) [Entitic vol] 93.0 fL Normal 80.0-100.0 [facility] Comment on above: Order Comment: Speci men Type: BLOOD SPECIMENOrdering Facility: [facility] Address: [address] [place] [address] Performed By: #### 5 7021-8 ####[facility]ATORYCLIA [id number] [place] [address] [place] Monocytes (Bld) [#/Vol] 0.63 10*3/uL Normal <0.87 [facility] Comment on above: Order Comment: Speci men Type: BLOOD SPECIMENOrdering Facility: [facility] Address: [address] [place] [address] Performed By: #### 5 7021-8 ####[facility]ORYCLIA [id number] [address] Monocytes/100 WBC (Bld) 6.1 % Normal [facility] Comment on above: Order Comment: Speci men Type: BLOOD SPECIMENOrdering Facility: [facility] Address: [address] [place] [address] Performed By: #### 5 7021-8 ####[facility]ATORYCLIA [id number] [address] [place] Neutrophils (Bld) [#/Vol] 7.91 10*3/uL High 1.45-7.50 [facility] Comment on above: Order Comment: Speci men Type: BLOOD SPECIMENOrdering Facility: [facility] Address: [address] [place] [address] Performed By: #### 5 7021-8 ####[facility]ORYCLIA [id number] [address] [place] Neutrophils/100 WBC (Bld) 76.3 % Normal [facility] Comment on above: Order Comment: Speci men Type: BLOOD SPECIMENOrdering Facility: [facility] Address: [address] [place] [address] Performed By: #### 5 7021-8 ####[facility]ATORYCLIA [id number] [address] [place] Nucleated RBC (Bld) [#/Vol] 10*3/uL Normal <0.01 [facility] Comment on above: Order Comment: Speci men Type: BLOOD SPECIMENOrdering Facility: [facility] Address: [address] [place] [address] Performed By: #### 5 7021-8 ####[facility]ORATORYCLIA [id number] [address] [place] Nucleated RBC/100 WBC (Bld) [Ratio] 0.0 /[address] [facility] Comment on above: Order Comment: Speci men Type: BLOOD SPECIMENOrdering Facility: [facility] Address: [address] [place] [address] Performed By: #### 5 7021-8 ####[facility]ORATORYCLIA [id number] [address] Platelet mean volume (Bld) [Entitic vol] 11.1 fL Normal 9.0-12.7 [facility] Comment on above: Order Comment: Speci men Type: BLOOD SPECIMENOrdering Facility: [facility] Address: [address] [place] [address] Performed By: #### 5 7021-8 ####[facility]ATORYCLIA [id number] [address] [place] Platelets (Bld) [#/Vol] 285 10*3/uL Normal 150-400 [facility] Comment on above: Order Comment: Speci men Type: BLOOD SPECIMENOrdering Facility: [facility] Address: [address] [place] [address] Performed By: #### 5 7021-8 ####[facility]ATORYCLIA [id number] [address] [place] RBC (Bld) [#/Vol] 3.28 10*6/uL Low 4.20-6.00 [facility] Comment on above: Order Comment: Speci men Type: BLOOD SPECIMENOrdering Facility: [facility] Address: [address] [place] [address] Performed By: #### 5 7021-8 ####[facility]ATORYCLIA [id number] [place] [address] [place] WBC (Bld) [#/Vol] 10.36 10*3/uL Normal 3.70-11.00 [facility] Comment on above: Order Comment: Speci men Type: BLOOD SPECIMENOrdering Facility: [facility] Address: [address] [place] [address] Performed By: #### 5 7021-8 ####[facility]ORYCLIA [id number] [address] [place] Legionella Ag Ur Qlon 2021 Legionella sp Ag Ql (U) Negative Normal Negative [facility] Comment on above: Order Comment: Speci men Type: URINE SPECIMENOrdering Facility: [facility] Address: [address] [place] [address] Performed By: #### 3 2781-7 ####[facility]ATORYCLIA [id number] [place] [address] [place] Magnesium SerPl-mCncon 07-24 Magnesium [Mass/Vol] 2.3 mg/dL Normal 1.7-2.3 [facility] Comment on above: Order Comment: Speci men Type: BLOOD SPECIMENOrdering Facility: [facility] Address: [address] [place] [address] Performed By: #### 1 9123-9, PROCAL, 2777-1, 95940-0 ####[facility]ATORYCLIA [id number] [address] [place] NURSING PROGon 07-24-[address] [facility] PROCALCITONIN (LAB)on 2021 Procalcitonin [Mass/Vol] 0.15 ng/mL High <0.09 [facility] Comment on above: Order Comment: Speci men Type: BLOOD SPECIMENOrdering Facility: [facility] Address: [address] [place] [address] Result Comment: For a guided interpretation of test results, please visit the Change in Procalcitonin Calculator, [email or web address]. Performed By: #### 1 9123-9, PROCCARLITOS, 2777-1, 91073-9 ####[facility]ATORYCLIA [id number] [address] [place] Phosphate SerPl-mCncon 07-24 Phosphate [Mass/Vol] 3.9 mg/dL Normal 2.7-4.8 [facility] Comment on above: Order Comment: Speci men Type: BLOOD SPECIMENOrdering Facility: [facility] Address: [address] [place] [address] Performed By: #### 1 9123-9, PROCAL, 2777-1, 36591-6 ####[facility]ATORYCLIA [id number] [address] [place] STREPTOCOCCUS PNEUMONIAE AGo n 07-24-2021 STREPTOCOCCUS PNEUMONIAE AG Normal [facility] Comment on above: Performed By: #### S PNAG ####[facility]ATORYCLIA [id number] [address] [place] aPTT PPPon 07-24-2021 aPTT Coag (PPP) [Time] 60.8 s High 23.0-32.4 [facility] Comment on above: Order Comment: Speci men Type: BLOOD SPECIMENOrdering Facility: [facility] Address: [address] [place] [address] Performed By: #### 1 4979-9 ####[facility]ORYCLIA [id number] [address] [place] aPTT Coag (PPP) [Time] 38.2 s High 23.0-32.4 [facility] Comment on above: Order Comment: Speci men Type: BLOOD SPECIMENOrdering Facility: [facility] Address: [address] [address] Performed By: #### 1 4979-9 ####[facility]ATORYCLIA [id number] [address] aPTT Coag (PPP) [Time] 35.9 s High 23.0-32.4 [facility] Comment on above: Order Comment: Speci men Type: BLOOD SPECIMENOrdering Facility: [facility] Address: [address] [place] [address] Performed By: #### 1 4979-9 ####[facility]ATORYCLIA [id number] [address] aPTT Coag (PPP) [Time] 28.8 s Normal 23.0-32.4 [facility] Comment on above: Order Comment: Speci men Type: BLOOD SPECIMENOrdering Facility: [facility] Address: [address] [place] [address] Performed By: #### 1 4979-9 ####[facility]ATORYCLIA [id number] [address] [place] ALLIED HEALTHon 07-23-[address] [facility] ALLIED HEALTH Normal [facility] ALLIED HEALTH Normal [facility] ARTERIAL BLOOD GASESon 07-23 Base excess Calc (Bld) [Moles/Vol] 4 mmol/L High 0-2 [facility] Comment on above: Order Comment: Speci men Type: ARTERIAL BLOOD SPECIMENOrdering Facility: [facility] Address: [address] [address] Performed By: #### A LLBG ####[facility]ATORYCLIA [id number] [address] Body temperature 100.58 [degF] Normal [facility] Comment on above: Order Comment: Speci men Type: ARTERIAL BLOOD SPECIMENOrdering Facility: [facility] Address: [address] [place] [address] Performed By: #### A LLBG ####[facility]ATORYCLIA [id number] [address] STATES OF [facility] CALCIUM IONIZED, PH CORRECTED 1.26 mmol/L Normal 1.08-1.30 [facility] Comment on above: Order Comment: Speci men Type: ARTERIAL BLOOD SPECIMENOrdering Facility: [facility] Address: [address] [place] [address] Performed By: #### A LLBG ####[facility]ATORYCLIA [id number] [place] [address] [place] Calcium.ionized (BldV) [Mass/Vol] 1.25 mmol/L Normal 1.08-1.30 [facility] Comment on above: Order Comment: Speci men Type: ARTERIAL BLOOD SPECIMENOrdering Facility: [facility] Address: [address] [place] [address] Performed By: #### A LLBG ####[facility]ATORYCLIA [id number] [address] Carboxyhemoglobin (BldA) [Mass fraction] 1.2 % Normal 0.0-2.0 [facility] Comment on above: Order Comment: Speci men Type: ARTERIAL BLOOD SPECIMENOrdering Facility: [facility] Address: [address] [place] [address] Result Comment: Carb oxyhemoglobin Reference Range for Smokers: 2.0-8.0% Performed By: #### A LLBG ####[facility]ATORYCLIA [id number] [place] [address] [place] CO2 (Bld) [Partial pressure] 46 mm Hg Normal 36-46 [facility] Comment on above: Order Comment: Speci men Type: ARTERIAL BLOOD SPECIMENOrdering Facility: [facility] Address: [address] [place] [address] Performed By: #### A LLBG ####[facility]ATORYCLIA [id number] [address] [place] CO2 [Moles/Vol] 27 mmol/L Normal 22-28 [facility] Comment on above: Order Comment: Speci men Type: ARTERIAL BLOOD SPECIMENOrdering Facility: [facility] Address: [address] [place] [address] Performed By: #### A LLBG ####[facility]ATORYCLIA [id number] [address] CO2 adjusted to patient's actual temperature (Bld) [Partial pressure] 48 mmHg High 36-46 [facility] Comment on above: Order Comment: Speci men Type: ARTERIAL BLOOD SPECIMENOrdering Facility: [facility] Address: [address] [place] [address] Performed By: #### A LLBG ####[facility]ATORYCLIA [id number] [address] [place] Glucose [Mass/Vol] 134 mg/dL High 60-105 [facility] Comment on above: Order Comment: Speci men Type: ARTERIAL BLOOD SPECIMENOrdering Facility: [facility] Address: [address] [place] [address] Performed By: #### A LLBG ####[facility]ATORYCLIA [id number] [address] [place] HCO3 (Bld) [Moles/Vol] 29 mmol/L High 22-26 [facility] Comment on above: Order Comment: Speci men Type: ARTERIAL BLOOD SPECIMENOrdering Facility: [facility] Address: [address] [place] [address] Performed By: #### A LLBG ####[facility]ATORYCLIA [id number] [address] Hematocrit (Bld) [Volume fraction] 31.4 % Low 39.0-51.0 [facility] Comment on above: Order Comment: Speci men Type: ARTERIAL BLOOD SPECIMENOrdering Facility: [facility] Address: [address] [place] [address] Performed By: #### A LLBG ####[facility]ATORYCLIA [id number] [address] [place] Hemoglobin (Bld) [Mass/Vol] 10.2 g/dL Low 13.0-17.0 [facility] Comment on above: Order Comment: Speci men Type: ARTERIAL BLOOD SPECIMENOrdering Facility: [facility] Address: [facility] [place] [address] Performed By: #### A LLBG ####[facility]ATORYCLIA [id number] [address] Methemoglobin (Bld) [Mass fraction] % Normal 0.0-1.5 [facility] Comment on above: Order Comment: Speci men Type: ARTERIAL BLOOD SPECIMENOrdering Facility: [facility] Address: [address] [place] [address] Performed By: #### A LLBG ####[facility]ATORYCLIA [id number] [address] O2 THERAPY Ventilator Normal [facility] Comment on above: Order Comment: Speci men Type: ARTERIAL BLOOD SPECIMENOrdering Facility: [facility] Address: [address] [place] [address] Performed By: #### A LLBG ####[facility]ATORYCLIA [id number] [address] Oxygen (Bld) [Partial pressure] 113 mm Hg High 85-95 [facility] Comment on above: Order Comment: Speci men Type: ARTERIAL BLOOD SPECIMENOrdering Facility: [facility] Address: [address] [place] [address] Performed By: #### A LLBG ####[facility]ATORYCLIA [id number] [address] Oxygen adjusted to patient's actual temperature (Bld) [Partial pressure] 119 mmHg High 85-95 [facility] Comment on above: Order Comment: Speci men Type: ARTERIAL BLOOD SPECIMENOrdering Facility: [facility] Address: [address] [place] [address] Performed By: #### A LLBG ####[facility]ATORYCLIA [id number] [place] [address] OXYGEN SATURATION, ARTERIAL 98 % Normal 95-98 [facility] Comment on above: Order Comment: Speci men Type: ARTERIAL BLOOD SPECIMENOrdering Facility: [facility] Address: [address] [place] [address] Performed By: #### A LLBG ####[facility]ORYCLIA [id number] [address] [place] Oxyhemoglobin (BldA) [Mass fraction] 96 % Normal 95-98 [facility] Comment on above: Order Comment: Speci men Type: ARTERIAL BLOOD SPECIMENOrdering Facility: [facility] Address: [address] [place] [address] Performed By: #### A LLBG ####[facility]ATORYCLIA [id number] [address] [place] pH (Bld) 7.41 [pH] Normal 7.35-7.45 [facility] Comment on above: Order Comment: Speci men Type: ARTERIAL BLOOD SPECIMENOrdering Facility: [facility] Address: [address] [place] [address] Performed By: #### A LLBG ####[facility]ORYCLIA [id number] [address] pH adjusted to patient's actual temperature (Bld) 7.40 Normal 7.35-7.45 [facility] Comment on above: Order Comment: Speci men Type: ARTERIAL BLOOD SPECIMENOrdering Facility: [facility] Address: [address] [place] [address] Performed By: #### A LLBG ####[facility]ORYCLIA [id number] [address] [place] Potassium [Moles/Vol] 4.3 mmol/L Normal 3.5-5.0 [facility] Comment on above: Order Comment: Speci men Type: ARTERIAL BLOOD SPECIMENOrdering Facility: [facility] Address: [address] [place] [address] Performed By: #### A LLBG ####[facility]ATORYCLIA [id number] [address] [place] Sodium [Moles/Vol] 144 mmol/L Normal 136-144 [facility] Comment on above: Order Comment: Speci men Type: ARTERIAL BLOOD SPECIMENOrdering Facility: [facility] Address: [address] [address] Performed By: #### A LLBG ####[facility]ATORYCLIA [id number] [address] Bacteria CSF Culton 07-24-19 22 Bacteria identified Cx Nom (CSF) Abnormal [facility] Comment on above: Performed By: #### 6 06-4 ####[facility]ATORYCLIA [id number] [address] [place] Basic metabolic 2000 panelon 07-23-2021 Anion gap [Moles/Vol] 12 mmol/L Normal 9-18 [facility] Comment on above: Order Comment: Speci men Type: BLOOD SPECIMENOrdering Facility: [facility] Address: [address] [place] [address] Performed By: #### 2 4321-2 ####[facility]ATORYCLIA [id number] [address] [place] Calcium [Mass/Vol] 9.7 mg/dL Normal 8.5-10.2 [facility] Comment on above: Order Comment: Speci men Type: BLOOD SPECIMENOrdering Facility: [facility] Address: [address] [address] Performed By: #### 2 4321-2 ####[facility]ATORYCLIA [id number] [address] [place] Chloride [Moles/Vol] 105 mmol/L Normal 97-105 [facility] Comment on above: Order Comment: Speci men Type: BLOOD SPECIMENOrdering Facility: [facility] Address: [address] [address] Performed By: #### 2 4321-2 ####[facility]ATORYCLIA [id number] [address] STATES OF [facility] CO2 [Moles/Vol] 28 mmol/L Normal 22-30 [facility] Comment on above: Order Comment: Speci men Type: BLOOD SPECIMENOrdering Facility: [facility] Address: [address] [place] [address] Performed By: #### 2 4321-2 ####[facility]ATORYCLIA [id number] [address] STATES OF [facility] Creatinine [Mass/Vol] 0.78 mg/dL Normal 0.73-1.22 [facility] Comment on above: Order Comment: Speci men Type: BLOOD SPECIMENOrdering Facility: [facility] Address: [address] [place] [address] Performed By: #### 2 4321-2 ####[facility]CL[facility] [id number] [address] ESTIMATED GLOMERULAR FILTRATION RATE 97 mL/min/1.73m??? Normal >=60 [facility] Comment on above: Order Comment: Speci men Type: BLOOD SPECIMENOrdering Facility: [facility] Address: [address] [place] [address] Result Comment: Luzmaria mated Glomerular Filtration Rate [...] GFR. Performed By: #### 2 4321-2 ####[facility]ATORYCLIA [id number] [address] STATES OF [facility] Glucose [Mass/Vol] 127 mg/dL High 74-99 [facility] Comment on above: Order Comment: Speci men Type: BLOOD SPECIMENOrdering Facility: [facility] Address: [address] [place] [address] Result Comment: The [place] [employer] (ADA) provides guidance for cutoff [...] Standards of Medical Care in Diabetes 2016, [place] [employer]. Diabetes Care. 2016.39(Suppl 1). Performed By: #### 2 4321-2 ####[facility]ATORYCLIA [id number] [address] STATES OF [facility] Potassium [Moles/Vol] 4.3 mmol/L Normal 3.7-5.1 [facility] Comment on above: Order Comment: Shira feldman Type: BLOOD SPECIMENOrdering Facility: [facility] Address: [address] [place] [address] Performed By: #### 2 4321-2 ####[facility]ATORYCLIA [id number] [address] STATES [facility] Sodium [Moles/Vol] 145 mmol/L High 136-144 [facility] Comment on above: Order Comment: Shira feldman Type: BLOOD SPECIMENOrdering Facility: [facility] Address: [address] [place] [address] Performed By: #### 2 4321-2 ####[facility]ORYCLIA [id number] [address] STATES [facility] Urea nitrogen [Mass/Vol] 37 mg/dL High 9-24 [facility] Comment on above: Order Comment: Shira feldman Type: BLOOD SPECIMENOrdering Facility: [facility] Address: [address] [place] [address] Performed By: #### 2 4321-2 ####[facility]ATORYCLIA [id number] [place] [address] [place] C diff Tox gens Stl Ql MEGAN+p robeon 07-23-2021 C. difficile toxin genes MEGAN+probe Ql (Stl) Negative Normal Negative for C. difficile toxin by PCR [facility] Comment on above: Order Comment: Speci men Type: STOOL SPECIMENOrdering Facility: [facility] Address: [address] [place] [address] Performed By: #### 5 4067-4 ####[facility]ORYCLIA [id number] [address] STATES OF [facility] CBC W Auto Differential pane l (Bld)on 07-23-2021 Basophils (Bld) [#/Vol] 0.07 10*3/uL Normal <0.11 [facility] Comment on above: Order Comment: Speci men Type: BLOOD SPECIMENOrdering Facility: [facility] Address: [address] [place] [address] Performed By: #### 5 7021-8 ####[facility]ATORYCLIA [id number] [address] STATES OF [facility] Basophils/100 WBC (Bld) 0.5 % Normal [facility] Comment on above: Order Comment: Speci men Type: BLOOD SPECIMENOrdering Facility: [facility] Address: [address] [place] [address] Performed By: #### 5 7021-8 ####[facility]ATORYCLIA [id number] [address] Differential cell count method Nom (Bld) Auto Normal [facility] Comment on above: Order Comment: Speci men Type: BLOOD SPECIMENOrdering Facility: [facility] Address: [address] [place] [address] Performed By: #### 5 7021-8 ####[facility]ORYCLIA [id number] [place] [address] [place] Eosinophils (Bld) [#/Vol] 10*3/uL Normal <0.46 [facility] Comment on above: Order Comment: Speci men Type: BLOOD SPECIMENOrdering Facility: [facility] Address: [address] [place] [address] Performed By: #### 5 7021-8 ####[facility]ORYCLIA [id number] [address] Eosinophils/100 WBC (Bld) 0.2 % Normal [facility] Comment on above: Order Comment: Speci men Type: BLOOD SPECIMENOrdering Facility: [facility] Address: [address] [place] [address] Performed By: #### 5 7021-8 ####[facility]ATORYCLIA [id number] [address] [place] Erythrocyte distribution width (RBC) [Ratio] 16.7 % High 11.5-15.0 [facility] Comment on above: Order Comment: Speci men Type: BLOOD SPECIMENOrdering Facility: [facility] Address: [address] [place] [address] Performed By: #### 5 7021-8 ####[facility]ORYCLIA [id number] [address] Hematocrit (Bld) [Volume fraction] 32.8 % Low 39.0-51.0 [facility] Comment on above: Order Comment: Speci men Type: BLOOD SPECIMENOrdering Facility: [facility] Address: [address] [place] [address] Performed By: #### 5 7021-8 ####[facility]ORYCLIA [id number] [address] [place] Hemoglobin (Bld) [Mass/Vol] 9.7 g/dL Low 13.0-17.0 [facility] Comment on above: Order Comment: Speci men Type: BLOOD SPECIMENOrdering Facility: [facility] Address: [address] [place] [address] Performed By: #### 5 7021-8 ####[facility]ORYCLIA [id number] [address] [place] IMMATURE GRAN % 0.7 % Normal [facility] Comment on above: Order Comment: Speci men Type: BLOOD SPECIMENOrdering Facility: [facility] Address: [address] [place] [address] Performed By: #### 5 7021-8 ####[facility]ORYCLIA [id number] [address] IMMATURE GRAN ABS 0.09 k/uL Normal <0.10 [facility] Comment on above: Order Comment: Speci men Type: BLOOD SPECIMENOrdering Facility: [facility] Address: [address] [place] [address] Performed By: #### 5 7021-8 ####[facility]ORYCLIA [id number] [address] Lymphocytes (Bld) [#/Vol] 1.94 10*3/uL Normal 1.00-4.00 [facility] Comment on above: Order Comment: Speci men Type: BLOOD SPECIMENOrdering Facility: [facility] Address: [address] [place] [address] Performed By: #### 5 7021-8 ####[facility]ORYCLIA [id number] [address] Lymphocytes/100 WBC (Bld) 14.6 % Normal [facility] Comment on above: Order Comment: Speci men Type: BLOOD SPECIMENOrdering Facility: [facility] Address: [address] [place] [address] Performed By: #### 5 7021-8 ####[facility]ORYCLIA [id number] [address] MCH (RBC) [Entitic mass] 27.2 pg Normal 26.0-34.0 [facility] Comment on above: Order Comment: Speci men Type: BLOOD SPECIMENOrdering Facility: [facility] Address: [address] [place] [address] Performed By: #### 5 7021-8 ####[facility]ATORYCLIA [id number] [place] [address] [place] MCHC (RBC) [Mass/Vol] 29.6 g/dL Low 30.5-36.0 [facility] Comment on above: Order Comment: Speci men Type: BLOOD SPECIMENOrdering Facility: [facility] Address: [address] [place] [address] Performed By: #### 5 7021-8 ####[facility]ATORYCLIA [id number] [place] [address] [place] MCV (RBC) [Entitic vol] 92.1 fL Normal 80.0-100.0 [facility] Comment on above: Order Comment: Speci men Type: BLOOD SPECIMENOrdering Facility: [facility] Address: [address] [place] [address] Performed By: #### 5 7021-8 ####[facility]ORYCLIA [id number] [address] [place] Monocytes (Bld) [#/Vol] 0.74 10*3/uL Normal <0.87 [facility] Comment on above: Order Comment: Speci men Type: BLOOD SPECIMENOrdering Facility: [facility] Address: [address] [place] [address] Performed By: #### 5 7021-8 ####[facility]ORYCLIA [id number] [address] Monocytes/100 WBC (Bld) 5.6 % Normal [facility] Comment on above: Order Comment: Speci men Type: BLOOD SPECIMENOrdering Facility: [facility] Address: [address] [place] [address] Performed By: #### 5 7021-8 ####[facility]ORYCLIA [id number] [address] [place] Neutrophils (Bld) [#/Vol] 10.43 10*3/uL High 1.45-7.50 [facility] Comment on above: Order Comment: Speci men Type: BLOOD SPECIMENOrdering Facility: [facility] Address: [address] [place] [address] Performed By: #### 5 7021-8 ####[facility] LABORATORYCLIA [id number] [address] Neutrophils/100 WBC (Bld) 78.4 % Normal [facility] Comment on above: Order Comment: Speci men Type: BLOOD SPECIMENOrdering Facility: [facility] Address: [address] [place] [address] Performed By: #### 5 7021-8 ####[facility]ATORYCLIA [id number] [address] [place] Nucleated RBC (Bld) [#/Vol] 10*3/uL Normal <0.01 [facility] Comment on above: Order Comment: Speci men Type: BLOOD SPECIMENOrdering Facility: [facility] Address: [address] [place] [address] Performed By: #### 5 7021-8 ####[facility]ATORYCLIA [id number] [address] Nucleated RBC/100 WBC (Bld) [Ratio] 0.0 /[address] [facility] Comment on above: Order Comment: Speci men Type: BLOOD SPECIMENOrdering Facility: [facility] Address: [address] [place] [address] Performed By: #### 5 7021-8 ####[facility]ATORYCLIA [id number] [address] [place] Platelet mean volume (Bld) [Entitic vol] 11.0 fL Normal 9.0-12.7 [facility] Comment on above: Order Comment: Speci men Type: BLOOD SPECIMENOrdering Facility: [facility] Address: [address] [place] [address] Performed By: #### 5 7021-8 ####[facility]ATORYCLIA [id number] [address] [place] Platelets (Bld) [#/Vol] 381 10*3/uL Normal 150-400 [facility] Comment on above: Order Comment: Speci men Type: BLOOD SPECIMENOrdering Facility: [facility] Address: [address] [place] [address] Performed By: #### 5 7021-8 ####[facility]ATORYCLIA [id number] [address] OF [facility] RBC (Bld) [#/Vol] 3.56 10*6/uL Low 4.20-6.00 [facility] Comment on above: Order Comment: Speci men Type: BLOOD SPECIMENOrdering Facility: [facility] Address: [address] [place] [address] Performed By: #### 5 7021-8 ####[facility]ATORYCLIA [id number] [address] OF [facility] WBC (Bld) [#/Vol] 13.29 10*3/uL High 3.70-11.00 [facility] Comment on above: Order Comment: Speci men Type: BLOOD SPECIMENOrdering Facility: [facility] Address: [address] [place] [address] Performed By: #### 5 7021-8 ####[facility]ATORYCLIA [id number] [address] CONSULT PROGon 07-23-[address] [facility] CONSULT PROG Normal [facility] CSF MANUAL DIFFon 07-23-2021 DIF TTL, CSF [address] [facility] Comment on above: Order Comment: Speci men Type: CEREBROSPINAL FLUIDOrdering Facility: [facility] Address: [address] [place] [address] Performed By: #### L [id number], [id number], 74011-8 ####[facility]ATORYCLIA [id number] [address] [place] LYMPH%, CSF 2 % Low 50-90 [facility] Comment on above: Order Comment: Speci men Type: CEREBROSPINAL FLUIDOrdering Facility: [facility] Address: [address] [place] [address] Performed By: #### L [id number], [id number], 96595-2 ####[facility]ATORYCLIA [id number] [place] [address] [place] MONO%, CSF 9 % Low 10-50 [facility] Comment on above: Order Comment: Speci men Type: CEREBROSPINAL FLUIDOrdering Facility: [facility] Address: [address] [place] [address] Performed By: #### L [id number], [id number], 10002-7 ####[facility]ATORYCLIA [id number] [place] [address] [place] NEUT%, CSF 89 % High 0-3 [facility] Comment on above: Order Comment: Speci men Type: CEREBROSPINAL FLUIDOrdering Facility: [facility] Address: [address] [place] [address] Performed By: #### L [id number], [id number], 36452-5 ####[facility]ATORYCLIA [id number] [address] CSF PATHOLOGIST INTERP (LAB REFLEX ORDER-NO BILL)on 07-23-2021 CSF STAFF REVIEW Negative for maligna nt cells. Numerous bacterial organisms present, cocci in pairs and chains. Recommend correlation with CSF culture results. Normal [facility] Comment on above: Order Comment: Speci men Type: CEREBROSPINAL FLUIDOrdering Facility: [facility] Address: [address] [place] [address] Performed By: #### L [id number], [id number], 85167-6 ####[facility]ATORYCLIA [id number] [address] Pathologist name Reviewed by Amador Stevens MD [facility] Comment on above: Order Comment: Speci men Type: CEREBROSPINAL FLUIDOrdering Facility: [facility] Address: [address] [place] [address] Performed By: #### L [id number], [id number], 03788-9 ####[facility]ATORYCLIA [id number] [address] BRAIN WO IVCONon 07-24-19 CT BRAIN WO IVCON Normal [facility] Cell count panel (CSF)on Clarity (CSF) Clear Normal Clear [facility] Comment on above: Order Comment: Speci men Type: CEREBROSPINAL FLUIDOrdering Facility: [facility] Address: [address] [place] [address] Performed By: #### L [id number], [id number], 41452-9 ####[facility]ATORYCLIA [id number] [address] Clarity (Unsp spec) Not Indicated Normal Clear [facility] Comment on above: Order Comment: Speci men Type: CEREBROSPINAL FLUIDOrdering Facility: [facility] Address: [address] [place] [address] Performed By: #### L [id number], [id number], 73016-4 ####[facility]ATORYCLIA [id number] [address] Color (CSF) Colorless Normal Colorless [facility] Comment on above: Order Comment: Speci men Type: CEREBROSPINAL FLUIDOrdering Facility: [facility] Address: [address] [place] [address] Performed By: #### L [id number], [id number], 79186-8 ####[facility]ATORYCLIA [id number] [address] Color (Spun CSF) Not Indicated Normal Colorless [facility] Comment on above: Order Comment: Speci men Type: CEREBROSPINAL FLUIDOrdering Facility: [facility] Address: [address] [place] [address] Performed By: #### L [id number], [id number], 95933-5 ####[facility]ATORYCLIA [id number] [address] CSF TUBE NUMBER [employer] Container Normal [facility] Comment on above: Order Comment: Speci men Type: CEREBROSPINAL FLUIDOrdering Facility: [facility] Address: [address] [place], [place] [address] Performed By: #### L [id number], [id number], 39068-9 ####[facility]ATORYCLIA [id number] [address] RBC Manual cnt (CSF) [#/Vol] 7 cells/uL High 0-5 [facility] Comment on above: Order Comment: Speci men Type: CEREBROSPINAL FLUIDOrdering Facility: [facility] Address: [address] [place] [address] Performed By: #### L [id number], [id number], 68633-1 ####[facility]ATORYCLIA [id number] [address] WBC Manual cnt (CSF) [#/Vol] 193 cells/uL High 0-5 [facility] Comment on above: Order Comment: Speci men Type: CEREBROSPINAL FLUIDOrdering Facility: [facility] Address: [address] [place] [address] Performed By: #### L [id number], [id number], 37284-0 ####[facility]ATORYCLIA [id number] [address] [place] Glucose CSF-ncon 2 Glucose (CSF) [Mass/Vol] 81 mg/dL High 40-70 [facility] Comment on above: Order Comment: Speci men Type: CEREBROSPINAL FLUIDOrdering Facility: [facility] Address: [address] [place] [address] Result Comment: Lumb ar CSF glucose values of healthy patients are approximately 60% of the plasma values and must always be compared with a concurrently measured plasma value for adequate clinical interpretation.References: 1. Glucose HK (GLUC3) [package insert V 12.0 Lebanese]. [employer], [place], [place]. September 2015. 2. Michelle Moore, Loki H. (2015). Chapter 7: Glucose and Lactate. Marianela Rothman.(eds.), Cerebrospinal Fluid in Clinical Neurology. Bee: [employer]. Performed By: #### 2 342-4, 2880-3 ####[facility]ATORYCLIA [id number] [address] [place] NURSING PROGon 07-23-[address] [facility] NURSING PROG Normal [facility] Prot CSF-mCncon 07-23-2021 Protein (CSF) [Mass/Vol] 68 mg/dL High 15-45 [facility] Comment on above: Order Comment: Speci men Type: CEREBROSPINAL FLUIDOrdering Facility: [facility] Address: [address] [place] [address] Performed By: #### 2 342-4, 2880-3 ####[facility]ATORYCLIA [id number] [address] Urinalysis complete panel (U )on 07-23-2021 Bilirubin Ql (U) Negative Normal Negative [facility] Comment on above: Order Comment: Speci men Type: URINE SPECIMENOrdering Facility: [facility] Address: [address] [place] [address] Performed By: #### 2 4356-8 ####[facility]ATORYCLIA [id number] [address] [place] Clarity (Unsp spec) Clear Normal Clear [facility] Comment on above: Order Comment: Speci men Type: URINE SPECIMENOrdering Facility: [facility] Address: [address] [place] [address] Performed By: #### 2 4356-8 ####[facility]ATORYCLIA [id number] [address] Color (U) Light Yellow Normal yellow [facility] Comment on above: Order Comment: Speci men Type: URINE SPECIMENOrdering Facility: [facility] Address: [address] [place] [address] Performed By: #### 2 4356-8 ####[facility]ATORYCLIA [id number] [address] [place] Glucose Test strip (U) [Mass/Vol] Negative Normal Negative [facility] Comment on above: Order Comment: Speci men Type: URINE SPECIMENOrdering Facility: [facility] Address: [address] [place] [address] Performed By: #### 2 4356-8 ####[facility]ORATORYCLIA [id number] [address] Hemoglobin Ql (U) Negative Normal Negative [facility] Comment on above: Order Comment: Speci men Type: URINE SPECIMENOrdering Facility: [facility] Address: [address] [place] [address] Performed By: #### 2 4356-8 ####[facility] LABORATORYCLIA [id number] [address] [place] Ketones Ql (U) Negative Normal Negative [facility] Comment on above: Order Comment: Speci men Type: URINE SPECIMENOrdering Facility: [facility] Address: [address] [place] [address] Performed By: #### 2 4356-8 ####[facility]ATORYCLIA [id number] [address] [place] Leukocyte esterase Test strip Ql (U) Negative Normal Negative [facility] Comment on above: Order Comment: Speci men Type: URINE SPECIMENOrdering Facility: [facility] Address: [address] [place] [address] Performed By: #### 2 4356-8 ####[facility]ATORYCLIA [id number] [address] [place] Nitrite Ql (U) Negative Normal Negative [facility] Comment on above: Order Comment: Speci men Type: URINE SPECIMENOrdering Facility: [facility] Address: [address] [place] [address] Performed By: #### 2 4356-8 ####[facility]ATORYCLIA [id number] [address] [place] pH (U) 6.0 [pH] Normal 5.0-8.0 [facility] Comment on above: Order Comment: Speci men Type: URINE SPECIMENOrdering Facility: [facility] Address: [address] [place] [address] Performed By: #### 2 4356-8 ####[facility]ATORYCLIA [id number] [address] Protein (U) [Mass/Vol] 1+ Abnormal Negative [facility] Comment on above: Order Comment: Speci men Type: URINE SPECIMENOrdering Facility: [facility] Address: [address] [place] [address] Performed By: #### 2 4356-8 ####[facility]ATORYCLIA [id number] [address] RBC LM.HPF (Urine sed) [#/Area] 0-3 /HPF Normal 0-3 /HPF [facility] Comment on above: Order Comment: Speci men Type: URINE SPECIMENOrdering Facility: [facility] Address: [address] [place] [address] Performed By: #### 2 4356-8 ####[facility]ATORYCLIA [id number] [address] Specific gravity (U) [Rel density] 1.018 Normal 1.005-1.030 [facility] Comment on above: Order Comment: Speci men Type: URINE SPECIMENOrdering Facility: [facility] Address: [address] [place] [address] Performed By: #### 2 4356-8 ####[facility]ATORYCLIA [id number] [address] Urobilinogen Ql (U) Normal Normal Negative [facility] Comment on above: Order Comment: Speci men Type: URINE SPECIMENOrdering Facility: [facility] Address: [address] [place] [address] Performed By: #### 2 4356-8 ####[facility]ATORYCLIA [id number] [address] [place] WBC LM.HPF (Urine sed) [#/Area] 0-5 /HPF Normal 0-5 /HPF [facility] Comment on above: Order Comment: Speci men Type: URINE SPECIMENOrdering Facility: [facility] Address: [address] [place] [address] Performed By: #### 2 4356-8 ####[facility]ATORYCLIA [id number] [address] Vancomycin random [Mass/Vol] on 07-23-2021 Vancomycin [Mass/Vol] 12.9 ug/mL Normal 10.0-20.0 [facility] Comment on above: Order Comment: Speci men Type: BLOOD SPECIMENOrdering Facility: [facility] Address: [address] [place] [address] Result Comment: Refe rence ranges and high/low indicator flags are provided as general guidelines only. The treating physician must determine appropriate target levels/dosing based on the specific clinical situation. Performed By: #### 4 091-5 ####[facility]ATORYCLIA [id number] [address] OF [facility] XR CHEST 1V FRONTALon 2021 XR CHEST 1V FRONTAL Normal [facility] XR CHEST 1V FRONTAL Normal [facility] aPTT PPPon 07-23-2021 aPTT Coag (PPP) [Time] 32.3 s Normal 23.0-32.4 [facility] Comment on above: Order Comment: Speci men Type: BLOOD SPECIMENOrdering Facility: [facility] Address: [address] [address] Performed By: #### 1 4979-9 ####[facility]ATORYCLIA [id number] [address] aPTT Coag (PPP) [Time] 57.9 s High 23.0-32.4 [facility] Comment on above: Order Comment: Speci men Type: BLOOD SPECIMENOrdering Facility: [facility] Address: [address] [place] [address] Performed By: #### 1 4979-9 ####[facility]ATORYCLIA [id number] [place] [address] [place] aPTT Coag (PPP) [Time] 46.3 s High 23.0-32.4 [facility] Comment on above: Order Comment: Speci men Type: BLOOD SPECIMENOrdering Facility: [facility] Address: [address] [place] [address] Performed By: #### 1 4979-9 ####[facility]ATORYCLIA [id number] [place] [address] [place] Basic metabolic 2000 panelon 07-22-2021 Anion gap [Moles/Vol] 8 mmol/L Low 9-18 [facility] Comment on above: Order Comment: Speci men Type: BLOOD SPECIMENOrdering Facility: [facility] Address: [address] [place] [address] Performed By: #### 2 4321-2 ####[facility]ATORYCLIA [id number] [place] [address] [place] Calcium [Mass/Vol] 9.5 mg/dL Normal 8.5-10.2 [facility] Comment on above: Order Comment: Speci men Type: BLOOD SPECIMENOrdering Facility: [facility] Address: [address] [place] [address] Performed By: #### 2 4321-2 ####[facility]ATORYCLIA [id number] [address] [place] Chloride [Moles/Vol] 105 mmol/L Normal 97-105 [facility] Comment on above: Order Comment: Speci men Type: BLOOD SPECIMENOrdering Facility: [facility] Address: [address] [place] [address] Performed By: #### 2 4321-2 ####[facility]ATORYCLIA [id number] [place] [address] [place] CO2 [Moles/Vol] 32 mmol/L High 22-30 [facility] Comment on above: Order Comment: Speci men Type: BLOOD SPECIMENOrdering Facility: [facility] Address: [address] [place] [address] Performed By: #### 2 4321-2 ####[facility]ATORYCLIA [id number] [address] STATES OF [facility] Creatinine [Mass/Vol] 0.75 mg/dL Normal 0.73-1.22 [facility] Comment on above: Order Comment: Shira feldman Type: BLOOD SPECIMENOrdering Facility: [facility] Address: [address] [place] [address] Performed By: #### 2 4321-2 ####[facility]ATORYCLIA [id number] [address] ESTIMATED GLOMERULAR FILTRATION RATE 98 mL/min/1.73m??? Normal >=60 [facility] Comment on above: Order Comment: Shira feldman Type: BLOOD SPECIMENOrdering Facility: [facility] Address: [address] [place] [address] Result Comment: Luzmaria mated Glomerular Filtration Rate [...] GFR. Performed By: #### 2 4321-2 ####[facility]ATORYCLIA [id number] [address] STATES OF [facility] Glucose [Mass/Vol] 128 mg/dL High 74-99 [facility] Comment on above: Order Comment: Shira francia Type: BLOOD SPECIMENOrdering Facility: [facility] Address: [address] [place] [address] Result Comment: The [place] [employer] (ADA) provides guidance for cutoff [...] Standards of Medical Care in Diabetes 2016, [place] [employer]. Diabetes Care. 2016.39(Suppl 1). Performed By: #### 2 4321-2 ####[facility]ATORYCLIA [id number] [address] STATES OF [facility] Potassium [Moles/Vol] 3.7 mmol/L Normal 3.7-5.1 [facility] Comment on above: Order Comment: Speci men Type: BLOOD SPECIMENOrdering Facility: [facility] Address: [address] [place] [address] Performed By: #### 2 4321-2 ####[facility]ATORYCLIA [id number] [address] Sodium [Moles/Vol] 145 mmol/L High 136-144 [facility] Comment on above: Order Comment: Shira feldman Type: BLOOD SPECIMENOrdering Facility: [facility] Address: [address] [place] [address] Performed By: #### 2 4321-2 ####[facility]ATORYCLIA [id number] [address] Urea nitrogen [Mass/Vol] 39 mg/dL High 9-24 [facility] Comment on above: Order Comment: Shira feldman Type: BLOOD SPECIMENOrdering Facility: [facility] Address: [address] [place] [address] Performed By: #### 2 4321-2 ####[facility]ATORYCLIA [id number] [address] [place] CASE MANAGEMon 07-22-[address] [facility] CBC W Auto Differential pane l (Bld)on 07-22-2021 Basophils (Bld) [#/Vol] 0.06 10*3/uL Normal <0.11 [facility] Comment on above: Order Comment: Speci men Type: BLOOD SPECIMENOrdering Facility: [facility] Address: [address] [address] Performed By: #### 5 7021-8 ####[facility]ATORYCLIA [id number] [address] STATES [facility] Basophils/100 WBC (Bld) 0.5 % Normal [facility] Comment on above: Order Comment: Speci men Type: BLOOD SPECIMENOrdering Facility: [facility] Address: [address] [place] [address] Performed By: #### 5 7021-8 ####[facility]ATORYCLIA [id number] [address] Differential cell count method Nom (Bld) Auto Normal [facility] Comment on above: Order Comment: Speci men Type: BLOOD SPECIMENOrdering Facility: [facility] Address: [address] [place] [address] Performed By: #### 5 7021-8 ####[facility]ATORYCLIA [id number] [address] [place] Eosinophils (Bld) [#/Vol] 0.44 10*3/uL Normal <0.46 [facility] Comment on above: Order Comment: Speci men Type: BLOOD SPECIMENOrdering Facility: [facility] Address: [address] [place] [address] Performed By: #### 5 7021-8 ####[facility]ATORYCLIA [id number] [address] Eosinophils/100 WBC (Bld) 3.9 % Normal [facility] Comment on above: Order Comment: Speci men Type: BLOOD SPECIMENOrdering Facility: [facility] Address: [address] [place] [address] Performed By: #### 5 7021-8 ####[facility]ATORYCLIA [id number] [address] [place] Erythrocyte distribution width (RBC) [Ratio] 17.0 % High 11.5-15.0 [facility] Comment on above: Order Comment: Speci men Type: BLOOD SPECIMENOrdering Facility: [facility] Address: [address] [place] [address] Performed By: #### 5 7021-8 ####[facility]ATORYCLIA [id number] [address] Hematocrit (Bld) [Volume fraction] 32.0 % Low 39.0-51.0 [facility] Comment on above: Order Comment: Speci men Type: BLOOD SPECIMENOrdering Facility: [facility] Address: [address] [place] [address] Performed By: #### 5 7021-8 ####[facility]ATORYCLIA [id number] [address] Hemoglobin (Bld) [Mass/Vol] 9.3 g/dL Low 13.0-17.0 [facility] Comment on above: Order Comment: Speci men Type: BLOOD SPECIMENOrdering Facility: [facility] Address: [address] [place] [address] Performed By: #### 5 7021-8 ####[facility]ORYCLIA [id number] [address] IMMATURE GRAN % 0.5 % Normal [facility] Comment on above: Order Comment: Speci men Type: BLOOD SPECIMENOrdering Facility: [facility] Address: [address] [place] [address] Performed By: #### 5 7021-8 ####[facility]ATORYCLIA [id number] [address] IMMATURE GRAN ABS 0.06 k/uL Normal <0.10 [facility] Comment on above: Order Comment: Speci men Type: BLOOD SPECIMENOrdering Facility: [facility] Address: [address] [place] [address] Performed By: #### 5 7021-8 ####[facility]ORYCLIA [id number] [address] Lymphocytes (Bld) [#/Vol] 1.83 10*3/uL Normal 1.00-4.00 [facility] Comment on above: Order Comment: Speci men Type: BLOOD SPECIMENOrdering Facility: [facility] Address: [address] [place] [address] Performed By: #### 5 7021-8 ####[facility]ATORYCLIA [id number] [address] Lymphocytes/100 WBC (Bld) 16.1 % Normal [facility] Comment on above: Order Comment: Speci men Type: BLOOD SPECIMENOrdering Facility: [facility] Address: [address] [place] [address] Performed By: #### 5 7021-8 ####[facility]ATORYCLIA [id number] [address] STATES OF [facility] MCH (RBC) [Entitic mass] 27.0 pg Normal 26.0-34.0 [facility] Comment on above: Order Comment: Speci men Type: BLOOD SPECIMENOrdering Facility: [facility] Address: [address] [place] [address] Performed By: #### 5 7021-8 ####[facility]ATORYCLIA [id number] [address] MCHC (RBC) [Mass/Vol] 29.1 g/dL Low 30.5-36.0 [facility] Comment on above: Order Comment: Speci men Type: BLOOD SPECIMENOrdering Facility: [facility] Address: [address] [place] [address] Performed By: #### 5 7021-8 ####[facility] LABORATORYCLIA [id number] [address] MCV (RBC) [Entitic vol] 92.8 fL Normal 80.0-100.0 [facility] Comment on above: Order Comment: Speci men Type: BLOOD SPECIMENOrdering Facility: [facility] Address: [address] [place] [address] Performed By: #### 5 7021-8 ####[facility]ORATORYCLIA [id number] [place] [address] [place] Monocytes (Bld) [#/Vol] 0.87 10*3/uL High <0.87 [facility] Comment on above: Order Comment: Speci men Type: BLOOD SPECIMENOrdering Facility: [facility] Address: [address] [place] [address] Performed By: #### 5 7021-8 ####[facility]ORATORYCLIA [id number] [place] [address] [place] Monocytes/100 WBC (Bld) 7.6 % Normal [facility] Comment on above: Order Comment: Speci men Type: BLOOD SPECIMENOrdering Facility: [facility] Address: [address] [place] [address] Performed By: #### 5 7021-8 ####[facility]ATORYCLIA [id number] [place] [address] [place] Neutrophils (Bld) [#/Vol] 8.12 10*3/uL High 1.45-7.50 [facility] Comment on above: Order Comment: Speci men Type: BLOOD SPECIMENOrdering Facility: [facility] Address: [address] [place] [address] Performed By: #### 5 7021-8 ####[facility]ATORYCLIA [id number] [address] [place] Neutrophils/100 WBC (Bld) 71.4 % Normal [facility] Comment on above: Order Comment: Speci men Type: BLOOD SPECIMENOrdering Facility: [facility] Address: [address] [place] [address] Performed By: #### 5 7021-8 ####[facility]ATORYCLIA [id number] [place] [address] [place] Nucleated RBC (Bld) [#/Vol] 10*3/uL Normal <0.01 [facility] Comment on above: Order Comment: Speci men Type: BLOOD SPECIMENOrdering Facility: [facility] Address: [address] [address] Performed By: #### 5 7021-8 ####[facility]ATORYCLIA [id number] [address] [place] Nucleated RBC/100 WBC (Bld) [Ratio] 0.0 /[address] [facility] Comment on above: Order Comment: Speci men Type: BLOOD SPECIMENOrdering Facility: [facility] Address: [address] [place] [address] Performed By: #### 5 7021-8 ####[facility]ORATORYCLIA [id number] [address] [place] Platelet mean volume (Bld) [Entitic vol] 10.8 fL Normal 9.0-12.7 [facility] Comment on above: Order Comment: Speci men Type: BLOOD SPECIMENOrdering Facility: [facility] Address: [address] [place] [address] Performed By: #### 5 7021-8 ####[facility]ATORYCLIA [id number] [place] [address] [place] Platelets (Bld) [#/Vol] 362 10*3/uL Normal 150-400 [facility] Comment on above: Order Comment: Speci men Type: BLOOD SPECIMENOrdering Facility: [facility] Address: [address] [place] [address] Performed By: #### 5 7021-8 ####[facility]ATORYCLIA [id number] [place] [address] [place] RBC (Bld) [#/Vol] 3.45 10*6/uL Low 4.20-6.00 [facility] Comment on above: Order Comment: Speci men Type: BLOOD SPECIMENOrdering Facility: [facility] Address: [address] [place] [address] Performed By: #### 5 7021-8 ####[facility]ATORYCLIA [id number] [address] [place] WBC (Bld) [#/Vol] 11.38 10*3/uL High 3.70-11.00 [facility] Comment on above: Order Comment: Speci men Type: BLOOD SPECIMENOrdering Facility: [facility] Address: [address] [place] [address] Performed By: #### 5 7021-8 ####[facility]ATORYCLIA [id number] [address] Magnesium SerPl-mCncon 07-22 Magnesium [Mass/Vol] 2.3 mg/dL Normal 1.7-2.3 [facility] Comment on above: Order Comment: Speci men Type: BLOOD SPECIMENOrdering Facility: [facility] Address: [address] [place] [address] Performed By: #### 1 9123-9, 2777-1, 85210-1 ####[facility]ATORYCLIA [id number] [address] NT-proBNP SerPl-ncon 07-22 Natriuretic peptide.B prohormone N-Terminal [Mass/Vol] 328 pg/mL High <125 [facility] Comment on above: Order Comment: Speci men Type: BLOOD SPECIMENOrdering Facility: [facility] Address: [address] [place] [address] Performed By: #### 1 9123-9, 2777-1, 33926-9 ####[facility]ATORYCLIA [id number] [address] [place] NURSING PROGon 07-22-[address] [facility] NUTRITIONon 07-22-[address] [facility] Phosphate SerPl-mCncon 07-22 Phosphate [Mass/Vol] 3.5 mg/dL Normal 2.7-4.8 [facility] Comment on above: Order Comment: Speci men Type: BLOOD SPECIMENOrdering Facility: [facility] Address: [address] [place] [address] Performed By: #### 1 9123-9, 2777-1, 53615-3 ####[facility]ATORYCLIA [id number] [address] THERAPY NTon 07-22-[address] [facility] THERAPY NT Normal [facility] aPTT PPPon 07-22-2021 aPTT Coag (PPP) [Time] 50.1 s High 23.0-32.4 [facility] Comment on above: Order Comment: Speci men Type: BLOOD SPECIMENOrdering Facility: [facility] Address: [address] [place] [address] Performed By: #### 1 4979-9 ####[facility]ATORYCLIA [id number] [address] [facility] ALLIED HEALTHon 07-21-[address] [facility] Bacteria Spec Resp Culton Bacteria identified Respiratory culture Nom (Unsp spec) Abnormal [facility] Comment on above: Performed By: #### 3 2355-0 ####[facility]ATORYCLIA [id number] [address] [place] Basic metabolic 2000 panelon 07-21-2021 Anion gap [Moles/Vol] 9 mmol/L Normal - [facility] Comment on above: Order Comment: Speci men Type: BLOOD SPECIMENOrdering Facility: [facility] Address: [address] [place] [address] Performed By: #### 1 9123-9, 2777-, 97130-8 ####[facility]ATORYCLIA [id number] [address] [place] Calcium [Mass/Vol] 9.9 mg/dL Normal 8.5-10.2 [facility] Comment on above: Order Comment: Speci men Type: BLOOD SPECIMENOrdering Facility: [facility] Address: [facility] [place] [address] Performed By: #### 1 9123-9, 2777-1, 75739-7 ####[facility]ATORYCLIA [id number] [address] [place] Chloride [Moles/Vol] 103 mmol/L Normal 97-105 [facility] Comment on above: Order Comment: Speci francia Type: BLOOD SPECIMENOrdering Facility: [facility] Address: [address] [place] [address] Performed By: #### 1 9123-9, 2777-1, 15019-9 ####[facility]ATORYCLIA [id number] [address] [place] CO2 [Moles/Vol] 33 mmol/L High 22-30 [facility] Comment on above: Order Comment: Speci men Type: BLOOD SPECIMENOrdering Facility: [facility] Address: [address] [place] [address] Performed By: #### 1 9123-9, 2777-1, 79382-6 ####[facility]CL[facility] [id number] [address] Creatinine [Mass/Vol] 0.80 mg/dL Normal 0.73-1.22 [facility] Comment on above: Order Comment: Speci men Type: BLOOD SPECIMENOrdering Facility: [facility] Address: [address] [place] [address] Performed By: #### 1 9123-9, 2777-1, 90435-3 ####[facility]ATORYCLIA [id number] [address] ESTIMATED GLOMERULAR FILTRATION RATE 96 mL/min/1.73m??? Normal >=60 [facility] Comment on above: Order Comment: Speci men Type: BLOOD SPECIMENOrdering Facility: [facility] Address: [address] [place] [address] Result Comment: Luzmaria mated Glomerular Filtration Rate [...] GFR. Performed By: #### 1 9123-9, 2777-, 71278-7 ####[facility]ATORYCLIA [id number] [place] [address] [place] Glucose [Mass/Vol] 148 mg/dL High 74-99 [facility] Comment on above: Order Comment: Shira feldman Type: BLOOD SPECIMENOrdering Facility: [facility] Address: [address] [place] [address] Result Comment: The [place] [employer] (ADA) provides guidance for cutoff [...] Standards of Medical Care in Diabetes 2016, [place] [employer]. Diabetes Care. 2016.39(Suppl 1). Performed By: #### 1 9123-9, 2777-, 98835-8 ####[facility]CLIA [id number] [place] [address] [place] Potassium [Moles/Vol] 4.1 mmol/L Normal 3.7-5.1 [facility] Comment on above: Order Comment: Shira feldman Type: BLOOD SPECIMENOrdering Facility: [facility] Address: [address] [id number] Performed By: #### 1 9123-9, 2777-, 72310-0 ####[facility]ATORYCLIA [id number] [place] [address] [place] Sodium [Moles/Vol] 145 mmol/L High 136-144 [facility] Comment on above: Order Comment: Shira feldman Type: BLOOD SPECIMENOrdering Facility: [facility] Address: [address] [address] Performed By: #### 1 9123-9, 2777-1, 68195-1 ####[facility]ATORYCLIA [id number] [address] STATES [facility] Urea nitrogen [Mass/Vol] 40 mg/dL High 9-24 [facility] Comment on above: Order Comment: Speci men Type: BLOOD SPECIMENOrdering Facility: [facility] Address: [address] [place] [address] Performed By: #### 1 9123-9, 2777-1, 94591-5 ####[facility]ATORYCLIA [id number] [address] CBC W Auto Differential pane l (Bld)on 07-21-2021 Basophils (Bld) [#/Vol] 0.06 10*3/uL Normal <0.11 [facility] Comment on above: Order Comment: Speci men Type: BLOOD SPECIMENOrdering Facility: [facility] Address: [address] [place] [address] Performed By: #### 5 7021-8 ####[facility]ATORYCLIA [id number] [address] STATES [facility] Basophils/100 WBC (Bld) 0.4 % Normal [facility] Comment on above: Order Comment: Speci men Type: BLOOD SPECIMENOrdering Facility: [facility] Address: [address] [place] [address] Performed By: #### 5 7021-8 ####[facility]ATORYCLIA [id number] [address] Differential cell count method Nom (Bld) Auto Normal [facility] Comment on above: Order Comment: Speci men Type: BLOOD SPECIMENOrdering Facility: [facility] Address: [address] [place] [address] Performed By: #### 5 7021-8 ####[facility]ORYCLIA [id number] [address] [place] Eosinophils (Bld) [#/Vol] 0.04 10*3/uL Normal <0.46 [facility] Comment on above: Order Comment: Speci men Type: BLOOD SPECIMENOrdering Facility: [facility] Address: [address] [place] [address] Performed By: #### 5 7021-8 ####[facility]ATORYCLIA [id number] [address] [place] Eosinophils/100 WBC (Bld) 0.3 % Normal [facility] Comment on above: Order Comment: Speci men Type: BLOOD SPECIMENOrdering Facility: [facility] Address: [address] [place] [address] Performed By: #### 5 7021-8 ####[facility]ATORYCLIA [id number] [address] STATES [facility] Erythrocyte distribution width (RBC) [Ratio] 17.0 % High 11.5-15.0 [facility] Comment on above: Order Comment: Speci men Type: BLOOD SPECIMENOrdering Facility: [facility] Address: [address] [place] [address] Performed By: #### 5 7021-8 ####[facility]ATORYCLIA [id number] [address] [place] Hematocrit (Bld) [Volume fraction] 33.1 % Low 39.0-51.0 [facility] Comment on above: Order Comment: Speci men Type: BLOOD SPECIMENOrdering Facility: [facility] Address: [address] [place] [address] Performed By: #### 5 7021-8 ####[facility]ATORYCLIA [id number] [address] [place] Hemoglobin (Bld) [Mass/Vol] 9.7 g/dL Low 13.0-17.0 [facility] Comment on above: Order Comment: Speci men Type: BLOOD SPECIMENOrdering Facility: [facility] Address: [address] [place] [address] Performed By: #### 5 7021-8 ####[facility]ATORYCLIA [id number] [address] IMMATURE GRAN % 0.5 % Normal [facility] Comment on above: Order Comment: Speci men Type: BLOOD SPECIMENOrdering Facility: [facility] Address: [address] [place] [address] Performed By: #### 5 7021-8 ####[facility]ORYCLIA [id number] [address] IMMATURE GRAN ABS 0.07 k/uL Normal <0.10 [facility] Comment on above: Order Comment: Speci men Type: BLOOD SPECIMENOrdering Facility: [facility] Address: [address] [place] [address] Performed By: #### 5 7021-8 ####[facility]ATORYCLIA [id number] [address] Lymphocytes (Bld) [#/Vol] 1.99 10*3/uL Normal 1.00-4.00 [facility] Comment on above: Order Comment: Speci men Type: BLOOD SPECIMENOrdering Facility: [facility] Address: [address] [place] [address] Performed By: #### 5 7021-8 ####[facility]ATORYCLIA [id number] [address] Lymphocytes/100 WBC (Bld) 13.4 % Normal [facility] Comment on above: Order Comment: Speci men Type: BLOOD SPECIMENOrdering Facility: [facility] Address: [address] [place] [address] Performed By: #### 5 7021-8 ####[facility]ORYCLIA [id number] [address] MCH (RBC) [Entitic mass] 27.2 pg Normal 26.0-34.0 [facility] Comment on above: Order Comment: Speci men Type: BLOOD SPECIMENOrdering Facility: [facility] Address: [address] [place] [address] Performed By: #### 5 7021-8 ####[facility]ATORYCLIA [id number] [address] [place] MCHC (RBC) [Mass/Vol] 29.3 g/dL Low 30.5-36.0 [facility] Comment on above: Order Comment: Speci men Type: BLOOD SPECIMENOrdering Facility: [facility] Address: [address] [place] [address] Performed By: #### 5 7021-8 ####[facility]ORYCLIA [id number] [address] [place] MCV (RBC) [Entitic vol] 92.7 fL Normal 80.0-100.0 [facility] Comment on above: Order Comment: Speci men Type: BLOOD SPECIMENOrdering Facility: [facility] Address: [address] [place] [address] Performed By: #### 5 7021-8 ####[facility]ATORYCLIA [id number] [address] [place] Monocytes (Bld) [#/Vol] 1.10 10*3/uL High <0.87 [facility] Comment on above: Order Comment: Speci men Type: BLOOD SPECIMENOrdering Facility: [facility] Address: [address] [place] [address] Performed By: #### 5 7021-8 ####[facility]ATORYCLIA [id number] [address] STATES [facility] Monocytes/100 WBC (Bld) 7.4 % Normal [facility] Comment on above: Order Comment: Speci men Type: BLOOD SPECIMENOrdering Facility: [facility] Address: [address] [place] [address] Performed By: #### 5 7021-8 ####[facility]ATORYCLIA [id number] [place] [address] [place] Neutrophils (Bld) [#/Vol] 11.61 10*3/uL High 1.45-7.50 [facility] Comment on above: Order Comment: Speci men Type: BLOOD SPECIMENOrdering Facility: [facility] Address: [address] [place] [address] Performed By: #### 5 7021-8 ####[facility]ATORYCLIA [id number] [address] Neutrophils/100 WBC (Bld) 78.0 % Normal [facility] Comment on above: Order Comment: Speci men Type: BLOOD SPECIMENOrdering Facility: [facility] Address: [address] [place] [address] Performed By: #### 5 7021-8 ####[facility]ATORYCLIA [id number] [address] [place] Nucleated RBC (Bld) [#/Vol] 10*3/uL Normal <0.01 [facility] Comment on above: Order Comment: Speci men Type: BLOOD SPECIMENOrdering Facility: [facility] Address: [address] [place] [address] Performed By: #### 5 7021-8 ####[facility]ORYCLIA [id number] [address] Nucleated RBC/100 WBC (Bld) [Ratio] 0.0 /[address] [facility] Comment on above: Order Comment: Speci men Type: BLOOD SPECIMENOrdering Facility: [facility] Address: [address] [place] [address] Performed By: #### 5 7021-8 ####[facility]ATORYCLIA [id number] [place] [address] [place] Platelet mean volume (Bld) [Entitic vol] 10.4 fL Normal 9.0-12.7 [facility] Comment on above: Order Comment: Speci men Type: BLOOD SPECIMENOrdering Facility: [facility] Address: [address] [place] [address] Performed By: #### 5 7021-8 ####[facility]ATORYCLIA [id number] [address] [facility] Platelets (Bld) [#/Vol] 396 10*3/uL Normal 150-400 [facility] Comment on above: Order Comment: Speci men Type: BLOOD SPECIMENOrdering Facility: [facility] Address: [address] [place] [address] Performed By: #### 5 7021-8 ####[facility]ORYCLIA [id number] [address] [facility] RBC (Bld) [#/Vol] 3.57 10*6/uL Low 4.20-6.00 [facility] Comment on above: Order Comment: Speci men Type: BLOOD SPECIMENOrdering Facility: [facility] Address: [address] [place] [address] Performed By: #### 5 7021-8 ####[facility]ORYCLIA [id number] [address] [facility] WBC (Bld) [#/Vol] 14.87 10*3/uL High 3.70-11.00 [facility] Comment on above: Order Comment: Speci men Type: BLOOD SPECIMENOrdering Facility: [facility] Address: [address] [place] [address] Performed By: #### 5 7021-8 ####[facility]ORYCLIA [id number] [address] Gas and Carbon monoxide pane l (BldV)on 07-21-2021 Base excess Calc (BldV) [Moles/Vol] 7 mmol/L High 0-2 [facility] Comment on above: Order Comment: Speci men Type: VENOUS BLOOD SPECIMENOrdering Facility: [facility] Address: [address] [place] [address] Performed By: #### 2 4344-4 ####[facility]ATORYCLIA [id number] [address] Body temperature 98.6 [degF] Normal [facility] Comment on above: Order Comment: Speci men Type: VENOUS BLOOD SPECIMENOrdering Facility: [facility] Address: [address] [place] [address] Performed By: #### 2 4344-4 ####[facility]ATORYCLIA [id number] [address] [place] CALCIUM IONIZED, PH CORRECTED 1.21 mmol/L Normal 1.08-1.30 [facility] Comment on above: Order Comment: Speci men Type: VENOUS BLOOD SPECIMENOrdering Facility: [facility] Address: [address] [place] [address] Performed By: #### 2 4344-4 ####[facility]ORYCLIA [id number] [address] [facility] Calcium.ionized (BldV) [Mass/Vol] 1.23 mmol/L Normal 1.08-1.30 [facility] Comment on above: Order Comment: Speci men Type: VENOUS BLOOD SPECIMENOrdering Facility: [facility] Address: [address] [place] [address] Performed By: #### 2 4344-4 ####[facility]ATORYCLIA [id number] [address] [place] Carboxyhemoglobin (BldV) [Mass fraction] 2.3 % High 0.0-2.0 [facility] Comment on above: Order Comment: Speci men Type: VENOUS BLOOD SPECIMENOrdering Facility: [facility] Address: [address] [place] [address] Result Comment: Carb oxyhemoglobin Reference Range for Smokers: 2.0-8.0% Performed By: #### 2 4344-4 ####[facility]ATORYCLIA [id number] [address] [place] CO2 (BldV) [Partial pressure] 58 mm[Hg] High 42-55 [facility] Comment on above: Order Comment: Speci men Type: VENOUS BLOOD SPECIMENOrdering Facility: [facility] Address: [address] [place] [address] Performed By: #### 2 4344-4 ####[facility]ORYCLIA [id number] [place] [address] [place] CO2 [Moles/Vol] 31 mmol/L High 25-29 [facility] Comment on above: Order Comment: Speci men Type: VENOUS BLOOD SPECIMENOrdering Facility: [facility] Address: [address] [place] [address] Performed By: #### 2 4344-4 ####[facility]ORYCLIA [id number] [place] [address] [place] Glucose [Mass/Vol] 146 mg/dL High 60-105 [facility] Comment on above: Order Comment: Speci men Type: VENOUS BLOOD SPECIMENOrdering Facility: [facility] Address: [address] [place] [address] Performed By: #### 2 4344-4 ####[facility]ORYCLIA [id number] [place] [address] [place] HCO3 (Bld) [Moles/Vol] 33 mmol/L High 24-28 [facility] Comment on above: Order Comment: Speci men Type: VENOUS BLOOD SPECIMENOrdering Facility: [facility] Address: [address] [place] [address] Performed By: #### 2 4344-4 ####[facility]ORYCLIA [id number] [place] [address] [place] Hematocrit (Bld) [Volume fraction] 30.1 % Low 39.0-51.0 [facility] Comment on above: Order Comment: Speci men Type: VENOUS BLOOD SPECIMENOrdering Facility: [facility] Address: [address] [place] [address] Performed By: #### 2 4344-4 ####[facility]ORYCLIA [id number] [place] [address] [place] Hemoglobin (Bld) [Mass/Vol] 9.7 g/dL Low 13.0-17.0 [facility] Comment on above: Order Comment: Speci men Type: VENOUS BLOOD SPECIMENOrdering Facility: [facility] Address: [address] [address] Performed By: #### 2 4344-4 ####[facility]ORATORYCLIA [id number] [address] [place] Methemoglobin (Bld) [Mass fraction] % Normal 0.0-1.5 [facility] Comment on above: Order Comment: Speci men Type: VENOUS BLOOD SPECIMENOrdering Facility: [facility] Address: [address] [address] Performed By: #### 2 4344-4 ####[facility] LABORATORYCLIA [id number] [address] O2 THERAPY [place] = Nasal Cannula Normal [facility] Comment on above: Order Comment: Speci men Type: VENOUS BLOOD SPECIMENOrdering Facility: [facility] Address: [address] [address] Performed By: #### 2 4344-4 ####[facility] LABORATORYCLIA [id number] [address] [place] Oxygen (BldV) [Partial pressure] 64 mm[Hg] High 35-45 [facility] Comment on above: Order Comment: Speci men Type: VENOUS BLOOD SPECIMENOrdering Facility: [facility] Address: [address] [address] Performed By: #### 2 4344-4 ####[facility]ORATORYCLIA [id number] 11 [address] [place] Oxygen saturation in Blood 90 % High 60-85 [facility] Comment on above: Order Comment: Speci men Type: VENOUS BLOOD SPECIMENOrdering Facility: [facility] Address: [address] [address] Performed By: #### 2 4344-4 ####[facility] LABORATORYCLIA [id number] [address] [place] Oxyhemoglobin (BldV) [Mass fraction] 87 % High 60-85 [facility] Comment on above: Order Comment: Speci men Type: VENOUS BLOOD SPECIMENOrdering Facility: [facility] Address: [address] [place] [address] Performed By: #### 2 4344-4 ####[facility]ATORYCLIA [id number] [place] [address] [place] pH (BldV) 7.38 [pH] Normal 7.32-7.42 [facility] Comment on above: Order Comment: Speci men Type: VENOUS BLOOD SPECIMENOrdering Facility: [facility] Address: [address] [place] [address] Performed By: #### 2 4344-4 ####[facility]ATORYCLIA [id number] [place] [address] [place] Potassium [Moles/Vol] 3.8 mmol/L Normal 3.5-5.0 [facility] Comment on above: Order Comment: Speci men Type: VENOUS BLOOD SPECIMENOrdering Facility: [facility] Address: [address] [place] [address] Performed By: #### 2 4344-4 ####[facility]ATORYCLIA [id number] [address] [place] Sodium [Moles/Vol] 145 mmol/L High 136-144 [facility] Comment on above: Order Comment: Speci men Type: VENOUS BLOOD SPECIMENOrdering Facility: [facility] Address: [address] [place] [address] Performed By: #### 2 4344-4 ####[facility]ATORYCLIA [id number] [place] [address] [place] Base excess Calc (BldV) [Moles/Vol] 8 mmol/L High 0-2 [facility] Comment on above: Order Comment: Speci men Type: VENOUS BLOOD SPECIMENOrdering Facility: [facility] Address: [address] [place] [address] Performed By: #### 2 4344-4 ####[facility]ATORYCLIA [id number] [address] Body temperature 100.22 [degF] Normal [facility] Comment on above: Order Comment: Speci men Type: VENOUS BLOOD SPECIMENOrdering Facility: [facility] Address: [address] [place] [address] Performed By: #### 2 4344-4 ####[facility]ATORYCLIA [id number] [address] OF [facility] CALCIUM IONIZED, PH CORRECTED 1.25 mmol/L Normal 1.08-1.30 [facility] Comment on above: Order Comment: Speci men Type: VENOUS BLOOD SPECIMENOrdering Facility: [facility] Address: [address] [place] [address] Performed By: #### 2 4344-4 ####[facility]ATORYCLIA [id number] [address] STATES [facility] Calcium.ionized (BldV) [Mass/Vol] 1.24 mmol/L Normal 1.08-1.30 [facility] Comment on above: Order Comment: Speci men Type: VENOUS BLOOD SPECIMENOrdering Facility: [facility] Address: [address] [place] [address] Performed By: #### 2 4344-4 ####[facility]ATORYCLIA [id number] [address] [place] Carboxyhemoglobin (BldV) [Mass fraction] 2.5 % High 0.0-2.0 [facility] Comment on above: Order Comment: Speci men Type: VENOUS BLOOD SPECIMENOrdering Facility: [facility] Address: [address] [place] [address] Result Comment: Carb oxyhemoglobin Reference Range for Smokers: 2.0-8.0% Performed By: #### 2 4344-4 ####[facility]ATORYCLIA [id number] [address] [place] CO2 (BldV) [Partial pressure] 53 mm[Hg] Normal 42-55 [facility] Comment on above: Order Comment: Speci men Type: VENOUS BLOOD SPECIMENOrdering Facility: [facility] Address: [address] [place] [address] Performed By: #### 2 4344-4 ####[facility]ATORYCLIA [id number] [address] [place] CO2 [Moles/Vol] 31 mmol/L High 25-29 [facility] Comment on above: Order Comment: Speci men Type: VENOUS BLOOD SPECIMENOrdering Facility: [facility] Address: [address] [place] [address] Performed By: #### 2 4344-4 ####[facility]ORYCLIA [id number] [address] [place] CO2 adjusted to patient's actual temperature (BldV) [Partial pressure] 56 mmHg High 42-55 [facility] Comment on above: Order Comment: Speci men Type: VENOUS BLOOD SPECIMENOrdering Facility: [facility] Address: [address] [place] [address] Performed By: #### 2 4344-4 ####[facility]ATORYCLIA [id number] [place] [address] [place] Glucose [Mass/Vol] 131 mg/dL High 60-105 [facility] Comment on above: Order Comment: Speci men Type: VENOUS BLOOD SPECIMENOrdering Facility: [facility] Address: [address] [place] [address] Performed By: #### 2 4344-4 ####[facility]ATORYCLIA [id number] [place] [address] [place] HCO3 (Bld) [Moles/Vol] 33 mmol/L High 24-28 [facility] Comment on above: Order Comment: Speci men Type: VENOUS BLOOD SPECIMENOrdering Facility: [facility] Address: [address] [place] [address] Performed By: #### 2 4344-4 ####[facility]ORATORYCLIA [id number] [place] [address] [place] Hematocrit (Bld) [Volume fraction] 30.8 % Low 39.0-51.0 [facility] Comment on above: Order Comment: Speci men Type: VENOUS BLOOD SPECIMENOrdering Facility: [facility] Address: [address] [address] Performed By: #### 2 4344-4 ####[facility]ATORYCLIA [id number] [address] [place] Hemoglobin (Bld) [Mass/Vol] 10.0 g/dL Low 13.0-17.0 [facility] Comment on above: Order Comment: Speci men Type: VENOUS BLOOD SPECIMENOrdering Facility: [facility] Address: [address] [place] [address] Performed By: #### 2 4344-4 ####[facility]ATORYCLIA [id number] [address] [place] Methemoglobin (Bld) [Mass fraction] % Normal 0.0-1.5 [facility] Comment on above: Order Comment: Speci men Type: VENOUS BLOOD SPECIMENOrdering Facility: [facility] Address: [address] [place] [address] Performed By: #### 2 4344-4 ####[facility]ATORYCLIA [id number] [address] [place] O2 THERAPY NC = Nasal Cannula Normal [facility] Comment on above: Order Comment: Speci men Type: VENOUS BLOOD SPECIMENOrdering Facility: [facility] Address: [address] [place] [address] Performed By: #### 2 4344-4 ####[facility]ORYCLIA [id number] [address] [place] Oxygen (BldV) [Partial pressure] 58 mm[Hg] High 35-45 [facility] Comment on above: Order Comment: Speci men Type: VENOUS BLOOD SPECIMENOrdering Facility: [facility] Address: [address] [address] Performed By: #### 2 4344-4 ####[facility]ATORYCLIA [id number] [address] [place] Oxygen adjusted to patient's actual temperature (BldV) [Partial pressure] 61 mmHg High 35-45 [facility] Comment on above: Order Comment: Speci men Type: VENOUS BLOOD SPECIMENOrdering Facility: [facility] Address: [address] [place] [address] Performed By: #### 2 4344-4 ####[facility]ATORYCLIA [id number] [address] [place] Oxygen saturation in Blood 88 % High 60-85 [facility] Comment on above: Order Comment: Speci men Type: VENOUS BLOOD SPECIMENOrdering Facility: [facility] Address: [address] [place] [address] Performed By: #### 2 4344-4 ####[facility]ATORYCLIA [id number] [address] Oxyhemoglobin (BldV) [Mass fraction] 85 % Normal 60-85 [facility] Comment on above: Order Comment: Speci men Type: VENOUS BLOOD SPECIMENOrdering Facility: [facility] Address: [address] [place] [address] Performed By: #### 2 4344-4 ####[facility]ATORYCLIA [id number] [address] [place] pH (BldV) 7.41 [pH] Normal 7.32-7.42 [facility] Comment on above: Order Comment: Speci men Type: VENOUS BLOOD SPECIMENOrdering Facility: [facility] Address: [address] [place] [address] Performed By: #### 2 4344-4 ####[facility]ATORYCLIA [id number] [address] STATES [facility] pH adjusted to patient's actual temperature (BldV) 7.40 Normal 7.32-7.42 [facility] Comment on above: Order Comment: Speci men Type: VENOUS BLOOD SPECIMENOrdering Facility: [facility] Address: [address] [address] Performed By: #### 2 4344-4 ####[facility]ATORYCLIA [id number] [place] [address] [place] Potassium [Moles/Vol] 4.0 mmol/L Normal 3.5-5.0 [facility] Comment on above: Order Comment: Speci men Type: VENOUS BLOOD SPECIMENOrdering Facility: [facility] Address: [address] [place] [address] Performed By: #### 2 4344-4 ####[facility]ORYCLIA [id number] [place] [address] [place] Sodium [Moles/Vol] 146 mmol/L High 136-144 [facility] Comment on above: Order Comment: Speci men Type: VENOUS BLOOD SPECIMENOrdering Facility: [facility] Address: [address] [place] [address] Performed By: #### 2 4344-4 ####[facility]ATORYCLIA [id number] [place] [address] [place] Magnesium SerPl-mCncon 07-21 Magnesium [Mass/Vol] 2.5 mg/dL High 1.7-2.3 [facility] Comment on above: Order Comment: Speci men Type: BLOOD SPECIMENOrdering Facility: [facility] Address: [address] [place] [address] Performed By: #### 1 9123-9, 2777-1, 32198-2 ####[facility]ORYCLIA [id number] [place] [address] [place] NURSING PROGon 07-21-[address] [facility] Phosphate SerPl-mCncon 07-21 Phosphate [Mass/Vol] 3.7 mg/dL Normal 2.7-4.8 [facility] Comment on above: Order Comment: Speci men Type: BLOOD SPECIMENOrdering Facility: [facility] Address: [address] [place] [address] Performed By: #### 1 9123-9, 2777-1, 49650-2 ####[facility]ORYCLIA [id number] [address] OF [facility] THERAPY NTon 07-21-[address] [facility] XR CHEST 1V FRONTALon 2021 XR CHEST 1V FRONTAL Normal [facility] aPTT PPPon 07-21-2021 aPTT Coag (PPP) [Time] 53.0 s High 23.0-32.4 [facility] Comment on above: Order Comment: Speci men Type: BLOOD SPECIMENOrdering Facility: [facility] Address: [address] [place] [address] Performed By: #### 1 4979-9 ####[facility]ORYCLIA [id number] [address] [place] ALLIED HEALTHon 07-20-[address] [facility] Basic metabolic 2000 panelon 07-20-2021 Anion gap [Moles/Vol] 8 mmol/L Low 9-18 [facility] Comment on above: Order Comment: Speci men Type: BLOOD SPECIMENOrdering Facility: [facility] Address: [address] [place] [address] Performed By: #### 2 4321-2, , 2776-05 ####[facility]ORYCLIA [id number] [place] [address] [place] [facility] Calcium [Mass/Vol] 9.7 mg/dL Normal 8.5-10.2 [facility] Comment on above: Order Comment: Speci men Type: BLOOD SPECIMENOrdering Facility: [facility] Address: [address] [place] [address] Performed By: #### 2 4321-2, , 2777 ####[facility]ATORYCLIA [id number] [place] [address] [place] Chloride [Moles/Vol] 104 mmol/L Normal 97-105 [facility] Comment on above: Order Comment: Speci men Type: BLOOD SPECIMENOrdering Facility: [facility] Address: [address] [place] [address] Performed By: #### 2 4321-2, , 2776-05 ####[facility] [id number] [address] STATES OF [facility] CO2 [Moles/Vol] 34 mmol/L High 22-30 [facility] Comment on above: Order Comment: Speci men Type: BLOOD SPECIMENOrdering Facility: [facility] Address: [address] [place] [address] Performed By: #### 2 4321-2, , 2776-05 ####[facility] [id number] [address] Creatinine [Mass/Vol] 0.76 mg/dL Normal 0.73-1.22 [facility] Comment on above: Order Comment: Speci men Type: BLOOD SPECIMENOrdering Facility: [facility] Address: [address] [place] [address] Performed By: #### 2 4321-2, , 2776-05 ####[facility] H[facility]PITALIA [id number] [address] ESTIMATED GLOMERULAR FILTRATION RATE 97 mL/min/1.73m??? Normal >=60 [facility] Comment on above: Order Comment: Speci men Type: BLOOD SPECIMENOrdering Facility: [facility] Address: [address] [place] [address] Result Comment: Luzmaria mated Glomerular Filtration Rate [...] By: #### 2 4321-2, , 2776-05 ####[facility]ATORYCLIA [id number] [place] [address] [place] Glucose [Mass/Vol] 123 mg/dL High 74-99 [facility] Comment on above: Order Comment: Speci men Type: BLOOD SPECIMENOrdering Facility: [facility] Address: [address] [place], [place] [id number] Result Comment: The [place] [employer] (ADA) provides guidance for cutoff [...] Standards of Medical Care in Diabetes 2016, [place] [employer]. Diabetes Care. 2016.39(Suppl 1). Performed By: #### 2 4321-2, , 2776-05 ####[facility]ATORYCLIA [id number] [place] [address] [place] Potassium [Moles/Vol] 4.4 mmol/L Normal 3.7-5.1 [facility] Comment on above: Order Comment: Shira francia Type: BLOOD SPECIMENOrdering Facility: [facility] Address: [address] [place], [place] [address] Performed By: #### 2 4321-2, , 2776-05 ####[facility]ATORYCLIA [id number] [place] [address] [place] Sodium [Moles/Vol] 146 mmol/L High 136-144 [facility] Comment on above: Order Comment: Speci men Type: BLOOD SPECIMENOrdering Facility: [facility] Address: [address] [place], [place] [phone] Performed By: #### 2 4321-2, , 2776-05 ####[facility]ATORYCLIA [id number] [place] [address] [place] Urea nitrogen [Mass/Vol] 38 mg/dL High 9-24 [facility] Comment on above: Order Comment: Speci men Type: BLOOD SPECIMENOrdering Facility: [facility] Address: [address] [place] [address] Performed By: #### 2 4321-2, 05344-8, 2777-1 ####[facility]ORYCLIA [id number] [address] [place] CASE MANAGEMon 07-20-[address] [facility] CBC W Auto Differential pane l (Bld)on 07-20-2021 Basophils (Bld) [#/Vol] 0.05 10*3/uL Normal <0.11 [facility] Comment on above: Order Comment: Speci men Type: BLOOD SPECIMENOrdering Facility: [facility] Address: [address] [place] [address] Performed By: #### 5 7021-8 ####[facility]ORYCLIA [id number] [place] [address] [place] Basophils/100 WBC (Bld) 0.5 % Normal [facility] Comment on above: Order Comment: Speci men Type: BLOOD SPECIMENOrdering Facility: [facility] Address: [address] [place] [address] Performed By: #### 5 7021-8 ####[facility]ORYCLIA [id number] [address] [place] Differential cell count method Nom (Bld) Auto Normal [facility] Comment on above: Order Comment: Speci men Type: BLOOD SPECIMENOrdering Facility: [facility] Address: [address] [place] [address] Performed By: #### 5 7021-8 ####[facility]ORYCLIA [id number] [place] [address] [place] Eosinophils (Bld) [#/Vol] 0.43 10*3/uL Normal <0.46 [facility] Comment on above: Order Comment: Speci men Type: BLOOD SPECIMENOrdering Facility: [facility] Address: [address] [place] [address] Performed By: #### 5 7021-8 ####[facility]ORYCLIA [id number] [address] Eosinophils/100 WBC (Bld) 4.1 % Normal [facility] Comment on above: Order Comment: Speci men Type: BLOOD SPECIMENOrdering Facility: [facility] Address: [address] [place] [address] Performed By: #### 5 7021-8 ####[facility]ORYCLIA [id number] [address] Erythrocyte distribution width (RBC) [Ratio] 16.7 % High 11.5-15.0 [facility] Comment on above: Order Comment: Speci men Type: BLOOD SPECIMENOrdering Facility: [facility] Address: [address] [place] [address] Performed By: #### 5 7021-8 ####[facility]ORYCLIA [id number] [address] Hematocrit (Bld) [Volume fraction] 33.0 % Low 39.0-51.0 [facility] Comment on above: Order Comment: Speci men Type: BLOOD SPECIMENOrdering Facility: [facility] Address: [address] [place] [address] Performed By: #### 5 7021-8 ####[facility]ORYCLIA [id number] [address] Hemoglobin (Bld) [Mass/Vol] 9.7 g/dL Low 13.0-17.0 [facility] Comment on above: Order Comment: Speci men Type: BLOOD SPECIMENOrdering Facility: [facility] Address: [address] [place] [address] Performed By: #### 5 7021-8 ####[facility]ORYCLIA [id number] [address] IMMATURE GRAN % 0.4 % Normal [facility] Comment on above: Order Comment: Speci men Type: BLOOD SPECIMENOrdering Facility: [facility] Address: [address] [place] [address] Performed By: #### 5 7021-8 ####[facility]ORYCLIA [id number] [address] IMMATURE GRAN ABS 0.04 k/uL Normal <0.10 [facility] Comment on above: Order Comment: Speci men Type: BLOOD SPECIMENOrdering Facility: [facility] Address: [address] [place] [address] Performed By: #### 5 7021-8 ####[facility]ORYCLIA [id number] [address] Lymphocytes (Bld) [#/Vol] 1.99 10*3/uL Normal 1.00-4.00 [facility] Comment on above: Order Comment: Speci men Type: BLOOD SPECIMENOrdering Facility: [facility] Address: [address] [place] [address] Performed By: #### 5 7021-8 ####[facility]ORYCLIA [id number] [address] Lymphocytes/100 WBC (Bld) 18.8 % Normal [facility] Comment on above: Order Comment: Speci men Type: BLOOD SPECIMENOrdering Facility: [facility] Address: [address] [place] [address] Performed By: #### 5 7021-8 ####[facility]ORYCLIA [id number] [address] [place] MCH (RBC) [Entitic mass] 27.8 pg Normal 26.0-34.0 [facility] Comment on above: Order Comment: Speci men Type: BLOOD SPECIMENOrdering Facility: [facility] Address: [address] [place] [address] Performed By: #### 5 7021-8 ####[facility]ORYCLIA [id number] [address] STATES OF [facility] MCHC (RBC) [Mass/Vol] 29.4 g/dL Low 30.5-36.0 [facility] Comment on above: Order Comment: Speci men Type: BLOOD SPECIMENOrdering Facility: [facility] Address: [address] [place] [address] Performed By: #### 5 7021-8 ####[facility]ORYCLIA [id number] [address] MCV (RBC) [Entitic vol] 94.6 fL Normal 80.0-100.0 [facility] Comment on above: Order Comment: Speci men Type: BLOOD SPECIMENOrdering Facility: [facility] Address: [address] [place] [address] Performed By: #### 5 7021-8 ####[facility]ORYCLIA [id number] [address] [place] Monocytes (Bld) [#/Vol] 0.82 10*3/uL Normal <0.87 [facility] Comment on above: Order Comment: Speci men Type: BLOOD SPECIMENOrdering Facility: [facility] Address: [address] [place] [address] Performed By: #### 5 7021-8 ####[facility]ORYCLIA [id number] [address] Monocytes/100 WBC (Bld) 7.8 % Normal [facility] Comment on above: Order Comment: Speci men Type: BLOOD SPECIMENOrdering Facility: [facility] Address: [address] [place] [address] Performed By: #### 5 7021-8 ####[facility]ORYCLIA [id number] [address] [place] Neutrophils (Bld) [#/Vol] 7.23 10*3/uL Normal 1.45-7.50 [facility] Comment on above: Order Comment: Speci men Type: BLOOD SPECIMENOrdering Facility: [facility] Address: [address] [address] Performed By: #### 5 7021-8 ####[facility]ORYCLIA [id number] [address] Neutrophils/100 WBC (Bld) 68.4 % Normal [facility] Comment on above: Order Comment: Speci men Type: BLOOD SPECIMENOrdering Facility: [facility] Address: [address] [place] [address] Performed By: #### 5 7021-8 ####[facility]ORYCLIA [id number] [address] [place] Nucleated RBC (Bld) [#/Vol] 10*3/uL Normal <0.01 [facility] Comment on above: Order Comment: Speci men Type: BLOOD SPECIMENOrdering Facility: [facility] Address: [address] [place] [address] Performed By: #### 5 7021-8 ####[facility]ORYCLIA [id number] [address] [place] Nucleated RBC/100 WBC (Bld) [Ratio] 0.0 /[address] [facility] Comment on above: Order Comment: Speci men Type: BLOOD SPECIMENOrdering Facility: [facility] Address: [address] [place] [address] Performed By: #### 5 7021-8 ####[facility]ORYCLIA [id number] [address] [place] Platelet mean volume (Bld) [Entitic vol] 10.5 fL Normal 9.0-12.7 [facility] Comment on above: Order Comment: Speci men Type: BLOOD SPECIMENOrdering Facility: [facility] Address: [address] [place] [address] Performed By: #### 5 7021-8 ####[facility]ORYCLIA [id number] [place] [address] [place] Platelets (Bld) [#/Vol] 400 10*3/uL Normal 150-400 [facility] Comment on above: Order Comment: Speci men Type: BLOOD SPECIMENOrdering Facility: [facility] Address: [address] [place] [address] Performed By: #### 5 7021-8 ####[facility]ORATORYCLIA [id number] [address] [place] RBC (Bld) [#/Vol] 3.49 10*6/uL Low 4.20-6.00 [facility] Comment on above: Order Comment: Speci men Type: BLOOD SPECIMENOrdering Facility: [facility] Address: [address] [place] [address] Performed By: #### 5 7021-8 ####[facility] LABORATORYCLIA [id number] [address] WBC (Bld) [#/Vol] 10.56 10*3/uL Normal 3.70-11.00 [facility] Comment on above: Order Comment: Speci men Type: BLOOD SPECIMENOrdering Facility: [facility] Address: [address] [place] [address] Performed By: #### 5 7021-8 ####[facility]ATORYCLIA [id number] [address] CONSULT PROGon 07-20-[address] [facility] CT BRAIN WO IVCONon 07-21-[address] BRAIN WO IVCON Normal [facility] Magnesium SerPl-mCncon 07-20 Magnesium [Mass/Vol] 2.4 mg/dL High 1.7-2.3 [facility] Comment on above: Order Comment: Speci men Type: BLOOD SPECIMENOrdering Facility: [facility] Address: [address] [place] [address] Performed By: #### 2 4321-2, 60241-3, 2777-1 ####[facility]ATORYCLIA [id number] [address] [place] NUTRITIONon 07-20-[address] [facility] Phosphate SerPl-mCncon 07-20 Phosphate [Mass/Vol] 4.1 mg/dL Normal 2.7-4.8 [facility] Comment on above: Order Comment: Speci men Type: BLOOD SPECIMENOrdering Facility: [facility] Address: [address] [place] [address] Performed By: #### 2 4321-2, 88268-3, 2777-1 ####[facility]ATORYCLIA [id number] [place] [address] [place] aPTT PPPon 07-20-2021 aPTT Coag (PPP) [Time] 53.6 s High 23.0-32.4 [facility] Comment on above: Order Comment: Speci men Type: BLOOD SPECIMENOrdering Facility: [facility] Address: [address] [place] [address] Performed By: #### 1 4979-9 ####[facility]ATORYCLIA [id number] [place] [address] [place] Bacteria CSF Culton 07-20-19 22 Bacteria identified Cx Nom (CSF) CULTURE, CSF: No growth 14 days GRAM STAIN: No organisms seen No Polymorphonuclear Leukocytes Rare Mononuclear cells Gram stain performed on cytospun specimen. Normal [facility] Comment on above: Performed By: #### 6 06-4 ####[facility]ATORYCLIA [id number] [place] [address] [place] CONSULT PROGon 07-19-[address] [facility] CSF MANUAL DIFFon 07-19-2021 DIF TTL, CSF [address] [facility] Comment on above: Order Comment: Speci men Type: CEREBROSPINAL FLUIDOrdering Facility: [facility] Address: [address] [place] [address] Performed By: #### L [id number], 14430-6, [id number] ####[facility]ATORYCLIA [id number] [place] [address] [place] EOSIN%, CSF 1 % Normal [facility] Comment on above: Order Comment: Speci men Type: CEREBROSPINAL FLUIDOrdering Facility: [facility] Address: [address] [address] Performed By: #### L [id number], 35792-5, [id number] ####[facility]ORYCLIA [id number] [place] [address] [place] LYMPH%, CSF 67 % Normal 50-90 [facility] Comment on above: Order Comment: Speci men Type: CEREBROSPINAL FLUIDOrdering Facility: [facility] Address: [address] [place] [address] Performed By: #### L [id number], 68093-1, [id number] ####[facility]ORYCLIA [id number] [address] [place] MACRO%, CSF 1 % High <1 [facility] Comment on above: Order Comment: Speci men Type: CEREBROSPINAL FLUIDOrdering Facility: [facility] Address: [address] [place] [address] Performed By: #### L [id number], 05325-6, [id number] ####[facility]ATORYCLIA [id number] [address] [place] MONO%, CSF 18 % Normal 10-50 [facility] Comment on above: Order Comment: Speci men Type: CEREBROSPINAL FLUIDOrdering Facility: [facility] Address: [address] [address] Performed By: #### L [id number], 65908-8, [id number] ####[facility]ORYCLIA [id number] [address] [place] NEUT%, CSF 11 % High 0-3 [facility] Comment on above: Order Comment: Speci men Type: CEREBROSPINAL FLUIDOrdering Facility: [facility] Address: [facility] [address] Performed By: #### L [id number], 23545-9, [id number] ####[facility]ORYCLIA [id number] [address] [place] OTHER CL%, CSF 2 % Normal [facility] Comment on above: Order Comment: Speci men Type: CEREBROSPINAL FLUIDOrdering Facility: [facility] Address: [address] [place] [address] Result Comment: Path review to follow. Performed By: #### L [id number], 90757-9, [id number] ####[facility]ATORYCLIA [id number] [address] [place] CSF PATHOLOGIST INTERP (LAB REFLEX ORDER-NO BILL)on 07-19-2021 CSF STAFF REVIEW Normal [facility] Comment on above: Order Comment: Speci men Type: CEREBROSPINAL FLUIDOrdering Facility: [facility] Address: [address] [place] [address] Performed By: #### L [id number], 69073-6, [id number] ####[facility]ATORYCLIA [id number] [address] Pathologist name Reviewed by Wing Cummings MD [facility] Comment on above: Order Comment: Speci men Type: CEREBROSPINAL FLUIDOrdering Facility: [facility] Address: [address] [place] [address] Performed By: #### L [id number], 52982-5, [id number] ####[facility]ATORYCLIA [id number] [address] Cell count panel (CSF)on Clarity (CSF) Clear Normal Clear [facility] Comment on above: Order Comment: Speci men Type: CEREBROSPINAL FLUIDOrdering Facility: [facility] Address: [address] [place] [address] Performed By: #### L [id number], 70261-2, [id number] ####[facility]ATORYCLIA [id number] [address] Clarity (Unsp spec) Not Indicated Normal Clear [facility] Comment on above: Order Comment: Speci men Type: CEREBROSPINAL FLUIDOrdering Facility: [facility] Address: [address] [address] Performed By: #### L [id number], 46863-5, [id number] ####[facility]ORYCLIA [id number] [address] Color (CSF) Colorless Normal Colorless [facility] Comment on above: Order Comment: Speci men Type: CEREBROSPINAL FLUIDOrdering Facility: [facility] Address: [address] [place] [address] Performed By: #### L [id number], 63382-7, [id number] ####[facility]ORYCLIA [id number] [address] OF [facility] Color (Spun CSF) Not Indicated Normal Colorless [facility] Comment on above: Order Comment: Speci men Type: CEREBROSPINAL FLUIDOrdering Facility: [facility] Address: [address] [place] [address] Performed By: #### L HM6677, 90224-2, [id number] ####[facility]ATORYCLIA [id number] [address] CSF TUBE NUMBER [employer] Container Normal [facility] Comment on above: Order Comment: Speci men Type: CEREBROSPINAL FLUIDOrdering Facility: [facility] Address: [address] [place] [address] Performed By: #### L [id number], 84625-4, [id number] ####[facility]ORYCLIA [id number] [address] STATES OF [facility] RBC Manual cnt (CSF) [#/Vol] 0 cells/uL Normal 0-5 [facility] Comment on above: Order Comment: Speci men Type: CEREBROSPINAL FLUIDOrdering Facility: [facility] Address: [address] [place] [address] Performed By: #### L [id number], 07061-8, [id number] ####[facility]ORYCLIA [id number] [address] OF [facility] WBC Manual cnt (CSF) [#/Vol] 2 cells/uL Normal 0-5 [facility] Comment on above: Order Comment: Speci men Type: CEREBROSPINAL FLUIDOrdering Facility: [facility] Address: [address] [place] [address] Performed By: #### L [id number], 96588-4, [id number] ####[facility]ATORYCLIA [id number] [address] [place] Glucose [facility] Glucose (CSF) [Mass/Vol] 69 mg/dL Normal 40-70 [facility] Comment on above: Order Comment: Speci men Type: CEREBROSPINAL FLUIDOrdering Facility: [facility] Address: [address] [place] [address] Result Comment: Lumb ar CSF glucose values of healthy patients are approximately 60% of the plasma values and must always be compared with a concurrently measured plasma value for adequate clinical interpretation.References: 1. Glucose HK (GLUC3) [package insert V 12.0 Lebanese]. [employer], [place], [place]. September 2015. 2. Michelle Moore, Loki HGarfield (2015). Chapter 7: Glucose and Lactate. F. Irina rose al.(eds.), Cerebrospinal Fluid in Clinical Neurology. Bee: [employer]. Performed By: #### 2 342-4, 2880-3 ####[facility]ATORYCLIA [id number] [address] STATES [place] NURSING PROGon 07-19-[address] [facility] NURSING PROG Normal [facility] Prot CSF-ncon 07-19-2021 Protein (CSF) [Mass/Vol] 51 mg/dL High 15-45 [facility] Comment on above: Order Comment: Speci men Type: CEREBROSPINAL FLUIDOrdering Facility: [facility] Address: [address] [place] [address] Performed By: #### 2 342-4, 2880-3 ####[facility]ATORYCLIA [id number] [address] [place] THERAPY NTon 07-19-[address] [facility] Urinalysis complete panel (U )on 07-19-2021 Bilirubin Ql (U) Negative Normal Negative [facility] Comment on above: Order Comment: Speci men Type: URINE SPECIMENOrdering Facility: [facility] Address: [address] [place] [address] Performed By: #### 2 4356-8 ####[facility]ATORYCLIA [id number] [address] Clarity (Unsp spec) Clear Normal Clear [facility] Comment on above: Order Comment: Speci men Type: URINE SPECIMENOrdering Facility: [facility] Address: [address] [place] [address] Performed By: #### 2 4356-8 ####[facility]ATORYCLIA [id number] [address] Color (U) Colorless Normal yellow [facility] Comment on above: Order Comment: Speci men Type: URINE SPECIMENOrdering Facility: [facility] Address: [address] [place] [address] Performed By: #### 2 4356-8 ####[facility]ORYCLIA [id number] [address] Glucose Test strip (U) [Mass/Vol] Negative Normal Negative [facility] Comment on above: Order Comment: Speci men Type: URINE SPECIMENOrdering Facility: [facility] Address: [address] [place] [address] Performed By: #### 2 4356-8 ####[facility]ORYCLIA [id number] [address] Hemoglobin Ql (U) Trace Abnormal Negative [facility] Comment on above: Order Comment: Speci men Type: URINE SPECIMENOrdering Facility: [facility] Address: [address] [place] [address] Performed By: #### 2 4356-8 ####[facility]ATORYCLIA [id number] [address] [place] Hyaline casts (Urine sed) [#/Area] 1-3 /LPF Abnormal 0 /LPF [facility] Comment on above: Order Comment: Speci men Type: URINE SPECIMENOrdering Facility: [facility] Address: [address] [place] [address] Performed By: #### 2 4356-8 ####[facility]ORATORYCLIA [id number] [address] Ketones Ql (U) Negative Normal Negative [facility] Comment on above: Order Comment: Speci men Type: URINE SPECIMENOrdering Facility: [facility] Address: [address] [place] [address] Performed By: #### 2 4356-8 ####[facility]ORYCLIA [id number] [address] Leukocyte esterase Test strip Ql (U) Negative Normal Negative [facility] Comment on above: Order Comment: Speci men Type: URINE SPECIMENOrdering Facility: [facility] Address: [address] [place] [address] Performed By: #### 2 4356-8 ####[facility]ATORYCLIA [id number] [address] STATES [facility] Nitrite Ql (U) Negative Normal Negative [facility] Comment on above: Order Comment: Speci men Type: URINE SPECIMENOrdering Facility: [facility] Address: [address] [place] [address] Performed By: #### 2 4356-8 ####[facility]ORATORYCLIA [id number] [address] [place] pH (U) 7.0 [pH] Normal 5.0-8.0 [facility] Comment on above: Order Comment: Speci men Type: URINE SPECIMENOrdering Facility: [facility] Address: [address] [place] [address] Performed By: #### 2 4356-8 ####[facility]ATORYCLIA [id number] [address] [place] Protein (U) [Mass/Vol] Negative Normal Negative [facility] Comment on above: Order Comment: Speci men Type: URINE SPECIMENOrdering Facility: [facility] Address: [address] [place] [address] Performed By: #### 2 4356-8 ####[facility]ATORYCLIA [id number] [address] [place] RBC LM.HPF (Urine sed) [#/Area] 6-10 /HPF Abnormal 0-3 /HPF [facility] Comment on above: Order Comment: Speci men Type: URINE SPECIMENOrdering Facility: [facility] Address: [address] [place] [address] Performed By: #### 2 4356-8 ####[facility]ATORYCLIA [id number] [address] Specific gravity (U) [Rel density] 1.008 Normal 1.005-1.030 [facility] Comment on above: Order Comment: Speci men Type: URINE SPECIMENOrdering Facility: [facility] Address: [address] [place] [address] Performed By: #### 2 4356-8 ####[facility]ATORYCLIA [id number] [address] Urobilinogen Ql (U) Normal Normal Negative [facility] Comment on above: Order Comment: Speci men Type: URINE SPECIMENOrdering Facility: [facility] Address: [address] [place] [address] Performed By: #### 2 4356-8 ####[facility]ATORYCLIA [id number] [address] [place] WBC LM.HPF (Urine sed) [#/Area] 0-5 /HPF Normal 0-5 /HPF [facility] Comment on above: Order Comment: Speci men Type: URINE SPECIMENOrdering Facility: [facility] Address: [address] [place] [address] Performed By: #### 2 4356-8 ####[facility]ATORYCLIA [id number] [address] STATES OF [facility] Vancomycin random [Mass/Vol] on 07-19-2021 Vancomycin [Mass/Vol] 13.9 ug/mL Normal 10.0-20.0 [facility] Comment on above: Order Comment: Speci men Type: BLOOD SPECIMENOrdering Facility: [facility] Address: [address] [place] [address] Result Comment: Refe rence ranges and high/low indicator flags are provided as general guidelines only. The treating physician must determine appropriate target levels/dosing based on the specific clinical situation. Performed By: #### 4 091-5 ####[facility]ATORYCLIA [id number] [address] STATES OF [facility] aPTT PPPon 07-19-2021 aPTT Coag (PPP) [Time] 53.9 s High 23.0-32.4 [facility] Comment on above: Order Comment: Speci men Type: BLOOD SPECIMENOrdering Facility: [facility] Address: [address] [place] [address] Performed By: #### 1 4979-9 ####[facility] [id number] [place] [address] [place] Basic metabolic 2000 panelon 07-18-2021 Anion gap [Moles/Vol] 6 mmol/L Low 9-18 [facility] Comment on above: Order Comment: Speci men Type: BLOOD SPECIMENOrdering Facility: [facility] Address: [address] [place] [address] Performed By: #### 2 4321-2, 16701-8, 2777-1 ####[facility]ATORYCLIA [id number] [address] [place] Calcium [Mass/Vol] 9.4 mg/dL Normal 8.5-10.2 [facility] Comment on above: Order Comment: Speci men Type: BLOOD SPECIMENOrdering Facility: [facility] Address: [address] [place] [address] Performed By: #### 2 4321-2, , 2776-05 ####[facility]ATORYCLIA [id number] [place] [id number] [place] Chloride [Moles/Vol] 103 mmol/L Normal 97-105 [facility] Comment on above: Order Comment: Speci men Type: BLOOD SPECIMENOrdering Facility: [facility] Address: [address] [place] [address] Performed By: #### 2 4321-2, , 2776-05 ####[facility]ATORYCLIA [id number] [place] [address] [place] CO2 [Moles/Vol] 34 mmol/L High 22-30 [facility] Comment on above: Order Comment: Speci men Type: BLOOD SPECIMENOrdering Facility: [facility] Address: [address] [place] [address] Performed By: #### 2 4321-2, , 2776-05 ####[facility]ORYCLIA [id number] [address] STATES OF [facility] Creatinine [Mass/Vol] 0.75 mg/dL Normal 0.73-1.22 [facility] Comment on above: Order Comment: Speci men Type: BLOOD SPECIMENOrdering Facility: [facility] Address: [address] [place] [address] Performed By: #### 2 4321-2, , 2776-05 ####[facility]ORYCLIA [id number] [address] ESTIMATED GLOMERULAR FILTRATION RATE 98 mL/min/1.73m??? Normal >=60 [facility] Comment on above: Order Comment: Speci men Type: BLOOD SPECIMENOrdering Facility: [facility] Address: [address] [place] [address] Result Comment: Luzmaria mated Glomerular Filtration Rate [...] By: #### 2 4321-2, , 2776-05 ####[facility]ORYCLIA [id number] [place] [address] [place] Glucose [Mass/Vol] 125 mg/dL High 74-99 [facility] Comment on above: Order Comment: Shira feldman Type: BLOOD SPECIMENOrdering Facility: [facility] Address: [address] [place] [phone] Result Comment: The [place] [employer] (ADA) provides guidance for cutoff [...] Standards of Medical Care in Diabetes 2016, [place] [employer]. Diabetes Care. 2016.39(Suppl 1). Performed By: #### 2 4321-2, , 2776-05 ####[facility]ORYCLIA [id number] [place] [address] [place] Potassium [Moles/Vol] 4.4 mmol/L Normal 3.7-5.1 [facility] Comment on above: Order Comment: Shira feldman Type: BLOOD SPECIMENOrdering Facility: [facility] Address: [address] [place] [address] Performed By: #### 2 4321-2, , 2776-05 ####[facility]ORYCLIA [id number] [place] [address] [place] Sodium [Moles/Vol] 143 mmol/L Normal 136-144 [facility] Comment on above: Order Comment: Speci men Type: BLOOD SPECIMENOrdering Facility: [facility] Address: [address] [place] [address] Performed By: #### 2 4321-2, , 2776-05 ####[facility]ORYCLIA [id number] [address] STATES [facility] Urea nitrogen [Mass/Vol] 33 mg/dL High 9-24 [facility] Comment on above: Order Comment: Speci men Type: BLOOD SPECIMENOrdering Facility: [facility] Address: [address] [place] [address] Performed By: #### 2 4321-2, , 2776-05 ####[facility]ORYCLIA [id number] [address] [place] CASE MANAGEMon 07-18-[address] [facility] CBC W Auto Differential pane l (Bld)on 07-18-2021 Basophils (Bld) [#/Vol] 0.05 10*3/uL Normal <0.11 [facility] Comment on above: Order Comment: Speci men Type: BLOOD SPECIMENOrdering Facility: [facility] Address: [address] [place] [address] Performed By: #### 5 7021-8 ####[facility]ORYCLIA [id number] [address] STATES [facility] Basophils/100 WBC (Bld) 0.5 % Normal [facility] Comment on above: Order Comment: Speci men Type: BLOOD SPECIMENOrdering Facility: [facility] Address: [address] [place] [address] Performed By: #### 5 7021-8 ####[facility]ORYCLIA [id number] [address] STATES OF [facility] Differential cell count method Nom (Bld) Auto Normal [facility] Comment on above: Order Comment: Speci men Type: BLOOD SPECIMENOrdering Facility: [facility] Address: [address] [place] [address] Performed By: #### 5 7021-8 ####[facility]ORYCLIA [id number] [address] [place] Eosinophils (Bld) [#/Vol] 0.44 10*3/uL Normal <0.46 [facility] Comment on above: Order Comment: Speci men Type: BLOOD SPECIMENOrdering Facility: [facility] Address: [address] [place] [address] Performed By: #### 5 7021-8 ####[facility]ORYCLIA [id number] [address] Eosinophils/100 WBC (Bld) 4.3 % Normal [facility] Comment on above: Order Comment: Speci men Type: BLOOD SPECIMENOrdering Facility: [facility] Address: [address] [place] [address] Performed By: #### 5 7021-8 ####[facility]ORYCLIA [id number] [address] Erythrocyte distribution width (RBC) [Ratio] 16.6 % High 11.5-15.0 [facility] Comment on above: Order Comment: Speci men Type: BLOOD SPECIMENOrdering Facility: [facility] Address: [address] [place] [address] Performed By: #### 5 7021-8 ####[facility]ORYCLIA [id number] [address] Hematocrit (Bld) [Volume fraction] 32.2 % Low 39.0-51.0 [facility] Comment on above: Order Comment: Speci men Type: BLOOD SPECIMENOrdering Facility: [facility] Address: [address] [place] [address] Performed By: #### 5 7021-8 ####[facility]ORYCLIA [id number] [address] [place] Hemoglobin (Bld) [Mass/Vol] 9.5 g/dL Low 13.0-17.0 [facility] Comment on above: Order Comment: Speci men Type: BLOOD SPECIMENOrdering Facility: [facility] Address: [address] [place] [address] Performed By: #### 5 7021-8 ####[facility]ORYCLIA [id number] [address] IMMATURE GRAN % 0.4 % Normal [facility] Comment on above: Order Comment: Speci men Type: BLOOD SPECIMENOrdering Facility: [facility] Address: [address] [place] [address] Performed By: #### 5 7021-8 ####[facility]ORYCLIA [id number] [address] IMMATURE GRAN ABS 0.04 k/uL Normal <0.10 [facility] Comment on above: Order Comment: Speci men Type: BLOOD SPECIMENOrdering Facility: [facility] Address: [address] [place] [address] Performed By: #### 5 7021-8 ####[facility]ORYCLIA [id number] [address] Lymphocytes (Bld) [#/Vol] 1.71 10*3/uL Normal 1.00-4.00 [facility] Comment on above: Order Comment: Speci men Type: BLOOD SPECIMENOrdering Facility: [facility] Address: [address] [place] [address] Performed By: #### 5 7021-8 ####[facility]ORYCLIA [id number] [address] Lymphocytes/100 WBC (Bld) 16.9 % Normal [facility] Comment on above: Order Comment: Speci men Type: BLOOD SPECIMENOrdering Facility: [facility] Address: [address] [place] [address] Performed By: #### 5 7021-8 ####[facility]ORYCLIA [id number] [address] MCH (RBC) [Entitic mass] 27.9 pg Normal 26.0-34.0 [facility] [facility] Comment on above: Order Comment: Speci men Type: BLOOD SPECIMENOrdering Facility: [facility] Address: [address] [place] [address] Performed By: #### 5 7021-8 ####[facility]ATORYCLIA [id number] [address] STATES [facility] MCHC (RBC) [Mass/Vol] 29.5 g/dL Low 30.5-36.0 [facility] Comment on above: Order Comment: Speci men Type: BLOOD SPECIMENOrdering Facility: [facility] Address: [address] [place] [address] Performed By: #### 5 7021-8 ####[facility]ATORYCLIA [id number] [address] STATES OF [facility] MCV (RBC) [Entitic vol] 94.7 fL Normal 80.0-100.0 [facility] Comment on above: Order Comment: Speci men Type: BLOOD SPECIMENOrdering Facility: [facility] Address: [address] [place] [address] Performed By: #### 5 7021-8 ####[facility]ATORYCLIA [id number] [address] Monocytes (Bld) [#/Vol] 0.69 10*3/uL Normal <0.87 [facility] Comment on above: Order Comment: Speci men Type: BLOOD SPECIMENOrdering Facility: [facility] Address: [address] [place] [address] Performed By: #### 5 7021-8 ####[facility]ORYCLIA [id number] [address] Monocytes/100 WBC (Bld) 6.8 % Normal [facility] Comment on above: Order Comment: Speci men Type: BLOOD SPECIMENOrdering Facility: [facility] Address: [address] [place] [address] Performed By: #### 5 7021-8 ####[facility]ATORYCLIA [id number] [place] [address] [place] Neutrophils (Bld) [#/Vol] 7.19 10*3/uL Normal 1.45-7.50 [facility] Comment on above: Order Comment: Speci men Type: BLOOD SPECIMENOrdering Facility: [facility] Address: [address] [place] [address] Performed By: #### 5 7021-8 ####[facility]ATORYCLIA [id number] [address] [place] Neutrophils/100 WBC (Bld) 71.1 % Normal [facility] Comment on above: Order Comment: Speci men Type: BLOOD SPECIMENOrdering Facility: [facility] Address: [address] [place] [address] Performed By: #### 5 7021-8 ####[facility]ATORYCLIA [id number] [address] [place] Nucleated RBC (Bld) [#/Vol] 10*3/uL Normal <0.01 [facility] Comment on above: Order Comment: Speci men Type: BLOOD SPECIMENOrdering Facility: [facility] Address: [address] [place] [address] Performed By: #### 5 7021-8 ####[facility]ORYCLIA [id number] [address] [place] Nucleated RBC/100 WBC (Bld) [Ratio] 0.0 /[address] [facility] Comment on above: Order Comment: Speci men Type: BLOOD SPECIMENOrdering Facility: [facility] Address: [address] [place] [address] Performed By: #### 5 7021-8 ####[facility]ATORYCLIA [id number] [address] [place] Platelet mean volume (Bld) [Entitic vol] 10.3 fL Normal 9.0-12.7 [facility] Comment on above: Order Comment: Speci men Type: BLOOD SPECIMENOrdering Facility: [facility] Address: [address] [place] [address] Performed By: #### 5 7021-8 ####[facility]ORYCLIA [id number] [address] Platelets (Bld) [#/Vol] 403 10*3/uL High 150-400 [facility] Comment on above: Order Comment: Speci men Type: BLOOD SPECIMENOrdering Facility: [facility] Address: [address] [place] [address] Performed By: #### 5 7021-8 ####[facility]ATORYCLIA [id number] [address] [place] RBC (Bld) [#/Vol] 3.40 10*6/uL Low 4.20-6.00 [facility] Comment on above: Order Comment: Speci men Type: BLOOD SPECIMENOrdering Facility: [facility] Address: [address] [place] [address] Performed By: #### 5 7021-8 ####[facility]ORYCLIA [id number] [address] OF [facility] WBC (Bld) [#/Vol] 10.12 10*3/uL Normal 3.70-11.00 [facility] Comment on above: Order Comment: Speci men Type: BLOOD SPECIMENOrdering Facility: [facility] Address: [address] [place] [address] Performed By: #### 5 7021-8 ####[facility]ORYCLIA [id number] [address] Magnesium SerPl-mCncon 07-18 Magnesium [Mass/Vol] 2.4 mg/dL High 1.7-2.3 [facility] Comment on above: Order Comment: Speci men Type: BLOOD SPECIMENOrdering Facility: [facility] Address: [address] [place] [address] Performed By: #### 2 4321-2, 43491-3, 2777-1 ####[facility]ATORYCLIA [id number] [address] [place] NURSING PROGon 07-18-[address] [facility] NURSING PROG Normal [facility] Phosphate SerPl-mCncon 07-18 Phosphate [Mass/Vol] 3.9 mg/dL Normal 2.7-4.8 [facility] Comment on above: Order Comment: Speci men Type: BLOOD SPECIMENOrdering Facility: [facility] Address: [address] [place] [address] Performed By: #### 2 4321-2, 81859-0, 2777-1 ####[facility]ATORYCLIA [id number] [address] THERAPY NTon 07-18-[address] [facility] aPTT PPPon 07-18-2021 aPTT Coag (PPP) [Time] 52.3 s High 23.0-32.4 [facility] Comment on above: Order Comment: Speci men Type: BLOOD SPECIMENOrdering Facility: [facility] Address: [address] [place] [address] Performed By: #### 1 4979-9 ####[facility]ATORYCLIA [id number] [address] STATES OF [facility] CBC W Auto Differential pane l (Bld)on 07-17-2021 Basophils (Bld) [#/Vol] 0.05 10*3/uL Normal <0.11 [facility] Comment on above: Order Comment: Speci men Type: BLOOD SPECIMENOrdering Facility: [facility] Address: [address] [place] [address] Performed By: #### 5 7021-8 ####[facility]ATORYCLIA [id number] [address] Basophils/100 WBC (Bld) 0.5 % Normal [facility] Comment on above: Order Comment: Speci men Type: BLOOD SPECIMENOrdering Facility: [facility] Address: [address] [address] Performed By: #### 5 7021-8 ####[facility]ATORYCLIA [id number] [address] Differential cell count method Nom (Bld) Auto Normal [facility] Comment on above: Order Comment: Speci men Type: BLOOD SPECIMENOrdering Facility: [facility] Address: [address] [place] [address] Performed By: #### 5 7021-8 ####[facility]ATORYCLIA [id number] [address] [place] Eosinophils (Bld) [#/Vol] 0.32 10*3/uL Normal <0.46 [facility] Comment on above: Order Comment: Speci men Type: BLOOD SPECIMENOrdering Facility: [facility] Address: [address] [place] [address] Performed By: #### 5 7021-8 ####[facility]ATORYCLIA [id number] [address] Eosinophils/100 WBC (Bld) 3.4 % Normal [facility] Comment on above: Order Comment: Speci men Type: BLOOD SPECIMENOrdering Facility: [facility] Address: [address] [place] [address] Performed By: #### 5 7021-8 ####[facility]ATORYCLIA [id number] [address] [place] Erythrocyte distribution width (RBC) [Ratio] 16.6 % High 11.5-15.0 [facility] Comment on above: Order Comment: Speci men Type: BLOOD SPECIMENOrdering Facility: [facility] Address: [address] [place] [address] Performed By: #### 5 7021-8 ####[facility]ATORYCLIA [id number] [address] [place] Hematocrit (Bld) [Volume fraction] 30.7 % Low 39.0-51.0 [facility] Comment on above: Order Comment: Speci men Type: BLOOD SPECIMENOrdering Facility: [facility] Address: [address] [place] [address] Performed By: #### 5 7021-8 ####[facility]ORYCLIA [id number] [address] [place] Hemoglobin (Bld) [Mass/Vol] 9.0 g/dL Low 13.0-17.0 [facility] Comment on above: Order Comment: Speci men Type: BLOOD SPECIMENOrdering Facility: [facility] Address: [address] [place] [address] Performed By: #### 5 7021-8 ####[facility]ATORYCLIA [id number] [address] IMMATURE GRAN % 0.6 % Normal [facility] Comment on above: Order Comment: Speci men Type: BLOOD SPECIMENOrdering Facility: [facility] Address: [address] [place] [address] Performed By: #### 5 7021-8 ####[facility]ATORYCLIA [id number] [address] IMMATURE GRAN ABS 0.06 k/uL Normal <0.10 [facility] Comment on above: Order Comment: Speci men Type: BLOOD SPECIMENOrdering Facility: [facility] Address: [address] [place] [address] Performed By: #### 5 7021-8 ####[facility]ATORYCLIA [id number] [address] [place] Lymphocytes (Bld) [#/Vol] 1.61 10*3/uL Normal 1.00-4.00 [facility] Comment on above: Order Comment: Speci men Type: BLOOD SPECIMENOrdering Facility: [facility] Address: [address] [place] [address] Performed By: #### 5 7021-8 ####[facility]ATORYCLIA [id number] [address] Lymphocytes/100 WBC (Bld) 17.3 % Normal [facility] Comment on above: Order Comment: Speci men Type: BLOOD SPECIMENOrdering Facility: [facility] Address: [address] [place] [address] Performed By: #### 5 7021-8 ####[facility]ORYCLIA [id number] [address] STATES OF [facility] MCH (RBC) [Entitic mass] 26.9 pg Normal 26.0-34.0 [facility] Comment on above: Order Comment: Speci men Type: BLOOD SPECIMENOrdering Facility: [facility] Address: [address] [place] [address] Performed By: #### 5 7021-8 ####[facility]ORYCLIA [id number] [address] [place] MCHC (RBC) [Mass/Vol] 29.3 g/dL Low 30.5-36.0 [facility] Comment on above: Order Comment: Speci men Type: BLOOD SPECIMENOrdering Facility: [facility] Address: [address] [place] [address] Performed By: #### 5 7021-8 ####[facility]ORYCLIA [id number] [address] MCV (RBC) [Entitic vol] 91.9 fL Normal 80.0-100.0 [facility] Comment on above: Order Comment: Speci men Type: BLOOD SPECIMENOrdering Facility: [facility] Address: [address] [place] [address] Performed By: #### 5 7021-8 ####[facility]ATORYCLIA [id number] [address] Monocytes (Bld) [#/Vol] 0.61 10*3/uL Normal <0.87 [facility] Comment on above: Order Comment: Speci men Type: BLOOD SPECIMENOrdering Facility: [facility] Address: [address] [place] [address] Performed By: #### 5 7021-8 ####[facility]ORATORYCLIA [id number] [address] [place] Monocytes/100 WBC (Bld) 6.6 % Normal [facility] Comment on above: Order Comment: Speci men Type: BLOOD SPECIMENOrdering Facility: [facility] Address: [address] [place] [address] Performed By: #### 5 7021-8 ####[facility]ATORYCLIA [id number] [place] [address] [place] Neutrophils (Bld) [#/Vol] 6.64 10*3/uL Normal 1.45-7.50 [facility] Comment on above: Order Comment: Speci men Type: BLOOD SPECIMENOrdering Facility: [facility] Address: [address] [place] [address] Performed By: #### 5 7021-8 ####[facility]ORYCLIA [id number] [address] Neutrophils/100 WBC (Bld) 71.6 % Normal [facility] Comment on above: Order Comment: Speci men Type: BLOOD SPECIMENOrdering Facility: [facility] Address: [address] [place] [address] Performed By: #### 5 7021-8 ####[facility]ORYCLIA [id number] [address] [place] Nucleated RBC (Bld) [#/Vol] 10*3/uL Normal <0.01 [facility] Comment on above: Order Comment: Speci men Type: BLOOD SPECIMENOrdering Facility: [facility] Address: [address] [place] [address] Performed By: #### 5 7021-8 ####[facility]ATORYCLIA [id number] [address] [place] Nucleated RBC/100 WBC (Bld) [Ratio] 0.0 /[address] [facility] Comment on above: Order Comment: Speci men Type: BLOOD SPECIMENOrdering Facility: [facility] Address: [address] Performed By: #### 5 7021-8 ####[facility]ATORYCLIA [id number] [address] STATES [facility] Platelet mean volume (Bld) [Entitic vol] 10.1 fL Normal 9.0-12.7 [facility] Comment on above: Order Comment: Speci men Type: BLOOD SPECIMENOrdering Facility: [facility] Address: [address] [place] [address] Performed By: #### 5 7021-8 ####[facility]ATORYCLIA [id number] [address] [place] Platelets (Bld) [#/Vol] 387 10*3/uL Normal 150-400 [facility] Comment on above: Order Comment: Speci men Type: BLOOD SPECIMENOrdering Facility: [facility] Address: [address] [place] [address] Performed By: #### 5 7021-8 ####[facility]ATORYCLIA [id number] [address] [place] RBC (Bld) [#/Vol] 3.34 10*6/uL Low 4.20-6.00 [facility] Comment on above: Order Comment: Speci men Type: BLOOD SPECIMENOrdering Facility: [facility] Address: [address] [place], [place] [address] Performed By: #### 5 7021-8 ####[facility]ATORYCLIA [id number] [address] [place] WBC (Bld) [#/Vol] 9.29 10*3/uL Normal 3.70-11.00 [facility] Comment on above: Order Comment: Speci men Type: BLOOD SPECIMENOrdering Facility: [facility] Address: [address] [place] [address] Performed By: #### 5 7021-8 ####[facility]ATORYCLIA [id number] [address] [place] CONSULT PROGon 07-17-[address] [facility] Magnesium SerPl-mCncon 07-17 Magnesium [Mass/Vol] 2.3 mg/dL Normal 1.7-2.3 [facility] Comment on above: Order Comment: Speci men Type: BLOOD SPECIMENOrdering Facility: [facility] Address: [address] [place] [address] Performed By: #### 2 777-1, 15372-7 ####[facility]ATORYCLIA [id number] [address] NURSING PROGon 07-17-[address] [facility] NUR[address]OG [address] [facility] NURSING PROG Normal [facility] Phosphate SerPl-mCncon 07-17 Phosphate [Mass/Vol] 3.6 mg/dL Normal 2.7-4.8 [facility] Comment on above: Order Comment: Speci men Type: BLOOD SPECIMENOrdering Facility: [facility] Address: [address] [place] [address] Performed By: #### 2 777-1, 56244-0 ####[facility]ATORYCLIA [id number] [address] aPTT PPPon 07-17-2021 aPTT Coag (PPP) [Time] 57.2 s High 23.0-32.4 [facility] Comment on above: Order Comment: Speci men Type: BLOOD SPECIMENOrdering Facility: [facility] Address: [address] [place] [address] Performed By: #### 1 4979-9 ####[facility]ATORYCLIA [id number] [address] [place] Basic metabolic 2000 panelon 07-16-2021 Anion gap [Moles/Vol] 5 mmol/L Low 9-18 [facility] Comment on above: Order Comment: Speci men Type: BLOOD SPECIMENOrdering Facility: [facility] Address: [address] [place], [place] [address] Performed By: #### 2 777-1, 25905-7, ####[facility]ATORYCLIA [id number] [place] [address] [place] Calcium [Mass/Vol] 9.1 mg/dL Normal 8.5-10.2 [facility] Comment on above: Order Comment: Speci men Type: BLOOD SPECIMENOrdering Facility: [facility] Address: [address] [place] [address] Performed By: #### 2 777-1, 05944-3, ####[facility]ATORYCLIA [id number] [place] [address] [place] Chloride [Moles/Vol] 101 mmol/L Normal 97-105 [facility] Comment on above: Order Comment: Speci men Type: BLOOD SPECIMENOrdering Facility: [facility] Address: [address] [place] [address] Performed By: #### 2 777-1, , ####[facility]ATORYCLIA [id number] [place] [address] [place] CO2 [Moles/Vol] 35 mmol/L High 22-30 [facility] Comment on above: Order Comment: Speci men Type: BLOOD SPECIMENOrdering Facility: [facility] Address: [address] [place] [address] Performed By: #### 2 777-1, , ####[facility]ATORYCLIA [id number] [place] [address] [place] Creatinine [Mass/Vol] 0.73 mg/dL Normal 0.73-1.22 [facility] Comment on above: Order Comment: Speci men Type: BLOOD SPECIMENOrdering Facility: [facility] Address: [address] [place] [address] Performed By: #### 2 777-1, 25210-1, ####[facility]ATORYCLIA [id number] [place] [address] [place] ESTIMATED GLOMERULAR FILTRATION RATE 98 mL/min/1.73m??? Normal >=60 [facility] Comment on above: Order Comment: Shira feldman Type: BLOOD SPECIMENOrdering Facility: [facility] Address: [address] [place], [place] [address] Result Comment: Luzmaria mated Glomerular Filtration Rate [...] actual GFR. Performed By: #### 2 777-1, 25439-6, ####[facility]ORATORYCLIA [id number] [place] [id number] [place] Glucose [Mass/Vol] 133 mg/dL High 74-99 [facility] Comment on above: Order Comment: Shira feldman Type: BLOOD SPECIMENOrdering Facility: [facility] Address: [address] [place] [address] Result Comment: The [place] [employer] (ADA) provides guidance for cutoff [...] Standards of Medical Care in Diabetes 2016, [place] [employer]. Diabetes Care. 2016.39(Suppl 1). Performed By: #### 2 777-1, 61967-0, ####[facility]ATORYCLIA [id number] [place] [address] [place] Potassium [Moles/Vol] 4.2 mmol/L Normal 3.7-5.1 [facility] Comment on above: Order Comment: Speci men Type: BLOOD SPECIMENOrdering Facility: [facility] Address: [address] [place] [address] Performed By: #### 2 777-1, 66064-1, ####[facility]ATORYCLIA [id number] [place] [address] [place] Sodium [Moles/Vol] 141 mmol/L Normal 136-144 [facility] Comment on above: Order Comment: Speci men Type: BLOOD SPECIMENOrdering Facility: [facility] Address: [address] [place] [address] Performed By: #### 2 777-1, , ####[facility]ATORYCLIA [id number] [address] [place] Urea nitrogen [Mass/Vol] 21 mg/dL Normal 9-24 [facility] Comment on above: Order Comment: Speci men Type: BLOOD SPECIMENOrdering Facility: [facility] Address: [address] [place] [address] Performed By: #### 2 777-1, , ####[facility]ATORYCLIA [id number] [address] [place] CBC W Auto Differential pane l (Bld)on 07-16-2021 Basophils (Bld) [#/Vol] 0.06 10*3/uL Normal <0.11 [facility] Comment on above: Order Comment: Speci men Type: BLOOD SPECIMENOrdering Facility: [facility] Address: [address] [place] [address] Performed By: #### 5 7021-8 ####[facility]ATORYCLIA [id number] [address] [place] Basophils/100 WBC (Bld) 0.7 % Normal [facility] Comment on above: Order Comment: Speci men Type: BLOOD SPECIMENOrdering Facility: [facility] Address: [address] [address] Performed By: #### 5 7021-8 ####[facility]ORYCLIA [id number] [address] Differential cell count method Nom (Bld) Auto Normal [facility] Comment on above: Order Comment: Speci men Type: BLOOD SPECIMENOrdering Facility: [facility] Address: [address] [place] [address] Performed By: #### 5 7021-8 ####[facility]ATORYCLIA [id number] [address] [place] Eosinophils (Bld) [#/Vol] 0.35 10*3/uL Normal <0.46 [facility] Comment on above: Order Comment: Speci men Type: BLOOD SPECIMENOrdering Facility: [facility] Address: [address] [place] [address] Performed By: #### 5 7021-8 ####[facility]ORYCLIA [id number] [address] Eosinophils/100 WBC (Bld) 3.9 % Normal [facility] Comment on above: Order Comment: Speci men Type: BLOOD SPECIMENOrdering Facility: [facility] Address: [address] [place] [address] Performed By: #### 5 7021-8 ####[facility]ORYCLIA [id number] [address] [place] Erythrocyte distribution width (RBC) [Ratio] 16.5 % High 11.5-15.0 [facility] Comment on above: Order Comment: Speci men Type: BLOOD SPECIMENOrdering Facility: [facility] Address: [address] [place] [address] Performed By: #### 5 7021-8 ####[facility]ORYCLIA [id number] [address] [place] Hematocrit (Bld) [Volume fraction] 30.9 % Low 39.0-51.0 [facility] Comment on above: Order Comment: Speci men Type: BLOOD SPECIMENOrdering Facility: [facility] Address: [address] [place] [address] Performed By: #### 5 7021-8 ####[facility]ORYCLIA [id number] [address] [place] Hemoglobin (Bld) [Mass/Vol] 9.1 g/dL Low 13.0-17.0 [facility] Comment on above: Order Comment: Speci men Type: BLOOD SPECIMENOrdering Facility: [facility] Address: [address] [place] [address] Performed By: #### 5 7021-8 ####[facility]ATORYCLIA [id number] [address] IMMATURE GRAN % 0.4 % Normal [facility] Comment on above: Order Comment: Speci men Type: BLOOD SPECIMENOrdering Facility: [facility] Address: [address] [place] [address] Performed By: #### 5 7021-8 ####[facility]ATORYCLIA [id number] [address] IMMATURE GRAN ABS 0.04 k/uL Normal <0.10 [facility] Comment on above: Order Comment: Speci men Type: BLOOD SPECIMENOrdering Facility: [facility] Address: [address] [place] [address] Performed By: #### 5 7021-8 ####[facility] LABORATORYCLIA [id number] [address] [place] Lymphocytes (Bld) [#/Vol] 1.35 10*3/uL Normal 1.00-4.00 [facility] Comment on above: Order Comment: Speci men Type: BLOOD SPECIMENOrdering Facility: [facility] Address: [address] [place] [address] Performed By: #### 5 7021-8 ####[facility] LABORATORYCLIA [id number] [address] Lymphocytes/100 WBC (Bld) 15.0 % Normal [facility] Comment on above: Order Comment: Speci men Type: BLOOD SPECIMENOrdering Facility: [facility] Address: [address] [place] [address] Performed By: #### 5 7021-8 ####[facility] LABORATORYCLIA [id number] 22 [address] STATES OF [facility] MCH (RBC) [Entitic mass] 27.1 pg Normal 26.0-34.0 [facility] Comment on above: Order Comment: Speci men Type: BLOOD SPECIMENOrdering Facility: [facility] Address: [address] [place] [address] Performed By: #### 5 7021-8 ####[facility]ORATORYCLIA [id number] [address] MCHC (RBC) [Mass/Vol] 29.4 g/dL Low 30.5-36.0 [facility] Comment on above: Order Comment: Speci men Type: BLOOD SPECIMENOrdering Facility: [facility] Address: [address] [place] [address] Performed By: #### 5 7021-8 ####[facility]ORATORYCLIA [id number] [address] MCV (RBC) [Entitic vol] 92.0 fL Normal 80.0-100.0 [facility] Comment on above: Order Comment: Speci men Type: BLOOD SPECIMENOrdering Facility: [facility] Address: [address] [place] [address] Performed By: #### 5 7021-8 ####[facility]ATORYCLIA [id number] [address] Monocytes (Bld) [#/Vol] 0.53 10*3/uL Normal <0.87 [facility] Comment on above: Order Comment: Speci men Type: BLOOD SPECIMENOrdering Facility: [facility] Address: [address] [place] [address] Performed By: #### 5 7021-8 ####[facility]ATORYCLIA [id number] [address] [place] Monocytes/100 WBC (Bld) 5.9 % Normal [facility] Comment on above: Order Comment: Speci men Type: BLOOD SPECIMENOrdering Facility: [facility] Address: [address] [place] [address] Performed By: #### 5 7021-8 ####[facility]ORATORYCLIA [id number] [address] [place] Neutrophils (Bld) [#/Vol] 6.67 10*3/uL Normal 1.45-7.50 [facility] Comment on above: Order Comment: Speci men Type: BLOOD SPECIMENOrdering Facility: [facility] Address: [address] [place] [address] Performed By: #### 5 7021-8 ####[facility]ORATORYCLIA [id number] [address] Neutrophils/100 WBC (Bld) 74.1 % Normal [facility] Comment on above: Order Comment: Speci men Type: BLOOD SPECIMENOrdering Facility: [facility] Address: [address] [place] [address] Performed By: #### 5 7021-8 ####[facility]ATORYCLIA [id number] [address] [place] Nucleated RBC (Bld) [#/Vol] 10*3/uL Normal <0.01 [facility] Comment on above: Order Comment: Speci men Type: BLOOD SPECIMENOrdering Facility: [facility] Address: [address] [place] [address] Performed By: #### 5 7021-8 ####[facility]ORATORYCLIA [id number] [address] [place] Nucleated RBC/100 WBC (Bld) [Ratio] 0.0 /[address] [facility] Comment on above: Order Comment: Speci men Type: BLOOD SPECIMENOrdering Facility: [facility] Address: [address] [place], [place] [address] Performed By: #### 5 7021-8 ####[facility]ORATORYCLIA [id number] [address] [place] Platelet mean volume (Bld) [Entitic vol] 9.9 fL Normal 9.0-12.7 [facility] Comment on above: Order Comment: Speci men Type: BLOOD SPECIMENOrdering Facility: [facility] Address: [address] [place], [place] [address] Performed By: #### 5 7021-8 ####[facility]ATORYCLIA [id number] [address] [place] Platelets (Bld) [#/Vol] 391 10*3/uL Normal 150-400 [facility] Comment on above: Order Comment: Speci men Type: BLOOD SPECIMENOrdering Facility: [facility] Address: [address] [place] [address] Performed By: #### 5 7021-8 ####[facility]ATORYCLIA [id number] [place] [address] [place] RBC (Bld) [#/Vol] 3.36 10*6/uL Low 4.20-6.00 [facility] Comment on above: Order Comment: Speci men Type: BLOOD SPECIMENOrdering Facility: [facility] Address: [address] [place], [place] [address] Performed By: #### 5 7021-8 ####[facility]ATORYCLIA [id number] [place] [address] [place] WBC (Bld) [#/Vol] 9.00 10*3/uL Normal 3.70-11.00 [facility] Comment on above: Order Comment: Speci men Type: BLOOD SPECIMENOrdering Facility: [facility] Address: [address] [place] [address] Performed By: #### 5 7021-8 ####[facility]ATORYCLIA [id number] [address] CONSULT PROGon 07-16-[address] [facility] CONSULT PROG Normal [facility] Magnesium SerPl-mCncon 07-16 Magnesium [Mass/Vol] 2.3 mg/dL Normal 1.7-2.3 [facility] Comment on above: Order Comment: Speci men Type: BLOOD SPECIMENOrdering Facility: [facility] Address: [address] [place] [address] Performed By: #### 2 777-1, 76940-6, ####[facility]ATORYCLIA [id number] [address] NURSING PROGon 07-16-[address] [facility] Phosphate SerPl-mCncon 07-16 Phosphate [Mass/Vol] 3.6 mg/dL Normal 2.7-4.8 [facility] Comment on above: Order Comment: Speci men Type: BLOOD SPECIMENOrdering Facility: [facility] Address: [address] [place] [address] Performed By: #### 2 777-1, 01992-3, ####[facility]ATORYCLIA [id number] [address] Vancomycin random [Mass/Vol] on 07-16-2021 Vancomycin [Mass/Vol] 16.9 ug/mL Normal 10.0-20.0 [facility] Comment on above: Order Comment: Speci men Type: BLOOD SPECIMENOrdering Facility: [facility] Address: [address] [place] [address] Result Comment: Refe rence ranges and high/low indicator flags are provided as general guidelines only. The treating physician must determine appropriate target levels/dosing based on the specific clinical situation. Performed By: #### 4 091-5 ####[facility]ATORYCLIA [id number] [address] [place] aPTT PPPon 07-16-2021 aPTT Coag (PPP) [Time] 57.2 s High 23.0-32.4 [facility] Comment on above: Order Comment: Speci men Type: BLOOD SPECIMENOrdering Facility: [facility] Address: [address] [place] [address] Performed By: #### 1 4979-9 ####[facility]ORATORYCLIA [id number] [place] [id number] [place] ALLIED HEALTHon 07-15-[address] [facility] Basic metabolic 2000 panelon 07-15-2021 Anion gap [Moles/Vol] 11 mmol/L Normal 9-18 [facility] Comment on above: Order Comment: Speci men Type: BLOOD SPECIMENOrdering Facility: [facility] Address: [address] [place] [address] Performed By: #### 2 4321-2, , 2776-05 ####[facility]ATORYCLIA [id number] [place] [address] [place] Calcium [Mass/Vol] 8.8 mg/dL Normal 8.5-10.2 [facility] Comment on above: Order Comment: Speci men Type: BLOOD SPECIMENOrdering Facility: [facility] Address: [address] [place] [address] Performed By: #### 2 4321-2, , 2776-05 ####[facility]ATORYCLIA [id number] [place] [address] [place] Chloride [Moles/Vol] 101 mmol/L Normal 97-105 [facility] Comment on above: Order Comment: Speci men Type: BLOOD SPECIMENOrdering Facility: [facility] Address: [address] [place] [address] Performed By: #### 2 4321-2, , 2776-05 ####[facility]ATORYCLIA [id number] [place] [address] [place] CO2 [Moles/Vol] 31 mmol/L High 22-30 [facility] Comment on above: Order Comment: Speci men Type: BLOOD SPECIMENOrdering Facility: [facility] Address: [address] [place] [address] Performed By: #### 2 4321-2, , 2776-05 ####[facility]ISCLIA [id number] [place] [address] [place] Creatinine [Mass/Vol] 0.76 mg/dL Normal 0.73-1.22 [facility] Comment on above: Order Comment: Speci men Type: BLOOD SPECIMENOrdering Facility: [facility] Address: [address] [place] [address] Performed By: #### 2 4321-2, , 2776-05 ####[facility] HOSPITALIA [id number] [address] [place] ESTIMATED GLOMERULAR FILTRATION RATE 97 mL/min/1.73m??? Normal >=60 [facility] Comment on above: Order Comment: Speccara men Type: BLOOD SPECIMENOrdering Facility: [facility] Address: [address] [place] [address] Result Comment: Luzmaria mated Glomerular Filtration Rate [...] By: #### 2 4321-2, , 2776-05 ####[facility] LABORATORYIA [id number] [place] [address] [place] Glucose [Mass/Vol] 115 mg/dL High 74-99 [facility] Comment on above: Order Comment: Johni francia Type: BLOOD SPECIMENOrdering Facility: [facility] Address: [address] [place] [address] Result Comment: The [place] [employer] (ADA) provides guidance for cutoff [...] Standards of Medical Care in Diabetes 2016, [place] [employer]. Diabetes Care. 2016.39(Suppl 1). Performed By: #### 2 4321-2, , 2776-05 ####[facility]ATORYCLIA [id number] [place] [address] [place] Potassium [Moles/Vol] 4.0 mmol/L Normal 3.7-5.1 [facility] Comment on above: Order Comment: Shira feldman Type: BLOOD SPECIMENOrdering Facility: [facility] Address: [address] [place] [address] Performed By: #### 2 4320-2, , 2776-05 ####[facility]CLIA [id number] [place] [address] [place] Sodium [Moles/Vol] 143 mmol/L Normal 136-144 [facility] Comment on above: Order Comment: Shira feldman Type: BLOOD SPECIMENOrdering Facility: [facility] Address: [address] [place] [address] Performed By: #### 2 4321-2, , 2776-05 ####[facility]ATORYCLIA [id number] [place] [address] [place] Urea nitrogen [Mass/Vol] 17 mg/dL Normal 9-24 [facility] Comment on above: Order Comment: Shira feldman Type: BLOOD SPECIMENOrdering Facility: [facility] Address: [address] [place] [address] Performed By: #### 2 4321-2, , 2776-05 ####[facility]ATORYCLIA [id number] [address] [place] CASE MANAGEMon 07-15-[address] [facility] CBC panel Auto (Bld)on 07-15 Erythrocyte distribution width (RBC) [Ratio] 16.4 % High 11.5-15.0 [facility] Comment on above: Order Comment: Speci men Type: BLOOD SPECIMENOrdering Facility: [facility] Address: [address] [place] [address] Performed By: #### 5 8410-2 ####[facility]ATORYCLIA [id number] [address] Hematocrit (Bld) [Volume fraction] 30.3 % Low 39.0-51.0 [facility] Comment on above: Order Comment: Speci men Type: BLOOD SPECIMENOrdering Facility: [facility] Address: [address] [place] [address] Performed By: #### 5 8410-2 ####[facility]ATORYCLIA [id number] [address] Hemoglobin (Bld) [Mass/Vol] 9.2 g/dL Low 13.0-17.0 [facility] Comment on above: Order Comment: Speci men Type: BLOOD SPECIMENOrdering Facility: [facility] Address: [address] [place] [address] Performed By: #### 5 8410-2 ####[facility]ATORYCLIA [id number] [address] [place] MCH (RBC) [Entitic mass] 28.3 pg Normal 26.0-34.0 [facility] Comment on above: Order Comment: Speci men Type: BLOOD SPECIMENOrdering Facility: [facility] Address: [address] [place] [address] Performed By: #### 5 8410-2 ####[facility]ORYCLIA [id number] [address] [place] MCHC (RBC) [Mass/Vol] 30.4 g/dL Low 30.5-36.0 [facility] Comment on above: Order Comment: Speci men Type: BLOOD SPECIMENOrdering Facility: [facility] Address: [address] [place], [place] [address] Performed By: #### 5 8410-2 ####[facility]ATORYCLIA [id number] [address] [place] MCV (RBC) [Entitic vol] 93.2 fL Normal 80.0-100.0 [facility] Comment on above: Order Comment: Speci men Type: BLOOD SPECIMENOrdering Facility: [facility] Address: [address] [place], [place] [address] Performed By: #### 5 8410-2 ####[facility]ORYCLIA [id number] [address] [place] Nucleated RBC (Bld) [#/Vol] 10*3/uL Normal <0.01 [facility] Comment on above: Order Comment: Speci men Type: BLOOD SPECIMENOrdering Facility: [facility] Address: [address] [place] [address] Performed By: #### 5 8410-2 ####[facility]ORYCLIA [id number] [address] [place] Platelet mean volume (Bld) [Entitic vol] 9.9 fL Normal 9.0-12.7 [facility] Comment on above: Order Comment: Speci men Type: BLOOD SPECIMENOrdering Facility: [facility] Address: [address] [place], [place] [address] Performed By: #### 5 8410-2 ####[facility]ATORYCLIA [id number] [address] [place] Platelets (Bld) [#/Vol] 381 10*3/uL Normal 150-400 [facility] Comment on above: Order Comment: Speci men Type: BLOOD SPECIMENOrdering Facility: [facility] Address: [address] [place], [place] [address] Performed By: #### 5 8410-2 ####[facility]ATORYCLIA [id number] [place] [address] [place] RBC (Bld) [#/Vol] 3.25 10*6/uL Low 4.20-6.00 [facility] Comment on above: Order Comment: Speci men Type: BLOOD SPECIMENOrdering Facility: [facility] Address: [address] [place] [address] Performed By: #### 5 8410-2 ####[facility]ATORYCLIA [id number] [address] [place] WBC (Bld) [#/Vol] 8.80 10*3/uL Normal 3.70-11.00 [facility] Comment on above: Order Comment: Speci men Type: BLOOD SPECIMENOrdering Facility: [facility] Address: [address] [place] [address] Performed By: #### 5 8410-2 ####[facility]ATORYCLIA [id number] [address] [place] Magnesium SerPl-mCncon 07-15 Magnesium [Mass/Vol] 2.2 mg/dL Normal 1.7-2.3 [facility] Comment on above: Order Comment: Speci men Type: BLOOD SPECIMENOrdering Facility: [facility] Address: [address] [place] [address] Performed By: #### 2 4321-2, 27229-6, 2777-1 ####[facility]ATORYCLIA [id number] [place] [address] [place] NURSING PROGon 07-15-[address] [facility] NURSING PROG Normal [facility] NURSING PROG Normal [facility] NUTRITIONon 07-15-[address] [facility] Phosphate SerPl-mCncon 07-15 Phosphate [Mass/Vol] 3.4 mg/dL Normal 2.7-4.8 [facility] Comment on above: Order Comment: Speci men Type: BLOOD SPECIMENOrdering Facility: [facility] Address: [address] [place] [address] Performed By: #### 2 4321-2, 65659-0, 2777-1 ####[facility]ATORYCLIA [id number] [place] [address] [facility] THERAPY NTon 07-15-[address] [facility] US DVT UPPER LTon 07-15-2021 US DVT UPPER LT Normal [facility] XR CHEST 1V FRONTALon 2021 XR CHEST 1V FRONTAL Normal [facility] aPTT PPPon 07-15-2021 aPTT Coag (PPP) [Time] 59.9 s High 23.0-32.4 [facility] Comment on above: Order Comment: Speci men Type: BLOOD SPECIMENOrdering Facility: [facility] Address: [address] [place] [address] Performed By: #### 1 4979-9 ####[facility]ORYCLIA [id number] [place] [address] [place] Basic metabolic 2000 panelon 07-14-2021 Anion gap [Moles/Vol] 9 mmol/L Normal 9-18 [facility] Comment on above: Order Comment: Speci men Type: BLOOD SPECIMENOrdering Facility: [facility] Address: [address] [place] [address] Performed By: #### 1 9123-9, 2777-1, 67822-1 ####[facility]ORYCLIA [id number] [place] [address] [place] Calcium [Mass/Vol] 8.5 mg/dL Normal 8.5-10.2 [facility] Comment on above: Order Comment: Speci men Type: BLOOD SPECIMENOrdering Facility: [facility] Address: [address] [place] [address] Performed By: #### 1 9123-9, 2777-1, 17406-6 ####[facility]ATORYCLIA [id number] [place] [address] [place] Chloride [Moles/Vol] 99 mmol/L Normal 97-105 [facility] Comment on above: Order Comment: Speci men Type: BLOOD SPECIMENOrdering Facility: [facility] Address: [address] [place] [address] Performed By: #### 1 9123-9, 2777, ####[facility]ORYCLIA [id number] [address] CO2 [Moles/Vol] 31 mmol/L High 22-30 [facility] Comment on above: Order Comment: Speci men Type: BLOOD SPECIMENOrdering Facility: [facility] Address: [address] [place] [address] Performed By: #### 1 9123-9, 27711-04, ####[facility]ORYCLIA [id number] [address] Creatinine [Mass/Vol] 0.74 mg/dL Normal 0.73-1.22 [facility] Comment on above: Order Comment: Speci men Type: BLOOD SPECIMENOrdering Facility: [facility] Address: [address] [place] [address] Performed By: #### 1 9123-9, 2776-05, ####[facility]CL[facility] [id number] [address] ESTIMATED GLOMERULAR FILTRATION RATE 98 mL/min/1.73m??? Normal >=60 [facility] Comment on above: Order Comment: Speci men Type: BLOOD SPECIMENOrdering Facility: [facility] Address: [address] [place] [address] Result Comment: Luzmaria mated Glomerular Filtration Rate [...] GFR. Performed By: #### 1 9123-9, 27711-04, 91101-2 ####[facility]ATORYCLIA [id number] [place] [address] [place] Glucose [Mass/Vol] 117 mg/dL High 74-99 [facility] Comment on above: Order Comment: Speci men Type: BLOOD SPECIMENOrdering Facility: [facility] Address: [address] [place] [address] Result Comment: The [place] [employer] (ADA) provides guidance for cutoff [...] Standards of Medical Care in Diabetes 2016, [place] [employer]. Diabetes Care. 2016.39(Suppl 1). Performed By: #### 1 9123-9, 2777, 26664-5 ####[facility]ATORYCLIA [id number] [place] [address] [place] Potassium [Moles/Vol] 3.7 mmol/L Normal 3.7-5.1 [facility] Comment on above: Order Comment: Speci men Type: BLOOD SPECIMENOrdering Facility: [facility] Address: [address] [place], [place] [address] Performed By: #### 1 9123-9, 27711-04, 27953-5 ####[facility]ORYCLIA [id number] [place] [address] [place] Sodium [Moles/Vol] 139 mmol/L Normal 136-144 [facility] Comment on above: Order Comment: Speci men Type: BLOOD SPECIMENOrdering Facility: [facility] Address: [address] [place] [address] Performed By: #### 1 9123-9, 27711-04, 08155-2 ####[facility]ORYCLIA [id number] [address] [place] Urea nitrogen [Mass/Vol] 16 mg/dL Normal 9-24 [facility] Comment on above: Order Comment: Speci men Type: BLOOD SPECIMENOrdering Facility: [facility] Address: [address] [place] [address] Performed By: #### 1 9123-9, 2777-1, 34583-0 ####[facility]ATORYCLIA [id number] [address] CBC panel Auto (Bld)on 07-14 Erythrocyte distribution width (RBC) [Ratio] 16.2 % High 11.5-15.0 [facility] Comment on above: Order Comment: Speci men Type: BLOOD SPECIMENOrdering Facility: [facility] Address: [address] [place] [address] Performed By: #### 5 8410-2 ####[facility]ORYCLIA [id number] [address] STATES OF [facility] Hematocrit (Bld) [Volume fraction] 29.7 % Low 39.0-51.0 [facility] Comment on above: Order Comment: Speci men Type: BLOOD SPECIMENOrdering Facility: [facility] Address: [address] [place] [address] Performed By: #### 5 8410-2 ####[facility]ORYCLIA [id number] [address] [place] Hemoglobin (Bld) [Mass/Vol] 8.8 g/dL Low 13.0-17.0 [facility] Comment on above: Order Comment: Speci men Type: BLOOD SPECIMENOrdering Facility: [facility] Address: [address] [place] [address] Performed By: #### 5 8410-2 ####[facility]ORYCLIA [id number] [address] [place] MCH (RBC) [Entitic mass] 27.5 pg Normal 26.0-34.0 [facility] Comment on above: Order Comment: Speci men Type: BLOOD SPECIMENOrdering Facility: [facility] Address: [address] [place] [address] Performed By: #### 5 8410-2 ####[facility]ORYCLIA [id number] [address] MCHC (RBC) [Mass/Vol] 29.6 g/dL Low 30.5-36.0 [facility] Comment on above: Order Comment: Speci men Type: BLOOD SPECIMENOrdering Facility: [facility] Address: [address] [place] [address] Performed By: #### 5 8410-2 ####[facility]ORYCLIA [id number] [address] [place] MCV (RBC) [Entitic vol] 92.8 fL Normal 80.0-100.0 [facility] Comment on above: Order Comment: Speci men Type: BLOOD SPECIMENOrdering Facility: [facility] Address: [address] [place] [address] Performed By: #### 5 8410-2 ####[facility]ORYCLIA [id number] [address] Nucleated RBC (Bld) [#/Vol] 10*3/uL Normal <0.01 [facility] Comment on above: Order Comment: Speci men Type: BLOOD SPECIMENOrdering Facility: [facility] Address: [address] [place] [address] Performed By: #### 5 8410-2 ####[facility]ORYCLIA [id number] [address] Platelet mean volume (Bld) [Entitic vol] 9.6 fL Normal 9.0-12.7 [facility] Comment on above: Order Comment: Speci men Type: BLOOD SPECIMENOrdering Facility: [facility] Address: [address] [place] [address] Performed By: #### 5 8410-2 ####[facility]ORYCLIA [id number] [place] [address] [place] Platelets (Bld) [#/Vol] 354 10*3/uL Normal 150-400 [facility] Comment on above: Order Comment: Speci men Type: BLOOD SPECIMENOrdering Facility: [facility] Address: [address] [place] [address] Performed By: #### 5 8410-2 ####[facility]ORATORYCLIA [id number] [place] [address] [place] RBC (Bld) [#/Vol] 3.20 10*6/uL Low 4.20-6.00 [facility] Comment on above: Order Comment: Speci men Type: BLOOD SPECIMENOrdering Facility: [facility] Address: [address] [place] [address] Performed By: #### 5 8410-2 ####[facility] LABORATORYCLIA [id number] [address] [place] [facility] WBC (Bld) [#/Vol] 9.41 10*3/uL Normal 3.70-11.00 [facility] Comment on above: Order Comment: Speci men Type: BLOOD SPECIMENOrdering Facility: [facility] Address: [address] [place] [address] Performed By: #### 5 8410-2 ####[facility]ATORYCLIA [id number] [address] [place] CONSULT PROGon 07-14-[address] [facility] Magnesium SerPl-mCncon 07-14 Magnesium [Mass/Vol] 2.2 mg/dL Normal 1.7-2.3 [facility] Comment on above: Order Comment: Speci men Type: BLOOD SPECIMENOrdering Facility: [facility] Address: [address] [place] [address] Performed By: #### 1 9123-9, 2777-1, 16760-6 ####[facility]ATORYCLIA [id number] [address] [place] NURSING PROGon 07-14-[address] [facility] Phosphate SerPl-mCncon 07-14 Phosphate [Mass/Vol] 3.6 mg/dL Normal 2.7-4.8 [facility] Comment on above: Order Comment: Speci men Type: BLOOD SPECIMENOrdering Facility: [facility] Address: [address] [place] [address] Performed By: #### 1 9123-9, 2777-1, 40971-6 ####[facility]ATORYCLIA [id number] [address] [place] aPTT PPPon 07-14-2021 aPTT Coag (PPP) [Time] 62.9 s High 23.0-32.4 [facility] Comment on above: Order Comment: Speci men Type: BLOOD SPECIMENOrdering Facility: [facility] Address: [address] [place] [address] Performed By: #### 1 4979-9 ####[facility]ATORYCLIA [id number] [address] [place] aPTT Coag (PPP) [Time] 55.2 s High 23.0-32.4 [facility] Comment on above: Order Comment: Speci men Type: BLOOD SPECIMENOrdering Facility: [facility] Address: [address] [place] [address] Performed By: #### 1 4979-9 ####[facility]ATORYCLIA [id number] [place] [address] [place] Basic metabolic 2000 panelon 07-13-2021 Anion gap [Moles/Vol] 10 mmol/L Normal 9-18 [facility] Comment on above: Order Comment: Speci men Type: BLOOD SPECIMENOrdering Facility: [facility] Address: [address] [place] [address] Performed By: #### 1 9123-9, 2777-1, 37840-1 ####[facility]ATORYCLIA [id number] [address] STATES OF [facility] Calcium [Mass/Vol] 8.5 mg/dL Normal 8.5-10.2 [facility] Comment on above: Order Comment: Speci men Type: BLOOD SPECIMENOrdering Facility: [facility] Address: [address] [place] [address] Performed By: #### 1 9123-9, 2777-1, 87356-0 ####[facility]ATORYCLIA [id number] [place] [address] [place] Chloride [Moles/Vol] 98 mmol/L Normal 97-105 [facility] Comment on above: Order Comment: Speci men Type: BLOOD SPECIMENOrdering Facility: [facility] Address: [address] [place] [address] Performed By: #### 1 9123-9, 27711-04, 94633-1 ####[facility]ATORYCLIA [id number] [address] STATES OF [facility] CO2 [Moles/Vol] 32 mmol/L High 22-30 [facility] Comment on above: Order Comment: Speci men Type: BLOOD SPECIMENOrdering Facility: [facility] Address: [address] [place] [address] Performed By: #### 1 9123-9, 27711-04, 86203-2 ####[facility]ATORYCLIA [id number] [address] [place] Creatinine [Mass/Vol] 0.75 mg/dL Normal 0.73-1.22 [facility] Comment on above: Order Comment: Speci men Type: BLOOD SPECIMENOrdering Facility: [facility] Address: [address] [place] [address] Performed By: #### 1 9123-9, 2777, 70770-4 ####[facility]ATORYCLIA [id number] [address] [place] ESTIMATED GLOMERULAR FILTRATION RATE 98 mL/min/1.73m??? Normal >=60 [facility] Comment on above: Order Comment: Speci men Type: BLOOD SPECIMENOrdering Facility: [facility] Address: [address] [id number] Result Comment: Luzmaria mated Glomerular Filtration Rate [...] GFR. Performed By: #### 1 9123-9, 2777-1, 67832-0 ####[facility]ATORYCLIA [id number] [place] [address] [place] Glucose [Mass/Vol] 118 mg/dL High 74-99 [facility] Comment on above: Order Comment: Shira feldman Type: BLOOD SPECIMENOrdering Facility: [facility] Address: [address] [place] [address] Result Comment: The [place] [employer] (ADA) provides guidance for cutoff [...] Standards of Medical Care in Diabetes 2016, [place] [employer]. Diabetes Care. 2016.39(Suppl 1). Performed By: #### 1 9123-9, 2777-1, 37983-9 ####[facility]ATORYCLIA [id number] [place] [address] [place] Potassium [Moles/Vol] 3.6 mmol/L Low 3.7-5.1 [facility] Comment on above: Order Comment: Shira feldman Type: BLOOD SPECIMENOrdering Facility: [facility] Address: [address] [phone] Performed By: #### 1 9123-9, 2777-1, 30961-7 ####[facility]ATORYCLIA [id number] [address] Sodium [Moles/Vol] 140 mmol/L Normal 136-144 [facility] Comment on above: Order Comment: Speci men Type: BLOOD SPECIMENOrdering Facility: [facility] Address: [address] [place] [address] Performed By: #### 1 9123-9, 2777-, 16034-7 ####[facility]ATORYCLIA [id number] [address] STATES [facility] Urea nitrogen [Mass/Vol] 15 mg/dL Normal 9-24 [facility] Comment on above: Order Comment: Speci men Type: BLOOD SPECIMENOrdering Facility: [facility] Address: [address] [place] [address] Performed By: #### 1 9123-9, 2777, 14755-2 ####[facility]ATORYCLIA [id number] [address] CASE MANAGEMon 07-13-[address] [facility] CBC panel Auto (Bld)on 07-13 Erythrocyte distribution width (RBC) [Ratio] 16.2 % High 11.5-15.0 [facility] Comment on above: Order Comment: Speci men Type: BLOOD SPECIMENOrdering Facility: [facility] Address: [address] [place] [address] Performed By: #### 5 8410-2 ####[facility]ATORYCLIA [id number] [address] Hematocrit (Bld) [Volume fraction] 29.5 % Low 39.0-51.0 [facility] Comment on above: Order Comment: Speci men Type: BLOOD SPECIMENOrdering Facility: [facility] Address: [address] [place] [address] Performed By: #### 5 8410-2 ####[facility]ATORYCLIA [id number] [address] STATES OF [facility] Hemoglobin (Bld) [Mass/Vol] 8.9 g/dL Low 13.0-17.0 [facility] Comment on above: Order Comment: Speci men Type: BLOOD SPECIMENOrdering Facility: [facility] Address: [address] [place] [address] Performed By: #### 5 8410-2 ####[facility]ATORYCLIA [id number] [address] MCH (RBC) [Entitic mass] 27.8 pg Normal 26.0-34.0 [facility] Comment on above: Order Comment: Speci men Type: BLOOD SPECIMENOrdering Facility: [facility] Address: [address] [place] [address] Performed By: #### 5 8410-2 ####[facility]ATORYCLIA [id number] [address] MCHC (RBC) [Mass/Vol] 30.2 g/dL Low 30.5-36.0 [facility] Comment on above: Order Comment: Speci men Type: BLOOD SPECIMENOrdering Facility: [facility] Address: [address] [place] [address] Performed By: #### 5 8410-2 ####[facility]ATORYCLIA [id number] [address] MCV (RBC) [Entitic vol] 92.2 fL Normal 80.0-100.0 [facility] Comment on above: Order Comment: Speci men Type: BLOOD SPECIMENOrdering Facility: [facility] Address: [address] [place] [address] Performed By: #### 5 8410-2 ####[facility]ATORYCLIA [id number] [address] Nucleated RBC (Bld) [#/Vol] 10*3/uL Normal <0.01 [facility] Comment on above: Order Comment: Speci men Type: BLOOD SPECIMENOrdering Facility: [facility] Address: [address] [place] [address] Performed By: #### 5 8410-2 ####[facility]ATORYCLIA [id number] [address] [place] Platelet mean volume (Bld) [Entitic vol] 9.8 fL Normal 9.0-12.7 [facility] Comment on above: Order Comment: Speci men Type: BLOOD SPECIMENOrdering Facility: [facility] Address: [address] [place] [address] Performed By: #### 5 8410-2 ####[facility]ATORYCLIA [id number] [address] [place] Platelets (Bld) [#/Vol] 356 10*3/uL Normal 150-400 [facility] Comment on above: Order Comment: Speci men Type: BLOOD SPECIMENOrdering Facility: [facility] Address: [address] [place] [address] Performed By: #### 5 8410-2 ####[facility]ATORYCLIA [id number] [place] [address] [place] RBC (Bld) [#/Vol] 3.20 10*6/uL Low 4.20-6.00 [facility] Comment on above: Order Comment: Speci men Type: BLOOD SPECIMENOrdering Facility: [facility] Address: [address] [place], [place] [address] Performed By: #### 5 8410-2 ####[facility]ATORYCLIA [id number] [address] [place] WBC (Bld) [#/Vol] 9.20 10*3/uL Normal 3.70-11.00 [facility] Comment on above: Order Comment: Speci men Type: BLOOD SPECIMENOrdering Facility: [facility] Address: [address] [place] [address] Performed By: #### 5 8410-2 ####[facility]ATORYCLIA [id number] [address] [place] CONSULT PROGon 07-13-[address] [facility] CONSULT PROG Normal [facility] CONSULT PROG Normal [facility] Magnesium SerPl-mCncon 07-13 Magnesium [Mass/Vol] 2.1 mg/dL Normal 1.7-2.3 [facility] Comment on above: Order Comment: Speci men Type: BLOOD SPECIMENOrdering Facility: [facility] Address: [address] [place] [address] Performed By: #### 1 9123-9, 2777-1, 04973-4 ####[facility]ATORYCLIA [id number] [address] Phosphate SerPl-mCncon 07-13 Phosphate [Mass/Vol] 3.7 mg/dL Normal 2.7-4.8 [facility] Comment on above: Order Comment: Speci men Type: BLOOD SPECIMENOrdering Facility: [facility] Address: [address] [place] [address] Performed By: #### 1 9123-9, 2777-1, 67073-7 ####[facility]CL[facility] [id number] [address] THERAPY NTon 07-13-[address] [facility] THERAPY NT Normal [facility] Vancomycin random [Mass/Vol] on 07-13-2021 Vancomycin [Mass/Vol] 31.7 ug/mL High 10.0-20.0 [facility] Comment on above: Order Comment: Speci men Type: BLOOD SPECIMENOrdering Facility: [facility] Address: [address] [place] [address] Result Comment: Refe rence ranges and high/low indicator flags are provided as general guidelines only. The treating physician must determine appropriate target levels/dosing based on the specific clinical situation. Performed By: #### 4 091-5 ####[facility]ATORYCLIA [id number] [address] [place] aPTT PPPon 07-13-2021 aPTT Coag (PPP) [Time] 47.3 s High 23.0-32.4 [facility] Comment on above: Order Comment: Speci men Type: BLOOD SPECIMENOrdering Facility: [facility] Address: [address] [place] [address] Performed By: #### 1 4979-9 ####[facility]ATORYCLIA [id number] [address] aPTT Coag (PPP) [Time] 51.2 s High 23.0-32.4 [facility] Comment on above: Order Comment: Speci men Type: BLOOD SPECIMENOrdering Facility: [facility] Address: [address] [place] [address] Performed By: #### 1 4979-9 ####[facility]ATORYCLIA [id number] [address] aPTT Coag (PPP) [Time] 47.5 s High 23.0-32.4 [facility] Comment on above: Order Comment: Speci men Type: BLOOD SPECIMENOrdering Facility: [facility] Address: [address] [place] [address] Performed By: #### 1 4979-9 ####[facility]ATORYCLIA [id number] [address] STATES OF [facility] Basic metabolic 2000 panelon 07-12-2021 Anion gap [Moles/Vol] 7 mmol/L Low 9-18 [facility] Comment on above: Order Comment: Speci men Type: BLOOD SPECIMENOrdering Facility: [facility] Address: [address] [place] [address] Performed By: #### 1 9123-9, 2777-1, 47557-0 ####[facility]ATORYCLIA [id number] [address] STATES OF [facility] Calcium [Mass/Vol] 8.3 mg/dL Low 8.5-10.2 [facility] Comment on above: Order Comment: Speci men Type: BLOOD SPECIMENOrdering Facility: [facility] Address: [address] [place] [address] Performed By: #### 1 9123-9, 27711-04, 50665-0 ####[facility]ATORYCLIA [id number] [place] [address] [place] Chloride [Moles/Vol] 101 mmol/L Normal 97-105 [facility] Comment on above: Order Comment: Speci men Type: BLOOD SPECIMENOrdering Facility: [facility] Address: [address] [place] [address] Performed By: #### 1 9123-9, 2776-05, 19620-6 ####[facility]ATORYCLIA [id number] [address] [place] CO2 [Moles/Vol] 32 mmol/L High 22-30 [facility] Comment on above: Order Comment: Speci men Type: BLOOD SPECIMENOrdering Facility: [facility] Address: [address] [place] [address] Performed By: #### 1 9123-9, 2776-05, 50958-7 ####[facility]ATORYCLIA [id number] [address] [place] Creatinine [Mass/Vol] 0.70 mg/dL Low 0.73-1.22 [facility] Comment on above: Order Comment: Speci men Type: BLOOD SPECIMENOrdering Facility: [facility] Address: [address] [place] [address] Performed By: #### 1 9123-9, 27711-04, 31557-9 ####[facility]ATORYCLIA [id number] [address] [place] ESTIMATED GLOMERULAR FILTRATION RATE 100 mL/min/1.73m??? Normal >=60 [facility] Comment on above: Order Comment: Speci men Type: BLOOD SPECIMENOrdering Facility: [facility] Address: [address] [place] [address] Result Comment: Luzmaria mated Glomerular Filtration Rate [...] GFR. Performed By: #### 1 9123-9, 2777-1, 01185-7 ####[facility]ATORYCLIA [id number] [place] [address] [place] Glucose [Mass/Vol] 104 mg/dL High 74-99 [facility] Comment on above: Order Comment: Shira feldman Type: BLOOD SPECIMENOrdering Facility: [facility] Address: [address] [place] [address] Result Comment: The [place] [employer] (ADA) provides guidance for cutoff [...] Standards of Medical Care in Diabetes 2016, [place] [employer]. Diabetes Care. 2016.39(Suppl 1). Performed By: #### 1 9123-9, 2777-, 84320-6 ####[facility] LABORATORYIA [id number] [place] [address] [place] Potassium [Moles/Vol] 3.7 mmol/L Normal 3.7-5.1 [facility] Comment on above: Order Comment: Shira feldman Type: BLOOD SPECIMENOrdering Facility: [facility] Address: [address] [place] [address] Performed By: #### 1 9123-9, 2777-, 77044-1 ####[facility]ATORYCLIA [id number] [address] STATES [facility] Sodium [Moles/Vol] 140 mmol/L Normal 136-144 [facility] Comment on above: Order Comment: Speci men Type: BLOOD SPECIMENOrdering Facility: [facility] Address: [address] [place] [address] Performed By: #### 1 9123-9, 2777-1, 74115-1 ####[facility]ATORYCLIA [id number] [address] STATES OF [facility] Urea nitrogen [Mass/Vol] 12 mg/dL Normal 9-24 [facility] Comment on above: Order Comment: Speci men Type: BLOOD SPECIMENOrdering Facility: [facility] Address: [address] [place] [address] Performed By: #### 1 9123-9, 2777-1, 36750-5 ####[facility]ATORYCLIA [id number] [address] CBC panel Auto (Bld)on 07-12 Erythrocyte distribution width (RBC) [Ratio] 16.1 % High 11.5-15.0 [facility] Comment on above: Order Comment: Speci men Type: BLOOD SPECIMENOrdering Facility: [facility] Address: [address] [place] [address] Performed By: #### 5 8410-2 ####[facility]ATORYCLIA [id number] [address] [place] Hematocrit (Bld) [Volume fraction] 28.2 % Low 39.0-51.0 [facility] Comment on above: Order Comment: Speci men Type: BLOOD SPECIMENOrdering Facility: [facility] Address: [address] [place] [address] Performed By: #### 5 8410-2 ####[facility]ATORYCLIA [id number] [address] [place] Hemoglobin (Bld) [Mass/Vol] 8.5 g/dL Low 13.0-17.0 [facility] Comment on above: Order Comment: Speci men Type: BLOOD SPECIMENOrdering Facility: [facility] Address: [address] [place] [address] Performed By: #### 5 8410-2 ####[facility]ATORYCLIA [id number] [address] MCH (RBC) [Entitic mass] 26.8 pg Normal 26.0-34.0 [facility] Comment on above: Order Comment: Speci men Type: BLOOD SPECIMENOrdering Facility: [facility] Address: [address] [place] [address] Performed By: #### 5 8410-2 ####[facility]ORYCLIA [id number] [address] MCHC (RBC) [Mass/Vol] 30.1 g/dL Low 30.5-36.0 [facility] Comment on above: Order Comment: Speci men Type: BLOOD SPECIMENOrdering Facility: [facility] Address: [address] [place] [address] Performed By: #### 5 8410-2 ####[facility]ATORYCLIA [id number] [address] MCV (RBC) [Entitic vol] 89.0 fL Normal 80.0-100.0 [facility] Comment on above: Order Comment: Speci men Type: BLOOD SPECIMENOrdering Facility: [facility] Address: [address] [place] [address] Performed By: #### 5 8410-2 ####[facility]ATORYCLIA [id number] [address] Nucleated RBC (Bld) [#/Vol] 10*3/uL Normal <0.01 [facility] Comment on above: Order Comment: Speci men Type: BLOOD SPECIMENOrdering Facility: [facility] Address: [address] [place] [address] Performed By: #### 5 8410-2 ####[facility]ATORYCLIA [id number] [address] [place] Platelet mean volume (Bld) [Entitic vol] 9.6 fL Normal 9.0-12.7 [facility] Comment on above: Order Comment: Speci men Type: BLOOD SPECIMENOrdering Facility: [facility] Address: [address] [place] [address] Performed By: #### 5 8410-2 ####[facility]ATORYCLIA [id number] [place] [address] [place] Platelets (Bld) [#/Vol] 340 10*3/uL Normal 150-400 [facility] Comment on above: Order Comment: Speci men Type: BLOOD SPECIMENOrdering Facility: [facility] Address: [address] [place] [address] Performed By: #### 5 8410-2 ####[facility]ATORYCLIA [id number] [place] [address] [place] RBC (Bld) [#/Vol] 3.17 10*6/uL Low 4.20-6.00 [facility] Comment on above: Order Comment: Speci men Type: BLOOD SPECIMENOrdering Facility: [facility] Address: [address] [place] [address] Performed By: #### 5 8410-2 ####[facility]ATORYCLIA [id number] [place] [address] [place] WBC (Bld) [#/Vol] 8.66 10*3/uL Normal 3.70-11.00 [facility] Comment on above: Order Comment: Speci men Type: BLOOD SPECIMENOrdering Facility: [facility] Address: [address] [place] [address] Performed By: #### 5 8410-2 ####[facility]ATORYCLIA [id number] [address] [place] CONSULTon 07-12-[address] [facility] CONSULT PROGon 07-12-[address] [facility] Magnesium SerPl-mCncon 07-12 Magnesium [Mass/Vol] 2.1 mg/dL Normal 1.7-2.3 [facility] Comment on above: Order Comment: Speci men Type: BLOOD SPECIMENOrdering Facility: [facility] Address: [address] [place] [address] Performed By: #### 1 9123-9, 2777-1, 24169-5 ####[facility]ATORYCLIA [id number] [address] OF [facility] NURSING PROGon 07-12-[address] [facility] Phosphate SerPl-mCncon 07-12 Phosphate [Mass/Vol] 3.1 mg/dL Normal 2.7-4.8 [facility] Comment on above: Order Comment: Speci men Type: BLOOD SPECIMENOrdering Facility: [facility] Address: [address] [place] [address] Performed By: #### 1 9123-9, 2777-1, 13213-3 ####[facility]ORYCLIA [id number] [address] OF [facility] THERAPY NTon 07-12-[address] [facility] aPTT PPPon 07-12-2021 aPTT Coag (PPP) [Time] 49.5 s High 23.0-32.4 [facility] Comment on above: Order Comment: Speci men Type: BLOOD SPECIMENOrdering Facility: [facility] Address: [address] [place] [address] Performed By: #### 1 4979-9 ####[facility]ORYCLIA [id number] [address] aPTT Coag (PPP) [Time] 68.0 s High 23.0-32.4 [facility] Comment on above: Order Comment: Speci men Type: BLOOD SPECIMENOrdering Facility: [facility] Address: [address] [place] [address] Performed By: #### 1 4979-9 ####[facility]ORYCLIA [id number] [place] [address] [place] aPTT Coag (PPP) [Time] 80.0 s High 23.0-32.4 [facility] Comment on above: Order Comment: Speci men Type: BLOOD SPECIMENOrdering Facility: [facility] Address: [address] [place] [address] Performed By: #### 1 4979-9 ####[facility]ORYCLIA [id number] [address] [place] CASE MGT INIT ASSESon 2021 CASE MGT INIT ASSES Normal [facility] CBC panel Auto (Bld)on 07-11 Erythrocyte distribution width (RBC) [Ratio] 16.3 % High 11.5-15.0 [facility] Comment on above: Order Comment: Speci men Type: BLOOD SPECIMENOrdering Facility: [facility] Address: [address] [place] [address] Performed By: #### 5 8410-2 ####[facility] [id number] [address] [place] [facility] Hematocrit (Bld) [Volume fraction] 28.3 % Low 39.0-51.0 [facility] Comment on above: Order Comment: Speci men Type: BLOOD SPECIMENOrdering Facility: [facility] Address: [address] [place] [address] Performed By: #### 5 8410-2 ####[facility]ORYCL[facility] [id number] [address] [place] Hemoglobin (Bld) [Mass/Vol] 8.8 g/dL Low 13.0-17.0 [facility] Comment on above: Order Comment: Speci men Type: BLOOD SPECIMENOrdering Facility: [facility] Address: [address] [place] [address] Performed By: #### 5 8410-2 ####[facility]ORATORYCLIA [id number] [address] [place] MCH (RBC) [Entitic mass] 27.4 pg Normal 26.0-34.0 [facility] Comment on above: Order Comment: Speci men Type: BLOOD SPECIMENOrdering Facility: [facility] [facility] Address: [address] [place] [address] Performed By: #### 5 8410-2 ####[facility]ATORYCLIA [id number] [place] [address] [place] MCHC (RBC) [Mass/Vol] 31.1 g/dL Normal 30.5-36.0 [facility] Comment on above: Order Comment: Speci men Type: BLOOD SPECIMENOrdering Facility: [facility] Address: [address] [place] [address] Performed By: #### 5 8410-2 ####[facility]ATORYCLIA [id number] [address] [place] MCV (RBC) [Entitic vol] 88.2 fL Normal 80.0-100.0 [facility] Comment on above: Order Comment: Speci men Type: BLOOD SPECIMENOrdering Facility: [facility] Address: [address] [place] [address] Performed By: #### 5 8410-2 ####[facility]ATORYCLIA [id number] [address] [place] Nucleated RBC (Bld) [#/Vol] 10*3/uL Normal <0.01 [facility] Comment on above: Order Comment: Speci men Type: BLOOD SPECIMENOrdering Facility: [facility] Address: [address] [place] [address] Performed By: #### 5 8410-2 ####[facility]ORYCLIA [id number] [address] [place] Platelet mean volume (Bld) [Entitic vol] 9.7 fL Normal 9.0-12.7 [facility] Comment on above: Order Comment: Speci men Type: BLOOD SPECIMENOrdering Facility: [facility] Address: [address] [place] [address] Performed By: #### 5 8410-2 ####[facility]ORYCLIA [id number] [address] Platelets (Bld) [#/Vol] 315 10*3/uL Normal 150-400 [facility] Comment on above: Order Comment: Speci men Type: BLOOD SPECIMENOrdering Facility: [facility] Address: [address] [place] [address] Performed By: #### 5 8410-2 ####[facility]ORYCLIA [id number] [address] STATES OF [facility] RBC (Bld) [#/Vol] 3.21 10*6/uL Low 4.20-6.00 [facility] Comment on above: Order Comment: Speci men Type: BLOOD SPECIMENOrdering Facility: [facility] Address: [address] [place] [address] Performed By: #### 5 8410-2 ####[facility]ORYCLIA [id number] [address] WBC (Bld) [#/Vol] 9.18 10*3/uL Normal 3.70-11.00 [facility] Comment on above: Order Comment: Speci men Type: BLOOD SPECIMENOrdering Facility: [facility] Address: [address] [place] [address] Performed By: #### 5 8410-2 ####[facility]ORYCLIA [id number] [address] CONSULT PROGon 07-11-[address] [facility] CT BRAIN WO IVCONon 07-12-19 CT BRAIN WO IVCON Normal [facility] Magnesium SerPl-mCncon 07-11 Magnesium [Mass/Vol] 2.1 mg/dL Normal 1.7-2.3 [facility] Comment on above: Order Comment: Speci men Type: BLOOD SPECIMENOrdering Facility: [facility] Address: [address] [place] [address] Performed By: #### 1 9123-9, 2777-1 ####[facility]ORYCLIA [id number] [address] NURSING PROGon 07-11-[address] [facility] NURSING PROG Normal [facility] Phosphate SerPl-mCncon 07-11 Phosphate [Mass/Vol] 3.4 mg/dL Normal 2.7-4.8 [facility] Comment on above: Order Comment: Speci men Type: BLOOD SPECIMENOrdering Facility: [facility] Address: [address] [place] [address] Performed By: #### 1 9123-9, 2777-1 ####[facility]ORYCLIA [id number] [address] THERAPY NTon 07-11-[address] [facility] Vancomycin random [Mass/Vol] on 07-11-2021 Vancomycin [Mass/Vol] 28.6 ug/mL High 10.0-20.0 [facility] Comment on above: Order Comment: Speci men Type: BLOOD SPECIMENOrdering Facility: [facility] Address: [address] [place] [address] Result Comment: Refe rence ranges and high/low indicator flags are provided as general guidelines only. The treating physician must determine appropriate target levels/dosing based on the specific clinical situation. Performed By: #### 4 091-5 ####[facility]ATORYCLIA [id number] [address] aPTT PPPon 07-11-2021 aPTT Coag (PPP) [Time] 62.0 s High 23.0-32.4 [facility] Comment on above: Order Comment: Speci men Type: BLOOD SPECIMENOrdering Facility: [facility] Address: [address] [place] [address] Performed By: #### 1 4979-9 ####[facility]ATORYCLIA [id number] [address] aPTT Coag (PPP) [Time] 52.7 s High 23.0-32.4 [facility] Comment on above: Order Comment: Speci men Type: BLOOD SPECIMENOrdering Facility: [facility] Address: [address] [place] [address] Performed By: #### 1 4979-9 ####[facility]ORYCLIA [id number] [place] [address] [place] aPTT Coag (PPP) [Time] 29.9 s Normal 23.0-32.4 [facility] Comment on above: Order Comment: Speci men Type: BLOOD SPECIMENOrdering Facility: [facility] Address: [address] [place] [address] Performed By: #### 1 4979-9 ####[facility]ORYCLIA [id number] [place] [address] [place] Basic metabolic 2000 panelon 07-10-2021 Anion gap [Moles/Vol] 14 mmol/L Normal 9-18 [facility] Comment on above: Order Comment: Speci men Type: BLOOD SPECIMENOrdering Facility: [facility] Address: [address] [place] [address] Performed By: #### 1 9123-9, 2777-1, 73692-1 ####[facility]CL[facility] [id number] [place] [address] [place] Calcium [Mass/Vol] 8.5 mg/dL Normal 8.5-10.2 [facility] Comment on above: Order Comment: Speci men Type: BLOOD SPECIMENOrdering Facility: [facility] Address: [address] [place] [address] Performed By: #### 1 9123-9, 2777-1, 87162-3 ####[facility]ATORYCLIA [id number] [address] [place] Chloride [Moles/Vol] 100 mmol/L Normal 97-105 [facility] Comment on above: Order Comment: Speci men Type: BLOOD SPECIMENOrdering Facility: [facility] Address: [address] [place] [address] Performed By: #### 1 9123-9, 2777-1, 19657-7 ####[facility]ISCLIA [id number] [address] STATES OF [facility] CO2 [Moles/Vol] 27 mmol/L Normal 22-30 [facility] Comment on above: Order Comment: Speci men Type: BLOOD SPECIMENOrdering Facility: [facility] Address: [address] [place] [address] Performed By: #### 1 9123-9, 2777, 18769-2 ####[facility]ISCLIA [id number] [address] Creatinine [Mass/Vol] 0.66 mg/dL Low 0.73-1.22 [facility] Comment on above: Order Comment: Speci men Type: BLOOD SPECIMENOrdering Facility: [facility] Address: [address] [place] [address] Performed By: #### 1 9123-9, 2777, 12462-2 ####[facility] H[facility]PITALIA [id number] [address] ESTIMATED GLOMERULAR FILTRATION RATE 102 mL/min/1.73m??? Normal >=60 [facility] Comment on above: Order Comment: Speci men Type: BLOOD SPECIMENOrdering Facility: [facility] Address: [address] [place] [address] Result Comment: Luzmaria mated Glomerular Filtration Rate [...] GFR. Performed By: #### 1 9123-9, 2777-1, 63319-5 ####[facility]ATORYCLIA [id number] [place] [address] [place] Glucose [Mass/Vol] 93 mg/dL Normal 74-99 [facility] Comment on above: Order Comment: Shira feldman Type: BLOOD SPECIMENOrdering Facility: [facility] Address: [address] [place], [place] [address] Result Comment: The [place] [employer] (ADA) provides guidance for cutoff [...] Standards of Medical Care in Diabetes 2016, [place] [employer]. Diabetes Care. 2016.39(Suppl 1). Performed By: #### 1 9123-9, 2777-, 90084-3 ####[facility]ATORYCLIA [id number] [place] [address] [place] Potassium [Moles/Vol] 3.5 mmol/L Low 3.7-5.1 [facility] Comment on above: Order Comment: Shira feldman Type: BLOOD SPECIMENOrdering Facility: [facility] Address: [address] [place], [place] [address] Performed By: #### 1 9123-9, 2777-, 73987-2 ####[facility]ATORYCLIA [id number] [place] [address] [place] Sodium [Moles/Vol] 141 mmol/L Normal 136-144 [facility] Comment on above: Order Comment: Shira feldman Type: BLOOD SPECIMENOrdering Facility: [facility] Address: [address] [place], [place] [address] Performed By: #### 1 9123-9, 2777-, 95073-2 ####[facility]ORYCLIA [id number] [place] [address] [place] Urea nitrogen [Mass/Vol] 11 mg/dL Normal 9-24 [facility] Comment on above: Order Comment: Speci men Type: BLOOD SPECIMENOrdering Facility: [facility] Address: [address] [place] [address] Performed By: #### 1 9123-9, 2777-1, 93122-5 ####[facility]ATORYCLIA [id number] [address] STATES [facility] CBC panel Auto (Bld)on 07-10 Erythrocyte distribution width (RBC) [Ratio] 16.2 % High 11.5-15.0 [facility] Comment on above: Order Comment: Speci men Type: BLOOD SPECIMENOrdering Facility: [facility] Address: [address] [place] [address] Performed By: #### 5 8410-2 ####[facility]ORYCLIA [id number] [address] STATES [facility] Hematocrit (Bld) [Volume fraction] 30.6 % Low 39.0-51.0 [facility] Comment on above: Order Comment: Speci men Type: BLOOD SPECIMENOrdering Facility: [facility] Address: [address] [place] [address] Performed By: #### 5 8410-2 ####[facility]ORYCLIA [id number] [address] STATES OF [facility] Hemoglobin (Bld) [Mass/Vol] 9.6 g/dL Low 13.0-17.0 [facility] Comment on above: Order Comment: Speci men Type: BLOOD SPECIMENOrdering Facility: [facility] Address: [address] [place] [address] Performed By: #### 5 8410-2 ####[facility]ATORYCLIA [id number] [address] MCH (RBC) [Entitic mass] 28.3 pg Normal 26.0-34.0 [facility] Comment on above: Order Comment: Speci men Type: BLOOD SPECIMENOrdering Facility: [facility] Address: [address] [place] [address] Performed By: #### 5 8410-2 ####[facility]ORYCLIA [id number] [address] MCHC (RBC) [Mass/Vol] 31.4 g/dL Normal 30.5-36.0 [facility] Comment on above: Order Comment: Speci men Type: BLOOD SPECIMENOrdering Facility: [facility] Address: [address] [place] [address] Performed By: #### 5 8410-2 ####[facility]ATORYCLIA [id number] [address] [place] MCV (RBC) [Entitic vol] 90.3 fL Normal 80.0-100.0 [facility] Comment on above: Order Comment: Speci men Type: BLOOD SPECIMENOrdering Facility: [facility] Address: [address] [place] [address] Performed By: #### 5 8410-2 ####[facility]ORYCLIA [id number] [address] OF [facility] Nucleated RBC (Bld) [#/Vol] 10*3/uL Normal <0.01 [facility] Comment on above: Order Comment: Speci men Type: BLOOD SPECIMENOrdering Facility: [facility] Address: [address] [place] [address] Performed By: #### 5 8410-2 ####[facility]ORYCLIA [id number] [address] Platelet mean volume (Bld) [Entitic vol] 9.7 fL Normal 9.0-12.7 [facility] Comment on above: Order Comment: Speci men Type: BLOOD SPECIMENOrdering Facility: [facility] Address: [address] [place] [address] Performed By: #### 5 8410-2 ####[facility]ORYCLIA [id number] [address] [place] Platelets (Bld) [#/Vol] 306 10*3/uL Normal 150-400 [facility] Comment on above: Order Comment: Speci men Type: BLOOD SPECIMENOrdering Facility: [facility] Address: [address] [place] [address] Performed By: #### 5 8410-2 ####[facility]ORYCLIA [id number] [place] [address] [place] RBC (Bld) [#/Vol] 3.39 10*6/uL Low 4.20-6.00 [facility] Comment on above: Order Comment: Speci men Type: BLOOD SPECIMENOrdering Facility: [facility] Address: [address] [place] [address] Performed By: #### 5 8410-2 ####[facility]ORYCLIA [id number] [address] STATES OF [facility] WBC (Bld) [#/Vol] 9.81 10*3/uL Normal 3.70-11.00 [facility] Comment on above: Order Comment: Speci men Type: BLOOD SPECIMENOrdering Facility: [facility] Address: [address] [place] [address] Performed By: #### 5 8410-2 ####[facility]ATORYCLIA [id number] [address] [place] CONSULTon 07-10-[address] [facility] CONSULT Normal [facility] Magnesium SerPl-mCncon 07-10 Magnesium [Mass/Vol] 1.9 mg/dL Normal 1.7-2.3 [facility] Comment on above: Order Comment: Speci men Type: BLOOD SPECIMENOrdering Facility: [facility] Address: [address] [place] [address] Performed By: #### 1 9123-9, 2777-1, 38627-7 ####[facility]ATORYCLIA [id number] [place] [address] [place] NURSING PROGon 07-10-[address] [facility] NURSING PROG Normal [facility] NUTRITIONon 07-10-[address] [facility] Phosphate SerPl-mCncon 07-10 Phosphate [Mass/Vol] 3.6 mg/dL Normal 2.7-4.8 [facility] Comment on above: Order Comment: Speci men Type: BLOOD SPECIMENOrdering Facility: [facility] Address: [address] [place] [address] Performed By: #### 1 9123-9, 2777-1, 20466-6 ####[facility]ATORYCLIA [id number] [place] [address] [place] US DVT LOWER BILon US DVT LOWER RAINER Normal [facility] aPTT PPPon 07-10-2021 aPTT Coag (PPP) [Time] 28.8 s Normal 23.0-32.4 [facility] Comment on above: Order Comment: Speci men Type: BLOOD SPECIMENOrdering Facility: [facility] Address: [address] [place] [address] Performed By: #### 1 4979-9 ####[facility]ATORYCLIA [id number] [address] aPTT Coag (PPP) [Time] 28.4 s Normal 23.0-32.4 [facility] Comment on above: Order Comment: Speci men Type: BLOOD SPECIMENOrdering Facility: [facility] Address: [address] [place] [address] Performed By: #### 1 4979-9 ####[facility]ATORYCLIA [id number] [place] [address] [place] ALLIED HEALTHon 07-09-[address] [facility] Basic metabolic 2000 panelon 07-09-2021 Anion gap [Moles/Vol] 9 mmol/L Normal 9-18 [facility] Comment on above: Order Comment: Speci men Type: BLOOD SPECIMENOrdering Facility: [facility] Address: [address] [place] [address] Performed By: #### 1 9123-9, 2777, 60276-3 ####[facility]ATORYCLIA [id number] [place] [address] [place] Calcium [Mass/Vol] 8.3 mg/dL Low 8.5-10.2 [facility] Comment on above: Order Comment: Speci men Type: BLOOD SPECIMENOrdering Facility: [facility] Address: [address] [place] [address] Performed By: #### 1 9123-9, 27711-04, 22402-5 ####[facility]ORYCLIA [id number] [place] [address] [place] Chloride [Moles/Vol] 100 mmol/L Normal 97-105 [facility] Comment on above: Order Comment: Speci men Type: BLOOD SPECIMENOrdering Facility: [facility] Address: [address] [place] [address] Performed By: #### 1 9123-9, 27711-04, 97214-4 ####[facility]ORYCLIA [id number] [address] [place] CO2 [Moles/Vol] 29 mmol/L Normal 22-30 [facility] Comment on above: Order Comment: Speci men Type: BLOOD SPECIMENOrdering Facility: [facility] Address: [address] [place] [address] Performed By: #### 1 9123-9, 2776-05, 78863-2 ####[facility]ORYCLIA [id number] [place] [address] [place] Creatinine [Mass/Vol] 0.61 mg/dL Low 0.73-1.22 [facility] Comment on above: Order Comment: Speci men Type: BLOOD SPECIMENOrdering Facility: [facility] Address: [address] [place] [address] Performed By: #### 1 9123-9, 27711-04, 38441-8 ####[facility]ATORYCLIA [id number] [place] [address] [place] ESTIMATED GLOMERULAR FILTRATION RATE 104 mL/min/1.73m??? Normal >=60 [facility] Comment on above: Order Comment: Shira feldman Type: BLOOD SPECIMENOrdering Facility: [facility] Address: [address] [place], [place] [address] Result Comment: Luzmaria mated Glomerular Filtration Rate [...] GFR. Performed By: #### 1 9123-9, 2777-1, 75521-8 ####[facility] [id number] [place] [address] [place] Glucose [Mass/Vol] 106 mg/dL High 74-99 [facility] Comment on above: Order Comment: Shira feldman Type: BLOOD SPECIMENOrdering Facility: [facility] Address: [address] [place] [address] Result Comment: The [place] [employer] (ADA) provides guidance for cutoff [...] Standards of Medical Care in Diabetes 2016, [place] [employer]. Diabetes Care. 2016.39(Suppl 1). Performed By: #### 1 9123-9, 2777-1, 61578-8 ####[facility]ATORYCLIA [id number] [place] [address] [place] Potassium [Moles/Vol] 3.6 mmol/L Low 3.7-5.1 [facility] Comment on above: Order Comment: Speci men Type: BLOOD SPECIMENOrdering Facility: [facility] Address: [address] [place] [address] Performed By: #### 1 9123-9, 2777-, 05920-8 ####[facility]ORYCLIA [id number] [address] STATES OF [facility] Sodium [Moles/Vol] 138 mmol/L Normal 136-144 [facility] Comment on above: Order Comment: Speci men Type: BLOOD SPECIMENOrdering Facility: [facility] Address: [address] [place] [address] Performed By: #### 1 9123-9, 27711-04, 98617-1 ####[facility]ORYCLIA [id number] [address] STATES OF [facility] Urea nitrogen [Mass/Vol] 12 mg/dL Normal 9-24 [facility] Comment on above: Order Comment: Speci men Type: BLOOD SPECIMENOrdering Facility: [facility] Address: [address] [place] [address] Performed By: #### 1 9123-9, 27711-04, 54830-5 ####[facility]ORYCLIA [id number] [address] STATES OF [facility] CBC panel Auto (Bld)on 07-09 Erythrocyte distribution width (RBC) [Ratio] 16.2 % High 11.5-15.0 [facility] Comment on above: Order Comment: Speci men Type: BLOOD SPECIMENOrdering Facility: [facility] Address: [address] [place] [address] Performed By: #### 5 8410-2 ####[facility]ORYCLIA [id number] [address] Hematocrit (Bld) [Volume fraction] 29.0 % Low 39.0-51.0 [facility] Comment on above: Order Comment: Speci men Type: BLOOD SPECIMENOrdering Facility: [facility] Address: [address] [place] [address] Performed By: #### 5 8410-2 ####[facility]ORYCLIA [id number] [address] Hemoglobin (Bld) [Mass/Vol] 8.8 g/dL Low 13.0-17.0 [facility] Comment on above: Order Comment: Speci men Type: BLOOD SPECIMENOrdering Facility: [facility] Address: [address] [place] [address] Performed By: #### 5 8410-2 ####[facility]ORYCLIA [id number] [address] MCH (RBC) [Entitic mass] 27.0 pg Normal 26.0-34.0 [facility] Comment on above: Order Comment: Speci men Type: BLOOD SPECIMENOrdering Facility: [facility] Address: [address] [place] [address] Performed By: #### 5 8410-2 ####[facility]ORYCLIA [id number] [address] MCHC (RBC) [Mass/Vol] 30.3 g/dL Low 30.5-36.0 [facility] Comment on above: Order Comment: Speci men Type: BLOOD SPECIMENOrdering Facility: [facility] Address: [address] [place] [address] Performed By: #### 5 8410-2 ####[facility]ORYCLIA [id number] [address] MCV (RBC) [Entitic vol] 89.0 fL Normal 80.0-100.0 [facility] Comment on above: Order Comment: Speci men Type: BLOOD SPECIMENOrdering Facility: [facility] Address: [address] [place] [address] Performed By: #### 5 8410-2 ####[facility]ORYCLIA [id number] [address] Nucleated RBC (Bld) [#/Vol] 10*3/uL Normal <0.01 [facility] Comment on above: Order Comment: Speci men Type: BLOOD SPECIMENOrdering Facility: [facility] Address: [address] [place], [place] [address] Performed By: #### 5 8410-2 ####[facility]ORYCLIA [id number] [address] [place] Platelet mean volume (Bld) [Entitic vol] 9.8 fL Normal 9.0-12.7 [facility] Comment on above: Order Comment: Speci men Type: BLOOD SPECIMENOrdering Facility: [facility] Address: [address] [place] [address] Performed By: #### 5 8410-2 ####[facility]ORYCLIA [id number] [address] [place] Platelets (Bld) [#/Vol] 281 10*3/uL Normal 150-400 [facility] Comment on above: Order Comment: Speci men Type: BLOOD SPECIMENOrdering Facility: [facility] Address: [address] [place], [place] [address] Performed By: #### 5 8410-2 ####[facility]ORYCLIA [id number] [place] [address] [place] RBC (Bld) [#/Vol] 3.26 10*6/uL Low 4.20-6.00 [facility] Comment on above: Order Comment: Speci men Type: BLOOD SPECIMENOrdering Facility: [facility] Address: [address] [place], [place] [address] Performed By: #### 5 8410-2 ####[facility]ORYCLIA [id number] [address] [place] WBC (Bld) [#/Vol] 9.12 10*3/uL Normal 3.70-11.00 [facility] Comment on above: Order Comment: Speci men Type: BLOOD SPECIMENOrdering Facility: [facility] Address: [address] [place], [place] [id number] Performed By: #### 5 8410-2 ####[facility]ORATORYCLIA [id number] [address] OF [facility] CONSULT PROGon 07-09-[address] [facility] CONSULT PROG [address] [facility] HISTORY PHYSICALon HISTORY PHYSICAL Normal [facility] Magnesium SerPl-mCncon 07-09 Magnesium [Mass/Vol] 1.9 mg/dL Normal 1.7-2.3 [facility] Comment on above: Order Comment: Speci men Type: BLOOD SPECIMENOrdering Facility: [facility] Address: [address] [place] [address] Performed By: #### 1 9123-9, 2777-1, 13531-9 ####[facility] LABORATORYCLIA [id number] [address] Phosphate SerPl-ncon 07-09 Phosphate [Mass/Vol] 3.6 mg/dL Normal 2.7-4.8 [facility] Comment on above: Order Comment: Speci men Type: BLOOD SPECIMENOrdering Facility: [facility] Address: [address] [place] [address] Performed By: #### 1 9123-9, 2777-1, 47363-9 ####[facility] LABORATORYCLIA [id number] [address] [place] THERAPY NTon 07-09-[address] [facility] XR ABDOMEN 1V SUPINEon 07-09 XR ABDOMEN 1V SUPINE Normal [facility] ALLIED HEALTHon 07-08-[address] [facility] ALLIED HEALTH Normal [facility] ALLIED HEALTH Normal [facility] ANES PRE-OPon 07-08-2021 ANES PRE-OP Normal [facility] BRIEF OP NOTon 07-08-[address] NOT Normal [facility] Bacteria Bld Culton 07-09-19 22 Bacteria identified Cx Nom (Bld) CULTURE, BLOOD: No growth [address] [facility] Comment on above: Performed By: #### 6 00-7 ####[facility] LABORATORYCLIA [id number] [address] Bacteria identified Cx Nom (Bld) CULTURE, BLOOD: No growth 5 days [facility] Comment on above: Performed By: #### 6 00-7 ####[facility] LABORATORYCLIA [id number] [address] Bacteria CSF Culton 07-09-19 22 Bacteria identified Cx Nom (CSF) CULTURE, CSF: No growth 14 days GRAM STAIN: No organisms seen No Polymorphonuclear Leukocytes Few Red Blood Cells Gram stain performed on cytospun specimen. Normal [facility] Comment on above: Performed By: #### 6 06-4 ####[facility] LABORATORYCLIA [id number] [address] Bacteria Ur Culton 2 Bacteria identified Cx Nom (U) ORGANISM ID: 1 10,000 -<50,000 CFU/ml Proteus species Insignificant colony count. No further workup. ORGANISM ID: 2 <10,000 CFU/ml Normal urogenital chris Normal [facility] Comment on above: Performed By: #### 6 30-4 ####[facility] LABORATORYCLIA [id number] [address] Bacteria Wnd Culton 07-09-19 22 Bacteria identified Cx Nom (Wound) ORGANISM ID: 1 Coagulase negative staphylococcus Growth in Enrichment Broth Only No susceptibility testing done. Call lab within 72 hours to initiate work-up if clinically indicated. GRAM STAIN: Account credited. Not performed on this specimen type. [facility] Comment on above: Performed By: #### 6 462-6 ####[facility] LABORATORYCLIA [id number] [address] Bacteria identified Cx Nom (Wound) ORGANISM ID: 1 Rare Coagulase negative staphylococcus No susceptibility testing done. Call lab within 72 hours to initiate work-up if clinically indicated. GRAM STAIN: Account credited. Not performed on this specimen type. [facility] Comment on above: Performed By: #### 6 462-6 ####[facility] LABORATORYCLIA [id number] [place] [address] [place] Bacteria identified Cx Nom (Wound) CULTURE, INTRAOPERATIVE HARDWARE: No growth 14 days GRAM STAIN: Account credited. Not performed on this specimen type. Normal [facility] Comment on above: Performed By: #### 6 462-6 ####[facility] LABORATORYCLIA [id number] [place] [address] [place] Basic metabolic 2000 panelon 07-08-2021 Anion gap [Moles/Vol] 9 mmol/L Normal 9-18 [facility] Comment on above: Order Comment: Speci men Type: BLOOD SPECIMENOrdering Facility: [facility] Address: [address] [place] [address] Performed By: #### 2 4321-2 ####[facility] LABORATORYCLIA [id number] [place] [address] [place] Calcium [Mass/Vol] 8.5 mg/dL Normal 8.5-10.2 [facility] Comment on above: Order Comment: Speci men Type: BLOOD SPECIMENOrdering Facility: [facility] Address: [address] [place] [address] Performed By: #### 2 4321-2 ####[facility] LABORATORYCLIA [id number] [address] [place] Chloride [Moles/Vol] 98 mmol/L Normal 97-105 [facility] Comment on above: Order Comment: Speci men Type: BLOOD SPECIMENOrdering Facility: [facility] Address: [address] [place] [address] Performed By: #### 2 4321-2 ####[facility] LABORATORYCLIA [id number] [address] [place] CO2 [Moles/Vol] 31 mmol/L High 22-30 [facility] Comment on above: Order Comment: Speci men Type: BLOOD SPECIMENOrdering Facility: [facility] Address: [address] [place] [address] Performed By: #### 2 4321-2 ####[facility] LABORATORYCLIA [id number] [address] STATES OF [facility] Creatinine [Mass/Vol] 0.64 mg/dL Low 0.73-1.22 [facility] Comment on above: Order Comment: Shira francia Type: BLOOD SPECIMENOrdering Facility: [facility] Address: [address] [place] [address] Performed By: #### 2 4321-2 ####[facility] LABORATORYCLIA [id number] [address] ESTIMATED GLOMERULAR FILTRATION RATE 102 mL/min/1.73m??? Normal >=60 [facility] Comment on above: Order Comment: Shira feldman Type: BLOOD SPECIMENOrdering Facility: [facility] Address: [address] [place] [address] Result Comment: Luzmaria mated Glomerular Filtration Rate [...] GFR. Performed By: #### 2 4321-2 ####[facility] LABORATORYCLIA [id number] [address] [place] Glucose [Mass/Vol] 114 mg/dL High 74-99 [facility] Comment on above: Order Comment: Johncara feldman Type: BLOOD SPECIMENOrdering Facility: [facility] Address: [address] [place] [address] Result Comment: The [place] [employer] (ADA) provides guidance for cutoff [...] Standards of Medical Care in Diabetes 2016, [place] [employer]. Diabetes Care. 2016.39(Suppl 1). Performed By: #### 2 4321-2 ####[facility] LABORATORYCLIA [id number] [place] [address] [place] Potassium [Moles/Vol] 3.4 mmol/L Low 3.7-5.1 [facility] Comment on above: Order Comment: Speci men Type: BLOOD SPECIMENOrdering Facility: [facility] Address: [address] [place] [address] Performed By: #### 2 4321-2 ####[facility] LABORATORYCLIA [id number] [address] STATES [facility] Sodium [Moles/Vol] 138 mmol/L Normal 136-144 [facility] Comment on above: Order Comment: Speci men Type: BLOOD SPECIMENOrdering Facility: [facility] Address: [address] [place] [address] Performed By: #### 2 4321-2 ####[facility] LABORATORYCLIA [id number] [address] STATES [facility] Urea nitrogen [Mass/Vol] 14 mg/dL Normal 9-24 [facility] Comment on above: Order Comment: Speci men Type: BLOOD SPECIMENOrdering Facility: [facility] Address: [address] [address] Performed By: #### 2 4321-2 ####[facility] LABORATORYCLIA [id number] [place] [address] [place] CBC W Auto Differential pane l (Bld)on 07-08-2021 Basophils (Bld) [#/Vol] 0.05 10*3/uL Normal <0.11 [facility] Comment on above: Order Comment: Speci men Type: BLOOD SPECIMENOrdering Facility: [facility] Address: [address] [address] Performed By: #### 5 7021-8 ####[facility] LABORATORYCLIA [id number] [address] [place] Basophils/100 WBC (Bld) 0.4 % Normal [facility] Comment on above: Order Comment: Speci men Type: BLOOD SPECIMENOrdering Facility: [facility] Address: [address] [place] [address] Performed By: #### 5 7021-8 ####[facility] LABORATORYCLIA [id number] [address] [place] Differential cell count method Nom (Bld) Auto Normal [facility] Comment on above: Order Comment: Speci men Type: BLOOD SPECIMENOrdering Facility: [facility] Address: [address] [place] [address] Performed By: #### 5 7021-8 ####[facility] LABORATORYCLIA [id number] [address] [place] Eosinophils (Bld) [#/Vol] 0.68 10*3/uL High <0.46 [facility] Comment on above: Order Comment: Speci men Type: BLOOD SPECIMENOrdering Facility: [facility] Address: [address] [place] [address] Performed By: #### 5 7021-8 ####[facility] LABORATORYCLIA [id number] [address] Eosinophils/100 WBC (Bld) 5.4 % Normal [facility] Comment on above: Order Comment: Speci men Type: BLOOD SPECIMENOrdering Facility: [facility] Address: [address] [place] [address] Performed By: #### 5 7021-8 ####[facility] LABORATORYCLIA [id number] [address] [place] Erythrocyte distribution width (RBC) [Ratio] 16.3 % High 11.5-15.0 [facility] Comment on above: Order Comment: Speci men Type: BLOOD SPECIMENOrdering Facility: [facility] Address: [address] [address] Performed By: #### 5 7021-8 ####[facility] LABORATORYCLIA [id number] [address] Hematocrit (Bld) [Volume fraction] 35.7 % Low 39.0-51.0 [facility] Comment on above: Order Comment: Speci men Type: BLOOD SPECIMENOrdering Facility: [facility] Address: [address] [place] [address] Performed By: #### 5 7021-8 ####[facility] LABORATORYCLIA [id number] [address] Hemoglobin (Bld) [Mass/Vol] 10.8 g/dL Low 13.0-17.0 [facility] Comment on above: Order Comment: Speci men Type: BLOOD SPECIMENOrdering Facility: [facility] Address: [address] [place] [address] Performed By: #### 5 7021-8 ####[facility] LABORATORYCLIA [id number] [address] IMMATURE GRAN % 0.4 % Normal [facility] Comment on above: Order Comment: Speci men Type: BLOOD SPECIMENOrdering Facility: [facility] Address: [address] [place] [address] Performed By: #### 5 7021-8 ####[facility] LABORATORYCLIA [id number] [address] IMMATURE GRAN ABS 0.05 k/uL Normal <0.10 [facility] Comment on above: Order Comment: Speci men Type: BLOOD SPECIMENOrdering Facility: [facility] Address: [address] [place] [address] Performed By: #### 5 7021-8 ####[facility] LABORATORYCLIA [id number] [address] OF [facility] Lymphocytes (Bld) [#/Vol] 1.85 10*3/uL Normal 1.00-4.00 [facility] Comment on above: Order Comment: Speci men Type: BLOOD SPECIMENOrdering Facility: [facility] Address: [address] [place] [address] Performed By: #### 5 7021-8 ####[facility] LABORATORYCLIA [id number] [address] Lymphocytes/100 WBC (Bld) 14.7 % Normal [facility] Comment on above: Order Comment: Speci men Type: BLOOD SPECIMENOrdering Facility: [facility] Address: [address] [place] [address] Performed By: #### 5 7021-8 ####[facility] LABORATORYCLIA [id number] [address] MCH (RBC) [Entitic mass] 27.1 pg Normal 26.0-34.0 [facility] Comment on above: Order Comment: Speci men Type: BLOOD SPECIMENOrdering Facility: [facility] Address: [address] [place] [address] Performed By: #### 5 7021-8 ####[facility] LABORATORYCLIA [id number] [address] MCHC (RBC) [Mass/Vol] 30.3 g/dL Low 30.5-36.0 [facility] Comment on above: Order Comment: Speci men Type: BLOOD SPECIMENOrdering Facility: [facility] Address: [address] [place] [address] Performed By: #### 5 7021-8 ####[facility] LABORATORYCLIA [id number] [address] MCV (RBC) [Entitic vol] 89.7 fL Normal 80.0-100.0 [facility] Comment on above: Order Comment: Speci men Type: BLOOD SPECIMENOrdering Facility: [facility] Address: [address] [place] [address] Performed By: #### 5 7021-8 ####[facility] LABORATORYCLIA [id number] [address] [place] Monocytes (Bld) [#/Vol] 0.87 10*3/uL High <0.87 [facility] Comment on above: Order Comment: Speci men Type: BLOOD SPECIMENOrdering Facility: [facility] Address: [address] [place] [address] Performed By: #### 5 7021-8 ####[facility] LABORATORYCLIA [id number] [place] [address] [place] Monocytes/100 WBC (Bld) 6.9 % Normal [facility] Comment on above: Order Comment: Speci men Type: BLOOD SPECIMENOrdering Facility: [facility] Address: [address] [place] [address] Performed By: #### 5 7021-8 ####[facility] LABORATORYCLIA [id number] [address] [place] Neutrophils (Bld) [#/Vol] 9.05 10*3/uL High 1.45-7.50 [facility] Comment on above: Order Comment: Speci men Type: BLOOD SPECIMENOrdering Facility: [facility] Address: [address] [place] [address] Performed By: #### 5 7021-8 ####[facility] LABORATORYCLIA [id number] [address] [place] Neutrophils/100 WBC (Bld) 72.2 % Normal [facility] Comment on above: Order Comment: Speci men Type: BLOOD SPECIMENOrdering Facility: [facility] Address: [address] [place] [address] Performed By: #### 5 7021-8 ####[facility] LABORATORYCLIA [id number] [place] [address] [place] Nucleated RBC (Bld) [#/Vol] 10*3/uL Normal <0.01 [facility] Comment on above: Order Comment: Speci men Type: BLOOD SPECIMENOrdering Facility: [facility] Address: [address] [place] [address] Performed By: #### 5 7021-8 ####[facility] LABORATORYCLIA [id number] [address] [place] Nucleated RBC/100 WBC (Bld) [Ratio] 0.0 /[address] [facility] Comment on above: Order Comment: Speci men Type: BLOOD SPECIMENOrdering Facility: [facility] Address: [address] [place] [address] Performed By: #### 5 7021-8 ####[facility] LABORATORYCLIA [id number] [address] [place] Platelet mean volume (Bld) [Entitic vol] 9.9 fL Normal 9.0-12.7 [facility] Comment on above: Order Comment: Speci men Type: BLOOD SPECIMENOrdering Facility: [facility] Address: [address] [place] [address] Performed By: #### 5 7021-8 ####[facility] LABORATORYCLIA [id number] [address] [place] Platelets (Bld) [#/Vol] 335 10*3/uL Normal 150-400 [facility] Comment on above: Order Comment: Speci men Type: BLOOD SPECIMENOrdering Facility: [facility] Address: [address] [place] [address] Performed By: #### 5 7021-8 ####[facility] LABORATORYCLIA [id number] [address] [place] RBC (Bld) [#/Vol] 3.98 10*6/uL Low 4.20-6.00 [facility] Comment on above: Order Comment: Speci men Type: BLOOD SPECIMENOrdering Facility: [facility] Address: [address] [place] [address] Performed By: #### 5 7021-8 ####[facility] LABORATORYCLIA [id number] [address] [place] WBC (Bld) [#/Vol] 12.55 10*3/uL High 3.70-11.00 [facility] Comment on above: Order Comment: Speci men Type: BLOOD SPECIMENOrdering Facility: [facility] Address: [address] [place] [address] Performed By: #### 5 7021-8 ####[facility] LABORATORYCLIA [id number] [address] [place] CK CREATINE KINASEon 022 CK [Catalytic activity/Vol] 72 U/L Normal 51-298 [facility] Comment on above: Order Comment: Speci men Type: BLOOD SPECIMENOrdering Facility: [facility] Address: [address] [place] [address] Performed By: #### C K, 85305-6 ####[facility] LABORATORYCLIA [id number] [address] [place] CONSULT PROGon 07-08-[address] [facility] CONSULT PROG Normal [facility] CSF MANUAL DIFFon 07-08-2021 DIF TTL, CSF [address] [facility] Comment on above: Order Comment: Speci men Type: CEREBROSPINAL FLUIDOrdering Facility: [facility] Address: [address] [place] [address] Performed By: #### 3 4563-7, [id number] ####[facility] LABORATORYCLIA [id number] [place] [address] [place] LYMPH%, CSF 33 % Low 50-90 [facility] Comment on above: Order Comment: Speci men Type: CEREBROSPINAL FLUIDOrdering Facility: [facility] Address: [address] [place] [address] Performed By: #### 3 4563-7, [id number] ####[facility] LABORATORYCLIA [id number] [place] [address] [place] MONO%, CSF 67 % High 10-50 [facility] Comment on above: Order Comment: Speci men Type: CEREBROSPINAL FLUIDOrdering Facility: [facility] Address: [address] [place] [address] Performed By: #### 3 4563-7, [id number] ####[facility] LABORATORYCLIA [id number] [address] [place] CT ABD/PEL W IVCONon 022 CT ABD/PEL W IVCON Normal [facility] CT BRAIN WO IVCONon 07-09-[address] BRAIN WO IVCON Normal [facility] CT BRAIN WO IVCON Normal [facility] CT CHEST W IVCON PEon 2021 CT CHEST W IVCON PE Normal [facility] Cell count panel (CSF)on Clarity (CSF) Clear Normal Clear [facility] Comment on above: Order Comment: Speci men Type: CEREBROSPINAL FLUIDOrdering Facility: [facility] Address: [address] [place] [address] Performed By: #### 3 4563-7, [id number] ####[facility] LABORATORYCLIA [id number] [address] [place] Clarity (Unsp spec) Clear Normal Clear [facility] Comment on above: Order Comment: Speci men Type: CEREBROSPINAL FLUIDOrdering Facility: [facility] Address: [address] [place] [address] Performed By: #### 3 4563-7, [id number] ####[facility] LABORATORYCLIA [id number] [address] [place] Color (CSF) Colorless Normal Colorless [facility] Comment on above: Order Comment: Speci men Type: CEREBROSPINAL FLUIDOrdering Facility: [facility] Address: [address] [address] Performed By: #### 3 4563-7, [id number] ####[facility] LABORATORYCLIA [id number] [address] [place] Color (Spun CSF) Colorless Normal Colorless [facility] Comment on above: Order Comment: Speci men Type: CEREBROSPINAL FLUIDOrdering Facility: [facility] Address: [facility] [address] Performed By: #### 3 4563-7, [id number] ####[facility] LABORATORYCLIA [id number] [address] CSF TUBE NUMBER [employer] Normal [facility] Comment on above: Order Comment: Speci men Type: CEREBROSPINAL FLUIDOrdering Facility: [facility] Address: [address] [place] [address] Performed By: #### 3 4563-7, [id number] ####[facility] LABORATORYCLIA [id number] [address] RBC Manual cnt (CSF) [#/Vol] 94 cells/uL High 0-5 [facility] Comment on above: Order Comment: Speci men Type: CEREBROSPINAL FLUIDOrdering Facility: [facility] Address: [address] [place] [address] Performed By: #### 3 4563-7, [id number] ####[facility] LABORATORYCLIA [id number] [address] WBC Manual cnt (CSF) [#/Vol] 1 cells/uL Normal 0-5 [facility] Comment on above: Order Comment: Speci men Type: CEREBROSPINAL FLUIDOrdering Facility: [facility] Address: [address] [place] [address] Performed By: #### 3 4563-7, [id number] ####[facility] LABORATORYCLIA [id number] [address] Comprehensive metabolic 2000 panelon 07-08-2021 Albumin [Mass/Vol] 3.6 g/dL Low 3.9-4.9 [facility] Comment on above: Order Comment: Speci men Type: BLOOD SPECIMENOrdering Facility: [facility] Address: [address] [place] [address] Performed By: #### C K, 11919-6 ####[facility] LABORATORYCLIA [id number] [address] [place] ALP [Catalytic activity/Vol] 125 U/L High 38-113 [facility] Comment on above: Order Comment: Speci men Type: BLOOD SPECIMENOrdering Facility: [facility] Address: [address] [address] Performed By: #### Eileen Valdivia, 54617-9 ####[facility]ORATORYCLIA [id number] [address] [place] ALT With P-5'-P [Catalytic activity/Vol] 24 U/L Normal 10-54 [facility] Comment on above: Order Comment: Speci men Type: BLOOD SPECIMENOrdering Facility: [facility] Address: [address] [place] [address] Performed By: #### Eileen Valdivia, 45294-4 ####[facility] LABORATORYCLIA [id number] [address] OF [facility] Anion gap [Moles/Vol] 16 mmol/L Normal 9-18 [facility] Comment on above: Order Comment: Speci men Type: BLOOD SPECIMENOrdering Facility: [facility] Address: [address] [place] [address] Performed By: #### Eileen Valdivia, 06229-2 ####[facility] LABORATORYCLIA [id number] [address] AST With P-5'-P [Catalytic activity/Vol] 21 U/L Normal 14-40 [facility] Comment on above: Order Comment: Speci men Type: BLOOD SPECIMENOrdering Facility: [facility] Address: [address] [place] [address] Performed By: #### Eileen Valdivia, 90527-0 ####[facility]ORATORYCLIA [id number] [address] [place] Bilirubin [Mass/Vol] 0.3 mg/dL Normal 0.2-1.3 [facility] Comment on above: Order Comment: Speci men Type: BLOOD SPECIMENOrdering Facility: [facility] Address: [address] [place] [address] Performed By: #### Eileen Valdivia, 16506-2 ####[facility]ORATORYCLIA [id number] [place] [address] [place] Calcium [Mass/Vol] 8.9 mg/dL Normal 8.5-10.2 [facility] Comment on above: Order Comment: Speci men Type: BLOOD SPECIMENOrdering Facility: [facility] Address: [address] [place] [address] Performed By: #### Eileen Valdivia, 58182-4 ####[facility] LABORATORYCLIA [id number] [place] [address] [place] Chloride [Moles/Vol] 96 mmol/L Low 97-105 [facility] Comment on above: Order Comment: Speci men Type: BLOOD SPECIMENOrdering Facility: [facility] Address: [address] [place] [address] Performed By: #### Eileen Valdivia, 00660-4 ####[facility] LABORATORYCLIA [id number] [address] [place] CO2 [Moles/Vol] 27 mmol/L Normal 22-30 [facility] Comment on above: Order Comment: Speci men Type: BLOOD SPECIMENOrdering Facility: [facility] Address: [address] [place] [address] Performed By: #### Eileen Valdivia, 09589-9 ####[facility] LABORATORYCLIA [id number] [place] [address] [place] Creatinine [Mass/Vol] 0.68 mg/dL Low 0.73-1.22 [facility] Comment on above: Order Comment: Speci men Type: BLOOD SPECIMENOrdering Facility: [facility] Address: [address] [place] [address] Performed By: #### Eileen Valdivia, 70243-2 ####[facility] LABORATORYCLIA [id number] [address] ESTIMATED GLOMERULAR FILTRATION RATE 101 mL/min/1.73m??? Normal >=60 [facility] Comment on above: Order Comment: Speci men Type: BLOOD SPECIMENOrdering Facility: [facility] Address: [address] [place] [address] Result Comment: Luzmaria mated Glomerular Filtration Rate [...] actual GFR. Performed By: #### Eileen Valdivia, 13876-6 ####[facility]ORATORYCLIA [id number] [place] [address] [place] Glucose [Mass/Vol] 130 mg/dL High 74-99 [facility] Comment on above: Order Comment: Shira men Type: BLOOD SPECIMENOrdering Facility: [facility] Address: [address] [address] Result Comment: The [place] Diabetes Association (ADA) provides guidance for cutoff [...] Standards of Medical Care in Diabetes 2016, [place] [employer]. Diabetes Care. 2016.39(Suppl 1). Performed By: #### Eileen Valdivia, 39178-9 ####[facility]ATORYCLIA [id number] [place] [address] [place] Potassium [Moles/Vol] 3.9 mmol/L Normal 3.7-5.1 [facility] Comment on above: Order Comment: Shira feldman Type: BLOOD SPECIMENOrdering Facility: [facility] Address: [address] Performed By: #### Eileen Valdivia, 54001-1 ####[facility]ATORYCLIA [id number] [place] [address] Protein [Mass/Vol] 7.0 g/dL Normal 6.3-8.0 [facility] Comment on above: Order Comment: Speci men Type: BLOOD SPECIMENOrdering Facility: [facility] Address: [address] [place] [address] Performed By: #### C Skip, 39713-3 ####[facility]ATORYCLIA [id number] [address] STATES [facility] Sodium [Moles/Vol] 139 mmol/L Normal 136-144 [facility] Comment on above: Order Comment: Speci men Type: BLOOD SPECIMENOrdering Facility: [facility] Address: [address] [place] [address] Performed By: #### Eileen Valdivia, 21688-8 ####[facility]ATORYCLIA [id number] [address] STATES [facility] Urea nitrogen [Mass/Vol] 16 mg/dL Normal 9-24 [facility] Comment on above: Order Comment: Speci men Type: BLOOD SPECIMENOrdering Facility: [facility] Address: [address] [place] [address] Performed By: #### Eileen Valdivia, 60724-6 ####[facility]ATORYCLIA [id number] [address] OF [facility] ED NOTEon 07-08-2021 ED NOTE HNO ID: [id number] Author: Lenora James RN Service: Emergency Medicine Author Type: Registered Nurse Type: ED Notes Filed: 07/08/2021 5:03 PM Note Text: Pt to OR with surgical team Normal [facility] ED NOTE HNO ID: [id number] Author: Lenora James RN Service: Emergency Medicine Author Type: Registered Nurse Type: ED Notes Filed: 07/08/2021 4:50 PM Note Text: OR team to get pt Normal [facility] ED NOTE HNO ID: [id number] Author: Lenora James RN Service: Emergency Medicine Author Type: Registered Nurse Type: ED Notes Filed: 07/08/2021 4:50 PM Note Text: Normal [facility] ED NOTE HNO ID: [id number] Author: Lenora James RN Service: Emergency Medicine Author Type: Registered Nurse Type: ED Notes Filed: 07/08/2021 4:50 PM Note Text: Spoke with presurg; pt to go to OR now [facility] ED NOTE HNO ID: [id number] Author: Lenora James RN Service: Emergency Medicine Author Type: Registered Nurse Type: ED Notes Filed: 07/08/2021 4:12 PM Note Text: Neurosurgery at beside [facility] ED NOTE HNO ID: [id number] Author: Lenora James RN Service: Emergency Medicine Author Type: Registered Nurse Type: ED Notes Filed: 07/08/2021 2:35 PM Note Text: respiratory aware of pt breathing treatments [facility] ED NOTE HNO ID: [id number] Author: Lisa Woo RN Service: ? Author Type: Registered Nurse Type: ED Notes Filed: 07/08/2021 2:20 PM Note Text: Xray notified pt is ready. [facility] ED NOTE HNO ID: [id number] Author: Lenora James RN Service: Emergency Medicine Author Type: Registered Nurse Type: ED Notes Filed: 07/08/2021 12:14 PM Note Text: CT notified regarding imaging orders placed [facility] ED NOTE Normal [facility] ED PROV NOTEon 07-08-[address] [facility] Glucose CSF-mCncon 2 Glucose (CSF) [Mass/Vol] 88 mg/dL High 40-70 [facility] Comment on above: Order Comment: Speci men Type: CEREBROSPINAL FLUIDOrdering Facility: [facility] Address: [address] [place] [place] [phone] Result Comment: Lumb ar CSF glucose values of healthy patients are approximately 60% of the plasma values and must always be compared with a concurrently measured plasma value for adequate clinical interpretation.References: 1. Glucose HK (GLUC3) [package insert V 12.0 Lebanese]. [employer], [place], [place]. September 2015. 2. Michelle Moore, Michelle Manjarrez (2015). Chapter 7: Glucose and Lactate. Marianela Alcocer al.(eds.), Cerebrospinal Fluid in Clinical Neurology. Bee: [employer]. Performed By: #### 2 880-3, 2342-4 ####[facility]ATORYCLIA [id number] [address] HIGH SENSITIVITY TROPONIN To n 07-08-2021 HIGH SENSITIVITY TAMIKO 27 ng/L High <12 [facility] Comment on above: Order Comment: Speci men Type: BLOOD SPECIMENOrdering Facility: [facility] Address: [address] [place] [address] Result Comment: When assessing risk for acute [...] day MACE. Performed By: #### H STNT ####[facility]ORATORYIA [id number] [address] HIGH SENSITIVITY TAMIKO 36 ng/L High <12 [facility] Comment on above: Order Comment: Shira feldman Type: BLOOD SPECIMENOrdering Facility: [facility] Address: [address] [place] [address] Result Comment: When assessing risk for acute [...] day MACE. Performed By: #### H STNT ####[facility] LABORATORYIA [id number] [address] STATES OF [facility] HISTORY PHYSICALon HISTORY PHYSICAL Normal [facility] NURSING PROGon 07-08-[address] [facility] OPERATIVE NOon 07-08-[address] [facility] Prot CSF-mCncon 07-08-2021 Protein (CSF) [Mass/Vol] 33 mg/dL Normal 15-45 [facility] Comment on above: Order Comment: Speci men Type: CEREBROSPINAL FLUIDOrdering Facility: [facility] Address: [address] [place] [address] Performed By: #### 2 880-3, 2342-4 ####[facility]ATORYCLIA [id number] [address] [place] SARS-CoV-2 RNA Resp Ql MEGAN+p robeon 07-08-2021 SARS-CoV-2 (COVID-19) RNA MEGAN+probe Ql (Resp) COVID 19 RESULT: SARS-CoV-2 (Agent of COVID-19) Not Detected by RT-PCR or equivalent method. This test has been authorized by FDA under an Emergency Use Authorization (EUA). Normal [facility] Comment on above: Performed By: #### 9 4500-6 ####[facility]ATORYCLIA [id number] [address] [place] STAPH AUREUS PCRon 2 S. aureus and MRSA panel MEGAN+probe (Nose) Normal Negative [facility] Comment on above: Order Comment: Speci men Type: SWAB OF INTERNAL NOSEOrdering Facility: [facility] Address: [address] [place] [address] Result Comment: Nega tive for Staphylococcus aureus by PCR.Negative for MRSA by PCR Performed By: #### S APCR ####[facility]ATORYCLIA [id number] [place] [address] [place] Urinalysis complete panel (U )on 07-08-2021 Bacteria LM.HPF (Urine sed) [#/Area] Few Abnormal None Seen [facility] Comment on above: Order Comment: Speci men Type: URINE SPECIMENOrdering Facility: [facility] Address: [address] [place] [address] Performed By: #### 2 4356-8 ####[facility]ATORYCLIA [id number] [place] [address] Bilirubin Ql (U) Negative Normal Negative [facility] Comment on above: Order Comment: Speci men Type: URINE SPECIMENOrdering Facility: [facility] Address: [address] [place] [address] Performed By: #### 2 4356-8 ####[facility]ATORYCLIA [id number] [address] Clarity (Unsp spec) Turbid Abnormal Clear [facility] Comment on above: Order Comment: Speci men Type: URINE SPECIMENOrdering Facility: [facility] Address: [address] [place] [address] Performed By: #### 2 4356-8 ####[facility]ATORYCLIA [id number] [address] Color (U) Light Yellow Normal yellow [facility] Comment on above: Order Comment: Speci men Type: URINE SPECIMENOrdering Facility: [facility] Address: [address] [place] [address] Performed By: #### 2 4356-8 ####[facility]ATORYCLIA [id number] [address] Glucose Test strip (U) [Mass/Vol] Negative Normal Negative [facility] Comment on above: Order Comment: Speci men Type: URINE SPECIMENOrdering Facility: [facility] Address: [address] [place] [address] Performed By: #### 2 4356-8 ####[facility]ATORYCLIA [id number] [address] STATES [facility] Hemoglobin Ql (U) Negative Normal Negative [facility] Comment on above: Order Comment: Speci men Type: URINE SPECIMENOrdering Facility: [facility] Address: [address] [place] [address] Performed By: #### 2 4356-8 ####[facility]ATORYCLIA [id number] [address] [place] Hyaline casts (Urine sed) [#/Area] 1-3 /LPF Abnormal 0 /LPF [facility] Comment on above: Order Comment: Speci men Type: URINE SPECIMENOrdering Facility: [facility] Address: [address] [place] [address] Performed By: #### 2 4356-8 ####[facility]ATORYCLIA [id number] [address] STATES [facility] Ketones Ql (U) Negative Normal Negative [facility] Comment on above: Order Comment: Speci men Type: URINE SPECIMENOrdering Facility: [facility] Address: [address] [place] [address] Performed By: #### 2 4356-8 ####[facility]ATORYCLIA [id number] [address] Leukocyte esterase Test strip Ql (U) Negative Normal Negative [facility] Comment on above: Order Comment: Speci men Type: URINE SPECIMENOrdering Facility: [facility] Address: [address] [place] [address] Performed By: #### 2 4356-8 ####[facility]ATORYCLIA [id number] [address] STATES [facility] Nitrite Ql (U) Negative Normal Negative [facility] Comment on above: Order Comment: Speci men Type: URINE SPECIMENOrdering Facility: [facility] Address: [address] [place] [address] Performed By: #### 2 4356-8 ####[facility]ATORYCLIA [id number] [address] [place] pH (U) 5.0 [pH] Normal 5.0-8.0 [facility] Comment on above: Order Comment: Speci men Type: URINE SPECIMENOrdering Facility: [facility] Address: [address] [place] [address] Performed By: #### 2 4356-8 ####[facility]ORATORYCLIA [id number] [address] [place] Protein (U) [Mass/Vol] Negative Normal Negative [facility] Comment on above: Order Comment: Speci men Type: URINE SPECIMENOrdering Facility: [facility] Address: [address] [place] [address] Performed By: #### 2 4356-8 ####[facility]ATORYCLIA [id number] [address] STATES [facility] RBC LM.HPF (Urine sed) [#/Area] 11-25 /HPF Abnormal 0-3 /HPF [facility] Comment on above: Order Comment: Speci men Type: URINE SPECIMENOrdering Facility: [facility] Address: [address] [place] [address] Performed By: #### 2 4356-8 ####[facility]CL[facility] [id number] [address] Specific gravity (U) [Rel density] 1.018 Normal 1.005-1.030 [facility] Comment on above: Order Comment: Speci men Type: URINE SPECIMENOrdering Facility: [facility] Address: [address] [place] [address] Performed By: #### 2 4356-8 ####[facility]ATORYCLIA [id number] [address] Urobilinogen Ql (U) Normal Normal Negative [facility] Comment on above: Order Comment: Speci men Type: URINE SPECIMENOrdering Facility: [facility] Address: [address] [place] [address] Performed By: #### 2 4356-8 ####[facility]ATORYCLIA [id number] [address] WBC LM.HPF (Urine sed) [#/Area] /[HPF] Abnormal 0-5 /HPF [facility] Comment on above: Order Comment: Speci men Type: URINE SPECIMENOrdering Facility: [facility] Address: [address] [place] [address] Performed By: #### 2 4356-8 ####[facility]ATORYCLIA [id number] [place] [address] [facility] Vancomycin random [Mass/Vol] on 07-08-2021 Vancomycin [Mass/Vol] 31.0 ug/mL High 10.0-20.0 [facility] Comment on above: Order Comment: Speci men Type: BLOOD SPECIMENOrdering Facility: [facility] Address: [facility] [address] [place] [phone] Result Comment: Refe rence ranges and high/low indicator flags are provided as general guidelines only. The treating physician must determine appropriate target levels/dosing based on the specific clinical situation. Performed By: #### 4 091-5 ####[facility]ATORYCLIA [id number] [address] XR ABD 2V SUPINE W UPR/DECUB /CTLon 07-08-2021 XR ABD 2V SUPINE W UPR/DECUB/CTL Normal [facility] XR CHEST 1V FRONTALon 2021 XR CHEST 1V FRONTAL Normal [facility] XR CHEST 1V FRONTAL Normal [facility] XR NECK SOFT TISSUE 2V AP/LA Ton 07-08-2021 XR NECK SOFT TISSUE 2V AP/LAT Normal [facility] XR SKULL 2V AP/LATon 022 XR SKULL 2V AP/LAT Normal [facility] HISTORY PHYSICALon HISTORY PHYSICAL HNO ID: [id number] Author: Amy Beltran MD Service: ? Author Type: Physician Type: HANDP Filed: 06/30/2021 6:42 PM Note Text: Connected Care Unit History and Physical Facility: [place] Level of Care: Skilled Admission Date: June [...] regarding the above plan. Total time spent [id number] and/or counseling and coordinating care on the skilled care unit for patient was approximately 45 minutes SUBJECTIVE (HISTORY) Chief Complaint: Confusion, infection, blood clot. Andrew Sifuentes is being seen today for [facility]ci facility (SNF) admission AND management of weakness, tube feed, infected retroperitoneal infection and seizure. HPI: This is a 71 year old male who presents from [facility] with primary admitting diagnosis of Seizure, enteral [...] CT brain concerning for hydrocephalus. 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 Normal [facility] Basic metabolic 2000 panelon 06-28-2021 Anion gap [Moles/Vol] 7 mmol/L Low 9-18 [facility] Comment on above: Order Comment: Speci men Type: BLOOD SPECIMENOrdering Facility: [facility] Address: [address] Performed By: #### 2 4320-2, ####[facility] LABORATORYCLIA [id number] [place] [address] [place] Calcium [Mass/Vol] 8.8 mg/dL Normal 8.5-10.2 [facility] Comment on above: Order Comment: Speci men Type: BLOOD SPECIMENOrdering Facility: [facility] Address: [address] [place] [address] Performed By: #### 2 4320-06, ####[facility] LABORATORYCLIA [id number] [place] [address] [place] Chloride [Moles/Vol] 103 mmol/L Normal 97-105 [facility] Comment on above: Order Comment: Speci men Type: BLOOD SPECIMENOrdering Facility: [facility] Address: [address] [place] [address] Performed By: #### 2 4320-06, ####[facility]ATORYCLIA [id number] [place] [address] [place] CO2 [Moles/Vol] 28 mmol/L Normal 22-30 [facility] Comment on above: Order Comment: Speci men Type: BLOOD SPECIMENOrdering Facility: [facility] Address: [address] [place] [address] Performed By: #### 2 4320-06, ####[facility]ATORYCLIA [id number] [place] [address] [place] Creatinine [Mass/Vol] 0.57 mg/dL Low 0.73-1.22 [facility] Comment on above: Order Comment: Speci men Type: BLOOD SPECIMENOrdering Facility: [facility] Address: [address] [place] [address] Performed By: #### 2 2, ####[facility]ATORYCLIA [id number] [place] [address] [place] GFR/1.73 sq M.predicted MDRD (S/P/Bld) [Vol rate/Area] mL/min/{1.73_m2} Normal [facility] Comment on above: Order Comment: Shira feldman Type: BLOOD SPECIMENOrdering Facility: [facility] Address: [address] [phone] Result Comment: >60e GFR (Estimated GFR) Units [...] actual GFR. Performed By: #### 2 4321-2, 88624-8 ####[facility]ATORYCLIA [id number] [address] OF [facility] Glucose [Mass/Vol] 120 mg/dL High 74-99 [facility] Comment on above: Order Comment: Shira feldman Type: BLOOD SPECIMENOrdering Facility: [facility] Address: [address] [place], [place] [phone] Result Comment: The [place] Diabetes Association (ADA) provides guidance for cutoff [...] Standards of Medical Care in Diabetes 2016, [place] [employer]. Diabetes Care. 2016.39(Suppl 1). Performed By: #### 2 4321-2, 37721-3 ####[facility]ATORYCLIA [id number] [address] [place] Potassium [Moles/Vol] 3.8 mmol/L Normal 3.7-5.1 [facility] Comment on above: Order Comment: Speci men Type: BLOOD SPECIMENOrdering Facility: [facility] Address: [address] [place] [address] Performed By: #### 2 4321-2, ####[facility]ORYCLIA [id number] [address] [place] Sodium [Moles/Vol] 138 mmol/L Normal 136-144 [facility] Comment on above: Order Comment: Speci men Type: BLOOD SPECIMENOrdering Facility: [facility] Address: [address] [place] [address] Performed By: #### 2 4321-2, ####[facility]ORYCLIA [id number] [address] STATES OF [facility] Urea nitrogen [Mass/Vol] 24 mg/dL Normal 9-24 [facility] Comment on above: Order Comment: Speci men Type: BLOOD SPECIMENOrdering Facility: [facility] Address: [address] [place] [address] Performed By: #### 2 4321-2, ####[facility]ATORYCLIA [id number] [address] [place] CASE MANAGEMon 06-28-[address] [facility] CBC panel Auto (Bld)on 06-28 Erythrocyte distribution width (RBC) [Ratio] 15.6 % High 11.5-15.0 [facility] Comment on above: Order Comment: Speci men Type: BLOOD SPECIMENOrdering Facility: [facility] Address: [address] [place] [address] Performed By: #### 5 8410-2 ####[facility]ATORYCLIA [id number] [address] [place] Hematocrit (Bld) [Volume fraction] 30.5 % Low 39.0-51.0 [facility] Comment on above: Order Comment: Speci men Type: BLOOD SPECIMENOrdering Facility: [facility] Address: [address] [place] [address] Performed By: #### 5 8410-2 ####[facility]ORYCLIA [id number] [address] STATES OF [facility] Hemoglobin (Bld) [Mass/Vol] 9.4 g/dL Low 13.0-17.0 [facility] Comment on above: Order Comment: Speci men Type: BLOOD SPECIMENOrdering Facility: [facility] Address: [address] [place] [address] Performed By: #### 5 8410-2 ####[facility]ORYCLIA [id number] [address] STATES OF [facility] MCH (RBC) [Entitic mass] 27.8 pg Normal 26.0-34.0 [facility] Comment on above: Order Comment: Speci men Type: BLOOD SPECIMENOrdering Facility: [facility] Address: [address] [place] [address] Performed By: #### 5 8410-2 ####[facility]ORYCLIA [id number] [address] MCHC (RBC) [Mass/Vol] 30.8 g/dL Normal 30.5-36.0 [facility] Comment on above: Order Comment: Speci men Type: BLOOD SPECIMENOrdering Facility: [facility] Address: [address] [place] [address] Performed By: #### 5 8410-2 ####[facility]ORYCLIA [id number] [address] [place] MCV (RBC) [Entitic vol] 90.2 fL Normal 80.0-100.0 [facility] Comment on above: Order Comment: Speci men Type: BLOOD SPECIMENOrdering Facility: [facility] Address: [address] [place] [address] Performed By: #### 5 8410-2 ####[facility]ORYCLIA [id number] [address] [place] Nucleated RBC (Bld) [#/Vol] 10*3/uL Normal <0.01 [facility] Comment on above: Order Comment: Speci men Type: BLOOD SPECIMENOrdering Facility: [facility] Address: [address] [place] [address] Performed By: #### 5 8410-2 ####[facility]ATORYCLIA [id number] [address] [place] Platelet mean volume (Bld) [Entitic vol] 9.9 fL Normal 9.0-12.7 [facility] Comment on above: Order Comment: Speci men Type: BLOOD SPECIMENOrdering Facility: [facility] Address: [address] [place] [address] Performed By: #### 5 8410-2 ####[facility]ATORYCLIA [id number] [address] [place] Platelets (Bld) [#/Vol] 333 10*3/uL Normal 150-400 [facility] Comment on above: Order Comment: Speci men Type: BLOOD SPECIMENOrdering Facility: [facility] Address: [address] [place] [address] Performed By: #### 5 8410-2 ####[facility]ORYCLIA [id number] [address] [place] RBC (Bld) [#/Vol] 3.38 10*6/uL Low 4.20-6.00 [facility] Comment on above: Order Comment: Speci men Type: BLOOD SPECIMENOrdering Facility: [facility] Address: [address] [place] [address] Performed By: #### 5 8410-2 ####[facility]ATORYCLIA [id number] [address] [place] WBC (Bld) [#/Vol] 9.71 10*3/uL Normal 3.70-11.00 [facility] Comment on above: Order Comment: Speci men Type: BLOOD SPECIMENOrdering Facility: [facility] Address: [address] [place] [address] Performed By: #### 5 8410-2 ####[facility]ORYCLIA [id number] [address] CNDSon 06-28-[address] [facility] CONSULT PROGon 06-28-[address] [facility] Magnesium SerPl-mCncon 06-28 Magnesium [Mass/Vol] 2.2 mg/dL Normal 1.7-2.3 [facility] Comment on above: Order Comment: Speci men Type: BLOOD SPECIMENOrdering Facility: [facility] Address: [address] [place] [address] Performed By: #### 2 4321-2, ####[facility]ORYCLIA [id number] [address] Vancomycin random [Mass/Vol] on 06-28-2021 Vancomycin [Mass/Vol] 23.0 ug/mL High 10.0-20.0 [facility] Comment on above: Order Comment: Speci men Type: BLOOD SPECIMENOrdering Facility: [facility] Address: [address] [place] [address] Result Comment: Refe rence ranges and high/low indicator flags are provided as general guidelines only. The treating physician must determine appropriate target levels/dosing based on the specific clinical situation. Performed By: #### 4 091-5 ####[facility]ORYCLIA [id number] [address] [place] ALLIED HEALTHon 06-27-[address] [facility] Basic metabolic 2000 panelon 06-27-2021 Anion gap [Moles/Vol] 10 mmol/L Normal 9-18 [facility] Comment on above: Order Comment: Speci men Type: BLOOD SPECIMENOrdering Facility: [facility] Address: [address] [place] [address] Performed By: #### 2 4320-2, ####[facility]ATORYCLIA [id number] [place] [address] [place] Calcium [Mass/Vol] 8.8 mg/dL Normal 8.5-10.2 [facility] Comment on above: Order Comment: Speci men Type: BLOOD SPECIMENOrdering Facility: [facility] Address: [address] [place] [address] Performed By: #### 2 2, ####[facility]ORYCLIA [id number] [place] [address] [place] Chloride [Moles/Vol] 104 mmol/L Normal 97-105 [facility] Comment on above: Order Comment: Speci men Type: BLOOD SPECIMENOrdering Facility: [facility] Address: [address] [place] [address] Performed By: #### 2 4320-06, ####[facility]ORYCLIA [id number] [address] STATES [place] CO2 [Moles/Vol] 26 mmol/L Normal 22-30 [facility] Comment on above: Order Comment: Speci men Type: BLOOD SPECIMENOrdering Facility: [facility] Address: [address] [place] [address] Performed By: #### 2 4320-06, ####[facility]ORYCLIA [id number] [place] [address] [place] Creatinine [Mass/Vol] 0.57 mg/dL Low 0.73-1.22 [facility] Comment on above: Order Comment: Speci men Type: BLOOD SPECIMENOrdering Facility: [facility] Address: [address] [place] [address] Performed By: #### 2 2, ####[facility]ATORYCLIA [id number] [place] [address] [place] GFR/1.73 sq M.predicted MDRD (S/P/Bld) [Vol rate/Area] mL/min/{1.73_m2} Normal [facility] Comment on above: Order Comment: Shira feldman Type: BLOOD SPECIMENOrdering Facility: [facility] Address: [address] [phone] Result Comment: >60e GFR (Estimated GFR) Units [...] actual GFR. Performed By: #### 2 4321-2, 81413-5 ####[facility]ATORYCLIA [id number] [place] [address] [place] Glucose [Mass/Vol] 133 mg/dL High 74-99 [facility] Comment on above: Order Comment: Shira feldman Type: BLOOD SPECIMENOrdering Facility: [facility] Address: [address] [place] [address] Result Comment: The [place] Diabetes [employer] (ADA) provides guidance for cutoff [...] Standards of Medical Care in Diabetes 2016, [place] [employer]. Diabetes Care. 2016.39(Suppl 1). Performed By: #### 2 4321-2, 73919-1 ####[facility]ORYCLIA [id number] [place] [address] [place] Potassium [Moles/Vol] 4.2 mmol/L Normal 3.7-5.1 [facility] Comment on above: Order Comment: Speci men Type: BLOOD SPECIMENOrdering Facility: [facility] Address: [address] [place] [address] Performed By: #### 2 4321-2, ####[facility]ATORYCLIA [id number] [address] STATES [facility] Sodium [Moles/Vol] 140 mmol/L Normal 136-144 [facility] Comment on above: Order Comment: Speci men Type: BLOOD SPECIMENOrdering Facility: [facility] Address: [address] [place] [address] Performed By: #### 2 4321-2, ####[facility]ATORYCLIA [id number] [address] STATES OF [facility] Urea nitrogen [Mass/Vol] 24 mg/dL Normal 9-24 [facility] Comment on above: Order Comment: Speci men Type: BLOOD SPECIMENOrdering Facility: [facility] Address: [address] [place] [address] Performed By: #### 2 4321-2, ####[facility]ORYCLIA [id number] [address] CASE MANAGEMon 06-27-[address] [facility] CBC panel Auto (Bld)on 06-27 Erythrocyte distribution width (RBC) [Ratio] 15.8 % High 11.5-15.0 [facility] Comment on above: Order Comment: Speci men Type: BLOOD SPECIMENOrdering Facility: [facility] Address: [address] [place] [address] Performed By: #### 5 8410-2 ####[facility]ATORYCLIA [id number] [address] Hematocrit (Bld) [Volume fraction] 31.4 % Low 39.0-51.0 [facility] Comment on above: Order Comment: Speci men Type: BLOOD SPECIMENOrdering Facility: [facility] Address: [address] [place] [address] Performed By: #### 5 8410-2 ####[facility]ORYCLIA [id number] [address] Hemoglobin (Bld) [Mass/Vol] 9.3 g/dL Low 13.0-17.0 [facility] Comment on above: Order Comment: Speci men Type: BLOOD SPECIMENOrdering Facility: [facility] Address: [address] [place] [address] Performed By: #### 5 8410-2 ####[facility]ATORYCLIA [id number] [address] MCH (RBC) [Entitic mass] 27.0 pg Normal 26.0-34.0 [facility] Comment on above: Order Comment: Speci men Type: BLOOD SPECIMENOrdering Facility: [facility] Address: [address] [place] [address] Performed By: #### 5 8410-2 ####[facility]ORYCLIA [id number] [address] MCHC (RBC) [Mass/Vol] 29.6 g/dL Low 30.5-36.0 [facility] Comment on above: Order Comment: Speci men Type: BLOOD SPECIMENOrdering Facility: [facility] Address: [address] [place] [address] Performed By: #### 5 8410-2 ####[facility]ATORYCLIA [id number] [address] STATES [facility] MCV (RBC) [Entitic vol] 91.3 fL Normal 80.0-100.0 [facility] Comment on above: Order Comment: Speci men Type: BLOOD SPECIMENOrdering Facility: [facility] Address: [address] [place] [address] Performed By: #### 5 8410-2 ####[facility]ATORYCLIA [id number] [address] Nucleated RBC (Bld) [#/Vol] 10*3/uL Normal <0.01 [facility] Comment on above: Order Comment: Speci men Type: BLOOD SPECIMENOrdering Facility: [facility] Address: [address] [place] [address] Performed By: #### 5 8410-2 ####[facility]ATORYCLIA [id number] [place] [address] [place] Platelet mean volume (Bld) [Entitic vol] 10.3 fL Normal 9.0-12.7 [facility] Comment on above: Order Comment: Speci men Type: BLOOD SPECIMENOrdering Facility: [facility] Address: [address] [place] [address] Performed By: #### 5 8410-2 ####[facility]ATORYCLIA [id number] [address] [place] Platelets (Bld) [#/Vol] 359 10*3/uL Normal 150-400 [facility] Comment on above: Order Comment: Speci men Type: BLOOD SPECIMENOrdering Facility: [facility] Address: [address] [place] [address] Performed By: #### 5 8410-2 ####[facility]ATORYCLIA [id number] [place] [address] [place] RBC (Bld) [#/Vol] 3.44 10*6/uL Low 4.20-6.00 [facility] Comment on above: Order Comment: Speci men Type: BLOOD SPECIMENOrdering Facility: [facility] Address: [address] [place] [address] Performed By: #### 5 8410-2 ####[facility]ATORYCLIA [id number] [place] [address] [place] WBC (Bld) [#/Vol] 10.73 10*3/uL Normal 3.70-11.00 [facility] Comment on above: Order Comment: Speci men Type: BLOOD SPECIMENOrdering Facility: [facility] Address: [address] [place] [address] Performed By: #### 5 8410-2 ####[facility]ORYCLIA [id number] [place] [address] [place] Magnesium [facility]27 Magnesium [Mass/Vol] 2.2 mg/dL Normal 1.7-2.3 [facility] Comment on above: Order Comment: Speci men Type: BLOOD SPECIMENOrdering Facility: [facility] Address: [address] [place] [address] Performed By: #### 2 4321-2, 75755-3 ####[facility]ATORYCLIA [id number] [address] STATES [place] [facility]27 Natriuretic peptide.B prohormone N-Terminal [Mass/Vol] 184 pg/mL High <125 [facility] Comment on above: Order Comment: Speci men Type: BLOOD SPECIMENOrdering Facility: [facility] Address: [address] [place] [address] Performed By: #### 3 3762-6 ####[facility]ATORYCLIA [id number] [place] [address] [place] NUTRITIONon 06-27-[address] [facility] THERAPY NTon 06-27-[address] [facility] THERAPY NT Normal [facility] XR CHEST 1V FRONTALon 2021 XR CHEST 1V FRONTAL Normal [facility] Basic metabolic 2000 panelon 06-26-2021 Anion gap [Moles/Vol] 9 mmol/L Normal 9-18 [facility] Comment on above: Order Comment: Speci men Type: BLOOD SPECIMENOrdering Facility: [facility] Address: [address] [place] [address] Performed By: #### 1 9123-9, 96036-5 ####[facility]ORYCLIA [id number] [address] [place] Calcium [Mass/Vol] 8.7 mg/dL Normal 8.5-10.2 [facility] Comment on above: Order Comment: Speci men Type: BLOOD SPECIMENOrdering Facility: [facility] Address: [address] [place] [address] Performed By: #### 1 9123-9, 75231-1 ####[facility]ORYCLIA [id number] [place] [address] [place] Chloride [Moles/Vol] 105 mmol/L Normal 97-105 [facility] Comment on above: Order Comment: Speci men Type: BLOOD SPECIMENOrdering Facility: [facility] Address: [address] [place] [address] Performed By: #### 1 9123-9, 28654-6 ####[facility]ORYCLIA [id number] [place] [address] [place] CO2 [Moles/Vol] 26 mmol/L Normal 22-30 [facility] Comment on above: Order Comment: Speci men Type: BLOOD SPECIMENOrdering Facility: [facility] Address: [address] [place] [address] Performed By: #### 1 9123-9, 74494-5 ####[facility]ORYCLIA [id number] [place] [address] [place] Creatinine [Mass/Vol] 0.56 mg/dL Low 0.73-1.22 [facility] Comment on above: Order Comment: Speci men Type: BLOOD SPECIMENOrdering Facility: [facility] Address: [address] [place] [address] Performed By: #### 1 9123-9, 35061-0 ####[facility]ORYCLIA [id number] [place] [address] [place] GFR/1.73 sq M.predicted MDRD (S/P/Bld) [Vol rate/Area] mL/min/{1.73_m2} Normal [facility] Comment on above: Order Comment: Speci men Type: BLOOD SPECIMENOrdering Facility: [facility] Address: [address] [phone] Result Comment: >60e GFR (Estimated GFR) Units [...] actual GFR. Performed By: #### 1 9123-9, 02315-4 ####[facility] [id number] [place] [address] [place] Glucose [Mass/Vol] 134 mg/dL High 74-99 [facility] Comment on above: Order Comment: Shira feldman Type: BLOOD SPECIMENOrdering Facility: [facility] Address: [address] [place] [address] Result Comment: The [place] [employer] (ADA) provides guidance for cutoff [...] Standards of Medical Care in Diabetes 2016, [place] [employer]. Diabetes Care. 2016.39(Suppl 1). Performed By: #### 1 9123-9, 95418-3 ####[facility]ATORYCLIA [id number] [place] [address] [place] Potassium [Moles/Vol] 3.8 mmol/L Normal 3.7-5.1 [facility] Comment on above: Order Comment: Shira feldman Type: BLOOD SPECIMENOrdering Facility: [facility] Address: [address] [place] [place] [address] Performed By: #### 1 9123-9, 31518-6 ####[facility]ORYCLIA [id number] [address] Sodium [Moles/Vol] 140 mmol/L Normal 136-144 [facility] Comment on above: Order Comment: Speci men Type: BLOOD SPECIMENOrdering Facility: [facility] Address: [address] [place] [address] Performed By: #### 1 9123-9, 97824-7 ####[facility]ORYCLIA [id number] [address] [place] Urea nitrogen [Mass/Vol] 24 mg/dL Normal 9-24 [facility] Comment on above: Order Comment: Speci men Type: BLOOD SPECIMENOrdering Facility: [facility] Address: [address] [place] [address] Performed By: #### 1 91239, 87870-6 ####[facility]ORYCLIA [id number] [address] STATES [facility] CBC panel Auto (Bld)on 06-26 Erythrocyte distribution width (RBC) [Ratio] 15.9 % High 11.5-15.0 [facility] Comment on above: Order Comment: Speci men Type: BLOOD SPECIMENOrdering Facility: [facility] Address: [address] [place] [address] Performed By: #### 5 8410-2 ####[facility]ORYCLIA [id number] [address] Hematocrit (Bld) [Volume fraction] 29.8 % Low 39.0-51.0 [facility] Comment on above: Order Comment: Speci men Type: BLOOD SPECIMENOrdering Facility: [facility] Address: [address] [place] [address] Performed By: #### 5 8410-2 ####[facility]ATORYCLIA [id number] [place] [address] [place] Hemoglobin (Bld) [Mass/Vol] 9.1 g/dL Low 13.0-17.0 [facility] Comment on above: Order Comment: Speci men Type: BLOOD SPECIMENOrdering Facility: [facility] Address: [address] [place] [address] Performed By: #### 5 8410-2 ####[facility]ATORYCLIA [id number] [address] MCH (RBC) [Entitic mass] 27.8 pg Normal 26.0-34.0 [facility] Comment on above: Order Comment: Speci men Type: BLOOD SPECIMENOrdering Facility: [facility] Address: [address] [place] [address] Performed By: #### 5 8410-2 ####[facility]ORYCLIA [id number] [address] OF [facility] MCHC (RBC) [Mass/Vol] 30.5 g/dL Normal 30.5-36.0 [facility] Comment on above: Order Comment: Speci men Type: BLOOD SPECIMENOrdering Facility: [facility] Address: [address] [place] [address] Performed By: #### 5 8410-2 ####[facility]ORYCLIA [id number] [address] MCV (RBC) [Entitic vol] 91.1 fL Normal 80.0-100.0 [facility] Comment on above: Order Comment: Speci men Type: BLOOD SPECIMENOrdering Facility: [facility] Address: [address] [place] [address] Performed By: #### 5 8410-2 ####[facility]ORYCLIA [id number] [address] Nucleated RBC (Bld) [#/Vol] 10*3/uL Normal <0.01 [facility] Comment on above: Order Comment: Speci men Type: BLOOD SPECIMENOrdering Facility: [facility] Address: [address] [place] [address] Performed By: #### 5 8410-2 ####[facility]ORYCLIA [id number] [address] Platelet mean volume (Bld) [Entitic vol] 10.3 fL Normal 9.0-12.7 [facility] Comment on above: Order Comment: Speci men Type: BLOOD SPECIMENOrdering Facility: [facility] Address: [address] [place] [address] Performed By: #### 5 8410-2 ####[facility]ORYCLIA [id number] [address] [place] Platelets (Bld) [#/Vol] 336 10*3/uL Normal 150-400 [facility] Comment on above: Order Comment: Speci men Type: BLOOD SPECIMENOrdering Facility: [facility] Address: [address] [place] [address] Performed By: #### 5 8410-2 ####[facility]ORYCLIA [id number] [address] [place] RBC (Bld) [#/Vol] 3.27 10*6/uL Low 4.20-6.00 [facility] Comment on above: Order Comment: Speci men Type: BLOOD SPECIMENOrdering Facility: [facility] Address: [address] [place] [address] Performed By: #### 5 8410-2 ####[facility]ORYCLIA [id number] [address] [place] WBC (Bld) [#/Vol] 9.14 10*3/uL Normal 3.70-11.00 [facility] Comment on above: Order Comment: Speci men Type: BLOOD SPECIMENOrdering Facility: [facility] Address: [address] [place] [address] Performed By: #### 5 8410-2 ####[facility]ORYCLIA [id number] [address] OF [facility] CONSULT PROGon 06-26-[address] [facility] Magnesium SerPl-mCncon 06-26 Magnesium [Mass/Vol] 2.2 mg/dL Normal 1.7-2.3 [facility] Comment on above: Order Comment: Speci men Type: BLOOD SPECIMENOrdering Facility: [facility] Address: [address] [place] [address] Performed By: #### 1 9123-9, 52369-2 ####[facility]ORYCLIA [id number] [address] OF [facility] NURSING PROGon 06-26-[address] [facility] NURSING PROG Normal [facility] Basic metabolic 2000 panelon 06-25-2021 Anion gap [Moles/Vol] 8 mmol/L Low 9-18 [facility] Comment on above: Order Comment: Speci men Type: BLOOD SPECIMENOrdering Facility: [facility] Address: [address] [place] [address] Performed By: #### 2 432-2, ####[facility]ORYCLIA [id number] [place] [address] [place] Calcium [Mass/Vol] 8.8 mg/dL Normal 8.5-10.2 [facility] Comment on above: Order Comment: Speci men Type: BLOOD SPECIMENOrdering Facility: [facility] Address: [address] [place] [address] Performed By: #### 2 432-2, ####[facility]ATORYCLIA [id number] [place] [address] [place] Chloride [Moles/Vol] 105 mmol/L Normal 97-105 [facility] Comment on above: Order Comment: Speci men Type: BLOOD SPECIMENOrdering Facility: [facility] Address: [address] [place] [address] Performed By: #### 2 432-2, ####[facility]ORYCLIA [id number] [place] [address] [place] CO2 [Moles/Vol] 27 mmol/L Normal 22-30 [facility] Comment on above: Order Comment: Speci men Type: BLOOD SPECIMENOrdering Facility: [facility] Address: [address] [place] [address] Performed By: #### 2 432-, ####[facility]ATORYCLIA [id number] [place] [id number] [place] Creatinine [Mass/Vol] 0.59 mg/dL Low 0.73-1.22 [facility] Comment on above: Order Comment: Speci men Type: BLOOD SPECIMENOrdering Facility: [facility] Address: [address] [place] [address] Performed By: #### 2 43205-08, ####[facility]ORYCLIA [id number] [address] [place] GFR/1.73 sq M.predicted MDRD (S/P/Bld) [Vol rate/Area] mL/min/{1.73_m2} Normal [facility] Comment on above: Order Comment: Speci men Type: BLOOD SPECIMENOrdering Facility: [facility] Address: [address] [place] [address] Result Comment: >60e GFR (Estimated GFR) Units [...] actual GFR. Performed By: #### 2 43205-08, ####[facility]ATORYCLIA [id number] [place] [address] [place] Glucose [Mass/Vol] 132 mg/dL High 74-99 [facility] Comment on above: Order Comment: Speci men Type: BLOOD SPECIMENOrdering Facility: [facility] Address: [address] [place], [place] [id number] Result Comment: The [place] [employer] (ADA) provides guidance for cutoff [...] Standards of Medical Care in Diabetes 2016, [place] [employer]. Diabetes Care. 2016.39(Suppl 1). Performed By: #### 2 4320-06, ####[facility] OnlineCABE[facility] LABORATORYCLIA [id number] [place] [address] [place] Potassium [Moles/Vol] 3.9 mmol/L Normal 3.7-5.1 [facility] Comment on above: Order Comment: Johni men Type: BLOOD SPECIMENOrdering Facility: [facility] Address: [address] [place], [place] [address] Performed By: #### 2 4320-06, ####[facility] OnlineCAB[facility] LABORATORYCLIA [id number] [place] [address] [place] Sodium [Moles/Vol] 140 mmol/L Normal 136-144 [facility] Comment on above: Order Comment: Speci men Type: BLOOD SPECIMENOrdering Facility: [facility] Address: [address] Performed By: #### 2 4320-06, ####[facility]ATORYCLIA [id number] [place] [address] [place] Urea nitrogen [Mass/Vol] 24 mg/dL Normal 9-24 [facility] Comment on above: Order Comment: Speci men Type: BLOOD SPECIMENOrdering Facility: [facility] Address: [address] [place] [address] Performed By: #### 2 4321-2, 85778-0 ####[facility]ATORYCLIA [id number] [address] [place] CASE MANAGEMon 06-25-[address] [facility] CBC panel Auto (Bld)on 06-25 Erythrocyte distribution width (RBC) [Ratio] 15.9 % High 11.5-15.0 [facility] Comment on above: Order Comment: Speci men Type: BLOOD SPECIMENOrdering Facility: [facility] Address: [address] [place] [address] Performed By: #### 5 8410-2 ####[facility]ATORYCLIA [id number] [address] [place] Hematocrit (Bld) [Volume fraction] 31.0 % Low 39.0-51.0 [facility] Comment on above: Order Comment: Speci men Type: BLOOD SPECIMENOrdering Facility: [facility] Address: [address] [place] [address] Performed By: #### 5 8410-2 ####[facility]ORYCLIA [id number] [address] STATES [facility] Hemoglobin (Bld) [Mass/Vol] 9.4 g/dL Low 13.0-17.0 [facility] Comment on above: Order Comment: Speci men Type: BLOOD SPECIMENOrdering Facility: [facility] Address: [address] [place] [address] Performed By: #### 5 8410-2 ####[facility]ATORYCLIA [id number] [address] [place] MCH (RBC) [Entitic mass] 28.1 pg Normal 26.0-34.0 [facility] Comment on above: Order Comment: Speci men Type: BLOOD SPECIMENOrdering Facility: [facility] Address: [address] [place] [address] Performed By: #### 5 8410-2 ####[facility] [id number] [address] [place] [facility]C (RBC) [Mass/Vol] 30.3 g/dL Low 30.5-36.0 [facility] Comment on above: Order Comment: Speci men Type: BLOOD SPECIMENOrdering Facility: [facility] Address: [address] [place] [address] Performed By: #### 5 8410-2 ####[facility]ORATORYCLIA [id number] [address] MCV (RBC) [Entitic vol] 92.5 fL Normal 80.0-100.0 [facility] Comment on above: Order Comment: Speci men Type: BLOOD SPECIMENOrdering Facility: [facility] Address: [address] [place] [address] Performed By: #### 5 8410-2 ####[facility]ATORYCLIA [id number] [address] Nucleated RBC (Bld) [#/Vol] 10*3/uL Normal <0.01 [facility] Comment on above: Order Comment: Speci men Type: BLOOD SPECIMENOrdering Facility: [facility] Address: [address] [place] [address] Performed By: #### 5 8410-2 ####[facility]ATORYCLIA [id number] [address] [place] Platelet mean volume (Bld) [Entitic vol] 10.5 fL Normal 9.0-12.7 [facility] Comment on above: Order Comment: Speci men Type: BLOOD SPECIMENOrdering Facility: [facility] Address: [address] [place] [address] Performed By: #### 5 8410-2 ####[facility]ATORYCLIA [id number] [address] [place] Platelets (Bld) [#/Vol] 311 10*3/uL Normal 150-400 [facility] Comment on above: Order Comment: Speci men Type: BLOOD SPECIMENOrdering Facility: [facility] Address: [address] [place] [address] Performed By: #### 5 8410-2 ####[facility]ATORYCLIA [id number] [address] [facility] RBC (Bld) [#/Vol] 3.35 10*6/uL Low 4.20-6.00 [facility] Comment on above: Order Comment: Speci men Type: BLOOD SPECIMENOrdering Facility: [facility] Address: [address] [place] [address] Performed By: #### 5 8410-2 ####[facility]ATORYCLIA [id number] [address] WBC (Bld) [#/Vol] 9.57 10*3/uL Normal 3.70-11.00 [facility] Comment on above: Order Comment: Speci men Type: BLOOD SPECIMENOrdering Facility: [facility] Address: [address] [place] [address] Performed By: #### 5 8410-2 ####[facility]ATORYCLIA [id number] [address] Magnesium SerPl-mCncon 06-25 Magnesium [Mass/Vol] 2.4 mg/dL High 1.7-2.3 [facility] Comment on above: Order Comment: Speci men Type: BLOOD SPECIMENOrdering Facility: [facility] Address: [address] [place] [address] Performed By: #### 2 4321-2, 17213-2 ####[facility]ATORYCLIA [id number] [address] Basic metabolic 2000 panelon 06-24-2021 Anion gap [Moles/Vol] 9 mmol/L Normal -18 [facility] Comment on above: Order Comment: Speci men Type: BLOOD SPECIMENOrdering Facility: [facility] Address: [address] [place] [address] Performed By: #### 1 9123-9, 15718-8 ####[facility]ATORYCLIA [id number] [place] [address] [place] Calcium [Mass/Vol] 8.6 mg/dL Normal 8.5-10.2 [facility] Comment on above: Order Comment: Speci men Type: BLOOD SPECIMENOrdering Facility: [facility] Address: [address] [place] [address] Performed By: #### 1 9123-9, 67389-8 ####[facility]ATORYCLIA [id number] [place] [address] [place] Chloride [Moles/Vol] 103 mmol/L Normal 97-105 [facility] Comment on above: Order Comment: Speci men Type: BLOOD SPECIMENOrdering Facility: [facility] Address: [address] [place] [address] Performed By: #### 1 239, 24242-8 ####[facility]ATORYCLIA [id number] [place] [address] [place] CO2 [Moles/Vol] 26 mmol/L Normal 22-30 [facility] Comment on above: Order Comment: Speci men Type: BLOOD SPECIMENOrdering Facility: [facility] Address: [address] [place] [address] Performed By: #### 1 91239, ####[facility]ATORYCLIA [id number] [place] [address] [place] Creatinine [Mass/Vol] 0.60 mg/dL Low 0.73-1.22 [facility] Comment on above: Order Comment: Speci men Type: BLOOD SPECIMENOrdering Facility: [facility] Address: [address] [place] [address] Performed By: #### 1 9123-9, 99418-9 ####[facility]ATORYCLIA [id number] [place] [address] [place] GFR/1.73 sq M.predicted MDRD (S/P/Bld) [Vol rate/Area] mL/min/{1.73_m2} Normal [facility] Comment on above: Order Comment: Shira feldman Type: BLOOD SPECIMENOrdering Facility: [facility] Address: [address] [place] [address] Result Comment: >60e GFR (Estimated GFR) Units [...] actual GFR. Performed By: #### 1 9123-9, 86005-0 ####[facility]ATORYCLIA [id number] [place] [address] [place] Glucose [Mass/Vol] 126 mg/dL High 74-99 [facility] Comment on above: Order Comment: Shira feldman Type: BLOOD SPECIMENOrdering Facility: [facility] Address: [place] [id number] Result Comment: The [place] [employer] (ADA) provides guidance for cutoff [...] Standards of Medical Care in Diabetes 2016, [place] [employer]. Diabetes Care. 2016.39(Suppl 1). Performed By: #### 1 9123-9, 30283-9 ####[facility]ORATORYCLIA [id number] [place] [address] [place] Potassium [Moles/Vol] 3.9 mmol/L Normal 3.7-5.1 [facility] Comment on above: Order Comment: Speci men Type: BLOOD SPECIMENOrdering Facility: [facility] Address: [address] [place] [address] Performed By: #### 1 9123-9, 91097-7 ####[facility]ATORYCLIA [id number] [place] [address] [place] Sodium [Moles/Vol] 138 mmol/L Normal 136-144 [facility] Comment on above: Order Comment: Speci men Type: BLOOD SPECIMENOrdering Facility: [facility] Address: [address] [place] [address] Performed By: #### 1 9123-9, 86247-8 ####[facility]ATORYCLIA [id number] [address] [place] Urea nitrogen [Mass/Vol] 24 mg/dL Normal 9-24 [facility] Comment on above: Order Comment: Speci men Type: BLOOD SPECIMENOrdering Facility: [facility] Address: [address] [place] [address] Performed By: #### 1 9123-9, ####[facility]ATORYCLIA [id number] [address] [place] CASE MANAGEMon 06-24-[address] [facility] CASE MANAGEM [facility] CASE MANAGEM Normal [facility] CBC panel Auto (Bld)on 06-24 Erythrocyte distribution width (RBC) [Ratio] 16.1 % High 11.5-15.0 [facility] Comment on above: Order Comment: Speci men Type: BLOOD SPECIMENOrdering Facility: [facility] Address: [address] [place] [address] Performed By: #### 5 8410-2 ####[facility]ATORYCLIA [id number] [place] [address] [place] Hematocrit (Bld) [Volume fraction] 31.7 % Low 39.0-51.0 [facility] Comment on above: Order Comment: Speci men Type: BLOOD SPECIMENOrdering Facility: [facility] Address: [address] [place] [address] Performed By: #### 5 8410-2 ####[facility]ATORYCLIA [id number] [address] [facility] Hemoglobin (Bld) [Mass/Vol] 9.7 g/dL Low 13.0-17.0 [facility] Comment on above: Order Comment: Speci men Type: BLOOD SPECIMENOrdering Facility: [facility] Address: [address] [place] [address] Performed By: #### 5 8410-2 ####[facility]ATORYCLIA [id number] [address] STATES OF [facility] MCH (RBC) [Entitic mass] 28.0 pg Normal 26.0-34.0 [facility] Comment on above: Order Comment: Speci men Type: BLOOD SPECIMENOrdering Facility: [facility] Address: [address] [place] [address] Performed By: #### 5 8410-2 ####[facility]ATORYCLIA [id number] [address] MCHC (RBC) [Mass/Vol] 30.6 g/dL Normal 30.5-36.0 [facility] Comment on above: Order Comment: Speci men Type: BLOOD SPECIMENOrdering Facility: [facility] Address: [address] [place] [address] Performed By: #### 5 8410-2 ####[facility]ATORYCLIA [id number] [address] MCV (RBC) [Entitic vol] 91.4 fL Normal 80.0-100.0 [facility] Comment on above: Order Comment: Speci men Type: BLOOD SPECIMENOrdering Facility: [facility] Address: [address] [place] [address] Performed By: #### 5 8410-2 ####[facility]ATORYCLIA [id number] [address] [place] Nucleated RBC (Bld) [#/Vol] 10*3/uL Normal <0.01 [facility] Comment on above: Order Comment: Speci men Type: BLOOD SPECIMENOrdering Facility: [facility] Address: [address] [place] [address] Performed By: #### 5 8410-2 ####[facility]ATORYCLIA [id number] [address] [place] Platelet mean volume (Bld) [Entitic vol] 11.0 fL Normal 9.0-12.7 [facility] Comment on above: Order Comment: Speci men Type: BLOOD SPECIMENOrdering Facility: [facility] Address: [address] [place] [address] Performed By: #### 5 8410-2 ####[facility]ATORYCLIA [id number] [address] Platelets (Bld) [#/Vol] 358 10*3/uL Normal 150-400 [facility] Comment on above: Order Comment: Speci men Type: BLOOD SPECIMENOrdering Facility: [facility] Address: [address] [place] [address] Performed By: #### 5 8410-2 ####[facility]ATORYCLIA [id number] [address] [place] RBC (Bld) [#/Vol] 3.47 10*6/uL Low 4.20-6.00 [facility] Comment on above: Order Comment: Speci men Type: BLOOD SPECIMENOrdering Facility: [facility] Address: [address] [place] [address] Performed By: #### 5 8410-2 ####[facility]ATORYCLIA [id number] [address] [place] WBC (Bld) [#/Vol] 10.07 10*3/uL Normal 3.70-11.00 [facility] Comment on above: Order Comment: Speci men Type: BLOOD SPECIMENOrdering Facility: [facility] Address: [address] [place] [address] Performed By: #### 5 8410-2 ####[facility]ATORYCLIA [id number] [place] [address] [place] Magnesium SerPl-mCncon 06-24 Magnesium [Mass/Vol] 2.3 mg/dL Normal 1.7-2.3 [facility] Comment on above: Order Comment: Speci men Type: BLOOD SPECIMENOrdering Facility: [facility] Address: [address] [place] [address] Performed By: #### 1 9123-9, 58011-5 ####[facility]ATORYCLIA [id number] [place] [address] [place] ALLIED HEALTHon 06-23-[address] [facility] Basic metabolic 2000 panelon 06-23-2021 Anion gap [Moles/Vol] 9 mmol/L Normal 9-18 [facility] Comment on above: Order Comment: Speci men Type: BLOOD SPECIMENOrdering Facility: [facility] Address: [address] [place] [address] Performed By: #### 1 9123-9, 11235-8 ####[facility]ATORYCLIA [id number] [place] [address] [place] Calcium [Mass/Vol] 8.4 mg/dL Low 8.5-10.2 [facility] Comment on above: Order Comment: Speci men Type: BLOOD SPECIMENOrdering Facility: [facility] Address: [address] [place] [address] Performed By: #### 1 9123-9, 20058-9 ####[facility]ATORYCLIA [id number] [place] [address] [place] Chloride [Moles/Vol] 104 mmol/L Normal 97-105 [facility] Comment on above: Order Comment: Speci men Type: BLOOD SPECIMENOrdering Facility: [facility] Address: [address] [place], [place] [address] [address] Performed By: #### 1 9123-9, 05759-6 ####[facility]ATORYCLIA [id number] [address] STATES OF [facility] CO2 [Moles/Vol] 26 mmol/L Normal 22-30 [facility] Comment on above: Order Comment: Speci men Type: BLOOD SPECIMENOrdering Facility: [facility] Address: [address] [place] [address] Performed By: #### 1 9123-9, 44835-4 ####[facility]ATORYCLIA [id number] [address] [place] Creatinine [Mass/Vol] 0.62 mg/dL Low 0.73-1.22 [facility] Comment on above: Order Comment: Speci men Type: BLOOD SPECIMENOrdering Facility: [facility] Address: [address] [place] [address] Performed By: #### 1 9123-9, 62462-2 ####[facility]ATORYCLIA [id number] [address] [place] GFR/1.73 sq M.predicted MDRD (S/P/Bld) [Vol rate/Area] mL/min/{1.73_m2} Normal [facility] Comment on above: Order Comment: Speci men Type: BLOOD SPECIMENOrdering Facility: [facility] Address: [address] [place] [address] Result Comment: >60e GFR (Estimated GFR) Units [...] actual GFR. Performed By: #### 1 9123-9, 11425-6 ####[facility]ATORYCLIA [id number] [place] [address] [place] Glucose [Mass/Vol] 111 mg/dL High 74-99 [facility] Comment on above: Order Comment: Speci men Type: BLOOD SPECIMENOrdering Facility: [facility] Address: [address] [place] [address] Result Comment: The [place] [employer] (ADA) provides guidance for cutoff [...] Standards of Medical Care in Diabetes 2016, [place] [employer]. Diabetes Care. 2016.39(Suppl 1). Performed By: #### 1 9123-9, 97913-3 ####[facility]ATORYCLIA [id number] [place] [address] [place] Potassium [Moles/Vol] 4.1 mmol/L Normal 3.7-5.1 [facility] Comment on above: Order Comment: Speci men Type: BLOOD SPECIMENOrdering Facility: [facility] Address: [address] [place] [address] Performed By: #### 1 9123-9, 38719-4 ####[facility]ATORYCLIA [id number] [place] [address] [place] Sodium [Moles/Vol] 139 mmol/L Normal 136-144 [facility] Comment on above: Order Comment: Speci men Type: BLOOD SPECIMENOrdering Facility: [facility] Address: [address] [place] [address] Performed By: #### 1 9123-9-2 ####[facility]ATORYCLIA [id number] [place] [address] [place] Urea nitrogen [Mass/Vol] 26 mg/dL High 9-24 [facility] Comment on above: Order Comment: Speci men Type: BLOOD SPECIMENOrdering Facility: [facility] Address: [address] [place] [address] Performed By: #### 1 9123-9, 76666-2 ####[facility]ATORYCLIA [id number] [address] [facility] CASE MANAGEMon 06-23-[address] [facility] CBC panel Auto (Bld)on 06-23 Erythrocyte distribution width (RBC) [Ratio] 16.0 % High 11.5-15.0 [facility] Comment on above: Order Comment: Speci men Type: BLOOD SPECIMENOrdering Facility: [facility] Address: [address] [place] [address] Performed By: #### 5 8410-2 ####[facility]ATORYCLIA [id number] [address] STATES OF [facility] Hematocrit (Bld) [Volume fraction] 31.1 % Low 39.0-51.0 [facility] Comment on above: Order Comment: Speci men Type: BLOOD SPECIMENOrdering Facility: [facility] Address: [address] [place] [address] Performed By: #### 5 8410-2 ####[facility]ATORYCLIA [id number] [place] [address] [place] Hemoglobin (Bld) [Mass/Vol] 9.5 g/dL Low 13.0-17.0 [facility] Comment on above: Order Comment: Speci men Type: BLOOD SPECIMENOrdering Facility: [facility] Address: [address] [place] [address] Performed By: #### 5 8410-2 ####[facility]ATORYCLIA [id number] [place] [address] [place] MCH (RBC) [Entitic mass] 28.1 pg Normal 26.0-34.0 [facility] Comment on above: Order Comment: Speci men Type: BLOOD SPECIMENOrdering Facility: [facility] Address: [address] [place] [address] Performed By: #### 5 8410-2 ####[facility]ATORYCLIA [id number] [address] MCHC (RBC) [Mass/Vol] 30.5 g/dL Normal 30.5-36.0 [facility] Comment on above: Order Comment: Speci men Type: BLOOD SPECIMENOrdering Facility: [facility] Address: [address] [place] [address] Performed By: #### 5 8410-2 ####[facility]ATORYCLIA [id number] [address] MCV (RBC) [Entitic vol] 92.0 fL Normal 80.0-100.0 [facility] Comment on above: Order Comment: Speci men Type: BLOOD SPECIMENOrdering Facility: [facility] Address: [address] [place] [address] Performed By: #### 5 8410-2 ####[facility]ATORYCLIA [id number] [address] Nucleated RBC (Bld) [#/Vol] 10*3/uL Normal <0.01 [facility] Comment on above: Order Comment: Speci men Type: BLOOD SPECIMENOrdering Facility: [facility] Address: [address] [place] [address] Performed By: #### 5 8410-2 ####[facility]ATORYCLIA [id number] [address] Platelet mean volume (Bld) [Entitic vol] 11.0 fL Normal 9.0-12.7 [facility] Comment on above: Order Comment: Speci men Type: BLOOD SPECIMENOrdering Facility: [facility] Address: [address] [place] [address] Performed By: #### 5 8410-2 ####[facility]ATORYCLIA [id number] [place] [address] [place] Platelets (Bld) [#/Vol] 361 10*3/uL Normal 150-400 [facility] Comment on above: Order Comment: Speci men Type: BLOOD SPECIMENOrdering Facility: [facility] Address: [address] [place] [address] Performed By: #### 5 8410-2 ####[facility]ATORYCLIA [id number] [place] [address] [place] RBC (Bld) [#/Vol] 3.38 10*6/uL Low 4.20-6.00 [facility] Comment on above: Order Comment: Speci men Type: BLOOD SPECIMENOrdering Facility: [facility] Address: [address] [place] [address] Performed By: #### 5 8410-2 ####[facility]ORYCLIA [id number] [address] [facility] WBC (Bld) [#/Vol] 9.02 10*3/uL Normal 3.70-11.00 [facility] Comment on above: Order Comment: Speci men Type: BLOOD SPECIMENOrdering Facility: [facility] Address: [address] [place] [address] Performed By: #### 5 8410-2 ####[facility]ATORYCLIA [id number] [address] [place] CONSULT PROGon 06-23-[address] [facility] CONSULT PROG Normal [facility] Magnesium SerPl-mCncon 06-23 Magnesium [Mass/Vol] 2.4 mg/dL High 1.7-2.3 [facility] Comment on above: Order Comment: Speci men Type: BLOOD SPECIMENOrdering Facility: [facility] Address: [address] [place] [address] Performed By: #### 1 9123-9, 05444-5 ####[facility]ATORYCLIA [id number] [address] [place] THERAPY NTon 06-23-[address] [facility] Vancomycin random [Mass/Vol] on 06-23-2021 Vancomycin [Mass/Vol] 22.8 ug/mL High 10.0-20.0 [facility] Comment on above: Order Comment: Speci men Type: BLOOD SPECIMENOrdering Facility: [facility] Address: [address] [place] [address] Result Comment: Refe rence ranges and high/low indicator flags are provided as general guidelines only. The treating physician must determine appropriate target levels/dosing based on the specific clinical situation. Performed By: #### 4 091-5 ####[facility]ATORYCLIA [id number] [address] [place] XR MOD BARIUM SWALLOW W SPEE Lore 06-23-2021 XR MOD BARIUM SWALLOW W SPEECH Normal [facility] Basic metabolic 2000 panelon 06-22-2021 Anion gap [Moles/Vol] 6 mmol/L Low 9-18 [facility] Comment on above: Order Comment: Speci men Type: BLOOD SPECIMENOrdering Facility: [facility] Address: [address] [place] [address] Performed By: #### 2 4321-2, 13483-6 ####[facility]ATORYCLIA [id number] [place] [address] [place] Calcium [Mass/Vol] 8.5 mg/dL Normal 8.5-10.2 [facility] Comment on above: Order Comment: Speci men Type: BLOOD SPECIMENOrdering Facility: [facility] Address: [address] [place], [place] [id number] Performed By: #### 2 4321-2, ####[facility]ATORYCLIA [id number] [place] [address] [place] Chloride [Moles/Vol] 105 mmol/L Normal 97-105 [facility] Comment on above: Order Comment: Speci men Type: BLOOD SPECIMENOrdering Facility: [facility] Address: [address] [place], [place] [address] [address] Performed By: #### 2 4321-2, ####[facility]ATORYCLIA [id number] [address] [place] CO2 [Moles/Vol] 26 mmol/L Normal 22-30 [facility] Comment on above: Order Comment: Speci men Type: BLOOD SPECIMENOrdering Facility: [facility] Address: [address] [place] [address] Performed By: #### 2 43205-08, ####[facility]ATORYCLIA [id number] [address] [place] Creatinine [Mass/Vol] 0.56 mg/dL Low 0.73-1.22 [facility] Comment on above: Order Comment: Speci men Type: BLOOD SPECIMENOrdering Facility: [facility] Address: [address] [place] [address] Performed By: #### 2 43205-08, ####[facility]ATORYCLIA [id number] [address] [place] GFR/1.73 sq M.predicted MDRD (S/P/Bld) [Vol rate/Area] mL/min/{1.73_m2} Normal [facility] Comment on above: Order Comment: Speci men Type: BLOOD SPECIMENOrdering Facility: [facility] Address: [address] [place] [address] Result Comment: >60e GFR (Estimated GFR) Units [...] reflect actual GFR. Performed By: #### 2 ####[facility]ATORYCLIA [id number] [place] [address] [place] Glucose [Mass/Vol] 120 mg/dL High 74-99 [facility] Comment on above: Order Comment: Speci men Type: BLOOD SPECIMENOrdering Facility: [facility] Address: [address] [place] [address] Result Comment: The [place] [employer] (ADA) provides guidance for cutoff [...] Standards of Medical Care in Diabetes 2016, [place] [employer]. Diabetes Care. 2016.39(Suppl 1). Performed By: #### 2 ####[facility]ORATORYCLIA [id number] [place] [address] [place] Potassium [Moles/Vol] 4.0 mmol/L Normal 3.7-5.1 [facility] Comment on above: Order Comment: Speci men Type: BLOOD SPECIMENOrdering Facility: [facility] Address: [address] [place], [place] [id number] Performed By: #### 2 ####[facility]ORATORYCLIA [id number] [place] [id number] [place] Sodium [Moles/Vol] 137 mmol/L Normal 136-144 [facility] Comment on above: Order Comment: Speci men Type: BLOOD SPECIMENOrdering Facility: [facility] Address: [address] [place], [place] [id number] Performed By: #### 2 ####[facility]ORATORYCLIA [id number] [address] [place] Urea nitrogen [Mass/Vol] 25 mg/dL High 9-24 [facility] Comment on above: Order Comment: Speci men Type: BLOOD SPECIMENOrdering Facility: [facility] Address: [address] [place] [address] Performed By: #### 2 4321-2, 15408-3 ####[facility]ATORYCLIA [id number] [address] [place] CASE MANAGEMon 06-22-[address] [facility] CBC panel Auto (Bld)on 06-22 Erythrocyte distribution width (RBC) [Ratio] 16.0 % High 11.5-15.0 [facility] Comment on above: Order Comment: Speci men Type: BLOOD SPECIMENOrdering Facility: [facility] Address: [address] [place] [address] Performed By: #### 5 8410-2 ####[facility]ATORYCLIA [id number] [address] [place] Hematocrit (Bld) [Volume fraction] 30.5 % Low 39.0-51.0 [facility] Comment on above: Order Comment: Speci men Type: BLOOD SPECIMENOrdering Facility: [facility] Address: [address] [place] [address] Performed By: #### 5 8410-2 ####[facility]ATORYCLIA [id number] [address] [place] Hemoglobin (Bld) [Mass/Vol] 9.3 g/dL Low 13.0-17.0 [facility] Comment on above: Order Comment: Speci men Type: BLOOD SPECIMENOrdering Facility: [facility] Address: [address] [place] [address] Performed By: #### 5 8410-2 ####[facility]ATORYCLIA [id number] [address] [place] MCH (RBC) [Entitic mass] 28.4 pg Normal 26.0-34.0 [facility] Comment on above: Order Comment: Speci men Type: BLOOD SPECIMENOrdering Facility: [facility] Address: [address] [place] [address] Performed By: #### 5 8410-2 ####[facility]ATORYCLIA [id number] [address] MCHC (RBC) [Mass/Vol] 30.5 g/dL Normal 30.5-36.0 [facility] Comment on above: Order Comment: Speci men Type: BLOOD SPECIMENOrdering Facility: [facility] Address: [address] [place] [address] Performed By: #### 5 8410-2 ####[facility]ATORYCLIA [id number] [address] MCV (RBC) [Entitic vol] 93.3 fL Normal 80.0-100.0 [facility] Comment on above: Order Comment: Speci men Type: BLOOD SPECIMENOrdering Facility: [facility] Address: [address] [place] [address] Performed By: #### 5 8410-2 ####[facility]ATORYCLIA [id number] [address] Nucleated RBC (Bld) [#/Vol] 10*3/uL Normal <0.01 [facility] Comment on above: Order Comment: Speci men Type: BLOOD SPECIMENOrdering Facility: [facility] Address: [address] [place] [address] Performed By: #### 5 8410-2 ####[facility]ATORYCLIA [id number] [address] Platelet mean volume (Bld) [Entitic vol] 11.5 fL Normal 9.0-12.7 [facility] Comment on above: Order Comment: Speci men Type: BLOOD SPECIMENOrdering Facility: [facility] Address: [address] [place] [address] Performed By: #### 5 8410-2 ####[facility]CL[facility] [id number] [address] [place] Platelets (Bld) [#/Vol] 346 10*3/uL Normal 150-400 [facility] Comment on above: Order Comment: Speci men Type: BLOOD SPECIMENOrdering Facility: [facility] Address: [address] [place] [address] Performed By: #### 5 8410-2 ####[facility]ATORYCLIA [id number] [address] [place] RBC (Bld) [#/Vol] 3.27 10*6/uL Low 4.20-6.00 [facility] Comment on above: Order Comment: Speci men Type: BLOOD SPECIMENOrdering Facility: [facility] Address: [address] [place] [address] Performed By: #### 5 8410-2 ####[facility]ISCL[facility] [id number] [address] OF [facility] WBC (Bld) [#/Vol] 9.44 10*3/uL Normal 3.70-11.00 [facility] Comment on above: Order Comment: Speci men Type: BLOOD SPECIMENOrdering Facility: [facility] Address: [address] [place] [address] Performed By: #### 5 8410-2 ####[facility]ORYCLIA [id number] [address] [place] HEMOGLOBIN (HGB)on Hemoglobin (Bld) [Mass/Vol] 9.7 g/dL Low 13.0-17.0 [facility] Comment on above: Order Comment: Speci men Type: BLOOD SPECIMENOrdering Facility: [facility] Address: [address] [place] [address] Performed By: #### H GB ####[facility]ATORYCLIA [id number] [address] [place] Magnesium SerPl-mCncon 06-22 Magnesium [Mass/Vol] 2.4 mg/dL High 1.7-2.3 [facility] Comment on above: Order Comment: Speci men Type: BLOOD SPECIMENOrdering Facility: [facility] Address: [address] [place] [address] Performed By: #### 2 4321-2, ####[facility]ATORYCLIA [id number] [address] OF [facility] THERAPY NTon 06-22-[address] [facility] THERAPY NT Normal [facility] aPTT PPPon 06-22-2021 aPTT Coag (PPP) [Time] 62.3 s High 23.0-32.4 [facility] Comment on above: Order Comment: Speci men Type: BLOOD SPECIMENOrdering Facility: [facility] Address: [address] [place] [address] Performed By: #### 1 4979-9 ####[facility]ORYCLIA [id number] [address] [place] ALLIED HEALTHon 06-21-[address] [facility] Basic metabolic 2000 panelon 06-21-2021 Anion gap [Moles/Vol] 8 mmol/L Low 9-18 [facility] Comment on above: Order Comment: Speci men Type: BLOOD SPECIMENOrdering Facility: [facility] Address: [address] [place] [address] Performed By: #### 2 4321-2, ####[facility]ATORYCLIA [id number] [place] [address] [place] Calcium [Mass/Vol] 8.2 mg/dL Low 8.5-10.2 [facility] Comment on above: Order Comment: Speci men Type: BLOOD SPECIMENOrdering Facility: [facility] Address: [address] [place] [address] Performed By: #### 2 4321-2, ####[facility]ATORYCLIA [id number] [place] [address] [place] Chloride [Moles/Vol] 108 mmol/L High 97-105 [facility] Comment on above: Order Comment: Speci men Type: BLOOD SPECIMENOrdering Facility: [facility] Address: [address] [address] Performed By: #### 2 4321-2, ####[facility]ATORYCLIA [id number] [place] [address] [place] CO2 [Moles/Vol] 24 mmol/L Normal 22-30 [facility] Comment on above: Order Comment: Speci men Type: BLOOD SPECIMENOrdering Facility: [facility] Address: [address] [place] [address] Performed By: #### 2 43205-08, ####[facility]ATORYCLIA [id number] [address] [place] Creatinine [Mass/Vol] 0.61 mg/dL Low 0.73-1.22 [facility] Comment on above: Order Comment: Speci men Type: BLOOD SPECIMENOrdering Facility: [facility] Address: [address] [place] [address] Performed By: #### 2 43205-08, ####[facility]ATORYCLIA [id number] [address] [place] GFR/1.73 sq M.predicted MDRD (S/P/Bld) [Vol rate/Area] mL/min/{1.73_m2} Normal [facility] Comment on above: Order Comment: Speci men Type: BLOOD SPECIMENOrdering Facility: [facility] Address: [address] [place] [address] Result Comment: >60e GFR (Estimated GFR) Units [...] actual GFR. Performed By: #### 2 4321-, 94602-5 ####[facility]ATORYCLIA [id number] [place] [address] [place] Glucose [Mass/Vol] 211 mg/dL High 74-99 [facility] Comment on above: Order Comment: Shira feldman Type: BLOOD SPECIMENOrdering Facility: [facility] Address: [address] [phone] Result Comment: The [place] [employer] (ADA) provides guidance for cutoff [...] Standards of Medical Care in Diabetes 2016, [place] [employer]. Diabetes Care. 2016.39(Suppl 1). Performed By: #### 2 432-, ####[facility]ATORYCLIA [id number] [place] [address] [place] Potassium [Moles/Vol] 4.3 mmol/L Normal 3.7-5.1 [facility] Comment on above: Order Comment: Shira feldman Type: BLOOD SPECIMENOrdering Facility: [facility] Address: [address] [phone] Performed By: #### 2 432-, ####[facility]ATORYCLIA [id number] [place] [address] [place] Sodium [Moles/Vol] 140 mmol/L Normal 136-144 [facility] Comment on above: Order Comment: Shira feldman Type: BLOOD SPECIMENOrdering Facility: [facility] Address: [address] [address] Performed By: #### 2 4321-2, ####[facility]ATORYCLIA [id number] [address] STATES [facility] Urea nitrogen [Mass/Vol] 26 mg/dL High 9-24 [facility] Comment on above: Order Comment: Speci men Type: BLOOD SPECIMENOrdering Facility: [facility] Address: [address] [place] [address] Performed By: #### 2 4321-2, ####[facility]ATORYCLIA [id number] [address] CBC panel Auto (Bld)on 06-21 Erythrocyte distribution width (RBC) [Ratio] 16.1 % High 11.5-15.0 [facility] Comment on above: Order Comment: Speci men Type: BLOOD SPECIMENOrdering Facility: [facility] Address: [address] [place] [address] Performed By: #### 5 8410-2 ####[facility]ATORYCLIA [id number] [address] Hematocrit (Bld) [Volume fraction] 29.7 % Low 39.0-51.0 [facility] Comment on above: Order Comment: Speci men Type: BLOOD SPECIMENOrdering Facility: [facility] Address: [address] [place] [address] Performed By: #### 5 8410-2 ####[facility]ORYCLIA [id number] [address] STATES OF [facility] Hemoglobin (Bld) [Mass/Vol] 9.2 g/dL Low 13.0-17.0 [facility] Comment on above: Order Comment: Speci men Type: BLOOD SPECIMENOrdering Facility: [facility] Address: [address] [place] [address] Performed By: #### 5 8410-2 ####[facility]ATORYCLIA [id number] [place] [address] MCH (RBC) [Entitic mass] 28.8 pg Normal 26.0-34.0 [facility] Comment on above: Order Comment: Speci men Type: BLOOD SPECIMENOrdering Facility: [facility] Address: [address] [place] [address] Performed By: #### 5 8410-2 ####[facility]ATORYCLIA [id number] [address] MCHC (RBC) [Mass/Vol] 31.0 g/dL Normal 30.5-36.0 [facility] Comment on above: Order Comment: Speci men Type: BLOOD SPECIMENOrdering Facility: [facility] Address: [address] [place] [address] Performed By: #### 5 8410-2 ####[facility]ORYCLIA [id number] [address] MCV (RBC) [Entitic vol] 93.1 fL Normal 80.0-100.0 [facility] Comment on above: Order Comment: Speci men Type: BLOOD SPECIMENOrdering Facility: [facility] Address: [address] [place] [address] Performed By: #### 5 8410-2 ####[facility]ORYCLIA [id number] [address] Nucleated RBC (Bld) [#/Vol] 10*3/uL Normal <0.01 [facility] Comment on above: Order Comment: Speci men Type: BLOOD SPECIMENOrdering Facility: [facility] Address: [address] [place] [address] Performed By: #### 5 8410-2 ####[facility]ATORYCLIA [id number] [address] Platelet mean volume (Bld) [Entitic vol] 11.6 fL Normal 9.0-12.7 [facility] Comment on above: Order Comment: Speci men Type: BLOOD SPECIMENOrdering Facility: [facility] Address: [address] [place] [address] Performed By: #### 5 8410-2 ####[facility]ATORYCLIA [id number] [address] [facility] Platelets (Bld) [#/Vol] 347 10*3/uL Normal 150-400 [facility] Comment on above: Order Comment: Speci men Type: BLOOD SPECIMENOrdering Facility: [facility] Address: [address] [place] [address] Performed By: #### 5 8410-2 ####[facility]ATORYCLIA [id number] [address] [place] RBC (Bld) [#/Vol] 3.19 10*6/uL Low 4.20-6.00 [facility] Comment on above: Order Comment: Speci men Type: BLOOD SPECIMENOrdering Facility: [facility] Address: [address] [place] [address] Performed By: #### 5 8410-2 ####[facility]ATORYCLIA [id number] [address] OF [facility] WBC (Bld) [#/Vol] 10.29 10*3/uL Normal 3.70-11.00 [facility] Comment on above: Order Comment: Speci men Type: BLOOD SPECIMENOrdering Facility: [facility] Address: [address] [place] [address] Performed By: #### 5 8410-2 ####[facility]ATORYCLIA [id number] [address] CONSULT PROGon 06-21-[address] [facility] CONSULT PROG Normal [facility] Magnesium SerPl-mCncon 06-21 Magnesium [Mass/Vol] 2.5 mg/dL High 1.7-2.3 [facility] Comment on above: Order Comment: Speci men Type: BLOOD SPECIMENOrdering Facility: [facility] Address: [address] [place] [address] Performed By: #### 2 4321-2, 27653-3 ####[facility]ATORYCLIA [id number] [place] [address] [place] NUTRITIONon 06-21-[address] [facility] XR CHEST 1V FRONTALon 2021 XR CHEST 1V FRONTAL Normal [facility] aPTT PPPon 06-21-2021 aPTT Coag (PPP) [Time] 68.5 s High 23.0-32.4 [facility] Comment on above: Order Comment: Speci men Type: BLOOD SPECIMENOrdering Facility: [facility] Address: [address] [place] [address] Performed By: #### 1 4979-9 ####[facility]ATORYCLIA [id number] [address] STATES OF [facility] aPTT Coag (PPP) [Time] 57.8 s High 23.0-32.4 [facility] Comment on above: Order Comment: Speci men Type: BLOOD SPECIMENOrdering Facility: [facility] Address: [address] [place] [address] Performed By: #### 1 4979-9 ####[facility]ATORYCLIA [id number] [place] [address] [place] Basic metabolic 2000 panelon 06-20-2021 Anion gap [Moles/Vol] 9 mmol/L Normal 9-18 [facility] Comment on above: Order Comment: Speci men Type: BLOOD SPECIMENOrdering Facility: [facility] Address: [address] [place] [address] Performed By: #### 2 4321-2, 49427-9 ####[facility]ATORYCLIA [id number] [address] [place] Calcium [Mass/Vol] 8.3 mg/dL Low 8.5-10.2 [facility] Comment on above: Order Comment: Speci men Type: BLOOD SPECIMENOrdering Facility: [facility] Address: [address] [place] [address] Performed By: #### 2 432-2, ####[facility]ATORYCLIA [id number] [place] [address] [place] Chloride [Moles/Vol] 111 mmol/L High 97-105 [facility] Comment on above: Order Comment: Speci men Type: BLOOD SPECIMENOrdering Facility: [facility] Address: [address] [place] [address] Performed By: #### 2 432-2, ####[facility]ATORYCLIA [id number] [place] [address] [place] CO2 [Moles/Vol] 24 mmol/L Normal 22-30 [facility] Comment on above: Order Comment: Speci men Type: BLOOD SPECIMENOrdering Facility: [facility] Address: [address] [place] [address] Performed By: #### 2 43205-08, ####[facility]ATORYCLIA [id number] [address] [place] Creatinine [Mass/Vol] 0.64 mg/dL Low 0.73-1.22 [facility] Comment on above: Order Comment: Speci men Type: BLOOD SPECIMENOrdering Facility: [facility] Address: [address] [place] [address] Performed By: #### 2 43205-08, ####[facility]ATORYCLIA [id number] [place] [address] [place] GFR/1.73 sq M.predicted MDRD (S/P/Bld) [Vol rate/Area] mL/min/{1.73_m2} Normal [facility] Comment on above: Order Comment: Speci men Type: BLOOD SPECIMENOrdering Facility: [facility] Address: [address] [place] [address] Result Comment: >60e GFR (Estimated GFR) Units [...] actual GFR. Performed By: #### 2 43205-08, ####[facility]ATORYCLIA [id number] [place] [address] [place] Glucose [Mass/Vol] 114 mg/dL High 74-99 [facility] Comment on above: Order Comment: Shira feldman Type: BLOOD SPECIMENOrdering Facility: [facility] Address: [address] [phone] Result Comment: The [place] [employer] (ADA) provides guidance for cutoff [...] Standards of Medical Care in Diabetes 2016, [place] [employer]. Diabetes Care. 2016.39(Suppl 1). Performed By: #### 2 4320-06, ####[facility]ATORYCLIA [id number] [place] [address] [place] Potassium [Moles/Vol] 4.1 mmol/L Normal 3.7-5.1 [facility] Comment on above: Order Comment: Shira feldman Type: BLOOD SPECIMENOrdering Facility: [facility] Address: [address] [phone] Performed By: #### 2 43205-08, ####[facility]ATORYCLIA [id number] [place] [address] [place] Sodium [Moles/Vol] 144 mmol/L Normal 136-144 [facility] Comment on above: Order Comment: Speci men Type: BLOOD SPECIMENOrdering Facility: [facility] Address: [address] [place] [address] Performed By: #### 2 4321-2, ####[facility]ATORYCLIA [id number] [address] STATES OF [facility] Urea nitrogen [Mass/Vol] 27 mg/dL High 9-24 [facility] Comment on above: Order Comment: Speci men Type: BLOOD SPECIMENOrdering Facility: [facility] Address: [address] [place] [address] Performed By: #### 2 432-2, ####[facility]ATORYCLIA [id number] [address] [facility] CASE MANAGEMon 06-20-[address] [facility] CBC panel Auto (Bld)on 06-20 Erythrocyte distribution width (RBC) [Ratio] 15.9 % High 11.5-15.0 [facility] Comment on above: Order Comment: Speci men Type: BLOOD SPECIMENOrdering Facility: [facility] Address: [address] [place] [address] Performed By: #### 5 8410-2 ####[facility]ORYCLIA [id number] [address] [place] Hematocrit (Bld) [Volume fraction] 31.0 % Low 39.0-51.0 [facility] Comment on above: Order Comment: Speci men Type: BLOOD SPECIMENOrdering Facility: [facility] Address: [address] [place] [address] Performed By: #### 5 8410-2 ####[facility]ORYCLIA [id number] [address] [place] Hemoglobin (Bld) [Mass/Vol] 9.2 g/dL Low 13.0-17.0 [facility] Comment on above: Order Comment: Speci men Type: BLOOD SPECIMENOrdering Facility: [facility] Address: [address] [place] [address] Performed By: #### 5 8410-2 ####[facility]ATORYCLIA [id number] [address] MCH (RBC) [Entitic mass] 27.4 pg Normal 26.0-34.0 [facility] Comment on above: Order Comment: Speci men Type: BLOOD SPECIMENOrdering Facility: [facility] Address: [address] [place] [address] Performed By: #### 5 8410-2 ####[facility]ATORYCLIA [id number] [address] MCHC (RBC) [Mass/Vol] 29.7 g/dL Low 30.5-36.0 [facility] Comment on above: Order Comment: Speci men Type: BLOOD SPECIMENOrdering Facility: [facility] Address: [address] [place] [address] Performed By: #### 5 8410-2 ####[facility]ATORYCLIA [id number] [address] MCV (RBC) [Entitic vol] 92.3 fL Normal 80.0-100.0 [facility] Comment on above: Order Comment: Speci men Type: BLOOD SPECIMENOrdering Facility: [facility] Address: [address] [place] [address] Performed By: #### 5 8410-2 ####[facility]ATORYCLIA [id number] [address] Nucleated RBC (Bld) [#/Vol] 10*3/uL Normal <0.01 [facility] Comment on above: Order Comment: Speci men Type: BLOOD SPECIMENOrdering Facility: [facility] Address: [address] [place] [address] Performed By: #### 5 8410-2 ####[facility]ATORYCLIA [id number] [address] Platelet mean volume (Bld) [Entitic vol] 11.5 fL Normal 9.0-12.7 [facility] Comment on above: Order Comment: Speci men Type: BLOOD SPECIMENOrdering Facility: [facility] Address: [address] [place] [address] Performed By: #### 5 8410-2 ####[facility]ATORYCLIA [id number] [address] [place] Platelets (Bld) [#/Vol] 343 10*3/uL Normal 150-400 [facility] Comment on above: Order Comment: Speci men Type: BLOOD SPECIMENOrdering Facility: [facility] Address: [address] [place] [address] Performed By: #### 5 8410-2 ####[facility]ATORYCLIA [id number] [address] RBC (Bld) [#/Vol] 3.36 10*6/uL Low 4.20-6.00 [facility] Comment on above: Order Comment: Speci men Type: BLOOD SPECIMENOrdering Facility: [facility] Address: [address] [place] [address] Performed By: #### 5 8410-2 ####[facility]ATORYCLIA [id number] [address] WBC (Bld) [#/Vol] 10.71 10*3/uL Normal 3.70-11.00 [facility] Comment on above: Order Comment: Speci men Type: BLOOD SPECIMENOrdering Facility: [facility] Address: [address] [place] [address] Performed By: #### 5 8410-2 ####[facility]ATORYCLIA [id number] [address] CONSULT PROGon 06-20-[address] [facility] HEMOGLOBIN (HGB)on 2 Hemoglobin (Bld) [Mass/Vol] 9.7 g/dL Low 13.0-17.0 [facility] Comment on above: Order Comment: Speci men Type: BLOOD SPECIMENOrdering Facility: [facility] Address: [address] [place] [address] Performed By: #### H GB ####[facility] LABORATORYCLIA [id number] [address] [place] Magnesium SerPl-mCncon 06-20 Magnesium [Mass/Vol] 2.5 mg/dL High 1.7-2.3 [facility] Comment on above: Order Comment: Speci men Type: BLOOD SPECIMENOrdering Facility: [facility] Address: [address] [place] [address] Performed By: #### 2 4321-2, 58748-8 ####[facility] LABORATORYCLIA [id number] [address] [place] NURSING PROGon 06-20-[address] [facility] THERAPY NTon 06-20-[address] [facility] aPTT PPPon 06-20-2021 aPTT Coag (PPP) [Time] 93.5 s High 23.0-32.4 [facility] Comment on above: Order Comment: Speci men Type: BLOOD SPECIMENOrdering Facility: [facility] Address: [address] [place] [address] Performed By: #### 1 4979-9 ####[facility] LABORATORYCLIA [id number] [address] [place] [facility] aPTT Coag (PPP) [Time] 47.1 s High 23.0-32.4 [facility] Comment on above: Order Comment: Speci men Type: BLOOD SPECIMENOrdering Facility: [facility] Address: [address] [place] [address] Performed By: #### 1 4979-9 ####[facility] [facility]ATORYCLIA [id number] [place] [address] [place] Basic metabolic 2000 panelon 06-19-2021 Anion gap [Moles/Vol] 7 mmol/L Low 9-18 [facility] Comment on above: Order Comment: Speci men Type: BLOOD SPECIMENOrdering Facility: [facility] Address: [address] [place] [address] Performed By: #### 2 4321-2 ####[facility]ORATORYCLIA [id number] [place] [address] [place] Calcium [Mass/Vol] 8.1 mg/dL Low 8.5-10.2 [facility] Comment on above: Order Comment: Speci men Type: BLOOD SPECIMENOrdering Facility: [facility] Address: [address] [place] [address] Performed By: #### 2 4321-2 ####[facility]ORATORYCLIA [id number] [place] [address] [place] Chloride [Moles/Vol] 111 mmol/L High 97-105 [facility] Comment on above: Order Comment: Speci men Type: BLOOD SPECIMENOrdering Facility: [facility] Address: [address] [place] [address] Performed By: #### 2 4321-2 ####[facility]ORATORYCLIA [id number] [place] [address] [place] CO2 [Moles/Vol] 24 mmol/L Normal 22-30 [facility] Comment on above: Order Comment: Speci men Type: BLOOD SPECIMENOrdering Facility: [facility] Address: [address] [place] [address] Performed By: #### 2 4321-2 ####[facility]ATORYCLIA [id number] [place] [address] [place] Creatinine [Mass/Vol] 0.71 mg/dL Low 0.73-1.22 [facility] Comment on above: Order Comment: Speci men Type: BLOOD SPECIMENOrdering Facility: [facility] Address: [address] [place] [address] Performed By: #### 2 4321-2 ####[facility]ORATORYCLIA [id number] [place] [address] [place] GFR/1.73 sq M.predicted MDRD (S/P/Bld) [Vol rate/Area] mL/min/{1.73_m2} Normal [facility] Comment on above: Order Comment: Shira feldman Type: BLOOD SPECIMENOrdering Facility: [facility] Address: [address] [place] [address] Result Comment: >60e GFR (Estimated GFR) Units [...] GFR. Performed By: #### 2 4321-2 ####[facility] [id number] [place] [address] [place] Glucose [Mass/Vol] 110 mg/dL High 74-99 [facility] Comment on above: Order Comment: Shira feldman Type: BLOOD SPECIMENOrdering Facility: [facility] Address: [address] [place] [address] Result Comment: The [place] [employer] (ADA) provides guidance for cutoff [...] Standards of Medical Care in Diabetes 2016, [place] [employer]. Diabetes Care. 2016.39(Suppl 1). Performed By: #### 2 4321-2 ####[facility]ATORYCLIA [id number] [address] [place] Potassium [Moles/Vol] 3.7 mmol/L Normal 3.7-5.1 [facility] Comment on above: Order Comment: Speci men Type: BLOOD SPECIMENOrdering Facility: [facility] Address: [address] [place] [address] Performed By: #### 2 4321-2 ####[facility]ORATORYCLIA [id number] [address] [place] Sodium [Moles/Vol] 142 mmol/L Normal 136-144 [facility] Comment on above: Order Comment: Speci men Type: BLOOD SPECIMENOrdering Facility: [facility] Address: [address] [place] [address] Performed By: #### 2 4321-2 ####[facility]ORATORYCLIA [id number] [address] STATES [facility] Urea nitrogen [Mass/Vol] 26 mg/dL High 9-24 [facility] Comment on above: Order Comment: Speci men Type: BLOOD SPECIMENOrdering Facility: [facility] Address: [address] [place] [address] Performed By: #### 2 4321-2 ####[facility]ORATORYCLIA [id number] [address] STATES OF [facility] CBC panel Auto (Bld)on 06-19 Erythrocyte distribution width (RBC) [Ratio] 15.7 % High 11.5-15.0 [facility] Comment on above: Order Comment: Speci men Type: BLOOD SPECIMENOrdering Facility: [facility] Address: [address] [place] [address] Performed By: #### 5 8410-2 ####[facility]ORATORYCLIA [id number] [address] Hematocrit (Bld) [Volume fraction] 30.9 % Low 39.0-51.0 [facility] Comment on above: Order Comment: Speci men Type: BLOOD SPECIMENOrdering Facility: [facility] Address: [address] [place] [address] Performed By: #### 5 8410-2 ####[facility]ORATORYCLIA [id number] [address] OF [facility] Hemoglobin (Bld) [Mass/Vol] 9.5 g/dL Low 13.0-17.0 [facility] Comment on above: Order Comment: Speci men Type: BLOOD SPECIMENOrdering Facility: [facility] Address: [address] [place] [address] Performed By: #### 5 8410-2 ####[facility]ORATORYCLIA [id number] [address] MCH (RBC) [Entitic mass] 28.4 pg Normal 26.0-34.0 [facility] Comment on above: Order Comment: Speci men Type: BLOOD SPECIMENOrdering Facility: [facility] Address: [address] [place] [address] Performed By: #### 5 8410-2 ####[facility]ATORYCLIA [id number] [address] STATES OF [facility] MCHC (RBC) [Mass/Vol] 30.7 g/dL Normal 30.5-36.0 [facility] Comment on above: Order Comment: Speci men Type: BLOOD SPECIMENOrdering Facility: [facility] Address: [address] [place] [address] Performed By: #### 5 8410-2 ####[facility]ORATORYCLIA [id number] [address] STATES [facility] MCV (RBC) [Entitic vol] 92.2 fL Normal 80.0-100.0 [facility] Comment on above: Order Comment: Speci men Type: BLOOD SPECIMENOrdering Facility: [facility] Address: [address] [place] [address] Performed By: #### 5 8410-2 ####[facility]ORATORYCLIA [id number] [address] Nucleated RBC (Bld) [#/Vol] 10*3/uL Normal <0.01 [facility] Comment on above: Order Comment: Speci men Type: BLOOD SPECIMENOrdering Facility: [facility] Address: [address] [place] [address] Performed By: #### 5 8410-2 ####[facility]ORATORYCLIA [id number] [place] [address] [place] Platelet mean volume (Bld) [Entitic vol] 11.7 fL Normal 9.0-12.7 [facility] Comment on above: Order Comment: Speci men Type: BLOOD SPECIMENOrdering Facility: [facility] Address: [address] [place] [address] Performed By: #### 5 8410-2 ####[facility]ORATORYCLIA [id number] [address] [place] Platelets (Bld) [#/Vol] 323 10*3/uL Normal 150-400 [facility] Comment on above: Order Comment: Speci men Type: BLOOD SPECIMENOrdering Facility: [facility] Address: [address] [place] [address] Performed By: #### 5 8410-2 ####[facility]ORATORYCLIA [id number] [place] [address] [place] RBC (Bld) [#/Vol] 3.35 10*6/uL Low 4.20-6.00 [facility] Comment on above: Order Comment: Speci men Type: BLOOD SPECIMENOrdering Facility: [facility] Address: [address] [place], [place] [address] Performed By: #### 5 8410-2 ####[facility]ORATORYCLIA [id number] [address] [place] WBC (Bld) [#/Vol] 9.53 10*3/uL Normal 3.70-11.00 [facility] Comment on above: Order Comment: Speci men Type: BLOOD SPECIMENOrdering Facility: [facility] Address: [address] [place] [address] Performed By: #### 5 8410-2 ####[facility]ORATORYCLIA [id number] [address] HEMOGLOBIN (HGB)on Hemoglobin (Bld) [Mass/Vol] 9.7 g/dL Low 13.0-17.0 [facility] Comment on above: Order Comment: Speci men Type: BLOOD SPECIMENOrdering Facility: [facility] Address: [address] [place] [address] Performed By: #### H GB ####[facility]ORATORYCLIA [id number] [address] Magnesium SerPl-mCncon 06-19 Magnesium [Mass/Vol] 2.5 mg/dL High 1.7-2.3 [facility] Comment on above: Order Comment: Speci men Type: BLOOD SPECIMENOrdering Facility: [facility] Address: [address] [place] [address] Performed By: #### 1 9123-9, 2777-1 ####[facility]ORATORYCLIA [id number] [address] NURSING PROGon 06-19-[address] [facility] Phosphate SerPl-mCncon 06-19 Phosphate [Mass/Vol] 2.6 mg/dL Low 2.7-4.8 [facility] Comment on above: Order Comment: Speci men Type: BLOOD SPECIMENOrdering Facility: [facility] Address: [address] [place] [address] Performed By: #### 1 9123-9, 2777-1 ####[facility]ORATORYCLIA [id number] [address] aPTT PPPon 06-19-2021 aPTT Coag (PPP) [Time] 61.9 s High 23.0-32.4 [facility] Comment on above: Order Comment: Speci men Type: BLOOD SPECIMENOrdering Facility: [facility] Address: [address] [address] Performed By: #### 1 4979-9 ####[facility]ORATORYCLIA [id number] [address] aPTT Coag (PPP) [Time] 68.6 s High 23.0-32.4 [facility] Comment on above: Order Comment: Speci men Type: BLOOD SPECIMENOrdering Facility: [facility] Address: [address] [place] [address] Performed By: #### 1 4979-9 ####[facility]ORATORYCLIA [id number] [address] STATES OF [facility] aPTT Coag (PPP) [Time] 83.2 s High 23.0-32.4 [facility] Comment on above: Order Comment: Speci men Type: BLOOD SPECIMENOrdering Facility: [facility] Address: [address] [place] [address] Performed By: #### 1 4979-9 ####[facility]ORATORYCLIA [id number] [place] [address] [place] Basic metabolic 2000 panelon 06-18-2021 Anion gap [Moles/Vol] 7 mmol/L Low 9-18 [facility] Comment on above: Order Comment: Speci men Type: BLOOD SPECIMENOrdering Facility: [facility] Address: [address] [place] [address] Performed By: #### 2 4321-2, , 2776-05 ####[facility]ORATORYCLIA [id number] [address] [place] Calcium [Mass/Vol] 8.2 mg/dL Low 8.5-10.2 [facility] Comment on above: Order Comment: Speci men Type: BLOOD SPECIMENOrdering Facility: [facility] Address: [address] [place] [address] Performed By: #### 2 4321-2, , 27711-04 ####[facility]ORATORYCLIA [id number] [place] [address] [place] Chloride [Moles/Vol] 115 mmol/L High 97-105 [facility] Comment on above: Order Comment: Speci men Type: BLOOD SPECIMENOrdering Facility: [facility] Address: [address] [place] [address] Performed By: #### 2 4321-2, 49100-1, 2776- ####[facility]ATORYCLIA [id number] [address] [place] CO2 [Moles/Vol] 23 mmol/L Normal 22-30 [facility] Comment on above: Order Comment: Speci men Type: BLOOD SPECIMENOrdering Facility: [facility] Address: [address] [place] [address] Performed By: #### 2 4321-2, , 2776-05 ####[facility]ITALIA [id number] [address] [place] Creatinine [Mass/Vol] 0.70 mg/dL Low 0.73-1.22 [facility] Comment on above: Order Comment: Speci men Type: BLOOD SPECIMENOrdering Facility: [facility] Address: [address] [place] [address] Performed By: #### 2 4321-2, , 2776-05 ####[facility]ATORYCLIA [id number] [place] [address] [place] GFR/1.73 sq M.predicted MDRD (S/P/Bld) [Vol rate/Area] mL/min/{1.73_m2} Normal [facility] Comment on above: Order Comment: Speci men Type: BLOOD SPECIMENOrdering Facility: [facility] Address: [address] [place] [address] Result Comment: >60e GFR (Estimated GFR) Units [...] By: #### 2 4321-2, , 2776-05 ####[facility]ORATORYCLIA [id number] [place] [address] [place] Glucose [Mass/Vol] 105 mg/dL High 74-99 [facility] Comment on above: Order Comment: Shira feldman Type: BLOOD SPECIMENOrdering Facility: [facility] Address: [address] [place], [place] [address] Result Comment: The [place] [employer] (ADA) provides guidance for cutoff [...] Standards of Medical Care in Diabetes 2016, [place] [employer]. Diabetes Care. 2016.39(Suppl 1). Performed By: #### 2 4321-2, , 2776-05 ####[facility]ORATORYCLIA [id number] [place] [address] [place] Potassium [Moles/Vol] 4.1 mmol/L Normal 3.7-5.1 [facility] Comment on above: Order Comment: Shira feldman Type: BLOOD SPECIMENOrdering Facility: [facility] Address: [address] [place] [address] Performed By: #### 2 4321-2, , 2776-05 ####[facility]ORATORYCLIA [id number] [place] [address] [place] Sodium [Moles/Vol] 145 mmol/L High 136-144 [facility] Comment on above: Order Comment: Speci men Type: BLOOD SPECIMENOrdering Facility: [facility] Address: [address] [place] [address] Performed By: #### 2 4321-2, 70651-8, 2776- ####[facility]ORATORYCLIA [id number] [address] [place] Urea nitrogen [Mass/Vol] 27 mg/dL High 9-24 [facility] Comment on above: Order Comment: Speci men Type: BLOOD SPECIMENOrdering Facility: [facility] Address: [address] [place] [address] Performed By: #### 2 4321-2, , 2776-05 ####[facility]ATORYCLIA [id number] [address] STATES OF [facility] CALCIUM IONIZED Bon 06-18-19 Calcium.ionized (BldV) [Mass/Vol] 1.22 mmol/L Normal 1.08-1.30 [facility] Comment on above: Order Comment: Speci men Type: BLOOD SPECIMENOrdering Facility: [facility] Address: [address] [place] [address] Performed By: #### I [place] ####[facility]ORATORYCLIA [id number] [address] Calcium.ionized adjusted to pH 7.4 (Bld) [Moles/Vol] 1.23 mmol/L Normal 1.08-1.30 [facility] Comment on above: Order Comment: Speci men Type: BLOOD SPECIMENOrdering Facility: [facility] Address: [address] [place] [address] Performed By: #### I [place] ####[facility]ATORYCLIA [id number] [address] [place] CBC panel Auto (Bld)on 06-18 Erythrocyte distribution width (RBC) [Ratio] 15.8 % High 11.5-15.0 [facility] Comment on above: Order Comment: Speci men Type: BLOOD SPECIMENOrdering Facility: [facility] Address: [address] [place] [address] Performed By: #### 5 8410-2 ####[facility]ORATORYCLIA [id number] [address] Hematocrit (Bld) [Volume fraction] 29.5 % Low 39.0-51.0 [facility] Comment on above: Order Comment: Speci men Type: BLOOD SPECIMENOrdering Facility: [facility] Address: [address] [place] [address] Performed By: #### 5 8410-2 ####[facility]ATORYCLIA [id number] [address] Hemoglobin (Bld) [Mass/Vol] 8.8 g/dL Low 13.0-17.0 [facility] Comment on above: Order Comment: Speci men Type: BLOOD SPECIMENOrdering Facility: [facility] Address: [address] [place] [address] Performed By: #### 5 8410-2 ####[facility]ATORYCLIA [id number] [address] MCH (RBC) [Entitic mass] 27.4 pg Normal 26.0-34.0 [facility] Comment on above: Order Comment: Speci men Type: BLOOD SPECIMENOrdering Facility: [facility] Address: [address] [place] [address] Performed By: #### 5 8410-2 ####[facility]ATORYCLIA [id number] [address] [place] MCHC (RBC) [Mass/Vol] 29.8 g/dL Low 30.5-36.0 [facility] Comment on above: Order Comment: Speci men Type: BLOOD SPECIMENOrdering Facility: [facility] Address: [address] [place] [address] Performed By: #### 5 8410-2 ####[facility]ATORYCLIA [id number] [address] STATES OF [facility] MCV (RBC) [Entitic vol] 91.9 fL Normal 80.0-100.0 [facility] Comment on above: Order Comment: Speci men Type: BLOOD SPECIMENOrdering Facility: [facility] Address: [address] [place] [address] Performed By: #### 5 8410-2 ####[facility]ATORYCLIA [id number] [address] Nucleated RBC (Bld) [#/Vol] 10*3/uL Normal <0.01 [facility] Comment on above: Order Comment: Speci men Type: BLOOD SPECIMENOrdering Facility: [facility] Address: [address] [place] [address] Performed By: #### 5 8410-2 ####[facility]ATORYCLIA [id number] [address] Platelet mean volume (Bld) [Entitic vol] 11.9 fL Normal 9.0-12.7 [facility] Comment on above: Order Comment: Speci men Type: BLOOD SPECIMENOrdering Facility: [facility] Address: [address] [place] [address] Performed By: #### 5 8410-2 ####[facility]ATORYCLIA [id number] [address] Platelets (Bld) [#/Vol] 291 10*3/uL Normal 150-400 [facility] Comment on above: Order Comment: Speci men Type: BLOOD SPECIMENOrdering Facility: [facility] Address: [address] [place] [address] Performed By: #### 5 8410-2 ####[facility]ATORYCLIA [id number] [address] [place] RBC (Bld) [#/Vol] 3.21 10*6/uL Low 4.20-6.00 [facility] Comment on above: Order Comment: Speci men Type: BLOOD SPECIMENOrdering Facility: [facility] Address: [address] [place] [address] Performed By: #### 5 8410-2 ####[facility]ATORYCLIA [id number] [address] WBC (Bld) [#/Vol] 10.19 10*3/uL Normal 3.70-11.00 [facility] Comment on above: Order Comment: Speci men Type: BLOOD SPECIMENOrdering Facility: [facility] Address: [address] [place] [address] Performed By: #### 5 8410-2 ####[facility]ATORYCLIA [id number] [address] FERRITIN BLDon 06-18-2021 Ferritin [Mass/Vol] 600.9 ng/mL High 30.3-565.7 [facility] Comment on above: Order Comment: Speci men Type: BLOOD SPECIMENOrdering Facility: [facility] Address: [address] [place] [address] Performed By: #### S ERFOL, IRON, FERR ####[facility]ORATORYCLIA [id number] [address] FOLATE SERUMon 06-18-2021 Folate [Mass/Vol] 14.3 ng/mL Normal >4.7 [facility] Comment on above: Order Comment: Speci men Type: BLOOD SPECIMENOrdering Facility: [facility] Address: [address] [place] [address] Performed By: #### S ERFOL, IRON, FERR ####[facility]ATORYCLIA [id number] [address] Gas and Carbon monoxide pane l (BldV)on 06-18-2021 Base excess Calc (BldV) [Moles/Vol] 0.5 mmol/L Normal 0-2 [facility] Comment on above: Order Comment: Speci men Type: VENOUS BLOOD SPECIMENOrdering Facility: [facility] Address: [address] [place] [address] Performed By: #### 2 4344-4 ####[facility]ORATORYCLIA [id number] [address] Body temperature 97.34 [degF] Normal [facility] Comment on above: Order Comment: Speci men Type: VENOUS BLOOD SPECIMENOrdering Facility: [facility] Address: [address] [place] [address] Performed By: #### 2 4344-4 ####[facility]ATORYCLIA [id number] [address] CALCIUM IONIZED, PH CORRECTED 1.26 mmol/L Normal 1.08-1.30 [facility] Comment on above: Order Comment: Speci men Type: VENOUS BLOOD SPECIMENOrdering Facility: [facility] Address: [address] [place] [address] Performed By: #### 2 4344-4 ####[facility]ATORYCLIA [id number] [address] Calcium.ionized (BldV) [Mass/Vol] 1.25 mmol/L Normal 1.08-1.30 [facility] Comment on above: Order Comment: Speci men Type: VENOUS BLOOD SPECIMENOrdering Facility: [facility] Address: [address] [place] [address] Performed By: #### 2 4344-4 ####[facility]ATORYCLIA [id number] [address] OF [facility] Carboxyhemoglobin (BldV) [Mass fraction] 1.5 % Normal 0.0-2.0 [facility] Comment on above: Order Comment: Speci men Type: VENOUS BLOOD SPECIMENOrdering Facility: [facility] Address: [address] [place] [address] Result Comment: Carb oxyhemoglobin Reference Range for Smokers: 2.0-8.0% Performed By: #### 2 4344-4 ####[facility]ORATORYCLIA [id number] [place] [address] [place] CO2 (BldV) [Partial pressure] 38 mm[Hg] Low 42-55 [facility] Comment on above: Order Comment: Speci men Type: VENOUS BLOOD SPECIMENOrdering Facility: [facility] Address: [address] [place] [address] Performed By: #### 2 4344-4 ####[facility] LABORATORYCLIA [id number] [place] [address] [place] CO2 [Moles/Vol] 22.9 mmol/L Low 25-29 [facility] Comment on above: Order Comment: Speci men Type: VENOUS BLOOD SPECIMENOrdering Facility: [facility] Address: [address] [place] [address] Performed By: #### 2 4344-4 ####[facility]ATORYCLIA [id number] [address] [place] CO2 adjusted to patient's actual temperature (BldV) [Partial pressure] 37 mmHg Low 42-55 [facility] Comment on above: Order Comment: Speci men Type: VENOUS BLOOD SPECIMENOrdering Facility: [facility] Address: [address] [place] [address] Performed By: #### 2 4344-4 ####[facility]ATORYCLIA [id number] [place] [address] [place] Glucose [Mass/Vol] 103 mg/dL Normal 60-105 [facility] Comment on above: Order Comment: Speci men Type: VENOUS BLOOD SPECIMENOrdering Facility: [facility] Address: [address] [place] [address] Performed By: #### 2 4344-4 ####[facility]ATORYCLIA [id number] [place] [address] [place] HCO3 (Bld) [Moles/Vol] 24.4 mmol/L Normal 24-28 [facility] Comment on above: Order Comment: Speci men Type: VENOUS BLOOD SPECIMENOrdering Facility: [facility] Address: [address] [place] [address] Performed By: #### 2 4344-4 ####[facility]ORATORYCL[facility] [id number] [address] [place] Hematocrit (Bld) [Volume fraction] 28.7 % Low 39.0-51.0 [facility] Comment on above: Order Comment: Speci men Type: VENOUS BLOOD SPECIMENOrdering Facility: [facility] Address: [address] [place] [address] Performed By: #### 2 4344-4 ####[facility]ORATORYCLIA [id number] [address] [place] Hemoglobin (Bld) [Mass/Vol] 9.3 g/dL Low 13.0-17.0 [facility] Comment on above: Order Comment: Speci men Type: VENOUS BLOOD SPECIMENOrdering Facility: [facility] Address: [address] [place] [address] Performed By: #### 2 4344-4 ####[facility]ORATORYCLIA [id number] [address] Methemoglobin (Bld) [Mass fraction] % Normal 0.0-1.5 [facility] Comment on above: Order Comment: Speci men Type: VENOUS BLOOD SPECIMENOrdering Facility: [facility] Address: [address] [place] [address] Performed By: #### 2 4344-4 ####[facility]ATORYCLIA [id number] [address] [place] O2 THERAPY Ventilator Normal [facility] Comment on above: Order Comment: Speci men Type: VENOUS BLOOD SPECIMENOrdering Facility: [facility] Address: [address] [place] [address] Performed By: #### 2 4344-4 ####[facility]ATORYCLIA [id number] [address] Oxygen (BldV) [Partial pressure] 37 mm[Hg] Normal 35-45 [facility] Comment on above: Order Comment: Speci men Type: VENOUS BLOOD SPECIMENOrdering Facility: [facility] Address: [address] [address] Performed By: #### 2 4344-4 ####[facility]ATORYCLIA [id number] [address] OF [facility] Oxygen adjusted to patient's actual temperature (BldV) [Partial pressure] 35.1 mmHg Normal 35-45 [facility] Comment on above: Order Comment: Speci men Type: VENOUS BLOOD SPECIMENOrdering Facility: [facility] Address: [address] [place] [address] Performed By: #### 2 4344-4 ####[facility]ORATORYCLIA [id number] [address] Oxygen saturation in Blood 67.1 % Normal 60-85 [facility] Comment on above: Order Comment: Speci men Type: VENOUS BLOOD SPECIMENOrdering Facility: [facility] Address: [address] [place] [address] Performed By: #### 2 4344-4 ####[facility]ORYCLIA [id number] [address] Oxyhemoglobin (BldV) [Mass fraction] 66 % Normal 60-85 [facility] Comment on above: Order Comment: Speci men Type: VENOUS BLOOD SPECIMENOrdering Facility: [facility] Address: [address] [place] [address] Performed By: #### 2 4344-4 ####[facility]ATORYCLIA [id number] [address] [place] pH (BldV) 7.42 [pH] Normal 7.32-7.42 [facility] Comment on above: Order Comment: Speci men Type: VENOUS BLOOD SPECIMENOrdering Facility: [facility] Address: [address] [place] [address] Performed By: #### 2 4344-4 ####[facility]ORATORYCLIA [id number] [address] [place] pH adjusted to patient's actual temperature (BldV) 7.43 High 7.32-7.42 [facility] Comment on above: Order Comment: Speci men Type: VENOUS BLOOD SPECIMENOrdering Facility: [facility] Address: [address] [place] [address] Performed By: #### 2 4344-4 ####[facility]ORYCLIA [id number] [address] [place] Potassium [Moles/Vol] 4.0 mmol/L Normal 3.5-5.0 [facility] Comment on above: Order Comment: Speci men Type: VENOUS BLOOD SPECIMENOrdering Facility: [facility] Address: [address] [place] [address] Performed By: #### 2 4344-4 ####[facility]ATORYCLIA [id number] [address] STATES OF [facility] Sodium [Moles/Vol] 146 mmol/L High 136-144 [facility] Comment on above: Order Comment: Speci men Type: VENOUS BLOOD SPECIMENOrdering Facility: [facility] Address: [address] [place] [address] Performed By: #### 2 4344-4 ####[facility]ORYCLIA [id number] [address] [place] HEMOGLOBIN (HGB)on Hemoglobin (Bld) [Mass/Vol] 9.2 g/dL Low 13.0-17.0 [facility] Comment on above: Order Comment: Speci men Type: BLOOD SPECIMENOrdering Facility: [facility] Address: [address] [place] [address] Performed By: #### H GB ####[facility]ATORYCLIA [id number] [address] [place] IRON + TIBCon 06-18-2021 Iron [Mass/Vol] 27 ug/dL Low 41-186 [facility] Comment on above: Order Comment: Speci men Type: BLOOD SPECIMENOrdering Facility: [facility] Address: [address] [place] [address] Performed By: #### S ERFOL, IRON, FERR ####[facility]ATORYCLIA [id number] [address] Iron binding capacity [Mass/Vol] 141 ug/dL Low 232-386 [facility] Comment on above: Order Comment: Speci men Type: BLOOD SPECIMENOrdering Facility: [facility] Address: [address] [place] [address] Performed By: #### S ERFOL, IRON, FERR ####[facility]ATORYCLIA [id number] [address] Iron saturation [Mass fraction] 19 % Normal 15-57 [facility] Comment on above: Order Comment: Speci men Type: BLOOD SPECIMENOrdering Facility: [facility] Address: [address] [place] [address] Performed By: #### S ERFOL, IRON, FERR ####[facility]ATORYCLIA [id number] [address] Magnesium SerPl-mCncon 06-18 Magnesium [Mass/Vol] 2.5 mg/dL High 1.7-2.3 [facility] Comment on above: Order Comment: Speci men Type: BLOOD SPECIMENOrdering Facility: [facility] Address: [address] [place] [address] Performed By: #### 2 4321-2, , 2776-05 ####[facility]ATORYCLIA [id number] [address] [place] NURSING PROGon 06-18-[address] [facility] Phosphate SerPl-mCncon 06-18 Phosphate [Mass/Vol] 3.0 mg/dL Normal 2.7-4.8 [facility] Comment on above: Order Comment: Speci men Type: BLOOD SPECIMENOrdering Facility: [facility] Address: [address] [place] [address] Performed By: #### 2 4321-2, , 2776-05 ####[facility]ATORYCLIA [id number] [address] [place] THERAPY NTon 06-18-[address] [facility] aPTT PPPon 06-18-2021 aPTT Coag (PPP) [Time] 43.0 s High 23.0-32.4 [facility] Comment on above: Order Comment: Speci men Type: BLOOD SPECIMENOrdering Facility: [facility] Address: [address] [place] [address] Performed By: #### 1 4979-9 ####[facility]ATORYCLIA [id number] [address] aPTT Coag (PPP) [Time] 60.6 s High 23.0-32.4 [facility] Comment on above: Order Comment: Speci men Type: BLOOD SPECIMENOrdering Facility: [facility] Address: [address] [place] [address] Performed By: #### 1 4979-9 ####[facility]CL[facility] [id number] [address] aPTT Coag (PPP) [Time] 46.4 s High 23.0-32.4 [facility] Comment on above: Order Comment: Speci men Type: BLOOD SPECIMENOrdering Facility: [facility] Address: [address] [place] [address] Performed By: #### 1 4979-9 ####[facility]ATORYCLIA [id number] [address] OF [facility] Basic metabolic 2000 panelon 06-17-2021 Anion gap [Moles/Vol] 7 mmol/L Low 9-18 [facility] Comment on above: Order Comment: Speci men Type: BLOOD SPECIMENOrdering Facility: [facility] Address: [address] [place] [address] Performed By: #### 2 951-2, 52016-0, 2777-1, 61942-1 ####[facility]ATORYCLIA [id number] [place] [address] [place] Calcium [Mass/Vol] 8.1 mg/dL Low 8.5-10.2 [facility] Comment on above: Order Comment: Speci men Type: BLOOD SPECIMENOrdering Facility: [facility] Address: [address] [place] [address] Performed By: #### 2 951-2, 93472-4, 2776-1, 02607-5 ####[facility]ATORYCLIA [id number] [place] [address] [place] Chloride [Moles/Vol] 113 mmol/L High 97-105 [facility] Comment on above: Order Comment: Speci men Type: BLOOD SPECIMENOrdering Facility: [facility] Address: [address] [place] [address] Performed By: #### 2 951-2, , 2776-05, 63969-6 ####[facility]ATORYCLIA [id number] [place] [address] [place] CO2 [Moles/Vol] 25 mmol/L Normal 22-30 [facility] Comment on above: Order Comment: Speci men Type: BLOOD SPECIMENOrdering Facility: [facility] Address: [address] [place] [address] Performed By: #### 2 951-2, , 2776-05, 32013-8 ####[facility]ATORYCLIA [id number] [place] [address] [place] Creatinine [Mass/Vol] 0.70 mg/dL Low 0.73-1.22 [facility] Comment on above: Order Comment: Speci men Type: BLOOD SPECIMENOrdering Facility: [facility] Address: [address] [place] [address] Performed By: #### 2 951-2, , 2776-05, 80535-9 ####[facility]ORYCLIA [id number] [place] [address] [place] GFR/1.73 sq M.predicted MDRD (S/P/Bld) [Vol rate/Area] mL/min/{1.73_m2} Normal [facility] Comment on above: Order Comment: Shira feldman Type: BLOOD SPECIMENOrdering Facility: [facility] Address: [address] [place], [place] [address] Result Comment: >60e GFR (Estimated GFR) Units [...] actual GFR. Performed By: #### 2 951-2, 61106-3, 2777-1, 02653-3 ####[facility]ATORYCLIA [id number] [place] [address] [place] Glucose [Mass/Vol] 122 mg/dL High 74-99 [facility] Comment on above: Order Comment: Shira feldman Type: BLOOD SPECIMENOrdering Facility: [facility] Address: [address] [place], [place] [address] Result Comment: The [place] [employer] (ADA) provides guidance for cutoff [...] Standards of Medical Care in Diabetes 2016, [place] [employer]. Diabetes Care. 2016.39(Suppl 1). Performed By: #### 2 951-2, 94890-8, 2777-1, 57770-9 ####[facility]ATORYCLIA [id number] [address] STATES OF [facility] Potassium [Moles/Vol] 3.5 mmol/L Low 3.7-5.1 [facility] Comment on above: Order Comment: Speci men Type: BLOOD SPECIMENOrdering Facility: [facility] Address: [address] [place] [address] Performed By: #### 2 951-2, 19577-3, 2777-1, 91409-9 ####[facility]ATORYCLIA [id number] [address] [place] Urea nitrogen [Mass/Vol] 27 mg/dL High 9- [facility] Comment on above: Order Comment: Speci men Type: BLOOD SPECIMENOrdering Facility: [facility] Address: [address] [place] [address] Performed By: #### 2 951-2, 17988-5, 2777-1, 21413-6 ####[facility]CL[facility] [id number] [address] OF [facility] CASE MANAGEMon 06-17-[address] [facility] CBC panel Auto (Bld)on 06-17 Erythrocyte distribution width (RBC) [Ratio] 15.9 % High 11.5-15.0 [facility] Comment on above: Order Comment: Speci men Type: BLOOD SPECIMENOrdering Facility: [facility] Address: [address] [place] [address] Performed By: #### 5 8410-2 ####[facility]ATORYCLIA [id number] [address] Hematocrit (Bld) [Volume fraction] 28.9 % Low 39.0-51.0 [facility] Comment on above: Order Comment: Speci men Type: BLOOD SPECIMENOrdering Facility: [facility] Address: [address] [place] [address] Performed By: #### 5 8410-2 ####[facility]ORYCLIA [id number] [address] Hemoglobin (Bld) [Mass/Vol] 8.8 g/dL Low 13.0-17.0 [facility] Comment on above: Order Comment: Speci men Type: BLOOD SPECIMENOrdering Facility: [facility] Address: [address] [place] [address] Performed By: #### 5 8410-2 ####[facility]ATORYCLIA [id number] [address] MCH (RBC) [Entitic mass] 28.4 pg Normal 26.0-34.0 [facility] Comment on above: Order Comment: Speci men Type: BLOOD SPECIMENOrdering Facility: [facility] Address: [address] [place] [address] Performed By: #### 5 8410-2 ####[facility]ORYCLIA [id number] [address] MCHC (RBC) [Mass/Vol] 30.4 g/dL Low 30.5-36.0 [facility] Comment on above: Order Comment: Speci men Type: BLOOD SPECIMENOrdering Facility: [facility] Address: [address] [place] [address] Performed By: #### 5 8410-2 ####[facility]ORYCLIA [id number] [address] MCV (RBC) [Entitic vol] 93.2 fL Normal 80.0-100.0 [facility] Comment on above: Order Comment: Speci men Type: BLOOD SPECIMENOrdering Facility: [facility] Address: [address] [place] [address] Performed By: #### 5 8410-2 ####[facility]ORYCLIA [id number] [address] Nucleated RBC (Bld) [#/Vol] 10*3/uL Normal <0.01 [facility] Comment on above: Order Comment: Speci men Type: BLOOD SPECIMENOrdering Facility: [facility] Address: [address] Performed By: #### 5 8410-2 ####[facility]ATORYCLIA [id number] [address] Platelet mean volume (Bld) [Entitic vol] 11.9 fL Normal 9.0-12.7 [facility] Comment on above: Order Comment: Speci men Type: BLOOD SPECIMENOrdering Facility: [facility] Address: [address] [place] [address] Performed By: #### 5 8410-2 ####[facility]ORYCLIA [id number] [address] OF [facility] Platelets (Bld) [#/Vol] 257 10*3/uL Normal 150-400 [facility] Comment on above: Order Comment: Speci men Type: BLOOD SPECIMENOrdering Facility: [facility] Address: [address] [place] [address] Performed By: #### 5 8410-2 ####[facility]ATORYCLIA [id number] [address] [place] RBC (Bld) [#/Vol] 3.10 10*6/uL Low 4.20-6.00 [facility] Comment on above: Order Comment: Speci men Type: BLOOD SPECIMENOrdering Facility: [facility] Address: [address] [place] [address] Performed By: #### 5 8410-2 ####[facility]ORYCLIA [id number] [address] [place] WBC (Bld) [#/Vol] 10.54 10*3/uL Normal 3.70-11.00 [facility] Comment on above: Order Comment: Speci men Type: BLOOD SPECIMENOrdering Facility: [facility] Address: [address] [place] [address] Performed By: #### 5 8410-2 ####[facility]ORYCLIA [id number] [address] HEMOGLOBIN (HGB)on Hemoglobin (Bld) [Mass/Vol] 8.8 g/dL Low 13.0-17.0 [facility] Comment on above: Order Comment: Speci men Type: BLOOD SPECIMENOrdering Facility: [facility] Address: [address] [place] [address] Performed By: #### H GB ####[facility]ORYCLIA [id number] [address] OF [facility] Magnesium SerPl-mCncon 06-17 Magnesium [Mass/Vol] 2.5 mg/dL High 1.7-2.3 [facility] Comment on above: Order Comment: Speci men Type: BLOOD SPECIMENOrdering Facility: [facility] Address: [address] [place] [address] Performed By: #### 2 951-2, 69219-1, 2777-1, 13235-4 ####[facility]ORYCLIA [id number] [address] NURSING PROGon 06-17-[address] [facility] NURSING PROG Normal [facility] NURSING PROG Normal [facility] Phosphate SerPl-mCncon 06-17 Phosphate [Mass/Vol] 1.9 mg/dL Low 2.7-4.8 [facility] Comment on above: Order Comment: Speci men Type: BLOOD SPECIMENOrdering Facility: [facility] Address: [address] [place] [address] Performed By: #### 2 951-2, 00159-8, 2777-1, 07257-3 ####[facility]ORYCLIA [id number] [address] OF [facility] Sodium SerPl-sCncon 06-17-19 22 Sodium [Moles/Vol] 144 mmol/L Normal 136-144 [facility] Comment on above: Order Comment: Speci men Type: BLOOD SPECIMENOrdering Facility: [facility] Address: [address] [place] [address] Performed By: #### 2 951-2 ####[facility]ORYCLIA [id number] [address] STATES OF [facility] Sodium [Moles/Vol] 145 mmol/L High 136-144 [facility] Comment on above: Order Comment: Speci men Type: BLOOD SPECIMENOrdering Facility: [facility] Address: [address] [place] [address] Performed By: #### 2 951-2, 54052-1, 2777-1, 97680-8 ####[facility]ORYCLIA [id number] [place] [address] [place] aPTT PPPon 06-17-2021 aPTT Coag (PPP) [Time] 55.8 s High 23.0-32.4 [facility] Comment on above: Order Comment: Speci men Type: BLOOD SPECIMENOrdering Facility: [facility] Address: [address] [place] [address] Performed By: #### 1 4979-9 ####[facility]ORYCLIA [id number] [address] [place] ARTERIAL BLOOD GASESon 06-16 Base excess Calc (Bld) [Moles/Vol] 3 mmol/L High 0-2 [facility] Comment on above: Order Comment: Speci men Type: ARTERIAL BLOOD SPECIMENOrdering Facility: [facility] Address: [address] [place] [address] Performed By: #### A LLBG ####[facility]ATORYCLIA [id number] [address] [place] Body temperature 99.14 [degF] Normal [facility] Comment on above: Order Comment: Speci men Type: ARTERIAL BLOOD SPECIMENOrdering Facility: [facility] Address: [address] [place] [address] Performed By: #### A LLBG ####[facility]ORYCLIA [id number] [address] [place] CALCIUM IONIZED, PH CORRECTED 1.21 mmol/L Normal 1.08-1.30 [facility] Comment on above: Order Comment: Speci men Type: ARTERIAL BLOOD SPECIMENOrdering Facility: [facility] Address: [address] [place] [address] Performed By: #### A LLBG ####[facility]ORYCLIA [id number] [place] [address] [place] Calcium.ionized (BldV) [Mass/Vol] 1.17 mmol/L Normal 1.08-1.30 [facility] Comment on above: Order Comment: Speci men Type: ARTERIAL BLOOD SPECIMENOrdering Facility: [facility] Address: [address] [place] [address] Performed By: #### A LLBG ####[facility]ORYCLIA [id number] [address] [place] Carboxyhemoglobin (BldA) [Mass fraction] 1.4 % Normal 0.0-2.0 [facility] Comment on above: Order Comment: Speci men Type: ARTERIAL BLOOD SPECIMENOrdering Facility: [facility] Address: [address] [place] [address] Result Comment: Carb oxyhemoglobin Reference Range for Smokers: 2.0-8.0% Performed By: #### A LLBG ####[facility]ORYCLIA [id number] [place] [address] [place] CO2 (Bld) [Partial pressure] 38 mm Hg Normal 36-46 [facility] Comment on above: Order Comment: Speci men Type: ARTERIAL BLOOD SPECIMENOrdering Facility: [facility] Address: [address] [place] [address] Performed By: #### A LLBG ####[facility]ORYCLIA [id number] [place] [address] [place] CO2 [Moles/Vol] 24.5 mmol/L Normal 22-28 [facility] Comment on above: Order Comment: Speci men Type: ARTERIAL BLOOD SPECIMENOrdering Facility: [facility] Address: [address] [place] [address] Performed By: #### A LLBG ####[facility]ORYCLIA [id number] [address] CO2 adjusted to patient's actual temperature (Bld) [Partial pressure] 38 mmHg Normal 36-46 [facility] Comment on above: Order Comment: Speci men Type: ARTERIAL BLOOD SPECIMENOrdering Facility: [facility] Address: [address] [place] [address] Performed By: #### A LLBG ####[facility]ORYCLIA [id number] [address] [place] Glucose [Mass/Vol] 147 mg/dL High 60-105 [facility] Comment on above: Order Comment: Speci men Type: ARTERIAL BLOOD SPECIMENOrdering Facility: [facility] Address: [address] [place] [address] Performed By: #### A LLBG ####[facility]ORYCLIA [id number] [address] HCO3 (Bld) [Moles/Vol] 27 mmol/L High 22-26 [facility] Comment on above: Order Comment: Speci men Type: ARTERIAL BLOOD SPECIMENOrdering Facility: [facility] Address: [address] [place] [address] Performed By: #### A LLBG ####[facility]ORYCLIA [id number] [address] [place] Hematocrit (Bld) [Volume fraction] 31.8 % Low 39.0-51.0 [facility] Comment on above: Order Comment: Speci men Type: ARTERIAL BLOOD SPECIMENOrdering Facility: [facility] Address: [address] [place] [address] Performed By: #### A LLBG ####[facility]ORYCLIA [id number] [address] [place] Hemoglobin (Bld) [Mass/Vol] 10.3 g/dL Low 13.0-17.0 [facility] Comment on above: Order Comment: Speci men Type: ARTERIAL BLOOD SPECIMENOrdering Facility: [facility] Address: [address] [address] Performed By: #### A LLBG ####[facility]ORYCLIA [id number] [address] Methemoglobin (Bld) [Mass fraction] 1.0 % Normal 0.0-1.5 [facility] Comment on above: Order Comment: Speci men Type: ARTERIAL BLOOD SPECIMENOrdering Facility: [facility] Address: [address] [place] [address] Performed By: #### A LLBG ####[facility]ORYCLIA [id number] [address] O2 THERAPY Ventilator Normal [facility] Comment on above: Order Comment: Speci men Type: ARTERIAL BLOOD SPECIMENOrdering Facility: [facility] Address: [address] [place] [address] Performed By: #### A LLBG ####[facility]ORYCLIA [id number] [address] Oxygen (Bld) [Partial pressure] 78 mm Hg Low 85-95 [facility] Comment on above: Order Comment: Speci men Type: ARTERIAL BLOOD SPECIMENOrdering Facility: [facility] Address: [address] [place] [address] Performed By: #### A LLBG ####[facility]ORYCLIA [id number] [address] Oxygen adjusted to patient's actual temperature (Bld) [Partial pressure] 79.7 mmHg Low 85-95 [facility] Comment on above: Order Comment: Speci men Type: ARTERIAL BLOOD SPECIMENOrdering Facility: [facility] Address: [address] [address] Performed By: #### A LLBG ####[facility]ORYCLIA [id number] [address] [place] OXYGEN SATURATION, ARTERIAL 96 % Normal 95-98 [facility] Comment on above: Order Comment: Speci men Type: ARTERIAL BLOOD SPECIMENOrdering Facility: [facility] Address: [address] [place] [address] Performed By: #### A LLBG ####[facility]ORATORYCLIA [id number] [address] [place] Oxyhemoglobin (BldA) [Mass fraction] 94 % Low 95- [facility] Comment on above: Order Comment: Speci men Type: ARTERIAL BLOOD SPECIMENOrdering Facility: [facility] Address: [address] [place] [address] Performed By: #### A LLBG ####[facility] LABORATORYCLIA [id number] [place] [address] [place] pH (Bld) 7.47 [pH] High 7.35-7.45 [facility] Comment on above: Order Comment: Speci men Type: ARTERIAL BLOOD SPECIMENOrdering Facility: [facility] Address: [address] [place] [address] Performed By: #### A LLBG ####[facility]ATORYCLIA [id number] [address] STATES [facility] pH adjusted to patient's actual temperature (Bld) 7.46 High 7.35-7.45 [facility] Comment on above: Order Comment: Speci men Type: ARTERIAL BLOOD SPECIMENOrdering Facility: [facility] Address: [address] [place] [address] Performed By: #### A LLBG ####[facility]ATORYCLIA [id number] [place] [address] [place] Potassium [Moles/Vol] 3.7 mmol/L Normal 3.5-5.0 [facility] Comment on above: Order Comment: Speci men Type: ARTERIAL BLOOD SPECIMENOrdering Facility: [facility] Address: [address] [place] [address] Performed By: #### A LLBG ####[facility]ATORYCLIA [id number] [address] [place] Sodium [Moles/Vol] 155 mmol/L High 136-144 [facility] Comment on above: Order Comment: Speci men Type: ARTERIAL BLOOD SPECIMENOrdering Facility: [facility] Address: [address] [place] [address] Performed By: #### A LLBG ####[facility]ATORYCLIA [id number] [address] [place] Bacteria Spec Resp Culton Bacteria identified Respiratory culture Nom (Unsp spec) CULTURE, RESPIRATORY: Rare Normal respiratory chris present ORGANISM ID: 1 Few Yeast, not cryptococcus neoformans GRAM STAIN: No organisms seen Few Polymorphonuclear leukocytes Few Epithelial cells Abnormal [facility] Comment on above: Performed By: #### 3 2355-0 ####[facility]ATORYCLIA [id number] [place] [address] [place] Basic metabolic 2000 panelon 06-16-2021 Anion gap [Moles/Vol] 9 mmol/L Normal 9-18 [facility] Comment on above: Order Comment: Speci men Type: BLOOD SPECIMENOrdering Facility: [facility] Address: [address] [place] [address] Performed By: #### 2 4321-2 ####[facility]ATORYCLIA [id number] [place] [address] [place] Calcium [Mass/Vol] 8.4 mg/dL Low 8.5-10.2 [facility] Comment on above: Order Comment: Speci men Type: BLOOD SPECIMENOrdering Facility: [facility] Address: [address] [place] [address] Performed By: #### 2 4321-2 ####[facility]ATORYCLIA [id number] [place] [address] [place] Chloride [Moles/Vol] 120 mmol/L High 97-105 [facility] Comment on above: Order Comment: Speci men Type: BLOOD SPECIMENOrdering Facility: [facility] Address: [address] [place] [address] Performed By: #### 2 4321-2 ####[facility]ATORYCLIA [id number] [address] STATES OF [facility] CO2 [Moles/Vol] 27 mmol/L Normal 22-30 [facility] Comment on above: Order Comment: Speci men Type: BLOOD SPECIMENOrdering Facility: [facility] Address: [address] [place] [address] Performed By: #### 2 4321-2 ####[facility]ORYCLIA [id number] [address] [place] Creatinine [Mass/Vol] 0.75 mg/dL Normal 0.73-1.22 [facility] Comment on above: Order Comment: Speci men Type: BLOOD SPECIMENOrdering Facility: [facility] Address: [address] [place] [address] Performed By: #### 2 4321-2 ####[facility] [id number] [address] [place] GFR/1.73 sq M.predicted MDRD (S/P/Bld) [Vol rate/Area] mL/min/{1.73_m2} Normal [facility] Comment on above: Order Comment: Speci men Type: BLOOD SPECIMENOrdering Facility: [facility] Address: [address] [place] [address] Result Comment: >60e GFR (Estimated GFR) Units [...] GFR. Performed By: #### 2 4321-2 ####[facility]ORYCLIA [id number] [address] [place] Glucose [Mass/Vol] 160 mg/dL High 74-99 [facility] Comment on above: Order Comment: Speci men Type: BLOOD SPECIMENOrdering Facility: [facility] Address: [address] [place] [address] Result Comment: The [place] [employer] (ADA) provides guidance for cutoff [...] Standards of Medical Care in Diabetes 2016, [place] [employer]. Diabetes Care. 2016.39(Suppl 1). Performed By: #### 2 4321-2 ####[facility]ATORYCLIA [id number] [place] [address] [place] Potassium [Moles/Vol] 3.1 mmol/L Low 3.7-5.1 [facility] Comment on above: Order Comment: Shira men Type: BLOOD SPECIMENOrdering Facility: [facility] Address: [address] [place] [address] Performed By: #### 2 4321-2 ####[facility]ORYCLIA [id number] [place] [address] [place] Sodium [Moles/Vol] 156 mmol/L High 136-144 [facility] Comment on above: Order Comment: Speci men Type: BLOOD SPECIMENOrdering Facility: [facility] Address: [address] [place] [address] Performed By: #### 2 4321-2 ####[facility]ORYCLIA [id number] [place] [address] [place] Urea nitrogen [Mass/Vol] 33 mg/dL High 9-24 [facility] Comment on above: Order Comment: Speci men Type: BLOOD SPECIMENOrdering Facility: [facility] Address: [address] [place] [address] Performed By: #### 2 4321-2 ####[facility]ATORYCLIA [id number] [address] CASE MANAGEMon 06-16-[address] [facility] CBC panel Auto (Bld)on 06-16 Erythrocyte distribution width (RBC) [Ratio] 15.9 % High 11.5-15.0 [facility] Comment on above: Order Comment: Speci men Type: BLOOD SPECIMENOrdering Facility: [facility] Address: [address] [place] [address] Performed By: #### 5 8410-2 ####[facility]ATORYCLIA [id number] [address] STATES [facility] Hematocrit (Bld) [Volume fraction] 34.6 % Low 39.0-51.0 [facility] Comment on above: Order Comment: Speci men Type: BLOOD SPECIMENOrdering Facility: [facility] Address: [address] [place] [address] Performed By: #### 5 8410-2 ####[facility]ATORYCLIA [id number] [address] Hemoglobin (Bld) [Mass/Vol] 10.2 g/dL Low 13.0-17.0 [facility] Comment on above: Order Comment: Speci men Type: BLOOD SPECIMENOrdering Facility: [facility] Address: [address] [place] [address] Performed By: #### 5 8410-2 ####[facility]ATORYCLIA [id number] [address] MCH (RBC) [Entitic mass] 28.5 pg Normal 26.0-34.0 [facility] Comment on above: Order Comment: Speci men Type: BLOOD SPECIMENOrdering Facility: [facility] Address: [address] [place] [address] Performed By: #### 5 8410-2 ####[facility]ATORYCLIA [id number] [address] STATES [facility] MCHC (RBC) [Mass/Vol] 29.5 g/dL Low 30.5-36.0 [facility] Comment on above: Order Comment: Speci men Type: BLOOD SPECIMENOrdering Facility: [facility] Address: [address] [place] [address] Performed By: #### 5 8410-2 ####[facility]ATORYCLIA [id number] [address] STATES OF [facility] MCV (RBC) [Entitic vol] 96.6 fL Normal 80.0-100.0 [facility] Comment on above: Order Comment: Speci men Type: BLOOD SPECIMENOrdering Facility: [facility] Address: [address] [place] [address] Performed By: #### 5 8410-2 ####[facility]ORYCLIA [id number] [address] Nucleated RBC (Bld) [#/Vol] 10*3/uL Normal <0.01 [facility] Comment on above: Order Comment: Speci men Type: BLOOD SPECIMENOrdering Facility: [facility] Address: [address] [place] [address] Performed By: #### 5 8410-2 ####[facility]ATORYCLIA [id number] [address] [place] Platelet mean volume (Bld) [Entitic vol] 11.9 fL Normal 9.0-12.7 [facility] Comment on above: Order Comment: Speci men Type: BLOOD SPECIMENOrdering Facility: [facility] Address: [address] [place] [address] Performed By: #### 5 8410-2 ####[facility]ATORYCLIA [id number] [address] [place] Platelets (Bld) [#/Vol] 269 10*3/uL Normal 150-400 [facility] Comment on above: Order Comment: Speci men Type: BLOOD SPECIMENOrdering Facility: [facility] Address: [address] [place] [address] Performed By: #### 5 8410-2 ####[facility]ORYCLIA [id number] [address] STATES OF [facility] RBC (Bld) [#/Vol] 3.58 10*6/uL Low 4.20-6.00 [facility] Comment on above: Order Comment: Speci men Type: BLOOD SPECIMENOrdering Facility: [facility] Address: [address] [place] [address] Performed By: #### 5 8410-2 ####[facility]ATORYCLIA [id number] [address] WBC (Bld) [#/Vol] 13.11 10*3/uL High 3.70-11.00 [facility] Comment on above: Order Comment: Speci men Type: BLOOD SPECIMENOrdering Facility: [facility] Address: [address] [place] [address] Performed By: #### 5 8410-2 ####[facility]ATORYCLIA [id number] [address] [place] CONSULTon 06-16-[address] [facility] CONSULT PROGon 06-16-[address] [facility] CT BRAIN WO IVCONon 06-16-[address] BRAIN WO IVCON Normal [facility] HEMOGLOBIN (HGB)on 2 Hemoglobin (Bld) [Mass/Vol] 8.9 g/dL Low 13.0-17.0 [facility] Comment on above: Order Comment: Speci men Type: BLOOD SPECIMENOrdering Facility: [facility] Address: [address] [place] [address] Performed By: #### H GB ####[facility]ATORYCLIA [id number] [address] OF [facility] Hemoglobin (Bld) [Mass/Vol] 9.6 g/dL Low 13.0-17.0 [facility] Comment on above: Order Comment: Speci men Type: BLOOD SPECIMENOrdering Facility: [facility] Address: [address] [place] [address] Performed By: #### H GB ####[facility]ATORYCLIA [id number] [address] [place] Magnesium SerPl-mCncon 06-16 Magnesium [Mass/Vol] 2.7 mg/dL High 1.7-2.3 [facility] Comment on above: Order Comment: Speci men Type: BLOOD SPECIMENOrdering Facility: [facility] Address: [address] [place] [address] Performed By: #### 1 9123-9 ####[facility]ATORYCLIA [id number] [address] [place] NURSING PROGon 06-16-[address] [facility] NUTRITIONon 06-16-[address] [facility] Phosphate SerPl-mCncon 06-16 Phosphate [Mass/Vol] 1.4 mg/dL Low 2.7-4.8 [facility] Comment on above: Order Comment: Speci men Type: BLOOD SPECIMENOrdering Facility: [facility] Address: [address] [place] [address] Performed By: #### 2 777-1 ####[facility]ORYCLIA [id number] [address] [place] STAPH AUREUS PCRon 2 S. aureus and MRSA panel MEGAN+probe (Nose) Normal Negative [facility] Comment on above: Order Comment: Speci men Type: SWAB OF INTERNAL NOSEOrdering Facility: [facility] Address: [address] [place] [address] Result Comment: Nega tive for Staphylococcus aureus by PCR.Negative for MRSA by PCR Performed By: #### S APCR ####[facility]ATORYCLIA [id number] [address] [place] Sodium SerPl-sCncon 06-16-19 Sodium [Moles/Vol] 150 mmol/L High 136-144 [facility] Comment on above: Order Comment: Speci men Type: BLOOD SPECIMENOrdering Facility: [facility] Address: [address] [place] [address] Performed By: #### 2 951-2 ####[facility]ATORYCLIA [id number] [place] [address] [place] Sodium [Moles/Vol] 153 mmol/L High 136-144 [facility] Comment on above: Order Comment: Speci men Type: BLOOD SPECIMENOrdering Facility: [facility] Address: [address] [place] [address] Performed By: #### 2 951-2 ####[facility]ATORYCLIA [id number] [address] [place] Sodium [Moles/Vol] 158 mmol/L High 136-144 [facility] Comment on above: Order Comment: Speci men Type: BLOOD SPECIMENOrdering Facility: [facility] Address: [address] [place] [address] Performed By: #### 2 951-2 ####[facility]ATORYCLIA [id number] [address] [place] aPTT PPPon 06-16-2021 aPTT Coag (PPP) [Time] 61.8 s High 23.0-32.4 [facility] Comment on above: Order Comment: Speci men Type: BLOOD SPECIMENOrdering Facility: [facility] Address: [address] [place] [address] Performed By: #### 1 4979-9 ####[facility]ATORYCLIA [id number] [address] [place] aPTT Coag (PPP) [Time] 57.6 s High 23.0-32.4 [facility] Comment on above: Order Comment: Speci men Type: BLOOD SPECIMENOrdering Facility: [facility] Address: [address] [place] [address] Performed By: #### 1 4979-9 ####[facility]ORYCLIA [id number] [address] [place] ALLIED HEALTHon 06-15-[address] [facility] ALLIED HEALTH Normal [facility] ALLIED HEALTH Normal [facility] ALLIED HEALTH Normal [facility] ARTERIAL BLOOD GASESon 06-15 Base excess Calc (Bld) [Moles/Vol] 3 mmol/L High 0-2 [facility] Comment on above: Order Comment: Speci men Type: ARTERIAL BLOOD SPECIMENOrdering Facility: [facility] Address: [address] [place] [address] Performed By: #### A LLBG ####[facility]ATORYCLIA [id number] [address] [place] Body temperature 99.5 [degF] Normal [facility] Comment on above: Order Comment: Speci men Type: ARTERIAL BLOOD SPECIMENOrdering Facility: [facility] Address: [address] [place] [address] Performed By: #### A LLBG ####[facility]ATORYCLIA [id number] [place] [address] [place] CALCIUM IONIZED, PH CORRECTED 1.34 mmol/L High 1.08-1.30 [facility] Comment on above: Order Comment: Speci men Type: ARTERIAL BLOOD SPECIMENOrdering Facility: [facility] Address: [address] [place] [address] Performed By: #### A LLBG ####[facility]ATORYCLIA [id number] [address] [place] Calcium.ionized (BldV) [Mass/Vol] 1.29 mmol/L Normal 1.08-1.30 [facility] Comment on above: Order Comment: Speci men Type: ARTERIAL BLOOD SPECIMENOrdering Facility: [facility] Address: [address] [place] [address] Performed By: #### A LLBG ####[facility]ATORYCLIA [id number] [address] [place] Carboxyhemoglobin (BldA) [Mass fraction] 1.3 % Normal 0.0-2.0 [facility] Comment on above: Order Comment: Speci men Type: ARTERIAL BLOOD SPECIMENOrdering Facility: [facility] Address: [address] [address] Result Comment: Carb oxyhemoglobin Reference Range for Smokers: 2.0-8.0% Performed By: #### A LLBG ####[facility]ATORYCLIA [id number] [address] [place] CO2 (Bld) [Partial pressure] 37 mm Hg Normal 36-46 [facility] Comment on above: Order Comment: Speci men Type: ARTERIAL BLOOD SPECIMENOrdering Facility: [facility] Address: [address] [address] Performed By: #### A LLBG ####[facility]ORYCLIA [id number] [address] [place] CO2 [Moles/Vol] 24.6 mmol/L Normal 22-28 [facility] Comment on above: Order Comment: Speci men Type: ARTERIAL BLOOD SPECIMENOrdering Facility: [facility] Address: [address] [address] Performed By: #### A LLBG ####[facility]ATORYCLIA [id number] [address] [place] CO2 adjusted to patient's actual temperature (Bld) [Partial pressure] 38 mmHg Normal 36-46 [facility] Comment on above: Order Comment: Speci men Type: ARTERIAL BLOOD SPECIMENOrdering Facility: [facility] Address: [address] [address] Performed By: #### A LLBG ####[facility]ATORYCLIA [id number] [address] [place] FIO2 100 % Normal [facility] Comment on above: Order Comment: Speci men Type: ARTERIAL BLOOD SPECIMENOrdering Facility: [facility] Address: [address] [address] Performed By: #### A LLBG ####[facility]ATORYCLIA [id number] [address] [place] Glucose [Mass/Vol] 159 mg/dL High 60-105 [facility] Comment on above: Order Comment: Speci men Type: ARTERIAL BLOOD SPECIMENOrdering Facility: [facility] Address: [address] [place] [address] Performed By: #### A LLBG ####[facility]ATORYCLIA [id number] [address] [place] HCO3 (Bld) [Moles/Vol] 27 mmol/L High 22-26 [facility] Comment on above: Order Comment: Speci men Type: ARTERIAL BLOOD SPECIMENOrdering Facility: [facility] Address: [address] [place] [address] Performed By: #### A LLBG ####[facility]ATORYCLIA [id number] [address] Hematocrit (Bld) [Volume fraction] 31.0 % Low 39.0-51.0 [facility] Comment on above: Order Comment: Speci men Type: ARTERIAL BLOOD SPECIMENOrdering Facility: [facility] Address: [address] [place] [address] Performed By: #### A LLBG ####[facility]ORYCLIA [id number] [address] [place] Hemoglobin (Bld) [Mass/Vol] 10.0 g/dL Low 13.0-17.0 [facility] Comment on above: Order Comment: Speci men Type: ARTERIAL BLOOD SPECIMENOrdering Facility: [facility] Address: [address] [place] [address] Performed By: #### A LLBG ####[facility]ORYCLIA [id number] [address] [place] Methemoglobin (Bld) [Mass fraction] % Normal 0.0-1.5 [facility] Comment on above: Order Comment: Speci men Type: ARTERIAL BLOOD SPECIMENOrdering Facility: [facility] Address: [facility] [place] [address] Performed By: #### A LLBG ####[facility]ATORYCLIA [id number] [address] [place] O2 THERAPY Ventilator Normal [facility] Comment on above: Order Comment: Speci men Type: ARTERIAL BLOOD SPECIMENOrdering Facility: [facility] Address: [address] [place] [address] Performed By: #### A LLBG ####[facility]ATORYCLIA [id number] [address] [place] Oxygen (Bld) [Partial pressure] 279 mm Hg High 85-95 [facility] Comment on above: Order Comment: Speci men Type: ARTERIAL BLOOD SPECIMENOrdering Facility: [facility] Address: [address] [place] [address] Performed By: #### A LLBG ####[facility]ORYCLIA [id number] [address] Oxygen adjusted to patient's actual temperature (Bld) [Partial pressure] 281 mmHg High 85-95 [facility] Comment on above: Order Comment: Speci men Type: ARTERIAL BLOOD SPECIMENOrdering Facility: [facility] Address: [address] [place] [address] Performed By: #### A LLBG ####[facility]ORYCLIA [id number] [address] [place] OXYGEN SATURATION, ARTERIAL 100 % High 95-98 [facility] Comment on above: Order Comment: Speci men Type: ARTERIAL BLOOD SPECIMENOrdering Facility: [facility] Address: [facility] [place] [address] Performed By: #### A LLBG ####[facility]ORYCLIA [id number] [address] [place] Oxyhemoglobin (BldA) [Mass fraction] 98 % Normal 95-98 [facility] Comment on above: Order Comment: Speci men Type: ARTERIAL BLOOD SPECIMENOrdering Facility: [facility] Address: [address] [place] [address] Performed By: #### A LLBG ####[facility]ATORYCLIA [id number] [address] pH (Bld) 7.47 [pH] High 7.35-7.45 [facility] Comment on above: Order Comment: Speci men Type: ARTERIAL BLOOD SPECIMENOrdering Facility: [facility] Address: [address] [place] [address] Performed By: #### A LLBG ####[facility]ATORYCLIA [id number] [address] pH adjusted to patient's actual temperature (Bld) 7.46 High 7.35-7.45 [facility] Comment on above: Order Comment: Speci men Type: ARTERIAL BLOOD SPECIMENOrdering Facility: [facility] Address: [address] [place] [address] Performed By: #### A LLBG ####[facility]ATORYCLIA [id number] [address] [place] Potassium [Moles/Vol] 3.6 mmol/L Normal 3.5-5.0 [facility] Comment on above: Order Comment: Speci men Type: ARTERIAL BLOOD SPECIMENOrdering Facility: [facility] Address: [address] [place] [address] Performed By: #### A LLBG ####[facility]ATORYCLIA [id number] [address] [place] Sodium [Moles/Vol] 162 mmol/L High 136-144 [facility] Comment on above: Order Comment: Speci men Type: ARTERIAL BLOOD SPECIMENOrdering Facility: [facility] Address: [address] [place] [address] Performed By: #### A LLBG ####[facility]ATORYCLIA [id number] [address] [place] Base excess Calc (Bld) [Moles/Vol] 4 mmol/L High 0-2 [facility] Comment on above: Order Comment: Speci men Type: ARTERIAL BLOOD SPECIMENOrdering Facility: [facility] Address: [address] [place] [address] Performed By: #### A LLBG ####[facility]ATORYCLIA [id number] [address] [place] Body temperature 100.58 [degF] Normal [facility] Comment on above: Order Comment: Speci men Type: ARTERIAL BLOOD SPECIMENOrdering Facility: [facility] Address: [address] [place] [address] Performed By: #### A LLBG ####[facility]ORATORYCLIA [id number] [place] [address] [place] CALCIUM IONIZED, PH CORRECTED 1.34 mmol/L High 1.08-1.30 [facility] Comment on above: Order Comment: Speci men Type: ARTERIAL BLOOD SPECIMENOrdering Facility: [facility] Address: [address] [place] [address] Performed By: #### A LLBG ####[facility]ATORYCLIA [id number] [address] [place] Calcium.ionized (BldV) [Mass/Vol] 1.33 mmol/L High 1.08-1.30 [facility] Comment on above: Order Comment: Speci men Type: ARTERIAL BLOOD SPECIMENOrdering Facility: [facility] Address: [address] [place] [address] Performed By: #### A LLBG ####[facility]ORATORYCLIA [id number] [place] [address] [place] Carboxyhemoglobin (BldA) [Mass fraction] 1.5 % Normal 0.0-2.0 [facility] Comment on above: Order Comment: Speci men Type: ARTERIAL BLOOD SPECIMENOrdering Facility: [facility] Address: [address] [place] [address] Result Comment: Carb oxyhemoglobin Reference Range for Smokers: 2.0-8.0% Performed By: #### A LLBG ####[facility]ORATORYCLIA [id number] [address] CO2 (Bld) [Partial pressure] 46 mm Hg Normal 36-46 [facility] Comment on above: Order Comment: Speci men Type: ARTERIAL BLOOD SPECIMENOrdering Facility: [facility] Address: [address] [address] Performed By: #### A LLBG ####[facility]ATORYCLIA [id number] [address] CO2 [Moles/Vol] 26.4 mmol/L Normal 22-28 [facility] Comment on above: Order Comment: Speci men Type: ARTERIAL BLOOD SPECIMENOrdering Facility: [facility] Address: [address] [place] [address] Performed By: #### A LLBG ####[facility]ORATORYCLIA [id number] [address] CO2 adjusted to patient's actual temperature (Bld) [Partial pressure] 48 mmHg High 36-46 [facility] Comment on above: Order Comment: Speci men Type: ARTERIAL BLOOD SPECIMENOrdering Facility: [facility] Address: [address] [place] [address] Performed By: #### A LLBG ####[facility]ORATORYCLIA [id number] [address] FIO2 100 % Normal [facility] Comment on above: Order Comment: Speci men Type: ARTERIAL BLOOD SPECIMENOrdering Facility: [facility] Address: [address] [address] Performed By: #### A LLBG ####[facility]ORYCLIA [id number] [address] Glucose [Mass/Vol] 132 mg/dL High 60-105 [facility] Comment on above: Order Comment: Speci men Type: ARTERIAL BLOOD SPECIMENOrdering Facility: [facility] Address: [address] [place], [place] [address] Performed By: #### A LLBG ####[facility]ATORYCLIA [id number] [address] [place] HCO3 (Bld) [Moles/Vol] 29 mmol/L High 22-26 [facility] Comment on above: Order Comment: Speci men Type: ARTERIAL BLOOD SPECIMENOrdering Facility: [facility] Address: [address] [place] [address] Performed By: #### A LLBG ####[facility]ATORYCLIA [id number] [address] [place] Hematocrit (Bld) [Volume fraction] 32.3 % Low 39.0-51.0 [facility] Comment on above: Order Comment: Speci men Type: ARTERIAL BLOOD SPECIMENOrdering Facility: [facility] Address: [address] [place] [address] Performed By: #### A LLBG ####[facility]ATORYCLIA [id number] [address] OF [facility] Hemoglobin (Bld) [Mass/Vol] 10.4 g/dL Low 13.0-17.0 [facility] Comment on above: Order Comment: Speci men Type: ARTERIAL BLOOD SPECIMENOrdering Facility: [facility] Address: [address] [place] [address] Performed By: #### A LLBG ####[facility]ATORYCLIA [id number] [address] [place] Methemoglobin (Bld) [Mass fraction] % Normal 0.0-1.5 [facility] Comment on above: Order Comment: Speci men Type: ARTERIAL BLOOD SPECIMENOrdering Facility: [facility] Address: [address] [place] [address] Performed By: #### A LLBG ####[facility]ATORYCLIA [id number] [address] [place] O2 THERAPY NR=Non-Rebreather Mask Normal [facility] Comment on above: Order Comment: Speci men Type: ARTERIAL BLOOD SPECIMENOrdering Facility: [facility] Address: [address] [place] [address] Performed By: #### A LLBG ####[facility]ORYCLIA [id number] [address] Oxygen (Bld) [Partial pressure] 130 mm Hg High 85-95 [facility] Comment on above: Order Comment: Speci men Type: ARTERIAL BLOOD SPECIMENOrdering Facility: [facility] Address: [address] [place] [address] Performed By: #### A LLBG ####[facility]ATORYCLIA [id number] [address] Oxygen adjusted to patient's actual temperature (Bld) [Partial pressure] 136 mmHg High 85-95 [facility] Comment on above: Order Comment: Speci men Type: ARTERIAL BLOOD SPECIMENOrdering Facility: [facility] Address: [address] [place] [address] Performed By: #### A LLBG ####[facility]ATORYCLIA [id number] [address] [place] OXYGEN SATURATION, ARTERIAL 99 % High 95-98 [facility] Comment on above: Order Comment: Speci men Type: ARTERIAL BLOOD SPECIMENOrdering Facility: [facility] Address: [address] [place] [address] Performed By: #### A LLBG ####[facility]ORYCLIA [id number] [address] [place] Oxyhemoglobin (BldA) [Mass fraction] 97 % Normal 95-98 [facility] Comment on above: Order Comment: Speci men Type: ARTERIAL BLOOD SPECIMENOrdering Facility: [facility] Address: [address] [place] [address] Performed By: #### A LLBG ####[facility]ORYCLIA [id number] [address] [place] pH (Bld) 7.41 [pH] Normal 7.35-7.45 [facility] Comment on above: Order Comment: Speci men Type: ARTERIAL BLOOD SPECIMENOrdering Facility: [facility] Address: [address] [place] [address] Performed By: #### A LLBG ####[facility]ATORYCLIA [id number] [address] pH adjusted to patient's actual temperature (Bld) 7.40 Normal 7.35-7.45 [facility] Comment on above: Order Comment: Speci men Type: ARTERIAL BLOOD SPECIMENOrdering Facility: [facility] Address: [address] [place] [address] Performed By: #### A LLBG ####[facility]ATORYCLIA [id number] [address] Potassium [Moles/Vol] 3.8 mmol/L Normal 3.5-5.0 [facility] Comment on above: Order Comment: Speci men Type: ARTERIAL BLOOD SPECIMENOrdering Facility: [facility] Address: [address] [place] [address] Performed By: #### A LLBG ####[facility]ATORYCLIA [id number] [address] STATES [facility] Sodium [Moles/Vol] 166 mmol/L High 136-144 [facility] Comment on above: Order Comment: Speci men Type: ARTERIAL BLOOD SPECIMENOrdering Facility: [facility] Address: [address] [place] [address] Performed By: #### A LLBG ####[facility]ORATORYCLIA [id number] [place] [address] [place] Bacteria Bld Culton 06-15-19 Bacteria identified Cx Nom (Bld) CULTURE, BLOOD: No growth [address] [facility] Comment on above: Performed By: #### 6 00-7 ####[facility]ATORYCLIA [id number] [place] [address] [place] Basic metabolic 2000 panelon 06-15-2021 Anion gap [Moles/Vol] 9 mmol/L Normal 9-18 [facility] Comment on above: Order Comment: Speci men Type: BLOOD SPECIMEN Performed By: #### 2 4321-2, 2776-05, ####[facility]ATORYCLIA [id number] [place], [place] [address] [place] [address] [place] [facility] Calcium [Mass/Vol] 9.0 mg/dL Normal 8.5-10.2 [facility] Comment on above: Order Comment: Speci men Type: BLOOD SPECIMEN Performed By: #### 2 4321-2, 2776-05, ####[facility]ATORYCLIA [id number] [address] [place] Chloride [Moles/Vol] 125 mmol/L High 97-105 [facility] Comment on above: Order Comment: Speci men Type: BLOOD SPECIMEN Performed By: #### 2 4321-2, 2776-05, ####[facility]ATORYCLIA [id number] [address] [place] CO2 [Moles/Vol] 29 mmol/L Normal 22-30 [facility] Comment on above: Order Comment: Speci men Type: BLOOD SPECIMEN Performed By: #### 2 4321-2, 2776-05, ####[facility]ORYCLIA [id number] [address] [place] Creatinine [Mass/Vol] 0.81 mg/dL Normal 0.73-1.22 [facility] Comment on above: Order Comment: Speci men Type: BLOOD SPECIMEN Performed By: #### 2 4321-2, 2776-05, ####[facility]ATORYCLIA [id number] [place] [address] [place] GFR/1.73 sq M.predicted MDRD (S/P/Bld) [Vol rate/Area] mL/min/{1.73_m2} Normal [facility] Comment on above: Order [...] Performed By: #### 2 4321-2, 2776-05, ####[facility]CL[facility] [id number] [place] [address] [place] Glucose [Mass/Vol] 124 mg/dL High 74-99 [facility] Comment on above: Order Comment: Speci men Type: BLOOD SPECIMEN Result Comment: The [place] [employer] (ADA) provides guidance for cutoff [...] Standards of Medical Care in Diabetes 2016, [place] [employer]. Diabetes Care. 2016.39(Suppl 1). Performed By: #### 2 4321-2, 2776-05, ####[facility]ATORYCLIA [id number] [place] [address] [place] Potassium [Moles/Vol] 3.8 mmol/L Normal 3.7-5.1 [facility] Comment on above: Order Comment: Speci men Type: BLOOD SPECIMEN Performed By: #### 2 4321-2, 2776-05, ####[facility]ATORYCLIA [id number] [place] [address] [place] Sodium [Moles/Vol] 163 mmol/L High 136-144 [facility] Comment on above: Order Comment: Speci men Type: BLOOD SPECIMEN Performed By: #### 2 4321-2, 2776-, ####[facility]ATORYCLIA [id number] [place], [place] [address] [place] [address] [place] Urea nitrogen [Mass/Vol] 35 mg/dL High 9-24 [facility] Comment on above: Order Comment: Speci men Type: BLOOD SPECIMEN Performed By: #### 2 4321-2, 2776-, ####[facility]ATORYCLIA [id number] [address] [place] CBC panel Auto (Bld)on 06-15 Erythrocyte distribution width (RBC) [Ratio] 16.3 % High 11.5-15.0 [facility] Comment on above: Order Comment: Speci men Type: BLOOD SPECIMENOrdering Facility: [facility] Address: [address] [place] [address] Performed By: #### 5 8410-2 ####[facility]ATORYCLIA [id number] [address] [place] Hematocrit (Bld) [Volume fraction] 30.0 % Low 39.0-51.0 [facility] Comment on above: Order Comment: Speci men Type: BLOOD SPECIMENOrdering Facility: [facility] Address: [address] [place] [address] Performed By: #### 5 8410-2 ####[facility]ATORYCLIA [id number] [address] [place] Hemoglobin (Bld) [Mass/Vol] 8.9 g/dL Low 13.0-17.0 [facility] Comment on above: Order Comment: Speci men Type: BLOOD SPECIMENOrdering Facility: [facility] Address: [address] [place] [address] Performed By: #### 5 8410-2 ####[facility]ATORYCLIA [id number] [address] MCH (RBC) [Entitic mass] 28.7 pg Normal 26.0-34.0 [facility] Comment on above: Order Comment: Speci men Type: BLOOD SPECIMENOrdering Facility: [facility] Address: [address] [place] [address] Performed By: #### 5 8410-2 ####[facility]ATORYCLIA [id number] [address] MCHC (RBC) [Mass/Vol] 29.7 g/dL Low 30.5-36.0 [facility] Comment on above: Order Comment: Speci men Type: BLOOD SPECIMENOrdering Facility: [facility] Address: [address] [place] [address] Performed By: #### 5 8410-2 ####[facility]ATORYCLIA [id number] [address] MCV (RBC) [Entitic vol] 96.8 fL Normal 80.0-100.0 [facility] Comment on above: Order Comment: Speci men Type: BLOOD SPECIMENOrdering Facility: [facility] Address: [address] [place] [address] Performed By: #### 5 8410-2 ####[facility]ATORYCLIA [id number] [address] Nucleated RBC (Bld) [#/Vol] 10*3/uL Normal <0.01 [facility] Comment on above: Order Comment: Speci men Type: BLOOD SPECIMENOrdering Facility: [facility] Address: [address] [place] [address] Performed By: #### 5 8410-2 ####[facility]ATORYCLIA [id number] [address] Platelet mean volume (Bld) [Entitic vol] 12.3 fL Normal 9.0-12.7 [facility] Comment on above: Order Comment: Speci men Type: BLOOD SPECIMENOrdering Facility: [facility] Address: [address] [address] Performed By: #### 5 8410-2 ####[facility]ATORYCLIA [id number] [address] Platelets (Bld) [#/Vol] 226 10*3/uL Normal 150-400 [facility] Comment on above: Order Comment: Speci men Type: BLOOD SPECIMENOrdering Facility: [facility] Address: [address] [place] [address] Performed By: #### 5 8410-2 ####[facility]ATORYCLIA [id number] [address] RBC (Bld) [#/Vol] 3.10 10*6/uL Low 4.20-6.00 [facility] Comment on above: Order Comment: Speci men Type: BLOOD SPECIMENOrdering Facility: [facility] Address: [address] [place] [address] Performed By: #### 5 8410-2 ####[facility]ORYCLIA [id number] [address] WBC (Bld) [#/Vol] 10.77 10*3/uL Normal 3.70-11.00 [facility] Comment on above: Order Comment: Speci men Type: BLOOD SPECIMENOrdering Facility: [facility] Address: [address] [place] [address] Performed By: #### 5 8410-2 ####[facility]ATORYCLIA [id number] [address] Erythrocyte distribution width (RBC) [Ratio] 16.2 % High 11.5-15.0 [facility] Comment on above: Order Comment: Speci men Type: BLOOD SPECIMENOrdering Facility: [facility] Address: [address] [place] [address] Performed By: #### 5 8410-2 ####[facility]ATORYCLIA [id number] [address] Hematocrit (Bld) [Volume fraction] 34.8 % Low 39.0-51.0 [facility] Comment on above: Order Comment: Speci men Type: BLOOD SPECIMENOrdering Facility: [facility] Address: [address] [place] [address] Performed By: #### 5 8410-2 ####[facility]ATORYCLIA [id number] [address] STATES OF [facility] Hemoglobin (Bld) [Mass/Vol] 10.0 g/dL Low 13.0-17.0 [facility] Comment on above: Order Comment: Speci men Type: BLOOD SPECIMENOrdering Facility: [facility] Address: [address] [place] [address] Performed By: #### 5 8410-2 ####[facility]ORYCLIA [id number] [address] OF [facility] MCH (RBC) [Entitic mass] 27.5 pg Normal 26.0-34.0 [facility] Comment on above: Order Comment: Speci men Type: BLOOD SPECIMENOrdering Facility: [facility] Address: [address] [place] [address] Performed By: #### 5 8410-2 ####[facility]ORYCLIA [id number] [address] STATES OF [facility] MCHC (RBC) [Mass/Vol] 28.7 g/dL Low 30.5-36.0 [facility] Comment on above: Order Comment: Speci men Type: BLOOD SPECIMENOrdering Facility: [facility] Address: [address] [place] [address] Performed By: #### 5 8410-2 ####[facility]ORYCLIA [id number] [address] MCV (RBC) [Entitic vol] 95.6 fL Normal 80.0-100.0 [facility] Comment on above: Order Comment: Speci men Type: BLOOD SPECIMENOrdering Facility: [facility] Address: [address] [place] [address] Performed By: #### 5 8410-2 ####[facility]ORYCLIA [id number] [address] Nucleated RBC (Bld) [#/Vol] 10*3/uL Normal <0.01 [facility] Comment on above: Order Comment: Speci men Type: BLOOD SPECIMENOrdering Facility: [facility] Address: [address] [place] [address] Performed By: #### 5 8410-2 ####[facility]ORYCLIA [id number] [address] [place] Platelet mean volume (Bld) [Entitic vol] 11.9 fL Normal 9.0-12.7 [facility] Comment on above: Order Comment: Speci men Type: BLOOD SPECIMENOrdering Facility: [facility] Address: [address] [place] [address] Performed By: #### 5 8410-2 ####[facility]ORYCLIA [id number] [address] [place] Platelets (Bld) [#/Vol] 246 10*3/uL Normal 150-400 [facility] Comment on above: Order Comment: Speci men Type: BLOOD SPECIMENOrdering Facility: [facility] Address: [address] [place] [address] Performed By: #### 5 8410-2 ####[facility]ORYCLIA [id number] [address] [place] RBC (Bld) [#/Vol] 3.64 10*6/uL Low 4.20-6.00 [facility] Comment on above: Order Comment: Speci men Type: BLOOD SPECIMENOrdering Facility: [facility] Address: [address] [place] [address] Performed By: #### 5 8410-2 ####[facility]ORYCLIA [id number] [address] [place] WBC (Bld) [#/Vol] 11.45 10*3/uL High 3.70-11.00 [facility] Comment on above: Order Comment: Speci men Type: BLOOD SPECIMENOrdering Facility: [facility] Address: [address] [place] [address] Performed By: #### 5 8410-2 ####[facility]ORYCLIA [id number] [address] Erythrocyte distribution width (RBC) [Ratio] 15.9 % High 11.5-15.0 [facility] Comment on above: Order Comment: Speci men Type: BLOOD SPECIMEN Performed By: #### 5 8410-2 ####[facility]ORYCLIA [id number] [address] Hematocrit (Bld) [Volume fraction] 35.8 % Low 39.0-51.0 [facility] Comment on above: Order Comment: Speci men Type: BLOOD SPECIMEN Performed By: #### 5 8410-2 ####[facility]ORYCLIA [id number] [address] Hemoglobin (Bld) [Mass/Vol] 10.4 g/dL Low 13.0-17.0 [facility] Comment on above: Order Comment: Speci men Type: BLOOD SPECIMEN Performed By: #### 5 8410-2 ####[facility]ORYCLIA [id number] [address] MCH (RBC) [Entitic mass] 28.0 pg Normal 26.0-34.0 [facility] Comment on above: Order Comment: Speci men Type: BLOOD SPECIMEN Performed By: #### 5 8410-2 ####[facility]ORYCLIA [id number] [address] OF [facility] MCHC (RBC) [Mass/Vol] 29.1 g/dL Low 30.5-36.0 [facility] Comment on above: Order Comment: Speci men Type: BLOOD SPECIMEN Performed By: #### 5 8410-2 ####[facility]ORYCLIA [id number] [address] MCV (RBC) [Entitic vol] 96.2 fL Normal 80.0-100.0 [facility] Comment on above: Order Comment: Speci men Type: BLOOD SPECIMEN Performed By: #### 5 8410-2 ####[facility]ORYCLIA [id number] [address] Nucleated RBC (Bld) [#/Vol] 10*3/uL Normal <0.01 [facility] Comment on above: Order Comment: Speci men Type: BLOOD SPECIMEN Performed By: #### 5 8410-2 ####[facility]ORYCLIA [id number] [address] Platelet mean volume (Bld) [Entitic vol] 11.6 fL Normal 9.0-12.7 [facility] Comment on above: Order Comment: Speci men Type: BLOOD SPECIMEN Performed By: #### 5 8410-2 ####[facility]ORYCLIA [id number] [address] Platelets (Bld) [#/Vol] 265 10*3/uL Normal 150-400 [facility] Comment on above: Order Comment: Speci men Type: BLOOD SPECIMEN Performed By: #### 5 8410-2 ####[facility]ORYCLIA [id number] [address] RBC (Bld) [#/Vol] 3.72 10*6/uL Low 4.20-6.00 [facility] Comment on above: Order Comment: Speci men Type: BLOOD SPECIMEN Performed By: #### 5 8410-2 ####[facility]ORYCLIA [id number] [address] WBC (Bld) [#/Vol] 12.24 10*3/uL High 3.70-11.00 [facility] Comment on above: Order Comment: Speci men Type: BLOOD SPECIMEN Performed By: #### 5 8410-2 ####[facility]ORYCLIA [id number] [address] [place] CONSULTon 06-15-[address] [facility] CONSULT Normal [facility] CONSULT Normal [facility] CT BRAIN WO IVCONon 06-15-19 CT BRAIN WO IVCON Normal [facility] CT CHEST W IVCON PEon 2021 CT CHEST W IVCON PE Invalid Interpretation Code [facility] Chloride Unsp time (U) [Mole s/Vol]on 06-15-2021 Chloride (U) [Moles/Vol] 28 mmol/L Normal 16-250 [facility] Comment on above: Order Comment: Speci men Type: URINE SPECIMENOrdering Facility: [facility] Address: [address] [place] [address] Performed By: #### U TPR, 70826-0, 66287-6, 49570-2 ####[facility]ATORYCLIA [id number] [address] Comprehensive metabolic 2000 panelon 06-15-2021 Albumin [Mass/Vol] 2.8 g/dL Low 3.9-4.9 [facility] Comment on above: Order Comment: Speci men Type: BLOOD SPECIMENOrdering Facility: [facility] Address: [address] [place] [address] Performed By: #### 2 4323-8 ####[facility]ORYCLIA [id number] [address] [place] ALP [Catalytic activity/Vol] 74 U/L Normal 38-113 [facility] Comment on above: Order Comment: Speci men Type: BLOOD SPECIMENOrdering Facility: [facility] Address: [address] [place] [address] Performed By: #### 2 4323-8 ####[facility]ATORYCLIA [id number] [address] [place] ALT With P-5'-P [Catalytic activity/Vol] 50 U/L Normal 10-54 [facility] Comment on above: Order Comment: Speci men Type: BLOOD SPECIMENOrdering Facility: [facility] Address: [address] [place] [address] Performed By: #### 2 4323-8 ####[facility] LABORATORYCLIA [id number] [place] [address] [place] Anion gap [Moles/Vol] 12 mmol/L Normal 9-18 [facility] Comment on above: Order Comment: Speci men Type: BLOOD SPECIMENOrdering Facility: [facility] Address: [address] [place] [address] Performed By: #### 2 4323-8 ####[facility]ORATORYCLIA [id number] [address] [place] AST With P-5'-P [Catalytic activity/Vol] 36 U/L Normal 14-40 [facility] Comment on above: Order Comment: Speci men Type: BLOOD SPECIMENOrdering Facility: [facility] Address: [address] [place] [address] Performed By: #### 2 4323-8 ####[facility]ORYCLIA [id number] [place] [address] [place] Bilirubin [Mass/Vol] 0.5 mg/dL Normal 0.2-1.3 [facility] Comment on above: Order Comment: Speci men Type: BLOOD SPECIMENOrdering Facility: [facility] Address: [address] [place] [address] Performed By: #### 2 4323-8 ####[facility]ATORYCLIA [id number] [address] [place] Calcium [Mass/Vol] 8.8 mg/dL Normal 8.5-10.2 [facility] Comment on above: Order Comment: Speci men Type: BLOOD SPECIMENOrdering Facility: [facility] Address: [address] [place] [address] Performed By: #### 2 4323-8 ####[facility] LABORATORYCLIA [id number] [address] [place] Chloride [Moles/Vol] 126 mmol/L High 97-105 [facility] Comment on above: Order Comment: Speccara feldman Type: BLOOD SPECIMENOrdering Facility: [facility] Address: [address] [place] [address] Performed By: #### 2 4323-8 ####[facility] LABORATORYCLIA [id number] [address] [place] CO2 [Moles/Vol] 24 mmol/L Normal 22-30 [facility] Comment on above: Order Comment: Johni francia Type: BLOOD SPECIMENOrdering Facility: [facility] Address: [address] [place] [address] Performed By: #### 2 4323-8 ####[facility]ATORYCLIA [id number] [address] [place] Creatinine [Mass/Vol] 0.84 mg/dL Normal 0.73-1.22 [facility] Comment on above: Order Comment: Johncara feldman Type: BLOOD SPECIMENOrdering Facility: [facility] Address: [address] [place] [address] Performed By: #### 2 4323-8 ####[facility]ORYCLIA [id number] [address] [place] GFR/1.73 sq M.predicted MDRD (S/P/Bld) [Vol rate/Area] mL/min/{1.73_m2} Normal [facility] Comment on above: Order Comment: Johncara feldman Type: BLOOD SPECIMENOrdering Facility: [facility] Address: [address] [place] [address] Result Comment: >60e GFR (Estimated GFR) Units [...] actual GFR. Performed By: #### 2 4323-8 ####[facility]ATORYCLIA [id number] [place] [address] [place] Glucose [Mass/Vol] 142 mg/dL High 74-99 [facility] Comment on above: Order Comment: Shira feldman Type: BLOOD SPECIMENOrdering Facility: [facility] Address: [address] [place] [address] Result Comment: The [place] [employer] (ADA) provides guidance for cutoff [...] Standards of Medical Care in Diabetes 2016, [place] [employer]. Diabetes Care. 2016.39(Suppl 1). Performed By: #### 2 4323-8 ####[facility]ATORYCLIA [id number] [place] [address] [place] Potassium [Moles/Vol] 3.8 mmol/L Normal 3.7-5.1 [facility] Comment on above: Order Comment: Shira feldman Type: BLOOD SPECIMENOrdering Facility: [facility] Address: [address] [address] Performed By: #### 2 4323-8 ####[facility]ATORYCLIA [id number] [place] [address] [place] Protein [Mass/Vol] 6.1 g/dL Low 6.3-8.0 [facility] Comment on above: Order Comment: Shira feldman Type: BLOOD SPECIMENOrdering Facility: [facility] Address: [address] [address] Performed By: #### 2 4323-8 ####[facility]ATORYCLIA [id number] [place] [address] [place] Sodium [Moles/Vol] 162 mmol/L High 136-144 [facility] Comment on above: Order Comment: Speci men Type: BLOOD SPECIMENOrdering Facility: [facility] Address: [address] [place] [address] Performed By: #### 2 4323-8 ####[facility]ATORYCLIA [id number] [place] [address] [place] Urea nitrogen [Mass/Vol] 33 mg/dL High 9-24 [facility] Comment on above: Order Comment: Speci men Type: BLOOD SPECIMENOrdering Facility: [facility] Address: [address] [place] [address] Performed By: #### 2 4323-8 ####[facility]ORYCLIA [id number] [address] [place] Creatinine Unsp time (U) [Ma ss/Vol]on 06-15-2021 Creatinine (U) [Mass/Vol] 87.0 mg/dL Normal 46.8-314.5 [facility] Comment on above: Order Comment: Speci men Type: URINE SPECIMENOrdering Facility: [facility] Address: [address] [place] [address] Performed By: #### U TPR, 99120-9, 38301-0, 34524-8 ####[facility]ORYCLIA [id number] [address] [place] HIGH SENSITIVITY TROPONIN To n 06-15-2021 HIGH SENSITIVITY TAMIKO 23 ng/L High <12 [facility] Comment on above: Order Comment: Speci men Type: BLOOD SPECIMENOrdering Facility: [facility] Address: [address] [place] [address] Result Comment: When assessing risk for acute [...] day MACE. Performed By: #### P JULIANNE, 16183-8, HSTNT ####[facility]ATORYCLIA [id number] [address] STATES OF [facility] Lactate (Bld) [Moles/Vol]on 06-15-2021 Lactate [Moles/Vol] 0.8 mmol/L Normal 0.5-2.2 [facility] Comment on above: Order Comment: Speci men Type: BLOOD SPECIMENOrdering Facility: [facility] Address: [address] [place] [address] Performed By: #### 3 2693-4 ####[facility]CL[facility] [id number] [address] [place] Magnesium [facility]-ncon 06-15 Magnesium [Mass/Vol] 3.0 mg/dL High 1.7-2.3 [facility] Comment on above: Order Comment: Speci men Type: BLOOD SPECIMEN Performed By: #### 2 4321-2, 2777-1, 18155-1 ####[facility]ATORYCLIA [id number] [address] [facility] Natriuretic peptide.B prohormone N-Terminal [Mass/Vol] 265 pg/mL High <125 [facility] Comment on above: Order Comment: Speci men Type: BLOOD SPECIMENOrdering Facility: [facility] Address: [address] [address] Performed By: #### P JULIANNE, 11051-5, HSTNT ####[facility]ORYCLIA [id number] [address] [place] Osmolality Uron 06-15-2021 Osmolality (U) [Osmolality] 606 mosm/kg Normal 50-1,200 [facility] Comment on above: Order Comment: Speci men Type: URINE SPECIMENOrdering Facility: [facility] Address: [address] [place] [address] Performed By: #### 2 695-5 ####[facility]ATORYCLIA [id number] [address] PROCALCITONIN (LAB)on 2021 Procalcitonin [Mass/Vol] 0.21 ng/mL High <0.09 [facility] Comment on above: Order Comment: Speci men Type: BLOOD SPECIMENOrdering Facility: [facility] Address: [address] [place] [address] Result Comment: For a guided interpretation of test results, please visit the Change in Procalcitonin Calculator, [email or web address]. Performed By: #### P JULIANNE, 2951-2 ####[facility]ATORYCLIA [id number] [address] Procalcitonin [Mass/Vol] 0.17 ng/mL High <0.09 [facility] Comment on above: Order Comment: Speci men Type: BLOOD SPECIMENOrdering Facility: [facility] Address: [address] [place] [address] Result Comment: For a guided interpretation of test results, please visit the Change in Procalcitonin Calculator, [email or web address]. Performed By: #### P JULIANNE, 73977-6, HSTNT ####[facility]ATORYCLIA [id number] [address] PROTEIN RANDOM URon 06-15-19 22 Protein (U) [Mass/Vol] 175 mg/dL High 0-20 [facility] Comment on above: Order Comment: Speci men Type: URINE SPECIMENOrdering Facility: [facility] Address: [address] [place] [address] Performed By: #### U TPR, 60350-5, 64987-7, 32406-1 ####[facility]ATORYCLIA [id number] [address] PT panel Coag (PPP)on 2021 INR Coag (PPP) [Relative time] 1.1 {INR} Normal <1.4 [facility] Comment on above: Order Comment: Shira feldman Type: BLOOD SPECIMENOrdering Facility: [facility] Address: [address] [place] [address] Result Comment: Yris min K Antagonist (VKA) Therapeutic Range: INR 2 to 3 (Target INR of 2.5)Note: For patients treated with VKA drugs, such as warfarin, the [place] [employer] 2012 Guideline recommends [...] al. Chest 2012, 141:7S-47SNishimura RA, et al. [facility] 2017, 70: 252-289 Performed By: #### 3 4528-0, 09742-6 ####[facility]ATORYCLIA [id number] [place] [address] [place] PT Coag (PPP) [Time] 11.4 s Normal <13.1 [facility] Comment on above: Order Comment: Shira feldman Type: BLOOD SPECIMENOrdering Facility: [facility] Address: [address] [place], [place] [address] Performed By: #### 3 4528-0, 90382-5 ####[facility]ATORYCLIA [id number] [place] [address] [place] Phosphate SerPl-mCncon 06-15 Phosphate [Mass/Vol] 2.6 mg/dL Low 2.7-4.8 [facility] Comment on above: Order Comment: Shira feldman Type: BLOOD SPECIMEN Performed By: #### 2 4321-2, 2777-1, 70463-3 ####[facility]ATORYCLIA [id number] [place] [address] [place] Sodium ?Tm Ur-sCncon 022 Sodium Unsp time (U) [Moles/Vol] 34 mmol/L Normal 14-216 [facility] Comment on above: Order Comment: Speci men Type: URINE SPECIMENOrdering Facility: [facility] Address: [address] [place] [address] Performed By: #### U TPR, 92820-3, 70928-0, 75118-7 ####[facility]ATORYCLIA [id number] [address] [place] Sodium SerPl-sCncon 06-15-19 22 Sodium [Moles/Vol] 159 mmol/L High 136-144 [facility] Comment on above: Order Comment: Speci men Type: BLOOD SPECIMENOrdering Facility: [facility] Address: [address] [place] [address] Performed By: #### P JULIANNE, 2951-2 ####[facility]ATORYCLIA [id number] [address] [place] THERAPY NTon 06-15-[address] [facility] Urinalysis complete panel (U )on 06-15-2021 Bacteria LM.HPF (Urine sed) [#/Area] None Seen Normal None Seen [facility] Comment on above: Order Comment: Speci men Type: URINE SPECIMENOrdering Facility: [facility] Address: [address] [place] [address] Performed By: #### 2 4356-8 ####[facility]ORYCLIA [id number] [address] [place] Bilirubin Ql (U) Negative Normal Negative [facility] Comment on above: Order Comment: Speci men Type: URINE SPECIMENOrdering Facility: [facility] Address: [address] [place] [address] Performed By: #### 2 4356-8 ####[facility]ORYCLIA [id number] [address] Clarity (Unsp spec) Cloudy Abnormal Clear [facility] Comment on above: Order Comment: Speci men Type: URINE SPECIMENOrdering Facility: [facility] Address: [address] [place] [address] Performed By: #### 2 4356-8 ####[facility]ORYCLIA [id number] [address] Color (U) Yellow Normal Yellow [facility] Comment on above: Order Comment: Speci men Type: URINE SPECIMENOrdering Facility: [facility] Address: [address] [place] [address] Performed By: #### 2 4356-8 ####[facility]ORYCLIA [id number] [address] Epithelial cells LM.HPF (Urine sed) [#/Area] 7.1 /[HPF] Normal [facility] Comment on above: Order Comment: Speci men Type: URINE SPECIMENOrdering Facility: [facility] Address: [address] [place] [address] Performed By: #### 2 4356-8 ####[facility]ORYCLIA [id number] [address] Glucose Test strip (U) [Mass/Vol] Negative Normal Negative [facility] Comment on above: Order Comment: Speci men Type: URINE SPECIMENOrdering Facility: [facility] Address: [address] [place] [address] Performed By: #### 2 4356-8 ####[facility]ATORYCLIA [id number] [address] Granular casts (Urine sed) [#/Area] /[LPF] Abnormal 0 /LPF [facility] Comment on above: Order Comment: Speci men Type: URINE SPECIMENOrdering Facility: [facility] Address: [address] [place] [address] Performed By: #### 2 4356-8 ####[facility]ATORYCLIA [id number] [address] [place] Hemoglobin Ql (U) Moderate Abnormal Negative [facility] Comment on above: Order Comment: Speci men Type: URINE SPECIMENOrdering Facility: [facility] Address: [address] [place] [address] Performed By: #### 2 4356-8 ####[facility]ATORYCLIA [id number] [place] [address] [place] Hyaline casts (Urine sed) [#/Area] /[LPF] Abnormal 0 /LPF [facility] Comment on above: Order Comment: Speci men Type: URINE SPECIMENOrdering Facility: [facility] Address: [address] [place] [address] Performed By: #### 2 4356-8 ####[facility]ORYCLIA [id number] [address] STATES [facility] Ketones Ql (U) Negative Normal Negative [facility] Comment on above: Order Comment: Speci men Type: URINE SPECIMENOrdering Facility: [facility] Address: [address] [place] [address] Performed By: #### 2 4356-8 ####[facility]ATORYCLIA [id number] [address] [place] Leukocyte esterase Test strip Ql (U) Negative Normal Negative [facility] Comment on above: Order Comment: Speci men Type: URINE SPECIMENOrdering Facility: [facility] Address: [address] [place] [address] Performed By: #### 2 4356-8 ####[facility]ATORYCLIA [id number] [place] [address] [place] Nitrite Ql (U) Negative Normal Negative [facility] Comment on above: Order Comment: Speci men Type: URINE SPECIMENOrdering Facility: [facility] Address: [facility] [address] Performed By: #### 2 4356-8 ####[facility]ATORYCLIA [id number] [address] pH (U) 6.0 [pH] Normal 5.0-8.0 [facility] Comment on above: Order Comment: Speci men Type: URINE SPECIMENOrdering Facility: [facility] Address: [address] [place] [address] Performed By: #### 2 4356-8 ####[facility]ATORYCLIA [id number] [address] Protein (U) [Mass/Vol] 100 mg/dL Abnormal Negative [facility] Comment on above: Order Comment: Speci men Type: URINE SPECIMENOrdering Facility: [facility] Address: [address] [place] [address] Performed By: #### 2 4356-8 ####[facility]CL[facility] [id number] [address] STATES [facility] RBC LM.HPF (Urine sed) [#/Area] 0-3 /HPF Normal 0-3 /HPF [facility] Comment on above: Order Comment: Speci men Type: URINE SPECIMENOrdering Facility: [facility] Address: [address] [place] [address] Performed By: #### 2 4356-8 ####[facility]ATORYCLIA [id number] [address] Specific gravity (U) [Rel density] 1.024 Normal 1.005-1.030 [facility] Comment on above: Order Comment: Speci men Type: URINE SPECIMENOrdering Facility: [facility] Address: [address] [place] [address] Performed By: #### 2 4356-8 ####[facility]ATORYCLIA [id number] [address] Urobilinogen Ql (U) 0.2 EU/dL Normal 0.2-1.0 EU/dL [facility] Comment on above: Order Comment: Speci men Type: URINE SPECIMENOrdering Facility: [facility] Address: [address] [place] [address], [place] [address] Performed By: #### 2 4356-8 ####[facility]ATORYCLIA [id number] [address] STATES [facility] WBC LM.HPF (Urine sed) [#/Area] 0-5 /HPF Normal 0-5 /HPF [facility] Comment on above: Order Comment: Speci men Type: URINE SPECIMENOrdering Facility: [facility] Address: [address] [place], [place] [address] [address] Performed By: #### 2 4356-8 ####[facility]ATORYCLIA [id number] [address] OF [facility] XR CHEST 1V FRONTALon 2021 XR CHEST 1V FRONTAL Normal [facility] XR CHEST 1V FRONTAL PORTon 0 06-15-2021 XR CHEST 1V FRONTAL PORT Normal [facility] XR CHEST 1V FRONTAL PORT Normal [facility] aPTT PPPon 06-15-2021 aPTT Coag (PPP) [Time] 30.9 s Normal 23.0-32.4 [facility] Comment on above: Order Comment: Speci men Type: BLOOD SPECIMENOrdering Facility: [facility] Address: [facility] [place] [place] [address] Performed By: #### 3 4528-0, 36533-7 ####[facility]ATORYCLIA [id number] [address] STATES OF [facility] Basic metabolic 2000 panelon 06-14-2021 Anion gap [Moles/Vol] 8 mmol/L Low 9-18 [facility] Comment on above: Order Comment: Speci men Type: BLOOD SPECIMEN Performed By: #### 2 4321-2, 2777-1, 61541-3 ####[facility]ATORYCLIA [id number] [address] STATES OF [facility] Calcium [Mass/Vol] 8.9 mg/dL Normal 8.5-10.2 [facility] Comment on above: Order Comment: Speci men Type: BLOOD SPECIMEN Performed By: #### 2 4321-2, 2776-05, ####[facility]ATORYCLIA [id number] [place], [place] [address] [place] [address] [place] [facility] Chloride [Moles/Vol] 121 mmol/L High 97-105 [facility] Comment on above: Order Comment: Speci men Type: BLOOD SPECIMEN Performed By: #### 2 4321-2, 2776-05, ####[facility]ORYCLIA [id number] [address] [place] CO2 [Moles/Vol] 30 mmol/L Normal 22-30 [facility] Comment on above: Order Comment: Speci men Type: BLOOD SPECIMEN Performed By: #### 2 4321-2, 2776-05, ####[facility]ORYCLIA [id number] [address] STATES OF [facility] Creatinine [Mass/Vol] 0.78 mg/dL Normal 0.73-1.22 [facility] Comment on above: Order Comment: Speci men Type: BLOOD SPECIMEN Performed By: #### 2 4321-2, 2776-05, ####[facility]ORYCLIA [id number] [address] [place] GFR/1.73 sq M.predicted MDRD (S/P/Bld) [Vol rate/Area] mL/min/{1.73_m2} Normal [facility] Comment on above: Order [...] Performed By: #### 2 4321-2, 2776-05, ####[facility]ORYCLIA [id number] [place] [address] [place] Glucose [Mass/Vol] 132 mg/dL High 74-99 [facility] Comment on above: Order Comment: Speci men Type: BLOOD SPECIMEN Result Comment: The [place] [employer] (ADA) provides guidance for cutoff [...] Standards of Medical Care in Diabetes 2016, [place] [employer]. Diabetes Care. 2016.39(Suppl 1). Performed By: #### 2 4321-2, 2776-05, ####[facility]ORYCLIA [id number] [place] [address] [place] Potassium [Moles/Vol] 3.7 mmol/L Normal 3.7-5.1 [facility] Comment on above: Order Comment: Speci men Type: BLOOD SPECIMEN Performed By: #### 2 1-2, 2776-05, ####[facility]ORYCLIA [id number] [place] [address] [place] Sodium [Moles/Vol] 159 mmol/L High 136-144 [facility] Comment on above: Order Comment: Speci men Type: BLOOD SPECIMEN Performed By: #### 2 4321-2, 2776-05, ####[facility]ORYCLIA [id number] [place] [address] [place] Urea nitrogen [Mass/Vol] 35 mg/dL High 9-24 [facility] Comment on above: Order Comment: Speci men Type: BLOOD SPECIMEN Performed By: #### 2 1-2, 2776-05, 04164-0 ####[facility]ORYCLIA [id number] [address] CASE MANAGEMon 06-14-[address] [facility] CBC panel Auto (Bld)on 06-14 Erythrocyte distribution width (RBC) [Ratio] 16.2 % High 11.5-15.0 [facility] Comment on above: Order Comment: Speci men Type: BLOOD SPECIMEN Performed By: #### 5 8410-2 ####[facility]ORYCLIA [id number] [address] Hematocrit (Bld) [Volume fraction] 35.2 % Low 39.0-51.0 [facility] Comment on above: Order Comment: Speci men Type: BLOOD SPECIMEN Performed By: #### 5 8410-2 ####[facility]ORYCLIA [id number] [address] Hemoglobin (Bld) [Mass/Vol] 10.1 g/dL Low 13.0-17.0 [facility] Comment on above: Order Comment: Speci men Type: BLOOD SPECIMEN Performed By: #### 5 8410-2 ####[facility]ORYCLIA [id number] [address] MCH (RBC) [Entitic mass] 27.2 pg Normal 26.0-34.0 [facility] Comment on above: Order Comment: Speci men Type: BLOOD SPECIMEN Performed By: #### 5 8410-2 ####[facility]ORYCLIA [id number] [address] MCHC (RBC) [Mass/Vol] 28.7 g/dL Low 30.5-36.0 [facility] Comment on above: Order Comment: Speci men Type: BLOOD SPECIMEN Performed By: #### 5 8410-2 ####[facility]ORYCLIA [id number] [address] MCV (RBC) [Entitic vol] 94.6 fL Normal 80.0-100.0 [facility] Comment on above: Order Comment: Speci men Type: BLOOD SPECIMEN Performed By: #### 5 8410-2 ####[facility]ORYCLIA [id number] [address] Nucleated RBC (Bld) [#/Vol] 10*3/uL Normal <0.01 [facility] Comment on above: Order Comment: Speci men Type: BLOOD SPECIMEN Performed By: #### 5 8410-2 ####[facility]ORYCLIA [id number] [address] Platelet mean volume (Bld) [Entitic vol] 11.0 fL Normal 9.0-12.7 [facility] Comment on above: Order Comment: Speci men Type: BLOOD SPECIMEN Performed By: #### 5 8410-2 ####[facility]ORYCLIA [id number] [address] Platelets (Bld) [#/Vol] 287 10*3/uL Normal 150-400 [facility] Comment on above: Order Comment: Speci men Type: BLOOD SPECIMEN Performed By: #### 5 8410-2 ####[facility]ORYCLIA [id number] [address] RBC (Bld) [#/Vol] 3.72 10*6/uL Low 4.20-6.00 [facility] Comment on above: Order Comment: Speci men Type: BLOOD SPECIMEN Performed By: #### 5 8410-2 ####[facility]ORYCLIA [id number] [address] WBC (Bld) [#/Vol] 12.23 10*3/uL High 3.70-11.00 [facility] Comment on above: Order Comment: Speci men Type: BLOOD SPECIMEN Performed By: #### 5 8410-2 ####[facility]ORYCLIA [id number] [address] Comprehensive metabolic 2000 panelon 06-14-2021 Albumin [Mass/Vol] 3.1 g/dL Low 3.9-4.9 [facility] Comment on above: Order Comment: Speci men Type: BLOOD SPECIMEN Performed By: #### 2 4323-8, HSTNT, 2776-05, ####[facility]ATORYCLIA [id number] [place], [place] [address] [place] [address] ALP [Catalytic activity/Vol] 72 U/L Normal 38-113 [facility] Comment on above: Order Comment: Speci men Type: BLOOD SPECIMEN Performed By: #### 2 4323-8, HSTNT, 2776-05, ####[facility]ORYCLIA [id number] [address] ALT With P-5'-P [Catalytic activity/Vol] 57 U/L High 10-54 [facility] Comment on above: Order Comment: Speci men Type: BLOOD SPECIMEN Performed By: #### 2 4323-8, HSTNT, 2776-05, ####[facility]ORYCLIA [id number] [address] Anion gap [Moles/Vol] 9 mmol/L Normal 9-18 [facility] Comment on above: Order Comment: Speci men Type: BLOOD SPECIMEN Performed By: #### 2 4323-8, HSTNT, 2776-05, ####[facility]ORYCLIA [id number] [address] AST With P-5'-P [Catalytic activity/Vol] 33 U/L Normal 14-40 [facility] Comment on above: Order Comment: Speci men Type: BLOOD SPECIMEN Performed By: #### 2 4323-8, HSTNT, 2776-05, ####[facility]ORYCLIA [id number] [address] [facility] Bilirubin [Mass/Vol] 0.5 mg/dL Normal 0.2-1.3 [facility] Comment on above: Order Comment: Speci men Type: BLOOD SPECIMEN Performed By: #### 2 4323-8, HSTNT, 2776-05, ####[facility]ORYCL[facility] [id number] [address] STATES OF [facility] Calcium [Mass/Vol] 8.8 mg/dL Normal 8.5-10.2 [facility] Comment on above: Order Comment: Speci men Type: BLOOD SPECIMEN Performed By: #### 2 4323-8, HSTNT, 2776-05, ####[facility]ORYCL[facility] [id number] [address] [place] OF [facility] Chloride [Moles/Vol] 124 mmol/L High 97-105 [facility] Comment on above: Order Comment: Speci men Type: BLOOD SPECIMEN Performed By: #### 2 4323-8, HSTNT, 2776-05, ####[facility]ORYCLIA [id number] [address] STATES OF [facility] CO2 [Moles/Vol] 29 mmol/L Normal 22-30 [facility] Comment on above: Order Comment: Speci men Type: BLOOD SPECIMEN Performed By: #### 2 4323-8, HSTNT, 2776-05, ####[facility]IA [id number] [address] [place] Creatinine [Mass/Vol] 0.73 mg/dL Normal 0.73-1.22 [facility] Comment on above: Order Comment: Speci men Type: BLOOD SPECIMEN Performed By: #### 2 4323-8, HSTNT, 2776-05, ####[facility]ATORYCLIA [id number] [address] [place] GFR/1.73 sq M.predicted MDRD (S/P/Bld) [Vol rate/Area] mL/min/{1.73_m2} Normal [facility] Comment on above: Order [...] Performed By: #### 2 4323-8, HSTNT, 2776-05, ####[facility]ORYCLIA [id number] [place] [address] [place] Glucose [Mass/Vol] 137 mg/dL High 74-99 [facility] Comment on above: Order Comment: Speci men Type: BLOOD SPECIMEN Result Comment: The [place] [employer] (ADA) provides guidance for cutoff [...] Standards of Medical Care in Diabetes 2016, [place] [employer]. Diabetes Care. 2016.39(Suppl 1). Performed By: #### 2 4323-8, HSTNT, 2776-05, ####[facility]ORYCLIA [id number] [place] [address] [place] Potassium [Moles/Vol] 3.6 mmol/L Low 3.7-5.1 [facility] Comment on above: Order Comment: Speci men Type: BLOOD SPECIMEN Performed By: #### 2 4323-8, HSTNT, 2776-05, ####[facility]ORYCLIA [id number] [address] Protein [Mass/Vol] 5.9 g/dL Low 6.3-8.0 [facility] Comment on above: Order Comment: Speci men Type: BLOOD SPECIMEN Performed By: #### 2 4323-8, HSTNT, 2777-1, 91604-6 ####[facility]ORYCLIA [id number] [address] Sodium [Moles/Vol] 162 mmol/L High 136-144 [facility] Comment on above: Order Comment: Speci men Type: BLOOD SPECIMEN Performed By: #### 2 4323-8, HSTNT, 2776-, ####[facility]ORYCLIA [id number] [address] Urea nitrogen [Mass/Vol] 33 mg/dL High 9-24 [facility] Comment on above: Order Comment: Speci men Type: BLOOD SPECIMEN Performed By: #### 2 4323-8, HSTNT, 2776-05, ####[facility]ORYCLIA [id number] [address] HIGH SENSITIVITY TROPONIN To n 06-14-2021 HIGH SENSITIVITY TAMIKO 22 ng/L High <12 [facility] Comment on above: [...] day MACE. Performed By: #### H STNT ####[facility]ORYCLIA [id number] [address] HIGH SENSITIVITY TAMIKO 22 ng/L High <12 [facility] Comment on above: [...] Performed By: #### 2 4323-8, HSTNT, 2776-05, ####[facility]ORYCLIA [id number] [address] Magnesium SerPl-mCncon 06-14 Magnesium [Mass/Vol] 2.9 mg/dL High 1.7-2.3 [facility] Comment on above: Order Comment: Speci men Type: BLOOD SPECIMEN Performed By: #### 2 4323-8, HSTNT, 2776-05, ####[facility]ORYCLIA [id number] [address] Magnesium [Mass/Vol] 3.0 mg/dL High 1.7-2.3 [facility] Comment on above: Order Comment: Speci men Type: BLOOD SPECIMEN Performed By: #### 2 4321-2, 2776-05, ####[facility]ORYCLIA [id number] [address] NURSING PROGon 06-14-[address] [facility] NUTRITIONon 06-14-[address] [facility] Phosphate SerPl-mCncon 06-14 Phosphate [Mass/Vol] 2.4 mg/dL Low 2.7-4.8 [facility] Comment on above: Order Comment: Speci men Type: BLOOD SPECIMEN Performed By: #### 2 4323-8, HSTNT, 2776-05, ####[facility]ORYCLIA [id number] [address] Phosphate [Mass/Vol] 3.2 mg/dL Normal 2.7-4.8 [facility] Comment on above: Order Comment: Speci men Type: BLOOD SPECIMEN Performed By: #### 2 4321-2, 2776-05, ####[facility]ORYCLIA [id number] [place], [place] [address] [place] [address] [place] THERAPY NTon 06-14-[address] [facility] THERAPY NT Normal [facility] THERAPY NT Normal [facility] US DVT LOWER BILon US DVT LOWER RAINER Normal [facility] ALLIED HEALTHon 06-13-[address] [facility] Basic metabolic 2000 panelon 06-13-2021 Anion gap [Moles/Vol] 7 mmol/L Low 9-18 [facility] Comment on above: Order Comment: Speci men Type: BLOOD SPECIMEN Performed By: #### 2 4321-2, , 2776-05 ####[facility]ORYCLIA [id number] [address] STATES OF [facility] Calcium [Mass/Vol] 8.8 mg/dL Normal 8.5-10.2 [facility] Comment on above: Order Comment: Speci men Type: BLOOD SPECIMEN Performed By: #### 2 4321-2, , 2776-05 ####[facility]ORYCLIA [id number] [address] [place] Chloride [Moles/Vol] 120 mmol/L High 97-105 [facility] Comment on above: Order Comment: Speci men Type: BLOOD SPECIMEN Performed By: #### 2 4321-2, , 2776-05 ####[facility]ORYCLIA [id number] [place] [id number] [place] CO2 [Moles/Vol] 28 mmol/L Normal 22-30 [facility] Comment on above: Order Comment: Speci men Type: BLOOD SPECIMEN Performed By: #### 2 4321-2, , 2776-05 ####[facility]ORYCLIA [id number] [place] [address] [place] Creatinine [Mass/Vol] 0.78 mg/dL Normal 0.73-1.22 [facility] Comment on above: Order Comment: Speci [facility] Type: BLOOD SPECIMEN Performed By: #### 2 4321-2, 87538-4, 2777-1 ####[facility]ORYCLIA [id number] [place] [address] [place] GFR/1.73 sq M.predicted MDRD (S/P/Bld) [Vol rate/Area] mL/min/{1.73_m2} Normal [facility] Comment on above: Order [...] actual GFR. Performed By: #### 2 4321-2, 70476-7, 277-1 ####[facility]ATORYCLIA [id number] [place] [address] [place] Glucose [Mass/Vol] 126 mg/dL High 74-99 [facility] Comment on above: Order [facility]: [facility] Type: BLOOD SPECIMEN Result Comment: The [place] Diabetes [employer] (ADA) provides guidance for cutoff [...] Standards of Medical Care in Diabetes 2016, [place] [employer]. Diabetes Care. 2016.39(Suppl 1). Performed By: #### 2 4321-2, , 2776-05 ####[facility]ORYCLIA [id number] [place], [place] [address] [place] [address] [place] [facility] Potassium [Moles/Vol] 3.6 mmol/L Low 3.7-5.1 [facility] Comment on above: Order Comment: Speci men Type: BLOOD SPECIMEN Performed By: #### 2 4321-2, , 2776-05 ####[facility]ORYCLIA [id number] [place], [place] [address] [place] [address] [place] Sodium [Moles/Vol] 155 mmol/L High 136-144 [facility] Comment on above: Order Comment: Speci men Type: BLOOD SPECIMEN Performed By: #### 2 1-2, , 2776-05 ####[facility]ORYCLIA [id number] [place] [address] [place] Urea nitrogen [Mass/Vol] 36 mg/dL High 9-24 [facility] Comment on above: Order Comment: Speci men Type: BLOOD SPECIMEN Performed By: #### 2 1-2, , 2776-05 ####[facility]ORYCLIA [id number] [address] STATES OF [facility] Anion gap [Moles/Vol] 6 mmol/L Low 9-18 [facility] Comment on above: Order Comment: Speci men Type: BLOOD SPECIMEN Performed By: #### 2 4321-2, 2776-05, ####[facility]ORYCLIA [id number] [place] [address] [place] Calcium [Mass/Vol] 6.5 mg/dL Low 8.5-10.2 [facility] Comment on above: Order Comment: Speci men Type: BLOOD SPECIMEN Performed By: #### 2 4321-2, 2776-05, ####[facility]ORYCLIA [id number] [place] [address] [place] Chloride [Moles/Vol] 124 mmol/L High 97-105 [facility] Comment on above: Order Comment: Speci men Type: BLOOD SPECIMEN Performed By: #### 2 4321-2, 2776-05, ####[facility]ORYCLIA [id number] [place] [address] [place] CO2 [Moles/Vol] 24 mmol/L Normal 22-30 [facility] Comment on above: Order Comment: Speci men Type: BLOOD SPECIMEN Performed By: #### 2 4321-2, 2776-05, ####[facility]ORYCLIA [id number] [place] [address] [place] Creatinine [Mass/Vol] 0.61 mg/dL Low 0.73-1.22 [facility] Comment on above: Order Comment: Speci men Type: BLOOD SPECIMEN Performed By: #### 2 4321-2, 2776-05, ####[facility]ORYCLIA [id number] [address] [place] GFR/1.73 sq M.predicted MDRD (S/P/Bld) [Vol rate/Area] mL/min/{1.73_m2} Normal [facility] Comment on above: Order [...] Performed By: #### 2 4321-2, 2776-05, ####[facility]ORYCLIA [id number] [place] [address] [place] Glucose [Mass/Vol] 100 mg/dL High 74-99 [facility] Comment on above: Order Comment: Speci men Type: BLOOD SPECIMEN Result Comment: The [place] [employer] (ADA) provides guidance for cutoff [...] Standards of Medical Care in Diabetes 2016, [place] [employer]. Diabetes Care. 2016.39(Suppl 1). Performed By: #### 2 4321-2, 2776-05, ####[facility]ORYCLIA [id number] [address] STATES OF [facility] Potassium [Moles/Vol] 2.7 mmol/L Low 3.7-5.1 [facility] Comment on above: Order Comment: Speci men Type: BLOOD SPECIMEN Performed By: #### 2 4321-2, 2776-05, ####[facility]ORYCLIA [id number] [address] STATES [facility] Sodium [Moles/Vol] 154 mmol/L High 136-144 [facility] Comment on above: Order Comment: Speci men Type: BLOOD SPECIMEN Performed By: #### 2 4321-2, 2776-05, ####[facility]ORYCLIA [id number] [place], [place] [address] [place] [address] [place] Urea nitrogen [Mass/Vol] 29 mg/dL High 9-24 [facility] Comment on above: Order Comment: Speci men Type: BLOOD SPECIMEN Performed By: #### 2 4321-2, 2776-05, ####[facility]ORYCLIA [id number] [address] OF [facility] CASE MANAGEMon 06-13-[address] [facility] CBC panel Auto (Bld)on 06-13 Erythrocyte distribution width (RBC) [Ratio] 15.9 % High 11.5-15.0 [facility] Comment on above: Order Comment: Speci men Type: BLOOD SPECIMEN Performed By: #### 5 8410-2 ####[facility]ORYCLIA [id number] [address] Hematocrit (Bld) [Volume fraction] 34.3 % Low 39.0-51.0 [facility] Comment on above: Order Comment: Speci men Type: BLOOD SPECIMEN Performed By: #### 5 8410-2 ####[facility]ORYCLIA [id number] [address] Hemoglobin (Bld) [Mass/Vol] 9.9 g/dL Low 13.0-17.0 [facility] Comment on above: Order Comment: Speci men Type: BLOOD SPECIMEN Performed By: #### 5 8410-2 ####[facility]ORYCLIA [id number] [address] MCH (RBC) [Entitic mass] 27.3 pg Normal 26.0-34.0 [facility] Comment on above: Order Comment: Speci men Type: BLOOD SPECIMEN Performed By: #### 5 8410-2 ####[facility]ORYCLIA [id number] [address] MCHC (RBC) [Mass/Vol] 28.9 g/dL Low 30.5-36.0 [facility] Comment on above: Order Comment: Speci men Type: BLOOD SPECIMEN Performed By: #### 5 8410-2 ####[facility]CLIA [id number] [address] MCV (RBC) [Entitic vol] 94.5 fL Normal 80.0-100.0 [facility] Comment on above: Order Comment: Speci men Type: BLOOD SPECIMEN Performed By: #### 5 8410-2 ####[facility]CLIA [id number] [address] Nucleated RBC (Bld) [#/Vol] 10*3/uL Normal <0.01 [facility] Comment on above: Order Comment: Speci men Type: BLOOD SPECIMEN Performed By: #### 5 8410-2 ####[facility]ORYCLIA [id number] [address] Platelet mean volume (Bld) [Entitic vol] 11.3 fL Normal 9.0-12.7 [facility] Comment on above: Order Comment: Speci men Type: BLOOD SPECIMEN Performed By: #### 5 8410-2 ####[facility]CLIA [id number] [address] Platelets (Bld) [#/Vol] 269 10*3/uL Normal 150-400 [facility] Comment on above: Order Comment: Speci men Type: BLOOD SPECIMEN Performed By: #### 5 8410-2 ####[facility]ORYCLIA [id number] [address] RBC (Bld) [#/Vol] 3.63 10*6/uL Low 4.20-6.00 [facility] Comment on above: Order Comment: Speci men Type: BLOOD SPECIMEN Performed By: #### 5 8410-2 ####[facility]ORYCLIA [id number] [address] WBC (Bld) [#/Vol] 12.77 10*3/uL High 3.70-11.00 [facility] Comment on above: Order Comment: Speci men Type: BLOOD SPECIMEN Performed By: #### 5 8410-2 ####[facility]ORYCLIA [id number] [address] Gas and Carbon monoxide pane l (BldV)on 06-13-2021 Base excess Calc (BldV) [Moles/Vol] 5.7 mmol/L High 0-2 [facility] Comment on above: Order Comment: Speci men Type: VENOUS BLOOD SPECIMEN Performed By: #### 2 4344-4 ####[facility]CLIA [id number] [address] Body temperature 99.5 [degF] Normal [facility] Comment on above: Order Comment: Speci men Type: VENOUS BLOOD SPECIMEN Performed By: #### 2 4344-4 ####[facility]ORATORYCLIA [id number] [address] CALCIUM IONIZED, PH CORRECTED 1.24 mmol/L Normal 1.08-1.30 [facility] Comment on above: Order Comment: Speci men Type: VENOUS BLOOD SPECIMEN Performed By: #### 2 4344-4 ####[facility]ORYCLIA [id number] [address] Calcium.ionized (BldV) [Mass/Vol] 1.23 mmol/L Normal 1.08-1.30 [facility] Comment on above: Order Comment: Speci men Type: VENOUS BLOOD SPECIMEN Performed By: #### 2 4344-4 ####[facility]ORYCLIA [id number] [address] Carboxyhemoglobin (BldV) [Mass fraction] 1.2 % Normal 0.0-2.0 [facility] Comment on above: Order Comment: Speci men Type: VENOUS BLOOD SPECIMEN Result Comment: Carb oxyhemoglobin Reference Range for Smokers: 2.0-8.0% Performed By: #### 2 4344-4 ####[facility]CLIA [id number] [address] CO2 (BldV) [Partial pressure] 48 mm[Hg] Normal 42-55 [facility] Comment on above: Order Comment: Speci men Type: VENOUS BLOOD SPECIMEN Performed By: #### 2 4344-4 ####[facility]CLIA [id number] [address] CO2 [Moles/Vol] 28.2 mmol/L Normal 25-29 [facility] Comment on above: Order Comment: Speci men Type: VENOUS BLOOD SPECIMEN Performed By: #### 2 4344-4 ####[facility]ORYCLIA [id number] [address] CO2 adjusted to patient's actual temperature (BldV) [Partial pressure] 49 mmHg Normal 42-55 [facility] Comment on above: Order Comment: Speci men Type: VENOUS BLOOD SPECIMEN Performed By: #### 2 4344-4 ####[facility]CLIA [id number] [address] Glucose [Mass/Vol] 131 mg/dL High 60-105 [facility] Comment on above: Order Comment: Speci men Type: VENOUS BLOOD SPECIMEN Performed By: #### 2 4344-4 ####[facility]CLIA [id number] [address] HCO3 (Bld) [Moles/Vol] 30.6 mmol/L High 24-28 [facility] Comment on above: Order Comment: Speci men Type: VENOUS BLOOD SPECIMEN Performed By: #### 2 4344-4 ####[facility]CLIA [id number] [address] Hematocrit (Bld) [Volume fraction] 32.8 % Low 39.0-51.0 [facility] Comment on above: Order Comment: Speci men Type: VENOUS BLOOD SPECIMEN Performed By: #### 2 4344-4 ####[facility]CLIA [id number] [address] Hemoglobin (Bld) [Mass/Vol] 10.6 g/dL Low 13.0-17.0 [facility] Comment on above: Order Comment: Speci men Type: VENOUS BLOOD SPECIMEN Performed By: #### 2 4344-4 ####[facility]ORYCLIA [id number] [address] OF [place] LITERS 6 Liters/min Normal [facility] Comment on above: Order Comment: Speci men Type: VENOUS BLOOD SPECIMEN Performed By: #### 2 4344-4 ####[facility]ORYCLIA [id number] [place], [place] [address] [place] [address] [place] Methemoglobin (Bld) [Mass fraction] 1.0 % Normal 0.0-1.5 [facility] Comment on above: Order Comment: Speci men Type: VENOUS BLOOD SPECIMEN Performed By: #### 2 4344-4 ####[facility]CLIA [id number] [address] O2 THERAPY NC = Nasal Cannula Normal [facility] Comment on above: Order Comment: Speci men Type: VENOUS BLOOD SPECIMEN Performed By: #### 2 4344-4 ####[facility]CLIA [id number] [address] Oxygen (BldV) [Partial pressure] 42 mm[Hg] Normal 35-45 [facility] Comment on above: Order Comment: Speci men Type: VENOUS BLOOD SPECIMEN Performed By: #### 2 4344-4 ####[facility]CLIA [id number] [address] Oxygen adjusted to patient's actual temperature (BldV) [Partial pressure] 43.8 mmHg Normal 35-45 [facility] Comment on above: Order Comment: Speci men Type: VENOUS BLOOD SPECIMEN Performed By: #### 2 4344-4 ####[facility]CLIA [id number] [address] OF [place] Oxygen saturation in Blood 76.7 % Normal 60-85 [facility] Comment on above: Order Comment: Speci men Type: VENOUS BLOOD SPECIMEN Performed By: #### 2 4344-4 ####[facility]CLIA [id number] [address] Oxyhemoglobin (BldV) [Mass fraction] 75 % Normal 60-85 [facility] Comment on above: Order Comment: Speci men Type: VENOUS BLOOD SPECIMEN Performed By: #### 2 4344-4 ####[facility]ORYCLIA [id number] [address] pH (BldV) 7.42 [pH] Normal 7.32-7.42 [facility] Comment on above: Order Comment: Speci men Type: VENOUS BLOOD SPECIMEN Performed By: #### 2 4344-4 ####[facility]CLIA [id number] [address] pH adjusted to patient's actual temperature (BldV) 7.41 Normal 7.32-7.42 [facility] Comment on above: Order Comment: Speci men Type: VENOUS BLOOD SPECIMEN Performed By: #### 2 4344-4 ####[facility]ORYCLIA [id number] [address] Potassium [Moles/Vol] 3.5 mmol/L Normal 3.5-5.0 [facility] Comment on above: Order Comment: Speci men Type: VENOUS BLOOD SPECIMEN Performed By: #### 2 4344-4 ####[facility]ORYCLIA [id number] [address] STATES OF [facility] Sodium [Moles/Vol] 157 mmol/L High 136-144 [facility] Comment on above: Order Comment: Speci men Type: VENOUS BLOOD SPECIMEN Performed By: #### 2 4344-4 ####[facility]ORYCLIA [id number] [address] [place] Magnesium SerPl-mCncon 06-13 Magnesium [Mass/Vol] 3.0 mg/dL High 1.7-2.3 [facility] Comment on above: Order Comment: Speci men Type: BLOOD SPECIMEN Performed By: #### 2 4321-2, 37599-6, 2776-05 ####[facility]ORYCLIA [id number] [address] OF [facility] Magnesium [Mass/Vol] 2.2 mg/dL Normal 1.7-2.3 [facility] Comment on above: Order Comment: Speci men Type: BLOOD SPECIMEN Performed By: #### 2 4321-2, 2776, ####[facility]ORYCLIA [id number] [place] [address] [place] Phosphate SerPl-mCncon 06-13 Phosphate [Mass/Vol] 2.2 mg/dL Low 2.7-4.8 [facility] Comment on above: Order Comment: Speci men Type: BLOOD SPECIMEN Performed By: #### 2 4321-2, , 2776-05 ####[facility]ORYCLIA [id number] [place] [address] [place] OF [facility] Phosphate [Mass/Vol] 1.8 mg/dL Low 2.7-4.8 [facility] Comment on above: Order Comment: Speci men Type: BLOOD SPECIMEN Performed By: #### 2 4321-2, 2776-05, ####[facility]ORYCLIA [id number] [address] STATES [place] XR CHEST 1V FRONTALon 2021 XR CHEST 1V FRONTAL Normal [facility] ALLIED HEALTHon 06-12-[address] [facility] BRIEF OP NOTon 06-12-[address] Normal [facility] Bacteria Fld Culton 06-12-19 22 Bacteria identified Cx Nom (Body fld) CULTURE, BODY FLD: No growth 5 days GRAM STAIN: No organisms seen Moderate Polymorphonuclear leukocytes Normal [facility] Comment on above: Performed By: #### 6 11-4 ####[facility]ORYCLIA [id number] [place] [address] [place] Basic metabolic 2000 panelon 06-12-2021 Anion gap [Moles/Vol] 6 mmol/L Low 9-18 [facility] Comment on above: Order Comment: Speci men Type: BLOOD SPECIMEN Performed By: #### 2 777-1, 96259-7, ####[facility]ORYCLIA [id number] [place] [address] [place] Calcium [Mass/Vol] 8.7 mg/dL Normal 8.5-10.2 [facility] Comment on above: Order Comment: Speci men Type: BLOOD SPECIMEN Performed By: #### 2 777-1, 64711-5, ####[facility]ORYCLIA [id number] [address] Chloride [Moles/Vol] 118 mmol/L High 97-105 [facility] Comment on above: Order Comment: Speci men Type: BLOOD SPECIMEN Performed By: #### 2 777-1, 53426-3, ####[facility]ORYCLIA [id number] [address] [place] CO2 [Moles/Vol] 28 mmol/L Normal 22-30 [facility] Comment on above: Order Comment: Speci men Type: BLOOD SPECIMEN Performed By: #### 2 777-1, 69948-4, ####[facility]ORYCLIA [id number] [address] [place] Creatinine [Mass/Vol] 0.77 mg/dL Normal 0.73-1.22 [facility] Comment on above: Order Comment: Speci men Type: BLOOD SPECIMEN Performed By: #### 2 777-1, , ####[facility]ORYCLIA [id number] [address] [place] GFR/1.73 sq M.predicted MDRD (S/P/Bld) [Vol rate/Area] mL/min/{1.73_m2} Normal [facility] Comment on above: Order [...] Performed By: #### 2 777-1, , ####[facility]ORYCLIA [id number] [place] [address] [place] Glucose [Mass/Vol] 116 mg/dL High 74-99 [facility] Comment on above: Order Comment: Speci men Type: BLOOD SPECIMEN Result Comment: The [place] [employer] (ADA) provides guidance for cutoff [...] Standards of Medical Care in Diabetes 2016, [place] [employer]. Diabetes Care. 2016.39(Suppl 1). Performed By: #### 2 777-1, , ####[facility]ORYCLIA [id number] [place] [address] [place] Potassium [Moles/Vol] 4.0 mmol/L Normal 3.7-5.1 [facility] Comment on above: Order Comment: Speci men Type: BLOOD SPECIMEN Performed By: #### 2 777-1, , ####[facility]ORY[facility] [id number] [place] [address] [place] Sodium [Moles/Vol] 152 mmol/L High 136-144 [facility] Comment on above: Order Comment: Speci men Type: BLOOD SPECIMEN Performed By: #### 2 777-1, , ####[facility]ORY[facility] [id number] [place] [address] [place] Urea nitrogen [Mass/Vol] 34 mg/dL High 9-24 [facility] Comment on above: Order Comment: Speci men Type: BLOOD SPECIMEN Performed By: #### 2 777-1, 05445-1, 39792-9 ####[facility]ATORYCLIA [id number] [address] CBC panel Auto (Bld)on 06-12 Erythrocyte distribution width (RBC) [Ratio] 16.1 % High 11.5-15.0 [facility] Comment on above: Order Comment: Speci men Type: BLOOD SPECIMEN Performed By: #### 5 8410-2 ####[facility]ORYCLIA [id number] [address] Hematocrit (Bld) [Volume fraction] 32.8 % Low 39.0-51.0 [facility] Comment on above: Order Comment: Speci men Type: BLOOD SPECIMEN Performed By: #### 5 8410-2 ####[facility]ORYCLIA [id number] [address] Hemoglobin (Bld) [Mass/Vol] 9.9 g/dL Low 13.0-17.0 [facility] Comment on above: Order Comment: Speci men Type: BLOOD SPECIMEN Performed By: #### 5 8410-2 ####[facility]ORYCLIA [id number] [address] MCH (RBC) [Entitic mass] 28.4 pg Normal 26.0-34.0 [facility] Comment on above: Order Comment: Speci men Type: BLOOD SPECIMEN Performed By: #### 5 8410-2 ####[facility]ORYCLIA [id number] [address] MCHC (RBC) [Mass/Vol] 30.2 g/dL Low 30.5-36.0 [facility] Comment on above: Order Comment: Speci men Type: BLOOD SPECIMEN Performed By: #### 5 8410-2 ####[facility]ORYCLIA [id number] [address] MCV (RBC) [Entitic vol] 94.3 fL Normal 80.0-100.0 [facility] Comment on above: Order Comment: Speci men Type: BLOOD SPECIMEN Performed By: #### 5 8410-2 ####[facility]ORYCLIA [id number] [address] Nucleated RBC (Bld) [#/Vol] 10*3/uL Normal <0.01 [facility] Comment on above: Order Comment: Speci men Type: BLOOD SPECIMEN Performed By: #### 5 8410-2 ####[facility]ORYCLIA [id number] [address] Platelet mean volume (Bld) [Entitic vol] 11.2 fL Normal 9.0-12.7 [facility] Comment on above: Order Comment: Speci men Type: BLOOD SPECIMEN Performed By: #### 5 8410-2 ####[facility]ORYCLIA [id number] [address] Platelets (Bld) [#/Vol] 218 10*3/uL Normal 150-400 [facility] Comment on above: Order Comment: Speci men Type: BLOOD SPECIMEN Performed By: #### 5 8410-2 ####[facility]ORYCLIA [id number] [address] RBC (Bld) [#/Vol] 3.48 10*6/uL Low 4.20-6.00 [facility] Comment on above: Order Comment: Speci men Type: BLOOD SPECIMEN Performed By: #### 5 8410-2 ####[facility]ORYCLIA [id number] [address] WBC (Bld) [#/Vol] 13.33 10*3/uL High 3.70-11.00 [facility] Comment on above: Order Comment: Speci men Type: BLOOD SPECIMEN Performed By: #### 5 8410-2 ####[facility]ORYCLIA [id number] [address] CONSULT PROGon 06-12-[address] [facility] CT DRN PL[address] PERIT/RETROP FL BIon 06-12-[address] PERIT/RETROP FL BI Normal [facility] HISTORY PHYSICALon HISTORY PHYSICAL Normal [facility] Magnesium SerPl-mCncon 06-12 Magnesium [Mass/Vol] 2.7 mg/dL High 1.7-2.3 [facility] Comment on above: Order Comment: Speci men Type: BLOOD SPECIMEN Performed By: #### 2 777-1, 29185-3, 63944-6 ####[facility]ORYCLIA [id number] [address] PT panel Coag (PPP)on 2021 INR Coag (PPP) [Relative time] 1.1 {INR} Normal 0.9-1.3 [facility] Comment on above: Order Comment: Speci men Type: BLOOD SPECIMEN Result Comment: Yris min K Antagonist (VKA) Therapeutic Range: INR 2 to 3 (Target INR of 2.5)Note: For patients treated with VKA drugs, such as warfarin, the [place] [employer] 2012 Guideline recommends [...] al. Chest 2012, 141:7S-47SNishimura RA, et al. [facility] 2017, 70: 252-289 Performed By: #### 3 4528-0 ####[facility]ATORYCLIA [id number] [place] [id number] [facility] PT Coag (PPP) [Time] 11.9 s Normal 9.7-13.0 [facility] Comment on above: Order Comment: Speci men Type: BLOOD SPECIMEN Performed By: #### 3 4528-0 ####[facility]ORYCLIA [id number] [address] Phosphate SerPl-mCncon 06-12 Phosphate [Mass/Vol] 2.2 mg/dL Low 2.7-4.8 [facility] Comment on above: Order Comment: Speci men Type: BLOOD SPECIMEN Performed By: #### 2 777-1, 61862-9, 80480-2 ####[facility]ORYCLIA [id number] [address] XR ABDOMEN 1V SUPINEon 06-12 XR ABDOMEN 1V SUPINE Normal [facility] ALLIED HEALTHon 06-11-[address] [facility] Bacteria Bld Culton 06-11-19 22 Bacteria identified Cx Nom (Bld) CULTURE, BLOOD: No growth [address] [facility] Comment on above: Performed By: #### 6 00-7 ####[facility]ORYCLIA [id number] [address] Bacteria identified Cx Nom (Bld) CULTURE, BLOOD: No growth [address] [facility] Comment on above: Performed By: #### 6 00-7 ####[facility]ORYCLIA [id number] [address] Bacteria Ur Culton 2 Bacteria identified Cx Nom (U) CULTURE, URINE: No growth (<1,000 CFU/ml) [facility] Comment on above: Performed By: #### 6 30-4 ####[facility]ORYCLIA [id number] [address] Basic metabolic 2000 panelon 06-11-2021 Anion gap [Moles/Vol] 9 mmol/L Normal 9-18 [facility] Comment on above: Order Comment: Speci men Type: BLOOD SPECIMEN Performed By: #### 1 9123-9, 2777, 83948-5 ####[facility]ORYCLIA [id number] [address] STATES [facility] Calcium [Mass/Vol] 8.5 mg/dL Normal 8.5-10.2 [facility] Comment on above: Order Comment: Speci men Type: BLOOD SPECIMEN Performed By: #### 1 9123-9, 2777, 25013-1 ####[facility]ORYCLIA [id number] [address] Chloride [Moles/Vol] 118 mmol/L High 97-105 [facility] Comment on above: Order Comment: Speci men Type: BLOOD SPECIMEN Performed By: #### 1 9123-9, 2776-05, ####[facility]ORYCLIA [id number] [address] CO2 [Moles/Vol] 27 mmol/L Normal 22-30 [facility] Comment on above: Order Comment: Speci men Type: BLOOD SPECIMEN Performed By: #### 1 9123-9, 2776-05, ####[facility]ATORYCLIA [id number] [address] STATES OF [facility] Creatinine [Mass/Vol] 0.75 mg/dL Normal 0.73-1.22 [facility] Comment on above: Order Comment: Speci men Type: BLOOD SPECIMEN Performed By: #### 1 9123-9, 27711-04, ####[facility]ORYCLIA [id number] [address] [place] GFR/1.73 sq M.predicted MDRD (S/P/Bld) [Vol rate/Area] mL/min/{1.73_m2} Normal [facility] Comment on above: Order [...] GFR. Performed By: #### 1 9123-9, 2777-, 42589-0 ####[facility]ATORYCLIA [id number] [address] OF [facility] Glucose [Mass/Vol] 142 mg/dL High 74-99 [facility] Comment on above: Order Comment: Speci men Type: BLOOD SPECIMEN Result Comment: The [place] [employer] (ADA) provides guidance for cutoff [...] Standards of Medical Care in Diabetes 2016, [place] [employer]. Diabetes Care. 2016.39(Suppl 1). Performed By: #### 1 9123-9, 2777, 17706-4 ####[facility]ORYCLIA [id number] [address] STATES OF [facility] Potassium [Moles/Vol] 3.6 mmol/L Low 3.7-5.1 [facility] Comment on above: Order Comment: Speci men Type: BLOOD SPECIMEN Performed By: #### 1 9123-9, 2777, 34351-6 ####[facility]ORYCLIA [id number] [address] STATES OF [facility] Sodium [Moles/Vol] 154 mmol/L High 136-144 [facility] Comment on above: Order Comment: Speci men Type: BLOOD SPECIMEN Performed By: #### 1 9123-9, 2777-1, 55012-7 ####[facility]ORYCLIA [id number] [address] Urea nitrogen [Mass/Vol] 31 mg/dL High 9-24 [facility] Comment on above: Order Comment: Speci men Type: BLOOD SPECIMEN Performed By: #### 1 9123-9, 2777-1, 40636-9 ####[facility]ATORYCLIA [id number] [address] C diff Tox gens Stl Ql MEGAN+p robeon 06-11-2021 C. difficile toxin genes MEGAN+probe Ql (Stl) Negative Normal Negative for C. difficile toxin by PCR [facility] Comment on above: Order Comment: Speci men Type: STOOL SPECIMEN Performed By: #### 5 4067-4 ####[facility]ORYCLIA [id number] [address] STATES [facility] CBC W Auto Differential pane l (Bld)on 06-11-2021 Basophils (Bld) [#/Vol] 0.03 10*3/uL Normal <0.11 [facility] Comment on above: Order Comment: Speci men Type: BLOOD SPECIMEN Performed By: #### 5 7021-8 ####[facility]ORYCLIA [id number] [address] Basophils/100 WBC (Bld) 0.2 % Normal [facility] Comment on above: Order Comment: Speci men Type: BLOOD SPECIMEN Performed By: #### 5 7021-8 ####[facility]ORYCLIA [id number] [address] Differential cell count method Nom (Bld) Auto Normal [facility] Comment on above: Order Comment: Speci men Type: BLOOD SPECIMEN Performed By: #### 5 7021-8 ####[facility]ORYCLIA [id number] [address] STATES [facility] Eosinophils (Bld) [#/Vol] 0.19 10*3/uL Normal <0.46 [facility] Comment on above: Order Comment: Speci men Type: BLOOD SPECIMEN Performed By: #### 5 7021-8 ####[facility]ORATORYCLIA [id number] [address] Eosinophils/100 WBC (Bld) 1.5 % Normal [facility] Comment on above: Order Comment: Speci men Type: BLOOD SPECIMEN Performed By: #### 5 7021-8 ####[facility]ORYCLIA [id number] [address] Erythrocyte distribution width (RBC) [Ratio] 16.3 % High 11.5-15.0 [facility] Comment on above: Order Comment: Speci men Type: BLOOD SPECIMEN Performed By: #### 5 7021-8 ####[facility]ATORYCLIA [id number] [address] Hematocrit (Bld) [Volume fraction] 32.1 % Low 39.0-51.0 [facility] Comment on above: Order Comment: Speci men Type: BLOOD SPECIMEN Performed By: #### 5 7021-8 ####[facility]ORYCLIA [id number] [address] Hemoglobin (Bld) [Mass/Vol] 9.3 g/dL Low 13.0-17.0 [facility] Comment on above: Order Comment: Speci men Type: BLOOD SPECIMEN Performed By: #### 5 7021-8 ####[facility]ORATORYCLIA [id number] [address] IMMATURE GRAN % 0.6 % Normal [facility] Comment on above: Order Comment: Speci men Type: BLOOD SPECIMEN Performed By: #### 5 7021-8 ####[facility]ORYCLIA [id number] [address] IMMATURE GRAN ABS 0.08 k/uL Normal <0.10 [facility] Comment on above: Order Comment: Speci men Type: BLOOD SPECIMEN Performed By: #### 5 7021-8 ####[facility]ORYCLIA [id number] [address] Lymphocytes (Bld) [#/Vol] 1.65 10*3/uL Normal 1.00-4.00 [facility] Comment on above: Order Comment: Speci men Type: BLOOD SPECIMEN Performed By: #### 5 7021-8 ####[facility]ORYCLIA [id number] [address] Lymphocytes/100 WBC (Bld) 12.8 % Normal [facility] Comment on above: Order Comment: Speci men Type: BLOOD SPECIMEN Performed By: #### 5 7021-8 ####[facility]ORYCLIA [id number] [address] MCH (RBC) [Entitic mass] 27.2 pg Normal 26.0-34.0 [facility] Comment on above: Order Comment: Speci men Type: BLOOD SPECIMEN Performed By: #### 5 7021-8 ####[facility]ORYCLIA [id number] [address] MCHC (RBC) [Mass/Vol] 29.0 g/dL Low 30.5-36.0 [facility] Comment on above: Order Comment: Speci men Type: BLOOD SPECIMEN Performed By: #### 5 7021-8 ####[facility]ORYCLIA [id number] [address] MCV (RBC) [Entitic vol] 93.9 fL Normal 80.0-100.0 [facility] Comment on above: Order Comment: Speci men Type: BLOOD SPECIMEN Performed By: #### 5 7021-8 ####[facility]ORYCLIA [id number] [address] Monocytes (Bld) [#/Vol] 0.68 10*3/uL Normal <0.87 [facility] Comment on above: Order Comment: Speci men Type: BLOOD SPECIMEN Performed By: #### 5 7021-8 ####[facility]ORYCLIA [id number] [address] Monocytes/100 WBC (Bld) 5.3 % Normal [facility] Comment on above: Order Comment: Speci men Type: BLOOD SPECIMEN Performed By: #### 5 7021-8 ####[facility]ORYCLIA [id number] [address] Neutrophils (Bld) [#/Vol] 10.22 10*3/uL High 1.45-7.50 [facility] Comment on above: Order Comment: Speci men Type: BLOOD SPECIMEN Performed By: #### 5 7021-8 ####[facility]ORYCLIA [id number] [address] Neutrophils/100 WBC (Bld) 79.6 % Normal [facility] Comment on above: Order Comment: Speci men Type: BLOOD SPECIMEN Performed By: #### 5 7021-8 ####[facility]ORYCLIA [id number] [address] Nucleated RBC (Bld) [#/Vol] 10*3/uL Normal <0.01 [facility] Comment on above: Order Comment: Speci men Type: BLOOD SPECIMEN Performed By: #### 5 7021-8 ####[facility]ORYCLIA [id number] [address] Nucleated RBC/100 WBC (Bld) [Ratio] 0.0 /[address] [facility] Comment on above: Order Comment: Speci men Type: BLOOD SPECIMEN Performed By: #### 5 7021-8 ####[facility]ORYCLIA [id number] [address] Platelet mean volume (Bld) [Entitic vol] 11.1 fL Normal 9.0-12.7 [facility] Comment on above: Order Comment: Speci men Type: BLOOD SPECIMEN Performed By: #### 5 7021-8 ####[facility]ATORYCLIA [id number] [address] Platelets (Bld) [#/Vol] 188 10*3/uL Normal 150-400 [facility] Comment on above: Order Comment: Speci men Type: BLOOD SPECIMEN Performed By: #### 5 7021-8 ####[facility]ORYCLIA [id number] [address] RBC (Bld) [#/Vol] 3.42 10*6/uL Low 4.20-6.00 [facility] Comment on above: Order Comment: Speci men Type: BLOOD SPECIMEN Performed By: #### 5 7021-8 ####[facility]ORYCLIA [id number] [address] WBC (Bld) [#/Vol] 12.85 10*3/uL High 3.70-11.00 [facility] Comment on above: Order Comment: Speci men Type: BLOOD SPECIMEN Performed By: #### 5 7021-8 ####[facility]ORYCLIA [id number] [address] CBC panel Auto (Bld)on 06-11 Erythrocyte distribution width (RBC) [Ratio] 16.2 % High 11.5-15.0 [facility] Comment on above: Order Comment: Speci men Type: BLOOD SPECIMEN Performed By: #### 5 8410-2 ####[facility]ORYCLIA [id number] [address] Hematocrit (Bld) [Volume fraction] 34.5 % Low 39.0-51.0 [facility] Comment on above: Order Comment: Speci men Type: BLOOD SPECIMEN Performed By: #### 5 8410-2 ####[facility]ORYCLIA [id number] [address] Hemoglobin (Bld) [Mass/Vol] 10.3 g/dL Low 13.0-17.0 [facility] Comment on above: Order Comment: Speci men Type: BLOOD SPECIMEN Performed By: #### 5 8410-2 ####[facility]ORYCLIA [id number] [address] MCH (RBC) [Entitic mass] 28.1 pg Normal 26.0-34.0 [facility] Comment on above: Order Comment: Speci men Type: BLOOD SPECIMEN Performed By: #### 5 8410-2 ####[facility]ORYCLIA [id number] [address] MCHC (RBC) [Mass/Vol] 29.9 g/dL Low 30.5-36.0 [facility] Comment on above: Order Comment: Speci men Type: BLOOD SPECIMEN Performed By: #### 5 8410-2 ####[facility]ORYCLIA [id number] [address] MCV (RBC) [Entitic vol] 94.3 fL Normal 80.0-100.0 [facility] Comment on above: Order Comment: Speci men Type: BLOOD SPECIMEN Performed By: #### 5 8410-2 ####[facility]ORYCLIA [id number] [address] Nucleated RBC (Bld) [#/Vol] 10*3/uL Normal <0.01 [facility] Comment on above: Order Comment: Speci men Type: BLOOD SPECIMEN Performed By: #### 5 8410-2 ####[facility]ORYCLIA [id number] [address] Platelet mean volume (Bld) [Entitic vol] 10.9 fL Normal 9.0-12.7 [facility] Comment on above: Order Comment: Speci men Type: BLOOD SPECIMEN Performed By: #### 5 8410-2 ####[facility]ORYCLIA [id number] [address] Platelets (Bld) [#/Vol] 210 10*3/uL Normal 150-400 [facility] Comment on above: Order Comment: Speci men Type: BLOOD SPECIMEN Performed By: #### 5 8410-2 ####[facility]ATORYCLIA [id number] [place], [place] [id number] [place] [address] [place] [facility] RBC (Bld) [#/Vol] 3.66 10*6/uL Low 4.20-6.00 [facility] Comment on above: Order Comment: Speci men Type: BLOOD SPECIMEN Performed By: #### 5 8410-2 ####[facility]ORYCLIA [id number] [address] STATES OF [facility] WBC (Bld) [#/Vol] 13.03 10*3/uL High 3.70-11.00 [facility] Comment on above: Order Comment: Speci men Type: BLOOD SPECIMEN Performed By: #### 5 8410-2 ####[facility]ATORYCLIA [id number] [address] CONSULT PROGon 06-11-[address] [facility] CONSULT PROG Normal [facility] CONSULT PROG Normal [facility] CT ABD/PEL W IVCONon 022 CT ABD/PEL W IVCON Invalid Interpretation Code [facility] Magnesium SerPl-mCncon 06-11 Magnesium [Mass/Vol] 2.7 mg/dL High 1.7-2.3 [facility] Comment on above: Order Comment: Speci men Type: BLOOD SPECIMEN Performed By: #### 1 9123-9, 2777-1, 53675-4 ####[facility]ORYCLIA [id number] [address] Phosphate SerPl-mCncon 06-11 Phosphate [Mass/Vol] 2.5 mg/dL Low 2.7-4.8 [facility] Comment on above: Order Comment: Speci men Type: BLOOD SPECIMEN Performed By: #### 1 9123-9, 2777-1, 43940-5 ####[facility]ATORYCLIA [id number] [address] OF [facility] Basic metabolic 2000 panelon 06-10-2021 Anion gap [Moles/Vol] 7 mmol/L Low 9-18 [facility] Comment on above: Order Comment: Speci men Type: BLOOD SPECIMEN Performed By: #### 2 777-1, 48311-7, , HFP ####[facility] LABORATORYCLIA [id number] [address] STATES OF [facility] Calcium [Mass/Vol] 8.5 mg/dL Normal 8.5-10.2 [facility] Comment on above: Order Comment: Speci men Type: BLOOD SPECIMEN Performed By: #### 2 777-1, 79378-9, , HFP ####[facility]ATORYCLIA [id number] [address] STATES OF [facility] Chloride [Moles/Vol] 118 mmol/L High 97-105 [facility] Comment on above: Order Comment: Speci men Type: BLOOD SPECIMEN Performed By: #### 2 777-1, 57665-7, , HFP ####[facility]ORYCLIA [id number] [address] [place] CO2 [Moles/Vol] 26 mmol/L Normal 22-30 [facility] Comment on above: Order Comment: Speci men Type: BLOOD SPECIMEN Performed By: #### 2 777-1, 11325-9, , HFP ####[facility]ORYCLIA [id number] [address] [place] Creatinine [Mass/Vol] 0.70 mg/dL Low 0.73-1.22 [facility] Comment on above: Order Comment: Speci men Type: BLOOD SPECIMEN Performed By: #### 2 777-1, 78023-1, , HFP ####[facility]ORYCLIA [id number] [address] [place] GFR/1.73 sq M.predicted MDRD (S/P/Bld) [Vol rate/Area] mL/min/{1.73_m2} Normal [facility] Comment on above: Order [...] actual GFR. Performed By: #### 2 777-1, 31550-8, , [facility] ####[facility]ATORYCLIA [id number] [place] [address] [place] Glucose [Mass/Vol] 135 mg/dL High 74-99 [facility] Comment on above: Order [facility]: [facility] BLOOD SPECIMEN Result Comment: The [place] [employer] (ADA) provides guidance for cutoff [...] Standards of Medical Care in Diabetes 2016, [place] [employer]. Diabetes Care. 2016.39(Suppl 1). Performed By: #### 2 777-1, 54749-9, , [facility] ####[facility]ATORYCLIA [id number] [place] [address] [place] Potassium [Moles/Vol] 3.9 mmol/L Normal 3.7-5.1 [facility] Comment on above: Order Comment: Speci [facility] Type: BLOOD SPECIMEN Performed By: #### 2 777-1, 02064-2, , [facility] ####[facility]ATORYCLIA [id number] [place], [place] [id number] [place] [address] Sodium [Moles/Vol] 151 mmol/L High 136-144 [facility] Comment on above: Order Comment: Speci men Type: BLOOD SPECIMEN Performed By: #### 2 777-1, 60000-6, , [facility] ####[facility]ATORYCLIA [id number] [place] [id number] [facility] Urea nitrogen [Mass/Vol] 27 mg/dL High 9-24 [facility] Comment on above: Order Comment: Speci men Type: BLOOD SPECIMEN Performed By: #### 2 777-1, 32802-8, , [facility] ####[facility]ATORYCLIA [id number] [address] CASE MANAGEMon 06-10-[address] [facility] CBC panel Auto (Bld)on 06-10 Erythrocyte distribution width (RBC) [Ratio] 16.2 % High 11.5-15.0 [facility] Comment on above: Order Comment: Speci men Type: BLOOD SPECIMEN Performed By: #### 5 8410-2 ####[facility]ORYCLIA [id number] [address] Hematocrit (Bld) [Volume fraction] 34.8 % Low 39.0-51.0 [facility] Comment on above: Order Comment: Speci men Type: BLOOD SPECIMEN Performed By: #### 5 8410-2 ####[facility]ORYCLIA [id number] [address] Hemoglobin (Bld) [Mass/Vol] 10.2 g/dL Low 13.0-17.0 [facility] Comment on above: Order Comment: Speci men Type: BLOOD SPECIMEN Performed By: #### 5 8410-2 ####[facility]ORYCLIA [id number] [address] [place] MCH (RBC) [Entitic mass] 27.1 pg Normal 26.0-34.0 [facility] Comment on above: Order Comment: Speci men Type: BLOOD SPECIMEN Performed By: #### 5 8410-2 ####[facility]ORY[facility] [id number] [address] MCHC (RBC) [Mass/Vol] 29.3 g/dL Low 30.5-36.0 [facility] Comment on above: Order Comment: Speci men Type: BLOOD SPECIMEN Performed By: #### 5 8410-2 ####[facility]ORYCL[facility] [id number] [address] MCV (RBC) [Entitic vol] 92.6 fL Normal 80.0-100.0 [facility] Comment on above: Order Comment: Speci men Type: BLOOD SPECIMEN Performed By: #### 5 8410-2 ####[facility]ORYCL[facility] [id number] [address] Nucleated RBC (Bld) [#/Vol] 10*3/uL Normal <0.01 [facility] Comment on above: Order Comment: Speci men Type: BLOOD SPECIMEN Performed By: #### 5 8410-2 ####[facility]ORYCL[facility] [id number] [address] Platelet mean volume (Bld) [Entitic vol] 10.4 fL Normal 9.0-12.7 [facility] Comment on above: Order Comment: Speci men Type: BLOOD SPECIMEN Performed By: #### 5 8410-2 ####[facility]ORYCL[facility] [id number] [address] Platelets (Bld) [#/Vol] 206 10*3/uL Normal 150-400 [facility] Comment on above: Order Comment: Speci men Type: BLOOD SPECIMEN Performed By: #### 5 8410-2 ####[facility]ATORYCLIA [id number] [address] RBC (Bld) [#/Vol] 3.76 10*6/uL Low 4.20-6.00 [facility] Comment on above: Order Comment: Speci men Type: BLOOD SPECIMEN Performed By: #### 5 8410-2 ####[facility]ORYCLIA [id number] [address] WBC (Bld) [#/Vol] 11.36 10*3/uL High 3.70-11.00 [facility] Comment on above: Order Comment: Speci men Type: BLOOD SPECIMEN Performed By: #### 5 8410-2 ####[facility]ORYCLIA [id number] [address] HEPATIC FUNCTION PNLon 06-10 Albumin [Mass/Vol] 3.1 g/dL Low 3.9-4.9 [facility] Comment on above: Order Comment: Speci men Type: BLOOD SPECIMEN Performed By: #### 2 777-1, 03185-7, , HFP ####[facility]ORYCLIA [id number] [address] ALP [Catalytic activity/Vol] 73 U/L Normal 38-113 [facility] Comment on above: Order Comment: Speci men Type: BLOOD SPECIMEN Performed By: #### 2 777-1, 21201-9, , HFP ####[facility]ORYCLIA [id number] [address] ALT With P-5'-P [Catalytic activity/Vol] 64 U/L High 10-54 [facility] Comment on above: Order Comment: Speci men Type: BLOOD SPECIMEN Performed By: #### 2 777-1, 67921-5, , HFP ####[facility]ORYCLIA [id number] [address] AST With P-5'-P [Catalytic activity/Vol] 44 U/L High 14-40 [facility] Comment on above: Order Comment: Speci men Type: BLOOD SPECIMEN Performed By: #### 2 777-1, 71661-1, , HFP ####[facility]ORYCLIA [id number] [address] Bilirubin [Mass/Vol] 0.5 mg/dL Normal 0.2-1.3 [facility] Comment on above: Order Comment: Speci men Type: BLOOD SPECIMEN Performed By: #### 2 777-1, 67694-6, , [facility] ####[facility]ATORYCLIA [id number] [address] Bilirubin.conjugated [Mass/Vol] mg/dL Normal <0.2 [facility] Comment on above: Order Comment: Speci men Type: BLOOD SPECIMEN Performed By: #### 2 777-1, 94182-1, , [facility] ####[facility]ORYCLIA [id number] [address] Protein [Mass/Vol] 5.7 g/dL Low 6.3-8.0 [facility] Comment on above: Order Comment: Speci men Type: BLOOD SPECIMEN Performed By: #### 2 777-1, 16568-0, , [facility] ####[facility]ORYCLIA [id number] [address] LEVETIRACETAMon 06-10-2021 levETIRAcetam [Mass/Vol] 57.7 ug/mL High 12.0-46.0 [facility] Comment on above: Order [...] developed and its performance characteristics determined by [facility]'s Isrrael Perez [facility] [place] ([facility]). It has not been cleared or approved by the FDA. [facility] is regulated under CLIA as qualified to perform high complexity testing. This test is used for clinical purposes. It should not be regarded as investigational or for research. Performed By: #### L DARY ####[facility] LAB REFERENCE LABCLIA [id number] NILESH MCKEON [id number] [address] [place] Magnesium SerPl-mCncon 06-10 Magnesium [Mass/Vol] 2.7 mg/dL High 1.7-2.3 [facility] Comment on above: Order Comment: Speci men Type: BLOOD SPECIMEN Performed By: #### 2 777-1, 79504-3, , [facility] ####[facility]ATORYCLIA [id number] [place] [address] [place] Phosphate SerPl-ncon 06-10 Phosphate [Mass/Vol] 1.8 mg/dL Low 2.7-4.8 [facility] Comment on above: Order Comment: Speci men Type: BLOOD SPECIMEN Performed By: #### 2 777-1, 13791-4, , [facility] ####[facility]ATORYCLIA [id number] [place] [address] [place] ALLIED HEALTHon 06-09-[address] [facility] ALLIED HEALTH Normal [facility] ALLIED HEALTH Normal [facility] ALLIED HEALTH Normal [facility] Basic metabolic 2000 panelon 06-09-2021 Anion gap [Moles/Vol] 8 mmol/L Low 9-18 [facility] Comment on above: Order Comment: Speci men Type: BLOOD SPECIMEN Performed By: #### 2 4321-2, 2776-, ####[facility]ATORYCLIA [id number] [place] [address] [place] Calcium [Mass/Vol] 8.3 mg/dL Low 8.5-10.2 [facility] Comment on above: Order Comment: Speci men Type: BLOOD SPECIMEN Performed By: #### 2 4321-2, 2776-, ####[facility]ORATORYCLIA [id number] [place] [address] [place] Chloride [Moles/Vol] 116 mmol/L High 97-105 [facility] Comment on above: Order Comment: Speci men Type: BLOOD SPECIMEN Performed By: #### 2 4321-2, 2776-05, ####[facility]ATORYCLIA [id number] [place] [address] [place] CO2 [Moles/Vol] 27 mmol/L Normal 22-30 [facility] Comment on above: Order Comment: Speci men Type: BLOOD SPECIMEN Performed By: #### 2 4321-2, 2776-05, ####[facility]ATORYCLIA [id number] [address] STATES OF [facility] Creatinine [Mass/Vol] 0.70 mg/dL Low 0.73-1.22 [facility] Comment on above: Order Comment: Speci men Type: BLOOD SPECIMEN Performed By: #### 2 4321-2, 2776-05, ####[facility]ATORYCLIA [id number] [place] [address] [place] GFR/1.73 sq M.predicted MDRD (S/P/Bld) [Vol rate/Area] mL/min/{1.73_m2} Normal [facility] Comment on above: Order [...] GFR. Performed By: #### 2 4321-2, 2777, ####[facility]ATORYCLIA [id number] [place] [address] [place] Glucose [Mass/Vol] 123 mg/dL High 74-99 [facility] Comment on above: Order Comment: Speci men Type: BLOOD SPECIMEN Result Comment: The [place] [employer] (ADA) provides guidance for cutoff [...] Standards of Medical Care in Diabetes 2016, [place] [employer]. Diabetes Care. 2016.39(Suppl 1). Performed By: #### 2 4321-2, 2776-05, ####[facility]ATORYCLIA [id number] [address] [place] Potassium [Moles/Vol] 3.5 mmol/L Low 3.7-5.1 [facility] Comment on above: Order Comment: Speci men Type: BLOOD SPECIMEN Performed By: #### 2 4321-2, 2776-05, ####[facility]ATORYCLIA [id number] [address] [place] Sodium [Moles/Vol] 151 mmol/L High 136-144 [facility] Comment on above: Order Comment: Speci men Type: BLOOD SPECIMEN Performed By: #### 2 4321-2, 2776-05, ####[facility]ATORYCLIA [id number] [place] [address] [place] Urea nitrogen [Mass/Vol] 39 mg/dL High 9-24 [facility] Comment on above: Order Comment: Speci men Type: BLOOD SPECIMEN Performed By: #### 2 4321-2, 2776-05, ####[facility]ATORYCLIA [id number] [address] CBC panel Auto (Bld)on 06-09 Erythrocyte distribution width (RBC) [Ratio] 16.2 % High 11.5-15.0 [facility] Comment on above: Order Comment: Speci men Type: BLOOD SPECIMEN Performed By: #### 5 8410-2 ####[facility]ATORYCLIA [id number] [address] Hematocrit (Bld) [Volume fraction] 33.7 % Low 39.0-51.0 [facility] Comment on above: Order Comment: Speci men Type: BLOOD SPECIMEN Performed By: #### 5 8410-2 ####[facility]ORYCLIA [id number] [address] Hemoglobin (Bld) [Mass/Vol] 10.2 g/dL Low 13.0-17.0 [facility] Comment on above: Order Comment: Speci men Type: BLOOD SPECIMEN Performed By: #### 5 8410-2 ####[facility]ORYCLIA [id number] [address] MCH (RBC) [Entitic mass] 27.4 pg Normal 26.0-34.0 [facility] Comment on above: Order Comment: Speci men Type: BLOOD SPECIMEN Performed By: #### 5 8410-2 ####[facility]ORYCLIA [id number] [address] MCHC (RBC) [Mass/Vol] 30.3 g/dL Low 30.5-36.0 [facility] Comment on above: Order Comment: Speci men Type: BLOOD SPECIMEN Performed By: #### 5 8410-2 ####[facility]ORYCLIA [id number] [address] MCV (RBC) [Entitic vol] 90.6 fL Normal 80.0-100.0 [facility] Comment on above: Order Comment: Speci men Type: BLOOD SPECIMEN Performed By: #### 5 8410-2 ####[facility]ATORYCLIA [id number] [address] Nucleated RBC (Bld) [#/Vol] 10*3/uL Normal <0.01 [facility] Comment on above: Order Comment: Speci men Type: BLOOD SPECIMEN Performed By: #### 5 8410-2 ####[facility]ORYCLIA [id number] [address] Platelet mean volume (Bld) [Entitic vol] 10.3 fL Normal 9.0-12.7 [facility] Comment on above: Order Comment: Speci men Type: BLOOD SPECIMEN Performed By: #### 5 8410-2 ####[facility]ORYCLIA [id number] [address] Platelets (Bld) [#/Vol] 219 10*3/uL Normal 150-400 [facility] Comment on above: Order Comment: Speci men Type: BLOOD SPECIMEN Performed By: #### 5 8410-2 ####[facility]ORYCLIA [id number] [address] RBC (Bld) [#/Vol] 3.72 10*6/uL Low 4.20-6.00 [facility] Comment on above: Order Comment: Speci men Type: BLOOD SPECIMEN Performed By: #### 5 8410-2 ####[facility]ATORYCLIA [id number] [address] OF [facility] WBC (Bld) [#/Vol] 13.02 10*3/uL High 3.70-11.00 [facility] Comment on above: Order Comment: Speci men Type: BLOOD SPECIMEN Performed By: #### 5 8410-2 ####[facility]ORYCLIA [id number] [address] CONSULT PROGon 06-09-[address] [facility] CONSULT PROG Normal [facility] CT BRAIN WO IVCONon 06-09-[address] BRAIN WO IVCON Normal [facility] Magnesium SerPl-mCncon 06-09 Magnesium [Mass/Vol] 2.8 mg/dL High 1.7-2.3 [facility] Comment on above: Order Comment: Speci men Type: BLOOD SPECIMEN Performed By: #### 2 4321-2, 2777-1, 01583-8 ####[facility]ORYCLIA [id number] [address] NURSING PROGon 06-09-[address] [facility] NUTRITIONon 06-09-[address] [facility] PT EDon 06-09-[address] [facility] Phosphate SerPl-mCncon 06-09 Phosphate [Mass/Vol] 2.2 mg/dL Low 2.7-4.8 [facility] Comment on above: Order Comment: Speci men Type: BLOOD SPECIMEN Performed By: #### 2 4321-2, 2777-1, ####[facility]ORYCLIA [id number] [address] Vancomycin random [Mass/Vol] on 06-09-2021 Vancomycin [Mass/Vol] 18.9 ug/mL Normal 10.0-20.0 [facility] Comment on above: Order Comment: Speci men Type: BLOOD SPECIMEN Result Comment: Refe rence ranges and high/low indicator flags are provided as general guidelines only. The treating physician must determine appropriate target levels/dosing based on the specific clinical situation. Performed By: #### 4 091-5 ####[facility]ATORYCLIA [id number] [address] XR ABD 2V SUPINE W UPR/DECUB /CTLon 06-09-2021 XR ABD 2V SUPINE W UPR/DECUB/CTL Normal [facility] XR CHEST 1V FRONTALon 2021 XR CHEST 1V FRONTAL Normal [facility] XR NECK SOFT TISSUE 2V AP/LA Ton 06-09-2021 XR NECK SOFT TISSUE 2V AP/LAT Normal [facility] XR SKULL 2V AP/LATon 022 XR SKULL 2V AP/LAT Normal [facility] ALLIED HEALTHon 06-08-[address] [facility] ANES POSTPROC EVALon 022 [address]ES [address] EVAL Normal [facility] ANES PRE-OPon 06-08-2021 ANES PRE-OP Normal [facility] BRIEF OP NOTon 06-08-2021 BRI[address] OP NOT Normal [facility] Bacteria Spec Anaerobe Culto n 06-08-2021 Bacteria identified Anaer cx Nom (Unsp spec) ORGANISM ID: 1 Rare Staphylococcus saccharolyticus Identification performed by [facility] CC-Main See scanned document for susceptibility report Normal [facility] Comment on above: Performed By: #### 6 462-6 635-3 ####[facility]ATORYCLIA [id number] [place] [address] [place] Bacteria Wnd Culton 06-08-19 22 Bacteria identified Cx Nom (Wound) CULTURE, INTRAOPERATIVE HARDWARE: No growth 5 days GRAM STAIN: Not performed on specimen type Normal [facility] Comment on above: Performed By: #### 6 462-6 635-3 ####[facility]ATORYCLIA [id number] [place] [address] [place] Basic metabolic 2000 panelon 06-08-2021 Anion gap [Moles/Vol] 9 mmol/L Normal 9-18 [facility] Comment on above: Order Comment: Speci men Type: BLOOD SPECIMEN Performed By: #### 2 4321-2, 2776-05, ####[facility]ATORYCLIA [id number] [place] [address] [place] Calcium [Mass/Vol] 8.7 mg/dL Normal 8.5-10.2 [facility] Comment on above: Order Comment: Speci men Type: BLOOD SPECIMEN Performed By: #### 2 4321-2, 2776-05, ####[facility]ATORYCLIA [id number] [place] [address] [place] Chloride [Moles/Vol] 113 mmol/L High 97-105 [facility] Comment on above: Order Comment: Speci men Type: BLOOD SPECIMEN Performed By: #### 2 4321-2, 2776-05, ####[facility]ATORYCLIA [id number] [place], [place] [address] [place] [address] [place] CO2 [Moles/Vol] 26 mmol/L Normal 22-30 [facility] Comment on above: Order Comment: Speci men Type: BLOOD SPECIMEN Performed By: #### 2 4321-2, 2776-05, ####[facility]ATORYCLIA [id number] [address] [place] Creatinine [Mass/Vol] 0.68 mg/dL Low 0.73-1.22 [facility] Comment on above: Order Comment: Speci men Type: BLOOD SPECIMEN Performed By: #### 2 4321-2, 2776-05, ####[facility]ATORYCLIA [id number] [address] [place] GFR/1.73 sq M.predicted MDRD (S/P/Bld) [Vol rate/Area] mL/min/{1.73_m2} Normal [facility] Comment on above: Order [...] Performed By: #### 2 4321-2, 2776-05, ####[facility]ATORYCLIA [id number] [place], [place] [address] [place] [address] [place] Glucose [Mass/Vol] 146 mg/dL High 74-99 [facility] Comment on above: Order Comment: Speci men Type: BLOOD SPECIMEN Result Comment: The [place] [employer] (ADA) provides guidance for cutoff [...] Standards of Medical Care in Diabetes 2016, [place] [employer]. Diabetes Care. 2016.39(Suppl 1). Performed By: #### 2 4321-2, 2776-05, ####[facility]ATORYCLIA [id number] [address] STATES OF [facility] Potassium [Moles/Vol] 3.6 mmol/L Low 3.7-5.1 [facility] Comment on above: Order Comment: Speci men Type: BLOOD SPECIMEN Performed By: #### 2 4321-2, 2776-05, ####[facility]ORYCLIA [id number] [address] STATES OF [facility] Sodium [Moles/Vol] 148 mmol/L High 136-144 [facility] Comment on above: Order Comment: Speci men Type: BLOOD SPECIMEN Performed By: #### 2 4321-2, 2776-05, ####[facility]ORYCLIA [id number] [address] [place] Urea nitrogen [Mass/Vol] 36 mg/dL High 9-24 [facility] Comment on above: Order Comment: Speci men Type: BLOOD SPECIMEN Performed By: #### 2 4321-2, 2776-05, ####[facility]ATORYCLIA [id number] [address] [place] CASE MANAGEMon 02-02-[address] [facility] CBC panel Auto (Bld)on 06-08 Erythrocyte distribution width (RBC) [Ratio] 16.0 % High 11.5-15.0 [facility] Comment on above: Order Comment: Speci men Type: BLOOD SPECIMEN Performed By: #### 5 8410-2 ####[facility]ATORYCLIA [id number] [address] Hematocrit (Bld) [Volume fraction] 38.4 % Low 39.0-51.0 [facility] Comment on above: Order Comment: Speci men Type: BLOOD SPECIMEN Performed By: #### 5 8410-2 ####[facility]ORYCLIA [id number] [address] Hemoglobin (Bld) [Mass/Vol] 12.1 g/dL Low 13.0-17.0 [facility] Comment on above: Order Comment: Speci men Type: BLOOD SPECIMEN Performed By: #### 5 8410-2 ####[facility]ORYCLIA [id number] [address] MCH (RBC) [Entitic mass] 28.3 pg Normal 26.0-34.0 [facility] Comment on above: Order Comment: Speci men Type: BLOOD SPECIMEN Performed By: #### 5 8410-2 ####[facility]ORYCLIA [id number] [address] MCHC (RBC) [Mass/Vol] 31.5 g/dL Normal 30.5-36.0 [facility] Comment on above: Order Comment: Speci men Type: BLOOD SPECIMEN Performed By: #### 5 8410-2 ####[facility]ORYCLIA [id number] [address] MCV (RBC) [Entitic vol] 89.9 fL Normal 80.0-100.0 [facility] Comment on above: Order Comment: Speci men Type: BLOOD SPECIMEN Performed By: #### 5 8410-2 ####[facility]ORYCLIA [id number] [address] Nucleated RBC (Bld) [#/Vol] 10*3/uL Normal <0.01 [facility] Comment on above: Order Comment: Speci men Type: BLOOD SPECIMEN Performed By: #### 5 8410-2 ####[facility]ATORYCLIA [id number] [address] Platelet mean volume (Bld) [Entitic vol] 10.3 fL Normal 9.0-12.7 [facility] Comment on above: Order Comment: Speci men Type: BLOOD SPECIMEN Performed By: #### 5 8410-2 ####[facility]ORYCLIA [id number] [address] Platelets (Bld) [#/Vol] 236 10*3/uL Normal 150-400 [facility] Comment on above: Order Comment: Speci men Type: BLOOD SPECIMEN Performed By: #### 5 8410-2 ####[facility]ORYCLIA [id number] [address] RBC (Bld) [#/Vol] 4.27 10*6/uL Normal 4.20-6.00 [facility] Comment on above: Order Comment: Speci men Type: BLOOD SPECIMEN Performed By: #### 5 8410-2 ####[facility]ORYCLIA [id number] [address] WBC (Bld) [#/Vol] 11.06 10*3/uL High 3.70-11.00 [facility] Comment on above: Order Comment: Speci men Type: BLOOD SPECIMEN Performed By: #### 5 8410-2 ####[facility]ATORYCLIA [id number] [address] CONSULT PROGon 06-08-[address] [facility] CT BRAIN WO IVCONon 06-08-19 CT BRAIN WO IVCON Normal [facility] Magnesium SerPl-mCncon 02-02 -2022 Magnesium [Mass/Vol] 2.8 mg/dL High 1.7-2.3 [facility] Comment on above: Order Comment: Speci men Type: BLOOD SPECIMEN Performed By: #### 2 4321-2, 2777-1, 45613-0 ####[facility]ATORYCLIA [id number] [address] Microorganism Spec Culton Microorganism identified Cx Nom (Unsp spec) CULTURE, FUNGAL: No Fungus isolated after 28 days FUNGAL SMEAR: No fungus seen Normal [facility] Comment on above: Performed By: #### 1 1475-1 ####[facility]ATORYCLIA [id number] [address] NURSING PROGon 06-08-[address] [facility] OPERATIVE NOon 06-08-[address] [facility] OPERATIVE NO Normal [facility] PT panel Coag (PPP)on 2021 INR Coag (PPP) [Relative time] 1.1 {INR} Normal 0.9-1.3 [facility] Comment on above: Order Comment: Speci men Type: BLOOD SPECIMEN Result Comment: Yris min K Antagonist (VKA) Therapeutic Range: INR 2 to 3 (Target INR of 2.5)Note: For patients treated with VKA drugs, such as warfarin, the [place] [employer] 2012 Guideline recommends [...] 70: 252-289 Performed By: #### 3 4528-0, 82440-9 ####[facility] LABORATORYCLIA [id number] [place], [place] [id number] [place] [address] OF [facility] PT Coag (PPP) [Time] 11.9 s Normal 9.7-13.0 [facility] Comment on above: Order Comment: Speci men Type: BLOOD SPECIMEN Performed By: #### 3 4528-0, 13622-7 ####[facility] LABORATORYCLIA [id number] [address] OF [facility] Phosphate SerPl-mCncon 06-08 Phosphate [Mass/Vol] 2.3 mg/dL Low 2.7-4.8 [facility] Comment on above: Order Comment: Speci men Type: BLOOD SPECIMEN Performed By: #### 2 4321-2, 2777-1, 88499-6 ####[facility]ORYCLIA [id number] [address] aPTT PPPon 06-08-2021 aPTT Coag (PPP) [Time] 24.2 s Normal 23.0-32.4 [facility] Comment on above: Order Comment: Speci men Type: BLOOD SPECIMEN Performed By: #### 3 4528-0, 14628-0 ####[facility]ATORYCLIA [id number] [address] OF [facility] ALLIED HEALTHon 06-07-[address] [facility] ALLIED HEALTH Normal [facility] ALLIED HEALTH Normal [facility] Bacteria CSF Culton 06-07-19 22 Bacteria identified Cx Nom (CSF) CULTURE, CSF: No growth 14 days GRAM STAIN: No organisms seen Rare Mononuclear cells Rare Polymorphonuclear leukocytes Gram stain performed on cytospun specimen. Normal [facility] Comment on above: Performed By: #### 6 06-4 ####[facility]ATORYCLIA [id number] [address] OF [facility] Basic metabolic 2000 panelon 06-07-2021 Anion gap [Moles/Vol] 9 mmol/L Normal 9-18 [facility] Comment on above: Order Comment: Speci men Type: BLOOD SPECIMEN Performed By: #### 1 9123-9, 27711-04, 16306-2 ####[facility]ORYCLIA [id number] [address] Calcium [Mass/Vol] 8.8 mg/dL Normal 8.5-10.2 [facility] Comment on above: Order Comment: Speci men Type: BLOOD SPECIMEN Performed By: #### 1 9123-9, 2776-05, 20561-8 ####[facility]ATORYCLIA [id number] [address] OF [facility] Chloride [Moles/Vol] 111 mmol/L High 97-105 [facility] Comment on above: Order Comment: Speci men Type: BLOOD SPECIMEN Performed By: #### 1 9123-9, 2776-05, 05016-6 ####[facility]ORYCLIA [id number] [address] STATES OF [facility] CO2 [Moles/Vol] 27 mmol/L Normal 22-30 [facility] Comment on above: Order Comment: Speci men Type: BLOOD SPECIMEN Performed By: #### 1 9123-9, 2776-05, 88057-6 ####[facility]ATORYCLIA [id number] [address] OF [facility] Creatinine [Mass/Vol] 0.66 mg/dL Low 0.73-1.22 [facility] Comment on above: Order Comment: Speci men Type: BLOOD SPECIMEN Performed By: #### 1 9123-9, 27711-04, ####[facility]ORY[facility] [id number] [place] [address] [place] GFR/1.73 sq M.predicted MDRD (S/P/Bld) [Vol rate/Area] mL/min/{1.73_m2} Normal [facility] Comment on above: Order [...] GFR. Performed By: #### 1 9123-9, 2777-, 87120-7 ####[facility]ORYCLIA [id number] [place] [address] [place] Glucose [Mass/Vol] 123 mg/dL High 74-99 [facility] Comment on above: Order Comment: Speci men Type: BLOOD SPECIMEN Result Comment: The [place] [employer] (ADA) provides guidance for cutoff [...] Standards of Medical Care in Diabetes 2016, [place] [employer]. Diabetes Care. 2016.39(Suppl 1). Performed By: #### 1 9123-9, 2777, 77095-3 ####[facility]ORY[facility] [id number] [address] STATES OF [facility] Potassium [Moles/Vol] 3.6 mmol/L Low 3.7-5.1 [facility] Comment on above: Order Comment: Speci men Type: BLOOD SPECIMEN Performed By: #### 1 9123-9, 2777, 11823-6 ####[facility]ORYCLIA [id number] [address] [place] Sodium [Moles/Vol] 147 mmol/L High 136-144 [facility] Comment on above: Order Comment: Speci men Type: BLOOD SPECIMEN Performed By: #### 1 9123-9, 2777-1, 92471-1 ####[facility]ATORYCLIA [id number] [address] Urea nitrogen [Mass/Vol] 30 mg/dL High 9-24 [facility] Comment on above: Order Comment: Speci men Type: BLOOD SPECIMEN Performed By: #### 1 9123-9, 2777-1, 14676-8 ####[facility]ORYCLIA [id number] [address] CBC W Auto Differential pane l (Bld)on 06-07-2021 Basophils (Bld) [#/Vol] 10*3/uL Normal <0.11 [facility] Comment on above: Order Comment: Speci men Type: BLOOD SPECIMEN Performed By: #### 5 7021-8 ####[facility]ORYCLIA [id number] [address] Basophils/100 WBC (Bld) 0.2 % Normal [facility] Comment on above: Order Comment: Speci men Type: BLOOD SPECIMEN Performed By: #### 5 7021-8 ####[facility]ORYCLIA [id number] [address] Differential cell count method Nom (Bld) Auto Normal [facility] Comment on above: Order Comment: Speci men Type: BLOOD SPECIMEN Performed By: #### 5 7021-8 ####[facility]ORYCLIA [id number] [address] Eosinophils (Bld) [#/Vol] 0.06 10*3/uL Normal <0.46 [facility] Comment on above: Order Comment: Speci men Type: BLOOD SPECIMEN Performed By: #### 5 7021-8 ####[facility]ORYCLIA [id number] [address] Eosinophils/100 WBC (Bld) 0.6 % Normal [facility] Comment on above: Order Comment: Speci men Type: BLOOD SPECIMEN Performed By: #### 5 7021-8 ####[facility]ORYCLIA [id number] [address] Erythrocyte distribution width (RBC) [Ratio] 15.8 % High 11.5-15.0 [facility] Comment on above: Order Comment: Speci men Type: BLOOD SPECIMEN Performed By: #### 5 7021-8 ####[facility]ATORYCLIA [id number] [address] Hematocrit (Bld) [Volume fraction] 40.4 % Normal 39.0-51.0 [facility] Comment on above: Order Comment: Speci men Type: BLOOD SPECIMEN Performed By: #### 5 7021-8 ####[facility]ATORYCLIA [id number] [address] Hemoglobin (Bld) [Mass/Vol] 12.4 g/dL Low 13.0-17.0 [facility] Comment on above: Order Comment: Speci men Type: BLOOD SPECIMEN Performed By: #### 5 7021-8 ####[facility]ORYCLIA [id number] [address] IMMATURE GRAN % 0.7 % Normal [facility] Comment on above: Order Comment: Speci men Type: BLOOD SPECIMEN Performed By: #### 5 7021-8 ####[facility]ORYCLIA [id number] [address] IMMATURE GRAN ABS 0.07 k/uL Normal <0.10 [facility] Comment on above: Order Comment: Speci men Type: BLOOD SPECIMEN Performed By: #### 5 7021-8 ####[facility]ORYCLIA [id number] [address] Lymphocytes (Bld) [#/Vol] 1.43 10*3/uL Normal 1.00-4.00 [facility] Comment on above: Order Comment: Speci men Type: BLOOD SPECIMEN Performed By: #### 5 7021-8 ####[facility]ORYCLIA [id number] [address] Lymphocytes/100 WBC (Bld) 14.1 % Normal [facility] Comment on above: Order Comment: Speci men Type: BLOOD SPECIMEN Performed By: #### 5 7021-8 ####[facility]ORYCLIA [id number] [address] MCH (RBC) [Entitic mass] 27.6 pg Normal 26.0-34.0 [facility] Comment on above: Order Comment: Speci men Type: BLOOD SPECIMEN Performed By: #### 5 7021-8 ####[facility]ORYCLIA [id number] [address] MCHC (RBC) [Mass/Vol] 30.7 g/dL Normal 30.5-36.0 [facility] Comment on above: Order Comment: Speci men Type: BLOOD SPECIMEN Performed By: #### 5 7021-8 ####[facility]ORYCLIA [id number] [address] MCV (RBC) [Entitic vol] 89.8 fL Normal 80.0-100.0 [facility] Comment on above: Order Comment: Speci men Type: BLOOD SPECIMEN Performed By: #### 5 7021-8 ####[facility]ORYCLIA [id number] [address] Monocytes (Bld) [#/Vol] 0.82 10*3/uL Normal <0.87 [facility] Comment on above: Order Comment: Speci men Type: BLOOD SPECIMEN Performed By: #### 5 7021-8 ####[facility]ORYCLIA [id number] [address] Monocytes/100 WBC (Bld) 8.1 % Normal [facility] Comment on above: Order Comment: Speci men Type: BLOOD SPECIMEN Performed By: #### 5 7021-8 ####[facility]ORYCLIA [id number] [place] [address] Neutrophils (Bld) [#/Vol] 7.74 10*3/uL High 1.45-7.50 [facility] Comment on above: Order Comment: Speci men Type: BLOOD SPECIMEN Performed By: #### 5 7021-8 ####[facility]ORYCLIA [id number] [address] Neutrophils/100 WBC (Bld) 76.3 % Normal [facility] Comment on above: Order Comment: Speci men Type: BLOOD SPECIMEN Performed By: #### 5 7021-8 ####[facility]ORYCLIA [id number] [address] Nucleated RBC (Bld) [#/Vol] 10*3/uL Normal <0.01 [facility] Comment on above: Order Comment: Speci men Type: BLOOD SPECIMEN Performed By: #### 5 7021-8 ####[facility]ORYCLIA [id number] [address] Nucleated RBC/100 WBC (Bld) [Ratio] 0.0 /[address] [facility] Comment on above: Order Comment: Speci men Type: BLOOD SPECIMEN Performed By: #### 5 7021-8 ####[facility]ORYCLIA [id number] [address] Platelet mean volume (Bld) [Entitic vol] 10.4 fL Normal 9.0-12.7 [facility] Comment on above: Order Comment: Speci men Type: BLOOD SPECIMEN Performed By: #### 5 7021-8 ####[facility]ORYCLIA [id number] [address] Platelets (Bld) [#/Vol] 236 10*3/uL Normal 150-400 [facility] Comment on above: Order Comment: Speci men Type: BLOOD SPECIMEN Performed By: #### 5 7021-8 ####[facility]ATORYCLIA [id number] [place] [address] [place] RBC (Bld) [#/Vol] 4.50 10*6/uL Normal 4.20-6.00 [facility] Comment on above: Order Comment: Speci men Type: BLOOD SPECIMEN Performed By: #### 5 7021-8 ####[facility]ORYCLIA [id number] [address] WBC (Bld) [#/Vol] 10.14 10*3/uL Normal 3.70-11.00 [facility] Comment on above: Order Comment: Speci men Type: BLOOD SPECIMEN Performed By: #### 5 7021-8 ####[facility]ORYCLIA [id number] [address] CBC panel Auto (Bld)on 06-07 Erythrocyte distribution width (RBC) [Ratio] 15.8 % High 11.5-15.0 [facility] Comment on above: Order Comment: Speci men Type: BLOOD SPECIMEN Performed By: #### 5 8410-2 ####[facility]ORYCLIA [id number] [address] Hematocrit (Bld) [Volume fraction] 40.0 % Normal 39.0-51.0 [facility] Comment on above: Order Comment: Speci men Type: BLOOD SPECIMEN Performed By: #### 5 8410-2 ####[facility]ORYCLIA [id number] [address] Hemoglobin (Bld) [Mass/Vol] 12.3 g/dL Low 13.0-17.0 [facility] Comment on above: Order Comment: Speci men Type: BLOOD SPECIMEN Performed By: #### 5 8410-2 ####[facility]ORYCLIA [id number] [address] MCH (RBC) [Entitic mass] 27.3 pg Normal 26.0-34.0 [facility] Comment on above: Order Comment: Speci men Type: BLOOD SPECIMEN Performed By: #### 5 8410-2 ####[facility]ORYCLIA [id number] [address] MCHC (RBC) [Mass/Vol] 30.8 g/dL Normal 30.5-36.0 [facility] Comment on above: Order Comment: Speci men Type: BLOOD SPECIMEN Performed By: #### 5 8410-2 ####[facility]ORYCLIA [id number] [address] MCV (RBC) [Entitic vol] 88.7 fL Normal 80.0-100.0 [facility] Comment on above: Order Comment: Speci men Type: BLOOD SPECIMEN Performed By: #### 5 8410-2 ####[facility]ORYCLIA [id number] [address] Nucleated RBC (Bld) [#/Vol] 10*3/uL Normal <0.01 [facility] Comment on above: Order Comment: Speci men Type: BLOOD SPECIMEN Performed By: #### 5 8410-2 ####[facility]ORYCLIA [id number] [address] Platelet mean volume (Bld) [Entitic vol] 10.0 fL Normal 9.0-12.7 [facility] Comment on above: Order Comment: Speci men Type: BLOOD SPECIMEN Performed By: #### 5 8410-2 ####[facility]ORYCLIA [id number] [address] Platelets (Bld) [#/Vol] 234 10*3/uL Normal 150-400 [facility] Comment on above: Order Comment: Speci men Type: BLOOD SPECIMEN Performed By: #### 5 8410-2 ####[facility]ORYCLIA [id number] [address] RBC (Bld) [#/Vol] 4.51 10*6/uL Normal 4.20-6.00 [facility] Comment on above: Order Comment: Speci men Type: BLOOD SPECIMEN Performed By: #### 5 8410-2 ####[facility]ORYCLIA [id number] [address] [place] WBC (Bld) [#/Vol] 11.47 10*3/uL High 3.70-11.00 [facility] Comment on above: Order Comment: Speci men Type: BLOOD SPECIMEN Performed By: #### 5 8410-2 ####[facility]ORYCLIA [id number] [address] CONSULT PROGon 06-07-[address] [facility] CONSULT PROG Normal [facility] CSF MANUAL DIFFon 06-07-2021 DIF TTL, CSF [address] [facility] Comment on above: Order Comment: Speci men Type: CEREBROSPINAL FLUID Performed By: #### 3 4563-7, [id number], [id number] ####[facility]ORYCLIA [id number] [address] EOSIN%, CSF 1 % Normal [facility] Comment on above: Order Comment: Speci men Type: CEREBROSPINAL FLUID Performed By: #### 3 4563-7, [id number], [id number] ####[facility]ORYCLIA [id number] [address] [place] LYMPH%, CSF 21 % Low 50-90 [facility] Comment on above: Order Comment: Speci men Type: CEREBROSPINAL FLUID Performed By: #### 3 4563-7, [id number], [id number] ####[facility]ORYCLIA [id number] [address] [place] MACRO%, CSF 27 % High <1 [facility] Comment on above: Order Comment: Speci men Type: CEREBROSPINAL FLUID Result Comment: Tati ected result: Previously reported as 22 % on 06/07/2021 at 1:49 PM EST. Performed By: #### 3 4563-7, [id number], [id number] ####[facility]ORYCLIA [id number] [address] [place] MONO%, CSF 36 % Normal 10-50 [facility] Comment on above: Order Comment: Speci men Type: CEREBROSPINAL FLUID Performed By: #### 3 4563-7, [id number], [id number] ####[facility]ORYCLIA [id number] [address] [place] NEUT%, CSF 11 % High 0-3 [facility] Comment on above: Order Comment: Speci men Type: CEREBROSPINAL FLUID Performed By: #### 3 4563-7, [id number], [id number] ####[facility]ORYCLIA [id number] [address] OTHER CL%, CSF 4 % Normal [facility] Comment on above: Order Comment: Speci men Type: CEREBROSPINAL FLUID Result Comment: Path review to follow.Corrected result: Previously reported as 10 % on 06/07/2021 at 1:49 PM EST. Performed By: #### 3 4563-7, GPN2631, [id number] ####[facility]ORYCLIA [id number] [address] CSF PATHOLOGIST INTERP (LAB REFLEX ORDER-NO BILL)on 06-07-2021 CSF STAFF REVIEW Negative for maligna nt cells. Rare immature myeloid or ventricular lining cells. Normal [facility] Comment on above: Order Comment: Speci men Type: CEREBROSPINAL FLUID Performed By: #### 3 4563-7, [id number], [id number] ####[facility]ORYCLIA [id number] [address] Pathologist name Reviewed by Eloise rebolledo MD [facility] Comment on above: Order Comment: Speci men Type: CEREBROSPINAL FLUID Performed By: #### 3 4563-7, [id number], GSL2881 ####[facility]ORYCLIA [id number] [address] BRAIN WO IVCONon 06-07-19 CT BRAIN WO IVCON Normal [facility] CT BRAIN WO IVCON Normal [facility] Cell count panel (CSF)on Clarity (CSF) Clear Normal Clear [facility] Comment on above: Order Comment: Speci men Type: CEREBROSPINAL FLUID Performed By: #### 3 4563-7, [id number], [id number] ####[facility]CLIA [id number] [address] Clarity (Unsp spec) Not Indicated Normal Clear [facility] Comment on above: Order Comment: Speci men Type: CEREBROSPINAL FLUID Performed By: #### 3 4563-7, [id number], HPD4396 ####[facility]ORYCLIA [id number] [address] Color (CSF) Colorless Normal Colorless [facility] Comment on above: Order Comment: Speci men Type: CEREBROSPINAL FLUID Performed By: #### 3 4563-7, NNU1427, DCM1483 ####[facility]CLIA [id number] [address] Color (Spun CSF) Not Indicated Normal Colorless [facility] Comment on above: Order Comment: Speci men Type: CEREBROSPINAL FLUID Performed By: #### 3 4563-7, NVI9740, JQB2674 ####[facility]CLIA [id number] [address] CSF TUBE NUMBER [employer] Normal [facility] Comment on above: Order Comment: Speci men Type: CEREBROSPINAL FLUID Performed By: #### 3 4563-7, THP1018, DRD8144 ####[facility]CLIA [id number] [address] RBC Manual cnt (CSF) [#/Vol] 42 cells/uL High 0-5 [facility] Comment on above: Order Comment: Speci men Type: CEREBROSPINAL FLUID Performed By: #### 3 4563-7, [id number], [id number] ####[facility] [facility]ORYCLIA [id number] [address] WBC Manual cnt (CSF) [#/Vol] 1 cells/uL Normal 0-5 [facility] Comment on above: Order Comment: Speci men Type: CEREBROSPINAL FLUID Performed By: #### 3 4563-7, HEY0779, CYA3694 ####[facility]ATORYCLIA [id number] [address] [place] Glucose CSF-mCncon 2 Glucose (CSF) [Mass/Vol] 92 mg/dL High 40-70 [facility] Comment on above: Order Comment: Speci men Type: CEREBROSPINAL FLUID Result Comment: Lumb ar CSF glucose values of healthy patients are approximately 60% of the plasma values and must always be compared with a concurrently measured plasma value for adequate clinical interpretation.References: 1. Glucose HK (GLUC3) [package insert V 12.0 Lebanese]. [employer], [place], [place]. September 2015. 2. Michelle Moore, Loki HGarfield (2015). Chapter 7: Glucose and Lactate. Marianela Rothman.(eds.), Cerebrospinal Fluid in Clinical Neurology. Bee: [employer]. Performed By: #### 2 880-3, 2342-4 ####[facility]ATORYCLIA [id number] [address] STATES OF [facility] Lactate (Bld) [Moles/Vol]on 06-07-2021 Lactate [Moles/Vol] 0.9 mmol/L Normal 0.5-2.2 [facility] Comment on above: Order Comment: Speci men Type: BLOOD SPECIMEN Performed By: #### 3 2693-4 ####[facility]ORYCLIA [id number] [address] [place] Lipase SerPl-cCncon 06-07-19 22 Lipase [Catalytic activity/Vol] 35 U/L Normal 16-61 [facility] Comment on above: Order Comment: Speci men Type: BLOOD SPECIMEN Performed By: #### 3 040-3, PROCAL ####[facility]ORYCLIA [id number] [address] [place] Magnesium SerPl-mCncon 06-07 Magnesium [Mass/Vol] 2.7 mg/dL High 1.7-2.3 [facility] Comment on above: Order Comment: Speci men Type: BLOOD SPECIMEN Performed By: #### 1 9123-9, 2777-1, 42263-1 ####[facility]ORYCLIA [id number] [address] PROCALCITONIN (LAB)on 2021 Procalcitonin [Mass/Vol] 0.13 ng/mL High <0.09 [facility] Comment on above: Order Comment: Speci men Type: BLOOD SPECIMEN Result Comment: For a guided interpretation of test results, please visit the [facility] in Procalcitonin Calculator, [email or web address]. Performed By: #### 3 040-3, PROCAL ####[facility] [id number] [address] OF [facility] Phosphate SerPl-ncon 06-07 Phosphate [Mass/Vol] 1.9 mg/dL Low 2.7-4.8 [facility] Comment on above: Order Comment: Speci men Type: BLOOD SPECIMEN Performed By: #### 1 9123-9, 2777-1, 82676-0 ####[facility] [id number] [address] Prot CSF-mCncon 06-07-2021 Protein (CSF) [Mass/Vol] 33 mg/dL Normal 15-45 [facility] Comment on above: Order Comment: Speci men Type: CEREBROSPINAL FLUID Performed By: #### 2 880-3, 2342-4 ####[facility]ORYCLIA [id number] [address] SARS-CoV-2 RNA Resp Ql MEGAN+p robeon 06-07-2021 SARS-CoV-2 (COVID-19) RNA MEGAN+probe Ql (Resp) COVID 19 RESULT: SARS-CoV-2 (Agent of COVID-19) Not Detected by PCR. This test has been authorized by FDA under an Emergency Use Authorization (EUA). Normal [facility] Comment on above: Performed By: #### 9 4500-6 ####[facility]ATORYCLIA [id number] [place] [address] [facility] TYPE AND SCREENon 06-07-[address] [facility] Comment on above: Order Comment: Speci men Type: BLOOD SPECIMEN Performed By: #### T SCR ####[facility]ANKCLIA [id number] [place] [id number] [facility] HISTORICAL AB SCR STATUS Negative Normal [facility] Comment on above: Order Comment: Speci men Type: BLOOD SPECIMEN Performed By: #### T SCR ####[facility]ANKCLIA [id number] [address] Rh Nom (Bld) Positive Normal [facility] Comment on above: Order Comment: Speci men Type: BLOOD SPECIMEN Performed By: #### T SCR ####[facility]ANKCLIA [id number] [address] TYPE AND SCREEN EXPIRATION 06/10/2021 23:[address] [facility] Comment on above: Order Comment: Speci men Type: BLOOD SPECIMEN Performed By: #### T SCR ####[facility]ANKCLIA [id number] [address] Vancomycin random [Mass/Vol] on 06-07-2021 Vancomycin [Mass/Vol] 16.5 ug/mL Normal 10.0-20.0 [facility] Comment on above: Order Comment: Speci men Type: BLOOD SPECIMEN Result Comment: Refe rence ranges and high/low indicator flags are provided as general guidelines only. The treating physician must determine appropriate target levels/dosing based on the specific clinical situation. Performed By: #### 4 091-5 ####[facility]ATORYCLIA [id number] [address] XR CHEST 1V FRONTAL PORTon 0 06-07-2021 XR CHEST 1V FRONTAL PORT Normal [facility] Basic metabolic 2000 panelon 06-06-2021 Anion gap [Moles/Vol] 11 mmol/L Normal 9-18 [facility] Comment on above: Order Comment: Speci men Type: BLOOD SPECIMEN Performed By: #### 2 4321-2, , 2776-05 ####[facility]ATORYCLIA [id number] [address] STATES [facility] Calcium [Mass/Vol] 8.6 mg/dL Normal 8.5-10.2 [facility] Comment on above: Order Comment: Speci men Type: BLOOD SPECIMEN Performed By: #### 2 4321-2, , 2776-05 ####[facility]ATORYCLIA [id number] [address] [place] Chloride [Moles/Vol] 108 mmol/L High 97-105 [facility] Comment on above: Order Comment: Speci men Type: BLOOD SPECIMEN Performed By: #### 2 4321-2, , 2776-05 ####[facility]ORYCLIA [id number] [address] [place] CO2 [Moles/Vol] 25 mmol/L Normal 22-30 [facility] Comment on above: Order Comment: Speci men Type: BLOOD SPECIMEN Performed By: #### 2 4321-2, , 2776-05 ####[facility]ORYCLIA [id number] [address] STATES OF [facility] Creatinine [Mass/Vol] 0.76 mg/dL Normal 0.73-1.22 [facility] Comment on above: Order Comment: Speci men Type: BLOOD SPECIMEN Performed By: #### 2 4321-2, , 2776-05 ####[facility]ATORYCLIA [id number] [place] [address] [place] GFR/1.73 sq M.predicted MDRD (S/P/Bld) [Vol rate/Area] mL/min/{1.73_m2} Normal [facility] Comment on above: Order [...] By: #### 2 4321-2, , 2776-05 ####[facility]ATORYCLIA [id number] [place] [address] [place] Glucose [Mass/Vol] 116 mg/dL High 74-99 [facility] Comment on above: Order Comment: Speci men Type: BLOOD SPECIMEN Result Comment: The [place] [employer] (ADA) provides guidance for cutoff [...] Standards of Medical Care in Diabetes 2016, [place] [employer]. Diabetes Care. 2016.39(Suppl 1). Performed By: #### 2 4321-2, , 2776-05 ####[facility]ATORYCLIA [id number] [place] [address] [place] Potassium [Moles/Vol] 3.5 mmol/L Low 3.7-5.1 [facility] Comment on above: Order Comment: Speci men Type: BLOOD SPECIMEN Performed By: #### 2 4321-2, , 2776-05 ####[facility]ATORYCLIA [id number] [place] [address] [place] Sodium [Moles/Vol] 144 mmol/L Normal 136-144 [facility] Comment on above: Order Comment: Speci men Type: BLOOD SPECIMEN Performed By: #### 2 4321-2, 75501-1, 2776-05 ####[facility]ORYCLIA [id number] [address] Urea nitrogen [Mass/Vol] 31 mg/dL High 9-24 [facility] Comment on above: Order Comment: Speci men Type: BLOOD SPECIMEN Performed By: #### 2 4321-2, , 2776-05 ####[facility]ORYCLIA [id number] [address] CASE MANAGEMon 06-06-[address] [facility] CBC panel Auto (Bld)on 06-06 Erythrocyte distribution width (RBC) [Ratio] 15.8 % High 11.5-15.0 [facility] Comment on above: Order Comment: Speci men Type: BLOOD SPECIMEN Performed By: #### 5 8410-2 ####[facility]ORYCLIA [id number] [address] Hematocrit (Bld) [Volume fraction] 39.5 % Normal 39.0-51.0 [facility] Comment on above: Order Comment: Speci men Type: BLOOD SPECIMEN Performed By: #### 5 8410-2 ####[facility]ORYCLIA [id number] [address] Hemoglobin (Bld) [Mass/Vol] 12.2 g/dL Low 13.0-17.0 [facility] Comment on above: Order Comment: Speci men Type: BLOOD SPECIMEN Performed By: #### 5 8410-2 ####[facility]ATORYCLIA [id number] [address] MCH (RBC) [Entitic mass] 27.8 pg Normal 26.0-34.0 [facility] Comment on above: Order Comment: Speci men Type: BLOOD SPECIMEN Performed By: #### 5 8410-2 ####[facility]ATORYCLIA [id number] [address] MCHC (RBC) [Mass/Vol] 30.9 g/dL Normal 30.5-36.0 [facility] Comment on above: Order Comment: Speci men Type: BLOOD SPECIMEN Performed By: #### 5 8410-2 ####[facility]ORYCL[facility] [id number] [address] MCV (RBC) [Entitic vol] 90.0 fL Normal 80.0-100.0 [facility] Comment on above: Order Comment: Speci men Type: BLOOD SPECIMEN Performed By: #### 5 8410-2 ####[facility]ORYCL[facility] [id number] [address] Nucleated RBC (Bld) [#/Vol] 10*3/uL Normal <0.01 [facility] Comment on above: Order Comment: Speci men Type: BLOOD SPECIMEN Performed By: #### 5 8410-2 ####[facility]ATORYCLIA [id number] [address] Platelet mean volume (Bld) [Entitic vol] 10.4 fL Normal 9.0-12.7 [facility] Comment on above: Order Comment: Speci men Type: BLOOD SPECIMEN Performed By: #### 5 8410-2 ####[facility]ATORYCLIA [id number] [address] Platelets (Bld) [#/Vol] 236 10*3/uL Normal 150-400 [facility] Comment on above: Order Comment: Speci men Type: BLOOD SPECIMEN Performed By: #### 5 8410-2 ####[facility]ORYCLIA [id number] [address] RBC (Bld) [#/Vol] 4.39 10*6/uL Normal 4.20-6.00 [facility] Comment on above: Order Comment: Speci men Type: BLOOD SPECIMEN Performed By: #### 5 8410-2 ####[facility]ATORYCLIA [id number] [place], [place] [id number] [place] [address] WBC (Bld) [#/Vol] 9.74 10*3/uL Normal 3.70-11.00 [facility] Comment on above: Order Comment: Speci men Type: BLOOD SPECIMEN Performed By: #### 5 8410-2 ####[facility]ATORYCLIA [id number] [place] [address] [facility] CONSULT PROGon 06-06-[address] [facility] CONSULT PROG Normal [facility] Magnesium SerPl-mCncon 06-06 Magnesium [Mass/Vol] 2.5 mg/dL High 1.7-2.3 [facility] Comment on above: Order Comment: Speci men Type: BLOOD SPECIMEN Performed By: #### 2 4321-2, 12422-6, 2777-1 ####[facility]ORYCLIA [id number] [address] PT panel Coag (PPP)on 2021 INR Coag (PPP) [Relative time] 1.0 {INR} Normal 0.9-1.3 [facility] Comment on above: Order Comment: Speci men Type: BLOOD SPECIMEN Result Comment: Yris min K Antagonist (VKA) Therapeutic Range: INR 2 to 3 (Target INR of 2.5)Note: For patients treated with VKA drugs, such as warfarin, the [place] [employer] 2012 Guideline recommends [...] 70: 252-289 Performed By: #### 3 4528-0, 92928-4 ####[facility]ORYCLIA [id number] [address] PT Coag (PPP) [Time] 11.4 s Normal 9.7-13.0 [facility] Comment on above: Order Comment: Speci men Type: BLOOD SPECIMEN Performed By: #### 3 4528-0, 82007-8 ####[facility]ORYCLIA [id number] [address] Phosphate SerPl-mCncon 06-06 Phosphate [Mass/Vol] 2.3 mg/dL Low 2.7-4.8 [facility] Comment on above: Order Comment: Speci men Type: BLOOD SPECIMEN Performed By: #### 2 4321-2, 26751-3, 2777-1 ####[facility]ORYCLIA [id number] [address] THROMBOGRAPH HEPARINASE PANE Kiel 06-06-2021 Clot angle after addition of heparinase TEG (Bld) [Angle] 70.2 degrees Normal 47.0-74.0 [facility] Comment on above: Order Comment: Speci men Type: BLOOD SPECIMEN Performed By: #### T EGHPP ####[facility]ORYCLIA [id number] [address] Clot Lysis 30 Min post maximum clot amplitude TEG (Bld) [Length fraction] 0.0 % Normal 0.0-8.0 [facility] Comment on above: Order Comment: Speci men Type: BLOOD SPECIMEN Performed By: #### T EGHPP ####[facility]ORYCLIA [id number] [address] Clotting time after addition of heparinase TEG (Bld) 5.7 minutes Normal 4.0-10.0 [facility] Comment on above: Order Comment: Speci men Type: BLOOD SPECIMEN Performed By: #### T EGHPP ####[facility]ORYCLIA [id number] [address] Coagulation index TEG Qn (Bld) 1.2 Normal -4.6-3.2 [facility] Comment on above: Order Comment: Speci men Type: BLOOD SPECIMEN Result Comment: The Coagulation Index, a secondary parameter, is labeled by the grader marker as for "research use only" and is used per the grader marker's instructions. Its performance characteristics were determined by [facility] [place] in a manner consistent with CLIA requirements. This test has not been cleared by the U.S. Food and Drug Administration. Performed By: #### T EGHPP ####[facility]ORYCLIA [id number] [address] Maximum clot firmness after addition of heparinase TEG (Bld) [Length] 64.0 mm Normal 51.0-75.0 [facility] Comment on above: Order Comment: Speci men Type: BLOOD SPECIMEN Performed By: #### T EGHPP ####[facility]ATORYCLIA [id number] [address] OF [facility] Vancomycin random [Mass/Vol] on 06-06-2021 Vancomycin [Mass/Vol] 17.4 ug/mL Normal 10.0-20.0 [facility] Comment on above: Order Comment: Speci men Type: BLOOD SPECIMEN Result Comment: Refe rence ranges and high/low indicator flags are provided as general guidelines only. The treating physician must determine appropriate target levels/dosing based on the specific clinical situation. Performed By: #### 4 091-5 ####[facility]ATORYCLIA [id number] [address] STATES OF [facility] Vancomycin [Mass/Vol] 13.5 ug/mL Normal 10.0-20.0 [facility] Comment on above: Order Comment: Speci men Type: BLOOD SPECIMEN Result Comment: Refe rence ranges and high/low indicator flags are provided as general guidelines only. The treating physician must determine appropriate target levels/dosing based on the specific clinical situation. Performed By: #### 4 091-5 ####[facility]ORYCLIA [id number] [address] [place] aPTT PPPon 06-06-2021 aPTT Coag (PPP) [Time] 27.8 s Normal 23.0-32.4 [facility] Comment on above: Order Comment: Speci men Type: BLOOD SPECIMEN Performed By: #### 3 4528-0, 17475-3 ####[facility]ORYCLIA [id number] [address] [place] Basic metabolic 2000 panelon 06-05-2021 Anion gap [Moles/Vol] 11 mmol/L Normal 9-18 [facility] Comment on above: Order Comment: Speci men Type: BLOOD SPECIMEN Performed By: #### 1 9123-9, 98157-7, 2776- ####[facility]ATORYCLIA [id number] [place] [address] [place] Calcium [Mass/Vol] 8.6 mg/dL Normal 8.5-10.2 [facility] Comment on above: Order Comment: Speci men Type: BLOOD SPECIMEN Performed By: #### 1 9123-9, 58763-4, 2776- ####[facility]ORYCLIA [id number] [address] STATES OF [facility] Chloride [Moles/Vol] 108 mmol/L High 97-105 [facility] Comment on above: Order Comment: Speci men Type: BLOOD SPECIMEN Performed By: #### 1 9123-9, 53149-6, 2776- ####[facility]ORYCLIA [id number] [place] [address] [place] CO2 [Moles/Vol] 25 mmol/L Normal 22-30 [facility] Comment on above: Order Comment: Speci men Type: BLOOD SPECIMEN Performed By: #### 1 9123-9, 52909-1, 2776- ####[facility]ATORYCLIA [id number] [place] [address] [place] Creatinine [Mass/Vol] 0.77 mg/dL Normal 0.73-1.22 [facility] Comment on above: Order Comment: [facility]: BLOOD [facility]CIMEN Performed By: #### 1 9123-9, 64031-8, 2777-1 ####[facility]ATORYCLIA [id number] [place] [address] [place] GFR/1.73 sq M.predicted MDRD (S/P/Bld) [Vol rate/Area] mL/min/{1.73_m2} Normal [facility] Comment on above: Order [...] actual GFR. Performed By: #### 1 9123-9, 65955-2, 2777-1 ####[facility] H[facility]PITALIA [id number] [place] [address] [place] Glucose [Mass/Vol] 96 mg/dL Normal 74-99 [facility] Comment on above: Order Comment: [facility] Type: BLOOD SPECIMEN Result Comment: The [place] [employer] (ADA) provides guidance for cutoff [...] Standards of Medical Care in Diabetes 2016, [place] [employer]. Diabetes Care. 2016.39(Suppl 1). Performed By: #### 1 9123-9, 82068-3, 2776-05 ####[facility]ATORYCLIA [id number] [address] STATES [facility] Potassium [Moles/Vol] 3.9 mmol/L Normal 3.7-5.1 [facility] Comment on above: Order Comment: Speci men Type: BLOOD SPECIMEN Performed By: #### 1 9123-9, 57970-3, 2776- ####[facility]ORYCLIA [id number] [address] Sodium [Moles/Vol] 144 mmol/L Normal 136-144 [facility] Comment on above: Order Comment: Speci men Type: BLOOD SPECIMEN Performed By: #### 1 91239, 29683-9, 2776-05 ####[facility]ORYCLIA [id number] [address] Urea nitrogen [Mass/Vol] 26 mg/dL High 9-24 [facility] Comment on above: Order Comment: Speci men Type: BLOOD SPECIMEN Performed By: #### 1 9123-9, , 2776-05 ####[facility]ORYCLIA [id number] [address] CBC panel Auto (Bld)on 06-05 Erythrocyte distribution width (RBC) [Ratio] 15.9 % High 11.5-15.0 [facility] Comment on above: Order Comment: Speci men Type: BLOOD SPECIMEN Performed By: #### 5 8410-2 ####[facility]ORYCLIA [id number] [address] Hematocrit (Bld) [Volume fraction] 39.6 % Normal 39.0-51.0 [facility] Comment on above: Order Comment: Speci men Type: BLOOD SPECIMEN Performed By: #### 5 8410-2 ####[facility]ORYCLIA [id number] [address] Hemoglobin (Bld) [Mass/Vol] 12.3 g/dL Low 13.0-17.0 [facility] Comment on above: Order Comment: Speci men Type: BLOOD SPECIMEN Performed By: #### 5 8410-2 ####[facility]ORYCLIA [id number] [address] MCH (RBC) [Entitic mass] 28.1 pg Normal 26.0-34.0 [facility] Comment on above: Order Comment: Speci men Type: BLOOD SPECIMEN Performed By: #### 5 8410-2 ####[facility]ORYCLIA [id number] [address] MCHC (RBC) [Mass/Vol] 31.1 g/dL Normal 30.5-36.0 [facility] Comment on above: Order Comment: Speci men Type: BLOOD SPECIMEN Performed By: #### 5 8410-2 ####[facility]ORYCLIA [id number] [address] MCV (RBC) [Entitic vol] 90.4 fL Normal 80.0-100.0 [facility] Comment on above: Order Comment: Speci men Type: BLOOD SPECIMEN Performed By: #### 5 8410-2 ####[facility]ORYCLIA [id number] [address] Nucleated RBC (Bld) [#/Vol] 10*3/uL Normal <0.01 [facility] Comment on above: Order Comment: Speci men Type: BLOOD SPECIMEN Performed By: #### 5 8410-2 ####[facility]ORYCLIA [id number] [address] Platelet mean volume (Bld) [Entitic vol] 10.5 fL Normal 9.0-12.7 [facility] Comment on above: Order Comment: Speci men Type: BLOOD SPECIMEN Performed By: #### 5 8410-2 ####[facility]ORYCLIA [id number] [address] Platelets (Bld) [#/Vol] 224 10*3/uL Normal 150-400 [facility] Comment on above: Order Comment: Speci men Type: BLOOD SPECIMEN Performed By: #### 5 8410-2 ####[facility]ATORYCLIA [id number] [address] RBC (Bld) [#/Vol] 4.38 10*6/uL Normal 4.20-6.00 [facility] Comment on above: Order Comment: Speci men Type: BLOOD SPECIMEN Performed By: #### 5 8410-2 ####[facility]ORYCLIA [id number] [address] OF [facility] WBC (Bld) [#/Vol] 9.66 10*3/uL Normal 3.70-11.00 [facility] Comment on above: Order Comment: Speci men Type: BLOOD SPECIMEN Performed By: #### 5 8410-2 ####[facility]ORYCLIA [id number] [address] CONSULT PROGon 06-05-[address] [facility] Gas and Carbon monoxide pane l (BldV)on 06-05-2021 Base excess Calc (BldV) [Moles/Vol] 1.8 mmol/L Normal 0-2 [facility] Comment on above: Order Comment: Speci men Type: VENOUS BLOOD SPECIMEN Performed By: #### 2 4344-4 ####[facility]ORYCLIA [id number] [address] Body temperature 100.4 [degF] Normal [facility] Comment on above: Order Comment: Speci men Type: VENOUS BLOOD SPECIMEN Performed By: #### 2 4344-4 ####[facility]ORYCLIA [id number] [address] CALCIUM IONIZED, PH CORRECTED 1.21 mmol/L Normal 1.08-1.30 [facility] Comment on above: Order Comment: Speci men Type: VENOUS BLOOD SPECIMEN Performed By: #### 2 4344-4 ####[facility]ORYCLIA [id number] [address] Calcium.ionized (BldV) [Mass/Vol] 1.19 mmol/L Normal 1.08-1.30 [facility] Comment on above: Order Comment: Speci men Type: VENOUS BLOOD SPECIMEN Performed By: #### 2 4344-4 ####[facility]ORYCLIA [id number] [address] Carboxyhemoglobin (BldV) [Mass fraction] 1.0 % Normal 0.0-2.0 [facility] Comment on above: Order Comment: Speci men Type: VENOUS BLOOD SPECIMEN Result Comment: Carb oxyhemoglobin Reference Range for Smokers: 2.0-8.0% Performed By: #### 2 4344-4 ####[facility]ORYCLIA [id number] [address] CO2 (BldV) [Partial pressure] 41 mm[Hg] Low 42-55 [facility] Comment on above: Order Comment: Speci men Type: VENOUS BLOOD SPECIMEN Performed By: #### 2 4344-4 ####[facility]ORYCLIA [id number] [address] CO2 [Moles/Vol] 23.4 mmol/L Low 25-29 [facility] Comment on above: Order Comment: Speci men Type: VENOUS BLOOD SPECIMEN Performed By: #### 2 4344-4 ####[facility]ORYCLIA [id number] [address] CO2 adjusted to patient's actual temperature (BldV) [Partial pressure] 43 mmHg Normal 42-55 [facility] Comment on above: Order Comment: Speci men Type: VENOUS BLOOD SPECIMEN Performed By: #### 2 4344-4 ####[facility]ATORYCLIA [id number] [address] Glucose [Mass/Vol] 101 mg/dL Normal 60-105 [facility] Comment on above: Order Comment: Speci men Type: VENOUS BLOOD SPECIMEN Performed By: #### 2 4344-4 ####[facility]ATORYCLIA [id number] [place], [place] [address] [place] [address] [place] HCO3 (Bld) [Moles/Vol] 26.0 mmol/L Normal 24-28 [facility] Comment on above: Order Comment: Speci men Type: VENOUS BLOOD SPECIMEN Performed By: #### 2 4344-4 ####[facility] LABORATORYCLIA [id number] [address] [place] Hematocrit (Bld) [Volume fraction] 38.4 % Low 39.0-51.0 [facility] Comment on above: Order Comment: Speci men Type: VENOUS BLOOD SPECIMEN Performed By: #### 2 4344-4 ####[facility]ATORYCLIA [id number] [address] OF [facility] Hemoglobin (Bld) [Mass/Vol] 12.5 g/dL Low 13.0-17.0 [facility] Comment on above: Order Comment: Speci men Type: VENOUS BLOOD SPECIMEN Performed By: #### 2 4344-4 ####[facility]ATORYCLIA [id number] [address] STATES OF [facility] Methemoglobin (Bld) [Mass fraction] % Normal 0.0-1.5 [facility] Comment on above: Order Comment: Speci men Type: VENOUS BLOOD SPECIMEN Performed By: #### 2 4344-4 ####[facility]ATORYCLIA [id number] [address] OF [place] O2 THERAPY Ventilator Normal [facility] Comment on above: Order Comment: Speci men Type: VENOUS BLOOD SPECIMEN Performed By: #### 2 4344-4 ####[facility]ATORYCLIA [id number] [address] Oxygen (BldV) [Partial pressure] 44 mm[Hg] Normal 35-45 [facility] Comment on above: Order Comment: Speci men Type: VENOUS BLOOD SPECIMEN Performed By: #### 2 4344-4 ####[facility]ORATORYCLIA [id number] [address] Oxygen adjusted to patient's actual temperature (BldV) [Partial pressure] 46.8 mmHg High 35-45 [facility] Comment on above: Order Comment: Speci men Type: VENOUS BLOOD SPECIMEN Performed By: #### 2 4344-4 ####[facility]ORATORYCLIA [id number] [address] Oxygen saturation in Blood 76.5 % Normal 60-85 [facility] Comment on above: Order Comment: Speci men Type: VENOUS BLOOD SPECIMEN Performed By: #### 2 4344-4 ####[facility]ORYCLIA [id number] [address] Oxyhemoglobin (BldV) [Mass fraction] 75 % Normal 60-85 [facility] Comment on above: Order Comment: Speci men Type: VENOUS BLOOD SPECIMEN Performed By: #### 2 4344-4 ####[facility]ORYCLIA [id number] [address] pH (BldV) 7.42 [pH] Normal 7.32-7.42 [facility] Comment on above: Order Comment: Speci men Type: VENOUS BLOOD SPECIMEN Performed By: #### 2 4344-4 ####[facility]ORYCLIA [id number] [address] pH adjusted to patient's actual temperature (BldV) 7.40 Normal 7.32-7.42 [facility] Comment on above: Order Comment: Speci men Type: VENOUS BLOOD SPECIMEN Performed By: #### 2 4344-4 ####[facility]ORYCLIA [id number] [address] [place] Potassium [Moles/Vol] 3.7 mmol/L Normal 3.5-5.0 [facility] Comment on above: Order Comment: Speci men Type: VENOUS BLOOD SPECIMEN Performed By: #### 2 4344-4 ####[facility]ORYCLIA [id number] [address] Sodium [Moles/Vol] 141 mmol/L Normal 136-144 [facility] Comment on above: Order Comment: Speci men Type: VENOUS BLOOD SPECIMEN Performed By: #### 2 4344-4 ####[facility]ORYCLIA [id number] [address] [place] Magnesium SerPl-mCncon 06-05 Magnesium [Mass/Vol] 2.3 mg/dL Normal 1.7-2.3 [facility] Comment on above: Order Comment: Speci men Type: BLOOD SPECIMEN Performed By: #### 1 9123-9, 80506-1, 2777-1 ####[facility]ORYCLIA [id number] [address] Phosphate SerPl-mCncon 06-05 Phosphate [Mass/Vol] 2.9 mg/dL Normal 2.7-4.8 [facility] Comment on above: Order Comment: Speci men Type: BLOOD SPECIMEN Performed By: #### 1 9123-9, 33894-2, 2777-1 ####[facility]ORYCLIA [id number] [address] OF [facility] Vancomycin random [Mass/Vol] on 06-05-2021 Vancomycin [Mass/Vol] 23.2 ug/mL High 10.0-20.0 [facility] Comment on above: Order Comment: Speci men Type: BLOOD SPECIMEN Result Comment: Refe rence ranges and high/low indicator flags are provided as general guidelines only. The treating physician must determine appropriate target levels/dosing based on the specific clinical situation. Performed By: #### 4 091-5 ####[facility]ATORYCLIA [id number] [place] [address] [place] (1,3)-T-B-IBOPVHlx 2 (1,3) B-D GLUCAN <31 Normal <60 [facility] Comment on above: Order Comment: Speci men Type: BLOOD SPECIMEN Performed By: #### B DGLUC ####[facility] REFERENCE LABCLIA [id number] [place] [employer] [place] [address] [place] (1,3) B-D GLUCAN, QUAL Negative Normal NEGAT [facility] Comment on above: Order Comment: Speci men Type: BLOOD SPECIMEN Result Comment: Cert ain fungi, such as the genus Cryptococcus which produces very low levels of (1,3)-fnpf-E-bvsezs, may not result in serum (1,3)-fysq-Y-dhxqfq sufficiently elevated so as to be detected by the assay. Infections with fungi of the order Mucorales such as Absidia, Mucor and Rhizopus which are not known to produce (1,3)-ascg-O-xfrqod, are also observed to yield low serum (1,3)-gloz-C-znzjmp titers.In addition, the yeast phase of Blastomyces dermatitidis produces little (1,3)-qasp-O-dottnr and may not be detected by the assay. Performed By: #### B DGLUC ####[facility] LAB REFERENCE LABCLIA [id number] [place] [address] [place] ALLIED HEALTHon 06-04-[address] [facility] ALLIED HEALTH Normal [facility] ARTERIAL BLOOD GASESon 06-04 Base excess Calc (Bld) [Moles/Vol] 3 mmol/L High 0-2 [facility] Comment on above: Order Comment: Speci men Type: ARTERIAL BLOOD SPECIMEN Performed By: #### A LLBG ####[facility]ATORYCLIA [id number] [address] [place] Body temperature 98.06 [degF] Normal [facility] Comment on above: Order Comment: Speci men Type: ARTERIAL BLOOD SPECIMEN Performed By: #### A LLBG ####[facility]ATORYCLIA [id number] [address] [place] CALCIUM IONIZED, PH CORRECTED 1.19 mmol/L Normal 1.08-1.30 [facility] Comment on above: Order Comment: Speci men Type: ARTERIAL BLOOD SPECIMEN Performed By: #### A LLBG ####[facility]ATORYCLIA [id number] [address] OF [facility] Calcium.ionized (BldV) [Mass/Vol] 1.14 mmol/L Normal 1.08-1.30 [facility] Comment on above: Order Comment: Speci men Type: ARTERIAL BLOOD SPECIMEN Performed By: #### A LLBG ####[facility]ORYCLIA [id number] [address] OF [facility] Carboxyhemoglobin (BldA) [Mass fraction] 1.2 % Normal 0.0-2.0 [facility] Comment on above: Order Comment: Speci men Type: ARTERIAL BLOOD SPECIMEN Result Comment: Carb oxyhemoglobin Reference Range for Smokers: 2.0-8.0% Performed By: #### A LLBG ####[facility]ATORYCLIA [id number] [address] CO2 (Bld) [Partial pressure] 35 mm Hg Low 36-46 [facility] Comment on above: Order Comment: Speci men Type: ARTERIAL BLOOD SPECIMEN Performed By: #### A LLBG ####[facility]ORYCLIA [id number] [address] CO2 [Moles/Vol] 23.2 mmol/L Normal 22-28 [facility] Comment on above: Order Comment: Speci men Type: ARTERIAL BLOOD SPECIMEN Performed By: #### A LLBG ####[facility]ORYCLIA [id number] [address] CO2 adjusted to patient's actual temperature (Bld) [Partial pressure] 34 mmHg Low 36-46 [facility] Comment on above: Order Comment: Speci men Type: ARTERIAL BLOOD SPECIMEN Performed By: #### A LLBG ####[facility]ATORYCLIA [id number] [address] Glucose [Mass/Vol] 115 mg/dL High 60-105 [facility] Comment on above: Order Comment: Speci men Type: ARTERIAL BLOOD SPECIMEN Performed By: #### A LLBG ####[facility]ATORYCLIA [id number] [address] [place] HCO3 (Bld) [Moles/Vol] 26 mmol/L Normal 22-26 [facility] Comment on above: Order Comment: Speci men Type: ARTERIAL BLOOD SPECIMEN Performed By: #### A LLBG ####[facility]ORYCLIA [id number] [address] [place] Hematocrit (Bld) [Volume fraction] 35.3 % Low 39.0-51.0 [facility] Comment on above: Order Comment: Speci men Type: ARTERIAL BLOOD SPECIMEN Performed By: #### A LLBG ####[facility]ORYCLIA [id number] [address] [place] Hemoglobin (Bld) [Mass/Vol] 11.5 g/dL Low 13.0-17.0 [facility] Comment on above: Order Comment: Speci men Type: ARTERIAL BLOOD SPECIMEN Performed By: #### A LLBG ####[facility]ORYCLIA [id number] [address] Methemoglobin (Bld) [Mass fraction] % Normal 0.0-1.5 [facility] Comment on above: Order Comment: Speci men Type: ARTERIAL BLOOD SPECIMEN Performed By: #### A LLBG ####[facility]ORY[facility] [id number] [address] [place] O2 THERAPY Ventilator Normal [facility] Comment on above: Order Comment: Speci men Type: ARTERIAL BLOOD SPECIMEN Performed By: #### A LLBG ####[facility]ORY[facility] [id number] [address] [place] Oxygen (Bld) [Partial pressure] 66 mm Hg Low 85-95 [facility] Comment on above: Order Comment: Speci men Type: ARTERIAL BLOOD SPECIMEN Performed By: #### A LLBG ####[facility]ORY[facility] [id number] [address] [place] Oxygen adjusted to patient's actual temperature (Bld) [Partial pressure] 64.3 mmHg Low 85-95 [facility] Comment on above: Order Comment: Speci men Type: ARTERIAL BLOOD SPECIMEN Performed By: #### A LLBG ####[facility]ORYCLIA [id number] [address] OXYGEN SATURATION, ARTERIAL 95 % Normal 95-98 [facility] Comment on above: Order Comment: Speci men Type: ARTERIAL BLOOD SPECIMEN Performed By: #### A LLBG ####[facility]IA [id number] [address] Oxyhemoglobin (BldA) [Mass fraction] 93 % Low 95-98 [facility] Comment on above: Order Comment: Speci men Type: ARTERIAL BLOOD SPECIMEN Performed By: #### A LLBG ####[facility]ORYCLIA [id number] [address] pH (Bld) 7.49 [pH] High 7.35-7.45 [facility] Comment on above: Order Comment: Speci men Type: ARTERIAL BLOOD SPECIMEN Performed By: #### A LLBG ####[facility]ORYCLIA [id number] [address] pH adjusted to patient's actual temperature (Bld) 7.49 High 7.35-7.45 [facility] Comment on above: Order Comment: Speci men Type: ARTERIAL BLOOD SPECIMEN Performed By: #### A LLBG ####[facility]ORYCLIA [id number] [address] Potassium [Moles/Vol] 2.8 mmol/L Low 3.5-5.0 [facility] Comment on above: Order Comment: Speci men Type: ARTERIAL BLOOD SPECIMEN Performed By: #### A LLBG ####[facility]IA [id number] [address] Bas Metab 2000 Pnl SerPlon 0 06-04-2021 Sodium [Moles/Vol] 143 mmol/L Normal 136-144 [facility] Comment on above: Order Comment: Speci men Type: BLOOD SPECIMEN Performed By: #### 2 777-1, , ####[facility]ORYCLIA [id number] [address] Order Comment: Speci men Type: ARTERIAL BLOOD SPECIMEN Performed By: #### A LLBG ####[facility]IA [id number] [address] Basic metabolic 2000 panelon 06-04-2021 Anion gap [Moles/Vol] 11 mmol/L Normal 9-18 [facility] Comment on above: Order Comment: Speci men Type: BLOOD SPECIMEN Performed By: #### 2 777-1, , ####[facility]CLIA [id number] [address] Calcium [Mass/Vol] 8.5 mg/dL Normal 8.5-10.2 [facility] Comment on above: Order Comment: Speci men Type: BLOOD SPECIMEN Performed By: #### 2 777-1, , ####[facility]ORYCLIA [id number] [address] Chloride [Moles/Vol] 107 mmol/L High 97-105 [facility] Comment on above: Order Comment: Speci men Type: BLOOD SPECIMEN Performed By: #### 2 777-1, , ####[facility]ORYCLIA [id number] [address] STATES OF [facility] CO2 [Moles/Vol] 25 mmol/L Normal 22-30 [facility] Comment on above: Order Comment: Speci men Type: BLOOD SPECIMEN Performed By: #### 2 777-1, , ####[facility]ORYCLIA [id number] [address] [place] Creatinine [Mass/Vol] 0.77 mg/dL Normal 0.73-1.22 [facility] Comment on above: Order Comment: Speci men Type: BLOOD SPECIMEN Performed By: #### 2 777-1, 28570-7, ####[facility]ORYCLIA [id number] [place] [address] [place] GFR/1.73 sq M.predicted MDRD (S/P/Bld) [Vol rate/Area] mL/min/{1.73_m2} Normal [facility] Comment on above: Order [...] , ####[facility] [id number] [place] [id number] [place] Glucose [Mass/Vol] 107 mg/dL High 74-99 [facility] Comment on above: Order [facility]: [facility] BLOOD SPECIMEN Result Comment: The [place] [employer] (ADA) provides guidance for cutoff [...] Standards of Medical Care in Diabetes 2016, [place] [employer]. Diabetes Care. 2016.39(Suppl 1). Performed By: #### 2 777-1, , ####[facility]ORATORYCLIA [id number] [address] Potassium [Moles/Vol] 3.1 mmol/L Low 3.7-5.1 [facility] Comment on above: Order Comment: Speci men Type: BLOOD SPECIMEN Performed By: #### 2 777-1, , ####[facility]ORATORYCLIA [id number] [address] Urea nitrogen [Mass/Vol] 19 mg/dL Normal 9-24 [facility] Comment on above: Order Comment: Speci men Type: BLOOD SPECIMEN Performed By: #### 2 777-1, , ####[facility]ORYCLIA [id number] [address] CBC panel Auto (Bld)on 06-04 Erythrocyte distribution width (RBC) [Ratio] 15.8 % High 11.5-15.0 [facility] Comment on above: Order Comment: Speci men Type: BLOOD SPECIMEN Performed By: #### 5 8410-2 ####[facility]ORYCLIA [id number] [address] Hematocrit (Bld) [Volume fraction] 36.9 % Low 39.0-51.0 [facility] Comment on above: Order Comment: Speci men Type: BLOOD SPECIMEN Performed By: #### 5 8410-2 ####[facility]ORYCLIA [id number] [address] Hemoglobin (Bld) [Mass/Vol] 11.2 g/dL Low 13.0-17.0 [facility] Comment on above: Order Comment: Speci men Type: BLOOD SPECIMEN Performed By: #### 5 8410-2 ####[facility]ORYCLIA [id number] [address] OF [facility] MCH (RBC) [Entitic mass] 27.3 pg Normal 26.0-34.0 [facility] Comment on above: Order Comment: Speci men Type: BLOOD SPECIMEN Performed By: #### 5 8410-2 ####[facility]ORYCLIA [id number] [address] MCHC (RBC) [Mass/Vol] 30.4 g/dL Low 30.5-36.0 [facility] Comment on above: Order Comment: Speci men Type: BLOOD SPECIMEN Performed By: #### 5 8410-2 ####[facility]ORYCLIA [id number] [address] MCV (RBC) [Entitic vol] 89.8 fL Normal 80.0-100.0 [facility] Comment on above: Order Comment: Speci men Type: BLOOD SPECIMEN Performed By: #### 5 8410-2 ####[facility]ORYCLIA [id number] [address] Nucleated RBC (Bld) [#/Vol] 10*3/uL Normal <0.01 [facility] Comment on above: Order Comment: Speci men Type: BLOOD SPECIMEN Performed By: #### 5 8410-2 ####[facility]ORYCLIA [id number] [address] Platelet mean volume (Bld) [Entitic vol] 10.7 fL Normal 9.0-12.7 [facility] Comment on above: Order Comment: Speci men Type: BLOOD SPECIMEN Performed By: #### 5 8410-2 ####[facility]ORYCLIA [id number] [address] Platelets (Bld) [#/Vol] 174 10*3/uL Normal 150-400 [facility] Comment on above: Order Comment: Speci men Type: BLOOD SPECIMEN Performed By: #### 5 8410-2 ####[facility]ORYCLIA [id number] [address] RBC (Bld) [#/Vol] 4.11 10*6/uL Low 4.20-6.00 [facility] Comment on above: Order Comment: Speci men Type: BLOOD SPECIMEN Performed By: #### 5 8410-2 ####[facility]ORYCLIA [id number] [address] OF [facility] WBC (Bld) [#/Vol] 8.29 10*3/uL Normal 3.70-11.00 [facility] Comment on above: Order Comment: Speci men Type: BLOOD SPECIMEN Performed By: #### 5 8410-2 ####[facility]ORYCLIA [id number] [address] CONSULT PROGon 06-04-[address] [facility] CT BRAIN WO IVCONon 06-04-19 CT BRAIN WO IVCON Normal [facility] CT CHEST W IVCON PEon 2021 CT CHEST W IVCON PE Normal [facility] Magnesium SerPl-mCncon 06-04 Magnesium [Mass/Vol] 2.2 mg/dL Normal 1.7-2.3 [facility] Comment on above: Order Comment: Speci men Type: BLOOD SPECIMEN Performed By: #### 2 777-1, 55616-2, 59178-3 ####[facility]ORATORYCLIA [id number] [address] NT-proBNP SerPl-mCncon 06-04 Natriuretic peptide.B prohormone N-Terminal [Mass/Vol] 229 pg/mL High <125 [facility] Comment on above: Order Comment: Speci men Type: BLOOD SPECIMEN Performed By: #### 3 3762-6, 4091-5 ####[facility]ORYCLIA [id number] [address] Phosphate SerPl-mCncon 06-04 Phosphate [Mass/Vol] 2.0 mg/dL Low 2.7-4.8 [facility] Comment on above: Order Comment: Speci men Type: BLOOD SPECIMEN Performed By: #### 2 777-1, 62916-1, 70741-7 ####[facility]ORYCLIA [id number] [address] Vancomycin random [Mass/Vol] on 06-04-2021 Vancomycin [Mass/Vol] 35.2 ug/mL High 10.0-20.0 [facility] Comment on above: Order Comment: Speci men Type: BLOOD SPECIMEN Result Comment: Refe rence ranges and high/low indicator flags are provided as general guidelines only. The treating physician must determine appropriate target levels/dosing based on the specific clinical situation. Performed By: #### 3 3762-6, 4091-5 ####[facility]ORYCLIA [id number] [address] XR ABDOMEN 1V SUPINEon 06-04 XR ABDOMEN 1V SUPINE Normal [facility] ALLIED HEALTHon 06-03-[address] [facility] ARTERIAL BLOOD GASESon 06-03 Base excess Calc (Bld) [Moles/Vol] 5 mmol/L High 0-2 [facility] Comment on above: Order Comment: Speci men Type: ARTERIAL BLOOD SPECIMEN Performed By: #### A LLBG ####[facility]ORYCLIA [id number] [address] Body temperature 99.5 [degF] Normal [facility] Comment on above: Order Comment: Speci men Type: ARTERIAL BLOOD SPECIMEN Performed By: #### A LLBG ####[facility]ORYCLIA [id number] [address] CALCIUM IONIZED, PH CORRECTED 1.18 mmol/L Normal 1.08-1.30 [facility] Comment on above: Order Comment: Speci men Type: ARTERIAL BLOOD SPECIMEN Performed By: #### A LLBG ####[facility]ORYCLIA [id number] [address] Calcium.ionized (BldV) [Mass/Vol] 1.16 mmol/L Normal 1.08-1.30 [facility] Comment on above: Order Comment: Speci men Type: ARTERIAL BLOOD SPECIMEN Performed By: #### A LLBG ####[facility]ORYCLIA [id number] [address] Carboxyhemoglobin (BldA) [Mass fraction] 1.2 % Normal 0.0-2.0 [facility] Comment on above: Order Comment: Speci men Type: ARTERIAL BLOOD SPECIMEN Result Comment: Carb oxyhemoglobin Reference Range for Smokers: 2.0-8.0% Performed By: #### A LLBG ####[facility]ORYCLIA [id number] [address] CO2 (Bld) [Partial pressure] 45 mm Hg Normal 36-46 [facility] Comment on above: Order Comment: Speci men Type: ARTERIAL BLOOD SPECIMEN Performed By: #### A LLBG ####[facility]ORYCLIA [id number] [address] CO2 [Moles/Vol] 26.9 mmol/L Normal 22-28 [facility] Comment on above: Order Comment: Speci men Type: ARTERIAL BLOOD SPECIMEN Performed By: #### A LLBG ####[facility]ORYCLIA [id number] [address] CO2 adjusted to patient's actual temperature (Bld) [Partial pressure] 47 mmHg High 36-46 [facility] Comment on above: Order Comment: Speci men Type: ARTERIAL BLOOD SPECIMEN Performed By: #### A LLBG ####[facility]ORYCLIA [id number] [address] [place] Glucose [Mass/Vol] 141 mg/dL High 60-105 [facility] Comment on above: Order Comment: Speci men Type: ARTERIAL BLOOD SPECIMEN Performed By: #### A LLBG ####[facility]ORYCLIA [id number] [address] HCO3 (Bld) [Moles/Vol] 30 mmol/L High 22-26 [facility] Comment on above: Order Comment: Speci men Type: ARTERIAL BLOOD SPECIMEN Performed By: #### A LLBG ####[facility]ORYCLIA [id number] [address] Hematocrit (Bld) [Volume fraction] 35.8 % Low 39.0-51.0 [facility] Comment on above: Order Comment: Speci men Type: ARTERIAL BLOOD SPECIMEN Performed By: #### A LLBG ####[facility]ORYCLIA [id number] [address] Hemoglobin (Bld) [Mass/Vol] 11.6 g/dL Low 13.0-17.0 [facility] Comment on above: Order Comment: Speci men Type: ARTERIAL BLOOD SPECIMEN Performed By: #### A LLBG ####[facility]CLIA [id number] [address] Methemoglobin (Bld) [Mass fraction] % Normal 0.0-1.5 [facility] Comment on above: Order Comment: Speci men Type: ARTERIAL BLOOD SPECIMEN Performed By: #### A LLBG ####[facility]CLIA [id number] [address] O2 THERAPY Ventilator Normal [facility] Comment on above: Order Comment: Speci men Type: ARTERIAL BLOOD SPECIMEN Performed By: #### A LLBG ####[facility]ORYCLIA [id number] [address] Oxygen (Bld) [Partial pressure] 69 mm Hg Low 85-95 [facility] Comment on above: Order Comment: Speci men Type: ARTERIAL BLOOD SPECIMEN Performed By: #### A LLBG ####[facility]CLIA [id number] [address] Oxygen adjusted to patient's actual temperature (Bld) [Partial pressure] 70.8 mmHg Low 85-95 [facility] Comment on above: Order Comment: Speci men Type: ARTERIAL BLOOD SPECIMEN Performed By: #### A LLBG ####[facility]ORYCLIA [id number] [address] OXYGEN SATURATION, ARTERIAL 94 % Low 95-98 [facility] Comment on above: Order Comment: Speci men Type: ARTERIAL BLOOD SPECIMEN Performed By: #### A LLBG ####[facility]ORYCLIA [id number] [address] Oxyhemoglobin (BldA) [Mass fraction] 93 % Low 95-98 [facility] Comment on above: Order Comment: Speci men Type: ARTERIAL BLOOD SPECIMEN Performed By: #### A LLBG ####[facility]ORYCLIA [id number] [address] [place] pH (Bld) 7.43 [pH] Normal 7.35-7.45 [facility] Comment on above: Order Comment: Speci men Type: ARTERIAL BLOOD SPECIMEN Performed By: #### A LLBG ####[facility]CLIA [id number] [address] pH adjusted to patient's actual temperature (Bld) 7.43 Normal 7.35-7.45 [facility] Comment on above: Order Comment: Speci men Type: ARTERIAL BLOOD SPECIMEN Performed By: #### A LLBG ####[facility]ORYCLIA [id number] [address] STATES [place] [facility] Potassium [Moles/Vol] 3.1 mmol/L Low 3.5-5.0 [facility] Comment on above: Order Comment: Speci men Type: ARTERIAL BLOOD SPECIMEN Performed By: #### A LLBG ####[facility]CLIA [id number] [address] [place] Sodium [Moles/Vol] 145 mmol/L High 136-144 [facility] Comment on above: Order Comment: Speci men Type: ARTERIAL BLOOD SPECIMEN Performed By: #### A LLBG ####[facility]ORYCLIA [id number] [address] [place] ASPERGILLUS GALACTOMANNAN SE RUMon 06-03-2021 Galactomannan Ag [place] Ql Negative Normal NEGAT [facility] Comment on above: Order Comment: Speci [...] Performed By: #### A SGALS ####[facility] LABCLIA [id number] [place] [facility] [address] OF [facility] Galactomannan Ag IA Qn <0.50 Normal [facility] Comment on above: Order Comment: Speci men Type: BLOOD SPECIMEN Result Comment: Inde x Values are Interpreted as Follows:Negative specimens <0.50Positive specimens >=0.50 Performed By: #### A SGALS ####[facility] REFER[facility] LABCLIA [id number] [place] [facility] [id number] [facility] Basic metabolic 2000 panelon 06-03-2021 Anion gap [Moles/Vol] 8 mmol/L Low 9-18 [facility] Comment on above: Order Comment: Speci men Type: BLOOD SPECIMEN Performed By: #### 1 9123-9, 2777-1, 39096-6 ####[facility]ORYCLIA [id number] [address] STATES OF [facility] Calcium [Mass/Vol] 8.0 mg/dL Low 8.5-10.2 [facility] Comment on above: Order Comment: Speci men Type: BLOOD SPECIMEN Performed By: #### 1 9123-9, 2777-1, 77129-6 ####[facility]ORYCLIA [id number] [address] STATES OF [facility] Chloride [Moles/Vol] 110 mmol/L High 97-105 [facility] Comment on above: Order Comment: Speci men Type: BLOOD SPECIMEN Performed By: #### 1 9123-9, 2777-1, 72983-0 ####[facility]ORYCLIA [id number] [address] CO2 [Moles/Vol] 28 mmol/L Normal 22-30 [facility] Comment on above: Order Comment: Speci men Type: BLOOD SPECIMEN Performed By: #### 1 9123-9, 2777-1, 98002-5 ####[facility]ORYCLIA [id number] [address] STATES OF [facility] Creatinine [Mass/Vol] 0.75 mg/dL Normal 0.73-1.22 [facility] Comment on above: Order Comment: Speci men Type: BLOOD SPECIMEN Performed By: #### 1 9123-9, 2777-, 85051-1 ####[facility]ORYCLIA [id number] [address] STATES [facility] GFR/1.73 sq M.predicted MDRD (S/P/Bld) [Vol rate/Area] mL/min/{1.73_m2} Normal [facility] Comment on above: Order [...] GFR. Performed By: #### 1 9123-9, 2777-1, 89927-4 ####[facility]ORYCLIA [id number] [address] [place] Glucose [Mass/Vol] 141 mg/dL High 74-99 [facility] Comment on above: Order Comment: Speci men Type: BLOOD SPECIMEN Result Comment: The [place] [employer] (ADA) provides guidance for cutoff [...] Standards of Medical Care in Diabetes 2016, [place] [employer]. Diabetes Care. 2016.39(Suppl 1). Performed By: #### 1 9123-9, 2777-, 38500-0 ####[facility]ORYCLIA [id number] [address] [place] [facility] Potassium [Moles/Vol] 3.3 mmol/L Low 3.7-5.1 [facility] Comment on above: Order Comment: Speci men Type: BLOOD SPECIMEN Performed By: #### 1 9123-9, 2777, 73178-2 ####[facility]ORYCLIA [id number] [address] Sodium [Moles/Vol] 146 mmol/L High 136-144 [facility] Comment on above: Order Comment: Speci men Type: BLOOD SPECIMEN Performed By: #### 1 9123-9, 2777, 56195-8 ####[facility]ORYCLIA [id number] [address] Urea nitrogen [Mass/Vol] 10 mg/dL Normal 9-24 [facility] Comment on above: Order Comment: Speci men Type: BLOOD SPECIMEN Performed By: #### 1 9123-9, 2777-, 60160-4 ####[facility]ORYCLIA [id number] [address] OF [facility] CASE MANAGEMon 06-03-[address] [facility] CBC panel Auto (Bld)on 06-03 Erythrocyte distribution width (RBC) [Ratio] 15.6 % High 11.5-15.0 [facility] Comment on above: Order Comment: Speci men Type: BLOOD SPECIMEN Performed By: #### 5 8410-2 ####[facility]ORYCLIA [id number] [address] Hematocrit (Bld) [Volume fraction] 36.9 % Low 39.0-51.0 [facility] Comment on above: Order Comment: Speci men Type: BLOOD SPECIMEN Performed By: #### 5 8410-2 ####[facility]ORYCLIA [id number] [address] Hemoglobin (Bld) [Mass/Vol] 11.1 g/dL Low 13.0-17.0 [facility] Comment on above: Order Comment: Speci men Type: BLOOD SPECIMEN Performed By: #### 5 8410-2 ####[facility]ORYCLIA [id number] [address] MCH (RBC) [Entitic mass] 27.0 pg Normal 26.0-34.0 [facility] Comment on above: Order Comment: Speci men Type: BLOOD SPECIMEN Performed By: #### 5 8410-2 ####[facility]ORYCLIA [id number] [address] MCHC (RBC) [Mass/Vol] 30.1 g/dL Low 30.5-36.0 [facility] Comment on above: Order Comment: Speci men Type: BLOOD SPECIMEN Performed By: #### 5 8410-2 ####[facility]ORYCLIA [id number] [address] MCV (RBC) [Entitic vol] 89.8 fL Normal 80.0-100.0 [facility] Comment on above: Order Comment: Speci men Type: BLOOD SPECIMEN Performed By: #### 5 8410-2 ####[facility]ORYCLIA [id number] [address] Nucleated RBC (Bld) [#/Vol] 10*3/uL Normal <0.01 [facility] Comment on above: Order Comment: Speci men Type: BLOOD SPECIMEN Performed By: #### 5 8410-2 ####[facility]ORYCLIA [id number] [address] Platelet mean volume (Bld) [Entitic vol] 10.5 fL Normal 9.0-12.7 [facility] Comment on above: Order Comment: Speci men Type: BLOOD SPECIMEN Performed By: #### 5 8410-2 ####[facility]ORYCLIA [id number] [address] [place] Platelets (Bld) [#/Vol] 196 10*3/uL Normal 150-400 [facility] Comment on above: Order Comment: Speci men Type: BLOOD SPECIMEN Performed By: #### 5 8410-2 ####[facility]ORYCLIA [id number] [address] RBC (Bld) [#/Vol] 4.11 10*6/uL Low 4.20-6.00 [facility] Comment on above: Order Comment: Speci men Type: BLOOD SPECIMEN Performed By: #### 5 8410-2 ####[facility]ORYCLIA [id number] [address] WBC (Bld) [#/Vol] 8.18 10*3/uL Normal 3.70-11.00 [facility] Comment on above: Order Comment: Speci men Type: BLOOD SPECIMEN Performed By: #### 5 8410-2 ####[facility]ORYCLIA [id number] [address] OF [facility] CONSULTon 06-03-[address] [facility] CONSULT PROGon 06-03-[address] [facility] Gas and Carbon monoxide pane l (BldV)on 06-03-2021 Base excess Calc (BldV) [Moles/Vol] 1.4 mmol/L Normal 0-2 [facility] Comment on above: Order Comment: Speci men Type: VENOUS BLOOD SPECIMEN Performed By: #### 2 4344-4 ####[facility]ATORYCLIA [id number] [place] [address] Body temperature 98.42 [degF] Normal [facility] Comment on above: Order Comment: Speci men Type: VENOUS BLOOD SPECIMEN Performed By: #### 2 4344-4 ####[facility]ORYCLIA [id number] [address] CALCIUM IONIZED, PH CORRECTED 1.09 mmol/L Normal 1.08-1.30 [facility] Comment on above: Order Comment: Speci men Type: VENOUS BLOOD SPECIMEN Performed By: #### 2 4344-4 ####[facility]ORYCLIA [id number] [address] Calcium.ionized (BldV) [Mass/Vol] 1.12 mmol/L Normal 1.08-1.30 [facility] Comment on above: Order Comment: Speci men Type: VENOUS BLOOD SPECIMEN Performed By: #### 2 4344-4 ####[facility]ORYCLIA [id number] [address] Carboxyhemoglobin (BldV) [Mass fraction] 1.7 % Normal 0.0-2.0 [facility] Comment on above: Order Comment: Speci men Type: VENOUS BLOOD SPECIMEN Result Comment: Carb oxyhemoglobin Reference Range for Smokers: 2.0-8.0% Performed By: #### 2 4344-4 ####[facility]ORYCLIA [id number] [address] CO2 (BldV) [Partial pressure] 50 mm[Hg] Normal 42-55 [facility] Comment on above: Order Comment: Speci men Type: VENOUS BLOOD SPECIMEN Performed By: #### 2 4344-4 ####[facility]ORY[facility] [id number] [address] CO2 [Moles/Vol] 24.9 mmol/L Low 25-29 [facility] Comment on above: Order Comment: Speci men Type: VENOUS BLOOD SPECIMEN Performed By: #### 2 4344-4 ####[facility]ORY[facility] [id number] [address] CO2 adjusted to patient's actual temperature (BldV) [Partial pressure] 50 mmHg Normal 42-55 [facility] Comment on above: Order Comment: Speci men Type: VENOUS BLOOD SPECIMEN Performed By: #### 2 4344-4 ####[facility]ORATORYCLIA [id number] [place], [place] [id number] [place] [address] [place] FIO2 30 % Normal [facility] Comment on above: Order Comment: Speci men Type: VENOUS BLOOD SPECIMEN Performed By: #### 2 4344-4 ####[facility] LABORATORYCLIA [id number] [address] Glucose [Mass/Vol] 191 mg/dL High 60-105 [facility] Comment on above: Order Comment: Speci men Type: VENOUS BLOOD SPECIMEN Performed By: #### 2 4344-4 ####[facility]ORYCLIA [id number] [address] HCO3 (Bld) [Moles/Vol] 27.1 mmol/L Normal 24-28 [facility] Comment on above: Order Comment: Speci men Type: VENOUS BLOOD SPECIMEN Performed By: #### 2 4344-4 ####[facility]ORYCLIA [id number] [address] Hematocrit (Bld) [Volume fraction] 36.2 % Low 39.0-51.0 [facility] Comment on above: Order Comment: Speci men Type: VENOUS BLOOD SPECIMEN Performed By: #### 2 4344-4 ####[facility]ORYCLIA [id number] [address] Hemoglobin (Bld) [Mass/Vol] 11.8 g/dL Low 13.0-17.0 [facility] Comment on above: Order Comment: Speci men Type: VENOUS BLOOD SPECIMEN Performed By: #### 2 4344-4 ####[facility]ORYCLIA [id number] [address] INHALED TIDAL VOLUME (ML) [address] [facility] Comment on above: Order Comment: Speci men Type: VENOUS BLOOD SPECIMEN Performed By: #### 2 4344-4 ####[facility]ORYCLIA [id number] [place] [address] [facility] Methemoglobin (Bld) [Mass fraction] % Normal 0.0-1.5 [facility] Comment on above: Order Comment: Speci men Type: VENOUS BLOOD SPECIMEN Performed By: #### 2 4344-4 ####[facility]ORYCLIA [id number] [place] [address] [facility] [place] O2 THERAPY Ventilator Normal [facility] Comment on above: Order Comment: Speci men Type: VENOUS BLOOD SPECIMEN Performed By: #### 2 4344-4 ####[facility]ORYCLIA [id number] [place], [place] [id number] [place] [address] [place] Oxygen (BldV) [Partial pressure] 69 mm[Hg] High 35-45 [facility] Comment on above: Order Comment: Speci men Type: VENOUS BLOOD SPECIMEN Performed By: #### 2 4344-4 ####[facility]ORYCLIA [id number] [place], [place] [address] [place] [address] [place] Oxygen adjusted to patient's actual temperature (BldV) [Partial pressure] 68.8 mmHg High 35-45 [facility] Comment on above: Order Comment: Speci men Type: VENOUS BLOOD SPECIMEN Performed By: #### 2 4344-4 ####[facility]ORYCLIA [id number] [place], [place] [address] [place] [address] [place] Oxygen saturation in Blood 92.4 % High 60-85 [facility] Comment on above: Order Comment: Speci men Type: VENOUS BLOOD SPECIMEN Performed By: #### 2 4344-4 ####[facility]ORYCLIA [id number] [place], [place] [address] [place] [address] [place] Oxyhemoglobin (BldV) [Mass fraction] 90 % High 60-85 [facility] Comment on above: Order Comment: Speci men Type: VENOUS BLOOD SPECIMEN Performed By: #### 2 4344-4 ####[facility]ORYCLIA [id number] [address] PEEP/CPAP [address] [facility] Comment on above: Order Comment: Speci men Type: VENOUS BLOOD SPECIMEN Performed By: #### 2 4344-4 ####[facility]ORYCLIA [id number] [address] pH (BldV) 7.35 [pH] Normal 7.32-7.42 [facility] Comment on above: Order Comment: Speci men Type: VENOUS BLOOD SPECIMEN Performed By: #### 2 4344-4 ####[facility]ORYCLIA [id number] [address] pH adjusted to patient's actual temperature (BldV) 7.35 Normal 7.32-7.42 [facility] Comment on above: Order Comment: Speci men Type: VENOUS BLOOD SPECIMEN Performed By: #### 2 4344-4 ####[facility]ORYCLIA [id number] [address] Potassium [Moles/Vol] 3.6 mmol/L Normal 3.5-5.0 [facility] Comment on above: Order Comment: Speci men Type: VENOUS BLOOD SPECIMEN Performed By: #### 2 4344-4 ####[facility]ORYCLIA [id number] [address] SET VENTILATOR RESPIRATORY RATE (BPM) [address] [facility] Comment on above: Order Comment: Speci men Type: VENOUS BLOOD SPECIMEN Performed By: #### 2 4344-4 ####[facility]ORYCLIA [id number] [address] Sodium [Moles/Vol] 141 mmol/L Normal 136-144 [facility] Comment on above: Order Comment: Speci men Type: VENOUS BLOOD SPECIMEN Performed By: #### 2 4344-4 ####[facility]ORYCLIA [id number] [address] HIV 1+2 Ab IA Qlon 01-28-202 2 HIV 1 and 2 Ab IA.rapid Nom Normal [facility] Comment on above: Order Comment: Speci men Type: BLOOD SPECIMEN Result Comment: Test not indicated. Performed By: #### 3 1201-7, TOXMG ####[facility]ATORYCLIA [id number] [place] [address] [place] HIV 1+2 Ab+HIV1 p24 Ag IA Ql Non-Reactive Normal Nonreactive [facility] Comment on above: Order Comment: Speci men Type: BLOOD SPECIMEN Result Comment: [place] Rev. Code 3701.243(E): This information has been [...] diagnoses. Performed By: #### 3 1201-7, TOXMG ####[facility]ATORYCLIA [id number] [address] HIVINT Normal [facility] Comment on above: Order Comment: Speci men Type: BLOOD SPECIMEN Result Comment: No e vidence of HIV-1 or HIV-2 infection. Should recent infection be suspected, repeat testing may be considered 2-3 weeks after this draw. Performed By: #### 3 1201-7, TOXMG ####[facility]ATORYCLIA [id number] [address] [place] Magnesium SerPl-mCncon 06-03 Magnesium [Mass/Vol] 1.9 mg/dL Normal 1.7-2.3 [facility] Comment on above: Order Comment: Speci men Type: BLOOD SPECIMEN Performed By: #### 1 9123-9, 2777-1, 86248-2 ####[facility]ATORYCLIA [id number] [place] [address] [place] NUTRITIONon 06-03-[address] [facility] Phosphate SerPl-mCncon 06-03 Phosphate [Mass/Vol] 1.9 mg/dL Low 2.7-4.8 [facility] Comment on above: Order Comment: Speci men Type: BLOOD SPECIMEN Performed By: #### 1 9123-9, 2777-1, 10074-4 ####[facility]ATORYCLIA [id number] [address] TOXOPLASMOSIS IGM AND IGG AB on 06-03-2021 TOXO IGG QUAL Negative Normal Negative [facility] Comment on above: Order Comment: Speci men Type: BLOOD SPECIMEN Result Comment: No s erological evidence of past exposure to Toxoplasma gondii. Cannot exclude recent infection if the specimen collected within 3-4 weeks after infection.Negative <6.4 IU/mLEquivocal 6.4-9.9 IU/mLPositive >=10.0 IU/mL Performed By: #### 3 1201-7, TOXMG ####[facility]ATORYCLIA [id number] [address] TOXO IGM QUAL Negative Normal Negative [facility] Comment on above: Order Comment: Speci men Type: BLOOD SPECIMEN Result Comment: No s erological evidence of recent exposure to Toxoplasma gondii.Negative <0.9 IndexEquivocal 0.9-0.99 IndexPositive >=1.0 Index Performed By: #### 3 1201-7, TOXMG ####[facility]ATORYCLIA [id number] [address] [place] US DVT LOWER BILon US DVT LOWER RAINER Normal [facility] XR CHEST 1V FRONTALon 2021 XR CHEST 1V FRONTAL Normal [facility] ARTERIAL BLOOD GASESon 06-02 Base excess Calc (Bld) [Moles/Vol] 2 mmol/L Normal 0-2 [facility] Comment on above: Order Comment: Speci men Type: ARTERIAL BLOOD SPECIMEN Performed By: #### A LLBG ####[facility]ATORYCLIA [id number] [address] Body temperature 99.32 [degF] Normal [facility] Comment on above: Order Comment: Speci men Type: ARTERIAL BLOOD SPECIMEN Performed By: #### A LLBG ####[facility]ORYCLIA [id number] [address] CALCIUM IONIZED, PH CORRECTED 1.15 mmol/L Normal 1.08-1.30 [facility] Comment on above: Order Comment: Speci men Type: ARTERIAL BLOOD SPECIMEN Performed By: #### A LLBG ####[facility]ORYCLIA [id number] [address] Calcium.ionized (BldV) [Mass/Vol] 1.13 mmol/L Normal 1.08-1.30 [facility] Comment on above: Order Comment: Speci men Type: ARTERIAL BLOOD SPECIMEN Performed By: #### A LLBG ####[facility]ORYCLIA [id number] [address] Carboxyhemoglobin (BldA) [Mass fraction] 1.4 % Normal 0.0-2.0 [facility] Comment on above: Order Comment: Speci men Type: ARTERIAL BLOOD SPECIMEN Result Comment: Carb oxyhemoglobin Reference Range for Smokers: 2.0-8.0% Performed By: #### A LLBG ####[facility]ATORYCLIA [id number] [address] CO2 (Bld) [Partial pressure] 39 mm Hg Normal 36-46 [facility] Comment on above: Order Comment: Speci men Type: ARTERIAL BLOOD SPECIMEN Performed By: #### A LLBG ####[facility]ORYCLIA [id number] [address] [place] CO2 [Moles/Vol] 23.4 mmol/L Normal 22-28 [facility] Comment on above: Order Comment: Speci men Type: ARTERIAL BLOOD SPECIMEN Performed By: #### A LLBG ####[facility]ORYCLIA [id number] [address] CO2 adjusted to patient's actual temperature (Bld) [Partial pressure] 40 mmHg Normal 36-46 [facility] Comment on above: Order Comment: Speci men Type: ARTERIAL BLOOD SPECIMEN Performed By: #### A LLBG ####[facility]CLIA [id number] [address] Glucose [Mass/Vol] 156 mg/dL High 60-105 [facility] Comment on above: Order Comment: Speci men Type: ARTERIAL BLOOD SPECIMEN Performed By: #### A LLBG ####[facility]ORYCLIA [id number] [address] HCO3 (Bld) [Moles/Vol] 26 mmol/L Normal 22-26 [facility] Comment on above: Order Comment: Speci men Type: ARTERIAL BLOOD SPECIMEN Performed By: #### A LLBG ####[facility]ORYCLIA [id number] [address] Hematocrit (Bld) [Volume fraction] 33.9 % Low 39.0-51.0 [facility] Comment on above: Order Comment: Speci men Type: ARTERIAL BLOOD SPECIMEN Performed By: #### A LLBG ####[facility]ORYCLIA [id number] [address] OF [facility] Hemoglobin (Bld) [Mass/Vol] 11.0 g/dL Low 13.0-17.0 [facility] Comment on above: Order Comment: Speci men Type: ARTERIAL BLOOD SPECIMEN Performed By: #### A LLBG ####[facility]ORYCLIA [id number] [address] Methemoglobin (Bld) [Mass fraction] % Normal 0.0-1.5 [facility] Comment on above: Order Comment: Speci men Type: ARTERIAL BLOOD SPECIMEN Performed By: #### A LLBG ####[facility]ORYCLIA [id number] [address] O2 THERAPY Ventilator Normal [facility] Comment on above: Order Comment: Speci men Type: ARTERIAL BLOOD SPECIMEN Performed By: #### A LLBG ####[facility]ORYCLIA [id number] [place], [place] [address] [place] [address] Oxygen (Bld) [Partial pressure] 70 mm Hg Low 85-95 [facility] Comment on above: Order Comment: Speci men Type: ARTERIAL BLOOD SPECIMEN Performed By: #### A LLBG ####[facility]ORYCLIA [id number] [address] Oxygen adjusted to patient's actual temperature (Bld) [Partial pressure] 72.2 mmHg Low 85-95 [facility] Comment on above: Order Comment: Speci men Type: ARTERIAL BLOOD SPECIMEN Performed By: #### A LLBG ####[facility]ORYCLIA [id number] [address] OXYGEN SATURATION, ARTERIAL 96 % Normal 95-98 [facility] Comment on above: Order Comment: Speci men Type: ARTERIAL BLOOD SPECIMEN Performed By: #### A LLBG ####[facility]ORYCLIA [id number] [address] Oxyhemoglobin (BldA) [Mass fraction] 94 % Low 95-98 [facility] Comment on above: Order Comment: Speci men Type: ARTERIAL BLOOD SPECIMEN Performed By: #### A LLBG ####[facility]ORYCLIA [id number] [address] [place] pH (Bld) 7.43 [pH] Normal 7.35-7.45 [facility] Comment on above: Order Comment: Speci men Type: ARTERIAL BLOOD SPECIMEN Performed By: #### A LLBG ####[facility]CLIA [id number] [address] pH adjusted to patient's actual temperature (Bld) 7.42 Normal 7.35-7.45 [facility] Comment on above: Order Comment: Speci men Type: ARTERIAL BLOOD SPECIMEN Performed By: #### A LLBG ####[facility]CLIA [id number] [address] [place] Potassium [Moles/Vol] 2.6 mmol/L Low 3.5-5.0 [facility] Comment on above: Order Comment: Speci men Type: ARTERIAL BLOOD SPECIMEN Performed By: #### A LLBG ####[facility]ORYCLIA [id number] [address] STATES OF [facility] Sodium [Moles/Vol] 142 mmol/L Normal 136-144 [facility] Comment on above: Order Comment: Speci men Type: ARTERIAL BLOOD SPECIMEN Performed By: #### A LLBG ####[facility]ORYCLIA [id number] [address] [place] Ammonia Plas-sCncon 06-02-19 22 Ammonia (P) [Moles/Vol] 20 umol/L Normal 16-60 [facility] Comment on above: Order Comment: Speci men Type: BLOOD SPECIMEN Performed By: #### 1 6362-6 ####[facility]ATORYCLIA [id number] [address] [place] Bacteria CSF Culton 06-02-19 22 Bacteria identified Cx Nom (CSF) CULTURE, CSF: No growth 14 days GRAM STAIN: No organisms seen Rare Polymorphonuclear leukocytes Gram stain performed on cytospun specimen. Normal [facility] Comment on above: Performed By: #### 6 06-4 ####[facility]ORYCLIA [id number] [address] [place] Basic metabolic 2000 panelon 06-02-2021 Anion gap [Moles/Vol] 10 mmol/L Normal 9-18 [facility] Comment on above: Order Comment: Speci men Type: BLOOD SPECIMEN Performed By: #### 2 4321-2, , 2776-05 ####[facility]ORYCLIA [id number] [address] STATES OF [facility] Calcium [Mass/Vol] 8.1 mg/dL Low 8.5-10.2 [facility] Comment on above: Order Comment: Speci men Type: BLOOD SPECIMEN Performed By: #### 2 4321-2, , 2776 ####[facility]ATORYCLIA [id number] [place], [place] [address] [place] [address] [place] Chloride [Moles/Vol] 108 mmol/L High 97-105 [facility] Comment on above: Order Comment: Speci men Type: BLOOD SPECIMEN Performed By: #### 2 4321-2, , 2776-05 ####[facility]ORYCLIA [id number] [address] [place] CO2 [Moles/Vol] 24 mmol/L Normal 22-30 [facility] Comment on above: Order Comment: Speci men Type: BLOOD SPECIMEN Performed By: #### 2 1-2, , 2776-05 ####[facility]ORYCLIA [id number] [address] [place] Creatinine [Mass/Vol] 0.78 mg/dL Normal 0.73-1.22 [facility] Comment on above: Order Comment: Speci men Type: BLOOD SPECIMEN Performed By: #### 2 1-2, , 2776-05 ####[facility]ORYCLIA [id number] [address] [place] GFR/1.73 sq M.predicted MDRD (S/P/Bld) [Vol rate/Area] mL/min/{1.73_m2} Normal [facility] Comment on above: Order [...] By: #### 2 4321-2, , 2776-05 ####[facility]ORYCLIA [id number] [place] [address] [place] Glucose [Mass/Vol] 162 mg/dL High 74-99 [facility] Comment on above: Order Comment: Speci men Type: BLOOD SPECIMEN Result Comment: The [place] [employer] (ADA) provides guidance for cutoff [...] Standards of Medical Care in Diabetes 2016, [place] [employer]. Diabetes Care. 2016.39(Suppl 1). Performed By: #### 2 1-2, , 2776-05 ####[facility]ORYCLIA [id number] [address] [place] Potassium [Moles/Vol] 2.7 mmol/L Low 3.7-5.1 [facility] Comment on above: Order Comment: Speci men Type: BLOOD SPECIMEN Performed By: #### 2 1-2, , 2776-05 ####[facility]ORYCLIA [id number] [address] [place] Sodium [Moles/Vol] 142 mmol/L Normal 136-144 [facility] Comment on above: Order Comment: Speci men Type: BLOOD SPECIMEN Performed By: #### 2 4321-2, , 2776-05 ####[facility]ORYCLIA [id number] [address] [place] Urea nitrogen [Mass/Vol] 12 mg/dL Normal 9-24 [facility] Comment on above: Order Comment: Speci men Type: BLOOD SPECIMEN Performed By: #### 2 1-2, , 2776-05 ####[facility]ORYCLIA [id number] [address] CBC panel Auto (Bld)on 06-02 Erythrocyte distribution width (RBC) [Ratio] 15.0 % Normal 11.5-15.0 [facility] Comment on above: Order Comment: Speci men Type: BLOOD SPECIMEN Performed By: #### 5 8410-2 ####[facility]ORYCLIA [id number] [address] Hematocrit (Bld) [Volume fraction] 34.3 % Low 39.0-51.0 [facility] Comment on above: Order Comment: Speci men Type: BLOOD SPECIMEN Performed By: #### 5 8410-2 ####[facility]ORYCLIA [id number] [address] Hemoglobin (Bld) [Mass/Vol] 10.3 g/dL Low 13.0-17.0 [facility] Comment on above: Order Comment: Speci men Type: BLOOD SPECIMEN Performed By: #### 5 8410-2 ####[facility]ORYCLIA [id number] [address] MCH (RBC) [Entitic mass] 27.0 pg Normal 26.0-34.0 [facility] Comment on above: Order Comment: Speci men Type: BLOOD SPECIMEN Performed By: #### 5 8410-2 ####[facility]ORYCLIA [id number] [address] MCHC (RBC) [Mass/Vol] 30.0 g/dL Low 30.5-36.0 [facility] Comment on above: Order Comment: Speci men Type: BLOOD SPECIMEN Performed By: #### 5 8410-2 ####[facility]ORYCLIA [id number] [address] MCV (RBC) [Entitic vol] 90.0 fL Normal 80.0-100.0 [facility] Comment on above: Order Comment: Speci men Type: BLOOD SPECIMEN Performed By: #### 5 8410-2 ####[facility]ORYCLIA [id number] [address] Nucleated RBC (Bld) [#/Vol] 10*3/uL Normal <0.01 [facility] Comment on above: Order Comment: Speci men Type: BLOOD SPECIMEN Performed By: #### 5 8410-2 ####[facility]ORYCLIA [id number] [address] Platelet mean volume (Bld) [Entitic vol] 10.2 fL Normal 9.0-12.7 [facility] Comment on above: Order Comment: Speci men Type: BLOOD SPECIMEN Performed By: #### 5 8410-2 ####[facility]ORYCLIA [id number] [address] Platelets (Bld) [#/Vol] 194 10*3/uL Normal 150-400 [facility] Comment on above: Order Comment: Speci men Type: BLOOD SPECIMEN Performed By: #### 5 8410-2 ####[facility]ORYCLIA [id number] [address] RBC (Bld) [#/Vol] 3.81 10*6/uL Low 4.20-6.00 [facility] Comment on above: Order Comment: Speci men Type: BLOOD SPECIMEN Performed By: #### 5 8410-2 ####[facility]ORYCLIA [id number] [address] WBC (Bld) [#/Vol] 9.22 10*3/uL Normal 3.70-11.00 [facility] Comment on above: Order Comment: Speci men Type: BLOOD SPECIMEN Performed By: #### 5 8410-2 ####[facility]ORYCLIA [id number] [address] CONSULT PROGon 06-02-[address] [facility] CSF MANUAL DIFFon 06-02-2021 DIF TTL, CSF [address] [facility] Comment on above: Order Comment: Speci men Type: CEREBROSPINAL FLUID Performed By: #### 3 4563-7, [id number], [id number] ####[facility]ORYCLIA [id number] [address] [place] LYMPH%, CSF 4 % Low 50-90 [facility] Comment on above: Order Comment: Speci men Type: CEREBROSPINAL FLUID Performed By: #### 3 4563-7, [id number], [id number] ####[facility]ORYCLIA [id number] [address] [place] MACRO%, CSF 4 % High <1 [facility] Comment on above: Order Comment: Speci men Type: CEREBROSPINAL FLUID Performed By: #### 3 4563-7, [id number], [id number] ####[facility]ORYCLIA [id number] [address] [place] MONO%, CSF 20 % Normal 10-50 [facility] Comment on above: Order Comment: Speci men Type: CEREBROSPINAL FLUID Performed By: #### 3 4563-7, [id number], [id number] ####[facility]ORYCLIA [id number] [address] [place] NEUT%, CSF 72 % High 0-3 [facility] Comment on above: Order Comment: Speci men Type: CEREBROSPINAL FLUID Performed By: #### 3 4563-7, [id number], [id number] ####[facility]ORYCLIA [id number] [address] CSF PATHOLOGIST INTERP (LAB REFLEX ORDER-NO BILL)on 06-02-2021 CSF STAFF REVIEW Negative Normal [facility] Comment on above: Order Comment: Speci men Type: CEREBROSPINAL FLUID Performed By: #### 3 4563-7, [id number], [id number] ####[facility]ORYCLIA [id number] [address] Pathologist name Reviewed by Amador Stevens MD [facility] Comment on above: Order Comment: Speci men Type: CEREBROSPINAL FLUID Performed By: #### 3 4563-7, [id number], [id number] ####[facility]ORYCLIA [id number] [address] Cell count panel (CSF)on Clarity (CSF) Clear Normal Clear [facility] Comment on above: Order Comment: Speci men Type: CEREBROSPINAL FLUID Performed By: #### 3 4563-7, [id number], [id number] ####[facility]ORYCLIA [id number] [address] Clarity (Unsp spec) Not Indicated Normal Clear [facility] Comment on above: Order Comment: Speci men Type: CEREBROSPINAL FLUID Performed By: #### 3 4563-7, [id number], [id number] ####[facility]ORYCLIA [id number] [address] Color (CSF) Colorless Normal Colorless [facility] Comment on above: Order Comment: Speci men Type: CEREBROSPINAL FLUID Performed By: #### 3 4563-7, [id number], [id number] ####[facility]ORYCLIA [id number] [address] Color (Spun CSF) Not Indicated Normal Colorless [facility] Comment on above: Order Comment: Speci men Type: CEREBROSPINAL FLUID Performed By: #### 3 4563-7, [id number], [id number] ####[facility]ORYCLIA [id number] [address] CSF TUBE NUMBER Sterile Container Normal [facility] Comment on above: Order Comment: Speci men Type: CEREBROSPINAL FLUID Performed By: #### 3 4563-7, [id number], [id number] ####[facility]ORYCLIA [id number] [address] RBC Manual cnt (CSF) [#/Vol] 117 cells/uL High 0-5 [facility] Comment on above: Order Comment: Speci men Type: CEREBROSPINAL FLUID Performed By: #### 3 4563-7, [id number], [id number] ####[facility]ORYCLIA [id number] [address] WBC Manual cnt (CSF) [#/Vol] 1 cells/uL Normal 0-5 [facility] Comment on above: Order Comment: Speci men Type: CEREBROSPINAL FLUID Performed By: #### 3 4563-7, [id number], [id number] ####[facility]ORYCLIA [id number] [address] Glucose CSF-mCncon 2 Glucose (CSF) [Mass/Vol] 82 mg/dL High 40-70 [facility] Comment on above: Order Comment: Speci men Type: CEREBROSPINAL FLUID Result Comment: Lumb ar CSF glucose values of healthy patients are approximately 60% of the plasma values and must always be compared with a concurrently measured plasma value for adequate clinical interpretation.References: 1. Glucose HK (GLUC3) [package insert V 12.0 [place]]. [facility], [place], [place]. September 2015. 2. Michelle Moore, Loki HGarfield (2015). Chapter 7: Glucose and Lactate. F. Irina rose al.(eds.), Cerebrospinal Fluid in Clinical Neurology. Bee: [employer] [employer]. Performed By: #### 2 342-4 ####[facility]ATORYCLIA [id number] [address] HEPATIC FUNCTION PNLon 06-02 Albumin [Mass/Vol] 3.2 g/dL Low 3.9-4.9 [facility] Comment on above: Order Comment: Speci men Type: BLOOD SPECIMEN Performed By: #### [place], [address]-6 ####[facility]ATORYCLIA [id number] [address] ALP [Catalytic activity/Vol] 67 U/L Normal 38-113 [facility] Comment on above: Order Comment: Speci men Type: BLOOD SPECIMEN Performed By: #### [place], [address]-8 ####[facility]ORYCLIA [id number] [address] [place] ALT With P-5'-P [Catalytic activity/Vol] 16 U/L Normal 10-54 [facility] Comment on above: Order Comment: Speci men Type: BLOOD SPECIMEN Performed By: #### [place], [address]-3 ####[facility]ORY[facility]IA [id number] [address] AST With P-5'-P [Catalytic activity/Vol] 25 U/L Normal 14-40 [facility] Comment on above: Order Comment: Speci men Type: BLOOD SPECIMEN Performed By: #### [place], [address]-7 ####[facility]ORYCLIA [id number] [address] Bilirubin [Mass/Vol] 0.2 mg/dL Normal 0.2-1.3 [facility] Comment on above: Order Comment: Speci men Type: BLOOD SPECIMEN Performed By: #### [place] KATHIE, 21634-9 ####[facility]ORYCLIA [id number] [address] Bilirubin.conjugated [Mass/Vol] mg/dL Normal <0.2 [facility] Comment on above: Order Comment: Speci men Type: BLOOD SPECIMEN Performed By: #### [place], [address]-9 ####[facility]ORYCLIA [id number] [address] Protein [Mass/Vol] 5.8 g/dL Low 6.3-8.0 [facility] Comment on above: Order Comment: Speci men Type: BLOOD SPECIMEN Performed By: #### [place], [address]-4 ####[facility]ORYCLIA [id number] [address] MRI BRAIN WO/W IVCONon 06-02 MRI BRAIN WO/W IVCON Normal [facility] Magnesium SerPl-mCncon 06-02 Magnesium [Mass/Vol] 2.0 mg/dL Normal 1.7-2.3 [facility] Comment on above: Order Comment: Speci men Type: BLOOD SPECIMEN Performed By: #### 2 4321-2, 67883-3, 2777-1 ####[facility]ATORYCLIA [id number] [address] [facility] Natriuretic peptide.B prohormone N-Terminal [Mass/Vol] 296 pg/mL High <125 [facility] Comment on above: Order Comment: Speci men Type: BLOOD SPECIMEN Performed By: #### [place], [address]33-6 ####[facility]ATORYCLIA [id number] [address] OF [facility] POTASSIUM BLDon 06-02-2021 Potassium [Moles/Vol] 3.2 mmol/L Low 3.7-5.1 [facility] Comment on above: Order Comment: Speci men Type: BLOOD SPECIMEN Performed By: #### K 1 ####[facility]ORYCLIA [id number] [address] Phosphate [facility] 06-02 Phosphate [Mass/Vol] 2.1 mg/dL Low 2.7-4.8 [facility] Comment on above: Order Comment: Speci men Type: BLOOD SPECIMEN Performed By: #### 2 4321-2, 74902-5, 2776-05 ####[facility]ATORYCLIA [id number] [address] [facility] Vancomycin random [Mass/Vol] on 06-02-2021 Vancomycin [Mass/Vol] 18.8 ug/mL Normal 10.0-20.0 [facility] Comment on above: Order Comment: Speci men Type: BLOOD SPECIMEN Result Comment: Refe rence ranges and high/low indicator flags are provided as general guidelines only. The treating physician must determine appropriate target levels/dosing based on the specific clinical situation. Performed By: #### 4 091-5 ####[facility]ATORYCLIA [id number] [address] [facility] ALLIED HEALTHon 06-01-[address] [facility] ALLIED HEALTH Normal [facility] ALLIED HEALTH Normal [facility] ARTERIAL BLOOD GASESon 06-01 Base excess Calc (Bld) [Moles/Vol] 1 mmol/L Normal 0-2 [facility] Comment on above: Order Comment: Speci men Type: ARTERIAL BLOOD SPECIMEN Performed By: #### A LLBG ####[facility]ORYCLIA [id number] [address] Body temperature 97.52 [degF] Normal [facility] Comment on above: Order Comment: Speci men Type: ARTERIAL BLOOD SPECIMEN Performed By: #### A LLBG ####[facility]ORYCLIA [id number] [address] CALCIUM IONIZED, PH CORRECTED 1.13 mmol/L Normal 1.08-1.30 [facility] Comment on above: Order Comment: Speci men Type: ARTERIAL BLOOD SPECIMEN Performed By: #### A LLBG ####[facility]ORYCLIA [id number] [address] STATES OF [facility] Calcium.ionized (BldV) [Mass/Vol] 1.12 mmol/L Normal 1.08-1.30 [facility] Comment on above: Order Comment: Speci men Type: ARTERIAL BLOOD SPECIMEN Performed By: #### A LLBG ####[facility]ORYCLIA [id number] [address] [facility] Carboxyhemoglobin (BldA) [Mass fraction] 1.6 % Normal 0.0-2.0 [facility] Comment on above: Order Comment: Speci men Type: ARTERIAL BLOOD SPECIMEN Result Comment: Carb oxyhemoglobin Reference Range for Smokers: 2.0-8.0% Performed By: #### A LLBG ####[facility]ORYCLIA [id number] [address] CO2 (Bld) [Partial pressure] 41 mm Hg Normal 36-46 [facility] Comment on above: Order Comment: Speci men Type: ARTERIAL BLOOD SPECIMEN Performed By: #### A LLBG ####[facility]ORYCLIA [id number] [address] CO2 [Moles/Vol] 23.0 mmol/L Normal 22-28 [facility] Comment on above: Order Comment: Speci men Type: ARTERIAL BLOOD SPECIMEN Performed By: #### A LLBG ####[facility]ORYCLIA [id number] [address] CO2 adjusted to patient's actual temperature (Bld) [Partial pressure] 40 mmHg Normal 36-46 [facility] Comment on above: Order Comment: Speci men Type: ARTERIAL BLOOD SPECIMEN Performed By: #### A LLBG ####[facility]ATORYCLIA [id number] [address] FIO2 40 % Normal [facility] Comment on above: Order Comment: Speci men Type: ARTERIAL BLOOD SPECIMEN Performed By: #### A LLBG ####[facility]ATORYCLIA [id number] [address] Glucose [Mass/Vol] 127 mg/dL High 60-105 [facility] Comment on above: Order Comment: Speci men Type: ARTERIAL BLOOD SPECIMEN Performed By: #### A LLBG ####[facility]ATORYCLIA [id number] [address] HCO3 (Bld) [Moles/Vol] 25 mmol/L Normal 22-26 [facility] Comment on above: Order Comment: Speci men Type: ARTERIAL BLOOD SPECIMEN Performed By: #### A LLBG ####[facility]ORYCLIA [id number] [address] Hematocrit (Bld) [Volume fraction] 33.7 % Low 39.0-51.0 [facility] Comment on above: Order Comment: Speci men Type: ARTERIAL BLOOD SPECIMEN Performed By: #### A LLBG ####[facility]ATORYCLIA [id number] [address] OF [place] Hemoglobin (Bld) [Mass/Vol] 10.9 g/dL Low 13.0-17.0 [facility] Comment on above: Order Comment: Speci men Type: ARTERIAL BLOOD SPECIMEN Performed By: #### A LLBG ####[facility]ORYCLIA [id number] [address] INHALED TIDAL VOLUME (ML) [address] [facility] Comment on above: Order Comment: Speci men Type: ARTERIAL BLOOD SPECIMEN Performed By: #### A LLBG ####[facility]ORYCLIA [id number] [address] INVASIVE VENTILATOR MODE PRVC=Pressure Regulated Volume Control Normal [facility] Comment on above: Order Comment: Speci men Type: ARTERIAL BLOOD SPECIMEN Performed By: #### A LLBG ####[facility]ORYCLIA [id number] [address] Methemoglobin (Bld) [Mass fraction] % Normal 0.0-1.5 [facility] Comment on above: Order Comment: Speci men Type: ARTERIAL BLOOD SPECIMEN Performed By: #### A LLBG ####[facility]ORYCLIA [id number] [address] OF [place] O2 THERAPY Ventilator Normal [facility] Comment on above: Order Comment: Speci men Type: ARTERIAL BLOOD SPECIMEN Performed By: #### A LLBG ####[facility]ORYCLIA [id number] [address] OF [place] Oxygen (Bld) [Partial pressure] 64 mm Hg Low 85-95 [facility] Comment on above: Order Comment: Speci men Type: ARTERIAL BLOOD SPECIMEN Performed By: #### A LLBG ####[facility]ORYCLIA [id number] [address] Oxygen adjusted to patient's actual temperature (Bld) [Partial pressure] 61.8 mmHg Low 85-95 [facility] Comment on above: Order Comment: Speci men Type: ARTERIAL BLOOD SPECIMEN Performed By: #### A LLBG ####[facility]ORYCLIA [id number] [place] [address] OXYGEN SATURATION, ARTERIAL 94 % Low 95-98 [facility] Comment on above: Order Comment: Speci men Type: ARTERIAL BLOOD SPECIMEN Performed By: #### A LLBG ####[facility]ORYCLIA [id number] [address] Oxyhemoglobin (BldA) [Mass fraction] 92 % Low 95-98 [facility] Comment on above: Order Comment: Speci men Type: ARTERIAL BLOOD SPECIMEN Performed By: #### A LLBG ####[facility]ATORYCLIA [id number] [address] PEEP/CPAP [address] [facility] Comment on above: Order Comment: Speci men Type: ARTERIAL BLOOD SPECIMEN Performed By: #### A LLBG ####[facility]ATORYCLIA [id number] [address] pH (Bld) 7.40 [pH] Normal 7.35-7.45 [facility] Comment on above: Order Comment: Speci men Type: ARTERIAL BLOOD SPECIMEN Performed By: #### A LLBG ####[facility]ORATORYCLIA [id number] [address] pH adjusted to patient's actual temperature (Bld) 7.41 Normal 7.35-7.45 [facility] Comment on above: Order Comment: Speci men Type: ARTERIAL BLOOD SPECIMEN Performed By: #### A LLBG ####[facility]ORYCLIA [id number] [address] Potassium [Moles/Vol] 3.1 mmol/L Low 3.5-5.0 [facility] Comment on above: Order Comment: Speci men Type: ARTERIAL BLOOD SPECIMEN Performed By: #### A LLBG ####[facility]ATORYCLIA [id number] [address] SET VENTILATOR RESPIRATORY RATE (BPM) [address] [facility] Comment on above: Order Comment: Speci men Type: ARTERIAL BLOOD SPECIMEN Performed By: #### A LLBG ####[facility]ORYCLIA [id number] [address] Sodium [Moles/Vol] 141 mmol/L Normal 136-144 [facility] Comment on above: Order Comment: Speci men Type: ARTERIAL BLOOD SPECIMEN Performed By: #### A LLBG ####[facility]ORYCLIA [id number] [address] BASE DEFICIT, ARTERIAL -1.0 mmol/L Normal -2-0 [facility] Comment on above: Order Comment: Speci men Type: ARTERIAL BLOOD SPECIMEN Performed By: #### A LLBG ####[facility]ORYCLIA [id number] [address] Body temperature 98.24 [degF] Normal [facility] Comment on above: Order Comment: Speci men Type: ARTERIAL BLOOD SPECIMEN Performed By: #### A LLBG ####[facility]ORYCLIA [id number] [address] CALCIUM IONIZED, PH CORRECTED 1.08 mmol/L Normal 1.08-1.30 [facility] Comment on above: Order Comment: Speci men Type: ARTERIAL BLOOD SPECIMEN Performed By: #### A LLBG ####[facility]ORYCLIA [id number] [address] Calcium.ionized (BldV) [Mass/Vol] 1.15 mmol/L Normal 1.08-1.30 [facility] Comment on above: Order Comment: Speci men Type: ARTERIAL BLOOD SPECIMEN Performed By: #### A LLBG ####[facility]ORYCLIA [id number] [address] Carboxyhemoglobin (BldA) [Mass fraction] 1.4 % Normal 0.0-2.0 [facility] Comment on above: Order Comment: Speci men Type: ARTERIAL BLOOD SPECIMEN Result Comment: Carb oxyhemoglobin Reference Range for Smokers: 2.0-8.0% Performed By: #### A LLBG ####[facility]ATORYCLIA [id number] [place], [place] [id number] [place] [address] CO2 (Bld) [Partial pressure] 59 mm Hg High 36-46 [facility] Comment on above: Order Comment: Speci men Type: ARTERIAL BLOOD SPECIMEN Performed By: #### A LLBG ####[facility]ATORYCLIA [id number] [place], [place] [address] [place] [address] [place] CO2 [Moles/Vol] 24.5 mmol/L Normal 22-28 [facility] Comment on above: Order Comment: Speci men Type: ARTERIAL BLOOD SPECIMEN Performed By: #### A LLBG ####[facility]ORYCLIA [id number] [address] CO2 adjusted to patient's actual temperature (Bld) [Partial pressure] 58 mmHg High 36-46 [facility] Comment on above: Order Comment: Speci men Type: ARTERIAL BLOOD SPECIMEN Performed By: #### A LLBG ####[facility]ORYCLIA [id number] [address] [place] FIO2 40 % Normal [facility] Comment on above: Order Comment: Speci men Type: ARTERIAL BLOOD SPECIMEN Performed By: #### A LLBG ####[facility]ORYCLIA [id number] [address] Glucose [Mass/Vol] 128 mg/dL High 60-105 [facility] Comment on above: Order Comment: Speci men Type: ARTERIAL BLOOD SPECIMEN Performed By: #### A LLBG ####[facility]ORYCLIA [id number] [address] HCO3 (Bld) [Moles/Vol] 26 mmol/L Normal 22-26 [facility] Comment on above: Order Comment: Speci men Type: ARTERIAL BLOOD SPECIMEN Performed By: #### A LLBG ####[facility]ORYCLIA [id number] [address] OF [place] Hematocrit (Bld) [Volume fraction] 35.6 % Low 39.0-51.0 [facility] Comment on above: Order Comment: Speci men Type: ARTERIAL BLOOD SPECIMEN Performed By: #### A LLBG ####[facility]ORYCLIA [id number] [address] Hemoglobin (Bld) [Mass/Vol] 11.5 g/dL Low 13.0-17.0 [facility] Comment on above: Order Comment: Speci men Type: ARTERIAL BLOOD SPECIMEN Performed By: #### A LLBG ####[facility]ORYCLIA [id number] [address] OF [place] INHALED TIDAL VOLUME (ML) [address] [facility] Comment on above: Order Comment: Speci men Type: ARTERIAL BLOOD SPECIMEN Performed By: #### A LLBG ####[facility]ATORYCLIA [id number] [address] INVASIVE VENTILATOR MODE PRVC=Pressure Regulated Volume Control [facility] Comment on above: Order Comment: Speci men Type: ARTERIAL BLOOD SPECIMEN Performed By: #### A LLBG ####[facility]ORYCLIA [id number] [address] OF [facility] Methemoglobin (Bld) [Mass fraction] % Normal 0.0-1.5 [facility] Comment on above: Order Comment: Speci men Type: ARTERIAL BLOOD SPECIMEN Performed By: #### A LLBG ####[facility]ORYCLIA [id number] [address] O2 THERAPY Ventilator Normal [facility] Comment on above: Order Comment: Speci men Type: ARTERIAL BLOOD SPECIMEN Performed By: #### A LLBG ####[facility]ORYCLIA [id number] [address] Oxygen (Bld) [Partial pressure] 88 mm Hg Normal 85-95 [facility] Comment on above: Order Comment: Speci men Type: ARTERIAL BLOOD SPECIMEN Performed By: #### A LLBG ####[facility]ORYCLIA [id number] [address] Oxygen adjusted to patient's actual temperature (Bld) [Partial pressure] 86.5 mmHg Normal 85-95 [facility] Comment on above: Order Comment: Speci men Type: ARTERIAL BLOOD SPECIMEN Performed By: #### A LLBG ####[facility]ORYCLIA [id number] [address] OXYGEN SATURATION, ARTERIAL 95 % Normal 95-98 [facility] Comment on above: Order Comment: Speci men Type: ARTERIAL BLOOD SPECIMEN Performed By: #### A LLBG ####[facility]ORYCLIA [id number] [address] Oxyhemoglobin (BldA) [Mass fraction] 93 % Low 95-98 [facility] Comment on above: Order Comment: Speci men Type: ARTERIAL BLOOD SPECIMEN Performed By: #### A LLBG ####[facility]ORYCLIA [id number] [address] PEEP/CPAP [address] [facility] Comment on above: Order Comment: Speci men Type: ARTERIAL BLOOD SPECIMEN Performed By: #### A LLBG ####[facility]ORYCLIA [id number] [address] OF [facility] pH (Bld) 7.27 [pH] Low 7.35-7.45 [facility] Comment on above: Order Comment: Speci men Type: ARTERIAL BLOOD SPECIMEN Performed By: #### A LLBG ####[facility]ORYCLIA [id number] [address] pH adjusted to patient's actual temperature (Bld) 7.28 Low 7.35-7.45 [facility] Comment on above: Order Comment: Speci men Type: ARTERIAL BLOOD SPECIMEN Performed By: #### A LLBG ####[facility]ORYCLIA [id number] [address] Potassium [Moles/Vol] 3.3 mmol/L Low 3.5-5.0 [facility] Comment on above: Order Comment: Speci men Type: ARTERIAL BLOOD SPECIMEN Performed By: #### A LLBG ####[facility]ORYCLIA [id number] [address] SET VENTILATOR RESPIRATORY RATE (BPM) [address] [facility] Comment on above: Order Comment: Speci men Type: ARTERIAL BLOOD SPECIMEN Performed By: #### A LLBG ####[facility]ORYCLIA [id number] [address] Sodium [Moles/Vol] 141 mmol/L Normal 136-144 [facility] Comment on above: Order Comment: Speci men Type: ARTERIAL BLOOD SPECIMEN Performed By: #### A LLBG ####[facility]ORYCLIA [id number] [address] Bacteria CSF Culton 06-01-19 22 Bacteria identified Cx Nom (CSF) CULTURE, CSF: No growth 14 days GRAM STAIN: No organisms seen Rare Polymorphonuclear leukocytes Moderate Red Blood Cells Gram stain performed on cytospun specimen. Normal [facility] Comment on above: Performed By: #### 6 06-4 ####[facility]ORYCLIA [id number] [address] Bacteria Spec Resp Culton Bacteria identified Respiratory culture Nom (Unsp spec) CULTURE, RESPIRATORY: No growth 2 days GRAM STAIN: No organisms seen No Polymorphonuclear Leukocytes Normal [facility] Comment on above: Performed By: #### 3 2355-0 ####[facility]ORYCLIA [id number] [address] Basic metabolic 2000 panelon 06-01-2021 Anion gap [Moles/Vol] 8 mmol/L Low 9-18 [facility] Comment on above: Order Comment: Speci men Type: BLOOD SPECIMEN Performed By: #### 2 4321-2, 94233-4, 2777-1 ####[facility]ORYCLIA [id number] [address] [place] Calcium [Mass/Vol] 7.8 mg/dL Low 8.5-10.2 [facility] Comment on above: Order Comment: Speci men Type: BLOOD SPECIMEN Performed By: #### 2 4321-2, , 2776-05 ####[facility]ORYCLIA [id number] [address] STATES [facility] Chloride [Moles/Vol] 109 mmol/L High 97-105 [facility] Comment on above: Order Comment: Speci men Type: BLOOD SPECIMEN Performed By: #### 2 4321-2, , 2776-05 ####[facility]ORYCLIA [id number] [address] [place] CO2 [Moles/Vol] 26 mmol/L Normal 22-30 [facility] Comment on above: Order Comment: Speci men Type: BLOOD SPECIMEN Performed By: #### 2 4321-2, , 2776-05 ####[facility]ORYCLIA [id number] [address] STATES OF [facility] Creatinine [Mass/Vol] 0.82 mg/dL Normal 0.73-1.22 [facility] Comment on above: Order Comment: Speci men Type: BLOOD SPECIMEN Performed By: #### 2 4321-2, , 2776-05 ####[facility]ORYCLIA [id number] [address] [place] GFR/1.73 sq M.predicted MDRD (S/P/Bld) [Vol rate/Area] mL/min/{1.73_m2} Normal [facility] Comment on above: Order [...] Performed By: #### 2 4320-2, , 2776-05 ####[facility]ATORYCLIA [id number] [place] [address] [place] Glucose [Mass/Vol] 105 mg/dL High 74-99 [facility] Comment on above: Order Comment: Speci men Type: BLOOD SPECIMEN Result Comment: The [place] [employer] (ADA) provides guidance for cutoff [...] Standards of Medical Care in Diabetes 2016, [place] [employer]. Diabetes Care. 2016.39(Suppl 1). Performed By: #### 2 4320-2, , 2776-05 ####[facility]ATORYCLIA [id number] [place] [address] [place] Potassium [Moles/Vol] 3.8 mmol/L Normal 3.7-5.1 [facility] Comment on above: Order Comment: Speci men Type: BLOOD SPECIMEN Performed By: #### 2 4320-2, , 2776-05 ####[facility]ORYCLIA [id number] [place] [address] [place] Sodium [Moles/Vol] 143 mmol/L Normal 136-144 [facility] Comment on above: Order Comment: Speci men Type: BLOOD SPECIMEN Performed By: #### 2 4320-2, , 2776-05 ####[facility]ORYCLIA [id number] [place] [address] [place] Urea nitrogen [Mass/Vol] 15 mg/dL Normal 9-24 [facility] Comment on above: Order Comment: Speci men Type: BLOOD SPECIMEN Performed By: #### 2 4321-2, 82925-5, 2777-1 ####[facility]ORYCLIA [id number] [address] CBC panel Auto (Bld)on 06-01 Erythrocyte distribution width (RBC) [Ratio] 15.4 % High 11.5-15.0 [facility] Comment on above: Order Comment: Speci men Type: BLOOD SPECIMEN Performed By: #### 5 8410-2 ####[facility]ORYCLIA [id number] [address] Hematocrit (Bld) [Volume fraction] 38.4 % Low 39.0-51.0 [facility] Comment on above: Order Comment: Speci men Type: BLOOD SPECIMEN Performed By: #### 5 8410-2 ####[facility]ORYCLIA [id number] [address] Hemoglobin (Bld) [Mass/Vol] 11.1 g/dL Low 13.0-17.0 [facility] Comment on above: Order Comment: Speci men Type: BLOOD SPECIMEN Performed By: #### 5 8410-2 ####[facility]ORYCLIA [id number] [address] MCH (RBC) [Entitic mass] 26.9 pg Normal 26.0-34.0 [facility] Comment on above: Order Comment: Speci men Type: BLOOD SPECIMEN Performed By: #### 5 8410-2 ####[facility]ORYCLIA [id number] [address] MCHC (RBC) [Mass/Vol] 28.9 g/dL Low 30.5-36.0 [facility] Comment on above: Order Comment: Speci men Type: BLOOD SPECIMEN Performed By: #### 5 8410-2 ####[facility]ORYCLIA [id number] [address] MCV (RBC) [Entitic vol] 93.2 fL Normal 80.0-100.0 [facility] Comment on above: Order Comment: Speci men Type: BLOOD SPECIMEN Performed By: #### 5 8410-2 ####[facility]ORYCLIA [id number] [address] Nucleated RBC (Bld) [#/Vol] 10*3/uL Normal <0.01 [facility] Comment on above: Order Comment: Speci men Type: BLOOD SPECIMEN Performed By: #### 5 8410-2 ####[facility]ORYCLIA [id number] [address] Platelet mean volume (Bld) [Entitic vol] 10.2 fL Normal 9.0-12.7 [facility] Comment on above: Order Comment: Speci men Type: BLOOD SPECIMEN Performed By: #### 5 8410-2 ####[facility]ORYCLIA [id number] [address] Platelets (Bld) [#/Vol] 231 10*3/uL Normal 150-400 [facility] Comment on above: Order Comment: Speci men Type: BLOOD SPECIMEN Performed By: #### 5 8410-2 ####[facility]ORYCLIA [id number] [address] RBC (Bld) [#/Vol] 4.12 10*6/uL Low 4.20-6.00 [facility] Comment on above: Order Comment: Speci men Type: BLOOD SPECIMEN Performed By: #### 5 8410-2 ####[facility]ATORYCLIA [id number] [address] OF [facility] WBC (Bld) [#/Vol] 10.99 10*3/uL Normal 3.70-11.00 [facility] Comment on above: Order Comment: Speci men Type: BLOOD SPECIMEN Performed By: #### 5 8410-2 ####[facility]ORYCLIA [id number] [address] CONSULT PROGon 06-01-[address] [facility] CSF MANUAL DIFFon 06-01-2021 DIF TTL, CSF [address] [facility] Comment on above: Order Comment: Speci men Type: CEREBROSPINAL FLUID Performed By: #### 3 4563-7, [id number] ####[facility]ATORYCLIA [id number] [place], [place] [id number] [place] [address] LYMPH%, CSF 11 % Low 50-90 [facility] Comment on above: Order Comment: Speci men Type: CEREBROSPINAL FLUID Performed By: #### 3 4563-7, [id number] ####[facility]ORYCLIA [id number] [address] OF [facility] MONO%, CSF 10 % Normal 10-50 [facility] Comment on above: Order Comment: Speci men Type: CEREBROSPINAL FLUID Performed By: #### 3 4563-7, [id number] ####[facility]ORYCLIA [id number] [address] [place] NEUT%, CSF 79 % High 0-3 [facility] Comment on above: Order Comment: Speci men Type: CEREBROSPINAL FLUID Performed By: #### 3 4563-7, [id number] ####[facility]ORYCLIA [id number] [address] [facility] CT BRAIN WO IVCONon 06-01-19 CT BRAIN WO IVCON Normal [facility] Cell count panel (CSF)on Clarity (CSF) Clear Normal Clear [facility] Comment on above: Order Comment: Speci men Type: CEREBROSPINAL FLUID Performed By: #### 3 4563-7, [id number] ####[facility]ORYCLIA [id number] [address] Clarity (Unsp spec) Not Indicated Normal Clear [facility] Comment on above: Order Comment: Speci men Type: CEREBROSPINAL FLUID Performed By: #### 3 4563-7, [id number] ####[facility]ORYCLIA [id number] [address] Color (CSF) Colorless Normal Colorless [facility] Comment on above: Order Comment: Speci men Type: CEREBROSPINAL FLUID Performed By: #### 3 4563-7, [id number] ####[facility]ORYCLIA [id number] [address] Color (Spun CSF) Not Indicated Normal Colorless [facility] Comment on above: Order Comment: Speci men Type: CEREBROSPINAL FLUID Performed By: #### 3 4563-7, [id number] ####[facility]ORYCLIA [id number] [address] CSF TUBE NUMBER Sterile Container Normal [facility] Comment on above: Order Comment: Speci men Type: CEREBROSPINAL FLUID Performed By: #### 3 4563-7, [id number] ####[facility]ORYCLIA [id number] [address] RBC Manual cnt (CSF) [#/Vol] 171 cells/uL High 0-5 [facility] Comment on above: Order Comment: Speci men Type: CEREBROSPINAL FLUID Performed By: #### 3 4563-7, [id number] ####[facility]ORYCLIA [id number] [address] WBC Manual cnt (CSF) [#/Vol] 5 cells/uL Normal 0-5 [facility] Comment on above: Order Comment: Speci men Type: CEREBROSPINAL FLUID Performed By: #### 3 4563-7, [id number] ####[facility]ORYCLIA [id number] [address] [place] FUNGAL CULTUREon 06-01-2021 FUNGAL CULTURE CULTURE, FUNGAL: No Fungus isolated after [address] [facility] Comment on above: Performed By: #### F CUL ####[facility]ATORYCLIA [id number] [address] [place] Glucose CSF-mCncon Glucose (CSF) [Mass/Vol] 78 mg/dL High 40-70 [facility] Comment on above: Order Comment: Speci men Type: CEREBROSPINAL FLUID Result Comment: Lumb ar CSF glucose values of healthy patients are approximately 60% of the plasma values and must always be compared with a concurrently measured plasma value for adequate clinical interpretation.References: 1. Glucose HK (GLUC3) [package insert V 12.0 Lebanese]. [employer], [place], [place]. September 2015. 2. Michelle Moore, Michelle Manjarrez (2015). Chapter 7: Glucose and Lactate. F. Irina rose al.(eds.), Cerebrospinal Fluid in Clinical Neurology. Bee: [employer]. Performed By: #### 2 342-4, 2880-3 ####[facility]ATORYCLIA [id number] [address] [place] HERPES SIMPLEX CSFon 022 HERPES SIMPLEX CSF HSV PCR SPEC SOURCE: Cerebrospinal Fluid HSV-1: Negative for Herpes Simplex Virus Type 1 by PCR HSV-2: Negative for Herpes Simplex Virus Type [address] [facility] Comment on above: Performed By: #### [facility] ####[facility] LAB REFERENCE LABCLIA [id number] [id number] [address] [place] Lactate (Bld) [Moles/Vol]on 06-01-2021 Lactate [Moles/Vol] 0.5 mmol/L Normal 0.5-2.2 [facility] Comment on above: Order Comment: Speci men Type: BLOOD SPECIMEN Performed By: #### 3 2693-4 ####[facility]ORYCLIA [id number] [address] [place] MENINGITIS ENCEPHALITIS BIOF IREon 06-01-2021 MENINGITIS ENCEPHALITIS BIOFIRE Negative Normal [facility] Comment on above: Order Comment: Speci men Type: CEREBROSPINAL FLUID Performed By: #### M GEBF ####[facility]ITALCLIA [id number] [place] [address] Magnesium SerPl-mCncon 06-01 Magnesium [Mass/Vol] 2.2 mg/dL Normal 1.7-2.3 [facility] Comment on above: Order Comment: Speci men Type: BLOOD SPECIMEN Performed By: #### 2 4321-2, 13741-3, 2776- ####[facility]ATORYCLIA [id number] [address] Microorganism Spec Culton Microorganism identified Cx Nom (Unsp spec) CULTURE, AFB: No Acid Fast Bacilli isolated after 42 days AFB STAIN: No acid fast bacilli seen by flurochrome stain Normal [facility] Comment on above: Performed By: #### 1 1475-1 ####[facility]ATORYCLIA [id number] [address] PROCALCITONIN (LAB)on 2021 Procalcitonin [Mass/Vol] 0.08 ng/mL Normal <0.09 [facility] Comment on above: Order Comment: Speci men Type: BLOOD SPECIMEN Result Comment: For a guided interpretation of test results, please visit the [facility] in Procalcitonin Calculator, [email or web address]. Performed By: #### P ROCAL ####[facility]ATORYCLIA [id number] [address] Phosphate SerPl-ncon 06-01 Phosphate [Mass/Vol] 3.5 mg/dL Normal 2.7-4.8 [facility] Comment on above: Order Comment: Speci men Type: BLOOD SPECIMEN Performed By: #### 2 4321-2, 54439-8, 2776-05 ####[facility]ATORYCLIA [id number] [address] [place] Prot CSF-mCncon 06-01-2021 Protein (CSF) [Mass/Vol] 52 mg/dL High 15-45 [facility] Comment on above: Order Comment: Speci men Type: CEREBROSPINAL FLUID Performed By: #### 2 342-4, 2880-3 ####[facility]ATORYCLIA [id number] [address] [place] Vancomycin random [Mass/Vol] on 06-01-2021 Vancomycin [Mass/Vol] 14.6 ug/mL Normal 10.0-20.0 [facility] Comment on above: Order Comment: Speci men Type: BLOOD SPECIMEN Result Comment: Refe rence ranges and high/low indicator flags are provided as general guidelines only. The treating physician must determine appropriate target levels/dosing based on the specific clinical situation. Performed By: #### 4 091-5 ####[facility]ATORYCLIA [id number] [address] STATES OF [facility] XR CHEST 1V FRONTALon 2021 XR CHEST 1V FRONTAL Normal [facility] XR CHEST 1V FRONTAL Normal [facility] XR NECK SOFT TISSUE 2V AP/LA Ton 06-01-2021 XR NECK SOFT TISSUE 2V AP/LAT Normal [facility] XR SKULL 2V AP/LATon 022 XR SKULL 2V AP/LAT Normal [facility] ALLIED HEALTHon 05-31-2021 ALLIED HEALTH HNO ID: [id number] Author: Christina Lynne RT(R) Service: Radiology Author Type: Technologist Type: Allied Health Filed: 05/31/2021 5:48 PM Note Text: MRI tomorrow per RN. Normal [facility] HEALTH Normal [facility] ALLIED HEALTH Normal [facility] HEALTH Normal [facility] ANES POSTPROC EVALon 022 ANES POSTPROC EVAL Normal [facility] ANES PRE-OPon 05-31-2021 ANES PRE-OP Normal [facility] BRIEF OP NOTon 05-31-2021 BRIEF OP NOT Normal [facility] Bacteria Bld Culton 05-31-19 22 Bacteria identified Cx Nom (Bld) CULTURE, BLOOD: No growth [address] [facility] Comment on above: Performed By: #### 6 00-7 ####[facility]ORYCLIA [id number] [address] OF [facility] Bacteria CSF Culton 05-31-19 22 Bacteria identified Cx Nom (CSF) CULTURE, CSF: No growth 14 days GRAM STAIN: No organisms seen Rare Polymorphonuclear leukocytes Rare Red Blood Cells Gram stain performed on cytospun specimen. Normal [facility] Comment on above: Performed By: #### 6 06-4 ####[facility]ATORYCLIA [id number] [address] OF [facility] Basic metabolic 2000 panelon 05-31-2021 Anion gap [Moles/Vol] 9 mmol/L Normal 9-18 [facility] Comment on above: Order Comment: Speci men Type: BLOOD SPECIMEN Performed By: #### 2 777-1, 16504-1, ####[facility]ORYCLIA [id number] [address] [place] Calcium [Mass/Vol] 8.2 mg/dL Low 8.5-10.2 [facility] Comment on above: Order Comment: Speci men Type: BLOOD SPECIMEN Performed By: #### 2 777-1, 50326-6, ####[facility]ORYCLIA [id number] [address] STATES OF [facility] Chloride [Moles/Vol] 110 mmol/L High 97-105 [facility] Comment on above: Order Comment: Speci men Type: BLOOD SPECIMEN Performed By: #### 2 777-1, , ####[facility]ORYCLIA [id number] [address] [place] CO2 [Moles/Vol] 27 mmol/L Normal 22-30 [facility] Comment on above: Order Comment: Speci men Type: BLOOD SPECIMEN Performed By: #### 2 777-1, 74776-7, ####[facility]ORYCLIA [id number] [address] [place] Creatinine [Mass/Vol] 0.85 mg/dL Normal 0.73-1.22 [facility] Comment on above: Order Comment: Speci men Type: BLOOD SPECIMEN Performed By: #### 2 777-1, 22232-9, ####[facility]ATORYCLIA [id number] [place] [address] [place] GFR/1.73 sq M.predicted MDRD (S/P/Bld) [Vol rate/Area] mL/min/{1.73_m2} Normal [facility] Comment on above: Order [...] actual GFR. Performed By: #### 2 777-1, 82895-3, 79221-2 ####[facility]ATORYCLIA [id number] [place] [address] [place] Glucose [Mass/Vol] 111 mg/dL High 74-99 [facility] Comment on above: Order Comment: Speci men Type: BLOOD SPECIMEN Result Comment: The [place] Diabetes Association (ADA) provides guidance for cutoff [...] Standards of Medical Care in Diabetes 2016, [place] [employer]. Diabetes Care. 2016.39(Suppl 1). Performed By: #### 2 777-1, 93707-3, 77756-0 ####[facility]ATORYCLIA [id number] [place] [address] [place] Potassium [Moles/Vol] 3.7 mmol/L Normal 3.7-5.1 [facility] Comment on above: Order Comment: Speci men Type: BLOOD SPECIMEN Performed By: #### 2 777-1, 13882-3, ####[facility]ATORYCLIA [id number] [address] Sodium [Moles/Vol] 146 mmol/L High 136-144 [facility] Comment on above: Order Comment: Speci men Type: BLOOD SPECIMEN Performed By: #### 2 777-1, 41671-4, ####[facility]ORYCLIA [id number] [address] STATES OF [facility] Urea nitrogen [Mass/Vol] 16 mg/dL Normal 9-24 [facility] Comment on above: Order Comment: Speci men Type: BLOOD SPECIMEN Performed By: #### 2 777-1, 79084-6, ####[facility]ORYCLIA [id number] [address] [place] CASE MGT INIT ASSESon 2021 CASE MGT INIT ASSES Normal [facility] CBC W Auto Differential pane l (Bld)on 05-31-2021 Basophils (Bld) [#/Vol] 0.04 10*3/uL Normal <0.11 [facility] Comment on above: Order Comment: Speci men Type: BLOOD SPECIMEN Performed By: #### 5 7021-8 ####[facility]ATORYCLIA [id number] [address] Basophils/100 WBC (Bld) 0.5 % Normal [facility] Comment on above: Order Comment: Speci men Type: BLOOD SPECIMEN Performed By: #### 5 7021-8 ####[facility]ATORYCLIA [id number] [address] Differential cell count method Nom (Bld) Auto Normal [facility] Comment on above: Order Comment: Speci men Type: BLOOD SPECIMEN Performed By: #### 5 7021-8 ####[facility]ATORYCLIA [id number] [address] Eosinophils (Bld) [#/Vol] 0.27 10*3/uL Normal <0.46 [facility] Comment on above: Order Comment: Speci men Type: BLOOD SPECIMEN Performed By: #### 5 7021-8 ####[facility]ORYCLIA [id number] [address] Eosinophils/100 WBC (Bld) 3.3 % Normal [facility] Comment on above: Order Comment: Speci men Type: BLOOD SPECIMEN Performed By: #### 5 7021-8 ####[facility]ATORYCLIA [id number] [address] Erythrocyte distribution width (RBC) [Ratio] 15.4 % High 11.5-15.0 [facility] Comment on above: Order Comment: Speci men Type: BLOOD SPECIMEN Performed By: #### 5 7021-8 ####[facility]ATORYCLIA [id number] [address] Hematocrit (Bld) [Volume fraction] 37.9 % Low 39.0-51.0 [facility] Comment on above: Order Comment: Speci men Type: BLOOD SPECIMEN Performed By: #### 5 7021-8 ####[facility]ORYCLIA [id number] [address] Hemoglobin (Bld) [Mass/Vol] 11.5 g/dL Low 13.0-17.0 [facility] Comment on above: Order Comment: Speci men Type: BLOOD SPECIMEN Performed By: #### 5 7021-8 ####[facility]ATORYCLIA [id number] [address] IMMATURE GRAN % 0.4 % Normal [facility] Comment on above: Order Comment: Speci men Type: BLOOD SPECIMEN Performed By: #### 5 7021-8 ####[facility]ATORYCLIA [id number] [address] IMMATURE GRAN ABS 0.03 k/uL Normal <0.10 [facility] Comment on above: Order Comment: Speci men Type: BLOOD SPECIMEN Performed By: #### 5 7021-8 ####[facility]ORYCLIA [id number] [address] Lymphocytes (Bld) [#/Vol] 1.90 10*3/uL Normal 1.00-4.00 [facility] Comment on above: Order Comment: Speci men Type: BLOOD SPECIMEN Performed By: #### 5 7021-8 ####[facility]ORYCLIA [id number] [address] Lymphocytes/100 WBC (Bld) 23.0 % Normal [facility] Comment on above: Order Comment: Speci men Type: BLOOD SPECIMEN Performed By: #### 5 7021-8 ####[facility]ATORYCLIA [id number] [address] MCH (RBC) [Entitic mass] 28.0 pg Normal 26.0-34.0 [facility] Comment on above: Order Comment: Speci men Type: BLOOD SPECIMEN Performed By: #### 5 7021-8 ####[facility]ATORYCLIA [id number] [address] MCHC (RBC) [Mass/Vol] 30.3 g/dL Low 30.5-36.0 [facility] Comment on above: Order Comment: Speci men Type: BLOOD SPECIMEN Performed By: #### 5 7021-8 ####[facility]ORYCLIA [id number] [address] MCV (RBC) [Entitic vol] 92.4 fL Normal 80.0-100.0 [facility] Comment on above: Order Comment: Speci men Type: BLOOD SPECIMEN Performed By: #### 5 7021-8 ####[facility]ORYCLIA [id number] [address] Monocytes (Bld) [#/Vol] 0.60 10*3/uL Normal <0.87 [facility] Comment on above: Order Comment: Speci men Type: BLOOD SPECIMEN Performed By: #### 5 7021-8 ####[facility]ORYCLIA [id number] [address] Monocytes/100 WBC (Bld) 7.3 % Normal [facility] Comment on above: Order Comment: Speci men Type: BLOOD SPECIMEN Performed By: #### 5 7021-8 ####[facility]ORYCLIA [id number] [address] Neutrophils (Bld) [#/Vol] 5.41 10*3/uL Normal 1.45-7.50 [facility] Comment on above: Order Comment: Speci men Type: BLOOD SPECIMEN Performed By: #### 5 7021-8 ####[facility] LABORATORYCLIA [id number] [address] Neutrophils/100 WBC (Bld) 65.5 % Normal [facility] Comment on above: Order Comment: Speci men Type: BLOOD SPECIMEN Performed By: #### 5 7021-8 ####[facility]ORYCLIA [id number] [address] Nucleated RBC (Bld) [#/Vol] 10*3/uL Normal <0.01 [facility] Comment on above: Order Comment: Speci men Type: BLOOD SPECIMEN Performed By: #### 5 7021-8 ####[facility]ORYCLIA [id number] [address] Nucleated RBC/100 WBC (Bld) [Ratio] 0.0 /[address] [facility] Comment on above: Order Comment: Speci men Type: BLOOD SPECIMEN Performed By: #### 5 7021-8 ####[facility]ORYCLIA [id number] [address] Platelet mean volume (Bld) [Entitic vol] 9.8 fL Normal 9.0-12.7 [facility] Comment on above: Order Comment: Speci men Type: BLOOD SPECIMEN Performed By: #### 5 7021-8 ####[facility]ORYCLIA [id number] [address] Platelets (Bld) [#/Vol] 251 10*3/uL Normal 150-400 [facility] Comment on above: Order Comment: Speci men Type: BLOOD SPECIMEN Performed By: #### 5 7021-8 ####[facility]ORYCLIA [id number] [address] RBC (Bld) [#/Vol] 4.10 10*6/uL Low 4.20-6.00 [facility] Comment on above: Order Comment: Speci men Type: BLOOD SPECIMEN Performed By: #### 5 7021-8 ####[facility]ORYCLIA [id number] [address] WBC (Bld) [#/Vol] 8.25 10*3/uL Normal 3.70-11.00 [facility] Comment on above: Order Comment: Speci men Type: BLOOD SPECIMEN Performed By: #### 5 7021-8 ####[facility]ATORYCLIA [id number] [address] CONSULTon 05-31-[address] [facility] CONSULT Normal [facility] CONSULT Normal [facility] CT BRAIN WO IVCONon 05-31-[address] BRAIN WO IVCON Normal [facility] CT BRAIN WO IVCON Normal [facility] CT CHEST WO IVCONon 05-31-[address] CHEST WO IVCON Normal [facility] Cortis SerPl-mCncon 05-31-19 22 Cortisol [Mass/Vol] 31.0 ug/dL High AM: 5.3-22.5, PM: 3.4-16.8 [facility] Comment on above: Order Comment: Speci men Type: BLOOD SPECIMEN Result Comment: Prov ided reference range is from 6-10 AM sample collection time.Cortisol Reference Range: 6-10 AM = 4.8-19.5 ug/dL, 4-8 PM = 2.5-11.9 ug/dL Performed By: #### 2 143-6, 3016-3 ####[facility]ATORYCLIA [id number] [address] Cryptoc Ag Spec Ql LAon 05-08 Cryptococcus sp Ag LA Ql (Unsp spec) Negative Normal [facility] Comment on above: Performed By: #### 4 3228-6 ####[facility]ATORYCLIA [id number] [address] [place] HISTORY PHYSICALon [address] [facility] Magnesium SerPl-ncon 05-31 Magnesium [Mass/Vol] 2.2 mg/dL Normal 1.7-2.3 [facility] Comment on above: Order Comment: Speci men Type: BLOOD SPECIMEN Performed By: #### 2 777-1, 95345-9, 34073-8 ####[facility]ATORYCLIA [id number] [address] [place] NURSING PROGon 05-31-[address] [facility] NUTRITIONon 05-31-[address] [facility] OPERATIVE NOon 05-31-[address] [facility] Phosphate SerPl-mCncon 05-31 Phosphate [Mass/Vol] 3.3 mg/dL Normal 2.7-4.8 [facility] Comment on above: Order Comment: Speci men Type: BLOOD SPECIMEN Performed By: #### 2 777-1, 62165-7, ####[facility]ATORYCLIA [id number] [address] STAPH AUREUS PCRon 2 S. aureus and MRSA panel MEGAN+probe (Nose) Normal Negative [facility] Comment on above: Order Comment: Speci men Type: SWAB OF INTERNAL NOSE Result Comment: Nega tive for Staphylococcus aureus by PCR.Negative for MRSA by PCR Performed By: #### S APCR ####[facility]ATORYCLIA [id number] [address] [place] TSH SerPl-aCncon 05-31-2021 TSH Qn 0.829 m[IU]/L Normal 0.270-4.200 [facility] Comment on above: Order Comment: Speci men Type: BLOOD SPECIMEN Performed By: #### 2 143-6, 3016-3 ####[facility]ATORYCLIA [id number] [address] XR CHEST 1V FRONTALon 2021 XR CHEST 1V FRONTAL Normal [facility] XR CHEST 1V FRONTAL Normal [facility] Blood Cultureon 05-30-2021 Bacteria identified Cx Nom (Bld) Culture Result - No growth 5 days Normal [facility] Comment on above: Performed By: #### C AD #### [facility] [address] [place] [address] Bacteria identified Cx Nom (Bld) Sp. Request/Comment: - 8.2MLS Culture Result - No growth 5 days Normal [facility] Comment on above: Performed By: #### C AD #### [facility] [address] [place] [address] C-Reactive Proteinon 022 C-Reactive Protein 1.7 mg/dL High <0.9 [facility] Comment on above: Performed By: #### C RP ####[facility] [address] [place] [phone] CNDSon 05-30-2021 [facility] HNO ID: [id number] Author: Columba Carroll PA-C Service: Hospital Medicine Author Type: Physician Rn Lpn Cna Type: Discharge Summary Filed: 05/30/2021 12:49 PM Note Text: ----- Attestation signed by Ayaka Menjivar MD at 06/01/2021 12:53 PM Attending Note I have personally reviewed the PA/SALES SERVICE ASSISTANT note. Agree with above assessment and plan. [...] Team: Attending Provider: Ayaka Menjivar MD Physician Rn Lpn Cna: Columba Carroll PA-C Consulting: Lilo Mendoza MD [...] consulted. Neurology suggested empiric abx coverage for FINISH PHOTOGRAPHER infection Rocephin and Vancomycin was started. Tele-neuro also suggested an MRI brain be obtained prior to LP to check LANDSCAPE SUPERVISOR shunt and decrease risk of herniation in neurosurgery capable facility. Transfer to [facility] requested. Sepsis lactate was 1.3. ABG showed pO2 67.8, placed patient on 2L NC.Follow B1, B12, and RPR pending. Transitions of Care Critical Issues: - patient transferred for [facility] for management of possible FINISH PHOTOGRAPHER infection and herniation. LABS AND PROCEDURES PENDING [...] intravenously q 1 (more content not included)... [facility] CONSULTon 05-30-2021 CONSULT HNO ID: [id number] Author: Juan Carlos Mckenzie MD Service: Infectious [...] vertebrae with counting from the craniocervical junction. 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 CT CERVICAL SPINE WO (more content not included)... Normal [facility] CONSULT HNO ID: [id number] Author: Lilo Mendoza MD Service: Neurology General Author Type: Physician Type: Consults Filed: 05/30/2021 10:56 AM Note Text: [facility] TeleNeurology Consult Note Patient seen using Teleneurology Services. Recommendations are placed in the chart. Please review. For questions after hours, when teleneurologist is not available, for VENUS: Please Page [phone] for the [facility] from 12pm to 8Am Admitting Provider/Consulted by:Hermes Roca MD Time of Note:05/30/2021 Patient Name:Andrew Sifuentes Admit Date:05/29/2021 Hospital Day:0 CC: altered mental status History of Present Illness: Andrew R Gurpreet is a 71 year old unknown handed male with limited information about past medical history including venous insufficiency s/p EVLT, hydrocepalus s/p LANDSCAPE SUPERVISOR shunt in 1987 with multiple revisions [...] Reflexes Right Lef (more content not included)... [facility] CONSULT PROGon 05-30-2021 CONSULT PROG [facility] CONSULT PROG HNO ID: [id number] Author: Shannon Gutierres [facility] Service: Pharmacy Author Type: Pharmacist Type: Consult Progress Note Filed: 05/30/2021 2:35 PM Note Text: PHARMACY VANCOMYCIN DOSING NOTE Patient Name: Andrew Sifuentes Admission Date: 05/29/2021 Date of Consult: 05/30/2021 Time of Consult: 2:32 PM Indication: possible FINISH PHOTOGRAPHER infection Goal Range: 15-20 mcg/mL RECOMMENDATIONS/PLAN: Pharmacy [...] any questions, please contact inpatient pharmacy at 0320. Age: [age] year old Allergies: ALLERGIES Allergen [...] Levels: No results found for: IMANI Gutierres [facility] Normal [facility] Creatinineon 05-30-2021 Creatinine [Mass/Vol] 0.86 mg/dL Normal 0.73-1.22 [facility] Comment on above: Performed By: #### C RET1 ####[facility] Ycrvrklkcs0582 [address] eGFR- Amer. >60 Normal [facility] Comment on above: Performed By: #### C RET1 ####[facility] Uvntknbqth4974 [address] eGFR-All Other Races >60 Normal [facility] Comment on above: Result Comment: eGFR [...] at [email or web address]. Performed By: #### C RET1 ####[facility] [address] [place] [phone] Crypto Antigen Deton 022 Crypto Antigen Det Sp. Request/Comment: - SST Test Result - Duplicate request Account Credited [facility] Comment on above: Performed By: #### C AD #### [facility] [address] [place] [address] [facility] [address] [place] [address] Crypto Antigen Det Sp. Request/Comment: - SST Test Result - Cryptococcal antigen detection result: Negative By latex agglutination [facility] Comment on above: Performed By: #### C AD #### [facility] [address] [place] [id number] [facility] [address] [place] [address] ED NOTEon 05-30-2021 ED NOTE HNO ID: [id number] Author: Aletha Lopez RN Service: ? Author Type: Registered Nurse Type: ED Notes Filed: 05/29/2021 11:16 PM Note Text: Patient changed for incontinent urine, labs redrawn and sent. Patient aware of plan to be admitted and agrees with plan Normal [facility] HISTORY PHYSICALon HISTORY PHYSICAL Normal [facility] HISTORY PHYSICAL HNO ID: [id number] Author: Hermes Roca MD Service: Hospital Medicine Author Type: Physician Type: HANDP Filed: 05/30/2021 1:03 AM Note Text: DEPARTMENT OF HOSPITAL MEDICINE HISTORY AND PHYSICAL EXAM SERVICE DATE: 05/29/2021 SERVICE TIME: 11:18 PM Primary Care Physician: Mateus Burris MD NIGHT AND WEEKEND COVERAGE: Please page [phone] until 7:30am this morning. After 7:30am please check the treatment team banner and page the appropriate service. Subjective CHIEF COMPLAINT: Fall HPI: This is a 71 year old male with PMH of asthma, venous insufficiency s/p EVLT, obstructive hydrocepalus s/p LANDSCAPE SUPERVISOR shunt in 1987 with multiple revisions [...] recent imaging (more content not included)... Normal [facility] Magnesium SerPl-mCncon 05-30 Magnesium [Mass/Vol] 2.5 mg/dL High 1.7-2.3 [facility] Comment on above: Order Comment: Speci men Type: BLOOD SPECIMEN Performed By: #### 1 9123-9, 2777-1 ####[facility] [id number] [place] [address] [place] NURSING PROGon 05-30-2021 NURSING PROG HNO ID: [id number] Author: Precious Cervantes RN Service: ? Author Type: Registered Nurse Type: Nursing Progress Note Filed: 05/30/2021 11:26 AM Note Text: Nursing Progress Note Patient Name: Andrew Sifuentes Patient Location: [place] [id number]- Daily Note: 0700- Report received from night warehouse manager RN, patient resting in bed at this time, call light within reach, bed low and locked. Asked the patient to state his name because night warehouse manager RN was unable to complete his [...] This note was completed by: Precious Cervantes [facility] NURSING PROG HNO ID: [id number] Author: Lyubov Day RN Service: ? Author Type: Registered Nurse Type: Nursing Progress Note Filed: 05/30/2021 1:27 AM Note Text: Nursing Progress Note Patient Name: Andrew STACKN: [id number] Patient Location: [facility]-0217/[id number] 0100: Patient is unresponsive to questions. Patient [...] This note was completed by: Lyubov Day [facility] Phosphate SerPl-mCncon 05-30 Phosphate [Mass/Vol] 3.5 mg/dL Normal 2.7-4.8 [facility] Comment on above: Order Comment: Speci men Type: BLOOD SPECIMEN Performed By: #### 1 9123-9, 2777-1 ####[facility] [id number] [place] [address] [place] Sepsis Lactateon 05-30-2021 Sepsis Lactate 1.5 mmol/L Normal 0.5-2.0 [facility] Comment on above: Performed By: #### S LACT ####[facility] [address] [place] [phone] Syphilis Ttl w/Reflxon 05-30 Syphilis Interp Cannot exclude recen t Treponemal infection if specimen collected within 7 to 10 days after appearance of suspect lesions or 2 to 3 weeks after an exposure. Clinical correlation is required. [facility] Comment on above: Performed By: #### S SAMUEL RUCKER ####[facility] [place], [place] [phone] Syphilis Screen Rslt Non-Reactive Normal Non Reactive [facility] Comment on above: Performed By: #### S SAMUEL RUCKER ####[facility] [place], [place] [phone] THERAPY NTon 05-30-2021 THERAPY NT HNO ID: [id number] Author: Bette Jimenez OTR/L Service: Occupational Therapy Author Type: Occupational Therapist Type: Therapy (PT/OT/Speech/Resp) Filed: 05/30/2021 10:29 AM Note Text: OCCUPATIONAL THERAPY MISSED VISIT SERVICE DATE: 05/30/2021 SERVICE TIME: 1017 to 1019 ROOM: [place] [address] Attempted Evaluation. Patient not seen due to Not following commands. Per nursing patient was seen by neuro and they are talking about having him transferred to [facility] secondary to shunt concerns. Will re attempt in the event patient continues to be admitted at [place] and is able to participate. SIGNATURE: RADHA Andres/L PATIENT NAME: Andrew Sifuentes DATE: May 30, 2021 TIME: 10:21 AM Normal [facility] THERAPY NT HNO ID: [id number] Author: Bette Velasquez PT Service: Physical Therapy Author Type: Physical Therapist Type: Therapy (PT/OT/Speech/Resp) Filed: 05/30/2021 8:42 AM Note Text: PHYSICAL THERAPY MISSED VISIT SERVICE DATE: 05/30/2021 SERVICE TIME: 0840 to 0840 ROOM: [place] [address] Attempted Evaluation. Patient not seen due to (pt difficult to awake per RN, very lethargic). Will re-attempt when schedule permits. SIGNATURE: Bette Velasquez PT PATIENT NAME: Andrew Sifuentes DATE: May 30, 2021 TIME: 8:41 AM Normal [facility] Toxicology Screen,Uron 05-30 Amphetamines, Urine Negative Normal Negative [facility] Comment on above: Result Comment: Cuto ff threshold at 1000 ng/mL. Performed By: #### C AD #### [facility] [address] [place] [address] [facility] [address] [place], [place] [address] Barbiturates, Urine Negative Normal Negative [facility] Comment on above: Result Comment: Cuto ff threshold at 200 ng/mL. Performed By: #### C AD #### [facility] [place] [phone] [place] [address] Benzodiazepines, Ur Negative Normal Negative [facility] Comment on above: Result Comment: Cuto ff threshold at 200 ng/mL. Performed By: #### C AD #### [facility] [place] [phone] [place] [address] Cannabinoids, Urine Negative Normal Negative [facility] Comment on above: Result Comment: Cuto ff threshold at 50 ng/mL. Performed By: #### C AD #### [facility] [address] [place] [phone] Cocaine, Urine Negative Normal Negative [facility] Comment on above: Result Comment: Cuto ff threshold at 300 ng/mL. Performed By: #### C AD #### [facility] [address] [place], [place] [phone] [place] [address] Opiates, Urine Negative Normal Negative [facility] Comment on above: Result Comment: Cuto ff threshold at 300 ng/mL. Performed By: #### C AD #### [facility] [address] [place], [place] [phone] [place] [address] Oxycodone, Urine Negative Normal Negative [facility] Comment on above: Result Comment: Cuto ff [...] on the same specimen through Client Services ([phone]) if contacted within 48 hours of initial testing. [1]Substance Abuse and Mental Health Services Administration (2012). Clinical Drug Testing in Primary Care Technical Assistance Publication Series 32. Department of Health and Human Services, [place], p.10. Performed By: #### C AD #### [facility] [address] [place] [phone] Phencyclidine, Urine Negative Normal Negative [facility] Comment on above: Result Comment: Cuto ff threshold at 25 ng/mL. Performed By: #### C AD #### [facility] [address] [place] [phone] Troponin Ton 05-30-2021 Troponin T <0.010 Normal 0.000-0.029 [facility] Comment on above: Performed By: #### T NT ####[facility] [address] [place] [phone] Urinalysison 05-30-2021 Bilirubin, Urine Negative Normal Negative [facility] Comment on above: Performed By: #### C AD #### [facility] [address] [place] [phone] Clarity (U) Slightly Cloudy Critically abnormal Clear [facility] Comment on above: Performed By: #### C AD #### [facility] [address] [place] [phone] Color (U) Yellow Normal Yellow [facility] Comment on above: Performed By: #### C AD #### [facility] [address] [place], [place] [address] [place], [place] [address] Glucose Ql (U) Negative Normal Negative [facility] Comment on above: Performed By: #### C AD #### [facility] [address] [place] [address] [facility] [address] [place], [place] [address] Hemoglobin/Blood,Ur Negative Normal Negative [facility] Comment on above: Performed By: #### C AD #### [facility] [address] [place] [address] [facility] [address] [place], [place] [address] Ketones Ql (U) Negative Normal Negative [facility] Comment on above: Performed By: #### C AD #### [facility] [address] [place] [address] [facility] [address] [place], [place] [address] Leukest Negative Normal Negative [facility] Comment on above: Performed By: #### C AD #### [facility] [address] [place] [address] [facility] [address] [place], [place] [address] Nitrite Ql (U) Negative Normal Negative [facility] Comment on above: Performed By: #### C AD #### [facility] [address] [place] [address] [facility] [address] [place], [place] [address] pH (U) 8.5 [pH] High 5.0-8.0 [facility] Comment on above: Performed By: #### C AD #### [facility] [address] [place] [address] [facility] [address] [place], [place] [address] Protein, Urine Negative Normal Negative [facility] Comment on above: Performed By: #### C AD #### [facility] [address] [place] [address] [facility] [address] [place], [place] [address] Specific Frost, Ur 1.015 Normal 1.005-1.030 [facility] Comment on above: Performed By: #### C AD #### [facility] [address] [place] [address] [facility] [address] [place], [place] [address] Urobilinogen Qn (U) 0.2 {Marianne'U}/dL Normal 0.2-1.0 [facility] Comment on above: Performed By: #### C AD #### [facility] [address] [place] [address] [address] Vitamin B1, Whole Blon 05-30 Vitamin B1 (TDP), WB 207.1 nmol/L Normal 84.0-213.0 [facility] Comment on above: Result Comment: This assay measures the concentration of thiamine diphosphate (TDP), the primary active form of vitamin B1. Approximately 90 percent of vitamin B1 present in whole blood is TDP. Thiamine and thiamine monophosphate, which comprise the remaining 10 percent, are not measured. This test was developed and its performance characteristics determined by [facility]'s Isrrael Perez [facility] [place] ( [facility]). It has not been cleared or approved by the FDA. [facility] is regulated under CLIA as qualified to perform high complexity testing. This test is used for clinical purposes. It should not be regarded as investigational or for research. Performed By: #### S YPHTX, B1WB ####[facility] [place], [place] [phone] Vitamin B12on 05-30-2021 Cobalamin (Vitamin B12) [Mass/Vol] 494 pg/mL Normal 232-1245 [facility] Comment on above: Performed By: #### C AD #### [facility] [address] [place] [address] [place] [address] [place], [place] [address] ALLIED HEALTHon 05-29-2021 [facility] HNO ID: [id number] Author: RT Kitty(Lisa) Service: Radiology Author Type: Technologist Type: [facility] Filed: 05/29/2021 8:51 PM Note [...] RT Kitty(R) May 29, 2021 8:51 PM [facility] HNO ID: [id number] Author: Markie Fish Service: ? Author Type: Corporate Responsibility Officer Type: [facility] Filed: 05/29/2021 8:39 PM Note [...] Markie Fish May 29, 2021 8:38 PM [facility] CBC and Differentialon 05-29 Abs Baso 0.05 k/uL Normal <0.11 [facility] Comment on above: Performed By: #### C MP, MG1, CBCDIF ####[facility] [address] [place] [address] Abs Yuma 0.72 k/uL Normal <0.87 [facility] Comment on above: Performed By: #### C MP, MG1, CBCDIF ####[facility] [address] [place] [address] Abs Neut 7.86 k/uL High 1.45-7.50 [facility] Comment on above: Performed By: #### C MP, MG1, CBCDIF ####[place] [address] Absolute nRBC <0.01 Normal <0.01 [facility] Comment on above: Performed By: #### C MP, MG1, CBCDIF ####[place] [address] Basophils/100 WBC (Bld) 0.5 % [facility] Comment on above: Performed By: #### C MP, MG1, CBCDIF ####[place] [address] DTYPE Auto Diff Normal [facility] Comment on above: Performed By: #### C MP, MG1, CBCDIF ####[place] [address] Eosinophils (Bld) [#/Vol] 0.10 10*3/uL Normal <0.46 [facility] Comment on above: Performed By: #### C MP, MG1, CBCDIF ####[place] [address] Eosinophils/100 WBC (Bld) 0.9 % [facility] Comment on above: Performed By: #### C MP, MG1, CBCDIF ####[place] [address] Erythrocyte distribution width (RBC) [Ratio] 15.5 % High 11.5-15.0 [facility] Comment on above: Performed By: #### C MP, MG1, CBCDIF ####[place] [address] Hematocrit (Bld) [Volume fraction] 41.6 % Normal 39.0-51.0 [facility] Comment on above: Performed By: #### C MP, MG1, CBCDIF ####[facility] [address] [place] [address] Hemoglobin (Bld) [Mass/Vol] 12.7 g/dL Low 13.0-17.0 [facility] Comment on above: Performed By: #### C MP, MG1, CBCDIF ####[facility] [address] [place] [address] Lymphocytes (Bld) [#/Vol] 2.04 10*3/uL Normal 1.00-4.00 [facility] Comment on above: Performed By: #### C MP, MG1, CBCDIF ####[facility] [address] [place] [address] Lymphocytes/100 WBC (Bld) 18.9 % Normal [facility] Comment on above: Performed By: #### C MP, MG1, CBCDIF ####[facility] [address] [place] [address] MCH 27.3 pG Normal 26.0-34.0 [facility] Comment on above: Performed By: #### C MP, MG1, CBCDIF ####[facility] [address] [place] [address] MCHC (RBC) [Mass/Vol] 30.5 g/dL Normal 30.5-36.0 [facility] Comment on above: Performed By: #### C MP, MG1, CBCDIF ####[facility] [address] [place], [place] [address] MCV (RBC) [Entitic vol] 89.5 fL Normal 80.0-100.0 [facility] Comment on above: Performed By: #### C MP, MG1, CBCDIF ####[facility] [address] [place], [place] [phone] Monocytes/100 WBC (Bld) 6.7 % Normal [facility] Comment on above: Performed By: #### C MP, MG1, CBCDIF ####[facility] [address] [place], [place] [phone] Neutrophils/100 WBC (Bld) 73.0 % Normal [facility] Comment on above: Performed By: #### C MP, MG1, CBCDIF ####[facility] [address] [place] [address] NRBCs 0.0 /100 WBC Normal 0 [facility] Comment on above: Performed By: #### C MP, MG1, CBCDIF ####[facility] Yjmoeppfcn0365 [address] Platelet mean volume (Bld) [Entitic vol] 10.1 fL Normal 9.0-12.7 [facility] Comment on above: Performed By: #### C MP, MG1, CBCDIF ####[facility] [address] [place] [address] Platelets (Bld) [#/Vol] 291 10*3/uL Normal 150-400 [facility] Comment on above: Performed By: #### C MP, MG1, CBCDIF ####[facility] [address] [place] [address] RBC (Bld) [#/Vol] 4.65 10*6/uL Normal 4.20-6.00 [facility] Comment on above: Performed By: #### C MP, MG1, CBCDIF ####[facility] [address] [place] [address] WBC (Bld) [#/Vol] 10.77 10*3/uL Normal 3.70-11.00 [facility] Comment on above: Performed By: #### C MP, MG1, CBCDIF ####[facility] [address] [place] [phone] CT BRAIN WO IVCONon 05-29-19 CT BRAIN WO IVCON * * *Final Report* * * DATE OF EXAM: May 29 2021 8:42PM [facility] 0504 - CT BRAIN WO IVCON / PROCEDURE REASON: Head trauma, headache * * * * Physician Interpretation * * * * EXAMINATION: CT CERVICAL SPINE WO IVCON, CT BRAIN WO IVCON CLINICAL HISTORY: C-spine trauma, NEXUS/CCR positive (accession [id number]), Head trauma, headache (accession [id number]) TECHNIQUE: Serial axial unenhanced images were obtained from the vertex to the foramen magnum. Spiral, high resolution axial unenhanced images were obtained from the skull base to the cervicothoracic junction with sagittal and coronal planar reconstructions. Dose-Length Product (DLP): 2132 mGy*cm. CT Dose Reduction Employed: Automated exposure control (AEC) COMPARISON: 08/13/[address] 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 The intracranial fragments [...] vertebrae with counting from the craniocervical junction. General Machinist: OG Transcribe Date/Time: May 29 2021 8:59P Dictated by : CARLOS YOUNGER MD This examination was interpreted and the report reviewed and electronically signed by: CARLOS YOUNGER MD on May 29 2021 9:14PM EST [id number] [facility] CT CERVICAL SPINE WO IVCONon 05-29-2021 CT CERVICAL SPINE WO IVCON * * *Final Report* * * DATE OF EXAM: May 29 2021 8:42PM [facility] 0505 - CT CERVICAL SPINE WO IVCON / PROCEDURE REASON: C-spine trauma, NEXUS/CCR positive * * * * Physician Interpretation * * * * EXAMINATION: CT CERVICAL SPINE WO IVCON, CT BRAIN WO IVCON CLINICAL HISTORY: C-spine trauma, NEXUS/CCR positive (accession [id number]), Head trauma, headache (accession [id number]) TECHNIQUE: Serial axial unenhanced images were obtained from the vertex to the foramen magnum. Spiral, high resolution axial unenhanced images were obtained from the skull base to the cervicothoracic junction with sagittal and coronal planar reconstructions. Dose-Length Product (DLP): 2132 mGy*cm. CT Dose Reduction Employed: Automated exposure control (AEC) COMPARISON: 08/13/[address] 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 The intracranial fragments [...] vertebrae with counting from the craniocervical junction. General Machinist[facility] Transcribe Date/Time: May 29 2021 8:59P Dictated by : CARLOS YOUNGER MD This examination was interpreted and the report reviewed and electronically signed by: CARLOS YOUNGER MD on May 29 2021 9:14PM EST [id number] [facility] Cepheid Bill only (EXCFR)on 05-29-2021 Cepheid Bill only (EXCFR) Billed for services performed Normal [facility] Comment on above: Performed By: #### C AD #### [facility] [address] [place] [address] [facility] [address] [place], [place] [address] Comp Metabolic Panelon 05-29 Albumin [Mass/Vol] 4.1 g/dL Normal 3.9-4.9 [facility] Comment on above: Performed By: #### C MP ####[facility] [address] [place] [address] ALP [Catalytic activity/Vol] 86 U/L Normal 38-113 [facility] Comment on above: Performed By: #### C MP ####[facility] [address] [place] [address] ALT [Catalytic activity/Vol] 15 U/L Normal 10-54 [facility] Comment on above: Performed By: #### C MP ####[facility] [address] [place] [address] Anion gap [Moles/Vol] 9 mmol/L Normal 9-18 [facility] Comment on above: Performed By: #### C MP ####[facility] [address] [place] [address] AST [Catalytic activity/Vol] 22 U/L Normal 14-40 [facility] Comment on above: Performed By: #### C MP ####[facility] [address]fr[address] [place] [address] Bilirubin [Mass/Vol] 0.2 mg/dL Normal 0.2-1.3 [facility] Comment on above: Performed By: #### C MP ####[facility] [address] [place] [address] Calcium [Mass/Vol] 9.1 mg/dL Normal 8.5-10.2 [facility] Comment on above: Performed By: #### C MP ####[facility] [address] [place] [address] Chloride [Moles/Vol] 103 mmol/L Normal 97-105 [facility] Comment on above: Performed By: #### C MP ####[facility] [address] [place] [address] CO2 [Moles/Vol] 29 mmol/L Normal 22-30 [facility] Comment on above: Performed By: #### C MP ####[facility] [address]kv[address] [place] [address] Creatinine [Mass/Vol] 0.89 mg/dL Normal 0.73-1.22 [facility] Comment on above: Performed By: #### C MP ####[facility] Xvmfr[address]gf8[address] [place] [address] eGFR- Amer. >60 Normal [facility] Comment on above: Performed By: #### C MP ####[facility] [address] [place] [address] eGFR-All Other Races >60 Normal [facility] Comment on above: Result Comment: eGFR [...] at [email or web address]. Performed By: #### C MP ####[facility] Kuyegohlrd5790 [address] Glucose [Mass/Vol] 120 mg/dL High 74-99 [facility] Comment on above: Result Comment: The [place] Diabetes Association (ADA) provides guidance for cutoff [...] Standards of Medical Care in Diabetes 2016, [place] [employer]. Diabetes Care. 2016.39(Suppl 1). Performed By: #### C MP ####[facility] [address] [place] [address] Potassium [Moles/Vol] 4.2 mmol/L Normal 3.7-5.1 [facility] Comment on above: Performed By: #### C MP ####[facility] [address] [place] [address] Protein [Mass/Vol] 7.1 g/dL Normal 6.3-8.0 [facility] Comment on above: Performed By: #### C MP ####[place] [address] Sodium [Moles/Vol] 141 mmol/L Normal 136-144 [facility] Comment on above: Performed By: #### C MP ####[facility] [address] [place] [address] Urea nitrogen [Mass/Vol] 11 mg/dL Normal 9-24 [facility] Comment on above: Performed By: #### C MP ####[place] [address] Albumin [Mass/Vol] 4.1 g/dL Normal 3.9-4.9 [facility] Comment on above: Performed By: #### C MP, MG1, CBCDIF ####[place] [address] ALP [Catalytic activity/Vol] 86 U/L Normal 38-113 [facility] Comment on above: Performed By: #### C MP, MG1, CBCDIF ####[place] [address] ALT Unable to assay due to interference from hemolysis. Suggest reorder as clinically indicated. Normal 10-54 [facility] Comment on above: Result Comment: Call ed to LISA Rea at 2129 on 05.29.21 by Sabino Performed By: #### C MP, MG1, CBCDIF ####[facility] [address] [place] [address] Anion gap [Moles/Vol] 12 mmol/L Normal 9-18 [facility] Comment on above: Performed By: #### C MP, MG1, CBCDIF ####[facility] [address] [place] [address] AST Unable to assay due to interference from hemolysis. Suggest reorder as clinically indicated. Normal 14-40 [facility] Comment on above: Result Comment: Call ed to ED Álvaro at 2129 on 05.29.21 by Sabino Performed By: #### C MP, MG1, CBCDIF ####[facility] [address] [place] [address] Bilirubin [Mass/Vol] 0.2 mg/dL Normal 0.2-1.3 [facility] Comment on above: Performed By: #### C MP, MG1, CBCDIF ####[facility] [address] [place] [address] Calcium [Mass/Vol] 9.0 mg/dL Normal 8.5-10.2 [facility] Comment on above: Performed By: #### C MP, MG1, CBCDIF ####[facility] [address] [place] [address] Chloride [Moles/Vol] 102 mmol/L Normal 97-105 [facility] Comment on above: Performed By: #### C MP, MG1, CBCDIF ####[facility] [address] [place] [address] CO2 [Moles/Vol] 27 mmol/L Normal 22-30 [facility] Comment on above: Performed By: #### C MP, MG1, CBCDIF ####[facility] [address] [place] [address] Creatinine [Mass/Vol] 0.75 mg/dL Normal 0.73-1.22 [facility] Comment on above: Performed By: #### C MP, MG1, CBCDIF ####[facility] [address] [place] [address] eGFR- Amer. >60 Normal [facility] Comment on above: Performed By: #### C MP, MG1, CBCDIF ####[facility] [address] [place] [phone] eGFR-All Other Races >60 Normal [facility] Comment on above: Result Comment: eGFR [...] By: #### C MARÍA ELENA, MG1, CBCDIF ####[facility] [address] [place] [phone] Glucose [Mass/Vol] 112 mg/dL High 74-99 [facility] Comment on above: Result Comment: The [place] Diabetes Association (ADA) provides guidance for cutoff [...] Standards of Medical Care in Diabetes 2016, [place] [employer]. Diabetes Care. 2016.39(Suppl 1). Performed By: #### C MP, MG1, CBCDIF ####[facility] [address] [place] [phone] Potassium Unable to assay due to interference from hemolysis. Suggest reorder as clinically indicated. Normal 3.7-5.1 [facility] Comment on above: Result Comment: Call ed to ED Álvaro at 2129 on 05.29.21 by Sabino Performed By: #### C MP, MG1, CBCDIF ####[facility] [address] [place] [phone] Protein [Mass/Vol] 7.3 g/dL Normal 6.3-8.0 [facility] Comment on above: Performed By: #### C MP, MG1, CBCDIF ####[facility] Xuf[address]outevj3338 [address]721[address] Sodium [Moles/Vol] 141 mmol/L Normal 136-144 [facility] Comment on above: Performed By: #### C MP, MG1, CBCDIF ####[facility] [address] [place] [phone] Urea nitrogen [Mass/Vol] 11 mg/dL Normal 9-24 [facility] Comment on above: Performed By: #### C MP, MG1, CBCDIF ####[facility] [address] [place] [phone] ED PROV NOTEon 05-29-2021 ED PROV NOTE HNO ID: [id number] Author: Shanell Slaughter MD Service: ? Author [...] No radiographic evidence of acute cardiopulmonary disease. General Machinist: [facility] Transcribe Date/Time: May 29 [...] vertebrae with counting from the craniocervical junction. General Machinist: [facility] Transcribe Date/Time: May 29 [...] vertebrae with counting from the craniocervical junction. General Machinist: [facility] Transcribe Date/Time: May 29 (more content not included)... Normal [facility] ED PROV NOTE HNO ID: [id number] Author: Flavio Pandya DO Service: Emergency Medicine Author Type: Physician Type: ED Provider Notes Filed: 05/29/2021 7:10 PM Note Text: ED Provider Note Patient Name: Andrew Sifuentes SERVICE DATE: 05/29/21 History Patient presents with: Fall 71 yo male non-smoker, hx of HTN, 2 [employer]AND[employer] shunts, PE (not on anticoagulation now), [...] with assistance from bedside clinician. Provider Location: [facility] Patient [facility] Physical [...] Flavio Pandya, DO Flavio Pandya, 05/29/211909 Normal [facility] EXCOVD, Flu A/B, RSV (On int erfaces 1102,1120)on 05-29-2021 Influenza A PCR Negative Normal [facility] Comment on above: Performed By: #### C AD #### [facility] [address] [place], [place] [id number] [place] [address] Influenza B PCR Negative Normal [facility] Comment on above: Performed By: #### C AD #### [facility] [address] [place], [place] [id number] [place] [address] RSV PCR Negative Normal [facility] Comment on above: Result Comment: This test has been authorized by [facility] under an Emergency Use Authorization (EUA). Performed By: #### C AD #### [facility] [address] [place] [address] SARS-CoV-2 (COVID-19) RNA MEGAN+probe Ql (Unsp spec) UPPER RESPIRATORY TRACT SWAB Normal [facility] Comment on above: Performed By: #### C AD #### [facility] [address] [place], [place] [id number] [place] [address] SARS-CoV-2 (COVID-19) RNA MEGAN+probe Ql (Unsp spec) Negative for COVID19 (SARS CoV2) by RT-PCR or equivalent method. Normal Negative for COVID19 (SARS CoV2) by RT-PCR or equivalent method. [facility] Comment on above: Result Comment: This test has been authorized by [facility] under an Emergency Use Authorization (EUA). Performed By: #### C AD #### [facility] [address] [place], [place] [phone] [place] [phone] Magnesiumon 05-29-2021 Magnesium [Mass/Vol] 2.2 mg/dL Normal 1.7-2.3 [facility] Comment on above: Performed By: #### C MP, MG1, CBCDIF ####[phone] NT Pro BNPon 05-29-2021 PRO B Natr Peptide 303 pg/mL High <125 [facility] Comment on above: Performed By: #### N TBNP ####[facility] Uknidhmmvr6549 [phone] Troponin Ton 05-29-2021 Troponin T <0.010 Normal 0.000-0.029 [facility] Comment on above: Performed By: #### T NT ####[facility] [address] [place] [phone] Troponin T Unable to assay due to interference from hemolysis. Suggest reorder as clinically indicated. Normal 0.000-0.029 [facility] Comment on above: Result Comment: Call ed to ED Álvaro at 2129 on 05.29.21 by Sabino Performed By: #### T NT ####[facility] Zthyoeifmb7705 [phone] XR CHEST 1V FRONTAL PORTon 0 [...] No radiographic evidence of acute cardiopulmonary disease. General Machinist: OG Transcribe Date/Time: May 29 2021 8:53P Dictated by : ROLY BANGURA MD This examination was interpreted and the report reviewed and electronically signed by: ROLY BANGURA MD on May 29 2021 8:54PM EST [id number] Normal [facility] COMPREHENSIVE PANELon 2020 Albumin [Mass/Vol] 3.9 g/dL Normal 3.4 - 5.0 [facility] Comment on above: Order Comment: PATIE NT FASTING Performed By: #### C MP #### [facility] [address] [place] [address] ALP [Catalytic activity/Vol] 71 U/L Normal 33 - 136 [facility] Comment on above: Order Comment: PATIE NT FASTING Performed By: #### C MP #### [facility] [address] [place] [address] ALT [Catalytic activity/Vol] 19 U/L Normal 10 - 52 [facility] Comment on above: Order Comment: PATIE NT FASTING Result Comment: Nasima ents treated with Sulfasalazine may generate falsely decreased results for ALT. Performed By: #### C MP #### [facility] [address] [place] [address] Anion gap [Moles/Vol] 13 mmol/L Normal 10 - 20 [facility] Comment on above: Order Comment: PATIE NT FASTING Performed By: #### C MP #### [facility] [address] [place] [address] AST [Catalytic activity/Vol] 20 U/L Normal 9 - 39 [facility] Comment on above: Order Comment: PATIE NT FASTING Performed By: #### C MP #### [facility] [address] [place] [address] Bilirubin [Mass/Vol] 0.6 mg/dL Normal 0.0 - 1.2 [facility] Comment on above: Order Comment: PATIE NT FASTING Performed By: #### C MP #### [facility] [address] [place] [address] Calcium [Mass/Vol] 9.0 mg/dL Normal 8.6 - 10.6 [facility] Comment on above: Order Comment: PATIE NT FASTING Performed By: #### C MP #### [facility] [address] [place] [address] Chloride [Moles/Vol] 103 mmol/L Normal 98 - 107 [facility] Comment on above: Order Comment: PATIE NT FASTING Performed By: #### C MP #### [facility] [address] [place] [address] Creatinine [Mass/Vol] 0.94 mg/dL Normal 0.50 - 1.30 [facility] Comment on above: Order Comment: PATIE NT FASTING Performed By: #### C MP #### [facility] [address] [place] [address] GFR- AM. >60 Normal >60 [facility] Comment on above: Order Comment: PATIE NT FASTING Result Comment: CALC ULATIONS OF ESTIMATED GFR ARE PERFORMED USING THE MDRD STUDY EQUATION FOR THE IDMS-TRACEABLE CREATININE METHODS. CLIN CHEM 2007;53:766-72 Performed By: #### C MP #### [facility] [address] [place] [address] GFR-NON AM. >60 Normal >60 [facility] Comment on above: Order Comment: PATIE NT FASTING Performed By: #### C MP #### [facility] [address] [place] [address] Glucose [Mass/Vol] 85 mg/dL Normal 74 - 99 [facility] Comment on above: Order Comment: PATIE NT FASTING Performed By: #### C MP #### [facility] [address] [place] [address] HCO3 (Bld) [Moles/Vol] 30 mmol/L Normal 21 - 32 [facility] Comment on above: Order Comment: PATIE NT FASTING Performed By: #### C MP #### [facility] [address] [place] [address] Potassium [Moles/Vol] 4.1 mmol/L Normal 3.5 - 5.3 [facility] Comment on above: Order Comment: PATIE NT FASTING Performed By: #### C MP #### [facility] [address] [place] [address] Protein [Mass/Vol] 6.6 g/dL Normal 6.4 - 8.2 [facility] Comment on above: Order Comment: PATIE NT FASTING Performed By: #### C MP #### [facility] [address] [place] [address] Sodium [Moles/Vol] 142 mmol/L Normal 136 - 145 [facility] Comment on above: Order Comment: PATIE NT FASTING Performed By: #### C MP #### [facility] [address] [place] [address] Urea nitrogen [Mass/Vol] 14 mg/dL Normal 6 - 23 [facility] Comment on above: Order Comment: PATIE NT FASTING Performed By: #### C MP #### [facility] [address] [place] [address] LIPID PANEL (CORONARY RISK 2 )on 09-03-2020 Cholesterol [Mass/Vol] 210 mg/dL High 0 - 199 [facility] Comment on above: Order Comment: [...] Performed By: #### L IPID #### [facility] [address] [place] [address] Cholesterol in HDL [Mass/Vol] 50.1 mg/dL Normal [facility] Comment on above: Order Comment: PATIE NT FASTING Result Comment: . AGE VERY LOW LOW NORMAL HIGH 0-19 Y < 35 < 40 40-45 ---- 20-24 Y ---- < 40 >45 ---- >24 Y ---- < 40 40-60 >60 . Performed By: #### L IPID #### [facility] [address] [place] [address] Cholesterol in LDL [Mass/Vol] 130 mg/dL High 0 - 99 [facility] Comment on above: Order Comment: PATIE NT FASTING Result Comment: . NEAR BORD AGE DESIRABLE OPTIMAL HIGH HIGH VERY HIGH 0-19 Y 0 - 109 --- 110-129 >/= 130 ---- 20-24 Y 0 - 119 --- 120-159 >/= 160 ---- >24 Y 0 - 99 100-129 130-159 160-189 >/=190 . Performed By: #### L IPID #### [facility] [address] [place] [address] Cholesterol in VLDL [Mass/Vol] 30 mg/dL Normal 0 - 40 [facility] Comment on above: Order Comment: PATIE NT FASTING Performed By: #### L IPID #### [facility] [address] [place] [address] Cholesterol.total/Chol esterol in HDL [Mass ratio] 4.2 {ratio} Normal [facility] Comment on above: Order Comment: PATIE NT FASTING Result Comment: REF VALUES DESIRABLE < 3.4 HIGH RISK > 5.0 Performed By: #### L IPID #### [facility] [address] [place] [address] Triglyceride [Mass/Vol] 152 mg/dL High 0 - 149 [facility] Comment on above: Order Comment: [...] Performed By: #### L IPID #### [facility] [address] [place] [address] PROSTATE SPEC.AG,SCREENon PROSTATE SPEC.AG,SCREEN 0.37 ng/mL Normal 0.00 - 4.00 [facility] Comment on above: Order Comment: PATIE NT FASTING Result Comment: The FDA requires that the method used for PSA assay be reported to the physician. Values obtained with different assay methods must not be used interchangeably. This test was performed at [facility] using the [employer] PSA method, which is a sandwich immunoassay using chemiluminescence for quantitation. The assay is approved for measurement of prostate-specific antigen (PSA) in serum and may be used in conjunction with a digital rectal examination in men 50 years and older as an aid in detection of prostate cancer. 0-Wisft-xtxmervhy inhibitors (e.g. Proscar, Finasteride, Avodart, Dutasteride and Elizabeth) for the treatment of BPH have been shown to lower PSA levels by an average of 50% after 6 months of treatment. Performed By: #### P SAS #### [facility] [address] [place] [address] TSH WITH REFLEX TO FREE T4 I F ABNORMALon 09-03-2020 TSH Qn 0.97 m[IU]/L Normal 0.44 - 3.98 [facility] Comment on above: Order Comment: PATIE NT FASTING Result Comment: TSH testing is performed using different testing methodology at [facility] than at other legacy [facility]. Direct result comparisons should only be made within the same method. Performed By: #### T HYDS #### [facility] [address] [place] [address] CBC AND DIFFERENTIALon 09-02 % AUTOMATED IMMATURE GRAN 0.3 % Normal 0.0 - 0.9 [facility] Comment on above: Order Comment: PATIE NT FASTING Result Comment: [place] Granulocyte Count (IG) includes promyelocytes, myelocytes and metamyelocytes but does not include bands. Percent differential counts (%) should be interpreted in the context of the absolute cell counts (cells/L). Performed By: #### C BCDF #### [facility] [address] [place] [address] Basophils (Bld) [#/Vol] 0.07 10*3/uL Normal 0.00 - 0.10 [facility] Comment on above: Order Comment: PATIE NT FASTING Result Comment: Auto mated WBC differential has been confirmed by manual smear. Performed By: #### C BCDF #### [facility] [address] [place] [address] Basophils/100 WBC (Bld) 0.9 % Normal 0.0 - 2.0 [facility] Comment on above: Order Comment: PATIE NT FASTING Performed By: #### C BCDF #### [facility] [address] [place] [address] Eosinophils (Bld) [#/Vol] 0.21 10*3/uL Normal 0.00 - 0.70 [facility] Comment on above: Order Comment: PATIE NT FASTING Performed By: #### C BCDF #### [facility] [address] [place] [address] Eosinophils/100 WBC (Bld) 2.8 % Normal 0.0 - 6.0 [facility] Comment on above: Order Comment: PATIE NT FASTING Performed By: #### C BCDF #### [facility] [address] [place] [address] Lymphocytes (Bld) [#/Vol] 2.28 10*3/uL Normal 1.20 - 4.80 [facility] Comment on above: Order Comment: PATIE NT FASTING Performed By: #### C BCDF #### [place] [address] [place] [address] Lymphocytes/100 WBC (Bld) 30.9 % Normal 13.0 - 44.0 [facility] Comment on above: Order Comment: PATIE NT FASTING Performed By: #### C BCDF #### [facility] [address] [place] [address] Monocytes (Bld) [#/Vol] 0.50 10*3/uL Normal 0.10 - 1.00 [facility] Comment on above: Order Comment: PATIE NT FASTING Performed By: #### C BCDF #### [facility] [address] [place] [address] Monocytes/100 WBC (Bld) 6.8 % Normal 2.0 - 10.0 [facility] Comment on above: Order Comment: PATIE NT FASTING Performed By: #### C BCDF #### [facility] [address] [place] [address] Neutrophils (Bld) [#/Vol] 4.29 10*3/uL Normal 1.20 - 7.70 [facility] Comment on above: Order Comment: PATIE NT FASTING Performed By: #### C BCDF #### [facility] [address] [place] [address] Neutrophils/100 WBC (Bld) 58.3 % Normal 40.0 - 80.0 [facility] Comment on above: Order Comment: PATIE NT FASTING Performed By: #### C BCDF #### [facility] [address] [place] [address] Erythrocyte distribution width (RBC) [Ratio] 14.6 % High 11.5 - 14.5 [facility] Comment on above: Order Comment: PATIE NT FASTING Performed By: #### C BCDF #### [facility] [address] [place] [address] Hematocrit (Bld) [Volume fraction] 43.1 % Normal 41.0 - 52.0 [facility] Comment on above: Order Comment: PATIE NT FASTING Performed By: #### C BCDF #### [facility] [address] [place] [address] Hemoglobin (Bld) [Mass/Vol] 13.3 g/dL Low 13.5 - 17.5 [facility] Comment on above: Order Comment: PATIE NT FASTING Performed By: #### C BCDF #### [facility] [address] [place] [address] MCHC (RBC) [Mass/Vol] 30.9 g/dL Low 32.0 - 36.0 [facility] Comment on above: Order Comment: PATIE NT FASTING Performed By: #### C BCDF #### [facility] [address] [place] [address] MCV (RBC) [Entitic vol] 92 fL Normal 80 - 100 [facility] Comment on above: Order Comment: PATIE NT FASTING Performed By: #### C BCDF #### [facility] [address] [place] [address] NUCLEATED RBC 0.0 /100 WBC Normal 0.0-0.0 [facility] Comment on above: Order Comment: PATIE NT FASTING Performed By: #### C BCDF #### [facility] [address] [place] [address] Platelets (Bld) [#/Vol] 267 10*3/uL Normal 150 - 450 [facility] Comment on above: Order Comment: PATIE NT FASTING Performed By: #### C BCDF #### [facility] [address] [place] [address] RBC 4.69 x10E12/L Normal 4.50 - 5.90 [facility] Comment on above: Order Comment: PATIE NT FASTING Performed By: #### C BCDF #### [facility] [address] [place] [address] WBC (Bld) [#/Vol] 7.4 10*3/uL Normal 4.4 - 11.3 [facility] Comment on above: Order Comment: PATIE NT FASTING Performed By: #### C BCDF #### [facility] [address] [place] [address] RED CELL MORPHOLOGYon 2020 CHANELL CELLS Few Normal [facility] Comment on above: Order Comment: PATIE NT FASTING Performed By: #### M ORP2 #### [facility] [address] [place] [address] OVALOCYTES Few Normal [facility] Comment on above: Order Comment: PATIE NT FASTING Performed By: #### M ORP2 #### [facility] [address] [place] [address] POLYCHROMASIA Mild Normal [facility] Comment on above: Order Comment: PATIE NT FASTING Performed By: #### M ORP2 #### [facility] [address] [place] [address] RBC FRAGMENTS Few Normal [facility] Comment on above: Order Comment: PATIE NT FASTING Performed By: #### M ORP2 #### [facility] [address] [place] [address] RBC morphology finding Nom (Bld) See Below Normal [facility] Comment on above: Order Comment: PATIE NT FASTING Performed By: #### M ORP2 #### [facility] [address] [place] [address] No Panel Informationon 01-19 76 1 [facility]iol[facility] [...] [place] Work Phone: [email or web address] ?RetrieveTestByDateTime?P dyalodWN=[email or web address]&Date=1 09-13-2019&Time=15%3a11%3a 03%3a00&TestType=ECG&Site =1&OutputType=PDF&Ext=PDF [facility] [place] Work Phone: Otheron 11-13-2019 [facility] Complete Blood Count + Diffe rentialon 11-06-2019 Basophils (Bld) [#/Vol] 0.06 {x10E9/L} See Below [facility] Work Phone: Comment on above: Reference Range: 0.0 0 - 0.10 Basophils/100 WBC (Bld) 0.8 % 0.0 - 2.0 [facility] Work Phone: [phone] Eosinophils (Bld) [#/Vol] 0.18 {x10E9/L} See Below [facility] Work Phone: Comment on above: Reference Range: 0.0 0 - 0.70 Eosinophils/100 WBC (Bld) 2.5 % 0.0 - 6.0 [facility] Work Phone: Erythrocyte distribution width (RBC) [Ratio] 13.7 % See Below [facility] Work Phone: Comment on above: Reference Range: 11. 5 - 14.5 Hematocrit (Bld) [Volume fraction] 45.5 % See Below [facility] Work Phone: Comment on above: Reference Range: 41. 0 - 52.0 Hemoglobin (Bld) [Mass/Vol] 14.0 g/dL See Below [facility] Work Phone: Comment on above: Reference Range: 13. 5 - 17.5 Lymphocytes (Bld) [#/Vol] 2.15 {x10E9/L} See Below [facility] Work Phone: Comment on above: Reference Range: 1.2 0 - 4.80 Lymphocytes/100 WBC (Bld) 29.9 % See Below [facility] Work Phone: Comment on above: Reference Range: 13. 0 - 44.0 MCHC (RBC) [Mass/Vol] 30.8 g/dL below low threshold See Below [facility] Work Phone: Comment on above: Reference Range: 32. 0 - 36.0 MCV (RBC) [Entitic vol] 94 fL 80 - 100 [facility] Work Phone: Monocytes (Bld) [#/Vol] 0.49 {x10E9/L} See Below [facility] Work Phone: Comment on above: Reference Range: 0.1 0 - 1.00 Monocytes/100 WBC (Bld) 6.8 % 2.0 - 10.0 [facility] Work Phone: Neutrophils (Bld) [#/Vol] 4.30 {x10E9/L} See Below [facility] Work Phone: Comment on above: Reference Range: 1.2 0 - 7.70 Neutrophils/100 WBC (Bld) 59.9 % See Below [place] [facility] Work Phone: Comment on above: Reference Range: 40. 0 - 80.0 Platelets (Bld) [#/Vol] 270 {x10E9/L} 150 - 450 [facility] Work Phone: RBC (Bld) [#/Vol] 4.85 {x10E12/L} See Below [facility] Work Phone: Comment on above: Reference Range: 4.5 0 - 5.90 WBC (Bld) [#/Vol] 0.0 {/100_WBC} 0.0-0.0 [facility] Work Phone: WBC (Bld) [#/Vol] 7.2 {x10E9/L} 4.4 - 11.3 [facility] Physician [facility] Work Phone: Complete Blood Count + Differential 0.1 % 0.0 - 0.9 [place] [facility] Work Phone: Comment on above: Immature Granulocyte Count (IG) includes promyelocytes, myelocytes and metamyelocytes but does not include bands. Percent differential counts (%) should be interpreted in the context of the absolute cell counts (cells/L). Lipid Panelon 11-06-2019 Cholesterol [Mass/Vol] 181 mg/dL 0 - 199 [facility] Work Phone: Comment on above: . AGE [...] dosing. Cholesterol in HDL [Mass/Vol] 52.1 mg/dL [place] [facility] Work Phone: Comment on above: . AGE VERY LOW LOW N ORMAL HIGH 0-19 Y < 35 < 40 40-45 ---- 20-24 Y ---- < 40 >45 ---- >24 Y ---- < 40 40-60 >60. Cholesterol in LDL [Mass/Vol] 97 mg/dL 0 - 99 [facility] Work Phone: Comment on above: . NEAR BORD AGE IZABELLA RABLE OPTIMAL HIGH HIGH VERY HIGH 0-19 Y 0 - 109 --- 110-129 >/= 130 ---- 20-24 Y 0 - 119 --- 120-159 >/= 160 ---- >24 Y 0 - 99 100-129 130-159 160-189 >/=190. Cholesterol.total/Chol esterol in HDL [Mass ratio] 3.5 {ratio} [facility] Work Phone: Comment on above: REF VALUESDESIRABLE < 3.4HIGH RISK > 5.0 Triglyceride [Mass/Vol] 158 mg/dL above high threshold 0 - 149 [facility] Work Phone: Comment on above: . AGE [...] Lipid Panel 32 mg/dL 0 - 40 [facility] Work Phone: Metabolic Panelon 11-06-2019 ALP [Catalytic activity/Vol] 70 U/L 33 - 136 [place] [facility] Work Phone: Anion gap [Moles/Vol] 13 mmol/L 10 - 20 [facility] Work Phone: Bilirubin [Mass/Vol] 0.6 mg/dL 0.0 - 1.2 [facility] Physician [facility] Work Phone: Calcium [Mass/Vol] 9.4 mg/dL 8.6 - 10.6 [facility] Work Phone: Chloride [Moles/Vol] 99 mmol/L 98 - 107 [facility] Work Phone: CO2 [Moles/Vol] 30 mmol/L 21 - 32 [place] [facility] Work Phone: Creatinine [Mass/Vol] 0.87 mg/dL See Below [facility] Physician [facility] Work Phone: Comment on above: Reference Range: 0.5 0 - 1.30 Glucose [Mass/Vol] 89 mg/dL 74 - 99 [facility] Physician [facility] Work Phone: Potassium [Moles/Vol] 4.3 mmol/L 3.5 - 5.3 [facility] Work Phone: Protein [Mass/Vol] 7.3 g/dL 6.4 - 8.2 [facility] Work Phone: Sodium [Moles/Vol] 138 mmol/L 136 - 145 [facility] Work Phone: Urea nitrogen [Mass/Vol] 14 mg/dL 6 - 23 [facility] Work Phone: Otheron 11-06-2019 Albumin BCP dye [Mass/Vol] 4.4 g/dL 3.4 - 5.0 [facility] Work Phone: ALT With P-5'-P [Catalytic activity/Vol] 11 U/L 10 - 52 [facility] Work Phone: Comment on above: Patients treated wit h Sulfasalazine may generate falsely decreased results for ALT. AST With P-5'-P [Catalytic activity/Vol] 17 U/L 9 - 39 [facility] Work Phone: >60 >60 [facility] Work Phone: Comment on above: CALCULATIONS OF LUZMARIA MATED GFR ARE PERFORMED USING THE MDRD STUDY EQUATION FOR THE IDMS-TRACEABLE CREATININE METHODS. CLIN CHEM 2007;[id number] Culture, urine Bacteria identified Cx Nom (U) Mixed Gram Pos & Gram Neg Org [facility] Work Phone: Bacteria identified Cx Nom (U) Klebsiella pneumoniae sp pneum [facility] Work Phone: Vital Signs Date Time Vital Sign Value Performing Clinician Facility 09-13-2023 11:48-0400 Body height 175.3 cm Rebecca Buck MD Work Phone: [facility] 09-13-2023 11:48-0400 Body mass index (BMI) [Ratio] 25.84 kg/m2 Rebecca Buck MD Work Phone: [facility] 09-13-2023 11:48-0400 Body weight 79.38 kg Rebecca Buck MD Work Phone: [facility] 08-13-2023 09:56-0400 Body height 175.3 cm Rebecca Buck MD Work Phone: [facility] 08-13-2023 09:56-0400 Body mass index (BMI) [Ratio] 25.84 kg/m2 Rebecca Buck MD Work Phone: [facility] 08-13-2023 09:56-0400 Body weight 79.38 kg Rebecca Buck MD Work Phone: [facility] 03-02-2022 18:49-0400 Body temperature 98.01 [degF] Lanette Munguia DO Work Phone: [employer] 03-02-2022 18:49-0400 Diastolic blood pressure 72 mm[Hg] Lanette Munguia DO [facility] Phone: [facility] 03-02-2022 18:49-0400 Heart rate 94 /min Lanette Munguia DO Work Phone: [facility] 03-02-2022 18:49-0400 Respiratory rate 18 /min Lanette Munguia DO Work Phone: [facility] 03-02-2022 18:49-0400 SaO2% (BldA) [Mass fraction] 98 % Lanette Munguia DO Work Phone: [facility] 03-02-2022 18:49-0400 Systolic blood pressure 104 mm[Hg] Lanette Munguia DO Work Phone: [facility] 03-02-2022 11:55-0400 Body height 175.3 cm Lanette Munguia DO Work Phone: [facility] 03-02-2022 11:55-0400 Body mass index (BMI) [Ratio] 25.84 kg/m2 Lanette Munguia DO Work Phone: [facility] 03-02-2022 11:55-0400 Body weight 79.38 kg Lanette Munguia DO Work Phone: [facility] 12-22-2021 02:08-0400 Diastolic blood pressure 67 mm[Hg] Sharon Olivia MD Work Phone: [facility] 12-22-2021 02:08-0400 Heart rate 77 /min Sharon Olivia MD Work Phone: [facility] 12-22-2021 02:08-0400 Respiratory rate 16 /min Sharon Olivia MD Work Phone: [facility] 12-22-2021 02:08-0400 SaO2% (BldA) [Mass fraction] 96 % Sharon Olivia MD Work Phone: [facility] 12-22-2021 02:08-0400 Systolic blood pressure 108 mm[Hg] Sharon Olivia MD Work Phone: [facility] 12-21-2021 23:52-0400 Body height 175.3 cm Sharon Olivia MD Work Phone: [facility] 12-21-2021 23:52-0400 Body mass index (BMI) [Ratio] 25.84 kg/m2 Sharon Olivia MD Work Phone: [facility] 12-21-2021 23:52-0400 Body temperature 97.9 [degF] Sharon Olivia MD Work Phone: [facility] 12-21-2021 23:52-0400 Body weight 79.38 kg Sharon Olivia MD Work Phone: [facility] 11-01-2021 08:41-0400 Diastolic blood pressure 77 mm[Hg] Dante Kim MD Work Phone: [facility] 11-01-2021 08:41-0400 Heart rate 75 /min Dante Kim MD Work Phone: [facility] 11-01-2021 08:41-0400 Respiratory rate 16 /min Dante Kim MD Work Phone: [facility] 11-01-2021 08:41-0400 SaO2% (BldA) [Mass fraction] 97 % Dante Kim MD Work Phone: [facility] 11-01-2021 08:41-0400 Systolic blood pressure 112 mm[Hg] Dante Kim MD Work Phone: [facility] 10-31-2021 19:13-0400 Body height 177.8 cm Dante Kim MD Work Phone: [facility] 10-31-2021 19:13-0400 Body mass index (BMI) [Ratio] 27.26 kg/m2 Dante Kim MD Work Phone: [facility] 10-31-2021 19:13-0400 Body temperature 98.49 [degF] aDnte Kim MD Work Phone: [facility] 10-31-2021 19:13-0400 Body weight 86.18 kg Dante Kim MD Work Phone: [facility] 10-29-2021 07:38-0400 Body temperature 97.81 [degF] Lisa Miguel Angel DO Work Phone: [facility] 10-29-2021 07:38-0400 Diastolic blood pressure 79 mm[Hg] Lisa Miguel Angel DO Work Phone: [facility] 10-29-2021 07:38-0400 Heart rate 80 /min Lisa Miguel Angel DO Work Phone: [facility] 10-29-2021 07:38-0400 Respiratory rate 18 /min Lisa Miguel Angel DO Work Phone: [facility] 10-29-2021 07:38-0400 SaO2% (BldA) [Mass fraction] 96 % Lisa Miguel Angel DO Work Phone: [facility] 10-29-2021 07:38-0400 Systolic blood pressure 123 mm[Hg] Lisa Miguel Angel DO Work Phone: [facility] 10-25-2021 13:55-0400 Body height 170.2 cm Lisa Miguel Angel DO Work Phone: [facility] 10-21-2021 00:57-0400 Body mass index (BMI) [Ratio] 37.58 kg/m2 Lisa Miguel Angel DO Work Phone: [facility] 10-21-2021 00:57-0400 Body weight 108.86 kg Lisa Miguel Angel DO Work Phone: [facility] 07-13-2020 13:21-0500 BMI (Body Mass Index) 40.47 kg/m2 Monika Staley [facility] Work Phone: 07-13-2020 13:21-0500 Body Temperature 98 [degF] Monika Staley [facility] Work Phone: 07-13-2020 13:21-0500 Body [...] Source: 04-13-2020 15:33-0500 0 1 Wing Ritter [facility] Work Phone: Comment on above: Pain Scale 01-20-2020 16:39-0400 Body height 175.26 cm Monika Staley MD [facility] [address] [place] Work Phone: 01-20-2020 16:39-0400 Body mass index (BMI) [Ratio] 39.28 kg/m2 Monika Staley MD JI-Dzrepnfuwv-Lji [facility] [address] [place] Work Phone: 01-20-2020 16:39-0400 Body surface area Derived from formula 2.33 m2 Monika Staley MD TC-Mcpjfzynze-Wyt [address] [place] Work Phone: 01-20-2020 16:39-0400 Body weight 120.66 kg Monika Staley MD [facility] [address] [place] Work Phone: 01-20-2020 16:39-0400 Diastolic blood pressure 84 mm[Hg] Monika Staley MD OV-Vkcyykhfvo-Uxp [facility] [place] Work Phone: Comment on above: Location: [facility]; Position: Sitting 01-20-2020 16:39-0400 Heart rate 80 /min Monika Staley MD, [facility] [address] [place] Work Phone: 01-20-2020 16:39-0400 SaO2% (BldA) [Mass fraction] 100 % Monika Staley MD WE-Rnmufwmqwr-Ukt [address] [place] Work Phone: Comment on above: Source: 01-20-2020 16:39-0400 Systolic blood pressure 144 mm[Hg] Monika Staley MD NM-Lbozwrdyfl-Qtk [facility] [address] [place] Work Phone: Comment on [...] Start: 03-16-2025 ambulatory Carlos Cavazos OLS Faci lity:[facility] Start: 03-13-2025 ambulatory Carlos Quickros OLS Faci lity:[facility] Start: [facility]-12-[facility] Start: 03-11-2025 ambulatory Carlos Quickros OLS Faci lity:[facility] Start: 03-09-2025 ambulatory Mahaveer kka flash OLS Facility:[facility] Start: 03-05-2025 ambulatory [facility] Start: 03-02-2025 ambulatory Peter Katsaros OLS Faci lity:[facility] Start: 02-26-2025 ambulatory Mahaveer kka flash OLS Facility:[facility] Start: 02-23-2025 [facility] Start: 02-19-2025 ambulatory Karon muellera OLS Facility:[facility] Start: 02-16-2025 End: 02-16-2025 ambulatory Karon Farmera OLS Facility:[facility] Start: 02-12-2025 [facility] Start: 02-12-2025 End: 02-12-2025 ambulatory Karon Farmera OLS Facility:[facility] Start: 02-09-2025 Registered Referred Carlos Cavazos - [facility] Start: 02-09-2025 ambulatory Carlos Cavazos OLS Faci lity:[facility] Start: 02-05-2025 [facility] Start: 02-05-2025 End: 02-05-2025 ambulatory Karon Farmera OLS Facility:[facility] Start: 02-02-2025 [facility] Start: 02-02-2025 End: 02-02-2025 ambulatory Karon Farmera OLS Facility:[facility] Start: 01-29-2025 [facility] Start: 01-29-2025 End: 01-29-2025 ambulatory Karon Farmera OLS Facility:[facility] Start: 01-26-2025 [facility] Start: 01-26-2025 End: 01-26-2025 ambulatory Karon Delacruzlla OLS Facility:[facility] Start: 01-22-2025 [facility] Start: 01-22-2025 End: 01-22-2025 ambulatory Carlaavenoe Delacruzlla OLS Facility:[facility] Start: 01-19-2025 Registered Referred Carlos Cavazos - [facility] Start: 01-19-2025 End: 01-19-2025 ambulatory Carlos Cavazos OLS Facility:[facility] Start: 01-15-2025 Registered Referred Karon casillas MD -[facility] Start: 01-15-2025 End: 01-15-2025 ambulatory [facility] OLS Facility:[facility] Start: 01-12-2025 Registered Referred Karon casillas MD -[facility] Start: 01-12-2025 End: 01-12-2025 ambulatory [facility] OLS Facility:[facility] Start: 01-08-2025 Registered Referred Karon casillas MD -[facility] Start: 01-08-2025 End: 01-08-2025 ambulatory [facility] OLS Facility:[facility] Start: 01-06-2025 Registered Referred Karon casillas MD -[facility] Start: 01-06-2025 End: 01-06-2025 ambulatory [facility] OLS Facility:[facility] Start: 01-01-2025 End: 01-01-[address] Monika Staley MD Work Phone: [facility] Start: 01-01-2025 End: 01-01-2025 Departed Referred Karon Corrales MD -[facility] Start: 01-01-2025 Registered Referred Karon casillas MD -[facility] Start: 01-01-2025 End: 01-01-2025 [facility] Start: 12-29-2024 Registered Referred Carlos Cavazos - [facility] Start: 12-29-2024 End: 12-29-2024 ambulatory Carlos Cavazos OLS Facility:[facility] Start: 12-26-2024 End: 12-26-[address] Monika Staley MD Work Phone: [facility] Start: 12-26-2024 End: 12-26-2024 Departed Referred Karon Corrales MD -[facility] Start: 12-26-2024 Registered Referred Karon casillas MD -[facility] Start: 12-26-2024 End: 12-26-2024 ambulatory Mahaveer Mukkamalla OLS Facility:[facility] Start: 12-25-2024 Registered Referred Karon casillas MD -[facility] Start: 12-24-2024 End: 12-25-2024 ambulatory Mahaveer Mukkamalla OLS Facility:[facility] Start: 12-24-2024 Registered Referred Carlos Lópezsaros - [facility] Start: 12-22-2024 ambulatory [facility] flash OLS Facility:[facility] Start: 12-22-2024 Registered Referred Karon casillas MD -[facility] Start: 12-18-2024 Registered Referred Karon casillas MD -[facility] Start: 12-18-2024 End: 12-18-2024 ambulatory Carlaaveer Princeamalla OLS Facility:[facility] Start: 12-15-2024 [facility] Start: 12-15-2024 Registered Referred Karon casillas MD -[facility] Start: 12-11-2024 Registered Referred Carlos Cavazos - [facility] Start: 12-11-2024 End: 12-11-2024 ambulatory Carlos Maribelkameron OLS Facility:[facility] Start: 12-08-2024 Registered Referred Karon casillas MD -[facility] Start: 12-08-2024 End: 12-08-2024 ambulatory Mahaveer Mukkamalla OLS Facility:[facility] Start: 12-04-2024 Registered Referred Karon casillas MD -[facility] Start: 12-04-2024 End: 12-04-2024 ambulatory Mahaveer kkamalla OLS Facility:[facility] Start: 12-02-2024 [facility]ulatory [facility] Start: 12-02-2024 Registered Referred Karon casillas MD -[facility] Start: 12-01-2024 ambulatory Carlos NOVAK Faci lity:[facility] Start: 12-01-2024 Registered Referred Carlos Cavazos - [facility] Start: 11-28-2024 Registered Referred Carlos Cavazos - [facility] Start: 11-28-2024 End: 11-28-2024 ambulatory Carlos Cavazos OLS Facility:[facility] Start: 11-27-2024 Registered Referred Karon casillas MD -[facility] Start: 11-27-2024 End: 11-27-2024 ambulatory Karon inga OLS Facility:[facility] Start: 11-24-2024 [facility] Start: 11-24-2024 Registered Referred Karon casillas MD -[facility] Start: 11-20-2024 Registered Referred Karon casillas MD -[facility] Start: 11-20-2024 End: 11-20-2024 ambulatory Karon NOVAK Facility:[facility] Start: 11-17-2024 ambulatory Shiela Luís Facili ty:[facility] Start: 11-17-2024 Registered Referred Karon casillas MD -[facility] Start: 11-13-2024 ambulatory Shiela Luís Facili ty:[facility] Start: 11-13-2024 Registered Referred Karon casillas MD -[facility] Start: 11-10-2024 [facility]ulatory [facility] Start: 11-10-2024 Registered Referred Karon casillas MD -[facility] Start: 11-06-2024 Registered Referred Karon casillas MD -[facility] Start: 11-06-2024 End: 11-06-2024 ambulatory Karon Corrales OLS Facility:[facility] Start: 11-03-2024 End: 11-03-[address] Monika Staley MD Work Phone: [facility] Start: 11-03-2024 End: 11-03-2024 Departed Referred Carlos Maribelkameron -[facility] Start: 11-03-2024 Registered Referred Carlos Maribelkameron - [facility] Start: 11-03-2024 End: 11-03-2024 ambulatory Carlos Cavazos OLS Facility:[facility] Start: 10-30-2024 End: 10-30-[address] Monika Staley MD Work Phone: [facility] Start: 10-30-2024 End: 10-30-2024 Departed Referred Karon Corrales MD -[facility] [facility] Start: 10-30-2024 Registered Referred Karon casillas MD -[facility] Start: 10-30-2024 End: 10-30-2024 ambulatory Monika Staley Facility:[facility] Start: 10-27-2024 Registered Referred Karon casillas MD -[facility] Start: 10-27-2024 End: 10-27-2024 ambulatory Karon NOVAK Facility:[facility] Start: 10-23-2024 Registered Referred Karon casillas MD -[facility] Start: 10-23-2024 End: 10-23-2024 ambulatory Monika Staley Facility:[facility] Start: 10-20-2024 End: 10-20-[address] Monika Staley MD Work Phone: [facility] Start: 10-20-2024 End: 10-20-2024 Departed Referred Karon Corrales MD -[facility] Start: 10-20-2024 Registered Referred Karon casillas MD -[facility] Start: 10-20-2024 End: 10-20-2024 ambulatory Karon Corrales OLS Facility:[facility] Start: 10-16-2024 ambulatory Monika Horner Luís Facili ty:[facility] Start: 10-16-2024 Registered Referred Karon casillas MD -[facility] Start: 10-13-2024 ambulatory Carlos Cavazos OLS Faci lity:[facility] Start: 10-13-2024 Registered Referred Carlos Cavazos - [facility] Start: 10-09-2024 ambulatory Shiela Luís Facili ty:[facility] Start: 10-09-2024 Registered Referred Karon casillas MD -[facility] Start: 10-06-2024 ambulatory Carlos Cavazos OLS Faci lity:[facility] Start: 10-06-2024 Registered Referred Carlos Cavazos - [facility] Start: 10-02-2024 ambulatory Shiela Luís Facili ty:[facility] Start: 10-02-2024 Registered Referred Karon casillas MD -[facility] Start: 09-30-2024 End: 09-30-[address] Monika Staley MD Work Phone: [facility] Work Phone: Start: 09-30-2024 End: 09-30-2024 Departed Referred Karon Corrales MD -[facility] Start: 09-30-2024 Registered Referred Karon casillas MD -[facility] Start: 09-30-2024 End: 09-30-2024 ambulatory Karon NOVAK Facility:[facility] Start: 09-25-2024 ambulatory Karon vidales OLS Facility:[facility] Start: 09-25-2024 [facility]istered [facility] Start: 09-22-2024 End: 09-22-[address] Monika Staley MD Work Phone: [facility] Start: 09-22-2024 End: 09-22-2024 Departed Referred Karon Corrales MD -[facility] Start: 09-22-2024 Registered Referred Karon casillas MD -[facility] Start: 09-22-2024 End: 09-22-2024 ambulatory Karon NOVAK Facility:[facility] Start: 09-18-2024 End: 09-18-[address] Monika Staley MD Work Phone: [facility] Start: 09-18-2024 End: 09-18-2024 Departed Referred Karon Corrales MD -[facility] Start: 09-18-2024 Registered Referred Karon casillas MD -[facility] Start: 09-18-2024 End: 09-18-2024 ambulatory Karon Corrales OLS Facility:[facility] Start: 09-15-2024 End: 09-15-[address] Monika Staley MD Work Phone: [facility] Work Phone: Start: 09-15-2024 End: 09-15-2024 Departed Referred Carlos Cavazos -[facility] Start: 09-15-2024 Registered Referred Carlos Cavazos - [facility] Start: 09-15-2024 End: 09-15-2024 ambulatory Carlos Cavazos OLS Facility:[facility] Start: 09-11-2024 ambulatory Karon vidales OLS Facility:[facility] Start: 09-11-2024 Registered Referred Karon casillas MD -[facility] Start: 09-08-2024 End: 09-08-[address] Monika Staley MD Work Phone: [facility] Work Phone: Start: 09-08-2024 End: 09-08-2024 Departed Referred Karon Corrales MD -[facility] Start: 09-08-2024 Registered Referred Karon casillas MD -[facility] Start: 09-08-2024 End: 09-08-2024 ambulatory Karon NOVAK Facility:[facility] Start: 09-04-2024 End: 09-04-2024 Departed Referred Carlos Maribelsaros -[facility] Start: 09-04-2024 Registered Referred Carlos Maribelsaros - [facility] Start: 09-04-2024 End: 09-04-2024 ambulatory Carlos NOVAK Facility:[facility] Start: 09-01-2024 End: 09-01-[address] Monika Staley MD Work Phone: [facility] Work Phone: Start: 09-01-2024 End: 09-01-2024 Departed Referred Carlos Lópezsaros -[facility] Start: 09-01-2024 Registered Referred Carlos Maribelsaros - [facility] Start: 09-01-2024 End: 09-01-2024 ambulatory Carlos NOVAK Facility:[facility] Start: 08-28-2024 End: 08-28-[address] Monika Staley MD Work Phone: [facility] Work Phone: Start: 08-28-2024 End: 08-28-2024 Departed Referred Carlos L[facility]pezsaros -[facility] Start: 08-28-2024 Registered Referred Carlos Lópezsaros - [facility] Start: 08-28-2024 End: 08-28-2024 ambulatory Carlos NOVAK Facility:[facility] Start: 08-25-2024 End: 08-25-[address] Monika Staley MD Work Phone: [facility] Work Phone: Start: 08-25-2024 End: 08-25-2024 Departed Referred Karon Corarles MD -[facility] Start: 08-25-2024 Registered Referred Karon casillas MD -[facility] Start: 08-25-2024 End: 08-25-2024 ambulatory Carlaamber Corrales OLS Facility:[facility] Start: 08-21-2024 End: 08-21-[address] Monika Staley MD Work Phone: [facility] Work Phone: Start: 08-21-2024 End: 08-21-2024 Departed Referred Karon Corrales MD -[facility] Start: 08-21-2024 Registered Referred Karon casillas MD -[facility] Start: 08-21-2024 End: 08-21-2024 ambulatory Carlaamber NOVAK Facility:[facility] Start: 08-18-2024 End: 08-18-[address] Monika Staley MD Work Phone: [facility] Work Phone: Start: 08-18-2024 End: 08-18-2024 Departed Referred Karon Corrales MD -[facility] [employer] Start: 08-18-2024 Registered Referred Karon casillas MD -[facility] [facility] [employer] [facility] Start: 08-18-2024 End: 08-18-2024 ambulatory Carlaamber Corrales OLS Facility:[facility] Start: 08-14-2024 End: 08-14-[address] Monika Staley MD Work Phone: [facility] Work Phone: Start: 08-14-2024 End: 08-14-2024 Departed Referred Karon Corrales MD -[facility] [employer] Start: 08-14-2024 Registered Referred Karon casillas MD -[facility] [employer] Start: 08-14-2024 End: 08-14-2024 ambulatory Karon NOVAK Facility:[facility] Start: 08-11-2024 End: 08-11-2024 Departed Referred Karon Corrales MD -[facility] Start: 08-11-2024 Registered Referred Karon casillas MD -[facility] Start: 08-11-2024 End: 08-11-2024 ambulatory Karon NOVAK Facility:[facility] Start: 08-07-2024 End: 08-07-2024 Departed Referred Carlos Lópezsaviri -[facility] Start: 08-07-2024 Registered Referred Carlos Lópezsaviri - [facility] Start: 08-07-2024 End: 08-07-2024 ambulatory Carlos Cavazos OLS Facility:[facility] Start: 08-04-2024 End: 08-04-[address] Monika Staley MD Work Phone: [facility] Work Phone: Start: 08-04-2024 End: 08-04-2024 Departed Referred Carlos Lópezsaviri -[facility] Start: 08-04-2024 Registered Referred Carlos Lópezsaros - [facility] Start: 08-04-2024 End: 08-04-2024 ambulatory Carlos NOVAK Facility:[facility] Start: 07-31-2024 End: 07-31-[address] Monika Staley MD Work Phone: [facility] Work Phone: Start: 07-31-2024 End: 07-31-2024 Departed Referred Karon Corrales MD -[facility] Start: 07-31-2024 Registered Referred Karon casillas MD -[facility] Start: 07-31-2024 End: 07-31-2024 ambulatory Karon NOVAK Facility:[facility] Start: 07-28-2024 End: 07-28-[address] Monika Staley MD Work Phone: [facility] Work Phone: Start: 07-28-2024 End: 07-28-2024 Departed Referred Karon Corrales MD -[facility] [employer] Start: 07-28-2024 Registered Referred Karon casillas MD -[facility] Start: 07-28-2024 End: 07-28-2024 ambulatory Kraon NOVAK Facility:[facility] Start: 07-25-2024 End: 07-25-[address] Monika Staley MD Work Phone: [facility] Work Phone: Start: 07-25-2024 End: 07-25-2024 Departed Referred Carlos Cavazos -[facility] [employer] Start: 07-25-2024 Registered Referred Carlos Reeder [facility] Start: 07-24-2024 End: 07-25-[address] Monika Staley MD Work Phone: [facility] Work Phone: Start: 07-24-2024 End: 07-24-2024 Departed Referred Karon Corrales MD -[facility] [employer] Start: 07-24-2024 Registered Referred Karon casillas MD -[facility] [employer] Start: 07-24-2024 End: 07-24-2024 ambulatory Karon NOVAK Facility:[facility] Start: 07-21-2024 End: 07-21-[address] Monika Staley MD Work Phone: [facility] Work Phone: Start: 07-21-2024 End: 07-21-2024 Departed Referred Karon Corrales MD -[facility] [facility] [employer] Start: 07-21-2024 Registered Referred Karon casillas MD -[facility] Start: 07-21-2024 End: 07-21-2024 ambulatory Karon NOVAK Facility:[facility] Start: 07-17-2024 End: 07-17-[address] Monika Staley MD Work Phone: [facility] Work Phone: Start: 07-17-2024 End: 07-17-2024 Departed Referred Karon Corrales MD -[facility] Start: 07-17-2024 Registered Referred Karon casillas MD -[facility] Start: 07-17-2024 End: 07-17-2024 ambulatory Karon NOVAK Facility:[facility] Start: 07-14-2024 End: 07-14-[address] Monika Staley MD Work Phone: [facility] Work Phone: Start: 07-14-2024 End: 07-14-2024 Departed Referred Carlos Cavazos -[facility] Start: 07-14-2024 Registered Referred Carlos Lópezsaros - [facility] Start: 07-14-2024 End: 07-14-2024 ambulatory Carlos Cavazos OLS Facility:[facility] Start: 07-11-2024 End: 07-11-[address] Monika Staley MD Work Phone: [facility] Work Phone: Start: 07-11-2024 End: 07-11-2024 Departed Referred aCrlos Lópezsaros -[facility] Start: 07-11-2024 Registered Referred Carlos Lópezsaros - [facility] Start: 07-11-2024 End: 07-11-2024 ambulatory Carlos Cavazos OLS Facility:[facility] Start: 07-07-2024 End: 07-07-[address] Monika Staley MD Work Phone: [facility] Work Phone: Start: 07-07-2024 End: 07-07-2024 Departed Referred Karon Corrales MD -[facility] Start: 07-07-2024 [facility] Start: 07-07-2024 End: 07-07-2024 ambulatory Karon NOVAK Facility:[facility] Start: 07-03-2024 End: 07-03-[address] Monika Staley MD Work Phone: [facility] Work Phone: Start: 07-03-2024 End: 07-03-2024 Departed Referred Kvng Crisostomo MD -[facility] Start: 07-03-2024 Registered Referred Kvng Crisostomo MD -[facility] Start: 07-03-2024 End: 07-03-2024 ambulatory Kvng NOVAK Facility:[facility] Start: 06-30-2024 End: 06-30-[address] Monika Staley MD Work Phone: [facility] Work Phone: Start: 06-30-2024 End: 06-30-2024 Departed Referred Kvng Crisostomo MD -[facility] Start: 06-30-2024 Registered Referred Kvng Crisostomo MD -[facility] Start: 06-30-2024 End: 06-30-2024 ambulatory Kvng NOVAK Facility:[facility] Start: 06-26-2024 ambulatory Kvng NOVAK Fac ility:[facility] Start: 06-26-2024 Registered Referred Kvng Crisostomo MD -[facility] Start: 06-23-2024 End: 06-23-[address] Monika Staley MD Work Phone: [facility] Work Phone: Start: 06-23-2024 End: 06-23-2024 Departed Referred Carlos [facility] [employer] Start: 06-23-2024 Registered Referred Carlos Cavazos - [facility] Start: 06-23-2024 End: 06-23-2024 ambulatory Carlos NOVAK Facility:[facility] Start: 06-19-2024 End: 06-19-[address] Monika Staley MD Work Phone: [facility] Work Phone: Start: 06-19-2024 End: 06-19-2024 Departed Referred Kvng Crisostomo MD -[facility] [facility] [employer] Start: 06-19-2024 Registered Referred Kvng Crisostomo MD -[facility] [facility] [employer] Start: 06-19-2024 End: 06-19-2024 ambulatory Monika Staley Facility:[facility] Start: 06-16-2024 End: 06-16-[address] Monika Staley MD Work Phone: [facility] Work Phone: Start: 06-16-2024 End: 06-16-2024 Departed Referred Kvng Crisostomo MD -[facility] Start: 06-16-2024 Registered Referred Kvng Crisostomo MD -[facility] Start: 06-16-2024 End: 06-16-2024 ambulatory Monika Staley Facility:[facility] Start: 06-12-2024 End: 06-12-[address] Monika Staley MD Work Phone: [facility] Work Phone: Start: 06-12-2024 End: 06-12-2024 Departed Referred Kvng Crisostomo MD -[facility] Start: 06-12-2024 Registered Referred Kvng Crisostomo MD -[facility] Start: 06-12-2024 End: 06-12-2024 ambulatory Kvng NOVAK Facility:[facility] Start: 06-09-2024 End: 06-09-[address] Monika Staley MD Work Phone: [facility] Work Phone: Start: 06-09-2024 End: 06-09-2024 Departed Referred Carlos Cavazos -[facility] Start: 06-09-2024 Registered Referred Carlos Cavazos - [facility] Start: 06-09-2024 End: 06-09-2024 ambulatory Monika Staley Facility:[facility] Start: 06-05-2024 End: 06-05-[address] Monika Staley MD Work Phone: [facility] Work Phone: Start: 06-05-2024 End: 06-05-2024 Departed Referred Kvng Crisostomo MD -[facility] Start: 06-05-2024 End: 06-05-2024 ambulatory Kvng NOVAK Facility:[facility] Start: 06-02-2024 End: 06-02-[address] Monika Staley MD Work Phone: [facility] Work Phone: Start: 06-02-2024 End: 06-02-2024 Departed Referred Kvng Crisostomo MD -[facility] [facility] [employer] Start: 06-02-2024 Registered Referred Kvng Crisostomo MD -[facility] [facility] [employer] Start: 06-02-2024 End: 06-02-2024 ambulatory Kvng NOVAK Facility:[facility] Start: 05-29-2024 End: 05-29-[address] Monika Staley MD Work Phone: [facility] Work Phone: Start: 05-29-2024 End: 05-29-2024 Departed Referred Kvng Crisostomo MD -[facility] [employer] Start: 05-29-2024 Registered Referred Kvng Crisostomo MD -[facility] [facility] [employer] Start: 05-29-2024 End: 05-29-2024 ambulatory Kvng NOVAK Facility:[facility] Start: 05-26-2024 End: 05-26-[address] Monika Staley MD Work Phone: [facility] Work Phone: Start: 05-26-2024 End: 05-26-2024 Departed Referred Carlos Cavazos -[facility] Start: 05-26-2024 Registered Referred Carlos Cavazos - [facility] Start: 05-26-2024 End: 05-26-2024 ambulatory Carlos NOVAK Facility:[facility] Start: 05-22-2024 ambulatory Kvng NOVAK Fac ility:[facility] Start: 05-22-2024 [facility] Start: 05-20-2024 End: 05-20-2024 [facility] Start: 05-19-2024 End: 05-20-2024 ambulatory Kvng NOVAK Facility:[facility] Start: 05-19-2024 [facility] Start: 05-15-2024 End: 05-15-2024 [facility] Start: 05-15-2024 End: 05-15-2024 ambulatory Kvng NOVAK Facility:[facility] Start: 05-12-2024 End: 05-12-2024 [facility] Start: 05-12-2024 End: 05-12-2024 ambulatory Carlos NOVAK Facility:[facility] Start: 05-09-2024 End: 05-09-2024 [facility] Start: 05-09-2024 End: 05-09-2024 ambulatory Kvng NOVAK Facility:[facility] Start: 05-08-2024 End: 05-08-2024 Departed Referred Babbaljeet Crisostomo MD -[facility] Start: 05-08-2024 End: 05-08-2024 ambulatory Elizabethmilton Andressa NOVAK Facility:[facility] Start: 05-05-2024 End: 05-05-2024 Departed Referred Kvng Crisostomo MD -[facility] Start: 05-05-2024 End: 05-05-2024 ambulatory Kvng NOVAK Facility:[facility] Start: 05-01-2024 End: 05-01-2024 Departed Referred Kvng Crisostomo MD -[facility] Start: 05-01-2024 End: 05-01-2024 ambulatory Kvng NOVAK Facility:[facility] Start: 04-28-2024 End: 04-28-2024 Departed Referred Carlos Cavazos -[facility] Start: 04-28-2024 End: 04-28-2024 ambulatory Carlos NOVAK Facility:[facility] Start: 04-24-2024 End: 04-24-2024 Departed Referred Kvng Crisostomo MD -[facility] Start: 04-24-2024 End: 04-24-2024 ambulatory Vicentesigifredokarolmilton Andressa NOVAK Facility:[facility] Start: 04-21-2024 End: 04-21-2024 Departed Referred Carlos Cavazos -[facility] Start: 04-21-2024 End: 04-21-2024 ambulatory Carlos NOVAK Facility:[facility] Start: 04-17-2024 ambulatory Vicenterocio Andressa NOVAK Fac ility:[facility] Start: 04-17-2024 Registered Referred Kvng Crisostomo MD -[facility] Start: 04-14-2024 ambulatory Vicenterocio Andressa NOVAK Fac ility:[facility] Start: 04-14-2024 Registered Referred Kvng Crisostomo MD -[facility] Start: 04-10-2024 End: 04-10-2024 Departed Referred Kvng Crisostomo MD -[facility] Start: 04-10-2024 End: 04-10-2024 ambulatory Kvng Jonesur OLS Facility:[facility] Start: 04-07-2024 End: 04-07-2024 Departed Referred Carlos Cavazos -[facility] Start: 04-07-2024 End: 04-07-2024 ambulatory Carlos NOVAK Facility:[facility] Start: 04-04-2024 ambulatory Avisgerson Andressa NOVAK Fac ility:[facility] Start: 04-04-2024 Registered Referred Kvng Crisostomo MD -[facility] Start: 03-31-2024 End: 03-31-2024 Departed Referred Carlos Cavazos -[facility] Start: 03-31-2024 End: 03-31-2024 ambulatory Carlos NOVAK Facility:[facility] Start: 03-27-2024 End: 03-27-2024 Departed Referred [facility] Start: 03-27-2024 End: 03-27-2024 ambulatory [facility] Facility:[facility] Start: 03-24-2024 End: 03-24-2024 Departed Referred Kvng Crisostomo MD -[facility] Start: 03-24-2024 End: 03-24-2024 ambulatory Kvng NOVAK Facility:[facility] Start: 03-20-2024 End: 03-20-2024 Departed Referred [facility] Start: 03-20-2024 End: 03-20-2024 ambulatory [facility] Facility:[facility] Start: 03-19-2024 End: 03-19-2024 Departed Referred Kvng Crisostomo MD -[facility] Start: 03-19-2024 End: 03-19-2024 ambulatory Kvng NOVAK Facility:[facility] Start: 03-18-2024 End: 03-18-2024 Departed Referred [facility] Start: 03-17-2024 End: 03-17-2024 Departed Referred [facility] Start: 03-14-2024 End: 03-14-2024 Departed Referred Carlos Cavazos [facility] Start: 03-13-2024 End: 03-13-2024 Departed Referred [facility] Start: 09-13-2023 End: 09-13-2023 ambulatory [facility] Start: 09-13-2023 End: 09-13-2023 Office outpatient visit 25 minutes Rebecca Buck MD Work Phone: [facility] Comment on above: Left flank pain (Christina magui Dx); BPH with urinary obstruction; History of kidney stones Start: 09-06-2023 End: 09-07-2023 ambulatory [facility] Start: 09-06-2023 End: 09-06-2023 Subsequent hospital visit by physician Rebecca Buck MD Work Phone: [facility] Imaging Comment on above: Left flank pain; Calculus of ureter Start: 08-31-2023 [facility] Start: 08-31-2023 [facility] encounter [facility] Start: 08-21-2023 Telephone encounter Rebecca Buck MD Work Phone: [facility] Clinical Communication Comment on above: CT appt Boaz advice Start: 08-21-2023 Registered Referred [facility] Start: 08-13-2023 End: 08-13-2023 ambulatory [facility] Start: 08-13-2023 End: 08-13-2023 Office outpatient new 45 minutes Rebecca Buck MD Work Phone: [facility] Comment on above: Left flank pain (Christina magui Dx); Calculus of ureter; Disease of prostate; BPH with urinary obstruction Start: 08-03-2023 End: 08-03-2023 ambulatory [facility] Work Phone: Start: 08-03-2023 End: 08-03-2023 Departed Referred [facility] Start: 07-20-2023 End: 07-20-2023 ambulatory [facility] Work Phone: Start: 07-20-2023 End: 07-20-2023 Departed Referred [facility] Start: 07-20-2023 Registered Referred [facility] Start: 07-18-2023 End: 07-18-2023 ambulatory [facility] Work Phone: Start: 07-18-2023 End: 07-18-2023 [facility] Start: 07-18-2023 [facility] Start: 07-16-2023 End: 07-16-2023 ambulatory [facility] Work Phone: Start: 07-16-2023 End: 07-16-2023 [facility] Start: 07-16-2023 Registered Referred [facility] Start: 07-13-2023 End: 07-13-2023 ambulatory [facility] Work Phone: Start: 07-13-2023 End: 07-13-2023 [facility] Start: 07-13-2023 Registered Referred [facility] Start: 07-12-2023 End: 07-12-2023 ambulatory [facility] Work Phone: Start: 07-12-2023 End: 07-12-2023 [facility] Start: 07-12-2023 Registered Referred [facility] Start: 07-05-2023 End: 07-05-2023 ambulatory [facility] Work Phone: Start: 07-05-2023 End: 07-05-2023 [facility] Start: 07-05-2023 [facility] Start: 07-02-2023 [facility] Start: 06-28-2023 End: 06-28-2023 ambulatory [facility] Work Phone: Start: 06-28-2023 End: 06-28-2023 [facility] Start: 06-28-2023 [facility] Start: 06-25-2023 Telephone encounter Rebecca Buck MD Work Phone: [facility] Start: 06-25-2023 End: 06-25-2023 ambulatory [facility] Work Phone: Start: 06-25-2023 End: 06-25-2023 [facility] Start: 06-25-2023 [facility] Start: 06-21-2023 End: 06-21-2023 ambulatory [facility] Work Phone: Start: 06-21-2023 End: 06-21-2023 [facility] Start: 06-21-2023 [facility] Start: 06-13-2023 End: 06-13-2023 ambulatory [facility] Work Phone: Start: 06-13-2023 End: 06-13-2023 [facility] Start: 06-06-2023 End: 06-06-2023 ambulatory [facility] Work Phone: Start: 06-06-2023 End: 06-06-2023 [facility] Start: 06-06-2023 [facility] Start: 05-23-2023 End: 05-23-2023 ambulatory [facility] Work Phone: Start: 05-23-2023 End: 05-23-2023 [facility] Start: 05-09-2023 End: 05-09-2023 [facility] Start: 05-09-2023 [facility] Start: 04-23-2023 End: 04-23-2023 [facility] Start: 04-09-2023 End: 04-09-2023 ambulatory [facility] Work Phone: Start: 04-09-2023 End: 04-09-2023 [facility] Start: 04-09-2023 [facility] Start: 04-02-2023 End: 04-02-2023 ambulatory [facility] Work Phone: Start: 04-02-2023 End: 04-02-2023 [facility] Start: 04-02-2023 [facility] Start: 03-26-2023 End: 03-26-2023 ambulatory [facility] Work Phone: Start: 03-26-2023 End: 03-26-2023 [facility] Start: 03-26-2023 [facility] Start: 03-22-2023 End: 03-22-2023 ambulatory [facility] Work Phone: Start: 03-22-2023 End: 03-22-2023 [facility] Start: 03-22-2023 [facility] Start: 03-08-2023 End: 03-08-2023 ambulatory [facility] Work Phone: Start: 03-08-2023 End: 03-08-2023 Departed Referred [facility] Start: 02-22-2023 End: 02-22-2023 ambulatory [facility] Work Phone: Start: 02-22-2023 End: 02-22-2023 Departed Referred [facility] Start: 02-22-2023 Registered Referred [facility] Start: 02-15-2023 End: 02-15-2023 ambulatory [facility] Work Phone: Start: 02-15-2023 End: 02-15-2023 Departed Referred [facility] Start: 02-15-2023 Registered Referred [facility] Start: 02-08-2023 End: 02-08-2023 ambulatory [facility] Work Phone: Start: 02-08-2023 End: 02-08-2023 Departed Referred [facility] Start: 01-31-2023 End: 01-31-2023 ambulatory [facility] Work Phone: Start: 01-31-2023 End: 01-31-2023 Departed Referred [facility] Start: 01-31-2023 Registered Referred [facility] Start: 01-29-2023 End: 01-29-2023 Departed Referred [facility] Start: 01-29-2023 Registered Referred [facility] Start: 01-26-2023 End: 01-26-2023 Departed Referred [facility] Start: 01-26-2023 Registered Referred [facility] Start: 01-24-2023 End: 01-24-2023 Departed Referred [facility] Start: 01-24-2023 Registered Referred [facility] Start: 01-22-2023 End: 01-22-2023 ambulatory [facility] Work Phone: Start: 01-22-2023 End: 01-22-2023 [facility] Start: 01-22-2023 [facility] Start: 01-10-2023 End: 01-10-2023 ambulatory [facility] Work Phone: Start: 01-10-2023 End: 01-10-2023 [facility] Start: 01-10-2023 [facility] Start: 12-27-2022 End: 12-27-2022 ambulatory [facility] Work Phone: Start: 12-27-2022 End: 12-27-2022 [facility] Start: 12-27-2022 [facility] Start: 12-21-2022 End: 12-21-2022 ambulatory [facility] Work Phone: Start: 12-21-2022 End: 12-21-2022 [facility] Start: 12-21-2022 [facility] Start: 12-14-2022 End: 12-14-2022 ambulatory [facility] Work Phone: Start: 12-14-2022 End: 12-14-2022 [facility] Start: 12-14-2022 [facility] Start: 12-07-2022 End: 12-07-2022 ambulatory [facility] Work Phone: Start: 12-07-2022 End: 12-07-2022 [facility] Start: 12-07-2022 [facility] Start: 11-24-2022 End: 11-24-2022 ambulatory [facility] Work Phone: Start: 11-24-2022 End: 11-24-2022 Departed Referred [facility] Start: 11-24-2022 [facility] Start: 11-23-2022 End: 11-23-2022 ambulatory [facility] Work Phone: Start: 11-23-2022 End: 11-23-2022 [facility] Start: 11-23-2022 [facility] Start: 11-22-2022 End: 11-22-2022 ambulatory [facility] Work Phone: Start: 11-22-2022 End: 11-22-2022 [facility] Start: 11-22-2022 [facility] Start: 11-09-2022 End: 11-09-2022 ambulatory [facility] Work Phone: Start: 11-09-2022 End: 11-09-2022 [facility] Start: 11-09-2022 [facility] Start: 10-26-2022 End: 10-26-2022 Departed Referred [facility] Start: 10-26-2022 [facility] Start: 10-12-2022 End: 10-12-2022 ambulatory [facility] Work Phone: Start: 10-12-2022 End: 10-12-2022 [facility]ed [facility] Start: 10-12-2022 [facility] Start: 10-05-2022 End: 10-05-2022 [facility] Start: 10-05-2022 Registered Ref[facility] Start: 09-28-2022 End: 09-28-2022 ambulatory [facility] Work Phone: Start: 09-28-2022 End: 09-28-2022 [facility] Start: 09-14-2022 End: 09-14-2022 [facility] Start: 08-31-2022 End: 08-31-2022 [facility] Start: 08-31-2022 [facility] Start: 08-23-2022 End: 08-23-2022 ambulatory [facility] Work Phone: Start: 08-23-2022 End: 08-23-2022 [facility] Start: 08-23-2022 [facility] Start: 08-17-2022 End: 08-17-2022 ambulatory [facility] Work Phone: Start: 08-17-2022 End: 08-17-2022 [facility] Start: 08-17-2022 Registered [facility] Start: 08-14-2022 End: 08-14-2022 ambulatory [facility] Work Phone: Start: 08-14-2022 End: 08-14-2022 [facility] Start: 08-14-2022 [facility] Start: 07-31-2022 End: 07-31-2022 ambulatory [facility] Work Phone: Start: 07-31-2022 End: 07-31-2022 Departed Ref[facility] Start: 07-31-2022 Registered [facility] Start: 07-24-2022 End: 07-24-2022 ambulatory [facility] Work Phone: Start: 07-24-2022 End: 07-24-2022 Departed Ref[facility] Start: 07-24-2022 Registered [facility] Start: 07-20-2022 End: 07-20-2022 [facility] Start: 07-20-2022 [facility] Start: 07-17-2022 End: 07-17-2022 [facility] Start: 07-17-2022 Registered [facility] Start: 07-11-2022 Registered Ref[facility] Start: 07-10-2022 End: 07-10-2022 ambulatory [facility] Work Phone: Start: 07-10-2022 End: 07-10-2022 Departed Ref[facility] Start: 07-10-2022 Registered [facility] Start: 07-03-2022 End: 07-03-2022 ambulatory [facility] Work Phone: Start: 07-03-2022 End: 07-03-2022 [facility] Start: 07-03-2022 [facility] Start: 06-27-2022 End: 06-27-2022 ambulatory [facility] Work Phone: Start: 06-27-2022 End: 06-27-2022 [facility] Start: 06-27-2022 [facility] Start: 06-13-2022 End: 06-13-2022 ambulatory [facility] Work Phone: Start: 06-13-2022 End: 06-13-2022 [facility] Start: 06-13-2022 [facility] Start: 06-06-2022 End: 06-06-2022 ambulatory [facility] Work Phone: Start: 06-06-2022 End: 06-06-2022 [facility] Start: 06-06-2022 [facility] Start: 05-30-2022 End: 05-30-2022 ambulatory [facility] Work Phone: Start: 05-30-2022 End: 05-30-2022 [facility] Start: 05-30-2022 [facility] Start: 05-16-2022 End: 05-16-2022 ambulatory [facility] Work Phone: Start: 05-16-2022 End: 05-16-2022 [facility] Start: 05-16-2022 [facility] Start: 05-02-2022 End: 05-02-2022 ambulatory [facility] Work Phone: Start: 05-02-2022 End: 05-02-2022 [facility] Start: 05-02-2022 [facility] Start: 04-27-2022 End: 04-27-2022 ambulatory [facility] Work Phone: Start: 04-27-2022 End: 04-27-2022 Departed Referred [facility] Start: 04-27-2022 Registered [facility] Start: 04-26-2022 End: 04-26-2022 ambulatory [facility] Work Phone: Start: 04-26-2022 End: 04-26-2022 Departed [facility] Start: 04-11-2022 End: 04-11-2022 ambulatory [facility] Work Phone: Start: 04-11-2022 End: 04-11-2022 Departed Ref[facility] Start: 03-28-2022 End: 03-28-2022 Departed Ref[facility] Start: 03-28-2022 Registered [facility] Start: 03-23-2022 End: 03-23-2022 Departed Referred [facility] Start: 03-23-2022 Registered [facility] Start: 03-16-2022 End: 03-16-2022 ambulatory [facility] Work Phone: Start: 03-16-2022 End: 03-16-2022 Departed Ref[facility] Start: 03-16-2022 Registered [facility] Start: 03-09-2022 End: 03-09-2022 ambulatory [facility] Work Phone: Start: 03-09-2022 End: 03-09-2022 [facility] Start: 03-09-2022 Registered [facility] Start: 03-06-2022 End: 03-06-2022 ambulatory [facility] Work Phone: Start: 03-06-2022 End: 03-06-2022 [facility] Start: 03-06-2022 [facility]istered [facility] Start: 03-02-2022 End: 03-03-2022 Emergency department patient visit UNKNOWN PROVIDER [facility] Start: 03-02-2022 End: 03-02-2022 Emergency department patient visit Lanette Munguia DO Work Phone: [facility] Comment on above: Fall, initial encoun ter (Primary Dx); Anticoagulated Start: 02-20-2022 End: 02-20-2022 Departed Referred [facility] Start: 02-20-2022 Registered Referred [facility] Start: 02-13-2022 End: 02-13-2022 ambulatory [facility] Work Phone: Start: 02-13-2022 End: 02-13-2022 Departed Referred [facility] Start: 02-13-2022 Registered [facility] Start: 02-06-2022 End: 02-06-2022 ambulatory [facility] Work Phone: Start: 02-06-2022 End: 02-06-2022 [facility] Start: 02-06-2022 Registered [facility] Start: 01-30-2022 End: 01-30-2022 [facility] Start: 01-30-2022 Registered [facility] Start: 01-26-2022 End: 01-26-2022 ambulatory [facility] Work Phone: Start: 01-26-2022 End: 01-26-2022 [facility] Start: 01-26-2022 Registered [facility] Start: 01-19-2022 End: 01-19-2022 ambulatory [facility] Work Phone: Start: 01-19-2022 End: 01-19-2022 [facility] Start: 01-19-2022 [facility] Start: 01-17-2022 ambulatory [facility] Start: 01-10-2022 [facility] Start: 01-10-2022 End: 01-10-2022 ambulatory [facility] Work Phone: Start: 01-10-2022 End: 01-10-2022 [facility] Start: 01-10-2022 [facility] Start: 01-06-2022 AUDIT Monika Elias rt Work Phone: [facility] Work Phone: Start: 01-05-2022 End: 01-05-2022 [facility] Start: 01-05-2022 [facility] Start: 12-30-2021 End: 12-30-2021 [facility] Start: 12-30-2021 [facility] Start: 12-28-2021 End: 12-28-2021 ambulatory [facility] Work Phone: Start: 12-28-2021 End: 12-28-2021 [facility] Start: 12-28-2021 [facility] Start: 12-26-2021 End: 12-26-2021 ambulatory [facility] Work Phone: Start: 12-26-2021 End: 12-26-2021 [facility] Start: 12-26-2021 Registered Referred [facility] Start: 12-22-2021 End: 12-22-2021 ambulatory [facility] Work Phone: Start: 12-22-2021 End: 12-22-2021 Departed Referred [facility] Start: 12-22-2021 Registered Referred [facility] Start: 12-22-2021 End: 12-22-2021 [facility] Start: 12-21-2021 End: 12-22-2021 Emergency department patient visit Sharon Olivia MD Work Phone: [facility] Emergency [facility] Comment on above: Heel ulceration, lef t, with unspecified severity (HCC) (Primary Dx) Start: 12-19-2021 End: 12-19-2021 ambulatory [facility] Work Phone: Start: 12-19-2021 End: 12-19-2021 Departed Referred [facility] Start: 12-19-2021 Registered Referred [facility] Start: 12-12-2021 End: 12-12-2021 ambulatory [facility] Work Phone: Start: 12-12-2021 End: 12-12-2021 Departed Referred [facility] Start: 12-12-2021 Registered Referred [facility] Start: 12-08-2021 End: 12-08-2021 ambulatory [facility] Work Phone: Start: 12-08-2021 End: 12-08-2021 Departed Referred [facility] Start: 12-08-2021 Registered Referred [facility] Start: 12-05-2021 End: 12-05-2021 ambulatory [facility] Work Phone: Start: 12-05-2021 End: 12-05-2021 [facility] Start: 12-05-2021 [facility] Start: 12-01-2021 End: 12-01-2021 [facility] Start: 12-01-2021 [facility] Start: 11-28-2021 End: 11-28-2021 [facility] Start: 11-28-2021 [facility] Start: 11-25-2021 Rx Renewal Monika Elias rt Work Phone: [id number] Work Phone: Start: 11-23-2021 End: 11-23-2021 [facility] Start: 11-23-2021 [facility] Start: 11-22-2021 End: 11-22-2021 [facility] Start: 11-22-2021 [facility] Start: 11-21-2021 End: 11-21-2021 [facility] Start: 11-15-2021 AUDIT Monika Elias rt Work Phone: [id number] Work Phone: Start: 11-14-2021 End: 11-14-2021 [facility] Start: 11-14-2021 [facility] Start: 11-08-2021 End: 11-08-2021 [facility] Start: 11-08-2021 [facility] Start: 11-04-2021 End: 11-04-2021 [facility]ed [facility] Start: 11-04-2021 Registered Ref[facility] Start: 10-31-2021 End: 11-01-2021 Emergency department patient visit UNKNOWN PROVIDER [facility] Start: 10-31-2021 End: 11-01-2021 Emergency department patient visit Dante Kim MD Work Phone: [facility] Emergency Dept Comment on above: Other fatigue (Prima ry Dx) Start: 10-31-2021 End: 10-31-2021 [facility]ed [facility] Start: 10-21-2021 End: 10-29-2021 Evaluation and management of inpatient UNKNOWN PROVIDER [facility] Start: 10-21-2021 End: 10-29-2021 Evaluation and management of inpatient Lisa Michelle DO Work Phone: [facility] Comment on above: Leg swelling (Primar y Dx); Acute deep vein thrombosis (DVT) of proximal vein of lower extremity, unspecified laterality (HCC) Start: 10-20-2021 End: 10-20-2021 [facility]ed [facility] Start: 10-17-2021 Telephone encounter Nicole davis MD Work Phone: [facility] Comment on above: Missed Appointment Start: 09-19-2021 End: 09-19-2021 Departed [facility] Start: 11-02-2020 AUDIT Monika Elias rt Work Phone: [facility] Work Phone: Start: 10-27-2020 AUDIT Monika Elias rt Work Phone: [facility] Work Phone: Start: 07-13-2020 Patient encounter procedure Monika Staley [facility] Work Phone: Start: 04-13-2020 Patient encounter procedure Wing Ritter [facility] Work Phone: Start: 04-07-2020 Patient encounter procedure Wing Ritter [facility] Work Phone: Start: 03-18-2020 Patient encounter procedure Wing Ritter [facility] Work Phone: Start: 01-20-2020 Patient encounter procedure Monika Staley MD [id number]-Sssjw Work Phone: Start: 11-13-2019 End: 11-13-2019 Subsequent hospital visit by physician [facility] Comment on above: Non-pressure chronic ulcer left lower leg, 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] Start: 11-06-2019 Patient encounter procedure Monika Staley MD FQ-Jrifzvywep-Sxeto Work Phone: Start: 06-18-2019 End: 06-18-2019 Subsequent [...] Start: 10-26-2021 Electroencephalogram w/rec awake&asleep Sarina Pineda [employer] Work Phone: Start: 10-26-2021 Ct head/brain w/o co ntrast material Sarina Pineda [employer] Work Phone: Start: 10-26-2021 Prothrombin time Andres Sheridan MD Work Phone: Start: 10-25-2021 Speech and language therapy regime Sarina Pineda [employer] Work Phone: Start: 10-25-2021 Prothrombin time Andres [...] count reticulo cyte automated Ellen Massey Niesha [employer] Work Phone: Start: 10-21-2021 C-reactive protein Jax Scherer [employer] Work Phone: Start: 10-21-2021 Non-invas physiologi c std extremity art 2 level Shruthi Malik [employer] Work Phone: Start: 10-21-2021 Radex calcaneus mini mum 2 views Shruthi Malik [employer] Work Phone: Start: 10-21-2021 Dup-scan xtr veins [...] Comment: Speci men Type: BLOOD SPECIMENOrdering Facility: [facility] Address: [address] [place] [address] Performed By: #### T SCR ####[facility] BLOOD BANKCLIA [id number] [address] Start: 08-04-2021 Antibody screen Comment on above: Order Comment: Speci men Type: BLOOD SPECIMENOrdering Facility: [facility] Address: [address] [place] [address] Performed By: #### T SCR ####[facility] BLOOD BANKCLIA [id number] [address] Start: 08-01-2021 Antibody screen Comment on above: Order Comment: Speci men Type: BLOOD SPECIMENOrdering Facility: [facility] Address: [facility] [place] [address] Performed By: #### T SCR ####[facility] BLOOD BANKCLIA [id number] [place] [address] [facility] Start: 06-07-2021 Antibody screen Comment on above: Order Comment: Speci men Type: BLOOD SPECIMEN Performed By: #### T SCR ####[facility] BLOOD BANKCLIA [id number] [place] [address] [facility] Start: 09-02-2020 Lipid 1996 panel [...] History of Interrupt ion Inferior Vena Cava [place] Filter Placement Monika Staley Urine culture Plan of Treatment Date Care Activity Detail Author Start: 09-22-2026 DTaP/Tdap/Td vaccine (2 - Td or Tdap) DTaP/Tdap/Td vaccine (2 - Td or Tdap) [facility] Start: 09-22-2026 DTaP/Tdap/Td vaccine (2 - Td) DTaP/Tdap/Td vaccine (2 - Td) [facility] Work Phone: Start: 09-22-2026 DTaP/Tdap/Td Vaccine s (2 - Td or Tdap) DTaP/Tdap/Td Vaccines (2 - Td or Tdap) [facility] Start: 09-02-2025 Lipid panel Lipid Panel [facility] Start: 03-02-2025 Registered Referred Registered [facility] [facility] Start: 02-26-2025 Registered Referred Registered [facility] [facility] Start: 02-23-2025 Registered Referred Registered [facility] [facility] Start: 02-19-2025 Registered Referred Registered [facility] Start: 02-16-2025 Registered Referred Registered [facility] [facility] Start: 08-22-2024 DIABETES SCREEN DIABETES SCREEN [facility] Start: 12-04-[address] [facility] Start: 12-04-[address] screen [facility] Work Phone: Start: 09-13-2023 End: 09-13-2023 Patient encounter procedure 09/13/2023 11:30 AM EDT Office Visit [facility] [address] [place] [id number] Rebecca Buck MD [address] [place], [place] [id number] [facility] Start: 08-31-2023 End: 08-31-2023 Patient encounter procedure 08/31/2023 9:30 AM EDT Appointment [facility] [address] [place] [phone] Rebecca Buck MD [address] [place] [address] [facility] [address] [facility] Start: 08-13-2023 End: 08-12-2024 Basic metabolic 1998 panel - Serum or Plasma Basic metabolic panel Lab Routine Calculus of ureter Expected: 08/13/2023 (Approximate), Expires: 08/12/2024 [facility] Comment on above: Expected: 08/13/2023 (Approximate), Expires: 08/12/2024 Start: 08-13-2023 End: 08-12-2024 CT Abdomen WO contrast CT abdomen pelvis wo IV contrast Imaging Routine Left flank pain Calculus of ureter Expected: 08/13/2023, Expires: 08/12/2024 [facility] Comment on above: Expected: 08/13/2023 , Expires: 08/12/2024 Start: 08-13-2023 End: 02-12-2024 PSA, Monitoring ([facility]) PSA, Monitoring ([facility]) Lab Routine Disease of prostate Expected: 08/13/2023 (Approximate), Expires: 02/12/2024 [facility] Work Phone: Comment on above: Expected: 08/13/2023 (Approximate), Expires: 02/12/2024 Start: 08-13-2023 End: 08-13-2023 Patient encounter procedure 08/13/2023 10:00 AM EDT Office Visit [facility] [address] [place] [phone] Rebecca Buck MD [address] [place] [address] [facility] Start: 07-17-2023 Bacteria identified in Urine by Culture [facility] Start: 07-17-2023 [facility] Start: 07-16-2023 Measurement of substance [facility] Start: 05-07-2023 Medicare Advantage A nnual Wellness Visit Medicare Advantage Annual Wellness Visit [facility] Start: 03-02-2023 Creatinine measurement Creatinine Le carmela [facility] Start: 03-02-2023 Potassium measurement Potassium Leve l [facility] Start: 08-22-2022 Diabetes mellitus screening Diabetes Screening [facility] Start: 01-05-2022 Influenza vaccination [facility] Start: 12-23-2021 EPV, Provider: Wing Ritter, Status: Pen, Time: 9:30 AM EPV, Provider: Wing Ritter, Status: Pen, Time: 9:30 AM NQ-[id number]-[id number] ma Work Phone: Start: 12-05-2021 Influenza vaccination Flu vaccine (# 1) [facility] Start: 12-05-2021 Blood chemistry [facility] Work Phone: Start: 12-05-2021 Complete blood count [facility] Work Phone: Start: 12-05-2021 [facility] Work Phone: Start: 12-01-2021 [facility] Work Phone: Start: 08-05-2021 COVID-19 VACCINE (4 - Booster for Moderna series) COVID-19 VACCINE (4 - Booster for Moderna series) [facility] Start: 08-05-2021 COVID-19 Vaccine (4 - Booster for Pfizer series) COVID-19 Vaccine (4 - Booster for Pfizer series) [facility] Start: 06-01-2021 COVID-19 Vaccine (4 - Booster for Pfizer series) COVID-19 Vaccine (4 - Booster for Pfizer series) [facility] Start: 05-07-2021 ADVANCE DIRECTIVE DISCUSSION ADVANCE DIRECTIVE DISCUSSION [facility] Start: 08-11-2020 Screening for malign ant neoplasm of colon [facility] Start: 07-30-2020 Screening for malign ant neoplasm of colon [facility] Start: 01-20-2020 Echocardiography Echocardiogram [facility] [address] [place] Work Phone: Start: 01-06-2020 Influenza vaccination INFLUENZA (#1) [facility] Start: 12-04-2019 Annual Wellness Visi t (AWV) Annual Wellness Visit (AWV) [facility] Start: 12-04-2019 Creatinine monitoring Creatinine mon itoring [facility] Work Phone: Start: 12-04-2019 Hepatitis C screen Hepatitis C scree n [facility] Work Phone: Comment on above: Postponed from 05/06 (Patient Refused) Start: 12-04-2019 Potassium monitoring Potassium monit oring [facility] Work Phone: Start: 12-04-2019 Prostate specific an tigen measurement Prostate Specific Antigen (PSA) Screening or Monitoring [facility] Start: 12-04-2019 Shingles Vaccine (1 of 2) Day gles Vaccine (1 of 2) [facility] Work Phone: Comment on above: Postponed from 05/06 (Patient Refused) Start: 06-07-2019 Colon Cancer Screen FIT/FOBT [facility] Work Phone: Start: 08-14-2017 LIPID SCREEN LIPID SCREEN [facility] Start: 2017 ADVANCE DIRECTIVE DISCUSSION ADVANCE DIRECTIVE DISCUSSION [facility] Start: 2017 PNEUMOCOCCAL: 65+ (1 - PCV) PNEUMOCOCCAL: 65+ (1 - PCV) [facility] Start: 2017 PNEUMOVAX AGE 65 AND OVER WITH 5YR LOOKBACK (#1) PNEUMOVAX AGE 65 AND OVER WITH 5YR LOOKBACK (#1) [facility] Start: 04-14-2016 DIABETES SCREEN DIABETES SCREEN [facility] Start: 2012 RSV Immunization age d 60 or older (1 - 1-dose 60+ series) RSV Immunization aged 60 or older (1 - 1-dose 60+ series) [facility] Start: 2007 PROSTATE CANCER SCRE ENING DISCUSSION PROSTATE CANCER SCREENING DISCUSSION [facility] Start: 2002 Shingles vaccine (1 of 2) Day gles vaccine (1 of 2) [facility] Start: 2002 SHINGRIX VACCINE (1 of 2) DAY GRIX VACCINE (1 of 2) [facility] Start: 2002 Tuberculosis screening COLOREC MONIQUE CANCER SCREENING,SEE MODIFIER [facility] Start: 2002 Zoster Vaccines (1 of 2) Zoste r Vaccines (1 of 2) [facility] Start: 1997 COLOGUARD (FIT-DNA) COLOGUARD (FIT-D NA) [facility] Start: 1997 Colonoscopy COLONOSCOPY [facility] Start: 1997 COLORECTAL CANCER SCREENING COLORECTAL CANCER SCREENING [facility] Start: [address] COLONOGRAPHY [facility] Start: 1997 FECAL OCCULT BLOOD FECAL OCCULT BLOO D [facility] Start: 1997 Screening for malign ant neoplasm of colon [facility] Start: 1997 SIGMOIDOSCOPY SIGMOIDOSCOPY [facility] Start: 1987 Diabetes screen Diabetes screen [facility] Start: 1971 Urine microalbumin profile DTAP,TDAP,TD (1 - Tdap) [facility] Start: 1970 ANNUAL PCP TEAM CONTINUITY COORDINATOR KEESHA DISEASE VISIT ANNUAL PCP TEAM CHRONIC DISEASE VISIT [facility] Start: 1970 BP CONTROLLED (<130/80) BP CONTROLLE D (<130/80) [facility] Start: 1970 Diabetes mellitus screening Diabetes Screening [facility] Start: 1970 HEPATITIS C SCREENING HEPATITIS C JOBY VILLARREAL [facility] Start: 1970 Hepatitis C screening [facility] Start: 1964 Adult depression screening assessment DEPRESSION SCREENING [facility] Start: 1964 Depression Screen [facility] Screen [facility] Start: 1962 Diabetic foot examination Diabetes: Foot Exam [facility] Start: 1962 Glaucoma screening Diabetes: R etinopathy Screening [facility] Start: 1962 Preventive dental service Diabetes: Dental Exam [facility] Start: 1952 Echocardiography Echocardiogram [facility] Start: 1952 Hemoglobin A1c measurement Diabetes: Hemoglobin A1C [facility] Start: 1952 Lipid panel Lipid Panel [facility] Start: 1952 Screening for malign ant neoplasm of colon [facility] Bacteria identified in Urine by Culture Urine Culture [facility] Work Phone: End: 03-02-2022 CBC W Auto Differential panel - Blood CBC with Auto Differential Lab Routine One Time for 1 Occurrences starting 03/02/2022 until 03/02/2022 [facility]: Comment on above: One Time for 1 Occur rences starting 03/02/2022 until 03/02/2022 End: 03-02-2022 Comprehensive metabolic 2000 panel - Serum or Plasma Comprehensive Metabolic Panel Lab STAT One Time for 1 Occurrences starting 03/02/2022 until 03/02/2022 [facility] [employer] [facility] [employer] Work Phone: Comment on above: One Time for 1 Occur rences starting 03/02/2022 until 03/02/2022 End: 09-06-2023 CT Abdomen WO contrast [facility] Work Phone: Comment on above: Once for 1 Occurrenc es starting 09/06/2023 until 09/06/2023 End: 12-22-2021 Culture, Blood 2 Culture, Blood 2 Microbiology STAT One Time for 1 Occurrences starting 12/22/2021 until 12/22/2021 [facility] Work Phone: Comment on above: One Time for 1 Occur rences starting 12/22/2021 until 12/22/2021 End: 12-22-2021 Microscopic examination of blood, culture Culture, Blood Microbiology STAT One Time for 1 Occurrences starting 12/22/2021 until 12/22/2021 [facility] Work Phone: Comment on above: One Time for 1 Occur rences starting 12/22/2021 until 12/22/2021 Microscopic examinat ion of blood, culture Culture, Blood Microbiology STAT 12/22/2021 12:[address] [facility] Work Phone: Oxygen therapy [[facility] Data Set] Initiate Oxygen Therapy Protocol Respiratory Care Routine As Needed until discontinued starting 10/21/2021 [facility] Comment on above: As Needed until disc ontinued starting 10/21/2021 Protime-INR Protime-INR Lab Routine Daily until discontinued starting 10/23/2021, [address] [facility] Work Phone: Comment on above: Daily until disconti nued starting 10/23/2021, 7 completed End: 03-02-2022 Protime-INR Protime-INR Lab Routine One Time for 1 Occurrences starting 03/02/2022 until 03/02/2022 [facility] Work Phone: Comment on above: One Time for 1 Occur rences starting 03/02/2022 until 03/02/2022 Spirometry panel Incentive stef metry Respiratory Care Routine Daily until discontinued starting 10/21/2021 [facility] Work Phone: Comment on above: Daily until disconti nued starting 10/21/2021 End: 10-21-2021 Wound ostomy eval Wound ostomy eval Wound Ostomy Routine One Time for 1 Occurrences starting 10/21/2021 until 10/21/2021 [facility] Work Phone: Comment on above: One Time for 1 Occur rences starting 10/21/2021 until 10/21/2021 [facility] NEGATED: Highlighted row has been ruled out! Planned Goals not documented [facility] Work Phone: Immunizations Immunization Date Immunization Notes Care Provider Fa cili 03-04-2019 influenza, high dose seasonal, preservative-free Sarika Salas [facility] 12-03-2018 pneumococcal polysac charide vaccine, 23 valent [facility] Salas [facility] Work Phone: 01-25-2018 influenza, high dose [...] Phone: Payers Date Payer Category Payer Unknown [id number] 03-19-2024 Self-pay 01-05-2022 Medicaid 01-05-2022 Medicare 01-05-2022 Medicare [id number] 10-05-2021 Medicaid [id number]. [id number] 06-07-2021 Medicare UHC MEDICARE UHC DUAL COMPLETE HMO SNP [id number] 06/07/2021-Present [phone] [address] [place] [address] Medicare [id number]. 2.7.3.824839.315 06-07-2021 Medicare UHC MEDICARE UNITEDHEALTHCARE DUAL COMPLETE [id number] 06/07/2021-Present [phone] [address] [place] [address] [id number]. 2.7.3.879378.315 11-05-2019 Medicare UHC AARP MEDICAR E [facility] AARP MEDICARE HMO [id number] 11/05/2019-Present O [id number] 1.2.840.643446.1.13.159. 2.7.3.933677.315 07-06-2015 Medicare UHC MEDICARE UHC MEDICARE COMPLETE xxxxxxxxx 2015-Present xxxxxxxxx 1.2.840.389201.1.13.239. 2.7.3.941999.315 1950 Unknown [id number] 2.16.840.1.621155.3.579. 2.668 1950 Unknown [id number] 2.16.840.1.718367.3.579. 2.668 1950 Unknown [id number] 2.840.1.364681.3.579. 2.6605-06-1950 Unknown [id number] 2.16.840.1.125405.3.579. 2.8 1950 Unknown [id number] 2.840.1.198635.3.579. 2.05-06-1950 Unknown [id number] 2.840.1.783691.3.579. 2.668 1950 Unknown [id number] 2.840.1.351464.3.579. 2.668 Private Health Insurance Unknown Unknown [id number] 2.840.1.090635.3.579. 2.462 Unknown [id number] 2.840.1.293747.3.579. 2.462 Unknown [id number] 2.840.1.589225.3.579. 2.462 Unknown [id number] 2.840.1.291264.3.579. 2.462 Unknown [id number] 2.16840.1.631895.3.579. 2.462 Unknown [id number] 2.16.840.1.439371.3.579. 2.462 Unknown [id number] 2.16.840.1.270226.3.579. 2.462 Unknown [id number] 2.16.840.1.874465.3.579. 2.462 Unknown [id number] 2.840.1.495742.3.579. 2.462 Unknown [id number] 2.16.840.1.274149.3.579. 2.462 Unknown [id number] 2.16.840.1.750602.3.579. 2.462 Unknown [id number] 2.16.840.1.164514.3.579. 2.462 Unknown [id number] 2.16.840.1.175408.3.579. 2.462 Unknown [id number] 2.16.840.1.045596.3.579. 2.462 Unknown [id number] 2.16.840.1.927669.3.579. 2.462 Unknown [id number] 2.840.1.246204.3.579. 2.462 Unknown [id number] 2.840.1.512552.3.579. 2.462 Unknown [id number] 2..840.1.849984.3.579. 2.462 Unknown [id number] 2.840.1.468654.3.579. 2.462 Unknown [id number] 2.840.1.946030.3.579. 2.462 Unknown [id number] 2.16.840.1.375137.3.579. 2.462 Unknown [id number] 2.16.840.1.915606.3.579. 2.462 Unknown [id number] 2..840.1.020038.3.579. 2.462 Unknown [id number] 2.16.840.1.539473.3.579. 2.462 Unknown [id number] 2.16.840.1.830145.3.579. 2.462 Unknown [id number] 2.16.840.1.438452.3.579. 2.462 Unknown [id number] 2.16.840.1.146043.3.579. 2.462 Unknown [id number] 2.16840.1.616101.3.579. 2.462 Unknown [id number] 2.16.840.1.704685.3.579. 2.462 Unknown [id number] 2.16840.1.399068.3.579. 2.462 Unknown [id number] 2.16.840.1.063449.3.579. 2.462 Unknown [id number] 2.16840.1.129698.3.579. 2.462 Unknown [id number] 2.16840.1.828748.3.579. 2.462 Unknown [id number] 2.840.1.244446.3.579. 2.462 Unknown [id number] 2.840.1.233694.3.579. 2.462 Unknown [id number] 2.840.1.900873.3.579. 2.462 Unknown [id number] 2.840.1.366397.3.579. 2.462 Unknown [id number] 2.840.1.357056.3.579. 2.462 Unknown [id number] 2.840.1.209933.3.579. 2.462 Unknown [id number] 2.840.1.659504.3.579. 2.462 Unknown [id number] 2.840.1.222180.3.579. 2.462 Unknown [id number] 2.840.1.000276.3.579. 2.462 Unknown [id number] 2.840.1.505083.3.579. 2.462 Unknown [id number] 2.840.1.968853.3.579. 2.462 Unknown [id number] 2.840.1.806467.3.579. 2.462 Unknown [id number] 2.16840.1.682363.3.579. 2.462 Unknown [id number] 2.16.840.1.896462.3.579. 2.462 Unknown [id number] 2.16.840.1.707134.3.579. 2.462 Unknown [id number] 2.16.840.1.066790.3.579. 2.462 Unknown [id number] 2.16.840.1.422728.3.579. 2.462 Unknown [id number] 2.16.840.1.239873.3.579. 2.462 Unknown [id number] 2.16.840.1.657415.3.579. 2.462 Unknown [id number] 2.16.840.1.598159.3.579. 2.462 Unknown [id number] 2.16.840.1.518236.3.579. 2.462 Unknown [id number] 2.16.840.1.584411.3.579. 2.462 Unknown [id number] 2.16.840.1.178882.3.579. 2.462 Unknown [id number] 2.16.840.1.433648.3.579. 2.462 Unknown [id number] 2.16.840.1.001355.3.579. 2.462 Unknown [id number] 2.16.840.1.798255.3.579. 2.462 Unknown [id number] 2.16.840.1.187483.3.579. 2.462 Unknown 07619293 2.16.840.1.166596.3.579. 2.462 Unknown 19456020 2.16.840.1.686332.3.579. 2.462 Unknown 58587263 2.16.840.1.060608.3.579. 2.462 Unknown 69146701 2.16.840.1.203844.3.579. 2.462 Unknown 11447208 2.16.840.1.133967.3.579. 2.462 Unknown 14226030 2.16.840.1.137330.3.579. 2.462 Unknown [id number] 2.16.840.1.415523.3.579. 2.462 Unknown [id number] 2.16.840.1.371243.3.579. 2.462 Unknown [id number] 2.16.840.1.076398.3.579. 2.462 Unknown [id number] 2.16.840.1.703465.3.579. 2.462 Unknown [id number] 2.16.840.1.727297.3.579. 2.462 Unknown [id number] 2.16.840.1.779753.3.579. 2.462 Unknown [id number] 2.16.840.1.318820.3.579. 2.462 Unknown [id number] 2.16.840.1.604511.3.579. 2.462 Unknown [id number] 2.16.840.1.677425.3.579. 2.462 Unknown 15108453 2.16.840.1.657093.3.579. 2.462 Unknown 58879132 2.16.840.1.493999.3.579. 2.462 Unknown 02347267 2.16.840.1.432701.3.579. 2.462 Unknown 22106159 2.16.840.1.879287.3.579. 2.462 Unknown 64777943 2.16.840.1.796716.3.579. 2.462 Unknown 35195619 2.16.840.1.027283.3.579. 2.462 Unknown 10026212 2.16.840.1.366754.3.579. 2.462 Unknown 36077026 2.16.840.1.626602.3.579. 2.462 Unknown 82915682 2.16.840.1.096948.3.579. 2.462 Unknown 46441242 2.16.840.1.406797.3.579. 2.462 Unknown 39048712 2.16.840.1.620524.3.579. 2.462 Unknown 26191225 2.16.840.1.420184.3.579. 2.462 Unknown 21636403 2.16.840.1.647447.3.579. 2.462 Unknown 52007556 2.16.840.1.430200.3.579. 2.462 Unknown 47796640 2.16.840.1.065297.3.579. 2.462 Unknown 17718871 2.16.840.1.623325.3.579. 2.462 Unknown 07331719 2.16.840.1.313134.3.579. 2.462 Unknown 87694688 2.16.840.1.149609.3.579. 2.462 Unknown [id number] 2.16.840.1.987156.3.579. 2.462 Unknown 54702379 2.16.840.1.486461.3.579. 2.462 Unknown 10284068 2.16.840.1.989597.3.579. 2.462 Unknown 44072559 2.16.840.1.065552.3.579. 2.462 Unknown 50192041 2.16.840.1.945202.3.579. 2.462 Unknown 50069301 2.16.840.1.796901.3.579. 2.462 Unknown 14654134 2.16.840.1.542843.3.579. 2.462 Unknown 34653539 2.16.840.1.306854.3.579. 2.462 Unknown 83727624 2.16.840.1.794918.3.579. 2.462 Unknown 98941105 2.16.840.1.767016.3.579. 2.462 Unknown 33674302 2.16.840.1.456847.3.579. 2.462 Unknown 60953415 2.16.840.1.235773.3.579. 2.462 Unknown 32400689 2.16.840.1.900608.3.579. 2.462 Unknown 27229339 2.16.840.1.354280.3.579. 2.462 Unknown 27794069 2.16.840.1.682036.3.579. 2.462 Unknown 51003967 2.16.840.1.329705.3.579. 2.462 Unknown 71075560 2.16.840.1.543544.3.579. 2.462 Unknown 62945365 2.16.840.1.847829.3.579. 2.462 Unknown 87152581 2.16.840.1.378049.3.579. 2.462 Unknown 54779483 2.16.840.1.255327.3.579. 2.462 Unknown [id number] 2.16.840.1.940262.3.579. 2.462 Unknown [id number] 2.16.840.1.250230.3.579. 2.462 Social History Date Type Detail Facility Start: 05-23-2018 End: 05-19-2019 Tobacco smoking status CTIS Former smoker [facility] [employer] Work Phone: History of tobacco use Cigar Smoker [facility] Work Phone: Start: 05-19-2019 End: 08-13-2023 Cigarettes smoked current (pack per day) - Reported [facility] Work Phone: Start: 05-19-2019 End: 08-13-2023 Alcohol intake Current non-drinker of alcohol (finding) [facility] Work Phone: Start: 12-03-2018 History SDOH Physica l Activity DPW 7 [facility] Work Phone: Start: 12-03-2018 History SDOH Physica l Activity MPS 9 [employer] Work Phone: Start: 12-03-2018 End: 10-31-2021 History SDOH Stress 1 [facility] Work Phone: Start: 12-03-2018 History SDOH Financial 5 [facility] Work Phone: Start: 12-03-2018 History SDOH Transpo rt Med 2 [employer] Work Phone: Start: 1950 Sex Assigned At Not on file S [facility] Work Phone: Start: 08-13-2012 End: 11-13-2019 Tobacco smoking status NHIS Never smoker [facility] Start: 05-23-2018 End: 11-13-2019 Tobacco use and exposure Never used [facility] Start: 11-13-2019 History SDOH Alcohol Std Drinks 98 [facility] Start: 10-11-2021 End: 02-15-2022 Exposure to SARS-CoV-2 (event) Not sure [facility] Start: 1950 Sex Assigned At Male W [facility] History of tobacco use Current smoker [facility] Work Phone: History of tobacco use Cigarette Smoker S [facility] Work Phone: Start: 10-31-2021 End: 08-13-2023 Tobacco use panel [facility] Tobacco smoking stat us [facility] Unknown if ever smoked [facility] Work Phone: Start: 07-11-2024 End: 08-21-2024 Sex Male (finding) [facility] NEGATED: Highlighted row - - [facility] Work Phone: Medical Equipment Procedure Code Equipment Code Equipment Origin al Text Equipment Identifier Dates Kit Bactiseal Woodard maria guadalupe Silicone Barium Catheter Shunt Sterile - [id number] Start: 06-08-2021 Catheter Bactise al 14cm External Drainage Csf Sterile Latex Free - [id number] Start: 08-05-2021 Valve Certas Shannon nt Inline - [id number] Start: 06-08-2021 Cass snow Inline - [id number] Start: 08-05-2021 Valve Armando snow Inline - [id number] Start: 08-09-2021 Goals Date Patient Goal [...] confident he can reach it. Added to [facility] exercise information Functional Status Date Assessment Result Facility NEGATED: Highlighted row Functional performance Functional status health issues are not documented [facility] Work Phone: Mental Status Date Assessment Result Facility NEGATED: Highlighted row Cognitive function [Interpretation] Cognitive status health issues are not documented [facility] Work Phone: Clinical Notes 05-31-2021 [...] Hydrocephalus, adult (CMS/HCC) (HCC) Kidney stone Neuropathy LANDSCAPE SUPERVISOR (ventriculoperitoneal) shunt status Past Surgical History: [...] 09/13/23 12:05 PM documented in this encounter [facility] 08-31-2023 Note S: Shanthi from [facility] spoke with [facility] nurse regarding voiding trial procedure. B: [...] Protocols used: Information Only Call - No [facility]-31-[facility]23 Telephone encounter Note S: Shanthi from [facility] spoke with [facility] nurse regarding voiding trial procedure. B: [...] Protocols used: Information Only Call - No Wqyktz-TXFKN-QB [facility] 08-31-2023 Miscellaneous Notes S: Shanthi from [facility] spoke with [facility] nurse regarding voiding trial procedure. B: [...] Protocols used: Information Only Call - No Lwclur-NBRYD-GG documented in this encounter [facility] 08-29-2023 Telephone encounter Note Lm on daughters vm to advise them to call the number for the distribution manager to get clarification, and to call back with further questions [facility] 08-29-2023 Miscellaneous Notes Lm on daughters vm to advise them to call the number for the distribution manager to get clarification, and to call back with further questions Yes, they will need to call the number given to them. Please advise Name of caller: Shanthi Contact phone number: [phone] Relationship to Patient: patient Provider: MD Quinn Practice: [facility] Chief Complaint/Reason for Call: Shanthi called [...] reach out to call Maury Avila at [facility] [phone] to get clarifications. TEA did reach back out to [facility] and advised and provider Maury's #. Please advise Best time of day caller can be reached: Any Patient advised that office/PCP has 24-48 business hours to return their call: N/A documented in this encounter [facility] 08-27-2023 Telephone encounter Note Yes, they will need to call the number given to them. [facility] 08-27-2023 Telephone encounter Note Please advise [facility] 08-21-2023 Telephone encounter Note Name of caller: Shanthi Contact phone number: [phone] Relationship to Patient: patient Provider: MD Quinn Practice: [facility] Chief Complaint/Reason for Call: Shanthi called in to see if Pt would need to come by cot for his CT appt due to Pt being Boaz. TEA did reach out to office and was advised to reach out to Central Scheduling. TEA did reach out to CS and was advised to let [facility] know that she would need to reach out to call Maury Avila at [facility] [phone] to get clarifications. [facility] did reach back out to [facility] and advised and provider Maury's #. Please advise Best time of day caller can be reached: Any Patient advised that office/PCP has 24-48 business hours to return their call: N/A [facility] 08-13-2023 History of Present illness Narrative Images [...] Hydrocephalus, adult (CMS/HCC) (HCC) Kidney stone Neuropathy LANDSCAPE SUPERVISOR (ventriculoperitoneal) shunt status Past Surgical History: [...] 08/13/23 10:45 AM documented in this encounter [facility] 06-25-2023 Telephone encounter Note [facility] called in stating appt scheduled 07/10/23 Guy has to be made further out, pt being transported by cot. Changed appt to 08/13/23 per [facility] only avail time for transport, first avail with DR Buck at 10:00 AM. [facility] 06-25-2023 Miscellaneous Notes [facility] called in stating appt scheduled 07/10/23 Guy has to be made further out, pt being transported by cot. Changed appt to 08/13/23 per [facility] only avail time for transport, first avail with DR Buck at 10:00 AM. documented in this encounter [facility] 12-22-2021 Hospital Discharge instructions SANIA Lou - 12/22/2021 2:32 AM EDT Please take medication as prescribed Please follow up with your Physicians as instructed in this discharge paperwork Thank you for choosing [facility] I appreciate your patience Please return to the emergency department if your symptoms worsen, or new symptoms develop as discussed documented in this encounter [facility] Work Phone: 10-29-2021 Note Hospitalist Discharg [...] abnormality and previous indwelling tubing history of LANDSCAPE SUPERVISOR shunt ? #?Bilateral lower extremity wounds-wound [...] Your Medications These medications were sent to [facility] [address] [place] [address] [address] [facility] - P [phone] - F [phone] [facility] [id number] ? levETIRAcetam 750 MG tablet ? warfarin 6 MG tablet Recommended Follow-up: No follow-up provider specified. Complexity of Follow up: [] Moderate Complexity: follow up within 7-14 calendar days (17777) [x] Severe Complexity: follow up within 7 calendar days (15483) Follow up Testing, Pending results or Referrals [...] Contact Information Primary Emergency Contact: NelsonTriny Address: [address] [place] [address] [place] [address] [facility] Relation: Brother/Sister Secondary Emergency Contact: Melissa Sifuentes Mobile Relation: Child Preferred language: Lebanese Past Surgical History: Past Surgical History: Procedure Laterality Date BRAIN SURGERY CHOLECYSTECTOMY COLONOSCOPY HERNIA REPAIR Immunization History: Immunization History Administered Date(s) Administered Influenza Virus Vaccine 02/08/2015 Influenza, High Dose (Fluzone 65 yrs and older) 01/25/2018, 03/04/2019 Influenza, Quadv, IM, (6 mo and older Fluzone, Flulaval, Fluarix and 3 yrs and older Afluria) 02/24/2016, 02/14/2017 Pneumococcal Conjugate 13-valent ([id number]) 09/22/2016 Pneumococcal Conjugate Vaccine 02/04/2013 Pneumococcal Polysaccharide (Dqjbbeayx19) 12/03/2018 Tdap (Boostrix, Adacel) 09/22/2016 Active Problems: Patient Active Problem List Diagnosis Code Flank pain, acute R10.9 Night muscle spasms M62.838 Chronic fatigue R53.82 Hydrocephalus (HCC) G91.9 Neuropathy G62.9 Erectile dysfunction N52.9 Fluid retention in tissues R60.9 Hyperlipidemia E78.5 Morbidly obese (HCC) E66.01 Leg wound, left S81.802A DVT, lower extremity, recurrent, unspecified laterality ([facility]) I82.409 Moderate malnutrition ([facility]) E44.0 History of seizures Z87.898 Isolation/Infection: [...] Dependent Dressing Dependent Toileting Dependent Feeding Dependent Automotive Engineer Dependent Med Delivery whole in pudding Wound [...] Q4H prn SOB Oxygen Therapy: {Therapy; copd oxygen:73611} Ventilator: { CC Vent List:[id number]} Rehab Therapies: {THERAPEUTIC INTERVENTION:2890833067} Weight Bearing Status/Restrictions: Weight Bearing - Patient was bedbound in hospital Other Medical Equipment (for information only, NOT a DME order): wheelchair, hospital bed, and Boaz Other Treatments: Patient's personal belongings (please select all that are sent with patient): {[facility] DME Belongings:[id number]} RN SIGNATURE: CASE MANAGEMENT/SOCIAL WORK SECTION Inpatient Status Date: Readmission Risk Assessment Score: Readmission Risk Risk of Unplanned Readmission: 11 Discharging to Facility/ Agency Name: Address: Phone: Fax: Dialysis Facility (if applicable) Name: Address: Dialysis Schedule: Phone: Fax: Product Handler/Footwear Sales Coordinator signature: {Esignature:[id number]} PHYSICIAN SECTION Prognosis: Fair Condition at Discharge: Stable Rehab Potential (if transferring to Rehab): Fair Recommended Labs or Other Treatments After Discharge: Coumadin based on INR target range 2-3, Coumadin 6 mg on 10/30 and 10/31, recheck INR 11/01 and notify physician, ideally should be on 6 mg alt with 7 mg daily, PT/OT, follow-up with neurologist in 1 month, continue [facility] Physician Certification: I certify the above information and transfer of Andrew Sifuentes is necessary for the continuing treatment of the diagnosis listed and that he requires Correction Facility for greater than 30 days. Update Admission H&P: No change in H&P PHYSICIAN SIGNATURE: documented in this encounter [facility] Work Phone: 10-29-2021 History of Present illness Narrative [facility] Anticoagulation Management Service ([facility]) Inpatient Warfarin Consult HPI: Andrew Sifuentes is a 71 y.o. 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 Past Medical History: Diagnosis Date ED (erectile dysfunction) Hemorrhoids Hydrocephalus, adult (HCC) Kidney stone Neuropathy LANDSCAPE SUPERVISOR (ventriculoperitoneal) shunt status Patient is newly referred to the [facility] clinic for warfarin management. Pt [...] PharmD IRVIN Consult Service is available daily [phone]. Please search for covering pharmacist name via [facility] or Groups --> Pharmacy --> Anti-Coagulation Consult Pharmacist (on 3rd page). If no response via Sparrow, please page [phone]. Patient seen and chart reviewed. Afebrile. Adequate oxygenation on room air. Baseline mentation. Exam stable X 5 systems. Hgb 11.0 WBC 10.0 K Platelets 344 K Creatinine 0.71 GFR > 90 cc/min. NSE 20.8 with hemolysis. PT 30.8 INR 3.1 Conversion to Warfarin has been completed. APS w/u pending. Discussed with patient's senior staff consultant. Will continue to monitor. Total visit time > 35 minutes. Neurology Attending Progress Note SUBJECTIVE: No issues overnight. Care discussed with nursing staff/patient's medical team MRI brain reported nothing acute. Assessment and Plan: 71 yr M with PMH obstructive hydrocephalus s/p LANDSCAPE SUPERVISOR shunt in 1987, needing multiple revisions [...] normal limits and both old and new LANDSCAPE SUPERVISOR shunt tubing noted. At present patient is awake, follows commands, was able to tell his name, and that he was in hospital but not oriented to time. Per documentation patient had NCSE in May 2021, was on Vimpat, but it was discontinued as there was no evidence of recurrent seizures in july 2021 by Neurology at [facility], per daughter patient was on Dilantin for 31 yrs. Per daughter patient had seizures in the past and also felt he had staring episodes 10/26/2021 morning. Per daughter patient has been essentially bed bound in CT since May 2021 but prior to that was independent Impressions: H/O hydrocephalus H/O seizure, H/O stroke Acute DVT H/O PE Plan: -MRI brain w/o contrast nothing acute -CT head done during this admission reported no hydrocephalus, ventricles within normal limits and both old and new LANDSCAPE SUPERVISOR shunt tubing noted -EEG mild to moderate slow, no seizures reported -Labs reviewed -Hydrocephalus management per Neurosurgery. At present patient does not have hydrocephalus on CT head done this admission. No Neurosurgery services available as inpatient in [facility]. Patient can follow up with Neurosurgery [...] May 2021 when he was admitted to [facility]. Per daughter she would want patient [...] is no in house Neurology coverage at [facility] over the weekend, primary hospitalist team to contact corporate consultant Neurology at [facility] for any weekend neurological issues related to the patient and if need to discuss any neurological test results/findings. Other deal in house Neurology coverage will be available from Sunday at [facility] and please call corporate consultant Neurology back on Sunday if need further assistance. This note has been generated using Reverse Medical dictation software. It may contain incorrect words, punctuation's and spellings that were not noted in the review of the note prior to signing. This note has been generated using Reverse Medical dictation software. It may contain incorrect words, [...] eGFR >90.0 >60 mL/min EGFR IF NonAfrican Faroese >90.0 >60 mL/min Calcium 9.1 8.4 - [...] 26 AST 24 BILITOT 0.4 LABALBU 3.7 @[facility]) ABGs: )No results for input(s): PH, [...] Radiology ACCESSION EXAM DATE/TIME PROCEDURE ORDERING PROVIDER [id number] 10/21/2021 15:30 EDT CR Calcaneus 2+ Views [id number] -SHRUTHI MALIK Left CPT code 94344 Reason For Exam (CR Calcaneus 2+ Views [...] Result Date: 10/26/2021 [id number] Computed Tomography ACCESSION EXAM DATE/TIME PROCEDURE ORDERING PROVIDER [id number] 10/26/2021 11:[address] Head or Brain w/o JUNIE PINEDA ALLISON Contrast CPT code 43505 Reason For Exam (CT Head or Brain w/o Contrast) hydrocephalus. thank you Report CLINICAL INFORMATION: Hydrocephalus. Shunt. 3 mm axial cuts through the head are obtained without IV contrast. The examination is compared to a previous study dated 06/29/2014. FINDINGS: Old LANDSCAPE SUPERVISOR shunt tubing is noted bilaterally. The [...] are clear. IMPRESSION: 1. Old and new LANDSCAPE SUPERVISOR shunt tubing. 2. No hydrocephalus. 3. [...] Imaging ACCESSION EXAM DATE/TIME PROCEDURE ORDERING PROVIDER [id number] 10/23/2021 11:08 EDT MRI Abdomen w/o Contrast SRIVASTAVAWING CPT code 80309 Reason For Exam (MRI Abdomen w/o Contrast) [...] Medicine ACCESSION EXAM DATE/TIME PROCEDURE ORDERING PROVIDER [id number] 10/21/2021 07:55 EDT NM Pulmonary Perfusion [id number] -MAY CASH w/ Vent Aerosol CPT code 66528 A9567 Reason For Exam (NM Pulmonary Perfusion [...] Extremity Bilateral Result Date: 10/22/[address] [facility] --- Ankle Brachial Index Report Patient DO GurpreetB: 1950 Study 10/21/2021 Name: Andrew Gonzalez (71yrs) Date: Age: 71 Account: [id number] Gender: M Loc: 444W BP: Ordering Physician: Shruthi Malik Divisional Merchandising Manager: Rody Cross RDMS, RVT Interpreting Physician: Carina Call --- Location: [facility] --- Indications: Foot wounds. Originally ordered as a full PVR. Ordering INDUSTRIAL RETROFIT DESIGNER had to modify the order to ABIs [...] supine position. Images were obtained using a Spotwises vascular ultrasound machine. --- Arterial pressure indices: [...] VENOUS DUPLEX Result Date: 10/21/[address] [facility] --- Lower Extremity Venous Duplex Report Patient DO GurpreetB: 1950 Study 10/21/2021 Name: Andrew Gonzalez (71yrs) Date: Age: 71 Account: [id number] Gender: M Loc: 444 BP: Ordering Physician: May Cash Divisional Merchandising Manager: Rody Cross RDMS, RVT Interpreting Physician: Carina Call --- Location: [facility] --- Indications: Bilateral lower leg edema. --- [...] supine position. Images were obtained using a Spotwises vascular ultrasound machine. --- Venous flow and [...] Radiology ACCESSION EXAM DATE/TIME PROCEDURE ORDERING PROVIDER [id number] 10/21/2021 08:16 EDT CR Chest 1 View Frontal [id number] MAY BOGGS CPT code 91648 Reason For Exam (CR Chest 1 View [...] Result Date: 10/22/2021 [id number] Computed Tomography ACCESSION EXAM DATE/TIME PROCEDURE ORDERING PROVIDER [id number] 10/22/2021 13:[address] Abdomen/Pelvis (No SRIVASTAVA, WING PO, No IV) CPT code 94021 Reason For Exam (CT Abdomen/Pelvis (No PO, [...] Imaging ACCESSION EXAM DATE/TIME PROCEDURE ORDERING PROVIDER [id number] 10/27/2021 13:14 EDT MRI Brain w/o Contrast UNASSIGNED, UNASSIGNED CPT code 71648 Reason For Exam (MRI Brain w/o Contrast) stroke Patient has LANDSCAPE SUPERVISOR shunt in place, please follow Radiology [...] included. Hospitalist Progress Note 10/28/2021 11:37 AM [phone]: Please page me @ [phone] for patient care issues. [phone]: Please page plate former for any issues@ night Subjective: Admit Date: [...] abnormality and previous indwelling tubing history of LANDSCAPE SUPERVISOR shunt # Bilateral lower extremity wounds-wound [...] Services This report was created using the Micro [employer] Speaking voice-activated system. Despite prompt dictation and careful editorial review, there may be subtle contextual errors in this report, due to misrecognition of the spoken word. Speech Language Pathology Facility/Department: [facility] Dysphagia Treatment Note NAME: [...] and gloves were worn throughout this session. [facility] Anticoagulation Management [facility] ([facility]) Inpatient Warfarin Consult HPI: Andrew Sifuentes is a 71 y.o. 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 Past Medical History: Diagnosis Date ED (erectile dysfunction) Hemorrhoids Hydrocephalus, adult (HCC) Kidney stone Neuropathy LANDSCAPE SUPERVISOR (ventriculoperitoneal) shunt status Patient is newly referred to the [facility] clinic for warfarin management. Pt [...] drug interactions and adjust dose accordingly. 3. [facility] will manage while inpatient and sign off at discharge. Patient resides in a SNF. 4. Will provide warfarin education including [facility] warfarin booklet, if appropriate. Brionna Le, PharmD candidate Josie Gupta RPh, PharmD [facility] Consult Service is available daily [phone]. Please search for covering pharmacist name via PerfectServe or Groups --> Pharmacy --> Anti-Coagulation Consult Pharmacist (on 3rd page). If no response via PerfectServe, please page [phone]. Follow up b/l foot wounds. No new [...] yr M with PMH obstructive hydrocephalus s/p LANDSCAPE SUPERVISOR shunt in 1987, needing multiple revisions [...] normal limits and both old and new LANDSCAPE SUPERVISOR shunt tubing noted. At present patient is awake, follows commands, was able to tell his name, and that he was in hospital but not oriented to time. Per documentation patient had NCSE in May 2021, was on Vimpat, but it was discontinued as there was no evidence of recurrent seizures in july 2021 by Neurology at [facility], per daughter patient was on Dilantin for 31 yrs. Per daughter patient had seizures in the past and also felt he had staring episodes 10/26/2021 morning. Per daughter patient has been essentially bed bound in CT since May 2021 but prior to that was independent Impressions: H/O hydrocephalus H/O seizure, H/O stroke Acute DVT H/O PE Plan: -MRI brain w/o contrast. Per daughter she would like MRI brain done to evaluate for strokes -CT head done during this admission today reported no hydrocephalus, ventricles within normal limits and both old and new LANDSCAPE SUPERVISOR shunt tubing noted -EEG mild to moderate slow, no seizures reported -Labs reviewed -Hydrocephalus management per Neurosurgery. At present patient does not have hydrocephalus on CT head done this admission. No Neurosurgery services available as inpatient in [facility]. Patient can follow up with Neurosurgery [...] May 2021 when he was admitted to [facility]. Per daughter she would want patient [...] interim. This note has been generated using Reverse Medical dictation software. It may contain incorrect words, punctuation's and spellings that were not noted in the review of the note prior to signing. This note has been generated using Reverse Medical dictation software. It may contain incorrect words, [...] LABALBU, AMYLASE, LIPASE in the last 72 hours.@[facility]) ABGs: )No results for input(s): PH, [...] Radiology ACCESSION EXAM DATE/TIME PROCEDURE ORDERING PROVIDER [id number] 10/21/2021 15:30 EDT CR Calcaneus 2+ Views [id number] -SHRUTHI MALIK Left CPT code 96257 Reason For Exam (CR Calcaneus 2+ Views [...] Tomography ACCESSION EXAM DATE/TIME PROCEDURE ORDERING PROVIDER [id number] 10/26/2021 11:[address] Head or Brain w/o EDWIN, INDUSTRIAL RETROFIT DESIGNER, SARINA Contrast CPT code 74150 Reason For Exam (CT Head or Brain w/o Contrast) hydrocephalus. thank you Report CLINICAL INFORMATION: Hydrocephalus. Shunt. 3 mm axial cuts through the head are obtained without IV contrast. The examination is compared to a previous study dated 06/29/2014. FINDINGS: Old LANDSCAPE SUPERVISOR shunt tubing is noted bilaterally. The [...] are clear. IMPRESSION: 1. Old and new LANDSCAPE SUPERVISOR shunt tubing. 2. No hydrocephalus. 3. [...] Imaging ACCESSION EXAM DATE/TIME PROCEDURE ORDERING PROVIDER [id number] 10/23/2021 11:08 EDT MRI Abdomen w/o Contrast WING SRIVASTAVA CPT code 49082 Reason For Exam (MRI Abdomen w/o Contrast) [...] Medicine ACCESSION EXAM DATE/TIME PROCEDURE ORDERING PROVIDER [id number] 10/21/2021 07:55 EDT NM Pulmonary Perfusion [id number] MAY BOGGS w/ Vent Aerosol CPT code 75558 A9567 Reason For Exam (NM Pulmonary Perfusion [...] Extremity Bilateral Result Date: 10/22/[address] [facility] --- Ankle Brachial Index Report Patient Gurpreet RADHA: 1950 Study 10/21/2021 Name: Andrew Gonzalez (71yrs) Date: Age: 71 Account: [id number] Gender: M Loc: 444W BP: Ordering Physician: Shruthi Malik Divisional Merchandising Manager: Rody Cross RDMS, RVT Interpreting Physician: Carina Call --- Location: [facility] --- Indications: Foot wounds. Originally ordered as a full PVR. Ordering INDUSTRIAL RETROFIT DESIGNER had to modify the order to ABIs [...] supine position. Images were obtained using a Spotwises vascular ultrasound machine. --- Arterial pressure indices: [...] VENOUS DUPLEX Result Date: 10/21/[address] [facility] --- Lower Extremity Venous Duplex Report Patient DO GurpreetB: 1950 Study 10/21/2021 Name: Andrew Gonzalez (71yr) Date: Age: 71 Account: [id number] Gender: M Loc: 444 BP: Ordering Physician: May Cash Divisional Merchandising Manager: Rody Cross RDMS, RVT Interpreting Physician: Jakub, Carina --- Location: [facility] --- Indications: Bilateral lower leg edema. --- [...] supine position. Images were obtained using a Spotwises vascular ultrasound machine. --- Venous flow and [...] Radiology ACCESSION EXAM DATE/TIME PROCEDURE ORDERING PROVIDER [id number] 10/21/2021 08:16 EDT CR Chest 1 View Frontal [id number] MAY BOGGS CPT code 73367 Reason For Exam (CR Chest 1 View [...] Tomography ACCESSION EXAM DATE/TIME PROCEDURE ORDERING PROVIDER [id number] 10/22/2021 13:[address] Abdomen/Pelvis (No SRIVASTAVA, WING PO, No IV) CPT code 81958 Reason For Exam (CT Abdomen/Pelvis (No PO, [...] PM Consults Speech Language Pathology Facility/Department: [facility] Dysphagia Treatment Note NAME: [...] reactivity and state change, indicative of a nmge-fr-tileukti diffuse encephalopathy of nonspecific etiology. There are [...] Easy to chew diet/cut up. NEVILLE Jones M.A.CCC/[employer] Time session ended: 1156 Total session minutes: 23 Images from the original note were not included. Hospitalist Progress Note 10/27/2021 10:40 AM [phone]: Please page me @ [phone] for patient care issues. 8511-5534: Please page plate former for any issues@ night Subjective: Admit Date: [...] Services This report was created using the Micro Inter[employer] Speaking voice-activated system. Despite prompt dictation and careful editorial review, there may be subtle contextual errors in this report, due to misrecognition of the spoken word. [facility] Anticoagulation Management [facility] ([facility]) Inpatient Warfarin Consult HPI: Andrew Sifuentes is a 71 y.o. 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 Past Medical History: Diagnosis Date ED (erectile dysfunction) Hemorrhoids Hydrocephalus, adult (HCC) Kidney stone Neuropathy LANDSCAPE SUPERVISOR (ventriculoperitoneal) shunt status Patient is newly referred to the [facility] clinic for warfarin management. Pt [...] SNF. 4. Will provide warfarin education including [facility] warfarin booklet, if appropriate. Thank you for this consult Brionna Le, RigoD candidate Josie Gupta [facility], PharmD IRVIN Consult Service is available daily [phone]. Please search for covering pharmacist name via Sparrow or Groups --> Pharmacy --> Anti-Coagulation Consult Pharmacist (on 3rd page). If no response via Sparrow, please page [phone]. I cleaned under patient's finger nails with [...] with Warfarin. Discussed with patient's senior staff consultant. Will continue to monitor. Total [...] if concern Hydrocephalus Chronic WOODARD's - Revised LANDSCAPE SUPERVISOR shunt - daughter requested that pt have CT / MRI of brain and neurology be consulted, this was done. - "Hydrocephalus management per Neurosurgery. At present patient does not have hydrocephalus on CT head done this morning. No Neurosurgery services available as inpatient in [facility]. Patient can follow up with Neurosurgery [...] get report from nursing. Continue wound care. [facility]ticoagulation [facility] ([facility]) Inpatient Warfarin Consult HPI: Andrew Sifuentes is a 71 y.o. 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 Past Medical History: Diagnosis Date ED (erectile dysfunction) Hemorrhoids Hydrocephalus, adult (HCC) Kidney stone Neuropathy LANDSCAPE SUPERVISOR (ventriculoperitoneal) shunt status Patient is newly referred to the [facility] clinic for warfarin management. Pt was referred by Ellen B Niesha, DERRICK BOAT CAPTAIN-TOP FORMER. Pt is on warfarin for DVT and [...] PharmD IRVIN Consult Service is available daily [phone]. Please search for covering pharmacist name via Sparrow or Groups --> Pharmacy --> Anti-Coagulation Consult Pharmacist (on 3rd page). If no response via Sparrow, please page [phone]. Moon daughter stated that any of patient's family can call and obtain an update on patient's status. Speech Language Pathology Facility/Department: [facility] CLINICAL BEDSIDE SWALLOW EVALUATION [...] a small bore straw. Additionally discussed with [employer] MATHEMAT[employer] DEPARTMENT, agreeable to assess tomorrow. Recent Chest Xray/CT [...] and liquids between bites. Treatment Plan Requires [employer]CT FAC[employer]Y MATHEMATICS DEPARTMENT Intervention: Yes Duration of Treatment: 2 weeks [...] Education Response: Verbalizes understanding;Needs reinforcement Therapy Time [employer] DEPARTMENT Individual Minutes Time In: 826 Time Out: 852 Minutes: 26 NEVILLE Jones 10/26/2021 9:20 AM Comprehensive Nutrition Assessment Type and Reason for Visit: Initial (DT referral for wounds) Nutrition Recommendations/Plan: 1. Recommend to continue: Easy to Chew diet with Thin Liquids as currently ordered and safe for patient to participate in. Discussed with: RN, INDUSTRIAL RETROFIT DESIGNER, and [employer]CT FACULTY MATHEMATICS DEPARTMENT. [employer] MATHEMAT[employer] DEPARTMENT to assess tomorrow, best diet and liquid [...] Malnutrition Assessment: Malnutrition Status: Moderate malnutrition (10/25/21 4989) Context: Chronic Illness Findings of the 6 [...] & deltoids),Scapula (trapezius) Fluid Accumulation: Mild Extremities Brake Repairer Hydraulic Strength: Not Performed Nutrition Assessment: 71 year [...] a small bore straw. Additionally discussed with [employer]AC[employer]Y MATHEMATICS DEPARTMENT, agreeable to assess tomorrow. Nutrition Related Findings: [...] Anthropometric Measures: Height: 5' 7.01" (170.2 cm) [place] Body Weight (IBW): 148 lbs (67 kg) [...] On: Kcal/kg Weight Used for Energy Requirements: [place] (67.15 kg) Energy (kcal/day): 1600-3473 (27-32 kcal/kg IBW) --> increased need d/t wounds Weight Used for Protein Requirements: [place] (67.15 kg) Protein (g/day): 67-101 (1.0-1.5 g protein/kg IBW) Method Used for Fluid Requirements: Other (Comment) Fluid (ml/day): 4663-2024 mL daily or per MD Nutrition Diagnosis: [...] Plan of Care discussed with: Patient, RN, INDUSTRIAL RETROFIT DESIGNER Edwin Goals: Goals: other (specify) Specify Other [...] to determine Puja Almanza RD, LD Contact: *[phone] Sparrow Hematology/Oncology Attending Progress Note SUBJECTIVE: Patient seen [...] IRON, TIBC, FERRITIN No results found for: [id number] No results found for: FOLATE PT 15.6 INR 1.5 CA 19 - 9 is 17 Protein S 138% Protein C 186% ASSESSMENT AND PLAN GI input appreciated. Patient continues with subtherapeutic INR. GI input appreciated. Discussed with patient's senior staff consultant. Will continue monitor. Total visit time > 35 minutes. [facility]ticoagulation [facility] ([facility]) Inpatient Warfarin Consult HPI: Andrew Sifuentes is a 71 y.o. 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 Past Medical History: Diagnosis Date ED (erectile dysfunction) Hemorrhoids Hydrocephalus, adult (HCC) Kidney stone Neuropathy LANDSCAPE SUPERVISOR (ventriculoperitoneal) shunt status Patient is newly referred to the [facility] clinic for warfarin management. Pt [...] SNF. 4. Will provide warfarin education including [facility] warfarin booklet, if appropriate. Thank you for this consult Brionna eL, PharmD candidate Josie Gupta RPh, PharmD [facility] Consult Service is available daily [phone]. Please search for covering pharmacist name via Sparrow or Groups --> Pharmacy --> Anti-Coagulation Consult Pharmacist (on 3rd page). If no response via Sparrow, please page [phone]. Progress Note 10/25/2021 9:36 AM Name: Andrew [...] if concern Hydrocephalus Chronic WOODARD's - Revised LANDSCAPE SUPERVISOR shunt DC planning - 10/25/21: INR [...] if concern Hydrocephalus Chronic WOODARD's - Revised LANDSCAPE SUPERVISOR shunt DC planning - Can be DC'd back to ECF once MRI done if no acute findings, MRI is done, defer to hem / onc on plan for that, awaiting chest PA with fluoro Patient seen and chart reviewed. Consult dictated. Will ask GI to assess concerning the etiology of liver lesions. Will continue to monitor. [facility] ([facility]) Inpatient Warfarin Consult HPI: Andrew Sifuentes is a 71 y.o. 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 Past Medical History: Diagnosis Date ED (erectile dysfunction) Hemorrhoids Hydrocephalus, adult (HCC) Kidney stone Neuropathy LANDSCAPE SUPERVISOR (ventriculoperitoneal) shunt status Patient is newly referred to the [facility] clinic for warfarin management. Pt [...] drug interactions and adjust dose accordingly. 3. [facility] will manage while inpatient and sign off at discharge. Patient resides in a SNF. 4. Will provide warfarin education including [facility] warfarin booklet, if appropriate. Thank you for this consult Brionna Le, PharmD candidate Josie Gupta RPh, PharmD [facility] Consult Service is available daily [phone]. Please search for covering pharmacist name via MovableInkve or Groups --> Pharmacy --> Anti-Coagulation Consult Pharmacist (on 3rd page). If no response via PerfectServe, please page [phone]. Follow up foot wounds Patient is more alert this morning. Waffle boots are on Ulcer left heel ulcer right foot Foot drop PE, chart reviewed. Patient relates that he does not walk at home. c ontinue wound care. Images from the original note were not included. Hospitalist Progress Note 10/23/2021 1:47 PM [phone]: Please page me ([phone]) or perfect serve me for patient care issues. [phone]: Please page IMS night Hospitalist for any issues. Subjective: Admit Date: 10/21/2021 PCP: MONIKA STALEY MD Room#: 052/1462 Admitting Synopsis: 71 y/o male presents from [...] if concern Hydrocephalus Chronic WOODARD's - Revised LANDSCAPE SUPERVISOR shunt DC planning - Can be [...] Hemorrhoids Hydrocephalus, adult (HCC) Kidney stone Neuropathy LANDSCAPE SUPERVISOR (ventriculoperitoneal) shunt status Medications: sodium chloride [...] of Hospitalist Medicine Inpatient Medical Services PAGER: [phone] Nutrition rescreen completed. Pt referred to RD for foot ulcers. Occupational Therapy Facility/Department: [facility] Occupational Therapy Initial Assessment Name: Andrew Sifuentes : 1950 Date of Service: 10/23/2021 OT eval and treat orders received. Chart reviewed. Per notes pt from [facility], is Boaz lift at baseline, non-ambulatory, and requires assist for all ADLs. Will d/c OT orders. Elizabeth Gutierrez OT Physical Therapy Facility/Department: [address] Physical Therapy Initial Assessment Name: Andrew Sifuentes : 1950 Date of Service: 10/23/2021 PT eval and treat orders received. Chart reviewed. Per notes pt from [facility], is Boaz lift at baseline, non-ambulatory. Will d/c PT orders. Lloyd Silva PT [facility] Anticoagulation [facility] ([facility]) Inpatient Warfarin Consult HPI: Andrew Sifuentes is a 71 y.o. 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 Past Medical History: Diagnosis Date ED (erectile dysfunction) Hemorrhoids Hydrocephalus, adult (HCC) Kidney stone Neuropathy LANDSCAPE SUPERVISOR (ventriculoperitoneal) shunt status Patient is newly referred to the [facility] clinic for warfarin management. Pt [...] PharmD IRVIN Consult Service is available daily [phone]. Please search for covering pharmacist name via Sparrow or Groups --> Pharmacy --> Anti-Coagulation Consult Pharmacist (on 3rd page). If no response via MovableInkve, please page [phone]. Department of Podiatry Attending Consult Note Reason for Consult: Wound care Requesting Physician: MD Oksana CHIEF COMPLAINT: Foot wounds HISTORY OF PRESENT ILLNESS: The patient is a 71 y.o. male with b/l foot wounds. Patient is awake , but not answering questions. Past Medical History: Diagnosis Date ED (erectile dysfunction) Hemorrhoids Hydrocephalus, adult (HCC) Kidney stone Neuropathy LANDSCAPE SUPERVISOR (ventriculoperitoneal) shunt status Past Surgical History: [...] included. Hospitalist Progress Note 10/22/2021 6:33 AM [phone]: Please page me ([phone]) or perfect serve me for patient care issues. [phone]: Please page [facility] night Hospitalist for any issues. Subjective: Admit Date: 10/21/2021 PCP: MONIKA STALEY MD Room#: 543/1461 Admitting Synopsis: 71 y/o male presents from [...] consider MRI if concern Hydrocephalus - Revised LANDSCAPE SUPERVISOR shunt Interval History: No overnight issues. [...] no cyanosis or edema and unable to material mover BLE, this is old Musculoskeletal: Muscle [...] Hemorrhoids Hydrocephalus, adult (HCC) Kidney stone Neuropathy LANDSCAPE SUPERVISOR (ventriculoperitoneal) shunt status Medications: sodium chloride [...] of Hospitalist Medicine Inpatient Medical Services PAGER: [phone] Images from the original note were not included. Hospitalist Progress Note 10/21/2021 5:31 PM [phone]: Please page me ([phone]) or perfect serve me for patient care issues. [phone]: Please page [facility] night Hospitalist for any [...] Will need chronic OAC Hydrocephalus - Revised LANDSCAPE SUPERVISOR shunt Interval History: No overnight issues. [...] Hemorrhoids Hydrocephalus, adult (HCC) Kidney stone Neuropathy LANDSCAPE SUPERVISOR (ventriculoperitoneal) shunt status Medications: sodium chloride [...] of Hospitalist Medicine Inpatient Medical Services PAGER: [phone] Family member Triny, sister to patient, called back to the hospital stating that she was returning a call from a provider. Her phone number is [phone] to speak with whomever was attempting to reach out to her. documented in this encounter [facility] Work Phone: 10-17-2021 Miscellaneous Notes Mr. Sifuentes missed his hospital stay follow-up appointment w. Dr. Lim today. Called to Reschedule. Could not get through. "Subscriber you have dialed not in service" - was the automated voice mail. Unable to leave VM. No other phone# available. Ramya Negro [employer] [facility] documented in this encounter [facility] 08-19-2021 Note [facility] 08-19-2021 [facility] 08-18-2021 [facility] 08-18-2021 Note [facility] 08-17-2021 Note [facility] 08-17-2021 Note [facility] 08-16-2021 Note [facility] 08-16-2021 Note HNO ID: [id number] Author: Katt Kelsey DO Service: Hospital Medicine Author Type: Physician Type: Plan of Care Filed: 08/16/2021 12:26 PM Note Text: Spoke with RN that line is a PICC. Katt Kelsey DO 08/16/2021 12:[address] [facility] 08-16-2021 Note [facility] 08-16-2021 Note [facility] 08-15-2021 Note [facility] 08-15-2021 Note [facility] 08-15-2021 Note [facility] 08-14-2021 Note [facility] 08[facility]14-2021 Note [facility] 08-13-2021 Note [facility] 08-13-2021 Note [facility] 08-13-2021 Note [facility] 08-13-2021 Note HNO ID: [id number] Author: Ambar Note Service: ? Author Type: ? Type: Progress Notes Filed: 08/13/2021 3:10 AM Note Text: Epic Scheduled Downtime: 08/13/2021 1:08:47 AM to 08/13/2021 2:53:[address] [facility] 08-12-2021 Note [facility] 08-12-2021 [facility] 08[facility]12-2021 Note [facility] 08-11-2021 Note [facility] 08-11-2021 Note [facility] 08-11-2021 Note [facility] 08[facility]11-2021 Note [facility] 08[facility]11-2021 Note [facility] 08-11-2021 Note [facility] 08-10-2021 Note [facility] 08[facility]10-2021 Note [facility] 08-10-2021 Note [facility] 08-10-2021 Note [facility] 08-09-2021 Note HNO ID: [id number] Author: Shannon Brooks RN Service: ? Author Type: Registered Nurse Type: Nursing Progress Note Filed: 08/09/2021 7:33 PM Note Text: Report called to unit [facility] 08-09-2021 Note [facility] 08-09-2021 Note [facility] 08-09-2021 Note [facility] 08[facility]08-2021 Note [facility] 08[facility]08-2021 Note [facility] 08-08-2021 Note [facility] 08-07-2021 Note [facility] 08[facility]07-2021 Note [facility] 08[facility]07-2021 Note [facility] 08-07-2021 Note [facility] 08-07-2021 Note [facility] 08-06-2021 Note [facility] 08[facility]06-2021 Note [facility] 08[facility]06-2021 Note [facility] 08-05-2021 Note [facility] 08-05-2021 Note [facility] 08-05-2021 Note [facility] 08-04-2021 Note [facility] 08[facility]04-2021 Note [facility] 08-04-2021 Note [facility] 08-03-2021 Note [facility] 08-03-2021 Note [facility] 08-03-2021 Note [facility] 08-02-2021 Note [facility] 08-02-2021 Note [facility] 08-02-2021 Note [facility] 08-01-2021 Note [facility] 08[facility]01-2021 Note [facility] 08[facility]01-2021 Note [facility] 08[facility]01-2021 Note [facility] 07-31-2021 Note [facility] 07-31-2021 Note [facility] 07-30-2021 Note [facility] 07[facility]30-2021 Note [facility] 07[facility]30-2021 [facility] 07-29-2021 [facility] 07-29-2021 [facility] 07[facility]29-2021 [facility] 07-28-2021 Note [facility] 07[facility]28-2021 Note [facility] 07[facility]28-2021 [facility] 07-27-2021 Note [facility] 07[facility]27-2021 Note [facility] 07[facility]27-2021 Note [facility] 07-26-2021 Note [facility] 07-26-2021 Note [facility] 07[facility]26-2021 Note [facility] 07-26-2021 Note [facility] 07-26-2021 Note [facility] 07-25-2021 Note [facility] 07[facility]25-2021 Note [facility] 07-25-2021 Note [facility] 07[facility]25-2021 Note [facility] 07-24-2021 Note [facility] 07[facility]24-2021 Note [facility] 07-24-2021 Note [facility] 07-23-2021 Note [facility] 07[facility]23-2021 Note [facility] 07-23-2021 [facility] 07-23-2021 Note [facility] 07[facility]23-2021 Note [facility] 07-22-2021 Note [facility] 07[facility]22-2021 Note [facility] 07-22-2021 Note [facility] 07[facility]21-2021 Note [facility] 07[facility]21-2021 Note [facility] 07-21-2021 Note [facility] 07-21-2021 History of Past i [...] history of fever, elevated WBC, RP hematoma LANDSCAPE SUPERVISOR shunt tip grew anaerobic gram positive cocci 06/08/2021 PLAN: LANDSCAPE SUPERVISOR shunt tip sent to [facility] main, awaiting cx Continue Meropenem per I.D [...] - following CSF studies; 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 for FINISH PHOTOGRAPHER infection at this time - ID following- Continue antibiotics: Meropenem -CSF leak from EVD site, appreciate NSGY recs> stat repeat CTH on 06/07 d/t concern for CSF leak, cephalematoma, CTH unremarkable -Tolerating TF - SBT WTE - PICC line placed documented as of this encounter (statuses as of 10/17/2021) [facility]03-17-2022 [facility]03-16-2022 [facility]03-16-2022 [facility]03-16-[address] [facility]03-16-2022 [facility] 07-19-2021 [facility]03-15-2022 [facility]03-15-2022 [facility]03-14-2022 [facility]03-14-2022 [facility]03-13-2022 [facility]03[facility]13-2022 [facility]03-12-[address] [facility]03-12-2022 [facility] 07-15-2021 [facility]03-11-2022 [facility]03-10-2022 [facility]03-10-2022 [facility]03[facility]10-2022 [facility]03-09-2022 [facility]03-09-2022 [facility]03-09-[address] [facility]03-09-2022 [facility] 07-12-2021 [facility]03-08-2022 [facility]03-07-2022 [facility]03-07-2022 [facility]03-07-2022 [facility]03[facility]07-2022 [facility]03-06-2022 [facility]03-06-[address] [facility]03-05-2022 [facility] 07-09-2021 [facility]03-05-2022 [facility]03-05-2022 [facility]03-05-2022 NoteHNO ID: [id number] Author: Lizette Valderrama RN Service: Nursing Author Type: Registered Nurse Type: Nursing Progress Note Filed: 07/09/2021 1:41 AM Note Text: Report called to [facility]03-04-2022 NoteHNO ID: [id number] Author: Lizette Valderrama RN Service: Nursing Author Type: Registered Nurse Type: Nursing Progress Note Filed: 07/08/2021 8:57 PM Note Text: [address] back to PACU [address] [place], [place] [address]86403-04-2022 NoteHNO ID: [id number] Author: Sukhi Chery APRN.CNP Service: ? Author Type: Nurse Practitioner Type: Progress Notes Filed: 07/09/2021 6:46 PM Note Text: Connected Care Unit Progress Note Patient Name: Andrew Sifuentes Patient Facility: [facility] Admit Date 06/28/2021 Level of Care: Skilled [...] Dept Phone 07/21/2021 11:00 AM NICOLE LIM [phone] HPI: (Per Dr. Beltran) Andrew Sifuentes is being seen today for fci facility (SNF) admission AND management of weakness, tube feed, infected retroperitoneal infection and seizure. ? This is a 71 year old male who presents from [facility] with primary admitting diagnosis of Seizure, enteral [...] CT brain concerning for hydrocephalus. Tip of LANDSCAPE SUPERVISOR shunt was found to be in [...] slow to respond. Ordered to transfer to [facility] ED for evaluation of neurological and [...] changes in co (more content not included)... [facility]03-04-2022 [facility]03-04-2022 [facility]03-02-2022 NoteHNO ID: [id number] Author: Sukhi Chery APRN.CNP Service: ? Author Type: Nurse Practitioner Type: Progress Notes Filed: 07/09/2021 6:20 PM Note Text: Connected Care Unit Progress Note Patient Name: Andrew Sifuentes Patient Facility: [facility] Admit Date 06/28/2021 Level of Care: Skilled [...] Dept Phone 07/21/2021 11:00 AM NICOLE LIM [phone] HPI: (Per Dr. Beltran) Andrew Sifuentes is being seen today for fci facility (SNF) admission AND management of weakness, tube feed, infected retroperitoneal infection and seizure. ? This is a 71 year old male who presents from [facility] with primary admitting diagnosis of Seizure, enteral [...] CT brain concerning for hydrocephalus. Tip of LANDSCAPE SUPERVISOR shunt was found to be in [...] Pharynx: Oropharynx is clear. (more content not included)...[facility]02-28-2022 NoteHNO ID: [id number] Author: Sukhi Chery APRN.TOP FORMER Service: ? Author Type: Nurse Practitioner Type: Progress Notes Filed: 07/09/2021 6:07 PM Note Text: Connected Care Unit Progress Note Patient Name: Andrew Sifuentes Patient Facility: [facility] Admit Date 06/28/2021 Level of Care: Skilled [...] on furosemide; add metolazone for three days; JEOY wraps ordered (G91.1) Obstructive hydrocephalus (HCC) (Z98.2) History of brain shunt - Dr. Lim with Neurosurgery Following - Focused neuro exams with encounters (A41.9, R65.20) Sepsis with acute organ dysfunction, due to unspecified organism, unspecified type, unspecified whether septic shock present (HCC) - Dr. Mckenzie with ID Following - Continue on Vancomycin; recent trough was 30 but nursing notes it was drawn by apartment maintenance supervisor as vancomycin was being infused; reordered trough - PICC Line Intact - No fevers or chills per patient or staff (R53.81) Debility - Certify therapies - Maintain high falls risk precautions - pt/staff verbalize understanding validated via teach back - Monitor safety awareness Appointments for Next 60 Days Date Time Provider Location Dept Phone 07/21/2021 11:00 AM NICOLE LIM [phone] HPI: (Per Dr. Beltran) Andrew Sifuentes is being seen today for fci facility (SNF) admission AND management of weakness, tube feed, infected retroperitoneal infection and seizure. ? This is a 71 year old male who presents from [facility] with primary admitting diagnosis of Seizure, enteral [...] CT brain concerning for hydrocephalus. Tip of LANDSCAPE SUPERVISOR shunt was found to be in [...] to facility records. OBJECTIVE: Labs/diagnostics: 07/04/2021 Glucose=91 Tf=605 K=3.8 Ys=588 CO2=24 BUN=14 Creatinine=0.5 RGS=495 Ca=9.0 Protein,Total=6.7 Albumin=3.6 HhcThyj=878 AST=15 ALT=21 Bilirubin,Totall=0.5 WBC=10.7 RBC=4.04 Hgb=10.9 Hct=35.3 Ujqegojx=271 VancomycinTr (more content not included)...[facility]02-24-2022 NoteHNO ID: [id number] Author: Sukhi Chery APRN.KIM Service: ? Author Type: Nurse Practitioner Type: Progress Notes Filed: 07/09/2021 5:43 PM Note Text: Connected Care Unit Progress Note Patient Name: Andrew Sifuentes Patient Facility: [facility] Admit Date 06/28/2021 Level of Care: Skilled [...] Phone 07/21/2021 11:00 AM NICOLE LIM [facility] [phone] HPI: (Per Dr. Beltran) Andrew Sifuentes is being seen today for fci facility (SNF) admission AND management of weakness, tube feed, infected retroperitoneal infection and seizure. ? This is a 71 year old male who presents from [facility] with primary admitting diagnosis of Seizure, enteral [...] CT brain concerning for hydrocephalus. Tip of LANDSCAPE SUPERVISOR shunt was found to be in [...] to facility records. OBJECTIVE: Labs/diagnostics: 07/01/2021 Glucose=83 Li=546 K=4.1 Sg=472 CO2=27 BUN=22 Creatinine=0.6 QNL=493 Ca=8.7 WBC=10.8 RBC=3.40 Hgb=9.3 Hct=29.9 Mxvefulo=016 Vital Signs: BP 128/80 Pulse 77 Temp 36.7 ?C (98 ?F) Resp 20 Ht 182.9 cm (6') Wt 113 kg (249 lb 3.2 oz) SpO2 96% BMI 33.80 kg/m? Physical Exam: Physical Exam Vitals reviewed. Constitutional: General: He is not in acute distress. (more content not included)...[facility]02-22-2022 [facility]02-22-2022 [facility]02-21-2022 [facility]02-21-[address] [facility]02-20-2022 [facility] 06-26-2021 [facility]02-19-2022 [facility]02[facility]19-2022 [facility]02-18-2022 [facility]02-18-2022 [facility]02[facility]18-2022 [facility]02-17-2022 [facility]02-17-[address] [facility]02-17-2022 [facility] 06-22-2021 NoteHNO ID: [id number] Author: Xiomy Egnland RN Service: Nursing Author Type: Registered Nurse Type: Nursing Progress Note Filed: 06/22/2021 7:22 PM Note Text: RT contacted as pt has wheezing auscultated and same auditory. For prn Treatment.[facility]02-16-2022 [facility]02-16-2022 [facility]02-16-2022 [facility]02-16-2022 [facility]02[facility]16-2022 [facility]02-15-2022 [facility]02-15-[address] [facility]02-15-2022 [facility] 06[facility]21-2021 [facility]02-14-2022 [facility]02-14-2022 [facility]02-14-2022 [facility]02[facility]14-2022 [facility]02[facility]14-2022 [facility]02-13-2022 [facility]02-13-[address] [facility]02-13-2022 [facility] 06[facility]19-2021 [facility]02-13-2022 [facility]02-12-2022 [facility]02-12-2022 [facility]02-12-2022 [facility]02-12-2022 [facility]02-12-2022 [facility]02-12-[address] [facility]02-12-2022 NoteHNO ID: [id number] Author: Ambar Note Service: ? Author Type: ? Type: Progress Notes Filed: 06/18/2021 3:10 AM Note Text: Epic Scheduled Downtime: 06/18/2021 1:00:00 AM to 06/18/2021 2:27:[facility]02-11-[address] [facility]02-11-2022 [facility] 06[facility]17-2021 [facility]02-11-2022 [facility]02-11-2022 [facility]02-10-2022 [facility]02-10-2022 [facility]02-10-2022 [facility]02[facility]10-2022 [facility]02-10-[address] [facility]02-10-2022 [facility] 06-15-2021 [facility]02-09-2022 NoteHNO ID: [id number] Author: Lamonte Kline DO Service: Neurology ICU Author Type: Resident Type: Plan of Care Filed: 06/15/2021 6:21 PM Note Text: Patient's daughter Melissa updated on plan of care and critical condition, all questions answered.[facility]02-09-2022 [facility]02-09-2022 [facility]02-09-2022 [facility]02-09-2022 [facility]02-09-[address] [facility]02-09-2022 [facility] 06[facility]15-2021 [facility]02-08-2022 [facility]02-08-2022 [facility]02-08-2022 [facility]02-08-2022 [facility]02-07-2022 [facility]02[facility]07-2022 [facility]02-07-[address] [facility]02-07-2022 [facility] 06-12-2021 [facility]02-05-2022 [facility]02[facility]05-2022 [facility]02-04-2022 [facility]02[facility]04-2022 [facility]02-04-[address] [facility]02-04-2022 [facility] 06-09-2021 [facility]02-03-2022 [facility]02-03-2022 [facility]02-03-2022 [facility]02-02-2022 [facility]02-02-2022 NoteHNO ID: [id number] Author: Luis Diaz RN Service: ? Author Type: Registered Nurse Type: Nursing Progress Note Filed: 06/08/2021 9:23 AM Note Text: Patient off the floor to OR at this time.[facility]02-02-2022 [facility]02-02-2022 [facility] 06-08-2021 NoteHNO ID: [id number] Author: Eloise Samuel RN Service: ? Author Type: Registered Nurse Type: Nursing Progress Note Filed: 06/08/2021 12:46 AM Note Text: Dr. Brito notified of changes throughout shift. No new orders at this timeSt. [facility] 06-07-2021 NoteHNO ID: [id number] Author: Eloise Samuel RN Service: ? Author Type: Registered Nurse Type: Nursing Progress Note Filed: 06/07/2021 8:01 PM Note Text: Neuro surg TOP FORMER notified of downward deviation of pupils. No new orders at this time.[facility]02-01-2022 [facility]02-01-2022 [facility]02-01-2022 [facility]02-01-2022 [facility]01-31-2022 [facility]01-31-2022 [facility]01-31-[address] [facility]01-31-2022 [facility] 06-05-2021 [facility]01-30-2022 [facility]01-30-2022 [facility]01-29-2022 [facility]01-29-2022 NoteHNO ID: [id number] Author: Jermaine Miller PA-C Service: Neurosurgery Author Type: Physician Rn Lpn Cna Type: Plan of Care Filed: 06/04/2021 1:59 PM Note Text: Discussed with Dr. Charles CT brain results. At this time, continue with EVD at 5 [facility]01-29-2022 [facility] 06-04-2021 [facility]01-28-2022 [facility]01-28-2022 NoteHNO ID: [id number] Author: Mauricio Frank DO Service: Neurology ICU Author Type: Physician Type: Plan of Care Filed: 06/03/2021 2:38 PM Note Text: I spoke with Melissa and updated her over the phone. Mauricio Frank, [facility]01-28-2022 [facility]01-28-2022 [facility]01-27-2022 [facility] [facility]01[facility] [facility]01-26-2022 [facility] 06-01-2021 [facility]01-26-2022 [facility]01[facility]26-2022 [facility]01-26-2022 [facility]01-25-2022 [facility]01-25-2022 [facility]01-25-2022 [facility]01-[facility]-[address] [facility]01-25-2022 [facility] 05-31-2021 [facility] Diagnosis Leg swelling- Primary Swelling of limb Acute deep vein thrombosis (DVT) of proximal vein of lower extremity, unspecified laterality (HCC) DVT, lower extremity, recurrent, unspecified laterality (HCC) Moderate malnutrition (HCC) Malnutrition of moderate degree History of seizures Personal history of other disorders of nervous system and sense organs documented in this encounter [facility] Work Phone: Evaluation noteNo assessment information available [facility] Work Phone: Evaluation note* Diagnosis Other fatigue- Primary documented in this encounter [facility] Work Phone: Evaluation note* Diagnosis Heel ulceration, left, with unspecified severity (HCC)- Primary documented in this encounter [facility] Work Phone: Evaluation note* Diagnosis Fall, initial encounter- Primary Anticoagulated Encounter for long-term (current) use of anticoagulants documented in this encounter [facility] Work Phone: Evaluation note* Diagnosis Left flank pain- Primary Abdominal pain, unspecified site Calculus of ureter Disease of prostate Unspecified disorder of prostate BPH with urinary obstruction Hypertrophy of prostate with urinary obstruction and other lower urinary tract symptoms (LUTS) documented in this encounter [facility] ZdorovioEvaluation note* Diagnosis Left flank pain Abdominal pain, unspecified site Calculus of ureter documented in this encounter [facility] ZdorovioEvaluation note* Diagnosis Left flank pain- Primary Abdominal pain, unspecified site BPH with urinary obstruction Hypertrophy of prostate with urinary obstruction and other lower urinary tract symptoms (LUTS) History of kidney stones documented in this encounter [facility] HealthInstructions* Name Dates Details Instructions not documented [id number] Work Phone: Instructions* Name Dates Details Instructions not documented [id number] [place] Work Phone: Reason for referral (narrative)No [facility] for [facility] Work Phone: Advance Directives No Advanced Directives Records FoundDocuments on File Type Date Recorded Patient Cell Cleaner Expl anation Advance Directives and Living Will Power of Motorcycle Subassembler Documents on File Type Date Recorded Patient Cell Cleaner Expl anation Advance Directive(s) 06/02/2021 2:45 PM [...] Maker Relationship: 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 Adult Children (pharmacy services representative) Documents on File Type Date Recorded Patient Cell Cleaner Expl anation ACP-Advance Directive ACP-Power of Motorcycle Subassembler Latest Code Status on File Code Status Date Activated Date Inactivated Comments Full Code 10/21/2021 4:09 AM Healthcare Agents on File Name Relationship Healthcare Agent Relationshi p Communication Melissakb Dengyer Child Primary Decision Maker deann Gurpreet Child Secondary Decision Maker Documents on File Type Date Recorded Patient Cell Cleaner Expl anation ACP-Advance Directive ACP-Power of Motorcycle Subassembler ACP-Do Not Resuscitate 11/01/2021 7:03 AM Latest Code Status on File Code Status Date Activated Date Inactivated Comments Full Code 10/21/2021 4:09 AM 10/29/2021 7:25 PM Healthcare Agents on File Name Relationship Healthcare Agent Relationshi p Communication Melissakb Dengyer Child Primary Decision Maker deann Gurpreet Child Secondary Decision Maker Documents on File Type Date Recorded Patient Cell Cleaner Expl anation ACP-Do Not Resuscitate 11/03/2021 10:15 AM ACP-Do Not Resuscitate 11/01/2021 7:03 AM Healthcare Agents on File Name Relationship Healthcare Agent Relationshi p Communication Melissa Gurpreet Child Primary Decision Maker deann Gurpreet Child Secondary Decision Maker Documents on File Type Date Recorded Patient Cell Cleaner Expl anation ACP-Do Not Resuscitate 11/03/2021 10:15 [...] Documents on File Type Date Recorded Patient Cell Cleaner Expl anation DNR (Do Not Resuscitate) 10/31/2021 DNR (Do Not Resuscitate) 10/21/2021 Documents on File Type Date Recorded Patient Cell Cleaner Expl anation DNR (Do Not Resuscitate) 10/31/2021 [...] WORK LABWORK Chief Complaint LAB WORK LABWORK SNF LAB WORK SNF LABWORK Chief Complaint LAB WORK LABWORK SNF LAB WORK SNF LABWORK LABWORK LABWORK SNF LAB WORK SNF LABWORK SNF LAB WORK LABWORK SNF LAB WORK LABWORK SNF LABWORK Chief Complaint LAB WORK LABWORK SNF LAB WORK SNF LABWORK LABWORK LABWORK SNF LAB WORK SNF LABWORK SNF LAB WORK LABWORK SNF LAB WORK LABWORK SNF LABWORK SNF LABWORK LABWORK Chief Complaint LAB WORK LABWORK SNF LAB WORK SNF LABWORK LABWORK LABWORK SNF LAB WORK SNF LABWORK SNF LAB WORK LABWORK SNF LAB WORK LABWORK SNF LABWORK SNF LABWORK LABWORK SNF LAB WORK Chief Complaint LABWORK SNF LAB WORK SNF LABWORK LABWORK LABWORK SNF LAB WORK SNF LABWORK SNF LAB WORK LABWORK SNF LAB WORK LABWORK SNF LABWORK SNF LABWORK LABWORK LABWORK SNF LAB WORK Chief Complaint LABWORK SNF LAB WORK SNF LABWORK LABWORK LABWORK SNF LAB WORK SNF LABWORK SNF LAB WORK LABWORK SNF LAB WORK LABWORK SNF LABWORK SNF LABWORK LABWORK LABWORK SNF LAB WORK LABWORK SNF LABWORK SNF LAB WORK SNF LABWORK Chief Complaint SNF LAB WOR K SNF LABWORK LABWORK LABWORK SNF LAB WORK SNF LABWORK SNF LAB WORK LABWORK SNF LAB WORK LABWORK SNF LABWORK SNF LABWORK LABWORK LABWORK SNF LAB WORK LABWORK SNF LABWORK SNF LAB WORK SNF LABWORK SNF LAB WORK Chief Complaint SNF LABWORK LABWORK LABWORK SNF LAB WORK SNF LABWORK SNF LAB WORK LABWORK SNF LAB WORK LABWORK SNF LABWORK SNF LABWORK LABWORK LABWORK SNF LAB WORK LABWORK SNF LABWORK SNF LAB WORK SNF LABWORK LABWORK SNF LAB WORK Chief Complaint SNF LAB WOR K SNF LABWORK SNF LAB WORK LABWORK SNF LAB WORK LABWORK SNF LABWORK SNF LABWORK LABWORK LABWORK SNF LAB WORK LABWORK SNF LABWORK SNF LAB WORK SNF LABWORK LABWORK LABWORK SNF LAB WORK SNF PATIENT SNF LABWORK SNF LABWORK Chief Complaint LABWORK SNF LAB WORK LABWORK SNF LABWORK SNF LABWORK LABWORK LABWORK SNF LAB WORK LABWORK SNF LABWORK SNF LAB WORK SNF LABWORK LABWORK LABWORK SNF LAB WORK SNF PATIENT SNF LABWORK SNF LABWORK SNF LAB WORK Chief Complaint LABWORK SNF LABWORK SNF LABWORK LABWORK LABWORK SNF LAB WORK LABWORK SNF LABWORK SNF LAB WORK SNF LABWORK LABWORK LABWORK SNF LAB WORK SNF PATIENT SNF LABWORK SNF LABWORK SNF LAB WORK SNF LAB WORK SNF LAB WORK Chief Complaint LABWORK LABWORK SNF LAB WORK SNF PATIENT SNF LABWORK SNF LABWORK SNF LAB WORK SNF LAB WORK SNF LAB WORK SNF LABWORK SNF LABWORK LABWORK SNF LAB WORK LABWORK Chief Complaint SNF LAB WOR K SNF PATIENT SNF LABWORK SNF LABWORK SNF LAB WORK SNF LAB WORK SNF LAB WORK SNF LABWORK SNF LABWORK LABWORK SNF LAB WORK LABWORK SNF LABWORK Chief Complaint SNF PATIENT SNF LABWORK SNF LABWORK SNF LAB WORK SNF LAB WORK SNF LAB WORK SNF LABWORK SNF LABWORK LABWORK SNF LAB WORK LABWORK SNF LABWORK SNF LABWORK Chief Complaint SNF LABWORK SNF LAB WORK SNF LAB WORK SNF LAB WORK SNF LABWORK SNF LABWORK LABWORK SNF LAB WORK LABWORK SNF LABWORK SNF LABWORK SNF LABWORK Chief Complaint SNF LABWORK SNF LAB WORK SNF LAB WORK SNF LAB WORK SNF LABWORK SNF LABWORK LABWORK SNF LAB WORK LABWORK SNF LABWORK SNF LABWORK SNF LABWORK SNF LABWORK Chief Complaint SNF LABWORK LABWORK SNF LAB WORK LABWORK SNF LABWORK SNF LABWORK SNF LABWORK SNF LABWORK SNF LABWORK LABWORK SNF LABWORK Chief Complaint LABWORK SNF LAB WORK LABWORK SNF LABWORK SNF LABWORK SNF LABWORK SNF LABWORK SNF LABWORK LABWORK LABWORK SNF LABWORK SNF LAB WORK SNF LABWORK SNF LAB WORK Chief Complaint LABWORK SNF LAB WORK LABWORK SNF LABWORK SNF LABWORK SNF LABWORK SNF LABWORK SNF LABWORK LABWORK LABWORK SNF LABWORK SNF LAB WORK SNF LABWORK SNF LAB WORK SNF LABWORK Chief Complaint LABWORK SNF LAB WORK LABWORK SNF LABWORK SNF LABWORK SNF LABWORK SNF LABWORK SNF LABWORK LABWORK LABWORK SNF LABWORK SNF LAB WORK SNF LABWORK SNF LAB WORK SNF LABWORK LABWORK Chief Complaint SNF LABWORK SNF LABWORK SNF LABWORK SNF LABWORK SNF LABWORK LABWORK LABWORK SNF LABWORK SNF LAB WORK SNF LABWORK SNF LAB WORK SNF LABWORK LABWORK SNF LABWORK Chief Complaint SNF LABWORK SNF LABWORK SNF LABWORK SNF LABWORK SNF LABWORK LABWORK LABWORK SNF LABWORK SNF LAB WORK SNF LABWORK SNF LAB WORK SNF LABWORK LABWORK SNF LABWORK LABWORK Chief Complaint SNF LABWORK LABWORK LABWORK SNF LABWORK SNF LAB WORK SNF LABWORK SNF LAB WORK SNF LABWORK LABWORK SNF LABWORK LABWORK SNF LAB WORK SNF LAB WORK SNF LABWORK Chief Complaint LABWORK SNF LABWORK LABWORK SNF LAB WORK SNF LAB WORK SNF LABWORK SNF LABWORK SNF LAB WORK SNF LAB WORK SNF LAB WORK LABWORK SNF LABWORK Chief Complaint SNF LAB WOR K SNF LAB WORK SNF LABWORK SNF LABWORK SNF LAB WORK SNF LAB WORK SNF LAB WORK LABWORK SNF LABWORK LABWORK SNF LAB WORK SNF LAB WORK Chief Complaint SNF LAB WOR K SNF LABWORK SNF LABWORK SNF LAB WORK SNF LAB WORK SNF LAB WORK LABWORK SNF LABWORK LABWORK SNF LAB WORK SNF LAB WORK Chief Complaint SNF LABWORK SNF LABWORK SNF LAB WORK SNF LAB WORK SNF LAB WORK LABWORK SNF LABWORK LABWORK SNF LAB WORK SNF LAB WORK SNF LABWORK LABWORK LABWORK Chief Complaint SNF LAB WOR K SNF LAB WORK SNF LAB WORK LABWORK SNF LABWORK LABWORK SNF LAB WORK SNF LAB WORK SNF LABWORK LABWORK LABWORK LABWORK LABWORK LABWORK Chief Complaint SNF LAB WOR K LABWORK SNF LABWORK LABWORK SNF LAB WORK SNF LAB WORK SNF LABWORK LABWORK LABWORK LABWORK LABWORK SNF LABWORK SNF LAB WORK LABWORK SNF LAB WORK SNF LAB WORK Chief Complaint SNF LAB WOR K LABWORK SNF LABWORK LABWORK SNF LAB WORK SNF LAB WORK SNF LABWORK LABWORK LABWORK LABWORK LABWORK SNF LABWORK SNF LAB WORK LABWORK SNF LAB WORK SNF LAB WORK SNF LABWORK Chief Complaint SNF LAB WOR K SNF LAB WORK SNF LABWORK LABWORK LABWORK LABWORK LABWORK SNF LABWORK SNF LAB WORK LABWORK SNF LAB WORK SNF LAB WORK SNF LABWORK NUSING HOME LAB WORK Chief Complaint SNF LAB WOR K SNF LABWORK LABWORK LABWORK LABWORK LABWORK SNF LABWORK SNF LAB WORK LABWORK SNF LAB WORK SNF LAB WORK SNF LABWORK NUSING HOME LAB WORK LABWORK Chief Complaint SNF LAB WOR K SNF LABWORK LABWORK LABWORK LABWORK LABWORK SNF LABWORK SNF LAB WORK LABWORK SNF LAB WORK SNF LAB WORK SNF LABWORK NUSING HOME LAB WORK SNF LABWORK LABWORK Chief Complaint LABWORK SNF LAB WORK SNF LAB WORK SNF LABWORK NUSING HOME LAB WORK SNF LABWORK LABWORK SNF LABWORK SNF LAB WORK LABWORK LABWORK Chief Complaint NUSING HOME LAB WORK SNF LABWORK LABWORK SNF LABWORK SNF LAB WORK LABWORK SNF LAB WORK LABWORK LABWORK Chief Complaint NUSING HOME LAB WORK SNF LABWORK LABWORK SNF LABWORK SNF LAB WORK LABWORK SNF LAB WORK LABWORK SNF LAB WORK LABWORK Chief Complaint SNF LABWORK LABWORK SNF LABWORK SNF LAB WORK LABWORK SNF LAB WORK LABWORK SNF LAB WORK LABWORK LABWORK Chief Complaint SNF LABWORK LABWORK SNF LABWORK SNF LAB WORK LABWORK SNF LAB WORK LABWORK SNF LAB WORK LABWORK LABWORK LABWORK Chief Complaint SNF LABWORK LABWORK SNF LABWORK SNF LAB WORK LABWORK SNF LAB WORK LABWORK SNF LAB WORK LABWORK LABWORK LABWORK LABWORK Chief Complaint SNF LABWORK LABWORK SNF LABWORK SNF LAB WORK LABWORK SNF LAB WORK LABWORK SNF LAB WORK LABWORK LABWORK SNF LAB WORK LABWORK LABWORK LABWORK Chief Complaint LABWORK SNF LABWORK SNF LAB WORK LABWORK SNF LAB WORK LABWORK SNF LAB WORK LABWORK LABWORK SNF LAB WORK LABWORK LABWORK LABWORK LABWORK LABWORK LABWORK LABWORK Chief Complaint SNF LABWORK SNF LAB WORK LABWORK SNF LAB WORK LABWORK SNF LAB WORK LABWORK LABWORK SNF LAB WORK LABWORK LABWORK LABWORK LABWORK LABWORK LABWORK LABWORK LABWORK Chief Complaint LABWORK SNF LAB WORK LABWORK SNF LAB WORK LABWORK LABWORK SNF LAB WORK LABWORK LABWORK LABWORK LABWORK LABWORK LABWORK LABWORK LABWORK LABWORK Chief Complaint SNF LABWORK LABWORK LABWORK LABWORK LABWORK SNF LABWORK SNF LAB WORK LABWORK SNF LAB WORK SNF LAB WORK SNF LABWORK NUSING HOME LAB WORK SNF LABWORK LABWORK SNF LABWORK SNF LAB WORK Chief Complaint Admit Date SNF LAB WORK March 13, 2024 5:00am LABWORK March 14, 2024 5 :00am SNF LAB WORK March 17 5:00am SNF LAB WORK March 18 5:00am SNF LAB WORK March 19 4:00am SNF LAB WORK March 20 5:00am SNF LAB WORK March 24 5:00am SNF LAB WORK March 27 5:00am LABWORK March 31, 2024 5:00am SNF LAB WORK April 04 5:00am LABWORK April 07, 2024 5 :00am SNF LAB WORK April 10, 2024 5:00am SNF LAB WORK April 14, 2024 5:00am SNF LAB WORK April 17 5:00am LABWORK April 21, 2024 5:00am SNF LAB WORK April 24 4:00am LABWORK April 28, 2024 5:00am SNF LAB WORK May 01 4:00am SNF LAB WORK May 05 4 5:00am SNF LAB WORK May 08, 2024 5:00am SNF LAB WORK May 09, 2024 4:00am LABWORK May 12, 2024 5: 00am SNF LAB WORK May 15, 2024 5:00am SNF LAB WORK May 19, 2024 4:00am SNF LAB WORK May 20, 2024 5:00am SNF LAB WORK May 22, 2024 5:00am LABWORK May 26, 2024 5 :00am SNF LAB WORK May 29, 2024 5:00am SNF LAB WORK June 02, 2024 5:00am SNF LAB WORK June 05, 2024 5:00am LABWORK June 09, 2024 5 :00am SNF LAB WORK June 12, 2024 5:00am SNF LAB WORK June 16 5:00am SNF LAB WORK June 19 5:00am LABWORK June 23, 2024 5:00am SNF LAB WORK June 26 5:00am SNF LAB WORK June 30 5:00am Chief Complaint Admit Date LABWORK April 07, 2024 5 :00am SNF LAB WORK April 10, 2024 5:00am SNF LAB WORK April 14, 2024 5:00am SNF LAB WORK April 17 5:00am LABWORK April 21, 2024 5:00am SNF LAB WORK April 24 4:00am LABWORK April 28, 2024 5:00am SNF LAB WORK May 01 4:00am SNF LAB WORK May 05 5:00am SNF LAB WORK May 08, 2024 5:00am SNF LAB WORK May 09, 2024 4:00am LABWORK May 12, 2024 5: 00am SNF LAB WORK May 15, 2024 5:00am SNF LAB WORK May 19, 2024 4:00am SNF LAB WORK May 20, 2024 5:00am SNF LAB WORK May 22, 2024 5:00am LABWORK May 26, 2024 5 :00am SNF LAB WORK May 29, 2024 5:00am SNF LAB WORK June 02, 2024 5:00am SNF LAB WORK June 05, 2024 5:00am LABWORK June 09, 2024 5 :00am SNF LAB WORK June 12, 2024 5:00am SNF LAB WORK June 16 5:00am SNF LAB WORK June 19 5:00am LABWORK June 23, 2024 5:00am SNF LAB WORK June 26 5:00am SNF LAB WORK June 30 5:00am SNF LAB WORK February 27th, 202 5 5:00am SNF LAB WORK July 07, 2024 4: 00am LABWORK July 11, 2024 5:00 am LABWORK July 14, 2024 5:0 0am SNF LAB WORK July 17, 2024 4 :00am SNF LAB WORK July 24, 2024 4 :00am Chief Complaint Admit Date SNF LAB WORK April 14, 2024 5:00am SNF LAB WORK April 17 5:00am LABWORK April 21, 2024 5:00am SNF LAB WORK April 24 4:00am LABWORK April 28, 2024 5:00am SNF LAB WORK May 01 4:00am SNF LAB WORK May 05 5:00am SNF LAB WORK May 08, 2024 5:00am SNF LAB WORK May 09, 2024 4:00am LABWORK May 12, 2024 5: 00am SNF LAB WORK May 15, 2024 5:00am SNF LAB WORK May 19, 2024 4:00am SNF LAB WORK May 20, 2024 5:00am SNF LAB WORK May 22, 2024 5:00am LABWORK May 26, 2024 5 :00am SNF LAB WORK May 29, 2024 5:00am SNF LAB WORK June 02, 2024 5:00am SNF LAB WORK June 05, 2024 5:00am LABWORK June 09, 2024 5 :00am SNF LAB WORK June 12, 2024 5:00am SNF LAB WORK June 16 5:00am SNF LAB WORK June 19 5:00am LABWORK June 23, 2024 5:00am SNF LAB WORK June 26 5:00am SNF LAB WORK June 30 5:00am SNF LAB WORK July 03 5:00am SNF LAB WORK July 07, 2024 4: 00am LABWORK July 11, 2024 5:00 am LABWORK July 14, 2024 5:0 0am SNF LAB WORK July 17, 2024 4 :00am SNF LAB WORK July 24, 2024 4 :00am LABWORK July 25, 2024 5:0 0am Chief Complaint Admit Date SNF LAB WORK April 14, 2024 5:00am SNF LAB WORK April 17 5:00am LABWORK April 21, 2024 5:00am SNF LAB WORK April 24 4:00am LABWORK April 28, 2024 5:00am SNF LAB WORK May 01 4:00am SNF LAB WORK May 05 5:00am SNF LAB WORK May 08, 2024 5:00am SNF LAB WORK May 09, 2024 4:00am LABWORK May 12, 2024 5: 00am SNF LAB WORK May 15, 2024 5:00am SNF LAB WORK May 19, 2024 4:00am SNF LAB WORK May 20, 2024 5:00am SNF LAB WORK May 22, 2024 5:00am LABWORK May 26, 2024 5 :00am SNF LAB WORK May 29, 2024 5:00am SNF LAB WORK June 02, 2024 5:00am SNF LAB WORK June 05, 2024 5:00am LABWORK June 09, 2024 5 :00am SNF LAB WORK June 12, 2024 5:00am SNF LAB WORK June 16 5:00am SNF LAB WORK June 19 5:00am LABWORK June 23, 2024 5:00am SNF LAB WORK June 26 5:00am SNF LAB WORK June 30 5:00am SNF LAB WORK July 03 5:00am SNF LAB WORK July 07, 2024 4: 00am LABWORK July 11, 2024 5:00 am LABWORK July 14, 2024 5:0 0am SNF LAB WORK July 17, 2024 4 :00am SNF LAB WORK July 21, 2024 5 :00am SNF LAB WORK July 24, 2024 4 :00am LABWORK July 25, 2024 5:0 0am SNF LAB WORK July 31, 2024 4 :00am Chief Complaint Admit Date SNF LAB WORK April 17 5:00am LABWORK April 21, 2024 5:00am SNF LAB WORK April 24 4:00am LABWORK April 28, 2024 5:00am SNF LAB WORK May 01 4:00am SNF LAB WORK May 05 5:00am SNF LAB WORK May 08, 2024 5:00am SNF LAB WORK May 09, 2024 4:00am LABWORK May 12, 2024 5: 00am SNF LAB WORK May 15, 2024 5:00am SNF LAB WORK May 19, 2024 4:00am SNF LAB WORK May 20, 2024 5:00am SNF LAB WORK May 22, 2024 5:00am LABWORK May 26, 2024 5 :00am SNF LAB WORK May 29, 2024 5:00am SNF LAB WORK June 02, 2024 5:00am SNF LAB WORK June 05, 2024 5:00am LABWORK June 09, 2024 5 :00am SNF LAB WORK June 12, 2024 5:00am SNF LAB WORK June 16 5:00am SNF LAB WORK June 19 5:00am LABWORK June 23, 2024 5:00am SNF LAB WORK June 26 5:00am SNF LAB WORK June 30 5:00am SNF LAB WORK July 03 5:00am SNF LAB WORK July 07, 2024 4: 00am LABWORK July 11, 2024 5:00 am LABWORK July 14, 2024 5:0 0am SNF LAB WORK July 17, 2024 4 :00am SNF LAB WORK July 21, 2024 5 :00am SNF LAB WORK July 24, 2024 4 :00am LABWORK July 25, 2024 5:0 0am SNF LAB WORK July 28, 2024 5 :00am SNF LAB WORK July 31, 2024 4 :00am Chief Complaint Admit Date SNF LAB WORK April 24 4:00am LABWORK April 28, 2024 5:00am SNF LAB WORK May 01 4:00am SNF LAB WORK May 05 5:00am SNF LAB WORK May 08, 2024 5:00am SNF LAB WORK May 09, 2024 4:00am LABWORK May 12, 2024 5: 00am SNF LAB WORK May 15, 2024 5:00am SNF LAB WORK May 19, 2024 4:00am SNF LAB WORK May 20, 2024 5:00am SNF LAB WORK May 22, 2024 5:00am LABWORK May 26, 2024 5 :00am SNF LAB WORK May 29, 2024 5:00am SNF LAB WORK June 02, 2024 5:00am SNF LAB WORK June 05, 2024 5:00am LABWORK June 09, 2024 5 :00am SNF LAB WORK June 12, 2024 5:00am SNF LAB WORK June 16 5:00am SNF LAB WORK June 19 5:00am LABWORK June 23, 2024 5:00am SNF LAB WORK June 26 5:00am SNF LAB WORK June 30 5:00am SNF LAB WORK July 03 5:00am SNF LAB WORK July 07, 2024 4: 00am LABWORK July 11, 2024 5:00 am LABWORK July 14, 2024 5:0 0am SNF LAB WORK July 17, 2024 4 :00am SNF LAB WORK July 21, 2024 5 :00am SNF LAB WORK July 24, 2024 4 :00am LABWORK July 25, 2024 5:0 0am SNF LAB WORK July 28, 2024 5 :00am SNF LAB WORK July 31, 2024 4 :00am LABWORK August 04, 2024 5:0 0am Chief Complaint Admit Date SNF LAB WORK May 15, 2024 5:00am SNF LAB WORK May 19, 2024 4:00am SNF LAB WORK May 20, 2024 5:00am SNF LAB WORK May 22, 2024 5:00am LABWORK May 26, 2024 5 :00am SNF LAB WORK May 29, 2024 5:00am SNF LAB WORK June 02, 2024 5:00am SNF LAB WORK June 05, 2024 5:00am LABWORK June 09, 2024 5 :00am SNF LAB WORK June 12, 2024 5:00am SNF LAB WORK June 16 5:00am SNF LAB WORK June 19 5:00am LABWORK June 23, 2024 5:00am SNF LAB WORK June 26 5:00am SNF LAB WORK June 30 5:00am SNF LAB WORK July 03 5:00am SNF LAB WORK July 07, 2024 4: 00am LABWORK July 11, 2024 5:00 am LABWORK July 14, 2024 5:0 0am SNF LAB WORK July 17, 2024 4 :00am SNF LAB WORK July 21, 2024 5 :00am SNF LAB WORK July 24, 2024 4 :00am LABWORK July 25, 2024 5:0 0am SNF LAB WORK July 28, 2024 5 :00am SNF LAB WORK July 31, 2024 4 :00am LABWORK August 04, 2024 5:0 0am LABWORK August 07, 2024 5:00 am SNF LAB WORK August 11, 2024 5: 00am SNF LAB WORK August 14, 2024 5 :00am SNF LAB WORK August 18, 2024 5 :00am Chief Complaint Admit Date SNF LAB WORK May 20, 2024 5:00am SNF LAB WORK May 22, 2024 5:00am LABWORK May 26, 2024 5 :00am SNF LAB WORK May 29, 2024 5:00am SNF LAB WORK June 02, 2024 5:00am SNF LAB WORK June 05, 2024 5:00am LABWORK June 09, 2024 5 :00am SNF LAB WORK June 12, 2024 5:00am SNF LAB WORK June 16 5:00am SNF LAB WORK June 19 5:00am LABWORK June 23, 2024 5:00am SNF LAB WORK June 26 5:00am SNF LAB WORK June 30 5:00am SNF LAB WORK July 03 5:00am SNF LAB WORK July 07, 2024 4: 00am LABWORK July 11, 2024 5:00 am LABWORK July 14, 2024 5:0 0am SNF LAB WORK July 17, 2024 4 :00am SNF LAB WORK July 21, 2024 5 :00am SNF LAB WORK July 24, 2024 4 :00am LABWORK July 25, 2024 5:0 0am SNF LAB WORK July 28, 2024 5 :00am SNF LAB WORK July 31, 2024 4 :00am LABWORK August 04, 2024 5:0 0am LABWORK August 07, 2024 5:00 am SNF LAB WORK August 11, 2024 5: 00am SNF LAB WORK August 14, 2024 5 :00am SNF LAB WORK August 18, 2024 5 :00am LABWORK August 28, 2024 5:0 0am Chief Complaint Admit Date SNF LAB WORK May 22, 2024 5:00am LABWORK May 26, 2024 5 :00am SNF LAB WORK May 29, 2024 5:00am SNF LAB WORK June 02, 2024 5:00am SNF LAB WORK June 05, 2024 5:00am LABWORK June 09, 2024 5 :00am SNF LAB WORK June 12, 2024 5:00am SNF LAB WORK June 16 5:00am SNF LAB WORK June 19 5:00am LABWORK June 23, 2024 5:00am SNF LAB WORK June 26 5:00am SNF LAB WORK June 30 5:00am SNF LAB WORK July 03 5:00am SNF LAB WORK July 07, 2024 4: 00am LABWORK July 11, 2024 5:00 am LABWORK July 14, 2024 5:0 0am SNF LAB WORK July 17, 2024 4 :00am SNF LAB WORK July 21, 2024 5 :00am SNF LAB WORK July 24, 2024 4 :00am LABWORK July 25, 2024 5:0 0am SNF LAB WORK July 28, 2024 5 :00am SNF LAB WORK July 31, 2024 4 :00am LABWORK August 04, 2024 5:0 0am LABWORK August 07, 2024 5:00 am SNF LAB WORK August 11, 2024 5: 00am SNF LAB WORK August 14, 2024 5 :00am SNF LAB WORK August 18, 2024 5 :00am SNF LAB WORK August 21, 2024 5 :00am LABWORK August 28, 2024 5:0 0am LABWORK September 01, 2024 5:0 0am Chief Complaint Admit Date SNF LAB WORK June 05, 2024 5:00am LABWORK June 09, 2024 5 :00am SNF LAB WORK June 12, 2024 5:00am SNF LAB WORK June 16 5:00am SNF LAB WORK June 19 5:00am LABWORK June 23, 2024 5:00am SNF LAB WORK June 26 5:00am SNF LAB WORK June 30 5:00am SNF LAB WORK July 03 5:00am SNF LAB WORK July 07, 2024 4: 00am LABWORK July 11, 2024 5:00 am LABWORK July 14, 2024 5:0 0am SNF LAB WORK July 17, 2024 4 :00am SNF LAB WORK July 21, 2024 5 :00am SNF LAB WORK July 24, 2024 4 :00am LABWORK July 25, 2024 5:0 0am SNF LAB WORK July 28, 2024 5 :00am SNF LAB WORK July 31, 2024 4 :00am LABWORK August 04, 2024 5:0 0am LABWORK August 07, 2024 5:00 am SNF LAB WORK August 11, 2024 5: 00am SNF LAB WORK August 14, 2024 5 :00am SNF LAB WORK August 18, 2024 5 :00am SNF LAB WORK August 21, 2024 5 :00am SNF LAB WORK August 25, 2024 4 :00am LABWORK August 28, 2024 5:0 0am LABWORK September 01, 2024 5:0 0am LABWORK September 04, 2024 5:00am Chief Complaint Admit Date SNF LAB WORK June 05, 2024 5:00am LABWORK June 09, 2024 5 :00am SNF LAB WORK June 12, 2024 5:00am SNF LAB WORK June 16 5:00am SNF LAB WORK June 19 5:00am LABWORK June 23, 2024 5:00am SNF LAB WORK June 26 5:00am SNF LAB WORK June 30 5:00am SNF LAB WORK July 03 5:00am SNF LAB WORK July 07, 2024 4: 00am LABWORK July 11, 2024 5:00 am LABWORK July 14, 2024 5:0 0am SNF LAB WORK July 17, 2024 4 :00am SNF LAB WORK July 21, 2024 5 :00am SNF LAB WORK July 24, 2024 4 :00am LABWORK July 25, 2024 5:0 0am SNF LAB WORK July 28, 2024 5 :00am SNF LAB WORK July 31, 2024 4 :00am LABWORK August 04, 2024 5:0 0am LABWORK August 07, 2024 5:00 am SNF LAB WORK August 11, 2024 5: 00am SNF LAB WORK August 14, 2024 5 :00am SNF LAB WORK August 18, 2024 5 :00am SNF LAB WORK August 21, 2024 5 :00am SNF LAB WORK August 25, 2024 4 :00am LABWORK August 28, 2024 5:0 0am LABWORK September 01, 2024 5:0 0am LABWORK September 04, 2024 5:00am LABWORK September 15, 2024 5:00a m Chief Complaint Admit Date SNF LAB WORK June 19 5:00am LABWORK June 23, 2024 5:00am SNF LAB WORK June 26 5:00am SNF LAB WORK June 30 5:00am SNF LAB WORK July 03 5:00am SNF LAB WORK July 07, 2024 4: 00am LABWORK July 11, 2024 5:00 am LABWORK July 14, 2024 5:0 0am [facility] WORK July 17, 2024 4 :00am [facility] WORK July 21, 2024 5 :00am [facility] LAB WORK July 24, 2024 4 :00am LABWORK July 25, 2024 5:0 0am [facility] LAB WORK July 28, 2024 5 :00am [facility] LAB WORK July 31, 2024 4 :00am LABWORK August 04, 2024 5:0 0am LABWORK August 07, 2024 5:00 am SNF LAB WORK August 11, 2024 5: 00am SN[facility] LAB WORK August 14, 2024 5 :00am SNF LAB WORK August 18, 2024 5 :00am SNF LAB WORK August 21, 2024 5 :00am SNF LAB WORK August 25, 2024 4 :00am LABWORK August 28, 2024 5:0 0am LABWORK September 01, 2024 5:0 0am LABWORK September 04, 2024 5:00am SNF LAB WORK September 08, 2024 4:00 am SNF LAB WORK September 11, 2024 5:00 am LABWORK September 15, 2024 5:00a m SNF LAB WORK September 25, 2024 5:0 0am SNF LAB WORK September 30, 2024 4:0 0am Chief Complaint Admit Date SNF LAB WORK June 12, 2024 5:00am [facility] LAB WORK June 16 5:00am SN[facility] LAB WORK June 19 5:00am LABWORK June 23, 2024 5:00am SNF LAB WORK June 26 5:00am SNF LAB WORK June 30 5:00am SNF LAB WORK July 03 5:00am SNF LAB WORK July 07, 2024 4: 00am LABWORK July 11, 2024 5:00 am LABWORK July 14, 2024 5:0 0am SNF LAB WORK July 17, 2024 4 :00am SNF LAB WORK July 21, 2024 5 :00am SNF LAB WORK July 24, 2024 4 :00am LABWORK July 25, 2024 5:0 0am SNF LAB WORK July 28, 2024 5 :00am SNF LAB WORK July 31, 2024 4 :00am LABWORK August 04, 2024 5:0 0am LABWORK August 07, 2024 5:00 am SNF LAB WORK August 11, 2024 5: 00am SNF LAB WORK August 14, 2024 5 :00am SNF LAB WORK August 18, 2024 5 :00am SNF LAB WORK August 21, 2024 5 :00am SNF LAB WORK August 25, 2024 4 :00am LABWORK August 28, 2024 5:0 0am LABWORK September 01, 2024 5:0 0am LABWORK September 04, 2024 5:00am SNF LAB WORK September 08, 2024 4:00 am LABWORK September 15, 2024 5:00a m Chief Complaint Admit Date SNF LAB WORK July 07, 2024 4: 00am LABWORK July 11, 2024 5:00 am LABWORK July 14, 2024 5:0 0am SNF LAB WORK July 17, 2024 4 :00am SNF LAB WORK July 21, 2024 5 :00am SNF LAB WORK July 24, 2024 4 :00am LABWORK July 25, 2024 5:0 0am SNF LAB WORK July 28, 2024 5 :00am SNF LAB WORK July 31, 2024 4 :00am LABWORK August 04, 2024 5:0 0am LABWORK August 07, 2024 5:00 am SNF LAB WORK August 11, 2024 5: 00am SNF LAB WORK August 14, 2024 5 :00am SNF LAB WORK August 18, 2024 5 :00am SNF LAB WORK August 21, 2024 5 :00am SNF LAB WORK August 25, 2024 4 :00am LABWORK August 28, 2024 5:0 0am LABWORK September 01, 2024 5:0 0am LABWORK September 04, 2024 5:00am SNF LAB WORK September 08, 2024 4:00 am SNF LAB WORK September 11, 2024 5:00 am LABWORK September 15, 2024 5:00a m SNF LAB WORK September 18, 2024 5:0 0am SNF LAB WORK September 22, 2024 5:0 0am SNF LAB WORK September 25, 2024 5:0 0am SNF LAB WORK September 30, 2024 4:0 0am SNF LAB WORK October 02, 2024 5:0 0am SNF LAB WORK October 09, 2024 5:0 0am Chief Complaint Admit Date SNF LAB WORK October 09, 2024 5:0 0am LABWORK October 13, 2024 5:00a m SNF LAB WORK October 16, 2024 5: 00am SNF LAB WORK October 20, 2024 4: 00am SNF LAB WORK October 23, 2024 5: 00am SNF LAB WORK October 27, 2024 4: 00am SNF LAB WORK October 30, 2024 6: 35am LABWORK November 03, 2024 5:00 am SNF LAB WORK November 06, 2024 4:0 0am SNF LAB WORK November 10, 2024 4:0 0am SNF LAB WORK November 13, 2024 5: 00am SNF LAB WORK November 17, 2024 5: 00am SNF LAB WORK November 20, 2024 5: 00am SNF LAB WORK November 24, 2024 5: 00am SNF LAB WORK November 27, 2024 5: 00am LABWORK November 28, 2024 5:00 am LABWORK December 01, 2024 5:00 am SNF LAB WORK December 02, 2024 4: 00am SNF LAB WORK December 04, 2024 5: 00am SNF LAB WORK December 08, 2024 5 :00am LABWORK December 11, 2024 6:0 0am SNF LAB WORK December 15, 2024 4:00am SNF LAB WORK December 18, 2024 5:00am SNF LAB WORK December 22, 2024 4:00am LABWORK December 24, 2024 5: 00am SNF LAB WORK December 25, 2024 5:00am SNF LAB WORK December 26, 2024 5:00am LABWORK December 29, 2024 5: 00am SNF LAB WORK January 01, 2025 5:00am SNF LAB WORK January 06 5:00am LABWORK January 08, 2025 5:00am SNF LAB WORK January 12 4:00am SNF LAB WORK January 15 5:00am LABWORK January 19, 2025 5:00am SNF LAB WORK January 26 4:00am Chief Complaint Admit Date LABWORK November 03, 2024 5:00 am SNF LAB WORK November 06, 2024 4:0 0am SNF LAB WORK November 10, 2024 4:0 0am SNF LAB WORK November 13, 2024 5: 00am SNF LAB WORK November 17, 2024 5: 00am SNF LAB WORK November 20, 2024 5: 00am SNF LAB WORK November 24, 2024 5: 00am SNF LAB WORK November 27, 2024 5: 00am LABWORK November 28, 2024 5:00 am LABWORK December 01, 2024 5:00 am SNF LAB WORK December 02, 2024 4: 00am SNF LAB WORK December 04, 2024 5: 00am SNF LAB WORK December 08, 2024 5 :00am LABWORK December 11, 2024 6:0 0am SNF LAB WORK December 15, 2024 4:00am SNF LAB WORK December 18, 2024 5:00am SNF LAB WORK December 22, 2024 4:00am LABWORK December 24, 2024 5: 00am SNF LAB WORK December 25, 2024 5:00am SNF LAB WORK December 26, 2024 5:00am LABWORK December 29, 2024 5: 00am SNF LAB WORK January 01, 2025 5:00am SNF LAB WORK January 06 5:00am LABWORK January 08, 2025 5:00am SNF LAB WORK January 12 4:00am SNF LAB WORK January 15 5:00am LABWORK January 19, 2025 5:00am SNF LAB WORK January 22 5:00am SNF LAB WORK January 26 4:00am SNF LAB WORK January 29 7:30am SNF LAB WORK February 02 4:00am SNF LAB WORK February 05, 2025 5:00am SNF LAB WORK February 16, 2025 4:00am Reason for Referral Specialty Diagnoses / Procedures Referred By Aki kumari Referred To Contact Urology Diagnoses Other fatigue Lanette Munguia DO [address] [place] [address] [facility] [address] [place] [id number] Referral ID Status Reason Start Date Expiration Date V isits Requested Visits Authorized [id number] Open Specialty Services Required 11/01/2021 11/01/2022 1 1 Scheduling Instructions [facility] [place] [address] Specialty Diagnoses / Procedures Referred By Aki kumari Referred To Contact IP Unit Diagnoses Heel ulceration, left, with unspecified severity (HCC) Henry Hidalgo PA [address] [place] [address] [facility] [address] [place] [address] Referral ID Status Reason Start Date Expiration Date V isits Requested Visits Authorized [id number] Open Specialty Services Required 12/22/2021 12/22/2022 1 1 Scheduling Instructions [facility] [address] [place] [address] Comments Please use the parking lot located on [employer] or [employer]. There are handicap parking spots located in a small lot beside the wound care entrance off of [address]. Please be advised there is a small incline from those handicap spots to our main door. Bring photo ID and insurance card to photocopy. Wear loose fitting clothing (to easily access wound). Bring list of medications (or can be sent by office). Check in at Registration for your first visit. Please call us directly with any questions [phone]. We look forward to helping you heal. Specialty Diagnoses / Procedures Referred By Contdesiree t Referred To Contact Radiology Diagnoses Left flank pain Calculus of ureter Procedures CT abdomen pelvis wo IV contrast Rebecca Buck MD [address] [place] [address] Referral ID Status Reason Start Date Expiration Date V isits Requested Visits Authorized [id number] Pending Review 08/13/2023 08/12/2024 1 1 Referral ID Status Reason Start Date Expiration Date Visits Re quested Visits Authorized [id number] Closed 08/17/2023 09/16/2023 1 1 Additional Source Comments Source Comments (unrecognize d section and content) In the event this informatio n is protected by the Federal Confidentiality of Alcohol and Drug Abuse Patient Records regulations: The Federal rules restrict any use of the information to criminally investigate or prosecute any alcohol or drug abuse patient[facility] the event this information is protected by the Federal Confidentiality of Alcohol and Drug Abuse Patient Records regulations: The Federal rules restrict any use of the information to criminally investigate or prosecute any alcohol or drug abuse patient[facility] (unrecognized sect ion and content) No Status Records FoundNo Status Records FoundNo Status Records FoundNo Status Records FoundNo Status Records FoundNo Status Records FoundNo Status Records FoundNo Status Records FoundNo Status Records FoundNo Status Records Found INFORMATION SOURCE (unrecogn ized section and content) DATE CREATED AUTHOR 05/20/2021 [facility] DATE CREATED AUTHOR AUTHOR'S ORGANIZ ATION 06/07/2021 [facility] DATE CREATED AUTHOR AUTHOR'S ORGANIZ ATION 08/02/2021 [facility] DATE CREATED AUTHOR AUTHOR'S ORGANIZ ATION 12/09/2021 [facility] DATE CREATED AUTHOR AUTHOR'S ORGANIZ ATION 12/29/2021 [facility] DATE CREATED AUTHOR AUTHOR'S ORGANIZ ATION 02/04/2022 [facility] DATE CREATED AUTHOR AUTHOR'S ORGANIZ ATION 03/03/2022 [facility] DATE CREATED AUTHOR AUTHOR'S ORGANIZ ATION 09/15/2023 [facility] DATE CREATED AUTHOR AUTHOR'S ORGANIZ ATION 03/18/2025 [facility] Reason for Visit (unrecogniz ed section and content) Reason Comments Missed Appointment Reason Comments Leg Swelling Blood clots Reason Comments Altered Mental Status Pt presents to ED via [facility] for complaint listed. Pt is from [place] [facility]. Pt's LKW was 1000 hours today. Per EMS, pt had a - [place]. Pt denies CP, SOB, and N/V. Pt seems slow to respond, slightly confused at this time. Reason Comments Osteomyelitis Patient from [facility] did xrays on left lower leg and and have concerns for possible osteomyelitis A&Ox2 to self and place, stated year 2022 preside Miss martini Reason Comments Fall Patient had unwitnes sed fall at [facility] landed on butt. Is on thinners, [...] Buck MD [address] [place] [address] Referral ID Status Reason Start Date Expiration Date Visits Re quested Visits Authorized [id number] Closed 08/17/2023 09/16/2023 1 1 Reason Comments [...] July 17, 2024 End: July 17, 2024 aKron NOVAK MD Referring Provider Active [...] Status: Inactive Member Role Status Dates Carlos ONVAK Attending Provider Active Team Status: Inactive Member Role Status Dates Carlos NOVAK Attending Provider, Referring Provi lupillo Active Team Status: Active Member Role Status Dates Carlos NOVAK Attending Provider Active Chip Drier Relationship Specialty Start Date End Date Mateus Burris [address] [place] [address] PCP - General Family Practice 11/12/19 Chip Drier Relationship Specialty [place] [address] [place] [address] PCP - General Family Medicine 09/09/20 Chip Drier Relationship Specialty [place] [address] [place] [address] PCP - General Family Medicine 09/09/20 Chip Drier Relationship Specialty [place] [address] [place] [address] PCP - General Family Medicine 09/09/20 Chip Drier Relationship Specialty Start Date End Date Carlos Cavazos MD [address] [place] [address] PCP - General Internal Medicine 02/20/22 Team [...] Monika Staley MD Primary Care Provider Active Chip Drier Relationship Specialty Start Date End Date Carlos Cavazos [address] [place] [phone] PCP - General 12/21/21 Rebecca Buck MD [address] [place] [address] Surgeon Urology 06/25/23 Team Status: Inactive Member [...] NOVAK Attending Provider, Referring Provi lupillo Active Chip Drier Relationship Specialty Start Date End Date Carlos Cavazos [address] [place] [phone] PCP - General 12/21/21 Rebecca Buck MD [address] [address] Surgeon Urology 06/25/23 Chip Drier Relationship Specialty Start Date End Date Carlos Cavazos [address] [place] [phone] PCP - General 12/21/21 Rebecca Buck MD [address] [address] Surgeon Urology 06/25/23 Chip Drier Relationship Specialty Start Date End Date Carlos Cavazos [address] [place] [phone] PCP - General 12/21/21 Rebecca Buck MD [address] [address] Surgeon Urology 06/25/23 Chip Drier Relationship Specialty Start Date End Date Carlos Cavazos [address] [place] [phone] PCP - General 12/21/21 Rebecca Buck MD [address] [address] Surgeon Urology 06/25/23 Chip Drier Relationship Specialty Start Date End Date Carlos Cavazos [address] [place] [phone] PCP - General 12/21/21 Rebecca Buck MD [address] [address] Surgeon Urology 06/25/23 Chip Drier Relationship Specialty Start Date End Date Carlos Cavazos [address] [place] [phone] PCP - General 12/21/21 Rebecca Buck MD [address] [address] Surgeon Urology 06/25/23 Team Status: Inactive Member Role Status Dates Dr. Monika Staley MD Primary Care Provider Active Start: March 13, 2024 End: March 13, 2024 [facility] Attending Provider Active Start: March [...] March 17, 2024 End: March 17, 2024 [facility] Attending Provider Active Start: March 17, 2024 End: March 17, 2024 Team Status: Inactive Member Role Status Dates Dr. Monika Staley MD Primary Care Provider Active Start: March 18, 2024 End: March 18, 2024 [facility] Attending Provider Active Start: March [...] March 20, 2024 End: March 20, 2024 [facility] Attending Provider Active Start: March [...] March 27, 2024 End: March 27, 2024 [facility] Attending Provider Active Start: March [...] Care Provider Active Start: July 07, 2024 [facility] Attending Provider Active Start: July [...] Active Member Role/Relationship Status Dates Dr. Monika tSaley MD Primary care physician Activ e Team [...] Active Member Role/Relationship Status Dates Dr. Monika Staely MD Primary care physician Activ e Start: [...] Active Member Role/Relationship Status Dates Dr. Monika tSaley MD Primary care physician Activ e Start: [...] Lisa Ashby, AYUSH)[phone] (Stopped - Provider: Lisa sAhby, AYUSH) [phone] (New Bag - Provider: Fabi [...] Oral, ONCE Warfarin, 1 dose, On [facility] 10/29/21 at 1800, Indication of [...] BE BASED ON THE PRIMARY CLINICAL RECORDS. [facility]. provides no warranty or guarantee of the accuracy or completeness of information in this document.
[2025-04-09 09:44] LABS: Prothrombin Time (Protime)PT. 18.6 SECONDS (11.7-14.9)
== END ==
LOC: OLS.SANC 05:00
PROVIDERS: PCP General Practice
DX: R19.7 Diarrhea, unspecified (principal); Z79.01 Long term (current) use of anticoagulants
CPT/HCPCS: 36415; 85610; 87493

== ENCOUNTER → 2025-04-13 05:00 | Outpatient (REF) | payer MEDICARE, MEDICAID, SELFPAY ==
--- OUTSIDE RECORDS SUMMARY | 2025-04-13 03:33 | XMS RPT_ITS | CCD ---
Author Organization [facility] Care Team Providers Care Shipping Lead Person Name Role Phone Mateus Burris Primary Care Provider Monika Staley Unavailable Unavailable Leonor, Maddy L Unavailable Unavailable Update Needed Unavailable Unavailable Mateus Burris Primary Care Provider [phone] Wing Ritter Unavailable Unavailable Monika Staley Unavailable [...] Unavailable Carlos Cavazos MD Primary Care Provider [phone] PROVIDER, UNKNOWN Primary Care Unavailable PROVIDER, UNKNOWN [...] VALLADARES, Dr. Monika Horner Primary Care Provider [facility] Attending Provider [phone] Carlos Nleson Attending Provider Jonh Pascual MD, Dr. Calderon [...] Jonh Cardoza MD, Dr. Monika Horner Primary [facility] Physician Karon Corrales MD Attending Physician Unav ailCarlos Anglin Attending Physician Camelia Corrales MD, Karon Referring Provider Unava evan Staley MD, Dr. Monika Horner Primary [facility] Physician Carlos Nelson Attending Physician Unavailvanessa Corrales [...] OLS, Carlaaveer Referring Unavail able Mukkamalla OLS, Caralaveer Attending Unavail able Luís, Shiela Primary Care Unavailable Mukkamalla OLS, Carlaaveer Referring Unavail able Mukkamalla OLS, Carlaaveer Attending Unavail able Luís, Shiela Primary Care Unavailable Luís, Shiela Primary Care Unavailable Mukkamalla OLS, Carlaaveer Attending Unavail able Katsaros OLS, Carlos Attending Unavailable Luís, Shiela Primary Care Unavailable Luís, Shiela Primary Care Unavailable Mukkamalla OLS, Melindaer Attending Unavail able Katsaros OLS, Carlos Attending Unavailable Líus, Shiela Primary Care Unavailable Luís, Shiela Primary [...] OLS, Mahaveer Attending Unavail able [facility] [place] Attending Unavai lable Luís, Shiela Primary Care Unavailable Crisostomo OLS, Babbaljeet Attending Unavailable Luís, Shiela Primary Care Unavailable [facility] [place] Attending Unavai lable Luís, Shiela Primary Care Unavailable Crisostomo OLS, Babbaljeet Referring Unavailable Crisostomo OLS, Babbaljeet Attending Unavailable Luís, Shiela Primary Care Unavailable Crisostomo OLS, Babbaljeet Attending Unavailable Luís, Shiela Primary Care Unavailable Crisostomo OLS, Babbaljeet Attending Unavailable Luís, Shieal Primary Care Unavailable Crisostomo OLS, Babbaljeet Referring [...] Unavailable MukkKaron Hoover Attending Unavail able Lu[facility], [facility] Unavailable NubiaKaron Stacy Attending Unavail able Luís, Shiela Primary Care Unavailable NubiaKaron Stacy Attending Unavail able Luís, [facility] Unavailable MaribelCarlos Flood Attending Unavailable [place], [employer] Unavailable Allergies Allergy Classification Reported Allergen(s) Allergy Type Date of Onset Reaction(s) Facility (13 sources) [facility]: (15 sources) Alcohol Propensity to adverse reactions to drug 3 Rash, Hives, Other: See Comments, Other [facility] Work Phone: (1 source) Latex Drug Allergy 0 Rash [facility] (8 sources) Cortisone Drug Allergy 2 [facility] (7 sources) Latex Allergy to substance 0 Rash [facility] Medications Current Medications Medication Drug Class(es) Dates Sig (Normalized) Sig (Original) Acetaminophen (10 sources) Start: 10-21-2021 acetaminophen (TYLENOL) tablet 650 mg Start: 09-14-2021 acetaminophen (TYLENOL) 325 MG tablet 650 mg every 6 hours as needed 0 09/14/2021 Active take 2 tablets by [facility] every eight hours acetaminophen [...] Comment on above: [facility] Antacid TABS (6 [...] Comment on above: Take 1 capsule by [facility] three times daily. Complete [...] Units subcutaneously with meals and at bedtime. Turkish Panax Ginseng 100 MG CAPS (8 sources) Turkish Panax Ginseng 100 MG CAPS Quantity: 0 Refills: 0 Ordered: 06-Nov-2019 DO Active Turkish Panax Ginseng 100 MG Oral Capsule (4 sources) Turkish Panax Ginseng 100 MG Oral Capsule Refills: 0 Active Turkish Panax Gin mayuri 100 MG Oral Capsule Refills: 0 DO Active Turkish Panax Ginseng 100 MG Oral Capsule (2 sources) Turkish Panax Gin mayuri 100 MG Oral Capsule [...] once daily. 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 0 Active Comment on above: Take by mouth. petrolatum 0.41 mg/mg topical ointment (1 source) Start : 08-20 white petrolatum (AQUAPHOR) 41 % topical ointment Apply to affected area once daily. 0 08/20/2021 Active Comment on above: Apply to affected ar ea once daily. 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, [address] PT Coag (PPP) [Time] 25.1 s High 11.7-14.9 [facility] Comment on above: Order Comment: 411-2 Performed By: #### L 300.3900 ####[facility] [address] [place], [address] Prothrombin Time w/INRon INR Coag (PPP) [Relative time] 2.3 {INR} Normal [facility] Comment on above: Order Comment: 411-2 Performed By: #### L 300.3900 ####[facility] [address] [place], [address] PT Coag (PPP) [Time] 25.5 s High 11.7-14.9 [facility] Comment on above: Order Comment: 411-2 Performed By: #### L 300.3900 ####[facility] [address] [place], [address] Prothrombin Time w/INRon INR Coag (PPP) [Relative time] 2.0 {INR} Normal [facility] Comment on above: Order Comment: 411.2 Performed By: #### L 300.3900 ####[facility] [address] [place], [address] PT Coag (PPP) [Time] 22.8 s High 11.7-14.9 [facility] Comment on above: Order Comment: 411.2 Performed By: #### L 300.3900 ####[facility] [address] [place], [address] Prothrombin Time w/INRon INR Coag (PPP) [Relative time] 1.7 {INR} Normal [facility] Comment on above: Order Comment: 411-2 Performed By: #### L 300.3900 ####[facility] [address] [place], [address] PT Coag (PPP) [Time] 20.5 s High 11.7-14.9 [facility] Comment on above: Order Comment: 411-2 Performed By: #### L 300.3900 ####[facility] [address] [place], [address] Prothrombin Time w/INRon INR Coag (PPP) [Relative time] 1.5 {INR} Normal [facility] Comment on above: Order Comment: 411.2 Performed By: #### L 300.3900 ####[facility] [address] [place], [address] PT Coag (PPP) [Time] 18.4 s High 11.7-14.9 [facility] Comment on above: Order Comment: 411.2 Performed By: #### L 300.3900 ####[facility] [address] [place], [address] Prothrombin Time w/INRon INR Coag (PPP) [Relative time] 1.8 {INR} Normal [facility] Comment on above: Order Comment: 411.2 Performed By: #### L 300.3900 ####[facility] [address] [place], [address] PT Coag (PPP) [Time] 21.2 s High 11.7-14.9 [facility] Comment on above: Order Comment: 411.2 Performed By: #### L 300.3900 ####[facility] [address] [place], [place], [phone] International normalized rat io (INR) calculationOrdered By: Carlos Cavazos on 03-02-2025 INR Coag (Bld) [Relative time] 2.2 {INR} [facility] Prothrombin Time w/INRon INR Coag (PPP) [Relative time] 2.2 {INR} Normal [facility] Comment on above: Order Comment: 411-2 Performed By: #### L 300.3900 ####[facility] [address] [place], [place], [phone] Prothrombin timeOrdered By: Carlos Cavazos on 03-02-2025 PT Coag (PPP) [Time] 25.3 s High 11.7-14.9 [facility] Comment on above: Order Comment: 411-2 Performed By: #### L 300.3900 ####[facility] [address] [place], [place], [phone] International normalized rat io (INR) calculationOrdered By: Karon Corrales on 02-26-2025 INR Coag (Bld) [Relative time] 2.2 {INR} [facility] Prothrombin Time w/INRon INR Coag (PPP) [Relative time] 2.2 {INR} Normal [facility] Comment on above: Order Comment: 411.2 Performed By: #### L 300.3900 ####[facility] [address] [place], [address] PT Coag (PPP) [Time] 24.5 s High 11.7-14.9 [facility] Comment on above: Order Comment: 411.2 Performed By: #### L 300.3900 ####[facility] [address] [place], [place], [phone] Prothrombin timeOrdered By: Karon Corrales on 02-26-2025 PT Coag (PPP) [Time] 24.5 s High 11.7-14.9 [facility] International normalized rat io (INR) calculationOrdered By: Karon Corrales on 02-23-2025 INR Coag (Bld) [Relative time] 2.0 {INR} [facility] Prothrombin Time w/INRon INR Coag (PPP) [Relative time] 2.0 {INR} Normal [facility] Comment on above: Order Comment: 411.2 Performed By: #### L 300.3900 ####[facility] [address] [place], [place], [phone] PT Coag (PPP) [Time] 23.5 s High 11.7-14.9 [facility] Comment on above: Order Comment: 411.2 Performed By: #### L 300.3900 ####[facility] [address] [place], [place], [phone] Prothrombin timeOrdered By: Karon Corrales on 02-23-2025 PT Coag (PPP) [Time] 23.5 s High 11.7-14.9 [facility] International normalized rat io (INR) calculationOrdered By: Karon Corrales on 02-19-2025 INR Coag (Bld) [Relative time] 1.9 {INR} [facility] Prothrombin Time w/INRon INR Coag (PPP) [Relative time] 1.9 {INR} Normal [facility] Comment on above: Order Comment: 411.2 Performed By: #### L 300.3900 ####[facility] [address] [place], [address]) PT Coag (PPP) [Time] 21.8 s High 11.7-14.9 [facility] Comment on above: Order Comment: 411.2 Performed By: #### L 300.3900 ####[facility] [address] [place], [place], [id number] Prothrombin timeOrdered By: Karon Corrales on 02-19-2025 PT Coag (PPP) [Time] 21.8 s High 11.7-14.9 [facility] International normalized rat io (INR) calculationOrdered By: Karon Corrales on 02-16-2025 INR Coag (Bld) [Relative time] 1.5 {INR} [facility] Prothrombin Time w/INRon INR Coag (PPP) [Relative time] 1.5 {INR} Normal [facility] Comment on above: Order Comment: 411.2 Performed By: #### L 300.3900 ####[facility] [address] [place], [place], [address] PT Coag (PPP) [Time] 18.6 s High 11.7-14.9 [facility] Comment on above: Order Comment: 411.2 Performed By: #### L 300.3900 ####[facility] [address] [place], [place], [address] Prothrombin timeOrdered By: Karon Corrales on 02-16-2025 PT Coag (PPP) [Time] 18.6 s High 11.7-14.9 [facility] International normalized rat io (INR) calculationOrdered By: Kaorn Corrales on 02-12-2025 INR Coag (Bld) [Relative time] 2.5 {INR} [facility] Prothrombin Time w/INRon INR Coag (PPP) [Relative time] 2.5 {INR} Normal [facility] Comment on above: Order Comment: 411.2 Performed By: #### L 300.3900 ####[facility] [address], [address] PT Coag (PPP) [Time] 27.5 s High 11.7-14.9 [facility] Comment on above: Order Comment: 411.2 Performed By: #### L 300.3900 ####[facility] [address] [place], [address] Prothrombin timeOrdered By: Karon Corrales on 02-12-2025 PT Coag (PPP) [Time] 27.5 s High 11.7-14.9 [facility] International normalized rat io (INR) calculationOrdered By: Carlos Cavazos on 02-09-2025 INR Coag (Bld) [Relative time] 2.5 {INR} [facility] Prothrombin Time w/INRon INR Coag (PPP) [Relative time] 2.5 {INR} Normal [facility] Comment on above: Order Comment: 411-2 Performed By: #### L 300.3900 ####[facility] [address] [place], [address] INR Normal [facility] Comment on above: Order Comment: 411.2 Result Comment: MISS ING TUBE Performed By: #### L 300.3900 ####[facility] [address] [place], [address] PROTIME Normal 11.7-14.9 [facility] Comment on above: Order Comment: 411.2 Result Comment: MISS ING TUBE Performed By: #### L 300.3900 ####[facility] [address] [place], [address] Prothrombin timeOrdered By: Carlos Cavazos on 02-09-2025 PT Coag (PPP) [Time] 27.2 s High 11.7-14.9 [facility] Comment on above: Order Comment: 411-2 Performed By: #### L 300.3900 ####[facility] [address] [place], [address] International normalized rat io (INR) calculationOrdered By: Karon Corrales on 02-05-2025 INR Coag (Bld) [Relative time] 2.5 {INR} [facility] Prothrombin Time w/INRon INR Coag (PPP) [Relative time] 2.5 {INR} Normal [facility] Comment on above: Order Comment: 411.2 Performed By: #### L 300.3900 ####[facility] [address] [place], [address] PT Coag (PPP) [Time] 27.6 s High 11.7-14.9 [facility] Comment on above: Order Comment: 411.2 Performed By: #### L 300.3900 ####[facility] [address] [place], [place], [phone] Prothrombin timeOrdered By: Karon Corrales on 02-05-2025 PT Coag (PPP) [Time] 27.6 s High 11.7-14.9 [facility] International normalized rat io (INR) calculationOrdered By: Karon Corrales on 02-02-2025 INR Coag (Bld) [Relative time] 2.4 {INR} [facility] Prothrombin Time w/INRon INR Coag (PPP) [Relative time] 2.4 {INR} Normal [facility] Comment on above: Order Comment: 411.2 Performed By: #### L 300.3900 ####[facility] [address] [place], [address] PT Coag (PPP) [Time] 26.8 s High 11.7-14.9 [facility] Comment on above: Order Comment: 411.2 Performed By: #### L 300.3900 ####[facility] [address] [place], [place], [phone] Prothrombin timeOrdered By: Karon Corrales on 02-02-2025 PT Coag (PPP) [Time] 26.8 s High 11.7-14.9 [facility] International normalized rat io (INR) calculationOrdered By: Karon Corrales on 01-29-2025 INR Coag (Bld) [Relative time] 2.7 {INR} [facility] Prothrombin Time w/INRon INR Coag (PPP) [Relative time] 2.7 {INR} Normal [facility] Comment on above: Performed By: #### L 300.3900 ####[facility] [address] [place], [place], [phone]) PT Coag (PPP) [Time] 29.1 s High 11.7-14.9 [facility] Comment on above: Performed By: #### L 300.3900 ####[facility] [address] [place], [place], [phone]) Prothrombin timeOrdered By: Karon Corrales on 01-29-2025 PT Coag (PPP) [Time] 29.1 s High 11.7-14.9 [facility] International normalized rat io (INR) calculationOrdered By: Karon Corrales on 01-26-2025 INR Coag (Bld) [Relative time] 2.0 {INR} [facility] Prothrombin Time w/INRon INR Coag (PPP) [Relative time] 2.0 {INR} Normal [facility] Comment on above: Order Comment: 411.2 Performed By: #### L 300.3900 ####[facility] [address] [place], [place], [phone]) PT Coag (PPP) [Time] 23.1 s High 11.7-14.9 [facility] Comment on above: Order Comment: 411.2 Performed By: #### L 300.3900 ####[facility] [address] [place], [place], [phone]) Prothrombin timeOrdered By: Karon Corrales on 01-26-2025 PT Coag (PPP) [Time] 23.1 s High 11.7-14.9 [facility] International normalized rat io (INR) calculationOrdered By: Karon Corrales on 01-22-2025 INR Coag (Bld) [Relative time] 2.4 {INR} [facility] Prothrombin Time w/INRon INR Coag (PPP) [Relative time] 2.4 {INR} Normal [facility] Comment on above: Order Comment: 411.2 Performed By: #### L 300.3900 ####[facility] [address] [place], [address] PT Coag (PPP) [Time] 26.6 s High 11.7-14.9 [facility] Comment on above: Order Comment: 411.2 Performed By: #### L 300.3900 ####[facility] [address] [place], [address] Prothrombin timeOrdered By: Karon Corrales on 01-22-2025 PT Coag (PPP) [Time] 26.6 s High 11.7-14.9 [facility] International normalized rat io (INR) calculationOrdered By: Carlos Cavazos on 01-19-2025 INR Coag (Bld) [Relative time] 2.7 {INR} [facility] Prothrombin Time w/INRon INR Coag (PPP) [Relative time] 2.7 {INR} Normal [facility] Comment on above: Order Comment: 411-2 Performed By: #### L 300.3900 ####[facility] [address] [place], [address] PT Coag (PPP) [Time] 29.7 s High 11.7-14.9 [facility] Comment on above: Order Comment: 411-2 Performed By: #### L 300.3900 ####[facility] [address] [place], [address] Prothrombin timeOrdered By: Carlos Cavazos on 01-19-2025 PT Coag (PPP) [Time] 29.7 s High 11.7-14.9 [facility] International normalized rat io (INR) calculationOrdered By: Karon Corrales on 01-15-2025 INR Coag (Bld) [Relative time] 2.4 {INR} [facility] Prothrombin Time w/INRon INR Coag (PPP) [Relative time] 2.4 {INR} Normal [facility] Comment on above: Order Comment: 411.1 Performed By: #### L 300.3900 ####[facility] [address] [place], [place], [phone] PT Coag (PPP) [Time] 26.6 s High 11.7-14.9 [facility] Comment on above: Order Comment: 411.1 Performed By: #### L 300.3900 ####[facility] [address] [place], [place], [address] Prothrombin timeOrdered By: Karon Corrales on 01-15-2025 PT Coag (PPP) [Time] 26.6 s High 11.7-14.9 [facility] KEPPRA (LEVETIRACETAM)on KEPPRA 30.1 ug/mL Normal 10.0-40.0 [facility] Comment on above: Order Comment: 411.1 Result Comment: Perf ormed at: [facility] [address] [id number] Director: Alpesh Vázquez MD, Phone: [phone] Performed By: #### L 4980.0000, E968.8328 ####[facility] [address] [place], [place], [address] International normalized rat io (INR) calculationOrdered By: Karon Corrales on 01-12-2025 INR Coag (Bld) [Relative time] 2.3 {INR} [facility] LevetiracetamOrdered By: Carla Corrales on 01-12-2025 levETIRAcetam [Mass/Vol] 30.1 ug/mL 10.0-40.0 [facility] Comment on above: Performed at: - [facility] [address] [id number] Director: Alpesh Vázquez MD, Phone: [phone] Prothrombin Time w/INRon INR Coag (PPP) [Relative time] 2.3 {INR} Normal [facility] Comment on above: Order Comment: 411.1 Performed By: #### L 3310.0000, L300.3900 ####[facility] [address], [address] PT Coag (PPP) [Time] 26.1 s High 11.7-14.9 [facility] Comment on above: Order Comment: 411.1 Performed By: #### L 3310.0000, L300.3900 ####[facility] [address] [place], [address] Prothrombin timeOrdered By: Karon Corrales on 01-12-2025 PT Coag (PPP) [Time] 26.1 s High 11.7-14.9 [facility] KEPPRA (LEVETIRACETAM)on KEPPRA 27.6 ug/mL Normal 10.0-40.0 [facility] Comment on above: Order Comment: 411.1 Result Comment: Perf ormed at: - [facility] [address] [id number] Director: Alpesh Vázquez MD, Phone: [phone] Performed By: #### L 3310.0000, L300.3900 ####[facility] [address] [place], [address] International normalized rat io (INR) calculationOrdered By: Karon Corrales on 01-08-2025 INR Coag (Bld) [Relative time] 2.2 {INR} [facility] Prothrombin Time w/INRon INR Coag (PPP) [Relative time] 2.2 {INR} Normal [facility] Comment on above: Order Comment: 411.1 Performed By: #### L 300.3900 ####[facility] [address] [place], [address] PT Coag (PPP) [Time] 24.5 s High 11.7-14.9 [facility] Comment on above: Order Comment: 411.1 Performed By: #### L 300.3900 ####[facility] [address] [place], [address] Prothrombin timeOrdered By: Karon Corrales on 01-08-2025 PT Coag (PPP) [Time] 24.5 s High 11.7-14.9 [facility] International normalized rat io (INR) calculationOrdered By: Karon Corrales on 01-06-2025 INR Coag (Bld) [Relative time] 3.2 {INR} [facility] LevetiracetamOrdered By: Carla Corrales on 01-06-2025 levETIRAcetam [Mass/Vol] 27.6 ug/mL 10.0-40.0 [facility] Comment on above: Performed at: [address] [id number] Director: Alpesh Vázquez MD, Phone: [phone] Prothrombin Time w/INRon INR Coag (PPP) [Relative time] 3.2 {INR} Normal [facility] Comment on above: Order Comment: 411.1 Performed By: #### L 3310.0000, L300.3900 ####[facility] [address] [place], [address] PT Coag (PPP) [Time] 33.1 s High 11.7-14.9 [facility] Comment on above: Order Comment: 411.1 Performed By: #### L 3310.0000, L300.3900 ####[facility] [address] [place], [place], [id number] Prothrombin timeOrdered By: Karon Corrales on 01-06-2025 PT Coag (PPP) [Time] 33.1 s High 11.7-14.9 [facility] International normalized rat io (INR) calculationOrdered By: Karon Corrales on 01-01-2025 INR Coag (Bld) [Relative time] 2.7 {INR} [facility] Prothrombin Time w/INRon INR Coag (PPP) [Relative time] 2.7 {INR} Normal [facility] Comment on above: Order Comment: 411.1 Performed By: #### L [id number] ####[facility] [address] [place], [place], [id number] Prothrombin timeOrdered By: Karon Corrales on 01-01-2025 PT Coag (PPP) [Time] 29.1 s High 11.7-14.9 [facility] Comment on above: Order Comment: 411.1 Performed By: #### L [id number] ####[facility] [address] [place], [place], [id number] KEPPRA (LEVETIRACETAM)on KEPPRA 31.8 ug/mL Normal 10.0-40.0 [facility] Comment on above: Order Comment: 411-1 Result Comment: Perf ormed at: - [facility] [place], [place] [id number] Director: Alpesh Vázquez MD, Phone: [phone] Performed By: #### L 3310.0000, L350.8138 ####[facility] [address] [place], [place], [id number] International normalized rat io (INR) calculationOrdered By: Carlos Cavazos on 12-29-2024 INR Coag (Bld) [Relative time] 3.3 {INR} [facility] KEPPRA (LEVETIRACETAM)on KEPPRA 33.3 ug/mL Normal 10.0-40.0 [facility] Comment on above: Order Comment: 411.1 Result Comment: Perf ormed at: [facility] [address] [id number] Director: Alpesh Vázquez MD, Phone: [phone] Performed By: #### L 3310.0000 ####[facility] [address] [facility] [address] LevetiracetamOrdered By: Ted Cavazos on 12-29-2024 levETIRAcetam [Mass/Vol] 31.8 ug/mL 10.0-40.0 [facility] Comment on above: Performed at: [facility] [address] [id number] Director: Alpesh Vázquez MD, Phone: [phone] Prothrombin Time w/INRon INR Coag (PPP) [Relative time] 3.3 {INR} Normal [facility] Comment on above: Order Comment: 411-1 Performed By: #### L 3310.0000, L300.3900 ####[facility] [address] [place], [address] Prothrombin timeOrdered By: Carlos Cavazos on 12-29-2024 PT Coag (PPP) [Time] 34.0 s High 11.7-14.9 [facility] Comment on above: Order Comment: 411-1 Performed By: #### L 3310.0000, L300.3900 ####[facility] [address] [place], [place], [id number] LevetiracetamOrdered By: Carla Corrales on 12-26-2024 levETIRAcetam [Mass/Vol] 33.3 ug/mL 10.0-40.0 [facility] Comment on above: Performed at: [facility] [address], [place] [id number] Director: Alpesh Vázquez MD, Phone: [phone] International normalized rat io (INR) calculationOrdered By: Karon Corrales on 12-25-2024 INR Coag (Bld) [Relative time] 2.8 {INR} [facility] Prothrombin Time w/INRon INR Coag (PPP) [Relative time] 2.8 {INR} Normal [facility] Comment on above: Order Comment: 411.1 Performed By: #### L 300.3900 ####[facility] [address] [place], [address] Prothrombin timeOrdered By: Karon Corrales on 12-25-2024 PT Coag (PPP) [Time] 30.0 s High 11.7-14.9 [facility] Comment on above: Order Comment: 411.1 Performed By: #### L 300.3900 ####[facility] [address] [place], [address] Anion gap in Serum or Plasma Ordered By: Carlos Cavazos on 12-24-2024 Anion gap [Moles/Vol] 13 mmol/L 09-18 [facility] BUN/creatinine ratioOrdered By: Carlos Cavazos on 12-24-2024 Urea nitrogen/Creatinine [Mass ratio] 19.2 mg/mg 02-23 [facility] Basic Metabolic Profile (BMP )on 12-24-2024 BUN/CRE 19.2 RATIO Normal 02-23 [facility] Comment on above: Order Comment: 411-1 Performed By: #### L 500.2500, L100.0500 ####[facility] [address] [place], [address] Calcium [Mass/Vol] 8.8 mg/dL Normal 7.6-11.0 [facility] Comment on above: Order Comment: 411-1 Performed By: #### L 500.2500, L100.0500 ####[facility] [address] [place], [address] Chloride [Moles/Vol] 103 mmol/L Normal 98-108 [facility] Comment on above: Order Comment: 411-1 Performed By: #### L 500.2500, L100.0500 ####[facility] [address] [place], [address] CO2 [Moles/Vol] 23.7 mmol/L Normal 21.0-32.0 [facility] Comment on above: Order Comment: 411-1 Performed By: #### L 500.2500, L100.0500 ####[facility] [address] [place], [address] Creatinine [Mass/Vol] 0.82 mg/dL Normal 0.70-1.20 [facility] Comment on above: Order Comment: 411-1 Performed By: #### L 500.2500, L100.0500 ####[facility] [address] [place], [address] GAP 13 Normal 5-15 [facility] Comment on above: Order Comment: 411-1 Performed By: #### L 500.2500, L100.0500 ####[facility] [address] [place], [address] GFR/1.73 sq M.predicted among non-blacks MDRD (S/P/Bld) [Vol rate/Area] 93 mL/min/{1.73_m2} Normal >60 [facility] Comment on above: Order Comment: 411-1 Result Comment: mL/m in/1.73m2 CKD-EPI Creatinine Equation (2020) Performed By: #### L 500.2500, L100.0500 ####[facility] [address] [place], [address] Glucose [Mass/Vol] 88 mg/dL Normal 70-99 [facility] Comment on above: Order Comment: 411-1 Performed By: #### L 500.2500, L100.0500 ####[facility] [address] [place], [address] Potassium [Moles/Vol] 4.2 mmol/L Normal 3.3-5.1 [facility] Comment on above: Order Comment: 411-1 Performed By: #### L 500.2500, L100.0500 ####[facility] [address] [place], [address] Sodium [Moles/Vol] 139 mmol/L Normal 133-145 [facility] Comment on above: Order Comment: 411-1 Performed By: #### L 500.2500, L100.0500 ####[facility] [address] [place], [address] Urea nitrogen [Mass/Vol] 16 mg/dL Normal 4-19 [facility] Comment on above: Order Comment: 411-1 Performed By: #### L 500.2500, L100.0500 ####[facility] [address] [place], [address] CBC-Complete Blood Cnt No Di ffon 12-24-2024 Erythrocyte distribution width (RBC) [Ratio] 15.4 % High 11.6-14.6 [facility] Comment on above: Order Comment: 411-1 Performed By: #### L 500.2500, L100.0500 ####[facility] [address] [place], [address] Hematocrit (Bld) [Volume fraction] 39.8 % Low 40-54 [facility] Comment on above: Order Comment: 411-1 Performed By: #### L 500.2500, L100.0500 ####[facility] [address] [place], [address] Hemoglobin (Bld) [Mass/Vol] 12.4 g/dL Low 13.0-16.5 [facility] Comment on above: Order Comment: 411-1 Performed By: #### L 500.2500, L100.0500 ####[facility] [address] [place], [address] MCH (RBC) [Entitic mass] 26.6 pg Low 27.0-32.0 [facility] Comment on above: Order Comment: 411-1 Performed By: #### L 500.2500, L100.0500 ####[facility] [address] [place], [address] MCHC (RBC) [Mass/Vol] 31.2 g/dL Low 32-36 [facility] Comment on above: Order Comment: 411-1 Performed By: #### L 500.2500, L100.0500 ####[facility] [address] [place], [address] MCV (RBC) [Entitic vol] 85.4 fL Normal 80-94 [facility] Comment on above: Order Comment: 411-1 Performed By: #### L 500.2500, L100.0500 ####[facility] [address] [place], [address] Platelet mean volume (Bld) [Entitic vol] 10.4 fL Normal 6.2-12.0 [facility] Comment on above: Order Comment: 411-1 Performed By: #### L 500.2500, L100.0500 ####[facility] [address] [place], [address] Platelets (Bld) [#/Vol] 290 10*3/uL Normal 150-450 [facility] Comment on above: Order Comment: 411-1 Performed By: #### L 500.2500, L100.0500 ####[facility] [address] [place], [address] RBC (Bld) [#/Vol] 4.66 10*6/uL Normal 4.6-6.2 [facility] Comment on above: Order Comment: 411-1 Performed By: #### L 500.2500, L100.0500 ####[facility] [address] [place], [address] RDW SD 48.1 fl High 35.1-43.9 [facility] Comment on above: Order Comment: 411-1 Performed By: #### L 500.2500, L100.0500 ####[facility] [address] [place], [address] WBC (Bld) [#/Vol] 16.6 10*3/uL High 4.4-11.0 [facility] Comment on above: Order Comment: 411-1 Performed By: #### L 500.2500, L100.0500 ####[facility] [address] [place], [address] Carbon dioxide, total [Moles /volume] in Central venous bloodOrdered By: Carlos Cavazos on 12-24-2024 CO2 [Moles/Vol] 23.7 mmol/L 21.0-32.0 [facility] Chloride assayOrdered By: Sharif Crouch on 12-24-2024 Chloride [Moles/Vol] 103 mmol/L 98-108 [facility] Erythrocyte distribution wid th ratioOrdered By: Carlos Cavazos on 12-24-2024 Erythrocyte distribution width (RBC) [Ratio] 15.4 % High 11.6-14.6 [facility] Erythrocyte distribution wid th standard deviationOrdered By: Carlos Cavazos on 12-24-2024 Erythrocyte distribution width (RBC) [Ratio] 48.1 fl High 35.1-43.9 [facility] Glomerular filtration rate ( GFR) estimation/1.73 sq m using serum, plasma, or whole bOrdered By: Carlos Cavazos on 12-24-2024 GFR/1.73 sq M.predicted among non-blacks MDRD (S/P/Bld) [Vol rate/Area] 93 mL/min/{1.73_m2} >60 [facility] Comment on above: mL/min/1.73m2 CKD-EP I Creatinine Equation (2020) Hematocrit Auto (Bld) [Volum e fraction]Ordered By: Carlos Cavazos on 12-24-2024 Hematocrit (Bld) [Volume fraction] 39.8 % Low 40-54 [facility] Hemoglobin measurementOrdere d By: Carlos Cavazos on 12-24-2024 Hemoglobin (Bld) [Mass/Vol] 12.4 g/dL Low 13.0-16.5 [facility] MCV (mean corpuscular volume ) determinationOrdered By: Carlos Cavazos on 12-24-2024 MCV (RBC) [Entitic vol] 85.4 fL 80-94 [facility] Mean corpuscular hemoglobin (MCH) determinationOrdered By: Carlos Cavazos on 12-24-2024 MCH (RBC) [Entitic mass] 26.6 pg Low 27.0-32.0 [facility] Mean corpuscular hemoglobin concentration (MCHC) determinationOrdered By: Carlos Cavazos on 12-24-2024 MCHC (RBC) [Mass/Vol] 31.2 g/dL Low 32-36 [facility] Mean platelet volume determi nationOrdered By: Carlos Cavazos on 12-24-2024 Platelet mean volume (Bld) [Entitic vol] 10.4 fL 6.2-12.0 [facility] Platelet countOrdered By: Sharif Crouch on 12-24-2024 Platelets (Bld) [#/Vol] 290 10*3/uL 150-450 [facility] Potassium measurement (mass/ volume)Ordered By: Carlos Cavazos on 12-24-2024 Potassium (Unsp spec) [Mass/Vol] 4.2 mmol/L 3.3-5.1 [facility] RBC Auto (Bld) [#/Vol]Ordere d By: Carlos Cavazos on 12-24-2024 RBC (Bld) [#/Vol] 4.66 10*6/uL 4.6-6.2 [facility] Serum creatinine measurement (mass/volume)Ordered By: Carlos Cavazos on 12-24-2024 Creatinine [Mass/Vol] 0.82 mg/dL 0.70-1.20 [facility] Serum glucose measurement (m ass/volume)Ordered By: Carlos Cavazos on 12-24-2024 Glucose [Mass/Vol] 88 mg/dL 70-99 [facility] Serum or plasma calcium oral urement (mass/volume)Ordered By: Carlos Cavazos on 12-24-2024 Calcium [Mass/Vol] 8.8 mg/dL 7.6-11.0 [facility] Serum or plasma urea nitroge n measurement (mass/volume)Ordered By: Carlos Cavazos on 12-24-2024 Urea nitrogen [Mass/Vol] 16 mg/dL 4-19 [facility] Sodium levelOrdered By: Moe Cavazos on 12-24-2024 Sodium [Moles/Vol] 139 mmol/L 133-145 [facility] White blood cell (WBC) count Ordered By: Carlos Cavazos on 12-24-2024 WBC (Bld) [#/Vol] 16.6 10*3/uL High 4.4-11.0 [facility] International normalized rat io (INR) calculationOrdered By: Karon Corrales on 12-22-2024 INR Coag (Bld) [Relative time] 2.6 {INR} [facility] Prothrombin Time w/INRon INR Coag (PPP) [Relative time] 2.6 {INR} Normal [facility] Comment on above: Order Comment: 411.1 Performed By: #### L 300.1950 ####[facility] [address] [facility] [place], [place], [id number] PT Coag (PPP) [Time] 28.8 s High 11.7-14.9 [facility] Comment on above: Order Comment: 411.1 Performed By: #### L 300.3900 ####[facility] [address] [facility] [place], [place], [id number] Prothrombin timeOrdered By: Karon Corrales on 12-22-2024 PT Coag (PPP) [Time] 28.8 s High 11.7-14.9 [facility] International normalized rat io (INR) calculationOrdered By: Karon Corrales on 12-18-2024 INR Coag (Bld) [Relative time] 2.4 {INR} [facility] Prothrombin Time w/INRon INR Coag (PPP) [Relative time] 2.4 {INR} Normal [facility] Comment on above: Order Comment: 411.1 Performed By: #### L 300.3900 ####[facility] [address] [place], [place], [phone] PT Coag (PPP) [Time] 26.7 s High 11.7-14.9 [facility] Comment on above: Order Comment: 411.1 Performed By: #### L 300.3900 ####[facility] [address] [place], [place], [phone] Prothrombin timeOrdered By: Karon Corrales on 12-18-2024 PT Coag (PPP) [Time] 26.7 s High 11.7-14.9 [facility] International normalized rat io (INR) calculationOrdered By: Karon Corrales on 12-15-2024 INR Coag (Bld) [Relative time] 2.3 {INR} [facility] Prothrombin Time w/INRon INR Coag (PPP) [Relative time] 2.3 {INR} Normal [facility] Comment on above: Order Comment: 411.1 Performed By: #### L 300.3900 ####[facility] [address] [place], [place], [phone] Prothrombin timeOrdered By: Karon Corrales on 12-15-2024 PT Coag (PPP) [Time] 25.7 s High 11.7-14.9 [facility] Comment on above: Order Comment: 411.1 Performed By: #### L 300.3900 ####[facility] [address] [place], [place], [phone] International normalized rat io (INR) calculationOrdered By: Carlos Cavazos on 12-11-2024 INR Coag (Bld) [Relative time] 2.2 {INR} [facility] Prothrombin Time w/INRon INR Coag (PPP) [Relative time] 2.2 {INR} Normal [facility] Comment on above: Order Comment: 411-1 Performed By: #### L 300.3900 ####[facility] [address] [place], [address] Prothrombin timeOrdered By: Carlos Cavazos on 12-11-2024 PT Coag (PPP) [Time] 24.7 s High 11.7-14.9 [facility] Comment on above: Order Comment: 411-1 Performed By: #### L 300.3900 ####[facility] [address] [place], [place], [address] International normalized rat io (INR) calculationOrdered By: Karon Corrales on 12-08-2024 INR Coag (Bld) [Relative time] 2.2 {INR} [facility] Prothrombin Time w/INRon INR Coag (PPP) [Relative time] 2.2 {INR} Normal [facility] Comment on above: Order Comment: 411.1 Performed By: #### L 300.3900 ####[facility] [address] [place], [address] PT Coag (PPP) [Time] 25.0 s High 11.7-14.9 [facility] Comment on above: Order Comment: 411.1 Performed By: #### L 300.3900 ####[facility] [address] [place], [place], [phone] Prothrombin timeOrdered By: Karon Corrales on 12-08-2024 PT Coag (PPP) [Time] 25.0 s High 11.7-14.9 [facility] International normalized rat io (INR) calculationOrdered By: Karon Corrales on 12-04-2024 INR Coag (Bld) [Relative time] 2.3 {INR} [facility] Prothrombin Time w/INRon INR Coag (PPP) [Relative time] 2.3 {INR} Normal [facility] Comment on above: Order Comment: 411.1 Performed By: #### L 300.3900 ####[facility] [address] [place], [address] PT Coag (PPP) [Time] 25.9 s High 11.7-14.9 [facility] Comment on above: Order Comment: 411.1 Performed By: #### L 300.3900 ####[facility] [address] [place], [address] Prothrombin timeOrdered By: Karon Corrales on 12-04-2024 PT Coag (PPP) [Time] 25.9 s High 11.7-14.9 [facility] International normalized rat io (INR) calculationOrdered By: Karon Corrales on 12-02-2024 INR Coag (Bld) [Relative time] 2.5 {INR} [facility] Prothrombin Time w/INRon INR Coag (PPP) [Relative time] 2.5 {INR} Normal [facility] Comment on above: Order Comment: 411.1 Performed By: #### L 300.3900 ####[facility] [address] [place], [address] PT Coag (PPP) [Time] 27.3 s High 11.7-14.9 [facility] Comment on above: Order Comment: 411.1 Performed By: #### L 300.3900 ####[facility] [address] [place], [address] Prothrombin timeOrdered By: Karon Corrales on 12-02-2024 PT Coag (PPP) [Time] 27.3 s High 11.7-14.9 [facility] International normalized rat io (INR) calculationOrdered By: Carlos Cavazos on 12-01-2024 INR Coag (Bld) [Relative time] 2.3 {INR} [facility] Prothrombin Time w/INRon INR Coag (PPP) [Relative time] 2.3 {INR} Normal [facility] Comment on above: Order Comment: 411-1 Performed By: #### L 300.3900 ####[facility] [address] [place], [address] PT Coag (PPP) [Time] 26.0 s High 11.7-14.9 [facility] Comment on above: Order Comment: 411-1 Performed By: #### L 300.3900 ####[facility] [address] [place], [address] Prothrombin timeOrdered By: Carlos Cavazos on 12-01-2024 PT Coag (PPP) [Time] 26.0 s High 11.7-14.9 [facility] International normalized rat io (INR) calculationOrdered By: Carlos Cavazos on 11-28-2024 INR Coag (Bld) [Relative time] 3.1 {INR} [facility] Prothrombin Time w/INRon INR Coag (PPP) [Relative time] 3.1 {INR} Normal [facility] Comment on above: Order Comment: 411-1 Performed By: #### L 300.3900 ####[facility] [address] [place], [address] PT Coag (PPP) [Time] 32.8 s High 11.7-14.9 [facility] Comment on above: Order Comment: 411-1 Performed By: #### L 300.3900 ####[facility] [address] [place], [address] Prothrombin timeOrdered By: Carlos Cavazos on 11-28-2024 PT Coag (PPP) [Time] 32.8 s High 11.7-14.9 [facility] International normalized rat io (INR) calculationOrdered By: Karon Corrales on 11-27-2024 INR Coag (Bld) [Relative time] 3.3 {INR} [facility] Prothrombin Time w/INRon INR Coag (PPP) [Relative time] 3.3 {INR} Normal [facility] Comment on above: Order Comment: 411.1 Performed By: #### L 300.3900 ####[facility] [address] [place], [place], [phone] PT Coag (PPP) [Time] 34.3 s High 11.7-14.9 [facility] Comment on above: Order Comment: 411.1 Performed By: #### L 300.3900 ####[facility] [address] [place], [place], [phone] Prothrombin timeOrdered By: Karon Corrales on 11-27-2024 PT Coag (PPP) [Time] 34.3 s High 11.7-14.9 [facility] International normalized rat io (INR) calculationOrdered By: Karon Corrales on 11-24-2024 INR Coag (Bld) [Relative time] 2.8 {INR} [facility] Prothrombin Time w/INRon INR Coag (PPP) [Relative time] 2.8 {INR} Normal [facility] Comment on above: Order Comment: 411.2 Performed By: #### L 300.3900 ####[facility] [address] [place], [place], [phone] PT Coag (PPP) [Time] 30.0 s High 11.7-14.9 [facility] Comment on above: Order Comment: 411.2 Performed By: #### L 300.3900 ####[facility] [address] [place], [place], [phone] Prothrombin timeOrdered By: Karon Corrales on 11-24-2024 PT Coag (PPP) [Time] 30.0 s High 11.7-14.9 [facility] International normalized rat io (INR) calculationOrdered By: Karon Corrales on 11-20-2024 INR Coag (Bld) [Relative time] 3.0 {INR} [facility] Prothrombin Time w/INRon INR Coag (PPP) [Relative time] 3.0 {INR} Normal [facility] Comment on above: Order Comment: 411.2 Performed By: #### L 300.3900 ####[facility] [address] [place], [place], [phone] PT Coag (PPP) [Time] 32.0 s High 11.7-14.9 [facility] Comment on above: Order Comment: 411.2 Performed By: #### L 300.3900 ####[facility] [address] [place], [place], [phone] Prothrombin timeOrdered By: Karon Corrales on 11-20-2024 PT Coag (PPP) [Time] 32.0 s High 11.7-14.9 [facility] International normalized rat io (INR) calculationOrdered By: Karon Corrales on 11-17-2024 INR Coag (Bld) [Relative time] 2.9 {INR} [facility] Prothrombin Time w/INRon INR Coag (PPP) [Relative time] 2.9 {INR} Normal [facility] Comment on above: Order Comment: 411.2 Performed By: #### L 300.3900 ####[facility] [address] [place], [place], [phone] PT Coag (PPP) [Time] 30.7 s High 11.7-14.9 [facility] Comment on above: Order Comment: 411.2 Performed By: #### L 300.3900 ####[facility] [address] [place], [place], [phone] Prothrombin timeOrdered By: Karon Corrales on 11-17-2024 PT Coag (PPP) [Time] 30.7 s High 11.7-14.9 [facility] International normalized rat io (INR) calculationOrdered By: Karon Corrales on 11-13-2024 INR Coag (Bld) [Relative time] 2.2 {INR} [facility] Prothrombin Time w/INRon INR Coag (PPP) [Relative time] 2.2 {INR} Normal [facility] Comment on above: Order Comment: 411.2 Performed By: #### L 300.3900 ####[facility] [address] [place], [place], [phone](572 PT Coag (PPP) [Time] 24.7 s High 11.7-14.9 [facility] Comment on above: Order Comment: 411.2 Performed By: #### L 300.3900 ####[facility] [address] [place], [place], [phone] Prothrombin timeOrdered By: Karon Corrales on 11-13-2024 PT Coag (PPP) [Time] 24.7 s High 11.7-14.9 [facility] International normalized rat io (INR) calculationOrdered By: Karon Corrales on 11-10-2024 INR Coag (Bld) [Relative time] 2.6 {INR} [facility] Prothrombin Time w/INRon INR Coag (PPP) [Relative time] 2.6 {INR} Normal [facility] Comment on above: Order Comment: 411.2 Performed By: #### L 300.3900 ####[facility] [address] [place], [address] PT Coag (PPP) [Time] 28.7 s High 11.7-14.9 [facility] Comment on above: Order Comment: 411.2 Performed By: #### L 300.3900 ####[facility] [address] [place], [place], [phone] Prothrombin timeOrdered By: Karon Corrales on 11-10-2024 PT Coag (PPP) [Time] 28.7 s High 11.7-14.9 [facility] International normalized rat io (INR) calculationOrdered By: Karon Corrales on 11-06-2024 INR Coag (Bld) [Relative time] 3.1 {INR} [facility] Prothrombin Time w/INRon INR Coag (PPP) [Relative time] 3.1 {INR} Normal [facility] Comment on above: Order Comment: 411.2 Performed By: #### L 300.3900 ####[facility] [address] [place], [address] Prothrombin timeOrdered By: Karon Corrales on 11-06-2024 PT Coag (PPP) [Time] 33.0 s High 11.7-14.9 [facility] Comment on above: Order Comment: 411.2 Performed By: #### L 300.3900 ####[facility] [address] [place], [address] International normalized rat io (INR) calculationOrdered By: Carlos Cavazos on 11-03-2024 INR Coag (Bld) [Relative time] 3.0 {INR} [facility] Prothrombin Time w/INRon INR Coag (PPP) [Relative time] 3.0 {INR} Normal [facility] Comment on above: Order Comment: 411-2 Performed By: #### L 300.3900 ####[facility] [address] [place], [address] PT Coag (PPP) [Time] 31.4 s High 11.7-14.9 [facility] Comment on above: Order Comment: 411-2 Performed By: #### L 300.3900 ####[facility] [address] [place], [address] Prothrombin timeOrdered By: Carlos Cavazos on 11-03-2024 PT Coag (PPP) [Time] 31.4 s High 11.7-14.9 [facility] International normalized rat io (INR) calculationOrdered By: Karon Corrales on 10-30-2024 INR Coag (Bld) [Relative time] 2.4 {INR} [facility] Prothrombin Time w/INRon INR Coag (PPP) [Relative time] 2.4 {INR} Normal [facility] Comment on above: Performed By: #### L 300.3900 ####[facility] [address] [place], [place], [phone] PT Coag (PPP) [Time] 26.3 s High 11.7-14.9 [facility] Comment on above: Performed By: #### L 300.3900 ####[facility] [address] [place], [place], [phone] Prothrombin timeOrdered By: Karon Corrales on 10-30-2024 PT Coag (PPP) [Time] 26.3 s High 11.7-14.9 [facility] International normalized rat io (INR) calculationOrdered By: Karon Corrales on 10-27-2024 INR Coag (Bld) [Relative time] 2.2 {INR} [facility] Prothrombin Time w/INRon INR Coag (PPP) [Relative time] 2.2 {INR} Normal [facility] Comment on above: Order Comment: 411.2 Performed By: #### L 300.3900 ####[facility] [address] [place], [place], [phone] Prothrombin timeOrdered By: Karon Corrales on 10-27-2024 PT Coag (PPP) [Time] 24.5 s High 11.7-14.9 [facility] Comment on above: Order Comment: 411.2 Performed By: #### L 300.3900 ####[facility] [address] [place], [address] International normalized rat io (INR) calculationOrdered By: Karon Corrales on 10-23-2024 INR Coag (Bld) [Relative time] 2.5 {INR} [facility] Prothrombin Time w/INRon INR Coag (PPP) [Relative time] 2.5 {INR} Normal [facility] Comment on above: Order Comment: 411.2 Performed By: #### L 300.3900 ####[facility] [address], [address] PT Coag (PPP) [Time] 27.9 s High 11.7-14.9 [facility] Comment on above: Order Comment: 411.2 Performed By: #### L 300.3900 ####[facility] [address], [address] Prothrombin timeOrdered By: Karon Corrales on 10-23-2024 PT Coag (PPP) [Time] 27.9 s High 11.7-14.9 [facility] International normalized rat io (INR) calculationOrdered By: Karon Corrales on 10-20-2024 INR Coag (Bld) [Relative time] 3.1 {INR} [facility] Prothrombin Time w/INRon INR Coag (PPP) [Relative time] 3.1 {INR} Normal [facility] Comment on above: Order Comment: 411.2 Performed By: #### L 300.3900 ####[facility] [address] [place], [address] PT Coag (PPP) [Time] 32.8 s High 11.7-14.9 [facility] Comment on above: Order Comment: 411.2 Performed By: #### L 300.3900 ####[facility] [address], [address] Prothrombin timeOrdered By: Karon Corrales on 10-20-2024 PT Coag (PPP) [Time] 32.8 s High 11.7-14.9 [facility] International normalized rat io (INR) calculationOrdered By: Karon Corrales on 10-16-2024 INR Coag (Bld) [Relative time] 2.8 {INR} [facility] Prothrombin Time w/INRon INR Coag (PPP) [Relative time] 2.8 {INR} Normal [facility] Comment on above: Order Comment: 411.2 Performed By: #### L 300.3900 ####[facility] [address] [place], [place], [phone] PT Coag (PPP) [Time] 30.4 s High 11.7-14.9 [facility] Comment on above: Order Comment: 411.2 Performed By: #### L 300.3900 ####[facility] [address] [place], [phone] Prothrombin timeOrdered By: Karon Corrales on 10-16-2024 PT Coag (PPP) [Time] 30.4 s High 11.7-14.9 [facility] International normalized rat io (INR) calculationOrdered By: Carlos Cavazos on 10-13-2024 INR Coag (Bld) [Relative time] 1.9 {INR} [facility] Prothrombin Time w/INRon INR Coag (PPP) [Relative time] 1.9 {INR} Normal [facility] Comment on above: Order Comment: 411-2 Performed By: #### L 300.3900 ####[facility] [address] [place], [place], [phone] PT Coag (PPP) [Time] 22.4 s High 11.7-14.9 [facility] Comment on above: Order Comment: 411-2 Performed By: #### L 300.3900 ####[facility] [address] [place], [place], [phone] Prothrombin timeOrdered By: Carlos Cavazos on 10-13-2024 PT Coag (PPP) [Time] 22.4 s High 11.7-14.9 [facility] International normalized rat io (INR) calculationOrdered By: Karon Corrales on 10-09-2024 INR Coag (Bld) [Relative time] 3.0 {INR} [facility] Prothrombin Time w/INRon INR Coag (PPP) [Relative time] 3.0 {INR} Normal [facility] Comment on above: Order Comment: 411.2 Performed By: #### L 300.3900 ####[facility] [address] [place], [address] Prothrombin timeOrdered By: Karon Corrales on 10-09-2024 PT Coag (PPP) [Time] 31.8 s High 11.7-14.9 [facility] Comment on above: Order Comment: 411.2 Performed By: #### L 300.3900 ####[facility] [address] [place], [address] International normalized rat io (INR) calculationOrdered By: Carlos Cavazos on 10-06-2024 INR Coag (Bld) [Relative time] 2.7 {INR} [facility] Prothrombin Time w/INRon INR Coag (PPP) [Relative time] 2.7 {INR} Normal [facility] Comment on above: Order Comment: 411-2 Performed By: #### L 300.3900 ####[facility] [address] [place], [address] PT Coag (PPP) [Time] 29.6 s High 11.7-14.9 [facility] Comment on above: Order Comment: 411-2 Performed By: #### L 300.3900 ####[facility] [address] [place], [address] Prothrombin timeOrdered By: Carlos Cavazos on 10-06-2024 PT Coag (PPP) [Time] 29.6 s High 11.7-14.9 [facility] International normalized rat io (INR) calculationOrdered By: Karon Corrales on 10-02-2024 INR Coag (Bld) [Relative time] 2.3 {INR} [facility] Prothrombin Time w/INRon INR Coag (PPP) [Relative time] 2.3 {INR} Normal [facility] Comment on above: Order Comment: 411.2 Performed By: #### L 300.3900 ####[facility] [address] [place], [address] PT Coag (PPP) [Time] 26.0 s High 11.7-14.9 [facility] Comment on above: Order Comment: 411.2 Performed By: #### L 300.3900 ####[facility] [address] [place], [address] Prothrombin timeOrdered By: Karon Corrales on 10-02-2024 PT Coag (PPP) [Time] 26.0 s High 11.7-14.9 [facility] International normalized rat io (INR) calculationOrdered By: Karon Corrales on 09-30-2024 INR Coag (Bld) [Relative time] 3.1 {INR} [facility] Prothrombin Time w/INRon INR Coag (PPP) [Relative time] 3.1 {INR} Normal [facility] Comment on above: Order Comment: 411.2 Performed By: #### L 300.3900 ####[facility] [address] [place], [address] PT Coag (PPP) [Time] 32.6 s High 11.7-14.9 [facility] Comment on above: Order Comment: 411.2 Performed By: #### L 300.3900 ####[facility] [address] [place], [place], [phone] Prothrombin timeOrdered By: Karon Corrales on 09-30-2024 PT Coag (PPP) [Time] 32.6 s High 11.7-14.9 [facility] International normalized rat io (INR) calculationOrdered By: Karon Corrales on 09-25-2024 INR Coag (Bld) [Relative time] 2.4 {INR} [facility] Prothrombin Time w/INRon INR Coag (PPP) [Relative time] 2.4 {INR} Normal [facility] Comment on above: Order Comment: 411.2 Performed By: #### L 300.3900 ####[facility] [address] [place], [address] Prothrombin timeOrdered By: Karon Corrales on 09-25-2024 PT Coag (PPP) [Time] 26.7 s High 11.7-14.9 [facility] Comment on above: Order Comment: 411.2 Performed By: #### L 300.3900 ####[facility] [address] [place], [place], [phone] International normalized rat io (INR) calculationOrdered By: Karon Corrales on 09-22-2024 INR Coag (Bld) [Relative time] 2.5 {INR} [facility] Prothrombin Time w/INRon INR Coag (PPP) [Relative time] 2.5 {INR} Normal [facility] Comment on above: Order Comment: 411.2 Performed By: #### L 300.3900 ####[facility] [address] [place], [place], [phone] Prothrombin timeOrdered By: Karon Corrales on 09-22-2024 PT Coag (PPP) [Time] 27.4 s High 11.7-14.9 [facility] Comment on above: Order Comment: 411.2 Performed By: #### L 300.3900 ####[facility] [address] [place], [address] International normalized rat io (INR) calculationOrdered By: Karon Corrales on 09-18-2024 INR Coag (Bld) [Relative time] 2.2 {INR} [facility] Prothrombin Time w/INRon INR Coag (PPP) [Relative time] 2.2 {INR} Normal [facility] Comment on above: Order Comment: 411.2 Performed By: #### L 300.3900 ####[facility] [address] [place], [place], [phone] PT Coag (PPP) [Time] 25.1 s High 11.7-14.9 [facility] Comment on above: Order Comment: 411.2 Performed By: #### L 300.3900 ####[facility] [address] [place], [place], [phone] Prothrombin timeOrdered By: Karon Corrales on 09-18-2024 PT Coag (PPP) [Time] 25.1 s High 11.7-14.9 [facility] International normalized rat io (INR) calculationOrdered By: Carlos Cavazos on 09-15-2024 INR Coag (Bld) [Relative time] 2.4 {INR} [facility] Prothrombin Time w/INRon INR Coag (PPP) [Relative time] 2.4 {INR} Normal [facility] Comment on above: Order Comment: 411-2 Performed By: #### L 300.3900 ####[facility] [address] [place], [place], [phone] Prothrombin timeOrdered By: Carlos Cavazos on 09-15-2024 PT Coag (PPP) [Time] 26.3 s High 11.7-14.9 [facility] Comment on above: Order Comment: 411-2 Performed By: #### L 300.3900 ####[facility] [address] [place], [place], [address] International normalized rat io (INR) calculationOrdered By: Karon Corrales on 09-11-2024 INR Coag (Bld) [Relative time] 2.0 {INR} [facility] Prothrombin Time w/INRon INR Coag (PPP) [Relative time] 2.0 {INR} Normal [facility] Comment on above: Order Comment: 411.2 Performed By: #### L 300.3900 ####[facility] [address] [place], [place], [phone] PT Coag (PPP) [Time] 22.9 s High 11.7-14.9 [facility] Comment on above: Order Comment: 411.2 Performed By: #### L 300.3900 ####[facility] [address] [place], [place], [phone]) Prothrombin timeOrdered By: Karon Corrales on 09-11-2024 PT Coag (PPP) [Time] 22.9 s High 11.7-14.9 [facility] International normalized rat io (INR) calculationOrdered By: Karon Corrales on 09-08-2024 INR Coag (Bld) [Relative time] 2.0 {INR} [facility] Prothrombin Time w/INRon INR Coag (PPP) [Relative time] 2.0 {INR} Normal [facility] Comment on above: Order Comment: 411.2 Performed By: #### L 300.3900 ####[facility] [address] [place], [place], [phone] PT Coag (PPP) [Time] 22.8 s High 11.7-14.9 [facility] Comment on above: Order Comment: 411.2 Performed By: #### L 300.3900 ####[facility] [address] [place], [place], [phone] Prothrombin timeOrdered By: Karon Corrales on 09-08-2024 PT Coag (PPP) [Time] 22.8 s High 11.7-14.9 [facility] International normalized rat io (INR) calculationOrdered By: Carlos Cavazos on 09-04-2024 INR Coag (Bld) [Relative time] 1.7 {INR} [facility] Prothrombin Time w/INRon INR Coag (PPP) [Relative time] 1.7 {INR} Normal [facility] Comment on above: Order Comment: 411-2 Performed By: #### L 300.3900 ####[facility] [address], [phone] PT Coag (PPP) [Time] 20.8 s High 11.7-14.9 [facility] Comment on above: Order Comment: 411-2 Performed By: #### L 300.3900 ####[facility] [address] [place], [address] Prothrombin timeOrdered By: Carlos Cavazos on 09-04-2024 PT Coag (PPP) [Time] 20.8 s High 11.7-14.9 [facility] International normalized rat io (INR) calculationOrdered By: Carlos Cavazos on 09-01-2024 INR Coag (Bld) [Relative time] 2.9 {INR} [facility] Prothrombin Time w/INRon INR Coag (PPP) [Relative time] 2.9 {INR} Normal [facility] Comment on above: Order Comment: 411-2 Performed By: #### L 300.3900 ####[facility] [address] [place], [address] PT Coag (PPP) [Time] 30.7 s High 11.7-14.9 [facility] Comment on above: Order Comment: 411-2 Performed By: #### L 300.3900 ####[facility] [address], [phone] Prothrombin timeOrdered By: Carlos Cavazos on 09-01-2024 PT Coag (PPP) [Time] 30.7 s High 11.7-14.[address] [facility] International normalized rat io (INR) calculationOrdered By: Carlos Cavazos on 08-28-2024 INR Coag (Bld) [Relative time] 2.4 {INR} [facility] Prothrombin Time w/INRon INR Coag (PPP) [Relative time] 2.4 {INR} Normal [facility] Comment on above: Order Comment: 411-2 Performed By: #### L 300.3900 ####[facility] [address] [place], [address] Prothrombin timeOrdered By: Carlos Cavazos on 08-28-2024 PT Coag (PPP) [Time] 26.7 s High 11.7-14.9 [facility] Comment on above: Order Comment: 411-2 Performed By: #### L 300.3900 ####[facility] [address] [place], [address] International normalized rat io (INR) calculationOrdered By: Karon Corrales on 08-25-2024 INR Coag (Bld) [Relative time] 1.8 {INR} [facility] Prothrombin Time w/INRon INR Coag (PPP) [Relative time] 1.8 {INR} Normal [facility] Comment on above: Order Comment: 411.2 Performed By: #### L 300.3900 ####[facility] [address] [place], [place], [address] PT Coag (PPP) [Time] 21.6 s High 11.7-14.9 [facility] Comment on above: Order Comment: 411.2 Performed By: #### L 300.3900 ####[facility] [address] [place], [address] Prothrombin timeOrdered By: Karon Corrales on 08-25-2024 PT Coag (PPP) [Time] 21.6 s High 11.7-14.9 [facility] International normalized rat io (INR) calculationOrdered By: Karon Corrales on 08-21-2024 INR Coag (Bld) [Relative time] 1.7 {INR} [facility] PSA, total screeningOrdered By: Karon Corrales on 08-21-2024 Prostate Specific Antigen Screen 0.52 ng/mL 0.02-4.00 [facility] Comment on above: This test was perfor med using the [employer] tPSA method. Measured values of a patient sample can vary depending on the testing procedure used. PSA values determined on patient samples by different testing procedures cannot be used interchangeably. If there is a change in PSA assays while monitoring therapy, sequential testing should be performed to confirm baseline values. PSA,Total - Annual Screenon 08-21-2024 PSA,TOT SCREEN 0.52 ng/mL Normal 0.02-4.00 [facility] Comment on above: Order Comment: [...] values. Performed By: #### L 501.9910, L300.3900 ####[facility] [address], [address] Prothrombin Time w/INRon INR Coag (PPP) [Relative time] 1.7 {INR} Normal [facility] Comment on above: Order Comment: 411.2 Performed By: #### L 501.9910, L300.3900 ####[facility] [address] [place], [address] Prothrombin timeOrdered By: Karon Corrales on 08-21-2024 PT Coag (PPP) [Time] 20.1 s High 11.7-14.9 [facility] Comment on above: Order Comment: 411.2 Performed By: #### L 501.9910, L300.3900 ####[facility] [address] [place], [place], [phone] International normalized rat io (INR) calculationOrdered By: Karon Corrales on 08-18-2024 INR Coag (Bld) [Relative time] 3.0 {INR} [facility] Prothrombin Time w/INRon INR Coag (PPP) [Relative time] 3.0 {INR} Normal [facility] Comment on above: Order Comment: 411.2 Performed By: #### L 300.3900 ####[facility] [address] [place], [place], [phone](921) PT Coag (PPP) [Time] 31.4 s High 11.7-14.9 [facility] Comment on above: Order Comment: 411.2 Performed By: #### L 300.3900 ####[facility] [address] [place], [place], [phone](186) Prothrombin timeOrdered By: Karon Corrales on 08-18-2024 PT Coag (PPP) [Time] 31.4 s High 11.7-14.9 [facility] International normalized rat io (INR) calculationOrdered By: Karon Corrales on 08-14-2024 INR Coag (Bld) [Relative time] 2.4 {INR} [facility] Prothrombin Time w/INRon INR Coag (PPP) [Relative time] 2.4 {INR} Normal [facility] Comment on above: Order Comment: 411.2 Performed By: #### L 300.3900 ####[facility] [address] [place], [address] PT Coag (PPP) [Time] 26.6 s High 11.7-14.9 [facility] Comment on above: Order Comment: 411.2 Performed By: #### L 300.3900 ####[facility] [address] [place], [place], [phone](969) Prothrombin timeOrdered By: Karon Corrales on 08-14-2024 PT Coag (PPP) [Time] 26.6 s High 11.7-14.9 [facility] International normalized rat io (INR) calculationOrdered By: Karon Corrales on 08-11-2024 INR Coag (Bld) [Relative time] 3.1 {INR} [facility] Prothrombin Time w/INRon INR Coag (PPP) [Relative time] 3.1 {INR} Normal [facility] Comment on above: Order Comment: 411.2 Performed By: #### L 300.3900 ####[facility] [address] [place], [place], [phone](546) PT Coag (PPP) [Time] 32.4 s High 11.7-14.9 [facility] Comment on above: Order Comment: 411.2 Performed By: #### L 300.3900 ####[facility] [address] [place], [place], [phone] Prothrombin timeOrdered By: Karon Corrales on 08-11-2024 PT Coag (PPP) [Time] 32.4 s High 11.7-14.9 [facility] International normalized rat io (INR) calculationOrdered By: Carlos Cavazos on 08-07-2024 INR Coag (Bld) [Relative time] 2.8 {INR} [facility] Prothrombin Time w/INRon INR Coag (PPP) [Relative time] 2.8 {INR} Normal [facility] Comment on above: Order Comment: 411-2 Performed By: #### L 300.3900 ####[facility] [address] [place], [place], [phone] PT Coag (PPP) [Time] 30.3 s High 11.7-14.9 [facility] Comment on above: Order Comment: 411-2 Performed By: #### L 300.3900 ####[facility] [address] [place], [address] Prothrombin timeOrdered By: Carlos Cavazos on 08-07-2024 PT Coag (PPP) [Time] 30.3 s High 11.7-14.9 [facility] International normalized rat io (INR) calculationOrdered By: Carlos Cavazos on 08-04-2024 INR Coag (Bld) [Relative time] 1.9 {INR} [facility] Prothrombin Time w/INRon INR Coag (PPP) [Relative time] 1.9 {INR} Normal [facility] Comment on above: Order Comment: 411-2 Performed By: #### L 300.3900 ####[facility] [address] [place], [place], [phone] PT Coag (PPP) [Time] 22.1 s High 11.7-14.9 [facility] Comment on above: Order Comment: 411-2 Performed By: #### L 300.3900 ####[facility] [address] [place], [place], [phone] Prothrombin timeOrdered By: Carlos Cavazos on 08-04-2024 PT Coag (PPP) [Time] 22.1 s High 11.7-14.9 [facility] International normalized rat io (INR) calculationOrdered By: Karon Corrales on 07-31-2024 INR Coag (Bld) [Relative time] 3.2 {INR} [facility] Prothrombin Time w/INRon INR Coag (PPP) [Relative time] 3.2 {INR} Normal [facility] Comment on above: Order Comment: 411.2 Performed By: #### L 300.3900 ####[facility] [address] [place], [place], [phone] PT Coag (PPP) [Time] 33.5 s High 11.7-14.9 [facility] Comment on above: Order Comment: 411.2 Performed By: #### L 300.3900 ####[facility] [address] [place], [place], [phone] Prothrombin timeOrdered By: Karon Corrales on 07-31-2024 PT Coag (PPP) [Time] 33.5 s High 11.7-14.9 [facility] International normalized rat io (INR) calculationOrdered By: Karon Corrales on 07-28-2024 INR Coag (Bld) [Relative time] 2.7 {INR} [facility] Prothrombin Time w/INRon INR Coag (PPP) [Relative time] 2.7 {INR} Normal [facility] Comment on above: Order Comment: 411.2 Performed By: #### L 300.3900 ####[facility] [address] [place], [place], [phone] PT Coag (PPP) [Time] 29.6 s High 11.7-14.9 [facility] Comment on above: Order Comment: 411.2 Performed By: #### L 300.3900 ####[facility] [address] [place], [place], [phone] Prothrombin timeOrdered By: Karon Corrales on 07-28-2024 PT Coag (PPP) [Time] 29.6 s High 11.7-14.9 [facility] International normalized rat io (INR) calculationOrdered By: Carlos Cavazos on 07-25-2024 INR Coag (Bld) [Relative time] 3.0 {INR} [facility] Prothrombin Time w/INRon INR Coag (PPP) [Relative time] 3.0 {INR} Normal [facility] Comment on above: Order Comment: 411-2 Performed By: #### L 300.3900 ####[facility] [address] [place], [address] Prothrombin timeOrdered By: Carlos Cavazos on 07-25-2024 PT Coag (PPP) [Time] 32.1 s High 11.7-14.9 [facility] Comment on above: Order Comment: 411-2 Performed By: #### L 300.3900 ####[facility] [address] [place], [place], [phone] International normalized rat io (INR) calculationOrdered By: Karon Corrales on 07-24-2024 INR Coag (Bld) [Relative time] 3.4 {INR} [facility] Prothrombin Time w/INRon INR Coag (PPP) [Relative time] 3.4 {INR} Normal [facility] Comment on above: Order Comment: 411.2 Performed By: #### L 300.3900 ####[facility] [address] [place], [place], [phone] Prothrombin timeOrdered By: Karon Corrales on 07-24-2024 PT Coag (PPP) [Time] 35.4 s High 11.7-14.9 [facility] Comment on above: Order Comment: 411.2 Performed By: #### L 300.3900 ####[facility] [address] [place], [place], [address] International normalized rat io (INR) calculationOrdered By: Karon Corrales on 07-21-2024 INR Coag (Bld) [Relative time] 1.6 {INR} [facility] Prothrombin Time w/INRon INR Coag (PPP) [Relative time] 1.6 {INR} Normal [facility] Comment on above: Order Comment: 411.2 Performed By: #### L 300.3900 ####[facility] [address] [place], [place], [phone] PT Coag (PPP) [Time] 19.6 s High 11.7-14.9 [facility] Comment on above: Order Comment: 411.2 Performed By: #### L 300.3900 ####[facility] [address] [place], [place], [phone]([phone] Prothrombin timeOrdered By: Karon Corrales on 07-21-2024 PT Coag (PPP) [Time] 19.6 s High 11.7-14.9 [facility] International normalized rat io (INR) calculationOrdered By: Karon Corrales on 07-17-2024 INR Coag (Bld) [Relative time] 2.9 {INR} [facility] Prothrombin Time w/INRon INR Coag (PPP) [Relative time] 2.9 {INR} Normal [facility] Comment on above: Order Comment: 411.2 Performed By: #### L 300.3900 ####[facility] [address] [place], [place], [phone](321 PT Coag (PPP) [Time] 31.1 s High 11.7-14.9 [facility] Comment on above: Order Comment: 411.2 Performed By: #### L 300.3900 ####[facility] [address] [place], [address] Prothrombin timeOrdered By: Karon Corrales on 07-17-2024 PT Coag (PPP) [Time] 31.1 s High 11.7-14.9 [facility] International normalized rat io (INR) calculationOrdered By: Carlos Cavazos on 07-14-2024 INR Coag (Bld) [Relative time] 2.5 {INR} [facility] Prothrombin Time w/INRon INR Coag (PPP) [Relative time] 2.5 {INR} Normal [facility] Comment on above: Order Comment: 411-2 Performed By: #### L 300.3900 ####[facility] [address] [place], [address] PT Coag (PPP) [Time] 27.5 s High 11.7-14.9 [facility] Comment on above: Order Comment: 411-2 Performed By: #### L 300.3900 ####[facility] [address] [place], [address] Prothrombin timeOrdered By: Carlos Cavazos on 07-14-2024 PT Coag (PPP) [Time] 27.5 s High 11.7-14.9 [facility] [employer] normalized rat io (INR) calculationOrdered By: Carlos Cavazos on 07-11-2024 INR Coag (Bld) [Relative time] 2.5 {INR} [facility] Prothrombin Time w/INRon INR Coag (PPP) [Relative time] 2.5 {INR} Normal [facility] Comment on above: Performed By: #### L 300.3900 ####[facility] [address] [place], [address] PT Coag (PPP) [Time] 27.7 s High 11.7-14.9 [facility] Comment on above: Performed By: #### L 300.3900 ####[facility] [address] [place], [place], [id number] Prothrombin timeOrdered By: Carlos Cavazos on 07-11-2024 PT Coag (PPP) [Time] 27.7 s High 11.7-14.9 [facility] Prothrombin Time w/INRon INR Normal [facility] Comment on above: Order Comment: 411.2 Result Comment: QNS TUBE NOT FILLED Performed By: #### L 300.3900 ####[facility] [address] [place], [place], [phone] PROTIME Normal 11.7-14.9 [facility] Comment on above: Order Comment: 411.2 Result Comment: QNS TUBE NOT FILLED Performed By: #### L 300.3900 ####[facility] [address] [place], [place], [phone]) International normalized rat io (INR) calculationOrdered By: Kvng Crisostomo on 07-07-2024 INR Coag (Bld) [Relative time] 2.5 {INR} [facility] Prothrombin Time w/INRon INR Coag (PPP) [Relative time] 2.5 {INR} Normal [facility] Comment on above: Order Comment: 411.2 Performed By: #### L 300.3900 ####[facility] [address] [place], [address] PT Coag (PPP) [Time] 27.2 s High 11.7-14.9 [facility] Comment on above: Order Comment: 411.2 Performed By: #### L 300.3900 ####[facility] [address] [place], [address] Prothrombin timeOrdered By: Kvng Crisostomo on 07-07-2024 PT Coag (PPP) [Time] 27.2 s High 11.7-14.9 [facility] International normalized rat io (INR) calculationOrdered By: Kvng Crisostomo on 07-03-2024 INR Coag (Bld) [Relative time] 2.5 {INR} [facility] Prothrombin Time w/INRon INR Coag (PPP) [Relative time] 2.5 {INR} Normal [facility] Comment on above: Order Comment: 411.2 Performed By: #### L 300.3900 ####[facility] [address] [place], [address] PT Coag (PPP) [Time] 27.2 s High 11.7-14.9 [facility] Comment on above: Order Comment: 411.2 Performed By: #### L 300.3900 ####[facility] [address] [place], [address] Prothrombin timeOrdered By: Kvng Crisostomo on 07-03-2024 PT Coag (PPP) [Time] 27.2 s High 11.7-14.9 [facility] International normalized rat io (INR) calculationOrdered By: Kvng Crisostomo on 06-30-2024 INR Coag (Bld) [Relative time] 2.4 {INR} [facility] Prothrombin Time w/INRon INR Coag (PPP) [Relative time] 2.4 {INR} Normal [facility] Comment on above: Order Comment: 411.2 Performed By: #### L 300.3900 ####[facility] [address] [place], [address] PT Coag (PPP) [Time] 26.8 s High 11.7-14.9 [facility] Comment on above: Order Comment: 411.2 Performed By: #### L 300.3900 ####[facility] [address] [place], [address] Prothrombin timeOrdered By: Kvng Crisostomo on 06-30-2024 PT Coag (PPP) [Time] 26.8 s High 11.7-14.9 [facility] [employer] normalized rat io (INR) calculationOrdered By: Kvng Crisostomo on 06-26-2024 INR Coag (Bld) [Relative time] 2.5 {INR} [facility] Prothrombin Time w/INRon INR Coag (PPP) [Relative time] 2.5 {INR} Normal [facility] Comment on above: Order Comment: 411.2 Performed By: #### L 300.3900 ####[facility] [address] [place], [address] PT Coag (PPP) [Time] 27.5 s High 11.7-14.9 [facility] Comment on above: Order Comment: 411.2 Performed By: #### L 300.3900 ####[facility] [address] [place], [place], [phone](013) Prothrombin timeOrdered By: Kvng Crisostomo on 06-26-2024 PT Coag (PPP) [Time] 27.5 s High 11.7-14.9 [facility] International normalized rat io (INR) calculationOrdered By: Carlos Cavazos on 06-23-2024 INR Coag (Bld) [Relative time] 2.8 {INR} [facility] Prothrombin Time w/INRon INR Coag (PPP) [Relative time] 2.8 {INR} Normal [facility] Comment on above: Order Comment: 411-2 Performed By: #### L 300.3900 ####[facility] [address] [place], [address] PT Coag (PPP) [Time] 29.7 s High 11.7-14.9 [facility] Comment on above: Order Comment: 411-2 Performed By: #### L 300.3900 ####[facility] [address] [place], [address] Prothrombin timeOrdered By: Carlos Cavazos on 06-23-2024 PT Coag (PPP) [Time] 29.7 s High 11.7-14.9 [facility] International normalized rat io (INR) calculationOrdered By: Kvng Crisostomo on 06-19-2024 INR Coag (Bld) [Relative time] 2.6 {INR} [facility] Prothrombin Time w/INRon INR Coag (PPP) [Relative time] 2.6 {INR} Normal [facility] Comment on above: Order Comment: 411.2 Performed By: #### L 300.3900 ####[facility] [address] [place], [address] PT Coag (PPP) [Time] 28.6 s High 11.7-14.9 [facility] Comment on above: Order Comment: 411.2 Performed By: #### L 300.3900 ####[facility] [address] [place], [address] Prothrombin timeOrdered By: Kvng Crisostomo on 06-19-2024 PT Coag (PPP) [Time] 28.6 s High 11.7-14.9 [facility] International normalized rat io (INR) calculationOrdered By: Kvng Crisostomo on 06-16-2024 INR Coag (Bld) [Relative time] 2.5 {INR} [facility] Prothrombin Time w/INRon INR Coag (PPP) [Relative time] 2.5 {INR} Normal [facility] Comment on above: Order Comment: 411.2 Performed By: #### L 300.3900 ####[facility] [address] [place], [address] PT Coag (PPP) [Time] 27.3 s High 11.7-14.9 [facility] Comment on above: Order Comment: 411.2 Performed By: #### L 300.3900 ####[facility] [address] [place], [address] Prothrombin timeOrdered By: Kvng Crisostomo on 06-16-2024 PT Coag (PPP) [Time] 27.3 s High 11.7-14.9 [facility] International normalized rat io (INR) calculationOrdered By: Kvng Crisostomo on 06-12-2024 INR Coag (Bld) [Relative time] 2.1 {INR} [facility] Prothrombin Time w/INRon INR Coag (PPP) [Relative time] 2.1 {INR} Normal [facility] Comment on above: Order Comment: 411.2 Performed By: #### L 300.3900 ####[facility] [address] [place], [address] PT Coag (PPP) [Time] 24.0 s High 11.7-14.9 [facility] Comment on above: Order Comment: 411.2 Performed By: #### L 300.3900 ####[facility] [address] [place], [address] Prothrombin timeOrdered By: Kvng Crisostomo on 06-12-2024 PT Coag (PPP) [Time] 24.0 s High 11.7-14.9 [facility] International normalized rat io (INR) calculationOrdered By: Carlos Cavazos on 06-09-2024 INR Coag (Bld) [Relative time] 1.5 {INR} [facility] Prothrombin Time w/INRon INR Coag (PPP) [Relative time] 1.5 {INR} Normal [facility] Comment on above: Order Comment: 411-2 Performed By: #### L 300.3900 ####[facility] [address], [address] PT Coag (PPP) [Time] 18.0 s High 11.7-14.9 [facility] Comment on above: Order Comment: 411-2 Performed By: #### L 300.3900 ####[facility] [address], [address] Prothrombin timeOrdered By: Carlos Cavazos on 06-09-2024 PT Coag (PPP) [Time] 18.0 s High 11.7-14.9 [facility] [employer] normalized rat io (INR) calculationOrdered By: Kvng Crisostomo on 06-05-2024 INR Coag (Bld) [Relative time] 2.8 {INR} [facility] Prothrombin Time w/INRon INR Coag (PPP) [Relative time] 2.8 {INR} Normal [facility] Comment on above: Order Comment: 411.2 Performed By: #### L 300.3900 ####[facility] [address], [address] PT Coag (PPP) [Time] 30.3 s High 11.7-14.9 [facility] Comment on above: Order Comment: 411.2 Performed By: #### L 300.3900 ####[facility] [address] [place], [address] Prothrombin timeOrdered By: Kvng Crisostomo on 06-05-2024 PT Coag (PPP) [Time] 30.3 s High 11.7-14.9 [facility] International normalized rat io (INR) calculationOrdered By: Kvng Crisostomo on 06-02-2024 INR Coag (Bld) [Relative time] 2.6 {INR} [facility] Prothrombin Time w/INRon INR Coag (PPP) [Relative time] 2.6 {INR} Normal [facility] Comment on above: Order Comment: 411.2 Performed By: #### L 300.3900 ####[facility] [address] [place], [address] PT Coag (PPP) [Time] 28.6 s High 11.7-14.9 [facility] Comment on above: Order Comment: 411.2 Performed By: #### L 300.3900 ####[facility] [address] [facility] [address] Prothrombin timeOrdered By: Kvng Crisostomo on 06-02-2024 PT Coag (PPP) [Time] 28.6 s High 11.7-14.9 [facility] International normalized rat io (INR) calculationOrdered By: Kvng Crisostomo on 05-29-2024 INR Coag (Bld) [Relative time] 2.5 {INR} [facility] Prothrombin Time w/INRon INR Coag (PPP) [Relative time] 2.5 {INR} Normal [facility] Comment on above: Order Comment: 411.2 Performed By: #### L 300.3900 ####[facility] [address] [place], [address] PT Coag (PPP) [Time] 27.7 s High 11.7-14.9 [facility] Comment on above: Order Comment: 411.2 Performed By: #### L 300.3900 ####[facility] [address] [place], [address] Prothrombin timeOrdered By: Kvng Crisostomo on 05-29-2024 PT Coag (PPP) [Time] 27.7 s High 11.7-14.9 [facility] International normalized rat io (INR) calculationOrdered By: Carlos Cavazos on 05-26-2024 INR Coag (Bld) [Relative time] 2.2 {INR} [facility] Prothrombin Time w/INRon INR Coag (PPP) [Relative time] 2.2 {INR} Normal [facility] Comment on above: Order Comment: 411-2 Performed By: #### L 300.3900 ####[facility] [address] [place], [place], [phone] PT Coag (PPP) [Time] 24.5 s High 11.7-14.9 [facility] Comment on above: Order Comment: 411-2 Performed By: #### L 300.3900 ####[facility] [address] [place], [address] Prothrombin timeOrdered By: Carlos Cavazos on 05-26-2024 PT Coag (PPP) [Time] 24.5 s High 11.7-14.9 [facility] International normalized rat io (INR) calculationOrdered By: Kvng Crisostomo on 05-22-2024 INR Coag (Bld) [Relative time] 2.8 {INR} [facility] Prothrombin Time w/INRon INR Coag (PPP) [Relative time] 2.8 {INR} Normal [facility] Comment on above: Order Comment: 411.2 Performed By: #### L 300.3900 ####[facility] [address] [place], [place], [phone] PT Coag (PPP) [Time] 30.3 s High 11.7-14.9 [facility] Comment on above: Order Comment: 411.2 Performed By: #### L 300.3900 ####[facility] [address] [place], [address] Prothrombin timeOrdered By: Kvng Crisostomo on 05-22-2024 PT Coag (PPP) [Time] 30.3 s High 11.7-14.9 [facility] International normalized rat io (INR) calculationOrdered By: Kvng Crisostomo on 05-20-2024 INR Coag (Bld) [Relative time] 4.0 {INR} High [facility] Comment on above: CRITICAL VALUE CASEY D TO APEFASMLR56/14/25 08 Diana Srinivasan.RESULTS READ BACK BY SAME. Prothrombin Time w/INRon INR Coag (PPP) [Relative time] 4.0 {INR} Invalid Interpretation Code [facility] Comment on above: Order Comment: 411.2 Result Comment: CRIT ICAL VALUE CALLED TO DVZUWLWOM82/14/25 [facility] Diana Mattson.RESULTS READ BACK BY SAME. Performed By: #### L 300.3900 ####[facility] [address] [place], [place], [phone](301) PT Coag (PPP) [Time] 39.9 s High 11.7-14.9 [facility] Comment on above: Order Comment: 411.2 Performed By: #### L 300.3900 ####[facility] [address] [place], [place], [phone](364) Prothrombin timeOrdered By: Kvng Crisostomo on 05-20-2024 PT Coag (PPP) [Time] 39.9 s High 11.7-14.9 [facility] International normalized rat io (INR) calculationOrdered By: Kvng Crisostomo on 05-19-2024 INR Coag (Bld) [Relative time] 3.4 {INR} [facility] Prothrombin Time w/INRon INR Coag (PPP) [Relative time] 3.4 {INR} Normal [facility] Comment on above: Order Comment: 411.2 Performed By: #### L 300.3900 ####[facility] [address] [place], [place], [phone](399) PT Coag (PPP) [Time] 35.4 s High 11.7-14.9 [facility] Comment on above: Order Comment: 411.2 Performed By: #### L 300.3900 ####[facility] [address] [place], [place], [phone](570) Prothrombin timeOrdered By: Kvng Crisostomo on 05-19-2024 PT Coag (PPP) [Time] 35.4 s High 11.7-14.9 [facility] International normalized rat io (INR) calculationOrdered By: Kvng Crisostomo on 05-15-2024 INR Coag (Bld) [Relative time] 2.6 {INR} [facility] Prothrombin Time w/INRon INR Coag (PPP) [Relative time] 2.6 {INR} Normal [facility] Comment on above: Order Comment: 411.2 Performed By: #### L 300.3900 ####[facility] [address] [place], [place], [phone] PT Coag (PPP) [Time] 28.7 s High 11.7-14.9 [facility] Comment on above: Order Comment: 411.2 Performed By: #### L 300.3900 ####[facility] [address] [place], [address] Prothrombin timeOrdered By: Kvng Crisostomo on 05-15-2024 PT Coag (PPP) [Time] 28.7 s High 11.7-14.9 [facility] International normalized rat io (INR) calculationOrdered By: Carlos Cavazos on 05-12-2024 INR Coag (Bld) [Relative time] 2.1 {INR} [facility] Prothrombin Time w/INRon INR Coag (PPP) [Relative time] 2.1 {INR} Normal [facility] Comment on above: Order Comment: 411-2 Performed By: #### L 300.3900 ####[facility] [address] [place], [address] PT Coag (PPP) [Time] 24.1 s High 11.7-14.9 [facility] Comment on above: Order Comment: 411-2 Performed By: #### L 300.3900 ####[facility] [address] [place], [place], [phone] Prothrombin timeOrdered By: Carlos Cavazos on 05-12-2024 PT Coag (PPP) [Time] 24.1 s High 11.7-14.9 [facility] International normalized rat io (INR) calculationOrdered By: Kvng Crisostomo on 05-09-2024 INR Coag (Bld) [Relative time] 3.4 {INR} [facility] Prothrombin Time w/INRon INR Coag (PPP) [Relative time] 3.4 {INR} Normal [facility] Comment on above: Order Comment: 411.2 Performed By: #### L 300.3900 ####[facility] [address] [place], [place], [phone](607 PT Coag (PPP) [Time] 35.4 s High 11.7-14.9 [facility] Comment on above: Order Comment: 411.2 Performed By: #### L 300.3900 ####[facility] [address] [place], [place], [phone] Prothrombin timeOrdered By: Kvng Crisostomo on 05-09-2024 PT Coag (PPP) [Time] 35.4 s High 11.7-14.9 [facility] [employer] normalized rat io (INR) calculationOrdered By: Kvng Crisostomo on 05-08-2024 INR Coag (Bld) [Relative time] 4.1 {INR} High [facility] Comment on above: CRITICAL VALUE CASEY D TO [facility]05/08/24 0950 Karen Jamison.RESULTS READ BACK BY SAME. Prothrombin Time w/INRon INR Coag (PPP) [Relative time] 4.1 {INR} Invalid Interpretation Code [facility] Comment on above: Order Comment: 411.2 Result Comment: CRIT ICAL VALUE CALLED TO [facility]05/08/24 0950 Karen Jamison.RESULTS READ BACK BY SAME. Performed By: #### L 300.3900 ####[facility] [address] [place], [address] PT Coag (PPP) [Time] 40.8 s High 11.7-14.9 [facility] Comment on above: Order Comment: 411.2 Performed By: #### L 300.3900 ####[facility] [address] [place], [address] Prothrombin timeOrdered By: Babbaljeet Andressa on 05-08-2024 PT Coag (PPP) [Time] 40.8 s High 11.7-14.9 [facility] International normalized rat io (INR) calculationOrdered By: Babbaljeet Crisostomo on 05-05-2024 INR Coag (Bld) [Relative time] 3.2 {INR} [facility] Prothrombin Time w/INRon INR Coag (PPP) [Relative time] 3.2 {INR} Normal [facility] Comment on above: Order Comment: 411.2 Performed By: #### L 300.3900 ####[facility] [address] [place], [address] PT Coag (PPP) [Time] 32.5 s High 11.7-14.9 [facility] Comment on above: Order Comment: 411.2 Performed By: #### L 300.3900 ####[facility] [address] [place], [address] Prothrombin timeOrdered By: Babbaljeet Crisostomo on 05-05-2024 PT Coag (PPP) [Time] 32.5 s High 11.7-14.9 [facility] normalized rat io (INR) calculationOrdered By: Babbaljeet Crisostomo on 05-01-2024 INR Coag (Bld) [Relative time] 3.1 {INR} [facility] Prothrombin Time w/INRon INR Coag (PPP) [Relative time] 3.1 {INR} Normal [facility] Comment on above: Order Comment: 411.2 Performed By: #### L 300.3900 ####[facility] [address] [place], [address] PT Coag (PPP) [Time] 31.9 s High 11.7-14.9 [facility] Comment on above: Order Comment: 411.2 Performed By: #### L 300.3900 ####[facility] [address] [place], [address] Prothrombin timeOrdered By: Kvng Crisostomo on 05-01-2024 PT Coag (PPP) [Time] 31.9 s High 11.7-14.9 [facility] International normalized rat io (INR) calculationOrdered By: Carlos Cavazos on 04-28-2024 INR Coag (Bld) [Relative time] 2.6 {INR} [facility] Prothrombin Time w/INRon INR Coag (PPP) [Relative time] 2.6 {INR} Normal [facility] Comment on above: Order Comment: 411-2 Performed By: #### L 300.3900 ####[facility] [address] [place], [address] PT Coag (PPP) [Time] 27.3 s High 11.7-14.9 [facility] Comment on above: Order Comment: 411-2 Performed By: #### L 300.3900 ####[facility] [address] [place], [address] Prothrombin timeOrdered By: Carlos Cavazos on 04-28-2024 PT Coag (PPP) [Time] 27.3 s High 11.7-14.9 [facility] normalized rat io (INR) calculationOrdered By: Kvng Crisostomo on 04-24-2024 INR Coag (Bld) [Relative time] 3.6 {INR} [facility] Prothrombin Time w/INRon INR Coag (PPP) [Relative time] 3.6 {INR} Normal [facility] Comment on above: Order Comment: 411.2 Performed By: #### L 300.3900 ####[facility] [address] [place], [address] PT Coag (PPP) [Time] 35.6 s High 11.7-14.9 [facility] Comment on above: Order Comment: 411.2 Performed By: #### L 300.3900 ####[facility] [address] [place], [address] Prothrombin timeOrdered By: Kvng Crisostomo on 04-24-2024 PT Coag (PPP) [Time] 35.6 s High 11.7-14.9 [facility] [employer] normalized rat io (INR) calculationOrdered By: Carlso Cavazos on 04-21-2024 INR Coag (Bld) [Relative time] 2.8 {INR} [facility] Prothrombin Time w/INRon INR Coag (PPP) [Relative time] 2.8 {INR} Normal [facility] Comment on above: Order Comment: 411-2 Performed By: #### L 300.3900 ####[facility] [address] [place], [address] PT Coag (PPP) [Time] 29.4 s High 11.7-14.9 [facility] Comment on above: Order Comment: 411-2 Performed By: #### L 300.3900 ####[facility] [address] [place], [address] Prothrombin timeOrdered By: Carlos Cavazos on 04-21-2024 PT Coag (PPP) [Time] 29.4 s High 11.7-14.9 [facility] International normalized rat io (INR) calculationOrdered By: Kvng Crisostomo on 04-17-2024 INR Coag (Bld) [Relative time] 3.1 {INR} [facility] Prothrombin Time w/INRon INR Coag (PPP) [Relative time] 3.1 {INR} Normal [facility] Comment on above: Order Comment: 411.2 Performed By: #### L 300.3900 ####[facility] [address] [place], [place], [phone](298) Prothrombin timeOrdered By: Kvng Crisostomo on 04-17-2024 PT Coag (PPP) [Time] 31.3 s High 11.7-14.9 [facility] Comment on above: Order Comment: 411.2 Performed By: #### L 300.3900 ####[facility] [address] [place], [place], [phone](485) International normalized rat io (INR) calculationOrdered By: Kvng Crisostomo on 04-14-2024 INR Coag (Bld) [Relative time] 3.3 {INR} [facility] Prothrombin Time w/INRon INR Coag (PPP) [Relative time] 3.3 {INR} Normal [facility] Comment on above: Order Comment: 411.2 Performed By: #### L 300.3900 ####[facility] [address] [place], [place], [phone](269) PT Coag (PPP) [Time] 33.2 s High 11.7-14.9 [facility] Comment on above: Order Comment: 411.2 Performed By: #### L 300.3900 ####[facility] [address] [place], [place], [phone](913) Prothrombin timeOrdered By: Kvng Crisostomo on 04-14-2024 PT Coag (PPP) [Time] 33.2 s High 11.7-14.9 [facility] normalized rat io (INR) calculationOrdered By: Kvng Crisostomo on 04-10-2024 INR Coag (Bld) [Relative time] 2.8 {INR} [facility] Prothrombin Time w/INRon INR Coag (PPP) [Relative time] 2.8 {INR} Normal [facility] Comment on above: Order Comment: 411.2 Performed By: #### L 300.3900 ####[facility] [address] [place], [address] PT Coag (PPP) [Time] 29.2 s High 11.7-14.9 [facility] Comment on above: Order Comment: 411.2 Performed By: #### L 300.3900 ####[facility] [address] [place], [address] Prothrombin timeOrdered By: Kvng Crisostomo on 04-10-2024 PT Coag (PPP) [Time] 29.2 s High 11.7-14.9 [facility] [employer] normalized rat io (INR) calculationOrdered By: Carlos Cavazos on 04-07-2024 INR Coag (Bld) [Relative time] 2.7 {INR} [facility] Prothrombin Time w/INRon INR Coag (PPP) [Relative time] 2.7 {INR} Normal [facility] Comment on above: Order Comment: 411-2 Performed By: #### L 300.3900 ####[facility] [address] [place], [address] PT Coag (PPP) [Time] 28.1 s High 11.7-14.9 [facility] Comment on above: Order Comment: 411-2 Performed By: #### L 300.3900 ####[facility] [address] [place], [address] Prothrombin timeOrdered By: Carlos Cavazos on 04-07-2024 PT Coag (PPP) [Time] 28.1 s High 11.7-14.9 [facility] [employer] normalized rat io (INR) calculationOrdered By: Kvng Crisostomo on 04-04-2024 INR Coag (Bld) [Relative time] 2.8 {INR} [facility] Prothrombin Time w/INRon INR Coag (PPP) [Relative time] 2.8 {INR} Normal [facility] Comment on above: Order Comment: 411.2 Performed By: #### L 300.3900 ####[facility] [address] [place], [address] PT Coag (PPP) [Time] 28.9 s High 11.7-14.9 [facility] Comment on above: Order Comment: 411.2 Performed By: #### L 300.3900 ####[facility] [address] [place], [address] Prothrombin timeOrdered By: Kvng Crisostomo on 04-04-2024 PT Coag (PPP) [Time] 28.9 s High 11.7-14.9 [facility] [employer] normalized rat io (INR) calculationOrdered By: Carlos Cavazos on 03-31-2024 INR Coag (Bld) [Relative time] 2.6 {INR} [facility] Prothrombin Time w/INRon INR Coag (PPP) [Relative time] 2.6 {INR} Normal [facility] Comment on above: Order Comment: 411-2 Performed By: #### L 300.3900 ####[facility] [address] [place], [address] PT Coag (PPP) [Time] 27.3 s High 11.7-14.9 [facility] Comment on above: Order Comment: 411-2 Performed By: #### L 300.3900 ####[facility] [address] [place], [address] Prothrombin timeOrdered By: Carlos Cavazos on 03-31-2024 PT Coag (PPP) [Time] 27.3 s High 11.7-14.9 [facility] [employer] normalized rat io (INR) calculationOrdered By: [employer] on 03-27-2024 INR Coag (Bld) [Relative time] 2.2 {INR} [facility] Prothrombin Time w/INRon INR Coag (PPP) [Relative time] 2.2 {INR} Normal [facility] Comment on above: Order Comment: 411.2 Performed By: #### L 300.3900 ####[facility] [address] [place], [address] PT Coag (PPP) [Time] 24.3 s High 11.7-14.9 [facility] Comment on above: Order Comment: 411.2 Performed By: #### L 300.3900 ####[facility] [address] [place], [address] Prothrombin timeOrdered By: [employer] on 03-27-2024 PT Coag (PPP) [Time] 24.3 s High 11.7-14.9 [facility] [employer] normalized rat io (INR) calculationOrdered By: Kvng Crisostomo on 03-24-2024 INR Coag (Bld) [Relative time] 1.8 {INR} [facility] Prothrombin Time w/INRon INR Coag (PPP) [Relative time] 1.8 {INR} Normal [facility] Comment on above: Order Comment: 411.2 Performed By: #### L 300.3900 ####[facility] [address] [place], [address] PT Coag (PPP) [Time] 20.7 s High 11.7-14.9 [facility] Comment on above: Order Comment: 411.2 Performed By: #### L 300.3900 ####[facility] [address] [place], [address] Prothrombin timeOrdered By: Kvng Crisostomo on 03-24-2024 PT Coag (PPP) [Time] 20.7 s High 11.7-14.9 [facility] [employer] normalized rat io (INR) calculationOrdered By: [employer] on 03-20-2024 INR Coag (Bld) [Relative time] 1.8 {INR} [facility] Prothrombin Time w/INRon INR Coag (PPP) [Relative time] 1.8 {INR} Normal [facility] Comment on above: Order Comment: 411.2 Performed By: #### L 300.3900 ####[facility] [address] [place], [address] PT Coag (PPP) [Time] 20.9 s High 11.7-14.9 [facility] Comment on above: Order Comment: 411.2 Performed By: #### L 300.3900 ####[facility] [address] [place], [address] Prothrombin timeOrdered By: [employer] on 03-20-2024 PT Coag (PPP) [Time] 20.9 s High 11.7-14.9 [facility] [employer] normalized rat io (INR) calculationOrdered By: Kvng Crisostomo on 03-19-2024 INR Coag (Bld) [Relative time] 2.4 {INR} [facility] Prothrombin Time w/INRon INR Coag (PPP) [Relative time] 2.4 {INR} Normal [facility] Comment on above: Order Comment: 411.2 Performed By: #### L 300.3900 ####[facility] [address] [place], [address] PT Coag (PPP) [Time] 26.4 s High 11.7-14.9 [facility] Comment on above: Order Comment: 411.2 Performed By: #### L 300.3900 ####[facility] [address] [place], [address] Prothrombin timeOrdered By: Kvng Crisostomo on 03-19-2024 PT Coag (PPP) [Time] 26.4 s High 11.7-14.9 [facility] [employer] normalized rat io (INR) calculationOrdered By: [employer] on 03-18-2024 INR Coag (Bld) [Relative time] 3.2 {INR} [facility] Prothrombin timeOrdered By: [employer] on 03-18-2024 PT Coag (PPP) [Time] 32.3 s High 11.7-14.9 [facility] [employer] normalized rat io (INR) calculationOrdered By: [employer] on 03-17-2024 INR Coag (Bld) [Relative time] 3.6 {INR} [facility] Prothrombin timeOrdered By: [employer] on 03-17-2024 PT Coag (PPP) [Time] 35.7 s High 11.7-14.9 [facility] [employer] normalized rat io (INR) calculationOrdered By: Carlos Cavazos on 03-14-2024 INR Coag (Bld) [Relative time] 3.5 {INR} [facility] Prothrombin timeOrdered By: Carlos Cavazos on 03-14-2024 PT Coag (PPP) [Time] 35.0 s High 11.7-14.9 [facility] normalized rat io (INR) calculationOrdered By: [employer] on 03-13-2024 INR Coag (Bld) [Relative time] 3.2 {INR} [facility] Prothrombin timeOrdered By: [employer] on 03-13-2024 PT Coag (PPP) [Time] 32.2 s High 11.7-14.9 [facility] Office Visiton 09-13-2023 Follow-up visit [id number] GurpreetTamie 1950 [address] Provider Department Center 09/13/2023 [id number] BUCK [facility] None Family History Problem Relation Age of Onset Heart disease Father Cancer Mother Family Status - Relation Status Age at Father Mother Level of Service:99171 [place] OFFICE/OUTPATIENT ESTABLISHED MOD MDM 30 MIN Reason for Visit and Comments: left flank pain [Other] - 8/10 pain when touched Normal [facility] Progress Noteon 09-13-2023 Progress Note [...] Hydrocephalus, adult (CMS/HCC) (HCC) Kidney stone Neuropathy BEVELER (ventriculoperitoneal) shunt status Past Surgical History: Procedure [...] 03/02/2022 CR (more content not included)... Normal [facility] CT ABDOMEN PELVIS WO IV CONT Kelly 09-07-2023 CT ABDOMEN PELVIS WO IV CONTRAST Patient Name[facility]W [facility]ENT[facility] 1950 [id number] Exam Date/Time: 09/06/2023 18:14 Procedure: CT ABDOMEN [...] a kidney stone; pt has a hernia [place] [id number] 36 Lm on daughters vm t o advise them to call the number for the retail property manager to get clarification, and to call back with further questions [place] [id number] 36 Yes, they will need to call the number given to them. [facility] 36 Please advise [address] 08-21-2023 36 Name of caller: Zion holt Contact phone number: [phone] Relationship to Patient: patient Provider: MD Quinn Practice: [facility] Chief Complaint/Reason for Call: [...] to reach out to call Maury Cedeño Cable Installation Technician at [facility] [phone] to get clarifications. TEA did reach back out to [facility] and advised and provider Maury's #. Please advise Best time of day caller can be reached: Any Patient advised that office/PCP has 24-48 business hours to return their call: N/A Normal [facility] Laboratory - CoagulationOrde red By: Carlos Cavazos on 08-21-2023 INR Coag (Bld) [Relative time] 2.7 {INR} [facility] PT Coag (PPP) [Time] 28.9 s 11.7-14.9 [facility] Office Visiton 08-13-2023 Follow-up visit [id number] Tamie Sifuentes cheng R 1950 M [place] Provider Department Center 08/13/2023 [id number] BUCK [facility] None Family History Problem Relation Age of Onset Heart disease Father Cancer Mother Family Status - Relation Status Age at Father Mother Level of Service:04424 [place] OFFICE/OUTPATIENT NEW MODERATE MDM 45 MINUTES Reason for Visit and Comments: New Patient [542] - Bilateral flank pain, hx of kidney stones Nephrolithiasis [222413] Normal [facility] Progress Noteon 08-13-2023 Progress Note [...] Hydrocephalus, adult (CMS/HCC) (HCC) Kidney stone Neuropathy BEVELER (ventriculoperitoneal) shunt status Past Surgical History: Past [...] CT ab (more content not included)... Normal [facility] No Panel InformationOrdered By: Carlos Cavazos on 08-03-2023 Levetiracetam (Keppra) Level 32.4 ug/mL 10.0-40.0 [facility] Comment on above: Performed at: [address] [id number] Director: Alpesh Vázquez MD, Phone: [phone] Basophil percentageOrdered B y: Carlso Cavazos on 07-20-2023 Chloride [Moles/Vol] 106 mmol/L 98-107 [facility] Glucose [Mass/Vol] 98 mg/dL 74-106 [facility] Hemoglobin (Bld) [Mass/Vol] 12.5 g/dL 13.0-16.5 [facility] Potassium [Moles/Vol] 4.3 mmol/L 3.5-5.1 [facility] Sodium [Moles/Vol] 135 mmol/L 136-145 [facility] WBC (Bld) [#/Vol] 13.0 10*3/uL 4.4-11.0 [facility] Determination of erythrocyte mean corpuscular volume (MCV)Ordered By: Carlos Cavazos on 07-20-2023 MCV (RBC) [Entitic vol] 86.2 fL 80-94 [facility] Erythrocyte distribution wid th ratioOrdered By: Carlos Cavazos on 07-20-2023 Erythrocyte distribution width (RBC) [Ratio] 15.3 % 11.6-14.6 [facility] Erythrocyte distribution wid th standard deviationOrdered By: Carlos Cavazos on 07-20-2023 Erythrocyte distribution width (RBC) [Entitic vol] 48.1 fL 35.1-43.9 [facility] Hematocrit Auto (Bld) [Volum e fraction]Ordered By: Carlos Cavazos on 07-20-2023 Hematocrit (Bld) [Volume fraction] 39.9 % 40-54 [facility] Laboratory - Chemistry and C hemistry - challengeOrdered By: Carlos Cavazos on 07-20-2023 CO2 [Moles/Vol] 24.0 mmol/L 21.0-32.0 [facility] Urea nitrogen/Creatinine [Mass ratio] 24.6 mg/mg 10-20 [facility] Laboratory - Hematology and Cell countsOrdered By: Carlos Cavazos on 07-20-2023 MCH (RBC) [Entitic mass] 27.0 pg 27.0-32.0 [facility] MCHC (RBC) [Mass/Vol] 31.3 g/dL 32-36 [facility] Platelet mean volume (Bld) [Entitic vol] 10.7 fL 6.2-12.0 [facility] Platelets (Bld) [#/Vol] 260 10*3/uL 150-450 [facility] No Panel InformationOrdered By: Carlos Cavazos on 07-20-2023 Estimated GFR (MDRD) Amer 114 mL/min >60 [facility] Comment on above: GFR Calc Estimated GFR (MDRD) Non-Af Amer 94 mL/min >60 [facility] Comment on above: Non- GFR Calc RBC Auto (Bld) [#/Vol]Ordere d By: Carlos Cavazos on 07-20-2023 RBC (Bld) [#/Vol] 4.63 10*6/uL 4.6-6.2 [facility] Serum or plasma calcium oral urement (mass/volume)Ordered By: Carlos Cavazos on 07-20-2023 Calcium [Mass/Vol] 8.6 mg/dL 8.5-10.1 [facility] Serum or plasma creatinine m easurement (mass/volume)Ordered By: Carlos Cavazos on 07-20-2023 Creatinine [Mass/Vol] 0.85 mg/dL 0.70-1.30 [facility] Comment on above: The validity of the calculated GFR & GFRAA in patients over 70 years has not been determined. Clinical correlation is essential. Serum or plasma urea nitroge n measurement (mass/volume)Ordered By: Carlos Cavazos on 07-20-2023 Urea nitrogen [Mass/Vol] 21 mg/dL 7-18 [facility] Thin prep Papanicolaou smear with manual screeningOrdered By: Carlos Cavazos on 07-20-2023 Thin prep Papanicolaou smear with manual screening 5 5-15 [facility] Basophil percentageOrdered B y: Carlos Cavazos on 07-18-2023 Chloride [Moles/Vol] 102 mmol/L 98-107 [facility] Glucose [Mass/Vol] 96 mg/dL 74-106 [facility] Hemoglobin (Bld) [Mass/Vol] 12.3 g/dL 13.0-16.5 [facility] Potassium [Moles/Vol] 4.2 mmol/L 3.5-5.1 [facility] Sodium [Moles/Vol] 136 mmol/L 136-145 [facility] WBC (Bld) [#/Vol] 14.7 10*3/uL 4.4-11.0 [facility] Determination of erythrocyte mean corpuscular volume (MCV)Ordered By: Carlos Cavazos on 07-18-2023 MCV (RBC) [Entitic vol] 85.4 fL 80-94 [facility] Erythrocyte distribution wid th ratioOrdered By: Carlos Cavazos on 07-18-2023 Erythrocyte distribution width (RBC) [Ratio] 15.1 % 11.6-14.6 [facility] Erythrocyte distribution wid th standard deviationOrdered By: Carlos Cavazos on 07-18-2023 Erythrocyte distribution width (RBC) [Entitic vol] 47.3 fL 35.1-43.9 [facility] Hematocrit Auto (Bld) [Volum e fraction]Ordered By: Carlos Cavazos on 07-18-2023 Hematocrit (Bld) [Volume fraction] 39.3 % 40-54 [facility] Laboratory - Chemistry and C hemistry - challengeOrdered By: Carlos Cavazos on 07-18-2023 CO2 [Moles/Vol] 27.0 mmol/L 21.0-32.0 [facility] Urea nitrogen/Creatinine [Mass ratio] 24.4 mg/mg 10-20 [facility] Laboratory - Hematology and Cell countsOrdered By: Carlos Cavazos on 07-18-2023 MCH (RBC) [Entitic mass] 26.7 pg 27.0-32.0 [facility] MCHC (RBC) [Mass/Vol] 31.3 g/dL 32-36 [facility] Platelet mean volume (Bld) [Entitic vol] 10.3 fL 6.2-12.0 [facility] Platelets (Bld) [#/Vol] 288 10*3/uL 150-450 [facility] No Panel InformationOrdered By: Carlos Cavazos on 07-18-2023 Estimated GFR (MDRD) Amer 113 mL/min >60 [facility] Comment on above: GFR Calc Estimated GFR (MDRD) Non-Af Amer 93 mL/min >60 [facility] Comment on above: Non- GFR Calc RBC Auto (Bld) [#/Vol]Ordere d By: Carlos Cavazos on 07-18-2023 RBC (Bld) [#/Vol] 4.60 10*6/uL 4.6-6.2 [facility] Serum or plasma calcium oral urement (mass/volume)Ordered By: Carlos Cavazos on 07-18-2023 Calcium [Mass/Vol] 8.9 mg/dL 8.5-10.1 [facility] Serum or plasma creatinine m easurement (mass/volume)Ordered By: Carlos Cavazos on 07-18-2023 Creatinine [Mass/Vol] 0.86 mg/dL 0.70-1.30 [facility] Comment on above: The validity of the calculated GFR & GFRAA in patients over 70 years has not been determined. Clinical correlation is essential. Serum or plasma urea nitroge n measurement (mass/volume)Ordered By: Carlos Cavazos on 07-18-2023 Urea nitrogen [Mass/Vol] 21 mg/dL 7-18 [facility] Thin prep Papanicolaou smear with manual screeningOrdered By: Carlos Cavazos on 07-18-2023 Thin prep Papanicolaou smear with manual screening 7 5-15 [facility] Basophil percentageOrdered B y: Carlos Cavazos on 07-17-2023 Basophil percentage 0-5 SEEN /hpf 0-5 [facility] Bilirubin Test strip Ql (U)O rdered By: Carlos Cavazos on 07-17-2023 Bilirubin Ql (U) Negative Negative [facility] Calcium oxalate crystals det ection in urine sediment by light microscopyOrdered By: Carlos Cavazos on 07-17-2023 Calcium oxalate crystals LM Ql (Urine sed) 1+ /hpf [facility] Culture, urineOrdered By: Sharif Crouch on 07-17-2023 Bacteria identified Cx Nom (U) Positive [facility] Ketones Test strip Ql (U)Ord ered By: Carlos Cavazos on 07-17-2023 Ketones Ql (U) Negative Negative [facility] Mucus LM Ql (Urine sed)Order ed By: Carlos Cavazos on 07-17-2023 Mucus Ql (Urine sed) 0 SEEN /hpf [facility] Nitrite Test strip Ql (U)Ord ered By: Carlos Cavazos on 07-17-2023 Nitrite Ql (U) Negative Negative [facility] No Panel InformationOrdered By: Carlos Cavazos on 07-17-2023 Urine RBC 0 SEEN /hpf 0-5 [facility] Protein Test strip Ql (U)Ord ered By: Carlos Cavazos on 07-17-2023 Protein Ql (U) Negative Negative [facility] Squamous epithelial cells de tection in urine sediment by light microscopyOrdered By: Carlos Cavazos on 07-17-2023 Epithelial cells.squamous LM Ql (Urine sed) 0-5 SEEN /hpf 0-5 [facility] Urine blood detectionOrdered By: Carlos Cavazos on 07-17-2023 RBC Ql (U) Negative Negative [facility] Urine clarityOrdered By: Ted Cavazos on 07-17-2023 Clarity (U) Clear Clear [facility] Urine color determinationOrd ered By: Carlos Cavazos on 07-17-2023 Color (U) Yellow Yellow [facility] Urine glucose detectionOrder ed By: Carlos Cavazos on 07-17-2023 Glucose Ql (U) Normal mg/dl Normal [facility] Urine leukocyte esterase det ection by dipstickOrdered By: Carlos Cavazos on 07-17-2023 Leukocyte esterase Test strip Ql (U) 25 /ul Negative [facility] Urine pHOrdered By: Carlos flores on 07-17-2023 pH (U) 6.0 [pH] 5.0 - 8.0 [facility] Urine sediment bacteria coun t by microscopy (number/high power field)Ordered By: Carlos Cavazos on 07-17-2023 Bacteria LM.HPF (Urine sed) [#/Area] 0 /[HPF] None Seen [facility] Urine specific gravity measu rementOrdered By: Carlos Cavazos on 07-17-2023 Specific gravity (U) [Rel density] 1.020 1.002-1.030 [facility] Urine urobilinogen measureme ntOrdered By: Carlos Cavazos on 07-17-2023 Urobilinogen Ql (U) Normal mg/dl Normal [facility] Absolute lymphocyte countOrd ered By: Carlos Cavazos on 07-16-2023 Lymphocytes Auto (Unsp spec) [#/Vol] 6.02 10*3/uL 0.83-4.51 [facility] Automated lymphocyte count a s percentage of total leukocytesOrdered By: Carlos Cavazos on 07-16-2023 Lymphocytes/100 WBC Auto (Unsp spec) 49.1 % 19-41 [facility] Basophil percentageOrdered B y: Carlos Cavazos on 07-16-2023 Basophils/100 WBC (Bld) 0.6 % 0-1 [facility] Chloride [Moles/Vol] 105 mmol/L 98-107 [facility] Eosinophils/100 WBC (Bld) 2.0 % 0-5 [facility] Glucose [Mass/Vol] 93 mg/dL 74-106 [facility] Hemoglobin (Bld) [Mass/Vol] 12.1 g/dL 13.0-16.5 [facility] Monocytes/100 WBC (Bld) 5.3 % 0-10 [facility] Neutrophils (Bld) [#/Vol] 5.2 10*3/uL 2.0-7.7 [facility] Neutrophils/100 WBC (Bld) 42.8 % 47-70 [facility] Potassium [Moles/Vol] 4.3 mmol/L 3.5-5.1 [facility] Sodium [Moles/Vol] 138 mmol/L 136-145 [facility] WBC (Bld) [#/Vol] 12.3 10*3/uL 4.4-11.0 [facility] Blood manual differential co mment interpretation (narrative result)Ordered By: Carlos Cavazos on 07-16-2023 Manual differential comment Shemar (Bld) [Interp] SCANNED [facility] Determination of erythrocyte mean corpuscular volume (MCV)Ordered By: Carlos Cavazos on 07-16-2023 MCV (RBC) [Entitic vol] 86.8 fL 80-94 [facility] Erythrocyte distribution wid th ratioOrdered By: Carlos Cavazos on 07-16-2023 Erythrocyte distribution width (RBC) [Ratio] 15.3 % 11.6-14.6 [facility] Erythrocyte distribution wid th standard deviationOrdered By: Carlos Cavazos on 07-16-2023 Erythrocyte distribution width (RBC) [Entitic vol] 48.9 fL 35.1-43.9 [facility] Hematocrit Auto (Bld) [Volum e fraction]Ordered By: Carlos Cavazos on 07-16-2023 Hematocrit (Bld) [Volume fraction] 38.7 % 40-54 [facility] Immature granulocytes/100 WB C Auto (Bld)Ordered By: Carlos Cavazos on 07-16-2023 Immature granulocytes/100 WBC (Bld) 0.200 % 0.0-0.9 [facility] Comment on above: IG% - Immature Granu locytes (promyelocytes, myelocytes and metamyelocytes) > 1% indicates that a LEFT SHIFT is Present. Laboratory - Chemistry and C hemistry - challengeOrdered By: Carlos Cavazos on 07-16-2023 CO2 [Moles/Vol] 25.0 mmol/L 21.0-32.0 [facility] Urea nitrogen/Creatinine [Mass ratio] 21.0 mg/mg 10-20 [facility] Laboratory - CoagulationOrde red By: Carlos Cavazos on 07-16-2023 INR Coag (Bld) [Relative time] 2.4 {INR} [facility] PT Coag (PPP) [Time] 25.7 s 11.7-14.9 [facility] Laboratory - Hematology and Cell countsOrdered By: Carlos Cavazos on 07-16-2023 MCH (RBC) [Entitic mass] 27.1 pg 27.0-32.0 [facility] MCHC (RBC) [Mass/Vol] 31.3 g/dL 32-36 [facility] Nucleated RBC/100 WBC (Bld) [Ratio] 0 % 0-5 [facility] Platelet mean volume (Bld) [Entitic vol] 10.5 fL 6.2-12.0 [facility] Platelets (Bld) [#/Vol] 289 10*3/uL 150-450 [facility] No Panel InformationOrdered By: Carlos Cavazos on 07-16-2023 Estimated GFR (MDRD) Amer 106 mL/min >60 [facility] Comment on above: GFR Calc Estimated GFR (MDRD) Non-Af Amer 88 mL/min >60 [facility] Comment on above: Non- GFR Calc Reactive Lymphocytes 1+ [facility] RBC Auto (Bld) [#/Vol]Ordere d By: Carlos Cavazos on 07-16-2023 RBC (Bld) [#/Vol] 4.46 10*6/uL 4.6-6.2 [facility] Serum or plasma calcium oral urement (mass/volume)Ordered By: Carlos Cavazos on 07-16-2023 Calcium [Mass/Vol] 9.0 mg/dL 8.5-10.1 [facility] Serum or plasma creatinine m easurement (mass/volume)Ordered By: Carlos Cavazos on 07-16-2023 Creatinine [Mass/Vol] 0.90 mg/dL 0.70-1.30 [facility] Comment on above: The validity of the calculated GFR & GFRAA in patients over 70 years has not been determined. Clinical correlation is essential. Serum or plasma urea nitroge n measurement (mass/volume)Ordered By: Carlos Cavazos on 07-16-2023 Urea nitrogen [Mass/Vol] 19 mg/dL 7-18 [facility] Thin prep Papanicolaou smear with manual screeningOrdered By: Carlos Cavazos on 07-16-2023 Thin prep Papanicolaou smear with manual screening 8 5-15 [facility] Absolute lymphocyte countOrd ered By: Carlos Cavazos on 07-13-2023 Lymphocytes Auto (Unsp spec) [#/Vol] 5.44 10*3/uL 0.83-4.51 [facility] Automated lymphocyte count a s percentage of total leukocytesOrdered By: Carlos Cavazos on 07-13-2023 Lymphocytes/100 WBC Auto (Unsp spec) 47.3 % 19-41 [facility] Basophil percentageOrdered B y: Carlos Cavazos on 07-13-2023 Basophils/100 WBC (Bld) 0.4 % 0-1 [facility] Chloride [Moles/Vol] 107 mmol/L 98-107 [facility] Eosinophils/100 WBC (Bld) 1.7 % 0-5 [facility] Glucose [Mass/Vol] 96 mg/dL 74-106 [facility] Hemoglobin (Bld) [Mass/Vol] 13.5 g/dL 13.0-16.5 [facility] Monocytes/100 WBC (Bld) 4.3 % 0-10 [facility] Neutrophils (Bld) [#/Vol] 5.3 10*3/uL 2.0-7.7 [facility] Neutrophils/100 WBC (Bld) 46.0 % 47-70 [facility] Potassium [Moles/Vol] 4.0 mmol/L 3.5-5.1 [facility] Sodium [Moles/Vol] 139 mmol/L 136-145 [facility] WBC (Bld) [#/Vol] 11.5 10*3/uL 4.4-11.0 [facility] Determination of erythrocyte mean corpuscular volume (MCV)Ordered By: Carlos Cavazos on 07-13-2023 MCV (RBC) [Entitic vol] 86.1 fL 80-94 [facility] Erythrocyte distribution wid th ratioOrdered By: Carlos Cavazos on 07-13-2023 Erythrocyte distribution width (RBC) [Ratio] 15.2 % 11.6-14.6 [facility] Erythrocyte distribution wid th standard deviationOrdered By: Carlos Cavazos on 07-13-2023 Erythrocyte distribution width (RBC) [Entitic vol] 48.0 fL 35.1-43.9 [facility] Hematocrit Auto (Bld) [Volum e fraction]Ordered By: Carlos Cavazos on 07-13-2023 Hematocrit (Bld) [Volume fraction] 42.2 % 40-54 [facility] Immature granulocytes/100 WB C Auto (Bld)Ordered By: Carlos Cavazos on 07-13-2023 Immature granulocytes/100 WBC (Bld) 0.300 % 0.0-0.9 [facility] Comment on above: IG% - Immature Granu locytes (promyelocytes, myelocytes and metamyelocytes) > 1% indicates that a LEFT SHIFT is Present. Laboratory - Chemistry and C hemistry - challengeOrdered By: Carlos Cavazos on 07-13-2023 CO2 [Moles/Vol] 26.0 mmol/L 21.0-32.0 [facility] Urea nitrogen/Creatinine [Mass ratio] 21.8 mg/mg 10-20 [facility] Laboratory - Hematology and Cell countsOrdered By: Carlos Cavazos on 07-13-2023 MCH (RBC) [Entitic mass] 27.6 pg 27.0-32.0 [facility] MCHC (RBC) [Mass/Vol] 32.0 g/dL 32-36 [facility] Nucleated RBC/100 WBC (Bld) [Ratio] 0 % 0-5 [facility] Platelet mean volume (Bld) [Entitic vol] 10.1 fL 6.2-12.0 [facility] Platelets (Bld) [#/Vol] 279 10*3/uL 150-450 [facility] No Panel InformationOrdered By: Carlos Cavazos on 07-13-2023 Estimated GFR (MDRD) Amer 118 mL/min >60 [facility] Comment on above: GFR Calc Estimated GFR (MDRD) Non-Af Amer 98 mL/min >60 [facility] Comment on above: Non- GFR Calc Levetiracetam (Keppra) Level 25.5 ug/mL 10.0-40.0 [facility] Comment on above: Performed at: [address] [id number] Director: Alpesh Vázquez MD, Phone: [phone] RBC Auto (Bld) [#/Vol]Ordere d By: Carlos Cavazos on 07-13-2023 RBC (Bld) [#/Vol] 4.90 10*6/uL 4.6-6.2 [facility] Serum or plasma calcium oral urement (mass/volume)Ordered By: Carlos Cavazos on 07-13-2023 Calcium [Mass/Vol] 9.1 mg/dL 8.5-10.1 [facility] Serum or plasma creatinine m easurement (mass/volume)Ordered By: Carlos Cavazos on 07-13-2023 Creatinine [Mass/Vol] 0.82 mg/dL 0.70-1.30 [facility] Comment on above: The validity of the calculated GFR & GFRAA in patients over 70 years has not been determined. Clinical correlation is essential. Serum or plasma urea nitroge n measurement (mass/volume)Ordered By: Carlos Cavazos on 07-13-2023 Urea nitrogen [Mass/Vol] 18 mg/dL 7-18 [facility] Thin prep Papanicolaou smear with manual screeningOrdered By: Carlos Cavazos on 07-13-2023 Thin prep Papanicolaou smear with manual screening 6 5-15 [facility] No Panel InformationOrdered By: Carlos Cavazos on 07-12-2023 Valproic Acid (Depakene) Level < 3 ug/mL 50-100 [facility] Laboratory - CoagulationOrde red By: Carlos Cavazos on 07-05-2023 INR Coag (Bld) [Relative time] 2.4 {INR} [facility] PT Coag (PPP) [Time] 26.3 s 11.7-14.9 [facility] Laboratory - CoagulationOrde red By: Carlos Cavazos on 07-02-2023 INR Coag (Bld) [Relative time] 1.5 {INR} [facility] PT Coag (PPP) [Time] 18.5 s 11.7-14.9 [facility] Laboratory - CoagulationOrde red By: Carlos Cavazos on 06-28-2023 INR Coag (Bld) [Relative time] 1.7 {INR} [facility] PT Coag (PPP) [Time] 20.5 s 11.7-14.9 [facility] 36on 06-25-2023 36 [facility] called in stating appt scheduled 07/10/23 [place] has to be made further out, pt being transported by cot. Changed appt to 08/13/23 per [facility] only avail time for transport, first avail with DR Buck at 10:[address] [facility] Laboratory - CoagulationOrde red By: Carlos Cavazos on 06-25-2023 INR Coag (Bld) [Relative time] 3.8 {INR} [facility] PT Coag (PPP) [Time] 38.2 s 11.7-14.9 [facility] Laboratory - CoagulationOrde red By: Carlos Cavazos on 06-21-2023 INR Coag (Bld) [Relative time] 3.2 {INR} [facility] PT Coag (PPP) [Time] 32.9 s 11.7-14.9 [facility] No Panel InformationOrdered By: Carlos Cavazos on 06-13-2023 Valproic Acid (Depakene) Level < 3 ug/mL 50-100 [facility] Laboratory - CoagulationOrde red By: Carlos Cavazos on 06-06-2023 PT Coag (PPP) [Time] 30.5 s 11.7-14.9 [facility] Platelet poor plasma interna tional normalized ratio (INR)Ordered By: Carlos Cavazos on 06-06-2023 INR Coag (PPP) [Relative time] 2.9 {INR} [facility] International normalized rat io (INR) calculationOrdered By: Carlos Cavazos on 05-23-2023 INR Coag (PPP) [Relative time] 2.6 {INR} [facility] Laboratory - CoagulationOrde red By: Carlos Cavazos on 05-23-2023 PT Coag (PPP) [Time] 27.7 s 11.7-14.9 [facility] Laboratory - CoagulationOrde red By: Carlos Cavazos on 05-09-2023 PT Coag (PPP) [Time] 24.1 s 11.7-14.9 [facility] Whole blood international no rmalized ratio (INR)Ordered By: Carlos Cavazos on 05-09-2023 INR Coag (Bld) [Relative time] 2.1 {INR} [facility] Laboratory - CoagulationOrde red By: Carlos Cavazos on 04-23-2023 PT Coag (PPP) [Time] 26.4 s 11.7-14.9 [facility] Whole blood international no rmalized ratio (INR)Ordered By: Carlos Cavazos on 04-23-2023 INR Coag (Bld) [Relative time] 2.4 {INR} [facility] INR in Blood by Coagulation assayOrdered By: Carlos Cavazos on 04-09-2023 INR Coag (Bld) [Relative time] 2.1 {INR} [facility] Laboratory - CoagulationOrde red By: Carlos Cavazos on 04-09-2023 PT Coag (PPP) [Time] 23.9 s 11.7-14.9 [facility] INR in Blood by Coagulation assayOrdered By: Carlos Cavazos on 04-02-2023 INR Coag (Bld) [Relative time] 2.2 {INR} [facility] Laboratory - CoagulationOrde red By: Carlos Cavazos on 04-02-2023 PT Coag (PPP) [Time] 24.5 s 11.7-14.9 [facility] INR in Blood by Coagulation assayOrdered By: Carlos Cavazos on 03-26-2023 INR Coag (Bld) [Relative time] 1.7 {INR} [facility] Laboratory - CoagulationOrde red By: Carlos Cavazos on 03-26-2023 PT Coag (PPP) [Time] 19.9 s 11.7-14.9 [facility] INR in Blood by Coagulation assayOrdered By: Carlos Cavazos on 03-22-2023 INR Coag (Bld) [Relative time] 1.3 {INR} [facility] Laboratory - CoagulationOrde red By: Carlos Cavazos on 03-22-2023 PT Coag (PPP) [Time] 16.4 s 11.7-14.9 [facility] INR in Blood by Coagulation assayOrdered By: Carlos Cavazos on 03-08-2023 INR Coag (Bld) [Relative time] 2.0 {INR} [facility] Laboratory - CoagulationOrde red By: Carlos Cavazos on 03-08-2023 PT Coag (PPP) [Time] 22.5 s 11.7-14.9 [facility] Laboratory - CoagulationOrde red By: Carlos Cavazos on 02-22-2023 INR Coag (Bld) [Relative time] 2.2 {INR} [facility] Comment on above: Critical Value > 4.0 Whole blood prothrombin time Ordered By: Carlos Cavazos on 02-22-2023 PT Coag (Bld) [Time] 24.0 s 11.7-14.9 [facility] INR in Blood by Coagulation assayOrdered By: Cliff Bruner on 02-15-2023 INR Coag (Bld) [Relative time] 2.0 {INR} [facility] Laboratory - CoagulationOrde red By: Cliff Bruner on 02-15-2023 PT Coag (PPP) [Time] 22.8 s 11.7-14.9 [facility] INR in Blood by Coagulation assayOrdered By: Carlos Cavazos on 02-08-2023 INR Coag (Bld) [Relative time] 2.1 {INR} [facility] Laboratory - CoagulationOrde red By: Carlos Cavazos on 02-08-2023 PT Coag (PPP) [Time] 23.5 s 11.7-14.9 [facility] INR in Blood by Coagulation assayOrdered By: Carlos Cavazos on 01-31-2023 INR Coag (Bld) [Relative time] 2.0 {INR} [facility] Laboratory - CoagulationOrde red By: Carlos Cavazos on 01-31-2023 PT Coag (PPP) [Time] 22.4 s 11.7-14.9 [facility] Laboratory - CoagulationOrde red By: Carlos Cavazos on 01-29-2023 INR Coag (Bld) [Relative time] 1.8 {INR} [facility] Comment on above: Critical Value > 4.0 Whole blood prothrombin time Ordered By: Carlos Cavazos on 01-29-2023 PT Coag (Bld) [Time] 19.9 s 11.7-14.9 [facility] INR in Blood by Coagulation assayOrdered By: Carlos Cavazos on 01-26-2023 INR Coag (Bld) [Relative time] 1.5 {INR} [facility] Laboratory - CoagulationOrde red By: Carlos Cavazos on 01-26-2023 PT Coag (PPP) [Time] 18.3 s 11.7-14.9 [facility] INR in Blood by Coagulation assayOrdered By: Carlos Cavazos on 01-24-2023 INR Coag (Bld) [Relative time] 1.3 {INR} [facility] - CoagulationOrde red By: Carlos Cavazos on 01-24-2023 PT Coag (PPP) [Time] 16.2 s 11.7-14.9 [facility] Basophil percentageOrdered B y: Carlos Cavazos on 01-22-2023 Basophil percentage 0 SEEN /hpf 0-5 [facility] Bilirubin Test strip Ql (U)O rdered By: Carlos Cavazos on 01-22-2023 Bilirubin Ql (U) Negative Negative [facility] Calcium oxalate crystals det ection in urine sediment by light microscopyOrdered By: Carlos Cavazos on 01-22-2023 Calcium oxalate crystals LM Ql (Urine sed) 1+ /hpf [facility] Culture, urineOrdered By: Sharif Crouch on 01-22-2023 Bacteria identified Cx Nom (U) Positive [facility] Ketones Test strip Ql (U)Ord ered By: Carlos Cavazos on 01-22-2023 Ketones Ql (U) Negative Negative [facility] Mucus LM Ql (Urine sed)Order ed By: Carlos Cavazos on 01-22-2023 Mucus Ql (Urine sed) 1+ /hpf [facility] Nitrite Test strip Ql (U)Ord ered By: Carlos Cavazos on 01-22-2023 Nitrite Ql (U) Negative Negative [facility] Protein Test strip Ql (U)Ord ered By: Carlos Cavazos on 01-22-2023 Protein Ql (U) Negative Negative [facility] Squamous epithelial cells de tection in urine sediment by light microscopyOrdered By: Carlos Cavazos on 01-22-2023 Epithelial cells.squamous LM Ql (Urine sed) 0 SEEN /hpf 0-5 [facility] Urine blood detectionOrdered By: Carlos Cavazos on 01-22-2023 RBC Ql (U) Negative Negative [facility] RBC Ql (U) 0 SEEN /hpf 0-5 [facility] Urine clarityOrdered By: Ted Cavazos on 01-22-2023 Clarity (U) Sl. Cloudy Clear [facility] Urine color determinationOrd ered By: Carlos Cavazos on 01-22-2023 Color (U) Yellow Yellow [facility] Urine glucose detectionOrder ed By: Carlos Cavazos on 01-22-2023 Glucose Ql (U) Normal mg/dl Normal [facility] Urine leukocyte esterase det ection by dipstickOrdered By: Carlos Cavazos on 01-22-2023 Leukocyte esterase Test strip Ql (U) Negative Negative [facility] Urine pHOrdered By: Carlos flores on 01-22-2023 pH (U) 5.0 [pH] 5.0 - 8.0 [facility] Urine sediment bacteria coun t by microscopy (number/high power field)Ordered By: Carlos Cavazos on 01-22-2023 Bacteria LM.HPF (Urine sed) [#/Area] 2 /[HPF] None Seen [facility] Urine specific gravity measu rementOrdered By: Carlos Cavazos on 01-22-2023 Specific gravity (U) [Rel density] 1.025 1.002-1.030 [facility] Urobilinogen Auto test strip Ql (U)Ordered By: Carlos Cavazos on 01-22-2023 Urobilinogen Ql (U) Normal mg/dl Normal [facility] INR in Blood by Coagulation assayOrdered By: Carlos Cavazos on 01-10-2023 INR Coag (Bld) [Relative time] 2.0 {INR} [facility] Laboratory - CoagulationOrde red By: Carlos Cavazos on 01-10-2023 PT Coag (PPP) [Time] 22.6 s 11.7-14.9 [facility] INR in Blood by Coagulation assayOrdered By: Carlos Cavazos on 12-27-2022 INR Coag (Bld) [Relative time] 2.1 {INR} [facility] Laboratory - CoagulationOrde red By: Carlos Cavazos on 12-27-2022 PT Coag (PPP) [Time] 24.1 s 11.7-14.9 [facility] INR in Blood by Coagulation assayOrdered By: Carlos Cavazos on 12-21-2022 INR Coag (Bld) [Relative time] 2.4 {INR} [facility] Laboratory - CoagulationOrde red By: Carlos Cavazos on 12-21-2022 PT Coag (PPP) [Time] 26.7 s 11.7-14.9 [facility] Laboratory - CoagulationOrde red By: Carlos Cavazos on 12-14-2022 INR Coag (Bld) [Relative time] 2.3 {INR} [facility] Comment on above: Critical Value > 4.0 Whole blood prothrombin time Ordered By: Carlos Cavazos on 12-14-2022 PT Coag (Bld) [Time] 25.2 s 11.7-14.9 [facility] Laboratory - CoagulationOrde red By: Carlos Cavazos on 12-07-2022 INR Coag (Bld) [Relative time] 2.5 {INR} [facility] Comment on above: Critical Value > 4.0 Whole blood prothrombin time Ordered By: Carlos Cavazos on 12-07-2022 PT Coag (Bld) [Time] 26.9 s 11.7-14.9 [facility] Amorphous sediment detection in urine sediment by light microscopyOrdered By: Carlos Cavazos on 11-24-2022 Amorphous sediment LM Ql (Urine sed) 1+ [facility] Basophil percentageOrdered B y: Carlos Cavazos on 11-24-2022 Basophil percentage 0 SEEN /hpf 0-5 [facility] Bilirubin [Mass/Vol] 0.30 mg/dL 0.20-1.00 [facility] Comment on above: For patients on eltr ombopag therapy, use of Dimension [place] TBIL is not recommended. Chloride [Moles/Vol] 107 mmol/L 98-107 [facility] Glucose [Mass/Vol] 95 mg/dL 74-106 [facility] Potassium [Moles/Vol] 4.2 mmol/L 3.5-5.1 [facility] Protein [Mass/Vol] 6.9 g/dL 6.4-8.2 [facility] Sodium [Moles/Vol] 138 mmol/L 136-145 [facility] WBC (Bld) [#/Vol] 10.4 10*3/uL 4.4-11.0 [facility] Bilirubin Test strip Ql (U)O rdered By: Carlos Cavazos on 11-24-2022 Bilirubin Ql (U) Negative Negative [facility] Blood erythrocytes count (nu mber/volume)Ordered By: Carlos Cavazos on 11-24-2022 RBC (Bld) [#/Vol] 4.44 10*6/uL 4.6-6.2 [facility] Blood hemoglobin measurement (mass/volume)Ordered By: Carlos Cavazos on 11-24-2022 Hemoglobin (Bld) [Mass/Vol] 11.8 g/dL 13.0-16.5 [facility] Blood platelet mean volumeOr dered By: Carlos Cavazos on 11-24-2022 Platelet mean volume (Bld) [Entitic vol] 9.7 fL 6.2-12.0 [facility] Calcium oxalate crystals det ection in urine sediment by light microscopyOrdered By: Carlos Cavazos on 11-24-2022 Calcium oxalate crystals LM Ql (Urine sed) RARE /hpf [facility] Culture, urineOrdered By: Sharif Crouch on 11-24-2022 Bacteria identified Cx Nom (U) Positive [facility] Determination of erythrocyte mean corpuscular volume (MCV)Ordered By: Carlos Cavazos on 11-24-2022 MCV (RBC) [Entitic vol] 84.7 fL 80-94 [facility] Hematocrit Auto (Bld) [Volum e fraction]Ordered By: Carlos Cavazos on 11-24-2022 Hematocrit (Bld) [Volume fraction] 37.6 % 40-54 [facility] Ketones Test strip Ql (U)Ord ered By: Carlos Cavazos on 11-24-2022 Ketones Ql (U) Negative Negative [facility] Laboratory - Chemistry and C hemistry - challengeOrdered By: Carlos Cavazos on 11-24-2022 ALP [Catalytic activity/Vol] 103 U/L 45-117 [facility] ALT [Catalytic activity/Vol] 14 U/L 16-61 [facility] CO2 [Moles/Vol] 26.0 mmol/L 21.0-32.0 [facility] Globulin (S) [Mass/Vol] 4.0 g/dL 2.2-4.2 [facility] Urea nitrogen/Creatinine [Mass ratio] 24.1 mg/mg 10-20 [facility] Laboratory - Hematology and Cell countsOrdered By: Carlos Cavazos on 11-24-2022 Erythrocyte distribution width (RBC) [Entitic vol] 49.4 fL 35.1-43.9 [facility] Erythrocyte distribution width (RBC) [Ratio] 16.0 % 11.6-14.6 [facility] MCH (RBC) [Entitic mass] 26.6 pg 27.0-32.0 [facility] MCHC Auto (RBC) [Mass/Vol]Or dered By: Carlos Cavazos on 11-24-2022 MCHC (RBC) [Mass/Vol] 31.4 g/dL 32-36 [facility] Mucus LM Ql (Urine sed)Order ed By: Carlos Cavazos on 11-24-2022 Mucus Ql (Urine sed) 0 SEEN /hpf [facility] Nitrite Test strip Ql (U)Ord ered By: Carlos Cavazos on 11-24-2022 Nitrite Ql (U) Negative Negative [facility] No Panel InformationOrdered By: Carlos Cavazos on 11-24-2022 Estimated GFR (MDRD) Amer 118 mL/min >60 [facility] Comment on above: GFR Calc Estimated GFR (MDRD) Non-Af Amer 97 mL/min >60 [facility] Comment on above: Non- GFR Calc Platelets bldOrdered By: Ted Cavazos on 11-24-2022 Platelets (Bld) [#/Vol] 309 10*3/uL 150-450 [facility] Protein Test strip Ql (U)Ord ered By: Carlos Cavazos on 11-24-2022 Protein Ql (U) Negative Negative [facility] Serum or plasma albumin oral urement (mass/volume)Ordered By: Carlos Cavazos on 11-24-2022 Albumin [Mass/Vol] 2.9 g/dL 3.2-5.0 [facility] Serum or plasma albumin/glob ulin mass ratioOrdered By: Carlos Cavazos on 11-24-2022 Albumin/Globulin [Mass ratio] 0.7 {ratio} 0.9-2.4 [facility] Serum or plasma calcium oral urement (mass/volume)Ordered By: Carlos Cavazos on 11-24-2022 Calcium [Mass/Vol] 8.7 mg/dL 8.5-10.1 [facility] Serum or plasma creatinine m easurement (mass/volume)Ordered By: Carlos Cavazos on 11-24-2022 Creatinine [Mass/Vol] 0.83 mg/dL 0.70-1.30 [facility] Comment on above: The validity of the calculated GFR & GFRAA in patients over 70 years has not been determined. Clinical correlation is essential. Serum or plasma urea nitroge n measurement (mass/volume)Ordered By: Carlos Cavazos on 11-24-2022 Urea nitrogen [Mass/Vol] 20 mg/dL 7-18 [facility] Squamous epithelial cells de tection in urine sediment by light microscopyOrdered By: Carlos Cavazos on 11-24-2022 Epithelial cells.squamous LM Ql (Urine sed) 0 SEEN /hpf 0-5 [facility] Thin prep Papanicolaou smear with manual screeningOrdered By: Carlos Cavazos on 11-24-2022 Thin prep Papanicolaou smear with manual screening 10 U/L 15-37 [facility] Thin prep Papanicolaou smear with manual screening 5 5-15 [facility] Urine blood detectionOrdered By: Carlos Cavazos on 11-24-2022 RBC Ql (U) Negative Negative [facility] RBC Ql (U) 0 SEEN /hpf 0-5 [facility] Urine clarityOrdered By: Ted Cavazos on 11-24-2022 Clarity (U) Clear Clear [facility] Urine color determinationOrd ered By: Carlos Cavazos on 11-24-2022 Color (U) Yellow Yellow [facility] Urine glucose detectionOrder ed By: Carlos Cavazos on 11-24-2022 Glucose Ql (U) Normal mg/dl Normal [facility] Urine leukocyte esterase det ection by dipstickOrdered By: Carlos Cavazos on 11-24-2022 Leukocyte esterase Test strip Ql (U) Negative Negative [facility] Urine pHOrdered By: Carlos flores on 11-24-2022 pH (U) 7.0 [pH] 5.0 - 8.0 [facility] Urine sediment bacteria coun t by microscopy (number/high power field)Ordered By: Carlos Cavazos on 11-24-2022 Bacteria LM.HPF (Urine sed) [#/Area] 0 /[HPF] None Seen [facility] Urine specific gravity measu rementOrdered By: Carlos Cavazos on 11-24-2022 Specific gravity (U) [Rel density] 1.010 1.002-1.030 [facility] Urobilinogen Auto test strip Ql (U)Ordered By: Carlos Cavazos on 11-24-2022 Urobilinogen Ql (U) Normal mg/dl Normal [facility] Laboratory - CoagulationOrde red By: Carlos Cavazos on 11-23-2022 INR Coag (Bld) [Relative time] 2.2 {INR} [facility] Comment on above: Critical Value > 4.0 Whole blood prothrombin time Ordered By: Carlos Cavazos on 11-23-2022 PT Coag (Bld) [Time] 24.5 s 11.7-14.9 [facility] Basophil percentageOrdered B y: Carlos Cavazos on 11-22-2022 Chloride [Moles/Vol] 105 mmol/L 98-107 [facility] Glucose [Mass/Vol] 91 mg/dL 74-106 [facility] Potassium [Moles/Vol] 4.1 mmol/L 3.5-5.1 [facility] Sodium [Moles/Vol] 138 mmol/L 136-145 [facility] WBC (Bld) [#/Vol] 12.0 10*3/uL 4.4-11.0 [facility] Blood erythrocytes count (nu mber/volume)Ordered By: Carlos Cavazos on 11-22-2022 RBC (Bld) [#/Vol] 4.65 10*6/uL 4.6-6.2 [facility] Blood hemoglobin measurement (mass/volume)Ordered By: Carlos Cavazos on 11-22-2022 Hemoglobin (Bld) [Mass/Vol] 12.4 g/dL 13.0-16.5 [facility] Blood platelet mean volumeOr dered By: Carlos Cavazos on 11-22-2022 Platelet mean volume (Bld) [Entitic vol] 10.3 fL 6.2-12.0 [facility] Determination of erythrocyte mean corpuscular volume (MCV)Ordered By: Carlos Cavazos on 11-22-2022 MCV (RBC) [Entitic vol] 86.0 fL 80-94 [facility] Hematocrit Auto (Bld) [Volum e fraction]Ordered By: Carlos Cavazos on 11-22-2022 Hematocrit (Bld) [Volume fraction] 40.0 % 40-54 [facility] Laboratory - Chemistry and C hemistry - challengeOrdered By: Carlos Cavazos on 11-22-2022 CO2 [Moles/Vol] 25.0 mmol/L 21.0-32.0 [facility] Urea nitrogen/Creatinine [Mass ratio] 23.6 mg/mg 10-20 [facility] Laboratory - Hematology and Cell countsOrdered By: Carlos Cavazos on 11-22-2022 Erythrocyte distribution width (RBC) [Entitic vol] 50.0 fL 35.1-43.9 [facility] Erythrocyte distribution width (RBC) [Ratio] 15.9 % 11.6-14.6 [facility] MCH (RBC) [Entitic mass] 26.7 pg 27.0-32.0 [facility] MCHC Auto (RBC) [Mass/Vol]Or dered By: Carlos Cavazos on 11-22-2022 MCHC (RBC) [Mass/Vol] 31.0 g/dL 32-36 [facility] No Panel InformationOrdered By: Carlos Cavazos on 11-22-2022 Estimated GFR (MDRD) Amer 115 mL/min >60 [facility] Comment on above: GFR Calc Estimated GFR (MDRD) Non-Af Amer 95 mL/min >60 [facility] Comment on above: Non- GFR Calc Platelets bldOrdered By: Pet er Kenny on 11-22-2022 Platelets (Bld) [#/Vol] 320 10*3/uL 150-450 [facility] Serum or plasma calcium oral urement (mass/volume)Ordered By: Carlos Cavazos on 11-22-2022 Calcium [Mass/Vol] 8.7 mg/dL 8.5-10.1 [facility] Serum or plasma creatinine m easurement (mass/volume)Ordered By: Carlos Cavazos on 11-22-2022 Creatinine [Mass/Vol] 0.85 mg/dL 0.70-1.30 [facility] Comment on above: The validity of the calculated GFR & GFRAA in patients over 70 years has not been determined. Clinical correlation is essential. Serum or plasma urea nitroge n measurement (mass/volume)Ordered By: Carlos Cavazos on 11-22-2022 Urea nitrogen [Mass/Vol] 20 mg/dL 7-18 [facility] Thin prep Papanicolaou smear with manual screeningOrdered By: Carlos Cavazos on 11-22-2022 Thin prep Papanicolaou smear with manual screening 8 5-15 [facility] Laboratory - CoagulationOrde red By: Carlos Cavazos on 11-09-2022 INR Coag (Bld) [Relative time] 2.1 {INR} [facility] Comment on above: Critical Value > 4.0 Whole blood prothrombin time Ordered By: Carlos Cavazos on 11-09-2022 PT Coag (Bld) [Time] 22.6 s 11.7-14.9 [facility] Laboratory - CoagulationOrde red By: Carlos Cavazos on 10-26-2022 INR Coag (Bld) [Relative time] 2.6 {INR} [facility] Comment on above: Critical Value > 4.0 Whole blood prothrombin time Ordered By: Carlos Cavazos on 10-26-2022 PT Coag (Bld) [Time] 28.5 s 11.7-14.9 [facility] - CoagulationOrde red By: Carlos Cavazos on 10-12-2022 INR Coag (Bld) [Relative time] 2.4 {INR} [facility] Comment on above: Critical Value > 4.0 Whole blood prothrombin time Ordered By: Carlos Cavazos on 10-12-2022 PT Coag (Bld) [Time] 26.4 s 11.7-14.9 [facility] - CoagulationOrde red By: Carlos Cavazos on 10-05-2022 INR Coag (Bld) [Relative time] 2.6 {INR} [facility] Comment on above: Critical Value > 4.0 Whole blood prothrombin time Ordered By: Carlos Cavazos on 10-05-2022 PT Coag (Bld) [Time] 28.0 s 11.7-14.9 [facility] - CoagulationOrde red By: Carlos Cavazos on 09-28-2022 INR Coag (Bld) [Relative time] 2.7 {INR} [facility] Comment on above: Critical Value > 4.0 Whole blood prothrombin time Ordered By: Carlos Cavazos on 09-28-2022 PT Coag (Bld) [Time] 28.9 s 11.7-14.9 [facility] - CoagulationOrde red By: Carlos Cavazos on 09-14-2022 INR Coag (Bld) [Relative time] 2.5 {INR} [facility] Comment on above: Critical Value > 4.0 Whole blood prothrombin time Ordered By: Carlos Cavazos on 09-14-2022 PT Coag (Bld) [Time] 27.4 s 11.7-14.9 [facility] - CoagulationOrde red By: Carlos Cavazos on 08-31-2022 INR Coag (Bld) [Relative time] 2.3 {INR} [facility] Comment on above: Critical Value > 4.0 Whole blood prothrombin time Ordered By: Carlos Cavazos on 08-31-2022 PT Coag (Bld) [Time] 25.4 s 11.7-14.9 [facility] Basophil percentageOrdered B y: Carlos Cavazos on 08-23-2022 Chloride [Moles/Vol] 108 mmol/L 98-107 [facility] Glucose [Mass/Vol] 86 mg/dL 74-106 [facility] Potassium [Moles/Vol] 4.3 mmol/L 3.5-5.1 [facility] Sodium [Moles/Vol] 136 mmol/L 136-145 [facility] WBC (Bld) [#/Vol] 10.0 10*3/uL 4.4-11.0 [facility] Blood erythrocytes count (nu mber/volume)Ordered By: Carlos Cavazos on 08-23-2022 RBC (Bld) [#/Vol] 4.77 10*6/uL 4.6-6.2 [facility] Blood hemoglobin measurement (mass/volume)Ordered By: Carlos Cavazos on 08-23-2022 Hemoglobin (Bld) [Mass/Vol] 12.5 g/dL 13.0-16.5 [facility] Blood platelet mean volumeOr dered By: Carlos Cavazos on 08-23-2022 Platelet mean volume (Bld) [Entitic vol] 11.0 fL 6.2-12.0 [facility] Determination of erythrocyte mean corpuscular volume (MCV)Ordered By: Carlos Cavazos on 08-23-2022 MCV (RBC) [Entitic vol] 84.3 fL 80-94 [facility] Hematocrit Auto (Bld) [Volum e fraction]Ordered By: Carlos Cavazos on 08-23-2022 Hematocrit (Bld) [Volume fraction] 40.2 % 40-54 [facility] - Chemistry and C hemistry - challengeOrdered By: Carlos Cavazos on 08-23-2022 CO2 [Moles/Vol] 24.0 mmol/L 21.0-32.0 [facility] Urea nitrogen/Creatinine [Mass ratio] 22.8 mg/mg 10-20 [facility] - Hematology and Cell countsOrdered By: Carlos Cavzaos on 08-23-2022 Erythrocyte distribution width (RBC) [Entitic vol] 49.3 fL 35.1-43.9 [facility] Erythrocyte distribution width (RBC) [Ratio] 16.0 % 11.6-14.6 [facility] MCH (RBC) [Entitic mass] 26.2 pg 27.0-32.0 [facility] MCHC Auto (RBC) [Mass/Vol]Or dered By: Carlos Cavazos on 08-23-2022 MCHC (RBC) [Mass/Vol] 31.1 g/dL 32-36 [facility] No Panel InformationOrdered By: Carlos Cavazos on 08-23-2022 Estimated GFR (MDRD) Amer 134 mL/min >60 [facility] Comment on above: GFR Calc Estimated GFR (MDRD) Non-Af Amer 110 mL/min >60 [facility] Comment on above: Non- GFR Calc Platelets bldOrdered By: Ted Cavazos on 08-23-2022 Platelets (Bld) [#/Vol] 268 10*3/uL 150-450 [facility] Serum or plasma calcium oral urement (mass/volume)Ordered By: Carlos Cavazos on 08-23-2022 Calcium [Mass/Vol] 9.1 mg/dL 8.5-10.1 [facility] Serum or plasma creatinine m easurement (mass/volume)Ordered By: Carlos Cavazos on 08-23-2022 Creatinine [Mass/Vol] 0.74 mg/dL 0.70-1.30 [facility] Comment on above: The validity of the calculated GFR & GFRAA in patients over 70 years has not been determined. Clinical correlation is essential. Serum or plasma urea nitroge n measurement (mass/volume)Ordered By: Carlos Cavazos on 08-23-2022 Urea nitrogen [Mass/Vol] 17 mg/dL 7-18 [facility] Thin prep Papanicolaou smear with manual screeningOrdered By: Carlos Cavazos on 08-23-2022 Thin prep Papanicolaou smear with manual screening 4 5-15 [facility] - CoagulationOrde red By: Carlos Cavazos on 08-17-2022 INR Coag (Bld) [Relative time] 2.8 {INR} [facility] Comment on above: Critical Value > 4.0 Whole blood prothrombin time Ordered By: Carlos Cavazos on 08-17-2022 PT Coag (Bld) [Time] 29.6 s 11.7-14.9 [facility] - CoagulationOrde red By: Carlos Cavazos on 08-14-2022 INR Coag (Bld) [Relative time] 3.9 {INR} [facility] Comment on above: Critical Value > 4.0 Whole blood prothrombin time Ordered By: Carlos Cavazos on 08-14-2022 PT Coag (Bld) [Time] 40.6 s 11.7-14.9 [facility] - CoagulationOrde red By: Carlos Cavazos on 07-31-2022 INR Coag (Bld) [Relative time] 2.5 {INR} [facility] Comment on above: Critical Value > 4.0 Whole blood prothrombin time Ordered By: Carlos Cavazos on 07-31-2022 PT Coag (Bld) [Time] 26.8 s 11.7-14.9 [facility] INR in Blood by Coagulation assayOrdered By: Carlos Cavazos on 07-24-2022 INR Coag (Bld) [Relative time] 2.3 {INR} [facility] - CoagulationOrde red By: Carlos Cavazos on 07-24-2022 PT Coag (PPP) [Time] 24.7 s 11.7-14.9 [facility] - CoagulationOrde red By: Carlos Cavazos on 07-20-2022 INR Coag (Bld) [Relative time] 1.9 {INR} [facility] Comment on above: Critical Value > 4.0 Whole blood prothrombin time Ordered By: Carlos Cavazos on 07-20-2022 PT Coag (Bld) [Time] 20.6 s 11.7-14.9 [facility] - CoagulationOrde red By: Carlos Cavazos on 07-17-2022 INR Coag (Bld) [Relative time] 1.3 {INR} [facility] Comment on above: Critical Value > 4.0 Whole blood prothrombin time Ordered By: Carlos Cavazos on 07-17-2022 PT Coag (Bld) [Time] 15.9 s 11.7-14.9 [facility] Basophil percentageOrdered B y: Carlos Cavazos on 07-11-2022 Chloride [Moles/Vol] 105 mmol/L 98-107 [facility] Glucose [Mass/Vol] 97 mg/dL 74-106 [facility] Potassium [Moles/Vol] 3.9 mmol/L 3.5-5.1 [facility] Sodium [Moles/Vol] 140 mmol/L 136-145 [facility] WBC (Bld) [#/Vol] 9.4 10*3/uL 4.4-11.0 [facility] Blood erythrocytes count (nu mber/volume)Ordered By: Carlos Cavazos on 07-11-2022 RBC (Bld) [#/Vol] 4.66 10*6/uL 4.6-6.2 [facility] Blood hemoglobin measurement (mass/volume)Ordered By: Carlos Cavazos on 07-11-2022 Hemoglobin (Bld) [Mass/Vol] 12.0 g/dL 13.0-16.5 [facility] Blood platelet mean volumeOr dered By: Carlos Cavazos on 07-11-2022 Platelet mean volume (Bld) [Entitic vol] 10.4 fL 6.2-12.0 [facility] Determination of erythrocyte mean corpuscular volume (MCV)Ordered By: Carlos Cavazos on 07-11-2022 MCV (RBC) [Entitic vol] 83.7 fL 80-94 [facility] Hematocrit Auto (Bld) [Volum e fraction]Ordered By: Carlos Cavazos on 07-11-2022 Hematocrit (Bld) [Volume fraction] 39.0 % 40-54 [facility] - Chemistry and C hemistry - challengeOrdered By: Carlos Cavazos on 07-11-2022 CO2 [Moles/Vol] 28.0 mmol/L 21.0-32.0 [facility] Urea nitrogen/Creatinine [Mass ratio] 23.0 mg/mg 10-20 [facility] - Hematology and Cell countsOrdered By: Carlos Cavazos on 07-11-2022 Erythrocyte distribution width (RBC) [Entitic vol] 51.0 fL 35.1-43.9 [facility] Erythrocyte distribution width (RBC) [Ratio] 16.8 % 11.6-14.6 [facility] MCH (RBC) [Entitic mass] 25.8 pg 27.0-32.0 [facility] MCHC Auto (RBC) [Mass/Vol]Or dered By: Carlos Cavazos on 07-11-2022 MCHC (RBC) [Mass/Vol] 30.8 g/dL 32-36 [facility] No Panel InformationOrdered By: Carlos Cavazos on 07-11-2022 Estimated GFR (MDRD) Amer 126 mL/min >60 [facility] Comment on above: GFR Calc Estimated GFR (MDRD) Non-Af Amer 104 mL/min >60 [facility] Comment on above: Non- GFR Calc Platelets bldOrdered By: Ted Cavazos on 07-11-2022 Platelets (Bld) [#/Vol] 291 10*3/uL 150-450 [facility] Serum or plasma calcium oral urement (mass/volume)Ordered By: Carlos Cavazos on 07-11-2022 Calcium [Mass/Vol] 9.2 mg/dL 8.5-10.1 [facility] Serum or plasma creatinine m easurement (mass/volume)Ordered By: Carlos Cavazos on 07-11-2022 Creatinine [Mass/Vol] 0.78 mg/dL 0.70-1.30 [facility] Comment on above: The validity of the calculated GFR & GFRAA in patients over 70 years has not been determined. Clinical correlation is essential. Serum or plasma urea nitroge n measurement (mass/volume)Ordered By: Carlos Cavazos on 07-11-2022 Urea nitrogen [Mass/Vol] 18 mg/dL 7-18 [facility] Thin prep Papanicolaou smear with manual screeningOrdered By: Carlos Cavazos on 07-11-2022 Thin prep Papanicolaou smear with manual screening 7 5-15 [facility] - CoagulationOrde red By: Carlos Cavazos on 07-10-2022 INR Coag (Bld) [Relative time] 1.8 {INR} [facility] Comment on above: Critical Value > 4.0 Whole blood prothrombin time Ordered By: Carlos Cavazos on 07-10-2022 PT Coag (Bld) [Time] 21.0 s 11.7-14.9 [facility] - CoagulationOrde red By: Carlos Cavazos on 07-03-2022 INR Coag (Bld) [Relative time] 1.9 {INR} [facility] Comment on above: Critical Value > 4.0 Whole blood prothrombin time Ordered By: Carlos Cavazos on 07-03-2022 PT Coag (Bld) [Time] 22.7 s 11.7-14.9 [facility] INR in Blood by Coagulation assayOrdered By: Carlos Cavazos on 06-27-2022 INR Coag (Bld) [Relative time] 2.9 {INR} [facility] - CoagulationOrde red By: Carlos Cavazos on 06-27-2022 PT Coag (PPP) [Time] 29.9 s 11.7-14.9 [facility] - CoagulationOrde red By: Carlos Cavazos on 06-13-2022 INR Coag (Bld) [Relative time] 2.1 {INR} [facility] Comment on above: Critical Value > 4.0 Whole blood prothrombin time Ordered By: Carlos Cavazos on 06-13-2022 PT Coag (Bld) [Time] 24.4 s 11.7-14.9 [facility] - CoagulationOrde red By: Carlos Cavazos on 06-06-2022 INR Coag (Bld) [Relative time] 1.5 {INR} [facility] Comment on above: Critical Value > 4.0 Whole blood prothrombin time Ordered By: Carlos Cavazos on 06-06-2022 PT Coag (Bld) [Time] 18.4 s 11.7-14.9 [facility] Basophil percentageOrdered B y: Carlos Cavazos on 05-30-2022 Chloride [Moles/Vol] 105 mmol/L 98-107 [facility] Glucose [Mass/Vol] 95 mg/dL 74-106 [facility] Potassium [Moles/Vol] 3.9 mmol/L 3.5-5.1 [facility] Sodium [Moles/Vol] 140 mmol/L 136-145 [facility] WBC (Bld) [#/Vol] 7.6 10*3/uL 4.4-11.0 [facility] Blood erythrocytes count (nu mber/volume)Ordered By: Carlos Cavazos on 05-30-2022 RBC (Bld) [#/Vol] 4.79 10*6/uL 4.6-6.2 [facility] Blood hemoglobin measurement (mass/volume)Ordered By: Carlos Cavazos on 05-30-2022 Hemoglobin (Bld) [Mass/Vol] 12.1 g/dL 13.0-16.5 [facility] Blood platelet mean volumeOr dered By: Carlos Cavazos on 05-30-2022 Platelet mean volume (Bld) [Entitic vol] 10.4 fL 6.2-12.0 [facility] Determination of erythrocyte mean corpuscular volume (MCV)Ordered By: Carlos Cavazos on 05-30-2022 MCV (RBC) [Entitic vol] 82.5 fL 80-94 [facility] Hematocrit Auto (Bld) [Volum e fraction]Ordered By: Carlos Cavazos on 05-30-2022 Hematocrit (Bld) [Volume fraction] 39.5 % 40-54 [facility] INR in Blood by Coagulation assayOrdered By: Carlos Cavazos on 05-30-2022 INR Coag (Bld) [Relative time] 1.9 {INR} [facility] - Chemistry and C hemistry - challengeOrdered By: Carlos Cavazos on 05-30-2022 CO2 [Moles/Vol] 27.0 mmol/L 21.0-32.0 [facility] Urea nitrogen/Creatinine [Mass ratio] 21.4 mg/mg 10-20 [facility] - CoagulationOrde red By: Carlos Cavazos on 05-30-2022 PT Coag (PPP) [Time] 21.6 s 11.7-14.9 [facility] - Hematology and Cell countsOrdered By: Carlos Cavazos on 05-30-2022 Erythrocyte distribution width (RBC) [Entitic vol] 48.8 fL 35.1-43.9 [facility] Erythrocyte distribution width (RBC) [Ratio] 16.2 % 11.6-14.6 [facility] MCH (RBC) [Entitic mass] 25.3 pg 27.0-32.0 [facility] [Mass/Vol]Or dered By: Carlos Cavazos on 05-30-2022 MCHC (RBC) [Mass/Vol] 30.6 g/dL 32-36 [facility] No Panel InformationOrdered By: Carlos Cavazos on 05-30-2022 Estimated GFR (MDRD) Amer 133 mL/min >60 [facility] Comment on above: GFR Calc Estimated GFR (MDRD) Non-Af Amer 110 mL/min >60 [facility] Comment on above: Non- GFR Calc Platelets bldOrdered By: Ted Cavazos on 05-30-2022 Platelets (Bld) [#/Vol] 308 10*3/uL 150-450 [facility] Serum or plasma calcium oral urement (mass/volume)Ordered By: Carlos Cavazos on 05-30-2022 Calcium [Mass/Vol] 9.1 mg/dL 8.5-10.1 [facility] Serum or plasma creatinine m easurement (mass/volume)Ordered By: Carlos Cavazos on 05-30-2022 Creatinine [Mass/Vol] 0.75 mg/dL 0.70-1.30 [facility] Comment on above: The validity of the calculated GFR & GFRAA in patients over 70 years has not been determined. Clinical correlation is essential. Serum or plasma urea nitroge n measurement (mass/volume)Ordered By: Carlos Cavazos on 05-30-2022 Urea nitrogen [Mass/Vol] 16 mg/dL 7-18 [facility] Thin prep Papanicolaou smear with manual screeningOrdered By: Carlos Cavazos on 05-30-2022 Thin prep Papanicolaou smear with manual screening 8 5-15 [facility] - CoagulationOrde red By: Carlos Cavazos on 05-16-2022 INR Coag (Bld) [Relative time] 2.6 {INR} [facility] Comment on above: Critical Value > 4.0 Whole blood prothrombin time Ordered By: Carlos Cavazos on 05-16-2022 PT Coag (Bld) [Time] 29.9 s 11.7-14.[address] [facility] - CoagulationOrde red By: Carlos Cavazos on 05-02-2022 INR Coag (Bld) [Relative time] 2.0 {INR} [facility] Comment on above: Critical Value > 4.0 Whole blood prothrombin time Ordered By: Carlos Cavazos on 05-02-2022 PT Coag (Bld) [Time] 23.2 s 11.7-14.9 [facility] - CoagulationOrde red By: Carlos Cavazos on 04-27-2022 INR Coag (Bld) [Relative time] 2.7 {INR} [facility] Comment on above: Critical Value > 4.0 Whole blood prothrombin time Ordered By: Carlos Cavazos on 04-27-2022 PT Coag (Bld) [Time] 31.1 s 11.7-14.9 [facility] - CoagulationOrde red By: Carlos Cavazos on 04-26-2022 INR Coag (Bld) [Relative time] 2.8 {INR} [facility] Comment on above: Critical Value > 4.0 Whole blood prothrombin time Ordered By: Carlos Cavazos on 04-26-2022 PT Coag (Bld) [Time] 32.6 s 11.7-14.9 [facility] - CoagulationOrde red By: Carlos Cavazos on 04-11-2022 INR Coag (Bld) [Relative time] 2.9 {INR} [facility] Comment on above: Critical Value > 4.0 Whole blood prothrombin time Ordered By: Carlos Cavazos on 04-11-2022 PT Coag (Bld) [Time] 32.8 s 11.7-14.9 [facility] - CoagulationOrde red By: Carlos Cavazos on 03-28-2022 INR Coag (Bld) [Relative time] 2.1 {INR} [facility] Comment on above: Critical Value > 4.0 Whole blood prothrombin time Ordered By: Carlos Cavazos on 03-28-2022 PT Coag (Bld) [Time] 24.8 s 11.7-14.9 [facility] - CoagulationOrde red By: Carlos Cavazos on 03-23-2022 INR Coag (Bld) [Relative time] 1.7 {INR} [facility] Comment on above: Critical Value > 4.0 Whole blood prothrombin time Ordered By: Carlos Cavazos on 03-23-2022 PT Coag (Bld) [Time] 20.9 s 11.7-14.9 [facility] - CoagulationOrde red By: Carlos Cavazos on 03-16-2022 INR Coag (Bld) [Relative time] 1.7 {INR} [facility] Comment on above: Critical Value > 4.0 Whole blood prothrombin time Ordered By: Carlos Cavazos on 03-16-2022 PT Coag (Bld) [Time] 19.9 s 11.7-14.9 [facility] - CoagulationOrde red By: Carlos Cavazos on 03-09-2022 INR Coag (Bld) [Relative time] 1.8 {INR} [facility] Comment on above: Critical Value > 4.0 Whole blood prothrombin time Ordered By: Carlos Cavazos on 03-09-2022 PT Coag (Bld) [Time] 21.9 s 11.7-14.9 [facility] - CoagulationOrde red By: Carlos Cavazos on 03-06-2022 INR Coag (Bld) [Relative time] 1.7 {INR} [facility] Comment on above: Critical Value > 4.0 Whole blood prothrombin time Ordered By: Carlos Cavazos on 03-06-2022 PT Coag (Bld) [Time] 20.0 s 11.7-14.9 [facility] CBC with Auto Differentialon 03-02-2022 Absolute [...] - 10.7 10*3/uL [facility] Test Performed by [facility], [address] [place] [address] [facility] [address] HEAD WO CONTRASTon 2021 Patient Name: ANDREW SIFUENTES Computed Tomography ACCESSION EXAM DATE/TIME PROCEDURE ORDERING PROVIDER [id number] 03/02/2022 13:[address] Head or Brain w/o [id number] -LANETTE MUNGUIA Contrast CPT code 06216 Reason For Exam (CT Head or Brain [...] tubes (parent active on the left for BEVELER shunting and disconnected on the right). 2. [...] MD - 03/02/2022 [facility]: [id number] ACCESSION EXAM DATE/TIME PROCEDURE ORDERING PROVIDER [id number] 03/02/2022 13:[address] Head or Brain w/o [id number] -EZRA LANETTE Contrast CPT code 30121 Reason For Exam (CT Head or Brain [...] tubes (parent active on the left for BEVELER shunting and disconnected on the right). 2. [...] Tomography ACCESSION EXAM DATE/TIME PROCEDURE ORDERING PROVIDER [id number] 03/02/2022 13:[address] Head or Brain w/o [id number] -LANETTE MUNGUIA Contrast CPT code 99795 Reason For Exam (CT Head or Brain [...] tubes (parent active on the left for BEVELER shunting and disconnected on the right). 2. No definite evidence of acute infarction (MRI more sensitive), mass lesion, nor hemorrhage. Report Dictated on Final Dictated: 03/02/2022 1:35 pm Dictating Physician: MD GUTIERREZ WILLIAM Signed Date and Time: 03/02/2022 1:39 pm Signed by: MD GUTIERREZ WILLIAM Transcribed Date and Time: 03/02/2022 1:35 Normal [facility] Comp Metabolic Panelon 03-02 Calcium [Mass/Vol] 9.1 mg/dL Normal 8.4-10.4 [facility] Comment on above: Performed By: #### H TIERA PT, CMP3 ####[address] [place], [place] ALP [Catalytic activity/Vol] 128 U/L High 38-126 [facility] Comment on above: Performed By: #### H TIERA PT, CMP3 ####[address] [place], [place] ALT [Catalytic activity/Vol] 12 U/L Normal 0-49 [facility] Comment on above: Result Comment: The ALT test is performed by an updated assay method. Please note that the reference intervals have been changed and are now sex specific. Performed By: #### H EMDF PT, CMP3 ####[address] [place], [place] Anion gap [Moles/Vol] 7 mmol/L Normal 3-13 [facility] Comment on above: Performed By: #### H EMDF PT, CMP3 ####[address] [place], [place] AST [Catalytic activity/Vol] 24 U/L Normal 15-46 [facility] Comment on above: Performed By: #### H CHRISTEL MOTT, CMP3 ####[address] [place], [place] Bilirubin [Mass/Vol] 0.4 mg/dL Normal 0.2-1.3 [facility] Comment on above: Performed By: #### H CHRISTEL MOTT, CMP3 ####[address] [place], [place] CO2 [Moles/Vol] 27 mmol/L Normal 22-30 [facility] Comment on above: Performed By: #### H CHRISTEL MOTT CMP3 ####[address] [place], [place] Glucose [Mass/Vol] 109 mg/dL High 70-100 [facility] Comment on above: Performed By: #### H CHRISTEL MOTT, CMP3 ####[address] [place], [place] Protein [Mass/Vol] 8.1 g/dL Normal 6.3-8.2 [facility] Comment on above: Performed By: #### H CHRISTEL MOTT, CMP3 ####[address] [address] [place], [place] Urea nitrogen [Mass/Vol] 22 mg/dL High 7-17 [facility] Comment on above: Performed By: #### H CHRISTEL MOTT, CMP3 ####[address] [place], [place] Creatinine [Mass/Vol] 0.63 mg/dL Normal 0.52-1.25 [facility] Comment on above: Performed By: #### H CHRISTEL MOTT, CMP3 ####[address] [place], [place] eGFR OTHER > 90.0 Normal >60 [facility] Comment on above: Result Comment: KDIG [...] Performed By: #### H CHRISTEL MOTT CMP3 ####[address] [place] [address] GFR/1.73 sq M.predicted among blacks MDRD (S/P/Bld) [Vol rate/Area] mL/min/{1.73_m2} Normal >60 [facility] Comment on above: Performed By: #### H CHRISTEL MOTT CMP3 ####[address] [address] Albumin [Mass/Vol] 4.1 g/dL Normal 3.5-5.0 [facility] Comment on above: Performed By: #### H CHRISTEL MOTT CMP3 ####[address] [address] Chloride [Moles/Vol] 106 mmol/L Normal 98-107 [facility] Comment on above: Performed By: #### H CHRISTEL MOTT CMP3 ####[address] [address] Potassium [Moles/Vol] 3.7 mmol/L Normal 3.5-5.1 [facility] Comment on above: Performed By: #### H CHRISTEL MOTT CMP3 ####[address] [place] [address] Sodium [Moles/Vol] 140 mmol/L Normal 135-145 [facility] Comment on above: Performed By: #### H EMDF, PT, CMP3 ####[facility] [place] [address] Comprehensive Metabolic Pane [facility] 03-02-2022 Albumin [Mass/Vol] 4.1 g/dL [...] P INF mL/min [facility] EGFR IF NonAfrican Greenlandic mL/min 60 - PINF mL/min [facility] Comment [...] - 17 mg/dL [facility] Test Performed by [facility], [address] [place] [id number] [facility] ED Provider Noteon 2 ED Provider Note [facility] EMERGENCY DEPT EMERGENCY DEPARTMENT ENCOUNTER [...] male medical history of hydrocephalus status post BEVELER shunt, history of DVT on Coumadin [facility] [...] Hemorrhoids Hydrocephalus, adult (HCC) Kidney stone Neuropathy BEVELER (ventriculoperitoneal) shunt status SURGICAL HISTORY Past Surgical [...] CONTRAST R (more content not included)... Normal [facility] Hemogram w/ Autodiffon 03-02 Abs Baso Cnt 0.2 10*3/uL Normal 0.0-0.2 [facility] Comment on above: Performed By: #### H EMDF PT, CMP3 ####[facility] [place] [address] Abs Neutrophile Cnt 10.7 10*3/uL High 1.8-7.0 [facility] Comment on above: Performed By: #### H EMDF, PT, CMP3 ####[facility] [place] [address] Basophils/100 WBC (Bld) 1.1 % Normal 0.0-2.0 [facility] Comment on above: Performed By: #### H EMDF, PT, CMP3 ####[facility] [place] [address] Eosinophils (Bld) [#/Vol] 0.1 10*3/uL Normal 0.0-0.5 [facility] Comment on above: Performed By: #### H EMDHeydi PT, CMP3 ####[address] [address] Eosinophils/100 WBC (Bld) 0.5 % Low 1.0-6.0 [facility] Comment on above: Performed By: #### H EMDF PT, CMP3 ####[address] [address] Granulocytes/100 WBC (Bld) 73.9 % Normal 40.0-80.0 [facility] Comment on above: Performed By: #### H TIERA PT, CMP3 ####[address] [id number] Lymphocytes (Bld) [#/Vol] 3.0 10*3/uL Normal 1.0-4.3 [facility] Comment on above: Performed By: #### H TIERA PT, CMP3 ####[address] [address] Lymphocytes/100 WBC (Bld) 20.6 % Normal 20.0-40.0 [facility] Comment on above: Performed By: #### H EMDHeydi PT, CMP3 ####[address] [address] Monocytes (Bld) [#/Vol] 0.6 10*3/uL Normal 0.0-0.8 [facility] Comment on above: Performed By: #### H EMDF PT, CMP3 ####[address] [address] Monocytes/100 WBC (Bld) 3.9 % Normal 2.0-10.0 [facility] Comment on above: Performed By: #### H EMDF PT, CMP3 ####[address] [address] Platelet mean volume (Bld) [Entitic vol] 8.5 fL Normal 7.4-12.4 [facility] Comment on above: Result Comment: MPV is a calculated measurement using platelet volume ratio. Performed By: #### H EMDHeydi PT, CMP3 ####[address] Platelets (Bld) [#/Vol] 411 10*3/uL Normal 140-440 [facility] Comment on above: Performed By: #### H EMDHeydi PT, CMP3 ####[address] [place], [place] Erythrocyte distribution width (RBC) [Ratio] 17.0 % High 11.5-14.5 [facility] Comment on above: Performed By: #### H TIERA PT, CMP3 ####[address] Hematocrit (Bld) [Volume fraction] 37.4 % Low 40.0-52.0 [facility] Comment on above: Performed By: #### H TIERA PT, CMP3 ####[address] Hemoglobin (Bld) [Mass/Vol] 12.1 g/dL Low 13.0-18.0 [facility] Comment on above: Performed By: #### H TIERA PT, CMP3 ####[address] [place], [place] MCH (RBC) [Entitic mass] 26.2 pg Normal 26.0-34.0 [facility] Comment on above: Performed By: #### H EMDHeydi PT, CMP3 ####[address] [place], [place] MCHC 32.3 % Normal 32.0-36.0 [facility] Comment on above: Performed By: #### H TIERA PT, CMP3 ####[address] MCV (RBC) [Entitic vol] 81.1 fL Normal 80.0-98.0 [facility] Comment on above: Performed By: #### H EMDHeydi PT, CMP3 ####[address] RBC (Bld) [#/Vol] 4.61 10*6/uL Normal 4.40-5.90 [facility] Comment on above: Performed By: #### H BIMALF PT, CMP3 ####[address] [place], [place] WBC (Bld) [#/Vol] 14.5 10*3/uL High 3.6-10.7 [facility] Comment on above: Performed By: #### H BIMALF PT, CMP3 ####[address] [place], [place] Prothrombin Timeon INR 1.9 High 0.9-1.1 [facility] Comment on above: Result Comment: [...] Performed By: #### H TIERA PT, CMP3 ####[address] PT Coag (PPP) [Time] 18.9 s High 9.0-12.0 [facility] Comment on above: Result Comment: . Performed By: #### H TIERA PT, CMP3 ####[address] [place], [place] Protime-INRon 03-02-2022 INR Coag (Bld) [Relative time] 1.9 {INR} High [facility] Comment on above: Recommended Anticoag ulant [...] of laboratory results Abnormal [facility] PT Coag (PPP) [Time] 18.9 s High 9.0 - 12.0 s [facility] Comment on above: . Test Performed by [facility], [address] [place] [id number] [place] [address] LAB [facility] Laboratory - CoagulationOrde red By: Carlos Cavazos on 02-20-2022 INR Coag (Bld) [Relative time] 2.6 {INR} [facility] Comment on above: Critical Value > 4.0 Whole blood prothrombin time Ordered By: Carlos Cavazos on 02-20-2022 PT Coag (Bld) [Time] 30.1 s 11.7-14.9 [facility] Laboratory - CoagulationOrde red By: Carlos Cavazos on 02-13-2022 INR Coag (Bld) [Relative time] 2.3 {INR} [facility] Comment on above: Critical Value > 4.0 Whole blood prothrombin time Ordered By: Carlos Cavazos on 02-13-2022 PT Coag (Bld) [Time] 26.7 s 11.7-14.9 [facility] Laboratory - CoagulationOrde red By: Carlos Cavazos on 02-06-2022 INR Coag (Bld) [Relative time] 2.3 {INR} [facility] Comment on above: Critical Value > 4.0 Whole blood prothrombin time Ordered By: Carlos Cavazos on 02-06-2022 PT Coag (Bld) [Time] 26.6 s 11.7-14.9 [facility] Laboratory - Coagulationon 0 01-30-2022 INR Coag (Bld) [Relative time] 1.7 {INR} [facility] Work Phone: Comment on above: Critical Value > 4.0 Whole blood prothrombin time on 01-30-2022 PT Coag (Bld) [Time] 20.1 s 11.7-14.9 [facility] Work Phone: Laboratory - Coagulationon 0 01-26-2022 INR Coag (Bld) [Relative time] 1.8 {INR} [facility] Work Phone: Comment on above: Critical Value > 4.0 Whole blood prothrombin time on 01-26-2022 PT Coag (Bld) [Time] 21.8 s 11.7-14.9 [facility] Work Phone: Laboratory - Coagulationon 0 01-19-2022 INR Coag (Bld) [Relative time] 2.2 {INR} [facility] Work Phone: Comment on above: Critical Value > 4.0 Whole blood prothrombin time on 01-19-2022 PT Coag (Bld) [Time] 25.7 s 11.7-14.9 [facility] Work Phone: INR in Blood by Coagulation assayon 01-10-2022 INR Coag (Bld) [Relative time] 1.8 {INR} [facility] Work Phone: Laboratory - Coagulationon 0 01-10-2022 PT Coag (PPP) [Time] 20.9 s 11.7-14.9 [facility] Work Phone: Basophil percentageon 2021 Chloride [Moles/Vol] 107 mmol/L 98-107 [facility] Work Phone: Glucose [Mass/Vol] 82 mg/dL 74-106 [facility] Work Phone: Potassium [Moles/Vol] 3.4 mmol/L 3.5-5.1 [facility] Work Phone: Sodium [Moles/Vol] 143 mmol/L 136-145 [facility] Work Phone: WBC (Bld) [#/Vol] 10.4 10*3/uL 4.4-11.0 [facility] Work Phone: Blood erythrocytes count (nu mber/volume)on 01-05-2022 RBC (Bld) [#/Vol] 4.27 10*6/uL 4.6-6.2 [facility] Work Phone: Blood hemoglobin measurement (mass/volume)on 01-05-2022 Hemoglobin (Bld) [Mass/Vol] 11.2 g/dL 13.0-16.5 [facility] Work Phone: Blood platelet mean volumeon 01-05-2022 Platelet mean volume (Bld) [Entitic vol] 10.3 fL 6.2-12.0 [facility] Work Phone: Determination of erythrocyte mean corpuscular volume (MCV)on 01-05-2022 MCV (RBC) [Entitic vol] 84.8 fL 80-94 [facility] Work Phone: Hematocrit Auto (Bld) [Volum e fraction]on 01-05-2022 Hematocrit (Bld) [Volume fraction] 36.2 % 40-54 [facility] Work Phone: Laboratory - Chemistry and C hemistry - challengeon 01-05-2022 CO2 [Moles/Vol] 28.0 mmol/L 21.0-32.0 [facility] Work Phone: Urea nitrogen/Creatinine [Mass ratio] 20.0 mg/mg 10-20 [facility] Work Phone: Laboratory - Hematology and Cell countson 01-05-2022 Erythrocyte distribution width (RBC) [Entitic vol] 51.8 fL 35.1-43.9 [facility] Work Phone: Erythrocyte distribution width (RBC) [Ratio] 16.8 % 11.6-14.6 [facility] Work Phone: MCH (RBC) [Entitic mass] 26.2 pg 27.0-32.0 [facility] Work Phone: MCHC Auto (RBC) [Mass/Vol]on 01-05-2022 MCHC (RBC) [Mass/Vol] 30.9 g/dL 32-36 [facility] Work Phone: No Panel Informationon 01-05 Estimated GFR (MDRD) Amer 133 mL/min >60 [facility] Work Phone: Comment on above: GFR Calc Estimated GFR (MDRD) Non-Af Amer 110 mL/min >60 [facility] Work Phone: Comment on above: Non- GFR Calc Platelets bldon 01-05-2022 Platelets (Bld) [#/Vol] 373 10*3/uL 150-450 [facility] Work Phone: Serum or plasma calcium oral urement (mass/volume)on 01-05-2022 Calcium [Mass/Vol] 8.8 mg/dL 8.5-10.1 [facility] Work Phone: Serum or plasma creatinine m easurement (mass/volume)on 01-05-2022 Creatinine [Mass/Vol] 0.75 mg/dL 0.70-1.30 [facility] Work Phone: Comment on above: The validity of the calculated GFR & GFRAA in patients over 70 years has not been determined. Clinical correlation is essential. Serum or plasma urea nitroge n measurement (mass/volume)on 01-05-2022 Urea nitrogen [Mass/Vol] 15 mg/dL 7-18 [facility] Work Phone: Thin prep Papanicolaou smear with manual screeningon 01-05-2022 Thin prep Papanicolaou smear with manual screening 8 5-15 [facility] Work Phone: Laboratory - Coagulationon 0 12-30-2021 INR Coag (Bld) [Relative time] 2.0 {INR} [facility] Work Phone: Comment on above: Critical Value > 4.0 Whole blood prothrombin time on 12-30-2021 PT Coag (Bld) [Time] 23.7 s 11.7-14.9 [facility] Work Phone: Basophil percentageon 2021 Chloride [Moles/Vol] 106 mmol/L 98-107 [facility] Work Phone: Glucose [Mass/Vol] 91 mg/dL 74-106 [facility] Work Phone: Potassium [Moles/Vol] 3.4 mmol/L 3.5-5.1 [facility] Work Phone: Sodium [Moles/Vol] 141 mmol/L 136-145 [facility] Work Phone: WBC (Bld) [#/Vol] 10.2 10*3/uL 4.4-11.0 [facility] Work Phone: Blood erythrocytes count (nu mber/volume)on 12-28-2021 RBC (Bld) [#/Vol] 4.22 10*6/uL 4.6-6.2 [facility] Work Phone: Blood hemoglobin measurement (mass/volume)on 12-28-2021 Hemoglobin (Bld) [Mass/Vol] 11.2 g/dL 13.0-16.5 [facility] Work Phone: Blood platelet mean volumeon 12-28-2021 Platelet mean volume (Bld) [Entitic vol] 10.1 fL 6.2-12.0 [facility] Work Phone: Determination of erythrocyte mean corpuscular volume (MCV)on 12-28-2021 MCV (RBC) [Entitic vol] 82.7 fL 80-94 [facility] Work Phone: Hematocrit Auto (Bld) [Volum e fraction]on 12-28-2021 Hematocrit (Bld) [Volume fraction] 34.9 % 40-54 [facility] Work Phone: Laboratory - Chemistry and C hemistry - challengeon 12-28-2021 CO2 [Moles/Vol] 30.0 mmol/L 21.0-32.0 [facility] Work Phone: Urea nitrogen/Creatinine [Mass ratio] 33.7 mg/mg 10-20 [facility] Work Phone: Laboratory - Hematology and Cell countson 12-28-2021 Erythrocyte distribution width (RBC) [Entitic vol] 49.1 fL 35.1-43.9 [facility] Work Phone: Erythrocyte distribution width (RBC) [Ratio] 16.5 % 11.6-14.6 [facility] Work Phone: MCH (RBC) [Entitic mass] 26.5 pg 27.0-32.0 [facility] Work Phone: MCHC Auto (RBC) [Mass/Vol]on 12-28-2021 MCHC (RBC) [Mass/Vol] 32.1 g/dL 32-36 [facility] Work Phone: No Panel Informationon 12-28 Estimated GFR (MDRD) Amer 174 mL/min >60 [facility] Work Phone: Comment on above: GFR Calc Estimated GFR (MDRD) Non-Af Amer 143 mL/min >60 [facility] Work Phone: Comment on above: Non- GFR Calc Platelets bldon 12-28-2021 Platelets (Bld) [#/Vol] 339 10*3/uL 150-450 [facility] Work Phone: Serum or plasma calcium oral urement (mass/volume)on 12-28-2021 Calcium [Mass/Vol] 8.6 mg/dL 8.5-10.1 [facility] Work Phone: Serum or plasma creatinine m easurement (mass/volume)on 12-28-2021 Creatinine [Mass/Vol] 0.59 mg/dL 0.70-1.30 [facility] Work Phone: Comment on above: The validity of the calculated GFR & GFRAA in patients over 70 years has not been determined. Clinical correlation is essential. Serum or plasma urea nitroge n measurement (mass/volume)on 12-28-2021 Urea nitrogen [Mass/Vol] 20 mg/dL 7-18 [facility] Work Phone: Thin prep Papanicolaou smear with manual screeningon 12-28-2021 Thin prep Papanicolaou smear with manual screening 5 5-15 [facility] Work Phone: CULTURE BLOODon 12-27-2021 Microscopic examination of blood, culture CULTURE BLOOD --> Status: F No growth at 5 days. Normal [facility] Comment on above: Performed By: #### C /BLD #### [facility] [employer] [facility] [address] [place] [address] Laboratory - Coagulationon 0 12-26-2021 INR Coag (Bld) [Relative time] 1.7 {INR} [facility] Work Phone: Comment on above: Critical Value > 4.0 Whole blood prothrombin time on 12-26-2021 PT Coag (Bld) [Time] 20.8 s 11.7-14.9 [facility] Work Phone: Basic Metabolic Panelon 12-05 Calcium [Mass/Vol] 8.8 mg/dL Normal 8.4-10.4 [facility] Comment on above: Performed By: #### C RP2, ESR, HEMDF, BMP3 ####[facility] [id number] [place] Anion gap [Moles/Vol] 6 mmol/L Normal 3-13 [facility] Comment on above: Performed By: #### C RP2, ESR, HEMDF, BMP3 ####[employer] [address] [place] CO2 [Moles/Vol] 27 mmol/L Normal 22-30 [facility] Comment on above: Performed By: #### C RP2, ESR, HEMDF, BMP3 ####[facility] [address] [place] Glucose [Mass/Vol] 100 mg/dL Normal 70-100 [facility] Comment on above: Performed By: #### C RP2, ESR, HEMDF, BMP3 ####[address] [place], [place] Urea nitrogen [Mass/Vol] 18 mg/dL High 7-17 [facility] Comment on above: Performed By: #### C RP2, ESR, HEMDF, BMP3 ####[address] [place] [address] Creatinine [Mass/Vol] 0.73 mg/dL Normal 0.52-1.25 [facility] Comment on above: Performed By: #### C RP2, ESR, HEMDF, BMP3 ####[facility] [employer] [id number] [place], [place] eGFR OTHER > 90.0 Normal >60 [facility] Comment on above: Result Comment: KDIG [...] C RP2, ESR, HEMDF, BMP3 ####[facility] [address] [place], [place] GFR/1.73 sq M.predicted among blacks MDRD (S/P/Bld) [Vol rate/Area] mL/min/{1.73_m2} Normal >60 [facility] Comment on above: Performed By: #### C RP2, ESR, HEMDF, BMP3 ####[facility] [address] [place], [place] Potassium [Moles/Vol] 3.7 mmol/L Normal 3.5-5.1 [facility] Comment on above: Performed By: #### C RP2, ESR, HEMDF, BMP3 ####[facility] [employer] [address] [place], [place] Chloride [Moles/Vol] 106 mmol/L Normal 98-107 [facility] Comment on above: Performed By: #### C RP2, ESR, HEMDF, BMP3 ####[facility] [place] [address] Sodium [Moles/Vol] 139 mmol/L Normal 135-145 [facility] Comment on above: Performed By: #### C RP2, ESR, HEMDF, BMP3 ####[facility] [place] [address] Anion gap [Moles/Vol] 6 mmol/L 3 - 13 mmol/L [facility] Calcium [Mass/Vol] 8.8 mg/dL 8.4 - 10. 4 mg/dL [facility] Chloride [Moles/Vol] 106 mmol/L 98 - 10 7 mmol/L [facility] CO2 [Moles/Vol] 27 mmol/L 22 - 30 mmol/L [facility] Creatinine [Mass/Vol] 0.73 mg/dL 0.52 - 1.25 mg/dL [facility] eGFR mL/min 60 - P INF mL/min [facility] EGFR IF NonAfrican Greenlandic mL/min 60 - PINF [facility] Comment on above: KDIGO guidelines pro [...] 2021 Basophil percentage 25-50 SEEN /hpf 0-5 [facility] Work Phone: Chloride [Moles/Vol] 106 mmol/L 98-[address] [facility] Work Phone: Glucose [Mass/Vol] 93 mg/dL 74-106 [facility] Work Phone: Potassium [Moles/Vol] 3.5 mmol/L 3.5-5.1 [facility] Work Phone: [phone] Sodium [Moles/Vol] 140 mmol/L 136-145 [facility] Work Phone: WBC (Bld) [#/Vol] 9.6 10*3/uL 4.4-11.0 [facility] Work Phone: Bilirubin Test strip Ql (U)o n 12-22-2021 Bilirubin Ql (U) Negative Negative [facility] Work Phone: Blood erythrocytes count (nu mber/volume)on 12-22-2021 RBC (Bld) [#/Vol] 4.34 10*6/uL 4.6-6.2 [facility] Work Phone: Blood hemoglobin measurement (mass/volume)on 12-22-2021 Hemoglobin (Bld) [Mass/Vol] 11.5 g/dL 13.0-16.5 [facility] Work Phone: Blood platelet mean volumeon 12-22-2021 Platelet mean volume (Bld) [Entitic vol] 10.8 fL 6.2-12.0 [facility] Work Phone: C-Reactive Proteinon 022 CRP [Mass/Vol] 27.2 mg/L High 0.0-9.9 [facility] Comment on above: Result Comment: . Performed By: #### C RP2, ESR, HEMDF, BMP3 ####[employer] [address] [place] [address] CRP [Mass/Vol] 27.2 mg/L High 0 - 9.9 mg/L [facility] Comment on above: . CBC with Auto [...] - 10.7 10*3/uL [facility] Test Performed by [facility], [address] [place] [id number] [facility] COVID-19, Flu A/B, and RSV C omboon 12-22-2021 Influenza A by PCR Not detected [facility] A Influenza B by PCR Not detected [facility] A RSV PCR Not Detected. Expected Result: Not Detected _ Method: Real-time, RT-PCR This assay was developed by [employer] a division [employer] and distributed under an Emergency Use Authorization (EUA) granted by the FDA for the qualitative detection of nucleic acids from SARS-CoV-2, Influenza A, Influenza B, and Respiratory Syncytial Virus. Provider and patient fact sheets can be found at https://www.fda.gov/media /019024/download and https://www.fda.gov/media /129428/download. [facility] SARS-CoV-2 (COVID-19) RNA MEGAN+probe Ql (Unsp spec) Not detected [facility] Test Performed by [address] [address] [facility] CR Foot Complete 3+ Views Le fton 12-22-2021 CR Foot Complete 3+ Views Left Patient Name: ANDREW SIFUENTES Diagnostic Radiology ACCESSION EXAM DATE/TIME PROCEDURE ORDERING PROVIDER [id number] 12/22/2021 00:09 EDT CR Foot Complete 3+ SANDY HIDALGO, TRAVIS Views Left CPT code 02550 Reason For Exam (CR Foot Complete 3+ [...] Transcribed Date and Time: 12/22/2021 0:21 Normal [facility] Calcium oxalate crystals det ection in urine sediment by light microscopyon 12-22-2021 Calcium oxalate crystals LM Ql (Urine sed) 1+ /hpf [facility] Work Phone: Determination of erythrocyte mean corpuscular volume (MCV)on 12-22-2021 MCV (RBC) [Entitic vol] 84.3 fL 80-94 [facility] Work Phone: ED Provider Noteon [...] 79.4 kg (175 lb), SpO2 96 %. [id number] in no acute distress. Alert and oriented [...] [employer] Sharon Olivia MD 12/22/21 0305 [facility] ED Provider Note [facility] EMERGENCY DEPT EMERGENCY DEPARTMENT ENCOUNTER Pt Name: Andrew Sifuentes Birthdate 1950 Date of evaluation: 12/21/2021 Provider: SANIA Lou CHIEF COMPLAINT Chief Complaint Patient presents with Osteomyelitis Patient [facility], facility did xrays on left [...] Hemorrhoids Hydrocephalus, adult (HCC) Kidney stone Neuropathy BEVELER (ventriculoperitoneal) shunt status SURGICAL HISTORY Past Surgical [...] use: No Sexual activity: Not Currently SCREENINGS [place] Coma Scale Eye Opening: Spontaneous Best Verbal Response: Confused Best Motor Response: Obeys commands [place] Coma Scale Score: 14 Patient symptoms are [...] soft. Tenderness: (more content not included)... Normal [facility] Hematocrit Auto (Bld) [Volum e fraction]on 12-22-2021 Hematocrit (Bld) [Volume fraction] 36.6 % 40-54 [facility] Work Phone: Hemogram w/ Autodiffon 12-22 Abs Baso Cnt 0.1 10*3/uL Normal 0.0-0.2 [facility] Comment on above: Performed By: #### C RP2, ESR, HEMDF, BMP3 ####[employer] [id number] [place] [address] Abs Neutrophile Cnt 5.9 10*3/uL Normal 1.8-7.0 [facility] Comment on above: Performed By: #### C RP2, ESR, HEMDF, BMP3 ####[address] [address] Basophils/100 WBC (Bld) 0.7 % Normal 0.0-2.0 [facility] Comment on above: Performed By: #### C RP2, ESR, HEMDF, BMP3 ####[address] [address] Eosinophils (Bld) [#/Vol] 0.2 10*3/uL Normal 0.0-0.5 [facility] Comment on above: Performed By: #### C RP2, ESR, HEMDF, BMP3 ####[address] [address] Eosinophils/100 WBC (Bld) 2.3 % Normal 1.0-6.0 [facility] Comment on above: Performed By: #### C RP2, ESR, HEMDF, BMP3 ####[address] Erythrocyte distribution width (RBC) [Ratio] 17.5 % High 11.5-14.5 [facility] Comment on above: Performed By: #### C RP2, ESR, HEMDF, BMP3 ####[address] [address] Granulocytes/100 WBC (Bld) 57.8 % Normal 40.0-80.0 [facility] Comment on above: Performed By: #### C RP2, ESR, HEMDF, BMP3 ####[address] [address] Hematocrit (Bld) [Volume fraction] 33.3 % Low 40.0-52.0 [facility] Comment on above: Performed By: #### C RP2, ESR, HEMDF, BMP3 ####[address] [address] Hemoglobin (Bld) [Mass/Vol] 11.0 g/dL Low 13.0-18.0 [facility] Comment on above: Performed By: #### C RP2, ESR, HEMDF, BMP3 ####[address] Lymphocytes (Bld) [#/Vol] 3.3 10*3/uL Normal 1.0-4.3 [facility] Comment on above: Performed By: #### C RP2, ESR, HEMDF, BMP3 ####[address] Lymphocytes/100 WBC (Bld) 33.0 % Normal 20.0-40.0 [facility] Comment on above: Performed By: #### C RP2, ESR, HEMDF, BMP3 ####[address] MCH (RBC) [Entitic mass] 26.5 pg Normal 26.0-34.0 [facility] Comment on above: Performed By: #### C RP2, ESR, HEMDF, BMP3 ####[address] MCHC 33.1 % Normal 32.0-36.0 [facility] Comment on above: Performed By: #### C RP2, ESR, HEMDF, BMP3 ####[address] MCV (RBC) [Entitic vol] 80.2 fL Normal 80.0-98.0 [facility] Comment on above: Performed By: #### C RP2, ESR, HEMDF, BMP3 ####[address] Monocytes (Bld) [#/Vol] 0.6 10*3/uL Normal 0.0-0.8 [facility] Comment on above: Performed By: #### C RP2, ESR, HEMDF, BMP3 ####[address] Monocytes/100 WBC (Bld) 6.2 % Normal 2.0-10.0 [facility] Comment on above: Performed By: #### C RP2, ESR, HEMDF, BMP3 ####[facility] [id number] [place], [place] Platelet mean volume (Bld) [Entitic vol] 8.0 fL Normal 7.4-12.4 [facility] Comment on above: Result Comment: MPV is a calculated measurement using platelet volume ratio. Performed By: #### C RP2, ESR, HEMDF, BMP3 ####[facility] [employer] [id number] [place], [place] Platelets (Bld) [#/Vol] 368 10*3/uL Normal 140-440 [facility] Comment on above: Performed By: #### C RP2, ESR, HEMDF, BMP3 ####[facility] [employer] [id number] [place], [place] RBC (Bld) [#/Vol] 4.15 10*6/uL Low 4.40-5.90 [facility] Comment on above: Performed By: #### C RP2, ESR, HEMDF, BMP3 ####[facility] [employer] [id number] [place], [place] WBC (Bld) [#/Vol] 10.1 10*3/uL Normal 3.6-10.7 [facility] Comment on above: Performed By: #### C RP2, ESR, HEMDF, BMP3 ####[facility] [employer] [id number] [place], [place] Ketones Test strip Ql (U)on 12-22-2021 Ketones Ql (U) Negative Negative [facility] Work Phone: Laboratory - Chemistry and C hemistry - challengeon 12-22-2021 CO2 [Moles/Vol] 27.0 mmol/L 21.0-32.0 [facility] Work Phone: Urea nitrogen/Creatinine [Mass ratio] 22.5 mg/mg 10-20 [facility] Work Phone: Laboratory - Hematology and Cell countson 12-22-2021 Erythrocyte distribution width (RBC) [Entitic vol] 49.1 fL 35.1-43.9 [facility] Work Phone: Erythrocyte distribution width (RBC) [Ratio] 16.1 % 11.6-14.6 [facility] Work Phone: MCH (RBC) [Entitic mass] 26.5 pg 27.0-32.0 [facility] Work Phone: MCHC Auto (RBC) [Mass/Vol]on 12-22-2021 MCHC (RBC) [Mass/Vol] 31.4 g/dL 32-36 [facility] Work Phone: Mucus LM Ql (Urine sed)on Mucus Ql (Urine sed) 0 SEEN /hpf [facility] Work Phone: Nitrite Test strip Ql (U)on 12-22-2021 Nitrite Ql (U) Positive Negative [facility] Work Phone: No Panel Informationon 12-22 Estimated GFR (MDRD) Amer 152 mL/min >60 [facility] Work Phone: Comment on above: GFR Calc Estimated GFR (MDRD) Non-Af Amer 125 mL/min >60 [facility] Work Phone: Comment on above: Non- GFR Calc Interpretation and review of laboratory results Abnormal [facility] Test Performed by [facility], [address] [place] [id number] [place] [address] LAB [facility] Platelets bldon 12-22-2021 Platelets (Bld) [#/Vol] 317 10*3/uL 150-450 [facility] Work Phone: Protein Test strip Ql (U)on 12-22-2021 Protein Ql (U) 30 mg/dl Negative [facility] Work Phone: SARS-CoV-2, Flu A/B and RSVo n 12-22-2021 SARS-CoV-2 (COVID-19) RNA MEGAN+probe Ql (Unsp spec) SARS-CoV-2 --> Status: F Not Detected. Flu A PCR --> Status: F Not Detected. Flu B PCR --> Status: F Not Detected. RSV PCR --> Status: F Not Detected. Expected Result: Not Detected _ Method: Real-time, RT-PCR This assay was developed by [employer] a division [employer] and distributed under an Emergency Use Authorization (EUA) granted by the FDA for the qualitative detection of nucleic acids from SARS-CoV-2, Influenza A, Influenza B, and Respiratory Syncytial Virus. Provider and patient fact sheets can be found at https://www.fda.gov/media /438715/download and https://www.fda.gov/media /137009/download. Expected Result: Not Detected _ Method: Real-time, RT-PCR This assay was developed by [employer], a division of [employer] and distributed under an Emergency Use Authorization (EUA) granted by the FDA for the qualitative detection of nucleic acids from SARS-CoV-2, Influenza A, Influenza B, and Respiratory Syncytial Virus. Provider and patient fact sheets can be found at https://www.fda.gov/media /938672/download and https://www.fda.gov/media /377194/download. Normal [facility] Comment on above: Performed By: #### C VFLR ####[facility] [place] [address], [id number] Sed Rateon 12-22-2021 Sed Rate 48 mm/h High 0-10 [facility] Comment on above: Performed By: #### C RP2, ESR, HEMDF, BMP3 ####[address] [place] [address] Sedimentation Rateon 022 Interpretation and review of laboratory results Abnormal [facility] Sed Rate 48 mm/h High 0 - 10 mm/h [facility] Test Performed by [facility], [address] [place] [address] [facility] Serum or plasma calcium oral urement (mass/volume)on 12-22-2021 Calcium [Mass/Vol] 8.6 mg/dL 8.5-10.1 [facility] Work Phone: Serum or plasma creatinine m easurement (mass/volume)on 12-22-2021 Creatinine [Mass/Vol] 0.67 mg/dL 0.70-1.30 [facility] Work Phone: Comment on above: The validity of the calculated GFR & GFRAA in patients over 70 years has not been determined. Clinical correlation is essential. Serum or plasma urea nitroge n measurement (mass/volume)on 12-22-2021 Urea nitrogen [Mass/Vol] 15 mg/dL -18 [facility] Work Phone: Squamous epithelial cells de tection in urine sediment by light microscopyon 12-22-2021 Epithelial cells.squamous LM Ql (Urine sed) 0-5 SEEN /hpf 0-5 [facility] Work Phone: Thin prep Papanicolaou smear with manual screeningon 12-22-2021 Thin prep Papanicolaou smear with manual screening 7 5-15 [facility] Work Phone: Urine blood detectionon 12-05 RBC Ql (U) 150 /ul Negative [facility] Work Phone: RBC Ql (U) 10-25 SEEN /hpf 0-5 [facility] Work Phone: Urine clarityon 12-22-2021 Clarity (U) Sl. Cloudy Clear [facility] Work Phone: Urine color determinationon 12-22-2021 Color (U) Yellow Yellow [facility] Work Phone: Urine glucose detectionon Glucose Ql (U) Normal mg/dl Normal [facility] Work Phone: Urine leukocyte esterase det ection by dipstickon 12-22-2021 Leukocyte esterase Test strip Ql (U) 500 /ul Negative [facility] Work Phone: Urine pHon 12-22-2021 pH (U) 6.0 [pH] 5.0 - 8.0 [facility] Work Phone: Urine sediment bacteria coun t by microscopy (number/high power field)on 12-22-2021 Bacteria LM.HPF (Urine sed) [#/Area] 2 /[HPF] None Seen [facility] Work Phone: Urine specific gravity measu rementon 12-22-2021 Specific gravity (U) [Rel density] 1.020 1.002-1.030 [facility] Work Phone: Urobilinogen Auto test strip Ql (U)on 12-22-2021 Urobilinogen Ql (U) Normal mg/dl Normal [facility] Work Phone: XR FOOT LEFT (MIN 3 VIEWS)on 12-22-2021 Patient Name: ANDREW SIFUENTES Diagnostic Radiology ACCESSION EXAM DATE/TIME PROCEDURE ORDERING PROVIDER [id number] 12/22/2021 00:09 EDT CR Foot Complete 3+ SANDY HIDALGO, TRAVIS Views Left CPT code 73011 Reason For Exam (CR Foot Complete 3+ [...] Radiology ACCESSION EXAM DATE/TIME PROCEDURE ORDERING PROVIDER [id number] 12/22/2021 00:09 EDT CR Foot Complete 3+ SANDY HIDALGO, TRAVIS Views Left CPT code 19564 Reason For Exam (CR Foot Complete 3+ [...] Transcribed Date and Time: 12/22/2021 0:21 [facility] Work Phone: Radiology Study observation (narrative) [facility] Work Phone: XR FOOT LEFT (MIN 3 VIEWS)Or dered By: Albert Solano on 12-22-2021 [facility] Work Phone: Basophil percentageon 2021 Chloride [Moles/Vol] 103 mmol/L 98-[address] [facility] [address] [facility] Work Phone: Glucose [Mass/Vol] 92 mg/dL 74-106 [facility] Work Phone: Potassium [Moles/Vol] 3.5 mmol/L 3.5-5.[address] [facility] Work Phone: Sodium [Moles/Vol] 138 mmol/L 136-145 [facility] Work Phone: WBC (Bld) [#/Vol] 11.2 10*3/uL 4.4-11.0 [facility] Work Phone: Blood erythrocytes count (nu mber/volume)on 12-19-2021 RBC (Bld) [#/Vol] 4.50 10*6/uL 4.6-6.2 [facility] Work Phone: Blood hemoglobin measurement (mass/volume)on 12-19-2021 Hemoglobin (Bld) [Mass/Vol] 12.2 g/dL 13.0-16.5 [facility] Work Phone: Blood platelet mean volumeon 12-19-2021 Platelet mean volume (Bld) [Entitic vol] 11.3 fL 6.2-12.0 [facility] Work Phone: Determination of erythrocyte mean corpuscular volume (MCV)on 12-19-2021 MCV (RBC) [Entitic vol] 85.6 fL 80-94 [facility] Work Phone: Hematocrit Auto (Bld) [Volum e fraction]on 12-19-2021 Hematocrit (Bld) [Volume fraction] 38.5 % 40-54 [facility] Work Phone: Laboratory - Chemistry and C hemistry - challengeon 12-19-2021 CO2 [Moles/Vol] 30.0 mmol/L 21.0-32.0 [facility] Work Phone: Urea nitrogen/Creatinine [Mass ratio] 27.1 mg/mg 10-20 [facility] Work Phone: Laboratory - Hematology and Cell countson 12-19-2021 Erythrocyte distribution width (RBC) [Entitic vol] 50.5 fL 35.1-43.9 [facility] Work Phone: Erythrocyte distribution width (RBC) [Ratio] 16.0 % 11.6-14.6 [facility] Work Phone: MCH (RBC) [Entitic mass] 27.1 pg 27.0-32.0 [facility] Work Phone: MCHC Auto (RBC) [Mass/Vol]on 12-19-2021 MCHC (RBC) [Mass/Vol] 31.7 g/dL 32-36 [facility] Work Phone: No Panel Informationon 12-19 Estimated GFR (MDRD) Amer 153 mL/min >60 [facility] Work Phone: Comment on above: GFR Calc Estimated GFR (MDRD) Non-Af Amer 126 mL/min >60 [facility] Work Phone: Comment on above: Non- GFR Calc Platelets bldon 12-19-2021 Platelets (Bld) [#/Vol] 363 10*3/uL 150-450 [facility] Work Phone: Serum or plasma calcium oral urement (mass/volume)on 12-19-2021 Calcium [Mass/Vol] 9.5 mg/dL 8.5-10.1 [facility] Work Phone: Serum or plasma creatinine m easurement (mass/volume)on 12-19-2021 Creatinine [Mass/Vol] 0.66 mg/dL 0.70-1.30 [facility] Work Phone: Comment on above: The validity of the calculated GFR & GFRAA in patients over 70 years has not been determined. Clinical correlation is essential. Serum or plasma urea nitroge n measurement (mass/volume)on 12-19-2021 Urea nitrogen [Mass/Vol] 18 mg/dL 7-18 [facility] Work Phone: Thin prep Papanicolaou smear with manual screeningon 12-19-2021 Thin prep Papanicolaou smear with manual screening 5 5-15 [facility] Work Phone: Laboratory - Coagulationon 0 12-12-2021 INR Coag (Bld) [Relative time] 2.0 {INR} [facility] Work Phone: Comment on above: Critical Value > 4.0 Whole blood prothrombin time on 12-12-2021 PT Coag (Bld) [Time] 23.9 s 11.7-14.9 [facility] Work Phone: ANES POSTPROC EVALon 022 ANES POSTPROC EVAL Normal [facility] Laboratory - Coagulationon 0 12-08-2021 INR Coag (Bld) [Relative time] 1.8 {INR} [facility] Work Phone: Comment on above: Critical Value > 4.0 Whole blood prothrombin time on 12-08-2021 PT Coag (Bld) [Time] 21.0 s 11.7-14.9 [facility] Work Phone: Absolute lymphocyte counton 12-05-2021 Lymphocytes Auto (Unsp spec) [#/Vol] 2.97 10*3/uL 0.83-4.51 [facility] Work Phone: Basophil percentageon 2021 Basophils/100 WBC (Bld) 0.6 % 0-1 [facility] Work Phone: Chloride [Moles/Vol] 106 mmol/L 98-107 [facility] Work Phone: Eosinophils/100 WBC (Bld) 2.3 % 0-5 [facility] Work Phone: Glucose [Mass/Vol] 107 mg/dL 74-106 [facility] Work Phone: Comment on above: Fasting Glucose resu lt from 100 to 125 mg/dL suggests IMPAIRED HOMEOSTASIS per A.D.A. criteria. Neutrophils (Bld) [#/Vol] 5.6 10*3/uL 2.0-7.7 [facility] Work Phone: [phone] Neutrophils/100 WBC (Bld) 60.2 % 47-70 [facility] Work Phone: Potassium [Moles/Vol] 3.4 mmol/L 3.5-5.1 [facility] Work Phone: Sodium [Moles/Vol] 139 mmol/L 136-145 [facility] Work Phone: [phone] WBC (Bld) [#/Vol] 9.3 10*3/uL 4.4-11.0 [facility] Work Phone: Blood erythrocytes count (nu mber/volume)on 12-05-2021 RBC (Bld) [#/Vol] 4.49 10*6/uL 4.6-6.2 [facility] Work Phone: Blood hemoglobin measurement (mass/volume)on 12-05-2021 Hemoglobin (Bld) [Mass/Vol] 12.1 g/dL 13.0-16.5 [facility] Work Phone: Blood lymphocytes/100 leukoc yteson 12-05-2021 Lymphocytes/100 WBC (Bld) 32.0 % 19-41 [facility] Work Phone: Blood monocytes/100 leukocyt eson 12-05-2021 Monocytes/100 WBC (Bld) 4.7 % 0-10 [facility] Work Phone: Blood platelet mean volumeon 12-05-2021 Platelet mean volume (Bld) [Entitic vol] 10.8 fL 6.2-12.0 [facility] Work Phone: Determination of erythrocyte mean corpuscular volume (MCV)on 12-05-2021 MCV (RBC) [Entitic vol] 84.9 fL 80-94 [facility] Work Phone: Hematocrit Auto (Bld) [Volum e fraction]on 12-05-2021 Hematocrit (Bld) [Volume fraction] 38.1 % 40-54 [facility] Work Phone: INR in Blood by Coagulation assayon 12-05-2021 INR Coag (Bld) [Relative time] 1.8 {INR} [facility] Work Phone: Laboratory - Chemistry and C hemistry - challengeon 12-05-2021 CO2 [Moles/Vol] 29.0 mmol/L 21.0-32.0 [facility] Work Phone: Urea nitrogen/Creatinine [Mass ratio] 25.4 mg/mg 10-20 [facility] Work Phone: Laboratory - Coagulationon 0 12-05-2021 PT Coag (PPP) [Time] 20.5 s 11.7-14.9 [facility] Work Phone: Laboratory - Hematology and Cell countson 12-05-2021 Erythrocyte distribution width (RBC) [Entitic vol] 48.5 fL 35.1-43.9 [facility] Work Phone: Erythrocyte distribution width (RBC) [Ratio] 15.7 % 11.6-14.6 [facility] Work Phone: Immature granulocytes/100 WBC (Bld) 0.200 % 0.0-0.9 [facility] Work Phone: Comment on above: IG% - Immature Granu locytes (promyelocytes, myelocytes and metamyelocytes) > 1% indicates that a LEFT SHIFT is Present. MCH (RBC) [Entitic mass] 26.9 pg 27.0-32.0 [facility] Work Phone: Nucleated RBC/100 WBC (Bld) [Ratio] 0 % 0-5 [facility] Work Phone: MCHC Auto (RBC) [Mass/Vol]on 12-05-2021 MCHC (RBC) [Mass/Vol] 31.8 g/dL 32-36 [facility] Work Phone: No Panel Informationon 12-05 Estimated GFR (MDRD) Amer 133 mL/min >60 [facility] Work Phone: Comment on above: GFR Calc Estimated GFR (MDRD) Non-Af Amer 110 mL/min >60 [facility] Work Phone: Comment on above: Non- GFR Calc Platelets bldon 12-05-2021 Platelets (Bld) [#/Vol] 363 10*3/uL 150-450 [facility] Work Phone: Serum or plasma calcium oral urement (mass/volume)on 12-05-2021 Calcium [Mass/Vol] 9.4 mg/dL 8.5-10.1 [facility] Work Phone: Serum or plasma creatinine m easurement (mass/volume)on 12-05-2021 Creatinine [Mass/Vol] 0.75 mg/dL 0.70-1.30 [facility] Work Phone: Comment on above: The validity of the calculated GFR & GFRAA in patients over 70 years has not been determined. Clinical correlation is essential. Serum or plasma urea nitroge n measurement (mass/volume)on 12-05-2021 Urea nitrogen [Mass/Vol] 19 mg/dL 7-18 [facility] Work Phone: Thin prep Papanicolaou smear with manual screeningon 12-05-2021 Thin prep Papanicolaou smear with manual screening 4 5-15 [facility] Work Phone: Basophil percentageon 2021 Basophil percentage 0 SEEN /hpf 0-5 [facility] Work Phone: Chloride [Moles/Vol] 104 mmol/L 98-107 [facility] Work Phone: Glucose [Mass/Vol] 90 mg/dL 74-106 [facility] Work Phone: Potassium [Moles/Vol] 3.7 mmol/L 3.5-5.1 [facility] Work Phone: Comment on above: Slight Hemolysis, Re sult may be falsely increased. Sodium [Moles/Vol] 138 mmol/L 136-145 [facility] Work Phone: WBC (Bld) [#/Vol] 10.7 10*3/uL 4.4-11.0 [facility] Work Phone: Bilirubin Test strip Ql (U)o n 12-01-2021 Bilirubin Ql (U) Negative Negative [facility] Work Phone: Blood erythrocytes count (nu mber/volume)on 12-01-2021 RBC (Bld) [#/Vol] 4.33 10*6/uL 4.6-6.2 [facility] Work Phone: Blood hemoglobin measurement (mass/volume)on 12-01-2021 Hemoglobin (Bld) [Mass/Vol] 11.6 g/dL 13.0-16.5 [facility] Work Phone: Blood platelet mean volumeon 12-01-2021 Platelet mean volume (Bld) [Entitic vol] 11.2 fL 6.2-12.0 [facility] Work Phone: Determination of erythrocyte mean corpuscular volume (MCV)on 12-01-2021 MCV (RBC) [Entitic vol] 85.2 fL 80-94 [facility] Work Phone: Hematocrit Auto (Bld) [Volum e fraction]on 12-01-2021 Hematocrit (Bld) [Volume fraction] 36.9 % 40-54 [facility] Work Phone: Ketones Test strip Ql (U)on 12-01-2021 Ketones Ql (U) Negative Negative [facility] Work Phone: Laboratory - Chemistry and C hemistry - challengeon 12-01-2021 CO2 [Moles/Vol] 27.0 mmol/L 21.0-32.0 [facility] Work Phone: Urea nitrogen/Creatinine [Mass ratio] 24.0 mg/mg 10-20 [facility] Work Phone: Laboratory - Coagulationon 0 12-01-2021 INR Coag (Bld) [Relative time] 1.6 {INR} [facility] Work Phone: Comment on above: Critical Value > 4.0 Laboratory - Hematology and Cell countson 12-01-2021 Erythrocyte distribution width (RBC) [Entitic vol] 47.9 fL 35.1-43.9 [facility] Work Phone: Erythrocyte distribution width (RBC) [Ratio] 15.5 % 11.6-14.6 [facility] Work Phone: MCH (RBC) [Entitic mass] 26.8 pg 27.0-32.0 [facility] Work Phone: MCHC Auto (RBC) [Mass/Vol]on 12-01-2021 MCHC (RBC) [Mass/Vol] 31.4 g/dL 32-36 [facility] Work Phone: Mucus LM Ql (Urine sed)on Mucus Ql (Urine sed) 0 SEEN /hpf [facility] Work Phone: Nitrite Test strip Ql (U)on 12-01-2021 Nitrite Ql (U) Negative Negative [facility] Work Phone: No Panel Informationon 12-01 Estimated GFR (MDRD) Amer 133 mL/min >60 [facility] Work Phone: Comment on above: GFR Calc Estimated GFR (MDRD) Non-Af Amer 110 mL/min >60 [facility] Work Phone: Comment on above: Non- GFR Calc Platelets bldon 12-01-2021 Platelets (Bld) [#/Vol] 336 10*3/uL 150-450 [facility] Work Phone: Protein Test strip Ql (U)on 12-01-2021 Protein Ql (U) 30 mg/dl Negative [facility] Work Phone: Serum or plasma calcium oral urement (mass/volume)on 12-01-2021 Calcium [Mass/Vol] 9.4 mg/dL 8.5-10.1 [facility] Work Phone: Serum or plasma creatinine m easurement (mass/volume)on 12-01-2021 Creatinine [Mass/Vol] 0.75 mg/dL 0.70-1.30 [facility] Work Phone: Comment on above: The validity of the calculated GFR & GFRAA in patients over 70 years has not been determined. Clinical correlation is essential. Serum or plasma urea nitroge n measurement (mass/volume)on 12-01-2021 Urea nitrogen [Mass/Vol] 18 mg/dL 7-18 [facility] Work Phone: Squamous epithelial cells de tection in urine sediment by light microscopyon 12-01-2021 Epithelial cells.squamous LM Ql (Urine sed) 0-5 SEEN /hpf 0-5 [facility] Work Phone: Thin prep Papanicolaou smear with manual screeningon 12-01-2021 Thin prep Papanicolaou smear with manual screening 7 5-15 [facility] Work Phone: Urine blood detectionon 11-05 RBC Ql (U) Negative Negative [facility] Work Phone: RBC Ql (U) 0 SEEN /hpf 0-5 [facility] Work Phone: Urine clarityon 12-01-2021 Clarity (U) Clear Clear [facility] Work Phone: Urine color determinationon 12-01-2021 Color (U) Yellow Yellow [facility] Work Phone: Urine glucose detectionon Glucose Ql (U) 50 mg/dl Normal [facility] Work Phone: Urine leukocyte esterase det ection by dipstickon 12-01-2021 Leukocyte esterase Test strip Ql (U) Negative Negative [facility] Work Phone: Urine pHon 12-01-2021 pH (U) 6.0 [pH] 5.0 - 8.0 [facility] Work Phone: Urine sediment bacteria coun t by microscopy (number/high power field)on 12-01-2021 Bacteria LM.HPF (Urine sed) [#/Area] 0 /[HPF] None Seen [facility] Work Phone: Urine sediment yeast count b y microscopy (number/high powered field)on 12-01-2021 Yeast LM.HPF (Urine sed) [#/Area] 2 /[HPF] None Seen [facility] Work Phone: Urine specific gravity measu rementon 12-01-2021 Specific gravity (U) [Rel density] 1.010 1.002-1.030 [facility] Work Phone: Urobilinogen Auto test strip Ql (U)on 12-01-2021 Urobilinogen Ql (U) Normal mg/dl Normal [facility] Work Phone: Whole blood prothrombin time on 12-01-2021 PT Coag (Bld) [Time] 19.8 s 11.7-14.9 [facility] Work Phone: Laboratory - Coagulationon 0 11-28-2021 INR Coag (Bld) [Relative time] 1.6 {INR} [facility] Work Phone: Comment on above: Critical Value > 4.0 Whole blood prothrombin time on 11-28-2021 PT Coag (Bld) [Time] 18.8 s 11.7-14.9 [facility] Work Phone: INR in Blood by Coagulation assayon 11-23-2021 INR Coag (Bld) [Relative time] 2.7 {INR} [facility] Work Phone: Laboratory - Coagulationon 0 11-23-2021 PT Coag (PPP) [Time] 28.0 s 11.7-14.9 [facility] Work Phone: Laboratory - Coagulationon 0 11-22-2021 INR Coag (Bld) [Relative time] 3.8 {INR} [facility] Work Phone: Comment on above: Critical Value > 4.0 Whole blood prothrombin time on 11-22-2021 PT Coag (Bld) [Time] 42.8 s 11.7-14.9 [facility] Work Phone: INR in Blood by Coagulation assayon 11-21-2021 INR Coag (Bld) [Relative time] 3.9 {INR} [facility] Work Phone: Laboratory - Coagulationon 0 11-21-2021 PT Coag (PPP) [Time] 37.7 s 11.7-14.9 [facility] Work Phone: Whole blood prothrombin time on 11-21-2021 PT Coag (Bld) [Time] 45.5 s 11.7-14.9 [facility] Work Phone: INR in Blood by Coagulation assayon 11-14-2021 INR Coag (Bld) [Relative time] 3.1 {INR} [facility] Work Phone: Laboratory - Coagulationon 0 11-14-2021 PT Coag (PPP) [Time] 31.4 s 11.7-14.9 [facility] Work Phone: Laboratory - Coagulationon 0 11-08-2021 INR Coag (Bld) [Relative time] 2.5 {INR} [facility] Work Phone: Comment on above: Critical Value > 4.0 Whole blood prothrombin time on 11-08-2021 PT Coag (Bld) [Time] 29.0 s 11.7-14.9 [facility] Work Phone: Basophil percentageon 2021 Chloride [Moles/Vol] 106 mmol/L 98-107 [facility] Work Phone: Glucose [Mass/Vol] 100 mg/dL 74-106 [facility] Work Phone: Comment on above: Fasting Glucose resu lt from 100 to 125 mg/dL suggests IMPAIRED HOMEOSTASIS per A.D.A. criteria. Potassium [Moles/Vol] 3.7 mmol/L 3.5-5.1 [facility] Work Phone: Sodium [Moles/Vol] 140 mmol/L 136-145 [facility] Work Phone: WBC (Bld) [#/Vol] 8.8 10*3/uL 4.4-11.0 [facility] Work Phone: Blood erythrocytes count (nu mber/volume)on 11-04-2021 RBC (Bld) [#/Vol] 4.05 10*6/uL 4.6-6.2 [facility] Work Phone: Blood hemoglobin measurement (mass/volume)on 11-04-2021 Hemoglobin (Bld) [Mass/Vol] 11.1 g/dL 13.0-16.5 [facility] Work Phone: Blood platelet mean volumeon 11-04-2021 Platelet mean volume (Bld) [Entitic vol] 10.8 fL 6.2-12.0 [facility] Work Phone: Determination of erythrocyte mean corpuscular volume (MCV)on 11-04-2021 MCV (RBC) [Entitic vol] 86.9 fL 80-94 [facility] Work Phone: Hematocrit Auto (Bld) [Volum e fraction]on 11-04-2021 Hematocrit (Bld) [Volume fraction] 35.2 % 40-54 [facility] Work Phone: INR in Blood by Coagulation assayon 11-04-2021 INR Coag (Bld) [Relative time] 1.8 {INR} [facility] Work Phone: Laboratory - Chemistry and C hemistry - challengeon 11-04-2021 CO2 [Moles/Vol] 26.0 mmol/L 21.0-32.0 [facility] Work Phone: Urea nitrogen/Creatinine [Mass ratio] 18.3 mg/mg 10-20 [facility] Work Phone: Laboratory - Coagulationon 0 11-04-2021 PT Coag (PPP) [Time] 20.4 s 11.7-14.9 [facility] Work Phone: Laboratory - Hematology and Cell countson 11-04-2021 Erythrocyte distribution width (RBC) [Entitic vol] 48.1 fL 35.1-43.9 [facility] Work Phone: Erythrocyte distribution width (RBC) [Ratio] 15.0 % 11.6-14.6 [facility] Work Phone: MCH (RBC) [Entitic mass] 27.4 pg 27.0-32.0 [facility] Work Phone: MCHC Auto (RBC) [Mass/Vol]on 11-04-2021 MCHC (RBC) [Mass/Vol] 31.5 g/dL 32-36 [facility] Work Phone: No Panel Informationon 11-04 D-Dimer Quantitative (PE/DVT) 0.56 FEU/ug/m 0.27-0.49 [facility] Work Phone: Comment on above: D-Dimer ELEVATED (>0 .49): Additional studies and clinicalassessments are indicated to conclude diagnosis of:Deep Vein Thrombosis (DVT) or Pulmonary Embolism (PE) Estimated GFR (MDRD) Amer 155 mL/min >60 [facility] Work Phone: Comment on above: GFR Calc Estimated GFR (MDRD) Non-Af Amer 128 mL/min >60 [facility] Work Phone: Comment on above: Non- GFR Calc Troponin I High Sensitivity 11 pg/mL 3.0-78.0 [facility] Work Phone: Comment on above: Please Note: New F[place]um[place] t Units and Gender Specific Reference Ranges. For more information see Policy Stat Procedure [place] High Sensitivity Troponin (TNIH) and attachments. Platelets bldon 11-04-2021 Platelets (Bld) [#/Vol] 364 10*3/uL 150-450 [facility] Work Phone: Serum or plasma C reactive p rotein measurement (mass/volume)on 11-04-2021 CRP [Mass/Vol] 31.90 mg/L 0.0-3.0 [facility] Work Phone: Comment on above: C-Reactive Protein ( CRP) provides useful information for thediagnosis, therapy and monitoring of inflammatory processesand associated diseases. For the evaluation of Relative Riskfor Cardiovascular Disease, a High Sensitivity CRP (HSCRP)should be ordered. Serum or plasma calcium oral urement (mass/volume)on 11-04-2021 Calcium [Mass/Vol] 9.1 mg/dL 8.5-10.1 [facility] Work Phone: Serum or plasma creatinine m easurement (mass/volume)on 11-04-2021 Creatinine [Mass/Vol] 0.66 mg/dL 0.70-1.30 [facility] Work Phone: Comment on above: The validity of the calculated GFR & GFRAA in patients over 70 years has not been determined. Clinical correlation is essential. Serum or plasma urea nitroge n measurement (mass/volume)on 11-04-2021 Urea nitrogen [Mass/Vol] 12 mg/dL 7-18 [facility] Work Phone: Thin prep Papanicolaou smear with manual screeningon 11-04-2021 Thin prep Papanicolaou smear with manual screening 8 5-15 [facility] Work Phone: Complete Urinalysison 2021 Appearance (U) Clear Normal Clear [facility] Comment on above: Result Comment: . Performed By: #### C UA2 ####[id number] [place], [place] Bacteria Moderate Abnormal Negative [facility] Comment on above: Result Comment: . Performed By: #### C UA2 ####[facility] [employer] [id number], [place] Bilirubin,Urine Negative Normal Negative [facility] [employer] Comment on above: Result Comment: . Performed By: #### C UA2 ####[id number] [place], [place] Cast, Hyaline Negative Normal Negative [facility] Comment on above: Result Comment: . Performed By: #### C UA2 ####[address] [place], [place] Color (U) Yellow Normal Lt. Yellow [facility] Comment on above: Result Comment: . Performed By: #### C UA2 ####[employer] [address] [place], [place] Glucose Ql (U) Normal Normal Normal (<70) [facility] Comment on above: Result Comment: . Performed By: #### C UA2 ####[address] [place], [place] Ketone,Urine Negative Normal Negative [facility] Comment on above: Result Comment: . Performed By: #### C UA2 ####[facility] [address] [place], [place] Leukocytes,Urine Negative Normal Negative [facility] Comment on above: Result Comment: . Performed By: #### C UA2 ####[place] [address] [place], [place] Mucous Threads Few Normal Negative [facility] Comment on above: Result Comment: . Performed By: #### C UA2 ####[place] [address] [place], [place] Nitrites,Urine Negative Normal Negative [facility] Comment on above: Result Comment: . Performed By: #### C UA2 ####[place] [address] [address] [place], [place] Occult Blood,Urine 0.1 mg/dL Abnormal Negative [facility] Comment on above: Result Comment: . Performed By: #### C UA2 ####[address] [place], [place] pH,Urine 5.5 Normal 5.0-8.0 [facility] Comment on above: Result Comment: . Performed By: #### C UA2 ####[address] [place], [place] Protein (U) [Mass/Vol] 10 mg/dL Abnormal Negative [facility] Comment on above: Result Comment: . Performed By: #### C UA2 ####[address] [place], [place] RBC, Urine 26 - 50 Abnormal 0-2 [facility] Comment on above: Result Comment: . Performed By: #### C UA2 ####[address] [place], [place] Specific [place],Urine 1.023 Normal 1.005 - 1.030 [facility] Comment on above: Result Comment: . Performed By: #### C UA2 ####[address] [place] Squamous Epithelial Negative Normal 3-5 [facility] Comment on above: Result Comment: . Performed By: #### C UA2 ####[address] [place] Urobilinogen,Urine Normal Normal Normal (0-1) [facility] Comment on above: Result Comment: . Performed By: #### C UA2 ####[facility] [place] [address] WBC, Urine 0 - 2 Normal 0-5 [facility] Comment on above: Result Comment: . Performed By: #### C UA2 ####[facility] [place] [address] Urinalysison 11-01-2021 Appearance (U) Clear Clear NA [...] Protein (U) [Mass/Vol] 10 mg/dL Abnormal Negative [facility] Comment on above: . RBC, UA 26-50 Abnormal 0 - 2 /[HPF] [facility] Comment on above: . Specific [place], Urine 1.023 [facility] Comment on above: . Squam Epithel, UA Negative 3 - 5 /[HPF] [facility] Comment on above: . Urobilinogen, Urine Normal Normal ( 0-1) mg/dL [facility] Comment on above: . WBC, UA 0-2 0 - 5 /[HPF] [facility] Comment on above: . Test Performed by [facility], [address] [place] [address] [facility] Basic Metabolic Panelon 10-06 Anion gap [Moles/Vol] 6 mmol/L Normal 3-13 [facility] Comment on above: Performed By: #### P T/AP, TROPN, BMP3, HEMDF #### [facility] [address] [place], [place] Calcium [Mass/Vol] 9.1 mg/dL Normal 8.4-10.4 [facility] Comment on above: Performed By: #### P T/AP, TROPN, BMP3, HEMDF #### [facility] [address] [place], [place] CO2 [Moles/Vol] 28 mmol/L Normal 22-30 [facility] Comment on above: Performed By: #### P T/AP, TROPN, BMP3, HEMDF #### [place] [address] [place], [place] Glucose [Mass/Vol] 120 mg/dL High 70-100 [facility] Comment on above: Performed By: #### P T/AP, TROPN, BMP3, HEMDF #### [place] [address] [place], [place] Urea nitrogen [Mass/Vol] 17 mg/dL Normal 7-17 [facility] Comment on above: Performed By: #### P T/AP, TROPN, BMP3, HEMDF #### [place] [address] [place], [place] Creatinine [Mass/Vol] 0.65 mg/dL Normal 0.52-1.25 [facility] Comment on above: Performed By: #### P T/AP, TROPN, BMP3, HEMDF #### [place] [address] [place], [place] eGFR OTHER > 90.0 Normal >60 [facility] Comment on above: Result Comment: KDIG [...] #### P T/AP, TROPN, BMP3, HEMDF #### [address] GFR/1.73 sq M.predicted among blacks MDRD (S/P/Bld) [Vol rate/Area] mL/min/{1.73_m2} Normal >60 [facility] Comment on above: Performed By: #### P T/AP, TROPN, BMP3, HEMDF #### [address] Potassium [Moles/Vol] 3.8 mmol/L Normal 3.5-5.1 [facility] Comment on above: Performed By: #### P T/AP, TROPN, BMP3, HEMDF #### [address] Chloride [Moles/Vol] 101 mmol/L Normal 98-107 [facility] Comment on above: Performed By: #### P T/AP, TROPN, BMP3, HEMDF #### [address] Sodium [Moles/Vol] 134 mmol/L Low 135-145 [facility] Comment on above: Performed By: #### P T/AP, TROPN, BMP3, HEMDF #### [address] Anion gap [Moles/Vol] 6 mmol/L 3 - 13 mmol/L [facility] Calcium [Mass/Vol] 9.1 mg/dL 8.4 - 10. 4 mg/dL [facility] Chloride [Moles/Vol] 101 mmol/L 98 - 10 7 mmol/L [facility] CO2 [Moles/Vol] 28 mmol/L 22 - 30 mmol/L [facility] Creatinine [Mass/Vol] 0.65 mg/dL 0.52 - 1.25 mg/dL [facility] EGFR IF NonAfrican Greenlandic >90.0 >60 mL/min [facility] Comment on above: [...] - 17 mg/dL [facility] Test Performed by [id number] [place] [address] LAB [facility] CBC with Auto Differentialon 10-31-2021 [...] - 10.7 10*3/uL [facility] Test Performed by 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 CHEST PORTABLE [...] Transcribed Date and Time: 10/31/2021 8:49 Normal [facility] CR Chest Portableon 11-01-19 22 CR Chest Portable Patient [id number] Diagnostic Radiology ACCESSION EXAM DATE/TIME PROCEDURE ORDERING PROVIDER [id number] 10/31/2021 20:36 EDT CR Chest Portable [id number] MYRON GALINDO CPT code 78014 Reason For Exam (CR Chest Portable) AMS [...] Transcribed Date and Time: 10/31/2021 8:[address] [facility] [address] HEAD WO CONTRASTon 2021 Patient Name[id number] Computed Tomography ACCESSION EXAM DATE/TIME PROCEDURE ORDERING PROVIDER [id number] 10/31/2021 20:[address] Head or Brain w/o [id number] -MYRON DURAN Contrast CPT code 33066 Reason For Exam (CT Head or Brain w/o Contrast) AMS, previous BEVELER shunt Report Examination: CT Head Clinical Information: AMS, previous BEVELER shunt Comparison: 10/26/2021, MRI 10/27/2021 Findings: Serial [...] J Transcribed Date and Time: 10/31/2021 8:54 [facility] RAD Carla Wong MD - 10/31/2021 Patient Name[id number] Computed Tomography ACCESSION EXAM DATE/TIME PROCEDURE ORDERING PROVIDER [id number] 10/31/2021 20:[address] Head or Brain w/o [id number] -MYRON DURAN Contrast CPT code 04411 Reason For Exam (CT Head or Brain w/o Contrast) AMS, previous BEVELER shunt Report Examination: CT Head Clinical Information: AMS, previous BEVELER shunt Comparison: 10/26/2021, MRI 10/27/2021 Findings: Serial [...] Brain w/o Contrast Patient Name: [id number] Computed Tomography ACCESSION EXAM DATE/TIME PROCEDURE ORDERING PROVIDER [id number] 10/31/2021 20:[address] Head or Brain w/o 044114 -MYRON DURAN Contrast CPT code 13697 Reason For Exam (CT Head or Brain w/o Contrast) AMS, previous BEVELER shunt Report Examination: CT Head Clinical Information: AMS, previous BEVELER shunt Comparison: 10/26/2021, MRI 10/27/2021 Findings: Serial [...] Transcribed Date and Time: 10/31/2021 8:54 Normal [facility] ED Provider Noteon ED Provider Note Emergency Department Encounter [facility] EMERGENCY DEPT Patient: Andrew Sifuentes [...] [employer] Dante Kim MD 10/31/21 3971 Normal [facility] ED Provider Note [facility] EMERGENCY DEPT EMERGENCY DEPARTMENT ENCOUNTER Pt Name: Andrew Sifuentes Birthdate 1950 Date of evaluation: 10/31/2021 Provider: Myron Duran MD CHIEF COMPLAINT Chief Complaint Patient presents with ? Altered Mental Status Pt presents to ED via [facility] for complaint listed. Pt is from [place] [facility]. Pt's LKW was 1000 hours today. [...] have a history of hydrocephalus with a BEVELER shunt. 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 REVIEW OF [...] (HCC) ? Kidney stone ? Neuropathy ? BEVELER (ventriculoperitoneal) shunt status SURGICAL HISTORY Past Surgical [...] of Transportati (more content not included)... 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1950 Requested By: MYRON DURAN Order Number: [id number] Reading MD: Dante Kim Measurements Intervals Poston Rate: 91 P: 41 [place]: 154 QRS: 50 QRSD: 147 T: 8 QT: 385 QTc: 474 Interpretive Statements Sinus rhythm Right bundle branch block Electronically Signed On 10-31-2021 20:36:25 EDT by Dante Kim [facility] Dante Kim M D - 10/31/2021 [facility] Test Date: 2021-10-31 Pat Name: ANDREW SIFUENTES Department: ER Room: 40 Gender: M 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1950 Requested By: MYRON DURAN Order Number: [id number] Reading MD: Dante Kim Measurements Intervals [place] Rate: 91 P: 41 [place]: 154 QRS: 50 QRSD: 147 T: 8 QT: 385 QTc: 474 Interpretive Statements Sinus rhythm Right bundle branch block Electronically Signed On 10-31-2021 20:36:25 EDT by Dante Kim [facility] Work Phone: EKG 12 Lead - Chest PainOrde red By: Dante Kim on 10-31-2021 [facility] Work Phone: Hemogram w/ Autodiffon 10-31 Abs Baso Cnt 0.1 10*3/uL Normal 0.0-0.2 [facility] Comment on above: Performed By: #### P T/AP, TROPN, BMP3, HEMDF #### [facility] [employer] [facility] [address] [place] [address] Abs Neutrophile Cnt 6.0 10*3/uL Normal 1.8-7.0 [facility] Comment on above: Performed By: #### P T/AP, TROPN, BMP3, HEMDF #### [place] [address] [place], [place] Basophils/100 WBC (Bld) 1.1 % Normal 0.0-2.0 [facility] Comment on above: Performed By: #### P T/AP, TROPN, BMP3, HEMDF #### [place] [address] [address] [place], [place] Eosinophils (Bld) [#/Vol] 0.2 10*3/uL Normal 0.0-0.5 [facility] Comment on above: Performed By: #### P T/AP, TROPN, BMP3, HEMDF #### [place] [address] [address] [place], [place] Eosinophils/100 WBC (Bld) 2.3 % Normal 1.0-6.0 [facility] Comment on above: Performed By: #### P T/AP, TROPN, BMP3, HEMDF #### [address] Erythrocyte distribution width (RBC) [Ratio] 17.2 % High 11.5-14.5 [facility] Comment on above: Performed By: #### P T/AP, TROPN, BMP3, HEMDF #### [address] Granulocytes/100 WBC (Bld) 61.8 % Normal 40.0-80.0 [facility] Comment on above: Performed By: #### P T/AP, TROPN, BMP3, HEMDF #### [place] [address] [place], [place] Hematocrit (Bld) [Volume fraction] 35.0 % Low 40.0-52.0 [facility] Comment on above: Performed By: #### P T/AP, TROPN, BMP3, HEMDF #### [place] [address] [address] [place], [place] Hemoglobin (Bld) [Mass/Vol] 11.3 g/dL Low 13.0-18.0 [facility] Comment on above: Performed By: #### P T/AP, TROPN, BMP3, HEMDF #### [place] [place], [place] Lymphocytes (Bld) [#/Vol] 2.8 10*3/uL Normal 1.0-4.3 [facility] Comment on above: Performed By: #### P T/AP, TROPN, BMP3, HEMDF #### [place] [address] [place], [place] Lymphocytes/100 WBC (Bld) 29.2 % Normal 20.0-40.0 [facility] Comment on above: Performed By: #### P T/AP, TROPN, BMP3, HEMDF #### [address] MCH (RBC) [Entitic mass] 27.5 pg Normal 26.0-34.0 [facility] Comment on above: Performed By: #### P T/AP, TROPN, BMP3, HEMDF #### [address] [place], [place] MCHC 32.3 % Normal 32.0-36.0 [facility] Comment on above: Performed By: #### P T/AP, TROPN, BMP3, HEMDF #### [address] MCV (RBC) [Entitic vol] 85.0 fL Normal 80.0-98.0 [facility] Comment on above: Performed By: #### P T/AP, TROPN, BMP3, HEMDF #### [place] [place], [place] Monocytes (Bld) [#/Vol] 0.5 10*3/uL Normal 0.0-0.8 [facility] Comment on above: Performed By: #### P T/AP, TROPN, BMP3, HEMDF #### [place] [address] [place], [place] Monocytes/100 WBC (Bld) 5.6 % Normal 2.0-10.0 [facility] Comment on above: Performed By: #### P T/AP, TROPN, BMP3, HEMDF #### [facility] [address] [place], [place] Platelet mean volume (Bld) [Entitic vol] 8.6 fL Normal 7.4-12.4 [facility] Comment on above: Result Comment: MPV is a calculated measurement using platelet volume ratio. Performed By: #### P T/AP, TROPN, BMP3, HEMDF #### [facility] [address] [place], [place] Platelets (Bld) [#/Vol] 348 10*3/uL Normal 140-440 [facility] Comment on above: Performed By: #### P T/AP, TROPN, BMP3, HEMDF #### [place] [address] [place], [place] RBC (Bld) [#/Vol] 4.12 10*6/uL Low 4.40-5.90 [facility] Comment on above: Performed By: #### P T/AP, TROPN, BMP3, HEMDF #### [facility] [address] [place], [place] WBC (Bld) [#/Vol] 9.7 10*3/uL Normal 3.6-10.7 [facility] Comment on above: Performed By: #### P T/AP, TROPN, BMP3, HEMDF #### [facility] [address] [place], [place] Laboratory - Coagulationon 0 10-31-2021 INR Coag (Bld) [Relative time] 2.0 {INR} [facility] Work Phone: Comment on above: Critical Value > 4.0 No Panel Informationon 10-31 Radiology Study observation (narrative) [facility] Work Phone: PROTIME/INR & PTTon 11-01-19 aPTT Coag (Bld) [Time] 39.2 s High 20.0 - 30.5 s [facility] Comment on above: NOTE: The therapeuti c time for Heparin anticoagulation, based on Xa activity inhibition, is an APTT of 46-80 seconds. INR Coag (Bld) [Relative time] 1.9 {INR} High [facility] Comment on above: Recommended Anticoag ulant [...] of laboratory results Abnormal [facility] PT Coag (PPP) [Time] 19.8 s High 9.0 - 12.0 s [facility] Comment on above: . Test Performed by [facility], [address] [place] [address] [facility] Protime AND APTTon 2 aPTT Coag (Bld) [Time] 39.2 s High 20.0-30.5 [facility] Comment on above: Result Comment: NOTE : The therapeutic time for Heparin anticoagulation, based on Xa activity inhibition, is an APTT of 46-80 seconds. Performed By: #### P T/AP, TROPN, BMP3, HEMDF #### [address] [address] INR 1.9 High 0.9-1.1 [facility] Comment on above: Result Comment: [...] #### P T/AP, TROPN, BMP3, HEMDF #### [address] [address] PT Coag (PPP) [Time] 19.8 s High 9.0-12.0 [facility] Comment on above: Result Comment: . Performed By: #### P T/AP, TROPN, BMP3, HEMDF #### [address] [address] Troponin Ion 10-31-2021 Troponin I.cardiac [Mass/Vol] ng/mL Normal 0.000-0.034 [facility] Comment on above: Result Comment: . Performed By: #### P T/AP, TROPN, BMP3, HEMDF #### [facility] [address] [place] [address] Troponin x1on 10-31-2021 Troponin I.cardiac [Mass/Vol] ng/mL 0.000 - 0.034 ng/mL [facility] Comment on above: . Test Performed by 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 CHEST PORTABLE [...] Radiology ACCESSION EXAM DATE/TIME PROCEDURE ORDERING PROVIDER [id number] 10/31/2021 20:36 EDT CR Abdomen AP [id number] -MYRON DURAN CPT code 86641 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, 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 [...] and Time: 10/31/2021 8:49 [facility] Work Phone: [facility] Work Phone: XR CHEST PORTABLEon 11-01-19 Patient Name: ANDREW SIFUENTES Diagnostic Radiology ACCESSION EXAM DATE/TIME PROCEDURE ORDERING PROVIDER [id number] 10/31/2021 20:36 EDT CR Chest Portable [id number] -MYRON DURAN CPT code 31488 Reason For Exam (CR Chest Portable) AMS [...] Transcribed Date and Time: 10/31/2021 8:49 [facility] Huang Munoz MD - 10/31/2021 Patient Name: ANDREW SIFUENTES Diagnostic Radiology ACCESSION EXAM DATE/TIME PROCEDURE ORDERING PROVIDER [id number] 10/31/2021 20:36 EDT CR Chest Portable [id number] MYRON GALINDO CPT code 46743 Reason For Exam (CR Chest Portable) AMS [...] Transcribed Date and Time: 10/31/2021 8:49 [facility] Work Phone: XR CHEST PORTABLEOrdered By: Huang Reynoso on 10-31-2021 [facility] Work Phone: Lupus Anticoagulanton 2021 DRVVT Confirmation Test Not Applicable Negative ratio [facility] Work Phone: dRVVT Screen 38 [facility] Work Phone: Hex Phosph Neut Test Not Applicable Negative NA [facility] Work Phone: Interpretation and review of laboratory results Abnormal [facility] Work Phone: LUPUS INTERPRETATION See Note [facility] Work Phone: Comment on above: Lupus anticoagulant [...] has not already been performed. Performed by [employer], [address], [facility] [place] [address] [email or web address], Quiana Castro MD - Lab. Director Platelet Neutralization Not Applicable Negative NA [facility] Work Phone: PTT-D Heparin Neutralized 48 [facility] Work Phone: PTT-LA 55 High [facility] Work Phone: Reptilase Tm 17.6 <=21.9 sec [facility] Work Phone: Thrombin Time 25.[address] [facility] Work Phone: [facility] Work Phone: Lupus Anticoagulant Reflexiv e Panelon 10-29-2021 aPTT Coag (Bld) [Time] 55 s High 32-48 [facility] Comment on above: Performed By: #### C OVAG #### [facility] [address] [place] [address] aPTT Coag (Bld) [Time] 48 s Normal 32-48 [facility] Comment on above: Performed By: #### C OVAG #### [facility] [address] [place] [address] DRVVT 1:1 Mix Not Applicable Normal 33-44 [facility] Work Phone: Comment on above: Performed By: #### C OVAG #### [facility] [address] [place] [address] dRVVT Confirmation Not Applicable Normal Negative [facility] Comment on above: Performed By: #### C OVAG #### [facility] [address] [place] [address] dRVVT Screen 38 sec Normal 33-44 [facility] Comment on above: Performed By: #### C OVAG #### [facility] [address] [place] [address] Hexagonal Phospholipid Neutral Reflex Not Applicable Normal Negative [facility] Comment on above: Performed By: #### C OVAG #### [facility] [address] [place] [address] Lupus Anticoagulant Interpretation See Note Normal [facility] Comment on above: Result Comment: Lupu [...] has not already been performed. Performed by [employer], [address] [place] [id number] [email or web address], Quiana Castro MD - Lab. Director Performed By: #### C OVAG #### [facility] [address] [place] [address] Platelet Neutralization (PTT-D, Confirm) Not Applicable Normal Negative [facility] Comment on above: Performed By: #### C OVAG #### [facility] [address] [place] [address] PT Coag (PPP) [Time] 14.7 s Normal 12.0-15.5 [facility] Work Phone: Comment on above: Performed By: #### C OVAG #### [facility] [address] [place] [address] PTT-D 1:1 Mix Not Applicable Normal 32-48 [facility] Work Phone: Comment on above: Performed By: #### C OVAG #### [facility] [address] [place] [address] Reptilase Time 17.6 sec Normal <=21.9 [facility] Comment on above: Performed By: #### C OVAG #### [facility] [address] [place] [address] Thrombin Time 25.3 sec High 14.7-19.5 [facility] Comment on above: Performed By: #### C OVAG #### [facility] [address] [place] [address] POCT COVID-19, Antigenon SARS-CoV-2 Nucleocapsid Antigen Negative Negative NA [facility] Comment on above: A negative result does not rule out the possibility of SARS-CoV-2 infection. NAAT-based methods should be considered for symptomatic patients presenting greater than seven days after onset of symptoms. Method: Lateral flow immunoassay. Fact sheets for healthcare providers and patients can be found at the following sites: https://www.fda.gov/media/403480/download https://www.fda.gov/media/183136/download Test Performed by [facility], [address] [facility] [id number] [place] [address] LAB [facility] Prothrombin Timeon INR 2.7 High 0.9-1.1 [facility] Comment on above: Result Comment: [...] Infarction Performed By: #### P T #### [facility] [address] [place] [address] PT Coag (PPP) [Time] 27.4 s High 9.0-12.0 [facility] Comment on above: Result Comment: . Performed By: #### P T #### [facility] [address] [place] [address] Protime-INRon 10-29-2021 INR Coag (Bld) [Relative time] 2.7 {INR} High [facility] Work Phone: Comment on above: Recommended [...] of laboratory results Abnormal [facility] Work Phone: PT Coag (PPP) [Time] 27.4 s High 9.0 - 12.0 s [facility] Work Phone: [phone] Comment on above: . Test Performed by [facility] [employer] [facility], [address], [place], [place] [address] [facility] LAB [facility] Work Phone: [phone] SARS-CoV-2 Antigenon 022 SARS-CoV-2 Antigen Negative Normal Negative [facility] Comment on above: Result Comment: A negative result does not rule out the possibility of SARS-CoV-2 infection. NAAT-based methods should be considered for symptomatic patients presenting greater than seven days after onset of symptoms. Method: Lateral flow immunoassay. Fact sheets for healthcare providers and patients can be found at the following sites: https://www.[employer].gov/media/374782/download https://www.[employer].gov/media/803031/download Performed By: #### C OVAG #### [facility] [employer] [facility] [address] [place] [address] CBCon 10-28-2021 Hematocrit (Bld) [Volume fraction] 33.4 % Low 40.0 - 52.0 % [facility] Work Phone: Hemoglobin (Bld) [Mass/Vol] 11.0 g/dL Low 13.0 - 18.0 g/dL [facility] Work Phone: Interpretation and review of laboratory results Abnormal [facility] Work Phone: MCH (RBC) [Entitic mass] 27.8 pg 26.0 - 34.0 pg [facility] Work Phone: MCHC (RBC) [Mass/Vol] 32.8 % 32.0 - 36.0 % [facility] Work Phone: MCV (RBC) [Entitic vol] 84.8 fL 80.0 - 98.0 fL [facility] Work Phone: Platelet distribution width (Bld) [Ratio] 17.1 % High 11.5 - 14.5 % [employer] Work Phone: Platelet mean volume (Bld) [Entitic vol] 8.3 fL 7.4 - 12.4 fL [employer] Work Phone: Comment on above: MPV is a calculated measurement using platelet volume ratio. Platelets (Bld) [#/Vol] 344 10*3/uL 140 - 440 10*3/uL [employer] Work Phone: [phone] RBC (Bld) [#/Vol] 3.94 10*6/uL Low 4.40 - 5.9 0 10*6/uL [employer] Work Phone: [phone] WBC (Bld) [#/Vol] 10.0 10*3/uL 3.6 - 10.7 10*3/uL [employer] Work Phone: Test Performed by [facility], [address] [place], [place] [address] [place] [address] LAB [facility] Work Phone: Comp Metabolic Panelon 10-28 ALP [Catalytic activity/Vol] 103 U/L Normal 38-126 [facility] Comment on above: Performed By: #### C A19O, LUPUS #### The performing lab is in the report. #### NSEO #### [facility] #### HEMDF, LDH3, BMP3, MG3, PT, CEA2 #### [facility] [address] [place] [address] #### B2GPM, B2GPA, B2GPG #### [facility] [address] [place] [address] ALT [Catalytic activity/Vol] 26 U/L Normal 0-49 [facility] Comment on above: Result Comment: The ALT test is performed by an updated assay method. Please note that the reference intervals have been changed and are now sex specific. Performed By: #### C A19O, LUPUS #### The performing lab is in the report. #### NSEO #### [facility] #### HEMDF, LDH3, BMP3, MG3, PT, CEA2 #### [facility] [address] [place] [address] #### B2GPM, B2GPA, B2GPG #### [address] AST [Catalytic activity/Vol] 24 U/L Normal 15-46 [facility] Comment on above: Performed By: #### C A19O, LUPUS #### The performing lab is in the report. #### NSEO #### [facility] #### HEMDF, LDH3, BMP3, MG3, PT, CEA2 #### [place] [address] [place] #### B2GPM, B2GPA, B2GPG #### [address] Calcium [Mass/Vol] 9.1 mg/dL Normal 8.4-10.4 [facility] Comment on above: Performed By: #### C A19O, LUPUS #### The performing lab is in the report. #### NSEO #### [facility] #### HEMDF, LDH3, BMP3, MG3, PT, CEA2 #### [address] [place] [address] #### B2GPM, B2GPA, B2GPG #### [address] Glucose [Mass/Vol] 117 mg/dL High 70-100 [facility] Comment on above: Performed By: #### C A19O, LUPUS #### The performing lab is in the report. #### NSEO #### [facility] #### HEMDF, LDH3, BMP3, MG3, PT, CEA2 #### [place] [address] [place] [address] #### B2GPM, B2GPA, B2GPG #### [address] Urea nitrogen [Mass/Vol] 16 mg/dL Normal 7-17 [facility] Comment on above: Performed By: #### C A19O, LUPUS #### The performing lab is in the report. #### NSEO #### [facility] #### HEMDF, LDH3, BMP3, MG3, PT, CEA2 #### [place] [address] [place] [address] #### B2GPM, B2GPA, B2GPG #### [address] Anion gap [Moles/Vol] 5 mmol/L Normal 3-13 [facility] Comment on above: Performed By: #### C A19O, LUPUS #### The performing lab is in the report. #### NSEO #### [facility] #### HEMDF, LDH3, BMP3, MG3, PT, CEA2 #### [place] [address] [place] [address] #### B2GPM, B2GPA, B2GPG #### [address] Bilirubin [Mass/Vol] 0.4 mg/dL Normal 0.2-1.3 [facility] Comment on above: Performed By: #### C A19O, LUPUS #### The performing lab is in the report. #### NSEO #### [facility] #### HEMDF, LDH3, BMP3, MG3, PT, CEA2 #### [place] [address] [place] [address] #### B2GPM, B2GPA, B2GPG #### [address] CO2 [Moles/Vol] 29 mmol/L Normal 22-30 [facility] Comment on above: Performed By: #### C A19O, LUPUS #### The performing lab is in the report. #### NSEO #### [facility] #### HEMDF, LDH3, BMP3, MG3, PT, CEA2 #### [place] [address] [place] [address] #### B2GPM, B2GPA, B2GPG #### [address] Creatinine [Mass/Vol] 0.71 mg/dL Normal 0.52-1.25 [facility] Comment on above: Performed By: #### C A19O, LUPUS #### The performing lab is in the report. #### NSEO #### [facility] #### HEMDF, LDH3, BMP3, MG3, PT, CEA2 #### [facility] [address] [place] #### B2GPM, B2GPA, B2GPG #### [address] eGFR OTHER > 90.0 Normal >60 [facility] Comment on above: Result Comment: KDIG [...] HEMDF, LDH3, BMP3, MG3, PT, CEA2 #### [facility] [address] [place] [address] #### B2GPM, B2GPA, B2GPG #### [address] GFR/1.73 sq M.predicted among blacks MDRD (S/P/Bld) [Vol rate/Area] mL/min/{1.73_m2} Normal >60 [facility] Comment on above: Performed By: #### C A19O, LUPUS #### The performing lab is in the report. #### NSEO #### [facility] #### HEMDF, LDH3, BMP3, MG3, PT, CEA2 #### [facility] [address] [place] [address] #### B2GPM, B2GPA, B2GPG #### [address] Protein [Mass/Vol] 7.1 g/dL Normal 6.3-8.2 [facility] Comment on above: Performed By: #### C A19O, LUPUS #### The performing lab is in the report. #### NSEO #### [facility] #### HEMDF, LDH3, BMP3, MG3, PT, CEA2 #### [facility] [address] [place] [address] #### B2GPM, B2GPA, B2GPG #### [address] Potassium [Moles/Vol] 3.5 mmol/L Normal 3.5-5.1 [facility] Comment on above: Performed By: #### C A19O, LUPUS #### The performing lab is in the report. #### NSEO #### [facility] #### HEMDF, LDH3, BMP3, MG3, PT, CEA2 #### [facility] [address] [place] [address] #### B2GPM, B2GPA, B2GPG #### [address] Sodium [Moles/Vol] 138 mmol/L Normal 135-145 [facility] Comment on above: Performed By: #### C A19O, LUPUS #### The performing lab is in the report. #### NSEO #### [facility] #### HEMDF, LDH3, BMP3, MG3, PT, CEA2 #### [facility] [address] [place] [address] #### B2GPM, B2GPA, B2GPG #### [address] Albumin [Mass/Vol] 3.7 g/dL Normal 3.5-5.0 [facility] Comment on above: Performed By: #### C A19O, LUPUS #### The performing lab is in the report. #### NSEO #### [facility] #### HEMDF, LDH3, BMP3, MG3, PT, CEA2 #### [facility] [address] [place] [address] #### B2GPM, B2GPA, B2GPG #### [address] Chloride [Moles/Vol] 104 mmol/L Normal 98-107 [facility] Comment on above: Performed By: #### C A19O, LUPUS #### The performing lab is in the report. #### NSEO #### [facility] #### HEMDF, LDH3, BMP3, MG3, PT, CEA2 #### [facility] [address] [place] [address] #### B2GPM, B2GPA, B2GPG #### [address] Comprehensive Metabolic Pane kiel 10-28-2021 Albumin [Mass/Vol] 3.7 g/dL 3.5 - 5.0 g/dL [facility] Work Phone: ALP (Bld) [Catalytic activity/Vol] 103 U/L 38 - 126 U/L [facility] Work Phone: ALT [Catalytic activity/Vol] 26 U/L 0 - 49 U/L [facility] Work Phone: Comment on above: The [...] - 10. 4 mg/dL [facility] Work Phone: [phone] Chloride [Moles/Vol] 104 mmol/L 98 - 10 7 mmol/L [facility] Work Phone: CO2 [Moles/Vol] 29 mmol/L 22 - 30 mmol/L [facility] Work Phone: Creatinine [Mass/Vol] 0.71 mg/dL 0.52 - 1.25 mg/dL [facility] Work Phone: EGFR IF NonAfrican Greenlandic >90.0 >60 mL/min [facility] Work Phone: Comment on above: KDIGO [...] 7.1 g/dL 6.3 - 8.2 g/dL [facility] Work Phone: GFR/1.73 sq M.predicted among blacks MDRD (S/P/Bld) [Vol rate/Area] mL/min/{1.73_m2} >60 mL/min [facility] Work Phone: Glucose [Mass/Vol] 117 mg/dL High 70 - 100 mg/dL [facility] Work Phone: Interpretation and review of laboratory results Abnormal [facility] Work Phone: Potassium [Moles/Vol] 3.5 mmol/L 3.5 - 5.1 mmol/L [facility] Work Phone: [phone] Sodium [Moles/Vol] 138 mmol/L 135 - 145 mmol/L [facility] Work Phone: Urea nitrogen (BldV) [Mass/Vol] 16 mg/dL 7 - 17 mg/dL [facility] Work Phone: Test Performed by [facility], [address] [place] [id number] [place] [address] LAB [facility] Work Phone: Hemogramon 10-28-2021 Erythrocyte distribution width (RBC) [Ratio] 17.1 % High 11.5-14.5 [facility] Comment on above: Performed By: #### C A19O, LUPUS #### The performing lab is in the report. #### NSEO #### [facility] #### HEMDF, LDH3, BMP3, MG3, PT, CEA2 #### [address] [address] #### B2GPM, B2GPA, B2GPG #### [address] [address] Hematocrit (Bld) [Volume fraction] 33.4 % Low 40.0-52.0 [facility] Comment on above: Performed By: #### C A19O, LUPUS #### The performing lab is in the report. #### NSEO #### [facility] #### HEMDF, LDH3, BMP3, MG3, PT, CEA2 #### [address] [address] #### B2GPM, B2GPA, B2GPG #### [address] Hemoglobin (Bld) [Mass/Vol] 11.0 g/dL Low 13.0-18.0 [facility] Comment on above: Performed By: #### C A19O, LUPUS #### The performing lab is in the report. #### NSEO #### [facility] #### HEMDF, LDH3, BMP3, MG3, PT, CEA2 #### [place] [address] [place] #### B2GPM, B2GPA, B2GPG #### [address] MCH (RBC) [Entitic mass] 27.8 pg Normal 26.0-34.0 [facility] Comment on above: Performed By: #### C A19O, LUPUS #### The performing lab is in the report. #### NSEO #### [facility] #### HEMDF, LDH3, BMP3, MG3, PT, CEA2 #### [address] [place] #### B2GPM, B2GPA, B2GPG #### [address] MCHC 32.8 % Normal 32.0-36.0 [facility] Comment on above: Performed By: #### C A19O, LUPUS #### The performing lab is in the report. #### NSEO #### [facility] #### HEMDF, LDH3, BMP3, MG3, PT, CEA2 #### [address] [place] #### B2GPM, B2GPA, B2GPG #### [address] MCV (RBC) [Entitic vol] 84.8 fL Normal 80.0-98.0 [facility] Comment on above: Performed By: #### C A19O, LUPUS #### The performing lab is in the report. #### NSEO #### [facility] #### HEMDF, LDH3, BMP3, MG3, PT, CEA2 #### [facility] [address] [place] [address] #### B2GPM, B2GPA, B2GPG #### [address] Platelet mean volume (Bld) [Entitic vol] 8.3 fL Normal 7.4-12.4 [facility] Comment on above: Result Comment: MPV is a calculated measurement using platelet volume ratio. Performed By: #### C A19O, LUPUS #### The performing lab is in the report. #### NSEO #### [facility] #### HEMDF, LDH3, BMP3, MG3, PT, CEA2 #### [address] [facility] [facility] [place] #### B2GPM, B2GPA, B2GPG #### [address] Platelets (Bld) [#/Vol] 344 10*3/uL Normal 140-440 [facility] Comment on above: Performed By: #### C A19O, LUPUS #### The performing lab is in the report. #### NSEO #### [facility] #### HEMDF, LDH3, BMP3, MG3, PT, CEA2 #### [address] [facility] [place] #### B2GPM, B2GPA, B2GPG #### [address] RBC (Bld) [#/Vol] 3.94 10*6/uL Low 4.40-5.90 [facility] Comment on above: Performed By: #### C A19O, LUPUS #### The performing lab is in the report. #### NSEO #### [facility] #### HEMDF, LDH3, BMP3, MG3, PT, CEA2 #### [address] [place] [address] #### B2GPM, B2GPA, B2GPG #### [facility] [address] [place] [address] WBC (Bld) [#/Vol] 10.0 10*3/uL Normal 3.6-10.7 [facility] Comment on above: Performed By: #### C A19O, LUPUS #### The performing lab is in the report. #### NSEO #### [facility] #### HEMDF, LDH3, BMP3, MG3, PT, CEA2 #### [facility] [address] [place] [address] #### B2GPM, B2GPA, B2GPG #### [facility] [address] [place], [place] Neuron Specific Enolaseon Neuron Specific Enolase 20.8 Normal [facility] Comment on above: Result Comment: Neur on Specific Enolase, Serum 20.8 ng/mL H (Ref Interval: <=12.7) NSE and Hgb are elevated in the specimen. The elevated NSE may be a result of hemolysis as NSE is expressed in red blood cells. Interpret results with caution. INTERPRETIVE INFORMATION: Neuron Specific Enolase in Serum This assay is performed using the [employer] NSE Kryptor Immunoassay. Results obtained with different assay methods or kits cannot be used interchangeably. Results cannot be interpreted as absolute evidence of the presence or absence of malignant disease. This test was developed and its performance characteristics determined by [employer]. It has not been cleared or approved by the [place] Food and Drug Administration. This test was performed in a CLIA certified laboratory and is intended for clinical purposes. Performed By: #### C OVAG #### [facility] [address] [place] [address] Neuron specific enolase (NSE )on 10-28-2021 Neuron Specific Enolase 20.8 [facility] Work Phone: Comment on above: Neuron Specific Enol ase, Serum 20.8 ng/mL H (Ref Interval: <=12.7) NSE and Hgb are elevated in the specimen. The elevated NSE may be a result of hemolysis as NSE is expressed in red blood cells. Interpret results with caution. INTERPRETIVE INFORMATION: Neuron Specific Enolase in Serum This assay is performed using the [employer] NSE Kryptor Immunoassay. Results obtained with different assay methods or kits cannot be used interchangeably. Results cannot be interpreted as absolute evidence of the presence or absence of malignant disease. This test was developed and its performance characteristics determined by [employer]. It has not been cleared or approved by the [place] Food and Drug Administration. This test was performed in a CLIA certified laboratory and is intended for clinical purposes. 1 [facility] Work Phone: Prothrombin Timeon 2 INR 3.1 High 0.9-1.1 [facility] Comment on above: Result Comment: [...] HEMDF, LDH3, BMP3, MG3, PT, CEA2 #### [facility] [address] [place] [address] #### B2GPM, B2GPA, B2GPG #### [address] [address] PT Coag (PPP) [Time] 30.8 s High 9.0-12.0 [facility] Comment on above: Result Comment: . Performed By: #### C A19O, LUPUS #### The performing lab is in the report. #### NSEO #### [facility] #### HEMDF, LDH3, BMP3, MG3, PT, CEA2 #### [facility] [address] [place] [address] #### B2GPM, B2GPA, B2GPG #### [address] [phone] Protime-INRon 10-28-2021 INR Coag (Bld) [Relative time] 3.1 {INR} High [facility] Work Phone: Comment on above: Recommended [...] of laboratory results Abnormal [facility] Work Phone: PT Coag (PPP) [Time] 30.8 s High 9.0 - 12.0 s [facility] Work Phone: Comment on above: . Test Performed by [facility], [address] [place], [place] [id number] [place] [address] LAB [facility] Work Phone: MRI BRAIN WO CONTRASTon 10-06 Patient Name: ANDREW SIFUENTES Magnetic Res[facility] Imaging ACCESSION EXAM DATE/TIME PROCEDURE ORDERING PROVIDER [id number] 10/27/2021 13:14 EDT MRI Brain w/o Contrast UNASSIGNED, UNASSIGNED CPT code 39838 Reason For Exam (MRI Brain w/o Contrast) stroke Patient has BEVELER shunt in place, please follow Radiology protocol [...] OSAMA Transcribed Date and Time: 10/27/2021 2:39 [facility] Venus Loyd MD - 10/27/2021 Patient Name: ANDREW SIFUENTES Magnetic Resonance Imaging ACCESSION EXAM DATE/TIME PROCEDURE ORDERING PROVIDER [id number] 10/27/2021 13:14 EDT MRI Brain w/o Contrast UNASSIGNED, UNASSIGNED CPT code 50531 Reason For Exam (MRI Brain w/o Contrast) stroke Patient has BEVELER shunt in place, please follow Radiology protocol [...] --- Final --- Dictating Physician: MD KHARI, VNEUS RAMOS Signed Date and Time: 10/27/2021 2:38 pm Signed by: MD KHARI, VENUS RAMOS Transcribed Date and Time: 10/27/2021 2:39 [facility] Work Phone: [facility] Work Phone: MRI Brain w/o Contraston MRI Brain w/o Contrast Patient Name: ANDREW VELAZQUEZ [facility]#: [id number] Magnetic Resonance Imaging ACCESSION EXAM DATE/TIME PROCEDURE ORDERING PROVIDER [id number] 10/27/2021 13:14 EDT MRI Brain w/o Contrast UNASSIGNED, UNASSIGNED CPT code 42960 Reason For Exam (MRI Brain w/o Contrast) stroke Patient has BEVELER shunt in place, please follow Radiology protocol [...] Transcribed Date and Time: 10/27/2021 2:39 Normal [facility] Prothrombin Timeon INR 2.1 High 0.9-1.1 [facility] Comment on above: Result Comment: [...] Infarction Performed By: #### P T #### [facility] [address] [place] [address] PT Coag (PPP) [Time] 21.9 s High 9.0-12.0 [facility] Work Phone: Comment on above: . Result Comment: . Performed By: #### P T #### [facility] [address] [place] [address] Protime-INRon 10-27-2021 INR Coag (Bld) [Relative time] 2.1 {INR} High [facility] Work Phone: Comment on above: Recommended [...] of laboratory results Abnormal [facility] Work Phone: Test Performed by [facility], [address] [place], [place], [place] [address] [facility] LAB [facility] Work Phone: CT HEAD WO CONTRASTon 2021 Patient Name: ANDREW SIFUENTES Computed Tomography ACCESSION EXAM DATE/TIME PROCEDURE ORDERING PROVIDER [id number] 10/26/2021 11:[address] Head or Brain w/o JUNIE PINEDA ALLISON Contrast CPT code 77595 Reason For Exam (CT Head or Brain w/o Contrast) hydrocephalus. thank you Report CLINICAL INFORMATION: Hydrocephalus. Shunt. 3 mm axial cuts through the head are obtained without IV contrast. The examination is compared to a previous study dated 06/29/2014. FINDINGS: Old BEVELER shunt tubing is noted bilaterally. The new [...] are clear. IMPRESSION: 1. Old and new BEVELER shunt tubing. 2. No hydrocephalus. 3. Atrophy and evidence of small-vessel ischemic disease. 4. No CT evidence of an acute intracranial process. Report Dictated on --- Final --- Dictating Physician: MD SOLANO JEFFREY Signed Date and Time: 10/26/2021 11:42 am Signed by: MD SOLANO JEFFREY Transcribed Date and Time: 10/26/2021 11:43 [facility] Albert Solano MD - 10/26/2021 [id number] Computed Tomography ACCESSION EXAM DATE/TIME PROCEDURE ORDERING PROVIDER [id number] 10/26/2021 11:[address] Head or Brain w/o JUNIE PINEDA ALLISON Contrast CPT code 16994 Reason For Exam (CT Head or Brain w/o Contrast) hydrocephalus. thank you Report CLINICAL INFORMATION: Hydrocephalus. Shunt. 3 mm axial cuts through the head are obtained without IV contrast. The examination is compared to a previous study dated 06/29/2014. FINDINGS: Old BEVELER shunt tubing is noted bilaterally. The new [...] are clear. IMPRESSION: 1. Old and new BEVELER shunt tubing. 2. No hydrocephalus. 3. Atrophy [...] Tomography ACCESSION EXAM DATE/TIME PROCEDURE ORDERING PROVIDER [id number] 10/26/2021 11:[address] Head or Brain w/o JUNIE PINEDA, SARINA Contrast CPT code 97027 Reason For Exam (CT Head or Brain w/o Contrast) hydrocephalus. thank you Report CLINICAL INFORMATION: Hydrocephalus. Shunt. 3 mm axial cuts through the head are obtained without IV contrast. The examination is compared to a previous study dated 06/29/2014. FINDINGS: Old BEVELER shunt tubing is noted bilaterally. The new [...] are clear. IMPRESSION: 1. Old and new BEVELER shunt tubing. 2. No hydrocephalus. 3. Atrophy and evidence of small-vessel ischemic disease. 4. No CT evidence of an acute intracranial process. Report Dictated on Final Dictating Physician: MD SOLANO JEFFREY Signed Date and Time: 10/26/2021 11:42 am Signed by: MD SOLANO JEFFREY Transcribed Date and Time: 10/26/2021 11:43 Normal [facility] EEG awake and asleepon 10-26 Bony Tompkins MD 10/26/2021 4:06 PM [facility] [address] [place] [address] ROUTINE EEG REPORT Patient Name: Andrew Sifuentes : 1950 Date of Study: 10/26/2021 Duration Recorded: 23 minutes EEG#: [id number] SUSTAINABILITY SPECIALIST: CASTRO PROVIDER REQUESTING STUDY: Dr. Barreto REASON FOR EXAM: seizures HISTORY: Andrew Sifuentes is a 71 y.o. male with history of obstructive hydrocephalus s/p BEVELER shunt in 1987, needing multiple revisions and [...] normal limits and both old and new BEVELER shunt tubing noted. At present patient is awake, follows commands, was able to tell his name, and that he was in hospital but not oriented to time. Per documentation patient had NCSE in May 2021, was on Vimpat, but it was discontinued as there was no evidence of recurrent seizures in July 2021 by Neurology at [facility], per daughter patient was on Dilantin for 31 yrs. Per daughter patient had seizures in the past and also felt he had staring episodes this morning. Per daughter patient has been essentially bed bound in [place] since May 2021 but prior to that [...] electrodes were positioned in person by an clinical lab technologist, following patient education, according to the 10-20 International system of electrode placement and maintained for integrity and quality of the recording. EEG data with video was recorded continuously and digitally stored. The clinical lab technologist reviewed all automated detections and manual [...] No normal vari (more content not included)... [facility] Work Phone: [facility] Work Phone: No Panel Informationon 10-26 Radiology Study observation (narrative) [facility] Work Phone: Prothrombin Timeon 2 INR 1.9 High 0.9-1.1 [facility] Comment on above: Result Comment: Harry mmended [...] Infarction Performed By: #### C OVAG #### [employer] [facility] [address] [place] [address] PT Coag (PPP) [Time] 19.7 s High 9.0-12.0 [facility] Comment on above: Result Comment: . Performed By: #### C OVAG #### [facility] [employer] [facility] [address] [place] [address] Protime-INRon 10-26-2021 INR Coag (Bld) [Relative time] 1.9 {INR} High [facility] Work Phone: Comment on above: Recommended [...] of laboratory results Abnormal [facility] Work Phone: PT Coag (PPP) [Time] 19.7 s High 9.0 - 12.0 s [facility] Work Phone: Comment on above: . Test Performed by [facility], [address] [place], [place] [id number] [place] [address] LAB [facility] Work Phone: CA 19-9on 10-25-2021 CA 19-9 17 U/mL Normal <=35 [facility] Work Phone: Comment on above: INTERPRETIVE [...] or absence of malignant disease. Performed By: [place] [address] Store Specialist: Quiana Castro MD Result Comment: INTE [...] or absence of malignant disease. Performed By: [place] [address] Store Specialist: Quiana Castro MD Performed By: #### C OVAG #### [facility] [employer] [facility] [address] [place] [address] Cancer Antigen 19-9on 2021 [facility] Work Phone: Prothrombin Timeon INR 1.5 High 0.9-1.1 [facility] [employer] [facility] Comment on above: [...] Infarction Performed By: #### P T #### [facility] [employer] [facility] [address] [place] [address] PT Coag (PPP) [Time] 15.6 s High 9.0-12.0 [facility] [employer] [facility] Comment on above: Result Comment: . Performed By: #### P T #### [facility] [employer] [facility] [address] [place] [address] Protime-INRon 10-25-2021 INR Coag (Bld) [Relative time] 1.5 {INR} High [facility] Work Phone: Comment on above: Recommended [...] and review of laboratory results Abnormal [facility] Work Phone: PT Coag (PPP) [Time] 15.6 s High 9.0 - 12.0 s [facility] Work Phone: Comment on above: . Test Performed by [facility], [address] [place], [place] [address] [facility] Work Phone: B-2 Glycoprotein (IGA)on Beta-2 Glyco 1 IgA <2.0 U/mL [facility] Work Phone: Comment on above: Interpretive Informa tion: Results equal to or greater than 20 U/mL = POSITIVE Results less than 20 U/mL = NEGATIVE B2 Glycoprotein I (IgM) Abon 10-24-2021 Beta-2 Glyco 1 IgM <1.5 U/mL [facility] Work Phone: Comment on above: Interpretive Informa tion: Results equal to or greater than 20 U/mL = POSITIVE Results less than 20 U/mL = NEGATIVE B2 Glycoprotein I Igg Abon 0 10-24-2021 Beta-2 Glyco 1 IgG <1.4 U/mL [facility] Work Phone: Comment on above: Interpretive Informa tion: Results equal to or greater than 20 U/mL = POSITIVE Results less than 20 U/mL = NEGATIVE Basic Metabolic Panelon 10-06 Anion gap [Moles/Vol] 8 mmol/L Normal 3-13 [facility] Comment on above: Performed By: #### C A19O, LUPUS #### The performing lab is in the report. #### NSEO #### [facility] #### HEMDF, LDH3, BMP3, MG3, PT, CEA2 #### [facility] [address] [place] [address] #### B2GPM, B2GPA, B2GPG #### [facility] [address] [place] [address] Calcium [Mass/Vol] 8.8 mg/dL Normal 8.4-10.4 [facility] Comment on above: Performed By: #### C A19O, LUPUS #### The performing lab is in the report. #### NSEO #### [facility] #### HEMDF, LDH3, BMP3, MG3, PT, CEA2 #### [facility] [address] [place] [address] #### B2GPM, B2GPA, B2GPG #### [address] CO2 [Moles/Vol] 25 mmol/L Normal 22-30 [facility] Comment on above: Performed By: #### C A19O, LUPUS #### The performing lab is in the report. #### NSEO #### [facility] #### HEMDF, LDH3, BMP3, MG3, PT, CEA2 #### [facility] [address] [place] [address] #### B2GPM, B2GPA, B2GPG #### [address] Creatinine [Mass/Vol] 0.74 mg/dL Normal 0.52-1.25 [facility] Comment on above: Performed By: #### C A19O, LUPUS #### The performing lab is in the report. #### NSEO #### [facility] #### HEMDF, LDH3, BMP3, MG3, PT, CEA2 #### [place] [address] [place] [address] #### B2GPM, B2GPA, B2GPG #### [address] eGFR OTHER > 90.0 Normal >60 [facility] Comment on above: Result Comment: KDIG [...] HEMDF, LDH3, BMP3, MG3, PT, CEA2 #### [facility] [address] [place] [address] #### B2GPM, B2GPA, B2GPG #### [address] GFR/1.73 sq M.predicted among blacks MDRD (S/P/Bld) [Vol rate/Area] mL/min/{1.73_m2} Normal >60 [facility] Comment on above: Performed By: #### C Mary LouO, LUPUS #### The performing lab is in the report. #### NSEO #### [facility] #### HEMDF, LDH3, BMP3, MG3, PT, CEA2 #### [facility] [address] [place] [address] #### B2GPM, B2GPA, B2GPG #### [address] Glucose [Mass/Vol] 116 mg/dL High 70-100 [facility] Comment on above: Performed By: #### C A19O, LUPUS #### The performing lab is in the report. #### NSEO #### [facility] #### HEMDF, LDH3, BMP3, MG3, PT, CEA2 #### [facility] [address] [place] [address] #### B2GPM, B2GPA, B2GPG #### [address] Urea nitrogen [Mass/Vol] 19 mg/dL High 7-17 [facility] Comment on above: Performed By: #### C A19O, LUPUS #### The performing lab is in the report. #### NSEO #### [facility] #### HEMDF, LDH3, BMP3, MG3, PT, CEA2 #### [place] [address] [place] [address] #### B2GPM, B2GPA, B2GPG #### [address] Chloride [Moles/Vol] 107 mmol/L Normal 98-107 [facility] Comment on above: Performed By: #### C A19O, LUPUS #### The performing lab is in the report. #### NSEO #### [facility] #### HEMDF, LDH3, BMP3, MG3, PT, CEA2 #### [place] [address] [place] [address] #### B2GPM, B2GPA, B2GPG #### [address] Potassium [Moles/Vol] 3.9 mmol/L Normal 3.5-5.1 [facility] Comment on above: Performed By: #### C A19O, LUPUS #### The performing lab is in the report. #### NSEO #### [facility] #### HEMDF, LDH3, BMP3, MG3, PT, CEA2 #### [address] [place] [address] #### B2GPM, B2GPA, B2GPG #### [address] Sodium [Moles/Vol] 140 mmol/L Normal 135-145 [facility] Comment on above: Performed By: #### C A19O, LUPUS #### The performing lab is in the report. #### NSEO #### [facility] #### HEMDF, LDH3, BMP3, MG3, PT, CEA2 #### [place] [address] [place] [address] #### B2GPM, B2GPA, B2GPG #### [address] [address] Anion gap [Moles/Vol] 8 mmol/L 3 - 13 mmol/L [facility] Calcium [Mass/Vol] 8.8 mg/dL 8.4 - 10. 4 mg/dL [facility] Chloride [Moles/Vol] 107 mmol/L 98 - 10 7 mmol/L [facility] CO2 [Moles/Vol] 25 mmol/L 22 - 30 mmol/L [facility] Creatinine [Mass/Vol] 0.74 mg/dL 0.52 - 1.25 mg/dL [facility] EGFR IF NonAfrican Greenlandic >90.0 >60 mL/min [facility] Comment on above: [...] - 17 mg/dL [facility] Test Performed by [facility], [address] [place], [place], [place] [id number] [place] [address] LAB [facility] Beta-2 Glycoprotein I IgAon 06-20-2022 Beta-2 Glycoprotein I IgA < 2.0 Normal [facility] Comment on above: Result Comment: Inte rpretive Information: Results equal to or greater than 20 U/mL = POSITIVE Results less than 20 U/mL = NEGATIVE Performed By: #### C OVAG #### [facility] [address] [place] [address] Beta-2 Glycoprotein I IgGon 10-24-2021 Beta-2 Glycoprotein I IgG < 1.4 Normal [facility] Comment on above: Result Comment: Inte rpretive Information: Results equal to or greater than 20 U/mL = POSITIVE Results less than 20 U/mL = NEGATIVE Performed By: #### C OVAG #### [facility] [address] [place] [address] Beta-2 Glycoprotein I IgMon 10-24-2021 Beta-2 Glycoprotein I IgM < 1.5 Normal [facility] Comment on above: Result Comment: Inte rpretive Information: Results equal to or greater than 20 U/mL = POSITIVE Results less than 20 U/mL = NEGATIVE Performed By: #### C OVAG #### [facility] [address] [place] [address] No Panel Informationon 10-24 [facility] Test Performed by [facility], [address] [place] [id number] [place] [address] LAB [facility] Work Phone: PROTEIN C FUNCTIONALon 10-24 Interpretation and review of laboratory results Abnormal [facility] Protein C-Functional 185 % High 83 [...] reference intervals for this test in the [facility] ([place]). Performed by [facility], [address] [place] [address] www.[facility], Quiana Castro MD - Lab. Director Protein C, Functionalon 10-06 Protein C, Functional 185 % High 83-168 [facility] Comment on above: Result Comment: INTE RPRETIVE [...] reference intervals for this test in the [employer] [facility] ([place]). Performed by [facility], [address] [place] [address] www.[facility], Quiana Castro MD - Lab. Director Performed By: #### P T #### [facility] [address] [place] [address] Protein S, Functionalon 06-2 Protein S, Functional 138 % Normal 66-143 [facility] Comment on above: INTERPRETIVE INFORMA TION: [...] reference intervals for this test in the [facility] [facility] ([place]). Performed by [facility], [address] [place] [address] www.[place], Quiana Castro MD - Lab. Director Result [...] reference intervals for this test in the [employer] [facility] ([place]). Performed by [facility], [address] [facility],[place] [id number] www.[facility], Quiana Castro MD - Lab. Director Performed By: #### P T #### [facility] [address] [place] [place] [address] Prothrombin Timeon INR 1.2 High 0.9-1.1 [facility] Comment on above: Result Comment: [...] BMP3, MG3, PT, CEA2 #### [place] [address] [place] [address] #### B2GPM, B2GPA, B2GPG #### [address] [phone] PT Coag (PPP) [Time] 12.6 s High 9.0-12.0 [facility] Comment on above: Result Comment: . Performed By: #### C A19O, LUPUS #### The performing lab is in the report. #### NSEO #### [facility] #### HEMDF, LDH3, BMP3, MG3, PT, CEA2 #### [address] [place] [address] #### B2GPM, B2GPA, B2GPG #### [address] [address] Protime-INRon 10-24-2021 INR Coag (Bld) [Relative time] 1.2 {INR} High [facility] Comment on above: Recommended Anticoag ulant [...] of laboratory results Abnormal [facility] PT Coag (PPP) [Time] 12.6 s High 9.0 - 12.0 s [facility] Comment on above: . Test Performed by [facility], [address] LAB [facility] Basic Metabolic Panelon 10-05 Anion gap [Moles/Vol] 10 mmol/L Normal 3-13 [facility] Comment on above: Performed By: #### C A19O, LUPUS #### The performing lab is in the report. #### NSEO #### [facility] #### HEMDF, LDH3, BMP3, MG3, PT, CEA2 #### [place] [address] [place] [address] #### B2GPM, B2GPA, B2GPG #### [address] [address] Calcium [Mass/Vol] 9.6 mg/dL Normal 8.4-10.4 [facility] Comment on above: Performed By: #### C A19O, LUPUS #### The performing lab is in the report. #### NSEO #### [facility] #### HEMDF, LDH3, BMP3, MG3, PT, CEA2 #### [facility] [address] [place] [address] #### B2GPM, B2GPA, B2GPG #### [address] [address] CO2 [Moles/Vol] 27 mmol/L Normal 22-30 [facility] Comment on above: Performed By: #### C A19O, LUPUS #### The performing lab is in the report. #### NSEO #### [facility] #### HEMDF, LDH3, BMP3, MG3, PT, CEA2 #### [address] [place] [address] #### B2GPM, B2GPA, B2GPG #### [address] Glucose [Mass/Vol] 109 mg/dL High 70-100 [facility] Comment on above: Performed By: #### C A19O, LUPUS #### The performing lab is in the report. #### NSEO #### [facility] #### HEMDF, LDH3, BMP3, MG3, PT, CEA2 #### [address] [place] [address] #### B2GPM, B2GPA, B2GPG #### [address] Urea nitrogen [Mass/Vol] 18 mg/dL High 7-17 [facility] Comment on above: Performed By: #### C A19O, LUPUS #### The performing lab is in the report. #### NSEO #### [facility] #### HEMDF, LDH3, BMP3, MG3, PT, CEA2 #### [address] [place] [address] #### B2GPM, B2GPA, B2GPG #### [address] Creatinine [Mass/Vol] 0.82 mg/dL Normal 0.52-1.25 [facility] Comment on above: Performed By: #### C A19O, LUPUS #### The performing lab is in the report. #### NSEO #### [facility] #### HEMDF, LDH3, BMP3, MG3, PT, CEA2 #### [address] [place] [address] #### B2GPM, B2GPA, B2GPG #### [address] GFR/1.73 sq M.predicted among blacks MDRD (S/P/Bld) [Vol rate/Area] mL/min/{1.73_m2} Normal >60 [facility] Comment on above: Performed By: #### C A19O, LUPUS #### The performing lab is in the report. #### NSEO #### [facility] #### HEMDF, LDH3, BMP3, MG3, PT, CEA2 #### [facility] [address] [place] [address] #### B2GPM, B2GPA, B2GPG #### [facility] [address] [place] [address] GFR/1.73 sq M.predicted among non-blacks MDRD (S/P/Bld) [Vol rate/Area] 89.9 mL/min/{1.73_m2} Normal >60 [facility] Comment on above: Result Comment: KDIG [...] HEMDF, LDH3, BMP3, MG3, PT, CEA2 #### [facility] [address] [place] [address] #### B2GPM, B2GPA, B2GPG #### [facility] [address] [place] [address] Chloride [Moles/Vol] 104 mmol/L Normal 98-107 [facility] Comment on above: Performed By: #### C A19O, LUPUS #### The performing lab is in the report. #### NSEO #### [facility] #### HEMDF, LDH3, BMP3, MG3, PT, CEA2 #### [place] [address] [place] [address] #### B2GPM, B2GPA, B2GPG #### [address] Potassium [Moles/Vol] 3.9 mmol/L Normal 3.5-5.1 [facility] Comment on above: Performed By: #### C A19O, LUPUS #### The performing lab is in the report. #### NSEO #### [facility] #### HEMDF, LDH3, BMP3, MG3, PT, CEA2 #### [place] [address] [place] [address] #### B2GPM, B2GPA, B2GPG #### [address] Sodium [Moles/Vol] 142 mmol/L Normal 135-145 [facility] Comment on above: Performed By: #### C A19O, LUPUS #### The performing lab is in the report. #### NSEO #### [facility] #### HEMDF, LDH3, BMP3, MG3, PT, CEA2 #### [place] [address] [place] [address] #### B2GPM, B2GPA, B2GPG #### [address] Anion gap [Moles/Vol] 10 mmol/L 3 - 13 mmol/L [facility] Work Phone: Calcium [Mass/Vol] 9.6 mg/dL 8.4 - 10. 4 mg/dL [facility] Work Phone: [phone] Chloride [Moles/Vol] 104 mmol/L 98 - 10 7 mmol/L [facility] Work Phone: [phone] CO2 [Moles/Vol] 27 mmol/L 22 - 30 mmol/L [facility] Work Phone: Creatinine [Mass/Vol] 0.82 mg/dL 0.52 - 1.25 mg/dL [facility] Work Phone: EGFR IF NonAfrican Greenlandic 89.9 mL/min >[facility] Work Phone: [phone] Comment on above: KDIGO guidelines pro [...] (S/P/Bld) [Vol rate/Area] mL/min/{1.73_m2} >60 mL/min [facility] Work Phone: [phone] Glucose [Mass/Vol] 109 mg/dL High 70 - 100 mg/dL [facility] Work Phone: [phone] Interpretation and review of laboratory results Abnormal [facility] Work Phone: [phone] Potassium [Moles/Vol] 3.9 mmol/L 3.5 - 5.1 mmol/L [facility] Work Phone: Sodium [Moles/Vol] 142 mmol/L 135 - 145 mmol/L [facility] Work Phone: Urea nitrogen (BldV) [Mass/Vol] 18 mg/dL High 7 - 17 mg/dL [facility] Work Phone: CBC with Auto Differentialon [...] (Bld) 3.9 % 1.0 - 6.0 % [facility] Work Phone: [phone] Granulocytes/100 WBC (Bld) 64.0 % 40.0 - 80.0 % [facility] Work Phone: [phone] Hematocrit (Bld) [Volume fraction] 35.1 % Low 40.0 - 52.0 % [facility] Work Phone: [phone] Hemoglobin (Bld) [Mass/Vol] 11.6 g/dL Low 13.0 - 18.0 g/dL [facility] Work Phone: [phone] Interpretation and review of laboratory results Abnormal [facility] Work Phone: [phone] Lymphocytes (Bld) [#/Vol] 2.6 10*3/uL 1.0 - 4.3 10*3/uL [facility] Work Phone: [phone] Lymphocytes/100 WBC (Bld) 25.0 % 20.0 - 40.0 % [facility] Work Phone: [phone] MCH (RBC) [Entitic mass] 28.4 pg 26.0 - 34.0 pg [facility] Work Phone: [phone] MCHC (RBC) [Mass/Vol] 33.1 % 32.0 - 36.0 % [facility] Work Phone: [phone] MCV (RBC) [Entitic vol] 85.9 fL 80.0 - 98.0 fL [facility] Work Phone: [phone] Monocytes (Bld) [#/Vol] [...] 450 10*3/uL High 140 - 440 10*3/uL [facility] Work Phone: [phone] RBC (Bld) [#/Vol] 4.08 10*6/uL Low 4.40 - 5.9 0 10*6/uL [facility] Work Phone: [phone] WBC (Bld) [#/Vol] 10.3 10*3/uL 3.6 - 10.7 10*3/uL [facility] Work Phone: [phone] Test Performed by [facility], [address] LAB [facility] Work Phone: [phone] CEAon 10-23-2021 CEA 0.8 ng/mL 0.0 - 3.0 ng/mL [facility] Work Phone: [phone] Test Performed by [facility] [employer] [facility], [address] LAB [facility] Work Phone: [phone] Carcinoembryonic Agon 2021 Carcinoembryonic Ag. 0.8 ng/mL Normal 0.0-3.0 [facility] [employer] [facility] Comment on above: Performed By: #### C A19O, LUPUS #### The performing lab is in the report. #### NSEO #### [facility] #### HEMDF, LDH3, BMP3, MG3, PT, CEA2 #### [facility] [employer] [facility] [address] [place] [address] #### B2GPM, B2GPA, B2GPG #### [address] Hemogram w/ Autodiffon 10-23 Abs Baso Cnt 0.1 10*3/uL Normal 0.0-0.2 [facility] Comment on above: Performed By: #### C A19O, LUPUS #### The performing lab is in the report. #### NSEO #### [facility] #### HEMDF, LDH3, BMP3, MG3, PT, CEA2 #### [facility] [address] [place], [place] #### B2GPM, B2GPA, B2GPG #### [address] Abs Neutrophile Cnt 6.6 10*3/uL Normal 1.8-7.0 [facility] Comment on above: Performed By: #### C A19O, LUPUS #### The performing lab is in the report. #### NSEO #### [facility] #### HEMDF, LDH3, BMP3, MG3, PT, CEA2 #### [facility] [address] [place] #### B2GPM, B2GPA, B2GPG #### [address] Basophils/100 WBC (Bld) 1.1 % Normal 0.0-2.0 [facility] Comment on above: Performed By: #### C A19O, LUPUS #### The performing lab is in the report. #### NSEO #### [facility] #### HEMDF, LDH3, BMP3, MG3, PT, CEA2 #### [facility] [address] [place] #### B2GPM, B2GPA, B2GPG #### [address] Eosinophils (Bld) [#/Vol] 0.4 10*3/uL Normal 0.0-0.5 [facility] Comment on above: Performed By: #### C A19O, LUPUS #### The performing lab is in the report. #### NSEO #### [facility] #### HEMDF, LDH3, BMP3, MG3, PT, CEA2 #### [facility] [address] [place] [address] #### B2GPM, B2GPA, B2GPG #### [address] [address] Eosinophils/100 WBC (Bld) 3.9 % Normal 1.0-6.0 [facility] Comment on above: Performed By: #### C A19O, LUPUS #### The performing lab is in the report. #### NSEO #### [facility] #### HEMDF, LDH3, BMP3, MG3, PT, CEA2 #### [facility] [address] [place] [address] #### B2GPM, B2GPA, B2GPG #### [address] [address] Erythrocyte distribution width (RBC) [Ratio] 17.4 % High 11.5-14.5 [facility] Comment on above: Performed By: #### C A19O, LUPUS #### The performing lab is in the report. #### NSEO #### [facility] #### HEMDF, LDH3, BMP3, MG3, PT, CEA2 #### [facility] [address] [place] [address] #### B2GPM, B2GPA, B2GPG #### [address] [address] Granulocytes/100 WBC (Bld) 64.0 % Normal 40.0-80.0 [facility] Comment on above: Performed By: #### C A19O, LUPUS #### The performing lab is in the report. #### NSEO #### [facility] #### HEMDF, LDH3, BMP3, MG3, PT, CEA2 #### [place] [address] [place] #### B2GPM, B2GPA, B2GPG #### [address] Hematocrit (Bld) [Volume fraction] 35.1 % Low 40.0-52.0 [facility] Comment on above: Performed By: #### C A19O, LUPUS #### The performing lab is in the report. #### NSEO #### [facility] #### HEMDF, LDH3, BMP3, MG3, PT, CEA2 #### [address] [place] #### B2GPM, B2GPA, B2GPG #### [address] Hemoglobin (Bld) [Mass/Vol] 11.6 g/dL Low 13.0-18.0 [facility] Comment on above: Performed By: #### C A19O, LUPUS #### The performing lab is in the report. #### NSEO #### [facility] #### HEMDF, LDH3, BMP3, MG3, PT, CEA2 #### [address] [place] #### B2GPM, B2GPA, B2GPG #### [address] Lymphocytes (Bld) [#/Vol] 2.6 10*3/uL Normal 1.0-4.3 [facility] Comment on above: Performed By: #### C A19O, LUPUS #### The performing lab is in the report. #### NSEO #### [facility] #### HEMDF, LDH3, BMP3, MG3, PT, CEA2 #### [address] [place] #### B2GPM, B2GPA, B2GPG #### [address] Lymphocytes/100 WBC (Bld) 25.0 % Normal 20.0-40.0 [facility] Comment on above: Performed By: #### C A19O, LUPUS #### The performing lab is in the report. #### NSEO #### [facility] #### HEMDF, LDH3, BMP3, MG3, PT, CEA2 #### [facility] [address] [place] [address] #### B2GPM, B2GPA, B2GPG #### [address] MCH (RBC) [Entitic mass] 28.4 pg Normal 26.0-34.0 [facility] Comment on above: Performed By: #### C A19O, LUPUS #### The performing lab is in the report. #### NSEO #### [facility] #### HEMDF, LDH3, BMP3, MG3, PT, CEA2 #### [facility] [address] [place] #### B2GPM, B2GPA, B2GPG #### [address] MCHC 33.1 % Normal 32.0-36.0 [facility] Comment on above: Performed By: #### C A19O, LUPUS #### The performing lab is in the report. #### NSEO #### [facility] #### HEMDF, LDH3, BMP3, MG3, PT, CEA2 #### [facility] [address] [place] #### B2GPM, B2GPA, B2GPG #### [address] MCV (RBC) [Entitic vol] 85.9 fL Normal 80.0-98.0 [facility] Comment on above: Performed By: #### C A19O, LUPUS #### The performing lab is in the report. #### NSEO #### [facility] #### HEMDF, LDH3, BMP3, MG3, PT, CEA2 #### [place] [address] [place] #### B2GPM, B2GPA, B2GPG #### [address] Monocytes (Bld) [#/Vol] 0.6 10*3/uL Normal 0.0-0.8 [facility] Comment on above: Performed By: #### C A19O, LUPUS #### The performing lab is in the report. #### NSEO #### [facility] #### HEMDF, LDH3, BMP3, MG3, PT, CEA2 #### [address] [place] #### B2GPM, B2GPA, B2GPG #### [address] Monocytes/100 WBC (Bld) 6.0 % Normal 2.0-10.0 [facility] Comment on above: Performed By: #### C A19O, LUPUS #### The performing lab is in the report. #### NSEO #### [facility] #### HEMDF, LDH3, BMP3, MG3, PT, CEA2 #### [address] [facility] [place] [place] #### B2GPM, B2GPA, B2GPG #### [address] Platelet mean volume (Bld) [Entitic vol] 8.1 fL Normal 7.4-12.4 [facility] Comment on above: Result Comment: MPV is a calculated measurement using platelet volume ratio. Performed By: #### C A19O, LUPUS #### The performing lab is in the report. #### NSEO #### [facility] #### HEMDF, LDH3, BMP3, MG3, PT, CEA2 #### [place] [address] [place] #### B2GPM, B2GPA, B2GPG #### [place] [address] [place], [place] Platelets (Bld) [#/Vol] 450 10*3/uL High 140-440 [facility] Comment on above: Performed By: #### C A19O, LUPUS #### The performing lab is in the report. #### NSEO #### [facility] #### HEMDF, LDH3, BMP3, MG3, PT, CEA2 #### [facility] [address] [place] #### B2GPM, B2GPA, B2GPG #### [address] RBC (Bld) [#/Vol] 4.08 10*6/uL Low 4.40-5.90 [facility] Comment on above: Performed By: #### C A19O, LUPUS #### The performing lab is in the report. #### NSEO #### [facility] #### HEMDF, LDH3, BMP3, MG3, PT, CEA2 #### [facility] [address] [place] #### B2GPM, B2GPA, B2GPG #### [address] WBC (Bld) [#/Vol] 10.3 10*3/uL Normal 3.6-10.7 [facility] Comment on above: Performed By: #### C A19O, LUPUS #### The performing lab is in the report. #### NSEO #### [facility] #### HEMDF, LDH3, BMP3, MG3, PT, CEA2 #### [facility] [address] [place] [address] #### B2GPM, B2GPA, B2GPG #### [address] LDHon 10-23-2021 LDH 136 U/L Normal 120-246 [facility] Comment on above: Performed By: #### C A19O, LUPUS #### The performing lab is in the report. #### NSEO #### [facility] #### HEMDF, LDH3, BMP3, MG3, PT, CEA2 #### [employer] [address] [place] [address] #### B2GPM, B2GPA, B2GPG #### [employer] [address] [place] [address] Lactate Dehydrogenaseon - LD 136 U/L 120 - 246 U/L [facility] Work Phone: MRI ABDOMEN WO CONTRASTon Patient Name: ANDREW SIFUENTES [facility] ACCESSION EXAM DATE/TIME PROCEDURE ORDERING PROVIDER [id number] 10/23/2021 11:08 EDT MRI Abdomen w/o Contrast DONOVAN SRIVASTAVAW CPT code 52442 Reason For Exam (MRI Abdomen w/o Contrast) [...] Imaging ACCESSION EXAM DATE/TIME PROCEDURE ORDERING PROVIDER [id number] 10/23/2021 11:08 EDT MRI Abdomen w/o Contrast WING SRIVASTAVA CPT code 21487 Reason For Exam (MRI Abdomen w/o Contrast) [...] CONTRASTOrder ed By: Unknown [facility] 0 10-23-2021 MRI Abdomen w/o Contrast [id number] Res[facility] Imaging ACCESSION EXAM DATE/TIME PROCEDURE ORDERING PROVIDER [id number] 10/23/2021 11:08 EDT MRI Abdomen w/o Contrast WING SRIVASTAVA CPT code 10353 Reason For Exam (MRI Abdomen w/o Contrast) [...] Transcribed Date and Time: 10/23/2021 4:36 Normal [facility] Magnesiumon 10-23-2021 Magnesium [Mass/Vol] 2.1 mg/dL Normal 1.6-2.3 [facility] Comment on above: Performed By: #### C A19O, LUPUS #### The performing lab is in the report. #### NSEO #### [facility] #### HEMDF, LDH3, BMP3, MG3, PT, CEA2 #### [facility] [address] [place] [address] #### B2GPM, B2GPA, B2GPG #### [address] [phone] Magnesium [Mass/Vol] 2.1 mg/dL 1.6 - 2 .3 mg/dL [facility] Work Phone: No Panel Informationon 10-23 Test Performed by [facility], [address] [place], [place] [address] [place] [address] LAB [facility] Work Phone: Prothrombin Timeon 2 INR 1.1 Normal 0.9-1.1 [facility] Comment on above: Result Comment: [...] HEMDF, LDH3, BMP3, MG3, PT, CEA2 #### [address] [place] [address] #### B2GPM, B2GPA, B2GPG #### [address] [phone] PT Coag (PPP) [Time] 12.2 s High 9.0-12.0 [facility] Comment on above: Result Comment: . Performed By: #### C A19O, LUPUS #### The performing lab is in the report. #### NSEO #### [facility] #### HEMDF, LDH3, BMP3, MG3, PT, CEA2 #### [address] [place] [address] #### B2GPM, B2GPA, B2GPG #### [address] [phone] Protime-INRon 10-23-2021 INR Coag (Bld) [Relative time] 1.1 {INR} [facility] Work Phone: Comment on above: Recommended [...] of laboratory results Abnormal [facility] Work Phone: PT Coag (PPP) [Time] 12.2 s High 9.0 - 12.0 s [facility] Work Phone: Comment on above: . Test Performed by [facility], [address] [place] [address] [facility] Work Phone: Basic Metabolic Panelon 10-05-2021 Calcium [Mass/Vol] 8.9 mg/dL Normal 8.4-10.4 [facility] Comment on above: Performed By: #### P T #### [facility] [address] [place] [address] Glucose [Mass/Vol] 110 mg/dL High 70-100 [facility] Comment on above: Performed By: #### P T #### [facility] [address] [place] [address] Urea nitrogen [Mass/Vol] 14 mg/dL Normal 7-17 [facility] Comment on above: Performed By: #### P T #### [facility] [address] [place] [address] Anion gap [Moles/Vol] 7 mmol/L Normal 3-13 [facility] Comment on above: Performed By: #### P T #### [facility] [address] [place] [address] CO2 [Moles/Vol] 26 mmol/L Normal 22-30 [facility] Comment on above: Performed By: #### P T #### [facility] [address] [place] [address] Creatinine [Mass/Vol] 0.71 mg/dL Normal 0.52-1.25 [facility] Comment on above: Performed By: #### P T #### [facility] [address] [place] [address] eGFR OTHER > 90.0 Normal >60 [facility] Comment on above: Result Comment: KDIG [...] secretion. Performed By: #### P T #### [facility] [address] [place] [address] GFR/1.73 sq M.predicted among blacks MDRD (S/P/Bld) [Vol rate/Area] mL/min/{1.73_m2} Normal >60 [facility] Comment on above: Performed By: #### P T #### [facility] [address] [place] [address] Potassium [Moles/Vol] 3.8 mmol/L Normal 3.5-5.1 [facility] Comment on above: Performed By: #### P T #### [facility] [address] [place] [address] Chloride [Moles/Vol] 106 mmol/L Normal 98-107 [facility] Comment on above: Performed By: #### P T #### [facility] [address] [place] [address] Sodium [Moles/Vol] 139 mmol/L Normal 135-145 [facility] Comment on above: Performed By: #### P T #### [place] [address] [place] [address] Anion gap [Moles/Vol] 7 mmol/L 3 - 13 mmol/L [facility] Calcium [Mass/Vol] 8.9 mg/dL 8.4 - 10. 4 mg/dL [facility] Chloride [Moles/Vol] 106 mmol/L 98 - 10 7 mmol/L [facility] CO2 [Moles/Vol] 26 mmol/L 22 - 30 mmol/L [facility] Creatinine [Mass/Vol] 0.71 mg/dL 0.52 - 1.25 mg/dL [facility] EGFR IF NonAfrican Greenlandic >90.0 >60 mL/min [facility] Comment on above: [...] - 10.7 10*3/uL [facility] Test Performed by [facility], [address] [place], [place] [id number] [place] [address] [facility] Pelvis Wo Umair johnston 10-22-2021 Patient Name: ANDREW SIFUENTES Computed Tomography ACCESSION EXAM DATE/TIME PROCEDURE ORDERING PROVIDER [id number] 10/22/2021 13:[address] Abdomen/Pelvis (No WING SRIVASTAVA PO, No IV) CPT code 82211 Reason For Exam (CT Abdomen/Pelvis (No PO, [...] HARLAN Transcribed Date and Time: 10/22/2021 2:37 [facility] Humphrey Melton MD - 10/22/2021 Patient Name: ANDREW SIFUENTES Computed Tomography ACCESSION EXAM DATE/TIME PROCEDURE ORDERING PROVIDER [id number] 10/22/2021 13:[address] Abdomen/Pelvis (No SRIVASTAVA, WING PO, No IV) CPT code 78605 Reason For Exam (CT Abdomen/Pelvis (No PO, [...] Tomography ACCESSION EXAM DATE/TIME PROCEDURE ORDERING PROVIDER [id number] 10/22/2021 13:[address] Abdomen/Pelvis (No SRIVASTAVA, WING PO, No IV) CPT code 91094 Reason For Exam (CT Abdomen/Pelvis (No PO, [...] Transcribed Date and Time: 10/22/2021 2:37 Normal [facility] Hemogram w/ Autodiffon 10-22 Abs Baso Cnt 0.1 10*3/uL Normal 0.0-0.2 [facility] Comment on above: Performed By: #### P T #### [facility] [address] [place] [address] Abs Neutrophile Cnt 6.0 10*3/uL Normal 1.8-7.0 [facility] Comment on above: Performed By: #### P T #### [facility] [address] [place] [address] Basophils/100 WBC (Bld) 1.0 % Normal 0.0-2.0 [facility] Comment on above: Performed By: #### P T #### [facility] [address] [place] [address] Eosinophils (Bld) [#/Vol] 0.3 10*3/uL Normal 0.0-0.5 [facility] Comment on above: Performed By: #### P T #### [facility] [address] [place] [address] Eosinophils/100 WBC (Bld) 3.0 % Normal 1.0-6.0 [facility] Comment on above: Performed By: #### P T #### [facility] [address] [place] [address] Erythrocyte distribution width (RBC) [Ratio] 17.1 % High 11.5-14.5 [facility] Comment on above: Performed By: #### P T #### [facility] [address] [place] [address] Granulocytes/100 WBC (Bld) 64.1 % Normal 40.0-80.0 [facility] Comment on above: Performed By: #### P T #### [facility] [address] [place] [address] Hematocrit (Bld) [Volume fraction] 33.4 % Low 40.0-52.0 [facility] Comment on above: Performed By: #### P T #### [facility] [address] [place] [address] Hemoglobin (Bld) [Mass/Vol] 10.9 g/dL Low 13.0-18.0 [facility] Comment on above: Performed By: #### P T #### [facility] [address] [place] [address] Lymphocytes (Bld) [#/Vol] 2.5 10*3/uL Normal 1.0-4.3 [facility] Comment on above: Performed By: #### P T #### [facility] [address] [place] [address] Lymphocytes/100 WBC (Bld) 26.3 % Normal 20.0-40.0 [facility] Comment on above: Performed By: #### P T #### [place] [address] [place] [address] MCH (RBC) [Entitic mass] 28.2 pg Normal 26.0-34.0 [facility] Comment on above: Performed By: #### P T #### [place] [address] [place] [address] MCHC 32.7 % Normal 32.0-36.0 [facility] Comment on above: Performed By: #### P T #### [facility] [address] [place] [address] MCV (RBC) [Entitic vol] 86.3 fL Normal 80.0-98.0 [facility] Comment on above: Performed By: #### P T #### [place] [address] [place] [address] Monocytes (Bld) [#/Vol] 0.5 10*3/uL Normal 0.0-0.8 [facility] Comment on above: Performed By: #### P T #### [facility] [address] [place] [address] Monocytes/100 WBC (Bld) 5.6 % Normal 2.0-10.0 [facility] Comment on above: Performed By: #### P T #### [place] [address] [place] [address] Platelet mean volume (Bld) [Entitic vol] 7.6 fL Normal 7.4-12.4 [facility] Comment on above: Result Comment: MPV is a calculated measurement using platelet volume ratio. Performed By: #### P T #### [place] [address] [place] [address] Platelets (Bld) [#/Vol] 369 10*3/uL Normal 140-440 [facility] Comment on above: Performed By: #### P T #### [facility] [address] [place] [address] RBC (Bld) [#/Vol] 3.87 10*6/uL Low 4.40-5.90 [facility] Comment on above: Performed By: #### P T #### [facility] [address] [place] [address] WBC (Bld) [#/Vol] 9.4 10*3/uL Normal 3.6-10.7 [facility] Comment on above: Performed By: #### P T #### [facility] [address] [place] [address] Magnesiumon 10-22-2021 Magnesium [Mass/Vol] 2.0 mg/dL Normal 1.6-2.3 [facility] Comment on above: Performed By: #### P T #### [facility] [address] [place] [address] Magnesium [Mass/Vol] 2.0 mg/dL 1.6 - 2 .3 mg/dL [facility] No Panel Informationon 10-22 Radiology Study observation (narrative) [facility] Work Phone: Test Performed by [facility], [address] [place], [place] [address] [facility] Prothrombin Timeon 2 INR 1.1 Normal 0.9-1.1 [facility] Comment on above: Result Comment: [...] HEMDF, LDH3, BMP3, MG3, PT, CEA2 #### [facility] [address] [place] [address] #### B2GPM, B2GPA, B2GPG #### [facility] [address] [place] [address] PT Coag (PPP) [Time] 11.8 s Normal 9.0-12.0 [facility] Comment on above: Result Comment: . Performed By: #### C A19O, LUPUS #### The performing lab is in the report. #### NSEO #### [facility] #### HEMDF, LDH3, BMP3, MG3, PT, CEA2 #### [facility] [address] [place] [address] #### B2GPM, B2GPA, B2GPG #### [facility] [address] [place] [address] Protime-INRon 10-22-2021 INR Coag (Bld) [Relative time] 1.1 {INR} [facility] Work Phone: Comment on above: Recommended [...] [Time] 11.8 s 9.0 - 12.0 s [facility] Work Phone: Comment on above: . Test Performed by [facility] [employer] [facility], [address] [place], [place] [address] [facility] Work Phone: VL Ankle Art Brachial Indice s Extremity Bilateralon 10-22-2021 [facility] Ankle Brachial Index Report Patient DO GurpreetB: 1950 Study 10/21/2021 Name: Andrew Gonzalez (71yrs) Date: Age: 71 Account: [id number] Gender: M Loc: 444W BP: Ordering Physician: Shruthi Malik Timber Management Specialist: Rody Cross RDMS, RVT Interpreting Physician: Carina Call Location: [facility] Indications: Foot wounds. Originally ordered as a full PVR. Ordering DRAFTER CARTOGRAPHIC had to modify the order to ABIs [...] supine position. Images were obtained using a [employer] vascular ultrasound machine. Arterial pressure indices: + [...] electronically signed by Carina Call 10/22/2021 13:21 [facility] Carina Call MD - 10/22/2021 [facility] Ankle Brachial Index Report Patient RADHA Sifuentes: 1950 Study 10/21/2021 Name: Andrew Gonzalez (71yrs) Date: Age: 71 Account: [id number] Gender: M Loc: 444W BP: Ordering Physician: Shruthi Malik Timber Management Specialist: Rody Cross RDMS, RVT Interpreting Physician: Carina Call Location: [facility] Indications: Foot wounds. Originally ordered as a full PVR. Ordering DRAFTER CARTOGRAPHIC had to modify the order to ABIs [...] supine position. Images were obtained using a [employer] vascular ultrasound machine. Arterial pressure indices: + [...] by Carina Call 10/22/2021 13:21 [facility] Work Phone: [facility] Work Phone: Basic Metabolic Panelon 10-05 Calcium [Mass/Vol] 9.1 mg/dL Normal 8.4-10.4 [facility] Comment on above: Performed By: #### C OVAG #### [facility] [address] [place] [address] Anion gap [Moles/Vol] 6 mmol/L Normal 3-13 [facility] Comment on above: Performed By: #### C OVAG #### [facility] [employer] [facility] [address] [place] [address] CO2 [Moles/Vol] 29 mmol/L Normal 22-30 [facility] Comment on above: Performed By: #### C OVAG #### [facility] [address] [place] [address] Creatinine [Mass/Vol] 0.90 mg/dL Normal 0.52-1.25 [facility] Comment on above: Performed By: #### C OVAG #### [facility] [address] [place] [address] GFR/1.73 sq M.predicted among blacks MDRD (S/P/Bld) [Vol rate/Area] mL/min/{1.73_m2} Normal >60 [facility] Comment on above: Performed By: #### C OVAG #### [facility] [address] [place] [address] GFR/1.73 sq M.predicted among non-blacks MDRD (S/P/Bld) [Vol rate/Area] 86.6 mL/min/{1.73_m2} Normal >60 [facility] Comment on above: Result Comment: KDIG [...] secretion. Performed By: #### C OVAG #### [facility] [address] [place] [address] Glucose [Mass/Vol] 106 mg/dL High 70-100 [facility] Comment on above: Performed By: #### C OVAG #### [facility] [address] [place] [address] Urea nitrogen [Mass/Vol] 18 mg/dL High 7-17 [facility] Comment on above: Performed By: #### C OVAG #### [facility] [address] [place] [address] Chloride [Moles/Vol] 105 mmol/L Normal 98-107 [facility] Comment on above: Performed By: #### C OVAG #### [facility] [address] [place] [address] Potassium [Moles/Vol] 4.3 mmol/L Normal 3.5-5.1 [facility] Comment on above: Performed By: #### C OVAG #### [facility] [address] [place] [address] Sodium [Moles/Vol] 139 mmol/L Normal 135-145 [facility] Comment on above: Performed By: #### C OVAG #### [facility] [address] [place] [address] Anion gap [Moles/Vol] 6 mmol/L 3 - 13 mmol/L [facility] Calcium [Mass/Vol] 9.1 mg/dL 8.4 - 10. 4 mg/dL [facility] Chloride [Moles/Vol] 105 mmol/L 98 - 10 7 mmol/L [facility] CO2 [Moles/Vol] 29 mmol/L 22 - 30 mmol/L [facility] Creatinine [Mass/Vol] 0.9 mg/dL 0.52 - 1.25 mg/dL [facility] EGFR IF NonAfrican Greenlandic 86.6 mL/min >60 [facility] Comment on above: KDIGO guidelines pro [...] - 17 mg/dL [facility] Test Performed by [facility], [address] [place], [place], [place] [id number] [place] [address] LAB [facility] C-Reactive Proteinon 022 CRP [Mass/Vol] 33.5 mg/L High 0.0-9.9 [facility] Comment on above: Result Comment: . Performed By: #### P T #### [facility] [address] [place] [address] CRP [Mass/Vol] 33.5 mg/L High 0.0 - 9.9 mg/L [facility] Comment on above: . Interpretation and review of laboratory results Abnormal [facility] Test Performed by [facility], [address] [place], [address] LAB [facility] CR Calcaneus 2+ Views Lefton 10-21-2021 CR Calcaneus 2+ Views Left Patient [facility]: [id number] Diagnostic Radiology ACCESSION EXAM DATE/TIME PROCEDURE ORDERING PROVIDER [id number] 10/21/2021 15:30 EDT CR Calcaneus 2+ Views [id number] -SHRUTHI MALIK Left CPT code 21599 Reason For Exam (CR Calcaneus 2+ Views [...] Transcribed Date and Time: 10/21/2021 4:33 Normal [facility] CR Chest 1 View Frontalon CR Chest 1 View Frontal Patient Name: ANDREW SIFUENTES Diagnostic Radiology ACCESSION EXAM DATE/TIME PROCEDURE ORDERING PROVIDER [id number] 10/21/2021 08:16 EDT CR Chest 1 View Frontal [id number] MAY BOGGS CPT code 53561 Reason For Exam (CR Chest 1 View [...] Transcribed Date and Time: 10/21/2021 8:33 Normal [facility] D-Dimer, Innovanceon 022 D-Dimer, Innovance 1.51 mg/L High <0.19-0.50 [facility] Comment on above: Result Comment: Inno saba D-Dimer values of <0.50 mg/L FEU can be used in combination with a pre-test probability model (e.g. Well's) to exclude pulmonary embolism (PE) disease, as well as an aid in the diagnosis of deep vein thrombosis (DVT). Performed By: #### P T #### [facility] [address] [place] [address] D-Dimer, Quantitativeon 10-05 D-Dimer, Quant 1.51 mg/L High <0.19 - 0.50 [facility] Comment on above: [facility] D-Dimer va lues of <0.50 mg/L FEU can be used in combination with a pre-test probability model (e.g. Well's) to exclude pulmonary embolism (PE) disease, as well as an aid in the diagnosis of deep vein thrombosis (DVT). Interpretation and review of laboratory results Abnormal [facility] Test Performed by [facility], [address] [place], [place], [place] [address] [facility] ED Provider Noteon 2 ED Provider Note [facility] ED EMERGENCY DEPARTMENT ENCOUNTER Pt [...] (HCC) ? Kidney stone ? Neuropathy ? BEVELER (ventriculoperitoneal) shunt status SURGICAL HISTORY Past Surgical [...] and Family: Not on file ? Attends [employer] Services: Not on file ? Active Member [...] LUNGS: Respirations (more content not included)... Normal [facility] [employer] [facility] Hemogramon 10-21-2021 Erythrocyte distribution width (RBC) [Ratio] 17.3 % High 11.5-14.5 [facility] Comment on above: Performed By: #### C OVAG #### [facility] [address] [place] [address] Hematocrit (Bld) [Volume fraction] 33.6 % Low 40.0-52.0 [facility] Comment on above: Performed By: #### C OVAG #### [facility] [address] [place] [address] Hemoglobin (Bld) [Mass/Vol] 10.9 g/dL Low 13.0-18.0 [facility] Comment on above: Performed By: #### C OVAG #### [facility] [address] [place] [address] MCH (RBC) [Entitic mass] 27.8 pg Normal 26.0-34.0 [facility] Comment on above: Performed By: #### C OVAG #### [facility] [address] [place] [address] MCHC 32.5 % Normal 32.0-36.0 [facility] Comment on above: Performed By: #### C OVAG #### [facility] [address] [place] [address] MCV (RBC) [Entitic vol] 85.6 fL Normal 80.0-98.0 [facility] Comment on above: Performed By: #### C OVAG #### [facility] [address] [place] [address] Platelet mean volume (Bld) [Entitic vol] 7.7 fL Normal 7.4-12.4 [facility] Comment on above: Result Comment: MPV is a calculated measurement using platelet volume ratio. Performed By: #### C OVAG #### [facility] [address] [place] [address] Platelets (Bld) [#/Vol] 404 10*3/uL Normal 140-440 [facility] Comment on above: Performed By: #### C OVAG #### [facility] [address] [place] [address] RBC (Bld) [#/Vol] 3.93 10*6/uL Low 4.40-5.90 [facility] Comment on above: Performed By: #### C OVAG #### [facility] [address] [place] [address] WBC (Bld) [#/Vol] 11.6 10*3/uL High 3.6-10.7 [facility] Comment on above: Performed By: #### C OVAG #### [facility] [address] [place] [address] Hemogram (CBC)on 10-21-2021 Hematocrit (Bld) [Volume fraction] 33.6 % Low 40.0 - 52.0 % [facility] Hemoglobin (Bld) [Mass/Vol] 10.9 g/dL Low 13.0 - 18.0 g/dL [facility] Interpretation and review of laboratory results [...] vol] 7.7 fL 7.4 - 12.[address] [facility] Comment on above: MPV is a calculated measurement using platelet volume ratio. Platelets (Bld) [#/Vol] 404 10*3/uL 140 - 440 10*3/uL [facility] RBC (Bld) [#/Vol] 3.93 10*6/uL Low 4.40 - 5.9 0 10*6/uL [facility] WBC (Bld) [#/Vol] 11.6 10*3/uL High 3.6 - 10.7 10*3/uL [facility] Test Performed by [facility], [address] [place], [place] [address] [facility] LUNG VENT/PERFUSION (VQ)o n 10-21-2021 Patient Name: ANDREW SIFUENTES Nuclear Medicine ACCESSION EXAM DATE/TIME PROCEDURE ORDERING PROVIDER [id number] 10/21/2021 07:55 EDT NM Pulmonary Perfusion [id number] CASH w/ Vent Aerosol CPT code 57785 A9567 Reason For Exam (NM Pulmonary Perfusion [...] JOHN Transcribed Date and Time: 10/21/2021 8:49 [facility] Henry Harvey MD - 10/21/2021 Patient Name: ANDREW SIFUENTES Nuclear Medicine ACCESSION EXAM DATE/TIME PROCEDURE ORDERING PROVIDER [id number] 10/21/2021 07:55 EDT NM Pulmonary Perfusion [id number] CASH w/ Vent Aerosol CPT code 17495 A9567 Reason For Exam (NM Pulmonary Perfusion [...] Date and Time: 10/21/2021 8:49 [facility] Work Phone: NM LUNG VENT/PERFUSION (VQ)O rdered By: Henry Harvey on 10-21-2021 [facility] Work Phone: NM Pulmonary Perfusion w/ Ve nt Aerosol or Gason 10-21-2021 NM Pulmonary Perfusion w/ Vent Aerosol or Gas Patient Name: ANDREW SIFUENTES Nuclear Medicine ACCESSION EXAM DATE/TIME PROCEDURE ORDERING PROVIDER [id number] 10/21/2021 07:55 EDT NM Pulmonary Perfusion [id number] MAY BOGGS w/ Vent Aerosol CPT code 93806 A9567 Reason For Exam (NM Pulmonary Perfusion [...] Transcribed Date and Time: 10/21/2021 8:49 Normal [facility] No Panel Informationon 10-21 Radiology Study observation (narrative) [facility] Work Phone: Prothrombin Timeon 2 INR 1.1 Normal 0.9-1.1 [facility] Comment on above: Result Comment: [...] Infarction Performed By: #### C OVAG #### [facility] [address] [place] [address] PT Coag (PPP) [Time] 11.5 s Normal 9.0-12.0 [facility] Comment on above: Result Comment: . Performed By: #### C OVAG #### [facility] [address] [place] [address] Protime-INRon 10-21-2021 INR Coag (Bld) [Relative time] 1.1 {INR} [facility] Comment on above: Recommended Anticoag ulant [...] [Time] 11.5 s 9.0 - 12.0 s [facility] Comment on above: . Test Performed by [facility], [address] [facility] Retic Count(%)on 10-21-2021 Retic Count(%) 1.6 Normal [facility] Comment on above: Result Comment: [place] < 5% Adults 0.5 - 1.5% Performed By: #### P T #### [facility] [address] [place] [address] Reticulocyteson 10-21-[address] Pct 1.6 [facility] Comment on above: [place] < 5% Adults 0.5 - 1.5% Test Performed by [facility], [address] [facility] Sed Rateon 10-21-2021 Sed Rate 63 mm/h High 0-10 [facility] Comment on above: Performed By: #### P T #### [facility] [address] [place] [address] Sedimentation Rateon 022 Interpretation and review of laboratory results Abnormal [facility] Sed Rate 63 mm/h High 0 - 10 mm/h [facility] Test Performed by [facility], [address] [place], [place] [address] [facility] VL CARMELLA Upr/L Extremity Art 1 -2 Levelson 10-21-2021 VL CARMELLA Upr/L Extremity Art 1-2 Levels Patient Name: ANDREW SIFUENTES Ultrasound ACCESSION EXAM DATE/TIME PROCEDURE ORDERING PROVIDER [id number] 10/21/2021 16:12 EDT VL Upr/L Extremity Art 052166 -SHRUTHI MALIK 1-2 Levels CPT code 32858 Reason For Exam (VL Upr/L Extremity Art 1-2 Levels) both lower legs CARMELLA for both feet wounds. Report [facility] Ankle Brachial Index Report Patient Gurpreet : 1950 Study 10/21/2021 Name: Andrew Gonzalez (71yrs) Date: Age: 71 Account: [id number] Gender: M Loc: 444W BP: Ordering Physician: Shruthi Malik Timber Management Specialist: Rody Cross RDMS, RVT Interpreting Physician: Carina Call Location: [facility] Indications: Foot wounds. Originally ordered as a full PVR. Ordering DRAFTER CARTOGRAPHIC had to modify the order to ABIs [...] supine position. Images were obtained using a [employer] vascular ultrasound machine. Arterial pressure indices: + [...] CARINA HENNESSY Cardiovascular ACCESSION EXAM DATE/TIME PROCEDURE [id number] 10/21/2021 16:12 EDT VL Upr/L Extremity Art 1-2 Levels CPT code 74536 Reason For Exam (VL Upr/L Extremity Art 1-2 Levels) both lower legs CARMELLA for both feet wounds. Report [facility] Ankle Brachial Index Report Patient DO GurpreetB: 1950 Study 10/21/2021 Name: Andrew Gonzalez (71yrs) Date: Age: 71 Account: [id number] Cardiovascular Report Gender: M Loc: 444W BP: Ordering Physician: Shruthi Malik Timber Management Specialist: Rody Cross RDMS, RVT Interpreting Physician: Carina Call Location: [facility] Indications: Foot wounds. Originally ordered as a full PVR. Ordering DRAFTER CARTOGRAPHIC had to modify the order to ABIs [...] in th (more content not included)... Normal [facility] VL LOWER EXTREMITY BILATERAL VENOUS DUPLEXon 10-21-2021 [facility] Lower Extremity Venous Duplex Report Patient DO GurpreetB: 1950 Study 10/21/2021 Name: Andrew Gonzalez (71yrs) Date: Age: 71 Account: [id number] Gender: M Loc: 444 BP: Ordering Physician: May Cash Timber Management Specialist: Rody Cross RDMS, RVT Interpreting Physician: Carina [...] supine position. Images were obtained using a [employer] vascular ultrasound machine. Venous flow and imaging: [...] +-------- --------+ + (more content not included)... [facility] Carina Call MD - 10/21/2021 [facility] Lower Extremity Venous Duplex Report Patient DO GurpreetB: 1950 Study 10/21/2021 Name: Andrew Gonzalez (71yrs) Date: Age: 71 Account: [id number] Gender: M Loc: 444 BP: Ordering Physician: May Cash Timber Management Specialist: Rody Cross RDMS, RVT Interpreting Physician: Carina aCll Location: [facility] Indications: Bilateral lower [...] supine position. Images were obtained using a [employer] vascular ultrasound machine. Venous flow and imaging: [...] + + +----- (more content not included)... [employer] Work Phone: VL LOWER EXTREMITY BILATERAL VENOUS DUPLEXOrdered By: Carina Call on 10-21-2021 [employer] Work Phone: VL Venous Duplex US Lower Ex t Bilateralon 10-21-2021 VL Venous Duplex US Lower Ext Bilateral Patient Name: ANDREW SIFUENTES Ultrasound ACCESSION EXAM DATE/TIME PROCEDURE ORDERING PROVIDER [id number] 10/21/2021 09:53 EDT VL Venous Duplex [place] [id number] -MAY CASH Lower Ext Bilateral CPT code 27411 Reason For Exam (VL Venous Duplex US Lower Ext Bilateral) bilateral sqwelling redness Report [facility] Lower Extremity Venous Duplex Report Patient DO GurpreetB: 1950 Study 10/21/2021 Name: Andrew Gonzalez (71yrs) Date: Age: 71 Account: [id number] Gender: M Loc: 444 BP: Ordering Physician: May Cash Timber Management Specialist: Rody Cross RDMS, RVT Interpreting Physician: Carina [...] supine position. Images were obtained using a [employer] vascular ultrasound machine. Venous flow and imaging: [...] + + (more content not included)... [facility] CALCANEUS LEFT (MIN 2 VIE WS)on 10-21-2021 Patient Name: ANDREW SIFUENTES Diagnostic Radiology ACCESSION EXAM DATE/TIME PROCEDURE ORDERING PROVIDER [id number] 10/21/2021 15:30 EDT CR Calcaneus 2+ Views [id number] -SHRUTHI MALIK Left CPT code 47069 Reason For Exam (CR Calcaneus 2+ Views [...] MD - 10/21/2021 Patient Name: [id number] Radiology ACCESSION EXAM DATE/TIME PROCEDURE ORDERING PROVIDER [id number] 10/21/2021 15:30 EDT CR Calcaneus 2+ Views [id number] -SHRUTHI MALIK Left CPT code 58179 Reason For Exam (CR Calcaneus 2+ Views [...] Radiology ACCESSION EXAM DATE/TIME PROCEDURE ORDERING PROVIDER [id number] 10/21/2021 08:16 EDT CR Chest 1 View Frontal [id number] FOSTER CPT code 12153 Reason For Exam (CR Chest 1 View [...] OSAMA Transcribed Date and Time: 10/21/2021 8:33 [facility] Venus Loyd MD - 10/21/2021 Patient Name: ANDREW SIFUENTES Diagnostic Radiology ACCESSION EXAM DATE/TIME PROCEDURE ORDERING PROVIDER [id number] 10/21/2021 08:16 EDT CR Chest 1 View Frontal [id number] CONTI CPT code 97699 Reason For Exam (CR Chest 1 View [...] Transcribed Date and Time: 10/21/[facility]21 [facility]: XR Chest 1 VWOrdered By: Natalie Loyd on 10-21-2021 [facility] Work Phone: Basophil percentageon 2021 Chloride [Moles/Vol] 108 mmol/L 98-107 [facility] Work Phone: [phone] Glucose [Mass/Vol] 93 mg/dL 74-106 [facility] Work Phone: Potassium [Moles/Vol] 3.9 mmol/L 3.5-5.1 [facility] Work Phone: Sodium [Moles/Vol] 140 mmol/L 136-145 [facility] Work Phone: WBC (Bld) [#/Vol] 8.7 10*3/uL 4.4-11.0 [facility] Work Phone: [phone] Blood erythrocytes count (nu mber/volume)on 10-20-2021 RBC (Bld) [#/Vol] 3.63 10*6/uL 4.6-6.2 [facility] Work Phone: Blood hemoglobin measurement (mass/volume)on 10-20-2021 Hemoglobin (Bld) [Mass/Vol] 10.1 g/dL 13.0-16.5 [facility] Work Phone: [phone] Blood platelet mean volumeon 10-20-2021 Platelet mean volume (Bld) [Entitic vol] 9.8 fL 6.2-12.0 [facility] Work Phone: Determination of erythrocyte mean corpuscular volume (MCV)on 10-20-2021 MCV (RBC) [Entitic vol] 90.1 fL 80-94 [facility] Work Phone: Hematocrit Auto (Bld) [Volum e fraction]on 10-20-2021 Hematocrit (Bld) [Volume fraction] 32.7 % 40-54 [facility] Work Phone: Laboratory - Chemistry and C hemistry - challengeon 10-20-2021 CO2 [Moles/Vol] 25.0 mmol/L 21.0-32.0 [facility] Work Phone: Urea nitrogen/Creatinine [Mass ratio] 17.4 mg/mg 10-20 [facility] Work Phone: Laboratory - Hematology and Cell countson 10-20-2021 Erythrocyte distribution width (RBC) [Entitic vol] 52.1 fL 35.1-43.9 [facility] Work Phone: Erythrocyte distribution width (RBC) [Ratio] 15.6 % 11.6-14.6 [facility] Work Phone: MCH (RBC) [Entitic mass] 27.8 pg 27.0-32.0 [facility] Work Phone: MCHC Auto (RBC) [Mass/Vol]on 10-20-2021 MCHC (RBC) [Mass/Vol] 30.9 g/dL 32-36 [facility] Work Phone: No Panel Informationon 10-20 Estimated GFR (MDRD) Amer 133 mL/min >60 [facility] Work Phone: Comment on above: GFR Calc Estimated GFR (MDRD) Non-Af Amer 110 mL/min >60 [facility] Work Phone: Comment on above: Non- GFR Calc Platelets bldon 10-20-2021 Platelets (Bld) [#/Vol] 404 10*3/uL 150-450 [facility] Work Phone: Serum or plasma calcium oral urement (mass/volume)on 10-20-2021 Calcium [Mass/Vol] 9.1 mg/dL 8.5-10.1 [facility] Work Phone: Serum or plasma creatinine m easurement (mass/volume)on 10-20-2021 Creatinine [Mass/Vol] 0.75 mg/dL 0.70-1.30 [facility] Work Phone: Comment on above: The validity of the calculated GFR & GFRAA in patients over 70 years has not been determined. Clinical correlation is essential. Serum or plasma urea nitroge n measurement (mass/volume)on 10-20-2021 Urea nitrogen [Mass/Vol] 13 mg/dL 7-18 [facility] Work Phone: Thin prep Papanicolaou smear with manual screeningon 10-20-2021 Thin prep Papanicolaou smear with manual screening 7 5-15 [facility] Work Phone: CNPNon 10-17-2021 CNPN Normal [facility] Absolute lymphocyte counton 09-19-2021 Lymphocytes Auto (Unsp spec) [#/Vol] 1.74 10*3/uL 0.83-4.51 [facility] Work Phone: Basophil percentageon 2021 Basophils/100 WBC (Bld) 0.6 % 0-1 [facility] Work Phone: Bilirubin [Mass/Vol] 0.30 mg/dL 0.20-1.00 [facility] Work Phone: Comment on above: For patients on eltr ombopag therapy, use of Dimension [place] TBIL is not recommended. Chloride [Moles/Vol] 105 mmol/L 98-107 [facility] Work Phone: Eosinophils/100 WBC (Bld) 3.5 % 0-5 [facility] Work Phone: Glucose [Mass/Vol] 91 mg/dL 74-106 [facility] Work Phone: Neutrophils (Bld) [#/Vol] 4.2 10*3/uL 2.0-7.7 [facility] Work Phone: Neutrophils/100 WBC (Bld) 62.6 % 47-70 [facility] Work Phone: [phone] Potassium [Moles/Vol] 3.8 mmol/L 3.5-5.1 [facility] Work Phone: [phone] Protein [Mass/Vol] 6.3 g/dL 6.4-8.2 [facility] Work Phone: [phone] Sodium [Moles/Vol] 139 mmol/L 136-145 [facility] Work Phone: WBC (Bld) [#/Vol] 6.6 10*3/uL 4.4-11.0 [facility] Work Phone: [phone] Blood erythrocytes count (nu mber/volume)on 09-19-2021 RBC (Bld) [#/Vol] 3.47 10*6/uL 4.6-6.2 [facility] Work Phone: [phone] Blood hemoglobin measurement (mass/volume)on 09-19-2021 Hemoglobin (Bld) [Mass/Vol] 10.2 g/dL 13.0-16.5 [facility] Work Phone: Blood lymphocytes/100 leukoc yteson 09-19-2021 Lymphocytes/100 WBC (Bld) 26.2 % 19-41 [facility] Work Phone: Blood monocytes/100 leukocyt eson 09-19-2021 Monocytes/100 WBC (Bld) 6.5 % 0-10 [facility] Work Phone: Blood platelet mean volumeon 09-19-2021 Platelet mean volume (Bld) [Entitic vol] 9.6 fL 6.2-12.0 [facility] Work Phone: Determination of erythrocyte mean corpuscular volume (MCV)on 09-19-2021 MCV (RBC) [Entitic vol] 94.8 fL 80-94 [facility] Work Phone: Hematocrit Auto (Bld) [Volum e fraction]on 09-19-2021 Hematocrit (Bld) [Volume fraction] 32.9 % 40-54 [facility] Work Phone: Laboratory - Chemistry and C hemistry - challengeon 09-19-2021 ALP [Catalytic activity/Vol] 109 U/L 45-117 [facility] Work Phone: ALT [Catalytic activity/Vol] 23 U/L 16-61 [facility] Work Phone: CO2 [Moles/Vol] 26.0 mmol/L 21.0-32.0 [facility] Work Phone: Globulin (S) [Mass/Vol] 3.5 g/dL 2.2-4.2 [facility] Work Phone: Urea nitrogen/Creatinine [Mass ratio] 15.3 mg/mg 10-20 [facility] Work Phone: Laboratory - Hematology and Cell countson 09-19-2021 Erythrocyte distribution width (RBC) [Entitic vol] 59.4 fL 35.1-43.9 [facility] Work Phone: Erythrocyte distribution width (RBC) [Ratio] 17.1 % 11.6-14.6 [facility] Work Phone: Immature granulocytes/100 WBC (Bld) 0.600 % 0.0-0.9 [facility] Work Phone: Comment on above: IG% - Immature Granu locytes (promyelocytes, myelocytes and metamyelocytes) > 1% indicates that a LEFT SHIFT is Present. MCH (RBC) [Entitic mass] 29.4 pg 27.0-32.0 [facility] Work Phone: Nucleated RBC/100 WBC (Bld) [Ratio] 0 % 0-5 [facility] Work Phone: MCHC Auto (RBC) [Mass/Vol]on 09-19-2021 MCHC (RBC) [Mass/Vol] 31.0 g/dL 32-36 [facility] Work Phone: No Panel Informationon 09-19 Estimated GFR (MDRD) Amer 175 mL/min >60 [facility] Work Phone: Comment on above: GFR Calc Estimated GFR (MDRD) Non-Af Amer 145 mL/min >60 [facility] Work Phone: Comment on above: Non- GFR Calc Platelets bldon 09-19-2021 Platelets (Bld) [#/Vol] 342 10*3/uL 150-450 [facility] Work Phone: Serum or plasma albumin oral urement (mass/volume)on 09-19-2021 Albumin [Mass/Vol] 2.8 g/dL 3.2-5.0 [facility] Work Phone: Serum or plasma albumin/glob ulin mass ratioon 09-19-2021 Albumin/Globulin [Mass ratio] 0.8 {ratio} 0.9-2.4 [facility] Work Phone: Serum or plasma calcium oral urement (mass/volume)on 09-19-2021 Calcium [Mass/Vol] 9.0 mg/dL 8.5-10.1 [facility] Work Phone: Serum or plasma creatinine m easurement (mass/volume)on 09-19-2021 Creatinine [Mass/Vol] 0.59 mg/dL 0.70-1.30 [facility] Work Phone: Comment on above: The validity of the calculated GFR & GFRAA in patients over 70 years has not been determined. Clinical correlation is essential. Serum or plasma urea nitroge n measurement (mass/volume)on 09-19-2021 Urea nitrogen [Mass/Vol] 9 mg/dL 7-18 [facility] Work Phone: Thin prep Papanicolaou smear with manual screeningon 09-19-2021 Thin prep Papanicolaou smear with manual screening 12 U/L 15-37 [facility] Work Phone: Thin prep Papanicolaou smear with manual screening 8 5-15 [facility] Work Phone: OPERATIVE NOon 08-22-2021 OPERATIVE NO Normal [facility] Basic metabolic 2000 panelon 08-19-2021 Anion gap [Moles/Vol] 10 mmol/L Normal 9-18 [facility] Comment on above: Order Comment: Speci men Type: BLOOD SPECIMENOrdering Facility: [facility] Address: [address] [place] [address] Performed By: #### 2 4321-2 ####[facility] LABORATORYCLIA [id number] [place] [address] [place] Calcium [Mass/Vol] 8.6 mg/dL Normal 8.5-10.2 [facility] Comment on above: Order Comment: Speci men Type: BLOOD SPECIMENOrdering Facility: [facility] Address: [address] [place] [address] Performed By: #### 2 4321-2 ####[facility] LABORATORYCLIA [id number] [place] [address] [place] Chloride [Moles/Vol] 99 mmol/L Normal 97-105 [facility] Comment on above: Order Comment: Speci men Type: BLOOD SPECIMENOrdering Facility: [facility] Address: [address] [place] [address] Performed By: #### 2 4321-2 ####[facility]ORATORYCLIA [id number] [place] [address] [place] CO2 [Moles/Vol] 29 mmol/L Normal 22-30 [facility] Comment on above: Order Comment: Speci men Type: BLOOD SPECIMENOrdering Facility: [facility] Address: [address] [place] [address] Performed By: #### 2 4321-2 ####[facility] LABORATORYCLIA [id number] [place] [address] [place] Creatinine [Mass/Vol] 0.58 mg/dL Low 0.73-1.22 [facility] Comment on above: Order Comment: Speci men Type: BLOOD SPECIMENOrdering Facility: [facility] Address: [address] [place] [address] Performed By: #### 2 4321-2 ####[facility]ORATORYCLIA [id number] [place] [address] [place] ESTIMATED GLOMERULAR FILTRATION RATE 106 mL/min/1.73m??? Normal >=60 [facility] Comment on above: Order Comment: Shira feldman Type: BLOOD SPECIMENOrdering Facility: [facility] Address: [address] [place] [address] Result Comment: Luzmaria mated Glomerular Filtration Rate [...] actual GFR. Performed By: #### 2 4321-2 ####[facility] HOSPITALIA [id number] [place] [address] [place] Glucose [Mass/Vol] 101 mg/dL High 74-99 [facility] Comment on above: Order Comment: Shira feldman Type: BLOOD SPECIMENOrdering Facility: [facility] Address: [address] [place] [address] Result Comment: The [place] [employer] (ADA) provides guidance for cutoff [...] Standards of Medical Care in Diabetes 2016, [place] [employer]. Diabetes Care. 2016.39(Suppl 1). Performed By: #### 2 4321-2 ####[facility] LABORATORYCLIA [id number] [place] [id number] [place] Potassium [Moles/Vol] 3.5 mmol/L Low 3.7-5.1 [facility] Comment on above: Order Comment: Speci men Type: BLOOD SPECIMENOrdering Facility: [facility] Address: [address] [place] [address] Performed By: #### 2 4321-2 ####[facility] LABORATORYCLIA [id number] [address] STATES OF [facility] Sodium [Moles/Vol] 138 mmol/L Normal 136-144 [facility] Comment on above: Order Comment: Speci men Type: BLOOD SPECIMENOrdering Facility: [facility] Address: [address] [place] [address] Performed By: #### 2 4321-2 ####[facility] LABORATORYCLIA [id number] [address] STATES OF [facility] Urea nitrogen [Mass/Vol] 11 mg/dL Normal 9-24 [facility] Comment on above: Order Comment: Speci men Type: BLOOD SPECIMENOrdering Facility: [facility] Address: [address] [place] [address] Performed By: #### 2 4321-2 ####[facility] LABORATORYCLIA [id number] [address] STATES OF [facility] CASE MANAGEMon 08-19-2021 CASE MANAGEM Normal [facility] CBC W Auto Differential pane l (Bld)on 08-19-2021 Basophils (Bld) [#/Vol] 0.03 10*3/uL Normal <0.11 [facility] Comment on above: Order Comment: Speci men Type: BLOOD SPECIMENOrdering Facility: [facility] Address: [address] [place] [address] Performed By: #### 5 7021-8 ####[facility] LABORATORYCLIA [id number] [address] STATES [facility] Basophils/100 WBC (Bld) 0.4 % Normal [facility] Comment on above: Order Comment: Speci men Type: BLOOD SPECIMENOrdering Facility: [facility] Address: [address] [place] [address] Performed By: #### 5 7021-8 ####[facility]ORATORYCLIA [id number] [address] Differential cell count method Nom (Bld) Auto Normal [facility] Comment on above: Order Comment: Speci men Type: BLOOD SPECIMENOrdering Facility: [facility] Address: [address] [place] [address] Performed By: #### 5 7021-8 ####[facility]ORATORYCLIA [id number] [address] Eosinophils (Bld) [#/Vol] 0.24 10*3/uL Normal <0.46 [facility] Comment on above: Order Comment: Speci men Type: BLOOD SPECIMENOrdering Facility: [facility] Address: [address] [place] [address] Performed By: #### 5 7021-8 ####[facility] LABORATORYCLIA [id number] [address] Eosinophils/100 WBC (Bld) 3.1 % Normal [facility] Comment on above: Order Comment: Speci men Type: BLOOD SPECIMENOrdering Facility: [facility] Address: [address] [place] [address] Performed By: #### 5 7021-8 ####[facility] LABORATORYCLIA [id number] [address] Erythrocyte distribution width (RBC) [Ratio] 17.5 % High 11.5-15.0 [facility] Comment on above: Order Comment: Speci men Type: BLOOD SPECIMENOrdering Facility: [facility] Address: [address] [place] [address] Performed By: #### 5 7021-8 ####[facility] LABORATORYCLIA [id number] [address] Hematocrit (Bld) [Volume fraction] 30.2 % Low 39.0-51.0 [facility] Comment on above: Order Comment: Speci men Type: BLOOD SPECIMENOrdering Facility: [facility] Address: [address] [place] [address] Performed By: #### 5 7021-8 ####[facility]ORATORYCLIA [id number] [address] Hemoglobin (Bld) [Mass/Vol] 9.6 g/dL Low 13.0-17.0 [facility] Comment on above: Order Comment: Speci men Type: BLOOD SPECIMENOrdering Facility: [facility] Address: [address] [place] [address] Performed By: #### 5 7021-8 ####[facility] LABORATORYCLIA [id number] [address] IMMATURE GRAN % 0.4 % Normal [facility] Comment on above: Order Comment: Speci men Type: BLOOD SPECIMENOrdering Facility: [facility] Address: [address] [place] [address] Performed By: #### 5 7021-8 ####[facility] LABORATORYCLIA [id number] [address] IMMATURE GRAN ABS 0.03 k/uL Normal <0.10 [facility] Comment on above: Order Comment: Speci men Type: BLOOD SPECIMENOrdering Facility: [facility] Address: [address] [place] [address] Performed By: #### 5 7021-8 ####[facility] LABORATORYCLIA [id number] [address] [place] Lymphocytes (Bld) [#/Vol] 1.71 10*3/uL Normal 1.00-4.00 [facility] Comment on above: Order Comment: Speci men Type: BLOOD SPECIMENOrdering Facility: [facility] Address: [address] [place] [address] Performed By: #### 5 7021-8 ####[facility]ORATORYCLIA [id number] [address] Lymphocytes/100 WBC (Bld) 22.2 % Normal [facility] Comment on above: Order Comment: Speci men Type: BLOOD SPECIMENOrdering Facility: [facility] Address: [address] [place] [address] Performed By: #### 5 7021-8 ####[facility] LABORATORYCLIA [id number] [address] MCH (RBC) [Entitic mass] 29.4 pg Normal 26.0-34.0 [facility] Comment on above: Order Comment: Speci men Type: BLOOD SPECIMENOrdering Facility: [facility] Address: [address] [place] [address] Performed By: #### 5 7021-8 ####[facility] LABORATORYCLIA [id number] [address] [facility] MCHC (RBC) [Mass/Vol] 31.8 g/dL Normal 30.5-36.0 [facility] Comment on above: Order Comment: Speci men Type: BLOOD SPECIMENOrdering Facility: [facility] Address: [address] [place] [address] Performed By: #### 5 7021-8 ####[facility] LABORATORYCLIA [id number] [address] MCV (RBC) [Entitic vol] 92.6 fL Normal 80.0-100.0 [facility] Comment on above: Order Comment: Speci men Type: BLOOD SPECIMENOrdering Facility: [facility] Address: [address] [place] [address] Performed By: #### 5 7021-8 ####[facility] LABORATORYCLIA [id number] [address] Monocytes (Bld) [#/Vol] 0.50 10*3/uL Normal <0.87 [facility] Comment on above: Order Comment: Speci men Type: BLOOD SPECIMENOrdering Facility: [facility] Address: [address] [place] [address] Performed By: #### 5 7021-8 ####[facility] LABORATORYCLIA [id number] [place] [address] [place] Monocytes/100 WBC (Bld) 6.5 % Normal [facility] Comment on above: Order Comment: Speci men Type: BLOOD SPECIMENOrdering Facility: [facility] Address: [address] [place] [address] Performed By: #### 5 7021-8 ####[facility]ORATORYCLIA [id number] [place] [address] [place] Neutrophils (Bld) [#/Vol] 5.20 10*3/uL Normal 1.45-7.50 [facility] Comment on above: Order Comment: Speci men Type: BLOOD SPECIMENOrdering Facility: [facility] Address: [address] [place] [address] Performed By: #### 5 7021-8 ####[facility] LABORATORYCLIA [id number] [address] [place] Neutrophils/100 WBC (Bld) 67.4 % Normal [facility] Comment on above: Order Comment: Speci men Type: BLOOD SPECIMENOrdering Facility: [facility] Address: [address] [place] [address] Performed By: #### 5 7021-8 ####[facility]ORATORYCLIA [id number] [place] [address] [place] Nucleated RBC (Bld) [#/Vol] 10*3/uL Normal <0.01 [facility] Comment on above: Order Comment: Speci men Type: BLOOD SPECIMENOrdering Facility: [facility] Address: [address] [place] [address] Performed By: #### 5 7021-8 ####[facility] LABORATORYCLIA [id number] [place] [address] [place] Nucleated RBC/100 WBC (Bld) [Ratio] 0.0 /100 WBC Normal [facility] Comment on above: Order Comment: Speci men Type: BLOOD SPECIMENOrdering Facility: [facility] Address: [address] [place] [address] Performed By: #### 5 7021-8 ####[facility] LABORATORYCLIA [id number] [address] Platelet mean volume (Bld) [Entitic vol] 8.9 fL Low 9.0-12.7 [facility] Comment on above: Order Comment: Speci men Type: BLOOD SPECIMENOrdering Facility: [facility] Address: [address] [place] [address] Performed By: #### 5 7021-8 ####[facility] LABORATORYCLIA [id number] [address] [place] Platelets (Bld) [#/Vol] 408 10*3/uL High 150-400 [facility] Comment on above: Order Comment: Speci men Type: BLOOD SPECIMENOrdering Facility: [facility] Address: [address] [place] [address] Performed By: #### 5 7021-8 ####[facility] LABORATORYCLIA [id number] [address] [place] RBC (Bld) [#/Vol] 3.26 10*6/uL Low 4.20-6.00 [facility] Comment on above: Order Comment: Speci men Type: BLOOD SPECIMENOrdering Facility: [facility] Address: [address] [place] [address] Performed By: #### 5 7021-8 ####[facility]ORATORYCLIA [id number] [address] [place] WBC (Bld) [#/Vol] 7.71 10*3/uL Normal 3.70-11.00 [facility] Comment on above: Order Comment: Speci men Type: BLOOD SPECIMENOrdering Facility: [facility] Address: [address] [place] [address] Performed By: #### 5 7021-8 ####[facility] LABORATORYCLIA [id number] [address] [place] CNDSon 08-19-2021 CNDS Normal [facility] CONSULT PROGon 08-19-2021 CONSULT PROG Normal [facility] THERAPY NTon 08-19-2021 THERAPY NT Normal [facility] Basic metabolic 2000 panelon 08-18-2021 Anion gap [Moles/Vol] 11 mmol/L Normal 9-18 [facility] Comment on above: Order Comment: Speci men Type: BLOOD SPECIMENOrdering Facility: [facility] Address: [address] [place] [address] Performed By: #### 2 4321-2 ####[facility] LABORATORYCLIA [id number] [place] [address] [place] Calcium [Mass/Vol] 8.6 mg/dL Normal 8.5-10.2 [facility] Comment on above: Order Comment: Speci men Type: BLOOD SPECIMENOrdering Facility: [facility] Address: [address] [place] [address] Performed By: #### 2 4321-2 ####[facility] LABORATORYCLIA [id number] [place] [address] [place] Chloride [Moles/Vol] 98 mmol/L Normal 97-105 [facility] Comment on above: Order Comment: Speci men Type: BLOOD SPECIMENOrdering Facility: [facility] Address: [address] [place] [address] Performed By: #### 2 4321-2 ####[facility] LABORATORYCLIA [id number] [place] [address] [place] CO2 [Moles/Vol] 28 mmol/L Normal 22-30 [facility] Comment on above: Order Comment: Speci men Type: BLOOD SPECIMENOrdering Facility: [facility] Address: [address] [place] [address] Performed By: #### 2 4321-2 ####[facility] LABORATORYCLIA [id number] [place] [address] [place] Creatinine [Mass/Vol] 0.56 mg/dL Low 0.73-1.22 [facility] Comment on above: Order Comment: Speci men Type: BLOOD SPECIMENOrdering Facility: [facility] Address: [address] [place] [address] Performed By: #### 2 4321-2 ####[facility]ITALIA [id number] [address] ESTIMATED GLOMERULAR FILTRATION RATE 107 mL/min/1.73m??? Normal >=60 [facility] Comment on above: Order Comment: Shira francia Type: BLOOD SPECIMENOrdering Facility: [facility] Address: [address] [place] [address] Result Comment: Luzmaria mated Glomerular Filtration Rate [...] actual GFR. Performed By: #### 2 4321-2 ####[facility]OSPITALIA [id number] [place] [address] [place] Glucose [Mass/Vol] 113 mg/dL High 74-99 [facility] Comment on above: Order Comment: Johncara feldman Type: BLOOD SPECIMENOrdering Facility: [facility] Address: [address] [place] [address] Result Comment: The [place] [employer] (ADA) provides guidance for cutoff [...] Standards of Medical Care in Diabetes 2016, [place] [employer]. Diabetes Care. 2016.39(Suppl 1). Performed By: #### 2 4321-2 ####[facility] LABORATORYCLIA [id number] [place] [address] [place] Potassium [Moles/Vol] 3.5 mmol/L Low 3.7-5.1 [facility] Comment on above: Order Comment: Speci men Type: BLOOD SPECIMENOrdering Facility: [facility] Address: [address] [place] [address] Performed By: #### 2 4321-2 ####[facility] LABORATORYCLIA [id number] [address] [place] Sodium [Moles/Vol] 137 mmol/L Normal 136-144 [facility] Comment on above: Order Comment: Speci men Type: BLOOD SPECIMENOrdering Facility: [facility] Address: [address] [place] [address] Performed By: #### 2 4321-2 ####[facility] LABORATORYCLIA [id number] [address] [place] [facility] Urea nitrogen [Mass/Vol] 10 mg/dL Normal 9-24 [facility] Comment on above: Order Comment: Speci men Type: BLOOD SPECIMENOrdering Facility: [facility] Address: [address] [place] [address] Performed By: #### 2 4321-2 ####[facility] LABORATORYCLIA [id number] [address] [place] CBC W Auto Differential pane l (Bld)on 08-18-2021 Basophils (Bld) [#/Vol] 10*3/uL Normal <0.11 [facility] Comment on above: Order Comment: Speci men Type: BLOOD SPECIMENOrdering Facility: [facility] Address: [address] [place] [address] Performed By: #### 5 7021-8 ####[facility] LABORATORYCLIA [id number] [address] [place] Basophils/100 WBC (Bld) 0.3 % Normal [facility] Comment on above: Order Comment: Speci men Type: BLOOD SPECIMENOrdering Facility: [facility] Address: [address] [address] Performed By: #### 5 7021-8 ####[facility] LABORATORYCLIA [id number] [address] Differential cell count method Nom (Bld) Auto Normal [facility] Comment on above: Order Comment: Speci men Type: BLOOD SPECIMENOrdering Facility: [facility] Address: [address] [place] [address] Performed By: #### 5 7021-8 ####[facility] LABORATORYCLIA [id number] [address] [place] Eosinophils (Bld) [#/Vol] 0.37 10*3/uL Normal <0.46 [facility] Comment on above: Order Comment: Speci men Type: BLOOD SPECIMENOrdering Facility: [facility] Address: [address] [place] [address] Performed By: #### 5 7021-8 ####[facility] LABORATORYCLIA [id number] [address] Eosinophils/100 WBC (Bld) 4.8 % Normal [facility] Comment on above: Order Comment: Speci men Type: BLOOD SPECIMENOrdering Facility: [facility] Address: [address] [place] [address] Performed By: #### 5 7021-8 ####[facility] LABORATORYCLIA [id number] [address] Erythrocyte distribution width (RBC) [Ratio] 17.5 % High 11.5-15.0 [facility] Comment on above: Order Comment: Speci men Type: BLOOD SPECIMENOrdering Facility: [facility] Address: [address] [place] [address] Performed By: #### 5 7021-8 ####[facility] LABORATORYCLIA [id number] [address] [place] Hematocrit (Bld) [Volume fraction] 30.2 % Low 39.0-51.0 [facility] Comment on above: Order Comment: Speci men Type: BLOOD SPECIMENOrdering Facility: [facility] Address: [address] [place] [address] Performed By: #### 5 7021-8 ####[facility] LABORATORYCLIA [id number] [address] OF [facility] Hemoglobin (Bld) [Mass/Vol] 9.5 g/dL Low 13.0-17.0 [facility] Comment on above: Order Comment: Speci men Type: BLOOD SPECIMENOrdering Facility: [facility] Address: [address] [place] [address] Performed By: #### 5 7021-8 ####[facility] LABORATORYCLIA [id number] [address] IMMATURE GRAN % 0.4 % Normal [facility] Comment on above: Order Comment: Speci men Type: BLOOD SPECIMENOrdering Facility: [facility] Address: [address] [place] [address] Performed By: #### 5 7021-8 ####[facility] LABORATORYCLIA [id number] [address] IMMATURE GRAN ABS 0.03 k/uL Normal <0.10 [facility] Comment on above: Order Comment: Speci men Type: BLOOD SPECIMENOrdering Facility: [facility] Address: [address] [place] [address] Performed By: #### 5 7021-8 ####[facility] LABORATORYCLIA [id number] [address] [place] Lymphocytes (Bld) [#/Vol] 1.85 10*3/uL Normal 1.00-4.00 [facility] Comment on above: Order Comment: Speci men Type: BLOOD SPECIMENOrdering Facility: [facility] Address: [address] [place] [address] Performed By: #### 5 7021-8 ####[facility] LABORATORYCLIA [id number] [address] Lymphocytes/100 WBC (Bld) 23.8 % Normal [facility] Comment on above: Order Comment: Speci men Type: BLOOD SPECIMENOrdering Facility: [facility] Address: [address] [place] [address] Performed By: #### 5 7021-8 ####[facility] LABORATORYCLIA [id number] [address] MCH (RBC) [Entitic mass] 29.5 pg Normal 26.0-34.0 [facility] Comment on above: Order Comment: Speci men Type: BLOOD SPECIMENOrdering Facility: [facility] Address: [address] [place] [address] Performed By: #### 5 7021-8 ####[facility] LABORATORYCLIA [id number] [address] MCHC (RBC) [Mass/Vol] 31.5 g/dL Normal 30.5-36.0 [facility] Comment on above: Order Comment: Speci men Type: BLOOD SPECIMENOrdering Facility: [facility] Address: [address] [place] [address] Performed By: #### 5 7021-8 ####[facility]ORATORYCLIA [id number] [address] MCV (RBC) [Entitic vol] 93.8 fL Normal 80.0-100.0 [facility] Comment on above: Order Comment: Speci men Type: BLOOD SPECIMENOrdering Facility: [facility] Address: [address] [place] [address] Performed By: #### 5 7021-8 ####[facility] LABORATORYCLIA [id number] [address] Monocytes (Bld) [#/Vol] 0.49 10*3/uL Normal <0.87 [facility] Comment on above: Order Comment: Speci men Type: BLOOD SPECIMENOrdering Facility: [facility] Address: [address] [place] [address] Performed By: #### 5 7021-8 ####[facility]ORATORYCLIA [id number] [address] [place] Monocytes/100 WBC (Bld) 6.3 % Normal [facility] Comment on above: Order Comment: Speci men Type: BLOOD SPECIMENOrdering Facility: [facility] Address: [address] [place] [address] Performed By: #### 5 7021-8 ####[facility]ORATORYCLIA [id number] [place] [address] [place] Neutrophils (Bld) [#/Vol] 5.00 10*3/uL Normal 1.45-7.50 [facility] Comment on above: Order Comment: Speci men Type: BLOOD SPECIMENOrdering Facility: [facility] Address: [address] [place] [address] Performed By: #### 5 7021-8 ####[facility]ORATORYCLIA [id number] [address] Neutrophils/100 WBC (Bld) 64.4 % Normal [facility] Comment on above: Order Comment: Speci men Type: BLOOD SPECIMENOrdering Facility: [facility] Address: [address] [place] [address] Performed By: #### 5 7021-8 ####[facility]ORATORYCLIA [id number] [address] [place] Nucleated RBC (Bld) [#/Vol] 10*3/uL Normal <0.01 [facility] Comment on above: Order Comment: Speci men Type: BLOOD SPECIMENOrdering Facility: [facility] Address: [address] [place] [address] Performed By: #### 5 7021-8 ####[facility]ORATORYCLIA [id number] [address] [place] Nucleated RBC/100 WBC (Bld) [Ratio] 0.0 /100 WBC Normal [facility] Comment on above: Order Comment: Speci men Type: BLOOD SPECIMENOrdering Facility: [facility] Address: [address] [place], [place] [address] Performed By: #### 5 7021-8 ####[facility] LABORATORYCLIA [id number] [address] Platelet mean volume (Bld) [Entitic vol] 9.1 fL Normal 9.0-12.7 [facility] Comment on above: Order Comment: Speci men Type: BLOOD SPECIMENOrdering Facility: [facility] Address: [address] [place], [place] [address] Performed By: #### 5 7021-8 ####[facility] LABORATORYCLIA [id number] [address] [place] Platelets (Bld) [#/Vol] 391 10*3/uL Normal 150-400 [facility] Comment on above: Order Comment: Speci men Type: BLOOD SPECIMENOrdering Facility: [facility] Address: [address] [place] [address] Performed By: #### 5 7021-8 ####[facility]ORATORYCLIA [id number] [place] [address] [place] RBC (Bld) [#/Vol] 3.22 10*6/uL Low 4.20-6.00 [facility] Comment on above: Order Comment: Speci men Type: BLOOD SPECIMENOrdering Facility: [facility] Address: [address] [place], [place] [address] Performed By: #### 5 7021-8 ####[facility] LABORATORYCLIA [id number] [address] [place] WBC (Bld) [#/Vol] 7.76 10*3/uL Normal 3.70-11.00 [facility] Comment on above: Order Comment: Speci men Type: BLOOD SPECIMENOrdering Facility: [facility] Address: [address] [place] [address] Performed By: #### 5 7021-8 ####[facility] LABORATORYCLIA [id number] [address] [place] CONSULT PROGon 08-18-2021 CONSULT PROG Normal [facility] CASE MANAGEMon 08-17-2021 CASE MANAGEM Normal [facility] CBC W Auto Differential pane l (Bld)on 08-17-2021 Basophils (Bld) [#/Vol] 0.04 10*3/uL Normal <0.11 [facility] Comment on above: Order Comment: Speci men Type: BLOOD SPECIMENOrdering Facility: [facility] Address: [address] [place] [address] Performed By: #### 5 7021-8 ####[facility] LABORATORYCLIA [id number] [address] [place] Basophils/100 WBC (Bld) 0.5 % Normal [facility] Comment on above: Order Comment: Speci men Type: BLOOD SPECIMENOrdering Facility: [facility] Address: [address] [place] [address] Performed By: #### 5 7021-8 ####[facility]ORATORYCLIA [id number] [address] [place] Differential cell count method Nom (Bld) Auto Normal [facility] Comment on above: Order Comment: Speci men Type: BLOOD SPECIMENOrdering Facility: [facility] Address: [address] [place] [address] Performed By: #### 5 7021-8 ####[facility] LABORATORYCLIA [id number] [place] [address] [place] Eosinophils (Bld) [#/Vol] 0.31 10*3/uL Normal <0.46 [facility] Comment on above: Order Comment: Speci men Type: BLOOD SPECIMENOrdering Facility: [facility] Address: [address] [place] [address] Performed By: #### 5 7021-8 ####[facility] LABORATORYCLIA [id number] [address] [place] Eosinophils/100 WBC (Bld) 3.7 % Normal [facility] Comment on above: Order Comment: Speci men Type: BLOOD SPECIMENOrdering Facility: [facility] Address: [address] [place] [address] Performed By: #### 5 7021-8 ####[facility] LABORATORYCLIA [id number] [address] Erythrocyte distribution width (RBC) [Ratio] 17.4 % High 11.5-15.0 [facility] Comment on above: Order Comment: Speci men Type: BLOOD SPECIMENOrdering Facility: [facility] Address: [address] [place] [address] Performed By: #### 5 7021-8 ####[facility] LABORATORYCLIA [id number] [address] Hematocrit (Bld) [Volume fraction] 30.6 % Low 39.0-51.0 [facility] Comment on above: Order Comment: Speci men Type: BLOOD SPECIMENOrdering Facility: [facility] Address: [address] [place] [address] Performed By: #### 5 7021-8 ####[facility]ORATORYCLIA [id number] [address] [place] Hemoglobin (Bld) [Mass/Vol] 9.6 g/dL Low 13.0-17.0 [facility] Comment on above: Order Comment: Speci men Type: BLOOD SPECIMENOrdering Facility: [facility] Address: [address] [place] [address] Performed By: #### 5 7021-8 ####[facility] LABORATORYCLIA [id number] [address] [place] IMMATURE GRAN % 0.2 % Normal [facility] Comment on above: Order Comment: Speci men Type: BLOOD SPECIMENOrdering Facility: [facility] Address: [address] [place] [address] Performed By: #### 5 7021-8 ####[facility]ORATORYCLIA [id number] [address] IMMATURE GRAN ABS <0.03 Normal <0.10 [facility] Comment on above: Order Comment: Speci men Type: BLOOD SPECIMENOrdering Facility: [facility] Address: [address] [place] [address] Performed By: #### 5 7021-8 ####[facility] LABORATORYCLIA [id number] [address] [place] Lymphocytes (Bld) [#/Vol] 1.66 10*3/uL Normal 1.00-4.00 [facility] Comment on above: Order Comment: Speci men Type: BLOOD SPECIMENOrdering Facility: [facility] Address: [address] [place] [address] Performed By: #### 5 7021-8 ####[facility]ORATORYCLIA [id number] [address] Lymphocytes/100 WBC (Bld) 19.9 % Normal [facility] Comment on above: Order Comment: Speci men Type: BLOOD SPECIMENOrdering Facility: [facility] Address: [address] [place] [address] Performed By: #### 5 7021-8 ####[facility]ORATORYCLIA [id number] [address] MCH (RBC) [Entitic mass] 28.9 pg Normal 26.0-34.0 [facility] Comment on above: Order Comment: Speci men Type: BLOOD SPECIMENOrdering Facility: [facility] Address: [address] [place] [address] Performed By: #### 5 7021-8 ####[facility]ORATORYCLIA [id number] [address] MCHC (RBC) [Mass/Vol] 31.4 g/dL Normal 30.5-36.0 [facility] Comment on above: Order Comment: Speci men Type: BLOOD SPECIMENOrdering Facility: [facility] Address: [address] [place] [address] Performed By: #### 5 7021-8 ####[facility]ORATORYCLIA [id number] [place] [address] [place] MCV (RBC) [Entitic vol] 92.2 fL Normal 80.0-100.0 [facility] Comment on above: Order Comment: Speci men Type: BLOOD SPECIMENOrdering Facility: [facility] Address: [address] [place] [address] Performed By: #### 5 7021-8 ####[facility]ORATORYCLIA [id number] [address] [place] Monocytes (Bld) [#/Vol] 0.52 10*3/uL Normal <0.87 [facility] Comment on above: Order Comment: Speci men Type: BLOOD SPECIMENOrdering Facility: [facility] Address: [address] [place] [address] Performed By: #### 5 7021-8 ####[facility]ORATORYCLIA [id number] [address] [place] [facility] Monocytes/100 WBC (Bld) 6.2 % Normal [facility] Comment on above: Order Comment: Speci men Type: BLOOD SPECIMENOrdering Facility: [facility] Address: [address] [place] [address] Performed By: #### 5 7021-8 ####[facility] LABORATORYCLIA [id number] [address] [place] Neutrophils (Bld) [#/Vol] 5.78 10*3/uL Normal 1.45-7.50 [facility] Comment on above: Order Comment: Speci men Type: BLOOD SPECIMENOrdering Facility: [facility] Address: [address] [place] [address] Performed By: #### 5 7021-8 ####[facility]ORATORYCLIA [id number] [address] [place] Neutrophils/100 WBC (Bld) 69.5 % Normal [facility] Comment on above: Order Comment: Speci men Type: BLOOD SPECIMENOrdering Facility: [facility] Address: [address] Performed By: #### 5 7021-8 ####[facility]ORATORYCLIA [id number] [address] Nucleated RBC (Bld) [#/Vol] 10*3/uL Normal <0.01 [facility] Comment on above: Order Comment: Speci men Type: BLOOD SPECIMENOrdering Facility: [facility] Address: [address] [place], [place] [address] Performed By: #### 5 7021-8 ####[facility] LABORATORYCLIA [id number] [address] Nucleated RBC/100 WBC (Bld) [Ratio] 0.0 /100 WBC Normal [facility] Comment on above: Order Comment: Speci men Type: BLOOD SPECIMENOrdering Facility: [facility] Address: [address] [place], [place] [address] Performed By: #### 5 7021-8 ####[facility] LABORATORYCLIA [id number] [address] [place] [facility] Platelet mean volume (Bld) [Entitic vol] 9.2 fL Normal 9.0-12.7 [facility] Comment on above: Order Comment: Speci men Type: BLOOD SPECIMENOrdering Facility: [facility] Address: [address] [place], [place] [address] Performed By: #### 5 7021-8 ####[facility]ORATORYCLIA [id number] [address] [place] [facility] Platelets (Bld) [#/Vol] 379 10*3/uL Normal 150-400 [facility] Comment on above: Order Comment: Speci men Type: BLOOD SPECIMENOrdering Facility: [facility] Address: [address] [place], [place] [address] Performed By: #### 5 7021-8 ####[facility] LABORATORYCLIA [id number] [place] [address] [place] RBC (Bld) [#/Vol] 3.32 10*6/uL Low 4.20-6.00 [facility] Comment on above: Order Comment: Speci men Type: BLOOD SPECIMENOrdering Facility: [facility] Address: [address] [place] [address] Performed By: #### 5 7021-8 ####[facility] LABORATORYCLIA [id number] [place] [address] [place] WBC (Bld) [#/Vol] 8.33 10*3/uL Normal 3.70-11.00 [facility] Comment on above: Order Comment: Speci men Type: BLOOD SPECIMENOrdering Facility: [facility] Address: [address] [place] [address] Performed By: #### 5 7021-8 ####[facility] LABORATORYCLIA [id number] [address] OF [facility] CONSULT PROGon 08-17-2021 CONSULT PROG Normal [facility] NUTRITIONon 08-17-2021 NUTRITION Normal [facility] Basic metabolic 2000 panelon 08-16-2021 Anion gap [Moles/Vol] 14 mmol/L Normal 9-18 [facility] Comment on above: Order Comment: Speci men Type: BLOOD SPECIMENOrdering Facility: [facility] Address: [address] [place] [address] Performed By: #### 2 4321-2, 32107-1 ####[facility]ORATORYCLIA [id number] [address] [place] Calcium [Mass/Vol] 8.8 mg/dL Normal 8.5-10.2 [facility] Comment on above: Order Comment: Speci men Type: BLOOD SPECIMENOrdering Facility: [facility] Address: [address] [place] [address] Performed By: #### 2 4321-2, 28695-4 ####[facility]ORATORYCLIA [id number] [address] [place] Chloride [Moles/Vol] 97 mmol/L Normal 97-105 [facility] Comment on above: Order Comment: Speci men Type: BLOOD SPECIMENOrdering Facility: [facility] Address: [address] [address] Performed By: #### 2 4322, ####[facility] LABORATORYCLIA [id number] [place] [address] [place] CO2 [Moles/Vol] 27 mmol/L Normal 22-30 [facility] Comment on above: Order Comment: Speci men Type: BLOOD SPECIMENOrdering Facility: [facility] Address: [address] [place] [address] Performed By: #### 2 4322, ####[facility]CL[facility] [id number] [address] [place] OF [facility] Creatinine [Mass/Vol] 0.50 mg/dL Low 0.73-1.22 [facility] Comment on above: Order Comment: Speci men Type: BLOOD SPECIMENOrdering Facility: [facility] Address: [address] [place] [address] Performed By: #### 2 4320-06, ####[facility] LABORATORYCLIA [id number] [address] ESTIMATED GLOMERULAR FILTRATION RATE 110 mL/min/1.73m??? Normal >=60 [facility] Comment on above: Order Comment: Speci men Type: BLOOD SPECIMENOrdering Facility: [facility] Address: [address] [place] [address] Result Comment: Luzmaria mated Glomerular Filtration Rate [...] actual GFR. Performed By: #### 2 2, ####[facility] LABORATORYCLIA [id number] [place] [address] [place] Glucose [Mass/Vol] 101 mg/dL High 74-99 [facility] Comment on above: Order Comment: Shira feldman Type: BLOOD SPECIMENOrdering Facility: [facility] Address: [address] [place] [address] Result Comment: The [place] [employer] (ADA) provides guidance for cutoff [...] Standards of Medical Care in Diabetes 2016, [place] [employer]. Diabetes Care. 2016.39(Suppl 1). Performed By: #### 2 ####[facility] LABORATORYCLIA [id number] [place] [address] [place] Potassium [Moles/Vol] 3.6 mmol/L Low 3.7-5.1 [facility] Comment on above: Order Comment: Shira feldman Type: BLOOD SPECIMENOrdering Facility: [facility] Address: [address] [place] [address] Performed By: #### 2 ####[facility] LABORATORYCLIA [id number] [place] [address] [place] Sodium [Moles/Vol] 138 mmol/L Normal 136-144 [facility] Comment on above: Order Comment: Shira feldman Type: BLOOD SPECIMENOrdering Facility: [facility] Address: [address] [place] [address] Performed By: #### 2 ####[facility] LABORATORYCLIA [id number] [place] [address] [place] Urea nitrogen [Mass/Vol] 11 mg/dL Normal 9-24 [facility] Comment on above: Order Comment: Speci men Type: BLOOD SPECIMENOrdering Facility: [facility] Address: [address] [place] [address] Performed By: #### 2 4321-2, 48516-0 ####[facility] LABORATORYCLIA [id number] [address] [place] CASE MANAGEMon 08-16-2021 CASE MANAGEM Normal [facility] CBC W Auto Differential pane l (Bld)on 08-16-2021 Basophils (Bld) [#/Vol] 0.03 10*3/uL Normal <0.11 [facility] Comment on above: Order Comment: Speci men Type: BLOOD SPECIMENOrdering Facility: [facility] Address: [address] [place] [address] Performed By: #### 5 7021-8 ####[facility] LABORATORYCLIA [id number] [address] [place] Basophils/100 WBC (Bld) 0.4 % Normal [facility] Comment on above: Order Comment: Speci men Type: BLOOD SPECIMENOrdering Facility: [facility] Address: [address] [place] [address] Performed By: #### 5 7021-8 ####[facility] LABORATORYCLIA [id number] [address] [place] Differential cell count method Nom (Bld) Auto Normal [facility] Comment on above: Order Comment: Speci men Type: BLOOD SPECIMENOrdering Facility: [facility] Address: [address] [place] [address] Performed By: #### 5 7021-8 ####[facility] LABORATORYCLIA [id number] [place] [address] [place] Eosinophils (Bld) [#/Vol] 0.19 10*3/uL Normal <0.46 [facility] Comment on above: Order Comment: Speci men Type: BLOOD SPECIMENOrdering Facility: [facility] Address: [address] [place] [address] Performed By: #### 5 7021-8 ####[facility]ORATORYCLIA [id number] [address] Eosinophils/100 WBC (Bld) 2.5 % Normal [facility] Comment on above: Order Comment: Speci men Type: BLOOD SPECIMENOrdering Facility: [facility] Address: [address] [place] [address] Performed By: #### 5 7021-8 ####[facility] LABORATORYCLIA [id number] [address] Erythrocyte distribution width (RBC) [Ratio] 17.1 % High 11.5-15.0 [facility] Comment on above: Order Comment: Speci men Type: BLOOD SPECIMENOrdering Facility: [facility] Address: [address] [place] [address] Performed By: #### 5 7021-8 ####[facility] LABORATORYCLIA [id number] [address] Hematocrit (Bld) [Volume fraction] 29.2 % Low 39.0-51.0 [facility] Comment on above: Order Comment: Speci men Type: BLOOD SPECIMENOrdering Facility: [facility] Address: [address] [place] [address] Performed By: #### 5 7021-8 ####[facility] LABORATORYCLIA [id number] [address] Hemoglobin (Bld) [Mass/Vol] 9.0 g/dL Low 13.0-17.0 [facility] Comment on above: Order Comment: Speci men Type: BLOOD SPECIMENOrdering Facility: [facility] Address: [address] [place] [address] Performed By: #### 5 7021-8 ####[facility]ORATORYCLIA [id number] [address] [place] IMMATURE GRAN % 0.3 % Normal [facility] Comment on above: Order Comment: Speci men Type: BLOOD SPECIMENOrdering Facility: [facility] Address: [address] [place] [address] Performed By: #### 5 7021-8 ####[facility] LABORATORYCLIA [id number] [address] IMMATURE GRAN ABS <0.03 Normal <0.10 [facility] Comment on above: Order Comment: Speci men Type: BLOOD SPECIMENOrdering Facility: [facility] Address: [address] [place] [address] Performed By: #### 5 7021-8 ####[facility] LABORATORYCLIA [id number] [address] Lymphocytes (Bld) [#/Vol] 1.41 10*3/uL Normal 1.00-4.00 [facility] Comment on above: Order Comment: Speci men Type: BLOOD SPECIMENOrdering Facility: [facility] Address: [address] [place] [address] Performed By: #### 5 7021-8 ####[facility]ORATORYCLIA [id number] [address] Lymphocytes/100 WBC (Bld) 18.4 % Normal [facility] Comment on above: Order Comment: Speci men Type: BLOOD SPECIMENOrdering Facility: [facility] Address: [address] [place] [address] Performed By: #### 5 7021-8 ####[facility]ORATORYCLIA [id number] [address] MCH (RBC) [Entitic mass] 28.0 pg Normal 26.0-34.0 [facility] Comment on above: Order Comment: Speci men Type: BLOOD SPECIMENOrdering Facility: [facility] Address: [address] [place] [address] Performed By: #### 5 7021-8 ####[facility]ORATORYCLIA [id number] [address] MCHC (RBC) [Mass/Vol] 30.8 g/dL Normal 30.5-36.0 [facility] Comment on above: Order Comment: Speci men Type: BLOOD SPECIMENOrdering Facility: [facility] Address: [address] [place] [address] Performed By: #### 5 7021-8 ####[facility]ORATORYCLIA [id number] [address] [place] MCV (RBC) [Entitic vol] 91.0 fL Normal 80.0-100.0 [facility] Comment on above: Order Comment: Speci men Type: BLOOD SPECIMENOrdering Facility: [facility] Address: [address] [place] [address] Performed By: #### 5 7021-8 ####[facility] LABORATORYCLIA [id number] [address] STATES [facility] Monocytes (Bld) [#/Vol] 0.47 10*3/uL Normal <0.87 [facility] Comment on above: Order Comment: Speci men Type: BLOOD SPECIMENOrdering Facility: [facility] Address: [address] [place] [address] Performed By: #### 5 7021-8 ####[facility]ORATORYCLIA [id number] [address] Monocytes/100 WBC (Bld) 6.1 % Normal [facility] Comment on above: Order Comment: Speci men Type: BLOOD SPECIMENOrdering Facility: [facility] Address: [address] [place] [address] Performed By: #### 5 7021-8 ####[facility] LABORATORYCLIA [id number] [address] [place] Neutrophils (Bld) [#/Vol] 5.55 10*3/uL Normal 1.45-7.50 [facility] Comment on above: Order Comment: Speci men Type: BLOOD SPECIMENOrdering Facility: [facility] Address: [address] [place], [place] [address] Performed By: #### 5 7021-8 ####[facility]ORATORYCLIA [id number] [address] Neutrophils/100 WBC (Bld) 72.3 % Normal [facility] Comment on above: Order Comment: Speci men Type: BLOOD SPECIMENOrdering Facility: [facility] Address: [address] [place] [address] Performed By: #### 5 7021-8 ####[facility]ORATORYCLIA [id number] [address] [place] Nucleated RBC (Bld) [#/Vol] 10*3/uL Normal <0.01 [facility] Comment on above: Order Comment: Speci men Type: BLOOD SPECIMENOrdering Facility: [facility] Address: [address] [place] [address] Performed By: #### 5 7021-8 ####[facility]ORATORYCLIA [id number] [address] Nucleated RBC/100 WBC (Bld) [Ratio] 0.0 /100 WBC Normal [facility] Comment on above: Order Comment: Speci men Type: BLOOD SPECIMENOrdering Facility: [facility] Address: [address] [place] [address] Performed By: #### 5 7021-8 ####[facility]ORATORYCLIA [id number] [address] [place] Platelet mean volume (Bld) [Entitic vol] 9.3 fL Normal 9.0-12.7 [facility] Comment on above: Order Comment: Speci men Type: BLOOD SPECIMENOrdering Facility: [facility] Address: [address] [place] [address] Performed By: #### 5 7021-8 ####[facility]ORATORYCLIA [id number] [address] [place] Platelets (Bld) [#/Vol] 319 10*3/uL Normal 150-400 [facility] Comment on above: Order Comment: Speci men Type: BLOOD SPECIMENOrdering Facility: [facility] Address: [address] [place] [address] Performed By: #### 5 7021-8 ####[facility] LABORATORYCLIA [id number] [address] [place] RBC (Bld) [#/Vol] 3.21 10*6/uL Low 4.20-6.00 [facility] Comment on above: Order Comment: Speci men Type: BLOOD SPECIMENOrdering Facility: [facility] Address: [address] [place] [address] Performed By: #### 5 7021-8 ####[facility]ORATORYCLIA [id number] [address] [place] WBC (Bld) [#/Vol] 7.67 10*3/uL Normal 3.70-11.00 [facility] Comment on above: Order Comment: Speci men Type: BLOOD SPECIMENOrdering Facility: [facility] Address: [address] [place] [address] Performed By: #### 5 7021-8 ####[facility]ORATORYCLIA [id number] [address] [place] Basophils (Bld) [#/Vol] 0.04 10*3/uL Normal <0.11 [facility] Comment on above: Order Comment: Speci men Type: BLOOD SPECIMENOrdering Facility: [facility] Address: [address] [place] [address] Performed By: #### 5 7021-8 ####[facility]ORATORYCLIA [id number] [address] [place] Basophils/100 WBC (Bld) 0.5 % Normal [facility] Comment on above: Order Comment: Speci men Type: BLOOD SPECIMENOrdering Facility: [facility] Address: [address] [place] [address] Performed By: #### 5 7021-8 ####[facility]ORATORYCLIA [id number] [address] Differential cell count method Nom (Bld) Auto Normal [facility] Comment on above: Order Comment: Speci men Type: BLOOD SPECIMENOrdering Facility: [facility] Address: [address] [place] [address] Performed By: #### 5 7021-8 ####[facility]ORATORYCLIA [id number] [address] [place] Eosinophils (Bld) [#/Vol] 0.19 10*3/uL Normal <0.46 [facility] Comment on above: Order Comment: Speci men Type: BLOOD SPECIMENOrdering Facility: [facility] Address: [address] [place] [address] Performed By: #### 5 7021-8 ####[facility] LABORATORYCLIA [id number] [address] Eosinophils/100 WBC (Bld) 2.5 % Normal [facility] Comment on above: Order Comment: Speci men Type: BLOOD SPECIMENOrdering Facility: [facility] Address: [address] [place] [address] Performed By: #### 5 7021-8 ####[facility] LABORATORYCLIA [id number] [address] Erythrocyte distribution width (RBC) [Ratio] 17.2 % High 11.5-15.0 [facility] Comment on above: Order Comment: Speci men Type: BLOOD SPECIMENOrdering Facility: [facility] Address: [address] [place] [address] Performed By: #### 5 7021-8 ####[facility] LABORATORYCLIA [id number] [address] [place] Hematocrit (Bld) [Volume fraction] 29.5 % Low 39.0-51.0 [facility] Comment on above: Order Comment: Speci men Type: BLOOD SPECIMENOrdering Facility: [facility] Address: [address] [place] [address] Performed By: #### 5 7021-8 ####[facility] LABORATORYCLIA [id number] [address] STATES OF [facility] Hemoglobin (Bld) [Mass/Vol] 9.2 g/dL Low 13.0-17.0 [facility] Comment on above: Order Comment: Speci men Type: BLOOD SPECIMENOrdering Facility: [facility] Address: [address] [place] [address] Performed By: #### 5 7021-8 ####[facility] LABORATORYCLIA [id number] [address] IMMATURE GRAN % 0.4 % Normal [facility] Comment on above: Order Comment: Speci men Type: BLOOD SPECIMENOrdering Facility: [facility] Address: [address] [place] [address] Performed By: #### 5 7021-8 ####[facility]ORATORYCLIA [id number] [address] IMMATURE GRAN ABS 0.03 k/uL Normal <0.10 [facility] Comment on above: Order Comment: Speci men Type: BLOOD SPECIMENOrdering Facility: [facility] Address: [address] [place] [address] Performed By: #### 5 7021-8 ####[facility]ORATORYCLIA [id number] [address] [place] Lymphocytes (Bld) [#/Vol] 1.50 10*3/uL Normal 1.00-4.00 [facility] Comment on above: Order Comment: Speci men Type: BLOOD SPECIMENOrdering Facility: [facility] Address: [address] [place] [address] Performed By: #### 5 7021-8 ####[facility]ORATORYCLIA [id number] [address] Lymphocytes/100 WBC (Bld) 19.7 % Normal [facility] Comment on above: Order Comment: Speci men Type: BLOOD SPECIMENOrdering Facility: [facility] Address: [address] [place] [address] Performed By: #### 5 7021-8 ####[facility] LABORATORYCLIA [id number] [address] MCH (RBC) [Entitic mass] 28.3 pg Normal 26.0-34.0 [facility] Comment on above: Order Comment: Speci men Type: BLOOD SPECIMENOrdering Facility: [facility] Address: [address] [place] [address] Performed By: #### 5 7021-8 ####[facility] LABORATORYCLIA [id number] [address] MCHC (RBC) [Mass/Vol] 31.2 g/dL Normal 30.5-36.0 [facility] Comment on above: Order Comment: Speci men Type: BLOOD SPECIMENOrdering Facility: [facility] Address: [address] [place] [address] Performed By: #### 5 7021-8 ####[facility] LABORATORYCLIA [id number] [address] [place] [facility] MCV (RBC) [Entitic vol] 90.8 fL Normal 80.0-100.0 [facility] Comment on above: Order Comment: Speci men Type: BLOOD SPECIMENOrdering Facility: [facility] Address: [address] [place] [address] Performed By: #### 5 7021-8 ####[facility]ORATORYCLIA [id number] [address] Monocytes (Bld) [#/Vol] 0.49 10*3/uL Normal <0.87 [facility] Comment on above: Order Comment: Speci men Type: BLOOD SPECIMENOrdering Facility: [facility] Address: [address] [place] [address] Performed By: #### 5 7021-8 ####[facility]ORATORYCLIA [id number] [address] Monocytes/100 WBC (Bld) 6.4 % Normal [facility] Comment on above: Order Comment: Speci men Type: BLOOD SPECIMENOrdering Facility: [facility] Address: [address] [place] [address] Performed By: #### 5 7021-8 ####[facility]ORATORYCLIA [id number] [address] [place] Neutrophils (Bld) [#/Vol] 5.38 10*3/uL Normal 1.45-7.50 [facility] Comment on above: Order Comment: Speci men Type: BLOOD SPECIMENOrdering Facility: [facility] Address: [address] [place] [address] Performed By: #### 5 7021-8 ####[facility]ORATORYCLIA [id number] [address] [place] Neutrophils/100 WBC (Bld) 70.5 % Normal [facility] Comment on above: Order Comment: Speci men Type: BLOOD SPECIMENOrdering Facility: [facility] Address: [address] [place] [address] Performed By: #### 5 7021-8 ####[facility]ORATORYCLIA [id number] [address] [place] Nucleated RBC (Bld) [#/Vol] 10*3/uL Normal <0.01 [facility] Comment on above: Order Comment: Speci men Type: BLOOD SPECIMENOrdering Facility: [facility] Address: [address] [place] [address] Performed By: #### 5 7021-8 ####[facility]ORATORYCLIA [id number] [address] [place] Nucleated RBC/100 WBC (Bld) [Ratio] 0.0 /100 WBC Normal [facility] Comment on above: Order Comment: Speci men Type: BLOOD SPECIMENOrdering Facility: [facility] Address: [address] [address] Performed By: #### 5 7021-8 ####[facility]ORATORYCLIA [id number] [place] [address] [place] Platelet mean volume (Bld) [Entitic vol] 9.0 fL Normal 9.0-12.7 [facility] Comment on above: Order Comment: Speci men Type: BLOOD SPECIMENOrdering Facility: [facility] Address: [address] [place] [address] Performed By: #### 5 7021-8 ####[facility]ORATORYCLIA [id number] [place] [address] [place] Platelets (Bld) [#/Vol] 316 10*3/uL Normal 150-400 [facility] Comment on above: Order Comment: Speci men Type: BLOOD SPECIMENOrdering Facility: [facility] Address: [address] [place] [address] Performed By: #### 5 7021-8 ####[facility] LABORATORYCLIA [id number] [place] [address] [place] RBC (Bld) [#/Vol] 3.25 10*6/uL Low 4.20-6.00 [facility] Comment on above: Order Comment: Speci men Type: BLOOD SPECIMENOrdering Facility: [facility] Address: [address] [place] [address] Performed By: #### 5 7021-8 ####[facility]ORATORYCLIA [id number] [address] [place] WBC (Bld) [#/Vol] 7.63 10*3/uL Normal 3.70-11.00 [facility] Comment on above: Order Comment: Speci men Type: BLOOD SPECIMENOrdering Facility: [facility] Address: [address] [place] [address] Performed By: #### 5 7021-8 ####[facility]ORATORYCLIA [id number] [address] [place] Basophils (Bld) [#/Vol] Normal <0.11 [facility] Comment on above: Order Comment: Speci men Type: BLOOD SPECIMENOrdering Facility: [facility] Address: [address] [place] [address] Result Comment: Carolina Owens RN informed lab after results autoverified that she rd on the wrong patient. Lab to credit. Nurse to redraw on correct patient.Corrected result: Previously reported as 0.04 k/uL on 08/16/2021 at 4:44 AM EDT. Performed By: #### 5 7021-8 ####[facility]ORATORYCLIA [id number] [address] [place] [facility] Basophils/100 WBC (Bld) Normal [facility] Comment on above: Order Comment: Johni francia Type: BLOOD SPECIMENOrdering Facility: [facility] Address: [address] [place] [address] Result Comment: Tati ected result: Previously reported as 0.4 % on 08/16/2021 at 4:44 AM EDT. Performed By: #### 5 7021-8 ####[facility] LABORATORYCLIA [id number] [address] [place] [facility] CBC W Differential panel, method unspecified (Bld) Normal [facility] Comment on above: Order Comment: Speccara feldman Type: BLOOD SPECIMENOrdering Facility: [facility] Address: [address] [place] [address] Result Comment: Carolina Owens RN informed lab after results autoverified that she rd on the wrong patient. Lab to credit. Nurse to redraw on correct patient. Performed By: #### 5 7021-8 ####[facility] LABORATORYCLIA [id number] [address] [place] [facility] Differential cell count method Nom (Bld) Normal [facility] Comment on above: Order Comment: Speci francia Type: BLOOD SPECIMENOrdering Facility: [facility] Address: [address] [place] [address] Result Comment: Carolina Owens RN informed lab after results autoverified that she rd on the wrong patient. Lab to credit. Nurse to redraw on correct patient.Corrected result: Previously reported as Auto on 08/16/2021 at 4:44 AM EDT. Performed By: #### 5 7021-8 ####[facility] LABORATORYCLIA [id number] [address] Eosinophils (Bld) [#/Vol] Normal <0.46 [facility] Comment on above: Order Comment: Speci men Type: BLOOD SPECIMENOrdering Facility: [facility] Address: [address] [place] [address] Result Comment: Carolina Owens RN informed lab after results autoverified that she rd on the wrong patient. Lab to credit. Nurse to redraw on correct patient.Corrected result: Previously reported as 0.07 k/uL on 08/16/2021 at 4:44 AM EDT. Performed By: #### 5 7021-8 ####[facility] LABORATORYCLIA [id number] [address] Eosinophils/100 WBC (Bld) Normal [facility] Comment on above: Order Comment: Speci men Type: BLOOD SPECIMENOrdering Facility: [facility] Address: [address] [place] [address] Result Comment: Carolina Owens RN informed lab after results autoverified that she rd on the wrong patient. Lab to credit. Nurse to redraw on correct patient.Corrected result: Previously reported as 0.7 % on 08/16/2021 at 4:44 AM EDT. Performed By: #### 5 7021-8 ####[facility] LABORATORYCLIA [id number] [address] Erythrocyte distribution width (RBC) [Ratio] Normal 11.5-15.0 [facility] Comment on above: Order Comment: Speci men Type: BLOOD SPECIMENOrdering Facility: [facility] Address: [address] [place] [address] Result Comment: Carolina Owens RN informed lab after results autoverified that she rd on the wrong patient. Lab to credit. Nurse to redraw on correct patient.Corrected result: Previously reported as 14.2 % on 08/16/2021 at 4:44 AM EDT. Performed By: #### 5 7021-8 ####[facility] LABORATORYCLIA [id number] [address] Hematocrit (Bld) [Volume fraction] Normal 39.0-51.0 [facility] Comment on above: Order Comment: Speci men Type: BLOOD SPECIMENOrdering Facility: [facility] Address: [address] [place] [address] Result Comment: Carolina Owens RN informed lab after results autoverified that she rd on the wrong patient. Lab to credit. Nurse to redraw on correct patient.Corrected result: Previously reported as 34.3 % on 08/16/2021 at 4:44 AM EDT. Performed By: #### 5 7021-8 ####[facility]ORATORYCLIA [id number] [address] Hemoglobin (Bld) [Mass/Vol] Normal 13.0-17.0 [facility] Comment on above: Order Comment: Speci men Type: BLOOD SPECIMENOrdering Facility: [facility] Address: [address] [place] [address] Result Comment: Carolina Owens RN informed lab after results autoverified that she rd on the wrong patient. Lab to credit. Nurse to redraw on correct patient.Corrected result: Previously reported as 11.2 g/dL on 08/16/2021 at 4:44 AM EDT. Performed By: #### 5 7021-8 ####[facility] LABORATORYCLIA [id number] [address] [place] IMMATURE GRAN % Normal [facility] Comment on above: Order Comment: Speci men Type: BLOOD SPECIMENOrdering Facility: [facility] Address: [address] [place] [address] Result Comment: Carolina Owens RN informed lab after results autoverified that she rd on the wrong patient. Lab to credit. Nurse to redraw on correct patient.Corrected result: Previously reported as 0.8 % on 08/16/2021 at 4:44 AM EDT. Performed By: #### 5 7021-8 ####[facility] LABORATORYCLIA [id number] [address] [place] [facility] IMMATURE GRAN ABS Normal <0.10 [facility] Comment on above: Order Comment: Speci men Type: BLOOD SPECIMENOrdering Facility: [facility] Address: [address] [place] [address] Result Comment: Tati ected result: Previously reported as 0.08 k/uL on 08/16/2021 at 4:44 AM EDT. Performed By: #### 5 7021-8 ####[facility] LABORATORYCLIA [id number] [address] Lymphocytes (Bld) [#/Vol] Normal 1.00-4.00 [facility] Comment on above: Order Comment: Speci [facility] Type: BLOOD SPECIMENOrdering Facility: [facility] Address: [address] [place] [address] Result Comment: Carolina Owens RN informed lab after results autoverified that she rd on the wrong patient. Lab to credit. Nurse to redraw on correct patient.Corrected result: Previously reported as 1.17 k/uL on 08/16/2021 at 4:44 AM EDT. Performed By: #### 5 7021-8 ####[facility] LABORATORYCLIA [id number] [address] Lymphocytes/100 WBC (Bld) Normal [facility] Comment on above: Order Comment: Speci men Type: BLOOD SPECIMENOrdering Facility: [facility] Address: [address] [place] [address] Result Comment: Carolina Owens RN informed lab after results autoverified that she rd on the wrong patient. Lab to credit. Nurse to redraw on correct patient.Corrected result: Previously reported as 12.0 % on 08/16/2021 at 4:44 AM EDT. Performed By: #### 5 7021-8 ####[facility] LABORATORYCLIA [id number] [place] [address] [place] MCHC (RBC) [Mass/Vol] Normal 30.5-36.0 [facility] Comment on above: Order Comment: Speci men Type: BLOOD SPECIMENOrdering Facility: [facility] Address: [address] [place] [address] Result Comment: Carolina Owens RN informed lab after results autoverified that she rd on the wrong patient. Lab to credit. Nurse to redraw on correct patient.Corrected result: Previously reported as 32.7 g/dL on 08/16/2021 at 4:44 AM EDT. Performed By: #### 5 7021-8 ####[facility] LABORATORYCLIA [id number] [address] MCV (RBC) [Entitic vol] Normal 80.0-100.0 [facility] Comment on above: Order Comment: Speci men Type: BLOOD SPECIMENOrdering Facility: [facility] Address: [address] [place] [address] Result Comment: Carolina Owens RN informed lab after results autoverified that she rd on the wrong patient. Lab to credit. Nurse to redraw on correct patient.Corrected result: Previously reported as 94.2 fL on 08/16/2021 at 4:44 AM EDT. Performed By: #### 5 7021-8 ####[facility] LABORATORYCLIA [id number] [address] [place] Monocytes (Bld) [#/Vol] Normal <0.87 [facility] Comment on above: Order Comment: Speci men Type: BLOOD SPECIMENOrdering Facility: [facility] Address: [address] [place] [address] Result Comment: Carolina Owens RN informed lab after results autoverified that she rd on the wrong patient. Lab to credit. Nurse to redraw on correct patient.Corrected result: Previously reported as 0.99 k/uL on 08/16/2021 at 4:44 AM EDT. Performed By: #### 5 7021-8 ####[facility] LABORATORYCLIA [id number] [address] [place] Monocytes/100 WBC (Bld) Normal [facility] Comment on above: Order Comment: Speci francia Type: BLOOD SPECIMENOrdering Facility: [facility] Address: [address] [place] [address] Result Comment: Carolina Owens RN informed lab after results autoverified that she rd on the wrong patient. Lab to credit. Nurse to redraw on correct patient.Corrected result: Previously reported as 10.2 % on 08/16/2021 at 4:44 AM EDT. Performed By: #### 5 7021-8 ####[facility] LABORATORYCLIA [id number] [address] [place] Neutrophils (Bld) [#/Vol] Normal 1.45-7.50 [facility] Comment on above: Order Comment: Speccara feldman Type: BLOOD SPECIMENOrdering Facility: [facility] Address: [address] [place] [address] Result Comment: Carolina Owens RN informed lab after results autoverified that she rd on the wrong patient. Lab to credit. Nurse to redraw on correct patient.Corrected result: Previously reported as 7.40 k/uL on 08/16/2021 at 4:44 AM EDT. Performed By: #### 5 7021-8 ####[facility] LABORATORYCLIA [id number] [address] STATES OF [facility] Neutrophils/100 WBC (Bld) Normal [facility] Comment on above: Order Comment: Speci francia Type: BLOOD SPECIMENOrdering Facility: [facility] Address: [address] [place] [address] Result Comment: Carolina Owens RN informed lab after results autoverified that she rd on the wrong patient. Lab to credit. Nurse to redraw on correct patient.Corrected result: Previously reported as 75.9 % on 08/16/2021 at 4:44 AM EDT. Performed By: #### 5 7021-8 ####[facility] LABORATORYCLIA [id number] [place] [address] [place] Platelet mean volume (Bld) [Entitic vol] Normal 9.0-12.7 [facility] Comment on above: Order Comment: Speci men Type: BLOOD SPECIMENOrdering Facility: [facility] Address: [address] [place] [address] Result Comment: Carolina Owens RN informed lab after results autoverified that she rd on the wrong patient. Lab to credit. Nurse to redraw on correct patient.Corrected result: Previously reported as 9.1 fL on 08/16/2021 at 4:44 AM EDT. Performed By: #### 5 7021-8 ####[facility] LABORATORYCLIA [id number] [place] [address] [place] Platelets (Bld) [#/Vol] Normal 150-400 [facility] Comment on above: Order Comment: Speci men Type: BLOOD SPECIMENOrdering Facility: [facility] Address: [address] [place] [address] Result Comment: Carolina Owens RN informed lab after results autoverified that she rd on the wrong patient. Lab to credit. Nurse to redraw on correct patient.Corrected result: Previously reported as 338 k/uL on 08/16/2021 at 4:44 AM EDT. Performed By: #### 5 7021-8 ####[facility]ORATORYCLIA [id number] [place] [address] [place] RBC (Bld) [#/Vol] Normal 4.20-6.00 [facility] Comment on above: Order Comment: Speci men Type: BLOOD SPECIMENOrdering Facility: [facility] Address: [address] [place] [address] Result Comment: Carolina Owens RN informed lab after results autoverified that she rd on the wrong patient. Lab to credit. Nurse to redraw on correct patient.Corrected result: Previously reported as 3.64 m/uL on 08/16/2021 at 4:44 AM EDT. Performed By: #### 5 7021-8 ####[facility] LABORATORYCLIA [id number] [place] [address] [facility] [place] WBC (Bld) [#/Vol] Normal 3.70-11.00 [facility] Comment on above: Order Comment: Speci men Type: BLOOD SPECIMENOrdering Facility: [facility] Address: [address] [place] [address] Result Comment: Carolina Owens RN informed lab after results autoverified that she rd on the wrong patient. Lab to credit. Nurse to redraw on correct patient.Corrected result: Previously reported as 9.75 k/uL on 08/16/2021 at 4:44 AM EDT. Performed By: #### 5 7021-8 ####[facility] LABORATORYCLIA [id number] [address] [place] CONSULT PROGon 08-16-2021 CONSULT PROG [facility] Magnesium SerPl-mCncon 08-16 Magnesium [Mass/Vol] 1.8 mg/dL Normal 1.7-2.3 [facility] Comment on above: Order Comment: Speci men Type: BLOOD SPECIMENOrdering Facility: [facility] Address: [address] [place] [address] Performed By: #### 2 4321-2, 63895-0 ####[facility] LABORATORYCLIA [id number] [place] [address] [place] NURSING PROGon 08-16-2021 NURSING PROG Normal [facility] Basic metabolic 2000 panelon 08-15-2021 Anion gap [Moles/Vol] 13 mmol/L Normal 9-18 [facility] Comment on above: Order Comment: Speci men Type: BLOOD SPECIMENOrdering Facility: [facility] Address: [address] [place] [address] Performed By: #### 2 4321-2 ####[facility] LABORATORYCLIA [id number] [place] [address] [place] Calcium [Mass/Vol] 9.0 mg/dL Normal 8.5-10.2 [facility] Comment on above: Order Comment: Speci men Type: BLOOD SPECIMENOrdering Facility: [facility] Address: [address] [address] Performed By: #### 2 4321-2 ####[facility] LABORATORYCLIA [id number] [place] [address] [place] Chloride [Moles/Vol] 95 mmol/L Low 97-105 [facility] Comment on above: Order Comment: Speci men Type: BLOOD SPECIMENOrdering Facility: [facility] Address: [address] [place] [address] Performed By: #### 2 4321-2 ####[facility]ORATORYCLIA [id number] [place] [address] [place] CO2 [Moles/Vol] 28 mmol/L Normal 22-30 [facility] Comment on above: Order Comment: Speci men Type: BLOOD SPECIMENOrdering Facility: [facility] Address: [address] [place] [address] Performed By: #### 2 4321-2 ####[facility] LABORATORYCLIA [id number] [address] STATES OF [facility] Creatinine [Mass/Vol] 0.50 mg/dL Low 0.73-1.22 [facility] Comment on above: Order Comment: Speci men Type: BLOOD SPECIMENOrdering Facility: [facility] Address: [address] [place] [address] Performed By: #### 2 4321-2 ####[facility] LABORATORYCLIA [id number] [address] ESTIMATED GLOMERULAR FILTRATION RATE 110 mL/min/1.73m??? Normal >=60 [facility] Comment on above: Order Comment: Speci men Type: BLOOD SPECIMENOrdering Facility: [facility] Address: [address] [place] [address] Result Comment: Luzmaria mated Glomerular Filtration Rate [...] actual GFR. Performed By: #### 2 4321-2 ####[facility]ORATORYCLIA [id number] [place] [address] [place] Glucose [Mass/Vol] 106 mg/dL High 74-99 [facility] Comment on above: Order Comment: Shira feldman Type: BLOOD SPECIMENOrdering Facility: [facility] Address: [address] [place] [address] Result Comment: The [place] [employer] (ADA) provides guidance for cutoff [...] Standards of Medical Care in Diabetes 2016, [place] [employer]. Diabetes Care. 2016.39(Suppl 1). Performed By: #### 2 4321-2 ####[facility]ORATORYCLIA [id number] [place] [address] [place] Potassium [Moles/Vol] 3.3 mmol/L Low 3.7-5.1 [facility] Comment on above: Order Comment: Shira feldman Type: BLOOD SPECIMENOrdering Facility: [facility] Address: [address] [address] Performed By: #### 2 4321-2 ####[facility] LABORATORYCLIA [id number] [place] [address] [place] Sodium [Moles/Vol] 136 mmol/L Normal 136-144 [facility] Comment on above: Order Comment: Shira feldman Type: BLOOD SPECIMENOrdering Facility: [facility] Address: [address] [address] Performed By: #### 2 4321-2 ####[facility] LABORATORYCLIA [id number] [address] [place] Urea nitrogen [Mass/Vol] 11 mg/dL Normal 9-24 [facility] Comment on above: Order Comment: Speci men Type: BLOOD SPECIMENOrdering Facility: [facility] Address: [address] [place] [address] Performed By: #### 2 4321-2 ####[facility] LABORATORYCLIA [id number] [address] [place] CASE MANAGEMon 08-15-2021 CASE MANAGEM Normal [facility] CBC W Auto Differential pane l (Bld)on 08-15-2021 Basophils (Bld) [#/Vol] 0.03 10*3/uL Normal <0.11 [facility] Comment on above: Order Comment: Speci men Type: BLOOD SPECIMENOrdering Facility: [facility] Address: [address] [place] [address] Performed By: #### 5 7021-8 ####[facility] LABORATORYCLIA [id number] [address] [place] Basophils/100 WBC (Bld) 0.4 % Normal [facility] Comment on above: Order Comment: Speci men Type: BLOOD SPECIMENOrdering Facility: [facility] Address: [address] [place] [address] Performed By: #### 5 7021-8 ####[facility]ORATORYCLIA [id number] [address] STATES OF [facility] Differential cell count method Nom (Bld) Auto Normal [facility] Comment on above: Order Comment: Speci men Type: BLOOD SPECIMENOrdering Facility: [facility] Address: [address] [place] [address] Performed By: #### 5 7021-8 ####[facility] LABORATORYCLIA [id number] [place] [address] [place] Eosinophils (Bld) [#/Vol] 0.20 10*3/uL Normal <0.46 [facility] Comment on above: Order Comment: Speci men Type: BLOOD SPECIMENOrdering Facility: [facility] Address: [address] [place] [address] Performed By: #### 5 7021-8 ####[facility]ORATORYCLIA [id number] [address] [place] OF [facility] Eosinophils/100 WBC (Bld) 2.5 % Normal [facility] Comment on above: Order Comment: Speci men Type: BLOOD SPECIMENOrdering Facility: [facility] Address: [address] [place] [address] Performed By: #### 5 7021-8 ####[facility]ORATORYCLIA [id number] [address] Erythrocyte distribution width (RBC) [Ratio] 16.7 % High 11.5-15.0 [facility] Comment on above: Order Comment: Speci men Type: BLOOD SPECIMENOrdering Facility: [facility] Address: [address] [place] [address] Performed By: #### 5 7021-8 ####[facility]ORATORYCLIA [id number] [address] Hematocrit (Bld) [Volume fraction] 30.3 % Low 39.0-51.0 [facility] Comment on above: Order Comment: Speci men Type: BLOOD SPECIMENOrdering Facility: [facility] Address: [address] [place] [address] Performed By: #### 5 7021-8 ####[facility] LABORATORYCLIA [id number] [address] [place] Hemoglobin (Bld) [Mass/Vol] 9.4 g/dL Low 13.0-17.0 [facility] Comment on above: Order Comment: Speci men Type: BLOOD SPECIMENOrdering Facility: [facility] Address: [address] [place] [address] Performed By: #### 5 7021-8 ####[facility] LABORATORYCLIA [id number] [address] [place] IMMATURE GRAN % 0.4 % Normal [facility] Comment on above: Order Comment: Speci men Type: BLOOD SPECIMENOrdering Facility: [facility] Address: [address] [place] [address] Performed By: #### 5 7021-8 ####[facility]ORATORYCLIA [id number] [address] IMMATURE GRAN ABS 0.03 k/uL Normal <0.10 [facility] Comment on above: Order Comment: Speci men Type: BLOOD SPECIMENOrdering Facility: [facility] Address: [address] [place] [address] Performed By: #### 5 7021-8 ####[facility]ORATORYCLIA [id number] [address] Lymphocytes (Bld) [#/Vol] 1.50 10*3/uL Normal 1.00-4.00 [facility] Comment on above: Order Comment: Speci men Type: BLOOD SPECIMENOrdering Facility: [facility] Address: [address] [place] [address] Performed By: #### 5 7021-8 ####[facility]ATORYCLIA [id number] [address] Lymphocytes/100 WBC (Bld) 18.5 % Normal [facility] Comment on above: Order Comment: Speci men Type: BLOOD SPECIMENOrdering Facility: [facility] Address: [address] [place] [address] Performed By: #### 5 7021-8 ####[facility]ORATORYCLIA [id number] [address] [place] [facility] MCH (RBC) [Entitic mass] 29.0 pg Normal 26.0-34.0 [facility] Comment on above: Order Comment: Speci men Type: BLOOD SPECIMENOrdering Facility: [facility] Address: [address] [place] [address] Performed By: #### 5 7021-8 ####[facility]ORATORYCLIA [id number] [address] [place] OF [facility] MCHC (RBC) [Mass/Vol] 31.0 g/dL Normal 30.5-36.0 [facility] Comment on above: Order Comment: Speci men Type: BLOOD SPECIMENOrdering Facility: [facility] Address: [address] [place] [address] Performed By: #### 5 7021-8 ####[facility]ORATORYCLIA [id number] [address] MCV (RBC) [Entitic vol] 93.5 fL Normal 80.0-100.0 [facility] Comment on above: Order Comment: Speci men Type: BLOOD SPECIMENOrdering Facility: [facility] Address: [address] [place] [address] Performed By: #### 5 7021-8 ####[facility] LABORATORYCLIA [id number] [address] [place] Monocytes (Bld) [#/Vol] 0.47 10*3/uL Normal <0.87 [facility] Comment on above: Order Comment: Speci men Type: BLOOD SPECIMENOrdering Facility: [facility] Address: [address] [place] [address] Performed By: #### 5 7021-8 ####[facility]ORATORYCLIA [id number] [address] Monocytes/100 WBC (Bld) 5.8 % Normal [facility] Comment on above: Order Comment: Speci men Type: BLOOD SPECIMENOrdering Facility: [facility] Address: [address] [place] [address] Performed By: #### 5 7021-8 ####[facility]ORATORYCLIA [id number] [address] [place] Neutrophils (Bld) [#/Vol] 5.87 10*3/uL Normal 1.45-7.50 [facility] Comment on above: Order Comment: Speci men Type: BLOOD SPECIMENOrdering Facility: [facility] Address: [address] [place] [address] Performed By: #### 5 7021-8 ####[facility] LABORATORYCLIA [id number] [address] Neutrophils/100 WBC (Bld) 72.4 % Normal [facility] Comment on above: Order Comment: Speci men Type: BLOOD SPECIMENOrdering Facility: [facility] Address: [address] [place] [address] Performed By: #### 5 7021-8 ####[facility]ORATORYCLIA [id number] [address] Nucleated RBC (Bld) [#/Vol] 10*3/uL Normal <0.01 [facility] Comment on above: Order Comment: Speci men Type: BLOOD SPECIMENOrdering Facility: [facility] Address: [address] [place] [address] Performed By: #### 5 7021-8 ####[facility]ORATORYCLIA [id number] [address] Nucleated RBC/100 WBC (Bld) [Ratio] 0.0 /100 WBC Normal [facility] Comment on above: Order Comment: Speci men Type: BLOOD SPECIMENOrdering Facility: [facility] Address: [address] [place] [address] Performed By: #### 5 7021-8 ####[facility]ORATORYCLIA [id number] [address] Platelet mean volume (Bld) [Entitic vol] 9.4 fL Normal 9.0-12.7 [facility] Comment on above: Order Comment: Speci men Type: BLOOD SPECIMENOrdering Facility: [facility] Address: [address] [place] [address] Performed By: #### 5 7021-8 ####[facility]ORATORYCLIA [id number] [address] [place] Platelets (Bld) [#/Vol] 290 10*3/uL Normal 150-400 [facility] Comment on above: Order Comment: Speci men Type: BLOOD SPECIMENOrdering Facility: [facility] Address: [address] [place] [address] Performed By: #### 5 7021-8 ####[facility]ORATORYCLIA [id number] [address] [place] OF [facility] RBC (Bld) [#/Vol] 3.24 10*6/uL Low 4.20-6.00 [facility] Comment on above: Order Comment: Speci men Type: BLOOD SPECIMENOrdering Facility: [facility] Address: [address] [place] [address] Performed By: #### 5 7021-8 ####[facility]ORATORYCLIA [id number] [address] [place] OF [facility] WBC (Bld) [#/Vol] 8.10 10*3/uL Normal 3.70-11.00 [facility] Comment on above: Order Comment: Speci men Type: BLOOD SPECIMENOrdering Facility: [facility] Address: [address] [place] [address] Performed By: #### 5 7021-8 ####[facility] LABORATORYCLIA [id number] [address] OF [facility] THERAPY NTon 08-15-2021 THERAPY NT Normal [facility] THERAPY NT Normal [facility] THERAPY NT Normal [facility] Basic metabolic 2000 panelon 08-14-2021 Anion gap [Moles/Vol] 10 mmol/L Normal 9-18 [facility] Comment on above: Order Comment: Speci men Type: BLOOD SPECIMENOrdering Facility: [facility] Address: [address] [place] [address] Performed By: #### 2 4321-2 ####[facility] LABORATORYCLIA [id number] [address] [place] Calcium [Mass/Vol] 8.8 mg/dL Normal 8.5-10.2 [facility] Comment on above: Order Comment: Speci men Type: BLOOD SPECIMENOrdering Facility: [facility] Address: [address] [place] [address] Performed By: #### 2 4321-2 ####[facility] LABORATORYCLIA [id number] [place] [address] [place] Chloride [Moles/Vol] 92 mmol/L Low 97-105 [facility] Comment on above: Order Comment: Speci men Type: BLOOD SPECIMENOrdering Facility: [facility] Address: [address] [place] [address] Performed By: #### 2 4321-2 ####[facility]ORATORYCLIA [id number] [place] [address] [place] CO2 [Moles/Vol] 29 mmol/L Normal 22-30 [facility] Comment on above: Order Comment: Speci men Type: BLOOD SPECIMENOrdering Facility: [facility] Address: [address] [place] [address] Performed By: #### 2 4321-2 ####[facility]ORATORYCLIA [id number] [place] [address] [place] Creatinine [Mass/Vol] 0.49 mg/dL Low 0.73-1.22 [facility] Comment on above: Order Comment: Speci men Type: BLOOD SPECIMENOrdering Facility: [facility] Address: [address] [place] [address] Performed By: #### 2 4321-2 ####[facility] LABORATORYCLIA [id number] [address] OF [facility] ESTIMATED GLOMERULAR FILTRATION RATE 111 mL/min/1.73m??? Normal >=60 [facility] Comment on above: Order Comment: Speci men Type: BLOOD SPECIMENOrdering Facility: [facility] Address: [address] [place] [address] Result Comment: Luzmaria mated Glomerular Filtration Rate [...] actual GFR. Performed By: #### 2 4321-2 ####[facility] LABORATORYCLIA [id number] [place] [address] [place] Glucose [Mass/Vol] 104 mg/dL High 74-99 [facility] Comment on above: Order Comment: Shira feldman Type: BLOOD SPECIMENOrdering Facility: [facility] Address: [address] [id number] Result Comment: The [place] [employer] (ADA) provides guidance for cutoff [...] Standards of Medical Care in Diabetes 2016, [place] [employer]. Diabetes Care. 2016.39(Suppl 1). Performed By: #### 2 4321-2 ####[facility] LABORATORYCLIA [id number] [place] [address] [place] Potassium [Moles/Vol] 3.1 mmol/L Low 3.7-5.1 [facility] Comment on above: Order Comment: Shira feldman Type: BLOOD SPECIMENOrdering Facility: [facility] Address: [address] [place] [address] Performed By: #### 2 4321-2 ####[facility]ORATORYCLIA [id number] [place] [address] [place] Sodium [Moles/Vol] 131 mmol/L Low 136-144 [facility] Comment on above: Order Comment: Shira feldman Type: BLOOD SPECIMENOrdering Facility: [facility] Address: [address] [place] [place] [address] Performed By: #### 2 4321-2 ####[facility]ORATORYCLIA [id number] [address] [place] [facility] Urea nitrogen [Mass/Vol] 13 mg/dL Normal 9-24 [facility] Comment on above: Order Comment: Speci men Type: BLOOD SPECIMENOrdering Facility: [facility] Address: [address] [place] [address] Performed By: #### 2 4321-2 ####[facility]ORATORYCLIA [id number] [address] [place] CBC W Auto Differential pane l (Bld)on 08-14-2021 Basophils (Bld) [#/Vol] 10*3/uL Normal <0.11 [facility] Comment on above: Order Comment: Speci men Type: BLOOD SPECIMENOrdering Facility: [facility] Address: [address] [place] [address] Performed By: #### 5 7021-8 ####[facility] LABORATORYCLIA [id number] [address] [place] Basophils/100 WBC (Bld) 0.2 % Normal [facility] Comment on above: Order Comment: Speci men Type: BLOOD SPECIMENOrdering Facility: [facility] Address: [address] [place] [address] Performed By: #### 5 7021-8 ####[facility]ORATORYCLIA [id number] [address] Differential cell count method Nom (Bld) Auto Normal [facility] Comment on above: Order Comment: Speci men Type: BLOOD SPECIMENOrdering Facility: [facility] Address: [address] [place] [address] Performed By: #### 5 7021-8 ####[facility]ORATORYCLIA [id number] [place] [address] [place] Eosinophils (Bld) [#/Vol] 0.23 10*3/uL Normal <0.46 [facility] Comment on above: Order Comment: Speci men Type: BLOOD SPECIMENOrdering Facility: [facility] Address: [address] [place] [address] Performed By: #### 5 7021-8 ####[facility]ORATORYCLIA [id number] [address] [place] Eosinophils/100 WBC (Bld) 2.7 % Normal [facility] Comment on above: Order Comment: Speci men Type: BLOOD SPECIMENOrdering Facility: [facility] Address: [address] [place] [address] Performed By: #### 5 7021-8 ####[facility]ORATORYCLIA [id number] [address] [place] Erythrocyte distribution width (RBC) [Ratio] 16.6 % High 11.5-15.0 [facility] Comment on above: Order Comment: Speci men Type: BLOOD SPECIMENOrdering Facility: [facility] Address: [address] [place] [address] Performed By: #### 5 7021-8 ####[facility]ORATORYCLIA [id number] [address] [place] Hematocrit (Bld) [Volume fraction] 28.6 % Low 39.0-51.0 [facility] Comment on above: Order Comment: Speci men Type: BLOOD SPECIMENOrdering Facility: [facility] Address: [address] [place] [address] Performed By: #### 5 7021-8 ####[facility]ORATORYCLIA [id number] [address] [place] Hemoglobin (Bld) [Mass/Vol] 9.0 g/dL Low 13.0-17.0 [facility] Comment on above: Order Comment: Speci men Type: BLOOD SPECIMENOrdering Facility: [facility] Address: [address] [place] [address] Performed By: #### 5 7021-8 ####[facility]ORATORYCLIA [id number] [address] IMMATURE GRAN % 0.2 % Normal [facility] Comment on above: Order Comment: Speci men Type: BLOOD SPECIMENOrdering Facility: [facility] Address: [address] [place] [address] Performed By: #### 5 7021-8 ####[facility]ORATORYCLIA [id number] [address] IMMATURE GRAN ABS <0.03 Normal <0.10 [facility] Comment on above: Order Comment: Speci men Type: BLOOD SPECIMENOrdering Facility: [facility] Address: [address] [place] [address] Performed By: #### 5 7021-8 ####[facility]ORATORYCLIA [id number] [address] Lymphocytes (Bld) [#/Vol] 1.33 10*3/uL Normal 1.00-4.00 [facility] Comment on above: Order Comment: Speci men Type: BLOOD SPECIMENOrdering Facility: [facility] Address: [address] [place] [address] Performed By: #### 5 7021-8 ####[facility]ORATORYCLIA [id number] [address] Lymphocytes/100 WBC (Bld) 15.6 % Normal [facility] Comment on above: Order Comment: Speci men Type: BLOOD SPECIMENOrdering Facility: [facility] Address: [address] [place] [address] Performed By: #### 5 7021-8 ####[facility]ORATORYCLIA [id number] [address] [place] [facility] MCH (RBC) [Entitic mass] 29.0 pg Normal 26.0-34.0 [facility] Comment on above: Order Comment: Speci men Type: BLOOD SPECIMENOrdering Facility: [facility] Address: [address] [place] [address] Performed By: #### 5 7021-8 ####[facility]ORATORYCLIA [id number] [address] [place] MCHC (RBC) [Mass/Vol] 31.5 g/dL Normal 30.5-36.0 [facility] Comment on above: Order Comment: Speci men Type: BLOOD SPECIMENOrdering Facility: [facility] Address: [address] [place] [address] Performed By: #### 5 7021-8 ####[facility]ORATORYCLIA [id number] [address] MCV (RBC) [Entitic vol] 92.3 fL Normal 80.0-100.0 [facility] Comment on above: Order Comment: Speci men Type: BLOOD SPECIMENOrdering Facility: [facility] Address: [address] [place] [address] Performed By: #### 5 7021-8 ####[facility]ORATORYCLIA [id number] [address] [place] Monocytes (Bld) [#/Vol] 0.44 10*3/uL Normal <0.87 [facility] Comment on above: Order Comment: Speci men Type: BLOOD SPECIMENOrdering Facility: [facility] Address: [address] [place] [address] Performed By: #### 5 7021-8 ####[facility]ORATORYCLIA [id number] [address] Monocytes/100 WBC (Bld) 5.2 % Normal [facility] Comment on above: Order Comment: Speci men Type: BLOOD SPECIMENOrdering Facility: [facility] Address: [address] [place] [address] Performed By: #### 5 7021-8 ####[facility]ORATORYCLIA [id number] [address] [place] Neutrophils (Bld) [#/Vol] 6.46 10*3/uL Normal 1.45-7.50 [facility] Comment on above: Order Comment: Speci men Type: BLOOD SPECIMENOrdering Facility: [facility] Address: [address] [address] Performed By: #### 5 7021-8 ####[facility]ORATORYCLIA [id number] [address] Neutrophils/100 WBC (Bld) 76.1 % Normal [facility] Comment on above: Order Comment: Speci men Type: BLOOD SPECIMENOrdering Facility: [facility] Address: [address] [place] [address] Performed By: #### 5 7021-8 ####[facility]ATORYCLIA [id number] [address] Nucleated RBC (Bld) [#/Vol] 10*3/uL Normal <0.01 [facility] Comment on above: Order Comment: Speci men Type: BLOOD SPECIMENOrdering Facility: [facility] Address: [address] [place] [address] Performed By: #### 5 7021-8 ####[facility]ORATORYCLIA [id number] [address] Nucleated RBC/100 WBC (Bld) [Ratio] 0.0 /100 WBC Normal [facility] Comment on above: Order Comment: Speci men Type: BLOOD SPECIMENOrdering Facility: [facility] Address: [address] [place] [address] Performed By: #### 5 7021-8 ####[facility]ORATORYCLIA [id number] [address] [place] Platelet mean volume (Bld) [Entitic vol] 9.5 fL Normal 9.0-12.7 [facility] Comment on above: Order Comment: Speci men Type: BLOOD SPECIMENOrdering Facility: [facility] Address: [address] [place] [address] Performed By: #### 5 7021-8 ####[facility]ORATORYCLIA [id number] [address] [place] Platelets (Bld) [#/Vol] 247 10*3/uL Normal 150-400 [facility] Comment on above: Order Comment: Speci men Type: BLOOD SPECIMENOrdering Facility: [facility] Address: [address] [place] [address] Performed By: #### 5 7021-8 ####[facility]ORATORYCLIA [id number] [place] [address] [place] [facility] RBC (Bld) [#/Vol] 3.10 10*6/uL Low 4.20-6.00 [facility] Comment on above: Order Comment: Speci men Type: BLOOD SPECIMENOrdering Facility: [facility] Address: [address] [place] [address] Performed By: #### 5 7021-8 ####[facility]ORATORYCLIA [id number] [address] [place] WBC (Bld) [#/Vol] 8.50 10*3/uL Normal 3.70-11.00 [facility] Comment on above: Order Comment: Speci men Type: BLOOD SPECIMENOrdering Facility: [facility] Address: [address] [place] [address] Performed By: #### 5 7021-8 ####[facility]ORATORYCLIA [id number] [address] [place] CONSULTon 08-14-2021 CONSULT Normal [facility] NURSING PROGon 08-14-2021 NURSING PROG Normal [facility] CBC W Auto Differential pane l (Bld)on 08-13-2021 Basophils (Bld) [#/Vol] 10*3/uL Normal <0.11 [facility] Comment on above: Order Comment: Speci men Type: BLOOD SPECIMENOrdering Facility: [facility] Address: [address] [place] [address] Performed By: #### 5 7021-8 ####[facility]ATORYCLIA [id number] [address] [place] Basophils/100 WBC (Bld) 0.2 % Normal [facility] Comment on above: Order Comment: Speci men Type: BLOOD SPECIMENOrdering Facility: [facility] Address: [address] [place] [address] Performed By: #### 5 7021-8 ####[facility]ORATORYCLIA [id number] [address] Differential cell count method Nom (Bld) Auto Normal [facility] Comment on above: Order Comment: Speci men Type: BLOOD SPECIMENOrdering Facility: [facility] Address: [address] [place] [address] Performed By: #### 5 7021-8 ####[facility]ATORYCLIA [id number] [address] Eosinophils (Bld) [#/Vol] 0.31 10*3/uL Normal <0.46 [facility] Comment on above: Order Comment: Speci men Type: BLOOD SPECIMENOrdering Facility: [facility] Address: [address] [place] [address] Performed By: #### 5 7021-8 ####[facility]ORATORYCLIA [id number] [address] Eosinophils/100 WBC (Bld) 3.7 % Normal [facility] Comment on above: Order Comment: Speci men Type: BLOOD SPECIMENOrdering Facility: [facility] Address: [address] [place] [address] Performed By: #### 5 7021-8 ####[facility]ATORYCLIA [id number] [address] Erythrocyte distribution width (RBC) [Ratio] 16.6 % High 11.5-15.0 [facility] Comment on above: Order Comment: Speci men Type: BLOOD SPECIMENOrdering Facility: [facility] Address: [address] [place] [address] Performed By: #### 5 7021-8 ####[facility]ORATORYCLIA [id number] [address] [place] Hematocrit (Bld) [Volume fraction] 27.5 % Low 39.0-51.0 [facility] Comment on above: Order Comment: Speci men Type: BLOOD SPECIMENOrdering Facility: [facility] Address: [address] [place] [address] Performed By: #### 5 7021-8 ####[facility]ORATORYCLIA [id number] [address] Hemoglobin (Bld) [Mass/Vol] 8.4 g/dL Low 13.0-17.0 [facility] Comment on above: Order Comment: Speci men Type: BLOOD SPECIMENOrdering Facility: [facility] Address: [address] [place] [address] Performed By: #### 5 7021-8 ####[facility]ORATORYCLIA [id number] [address] IMMATURE GRAN % 0.5 % Normal [facility] Comment on above: Order Comment: Speci men Type: BLOOD SPECIMENOrdering Facility: [facility] Address: [address] [place] [address] Performed By: #### 5 7021-8 ####[facility]ORATORYCLIA [id number] [address] IMMATURE GRAN ABS 0.04 k/uL Normal <0.10 [facility] Comment on above: Order Comment: Speci men Type: BLOOD SPECIMENOrdering Facility: [facility] Address: [address] [place] [address] Performed By: #### 5 7021-8 ####[facility]ORATORYCLIA [id number] [address] Lymphocytes (Bld) [#/Vol] 1.55 10*3/uL Normal 1.00-4.00 [facility] Comment on above: Order Comment: Speci men Type: BLOOD SPECIMENOrdering Facility: [facility] Address: [address] [place] [address] Performed By: #### 5 7021-8 ####[facility]ORATORYCLIA [id number] [address] Lymphocytes/100 WBC (Bld) 18.7 % Normal [facility] Comment on above: Order Comment: Speci men Type: BLOOD SPECIMENOrdering Facility: [facility] Address: [address] [place] [address] Performed By: #### 5 7021-8 ####[facility]ORATORYCLIA [id number] [address] MCH (RBC) [Entitic mass] 28.9 pg Normal 26.0-34.0 [facility] Comment on above: Order Comment: Speci men Type: BLOOD SPECIMENOrdering Facility: [facility] Address: [address] [place] [address] Performed By: #### 5 7021-8 ####[facility]ORATORYCLIA [id number] [address] MCHC (RBC) [Mass/Vol] 30.5 g/dL Normal 30.5-36.0 [facility] Comment on above: Order Comment: Speci men Type: BLOOD SPECIMENOrdering Facility: [facility] Address: [address] [place] [address] Performed By: #### 5 7021-8 ####[facility]ORATORYCLIA [id number] [address] MCV (RBC) [Entitic vol] 94.5 fL Normal 80.0-100.0 [facility] Comment on above: Order Comment: Speci men Type: BLOOD SPECIMENOrdering Facility: [facility] Address: [address] [place] [address] Performed By: #### 5 7021-8 ####[facility]ORATORYCLIA [id number] [address] Monocytes (Bld) [#/Vol] 0.47 10*3/uL Normal <0.87 [facility] Comment on above: Order Comment: Speci men Type: BLOOD SPECIMENOrdering Facility: [facility] Address: [address] [place] [address] Performed By: #### 5 7021-8 ####[facility]ORATORYCLIA [id number] [address] Monocytes/100 WBC (Bld) 5.7 % Normal [facility] Comment on above: Order Comment: Speci men Type: BLOOD SPECIMENOrdering Facility: [facility] Address: [address] [place] [address] Performed By: #### 5 7021-8 ####[facility]ORATORYCLIA [id number] [address] [place] Neutrophils (Bld) [#/Vol] 5.92 10*3/uL Normal 1.45-7.50 [facility] Comment on above: Order Comment: Speci men Type: BLOOD SPECIMENOrdering Facility: [facility] Address: [address] [place] [address] Performed By: #### 5 7021-8 ####[facility]ORATORYCLIA [id number] [address] Neutrophils/100 WBC (Bld) 71.2 % Normal [facility] Comment on above: Order Comment: Speci men Type: BLOOD SPECIMENOrdering Facility: [facility] Address: [address] [place] [address] Performed By: #### 5 7021-8 ####[facility]ORATORYCLIA [id number] [address] [place] Nucleated RBC (Bld) [#/Vol] 10*3/uL Normal <0.01 [facility] Comment on above: Order Comment: Speci men Type: BLOOD SPECIMENOrdering Facility: [facility] Address: [address] [place] [address] Performed By: #### 5 7021-8 ####[facility]ATORYCLIA [id number] [address] [place] Nucleated RBC/100 WBC (Bld) [Ratio] 0.0 /100 WBC Normal [facility] Comment on above: Order Comment: Speci men Type: BLOOD SPECIMENOrdering Facility: [facility] Address: [address] [place] [address] Performed By: #### 5 7021-8 ####[facility]ORATORYCLIA [id number] [address] [place] Platelet mean volume (Bld) [Entitic vol] 9.9 fL Normal 9.0-12.7 [facility] Comment on above: Order Comment: Speci men Type: BLOOD SPECIMENOrdering Facility: [facility] Address: [address] [place] [address] Performed By: #### 5 7021-8 ####[facility]ORATORYCLIA [id number] [address] [place] Platelets (Bld) [#/Vol] 203 10*3/uL Normal 150-400 [facility] Comment on above: Order Comment: Speci men Type: BLOOD SPECIMENOrdering Facility: [facility] Address: [address] [place] [address] Performed By: #### 5 7021-8 ####[facility]ORATORYCLIA [id number] [address] [place] RBC (Bld) [#/Vol] 2.91 10*6/uL Low 4.20-6.00 [facility] Comment on above: Order Comment: Speci men Type: BLOOD SPECIMENOrdering Facility: [facility] Address: [address] [place], [place] [address] Performed By: #### 5 7021-8 ####[facility]ORATORYCLIA [id number] [address] [place] WBC (Bld) [#/Vol] 8.31 10*3/uL Normal 3.70-11.00 [facility] Comment on above: Order Comment: Speci men Type: BLOOD SPECIMENOrdering Facility: [facility] Address: [address] [place] [address] Performed By: #### 5 7021-8 ####[facility]ORATORYCLIA [id number] [address] OF [facility] aPTT PPPon 08-13-2021 aPTT Coag (PPP) [Time] 69.7 s High 23.0-32.4 [facility] Comment on above: Order Comment: Speci men Type: BLOOD SPECIMENOrdering Facility: [facility] Address: [address] [place], [place] [address] Performed By: #### 1 4979-9 ####[facility]ORATORYCLIA [id number] [address] STATES OF [facility] aPTT Coag (PPP) [Time] 70.6 s High 23.0-32.4 [facility] Comment on above: Order Comment: Speci men Type: BLOOD SPECIMENOrdering Facility: [facility] Address: [address] [place], [place] [address] Performed By: #### 1 4979-9 ####[facility]ORATORYCLIA [id number] [address] [place] ALLIED HEALTHon 08-12-2021 ALLIED HEALTH Normal [facility] ALLIED HEALTH Normal [facility] Basic metabolic 2000 panelon 08-12-2021 Anion gap [Moles/Vol] 7 mmol/L Low 9-18 [facility] Comment on above: Order Comment: Speci men Type: BLOOD SPECIMENOrdering Facility: [facility] Address: [address] [place], [place] [address] Performed By: #### 2 4321-2, , 2776-05 ####[facility]ORATORYCLIA [id number] [address] STATES OF [facility] Calcium [Mass/Vol] 8.8 mg/dL Normal 8.5-10.2 [facility] Comment on above: Order Comment: Speci men Type: BLOOD SPECIMENOrdering Facility: [facility] Address: [address] [place], [place] [address] Performed By: #### 2 4321-2, , 2776-05 ####[facility]ORATORYCLIA [id number] [place] [address] [place] Chloride [Moles/Vol] 96 mmol/L Low 97-105 [facility] Comment on above: Order Comment: Speci men Type: BLOOD SPECIMENOrdering Facility: [facility] Address: [address] [place] [address] Performed By: #### 2 4321-2, , 2776-05 ####[facility]ORATORYCLIA [id number] [address] STATES OF [facility] CO2 [Moles/Vol] 32 mmol/L High 22-30 [facility] Comment on above: Order Comment: Speci men Type: BLOOD SPECIMENOrdering Facility: [facility] Address: [address] [place] [address] Performed By: #### 2 4321-2, , 2776-05 ####[facility]ORATORYCLIA [id number] [address] Creatinine [Mass/Vol] 0.52 mg/dL Low 0.73-1.22 [facility] Comment on above: Order Comment: Speci men Type: BLOOD SPECIMENOrdering Facility: [facility] Address: [address] [place] [address] Performed By: #### 2 4321-2, , 2776-05 ####[facility]ORATORYCLIA [id number] [address] ESTIMATED GLOMERULAR FILTRATION RATE 109 mL/min/1.73m??? Normal >=60 [facility] Comment on above: Order Comment: Speci men Type: BLOOD SPECIMENOrdering Facility: [facility] Address: [address] [place] [address] Result Comment: Luzmaria mated Glomerular Filtration Rate [...] Performed By: #### 2 4321-2, , 2776-05 ####[facility]ORATORYCLIA [id number] [place] [address] [place] Glucose [Mass/Vol] 119 mg/dL High 74-99 [facility] Comment on above: Order Comment: Shira feldman Type: BLOOD SPECIMENOrdering Facility: [facility] Address: [address] [place], [place] [address] Result Comment: The [place] [employer] (ADA) provides guidance for cutoff [...] Standards of Medical Care in Diabetes 2016, [place] [employer]. Diabetes Care. 2016.39(Suppl 1). Performed By: #### 2 4321-2, , 2776-05 ####[facility]ORATORYCLIA [id number] [place] [address] [place] Potassium [Moles/Vol] 3.7 mmol/L Normal 3.7-5.1 [facility] Comment on above: Order Comment: Shira feldman Type: BLOOD SPECIMENOrdering Facility: [facility] Address: [address] [place] [address] Performed By: #### 2 4321-2, , 2776-05 ####[facility]ORATORYCLIA [id number] [place] [address] [place] Sodium [Moles/Vol] 135 mmol/L Low 136-144 [facility] Comment on above: Order Comment: Shira feldman Type: BLOOD SPECIMENOrdering Facility: [facility] Address: [address] [place] [address] Performed By: #### 2 4321-2, 83096-4, 2771 ####[facility]ORATORYCLIA [id number] [address] [place] [facility] Urea nitrogen [Mass/Vol] 20 mg/dL Normal 9-24 [facility] Comment on above: Order Comment: Speci men Type: BLOOD SPECIMENOrdering Facility: [facility] Address: [address] [place] [address] Performed By: #### 2 4321-2, , 27711-04 ####[facility] LABORATORYCLIA [id number] [address] CASE MANAGEMon 08-12-2021 CASE MANAGEM Normal [facility] CBC W Auto Differential pane l (Bld)on 08-12-2021 Basophils (Bld) [#/Vol] 0.04 10*3/uL Normal <0.11 [facility] Comment on above: Order Comment: Speci men Type: BLOOD SPECIMENOrdering Facility: [facility] Address: [address] [place] [address] Performed By: #### 5 7021-8 ####[facility] LABORATORYCLIA [id number] [address] [place] Basophils/100 WBC (Bld) 0.5 % Normal [facility] Comment on above: Order Comment: Speci men Type: BLOOD SPECIMENOrdering Facility: [facility] Address: [address] [place] [address] Performed By: #### 5 7021-8 ####[facility] LABORATORYCLIA [id number] [address] [place] [facility] Differential cell count method Nom (Bld) Auto Normal [facility] Comment on above: Order Comment: Speci men Type: BLOOD SPECIMENOrdering Facility: [facility] Address: [address] [place] [address] Performed By: #### 5 7021-8 ####[facility]ORATORYCLIA [id number] [address] [place] Eosinophils (Bld) [#/Vol] 0.19 10*3/uL Normal <0.46 [facility] Comment on above: Order Comment: Speci men Type: BLOOD SPECIMENOrdering Facility: [facility] Address: [address] [place] [address] Performed By: #### 5 7021-8 ####[facility] LABORATORYCLIA [id number] [address] [place] Eosinophils/100 WBC (Bld) 2.3 % Normal [facility] Comment on above: Order Comment: Speci men Type: BLOOD SPECIMENOrdering Facility: [facility] Address: [address] [place] [address] Performed By: #### 5 7021-8 ####[facility] LABORATORYCLIA [id number] [address] [place] [facility] Erythrocyte distribution width (RBC) [Ratio] 17.1 % High 11.5-15.0 [facility] Comment on above: Order Comment: Speci men Type: BLOOD SPECIMENOrdering Facility: [facility] Address: [address] [place] [address] Performed By: #### 5 7021-8 ####[facility] LABORATORYCLIA [id number] [address] [place] Hematocrit (Bld) [Volume fraction] 25.3 % Low 39.0-51.0 [facility] Comment on above: Order Comment: Speci men Type: BLOOD SPECIMENOrdering Facility: [facility] Address: [address] [place] [address] Performed By: #### 5 7021-8 ####[facility]ORATORYCLIA [id number] [address] [place] Hemoglobin (Bld) [Mass/Vol] 7.9 g/dL Low 13.0-17.0 [facility] Comment on above: Order Comment: Speci men Type: BLOOD SPECIMENOrdering Facility: [facility] Address: [address] [place] [address] Performed By: #### 5 7021-8 ####[facility]ORATORYCLIA [id number] [address] IMMATURE GRAN % 0.5 % Normal [facility] Comment on above: Order Comment: Speci men Type: BLOOD SPECIMENOrdering Facility: [facility] Address: [address] [place] [address] Performed By: #### 5 7021-8 ####[facility] LABORATORYCLIA [id number] [address] IMMATURE GRAN ABS 0.04 k/uL Normal <0.10 [facility] Comment on above: Order Comment: Speci men Type: BLOOD SPECIMENOrdering Facility: [facility] Address: [address] [place] [address] Performed By: #### 5 7021-8 ####[facility]ORATORYCLIA [id number] [address] Lymphocytes (Bld) [#/Vol] 1.69 10*3/uL Normal 1.00-4.00 [facility] Comment on above: Order Comment: Speci men Type: BLOOD SPECIMENOrdering Facility: [facility] Address: [address] [place] [address] Performed By: #### 5 7021-8 ####[facility]ORATORYCLIA [id number] [address] Lymphocytes/100 WBC (Bld) 20.1 % Normal [facility] Comment on above: Order Comment: Speci men Type: BLOOD SPECIMENOrdering Facility: [facility] Address: [address] [place] [address] Performed By: #### 5 7021-8 ####[facility]ORATORYCLIA [id number] [address] [place] MCH (RBC) [Entitic mass] 28.5 pg Normal 26.0-34.0 [facility] Comment on above: Order Comment: Speci men Type: BLOOD SPECIMENOrdering Facility: [facility] Address: [address] [place] [address] Performed By: #### 5 7021-8 ####[facility] LABORATORYCLIA [id number] [address] [place] MCHC (RBC) [Mass/Vol] 31.2 g/dL Normal 30.5-36.0 [facility] Comment on above: Order Comment: Speci men Type: BLOOD SPECIMENOrdering Facility: [facility] Address: [address] [place] [address] Performed By: #### 5 7021-8 ####[facility]ORATORYCLIA [id number] [address] [place] MCV (RBC) [Entitic vol] 91.3 fL Normal 80.0-100.0 [facility] Comment on above: Order Comment: Speci men Type: BLOOD SPECIMENOrdering Facility: [facility] Address: [address] [place] [address] Performed By: #### 5 7021-8 ####[facility]ORATORYCLIA [id number] [address] [place] Monocytes (Bld) [#/Vol] 0.53 10*3/uL Normal <0.87 [facility] Comment on above: Order Comment: Speci men Type: BLOOD SPECIMENOrdering Facility: [facility] Address: [address] [place] [address] Performed By: #### 5 7021-8 ####[facility]ORATORYCLIA [id number] [address] Monocytes/100 WBC (Bld) 6.3 % Normal [facility] Comment on above: Order Comment: Speci men Type: BLOOD SPECIMENOrdering Facility: [facility] Address: [address] [place] [address] Performed By: #### 5 7021-8 ####[facility] LABORATORYCLIA [id number] [address] [place] Neutrophils (Bld) [#/Vol] 5.90 10*3/uL Normal 1.45-7.50 [facility] Comment on above: Order Comment: Speci men Type: BLOOD SPECIMENOrdering Facility: [facility] Address: [address] [place] [address] Performed By: #### 5 7021-8 ####[facility]ORATORYCLIA [id number] [address] [place] Neutrophils/100 WBC (Bld) 70.3 % Normal [facility] Comment on above: Order Comment: Speci men Type: BLOOD SPECIMENOrdering Facility: [facility] Address: [address] [place] [address] Performed By: #### 5 7021-8 ####[facility]ORATORYCLIA [id number] [address] [place] Nucleated RBC (Bld) [#/Vol] 10*3/uL Normal <0.01 [facility] Comment on above: Order Comment: Speci men Type: BLOOD SPECIMENOrdering Facility: [facility] Address: [address] [place] [address] Performed By: #### 5 7021-8 ####[facility]ORATORYCLIA [id number] [address] [place] Nucleated RBC/100 WBC (Bld) [Ratio] 0.0 /100 WBC Normal [facility] Comment on above: Order Comment: Speci men Type: BLOOD SPECIMENOrdering Facility: [facility] Address: [address] [place] [address] Performed By: #### 5 7021-8 ####[facility]ORATORYCLIA [id number] [address] [place] Platelet mean volume (Bld) [Entitic vol] 9.8 fL Normal 9.0-12.7 [facility] Comment on above: Order Comment: Speci men Type: BLOOD SPECIMENOrdering Facility: [facility] Address: [address] [place] [address] Performed By: #### 5 7021-8 ####[facility]ORATORYCLIA [id number] [address] Platelets (Bld) [#/Vol] 164 10*3/uL Normal 150-400 [facility] Comment on above: Order Comment: Speci men Type: BLOOD SPECIMENOrdering Facility: [facility] Address: [address] [place] [address] Performed By: #### 5 7021-8 ####[facility]ORATORYCLIA [id number] [address] [place] RBC (Bld) [#/Vol] 2.77 10*6/uL Low 4.20-6.00 [facility] Comment on above: Order Comment: Speci men Type: BLOOD SPECIMENOrdering Facility: [facility] Address: [address] [place] [address] Performed By: #### 5 7021-8 ####[facility]ORATORYCLIA [id number] [address] WBC (Bld) [#/Vol] 8.39 10*3/uL Normal 3.70-11.00 [facility] Comment on above: Order Comment: Speci men Type: BLOOD SPECIMENOrdering Facility: [facility] Address: [address] [place] [address] Performed By: #### 5 7021-8 ####[facility]ORATORYCLIA [id number] [address] BRAIN WO IVCONon 08-13-19 CT BRAIN WO IVCON Normal [facility] CT BRAIN WO IVCON Normal [facility] Magnesium SerPl-mCncon 08-12 Magnesium [Mass/Vol] 2.0 mg/dL Normal 1.7-2.3 [facility] Comment on above: Order Comment: Speci men Type: BLOOD SPECIMENOrdering Facility: [facility] Address: [address] [place] [address] Performed By: #### 2 4321-2, 93910-8, 2777-1 ####[facility]ORATORYCLIA [id number] [address] Phosphate SerPl-mCncon 08-12 Phosphate [Mass/Vol] 2.9 mg/dL Normal 2.7-4.8 [facility] Comment on above: Order Comment: Speci men Type: BLOOD SPECIMENOrdering Facility: [facility] Address: [address] [place] [address] Performed By: #### 2 4321-2, 65053-0, 2777-1 ####[facility]ORATORYCLIA [id number] [address] THERAPY NTon 08-12-2021 THERAPY NT Normal [facility] THERAPY NT Normal [facility] aPTT PPPon 08-12-2021 aPTT Coag (PPP) [Time] 94.2 s High 23.0-32.4 [facility] Comment on above: Order Comment: Speci men Type: BLOOD SPECIMENOrdering Facility: [facility] Address: [address] [place] [address] Performed By: #### 1 4979-9 ####[facility]ORATORYCLIA [id number] [address] aPTT Coag (PPP) [Time] 84.4 s High 23.0-32.4 [facility] Comment on above: Order Comment: Speci men Type: BLOOD SPECIMENOrdering Facility: [facility] Address: [address] [place] [address] Performed By: #### 1 4979-9 ####[facility]ORATORYCLIA [id number] [address] aPTT Coag (PPP) [Time] 71.3 s High 23.0-32.4 [facility] Comment on above: Order Comment: Speci men Type: BLOOD SPECIMENOrdering Facility: [facility] Address: [address] [place] [address] Performed By: #### 1 4979-9 ####[facility]ORATORYCLIA [id number] [address] [place] ALLIED HEALTHon 08-11-2021 ALLIED HEALTH Normal [facility] CBC W Auto Differential pane l (Bld)on 08-11-2021 Basophils (Bld) [#/Vol] 10*3/uL Normal <0.11 [facility] Comment on above: Order Comment: Speci men Type: BLOOD SPECIMENOrdering Facility: [facility] Address: [address] [place] [address] Performed By: #### 5 7021-8 ####[facility]ORATORYCLIA [id number] [address] Basophils/100 WBC (Bld) 0.2 % Normal [facility] Comment on above: Order Comment: Speci men Type: BLOOD SPECIMENOrdering Facility: [facility] Address: [address] [place] [address] Performed By: #### 5 7021-8 ####[facility]ORATORYCLIA [id number] [address] Differential cell count method Nom (Bld) Auto Normal [facility] Comment on above: Order Comment: Speci men Type: BLOOD SPECIMENOrdering Facility: [facility] Address: [address] [place] [address] Performed By: #### 5 7021-8 ####[facility]ORATORYCLIA [id number] [address] [place] Eosinophils (Bld) [#/Vol] 0.16 10*3/uL Normal <0.46 [facility] Comment on above: Order Comment: Speci men Type: BLOOD SPECIMENOrdering Facility: [facility] Address: [address] [place] [address] Performed By: #### 5 7021-8 ####[facility]ORATORYCLIA [id number] [address] [place] Eosinophils/100 WBC (Bld) 1.8 % Normal [facility] Comment on above: Order Comment: Speci men Type: BLOOD SPECIMENOrdering Facility: [facility] Address: [address] [place] [address] Performed By: #### 5 7021-8 ####[facility]ORATORYCLIA [id number] [address] Erythrocyte distribution width (RBC) [Ratio] 17.3 % High 11.5-15.0 [facility] Comment on above: Order Comment: Speci men Type: BLOOD SPECIMENOrdering Facility: [facility] Address: [address] [place] [address] Performed By: #### 5 7021-8 ####[facility]ORATORYCLIA [id number] [address] Hematocrit (Bld) [Volume fraction] 26.6 % Low 39.0-51.0 [facility] Comment on above: Order Comment: Speci men Type: BLOOD SPECIMENOrdering Facility: [facility] Address: [address] [place] [address] Performed By: #### 5 7021-8 ####[facility]ORATORYCLIA [id number] [address] Hemoglobin (Bld) [Mass/Vol] 8.2 g/dL Low 13.0-17.0 [facility] Comment on above: Order Comment: Speci men Type: BLOOD SPECIMENOrdering Facility: [facility] Address: [address] [place] [address] Performed By: #### 5 7021-8 ####[facility]ORATORYCLIA [id number] [address] IMMATURE GRAN % 0.6 % Normal [facility] Comment on above: Order Comment: Speci men Type: BLOOD SPECIMENOrdering Facility: [facility] Address: [address] [place] [address] Performed By: #### 5 7021-8 ####[facility]ORATORYCLIA [id number] [address] IMMATURE GRAN ABS 0.05 k/uL Normal <0.10 [facility] Comment on above: Order Comment: Speci men Type: BLOOD SPECIMENOrdering Facility: [facility] Address: [address] [place] [address] Performed By: #### 5 7021-8 ####[facility]ORATORYCLIA [id number] [address] [place] Lymphocytes (Bld) [#/Vol] 1.40 10*3/uL Normal 1.00-4.00 [facility] Comment on above: Order Comment: Speci men Type: BLOOD SPECIMENOrdering Facility: [facility] Address: [address] [place] [address] Performed By: #### 5 7021-8 ####[facility]ORATORYCLIA [id number] [address] Lymphocytes/100 WBC (Bld) 15.8 % Normal [facility] Comment on above: Order Comment: Speci men Type: BLOOD SPECIMENOrdering Facility: [facility] Address: [address] [place] [address] Performed By: #### 5 7021-8 ####[facility]ORATORYCLIA [id number] [address] MCH (RBC) [Entitic mass] 28.4 pg Normal 26.0-34.0 [facility] Comment on above: Order Comment: Speci men Type: BLOOD SPECIMENOrdering Facility: [facility] Address: [address] [place] [address] Performed By: #### 5 7021-8 ####[facility]ORATORYCLIA [id number] [address] MCHC (RBC) [Mass/Vol] 30.8 g/dL Normal 30.5-36.0 [facility] Comment on above: Order Comment: Speci men Type: BLOOD SPECIMENOrdering Facility: [facility] Address: [address] [address] Performed By: #### 5 7021-8 ####[facility]ORATORYCLIA [id number] [address] [place] MCV (RBC) [Entitic vol] 92.0 fL Normal 80.0-100.0 [facility] Comment on above: Order Comment: Speci men Type: BLOOD SPECIMENOrdering Facility: [facility] Address: [address] [place] [address] Performed By: #### 5 7021-8 ####[facility]ORATORYCLIA [id number] [address] [place] Monocytes (Bld) [#/Vol] 0.61 10*3/uL Normal <0.87 [facility] Comment on above: Order Comment: Speci men Type: BLOOD SPECIMENOrdering Facility: [facility] Address: [address] [place] [address] Performed By: #### 5 7021-8 ####[facility]ORATORYCLIA [id number] [address] [place] [facility] Monocytes/100 WBC (Bld) 6.9 % Normal [facility] Comment on above: Order Comment: Speci men Type: BLOOD SPECIMENOrdering Facility: [facility] Address: [address] [place] [address] Performed By: #### 5 7021-8 ####[facility]ORATORYCLIA [id number] [address] [place] Neutrophils (Bld) [#/Vol] 6.62 10*3/uL Normal 1.45-7.50 [facility] Comment on above: Order Comment: Speci men Type: BLOOD SPECIMENOrdering Facility: [facility] Address: [address] [place] [address] Performed By: #### 5 7021-8 ####[facility]ORATORYCLIA [id number] [address] [place] Neutrophils/100 WBC (Bld) 74.7 % Normal [facility] Comment on above: Order Comment: Speci men Type: BLOOD SPECIMENOrdering Facility: [facility] Address: [address] [address] Performed By: #### 5 7021-8 ####[facility]ORATORYCLIA [id number] [address] [place] Nucleated RBC (Bld) [#/Vol] 10*3/uL Normal <0.01 [facility] Comment on above: Order Comment: Speci men Type: BLOOD SPECIMENOrdering Facility: [facility] Address: [address] [place] [address] Performed By: #### 5 7021-8 ####[facility]ORATORYCLIA [id number] [address] [place] Nucleated RBC/100 WBC (Bld) [Ratio] 0.0 /100 WBC Normal [facility] Comment on above: Order Comment: Speci men Type: BLOOD SPECIMENOrdering Facility: [facility] Address: [address] [place] [address] Performed By: #### 5 7021-8 ####[facility]ORATORYCLIA [id number] [address] [place] Platelet mean volume (Bld) [Entitic vol] 9.8 fL Normal 9.0-12.7 [facility] Comment on above: Order Comment: Speci men Type: BLOOD SPECIMENOrdering Facility: [facility] Address: [address] [place], [place] [address] Performed By: #### 5 7021-8 ####[facility]ORATORYCLIA [id number] [address] [place] Platelets (Bld) [#/Vol] 157 10*3/uL Normal 150-400 [facility] Comment on above: Order Comment: Speci men Type: BLOOD SPECIMENOrdering Facility: [facility] Address: [address] [place] [address] Performed By: #### 5 7021-8 ####[facility]ORATORYCLIA [id number] [address] OF [facility] RBC (Bld) [#/Vol] 2.89 10*6/uL Low 4.20-6.00 [facility] Comment on above: Order Comment: Speci men Type: BLOOD SPECIMENOrdering Facility: [facility] Address: [address] [place] [address] Performed By: #### 5 7021-8 ####[facility]ORATORYCLIA [id number] [address] OF [facility] WBC (Bld) [#/Vol] 8.86 10*3/uL Normal 3.70-11.00 [facility] Comment on above: Order Comment: Speci men Type: BLOOD SPECIMENOrdering Facility: [facility] Address: [address] [place] [address] Performed By: #### 5 7021-8 ####[facility] LABORATORYCLIA [id number] [address] CBC panel Auto (Bld)on 08-11 Erythrocyte distribution width (RBC) [Ratio] 17.2 % High 11.5-15.0 [facility] Comment on above: Order Comment: Speci men Type: BLOOD SPECIMENOrdering Facility: [facility] Address: [address] [place] [address] Performed By: #### 5 8410-2 ####[facility]ORATORYCLIA [id number] [address] Hematocrit (Bld) [Volume fraction] 27.0 % Low 39.0-51.0 [facility] Comment on above: Order Comment: Speci men Type: BLOOD SPECIMENOrdering Facility: [facility] Address: [address] [place] [address] Performed By: #### 5 8410-2 ####[facility] LABORATORYCLIA [id number] [address] OF [facility] Hemoglobin (Bld) [Mass/Vol] 8.3 g/dL Low 13.0-17.0 [facility] Comment on above: Order Comment: Speci men Type: BLOOD SPECIMENOrdering Facility: [facility] Address: [address] [place] [address] Performed By: #### 5 8410-2 ####[facility]ORATORYCLIA [id number] [address] MCH (RBC) [Entitic mass] 28.7 pg Normal 26.0-34.0 [facility] Comment on above: Order Comment: Speci men Type: BLOOD SPECIMENOrdering Facility: [facility] Address: [address] [place] [address] Performed By: #### 5 8410-2 ####[facility] LABORATORYCLIA [id number] [address] MCHC (RBC) [Mass/Vol] 30.7 g/dL Normal 30.5-36.0 [facility] Comment on above: Order Comment: Speci men Type: BLOOD SPECIMENOrdering Facility: [facility] Address: [address] [place] [address] Performed By: #### 5 8410-2 ####[facility]ORATORYCLIA [id number] [address] MCV (RBC) [Entitic vol] 93.4 fL Normal 80.0-100.0 [facility] Comment on above: Order Comment: Speci men Type: BLOOD SPECIMENOrdering Facility: [facility] Address: [address] [place] [address] Performed By: #### 5 8410-2 ####[facility] LABORATORYCLIA [id number] [address] Nucleated RBC (Bld) [#/Vol] 10*3/uL Normal <0.01 [facility] Comment on above: Order Comment: Speci men Type: BLOOD SPECIMENOrdering Facility: [facility] Address: [address] [place] [address] Performed By: #### 5 8410-2 ####[facility] LABORATORYCLIA [id number] [address] Platelet mean volume (Bld) [Entitic vol] 9.8 fL Normal 9.0-12.7 [facility] Comment on above: Order Comment: Speci men Type: BLOOD SPECIMENOrdering Facility: [facility] Address: [address] [place] [address] Performed By: #### 5 8410-2 ####[facility]ORATORYCLIA [id number] [address] [place] Platelets (Bld) [#/Vol] 169 10*3/uL Normal 150-400 [facility] Comment on above: Order Comment: Speci men Type: BLOOD SPECIMENOrdering Facility: [facility] Address: [address] [place] [address] Performed By: #### 5 8410-2 ####[facility]ORATORYCLIA [id number] [address] STATES OF [facility] RBC (Bld) [#/Vol] 2.89 10*6/uL Low 4.20-6.00 [facility] Comment on above: Order Comment: Speci men Type: BLOOD SPECIMENOrdering Facility: [facility] Address: [address] [place] [address] Performed By: #### 5 8410-2 ####[facility] LABORATORYCLIA [id number] [address] [place] WBC (Bld) [#/Vol] 9.03 10*3/uL Normal 3.70-11.00 [facility] Comment on above: Order Comment: Speci men Type: BLOOD SPECIMENOrdering Facility: [facility] Address: [address] [place] [address] Performed By: #### 5 8410-2 ####[facility] LABORATORYCLIA [id number] [address] [facility] CT BRAIN WO IVCONon 08-12-19 CT BRAIN WO IVCON Normal [facility] PT panel Coag (PPP)on 2021 INR Coag (PPP) [Relative time] 1.0 {INR} Normal 0.9-1.3 [facility] Comment on above: Order Comment: Shira feldman Type: BLOOD SPECIMENOrdering Facility: [facility] Address: [address] [id number] Result Comment: Yris min K Antagonist (VKA) Therapeutic Range: INR 2 to 3 (Target INR of 2.5)Note: For patients treated with VKA drugs, such as warfarin, the [place] [employer] 2012 Guideline recommends [...] al. Chest 2012, 141:7S-47SNishimpatricia RA, et al. [facility] 2017, 70: 252-289 Performed By: #### 1 4979-9, 23078-3 ####[facility] LABORATORYCLIA [id number] [place] [address] [place] PT Coag (PPP) [Time] 11.4 s Normal 9.7-13.0 [facility] Comment on above: Order Comment: Shira feldman Type: BLOOD SPECIMENOrdering Facility: [facility] Address: [address] [place] [address] Performed By: #### 1 4979-9, 89590-2 ####[facility] LABORATORYCLIA [id number] [place] [address] [place] THERAPY NTon 08-11-2021 [...] Comment: Speci men Type: BLOOD SPECIMENOrdering Facility: [facility] Address: [address] [place] [address] Performed By: #### 1 4979-9, 56334-3 ####[facility] LABORATORYCLIA [id number] [place] [address] [place] Basic metabolic 2000 panelon 08-10-2021 Anion gap [Moles/Vol] 11 mmol/L Normal 9-18 [facility] Comment on above: Order Comment: Speci men Type: BLOOD SPECIMENOrdering Facility: [facility] Address: [address] [place] [address] Performed By: #### 2 4321-2 ####[facility] LABORATORYCLIA [id number] [place] [address] [place] Calcium [Mass/Vol] 8.7 mg/dL Normal 8.5-10.2 [facility] Comment on above: Order Comment: Speci men Type: BLOOD SPECIMENOrdering Facility: [facility] Address: [address] [place] [address] Performed By: #### 2 4321-2 ####[facility] LABORATORYCLIA [id number] [place] [address] [place] Chloride [Moles/Vol] 98 mmol/L Normal 97-105 [facility] Comment on above: Order Comment: Speci men Type: BLOOD SPECIMENOrdering Facility: [facility] Address: [address] [place] [address] Performed By: #### 2 4321-2 ####[facility]ORATORYCLIA [id number] [place] [address] [place] CO2 [Moles/Vol] 28 mmol/L Normal 22-30 [facility] Comment on above: Order Comment: Speci men Type: BLOOD SPECIMENOrdering Facility: [facility] Address: [address] [place] [address] Performed By: #### 2 4321-2 ####[facility] LABORATORYCLIA [id number] [address] STATES OF [facility] Creatinine [Mass/Vol] 0.59 mg/dL Low 0.73-1.22 [facility] Comment on above: Order Comment: Shira feldman Type: BLOOD SPECIMENOrdering Facility: [facility] Address: [address] [place] [address] Performed By: #### 2 4321-2 ####[facility] LABORATORYCLIA [id number] [address] ESTIMATED GLOMERULAR FILTRATION RATE 105 mL/min/1.73m??? Normal >=60 [facility] Comment on above: Order Comment: Shira feldman Type: BLOOD SPECIMENOrdering Facility: [facility] Address: [address] [place] [address] Result Comment: Luzmaria mated Glomerular Filtration Rate [...] actual GFR. Performed By: #### 2 4321-2 ####[facility] LABORATORYCLIA [id number] [address] STATES OF [facility] Glucose [Mass/Vol] 118 mg/dL High 74-99 [facility] Comment on above: Order Comment: Shira francia Type: BLOOD SPECIMENOrdering Facility: [facility] Address: [address] [place] [address] Result Comment: The [place] Diabetes Association (ADA) provides guidance for cutoff [...] Standards of Medical Care in Diabetes 2016, [place] [employer]. Diabetes Care. 2016.39(Suppl 1). Performed By: #### 2 4321-2 ####[facility]ORATORYCLIA [id number] [place] [address] [place] Potassium [Moles/Vol] 3.7 mmol/L Normal 3.7-5.1 [facility] Comment on above: Order Comment: Speci men Type: BLOOD SPECIMENOrdering Facility: [facility] Address: [address] [place] [address] Performed By: #### 2 4321-2 ####[facility]ORATORYCLIA [id number] [place] [address] [place] Sodium [Moles/Vol] 137 mmol/L Normal 136-144 [facility] Comment on above: Order Comment: Speci men Type: BLOOD SPECIMENOrdering Facility: [facility] Address: [address] [place] [address] Performed By: #### 2 4321-2 ####[facility]ORATORYCLIA [id number] [place] [address] [place] Urea nitrogen [Mass/Vol] 23 mg/dL Normal 9-24 [facility] Comment on above: Order Comment: Speci men Type: BLOOD SPECIMENOrdering Facility: [facility] Address: [address] [place] [address] Performed By: #### 2 4321-2 ####[facility]ORATORYCLIA [id number] [place] [address] [place] Anion gap [Moles/Vol] 17 mmol/L Normal 9-18 [facility] Comment on above: Order Comment: Speci men Type: BLOOD SPECIMENOrdering Facility: [facility] Address: [address] [place] [address] Performed By: #### 1 9123-9, 2777-1, 18345-3 ####[facility]ORATORYCLIA [id number] [place] [address] [place] Calcium [Mass/Vol] 7.7 mg/dL Low 8.5-10.2 [facility] Comment on above: Order Comment: Speci men Type: BLOOD SPECIMENOrdering Facility: [facility] Address: [address] [place] [address] Performed By: #### 1 9123-9, 27711-04, 48566-0 ####[facility]ORATORYCLIA [id number] [place] [address] [place] Chloride [Moles/Vol] 86 mmol/L Low 97-105 [facility] Comment on above: Order Comment: Speci men Type: BLOOD SPECIMENOrdering Facility: [facility] Address: [address] [place] [address] Performed By: #### 1 9123-9, 27711-04, 67390-8 ####[facility]ORATORYCLIA [id number] [address] [place] CO2 [Moles/Vol] 24 mmol/L Normal 22-30 [facility] Comment on above: Order Comment: Speci men Type: BLOOD SPECIMENOrdering Facility: [facility] Address: [address] [place] [address] Performed By: #### 1 9123-9, 27711-04, 84321-2 ####[facility]ORATORYCLIA [id number] [place] [address] [place] Creatinine [Mass/Vol] 0.53 mg/dL Low 0.73-1.22 [facility] Comment on above: Order Comment: Speci men Type: BLOOD SPECIMENOrdering Facility: [facility] Address: [address] [place] [address] Performed By: #### 1 9123-9, 27711-04, 80465-0 ####[facility]ORATORYCLIA [id number] [address] [place] ESTIMATED GLOMERULAR FILTRATION RATE 108 mL/min/1.73m??? Normal >=60 [facility] Comment on above: Order Comment: Shira feldman Type: BLOOD SPECIMENOrdering Facility: [facility] Address: [address] [place] [address] Result Comment: Luzmaria mated Glomerular Filtration Rate [...] GFR. Performed By: #### 1 9123-9, 2777-1, 88354-2 ####[facility]CLIA [id number] [place] [address] [place] Glucose [Mass/Vol] 455 mg/dL High 74-99 [facility] Comment on above: Order Comment: Shira feldman Type: BLOOD SPECIMENOrdering Facility: [facility] Address: [address] [place] [address] Result Comment: The [place] Diabetes Association (ADA) provides guidance for cutoff [...] Standards of Medical Care in Diabetes 2016, [place] [employer]. Diabetes Care. 2016.39(Suppl 1). Performed By: #### 1 9123-9, 2777-1, 25386-3 ####[facility]ORATORYCLIA [id number] [place] [address] [place] Potassium [Moles/Vol] 3.4 mmol/L Low 3.7-5.1 [facility] Comment on above: Order Comment: Shira [facility] Type: BLOOD SPECIMENOrdering Facility: [facility] Address: [address] [place] [address] Performed By: #### 1 9123-9, 2777-1, 08557-6 ####[facility]ORATORYCLIA [id number] [address] [place] Sodium [Moles/Vol] 127 mmol/L Low 136-144 [facility] Comment on above: Order Comment: Speci men Type: BLOOD SPECIMENOrdering Facility: [facility] Address: [address] [place] [address] Performed By: #### 1 9123-9, 2777-1, 45822-0 ####[facility]ORATORYCLIA [id number] [address] [place] Urea nitrogen [Mass/Vol] 21 mg/dL Normal 9-24 [facility] Comment on above: Order Comment: Speci men Type: BLOOD SPECIMENOrdering Facility: [facility] Address: [address] [place] [address] Performed By: #### 1 9123-9, 2777-, 89831-0 ####[facility]ORATORYCLIA [id number] [address] [place] CASE MANAGEMon 08-10-2021 CASE MANAGEM Normal [facility] CBC W Auto Differential pane l (Bld)on 08-10-2021 Basophils (Bld) [#/Vol] 0.04 10*3/uL Normal <0.11 [facility] Comment on above: Order Comment: Speci men Type: BLOOD SPECIMENOrdering Facility: [facility] Address: [address] [place] [address] Performed By: #### 5 7021-8 ####[facility]ORATORYCLIA [id number] [address] [place] Basophils/100 WBC (Bld) 0.4 % Normal [facility] Comment on above: Order Comment: Speci men Type: BLOOD SPECIMENOrdering Facility: [facility] Address: [address] [place] [address] Performed By: #### 5 7021-8 ####[facility]ORATORYCLIA [id number] [address] Differential cell count method Nom (Bld) Auto Normal [facility] Comment on above: Order Comment: Speci men Type: BLOOD SPECIMENOrdering Facility: [facility] Address: [address] [place] [address] Performed By: #### 5 7021-8 ####[facility]ORATORYCLIA [id number] [address] Eosinophils (Bld) [#/Vol] 0.11 10*3/uL Normal <0.46 [facility] Comment on above: Order Comment: Speci men Type: BLOOD SPECIMENOrdering Facility: [facility] Address: [address] [place] [address] Performed By: #### 5 7021-8 ####[facility]ORATORYCLIA [id number] [address] Eosinophils/100 WBC (Bld) 1.1 % Normal [facility] Comment on above: Order Comment: Speci men Type: BLOOD SPECIMENOrdering Facility: [facility] Address: [address] [place] [address] Performed By: #### 5 7021-8 ####[facility]ORATORYCLIA [id number] [address] Erythrocyte distribution width (RBC) [Ratio] 17.2 % High 11.5-15.0 [facility] Comment on above: Order Comment: Speci men Type: BLOOD SPECIMENOrdering Facility: [facility] Address: [address] [place] [address] Performed By: #### 5 7021-8 ####[facility]ORATORYCLIA [id number] [address] Hematocrit (Bld) [Volume fraction] 25.5 % Low 39.0-51.0 [facility] Comment on above: Order Comment: Speci men Type: BLOOD SPECIMENOrdering Facility: [facility] Address: [address] [place] [address] Performed By: #### 5 7021-8 ####[facility]ORATORYCLIA [id number] [address] Hemoglobin (Bld) [Mass/Vol] 7.9 g/dL Low 13.0-17.0 [facility] Comment on above: Order Comment: Speci men Type: BLOOD SPECIMENOrdering Facility: [facility] Address: [address] [place] [address] Performed By: #### 5 7021-8 ####[facility]ORATORYCLIA [id number] [address] IMMATURE GRAN % 0.4 % Normal [facility] Comment on above: Order Comment: Speci men Type: BLOOD SPECIMENOrdering Facility: [facility] Address: [address] [place] [address] Performed By: #### 5 7021-8 ####[facility]ORATORYCLIA [id number] [address] IMMATURE GRAN ABS 0.04 k/uL Normal <0.10 [facility] Comment on above: Order Comment: Speci men Type: BLOOD SPECIMENOrdering Facility: [facility] Address: [address] [place] [address] Performed By: #### 5 7021-8 ####[facility]ORATORYCLIA [id number] [address] Lymphocytes (Bld) [#/Vol] 1.66 10*3/uL Normal 1.00-4.00 [facility] Comment on above: Order Comment: Speci men Type: BLOOD SPECIMENOrdering Facility: [facility] Address: [address] [place] [address] Performed By: #### 5 7021-8 ####[facility]ORATORYCLIA [id number] [address] Lymphocytes/100 WBC (Bld) 16.2 % Normal [facility] Comment on above: Order Comment: Speci men Type: BLOOD SPECIMENOrdering Facility: [facility] Address: [address] [place] [address] Performed By: #### 5 7021-8 ####[facility]ORATORYCLIA [id number] [address] MCH (RBC) [Entitic mass] 28.5 pg Normal 26.0-34.0 [facility] Comment on above: Order Comment: Speci men Type: BLOOD SPECIMENOrdering Facility: [facility] Address: [address] [place] [address] Performed By: #### 5 7021-8 ####[facility]ORATORYCLIA [id number] [address] MCHC (RBC) [Mass/Vol] 31.0 g/dL Normal 30.5-36.0 [facility] Comment on above: Order Comment: Speci men Type: BLOOD SPECIMENOrdering Facility: [facility] Address: [address] [place] [address] Performed By: #### 5 7021-8 ####[facility]ORATORYCLIA [id number] [address] MCV (RBC) [Entitic vol] 92.1 fL Normal 80.0-100.0 [facility] Comment on above: Order Comment: Speci men Type: BLOOD SPECIMENOrdering Facility: [facility] Address: [address] [place] [address] Performed By: #### 5 7021-8 ####[facility]ORATORYCLIA [id number] [address] Monocytes (Bld) [#/Vol] 0.51 10*3/uL Normal <0.87 [facility] Comment on above: Order Comment: Speci men Type: BLOOD SPECIMENOrdering Facility: [facility] Address: [address] [place] [address] Performed By: #### 5 7021-8 ####[facility]CLIA [id number] [address] [place] Monocytes/100 WBC (Bld) 5.0 % Normal [facility] Comment on above: Order Comment: Speci men Type: BLOOD SPECIMENOrdering Facility: [facility] Address: [address] [place] [address] Performed By: #### 5 7021-8 ####[facility]ORATORYCLIA [id number] [place] [address] [place] Neutrophils (Bld) [#/Vol] 7.91 10*3/uL High 1.45-7.50 [facility] Comment on above: Order Comment: Speci men Type: BLOOD SPECIMENOrdering Facility: [facility] Address: [address] [place] [address] Performed By: #### 5 7021-8 ####[facility]ORATORYCLIA [id number] [address] Neutrophils/100 WBC (Bld) 76.9 % Normal [facility] Comment on above: Order Comment: Speci men Type: BLOOD SPECIMENOrdering Facility: [facility] Address: [address] [place] [address] Performed By: #### 5 7021-8 ####[facility]ORATORYCLIA [id number] [address] [place] Nucleated RBC (Bld) [#/Vol] 10*3/uL Normal <0.01 [facility] Comment on above: Order Comment: Speci men Type: BLOOD SPECIMENOrdering Facility: [facility] Address: [address] [place] [address] Performed By: #### 5 7021-8 ####[facility]ORATORYCLIA [id number] [address] [place] Nucleated RBC/100 WBC (Bld) [Ratio] 0.0 /100 WBC Normal [facility] Comment on above: Order Comment: Speci men Type: BLOOD SPECIMENOrdering Facility: [facility] Address: [address] Performed By: #### 5 7021-8 ####[facility]ORATORYCLIA [id number] [address] Platelet mean volume (Bld) [Entitic vol] 10.3 fL Normal 9.0-12.7 [facility] Comment on above: Order Comment: Speci men Type: BLOOD SPECIMENOrdering Facility: [facility] Address: [address] [place], [place] [address] Performed By: #### 5 7021-8 ####[facility]ORATORYCLIA [id number] [address] [place] Platelets (Bld) [#/Vol] 152 10*3/uL Normal 150-400 [facility] Comment on above: Order Comment: Speci men Type: BLOOD SPECIMENOrdering Facility: [facility] Address: [address] [place], [place] [address] Performed By: #### 5 7021-8 ####[facility]ORATORYCLIA [id number] [address] [place] RBC (Bld) [#/Vol] 2.77 10*6/uL Low 4.20-6.00 [facility] Comment on above: Order Comment: Speci men Type: BLOOD SPECIMENOrdering Facility: [facility] Address: [address] [place], [place] [address] Performed By: #### 5 7021-8 ####[facility]ORATORYCLIA [id number] [address] [place] WBC (Bld) [#/Vol] 10.27 10*3/uL Normal 3.70-11.00 [facility] Comment on above: Order Comment: Speci men Type: BLOOD SPECIMENOrdering Facility: [facility] Address: [address] [place], [place] [address] Performed By: #### 5 7021-8 ####[facility]ORATORYCLIA [id number] [address] Magnesium SerPl-mCncon 08-10 Magnesium [Mass/Vol] 1.8 mg/dL Normal 1.7-2.3 [facility] Comment on above: Order Comment: Speci men Type: BLOOD SPECIMENOrdering Facility: [facility] Address: [address] [place] [address] Performed By: #### 1 9123-9, 2777-1, 75158-0 ####[facility]ORATORYCLIA [id number] [address] NURSING PROGon 08-10-2021 NURSING PROG Normal [facility] NURSING PROG Normal [facility] NUTRITIONon 08-10-2021 NUTRITION Normal [facility] Phosphate SerPl-mCncon 08-10 Phosphate [Mass/Vol] 3.7 mg/dL Normal 2.7-4.8 [facility] Comment on above: Order Comment: Speci men Type: BLOOD SPECIMENOrdering Facility: [facility] Address: [address] [place] [address] Performed By: #### 1 9123-9, 2777-1, 67470-2 ####[facility]ORATORYCLIA [id number] [address] ALLIED HEALTHon 08-09-2021 ALLIED HEALTH Normal [...] Comment: Speci men Type: BLOOD SPECIMENOrdering Facility: [facility] Address: [address] [place] [address] Performed By: #### 2 4321-2, 15105-3, 2777-1 ####[facility]ORATORYCLIA [id number] [address] STATES OF [facility] Calcium [Mass/Vol] 9.2 mg/dL Normal 8.5-10.2 [facility] Comment on above: Order Comment: Speci men Type: BLOOD SPECIMENOrdering Facility: [facility] Address: [address] [place] [address] Performed By: #### 2 4321-2, , 2776-05 ####[facility]ORATORYCLIA [id number] [place] [address] [place] Chloride [Moles/Vol] 97 mmol/L Normal 97-105 [facility] Comment on above: Order Comment: Speci men Type: BLOOD SPECIMENOrdering Facility: [facility] Address: [address] [place] [address] Performed By: #### 2 4321-2, , 2776-05 ####[facility]ORATORYCLIA [id number] [address] STATES OF [facility] CO2 [Moles/Vol] 30 mmol/L Normal 22-30 [facility] Comment on above: Order Comment: Speci men Type: BLOOD SPECIMENOrdering Facility: [facility] Address: [address] [place] [address] Performed By: #### 2 4321-2, , 2776-05 ####[facility]ORATORYCLIA [id number] [address] [place] Creatinine [Mass/Vol] 0.51 mg/dL Low 0.73-1.22 [facility] Comment on above: Order Comment: Speci men Type: BLOOD SPECIMENOrdering Facility: [facility] Address: [address] [place] [address] Performed By: #### 2 4321-2, , 2776-05 ####[facility]ORATORYCLIA [id number] [address] [place] ESTIMATED GLOMERULAR FILTRATION RATE 110 mL/min/1.73m??? Normal >=60 [facility] Comment on above: Order Comment: Shira feldman Type: BLOOD SPECIMENOrdering Facility: [facility] Address: [address] [place] [address] Result Comment: Luzmaria mated Glomerular Filtration Rate [...] actual GFR. Performed By: #### 2 4321-2, 71623-5, 2776-05 ####[facility]ORATORYCLIA [id number] [place] [address] [place] Glucose [Mass/Vol] 106 mg/dL High 74-99 [facility] Comment on above: Order Comment: Shira feldman Type: BLOOD SPECIMENOrdering Facility: [facility] Address: [address] [place] [address] Result Comment: The [place] Diabetes [employer] (ADA) provides guidance for cutoff [...] Standards of Medical Care in Diabetes 2016, [place] [employer]. Diabetes Care. 2016.39(Suppl 1). Performed By: #### 2 4321-2, , 2776-05 ####[facility]ORATORYCLIA [id number] [place] [address] [place] Potassium [Moles/Vol] 4.1 mmol/L Normal 3.7-5.1 [facility] Comment on above: Order Comment: Shira feldman Type: BLOOD SPECIMENOrdering Facility: [facility] Address: [address] [place] [address] Performed By: #### 2 4321-2, , 1 ####[facility]ORATORYCLIA [id number] [address] STATES OF [facility] Sodium [Moles/Vol] 135 mmol/L Low 136-144 [facility] Comment on above: Order Comment: Speci men Type: BLOOD SPECIMENOrdering Facility: [facility] Address: [address] [place] [address] Performed By: #### 2 4321-2, , 2776-05 ####[facility]ATORYCLIA [id number] [address] [place] Urea nitrogen [Mass/Vol] 26 mg/dL High 9-24 [facility] Comment on above: Order Comment: Speci men Type: BLOOD SPECIMENOrdering Facility: [facility] Address: [address] [place] [address] Performed By: #### 2 4321-2, , 2776-05 ####[facility]ATORYCLIA [id number] [address] [place] CBC W Auto Differential pane l (Bld)on 08-09-2021 Basophils (Bld) [#/Vol] 0.06 10*3/uL Normal <0.11 [facility] Comment on above: Order Comment: Speci men Type: BLOOD SPECIMENOrdering Facility: [facility] Address: [address] [place] [address] Performed By: #### 5 7021-8 ####[facility]ATORYCLIA [id number] [address] [place] Basophils/100 WBC (Bld) 0.5 % Normal [facility] Comment on above: Order Comment: Speci men Type: BLOOD SPECIMENOrdering Facility: [facility] Address: [address] [place] [address] Performed By: #### 5 7021-8 ####[facility]ORATORYCLIA [id number] [address] Differential cell count method Nom (Bld) Auto Normal [facility] Comment on above: Order Comment: Speci men Type: BLOOD SPECIMENOrdering Facility: [facility] Address: [address] [place] [address] Performed By: #### 5 7021-8 ####[facility]ORATORYCLIA [id number] [address] [place] Eosinophils (Bld) [#/Vol] 0.42 10*3/uL Normal <0.46 [facility] Comment on above: Order Comment: Speci men Type: BLOOD SPECIMENOrdering Facility: [facility] Address: [address] [place] [address] Performed By: #### 5 7021-8 ####[facility]ORATORYCLIA [id number] [address] Eosinophils/100 WBC (Bld) 3.8 % Normal [facility] Comment on above: Order Comment: Speci men Type: BLOOD SPECIMENOrdering Facility: [facility] Address: [address] [place] [address] Performed By: #### 5 7021-8 ####[facility] LABORATORYCLIA [id number] [address] [place] Erythrocyte distribution width (RBC) [Ratio] 17.6 % High 11.5-15.0 [facility] Comment on above: Order Comment: Speci men Type: BLOOD SPECIMENOrdering Facility: [facility] Address: [address] [place] [address] Performed By: #### 5 7021-8 ####[facility] LABORATORYCLIA [id number] [address] Hematocrit (Bld) [Volume fraction] 29.3 % Low 39.0-51.0 [facility] Comment on above: Order Comment: Speci men Type: BLOOD SPECIMENOrdering Facility: [facility] Address: [address] [place] [address] Performed By: #### 5 7021-8 ####[facility] LABORATORYCLIA [id number] [address] STATES OF [facility] Hemoglobin (Bld) [Mass/Vol] 9.0 g/dL Low 13.0-17.0 [facility] Comment on above: Order Comment: Speci men Type: BLOOD SPECIMENOrdering Facility: [facility] Address: [address] [place] [address] Performed By: #### 5 7021-8 ####[facility] LABORATORYCLIA [id number] [address] IMMATURE GRAN % 0.5 % Normal [facility] Comment on above: Order Comment: Speci men Type: BLOOD SPECIMENOrdering Facility: [facility] Address: [address] [place] [address] Performed By: #### 5 7021-8 ####[facility] LABORATORYCLIA [id number] [address] IMMATURE GRAN ABS 0.05 k/uL Normal <0.10 [facility] Comment on above: Order Comment: Speci men Type: BLOOD SPECIMENOrdering Facility: [facility] Address: [address] [place] [address] Performed By: #### 5 7021-8 ####[facility] LABORATORYCLIA [id number] [address] [place] Lymphocytes (Bld) [#/Vol] 2.00 10*3/uL Normal 1.00-4.00 [facility] Comment on above: Order Comment: Speci men Type: BLOOD SPECIMENOrdering Facility: [facility] Address: [address] [place] [address] Performed By: #### 5 7021-8 ####[facility] LABORATORYCLIA [id number] [address] Lymphocytes/100 WBC (Bld) 18.1 % Normal [facility] Comment on above: Order Comment: Speci men Type: BLOOD SPECIMENOrdering Facility: [facility] Address: [address] [place] [address] Performed By: #### 5 7021-8 ####[facility] LABORATORYCLIA [id number] [address] MCH (RBC) [Entitic mass] 28.1 pg Normal 26.0-34.0 [facility] Comment on above: Order Comment: Speci men Type: BLOOD SPECIMENOrdering Facility: [facility] Address: [address] [place] [address] Performed By: #### 5 7021-8 ####[facility] LABORATORYCLIA [id number] [address] MCHC (RBC) [Mass/Vol] 30.7 g/dL Normal 30.5-36.0 [facility] Comment on above: Order Comment: Speci men Type: BLOOD SPECIMENOrdering Facility: [facility] Address: [address] [place] [address] Performed By: #### 5 7021-8 ####[facility] LABORATORYCLIA [id number] [address] [place] OF [facility] MCV (RBC) [Entitic vol] 91.6 fL Normal 80.0-100.0 [facility] Comment on above: Order Comment: Speci men Type: BLOOD SPECIMENOrdering Facility: [facility] Address: [address] [place] [address] Performed By: #### 5 7021-8 ####[facility] LABORATORYCLIA [id number] [address] Monocytes (Bld) [#/Vol] 0.68 10*3/uL Normal <0.87 [facility] Comment on above: Order Comment: Speci men Type: BLOOD SPECIMENOrdering Facility: [facility] Address: [address] [place] [address] Performed By: #### 5 7021-8 ####[facility] LABORATORYCLIA [id number] [address] Monocytes/100 WBC (Bld) 6.2 % Normal [facility] Comment on above: Order Comment: Speci men Type: BLOOD SPECIMENOrdering Facility: [facility] Address: [address] [place] [address] Performed By: #### 5 7021-8 ####[facility]ORATORYCLIA [id number] [address] [place] Neutrophils (Bld) [#/Vol] 7.82 10*3/uL High 1.45-7.50 [facility] Comment on above: Order Comment: Speci men Type: BLOOD SPECIMENOrdering Facility: [facility] Address: [address] [place] [address] Performed By: #### 5 7021-8 ####[facility] LABORATORYCLIA [id number] [address] [place] Neutrophils/100 WBC (Bld) 70.9 % Normal [facility] Comment on above: Order Comment: Speci men Type: BLOOD SPECIMENOrdering Facility: [facility] Address: [address] [place], [place] [address] Performed By: #### 5 7021-8 ####[facility]ORATORYCLIA [id number] [address] [place] Nucleated RBC (Bld) [#/Vol] 10*3/uL Normal <0.01 [facility] Comment on above: Order Comment: Speci men Type: BLOOD SPECIMENOrdering Facility: [facility] Address: [address] [place], [place] [address] Performed By: #### 5 7021-8 ####[facility]ORATORYCLIA [id number] [address] [place] Nucleated RBC/100 WBC (Bld) [Ratio] 0.0 /100 WBC Normal [facility] Comment on above: Order Comment: Speci men Type: BLOOD SPECIMENOrdering Facility: [facility] Address: [address] [place] [address] Performed By: #### 5 7021-8 ####[facility]ORATORYCLIA [id number] [address] [place] Platelet mean volume (Bld) [Entitic vol] 10.1 fL Normal 9.0-12.7 [facility] Comment on above: Order Comment: Speci men Type: BLOOD SPECIMENOrdering Facility: [facility] Address: [address] [place] [address] Performed By: #### 5 7021-8 ####[facility] LABORATORYCLIA [id number] [address] [place] Platelets (Bld) [#/Vol] 160 10*3/uL Normal 150-400 [facility] Comment on above: Order Comment: Speci men Type: BLOOD SPECIMENOrdering Facility: [facility] Address: [address] [place] [address] Performed By: #### 5 7021-8 ####[facility] LABORATORYCLIA [id number] [place] [address] [place] RBC (Bld) [#/Vol] 3.20 10*6/uL Low 4.20-6.00 [facility] Comment on above: Order Comment: Speci men Type: BLOOD SPECIMENOrdering Facility: [facility] Address: [address] [place] [address] Performed By: #### 5 7021-8 ####[facility] LABORATORYCLIA [id number] [place] [address] [place] WBC (Bld) [#/Vol] 11.03 10*3/uL High 3.70-11.00 [facility] Comment on above: Order Comment: Speci men Type: BLOOD SPECIMENOrdering Facility: [facility] Address: [address] [place] [address] Performed By: #### 5 7021-8 ####[facility] LABORATORYCLIA [id number] [address] [place] CONSULT PROGon 08-09-2021 CONSULT PROG Normal [facility] CT BRAIN WO IVCONon 08-10-[address] BRAIN WO IVCON Normal [facility] CT BRAIN WO IVCON Normal [facility] Magnesium SerPl-mCncon 08-09 Magnesium [Mass/Vol] 2.0 mg/dL Normal 1.7-2.3 [facility] Comment on above: Order Comment: Speci men Type: BLOOD SPECIMENOrdering Facility: [facility] Address: [address] [place] [address] Performed By: #### 2 4321-2, 71607-1, 2777-1 ####[facility] LABORATORYCLIA [id number] [address] OF [facility] NURSING PROGon 08-09-2021 NURSING PROG Normal [facility] OPERATIVE NOon 08-09-2021 OPERATIVE NO Normal [facility] PT panel Coag (PPP)on 2021 INR Coag (PPP) [Relative time] 1.1 {INR} Normal 0.9-1.3 [facility] Comment on above: Order Comment: Speci men Type: BLOOD SPECIMENOrdering Facility: [facility] Address: [address] [place] [address] Result Comment: Yris min K Antagonist (VKA) Therapeutic Range: INR 2 to 3 (Target INR of 2.5)Note: For patients treated with VKA drugs, such as warfarin, the [place] [employer] 2012 Guideline recommends [...] al. Chest 2012, 141:7S-47SAlba MURRY, et al. [facility] 2017, 70: 252-289 Performed By: #### 3 4528-0, 84949-9 ####[facility] LABORATORYCLIA [id number] [address] [place] PT Coag (PPP) [Time] 11.7 s Normal 9.7-13.0 [facility] Comment on above: Order Comment: Speci men Type: BLOOD SPECIMENOrdering Facility: [facility] Address: [address] [place] [address] Performed By: #### 3 4528-0, 43445-0 ####[facility] LABORATORYCLIA [id number] [address] [place] Phosphate SerPl-mCncon 08-09 Phosphate [Mass/Vol] 4.0 mg/dL Normal 2.7-4.8 [facility] Comment on above: Order Comment: Speci men Type: BLOOD SPECIMENOrdering Facility: [facility] Address: [address] [place] [address] Performed By: #### 2 4321-2, 59142-0, 2777-1 ####[facility] LABORATORYCLIA [id number] [address] OF [facility] THERAPY NTon 08-09-2021 THERAPY NT Normal [facility] THERAPY NT Normal [facility] TYPE AND SCREENon 08-09-2021 ABO O Normal [facility] Comment on above: Order Comment: Speci men Type: BLOOD SPECIMENOrdering Facility: [facility] Address: [address] [place] [address] Performed By: #### T SCR ####[facility] BLOOD BANKCLIA [id number] [address] [place] HISTORICAL AB SCR STATUS Negative Normal [facility] Comment on above: Order Comment: Speci men Type: BLOOD SPECIMENOrdering Facility: [facility] Address: [address] [place] [address] Performed By: #### T SCR ####[facility] BLOOD BANKCLIA [id number] [address] Rh Nom (Bld) Positive Normal [facility] Comment on above: Order Comment: Speci men Type: BLOOD SPECIMENOrdering Facility: [facility] Address: [address] [place] [address] Performed By: #### T SCR ####[facility] BLOOD BANKCLIA [id number] [address] TYPE AND SCREEN EXPIRATION 08/12/2021 23:59 Normal [facility] Comment on above: Order Comment: Speci men Type: BLOOD SPECIMENOrdering Facility: [facility] Address: [address] [place] [address] Performed By: #### T SCR ####[facility] BLOOD BANKCLIA [id number] [address] XR ABD 2V SUPINE W UPR/DECUB [...] Comment: Speci men Type: BLOOD SPECIMENOrdering Facility: [facility] Address: [address] [place] [address] Performed By: #### 3 4528-0, 28937-0 ####[facility] LABORATORYCLIA [id number] [address] CASE MANAGEMon 08-08-2021 CASE MANAGEM Normal [facility] CBC W Auto Differential pane l (Bld)on 08-08-2021 Basophils (Bld) [#/Vol] 0.05 10*3/uL Normal <0.11 [facility] Comment on above: Order Comment: Speci men Type: BLOOD SPECIMENOrdering Facility: [facility] Address: [address] [address] Performed By: #### 5 7021-8 ####[facility] LABORATORYCLIA [id number] [address] Basophils/100 WBC (Bld) 0.5 % Normal [facility] Comment on above: Order Comment: Speci men Type: BLOOD SPECIMENOrdering Facility: [facility] Address: [address] [place] [address] Performed By: #### 5 7021-8 ####[facility] LABORATORYCLIA [id number] [address] Differential cell count method Nom (Bld) Auto Normal [facility] Comment on above: Order Comment: Speci men Type: BLOOD SPECIMENOrdering Facility: [facility] Address: [address] [place] [address] Performed By: #### 5 7021-8 ####[facility] LABORATORYCLIA [id number] [address] [place] Eosinophils (Bld) [#/Vol] 0.17 10*3/uL Normal <0.46 [facility] Comment on above: Order Comment: Speci men Type: BLOOD SPECIMENOrdering Facility: [facility] Address: [address] [place] [address] Performed By: #### 5 7021-8 ####[facility]ORATORYCLIA [id number] [address] Eosinophils/100 WBC (Bld) 1.6 % Normal [facility] Comment on above: Order Comment: Speci men Type: BLOOD SPECIMENOrdering Facility: [facility] Address: [address] [place] [address] Performed By: #### 5 7021-8 ####[facility]ORATORYCLIA [id number] [address] [place] Erythrocyte distribution width (RBC) [Ratio] 17.8 % High 11.5-15.0 [facility] Comment on above: Order Comment: Speci men Type: BLOOD SPECIMENOrdering Facility: [facility] Address: [address] [place] [address] Performed By: #### 5 7021-8 ####[facility] LABORATORYCLIA [id number] [address] Hematocrit (Bld) [Volume fraction] 29.6 % Low 39.0-51.0 [facility] Comment on above: Order Comment: Speci men Type: BLOOD SPECIMENOrdering Facility: [facility] Address: [address] [place] [address] Performed By: #### 5 7021-8 ####[facility] LABORATORYCLIA [id number] [address] Hemoglobin (Bld) [Mass/Vol] 9.0 g/dL Low 13.0-17.0 [facility] Comment on above: Order Comment: Speci men Type: BLOOD SPECIMENOrdering Facility: [facility] Address: [address] [place] [address] Performed By: #### 5 7021-8 ####[facility] LABORATORYCLIA [id number] [address] IMMATURE GRAN % 0.5 % Normal [facility] Comment on above: Order Comment: Speci men Type: BLOOD SPECIMENOrdering Facility: [facility] Address: [address] [place] [address] Performed By: #### 5 7021-8 ####[facility] LABORATORYCLIA [id number] [address] IMMATURE GRAN ABS 0.05 k/uL Normal <0.10 [facility] Comment on above: Order Comment: Speci men Type: BLOOD SPECIMENOrdering Facility: [facility] Address: [address] [place] [address] Performed By: #### 5 7021-8 ####[facility] LABORATORYCLIA [id number] [place] [address] [place] Lymphocytes (Bld) [#/Vol] 1.93 10*3/uL Normal 1.00-4.00 [facility] Comment on above: Order Comment: Speci men Type: BLOOD SPECIMENOrdering Facility: [facility] Address: [address] [place] [address] Performed By: #### 5 7021-8 ####[facility] LABORATORYCLIA [id number] [address] [place] Lymphocytes/100 WBC (Bld) 18.2 % Normal [facility] Comment on above: Order Comment: Speci men Type: BLOOD SPECIMENOrdering Facility: [facility] Address: [address] [place] [address] Performed By: #### 5 7021-8 ####[facility] LABORATORYCLIA [id number] [address] [place] MCH (RBC) [Entitic mass] 28.1 pg Normal 26.0-34.0 [facility] Comment on above: Order Comment: Speci men Type: BLOOD SPECIMENOrdering Facility: [facility] Address: [address] [place] [address] Performed By: #### 5 7021-8 ####[facility] LABORATORYCLIA [id number] [address] [place] MCHC (RBC) [Mass/Vol] 30.4 g/dL Low 30.5-36.0 [facility] Comment on above: Order Comment: Speci men Type: BLOOD SPECIMENOrdering Facility: [facility] Address: [address] [place] [address] Performed By: #### 5 7021-8 ####[facility] LABORATORYCLIA [id number] [address] MCV (RBC) [Entitic vol] 92.5 fL Normal 80.0-100.0 [facility] Comment on above: Order Comment: Speci men Type: BLOOD SPECIMENOrdering Facility: [facility] Address: [address] [place] [address] Performed By: #### 5 7021-8 ####[facility] LABORATORYCLIA [id number] [place] [address] [place] Monocytes (Bld) [#/Vol] 0.75 10*3/uL Normal <0.87 [facility] Comment on above: Order Comment: Speci men Type: BLOOD SPECIMENOrdering Facility: [facility] Address: [address] [place] [address] Performed By: #### 5 7021-8 ####[facility]ORATORYCLIA [id number] [address] [place] Monocytes/100 WBC (Bld) 7.1 % Normal [facility] Comment on above: Order Comment: Speci men Type: BLOOD SPECIMENOrdering Facility: [facility] Address: [address] [place] [address] Performed By: #### 5 7021-8 ####[facility] LABORATORYCLIA [id number] [address] [place] Neutrophils (Bld) [#/Vol] 7.65 10*3/uL High 1.45-7.50 [facility] Comment on above: Order Comment: Speci men Type: BLOOD SPECIMENOrdering Facility: [facility] Address: [address] [place] [address] Performed By: #### 5 7021-8 ####[facility]ORATORYCLIA [id number] [address] [place] Neutrophils/100 WBC (Bld) 72.1 % Normal [facility] Comment on above: Order Comment: Speci men Type: BLOOD SPECIMENOrdering Facility: [facility] Address: [address] [place] [address] Performed By: #### 5 7021-8 ####[facility] LABORATORYCLIA [id number] [place] [address] [place] Nucleated RBC (Bld) [#/Vol] 10*3/uL Normal <0.01 [facility] Comment on above: Order Comment: Speci men Type: BLOOD SPECIMENOrdering Facility: [facility] Address: [address] [place] [address] Performed By: #### 5 7021-8 ####[facility] LABORATORYCLIA [id number] [address] Nucleated RBC/100 WBC (Bld) [Ratio] 0.0 /100 WBC Normal [facility] Comment on above: Order Comment: Speci men Type: BLOOD SPECIMENOrdering Facility: [facility] Address: [address] [place] [address] Performed By: #### 5 7021-8 ####[facility] LABORATORYCLIA [id number] [address] [place] Platelet mean volume (Bld) [Entitic vol] 9.8 fL Normal 9.0-12.7 [facility] Comment on above: Order Comment: Speci men Type: BLOOD SPECIMENOrdering Facility: [facility] Address: [address] [place] [address] Performed By: #### 5 7021-8 ####[facility] LABORATORYCLIA [id number] [address] [place] Platelets (Bld) [#/Vol] 175 10*3/uL Normal 150-400 [facility] Comment on above: Order Comment: Speci men Type: BLOOD SPECIMENOrdering Facility: [facility] Address: [address] [place] [address] Performed By: #### 5 7021-8 ####[facility] LABORATORYCLIA [id number] [address] [place] RBC (Bld) [#/Vol] 3.20 10*6/uL Low 4.20-6.00 [facility] Comment on above: Order Comment: Speci men Type: BLOOD SPECIMENOrdering Facility: [facility] Address: [address] [place] [address] Performed By: #### 5 7021-8 ####[facility] LABORATORYCLIA [id number] [address] [place] WBC (Bld) [#/Vol] 10.60 10*3/uL Normal 3.70-11.00 [facility] Comment on above: Order Comment: Speci men Type: BLOOD SPECIMENOrdering Facility: [facility] Address: [address] [place] [address] Performed By: #### 5 7021-8 ####[facility] LABORATORYCLIA [id number] [address] [place] CT BRAIN WO IVCONon 08-09-19 CT BRAIN WO IVCON Normal [facility] NURSING PROGon 08-08-2021 NURSING PROG Normal [facility] Prealbumin [Mass/Vol]on Prealbumin Nephelometry [Mass/Vol] 29 mg/dL Normal 17-36 [facility] Comment on above: Order Comment: Speci men Type: BLOOD SPECIMENOrdering Facility: [facility] Address: [address] [place] [address] Performed By: #### 1 4338-8 ####[facility] LABORATORYCLIA [id number] [address] OF [facility] SARS-CoV-2 RNA Resp Ql MEGAN+p robeon 08-08-2021 SARS-CoV-2 (COVID-19) RNA MEGAN+probe Ql (Resp) COVID 19 RESULT: SARS-CoV-2 (Agent of COVID-19) Not Detected by RT-PCR or equivalent method. This test has been authorized by FDA under an Emergency Use Authorization (EUA). Normal [facility] Comment on above: Performed By: #### 9 4500-6 ####[facility] LABORATORYCLIA [id number] [address] [place] ALLIED HEALTHon 08-07-2021 ALLIED HEALTH Normal [facility] Basic metabolic 2000 panelon 08-07-2021 Anion gap [Moles/Vol] 9 mmol/L Normal 9-18 [facility] Comment on above: Order Comment: Speci men Type: BLOOD SPECIMENOrdering Facility: [facility] Address: [address] Performed By: #### 2 4321-2, 2776-, , HFP ####[facility] LABORATORYCLIA [id number] [place] [address] [place] Calcium [Mass/Vol] 9.4 mg/dL Normal 8.5-10.2 [facility] Comment on above: Order Comment: Speci men Type: BLOOD SPECIMENOrdering Facility: [facility] Address: [address] [place] [address] Performed By: #### 2 4321-2, 2776-05, , HFP ####[facility] LABORATORYCLIA [id number] [place] [address] [place] Chloride [Moles/Vol] 98 mmol/L Normal 97-105 [facility] Comment on above: Order Comment: Speci men Type: BLOOD SPECIMENOrdering Facility: [facility] Address: [address] [place] [address] Performed By: #### 2 4321-2, 2776-05, , HFP ####[facility] LABORATORYCLIA [id number] [place] [address] [place] CO2 [Moles/Vol] 29 mmol/L Normal 22-30 [facility] Comment on above: Order Comment: Speci men Type: BLOOD SPECIMENOrdering Facility: [facility] Address: [address] [place], [place] [address] Performed By: #### 2 4321-2, 2776-05, , HFP ####[facility] LABORATORYCLIA [id number] [place] [address] [place] Creatinine [Mass/Vol] 0.67 mg/dL Low 0.73-1.22 [facility] Comment on above: Order Comment: Speci men Type: BLOOD SPECIMENOrdering Facility: [facility] Address: [address] [place], [place] [address] Performed By: #### 2 4321-2, 2776-, , HFP ####[facility] HOSPITALIA [id number] [place] [address] [facility] ESTIMATED GLOMERULAR FILTRATION RATE 101 mL/min/1.73m??? Normal >=60 [facility] Comment on above: Order Comment: Shira feldman Type: BLOOD SPECIMENOrdering Facility: [facility] Address: [address] [place] [address] Result Comment: Luzmaria mated Glomerular Filtration Rate [...] Performed By: #### 2 4321-2, 2777-, , [facility] ####[facility] [id number] [place] [id number] [facility] Glucose [Mass/Vol] 117 mg/dL High 74-99 [facility] Comment on above: Order Comment: Johncara feldman Type: BLOOD SPECIMENOrdering Facility: [facility] Address: [address] [place] [address] Result Comment: The [place] [employer] (ADA) provides guidance for cutoff [...] Standards of Medical Care in Diabetes 2016, [place] [employer]. Diabetes Care. 2016.39(Suppl 1). Performed By: #### 2 4321-2, 2777-, , [facility] ####[facility] [id number] [place] [address] [place] Potassium [Moles/Vol] 4.1 mmol/L Normal 3.7-5.1 [facility] Comment on above: Order Comment: Speci men Type: BLOOD SPECIMENOrdering Facility: [facility] Address: [address] [place] [address] Performed By: #### 2 4321-2, 2777-1, , [facility] ####[facility] LABORATORYCLIA [id number] [address] [facility] Sodium [Moles/Vol] 136 mmol/L Normal 136-144 [facility] Comment on above: Order Comment: Speci men Type: BLOOD SPECIMENOrdering Facility: [facility] [facility] Address: [address] [place] [address] Performed By: #### 2 4321-2, 2776-, , HFP ####[facility] LABORATORYCLIA [id number] [address] [place] [facility] Urea nitrogen [Mass/Vol] 31 mg/dL High 9-24 [facility] Comment on above: Order Comment: Speci men Type: BLOOD SPECIMENOrdering Facility: [facility] Address: [address] [place] [address] Performed By: #### 2 4321-2, 2776-, , HFP ####[facility]ORATORYCLIA [id number] [address] STATES OF [facility] CBC W Auto Differential pane l (Bld)on 08-07-2021 Basophils (Bld) [#/Vol] 0.03 10*3/uL Normal <0.11 [facility] Comment on above: Order Comment: Speci men Type: BLOOD SPECIMENOrdering Facility: [facility] Address: [address] [place] [address] Performed By: #### 5 7021-8 ####[facility] LABORATORYCLIA [id number] [address] Basophils/100 WBC (Bld) 0.3 % Normal [facility] Comment on above: Order Comment: Speci men Type: BLOOD SPECIMENOrdering Facility: [facility] Address: [address] [place] [address] Performed By: #### 5 7021-8 ####[facility] LABORATORYCLIA [id number] [address] Differential cell count method Nom (Bld) Auto Normal [facility] Comment on above: Order Comment: Speci men Type: BLOOD SPECIMENOrdering Facility: [facility] Address: [address] [place] [address] Performed By: #### 5 7021-8 ####[facility]ORATORYCLIA [id number] [address] [place] Eosinophils (Bld) [#/Vol] 0.16 10*3/uL Normal <0.46 [facility] Comment on above: Order Comment: Speci men Type: BLOOD SPECIMENOrdering Facility: [facility] Address: [address] [place] [address] Performed By: #### 5 7021-8 ####[facility]ORATORYCLIA [id number] [address] Eosinophils/100 WBC (Bld) 1.6 % Normal [facility] Comment on above: Order Comment: Speci men Type: BLOOD SPECIMENOrdering Facility: [facility] Address: [address] [place] [address] Performed By: #### 5 7021-8 ####[facility] LABORATORYCLIA [id number] [address] [place] Erythrocyte distribution width (RBC) [Ratio] 18.1 % High 11.5-15.0 [facility] Comment on above: Order Comment: Speci men Type: BLOOD SPECIMENOrdering Facility: [facility] Address: [address] [place] [address] Performed By: #### 5 7021-8 ####[facility]ORATORYCLIA [id number] [address] [place] Hematocrit (Bld) [Volume fraction] 30.6 % Low 39.0-51.0 [facility] Comment on above: Order Comment: Speci men Type: BLOOD SPECIMENOrdering Facility: [facility] Address: [address] [place] [address] Performed By: #### 5 7021-8 ####[facility]ORATORYCLIA [id number] [address] [place] Hemoglobin (Bld) [Mass/Vol] 9.4 g/dL Low 13.0-17.0 [facility] Comment on above: Order Comment: Speci men Type: BLOOD SPECIMENOrdering Facility: [facility] Address: [address] [place] [address] Performed By: #### 5 7021-8 ####[facility]ORATORYCLIA [id number] [address] [place] IMMATURE GRAN % 0.4 % Normal [facility] Comment on above: Order Comment: Speci men Type: BLOOD SPECIMENOrdering Facility: [facility] Address: [address] [place] [address] Performed By: #### 5 7021-8 ####[facility]ORATORYCLIA [id number] [address] IMMATURE GRAN ABS 0.04 k/uL Normal <0.10 [facility] Comment on above: Order Comment: Speci men Type: BLOOD SPECIMENOrdering Facility: [facility] Address: [address] [place] [address] Performed By: #### 5 7021-8 ####[facility]ORATORYCLIA [id number] [address] [place] Lymphocytes (Bld) [#/Vol] 2.05 10*3/uL Normal 1.00-4.00 [facility] Comment on above: Order Comment: Speci men Type: BLOOD SPECIMENOrdering Facility: [facility] Address: [address] [place] [address] Performed By: #### 5 7021-8 ####[facility]ORATORYCLIA [id number] [address] Lymphocytes/100 WBC (Bld) 20.2 % Normal [facility] Comment on above: Order Comment: Speci men Type: BLOOD SPECIMENOrdering Facility: [facility] Address: [address] [place] [address] Performed By: #### 5 7021-8 ####[facility]ORATORYCLIA [id number] [address] MCH (RBC) [Entitic mass] 28.8 pg Normal 26.0-34.0 [facility] Comment on above: Order Comment: Speci men Type: BLOOD SPECIMENOrdering Facility: [facility] Address: [address] [place] [address] Performed By: #### 5 7021-8 ####[facility]ORATORYCLIA [id number] [address] MCHC (RBC) [Mass/Vol] 30.7 g/dL Normal 30.5-36.0 [facility] Comment on above: Order Comment: Speci men Type: BLOOD SPECIMENOrdering Facility: [facility] Address: [address] [place] [address] Performed By: #### 5 7021-8 ####[facility]ORATORYCLIA [id number] [address] MCV (RBC) [Entitic vol] 93.9 fL Normal 80.0-100.0 [facility] Comment on above: Order Comment: Speci men Type: BLOOD SPECIMENOrdering Facility: [facility] Address: [address] [place] [address] Performed By: #### 5 7021-8 ####[facility]ORATORYCLIA [id number] [address] Monocytes (Bld) [#/Vol] 0.64 10*3/uL Normal <0.87 [facility] Comment on above: Order Comment: Speci men Type: BLOOD SPECIMENOrdering Facility: [facility] Address: [address] [place] [address] Performed By: #### 5 7021-8 ####[facility]ORATORYCLIA [id number] [address] [place] Monocytes/100 WBC (Bld) 6.3 % Normal [facility] Comment on above: Order Comment: Speci men Type: BLOOD SPECIMENOrdering Facility: [facility] Address: [address] [place] [address] Performed By: #### 5 7021-8 ####[facility]ORATORYCLIA [id number] [place] [address] [place] Neutrophils (Bld) [#/Vol] 7.22 10*3/uL Normal 1.45-7.50 [facility] Comment on above: Order Comment: Speci men Type: BLOOD SPECIMENOrdering Facility: [facility] Address: [address] [place] [address] Performed By: #### 5 7021-8 ####[facility] LABORATORYCLIA [id number] [address] [place] Neutrophils/100 WBC (Bld) 71.2 % Normal [facility] Comment on above: Order Comment: Speci men Type: BLOOD SPECIMENOrdering Facility: [facility] Address: [address] [place] [address] Performed By: #### 5 7021-8 ####[facility]ORATORYCLIA [id number] [place] [address] [place] Nucleated RBC (Bld) [#/Vol] 10*3/uL Normal <0.01 [facility] Comment on above: Order Comment: Speci men Type: BLOOD SPECIMENOrdering Facility: [facility] Address: [address] [place] [address] Performed By: #### 5 7021-8 ####[facility]ORATORYCLIA [id number] [place] [address] [place] Nucleated RBC/100 WBC (Bld) [Ratio] 0.0 /100 WBC Normal [facility] Comment on above: Order Comment: Speci men Type: BLOOD SPECIMENOrdering Facility: [facility] Address: [address] [place] [address] Performed By: #### 5 7021-8 ####[facility]ORATORYCLIA [id number] [address] [place] Platelet mean volume (Bld) [Entitic vol] 9.9 fL Normal 9.0-12.7 [facility] Comment on above: Order Comment: Speci men Type: BLOOD SPECIMENOrdering Facility: [facility] Address: [address] [place], [place] [id number] Performed By: #### 5 7021-8 ####[facility]ORATORYCLIA [id number] [address] [place] Platelets (Bld) [#/Vol] 227 10*3/uL Normal 150-400 [facility] Comment on above: Order Comment: Speci men Type: BLOOD SPECIMENOrdering Facility: [facility] Address: [address] [place] [address] Performed By: #### 5 7021-8 ####[facility] LABORATORYCLIA [id number] [place] [address] [place] RBC (Bld) [#/Vol] 3.26 10*6/uL Low 4.20-6.00 [facility] Comment on above: Order Comment: Speci men Type: BLOOD SPECIMENOrdering Facility: [facility] Address: [address] [place], [place] [id number] Performed By: #### 5 7021-8 ####[facility]ORATORYCLIA [id number] [address] [place] WBC (Bld) [#/Vol] 10.14 10*3/uL Normal 3.70-11.00 [facility] Comment on above: Order Comment: Speci men Type: BLOOD SPECIMENOrdering Facility: [facility] Address: [address] [place], [place] [address] Performed By: #### 5 7021-8 ####[facility]ORATORYCLIA [id number] [address] BRAIN WO IVCONon 08-08-19 CT BRAIN WO IVCON Normal [facility] HEPATIC FUNCTION PNLon 08-07 Albumin [Mass/Vol] 3.6 g/dL Low 3.9-4.9 [facility] Comment on above: Order Comment: Speci men Type: BLOOD SPECIMENOrdering Facility: [facility] Address: [address] [place] [address] Performed By: #### 2 4321-2, 2777-1, , HFP ####[facility]ORATORYCLIA [id number] [address] ALP [Catalytic activity/Vol] 124 U/L High 38-113 [facility] Comment on above: Order Comment: Speci men Type: BLOOD SPECIMENOrdering Facility: [facility] Address: [address] [place] [address] Performed By: #### 2 4321-2, 2777-1, , HFP ####[facility]ORATORYCLIA [id number] [address] ALT With P-5'-P [Catalytic activity/Vol] 29 U/L Normal 10-54 [facility] Comment on above: Order Comment: Speci men Type: BLOOD SPECIMENOrdering Facility: [facility] Address: [address] [place] [address] Performed By: #### 2 4321-2, 2777-1, , HFP ####[facility]ORATORYCLIA [id number] [address] AST With P-5'-P [Catalytic activity/Vol] 18 U/L Normal 14-40 [facility] Comment on above: Order Comment: Speci men Type: BLOOD SPECIMENOrdering Facility: [facility] Address: [address] [place] [address] Performed By: #### 2 4321-2, 277-, , HFP ####[facility]ORATORYCLIA [id number] [place] [id number] [place] Bilirubin [Mass/Vol] 0.3 mg/dL Normal 0.2-1.3 [facility] Comment on above: Order Comment: Speci men Type: BLOOD SPECIMENOrdering Facility: [facility] Address: [address] [place], [place] [phone] Performed By: #### 2 4321-2, 2776-05, , HFP ####[facility]ORATORYCLIA [id number] [place] [address] [place] Bilirubin.conjugated [Mass/Vol] mg/dL Normal <0.2 [facility] Comment on above: Order Comment: Speci men Type: BLOOD SPECIMENOrdering Facility: [facility] Address: [address] [place] [address] Performed By: #### 2 4321-2, 2776-05, , HFP ####[facility]ORATORYCLIA [id number] [place] [address] [place] Protein [Mass/Vol] 6.4 g/dL Normal 6.3-8.0 [facility] Comment on above: Order Comment: Speci men Type: BLOOD SPECIMENOrdering Facility: [facility] Address: [address] [place] [address] Performed By: #### 2 4321-2, 2776-05, , HFP ####[facility]ORATORYCLIA [id number] [place] [address] [place] Magnesium SerPl-mCncon 08-07 Magnesium [Mass/Vol] 2.3 mg/dL Normal 1.7-2.3 [facility] Comment on above: Order Comment: Speci men Type: BLOOD SPECIMENOrdering Facility: [facility] Address: [address] [place] [address] Performed By: #### 2 4321-2, 2776-05, , HFP ####[facility]ORATORYCLIA [id number] [place] [address] [place] NURSING PROGon 08-07-2021 NURSING PROG Normal [facility] Phosphate SerPl-mCncon 08-07 Phosphate [Mass/Vol] 3.5 mg/dL Normal 2.7-4.8 [facility] Comment on above: Order Comment: Speci men Type: BLOOD SPECIMENOrdering Facility: [facility] Address: [address] [place] [place] [address] Performed By: #### 2 4321-2, 2776-05, , [facility] ####[facility]ORATORYCLIA [id number] [address] [place] ANES POSTPROC EVALon 022 ANES POSTPROC EVAL Normal [facility] Basic metabolic 2000 panelon 08-06-2021 Anion gap [Moles/Vol] 11 mmol/L Normal 9-18 [facility] Comment on above: Order Comment: Speci men Type: BLOOD SPECIMENOrdering Facility: [facility] Address: [address] [place] [address] Performed By: #### 2 4321-2, 2776-05, ####[facility]CL[facility] [id number] [place] [address] [place] Calcium [Mass/Vol] 8.2 mg/dL Low 8.5-10.2 [facility] Comment on above: Order Comment: Speci men Type: BLOOD SPECIMENOrdering Facility: [facility] Address: [address] [place] [place] [address] Performed By: #### 2 4321-2, 2776-05, ####[facility]ORATORYCLIA [id number] [place] [address] [place] Chloride [Moles/Vol] 100 mmol/L Normal 97-105 [facility] Comment on above: Order Comment: Speci men Type: BLOOD SPECIMENOrdering Facility: [facility] Address: [address] [place], [place] [phone] Performed By: #### 2 4321-2, 2776-05, ####[facility]CLIA [id number] [place] [address] [place] [facility] CO2 [Moles/Vol] 23 mmol/L Normal 22-30 [facility] Comment on above: Order Comment: Speci men Type: BLOOD SPECIMENOrdering Facility: [facility] Address: [address] [place] [address] Performed By: #### 2 4321-2, 2776-05, ####[facility]ITALCLIA [id number] [place] [id number] [place] [facility] Creatinine [Mass/Vol] 0.55 mg/dL Low 0.73-1.22 [facility] Comment on above: Order Comment: Speci men Type: BLOOD SPECIMENOrdering Facility: [facility] Address: [address] [place] [address] Performed By: #### 2 4321-2, 2776-05, ####[facility]ITALCLIA [id number] [address] ESTIMATED GLOMERULAR FILTRATION RATE 107 mL/min/1.73m??? Normal >=60 [facility] Comment on above: Order Comment: Speci men Type: BLOOD SPECIMENOrdering Facility: [facility] Address: [address] [place] [address] Result Comment: Luzmaria mated Glomerular Filtration Rate [...] GFR. Performed By: #### 2 4321-2, 27711-04, ####[facility]ORATORYCLIA [id number] [place] [id number] [place] Glucose [Mass/Vol] 275 mg/dL High 74-99 [facility] Comment on above: Order Comment: Shira feldman Type: BLOOD SPECIMENOrdering Facility: [facility] Address: [address] [place], [place] [address] Result Comment: The [place] [employer] (ADA) provides guidance for cutoff [...] Standards of Medical Care in Diabetes 2016, [place] [employer]. Diabetes Care. 2016.39(Suppl 1). Performed By: #### 2 4321-2, 2776-05, ####[facility]ORATORYCLIA [id number] [place] [address] [place] Potassium [Moles/Vol] 3.6 mmol/L Low 3.7-5.1 [facility] Comment on above: Order Comment: Shira feldman Type: BLOOD SPECIMENOrdering Facility: [facility] Address: [address] [place], [place] [id number] Performed By: #### 2 4321-2, 27711-04, ####[facility]ORATORYCLIA [id number] [place] [address] [place] Sodium [Moles/Vol] 134 mmol/L Low 136-144 [facility] Comment on above: Order Comment: Shira feldman Type: BLOOD SPECIMENOrdering Facility: [facility] Address: [address] [place], [place] [address] Performed By: #### 2 4321-2, 2776-05, ####[facility]ORATORYCLIA [id number] [place] [address] [place] Urea nitrogen [Mass/Vol] 29 mg/dL High 9-24 [facility] Comment on above: Order Comment: Speci men Type: BLOOD SPECIMENOrdering Facility: [facility] Address: [address] [place] [address] Performed By: #### 2 4321-2, 2777-1, 59125-8 ####[facility]ORATORYCLIA [id number] [place] [address] [place] CBC W Auto Differential pane l (Bld)on 08-06-2021 Basophils (Bld) [#/Vol] 0.03 10*3/uL Normal <0.11 [facility] Comment on above: Order Comment: Speci men Type: BLOOD SPECIMENOrdering Facility: [facility] Address: [address] [place] [address] Performed By: #### 5 7021-8 ####[facility]ORATORYCLIA [id number] [place] [address] [place] Basophils/100 WBC (Bld) 0.3 % Normal [facility] Comment on above: Order Comment: Speci men Type: BLOOD SPECIMENOrdering Facility: [facility] Address: [address] [place] [address] Performed By: #### 5 7021-8 ####[facility]ORATORYCLIA [id number] [address] [place] [facility] Differential cell count method Nom (Bld) Auto Normal [facility] Comment on above: Order Comment: Speci men Type: BLOOD SPECIMENOrdering Facility: [facility] Address: [address] [place] [address] Performed By: #### 5 7021-8 ####[facility]ORATORYCLIA [id number] [place] [address] [place] Eosinophils (Bld) [#/Vol] 0.18 10*3/uL Normal <0.46 [facility] Comment on above: Order Comment: Speci men Type: BLOOD SPECIMENOrdering Facility: [facility] Address: [address] [place] [address] Performed By: #### 5 7021-8 ####[facility]ORATORYCLIA [id number] [address] [place] [facility] Eosinophils/100 WBC (Bld) 1.6 % Normal [facility] Comment on above: Order Comment: Speci men Type: BLOOD SPECIMENOrdering Facility: [facility] Address: [address] [place] [address] Performed By: #### 5 7021-8 ####[facility] LABORATORYCLIA [id number] [address] Erythrocyte distribution width (RBC) [Ratio] 17.9 % High 11.5-15.0 [facility] Comment on above: Order Comment: Speci men Type: BLOOD SPECIMENOrdering Facility: [facility] Address: [address] [place] [address] Performed By: #### 5 7021-8 ####[facility]ORATORYCLIA [id number] [address] Hematocrit (Bld) [Volume fraction] 27.6 % Low 39.0-51.0 [facility] Comment on above: Order Comment: Speci men Type: BLOOD SPECIMENOrdering Facility: [facility] Address: [address] [place] [address] Performed By: #### 5 7021-8 ####[facility]ORATORYCLIA [id number] [address] [place] Hemoglobin (Bld) [Mass/Vol] 8.5 g/dL Low 13.0-17.0 [facility] Comment on above: Order Comment: Speci men Type: BLOOD SPECIMENOrdering Facility: [facility] Address: [address] [place] [address] Performed By: #### 5 7021-8 ####[facility]ORATORYCLIA [id number] [address] [place] IMMATURE GRAN % 0.6 % Normal [facility] Comment on above: Order Comment: Speci men Type: BLOOD SPECIMENOrdering Facility: [facility] Address: [address] [place] [address] Performed By: #### 5 7021-8 ####[facility]ORATORYCLIA [id number] [address] IMMATURE GRAN ABS 0.07 k/uL Normal <0.10 [facility] Comment on above: Order Comment: Speci men Type: BLOOD SPECIMENOrdering Facility: [facility] Address: [address] [place] [address] Performed By: #### 5 7021-8 ####[facility]ORATORYCLIA [id number] [address] Lymphocytes (Bld) [#/Vol] 1.81 10*3/uL Normal 1.00-4.00 [facility] Comment on above: Order Comment: Speci men Type: BLOOD SPECIMENOrdering Facility: [facility] Address: [address] [place] [address] Performed By: #### 5 7021-8 ####[facility]ORATORYCLIA [id number] [address] Lymphocytes/100 WBC (Bld) 15.7 % Normal [facility] Comment on above: Order Comment: Speci men Type: BLOOD SPECIMENOrdering Facility: [facility] Address: [address] [place] [address] Performed By: #### 5 7021-8 ####[facility]ORATORYCLIA [id number] [address] [facility] MCH (RBC) [Entitic mass] 28.6 pg Normal 26.0-34.0 [facility] Comment on above: Order Comment: Speci men Type: BLOOD SPECIMENOrdering Facility: [facility] Address: [address] [place] [address] Performed By: #### 5 7021-8 ####[facility]ORATORYCLIA [id number] [address] MCHC (RBC) [Mass/Vol] 30.8 g/dL Normal 30.5-36.0 [facility] Comment on above: Order Comment: Speci men Type: BLOOD SPECIMENOrdering Facility: [facility] Address: [address] [place] [address] Performed By: #### 5 7021-8 ####[facility]ORATORYCLIA [id number] [address] [place] MCV (RBC) [Entitic vol] 92.9 fL Normal 80.0-100.0 [facility] Comment on above: Order Comment: Speci men Type: BLOOD SPECIMENOrdering Facility: [facility] Address: [address] [place] [address] Performed By: #### 5 7021-8 ####[facility]ORATORYCLIA [id number] [address] [place] Monocytes (Bld) [#/Vol] 0.63 10*3/uL Normal <0.87 [facility] Comment on above: Order Comment: Speci men Type: BLOOD SPECIMENOrdering Facility: [facility] Address: [address] [place] [address] Performed By: #### 5 7021-8 ####[facility]ORATORYCLIA [id number] [address] Monocytes/100 WBC (Bld) 5.5 % Normal [facility] Comment on above: Order Comment: Speci men Type: BLOOD SPECIMENOrdering Facility: [facility] Address: [address] [place] [address] Performed By: #### 5 7021-8 ####[facility]ORATORYCLIA [id number] [address] [place] Neutrophils (Bld) [#/Vol] 8.78 10*3/uL High 1.45-7.50 [facility] Comment on above: Order Comment: Speci men Type: BLOOD SPECIMENOrdering Facility: [facility] Address: [address] [place] [address] Performed By: #### 5 7021-8 ####[facility]ORATORYCLIA [id number] [address] [place] Neutrophils/100 WBC (Bld) 76.3 % Normal [facility] Comment on above: Order Comment: Speci men Type: BLOOD SPECIMENOrdering Facility: [facility] Address: [address] [place] [address] Performed By: #### 5 7021-8 ####[facility] LABORATORYCLIA [id number] [address] [place] Nucleated RBC (Bld) [#/Vol] 10*3/uL Normal <0.01 [facility] Comment on above: Order Comment: Speci men Type: BLOOD SPECIMENOrdering Facility: [facility] Address: [address] [place] [address] Performed By: #### 5 7021-8 ####[facility] LABORATORYCLIA [id number] [address] Nucleated RBC/100 WBC (Bld) [Ratio] 0.0 /100 WBC Normal [facility] Comment on above: Order Comment: Speci men Type: BLOOD SPECIMENOrdering Facility: [facility] Address: [address] [place] [address] Performed By: #### 5 7021-8 ####[facility] LABORATORYCLIA [id number] [address] [place] Platelet mean volume (Bld) [Entitic vol] 9.9 fL Normal 9.0-12.7 [facility] Comment on above: Order Comment: Speci men Type: BLOOD SPECIMENOrdering Facility: [facility] Address: [address] [place] [address] Performed By: #### 5 7021-8 ####[facility] LABORATORYCLIA [id number] [address] [place] Platelets (Bld) [#/Vol] 230 10*3/uL Normal 150-400 [facility] Comment on above: Order Comment: Speci men Type: BLOOD SPECIMENOrdering Facility: [facility] Address: [address] [place] [address] Performed By: #### 5 7021-8 ####[facility] LABORATORYCLIA [id number] [address] RBC (Bld) [#/Vol] 2.97 10*6/uL Low 4.20-6.00 [facility] Comment on above: Order Comment: Speci men Type: BLOOD SPECIMENOrdering Facility: [facility] Address: [address] [place] [address] Performed By: #### 5 7021-8 ####[facility] LABORATORYCLIA [id number] [address] WBC (Bld) [#/Vol] 11.50 10*3/uL High 3.70-11.00 [facility] Comment on above: Order Comment: Speci men Type: BLOOD SPECIMENOrdering Facility: [facility] Address: [address] [place] [address] Performed By: #### 5 7021-8 ####[facility] LABORATORYCLIA [id number] [address] CONSULT PROGon 08-06-2021 CONSULT PROG Normal [facility] Magnesium SerPl-mCncon 08-06 Magnesium [Mass/Vol] 1.9 mg/dL Normal 1.7-2.3 [facility] Comment on above: Order Comment: Speci men Type: BLOOD SPECIMENOrdering Facility: [facility] Address: [address] [place] [address] Performed By: #### 2 4321-2, 2777-1, 08115-9 ####[facility] LABORATORYCLIA [id number] [address] NURSING PROGon 08-06-2021 NURSING PROG Normal [facility] OPERATIVE NOon 08-06-2021 OPERATIVE NO Normal [facility] Phosphate SerPl-mCncon 08-06 Phosphate [Mass/Vol] 4.2 mg/dL Normal 2.7-4.8 [facility] Comment on above: Order Comment: Speci men Type: BLOOD SPECIMENOrdering Facility: [facility] Address: [address] [place], [place] [address] Performed By: #### 2 4321-2, 2777-1, 95800-9 ####[facility] LABORATORYCLIA [id number] [place] [address] [place] ALLIED HEALTHon 08-05-2021 [...] on above: Performed By: #### 3 2355-0 ####[facility]ORATORYCLIA [id number] [place] [address] [place] Bacteria Ur Culton Bacteria identified Cx Nom (U) CULTURE, URINE: No growth (<1,000 CFU/ml) Normal [facility] Comment on above: Performed By: #### 6 30-4 ####[facility]ORATORYCLIA [id number] [place] [address] [place] Basic metabolic 2000 panelon 08-05-2021 Anion gap [Moles/Vol] 7 mmol/L Low 9-18 [facility] Comment on above: Order Comment: Speci men Type: BLOOD SPECIMENOrdering Facility: [facility] Address: [address] [place] [id number] Performed By: #### 2 4321-2 ####[facility]ORATORYCLIA [id number] [place] [address] [place] Calcium [Mass/Vol] 9.5 mg/dL Normal 8.5-10.2 [facility] Comment on above: Order Comment: Speci men Type: BLOOD SPECIMENOrdering Facility: [facility] Address: [address] [address] Performed By: #### 2 4321-2 ####[facility] LABORATORYCLIA [id number] [address] [place] Chloride [Moles/Vol] 97 mmol/L Normal 97-105 [facility] Comment on above: Order Comment: Speci men Type: BLOOD SPECIMENOrdering Facility: [facility] Address: [address] [place] [address] Performed By: #### 2 4321-2 ####[facility] LABORATORYCLIA [id number] [address] [place] CO2 [Moles/Vol] 30 mmol/L Normal 22-30 [facility] Comment on above: Order Comment: Speci men Type: BLOOD SPECIMENOrdering Facility: [facility] Address: [address] [place] [address] Performed By: #### 2 4321-2 ####[facility] LABORATORYCLIA [id number] [address] [place] Creatinine [Mass/Vol] 0.61 mg/dL Low 0.73-1.22 [facility] Comment on above: Order Comment: Speci men Type: BLOOD SPECIMENOrdering Facility: [facility] Address: [address] [place] [address] Performed By: #### 2 4321-2 ####[facility] LABORATORYCLIA [id number] [address] ESTIMATED GLOMERULAR FILTRATION RATE 104 mL/min/1.73m??? Normal >=60 [facility] Comment on above: Order Comment: Speci men Type: BLOOD SPECIMENOrdering Facility: [facility] Address: [address] [place] [address] Result Comment: Luzmaria mated Glomerular Filtration Rate [...] actual GFR. Performed By: #### 2 4321-2 ####[facility]ORATORYCLIA [id number] [place] [address] [place] Glucose [Mass/Vol] 124 mg/dL High 74-99 [facility] Comment on above: Order Comment: Shira feldman Type: BLOOD SPECIMENOrdering Facility: [facility] Address: [address] [place], [place] [id number] Result Comment: The [place] [employer] (ADA) provides guidance for cutoff [...] Standards of Medical Care in Diabetes 2016, [place] [employer]. Diabetes Care. 2016.39(Suppl 1). Performed By: #### 2 4321-2 ####[facility] LABORATORYCLIA [id number] [place] [address] [place] Potassium [Moles/Vol] 4.9 mmol/L Normal 3.7-5.1 [facility] Comment on above: Order Comment: Shira feldman Type: BLOOD SPECIMENOrdering Facility: [facility] Address: [address] [place] [address] Performed By: #### 2 4321-2 ####[facility]ORATORYCLIA [id number] [place] [address] [place] Sodium [Moles/Vol] 134 mmol/L Low 136-144 [facility] Comment on above: Order Comment: Shira feldman Type: BLOOD SPECIMENOrdering Facility: [facility] Address: [address] [place] [address] Performed By: #### 2 4321-2 ####[facility] LABORATORYCLIA [id number] [address] [place] [facility] Urea nitrogen [Mass/Vol] 40 mg/dL High 9-24 [facility] Comment on above: Order Comment: Speci men Type: BLOOD SPECIMENOrdering Facility: [facility] Address: [address] [place] [address] Performed By: #### 2 4321-2 ####[facility] LABORATORYCLIA [id number] [place] [address] [place] CBC W Auto Differential pane l (Bld)on 08-05-2021 Basophils (Bld) [#/Vol] 0.04 10*3/uL Normal <0.11 [facility] Comment on above: Order Comment: Speci men Type: BLOOD SPECIMENOrdering Facility: [facility] Address: [address] [place] [address] Performed By: #### 5 7021-8 ####[facility] LABORATORYCLIA [id number] [address] [place] Basophils/100 WBC (Bld) 0.3 % Normal [facility] Comment on above: Order Comment: Speci men Type: BLOOD SPECIMENOrdering Facility: [facility] Address: [address] [place] [address] Performed By: #### 5 7021-8 ####[facility]ORATORYCLIA [id number] [address] [place] [facility] Differential cell count method Nom (Bld) Auto Normal [facility] Comment on above: Order Comment: Speci men Type: BLOOD SPECIMENOrdering Facility: [facility] Address: [address] [place] [address] Performed By: #### 5 7021-8 ####[facility]ORATORYCLIA [id number] [place] [address] [place] Eosinophils (Bld) [#/Vol] 0.42 10*3/uL Normal <0.46 [facility] Comment on above: Order Comment: Speci men Type: BLOOD SPECIMENOrdering Facility: [facility] Address: [address] [place] [address] Performed By: #### 5 7021-8 ####[facility]ORATORYCLIA [id number] [address] Eosinophils/100 WBC (Bld) 3.6 % Normal [facility] Comment on above: Order Comment: Speci men Type: BLOOD SPECIMENOrdering Facility: [facility] Address: [address] [place] [address] Performed By: #### 5 7021-8 ####[facility]ORATORYCLIA [id number] [address] [place] Erythrocyte distribution width (RBC) [Ratio] 17.9 % High 11.5-15.0 [facility] Comment on above: Order Comment: Speci men Type: BLOOD SPECIMENOrdering Facility: [facility] Address: [address] [place] [address] Performed By: #### 5 7021-8 ####[facility]ORATORYCLIA [id number] [address] [place] Hematocrit (Bld) [Volume fraction] 30.8 % Low 39.0-51.0 [facility] Comment on above: Order Comment: Speci men Type: BLOOD SPECIMENOrdering Facility: [facility] Address: [address] [place] [address] Performed By: #### 5 7021-8 ####[facility]ORATORYCLIA [id number] [address] [place] Hemoglobin (Bld) [Mass/Vol] 9.6 g/dL Low 13.0-17.0 [facility] Comment on above: Order Comment: Speci men Type: BLOOD SPECIMENOrdering Facility: [facility] Address: [address] [place] [address] Performed By: #### 5 7021-8 ####[facility] LABORATORYCLIA [id number] [address] IMMATURE GRAN % 0.5 % Normal [facility] Comment on above: Order Comment: Speci men Type: BLOOD SPECIMENOrdering Facility: [facility] Address: [address] [place] [address] Performed By: #### 5 7021-8 ####[facility]ORATORYCLIA [id number] [address] IMMATURE GRAN ABS 0.06 k/uL Normal <0.10 [facility] Comment on above: Order Comment: Speci men Type: BLOOD SPECIMENOrdering Facility: [facility] Address: [address] [place] [address] Performed By: #### 5 7021-8 ####[facility]ORATORYCLIA [id number] [address] [place] Lymphocytes (Bld) [#/Vol] 2.17 10*3/uL Normal 1.00-4.00 [facility] Comment on above: Order Comment: Speci men Type: BLOOD SPECIMENOrdering Facility: [facility] Address: [address] [place] [address] Performed By: #### 5 7021-8 ####[facility]ORATORYCLIA [id number] [address] Lymphocytes/100 WBC (Bld) 18.7 % Normal [facility] Comment on above: Order Comment: Speci men Type: BLOOD SPECIMENOrdering Facility: [facility] Address: [address] [place] [address] Performed By: #### 5 7021-8 ####[facility]ORATORYCLIA [id number] [address] [place] MCH (RBC) [Entitic mass] 28.9 pg Normal 26.0-34.0 [facility] Comment on above: Order Comment: Speci men Type: BLOOD SPECIMENOrdering Facility: [facility] Address: [address] [place] [address] Performed By: #### 5 7021-8 ####[facility] LABORATORYCLIA [id number] [address] [place] [facility] MCHC (RBC) [Mass/Vol] 31.2 g/dL Normal 30.5-36.0 [facility] Comment on above: Order Comment: Speci men Type: BLOOD SPECIMENOrdering Facility: [facility] Address: [address] [place] [address] Performed By: #### 5 7021-8 ####[facility] LABORATORYCLIA [id number] [address] MCV (RBC) [Entitic vol] 92.8 fL Normal 80.0-100.0 [facility] Comment on above: Order Comment: Speci men Type: BLOOD SPECIMENOrdering Facility: [facility] Address: [address] [place] [address] Performed By: #### 5 7021-8 ####[facility] LABORATORYCLIA [id number] [address] [place] [facility] Monocytes (Bld) [#/Vol] 0.71 10*3/uL Normal <0.87 [facility] Comment on above: Order Comment: Speci men Type: BLOOD SPECIMENOrdering Facility: [facility] Address: [address] [place] [address] Performed By: #### 5 7021-8 ####[facility]ORATORYCLIA [id number] [address] Monocytes/100 WBC (Bld) 6.1 % Normal [facility] Comment on above: Order Comment: Speci men Type: BLOOD SPECIMENOrdering Facility: [facility] Address: [address] [place] [address] Performed By: #### 5 7021-8 ####[facility]ORATORYCLIA [id number] [address] [place] Neutrophils (Bld) [#/Vol] 8.19 10*3/uL High 1.45-7.50 [facility] Comment on above: Order Comment: Speci men Type: BLOOD SPECIMENOrdering Facility: [facility] Address: [address] [address] Performed By: #### 5 7021-8 ####[facility] LABORATORYCLIA [id number] [address] Neutrophils/100 WBC (Bld) 70.8 % Normal [facility] Comment on above: Order Comment: Speci men Type: BLOOD SPECIMENOrdering Facility: [facility] Address: [address] [place] [address] Performed By: #### 5 7021-8 ####[facility]ORATORYCLIA [id number] [address] Nucleated RBC (Bld) [#/Vol] 10*3/uL Normal <0.01 [facility] Comment on above: Order Comment: Speci men Type: BLOOD SPECIMENOrdering Facility: [facility] Address: [address] [place] [address] Performed By: #### 5 7021-8 ####[facility]ORATORYCLIA [id number] [address] Nucleated RBC/100 WBC (Bld) [Ratio] 0.0 /100 WBC Normal [facility] Comment on above: Order Comment: Speci men Type: BLOOD SPECIMENOrdering Facility: [facility] Address: [address] [place] [address] Performed By: #### 5 7021-8 ####[facility] LABORATORYCLIA [id number] [address] Platelet mean volume (Bld) [Entitic vol] 9.6 fL Normal 9.0-12.7 [facility] Comment on above: Order Comment: Speci men Type: BLOOD SPECIMENOrdering Facility: [facility] Address: [address] [place] [address] Performed By: #### 5 7021-8 ####[facility]ORATORYCLIA [id number] [address] Platelets (Bld) [#/Vol] 339 10*3/uL Normal 150-400 [facility] Comment on above: Order Comment: Speci men Type: BLOOD SPECIMENOrdering Facility: [facility] Address: [address] [place] [address] Performed By: #### 5 7021-8 ####[facility] LABORATORYCLIA [id number] [place] [address] [place] RBC (Bld) [#/Vol] 3.32 10*6/uL Low 4.20-6.00 [facility] Comment on above: Order Comment: Speci men Type: BLOOD SPECIMENOrdering Facility: [facility] Address: [address] [place] [address] Performed By: #### 5 7021-8 ####[facility]ORATORYCLIA [id number] [address] WBC (Bld) [#/Vol] 11.59 10*3/uL High 3.70-11.00 [facility] Comment on above: Order Comment: Speci men Type: BLOOD SPECIMENOrdering Facility: [facility] Address: [address] [place] [address] Performed By: #### 5 7021-8 ####[facility] LABORATORYCLIA [id number] [address] [place] BRAIN WO IVCONon 08-06-[address] BRAIN WO IVCON Normal [facility] Magnesium SerPl-mCncon 08-05 Magnesium [Mass/Vol] 2.2 mg/dL Normal 1.7-2.3 [facility] Comment on above: Order Comment: Speci men Type: BLOOD SPECIMENOrdering Facility: [facility] Address: [address] [place] [address] Performed By: #### 1 9123-9, 2777-1 ####[facility] LABORATORYCLIA [id number] [address] [place] NURSING PROGon 08-05-2021 NURSING PROG Normal [facility] NURSING PROG Normal [facility] NUTRITIONon 08-05-2021 NUTRITION Normal [facility] OPERATIVE NOon 08-05-2021 OPERATIVE NO Normal [facility] Phosphate SerPl-mCncon 08-05 Phosphate [Mass/Vol] 4.6 mg/dL Normal 2.7-4.8 [facility] Comment on above: Order Comment: Speci men Type: BLOOD SPECIMENOrdering Facility: [facility] Address: [address] [place] [address] Performed By: #### 1 9123-9, 2777-1 ####[facility]ORATORYCLIA [id number] [address] THERAPY NTon 08-05-2021 THERAPY NT Normal [facility] THERAPY NT Normal [facility] Urinalysis complete panel (U )on 08-05-2021 Bilirubin Ql (U) Negative Normal Negative [facility] Comment on above: Order Comment: Speci men Type: URINE SPECIMENOrdering Facility: [facility] Address: [address] [place] [address] Performed By: #### 2 4356-8 ####[facility]ORATORYCLIA [id number] [address] [place] Clarity (Unsp spec) Clear Normal Clear [facility] Comment on above: Order Comment: Speci men Type: URINE SPECIMENOrdering Facility: [facility] Address: [address] [place] [address] Performed By: #### 2 4356-8 ####[facility]ORATORYCLIA [id number] [address] [place] Color (U) Light Yellow Normal yellow [facility] Comment on above: Order Comment: Speci men Type: URINE SPECIMENOrdering Facility: [facility] Address: [address] [place] [address] Performed By: #### 2 4356-8 ####[facility]ORATORYCLIA [id number] [address] [place] Epithelial cells LM.HPF (Urine sed) [#/Area] Few Abnormal None Seen [facility] Comment on above: Order Comment: Speci men Type: URINE SPECIMENOrdering Facility: [facility] Address: [address] [place] [address] Performed By: #### 2 4356-8 ####[facility] LABORATORYCLIA [id number] [address] Glucose Test strip (U) [Mass/Vol] Negative Normal Negative [facility] Comment on above: Order Comment: Speci men Type: URINE SPECIMENOrdering Facility: [facility] Address: [address] [place] [address] Performed By: #### 2 4356-8 ####[facility]ORATORYCLIA [id number] [address] Hemoglobin Ql (U) Negative Normal Negative [facility] Comment on above: Order Comment: Speci men Type: URINE SPECIMENOrdering Facility: [facility] Address: [address] [place] [address] Performed By: #### 2 4356-8 ####[facility]ORATORYCLIA [id number] [address] Hyaline casts (Urine sed) [#/Area] 1-3 /LPF Abnormal 0 /LPF [facility] Comment on above: Order Comment: Speci men Type: URINE SPECIMENOrdering Facility: [facility] Address: [address] [place] [address] Performed By: #### 2 4356-8 ####[facility] LABORATORYCLIA [id number] [address] Ketones Ql (U) Negative Normal Negative [facility] Comment on above: Order Comment: Speci men Type: URINE SPECIMENOrdering Facility: [facility] Address: [address] [place] [address] Performed By: #### 2 4356-8 ####[facility] LABORATORYCLIA [id number] [place] [address] Leukocyte esterase Test strip Ql (U) Negative Normal Negative [facility] Comment on above: Order Comment: Speci men Type: URINE SPECIMENOrdering Facility: [facility] Address: [address] [place] [address] Performed By: #### 2 4356-8 ####[facility]ORATORYCLIA [id number] [address] [place] [facility] Nitrite Ql (U) Negative Normal Negative [facility] Comment on above: Order Comment: Speci men Type: URINE SPECIMENOrdering Facility: [facility] Address: [address] [place] [address] Performed By: #### 2 4356-8 ####[facility] LABORATORYCLIA [id number] [address] [place] [facility] pH (U) 6.0 [pH] Normal 5.0-8.0 [facility] Comment on above: Order Comment: Speci men Type: URINE SPECIMENOrdering Facility: [facility] Address: [address] [place] [address] Performed By: #### 2 4356-8 ####[facility] LABORATORYCLIA [id number] [address] Protein (U) [Mass/Vol] Negative Normal Negative [facility] Comment on above: Order Comment: Speci men Type: URINE SPECIMENOrdering Facility: [facility] Address: [address] [place] [address] Performed By: #### 2 4356-8 ####[facility] LABORATORYCLIA [id number] [address] RBC LM.HPF (Urine sed) [#/Area] 0-3 /HPF Normal 0-3 /HPF [facility] Comment on above: Order Comment: Speci men Type: URINE SPECIMENOrdering Facility: [facility] Address: [address] [place] [address] Performed By: #### 2 4356-8 ####[facility] LABORATORYCLIA [id number] [address] [place] Specific gravity (U) [Rel density] 1.015 Normal 1.005-1.030 [facility] Comment on above: Order Comment: Speci men Type: URINE SPECIMENOrdering Facility: [facility] Address: [address] [place] [address] Performed By: #### 2 4356-8 ####[facility]ORATORYCLIA [id number] [address] [place] Urobilinogen Ql (U) Normal Normal Negative [facility] Comment on above: Order Comment: Speci men Type: URINE SPECIMENOrdering Facility: [facility] Address: [address] [place] [address] Performed By: #### 2 4356-8 ####[facility]ORATORYCLIA [id number] [address] [place] WBC LM.HPF (Urine sed) [#/Area] 0-5 /HPF Normal 0-5 /HPF [facility] Comment on above: Order Comment: Speci men Type: URINE SPECIMENOrdering Facility: [facility] Address: [address] [place] [address] Performed By: #### 2 4356-8 ####[facility] LABORATORYCLIA [id number] [address] [place] XR ABDOMEN 1V SUPINEon [...] on above: Performed By: #### 6 00-7 ####[facility]ORATORYCLIA [id number] [address] Bacteria identified Cx Nom (Bld) CULTURE, BLOOD: No growth 5 days Normal [facility] Comment on above: Performed By: #### 6 00-7 ####[facility] LABORATORYCLIA [id number] [address] OF [facility] CBC W Auto Differential pane l (Bld)on 08-04-2021 Basophils (Bld) [#/Vol] 0.05 10*3/uL Normal <0.11 [facility] Comment on above: Order Comment: Speci men Type: BLOOD SPECIMENOrdering Facility: [facility] Address: [address] [place] [address] Performed By: #### 5 7021-8 ####[facility] LABORATORYCLIA [id number] [address] Basophils/100 WBC (Bld) 0.4 % Normal [facility] Comment on above: Order Comment: Speci men Type: BLOOD SPECIMENOrdering Facility: [facility] Address: [address] [place] [address] Performed By: #### 5 7021-8 ####[facility] LABORATORYCLIA [id number] [address] Differential cell count method Nom (Bld) Auto Normal [facility] Comment on above: Order Comment: Speci men Type: BLOOD SPECIMENOrdering Facility: [facility] Address: [address] [place] [address] Performed By: #### 5 7021-8 ####[facility] LABORATORYCLIA [id number] [address] OF [facility] REHABILITATION Eosinophils (Bld) [#/Vol] 0.21 10*3/uL Normal <0.46 [facility] Comment on above: Order Comment: Speci men Type: BLOOD SPECIMENOrdering Facility: [facility] Address: [address] [place] [address] Performed By: #### 5 7021-8 ####[facility] LABORATORYCLIA [id number] [address] [place] [facility] Eosinophils/100 WBC (Bld) 1.7 % Normal [facility] Comment on above: Order Comment: Speci men Type: BLOOD SPECIMENOrdering Facility: [facility] Address: [address] [place] [address] Performed By: #### 5 7021-8 ####[facility] LABORATORYCLIA [id number] [address] [place] Erythrocyte distribution width (RBC) [Ratio] 18.1 % High 11.5-15.0 [facility] Comment on above: Order Comment: Speci men Type: BLOOD SPECIMENOrdering Facility: [facility] Address: [address] [place] [address] Performed By: #### 5 7021-8 ####[facility] LABORATORYCLIA [id number] [address] Hematocrit (Bld) [Volume fraction] 32.0 % Low 39.0-51.0 [facility] Comment on above: Order Comment: Speci men Type: BLOOD SPECIMENOrdering Facility: [facility] Address: [address] [place] [address] Performed By: #### 5 7021-8 ####[facility] LABORATORYCLIA [id number] [address] [place] Hemoglobin (Bld) [Mass/Vol] 10.0 g/dL Low 13.0-17.0 [facility] Comment on above: Order Comment: Speci men Type: BLOOD SPECIMENOrdering Facility: [facility] Address: [address] [place] [address] Performed By: #### 5 7021-8 ####[facility] LABORATORYCLIA [id number] [address] [place] IMMATURE GRAN % 0.6 % Normal [facility] Comment on above: Order Comment: Speci men Type: BLOOD SPECIMENOrdering Facility: [facility] Address: [address] [place] [address] Performed By: #### 5 7021-8 ####[facility] LABORATORYCLIA [id number] [address] IMMATURE GRAN ABS 0.08 k/uL Normal <0.10 [facility] Comment on above: Order Comment: Speci men Type: BLOOD SPECIMENOrdering Facility: [facility] Address: [address] [place] [address] Performed By: #### 5 7021-8 ####[facility] LABORATORYCLIA [id number] [address] Lymphocytes (Bld) [#/Vol] 2.55 10*3/uL Normal 1.00-4.00 [facility] Comment on above: Order Comment: Speci men Type: BLOOD SPECIMENOrdering Facility: [facility] Address: [address] [place] [address] Performed By: #### 5 7021-8 ####[facility] LABORATORYCLIA [id number] [address] Lymphocytes/100 WBC (Bld) 20.5 % Normal [facility] Comment on above: Order Comment: Speci men Type: BLOOD SPECIMENOrdering Facility: [facility] Address: [address] [place] [address] Performed By: #### 5 7021-8 ####[facility] LABORATORYCLIA [id number] [address] MCH (RBC) [Entitic mass] 28.9 pg Normal 26.0-34.0 [facility] Comment on above: Order Comment: Speci men Type: BLOOD SPECIMENOrdering Facility: [facility] Address: [address] [place] [address] Performed By: #### 5 7021-8 ####[facility] LABORATORYCLIA [id number] [address] MCHC (RBC) [Mass/Vol] 31.3 g/dL Normal 30.5-36.0 [facility] Comment on above: Order Comment: Speci men Type: BLOOD SPECIMENOrdering Facility: [facility] Address: [address] [place] [address] Performed By: #### 5 7021-8 ####[facility] LABORATORYCLIA [id number] [address] [place] MCV (RBC) [Entitic vol] 92.5 fL Normal 80.0-100.0 [facility] Comment on above: Order Comment: Speci men Type: BLOOD SPECIMENOrdering Facility: [facility] Address: [address] [place] [address] Performed By: #### 5 7021-8 ####[facility] LABORATORYCLIA [id number] [address] [place] Monocytes (Bld) [#/Vol] 0.85 10*3/uL Normal <0.87 [facility] Comment on above: Order Comment: Speci men Type: BLOOD SPECIMENOrdering Facility: [facility] Address: [address] [place] [address] Performed By: #### 5 7021-8 ####[facility] LABORATORYCLIA [id number] [address] OF [facility] Monocytes/100 WBC (Bld) 6.8 % Normal [facility] Comment on above: Order Comment: Speci men Type: BLOOD SPECIMENOrdering Facility: [facility] Address: [address] [place] [address] Performed By: #### 5 7021-8 ####[facility] LABORATORYCLIA [id number] [address] [place] Neutrophils (Bld) [#/Vol] 8.68 10*3/uL High 1.45-7.50 [facility] Comment on above: Order Comment: Speci men Type: BLOOD SPECIMENOrdering Facility: [facility] Address: [address] [place] [address] Performed By: #### 5 7021-8 ####[facility]ORATORYCLIA [id number] [address] Neutrophils/100 WBC (Bld) 70.0 % Normal [facility] Comment on above: Order Comment: Speci men Type: BLOOD SPECIMENOrdering Facility: [facility] Address: [address] [place] [address] Performed By: #### 5 7021-8 ####[facility] LABORATORYCLIA [id number] [address] Nucleated RBC (Bld) [#/Vol] 10*3/uL Normal <0.01 [facility] Comment on above: Order Comment: Speci men Type: BLOOD SPECIMENOrdering Facility: [facility] Address: [address] [place] [address] Performed By: #### 5 7021-8 ####[facility] LABORATORYCLIA [id number] [address] [facility] Nucleated RBC/100 WBC (Bld) [Ratio] 0.0 /100 WBC Normal [facility] Comment on above: Order Comment: Speci men Type: BLOOD SPECIMENOrdering Facility: [facility] Address: [address] [place] [address] Performed By: #### 5 7021-8 ####[facility]ORATORYCLIA [id number] [address] [place] Platelet mean volume (Bld) [Entitic vol] 10.0 fL Normal 9.0-12.7 [facility] Comment on above: Order Comment: Speci men Type: BLOOD SPECIMENOrdering Facility: [facility] Address: [address] [place] [address] Performed By: #### 5 7021-8 ####[facility]ORATORYCLIA [id number] [address] [place] Platelets (Bld) [#/Vol] 393 10*3/uL Normal 150-400 [facility] Comment on above: Order Comment: Speci men Type: BLOOD SPECIMENOrdering Facility: [facility] Address: [address] [place] [address] Performed By: #### 5 7021-8 ####[facility] LABORATORYCLIA [id number] [address] RBC (Bld) [#/Vol] 3.46 10*6/uL Low 4.20-6.00 [facility] Comment on above: Order Comment: Speci men Type: BLOOD SPECIMENOrdering Facility: [facility] Address: [address] [place] [address] Performed By: #### 5 7021-8 ####[facility] LABORATORYCLIA [id number] [address] WBC (Bld) [#/Vol] 12.42 10*3/uL High 3.70-11.00 [facility] Comment on above: Order Comment: Speci men Type: BLOOD SPECIMENOrdering Facility: [facility] Address: [address] [place] [address] Performed By: #### 5 7021-8 ####[facility] LABORATORYCLIA [id number] [address] BRAIN WO IVCONon 08-05-[address] BRAIN WO IVCON Normal [facility] Lactate (Bld) [Moles/Vol]on 08-04-2021 Lactate [Moles/Vol] 1.4 mmol/L Normal 0.5-2.2 [facility] Comment on above: Order Comment: Speci men Type: BLOOD SPECIMENOrdering Facility: [facility] Address: [address] [place] [address] Performed By: #### 3 2693-4 ####[facility] LABORATORYCLIA [id number] [address] PROCALCITONIN (LAB)on 2021 Procalcitonin [Mass/Vol] 0.08 ng/mL Normal <0.09 [facility] Comment on above: Order Comment: Speci men Type: BLOOD SPECIMENOrdering Facility: [facility] Address: [facility] [place] [address] Result Comment: For a guided interpretation of test results, please visit the Change in Procalcitonin Calculator, [email or web address]. Performed By: #### P ROCAL ####[facility] LABORATORYCLIA [id number] [address] Prealbumin [Mass/Vol]on 07-07 Prealbumin Nephelometry [Mass/Vol] 35 mg/dL Normal [facility] Comment on above: Order Comment: Speci men Type: BLOOD SPECIMENOrdering Facility: [facility] Address: [address] [place] [address] Performed By: #### 1 4338-8 ####[facility] LABORATORYCLIA [id number] [address] SARS-CoV-2 RNA Resp Ql MEGAN+p robeon 08-04-2021 SARS-CoV-2 (COVID-19) RNA MEGAN+probe Ql (Resp) COVID 19 RESULT: SARS-CoV-2 (Agent of COVID-19) Not Detected by RT-PCR or equivalent method. This test has been authorized by FDA under an Emergency Use Authorization (EUA). Normal [facility] Comment on above: Performed By: #### 9 4500-6 ####[facility] LABORATORYCLIA [id number] [address] STATES OF [facility] TYPE AND SCREENon 08-04-2021 ABO O Normal [facility] Comment on above: Order Comment: Speci men Type: BLOOD SPECIMENOrdering Facility: [facility] Address: [address] [place] [address] Performed By: #### T SCR ####[facility] BLOOD BANKCLIA [id number] [address] HISTORICAL AB SCR STATUS Negative Normal [facility] Comment on above: Order Comment: Speci men Type: BLOOD SPECIMENOrdering Facility: [facility] Address: [address] [place] [address] Performed By: #### T SCR ####[facility] BLOOD BANKCLIA [id number] [address] Rh Nom (Bld) Positive Normal [facility] Comment on above: Order Comment: Speci men Type: BLOOD SPECIMENOrdering Facility: [facility] Address: [address] [place] [address] Performed By: #### T SCR ####[facility] BLOOD BANKCLIA [id number] [address] TYPE AND SCREEN EXPIRATION 08/07/2021 23:59 Normal [facility] Comment on above: Order Comment: Speci men Type: BLOOD SPECIMENOrdering Facility: [facility] Address: [address] [place] [address] Performed By: #### T SCR ####[facility] BLOOD BANKCLIA [id number] [address] aPTT PPPon 08-04-2021 aPTT Coag (PPP) [Time] 51.8 s High 23.0-32.4 [facility] Comment on above: Order Comment: Speci men Type: BLOOD SPECIMENOrdering Facility: [facility] Address: [address] [place] [address] Performed By: #### 1 4979-9 ####[facility] LABORATORYCLIA [id number] [address] Basic metabolic 2000 panelon 08-03-2021 Anion gap [Moles/Vol] 9 mmol/L Normal 9-18 [facility] Comment on above: Order Comment: Speci men Type: BLOOD SPECIMENOrdering Facility: [facility] Address: [address] [place] [address] Performed By: #### 2 4321-2, 40432-4, 2777-1 ####[facility] LABORATORYCLIA [id number] [address] Calcium [Mass/Vol] 9.3 mg/dL Normal 8.5-10.2 [facility] Comment on above: Order Comment: Speci men Type: BLOOD SPECIMENOrdering Facility: [facility] Address: [address] [place] [address] Performed By: #### 2 4321-2, , 2776-05 ####[facility] LABORATORYCLIA [id number] [place] [address] [place] Chloride [Moles/Vol] 97 mmol/L Normal 97-105 [facility] Comment on above: Order Comment: Speci men Type: BLOOD SPECIMENOrdering Facility: [facility] Address: [address] [place] [address] Performed By: #### 2 4321-2, , 2776-05 ####[facility] LABORATORYCLIA [id number] [place] [address] [place] CO2 [Moles/Vol] 27 mmol/L Normal 22-30 [facility] Comment on above: Order Comment: Speci men Type: BLOOD SPECIMENOrdering Facility: [facility] Address: [address] [place] [address] Performed By: #### 2 4321-2, , 2776-05 ####[facility] LABORATORYCLIA [id number] [address] [place] Creatinine [Mass/Vol] 0.63 mg/dL Low 0.73-1.22 [facility] Comment on above: Order Comment: Speci men Type: BLOOD SPECIMENOrdering Facility: [facility] Address: [address] [place] [address] Performed By: #### 2 4321-2, , 2776-05 ####[facility] LABORATORYCLIA [id number] [address] ESTIMATED GLOMERULAR FILTRATION RATE 103 mL/min/1.73m??? Normal >=60 [facility] Comment on above: Order Comment: Speci men Type: BLOOD SPECIMENOrdering Facility: [facility] Address: [address] [place] [address] Result Comment: Luzmaria mated Glomerular Filtration Rate [...] Performed By: #### 2 4321-2, , 2776-05 ####[facility]OSPITALIA [id number] [place] [address] [place] Glucose [Mass/Vol] 136 mg/dL High 74-99 [facility] Comment on above: Order Comment: Shira feldman Type: BLOOD SPECIMENOrdering Facility: [facility] Address: [address] [place] [address] Result Comment: The [place] [employer] (ADA) provides guidance for cutoff [...] Standards of Medical Care in Diabetes 2016, [place] [employer]. Diabetes Care. 2016.39(Suppl 1). Performed By: #### 2 4321-2, , 2776-05 ####[facility] LABORATORYCLIA [id number] [place] [id number] [place] Potassium [Moles/Vol] 4.1 mmol/L Normal 3.7-5.1 [facility] Comment on above: Order Comment: Shira feldman Type: BLOOD SPECIMENOrdering Facility: [facility] Address: [address] [place] [id number] Performed By: #### 2 4321-2, , 2776-05 ####[facility] LABORATORYCLIA [id number] [place] [address] [place] Sodium [Moles/Vol] 133 mmol/L Low 136-144 [facility] Comment on above: Order Comment: Speci men Type: BLOOD SPECIMENOrdering Facility: [facility] Address: [address] [place] [address] Performed By: #### 2 4321-2, 93242-8, 2777-1 ####[facility] LABORATORYCLIA [id number] [address] [place] Urea nitrogen [Mass/Vol] 40 mg/dL High 9-24 [facility] Comment on above: Order Comment: Speci men Type: BLOOD SPECIMENOrdering Facility: [facility] Address: [address] [place] [address] Performed By: #### 2 4321-2, , 2777 ####[facility] LABORATORYCLIA [id number] [address] OF [facility] CASE MANAGEMon 08-03-2021 CASE MANAGEM Normal [facility] CBC W Auto Differential pane l (Bld)on 08-03-2021 Basophils (Bld) [#/Vol] 0.06 10*3/uL Normal <0.11 [facility] Comment on above: Order Comment: Speci men Type: BLOOD SPECIMENOrdering Facility: [facility] Address: [address] [place] [address] Performed By: #### 5 7021-8 ####[facility] LABORATORYCLIA [id number] [address] [place] Basophils/100 WBC (Bld) 0.5 % Normal [facility] Comment on above: Order Comment: Speci men Type: BLOOD SPECIMENOrdering Facility: [facility] Address: [address] [place] [address] Performed By: #### 5 7021-8 ####[facility] LABORATORYCLIA [id number] [place] [address] [place] Differential cell count method Nom (Bld) Auto Normal [facility] Comment on above: Order Comment: Speci men Type: BLOOD SPECIMENOrdering Facility: [facility] Address: [address] [place] [address] Performed By: #### 5 7021-8 ####[facility] LABORATORYCLIA [id number] [address] [place] Eosinophils (Bld) [#/Vol] 0.23 10*3/uL Normal <0.46 [facility] Comment on above: Order Comment: Speci men Type: BLOOD SPECIMENOrdering Facility: [facility] Address: [address] [place] [address] Performed By: #### 5 7021-8 ####[facility] LABORATORYCLIA [id number] [address] Eosinophils/100 WBC (Bld) 1.8 % Normal [facility] Comment on above: Order Comment: Speci men Type: BLOOD SPECIMENOrdering Facility: [facility] Address: [address] [place] [address] Performed By: #### 5 7021-8 ####[facility] LABORATORYCLIA [id number] [address] Erythrocyte distribution width (RBC) [Ratio] 17.6 % High 11.5-15.0 [facility] Comment on above: Order Comment: Speci men Type: BLOOD SPECIMENOrdering Facility: [facility] Address: [address] [place] [address] Performed By: #### 5 7021-8 ####[facility] LABORATORYCLIA [id number] [address] Hematocrit (Bld) [Volume fraction] 30.7 % Low 39.0-51.0 [facility] Comment on above: Order Comment: Speci men Type: BLOOD SPECIMENOrdering Facility: [facility] Address: [address] [place] [address] Performed By: #### 5 7021-8 ####[facility] LABORATORYCLIA [id number] [address] OF [facility] Hemoglobin (Bld) [Mass/Vol] 9.3 g/dL Low 13.0-17.0 [facility] Comment on above: Order Comment: Speci men Type: BLOOD SPECIMENOrdering Facility: [facility] Address: [address] [place] [address] Performed By: #### 5 7021-8 ####[facility] LABORATORYCLIA [id number] [address] IMMATURE GRAN % 0.6 % Normal [facility] Comment on above: Order Comment: Speci men Type: BLOOD SPECIMENOrdering Facility: [facility] Address: [address] [place] [address] Performed By: #### 5 7021-8 ####[facility] LABORATORYCLIA [id number] [address] IMMATURE GRAN ABS 0.08 k/uL Normal <0.10 [facility] Comment on above: Order Comment: Speci men Type: BLOOD SPECIMENOrdering Facility: [facility] Address: [address] [place] [address] Performed By: #### 5 7021-8 ####[facility] LABORATORYCLIA [id number] [address] Lymphocytes (Bld) [#/Vol] 2.45 10*3/uL Normal 1.00-4.00 [facility] Comment on above: Order Comment: Speci men Type: BLOOD SPECIMENOrdering Facility: [facility] Address: [address] [place] [address] Performed By: #### 5 7021-8 ####[facility] LABORATORYCLIA [id number] [address] Lymphocytes/100 WBC (Bld) 19.7 % Normal [facility] Comment on above: Order Comment: Speci men Type: BLOOD SPECIMENOrdering Facility: [facility] Address: [address] [place] [address] Performed By: #### 5 7021-8 ####[facility] LABORATORYCLIA [id number] [address] MCH (RBC) [Entitic mass] 28.2 pg Normal 26.0-34.0 [facility] Comment on above: Order Comment: Speci men Type: BLOOD SPECIMENOrdering Facility: [facility] Address: [address] [place] [address] Performed By: #### 5 7021-8 ####[facility] LABORATORYCLIA [id number] [address] MCHC (RBC) [Mass/Vol] 30.3 g/dL Low 30.5-36.0 [facility] Comment on above: Order Comment: Speci men Type: BLOOD SPECIMENOrdering Facility: [facility] Address: [address] [place] [address] Performed By: #### 5 7021-8 ####[facility] LABORATORYCLIA [id number] [address] MCV (RBC) [Entitic vol] 93.0 fL Normal 80.0-100.0 [facility] Comment on above: Order Comment: Speci men Type: BLOOD SPECIMENOrdering Facility: [facility] Address: [address] [place] [address] Performed By: #### 5 7021-8 ####[facility] LABORATORYCLIA [id number] [address] Monocytes (Bld) [#/Vol] 0.72 10*3/uL Normal <0.87 [facility] Comment on above: Order Comment: Speci men Type: BLOOD SPECIMENOrdering Facility: [facility] Address: [address] [place] [address] Performed By: #### 5 7021-8 ####[facility] LABORATORYCLIA [id number] [address] Monocytes/100 WBC (Bld) 5.8 % Normal [facility] Comment on above: Order Comment: Speci men Type: BLOOD SPECIMENOrdering Facility: [facility] Address: [address] [place] [address] Performed By: #### 5 7021-8 ####[facility] LABORATORYCLIA [id number] [address] [place] Neutrophils (Bld) [#/Vol] 8.92 10*3/uL High 1.45-7.50 [facility] Comment on above: Order Comment: Speci men Type: BLOOD SPECIMENOrdering Facility: [facility] Address: [address] [place] [address] Performed By: #### 5 7021-8 ####[facility] LABORATORYCLIA [id number] [address] [place] Neutrophils/100 WBC (Bld) 71.6 % Normal [facility] Comment on above: Order Comment: Speci men Type: BLOOD SPECIMENOrdering Facility: [facility] Address: [address] [place] [address] Performed By: #### 5 7021-8 ####[facility] LABORATORYCLIA [id number] [address] [place] Nucleated RBC (Bld) [#/Vol] 10*3/uL Normal <0.01 [facility] Comment on above: Order Comment: Speci men Type: BLOOD SPECIMENOrdering Facility: [facility] Address: [address] [place] [address] Performed By: #### 5 7021-8 ####[facility] LABORATORYCLIA [id number] [address] [place] Nucleated RBC/100 WBC (Bld) [Ratio] 0.0 /100 WBC Normal [facility] Comment on above: Order Comment: Speci men Type: BLOOD SPECIMENOrdering Facility: [facility] Address: [address] [place] [address] Performed By: #### 5 7021-8 ####[facility] LABORATORYCLIA [id number] [place] [address] Platelet mean volume (Bld) [Entitic vol] 10.2 fL Normal 9.0-12.7 [facility] Comment on above: Order Comment: Speci men Type: BLOOD SPECIMENOrdering Facility: [facility] Address: [address] [place] [address] Performed By: #### 5 7021-8 ####[facility] LABORATORYCLIA [id number] [address] [place] Platelets (Bld) [#/Vol] 352 10*3/uL Normal 150-400 [facility] Comment on above: Order Comment: Speci men Type: BLOOD SPECIMENOrdering Facility: [facility] Address: [address] [place] [address] Performed By: #### 5 7021-8 ####[facility] LABORATORYCLIA [id number] [address] STATES OF [facility] RBC (Bld) [#/Vol] 3.30 10*6/uL Low 4.20-6.00 [facility] Comment on above: Order Comment: Speci men Type: BLOOD SPECIMENOrdering Facility: [facility] Address: [address] [place] [address] Performed By: #### 5 7021-8 ####[facility] LABORATORYCLIA [id number] [address] [place] WBC (Bld) [#/Vol] 12.46 10*3/uL High 3.70-11.00 [facility] Comment on above: Order Comment: Speci men Type: BLOOD SPECIMENOrdering Facility: [facility] Address: [address] [place] [address] Performed By: #### 5 7021-8 ####[facility] LABORATORYCLIA [id number] [address] OF [facility] CONSULT PROGon 08-03-2021 CONSULT PROG Normal [facility] Magnesium SerPl-mCncon 08-03 Magnesium [Mass/Vol] 2.2 mg/dL Normal 1.7-2.3 [facility] Comment on above: Order Comment: Speci men Type: BLOOD SPECIMENOrdering Facility: [facility] Address: [address] [place] [address] Performed By: #### 2 4321-2, 94916-1, 2776- ####[facility] LABORATORYCLIA [id number] [address] STATES OF [facility] NURSING PROGon 08-03-2021 NURSING PROG Normal [facility] Phosphate SerPl-mCncon 08-03 Phosphate [Mass/Vol] 4.2 mg/dL Normal 2.7-4.8 [facility] Comment on above: Order Comment: Speci men Type: BLOOD SPECIMENOrdering Facility: [facility] Address: [address] [place] [address] Performed By: #### 2 4321-2, , 2776-05 ####[facility] LABORATORYCLIA [id number] [address] aPTT PPPon 08-03-2021 aPTT Coag (PPP) [Time] 50.0 s High 23.0-32.4 [facility] Comment on above: Order Comment: Speci men Type: BLOOD SPECIMENOrdering Facility: [facility] Address: [address] [place] [address] Performed By: #### 1 4979-9 ####[facility] LABORATORYCLIA [id number] [address] STATES OF [facility] CBC W Auto Differential pane l (Bld)on 08-02-2021 Basophils (Bld) [#/Vol] 10*3/uL Normal <0.11 [facility] Comment on above: Order Comment: Speci men Type: BLOOD SPECIMENOrdering Facility: [facility] Address: [address] [place] [address] Performed By: #### 5 7021-8 ####[facility] LABORATORYCLIA [id number] [address] Basophils/100 WBC (Bld) 0.2 % Normal [facility] Comment on above: Order Comment: Speci men Type: BLOOD SPECIMENOrdering Facility: [facility] Address: [address] [place] [address] Performed By: #### 5 7021-8 ####[facility] LABORATORYCLIA [id number] [place] [address] [place] Differential cell count method Nom (Bld) Auto Normal [facility] Comment on above: Order Comment: Speci men Type: BLOOD SPECIMENOrdering Facility: [facility] Address: [address] [place] [address] Performed By: #### 5 7021-8 ####[facility] LABORATORYCLIA [id number] [place] [address] [place] Eosinophils (Bld) [#/Vol] 10*3/uL Normal <0.46 [facility] Comment on above: Order Comment: Speci men Type: BLOOD SPECIMENOrdering Facility: [facility] Address: [address] [place] [address] Performed By: #### 5 7021-8 ####[facility] LABORATORYCLIA [id number] [address] STATES OF [facility] Eosinophils/100 WBC (Bld) 0.0 % Normal [facility] Comment on above: Order Comment: Speci men Type: BLOOD SPECIMENOrdering Facility: [facility] Address: [address] [place] [address] Performed By: #### 5 7021-8 ####[facility] LABORATORYCLIA [id number] [place] [address] [place] Erythrocyte distribution width (RBC) [Ratio] 17.3 % High 11.5-15.0 [facility] Comment on above: Order Comment: Speci men Type: BLOOD SPECIMENOrdering Facility: [facility] Address: [address] [place] [address] Performed By: #### 5 7021-8 ####[facility] LABORATORYCLIA [id number] [address] Hematocrit (Bld) [Volume fraction] 30.8 % Low 39.0-51.0 [facility] Comment on above: Order Comment: Speci men Type: BLOOD SPECIMENOrdering Facility: [facility] Address: [address] [place] [address] Performed By: #### 5 7021-8 ####[facility] LABORATORYCLIA [id number] [address] [place] Hemoglobin (Bld) [Mass/Vol] 9.7 g/dL Low 13.0-17.0 [facility] Comment on above: Order Comment: Speci men Type: BLOOD SPECIMENOrdering Facility: [facility] Address: [address] [place] [address] Performed By: #### 5 7021-8 ####[facility] LABORATORYCLIA [id number] [address] IMMATURE GRAN % 0.5 % Normal [facility] Comment on above: Order Comment: Speci men Type: BLOOD SPECIMENOrdering Facility: [facility] Address: [address] [place] [address] Performed By: #### 5 7021-8 ####[facility] LABORATORYCLIA [id number] [address] IMMATURE GRAN ABS 0.07 k/uL Normal <0.10 [facility] Comment on above: Order Comment: Speci men Type: BLOOD SPECIMENOrdering Facility: [facility] Address: [address] [place] [address] Performed By: #### 5 7021-8 ####[facility] LABORATORYCLIA [id number] [address] [place] Lymphocytes (Bld) [#/Vol] 1.60 10*3/uL Normal 1.00-4.00 [facility] Comment on above: Order Comment: Speci men Type: BLOOD SPECIMENOrdering Facility: [facility] Address: [address] [place] [address] Performed By: #### 5 7021-8 ####[facility] LABORATORYCLIA [id number] [address] Lymphocytes/100 WBC (Bld) 12.1 % Normal [facility] Comment on above: Order Comment: Speci men Type: BLOOD SPECIMENOrdering Facility: [facility] Address: [address] [place] [address] Performed By: #### 5 7021-8 ####[facility] LABORATORYCLIA [id number] [address] MCH (RBC) [Entitic mass] 28.6 pg Normal 26.0-34.0 [facility] Comment on above: Order Comment: Speci men Type: BLOOD SPECIMENOrdering Facility: [facility] Address: [address] [place] [address] Performed By: #### 5 7021-8 ####[facility] LABORATORYCLIA [id number] [address] MCHC (RBC) [Mass/Vol] 31.5 g/dL Normal 30.5-36.0 [facility] Comment on above: Order Comment: Speci men Type: BLOOD SPECIMENOrdering Facility: [facility] Address: [address] [place] [address] Performed By: #### 5 7021-8 ####[facility]ORATORYCLIA [id number] [address] MCV (RBC) [Entitic vol] 90.9 fL Normal 80.0-100.0 [facility] Comment on above: Order Comment: Speci men Type: BLOOD SPECIMENOrdering Facility: [facility] Address: [address] [place] [address] Performed By: #### 5 7021-8 ####[facility] LABORATORYCLIA [id number] [address] Monocytes (Bld) [#/Vol] 0.39 10*3/uL Normal <0.87 [facility] Comment on above: Order Comment: Speci men Type: BLOOD SPECIMENOrdering Facility: [facility] Address: [address] [place] [address] Performed By: #### 5 7021-8 ####[facility] LABORATORYCLIA [id number] [address] [place] Monocytes/100 WBC (Bld) 3.0 % Normal [facility] Comment on above: Order Comment: Speci men Type: BLOOD SPECIMENOrdering Facility: [facility] Address: [address] [place] [address] Performed By: #### 5 7021-8 ####[facility]ORATORYCLIA [id number] [place] [address] [place] Neutrophils (Bld) [#/Vol] 11.09 10*3/uL High 1.45-7.50 [facility] Comment on above: Order Comment: Speci men Type: BLOOD SPECIMENOrdering Facility: [facility] Address: [address] [place] [address] Performed By: #### 5 7021-8 ####[facility] LABORATORYCLIA [id number] [address] [place] Neutrophils/100 WBC (Bld) 84.2 % Normal [facility] Comment on above: Order Comment: Speci men Type: BLOOD SPECIMENOrdering Facility: [facility] Address: [address] [place] [address] Performed By: #### 5 7021-8 ####[facility]ORATORYCLIA [id number] [place] [address] [place] Nucleated RBC (Bld) [#/Vol] 10*3/uL Normal <0.01 [facility] Comment on above: Order Comment: Speci men Type: BLOOD SPECIMENOrdering Facility: [facility] Address: [address] [place] [address] Performed By: #### 5 7021-8 ####[facility]ORATORYCLIA [id number] [address] [place] Nucleated RBC/100 WBC (Bld) [Ratio] 0.0 /100 WBC Normal [facility] Comment on above: Order Comment: Speci men Type: BLOOD SPECIMENOrdering Facility: [facility] Address: [address] [place] [address] Performed By: #### 5 7021-8 ####[facility] LABORATORYCLIA [id number] [place] [address] [place] Platelet mean volume (Bld) [Entitic vol] 10.0 fL Normal 9.0-12.7 [facility] Comment on above: Order Comment: Speci men Type: BLOOD SPECIMENOrdering Facility: [facility] Address: [address] [place] [address] Performed By: #### 5 7021-8 ####[facility] LABORATORYCLIA [id number] [place] [address] [place] Platelets (Bld) [#/Vol] 358 10*3/uL Normal 150-400 [facility] Comment on above: Order Comment: Speci men Type: BLOOD SPECIMENOrdering Facility: [facility] Address: [address] [place] [address] Performed By: #### 5 7021-8 ####[facility]ORATORYCLIA [id number] [place] [address] [place] RBC (Bld) [#/Vol] 3.39 10*6/uL Low 4.20-6.00 [facility] Comment on above: Order Comment: Speci men Type: BLOOD SPECIMENOrdering Facility: [facility] Address: [address] [place] [address] Performed By: #### 5 7021-8 ####[facility] LABORATORYCLIA [id number] [place] [address] [place] WBC (Bld) [#/Vol] 13.17 10*3/uL High 3.70-11.00 [facility] Comment on above: Order Comment: Speci men Type: BLOOD SPECIMENOrdering Facility: [facility] Address: [address] [place] [address] Performed By: #### 5 7021-8 ####[facility] LABORATORYCLIA [id number] [address] OF [facility] NURSING PROGon 08-02-2021 NURSING PROG Normal [facility] THERAPY NTon 08-02-2021 THERAPY NT Normal [facility] aPTT PPPon 08-02-2021 aPTT Coag (PPP) [Time] 54.9 s High 23.0-32.4 [facility] Comment on above: Order Comment: Speci men Type: BLOOD SPECIMENOrdering Facility: [facility] Address: [address] [place] [address] Performed By: #### 1 4979-9 ####[facility] LABORATORYCLIA [id number] [address] [place] ALLIED HEALTHon 08-01-2021 ALLIED HEALTH Normal [facility] ALLIED HEALTH Normal [facility] Basic metabolic 2000 panelon 08-01-2021 Anion gap [Moles/Vol] 12 mmol/L Normal 9-18 [facility] Comment on above: Order Comment: Speci men Type: BLOOD SPECIMENOrdering Facility: [facility] Address: [address] [place] [address] Performed By: #### 2 4321-2, 07914-7, 91965-0, 2777-1 ####[facility] LABORATORYCLIA [id number] [place] [address] [place] Calcium [Mass/Vol] 9.1 mg/dL Normal 8.5-10.2 [facility] Comment on above: Order Comment: Speci men Type: BLOOD SPECIMENOrdering Facility: [facility] Address: [address] [place] [address] Performed By: #### 2 4321-2, 94446-1, 34527-6, 2777-1 ####[facility] LABORATORYCLIA [id number] [place] [address] [place] Chloride [Moles/Vol] 96 mmol/L Low 97-105 [facility] Comment on above: Order Comment: Speci men Type: BLOOD SPECIMENOrdering Facility: [facility] Address: [address] [place], [place] [id number] Performed By: #### 2 4321-2, 52303-0, 38135-2, 277- ####[facility] LABORATORYCLIA [id number] [place] [address] [place] CO2 [Moles/Vol] 27 mmol/L Normal 22-30 [facility] Comment on above: Order Comment: Speci men Type: BLOOD SPECIMENOrdering Facility: [facility] Address: [address] [place] [address] Performed By: #### 2 4321-2, 98381-0, 66022-1, 2776- ####[facility]ORATORYCLIA [id number] [address] STATES OF [facility] Creatinine [Mass/Vol] 0.64 mg/dL Low 0.73-1.22 [facility] Comment on above: Order Comment: Speci men Type: BLOOD SPECIMENOrdering Facility: [facility] Address: [address] [place] [address] Performed By: #### 2 4321-2, 81702-4, 34484-6, 2776-05 ####[facility] LABORATORYCLIA [id number] [address] [place] ESTIMATED GLOMERULAR FILTRATION RATE 102 mL/min/1.73m??? Normal >=60 [facility] Comment on above: Order Comment: Speci men Type: BLOOD SPECIMENOrdering Facility: [facility] Address: [address] [place] [address] Result Comment: Luzmaria mated Glomerular Filtration Rate [...] actual GFR. Performed By: #### 2 4321-2, 24399-9, 32072-3, 2777-1 ####[facility] LABORATORYCLIA [id number] [place] [address] [place] Glucose [Mass/Vol] 122 mg/dL High 74-99 [facility] Comment on above: Order Comment: Shira francia Type: BLOOD SPECIMENOrdering Facility: [facility] Address: [address] [place] [address] Result Comment: The [place] [employer] (ADA) provides guidance for cutoff [...] Standards of Medical Care in Diabetes 2016, [place] [employer]. Diabetes Care. 2016.39(Suppl 1). Performed By: #### 2 4321-2, 03942-6, 96336-8, 2777-1 ####[facility]ORATORYCLIA [id number] [place] [address] [place] Potassium [Moles/Vol] 4.2 mmol/L Normal 3.7-5.1 [facility] Comment on above: Order Comment: Shira francia Type: BLOOD SPECIMENOrdering Facility: [facility] Address: [address] [address] Performed By: #### 2 4321-2, 19661-6, 38150-0, 2777-1 ####[facility]ORATORYCLIA [id number] [place] [address] [place] Sodium [Moles/Vol] 135 mmol/L Low 136-144 [facility] Comment on above: Order Comment: Johni francia Type: BLOOD SPECIMENOrdering Facility: [facility] Address: [address] [address] Performed By: #### 2 4321-2, 68290-8, 04570-3, 2777-1 ####[facility]ORATORYCLIA [id number] [place] [address] [place] Urea nitrogen [Mass/Vol] 36 mg/dL High 9-24 [facility] Comment on above: Order Comment: Speci men Type: BLOOD SPECIMENOrdering Facility: [facility] Address: [address] [place] [address] Performed By: #### 2 4321-2, 69406-9, 18912-8, 2777-1 ####[facility]ORATORYCLIA [id number] [address] STATES OF [facility] CASE MANAGEMon 08-01-2021 CASE MANAGEM Normal [facility] CBC W Auto Differential pane l (Bld)on 08-01-2021 Basophils (Bld) [#/Vol] 0.04 10*3/uL Normal <0.11 [facility] Comment on above: Order Comment: Speci men Type: BLOOD SPECIMENOrdering Facility: [facility] Address: [address] [place] [address] Performed By: #### 5 7021-8 ####[facility]ORATORYCLIA [id number] [address] [place] Basophils/100 WBC (Bld) 0.3 % Normal [facility] Comment on above: Order Comment: Speci men Type: BLOOD SPECIMENOrdering Facility: [facility] Address: [address] [place] [address] Performed By: #### 5 7021-8 ####[facility]ORATORYCLIA [id number] [address] STATES OF [facility] Differential cell count method Nom (Bld) Auto Normal [facility] Comment on above: Order Comment: Speci men Type: BLOOD SPECIMENOrdering Facility: [facility] Address: [address] [place] [address] Performed By: #### 5 7021-8 ####[facility]ORATORYCLIA [id number] [address] [place] Eosinophils (Bld) [#/Vol] 0.37 10*3/uL Normal <0.46 [facility] Comment on above: Order Comment: Speci men Type: BLOOD SPECIMENOrdering Facility: [facility] Address: [address] [place] [address] Performed By: #### 5 7021-8 ####[facility]ORATORYCLIA [id number] [address] [place] Eosinophils/100 WBC (Bld) 3.1 % Normal [facility] Comment on above: Order Comment: Speci men Type: BLOOD SPECIMENOrdering Facility: [facility] Address: [address] [place] [address] Performed By: #### 5 7021-8 ####[facility]ORATORYCLIA [id number] [address] Erythrocyte distribution width (RBC) [Ratio] 17.5 % High 11.5-15.0 [facility] Comment on above: Order Comment: Speci men Type: BLOOD SPECIMENOrdering Facility: [facility] Address: [address] [place] [address] Performed By: #### 5 7021-8 ####[facility]ORATORYCLIA [id number] [address] [place] Hematocrit (Bld) [Volume fraction] 30.1 % Low 39.0-51.0 [facility] Comment on above: Order Comment: Speci men Type: BLOOD SPECIMENOrdering Facility: [facility] Address: [address] [place] [address] Performed By: #### 5 7021-8 ####[facility]ORATORYCLIA [id number] [address] [place] Hemoglobin (Bld) [Mass/Vol] 9.1 g/dL Low 13.0-17.0 [facility] Comment on above: Order Comment: Speci men Type: BLOOD SPECIMENOrdering Facility: [facility] Address: [address] [address] Performed By: #### 5 7021-8 ####[facility]ORATORYCLIA [id number] [address] IMMATURE GRAN % 0.6 % Normal [facility] Comment on above: Order Comment: Speci men Type: BLOOD SPECIMENOrdering Facility: [facility] Address: [address] [place] [address] Performed By: #### 5 7021-8 ####[facility]ORATORYCLIA [id number] [address] IMMATURE GRAN ABS 0.07 k/uL Normal <0.10 [facility] Comment on above: Order Comment: Speci men Type: BLOOD SPECIMENOrdering Facility: [facility] Address: [address] [place] [address] Performed By: #### 5 7021-8 ####[facility]ORATORYCLIA [id number] [address] Lymphocytes (Bld) [#/Vol] 2.05 10*3/uL Normal 1.00-4.00 [facility] Comment on above: Order Comment: Speci men Type: BLOOD SPECIMENOrdering Facility: [facility] Address: [address] [place] [address] Performed By: #### 5 7021-8 ####[facility]ORATORYCLIA [id number] [address] Lymphocytes/100 WBC (Bld) 17.1 % Normal [facility] Comment on above: Order Comment: Speci men Type: BLOOD SPECIMENOrdering Facility: [facility] Address: [address] [place] [address] Performed By: #### 5 7021-8 ####[facility]ORATORYCLIA [id number] [address] MCH (RBC) [Entitic mass] 27.7 pg Normal 26.0-34.0 [facility] Comment on above: Order Comment: Speci men Type: BLOOD SPECIMENOrdering Facility: [facility] Address: [address] [place] [address] Performed By: #### 5 7021-8 ####[facility]ORATORYCLIA [id number] [address] MCHC (RBC) [Mass/Vol] 30.2 g/dL Low 30.5-36.0 [facility] Comment on above: Order Comment: Speci men Type: BLOOD SPECIMENOrdering Facility: [facility] Address: [address] [place] [address] Performed By: #### 5 7021-8 ####[facility]ORATORYCLIA [id number] [address] MCV (RBC) [Entitic vol] 91.5 fL Normal 80.0-100.0 [facility] Comment on above: Order Comment: Speci men Type: BLOOD SPECIMENOrdering Facility: [facility] Address: [address] [place] [address] Performed By: #### 5 7021-8 ####[facility]ORATORYCLIA [id number] [address] Monocytes (Bld) [#/Vol] 0.53 10*3/uL Normal <0.87 [facility] Comment on above: Order Comment: Speci men Type: BLOOD SPECIMENOrdering Facility: [facility] Address: [address] [place] [address] Performed By: #### 5 7021-8 ####[facility]ORATORYCLIA [id number] [address] Monocytes/100 WBC (Bld) 4.4 % Normal [facility] Comment on above: Order Comment: Speci men Type: BLOOD SPECIMENOrdering Facility: [facility] Address: [address] [place] [address] Performed By: #### 5 7021-8 ####[facility] LABORATORYCLIA [id number] [place] [address] [place] Neutrophils (Bld) [#/Vol] 8.91 10*3/uL High 1.45-7.50 [facility] Comment on above: Order Comment: Speci men Type: BLOOD SPECIMENOrdering Facility: [facility] Address: [address] [place] [address] Performed By: #### 5 7021-8 ####[facility]ORATORYCLIA [id number] [address] [place] Neutrophils/100 WBC (Bld) 74.5 % Normal [facility] Comment on above: Order Comment: Speci men Type: BLOOD SPECIMENOrdering Facility: [facility] Address: [address] [place] [address] Performed By: #### 5 7021-8 ####[facility]ORATORYCLIA [id number] [address] [place] Nucleated RBC (Bld) [#/Vol] 10*3/uL Normal <0.01 [facility] Comment on above: Order Comment: Speci men Type: BLOOD SPECIMENOrdering Facility: [facility] Address: [address] [place] [address] Performed By: #### 5 7021-8 ####[facility]ORATORYCLIA [id number] [address] [place] Nucleated RBC/100 WBC (Bld) [Ratio] 0.0 /100 WBC Normal [facility] Comment on above: Order Comment: Speci men Type: BLOOD SPECIMENOrdering Facility: [facility] Address: [address] [place] [address] Performed By: #### 5 7021-8 ####[facility] LABORATORYCLIA [id number] [address] [place] Platelet mean volume (Bld) [Entitic vol] 10.4 fL Normal 9.0-12.7 [facility] Comment on above: Order Comment: Speci men Type: BLOOD SPECIMENOrdering Facility: [facility] Address: [address] [place] [address] Performed By: #### 5 7021-8 ####[facility] LABORATORYCLIA [id number] [address] STATES OF [facility] Platelets (Bld) [#/Vol] 319 10*3/uL Normal 150-400 [facility] Comment on above: Order Comment: Speci men Type: BLOOD SPECIMENOrdering Facility: [facility] Address: [address] [place] [address] Performed By: #### 5 7021-8 ####[facility] LABORATORYCLIA [id number] [place] [address] [place] RBC (Bld) [#/Vol] 3.29 10*6/uL Low 4.20-6.00 [facility] Comment on above: Order Comment: Speci men Type: BLOOD SPECIMENOrdering Facility: [facility] Address: [address] [place] [address] Performed By: #### 5 7021-8 ####[facility] LABORATORYCLIA [id number] [address] OF [facility] WBC (Bld) [#/Vol] 11.97 10*3/uL High 3.70-11.00 [facility] Comment on above: Order Comment: Speci men Type: BLOOD SPECIMENOrdering Facility: [facility] Address: [address] [place] [address] Performed By: #### 5 7021-8 ####[facility] LABORATORYCLIA [id number] [address] OF [place] CT BRAIN WO IVCONon 08-02-19 CT BRAIN WO IVCON Normal [facility] Magnesium SerPl-mCncon 08-01 Magnesium [Mass/Vol] 2.4 mg/dL High 1.7-2.3 [facility] Comment on above: Order Comment: Speci men Type: BLOOD SPECIMENOrdering Facility: [facility] Address: [address] [place] [address] Performed By: #### 2 4321-2, 51515-8, 74788-7, 2777-1 ####[facility] LABORATORYCLIA [id number] [address] [place] NURSING PROGon 08-01-2021 NURSING PROG Normal [facility] NUTRITIONon 08-01-2021 NUTRITION Normal [facility] Phosphate SerPl-mCncon 08-01 Phosphate [Mass/Vol] 3.3 mg/dL Normal 2.7-4.8 [facility] Comment on above: Order Comment: Speci men Type: BLOOD SPECIMENOrdering Facility: [facility] Address: [address] [place] [address] Performed By: #### 2 4321-2, 70231-2, 88093-3, 2777-1 ####[facility] LABORATORYCLIA [id number] [address] [place] Prealbumin [Mass/Vol]on 07-06 Prealbumin Nephelometry [Mass/Vol] 30 mg/dL Normal 17-36 [facility] Comment on above: Order Comment: Speci men Type: BLOOD SPECIMENOrdering Facility: [facility] Address: [address] [place] [address] Performed By: #### 2 4321-2, 64968-1, 80896-3, 2777-1 ####[facility] LABORATORYCLIA [id number] [address] [place] THERAPY NTon 08-01-2021 THERAPY NT Normal [facility] THERAPY NT Normal [facility] TYPE AND SCREENon 08-01-2021 ABO O Normal [facility] Comment on above: Order Comment: Speci men Type: BLOOD SPECIMENOrdering Facility: [facility] Address: [address] [place] [address] Performed By: #### T SCR ####[facility] BLOOD BANKCLIA [id number] [address] [place] HISTORICAL AB SCR STATUS Negative Normal [facility] Comment on above: Order Comment: Speci men Type: BLOOD SPECIMENOrdering Facility: [facility] Address: [address] [address] Performed By: #### T SCR ####[facility] BLOOD BANKCLIA [id number] [address] Rh Nom (Bld) Positive Normal [facility] Comment on above: Order Comment: Speci men Type: BLOOD SPECIMENOrdering Facility: [facility] Address: [address] [place] [address] Performed By: #### T SCR ####[facility] BLOOD BANKCLIA [id number] [address] TYPE AND SCREEN EXPIRATION 08/04/2021 23:59 Normal [facility] Comment on above: Order Comment: Speci men Type: BLOOD SPECIMENOrdering Facility: [facility] Address: [address] [place] [address] Performed By: #### T SCR ####[facility] BLOOD BANKCLIA [id number] [address] OF [facility] XR CHEST 1V FRONTALon 2021 XR CHEST 1V FRONTAL Normal [facility] aPTT PPPon 08-01-2021 aPTT Coag (PPP) [Time] 50.9 s High 23.0-32.4 [facility] Comment on above: Order Comment: Speci men Type: BLOOD SPECIMENOrdering Facility: [facility] Address: [address] [place] [address] Performed By: #### 1 4979-9 ####[facility] LABORATORYCLIA [id number] [address] CBC W Auto Differential pane l (Bld)on 07-31-2021 Basophils (Bld) [#/Vol] 0.05 10*3/uL Normal <0.11 [facility] Comment on above: Order Comment: Speci men Type: BLOOD SPECIMENOrdering Facility: [facility] Address: [address] [place] [address] Performed By: #### 5 7021-8 ####[facility] LABORATORYCLIA [id number] [address] [place] Basophils/100 WBC (Bld) 0.4 % Normal [facility] Comment on above: Order Comment: Speci men Type: BLOOD SPECIMENOrdering Facility: [facility] Address: [address] [place] [address] Performed By: #### 5 7021-8 ####[facility] LABORATORYCLIA [id number] [address] [place] Differential cell count method Nom (Bld) Auto Normal [facility] Comment on above: Order Comment: Speci men Type: BLOOD SPECIMENOrdering Facility: [facility] Address: [address] [place] [address] Performed By: #### 5 7021-8 ####[facility] LABORATORYCLIA [id number] [place] [address] [place] Eosinophils (Bld) [#/Vol] 0.51 10*3/uL High <0.46 [facility] Comment on above: Order Comment: Speci men Type: BLOOD SPECIMENOrdering Facility: [facility] Address: [address] [place] [address] Performed By: #### 5 7021-8 ####[facility] LABORATORYCLIA [id number] [address] [place] Eosinophils/100 WBC (Bld) 4.5 % Normal [facility] Comment on above: Order Comment: Speci men Type: BLOOD SPECIMENOrdering Facility: [facility] Address: [address] [place] [address] Performed By: #### 5 7021-8 ####[facility] LABORATORYCLIA [id number] [address] [place] Erythrocyte distribution width (RBC) [Ratio] 17.5 % High 11.5-15.0 [facility] Comment on above: Order Comment: Speci men Type: BLOOD SPECIMENOrdering Facility: [facility] Address: [address] [place] [address] Performed By: #### 5 7021-8 ####[facility] LABORATORYCLIA [id number] [address] Hematocrit (Bld) [Volume fraction] 30.4 % Low 39.0-51.0 [facility] Comment on above: Order Comment: Speci men Type: BLOOD SPECIMENOrdering Facility: [facility] Address: [address] [place] [address] Performed By: #### 5 7021-8 ####[facility] LABORATORYCLIA [id number] [address] Hemoglobin (Bld) [Mass/Vol] 9.2 g/dL Low 13.0-17.0 [facility] Comment on above: Order Comment: Speci men Type: BLOOD SPECIMENOrdering Facility: [facility] Address: [address] [place] [address] Performed By: #### 5 7021-8 ####[facility] LABORATORYCLIA [id number] [address] IMMATURE GRAN % 0.5 % Normal [facility] Comment on above: Order Comment: Speci men Type: BLOOD SPECIMENOrdering Facility: [facility] Address: [address] [place] [address] Performed By: #### 5 7021-8 ####[facility] LABORATORYCLIA [id number] [address] IMMATURE GRAN ABS 0.06 k/uL Normal <0.10 [facility] Comment on above: Order Comment: Speci men Type: BLOOD SPECIMENOrdering Facility: [facility] Address: [address] [place] [address] Performed By: #### 5 7021-8 ####[facility] LABORATORYCLIA [id number] [address] Lymphocytes (Bld) [#/Vol] 1.99 10*3/uL Normal 1.00-4.00 [facility] Comment on above: Order Comment: Speci men Type: BLOOD SPECIMENOrdering Facility: [facility] Address: [address] [place] [address] Performed By: #### 5 7021-8 ####[facility] LABORATORYCLIA [id number] [address] Lymphocytes/100 WBC (Bld) 17.6 % Normal [facility] Comment on above: Order Comment: Speci men Type: BLOOD SPECIMENOrdering Facility: [facility] Address: [address] [place] [address] Performed By: #### 5 7021-8 ####[facility] LABORATORYCLIA [id number] [address] MCH (RBC) [Entitic mass] 28.4 pg Normal 26.0-34.0 [facility] Comment on above: Order Comment: Speci men Type: BLOOD SPECIMENOrdering Facility: [facility] Address: [address] [place] [address] Performed By: #### 5 7021-8 ####[facility] LABORATORYCLIA [id number] [address] MCHC (RBC) [Mass/Vol] 30.3 g/dL Low 30.5-36.0 [facility] Comment on above: Order Comment: Speci men Type: BLOOD SPECIMENOrdering Facility: [facility] Address: [address] [place] [address] Performed By: #### 5 7021-8 ####[facility] LABORATORYCLIA [id number] [address] MCV (RBC) [Entitic vol] 93.8 fL Normal 80.0-100.0 [facility] Comment on above: Order Comment: Speci men Type: BLOOD SPECIMENOrdering Facility: [facility] Address: [address] [place] [address] Performed By: #### 5 7021-8 ####[facility] LABORATORYCLIA [id number] [address] Monocytes (Bld) [#/Vol] 0.57 10*3/uL Normal <0.87 [facility] Comment on above: Order Comment: Speci men Type: BLOOD SPECIMENOrdering Facility: [facility] Address: [address] [place] [address] Performed By: #### 5 7021-8 ####[facility]ORATORYCLIA [id number] [address] [place] Monocytes/100 WBC (Bld) 5.0 % Normal [facility] Comment on above: Order Comment: Speci men Type: BLOOD SPECIMENOrdering Facility: [facility] Address: [address] [place] [address] Performed By: #### 5 7021-8 ####[facility]ORATORYCLIA [id number] [address] [place] Neutrophils (Bld) [#/Vol] 8.12 10*3/uL High 1.45-7.50 [facility] Comment on above: Order Comment: Speci men Type: BLOOD SPECIMENOrdering Facility: [facility] Address: [address] [place] [address] Performed By: #### 5 7021-8 ####[facility] LABORATORYCLIA [id number] [address] Neutrophils/100 WBC (Bld) 72.0 % Normal [facility] Comment on above: Order Comment: Speci men Type: BLOOD SPECIMENOrdering Facility: [facility] Address: [address] [place] [address] Performed By: #### 5 7021-8 ####[facility]ORATORYCLIA [id number] [address] [place] Nucleated RBC (Bld) [#/Vol] 10*3/uL Normal <0.01 [facility] Comment on above: Order Comment: Speci men Type: BLOOD SPECIMENOrdering Facility: [facility] Address: [address] [place] [address] Performed By: #### 5 7021-8 ####[facility]ORATORYCLIA [id number] [place] [address] [place] Nucleated RBC/100 WBC (Bld) [Ratio] 0.0 /100 WBC Normal [facility] Comment on above: Order Comment: Speci men Type: BLOOD SPECIMENOrdering Facility: [facility] Address: [address] [place] [address] Performed By: #### 5 7021-8 ####[facility] LABORATORYCLIA [id number] [place] [address] [place] Platelet mean volume (Bld) [Entitic vol] 10.9 fL Normal 9.0-12.7 [facility] Comment on above: Order Comment: Speci men Type: BLOOD SPECIMENOrdering Facility: [facility] Address: [address] [place] [address] Performed By: #### 5 7021-8 ####[facility] LABORATORYCLIA [id number] [address] [place] Platelets (Bld) [#/Vol] 303 10*3/uL Normal 150-400 [facility] Comment on above: Order Comment: Speci men Type: BLOOD SPECIMENOrdering Facility: [facility] Address: [address] [place] [address] Performed By: #### 5 7021-8 ####[facility] LABORATORYCLIA [id number] [place] [address] [place] RBC (Bld) [#/Vol] 3.24 10*6/uL Low 4.20-6.00 [facility] Comment on above: Order Comment: Speci men Type: BLOOD SPECIMENOrdering Facility: [facility] Address: [address] [place] [address] Performed By: #### 5 7021-8 ####[facility] LABORATORYCLIA [id number] [place] [address] [place] WBC (Bld) [#/Vol] 11.30 10*3/uL High 3.70-11.00 [facility] Comment on above: Order Comment: Speci men Type: BLOOD SPECIMENOrdering Facility: [facility] Address: [address] [place] [address] Performed By: #### 5 7021-8 ####[facility] LABORATORYCLIA [id number] [address] [place] NURSING PROGon 07-31-2021 NURSING PROG Normal [facility] aPTT PPPon 07-31-2021 aPTT Coag (PPP) [Time] 64.9 s High 23.0-32.4 [facility] Comment on above: Order Comment: Speci men Type: BLOOD SPECIMENOrdering Facility: [facility] Address: [address] [place] [address] Performed By: #### 1 4979-9 ####[facility] LABORATORYCLIA [id number] [address] [place] ALLIED HEALTHon 07-30-2021 ALLIED HEALTH Normal [facility] Bacteria CSF Culton 07-31-19 22 Bacteria identified Cx Nom (CSF) CULTURE, CSF: No growth 14 days GRAM STAIN: No organisms seen Few Mononuclear cells Rare Polymorphonuclear leukocytes Gram stain performed on cytospun specimen. Normal [facility] Comment on above: Performed By: #### 6 06-4 ####[facility] LABORATORYCLIA [id number] [place] [address] [place] Basic metabolic 2000 panelon 07-30-2021 Anion gap [Moles/Vol] 9 mmol/L Normal 9-18 [facility] Comment on above: Order Comment: Speci men Type: BLOOD SPECIMENOrdering Facility: [facility] Address: [address] [place] [address] Performed By: #### 2 777-1, 22319-1, 43295-7 ####[facility] LABORATORYCLIA [id number] [place] [address] [place] Calcium [Mass/Vol] 8.9 mg/dL Normal 8.5-10.2 [facility] Comment on above: Order Comment: Speci men Type: BLOOD SPECIMENOrdering Facility: [facility] Address: [address] [place] [address] Performed By: #### 2 777-1, 04423-3, ####[facility] LABORATORYCLIA [id number] [place] [address] [place] Chloride [Moles/Vol] 95 mmol/L Low 97-105 [facility] Comment on above: Order Comment: Speci men Type: BLOOD SPECIMENOrdering Facility: [facility] Address: [address] [place] [address] Performed By: #### 2 777-1, 64661-9, ####[facility] LABORATORYCLIA [id number] [address] [place] CO2 [Moles/Vol] 28 mmol/L Normal 22-30 [facility] Comment on above: Order Comment: Speci men Type: BLOOD SPECIMENOrdering Facility: [facility] Address: [address] [place] [address] Performed By: #### 2 777-1, , ####[facility] LABORATORYCLIA [id number] [address] [place] Creatinine [Mass/Vol] 0.67 mg/dL Low 0.73-1.22 [facility] Comment on above: Order Comment: Speci men Type: BLOOD SPECIMENOrdering Facility: [facility] Address: [address] [place] [address] Performed By: #### 2 777-1, , ####[facility] LABORATORYCLIA [id number] [address] OF [facility] ESTIMATED GLOMERULAR FILTRATION RATE 101 mL/min/1.73m??? Normal >=60 [facility] Comment on above: Order Comment: Speci men Type: BLOOD SPECIMENOrdering Facility: [facility] Address: [address] [place] [address] Result Comment: Luzmaria mated Glomerular Filtration Rate [...] actual GFR. Performed By: #### 2 777-1, 70829-1, ####[facility] LABORATORYCLIA [id number] [place] [address] [place] Glucose [Mass/Vol] 125 mg/dL High 74-99 [facility] Comment on above: Order Comment: Shira feldman Type: BLOOD SPECIMENOrdering Facility: [facility] Address: [address] [place] [address] Result Comment: The [place] [employer] (ADA) provides guidance for cutoff [...] Standards of Medical Care in Diabetes 2016, [place] [employer]. Diabetes Care. 2016.39(Suppl 1). Performed By: #### 2 777-1, , ####[facility] LABORATORYCLIA [id number] [place] [address] [place] Potassium [Moles/Vol] 3.9 mmol/L Normal 3.7-5.1 [facility] Comment on above: Order Comment: Shira feldman Type: BLOOD SPECIMENOrdering Facility: [facility] Address: [address] [facility] [place] [address] Performed By: #### 2 777-1, 09662-3, ####[facility] LABORATORYCLIA [id number] [place] [address] [place] Sodium [Moles/Vol] 132 mmol/L Low 136-144 [facility] Comment on above: Order Comment: Speci men Type: BLOOD SPECIMENOrdering Facility: [facility] Address: [address] [place] [address] Performed By: #### 2 777-1, 49730-5, ####[facility] LABORATORYCLIA [id number] [address] [place] [facility] Urea nitrogen [Mass/Vol] 38 mg/dL High 9-24 [facility] Comment on above: Order Comment: Speci men Type: BLOOD SPECIMENOrdering Facility: [facility] Address: [address] [place] [address] Performed By: #### 2 777-1, 07171-3, ####[facility] LABORATORYCLIA [id number] [address] STATES OF [facility] CBC W Auto Differential pane l (Bld)on 07-30-2021 Basophils (Bld) [#/Vol] 0.04 10*3/uL Normal <0.11 [facility] Comment on above: Order Comment: Speci men Type: BLOOD SPECIMENOrdering Facility: [facility] Address: [address] [place] [address] Performed By: #### 5 7021-8 ####[facility] LABORATORYCLIA [id number] [address] [place] Basophils/100 WBC (Bld) 0.4 % Normal [facility] Comment on above: Order Comment: Speci men Type: BLOOD SPECIMENOrdering Facility: [facility] Address: [address] [place] [address] Performed By: #### 5 7021-8 ####[facility] LABORATORYCLIA [id number] [address] Differential cell count method Nom (Bld) Auto Normal [facility] Comment on above: Order Comment: Speci men Type: BLOOD SPECIMENOrdering Facility: [facility] Address: [address] [place] [address] Performed By: #### 5 7021-8 ####[facility] LABORATORYCLIA [id number] [address] [place] Eosinophils (Bld) [#/Vol] 0.30 10*3/uL Normal <0.46 [facility] Comment on above: Order Comment: Speci men Type: BLOOD SPECIMENOrdering Facility: [facility] Address: [address] [place] [address] Performed By: #### 5 7021-8 ####[facility] LABORATORYCLIA [id number] [address] Eosinophils/100 WBC (Bld) 2.7 % Normal [facility] Comment on above: Order Comment: Speci men Type: BLOOD SPECIMENOrdering Facility: [facility] Address: [address] [place] [address] Performed By: #### 5 7021-8 ####[facility] LABORATORYCLIA [id number] [address] Erythrocyte distribution width (RBC) [Ratio] 17.2 % High 11.5-15.0 [facility] Comment on above: Order Comment: Speci men Type: BLOOD SPECIMENOrdering Facility: [facility] Address: [address] [place] [address] Performed By: #### 5 7021-8 ####[facility] LABORATORYCLIA [id number] [address] [place] Hematocrit (Bld) [Volume fraction] 30.8 % Low 39.0-51.0 [facility] Comment on above: Order Comment: Speci men Type: BLOOD SPECIMENOrdering Facility: [facility] Address: [address] [place] [address] Performed By: #### 5 7021-8 ####[facility] LABORATORYCLIA [id number] [address] [place] Hemoglobin (Bld) [Mass/Vol] 9.4 g/dL Low 13.0-17.0 [facility] Comment on above: Order Comment: Speci men Type: BLOOD SPECIMENOrdering Facility: [facility] Address: [address] [place] [address] Performed By: #### 5 7021-8 ####[facility] LABORATORYCLIA [id number] [address] IMMATURE GRAN % 0.5 % Normal [facility] Comment on above: Order Comment: Speci men Type: BLOOD SPECIMENOrdering Facility: [facility] Address: [address] [place] [address] Performed By: #### 5 7021-8 ####[facility] LABORATORYCLIA [id number] [address] IMMATURE GRAN ABS 0.06 k/uL Normal <0.10 [facility] Comment on above: Order Comment: Speci men Type: BLOOD SPECIMENOrdering Facility: [facility] Address: [address] [place] [address] Performed By: #### 5 7021-8 ####[facility] LABORATORYCLIA [id number] [address] Lymphocytes (Bld) [#/Vol] 1.68 10*3/uL Normal 1.00-4.00 [facility] Comment on above: Order Comment: Speci men Type: BLOOD SPECIMENOrdering Facility: [facility] Address: [address] [place] [address] Performed By: #### 5 7021-8 ####[facility] LABORATORYCLIA [id number] [address] Lymphocytes/100 WBC (Bld) 15.3 % Normal [facility] Comment on above: Order Comment: Speci men Type: BLOOD SPECIMENOrdering Facility: [facility] Address: [address] [place] [address] Performed By: #### 5 7021-8 ####[facility] LABORATORYCLIA [id number] [address] MCH (RBC) [Entitic mass] 28.0 pg Normal 26.0-34.0 [facility] Comment on above: Order Comment: Speci men Type: BLOOD SPECIMENOrdering Facility: [facility] Address: [address] [place] [address] Performed By: #### 5 7021-8 ####[facility] LABORATORYCLIA [id number] [address] STATES OF [facility] MCHC (RBC) [Mass/Vol] 30.5 g/dL Normal 30.5-36.0 [facility] Comment on above: Order Comment: Speci men Type: BLOOD SPECIMENOrdering Facility: [facility] Address: [address] [place] [address] Performed By: #### 5 7021-8 ####[facility] LABORATORYCLIA [id number] [address] STATES OF [facility] MCV (RBC) [Entitic vol] 91.7 fL Normal 80.0-100.0 [facility] Comment on above: Order Comment: Speci men Type: BLOOD SPECIMENOrdering Facility: [facility] Address: [address] [place] [address] Performed By: #### 5 7021-8 ####[facility] LABORATORYCLIA [id number] [address] Monocytes (Bld) [#/Vol] 0.53 10*3/uL Normal <0.87 [facility] Comment on above: Order Comment: Speci men Type: BLOOD SPECIMENOrdering Facility: [facility] Address: [address] [place] [address] Performed By: #### 5 7021-8 ####[facility] LABORATORYCLIA [id number] [address] Monocytes/100 WBC (Bld) 4.8 % Normal [facility] Comment on above: Order Comment: Speci men Type: BLOOD SPECIMENOrdering Facility: [facility] Address: [address] [place] [address] Performed By: #### 5 7021-8 ####[facility] LABORATORYCLIA [id number] [place] [address] [place] Neutrophils (Bld) [#/Vol] 8.39 10*3/uL High 1.45-7.50 [facility] Comment on above: Order Comment: Speci men Type: BLOOD SPECIMENOrdering Facility: [facility] Address: [address] [place] [address] Performed By: #### 5 7021-8 ####[facility] LABORATORYCLIA [id number] [address] [place] Neutrophils/100 WBC (Bld) 76.3 % Normal [facility] Comment on above: Order Comment: Speci men Type: BLOOD SPECIMENOrdering Facility: [facility] Address: [address] [place] [address] Performed By: #### 5 7021-8 ####[facility] LABORATORYCLIA [id number] [address] [place] [facility] Nucleated RBC (Bld) [#/Vol] 10*3/uL Normal <0.01 [facility] Comment on above: Order Comment: Speci men Type: BLOOD SPECIMENOrdering Facility: [facility] Address: [address] [place] [address] Performed By: #### 5 7021-8 ####[facility] LABORATORYCLIA [id number] [address] [place] Nucleated RBC/100 WBC (Bld) [Ratio] 0.0 /100 WBC Normal [facility] Comment on above: Order Comment: Speci men Type: BLOOD SPECIMENOrdering Facility: [facility] Address: [address] [place] [address] Performed By: #### 5 7021-8 ####[facility] LABORATORYCLIA [id number] [address] [place] Platelet mean volume (Bld) [Entitic vol] 10.9 fL Normal 9.0-12.7 [facility] Comment on above: Order Comment: Speci men Type: BLOOD SPECIMENOrdering Facility: [facility] Address: [address] [place], [place] [address] Performed By: #### 5 7021-8 ####[facility] LABORATORYCLIA [id number] [address] Platelets (Bld) [#/Vol] 287 10*3/uL Normal 150-400 [facility] Comment on above: Order Comment: Speci men Type: BLOOD SPECIMENOrdering Facility: [facility] Address: [address] [place] [address] Performed By: #### 5 7021-8 ####[facility] LABORATORYCLIA [id number] [address] RBC (Bld) [#/Vol] 3.36 10*6/uL Low 4.20-6.00 [facility] Comment on above: Order Comment: Speci men Type: BLOOD SPECIMENOrdering Facility: [facility] Address: [address] [place] [address] Performed By: #### 5 7021-8 ####[facility] LABORATORYCLIA [id number] [address] WBC (Bld) [#/Vol] 11.00 10*3/uL Normal 3.70-11.00 [facility] Comment on above: Order Comment: Speci men Type: BLOOD SPECIMENOrdering Facility: [facility] Address: [address] [place] [address] Performed By: #### 5 7021-8 ####[facility] LABORATORYCLIA [id number] [address] CSF MANUAL DIFFon 07-30-2021 DIF TTL, CSF 100 cells counted Normal [facility] Comment on above: Order Comment: Speci men Type: CEREBROSPINAL FLUIDOrdering Facility: [facility] Address: [address] [place] [address] Performed By: #### L [id number], [id number], 97319-8 ####[facility] LABORATORYCLIA [id number] [place] [address] [place] EOSIN%, CSF 0 % Normal [facility] Comment on above: Order Comment: Speci men Type: CEREBROSPINAL FLUIDOrdering Facility: [facility] Address: [address] [place] [address] Performed By: #### L [id number], [id number], 53354-5 ####[facility]ORATORYCLIA [id number] [place] [address] [place] LYMPH%, CSF 75 % Normal 50-90 [facility] Comment on above: Order Comment: Speci men Type: CEREBROSPINAL FLUIDOrdering Facility: [facility] Address: [address] [place] [address] Performed By: #### L [id number], [id number], 98214-0 ####[facility]ORATORYCLIA [id number] [place] [address] [place] MACRO%, CSF 9 % High <1 [facility] Comment on above: Order Comment: Speci men Type: CEREBROSPINAL FLUIDOrdering Facility: [facility] Address: [address] [place] [address] Performed By: #### L [id number], [id number], 86616-8 ####[facility]ORATORYCLIA [id number] [place] [address] [place] MONO%, CSF 10 % Normal 10-50 [facility] Comment on above: Order Comment: Speci men Type: CEREBROSPINAL FLUIDOrdering Facility: [facility] Address: [address] [place] [address] Performed By: #### L [id number], [id number], 50117-9 ####[facility]ORATORYCLIA [id number] [address] [place] OTHER CL%, CSF 4 % Normal [facility] Comment on above: Order Comment: Speci men Type: CEREBROSPINAL FLUIDOrdering Facility: [facility] Address: [address] [place] [address] Result Comment: Path review to follow. Performed By: #### L [id number], FDU4389, 95242-7 ####[facility]ORATORYCLIA [id number] [address] [place] REAC LYMPH %, CSF 2 % Normal [facility] Comment on above: Order Comment: Speci men Type: CEREBROSPINAL FLUIDOrdering Facility: [facility] Address: [address] [place] [address] Performed By: #### L [id number], [id number], 21895-2 ####[facility]ORATORYCLIA [id number] [address] [place] CSF PATHOLOGIST INTERP (LAB REFLEX ORDER-NO BILL)on 07-30-2021 CSF STAFF REVIEW Negative Normal [facility] Comment on above: Order Comment: Speci men Type: CEREBROSPINAL FLUIDOrdering Facility: [facility] Address: [address] [place] [address] Performed By: #### L [id number], [id number], 89602-6 ####[facility] LABORATORYCLIA [id number] [address] Pathologist name Reviewed by Eloise rebolledo MD Normal [facility] Comment on above: Order Comment: Speci men Type: CEREBROSPINAL FLUIDOrdering Facility: [facility] Address: [address] [place] [address] Performed By: #### L [id number], GLK2203, 16314-1 ####[facility]ORATORYCLIA [id number] [address] [place] CT BRAIN WO IVCONon 07-31-[address] BRAIN WO IVCON Normal [facility] Cell count panel (CSF)on Clarity (CSF) Clear Normal Clear [facility] Comment on above: Order Comment: Speci men Type: CEREBROSPINAL FLUIDOrdering Facility: [facility] Address: [address] [place] [address] Performed By: #### L RU2271, JWM0077, 88686-0 ####[facility]ORATORYCLIA [id number] [address] Clarity (Unsp spec) Clear Normal Clear [facility] Comment on above: Order Comment: Speci men Type: CEREBROSPINAL FLUIDOrdering Facility: [facility] Address: [address] [place] [address] Performed By: #### L [id number], [id number], 01019-5 ####[facility] LABORATORYCLIA [id number] [address] Color (CSF) Colorless Normal Colorless [facility] Comment on above: Order Comment: Speci men Type: CEREBROSPINAL FLUIDOrdering Facility: [facility] Address: [address] [place] [address] Performed By: #### L [id number], ZCZ2599, 34528-9 ####[facility] LABORATORYCLIA [id number] [address] Color (Spun CSF) Colorless Normal Colorless [facility] Comment on above: Order Comment: Speci men Type: CEREBROSPINAL FLUIDOrdering Facility: [facility] Address: [address] [place], [place] [address] Performed By: #### L [id number], ZQC7248, 63004-1 ####[facility] LABORATORYCLIA [id number] [address] CSF TUBE NUMBER [employer] Normal [facility] Comment on above: Order Comment: Speci men Type: CEREBROSPINAL FLUIDOrdering Facility: [facility] Address: [address] [place], [place] [address] Performed By: #### L [id number], JON6509, 32786-0 ####[facility]ORATORYCLIA [id number] [address] RBC Manual cnt (CSF) [#/Vol] 9 cells/uL High 0-5 [facility] Comment on above: Order Comment: Speci men Type: CEREBROSPINAL FLUIDOrdering Facility: [facility] Address: [address] [place], [place] [address] Performed By: #### L [id number], [id number], 60535-1 ####[facility] LABORATORYCLIA [id number] [place] [address] [place] WBC Manual cnt (CSF) [#/Vol] 8 cells/uL High 0-5 [facility] Comment on above: Order Comment: Speci men Type: CEREBROSPINAL FLUIDOrdering Facility: [facility] Address: [address] [place] [address] Performed By: #### L [id number], JRX5963, 55092-5 ####[facility]ORATORYCLIA [id number] [address] STATES OF [facility] Glucose CSF-mCncon Glucose (CSF) [Mass/Vol] 65 mg/dL Normal 40-70 [facility] Comment on above: Order Comment: Speci men Type: CEREBROSPINAL FLUIDOrdering Facility: [facility] Address: [address] [place] [address] Result Comment: Lumb ar CSF glucose values of healthy patients are approximately 60% of the plasma values and must always be compared with a concurrently measured plasma value for adequate clinical interpretation.References: 1. Glucose HK (GLUC3) [package insert V 12.0 Finnish]. [employer], [place], [place]. September 2015. 2. Michelle Moore, Loki, H. (2015). Chapter 7: Glucose and Lactate. Marianela Alcocer al.(eds.), Cerebrospinal Fluid in Clinical Neurology. Hickman: [employer]. Performed By: #### 2 342-4, 2880-3 ####[facility]ORATORYCLIA [id number] [address] [place] Magnesium SerPl-ncon 07-30 Magnesium [Mass/Vol] 2.5 mg/dL High 1.7-2.3 [facility] Comment on above: Order Comment: Speci men Type: BLOOD SPECIMENOrdering Facility: [facility] Address: [address] [place] [address] Performed By: #### 2 777-1, 11725-4, 77027-3 ####[facility]ORATORYCLIA [id number] [address] NURSING PROGon 07-30-2021 NURSING PROG Normal [facility] Phosphate SerPl-mCncon 07-30 Phosphate [Mass/Vol] 2.4 mg/dL Low 2.7-4.8 [facility] Comment on above: Order Comment: Speci men Type: BLOOD SPECIMENOrdering Facility: [facility] Address: [address] [place] [address] Performed By: #### 2 777-1, 41041-5, 71179-4 ####[facility]ORATORYCLIA [id number] [address] Prot CSF-mCncon 07-30-2021 Protein (CSF) [Mass/Vol] 50 mg/dL High 15-45 [facility] Comment on above: Order Comment: Speci men Type: CEREBROSPINAL FLUIDOrdering Facility: [facility] Address: [address] [place] [address] Performed By: #### 2 342-4, 2880-3 ####[facility]ORATORYCLIA [id number] [address] aPTT PPPon 07-30-2021 aPTT Coag (PPP) [Time] 64.1 s High 23.0-32.4 [facility] Comment on above: Order Comment: Speci men Type: BLOOD SPECIMENOrdering Facility: [facility] Address: [address] [place] [address] Performed By: #### 1 4979-9 ####[facility]ORATORYCLIA [id number] [address] [place] Bacteria CSF Culton 07-30-19 22 Bacteria identified Cx Nom (CSF) CULTURE, CSF: No growth 14 days GRAM STAIN: No cells or organisms seen Gram stain performed on cytospun specimen. Gram stain confirmed by microbiology Normal [facility] Comment on above: Performed By: #### 6 06-4 ####[facility]ORATORYCLIA [id number] [address] [place] CASE MANAGEMon 07-29-2021 CASE MANAGEM Normal [facility] CBC W Auto Differential pane l (Bld)on 07-29-2021 Basophils (Bld) [#/Vol] 0.03 10*3/uL Normal <0.11 [facility] Comment on above: Order Comment: Speci men Type: BLOOD SPECIMENOrdering Facility: [facility] Address: [address] [place] [address] Performed By: #### 5 7021-8 ####[facility]ORATORYCLIA [id number] [address] Basophils/100 WBC (Bld) 0.3 % Normal [facility] Comment on above: Order Comment: Speci men Type: BLOOD SPECIMENOrdering Facility: [facility] Address: [address] [place] [address] Performed By: #### 5 7021-8 ####[facility]ORATORYCLIA [id number] [address] Differential cell count method Nom (Bld) Auto Normal [facility] Comment on above: Order Comment: Speci men Type: BLOOD SPECIMENOrdering Facility: [facility] Address: [address] [place] [address] Performed By: #### 5 7021-8 ####[facility]ORATORYCLIA [id number] [address] [place] Eosinophils (Bld) [#/Vol] 0.40 10*3/uL Normal <0.46 [facility] Comment on above: Order Comment: Speci men Type: BLOOD SPECIMENOrdering Facility: [facility] Address: [address] [place] [address] Performed By: #### 5 7021-8 ####[facility]ORATORYCLIA [id number] [address] Eosinophils/100 WBC (Bld) 3.9 % Normal [facility] Comment on above: Order Comment: Speci men Type: BLOOD SPECIMENOrdering Facility: [facility] Address: [address] [place] [place] [address] Performed By: #### 5 7021-8 ####[facility]ORATORYCLIA [id number] [address] Erythrocyte distribution width (RBC) [Ratio] 17.1 % High 11.5-15.0 [facility] Comment on above: Order Comment: Speci men Type: BLOOD SPECIMENOrdering Facility: [facility] Address: [address] [place] [address] Performed By: #### 5 7021-8 ####[facility]ORATORYCLIA [id number] [address] Hematocrit (Bld) [Volume fraction] 32.0 % Low 39.0-51.0 [facility] Comment on above: Order Comment: Speci men Type: BLOOD SPECIMENOrdering Facility: [facility] Address: [address] [place] [address] Performed By: #### 5 7021-8 ####[facility]ORATORYCLIA [id number] [address] Hemoglobin (Bld) [Mass/Vol] 9.7 g/dL Low 13.0-17.0 [facility] Comment on above: Order Comment: Speci men Type: BLOOD SPECIMENOrdering Facility: [facility] Address: [address] [place] [address] Performed By: #### 5 7021-8 ####[facility]ORATORYCLIA [id number] [address] IMMATURE GRAN % 0.6 % Normal [facility] Comment on above: Order Comment: Speci men Type: BLOOD SPECIMENOrdering Facility: [facility] Address: [address] [place] [address] Performed By: #### 5 7021-8 ####[facility]ORATORYCLIA [id number] [address] IMMATURE GRAN ABS 0.06 k/uL Normal <0.10 [facility] Comment on above: Order Comment: Speci men Type: BLOOD SPECIMENOrdering Facility: [facility] Address: [address] [place] [address] Performed By: #### 5 7021-8 ####[facility]ORATORYCLIA [id number] [address] Lymphocytes (Bld) [#/Vol] 1.96 10*3/uL Normal 1.00-4.00 [facility] Comment on above: Order Comment: Speci men Type: BLOOD SPECIMENOrdering Facility: [facility] Address: [address] [place] [address] Performed By: #### 5 7021-8 ####[facility]ORATORYCLIA [id number] [address] Lymphocytes/100 WBC (Bld) 19.0 % Normal [facility] Comment on above: Order Comment: Speci men Type: BLOOD SPECIMENOrdering Facility: [facility] Address: [address] [place] [address] Performed By: #### 5 7021-8 ####[facility]ORATORYCLIA [id number] [address] [place] MCH (RBC) [Entitic mass] 28.0 pg Normal 26.0-34.0 [facility] Comment on above: Order Comment: Speci men Type: BLOOD SPECIMENOrdering Facility: [facility] Address: [address] [place] [address] Performed By: #### 5 7021-8 ####[facility]ORATORYCLIA [id number] [address] [place] MCHC (RBC) [Mass/Vol] 30.3 g/dL Low 30.5-36.0 [facility] Comment on above: Order Comment: Speci men Type: BLOOD SPECIMENOrdering Facility: [facility] Address: [address] [place] [address] Performed By: #### 5 7021-8 ####[facility]ORATORYCLIA [id number] [address] [place] MCV (RBC) [Entitic vol] 92.5 fL Normal 80.0-100.0 [facility] Comment on above: Order Comment: Speci men Type: BLOOD SPECIMENOrdering Facility: [facility] Address: [facility] [place] [address] Performed By: #### 5 7021-8 ####[facility]ORATORYCLIA [id number] [place] [address] [place] Monocytes (Bld) [#/Vol] 0.53 10*3/uL Normal <0.87 [facility] Comment on above: Order Comment: Speci men Type: BLOOD SPECIMENOrdering Facility: [facility] Address: [address] [place] [address] Performed By: #### 5 7021-8 ####[facility]ORATORYCLIA [id number] [address] Monocytes/100 WBC (Bld) 5.2 % Normal [facility] Comment on above: Order Comment: Speci men Type: BLOOD SPECIMENOrdering Facility: [facility] Address: [address] [place] [address] Performed By: #### 5 7021-8 ####[facility]ORATORYCLIA [id number] [place] [address] [place] Neutrophils (Bld) [#/Vol] 7.31 10*3/uL Normal 1.45-7.50 [facility] Comment on above: Order Comment: Speci men Type: BLOOD SPECIMENOrdering Facility: [facility] Address: [address] [place] [address] Performed By: #### 5 7021-8 ####[facility]ORATORYCLIA [id number] [address] [place] Neutrophils/100 WBC (Bld) 71.0 % Normal [facility] Comment on above: Order Comment: Speci men Type: BLOOD SPECIMENOrdering Facility: [facility] Address: [address] [place] [address] Performed By: #### 5 7021-8 ####[facility]ATORYCLIA [id number] [address] [place] Nucleated RBC (Bld) [#/Vol] 10*3/uL Normal <0.01 [facility] Comment on above: Order Comment: Speci men Type: BLOOD SPECIMENOrdering Facility: [facility] Address: [address] [place] [address] Performed By: #### 5 7021-8 ####[facility]ATORYCLIA [id number] [address] [place] Nucleated RBC/100 WBC (Bld) [Ratio] 0.0 /100 WBC Normal [facility] Comment on above: Order Comment: Speci men Type: BLOOD SPECIMENOrdering Facility: [facility] Address: [address] [place] [address] Performed By: #### 5 7021-8 ####[facility]ATORYCLIA [id number] [address] Platelet mean volume (Bld) [Entitic vol] 11.2 fL Normal 9.0-12.7 [facility] Comment on above: Order Comment: Speci men Type: BLOOD SPECIMENOrdering Facility: [facility] Address: [address] [place] [address] Performed By: #### 5 7021-8 ####[facility]ATORYCLIA [id number] [address] [place] Platelets (Bld) [#/Vol] 276 10*3/uL Normal 150-400 [facility] Comment on above: Order Comment: Speci men Type: BLOOD SPECIMENOrdering Facility: [facility] Address: [address] [place] [address] Performed By: #### 5 7021-8 ####[facility]ATORYCLIA [id number] [address] [place] RBC (Bld) [#/Vol] 3.46 10*6/uL Low 4.20-6.00 [facility] Comment on above: Order Comment: Speci men Type: BLOOD SPECIMENOrdering Facility: [facility] Address: [address] [place] [address] Performed By: #### 5 7021-8 ####[facility]ORATORYCLIA [id number] [address] STATES OF [facility] WBC (Bld) [#/Vol] 10.29 10*3/uL Normal 3.70-11.00 [facility] Comment on above: Order Comment: Speci men Type: BLOOD SPECIMENOrdering Facility: [facility] Address: [address] [place] [address] Performed By: #### 5 7021-8 ####[facility]ORATORYCLIA [id number] [address] NURSING PROGon 07-29-2021 NURSING PROG Normal [facility] THERAPY NTon 07-29-2021 THERAPY NT Normal [facility] aPTT PPPon 07-29-2021 aPTT Coag (PPP) [Time] 59.2 s High 23.0-32.4 [facility] Comment on above: Order Comment: Speci men Type: BLOOD SPECIMENOrdering Facility: [facility] Address: [address] [place] [address] Performed By: #### 1 4979-9 ####[facility]ORATORYCLIA [id number] [address] [place] ALLIED HEALTHon 07-28-2021 ALLIED HEALTH Normal [facility] Basic metabolic 2000 panelon 07-28-2021 Anion gap [Moles/Vol] 7 mmol/L Low 9-18 [facility] Comment on above: Order Comment: Speci men Type: BLOOD SPECIMENOrdering Facility: [facility] Address: [address] [place] [address] Performed By: #### 1 4338-8, 11981-8, 2777-1, 85472-9 ####[facility]ORATORYCLIA [id number] [address] STATES [facility] Calcium [Mass/Vol] 9.0 mg/dL Normal 8.5-10.2 [facility] Comment on above: Order Comment: Speci men Type: BLOOD SPECIMENOrdering Facility: [facility] Address: [address] [place] [address] Performed By: #### 1 4338-8, 85521-1, 2777-1, 34978-4 ####[facility]ORATORYCLIA [id number] [place] [address] [place] Chloride [Moles/Vol] 94 mmol/L Low 97-105 [facility] Comment on above: Order Comment: Speci men Type: BLOOD SPECIMENOrdering Facility: [facility] Address: [address] [place] [address] Performed By: #### 1 4338-8, 69307-6, 2777-1, 83623-9 ####[facility]ORATORYCLIA [id number] [address] STATES OF [facility] CO2 [Moles/Vol] 31 mmol/L High 22-30 [facility] Comment on above: Order Comment: Speci men Type: BLOOD SPECIMENOrdering Facility: [facility] Address: [address] [place] [address] Performed By: #### 1 4338-8, 40150-5, 2777-1, 63894-6 ####[facility]ORATORYCLIA [id number] [place] [address] [place] Creatinine [Mass/Vol] 0.75 mg/dL Normal 0.73-1.22 [facility] Comment on above: Order Comment: Speci men Type: BLOOD SPECIMENOrdering Facility: [facility] Address: [address] [place] [address] Performed By: #### 1 4338-8, 41906-2, 2777-1, 22308-5 ####[facility]ORATORYCLIA [id number] [address] STATES OF [facility] ESTIMATED GLOMERULAR FILTRATION RATE 98 mL/min/1.73m??? Normal >=60 [facility] Comment on above: Order Comment: Shira feldman Type: BLOOD SPECIMENOrdering Facility: [facility] Address: [address] [place], [place] [address] Result Comment: Luzmaria mated Glomerular Filtration Rate [...] actual GFR. Performed By: #### 1 4338-8, 17284-6, 2777-1, 95783-1 ####[facility] [id number] [place] [address] [place] Glucose [Mass/Vol] 122 mg/dL High 74-99 [facility] Comment on above: Order Comment: Shira feldman Type: BLOOD SPECIMENOrdering Facility: [facility] Address: [address] [place] [address] Result Comment: The [place] Diabetes [employer] (ADA) provides guidance for cutoff [...] Standards of Medical Care in Diabetes 2016, [place] [employer]. Diabetes Care. 2016.39(Suppl 1). Performed By: #### 1 4338-8, 18755-4, 2777-1, 28764-4 ####[facility]ITALCLIA [id number] [place] [id number] [place] Potassium [Moles/Vol] 4.0 mmol/L Normal 3.7-5.1 [facility] Comment on above: Order Comment: Shira men Type: BLOOD SPECIMENOrdering Facility: [facility] Address: [address] [place] [address] Performed By: #### 1 4338-8, 44108-5, 2777-, 50141-6 ####[facility]ORATORYCLIA [id number] [address] STATES OF [facility] Sodium [Moles/Vol] 132 mmol/L Low 136-144 [facility] Comment on above: Order Comment: Speci men Type: BLOOD SPECIMENOrdering Facility: [facility] Address: [address] [place] [address] Performed By: #### 1 4338-8, , 2777-, 01003-0 ####[facility]ORATORYCLIA [id number] [address] [place] Urea nitrogen [Mass/Vol] 34 mg/dL High 01-28 [facility] Comment on above: Order Comment: Speci men Type: BLOOD SPECIMENOrdering Facility: [facility] Address: [address] [place] [address] Performed By: #### 1 4338-8, 39028-0, 2777-, 95790-0 ####[facility] LABORATORYCLIA [id number] [address] [place] CBC W Auto Differential pane l (Bld)on 07-28-2021 Basophils (Bld) [#/Vol] 0.04 10*3/uL Normal <0.11 [facility] Comment on above: Order Comment: Speci men Type: BLOOD SPECIMENOrdering Facility: [facility] Address: [address] [place] [address] Performed By: #### 5 7021-8 ####[facility] LABORATORYCLIA [id number] [address] [place] [facility] Basophils/100 WBC (Bld) 0.5 % Normal [facility] Comment on above: Order Comment: Speci men Type: BLOOD SPECIMENOrdering Facility: [facility] Address: [address] [place] [address] Performed By: #### 5 7021-8 ####[facility] LABORATORYCLIA [id number] [address] Differential cell count method Nom (Bld) Auto Normal [facility] Comment on above: Order Comment: Speci men Type: BLOOD SPECIMENOrdering Facility: [facility] Address: [address] [place] [address] Performed By: #### 5 7021-8 ####[facility] LABORATORYCLIA [id number] [address] Eosinophils (Bld) [#/Vol] 0.30 10*3/uL Normal <0.46 [facility] Comment on above: Order Comment: Speci men Type: BLOOD SPECIMENOrdering Facility: [facility] Address: [address] [place] [address] Performed By: #### 5 7021-8 ####[facility] LABORATORYCLIA [id number] [address] Eosinophils/100 WBC (Bld) 3.4 % Normal [facility] Comment on above: Order Comment: Speci men Type: BLOOD SPECIMENOrdering Facility: [facility] Address: [address] [place] [address] Performed By: #### 5 7021-8 ####[facility] LABORATORYCLIA [id number] [address] Erythrocyte distribution width (RBC) [Ratio] 16.9 % High 11.5-15.0 [facility] Comment on above: Order Comment: Speci men Type: BLOOD SPECIMENOrdering Facility: [facility] Address: [address] [place] [address] Performed By: #### 5 7021-8 ####[facility] LABORATORYCLIA [id number] [address] Hematocrit (Bld) [Volume fraction] 30.3 % Low 39.0-51.0 [facility] Comment on above: Order Comment: Speci men Type: BLOOD SPECIMENOrdering Facility: [facility] Address: [address] [place] [address] Performed By: #### 5 7021-8 ####[facility] LABORATORYCLIA [id number] [address] Hemoglobin (Bld) [Mass/Vol] 9.2 g/dL Low 13.0-17.0 [facility] Comment on above: Order Comment: Speci men Type: BLOOD SPECIMENOrdering Facility: [facility] Address: [address] [place] [address] Performed By: #### 5 7021-8 ####[facility] LABORATORYCLIA [id number] [address] IMMATURE GRAN % 0.6 % Normal [facility] Comment on above: Order Comment: Speci men Type: BLOOD SPECIMENOrdering Facility: [facility] Address: [address] [place] [address] Performed By: #### 5 7021-8 ####[facility] LABORATORYCLIA [id number] [address] IMMATURE GRAN ABS 0.05 k/uL Normal <0.10 [facility] Comment on above: Order Comment: Speci men Type: BLOOD SPECIMENOrdering Facility: [facility] Address: [address] [place] [address] Performed By: #### 5 7021-8 ####[facility] LABORATORYCLIA [id number] [address] Lymphocytes (Bld) [#/Vol] 1.68 10*3/uL Normal 1.00-4.00 [facility] Comment on above: Order Comment: Speci men Type: BLOOD SPECIMENOrdering Facility: [facility] Address: [address] [place] [address] Performed By: #### 5 7021-8 ####[facility] LABORATORYCLIA [id number] [address] Lymphocytes/100 WBC (Bld) 19.2 % Normal [facility] Comment on above: Order Comment: Speci men Type: BLOOD SPECIMENOrdering Facility: [facility] Address: [address] [place] [address] Performed By: #### 5 7021-8 ####[facility] LABORATORYCLIA [id number] [address] MCH (RBC) [Entitic mass] 28.4 pg Normal 26.0-34.0 [facility] Comment on above: Order Comment: Speci men Type: BLOOD SPECIMENOrdering Facility: [facility] Address: [address] [place] [address] Performed By: #### 5 7021-8 ####[facility] LABORATORYCLIA [id number] [address] MCHC (RBC) [Mass/Vol] 30.4 g/dL Low 30.5-36.0 [facility] Comment on above: Order Comment: Speci men Type: BLOOD SPECIMENOrdering Facility: [facility] Address: [address] [place] [address] Performed By: #### 5 7021-8 ####[facility] LABORATORYCLIA [id number] [address] MCV (RBC) [Entitic vol] 93.5 fL Normal 80.0-100.0 [facility] Comment on above: Order Comment: Speci men Type: BLOOD SPECIMENOrdering Facility: [facility] Address: [address] [place] [address] Performed By: #### 5 7021-8 ####[facility] LABORATORYCLIA [id number] [address] Monocytes (Bld) [#/Vol] 0.58 10*3/uL Normal <0.87 [facility] Comment on above: Order Comment: Speci men Type: BLOOD SPECIMENOrdering Facility: [facility] Address: [address] [place] [address] Performed By: #### 5 7021-8 ####[facility] [id number] [address] [place] Monocytes/100 WBC (Bld) 6.6 % Normal [facility] Comment on above: Order Comment: Speci men Type: BLOOD SPECIMENOrdering Facility: [facility] Address: [address] [place] [address] Performed By: #### 5 7021-8 ####[facility]ORATORYCLIA [id number] [place] [address] [place] Neutrophils (Bld) [#/Vol] 6.11 10*3/uL Normal 1.45-7.50 [facility] Comment on above: Order Comment: Speci men Type: BLOOD SPECIMENOrdering Facility: [facility] Address: [address] [place] [address] Performed By: #### 5 7021-8 ####[facility] LABORATORYCLIA [id number] [address] Neutrophils/100 WBC (Bld) 69.7 % Normal [facility] Comment on above: Order Comment: Speci men Type: BLOOD SPECIMENOrdering Facility: [facility] Address: [address] [place] [address] Performed By: #### 5 7021-8 ####[facility] LABORATORYCLIA [id number] [address] [place] Nucleated RBC (Bld) [#/Vol] 10*3/uL Normal <0.01 [facility] Comment on above: Order Comment: Speci men Type: BLOOD SPECIMENOrdering Facility: [facility] Address: [address] [place] [address] Performed By: #### 5 7021-8 ####[facility]ORATORYCLIA [id number] [address] [place] Nucleated RBC/100 WBC (Bld) [Ratio] 0.0 /100 WBC Normal [facility] Comment on above: Order Comment: Speci men Type: BLOOD SPECIMENOrdering Facility: [facility] Address: [address] Performed By: #### 5 7021-8 ####[facility] LABORATORYCLIA [id number] [address] [place] [facility] Platelet mean volume (Bld) [Entitic vol] 11.3 fL Normal 9.0-12.7 [facility] Comment on above: Order Comment: Speci men Type: BLOOD SPECIMENOrdering Facility: [facility] Address: [address] [place] [address] Performed By: #### 5 7021-8 ####[facility] LABORATORYCLIA [id number] [place] [address] [place] Platelets (Bld) [#/Vol] 238 10*3/uL Normal 150-400 [facility] Comment on above: Order Comment: Speci men Type: BLOOD SPECIMENOrdering Facility: [facility] Address: [address] [place] [address] Performed By: #### 5 7021-8 ####[facility] LABORATORYCLIA [id number] [address] [place] RBC (Bld) [#/Vol] 3.24 10*6/uL Low 4.20-6.00 [facility] Comment on above: Order Comment: Speci men Type: BLOOD SPECIMENOrdering Facility: [facility] Address: [address] [place] [address] Performed By: #### 5 7021-8 ####[facility] LABORATORYCLIA [id number] [address] [place] WBC (Bld) [#/Vol] 8.76 10*3/uL Normal 3.70-11.00 [facility] Comment on above: Order Comment: Speci men Type: BLOOD SPECIMENOrdering Facility: [facility] Address: [address] [place], [place] [address] Performed By: #### 5 7021-8 ####[facility] LABORATORYCLIA [id number] [address] [place] MRI BRAIN WO/W IVCONon 07-28 MRI BRAIN WO/W IVCON Normal [facility] Magnesium SerPl-mCncon 07-28 Magnesium [Mass/Vol] 2.5 mg/dL High 1.7-2.3 [facility] Comment on above: Order Comment: Speci men Type: BLOOD SPECIMENOrdering Facility: [facility] Address: [address] [place] [address] Performed By: #### 1 4338-8, 45034-2, 277-1, 87414-0 ####[facility] LABORATORYCLIA [id number] [address] OF [facility] NURSING PROGon 07-28-2021 NURSING PROG Normal [facility] NURSING PROG Normal [facility] Phosphate SerPl-mCncon 07-28 Phosphate [Mass/Vol] 2.8 mg/dL Normal 2.7-4.8 [facility] Comment on above: Order Comment: Speci men Type: BLOOD SPECIMENOrdering Facility: [facility] Address: [address] [place] [address] Performed By: #### 1 4338-8, 91421-5, 2776-05, 97860-9 ####[facility] LABORATORYCLIA [id number] [address] [place] Prealbumin [Mass/Vol]on 07-06 Prealbumin Nephelometry [Mass/Vol] 25 mg/dL Normal 17-36 [facility] Comment on above: Order Comment: Speci men Type: BLOOD SPECIMENOrdering Facility: [facility] Address: [facility] [place] [address] Performed By: #### 1 4338-8, 48696-5, 277-, 24953-0 ####[facility] LABORATORYCLIA [id number] [address] [place] aPTT PPPon 07-28-2021 aPTT Coag (PPP) [Time] 53.0 s High 23.0-32.4 [facility] Comment on above: Order Comment: Speci men Type: BLOOD SPECIMENOrdering Facility: [facility] Address: [address] [place] [address] Performed By: #### 1 4979-9 ####[facility] LABORATORYCLIA [id number] [address] [place] aPTT Coag (PPP) [Time] 57.2 s High 23.0-32.4 [facility] Comment on above: Order Comment: Speci men Type: BLOOD SPECIMENOrdering Facility: [facility] Address: [address] [place] [address] Performed By: #### 1 4979-9 ####[facility] LABORATORYCLIA [id number] [address] Bacteria CSF Culton 07-28-19 Bacteria identified Cx Nom (CSF) CULTURE, CSF: No growth 14 days GRAM STAIN: No organisms seen Rare Polymorphonuclear leukocytes Rare Red Blood Cells Gram stain performed on cytospun specimen. Normal [facility] Comment on above: Performed By: #### 6 06-4 ####[facility] LABORATORYCLIA [id number] [address] Bacteria Spec Resp Culton Bacteria identified Respiratory culture Nom (Unsp spec) CULTURE, RESPIRATORY: Rare Normal respiratory chris present GRAM STAIN: No organisms seen Rare Polymorphonuclear leukocytes Rare Epithelial cells Normal [facility] Comment on above: Performed By: #### 3 2355-0 ####[facility] LABORATORYCLIA [id number] [address] CASE MANAGEMon 07-27-2021 CASE MANAGEM Normal [facility] CBC W Auto Differential pane l (Bld)on 07-27-2021 Basophils (Bld) [#/Vol] 0.04 10*3/uL Normal <0.11 [facility] Comment on above: Order Comment: Speci men Type: BLOOD SPECIMENOrdering Facility: [facility] Address: [address] [place] [address] Performed By: #### 5 7021-8 ####[facility]ITALCLIA [id number] [address] [place] Basophils/100 WBC (Bld) 0.4 % Normal [facility] Comment on above: Order Comment: Speci men Type: BLOOD SPECIMENOrdering Facility: [facility] Address: [address] [place] [address] Performed By: #### 5 7021-8 ####[facility] LABORATORYCLIA [id number] [address] Differential cell count method Nom (Bld) Auto Normal [facility] Comment on above: Order Comment: Speci men Type: BLOOD SPECIMENOrdering Facility: [facility] Address: [address] [place] [address] Performed By: #### 5 7021-8 ####[facility] LABORATORYCLIA [id number] [address] [place] Eosinophils (Bld) [#/Vol] 0.50 10*3/uL High <0.46 [facility] Comment on above: Order Comment: Speci men Type: BLOOD SPECIMENOrdering Facility: [facility] Address: [address] [place] [address] Performed By: #### 5 7021-8 ####[facility] LABORATORYCLIA [id number] [address] [place] Eosinophils/100 WBC (Bld) 5.2 % Normal [facility] Comment on above: Order Comment: Speci men Type: BLOOD SPECIMENOrdering Facility: [facility] Address: [address] [place] [address] Performed By: #### 5 7021-8 ####[facility] LABORATORYCLIA [id number] [address] Erythrocyte distribution width (RBC) [Ratio] 16.8 % High 11.5-15.0 [facility] Comment on above: Order Comment: Speci men Type: BLOOD SPECIMENOrdering Facility: [facility] Address: [address] [place] [address] Performed By: #### 5 7021-8 ####[facility] LABORATORYCLIA [id number] [address] Hematocrit (Bld) [Volume fraction] 29.8 % Low 39.0-51.0 [facility] Comment on above: Order Comment: Speci men Type: BLOOD SPECIMENOrdering Facility: [facility] Address: [address] [place] [address] Performed By: #### 5 7021-8 ####[facility] LABORATORYCLIA [id number] [address] Hemoglobin (Bld) [Mass/Vol] 9.0 g/dL Low 13.0-17.0 [facility] Comment on above: Order Comment: Speci men Type: BLOOD SPECIMENOrdering Facility: [facility] Address: [address] [place] [address] Performed By: #### 5 7021-8 ####[facility] LABORATORYCLIA [id number] [address] IMMATURE GRAN % 0.6 % Normal [facility] Comment on above: Order Comment: Speci men Type: BLOOD SPECIMENOrdering Facility: [facility] Address: [address] [place] [address] Performed By: #### 5 7021-8 ####[facility] LABORATORYCLIA [id number] [address] IMMATURE GRAN ABS 0.06 k/uL Normal <0.10 [facility] Comment on above: Order Comment: Speci men Type: BLOOD SPECIMENOrdering Facility: [facility] Address: [address] [place] [address] Performed By: #### 5 7021-8 ####[facility] LABORATORYCLIA [id number] [address] Lymphocytes (Bld) [#/Vol] 1.73 10*3/uL Normal 1.00-4.00 [facility] Comment on above: Order Comment: Speci men Type: BLOOD SPECIMENOrdering Facility: [facility] Address: [address] [place] [address] Performed By: #### 5 7021-8 ####[facility] LABORATORYCLIA [id number] [address] Lymphocytes/100 WBC (Bld) 17.9 % Normal [facility] Comment on above: Order Comment: Speci men Type: BLOOD SPECIMENOrdering Facility: [facility] Address: [address] [place] [address] Performed By: #### 5 7021-8 ####[facility] LABORATORYCLIA [id number] [address] MCH (RBC) [Entitic mass] 28.1 pg Normal 26.0-34.0 [facility] Comment on above: Order Comment: Speci men Type: BLOOD SPECIMENOrdering Facility: [facility] Address: [address] [place] [address] Performed By: #### 5 7021-8 ####[facility] LABORATORYCLIA [id number] [address] STATES OF [facility] MCHC (RBC) [Mass/Vol] 30.2 g/dL Low 30.5-36.0 [facility] Comment on above: Order Comment: Speci men Type: BLOOD SPECIMENOrdering Facility: [facility] Address: [address] [place] [address] Performed By: #### 5 7021-8 ####[facility] LABORATORYCLIA [id number] [address] STATES OF [facility] MCV (RBC) [Entitic vol] 93.1 fL Normal 80.0-100.0 [facility] Comment on above: Order Comment: Speci men Type: BLOOD SPECIMENOrdering Facility: [facility] Address: [address] [place] [address] Performed By: #### 5 7021-8 ####[facility] LABORATORYCLIA [id number] [place] [address] [place] Monocytes (Bld) [#/Vol] 0.59 10*3/uL Normal <0.87 [facility] Comment on above: Order Comment: Speci men Type: BLOOD SPECIMENOrdering Facility: [facility] Address: [address] [place] [address] Performed By: #### 5 7021-8 ####[facility] LABORATORYCLIA [id number] [address] [place] Monocytes/100 WBC (Bld) 6.1 % Normal [facility] Comment on above: Order Comment: Speci men Type: BLOOD SPECIMENOrdering Facility: [facility] Address: [address] [place] [address] Performed By: #### 5 7021-8 ####[facility] LABORATORYCLIA [id number] [address] [place] Neutrophils (Bld) [#/Vol] 6.75 10*3/uL Normal 1.45-7.50 [facility] Comment on above: Order Comment: Speci men Type: BLOOD SPECIMENOrdering Facility: [facility] Address: [address] [place] [address] Performed By: #### 5 7021-8 ####[facility] LABORATORYCLIA [id number] [address] [place] Neutrophils/100 WBC (Bld) 69.8 % Normal [facility] Comment on above: Order Comment: Speci men Type: BLOOD SPECIMENOrdering Facility: [facility] Address: [address] [place] [address] Performed By: #### 5 7021-8 ####[facility] LABORATORYCLIA [id number] [place] [address] [place] Nucleated RBC (Bld) [#/Vol] 10*3/uL Normal <0.01 [facility] Comment on above: Order Comment: Speci men Type: BLOOD SPECIMENOrdering Facility: [facility] Address: [address] [place] [address] Performed By: #### 5 7021-8 ####[facility] LABORATORYCLIA [id number] [address] [place] Nucleated RBC/100 WBC (Bld) [Ratio] 0.0 /100 WBC Normal [facility] Comment on above: Order Comment: Speci men Type: BLOOD SPECIMENOrdering Facility: [facility] Address: [address] [place] [address] Performed By: #### 5 7021-8 ####[facility] LABORATORYCLIA [id number] [address] [place] Platelet mean volume (Bld) [Entitic vol] 11.3 fL Normal 9.0-12.7 [facility] Comment on above: Order Comment: Speci men Type: BLOOD SPECIMENOrdering Facility: [facility] Address: [address] [place] [address] Performed By: #### 5 7021-8 ####[facility] LABORATORYCLIA [id number] [address] [place] Platelets (Bld) [#/Vol] 227 10*3/uL Normal 150-400 [facility] Comment on above: Order Comment: Speci men Type: BLOOD SPECIMENOrdering Facility: [facility] Address: [address] [place] [address] Performed By: #### 5 7021-8 ####[facility] LABORATORYCLIA [id number] [address] [place] RBC (Bld) [#/Vol] 3.20 10*6/uL Low 4.20-6.00 [facility] Comment on above: Order Comment: Speci men Type: BLOOD SPECIMENOrdering Facility: [facility] Address: [address] [place] [address] Performed By: #### 5 7021-8 ####[facility] LABORATORYCLIA [id number] [address] [place] WBC (Bld) [#/Vol] 9.67 10*3/uL Normal 3.70-11.00 [facility] Comment on above: Order Comment: Speci men Type: BLOOD SPECIMENOrdering Facility: [facility] Address: [address] [place] [address] Performed By: #### 5 7021-8 ####[facility] LABORATORYCLIA [id number] [address] [place] CONSULT PROGon 07-27-2021 CONSULT PROG Normal [facility] CSF MANUAL DIFFon 07-27-2021 DIF TTL, CSF 100 cells counted Normal [facility] Comment on above: Order Comment: Speci men Type: CEREBROSPINAL FLUIDOrdering Facility: [facility] Address: [address] [place] [address] Performed By: #### L [id number], 08863-5, [id number] ####[facility] LABORATORYCLIA [id number] [place] [address] [place] LYMPH%, CSF 75 % Normal 50-90 [facility] Comment on above: Order Comment: Speci men Type: CEREBROSPINAL FLUIDOrdering Facility: [facility] Address: [address] [place] [address] Performed By: #### L [id number], 54929-2, [id number] ####[facility] LABORATORYCLIA [id number] [place] [address] [place] MONO%, CSF 22 % Normal 10-50 [facility] Comment on above: Order Comment: Speci men Type: CEREBROSPINAL FLUIDOrdering Facility: [facility] Address: [address] [place] [address] Performed By: #### L [id number], 90234-3, [id number] ####[facility] LABORATORYCLIA [id number] [address] [place] NEUT%, CSF 2 % Normal 0-3 [facility] Comment on above: Order Comment: Speci men Type: CEREBROSPINAL FLUIDOrdering Facility: [facility] Address: [address] [place] [address] Performed By: #### L [id number], 70261-6, [id number] ####[facility] LABORATORYCLIA [id number] [place] [address] [place] OTHER CL%, CSF 1 % Normal [facility] Comment on above: Order Comment: Speci men Type: CEREBROSPINAL FLUIDOrdering Facility: [facility] Address: [address] [place] [address] Result Comment: Path ologist review of microscopy results to follow Performed By: #### L [id number], 43073-9, [id number] ####[facility] LABORATORYCLIA [id number] [place] [address] [place] CSF PATHOLOGIST INTERP (LAB REFLEX ORDER-NO BILL)on 07-27-2021 CSF STAFF REVIEW Negative Normal [facility] Comment on above: Order Comment: Speci men Type: CEREBROSPINAL FLUIDOrdering Facility: [facility] Address: [address] [place] [address] Performed By: #### L [id number], 34786-1, [id number] ####[facility] LABORATORYCLIA [id number] [address] Pathologist name Reviewed by Amador Stevens MD Normal [facility] Comment on above: Order Comment: Speci men Type: CEREBROSPINAL FLUIDOrdering Facility: [facility] Address: [address] [place] [address] Performed By: #### L [id number], 57898-6, [id number] ####[facility] LABORATORYCLIA [id number] [address] Cell count panel (CSF)on Clarity (CSF) Clear Normal Clear [facility] Comment on above: Order Comment: Speci men Type: CEREBROSPINAL FLUIDOrdering Facility: [facility] Address: [address] [place] [address] Performed By: #### L [id number], 95841-6, [id number] ####[facility] LABORATORYCLIA [id number] [address] [place] Clarity (Unsp spec) Not Indicated Normal Clear [facility] Comment on above: Order Comment: Speci men Type: CEREBROSPINAL FLUIDOrdering Facility: [facility] Address: [address] [place] [address] Performed By: #### L [id number], 92177-6, [id number] ####[facility] LABORATORYCLIA [id number] [address] Color (CSF) Colorless Normal Colorless [facility] Comment on above: Order Comment: Speci men Type: CEREBROSPINAL FLUIDOrdering Facility: [facility] Address: [address] [place] [address] Performed By: #### L [id number], [id number], [id number] ####[facility] LABORATORYCLIA [id number] [address] Color (Spun CSF) Not Indicated Normal Colorless [facility] Comment on above: Order Comment: Speci men Type: CEREBROSPINAL FLUIDOrdering Facility: [facility] Address: [address] [place] [address] Performed By: #### L [id number], 45314-3, [id number] ####[facility] LABORATORYCLIA [id number] [address] CSF TUBE NUMBER Sterile Container Normal [facility] Comment on above: Order Comment: Speci men Type: CEREBROSPINAL FLUIDOrdering Facility: [facility] Address: [address] [place] [address] Performed By: #### L [id number], 41045-8, [id number] ####[facility]ORATORYCLIA [id number] [address] RBC Manual cnt (CSF) [#/Vol] 39 cells/uL High 0-5 [facility] Comment on above: Order Comment: Speci men Type: CEREBROSPINAL FLUIDOrdering Facility: [facility] Address: [address] [place] [address] Performed By: #### L [id number], 96533-7, [id number] ####[facility]ORATORYCLIA [id number] [address] [place] WBC Manual cnt (CSF) [#/Vol] 14 cells/uL High 0-5 [facility] Comment on above: Order Comment: Speci men Type: CEREBROSPINAL FLUIDOrdering Facility: [facility] Address: [address] [place] [address] Performed By: #### L [id number], 37829-3, [id number] ####[facility] LABORATORYCLIA [id number] [place] [address] [place] Glucose CSF-mCncon 2 Glucose (CSF) [Mass/Vol] 64 mg/dL Normal 40-70 [facility] Comment on above: Order Comment: Speci men Type: CEREBROSPINAL FLUIDOrdering Facility: [facility] Address: [address] [place] [address] Result Comment: Lumb ar CSF glucose values of healthy patients are approximately 60% of the plasma values and must always be compared with a concurrently measured plasma value for adequate clinical interpretation.References: 1. Glucose HK (GLUC3) [package insert V 12.0 Finnish]. [employer], [place], [place]. September 2015. 2. Michelle Moore, Loki, H. (2015). Chapter 7: Glucose and Lactate. Marianela Alcocer al.(eds.), Cerebrospinal Fluid in Clinical Neurology. Hickman: [employer]. Performed By: #### 2 342-4, 2880-3 ####[facility]ORATORYCLIA [id number] [place] [address] [place] NUTRITIONon 07-27-2021 NUTRITION Normal [facility] Prot CSF-mCncon 07-27-2021 Protein (CSF) [Mass/Vol] 58 mg/dL High 15-45 [facility] Comment on above: Order Comment: Speci men Type: CEREBROSPINAL FLUIDOrdering Facility: [facility] Address: [address] [place] [address] Performed By: #### 2 342-4, 2880-3 ####[facility] LABORATORYCLIA [id number] [address] [place] aPTT PPPon 07-27-2021 aPTT Coag (PPP) [Time] 68.4 s High 23.0-32.4 [facility] Comment on above: Order Comment: Speci men Type: BLOOD SPECIMENOrdering Facility: [facility] Address: [address] [place] [address] Performed By: #### 1 4979-9 ####[facility]ORATORYCLIA [id number] [address] aPTT Coag (PPP) [Time] 51.3 s High 23.0-32.4 [facility] Comment on above: Order Comment: Speci men Type: BLOOD SPECIMENOrdering Facility: [facility] Address: [address] [place] [address] Performed By: #### 1 4979-9 ####[facility]ORATORYCLIA [id number] [address] ALLIED HEALTHon 07-26-2021 ALLIED HEALTH HNO ID: [id number] Author: Stephanie Maldonado, collar starcher Service: Radiology Author Type: Water Supervisor Type: Allied Health Filed: 07/26/2021 4:10 PM Note Text: Spoke with nurse. Pt getting new EVD today. Try tomorrow. Normal [facility] Bacteria CSF Culton 07-27-19 Bacteria identified Cx Nom (CSF) Abnormal [facility] Comment on above: Performed By: #### 6 06-4 ####[facility]ORATORYCLIA [id number] [address] STATES OF [facility] Basic metabolic 2000 panelon 07-26-2021 Anion gap [Moles/Vol] 6 mmol/L Low 9-18 [facility] Comment on above: Order Comment: Speci men Type: BLOOD SPECIMENOrdering Facility: [facility] Address: [address] [place] [address] Performed By: #### 2 4321-2 ####[facility]ORATORYCLIA [id number] [address] Calcium [Mass/Vol] 9.2 mg/dL Normal 8.5-10.2 [facility] Comment on above: Order Comment: Speci men Type: BLOOD SPECIMENOrdering Facility: [facility] Address: [address] [place] [address] Performed By: #### 2 4321-2 ####[facility]ORATORYCLIA [id number] [place] [address] [place] Chloride [Moles/Vol] 99 mmol/L Normal 97-105 [facility] Comment on above: Order Comment: Speci men Type: BLOOD SPECIMENOrdering Facility: [facility] Address: [address] [place] [address] Performed By: #### 2 4321-2 ####[facility]ORATORYCLIA [id number] [place] [address] [place] CO2 [Moles/Vol] 32 mmol/L High 22-30 [facility] Comment on above: Order Comment: Speci men Type: BLOOD SPECIMENOrdering Facility: [facility] Address: [address] [place] [address] Performed By: #### 2 4321-2 ####[facility]ORATORYCLIA [id number] [address] [place] Creatinine [Mass/Vol] 0.74 mg/dL Normal 0.73-1.22 [facility] Comment on above: Order Comment: Speci men Type: BLOOD SPECIMENOrdering Facility: [facility] Address: [address] [place] [address] Performed By: #### 2 4321-2 ####[facility]ORATORYCLIA [id number] [address] [place] ESTIMATED GLOMERULAR FILTRATION RATE 98 mL/min/1.73m??? Normal >=60 [facility] Comment on above: Order Comment: Speci men Type: BLOOD SPECIMENOrdering Facility: [facility] Address: [address] [place] [address] Result Comment: Luzmaria mated Glomerular Filtration Rate [...] actual GFR. Performed By: #### 2 4321-2 ####[facility]ORATORYCLIA [id number] [place] [address] [place] Glucose [Mass/Vol] 126 mg/dL High 74-99 [facility] Comment on above: Order Comment: Speci men Type: BLOOD SPECIMENOrdering Facility: [facility] Address: [address] [place], [place] [id number] Result Comment: The [place] Diabetes Association (ADA) provides guidance for cutoff [...] Standards of Medical Care in Diabetes 2016, [place] Diabetes Association. Diabetes Care. 2016.39(Suppl 1). Performed By: #### 2 4321-2 ####[facility]ORATORYCLIA [id number] [place] [address] [place] Potassium [Moles/Vol] 4.2 mmol/L Normal 3.7-5.1 [facility] Comment on above: Order Comment: Speci men Type: BLOOD SPECIMENOrdering Facility: [facility] Address: [address] [place] [id number] Performed By: #### 2 4321-2 ####[facility]ORATORYCLIA [id number] [place] [address] [place] Sodium [Moles/Vol] 137 mmol/L Normal 136-144 [facility] Comment on above: Order Comment: Speci men Type: BLOOD SPECIMENOrdering Facility: [facility] Address: [address] [place] [address] Performed By: #### 2 4321-2 ####[facility]ORATORYCLIA [id number] [address] STATES [facility] Urea nitrogen [Mass/Vol] 36 mg/dL High 9-24 [facility] Comment on above: Order Comment: Speci men Type: BLOOD SPECIMENOrdering Facility: [facility] Address: [address] [place] [address] Performed By: #### 2 4321-2 ####[facility]ORATORYCLIA [id number] [address] [place] CBC W Auto Differential pane l (Bld)on 07-26-2021 Basophils (Bld) [#/Vol] 0.04 10*3/uL Normal <0.11 [facility] Comment on above: Order Comment: Speci men Type: BLOOD SPECIMENOrdering Facility: [facility] Address: [address] [place] [address] Performed By: #### 5 7021-8 ####[facility]ORATORYCLIA [id number] [address] [place] Basophils/100 WBC (Bld) 0.4 % Normal [facility] Comment on above: Order Comment: Speci men Type: BLOOD SPECIMENOrdering Facility: [facility] Address: [address] [place] [address] Performed By: #### 5 7021-8 ####[facility]ORATORYCLIA [id number] [address] [place] [facility] Differential cell count method Nom (Bld) Auto Normal [facility] Comment on above: Order Comment: Speci men Type: BLOOD SPECIMENOrdering Facility: [facility] Address: [address] [place] [address] Performed By: #### 5 7021-8 ####[facility]ORATORYCLIA [id number] [place] [address] [place] Eosinophils (Bld) [#/Vol] 0.63 10*3/uL High <0.46 [facility] Comment on above: Order Comment: Speci men Type: BLOOD SPECIMENOrdering Facility: [facility] Address: [address] [place] [address] Performed By: #### 5 7021-8 ####[facility]ORATORYCLIA [id number] [address] [place] [facility] Eosinophils/100 WBC (Bld) 5.8 % Normal [facility] Comment on above: Order Comment: Speci men Type: BLOOD SPECIMENOrdering Facility: [facility] Address: [address] [place] [address] Performed By: #### 5 7021-8 ####[facility]ORATORYCLIA [id number] [address] [place] Erythrocyte distribution width (RBC) [Ratio] 16.8 % High 11.5-15.0 [facility] Comment on above: Order Comment: Speci men Type: BLOOD SPECIMENOrdering Facility: [facility] Address: [address] [place] [address] Performed By: #### 5 7021-8 ####[facility]ORATORYCLIA [id number] [address] STATES OF [facility] Hematocrit (Bld) [Volume fraction] 31.2 % Low 39.0-51.0 [facility] Comment on above: Order Comment: Speci men Type: BLOOD SPECIMENOrdering Facility: [facility] Address: [address] [place] [address] Performed By: #### 5 7021-8 ####[facility]ORATORYCLIA [id number] [address] [place] Hemoglobin (Bld) [Mass/Vol] 9.1 g/dL Low 13.0-17.0 [facility] Comment on above: Order Comment: Speci men Type: BLOOD SPECIMENOrdering Facility: [facility] Address: [address] [place] [address] Performed By: #### 5 7021-8 ####[facility]ORATORYCLIA [id number] [address] IMMATURE GRAN % 0.6 % Normal [facility] Comment on above: Order Comment: Speci men Type: BLOOD SPECIMENOrdering Facility: [facility] Address: [address] [place] [address] Performed By: #### 5 7021-8 ####[facility]ORATORYCLIA [id number] [address] IMMATURE GRAN ABS 0.07 k/uL Normal <0.10 [facility] Comment on above: Order Comment: Speci men Type: BLOOD SPECIMENOrdering Facility: [facility] Address: [address] [place] [address] Performed By: #### 5 7021-8 ####[facility]ORATORYCLIA [id number] [address] [place] [facility] Lymphocytes (Bld) [#/Vol] 2.16 10*3/uL Normal 1.00-4.00 [facility] Comment on above: Order Comment: Speci men Type: BLOOD SPECIMENOrdering Facility: [facility] Address: [address] [place] [address] Performed By: #### 5 7021-8 ####[facility]ORATORYCLIA [id number] [address] Lymphocytes/100 WBC (Bld) 20.0 % Normal [facility] Comment on above: Order Comment: Speci men Type: BLOOD SPECIMENOrdering Facility: [facility] Address: [address] [place] [address] Performed By: #### 5 7021-8 ####[facility]ORATORYCLIA [id number] [address] [place] [facility] MCH (RBC) [Entitic mass] 27.7 pg Normal 26.0-34.0 [facility] Comment on above: Order Comment: Speci men Type: BLOOD SPECIMENOrdering Facility: [facility] Address: [address] [place] [address] Performed By: #### 5 7021-8 ####[facility]ORATORYCLIA [id number] [address] [place] [facility] MCHC (RBC) [Mass/Vol] 29.2 g/dL Low 30.5-36.0 [facility] Comment on above: Order Comment: Speci men Type: BLOOD SPECIMENOrdering Facility: [facility] Address: [address] [place] [address] Performed By: #### 5 7021-8 ####[facility]ORATORYCLIA [id number] [address] [place] MCV (RBC) [Entitic vol] 95.1 fL Normal 80.0-100.0 [facility] Comment on above: Order Comment: Speci men Type: BLOOD SPECIMENOrdering Facility: [facility] Address: [address] [place] [address] Performed By: #### 5 7021-8 ####[facility]ORATORYCLIA [id number] [address] STATES OF [facility] Monocytes (Bld) [#/Vol] 0.63 10*3/uL Normal <0.87 [facility] Comment on above: Order Comment: Speci men Type: BLOOD SPECIMENOrdering Facility: [facility] Address: [address] [place] [address] Performed By: #### 5 7021-8 ####[facility]ORATORYCLIA [id number] [address] Monocytes/100 WBC (Bld) 5.8 % Normal [facility] Comment on above: Order Comment: Speci men Type: BLOOD SPECIMENOrdering Facility: [facility] Address: [address] [place] [address] Performed By: #### 5 7021-8 ####[facility]ORATORYCLIA [id number] [address] [place] Neutrophils (Bld) [#/Vol] 7.25 10*3/uL Normal 1.45-7.50 [facility] Comment on above: Order Comment: Speci men Type: BLOOD SPECIMENOrdering Facility: [facility] Address: [address] [place] [address] Performed By: #### 5 7021-8 ####[facility]ORATORYCLIA [id number] [address] Neutrophils/100 WBC (Bld) 67.4 % Normal [facility] Comment on above: Order Comment: Speci men Type: BLOOD SPECIMENOrdering Facility: [facility] Address: [address] [place] [address] Performed By: #### 5 7021-8 ####[facility]ORATORYCLIA [id number] [address] [place] Nucleated RBC (Bld) [#/Vol] 10*3/uL Normal <0.01 [facility] Comment on above: Order Comment: Speci men Type: BLOOD SPECIMENOrdering Facility: [facility] Address: [address] [place] [address] Performed By: #### 5 7021-8 ####[facility]ORATORYCLIA [id number] [address] Nucleated RBC/100 WBC (Bld) [Ratio] 0.0 /100 WBC Normal [facility] Comment on above: Order Comment: Speci men Type: BLOOD SPECIMENOrdering Facility: [facility] Address: [address] [place] [address] Performed By: #### 5 7021-8 ####[facility]ORATORYCLIA [id number] [address] [place] Platelet mean volume (Bld) [Entitic vol] 11.2 fL Normal 9.0-12.7 [facility] Comment on above: Order Comment: Speci men Type: BLOOD SPECIMENOrdering Facility: [facility] Address: [address] [place] [address] Performed By: #### 5 7021-8 ####[facility]ORATORYCLIA [id number] [address] STATES OF [facility] Platelets (Bld) [#/Vol] 245 10*3/uL Normal 150-400 [facility] Comment on above: Order Comment: Speci men Type: BLOOD SPECIMENOrdering Facility: [facility] Address: [address] [place] [address] Performed By: #### 5 7021-8 ####[facility]ORATORYCLIA [id number] [place] [address] [place] RBC (Bld) [#/Vol] 3.28 10*6/uL Low 4.20-6.00 [facility] Comment on above: Order Comment: Speci men Type: BLOOD SPECIMENOrdering Facility: [facility] Address: [address] [place] [address] Performed By: #### 5 7021-8 ####[facility]ORATORYCLIA [id number] [address] STATES OF [facility] WBC (Bld) [#/Vol] 10.78 10*3/uL Normal 3.70-11.00 [facility] Comment on above: Order Comment: Speci men Type: BLOOD SPECIMENOrdering Facility: [facility] Address: [address] [place] [address] Performed By: #### 5 7021-8 ####[facility]ORATORYCLIA [id number] [address] STATES OF [facility] CSF MANUAL DIFFon 07-26-2021 DIF TTL, CSF 100 cells counted Normal [facility] Comment on above: Order Comment: Speci men Type: CEREBROSPINAL FLUIDOrdering Facility: [facility] Address: [address] [place] [address] Performed By: #### 3 4563-7, [id number], [id number] ####[facility]ORATORYCLIA [id number] [address] [place] LYMPH%, CSF 26 % Low 50-90 [facility] Comment on above: Order Comment: Speci men Type: CEREBROSPINAL FLUIDOrdering Facility: [facility] Address: [address] [place] [place] [address] Performed By: #### 3 4563-7, [id number], [id number] ####[facility]ORATORYCLIA [id number] [place] [address] [place] MACRO%, CSF 10 % High <1 [facility] Comment on above: Order Comment: Speci men Type: CEREBROSPINAL FLUIDOrdering Facility: [facility] Address: [address] [place] [address] Performed By: #### 3 4563-7, [id number], [id number] ####[facility]ORATORYCLIA [id number] [place] [address] [place] MONO%, CSF 20 % Normal 10-50 [facility] Comment on above: Order Comment: Speci men Type: CEREBROSPINAL FLUIDOrdering Facility: [facility] Address: [address] [place] [address] Performed By: #### 3 4563-7, [id number], [id number] ####[facility]ORATORYCLIA [id number] [place] [address] [place] NEUT%, CSF 40 % High 0-3 [facility] Comment on above: Order Comment: Speci men Type: CEREBROSPINAL FLUIDOrdering Facility: [facility] Address: [address] [place] [address] Performed By: #### 3 4563-7, [id number], [id number] ####[facility]ATORYCLIA [id number] [address] [place] OTHER CL%, CSF 2 % Normal [facility] Comment on above: Order Comment: Speci men Type: CEREBROSPINAL FLUIDOrdering Facility: [facility] Address: [address] [place] [address] Result Comment: Path review to follow. Performed By: #### 3 4563-7, [id number], [id number] ####[facility]ORATORYCLIA [id number] [place] [address] [place] REAC LYMPH %, CSF 2 % Normal [facility] Comment on above: Order Comment: Speci men Type: CEREBROSPINAL FLUIDOrdering Facility: [facility] Address: [address] [place] [address] Performed By: #### 3 4563-7, [id number], [id number] ####[facility]ORATORYCLIA [id number] [address] [place] CSF PATHOLOGIST INTERP (LAB REFLEX ORDER-NO BILL)on 07-26-2021 CSF STAFF REVIEW Negative for maligna nt cells. Rare bacteria present, cocci in pairs and chains. Correlation with CSF cultures is recommended. Normal [facility] Comment on above: Order Comment: Speci men Type: CEREBROSPINAL FLUIDOrdering Facility: [facility] Address: [address] [place] [address] Performed By: #### 3 4563-7, [id number], [id number] ####[facility]ORATORYCLIA [id number] [address] Pathologist name Reviewed by Amador Stevens MD [facility] Comment on above: Order Comment: Speci men Type: CEREBROSPINAL FLUIDOrdering Facility: [facility] Address: [address] [place] [address] Performed By: #### 3 4563-7, [id number], [id number] ####[facility]ORATORYCLIA [id number] [address] Cell count panel (CSF)on Clarity (CSF) Slightly Cloudy Abnormal Clear [facility] Comment on above: Order Comment: Speci men Type: CEREBROSPINAL FLUIDOrdering Facility: [facility] Address: [address] [place] [address] Performed By: #### 3 4563-7, [id number], [id number] ####[facility]ORATORYCLIA [id number] [address] [place] Clarity (Unsp spec) Clear Normal Clear [facility] Comment on above: Order Comment: Speci men Type: CEREBROSPINAL FLUIDOrdering Facility: [facility] Address: [address] [address] Performed By: #### 3 4563-7, [id number], [id number] ####[facility]ORATORYCLIA [id number] [address] Color (CSF) Colorless Normal Colorless [facility] Comment on above: Order Comment: Speci men Type: CEREBROSPINAL FLUIDOrdering Facility: [facility] Address: [facility] [place] [address] Performed By: #### 3 4563-7, [id number], [id number] ####[facility]ORATORYCLIA [id number] [address] Color (Spun CSF) Not Indicated Normal Colorless [facility] Comment on above: Order Comment: Speci men Type: CEREBROSPINAL FLUIDOrdering Facility: [facility] Address: [address] [place] [address] Performed By: #### 3 4563-7, [id number], [id number] ####[facility]ORATORYCLIA [id number] [address] CSF TUBE NUMBER Sterile Container Normal [facility] Comment on above: Order Comment: Speci men Type: CEREBROSPINAL FLUIDOrdering Facility: [facility] Address: [address] [place] [address] Performed By: #### 3 4563-7, [id number], [id number] ####[facility]ORATORYCLIA [id number] [address] RBC Manual cnt (CSF) [#/Vol] 1 cells/uL Normal 0-5 [facility] Comment on above: Order Comment: Speci men Type: CEREBROSPINAL FLUIDOrdering Facility: [facility] Address: [facility] [place] [address] Performed By: #### 3 4563-7, [id number], [id number] ####[facility]ORATORYCLIA [id number] [address] WBC Manual cnt (CSF) [#/Vol] 50 cells/uL High 0-5 [facility] Comment on above: Order Comment: Speci men Type: CEREBROSPINAL FLUIDOrdering Facility: [facility] Address: [address] [place] [address] Performed By: #### 3 4563-7, [id number], [id number] ####[facility]ORATORYCLIA [id number] [place] [address] [place] [facility] Glucose CSF-ncon Glucose (CSF) [Mass/Vol] 64 mg/dL Normal 40-70 [facility] Comment on above: Order Comment: Speci men Type: CEREBROSPINAL FLUIDOrdering Facility: [facility] Address: [address] [place] [address] Result Comment: Lumb ar CSF glucose values of healthy patients are approximately 60% of the plasma values and must always be compared with a concurrently measured plasma value for adequate clinical interpretation.References: 1. Glucose HK (GLUC3) [package insert V 12.0 Finnish]. [employer], [place], [place]. September 2015. 2. Michelle Moore, Loki HGarfield (2015). Chapter 7: Glucose and Lactate. F. Irina rose al.(eds.), Cerebrospinal Fluid in Clinical Neurology. Hickman: [employer]. Performed By: #### 2 880-3, 2342-4 ####[facility] LABORATORYCLIA [id number] [place] [address] [place] Magnesium SerPl-ncon 07-26 Magnesium [Mass/Vol] 2.3 mg/dL Normal 1.7-2.3 [facility] Comment on above: Order Comment: Speci men Type: BLOOD SPECIMENOrdering Facility: [facility] Address: [address] [place] [address] Performed By: #### 1 9123-9, 2777-1, 3016-3 ####[facility] LABORATORYCLIA [id number] [place] [address] [place] NURSING PROGon 07-26-2021 NURSING PROG Normal [facility] [facility] Phosphate SerPl-ncon 07-26 Phosphate [Mass/Vol] 2.6 mg/dL Low 2.7-4.8 [facility] Comment on above: Order Comment: Speci men Type: BLOOD SPECIMENOrdering Facility: [facility] Address: [address] [place] [address] Performed By: #### 1 9123-9, 2777-1, 3016-3 ####[facility] LABORATORYCLIA [id number] [place] [address] [place] Prot CSF-mCncon 07-26-2021 Protein (CSF) [Mass/Vol] 64 mg/dL High 15-45 [facility] Comment on above: Order Comment: Speci men Type: CEREBROSPINAL FLUIDOrdering Facility: [facility] Address: [address] [place] [address] Performed By: #### 2 880-3, 2342-4 ####[facility] LABORATORYCLIA [id number] [address] OF [facility] THERAPY NTon 07-26-2021 THERAPY NT Normal [facility] TSH SerPl-aCncon 07-26-2021 TSH Qn 1.470 m[IU]/L Normal 0.270-4.200 [facility] Comment on above: Order Comment: Speci men Type: BLOOD SPECIMENOrdering Facility: [facility] Address: [address] [place] [address] Performed By: #### 1 9123-9, 2777-1, 3016-3 ####[facility] LABORATORYCLIA [id number] [address] [place] VITAMIN B12 BLOODon 07-27-19 Cobalamin (Vitamin B12) [Mass/Vol] 934 pg/mL Normal 232-1,245 [facility] Comment on above: Order Comment: Speci men Type: BLOOD SPECIMENOrdering Facility: [facility] Address: [address] [place] [address] Performed By: #### B 12 ####[facility] LABORATORYCLIA [id number] [address] [place] aPTT PPPon 07-26-2021 aPTT Coag (PPP) [Time] 53.6 s High 23.0-32.4 [facility] Comment on above: Order Comment: Speci men Type: BLOOD SPECIMENOrdering Facility: [facility] Address: [address] [place] [address] Performed By: #### 1 4979-9 ####[facility] LABORATORYCLIA [id number] [address] aPTT Coag (PPP) [Time] 44.9 s High 23.0-32.4 [facility] Comment on above: Order Comment: Speci men Type: BLOOD SPECIMENOrdering Facility: [facility] Address: [address] [place] [address] Performed By: #### 1 4979-9 ####[facility] LABORATORYCLIA [id number] [address] ALLIED HEALTHon 07-25-2021 ALLIED HEALTH HNO ID: [id number] Author: RT Rajwinder(R) Service: Radiology Author Type: Technologist Type: Allied Health Filed: 07/25/2021 1:37 PM Note Text: Called floor for MRI screening form [id number] Normal [facility] Bacteria Bld Culton 07-26-19 Bacteria identified Cx Nom (Bld) CULTURE, BLOOD: No growth 5 days Normal [facility] Comment on above: Performed By: #### 6 00-7 ####[facility]ORATORYCLIA [id number] [address] Bacteria identified Cx Nom (Bld) CULTURE, BLOOD: No growth 5 days Normal [facility] Comment on above: Performed By: #### 6 00-7 ####[facility]ORATORYCLIA [id number] [address] CASE MANAGEMon 07-25-2021 CASE MANAGEM Normal [facility] CBC W Auto Differential pane l (Bld)on 07-25-2021 Basophils (Bld) [#/Vol] 0.06 10*3/uL Normal <0.11 [facility] Comment on above: Order Comment: Speci men Type: BLOOD SPECIMENOrdering Facility: [facility] Address: [address] [place] [address] Performed By: #### 5 7021-8 ####[facility]ORATORYCLIA [id number] [place] [address] [place] Basophils/100 WBC (Bld) 0.6 % Normal [facility] Comment on above: Order Comment: Speci men Type: BLOOD SPECIMENOrdering Facility: [facility] Address: [address] [place] [address] Performed By: #### 5 7021-8 ####[facility]ORATORYCLIA [id number] [address] [place] Differential cell count method Nom (Bld) Auto Normal [facility] Comment on above: Order Comment: Speci men Type: BLOOD SPECIMENOrdering Facility: [facility] Address: [address] [place] [address] Performed By: #### 5 7021-8 ####[facility]ORATORYCLIA [id number] [address] [place] Eosinophils (Bld) [#/Vol] 0.26 10*3/uL Normal <0.46 [facility] Comment on above: Order Comment: Speci men Type: BLOOD SPECIMENOrdering Facility: [facility] Address: [address] [place] [address] Performed By: #### 5 7021-8 ####[facility]ATORYCLIA [id number] [address] [place] Eosinophils/100 WBC (Bld) 2.5 % Normal [facility] Comment on above: Order Comment: Speci men Type: BLOOD SPECIMENOrdering Facility: [facility] Address: [address] [place] [address] Performed By: #### 5 7021-8 ####[facility]ATORYCLIA [id number] [address] Erythrocyte distribution width (RBC) [Ratio] 16.9 % High 11.5-15.0 [facility] Comment on above: Order Comment: Speci men Type: BLOOD SPECIMENOrdering Facility: [facility] Address: [address] [place] [address] Performed By: #### 5 7021-8 ####[facility]ORATORYCLIA [id number] [address] OF [facility] Hematocrit (Bld) [Volume fraction] 29.6 % Low 39.0-51.0 [facility] Comment on above: Order Comment: Speci men Type: BLOOD SPECIMENOrdering Facility: [facility] Address: [address] [place] [address] Performed By: #### 5 7021-8 ####[facility]ORATORYCLIA [id number] [address] STATES OF [facility] Hemoglobin (Bld) [Mass/Vol] 8.8 g/dL Low 13.0-17.0 [facility] Comment on above: Order Comment: Speci men Type: BLOOD SPECIMENOrdering Facility: [facility] Address: [address] [place] [address] Performed By: #### 5 7021-8 ####[facility] LABORATORYCLIA [id number] [address] [place] IMMATURE GRAN % 0.6 % Normal [facility] Comment on above: Order Comment: Speci men Type: BLOOD SPECIMENOrdering Facility: [facility] Address: [address] [place] [address] Performed By: #### 5 7021-8 ####[facility]ORATORYCLIA [id number] [address] IMMATURE GRAN ABS 0.06 k/uL Normal <0.10 [facility] Comment on above: Order Comment: Speci men Type: BLOOD SPECIMENOrdering Facility: [facility] Address: [address] [place] [address] Performed By: #### 5 7021-8 ####[facility]ORATORYCLIA [id number] [address] [place] Lymphocytes (Bld) [#/Vol] 2.15 10*3/uL Normal 1.00-4.00 [facility] Comment on above: Order Comment: Speci men Type: BLOOD SPECIMENOrdering Facility: [facility] Address: [address] [place] [address] Performed By: #### 5 7021-8 ####[facility]ORATORYCLIA [id number] [address] Lymphocytes/100 WBC (Bld) 20.7 % Normal [facility] Comment on above: Order Comment: Speci men Type: BLOOD SPECIMENOrdering Facility: [facility] Address: [address] [place] [address] Performed By: #### 5 7021-8 ####[facility]ORATORYCLIA [id number] [address] MCH (RBC) [Entitic mass] 28.2 pg Normal 26.0-34.0 [facility] Comment on above: Order Comment: Speci men Type: BLOOD SPECIMENOrdering Facility: [facility] Address: [address] [place] [address] Performed By: #### 5 7021-8 ####[facility]ORATORYCLIA [id number] [address] STATES OF [facility] MCHC (RBC) [Mass/Vol] 29.7 g/dL Low 30.5-36.0 [facility] Comment on above: Order Comment: Speci men Type: BLOOD SPECIMENOrdering Facility: [facility] Address: [address] [place] [address] Performed By: #### 5 7021-8 ####[facility]ORATORYCLIA [id number] [address] STATES OF [facility] MCV (RBC) [Entitic vol] 94.9 fL Normal 80.0-100.0 [facility] Comment on above: Order Comment: Speci men Type: BLOOD SPECIMENOrdering Facility: [facility] Address: [address] [place] [address] Performed By: #### 5 7021-8 ####[facility]ORATORYCLIA [id number] [address] [place] Monocytes (Bld) [#/Vol] 0.62 10*3/uL Normal <0.87 [facility] Comment on above: Order Comment: Speci men Type: BLOOD SPECIMENOrdering Facility: [facility] Address: [address] [place] [address] Performed By: #### 5 7021-8 ####[facility] LABORATORYCLIA [id number] [address] Monocytes/100 WBC (Bld) 6.0 % Normal [facility] Comment on above: Order Comment: Speci men Type: BLOOD SPECIMENOrdering Facility: [facility] Address: [address] [place] [address] Performed By: #### 5 7021-8 ####[facility] LABORATORYCLIA [id number] [address] [place] Neutrophils (Bld) [#/Vol] 7.25 10*3/uL Normal 1.45-7.50 [facility] Comment on above: Order Comment: Speci men Type: BLOOD SPECIMENOrdering Facility: [facility] Address: [address] [place] [address] Performed By: #### 5 7021-8 ####[facility]ATORYCLIA [id number] [address] [place] Neutrophils/100 WBC (Bld) 69.6 % Normal [facility] Comment on above: Order Comment: Speci men Type: BLOOD SPECIMENOrdering Facility: [facility] Address: [address] [place] [address] Performed By: #### 5 7021-8 ####[facility] LABORATORYCLIA [id number] [place] [address] [place] Nucleated RBC (Bld) [#/Vol] 10*3/uL Normal <0.01 [facility] Comment on above: Order Comment: Speci men Type: BLOOD SPECIMENOrdering Facility: [facility] Address: [address] [place] [address] Performed By: #### 5 7021-8 ####[facility]ORATORYCLIA [id number] [place] [address] [place] Nucleated RBC/100 WBC (Bld) [Ratio] 0.0 /100 WBC Normal [facility] Comment on above: Order Comment: Speci men Type: BLOOD SPECIMENOrdering Facility: [facility] Address: [address] [place] [address] Performed By: #### 5 7021-8 ####[facility]ORATORYCLIA [id number] [place] [address] [place] Platelet mean volume (Bld) [Entitic vol] 11.3 fL Normal 9.0-12.7 [facility] Comment on above: Order Comment: Speci men Type: BLOOD SPECIMENOrdering Facility: [facility] Address: [address] [place] [address] Performed By: #### 5 7021-8 ####[facility]ORATORYCLIA [id number] [place] [address] [place] Platelets (Bld) [#/Vol] 243 10*3/uL Normal 150-400 [facility] Comment on above: Order Comment: Speci men Type: BLOOD SPECIMENOrdering Facility: [facility] Address: [address] Performed By: #### 5 7021-8 ####[facility]ORATORYCLIA [id number] [place] [address] [place] RBC (Bld) [#/Vol] 3.12 10*6/uL Low 4.20-6.00 [facility] Comment on above: Order Comment: Speci men Type: BLOOD SPECIMENOrdering Facility: [facility] Address: [address] [place] [address] Performed By: #### 5 7021-8 ####[facility]ORATORYCLIA [id number] [place] [address] [place] WBC (Bld) [#/Vol] 10.40 10*3/uL Normal 3.70-11.00 [facility] Comment on above: Order Comment: Speci men Type: BLOOD SPECIMENOrdering Facility: [facility] Address: [address] [place] [address] Performed By: #### 5 7021-8 ####[facility] LABORATORYCLIA [id number] [address] [place] CONSULT PROGon 07-25-2021 CONSULT PROG Normal [facility] MYCOPLASMA PNEUM IGMon 07-25 M. PNEUMO IGM, QUAL Negative Normal Negative [facility] Comment on above: Order Comment: Speci [facility] Type: BLOOD SPECIMENOrdering Facility: [facility] Address: [address] [place] [address] Result Comment: Myco plasma pneumoniae IgM antibody test is used as an aid in diagnosis of recent infection with M. pneumoniae. It may occasionally remain elevated for extended periods after an acute infection. Cannot exclude recent infection if the specimen collected 7-10 days after onset of signs and symptoms. Clinical correlation is required. Performed By: #### M YCOPM ####[facility] LABCLIA [id number] [facility] [id number] [place] NURSING PROGon 07-25-2021 NURSING PROG Normal [facility] THERAPY NTon 07-25-2021 THERAPY NT Normal [facility] THERAPY NT Normal [facility] aPTT PPPon 07-25-2021 aPTT Coag (PPP) [Time] 62.6 s High 23.0-32.4 [facility] Comment on above: Order Comment: Speci men Type: BLOOD SPECIMENOrdering Facility: [facility] Address: [address] [place] [address] Performed By: #### 1 4979-9 ####[facility]ORATORYCLIA [id number] [place] [address] [place] Bacteria Ur Culton 2 Bacteria identified Cx Nom (U) CULTURE, URINE: No growth (<100 CFU/ml) Normal [facility] Comment on above: Performed By: #### 6 30-4 ####[facility]ORATORYCLIA [id number] [place] [address] [place] Basic metabolic 2000 panelon 07-24-2021 Anion gap [Moles/Vol] 13 mmol/L Normal 9-18 [facility] Comment on above: Order Comment: Speci men Type: BLOOD SPECIMENOrdering Facility: [facility] Address: [address] [place] [address] Performed By: #### 1 9123-9, KATIE, 2776-05, 38894-4 ####[facility] LABORATORYCLIA [id number] [place] [address] [place] Calcium [Mass/Vol] 9.5 mg/dL Normal 8.5-10.2 [facility] Comment on above: Order Comment: Speci men Type: BLOOD SPECIMENOrdering Facility: [facility] Address: [address] [place] [address] Performed By: #### 1 9123-9, KATIE, 2776-05, 61696-2 ####[facility]ORATORYCLIA [id number] [place] [address] [place] Chloride [Moles/Vol] 102 mmol/L Normal 97-105 [facility] Comment on above: Order Comment: Speci men Type: BLOOD SPECIMENOrdering Facility: [facility] Address: [address] [address] Performed By: #### 1 9123-9, KATIE, 2776-05, ####[facility]ORATORYCLIA [id number] [place] [address] [place] CO2 [Moles/Vol] 28 mmol/L Normal 22-30 [facility] Comment on above: Order Comment: Speci men Type: BLOOD SPECIMENOrdering Facility: [facility] Address: [address] [address] Performed By: #### 1 9123-9, PROCAL, 2777-1, 65627-1 ####[facility]ITALIA [id number] [address] [place] Creatinine [Mass/Vol] 0.86 mg/dL Normal 0.73-1.22 [facility] Comment on above: Order Comment: Speci men Type: BLOOD SPECIMENOrdering Facility: [facility] Address: [address] [address] Performed By: #### 1 9123-9, [facility], 277-, 10911-6 ####[facility] HOSPITALIA [id number] [address] [place] ESTIMATED GLOMERULAR FILTRATION RATE 94 mL/min/1.73m??? Normal >=60 [facility] Comment on above: Order Comment: Speci men Type: BLOOD SPECIMENOrdering Facility: [facility] Address: [address] [address] Result Comment: Luzmaria mated Glomerular Filtration Rate [...] Performed By: #### 1 9123-9, PROCAL, 2777-1, 73388-3 ####[facility]ITALIA [id number] [address] [place] Glucose [Mass/Vol] 148 mg/dL High 74-99 [facility] Comment on above: Order Comment: Speci men Type: BLOOD SPECIMENOrdering Facility: [facility] Address: [address] [address] Result Comment: The [place] [employer] (ADA) provides guidance for cutoff [...] Standards of Medical Care in Diabetes 2016, [place] [employer]. Diabetes Care. 2016.39(Suppl 1). Performed By: #### 1 9123-9, PROCAL, 2776-, 75678-2 ####[facility] LABORATORYCLIA [id number] [place] [address] [place] Potassium [Moles/Vol] 4.0 mmol/L Normal 3.7-5.1 [facility] Comment on above: Order Comment: Shira feldman Type: BLOOD SPECIMENOrdering Facility: [facility] Address: [address] [place] [address] Performed By: #### 1 9123-9, [facility], 2776-05, 21199-4 ####[facility]ITALCLIA [id number] [place] [address] [place] Sodium [Moles/Vol] 143 mmol/L Normal 136-144 [facility] Comment on above: Order Comment: Shira feldman Type: BLOOD SPECIMENOrdering Facility: [facility] Address: [address] [place] [address] Performed By: #### 1 9123-9, PROCPA, 2776-05, 70404-1 ####[facility]ORATORYCLIA [id number] [place] [address] [place] Urea nitrogen [Mass/Vol] 38 mg/dL High 9-24 [facility] Comment on above: Order Comment: Shira feldman Type: BLOOD SPECIMENOrdering Facility: [facility] Address: [address] [address] Performed By: #### 1 9123-9, PROCAL, 7-, 58364-1 ####[facility]ORATORYCLIA [id number] [place] [address] [place] CBC W Auto Differential pane l (Bld)on 07-24-2021 Basophils (Bld) [#/Vol] 0.06 10*3/uL Normal <0.11 [facility] Comment on above: Order Comment: Speci men Type: BLOOD SPECIMENOrdering Facility: [facility] Address: [address] [place] [address] Performed By: #### 5 7021-8 ####[facility]ORATORYCLIA [id number] [address] STATES [facility] Basophils/100 WBC (Bld) 0.6 % Normal [facility] Comment on above: Order Comment: Speci men Type: BLOOD SPECIMENOrdering Facility: [facility] Address: [address] [place] [address] Performed By: #### 5 7021-8 ####[facility]ORATORYCLIA [id number] [address] Differential cell count method Nom (Bld) Auto Normal [facility] Comment on above: Order Comment: Speci men Type: BLOOD SPECIMENOrdering Facility: [facility] Address: [address] [place] [address] Performed By: #### 5 7021-8 ####[facility]ORATORYCLIA [id number] [address] [place] Eosinophils (Bld) [#/Vol] 0.03 10*3/uL Normal <0.46 [facility] Comment on above: Order Comment: Speci men Type: BLOOD SPECIMENOrdering Facility: [facility] Address: [address] [place] [address] Performed By: #### 5 7021-8 ####[facility]ORATORYCLIA [id number] [address] Eosinophils/100 WBC (Bld) 0.3 % Normal [facility] Comment on above: Order Comment: Speci men Type: BLOOD SPECIMENOrdering Facility: [facility] Address: [address] [address] Performed By: #### 5 7021-8 ####[facility]ORATORYCLIA [id number] [address] Erythrocyte distribution width (RBC) [Ratio] 17.0 % High 11.5-15.0 [facility] Comment on above: Order Comment: Speci men Type: BLOOD SPECIMENOrdering Facility: [facility] Address: [address] [place] [address] Performed By: #### 5 7021-8 ####[facility]ORATORYCLIA [id number] [address] Hematocrit (Bld) [Volume fraction] 30.5 % Low 39.0-51.0 [facility] Comment on above: Order Comment: Speci men Type: BLOOD SPECIMENOrdering Facility: [facility] Address: [address] [place] [address] Performed By: #### 5 7021-8 ####[facility]ORATORYCLIA [id number] [address] Hemoglobin (Bld) [Mass/Vol] 9.0 g/dL Low 13.0-17.0 [facility] Comment on above: Order Comment: Speci men Type: BLOOD SPECIMENOrdering Facility: [facility] Address: [address] [place] [address] Performed By: #### 5 7021-8 ####[facility]ORATORYCLIA [id number] [address] IMMATURE GRAN % 0.5 % Normal [facility] Comment on above: Order Comment: Speci men Type: BLOOD SPECIMENOrdering Facility: [facility] Address: [address] [place] [address] Performed By: #### 5 7021-8 ####[facility]ORATORYCLIA [id number] [address] IMMATURE GRAN ABS 0.05 k/uL Normal <0.10 [facility] Comment on above: Order Comment: Speci men Type: BLOOD SPECIMENOrdering Facility: [facility] Address: [address] [place] [address] Performed By: #### 5 7021-8 ####[facility] LABORATORYCLIA [id number] [address] OF [facility] Lymphocytes (Bld) [#/Vol] 1.68 10*3/uL Normal 1.00-4.00 [facility] Comment on above: Order Comment: Speci men Type: BLOOD SPECIMENOrdering Facility: [facility] Address: [address] [place] [address] Performed By: #### 5 7021-8 ####[facility]ORATORYCLIA [id number] [address] Lymphocytes/100 WBC (Bld) 16.2 % Normal [facility] Comment on above: Order Comment: Speci men Type: BLOOD SPECIMENOrdering Facility: [facility] Address: [address] [place] [address] Performed By: #### 5 7021-8 ####[facility]ORATORYCLIA [id number] [address] [place] MCH (RBC) [Entitic mass] 27.4 pg Normal 26.0-34.0 [facility] Comment on above: Order Comment: Speci men Type: BLOOD SPECIMENOrdering Facility: [facility] Address: [address] [place] [address] Performed By: #### 5 7021-8 ####[facility] LABORATORYCLIA [id number] [address] [place] MCHC (RBC) [Mass/Vol] 29.5 g/dL Low 30.5-36.0 [facility] Comment on above: Order Comment: Speci men Type: BLOOD SPECIMENOrdering Facility: [facility] Address: [address] [place] [address] Performed By: #### 5 7021-8 ####[facility] LABORATORYCLIA [id number] [address] [place] MCV (RBC) [Entitic vol] 93.0 fL Normal 80.0-100.0 [facility] Comment on above: Order Comment: Speci men Type: BLOOD SPECIMENOrdering Facility: [facility] Address: [address] [place] [address] Performed By: #### 5 7021-8 ####[facility] LABORATORYCLIA [id number] [place] [address] [place] Monocytes (Bld) [#/Vol] 0.63 10*3/uL Normal <0.87 [facility] Comment on above: Order Comment: Speci men Type: BLOOD SPECIMENOrdering Facility: [facility] Address: [address] [place] [address] Performed By: #### 5 7021-8 ####[facility] LABORATORYCLIA [id number] [address] Monocytes/100 WBC (Bld) 6.1 % Normal [facility] Comment on above: Order Comment: Speci men Type: BLOOD SPECIMENOrdering Facility: [facility] Address: [address] [place] [address] Performed By: #### 5 7021-8 ####[facility] LABORATORYCLIA [id number] [address] [place] Neutrophils (Bld) [#/Vol] 7.91 10*3/uL High 1.45-7.50 [facility] Comment on above: Order Comment: Speci men Type: BLOOD SPECIMENOrdering Facility: [facility] Address: [address] [place] [address] Performed By: #### 5 7021-8 ####[facility] [facility]ATORYCLIA [id number] [address] [place] Neutrophils/100 WBC (Bld) 76.3 % Normal [facility] Comment on above: Order Comment: Speci men Type: BLOOD SPECIMENOrdering Facility: [facility] Address: [address] [place] [address] Performed By: #### 5 7021-8 ####[facility]ORATORYCLIA [id number] [address] [place] Nucleated RBC (Bld) [#/Vol] 10*3/uL Normal <0.01 [facility] Comment on above: Order Comment: Speci men Type: BLOOD SPECIMENOrdering Facility: [facility] Address: [address] [place] [address] Performed By: #### 5 7021-8 ####[facility]ATORYCLIA [id number] [address] [place] Nucleated RBC/100 WBC (Bld) [Ratio] 0.0 /100 WBC Normal [facility] Comment on above: Order Comment: Speci men Type: BLOOD SPECIMENOrdering Facility: [facility] Address: [address] [place] [address] Performed By: #### 5 7021-8 ####[facility]ATORYCLIA [id number] [address] Platelet mean volume (Bld) [Entitic vol] 11.1 fL Normal 9.0-12.7 [facility] Comment on above: Order Comment: Speci men Type: BLOOD SPECIMENOrdering Facility: [facility] Address: [address] [place] [address] Performed By: #### 5 7021-8 ####[facility]ATORYCLIA [id number] [address] [place] Platelets (Bld) [#/Vol] 285 10*3/uL Normal 150-400 [facility] Comment on above: Order Comment: Speci men Type: BLOOD SPECIMENOrdering Facility: [facility] Address: [address] [place] [address] Performed By: #### 5 7021-8 ####[facility]ATORYCLIA [id number] [address] [place] RBC (Bld) [#/Vol] 3.28 10*6/uL Low 4.20-6.00 [facility] Comment on above: Order Comment: Speci men Type: BLOOD SPECIMENOrdering Facility: [facility] Address: [address] [place] [address] Performed By: #### 5 7021-8 ####[facility]ORATORYCLIA [id number] [place] [address] [place] WBC (Bld) [#/Vol] 10.36 10*3/uL Normal 3.70-11.00 [facility] Comment on above: Order Comment: Speci men Type: BLOOD SPECIMENOrdering Facility: [facility] Address: [address] [place] [address] Performed By: #### 5 7021-8 ####[facility]ATORYCLIA [id number] [address] [place] Legionella Ag Ur Qlon 2021 Legionella sp Ag Ql (U) Negative Normal Negative [facility] Comment on above: Order Comment: Speci men Type: URINE SPECIMENOrdering Facility: [facility] Address: [address] [place] [address] Performed By: #### 3 2781-7 ####[facility]ATORYCLIA [id number] [place] [address] [place] Magnesium SerPl-mCncon 07-24 Magnesium [Mass/Vol] 2.3 mg/dL Normal 1.7-2.3 [facility] Comment on above: Order Comment: Speci men Type: BLOOD SPECIMENOrdering Facility: [facility] Address: [address] [place] [address] Performed By: #### 1 9123-9, PROCAL, 2777-1, 64896-6 ####[facility]ATORYCLIA [id number] [address] [place] NURSING PROGon 07-24-2021 NURSING PROG Normal [facility] PROCALCITONIN (LAB)on 2021 Procalcitonin [Mass/Vol] 0.15 ng/mL High <0.09 [facility] Comment on above: Order Comment: Speci men Type: BLOOD SPECIMENOrdering Facility: [facility] Address: [address] [place] [address] Result Comment: For a guided interpretation of test results, please visit the Change in Procalcitonin Calculator, [email or web address]. Performed By: #### 1 9123-9, PROCCARLITOS, 2777-1, 86866-7 ####[facility]ATORYCLIA [id number] [address] [place] Phosphate SerPl-mCncon 07-24 Phosphate [Mass/Vol] 3.9 mg/dL Normal 2.7-4.8 [facility] Comment on above: Order Comment: Speci men Type: BLOOD SPECIMENOrdering Facility: [facility] Address: [address] [place] [address] Performed By: #### 1 9123-9, PROCAL, 2777-1, 34907-7 ####[facility]ATORYCLIA [id number] [address] [place] STREPTOCOCCUS PNEUMONIAE AGo n 07-24-2021 STREPTOCOCCUS PNEUMONIAE AG Normal [facility] Comment on above: Performed By: #### S PNAG ####[facility]ATORYCLIA [id number] [address] [place] aPTT PPPon 07-24-2021 aPTT Coag (PPP) [Time] 60.8 s High 23.0-32.4 [facility] Comment on above: Order Comment: Speci men Type: BLOOD SPECIMENOrdering Facility: [facility] Address: [address] [place] [address] Performed By: #### 1 4979-9 ####[facility]ATORYCLIA [id number] [address] [place] aPTT Coag (PPP) [Time] 38.2 s High 23.0-32.4 [facility] Comment on above: Order Comment: Speci men Type: BLOOD SPECIMENOrdering Facility: [facility] Address: [address] [address] Performed By: #### 1 4979-9 ####[facility]ATORYCLIA [id number] [address] aPTT Coag (PPP) [Time] 35.9 s High 23.0-32.4 [facility] Comment on above: Order Comment: Speci men Type: BLOOD SPECIMENOrdering Facility: [facility] Address: [address] [place] [address] Performed By: #### 1 4979-9 ####[facility]ATORYCLIA [id number] [address] aPTT Coag (PPP) [Time] 28.8 s Normal 23.0-32.4 [facility] Comment on above: Order Comment: Speci men Type: BLOOD SPECIMENOrdering Facility: [facility] Address: [address] [place] [address] Performed By: #### 1 4979-9 ####[facility]ATORYCLIA [id number] [address] [place] ALLIED HEALTHon 07-23-2021 ALLIED HEALTH Normal [facility] ALLIED HEALTH Normal [facility] ALLIED HEALTH Normal [facility] ARTERIAL BLOOD GASESon 07-23 Base excess Calc (Bld) [Moles/Vol] 4 mmol/L High 0-2 [facility] Comment on above: Order Comment: Speci men Type: ARTERIAL BLOOD SPECIMENOrdering Facility: [facility] Address: [address] [address] Performed By: #### A LLBG ####[facility]ATORYCLIA [id number] [address] Body temperature 100.58 [degF] Normal [facility] Comment on above: Order Comment: Speci men Type: ARTERIAL BLOOD SPECIMENOrdering Facility: [facility] Address: [address] [place] [address] Performed By: #### A LLBG ####[facility]ATORYCLIA [id number] [address] STATES OF [facility] CALCIUM IONIZED, PH CORRECTED 1.26 mmol/L Normal 1.08-1.30 [facility] Comment on above: Order Comment: Speci men Type: ARTERIAL BLOOD SPECIMENOrdering Facility: [facility] Address: [address] [place] [address] Performed By: #### A LLBG ####[facility]ATORYCLIA [id number] [place] [address] [place] Calcium.ionized (BldV) [Mass/Vol] 1.25 mmol/L Normal 1.08-1.30 [facility] Comment on above: Order Comment: Speci men Type: ARTERIAL BLOOD SPECIMENOrdering Facility: [facility] Address: [address] [place] [address] Performed By: #### A LLBG ####[facility]ATORYCLIA [id number] [address] Carboxyhemoglobin (BldA) [Mass fraction] 1.2 % Normal 0.0-2.0 [facility] Comment on above: Order Comment: Speci men Type: ARTERIAL BLOOD SPECIMENOrdering Facility: [facility] Address: [address] [place] [address] Result Comment: Carb oxyhemoglobin Reference Range for Smokers: 2.0-8.0% Performed By: #### A LLBG ####[facility]ATORYCLIA [id number] [place] [address] [place] CO2 (Bld) [Partial pressure] 46 mm Hg Normal 36-46 [facility] Comment on above: Order Comment: Speci men Type: ARTERIAL BLOOD SPECIMENOrdering Facility: [facility] Address: [address] [place] [address] Performed By: #### A LLBG ####[facility]ATORYCLIA [id number] [address] [place] CO2 [Moles/Vol] 27 mmol/L Normal 22-28 [facility] Comment on above: Order Comment: Speci men Type: ARTERIAL BLOOD SPECIMENOrdering Facility: [facility] Address: [address] [place] [address] Performed By: #### A LLBG ####[facility]ATORYCLIA [id number] [address] CO2 adjusted to patient's actual temperature (Bld) [Partial pressure] 48 mmHg High 36-46 [facility] Comment on above: Order Comment: Speci men Type: ARTERIAL BLOOD SPECIMENOrdering Facility: [facility] Address: [address] [place] [address] Performed By: #### A LLBG ####[facility]ATORYCLIA [id number] [address] [place] Glucose [Mass/Vol] 134 mg/dL High 60-105 [facility] Comment on above: Order Comment: Speci men Type: ARTERIAL BLOOD SPECIMENOrdering Facility: [facility] Address: [address] [place] [address] Performed By: #### A LLBG ####[facility]ATORYCLIA [id number] [address] [place] HCO3 (Bld) [Moles/Vol] 29 mmol/L High 22-26 [facility] Comment on above: Order Comment: Speci men Type: ARTERIAL BLOOD SPECIMENOrdering Facility: [facility] Address: [address] [place] [address] Performed By: #### A LLBG ####[facility]ATORYCLIA [id number] [address] Hematocrit (Bld) [Volume fraction] 31.4 % Low 39.0-51.0 [facility] Comment on above: Order Comment: Speci men Type: ARTERIAL BLOOD SPECIMENOrdering Facility: [facility] Address: [address] [place] [address] Performed By: #### A LLBG ####[facility]ATORYCLIA [id number] [address] [place] Hemoglobin (Bld) [Mass/Vol] 10.2 g/dL Low 13.0-17.0 [facility] Comment on above: Order Comment: Speci men Type: ARTERIAL BLOOD SPECIMENOrdering Facility: [facility] Address: [facility] [address] Performed By: #### A LLBG ####[facility]ATORYCLIA [id number] [address] Methemoglobin (Bld) [Mass fraction] % Normal 0.0-1.5 [facility] Comment on above: Order Comment: Speci men Type: ARTERIAL BLOOD SPECIMENOrdering Facility: [facility] Address: [address] [place] [address] Performed By: #### A LLBG ####[facility]ATORYCLIA [id number] [address] O2 THERAPY Ventilator Normal [facility] Comment on above: Order Comment: Speci men Type: ARTERIAL BLOOD SPECIMENOrdering Facility: [facility] Address: [address] [place] [address] Performed By: #### A LLBG ####[facility]ATORYCLIA [id number] [address] Oxygen (Bld) [Partial pressure] 113 mm Hg High 85-95 [facility] Comment on above: Order Comment: Speci men Type: ARTERIAL BLOOD SPECIMENOrdering Facility: [facility] Address: [address] [place] [address] Performed By: #### A LLBG ####[facility]ATORYCLIA [id number] [address] Oxygen adjusted to patient's actual temperature (Bld) [Partial pressure] 119 mmHg High 85-95 [facility] Comment on above: Order Comment: Speci men Type: ARTERIAL BLOOD SPECIMENOrdering Facility: [facility] Address: [address] [place] [address] Performed By: #### A LLBG ####[facility]ATORYCLIA [id number] [place] [address] OXYGEN SATURATION, ARTERIAL 98 % Normal 95-98 [facility] Comment on above: Order Comment: Speci men Type: ARTERIAL BLOOD SPECIMENOrdering Facility: [facility] Address: [address] [place] [address] Performed By: #### A LLBG ####[facility]ATORYCLIA [id number] [address] [place] Oxyhemoglobin (BldA) [Mass fraction] 96 % Normal 95-98 [facility] Comment on above: Order Comment: Speci men Type: ARTERIAL BLOOD SPECIMENOrdering Facility: [facility] Address: [address] [place] [address] Performed By: #### A LLBG ####[facility]ATORYCLIA [id number] [address] [place] pH (Bld) 7.41 [pH] Normal 7.35-7.45 [facility] Comment on above: Order Comment: Speci men Type: ARTERIAL BLOOD SPECIMENOrdering Facility: [facility] Address: [address] [place] [address] Performed By: #### A LLBG ####[facility]ATORYCLIA [id number] [address] pH adjusted to patient's actual temperature (Bld) 7.40 Normal 7.35-7.45 [facility] Comment on above: Order Comment: Speci men Type: ARTERIAL BLOOD SPECIMENOrdering Facility: [facility] Address: [address] [place] [address] Performed By: #### A LLBG ####[facility]ATORYCLIA [id number] [address] [place] Potassium [Moles/Vol] 4.3 mmol/L Normal 3.5-5.0 [facility] Comment on above: Order Comment: Speci men Type: ARTERIAL BLOOD SPECIMENOrdering Facility: [facility] Address: [address] [place] [address] Performed By: #### A LLBG ####[facility]ATORYCLIA [id number] [address] [place] Sodium [Moles/Vol] 144 mmol/L Normal 136-144 [facility] Comment on above: Order Comment: Speci men Type: ARTERIAL BLOOD SPECIMENOrdering Facility: [facility] Address: [address] [address] Performed By: #### A LLBG ####[facility]ORATORYCLIA [id number] [address] Bacteria CSF Culton 07-24-19 22 Bacteria identified Cx Nom (CSF) Abnormal [facility] Comment on above: Performed By: #### 6 06-4 ####[facility]ATORYCLIA [id number] [address] [place] Basic metabolic 2000 panelon 07-23-2021 Anion gap [Moles/Vol] 12 mmol/L Normal 9-18 [facility] Comment on above: Order Comment: Speci men Type: BLOOD SPECIMENOrdering Facility: [facility] Address: [address] [place] [address] Performed By: #### 2 4321-2 ####[facility]ATORYCLIA [id number] [address] [place] Calcium [Mass/Vol] 9.7 mg/dL Normal 8.5-10.2 [facility] Comment on above: Order Comment: Speci men Type: BLOOD SPECIMENOrdering Facility: [facility] Address: [address] [address] Performed By: #### 2 4321-2 ####[facility]ATORYCLIA [id number] [address] [place] Chloride [Moles/Vol] 105 mmol/L Normal 97-105 [facility] Comment on above: Order Comment: Speci men Type: BLOOD SPECIMENOrdering Facility: [facility] Address: [address] [address] Performed By: #### 2 4321-2 ####[facility]ATORYCLIA [id number] [address] STATES OF [facility] CO2 [Moles/Vol] 28 mmol/L Normal 22-30 [facility] Comment on above: Order Comment: Speci men Type: BLOOD SPECIMENOrdering Facility: [facility] Address: [address] [place] [address] Performed By: #### 2 4321-2 ####[facility]ATORYCLIA [id number] [address] [place] OF [facility] Creatinine [Mass/Vol] 0.78 mg/dL Normal 0.73-1.22 [facility] Comment on above: Order Comment: Speci men Type: BLOOD SPECIMENOrdering Facility: [facility] Address: [address] [place] [address] Performed By: #### 2 4321-2 ####[facility]CL[facility] [id number] [address] ESTIMATED GLOMERULAR FILTRATION RATE 97 mL/min/1.73m??? Normal >=60 [facility] Comment on above: Order Comment: Speci men Type: BLOOD SPECIMENOrdering Facility: [facility] Address: [address] [place] [address] Result Comment: Luzmaria mated Glomerular Filtration Rate [...] actual GFR. Performed By: #### 2 4321-2 ####[facility]ATORYCLIA [id number] [address] STATES OF [facility] Glucose [Mass/Vol] 127 mg/dL High 74-99 [facility] Comment on above: Order Comment: Speci men Type: BLOOD SPECIMENOrdering Facility: [facility] Address: [address] [place] [address] Result Comment: The [place] [employer] (ADA) provides guidance for cutoff [...] Standards of Medical Care in Diabetes 2016, [place] [employer]. Diabetes Care. 2016.39(Suppl 1). Performed By: #### 2 4321-2 ####[facility]ATORYCLIA [id number] [address] STATES OF [facility] Potassium [Moles/Vol] 4.3 mmol/L Normal 3.7-5.1 [facility] Comment on above: Order Comment: Shira feldman Type: BLOOD SPECIMENOrdering Facility: [facility] Address: [address] [place] [address] Performed By: #### 2 4321-2 ####[facility]ATORYCLIA [id number] [address] STATES [facility] Sodium [Moles/Vol] 145 mmol/L High 136-144 [facility] Comment on above: Order Comment: Shira feldman Type: BLOOD SPECIMENOrdering Facility: [facility] Address: [address] [place] [address] Performed By: #### 2 4321-2 ####[facility]ATORYCLIA [id number] [address] STATES [facility] Urea nitrogen [Mass/Vol] 37 mg/dL High 9-24 [facility] Comment on above: Order Comment: Shira feldman Type: BLOOD SPECIMENOrdering Facility: [facility] Address: [address] [place] [address] Performed By: #### 2 4321-2 ####[facility]ATORYCLIA [id number] [place] [address] [place] C diff Tox gens Stl Ql MEGAN+p robeon 07-23-2021 C. difficile toxin genes MEGAN+probe Ql (Stl) Negative Normal Negative for C. difficile toxin by PCR [facility] Comment on above: Order Comment: Speci men Type: STOOL SPECIMENOrdering Facility: [facility] Address: [address] [place] [address] Performed By: #### 5 4067-4 ####[facility]ATORYCLIA [id number] [address] STATES OF [facility] CBC W Auto Differential pane l (Bld)on 07-23-2021 Basophils (Bld) [#/Vol] 0.07 10*3/uL Normal <0.11 [facility] Comment on above: Order Comment: Speci men Type: BLOOD SPECIMENOrdering Facility: [facility] Address: [address] [place] [address] Performed By: #### 5 7021-8 ####[facility]ATORYCLIA [id number] [address] STATES OF [facility] Basophils/100 WBC (Bld) 0.5 % Normal [facility] Comment on above: Order Comment: Speci men Type: BLOOD SPECIMENOrdering Facility: [facility] Address: [address] [place] [address] Performed By: #### 5 7021-8 ####[facility]ATORYCLIA [id number] [address] Differential cell count method Nom (Bld) Auto Normal [facility] Comment on above: Order Comment: Speci men Type: BLOOD SPECIMENOrdering Facility: [facility] Address: [address] [place] [address] Performed By: #### 5 7021-8 ####[facility]ORATORYCLIA [id number] [place] [address] [place] Eosinophils (Bld) [#/Vol] 10*3/uL Normal <0.46 [facility] Comment on above: Order Comment: Speci men Type: BLOOD SPECIMENOrdering Facility: [facility] Address: [address] [place] [address] Performed By: #### 5 7021-8 ####[facility]ATORYCLIA [id number] [address] Eosinophils/100 WBC (Bld) 0.2 % Normal [facility] Comment on above: Order Comment: Speci men Type: BLOOD SPECIMENOrdering Facility: [facility] Address: [address] [place] [address] Performed By: #### 5 7021-8 ####[facility]ORATORYCLIA [id number] [address] [place] Erythrocyte distribution width (RBC) [Ratio] 16.7 % High 11.5-15.0 [facility] Comment on above: Order Comment: Speci men Type: BLOOD SPECIMENOrdering Facility: [facility] Address: [address] [place] [address] Performed By: #### 5 7021-8 ####[facility]ATORYCLIA [id number] [address] Hematocrit (Bld) [Volume fraction] 32.8 % Low 39.0-51.0 [facility] Comment on above: Order Comment: Speci men Type: BLOOD SPECIMENOrdering Facility: [facility] Address: [address] [place] [address] Performed By: #### 5 7021-8 ####[facility]ORATORYCLIA [id number] [address] [place] Hemoglobin (Bld) [Mass/Vol] 9.7 g/dL Low 13.0-17.0 [facility] Comment on above: Order Comment: Speci men Type: BLOOD SPECIMENOrdering Facility: [facility] Address: [address] [place] [address] Performed By: #### 5 7021-8 ####[facility]ATORYCLIA [id number] [address] [place] IMMATURE GRAN % 0.7 % Normal [facility] Comment on above: Order Comment: Speci men Type: BLOOD SPECIMENOrdering Facility: [facility] Address: [address] [place] [address] Performed By: #### 5 7021-8 ####[facility]ATORYCLIA [id number] [address] IMMATURE GRAN ABS 0.09 k/uL Normal <0.10 [facility] Comment on above: Order Comment: Speci men Type: BLOOD SPECIMENOrdering Facility: [facility] Address: [address] [place] [address] Performed By: #### 5 7021-8 ####[facility]ATORYCLIA [id number] [address] Lymphocytes (Bld) [#/Vol] 1.94 10*3/uL Normal 1.00-4.00 [facility] Comment on above: Order Comment: Speci men Type: BLOOD SPECIMENOrdering Facility: [facility] Address: [address] [place] [address] Performed By: #### 5 7021-8 ####[facility]ATORYCLIA [id number] [address] Lymphocytes/100 WBC (Bld) 14.6 % Normal [facility] Comment on above: Order Comment: Speci men Type: BLOOD SPECIMENOrdering Facility: [facility] Address: [address] [place] [address] Performed By: #### 5 7021-8 ####[facility]ORATORYCLIA [id number] [address] MCH (RBC) [Entitic mass] 27.2 pg Normal 26.0-34.0 [facility] Comment on above: Order Comment: Speci men Type: BLOOD SPECIMENOrdering Facility: [facility] Address: [address] [place] [address] Performed By: #### 5 7021-8 ####[facility] LABORATORYCLIA [id number] [place] [address] [place] MCHC (RBC) [Mass/Vol] 29.6 g/dL Low 30.5-36.0 [facility] Comment on above: Order Comment: Speci men Type: BLOOD SPECIMENOrdering Facility: [facility] Address: [address] [place] [address] Performed By: #### 5 7021-8 ####[facility]ORATORYCLIA [id number] [place] [address] [place] MCV (RBC) [Entitic vol] 92.1 fL Normal 80.0-100.0 [facility] Comment on above: Order Comment: Speci men Type: BLOOD SPECIMENOrdering Facility: [facility] Address: [address] [place] [address] Performed By: #### 5 7021-8 ####[facility] LABORATORYCLIA [id number] [address] [place] Monocytes (Bld) [#/Vol] 0.74 10*3/uL Normal <0.87 [facility] Comment on above: Order Comment: Speci men Type: BLOOD SPECIMENOrdering Facility: [facility] Address: [address] [place] [address] Performed By: #### 5 7021-8 ####[facility] LABORATORYCLIA [id number] [address] Monocytes/100 WBC (Bld) 5.6 % Normal [facility] Comment on above: Order Comment: Speci men Type: BLOOD SPECIMENOrdering Facility: [facility] Address: [address] [place] [address] Performed By: #### 5 7021-8 ####[facility] LABORATORYCLIA [id number] [address] [place] Neutrophils (Bld) [#/Vol] 10.43 10*3/uL High 1.45-7.50 [facility] Comment on above: Order Comment: Speci men Type: BLOOD SPECIMENOrdering Facility: [facility] Address: [address] [place] [address] Performed By: #### 5 7021-8 ####[facility] LABORATORYCLIA [id number] [address] Neutrophils/100 WBC (Bld) 78.4 % Normal [facility] Comment on above: Order Comment: Speci men Type: BLOOD SPECIMENOrdering Facility: [facility] Address: [address] [place] [address] Performed By: #### 5 7021-8 ####[facility] LABORATORYCLIA [id number] [address] [place] Nucleated RBC (Bld) [#/Vol] 10*3/uL Normal <0.01 [facility] Comment on above: Order Comment: Speci men Type: BLOOD SPECIMENOrdering Facility: [facility] Address: [address] [place] [address] Performed By: #### 5 7021-8 ####[facility]ORATORYCLIA [id number] [address] Nucleated RBC/100 WBC (Bld) [Ratio] 0.0 /100 WBC Normal [facility] Comment on above: Order Comment: Speci men Type: BLOOD SPECIMENOrdering Facility: [facility] Address: [address] [place] [address] Performed By: #### 5 7021-8 ####[facility]ORATORYCLIA [id number] [address] [place] Platelet mean volume (Bld) [Entitic vol] 11.0 fL Normal 9.0-12.7 [facility] Comment on above: Order Comment: Speci men Type: BLOOD SPECIMENOrdering Facility: [facility] Address: [address] [place] [address] Performed By: #### 5 7021-8 ####[facility]ORATORYCLIA [id number] [address] [place] Platelets (Bld) [#/Vol] 381 10*3/uL Normal 150-400 [facility] Comment on above: Order Comment: Speci men Type: BLOOD SPECIMENOrdering Facility: [facility] Address: [address] [place] [address] Performed By: #### 5 7021-8 ####[facility] LABORATORYCLIA [id number] [address] OF [facility] RBC (Bld) [#/Vol] 3.56 10*6/uL Low 4.20-6.00 [facility] Comment on above: Order Comment: Speci men Type: BLOOD SPECIMENOrdering Facility: [facility] Address: [address] [place] [address] Performed By: #### 5 7021-8 ####[facility]ORATORYCLIA [id number] [address] OF [facility] WBC (Bld) [#/Vol] 13.29 10*3/uL High 3.70-11.00 [facility] Comment on above: Order Comment: Speci men Type: BLOOD SPECIMENOrdering Facility: [facility] Address: [address] [place] [address] Performed By: #### 5 7021-8 ####[facility]ORATORYCLIA [id number] [address] CONSULT PROGon 07-23-2021 CONSULT PROG Normal [facility] CONSULT PROG Normal [facility] CSF MANUAL DIFFon 07-23-2021 DIF TTL, CSF 100 cells counted Normal [facility] Comment on above: Order Comment: Speci men Type: CEREBROSPINAL FLUIDOrdering Facility: [facility] Address: [address] [place] [address] Performed By: #### L [id number], [id number], 90091-5 ####[facility]ORATORYCLIA [id number] [address] [place] LYMPH%, CSF 2 % Low 50-90 [facility] Comment on above: Order Comment: Speci men Type: CEREBROSPINAL FLUIDOrdering Facility: [facility] Address: [address] [place] [address] Performed By: #### L [id number], [id number], 62791-4 ####[facility]ORATORYCLIA [id number] [place] [address] [place] MONO%, CSF 9 % Low 10-50 [facility] Comment on above: Order Comment: Speci men Type: CEREBROSPINAL FLUIDOrdering Facility: [facility] Address: [address] [place] [address] Performed By: #### L [id number], [id number], 20390-4 ####[facility]ORATORYCLIA [id number] [place] [address] [place] NEUT%, CSF 89 % High 0-3 [facility] Comment on above: Order Comment: Speci men Type: CEREBROSPINAL FLUIDOrdering Facility: [facility] Address: [address] [place] [address] Performed By: #### L [id number], [id number], 94071-6 ####[facility]ORATORYCLIA [id number] [address] CSF PATHOLOGIST INTERP (LAB REFLEX ORDER-NO BILL)on 07-23-2021 CSF STAFF REVIEW Negative for maligna nt cells. Numerous bacterial organisms present, cocci in pairs and chains. Recommend correlation with CSF culture results. Normal [facility] Comment on above: Order Comment: Speci men Type: CEREBROSPINAL FLUIDOrdering Facility: [facility] Address: [address] [place] [address] Performed By: #### L [id number], [id number], 17631-6 ####[facility]ORATORYCLIA [id number] [address] Pathologist name Reviewed by Amador Stevens MD [facility] Comment on above: Order Comment: Speci men Type: CEREBROSPINAL FLUIDOrdering Facility: [facility] Address: [address] [place] [address] Performed By: #### L [id number], [id number], 67809-9 ####[facility]ORATORYCLIA [id number] [address] BRAIN WO IVCONon 07-24-19 CT BRAIN WO IVCON Normal [facility] Cell count panel (CSF)on Clarity (CSF) Clear Normal Clear [facility] Comment on above: Order Comment: Speci men Type: CEREBROSPINAL FLUIDOrdering Facility: [facility] Address: [address] [place] [address] Performed By: #### L [id number], [id number], 44658-6 ####[facility]ORATORYCLIA [id number] [address] Clarity (Unsp spec) Not Indicated Normal Clear [facility] Comment on above: Order Comment: Speci men Type: CEREBROSPINAL FLUIDOrdering Facility: [facility] Address: [address] [place] [address] Performed By: #### L [id number], [id number], 90817-9 ####[facility]ORATORYCLIA [id number] [address] Color (CSF) Colorless Normal Colorless [facility] Comment on above: Order Comment: Speci men Type: CEREBROSPINAL FLUIDOrdering Facility: [facility] Address: [address] [place] [address] Performed By: #### L [id number], [id number], 86045-5 ####[facility]ORATORYCLIA [id number] [address] Color (Spun CSF) Not Indicated Normal Colorless [facility] Comment on above: Order Comment: Speci men Type: CEREBROSPINAL FLUIDOrdering Facility: [facility] Address: [address] [place] [address] Performed By: #### L [id number], [id number], 17032-6 ####[facility]ORATORYCLIA [id number] [address] CSF TUBE NUMBER [employer] Normal [facility] Comment on above: Order Comment: Speci men Type: CEREBROSPINAL FLUIDOrdering Facility: [facility] Address: [address] [place], [place] [address] Performed By: #### L [id number], [id number], 57235-6 ####[facility]ORATORYCLIA [id number] [address] RBC Manual cnt (CSF) [#/Vol] 7 cells/uL High 0-5 [facility] Comment on above: Order Comment: Speci men Type: CEREBROSPINAL FLUIDOrdering Facility: [facility] Address: [address] [place] [address] Performed By: #### L [id number], [id number], 39818-1 ####[facility]ORATORYCLIA [id number] [address] WBC Manual cnt (CSF) [#/Vol] 193 cells/uL High 0-5 [facility] Comment on above: Order Comment: Speci men Type: CEREBROSPINAL FLUIDOrdering Facility: [facility] Address: [address] [place] [address] Performed By: #### L [id number], [id number], 74726-6 ####[facility]ORATORYCLIA [id number] [address] [place] Glucose CSF-ncon 2 Glucose (CSF) [Mass/Vol] 81 mg/dL High 40-70 [facility] Comment on above: Order Comment: Speci men Type: CEREBROSPINAL FLUIDOrdering Facility: [facility] Address: [address] [place] [address] Result Comment: Lumb ar CSF glucose values of healthy patients are approximately 60% of the plasma values and must always be compared with a concurrently measured plasma value for adequate clinical interpretation.References: 1. Glucose HK (GLUC3) [package insert V 12.0 Finnish]. [employer], [place], [place]. September 2015. 2. Michelle Moore, Loki H. (2015). Chapter 7: Glucose and Lactate. Marianela Rothman.(eds.), Cerebrospinal Fluid in Clinical Neurology. [place]man: [employer]. Performed By: #### 2 342-4, 2880-3 ####[facility]ORATORYCLIA [id number] [address] [place] NURSING PROGon 07-23-2021 NURSING PROG Normal [facility] NURSING PROG Normal [facility] Prot CSF-mCncon 07-23-2021 Protein (CSF) [Mass/Vol] 68 mg/dL High 15-45 [facility] Comment on above: Order Comment: Speci men Type: CEREBROSPINAL FLUIDOrdering Facility: [facility] Address: [address] [place] [address] Performed By: #### 2 342-4, 2880-3 ####[facility]ORATORYCLIA [id number] [address] Urinalysis complete panel (U )on 07-23-2021 Bilirubin Ql (U) Negative Normal Negative [facility] Comment on above: Order Comment: Speci men Type: URINE SPECIMENOrdering Facility: [facility] Address: [address] [place] [address] Performed By: #### 2 4356-8 ####[facility]ORATORYCLIA [id number] [address] [place] Clarity (Unsp spec) Clear Normal Clear [facility] Comment on above: Order Comment: Speci men Type: URINE SPECIMENOrdering Facility: [facility] Address: [address] [place] [address] Performed By: #### 2 4356-8 ####[facility]ORATORYCLIA [id number] [address] Color (U) Light Yellow Normal yellow [facility] Comment on above: Order Comment: Speci men Type: URINE SPECIMENOrdering Facility: [facility] Address: [address] [place] [address] Performed By: #### 2 4356-8 ####[facility]ORATORYCLIA [id number] [address] [place] Glucose Test strip (U) [Mass/Vol] Negative Normal Negative [facility] Comment on above: Order Comment: Speci men Type: URINE SPECIMENOrdering Facility: [facility] Address: [address] [place] [address] Performed By: #### 2 4356-8 ####[facility]ORATORYCLIA [id number] [address] Hemoglobin Ql (U) Negative Normal Negative [facility] Comment on above: Order Comment: Speci men Type: URINE SPECIMENOrdering Facility: [facility] Address: [address] [place] [address] Performed By: #### 2 4356-8 ####[facility] LABORATORYCLIA [id number] [address] [place] Ketones Ql (U) Negative Normal Negative [facility] Comment on above: Order Comment: Speci men Type: URINE SPECIMENOrdering Facility: [facility] Address: [address] [place] [address] Performed By: #### 2 4356-8 ####[facility]ORATORYCLIA [id number] [address] [place] Leukocyte esterase Test strip Ql (U) Negative Normal Negative [facility] Comment on above: Order Comment: Speci men Type: URINE SPECIMENOrdering Facility: [facility] Address: [address] [place] [address] Performed By: #### 2 4356-8 ####[facility]ORATORYCLIA [id number] [address] [place] Nitrite Ql (U) Negative Normal Negative [facility] Comment on above: Order Comment: Speci men Type: URINE SPECIMENOrdering Facility: [facility] Address: [address] [place] [address] Performed By: #### 2 4356-8 ####[facility]ORATORYCLIA [id number] [address] [place] pH (U) 6.0 [pH] Normal 5.0-8.0 [facility] Comment on above: Order Comment: Speci men Type: URINE SPECIMENOrdering Facility: [facility] Address: [address] [place] [address] Performed By: #### 2 4356-8 ####[facility]ORATORYCLIA [id number] [address] Protein (U) [Mass/Vol] 1+ Abnormal Negative [facility] Comment on above: Order Comment: Speci men Type: URINE SPECIMENOrdering Facility: [facility] Address: [address] [place] [address] Performed By: #### 2 4356-8 ####[facility]ORATORYCLIA [id number] [address] RBC LM.HPF (Urine sed) [#/Area] 0-3 /HPF Normal 0-3 /HPF [facility] Comment on above: Order Comment: Speci men Type: URINE SPECIMENOrdering Facility: [facility] Address: [address] [place] [address] Performed By: #### 2 4356-8 ####[facility]ORATORYCLIA [id number] [address] Specific gravity (U) [Rel density] 1.018 Normal 1.005-1.030 [facility] Comment on above: Order Comment: Speci men Type: URINE SPECIMENOrdering Facility: [facility] Address: [address] [place] [address] Performed By: #### 2 4356-8 ####[facility]ORATORYCLIA [id number] [address] Urobilinogen Ql (U) Normal Normal Negative [facility] Comment on above: Order Comment: Speci men Type: URINE SPECIMENOrdering Facility: [facility] Address: [address] [place] [address] Performed By: #### 2 4356-8 ####[facility]ORATORYCLIA [id number] [address] [place] WBC LM.HPF (Urine sed) [#/Area] 0-5 /HPF Normal 0-5 /HPF [facility] Comment on above: Order Comment: Speci men Type: URINE SPECIMENOrdering Facility: [facility] Address: [address] [place] [address] Performed By: #### 2 4356-8 ####[facility]ORATORYCLIA [id number] [address] Vancomycin random [Mass/Vol] on 07-23-2021 Vancomycin [Mass/Vol] 12.9 ug/mL Normal 10.0-20.0 [facility] Comment on above: Order Comment: Speci men Type: BLOOD SPECIMENOrdering Facility: [facility] Address: [address] [place] [address] Result Comment: Refe rence ranges and high/low indicator flags are provided as general guidelines only. The treating physician must determine appropriate target levels/dosing based on the specific clinical situation. Performed By: #### 4 091-5 ####[facility]ORATORYCLIA [id number] [address] OF [facility] XR CHEST 1V FRONTALon 2021 XR CHEST 1V FRONTAL Normal [facility] XR CHEST 1V FRONTAL Normal [facility] aPTT PPPon 07-23-2021 aPTT Coag (PPP) [Time] 32.3 s Normal 23.0-32.4 [facility] Comment on above: Order Comment: Speci men Type: BLOOD SPECIMENOrdering Facility: [facility] Address: [address] [address] Performed By: #### 1 4979-9 ####[facility]ORATORYCLIA [id number] [address] aPTT Coag (PPP) [Time] 57.9 s High 23.0-32.4 [facility] Comment on above: Order Comment: Speci men Type: BLOOD SPECIMENOrdering Facility: [facility] Address: [address] [place] [address] Performed By: #### 1 4979-9 ####[facility]ORATORYCLIA [id number] [place] [address] [place] aPTT Coag (PPP) [Time] 46.3 s High 23.0-32.4 [facility] Comment on above: Order Comment: Speci men Type: BLOOD SPECIMENOrdering Facility: [facility] Address: [address] [place] [address] Performed By: #### 1 4979-9 ####[facility]ORATORYCLIA [id number] [place] [address] [place] Basic metabolic 2000 panelon 07-22-2021 Anion gap [Moles/Vol] 8 mmol/L Low 9-18 [facility] Comment on above: Order Comment: Speci men Type: BLOOD SPECIMENOrdering Facility: [facility] Address: [address] [place] [address] Performed By: #### 2 4321-2 ####[facility]ORATORYCLIA [id number] [place] [address] [place] Calcium [Mass/Vol] 9.5 mg/dL Normal 8.5-10.2 [facility] Comment on above: Order Comment: Speci men Type: BLOOD SPECIMENOrdering Facility: [facility] Address: [address] [place] [address] Performed By: #### 2 4321-2 ####[facility]ORATORYCLIA [id number] [address] [place] Chloride [Moles/Vol] 105 mmol/L Normal 97-105 [facility] Comment on above: Order Comment: Speci men Type: BLOOD SPECIMENOrdering Facility: [facility] Address: [address] [place] [address] Performed By: #### 2 4321-2 ####[facility]ORATORYCLIA [id number] [place] [address] [place] CO2 [Moles/Vol] 32 mmol/L High 22-30 [facility] Comment on above: Order Comment: Speci men Type: BLOOD SPECIMENOrdering Facility: [facility] Address: [address] [place] [address] Performed By: #### 2 4321-2 ####[facility]ORATORYCLIA [id number] [address] STATES OF [facility] Creatinine [Mass/Vol] 0.75 mg/dL Normal 0.73-1.22 [facility] Comment on above: Order Comment: Shira feldman Type: BLOOD SPECIMENOrdering Facility: [facility] Address: [address] [place] [address] Performed By: #### 2 4321-2 ####[facility]ORATORYCLIA [id number] [address] ESTIMATED GLOMERULAR FILTRATION RATE 98 mL/min/1.73m??? Normal >=60 [facility] Comment on above: Order Comment: Shira feldman Type: BLOOD SPECIMENOrdering Facility: [facility] Address: [address] [place] [address] Result Comment: Luzmaria mated Glomerular Filtration Rate [...] actual GFR. Performed By: #### 2 4321-2 ####[facility]ORATORYCLIA [id number] [address] STATES OF [facility] Glucose [Mass/Vol] 128 mg/dL High 74-99 [facility] Comment on above: Order Comment: Shira francia Type: BLOOD SPECIMENOrdering Facility: [facility] Address: [address] [place] [address] Result Comment: The [place] Diabetes [employer] (ADA) provides guidance for cutoff [...] Standards of Medical Care in Diabetes 2016, [place] [employer]. Diabetes Care. 2016.39(Suppl 1). Performed By: #### 2 4321-2 ####[facility]ORATORYCLIA [id number] [address] STATES OF [facility] Potassium [Moles/Vol] 3.7 mmol/L Normal 3.7-5.1 [facility] Comment on above: Order Comment: Speci men Type: BLOOD SPECIMENOrdering Facility: [facility] Address: [address] [place] [address] Performed By: #### 2 4321-2 ####[facility]ORATORYCLIA [id number] [address] Sodium [Moles/Vol] 145 mmol/L High 136-144 [facility] Comment on above: Order Comment: Shira feldman Type: BLOOD SPECIMENOrdering Facility: [facility] Address: [address] [place] [address] Performed By: #### 2 4321-2 ####[facility]ORATORYCLIA [id number] [address] Urea nitrogen [Mass/Vol] 39 mg/dL High 9-24 [facility] Comment on above: Order Comment: Shira feldman Type: BLOOD SPECIMENOrdering Facility: [facility] Address: [address] [place] [address] Performed By: #### 2 4321-2 ####[facility]ORATORYCLIA [id number] [address] [place] CASE MANAGEMon 07-22-2021 CASE MANAGEM Normal [facility] CBC W Auto Differential pane l (Bld)on 07-22-2021 Basophils (Bld) [#/Vol] 0.06 10*3/uL Normal <0.11 [facility] Comment on above: Order Comment: Speci men Type: BLOOD SPECIMENOrdering Facility: [facility] Address: [address] [address] Performed By: #### 5 7021-8 ####[facility]ORATORYCLIA [id number] [address] STATES [facility] Basophils/100 WBC (Bld) 0.5 % Normal [facility] Comment on above: Order Comment: Speci men Type: BLOOD SPECIMENOrdering Facility: [facility] Address: [address] [place] [address] Performed By: #### 5 7021-8 ####[facility]ORATORYCLIA [id number] [address] Differential cell count method Nom (Bld) Auto Normal [facility] Comment on above: Order Comment: Speci men Type: BLOOD SPECIMENOrdering Facility: [facility] Address: [address] [place] [address] Performed By: #### 5 7021-8 ####[facility]ORATORYCLIA [id number] [address] [place] Eosinophils (Bld) [#/Vol] 0.44 10*3/uL Normal <0.46 [facility] Comment on above: Order Comment: Speci men Type: BLOOD SPECIMENOrdering Facility: [facility] Address: [address] [place] [address] Performed By: #### 5 7021-8 ####[facility]ORATORYCLIA [id number] [address] Eosinophils/100 WBC (Bld) 3.9 % Normal [facility] Comment on above: Order Comment: Speci men Type: BLOOD SPECIMENOrdering Facility: [facility] Address: [address] [place] [address] Performed By: #### 5 7021-8 ####[facility]ORATORYCLIA [id number] [address] [place] Erythrocyte distribution width (RBC) [Ratio] 17.0 % High 11.5-15.0 [facility] Comment on above: Order Comment: Speci men Type: BLOOD SPECIMENOrdering Facility: [facility] Address: [address] [place] [address] Performed By: #### 5 7021-8 ####[facility]ORATORYCLIA [id number] [address] Hematocrit (Bld) [Volume fraction] 32.0 % Low 39.0-51.0 [facility] Comment on above: Order Comment: Speci men Type: BLOOD SPECIMENOrdering Facility: [facility] Address: [address] [place] [address] Performed By: #### 5 7021-8 ####[facility]ORATORYCLIA [id number] [address] Hemoglobin (Bld) [Mass/Vol] 9.3 g/dL Low 13.0-17.0 [facility] Comment on above: Order Comment: Speci men Type: BLOOD SPECIMENOrdering Facility: [facility] Address: [address] [place] [address] Performed By: #### 5 7021-8 ####[facility]ORATORYCLIA [id number] [address] IMMATURE GRAN % 0.5 % Normal [facility] Comment on above: Order Comment: Speci men Type: BLOOD SPECIMENOrdering Facility: [facility] Address: [address] [place] [address] Performed By: #### 5 7021-8 ####[facility]ORATORYCLIA [id number] [address] IMMATURE GRAN ABS 0.06 k/uL Normal <0.10 [facility] Comment on above: Order Comment: Speci men Type: BLOOD SPECIMENOrdering Facility: [facility] Address: [address] [place] [address] Performed By: #### 5 7021-8 ####[facility]ORATORYCLIA [id number] [address] Lymphocytes (Bld) [#/Vol] 1.83 10*3/uL Normal 1.00-4.00 [facility] Comment on above: Order Comment: Speci men Type: BLOOD SPECIMENOrdering Facility: [facility] Address: [address] [place] [address] Performed By: #### 5 7021-8 ####[facility] LABORATORYCLIA [id number] [address] Lymphocytes/100 WBC (Bld) 16.1 % Normal [facility] Comment on above: Order Comment: Speci men Type: BLOOD SPECIMENOrdering Facility: [facility] Address: [address] [place] [address] Performed By: #### 5 7021-8 ####[facility] LABORATORYCLIA [id number] [address] STATES OF [facility] MCH (RBC) [Entitic mass] 27.0 pg Normal 26.0-34.0 [facility] Comment on above: Order Comment: Speci men Type: BLOOD SPECIMENOrdering Facility: [facility] Address: [address] [place] [address] Performed By: #### 5 7021-8 ####[facility] LABORATORYCLIA [id number] [address] MCHC (RBC) [Mass/Vol] 29.1 g/dL Low 30.5-36.0 [facility] Comment on above: Order Comment: Speci men Type: BLOOD SPECIMENOrdering Facility: [facility] Address: [address] [place] [address] Performed By: #### 5 7021-8 ####[facility] LABORATORYCLIA [id number] [address] MCV (RBC) [Entitic vol] 92.8 fL Normal 80.0-100.0 [facility] Comment on above: Order Comment: Speci men Type: BLOOD SPECIMENOrdering Facility: [facility] Address: [address] [place] [address] Performed By: #### 5 7021-8 ####[facility]ORATORYCLIA [id number] [place] [address] [place] Monocytes (Bld) [#/Vol] 0.87 10*3/uL High <0.87 [facility] Comment on above: Order Comment: Speci men Type: BLOOD SPECIMENOrdering Facility: [facility] Address: [address] [place] [address] Performed By: #### 5 7021-8 ####[facility]ORATORYCLIA [id number] [place] [address] [place] Monocytes/100 WBC (Bld) 7.6 % Normal [facility] Comment on above: Order Comment: Speci men Type: BLOOD SPECIMENOrdering Facility: [facility] Address: [address] [place] [address] Performed By: #### 5 7021-8 ####[facility] LABORATORYCLIA [id number] [place] [address] [place] Neutrophils (Bld) [#/Vol] 8.12 10*3/uL High 1.45-7.50 [facility] Comment on above: Order Comment: Speci men Type: BLOOD SPECIMENOrdering Facility: [facility] Address: [address] [place] [address] Performed By: #### 5 7021-8 ####[facility] LABORATORYCLIA [id number] [address] [place] Neutrophils/100 WBC (Bld) 71.4 % Normal [facility] Comment on above: Order Comment: Speci men Type: BLOOD SPECIMENOrdering Facility: [facility] Address: [address] [place] [address] Performed By: #### 5 7021-8 ####[facility]ORATORYCLIA [id number] [place] [address] [place] Nucleated RBC (Bld) [#/Vol] 10*3/uL Normal <0.01 [facility] Comment on above: Order Comment: Speci men Type: BLOOD SPECIMENOrdering Facility: [facility] Address: [address] [address] Performed By: #### 5 7021-8 ####[facility] LABORATORYCLIA [id number] [address] [place] Nucleated RBC/100 WBC (Bld) [Ratio] 0.0 /100 WBC Normal [facility] Comment on above: Order Comment: Speci men Type: BLOOD SPECIMENOrdering Facility: [facility] Address: [address] [place] [address] Performed By: #### 5 7021-8 ####[facility] LABORATORYCLIA [id number] [address] [place] Platelet mean volume (Bld) [Entitic vol] 10.8 fL Normal 9.0-12.7 [facility] Comment on above: Order Comment: Speci men Type: BLOOD SPECIMENOrdering Facility: [facility] Address: [address] [place] [address] Performed By: #### 5 7021-8 ####[facility]ORATORYCLIA [id number] [place] [address] [place] Platelets (Bld) [#/Vol] 362 10*3/uL Normal 150-400 [facility] Comment on above: Order Comment: Speci men Type: BLOOD SPECIMENOrdering Facility: [facility] Address: [address] [place] [address] Performed By: #### 5 7021-8 ####[facility]ORATORYCLIA [id number] [place] [address] [place] RBC (Bld) [#/Vol] 3.45 10*6/uL Low 4.20-6.00 [facility] Comment on above: Order Comment: Speci men Type: BLOOD SPECIMENOrdering Facility: [facility] Address: [address] [place] [address] Performed By: #### 5 7021-8 ####[facility] LABORATORYCLIA [id number] [address] [place] WBC (Bld) [#/Vol] 11.38 10*3/uL High 3.70-11.00 [facility] Comment on above: Order Comment: Speci men Type: BLOOD SPECIMENOrdering Facility: [facility] Address: [address] [place] [address] Performed By: #### 5 7021-8 ####[facility]ORATORYCLIA [id number] [address] Magnesium SerPl-mCncon 07-22 Magnesium [Mass/Vol] 2.3 mg/dL Normal 1.7-2.3 [facility] Comment on above: Order Comment: Speci men Type: BLOOD SPECIMENOrdering Facility: [facility] Address: [address] [place] [address] Performed By: #### 1 9123-9, 2777-1, 00224-8 ####[facility] LABORATORYCLIA [id number] [address] NT-proBNP SerPl-ncon 07-22 Natriuretic peptide.B prohormone N-Terminal [Mass/Vol] 328 pg/mL High <125 [facility] Comment on above: Order Comment: Speci men Type: BLOOD SPECIMENOrdering Facility: [facility] Address: [address] [place] [address] Performed By: #### 1 9123-9, 2777-1, 94326-6 ####[facility]ORATORYCLIA [id number] [address] [place] NURSING PROGon 07-22-2021 NURSING PROG Normal [facility] NUTRITIONon 07-22-2021 NUTRITION Normal [facility] Phosphate SerPl-mCncon 07-22 Phosphate [Mass/Vol] 3.5 mg/dL Normal 2.7-4.8 [facility] Comment on above: Order Comment: Speci men Type: BLOOD SPECIMENOrdering Facility: [facility] Address: [address] [place] [address] Performed By: #### 1 9123-9, 2777-1, 23866-0 ####[facility]ORATORYCLIA [id number] [address] THERAPY NTon 07-22-2021 THERAPY NT Normal [facility] THERAPY NT Normal [facility] aPTT PPPon 07-22-2021 aPTT Coag (PPP) [Time] 50.1 s High 23.0-32.4 [facility] Comment on above: Order Comment: Speci men Type: BLOOD SPECIMENOrdering Facility: [facility] Address: [address] [place] [address] Performed By: #### 1 4979-9 ####[facility] LABORATORYCLIA [id number] [address] OF [facility] ALLIED HEALTHon 07-21-2021 ALLIED HEALTH Normal [facility] Bacteria Spec Resp Culton Bacteria identified Respiratory culture Nom (Unsp spec) Abnormal [facility] Comment on above: Performed By: #### 3 2355-0 ####[facility]ORATORYCLIA [id number] [address] [place] Basic metabolic 2000 panelon 07-21-2021 Anion gap [Moles/Vol] 9 mmol/L Normal - [facility] Comment on above: Order Comment: Speci men Type: BLOOD SPECIMENOrdering Facility: [facility] Address: [address] [place] [address] Performed By: #### 1 9123-9, 2777-, 18321-4 ####[facility]ORATORYCLIA [id number] [address] [place] Calcium [Mass/Vol] 9.9 mg/dL Normal 8.5-10.2 [facility] Comment on above: Order Comment: Speci men Type: BLOOD SPECIMENOrdering Facility: [facility] Address: [facility] [place] [address] Performed By: #### 1 9123-9, 2777-1, 99006-8 ####[facility]ORATORYCLIA [id number] [address] [place] Chloride [Moles/Vol] 103 mmol/L Normal 97-105 [facility] Comment on above: Order Comment: Speci francia Type: BLOOD SPECIMENOrdering Facility: [facility] Address: [address] [place] [address] Performed By: #### 1 9123-9, 2777-1, 04847-2 ####[facility] LABORATORYCLIA [id number] [address] [place] CO2 [Moles/Vol] 33 mmol/L High 22-30 [facility] Comment on above: Order Comment: Speci men Type: BLOOD SPECIMENOrdering Facility: [facility] Address: [address] [place] [address] Performed By: #### 1 9123-9, 2777-1, 37091-5 ####[facility]CLIA [id number] [address] Creatinine [Mass/Vol] 0.80 mg/dL Normal 0.73-1.22 [facility] Comment on above: Order Comment: Speci men Type: BLOOD SPECIMENOrdering Facility: [facility] Address: [address] [place] [address] Performed By: #### 1 9123-9, 2777-1, 34085-5 ####[facility]ORATORYCLIA [id number] [address] ESTIMATED GLOMERULAR FILTRATION RATE 96 mL/min/1.73m??? Normal >=60 [facility] Comment on above: Order Comment: Speci men Type: BLOOD SPECIMENOrdering Facility: [facility] Address: [address] [place] [address] Result Comment: Luzmaria mated Glomerular Filtration Rate [...] GFR. Performed By: #### 1 9123-9, 2777-, 01542-9 ####[facility]ORATORYCLIA [id number] [place] [address] [place] Glucose [Mass/Vol] 148 mg/dL High 74-99 [facility] Comment on above: Order Comment: Shira feldman Type: BLOOD SPECIMENOrdering Facility: [facility] Address: [address] [place] [address] Result Comment: The [place] [employer] (ADA) provides guidance for cutoff [...] Standards of Medical Care in Diabetes 2016, [place] [employer]. Diabetes Care. 2016.39(Suppl 1). Performed By: #### 1 9123-9, 2777-, 35607-2 ####[facility]ITALCLIA [id number] [place] [address] [place] Potassium [Moles/Vol] 4.1 mmol/L Normal 3.7-5.1 [facility] Comment on above: Order Comment: Shira feldman Type: BLOOD SPECIMENOrdering Facility: [facility] Address: [address] [id number] Performed By: #### 1 9123-9, 2777-, 50501-1 ####[facility]ORATORYCLIA [id number] [place] [address] [place] Sodium [Moles/Vol] 145 mmol/L High 136-144 [facility] Comment on above: Order Comment: Shira feldman Type: BLOOD SPECIMENOrdering Facility: [facility] Address: [address] [address] Performed By: #### 1 9123-9, 2777-1, 96737-5 ####[facility]ORATORYCLIA [id number] [address] STATES [facility] Urea nitrogen [Mass/Vol] 40 mg/dL High 9-24 [facility] Comment on above: Order Comment: Speci men Type: BLOOD SPECIMENOrdering Facility: [facility] Address: [address] [place] [address] Performed By: #### 1 9123-9, 2777-1, 10113-1 ####[facility]ORATORYCLIA [id number] [address] CBC W Auto Differential pane l (Bld)on 07-21-2021 Basophils (Bld) [#/Vol] 0.06 10*3/uL Normal <0.11 [facility] Comment on above: Order Comment: Speci men Type: BLOOD SPECIMENOrdering Facility: [facility] Address: [address] [place] [address] Performed By: #### 5 7021-8 ####[facility]ORATORYCLIA [id number] [address] STATES [facility] Basophils/100 WBC (Bld) 0.4 % Normal [facility] Comment on above: Order Comment: Speci men Type: BLOOD SPECIMENOrdering Facility: [facility] Address: [address] [place] [address] Performed By: #### 5 7021-8 ####[facility]ORATORYCLIA [id number] [address] Differential cell count method Nom (Bld) Auto Normal [facility] Comment on above: Order Comment: Speci men Type: BLOOD SPECIMENOrdering Facility: [facility] Address: [address] [place] [address] Performed By: #### 5 7021-8 ####[facility]ORATORYCLIA [id number] [address] [place] Eosinophils (Bld) [#/Vol] 0.04 10*3/uL Normal <0.46 [facility] Comment on above: Order Comment: Speci men Type: BLOOD SPECIMENOrdering Facility: [facility] Address: [address] [place] [address] Performed By: #### 5 7021-8 ####[facility] LABORATORYCLIA [id number] [address] [place] Eosinophils/100 WBC (Bld) 0.3 % Normal [facility] Comment on above: Order Comment: Speci men Type: BLOOD SPECIMENOrdering Facility: [facility] Address: [address] [place] [address] Performed By: #### 5 7021-8 ####[facility]ORATORYCLIA [id number] [address] STATES [facility] Erythrocyte distribution width (RBC) [Ratio] 17.0 % High 11.5-15.0 [facility] Comment on above: Order Comment: Speci men Type: BLOOD SPECIMENOrdering Facility: [facility] Address: [address] [place] [address] Performed By: #### 5 7021-8 ####[facility] LABORATORYCLIA [id number] [address] [place] Hematocrit (Bld) [Volume fraction] 33.1 % Low 39.0-51.0 [facility] Comment on above: Order Comment: Speci men Type: BLOOD SPECIMENOrdering Facility: [facility] Address: [address] [place] [address] Performed By: #### 5 7021-8 ####[facility]ORATORYCLIA [id number] [address] [place] Hemoglobin (Bld) [Mass/Vol] 9.7 g/dL Low 13.0-17.0 [facility] Comment on above: Order Comment: Speci men Type: BLOOD SPECIMENOrdering Facility: [facility] Address: [address] [place] [address] Performed By: #### 5 7021-8 ####[facility]ORATORYCLIA [id number] [address] IMMATURE GRAN % 0.5 % Normal [facility] Comment on above: Order Comment: Speci men Type: BLOOD SPECIMENOrdering Facility: [facility] Address: [address] [place] [address] Performed By: #### 5 7021-8 ####[facility]ORATORYCLIA [id number] [address] IMMATURE GRAN ABS 0.07 k/uL Normal <0.10 [facility] Comment on above: Order Comment: Speci men Type: BLOOD SPECIMENOrdering Facility: [facility] Address: [address] [place] [address] Performed By: #### 5 7021-8 ####[facility]ORATORYCLIA [id number] [address] Lymphocytes (Bld) [#/Vol] 1.99 10*3/uL Normal 1.00-4.00 [facility] Comment on above: Order Comment: Speci men Type: BLOOD SPECIMENOrdering Facility: [facility] Address: [address] [place] [address] Performed By: #### 5 7021-8 ####[facility]ORATORYCLIA [id number] [address] Lymphocytes/100 WBC (Bld) 13.4 % Normal [facility] Comment on above: Order Comment: Speci men Type: BLOOD SPECIMENOrdering Facility: [facility] Address: [address] [place] [address] Performed By: #### 5 7021-8 ####[facility]ORATORYCLIA [id number] [address] MCH (RBC) [Entitic mass] 27.2 pg Normal 26.0-34.0 [facility] Comment on above: Order Comment: Speci men Type: BLOOD SPECIMENOrdering Facility: [facility] Address: [address] [place] [address] Performed By: #### 5 7021-8 ####[facility]ORATORYCLIA [id number] [address] [place] MCHC (RBC) [Mass/Vol] 29.3 g/dL Low 30.5-36.0 [facility] Comment on above: Order Comment: Speci men Type: BLOOD SPECIMENOrdering Facility: [facility] Address: [address] [place] [address] Performed By: #### 5 7021-8 ####[facility]ORATORYCLIA [id number] [address] [place] MCV (RBC) [Entitic vol] 92.7 fL Normal 80.0-100.0 [facility] Comment on above: Order Comment: Speci men Type: BLOOD SPECIMENOrdering Facility: [facility] Address: [address] [place] [address] Performed By: #### 5 7021-8 ####[facility]ORATORYCLIA [id number] [address] [place] Monocytes (Bld) [#/Vol] 1.10 10*3/uL High <0.87 [facility] Comment on above: Order Comment: Speci men Type: BLOOD SPECIMENOrdering Facility: [facility] Address: [address] [place] [address] Performed By: #### 5 7021-8 ####[facility]ORATORYCLIA [id number] [address] [place] [facility] Monocytes/100 WBC (Bld) 7.4 % Normal [facility] Comment on above: Order Comment: Speci men Type: BLOOD SPECIMENOrdering Facility: [facility] Address: [address] [place] [address] Performed By: #### 5 7021-8 ####[facility]ORATORYCLIA [id number] [place] [address] [place] Neutrophils (Bld) [#/Vol] 11.61 10*3/uL High 1.45-7.50 [facility] Comment on above: Order Comment: Speci men Type: BLOOD SPECIMENOrdering Facility: [facility] Address: [address] [place] [address] Performed By: #### 5 7021-8 ####[facility]ORATORYCLIA [id number] [address] Neutrophils/100 WBC (Bld) 78.0 % Normal [facility] Comment on above: Order Comment: Speci men Type: BLOOD SPECIMENOrdering Facility: [facility] Address: [address] [place] [address] Performed By: #### 5 7021-8 ####[facility]ORATORYCLIA [id number] [address] [place] Nucleated RBC (Bld) [#/Vol] 10*3/uL Normal <0.01 [facility] Comment on above: Order Comment: Speci men Type: BLOOD SPECIMENOrdering Facility: [facility] Address: [address] [place] [address] Performed By: #### 5 7021-8 ####[facility]ORATORYCLIA [id number] [address] Nucleated RBC/100 WBC (Bld) [Ratio] 0.0 /100 WBC Normal [facility] Comment on above: Order Comment: Speci men Type: BLOOD SPECIMENOrdering Facility: [facility] Address: [address] [place] [address] Performed By: #### 5 7021-8 ####[facility]ORATORYCLIA [id number] [place] [address] [place] Platelet mean volume (Bld) [Entitic vol] 10.4 fL Normal 9.0-12.7 [facility] Comment on above: Order Comment: Speci men Type: BLOOD SPECIMENOrdering Facility: [facility] Address: [address] [place] [address] Performed By: #### 5 7021-8 ####[facility] LABORATORYCLIA [id number] [address] OF [facility] Platelets (Bld) [#/Vol] 396 10*3/uL Normal 150-400 [facility] Comment on above: Order Comment: Speci men Type: BLOOD SPECIMENOrdering Facility: [facility] Address: [address] [place] [address] Performed By: #### 5 7021-8 ####[facility]ORATORYCLIA [id number] [address] OF [facility] RBC (Bld) [#/Vol] 3.57 10*6/uL Low 4.20-6.00 [facility] Comment on above: Order Comment: Speci men Type: BLOOD SPECIMENOrdering Facility: [facility] Address: [address] [place] [address] Performed By: #### 5 7021-8 ####[facility]ORATORYCLIA [id number] [address] OF [facility] WBC (Bld) [#/Vol] 14.87 10*3/uL High 3.70-11.00 [facility] Comment on above: Order Comment: Speci men Type: BLOOD SPECIMENOrdering Facility: [facility] Address: [address] [place] [address] Performed By: #### 5 7021-8 ####[facility]ORATORYCLIA [id number] [address] Gas and Carbon monoxide pane l (BldV)on 07-21-2021 Base excess Calc (BldV) [Moles/Vol] 7 mmol/L High 0-2 [facility] Comment on above: Order Comment: Speci men Type: VENOUS BLOOD SPECIMENOrdering Facility: [facility] Address: [address] [place] [address] Performed By: #### 2 4344-4 ####[facility]ORATORYCLIA [id number] [address] Body temperature 98.6 [degF] Normal [facility] Comment on above: Order Comment: Speci men Type: VENOUS BLOOD SPECIMENOrdering Facility: [facility] Address: [address] [place] [address] Performed By: #### 2 4344-4 ####[facility]ORATORYCLIA [id number] [address] [place] CALCIUM IONIZED, PH CORRECTED 1.21 mmol/L Normal 1.08-1.30 [facility] Comment on above: Order Comment: Speci men Type: VENOUS BLOOD SPECIMENOrdering Facility: [facility] Address: [address] [place] [address] Performed By: #### 2 4344-4 ####[facility]ORATORYCLIA [id number] [address] OF [facility] Calcium.ionized (BldV) [Mass/Vol] 1.23 mmol/L Normal 1.08-1.30 [facility] Comment on above: Order Comment: Speci men Type: VENOUS BLOOD SPECIMENOrdering Facility: [facility] Address: [address] [place] [address] Performed By: #### 2 4344-4 ####[facility]ORATORYCLIA [id number] [address] [place] Carboxyhemoglobin (BldV) [Mass fraction] 2.3 % High 0.0-2.0 [facility] Comment on above: Order Comment: Speci men Type: VENOUS BLOOD SPECIMENOrdering Facility: [facility] Address: [address] [place] [address] Result Comment: Carb oxyhemoglobin Reference Range for Smokers: 2.0-8.0% Performed By: #### 2 4344-4 ####[facility]ORATORYCLIA [id number] [address] [place] CO2 (BldV) [Partial pressure] 58 mm[Hg] High 42-55 [facility] Comment on above: Order Comment: Speci men Type: VENOUS BLOOD SPECIMENOrdering Facility: [facility] Address: [address] [place] [address] Performed By: #### 2 4344-4 ####[facility]ORATORYCLIA [id number] [place] [address] [place] CO2 [Moles/Vol] 31 mmol/L High 25-29 [facility] Comment on above: Order Comment: Speci men Type: VENOUS BLOOD SPECIMENOrdering Facility: [facility] Address: [address] [place] [address] Performed By: #### 2 4344-4 ####[facility]ORATORYCLIA [id number] [place] [address] [place] Glucose [Mass/Vol] 146 mg/dL High 60-105 [facility] Comment on above: Order Comment: Speci men Type: VENOUS BLOOD SPECIMENOrdering Facility: [facility] Address: [address] [place] [address] Performed By: #### 2 4344-4 ####[facility]ORATORYCLIA [id number] [place] [address] [place] HCO3 (Bld) [Moles/Vol] 33 mmol/L High 24-28 [facility] Comment on above: Order Comment: Speci men Type: VENOUS BLOOD SPECIMENOrdering Facility: [facility] Address: [address] [place] [address] Performed By: #### 2 4344-4 ####[facility] LABORATORYCLIA [id number] [place] [address] [place] Hematocrit (Bld) [Volume fraction] 30.1 % Low 39.0-51.0 [facility] Comment on above: Order Comment: Speci men Type: VENOUS BLOOD SPECIMENOrdering Facility: [facility] Address: [address] [place] [address] Performed By: #### 2 4344-4 ####[facility] LABORATORYCLIA [id number] [place] [address] [place] Hemoglobin (Bld) [Mass/Vol] 9.7 g/dL Low 13.0-17.0 [facility] Comment on above: Order Comment: Speci men Type: VENOUS BLOOD SPECIMENOrdering Facility: [facility] Address: [address] [address] Performed By: #### 2 4344-4 ####[facility] LABORATORYCLIA [id number] [address] [place] Methemoglobin (Bld) [Mass fraction] % Normal 0.0-1.5 [facility] Comment on above: Order Comment: Speci men Type: VENOUS BLOOD SPECIMENOrdering Facility: [facility] Address: [address] [address] Performed By: #### 2 4344-4 ####[facility]ORATORYCLIA [id number] [address] O2 THERAPY NC = Nasal Cannula Normal [facility] Comment on above: Order Comment: Speci men Type: VENOUS BLOOD SPECIMENOrdering Facility: [facility] Address: [address] [address] Performed By: #### 2 4344-4 ####[facility] LABORATORYCLIA [id number] [address] [place] Oxygen (BldV) [Partial pressure] 64 mm[Hg] High 35-45 [facility] Comment on above: Order Comment: Speci men Type: VENOUS BLOOD SPECIMENOrdering Facility: [facility] Address: [address] [address] Performed By: #### 2 4344-4 ####[facility]ORATORYCLIA [id number] [address] [place] Oxygen saturation in Blood 90 % High 60-85 [facility] Comment on above: Order Comment: Speci men Type: VENOUS BLOOD SPECIMENOrdering Facility: [facility] Address: [address] [address] Performed By: #### 2 4344-4 ####[facility] LABORATORYCLIA [id number] [address] [place] Oxyhemoglobin (BldV) [Mass fraction] 87 % High 60-85 [facility] Comment on above: Order Comment: Speci men Type: VENOUS BLOOD SPECIMENOrdering Facility: [facility] Address: [address] [place] [address] Performed By: #### 2 4344-4 ####[facility] LABORATORYCLIA [id number] [place] [address] [place] pH (BldV) 7.38 [pH] Normal 7.32-7.42 [facility] Comment on above: Order Comment: Speci men Type: VENOUS BLOOD SPECIMENOrdering Facility: [facility] Address: [address] [place] [address] Performed By: #### 2 4344-4 ####[facility]ORATORYCLIA [id number] [place] [address] [place] Potassium [Moles/Vol] 3.8 mmol/L Normal 3.5-5.0 [facility] Comment on above: Order Comment: Speci men Type: VENOUS BLOOD SPECIMENOrdering Facility: [facility] Address: [address] [place] [address] Performed By: #### 2 4344-4 ####[facility]ORATORYCLIA [id number] [address] [place] Sodium [Moles/Vol] 145 mmol/L High 136-144 [facility] Comment on above: Order Comment: Speci men Type: VENOUS BLOOD SPECIMENOrdering Facility: [facility] Address: [address] [place] [address] Performed By: #### 2 4344-4 ####[facility] LABORATORYCLIA [id number] [place] [address] [place] Base excess Calc (BldV) [Moles/Vol] 8 mmol/L High 0-2 [facility] Comment on above: Order Comment: Speci men Type: VENOUS BLOOD SPECIMENOrdering Facility: [facility] Address: [address] [place] [address] Performed By: #### 2 4344-4 ####[facility] LABORATORYCLIA [id number] [address] Body temperature 100.22 [degF] Normal [facility] Comment on above: Order Comment: Speci men Type: VENOUS BLOOD SPECIMENOrdering Facility: [facility] Address: [address] [place] [address] Performed By: #### 2 4344-4 ####[facility] LABORATORYCLIA [id number] [address] OF [facility] CALCIUM IONIZED, PH CORRECTED 1.25 mmol/L Normal 1.08-1.30 [facility] Comment on above: Order Comment: Speci men Type: VENOUS BLOOD SPECIMENOrdering Facility: [facility] Address: [address] [place] [address] Performed By: #### 2 4344-4 ####[facility]ORATORYCLIA [id number] [address] [place] [facility] Calcium.ionized (BldV) [Mass/Vol] 1.24 mmol/L Normal 1.08-1.30 [facility] Comment on above: Order Comment: Speci men Type: VENOUS BLOOD SPECIMENOrdering Facility: [facility] Address: [address] [place] [address] Performed By: #### 2 4344-4 ####[facility]ORATORYCLIA [id number] [address] [place] Carboxyhemoglobin (BldV) [Mass fraction] 2.5 % High 0.0-2.0 [facility] Comment on above: Order Comment: Speci men Type: VENOUS BLOOD SPECIMENOrdering Facility: [facility] Address: [address] [place] [address] Result Comment: Carb oxyhemoglobin Reference Range for Smokers: 2.0-8.0% Performed By: #### 2 4344-4 ####[facility]ORATORYCLIA [id number] [address] [place] CO2 (BldV) [Partial pressure] 53 mm[Hg] Normal 42-55 [facility] Comment on above: Order Comment: Speci men Type: VENOUS BLOOD SPECIMENOrdering Facility: [facility] Address: [address] [place] [address] Performed By: #### 2 4344-4 ####[facility]ATORYCLIA [id number] [address] [place] CO2 [Moles/Vol] 31 mmol/L High 25-29 [facility] Comment on above: Order Comment: Speci men Type: VENOUS BLOOD SPECIMENOrdering Facility: [facility] Address: [address] [place] [address] Performed By: #### 2 4344-4 ####[facility]ORATORYCLIA [id number] [address] [place] CO2 adjusted to patient's actual temperature (BldV) [Partial pressure] 56 mmHg High 42-55 [facility] Comment on above: Order Comment: Speci men Type: VENOUS BLOOD SPECIMENOrdering Facility: [facility] Address: [address] [place] [address] Performed By: #### 2 4344-4 ####[facility]ORATORYCLIA [id number] [place] [address] [place] Glucose [Mass/Vol] 131 mg/dL High 60-105 [facility] Comment on above: Order Comment: Speci men Type: VENOUS BLOOD SPECIMENOrdering Facility: [facility] Address: [address] [place] [address] Performed By: #### 2 4344-4 ####[facility]ATORYCLIA [id number] [place] [address] [place] HCO3 (Bld) [Moles/Vol] 33 mmol/L High 24-28 [facility] Comment on above: Order Comment: Speci men Type: VENOUS BLOOD SPECIMENOrdering Facility: [facility] Address: [address] [place] [address] Performed By: #### 2 4344-4 ####[facility]ORATORYCLIA [id number] [place] [address] [place] Hematocrit (Bld) [Volume fraction] 30.8 % Low 39.0-51.0 [facility] Comment on above: Order Comment: Speci men Type: VENOUS BLOOD SPECIMENOrdering Facility: [facility] Address: [address] [address] Performed By: #### 2 4344-4 ####[facility] LABORATORYCLIA [id number] [address] [place] Hemoglobin (Bld) [Mass/Vol] 10.0 g/dL Low 13.0-17.0 [facility] Comment on above: Order Comment: Speci men Type: VENOUS BLOOD SPECIMENOrdering Facility: [facility] Address: [address] [place] [address] Performed By: #### 2 4344-4 ####[facility]ORATORYCLIA [id number] [address] [place] Methemoglobin (Bld) [Mass fraction] % Normal 0.0-1.5 [facility] Comment on above: Order Comment: Speci men Type: VENOUS BLOOD SPECIMENOrdering Facility: [facility] Address: [address] [place] [address] Performed By: #### 2 4344-4 ####[facility]ORATORYCLIA [id number] [address] [place] O2 THERAPY NC = Nasal Cannula Normal [facility] Comment on above: Order Comment: Speci men Type: VENOUS BLOOD SPECIMENOrdering Facility: [facility] Address: [address] [place] [address] Performed By: #### 2 4344-4 ####[facility]ORATORYCLIA [id number] [address] [place] Oxygen (BldV) [Partial pressure] 58 mm[Hg] High 35-45 [facility] Comment on above: Order Comment: Speci men Type: VENOUS BLOOD SPECIMENOrdering Facility: [facility] Address: [address] [address] Performed By: #### 2 4344-4 ####[facility]ORATORYCLIA [id number] [address] [place] Oxygen adjusted to patient's actual temperature (BldV) [Partial pressure] 61 mmHg High 35-45 [facility] Comment on above: Order Comment: Speci men Type: VENOUS BLOOD SPECIMENOrdering Facility: [facility] Address: [address] [place] [address] Performed By: #### 2 4344-4 ####[facility]ORATORYCLIA [id number] [address] [place] Oxygen saturation in Blood 88 % High 60-85 [facility] Comment on above: Order Comment: Speci men Type: VENOUS BLOOD SPECIMENOrdering Facility: [facility] Address: [address] [place] [address] Performed By: #### 2 4344-4 ####[facility]ORATORYCLIA [id number] [address] Oxyhemoglobin (BldV) [Mass fraction] 85 % Normal 60-85 [facility] Comment on above: Order Comment: Speci men Type: VENOUS BLOOD SPECIMENOrdering Facility: [facility] Address: [address] [place] [address] Performed By: #### 2 4344-4 ####[facility]ORATORYCLIA [id number] [address] [place] pH (BldV) 7.41 [pH] Normal 7.32-7.42 [facility] Comment on above: Order Comment: Speci men Type: VENOUS BLOOD SPECIMENOrdering Facility: [facility] Address: [address] [place] [address] Performed By: #### 2 4344-4 ####[facility]ORATORYCLIA [id number] [address] [place] [facility] pH adjusted to patient's actual temperature (BldV) 7.40 Normal 7.32-7.42 [facility] Comment on above: Order Comment: Speci men Type: VENOUS BLOOD SPECIMENOrdering Facility: [facility] Address: [address] [address] Performed By: #### 2 4344-4 ####[facility]ORATORYCLIA [id number] [place] [address] [place] Potassium [Moles/Vol] 4.0 mmol/L Normal 3.5-5.0 [facility] Comment on above: Order Comment: Speci men Type: VENOUS BLOOD SPECIMENOrdering Facility: [facility] Address: [address] [place] [address] Performed By: #### 2 4344-4 ####[facility]ORATORYCLIA [id number] [place] [address] [place] Sodium [Moles/Vol] 146 mmol/L High 136-144 [facility] Comment on above: Order Comment: Speci men Type: VENOUS BLOOD SPECIMENOrdering Facility: [facility] Address: [address] [place] [address] Performed By: #### 2 4344-4 ####[facility]ORATORYCLIA [id number] [place] [address] [place] Magnesium SerPl-mCncon 07-21 Magnesium [Mass/Vol] 2.5 mg/dL High 1.7-2.3 [facility] Comment on above: Order Comment: Speci men Type: BLOOD SPECIMENOrdering Facility: [facility] Address: [address] [place] [address] Performed By: #### 1 9123-9, 2777-1, 30892-3 ####[facility]ORATORYCLIA [id number] [place] [address] [place] NURSING PROGon 07-21-2021 NURSING PROG Normal [facility] Phosphate SerPl-mCncon 07-21 Phosphate [Mass/Vol] 3.7 mg/dL Normal 2.7-4.8 [facility] Comment on above: Order Comment: Speci men Type: BLOOD SPECIMENOrdering Facility: [facility] Address: [address] [place] [address] Performed By: #### 1 9123-9, 2777-1, 60733-0 ####[facility] LABORATORYCLIA [id number] [address] OF [facility] THERAPY NTon 07-21-2021 THERAPY NT Normal [facility] XR CHEST 1V FRONTALon 2021 XR CHEST 1V FRONTAL Normal [facility] aPTT PPPon 07-21-2021 aPTT Coag (PPP) [Time] 53.0 s High 23.0-32.4 [facility] Comment on above: Order Comment: Speci men Type: BLOOD SPECIMENOrdering Facility: [facility] Address: [address] [place] [address] Performed By: #### 1 4979-9 ####[facility]ORATORYCLIA [id number] [address] [place] ALLIED HEALTHon 07-20-2021 ALLIED HEALTH Normal [facility] Basic metabolic 2000 panelon 07-20-2021 Anion gap [Moles/Vol] 8 mmol/L Low 9-18 [facility] Comment on above: Order Comment: Speci men Type: BLOOD SPECIMENOrdering Facility: [facility] Address: [address] [place] [address] Performed By: #### 2 4321-2, , 2776-05 ####[facility]ORATORYCLIA [id number] [place] [address] [place] [facility] Calcium [Mass/Vol] 9.7 mg/dL Normal 8.5-10.2 [facility] Comment on above: Order Comment: Speci men Type: BLOOD SPECIMENOrdering Facility: [facility] Address: [address] [place] [address] Performed By: #### 2 4321-2, , 2777 ####[facility] LABORATORYCLIA [id number] [place] [address] [place] Chloride [Moles/Vol] 104 mmol/L Normal 97-105 [facility] Comment on above: Order Comment: Speci men Type: BLOOD SPECIMENOrdering Facility: [facility] Address: [address] [place] [address] Performed By: #### 2 4321-2, , 2776-05 ####[facility]CL[facility] [id number] [address] [place] OF [facility] CO2 [Moles/Vol] 34 mmol/L High 22-30 [facility] Comment on above: Order Comment: Speci men Type: BLOOD SPECIMENOrdering Facility: [facility] Address: [address] [place] [address] Performed By: #### 2 4321-2, , 2776-05 ####[facility]ITALCLIA [id number] [address] Creatinine [Mass/Vol] 0.76 mg/dL Normal 0.73-1.22 [facility] Comment on above: Order Comment: Speci men Type: BLOOD SPECIMENOrdering Facility: [facility] Address: [address] [place] [address] Performed By: #### 2 4321-2, , 2776-05 ####[facility]OSPITALIA [id number] [address] ESTIMATED GLOMERULAR FILTRATION RATE 97 mL/min/1.73m??? Normal >=60 [facility] Comment on above: Order Comment: Speci men Type: BLOOD SPECIMENOrdering Facility: [facility] Address: [address] [place] [address] Result Comment: Luzmaria mated Glomerular Filtration Rate [...] Performed By: #### 2 4321-2, , 2776-05 ####[facility] LABORATORYCLIA [id number] [place] [address] [place] Glucose [Mass/Vol] 123 mg/dL High 74-99 [facility] Comment on above: Order Comment: Speci men Type: BLOOD SPECIMENOrdering Facility: [facility] Address: [address] [place], [place] [address] Result Comment: The [place] [employer] (ADA) provides guidance for cutoff [...] Standards of Medical Care in Diabetes 2016, [place] [employer]. Diabetes Care. 2016.39(Suppl 1). Performed By: #### 2 4321-2, , 2776-05 ####[facility]ORATORYCLIA [id number] [place] [address] [place] Potassium [Moles/Vol] 4.4 mmol/L Normal 3.7-5.1 [facility] Comment on above: Order Comment: Shira francia Type: BLOOD SPECIMENOrdering Facility: [facility] Address: [address] [place], [place] [address] Performed By: #### 2 4321-2, , 2776-05 ####[facility] LABORATORYCLIA [id number] [place] [address] [place] Sodium [Moles/Vol] 146 mmol/L High 136-144 [facility] Comment on above: Order Comment: Speci men Type: BLOOD SPECIMENOrdering Facility: [facility] Address: [address] [place], [place] [address] Performed By: #### 2 4321-2, , 2776-05 ####[facility] LABORATORYCLIA [id number] [place] [address] [place] Urea nitrogen [Mass/Vol] 38 mg/dL High 9-24 [facility] Comment on above: Order Comment: Speci men Type: BLOOD SPECIMENOrdering Facility: [facility] Address: [address] [place] [address] Performed By: #### 2 4321-2, 33364-8, 2777-1 ####[facility] LABORATORYCLIA [id number] [address] [place] CASE MANAGEMon 07-20-2021 CASE MANAGEM Normal [facility] CBC W Auto Differential pane l (Bld)on 07-20-2021 Basophils (Bld) [#/Vol] 0.05 10*3/uL Normal <0.11 [facility] Comment on above: Order Comment: Speci men Type: BLOOD SPECIMENOrdering Facility: [facility] Address: [address] [place] [address] Performed By: #### 5 7021-8 ####[facility]ORATORYCLIA [id number] [place] [address] [place] Basophils/100 WBC (Bld) 0.5 % Normal [facility] Comment on above: Order Comment: Speci men Type: BLOOD SPECIMENOrdering Facility: [facility] Address: [address] [place] [address] Performed By: #### 5 7021-8 ####[facility]ORATORYCLIA [id number] [address] [place] Differential cell count method Nom (Bld) Auto Normal [facility] Comment on above: Order Comment: Speci men Type: BLOOD SPECIMENOrdering Facility: [facility] Address: [address] [place] [address] Performed By: #### 5 7021-8 ####[facility] LABORATORYCLIA [id number] [place] [address] [place] Eosinophils (Bld) [#/Vol] 0.43 10*3/uL Normal <0.46 [facility] Comment on above: Order Comment: Speci men Type: BLOOD SPECIMENOrdering Facility: [facility] Address: [address] [place] [address] Performed By: #### 5 7021-8 ####[facility] LABORATORYCLIA [id number] [address] Eosinophils/100 WBC (Bld) 4.1 % Normal [facility] Comment on above: Order Comment: Speci men Type: BLOOD SPECIMENOrdering Facility: [facility] Address: [address] [place] [address] Performed By: #### 5 7021-8 ####[facility] LABORATORYCLIA [id number] [address] Erythrocyte distribution width (RBC) [Ratio] 16.7 % High 11.5-15.0 [facility] Comment on above: Order Comment: Speci men Type: BLOOD SPECIMENOrdering Facility: [facility] Address: [address] [place] [address] Performed By: #### 5 7021-8 ####[facility] LABORATORYCLIA [id number] [address] Hematocrit (Bld) [Volume fraction] 33.0 % Low 39.0-51.0 [facility] Comment on above: Order Comment: Speci men Type: BLOOD SPECIMENOrdering Facility: [facility] Address: [address] [place] [address] Performed By: #### 5 7021-8 ####[facility] LABORATORYCLIA [id number] [address] Hemoglobin (Bld) [Mass/Vol] 9.7 g/dL Low 13.0-17.0 [facility] Comment on above: Order Comment: Speci men Type: BLOOD SPECIMENOrdering Facility: [facility] Address: [address] [place] [address] Performed By: #### 5 7021-8 ####[facility] LABORATORYCLIA [id number] [address] IMMATURE GRAN % 0.4 % Normal [facility] Comment on above: Order Comment: Speci men Type: BLOOD SPECIMENOrdering Facility: [facility] Address: [address] [place] [address] Performed By: #### 5 7021-8 ####[facility] LABORATORYCLIA [id number] [address] IMMATURE GRAN ABS 0.04 k/uL Normal <0.10 [facility] Comment on above: Order Comment: Speci men Type: BLOOD SPECIMENOrdering Facility: [facility] Address: [address] [place] [address] Performed By: #### 5 7021-8 ####[facility] LABORATORYCLIA [id number] [address] Lymphocytes (Bld) [#/Vol] 1.99 10*3/uL Normal 1.00-4.00 [facility] Comment on above: Order Comment: Speci men Type: BLOOD SPECIMENOrdering Facility: [facility] Address: [address] [place] [address] Performed By: #### 5 7021-8 ####[facility] LABORATORYCLIA [id number] [address] Lymphocytes/100 WBC (Bld) 18.8 % Normal [facility] Comment on above: Order Comment: Speci men Type: BLOOD SPECIMENOrdering Facility: [facility] Address: [address] [place] [address] Performed By: #### 5 7021-8 ####[facility] LABORATORYCLIA [id number] [address] [place] MCH (RBC) [Entitic mass] 27.8 pg Normal 26.0-34.0 [facility] Comment on above: Order Comment: Speci men Type: BLOOD SPECIMENOrdering Facility: [facility] Address: [address] [place] [address] Performed By: #### 5 7021-8 ####[facility] LABORATORYCLIA [id number] [address] STATES OF [facility] MCHC (RBC) [Mass/Vol] 29.4 g/dL Low 30.5-36.0 [facility] Comment on above: Order Comment: Speci men Type: BLOOD SPECIMENOrdering Facility: [facility] Address: [address] [place] [address] Performed By: #### 5 7021-8 ####[facility] LABORATORYCLIA [id number] [address] MCV (RBC) [Entitic vol] 94.6 fL Normal 80.0-100.0 [facility] Comment on above: Order Comment: Speci men Type: BLOOD SPECIMENOrdering Facility: [facility] Address: [address] [place] [address] Performed By: #### 5 7021-8 ####[facility] LABORATORYCLIA [id number] [address] [place] Monocytes (Bld) [#/Vol] 0.82 10*3/uL Normal <0.87 [facility] Comment on above: Order Comment: Speci men Type: BLOOD SPECIMENOrdering Facility: [facility] Address: [address] [place] [address] Performed By: #### 5 7021-8 ####[facility] LABORATORYCLIA [id number] [address] Monocytes/100 WBC (Bld) 7.8 % Normal [facility] Comment on above: Order Comment: Speci men Type: BLOOD SPECIMENOrdering Facility: [facility] Address: [address] [place] [address] Performed By: #### 5 7021-8 ####[facility] LABORATORYCLIA [id number] [address] [place] Neutrophils (Bld) [#/Vol] 7.23 10*3/uL Normal 1.45-7.50 [facility] Comment on above: Order Comment: Speci men Type: BLOOD SPECIMENOrdering Facility: [facility] Address: [address] [address] Performed By: #### 5 7021-8 ####[facility] LABORATORYCLIA [id number] [address] Neutrophils/100 WBC (Bld) 68.4 % Normal [facility] Comment on above: Order Comment: Speci men Type: BLOOD SPECIMENOrdering Facility: [facility] Address: [address] [place] [address] Performed By: #### 5 7021-8 ####[facility] LABORATORYCLIA [id number] [address] [place] Nucleated RBC (Bld) [#/Vol] 10*3/uL Normal <0.01 [facility] Comment on above: Order Comment: Speci men Type: BLOOD SPECIMENOrdering Facility: [facility] Address: [address] [place] [address] Performed By: #### 5 7021-8 ####[facility] LABORATORYCLIA [id number] [address] [place] Nucleated RBC/100 WBC (Bld) [Ratio] 0.0 /100 WBC Normal [facility] Comment on above: Order Comment: Speci men Type: BLOOD SPECIMENOrdering Facility: [facility] Address: [address] [place] [address] Performed By: #### 5 7021-8 ####[facility] LABORATORYCLIA [id number] [address] [place] Platelet mean volume (Bld) [Entitic vol] 10.5 fL Normal 9.0-12.7 [facility] Comment on above: Order Comment: Speci men Type: BLOOD SPECIMENOrdering Facility: [facility] Address: [address] [place] [address] Performed By: #### 5 7021-8 ####[facility] LABORATORYCLIA [id number] [place] [address] [place] Platelets (Bld) [#/Vol] 400 10*3/uL Normal 150-400 [facility] Comment on above: Order Comment: Speci men Type: BLOOD SPECIMENOrdering Facility: [facility] Address: [address] [place] [address] Performed By: #### 5 7021-8 ####[facility] LABORATORYCLIA [id number] [address] [place] RBC (Bld) [#/Vol] 3.49 10*6/uL Low 4.20-6.00 [facility] Comment on above: Order Comment: Speci men Type: BLOOD SPECIMENOrdering Facility: [facility] Address: [address] [place] [address] Performed By: #### 5 7021-8 ####[facility] LABORATORYCLIA [id number] [address] WBC (Bld) [#/Vol] 10.56 10*3/uL Normal 3.70-11.00 [facility] Comment on above: Order Comment: Speci men Type: BLOOD SPECIMENOrdering Facility: [facility] Address: [address] [place] [address] Performed By: #### 5 7021-8 ####[facility] LABORATORYCLIA [id number] [address] CONSULT PROGon 07-20-2021 CONSULT PROG Normal [facility] CT BRAIN WO IVCONon 07-21-[address] BRAIN WO IVCON Normal [facility] Magnesium SerPl-mCncon 07-20 Magnesium [Mass/Vol] 2.4 mg/dL High 1.7-2.3 [facility] Comment on above: Order Comment: Speci men Type: BLOOD SPECIMENOrdering Facility: [facility] Address: [address] [place] [address] Performed By: #### 2 4321-2, 55081-8, 2777-1 ####[facility]ORATORYCLIA [id number] [address] [place] NUTRITIONon 07-20-2021 NUTRITION Normal [facility] Phosphate SerPl-mCncon 07-20 Phosphate [Mass/Vol] 4.1 mg/dL Normal 2.7-4.8 [facility] Comment on above: Order Comment: Speci men Type: BLOOD SPECIMENOrdering Facility: [facility] Address: [address] [place] [address] Performed By: #### 2 4321-2, 70442-8, 2777-1 ####[facility]ORATORYCLIA [id number] [place] [address] [place] aPTT PPPon 07-20-2021 aPTT Coag (PPP) [Time] 53.6 s High 23.0-32.4 [facility] Comment on above: Order Comment: Speci men Type: BLOOD SPECIMENOrdering Facility: [facility] Address: [address] [place] [address] Performed By: #### 1 4979-9 ####[facility]ORATORYCLIA [id number] [place] [address] [place] Bacteria CSF Culton 07-20-19 22 Bacteria identified Cx Nom (CSF) CULTURE, CSF: No growth 14 days GRAM STAIN: No organisms seen No Polymorphonuclear Leukocytes Rare Mononuclear cells Gram stain performed on cytospun specimen. Normal [facility] Comment on above: Performed By: #### 6 06-4 ####[facility]ORATORYCLIA [id number] [place] [address] [place] CONSULT PROGon 07-19-2021 CONSULT PROG Normal [facility] CSF MANUAL DIFFon 07-19-2021 DIF TTL, CSF 100 cells counted Normal [facility] Comment on above: Order Comment: Speci men Type: CEREBROSPINAL FLUIDOrdering Facility: [facility] Address: [address] [place] [address] Performed By: #### L [id number], 79327-0, [id number] ####[facility]ORATORYCLIA [id number] [place] [address] [place] EOSIN%, CSF 1 % Normal [facility] Comment on above: Order Comment: Speci men Type: CEREBROSPINAL FLUIDOrdering Facility: [facility] Address: [address] [address] Performed By: #### L [id number], 18980-7, [id number] ####[facility]ATORYCLIA [id number] [place] [address] [place] LYMPH%, CSF 67 % Normal 50-90 [facility] Comment on above: Order Comment: Speci men Type: CEREBROSPINAL FLUIDOrdering Facility: [facility] Address: [address] [place] [address] Performed By: #### L [id number], 95742-9, [id number] ####[facility]ORATORYCLIA [id number] [address] [place] MACRO%, CSF 1 % High <1 [facility] Comment on above: Order Comment: Speci men Type: CEREBROSPINAL FLUIDOrdering Facility: [facility] Address: [address] [place] [address] Performed By: #### L [id number], 72511-1, [id number] ####[facility]ORATORYCLIA [id number] [address] [place] MONO%, CSF 18 % Normal 10-50 [facility] Comment on above: Order Comment: Speci men Type: CEREBROSPINAL FLUIDOrdering Facility: [facility] Address: [address] [address] Performed By: #### L [id number], 87284-4, [id number] ####[facility]ATORYCLIA [id number] [address] [place] NEUT%, CSF 11 % High 0-3 [facility] Comment on above: Order Comment: Speci men Type: CEREBROSPINAL FLUIDOrdering Facility: [facility] Address: [facility] [place] [address] Performed By: #### L [id number], 06775-4, [id number] ####[facility]ORATORYCLIA [id number] [address] [place] OTHER CL%, CSF 2 % Normal [facility] Comment on above: Order Comment: Speci men Type: CEREBROSPINAL FLUIDOrdering Facility: [facility] Address: [address] [place] [address] Result Comment: Path review to follow. Performed By: #### L [id number], 73840-9, [id number] ####[facility]ORATORYCLIA [id number] [address] [place] CSF PATHOLOGIST INTERP (LAB REFLEX ORDER-NO BILL)on 07-19-2021 CSF STAFF REVIEW Normal [facility] Comment on above: Order Comment: Speci men Type: CEREBROSPINAL FLUIDOrdering Facility: [facility] Address: [address] [place] [address] Performed By: #### L [id number], 56033-4, [id number] ####[facility]ORATORYCLIA [id number] [address] Pathologist name Reviewed by Wing Cummings MD [facility] Comment on above: Order Comment: Speci men Type: CEREBROSPINAL FLUIDOrdering Facility: [facility] Address: [address] [place] [address] Performed By: #### L [id number], 20873-4, [id number] ####[facility]ORATORYCLIA [id number] [address] Cell count panel (CSF)on Clarity (CSF) Clear Normal Clear [facility] Comment on above: Order Comment: Speci men Type: CEREBROSPINAL FLUIDOrdering Facility: [facility] Address: [address] [place] [address] Performed By: #### L [id number], 50094-4, [id number] ####[facility]ORATORYCLIA [id number] [address] Clarity (Unsp spec) Not Indicated Normal Clear [facility] Comment on above: Order Comment: Speci men Type: CEREBROSPINAL FLUIDOrdering Facility: [facility] Address: [address] [address] Performed By: #### L [id number], 14235-6, [id number] ####[facility]ATORYCLIA [id number] [address] Color (CSF) Colorless Normal Colorless [facility] Comment on above: Order Comment: Speci men Type: CEREBROSPINAL FLUIDOrdering Facility: [facility] Address: [address] [place] [address] Performed By: #### L [id number], 53910-8, [id number] ####[facility]ATORYCLIA [id number] [address] OF [facility] Color (Spun CSF) Not Indicated Normal Colorless [facility] Comment on above: Order Comment: Speci men Type: CEREBROSPINAL FLUIDOrdering Facility: [facility] Address: [address] [place] [address] Performed By: #### L [id number], 95126-4, [id number] ####[facility]ORATORYCLIA [id number] [address] CSF TUBE NUMBER Sterile Container Normal [facility] Comment on above: Order Comment: Speci men Type: CEREBROSPINAL FLUIDOrdering Facility: [facility] Address: [address] [place] [address] Performed By: #### L [id number], 06962-5, [id number] ####[facility]ATORYCLIA [id number] [address] STATES OF [facility] RBC Manual cnt (CSF) [#/Vol] 0 cells/uL Normal 0-5 [facility] Comment on above: Order Comment: Speci men Type: CEREBROSPINAL FLUIDOrdering Facility: [facility] Address: [address] [place] [address] Performed By: #### L [id number], 92564-0, [id number] ####[facility]ATORYCLIA [id number] [address] OF [facility] WBC Manual cnt (CSF) [#/Vol] 2 cells/uL Normal 0-5 [facility] Comment on above: Order Comment: Speci men Type: CEREBROSPINAL FLUIDOrdering Facility: [facility] Address: [address] [place] [address] Performed By: #### L [id number], 25491-2, [id number] ####[facility]ORATORYCLIA [id number] [address] [place] Glucose CSF-[facility] Glucose (CSF) [Mass/Vol] 69 mg/dL Normal 40-70 [facility] Comment on above: Order Comment: Speci men Type: CEREBROSPINAL FLUIDOrdering Facility: [facility] Address: [address] [place] [address] Result Comment: Lumb ar CSF glucose values of healthy patients are approximately 60% of the plasma values and must always be compared with a concurrently measured plasma value for adequate clinical interpretation.References: 1. Glucose HK (GLUC3) [package insert V 12.0 Finnish]. [employer], [place], [place]. September 2015. 2. Michelle Moore, Loki HGarfield (2015). Chapter 7: Glucose and Lactate. F. Irina rose al.(eds.), Cerebrospinal Fluid in Clinical Neurology. Hickman: [employer]. Performed By: #### 2 342-4, 2880-3 ####[facility]ORATORYCLIA [id number] [address] [place] NURSING PROGon 07-19-2021 NURSING PROG Normal [facility] NURSING PROG Normal [facility] Prot CSF-ncon 07-19-2021 Protein (CSF) [Mass/Vol] 51 mg/dL High 15-45 [facility] Comment on above: Order Comment: Speci men Type: CEREBROSPINAL FLUIDOrdering Facility: [facility] Address: [address] [place] [address] Performed By: #### 2 342-4, 2880-3 ####[facility]ORATORYCLIA [id number] [address] [place] THERAPY NTon 07-19-2021 THERAPY NT Normal [facility] Urinalysis complete panel (U )on 07-19-2021 Bilirubin Ql (U) Negative Normal Negative [facility] Comment on above: Order Comment: Speci men Type: URINE SPECIMENOrdering Facility: [facility] Address: [address] [place] [address] Performed By: #### 2 4356-8 ####[facility]ORATORYCLIA [id number] [address] Clarity (Unsp spec) Clear Normal Clear [facility] Comment on above: Order Comment: Speci men Type: URINE SPECIMENOrdering Facility: [facility] Address: [address] [place] [address] Performed By: #### 2 4356-8 ####[facility]ORATORYCLIA [id number] [address] Color (U) Colorless Normal yellow [facility] Comment on above: Order Comment: Speci men Type: URINE SPECIMENOrdering Facility: [facility] Address: [address] [place] [address] Performed By: #### 2 4356-8 ####[facility]ORATORYCLIA [id number] [address] Glucose Test strip (U) [Mass/Vol] Negative Normal Negative [facility] Comment on above: Order Comment: Speci men Type: URINE SPECIMENOrdering Facility: [facility] Address: [address] [place] [address] Performed By: #### 2 4356-8 ####[facility]ORATORYCLIA [id number] [address] Hemoglobin Ql (U) Trace Abnormal Negative [facility] Comment on above: Order Comment: Speci men Type: URINE SPECIMENOrdering Facility: [facility] Address: [address] [place] [address] Performed By: #### 2 4356-8 ####[facility]ORATORYCLIA [id number] [address] [place] Hyaline casts (Urine sed) [#/Area] 1-3 /LPF Abnormal 0 /LPF [facility] Comment on above: Order Comment: Speci men Type: URINE SPECIMENOrdering Facility: [facility] Address: [address] [place] [address] Performed By: #### 2 4356-8 ####[facility]ORATORYCLIA [id number] [address] Ketones Ql (U) Negative Normal Negative [facility] Comment on above: Order Comment: Speci men Type: URINE SPECIMENOrdering Facility: [facility] Address: [address] [place] [address] Performed By: #### 2 4356-8 ####[facility]ATORYCLIA [id number] [address] Leukocyte esterase Test strip Ql (U) Negative Normal Negative [facility] Comment on above: Order Comment: Speci men Type: URINE SPECIMENOrdering Facility: [facility] Address: [address] [place] [address] Performed By: #### 2 4356-8 ####[facility]ORATORYCLIA [id number] [address] STATES [facility] Nitrite Ql (U) Negative Normal Negative [facility] Comment on above: Order Comment: Speci men Type: URINE SPECIMENOrdering Facility: [facility] Address: [address] [place] [address] Performed By: #### 2 4356-8 ####[facility] LABORATORYCLIA [id number] [address] [place] pH (U) 7.0 [pH] Normal 5.0-8.0 [facility] Comment on above: Order Comment: Speci men Type: URINE SPECIMENOrdering Facility: [facility] Address: [address] [place] [address] Performed By: #### 2 4356-8 ####[facility]ORATORYCLIA [id number] [address] [place] Protein (U) [Mass/Vol] Negative Normal Negative [facility] Comment on above: Order Comment: Speci men Type: URINE SPECIMENOrdering Facility: [facility] Address: [address] [place] [address] Performed By: #### 2 4356-8 ####[facility]ORATORYCLIA [id number] [address] [place] RBC LM.HPF (Urine sed) [#/Area] 6-10 /HPF Abnormal 0-3 /HPF [facility] Comment on above: Order Comment: Speci men Type: URINE SPECIMENOrdering Facility: [facility] Address: [address] [place] [address] Performed By: #### 2 4356-8 ####[facility]ORATORYCLIA [id number] [address] Specific gravity (U) [Rel density] 1.008 Normal 1.005-1.030 [facility] Comment on above: Order Comment: Speci men Type: URINE SPECIMENOrdering Facility: [facility] Address: [address] [place] [address] Performed By: #### 2 4356-8 ####[facility]ORATORYCLIA [id number] [address] Urobilinogen Ql (U) Normal Normal Negative [facility] Comment on above: Order Comment: Speci men Type: URINE SPECIMENOrdering Facility: [facility] Address: [address] [place] [address] Performed By: #### 2 4356-8 ####[facility]ORATORYCLIA [id number] [address] [place] WBC LM.HPF (Urine sed) [#/Area] 0-5 /HPF Normal 0-5 /HPF [facility] Comment on above: Order Comment: Speci men Type: URINE SPECIMENOrdering Facility: [facility] Address: [address] [place] [address] Performed By: #### 2 4356-8 ####[facility]ORATORYCLIA [id number] [address] STATES OF [facility] Vancomycin random [Mass/Vol] on 07-19-2021 Vancomycin [Mass/Vol] 13.9 ug/mL Normal 10.0-20.0 [facility] Comment on above: Order Comment: Speci men Type: BLOOD SPECIMENOrdering Facility: [facility] Address: [address] [place] [address] Result Comment: Refe rence ranges and high/low indicator flags are provided as general guidelines only. The treating physician must determine appropriate target levels/dosing based on the specific clinical situation. Performed By: #### 4 091-5 ####[facility]ORATORYCLIA [id number] [address] STATES OF [facility] aPTT PPPon 07-19-2021 aPTT Coag (PPP) [Time] 53.9 s High 23.0-32.4 [facility] Comment on above: Order Comment: Speci men Type: BLOOD SPECIMENOrdering Facility: [facility] Address: [address] [place] [address] Performed By: #### 1 4979-9 ####[facility] [id number] [place] [address] [place] Basic metabolic 2000 panelon 07-18-2021 Anion gap [Moles/Vol] 6 mmol/L Low 9-18 [facility] Comment on above: Order Comment: Speci men Type: BLOOD SPECIMENOrdering Facility: [facility] Address: [address] [place] [address] Performed By: #### 2 4321-2, 74976-9, 2777-1 ####[facility]ATORYCLIA [id number] [address] [place] Calcium [Mass/Vol] 9.4 mg/dL Normal 8.5-10.2 [facility] Comment on above: Order Comment: Speci men Type: BLOOD SPECIMENOrdering Facility: [facility] Address: [address] [place] [address] Performed By: #### 2 4321-2, , 2776-05 ####[facility]ORATORYCLIA [id number] [place] [id number] [place] Chloride [Moles/Vol] 103 mmol/L Normal 97-105 [facility] Comment on above: Order Comment: Speci men Type: BLOOD SPECIMENOrdering Facility: [facility] Address: [address] [place] [address] Performed By: #### 2 4321-2, , 2776-05 ####[facility]ORATORYCLIA [id number] [place] [address] [place] CO2 [Moles/Vol] 34 mmol/L High 22-30 [facility] Comment on above: Order Comment: Speci men Type: BLOOD SPECIMENOrdering Facility: [facility] Address: [address] [place] [address] Performed By: #### 2 4321-2, , 2776-05 ####[facility]ATORYCLIA [id number] [address] STATES OF [facility] Creatinine [Mass/Vol] 0.75 mg/dL Normal 0.73-1.22 [facility] Comment on above: Order Comment: Speci men Type: BLOOD SPECIMENOrdering Facility: [facility] Address: [address] [place] [address] Performed By: #### 2 4321-2, , 2776-05 ####[facility]ORATORYCLIA [id number] [address] ESTIMATED GLOMERULAR FILTRATION RATE 98 mL/min/1.73m??? Normal >=60 [facility] Comment on above: Order Comment: Speci men Type: BLOOD SPECIMENOrdering Facility: [facility] Address: [address] [place] [address] Result Comment: Luzmaria mated Glomerular Filtration Rate [...] Performed By: #### 2 4321-2, , 2776-05 ####[facility]ATORYCLIA [id number] [place] [address] [place] Glucose [Mass/Vol] 125 mg/dL High 74-99 [facility] Comment on above: Order Comment: Shira feldman Type: BLOOD SPECIMENOrdering Facility: [facility] Address: [address] [place] [address] Result Comment: The [place] Diabetes Association (ADA) provides guidance for cutoff [...] Standards of Medical Care in Diabetes 2016, [place] [employer]. Diabetes Care. 2016.39(Suppl 1). Performed By: #### 2 4321-2, , 2776-05 ####[facility]ORATORYCLIA [id number] [place] [address] [place] Potassium [Moles/Vol] 4.4 mmol/L Normal 3.7-5.1 [facility] Comment on above: Order Comment: Shira feldman Type: BLOOD SPECIMENOrdering Facility: [facility] Address: [address] [place] [address] Performed By: #### 2 4321-2, , 2776-05 ####[facility]ATORYCLIA [id number] [place] [address] [place] Sodium [Moles/Vol] 143 mmol/L Normal 136-144 [facility] Comment on above: Order Comment: Speci men Type: BLOOD SPECIMENOrdering Facility: [facility] Address: [address] [place] [address] Performed By: #### 2 4321-2, , 2776-05 ####[facility]ATORYCLIA [id number] [address] [place] [facility] Urea nitrogen [Mass/Vol] 33 mg/dL High 9-24 [facility] Comment on above: Order Comment: Speci men Type: BLOOD SPECIMENOrdering Facility: [facility] Address: [address] [place] [address] Performed By: #### 2 4321-2, , 2776-05 ####[facility]ATORYCLIA [id number] [address] [place] CASE MANAGEMon 07-18-2021 CASE MANAGEM Normal [facility] CBC W Auto Differential pane l (Bld)on 07-18-2021 Basophils (Bld) [#/Vol] 0.05 10*3/uL Normal <0.11 [facility] Comment on above: Order Comment: Speci men Type: BLOOD SPECIMENOrdering Facility: [facility] Address: [address] [place] [address] Performed By: #### 5 7021-8 ####[facility]ORATORYCLIA [id number] [address] [place] [facility] Basophils/100 WBC (Bld) 0.5 % Normal [facility] Comment on above: Order Comment: Speci men Type: BLOOD SPECIMENOrdering Facility: [facility] Address: [address] [place] [address] Performed By: #### 5 7021-8 ####[facility]ORATORYCLIA [id number] [address] STATES OF [facility] Differential cell count method Nom (Bld) Auto Normal [facility] Comment on above: Order Comment: Speci men Type: BLOOD SPECIMENOrdering Facility: [facility] Address: [address] [place] [address] Performed By: #### 5 7021-8 ####[facility]ATORYCLIA [id number] [address] [place] Eosinophils (Bld) [#/Vol] 0.44 10*3/uL Normal <0.46 [facility] Comment on above: Order Comment: Speci men Type: BLOOD SPECIMENOrdering Facility: [facility] Address: [address] [place] [address] Performed By: #### 5 7021-8 ####[facility]ORYCLIA [id number] [address] Eosinophils/100 WBC (Bld) 4.3 % Normal [facility] Comment on above: Order Comment: Speci men Type: BLOOD SPECIMENOrdering Facility: [facility] Address: [address] [place] [address] Performed By: #### 5 7021-8 ####[facility]ATORYCLIA [id number] [address] Erythrocyte distribution width (RBC) [Ratio] 16.6 % High 11.5-15.0 [facility] Comment on above: Order Comment: Speci men Type: BLOOD SPECIMENOrdering Facility: [facility] Address: [address] [place] [address] Performed By: #### 5 7021-8 ####[facility]ORATORYCLIA [id number] [address] Hematocrit (Bld) [Volume fraction] 32.2 % Low 39.0-51.0 [facility] Comment on above: Order Comment: Speci men Type: BLOOD SPECIMENOrdering Facility: [facility] Address: [address] [place] [address] Performed By: #### 5 7021-8 ####[facility]ORYCLIA [id number] [address] [place] Hemoglobin (Bld) [Mass/Vol] 9.5 g/dL Low 13.0-17.0 [facility] Comment on above: Order Comment: Speci men Type: BLOOD SPECIMENOrdering Facility: [facility] Address: [address] [place] [address] Performed By: #### 5 7021-8 ####[facility]ATORYCLIA [id number] [address] IMMATURE GRAN % 0.4 % Normal [facility] Comment on above: Order Comment: Speci men Type: BLOOD SPECIMENOrdering Facility: [facility] Address: [address] [place] [address] Performed By: #### 5 7021-8 ####[facility]ORATORYCLIA [id number] [address] IMMATURE GRAN ABS 0.04 k/uL Normal <0.10 [facility] [facility] Comment on above: Order Comment: Speci men Type: BLOOD SPECIMENOrdering Facility: [facility] Address: [address] [place] [address] Performed By: #### 5 7021-8 ####[facility] LABORATORYCLIA [id number] [address] Lymphocytes (Bld) [#/Vol] 1.71 10*3/uL Normal 1.00-4.00 [facility] Comment on above: Order Comment: Speci men Type: BLOOD SPECIMENOrdering Facility: [facility] Address: [address] [place] [address] Performed By: #### 5 7021-8 ####[facility]ORATORYCLIA [id number] [address] Lymphocytes/100 WBC (Bld) 16.9 % Normal [facility] Comment on above: Order Comment: Speci men Type: BLOOD SPECIMENOrdering Facility: [facility] Address: [address] [place] [address] Performed By: #### 5 7021-8 ####[facility] LABORATORYCLIA [id number] [address] MCH (RBC) [Entitic mass] 27.9 pg Normal 26.0-34.0 [facility] Comment on above: Order Comment: Speci men Type: BLOOD SPECIMENOrdering Facility: [facility] Address: [address] [place] [address] Performed By: #### 5 7021-8 ####[facility] LABORATORYCLIA [id number] [address] [place] [facility] MCHC (RBC) [Mass/Vol] 29.5 g/dL Low 30.5-36.0 [facility] Comment on above: Order Comment: Speci men Type: BLOOD SPECIMENOrdering Facility: [facility] Address: [address] [place] [address] Performed By: #### 5 7021-8 ####[facility]ORATORYCLIA [id number] [address] STATES OF [facility] MCV (RBC) [Entitic vol] 94.7 fL Normal 80.0-100.0 [facility] Comment on above: Order Comment: Speci men Type: BLOOD SPECIMENOrdering Facility: [facility] Address: [address] [place] [address] Performed By: #### 5 7021-8 ####[facility]ORATORYCLIA [id number] [address] Monocytes (Bld) [#/Vol] 0.69 10*3/uL Normal <0.87 [facility] Comment on above: Order Comment: Speci men Type: BLOOD SPECIMENOrdering Facility: [facility] Address: [address] [place] [address] Performed By: #### 5 7021-8 ####[facility]ORATORYCLIA [id number] [address] Monocytes/100 WBC (Bld) 6.8 % Normal [facility] Comment on above: Order Comment: Speci men Type: BLOOD SPECIMENOrdering Facility: [facility] Address: [address] [place] [address] Performed By: #### 5 7021-8 ####[facility] LABORATORYCLIA [id number] [place] [address] [place] Neutrophils (Bld) [#/Vol] 7.19 10*3/uL Normal 1.45-7.50 [facility] Comment on above: Order Comment: Speci men Type: BLOOD SPECIMENOrdering Facility: [facility] Address: [address] [place] [address] Performed By: #### 5 7021-8 ####[facility] LABORATORYCLIA [id number] [address] [place] Neutrophils/100 WBC (Bld) 71.1 % Normal [facility] Comment on above: Order Comment: Speci men Type: BLOOD SPECIMENOrdering Facility: [facility] Address: [address] [place] [address] Performed By: #### 5 7021-8 ####[facility] LABORATORYCLIA [id number] [address] [place] Nucleated RBC (Bld) [#/Vol] 10*3/uL Normal <0.01 [facility] Comment on above: Order Comment: Speci men Type: BLOOD SPECIMENOrdering Facility: [facility] Address: [address] [place] [address] Performed By: #### 5 7021-8 ####[facility]ORATORYCLIA [id number] [address] [place] Nucleated RBC/100 WBC (Bld) [Ratio] 0.0 /100 WBC Normal [facility] Comment on above: Order Comment: Speci men Type: BLOOD SPECIMENOrdering Facility: [facility] Address: [address] [place] [address] Performed By: #### 5 7021-8 ####[facility]ORATORYCLIA [id number] [address] [place] Platelet mean volume (Bld) [Entitic vol] 10.3 fL Normal 9.0-12.7 [facility] Comment on above: Order Comment: Speci men Type: BLOOD SPECIMENOrdering Facility: [facility] Address: [address] [place] [address] Performed By: #### 5 7021-8 ####[facility]ORATORYCLIA [id number] [address] Platelets (Bld) [#/Vol] 403 10*3/uL High 150-400 [facility] Comment on above: Order Comment: Speci men Type: BLOOD SPECIMENOrdering Facility: [facility] Address: [address] [place] [address] Performed By: #### 5 7021-8 ####[facility]ORATORYCLIA [id number] [address] [place] RBC (Bld) [#/Vol] 3.40 10*6/uL Low 4.20-6.00 [facility] Comment on above: Order Comment: Speci men Type: BLOOD SPECIMENOrdering Facility: [facility] Address: [address] [place] [address] Performed By: #### 5 7021-8 ####[facility]ORATORYCLIA [id number] [address] OF [facility] WBC (Bld) [#/Vol] 10.12 10*3/uL Normal 3.70-11.00 [facility] Comment on above: Order Comment: Speci men Type: BLOOD SPECIMENOrdering Facility: [facility] Address: [address] [place] [address] Performed By: #### 5 7021-8 ####[facility]ORATORYCLIA [id number] [address] Magnesium SerPl-mCncon 07-18 Magnesium [Mass/Vol] 2.4 mg/dL High 1.7-2.3 [facility] Comment on above: Order Comment: Speci men Type: BLOOD SPECIMENOrdering Facility: [facility] Address: [address] [place] [address] Performed By: #### 2 4321-2, 35095-3, 2777-1 ####[facility]ORATORYCLIA [id number] [address] [place] NURSING PROGon 07-18-2021 NURSING PROG Normal [facility] NURSING PROG Normal [facility] Phosphate SerPl-mCncon 07-18 Phosphate [Mass/Vol] 3.9 mg/dL Normal 2.7-4.8 [facility] Comment on above: Order Comment: Speci men Type: BLOOD SPECIMENOrdering Facility: [facility] Address: [address] [place] [address] Performed By: #### 2 4321-2, 44573-9, 2777-1 ####[facility]ORATORYCLIA [id number] [address] THERAPY NTon 07-18-2021 THERAPY NT Normal [facility] aPTT PPPon 07-18-2021 aPTT Coag (PPP) [Time] 52.3 s High 23.0-32.4 [facility] Comment on above: Order Comment: Speci men Type: BLOOD SPECIMENOrdering Facility: [facility] Address: [address] [place] [address] Performed By: #### 1 4979-9 ####[facility]ORATORYCLIA [id number] [address] STATES OF [facility] CBC W Auto Differential pane l (Bld)on 07-17-2021 Basophils (Bld) [#/Vol] 0.05 10*3/uL Normal <0.11 [facility] Comment on above: Order Comment: Speci men Type: BLOOD SPECIMENOrdering Facility: [facility] Address: [address] [place] [address] Performed By: #### 5 7021-8 ####[facility]ORATORYCLIA [id number] [address] Basophils/100 WBC (Bld) 0.5 % Normal [facility] Comment on above: Order Comment: Speci men Type: BLOOD SPECIMENOrdering Facility: [facility] Address: [address] [address] Performed By: #### 5 7021-8 ####[facility]ORATORYCLIA [id number] [address] Differential cell count method Nom (Bld) Auto Normal [facility] Comment on above: Order Comment: Speci men Type: BLOOD SPECIMENOrdering Facility: [facility] Address: [address] [place] [address] Performed By: #### 5 7021-8 ####[facility]ORATORYCLIA [id number] [address] [place] Eosinophils (Bld) [#/Vol] 0.32 10*3/uL Normal <0.46 [facility] Comment on above: Order Comment: Speci men Type: BLOOD SPECIMENOrdering Facility: [facility] Address: [address] [place] [address] Performed By: #### 5 7021-8 ####[facility]ORATORYCLIA [id number] [address] Eosinophils/100 WBC (Bld) 3.4 % Normal [facility] Comment on above: Order Comment: Speci men Type: BLOOD SPECIMENOrdering Facility: [facility] Address: [address] [place] [address] Performed By: #### 5 7021-8 ####[facility]ORATORYCLIA [id number] [address] [place] Erythrocyte distribution width (RBC) [Ratio] 16.6 % High 11.5-15.0 [facility] Comment on above: Order Comment: Speci men Type: BLOOD SPECIMENOrdering Facility: [facility] Address: [address] [place] [address] Performed By: #### 5 7021-8 ####[facility]ORATORYCLIA [id number] [address] [place] Hematocrit (Bld) [Volume fraction] 30.7 % Low 39.0-51.0 [facility] Comment on above: Order Comment: Speci men Type: BLOOD SPECIMENOrdering Facility: [facility] Address: [address] [place] [address] Performed By: #### 5 7021-8 ####[facility]ORATORYCLIA [id number] [address] [place] Hemoglobin (Bld) [Mass/Vol] 9.0 g/dL Low 13.0-17.0 [facility] Comment on above: Order Comment: Speci men Type: BLOOD SPECIMENOrdering Facility: [facility] Address: [address] [place] [address] Performed By: #### 5 7021-8 ####[facility]ORATORYCLIA [id number] [address] IMMATURE GRAN % 0.6 % Normal [facility] Comment on above: Order Comment: Speci men Type: BLOOD SPECIMENOrdering Facility: [facility] Address: [address] [place] [address] Performed By: #### 5 7021-8 ####[facility]ORATORYCLIA [id number] [address] IMMATURE GRAN ABS 0.06 k/uL Normal <0.10 [facility] Comment on above: Order Comment: Speci men Type: BLOOD SPECIMENOrdering Facility: [facility] Address: [address] [place] [address] Performed By: #### 5 7021-8 ####[facility]ORATORYCLIA [id number] [address] [place] Lymphocytes (Bld) [#/Vol] 1.61 10*3/uL Normal 1.00-4.00 [facility] Comment on above: Order Comment: Speci men Type: BLOOD SPECIMENOrdering Facility: [facility] Address: [address] [place] [address] Performed By: #### 5 7021-8 ####[facility]ORATORYCLIA [id number] [address] Lymphocytes/100 WBC (Bld) 17.3 % Normal [facility] Comment on above: Order Comment: Speci men Type: BLOOD SPECIMENOrdering Facility: [facility] Address: [address] [place] [address] Performed By: #### 5 7021-8 ####[facility]ORATORYCLIA [id number] [address] STATES OF [facility] MCH (RBC) [Entitic mass] 26.9 pg Normal 26.0-34.0 [facility] Comment on above: Order Comment: Speci men Type: BLOOD SPECIMENOrdering Facility: [facility] Address: [address] [place] [address] Performed By: #### 5 7021-8 ####[facility]ORATORYCLIA [id number] [address] [place] MCHC (RBC) [Mass/Vol] 29.3 g/dL Low 30.5-36.0 [facility] Comment on above: Order Comment: Speci men Type: BLOOD SPECIMENOrdering Facility: [facility] Address: [address] [place] [address] Performed By: #### 5 7021-8 ####[facility]ORATORYCLIA [id number] [address] MCV (RBC) [Entitic vol] 91.9 fL Normal 80.0-100.0 [facility] Comment on above: Order Comment: Speci men Type: BLOOD SPECIMENOrdering Facility: [facility] Address: [address] [place] [address] Performed By: #### 5 7021-8 ####[facility]ORATORYCLIA [id number] [address] Monocytes (Bld) [#/Vol] 0.61 10*3/uL Normal <0.87 [facility] Comment on above: Order Comment: Speci men Type: BLOOD SPECIMENOrdering Facility: [facility] Address: [address] [place] [address] Performed By: #### 5 7021-8 ####[facility]ORATORYCLIA [id number] [address] [place] Monocytes/100 WBC (Bld) 6.6 % Normal [facility] Comment on above: Order Comment: Speci men Type: BLOOD SPECIMENOrdering Facility: [facility] Address: [address] [place] [address] Performed By: #### 5 7021-8 ####[facility]ORATORYCLIA [id number] [place] [address] [place] Neutrophils (Bld) [#/Vol] 6.64 10*3/uL Normal 1.45-7.50 [facility] Comment on above: Order Comment: Speci men Type: BLOOD SPECIMENOrdering Facility: [facility] Address: [address] [place] [address] Performed By: #### 5 7021-8 ####[facility]ORATORYCLIA [id number] [address] Neutrophils/100 WBC (Bld) 71.6 % Normal [facility] Comment on above: Order Comment: Speci men Type: BLOOD SPECIMENOrdering Facility: [facility] Address: [address] [place] [address] Performed By: #### 5 7021-8 ####[facility]ORATORYCLIA [id number] [address] [place] Nucleated RBC (Bld) [#/Vol] 10*3/uL Normal <0.01 [facility] Comment on above: Order Comment: Speci men Type: BLOOD SPECIMENOrdering Facility: [facility] Address: [address] [place] [address] Performed By: #### 5 7021-8 ####[facility]ORATORYCLIA [id number] [address] [place] Nucleated RBC/100 WBC (Bld) [Ratio] 0.0 /100 WBC Normal [facility] Comment on above: Order Comment: Speci men Type: BLOOD SPECIMENOrdering Facility: [facility] Address: [address] Performed By: #### 5 7021-8 ####[facility]ORATORYCLIA [id number] [address] [place] [facility] Platelet mean volume (Bld) [Entitic vol] 10.1 fL Normal 9.0-12.7 [facility] Comment on above: Order Comment: Speci men Type: BLOOD SPECIMENOrdering Facility: [facility] Address: [address] [place] [address] Performed By: #### 5 7021-8 ####[facility]ORATORYCLIA [id number] [address] [place] Platelets (Bld) [#/Vol] 387 10*3/uL Normal 150-400 [facility] Comment on above: Order Comment: Speci men Type: BLOOD SPECIMENOrdering Facility: [facility] Address: [address] [place] [address] Performed By: #### 5 7021-8 ####[facility]ORATORYCLIA [id number] [address] [place] RBC (Bld) [#/Vol] 3.34 10*6/uL Low 4.20-6.00 [facility] Comment on above: Order Comment: Speci men Type: BLOOD SPECIMENOrdering Facility: [facility] Address: [address] [place], [place] [address] Performed By: #### 5 7021-8 ####[facility]ORATORYCLIA [id number] [address] [place] WBC (Bld) [#/Vol] 9.29 10*3/uL Normal 3.70-11.00 [facility] Comment on above: Order Comment: Speci men Type: BLOOD SPECIMENOrdering Facility: [facility] Address: [address] [place] [address] Performed By: #### 5 7021-8 ####[facility]ORATORYCLIA [id number] [address] [place] CONSULT PROGon 07-17-2021 CONSULT PROG Normal [facility] Magnesium SerPl-mCncon 07-17 Magnesium [Mass/Vol] 2.3 mg/dL Normal 1.7-2.3 [facility] Comment on above: Order Comment: Speci men Type: BLOOD SPECIMENOrdering Facility: [facility] Address: [address] [place] [address] Performed By: #### 2 777-1, 02208-0 ####[facility]ORATORYCLIA [id number] [address] NURSING PROGon 07-17-2021 NURSING PROG Normal [facility] NURSING PROG Normal [facility] NURSING PROG Normal [facility] Phosphate SerPl-mCncon 07-17 Phosphate [Mass/Vol] 3.6 mg/dL Normal 2.7-4.8 [facility] Comment on above: Order Comment: Speci men Type: BLOOD SPECIMENOrdering Facility: [facility] Address: [address] [place] [address] Performed By: #### 2 777-1, 32464-9 ####[facility]ORATORYCLIA [id number] [address] aPTT PPPon 07-17-2021 aPTT Coag (PPP) [Time] 57.2 s High 23.0-32.4 [facility] Comment on above: Order Comment: Speci men Type: BLOOD SPECIMENOrdering Facility: [facility] Address: [address] [place] [address] Performed By: #### 1 4979-9 ####[facility]ORATORYCLIA [id number] [address] [place] Basic metabolic 2000 panelon 07-16-2021 Anion gap [Moles/Vol] 5 mmol/L Low 9-18 [facility] Comment on above: Order Comment: Speci men Type: BLOOD SPECIMENOrdering Facility: [facility] Address: [address] [place], [place] [address] Performed By: #### 2 777-1, 89896-4, ####[facility]ORATORYCLIA [id number] [place] [address] [place] Calcium [Mass/Vol] 9.1 mg/dL Normal 8.5-10.2 [facility] Comment on above: Order Comment: Speci men Type: BLOOD SPECIMENOrdering Facility: [facility] Address: [address] [place] [address] Performed By: #### 2 777-1, 94801-6, ####[facility]ORATORYCLIA [id number] [place] [address] [place] Chloride [Moles/Vol] 101 mmol/L Normal 97-105 [facility] Comment on above: Order Comment: Speci men Type: BLOOD SPECIMENOrdering Facility: [facility] Address: [address] [place] [address] Performed By: #### 2 777-1, , ####[facility]ORATORYCLIA [id number] [place] [address] [place] CO2 [Moles/Vol] 35 mmol/L High 22-30 [facility] Comment on above: Order Comment: Speci men Type: BLOOD SPECIMENOrdering Facility: [facility] Address: [address] [place] [address] Performed By: #### 2 777-1, , ####[facility]ORATORYCLIA [id number] [place] [address] [place] Creatinine [Mass/Vol] 0.73 mg/dL Normal 0.73-1.22 [facility] Comment on above: Order Comment: Speci men Type: BLOOD SPECIMENOrdering Facility: [facility] Address: [address] [place] [address] Performed By: #### 2 777-1, 70059-3, ####[facility]ORATORYCLIA [id number] [place] [address] [place] ESTIMATED GLOMERULAR FILTRATION RATE 98 mL/min/1.73m??? Normal >=60 [facility] Comment on above: Order Comment: Shira feldman Type: BLOOD SPECIMENOrdering Facility: [facility] Address: [address] [place], [place] [address] Result Comment: Luzmaria mated Glomerular Filtration Rate [...] actual GFR. Performed By: #### 2 777-1, 01060-2, ####[facility] LABORATORYCLIA [id number] [place] [id number] [place] Glucose [Mass/Vol] 133 mg/dL High 74-99 [facility] Comment on above: Order Comment: Shira feldman Type: BLOOD SPECIMENOrdering Facility: [facility] Address: [address] [place] [address] Result Comment: The [place] [employer] (ADA) provides guidance for cutoff [...] Standards of Medical Care in Diabetes 2016, [place] [employer]. Diabetes Care. 2016.39(Suppl 1). Performed By: #### 2 777-1, 45767-0, ####[facility]ORATORYCLIA [id number] [place] [address] [place] Potassium [Moles/Vol] 4.2 mmol/L Normal 3.7-5.1 [facility] Comment on above: Order Comment: Speci men Type: BLOOD SPECIMENOrdering Facility: [facility] Address: [address] [place] [address] Performed By: #### 2 777-1, 55345-3, ####[facility]ORATORYCLIA [id number] [place] [address] [place] Sodium [Moles/Vol] 141 mmol/L Normal 136-144 [facility] Comment on above: Order Comment: Speci men Type: BLOOD SPECIMENOrdering Facility: [facility] Address: [address] [place] [address] Performed By: #### 2 777-1, , ####[facility]ORATORYCLIA [id number] [address] [place] Urea nitrogen [Mass/Vol] 21 mg/dL Normal 9-24 [facility] Comment on above: Order Comment: Speci men Type: BLOOD SPECIMENOrdering Facility: [facility] Address: [address] [place] [address] Performed By: #### 2 777-1, , ####[facility]ORATORYCLIA [id number] [address] [place] CBC W Auto Differential pane l (Bld)on 07-16-2021 Basophils (Bld) [#/Vol] 0.06 10*3/uL Normal <0.11 [facility] Comment on above: Order Comment: Speci men Type: BLOOD SPECIMENOrdering Facility: [facility] Address: [address] [place] [address] Performed By: #### 5 7021-8 ####[facility]ORATORYCLIA [id number] [address] [place] Basophils/100 WBC (Bld) 0.7 % Normal [facility] Comment on above: Order Comment: Speci men Type: BLOOD SPECIMENOrdering Facility: [facility] Address: [address] [address] Performed By: #### 5 7021-8 ####[facility]ORATORYCLIA [id number] [address] Differential cell count method Nom (Bld) Auto Normal [facility] Comment on above: Order Comment: Speci men Type: BLOOD SPECIMENOrdering Facility: [facility] Address: [address] [place] [address] Performed By: #### 5 7021-8 ####[facility]ORATORYCLIA [id number] [address] [place] Eosinophils (Bld) [#/Vol] 0.35 10*3/uL Normal <0.46 [facility] Comment on above: Order Comment: Speci men Type: BLOOD SPECIMENOrdering Facility: [facility] Address: [address] [place] [address] Performed By: #### 5 7021-8 ####[facility]ORATORYCLIA [id number] [address] Eosinophils/100 WBC (Bld) 3.9 % Normal [facility] Comment on above: Order Comment: Speci men Type: BLOOD SPECIMENOrdering Facility: [facility] Address: [address] [place] [address] Performed By: #### 5 7021-8 ####[facility]ORATORYCLIA [id number] [address] [place] Erythrocyte distribution width (RBC) [Ratio] 16.5 % High 11.5-15.0 [facility] Comment on above: Order Comment: Speci men Type: BLOOD SPECIMENOrdering Facility: [facility] Address: [address] [place] [address] Performed By: #### 5 7021-8 ####[facility]ORATORYCLIA [id number] [address] [place] Hematocrit (Bld) [Volume fraction] 30.9 % Low 39.0-51.0 [facility] Comment on above: Order Comment: Speci men Type: BLOOD SPECIMENOrdering Facility: [facility] Address: [address] [place] [address] Performed By: #### 5 7021-8 ####[facility]ORATORYCLIA [id number] [address] [place] Hemoglobin (Bld) [Mass/Vol] 9.1 g/dL Low 13.0-17.0 [facility] Comment on above: Order Comment: Speci men Type: BLOOD SPECIMENOrdering Facility: [facility] Address: [address] [place] [address] Performed By: #### 5 7021-8 ####[facility] LABORATORYCLIA [id number] [address] IMMATURE GRAN % 0.4 % Normal [facility] Comment on above: Order Comment: Speci men Type: BLOOD SPECIMENOrdering Facility: [facility] Address: [address] [place] [address] Performed By: #### 5 7021-8 ####[facility] LABORATORYCLIA [id number] [address] IMMATURE GRAN ABS 0.04 k/uL Normal <0.10 [facility] Comment on above: Order Comment: Speci men Type: BLOOD SPECIMENOrdering Facility: [facility] Address: [address] [place] [address] Performed By: #### 5 7021-8 ####[facility] LABORATORYCLIA [id number] [address] [place] Lymphocytes (Bld) [#/Vol] 1.35 10*3/uL Normal 1.00-4.00 [facility] Comment on above: Order Comment: Speci men Type: BLOOD SPECIMENOrdering Facility: [facility] Address: [address] [place] [address] Performed By: #### 5 7021-8 ####[facility] LABORATORYCLIA [id number] [address] Lymphocytes/100 WBC (Bld) 15.0 % Normal [facility] Comment on above: Order Comment: Speci men Type: BLOOD SPECIMENOrdering Facility: [facility] Address: [address] [place] [address] Performed By: #### 5 7021-8 ####[facility] LABORATORYCLIA [id number] [address] STATES OF [facility] MCH (RBC) [Entitic mass] 27.1 pg Normal 26.0-34.0 [facility] Comment on above: Order Comment: Speci men Type: BLOOD SPECIMENOrdering Facility: [facility] Address: [address] [place] [address] Performed By: #### 5 7021-8 ####[facility] LABORATORYCLIA [id number] [address] MCHC (RBC) [Mass/Vol] 29.4 g/dL Low 30.5-36.0 [facility] Comment on above: Order Comment: Speci men Type: BLOOD SPECIMENOrdering Facility: [facility] Address: [address] [place] [address] Performed By: #### 5 7021-8 ####[facility] LABORATORYCLIA [id number] [address] MCV (RBC) [Entitic vol] 92.0 fL Normal 80.0-100.0 [facility] Comment on above: Order Comment: Speci men Type: BLOOD SPECIMENOrdering Facility: [facility] Address: [address] [place] [address] Performed By: #### 5 7021-8 ####[facility] LABORATORYCLIA [id number] [address] Monocytes (Bld) [#/Vol] 0.53 10*3/uL Normal <0.87 [facility] Comment on above: Order Comment: Speci men Type: BLOOD SPECIMENOrdering Facility: [facility] Address: [address] [place] [address] Performed By: #### 5 7021-8 ####[facility]ORATORYCLIA [id number] [address] [place] Monocytes/100 WBC (Bld) 5.9 % Normal [facility] Comment on above: Order Comment: Speci men Type: BLOOD SPECIMENOrdering Facility: [facility] Address: [address] [place] [address] Performed By: #### 5 7021-8 ####[facility]ORATORYCLIA [id number] [address] [place] Neutrophils (Bld) [#/Vol] 6.67 10*3/uL Normal 1.45-7.50 [facility] Comment on above: Order Comment: Speci men Type: BLOOD SPECIMENOrdering Facility: [facility] Address: [address] [place] [address] Performed By: #### 5 7021-8 ####[facility] LABORATORYCLIA [id number] [address] Neutrophils/100 WBC (Bld) 74.1 % Normal [facility] Comment on above: Order Comment: Speci men Type: BLOOD SPECIMENOrdering Facility: [facility] Address: [address] [place] [address] Performed By: #### 5 7021-8 ####[facility] LABORATORYCLIA [id number] [address] [place] Nucleated RBC (Bld) [#/Vol] 10*3/uL Normal <0.01 [facility] Comment on above: Order Comment: Speci men Type: BLOOD SPECIMENOrdering Facility: [facility] Address: [address] [place] [address] Performed By: #### 5 7021-8 ####[facility]ORATORYCLIA [id number] [address] [place] Nucleated RBC/100 WBC (Bld) [Ratio] 0.0 /100 WBC Normal [facility] Comment on above: Order Comment: Speci men Type: BLOOD SPECIMENOrdering Facility: [facility] Address: [address] [place], [place] [address] Performed By: #### 5 7021-8 ####[facility] LABORATORYCLIA [id number] [address] [place] Platelet mean volume (Bld) [Entitic vol] 9.9 fL Normal 9.0-12.7 [facility] Comment on above: Order Comment: Speci men Type: BLOOD SPECIMENOrdering Facility: [facility] Address: [address] [place], [place] [address] Performed By: #### 5 7021-8 ####[facility] LABORATORYCLIA [id number] [address] [place] Platelets (Bld) [#/Vol] 391 10*3/uL Normal 150-400 [facility] Comment on above: Order Comment: Speci men Type: BLOOD SPECIMENOrdering Facility: [facility] Address: [address] [place] [address] Performed By: #### 5 7021-8 ####[facility] LABORATORYCLIA [id number] [place] [address] [place] RBC (Bld) [#/Vol] 3.36 10*6/uL Low 4.20-6.00 [facility] Comment on above: Order Comment: Speci men Type: BLOOD SPECIMENOrdering Facility: [facility] Address: [address] [place], [place] [address] Performed By: #### 5 7021-8 ####[facility] LABORATORYCLIA [id number] [place] [address] [place] WBC (Bld) [#/Vol] 9.00 10*3/uL Normal 3.70-11.00 [facility] Comment on above: Order Comment: Speci men Type: BLOOD SPECIMENOrdering Facility: [facility] Address: [address] [place] [address] Performed By: #### 5 7021-8 ####[facility]ORATORYCLIA [id number] [address] CONSULT PROGon 07-16-2021 CONSULT PROG Normal [facility] CONSULT PROG Normal [facility] Magnesium SerPl-mCncon 07-16 Magnesium [Mass/Vol] 2.3 mg/dL Normal 1.7-2.3 [facility] Comment on above: Order Comment: Speci men Type: BLOOD SPECIMENOrdering Facility: [facility] Address: [address] [place] [address] Performed By: #### 2 777-1, 01228-6, ####[facility]ORATORYCLIA [id number] [address] NURSING PROGon 07-16-2021 NURSING PROG Normal [facility] Phosphate SerPl-mCncon 07-16 Phosphate [Mass/Vol] 3.6 mg/dL Normal 2.7-4.8 [facility] Comment on above: Order Comment: Speci men Type: BLOOD SPECIMENOrdering Facility: [facility] Address: [address] [place] [address] Performed By: #### 2 777-1, 90606-8, ####[facility]ORATORYCLIA [id number] [address] Vancomycin random [Mass/Vol] on 07-16-2021 Vancomycin [Mass/Vol] 16.9 ug/mL Normal 10.0-20.0 [facility] Comment on above: Order Comment: Speci men Type: BLOOD SPECIMENOrdering Facility: [facility] Address: [address] [place] [address] Result Comment: Refe rence ranges and high/low indicator flags are provided as general guidelines only. The treating physician must determine appropriate target levels/dosing based on the specific clinical situation. Performed By: #### 4 091-5 ####[facility]ORATORYCLIA [id number] [address] [place] aPTT PPPon 07-16-2021 aPTT Coag (PPP) [Time] 57.2 s High 23.0-32.4 [facility] Comment on above: Order Comment: Speci men Type: BLOOD SPECIMENOrdering Facility: [facility] Address: [address] [place] [address] Performed By: #### 1 4979-9 ####[facility]ORATORYCLIA [id number] [place] [id number] [place] ALLIED HEALTHon 07-15-2021 ALLIED HEALTH Normal [facility] Basic metabolic 2000 panelon 07-15-2021 Anion gap [Moles/Vol] 11 mmol/L Normal 9-18 [facility] Comment on above: Order Comment: Speci men Type: BLOOD SPECIMENOrdering Facility: [facility] Address: [address] [place] [address] Performed By: #### 2 4321-2, , 2776-05 ####[facility]ORATORYCLIA [id number] [place] [address] [place] Calcium [Mass/Vol] 8.8 mg/dL Normal 8.5-10.2 [facility] Comment on above: Order Comment: Speci men Type: BLOOD SPECIMENOrdering Facility: [facility] Address: [address] [place] [address] Performed By: #### 2 4321-2, , 2776-05 ####[facility] LABORATORYCLIA [id number] [place] [address] [place] Chloride [Moles/Vol] 101 mmol/L Normal 97-105 [facility] Comment on above: Order Comment: Speci men Type: BLOOD SPECIMENOrdering Facility: [facility] Address: [address] [place] [address] Performed By: #### 2 4321-2, , 2776-05 ####[facility]ORATORYCLIA [id number] [place] [address] [place] CO2 [Moles/Vol] 31 mmol/L High 22-30 [facility] Comment on above: Order Comment: Speci men Type: BLOOD SPECIMENOrdering Facility: [facility] Address: [address] [place] [address] Performed By: #### 2 4321-2, , 2776-05 ####[facility]ITALCLIA [id number] [place] [address] [place] Creatinine [Mass/Vol] 0.76 mg/dL Normal 0.73-1.22 [facility] Comment on above: Order Comment: Speci men Type: BLOOD SPECIMENOrdering Facility: [facility] Address: [address] [place] [address] Performed By: #### 2 4321-2, , 2776-05 ####[facility] HOSPITALIA [id number] [address] [place] ESTIMATED GLOMERULAR FILTRATION RATE 97 mL/min/1.73m??? Normal >=60 [facility] Comment on above: Order Comment: Speccara men Type: BLOOD SPECIMENOrdering Facility: [facility] Address: [address] [place] [address] Result Comment: Luzmaria mated Glomerular Filtration Rate [...] Performed By: #### 2 4321-2, , 2776-05 ####[facility] LABORATORYIA [id number] [place] [address] [place] Glucose [Mass/Vol] 115 mg/dL High 74-99 [facility] Comment on above: Order Comment: Johni francia Type: BLOOD SPECIMENOrdering Facility: [facility] Address: [address] [place] [address] Result Comment: The [place] [employer] (ADA) provides guidance for cutoff [...] Standards of Medical Care in Diabetes 2016, [place] [employer]. Diabetes Care. 2016.39(Suppl 1). Performed By: #### 2 4321-2, , 2776-05 ####[facility]ORATORYCLIA [id number] [place] [address] [place] Potassium [Moles/Vol] 4.0 mmol/L Normal 3.7-5.1 [facility] Comment on above: Order Comment: Shira feldman Type: BLOOD SPECIMENOrdering Facility: [facility] Address: [address] [place] [address] Performed By: #### 2 4320-2, , 2776-05 ####[facility]ITALCLIA [id number] [place] [address] [place] Sodium [Moles/Vol] 143 mmol/L Normal 136-144 [facility] Comment on above: Order Comment: Shira feldman Type: BLOOD SPECIMENOrdering Facility: [facility] Address: [address] [place] [address] Performed By: #### 2 4321-2, , 2776-05 ####[facility]ORATORYCLIA [id number] [place] [address] [place] Urea nitrogen [Mass/Vol] 17 mg/dL Normal 9-24 [facility] Comment on above: Order Comment: Shira feldman Type: BLOOD SPECIMENOrdering Facility: [facility] Address: [address] [place] [address] Performed By: #### 2 4321-2, , 2776-05 ####[facility] LABORATORYCLIA [id number] [address] [place] CASE MANAGEMon 07-15-2021 CASE MANAGEM Normal [facility] CBC panel Auto (Bld)on 07-15 Erythrocyte distribution width (RBC) [Ratio] 16.4 % High 11.5-15.0 [facility] Comment on above: Order Comment: Speci men Type: BLOOD SPECIMENOrdering Facility: [facility] Address: [address] [place] [address] Performed By: #### 5 8410-2 ####[facility] LABORATORYCLIA [id number] [address] Hematocrit (Bld) [Volume fraction] 30.3 % Low 39.0-51.0 [facility] Comment on above: Order Comment: Speci men Type: BLOOD SPECIMENOrdering Facility: [facility] Address: [address] [place] [address] Performed By: #### 5 8410-2 ####[facility] LABORATORYCLIA [id number] [address] Hemoglobin (Bld) [Mass/Vol] 9.2 g/dL Low 13.0-17.0 [facility] Comment on above: Order Comment: Speci men Type: BLOOD SPECIMENOrdering Facility: [facility] Address: [address] [place] [address] Performed By: #### 5 8410-2 ####[facility]ORATORYCLIA [id number] [address] [place] MCH (RBC) [Entitic mass] 28.3 pg Normal 26.0-34.0 [facility] Comment on above: Order Comment: Speci men Type: BLOOD SPECIMENOrdering Facility: [facility] Address: [address] [place] [address] Performed By: #### 5 8410-2 ####[facility] LABORATORYCLIA [id number] [address] [place] MCHC (RBC) [Mass/Vol] 30.4 g/dL Low 30.5-36.0 [facility] Comment on above: Order Comment: Speci men Type: BLOOD SPECIMENOrdering Facility: [facility] Address: [address] [place], [place] [address] Performed By: #### 5 8410-2 ####[facility]ORATORYCLIA [id number] [address] [place] MCV (RBC) [Entitic vol] 93.2 fL Normal 80.0-100.0 [facility] Comment on above: Order Comment: Speci men Type: BLOOD SPECIMENOrdering Facility: [facility] Address: [address] [place], [place] [address] Performed By: #### 5 8410-2 ####[facility]ORATORYCLIA [id number] [address] [place] Nucleated RBC (Bld) [#/Vol] 10*3/uL Normal <0.01 [facility] Comment on above: Order Comment: Speci men Type: BLOOD SPECIMENOrdering Facility: [facility] Address: [address] [place] [address] Performed By: #### 5 8410-2 ####[facility]ORATORYCLIA [id number] [address] [place] Platelet mean volume (Bld) [Entitic vol] 9.9 fL Normal 9.0-12.7 [facility] Comment on above: Order Comment: Speci men Type: BLOOD SPECIMENOrdering Facility: [facility] Address: [address] [place], [place] [address] Performed By: #### 5 8410-2 ####[facility]ORATORYCLIA [id number] [address] [place] Platelets (Bld) [#/Vol] 381 10*3/uL Normal 150-400 [facility] Comment on above: Order Comment: Speci men Type: BLOOD SPECIMENOrdering Facility: [facility] Address: [address] [place], [place] [address] Performed By: #### 5 8410-2 ####[facility]ORATORYCLIA [id number] [place] [address] [place] RBC (Bld) [#/Vol] 3.25 10*6/uL Low 4.20-6.00 [facility] Comment on above: Order Comment: Speci men Type: BLOOD SPECIMENOrdering Facility: [facility] Address: [address] [place] [address] Performed By: #### 5 8410-2 ####[facility]ORATORYCLIA [id number] [address] [place] WBC (Bld) [#/Vol] 8.80 10*3/uL Normal 3.70-11.00 [facility] Comment on above: Order Comment: Speci men Type: BLOOD SPECIMENOrdering Facility: [facility] Address: [address] [place] [address] Performed By: #### 5 8410-2 ####[facility]ORATORYCLIA [id number] [address] [place] Magnesium SerPl-mCncon 07-15 Magnesium [Mass/Vol] 2.2 mg/dL Normal 1.7-2.3 [facility] Comment on above: Order Comment: Speci men Type: BLOOD SPECIMENOrdering Facility: [facility] Address: [address] [place] [address] Performed By: #### 2 4321-2, 94037-5, 2777-1 ####[facility]ORATORYCLIA [id number] [place] [address] [place] NURSING PROGon 07-15-2021 NURSING PROG Normal [facility] NURSING PROG Normal [facility] NURSING PROG Normal [facility] NUTRITIONon 07-15-2021 NUTRITION Normal [facility] Phosphate SerPl-mCncon 07-15 Phosphate [Mass/Vol] 3.4 mg/dL Normal 2.7-4.8 [facility] Comment on above: Order Comment: Speci men Type: BLOOD SPECIMENOrdering Facility: [facility] Address: [address] [place] [address] Performed By: #### 2 4321-2, 45000-2, 2777-1 ####[facility]ORATORYCLIA [id number] [place] [address] [facility] THERAPY NTon 07-15-2021 THERAPY NT Normal [facility] US DVT UPPER LTon 07-15-2021 US DVT UPPER LT Normal [facility] XR CHEST 1V FRONTALon 2021 XR CHEST 1V FRONTAL Normal [facility] aPTT PPPon 07-15-2021 aPTT Coag (PPP) [Time] 59.9 s High 23.0-32.4 [facility] Comment on above: Order Comment: Speci men Type: BLOOD SPECIMENOrdering Facility: [facility] Address: [address] [place] [address] Performed By: #### 1 4979-9 ####[facility]ORATORYCLIA [id number] [place] [address] [place] Basic metabolic 2000 panelon 07-14-2021 Anion gap [Moles/Vol] 9 mmol/L Normal 9-18 [facility] Comment on above: Order Comment: Speci men Type: BLOOD SPECIMENOrdering Facility: [facility] Address: [address] [place] [address] Performed By: #### 1 9123-9, 2777-1, 52628-4 ####[facility]ORATORYCLIA [id number] [place] [address] [place] Calcium [Mass/Vol] 8.5 mg/dL Normal 8.5-10.2 [facility] Comment on above: Order Comment: Speci men Type: BLOOD SPECIMENOrdering Facility: [facility] Address: [address] [place] [address] Performed By: #### 1 9123-9, 2777-1, 09464-9 ####[facility]ORATORYCLIA [id number] [place] [address] [place] Chloride [Moles/Vol] 99 mmol/L Normal 97-105 [facility] Comment on above: Order Comment: Speci men Type: BLOOD SPECIMENOrdering Facility: [facility] Address: [address] [place] [address] Performed By: #### 1 9123-9, 2777, ####[facility]ORATORYCLIA [id number] [address] CO2 [Moles/Vol] 31 mmol/L High 22-30 [facility] Comment on above: Order Comment: Speci men Type: BLOOD SPECIMENOrdering Facility: [facility] Address: [address] [place] [address] Performed By: #### 1 9123-9, 27711-04, ####[facility]ORATORYCLIA [id number] [address] Creatinine [Mass/Vol] 0.74 mg/dL Normal 0.73-1.22 [facility] Comment on above: Order Comment: Speci men Type: BLOOD SPECIMENOrdering Facility: [facility] Address: [address] [place] [address] Performed By: #### 1 9123-9, 2776-05, ####[facility]ITALCLIA [id number] [address] ESTIMATED GLOMERULAR FILTRATION RATE 98 mL/min/1.73m??? Normal >=60 [facility] Comment on above: Order Comment: Speci men Type: BLOOD SPECIMENOrdering Facility: [facility] Address: [address] [place] [address] Result Comment: Luzmaria mated Glomerular Filtration Rate [...] GFR. Performed By: #### 1 9123-9, 27711-04, 36282-1 ####[facility]ORATORYCLIA [id number] [place] [address] [place] Glucose [Mass/Vol] 117 mg/dL High 74-99 [facility] Comment on above: Order Comment: Speci men Type: BLOOD SPECIMENOrdering Facility: [facility] Address: [address] [place] [address] Result Comment: The [place] [employer] (ADA) provides guidance for cutoff [...] Standards of Medical Care in Diabetes 2016, [place] [employer]. Diabetes Care. 2016.39(Suppl 1). Performed By: #### 1 9123-9, 2777, 44146-1 ####[facility]ORATORYCLIA [id number] [place] [address] [place] Potassium [Moles/Vol] 3.7 mmol/L Normal 3.7-5.1 [facility] Comment on above: Order Comment: Speci men Type: BLOOD SPECIMENOrdering Facility: [facility] Address: [address] [place], [place] [address] Performed By: #### 1 9123-9, 27711-04, 05847-7 ####[facility]ORATORYCLIA [id number] [place] [address] [place] Sodium [Moles/Vol] 139 mmol/L Normal 136-144 [facility] Comment on above: Order Comment: Speci men Type: BLOOD SPECIMENOrdering Facility: [facility] Address: [address] [place] [address] Performed By: #### 1 9123-9, 27711-04, 50791-0 ####[facility]ORATORYCLIA [id number] [address] [place] Urea nitrogen [Mass/Vol] 16 mg/dL Normal 9-24 [facility] Comment on above: Order Comment: Speci men Type: BLOOD SPECIMENOrdering Facility: [facility] Address: [address] [place] [address] Performed By: #### 1 9123-9, 2777-1, 91341-5 ####[facility]ORATORYCLIA [id number] [address] CBC panel Auto (Bld)on 07-14 Erythrocyte distribution width (RBC) [Ratio] 16.2 % High 11.5-15.0 [facility] Comment on above: Order Comment: Speci men Type: BLOOD SPECIMENOrdering Facility: [facility] Address: [address] [place] [address] Performed By: #### 5 8410-2 ####[facility]ORATORYCLIA [id number] [address] STATES OF [facility] Hematocrit (Bld) [Volume fraction] 29.7 % Low 39.0-51.0 [facility] Comment on above: Order Comment: Speci men Type: BLOOD SPECIMENOrdering Facility: [facility] Address: [address] [place] [address] Performed By: #### 5 8410-2 ####[facility]ORATORYCLIA [id number] [address] [place] Hemoglobin (Bld) [Mass/Vol] 8.8 g/dL Low 13.0-17.0 [facility] Comment on above: Order Comment: Speci men Type: BLOOD SPECIMENOrdering Facility: [facility] Address: [address] [place] [address] Performed By: #### 5 8410-2 ####[facility]ORATORYCLIA [id number] [address] [place] MCH (RBC) [Entitic mass] 27.5 pg Normal 26.0-34.0 [facility] Comment on above: Order Comment: Speci men Type: BLOOD SPECIMENOrdering Facility: [facility] Address: [address] [place] [address] Performed By: #### 5 8410-2 ####[facility]ORATORYCLIA [id number] [address] MCHC (RBC) [Mass/Vol] 29.6 g/dL Low 30.5-36.0 [facility] Comment on above: Order Comment: Speci men Type: BLOOD SPECIMENOrdering Facility: [facility] Address: [address] [place] [address] Performed By: #### 5 8410-2 ####[facility]ORATORYCLIA [id number] [address] [place] MCV (RBC) [Entitic vol] 92.8 fL Normal 80.0-100.0 [facility] Comment on above: Order Comment: Speci men Type: BLOOD SPECIMENOrdering Facility: [facility] Address: [address] [place] [address] Performed By: #### 5 8410-2 ####[facility] LABORATORYCLIA [id number] [address] Nucleated RBC (Bld) [#/Vol] 10*3/uL Normal <0.01 [facility] Comment on above: Order Comment: Speci men Type: BLOOD SPECIMENOrdering Facility: [facility] Address: [address] [place] [address] Performed By: #### 5 8410-2 ####[facility] LABORATORYCLIA [id number] [address] Platelet mean volume (Bld) [Entitic vol] 9.6 fL Normal 9.0-12.7 [facility] Comment on above: Order Comment: Speci men Type: BLOOD SPECIMENOrdering Facility: [facility] Address: [address] [place] [address] Performed By: #### 5 8410-2 ####[facility] LABORATORYCLIA [id number] [place] [address] [place] Platelets (Bld) [#/Vol] 354 10*3/uL Normal 150-400 [facility] Comment on above: Order Comment: Speci men Type: BLOOD SPECIMENOrdering Facility: [facility] Address: [address] [place] [address] Performed By: #### 5 8410-2 ####[facility] LABORATORYCLIA [id number] [place] [address] [place] RBC (Bld) [#/Vol] 3.20 10*6/uL Low 4.20-6.00 [facility] Comment on above: Order Comment: Speci men Type: BLOOD SPECIMENOrdering Facility: [facility] Address: [address] [place] [address] Performed By: #### 5 8410-2 ####[facility] LABORATORYCLIA [id number] [address] STATES OF [facility] WBC (Bld) [#/Vol] 9.41 10*3/uL Normal 3.70-11.00 [facility] Comment on above: Order Comment: Speci men Type: BLOOD SPECIMENOrdering Facility: [facility] Address: [address] [place] [address] Performed By: #### 5 8410-2 ####[facility] LABORATORYCLIA [id number] [address] [place] CONSULT PROGon 07-14-2021 CONSULT PROG Normal [facility] Magnesium SerPl-mCncon 07-14 Magnesium [Mass/Vol] 2.2 mg/dL Normal 1.7-2.3 [facility] Comment on above: Order Comment: Speci men Type: BLOOD SPECIMENOrdering Facility: [facility] Address: [address] [place] [address] Performed By: #### 1 9123-9, 2777-1, 37802-5 ####[facility] LABORATORYCLIA [id number] [address] [place] NURSING PROGon 07-14-2021 NURSING PROG Normal [facility] Phosphate SerPl-mCncon 07-14 Phosphate [Mass/Vol] 3.6 mg/dL Normal 2.7-4.8 [facility] Comment on above: Order Comment: Speci men Type: BLOOD SPECIMENOrdering Facility: [facility] Address: [address] [place] [address] Performed By: #### 1 9123-9, 2777-1, 39326-9 ####[facility] LABORATORYCLIA [id number] [address] [place] aPTT PPPon 07-14-2021 aPTT Coag (PPP) [Time] 62.9 s High 23.0-32.4 [facility] Comment on above: Order Comment: Speci men Type: BLOOD SPECIMENOrdering Facility: [facility] Address: [address] [place] [address] Performed By: #### 1 4979-9 ####[facility] LABORATORYCLIA [id number] [address] [place] aPTT Coag (PPP) [Time] 55.2 s High 23.0-32.4 [facility] Comment on above: Order Comment: Speci men Type: BLOOD SPECIMENOrdering Facility: [facility] Address: [address] [place] [address] Performed By: #### 1 4979-9 ####[facility] LABORATORYCLIA [id number] [place] [address] [place] Basic metabolic 2000 panelon 07-13-2021 Anion gap [Moles/Vol] 10 mmol/L Normal 9-18 [facility] Comment on above: Order Comment: Speci men Type: BLOOD SPECIMENOrdering Facility: [facility] Address: [address] [place] [address] Performed By: #### 1 9123-9, 2777-1, 94056-8 ####[facility] LABORATORYCLIA [id number] [address] STATES OF [facility] Calcium [Mass/Vol] 8.5 mg/dL Normal 8.5-10.2 [facility] Comment on above: Order Comment: Speci men Type: BLOOD SPECIMENOrdering Facility: [facility] Address: [address] [place] [address] Performed By: #### 1 9123-9, 2777-1, 49925-5 ####[facility] LABORATORYCLIA [id number] [place] [address] [place] Chloride [Moles/Vol] 98 mmol/L Normal 97-105 [facility] Comment on above: Order Comment: Speci men Type: BLOOD SPECIMENOrdering Facility: [facility] Address: [address] [place] [address] Performed By: #### 1 9123-9, 27711-04, 69839-1 ####[facility]ORATORYCLIA [id number] [address] STATES OF [facility] CO2 [Moles/Vol] 32 mmol/L High 22-30 [facility] Comment on above: Order Comment: Speci men Type: BLOOD SPECIMENOrdering Facility: [facility] Address: [address] [place] [address] Performed By: #### 1 9123-9, 27711-04, 19043-0 ####[facility] LABORATORYCLIA [id number] [address] [place] Creatinine [Mass/Vol] 0.75 mg/dL Normal 0.73-1.22 [facility] Comment on above: Order Comment: Speci men Type: BLOOD SPECIMENOrdering Facility: [facility] Address: [address] [place] [address] Performed By: #### 1 9123-9, 2777, 48295-0 ####[facility] LABORATORYCLIA [id number] [address] [place] ESTIMATED GLOMERULAR FILTRATION RATE 98 mL/min/1.73m??? Normal >=60 [facility] Comment on above: Order Comment: Speci men Type: BLOOD SPECIMENOrdering Facility: [facility] Address: [address] [id number] Result Comment: Luzmaria mated Glomerular Filtration Rate [...] GFR. Performed By: #### 1 9123-9, 2777-1, 08378-5 ####[facility] LABORATORYCLIA [id number] [place] [address] [place] Glucose [Mass/Vol] 118 mg/dL High 74-99 [facility] Comment on above: Order Comment: Shira feldman Type: BLOOD SPECIMENOrdering Facility: [facility] Address: [address] [place] [address] Result Comment: The [place] Diabetes [employer] (ADA) provides guidance for cutoff [...] Standards of Medical Care in Diabetes 2016, [place] [employer]. Diabetes Care. 2016.39(Suppl 1). Performed By: #### 1 9123-9, 2777-1, 62848-7 ####[facility]ORATORYCLIA [id number] [place] [address] [place] Potassium [Moles/Vol] 3.6 mmol/L Low 3.7-5.1 [facility] Comment on above: Order Comment: Shira feldman Type: BLOOD SPECIMENOrdering Facility: [facility] Address: [address] [id number] Performed By: #### 1 9123-9, 2777-1, 19601-8 ####[facility] LABORATORYCLIA [id number] [address] Sodium [Moles/Vol] 140 mmol/L Normal 136-144 [facility] Comment on above: Order Comment: Speci men Type: BLOOD SPECIMENOrdering Facility: [facility] Address: [address] [place] [address] Performed By: #### 1 9123-9, 2777-, 97650-4 ####[facility] LABORATORYCLIA [id number] [address] STATES [facility] Urea nitrogen [Mass/Vol] 15 mg/dL Normal 9-24 [facility] Comment on above: Order Comment: Speci men Type: BLOOD SPECIMENOrdering Facility: [facility] Address: [address] [place] [address] Performed By: #### 1 9123-9, 2777, 36263-7 ####[facility] LABORATORYCLIA [id number] [address] CASE MANAGEMon 07-13-2021 CASE MANAGEM Normal [facility] CBC panel Auto (Bld)on 07-13 Erythrocyte distribution width (RBC) [Ratio] 16.2 % High 11.5-15.0 [facility] Comment on above: Order Comment: Speci men Type: BLOOD SPECIMENOrdering Facility: [facility] Address: [address] [place] [address] Performed By: #### 5 8410-2 ####[facility] LABORATORYCLIA [id number] [address] Hematocrit (Bld) [Volume fraction] 29.5 % Low 39.0-51.0 [facility] Comment on above: Order Comment: Speci men Type: BLOOD SPECIMENOrdering Facility: [facility] Address: [address] [place] [address] Performed By: #### 5 8410-2 ####[facility] LABORATORYCLIA [id number] [address] STATES OF [facility] Hemoglobin (Bld) [Mass/Vol] 8.9 g/dL Low 13.0-17.0 [facility] Comment on above: Order Comment: Speci men Type: BLOOD SPECIMENOrdering Facility: [facility] Address: [address] [place] [address] Performed By: #### 5 8410-2 ####[facility] LABORATORYCLIA [id number] [address] MCH (RBC) [Entitic mass] 27.8 pg Normal 26.0-34.0 [facility] Comment on above: Order Comment: Speci men Type: BLOOD SPECIMENOrdering Facility: [facility] Address: [address] [place] [address] Performed By: #### 5 8410-2 ####[facility] LABORATORYCLIA [id number] [address] MCHC (RBC) [Mass/Vol] 30.2 g/dL Low 30.5-36.0 [facility] Comment on above: Order Comment: Speci men Type: BLOOD SPECIMENOrdering Facility: [facility] Address: [address] [place] [address] Performed By: #### 5 8410-2 ####[facility] LABORATORYCLIA [id number] [address] MCV (RBC) [Entitic vol] 92.2 fL Normal 80.0-100.0 [facility] Comment on above: Order Comment: Speci men Type: BLOOD SPECIMENOrdering Facility: [facility] Address: [address] [place] [address] Performed By: #### 5 8410-2 ####[facility]ORATORYCLIA [id number] [address] Nucleated RBC (Bld) [#/Vol] 10*3/uL Normal <0.01 [facility] Comment on above: Order Comment: Speci men Type: BLOOD SPECIMENOrdering Facility: [facility] Address: [address] [place] [address] Performed By: #### 5 8410-2 ####[facility]ORATORYCLIA [id number] [address] [place] Platelet mean volume (Bld) [Entitic vol] 9.8 fL Normal 9.0-12.7 [facility] Comment on above: Order Comment: Speci men Type: BLOOD SPECIMENOrdering Facility: [facility] Address: [address] [place] [address] Performed By: #### 5 8410-2 ####[facility]ORATORYCLIA [id number] [address] [place] Platelets (Bld) [#/Vol] 356 10*3/uL Normal 150-400 [facility] Comment on above: Order Comment: Speci men Type: BLOOD SPECIMENOrdering Facility: [facility] Address: [address] [place] [address] Performed By: #### 5 8410-2 ####[facility]ORATORYCLIA [id number] [place] [address] [place] RBC (Bld) [#/Vol] 3.20 10*6/uL Low 4.20-6.00 [facility] Comment on above: Order Comment: Speci men Type: BLOOD SPECIMENOrdering Facility: [facility] Address: [address] [place], [place] [address] Performed By: #### 5 8410-2 ####[facility]ORATORYCLIA [id number] [address] [place] WBC (Bld) [#/Vol] 9.20 10*3/uL Normal 3.70-11.00 [facility] Comment on above: Order Comment: Speci men Type: BLOOD SPECIMENOrdering Facility: [facility] Address: [address] [place] [address] Performed By: #### 5 8410-2 ####[facility]ORATORYCLIA [id number] [address] [place] CONSULT PROGon 07-13-2021 CONSULT PROG Normal [facility] CONSULT PROG Normal [facility] CONSULT PROG Normal [facility] Magnesium SerPl-mCncon 07-13 Magnesium [Mass/Vol] 2.1 mg/dL Normal 1.7-2.3 [facility] Comment on above: Order Comment: Speci men Type: BLOOD SPECIMENOrdering Facility: [facility] Address: [address] [place] [address] Performed By: #### 1 9123-9, 2777-1, 66694-4 ####[facility]ORATORYCLIA [id number] [address] Phosphate SerPl-mCncon 07-13 Phosphate [Mass/Vol] 3.7 mg/dL Normal 2.7-4.8 [facility] Comment on above: Order Comment: Speci men Type: BLOOD SPECIMENOrdering Facility: [facility] Address: [address] [place] [address] Performed By: #### 1 9123-9, 2777-1, 30229-3 ####[facility]CL[facility] [id number] [address] THERAPY NTon 07-13-2021 THERAPY NT Normal [facility] THERAPY NT Normal [facility] Vancomycin random [Mass/Vol] on 07-13-2021 Vancomycin [Mass/Vol] 31.7 ug/mL High 10.0-20.0 [facility] Comment on above: Order Comment: Speci men Type: BLOOD SPECIMENOrdering Facility: [facility] Address: [address] [place] [address] Result Comment: Refe rence ranges and high/low indicator flags are provided as general guidelines only. The treating physician must determine appropriate target levels/dosing based on the specific clinical situation. Performed By: #### 4 091-5 ####[facility]ORATORYCLIA [id number] [address] [place] aPTT PPPon 07-13-2021 aPTT Coag (PPP) [Time] 47.3 s High 23.0-32.4 [facility] Comment on above: Order Comment: Speci men Type: BLOOD SPECIMENOrdering Facility: [facility] Address: [address] [place] [address] Performed By: #### 1 4979-9 ####[facility]ORATORYCLIA [id number] [address] aPTT Coag (PPP) [Time] 51.2 s High 23.0-32.4 [facility] Comment on above: Order Comment: Speci men Type: BLOOD SPECIMENOrdering Facility: [facility] Address: [address] [place] [address] Performed By: #### 1 4979-9 ####[facility]ORATORYCLIA [id number] [address] aPTT Coag (PPP) [Time] 47.5 s High 23.0-32.4 [facility] Comment on above: Order Comment: Speci men Type: BLOOD SPECIMENOrdering Facility: [facility] Address: [address] [place] [address] Performed By: #### 1 4979-9 ####[facility]ORATORYCLIA [id number] [address] STATES OF [facility] Basic metabolic 2000 panelon 07-12-2021 Anion gap [Moles/Vol] 7 mmol/L Low 9-18 [facility] Comment on above: Order Comment: Speci men Type: BLOOD SPECIMENOrdering Facility: [facility] Address: [address] [place] [address] Performed By: #### 1 9123-9, 2777-1, 85830-5 ####[facility]ORATORYCLIA [id number] [address] [place] OF [facility] Calcium [Mass/Vol] 8.3 mg/dL Low 8.5-10.2 [facility] Comment on above: Order Comment: Speci men Type: BLOOD SPECIMENOrdering Facility: [facility] Address: [address] [place] [address] Performed By: #### 1 9123-9, 27711-04, 92114-7 ####[facility] LABORATORYCLIA [id number] [place] [address] [place] Chloride [Moles/Vol] 101 mmol/L Normal 97-105 [facility] Comment on above: Order Comment: Speci men Type: BLOOD SPECIMENOrdering Facility: [facility] Address: [address] [place] [address] Performed By: #### 1 9123-9, 2776-05, 55851-3 ####[facility]ORATORYCLIA [id number] [address] [place] CO2 [Moles/Vol] 32 mmol/L High 22-30 [facility] Comment on above: Order Comment: Speci men Type: BLOOD SPECIMENOrdering Facility: [facility] Address: [address] [place] [address] Performed By: #### 1 9123-9, 2776-05, 43520-5 ####[facility] LABORATORYCLIA [id number] [address] [place] Creatinine [Mass/Vol] 0.70 mg/dL Low 0.73-1.22 [facility] Comment on above: Order Comment: Speci men Type: BLOOD SPECIMENOrdering Facility: [facility] Address: [address] [place] [address] Performed By: #### 1 9123-9, 27711-04, 87475-4 ####[facility]ORATORYCLIA [id number] [address] [place] ESTIMATED GLOMERULAR FILTRATION RATE 100 mL/min/1.73m??? Normal >=60 [facility] Comment on above: Order Comment: Speci men Type: BLOOD SPECIMENOrdering Facility: [facility] Address: [address] [place] [address] Result Comment: Luzmaria mated Glomerular Filtration Rate [...] GFR. Performed By: #### 1 9123-9, 2777-1, 26213-5 ####[facility]ORATORYCLIA [id number] [place] [address] [place] Glucose [Mass/Vol] 104 mg/dL High 74-99 [facility] Comment on above: Order Comment: Shira feldman Type: BLOOD SPECIMENOrdering Facility: [facility] Address: [address] [place] [address] Result Comment: The [place] Diabetes [employer] (ADA) provides guidance for cutoff [...] Standards of Medical Care in Diabetes 2016, [place] [employer]. Diabetes Care. 2016.39(Suppl 1). Performed By: #### 1 9123-9, 2777-, 49415-7 ####[facility] LABORATORYIA [id number] [place] [address] [place] Potassium [Moles/Vol] 3.7 mmol/L Normal 3.7-5.1 [facility] Comment on above: Order Comment: Shira feldman Type: BLOOD SPECIMENOrdering Facility: [facility] Address: [address] [place] [address] Performed By: #### 1 9123-9, 2777-, 62271-6 ####[facility]ORATORYCLIA [id number] [address] [place] [facility] Sodium [Moles/Vol] 140 mmol/L Normal 136-144 [facility] Comment on above: Order Comment: Speci men Type: BLOOD SPECIMENOrdering Facility: [facility] Address: [address] [place] [address] Performed By: #### 1 9123-9, 2777-1, 82222-5 ####[facility]ORATORYCLIA [id number] [address] [place] OF [facility] Urea nitrogen [Mass/Vol] 12 mg/dL Normal 9-24 [facility] Comment on above: Order Comment: Speci men Type: BLOOD SPECIMENOrdering Facility: [facility] Address: [address] [place] [address] Performed By: #### 1 9123-9, 2777-1, 14249-9 ####[facility]ORATORYCLIA [id number] [address] CBC panel Auto (Bld)on 07-12 Erythrocyte distribution width (RBC) [Ratio] 16.1 % High 11.5-15.0 [facility] Comment on above: Order Comment: Speci men Type: BLOOD SPECIMENOrdering Facility: [facility] Address: [address] [place] [address] Performed By: #### 5 8410-2 ####[facility]ORATORYCLIA [id number] [address] [place] Hematocrit (Bld) [Volume fraction] 28.2 % Low 39.0-51.0 [facility] Comment on above: Order Comment: Speci men Type: BLOOD SPECIMENOrdering Facility: [facility] Address: [address] [place] [address] Performed By: #### 5 8410-2 ####[facility]ORATORYCLIA [id number] [address] [place] Hemoglobin (Bld) [Mass/Vol] 8.5 g/dL Low 13.0-17.0 [facility] Comment on above: Order Comment: Speci men Type: BLOOD SPECIMENOrdering Facility: [facility] Address: [address] [place] [address] Performed By: #### 5 8410-2 ####[facility] LABORATORYCLIA [id number] [address] MCH (RBC) [Entitic mass] 26.8 pg Normal 26.0-34.0 [facility] Comment on above: Order Comment: Speci men Type: BLOOD SPECIMENOrdering Facility: [facility] Address: [address] [place] [address] Performed By: #### 5 8410-2 ####[facility]ORATORYCLIA [id number] [address] MCHC (RBC) [Mass/Vol] 30.1 g/dL Low 30.5-36.0 [facility] Comment on above: Order Comment: Speci men Type: BLOOD SPECIMENOrdering Facility: [facility] Address: [address] [place] [address] Performed By: #### 5 8410-2 ####[facility]ORATORYCLIA [id number] [address] MCV (RBC) [Entitic vol] 89.0 fL Normal 80.0-100.0 [facility] Comment on above: Order Comment: Speci men Type: BLOOD SPECIMENOrdering Facility: [facility] Address: [address] [place] [address] Performed By: #### 5 8410-2 ####[facility]ORATORYCLIA [id number] [address] Nucleated RBC (Bld) [#/Vol] 10*3/uL Normal <0.01 [facility] Comment on above: Order Comment: Speci men Type: BLOOD SPECIMENOrdering Facility: [facility] Address: [address] [place] [address] Performed By: #### 5 8410-2 ####[facility] LABORATORYCLIA [id number] [address] [place] Platelet mean volume (Bld) [Entitic vol] 9.6 fL Normal 9.0-12.7 [facility] Comment on above: Order Comment: Speci men Type: BLOOD SPECIMENOrdering Facility: [facility] Address: [address] [place] [address] Performed By: #### 5 8410-2 ####[facility] LABORATORYCLIA [id number] [place] [address] [place] Platelets (Bld) [#/Vol] 340 10*3/uL Normal 150-400 [facility] Comment on above: Order Comment: Speci men Type: BLOOD SPECIMENOrdering Facility: [facility] Address: [address] [place] [address] Performed By: #### 5 8410-2 ####[facility]ORATORYCLIA [id number] [place] [address] [place] RBC (Bld) [#/Vol] 3.17 10*6/uL Low 4.20-6.00 [facility] Comment on above: Order Comment: Speci men Type: BLOOD SPECIMENOrdering Facility: [facility] Address: [address] [place] [address] Performed By: #### 5 8410-2 ####[facility]ORATORYCLIA [id number] [place] [address] [place] WBC (Bld) [#/Vol] 8.66 10*3/uL Normal 3.70-11.00 [facility] Comment on above: Order Comment: Speci men Type: BLOOD SPECIMENOrdering Facility: [facility] Address: [address] [place] [address] Performed By: #### 5 8410-2 ####[facility] LABORATORYCLIA [id number] [address] [place] CONSULTon 07-12-2021 CONSULT Normal [facility] CONSULT PROGon 07-12-2021 CONSULT PROG Normal [facility] Magnesium SerPl-mCncon 07-12 Magnesium [Mass/Vol] 2.1 mg/dL Normal 1.7-2.3 [facility] Comment on above: Order Comment: Speci men Type: BLOOD SPECIMENOrdering Facility: [facility] Address: [address] [place] [address] Performed By: #### 1 9123-9, 2777-1, 52037-3 ####[facility]ORATORYCLIA [id number] [address] OF [facility] NURSING PROGon 07-12-2021 NURSING PROG Normal [facility] Phosphate SerPl-mCncon 07-12 Phosphate [Mass/Vol] 3.1 mg/dL Normal 2.7-4.8 [facility] Comment on above: Order Comment: Speci men Type: BLOOD SPECIMENOrdering Facility: [facility] Address: [address] [place] [address] Performed By: #### 1 9123-9, 2777-1, 53942-8 ####[facility]ORATORYCLIA [id number] [address] OF [facility] THERAPY NTon 07-12-2021 THERAPY NT Normal [facility] aPTT PPPon 07-12-2021 aPTT Coag (PPP) [Time] 49.5 s High 23.0-32.4 [facility] Comment on above: Order Comment: Speci men Type: BLOOD SPECIMENOrdering Facility: [facility] Address: [address] [place] [address] Performed By: #### 1 4979-9 ####[facility]ORATORYCLIA [id number] [address] aPTT Coag (PPP) [Time] 68.0 s High 23.0-32.4 [facility] Comment on above: Order Comment: Speci men Type: BLOOD SPECIMENOrdering Facility: [facility] Address: [address] [place] [address] Performed By: #### 1 4979-9 ####[facility] LABORATORYCLIA [id number] [place] [address] [place] aPTT Coag (PPP) [Time] 80.0 s High 23.0-32.4 [facility] Comment on above: Order Comment: Speci men Type: BLOOD SPECIMENOrdering Facility: [facility] Address: [address] [place] [address] Performed By: #### 1 4979-9 ####[facility] LABORATORYCLIA [id number] [address] [place] CASE MGT INIT ASSESon 2021 CASE MGT INIT ASSES Normal [facility] CBC panel Auto (Bld)on 07-11 Erythrocyte distribution width (RBC) [Ratio] 16.3 % High 11.5-15.0 [facility] Comment on above: Order Comment: Speci men Type: BLOOD SPECIMENOrdering Facility: [facility] Address: [address] [place] [address] Performed By: #### 5 8410-2 ####[facility] [id number] [address] [place] [facility] Hematocrit (Bld) [Volume fraction] 28.3 % Low 39.0-51.0 [facility] Comment on above: Order Comment: Speci men Type: BLOOD SPECIMENOrdering Facility: [facility] Address: [address] [place] [address] Performed By: #### 5 8410-2 ####[facility] LABORATORYCLIA [id number] [address] [place] Hemoglobin (Bld) [Mass/Vol] 8.8 g/dL Low 13.0-17.0 [facility] Comment on above: Order Comment: Speci men Type: BLOOD SPECIMENOrdering Facility: [facility] Address: [address] [place] [address] Performed By: #### 5 8410-2 ####[facility] LABORATORYCLIA [id number] [address] [place] MCH (RBC) [Entitic mass] 27.4 pg Normal 26.0-34.0 [facility] Comment on above: Order Comment: Speci men Type: BLOOD SPECIMENOrdering Facility: [facility] Address: [address] [place] [address] Performed By: #### 5 8410-2 ####[facility] LABORATORYCLIA [id number] [place] [address] [place] MCHC (RBC) [Mass/Vol] 31.1 g/dL Normal 30.5-36.0 [facility] Comment on above: Order Comment: Speci men Type: BLOOD SPECIMENOrdering Facility: [facility] Address: [address] [place] [address] Performed By: #### 5 8410-2 ####[facility] LABORATORYCLIA [id number] [address] [place] MCV (RBC) [Entitic vol] 88.2 fL Normal 80.0-100.0 [facility] Comment on above: Order Comment: Speci men Type: BLOOD SPECIMENOrdering Facility: [facility] Address: [address] [place] [address] Performed By: #### 5 8410-2 ####[facility]ORATORYCLIA [id number] [address] [place] Nucleated RBC (Bld) [#/Vol] 10*3/uL Normal <0.01 [facility] Comment on above: Order Comment: Speci men Type: BLOOD SPECIMENOrdering Facility: [facility] Address: [address] [place] [address] Performed By: #### 5 8410-2 ####[facility] LABORATORYCLIA [id number] [address] [place] Platelet mean volume (Bld) [Entitic vol] 9.7 fL Normal 9.0-12.7 [facility] Comment on above: Order Comment: Speci men Type: BLOOD SPECIMENOrdering Facility: [facility] Address: [address] [place] [address] Performed By: #### 5 8410-2 ####[facility] LABORATORYCLIA [id number] [address] Platelets (Bld) [#/Vol] 315 10*3/uL Normal 150-400 [facility] Comment on above: Order Comment: Speci men Type: BLOOD SPECIMENOrdering Facility: [facility] Address: [address] [place] [address] Performed By: #### 5 8410-2 ####[facility] LABORATORYCLIA [id number] [address] [place] OF [facility] RBC (Bld) [#/Vol] 3.21 10*6/uL Low 4.20-6.00 [facility] Comment on above: Order Comment: Speci men Type: BLOOD SPECIMENOrdering Facility: [facility] Address: [address] [place] [address] Performed By: #### 5 8410-2 ####[facility]ORATORYCLIA [id number] [address] WBC (Bld) [#/Vol] 9.18 10*3/uL Normal 3.70-11.00 [facility] Comment on above: Order Comment: Speci men Type: BLOOD SPECIMENOrdering Facility: [facility] Address: [address] [place] [address] Performed By: #### 5 8410-2 ####[facility] LABORATORYCLIA [id number] [address] CONSULT PROGon 07-11-2021 CONSULT PROG Normal [facility] CT BRAIN WO IVCONon 07-12-19 CT BRAIN WO IVCON Normal [facility] Magnesium SerPl-mCncon 07-11 Magnesium [Mass/Vol] 2.1 mg/dL Normal 1.7-2.3 [facility] Comment on above: Order Comment: Speci men Type: BLOOD SPECIMENOrdering Facility: [facility] Address: [address] [place] [address] Performed By: #### 1 9123-9, 2777-1 ####[facility]ORATORYCLIA [id number] [address] NURSING PROGon 07-11-2021 NURSING PROG Normal [facility] NURSING PROG Normal [facility] Phosphate SerPl-mCncon 07-11 Phosphate [Mass/Vol] 3.4 mg/dL Normal 2.7-4.8 [facility] Comment on above: Order Comment: Speci men Type: BLOOD SPECIMENOrdering Facility: [facility] Address: [address] [place] [address] Performed By: #### 1 9123-9, 2777-1 ####[facility] LABORATORYCLIA [id number] [address] THERAPY NTon 07-11-2021 THERAPY NT Normal [facility] Vancomycin random [Mass/Vol] on 07-11-2021 Vancomycin [Mass/Vol] 28.6 ug/mL High 10.0-20.0 [facility] Comment on above: Order Comment: Speci men Type: BLOOD SPECIMENOrdering Facility: [facility] Address: [address] [place] [address] Result Comment: Refe rence ranges and high/low indicator flags are provided as general guidelines only. The treating physician must determine appropriate target levels/dosing based on the specific clinical situation. Performed By: #### 4 091-5 ####[facility] LABORATORYCLIA [id number] [address] aPTT PPPon 07-11-2021 aPTT Coag (PPP) [Time] 62.0 s High 23.0-32.4 [facility] Comment on above: Order Comment: Speci men Type: BLOOD SPECIMENOrdering Facility: [facility] Address: [address] [place] [address] Performed By: #### 1 4979-9 ####[facility] LABORATORYCLIA [id number] [address] aPTT Coag (PPP) [Time] 52.7 s High 23.0-32.4 [facility] Comment on above: Order Comment: Speci men Type: BLOOD SPECIMENOrdering Facility: [facility] Address: [address] [place] [address] Performed By: #### 1 4979-9 ####[facility]ORATORYCLIA [id number] [place] [address] [place] aPTT Coag (PPP) [Time] 29.9 s Normal 23.0-32.4 [facility] Comment on above: Order Comment: Speci men Type: BLOOD SPECIMENOrdering Facility: [facility] Address: [address] [place] [address] Performed By: #### 1 4979-9 ####[facility]ORATORYCLIA [id number] [place] [address] [place] Basic metabolic 2000 panelon 07-10-2021 Anion gap [Moles/Vol] 14 mmol/L Normal 9-18 [facility] Comment on above: Order Comment: Speci men Type: BLOOD SPECIMENOrdering Facility: [facility] Address: [address] [place] [address] Performed By: #### 1 9123-9, 2777-1, 17223-3 ####[facility]ITALCLIA [id number] [place] [address] [place] Calcium [Mass/Vol] 8.5 mg/dL Normal 8.5-10.2 [facility] Comment on above: Order Comment: Speci men Type: BLOOD SPECIMENOrdering Facility: [facility] Address: [address] [place] [address] Performed By: #### 1 9123-9, 2777-1, 04085-6 ####[facility]ORATORYCLIA [id number] [address] [place] Chloride [Moles/Vol] 100 mmol/L Normal 97-105 [facility] Comment on above: Order Comment: Speci men Type: BLOOD SPECIMENOrdering Facility: [facility] Address: [address] [place] [address] Performed By: #### 1 9123-9, 2777-1, 31274-4 ####[facility]ITALCLIA [id number] [address] STATES OF [facility] CO2 [Moles/Vol] 27 mmol/L Normal 22-30 [facility] Comment on above: Order Comment: Speci men Type: BLOOD SPECIMENOrdering Facility: [facility] Address: [address] [place] [address] Performed By: #### 1 9123-9, 2777, 48645-3 ####[facility]ITALCLIA [id number] [address] Creatinine [Mass/Vol] 0.66 mg/dL Low 0.73-1.22 [facility] Comment on above: Order Comment: Speci men Type: BLOOD SPECIMENOrdering Facility: [facility] Address: [address] [place] [address] Performed By: #### 1 9123-9, 2777, 52558-9 ####[facility]PITALIA [id number] [address] ESTIMATED GLOMERULAR FILTRATION RATE 102 mL/min/1.73m??? Normal >=60 [facility] Comment on above: Order Comment: Speci men Type: BLOOD SPECIMENOrdering Facility: [facility] Address: [address] [place] [address] Result Comment: Luzmaria mated Glomerular Filtration Rate [...] GFR. Performed By: #### 1 9123-9, 2777-1, 94059-3 ####[facility] LABORATORYCLIA [id number] [place] [address] [place] Glucose [Mass/Vol] 93 mg/dL Normal 74-99 [facility] Comment on above: Order Comment: Shira feldman Type: BLOOD SPECIMENOrdering Facility: [facility] Address: [address] [place], [place] [id number] Result Comment: The [place] [employer] (ADA) provides guidance for cutoff [...] Standards of Medical Care in Diabetes 2016, [place] [employer]. Diabetes Care. 2016.39(Suppl 1). Performed By: #### 1 9123-9, 2777-, 60478-3 ####[facility]ORATORYCLIA [id number] [place] [address] [place] Potassium [Moles/Vol] 3.5 mmol/L Low 3.7-5.1 [facility] Comment on above: Order Comment: Shira feldman Type: BLOOD SPECIMENOrdering Facility: [facility] Address: [address] [place], [place] [id number] Performed By: #### 1 9123-9, 2777-, 66495-8 ####[facility]ORATORYCLIA [id number] [place] [address] [place] Sodium [Moles/Vol] 141 mmol/L Normal 136-144 [facility] Comment on above: Order Comment: Shira feldman Type: BLOOD SPECIMENOrdering Facility: [facility] Address: [address] [place], [place] [address] Performed By: #### 1 9123-9, 2777-, 17009-0 ####[facility]ORATORYCLIA [id number] [place] [address] [place] Urea nitrogen [Mass/Vol] 11 mg/dL Normal 9-24 [facility] Comment on above: Order Comment: Speci men Type: BLOOD SPECIMENOrdering Facility: [facility] Address: [address] [place] [address] Performed By: #### 1 9123-9, 2777-1, 65819-2 ####[facility]ORATORYCLIA [id number] [address] [place] [facility] CBC panel Auto (Bld)on 07-10 Erythrocyte distribution width (RBC) [Ratio] 16.2 % High 11.5-15.0 [facility] Comment on above: Order Comment: Speci men Type: BLOOD SPECIMENOrdering Facility: [facility] Address: [address] [place] [address] Performed By: #### 5 8410-2 ####[facility] LABORATORYCLIA [id number] [address] [place] [facility] Hematocrit (Bld) [Volume fraction] 30.6 % Low 39.0-51.0 [facility] Comment on above: Order Comment: Speci men Type: BLOOD SPECIMENOrdering Facility: [facility] Address: [address] [place] [address] Performed By: #### 5 8410-2 ####[facility] LABORATORYCLIA [id number] [address] STATES OF [facility] Hemoglobin (Bld) [Mass/Vol] 9.6 g/dL Low 13.0-17.0 [facility] Comment on above: Order Comment: Speci men Type: BLOOD SPECIMENOrdering Facility: [facility] Address: [address] [place] [address] Performed By: #### 5 8410-2 ####[facility] LABORATORYCLIA [id number] [address] MCH (RBC) [Entitic mass] 28.3 pg Normal 26.0-34.0 [facility] Comment on above: Order Comment: Speci men Type: BLOOD SPECIMENOrdering Facility: [facility] Address: [address] [place] [address] Performed By: #### 5 8410-2 ####[facility] LABORATORYCLIA [id number] [address] MCHC (RBC) [Mass/Vol] 31.4 g/dL Normal 30.5-36.0 [facility] Comment on above: Order Comment: Speci men Type: BLOOD SPECIMENOrdering Facility: [facility] Address: [address] [place] [address] Performed By: #### 5 8410-2 ####[facility] LABORATORYCLIA [id number] [address] [place] MCV (RBC) [Entitic vol] 90.3 fL Normal 80.0-100.0 [facility] Comment on above: Order Comment: Speci men Type: BLOOD SPECIMENOrdering Facility: [facility] Address: [address] [place] [address] Performed By: #### 5 8410-2 ####[facility] LABORATORYCLIA [id number] [address] OF [facility] Nucleated RBC (Bld) [#/Vol] 10*3/uL Normal <0.01 [facility] Comment on above: Order Comment: Speci men Type: BLOOD SPECIMENOrdering Facility: [facility] Address: [address] [place] [address] Performed By: #### 5 8410-2 ####[facility]ORATORYCLIA [id number] [address] Platelet mean volume (Bld) [Entitic vol] 9.7 fL Normal 9.0-12.7 [facility] Comment on above: Order Comment: Speci men Type: BLOOD SPECIMENOrdering Facility: [facility] Address: [address] [place] [address] Performed By: #### 5 8410-2 ####[facility]ORATORYCLIA [id number] [address] [place] Platelets (Bld) [#/Vol] 306 10*3/uL Normal 150-400 [facility] Comment on above: Order Comment: Speci men Type: BLOOD SPECIMENOrdering Facility: [facility] Address: [address] [place] [address] Performed By: #### 5 8410-2 ####[facility] LABORATORYCLIA [id number] [place] [address] [place] RBC (Bld) [#/Vol] 3.39 10*6/uL Low 4.20-6.00 [facility] Comment on above: Order Comment: Speci men Type: BLOOD SPECIMENOrdering Facility: [facility] Address: [address] [place] [address] Performed By: #### 5 8410-2 ####[facility]ORATORYCLIA [id number] [address] STATES OF [facility] WBC (Bld) [#/Vol] 9.81 10*3/uL Normal 3.70-11.00 [facility] Comment on above: Order Comment: Speci men Type: BLOOD SPECIMENOrdering Facility: [facility] Address: [address] [place] [address] Performed By: #### 5 8410-2 ####[facility] LABORATORYCLIA [id number] [address] [place] CONSULTon 07-10-2021 CONSULT Normal [facility] CONSULT Normal [facility] Magnesium SerPl-mCncon 07-10 Magnesium [Mass/Vol] 1.9 mg/dL Normal 1.7-2.3 [facility] Comment on above: Order Comment: Speci men Type: BLOOD SPECIMENOrdering Facility: [facility] Address: [address] [place] [address] Performed By: #### 1 9123-9, 2777-1, 56716-3 ####[facility] LABORATORYCLIA [id number] [place] [address] [place] NURSING PROGon 07-10-2021 NURSING PROG Normal [facility] NURSING PROG Normal [facility] NUTRITIONon 07-10-2021 NUTRITION Normal [facility] Phosphate SerPl-mCncon 07-10 Phosphate [Mass/Vol] 3.6 mg/dL Normal 2.7-4.8 [facility] Comment on above: Order Comment: Speci men Type: BLOOD SPECIMENOrdering Facility: [facility] Address: [address] [place] [address] Performed By: #### 1 9123-9, 2777-1, 20986-5 ####[facility]ORATORYCLIA [id number] [place] [address] [place] US DVT LOWER BILon US DVT LOWER RAINER Normal [facility] aPTT PPPon 07-10-2021 aPTT Coag (PPP) [Time] 28.8 s Normal 23.0-32.4 [facility] Comment on above: Order Comment: Speci men Type: BLOOD SPECIMENOrdering Facility: [facility] Address: [address] [place] [address] Performed By: #### 1 4979-9 ####[facility]ORATORYCLIA [id number] [address] aPTT Coag (PPP) [Time] 28.4 s Normal 23.0-32.4 [facility] Comment on above: Order Comment: Speci men Type: BLOOD SPECIMENOrdering Facility: [facility] Address: [address] [place] [address] Performed By: #### 1 4979-9 ####[facility]ORATORYCLIA [id number] [place] [address] [place] ALLIED HEALTHon 07-09-2021 ALLIED HEALTH Normal [facility] Basic metabolic 2000 panelon 07-09-2021 Anion gap [Moles/Vol] 9 mmol/L Normal 9-18 [facility] Comment on above: Order Comment: Speci men Type: BLOOD SPECIMENOrdering Facility: [facility] Address: [address] [place] [address] Performed By: #### 1 9123-9, 2777, 63112-7 ####[facility]ORATORYCLIA [id number] [place] [address] [place] Calcium [Mass/Vol] 8.3 mg/dL Low 8.5-10.2 [facility] Comment on above: Order Comment: Speci men Type: BLOOD SPECIMENOrdering Facility: [facility] Address: [address] [place] [address] Performed By: #### 1 9123-9, 27711-04, 94846-6 ####[facility]ORATORYCLIA [id number] [place] [address] [place] Chloride [Moles/Vol] 100 mmol/L Normal 97-105 [facility] Comment on above: Order Comment: Speci men Type: BLOOD SPECIMENOrdering Facility: [facility] Address: [address] [place] [address] Performed By: #### 1 9123-9, 27711-04, 89376-6 ####[facility]ORATORYCLIA [id number] [address] [place] CO2 [Moles/Vol] 29 mmol/L Normal 22-30 [facility] Comment on above: Order Comment: Speci men Type: BLOOD SPECIMENOrdering Facility: [facility] Address: [address] [place] [address] Performed By: #### 1 9123-9, 2776-05, 14997-7 ####[facility]ORATORYCLIA [id number] [place] [address] [place] Creatinine [Mass/Vol] 0.61 mg/dL Low 0.73-1.22 [facility] Comment on above: Order Comment: Speci men Type: BLOOD SPECIMENOrdering Facility: [facility] Address: [address] [place] [address] Performed By: #### 1 9123-9, 27711-04, 75893-4 ####[facility]ORATORYCLIA [id number] [place] [address] [place] ESTIMATED GLOMERULAR FILTRATION RATE 104 mL/min/1.73m??? Normal >=60 [facility] Comment on above: Order Comment: Shira feldman Type: BLOOD SPECIMENOrdering Facility: [facility] Address: [address] [place], [place] [id number] Result Comment: Luzmaria mated Glomerular Filtration Rate [...] GFR. Performed By: #### 1 9123-9, 2777-1, 00256-9 ####[facility]ITALCLIA [id number] [place] [address] [place] Glucose [Mass/Vol] 106 mg/dL High 74-99 [facility] Comment on above: Order Comment: Shira feldman Type: BLOOD SPECIMENOrdering Facility: [facility] Address: [address] [place] [address] Result Comment: The [place] [employer] (ADA) provides guidance for cutoff [...] Standards of Medical Care in Diabetes 2016, [place] [employer]. Diabetes Care. 2016.39(Suppl 1). Performed By: #### 1 9123-9, 2777-1, 44206-8 ####[facility]ORATORYCLIA [id number] [place] [address] [place] Potassium [Moles/Vol] 3.6 mmol/L Low 3.7-5.1 [facility] Comment on above: Order Comment: Speci men Type: BLOOD SPECIMENOrdering Facility: [facility] Address: [address] [place] [address] Performed By: #### 1 9123-9, 2777-, 67633-3 ####[facility]ORATORYCLIA [id number] [address] STATES OF [facility] Sodium [Moles/Vol] 138 mmol/L Normal 136-144 [facility] Comment on above: Order Comment: Speci men Type: BLOOD SPECIMENOrdering Facility: [facility] Address: [address] [place] [address] Performed By: #### 1 9123-9, 27711-04, 71478-1 ####[facility]ORATORYCLIA [id number] [address] [place] OF [facility] Urea nitrogen [Mass/Vol] 12 mg/dL Normal 9-24 [facility] Comment on above: Order Comment: Speci men Type: BLOOD SPECIMENOrdering Facility: [facility] Address: [address] [place] [address] Performed By: #### 1 9123-9, 27711-04, 94400-9 ####[facility]ATORYCLIA [id number] [address] [place] [facility] CBC panel Auto (Bld)on 07-09 Erythrocyte distribution width (RBC) [Ratio] 16.2 % High 11.5-15.0 [facility] Comment on above: Order Comment: Speci men Type: BLOOD SPECIMENOrdering Facility: [facility] Address: [address] [place] [address] Performed By: #### 5 8410-2 ####[facility]ORATORYCLIA [id number] [address] Hematocrit (Bld) [Volume fraction] 29.0 % Low 39.0-51.0 [facility] Comment on above: Order Comment: Speci men Type: BLOOD SPECIMENOrdering Facility: [facility] Address: [address] [place] [address] Performed By: #### 5 8410-2 ####[facility]ORATORYCLIA [id number] [address] Hemoglobin (Bld) [Mass/Vol] 8.8 g/dL Low 13.0-17.0 [facility] Comment on above: Order Comment: Speci men Type: BLOOD SPECIMENOrdering Facility: [facility] Address: [address] [place] [address] Performed By: #### 5 8410-2 ####[facility]ORATORYCLIA [id number] [address] MCH (RBC) [Entitic mass] 27.0 pg Normal 26.0-34.0 [facility] Comment on above: Order Comment: Speci men Type: BLOOD SPECIMENOrdering Facility: [facility] Address: [address] [place] [address] Performed By: #### 5 8410-2 ####[facility]ORATORYCLIA [id number] [address] MCHC (RBC) [Mass/Vol] 30.3 g/dL Low 30.5-36.0 [facility] Comment on above: Order Comment: Speci men Type: BLOOD SPECIMENOrdering Facility: [facility] Address: [address] [place] [address] Performed By: #### 5 8410-2 ####[facility]ATORYCLIA [id number] [address] MCV (RBC) [Entitic vol] 89.0 fL Normal 80.0-100.0 [facility] Comment on above: Order Comment: Speci men Type: BLOOD SPECIMENOrdering Facility: [facility] Address: [address] [place] [address] Performed By: #### 5 8410-2 ####[facility]ORATORYCLIA [id number] [address] Nucleated RBC (Bld) [#/Vol] 10*3/uL Normal <0.01 [facility] Comment on above: Order Comment: Speci men Type: BLOOD SPECIMENOrdering Facility: [facility] Address: [address] [place], [place] [address] Performed By: #### 5 8410-2 ####[facility]ORATORYCLIA [id number] [address] [place] Platelet mean volume (Bld) [Entitic vol] 9.8 fL Normal 9.0-12.7 [facility] Comment on above: Order Comment: Speci men Type: BLOOD SPECIMENOrdering Facility: [facility] Address: [address] [place] [address] Performed By: #### 5 8410-2 ####[facility]ORATORYCLIA [id number] [address] [place] Platelets (Bld) [#/Vol] 281 10*3/uL Normal 150-400 [facility] Comment on above: Order Comment: Speci men Type: BLOOD SPECIMENOrdering Facility: [facility] Address: [address] [place], [place] [id number] Performed By: #### 5 8410-2 ####[facility] LABORATORYCLIA [id number] [place] [address] [place] RBC (Bld) [#/Vol] 3.26 10*6/uL Low 4.20-6.00 [facility] Comment on above: Order Comment: Speci men Type: BLOOD SPECIMENOrdering Facility: [facility] Address: [address] [place], [place] [id number] Performed By: #### 5 8410-2 ####[facility] LABORATORYCLIA [id number] [address] [place] WBC (Bld) [#/Vol] 9.12 10*3/uL Normal 3.70-11.00 [place] [facility] Comment on above: Order Comment: Speci men Type: BLOOD SPECIMENOrdering Facility: [facility] Address: [address] [place], [place] [address] Performed By: #### 5 8410-2 ####[facility] LABORATORYCLIA [id number] [address] OF [facility] CONSULT PROGon 07-09-2021 CONSULT PROG Normal [facility] CONSULT PROG Normal [facility] HISTORY PHYSICALon HISTORY PHYSICAL Normal [facility] Magnesium SerPl-mCncon 07-09 Magnesium [Mass/Vol] 1.9 mg/dL Normal 1.7-2.3 [facility] Comment on above: Order Comment: Speci men Type: BLOOD SPECIMENOrdering Facility: [facility] Address: [address] [place] [address] Performed By: #### 1 9123-9, 2777-1, 44957-9 ####[facility] LABORATORYCLIA [id number] [address] Phosphate SerPl-ncon 07-09 Phosphate [Mass/Vol] 3.6 mg/dL Normal 2.7-4.8 [facility] Comment on above: Order Comment: Speci men Type: BLOOD SPECIMENOrdering Facility: [facility] Address: [address] [place] [address] Performed By: #### 1 9123-9, 2777-1, 33907-1 ####[facility] LABORATORYCLIA [id number] [address] [place] THERAPY NTon 07-09-2021 THERAPY [...] on above: Performed By: #### 6 00-7 ####[facility] LABORATORYCLIA [id number] [address] Bacteria identified Cx Nom (Bld) CULTURE, BLOOD: No growth 5 days [facility] Comment on above: Performed By: #### 6 00-7 ####[facility] LABORATORYCLIA [id number] [address] Bacteria CSF Culton 07-09-19 22 Bacteria identified Cx Nom (CSF) CULTURE, CSF: No growth 14 days GRAM STAIN: No organisms seen No Polymorphonuclear Leukocytes Few Red Blood Cells Gram stain performed on cytospun specimen. Normal [facility] Comment on above: Performed By: #### 6 06-4 ####[facility] LABORATORYCLIA [id number] [address] Bacteria Ur Culton 2 Bacteria identified Cx Nom (U) ORGANISM ID: 1 10,000 -<50,000 CFU/ml Proteus species Insignificant colony count. No further workup. ORGANISM ID: 2 <10,000 CFU/ml Normal urogenital chris Normal [facility] Comment on above: Performed By: #### 6 30-4 ####[facility] LABORATORYCLIA [id number] [address] Bacteria Wnd Culton 07-09-19 22 Bacteria identified Cx Nom (Wound) ORGANISM ID: 1 Coagulase negative staphylococcus Growth in Enrichment Broth Only No susceptibility testing done. Call lab within 72 hours to initiate work-up if clinically indicated. GRAM STAIN: Account credited. Not performed on this specimen type. [facility] Comment on above: Performed By: #### 6 462-6 ####[facility] LABORATORYCLIA [id number] [address] Bacteria identified Cx Nom (Wound) ORGANISM ID: 1 Rare Coagulase negative staphylococcus No susceptibility testing done. Call lab within 72 hours to initiate work-up if clinically indicated. GRAM STAIN: Account credited. Not performed on this specimen type. [facility] Comment on above: Performed By: #### 6 462-6 ####[facility]ORATORYCLIA [id number] [place] [address] [place] Bacteria identified Cx Nom (Wound) CULTURE, INTRAOPERATIVE HARDWARE: No growth 14 days GRAM STAIN: Account credited. Not performed on this specimen type. Normal [facility] Comment on above: Performed By: #### 6 462-6 ####[facility] LABORATORYCLIA [id number] [place] [address] [place] Basic metabolic 2000 panelon 07-08-2021 Anion gap [Moles/Vol] 9 mmol/L Normal 9-18 [facility] Comment on above: Order Comment: Speci men Type: BLOOD SPECIMENOrdering Facility: [facility] Address: [address] [place] [address] Performed By: #### 2 4321-2 ####[facility] LABORATORYCLIA [id number] [place] [address] [place] Calcium [Mass/Vol] 8.5 mg/dL Normal 8.5-10.2 [facility] Comment on above: Order Comment: Speci men Type: BLOOD SPECIMENOrdering Facility: [facility] Address: [address] [place] [address] Performed By: #### 2 4321-2 ####[facility] LABORATORYCLIA [id number] [address] [place] Chloride [Moles/Vol] 98 mmol/L Normal 97-105 [facility] Comment on above: Order Comment: Speci men Type: BLOOD SPECIMENOrdering Facility: [facility] Address: [address] [place] [address] Performed By: #### 2 4321-2 ####[facility] LABORATORYCLIA [id number] [address] [place] CO2 [Moles/Vol] 31 mmol/L High 22-30 [facility] Comment on above: Order Comment: Speci men Type: BLOOD SPECIMENOrdering Facility: [facility] Address: [address] [place] [address] Performed By: #### 2 4321-2 ####[facility] LABORATORYCLIA [id number] [address] STATES OF [facility] Creatinine [Mass/Vol] 0.64 mg/dL Low 0.73-1.22 [facility] Comment on above: Order Comment: Shira francia Type: BLOOD SPECIMENOrdering Facility: [facility] Address: [address] [place] [address] Performed By: #### 2 4321-2 ####[facility] LABORATORYCLIA [id number] [address] ESTIMATED GLOMERULAR FILTRATION RATE 102 mL/min/1.73m??? Normal >=60 [facility] Comment on above: Order Comment: Shira feldman Type: BLOOD SPECIMENOrdering Facility: [facility] Address: [address] [place] [address] Result Comment: Luzmaria mated Glomerular Filtration Rate [...] actual GFR. Performed By: #### 2 4321-2 ####[facility]ORATORYCLIA [id number] [address] [place] Glucose [Mass/Vol] 114 mg/dL High 74-99 [facility] Comment on above: Order Comment: Johncara feldman Type: BLOOD SPECIMENOrdering Facility: [facility] Address: [address] [place] [address] Result Comment: The [place] [employer] (ADA) provides guidance for cutoff [...] Standards of Medical Care in Diabetes 2016, [place] [employer]. Diabetes Care. 2016.39(Suppl 1). Performed By: #### 2 4321-2 ####[facility] LABORATORYCLIA [id number] [place] [address] [place] Potassium [Moles/Vol] 3.4 mmol/L Low 3.7-5.1 [facility] Comment on above: Order Comment: Speci men Type: BLOOD SPECIMENOrdering Facility: [facility] Address: [address] [place] [address] Performed By: #### 2 4321-2 ####[facility] LABORATORYCLIA [id number] [address] STATES [facility] Sodium [Moles/Vol] 138 mmol/L Normal 136-144 [facility] Comment on above: Order Comment: Speci men Type: BLOOD SPECIMENOrdering Facility: [facility] Address: [address] [place] [address] Performed By: #### 2 4321-2 ####[facility] LABORATORYCLIA [id number] [address] STATES [facility] Urea nitrogen [Mass/Vol] 14 mg/dL Normal 9-24 [facility] Comment on above: Order Comment: Speci men Type: BLOOD SPECIMENOrdering Facility: [facility] Address: [address] [address] Performed By: #### 2 4321-2 ####[facility]ORATORYCLIA [id number] [place] [address] [place] CBC W Auto Differential pane l (Bld)on 07-08-2021 Basophils (Bld) [#/Vol] 0.05 10*3/uL Normal <0.11 [facility] Comment on above: Order Comment: Speci men Type: BLOOD SPECIMENOrdering Facility: [facility] Address: [address] [address] Performed By: #### 5 7021-8 ####[facility]ATORYCLIA [id number] [address] [place] Basophils/100 WBC (Bld) 0.4 % Normal [facility] Comment on above: Order Comment: Speci men Type: BLOOD SPECIMENOrdering Facility: [facility] Address: [address] [place] [address] Performed By: #### 5 7021-8 ####[facility]ORATORYCLIA [id number] [address] [place] Differential cell count method Nom (Bld) Auto Normal [facility] Comment on above: Order Comment: Speci men Type: BLOOD SPECIMENOrdering Facility: [facility] Address: [address] [place] [address] Performed By: #### 5 7021-8 ####[facility]ORATORYCLIA [id number] [address] [place] Eosinophils (Bld) [#/Vol] 0.68 10*3/uL High <0.46 [facility] Comment on above: Order Comment: Speci men Type: BLOOD SPECIMENOrdering Facility: [facility] Address: [address] [place] [address] Performed By: #### 5 7021-8 ####[facility]ORATORYCLIA [id number] [address] Eosinophils/100 WBC (Bld) 5.4 % Normal [facility] Comment on above: Order Comment: Speci men Type: BLOOD SPECIMENOrdering Facility: [facility] Address: [address] [place] [address] Performed By: #### 5 7021-8 ####[facility]ORATORYCLIA [id number] [address] [place] Erythrocyte distribution width (RBC) [Ratio] 16.3 % High 11.5-15.0 [facility] Comment on above: Order Comment: Speci men Type: BLOOD SPECIMENOrdering Facility: [facility] Address: [address] [address] Performed By: #### 5 7021-8 ####[facility] LABORATORYCLIA [id number] [address] Hematocrit (Bld) [Volume fraction] 35.7 % Low 39.0-51.0 [facility] Comment on above: Order Comment: Speci men Type: BLOOD SPECIMENOrdering Facility: [facility] Address: [address] [place] [address] Performed By: #### 5 7021-8 ####[facility] LABORATORYCLIA [id number] [address] Hemoglobin (Bld) [Mass/Vol] 10.8 g/dL Low 13.0-17.0 [facility] Comment on above: Order Comment: Speci men Type: BLOOD SPECIMENOrdering Facility: [facility] Address: [address] [place] [address] Performed By: #### 5 7021-8 ####[facility] LABORATORYCLIA [id number] [address] IMMATURE GRAN % 0.4 % Normal [facility] Comment on above: Order Comment: Speci men Type: BLOOD SPECIMENOrdering Facility: [facility] Address: [address] [place] [address] Performed By: #### 5 7021-8 ####[facility]ORATORYCLIA [id number] [address] IMMATURE GRAN ABS 0.05 k/uL Normal <0.10 [facility] Comment on above: Order Comment: Speci men Type: BLOOD SPECIMENOrdering Facility: [facility] Address: [address] [place] [address] Performed By: #### 5 7021-8 ####[facility] LABORATORYCLIA [id number] [address] OF [facility] Lymphocytes (Bld) [#/Vol] 1.85 10*3/uL Normal 1.00-4.00 [facility] Comment on above: Order Comment: Speci men Type: BLOOD SPECIMENOrdering Facility: [facility] Address: [address] [place] [address] Performed By: #### 5 7021-8 ####[facility] LABORATORYCLIA [id number] [address] Lymphocytes/100 WBC (Bld) 14.7 % Normal [facility] Comment on above: Order Comment: Speci men Type: BLOOD SPECIMENOrdering Facility: [facility] Address: [address] [place] [address] Performed By: #### 5 7021-8 ####[facility] LABORATORYCLIA [id number] [address] MCH (RBC) [Entitic mass] 27.1 pg Normal 26.0-34.0 [facility] Comment on above: Order Comment: Speci men Type: BLOOD SPECIMENOrdering Facility: [facility] Address: [address] [place] [address] Performed By: #### 5 7021-8 ####[facility] LABORATORYCLIA [id number] [address] MCHC (RBC) [Mass/Vol] 30.3 g/dL Low 30.5-36.0 [facility] Comment on above: Order Comment: Speci men Type: BLOOD SPECIMENOrdering Facility: [facility] Address: [address] [place] [address] Performed By: #### 5 7021-8 ####[facility] LABORATORYCLIA [id number] [address] MCV (RBC) [Entitic vol] 89.7 fL Normal 80.0-100.0 [facility] Comment on above: Order Comment: Speci men Type: BLOOD SPECIMENOrdering Facility: [facility] Address: [address] [place] [address] Performed By: #### 5 7021-8 ####[facility] LABORATORYCLIA [id number] [address] [place] Monocytes (Bld) [#/Vol] 0.87 10*3/uL High <0.87 [facility] Comment on above: Order Comment: Speci men Type: BLOOD SPECIMENOrdering Facility: [facility] Address: [address] [place] [address] Performed By: #### 5 7021-8 ####[facility] LABORATORYCLIA [id number] [place] [address] [place] Monocytes/100 WBC (Bld) 6.9 % Normal [facility] Comment on above: Order Comment: Speci men Type: BLOOD SPECIMENOrdering Facility: [facility] Address: [address] [place] [address] Performed By: #### 5 7021-8 ####[facility] LABORATORYCLIA [id number] [address] [place] Neutrophils (Bld) [#/Vol] 9.05 10*3/uL High 1.45-7.50 [facility] Comment on above: Order Comment: Speci men Type: BLOOD SPECIMENOrdering Facility: [facility] Address: [address] [place] [address] Performed By: #### 5 7021-8 ####[facility] LABORATORYCLIA [id number] [address] [place] Neutrophils/100 WBC (Bld) 72.2 % Normal [facility] Comment on above: Order Comment: Speci men Type: BLOOD SPECIMENOrdering Facility: [facility] Address: [address] [place] [address] Performed By: #### 5 7021-8 ####[facility] LABORATORYCLIA [id number] [place] [address] [place] Nucleated RBC (Bld) [#/Vol] 10*3/uL Normal <0.01 [facility] Comment on above: Order Comment: Speci men Type: BLOOD SPECIMENOrdering Facility: [facility] Address: [address] [place] [address] Performed By: #### 5 7021-8 ####[facility] LABORATORYCLIA [id number] [address] [place] Nucleated RBC/100 WBC (Bld) [Ratio] 0.0 /100 WBC Normal [facility] Comment on above: Order Comment: Speci men Type: BLOOD SPECIMENOrdering Facility: [facility] Address: [address] [place] [address] Performed By: #### 5 7021-8 ####[facility] LABORATORYCLIA [id number] [address] [place] Platelet mean volume (Bld) [Entitic vol] 9.9 fL Normal 9.0-12.7 [facility] Comment on above: Order Comment: Speci men Type: BLOOD SPECIMENOrdering Facility: [facility] Address: [address] [place] [address] Performed By: #### 5 7021-8 ####[facility]ORATORYCLIA [id number] [address] [place] Platelets (Bld) [#/Vol] 335 10*3/uL Normal 150-400 [facility] Comment on above: Order Comment: Speci men Type: BLOOD SPECIMENOrdering Facility: [facility] Address: [address] [place] [address] Performed By: #### 5 7021-8 ####[facility] LABORATORYCLIA [id number] [address] [place] RBC (Bld) [#/Vol] 3.98 10*6/uL Low 4.20-6.00 [facility] Comment on above: Order Comment: Speci men Type: BLOOD SPECIMENOrdering Facility: [facility] Address: [address] [place] [address] Performed By: #### 5 7021-8 ####[facility]ORATORYCLIA [id number] [address] [place] WBC (Bld) [#/Vol] 12.55 10*3/uL High 3.70-11.00 [facility] Comment on above: Order Comment: Speci men Type: BLOOD SPECIMENOrdering Facility: [facility] Address: [address] [place] [address] Performed By: #### 5 7021-8 ####[facility]ORATORYCLIA [id number] [address] [place] CK CREATINE KINASEon 022 CK [Catalytic activity/Vol] 72 U/L Normal 51-298 [facility] Comment on above: Order Comment: Speci men Type: BLOOD SPECIMENOrdering Facility: [facility] Address: [address] [place] [address] Performed By: #### C K, 41957-8 ####[facility] LABORATORYCLIA [id number] [address] [place] CONSULT PROGon 07-08-2021 CONSULT PROG Normal [facility] CONSULT PROG Normal [facility] CSF MANUAL DIFFon 07-08-2021 DIF TTL, CSF 3 cells counted Normal [facility] Comment on above: Order Comment: Speci men Type: CEREBROSPINAL FLUIDOrdering Facility: [facility] Address: [address] [place] [address] Performed By: #### 3 4563-7, [id number] ####[facility]ORATORYCLIA [id number] [place] [address] [place] LYMPH%, CSF 33 % Low 50-90 [facility] Comment on above: Order Comment: Speci men Type: CEREBROSPINAL FLUIDOrdering Facility: [facility] Address: [address] [place] [address] Performed By: #### 3 4563-7, [id number] ####[facility]ORATORYCLIA [id number] [place] [address] [place] MONO%, CSF 67 % High 10-50 [facility] Comment on above: Order Comment: Speci men Type: CEREBROSPINAL FLUIDOrdering Facility: [facility] Address: [address] [place] [address] Performed By: #### 3 4563-7, [id number] ####[facility]ORATORYCLIA [id number] [address] [place] CT ABD/PEL W [...] Comment: Speci men Type: CEREBROSPINAL FLUIDOrdering Facility: [facility] Address: [address] [place] [address] Performed By: #### 3 4563-7, [id number] ####[facility] LABORATORYCLIA [id number] [address] [place] Clarity (Unsp spec) Clear Normal Clear [facility] Comment on above: Order Comment: Speci men Type: CEREBROSPINAL FLUIDOrdering Facility: [facility] Address: [address] [place] [address] Performed By: #### 3 4563-7, [id number] ####[facility] LABORATORYCLIA [id number] [address] [place] Color (CSF) Colorless Normal Colorless [facility] Comment on above: Order Comment: Speci men Type: CEREBROSPINAL FLUIDOrdering Facility: [facility] Address: [address] [address] Performed By: #### 3 4563-7, [id number] ####[facility] LABORATORYCLIA [id number] [address] [place] Color (Spun CSF) Colorless Normal Colorless [facility] Comment on above: Order Comment: Speci men Type: CEREBROSPINAL FLUIDOrdering Facility: [facility] Address: [facility] [address] Performed By: #### 3 4563-7, [id number] ####[facility]ORATORYCLIA [id number] [address] CSF TU[employer] Normal [facility] Comment on above: Order Comment: Speci men Type: CEREBROSPINAL FLUIDOrdering Facility: [facility] Address: [address] [place] [address] Performed By: #### 3 4563-7, [id number] ####[facility]ORATORYCLIA [id number] [address] RBC Manual cnt (CSF) [#/Vol] 94 cells/uL High 0-5 [facility] Comment on above: Order Comment: Speci men Type: CEREBROSPINAL FLUIDOrdering Facility: [facility] Address: [address] [place] [address] Performed By: #### 3 4563-7, [id number] ####[facility]ORATORYCLIA [id number] [address] WBC Manual cnt (CSF) [#/Vol] 1 cells/uL Normal 0-5 [facility] Comment on above: Order Comment: Speci men Type: CEREBROSPINAL FLUIDOrdering Facility: [facility] Address: [address] [place] [address] Performed By: #### 3 4563-7, [id number] ####[facility]ORATORYCLIA [id number] [address] Comprehensive metabolic 2000 panelon 07-08-2021 Albumin [Mass/Vol] 3.6 g/dL Low 3.9-4.9 [facility] Comment on above: Order Comment: Speci men Type: BLOOD SPECIMENOrdering Facility: [facility] Address: [address] [place] [address] Performed By: #### C K, 84927-9 ####[facility]ORATORYCLIA [id number] [address] [place] ALP [Catalytic activity/Vol] 125 U/L High 38-113 [facility] Comment on above: Order Comment: Speci men Type: BLOOD SPECIMENOrdering Facility: [facility] Address: [address] [address] Performed By: #### Eileen Valdivia, 85595-4 ####[facility]ORATORYCLIA [id number] [address] [place] ALT With P-5'-P [Catalytic activity/Vol] 24 U/L Normal 10-54 [facility] Comment on above: Order Comment: Speci men Type: BLOOD SPECIMENOrdering Facility: [facility] Address: [address] [place] [address] Performed By: #### Eileen Valdivia, 74146-8 ####[facility] LABORATORYCLIA [id number] [address] OF [facility] Anion gap [Moles/Vol] 16 mmol/L Normal 9-18 [facility] Comment on above: Order Comment: Speci men Type: BLOOD SPECIMENOrdering Facility: [facility] Address: [address] [place] [address] Performed By: #### Eileen Valdivia, 27650-6 ####[facility]ORATORYCLIA [id number] [address] AST With P-5'-P [Catalytic activity/Vol] 21 U/L Normal 14-40 [facility] Comment on above: Order Comment: Speci men Type: BLOOD SPECIMENOrdering Facility: [facility] Address: [address] [place] [address] Performed By: #### Eileen Valdivia, 96028-6 ####[facility]ATORYCLIA [id number] [address] [place] Bilirubin [Mass/Vol] 0.3 mg/dL Normal 0.2-1.3 [facility] Comment on above: Order Comment: Speci men Type: BLOOD SPECIMENOrdering Facility: [facility] Address: [address] [place] [address] Performed By: #### Eileen Valdivia, 92875-8 ####[facility]ORATORYCLIA [id number] [place] [address] [place] Calcium [Mass/Vol] 8.9 mg/dL Normal 8.5-10.2 [facility] Comment on above: Order Comment: Speci men Type: BLOOD SPECIMENOrdering Facility: [facility] Address: [address] [place] [address] Performed By: #### Eileen Valdivia, 40483-2 ####[facility] LABORATORYCLIA [id number] [place] [address] [place] Chloride [Moles/Vol] 96 mmol/L Low 97-105 [facility] Comment on above: Order Comment: Speci men Type: BLOOD SPECIMENOrdering Facility: [facility] Address: [address] [place] [address] Performed By: #### Eileen Valdivia, 12764-4 ####[facility]ORATORYCLIA [id number] [address] [place] CO2 [Moles/Vol] 27 mmol/L Normal 22-30 [facility] Comment on above: Order Comment: Speci men Type: BLOOD SPECIMENOrdering Facility: [facility] Address: [address] [place] [address] Performed By: #### Eileen Valdivia, 40667-5 ####[facility]ORATORYCLIA [id number] [place] [address] [place] Creatinine [Mass/Vol] 0.68 mg/dL Low 0.73-1.22 [facility] Comment on above: Order Comment: Speci men Type: BLOOD SPECIMENOrdering Facility: [facility] Address: [address] [place] [address] Performed By: #### Eileen Valdivia, 49261-5 ####[facility] LABORATORYCLIA [id number] [address] ESTIMATED GLOMERULAR FILTRATION RATE 101 mL/min/1.73m??? Normal >=60 [facility] Comment on above: Order Comment: Speci men Type: BLOOD SPECIMENOrdering Facility: [facility] [facility] Address: [address] [place] [address] Result Comment: Luzmaria mated Glomerular Filtration Rate [...] actual GFR. Performed By: #### Eileen Valdivia, 10212-0 ####[facility] LABORATORYCLIA [id number] [place] [address] [place] Glucose [Mass/Vol] 130 mg/dL High 74-99 [facility] Comment on above: Order Comment: Shira men Type: BLOOD SPECIMENOrdering Facility: [facility] Address: [address] [place] [address] Result Comment: The [place] Diabetes Association (ADA) provides guidance for cutoff [...] Standards of Medical Care in Diabetes 2016, [place] Diabetes Association. Diabetes Care. 2016.39(Suppl 1). Performed By: #### Eileen Valdivia, 43255-9 ####[facility] LABORATORYCLIA [id number] [place] [address] [place] Potassium [Moles/Vol] 3.9 mmol/L Normal 3.7-5.1 [facility] Comment on above: Order Comment: Shira feldman Type: BLOOD SPECIMENOrdering Facility: [facility] Address: [address] Performed By: #### Eileen Valdivia, 72799-9 ####[facility] LABORATORYCLIA [id number] [place] [address] Protein [Mass/Vol] 7.0 g/dL Normal 6.3-8.0 [facility] Comment on above: Order Comment: Speci men Type: BLOOD SPECIMENOrdering Facility: [facility] Address: [address] [place] [address] Performed By: #### C Skip, 58145-2 ####[facility]ORATORYCLIA [id number] [address] [facility] Sodium [Moles/Vol] 139 mmol/L Normal 136-144 [facility] Comment on above: Order Comment: Speci men Type: BLOOD SPECIMENOrdering Facility: [facility] Address: [address] [place] [address] Performed By: #### Eileen Vladivia, 33032-5 ####[facility] LABORATORYCLIA [id number] [address] [facility] Urea nitrogen [Mass/Vol] 16 mg/dL Normal 9-24 [facility] Comment on above: Order Comment: Speci men Type: BLOOD SPECIMENOrdering Facility: [facility] Address: [address] [place] [address] Performed By: #### Eileen Valdivia, 21569-4 ####[facility]ORATORYCLIA [id number] [address] OF [facility] ED NOTEon 07-08-2021 ED NOTE HNO ID: [id number] Author: Lenora James RN Service: Emergency Medicine Author Type: Registered Nurse Type: ED Notes Filed: 07/08/2021 5:03 PM Note Text: Pt to OR with surgical team Normal [facility] ED NOTE HNO ID: [id number] Author: Lenora James RN Service: Emergency Medicine Author Type: Registered Nurse Type: ED Notes Filed: 07/08/2021 4:50 PM Note Text: OR team to get pt Normal [facility] ED NOTE HNO ID: [id number] Author: Lenora James RN Service: Emergency Medicine Author Type: Registered Nurse Type: ED Notes Filed: 07/08/2021 4:50 PM Note Text: Normal [facility] ED NOTE HNO ID: [id number] Author: Lenora James RN Service: Emergency Medicine Author Type: Registered Nurse Type: ED Notes Filed: 07/08/2021 4:50 PM Note Text: Spoke with presurg; pt to go to OR now [facility] ED NOTE HNO ID: [id number] Author: Lenora James RN Service: Emergency Medicine Author Type: Registered Nurse Type: ED Notes Filed: 07/08/2021 4:12 PM Note Text: Neurosurgery at beside [facility] ED NOTE HNO ID: [id number] Author: Lenora James RN Service: Emergency Medicine Author Type: Registered Nurse Type: ED Notes Filed: 07/08/2021 2:35 PM Note Text: respiratory aware of pt breathing treatments [facility] ED NOTE HNO ID: [id number] Author: Lisa Woo RN Service: ? Author Type: Registered Nurse Type: ED Notes Filed: 07/08/2021 2:20 PM Note Text: Xray notified pt is ready. [facility] ED NOTE HNO ID: [id number] Author: Lenora James RN Service: Emergency Medicine Author Type: Registered Nurse Type: ED Notes Filed: 07/08/2021 12:14 PM Note Text: CT notified regarding imaging orders placed [facility] ED NOTE Normal [facility] ED PROV NOTEon 07-08-2021 ED PROV NOTE Normal [facility] Glucose CSF-mCncon 2 Glucose (CSF) [Mass/Vol] 88 mg/dL High 40-70 [facility] Comment on above: Order Comment: Speci men Type: CEREBROSPINAL FLUIDOrdering Facility: [facility] Address: [address] [place] [id number] Result Comment: Lumb ar CSF glucose values of healthy patients are approximately 60% of the plasma values and must always be compared with a concurrently measured plasma value for adequate clinical interpretation.References: 1. Glucose HK (GLUC3) [package insert V 12.0 Finnish]. [employer], [place], [place]. September 2015. 2. Michelle Moore, Michelle Manjarrez (2015). Chapter 7: Glucose and Lactate. Marianela Alcocer al.(eds.), Cerebrospinal Fluid in Clinical Neurology. [place]ickman: [employer]. Performed By: #### 2 880-3, 2342-4 ####[facility] LABORATORYCLIA [id number] [address] HIGH SENSITIVITY TROPONIN To n 07-08-2021 HIGH SENSITIVITY TAMIKO 27 ng/L High <12 [facility] Comment on above: Order Comment: Speci men Type: BLOOD SPECIMENOrdering Facility: [facility] Address: [address] [place] [address] Result Comment: When assessing risk for acute [...] day MACE. Performed By: #### H STNT ####[facility] LABORATORYIA [id number] [address] HIGH SENSITIVITY TAMIKO 36 ng/L High <12 [facility] Comment on above: Order Comment: Shira feldman Type: BLOOD SPECIMENOrdering Facility: [facility] Address: [address] [place] [address] Result Comment: When assessing risk for acute [...] day MACE. Performed By: #### H STNT ####[facility] LABORATORYIA [id number] [address] STATES OF [facility] HISTORY PHYSICALon HISTORY PHYSICAL Normal [facility] NURSING PROGon 07-08-2021 NURSING PROG Normal [facility] OPERATIVE NOon 07-08-2021 OPERATIVE NO Normal [facility] Prot CSF-mCncon 07-08-2021 Protein (CSF) [Mass/Vol] 33 mg/dL Normal 15-45 [facility] Comment on above: Order Comment: Speci men Type: CEREBROSPINAL FLUIDOrdering Facility: [facility] Address: [address] [place] [address] Performed By: #### 2 880-3, 2342-4 ####[facility]ORATORYCLIA [id number] [address] [place] SARS-CoV-2 RNA Resp Ql MEGAN+p robeon 07-08-2021 SARS-CoV-2 (COVID-19) RNA MEGAN+probe Ql (Resp) COVID 19 RESULT: SARS-CoV-2 (Agent of COVID-19) Not Detected by RT-PCR or equivalent method. This test has been authorized by FDA under an Emergency Use Authorization (EUA). Normal [facility] Comment on above: Performed By: #### 9 4500-6 ####[facility] LABORATORYCLIA [id number] [address] [place] STAPH AUREUS PCRon 2 S. aureus and MRSA panel MEGAN+probe (Nose) Normal Negative [facility] Comment on above: Order Comment: Speci men Type: SWAB OF INTERNAL NOSEOrdering Facility: [facility] Address: [address] [place] [address] Result Comment: Nega tive for Staphylococcus aureus by PCR.Negative for MRSA by PCR Performed By: #### S APCR ####[facility] LABORATORYCLIA [id number] [place] [address] [place] Urinalysis complete panel (U )on 07-08-2021 Bacteria LM.HPF (Urine sed) [#/Area] Few Abnormal None Seen [facility] Comment on above: Order Comment: Speci men Type: URINE SPECIMENOrdering Facility: [facility] Address: [address] [place] [address] Performed By: #### 2 4356-8 ####[facility] LABORATORYCLIA [id number] [facility] [address] Bilirubin Ql (U) Negative Normal Negative [facility] Comment on above: Order Comment: Speci men Type: URINE SPECIMENOrdering Facility: [facility] Address: [address] [place] [address] Performed By: #### 2 4356-8 ####[facility] LABORATORYCLIA [id number] [address] Clarity (Unsp spec) Turbid Abnormal Clear [facility] Comment on above: Order Comment: Speci men Type: URINE SPECIMENOrdering Facility: [facility] Address: [address] [place] [address] Performed By: #### 2 4356-8 ####[facility] LABORATORYCLIA [id number] [address] Color (U) Light Yellow Normal yellow [facility] Comment on above: Order Comment: Speci men Type: URINE SPECIMENOrdering Facility: [facility] Address: [address] [place] [address] Performed By: #### 2 4356-8 ####[facility]ORATORYCLIA [id number] [address] Glucose Test strip (U) [Mass/Vol] Negative Normal Negative [facility] Comment on above: Order Comment: Speci men Type: URINE SPECIMENOrdering Facility: [facility] Address: [address] [place] [address] Performed By: #### 2 4356-8 ####[facility]ORATORYCLIA [id number] [address] [facility] Hemoglobin Ql (U) Negative Normal Negative [facility] Comment on above: Order Comment: Speci men Type: URINE SPECIMENOrdering Facility: [facility] Address: [address] [place] [address] Performed By: #### 2 4356-8 ####[facility]ORATORYCLIA [id number] [address] [place] Hyaline casts (Urine sed) [#/Area] 1-3 /LPF Abnormal 0 /LPF [facility] Comment on above: Order Comment: Speci men Type: URINE SPECIMENOrdering Facility: [facility] Address: [address] [place] [address] Performed By: #### 2 4356-8 ####[facility]ATORYCLIA [id number] [address] [facility] Ketones Ql (U) Negative Normal Negative [facility] Comment on above: Order Comment: Speci men Type: URINE SPECIMENOrdering Facility: [facility] Address: [address] [place] [address] Performed By: #### 2 4356-8 ####[facility]ORATORYCLIA [id number] [address] Leukocyte esterase Test strip Ql (U) Negative Normal Negative [facility] Comment on above: Order Comment: Speci men Type: URINE SPECIMENOrdering Facility: [facility] Address: [address] [place] [address] Performed By: #### 2 4356-8 ####[facility] LABORATORYCLIA [id number] [address] [facility] Nitrite Ql (U) Negative Normal Negative [facility] Comment on above: Order Comment: Speci men Type: URINE SPECIMENOrdering Facility: [facility] Address: [address] [place] [address] Performed By: #### 2 4356-8 ####[facility]ORATORYCLIA [id number] [address] [place] pH (U) 5.0 [pH] Normal 5.0-8.0 [facility] Comment on above: Order Comment: Speci men Type: URINE SPECIMENOrdering Facility: [facility] Address: [address] [place] [address] Performed By: #### 2 4356-8 ####[facility]ORATORYCLIA [id number] [address] [place] Protein (U) [Mass/Vol] Negative Normal Negative [facility] Comment on above: Order Comment: Speci men Type: URINE SPECIMENOrdering Facility: [facility] Address: [address] [place] [address] Performed By: #### 2 4356-8 ####[facility]ORATORYCLIA [id number] [address] [facility] RBC LM.HPF (Urine sed) [#/Area] 11-25 /HPF Abnormal 0-3 /HPF [facility] Comment on above: Order Comment: Speci men Type: URINE SPECIMENOrdering Facility: [facility] Address: [address] [place] [address] Performed By: #### 2 4356-8 ####[facility] [id number] [address] Specific gravity (U) [Rel density] 1.018 Normal 1.005-1.030 [facility] Comment on above: Order Comment: Speci men Type: URINE SPECIMENOrdering Facility: [facility] Address: [address] [place] [address] Performed By: #### 2 4356-8 ####[facility]ORATORYCLIA [id number] [address] Urobilinogen Ql (U) Normal Normal Negative [facility] Comment on above: Order Comment: Speci men Type: URINE SPECIMENOrdering Facility: [facility] Address: [address] [place] [address] Performed By: #### 2 4356-8 ####[facility]ORATORYCLIA [id number] [address] WBC LM.HPF (Urine sed) [#/Area] /[HPF] Abnormal 0-5 /HPF [facility] Comment on above: Order Comment: Speci men Type: URINE SPECIMENOrdering Facility: [facility] Address: [address] [place] [address] Performed By: #### 2 4356-8 ####[facility] LABORATORYCLIA [id number] [place] [address] [facility] Vancomycin random [Mass/Vol] on 07-08-2021 Vancomycin [Mass/Vol] 31.0 ug/mL High 10.0-20.0 [facility] Comment on above: Order Comment: Speci men Type: BLOOD SPECIMENOrdering Facility: [facility] Address: [facility] [address] [place] [id number] Result Comment: Refe rence ranges and high/low indicator flags are provided as general guidelines only. The treating physician must determine appropriate target levels/dosing based on the specific clinical situation. Performed By: #### 4 091-5 ####[facility]ORATORYCLIA [id number] [address] XR ABD 2V SUPINE W UPR/DECUB [...] Hospital HISTORY PHYSICALon HISTORY PHYSICAL HNO ID: [id number] Author: Amy Beltran MD Service: ? Author Type: Physician Type: HANDP Filed: 06/30/2021 6:42 PM Note Text: Connected Care Unit History and Physical Facility: [facility] Level of Care: Skilled Admission Date: June [...] regarding the above plan. Total time spent [id number] and/or counseling and coordinating care on the skilled care unit for patient was approximately 45 minutes SUBJECTIVE (HISTORY) Chief Complaint: Confusion, infection, blood clot. Andrew Sifuentes is being seen today for custodial facility (SNF) admission AND management of weakness, tube feed, infected retroperitoneal infection and seizure. HPI: This is a 71 year old male who presents from [facility] with primary admitting diagnosis of Seizure, [...] CT brain concerning for hydrocephalus. Tip of BEVELER shunt was found to be in the [...] Code Status: (more content not included)... Normal [facility] Basic metabolic 2000 panelon 06-28-2021 Anion gap [Moles/Vol] 7 mmol/L Low 9-[address] [facility] Comment on above: Order Comment: Speci men Type: BLOOD SPECIMENOrdering Facility: [facility] Address: [address] Performed By: #### 2 4320-2, ####[facility]ORATORYCLIA [id number] [place] [address] [place] Calcium [Mass/Vol] 8.8 mg/dL Normal 8.5-10.2 [facility] Comment on above: Order Comment: Speci men Type: BLOOD SPECIMENOrdering Facility: [facility] Address: [address] [place] [address] Performed By: #### 2 4320-06, ####[facility] LABORATORYCLIA [id number] [place] [address] [place] Chloride [Moles/Vol] 103 mmol/L Normal 97-105 [facility] Comment on above: Order Comment: Speci men Type: BLOOD SPECIMENOrdering Facility: [facility] Address: [address] [place] [address] Performed By: #### 2 4320-06, ####[facility]ORATORYCLIA [id number] [place] [address] [place] CO2 [Moles/Vol] 28 mmol/L Normal 22-30 [facility] Comment on above: Order Comment: Speci men Type: BLOOD SPECIMENOrdering Facility: [facility] Address: [address] [place] [address] Performed By: #### 2 4320-06, ####[facility]ORATORYCLIA [id number] [place] [address] [place] Creatinine [Mass/Vol] 0.57 mg/dL Low 0.73-1.22 [facility] Comment on above: Order Comment: Speci men Type: BLOOD SPECIMENOrdering Facility: [facility] Address: [address] [place] [address] Performed By: #### 2 2, ####[facility]ORATORYCLIA [id number] [place] [address] [place] GFR/1.73 sq M.predicted MDRD (S/P/Bld) [Vol rate/Area] mL/min/{1.73_m2} Normal [facility] Comment on above: Order Comment: Shira feldman Type: BLOOD SPECIMENOrdering Facility: [facility] Address: [address] [id number] Result Comment: >60e GFR (Estimated GFR) Units [...] actual GFR. Performed By: #### 2 4321-2, 67502-8 ####[facility]ORATORYCLIA [id number] [address] OF [facility] Glucose [Mass/Vol] 120 mg/dL High 74-99 [facility] Comment on above: Order Comment: Shira feldman Type: BLOOD SPECIMENOrdering Facility: [facility] Address: [address] [place], [place] [phone] Result Comment: The [place] Diabetes Association (ADA) provides guidance for cutoff [...] Standards of Medical Care in Diabetes 2016, [place] [employer]. Diabetes Care. 2016.39(Suppl 1). Performed By: #### 2 4321-2, 00758-7 ####[facility]ORATORYCLIA [id number] [address] [place] Potassium [Moles/Vol] 3.8 mmol/L Normal 3.7-5.1 [facility] Comment on above: Order Comment: Speci men Type: BLOOD SPECIMENOrdering Facility: [facility] Address: [address] [place] [address] Performed By: #### 2 4321-2, ####[facility]ORATORYCLIA [id number] [address] [place] Sodium [Moles/Vol] 138 mmol/L Normal 136-144 [facility] Comment on above: Order Comment: Speci men Type: BLOOD SPECIMENOrdering Facility: [facility] Address: [address] [place] [address] Performed By: #### 2 4321-2, ####[facility]ORATORYCLIA [id number] [address] STATES OF [facility] Urea nitrogen [Mass/Vol] 24 mg/dL Normal 9-24 [facility] Comment on above: Order Comment: Speci men Type: BLOOD SPECIMENOrdering Facility: [facility] Address: [address] [place] [address] Performed By: #### 2 4321-2, ####[facility]ORATORYCLIA [id number] [address] [place] CASE MANAGEMon 06-28-2021 CASE MANAGEM Normal [facility] CBC panel Auto (Bld)on 06-28 Erythrocyte distribution width (RBC) [Ratio] 15.6 % High 11.5-15.0 [facility] Comment on above: Order Comment: Speci men Type: BLOOD SPECIMENOrdering Facility: [facility] Address: [address] [place] [address] Performed By: #### 5 8410-2 ####[facility]ORATORYCLIA [id number] [address] [place] Hematocrit (Bld) [Volume fraction] 30.5 % Low 39.0-51.0 [facility] Comment on above: Order Comment: Speci men Type: BLOOD SPECIMENOrdering Facility: [facility] Address: [address] [place] [address] Performed By: #### 5 8410-2 ####[facility]ATORYCLIA [id number] [address] STATES OF [facility] Hemoglobin (Bld) [Mass/Vol] 9.4 g/dL Low 13.0-17.0 [facility] Comment on above: Order Comment: Speci men Type: BLOOD SPECIMENOrdering Facility: [facility] Address: [address] [place] [address] Performed By: #### 5 8410-2 ####[facility]ORATORYCLIA [id number] [address] STATES OF [facility] MCH (RBC) [Entitic mass] 27.8 pg Normal 26.0-34.0 [facility] Comment on above: Order Comment: Speci men Type: BLOOD SPECIMENOrdering Facility: [facility] Address: [address] [place] [address] Performed By: #### 5 8410-2 ####[facility]ORATORYCLIA [id number] [address] MCHC (RBC) [Mass/Vol] 30.8 g/dL Normal 30.5-36.0 [facility] Comment on above: Order Comment: Speci men Type: BLOOD SPECIMENOrdering Facility: [facility] Address: [address] [place] [address] Performed By: #### 5 8410-2 ####[facility]ORATORYCLIA [id number] [address] [place] MCV (RBC) [Entitic vol] 90.2 fL Normal 80.0-100.0 [facility] Comment on above: Order Comment: Speci men Type: BLOOD SPECIMENOrdering Facility: [facility] Address: [address] [place] [address] Performed By: #### 5 8410-2 ####[facility]ORATORYCLIA [id number] [address] [place] Nucleated RBC (Bld) [#/Vol] 10*3/uL Normal <0.01 [facility] Comment on above: Order Comment: Speci men Type: BLOOD SPECIMENOrdering Facility: [facility] Address: [address] [place] [address] Performed By: #### 5 8410-2 ####[facility]ORATORYCLIA [id number] [address] [place] Platelet mean volume (Bld) [Entitic vol] 9.9 fL Normal 9.0-12.7 [facility] Comment on above: Order Comment: Speci men Type: BLOOD SPECIMENOrdering Facility: [facility] Address: [address] [place] [address] Performed By: #### 5 8410-2 ####[facility]ORATORYCLIA [id number] [address] [place] Platelets (Bld) [#/Vol] 333 10*3/uL Normal 150-400 [facility] Comment on above: Order Comment: Speci men Type: BLOOD SPECIMENOrdering Facility: [facility] Address: [address] [place] [address] Performed By: #### 5 8410-2 ####[facility]ORATORYCLIA [id number] [address] [place] RBC (Bld) [#/Vol] 3.38 10*6/uL Low 4.20-6.00 [facility] Comment on above: Order Comment: Speci men Type: BLOOD SPECIMENOrdering Facility: [facility] Address: [address] [place] [address] Performed By: #### 5 8410-2 ####[facility]ORATORYCLIA [id number] [address] [place] WBC (Bld) [#/Vol] 9.71 10*3/uL Normal 3.70-11.00 [facility] Comment on above: Order Comment: Speci men Type: BLOOD SPECIMENOrdering Facility: [facility] Address: [address] [place] [address] Performed By: #### 5 8410-2 ####[facility]ORATORYCLIA [id number] [address] CNDSon 06-28-2021 CNDS Normal [facility] CONSULT PROGon 06-28-2021 CONSULT PROG Normal [facility] Magnesium SerPl-mCncon 06-28 Magnesium [Mass/Vol] 2.2 mg/dL Normal 1.7-2.3 [facility] Comment on above: Order Comment: Speci men Type: BLOOD SPECIMENOrdering Facility: [facility] Address: [address] [place] [address] Performed By: #### 2 4321-2, ####[facility]ORATORYCLIA [id number] [address] Vancomycin random [Mass/Vol] on 06-28-2021 Vancomycin [Mass/Vol] 23.0 ug/mL High 10.0-20.[address] [facility] Comment on above: Order Comment: Speci men Type: BLOOD SPECIMENOrdering Facility: [facility] Address: [address] [place] [address] Result Comment: Refe rence ranges and high/low indicator flags are provided as general guidelines only. The treating physician must determine appropriate target levels/dosing based on the specific clinical situation. Performed By: #### 4 091-5 ####[facility]ORATORYCLIA [id number] [address] [place] ALLIED HEALTHon 06-27-2021 ALLIED HEALTH Normal [facility] Basic metabolic 2000 panelon 06-27-2021 Anion gap [Moles/Vol] 10 mmol/L Normal 9-[address] Comment on above: Order Comment: Speci men Type: BLOOD SPECIMENOrdering Facility: [facility] Address: [address] [place] [address] Performed By: #### 2 4320-2, ####[facility] LABORATORYCLIA [id number] [place] [address] [place] Calcium [Mass/Vol] 8.8 mg/dL Normal 8.5-10.2 [facility] Comment on above: Order Comment: Speci men Type: BLOOD SPECIMENOrdering Facility: [facility] Address: [address] [place] [address] Performed By: #### 2 2, ####[facility] LABORATORYCLIA [id number] [place] [address] [place] Chloride [Moles/Vol] 104 mmol/L Normal 97-105 [facility] Comment on above: Order Comment: Speci men Type: BLOOD SPECIMENOrdering Facility: [facility] Address: [address] [place] [address] Performed By: #### 2 4320-06, ####[facility] LABORATORYCLIA [id number] [address] [place] CO2 [Moles/Vol] 26 mmol/L Normal 22-30 [facility] Comment on above: Order Comment: Speci men Type: BLOOD SPECIMENOrdering Facility: [facility] Address: [address] [place] [address] Performed By: #### 2 4320-06, ####[facility] LABORATORYCLIA [id number] [place] [address] [place] Creatinine [Mass/Vol] 0.57 mg/dL Low 0.73-1.22 [facility] Comment on above: Order Comment: Speci men Type: BLOOD SPECIMENOrdering Facility: [facility] Address: [address] [place] [address] Performed By: #### 2 2, ####[facility] LABORATORYCLIA [id number] [place] [address] [place] GFR/1.73 sq M.predicted MDRD (S/P/Bld) [Vol rate/Area] mL/min/{1.73_m2} Normal [facility] Comment on above: Order Comment: Shira feldman Type: BLOOD SPECIMENOrdering Facility: [facility] Address: [address] [id number] Result Comment: >60e GFR (Estimated GFR) Units [...] actual GFR. Performed By: #### 2 4321-2, 21077-7 ####[facility] LABORATORYCLIA [id number] [place] [address] [place] Glucose [Mass/Vol] 133 mg/dL High 74-99 [facility] Comment on above: Order Comment: Shira feldman Type: BLOOD SPECIMENOrdering Facility: [facility] Address: [address] [place] [address] Result Comment: The [place] Diabetes Association (ADA) provides guidance for cutoff [...] Standards of Medical Care in Diabetes 2016, [place] [employer]. Diabetes Care. 2016.39(Suppl 1). Performed By: #### 2 4321-2, 80965-7 ####[facility]ORATORYCLIA [id number] [place] [address] [place] Potassium [Moles/Vol] 4.2 mmol/L Normal 3.7-5.1 [facility] Comment on above: Order Comment: Speci men Type: BLOOD SPECIMENOrdering Facility: [facility] Address: [address] [place] [address] Performed By: #### 2 4321-2, ####[facility]ORATORYCLIA [id number] [address] [place] [facility] Sodium [Moles/Vol] 140 mmol/L Normal 136-144 [facility] Comment on above: Order Comment: Speci men Type: BLOOD SPECIMENOrdering Facility: [facility] Address: [address] [place] [address] Performed By: #### 2 4321-2, ####[facility] LABORATORYCLIA [id number] [address] STATES OF [facility] Urea nitrogen [Mass/Vol] 24 mg/dL Normal 9-24 [facility] Comment on above: Order Comment: Speci men Type: BLOOD SPECIMENOrdering Facility: [facility] Address: [address] [place] [address] Performed By: #### 2 4321-2, ####[facility] LABORATORYCLIA [id number] [address] CASE MANAGEMon 06-27-2021 CASE MANAGEM Normal [facility] CBC panel Auto (Bld)on 06-27 Erythrocyte distribution width (RBC) [Ratio] 15.8 % High 11.5-15.0 [facility] Comment on above: Order Comment: Speci men Type: BLOOD SPECIMENOrdering Facility: [facility] Address: [address] [place] [address] Performed By: #### 5 8410-2 ####[facility] LABORATORYCLIA [id number] [address] Hematocrit (Bld) [Volume fraction] 31.4 % Low 39.0-51.0 [facility] Comment on above: Order Comment: Speci men Type: BLOOD SPECIMENOrdering Facility: [facility] Address: [address] [place] [address] Performed By: #### 5 8410-2 ####[facility] LABORATORYCLIA [id number] [address] Hemoglobin (Bld) [Mass/Vol] 9.3 g/dL Low 13.0-17.0 [facility] Comment on above: Order Comment: Speci men Type: BLOOD SPECIMENOrdering Facility: [facility] Address: [address] [place] [address] Performed By: #### 5 8410-2 ####[facility] LABORATORYCLIA [id number] [address] MCH (RBC) [Entitic mass] 27.0 pg Normal 26.0-34.0 [facility] Comment on above: Order Comment: Speci men Type: BLOOD SPECIMENOrdering Facility: [facility] Address: [address] [place] [address] Performed By: #### 5 8410-2 ####[facility] LABORATORYCLIA [id number] [address] MCHC (RBC) [Mass/Vol] 29.6 g/dL Low 30.5-36.0 [facility] Comment on above: Order Comment: Speci men Type: BLOOD SPECIMENOrdering Facility: [facility] Address: [address] [place] [address] Performed By: #### 5 8410-2 ####[facility] LABORATORYCLIA [id number] [address] [place] [facility] MCV (RBC) [Entitic vol] 91.3 fL Normal 80.0-100.0 [facility] Comment on above: Order Comment: Speci men Type: BLOOD SPECIMENOrdering Facility: [facility] Address: [address] [place] [address] Performed By: #### 5 8410-2 ####[facility] LABORATORYCLIA [id number] [address] Nucleated RBC (Bld) [#/Vol] 10*3/uL Normal <0.01 [facility] Comment on above: Order Comment: Speci men Type: BLOOD SPECIMENOrdering Facility: [facility] Address: [address] [place] [address] Performed By: #### 5 8410-2 ####[facility] LABORATORYCLIA [id number] [place] [address] [place] Platelet mean volume (Bld) [Entitic vol] 10.3 fL Normal 9.0-12.7 [facility] Comment on above: Order Comment: Speci men Type: BLOOD SPECIMENOrdering Facility: [facility] Address: [address] [place] [address] Performed By: #### 5 8410-2 ####[facility] LABORATORYCLIA [id number] [address] [place] Platelets (Bld) [#/Vol] 359 10*3/uL Normal 150-400 [facility] Comment on above: Order Comment: Speci men Type: BLOOD SPECIMENOrdering Facility: [facility] Address: [address] [place] [address] Performed By: #### 5 8410-2 ####[facility]ORATORYCLIA [id number] [place] [address] [place] RBC (Bld) [#/Vol] 3.44 10*6/uL Low 4.20-6.00 [facility] Comment on above: Order Comment: Speci men Type: BLOOD SPECIMENOrdering Facility: [facility] Address: [address] [place] [address] Performed By: #### 5 8410-2 ####[facility] LABORATORYCLIA [id number] [place] [address] [place] WBC (Bld) [#/Vol] 10.73 10*3/uL Normal 3.70-11.00 [facility] Comment on above: Order Comment: Speci men Type: BLOOD SPECIMENOrdering Facility: [facility] Address: [address] [place] [address] Performed By: #### 5 8410-2 ####[facility]ORATORYCLIA [id number] [place] [address] [place] Magnesium [facility] Magnesium [Mass/Vol] 2.2 mg/dL Normal 1.7-2.3 [facility] Comment on above: Order Comment: Speci men Type: BLOOD SPECIMENOrdering Facility: [facility] Address: [address] [place] [address] Performed By: #### 2 4321-2, 87064-0 ####[facility]ORATORYCLIA [id number] [address] [place] NT-[facility]BNP [facility]on [facility]27 Natriuretic peptide.B prohormone N-Terminal [Mass/Vol] 184 pg/mL High <125 [facility] Comment on above: Order Comment: Speci men Type: BLOOD SPECIMENOrdering Facility: [facility] Address: [address] [place] [address] Performed By: #### 3 3762-6 ####[facility]ORATORYCLIA [id number] [place] [address] [place] NUTRITIONon 06-27-2021 NUTRITION [...] Comment: Speci men Type: BLOOD SPECIMENOrdering Facility: [facility] Address: [address] [place] [address] Performed By: #### 1 9123-9, 67768-0 ####[facility]ORATORYCLIA [id number] [address] [place] Calcium [Mass/Vol] 8.7 mg/dL Normal 8.5-10.2 [facility] Comment on above: Order Comment: Speci men Type: BLOOD SPECIMENOrdering Facility: [facility] Address: [address] [place] [address] Performed By: #### 1 9123-9, 11646-3 ####[facility]ORATORYCLIA [id number] [place] [address] [place] Chloride [Moles/Vol] 105 mmol/L Normal 97-105 [facility] Comment on above: Order Comment: Speci men Type: BLOOD SPECIMENOrdering Facility: [facility] Address: [address] [place] [address] Performed By: #### 1 9123-9, 35233-0 ####[facility]ORATORYCLIA [id number] [place] [address] [place] CO2 [Moles/Vol] 26 mmol/L Normal 22-30 [facility] Comment on above: Order Comment: Speci men Type: BLOOD SPECIMENOrdering Facility: [facility] Address: [address] [place] [address] Performed By: #### 1 9123-9, 67590-7 ####[facility]ORATORYCLIA [id number] [place] [address] [place] Creatinine [Mass/Vol] 0.56 mg/dL Low 0.73-1.22 [facility] Comment on above: Order Comment: Speci men Type: BLOOD SPECIMENOrdering Facility: [facility] Address: [address] [place] [address] Performed By: #### 1 9123-9, 18180-7 ####[facility]ORATORYCLIA [id number] [place] [address] [place] GFR/1.73 sq M.predicted MDRD (S/P/Bld) [Vol rate/Area] mL/min/{1.73_m2} Normal [facility] Comment on above: Order Comment: Speci men Type: BLOOD SPECIMENOrdering Facility: [facility] Address: [address] [id number] Result Comment: >60e GFR (Estimated GFR) Units [...] actual GFR. Performed By: #### 1 9123-9, 83063-9 ####[facility]ITALCLIA [id number] [place] [address] [place] Glucose [Mass/Vol] 134 mg/dL High 74-99 [facility] Comment on above: Order Comment: Shira feldman Type: BLOOD SPECIMENOrdering Facility: [facility] Address: [address] [place] [address] Result Comment: The [place] Diabetes [employer] (ADA) provides guidance for cutoff [...] Standards of Medical Care in Diabetes 2016, [place] [employer]. Diabetes Care. 2016.39(Suppl 1). Performed By: #### 1 9123-9, 60530-8 ####[facility] LABORATORYCLIA [id number] [place] [address] [place] Potassium [Moles/Vol] 3.8 mmol/L Normal 3.7-5.1 [facility] Comment on above: Order Comment: Shira feldman Type: BLOOD SPECIMENOrdering Facility: [facility] Address: [address] [place] [address] Performed By: #### 1 9123-9, 31722-0 ####[facility]ORATORYCLIA [id number] [address] Sodium [Moles/Vol] 140 mmol/L Normal 136-144 [facility] Comment on above: Order Comment: Speci men Type: BLOOD SPECIMENOrdering Facility: [facility] Address: [address] [place] [address] Performed By: #### 1 9123-9, 47315-6 ####[facility] LABORATORYCLIA [id number] [address] [place] Urea nitrogen [Mass/Vol] 24 mg/dL Normal 9-24 [facility] Comment on above: Order Comment: Speci men Type: BLOOD SPECIMENOrdering Facility: [facility] Address: [address] [place] [address] Performed By: #### 1 91239, 28004-8 ####[facility]ORATORYCLIA [id number] [address] [place] [facility] CBC panel Auto (Bld)on 06-26 Erythrocyte distribution width (RBC) [Ratio] 15.9 % High 11.5-15.0 [facility] Comment on above: Order Comment: Speci men Type: BLOOD SPECIMENOrdering Facility: [facility] Address: [address] [place] [address] Performed By: #### 5 8410-2 ####[facility] LABORATORYCLIA [id number] [address] Hematocrit (Bld) [Volume fraction] 29.8 % Low 39.0-51.0 [facility] Comment on above: Order Comment: Speci men Type: BLOOD SPECIMENOrdering Facility: [facility] Address: [address] [place] [address] Performed By: #### 5 8410-2 ####[facility] LABORATORYCLIA [id number] [place] [address] [place] Hemoglobin (Bld) [Mass/Vol] 9.1 g/dL Low 13.0-17.0 [facility] Comment on above: Order Comment: Speci men Type: BLOOD SPECIMENOrdering Facility: [facility] Address: [address] [place] [address] Performed By: #### 5 8410-2 ####[facility] LABORATORYCLIA [id number] [address] MCH (RBC) [Entitic mass] 27.8 pg Normal 26.0-34.0 [facility] Comment on above: Order Comment: Speci men Type: BLOOD SPECIMENOrdering Facility: [facility] Address: [address] [place] [address] Performed By: #### 5 8410-2 ####[facility] LABORATORYCLIA [id number] [address] OF [facility] MCHC (RBC) [Mass/Vol] 30.5 g/dL Normal 30.5-36.0 [facility] Comment on above: Order Comment: Speci men Type: BLOOD SPECIMENOrdering Facility: [facility] Address: [address] [place] [address] Performed By: #### 5 8410-2 ####[facility] LABORATORYCLIA [id number] [address] MCV (RBC) [Entitic vol] 91.1 fL Normal 80.0-100.0 [facility] Comment on above: Order Comment: Speci men Type: BLOOD SPECIMENOrdering Facility: [facility] Address: [address] [place] [address] Performed By: #### 5 8410-2 ####[facility]ORATORYCLIA [id number] [address] Nucleated RBC (Bld) [#/Vol] 10*3/uL Normal <0.01 [facility] Comment on above: Order Comment: Speci men Type: BLOOD SPECIMENOrdering Facility: [facility] Address: [address] [place] [address] Performed By: #### 5 8410-2 ####[facility]ORATORYCLIA [id number] [address] Platelet mean volume (Bld) [Entitic vol] 10.3 fL Normal 9.0-12.7 [facility] Comment on above: Order Comment: Speci men Type: BLOOD SPECIMENOrdering Facility: [facility] Address: [address] [place] [address] Performed By: #### 5 8410-2 ####[facility] LABORATORYCLIA [id number] [address] [place] Platelets (Bld) [#/Vol] 336 10*3/uL Normal 150-400 [facility] Comment on above: Order Comment: Speci men Type: BLOOD SPECIMENOrdering Facility: [facility] Address: [address] [place] [address] Performed By: #### 5 8410-2 ####[facility] LABORATORYCLIA [id number] [address] [place] RBC (Bld) [#/Vol] 3.27 10*6/uL Low 4.20-6.00 [facility] Comment on above: Order Comment: Speci men Type: BLOOD SPECIMENOrdering Facility: [facility] Address: [address] [place] [address] Performed By: #### 5 8410-2 ####[facility] LABORATORYCLIA [id number] [address] [place] WBC (Bld) [#/Vol] 9.14 10*3/uL Normal 3.70-11.00 [facility] Comment on above: Order Comment: Speci men Type: BLOOD SPECIMENOrdering Facility: [facility] Address: [address] [place] [address] Performed By: #### 5 8410-2 ####[facility] LABORATORYCLIA [id number] [address] OF [facility] CONSULT PROGon 06-26-2021 CONSULT PROG Normal [facility] Magnesium SerPl-mCncon 06-26 Magnesium [Mass/Vol] 2.2 mg/dL Normal 1.7-2.3 [facility] Comment on above: Order Comment: Speci men Type: BLOOD SPECIMENOrdering Facility: [facility] Address: [address] [place] [address] Performed By: #### 1 9123-9, 24032-9 ####[facility] LABORATORYCLIA [id number] [address] OF [facility] NURSING PROGon 06-26-2021 NURSING PROG Normal [facility] NURSING PROG Normal [facility] Basic metabolic 2000 panelon 06-25-2021 Anion gap [Moles/Vol] 8 mmol/L Low 9-18 [facility] Comment on above: Order Comment: Speci men Type: BLOOD SPECIMENOrdering Facility: [facility] Address: [address] [place] [address] Performed By: #### 2 432-2, ####[facility]ORATORYCLIA [id number] [place] [address] [place] Calcium [Mass/Vol] 8.8 mg/dL Normal 8.5-10.2 [facility] Comment on above: Order Comment: Speci men Type: BLOOD SPECIMENOrdering Facility: [facility] Address: [address] [place] [address] Performed By: #### 2 432-2, ####[facility]ORATORYCLIA [id number] [place] [address] [place] Chloride [Moles/Vol] 105 mmol/L Normal 97-105 [facility] Comment on above: Order Comment: Speci men Type: BLOOD SPECIMENOrdering Facility: [facility] Address: [address] [place] [address] Performed By: #### 2 432-2, ####[facility]ORATORYCLIA [id number] [place] [address] [place] CO2 [Moles/Vol] 27 mmol/L Normal 22-30 [facility] Comment on above: Order Comment: Speci men Type: BLOOD SPECIMENOrdering Facility: [facility] Address: [address] [place] [address] Performed By: #### 2 432-, ####[facility] LABORATORYCLIA [id number] [place] [id number] [place] Creatinine [Mass/Vol] 0.59 mg/dL Low 0.73-1.22 [facility] Comment on above: Order Comment: Speci men Type: BLOOD SPECIMENOrdering Facility: [facility] Address: [address] [place] [address] Performed By: #### 2 43205-08, ####[facility]ORATORYCLIA [id number] [address] [place] GFR/1.73 sq M.predicted MDRD (S/P/Bld) [Vol rate/Area] mL/min/{1.73_m2} Normal [facility] Comment on above: Order Comment: Speci men Type: BLOOD SPECIMENOrdering Facility: [facility] Address: [address] [place] [address] Result Comment: >60e GFR (Estimated GFR) Units [...] actual GFR. Performed By: #### 2 43205-08, ####[facility] LABORATORYCLIA [id number] [place] [address] [place] Glucose [Mass/Vol] 132 mg/dL High 74-99 [facility] Comment on above: Order Comment: Speci men Type: BLOOD SPECIMENOrdering Facility: [facility] Address: [address] [place], [place] [id number] Result Comment: The [place] Diabetes Association (ADA) provides guidance for cutoff [...] Standards of Medical Care in Diabetes 2016, [place] [employer]. Diabetes Care. 2016.39(Suppl 1). Performed By: #### 2 4320-06, ####[facility] LABORATORYCLIA [id number] [place] [address] [place] Potassium [Moles/Vol] 3.9 mmol/L Normal 3.7-5.1 [facility] Comment on above: Order Comment: Johni men Type: BLOOD SPECIMENOrdering Facility: [facility] Address: [address] [place] [address] Performed By: #### 2 4320-06, ####[facility] LABORATORYCLIA [id number] [place] [address] [place] Sodium [Moles/Vol] 140 mmol/L Normal 136-144 [facility] Comment on above: Order Comment: Speci men Type: BLOOD SPECIMENOrdering Facility: [facility] Address: [address] Performed By: #### 2 4320-06, ####[facility] LABORATORYCLIA [id number] [place] [address] [place] Urea nitrogen [Mass/Vol] 24 mg/dL Normal 9-24 [facility] Comment on above: Order Comment: Speci men Type: BLOOD SPECIMENOrdering Facility: [facility] Address: [address] [place] [address] Performed By: #### 2 4321-2, 74489-4 ####[facility] LABORATORYCLIA [id number] [address] [place] CASE MANAGEMon 06-25-2021 CASE MANAGEM Normal [facility] CBC panel Auto (Bld)on 06-25 Erythrocyte distribution width (RBC) [Ratio] 15.9 % High 11.5-15.0 [facility] Comment on above: Order Comment: Speci men Type: BLOOD SPECIMENOrdering Facility: [facility] Address: [address] [place] [address] Performed By: #### 5 8410-2 ####[facility] LABORATORYCLIA [id number] [address] [place] Hematocrit (Bld) [Volume fraction] 31.0 % Low 39.0-51.0 [facility] Comment on above: Order Comment: Speci men Type: BLOOD SPECIMENOrdering Facility: [facility] Address: [address] [place] [address] Performed By: #### 5 8410-2 ####[facility] LABORATORYCLIA [id number] [address] [place] [facility] Hemoglobin (Bld) [Mass/Vol] 9.4 g/dL Low 13.0-17.0 [facility] Comment on above: Order Comment: Speci men Type: BLOOD SPECIMENOrdering Facility: [facility] Address: [address] [place] [address] Performed By: #### 5 8410-2 ####[facility] LABORATORYCLIA [id number] [address] [place] MCH (RBC) [Entitic mass] 28.1 pg Normal 26.0-34.0 [facility] Comment on above: Order Comment: Speci men Type: BLOOD SPECIMENOrdering Facility: [facility] Address: [address] [place] [address] Performed By: #### 5 8410-2 ####[facility]ITALCLIA [id number] [address] [facility] MCHC (RBC) [Mass/Vol] 30.3 g/dL Low 30.5-36.0 [facility] Comment on above: Order Comment: Speci men Type: BLOOD SPECIMENOrdering Facility: [facility] Address: [address] [place] [address] Performed By: #### 5 8410-2 ####[facility] LABORATORYCLIA [id number] [address] MCV (RBC) [Entitic vol] 92.5 fL Normal 80.0-100.0 [facility] Comment on above: Order Comment: Speci men Type: BLOOD SPECIMENOrdering Facility: [facility] Address: [address] [place] [address] Performed By: #### 5 8410-2 ####[facility] LABORATORYCLIA [id number] [address] Nucleated RBC (Bld) [#/Vol] 10*3/uL Normal <0.01 [facility] Comment on above: Order Comment: Speci men Type: BLOOD SPECIMENOrdering Facility: [facility] Address: [address] [place] [address] Performed By: #### 5 8410-2 ####[facility] LABORATORYCLIA [id number] [address] [place] Platelet mean volume (Bld) [Entitic vol] 10.5 fL Normal 9.0-12.7 [facility] Comment on above: Order Comment: Speci men Type: BLOOD SPECIMENOrdering Facility: [facility] Address: [address] [place] [address] Performed By: #### 5 8410-2 ####[facility] LABORATORYCLIA [id number] [address] [place] Platelets (Bld) [#/Vol] 311 10*3/uL Normal 150-400 [facility] Comment on above: Order Comment: Speci men Type: BLOOD SPECIMENOrdering Facility: [facility] Address: [address] [place] [address] Performed By: #### 5 8410-2 ####[facility] LABORATORYCLIA [id number] [address] OF [facility] RBC (Bld) [#/Vol] 3.35 10*6/uL Low 4.20-6.00 [facility] Comment on above: Order Comment: Speci men Type: BLOOD SPECIMENOrdering Facility: [facility] Address: [address] [place] [address] Performed By: #### 5 8410-2 ####[facility] LABORATORYCLIA [id number] [address] WBC (Bld) [#/Vol] 9.57 10*3/uL Normal 3.70-11.00 [facility] Comment on above: Order Comment: Speci men Type: BLOOD SPECIMENOrdering Facility: [facility] Address: [address] [place] [address] Performed By: #### 5 8410-2 ####[facility] LABORATORYCLIA [id number] [address] Magnesium SerPl-mCncon 06-25 Magnesium [Mass/Vol] 2.4 mg/dL High 1.7-2.3 [facility] Comment on above: Order Comment: Speci men Type: BLOOD SPECIMENOrdering Facility: [facility] Address: [address] [place] [address] Performed By: #### 2 4321-2, 28826-8 ####[facility] LABORATORYCLIA [id number] [address] Basic metabolic 2000 panelon 06-24-2021 Anion gap [Moles/Vol] 9 mmol/L Normal -18 [facility] Comment on above: Order Comment: Speci men Type: BLOOD SPECIMENOrdering Facility: [facility] Address: [address] [place] [address] Performed By: #### 1 9123-9, 50675-8 ####[facility] LABORATORYCLIA [id number] [place] [address] [place] Calcium [Mass/Vol] 8.6 mg/dL Normal 8.5-10.2 [facility] Comment on above: Order Comment: Speci men Type: BLOOD SPECIMENOrdering Facility: [facility] Address: [address] [place] [address] Performed By: #### 1 9123-9, 91747-3 ####[facility] LABORATORYCLIA [id number] [place] [address] [place] Chloride [Moles/Vol] 103 mmol/L Normal 97-105 [facility] Comment on above: Order Comment: Speci men Type: BLOOD SPECIMENOrdering Facility: [facility] Address: [address] [place] [address] Performed By: #### 1 239, 59011-9 ####[facility] LABORATORYCLIA [id number] [place] [address] [place] CO2 [Moles/Vol] 26 mmol/L Normal 22-30 [facility] Comment on above: Order Comment: Speci men Type: BLOOD SPECIMENOrdering Facility: [facility] Address: [address] [place] [address] Performed By: #### 1 91239, ####[facility] LABORATORYCLIA [id number] [place] [address] [place] Creatinine [Mass/Vol] 0.60 mg/dL Low 0.73-1.22 [facility] Comment on above: Order Comment: Speci men Type: BLOOD SPECIMENOrdering Facility: [facility] Address: [address] [place] [address] Performed By: #### 1 9123-9, 33200-3 ####[facility] LABORATORYCLIA [id number] [place] [address] [place] GFR/1.73 sq M.predicted MDRD (S/P/Bld) [Vol rate/Area] mL/min/{1.73_m2} Normal [facility] Comment on above: Order Comment: Shira feldman Type: BLOOD SPECIMENOrdering Facility: [facility] Address: [address] [place] [address] Result Comment: >60e GFR (Estimated GFR) Units [...] actual GFR. Performed By: #### 1 9123-9, 97256-8 ####[facility] LABORATORYCLIA [id number] [place] [address] [place] Glucose [Mass/Vol] 126 mg/dL High 74-99 [facility] Comment on above: Order Comment: Shira feldman Type: BLOOD SPECIMENOrdering Facility: [facility] Address: [place] [id number] Result Comment: The [place] Diabetes Association (ADA) provides guidance for cutoff [...] Standards of Medical Care in Diabetes 2016, [place] [employer]. Diabetes Care. 2016.39(Suppl 1). Performed By: #### 1 9123-9, 12200-3 ####[facility] LABORATORYCLIA [id number] [place] [address] [place] Potassium [Moles/Vol] 3.9 mmol/L Normal 3.7-5.1 [facility] Comment on above: Order Comment: Speci men Type: BLOOD SPECIMENOrdering Facility: [facility] Address: [address] [place] [address] Performed By: #### 1 9123-9, 94880-6 ####[facility] LABORATORYCLIA [id number] [place] [address] [place] Sodium [Moles/Vol] 138 mmol/L Normal 136-144 [facility] Comment on above: Order Comment: Speci men Type: BLOOD SPECIMENOrdering Facility: [facility] Address: [address] [place] [address] Performed By: #### 1 9123-9, 48873-7 ####[facility] LABORATORYCLIA [id number] [address] [place] Urea nitrogen [Mass/Vol] 24 mg/dL Normal 9-24 [facility] Comment on above: Order Comment: Speci men Type: BLOOD SPECIMENOrdering Facility: [facility] Address: [address] [place] [address] Performed By: #### 1 9123-9, ####[facility] LABORATORYCLIA [id number] [address] [place] CASE MANAGEMon 06-24-2021 CASE MANAGEM Normal [facility] CASE MANAGEM Normal [facility] CASE MANAGEM Normal [facility] CBC panel Auto (Bld)on 06-24 Erythrocyte distribution width (RBC) [Ratio] 16.1 % High 11.5-15.0 [facility] Comment on above: Order Comment: Speci men Type: BLOOD SPECIMENOrdering Facility: [facility] Address: [address] [place] [address] Performed By: #### 5 8410-2 ####[facility] LABORATORYCLIA [id number] [place] [address] [place] Hematocrit (Bld) [Volume fraction] 31.7 % Low 39.0-51.0 [facility] Comment on above: Order Comment: Speci men Type: BLOOD SPECIMENOrdering Facility: [facility] Address: [address] [place] [address] Performed By: #### 5 8410-2 ####[facility] LABORATORYCLIA [id number] [address] OF [facility] Hemoglobin (Bld) [Mass/Vol] 9.7 g/dL Low 13.0-17.0 [facility] Comment on above: Order Comment: Speci men Type: BLOOD SPECIMENOrdering Facility: [facility] Address: [address] [place] [address] Performed By: #### 5 8410-2 ####[facility] LABORATORYCLIA [id number] [address] STATES OF [facility] MCH (RBC) [Entitic mass] 28.0 pg Normal 26.0-34.0 [facility] Comment on above: Order Comment: Speci men Type: BLOOD SPECIMENOrdering Facility: [facility] Address: [address] [place] [address] Performed By: #### 5 8410-2 ####[facility] LABORATORYCLIA [id number] [address] MCHC (RBC) [Mass/Vol] 30.6 g/dL Normal 30.5-36.0 [facility] Comment on above: Order Comment: Speci men Type: BLOOD SPECIMENOrdering Facility: [facility] Address: [address] [place] [address] Performed By: #### 5 8410-2 ####[facility] LABORATORYCLIA [id number] [address] MCV (RBC) [Entitic vol] 91.4 fL Normal 80.0-100.0 [facility] Comment on above: Order Comment: Speci men Type: BLOOD SPECIMENOrdering Facility: [facility] Address: [address] [place] [address] Performed By: #### 5 8410-2 ####[facility] LABORATORYCLIA [id number] [address] [place] Nucleated RBC (Bld) [#/Vol] 10*3/uL Normal <0.01 [facility] Comment on above: Order Comment: Speci men Type: BLOOD SPECIMENOrdering Facility: [facility] Address: [address] [place] [address] Performed By: #### 5 8410-2 ####[facility] LABORATORYCLIA [id number] [address] [place] Platelet mean volume (Bld) [Entitic vol] 11.0 fL Normal 9.0-12.7 [facility] Comment on above: Order Comment: Speci men Type: BLOOD SPECIMENOrdering Facility: [facility] Address: [address] [place] [address] Performed By: #### 5 8410-2 ####[facility] LABORATORYCLIA [id number] [address] Platelets (Bld) [#/Vol] 358 10*3/uL Normal 150-400 [facility] Comment on above: Order Comment: Speci men Type: BLOOD SPECIMENOrdering Facility: [facility] Address: [address] [place] [address] Performed By: #### 5 8410-2 ####[facility] LABORATORYCLIA [id number] [address] [place] RBC (Bld) [#/Vol] 3.47 10*6/uL Low 4.20-6.00 [facility] Comment on above: Order Comment: Speci men Type: BLOOD SPECIMENOrdering Facility: [facility] Address: [address] [place] [address] Performed By: #### 5 8410-2 ####[facility] LABORATORYCLIA [id number] [address] [place] WBC (Bld) [#/Vol] 10.07 10*3/uL Normal 3.70-11.00 [facility] Comment on above: Order Comment: Speci men Type: BLOOD SPECIMENOrdering Facility: [facility] Address: [address] [place] [address] Performed By: #### 5 8410-2 ####[facility] LABORATORYCLIA [id number] [place] [address] [place] Magnesium SerPl-mCncon 06-24 Magnesium [Mass/Vol] 2.3 mg/dL Normal 1.7-2.3 [facility] Comment on above: Order Comment: Speci men Type: BLOOD SPECIMENOrdering Facility: [facility] Address: [address] [place] [address] Performed By: #### 1 9123-9, 22918-4 ####[facility] LABORATORYCLIA [id number] [place] [address] [place] ALLIED HEALTHon 06-23-2021 ALLIED HEALTH Normal [facility] Basic metabolic 2000 panelon 06-23-2021 Anion gap [Moles/Vol] 9 mmol/L Normal 9-18 [facility] Comment on above: Order Comment: Speci men Type: BLOOD SPECIMENOrdering Facility: [facility] Address: [address] [place] [address] Performed By: #### 1 9123-9, 43092-8 ####[facility] LABORATORYCLIA [id number] [place] [address] [place] Calcium [Mass/Vol] 8.4 mg/dL Low 8.5-10.2 [facility] Comment on above: Order Comment: Speci men Type: BLOOD SPECIMENOrdering Facility: [facility] Address: [address] [place] [address] Performed By: #### 1 9123-9, 06753-6 ####[facility] LABORATORYCLIA [id number] [place] [address] [place] Chloride [Moles/Vol] 104 mmol/L Normal 97-105 [facility] Comment on above: Order Comment: Speci men Type: BLOOD SPECIMENOrdering Facility: [facility] Address: [address] [place], [place] [address] [address] Performed By: #### 1 9123-9, 69016-5 ####[facility] LABORATORYCLIA [id number] [address] STATES OF [facility] CO2 [Moles/Vol] 26 mmol/L Normal 22-30 [facility] Comment on above: Order Comment: Speci men Type: BLOOD SPECIMENOrdering Facility: [facility] Address: [address] [place] [address] Performed By: #### 1 9123-9, 46182-7 ####[facility] LABORATORYCLIA [id number] [address] [place] Creatinine [Mass/Vol] 0.62 mg/dL Low 0.73-1.22 [facility] Comment on above: Order Comment: Speci men Type: BLOOD SPECIMENOrdering Facility: [facility] Address: [address] [place] [address] Performed By: #### 1 9123-9, 37522-2 ####[facility] LABORATORYCLIA [id number] [address] [place] GFR/1.73 sq M.predicted MDRD (S/P/Bld) [Vol rate/Area] mL/min/{1.73_m2} Normal [facility] Comment on above: Order Comment: Speci men Type: BLOOD SPECIMENOrdering Facility: [facility] Address: [address] [place] [address] Result Comment: >60e GFR (Estimated GFR) Units [...] actual GFR. Performed By: #### 1 9123-9, 95574-1 ####[facility] LABORATORYCLIA [id number] [place] [address] [place] Glucose [Mass/Vol] 111 mg/dL High 74-99 [facility] Comment on above: Order Comment: Speci men Type: BLOOD SPECIMENOrdering Facility: [facility] Address: [address] [place] [address] Result Comment: The [place] [employer] (ADA) provides guidance for cutoff [...] Standards of Medical Care in Diabetes 2016, [place] [employer]. Diabetes Care. 2016.39(Suppl 1). Performed By: #### 1 9123-9, 87570-9 ####[facility] LABORATORYCLIA [id number] [place] [address] [place] Potassium [Moles/Vol] 4.1 mmol/L Normal 3.7-5.1 [facility] Comment on above: Order Comment: Speci men Type: BLOOD SPECIMENOrdering Facility: [facility] Address: [address] [place] [address] Performed By: #### 1 9123-9, 19484-6 ####[facility] LABORATORYCLIA [id number] [place] [address] [place] Sodium [Moles/Vol] 139 mmol/L Normal 136-144 [facility] Comment on above: Order Comment: Speci men Type: BLOOD SPECIMENOrdering Facility: [facility] Address: [address] [place] [address] Performed By: #### 1 9123-9-2 ####[facility] LABORATORYCLIA [id number] [place] [address] [place] Urea nitrogen [Mass/Vol] 26 mg/dL High 9-24 [facility] Comment on above: Order Comment: Speci men Type: BLOOD SPECIMENOrdering Facility: [facility] Address: [address] [place] [address] Performed By: #### 1 9123-9, 00048-8 ####[facility] LABORATORYCLIA [id number] [address] OF [facility] CASE MANAGEMon 06-23-2021 CASE MANAGEM Normal [facility] CBC panel Auto (Bld)on 06-23 Erythrocyte distribution width (RBC) [Ratio] 16.0 % High 11.5-15.0 [facility] Comment on above: Order Comment: Speci men Type: BLOOD SPECIMENOrdering Facility: [facility] Address: [address] [place] [address] Performed By: #### 5 8410-2 ####[facility] LABORATORYCLIA [id number] [address] STATES OF [facility] Hematocrit (Bld) [Volume fraction] 31.1 % Low 39.0-51.0 [facility] Comment on above: Order Comment: Speci men Type: BLOOD SPECIMENOrdering Facility: [facility] Address: [address] [place] [address] Performed By: #### 5 8410-2 ####[facility] LABORATORYCLIA [id number] [place] [address] [place] Hemoglobin (Bld) [Mass/Vol] 9.5 g/dL Low 13.0-17.0 [facility] Comment on above: Order Comment: Speci men Type: BLOOD SPECIMENOrdering Facility: [facility] Address: [address] [place] [address] Performed By: #### 5 8410-2 ####[facility] LABORATORYCLIA [id number] [place] [address] [place] MCH (RBC) [Entitic mass] 28.1 pg Normal 26.0-34.0 [facility] Comment on above: Order Comment: Speci men Type: BLOOD SPECIMENOrdering Facility: [facility] Address: [address] [place] [address] Performed By: #### 5 8410-2 ####[facility] LABORATORYCLIA [id number] [address] MCHC (RBC) [Mass/Vol] 30.5 g/dL Normal 30.5-36.0 [facility] Comment on above: Order Comment: Speci men Type: BLOOD SPECIMENOrdering Facility: [facility] Address: [address] [place] [address] Performed By: #### 5 8410-2 ####[facility] LABORATORYCLIA [id number] [address] MCV (RBC) [Entitic vol] 92.0 fL Normal 80.0-100.0 [facility] Comment on above: Order Comment: Speci men Type: BLOOD SPECIMENOrdering Facility: [facility] Address: [address] [place] [address] Performed By: #### 5 8410-2 ####[facility] LABORATORYCLIA [id number] [address] Nucleated RBC (Bld) [#/Vol] 10*3/uL Normal <0.01 [facility] Comment on above: Order Comment: Speci men Type: BLOOD SPECIMENOrdering Facility: [facility] Address: [address] [place] [address] Performed By: #### 5 8410-2 ####[facility] LABORATORYCLIA [id number] [address] Platelet mean volume (Bld) [Entitic vol] 11.0 fL Normal 9.0-12.7 [facility] Comment on above: Order Comment: Speci men Type: BLOOD SPECIMENOrdering Facility: [facility] Address: [address] [place] [address] Performed By: #### 5 8410-2 ####[facility] LABORATORYCLIA [id number] [place] [address] [place] Platelets (Bld) [#/Vol] 361 10*3/uL Normal 150-400 [facility] Comment on above: Order Comment: Speci men Type: BLOOD SPECIMENOrdering Facility: [facility] Address: [address] [place] [address] Performed By: #### 5 8410-2 ####[facility] LABORATORYCLIA [id number] [place] [address] [place] RBC (Bld) [#/Vol] 3.38 10*6/uL Low 4.20-6.00 [facility] Comment on above: Order Comment: Speci men Type: BLOOD SPECIMENOrdering Facility: [facility] Address: [address] [place] [address] Performed By: #### 5 8410-2 ####[facility] LABORATORYCLIA [id number] [address] OF [facility] WBC (Bld) [#/Vol] 9.02 10*3/uL Normal 3.70-11.00 [facility] Comment on above: Order Comment: Speci men Type: BLOOD SPECIMENOrdering Facility: [facility] Address: [address] [place] [address] Performed By: #### 5 8410-2 ####[facility] LABORATORYCLIA [id number] [address] [place] CONSULT PROGon 06-23-2021 CONSULT PROG Normal [facility] CONSULT PROG Normal [facility] Magnesium SerPl-mCncon 06-23 Magnesium [Mass/Vol] 2.4 mg/dL High 1.7-2.3 [facility] Comment on above: Order Comment: Speci men Type: BLOOD SPECIMENOrdering Facility: [facility] Address: [address] [place] [address] Performed By: #### 1 9123-9, 34226-4 ####[facility] LABORATORYCLIA [id number] [address] [place] THERAPY NTon 06-23-2021 THERAPY NT Normal [facility] Vancomycin random [Mass/Vol] on 06-23-2021 Vancomycin [Mass/Vol] 22.8 ug/mL High 10.0-20.0 [facility] Comment on above: Order Comment: Speci men Type: BLOOD SPECIMENOrdering Facility: [facility] Address: [address] [place] [address] Result Comment: Refe rence ranges and high/low indicator flags are provided as general guidelines only. The treating physician must determine appropriate target levels/dosing based on the specific clinical situation. Performed By: #### 4 091-5 ####[facility] LABORATORYCLIA [id number] [address] [place] XR MOD BARIUM SWALLOW W SPEE Lore 06-23-2021 XR MOD BARIUM SWALLOW W SPEECH Normal [facility] Basic metabolic 2000 panelon 06-22-2021 Anion gap [Moles/Vol] 6 mmol/L Low 9-18 [facility] Comment on above: Order Comment: Speci men Type: BLOOD SPECIMENOrdering Facility: [facility] Address: [address] [place] [address] Performed By: #### 2 4321-2, 64049-8 ####[facility] LABORATORYCLIA [id number] [place] [address] [place] Calcium [Mass/Vol] 8.5 mg/dL Normal 8.5-10.2 [facility] Comment on above: Order Comment: Speci men Type: BLOOD SPECIMENOrdering Facility: [facility] Address: [address] [place] [address] Performed By: #### 2 4321-2, ####[facility] LABORATORYCLIA [id number] [place] [address] [place] Chloride [Moles/Vol] 105 mmol/L Normal 97-105 [facility] Comment on above: Order Comment: Speci men Type: BLOOD SPECIMENOrdering Facility: [facility] Address: [address] [place], [place] [address] [address] Performed By: #### 2 4321-2, ####[facility] LABORATORYCLIA [id number] [address] [place] CO2 [Moles/Vol] 26 mmol/L Normal 22-30 [facility] Comment on above: Order Comment: Speci men Type: BLOOD SPECIMENOrdering Facility: [facility] Address: [address] [place] [address] Performed By: #### 2 43205-08, ####[facility] LABORATORYCLIA [id number] [address] [place] Creatinine [Mass/Vol] 0.56 mg/dL Low 0.73-1.22 [facility] Comment on above: Order Comment: Speci men Type: BLOOD SPECIMENOrdering Facility: [facility] Address: [address] [place] [address] Performed By: #### 2 43205-08, ####[facility] LABORATORYCLIA [id number] [address] [place] GFR/1.73 sq M.predicted MDRD (S/P/Bld) [Vol rate/Area] mL/min/{1.73_m2} Normal [facility] Comment on above: Order Comment: Speci men Type: BLOOD SPECIMENOrdering Facility: [facility] Address: [address] [place] [address] Result Comment: >60e GFR (Estimated GFR) Units [...] reflect actual GFR. Performed By: #### 2 ####[facility] LABORATORYCLIA [id number] [place] [address] [place] Glucose [Mass/Vol] 120 mg/dL High 74-99 [facility] Comment on above: Order Comment: Speci men Type: BLOOD SPECIMENOrdering Facility: [facility] Address: [address] [place] [address] Result Comment: The [place] [employer] (ADA) provides guidance for cutoff [...] Standards of Medical Care in Diabetes 2016, [place] [employer]. Diabetes Care. 2016.39(Suppl 1). Performed By: #### 2 ####[facility] LABORATORYCLIA [id number] [place] [address] [place] Potassium [Moles/Vol] 4.0 mmol/L Normal 3.7-5.1 [facility] Comment on above: Order Comment: Speci men Type: BLOOD SPECIMENOrdering Facility: [facility] Address: [address] [place], [place] [id number] Performed By: #### 2 ####[facility] LABORATORYCLIA [id number] [place] [id number] [place] Sodium [Moles/Vol] 137 mmol/L Normal 136-144 [facility] Comment on above: Order Comment: Speci men Type: BLOOD SPECIMENOrdering Facility: [facility] Address: [address] [place], [place] [address] Performed By: #### 2 ####[facility] LABORATORYCLIA [id number] [address] [place] Urea nitrogen [Mass/Vol] 25 mg/dL High 9-24 [facility] Comment on above: Order Comment: Speci men Type: BLOOD SPECIMENOrdering Facility: [facility] Address: [address] [place] [address] Performed By: #### 2 4321-2, 89137-8 ####[facility] LABORATORYCLIA [id number] [address] [place] CASE MANAGEMon 06-22-2021 CASE MANAGEM Normal [facility] CBC panel Auto (Bld)on 06-22 Erythrocyte distribution width (RBC) [Ratio] 16.0 % High 11.5-15.0 [facility] Comment on above: Order Comment: Speci men Type: BLOOD SPECIMENOrdering Facility: [facility] Address: [address] [place] [address] Performed By: #### 5 8410-2 ####[facility] LABORATORYCLIA [id number] [address] [place] Hematocrit (Bld) [Volume fraction] 30.5 % Low 39.0-51.0 [facility] Comment on above: Order Comment: Speci men Type: BLOOD SPECIMENOrdering Facility: [facility] [facility] Address: [address] [place] [address] Performed By: #### 5 8410-2 ####[facility] LABORATORYCLIA [id number] [address] [place] Hemoglobin (Bld) [Mass/Vol] 9.3 g/dL Low 13.0-17.0 [facility] Comment on above: Order Comment: Speci men Type: BLOOD SPECIMENOrdering Facility: [facility] Address: [address] [place] [address] Performed By: #### 5 8410-2 ####[facility] LABORATORYCLIA [id number] [address] [place] MCH (RBC) [Entitic mass] 28.4 pg Normal 26.0-34.0 [facility] Comment on above: Order Comment: Speci men Type: BLOOD SPECIMENOrdering Facility: [facility] Address: [address] [place] [address] Performed By: #### 5 8410-2 ####[facility] LABORATORYCLIA [id number] [address] MCHC (RBC) [Mass/Vol] 30.5 g/dL Normal 30.5-36.0 [facility] Comment on above: Order Comment: Speci men Type: BLOOD SPECIMENOrdering Facility: [facility] Address: [address] [place] [address] Performed By: #### 5 8410-2 ####[facility] LABORATORYCLIA [id number] [address] MCV (RBC) [Entitic vol] 93.3 fL Normal 80.0-100.0 [facility] Comment on above: Order Comment: Speci men Type: BLOOD SPECIMENOrdering Facility: [facility] Address: [address] [place] [address] Performed By: #### 5 8410-2 ####[facility] LABORATORYCLIA [id number] [address] Nucleated RBC (Bld) [#/Vol] 10*3/uL Normal <0.01 [facility] Comment on above: Order Comment: Speci men Type: BLOOD SPECIMENOrdering Facility: [facility] Address: [address] [place] [address] Performed By: #### 5 8410-2 ####[facility] LABORATORYCLIA [id number] [address] Platelet mean volume (Bld) [Entitic vol] 11.5 fL Normal 9.0-12.7 [facility] Comment on above: Order Comment: Speci men Type: BLOOD SPECIMENOrdering Facility: [facility] Address: [address] [place] [address] Performed By: #### 5 8410-2 ####[facility] [id number] [address] [place] Platelets (Bld) [#/Vol] 346 10*3/uL Normal 150-400 [facility] Comment on above: Order Comment: Speci men Type: BLOOD SPECIMENOrdering Facility: [facility] Address: [address] [place] [address] Performed By: #### 5 8410-2 ####[facility]ORATORYCLIA [id number] [address] [place] RBC (Bld) [#/Vol] 3.27 10*6/uL Low 4.20-6.00 [facility] Comment on above: Order Comment: Speci men Type: BLOOD SPECIMENOrdering Facility: [facility] Address: [address] [place] [address] Performed By: #### 5 8410-2 ####[facility]ITALCLIA [id number] [address] OF [facility] WBC (Bld) [#/Vol] 9.44 10*3/uL Normal 3.70-11.00 [facility] Comment on above: Order Comment: Speci men Type: BLOOD SPECIMENOrdering Facility: [facility] Address: [address] [place] [address] Performed By: #### 5 8410-2 ####[facility]ORATORYCLIA [id number] [address] [place] HEMOGLOBIN (HGB)on Hemoglobin (Bld) [Mass/Vol] 9.7 g/dL Low 13.0-17.0 [facility] Comment on above: Order Comment: Speci men Type: BLOOD SPECIMENOrdering Facility: [facility] Address: [address] [place] [address] Performed By: #### H GB ####[facility] LABORATORYCLIA [id number] [address] [place] Magnesium SerPl-mCncon 06-22 Magnesium [Mass/Vol] 2.4 mg/dL High 1.7-2.3 [facility] Comment on above: Order Comment: Speci men Type: BLOOD SPECIMENOrdering Facility: [facility] Address: [address] [place] [address] Performed By: #### 2 4321-2, ####[facility] LABORATORYCLIA [id number] [address] OF [facility] THERAPY NTon 06-22-2021 THERAPY NT Normal [facility] THERAPY NT Normal [facility] aPTT PPPon 06-22-2021 aPTT Coag (PPP) [Time] 62.3 s High 23.0-32.4 [facility] Comment on above: Order Comment: Speci men Type: BLOOD SPECIMENOrdering Facility: [facility] Address: [address] [place] [address] Performed By: #### 1 4979-9 ####[facility]ORATORYCLIA [id number] [address] [place] ALLIED HEALTHon 06-21-2021 ALLIED HEALTH Normal [facility] Basic metabolic 2000 panelon 06-21-2021 Anion gap [Moles/Vol] 8 mmol/L Low 9-18 [facility] Comment on above: Order Comment: Speci men Type: BLOOD SPECIMENOrdering Facility: [facility] Address: [address] [place] [address] Performed By: #### 2 4321-2, ####[facility] LABORATORYCLIA [id number] [place] [address] [place] Calcium [Mass/Vol] 8.2 mg/dL Low 8.5-10.2 [facility] Comment on above: Order Comment: Speci men Type: BLOOD SPECIMENOrdering Facility: [facility] Address: [address] [place] [address] Performed By: #### 2 4321-2, ####[facility] LABORATORYCLIA [id number] [place] [address] [place] Chloride [Moles/Vol] 108 mmol/L High 97-105 [facility] Comment on above: Order Comment: Speci men Type: BLOOD SPECIMENOrdering Facility: [facility] Address: [address] [address] Performed By: #### 2 4321-2, ####[facility]ORATORYCLIA [id number] [place] [address] [place] CO2 [Moles/Vol] 24 mmol/L Normal 22-30 [facility] Comment on above: Order Comment: Speci men Type: BLOOD SPECIMENOrdering Facility: [facility] Address: [address] [place] [address] Performed By: #### 2 43205-08, ####[facility]ORATORYCLIA [id number] [address] [place] Creatinine [Mass/Vol] 0.61 mg/dL Low 0.73-1.22 [facility] Comment on above: Order Comment: Speci men Type: BLOOD SPECIMENOrdering Facility: [facility] Address: [address] [place] [address] Performed By: #### 2 43205-08, ####[facility]ORATORYCLIA [id number] [address] [place] GFR/1.73 sq M.predicted MDRD (S/P/Bld) [Vol rate/Area] mL/min/{1.73_m2} Normal [facility] Comment on above: Order Comment: Speci men Type: BLOOD SPECIMENOrdering Facility: [facility] Address: [address] [place] [address] Result Comment: >60e GFR (Estimated GFR) Units [...] actual GFR. Performed By: #### 2 4321-, 68397-3 ####[facility]ORATORYCLIA [id number] [place] [address] [place] Glucose [Mass/Vol] 211 mg/dL High 74-99 [facility] Comment on above: Order Comment: Shira feldman Type: BLOOD SPECIMENOrdering Facility: [facility] Address: [address] [id number] Result Comment: The [place] [employer] (ADA) provides guidance for cutoff [...] Standards of Medical Care in Diabetes 2016, [place] [employer]. Diabetes Care. 2016.39(Suppl 1). Performed By: #### 2 432-, ####[facility]ORATORYCLIA [id number] [place] [address] [place] Potassium [Moles/Vol] 4.3 mmol/L Normal 3.7-5.1 [facility] Comment on above: Order Comment: Shira feldman Type: BLOOD SPECIMENOrdering Facility: [facility] Address: [address] [phone] Performed By: #### 2 432-, ####[facility]ORATORYCLIA [id number] [place] [address] [place] Sodium [Moles/Vol] 140 mmol/L Normal 136-144 [facility] Comment on above: Order Comment: Shira feldman Type: BLOOD SPECIMENOrdering Facility: [facility] Address: [address] [address] Performed By: #### 2 4321-2, ####[facility]ORATORYCLIA [id number] [address] [place] [facility] Urea nitrogen [Mass/Vol] 26 mg/dL High 9-24 [facility] Comment on above: Order Comment: Speci men Type: BLOOD SPECIMENOrdering Facility: [facility] Address: [address] [place] [address] Performed By: #### 2 4321-2, ####[facility]ORATORYCLIA [id number] [address] CBC panel Auto (Bld)on 06-21 Erythrocyte distribution width (RBC) [Ratio] 16.1 % High 11.5-15.0 [facility] Comment on above: Order Comment: Speci men Type: BLOOD SPECIMENOrdering Facility: [facility] Address: [address] [place] [address] Performed By: #### 5 8410-2 ####[facility]ORATORYCLIA [id number] [address] Hematocrit (Bld) [Volume fraction] 29.7 % Low 39.0-51.0 [facility] Comment on above: Order Comment: Speci men Type: BLOOD SPECIMENOrdering Facility: [facility] Address: [address] [place] [address] Performed By: #### 5 8410-2 ####[facility]ORATORYCLIA [id number] [address] STATES OF [facility] Hemoglobin (Bld) [Mass/Vol] 9.2 g/dL Low 13.0-17.0 [facility] Comment on above: Order Comment: Speci men Type: BLOOD SPECIMENOrdering Facility: [facility] Address: [address] [place] [address] Performed By: #### 5 8410-2 ####[facility]ORATORYCLIA [id number] [place] [address] MCH (RBC) [Entitic mass] 28.8 pg Normal 26.0-34.0 [facility] Comment on above: Order Comment: Speci men Type: BLOOD SPECIMENOrdering Facility: [facility] Address: [address] [place] [address] Performed By: #### 5 8410-2 ####[facility]ORATORYCLIA [id number] [address] MCHC (RBC) [Mass/Vol] 31.0 g/dL Normal 30.5-36.0 [facility] Comment on above: Order Comment: Speci men Type: BLOOD SPECIMENOrdering Facility: [facility] Address: [address] [place] [address] Performed By: #### 5 8410-2 ####[facility]ORATORYCLIA [id number] [address] MCV (RBC) [Entitic vol] 93.1 fL Normal 80.0-100.0 [facility] Comment on above: Order Comment: Speci men Type: BLOOD SPECIMENOrdering Facility: [facility] Address: [address] [place] [address] Performed By: #### 5 8410-2 ####[facility]ORATORYCLIA [id number] [address] Nucleated RBC (Bld) [#/Vol] 10*3/uL Normal <0.01 [facility] Comment on above: Order Comment: Speci men Type: BLOOD SPECIMENOrdering Facility: [facility] Address: [address] [place] [address] Performed By: #### 5 8410-2 ####[facility]ORATORYCLIA [id number] [address] Platelet mean volume (Bld) [Entitic vol] 11.6 fL Normal 9.0-12.7 [facility] Comment on above: Order Comment: Speci men Type: BLOOD SPECIMENOrdering Facility: [facility] Address: [address] [place] [address] Performed By: #### 5 8410-2 ####[facility]ORATORYCLIA [id number] [address] OF [facility] Platelets (Bld) [#/Vol] 347 10*3/uL Normal 150-400 [facility] Comment on above: Order Comment: Speci men Type: BLOOD SPECIMENOrdering Facility: [facility] Address: [address] [place] [address] Performed By: #### 5 8410-2 ####[facility]ORATORYCLIA [id number] [address] [place] RBC (Bld) [#/Vol] 3.19 10*6/uL Low 4.20-6.00 [facility] Comment on above: Order Comment: Speci men Type: BLOOD SPECIMENOrdering Facility: [facility] Address: [address] [place] [address] Performed By: #### 5 8410-2 ####[facility]ORATORYCLIA [id number] [address] OF [facility] WBC (Bld) [#/Vol] 10.29 10*3/uL Normal 3.70-11.00 [facility] Comment on above: Order Comment: Speci men Type: BLOOD SPECIMENOrdering Facility: [facility] Address: [address] [place] [address] Performed By: #### 5 8410-2 ####[facility]ATORYCLIA [id number] [address] CONSULT PROGon 06-21-2021 CONSULT PROG Normal [facility] CONSULT PROG Normal [facility] Magnesium SerPl-mCncon 06-21 Magnesium [Mass/Vol] 2.5 mg/dL High 1.7-2.3 [facility] Comment on above: Order Comment: Speci men Type: BLOOD SPECIMENOrdering Facility: [facility] Address: [address] [place] [address] Performed By: #### 2 4321-2, 33943-9 ####[facility]ORATORYCLIA [id number] [place] [address] [place] NUTRITIONon 06-21-2021 NUTRITION Normal [facility] XR CHEST 1V FRONTALon 2021 XR CHEST 1V FRONTAL Normal [facility] aPTT PPPon 06-21-2021 aPTT Coag (PPP) [Time] 68.5 s High 23.0-32.4 [facility] Comment on above: Order Comment: Speci men Type: BLOOD SPECIMENOrdering Facility: [facility] Address: [address] [place] [address] Performed By: #### 1 4979-9 ####[facility]ORATORYCLIA [id number] [address] STATES OF [facility] aPTT Coag (PPP) [Time] 57.8 s High 23.0-32.4 [facility] Comment on above: Order Comment: Speci men Type: BLOOD SPECIMENOrdering Facility: [facility] Address: [address] [place] [address] Performed By: #### 1 4979-9 ####[facility]ORATORYCLIA [id number] [place] [address] [place] Basic metabolic 2000 panelon 06-20-2021 Anion gap [Moles/Vol] 9 mmol/L Normal 9-18 [facility] Comment on above: Order Comment: Speci men Type: BLOOD SPECIMENOrdering Facility: [facility] Address: [address] [place] [address] Performed By: #### 2 4321-2, 52603-6 ####[facility]ORATORYCLIA [id number] [address] [place] Calcium [Mass/Vol] 8.3 mg/dL Low 8.5-10.2 [facility] Comment on above: Order Comment: Speci men Type: BLOOD SPECIMENOrdering Facility: [facility] Address: [address] [place] [address] Performed By: #### 2 432-2, ####[facility]ATORYCLIA [id number] [place] [address] [place] Chloride [Moles/Vol] 111 mmol/L High 97-105 [facility] Comment on above: Order Comment: Speci men Type: BLOOD SPECIMENOrdering Facility: [facility] Address: [address] [place] [address] Performed By: #### 2 432-2, ####[facility]ORATORYCLIA [id number] [place] [address] [place] CO2 [Moles/Vol] 24 mmol/L Normal 22-30 [facility] Comment on above: Order Comment: Speci men Type: BLOOD SPECIMENOrdering Facility: [facility] Address: [address] [place] [address] Performed By: #### 2 43205-08, ####[facility]ATORYCLIA [id number] [address] [place] Creatinine [Mass/Vol] 0.64 mg/dL Low 0.73-1.22 [facility] Comment on above: Order Comment: Speci men Type: BLOOD SPECIMENOrdering Facility: [facility] Address: [address] [place] [address] Performed By: #### 2 43205-08, ####[facility]ORATORYCLIA [id number] [place] [address] [place] GFR/1.73 sq M.predicted MDRD (S/P/Bld) [Vol rate/Area] mL/min/{1.73_m2} Normal [facility] Comment on above: Order Comment: Speci men Type: BLOOD SPECIMENOrdering Facility: [facility] Address: [address] [place] [address] Result Comment: >60e GFR (Estimated GFR) Units [...] actual GFR. Performed By: #### 2 43205-08, ####[facility]ORATORYCLIA [id number] [place] [address] [place] Glucose [Mass/Vol] 114 mg/dL High 74-99 [facility] Comment on above: Order Comment: Shira feldman Type: BLOOD SPECIMENOrdering Facility: [facility] Address: [address] [id number] Result Comment: The [place] [employer] (ADA) provides guidance for cutoff [...] Standards of Medical Care in Diabetes 2016, [place] [employer]. Diabetes Care. 2016.39(Suppl 1). Performed By: #### 2 4320-06, ####[facility]ORATORYCLIA [id number] [place] [address] [place] Potassium [Moles/Vol] 4.1 mmol/L Normal 3.7-5.1 [facility] Comment on above: Order Comment: Shira feldman Type: BLOOD SPECIMENOrdering Facility: [facility] Address: [address] [id number] Performed By: #### 2 43205-08, ####[facility]ORATORYCLIA [id number] [place] [address] [place] Sodium [Moles/Vol] 144 mmol/L Normal 136-144 [facility] Comment on above: Order Comment: Speci men Type: BLOOD SPECIMENOrdering Facility: [facility] Address: [address] [place] [address] Performed By: #### 2 4321-2, ####[facility]ORATORYCLIA [id number] [address] STATES OF [facility] Urea nitrogen [Mass/Vol] 27 mg/dL High 9-24 [facility] Comment on above: Order Comment: Speci men Type: BLOOD SPECIMENOrdering Facility: [facility] Address: [address] [place] [address] Performed By: #### 2 432-2, ####[facility]ORATORYCLIA [id number] [address] OF [facility] CASE MANAGEMon 06-20-2021 CASE MANAGEM Normal [facility] CBC panel Auto (Bld)on 06-20 Erythrocyte distribution width (RBC) [Ratio] 15.9 % High 11.5-15.0 [facility] Comment on above: Order Comment: Speci men Type: BLOOD SPECIMENOrdering Facility: [facility] Address: [address] [place] [address] Performed By: #### 5 8410-2 ####[facility]ORATORYCLIA [id number] [address] [place] Hematocrit (Bld) [Volume fraction] 31.0 % Low 39.0-51.0 [facility] Comment on above: Order Comment: Speci men Type: BLOOD SPECIMENOrdering Facility: [facility] Address: [address] [place] [address] Performed By: #### 5 8410-2 ####[facility]ORATORYCLIA [id number] [address] [place] Hemoglobin (Bld) [Mass/Vol] 9.2 g/dL Low 13.0-17.0 [facility] Comment on above: Order Comment: Speci men Type: BLOOD SPECIMENOrdering Facility: [facility] Address: [address] [place] [address] Performed By: #### 5 8410-2 ####[facility]ORATORYCLIA [id number] [address] MCH (RBC) [Entitic mass] 27.4 pg Normal 26.0-34.0 [facility] Comment on above: Order Comment: Speci men Type: BLOOD SPECIMENOrdering Facility: [facility] Address: [address] [place] [address] Performed By: #### 5 8410-2 ####[facility]ORATORYCLIA [id number] [address] MCHC (RBC) [Mass/Vol] 29.7 g/dL Low 30.5-36.0 [facility] Comment on above: Order Comment: Speci men Type: BLOOD SPECIMENOrdering Facility: [facility] Address: [address] [place] [address] Performed By: #### 5 8410-2 ####[facility]ORATORYCLIA [id number] [address] MCV (RBC) [Entitic vol] 92.3 fL Normal 80.0-100.0 [facility] Comment on above: Order Comment: Speci men Type: BLOOD SPECIMENOrdering Facility: [facility] Address: [address] [place] [address] Performed By: #### 5 8410-2 ####[facility] LABORATORYCLIA [id number] [address] Nucleated RBC (Bld) [#/Vol] 10*3/uL Normal <0.01 [facility] Comment on above: Order Comment: Speci men Type: BLOOD SPECIMENOrdering Facility: [facility] Address: [address] [place] [address] Performed By: #### 5 8410-2 ####[facility]ORATORYCLIA [id number] [address] Platelet mean volume (Bld) [Entitic vol] 11.5 fL Normal 9.0-12.7 [facility] Comment on above: Order Comment: Speci men Type: BLOOD SPECIMENOrdering Facility: [facility] Address: [address] [place] [address] Performed By: #### 5 8410-2 ####[facility]ORATORYCLIA [id number] [address] [place] Platelets (Bld) [#/Vol] 343 10*3/uL Normal 150-400 [facility] Comment on above: Order Comment: Speci men Type: BLOOD SPECIMENOrdering Facility: [facility] Address: [address] [place] [address] Performed By: #### 5 8410-2 ####[facility]ORATORYCLIA [id number] [address] RBC (Bld) [#/Vol] 3.36 10*6/uL Low 4.20-6.00 [facility] Comment on above: Order Comment: Speci men Type: BLOOD SPECIMENOrdering Facility: [facility] Address: [address] [place] [address] Performed By: #### 5 8410-2 ####[facility]ORATORYCLIA [id number] [address] WBC (Bld) [#/Vol] 10.71 10*3/uL Normal 3.70-11.00 [facility] Comment on above: Order Comment: Speci men Type: BLOOD SPECIMENOrdering Facility: [facility] Address: [address] [place] [address] Performed By: #### 5 8410-2 ####[facility]ORATORYCLIA [id number] [address] CONSULT PROGon 06-20-2021 CONSULT PROG Normal [facility] HEMOGLOBIN (HGB)on 2 Hemoglobin (Bld) [Mass/Vol] 9.7 g/dL Low 13.0-17.0 [facility] Comment on above: Order Comment: Speci men Type: BLOOD SPECIMENOrdering Facility: [facility] Address: [address] [place] [address] Performed By: #### H GB ####[facility] LABORATORYCLIA [id number] [address] [place] Magnesium SerPl-mCncon 06-20 Magnesium [Mass/Vol] 2.5 mg/dL High 1.7-2.3 [facility] Comment on above: Order Comment: Speci men Type: BLOOD SPECIMENOrdering Facility: [facility] Address: [address] [place] [address] Performed By: #### 2 4321-2, 23113-4 ####[facility] LABORATORYCLIA [id number] [address] [place] NURSING PROGon 06-20-2021 NURSING PROG Normal [facility] THERAPY NTon 06-20-2021 THERAPY NT Normal [facility] aPTT PPPon 06-20-2021 aPTT Coag (PPP) [Time] 93.5 s High 23.0-32.4 [facility] Comment on above: Order Comment: Speci men Type: BLOOD SPECIMENOrdering Facility: [facility] Address: [address] [place] [address] Performed By: #### 1 4979-9 ####[facility]ORATORYCLIA [id number] [address] [place] [facility] aPTT Coag (PPP) [Time] 47.1 s High 23.0-32.4 [facility] Comment on above: Order Comment: Speci men Type: BLOOD SPECIMENOrdering Facility: [facility] Address: [address] [place] [address] Performed By: #### 1 4979-9 ####[facility] LABORATORYCLIA [id number] [place] [address] [place] Basic metabolic 2000 panelon 06-19-2021 Anion gap [Moles/Vol] 7 mmol/L Low 9-18 [facility] Comment on above: Order Comment: Speci men Type: BLOOD SPECIMENOrdering Facility: [facility] Address: [address] [place] [address] Performed By: #### 2 4321-2 ####[facility]ORATORYCLIA [id number] [place] [address] [place] Calcium [Mass/Vol] 8.1 mg/dL Low 8.5-10.2 [facility] Comment on above: Order Comment: Speci men Type: BLOOD SPECIMENOrdering Facility: [facility] Address: [address] [place] [address] Performed By: #### 2 4321-2 ####[facility] LABORATORYCLIA [id number] [place] [address] [place] Chloride [Moles/Vol] 111 mmol/L High 97-105 [facility] Comment on above: Order Comment: Speci men Type: BLOOD SPECIMENOrdering Facility: [facility] Address: [address] [place] [address] Performed By: #### 2 4321-2 ####[facility] LABORATORYCLIA [id number] [place] [address] [place] CO2 [Moles/Vol] 24 mmol/L Normal 22-30 [facility] Comment on above: Order Comment: Speci men Type: BLOOD SPECIMENOrdering Facility: [facility] Address: [address] [place] [address] Performed By: #### 2 4321-2 ####[facility] LABORATORYCLIA [id number] [place] [address] [place] Creatinine [Mass/Vol] 0.71 mg/dL Low 0.73-1.22 [facility] Comment on above: Order Comment: Speci men Type: BLOOD SPECIMENOrdering Facility: [facility] Address: [address] [place] [address] Performed By: #### 2 4321-2 ####[facility]ORATORYCLIA [id number] [place] [address] [place] GFR/1.73 sq M.predicted MDRD (S/P/Bld) [Vol rate/Area] mL/min/{1.73_m2} Normal [facility] Comment on above: Order Comment: Shira feldman Type: BLOOD SPECIMENOrdering Facility: [facility] Address: [address] [place] [address] Result Comment: >60e GFR (Estimated GFR) Units [...] Performed By: #### 2 4321-2 ####[facility] [id number] [place] [address] [place] Glucose [Mass/Vol] 110 mg/dL High 74-99 [facility] Comment on above: Order Comment: Shira feldman Type: BLOOD SPECIMENOrdering Facility: [facility] Address: [address] [place] [address] Result Comment: The [place] [employer] (ADA) provides guidance for cutoff [...] Standards of Medical Care in Diabetes 2016, [place] [employer]. Diabetes Care. 2016.39(Suppl 1). Performed By: #### 2 4321-2 ####[facility]ORATORYCLIA [id number] [address] [place] Potassium [Moles/Vol] 3.7 mmol/L Normal 3.7-5.1 [facility] Comment on above: Order Comment: Speci men Type: BLOOD SPECIMENOrdering Facility: [facility] Address: [address] [place] [address] Performed By: #### 2 4321-2 ####[facility] LABORATORYCLIA [id number] [address] [place] Sodium [Moles/Vol] 142 mmol/L Normal 136-144 [facility] Comment on above: Order Comment: Speci men Type: BLOOD SPECIMENOrdering Facility: [facility] Address: [address] [place] [address] Performed By: #### 2 4321-2 ####[facility] LABORATORYCLIA [id number] [address] [place] [facility] Urea nitrogen [Mass/Vol] 26 mg/dL High 9-24 [facility] Comment on above: Order Comment: Speci men Type: BLOOD SPECIMENOrdering Facility: [facility] Address: [address] [place] [address] Performed By: #### 2 4321-2 ####[facility]ORATORYCLIA [id number] [address] STATES OF [facility] CBC panel Auto (Bld)on 06-19 Erythrocyte distribution width (RBC) [Ratio] 15.7 % High 11.5-15.0 [facility] Comment on above: Order Comment: Speci men Type: BLOOD SPECIMENOrdering Facility: [facility] Address: [address] [place] [address] Performed By: #### 5 8410-2 ####[facility] LABORATORYCLIA [id number] [address] Hematocrit (Bld) [Volume fraction] 30.9 % Low 39.0-51.0 [facility] Comment on above: Order Comment: Speci men Type: BLOOD SPECIMENOrdering Facility: [facility] Address: [address] [place] [address] Performed By: #### 5 8410-2 ####[facility] LABORATORYCLIA [id number] [address] OF [facility] Hemoglobin (Bld) [Mass/Vol] 9.5 g/dL Low 13.0-17.0 [facility] Comment on above: Order Comment: Speci men Type: BLOOD SPECIMENOrdering Facility: [facility] Address: [address] [place] [address] Performed By: #### 5 8410-2 ####[facility] LABORATORYCLIA [id number] [address] MCH (RBC) [Entitic mass] 28.4 pg Normal 26.0-34.0 [facility] Comment on above: Order Comment: Speci men Type: BLOOD SPECIMENOrdering Facility: [facility] Address: [address] [place] [address] Performed By: #### 5 8410-2 ####[facility]ORATORYCLIA [id number] [address] STATES OF [facility] MCHC (RBC) [Mass/Vol] 30.7 g/dL Normal 30.5-36.0 [facility] Comment on above: Order Comment: Speci men Type: BLOOD SPECIMENOrdering Facility: [facility] Address: [address] [place] [address] Performed By: #### 5 8410-2 ####[facility] LABORATORYCLIA [id number] [address] STATES [facility] MCV (RBC) [Entitic vol] 92.2 fL Normal 80.0-100.0 [facility] Comment on above: Order Comment: Speci men Type: BLOOD SPECIMENOrdering Facility: [facility] Address: [address] [place] [address] Performed By: #### 5 8410-2 ####[facility]ORATORYCLIA [id number] [address] Nucleated RBC (Bld) [#/Vol] 10*3/uL Normal <0.01 [facility] Comment on above: Order Comment: Speci men Type: BLOOD SPECIMENOrdering Facility: [facility] Address: [address] [place] [address] Performed By: #### 5 8410-2 ####[facility] LABORATORYCLIA [id number] [place] [address] [place] Platelet mean volume (Bld) [Entitic vol] 11.7 fL Normal 9.0-12.7 [facility] Comment on above: Order Comment: Speci men Type: BLOOD SPECIMENOrdering Facility: [facility] Address: [address] [place] [address] Performed By: #### 5 8410-2 ####[facility]ORATORYCLIA [id number] [address] [place] Platelets (Bld) [#/Vol] 323 10*3/uL Normal 150-400 [facility] Comment on above: Order Comment: Speci men Type: BLOOD SPECIMENOrdering Facility: [facility] Address: [address] [place] [address] Performed By: #### 5 8410-2 ####[facility]ORATORYCLIA [id number] [place] [address] [place] RBC (Bld) [#/Vol] 3.35 10*6/uL Low 4.20-6.00 [facility] Comment on above: Order Comment: Speci men Type: BLOOD SPECIMENOrdering Facility: [facility] Address: [address] [place], [place] [address] Performed By: #### 5 8410-2 ####[facility]ORATORYCLIA [id number] [address] [place] WBC (Bld) [#/Vol] 9.53 10*3/uL Normal 3.70-11.00 [facility] Comment on above: Order Comment: Speci men Type: BLOOD SPECIMENOrdering Facility: [facility] Address: [address] [place] [address] Performed By: #### 5 8410-2 ####[facility] LABORATORYCLIA [id number] [address] HEMOGLOBIN (HGB)on Hemoglobin (Bld) [Mass/Vol] 9.7 g/dL Low 13.0-17.0 [facility] Comment on above: Order Comment: Speci men Type: BLOOD SPECIMENOrdering Facility: [facility] Address: [address] [place] [address] Performed By: #### H GB ####[facility] LABORATORYCLIA [id number] [address] Magnesium SerPl-mCncon 06-19 Magnesium [Mass/Vol] 2.5 mg/dL High 1.7-2.3 [facility] Comment on above: Order Comment: Speci men Type: BLOOD SPECIMENOrdering Facility: [facility] Address: [address] [place] [address] Performed By: #### 1 9123-9, 2777-1 ####[facility]ORATORYCLIA [id number] [address] NURSING PROGon 06-19-2021 NURSING PROG Normal [facility] Phosphate SerPl-mCncon 06-19 Phosphate [Mass/Vol] 2.6 mg/dL Low 2.7-4.8 [facility] Comment on above: Order Comment: Speci men Type: BLOOD SPECIMENOrdering Facility: [facility] Address: [address] [place] [address] Performed By: #### 1 9123-9, 2777-1 ####[facility]ORATORYCLIA [id number] [address] aPTT PPPon 06-19-2021 aPTT Coag (PPP) [Time] 61.9 s High 23.0-32.4 [facility] Comment on above: Order Comment: Speci men Type: BLOOD SPECIMENOrdering Facility: [facility] Address: [address] [address] Performed By: #### 1 4979-9 ####[facility]ORATORYCLIA [id number] [address] aPTT Coag (PPP) [Time] 68.6 s High 23.0-32.4 [facility] Comment on above: Order Comment: Speci men Type: BLOOD SPECIMENOrdering Facility: [facility] Address: [address] [place] [address] Performed By: #### 1 4979-9 ####[facility]ORATORYCLIA [id number] [address] STATES OF [facility] aPTT Coag (PPP) [Time] 83.2 s High 23.0-32.4 [facility] Comment on above: Order Comment: Speci men Type: BLOOD SPECIMENOrdering Facility: [facility] Address: [address] [place] [address] Performed By: #### 1 4979-9 ####[facility]ORATORYCLIA [id number] [place] [address] [place] Basic metabolic 2000 panelon 06-18-2021 Anion gap [Moles/Vol] 7 mmol/L Low 9-18 [facility] Comment on above: Order Comment: Speci men Type: BLOOD SPECIMENOrdering Facility: [facility] Address: [address] [place] [address] Performed By: #### 2 4321-2, , 2776-05 ####[facility]ORATORYCLIA [id number] [address] [place] Calcium [Mass/Vol] 8.2 mg/dL Low 8.5-10.2 [facility] Comment on above: Order Comment: Speci men Type: BLOOD SPECIMENOrdering Facility: [facility] Address: [address] [place] [address] Performed By: #### 2 4321-2, , 27711-04 ####[facility]ORATORYCLIA [id number] [place] [address] [place] Chloride [Moles/Vol] 115 mmol/L High 97-105 [facility] Comment on above: Order Comment: Speci men Type: BLOOD SPECIMENOrdering Facility: [facility] Address: [address] [place] [address] Performed By: #### 2 4321-2, 27164-7, 2776- ####[facility]ORATORYCLIA [id number] [address] [place] CO2 [Moles/Vol] 23 mmol/L Normal 22-30 [facility] Comment on above: Order Comment: Speci men Type: BLOOD SPECIMENOrdering Facility: [facility] Address: [address] [place] [address] Performed By: #### 2 4321-2, , 2776-05 ####[facility]PITALIA [id number] [address] [place] Creatinine [Mass/Vol] 0.70 mg/dL Low 0.73-1.22 [facility] Comment on above: Order Comment: Speci men Type: BLOOD SPECIMENOrdering Facility: [facility] Address: [address] [place] [address] Performed By: #### 2 4321-2, , 2776-05 ####[facility]ORATORYCLIA [id number] [place] [address] [place] GFR/1.73 sq M.predicted MDRD (S/P/Bld) [Vol rate/Area] mL/min/{1.73_m2} Normal [facility] Comment on above: Order Comment: Speci men Type: BLOOD SPECIMENOrdering Facility: [facility] Address: [address] [place] [address] Result Comment: >60e GFR (Estimated GFR) Units [...] Performed By: #### 2 4321-2, , 2776-05 ####[facility]ORATORYCLIA [id number] [place] [address] [place] Glucose [Mass/Vol] 105 mg/dL High 74-99 [facility] Comment on above: Order Comment: Shira feldman Type: BLOOD SPECIMENOrdering Facility: [facility] Address: [address] [place], [place] [address] Result Comment: The [place] Diabetes [employer] (ADA) provides guidance for cutoff [...] Standards of Medical Care in Diabetes 2016, [place] [employer]. Diabetes Care. 2016.39(Suppl 1). Performed By: #### 2 4321-2, , 2776-05 ####[facility]ORATORYCLIA [id number] [place] [address] [place] Potassium [Moles/Vol] 4.1 mmol/L Normal 3.7-5.1 [facility] Comment on above: Order Comment: Shira feldman Type: BLOOD SPECIMENOrdering Facility: [facility] Address: [address] [place] [address] Performed By: #### 2 4321-2, , 2776-05 ####[facility]ORATORYCLIA [id number] [place] [address] [place] Sodium [Moles/Vol] 145 mmol/L High 136-144 [facility] Comment on above: Order Comment: Speci men Type: BLOOD SPECIMENOrdering Facility: [facility] Address: [address] [place] [address] Performed By: #### 2 4321-2, 64973-2, 2776- ####[facility]ORATORYCLIA [id number] [address] [place] Urea nitrogen [Mass/Vol] 27 mg/dL High 9-24 [facility] Comment on above: Order Comment: Speci men Type: BLOOD SPECIMENOrdering Facility: [facility] Address: [address] [place] [address] Performed By: #### 2 4321-2, , 2776-05 ####[facility]ORATORYCLIA [id number] [address] STATES OF [facility] CALCIUM IONIZED Bon 06-18-19 Calcium.ionized (BldV) [Mass/Vol] 1.22 mmol/L Normal 1.08-1.30 [facility] Comment on above: Order Comment: Speci men Type: BLOOD SPECIMENOrdering Facility: [facility] Address: [address] [place] [address] Performed By: #### I CA ####[facility] LABORATORYCLIA [id number] [address] Calcium.ionized adjusted to pH 7.4 (Bld) [Moles/Vol] 1.23 mmol/L Normal 1.08-1.30 [facility] Comment on above: Order Comment: Speci men Type: BLOOD SPECIMENOrdering Facility: [facility] Address: [address] [place] [address] Performed By: #### I CA ####[facility]ORATORYCLIA [id number] [address] [place] CBC panel Auto (Bld)on 06-18 Erythrocyte distribution width (RBC) [Ratio] 15.8 % High 11.5-15.0 [facility] Comment on above: Order Comment: Speci men Type: BLOOD SPECIMENOrdering Facility: [facility] Address: [address] [place] [address] Performed By: #### 5 8410-2 ####[facility]ORATORYCLIA [id number] [address] Hematocrit (Bld) [Volume fraction] 29.5 % Low 39.0-51.0 [facility] Comment on above: Order Comment: Speci men Type: BLOOD SPECIMENOrdering Facility: [facility] Address: [address] [place] [address] Performed By: #### 5 8410-2 ####[facility]ORATORYCLIA [id number] [address] Hemoglobin (Bld) [Mass/Vol] 8.8 g/dL Low 13.0-17.0 [facility] Comment on above: Order Comment: Speci men Type: BLOOD SPECIMENOrdering Facility: [facility] Address: [address] [place] [address] Performed By: #### 5 8410-2 ####[facility]ORATORYCLIA [id number] [address] MCH (RBC) [Entitic mass] 27.4 pg Normal 26.0-34.0 [facility] Comment on above: Order Comment: Speci men Type: BLOOD SPECIMENOrdering Facility: [facility] Address: [address] [place] [address] Performed By: #### 5 8410-2 ####[facility]ORATORYCLIA [id number] [address] [place] MCHC (RBC) [Mass/Vol] 29.8 g/dL Low 30.5-36.0 [facility] Comment on above: Order Comment: Speci men Type: BLOOD SPECIMENOrdering Facility: [facility] Address: [address] [place] [address] Performed By: #### 5 8410-2 ####[facility]ORATORYCLIA [id number] [address] STATES OF [facility] MCV (RBC) [Entitic vol] 91.9 fL Normal 80.0-100.0 [facility] Comment on above: Order Comment: Speci men Type: BLOOD SPECIMENOrdering Facility: [facility] Address: [address] [place] [address] Performed By: #### 5 8410-2 ####[facility]ORATORYCLIA [id number] [address] Nucleated RBC (Bld) [#/Vol] 10*3/uL Normal <0.01 [facility] Comment on above: Order Comment: Speci men Type: BLOOD SPECIMENOrdering Facility: [facility] Address: [address] [place] [address] Performed By: #### 5 8410-2 ####[facility]ORATORYCLIA [id number] [address] Platelet mean volume (Bld) [Entitic vol] 11.9 fL Normal 9.0-12.7 [facility] Comment on above: Order Comment: Speci men Type: BLOOD SPECIMENOrdering Facility: [facility] Address: [address] [place] [address] Performed By: #### 5 8410-2 ####[facility]ORATORYCLIA [id number] [address] Platelets (Bld) [#/Vol] 291 10*3/uL Normal 150-400 [facility] Comment on above: Order Comment: Speci men Type: BLOOD SPECIMENOrdering Facility: [facility] Address: [address] [place] [address] Performed By: #### 5 8410-2 ####[facility]ORATORYCLIA [id number] [address] [place] RBC (Bld) [#/Vol] 3.21 10*6/uL Low 4.20-6.00 [facility] Comment on above: Order Comment: Speci men Type: BLOOD SPECIMENOrdering Facility: [facility] Address: [address] [place] [address] Performed By: #### 5 8410-2 ####[facility]ORATORYCLIA [id number] [address] WBC (Bld) [#/Vol] 10.19 10*3/uL Normal 3.70-11.00 [facility] Comment on above: Order Comment: Speci men Type: BLOOD SPECIMENOrdering Facility: [facility] Address: [address] [place] [address] Performed By: #### 5 8410-2 ####[facility]ORATORYCLIA [id number] [address] FERRITIN BLDon 06-18-2021 Ferritin [Mass/Vol] 600.9 ng/mL High 30.3-565.7 [facility] Comment on above: Order Comment: Speci men Type: BLOOD SPECIMENOrdering Facility: [facility] Address: [address] [place] [address] Performed By: #### S ERFOL, IRON, FERR ####[facility]ORATORYCLIA [id number] [address] FOLATE SERUMon 06-18-2021 Folate [Mass/Vol] 14.3 ng/mL Normal >4.7 [facility] Comment on above: Order Comment: Speci men Type: BLOOD SPECIMENOrdering Facility: [facility] Address: [address] [place] [address] Performed By: #### S ERFOL, IRON, FERR ####[facility]ORATORYCLIA [id number] [address] Gas and Carbon monoxide pane l (BldV)on 06-18-2021 Base excess Calc (BldV) [Moles/Vol] 0.5 mmol/L Normal 0-2 [facility] Comment on above: Order Comment: Speci men Type: VENOUS BLOOD SPECIMENOrdering Facility: [facility] Address: [address] [place] [address] Performed By: #### 2 4344-4 ####[facility]ORATORYCLIA [id number] [address] Body temperature 97.34 [degF] Normal [facility] Comment on above: Order Comment: Speci men Type: VENOUS BLOOD SPECIMENOrdering Facility: [facility] Address: [address] [place] [address] Performed By: #### 2 4344-4 ####[facility]ORATORYCLIA [id number] [address] CALCIUM IONIZED, PH CORRECTED 1.26 mmol/L Normal 1.08-1.30 [facility] Comment on above: Order Comment: Speci men Type: VENOUS BLOOD SPECIMENOrdering Facility: [facility] Address: [address] [place] [address] Performed By: #### 2 4344-4 ####[facility]ORATORYCLIA [id number] [address] Calcium.ionized (BldV) [Mass/Vol] 1.25 mmol/L Normal 1.08-1.30 [facility] Comment on above: Order Comment: Speci men Type: VENOUS BLOOD SPECIMENOrdering Facility: [facility] Address: [address] [place] [address] Performed By: #### 2 4344-4 ####[facility] LABORATORYCLIA [id number] [address] OF [facility] Carboxyhemoglobin (BldV) [Mass fraction] 1.5 % Normal 0.0-2.0 [facility] Comment on above: Order Comment: Speci men Type: VENOUS BLOOD SPECIMENOrdering Facility: [facility] Address: [address] [place] [address] Result Comment: Carb oxyhemoglobin Reference Range for Smokers: 2.0-8.0% Performed By: #### 2 4344-4 ####[facility] LABORATORYCLIA [id number] [place] [address] [place] CO2 (BldV) [Partial pressure] 38 mm[Hg] Low 42-55 [facility] Comment on above: Order Comment: Speci men Type: VENOUS BLOOD SPECIMENOrdering Facility: [facility] Address: [address] [place] [address] Performed By: #### 2 4344-4 ####[facility] LABORATORYCLIA [id number] [place] [address] [place] CO2 [Moles/Vol] 22.9 mmol/L Low 25-29 [facility] Comment on above: Order Comment: Speci men Type: VENOUS BLOOD SPECIMENOrdering Facility: [facility] Address: [address] [place] [address] Performed By: #### 2 4344-4 ####[facility]ORATORYCLIA [id number] [address] [place] CO2 adjusted to patient's actual temperature (BldV) [Partial pressure] 37 mmHg Low 42-55 [facility] Comment on above: Order Comment: Speci men Type: VENOUS BLOOD SPECIMENOrdering Facility: [facility] Address: [address] [place] [address] Performed By: #### 2 4344-4 ####[facility]ORATORYCLIA [id number] [place] [address] [place] Glucose [Mass/Vol] 103 mg/dL Normal 60-105 [facility] Comment on above: Order Comment: Speci men Type: VENOUS BLOOD SPECIMENOrdering Facility: [facility] Address: [address] [place] [address] Performed By: #### 2 4344-4 ####[facility] LABORATORYCLIA [id number] [place] [address] [place] HCO3 (Bld) [Moles/Vol] 24.4 mmol/L Normal 24-28 [facility] Comment on above: Order Comment: Speci men Type: VENOUS BLOOD SPECIMENOrdering Facility: [facility] Address: [address] [place] [address] Performed By: #### 2 4344-4 ####[facility]ORATORYCLIA [id number] [address] OF [place] Hematocrit (Bld) [Volume fraction] 28.7 % Low 39.0-51.0 [facility] Comment on above: Order Comment: Speci men Type: VENOUS BLOOD SPECIMENOrdering Facility: [facility] Address: [address] [place] [address] Performed By: #### 2 4344-4 ####[facility] LABORATORYCLIA [id number] [address] [place] Hemoglobin (Bld) [Mass/Vol] 9.3 g/dL Low 13.0-17.0 [facility] Comment on above: Order Comment: Speci men Type: VENOUS BLOOD SPECIMENOrdering Facility: [facility] Address: [address] [place] [address] Performed By: #### 2 4344-4 ####[facility] LABORATORYCLIA [id number] [address] Methemoglobin (Bld) [Mass fraction] % Normal 0.0-1.5 [facility] Comment on above: Order Comment: Speci men Type: VENOUS BLOOD SPECIMENOrdering Facility: [facility] Address: [address] [place] [address] Performed By: #### 2 4344-4 ####[facility] LABORATORYCLIA [id number] [address] [place] O2 THERAPY Ventilator Normal [facility] Comment on above: Order Comment: Speci men Type: VENOUS BLOOD SPECIMENOrdering Facility: [facility] Address: [address] [place] [address] Performed By: #### 2 4344-4 ####[facility] LABORATORYCLIA [id number] [address] [address] Oxygen (BldV) [Partial pressure] 37 mm[Hg] Normal 35-45 [facility] Comment on above: Order Comment: Speci men Type: VENOUS BLOOD SPECIMENOrdering Facility: [facility] Address: [address] [address] Performed By: #### 2 4344-4 ####[facility]ORATORYCLIA [id number] [address] OF [facility] Oxygen adjusted to patient's actual temperature (BldV) [Partial pressure] 35.1 mmHg Normal 35-45 [facility] Comment on above: Order Comment: Speci men Type: VENOUS BLOOD SPECIMENOrdering Facility: [facility] Address: [address] [place] [address] Performed By: #### 2 4344-4 ####[facility]ORATORYCLIA [id number] [address] Oxygen saturation in Blood 67.1 % Normal 60-85 [facility] Comment on above: Order Comment: Speci men Type: VENOUS BLOOD SPECIMENOrdering Facility: [facility] Address: [address] [place] [address] Performed By: #### 2 4344-4 ####[facility] LABORATORYCLIA [id number] [address] Oxyhemoglobin (BldV) [Mass fraction] 66 % Normal 60-85 [facility] Comment on above: Order Comment: Speci men Type: VENOUS BLOOD SPECIMENOrdering Facility: [facility] Address: [address] [place] [address] Performed By: #### 2 4344-4 ####[facility] LABORATORYCLIA [id number] [address] [place] pH (BldV) 7.42 [pH] Normal 7.32-7.42 [facility] Comment on above: Order Comment: Speci men Type: VENOUS BLOOD SPECIMENOrdering Facility: [facility] Address: [address] [place] [address] Performed By: #### 2 4344-4 ####[facility]ORATORYCLIA [id number] [address] [place] pH adjusted to patient's actual temperature (BldV) 7.43 High 7.32-7.42 [facility] Comment on above: Order Comment: Speci men Type: VENOUS BLOOD SPECIMENOrdering Facility: [facility] Address: [address] [place] [address] Performed By: #### 2 4344-4 ####[facility] LABORATORYCLIA [id number] [address] [place] Potassium [Moles/Vol] 4.0 mmol/L Normal 3.5-5.0 [facility] Comment on above: Order Comment: Speci men Type: VENOUS BLOOD SPECIMENOrdering Facility: [facility] Address: [address] [place] [address] Performed By: #### 2 4344-4 ####[facility] LABORATORYCLIA [id number] [address] STATES OF [facility] Sodium [Moles/Vol] 146 mmol/L High 136-144 [facility] Comment on above: Order Comment: Speci men Type: VENOUS BLOOD SPECIMENOrdering Facility: [facility] Address: [address] [place] [address] Performed By: #### 2 4344-4 ####[facility]ORATORYCLIA [id number] [address] [place] HEMOGLOBIN (HGB)on Hemoglobin (Bld) [Mass/Vol] 9.2 g/dL Low 13.0-17.0 [facility] Comment on above: Order Comment: Speci men Type: BLOOD SPECIMENOrdering Facility: [facility] Address: [address] [place] [address] Performed By: #### H GB ####[facility] LABORATORYCLIA [id number] [address] [place] IRON + TIBCon 06-18-2021 Iron [Mass/Vol] 27 ug/dL Low 41-186 [facility] Comment on above: Order Comment: Speci men Type: BLOOD SPECIMENOrdering Facility: [facility] Address: [address] [place] [address] Performed By: #### S ERFOL, IRON, FERR ####[facility] LABORATORYCLIA [id number] [address] Iron binding capacity [Mass/Vol] 141 ug/dL Low 232-386 [facility] Comment on above: Order Comment: Speci men Type: BLOOD SPECIMENOrdering Facility: [facility] Address: [address] [place] [address] Performed By: #### S ERFOL, IRON, FERR ####[facility] LABORATORYCLIA [id number] [address] Iron saturation [Mass fraction] 19 % Normal 15-57 [facility] Comment on above: Order Comment: Speci men Type: BLOOD SPECIMENOrdering Facility: [facility] Address: [address] [place] [address] Performed By: #### S ERFOL, IRON, FERR ####[facility]ORATORYCLIA [id number] [address] Magnesium SerPl-mCncon 06-18 Magnesium [Mass/Vol] 2.5 mg/dL High 1.7-2.3 [facility] Comment on above: Order Comment: Speci men Type: BLOOD SPECIMENOrdering Facility: [facility] Address: [address] [place] [address] Performed By: #### 2 4321-2, , 2776-05 ####[facility]ORATORYCLIA [id number] [address] [place] NURSING PROGon 06-18-2021 NURSING PROG Normal [facility] Phosphate SerPl-mCncon 06-18 Phosphate [Mass/Vol] 3.0 mg/dL Normal 2.7-4.8 [facility] Comment on above: Order Comment: Speci men Type: BLOOD SPECIMENOrdering Facility: [facility] Address: [address] [place] [address] Performed By: #### 2 4321-2, , 2776-05 ####[facility]ORATORYCLIA [id number] [address] [place] THERAPY NTon 06-18-2021 THERAPY NT Normal [facility] aPTT PPPon 06-18-2021 aPTT Coag (PPP) [Time] 43.0 s High 23.0-32.4 [facility] Comment on above: Order Comment: Speci men Type: BLOOD SPECIMENOrdering Facility: [facility] Address: [address] [place] [address] Performed By: #### 1 4979-9 ####[facility]ORATORYCLIA [id number] [address] aPTT Coag (PPP) [Time] 60.6 s High 23.0-32.4 [facility] Comment on above: Order Comment: Speci men Type: BLOOD SPECIMENOrdering Facility: [facility] Address: [address] [place] [address] Performed By: #### 1 4979-9 ####[facility]ITALCLIA [id number] [address] aPTT Coag (PPP) [Time] 46.4 s High 23.0-32.4 [facility] Comment on above: Order Comment: Speci men Type: BLOOD SPECIMENOrdering Facility: [facility] Address: [address] [place] [address] Performed By: #### 1 4979-9 ####[facility]ORATORYCLIA [id number] [address] OF [facility] Basic metabolic 2000 panelon 06-17-2021 Anion gap [Moles/Vol] 7 mmol/L Low 9-18 [facility] Comment on above: Order Comment: Speci men Type: BLOOD SPECIMENOrdering Facility: [facility] Address: [address] [place] [address] Performed By: #### 2 951-2, 48621-4, 2777-1, 45882-0 ####[facility] LABORATORYCLIA [id number] [place] [address] [place] Calcium [Mass/Vol] 8.1 mg/dL Low 8.5-10.2 [facility] Comment on above: Order Comment: Speci men Type: BLOOD SPECIMENOrdering Facility: [facility] Address: [address] [place] [address] Performed By: #### 2 951-2, 99000-2, 2776-1, 27756-9 ####[facility] LABORATORYCLIA [id number] [place] [address] [place] Chloride [Moles/Vol] 113 mmol/L High 97-105 [facility] Comment on above: Order Comment: Speci men Type: BLOOD SPECIMENOrdering Facility: [facility] Address: [address] [place] [address] Performed By: #### 2 951-2, , 2776-05, 83531-6 ####[facility]ORATORYCLIA [id number] [place] [address] [place] CO2 [Moles/Vol] 25 mmol/L Normal 22-30 [facility] Comment on above: Order Comment: Speci men Type: BLOOD SPECIMENOrdering Facility: [facility] Address: [address] [place] [address] Performed By: #### 2 951-2, , 2776-05, 71881-6 ####[facility] LABORATORYCLIA [id number] [place] [address] [place] Creatinine [Mass/Vol] 0.70 mg/dL Low 0.73-1.22 [facility] Comment on above: Order Comment: Speci men Type: BLOOD SPECIMENOrdering Facility: [facility] Address: [address] [place] [address] Performed By: #### 2 951-2, , 2776-05, 09634-2 ####[facility]ORATORYCLIA [id number] [place] [address] [place] GFR/1.73 sq M.predicted MDRD (S/P/Bld) [Vol rate/Area] mL/min/{1.73_m2} Normal [facility] Comment on above: Order Comment: Shira feldman Type: BLOOD SPECIMENOrdering Facility: [facility] Address: [address] [place], [place] [address] Result Comment: >60e GFR (Estimated GFR) Units [...] actual GFR. Performed By: #### 2 951-2, 59678-1, 2777-1, 29445-4 ####[facility]ORATORYCLIA [id number] [place] [address] [place] Glucose [Mass/Vol] 122 mg/dL High 74-99 [facility] Comment on above: Order Comment: Shira feldman Type: BLOOD SPECIMENOrdering Facility: [facility] Address: [address] [place], [place] [address] Result Comment: The [place] [employer] (ADA) provides guidance for cutoff [...] Standards of Medical Care in Diabetes 2016, [place] [employer]. Diabetes Care. 2016.39(Suppl 1). Performed By: #### 2 951-2, 48855-7, 2777-1, 06090-6 ####[facility] LABORATORYCLIA [id number] [address] STATES OF [facility] Potassium [Moles/Vol] 3.5 mmol/L Low 3.7-5.1 [facility] Comment on above: Order Comment: Speci men Type: BLOOD SPECIMENOrdering Facility: [facility] Address: [address] [place] [address] Performed By: #### 2 951-2, 64030-8, 2777-1, 91983-0 ####[facility] LABORATORYCLIA [id number] [address] [place] Urea nitrogen [Mass/Vol] 27 mg/dL High 9- [facility] Comment on above: Order Comment: Speci men Type: BLOOD SPECIMENOrdering Facility: [facility] Address: [address] [place] [address] Performed By: #### 2 951-2, 33960-3, 2777-1, 69757-5 ####[facility]ITALCLIA [id number] [address] OF [facility] CASE MANAGEMon 06-17-2021 CASE MANAGEM Normal [facility] CBC panel Auto (Bld)on 06-17 Erythrocyte distribution width (RBC) [Ratio] 15.9 % High 11.5-15.0 [facility] Comment on above: Order Comment: Speci men Type: BLOOD SPECIMENOrdering Facility: [facility] Address: [address] [place] [address] Performed By: #### 5 8410-2 ####[facility]ORATORYCLIA [id number] [address] Hematocrit (Bld) [Volume fraction] 28.9 % Low 39.0-51.0 [facility] Comment on above: Order Comment: Speci men Type: BLOOD SPECIMENOrdering Facility: [facility] Address: [address] [place] [address] Performed By: #### 5 8410-2 ####[facility]ORATORYCLIA [id number] [address] Hemoglobin (Bld) [Mass/Vol] 8.8 g/dL Low 13.0-17.0 [facility] Comment on above: Order Comment: Speci men Type: BLOOD SPECIMENOrdering Facility: [facility] Address: [address] [place] [address] Performed By: #### 5 8410-2 ####[facility] LABORATORYCLIA [id number] [address] MCH (RBC) [Entitic mass] 28.4 pg Normal 26.0-34.0 [facility] Comment on above: Order Comment: Speci men Type: BLOOD SPECIMENOrdering Facility: [facility] Address: [address] [place] [address] Performed By: #### 5 8410-2 ####[facility]ORATORYCLIA [id number] [address] MCHC (RBC) [Mass/Vol] 30.4 g/dL Low 30.5-36.0 [facility] Comment on above: Order Comment: Speci men Type: BLOOD SPECIMENOrdering Facility: [facility] Address: [address] [place] [address] Performed By: #### 5 8410-2 ####[facility]ORATORYCLIA [id number] [address] MCV (RBC) [Entitic vol] 93.2 fL Normal 80.0-100.0 [facility] Comment on above: Order Comment: Speci men Type: BLOOD SPECIMENOrdering Facility: [facility] Address: [address] [place] [address] Performed By: #### 5 8410-2 ####[facility] LABORATORYCLIA [id number] [address] Nucleated RBC (Bld) [#/Vol] 10*3/uL Normal <0.01 [facility] Comment on above: Order Comment: Speci men Type: BLOOD SPECIMENOrdering Facility: [facility] Address: [address] Performed By: #### 5 8410-2 ####[facility] LABORATORYCLIA [id number] [address] Platelet mean volume (Bld) [Entitic vol] 11.9 fL Normal 9.0-12.7 [facility] Comment on above: Order Comment: Speci men Type: BLOOD SPECIMENOrdering Facility: [facility] Address: [address] [place] [address] Performed By: #### 5 8410-2 ####[facility] LABORATORYCLIA [id number] [address] OF [facility] Platelets (Bld) [#/Vol] 257 10*3/uL Normal 150-400 [facility] Comment on above: Order Comment: Speci men Type: BLOOD SPECIMENOrdering Facility: [facility] Address: [address] [place] [address] Performed By: #### 5 8410-2 ####[facility] LABORATORYCLIA [id number] [address] [place] RBC (Bld) [#/Vol] 3.10 10*6/uL Low 4.20-6.00 [facility] Comment on above: Order Comment: Speci men Type: BLOOD SPECIMENOrdering Facility: [facility] Address: [address] [place] [address] Performed By: #### 5 8410-2 ####[facility]ORATORYCLIA [id number] [address] [place] WBC (Bld) [#/Vol] 10.54 10*3/uL Normal 3.70-11.00 [facility] Comment on above: Order Comment: Speci men Type: BLOOD SPECIMENOrdering Facility: [facility] Address: [address] [place] [address] Performed By: #### 5 8410-2 ####[facility]ORATORYCLIA [id number] [address] HEMOGLOBIN (HGB)on Hemoglobin (Bld) [Mass/Vol] 8.8 g/dL Low 13.0-17.0 [facility] Comment on above: Order Comment: Speci men Type: BLOOD SPECIMENOrdering Facility: [facility] Address: [address] [place] [address] Performed By: #### H GB ####[facility] LABORATORYCLIA [id number] [address] OF [facility] Magnesium SerPl-mCncon 06-17 Magnesium [Mass/Vol] 2.5 mg/dL High 1.7-2.3 [facility] Comment on above: Order Comment: Speci men Type: BLOOD SPECIMENOrdering Facility: [facility] Address: [address] [place] [address] Performed By: #### 2 951-2, 86990-7, 2777-1, 88607-3 ####[facility]ORATORYCLIA [id number] [address] NURSING PROGon 06-17-2021 NURSING PROG Normal [facility] NURSING PROG Normal [facility] NURSING PROG Normal [facility] Phosphate SerPl-mCncon 06-17 Phosphate [Mass/Vol] 1.9 mg/dL Low 2.7-4.8 [facility] Comment on above: Order Comment: Speci men Type: BLOOD SPECIMENOrdering Facility: [facility] Address: [address] [place] [address] Performed By: #### 2 951-2, 35877-2, 2777-1, 29664-7 ####[facility]ORATORYCLIA [id number] [address] OF [facility] Sodium SerPl-sCncon 06-17-19 22 Sodium [Moles/Vol] 144 mmol/L Normal 136-144 [facility] Comment on above: Order Comment: Speci men Type: BLOOD SPECIMENOrdering Facility: [facility] Address: [address] [place] [address] Performed By: #### 2 951-2 ####[facility]ORATORYCLIA [id number] [address] STATES OF [facility] Sodium [Moles/Vol] 145 mmol/L High 136-144 [facility] Comment on above: Order Comment: Speci men Type: BLOOD SPECIMENOrdering Facility: [facility] Address: [address] [place] [address] Performed By: #### 2 951-2, 36128-0, 2777-1, 46646-8 ####[facility] LABORATORYCLIA [id number] [place] [address] [place] aPTT PPPon 06-17-2021 aPTT Coag (PPP) [Time] 55.8 s High 23.0-32.4 [facility] Comment on above: Order Comment: Speci men Type: BLOOD SPECIMENOrdering Facility: [facility] Address: [address] [place] [address] Performed By: #### 1 4979-9 ####[facility] LABORATORYCLIA [id number] [address] [place] ARTERIAL BLOOD GASESon 06-16 Base excess Calc (Bld) [Moles/Vol] 3 mmol/L High 0-2 [facility] Comment on above: Order Comment: Speci men Type: ARTERIAL BLOOD SPECIMENOrdering Facility: [facility] Address: [address] [place] [address] Performed By: #### A LLBG ####[facility] LABORATORYCLIA [id number] [address] [place] Body temperature 99.14 [degF] Normal [facility] Comment on above: Order Comment: Speci men Type: ARTERIAL BLOOD SPECIMENOrdering Facility: [facility] Address: [address] [place] [address] Performed By: #### A LLBG ####[facility] LABORATORYCLIA [id number] [address] [place] CALCIUM IONIZED, PH CORRECTED 1.21 mmol/L Normal 1.08-1.30 [facility] Comment on above: Order Comment: Speci men Type: ARTERIAL BLOOD SPECIMENOrdering Facility: [facility] Address: [address] [place] [address] Performed By: #### A LLBG ####[facility] LABORATORYCLIA [id number] [place] [address] [place] Calcium.ionized (BldV) [Mass/Vol] 1.17 mmol/L Normal 1.08-1.30 [facility] Comment on above: Order Comment: Speci men Type: ARTERIAL BLOOD SPECIMENOrdering Facility: [facility] Address: [address] [place] [address] Performed By: #### A LLBG ####[facility]ORATORYCLIA [id number] [address] [place] Carboxyhemoglobin (BldA) [Mass fraction] 1.4 % Normal 0.0-2.0 [facility] Comment on above: Order Comment: Speci men Type: ARTERIAL BLOOD SPECIMENOrdering Facility: [facility] Address: [address] [place] [address] Result Comment: Carb oxyhemoglobin Reference Range for Smokers: 2.0-8.0% Performed By: #### A LLBG ####[facility] LABORATORYCLIA [id number] [place] [address] [place] CO2 (Bld) [Partial pressure] 38 mm Hg Normal 36-46 [facility] Comment on above: Order Comment: Speci men Type: ARTERIAL BLOOD SPECIMENOrdering Facility: [facility] Address: [address] [place] [address] Performed By: #### A LLBG ####[facility] LABORATORYCLIA [id number] [place] [address] [place] CO2 [Moles/Vol] 24.5 mmol/L Normal 22-28 [facility] Comment on above: Order Comment: Speci men Type: ARTERIAL BLOOD SPECIMENOrdering Facility: [facility] Address: [address] [place] [address] Performed By: #### A LLBG ####[facility] LABORATORYCLIA [id number] [address] CO2 adjusted to patient's actual temperature (Bld) [Partial pressure] 38 mmHg Normal 36-46 [facility] Comment on above: Order Comment: Speci men Type: ARTERIAL BLOOD SPECIMENOrdering Facility: [facility] Address: [address] [place] [address] Performed By: #### A LLBG ####[facility] LABORATORYCLIA [id number] [address] [place] Glucose [Mass/Vol] 147 mg/dL High 60-105 [facility] Comment on above: Order Comment: Speci men Type: ARTERIAL BLOOD SPECIMENOrdering Facility: [facility] Address: [address] [place] [address] Performed By: #### A LLBG ####[facility] LABORATORYCLIA [id number] [address] HCO3 (Bld) [Moles/Vol] 27 mmol/L High 22-26 [facility] Comment on above: Order Comment: Speci men Type: ARTERIAL BLOOD SPECIMENOrdering Facility: [facility] Address: [address] [place] [address] Performed By: #### A LLBG ####[facility] LABORATORYCLIA [id number] [address] [place] Hematocrit (Bld) [Volume fraction] 31.8 % Low 39.0-51.0 [facility] Comment on above: Order Comment: Speci men Type: ARTERIAL BLOOD SPECIMENOrdering Facility: [facility] Address: [address] [place] [address] Performed By: #### A LLBG ####[facility] LABORATORYCLIA [id number] [address] [place] Hemoglobin (Bld) [Mass/Vol] 10.3 g/dL Low 13.0-17.0 [facility] Comment on above: Order Comment: Speci men Type: ARTERIAL BLOOD SPECIMENOrdering Facility: [facility] Address: [address] [address] Performed By: #### A LLBG ####[facility]ORATORYCLIA [id number] [address] Methemoglobin (Bld) [Mass fraction] 1.0 % Normal 0.0-1.5 [facility] Comment on above: Order Comment: Speci men Type: ARTERIAL BLOOD SPECIMENOrdering Facility: [facility] Address: [address] [place] [address] Performed By: #### A LLBG ####[facility] LABORATORYCLIA [id number] [address] O2 THERAPY Ventilator Normal [facility] Comment on above: Order Comment: Speci men Type: ARTERIAL BLOOD SPECIMENOrdering Facility: [facility] Address: [address] [place] [address] Performed By: #### A LLBG ####[facility] LABORATORYCLIA [id number] [address] Oxygen (Bld) [Partial pressure] 78 mm Hg Low 85-95 [facility] Comment on above: Order Comment: Speci men Type: ARTERIAL BLOOD SPECIMENOrdering Facility: [facility] Address: [address] [place] [address] Performed By: #### A LLBG ####[facility]ORATORYCLIA [id number] [address] Oxygen adjusted to patient's actual temperature (Bld) [Partial pressure] 79.7 mmHg Low 85-95 [facility] Comment on above: Order Comment: Speci men Type: ARTERIAL BLOOD SPECIMENOrdering Facility: [facility] Address: [address] [address] Performed By: #### A LLBG ####[facility]ORATORYCLIA [id number] [address] [place] OXYGEN SATURATION, ARTERIAL 96 % Normal 95-98 [facility] Comment on above: Order Comment: Speci men Type: ARTERIAL BLOOD SPECIMENOrdering Facility: [facility] Address: [address] [place] [address] Performed By: #### A LLBG ####[facility] LABORATORYCLIA [id number] [address] [place] Oxyhemoglobin (BldA) [Mass fraction] 94 % Low 95- [facility] Comment on above: Order Comment: Speci men Type: ARTERIAL BLOOD SPECIMENOrdering Facility: [facility] Address: [address] [place] [address] Performed By: #### A LLBG ####[facility] LABORATORYCLIA [id number] [place] [address] [place] pH (Bld) 7.47 [pH] High 7.35-7.45 [facility] Comment on above: Order Comment: Speci men Type: ARTERIAL BLOOD SPECIMENOrdering Facility: [facility] Address: [address] [place] [address] Performed By: #### A LLBG ####[facility] LABORATORYCLIA [id number] [address] [facility] pH adjusted to patient's actual temperature (Bld) 7.46 High 7.35-7.45 [facility] Comment on above: Order Comment: Speci men Type: ARTERIAL BLOOD SPECIMENOrdering Facility: [facility] Address: [address] [place] [address] Performed By: #### A LLBG ####[facility] LABORATORYCLIA [id number] [place] [address] [place] Potassium [Moles/Vol] 3.7 mmol/L Normal 3.5-5.0 [facility] Comment on above: Order Comment: Speci men Type: ARTERIAL BLOOD SPECIMENOrdering Facility: [facility] Address: [address] [place] [address] Performed By: #### A LLBG ####[facility] LABORATORYCLIA [id number] [address] [place] Sodium [Moles/Vol] 155 mmol/L High 136-144 [facility] Comment on above: Order Comment: Speci men Type: ARTERIAL BLOOD SPECIMENOrdering Facility: [facility] Address: [address] [place] [address] Performed By: #### A LLBG ####[facility] LABORATORYCLIA [id number] [address] [place] Bacteria Spec Resp Culton Bacteria identified Respiratory culture Nom (Unsp spec) CULTURE, RESPIRATORY: Rare Normal respiratory chris present ORGANISM ID: 1 Few Yeast, not cryptococcus neoformans GRAM STAIN: No organisms seen Few Polymorphonuclear leukocytes Few Epithelial cells Abnormal [facility] Comment on above: Performed By: #### 3 2355-0 ####[facility]ORATORYCLIA [id number] [place] [address] [place] Basic metabolic 2000 panelon 06-16-2021 Anion gap [Moles/Vol] 9 mmol/L Normal 9-18 [facility] Comment on above: Order Comment: Speci men Type: BLOOD SPECIMENOrdering Facility: [facility] Address: [address] [place] [address] Performed By: #### 2 4321-2 ####[facility] LABORATORYCLIA [id number] [place] [address] [place] Calcium [Mass/Vol] 8.4 mg/dL Low 8.5-10.2 [facility] Comment on above: Order Comment: Speci men Type: BLOOD SPECIMENOrdering Facility: [facility] Address: [address] [place] [address] Performed By: #### 2 4321-2 ####[facility]ORATORYCLIA [id number] [place] [address] [place] Chloride [Moles/Vol] 120 mmol/L High 97-105 [facility] Comment on above: Order Comment: Speci men Type: BLOOD SPECIMENOrdering Facility: [facility] Address: [address] [place] [address] Performed By: #### 2 4321-2 ####[facility] LABORATORYCLIA [id number] [address] STATES OF [facility] CO2 [Moles/Vol] 27 mmol/L Normal 22-30 [facility] Comment on above: Order Comment: Speci men Type: BLOOD SPECIMENOrdering Facility: [facility] Address: [address] [place] [address] Performed By: #### 2 4321-2 ####[facility]ORATORYCLIA [id number] [address] [place] Creatinine [Mass/Vol] 0.75 mg/dL Normal 0.73-1.22 [facility] Comment on above: Order Comment: Speci men Type: BLOOD SPECIMENOrdering Facility: [facility] Address: [address] [place] [address] Performed By: #### 2 4321-2 ####[facility] [id number] [address] [place] GFR/1.73 sq M.predicted MDRD (S/P/Bld) [Vol rate/Area] mL/min/{1.73_m2} Normal [facility] Comment on above: Order Comment: Speci men Type: BLOOD SPECIMENOrdering Facility: [facility] Address: [address] [place] [address] Result Comment: >60e GFR (Estimated GFR) Units [...] actual GFR. Performed By: #### 2 4321-2 ####[facility]ORATORYCLIA [id number] [address] [place] Glucose [Mass/Vol] 160 mg/dL High 74-99 [facility] Comment on above: Order Comment: Speci men Type: BLOOD SPECIMENOrdering Facility: [facility] Address: [address] [place] [address] Result Comment: The [place] [employer] (ADA) provides guidance for cutoff [...] Standards of Medical Care in Diabetes 2016, [place] [employer]. Diabetes Care. 2016.39(Suppl 1). Performed By: #### 2 4321-2 ####[facility]ORATORYCLIA [id number] [place] [address] [place] Potassium [Moles/Vol] 3.1 mmol/L Low 3.7-5.1 [facility] Comment on above: Order Comment: Shira men Type: BLOOD SPECIMENOrdering Facility: [facility] Address: [address] [place] [address] Performed By: #### 2 4321-2 ####[facility]ORATORYCLIA [id number] [place] [address] [place] Sodium [Moles/Vol] 156 mmol/L High 136-144 [facility] Comment on above: Order Comment: Speci men Type: BLOOD SPECIMENOrdering Facility: [facility] Address: [address] [place] [address] Performed By: #### 2 4321-2 ####[facility]ORATORYCLIA [id number] [place] [address] [place] Urea nitrogen [Mass/Vol] 33 mg/dL High 9-24 [facility] Comment on above: Order Comment: Speci men Type: BLOOD SPECIMENOrdering Facility: [facility] Address: [address] [place] [address] Performed By: #### 2 4321-2 ####[facility] LABORATORYCLIA [id number] [address] CASE MANAGEMon 06-16-2021 CASE MANAGEM Normal [facility] CBC panel Auto (Bld)on 06-16 Erythrocyte distribution width (RBC) [Ratio] 15.9 % High 11.5-15.0 [facility] Comment on above: Order Comment: Speci men Type: BLOOD SPECIMENOrdering Facility: [facility] Address: [address] [place] [address] Performed By: #### 5 8410-2 ####[facility] LABORATORYCLIA [id number] [address] [place] [facility] Hematocrit (Bld) [Volume fraction] 34.6 % Low 39.0-51.0 [facility] Comment on above: Order Comment: Speci men Type: BLOOD SPECIMENOrdering Facility: [facility] Address: [address] [place] [address] Performed By: #### 5 8410-2 ####[facility]ORATORYCLIA [id number] [address] Hemoglobin (Bld) [Mass/Vol] 10.2 g/dL Low 13.0-17.0 [facility] Comment on above: Order Comment: Speci men Type: BLOOD SPECIMENOrdering Facility: [facility] Address: [address] [place] [address] Performed By: #### 5 8410-2 ####[facility] LABORATORYCLIA [id number] [address] MCH (RBC) [Entitic mass] 28.5 pg Normal 26.0-34.0 [facility] Comment on above: Order Comment: Speci men Type: BLOOD SPECIMENOrdering Facility: [facility] Address: [address] [place] [address] Performed By: #### 5 8410-2 ####[facility]ORATORYCLIA [id number] [address] [place] [facility] MCHC (RBC) [Mass/Vol] 29.5 g/dL Low 30.5-36.0 [facility] Comment on above: Order Comment: Speci men Type: BLOOD SPECIMENOrdering Facility: [facility] Address: [address] [place] [address] Performed By: #### 5 8410-2 ####[facility] LABORATORYCLIA [id number] [address] [place] OF [facility] MCV (RBC) [Entitic vol] 96.6 fL Normal 80.0-100.0 [facility] Comment on above: Order Comment: Speci men Type: BLOOD SPECIMENOrdering Facility: [facility] Address: [address] [place] [address] Performed By: #### 5 8410-2 ####[facility]ORATORYCLIA [id number] [address] Nucleated RBC (Bld) [#/Vol] 10*3/uL Normal <0.01 [facility] Comment on above: Order Comment: Speci men Type: BLOOD SPECIMENOrdering Facility: [facility] Address: [address] [place] [address] Performed By: #### 5 8410-2 ####[facility]ORATORYCLIA [id number] [address] [place] Platelet mean volume (Bld) [Entitic vol] 11.9 fL Normal 9.0-12.7 [facility] Comment on above: Order Comment: Speci men Type: BLOOD SPECIMENOrdering Facility: [facility] Address: [address] [place] [address] Performed By: #### 5 8410-2 ####[facility]ORATORYCLIA [id number] [address] [place] Platelets (Bld) [#/Vol] 269 10*3/uL Normal 150-400 [facility] Comment on above: Order Comment: Speci men Type: BLOOD SPECIMENOrdering Facility: [facility] Address: [address] [place] [address] Performed By: #### 5 8410-2 ####[facility]ORATORYCLIA [id number] [address] [place] [facility] RBC (Bld) [#/Vol] 3.58 10*6/uL Low 4.20-6.00 [facility] Comment on above: Order Comment: Speci men Type: BLOOD SPECIMENOrdering Facility: [facility] Address: [address] [place] [address] Performed By: #### 5 8410-2 ####[facility]ORATORYCLIA [id number] [address] WBC (Bld) [#/Vol] 13.11 10*3/uL High 3.70-11.00 [facility] Comment on above: Order Comment: Speci men Type: BLOOD SPECIMENOrdering Facility: [facility] Address: [address] [place] [address] Performed By: #### 5 8410-2 ####[facility]ORATORYCLIA [id number] [address] [place] CONSULTon 06-16-2021 CONSULT Normal [facility] CONSULT PROGon 06-16-2021 CONSULT PROG Normal [facility] CT BRAIN WO IVCONon 06-16-[address] BRAIN WO IVCON Normal [facility] HEMOGLOBIN (HGB)on 2 Hemoglobin (Bld) [Mass/Vol] 8.9 g/dL Low 13.0-17.0 [facility] Comment on above: Order Comment: Speci men Type: BLOOD SPECIMENOrdering Facility: [facility] Address: [address] [place] [address] Performed By: #### H GB ####[facility]ORATORYCLIA [id number] [address] OF [facility] Hemoglobin (Bld) [Mass/Vol] 9.6 g/dL Low 13.0-17.0 [facility] Comment on above: Order Comment: Speci men Type: BLOOD SPECIMENOrdering Facility: [facility] Address: [address] [place] [address] Performed By: #### H GB ####[facility] LABORATORYCLIA [id number] [address] [place] Magnesium SerPl-mCncon 06-16 Magnesium [Mass/Vol] 2.7 mg/dL High 1.7-2.3 [facility] Comment on above: Order Comment: Speci men Type: BLOOD SPECIMENOrdering Facility: [facility] Address: [address] [place] [address] Performed By: #### 1 9123-9 ####[facility]ORATORYCLIA [id number] [address] [place] NURSING PROGon 06-16-2021 NURSING PROG Normal [facility] NUTRITIONon 06-16-2021 NUTRITION Normal [facility] Phosphate SerPl-mCncon 06-16 Phosphate [Mass/Vol] 1.4 mg/dL Low 2.7-4.8 [facility] Comment on above: Order Comment: Speci men Type: BLOOD SPECIMENOrdering Facility: [facility] Address: [address] [place] [address] Performed By: #### 2 777-1 ####[facility]ORATORYCLIA [id number] [address] [place] STAPH AUREUS PCRon 2 S. aureus and MRSA panel MEGAN+probe (Nose) Normal Negative [facility] Comment on above: Order Comment: Speci men Type: SWAB OF INTERNAL NOSEOrdering Facility: [facility] Address: [address] [place] [address] Result Comment: Nega tive for Staphylococcus aureus by PCR.Negative for MRSA by PCR Performed By: #### S APCR ####[facility]ORATORYCLIA [id number] [address] [place] Sodium SerPl-sCncon 06-16-19 Sodium [Moles/Vol] 150 mmol/L High 136-144 [facility] Comment on above: Order Comment: Speci men Type: BLOOD SPECIMENOrdering Facility: [facility] Address: [address] [place] [address] Performed By: #### 2 951-2 ####[facility]ORATORYCLIA [id number] [place] [address] [place] Sodium [Moles/Vol] 153 mmol/L High 136-144 [facility] Comment on above: Order Comment: Speci men Type: BLOOD SPECIMENOrdering Facility: [facility] Address: [address] [place] [address] Performed By: #### 2 951-2 ####[facility]ORATORYCLIA [id number] [address] [place] Sodium [Moles/Vol] 158 mmol/L High 136-144 [facility] Comment on above: Order Comment: Speci men Type: BLOOD SPECIMENOrdering Facility: [facility] Address: [address] [place] [address] Performed By: #### 2 951-2 ####[facility]ORATORYCLIA [id number] [address] [place] aPTT PPPon 06-16-2021 aPTT Coag (PPP) [Time] 61.8 s High 23.0-32.4 [facility] Comment on above: Order Comment: Speci men Type: BLOOD SPECIMENOrdering Facility: [facility] Address: [address] [place] [address] Performed By: #### 1 4979-9 ####[facility]ATORYCLIA [id number] [address] [place] aPTT Coag (PPP) [Time] 57.6 s High 23.0-32.4 [facility] Comment on above: Order Comment: Speci men Type: BLOOD SPECIMENOrdering Facility: [facility] Address: [address] [place] [address] Performed By: #### 1 4979-9 ####[facility]ORATORYCLIA [id number] [address] [place] ALLIED HEALTHon 06-15-2021 ALLIED HEALTH Normal [facility] ALLIED HEALTH Normal [facility] ALLIED HEALTH Normal [facility] ALLIED HEALTH Normal [facility] ARTERIAL BLOOD GASESon 06-15 Base excess Calc (Bld) [Moles/Vol] 3 mmol/L High 0-2 [facility] Comment on above: Order Comment: Speci men Type: ARTERIAL BLOOD SPECIMENOrdering Facility: [facility] Address: [address] [place] [address] Performed By: #### A LLBG ####[facility]ORATORYCLIA [id number] [address] [place] Body temperature 99.5 [degF] Normal [facility] Comment on above: Order Comment: Speci men Type: ARTERIAL BLOOD SPECIMENOrdering Facility: [facility] Address: [address] [place] [address] Performed By: #### A LLBG ####[facility]ORATORYCLIA [id number] [place] [address] [place] CALCIUM IONIZED, PH CORRECTED 1.34 mmol/L High 1.08-1.30 [facility] Comment on above: Order Comment: Speci men Type: ARTERIAL BLOOD SPECIMENOrdering Facility: [facility] Address: [address] [place] [address] Performed By: #### A LLBG ####[facility]ORATORYCLIA [id number] [address] [place] Calcium.ionized (BldV) [Mass/Vol] 1.29 mmol/L Normal 1.08-1.30 [facility] Comment on above: Order Comment: Speci men Type: ARTERIAL BLOOD SPECIMENOrdering Facility: [facility] Address: [address] [place] [address] Performed By: #### A LLBG ####[facility]ORATORYCLIA [id number] [address] [place] Carboxyhemoglobin (BldA) [Mass fraction] 1.3 % Normal 0.0-2.0 [facility] Comment on above: Order Comment: Speci men Type: ARTERIAL BLOOD SPECIMENOrdering Facility: [facility] Address: [address] [address] Result Comment: Carb oxyhemoglobin Reference Range for Smokers: 2.0-8.0% Performed By: #### A LLBG ####[facility]ORATORYCLIA [id number] [address] [place] CO2 (Bld) [Partial pressure] 37 mm Hg Normal 36-46 [facility] Comment on above: Order Comment: Speci men Type: ARTERIAL BLOOD SPECIMENOrdering Facility: [facility] Address: [address] [address] Performed By: #### A LLBG ####[facility]ATORYCLIA [id number] [address] [place] CO2 [Moles/Vol] 24.6 mmol/L Normal 22-28 [facility] Comment on above: Order Comment: Speci men Type: ARTERIAL BLOOD SPECIMENOrdering Facility: [facility] Address: [address] [address] Performed By: #### A LLBG ####[facility]ORATORYCLIA [id number] [address] [place] CO2 adjusted to patient's actual temperature (Bld) [Partial pressure] 38 mmHg Normal 36-46 [facility] Comment on above: Order Comment: Speci men Type: ARTERIAL BLOOD SPECIMENOrdering Facility: [facility] Address: [address] [address] Performed By: #### A LLBG ####[facility]ORATORYCLIA [id number] [address] [place] FIO2 100 % Normal [facility] Comment on above: Order Comment: Speci men Type: ARTERIAL BLOOD SPECIMENOrdering Facility: [facility] Address: [address] [address] Performed By: #### A LLBG ####[facility]ORATORYCLIA [id number] [address] [place] Glucose [Mass/Vol] 159 mg/dL High 60-105 [facility] Comment on above: Order Comment: Speci men Type: ARTERIAL BLOOD SPECIMENOrdering Facility: [facility] Address: [address] [place] [address] Performed By: #### A LLBG ####[facility]ORATORYCLIA [id number] [address] [place] HCO3 (Bld) [Moles/Vol] 27 mmol/L High 22-26 [facility] Comment on above: Order Comment: Speci men Type: ARTERIAL BLOOD SPECIMENOrdering Facility: [facility] Address: [address] [place] [address] Performed By: #### A LLBG ####[facility]ATORYCLIA [id number] [address] Hematocrit (Bld) [Volume fraction] 31.0 % Low 39.0-51.0 [facility] Comment on above: Order Comment: Speci men Type: ARTERIAL BLOOD SPECIMENOrdering Facility: [facility] Address: [address] [place] [address] Performed By: #### A LLBG ####[facility]ATORYCLIA [id number] [address] [place] Hemoglobin (Bld) [Mass/Vol] 10.0 g/dL Low 13.0-17.0 [facility] Comment on above: Order Comment: Speci men Type: ARTERIAL BLOOD SPECIMENOrdering Facility: [facility] Address: [address] [place] [address] Performed By: #### A LLBG ####[facility]ATORYCLIA [id number] [address] [place] Methemoglobin (Bld) [Mass fraction] % Normal 0.0-1.5 [facility] Comment on above: Order Comment: Speci men Type: ARTERIAL BLOOD SPECIMENOrdering Facility: [facility] Address: [facility] [address] Performed By: #### A LLBG ####[facility]ORYCLIA [id number] [address] [place] O2 THERAPY Ventilator Normal [facility] Comment on above: Order Comment: Speci men Type: ARTERIAL BLOOD SPECIMENOrdering Facility: [facility] Address: [address] [place] [address] Performed By: #### A LLBG ####[facility]ORYCLIA [id number] [address] [place] Oxygen (Bld) [Partial pressure] 279 mm Hg High 85-95 [facility] Comment on above: Order Comment: Speci men Type: ARTERIAL BLOOD SPECIMENOrdering Facility: [facility] Address: [address] [place] [address] Performed By: #### A LLBG ####[facility]ORYCLIA [id number] [address] Oxygen adjusted to patient's actual temperature (Bld) [Partial pressure] 281 mmHg High 85-95 [facility] Comment on above: Order Comment: Speci men Type: ARTERIAL BLOOD SPECIMENOrdering Facility: [facility] Address: [address] [place] [address] Performed By: #### A LLBG ####[facility]ATORYCLIA [id number] [address] [place] OXYGEN SATURATION, ARTERIAL 100 % High 95-98 [facility] Comment on above: Order Comment: Speci men Type: ARTERIAL BLOOD SPECIMENOrdering Facility: [facility] Address: [facility] [place] [address] Performed By: #### A LLBG ####[facility]ORYCLIA [id number] [address] [place] Oxyhemoglobin (BldA) [Mass fraction] 98 % Normal 95-98 [facility] Comment on above: Order Comment: Speci men Type: ARTERIAL BLOOD SPECIMENOrdering Facility: [facility] Address: [address] [place] [address] Performed By: #### A LLBG ####[facility]ORATORYCLIA [id number] [address] pH (Bld) 7.47 [pH] High 7.35-7.45 [facility] Comment on above: Order Comment: Speci men Type: ARTERIAL BLOOD SPECIMENOrdering Facility: [facility] Address: [address] [place] [address] Performed By: #### A LLBG ####[facility]ATORYCLIA [id number] [address] pH adjusted to patient's actual temperature (Bld) 7.46 High 7.35-7.45 [facility] Comment on above: Order Comment: Speci men Type: ARTERIAL BLOOD SPECIMENOrdering Facility: [facility] Address: [address] [place] [address] Performed By: #### A LLBG ####[facility]ORATORYCLIA [id number] [address] [place] Potassium [Moles/Vol] 3.6 mmol/L Normal 3.5-5.0 [facility] Comment on above: Order Comment: Speci men Type: ARTERIAL BLOOD SPECIMENOrdering Facility: [facility] Address: [address] [place] [address] Performed By: #### A LLBG ####[facility]ORATORYCLIA [id number] [address] [place] Sodium [Moles/Vol] 162 mmol/L High 136-144 [facility] Comment on above: Order Comment: Speci men Type: ARTERIAL BLOOD SPECIMENOrdering Facility: [facility] Address: [address] [place] [address] Performed By: #### A LLBG ####[facility]ORATORYCLIA [id number] [address] [place] Base excess Calc (Bld) [Moles/Vol] 4 mmol/L High 0-2 [facility] Comment on above: Order Comment: Speci men Type: ARTERIAL BLOOD SPECIMENOrdering Facility: [facility] Address: [address] [place] [address] Performed By: #### A LLBG ####[facility]ORATORYCLIA [id number] [address] [place] Body temperature 100.58 [degF] Normal [facility] Comment on above: Order Comment: Speci men Type: ARTERIAL BLOOD SPECIMENOrdering Facility: [facility] Address: [address] [place] [address] Performed By: #### A LLBG ####[facility]ORATORYCLIA [id number] [place] [address] [place] CALCIUM IONIZED, PH CORRECTED 1.34 mmol/L High 1.08-1.30 [facility] Comment on above: Order Comment: Speci men Type: ARTERIAL BLOOD SPECIMENOrdering Facility: [facility] Address: [address] [place] [address] Performed By: #### A LLBG ####[facility]ORATORYCLIA [id number] [address] [place] Calcium.ionized (BldV) [Mass/Vol] 1.33 mmol/L High 1.08-1.30 [facility] Comment on above: Order Comment: Speci men Type: ARTERIAL BLOOD SPECIMENOrdering Facility: [facility] Address: [address] [place] [address] Performed By: #### A LLBG ####[facility]ORATORYCLIA [id number] [place] [address] [place] Carboxyhemoglobin (BldA) [Mass fraction] 1.5 % Normal 0.0-2.0 [facility] Comment on above: Order Comment: Speci men Type: ARTERIAL BLOOD SPECIMENOrdering Facility: [facility] Address: [address] [place] [address] Result Comment: Carb oxyhemoglobin Reference Range for Smokers: 2.0-8.0% Performed By: #### A LLBG ####[facility]ATORYCLIA [id number] [address] CO2 (Bld) [Partial pressure] 46 mm Hg Normal 36-46 [facility] Comment on above: Order Comment: Speci men Type: ARTERIAL BLOOD SPECIMENOrdering Facility: [facility] Address: [address] [address] Performed By: #### A LLBG ####[facility]ORYCLIA [id number] [address] CO2 [Moles/Vol] 26.4 mmol/L Normal 22-28 [facility] Comment on above: Order Comment: Speci men Type: ARTERIAL BLOOD SPECIMENOrdering Facility: [facility] Address: [address] [place] [address] Performed By: #### A LLBG ####[facility]ORATORYCLIA [id number] [address] CO2 adjusted to patient's actual temperature (Bld) [Partial pressure] 48 mmHg High 36-46 [facility] Comment on above: Order Comment: Speci men Type: ARTERIAL BLOOD SPECIMENOrdering Facility: [facility] Address: [address] [place] [address] Performed By: #### A LLBG ####[facility] LABORATORYCLIA [id number] [address] FIO2 100 % Normal [facility] Comment on above: Order Comment: Speci men Type: ARTERIAL BLOOD SPECIMENOrdering Facility: [facility] Address: [address] [address] Performed By: #### A LLBG ####[facility]ORATORYCLIA [id number] [address] Glucose [Mass/Vol] 132 mg/dL High 60-105 [facility] Comment on above: Order Comment: Speci men Type: ARTERIAL BLOOD SPECIMENOrdering Facility: [facility] Address: [address] [place], [place] [address] Performed By: #### A LLBG ####[facility]ORATORYCLIA [id number] [address] [place] HCO3 (Bld) [Moles/Vol] 29 mmol/L High 22-26 [facility] Comment on above: Order Comment: Speci men Type: ARTERIAL BLOOD SPECIMENOrdering Facility: [facility] Address: [address] [place] [address] Performed By: #### A LLBG ####[facility]ORATORYCLIA [id number] [address] [place] Hematocrit (Bld) [Volume fraction] 32.3 % Low 39.0-51.0 [facility] Comment on above: Order Comment: Speci men Type: ARTERIAL BLOOD SPECIMENOrdering Facility: [facility] Address: [address] [place] [address] Performed By: #### A LLBG ####[facility]ORATORYCLIA [id number] [address] OF [facility] Hemoglobin (Bld) [Mass/Vol] 10.4 g/dL Low 13.0-17.0 [facility] Comment on above: Order Comment: Speci men Type: ARTERIAL BLOOD SPECIMENOrdering Facility: [facility] Address: [address] [place] [address] Performed By: #### A LLBG ####[facility]ORATORYCLIA [id number] [address] [place] Methemoglobin (Bld) [Mass fraction] % Normal 0.0-1.5 [facility] Comment on above: Order Comment: Speci men Type: ARTERIAL BLOOD SPECIMENOrdering Facility: [facility] Address: [address] [place] [address] Performed By: #### A LLBG ####[facility]ORATORYCLIA [id number] [address] [place] O2 THERAPY NR=Non-Rebreather Mask Normal [facility] Comment on above: Order Comment: Speci men Type: ARTERIAL BLOOD SPECIMENOrdering Facility: [facility] Address: [address] [place] [address] Performed By: #### A LLBG ####[facility]ORATORYCLIA [id number] [address] Oxygen (Bld) [Partial pressure] 130 mm Hg High 85-95 [facility] Comment on above: Order Comment: Speci men Type: ARTERIAL BLOOD SPECIMENOrdering Facility: [facility] Address: [address] [place] [address] Performed By: #### A LLBG ####[facility]ORATORYCLIA [id number] [address] Oxygen adjusted to patient's actual temperature (Bld) [Partial pressure] 136 mmHg High 85-95 [facility] Comment on above: Order Comment: Speci men Type: ARTERIAL BLOOD SPECIMENOrdering Facility: [facility] Address: [address] [place] [address] Performed By: #### A LLBG ####[facility]ORATORYCLIA [id number] [address] [place] OXYGEN SATURATION, ARTERIAL 99 % High 95-98 [facility] Comment on above: Order Comment: Speci men Type: ARTERIAL BLOOD SPECIMENOrdering Facility: [facility] Address: [address] [place] [address] Performed By: #### A LLBG ####[facility]ATORYCLIA [id number] [address] [place] Oxyhemoglobin (BldA) [Mass fraction] 97 % Normal 95-98 [facility] Comment on above: Order Comment: Speci men Type: ARTERIAL BLOOD SPECIMENOrdering Facility: [facility] Address: [address] [place] [address] Performed By: #### A LLBG ####[facility]ORATORYCLIA [id number] [address] [place] pH (Bld) 7.41 [pH] Normal 7.35-7.45 [facility] Comment on above: Order Comment: Speci men Type: ARTERIAL BLOOD SPECIMENOrdering Facility: [facility] Address: [address] [place] [address] Performed By: #### A LLBG ####[facility]ORATORYCLIA [id number] [address] pH adjusted to patient's actual temperature (Bld) 7.40 Normal 7.35-7.45 [facility] Comment on above: Order Comment: Speci men Type: ARTERIAL BLOOD SPECIMENOrdering Facility: [facility] Address: [address] [place] [address] Performed By: #### A LLBG ####[facility]ORATORYCLIA [id number] [address] Potassium [Moles/Vol] 3.8 mmol/L Normal 3.5-5.0 [facility] Comment on above: Order Comment: Speci men Type: ARTERIAL BLOOD SPECIMENOrdering Facility: [facility] Address: [address] [place] [address] Performed By: #### A LLBG ####[facility]ORATORYCLIA [id number] [address] [place] [facility] Sodium [Moles/Vol] 166 mmol/L High 136-144 [facility] Comment on above: Order Comment: Speci men Type: ARTERIAL BLOOD SPECIMENOrdering Facility: [facility] Address: [address] [place] [address] Performed By: #### A LLBG ####[facility]ORATORYCLIA [id number] [place] [address] [place] Bacteria Bld Culton 06-15-19 Bacteria identified Cx Nom (Bld) CULTURE, BLOOD: No growth 5 days Normal [facility] Comment on above: Performed By: #### 6 00-7 ####[facility]ORATORYCLIA [id number] [place] [address] [place] Basic metabolic 2000 panelon 06-15-2021 Anion gap [Moles/Vol] 9 mmol/L Normal 9-18 [facility] Comment on above: Order Comment: Speci men Type: BLOOD SPECIMEN Performed By: #### 2 4321-2, 2776-05, ####[facility]ORATORYCLIA [id number] [place], [place] [address] [place] [address] [place] [facility] Calcium [Mass/Vol] 9.0 mg/dL Normal 8.5-10.2 [facility] Comment on above: Order Comment: Speci men Type: BLOOD SPECIMEN Performed By: #### 2 4321-2, 2776-05, ####[facility]ORATORYCLIA [id number] [address] [place] Chloride [Moles/Vol] 125 mmol/L High 97-105 [facility] Comment on above: Order Comment: Speci men Type: BLOOD SPECIMEN Performed By: #### 2 4321-2, 2776-05, ####[facility]ORATORYCLIA [id number] [address] [place] CO2 [Moles/Vol] 29 mmol/L Normal 22-30 [facility] Comment on above: Order Comment: Speci men Type: BLOOD SPECIMEN Performed By: #### 2 4321-2, 2776-05, ####[facility]ORATORYCLIA [id number] [address] [place] Creatinine [Mass/Vol] 0.81 mg/dL Normal 0.73-1.22 [facility] Comment on above: Order Comment: Speci men Type: BLOOD SPECIMEN Performed By: #### 2 4321-2, 2776-05, ####[facility]ORATORYCLIA [id number] [place] [address] [place] GFR/1.73 sq M.predicted [...] has been calibrated to be traceable to IDTN. An eGFR <60 mL/min/1.73m2 for >3 months is consistent with chronic kidney disease. Refer to KDOQI guidelines for clinical interpretation. In patients with unstable renal function, e.g. those with acute kidney injury, the eGFR may not accurately reflect actual GFR. Performed By: #### 2 4321-2, 2776-05, ####[facility]ITALCLIA [id number] [place] [address] [place] Glucose [Mass/Vol] 124 mg/dL High 74-99 [facility] Comment on above: Order Comment: Speci men Type: BLOOD SPECIMEN Result Comment: The [place] Diabetes [employer] (ADA) provides guidance for cutoff [...] Standards of Medical Care in Diabetes 2016, [place] [employer]. Diabetes Care. 2016.39(Suppl 1). Performed By: #### 2 4321-2, 2776-05, ####[facility]ORATORYCLIA [id number] [place] [address] [place] Potassium [Moles/Vol] 3.8 mmol/L Normal 3.7-5.1 [facility] Comment on above: Order Comment: Speci men Type: BLOOD SPECIMEN Performed By: #### 2 4321-2, 2776-05, ####[facility]ORATORYCLIA [id number] [place] [address] [place] Sodium [Moles/Vol] 163 mmol/L High 136-144 [facility] Comment on above: Order Comment: Speci men Type: BLOOD SPECIMEN Performed By: #### 2 4321-2, 2776-, ####[facility]ORATORYCLIA [id number] [place], [place] [address] [place] [address] [place] Urea nitrogen [Mass/Vol] 35 mg/dL High 9-24 [facility] Comment on above: Order Comment: Speci men Type: BLOOD SPECIMEN Performed By: #### 2 4321-2, 2776-, ####[facility]ORATORYCLIA [id number] [address] [place] CBC panel Auto (Bld)on 06-15 Erythrocyte distribution width (RBC) [Ratio] 16.3 % High 11.5-15.0 [facility] Comment on above: Order Comment: Speci men Type: BLOOD SPECIMENOrdering Facility: [facility] Address: [address] [place] [address] Performed By: #### 5 8410-2 ####[facility]ORATORYCLIA [id number] [address] [place] Hematocrit (Bld) [Volume fraction] 30.0 % Low 39.0-51.0 [facility] Comment on above: Order Comment: Speci men Type: BLOOD SPECIMENOrdering Facility: [facility] Address: [address] [place] [address] Performed By: #### 5 8410-2 ####[facility]ORATORYCLIA [id number] [address] [place] Hemoglobin (Bld) [Mass/Vol] 8.9 g/dL Low 13.0-17.0 [facility] Comment on above: Order Comment: Speci men Type: BLOOD SPECIMENOrdering Facility: [facility] Address: [address] [place] [address] Performed By: #### 5 8410-2 ####[facility]ORATORYCLIA [id number] [address] MCH (RBC) [Entitic mass] 28.7 pg Normal 26.0-34.0 [facility] Comment on above: Order Comment: Speci men Type: BLOOD SPECIMENOrdering Facility: [facility] Address: [address] [place] [address] Performed By: #### 5 8410-2 ####[facility]ORATORYCLIA [id number] [address] MCHC (RBC) [Mass/Vol] 29.7 g/dL Low 30.5-36.0 [facility] Comment on above: Order Comment: Speci men Type: BLOOD SPECIMENOrdering Facility: [facility] Address: [address] [place] [address] Performed By: #### 5 8410-2 ####[facility]ORATORYCLIA [id number] [address] MCV (RBC) [Entitic vol] 96.8 fL Normal 80.0-100.0 [facility] Comment on above: Order Comment: Speci men Type: BLOOD SPECIMENOrdering Facility: [facility] Address: [address] [place] [address] Performed By: #### 5 8410-2 ####[facility]ORATORYCLIA [id number] [address] Nucleated RBC (Bld) [#/Vol] 10*3/uL Normal <0.01 [facility] Comment on above: Order Comment: Speci men Type: BLOOD SPECIMENOrdering Facility: [facility] Address: [address] [place] [address] Performed By: #### 5 8410-2 ####[facility]ORATORYCLIA [id number] [address] Platelet mean volume (Bld) [Entitic vol] 12.3 fL Normal 9.0-12.7 [facility] Comment on above: Order Comment: Speci men Type: BLOOD SPECIMENOrdering Facility: [facility] Address: [address] [address] Performed By: #### 5 8410-2 ####[facility]ORATORYCLIA [id number] [address] Platelets (Bld) [#/Vol] 226 10*3/uL Normal 150-400 [facility] Comment on above: Order Comment: Speci men Type: BLOOD SPECIMENOrdering Facility: [facility] Address: [address] [place] [address] Performed By: #### 5 8410-2 ####[facility]ORATORYCLIA [id number] [address] RBC (Bld) [#/Vol] 3.10 10*6/uL Low 4.20-6.00 [facility] Comment on above: Order Comment: Speci men Type: BLOOD SPECIMENOrdering Facility: [facility] Address: [address] [place] [address] Performed By: #### 5 8410-2 ####[facility]ORATORYCLIA [id number] [address] WBC (Bld) [#/Vol] 10.77 10*3/uL Normal 3.70-11.00 [facility] Comment on above: Order Comment: Speci men Type: BLOOD SPECIMENOrdering Facility: [facility] Address: [address] [place] [address] Performed By: #### 5 8410-2 ####[facility]ORATORYCLIA [id number] [address] Erythrocyte distribution width (RBC) [Ratio] 16.2 % High 11.5-15.0 [facility] Comment on above: Order Comment: Speci men Type: BLOOD SPECIMENOrdering Facility: [facility] Address: [address] [place] [address] Performed By: #### 5 8410-2 ####[facility]ORATORYCLIA [id number] [address] Hematocrit (Bld) [Volume fraction] 34.8 % Low 39.0-51.0 [facility] Comment on above: Order Comment: Speci men Type: BLOOD SPECIMENOrdering Facility: [facility] Address: [address] [place] [address] Performed By: #### 5 8410-2 ####[facility]ORATORYCLIA [id number] [address] STATES OF [facility] Hemoglobin (Bld) [Mass/Vol] 10.0 g/dL Low 13.0-17.0 [facility] Comment on above: Order Comment: Speci men Type: BLOOD SPECIMENOrdering Facility: [facility] Address: [address] [place] [address] Performed By: #### 5 8410-2 ####[facility]ORATORYCLIA [id number] [address] OF [facility] MCH (RBC) [Entitic mass] 27.5 pg Normal 26.0-34.0 [facility] Comment on above: Order Comment: Speci men Type: BLOOD SPECIMENOrdering Facility: [facility] Address: [address] [place] [address] Performed By: #### 5 8410-2 ####[facility]ORATORYCLIA [id number] [address] STATES OF [facility] MCHC (RBC) [Mass/Vol] 28.7 g/dL Low 30.5-36.0 [facility] Comment on above: Order Comment: Speci men Type: BLOOD SPECIMENOrdering Facility: [facility] Address: [address] [place] [address] Performed By: #### 5 8410-2 ####[facility]ORATORYCLIA [id number] [address] MCV (RBC) [Entitic vol] 95.6 fL Normal 80.0-100.0 [facility] Comment on above: Order Comment: Speci men Type: BLOOD SPECIMENOrdering Facility: [facility] Address: [address] [place] [address] Performed By: #### 5 8410-2 ####[facility]ORATORYCLIA [id number] [address] Nucleated RBC (Bld) [#/Vol] 10*3/uL Normal <0.01 [facility] Comment on above: Order Comment: Speci men Type: BLOOD SPECIMENOrdering Facility: [facility] Address: [address] [place] [address] Performed By: #### 5 8410-2 ####[facility]ORATORYCLIA [id number] [address] [place] Platelet mean volume (Bld) [Entitic vol] 11.9 fL Normal 9.0-12.7 [facility] Comment on above: Order Comment: Speci men Type: BLOOD SPECIMENOrdering Facility: [facility] Address: [address] [place] [address] Performed By: #### 5 8410-2 ####[facility]ORATORYCLIA [id number] [address] [place] Platelets (Bld) [#/Vol] 246 10*3/uL Normal 150-400 [facility] Comment on above: Order Comment: Speci men Type: BLOOD SPECIMENOrdering Facility: [facility] Address: [address] [place] [address] Performed By: #### 5 8410-2 ####[facility]ORATORYCLIA [id number] [address] [place] RBC (Bld) [#/Vol] 3.64 10*6/uL Low 4.20-6.00 [facility] Comment on above: Order Comment: Speci men Type: BLOOD SPECIMENOrdering Facility: [facility] Address: [address] [place] [address] Performed By: #### 5 8410-2 ####[facility]ORATORYCLIA [id number] [address] [place] WBC (Bld) [#/Vol] 11.45 10*3/uL High 3.70-11.00 [facility] Comment on above: Order Comment: Speci men Type: BLOOD SPECIMENOrdering Facility: [facility] Address: [address] [place] [address] Performed By: #### 5 8410-2 ####[facility]ORATORYCLIA [id number] [address] Erythrocyte distribution width (RBC) [Ratio] 15.9 % High 11.5-15.0 [facility] Comment on above: Order Comment: Speci men Type: BLOOD SPECIMEN Performed By: #### 5 8410-2 ####[facility]ATORYCLIA [id number] [address] Hematocrit (Bld) [Volume fraction] 35.8 % Low 39.0-51.0 [facility] Comment on above: Order Comment: Speci men Type: BLOOD SPECIMEN Performed By: #### 5 8410-2 ####[facility]ATORYCLIA [id number] [address] Hemoglobin (Bld) [Mass/Vol] 10.4 g/dL Low 13.0-17.0 [facility] Comment on above: Order Comment: Speci men Type: BLOOD SPECIMEN Performed By: #### 5 8410-2 ####[facility]ORATORYCLIA [id number] [address] MCH (RBC) [Entitic mass] 28.0 pg Normal 26.0-34.0 [facility] Comment on above: Order Comment: Speci men Type: BLOOD SPECIMEN Performed By: #### 5 8410-2 ####[facility]ORATORYCLIA [id number] [address] OF [facility] MCHC (RBC) [Mass/Vol] 29.1 g/dL Low 30.5-36.0 [facility] Comment on above: Order Comment: Speci men Type: BLOOD SPECIMEN Performed By: #### 5 8410-2 ####[facility]ATORYCLIA [id number] [address] MCV (RBC) [Entitic vol] 96.2 fL Normal 80.0-100.0 [facility] Comment on above: Order Comment: Speci men Type: BLOOD SPECIMEN Performed By: #### 5 8410-2 ####[facility]ATORYCLIA [id number] [address] Nucleated RBC (Bld) [#/Vol] 10*3/uL Normal <0.01 [facility] Comment on above: Order Comment: Speci men Type: BLOOD SPECIMEN Performed By: #### 5 8410-2 ####[facility]ATORYCLIA [id number] [address] Platelet mean volume (Bld) [Entitic vol] 11.6 fL Normal 9.0-12.7 [facility] Comment on above: Order Comment: Speci men Type: BLOOD SPECIMEN Performed By: #### 5 8410-2 ####[facility]ATORYCLIA [id number] [address] Platelets (Bld) [#/Vol] 265 10*3/uL Normal 150-400 [facility] Comment on above: Order Comment: Speci men Type: BLOOD SPECIMEN Performed By: #### 5 8410-2 ####[facility]ATORYCLIA [id number] [address] RBC (Bld) [#/Vol] 3.72 10*6/uL Low 4.20-6.00 [facility] Comment on above: Order Comment: Speci men Type: BLOOD SPECIMEN Performed By: #### 5 8410-2 ####[facility]ATORYCLIA [id number] [address] WBC (Bld) [#/Vol] 12.24 10*3/uL High 3.70-11.00 [facility] Comment on above: Order Comment: Speci men Type: BLOOD SPECIMEN Performed By: #### 5 8410-2 ####[facility]ORATORYCLIA [id number] [address] [place] CONSULTon 06-15-2021 CONSULT Normal [...] Comment: Speci men Type: URINE SPECIMENOrdering Facility: [facility] Address: [address] [place] [address] Performed By: #### U TPR, 86200-6, 19431-3, 15025-3 ####[facility]ORATORYCLIA [id number] [address] Comprehensive metabolic 2000 panelon 06-15-2021 Albumin [Mass/Vol] 2.8 g/dL Low 3.9-4.9 [facility] Comment on above: Order Comment: Speci men Type: BLOOD SPECIMENOrdering Facility: [facility] Address: [address] [place] [address] Performed By: #### 2 4323-8 ####[facility]ORATORYCLIA [id number] [address] [place] ALP [Catalytic activity/Vol] 74 U/L Normal 38-113 [facility] Comment on above: Order Comment: Speci men Type: BLOOD SPECIMENOrdering Facility: [facility] Address: [address] [place] [address] Performed By: #### 2 4323-8 ####[facility]ORATORYCLIA [id number] [address] [place] ALT With P-5'-P [Catalytic activity/Vol] 50 U/L Normal 10-54 [facility] Comment on above: Order Comment: Speci men Type: BLOOD SPECIMENOrdering Facility: [facility] Address: [address] [place] [address] Performed By: #### 2 4323-8 ####[facility] LABORATORYCLIA [id number] [place] [address] [place] Anion gap [Moles/Vol] 12 mmol/L Normal 9-18 [facility] Comment on above: Order Comment: Speci men Type: BLOOD SPECIMENOrdering Facility: [facility] Address: [address] [place] [address] Performed By: #### 2 4323-8 ####[facility]ORATORYCLIA [id number] [address] [place] AST With P-5'-P [Catalytic activity/Vol] 36 U/L Normal 14-40 [facility] Comment on above: Order Comment: Speci men Type: BLOOD SPECIMENOrdering Facility: [facility] Address: [address] [place] [address] Performed By: #### 2 4323-8 ####[facility]ORATORYCLIA [id number] [place] [address] [place] Bilirubin [Mass/Vol] 0.5 mg/dL Normal 0.2-1.3 [facility] Comment on above: Order Comment: Speci men Type: BLOOD SPECIMENOrdering Facility: [facility] Address: [address] [place] [address] Performed By: #### 2 4323-8 ####[facility]ORATORYCLIA [id number] [address] [place] Calcium [Mass/Vol] 8.8 mg/dL Normal 8.5-10.2 [facility] Comment on above: Order Comment: Speci men Type: BLOOD SPECIMENOrdering Facility: [facility] Address: [address] [place] [address] Performed By: #### 2 4323-8 ####[facility] LABORATORYCLIA [id number] [address] [place] Chloride [Moles/Vol] 126 mmol/L High 97-105 [facility] Comment on above: Order Comment: Speccara feldman Type: BLOOD SPECIMENOrdering Facility: [facility] Address: [address] [place] [address] Performed By: #### 2 4323-8 ####[facility]ORATORYCLIA [id number] [address] [place] CO2 [Moles/Vol] 24 mmol/L Normal 22-30 [facility] Comment on above: Order Comment: Johni francia Type: BLOOD SPECIMENOrdering Facility: [facility] Address: [address] [place] [address] Performed By: #### 2 4323-8 ####[facility]ORATORYCLIA [id number] [address] [place] Creatinine [Mass/Vol] 0.84 mg/dL Normal 0.73-1.22 [facility] Comment on above: Order Comment: Johncara feldman Type: BLOOD SPECIMENOrdering Facility: [facility] Address: [address] [place] [address] Performed By: #### 2 4323-8 ####[facility] LABORATORYCLIA [id number] [address] [place] GFR/1.73 sq M.predicted MDRD (S/P/Bld) [Vol rate/Area] mL/min/{1.73_m2} Normal [facility] Comment on above: Order Comment: Johncara feldman Type: BLOOD SPECIMENOrdering Facility: [facility] Address: [address] [place] [address] Result Comment: >60e GFR (Estimated GFR) Units [...] actual GFR. Performed By: #### 2 4323-8 ####[facility] LABORATORYCLIA [id number] [place] [address] [place] Glucose [Mass/Vol] 142 mg/dL High 74-99 [facility] Comment on above: Order Comment: Shira feldman Type: BLOOD SPECIMENOrdering Facility: [facility] Address: [address] [place] [address] Result Comment: The [place] Diabetes Association (ADA) provides guidance for cutoff [...] Standards of Medical Care in Diabetes 2016, [place] [employer]. Diabetes Care. 2016.39(Suppl 1). Performed By: #### 2 4323-8 ####[facility] LABORATORYCLIA [id number] [place] [address] [place] Potassium [Moles/Vol] 3.8 mmol/L Normal 3.7-5.1 [facility] Comment on above: Order Comment: Shira feldman Type: BLOOD SPECIMENOrdering Facility: [facility] Address: [address] [address] Performed By: #### 2 4323-8 ####[facility]ORATORYCLIA [id number] [place] [address] [place] Protein [Mass/Vol] 6.1 g/dL Low 6.3-8.0 [facility] Comment on above: Order Comment: Shira feldman Type: BLOOD SPECIMENOrdering Facility: [facility] Address: [address] [address] Performed By: #### 2 4323-8 ####[facility] LABORATORYCLIA [id number] [place] [address] [place] Sodium [Moles/Vol] 162 mmol/L High 136-144 [facility] Comment on above: Order Comment: Speci men Type: BLOOD SPECIMENOrdering Facility: [facility] Address: [address] [place] [address] Performed By: #### 2 4323-8 ####[facility] LABORATORYCLIA [id number] [place] [address] [place] Urea nitrogen [Mass/Vol] 33 mg/dL High 9-24 [facility] Comment on above: Order Comment: Speci men Type: BLOOD SPECIMENOrdering Facility: [facility] Address: [address] [place] [address] Performed By: #### 2 4323-8 ####[facility] LABORATORYCLIA [id number] [address] [place] Creatinine Unsp time (U) [Ma ss/Vol]on 06-15-2021 Creatinine (U) [Mass/Vol] 87.0 mg/dL Normal 46.8-314.5 [facility] Comment on above: Order Comment: Speci men Type: URINE SPECIMENOrdering Facility: [facility] Address: [address] [place] [address] Performed By: #### U TPR, 95041-5, 88691-1, 74487-7 ####[facility] LABORATORYCLIA [id number] [address] [place] HIGH SENSITIVITY TROPONIN To n 06-15-2021 HIGH SENSITIVITY TAMIKO 23 ng/L High <12 [facility] Comment on above: Order Comment: Speci men Type: BLOOD SPECIMENOrdering Facility: [facility] Address: [address] [place] [address] Result Comment: When assessing risk for acute [...] day MACE. Performed By: #### P JULIANNE, 00868-6, HSTNT ####[facility]ORATORYCLIA [id number] [address] STATES OF [facility] Lactate (Bld) [Moles/Vol]on 06-15-2021 Lactate [Moles/Vol] 0.8 mmol/L Normal 0.5-2.2 [facility] Comment on above: Order Comment: Speci men Type: BLOOD SPECIMENOrdering Facility: [facility] Address: [address] [place] [address] Performed By: #### 3 2693-4 ####[facility] [id number] [address] [place] Magnesium [facility]-ncon 06-15 Magnesium [Mass/Vol] 3.0 mg/dL High 1.7-2.3 [facility] Comment on above: Order Comment: Speci men Type: BLOOD SPECIMEN Performed By: #### 2 4321-2, 2777-1, 38220-0 ####[facility]ORATORYCLIA [id number] [address] [facility]15 Natriuretic peptide.B prohormone N-Terminal [Mass/Vol] 265 pg/mL High <125 [facility] Comment on above: Order Comment: Speci men Type: BLOOD SPECIMENOrdering Facility: [facility] Address: [address] [address] Performed By: #### P JULIANNE, 22916-1, HSTNT ####[facility]ORATORYCLIA [id number] [address] [place] Osmolality Uron 06-15-2021 Osmolality (U) [Osmolality] 606 mosm/kg Normal 50-1,200 [facility] Comment on above: Order Comment: Speci men Type: URINE SPECIMENOrdering Facility: [facility] Address: [address] [place] [address] Performed By: #### 2 695-5 ####[facility]ORATORYCLIA [id number] [address] PROCALCITONIN (LAB)on 2021 Procalcitonin [Mass/Vol] 0.21 ng/mL High <0.09 [facility] Comment on above: Order Comment: Speci men Type: BLOOD SPECIMENOrdering Facility: [facility] Address: [address] [place] [address] Result Comment: For a guided interpretation of test results, please visit the Change in Procalcitonin Calculator, [email or web address]. Performed By: #### P JULIANNE, 2951-2 ####[facility]ORATORYCLIA [id number] [address] Procalcitonin [Mass/Vol] 0.17 ng/mL High <0.09 [facility] Comment on above: Order Comment: Speci men Type: BLOOD SPECIMENOrdering Facility: [facility] Address: [address] [place] [address] Result Comment: For a guided interpretation of test results, please visit the Change in Procalcitonin Calculator, [email or web address]. Performed By: #### P JULIANNE, 00138-7, HSTNT ####[facility]ORATORYCLIA [id number] [address] PROTEIN RANDOM URon 06-15-19 22 Protein (U) [Mass/Vol] 175 mg/dL High 0-20 [facility] Comment on above: Order Comment: Speci men Type: URINE SPECIMENOrdering Facility: [facility] Address: [address] [place] [address] Performed By: #### U TPR, 25725-8, 92286-4, 42839-8 ####[facility]ORATORYCLIA [id number] [address] PT panel Coag (PPP)on 2021 INR Coag (PPP) [Relative time] 1.1 {INR} Normal <1.4 [facility] Comment on above: Order Comment: Shira feldman Type: BLOOD SPECIMENOrdering Facility: [facility] Address: [address] [place] [address] Result Comment: Yris min K Antagonist (VKA) Therapeutic Range: INR 2 to 3 (Target INR of 2.5)Note: For patients treated with VKA drugs, such as warfarin, the [place] [employer] 2012 Guideline recommends [...] al. Chest 2012, 141:7S-47SNishimura RA, et al. [facility] 2017, 70: 252-289 Performed By: #### 3 4528-0, 20268-7 ####[facility] LABORATORYCLIA [id number] [place] [address] [place] PT Coag (PPP) [Time] 11.4 s Normal <13.1 [facility] Comment on above: Order Comment: Shira feldman Type: BLOOD SPECIMENOrdering Facility: [facility] Address: [address] [place], [place] [address] Performed By: #### 3 4528-0, 62358-3 ####[facility]ORATORYCLIA [id number] [place] [address] [place] Phosphate SerPl-mCncon 06-15 Phosphate [Mass/Vol] 2.6 mg/dL Low 2.7-4.8 [facility] Comment on above: Order Comment: Shira feldman Type: BLOOD SPECIMEN Performed By: #### 2 4321-2, 2777-1, 59944-1 ####[facility]ORATORYCLIA [id number] [place] [address] [place] Sodium ?Tm Ur-sCncon 022 Sodium Unsp time (U) [Moles/Vol] 34 mmol/L Normal 14-216 [facility] Comment on above: Order Comment: Speci men Type: URINE SPECIMENOrdering Facility: [facility] Address: [address] [place] [address] Performed By: #### U TPR, 92269-6, 77042-4, 63421-8 ####[facility]ORATORYCLIA [id number] [address] [place] Sodium SerPl-sCncon 06-15-19 22 Sodium [Moles/Vol] 159 mmol/L High 136-144 [facility] Comment on above: Order Comment: Speci men Type: BLOOD SPECIMENOrdering Facility: [facility] Address: [address] [place] [address] Performed By: #### P JULIANNE, 2951-2 ####[facility]ORATORYCLIA [id number] [address] [place] THERAPY NTon 06-15-2021 THERAPY NT Normal [facility] Urinalysis complete panel (U )on 06-15-2021 Bacteria LM.HPF (Urine sed) [#/Area] None Seen Normal None Seen [facility] Comment on above: Order Comment: Speci men Type: URINE SPECIMENOrdering Facility: [facility] Address: [address] [place] [address] Performed By: #### 2 4356-8 ####[facility]ORATORYCLIA [id number] [address] [place] Bilirubin Ql (U) Negative Normal Negative [facility] Comment on above: Order Comment: Speci men Type: URINE SPECIMENOrdering Facility: [facility] Address: [address] [place] [address] Performed By: #### 2 4356-8 ####[facility]ORATORYCLIA [id number] [address] Clarity (Unsp spec) Cloudy Abnormal Clear [facility] Comment on above: Order Comment: Speci men Type: URINE SPECIMENOrdering Facility: [facility] Address: [address] [place] [address] Performed By: #### 2 4356-8 ####[facility]ORATORYCLIA [id number] [address] Color (U) Yellow Normal Yellow [facility] Comment on above: Order Comment: Speci men Type: URINE SPECIMENOrdering Facility: [facility] Address: [address] [place] [address] Performed By: #### 2 4356-8 ####[facility]ORATORYCLIA [id number] [address] Epithelial cells LM.HPF (Urine sed) [#/Area] 7.1 /[HPF] Normal [facility] Comment on above: Order Comment: Speci men Type: URINE SPECIMENOrdering Facility: [facility] Address: [address] [place] [address] Performed By: #### 2 4356-8 ####[facility]ORATORYCLIA [id number] [address] Glucose Test strip (U) [Mass/Vol] Negative Normal Negative [facility] Comment on above: Order Comment: Speci men Type: URINE SPECIMENOrdering Facility: [facility] Address: [address] [place] [address] Performed By: #### 2 4356-8 ####[facility]ORATORYCLIA [id number] [address] Granular casts (Urine sed) [#/Area] /[LPF] Abnormal 0 /LPF [facility] Comment on above: Order Comment: Speci men Type: URINE SPECIMENOrdering Facility: [facility] Address: [address] [place] [address] Performed By: #### 2 4356-8 ####[facility]ORATORYCLIA [id number] [address] [place] Hemoglobin Ql (U) Moderate Abnormal Negative [facility] Comment on above: Order Comment: Speci men Type: URINE SPECIMENOrdering Facility: [facility] Address: [address] [place] [address] Performed By: #### 2 4356-8 ####[facility]ORATORYCLIA [id number] [place] [address] [place] Hyaline casts (Urine sed) [#/Area] /[LPF] Abnormal 0 /LPF [facility] Comment on above: Order Comment: Speci men Type: URINE SPECIMENOrdering Facility: [facility] Address: [address] [place] [address] Performed By: #### 2 4356-8 ####[facility]ORATORYCLIA [id number] [address] STATES [facility] Ketones Ql (U) Negative Normal Negative [facility] Comment on above: Order Comment: Speci men Type: URINE SPECIMENOrdering Facility: [facility] Address: [address] [place] [address] Performed By: #### 2 4356-8 ####[facility]ORATORYCLIA [id number] [address] [place] Leukocyte esterase Test strip Ql (U) Negative Normal Negative [facility] Comment on above: Order Comment: Speci men Type: URINE SPECIMENOrdering Facility: [facility] Address: [address] [place] [address] Performed By: #### 2 4356-8 ####[facility]ATORYCLIA [id number] [place] [address] [place] Nitrite Ql (U) Negative Normal Negative [facility] Comment on above: Order Comment: Speci men Type: URINE SPECIMENOrdering Facility: [facility] Address: [facility] [address] Performed By: #### 2 4356-8 ####[facility]ATORYCLIA [id number] [address] pH (U) 6.0 [pH] Normal 5.0-8.0 [facility] Comment on above: Order Comment: Speci men Type: URINE SPECIMENOrdering Facility: [facility] Address: [address] [place] [address] Performed By: #### 2 4356-8 ####[facility]ORATORYCLIA [id number] [address] Protein (U) [Mass/Vol] 100 mg/dL Abnormal Negative [facility] Comment on above: Order Comment: Speci men Type: URINE SPECIMENOrdering Facility: [facility] Address: [address] [place] [address] Performed By: #### 2 4356-8 ####[facility]CLIA [id number] [address] STATES [facility] RBC LM.HPF (Urine sed) [#/Area] 0-3 /HPF Normal 0-3 /HPF [facility] Comment on above: Order Comment: Speci men Type: URINE SPECIMENOrdering Facility: [facility] Address: [address] [place] [address] Performed By: #### 2 4356-8 ####[facility]ORATORYCLIA [id number] [address] Specific gravity (U) [Rel density] 1.024 Normal 1.005-1.030 [facility] Comment on above: Order Comment: Speci men Type: URINE SPECIMENOrdering Facility: [facility] Address: [address] [place] [address] Performed By: #### 2 4356-8 ####[facility]ORATORYCLIA [id number] [address] Urobilinogen Ql (U) 0.2 EU/dL Normal 0.2-1.0 EU/dL [facility] Comment on above: Order Comment: Speci men Type: URINE SPECIMENOrdering Facility: [facility] Address: [address] [place] [address], [place] [address] Performed By: #### 2 4356-8 ####[facility]ORATORYCLIA [id number] [address] STATES [facility] WBC LM.HPF (Urine sed) [#/Area] 0-5 /HPF Normal 0-5 /HPF [facility] Comment on above: Order Comment: Speci men Type: URINE SPECIMENOrdering Facility: [facility] Address: [address] [place], [place] [address] [address] Performed By: #### 2 4356-8 ####[facility] LABORATORYCLIA [id number] [address] OF [facility] XR CHEST 1V FRONTALon 2021 XR CHEST 1V FRONTAL Normal [facility] XR CHEST 1V FRONTAL PORTon 0 06-15-2021 XR CHEST 1V FRONTAL PORT Normal [facility] XR CHEST 1V FRONTAL PORT Normal [facility] aPTT PPPon 06-15-2021 aPTT Coag (PPP) [Time] 30.9 s Normal 23.0-32.4 [facility] Comment on above: Order Comment: Speci men Type: BLOOD SPECIMENOrdering Facility: [facility] Address: [facility] [address] [address] Performed By: #### 3 4528-0, 79835-1 ####[facility]ORATORYCLIA [id number] [address] STATES OF [facility] Basic metabolic 2000 panelon 06-14-2021 Anion gap [Moles/Vol] 8 mmol/L Low 9-18 [facility] Comment on above: Order Comment: Speci men Type: BLOOD SPECIMEN Performed By: #### 2 4321-2, 2777-1, 87109-2 ####[facility]ORATORYCLIA [id number] [address] STATES OF [facility] Calcium [Mass/Vol] 8.9 mg/dL Normal 8.5-10.2 [facility] Comment on above: Order Comment: Speci men Type: BLOOD SPECIMEN Performed By: #### 2 4321-2, 2776-05, ####[facility]ORATORYCLIA [id number] [place], [place] [address] [place] [address] [place] [facility] Chloride [Moles/Vol] 121 mmol/L High 97-105 [facility] Comment on above: Order Comment: Speci men Type: BLOOD SPECIMEN Performed By: #### 2 4321-2, 2776-05, ####[facility]ATORYCLIA [id number] [address] [place] CO2 [Moles/Vol] 30 mmol/L Normal 22-30 [facility] Comment on above: Order Comment: Speci men Type: BLOOD SPECIMEN Performed By: #### 2 4321-2, 2776-05, ####[facility]ATORYCLIA [id number] [address] STATES OF [facility] Creatinine [Mass/Vol] 0.78 mg/dL Normal 0.73-1.22 [facility] Comment on above: Order Comment: Speci men Type: BLOOD SPECIMEN Performed By: #### 2 4321-2, 2776-05, ####[facility]ORATORYCLIA [id number] [address] [place] GFR/1.73 sq M.predicted [...] GFR. Performed By: #### 2 4321-2, 2776-05, ####[facility]ORATORYCLIA [id number] [place] [address] [place] Glucose [Mass/Vol] 132 mg/dL High 74-99 [facility] Comment on above: Order Comment: Speci men Type: BLOOD SPECIMEN Result Comment: The [place] Diabetes Association (ADA) provides guidance for cutoff [...] Standards of Medical Care in Diabetes 2016, [place] [employer]. Diabetes Care. 2016.39(Suppl 1). Performed By: #### 2 4321-2, 2776-05, ####[facility]ORATORYCLIA [id number] [place] [address] [place] Potassium [Moles/Vol] 3.7 mmol/L Normal 3.7-5.1 [facility] Comment on above: Order Comment: Speci men Type: BLOOD SPECIMEN Performed By: #### 2 1-2, 2776-05, ####[facility]ATORYCLIA [id number] [place] [address] [place] Sodium [Moles/Vol] 159 mmol/L High 136-144 [facility] Comment on above: Order Comment: Speci men Type: BLOOD SPECIMEN Performed By: #### 2 4321-2, 2776-05, ####[facility]ATORYCLIA [id number] [place] [address] [place] Urea nitrogen [Mass/Vol] 35 mg/dL High 9-24 [facility] Comment on above: Order Comment: Speci men Type: BLOOD SPECIMEN Performed By: #### 2 1-2, 2776-05, 29470-6 ####[facility]ORATORYCLIA [id number] [address] CASE MANAGEMon 06-14-2021 CASE MANAGEM Normal [facility] CBC panel Auto (Bld)on 06-14 Erythrocyte distribution width (RBC) [Ratio] 16.2 % High 11.5-15.0 [facility] Comment on above: Order Comment: Speci men Type: BLOOD SPECIMEN Performed By: #### 5 8410-2 ####[facility]ATORYCLIA [id number] [address] Hematocrit (Bld) [Volume fraction] 35.2 % Low 39.0-51.0 [facility] Comment on above: Order Comment: Speci men Type: BLOOD SPECIMEN Performed By: #### 5 8410-2 ####[facility]ATORYCLIA [id number] [address] Hemoglobin (Bld) [Mass/Vol] 10.1 g/dL Low 13.0-17.0 [facility] Comment on above: Order Comment: Speci men Type: BLOOD SPECIMEN Performed By: #### 5 8410-2 ####[facility]ORATORYCLIA [id number] [address] MCH (RBC) [Entitic mass] 27.2 pg Normal 26.0-34.0 [facility] Comment on above: Order Comment: Speci men Type: BLOOD SPECIMEN Performed By: #### 5 8410-2 ####[facility]ATORYCLIA [id number] [address] MCHC (RBC) [Mass/Vol] 28.7 g/dL Low 30.5-36.0 [facility] Comment on above: Order Comment: Speci men Type: BLOOD SPECIMEN Performed By: #### 5 8410-2 ####[facility]ATORYCLIA [id number] [address] MCV (RBC) [Entitic vol] 94.6 fL Normal 80.0-100.0 [facility] Comment on above: Order Comment: Speci men Type: BLOOD SPECIMEN Performed By: #### 5 8410-2 ####[facility]ATORYCLIA [id number] [address] Nucleated RBC (Bld) [#/Vol] 10*3/uL Normal <0.01 [facility] Comment on above: Order Comment: Speci men Type: BLOOD SPECIMEN Performed By: #### 5 8410-2 ####[facility]ATORYCLIA [id number] [address] Platelet mean volume (Bld) [Entitic vol] 11.0 fL Normal 9.0-12.7 [facility] Comment on above: Order Comment: Speci men Type: BLOOD SPECIMEN Performed By: #### 5 8410-2 ####[facility]ATORYCLIA [id number] [address] Platelets (Bld) [#/Vol] 287 10*3/uL Normal 150-400 [facility] Comment on above: Order Comment: Speci men Type: BLOOD SPECIMEN Performed By: #### 5 8410-2 ####[facility]ATORYCLIA [id number] [address] RBC (Bld) [#/Vol] 3.72 10*6/uL Low 4.20-6.00 [facility] Comment on above: Order Comment: Speci men Type: BLOOD SPECIMEN Performed By: #### 5 8410-2 ####[facility]ATORYCLIA [id number] [address] WBC (Bld) [#/Vol] 12.23 10*3/uL High 3.70-11.00 [facility] Comment on above: Order Comment: Speci men Type: BLOOD SPECIMEN Performed By: #### 5 8410-2 ####[facility]ATORYCLIA [id number] [address] Comprehensive metabolic 2000 panelon 06-14-2021 Albumin [Mass/Vol] 3.1 g/dL Low 3.9-4.9 [facility] Comment on above: Order Comment: Speci men Type: BLOOD SPECIMEN Performed By: #### 2 4323-8, HSTNT, 2776-05, ####[facility]ORATORYCLIA [id number] [place], [place] [address] [place] [address] ALP [Catalytic activity/Vol] 72 U/L Normal 38-113 [facility] Comment on above: Order Comment: Speci men Type: BLOOD SPECIMEN Performed By: #### 2 4323-8, HSTNT, 2776-05, ####[facility]ATORYCLIA [id number] [address] ALT With P-5'-P [Catalytic activity/Vol] 57 U/L High 10-54 [facility] Comment on above: Order Comment: Speci men Type: BLOOD SPECIMEN Performed By: #### 2 4323-8, HSTNT, 2776-05, ####[facility]ATORYCLIA [id number] [address] Anion gap [Moles/Vol] 9 mmol/L Normal 9-18 [facility] Comment on above: Order Comment: Speci men Type: BLOOD SPECIMEN Performed By: #### 2 4323-8, HSTNT, 2776-05, ####[facility]ATORYCLIA [id number] [address] AST With P-5'-P [Catalytic activity/Vol] 33 U/L Normal 14-40 [facility] Comment on above: Order Comment: Speci men Type: BLOOD SPECIMEN Performed By: #### 2 4323-8, HSTNT, 2776-05, ####[facility]ATORYCLIA [id number] [address] OF [facility] Bilirubin [Mass/Vol] 0.5 mg/dL Normal 0.2-1.3 [facility] Comment on above: Order Comment: Speci men Type: BLOOD SPECIMEN Performed By: #### 2 4323-8, HSTNT, 2776-05, ####[facility]ATORYCLIA [id number] [address] STATES OF [facility] Calcium [Mass/Vol] 8.8 mg/dL Normal 8.5-10.2 [facility] Comment on above: Order Comment: Speci men Type: BLOOD SPECIMEN Performed By: #### 2 4323-8, HSTNT, 2776-05, ####[facility]ATORYCLIA [id number] [address] STATES OF [facility] Chloride [Moles/Vol] 124 mmol/L High 97-105 [facility] Comment on above: Order Comment: Speci men Type: BLOOD SPECIMEN Performed By: #### 2 4323-8, HSTNT, 2776-05, ####[facility]ORYCLIA [id number] [address] STATES OF [facility] CO2 [Moles/Vol] 29 mmol/L Normal 22-30 [facility] Comment on above: Order Comment: Speci men Type: BLOOD SPECIMEN Performed By: #### 2 4323-8, HSTNT, 2776-05, ####[facility]ATORYCL[facility] [id number] [address] [place] Creatinine [Mass/Vol] 0.73 mg/dL Normal 0.73-1.22 [facility] Comment on above: Order Comment: Speci men Type: BLOOD SPECIMEN Performed By: #### 2 4323-8, HSTNT, 2776-05, ####[facility]ORATORYCLIA [id number] [address] [place] GFR/1.73 sq M.predicted [...] Performed By: #### 2 4323-8, HSTNT, 2776-05, ####[facility] LABORATORYCLIA [id number] [place] [address] [place] Glucose [Mass/Vol] 137 mg/dL High 74-99 [facility] Comment on above: Order Comment: Speci men Type: BLOOD SPECIMEN Result Comment: The [place] [employer] (ADA) provides guidance for cutoff [...] Standards of Medical Care in Diabetes 2016, [place] [employer]. Diabetes Care. 2016.39(Suppl 1). Performed By: #### 2 4323-8, HSTNT, 2776-05, ####[facility]ATORYCLIA [id number] [place] [address] [place] Potassium [Moles/Vol] 3.6 mmol/L Low 3.7-5.1 [facility] Comment on above: Order Comment: Speci men Type: BLOOD SPECIMEN Performed By: #### 2 4323-8, HSTNT, 2776-05, ####[facility]ATORYCLIA [id number] [address] Protein [Mass/Vol] 5.9 g/dL Low 6.3-8.0 [facility] Comment on above: Order Comment: Speci men Type: BLOOD SPECIMEN Performed By: #### 2 4323-8, HSTNT, 2777-1, 63929-2 ####[facility]ATORYCLIA [id number] [address] Sodium [Moles/Vol] 162 mmol/L High 136-144 [facility] Comment on above: Order Comment: Speci men Type: BLOOD SPECIMEN Performed By: #### 2 4323-8, HSTNT, 2776-, ####[facility]ATORYCLIA [id number] [address] Urea nitrogen [Mass/Vol] 33 mg/dL High 9-24 [facility] Comment on above: Order Comment: Speci men Type: BLOOD SPECIMEN Performed By: #### 2 4323-8, HSTNT, 2776-05, ####[facility]ATORYCLIA [id number] [address] HIGH SENSITIVITY TROPONIN To n 06-14-2021 [...] day MACE. Performed By: #### H STNT ####[facility]ATORYCLIA [id number] [address] HIGH SENSITIVITY TAMIKO 22 ng/L High [...] Performed By: #### 2 4323-8, HSTNT, 2776-05, ####[facility]ORYCLIA [id number] [address] Magnesium SerPl-mCncon 06-14 Magnesium [Mass/Vol] 2.9 mg/dL High 1.7-2.3 [facility] Comment on above: Order Comment: Speci men Type: BLOOD SPECIMEN Performed By: #### 2 4323-8, HSTNT, 2776-05, ####[facility]ATORYCLIA [id number] [address] Magnesium [Mass/Vol] 3.0 mg/dL High 1.7-2.3 [facility] Comment on above: Order Comment: Speci men Type: BLOOD SPECIMEN Performed By: #### 2 4321-2, 2776-05, ####[facility]ATORYCLIA [id number] [address] NURSING PROGon 06-14-2021 NURSING PROG Normal [facility] NUTRITIONon 06-14-2021 NUTRITION Normal [facility] Phosphate SerPl-mCncon 06-14 Phosphate [Mass/Vol] 2.4 mg/dL Low 2.7-4.8 [facility] Comment on above: Order Comment: Speci men Type: BLOOD SPECIMEN Performed By: #### 2 4323-8, HSTNT, 2776-05, ####[facility]CLIA [id number] [address] Phosphate [Mass/Vol] 3.2 mg/dL Normal 2.7-4.8 [facility] Comment on above: Order Comment: Speci men Type: BLOOD SPECIMEN Performed By: #### 2 4321-2, 2776-05, ####[facility]ORYCLIA [id number] [place], [place] [id number] [place] [address] [place] THERAPY NTon 06-14-2021 THERAPY [...] Performed By: #### 2 4321-2, , 2776-05 ####[facility]ATORYCLIA [id number] [address] STATES OF [facility] Calcium [Mass/Vol] 8.8 mg/dL Normal 8.5-10.2 [facility] Comment on above: Order Comment: Speci men Type: BLOOD SPECIMEN Performed By: #### 2 4321-2, , 2776-05 ####[facility]ORYCLIA [id number] [address] [place] Chloride [Moles/Vol] 120 mmol/L High 97-105 [facility] Comment on above: Order Comment: Speci men Type: BLOOD SPECIMEN Performed By: #### 2 4321-2, , 2776-05 ####[facility]ORYCLIA [id number] [place] [id number] [place] CO2 [Moles/Vol] 28 mmol/L Normal 22-30 [facility] Comment on above: Order Comment: Speci men Type: BLOOD SPECIMEN Performed By: #### 2 4321-2, , 2776-05 ####[facility]ORYCLIA [id number] [place] [address] [place] Creatinine [Mass/Vol] 0.78 mg/dL Normal 0.73-1.22 [facility] Comment on above: Order Comment: Speci [facility] Type: BLOOD SPECIMEN Performed By: #### 2 4321-2, 49125-3, 2777-1 ####[facility]ATORYCLIA [id number] [place] [address] [place] GFR/1.73 sq M.predicted [...] actual GFR. Performed By: #### 2 4321-2, 33689-9, 277-1 ####[facility]ATORYCLIA [id number] [place] [address] [place] Glucose [Mass/Vol] 126 mg/dL High 74-99 [facility] Comment on above: Order Comment: [facility] Type: BLOOD SPECIMEN Result Comment: The [place] [employer] (ADA) provides guidance for cutoff [...] Standards of Medical Care in Diabetes 2016, [place] [employer]. Diabetes Care. 2016.39(Suppl 1). Performed By: #### 2 4321-2, , 2776-05 ####[facility]ORYCLIA [id number] [place], [place] [address] [place] [address] [place] OF [facility] Potassium [Moles/Vol] 3.6 mmol/L Low 3.7-5.1 [facility] Comment on above: Order Comment: Speci men Type: BLOOD SPECIMEN Performed By: #### 2 4321-2, , 2776-05 ####[facility]ORYCLIA [id number] [place], [place] [address] [place] [address] [place] Sodium [Moles/Vol] 155 mmol/L High 136-144 [facility] Comment on above: Order Comment: Speci men Type: BLOOD SPECIMEN Performed By: #### 2 1-2, , 2776-05 ####[facility]ORYCLIA [id number] [place] [address] [place] Urea nitrogen [Mass/Vol] 36 mg/dL High 9-24 [facility] Comment on above: Order Comment: Speci men Type: BLOOD SPECIMEN Performed By: #### 2 1-2, , 2776-05 ####[facility]ORYCLIA [id number] [address] STATES OF [facility] Anion gap [Moles/Vol] 6 mmol/L Low 9-18 [facility] Comment on above: Order Comment: Speci men Type: BLOOD SPECIMEN Performed By: #### 2 4321-2, 2776-05, ####[facility]ORYCLIA [id number] [place] [address] [place] Calcium [Mass/Vol] 6.5 mg/dL Low 8.5-10.2 [facility] Comment on above: Order Comment: Speci men Type: BLOOD SPECIMEN Performed By: #### 2 4321-2, 2776-05, ####[facility]ORYCLIA [id number] [place] [address] [place] Chloride [Moles/Vol] 124 mmol/L High 97-105 [facility] Comment on above: Order Comment: Speci men Type: BLOOD SPECIMEN Performed By: #### 2 4321-2, 2776-05, ####[facility]ATORYCLIA [id number] [place] [address] [place] CO2 [Moles/Vol] 24 mmol/L Normal 22-30 [facility] Comment on above: Order Comment: Speci men Type: BLOOD SPECIMEN Performed By: #### 2 4321-2, 2776-05, ####[facility]ATORYCLIA [id number] [place] [address] [place] Creatinine [Mass/Vol] 0.61 mg/dL Low 0.73-1.22 [facility] Comment on above: Order Comment: Speci men Type: BLOOD SPECIMEN Performed By: #### 2 4321-2, 2776-05, ####[facility]ATORYCLIA [id number] [address] [place] GFR/1.73 sq M.predicted [...] GFR. Performed By: #### 2 4321-2, 2776-05, ####[facility]ATORYCLIA [id number] [place] [address] [place] Glucose [Mass/Vol] 100 mg/dL High 74-99 [facility] Comment on above: Order Comment: Speci men Type: BLOOD SPECIMEN Result Comment: The [place] [employer] (ADA) provides guidance for cutoff [...] Standards of Medical Care in Diabetes 2016, [place] [employer]. Diabetes Care. 2016.39(Suppl 1). Performed By: #### 2 4321-2, 2776-05, ####[facility]ATORYCLIA [id number] [address] STATES OF [facility] Potassium [Moles/Vol] 2.7 mmol/L Low 3.7-5.1 [facility] Comment on above: Order Comment: Speci men Type: BLOOD SPECIMEN Performed By: #### 2 4321-2, 2776-05, ####[facility]ATORYCLIA [id number] [address] STATES [facility] Sodium [Moles/Vol] 154 mmol/L High 136-144 [facility] Comment on above: Order Comment: Speci men Type: BLOOD SPECIMEN Performed By: #### 2 4321-2, 2776-05, ####[facility]ATORYCLIA [id number] [place], [place] [address] [place] [address] [place] Urea nitrogen [Mass/Vol] 29 mg/dL High 9-24 [facility] Comment on above: Order Comment: Speci men Type: BLOOD SPECIMEN Performed By: #### 2 4321-2, 2776-05, ####[facility]ATORYCLIA [id number] [address] OF [facility] CASE MANAGEMon 06-13-2021 CASE MANAGEM Normal [facility] CBC panel Auto (Bld)on 06-13 Erythrocyte distribution width (RBC) [Ratio] 15.9 % High 11.5-15.0 [facility] Comment on above: Order Comment: Speci men Type: BLOOD SPECIMEN Performed By: #### 5 8410-2 ####[facility]ATORYCLIA [id number] [address] Hematocrit (Bld) [Volume fraction] 34.3 % Low 39.0-51.0 [facility] Comment on above: Order Comment: Speci men Type: BLOOD SPECIMEN Performed By: #### 5 8410-2 ####[facility]ATORYCLIA [id number] [address] Hemoglobin (Bld) [Mass/Vol] 9.9 g/dL Low 13.0-17.0 [facility] Comment on above: Order Comment: Speci men Type: BLOOD SPECIMEN Performed By: #### 5 8410-2 ####[facility]ATORYCLIA [id number] [address] MCH (RBC) [Entitic mass] 27.3 pg Normal 26.0-34.0 [facility] Comment on above: Order Comment: Speci men Type: BLOOD SPECIMEN Performed By: #### 5 8410-2 ####[facility]ATORYCLIA [id number] [address] MCHC (RBC) [Mass/Vol] 28.9 g/dL Low 30.5-36.0 [facility] Comment on above: Order Comment: Speci men Type: BLOOD SPECIMEN Performed By: #### 5 8410-2 ####[facility]ORYCLIA [id number] [address] MCV (RBC) [Entitic vol] 94.5 fL Normal 80.0-100.0 [facility] Comment on above: Order Comment: Speci men Type: BLOOD SPECIMEN Performed By: #### 5 8410-2 ####[facility]ATORYCLIA [id number] [address] Nucleated RBC (Bld) [#/Vol] 10*3/uL Normal <0.01 [facility] Comment on above: Order Comment: Speci men Type: BLOOD SPECIMEN Performed By: #### 5 8410-2 ####[facility]ORYCLIA [id number] [address] Platelet mean volume (Bld) [Entitic vol] 11.3 fL Normal 9.0-12.7 [facility] Comment on above: Order Comment: Speci men Type: BLOOD SPECIMEN Performed By: #### 5 8410-2 ####[facility]ATORYCLIA [id number] [address] Platelets (Bld) [#/Vol] 269 10*3/uL Normal 150-400 [facility] Comment on above: Order Comment: Speci men Type: BLOOD SPECIMEN Performed By: #### 5 8410-2 ####[facility]ORYCLIA [id number] [address] RBC (Bld) [#/Vol] 3.63 10*6/uL Low 4.20-6.00 [facility] Comment on above: Order Comment: Speci men Type: BLOOD SPECIMEN Performed By: #### 5 8410-2 ####[facility]ORYCLIA [id number] [address] WBC (Bld) [#/Vol] 12.77 10*3/uL High 3.70-11.00 [facility] Comment on above: Order Comment: Speci men Type: BLOOD SPECIMEN Performed By: #### 5 8410-2 ####[facility]ATORYCLIA [id number] [address] Gas and Carbon monoxide pane l (BldV)on 06-13-2021 Base excess Calc (BldV) [Moles/Vol] 5.7 mmol/L High 0-2 [facility] Comment on above: Order Comment: Speci men Type: VENOUS BLOOD SPECIMEN Performed By: #### 2 4344-4 ####[facility]ORYCLIA [id number] [address] Body temperature 99.5 [degF] Normal [facility] Comment on above: Order Comment: Speci men Type: VENOUS BLOOD SPECIMEN Performed By: #### 2 4344-4 ####[facility]ATORYCLIA [id number] [address] CALCIUM IONIZED, PH CORRECTED 1.24 mmol/L Normal 1.08-1.30 [facility] Comment on above: Order Comment: Speci men Type: VENOUS BLOOD SPECIMEN Performed By: #### 2 4344-4 ####[facility]ATORYCLIA [id number] [address] Calcium.ionized (BldV) [Mass/Vol] 1.23 mmol/L Normal 1.08-1.30 [facility] Comment on above: Order Comment: Speci men Type: VENOUS BLOOD SPECIMEN Performed By: #### 2 4344-4 ####[facility]ORYCLIA [id number] [address] Carboxyhemoglobin (BldV) [Mass fraction] 1.2 % Normal 0.0-2.0 [facility] Comment on above: Order Comment: Speci men Type: VENOUS BLOOD SPECIMEN Result Comment: Carb oxyhemoglobin Reference Range for Smokers: 2.0-8.0% Performed By: #### 2 4344-4 ####[facility]ORYCLIA [id number] [address] CO2 (BldV) [Partial pressure] 48 mm[Hg] Normal 42-55 [facility] Comment on above: Order Comment: Speci men Type: VENOUS BLOOD SPECIMEN Performed By: #### 2 4344-4 ####[facility]CLIA [id number] [address] CO2 [Moles/Vol] 28.2 mmol/L Normal 25-29 [facility] Comment on above: Order Comment: Speci men Type: VENOUS BLOOD SPECIMEN Performed By: #### 2 4344-4 ####[facility]ORYCLIA [id number] [address] CO2 adjusted to patient's actual temperature (BldV) [Partial pressure] 49 mmHg Normal 42-55 [facility] Comment on above: Order Comment: Speci men Type: VENOUS BLOOD SPECIMEN Performed By: #### 2 4344-4 ####[facility]ORYCLIA [id number] [address] Glucose [Mass/Vol] 131 mg/dL High 60-105 [facility] Comment on above: Order Comment: Speci men Type: VENOUS BLOOD SPECIMEN Performed By: #### 2 4344-4 ####[facility]ORYCLIA [id number] [address] HCO3 (Bld) [Moles/Vol] 30.6 mmol/L High 24-28 [facility] Comment on above: Order Comment: Speci men Type: VENOUS BLOOD SPECIMEN Performed By: #### 2 4344-4 ####[facility]ORYCLIA [id number] [address] Hematocrit (Bld) [Volume fraction] 32.8 % Low 39.0-51.0 [facility] Comment on above: Order Comment: Speci men Type: VENOUS BLOOD SPECIMEN Performed By: #### 2 4344-4 ####[facility]CLIA [id number] [address] Hemoglobin (Bld) [Mass/Vol] 10.6 g/dL Low 13.0-17.0 [facility] Comment on above: Order Comment: Speci men Type: VENOUS BLOOD SPECIMEN Performed By: #### 2 4344-4 ####[facility]ORYCLIA [id number] [address] [place] L[place] 6 Liters/min Normal [facility] Comment on above: Order Comment: Speci men Type: VENOUS BLOOD SPECIMEN Performed By: #### 2 4344-4 ####[facility]ORYCLIA [id number] [place], [place] [id number] [place] [address] [place] Methemoglobin (Bld) [Mass fraction] 1.0 % Normal 0.0-1.5 [facility] Comment on above: Order Comment: Speci men Type: VENOUS BLOOD SPECIMEN Performed By: #### 2 4344-4 ####[facility]ORYCLIA [id number] [address] O2 THERAPY NC = Nasal Cannula Normal [facility] Comment on above: Order Comment: Speci men Type: VENOUS BLOOD SPECIMEN Performed By: #### 2 4344-4 ####[facility]ORYCLIA [id number] [address] Oxygen (BldV) [Partial pressure] 42 mm[Hg] Normal 35-45 [facility] Comment on above: Order Comment: Speci men Type: VENOUS BLOOD SPECIMEN Performed By: #### 2 4344-4 ####[facility]ORYCLIA [id number] [address] Oxygen adjusted to patient's actual temperature (BldV) [Partial pressure] 43.8 mmHg Normal 35-45 [facility] Comment on above: Order Comment: Speci men Type: VENOUS BLOOD SPECIMEN Performed By: #### 2 4344-4 ####[facility]CLIA [id number] [address] [place] Oxygen saturation in Blood 76.7 % Normal 60-85 [facility] Comment on above: Order Comment: Speci men Type: VENOUS BLOOD SPECIMEN Performed By: #### 2 4344-4 ####[facility]CLIA [id number] [address] Oxyhemoglobin (BldV) [Mass fraction] 75 % Normal 60-85 [facility] Comment on above: Order Comment: Speci men Type: VENOUS BLOOD SPECIMEN Performed By: #### 2 4344-4 ####[facility]ORYCLIA [id number] pH (BldV) 7.42 [pH] Normal 7.32-7.42 [facility] Comment on above: Order Comment: Speci men Type: VENOUS BLOOD SPECIMEN Performed By: #### 2 4344-4 ####[facility]ORYCLIA [id number] [address] pH adjusted to patient's actual temperature (BldV) 7.41 Normal 7.32-7.42 [facility] Comment on above: Order Comment: Speci men Type: VENOUS BLOOD SPECIMEN Performed By: #### 2 4344-4 ####[facility]ORYCLIA [id number] [address] Potassium [Moles/Vol] 3.5 mmol/L Normal 3.5-5.0 [facility] Comment on above: Order Comment: Speci men Type: VENOUS BLOOD SPECIMEN Performed By: #### 2 4344-4 ####[facility]ORYCLIA [id number] [address] STATES OF [facility] Sodium [Moles/Vol] 157 mmol/L High 136-144 [facility] Comment on above: Order Comment: Speci men Type: VENOUS BLOOD SPECIMEN Performed By: #### 2 4344-4 ####[facility]ORYCLIA [id number] [address] [place] Magnesium SerPl-mCncon 06-13 Magnesium [Mass/Vol] 3.0 mg/dL High 1.7-2.3 [facility] Comment on above: Order Comment: Speci men Type: BLOOD SPECIMEN Performed By: #### 2 4321-2, 62195-1, 2776-05 ####[facility]ORYCLIA [id number] [address] OF [facility] Magnesium [Mass/Vol] 2.2 mg/dL Normal 1.7-2.3 [facility] Comment on above: Order Comment: Speci men Type: BLOOD SPECIMEN Performed By: #### 2 4321-2, 2776, ####[facility]ORYCLIA [id number] [place] [address] [place] Phosphate SerPl-mCncon 06-13 Phosphate [Mass/Vol] 2.2 mg/dL Low 2.7-4.8 [facility] Comment on above: Order Comment: Speci men Type: BLOOD SPECIMEN Performed By: #### 2 4321-2, , 2776-05 ####[facility]ORYCLIA [id number] [place] [address] [place] [facility] Phosphate [Mass/Vol] 1.8 mg/dL Low 2.7-4.8 [facility] Comment on above: Order Comment: Speci men Type: BLOOD SPECIMEN Performed By: #### 2 4321-2, 2776-05, ####[facility]ORYCLIA [id number] [address] STATES [place] XR CHEST 1V [...] on above: Performed By: #### 6 11-4 ####[facility]ORYCLIA [id number] [place] [address] [place] Basic metabolic 2000 panelon 06-12-2021 Anion gap [Moles/Vol] 6 mmol/L Low 9-18 [facility] Comment on above: Order Comment: Speci men Type: BLOOD SPECIMEN Performed By: #### 2 777-1, 00359-4, ####[facility]ORYCLIA [id number] [place] [address] [place] Calcium [Mass/Vol] 8.7 mg/dL Normal 8.5-10.2 [facility] Comment on above: Order Comment: Speci men Type: BLOOD SPECIMEN Performed By: #### 2 777-1, 40946-7, ####[facility]ORYCLIA [id number] [address] Chloride [Moles/Vol] 118 mmol/L High 97-105 [facility] Comment on above: Order Comment: Speci men Type: BLOOD SPECIMEN Performed By: #### 2 777-1, 44162-6, ####[facility]ORYCLIA [id number] [address] [place] CO2 [Moles/Vol] 28 mmol/L Normal 22-30 [facility] Comment on above: Order Comment: Speci men Type: BLOOD SPECIMEN Performed By: #### 2 777-1, 97473-3, ####[facility]ORYCLIA [id number] [address] [place] Creatinine [Mass/Vol] 0.77 mg/dL Normal 0.73-1.22 [facility] Comment on above: Order Comment: Speci men Type: BLOOD SPECIMEN Performed By: #### 2 777-1, , ####[facility]ORYCLIA [id number] [address] [place] GFR/1.73 sq M.predicted [...] GFR. Performed By: #### 2 777-1, , ####[facility]ORYCLIA [id number] [place] [address] [place] Glucose [Mass/Vol] 116 mg/dL High 74-99 [facility] Comment on above: Order Comment: Speci men Type: BLOOD SPECIMEN Result Comment: The [place] [employer] (ADA) provides guidance for cutoff [...] Standards of Medical Care in Diabetes 2016, [place] [employer]. Diabetes Care. 2016.39(Suppl 1). Performed By: #### 2 777-1, , ####[facility]ORYCLIA [id number] [place] [address] [place] Potassium [Moles/Vol] 4.0 mmol/L Normal 3.7-5.1 [facility] Comment on above: Order Comment: Speci men Type: BLOOD SPECIMEN Performed By: #### 2 777-1, , ####[facility]ORYCLIA [id number] [place] [address] [place] Sodium [Moles/Vol] 152 mmol/L High 136-144 [facility] Comment on above: Order Comment: Speci men Type: BLOOD SPECIMEN Performed By: #### 2 777-1, , ####[facility]ORYCLIA [id number] [place] [address] [place] Urea nitrogen [Mass/Vol] 34 mg/dL High 9-24 [facility] Comment on above: Order Comment: Speci men Type: BLOOD SPECIMEN Performed By: #### 2 777-1, 59575-6, 58595-9 ####[facility]ORYCLIA [id number] [address] CBC panel Auto (Bld)on 06-12 Erythrocyte distribution width (RBC) [Ratio] 16.1 % High 11.5-15.0 [facility] Comment on above: Order Comment: Speci men Type: BLOOD SPECIMEN Performed By: #### 5 8410-2 ####[facility]ORYCLIA [id number] [address] Hematocrit (Bld) [Volume fraction] 32.8 % Low 39.0-51.0 [facility] Comment on above: Order Comment: Speci men Type: BLOOD SPECIMEN Performed By: #### 5 8410-2 ####[facility]ORYCLIA [id number] [address] Hemoglobin (Bld) [Mass/Vol] 9.9 g/dL Low 13.0-17.0 [facility] Comment on above: Order Comment: Speci men Type: BLOOD SPECIMEN Performed By: #### 5 8410-2 ####[facility]ORYCLIA [id number] [address] MCH (RBC) [Entitic mass] 28.4 pg Normal 26.0-34.0 [facility] Comment on above: Order Comment: Speci men Type: BLOOD SPECIMEN Performed By: #### 5 8410-2 ####[facility]ORYCLIA [id number] [address] MCHC (RBC) [Mass/Vol] 30.2 g/dL Low 30.5-36.0 [facility] Comment on above: Order Comment: Speci men Type: BLOOD SPECIMEN Performed By: #### 5 8410-2 ####[facility]ORYCLIA [id number] [address] MCV (RBC) [Entitic vol] 94.3 fL Normal 80.0-100.0 [facility] Comment on above: Order Comment: Speci men Type: BLOOD SPECIMEN Performed By: #### 5 8410-2 ####[facility]ORYCLIA [id number] [address] Nucleated RBC (Bld) [#/Vol] 10*3/uL Normal <0.01 [facility] Comment on above: Order Comment: Speci men Type: BLOOD SPECIMEN Performed By: #### 5 8410-2 ####[facility]ORATORYCLIA [id number] [address] Platelet mean volume (Bld) [Entitic vol] 11.2 fL Normal 9.0-12.7 [facility] Comment on above: Order Comment: Speci men Type: BLOOD SPECIMEN Performed By: #### 5 8410-2 ####[facility]ORATORYCLIA [id number] [address] Platelets (Bld) [#/Vol] 218 10*3/uL Normal 150-400 [facility] Comment on above: Order Comment: Speci men Type: BLOOD SPECIMEN Performed By: #### 5 8410-2 ####[facility]ORATORYCLIA [id number] [address] RBC (Bld) [#/Vol] 3.48 10*6/uL Low 4.20-6.00 [facility] Comment on above: Order Comment: Speci men Type: BLOOD SPECIMEN Performed By: #### 5 8410-2 ####[facility]ORATORYCLIA [id number] [address] WBC (Bld) [#/Vol] 13.33 10*3/uL High 3.70-11.00 [facility] Comment on above: Order Comment: Speci men Type: BLOOD SPECIMEN Performed By: #### 5 8410-2 ####[facility] [facility]ATORYCLIA [id number] [address] CONSULT PROGon 06-12-2021 CONSULT PROG Normal [...] BLOOD SPECIMEN Performed By: #### 2 777-1, 57336-6, 97025-6 ####[facility] LABORATORYCLIA [id number] [address] PT panel Coag (PPP)on 2021 INR Coag (PPP) [Relative time] 1.1 {INR} Normal 0.9-1.3 [facility] Comment on above: Order Comment: Speci men Type: BLOOD SPECIMEN Result Comment: Yris min K Antagonist (VKA) Therapeutic Range: INR 2 to 3 (Target INR of 2.5)Note: For patients treated with VKA drugs, such as warfarin, the [place] [employer] 2012 Guideline recommends [...] al. Chest 2012, 141:7S-47SNishimura RA, et al. [facility] 2017, 70: 252-289 Performed By: #### 3 4528-0 ####[facility] LABORATORYCLIA [id number] [place] [id number] [facility] PT Coag (PPP) [Time] 11.9 s Normal 9.7-13.0 [facility] Comment on above: Order Comment: Speci men Type: BLOOD SPECIMEN Performed By: #### 3 4528-0 ####[facility] LABORATORYCLIA [id number] [address] Phosphate SerPl-mCncon 06-12 Phosphate [Mass/Vol] 2.2 mg/dL Low 2.7-4.8 [facility] Comment on above: Order Comment: Speci men Type: BLOOD SPECIMEN Performed By: #### 2 777-1, 40045-2, 27897-6 ####[facility] LABORATORYCLIA [id number] [address] XR ABDOMEN 1V SUPINEon 06-12 XR ABDOMEN 1V SUPINE Normal [facility] ALLIED HEALTHon 06-11-2021 ALLIED HEALTH Normal [facility] Bacteria Bld Culton 06-11-19 22 Bacteria identified Cx Nom (Bld) CULTURE, BLOOD: No growth 5 days Normal [facility] Comment on above: Performed By: #### 6 00-7 ####[facility] LABORATORYCLIA [id number] [address] Bacteria identified Cx Nom (Bld) CULTURE, BLOOD: No growth 5 days Normal [facility] Comment on above: Performed By: #### 6 00-7 ####[facility] LABORATORYCLIA [id number] [address] Bacteria Ur Culton 2 Bacteria identified Cx Nom (U) CULTURE, URINE: No growth (<1,000 CFU/ml) [facility] Comment on above: Performed By: #### 6 30-4 ####[facility] LABORATORYCLIA [id number] [address] Basic metabolic 2000 panelon 06-11-2021 Anion gap [Moles/Vol] 9 mmol/L Normal 9-18 [facility] Comment on above: Order Comment: Speci men Type: BLOOD SPECIMEN Performed By: #### 1 9123-9, 2777, 03934-6 ####[facility] LABORATORYCLIA [id number] [address] STATES [facility] Calcium [Mass/Vol] 8.5 mg/dL Normal 8.5-10.2 [facility] Comment on above: Order Comment: Speci men Type: BLOOD SPECIMEN Performed By: #### 1 9123-9, 2777, 27364-0 ####[facility] LABORATORYCLIA [id number] [address] Chloride [Moles/Vol] 118 mmol/L High 97-105 [facility] Comment on above: Order Comment: Speci men Type: BLOOD SPECIMEN Performed By: #### 1 9123-9, 2776-05, ####[facility] LABORATORYCLIA [id number] [address] CO2 [Moles/Vol] 27 mmol/L Normal 22-30 [facility] Comment on above: Order Comment: Speci men Type: BLOOD SPECIMEN Performed By: #### 1 9123-9, 2776-05, ####[facility] LABORATORYCLIA [id number] [address] STATES OF [facility] Creatinine [Mass/Vol] 0.75 mg/dL Normal 0.73-1.22 [facility] Comment on above: Order Comment: Speci men Type: BLOOD SPECIMEN Performed By: #### 1 9123-9, 27711-04, ####[facility] LABORATORYCLIA [id number] [address] [place] GFR/1.73 sq M.predicted [...] GFR. Performed By: #### 1 9123-9, 2777-, 55624-0 ####[facility] LABORATORYCLIA [id number] [address] OF [facility] Glucose [Mass/Vol] 142 mg/dL High 74-99 [facility] Comment on above: Order Comment: Speci men Type: BLOOD SPECIMEN Result Comment: The [place] [employer] (ADA) provides guidance for cutoff [...] Standards of Medical Care in Diabetes 2016, [place] [employer]. Diabetes Care. 2016.39(Suppl 1). Performed By: #### 1 9123-9, 2777, 08110-2 ####[facility] LABORATORYCLIA [id number] [address] STATES OF [facility] Potassium [Moles/Vol] 3.6 mmol/L Low 3.7-5.1 [facility] Comment on above: Order Comment: Speci men Type: BLOOD SPECIMEN Performed By: #### 1 9123-9, 2777, 67098-0 ####[facility] LABORATORYCLIA [id number] [address] STATES OF [facility] Sodium [Moles/Vol] 154 mmol/L High 136-144 [facility] Comment on above: Order Comment: Speci men Type: BLOOD SPECIMEN Performed By: #### 1 9123-9, 2777-1, 50605-0 ####[facility] LABORATORYCLIA [id number] [address] Urea nitrogen [Mass/Vol] 31 mg/dL High 9-24 [facility] Comment on above: Order Comment: Speci men Type: BLOOD SPECIMEN Performed By: #### 1 9123-9, 2777-1, 33730-8 ####[facility] LABORATORYCLIA [id number] [address] C diff Tox gens Stl Ql MEGAN+p robeon 06-11-2021 C. difficile toxin genes MEGAN+probe Ql (Stl) Negative Normal Negative for C. difficile toxin by PCR [facility] Comment on above: Order Comment: Speci men Type: STOOL SPECIMEN Performed By: #### 5 4067-4 ####[facility] LABORATORYCLIA [id number] [address] STATES [facility] CBC W Auto Differential pane l (Bld)on 06-11-2021 Basophils (Bld) [#/Vol] 0.03 10*3/uL Normal <0.11 [facility] Comment on above: Order Comment: Speci men Type: BLOOD SPECIMEN Performed By: #### 5 7021-8 ####[facility] LABORATORYCLIA [id number] [address] Basophils/100 WBC (Bld) 0.2 % Normal [facility] Comment on above: Order Comment: Speci men Type: BLOOD SPECIMEN Performed By: #### 5 7021-8 ####[facility] LABORATORYCLIA [id number] [address] Differential cell count method Nom (Bld) Auto Normal [facility] Comment on above: Order Comment: Speci men Type: BLOOD SPECIMEN Performed By: #### 5 7021-8 ####[facility] LABORATORYCLIA [id number] [address] [place] [facility] Eosinophils (Bld) [#/Vol] 0.19 10*3/uL Normal <0.46 [facility] Comment on above: Order Comment: Speci men Type: BLOOD SPECIMEN Performed By: #### 5 7021-8 ####[facility] LABORATORYCLIA [id number] [address] Eosinophils/100 WBC (Bld) 1.5 % Normal [facility] Comment on above: Order Comment: Speci men Type: BLOOD SPECIMEN Performed By: #### 5 7021-8 ####[facility]ORATORYCLIA [id number] [address] Erythrocyte distribution width (RBC) [Ratio] 16.3 % High 11.5-15.0 [facility] Comment on above: Order Comment: Speci men Type: BLOOD SPECIMEN Performed By: #### 5 7021-8 ####[facility] LABORATORYCLIA [id number] [address] Hematocrit (Bld) [Volume fraction] 32.1 % Low 39.0-51.0 [facility] Comment on above: Order Comment: Speci men Type: BLOOD SPECIMEN Performed By: #### 5 7021-8 ####[facility] LABORATORYCLIA [id number] [address] Hemoglobin (Bld) [Mass/Vol] 9.3 g/dL Low 13.0-17.0 [facility] Comment on above: Order Comment: Speci men Type: BLOOD SPECIMEN Performed By: #### 5 7021-8 ####[facility] LABORATORYCLIA [id number] [address] IMMATURE GRAN % 0.6 % Normal [facility] Comment on above: Order Comment: Speci men Type: BLOOD SPECIMEN Performed By: #### 5 7021-8 ####[facility]ATORYCLIA [id number] [address] IMMATURE GRAN ABS 0.08 k/uL Normal <0.10 [facility] Comment on above: Order Comment: Speci men Type: BLOOD SPECIMEN Performed By: #### 5 7021-8 ####[facility] LABORATORYCLIA [id number] [address] Lymphocytes (Bld) [#/Vol] 1.65 10*3/uL Normal 1.00-4.00 [facility] Comment on above: Order Comment: Speci men Type: BLOOD SPECIMEN Performed By: #### 5 7021-8 ####[facility] LABORATORYCLIA [id number] [address] Lymphocytes/100 WBC (Bld) 12.8 % Normal [facility] Comment on above: Order Comment: Speci men Type: BLOOD SPECIMEN Performed By: #### 5 7021-8 ####[facility] LABORATORYCLIA [id number] [address] MCH (RBC) [Entitic mass] 27.2 pg Normal 26.0-34.0 [facility] Comment on above: Order Comment: Speci men Type: BLOOD SPECIMEN Performed By: #### 5 7021-8 ####[facility] LABORATORYCLIA [id number] [address] MCHC (RBC) [Mass/Vol] 29.0 g/dL Low 30.5-36.0 [facility] Comment on above: Order Comment: Speci men Type: BLOOD SPECIMEN Performed By: #### 5 7021-8 ####[facility] LABORATORYCLIA [id number] [address] MCV (RBC) [Entitic vol] 93.9 fL Normal 80.0-100.0 [facility] Comment on above: Order Comment: Speci men Type: BLOOD SPECIMEN Performed By: #### 5 7021-8 ####[facility] LABORATORYCLIA [id number] [address] Monocytes (Bld) [#/Vol] 0.68 10*3/uL Normal <0.87 [facility] Comment on above: Order Comment: Speci men Type: BLOOD SPECIMEN Performed By: #### 5 7021-8 ####[facility]ORATORYCLIA [id number] [address] Monocytes/100 WBC (Bld) 5.3 % Normal [facility] Comment on above: Order Comment: Speci men Type: BLOOD SPECIMEN Performed By: #### 5 7021-8 ####[facility]ATORYCLIA [id number] [address] Neutrophils (Bld) [#/Vol] 10.22 10*3/uL High 1.45-7.50 [facility] Comment on above: Order Comment: Speci men Type: BLOOD SPECIMEN Performed By: #### 5 7021-8 ####[facility]ORATORYCLIA [id number] [address] Neutrophils/100 WBC (Bld) 79.6 % Normal [facility] Comment on above: Order Comment: Speci men Type: BLOOD SPECIMEN Performed By: #### 5 7021-8 ####[facility]ORATORYCLIA [id number] [address] Nucleated RBC (Bld) [#/Vol] 10*3/uL Normal <0.01 [facility] Comment on above: Order Comment: Speci men Type: BLOOD SPECIMEN Performed By: #### 5 7021-8 ####[facility]ORATORYCLIA [id number] [address] Nucleated RBC/100 WBC (Bld) [Ratio] 0.0 /100 WBC Normal 0.0 [facility] Comment on above: Order Comment: Speci men Type: BLOOD SPECIMEN Performed By: #### 5 7021-8 ####[facility]ORATORYCLIA [id number] [address] Platelet mean volume (Bld) [Entitic vol] 11.1 fL Normal 9.0-12.7 [facility] Comment on above: Order Comment: Speci men Type: BLOOD SPECIMEN Performed By: #### 5 7021-8 ####[facility] LABORATORYCLIA [id number] [address] Platelets (Bld) [#/Vol] 188 10*3/uL Normal 150-400 [facility] Comment on above: Order Comment: Speci men Type: BLOOD SPECIMEN Performed By: #### 5 7021-8 ####[facility] LABORATORYCLIA [id number] [address] RBC (Bld) [#/Vol] 3.42 10*6/uL Low 4.20-6.00 [facility] Comment on above: Order Comment: Speci men Type: BLOOD SPECIMEN Performed By: #### 5 7021-8 ####[facility] LABORATORYCLIA [id number] [address] WBC (Bld) [#/Vol] 12.85 10*3/uL High 3.70-11.00 [facility] Comment on above: Order Comment: Speci men Type: BLOOD SPECIMEN Performed By: #### 5 7021-8 ####[facility] LABORATORYCLIA [id number] [address] CBC panel Auto (Bld)on 06-11 Erythrocyte distribution width (RBC) [Ratio] 16.2 % High 11.5-15.0 [facility] Comment on above: Order Comment: Speci men Type: BLOOD SPECIMEN Performed By: #### 5 8410-2 ####[facility] LABORATORYCLIA [id number] [address] Hematocrit (Bld) [Volume fraction] 34.5 % Low 39.0-51.0 [facility] Comment on above: Order Comment: Speci men Type: BLOOD SPECIMEN Performed By: #### 5 8410-2 ####[facility] LABORATORYCLIA [id number] [address] Hemoglobin (Bld) [Mass/Vol] 10.3 g/dL Low 13.0-17.0 [facility] Comment on above: Order Comment: Speci men Type: BLOOD SPECIMEN Performed By: #### 5 8410-2 ####[facility] LABORATORYCLIA [id number] [address] MCH (RBC) [Entitic mass] 28.1 pg Normal 26.0-34.0 [facility] Comment on above: Order Comment: Speci men Type: BLOOD SPECIMEN Performed By: #### 5 8410-2 ####[facility] LABORATORYCLIA [id number] [address] MCHC (RBC) [Mass/Vol] 29.9 g/dL Low 30.5-36.0 [facility] Comment on above: Order Comment: Speci men Type: BLOOD SPECIMEN Performed By: #### 5 8410-2 ####[facility] LABORATORYCLIA [id number] [address] MCV (RBC) [Entitic vol] 94.3 fL Normal 80.0-100.0 [facility] Comment on above: Order Comment: Speci men Type: BLOOD SPECIMEN Performed By: #### 5 8410-2 ####[facility] LABORATORYCLIA [id number] [address] Nucleated RBC (Bld) [#/Vol] 10*3/uL Normal <0.01 [facility] Comment on above: Order Comment: Speci men Type: BLOOD SPECIMEN Performed By: #### 5 8410-2 ####[facility] LABORATORYCLIA [id number] [address] Platelet mean volume (Bld) [Entitic vol] 10.9 fL Normal 9.0-12.7 [facility] Comment on above: Order Comment: Speci men Type: BLOOD SPECIMEN Performed By: #### 5 8410-2 ####[facility] LABORATORYCLIA [id number] [address] Platelets (Bld) [#/Vol] 210 10*3/uL Normal 150-400 [facility] Comment on above: Order Comment: Speci men Type: BLOOD SPECIMEN Performed By: #### 5 8410-2 ####[facility] LABORATORYCLIA [id number] [place], [place] [address] [place] [address] [place] [facility] RBC (Bld) [#/Vol] 3.66 10*6/uL Low 4.20-6.00 [facility] Comment on above: Order Comment: Speci men Type: BLOOD SPECIMEN Performed By: #### 5 8410-2 ####[facility] LABORATORYCLIA [id number] [address] STATES OF [facility] WBC (Bld) [#/Vol] 13.03 10*3/uL High 3.70-11.00 [facility] Comment on above: Order Comment: Speci men Type: BLOOD SPECIMEN Performed By: #### 5 8410-2 ####[facility] LABORATORYCLIA [id number] [address] CONSULT PROGon 06-11-2021 CONSULT PROG Normal [...] SPECIMEN Performed By: #### 1 9123-9, 2777-1, 85680-8 ####[facility] LABORATORYCLIA [id number] [address] Phosphate SerPl-mCncon 06-11 Phosphate [Mass/Vol] 2.5 mg/dL Low 2.7-4.8 [facility] Comment on above: Order Comment: Speci men Type: BLOOD SPECIMEN Performed By: #### 1 9123-9, 2777-1, 31472-3 ####[facility] LABORATORYCLIA [id number] [address] OF [facility] Basic metabolic 2000 panelon 06-10-2021 Anion gap [Moles/Vol] 7 mmol/L Low 9-18 [facility] Comment on above: Order Comment: Speci men Type: BLOOD SPECIMEN Performed By: #### 2 777-1, 17892-5, , HFP ####[facility] LABORATORYCLIA [id number] [address] STATES OF [facility] Calcium [Mass/Vol] 8.5 mg/dL Normal 8.5-10.2 [facility] Comment on above: Order Comment: Speci men Type: BLOOD SPECIMEN Performed By: #### 2 777-1, 85044-8, , HFP ####[facility] LABORATORYCLIA [id number] [address] STATES OF [facility] Chloride [Moles/Vol] 118 mmol/L High 97-105 [facility] Comment on above: Order Comment: Speci men Type: BLOOD SPECIMEN Performed By: #### 2 777-1, 47294-7, , HFP ####[facility] LABORATORYCLIA [id number] [address] [place] CO2 [Moles/Vol] 26 mmol/L Normal 22-30 [facility] Comment on above: Order Comment: Speci men Type: BLOOD SPECIMEN Performed By: #### 2 777-1, 45410-6, , HFP ####[facility] LABORATORYCLIA [id number] [address] [place] Creatinine [Mass/Vol] 0.70 mg/dL Low 0.73-1.22 [facility] Comment on above: Order Comment: Speci men Type: BLOOD SPECIMEN Performed By: #### 2 777-1, 52431-7, , HFP ####[facility]ORATORYCLIA [id number] [address] [place] GFR/1.73 sq M.predicted [...] actual GFR. Performed By: #### 2 777-1, 02724-4, , [facility] ####[facility] LABORATORYCLIA [id number] [place] [address] [place] Glucose [Mass/Vol] 135 mg/dL High 74-99 [facility] Comment on above: Order Comment: [facility] Type: BLOOD SPECIMEN Result Comment: The [place] Diabetes [employer] (ADA) provides guidance for cutoff [...] Standards of Medical Care in Diabetes 2016, [place] [employer]. Diabetes Care. 2016.39(Suppl 1). Performed By: #### 2 777-1, 29707-3, , [facility] ####[facility] LABORATORYCLIA [id number] [place] [address] [place] Potassium [Moles/Vol] 3.9 mmol/L Normal 3.7-5.1 [facility] Comment on above: Order Comment: Speci [facility] Type: BLOOD SPECIMEN Performed By: #### 2 777-1, 39472-0, , [facility] ####[facility] LABORATORYCLIA [id number] [place], [place] [id number] [place] [address] Sodium [Moles/Vol] 151 mmol/L High 136-144 [facility] Comment on above: Order Comment: Speci men Type: BLOOD SPECIMEN Performed By: #### 2 777-1, 19646-7, , [facility] ####[facility] LABORATORYCLIA [id number] [place] [id number] [facility] Urea nitrogen [Mass/Vol] 27 mg/dL High 9-24 [facility] Comment on above: Order Comment: Speci men Type: BLOOD SPECIMEN Performed By: #### 2 777-1, 67156-1, , [facility] ####[facility] LABORATORYCLIA [id number] [address] CASE MANAGEMon 06-10-2021 CASE MANAGEM Normal [facility] CBC panel Auto (Bld)on 06-10 Erythrocyte distribution width (RBC) [Ratio] 16.2 % High 11.5-15.0 [facility] Comment on above: Order Comment: Speci men Type: BLOOD SPECIMEN Performed By: #### 5 8410-2 ####[facility] LABORATORYCLIA [id number] [address] Hematocrit (Bld) [Volume fraction] 34.8 % Low 39.0-51.0 [facility] Comment on above: Order Comment: Speci men Type: BLOOD SPECIMEN Performed By: #### 5 8410-2 ####[facility] LABORATORYCLIA [id number] [address] Hemoglobin (Bld) [Mass/Vol] 10.2 g/dL Low 13.0-17.0 [facility] Comment on above: Order Comment: Speci men Type: BLOOD SPECIMEN Performed By: #### 5 8410-2 ####[facility] LABORATORYCLIA [id number] [address] [place] MCH (RBC) [Entitic mass] 27.1 pg Normal 26.0-34.0 [facility] Comment on above: Order Comment: Speci men Type: BLOOD SPECIMEN Performed By: #### 5 8410-2 ####[facility] LABORATORYCLIA [id number] [address] MCHC (RBC) [Mass/Vol] 29.3 g/dL Low 30.5-36.0 [facility] Comment on above: Order Comment: Speci men Type: BLOOD SPECIMEN Performed By: #### 5 8410-2 ####[facility] LABORATORYCLIA [id number] [address] MCV (RBC) [Entitic vol] 92.6 fL Normal 80.0-100.0 [facility] Comment on above: Order Comment: Speci men Type: BLOOD SPECIMEN Performed By: #### 5 8410-2 ####[facility] LABORATORYCLIA [id number] [address] Nucleated RBC (Bld) [#/Vol] 10*3/uL Normal <0.01 [facility] Comment on above: Order Comment: Speci men Type: BLOOD SPECIMEN Performed By: #### 5 8410-2 ####[facility] LABORATORYCLIA [id number] [address] Platelet mean volume (Bld) [Entitic vol] 10.4 fL Normal 9.0-12.7 [facility] Comment on above: Order Comment: Speci men Type: BLOOD SPECIMEN Performed By: #### 5 8410-2 ####[facility] LABORATORYCLIA [id number] [address] Platelets (Bld) [#/Vol] 206 10*3/uL Normal 150-400 [facility] Comment on above: Order Comment: Speci men Type: BLOOD SPECIMEN Performed By: #### 5 8410-2 ####[facility] LABORATORYCLIA [id number] [address] RBC (Bld) [#/Vol] 3.76 10*6/uL Low 4.20-6.00 [facility] Comment on above: Order Comment: Speci men Type: BLOOD SPECIMEN Performed By: #### 5 8410-2 ####[facility] LABORATORYCLIA [id number] [address] WBC (Bld) [#/Vol] 11.36 10*3/uL High 3.70-11.00 [facility] Comment on above: Order Comment: Speci men Type: BLOOD SPECIMEN Performed By: #### 5 8410-2 ####[facility] LABORATORYCLIA [id number] [address] HEPATIC FUNCTION PNLon 06-10 Albumin [Mass/Vol] 3.1 g/dL Low 3.9-4.9 [facility] Comment on above: Order Comment: Speci men Type: BLOOD SPECIMEN Performed By: #### 2 777-1, 64541-4, , HFP ####[facility] LABORATORYCLIA [id number] [address] ALP [Catalytic activity/Vol] 73 U/L Normal 38-113 [facility] Comment on above: Order Comment: Speci men Type: BLOOD SPECIMEN Performed By: #### 2 777-1, 26165-8, , HFP ####[facility] LABORATORYCLIA [id number] [address] ALT With P-5'-P [Catalytic activity/Vol] 64 U/L High 10-54 [facility] Comment on above: Order Comment: Speci men Type: BLOOD SPECIMEN Performed By: #### 2 777-1, 63025-0, , HFP ####[facility] LABORATORYCLIA [id number] [address] AST With P-5'-P [Catalytic activity/Vol] 44 U/L High 14-40 [facility] Comment on above: Order Comment: Speci men Type: BLOOD SPECIMEN Performed By: #### 2 777-1, 13250-0, , HFP ####[facility] LABORATORYCLIA [id number] [address] Bilirubin [Mass/Vol] 0.5 mg/dL Normal 0.2-1.3 [facility] Comment on above: Order Comment: Speci men Type: BLOOD SPECIMEN Performed By: #### 2 777-1, 65224-2, , [facility] ####[facility] LABORATORYCLIA [id number] [address] Bilirubin.conjugated [Mass/Vol] mg/dL Normal <0.2 [facility] Comment on above: Order Comment: Speci men Type: BLOOD SPECIMEN Performed By: #### 2 777-1, 78253-5, , [facility] ####[facility] LABORATORYCLIA [id number] [address] Protein [Mass/Vol] 5.7 g/dL Low 6.3-8.0 [facility] Comment on above: Order Comment: Speci men Type: BLOOD SPECIMEN Performed By: #### 2 777-1, 97890-9, , [facility] ####[facility] LABORATORYCLIA [id number] [address] LEVETIRACETAMon 06-10-2021 levETIRAcetam [Mass/Vol] 57.7 ug/mL [...] developed and its performance characteristics determined by [facility] Isrrael Perez [facility] Pathology [facility] Laboratory Medicine [place] ([facility]). It has not been cleared or approved by the FDA. [facility] is regulated under CLIA as qualified to perform high complexity testing. This test is used for clinical purposes. It should not be regarded as investigational or for research. Performed By: #### L DARY ####[facility] REFERENCE LABCLIA [id number] [address] [place] [id number] [address] [place] Magnesium SerPl-mCncon 06-10 Magnesium [Mass/Vol] 2.7 mg/dL High 1.7-2.3 [facility] Comment on above: Order Comment: Speci men Type: BLOOD SPECIMEN Performed By: #### 2 777-1, 03900-2, , [facility] ####[facility] LABORATORYCLIA [id number] [place] [address] [place] Phosphate SerPl-ncon 06-10 Phosphate [Mass/Vol] 1.8 mg/dL Low 2.7-4.8 [facility] Comment on above: Order Comment: Speci men Type: BLOOD SPECIMEN Performed By: #### 2 777-1, 17212-5, , [facility] ####[facility] LABORATORYCLIA [id number] [place] [address] [place] ALLIED HEALTHon 06-09-2021 ALLIED HEALTH Normal [facility] ALLIED HEALTH Normal [facility] ALLIED HEALTH Normal [facility] ALLIED HEALTH Normal [facility] Basic metabolic 2000 panelon 06-09-2021 Anion gap [Moles/Vol] 8 mmol/L Low 9-18 [facility] Comment on above: Order Comment: Speci men Type: BLOOD SPECIMEN Performed By: #### 2 4321-2, 2776-, ####[facility]ORATORYCLIA [id number] [place] [address] [place] Calcium [Mass/Vol] 8.3 mg/dL Low 8.5-10.2 [facility] Comment on above: Order Comment: Speci men Type: BLOOD SPECIMEN Performed By: #### 2 4321-2, 2776-, ####[facility]ATORYCLIA [id number] [place] [address] [place] Chloride [Moles/Vol] 116 mmol/L High 97-105 [facility] Comment on above: Order Comment: Speci men Type: BLOOD SPECIMEN Performed By: #### 2 4321-2, 2776-05, ####[facility]ATORYCLIA [id number] [place] [address] [place] CO2 [Moles/Vol] 27 mmol/L Normal 22-30 [facility] Comment on above: Order Comment: Speci men Type: BLOOD SPECIMEN Performed By: #### 2 4321-2, 2776-05, ####[facility]ATORYCLIA [id number] [address] STATES OF [facility] Creatinine [Mass/Vol] 0.70 mg/dL Low 0.73-1.22 [facility] Comment on above: Order Comment: Speci men Type: BLOOD SPECIMEN Performed By: #### 2 4321-2, 2776-05, ####[facility]ATORYCLIA [id number] [place] [address] [place] GFR/1.73 sq M.predicted [...] GFR. Performed By: #### 2 4321-2, 2777, ####[facility]ATORYCLIA [id number] [place] [address] [place] Glucose [Mass/Vol] 123 mg/dL High 74-99 [facility] Comment on above: Order Comment: Speci men Type: BLOOD SPECIMEN Result Comment: The [place] Diabetes [employer] (ADA) provides guidance for cutoff [...] Standards of Medical Care in Diabetes 2016, [place] [employer]. Diabetes Care. 2016.39(Suppl 1). Performed By: #### 2 4321-2, 2776-05, ####[facility]ATORYCLIA [id number] [address] [place] Potassium [Moles/Vol] 3.5 mmol/L Low 3.7-5.1 [facility] Comment on above: Order Comment: Speci men Type: BLOOD SPECIMEN Performed By: #### 2 4321-2, 2776-05, ####[facility]ATORYCLIA [id number] [address] [place] Sodium [Moles/Vol] 151 mmol/L High 136-144 [facility] Comment on above: Order Comment: Speci men Type: BLOOD SPECIMEN Performed By: #### 2 4321-2, 2776-05, ####[facility]ATORYCLIA [id number] [place] [address] [place] Urea nitrogen [Mass/Vol] 39 mg/dL High 9-24 [facility] Comment on above: Order Comment: Speci men Type: BLOOD SPECIMEN Performed By: #### 2 4321-2, 2776-05, ####[facility]ATORYCLIA [id number] [address] CBC panel Auto (Bld)on 06-09 Erythrocyte distribution width (RBC) [Ratio] 16.2 % High 11.5-15.0 [facility] Comment on above: Order Comment: Speci men Type: BLOOD SPECIMEN Performed By: #### 5 8410-2 ####[facility]ATORYCLIA [id number] [address] Hematocrit (Bld) [Volume fraction] 33.7 % Low 39.0-51.0 [facility] Comment on above: Order Comment: Speci men Type: BLOOD SPECIMEN Performed By: #### 5 8410-2 ####[facility]ATORYCLIA [id number] [address] Hemoglobin (Bld) [Mass/Vol] 10.2 g/dL Low 13.0-17.0 [facility] Comment on above: Order Comment: Speci men Type: BLOOD SPECIMEN Performed By: #### 5 8410-2 ####[facility]ATORYCLIA [id number] [address] MCH (RBC) [Entitic mass] 27.4 pg Normal 26.0-34.0 [facility] Comment on above: Order Comment: Speci men Type: BLOOD SPECIMEN Performed By: #### 5 8410-2 ####[facility]ATORYCLIA [id number] [address] MCHC (RBC) [Mass/Vol] 30.3 g/dL Low 30.5-36.0 [facility] Comment on above: Order Comment: Speci men Type: BLOOD SPECIMEN Performed By: #### 5 8410-2 ####[facility]ORATORYCLIA [id number] [address] MCV (RBC) [Entitic vol] 90.6 fL Normal 80.0-100.0 [facility] Comment on above: Order Comment: Speci men Type: BLOOD SPECIMEN Performed By: #### 5 8410-2 ####[facility]ATORYCLIA [id number] [address] Nucleated RBC (Bld) [#/Vol] 10*3/uL Normal <0.01 [facility] Comment on above: Order Comment: Speci men Type: BLOOD SPECIMEN Performed By: #### 5 8410-2 ####[facility]ATORYCLIA [id number] [address] Platelet mean volume (Bld) [Entitic vol] 10.3 fL Normal 9.0-12.7 [facility] Comment on above: Order Comment: Speci men Type: BLOOD SPECIMEN Performed By: #### 5 8410-2 ####[facility]ATORYCLIA [id number] [address] Platelets (Bld) [#/Vol] 219 10*3/uL Normal 150-400 [facility] Comment on above: Order Comment: Speci men Type: BLOOD SPECIMEN Performed By: #### 5 8410-2 ####[facility]ATORYCLIA [id number] [address] RBC (Bld) [#/Vol] 3.72 10*6/uL Low 4.20-6.00 [facility] Comment on above: Order Comment: Speci men Type: BLOOD SPECIMEN Performed By: #### 5 8410-2 ####[facility]ATORYCLIA [id number] [address] OF [facility] WBC (Bld) [#/Vol] 13.02 10*3/uL High 3.70-11.00 [facility] Comment on above: Order Comment: Speci men Type: BLOOD SPECIMEN Performed By: #### 5 8410-2 ####[facility]ATORYCLIA [id number] [address] CONSULT PROGon 06-09-2021 CONSULT PROG Normal [facility] CONSULT PROG Normal [facility] CT BRAIN WO IVCONon 06-09-[address] BRAIN WO IVCON Normal [facility] Magnesium SerPl-mCncon 06-09 Magnesium [Mass/Vol] 2.8 mg/dL High 1.7-2.3 [facility] Comment on above: Order Comment: Speci men Type: BLOOD SPECIMEN Performed By: #### 2 4321-2, 2777-1, 88517-5 ####[facility]ORATORYCLIA [id number] [address] NURSING PROGon 06-09-2021 NURSING PROG Normal [facility] NUTRITIONon 06-09-2021 NUTRITION Normal [facility] PT EDon 06-09-2021 PT ED Normal [facility] Phosphate SerPl-mCncon 06-09 Phosphate [Mass/Vol] 2.2 mg/dL Low 2.7-4.8 [facility] Comment on above: Order Comment: Speci men Type: BLOOD SPECIMEN Performed By: #### 2 4321-2, 2777-1, ####[facility]ORATORYCLIA [id number] [address] Vancomycin random [Mass/Vol] on 06-09-2021 Vancomycin [Mass/Vol] 18.9 ug/mL Normal 10.0-20.0 [facility] Comment on above: Order Comment: Speci men Type: BLOOD SPECIMEN Result Comment: Refe rence ranges and high/low indicator flags are provided as general guidelines only. The treating physician must determine appropriate target levels/dosing based on the specific clinical situation. Performed By: #### 4 091-5 ####[facility]ORATORYCLIA [id number] [address] XR ABD 2V SUPINE W UPR/DECUB [...] 1 Rare Staphylococcus saccharolyticus Identification performed by [facility] CC-Main See scanned document for susceptibility report Normal [facility] Comment on above: Performed By: #### 6 462-6 635-3 ####[facility]ORATORYCLIA [id number] [place] [address] [place] Bacteria Wnd Culton 06-08-19 22 Bacteria identified Cx Nom (Wound) CULTURE, INTRAOPERATIVE HARDWARE: No growth 5 days GRAM STAIN: Not performed on specimen type Normal [facility] Comment on above: Performed By: #### 6 462-6 635-3 ####[facility]ATORYCLIA [id number] [place] [address] [place] Basic metabolic 2000 panelon 06-08-2021 Anion gap [Moles/Vol] 9 mmol/L Normal 9-18 [facility] Comment on above: Order Comment: Speci men Type: BLOOD SPECIMEN Performed By: #### 2 4321-2, 2776-05, ####[facility]ATORYCLIA [id number] [place] [address] [place] Calcium [Mass/Vol] 8.7 mg/dL Normal 8.5-10.2 [facility] Comment on above: Order Comment: Speci men Type: BLOOD SPECIMEN Performed By: #### 2 4321-2, 2776-05, ####[facility]ATORYCLIA [id number] [place] [address] [place] Chloride [Moles/Vol] 113 mmol/L High 97-105 [facility] Comment on above: Order Comment: Speci men Type: BLOOD SPECIMEN Performed By: #### 2 4321-2, 2776-05, ####[facility]ATORYCLIA [id number] [place], [place] [address] [place] [address] [place] CO2 [Moles/Vol] 26 mmol/L Normal 22-30 [facility] Comment on above: Order Comment: Speci men Type: BLOOD SPECIMEN Performed By: #### 2 4321-2, 2776-05, ####[facility]ATORYCLIA [id number] [address] [place] Creatinine [Mass/Vol] 0.68 mg/dL Low 0.73-1.22 [facility] Comment on above: Order Comment: Speci men Type: BLOOD SPECIMEN Performed By: #### 2 4321-2, 2776-05, ####[facility]ATORYCLIA [id number] [address] [place] GFR/1.73 sq M.predicted [...] GFR. Performed By: #### 2 4321-2, 2776-05, ####[facility]ATORYCLIA [id number] [place], [place] [address] [place] [address] [place] Glucose [Mass/Vol] 146 mg/dL High 74-99 [facility] Comment on above: Order Comment: Speci men Type: BLOOD SPECIMEN Result Comment: The [place] Diabetes [employer] (ADA) provides guidance for cutoff [...] Standards of Medical Care in Diabetes 2016, [place] [employer]. Diabetes Care. 2016.39(Suppl 1). Performed By: #### 2 4321-2, 2776-05, ####[facility]ATORYCLIA [id number] [address] STATES OF [facility] Potassium [Moles/Vol] 3.6 mmol/L Low 3.7-5.1 [facility] Comment on above: Order Comment: Speci men Type: BLOOD SPECIMEN Performed By: #### 2 4321-2, 2776-05, ####[facility]ATORYCLIA [id number] [address] STATES OF [facility] Sodium [Moles/Vol] 148 mmol/L High 136-144 [facility] Comment on above: Order Comment: Speci men Type: BLOOD SPECIMEN Performed By: #### 2 4321-2, 2776-05, ####[facility]ATORYCLIA [id number] [address] [place] Urea nitrogen [Mass/Vol] 36 mg/dL High 9-24 [facility] Comment on above: Order Comment: Speci men Type: BLOOD SPECIMEN Performed By: #### 2 4321-2, 2776-05, ####[facility]ATORYCLIA [id number] [address] [place] CASE MANAGEMon 02-02-2022 CASE MANAGEM Normal [facility] CBC panel Auto (Bld)on 06-08 Erythrocyte distribution width (RBC) [Ratio] 16.0 % High 11.5-15.0 [facility] Comment on above: Order Comment: Speci men Type: BLOOD SPECIMEN Performed By: #### 5 8410-2 ####[facility]ATORYCLIA [id number] [address] Hematocrit (Bld) [Volume fraction] 38.4 % Low 39.0-51.0 [facility] Comment on above: Order Comment: Speci men Type: BLOOD SPECIMEN Performed By: #### 5 8410-2 ####[facility]ATORYCLIA [id number] [address] Hemoglobin (Bld) [Mass/Vol] 12.1 g/dL Low 13.0-17.0 [facility] Comment on above: Order Comment: Speci men Type: BLOOD SPECIMEN Performed By: #### 5 8410-2 ####[facility]ATORYCLIA [id number] [address] MCH (RBC) [Entitic mass] 28.3 pg Normal 26.0-34.0 [facility] Comment on above: Order Comment: Speci men Type: BLOOD SPECIMEN Performed By: #### 5 8410-2 ####[facility]ATORYCLIA [id number] [address] MCHC (RBC) [Mass/Vol] 31.5 g/dL Normal 30.5-36.0 [facility] Comment on above: Order Comment: Speci men Type: BLOOD SPECIMEN Performed By: #### 5 8410-2 ####[facility]ATORYCLIA [id number] [address] MCV (RBC) [Entitic vol] 89.9 fL Normal 80.0-100.0 [facility] Comment on above: Order Comment: Speci men Type: BLOOD SPECIMEN Performed By: #### 5 8410-2 ####[facility]ATORYCLIA [id number] [address] Nucleated RBC (Bld) [#/Vol] 10*3/uL Normal <0.01 [facility] Comment on above: Order Comment: Speci men Type: BLOOD SPECIMEN Performed By: #### 5 8410-2 ####[facility]ATORYCLIA [id number] [address] Platelet mean volume (Bld) [Entitic vol] 10.3 fL Normal 9.0-12.7 [facility] Comment on above: Order Comment: Speci men Type: BLOOD SPECIMEN Performed By: #### 5 8410-2 ####[facility]ATORYCLIA [id number] [address] Platelets (Bld) [#/Vol] 236 10*3/uL Normal 150-400 [facility] Comment on above: Order Comment: Speci men Type: BLOOD SPECIMEN Performed By: #### 5 8410-2 ####[facility]ATORYCLIA [id number] [address] RBC (Bld) [#/Vol] 4.27 10*6/uL Normal 4.20-6.00 [facility] Comment on above: Order Comment: Speci men Type: BLOOD SPECIMEN Performed By: #### 5 8410-2 ####[facility]ATORYCLIA [id number] [address] WBC (Bld) [#/Vol] 11.06 10*3/uL High 3.70-11.00 [facility] Comment on above: Order Comment: Speci men Type: BLOOD SPECIMEN Performed By: #### 5 8410-2 ####[facility]ATORYCLIA [id number] [address] CONSULT PROGon 06-08-2021 CONSULT PROG Normal [facility] CT BRAIN WO IVCONon 06-08-19 CT BRAIN WO IVCON Normal [facility] Magnesium SerPl-mCncon 02-02 -2022 Magnesium [Mass/Vol] 2.8 mg/dL High 1.7-2.3 [facility] Comment on above: Order Comment: Speci men Type: BLOOD SPECIMEN Performed By: #### 2 4321-2, 2777-1, 90026-8 ####[facility]ATORYCLIA [id number] [address] Microorganism Spec Culton Microorganism identified Cx Nom (Unsp spec) CULTURE, FUNGAL: No Fungus isolated after 28 days FUNGAL SMEAR: No fungus seen Normal [facility] Comment on above: Performed By: #### 1 1475-1 ####[facility]ATORYCLIA [id number] [address] NURSING PROGon 06-08-2021 NURSING PROG Normal [...] with VKA drugs, such as warfarin, the [place] [employer] 2012 Guideline recommends [...] 70: 252-289 Performed By: #### 3 4528-0, 59019-5 ####[facility] LABORATORYCLIA [id number] [place], [place] [address] [place] [address] OF [facility] PT Coag (PPP) [Time] 11.9 s Normal 9.7-13.0 [facility] Comment on above: Order Comment: Speci men Type: BLOOD SPECIMEN Performed By: #### 3 4528-0, 46240-1 ####[facility] LABORATORYCLIA [id number] [address] OF [facility] Phosphate SerPl-mCncon 06-08 Phosphate [Mass/Vol] 2.3 mg/dL Low 2.7-4.8 [facility] Comment on above: Order Comment: Speci men Type: BLOOD SPECIMEN Performed By: #### 2 4321-2, 2777-1, 04295-3 ####[facility]ATORYCLIA [id number] [address] aPTT PPPon 06-08-2021 aPTT Coag (PPP) [Time] 24.2 s Normal 23.0-32.4 [facility] Comment on above: Order Comment: Speci men Type: BLOOD SPECIMEN Performed By: #### 3 4528-0, 41692-2 ####[facility]ORATORYCLIA [id number] [address] OF [facility] ALLIED HEALTHon 06-07-2021 ALLIED HEALTH Normal [place] [...] on above: Performed By: #### 6 06-4 ####[facility]ORATORYCLIA [id number] [address] OF [facility] Basic metabolic 2000 panelon 06-07-2021 Anion gap [Moles/Vol] 9 mmol/L Normal 9-18 [facility] Comment on above: Order Comment: Speci men Type: BLOOD SPECIMEN Performed By: #### 1 9123-9, 27711-04, 19890-8 ####[facility]ATORYCLIA [id number] [address] Calcium [Mass/Vol] 8.8 mg/dL Normal 8.5-10.2 [facility] Comment on above: Order Comment: Speci men Type: BLOOD SPECIMEN Performed By: #### 1 9123-9, 2776-05, 94047-3 ####[facility]ATORYCLIA [id number] [address] OF [facility] Chloride [Moles/Vol] 111 mmol/L High 97-105 [facility] Comment on above: Order Comment: Speci men Type: BLOOD SPECIMEN Performed By: #### 1 9123-9, 2776-05, 88139-4 ####[facility]ATORYCLIA [id number] [address] STATES OF [facility] CO2 [Moles/Vol] 27 mmol/L Normal 22-30 [facility] Comment on above: Order Comment: Speci men Type: BLOOD SPECIMEN Performed By: #### 1 9123-9, 2776-05, 57674-7 ####[facility]ATORYCLIA [id number] [address] OF [facility] Creatinine [Mass/Vol] 0.66 mg/dL Low 0.73-1.22 [facility] Comment on above: Order Comment: Speci men Type: BLOOD SPECIMEN Performed By: #### 1 9123-9, 27711-04, ####[facility]ORATORYCLIA [id number] [place] [address] [place] GFR/1.73 sq M.predicted [...] GFR. Performed By: #### 1 9123-9, 2777-, 03346-1 ####[facility]ORATORYCLIA [id number] [place] [address] [place] Glucose [Mass/Vol] 123 mg/dL High 74-99 [facility] Comment on above: Order Comment: Speci men Type: BLOOD SPECIMEN Result Comment: The [place] Diabetes Association (ADA) provides guidance for cutoff [...] Standards of Medical Care in Diabetes 2016, [place] [employer]. Diabetes Care. 2016.39(Suppl 1). Performed By: #### 1 9123-9, 2777, 36037-5 ####[facility]ORATORYCLIA [id number] [address] STATES OF [facility] Potassium [Moles/Vol] 3.6 mmol/L Low 3.7-5.1 [facility] Comment on above: Order Comment: Speci men Type: BLOOD SPECIMEN Performed By: #### 1 9123-9, 2777, 43098-2 ####[facility]ORATORYCLIA [id number] [address] [place] Sodium [Moles/Vol] 147 mmol/L High 136-144 [facility] Comment on above: Order Comment: Speci men Type: BLOOD SPECIMEN Performed By: #### 1 9123-9, 2777-1, 22311-0 ####[facility]ORATORYCLIA [id number] [address] Urea nitrogen [Mass/Vol] 30 mg/dL High 9-24 [facility] Comment on above: Order Comment: Speci men Type: BLOOD SPECIMEN Performed By: #### 1 9123-9, 2777-1, 13765-7 ####[facility]ORATORYCLIA [id number] [address] CBC W Auto Differential pane l (Bld)on 06-07-2021 Basophils (Bld) [#/Vol] 10*3/uL Normal <0.11 [facility] Comment on above: Order Comment: Speci men Type: BLOOD SPECIMEN Performed By: #### 5 7021-8 ####[facility]ORATORYCLIA [id number] [address] Basophils/100 WBC (Bld) 0.2 % Normal [facility] Comment on above: Order Comment: Speci men Type: BLOOD SPECIMEN Performed By: #### 5 7021-8 ####[facility]ORATORYCLIA [id number] [address] Differential cell count method Nom (Bld) Auto Normal [facility] Comment on above: Order Comment: Speci men Type: BLOOD SPECIMEN Performed By: #### 5 7021-8 ####[facility]ORATORYCLIA [id number] [address] Eosinophils (Bld) [#/Vol] 0.06 10*3/uL Normal <0.46 [facility] Comment on above: Order Comment: Speci men Type: BLOOD SPECIMEN Performed By: #### 5 7021-8 ####[facility]ORATORYCLIA [id number] [address] Eosinophils/100 WBC (Bld) 0.6 % Normal [facility] Comment on above: Order Comment: Speci men Type: BLOOD SPECIMEN Performed By: #### 5 7021-8 ####[facility] LABORATORYCLIA [id number] [address] Erythrocyte distribution width (RBC) [Ratio] 15.8 % High 11.5-15.0 [facility] Comment on above: Order Comment: Speci men Type: BLOOD SPECIMEN Performed By: #### 5 7021-8 ####[facility] LABORATORYCLIA [id number] [address] Hematocrit (Bld) [Volume fraction] 40.4 % Normal 39.0-51.0 [facility] Comment on above: Order Comment: Speci men Type: BLOOD SPECIMEN Performed By: #### 5 7021-8 ####[facility] LABORATORYCLIA [id number] [address] Hemoglobin (Bld) [Mass/Vol] 12.4 g/dL Low 13.0-17.0 [facility] Comment on above: Order Comment: Speci men Type: BLOOD SPECIMEN Performed By: #### 5 7021-8 ####[facility]ORATORYCLIA [id number] [address] IMMATURE GRAN % 0.7 % Normal [facility] Comment on above: Order Comment: Speci men Type: BLOOD SPECIMEN Performed By: #### 5 7021-8 ####[facility]ATORYCLIA [id number] [address] IMMATURE GRAN ABS 0.07 k/uL Normal <0.10 [facility] Comment on above: Order Comment: Speci men Type: BLOOD SPECIMEN Performed By: #### 5 7021-8 ####[facility]ORATORYCLIA [id number] [address] Lymphocytes (Bld) [#/Vol] 1.43 10*3/uL Normal 1.00-4.00 [facility] Comment on above: Order Comment: Speci men Type: BLOOD SPECIMEN Performed By: #### 5 7021-8 ####[facility]ORATORYCLIA [id number] [address] Lymphocytes/100 WBC (Bld) 14.1 % Normal [facility] Comment on above: Order Comment: Speci men Type: BLOOD SPECIMEN Performed By: #### 5 7021-8 ####[facility]ORATORYCLIA [id number] [address] MCH (RBC) [Entitic mass] 27.6 pg Normal 26.0-34.0 [facility] Comment on above: Order Comment: Speci men Type: BLOOD SPECIMEN Performed By: #### 5 7021-8 ####[facility]ORATORYCLIA [id number] [address] MCHC (RBC) [Mass/Vol] 30.7 g/dL Normal 30.5-36.0 [facility] Comment on above: Order Comment: Speci men Type: BLOOD SPECIMEN Performed By: #### 5 7021-8 ####[facility]ORATORYCLIA [id number] [address] MCV (RBC) [Entitic vol] 89.8 fL Normal 80.0-100.0 [facility] Comment on above: Order Comment: Speci men Type: BLOOD SPECIMEN Performed By: #### 5 7021-8 ####[facility]ORATORYCLIA [id number] [address] Monocytes (Bld) [#/Vol] 0.82 10*3/uL Normal <0.87 [facility] Comment on above: Order Comment: Speci men Type: BLOOD SPECIMEN Performed By: #### 5 7021-8 ####[facility]ORATORYCLIA [id number] [address] Monocytes/100 WBC (Bld) 8.1 % Normal [facility] Comment on above: Order Comment: Speci men Type: BLOOD SPECIMEN Performed By: #### 5 7021-8 ####[facility]ORATORYCLIA [id number] [place] [address] Neutrophils (Bld) [#/Vol] 7.74 10*3/uL High 1.45-7.50 [facility] Comment on above: Order Comment: Speci men Type: BLOOD SPECIMEN Performed By: #### 5 7021-8 ####[facility] LABORATORYCLIA [id number] [address] Neutrophils/100 WBC (Bld) 76.3 % Normal [facility] Comment on above: Order Comment: Speci men Type: BLOOD SPECIMEN Performed By: #### 5 7021-8 ####[facility]ORATORYCLIA [id number] [address] Nucleated RBC (Bld) [#/Vol] 10*3/uL Normal <0.01 [facility] Comment on above: Order Comment: Speci men Type: BLOOD SPECIMEN Performed By: #### 5 7021-8 ####[facility]ATORYCLIA [id number] [address] Nucleated RBC/100 WBC (Bld) [Ratio] 0.0 /100 WBC Normal 0.0 [facility] Comment on above: Order Comment: Speci men Type: BLOOD SPECIMEN Performed By: #### 5 7021-8 ####[facility]ATORYCLIA [id number] [address] Platelet mean volume (Bld) [Entitic vol] 10.4 fL Normal 9.0-12.7 [facility] Comment on above: Order Comment: Speci men Type: BLOOD SPECIMEN Performed By: #### 5 7021-8 ####[facility]ORATORYCLIA [id number] [address] Platelets (Bld) [#/Vol] 236 10*3/uL Normal 150-400 [place] [facility] Comment on above: Order Comment: Speci men Type: BLOOD SPECIMEN Performed By: #### 5 7021-8 ####[facility] LABORATORYCLIA [id number] [place] [address] [place] RBC (Bld) [#/Vol] 4.50 10*6/uL Normal 4.20-6.00 [facility] Comment on above: Order Comment: Speci men Type: BLOOD SPECIMEN Performed By: #### 5 7021-8 ####[facility] LABORATORYCLIA [id number] [address] WBC (Bld) [#/Vol] 10.14 10*3/uL Normal 3.70-11.00 [facility] Comment on above: Order Comment: Speci men Type: BLOOD SPECIMEN Performed By: #### 5 7021-8 ####[facility] LABORATORYCLIA [id number] [address] CBC panel Auto (Bld)on 06-07 Erythrocyte distribution width (RBC) [Ratio] 15.8 % High 11.5-15.0 [facility] Comment on above: Order Comment: Speci men Type: BLOOD SPECIMEN Performed By: #### 5 8410-2 ####[facility] LABORATORYCLIA [id number] [address] Hematocrit (Bld) [Volume fraction] 40.0 % Normal 39.0-51.0 [facility] Comment on above: Order Comment: Speci men Type: BLOOD SPECIMEN Performed By: #### 5 8410-2 ####[facility] LABORATORYCLIA [id number] [address] Hemoglobin (Bld) [Mass/Vol] 12.3 g/dL Low 13.0-17.0 [facility] Comment on above: Order Comment: Speci men Type: BLOOD SPECIMEN Performed By: #### 5 8410-2 ####[facility] LABORATORYCLIA [id number] [address] MCH (RBC) [Entitic mass] 27.3 pg Normal 26.0-34.0 [facility] Comment on above: Order Comment: Speci men Type: BLOOD SPECIMEN Performed By: #### 5 8410-2 ####[facility]ATORYCLIA [id number] [address] MCHC (RBC) [Mass/Vol] 30.8 g/dL Normal 30.5-36.0 [facility] Comment on above: Order Comment: Speci men Type: BLOOD SPECIMEN Performed By: #### 5 8410-2 ####[facility] LABORATORYCLIA [id number] [address] MCV (RBC) [Entitic vol] 88.7 fL Normal 80.0-100.0 [facility] Comment on above: Order Comment: Speci men Type: BLOOD SPECIMEN Performed By: #### 5 8410-2 ####[facility] LABORATORYCLIA [id number] [address] Nucleated RBC (Bld) [#/Vol] 10*3/uL Normal <0.01 [facility] Comment on above: Order Comment: Speci men Type: BLOOD SPECIMEN Performed By: #### 5 8410-2 ####[facility] LABORATORYCLIA [id number] [address] Platelet mean volume (Bld) [Entitic vol] 10.0 fL Normal 9.0-12.7 [facility] Comment on above: Order Comment: Speci men Type: BLOOD SPECIMEN Performed By: #### 5 8410-2 ####[facility] LABORATORYCLIA [id number] [address] Platelets (Bld) [#/Vol] 234 10*3/uL Normal 150-400 [facility] Comment on above: Order Comment: Speci men Type: BLOOD SPECIMEN Performed By: #### 5 8410-2 ####[facility] LABORATORYCLIA [id number] [address] RBC (Bld) [#/Vol] 4.51 10*6/uL Normal 4.20-6.00 [facility] Comment on above: Order Comment: Speci men Type: BLOOD SPECIMEN Performed By: #### 5 8410-2 ####[facility] LABORATORYCLIA [id number] [address] [place] WBC (Bld) [#/Vol] 11.47 10*3/uL High 3.70-11.00 [facility] Comment on above: Order Comment: Speci men Type: BLOOD SPECIMEN Performed By: #### 5 8410-2 ####[facility] LABORATORYCLIA [id number] [address] CONSULT PROGon 06-07-2021 CONSULT PROG Normal [facility] CONSULT PROG Normal [facility] CSF MANUAL DIFFon 06-07-2021 DIF TTL, CSF 92 cells counted Normal [facility] Comment on above: Order Comment: Speci men Type: CEREBROSPINAL FLUID Performed By: #### 3 4563-7, [id number], [id number] ####[facility] LABORATORYCLIA [id number] [address] EOSIN%, CSF 1 % Normal [facility] Comment on above: Order Comment: Speci men Type: CEREBROSPINAL FLUID Performed By: #### 3 4563-7, [id number], [id number] ####[facility]ORATORYCLIA [id number] [address] [place] LYMPH%, CSF 21 % Low 50-90 [facility] Comment on above: Order Comment: Speci men Type: CEREBROSPINAL FLUID Performed By: #### 3 4563-7, [id number], [id number] ####[facility]ORATORYCLIA [id number] [address] [place] MACRO%, CSF 27 % High <1 [facility] Comment on above: Order Comment: Speci men Type: CEREBROSPINAL FLUID Result Comment: Tati ected result: Previously reported as 22 % on 06/07/2021 at 1:49 PM EST. Performed By: #### 3 4563-7, [id number], [id number] ####[facility]ATORYCLIA [id number] [address] [place] MONO%, CSF 36 % Normal 10-50 [facility] Comment on above: Order Comment: Speci men Type: CEREBROSPINAL FLUID Performed By: #### 3 4563-7, [id number], [id number] ####[facility] LABORATORYCLIA [id number] [address] [place] NEUT%, CSF 11 % High 0-3 [facility] Comment on above: Order Comment: Speci men Type: CEREBROSPINAL FLUID Performed By: #### 3 4563-7, [id number], [id number] ####[facility] LABORATORYCLIA [id number] [address] OTHER CL%, CSF 4 % Normal [facility] Comment on above: Order Comment: Speci men Type: CEREBROSPINAL FLUID Result Comment: Path review to follow.Corrected result: Previously reported as 10 % on 06/07/2021 at 1:49 PM EST. Performed By: #### 3 4563-7, [id number], [id number] ####[facility] LABORATORYCLIA [id number] [address] CSF PATHOLOGIST INTERP (LAB REFLEX ORDER-NO BILL)on 06-07-2021 CSF STAFF REVIEW Negative for maligna nt cells. Rare immature myeloid or ventricular lining cells. Normal [facility] Comment on above: Order Comment: Speci men Type: CEREBROSPINAL FLUID Performed By: #### 3 4563-7, [id number], [id number] ####[facility] LABORATORYCLIA [id number] [address] Pathologist name Reviewed by Eloise rebolledo MD [facility] Comment on above: Order Comment: Speci men Type: CEREBROSPINAL FLUID Performed By: #### 3 4563-7, [id number], [id number] ####[facility] LABORATORYCLIA [id number] [address] BRAIN WO IVCONon 06-07-19 CT BRAIN WO IVCON Normal [facility] CT BRAIN WO IVCON Normal [facility] Cell count panel (CSF)on Clarity (CSF) Clear Normal Clear [facility] Comment on above: Order Comment: Speci men Type: CEREBROSPINAL FLUID Performed By: #### 3 4563-7, [id number], [id number] ####[facility]ATORYCLIA [id number] [address] Clarity (Unsp spec) Not Indicated Normal Clear [facility] Comment on above: Order Comment: Speci men Type: CEREBROSPINAL FLUID Performed By: #### 3 4563-7, [id number], [id number] ####[facility]ORYCLIA [id number] [address] Color (CSF) Colorless Normal Colorless [facility] Comment on above: Order Comment: Speci men Type: CEREBROSPINAL FLUID Performed By: #### 3 4563-7, [id number], [id number] ####[facility]ORYCLIA [id number] [address] Color (Spun CSF) Not Indicated Normal Colorless [facility] Comment on above: Order Comment: Speci men Type: CEREBROSPINAL FLUID Performed By: #### 3 4563-7, [id number], [id number] ####[facility]ATORYCLIA [id number] [address] CSF TUBE NUMBER [employer] Normal [facility] Comment on above: Order Comment: Speci men Type: CEREBROSPINAL FLUID Performed By: #### 3 4563-7, [id number], [id number] ####[facility]ATORYCLIA [id number] [address] RBC Manual cnt (CSF) [#/Vol] 42 cells/uL High 0-5 [facility] Comment on above: Order Comment: Speci men Type: CEREBROSPINAL FLUID Performed By: #### 3 4563-7, [id number], [id number] ####[facility]ATORYCLIA [id number] [address] WBC Manual cnt (CSF) [#/Vol] 1 cells/uL Normal 0-5 [facility] Comment on above: Order Comment: Speci men Type: CEREBROSPINAL FLUID Performed By: #### 3 4563-7, [id number], [id number] ####[facility] LABORATORYCLIA [id number] [address] [place] Glucose CSF-mCncon 2 [...] Glucose HK (GLUC3) [package insert V 12.0 Finnish]. [employer], [place], [place]. September 2015. 2. Michelle Moore, Loki HGarfield (2015). Chapter 7: Glucose and Lactate. Marianela Rothman.(eds.), Cerebrospinal Fluid in Clinical Neurology. Hickman: [employer]. Performed By: #### 2 880-3, 2342-4 ####[facility] LABORATORYCLIA [id number] [address] STATES OF [facility] Lactate (Bld) [Moles/Vol]on 06-07-2021 Lactate [Moles/Vol] 0.9 mmol/L Normal 0.5-2.2 [facility] Comment on above: Order Comment: Speci men Type: BLOOD SPECIMEN Performed By: #### 3 2693-4 ####[facility]ORATORYCLIA [id number] [address] [place] Lipase SerPl-cCncon 06-07-19 22 Lipase [Catalytic activity/Vol] 35 U/L Normal 16-61 [facility] Comment on above: Order Comment: Speci men Type: BLOOD SPECIMEN Performed By: #### 3 040-3, PROCAL ####[facility]ORATORYCLIA [id number] [address] [place] Magnesium SerPl-mCncon 06-07 Magnesium [Mass/Vol] 2.7 mg/dL High 1.7-2.3 [facility] Comment on above: Order Comment: Speci men Type: BLOOD SPECIMEN Performed By: #### 1 9123-9, 2777-1, 14803-8 ####[facility]ORATORYCLIA [id number] [address] PROCALCITONIN (LAB)on 2021 Procalcitonin [Mass/Vol] 0.13 ng/mL High <0.09 [facility] Comment on above: Order Comment: Speci men Type: BLOOD SPECIMEN Result Comment: For a guided interpretation of test results, please visit the [facility] in Procalcitonin Calculator, [email or web address]. Performed By: #### 3 040-3, PROCAL ####[facility] [id number] [address] OF [facility] Phosphate SerPl-ncon 06-07 Phosphate [Mass/Vol] 1.9 mg/dL Low 2.7-4.8 [facility] Comment on above: Order Comment: Speci men Type: BLOOD SPECIMEN Performed By: #### 1 9123-9, 2777-1, 95676-4 ####[facility] [id number] [address] Prot CSF-mCncon 06-07-2021 Protein (CSF) [Mass/Vol] 33 mg/dL Normal 15-45 [facility] Comment on above: Order Comment: Speci men Type: CEREBROSPINAL FLUID Performed By: #### 2 880-3, 2342-4 ####[facility]ORATORYCLIA [id number] [address] SARS-CoV-2 RNA Resp Ql MEGAN+p robeon 06-07-2021 SARS-CoV-2 (COVID-19) RNA MEGAN+probe Ql (Resp) COVID 19 RESULT: SARS-CoV-2 (Agent of COVID-19) Not Detected by PCR. This test has been authorized by FDA under an Emergency Use Authorization (EUA). Normal [facility] Comment on above: Performed By: #### 9 4500-6 ####[facility] LABORATORYCLIA [id number] [place] [address] [facility] TYPE AND SCREENon 06-07-2021 ABO O Normal [facility] Comment on above: Order Comment: Speci men Type: BLOOD SPECIMEN Performed By: #### T SCR ####[facility] BLO[facility] BANKCLIA [id number] [place] [id number] [facility] HISTORICAL AB SCR STATUS Negative Normal [facility] Comment on above: Order Comment: Speci men Type: BLOOD SPECIMEN Performed By: #### T SCR ####[facility] BLOOD BANKCLIA [id number] [address] Rh Nom (Bld) Positive Normal [facility] Comment on above: Order Comment: Speci men Type: BLOOD SPECIMEN Performed By: #### T SCR ####[facility] BLOOD BANKCLIA [id number] [address] TYPE AND SCREEN EXPIRATION 06/10/2021 23:59 Normal [facility] Comment on above: Order Comment: Speci men Type: BLOOD SPECIMEN Performed By: #### T SCR ####[facility] BLOOD BANKCLIA [id number] [address] Vancomycin random [Mass/Vol] on 06-07-2021 Vancomycin [Mass/Vol] 16.5 ug/mL Normal 10.0-20.0 [facility] Comment on above: Order Comment: Speci men Type: BLOOD SPECIMEN Result Comment: Refe rence ranges and high/low indicator flags are provided as general guidelines only. The treating physician must determine appropriate target levels/dosing based on the specific clinical situation. Performed By: #### 4 091-5 ####[facility] LABORATORYCLIA [id number] [address] XR CHEST 1V FRONTAL PORTon 0 06-07-2021 XR CHEST 1V FRONTAL PORT Normal [facility] Basic metabolic 2000 panelon 06-06-2021 Anion gap [Moles/Vol] 11 mmol/L Normal 9-[address] [facility] Comment on above: Order Comment: Speci men Type: BLOOD SPECIMEN Performed By: #### 2 4321-2, , 2776-05 ####[facility] LABORATORYCLIA [id number] [address] STATES [facility] Calcium [Mass/Vol] 8.6 mg/dL Normal 8.5-10.2 [facility] Comment on above: Order Comment: Speci men Type: BLOOD SPECIMEN Performed By: #### 2 4321-2, , 2776-05 ####[facility] LABORATORYCLIA [id number] [address] [place] Chloride [Moles/Vol] 108 mmol/L High 97-105 [facility] Comment on above: Order Comment: Speci men Type: BLOOD SPECIMEN Performed By: #### 2 4321-2, , 2776-05 ####[facility] LABORATORYCLIA [id number] [address] [place] CO2 [Moles/Vol] 25 mmol/L Normal 22-30 [facility] Comment on above: Order Comment: Speci men Type: BLOOD SPECIMEN Performed By: #### 2 4321-2, , 2776-05 ####[facility] LABORATORYCLIA [id number] [address] STATES OF [facility] Creatinine [Mass/Vol] 0.76 mg/dL Normal 0.73-1.22 [facility] Comment on above: Order Comment: Speci men Type: BLOOD SPECIMEN Performed By: #### 2 4321-2, , 2776-05 ####[facility] LABORATORYCLIA [id number] [place] [address] [place] GFR/1.73 sq M.predicted [...] has been calibrated to be traceable to IDTN. An eGFR <60 mL/min/1.73m2 for >3 months is consistent with chronic kidney disease. Refer to KDOQI guidelines for clinical interpretation. In patients with unstable renal function, e.g. those with acute kidney injury, the eGFR may not accurately reflect actual GFR. Performed By: #### 2 4321-2, , 2776-05 ####[facility] LABORATORYCLIA [id number] [place] [address] [place] Glucose [Mass/Vol] 116 mg/dL High 74-99 [facility] Comment on above: Order Comment: Speci men Type: BLOOD SPECIMEN Result Comment: The [place] Diabetes Association (ADA) provides guidance for cutoff [...] Standards of Medical Care in Diabetes 2016, [place] [employer]. Diabetes Care. 2016.39(Suppl 1). Performed By: #### 2 4321-2, , 2776-05 ####[facility] LABORATORYCLIA [id number] [place] [address] [place] Potassium [Moles/Vol] 3.5 mmol/L Low 3.7-5.1 [facility] Comment on above: Order Comment: Speci men Type: BLOOD SPECIMEN Performed By: #### 2 4321-2, , 2776-05 ####[facility] LABORATORYCLIA [id number] [place] [address] [place] Sodium [Moles/Vol] 144 mmol/L Normal 136-144 [facility] Comment on above: Order Comment: Speci men Type: BLOOD SPECIMEN Performed By: #### 2 4321-2, 66383-0, 2776-05 ####[facility] LABORATORYCLIA [id number] [address] Urea nitrogen [Mass/Vol] 31 mg/dL High 9-24 [facility] Comment on above: Order Comment: Speci men Type: BLOOD SPECIMEN Performed By: #### 2 4321-2, , 2776-05 ####[facility] LABORATORYCLIA [id number] [address] CASE MANAGEMon 06-06-2021 CASE MANAGEM Normal [facility] CBC panel Auto (Bld)on 06-06 Erythrocyte distribution width (RBC) [Ratio] 15.8 % High 11.5-15.0 [facility] Comment on above: Order Comment: Speci men Type: BLOOD SPECIMEN Performed By: #### 5 8410-2 ####[facility] LABORATORYCLIA [id number] [address] Hematocrit (Bld) [Volume fraction] 39.5 % Normal 39.0-51.0 [facility] Comment on above: Order Comment: Speci men Type: BLOOD SPECIMEN Performed By: #### 5 8410-2 ####[facility] LABORATORYCLIA [id number] [address] Hemoglobin (Bld) [Mass/Vol] 12.2 g/dL Low 13.0-17.0 [facility] Comment on above: Order Comment: Speci men Type: BLOOD SPECIMEN Performed By: #### 5 8410-2 ####[facility] LABORATORYCLIA [id number] [address] MCH (RBC) [Entitic mass] 27.8 pg Normal 26.0-34.0 [facility] Comment on above: Order Comment: Speci men Type: BLOOD SPECIMEN Performed By: #### 5 8410-2 ####[facility] LABORATORYCLIA [id number] [address] MCHC (RBC) [Mass/Vol] 30.9 g/dL Normal 30.5-36.0 [facility] Comment on above: Order Comment: Speci men Type: BLOOD SPECIMEN Performed By: #### 5 8410-2 ####[facility] LABORATORYCLIA [id number] [address] MCV (RBC) [Entitic vol] 90.0 fL Normal 80.0-100.0 [facility] Comment on above: Order Comment: Speci men Type: BLOOD SPECIMEN Performed By: #### 5 8410-2 ####[facility] LABORATORYCLIA [id number] [address] Nucleated RBC (Bld) [#/Vol] 10*3/uL Normal <0.01 [facility] Comment on above: Order Comment: Speci men Type: BLOOD SPECIMEN Performed By: #### 5 8410-2 ####[facility] LABORATORYCLIA [id number] [address] Platelet mean volume (Bld) [Entitic vol] 10.4 fL Normal 9.0-12.7 [facility] Comment on above: Order Comment: Speci men Type: BLOOD SPECIMEN Performed By: #### 5 8410-2 ####[facility] LABORATORYCLIA [id number] [address] Platelets (Bld) [#/Vol] 236 10*3/uL Normal 150-400 [facility] Comment on above: Order Comment: Speci men Type: BLOOD SPECIMEN Performed By: #### 5 8410-2 ####[facility]ORATORYCLIA [id number] [address] RBC (Bld) [#/Vol] 4.39 10*6/uL Normal 4.20-6.00 [facility] Comment on above: Order Comment: Speci men Type: BLOOD SPECIMEN Performed By: #### 5 8410-2 ####[facility] LABORATORYCLIA [id number] [place], [place] [address] [place] [address] WBC (Bld) [#/Vol] 9.74 10*3/uL Normal 3.70-11.00 [facility] Comment on above: Order Comment: Speci men Type: BLOOD SPECIMEN Performed By: #### 5 8410-2 ####[facility] LABORATORYCLIA [id number] [place] [address] [facility] CONSULT PROGon 06-06-2021 CONSULT PROG Normal [facility] CONSULT PROG Normal [facility] Magnesium SerPl-mCncon 06-06 Magnesium [Mass/Vol] 2.5 mg/dL High 1.7-2.3 [facility] Comment on above: Order Comment: Speci men Type: BLOOD SPECIMEN Performed By: #### 2 4321-2, 73007-3, 2777-1 ####[facility] LABORATORYCLIA [id number] [address] PT panel Coag (PPP)on 2021 INR Coag (PPP) [Relative time] 1.0 {INR} Normal 0.9-1.3 [facility] Comment on above: Order Comment: Speci men Type: BLOOD SPECIMEN Result Comment: Yris min K Antagonist (VKA) Therapeutic Range: INR 2 to 3 (Target INR of 2.5)Note: For patients treated with VKA drugs, such as warfarin, the [place] [employer] 2012 Guideline recommends [...] 70: 252-289 Performed By: #### 3 4528-0, 46184-3 ####[facility] LABORATORYCLIA [id number] [address] PT Coag (PPP) [Time] 11.4 s Normal 9.7-13.0 [facility] Comment on above: Order Comment: Speci men Type: BLOOD SPECIMEN Performed By: #### 3 4528-0, 46181-8 ####[facility] LABORATORYCLIA [id number] [address] Phosphate SerPl-mCncon 06-06 Phosphate [Mass/Vol] 2.3 mg/dL Low 2.7-4.8 [facility] Comment on above: Order Comment: Speci men Type: BLOOD SPECIMEN Performed By: #### 2 4321-2, 55671-2, 2777-1 ####[facility] LABORATORYCLIA [id number] [address] THROMBOGRAPH HEPARINASE PANE Kiel 06-06-2021 Clot angle after addition of heparinase TEG (Bld) [Angle] 70.2 degrees Normal 47.0-74.0 [facility] Comment on above: Order Comment: Speci men Type: BLOOD SPECIMEN Performed By: #### T EGHPP ####[facility] LABORATORYCLIA [id number] [address] Clot Lysis 30 Min post maximum clot amplitude TEG (Bld) [Length fraction] 0.0 % Normal 0.0-8.0 [facility] Comment on above: Order Comment: Speci men Type: BLOOD SPECIMEN Performed By: #### T EGHPP ####[facility] LABORATORYCLIA [id number] [address] Clotting time after addition of heparinase TEG (Bld) 5.7 minutes Normal 4.0-10.0 [facility] Comment on above: Order Comment: Speci men Type: BLOOD SPECIMEN Performed By: #### T EGHPP ####[facility] LABORATORYCLIA [id number] [address] Coagulation index TEG Qn (Bld) 1.2 Normal -4.6-3.2 [facility] Comment on above: Order Comment: Speci men Type: BLOOD SPECIMEN Result Comment: The Coagulation Index, a secondary parameter, is labeled by the egg trayer as for "research use only" and is used per the egg trayer's instructions. Its performance characteristics were determined by [facility] Pathology and Laboratory Medicine [place] in a manner consistent with CLIA requirements. This test has not been cleared by the U.S. Food and Drug Administration. Performed By: #### T EGHPP ####[facility] LABORATORYCLIA [id number] [address] Maximum clot firmness after addition of heparinase TEG (Bld) [Length] 64.0 mm Normal 51.0-75.0 [facility] Comment on above: Order Comment: Speci men Type: BLOOD SPECIMEN Performed By: #### T EGHPP ####[facility] LABORATORYCLIA [id number] [address] OF [facility] Vancomycin random [Mass/Vol] on 06-06-2021 Vancomycin [Mass/Vol] 17.4 ug/mL Normal 10.0-20.0 [facility] Comment on above: Order Comment: Speci men Type: BLOOD SPECIMEN Result Comment: Refe rence ranges and high/low indicator flags are provided as general guidelines only. The treating physician must determine appropriate target levels/dosing based on the specific clinical situation. Performed By: #### 4 091-5 ####[facility] LABORATORYCLIA [id number] [address] STATES OF [facility] Vancomycin [Mass/Vol] 13.5 ug/mL Normal 10.0-20.0 [facility] Comment on above: Order Comment: Speci men Type: BLOOD SPECIMEN Result Comment: Refe rence ranges and high/low indicator flags are provided as general guidelines only. The treating physician must determine appropriate target levels/dosing based on the specific clinical situation. Performed By: #### 4 091-5 ####[facility] LABORATORYCLIA [id number] [address] [place] aPTT PPPon 06-06-2021 aPTT Coag (PPP) [Time] 27.8 s Normal 23.0-32.4 [facility] Comment on above: Order Comment: Speci men Type: BLOOD SPECIMEN Performed By: #### 3 4528-0, 55136-6 ####[facility] LABORATORYCLIA [id number] [address] [place] Basic metabolic 2000 panelon 06-05-2021 Anion gap [Moles/Vol] 11 mmol/L Normal 9-18 [facility] Comment on above: Order Comment: Speci men Type: BLOOD SPECIMEN Performed By: #### 1 9123-9, 27637-6, 2776- ####[facility] LABORATORYCLIA [id number] [place] [address] [place] Calcium [Mass/Vol] 8.6 mg/dL Normal 8.5-10.2 [facility] Comment on above: Order Comment: Speci men Type: BLOOD SPECIMEN Performed By: #### 1 9123-9, 73978-6, 2776- ####[facility] LABORATORYCLIA [id number] [address] STATES OF [facility] Chloride [Moles/Vol] 108 mmol/L High 97-105 [facility] Comment on above: Order Comment: Speci men Type: BLOOD SPECIMEN Performed By: #### 1 9123-9, 62337-4, 2776- ####[facility]ORATORYCLIA [id number] [place] [address] [place] CO2 [Moles/Vol] 25 mmol/L Normal 22-30 [facility] Comment on above: Order Comment: Speci men Type: BLOOD SPECIMEN Performed By: #### 1 9123-9, 56528-8, 2776- ####[facility]ATORYCLIA [id number] [place] [address] [place] Creatinine [Mass/Vol] 0.77 mg/dL Normal 0.73-1.22 [facility] Comment on above: Order Comment: [facility] Type: BLOOD SPECIMEN Performed By: #### 1 9123-9, 04223-6, 2777-1 ####[facility]ORATORYCLIA [id number] [place] [address] [place] GFR/1.73 sq M.predicted [...] actual GFR. Performed By: #### 1 9123-9, 85675-0, 2777-1 ####[facility]ITAL[facility] [id number] [place] [address] [place] Glucose [Mass/Vol] 96 mg/dL Normal 74-99 [facility] Comment on above: Order Comment: [facility] Type: BLOOD SPECIMEN Result Comment: The [place] Diabetes Association (ADA) provides guidance for cutoff [...] Standards of Medical Care in Diabetes 2016, [place] [employer]. Diabetes Care. 2016.39(Suppl 1). Performed By: #### 1 9123-9, 79388-9, 2776-05 ####[facility]ORATORYCLIA [id number] [address] [facility] Potassium [Moles/Vol] 3.9 mmol/L Normal 3.7-5.1 [facility] Comment on above: Order Comment: Speci men Type: BLOOD SPECIMEN Performed By: #### 1 9123-9, 22765-3, 2776- ####[facility]ORYCLIA [id number] [address] Sodium [Moles/Vol] 144 mmol/L Normal 136-144 [facility] Comment on above: Order Comment: Speci men Type: BLOOD SPECIMEN Performed By: #### 1 91239, 22849-4, 2776-05 ####[facility]ATORYCLIA [id number] [address] Urea nitrogen [Mass/Vol] 26 mg/dL High 9-24 [facility] Comment on above: Order Comment: Speci men Type: BLOOD SPECIMEN Performed By: #### 1 9123-9, , 2776-05 ####[facility]ATORYCLIA [id number] [address] CBC panel Auto (Bld)on 06-05 Erythrocyte distribution width (RBC) [Ratio] 15.9 % High 11.5-15.0 [facility] Comment on above: Order Comment: Speci men Type: BLOOD SPECIMEN Performed By: #### 5 8410-2 ####[facility]ORYCLIA [id number] [address] Hematocrit (Bld) [Volume fraction] 39.6 % Normal 39.0-51.0 [facility] Comment on above: Order Comment: Speci men Type: BLOOD SPECIMEN Performed By: #### 5 8410-2 ####[facility]ATORYCLIA [id number] [address] Hemoglobin (Bld) [Mass/Vol] 12.3 g/dL Low 13.0-17.0 [facility] Comment on above: Order Comment: Speci men Type: BLOOD SPECIMEN Performed By: #### 5 8410-2 ####[facility]ATORYCLIA [id number] [address] MCH (RBC) [Entitic mass] 28.1 pg Normal 26.0-34.0 [facility] Comment on above: Order Comment: Speci men Type: BLOOD SPECIMEN Performed By: #### 5 8410-2 ####[facility]ATORYCLIA [id number] [address] MCHC (RBC) [Mass/Vol] 31.1 g/dL Normal 30.5-36.0 [facility] Comment on above: Order Comment: Speci men Type: BLOOD SPECIMEN Performed By: #### 5 8410-2 ####[facility]ATORYCLIA [id number] [address] MCV (RBC) [Entitic vol] 90.4 fL Normal 80.0-100.0 [facility] Comment on above: Order Comment: Speci men Type: BLOOD SPECIMEN Performed By: #### 5 8410-2 ####[facility]ATORYCLIA [id number] [address] Nucleated RBC (Bld) [#/Vol] 10*3/uL Normal <0.01 [facility] Comment on above: Order Comment: Speci men Type: BLOOD SPECIMEN Performed By: #### 5 8410-2 ####[facility]ATORYCLIA [id number] [address] Platelet mean volume (Bld) [Entitic vol] 10.5 fL Normal 9.0-12.7 [facility] Comment on above: Order Comment: Speci men Type: BLOOD SPECIMEN Performed By: #### 5 8410-2 ####[facility]ATORYCLIA [id number] [address] Platelets (Bld) [#/Vol] 224 10*3/uL Normal 150-400 [facility] Comment on above: Order Comment: Speci men Type: BLOOD SPECIMEN Performed By: #### 5 8410-2 ####[facility] LABORATORYCLIA [id number] [address] RBC (Bld) [#/Vol] 4.38 10*6/uL Normal 4.20-6.00 [facility] Comment on above: Order Comment: Speci men Type: BLOOD SPECIMEN Performed By: #### 5 8410-2 ####[facility]ORATORYCLIA [id number] [address] OF [facility] WBC (Bld) [#/Vol] 9.66 10*3/uL Normal 3.70-11.00 [facility] Comment on above: Order Comment: Speci men Type: BLOOD SPECIMEN Performed By: #### 5 8410-2 ####[facility]ATORYCLIA [id number] [address] CONSULT PROGon 06-05-2021 CONSULT PROG Normal [facility] Gas and Carbon monoxide pane l (BldV)on 06-05-2021 Base excess Calc (BldV) [Moles/Vol] 1.8 mmol/L Normal 0-2 [facility] Comment on above: Order Comment: Speci men Type: VENOUS BLOOD SPECIMEN Performed By: #### 2 4344-4 ####[facility]ATORYCLIA [id number] [address] Body temperature 100.4 [degF] Normal [facility] Comment on above: Order Comment: Speci men Type: VENOUS BLOOD SPECIMEN Performed By: #### 2 4344-4 ####[facility]ATORYCLIA [id number] [address] CALCIUM IONIZED, PH CORRECTED 1.21 mmol/L Normal 1.08-1.30 [facility] Comment on above: Order Comment: Speci men Type: VENOUS BLOOD SPECIMEN Performed By: #### 2 4344-4 ####[facility]ATORYCLIA [id number] [address] Calcium.ionized (BldV) [Mass/Vol] 1.19 mmol/L Normal 1.08-1.30 [facility] Comment on above: Order Comment: Speci men Type: VENOUS BLOOD SPECIMEN Performed By: #### 2 4344-4 ####[facility]ATORYCLIA [id number] [address] Carboxyhemoglobin (BldV) [Mass fraction] 1.0 % Normal 0.0-2.0 [facility] Comment on above: Order Comment: Speci men Type: VENOUS BLOOD SPECIMEN Result Comment: Carb oxyhemoglobin Reference Range for Smokers: 2.0-8.0% Performed By: #### 2 4344-4 ####[facility]ATORYCLIA [id number] [address] CO2 (BldV) [Partial pressure] 41 mm[Hg] Low 42-55 [facility] Comment on above: Order Comment: Speci men Type: VENOUS BLOOD SPECIMEN Performed By: #### 2 4344-4 ####[facility]ATORYCLIA [id number] [address] CO2 [Moles/Vol] 23.4 mmol/L Low 25-29 [facility] Comment on above: Order Comment: Speci men Type: VENOUS BLOOD SPECIMEN Performed By: #### 2 4344-4 ####[facility]ATORYCLIA [id number] [address] CO2 adjusted to patient's actual temperature (BldV) [Partial pressure] 43 mmHg Normal 42-55 [facility] Comment on above: Order Comment: Speci men Type: VENOUS BLOOD SPECIMEN Performed By: #### 2 4344-4 ####[facility]ATORYCLIA [id number] [address] Glucose [Mass/Vol] 101 mg/dL Normal 60-105 [facility] Comment on above: Order Comment: Speci men Type: VENOUS BLOOD SPECIMEN Performed By: #### 2 4344-4 ####[facility]ORYCLIA [id number] [place], [place] [address] [place] [address] [place] HCO3 (Bld) [Moles/Vol] 26.0 mmol/L Normal 24-28 [facility] Comment on above: Order Comment: Speci men Type: VENOUS BLOOD SPECIMEN Performed By: #### 2 4344-4 ####[facility]ORYCLIA [id number] [address] [place] Hematocrit (Bld) [Volume fraction] 38.4 % Low 39.0-51.0 [facility] Comment on above: Order Comment: Speci men Type: VENOUS BLOOD SPECIMEN Performed By: #### 2 4344-4 ####[facility]ATORYCLIA [id number] [address] OF [facility] Hemoglobin (Bld) [Mass/Vol] 12.5 g/dL Low 13.0-17.0 [facility] Comment on above: Order Comment: Speci men Type: VENOUS BLOOD SPECIMEN Performed By: #### 2 4344-4 ####[facility]ATORYCLIA [id number] [address] STATES OF [facility] Methemoglobin (Bld) [Mass fraction] % Normal 0.0-1.5 [facility] Comment on above: Order Comment: Speci men Type: VENOUS BLOOD SPECIMEN Performed By: #### 2 4344-4 ####[facility]ORYCLIA [id number] [address] [place] O2 THERAPY Ventilator Normal [facility] Comment on above: Order Comment: Speci men Type: VENOUS BLOOD SPECIMEN Performed By: #### 2 4344-4 ####[facility]ORYCLIA [id number] [address] Oxygen (BldV) [Partial pressure] 44 mm[Hg] Normal 35-45 [facility] Comment on above: Order Comment: Speci men Type: VENOUS BLOOD SPECIMEN Performed By: #### 2 4344-4 ####[facility]ATORYCLIA [id number] [address] Oxygen adjusted to patient's actual temperature (BldV) [Partial pressure] 46.8 mmHg High 35-45 [facility] Comment on above: Order Comment: Speci men Type: VENOUS BLOOD SPECIMEN Performed By: #### 2 4344-4 ####[facility] LABORATORYCLIA [id number] [address] Oxygen saturation in Blood 76.5 % Normal 60-85 [facility] Comment on above: Order Comment: Speci men Type: VENOUS BLOOD SPECIMEN Performed By: #### 2 4344-4 ####[facility]ATORYCLIA [id number] [address] Oxyhemoglobin (BldV) [Mass fraction] 75 % Normal 60-85 [facility] Comment on above: Order Comment: Speci men Type: VENOUS BLOOD SPECIMEN Performed By: #### 2 4344-4 ####[facility]ATORYCLIA [id number] [address] pH (BldV) 7.42 [pH] Normal 7.32-7.42 [facility] Comment on above: Order Comment: Speci men Type: VENOUS BLOOD SPECIMEN Performed By: #### 2 4344-4 ####[facility]ATORYCLIA [id number] [address] pH adjusted to patient's actual temperature (BldV) 7.40 Normal 7.32-7.42 [facility] Comment on above: Order Comment: Speci men Type: VENOUS BLOOD SPECIMEN Performed By: #### 2 4344-4 ####[facility]ORYCLIA [id number] [address] [place] Potassium [Moles/Vol] 3.7 mmol/L Normal 3.5-5.0 [facility] Comment on above: Order Comment: Speci men Type: VENOUS BLOOD SPECIMEN Performed By: #### 2 4344-4 ####[facility]ORYCLIA [id number] [address] Sodium [Moles/Vol] 141 mmol/L Normal 136-144 [facility] Comment on above: Order Comment: Speci men Type: VENOUS BLOOD SPECIMEN Performed By: #### 2 4344-4 ####[facility]ATORYCLIA [id number] [address] [place] Magnesium SerPl-mCncon 06-05 Magnesium [Mass/Vol] 2.3 mg/dL Normal 1.7-2.3 [facility] Comment on above: Order Comment: Speci men Type: BLOOD SPECIMEN Performed By: #### 1 9123-9, 36604-5, 2777-1 ####[facility]ATORYCLIA [id number] [address] Phosphate SerPl-mCncon 06-05 Phosphate [Mass/Vol] 2.9 mg/dL Normal 2.7-4.8 [facility] Comment on above: Order Comment: Speci men Type: BLOOD SPECIMEN Performed By: #### 1 9123-9, 67487-4, 2777-1 ####[facility]ATORYCLIA [id number] [address] OF [facility] Vancomycin random [Mass/Vol] on 06-05-2021 Vancomycin [Mass/Vol] 23.2 ug/mL High 10.0-20.0 [facility] Comment on above: Order Comment: Speci men Type: BLOOD SPECIMEN Result Comment: Refe rence ranges and high/low indicator flags are provided as general guidelines only. The treating physician must determine appropriate target levels/dosing based on the specific clinical situation. Performed By: #### 4 091-5 ####[facility]ORATORYCLIA [id number] [place] [address] [place] (1,3)-F-T-FHTZUYrl 2 (1,3) B-D GLUCAN <31 Normal <60 [facility] Comment on above: Order Comment: Speci men Type: BLOOD SPECIMEN Performed By: #### B DGLUC ####[facility] LABCLIA [id number] [employer] [address] [email or web address] [address] [place] (1,3) B-D GLUCAN, QUAL Negative Normal NEGAT [facility] Comment on above: Order Comment: Speci men Type: BLOOD SPECIMEN Result Comment: Cert ain fungi, such as the genus Cryptococcus which produces very low levels of (1,3)-phzw-J-ehtvgl, may not result in serum (1,3)-mgaw-Q-jctjdj sufficiently elevated so as to be detected by the assay. Infections with fungi of the order Mucorales such as Absidia, Mucor and Rhizopus which are not known to produce (1,3)-adzz-S-wfkkar, are also observed to yield low serum (1,3)-bwuw-X-gbtojd titers.In addition, the yeast phase of Blastomyces dermatitidis produces little (1,3)-lvmt-W-tjnhjs and may not be detected by the assay. Performed By: #### B DGLUC ####[facility] LABCLIA [id number] [employer] [place] [address] [place] ALLIED HEALTHon 06-04-2021 ALLIED HEALTH Normal [facility] ALLIED HEALTH Normal [facility] ARTERIAL BLOOD GASESon 06-04 Base excess Calc (Bld) [Moles/Vol] 3 mmol/L High 0-2 [facility] Comment on above: Order Comment: Speci men Type: ARTERIAL BLOOD SPECIMEN Performed By: #### A LLBG ####[facility]ORATORYCLIA [id number] [address] [place] Body temperature 98.06 [degF] Normal [facility] Comment on above: Order Comment: Speci men Type: ARTERIAL BLOOD SPECIMEN Performed By: #### A LLBG ####[facility]ORATORYCLIA [id number] [address] [place] CALCIUM IONIZED, PH CORRECTED 1.19 mmol/L Normal 1.08-1.30 [facility] Comment on above: Order Comment: Speci men Type: ARTERIAL BLOOD SPECIMEN Performed By: #### A LLBG ####[facility]ATORYCLIA [id number] [address] OF [facility] Calcium.ionized (BldV) [Mass/Vol] 1.14 mmol/L Normal 1.08-1.30 [facility] Comment on above: Order Comment: Speci men Type: ARTERIAL BLOOD SPECIMEN Performed By: #### A LLBG ####[facility]ORATORYCLIA [id number] [address] OF [facility] Carboxyhemoglobin (BldA) [Mass fraction] 1.2 % Normal 0.0-2.0 [facility] Comment on above: Order Comment: Speci men Type: ARTERIAL BLOOD SPECIMEN Result Comment: Carb oxyhemoglobin Reference Range for Smokers: 2.0-8.0% Performed By: #### A LLBG ####[facility]ORATORYCLIA [id number] [address] CO2 (Bld) [Partial pressure] 35 mm Hg Low 36-46 [facility] Comment on above: Order Comment: Speci men Type: ARTERIAL BLOOD SPECIMEN Performed By: #### A LLBG ####[facility]ORATORYCLIA [id number] [address] CO2 [Moles/Vol] 23.2 mmol/L Normal 22-28 [facility] Comment on above: Order Comment: Speci men Type: ARTERIAL BLOOD SPECIMEN Performed By: #### A LLBG ####[facility]ORATORYCLIA [id number] [address] CO2 adjusted to patient's actual temperature (Bld) [Partial pressure] 34 mmHg Low 36-46 [facility] Comment on above: Order Comment: Speci men Type: ARTERIAL BLOOD SPECIMEN Performed By: #### A LLBG ####[facility]ORYCLIA [id number] [address] Glucose [Mass/Vol] 115 mg/dL High 60-105 [facility] Comment on above: Order Comment: Speci men Type: ARTERIAL BLOOD SPECIMEN Performed By: #### A LLBG ####[facility]ORYCLIA [id number] [address] [place] HCO3 (Bld) [Moles/Vol] 26 mmol/L Normal 22-26 [facility] Comment on above: Order Comment: Speci men Type: ARTERIAL BLOOD SPECIMEN Performed By: #### A LLBG ####[facility]ORYCLIA [id number] [address] [place] Hematocrit (Bld) [Volume fraction] 35.3 % Low 39.0-51.0 [facility] Comment on above: Order Comment: Speci men Type: ARTERIAL BLOOD SPECIMEN Performed By: #### A LLBG ####[facility]ATORYCLIA [id number] [address] [place] Hemoglobin (Bld) [Mass/Vol] 11.5 g/dL Low 13.0-17.0 [facility] Comment on above: Order Comment: Speci men Type: ARTERIAL BLOOD SPECIMEN Performed By: #### A LLBG ####[facility]ATORYCLIA [id number] [address] Methemoglobin (Bld) [Mass fraction] % Normal 0.0-1.5 [facility] Comment on above: Order Comment: Speci men Type: ARTERIAL BLOOD SPECIMEN Performed By: #### A LLBG ####[facility]ATORYCLIA [id number] [address] [place] O2 THERAPY Ventilator Normal [facility] Comment on above: Order Comment: Speci men Type: ARTERIAL BLOOD SPECIMEN Performed By: #### A LLBG ####[facility]ORYCLIA [id number] [address] [place] Oxygen (Bld) [Partial pressure] 66 mm Hg Low 85-95 [facility] Comment on above: Order Comment: Speci men Type: ARTERIAL BLOOD SPECIMEN Performed By: #### A LLBG ####[facility]ORYCLIA [id number] [address] [place] Oxygen adjusted to patient's actual temperature (Bld) [Partial pressure] 64.3 mmHg Low 85-95 [facility] Comment on above: Order Comment: Speci men Type: ARTERIAL BLOOD SPECIMEN Performed By: #### A LLBG ####[facility]ATORYCLIA [id number] [address] OXYGEN SATURATION, ARTERIAL 95 % Normal 95-98 [facility] Comment on above: Order Comment: Speci men Type: ARTERIAL BLOOD SPECIMEN Performed By: #### A LLBG ####[facility]ORYCLIA [id number] [address] Oxyhemoglobin (BldA) [Mass fraction] 93 % Low 95-98 [facility] Comment on above: Order Comment: Speci men Type: ARTERIAL BLOOD SPECIMEN Performed By: #### A LLBG ####[facility]ATORYCLIA [id number] [address] pH (Bld) 7.49 [pH] High 7.35-7.45 [facility] Comment on above: Order Comment: Speci men Type: ARTERIAL BLOOD SPECIMEN Performed By: #### A LLBG ####[facility]ATORYCLIA [id number] [address] pH adjusted to patient's actual temperature (Bld) 7.49 High 7.35-7.45 [facility] Comment on above: Order Comment: Speci men Type: ARTERIAL BLOOD SPECIMEN Performed By: #### A LLBG ####[facility]ORYCLIA [id number] [address] Potassium [Moles/Vol] 2.8 mmol/L Low 3.5-5.0 [facility] Comment on above: Order Comment: Speci men Type: ARTERIAL BLOOD SPECIMEN Performed By: #### A LLBG ####[facility]ATORYCLIA [id number] [address] Bas Metab 2000 Pnl SerPlon 0 06-04-2021 Sodium [Moles/Vol] 143 mmol/L Normal 136-144 [facility] Comment on above: Order Comment: Speci men Type: BLOOD SPECIMEN Performed By: #### 2 777-1, , ####[facility]ORYCLIA [id number] [address] Order Comment: Speci men Type: ARTERIAL BLOOD SPECIMEN Performed By: #### A LLBG ####[facility]ORYCLIA [id number] [address] Basic metabolic 2000 panelon 06-04-2021 Anion gap [Moles/Vol] 11 mmol/L Normal 9-18 [facility] Comment on above: Order Comment: Speci men Type: BLOOD SPECIMEN Performed By: #### 2 777-1, , ####[facility]ORYCLIA [id number] [address] Calcium [Mass/Vol] 8.5 mg/dL Normal 8.5-10.2 [facility] Comment on above: Order Comment: Speci men Type: BLOOD SPECIMEN Performed By: #### 2 777-1, , ####[facility]ORYCLIA [id number] [address] Chloride [Moles/Vol] 107 mmol/L High 97-105 [facility] Comment on above: Order Comment: Speci men Type: BLOOD SPECIMEN Performed By: #### 2 777-1, , ####[facility]ORYCLIA [id number] [address] STATES OF [facility] CO2 [Moles/Vol] 25 mmol/L Normal 22-30 [facility] Comment on above: Order Comment: Speci men Type: BLOOD SPECIMEN Performed By: #### 2 777-1, , ####[facility]ORYCLIA [id number] [address] [place] Creatinine [Mass/Vol] 0.77 mg/dL Normal 0.73-1.22 [facility] Comment on above: Order Comment: Speci men Type: BLOOD SPECIMEN Performed By: #### 2 777-1, 74198-3, ####[facility]ORATORYCLIA [id number] [place] [address] [place] GFR/1.73 sq M.predicted [...] GFR. Performed By: #### 2 777-1, , ####[facility] [id number] [place] [id number] [place] Glucose [Mass/Vol] 107 mg/dL High 74-99 [facility] Comment on above: Order Comment: [facility] Type: BLOOD SPECIMEN Result Comment: The [place] [employer] (ADA) provides guidance for cutoff [...] Standards of Medical Care in Diabetes 2016, [place] [employer]. Diabetes Care. 2016.39(Suppl 1). Performed By: #### 2 777-1, , ####[facility] LABORATORYCLIA [id number] [address] Potassium [Moles/Vol] 3.1 mmol/L Low 3.7-5.1 [facility] Comment on above: Order Comment: Speci men Type: BLOOD SPECIMEN Performed By: #### 2 777-1, , ####[facility] LABORATORYCLIA [id number] [address] Urea nitrogen [Mass/Vol] 19 mg/dL Normal 9-24 [facility] Comment on above: Order Comment: Speci men Type: BLOOD SPECIMEN Performed By: #### 2 777-1, , ####[facility]ORATORYCLIA [id number] [address] CBC panel Auto (Bld)on 06-04 Erythrocyte distribution width (RBC) [Ratio] 15.8 % High 11.5-15.0 [facility] Comment on above: Order Comment: Speci men Type: BLOOD SPECIMEN Performed By: #### 5 8410-2 ####[facility]ATORYCLIA [id number] [address] Hematocrit (Bld) [Volume fraction] 36.9 % Low 39.0-51.0 [facility] Comment on above: Order Comment: Speci men Type: BLOOD SPECIMEN Performed By: #### 5 8410-2 ####[facility]ATORYCLIA [id number] [address] Hemoglobin (Bld) [Mass/Vol] 11.2 g/dL Low 13.0-17.0 [facility] Comment on above: Order Comment: Speci men Type: BLOOD SPECIMEN Performed By: #### 5 8410-2 ####[facility]ORATORYCLIA [id number] [address] OF [facility] MCH (RBC) [Entitic mass] 27.3 pg Normal 26.0-34.0 [facility] Comment on above: Order Comment: Speci men Type: BLOOD SPECIMEN Performed By: #### 5 8410-2 ####[facility]ATORYCLIA [id number] [address] MCHC (RBC) [Mass/Vol] 30.4 g/dL Low 30.5-36.0 [facility] Comment on above: Order Comment: Speci men Type: BLOOD SPECIMEN Performed By: #### 5 8410-2 ####[facility]ATORYCLIA [id number] [address] MCV (RBC) [Entitic vol] 89.8 fL Normal 80.0-100.0 [facility] Comment on above: Order Comment: Speci men Type: BLOOD SPECIMEN Performed By: #### 5 8410-2 ####[facility]ATORYCLIA [id number] [address] Nucleated RBC (Bld) [#/Vol] 10*3/uL Normal <0.01 [facility] Comment on above: Order Comment: Speci men Type: BLOOD SPECIMEN Performed By: #### 5 8410-2 ####[facility]ATORYCLIA [id number] [address] Platelet mean volume (Bld) [Entitic vol] 10.7 fL Normal 9.0-12.7 [facility] Comment on above: Order Comment: Speci men Type: BLOOD SPECIMEN Performed By: #### 5 8410-2 ####[facility]ATORYCLIA [id number] [address] Platelets (Bld) [#/Vol] 174 10*3/uL Normal 150-400 [facility] Comment on above: Order Comment: Speci men Type: BLOOD SPECIMEN Performed By: #### 5 8410-2 ####[facility]ATORYCLIA [id number] RBC (Bld) [#/Vol] 4.11 10*6/uL Low 4.20-6.00 [facility] Comment on above: Order Comment: Speci men Type: BLOOD SPECIMEN Performed By: #### 5 8410-2 ####[facility]ORATORYCLIA [id number] [facility] WBC (Bld) [#/Vol] 8.29 10*3/uL Normal 3.70-11.00 [facility] Comment on above: Order Comment: Speci men Type: BLOOD SPECIMEN Performed By: #### 5 8410-2 ####[facility] LABORATORYCLIA [id number] [address] CONSULT PROGon 06-04-2021 CONSULT PROG Normal [...] BLOOD SPECIMEN Performed By: #### 2 777-1, 28645-3, 74217-0 ####[facility] LABORATORYCLIA [id number] [address] NT-proBNP SerPl-mCncon 06-04 Natriuretic peptide.B prohormone N-Terminal [Mass/Vol] 229 pg/mL High <125 [facility] Comment on above: Order Comment: Speci men Type: BLOOD SPECIMEN Performed By: #### 3 3762-6, 4091-5 ####[facility] LABORATORYCLIA [id number] [address] Phosphate SerPl-mCncon 06-04 Phosphate [Mass/Vol] 2.0 mg/dL Low 2.7-4.8 [facility] Comment on above: Order Comment: Speci men Type: BLOOD SPECIMEN Performed By: #### 2 777-1, 83565-9, 22189-4 ####[facility] LABORATORYCLIA [id number] [address] Vancomycin random [Mass/Vol] on 06-04-2021 Vancomycin [Mass/Vol] 35.2 ug/mL High 10.0-20.0 [facility] Comment on above: Order Comment: Speci men Type: BLOOD SPECIMEN Result Comment: Refe rence ranges and high/low indicator flags are provided as general guidelines only. The treating physician must determine appropriate target levels/dosing based on the specific clinical situation. Performed By: #### 3 3762-6, 4091-5 ####[facility] LABORATORYCLIA [id number] [address] XR ABDOMEN 1V SUPINEon 06-04 XR ABDOMEN 1V SUPINE Normal [facility] ALLIED HEALTHon 06-03-2021 ALLIED HEALTH Normal [facility] ARTERIAL BLOOD GASESon 06-03 Base excess Calc (Bld) [Moles/Vol] 5 mmol/L High 0-2 [facility] Comment on above: Order Comment: Speci men Type: ARTERIAL BLOOD SPECIMEN Performed By: #### A LLBG ####[facility] LABORATORYCLIA [id number] [address] Body temperature 99.5 [degF] Normal [facility] Comment on above: Order Comment: Speci men Type: ARTERIAL BLOOD SPECIMEN Performed By: #### A LLBG ####[facility] LABORATORYCLIA [id number] [address] CALCIUM IONIZED, PH CORRECTED 1.18 mmol/L Normal 1.08-1.30 [facility] Comment on above: Order Comment: Speci men Type: ARTERIAL BLOOD SPECIMEN Performed By: #### A LLBG ####[facility] LABORATORYCLIA [id number] [address] Calcium.ionized (BldV) [Mass/Vol] 1.16 mmol/L Normal 1.08-1.30 [facility] Comment on above: Order Comment: Speci men Type: ARTERIAL BLOOD SPECIMEN Performed By: #### A LLBG ####[facility]ORATORYCLIA [id number] [address] Carboxyhemoglobin (BldA) [Mass fraction] 1.2 % Normal 0.0-2.0 [facility] Comment on above: Order Comment: Speci men Type: ARTERIAL BLOOD SPECIMEN Result Comment: Carb oxyhemoglobin Reference Range for Smokers: 2.0-8.0% Performed By: #### A LLBG ####[facility] LABORATORYCLIA [id number] [address] CO2 (Bld) [Partial pressure] 45 mm Hg Normal 36-46 [facility] Comment on above: Order Comment: Speci men Type: ARTERIAL BLOOD SPECIMEN Performed By: #### A LLBG ####[facility] LABORATORYCLIA [id number] [address] CO2 [Moles/Vol] 26.9 mmol/L Normal 22-28 [facility] Comment on above: Order Comment: Speci men Type: ARTERIAL BLOOD SPECIMEN Performed By: #### A LLBG ####[facility] LABORATORYCLIA [id number] [address] CO2 adjusted to patient's actual temperature (Bld) [Partial pressure] 47 mmHg High 36-46 [facility] Comment on above: Order Comment: Speci men Type: ARTERIAL BLOOD SPECIMEN Performed By: #### A LLBG ####[facility] LABORATORYCLIA [id number] [address] [place] Glucose [Mass/Vol] 141 mg/dL High 60-105 [facility] Comment on above: Order Comment: Speci men Type: ARTERIAL BLOOD SPECIMEN Performed By: #### A LLBG ####[facility] LABORATORYCLIA [id number] [address] HCO3 (Bld) [Moles/Vol] 30 mmol/L High 22-26 [facility] Comment on above: Order Comment: Speci men Type: ARTERIAL BLOOD SPECIMEN Performed By: #### A LLBG ####[facility] LABORATORYCLIA [id number] [address] Hematocrit (Bld) [Volume fraction] 35.8 % Low 39.0-51.0 [facility] Comment on above: Order Comment: Speci men Type: ARTERIAL BLOOD SPECIMEN Performed By: #### A LLBG ####[facility] LABORATORYCLIA [id number] [address] Hemoglobin (Bld) [Mass/Vol] 11.6 g/dL Low 13.0-17.0 [facility] Comment on above: Order Comment: Speci men Type: ARTERIAL BLOOD SPECIMEN Performed By: #### A LLBG ####[facility] LABORATORYCLIA [id number] [address] Methemoglobin (Bld) [Mass fraction] % Normal 0.0-1.5 [facility] Comment on above: Order Comment: Speci men Type: ARTERIAL BLOOD SPECIMEN Performed By: #### A LLBG ####[facility] LABORATORYCLIA [id number] [address] O2 THERAPY Ventilator Normal [facility] Comment on above: Order Comment: Speci men Type: ARTERIAL BLOOD SPECIMEN Performed By: #### A LLBG ####[facility] LABORATORYCLIA [id number] [address] Oxygen (Bld) [Partial pressure] 69 mm Hg Low 85-95 [facility] Comment on above: Order Comment: Speci men Type: ARTERIAL BLOOD SPECIMEN Performed By: #### A LLBG ####[facility]ORATORYCLIA [id number] [address] Oxygen adjusted to patient's actual temperature (Bld) [Partial pressure] 70.8 mmHg Low 85-95 [facility] Comment on above: Order Comment: Speci men Type: ARTERIAL BLOOD SPECIMEN Performed By: #### A LLBG ####[facility] LABORATORYCLIA [id number] [address] OXYGEN SATURATION, ARTERIAL 94 % Low 95-98 [facility] Comment on above: Order Comment: Speci men Type: ARTERIAL BLOOD SPECIMEN Performed By: #### A LLBG ####[facility] LABORATORYCLIA [id number] [address] Oxyhemoglobin (BldA) [Mass fraction] 93 % Low 95-98 [facility] Comment on above: Order Comment: Speci men Type: ARTERIAL BLOOD SPECIMEN Performed By: #### A LLBG ####[facility] LABORATORYCLIA [id number] [address] [place] pH (Bld) 7.43 [pH] Normal 7.35-7.45 [facility] Comment on above: Order Comment: Speci men Type: ARTERIAL BLOOD SPECIMEN Performed By: #### A LLBG ####[facility] LABORATORYCLIA [id number] [address] pH adjusted to patient's actual temperature (Bld) 7.43 Normal 7.35-7.45 [facility] Comment on above: Order Comment: Speci men Type: ARTERIAL BLOOD SPECIMEN Performed By: #### A LLBG ####[facility] LABORATORYCLIA [id number] [address] STATES OF [facility] Potassium [Moles/Vol] 3.1 mmol/L Low 3.5-5.0 [facility] Comment on above: Order Comment: Speci men Type: ARTERIAL BLOOD SPECIMEN Performed By: #### A LLBG ####[facility] LABORATORYCLIA [id number] [address] [place] Sodium [Moles/Vol] 145 mmol/L High 136-144 [facility] Comment on above: Order Comment: Speci men Type: ARTERIAL BLOOD SPECIMEN Performed By: #### A LLBG ####[facility] LABORATORYCLIA [id number] [address] [place] ASPERGILLUS GALACTOMANNAN SE [...] is suspected. Performed By: #### A SGALS ####[facility] LAB REFERENCE LABCLIA [id number] [place] [address] OF [facility] Galactomannan Ag IA Qn <0.50 Normal [facility] Comment on above: Order Comment: Speci men Type: BLOOD SPECIMEN Result Comment: Inde x Values are Interpreted as Follows:Negative specimens <0.50Positive specimens >=0.50 Performed By: #### A SGALS ####[facility] LAB REFERENCE LABCLIA [id number] [facility] [facility] [place] [id number] [facility] Basic metabolic 2000 panelon 06-03-2021 Anion gap [Moles/Vol] 8 mmol/L Low 9-18 [facility] Comment on above: Order Comment: Speci men Type: BLOOD SPECIMEN Performed By: #### 1 9123-9, 2777-1, 54018-9 ####[facility] LABORATORYCLIA [id number] [address] STATES OF [facility] Calcium [Mass/Vol] 8.0 mg/dL Low 8.5-10.2 [facility] Comment on above: Order Comment: Speci men Type: BLOOD SPECIMEN Performed By: #### 1 9123-9, 2777-1, 07975-7 ####[facility] LABORATORYCLIA [id number] [address] STATES OF [facility] Chloride [Moles/Vol] 110 mmol/L High 97-105 [facility] Comment on above: Order Comment: Speci men Type: BLOOD SPECIMEN Performed By: #### 1 9123-9, 2777-1, 51204-4 ####[facility] LABORATORYCLIA [id number] [address] CO2 [Moles/Vol] 28 mmol/L Normal 22-30 [facility] Comment on above: Order Comment: Speci men Type: BLOOD SPECIMEN Performed By: #### 1 9123-9, 2777-1, 46343-4 ####[facility] LABORATORYCLIA [id number] [address] STATES OF [facility] Creatinine [Mass/Vol] 0.75 mg/dL Normal 0.73-1.22 [facility] Comment on above: Order Comment: Speci men Type: BLOOD SPECIMEN Performed By: #### 1 9123-9, 2777-, 88928-1 ####[facility] LABORATORYCLIA [id number] [address] STATES [facility] GFR/1.73 sq M.predicted MDRD (S/P/Bld) [Vol [...] GFR. Performed By: #### 1 9123-9, 2777-1, 24193-6 ####[facility] LABORATORYCLIA [id number] [address] [place] Glucose [Mass/Vol] 141 mg/dL High 74-99 [facility] Comment on above: Order Comment: Speci men Type: BLOOD SPECIMEN Result Comment: The [place] [employer] (ADA) provides guidance for cutoff [...] Standards of Medical Care in Diabetes 2016, [place] [employer]. Diabetes Care. 2016.39(Suppl 1). Performed By: #### 1 9123-9, 2777-, 47977-7 ####[facility] LABORATORYCLIA [id number] [address] STATES OF [facility] Potassium [Moles/Vol] 3.3 mmol/L Low 3.7-5.1 [facility] Comment on above: Order Comment: Speci men Type: BLOOD SPECIMEN Performed By: #### 1 9123-9, 2777, 20219-9 ####[facility] LABORATORYCLIA [id number] [address] Sodium [Moles/Vol] 146 mmol/L High 136-144 [facility] Comment on above: Order Comment: Speci men Type: BLOOD SPECIMEN Performed By: #### 1 9123-9, 2777, 67051-9 ####[facility] LABORATORYCLIA [id number] [address] Urea nitrogen [Mass/Vol] 10 mg/dL Normal 9-24 [facility] Comment on above: Order Comment: Speci men Type: BLOOD SPECIMEN Performed By: #### 1 9123-9, 2777-, 70247-8 ####[facility] LABORATORYCLIA [id number] [address] OF [facility] CASE MANAGEMon 06-03-2021 CASE MANAGEM Normal [facility] CBC panel Auto (Bld)on 06-03 Erythrocyte distribution width (RBC) [Ratio] 15.6 % High 11.5-15.0 [facility] Comment on above: Order Comment: Speci men Type: BLOOD SPECIMEN Performed By: #### 5 8410-2 ####[facility] LABORATORYCLIA [id number] [address] Hematocrit (Bld) [Volume fraction] 36.9 % Low 39.0-51.0 [facility] Comment on above: Order Comment: Speci men Type: BLOOD SPECIMEN Performed By: #### 5 8410-2 ####[facility] LABORATORYCLIA [id number] [address] Hemoglobin (Bld) [Mass/Vol] 11.1 g/dL Low 13.0-17.0 [facility] Comment on above: Order Comment: Speci men Type: BLOOD SPECIMEN Performed By: #### 5 8410-2 ####[facility] LABORATORYCLIA [id number] [address] MCH (RBC) [Entitic mass] 27.0 pg Normal 26.0-34.0 [facility] Comment on above: Order Comment: Speci men Type: BLOOD SPECIMEN Performed By: #### 5 8410-2 ####[facility] LABORATORYCLIA [id number] [address] MCHC (RBC) [Mass/Vol] 30.1 g/dL Low 30.5-36.0 [facility] Comment on above: Order Comment: Speci men Type: BLOOD SPECIMEN Performed By: #### 5 8410-2 ####[facility] LABORATORYCLIA [id number] [address] MCV (RBC) [Entitic vol] 89.8 fL Normal 80.0-100.0 [facility] Comment on above: Order Comment: Speci men Type: BLOOD SPECIMEN Performed By: #### 5 8410-2 ####[facility] LABORATORYCLIA [id number] [address] Nucleated RBC (Bld) [#/Vol] 10*3/uL Normal <0.01 [facility] Comment on above: Order Comment: Speci men Type: BLOOD SPECIMEN Performed By: #### 5 8410-2 ####[facility] LABORATORYCLIA [id number] [address] Platelet mean volume (Bld) [Entitic vol] 10.5 fL Normal 9.0-12.7 [facility] Comment on above: Order Comment: Speci men Type: BLOOD SPECIMEN Performed By: #### 5 8410-2 ####[facility] LABORATORYCLIA [id number] [address] [place] Platelets (Bld) [#/Vol] 196 10*3/uL Normal 150-400 [facility] Comment on above: Order Comment: Speci men Type: BLOOD SPECIMEN Performed By: #### 5 8410-2 ####[facility] LABORATORYCLIA [id number] [address] RBC (Bld) [#/Vol] 4.11 10*6/uL Low 4.20-6.00 [facility] Comment on above: Order Comment: Speci men Type: BLOOD SPECIMEN Performed By: #### 5 8410-2 ####[facility] LABORATORYCLIA [id number] [address] WBC (Bld) [#/Vol] 8.18 10*3/uL Normal 3.70-11.00 [facility] Comment on above: Order Comment: Speci men Type: BLOOD SPECIMEN Performed By: #### 5 8410-2 ####[facility] LABORATORYCLIA [id number] [address] OF [facility] CONSULTon 06-03-2021 CONSULT Normal [facility] CONSULT PROGon 06-03-2021 CONSULT PROG Normal [facility] Gas and Carbon monoxide pane l (BldV)on 06-03-2021 Base excess Calc (BldV) [Moles/Vol] 1.4 mmol/L Normal 0-2 [facility] Comment on above: Order Comment: Speci men Type: VENOUS BLOOD SPECIMEN Performed By: #### 2 4344-4 ####[facility] LABORATORYCLIA [id number] [place] [address] Body temperature 98.42 [degF] Normal [facility] Comment on above: Order Comment: Speci men Type: VENOUS BLOOD SPECIMEN Performed By: #### 2 4344-4 ####[facility] LABORATORYCLIA [id number] [address] CALCIUM IONIZED, PH CORRECTED 1.09 mmol/L Normal 1.08-1.30 [facility] Comment on above: Order Comment: Speci men Type: VENOUS BLOOD SPECIMEN Performed By: #### 2 4344-4 ####[facility] LABORATORYCLIA [id number] [address] Calcium.ionized (BldV) [Mass/Vol] 1.12 mmol/L Normal 1.08-1.30 [facility] Comment on above: Order Comment: Speci men Type: VENOUS BLOOD SPECIMEN Performed By: #### 2 4344-4 ####[facility] LABORATORYCLIA [id number] [address] Carboxyhemoglobin (BldV) [Mass fraction] 1.7 % Normal 0.0-2.0 [facility] Comment on above: Order Comment: Speci men Type: VENOUS BLOOD SPECIMEN Result Comment: Carb oxyhemoglobin Reference Range for Smokers: 2.0-8.0% Performed By: #### 2 4344-4 ####[facility] LABORATORYCLIA [id number] [address] CO2 (BldV) [Partial pressure] 50 mm[Hg] Normal 42-55 [facility] Comment on above: Order Comment: Speci men Type: VENOUS BLOOD SPECIMEN Performed By: #### 2 4344-4 ####[facility] LABORATORYCLIA [id number] [address] CO2 [Moles/Vol] 24.9 mmol/L Low 25-29 [facility] Comment on above: Order Comment: Speci men Type: VENOUS BLOOD SPECIMEN Performed By: #### 2 4344-4 ####[facility] LABORATORYCLIA [id number] [address] CO2 adjusted to patient's actual temperature (BldV) [Partial pressure] 50 mmHg Normal 42-55 [facility] Comment on above: Order Comment: Speci men Type: VENOUS BLOOD SPECIMEN Performed By: #### 2 4344-4 ####[facility] LABORATORYCLIA [id number] [place], [place] [address] [place] [address] [place] FIO2 30 % Normal [facility] Comment on above: Order Comment: Speci men Type: VENOUS BLOOD SPECIMEN Performed By: #### 2 4344-4 ####[facility] LABORATORYCLIA [id number] [address] Glucose [Mass/Vol] 191 mg/dL High 60-105 [facility] Comment on above: Order Comment: Speci men Type: VENOUS BLOOD SPECIMEN Performed By: #### 2 4344-4 ####[facility] LABORATORYCLIA [id number] [address] HCO3 (Bld) [Moles/Vol] 27.1 mmol/L Normal 24-28 [facility] Comment on above: Order Comment: Speci men Type: VENOUS BLOOD SPECIMEN Performed By: #### 2 4344-4 ####[facility] LABORATORYCLIA [id number] [address] Hematocrit (Bld) [Volume fraction] 36.2 % Low 39.0-51.0 [facility] Comment on above: Order Comment: Speci men Type: VENOUS BLOOD SPECIMEN Performed By: #### 2 4344-4 ####[facility] LABORATORYCLIA [id number] [address] Hemoglobin (Bld) [Mass/Vol] 11.8 g/dL Low 13.0-17.0 [facility] Comment on above: Order Comment: Speci men Type: VENOUS BLOOD SPECIMEN Performed By: #### 2 4344-4 ####[facility] LABORATORYCLIA [id number] [address] INHALED TIDAL VOLUME (ML) 530 Normal [facility] Comment on above: Order Comment: Speci men Type: VENOUS BLOOD SPECIMEN Performed By: #### 2 4344-4 ####[facility] LABORATORYCLIA [id number] [place] [address] [facility] [place] Methemoglobin (Bld) [Mass fraction] % Normal 0.0-1.5 [facility] Comment on above: Order Comment: Speci men Type: VENOUS BLOOD SPECIMEN Performed By: #### 2 4344-4 ####[facility] LABORATORYCLIA [id number] [place] [address] [facility] [place] O2 THERAPY Ventilator Normal [facility] Comment on above: Order Comment: Speci men Type: VENOUS BLOOD SPECIMEN Performed By: #### 2 4344-4 ####[facility] LABORATORYCLIA [id number] [place], [place] [id number] [place] [address] [place] Oxygen (BldV) [Partial pressure] 69 mm[Hg] High 35-45 [facility] Comment on above: Order Comment: Speci men Type: VENOUS BLOOD SPECIMEN Performed By: #### 2 4344-4 ####[facility] LABORATORYCLIA [id number] [place], [place] [address] [place] [address] [place] Oxygen adjusted to patient's actual temperature (BldV) [Partial pressure] 68.8 mmHg High 35-45 [facility] Comment on above: Order Comment: Speci men Type: VENOUS BLOOD SPECIMEN Performed By: #### 2 4344-4 ####[facility]ORATORYCLIA [id number] [place], [place] [id number] [place] [address] [place] Oxygen saturation in Blood 92.4 % High 60-85 [facility] Comment on above: Order Comment: Speci men Type: VENOUS BLOOD SPECIMEN Performed By: #### 2 4344-4 ####[facility]ORATORYCLIA [id number] [place], [place] [id number] [place] [address] [place] Oxyhemoglobin (BldV) [Mass fraction] 90 % High 60-85 [facility] Comment on above: Order Comment: Speci men Type: VENOUS BLOOD SPECIMEN Performed By: #### 2 4344-4 ####[facility]ORATORYCLIA [id number] [address] PEEP/CPAP 8 cmH2O Normal [facility] Comment on above: Order Comment: Speci men Type: VENOUS BLOOD SPECIMEN Performed By: #### 2 4344-4 ####[facility]ORATORYCLIA [id number] [address] pH (BldV) 7.35 [pH] Normal 7.32-7.42 [facility] Comment on above: Order Comment: Speci men Type: VENOUS BLOOD SPECIMEN Performed By: #### 2 4344-4 ####[facility]ORATORYCLIA [id number] [address] pH adjusted to patient's actual temperature (BldV) 7.35 Normal 7.32-7.42 [facility] Comment on above: Order Comment: Speci men Type: VENOUS BLOOD SPECIMEN Performed By: #### 2 4344-4 ####[facility]ORATORYCLIA [id number] [address] Potassium [Moles/Vol] 3.6 mmol/L Normal 3.5-5.0 [facility] Comment on above: Order Comment: Speci men Type: VENOUS BLOOD SPECIMEN Performed By: #### 2 4344-4 ####[facility]ORATORYCLIA [id number] [address] SET VENTILATOR RESPIRATORY RATE (BPM) 18 BPM Normal [facility] Comment on above: Order Comment: Speci men Type: VENOUS BLOOD SPECIMEN Performed By: #### 2 4344-4 ####[facility] LABORATORYCLIA [id number] [address] Sodium [Moles/Vol] 141 mmol/L Normal 136-144 [facility] Comment on above: Order Comment: Speci men Type: VENOUS BLOOD SPECIMEN Performed By: #### 2 4344-4 ####[facility]ORATORYCLIA [id number] [address] HIV 1+2 Ab IA Qlon 01-28-202 2 HIV 1 and 2 Ab IA.rapid Nom Normal [facility] Comment on above: Order Comment: Speci men Type: BLOOD SPECIMEN Result Comment: Test not indicated. Performed By: #### 3 1201-7, TOXMG ####[facility] LABORATORYCLIA [id number] [place] [address] [place] HIV 1+2 Ab+HIV1 [...] diagnoses. Performed By: #### 3 1201-7, TOXMG ####[facility] LABORATORYCLIA [id number] [address] HIVINT Normal [facility] Comment on above: Order Comment: Speci men Type: BLOOD SPECIMEN Result Comment: No e vidence of HIV-1 or HIV-2 infection. Should recent infection be suspected, repeat testing may be considered 2-3 weeks after this draw. Performed By: #### 3 1201-7, TOXMG ####[facility] LABORATORYCLIA [id number] [address] [place] Magnesium SerPl-mCncon 06-03 Magnesium [Mass/Vol] 1.9 mg/dL Normal 1.7-2.3 [facility] Comment on above: Order Comment: Speci men Type: BLOOD SPECIMEN Performed By: #### 1 9123-9, 2777-1, 20202-2 ####[facility] LABORATORYCLIA [id number] [place] [address] [place] NUTRITIONon 06-03-2021 NUTRITION Normal [facility] Phosphate SerPl-mCncon 06-03 Phosphate [Mass/Vol] 1.9 mg/dL Low 2.7-4.8 [facility] Comment on above: Order Comment: Speci men Type: BLOOD SPECIMEN Performed By: #### 1 9123-9, 2777-1, 52465-7 ####[facility] LABORATORYCLIA [id number] [address] TOXOPLASMOSIS IGM AND IGG AB on [...] IU/mL Performed By: #### 3 1201-7, TOXMG ####[facility] LABORATORYCLIA [id number] [address] TOXO IGM QUAL Negative Normal Negative [facility] Comment on above: Order Comment: Speci men Type: BLOOD SPECIMEN Result Comment: No s erological evidence of recent exposure to Toxoplasma gondii.Negative <0.9 IndexEquivocal 0.9-0.99 IndexPositive >=1.0 Index Performed By: #### 3 1201-7, TOXMG ####[facility] LABORATORYCLIA [id number] [address] [place] US DVT LOWER BILon US DVT LOWER RAINER Normal [facility] XR CHEST 1V FRONTALon 2021 XR CHEST 1V FRONTAL Normal [facility] ARTERIAL BLOOD GASESon 06-02 Base excess Calc (Bld) [Moles/Vol] 2 mmol/L Normal 0-2 [facility] Comment on above: Order Comment: Speci men Type: ARTERIAL BLOOD SPECIMEN Performed By: #### A LLBG ####[facility] LABORATORYCLIA [id number] [address] Body temperature 99.32 [degF] Normal [facility] Comment on above: Order Comment: Speci men Type: ARTERIAL BLOOD SPECIMEN Performed By: #### A LLBG ####[facility]ORATORYCLIA [id number] [address] CALCIUM IONIZED, PH CORRECTED 1.15 mmol/L Normal 1.08-1.30 [facility] Comment on above: Order Comment: Speci men Type: ARTERIAL BLOOD SPECIMEN Performed By: #### A LLBG ####[facility] LABORATORYCLIA [id number] [address] Calcium.ionized (BldV) [Mass/Vol] 1.13 mmol/L Normal 1.08-1.30 [facility] Comment on above: Order Comment: Speci men Type: ARTERIAL BLOOD SPECIMEN Performed By: #### A LLBG ####[facility]ORATORYCL[facility] [id number] [address] Carboxyhemoglobin (BldA) [Mass fraction] 1.4 % Normal 0.0-2.0 [facility] Comment on above: Order Comment: Speci men Type: ARTERIAL BLOOD SPECIMEN Result Comment: Carb oxyhemoglobin Reference Range for Smokers: 2.0-8.0% Performed By: #### A LLBG ####[facility]ORATORYCLIA [id number] [address] CO2 (Bld) [Partial pressure] 39 mm Hg Normal 36-46 [facility] Comment on above: Order Comment: Speci men Type: ARTERIAL BLOOD SPECIMEN Performed By: #### A LLBG ####[facility]ORYCLIA [id number] [address] [place] CO2 [Moles/Vol] 23.4 mmol/L Normal 22-28 [facility] Comment on above: Order Comment: Speci men Type: ARTERIAL BLOOD SPECIMEN Performed By: #### A LLBG ####[facility]ORYCLIA [id number] [address] CO2 adjusted to patient's actual temperature (Bld) [Partial pressure] 40 mmHg Normal 36-46 [facility] Comment on above: Order Comment: Speci men Type: ARTERIAL BLOOD SPECIMEN Performed By: #### A LLBG ####[facility] [id number] [address] Glucose [Mass/Vol] 156 mg/dL High 60-105 [facility] Comment on above: Order Comment: Speci men Type: ARTERIAL BLOOD SPECIMEN Performed By: #### A LLBG ####[facility]ORYCLIA [id number] [address] HCO3 (Bld) [Moles/Vol] 26 mmol/L Normal 22-26 [facility] Comment on above: Order Comment: Speci men Type: ARTERIAL BLOOD SPECIMEN Performed By: #### A LLBG ####[facility]ORYCLIA [id number] [address] Hematocrit (Bld) [Volume fraction] 33.9 % Low 39.0-51.0 [facility] Comment on above: Order Comment: Speci men Type: ARTERIAL BLOOD SPECIMEN Performed By: #### A LLBG ####[facility]ORYCLIA [id number] [address] OF [facility] Hemoglobin (Bld) [Mass/Vol] 11.0 g/dL Low 13.0-17.0 [facility] Comment on above: Order Comment: Speci men Type: ARTERIAL BLOOD SPECIMEN Performed By: #### A LLBG ####[facility]ORYCLIA [id number] [address] Methemoglobin (Bld) [Mass fraction] % Normal 0.0-1.5 [facility] Comment on above: Order Comment: Speci men Type: ARTERIAL BLOOD SPECIMEN Performed By: #### A LLBG ####[facility]CLIA [id number] [address] O2 THERAPY Ventilator Normal [facility] Comment on above: Order Comment: Speci men Type: ARTERIAL BLOOD SPECIMEN Performed By: #### A LLBG ####[facility]ORYCLIA [id number] [place], [place] [id number] [place] [address] Oxygen (Bld) [Partial pressure] 70 mm Hg Low 85-95 [facility] Comment on above: Order Comment: Speci men Type: ARTERIAL BLOOD SPECIMEN Performed By: #### A LLBG ####[facility]IA [id number] [address] Oxygen adjusted to patient's actual temperature (Bld) [Partial pressure] 72.2 mmHg Low 85-95 [facility] Comment on above: Order Comment: Speci men Type: ARTERIAL BLOOD SPECIMEN Performed By: #### A LLBG ####[facility]ATORYCLIA [id number] [address] OXYGEN SATURATION, ARTERIAL 96 % Normal 95-98 [facility] Comment on above: Order Comment: Speci men Type: ARTERIAL BLOOD SPECIMEN Performed By: #### A LLBG ####[facility]ORYCLIA [id number] [address] Oxyhemoglobin (BldA) [Mass fraction] 94 % Low 95-98 [facility] Comment on above: Order Comment: Speci men Type: ARTERIAL BLOOD SPECIMEN Performed By: #### A LLBG ####[facility]ORYCLIA [id number] [address] [place] pH (Bld) 7.43 [pH] Normal 7.35-7.45 [facility] Comment on above: Order Comment: Speci men Type: ARTERIAL BLOOD SPECIMEN Performed By: #### A LLBG ####[facility]ORYCLIA [id number] [address] pH adjusted to patient's actual temperature (Bld) 7.42 Normal 7.35-7.45 [facility] Comment on above: Order Comment: Speci men Type: ARTERIAL BLOOD SPECIMEN Performed By: #### A LLBG ####[facility]ORYCLIA [id number] [address] [place] Potassium [Moles/Vol] 2.6 mmol/L Low 3.5-5.0 [facility] Comment on above: Order Comment: Speci men Type: ARTERIAL BLOOD SPECIMEN Performed By: #### A LLBG ####[facility]ORYCLIA [id number] [address] STATES OF [facility] Sodium [Moles/Vol] 142 mmol/L Normal 136-144 [facility] Comment on above: Order Comment: Speci men Type: ARTERIAL BLOOD SPECIMEN Performed By: #### A LLBG ####[facility]ATORYCLIA [id number] [address] [place] Ammonia Plas-sCncon 06-02-19 22 Ammonia (P) [Moles/Vol] 20 umol/L Normal 16-60 [facility] Comment on above: Order Comment: Speci men Type: BLOOD SPECIMEN Performed By: #### 1 6362-6 ####[facility]ATORYCLIA [id number] [address] [place] Bacteria CSF Culton 06-02-19 22 Bacteria identified Cx Nom (CSF) CULTURE, CSF: No growth 14 days GRAM STAIN: No organisms seen Rare Polymorphonuclear leukocytes Gram stain performed on cytospun specimen. Normal [facility] Comment on above: Performed By: #### 6 06-4 ####[facility]ATORYCLIA [id number] [address] [place] Basic metabolic 2000 panelon 06-02-2021 Anion gap [Moles/Vol] 10 mmol/L Normal 9-18 [facility] Comment on above: Order Comment: Speci men Type: BLOOD SPECIMEN Performed By: #### 2 4321-2, , 2776-05 ####[facility]ATORYCLIA [id number] [address] STATES OF [facility] Calcium [Mass/Vol] 8.1 mg/dL Low 8.5-10.2 [facility] Comment on above: Order Comment: Speci men Type: BLOOD SPECIMEN Performed By: #### 2 4321-2, , 2776 ####[facility]ATORYCLIA [id number] [place], [place] [address] [place] [address] [place] Chloride [Moles/Vol] 108 mmol/L High 97-105 [facility] Comment on above: Order Comment: Speci men Type: BLOOD SPECIMEN Performed By: #### 2 4321-2, , 2776-05 ####[facility]ATORYCLIA [id number] [address] [place] CO2 [Moles/Vol] 24 mmol/L Normal 22-30 [facility] Comment on above: Order Comment: Speci men Type: BLOOD SPECIMEN Performed By: #### 2 1-2, , 2776-05 ####[facility]ATORYCLIA [id number] [address] [place] Creatinine [Mass/Vol] 0.78 mg/dL Normal 0.73-1.22 [facility] Comment on above: Order Comment: Speci men Type: BLOOD SPECIMEN Performed By: #### 2 1-2, , 2776-05 ####[facility]ATORYCLIA [id number] [address] [place] GFR/1.73 sq M.predicted [...] Performed By: #### 2 4321-2, , 2776-05 ####[facility]ORATORYCLIA [id number] [place] [address] [place] Glucose [Mass/Vol] 162 mg/dL High 74-99 [facility] Comment on above: Order Comment: Speci men Type: BLOOD SPECIMEN Result Comment: The [place] Diabetes Association (ADA) provides guidance for cutoff [...] Standards of Medical Care in Diabetes 2016, [place] [employer]. Diabetes Care. 2016.39(Suppl 1). Performed By: #### 2 1-2, , 2776-05 ####[facility]ATORYCLIA [id number] [address] [place] Potassium [Moles/Vol] 2.7 mmol/L Low 3.7-5.1 [facility] Comment on above: Order Comment: Speci men Type: BLOOD SPECIMEN Performed By: #### 2 1-2, , 2776-05 ####[facility]ATORYCLIA [id number] [address] [place] Sodium [Moles/Vol] 142 mmol/L Normal 136-144 [facility] Comment on above: Order Comment: Speci men Type: BLOOD SPECIMEN Performed By: #### 2 4321-2, , 2776-05 ####[facility]ATORYCLIA [id number] [address] [place] Urea nitrogen [Mass/Vol] 12 mg/dL Normal 9-24 [facility] Comment on above: Order Comment: Speci men Type: BLOOD SPECIMEN Performed By: #### 2 1-2, , 2776-05 ####[facility]ATORYCLIA [id number] [address] CBC panel Auto (Bld)on 06-02 Erythrocyte distribution width (RBC) [Ratio] 15.0 % Normal 11.5-15.0 [facility] Comment on above: Order Comment: Speci men Type: BLOOD SPECIMEN Performed By: #### 5 8410-2 ####[facility]ATORYCLIA [id number] [address] Hematocrit (Bld) [Volume fraction] 34.3 % Low 39.0-51.0 [facility] Comment on above: Order Comment: Speci men Type: BLOOD SPECIMEN Performed By: #### 5 8410-2 ####[facility]ATORYCLIA [id number] [address] Hemoglobin (Bld) [Mass/Vol] 10.3 g/dL Low 13.0-17.0 [facility] Comment on above: Order Comment: Speci men Type: BLOOD SPECIMEN Performed By: #### 5 8410-2 ####[facility]ATORYCLIA [id number] [address] MCH (RBC) [Entitic mass] 27.0 pg Normal 26.0-34.0 [facility] Comment on above: Order Comment: Speci men Type: BLOOD SPECIMEN Performed By: #### 5 8410-2 ####[facility]ATORYCLIA [id number] [address] MCHC (RBC) [Mass/Vol] 30.0 g/dL Low 30.5-36.0 [facility] Comment on above: Order Comment: Speci men Type: BLOOD SPECIMEN Performed By: #### 5 8410-2 ####[facility]ATORYCLIA [id number] [address] MCV (RBC) [Entitic vol] 90.0 fL Normal 80.0-100.0 [facility] Comment on above: Order Comment: Speci men Type: BLOOD SPECIMEN Performed By: #### 5 8410-2 ####[facility]ATORYCLIA [id number] [address] Nucleated RBC (Bld) [#/Vol] 10*3/uL Normal <0.01 [facility] Comment on above: Order Comment: Speci men Type: BLOOD SPECIMEN Performed By: #### 5 8410-2 ####[facility]ATORYCLIA [id number] [address] Platelet mean volume (Bld) [Entitic vol] 10.2 fL Normal 9.0-12.7 [facility] Comment on above: Order Comment: Speci men Type: BLOOD SPECIMEN Performed By: #### 5 8410-2 ####[facility]ATORYCLIA [id number] [address] Platelets (Bld) [#/Vol] 194 10*3/uL Normal 150-400 [facility] Comment on above: Order Comment: Speci men Type: BLOOD SPECIMEN Performed By: #### 5 8410-2 ####[facility]ATORYCLIA [id number] [address] RBC (Bld) [#/Vol] 3.81 10*6/uL Low 4.20-6.00 [facility] Comment on above: Order Comment: Speci men Type: BLOOD SPECIMEN Performed By: #### 5 8410-2 ####[facility]ATORYCLIA [id number] [address] WBC (Bld) [#/Vol] 9.22 10*3/uL Normal 3.70-11.00 [facility] Comment on above: Order Comment: Speci men Type: BLOOD SPECIMEN Performed By: #### 5 8410-2 ####[facility]ATORYCLIA [id number] [address] CONSULT PROGon 06-02-2021 CONSULT PROG Normal [facility] CSF MANUAL DIFFon 06-02-2021 DIF TTL, CSF 25 cells counted Normal [facility] Comment on above: Order Comment: Speci men Type: CEREBROSPINAL FLUID Performed By: #### 3 4563-7, [id number], [id number] ####[facility]ORYCLIA [id number] [address] [place] LYMPH%, CSF 4 % Low 50-90 [facility] Comment on above: Order Comment: Speci men Type: CEREBROSPINAL FLUID Performed By: #### 3 4563-7, [id number], [id number] ####[facility]ORYCLIA [id number] [address] [place] MACRO%, CSF 4 % High <1 [facility] Comment on above: Order Comment: Speci men Type: CEREBROSPINAL FLUID Performed By: #### 3 4563-7, [id number], [id number] ####[facility]ORYCLIA [id number] [address] [place] MONO%, CSF 20 % Normal 10-50 [facility] Comment on above: Order Comment: Speci men Type: CEREBROSPINAL FLUID Performed By: #### 3 4563-7, [id number], [id number] ####[facility]ORYCLIA [id number] [address] [place] NEUT%, CSF 72 % High 0-3 [facility] Comment on above: Order Comment: Speci men Type: CEREBROSPINAL FLUID Performed By: #### 3 4563-7, [id number], [id number] ####[facility]ORYCLIA [id number] [address] CSF PATHOLOGIST INTERP (LAB REFLEX ORDER-NO BILL)on 06-02-2021 CSF STAFF REVIEW Negative Normal [facility] Comment on above: Order Comment: Speci men Type: CEREBROSPINAL FLUID Performed By: #### 3 4563-7, [id number], [id number] ####[facility]ORYCLIA [id number] [address] Pathologist name Reviewed by Amador Stevens MD [facility] Comment on above: Order Comment: Speci men Type: CEREBROSPINAL FLUID Performed By: #### 3 4563-7, [id number], [id number] ####[facility]ORYCLIA [id number] [address] Cell count panel (CSF)on Clarity (CSF) Clear Normal Clear [facility] Comment on above: Order Comment: Speci men Type: CEREBROSPINAL FLUID Performed By: #### 3 4563-7, [id number], [id number] ####[facility]ORYCLIA [id number] [address] Clarity (Unsp spec) Not Indicated Normal Clear [facility] Comment on above: Order Comment: Speci men Type: CEREBROSPINAL FLUID Performed By: #### 3 4563-7, [id number], [id number] ####[facility]ORYCLIA [id number] [address] Color (CSF) Colorless Normal Colorless [facility] Comment on above: Order Comment: Speci men Type: CEREBROSPINAL FLUID Performed By: #### 3 4563-7, [id number], [id number] ####[facility]ATORYCLIA [id number] [address] Color (Spun CSF) Not Indicated Normal Colorless [facility] Comment on above: Order Comment: Speci men Type: CEREBROSPINAL FLUID Performed By: #### 3 4563-7, [id number], [id number] ####[facility]ORYCLIA [id number] [address] CSF TUBE NUMBER Sterile Container Normal [facility] Comment on above: Order Comment: Speci men Type: CEREBROSPINAL FLUID Performed By: #### 3 4563-7, [id number], [id number] ####[facility]ORYCLIA [id number] [address] RBC Manual cnt (CSF) [#/Vol] 117 cells/uL High 0-5 [facility] Comment on above: Order Comment: Speci men Type: CEREBROSPINAL FLUID Performed By: #### 3 4563-7, [id number], [id number] ####[facility]ATORYCLIA [id number] [address] WBC Manual cnt (CSF) [#/Vol] 1 cells/uL Normal 0-5 [facility] Comment on above: Order Comment: Speci men Type: CEREBROSPINAL FLUID Performed By: #### 3 4563-7, [id number], [id number] ####[facility]ATORYCLIA [id number] [address] Glucose CSF-mCncon 2 Glucose (CSF) [Mass/Vol] [...] Glucose HK (GLUC3) [package insert V 12.0 Finnish]. [employer], [place], [place]. September 2015. 2. Michelle Moore, Loki HGarfield (2015). Chapter 7: Glucose and Lactate. F. Irina rose al.(eds.), Cerebrospinal Fluid in Clinical Neurology. Hickman: [employer]. Performed By: #### 2 342-4 ####[facility]ATORYCLIA [id number] [address] HEPATIC FUNCTION PNLon 06-02 Albumin [Mass/Vol] 3.2 g/dL Low 3.9-4.9 [facility] Comment on above: Order Comment: Speci men Type: BLOOD SPECIMEN Performed By: #### [place], [address]-9 ####[facility]ATORYCLIA [id number] [address] ALP [Catalytic activity/Vol] 67 U/L Normal 38-113 [facility] Comment on above: Order Comment: Speci men Type: BLOOD SPECIMEN Performed By: #### [place] FP, 52444-6 ####[facility]ATORYCLIA [id number] [address] [place] ALT With P-5'-P [Catalytic activity/Vol] 16 U/L Normal 10-54 [facility] Comment on above: Order Comment: Speci men Type: BLOOD SPECIMEN Performed By: #### [place], [address]-1 ####[facility]ORYCLIA [id number] [address] AST With P-5'-P [Catalytic activity/Vol] 25 U/L Normal 14-40 [facility] Comment on above: Order Comment: Speci men Type: BLOOD SPECIMEN Performed By: #### [place], [address]-9 ####[facility]ORYCLIA [id number] [address] Bilirubin [Mass/Vol] 0.2 mg/dL Normal 0.2-1.3 [facility] Comment on above: Order Comment: Speci men Type: BLOOD SPECIMEN Performed By: #### [place] KATHIE, 11669-8 ####[facility]ORYCLIA [id number] [address] Bilirubin.conjugated [Mass/Vol] mg/dL Normal <0.2 [facility] Comment on above: Order Comment: Speci men Type: BLOOD SPECIMEN Performed By: #### [place], [address]-6 ####[facility]ORYCLIA [id number] [address] Protein [Mass/Vol] 5.8 g/dL Low 6.3-8.0 [facility] Comment on above: Order Comment: Speci men Type: BLOOD SPECIMEN Performed By: #### [place], [address]-7 ####[facility]ORYCLIA [id number] [address] MRI BRAIN WO/W IVCONon 06-02 MRI BRAIN WO/W IVCON Normal [facility] Magnesium SerPl-mCncon 06-02 Magnesium [Mass/Vol] 2.0 mg/dL Normal 1.7-2.3 [facility] Comment on above: Order Comment: Speci men Type: BLOOD SPECIMEN Performed By: #### 2 4321-2, 53906-7, 2777-1 ####[facility]ATORYCLIA [id number] [address] [facility] Natriuretic peptide.B prohormone N-Terminal [Mass/Vol] 296 pg/mL High <125 [facility] Comment on above: Order Comment: Speci men Type: BLOOD SPECIMEN Performed By: #### H FP, 90616-0 ####[facility]ATORYCLIA [id number] [address] OF [facility] POTASSIUM BLDon 06-02-2021 Potassium [Moles/Vol] 3.2 mmol/L Low 3.7-5.1 [facility] Comment on above: Order Comment: Speci men Type: BLOOD SPECIMEN Performed By: #### K 1 ####[facility]ATORYCLIA [id number] [address] Phosphate [facility] 06-02 Phosphate [Mass/Vol] 2.1 mg/dL Low 2.7-4.8 [facility] Comment on above: Order Comment: Speci men Type: BLOOD SPECIMEN Performed By: #### 2 4321-2, 87922-2, 2776-05 ####[facility]ATORYCLIA [id number] [address] OF [facility] Vancomycin random [Mass/Vol] on 06-02-2021 Vancomycin [Mass/Vol] 18.8 ug/mL Normal 10.0-20.0 [facility] Comment on above: Order Comment: Speci men Type: BLOOD SPECIMEN Result Comment: Refe rence ranges and high/low indicator flags are provided as general guidelines only. The treating physician must determine appropriate target levels/dosing based on the specific clinical situation. Performed By: #### 4 091-5 ####[facility]ATORYCLIA [id number] [address] OF [facility] ALLIED HEALTHon 06-01-2021 ALLIED HEALTH Normal [facility] ALLIED HEALTH Normal [facility] ALLIED HEALTH Normal [facility] ARTERIAL BLOOD GASESon 06-01 Base excess Calc (Bld) [Moles/Vol] 1 mmol/L Normal 0-2 [facility] Comment on above: Order Comment: Speci men Type: ARTERIAL BLOOD SPECIMEN Performed By: #### A LLBG ####[facility]ATORYCLIA [id number] [address] Body temperature 97.52 [degF] Normal [facility] Comment on above: Order Comment: Speci men Type: ARTERIAL BLOOD SPECIMEN Performed By: #### A LLBG ####[facility]ATORYCLIA [id number] [address] CALCIUM IONIZED, PH CORRECTED 1.13 mmol/L Normal 1.08-1.30 [facility] Comment on above: Order Comment: Speci men Type: ARTERIAL BLOOD SPECIMEN Performed By: #### A LLBG ####[facility]ATORYCLIA [id number] [address] STATES OF [facility] Calcium.ionized (BldV) [Mass/Vol] 1.12 mmol/L Normal 1.08-1.30 [facility] Comment on above: Order Comment: Speci men Type: ARTERIAL BLOOD SPECIMEN Performed By: #### A LLBG ####[facility]ATORYCLIA [id number] [address] OF [facility] Carboxyhemoglobin (BldA) [Mass fraction] 1.6 % Normal 0.0-2.0 [facility] Comment on above: Order Comment: Speci men Type: ARTERIAL BLOOD SPECIMEN Result Comment: Carb oxyhemoglobin Reference Range for Smokers: 2.0-8.0% Performed By: #### A LLBG ####[facility]ATORYCLIA [id number] [address] CO2 (Bld) [Partial pressure] 41 mm Hg Normal 36-46 [facility] Comment on above: Order Comment: Speci men Type: ARTERIAL BLOOD SPECIMEN Performed By: #### A LLBG ####[facility]ORYCLIA [id number] [address] CO2 [Moles/Vol] 23.0 mmol/L Normal 22-28 [facility] Comment on above: Order Comment: Speci men Type: ARTERIAL BLOOD SPECIMEN Performed By: #### A LLBG ####[facility]ORYCLIA [id number] [address] CO2 adjusted to patient's actual temperature (Bld) [Partial pressure] 40 mmHg Normal 36-46 [facility] Comment on above: Order Comment: Speci men Type: ARTERIAL BLOOD SPECIMEN Performed By: #### A LLBG ####[facility]ORYCLIA [id number] [address] FIO2 40 % Normal [facility] Comment on above: Order Comment: Speci men Type: ARTERIAL BLOOD SPECIMEN Performed By: #### A LLBG ####[facility]ORYCLIA [id number] [address] Glucose [Mass/Vol] 127 mg/dL High 60-105 [facility] Comment on above: Order Comment: Speci men Type: ARTERIAL BLOOD SPECIMEN Performed By: #### A LLBG ####[facility]ORYCLIA [id number] [address] HCO3 (Bld) [Moles/Vol] 25 mmol/L Normal 22-26 [facility] Comment on above: Order Comment: Speci men Type: ARTERIAL BLOOD SPECIMEN Performed By: #### A LLBG ####[facility]ORYCLIA [id number] [address] Hematocrit (Bld) [Volume fraction] 33.7 % Low 39.0-51.0 [facility] Comment on above: Order Comment: Speci men Type: ARTERIAL BLOOD SPECIMEN Performed By: #### A LLBG ####[facility]ORYCLIA [id number] [address] [place] Hemoglobin (Bld) [Mass/Vol] 10.9 g/dL Low 13.0-17.0 [facility] Comment on above: Order Comment: Speci men Type: ARTERIAL BLOOD SPECIMEN Performed By: #### A LLBG ####[facility]ORYCLIA [id number] [address] INHALED TIDAL VOLUME (ML) 500 Normal [facility] Comment on above: Order Comment: Speci men Type: ARTERIAL BLOOD SPECIMEN Performed By: #### A LLBG ####[facility]ORYCLIA [id number] [address] INVASIVE VENTILATOR MODE PRVC=Pressure Regulated Volume Control Normal [facility] Comment on above: Order Comment: Speci men Type: ARTERIAL BLOOD SPECIMEN Performed By: #### A LLBG ####[facility]ORYCLIA [id number] [address] Methemoglobin (Bld) [Mass fraction] % Normal 0.0-1.5 [facility] Comment on above: Order Comment: Speci men Type: ARTERIAL BLOOD SPECIMEN Performed By: #### A LLBG ####[facility]ORYCLIA [id number] [address] [place] O2 THERAPY Ventilator Normal [facility] Comment on above: Order Comment: Speci men Type: ARTERIAL BLOOD SPECIMEN Performed By: #### A LLBG ####[facility]ORYCLIA [id number] [address] [place] Oxygen (Bld) [Partial pressure] 64 mm Hg Low 85-95 [facility] Comment on above: Order Comment: Speci men Type: ARTERIAL BLOOD SPECIMEN Performed By: #### A LLBG ####[facility]ORYCLIA [id number] [address] Oxygen adjusted to patient's actual temperature (Bld) [Partial pressure] 61.8 mmHg Low 85-95 [facility] Comment on above: Order Comment: Speci men Type: ARTERIAL BLOOD SPECIMEN Performed By: #### A LLBG ####[facility]ORYCLIA [id number] [place] [address] OXYGEN SATURATION, ARTERIAL 94 % Low 95-98 [facility] Comment on above: Order Comment: Speci men Type: ARTERIAL BLOOD SPECIMEN Performed By: #### A LLBG ####[facility]ORYCLIA [id number] [address] Oxyhemoglobin (BldA) [Mass fraction] 92 % Low 95-98 [facility] Comment on above: Order Comment: Speci men Type: ARTERIAL BLOOD SPECIMEN Performed By: #### A LLBG ####[facility]ORYCLIA [id number] [address] PEEP/CPAP 5 cmH2O Normal [facility] Comment on above: Order Comment: Speci men Type: ARTERIAL BLOOD SPECIMEN Performed By: #### A LLBG ####[facility]ORATORYCLIA [id number] [address] pH (Bld) 7.40 [pH] Normal 7.35-7.45 [facility] Comment on above: Order Comment: Speci men Type: ARTERIAL BLOOD SPECIMEN Performed By: #### A LLBG ####[facility] LABORATORYCLIA [id number] [address] pH adjusted to patient's actual temperature (Bld) 7.41 Normal 7.35-7.45 [facility] Comment on above: Order Comment: Speci men Type: ARTERIAL BLOOD SPECIMEN Performed By: #### A LLBG ####[facility]ORATORYCLIA [id number] [address] Potassium [Moles/Vol] 3.1 mmol/L Low 3.5-5.0 [facility] Comment on above: Order Comment: Speci men Type: ARTERIAL BLOOD SPECIMEN Performed By: #### A LLBG ####[facility]ORATORYCLIA [id number] [address] SET VENTILATOR RESPIRATORY RATE (BPM) 18 BPM Normal [facility] Comment on above: Order Comment: Speci men Type: ARTERIAL BLOOD SPECIMEN Performed By: #### A LLBG ####[facility]ORATORYCLIA [id number] [address] Sodium [Moles/Vol] 141 mmol/L Normal 136-144 [facility] Comment on above: Order Comment: Speci men Type: ARTERIAL BLOOD SPECIMEN Performed By: #### A LLBG ####[facility]ORATORYCLIA [id number] [address] BASE DEFICIT, ARTERIAL -1.0 mmol/L Normal -2-0 [facility] Comment on above: Order Comment: Speci men Type: ARTERIAL BLOOD SPECIMEN Performed By: #### A LLBG ####[facility] LABORATORYCLIA [id number] [address] Body temperature 98.24 [degF] Normal [facility] Comment on above: Order Comment: Speci men Type: ARTERIAL BLOOD SPECIMEN Performed By: #### A LLBG ####[facility] LABORATORYCLIA [id number] [address] CALCIUM IONIZED, PH CORRECTED 1.08 mmol/L Normal 1.08-1.30 [facility] Comment on above: Order Comment: Speci men Type: ARTERIAL BLOOD SPECIMEN Performed By: #### A LLBG ####[facility] LABORATORYCLIA [id number] [address] Calcium.ionized (BldV) [Mass/Vol] 1.15 mmol/L Normal 1.08-1.30 [facility] Comment on above: Order Comment: Speci men Type: ARTERIAL BLOOD SPECIMEN Performed By: #### A LLBG ####[facility]ORATORYCLIA [id number] [address] Carboxyhemoglobin (BldA) [Mass fraction] 1.4 % Normal 0.0-2.0 [facility] Comment on above: Order Comment: Speci men Type: ARTERIAL BLOOD SPECIMEN Result Comment: Carb oxyhemoglobin Reference Range for Smokers: 2.0-8.0% Performed By: #### A LLBG ####[facility]ORATORYCLIA [id number] [place], [place] [id number] [place] [address] CO2 (Bld) [Partial pressure] 59 mm Hg High 36-46 [facility] Comment on above: Order Comment: Speci men Type: ARTERIAL BLOOD SPECIMEN Performed By: #### A LLBG ####[facility]ORATORYCLIA [id number] [place], [place] [id number] [place] [address] [place] CO2 [Moles/Vol] 24.5 mmol/L Normal 22-28 [facility] Comment on above: Order Comment: Speci men Type: ARTERIAL BLOOD SPECIMEN Performed By: #### A LLBG ####[facility]ORYCLIA [id number] [address] CO2 adjusted to patient's actual temperature (Bld) [Partial pressure] 58 mmHg High 36-46 [facility] Comment on above: Order Comment: Speci men Type: ARTERIAL BLOOD SPECIMEN Performed By: #### A LLBG ####[facility]ATORYCLIA [id number] [address] [place] FIO2 40 % Normal [facility] Comment on above: Order Comment: Speci men Type: ARTERIAL BLOOD SPECIMEN Performed By: #### A LLBG ####[facility]ATORYCLIA [id number] [address] Glucose [Mass/Vol] 128 mg/dL High 60-105 [facility] Comment on above: Order Comment: Speci men Type: ARTERIAL BLOOD SPECIMEN Performed By: #### A LLBG ####[facility]ORYCLIA [id number] [address] HCO3 (Bld) [Moles/Vol] 26 mmol/L Normal 22-26 [facility] Comment on above: Order Comment: Speci men Type: ARTERIAL BLOOD SPECIMEN Performed By: #### A LLBG ####[facility]ATORYCLIA [id number] [address] [place] Hematocrit (Bld) [Volume fraction] 35.6 % Low 39.0-51.0 [facility] Comment on above: Order Comment: Speci men Type: ARTERIAL BLOOD SPECIMEN Performed By: #### A LLBG ####[facility]ATORYCLIA [id number] [address] Hemoglobin (Bld) [Mass/Vol] 11.5 g/dL Low 13.0-17.0 [facility] Comment on above: Order Comment: Speci men Type: ARTERIAL BLOOD SPECIMEN Performed By: #### A LLBG ####[facility]ORATORYCLIA [id number] [address] [place] INHALED TIDAL VOLUME (ML) 500 Normal [facility] Comment on above: Order Comment: Speci men Type: ARTERIAL BLOOD SPECIMEN Performed By: #### A LLBG ####[facility]ATORYCLIA [id number] [address] INVASIVE VENTILATOR MODE PRVC=Pressure Regulated Volume Control [facility] Comment on above: Order Comment: Speci men Type: ARTERIAL BLOOD SPECIMEN Performed By: #### A LLBG ####[facility]ORYCLIA [id number] [address] OF [facility] Methemoglobin (Bld) [Mass fraction] % Normal 0.0-1.5 [facility] Comment on above: Order Comment: Speci men Type: ARTERIAL BLOOD SPECIMEN Performed By: #### A LLBG ####[facility]ATORYCLIA [id number] [address] O2 THERAPY Ventilator Normal [facility] Comment on above: Order Comment: Speci men Type: ARTERIAL BLOOD SPECIMEN Performed By: #### A LLBG ####[facility]ATORYCLIA [id number] [address] Oxygen (Bld) [Partial pressure] 88 mm Hg Normal 85-95 [facility] Comment on above: Order Comment: Speci men Type: ARTERIAL BLOOD SPECIMEN Performed By: #### A LLBG ####[facility]ATORYCLIA [id number] [address] Oxygen adjusted to patient's actual temperature (Bld) [Partial pressure] 86.5 mmHg Normal 85-95 [facility] Comment on above: Order Comment: Speci men Type: ARTERIAL BLOOD SPECIMEN Performed By: #### A LLBG ####[facility]ATORYCLIA [id number] [address] OXYGEN SATURATION, ARTERIAL 95 % Normal 95-98 [facility] Comment on above: Order Comment: Speci men Type: ARTERIAL BLOOD SPECIMEN Performed By: #### A LLBG ####[facility]ATORYCLIA [id number] [address] Oxyhemoglobin (BldA) [Mass fraction] 93 % Low 95-98 [facility] Comment on above: Order Comment: Speci men Type: ARTERIAL BLOOD SPECIMEN Performed By: #### A LLBG ####[facility]ORATORYCLIA [id number] [address] PEEP/CPAP 5 cmH2O Normal [facility] Comment on above: Order Comment: Speci men Type: ARTERIAL BLOOD SPECIMEN Performed By: #### A LLBG ####[facility]ORATORYCLIA [id number] [address] OF [facility] pH (Bld) 7.27 [pH] Low 7.35-7.45 [facility] Comment on above: Order Comment: Speci men Type: ARTERIAL BLOOD SPECIMEN Performed By: #### A LLBG ####[facility]ATORYCLIA [id number] [address] pH adjusted to patient's actual temperature (Bld) 7.28 Low 7.35-7.45 [facility] Comment on above: Order Comment: Speci men Type: ARTERIAL BLOOD SPECIMEN Performed By: #### A LLBG ####[facility]ATORYCLIA [id number] [address] Potassium [Moles/Vol] 3.3 mmol/L Low 3.5-5.0 [facility] Comment on above: Order Comment: Speci men Type: ARTERIAL BLOOD SPECIMEN Performed By: #### A LLBG ####[facility] LABORATORYCLIA [id number] [address] SET VENTILATOR RESPIRATORY RATE (BPM) 14 BPM Normal [facility] Comment on above: Order Comment: Speci men Type: ARTERIAL BLOOD SPECIMEN Performed By: #### A LLBG ####[facility] LABORATORYCLIA [id number] [address] Sodium [Moles/Vol] 141 mmol/L Normal 136-144 [facility] Comment on above: Order Comment: Speci men Type: ARTERIAL BLOOD SPECIMEN Performed By: #### A LLBG ####[facility] LABORATORYCLIA [id number] [address] Bacteria CSF Culton 06-01-19 22 Bacteria identified Cx Nom (CSF) CULTURE, CSF: No growth 14 days GRAM STAIN: No organisms seen Rare Polymorphonuclear leukocytes Moderate Red Blood Cells Gram stain performed on cytospun specimen. Normal [facility] Comment on above: Performed By: #### 6 06-4 ####[facility] LABORATORYCLIA [id number] [address] Bacteria Spec Resp Culton Bacteria identified Respiratory culture Nom (Unsp spec) CULTURE, RESPIRATORY: No growth 2 days GRAM STAIN: No organisms seen No Polymorphonuclear Leukocytes Normal [facility] Comment on above: Performed By: #### 3 2355-0 ####[facility] LABORATORYCLIA [id number] [address] Basic metabolic 2000 panelon 06-01-2021 Anion gap [Moles/Vol] 8 mmol/L Low 9-18 [facility] Comment on above: Order Comment: Speci men Type: BLOOD SPECIMEN Performed By: #### 2 4321-2, 96147-8, 2777-1 ####[facility]ORATORYCLIA [id number] [address] [place] Calcium [Mass/Vol] 7.8 mg/dL Low 8.5-10.2 [facility] Comment on above: Order Comment: Speci men Type: BLOOD SPECIMEN Performed By: #### 2 4321-2, , 2776-05 ####[facility] LABORATORYCLIA [id number] [address] STATES [facility] Chloride [Moles/Vol] 109 mmol/L High 97-105 [facility] Comment on above: Order Comment: Speci men Type: BLOOD SPECIMEN Performed By: #### 2 4321-2, , 2776-05 ####[facility] LABORATORYCLIA [id number] [address] [place] CO2 [Moles/Vol] 26 mmol/L Normal 22-30 [facility] Comment on above: Order Comment: Speci men Type: BLOOD SPECIMEN Performed By: #### 2 4321-2, , 2776-05 ####[facility] LABORATORYCLIA [id number] [address] STATES OF [facility] Creatinine [Mass/Vol] 0.82 mg/dL Normal 0.73-1.22 [facility] Comment on above: Order Comment: Speci men Type: BLOOD SPECIMEN Performed By: #### 2 4321-2, , 2776-05 ####[facility] LABORATORYCLIA [id number] [address] [place] GFR/1.73 sq M.predicted [...] Performed By: #### 2 4320-2, , 2776-05 ####[facility] LABORATORYCLIA [id number] [place] [address] [place] Glucose [Mass/Vol] 105 mg/dL High 74-99 [facility] Comment on above: Order Comment: Speci men Type: BLOOD SPECIMEN Result Comment: The [place] Diabetes [employer] (ADA) provides guidance for cutoff [...] Standards of Medical Care in Diabetes 2016, [place] [employer]. Diabetes Care. 2016.39(Suppl 1). Performed By: #### 2 4320-2, , 2776-05 ####[facility] LABORATORYCLIA [id number] [place] [address] [place] Potassium [Moles/Vol] 3.8 mmol/L Normal 3.7-5.1 [facility] Comment on above: Order Comment: Speci men Type: BLOOD SPECIMEN Performed By: #### 2 4320-2, , 2776-05 ####[facility]ORATORYCLIA [id number] [place] [address] [place] Sodium [Moles/Vol] 143 mmol/L Normal 136-144 [facility] Comment on above: Order Comment: Speci men Type: BLOOD SPECIMEN Performed By: #### 2 4320-2, , 2776-05 ####[facility] LABORATORYCLIA [id number] [place] [address] [place] Urea nitrogen [Mass/Vol] 15 mg/dL Normal 9-24 [facility] Comment on above: Order Comment: Speci men Type: BLOOD SPECIMEN Performed By: #### 2 4321-2, 66206-2, 2777-1 ####[facility]ORATORYCLIA [id number] [address] CBC panel Auto (Bld)on 06-01 Erythrocyte distribution width (RBC) [Ratio] 15.4 % High 11.5-15.0 [facility] Comment on above: Order Comment: Speci men Type: BLOOD SPECIMEN Performed By: #### 5 8410-2 ####[facility]ORATORYCLIA [id number] [address] Hematocrit (Bld) [Volume fraction] 38.4 % Low 39.0-51.0 [facility] Comment on above: Order Comment: Speci men Type: BLOOD SPECIMEN Performed By: #### 5 8410-2 ####[facility] LABORATORYCLIA [id number] [address] Hemoglobin (Bld) [Mass/Vol] 11.1 g/dL Low 13.0-17.0 [facility] Comment on above: Order Comment: Speci men Type: BLOOD SPECIMEN Performed By: #### 5 8410-2 ####[facility] LABORATORYCLIA [id number] [address] MCH (RBC) [Entitic mass] 26.9 pg Normal 26.0-34.0 [facility] Comment on above: Order Comment: Speci men Type: BLOOD SPECIMEN Performed By: #### 5 8410-2 ####[facility] LABORATORYCLIA [id number] [address] MCHC (RBC) [Mass/Vol] 28.9 g/dL Low 30.5-36.0 [facility] Comment on above: Order Comment: Speci men Type: BLOOD SPECIMEN Performed By: #### 5 8410-2 ####[facility] LABORATORYCLIA [id number] [address] MCV (RBC) [Entitic vol] 93.2 fL Normal 80.0-100.0 [facility] Comment on above: Order Comment: Speci men Type: BLOOD SPECIMEN Performed By: #### 5 8410-2 ####[facility]ORATORYCLIA [id number] [address] Nucleated RBC (Bld) [#/Vol] 10*3/uL Normal <0.01 [facility] Comment on above: Order Comment: Speci men Type: BLOOD SPECIMEN Performed By: #### 5 8410-2 ####[facility]ORATORYCLIA [id number] [address] Platelet mean volume (Bld) [Entitic vol] 10.2 fL Normal 9.0-12.7 [facility] Comment on above: Order Comment: Speci men Type: BLOOD SPECIMEN Performed By: #### 5 8410-2 ####[facility] LABORATORYCLIA [id number] [address] Platelets (Bld) [#/Vol] 231 10*3/uL Normal 150-400 [facility] Comment on above: Order Comment: Speci men Type: BLOOD SPECIMEN Performed By: #### 5 8410-2 ####[facility]ORATORYCLIA [id number] [address] RBC (Bld) [#/Vol] 4.12 10*6/uL Low 4.20-6.00 [facility] Comment on above: Order Comment: Speci men Type: BLOOD SPECIMEN Performed By: #### 5 8410-2 ####[facility] LABORATORYCLIA [id number] [address] OF [facility] WBC (Bld) [#/Vol] 10.99 10*3/uL Normal 3.70-11.00 [facility] Comment on above: Order Comment: Speci men Type: BLOOD SPECIMEN Performed By: #### 5 8410-2 ####[facility] LABORATORYCLIA [id number] [address] CONSULT PROGon 06-01-2021 CONSULT PROG Normal [facility] CSF MANUAL DIFFon 06-01-2021 DIF TTL, CSF 100 cells counted Normal [facility] Comment on above: Order Comment: Speci men Type: CEREBROSPINAL FLUID Performed By: #### 3 4563-7, [id number] ####[facility]ORATORYCLIA [id number] [place], [place] [address] [place] [address] LYMPH%, CSF 11 % Low 50-90 [facility] Comment on above: Order Comment: Speci men Type: CEREBROSPINAL FLUID Performed By: #### 3 4563-7, [id number] ####[facility]ORATORYCLIA [id number] [address] OF [facility] MONO%, CSF 10 % Normal 10-50 [facility] Comment on above: Order Comment: Speci men Type: CEREBROSPINAL FLUID Performed By: #### 3 4563-7, [id number] ####[facility]ATORYCLIA [id number] [address] [place] NEUT%, CSF 79 % High 0-3 [facility] Comment on above: Order Comment: Speci men Type: CEREBROSPINAL FLUID Performed By: #### 3 4563-7, [id number] ####[facility]ATORYCLIA [id number] [address] [facility] CT BRAIN WO IVCONon 06-01-19 CT BRAIN WO IVCON Normal [facility] Cell count panel (CSF)on Clarity (CSF) Clear Normal Clear [facility] Comment on above: Order Comment: Speci men Type: CEREBROSPINAL FLUID Performed By: #### 3 4563-7, [id number] ####[facility]ATORYCLIA [id number] [address] Clarity (Unsp spec) Not Indicated Normal Clear [facility] Comment on above: Order Comment: Speci men Type: CEREBROSPINAL FLUID Performed By: #### 3 4563-7, [id number] ####[facility]ORYCLIA [id number] [address] Color (CSF) Colorless Normal Colorless [facility] Comment on above: Order Comment: Speci men Type: CEREBROSPINAL FLUID Performed By: #### 3 4563-7, [id number] ####[facility]ORATORYCLIA [id number] [address] Color (Spun CSF) Not Indicated Normal Colorless [facility] Comment on above: Order Comment: Speci men Type: CEREBROSPINAL FLUID Performed By: #### 3 4563-7, [id number] ####[facility]ORATORYCLIA [id number] [address] CSF TUBE NUMBER Sterile Container Normal [facility] Comment on above: Order Comment: Speci men Type: CEREBROSPINAL FLUID Performed By: #### 3 4563-7, [id number] ####[facility]ORATORYCLIA [id number] [address] RBC Manual cnt (CSF) [#/Vol] 171 cells/uL High 0-5 [facility] Comment on above: Order Comment: Speci men Type: CEREBROSPINAL FLUID Performed By: #### 3 4563-7, [id number] ####[facility]ORATORYCLIA [id number] [address] WBC Manual cnt (CSF) [#/Vol] 5 cells/uL Normal 0-5 [facility] Comment on above: Order Comment: Speci men Type: CEREBROSPINAL FLUID Performed By: #### 3 4563-7, [id number] ####[facility] LABORATORYCLIA [id number] [address] [place] FUNGAL CULTUREon 06-01-2021 FUNGAL CULTURE CULTURE, FUNGAL: No Fungus isolated after 28 days Normal [facility] Comment on above: Performed By: #### F CUL ####[facility] LABORATORYCLIA [id number] [address] [place] Glucose CSF-mCncon Glucose (CSF) [...] Glucose HK (GLUC3) [package insert V 12.0 Finnish]. [employer], [place], [place]. September 2015. 2. Michelle Moore, Michelle Manjarrez (2015). Chapter 7: Glucose and Lactate. F. Irina rose al.(eds.), Cerebrospinal Fluid in Clinical Neurology. [place]ickman: [employer]. Performed By: #### 2 342-4, 2880-3 ####[facility] LABORATORYCLIA [id number] [address] [place] HERPES SIMPLEX CSFon 022 HERPES SIMPLEX CSF HSV PCR SPEC SOURCE: Cerebrospinal Fluid HSV-1: Negative for Herpes Simplex Virus Type 1 by PCR HSV-2: Negative for Herpes Simplex Virus Type 2 by PCR Normal [facility] Comment on above: Performed By: #### H [facility] ####[facility] LABCLIA [id number] [place] [place] [address] [place] Lactate (Bld) [Moles/Vol]on 06-01-2021 Lactate [Moles/Vol] 0.5 mmol/L Normal 0.5-2.2 [facility] Comment on above: Order Comment: Speci men Type: BLOOD SPECIMEN Performed By: #### 3 2693-4 ####[facility]ORATORYCLIA [id number] [address] [place] MENINGITIS ENCEPHALITIS BIOF IREon 06-01-2021 MENINGITIS ENCEPHALITIS BIOFIRE Negative Normal [facility] Comment on above: Order Comment: Speci men Type: CEREBROSPINAL FLUID Performed By: #### M GEBF ####[facility] [id number] [address] Magnesium SerPl-mCncon 06-01 Magnesium [Mass/Vol] 2.2 mg/dL Normal 1.7-2.3 [facility] Comment on above: Order Comment: Speci men Type: BLOOD SPECIMEN Performed By: #### 2 4321-2, 29165-1, 2776- ####[facility]ORATORYCLIA [id number] [address] Microorganism Spec Culton Microorganism identified Cx Nom (Unsp spec) CULTURE, AFB: No Acid Fast Bacilli isolated after 42 days AFB STAIN: No acid fast bacilli seen by flurochrome stain Normal [facility] Comment on above: Performed By: #### 1 1475-1 ####[facility]ORATORYCLIA [id number] [address] PROCALCITONIN (LAB)on 2021 Procalcitonin [Mass/Vol] 0.08 ng/mL Normal <0.09 [facility] Comment on above: Order Comment: Speci men Type: BLOOD SPECIMEN Result Comment: For a guided interpretation of test results, please visit the [facility] in Procalcitonin Calculator, [email or web address]. Performed By: #### P ROCAL ####[facility]ORATORYCLIA [id number] [address] Phosphate SerPl-ncon 06-01 Phosphate [Mass/Vol] 3.5 mg/dL Normal 2.7-4.8 [facility] Comment on above: Order Comment: Speci men Type: BLOOD SPECIMEN Performed By: #### 2 4321-2, 09612-8, 2776-05 ####[facility]ORATORYCLIA [id number] [address] [place] Prot CSF-mCncon 06-01-2021 Protein (CSF) [Mass/Vol] 52 mg/dL High 15-45 [facility] Comment on above: Order Comment: Speci men Type: CEREBROSPINAL FLUID Performed By: #### 2 342-4, 2880-3 ####[facility]ORATORYCLIA [id number] [address] [place] Vancomycin random [Mass/Vol] on 06-01-2021 Vancomycin [Mass/Vol] 14.6 ug/mL Normal 10.0-20.0 [facility] Comment on above: Order Comment: Speci men Type: BLOOD SPECIMEN Result Comment: Refe rence ranges and high/low indicator flags are provided as general guidelines only. The treating physician must determine appropriate target levels/dosing based on the specific clinical situation. Performed By: #### 4 091-5 ####[facility] LABORATORYCLIA [id number] [address] STATES OF [facility] XR CHEST 1V FRONTALon 2021 XR CHEST 1V FRONTAL Normal [facility] XR CHEST 1V FRONTAL Normal [facility] XR NECK SOFT TISSUE 2V AP/LA Ton 06-01-2021 XR NECK SOFT TISSUE 2V AP/LAT Normal [facility] XR SKULL 2V AP/LATon 022 XR SKULL 2V AP/LAT Normal [facility] ALLIED HEALTHon 05-31-2021 ALLIED HEALTH HNO ID: [id number] Author: Christina Lynne RT(R) Service: Radiology Author Type: Technologist Type: Allied Health Filed: 05/31/2021 5:48 PM Note Text: MRI tomorrow per RN. Normal [facility] HEALTH Normal [facility] ALLIED HEALTH Normal [facility] HEALTH Normal [facility] ANES POSTPROC [...] on above: Performed By: #### 6 00-7 ####[facility] LABORATORYCLIA [id number] [address] OF [facility] Bacteria CSF Culton 05-31-19 22 Bacteria identified Cx Nom (CSF) CULTURE, CSF: No growth 14 days GRAM STAIN: No organisms seen Rare Polymorphonuclear leukocytes Rare Red Blood Cells Gram stain performed on cytospun specimen. Normal [facility] Comment on above: Performed By: #### 6 06-4 ####[facility] LABORATORYCLIA [id number] [address] OF [facility] Basic metabolic 2000 panelon 05-31-2021 Anion gap [Moles/Vol] 9 mmol/L Normal 9-18 [facility] Comment on above: Order Comment: Speci men Type: BLOOD SPECIMEN Performed By: #### 2 777-1, 89021-7, ####[facility]ORATORYCLIA [id number] [address] [place] Calcium [Mass/Vol] 8.2 mg/dL Low 8.5-10.2 [facility] Comment on above: Order Comment: Speci men Type: BLOOD SPECIMEN Performed By: #### 2 777-1, 70052-1, ####[facility]ATORYCLIA [id number] [address] STATES OF [facility] Chloride [Moles/Vol] 110 mmol/L High 97-105 [facility] Comment on above: Order Comment: Speci men Type: BLOOD SPECIMEN Performed By: #### 2 777-1, , ####[facility]ATORYCLIA [id number] [address] [place] CO2 [Moles/Vol] 27 mmol/L Normal 22-30 [facility] Comment on above: Order Comment: Speci men Type: BLOOD SPECIMEN Performed By: #### 2 777-1, 35986-4, ####[facility] LABORATORYCLIA [id number] [address] [place] Creatinine [Mass/Vol] 0.85 mg/dL Normal 0.73-1.22 [facility] Comment on above: Order Comment: Speci men Type: BLOOD SPECIMEN Performed By: #### 2 777-1, 88161-0, ####[facility]ORATORYCLIA [id number] [place] [address] [place] GFR/1.73 sq M.predicted [...] actual GFR. Performed By: #### 2 777-1, 93139-4, 40807-5 ####[facility] LABORATORYCLIA [id number] [place] [address] [place] Glucose [Mass/Vol] 111 mg/dL High 74-99 [facility] Comment on above: Order Comment: Speci men Type: BLOOD SPECIMEN Result Comment: The [place] [employer] Association (ADA) provides guidance for cutoff [...] Standards of Medical Care in Diabetes 2016, [place] [employer]. Diabetes Care. 2016.39(Suppl 1). Performed By: #### 2 777-1, 40595-9, 39171-8 ####[facility]ORATORYCLIA [id number] [place] [address] [place] Potassium [Moles/Vol] 3.7 mmol/L Normal 3.7-5.1 [facility] Comment on above: Order Comment: Speci men Type: BLOOD SPECIMEN Performed By: #### 2 777-1, 54318-8, ####[facility]ORATORYCLIA [id number] [address] Sodium [Moles/Vol] 146 mmol/L High 136-144 [facility] Comment on above: Order Comment: Speci men Type: BLOOD SPECIMEN Performed By: #### 2 777-1, 14390-9, ####[facility]ORATORYCLIA [id number] [address] STATES OF [facility] Urea nitrogen [Mass/Vol] 16 mg/dL Normal 9-24 [facility] Comment on above: Order Comment: Speci men Type: BLOOD SPECIMEN Performed By: #### 2 777-1, 58978-2, ####[facility]ORATORYCLIA [id number] [address] [place] CASE MGT INIT ASSESon 2021 CASE MGT INIT ASSES Normal [facility] CBC W Auto Differential pane l (Bld)on 05-31-2021 Basophils (Bld) [#/Vol] 0.04 10*3/uL Normal <0.11 [facility] Comment on above: Order Comment: Speci men Type: BLOOD SPECIMEN Performed By: #### 5 7021-8 ####[facility]ORATORYCLIA [id number] [address] Basophils/100 WBC (Bld) 0.5 % Normal [facility] Comment on above: Order Comment: Speci men Type: BLOOD SPECIMEN Performed By: #### 5 7021-8 ####[facility]ATORYCLIA [id number] [address] Differential cell count method Nom (Bld) Auto Normal [facility] Comment on above: Order Comment: Speci men Type: BLOOD SPECIMEN Performed By: #### 5 7021-8 ####[facility]ATORYCLIA [id number] [address] Eosinophils (Bld) [#/Vol] 0.27 10*3/uL Normal <0.46 [facility] Comment on above: Order Comment: Speci men Type: BLOOD SPECIMEN Performed By: #### 5 7021-8 ####[facility]ORATORYCLIA [id number] [address] Eosinophils/100 WBC (Bld) 3.3 % Normal [facility] Comment on above: Order Comment: Speci men Type: BLOOD SPECIMEN Performed By: #### 5 7021-8 ####[facility]ORATORYCLIA [id number] [address] Erythrocyte distribution width (RBC) [Ratio] 15.4 % High 11.5-15.0 [facility] Comment on above: Order Comment: Speci men Type: BLOOD SPECIMEN Performed By: #### 5 7021-8 ####[facility]ORATORYCLIA [id number] [address] Hematocrit (Bld) [Volume fraction] 37.9 % Low 39.0-51.0 [facility] Comment on above: Order Comment: Speci men Type: BLOOD SPECIMEN Performed By: #### 5 7021-8 ####[facility]ATORYCLIA [id number] [address] Hemoglobin (Bld) [Mass/Vol] 11.5 g/dL Low 13.0-17.0 [facility] Comment on above: Order Comment: Speci men Type: BLOOD SPECIMEN Performed By: #### 5 7021-8 ####[facility]ATORYCLIA [id number] [address] IMMATURE GRAN % 0.4 % Normal [facility] Comment on above: Order Comment: Speci men Type: BLOOD SPECIMEN Performed By: #### 5 7021-8 ####[facility]ATORYCLIA [id number] [address] IMMATURE GRAN ABS 0.03 k/uL Normal <0.10 [facility] Comment on above: Order Comment: Speci men Type: BLOOD SPECIMEN Performed By: #### 5 7021-8 ####[facility]ATORYCLIA [id number] [address] Lymphocytes (Bld) [#/Vol] 1.90 10*3/uL Normal 1.00-4.00 [facility] Comment on above: Order Comment: Speci men Type: BLOOD SPECIMEN Performed By: #### 5 7021-8 ####[facility]ATORYCLIA [id number] [address] Lymphocytes/100 WBC (Bld) 23.0 % Normal [facility] Comment on above: Order Comment: Speci men Type: BLOOD SPECIMEN Performed By: #### 5 7021-8 ####[facility]ATORYCLIA [id number] [address] MCH (RBC) [Entitic mass] 28.0 pg Normal 26.0-34.0 [facility] Comment on above: Order Comment: Speci men Type: BLOOD SPECIMEN Performed By: #### 5 7021-8 ####[facility]ATORYCLIA [id number] [address] MCHC (RBC) [Mass/Vol] 30.3 g/dL Low 30.5-36.0 [facility] Comment on above: Order Comment: Speci men Type: BLOOD SPECIMEN Performed By: #### 5 7021-8 ####[facility]ATORYCLIA [id number] [address] MCV (RBC) [Entitic vol] 92.4 fL Normal 80.0-100.0 [facility] Comment on above: Order Comment: Speci men Type: BLOOD SPECIMEN Performed By: #### 5 7021-8 ####[facility]ORATORYCLIA [id number] [address] Monocytes (Bld) [#/Vol] 0.60 10*3/uL Normal <0.87 [facility] Comment on above: Order Comment: Speci men Type: BLOOD SPECIMEN Performed By: #### 5 7021-8 ####[facility]ORATORYCLIA [id number] [address] Monocytes/100 WBC (Bld) 7.3 % Normal [facility] Comment on above: Order Comment: Speci men Type: BLOOD SPECIMEN Performed By: #### 5 7021-8 ####[facility]ORYCLIA [id number] [address] Neutrophils (Bld) [#/Vol] 5.41 10*3/uL Normal 1.45-7.50 [facility] Comment on above: Order Comment: Speci men Type: BLOOD SPECIMEN Performed By: #### 5 7021-8 ####[facility] LABORATORYCLIA [id number] [address] Neutrophils/100 WBC (Bld) 65.5 % Normal [facility] Comment on above: Order Comment: Speci men Type: BLOOD SPECIMEN Performed By: #### 5 7021-8 ####[facility]ORYCLIA [id number] [address] Nucleated RBC (Bld) [#/Vol] 10*3/uL Normal <0.01 [facility] Comment on above: Order Comment: Speci men Type: BLOOD SPECIMEN Performed By: #### 5 7021-8 ####[facility]ORYCLIA [id number] [address] Nucleated RBC/100 WBC (Bld) [Ratio] 0.0 /100 WBC Normal 0.0 [facility] Comment on above: Order Comment: Speci men Type: BLOOD SPECIMEN Performed By: #### 5 7021-8 ####[facility]ORYCLIA [id number] [address] Platelet mean volume (Bld) [Entitic vol] 9.8 fL Normal 9.0-12.7 [facility] Comment on above: Order Comment: Speci men Type: BLOOD SPECIMEN Performed By: #### 5 7021-8 ####[facility]ORATORYCLIA [id number] [address] Platelets (Bld) [#/Vol] 251 10*3/uL Normal 150-400 [facility] Comment on above: Order Comment: Speci men Type: BLOOD SPECIMEN Performed By: #### 5 7021-8 ####[facility]ATORYCLIA [id number] [address] RBC (Bld) [#/Vol] 4.10 10*6/uL Low 4.20-6.00 [facility] Comment on above: Order Comment: Speci men Type: BLOOD SPECIMEN Performed By: #### 5 7021-8 ####[facility]ATORYCLIA [id number] [address] WBC (Bld) [#/Vol] 8.25 10*3/uL Normal 3.70-11.00 [facility] Comment on above: Order Comment: Speci men Type: BLOOD SPECIMEN Performed By: #### 5 7021-8 ####[facility]ORATORYCLIA [id number] [address] CONSULTon 05-31-2021 CONSULT Normal [facility] [...] ug/dL Performed By: #### 2 143-6, 3016-3 ####[facility]ORATORYCLIA [id number] [address] Cryptoc Ag Spec Ql LAon 05-08 Cryptococcus sp Ag LA Ql (Unsp spec) Negative Normal [facility] Comment on above: Performed By: #### 4 3228-6 ####[facility]ORATORYCLIA [id number] [address] [place] HISTORY PHYSICALon 2 HISTORY PHYSICAL Normal [facility] Magnesium SerPl-ncon 05-31 Magnesium [Mass/Vol] 2.2 mg/dL Normal 1.7-2.3 [facility] Comment on above: Order Comment: Speci men Type: BLOOD SPECIMEN Performed By: #### 2 777-1, 08686-9, 74166-8 ####[facility]ATORYCLIA [id number] [address] [place] NURSING PROGon 05-31-2021 NURSING PROG Normal [facility] NUTRITIONon 05-31-2021 NUTRITION Normal [facility] OPERATIVE NOon 05-31-2021 OPERATIVE NO Normal [facility] Phosphate SerPl-mCncon 05-31 Phosphate [Mass/Vol] 3.3 mg/dL Normal 2.7-4.8 [facility] Comment on above: Order Comment: Speci men Type: BLOOD SPECIMEN Performed By: #### 2 777-1, 29753-9, ####[facility]ORATORYCLIA [id number] [address] STAPH AUREUS PCRon 2 S. aureus and MRSA panel MEGAN+probe (Nose) Normal Negative [facility] Comment on above: Order Comment: Speci men Type: SWAB OF INTERNAL NOSE Result Comment: Nega tive for Staphylococcus aureus by PCR.Negative for MRSA by PCR Performed By: #### S APCR ####[facility]ORATORYCLIA [id number] [address] [place] TSH SerPl-aCncon 05-31-2021 TSH Qn 0.829 m[IU]/L Normal 0.270-4.200 [facility] Comment on above: Order Comment: Speci men Type: BLOOD SPECIMEN Performed By: #### 2 143-6, 3016-3 ####[facility]ORATORYCLIA [id number] [address] XR CHEST 1V FRONTALon 2021 XR CHEST 1V FRONTAL Normal [facility] XR CHEST 1V FRONTAL Normal [facility] Blood Cultureon 05-30-2021 Bacteria identified Cx Nom (Bld) Culture Result - No growth 5 days Normal [facility] Comment on above: Performed By: #### C AD #### [facility] [address] [place] [address] Bacteria identified Cx Nom (Bld) Sp. Request/Comment: - 8.2MLS Culture Result - No growth 5 days Normal [facility] Comment on above: Performed By: #### C AD #### [facility] [address] [place] [address] C-Reactive Proteinon 022 C-Reactive Protein 1.7 mg/dL High <0.[address] [facility] Comment on above: Performed By: #### C RP ####[facility] [address] [place] [phone] CNDSon 05-30-2021 [facility] HNO ID: [id number] Author: Columba Carroll PA-C Service: Hospital Medicine Author Type: Physician Rotary Driller Type: Discharge Summary Filed: 05/30/2021 12:49 PM Note Text: ----- Attestation signed by Ayaka Menjivar MD at 06/01/2021 12:53 PM Attending Note I have personally reviewed the PA/COVERED BUCKLE ASSEMBLER note. Agree with above assessment and plan. [...] Team: Attending Provider: Ayaka Menjivar MD Physician Rotary Driller: Columba Carroll PA-C Consulting: Lilo Mendoza MD [...] Neurology suggested empiric abx coverage for WATCH DIAL PRINTER infection Rocephin and Vancomycin was started. Tele-neuro also suggested an MRI brain be obtained prior to LP to check BEVELER shunt and decrease risk of herniation in neurosurgery capable facility. Transfer to [facility] requested. Sepsis lactate was 1.3. ABG showed pO2 67.8, placed patient on 2L NC.Follow B1, B12, and RPR pending. 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 LABS AND PROCEDURES PENDING [...] intravenously q 1 (more content not included)... [facility] CONSULTon 05-30-2021 CONSULT HNO ID: [id number] Author: Juan Carlos Mckenzie MD Service: Infectious [...] vertebrae with counting from the craniocervical junction. Lockstitch Machine Operator: Snapd App Transcribe Date/Time: May 29 2021 8:59P Dictated by : CARLOS YOUNGER MD This examination was interpreted and the report reviewed and electronically signed by: CARLOS YOUNGER MD on May 29 2021 9:14PM EST ? CT CERVICAL SPINE WO (more content not included)... Normal [facility] CONSULT HNO ID: [id number] Author: Lilo Mendoza MD Service: Neurology General Author Type: Physician Type: Consults Filed: 05/30/2021 10:56 AM Note Text: [facility] TeleNeurology Consult Note Patient seen using [facility]. Recommendations are placed in the chart. Please review. For questions after hours, when teleneurologist is not available, for [place]: Please Page [phone] for the [facility] Neurology Group from 12pm to 8Am Admitting Provider/Consulted by:Hermes Roca MD Time of Note:05/30/2021 Patient Name:Andrew Sifuentes Admit Date:05/29/2021 Hospital Day:0 CC: altered mental status History of Present Illness: Andrew R Gurpreet is a 71 year old unknown handed male with limited information about past medical history including venous insufficiency s/p EVLT, hydrocepalus s/p BEVELER shunt in 1987 with multiple revisions and [...] Reflexes Right Lef (more content not included)... 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 Age: [age] year old Allergies: ALLERGIES Allergen [...] Levels: No results found for: IMANI Gutierres [facility] Normal [facility] Creatinineon 05-30-2021 Creatinine [Mass/Vol] 0.86 mg/dL Normal 0.73-1.22 [facility] Comment on above: Performed By: #### C RET1 ####[facility] Xuhbuoncod1174 [address] eGFR- Amer. >[address] [facility] Comment on above: Performed By: #### C RET1 ####[facility] Nlmaetbrsj9994 [address] eGFR-All Other Races >60 Normal [facility] Comment on above: Result Comment: eGFR [...] C RET1 ####[facility] [address] [place] [phone] Crypto Antigen Deton 022 Crypto Antigen Det Sp. Request/Comment: - SST Test Result - Duplicate request Account Credited [facility] Comment on above: Performed By: #### C AD #### [facility] [address] [place] [address] [facility] [address] [place] [address] Crypto Antigen Det Sp. Request/Comment: - SST Test Result - Cryptococcal antigen detection result: Negative By latex agglutination [facility] Comment on above: Performed By: #### C AD #### [facility] [address] [place] [phone] [facility] [address] [place] [address] ED NOTEon 05-30-2021 ED NOTE HNO ID: [id number] Author: Aletha Lopez RN Service: ? Author Type: Registered Nurse Type: ED Notes Filed: 05/29/2021 11:16 PM Note Text: Patient changed for incontinent urine, labs redrawn and sent. Patient aware of plan to be admitted and agrees with plan Normal [facility] HISTORY PHYSICALon HISTORY PHYSICAL Normal [facility] HISTORY PHYSICAL HNO ID: [id number] Author: Hermes Roca MD Service: Hospital Medicine Author Type: Physician Type: HANDP Filed: 05/30/2021 1:03 AM Note Text: DEPARTMENT OF HOSPITAL MEDICINE HISTORY AND PHYSICAL EXAM SERVICE DATE: 05/29/2021 SERVICE TIME: 11:18 PM Primary Care Physician: Mateus Burris MD NIGHT AND WEEKEND COVERAGE: Please page [phone] until 7:30am this morning. After 7:30am please check the treatment team banner and page the appropriate service. Subjective CHIEF COMPLAINT: Fall HPI: This is a 71 year old male with PMH of asthma, venous insufficiency s/p EVLT, obstructive hydrocepalus s/p BEVELER shunt in 1987 with multiple revisions and [...] SPECIMEN Performed By: #### 1 9123-9, 2777-1 ####[facility]ORATORYCLIA [id number] [place] [address] [place] NURSING PROGon 05-30-2021 NURSING PROG HNO ID: [id number] Author: Precious Cervantes RN Service: ? Author Type: Registered Nurse Type: Nursing Progress Note Filed: 05/30/2021 11:26 AM Note Text: Nursing Progress Note Patient Name: Andrew Sifuentes Patient Location: [place] [address]/[id number]- Daily Note: 0700- Report received from casino shift manager RN, patient resting in bed at this time, call light within reach, bed low and locked. Asked the patient to state his name because casino shift manager RN was unable to complete [...] This note was completed by: Precious Cervantes [facility] NURSING PROG HNO ID: [id number] Author: Lyubov Day RN Service: ? Author Type: Registered Nurse Type: Nursing Progress Note Filed: 05/30/2021 1:27 AM Note Text: Nursing Progress Note Patient Name: Andrew STACKN: [id number] Patient Location: [facility]-0217/[id number] 0100: Patient is unresponsive to questions. Patient [...] bed. This note was completed by: Lyubov aDy [facility] Phosphate SerPl-mCncon 05-30 Phosphate [Mass/Vol] 3.5 mg/dL Normal 2.7-4.8 [facility] Comment on above: Order Comment: Speci men Type: BLOOD SPECIMEN Performed By: #### 1 9123-9, 2777-1 ####[facility]ORATORYCLIA [id number] [place] [address] [place] Sepsis Lactateon 05-30-2021 Sepsis Lactate 1.5 mmol/L Normal 0.5-2.[address] [facility] Comment on above: Performed By: #### S LACT ####[facility] [address] [place] [phone] Syphilis Ttl w/Reflxon 05-30 Syphilis Interp Cannot exclude recen t Treponemal infection if specimen collected within 7 to 10 days after appearance of suspect lesions or 2 to 3 weeks after an exposure. Clinical correlation is required. [facility] Comment on above: Performed By: #### S SAMUEL RUCKER ####[facility] [place], [place] [phone] Syphilis Screen Rslt Non-Reactive Normal Non Reactive [facility] Comment on above: Performed By: #### S SAMUEL RUCKER ####[facility] [place], [place] [phone] THERAPY NTon 05-30-2021 THERAPY NT HNO ID: [id number] Author: Bette Jimenez OTR/L Service: Occupational Therapy Author Type: Occupational Therapist Type: Therapy (PT/OT/Speech/Resp) Filed: 05/30/2021 10:29 AM Note Text: OCCUPATIONAL THERAPY MISSED VISIT SERVICE DATE: 05/30/2021 SERVICE TIME: 1017 to 1019 ROOM: [place] [address] Attempted Evaluation. Patient not seen due to Not following commands. Per nursing patient was seen by neuro and they are talking about having him transferred to [facility] secondary to shunt concerns. Will re attempt in the event patient continues to be admitted at [place] and is able to participate. SIGNATURE: RADHA Andres/L PATIENT NAME: Andrew Sifuentes DATE: May 30, 2021 TIME: 10:21 AM Normal [facility] THERAPY NT HNO ID: [id number] Author: Bette Velasquez PT Service: Physical Therapy Author Type: Physical Therapist Type: Therapy (PT/OT/Speech/Resp) Filed: 05/30/2021 8:42 AM Note Text: PHYSICAL THERAPY MISSED VISIT SERVICE DATE: 05/30/2021 SERVICE TIME: 0840 to 0840 ROOM: [place] [address] Attempted Evaluation. Patient not seen due to [...] ng/mL. Performed By: #### C AD #### [facility] [address] [place] [address] [facility] [address] [place], [place] [address] Barbiturates, Urine Negative Normal Negative [facility] Comment on above: Result Comment: Cuto ff threshold at 200 ng/mL. Performed By: #### C AD #### [facility] [place] [phone] [place] [address] Benzodiazepines, Ur Negative Normal Negative [facility] Comment on above: Result Comment: Cuto ff threshold at 200 ng/mL. Performed By: #### C AD #### [facility] [place] [phone] [place] [address] Cannabinoids, Urine Negative Normal Negative [facility] Comment on above: Result Comment: Cuto ff threshold at 50 ng/mL. Performed By: #### C AD #### [facility] [address] [place] [phone] Cocaine, Urine Negative Normal Negative [facility] Comment on above: Result Comment: Cuto ff threshold at 300 ng/mL. Performed By: #### C AD #### [facility] [address] [place], [place] [phone] [place] [address] Opiates, Urine Negative Normal Negative [facility] Comment on above: Result Comment: Cuto ff threshold at 300 ng/mL. Performed By: #### C AD #### [facility] [address] [place], [place] [phone] [place] [address] Oxycodone, Urine Negative Normal [facility] [...] on the same specimen through Client Services ([phone]) if contacted within 48 hours of initial testing. [1]Substance Abuse and Mental Health Services Administration (2012). Clinical Drug Testing in Primary Care Technical Assistance Publication Series 32. Department of Health and Human Services, [place], p.10. Performed By: #### C AD #### [facility] [address] [place] [phone] Phencyclidine, Urine Negative Normal Negative [facility] Comment on above: Result Comment: Cuto ff threshold at 25 ng/mL. Performed By: #### C AD #### [facility] [address] [place] [phone] Troponin Ton 05-30-2021 Troponin T <0.010 Normal 0.000-0.[address] [facility] Comment on above: Performed By: #### T NT ####[facility] [address] [place] [phone] Urinalysison 05-30-2021 Bilirubin, Urine Negative Normal Negative [facility] Comment on above: Performed By: #### C AD #### [facility] [address] [place] [phone] Clarity (U) Slightly Cloudy Critically abnormal Clear [facility] Comment on above: Performed By: #### C AD #### [facility] [address] [place] [phone] Color (U) Yellow Normal Yellow [facility] Comment on above: Performed By: #### C AD #### [facility] [address] [place], [place] [address]e [place], [place] [address] Glucose Ql (U) Negative Normal Negative [facility] Comment on above: Performed By: #### C AD #### [facility] [address] [place] [address] [facility] [address] [place], [place] [address] Hemoglobin/Blood,Ur Negative Normal Negative [facility] Comment on above: Performed By: #### C AD #### [facility] [address] [place] [address] [facility] [address] [place], [place] [address] Ketones Ql (U) Negative Normal Negative [facility] Comment on above: Performed By: #### C AD #### [facility] [address] [place] [address] [facility] [address] [place], [place] [address] Leukest Negative Normal Negative [facility] Comment on above: Performed By: #### C AD #### [facility] [address] [place] [address] [facility] [address] [place], [place] [address] Nitrite Ql (U) Negative Normal Negative [facility] Comment on above: Performed By: #### C AD #### [facility] [address] [place] [address] [facility] [address] [place], [place] [address] pH (U) 8.5 [pH] High 5.0-8.0 [facility] Comment on above: Performed By: #### C AD #### [facility] [address] [place] [address] [facility] [address] [place], [place] [address] Protein, Urine Negative Normal Negative [facility] Comment on above: Performed By: #### C AD #### [facility] [address] [place] [address] [facility] [address] [place], [place] [address] Specific [place], Ur 1.015 Normal 1.005-1.030 [facility] Comment on above: Performed By: #### C AD #### [facility] [address] [place] [address] [facility] [address] [place], [place] [address] Urobilinogen Qn (U) 0.2 {Marianne'U}/dL Normal 0.2-1.[address] [facility] Comment on above: Performed By: #### C AD #### [facility] [address] [place] [address] [address] Vitamin B1, Whole Blon 05-30 Vitamin B1 (TDP), WB 207.1 nmol/L Normal 84.0-213.0 [facility] Comment on above: Result Comment: This assay measures the concentration of thiamine diphosphate (TDP), the primary active form of vitamin B1. Approximately 90 percent of vitamin B1 present in whole blood is TDP. Thiamine and thiamine monophosphate, which comprise the remaining 10 percent, are not measured. This test was developed and its performance characteristics determined by [facility] Isrrael Perez [facility] Pathology and Laboratory Medicine [place] ( [facility]). It has not been cleared or approved by the FDA. [facility] is regulated under CLIA as qualified to perform high complexity testing. This test is used for clinical purposes. It should not be regarded as investigational or for research. Performed By: #### S YPHTX, B1WB ####[facility] [place], [place] [phone] Vitamin B12on 05-30-2021 Cobalamin (Vitamin B12) [Mass/Vol] 494 pg/mL Normal 232-[address] [facility] Comment on above: Performed By: #### C AD #### [facility] [address] [place] [address] [place] [address] [place], [place] [address] ALLIED HEALTHon 05-29-2021 [facility] HNO ID: [id number] Author: RT Kitty(Lisa) Service: Radiology Author Type: Technologist Type: [facility] Filed: 05/29/2021 8:51 PM Note Text: [...] RT Kitty(R) May 29, 2021 8:51 PM [facility] HNO ID: [id number] Author: Markie Fish Service: ? Author Type: Water Supervisor Type: [facility] Filed: 05/29/2021 8:39 PM Note Text: [...] Markie Fish May 29, 2021 8:38 PM [facility] CBC and Differentialon 05-29 Abs Baso 0.05 k/uL Normal <0.[address] [facility] Comment on above: Performed By: #### C MP, MG1, CBCDIF ####[facility] [address] [place] [address] Abs [place] 0.72 k/uL Normal <0.[address] [facility] Comment on above: Performed By: #### C MP, MG1, CBCDIF ####[facility] [address] [place] [address] Abs Neut 7.86 k/uL High 1.45-7.[address] [facility] Comment on above: Performed By: #### C MP, MG1, CBCDIF ####[place] [address] Absolute nRBC <0.01 Normal <0.[address] [facility] Comment on above: Performed By: #### C MP, MG1, CBCDIF ####[place] [address] Basophils/100 WBC (Bld) 0.5 % [facility] Comment on above: Performed By: #### C MP, MG1, CBCDIF ####[place] [address] DTYPE Auto Diff Normal [facility] Comment on above: Performed By: #### C MP, MG1, CBCDIF ####[place] [address] Eosinophils (Bld) [#/Vol] 0.10 10*3/uL Normal <0.[address] [facility] Comment on above: Performed By: #### C MP, MG1, CBCDIF ####[place] [address] Eosinophils/100 WBC (Bld) 0.9 % [facility] Comment on above: Performed By: #### C MP, MG1, CBCDIF ####[place] [address] Erythrocyte distribution width (RBC) [Ratio] 15.5 % High 11.5-15.[address] [facility] Comment on above: Performed By: #### C MP, MG1, CBCDIF ####[place] [address] Hematocrit (Bld) [Volume fraction] 41.6 % Normal 39.0-51.[address] [facility] Comment on above: Performed By: #### C MP, MG1, CBCDIF ####[facility] [address] [place] [address] Hemoglobin (Bld) [Mass/Vol] 12.7 g/dL Low 13.0-17.[address] [facility] Comment on above: Performed By: #### C MP, MG1, CBCDIF ####[facility] [address] [place] [address] Lymphocytes (Bld) [#/Vol] 2.04 10*3/uL Normal 1.00-4.[address] [facility] Comment on above: Performed By: #### C MP, MG1, CBCDIF ####[facility] [address] [place] [address] Lymphocytes/100 WBC (Bld) 18.9 % Normal [facility] Comment on above: Performed By: #### C MP, MG1, CBCDIF ####[facility] [address] [place] [address] MCH 27.3 pG Normal 26.0-34.[address] [facility] Comment on above: Performed By: #### C MP, MG1, CBCDIF ####[facility] [address] [place] [address] MCHC (RBC) [Mass/Vol] 30.5 g/dL Normal 30.5-36.0 [facility] Comment on above: Performed By: #### C MP, MG1, CBCDIF ####[facility] [address] [place], [place] [id number] MCV (RBC) [Entitic vol] 89.5 fL Normal 80.0-100.[address] [facility] Comment on above: Performed By: #### C MP, MG1, CBCDIF ####[facility] [address] [place], [place] [phone] Monocytes/100 WBC (Bld) 6.7 % Normal [facility] Comment on above: Performed By: #### C MP, MG1, CBCDIF ####[facility] [address] [place], [place] [phone] Neutrophils/100 WBC (Bld) 73.0 % Normal [facility] Comment on above: Performed By: #### C MP, MG1, CBCDIF ####[facility] [address] [place] [address] NRBCs 0.0 /100 WBC Normal [address] [facility] Comment on above: Performed By: #### C MP, MG1, CBCDIF ####[facility] Gzikapmsii7999 [address] Platelet mean volume (Bld) [Entitic vol] 10.1 fL Normal 9.0-12.[address] [facility] Comment on above: Performed By: #### C MP, MG1, CBCDIF ####[facility] Ltdkkgpuoj[address]676 [place] [address] Platelets (Bld) [#/Vol] 291 10*3/uL Normal 150-[address] [facility] Comment on above: Performed By: #### C MP, MG1, CBCDIF ####[facility] [address] [place] [address] RBC (Bld) [#/Vol] 4.65 10*6/uL Normal 4.20-6.00 [facility] Comment on above: Performed By: #### C MP, MG1, CBCDIF ####[facility] [address] [place] [address] WBC (Bld) [#/Vol] 10.77 10*3/uL Normal 3.70-11.00 [facility] Comment on above: Performed By: #### C MP, MG1, CBCDIF ####[facility] [address] [place] [id number] CT BRAIN WO IVCONon 05-29-19 CT BRAIN WO IVCON * * *Final Report* * * DATE OF EXAM: May 29 2021 8:42PM [facility] [facility] [place]IN [place] / PROCEDURE REASON: Head trauma, headache * * * * Physician Interpretation * * * * EXAMINATION: CT CERVICAL SPINE WO IVCON, CT BRAIN WO IVCON CLINICAL HISTORY: C-spine trauma, NEXUS/CCR positive (accession [id number]), Head trauma, headache (accession [id number]) TECHNIQUE: Serial axial unenhanced images were obtained from the vertex to the foramen magnum. Spiral, high resolution axial unenhanced images were obtained from the skull base to the cervicothoracic junction with sagittal and coronal planar reconstructions. Dose-Length Product (DLP): 2132 mGy*cm. CT Dose Reduction Employed: Automated exposure control (AEC) COMPARISON: 08/13/[address] RESULT: BRAIN: Post-operative change: Right parietal approach BEVELER shunt is intact. The intracranial fragments of [...] vertebrae with counting from the craniocervical junction. Lockstitch Machine Operator: OG Transcribe Date/Time: May 29 2021 8:59P Dictated by : CARLOS YOUNGER MD This examination was interpreted and the report reviewed and electronically signed by: CARLOS YOUNGER MD on May 29 2021 9:14PM EST [id number] [facility] CT CERVICAL SPINE WO IVCONon 05-29-2021 CT CERVICAL SPINE WO IVCON * * *Final Report* * * DATE OF EXAM: May 29 2021 8:42PM [facility] [place] CERVICAL SPINE WO IVCON / PROCEDURE REASON: C-spine trauma, NEXUS/CCR positive * * * * Physician Interpretation * * * * EXAMINATION: CT CERVICAL SPINE WO IVCON, CT BRAIN WO IVCON CLINICAL HISTORY: C-spine trauma, NEXUS/CCR positive (accession [id number]), Head trauma, headache (accession [id number]) TECHNIQUE: Serial axial unenhanced images were obtained from the vertex to the foramen magnum. Spiral, high resolution axial unenhanced images were obtained from the skull base to the cervicothoracic junction with sagittal and coronal planar reconstructions. Dose-Length Product (DLP): 2132 mGy*cm. CT Dose Reduction Employed: Automated exposure control (AEC) COMPARISON: 08/13/[address] RESULT: BRAIN: Post-operative change: Right parietal approach BEVELER shunt is intact. The intracranial fragments of [...] vertebrae with counting from the craniocervical junction. Lockstitch Machine [facility] Transcribe Date/Time: May 29 2021 8:59P Dictated by : CARLOS YOUNGER MD This examination was interpreted and the report reviewed and electronically signed by: CARLOS YOUNGER MD on May 29 2021 9:14PM EST [id number] [facility] Cepheid Bill only (EXCFR)on 05-29-2021 Cepheid Bill only (EXCFR) Billed for services performed Normal [facility] Comment on above: Performed By: #### C AD #### [facility] [address] [place] [address] [facility] [address] [place], [place] [address] Comp Metabolic Panelon 05-29 Albumin [Mass/Vol] 4.1 g/dL Normal 3.9-4.[address] [facility] Comment on above: Performed By: #### C MP ####[facility] [address] [place] [address] ALP [Catalytic activity/Vol] 86 U/L Normal 38-[address] [facility] Comment on above: Performed By: #### C MP ####[facility] [address] [place] [address] ALT [Catalytic activity/Vol] 15 U/L Normal 10-[address] [facility] Comment on above: Performed By: #### C MP ####[facility] [address]df[address] [place] [address] Anion gap [Moles/Vol] 9 mmol/L Normal 9-18 [facility] Comment on above: Performed By: #### C MP ####[facility] [address] [place] [address] AST [Catalytic activity/Vol] 22 U/L Normal 14-[address] [facility] Comment on above: Performed By: #### C MP ####[facility] [address]uf[address] [place] [address] Bilirubin [Mass/Vol] 0.2 mg/dL Normal 0.2-1.3 [facility] Comment on above: Performed By: #### C MP ####[facility] [address] [place] [address] Calcium [Mass/Vol] 9.1 mg/dL Normal 8.5-10.[address] [facility] Comment on above: Performed By: #### C MP ####[facility] [address]zvh[address] [place] [address] Chloride [Moles/Vol] 103 mmol/L Normal 97-105 [facility] Comment on above: Performed By: #### C MP ####[facility] [address]kwag[address] [place] [address] CO2 [Moles/Vol] 29 mmol/L Normal 22-[address] [facility] Comment on above: Performed By: #### C MP ####[facility] [address]uba[address] [place] [address] Creatinine [Mass/Vol] 0.89 mg/dL Normal 0.73-1.22 [facility] Comment on above: Performed By: #### C MP ####[facility] [address] [place] [address] eGFR- Amer. >[address] [facility] Comment on above: Performed By: #### C MP ####[facility] [address]auv[address] [place] [address] eGFR-All Other Races >60 Normal [facility] Comment on above: Result Comment: eGFR [...] C MP ####[facility] Omywwsjalk5102 [address] Glucose [Mass/Vol] 120 mg/dL High 74-[address] [facility] Comment on above: Result Comment: The [place] Diabetes Association (ADA) provides guidance for cutoff [...] Standards of Medical Care in Diabetes 2016, [place] [employer]. Diabetes Care. 2016.39(Suppl 1). Performed By: #### C MP ####[facility] [address] [place] [address] Potassium [Moles/Vol] 4.2 mmol/L Normal 3.7-5.1 [facility] Comment on above: Performed By: #### C MP ####[facility] [address] [place] [address] Protein [Mass/Vol] 7.1 g/dL Normal 6.3-8.[address] [facility] Comment on above: Performed By: #### C MP ####[place] [address] Sodium [Moles/Vol] 141 mmol/L Normal 136-[address] [facility] Comment on above: Performed By: #### C MP ####[facility] [address] [place] [address] Urea nitrogen [Mass/Vol] 11 mg/dL Normal 9-[address] [facility] Comment on above: Performed By: #### C MP ####[place] [address] Albumin [Mass/Vol] 4.1 g/dL Normal 3.9-4.[address] [facility] Comment on above: Performed By: #### C MP, MG1, CBCDIF ####[place] [address] ALP [Catalytic activity/Vol] 86 U/L Normal 38-[address] [facility] Comment on above: Performed By: #### C MP, MG1, CBCDIF ####[place] [address] ALT Unable to assay due to interference from hemolysis. Suggest reorder as clinically indicated. Normal 10-[address] [facility] Comment on above: Result Comment: Call ed to LISA Rea at 2129 on 05.29.21 by Sabino Performed By: #### C MP, MG1, CBCDIF ####[facility] [address] [place] [address] Anion gap [Moles/Vol] 12 mmol/L Normal 9-18 [facility] Comment on above: Performed By: #### C MP, MG1, CBCDIF ####[facility] [address] [place] [address] AST Unable to assay due to interference from hemolysis. Suggest reorder as clinically indicated. Normal 14-[address] [facility] Comment on above: Result Comment: Call ed to ED Álvaro at 2129 on 05.29.21 by Sabino Performed By: #### C MP, MG1, CBCDIF ####[facility] [address] [place] [address] Bilirubin [Mass/Vol] 0.2 mg/dL Normal 0.2-1.3 [facility] Comment on above: Performed By: #### C MP, MG1, CBCDIF ####[facility] [address] [place] [address] Calcium [Mass/Vol] 9.0 mg/dL Normal 8.5-10.[address] [facility] Comment on above: Performed By: #### C MP, MG1, CBCDIF ####[facility] Wn[address]duueze3435 [place] [address] Chloride [Moles/Vol] 102 mmol/L Normal 97-105 [facility] Comment on above: Performed By: #### C MP, MG1, CBCDIF ####[facility] [address]tope[address] [place] [address] CO2 [Moles/Vol] 27 mmol/L Normal 22-[address] [facility] Comment on above: Performed By: #### C MP, MG1, CBCDIF ####[facility] [address] [place] [address] Creatinine [Mass/Vol] 0.75 mg/dL Normal 0.73-1.22 [facility] Comment on above: Performed By: #### C MP, MG1, CBCDIF ####[facility] [address]kt54[address] [place] [address] eGFR- Amer. >[address] [facility] Comment on above: Performed By: #### C MP, MG1, CBCDIF ####[facility] [address]iq8504 [place] [phone] eGFR-All Other Races >60 Normal [facility] Comment on above: Result Comment: eGFR [...] MG1, CBCDIF ####[facility] [address]p7[address] [place] [address] Glucose [Mass/Vol] 112 mg/dL High 74-[address] [facility] Comment on above: Result Comment: The [place] Diabetes Association (ADA) provides guidance for cutoff [...] Standards of Medical Care in Diabetes 2016, [place] [employer]. Diabetes Care. 2016.39(Suppl 1). Performed By: #### C MP, MG1, CBCDIF ####[facility] [address] [place] [phone] Potassium Unable to assay due to interference from hemolysis. Suggest reorder as clinically indicated. Normal 3.7-5.[address] [facility] Comment on above: Result Comment: Call ed to ED Álvaro at 2129 on 05.29.21 by Sabino Performed By: #### C MP, MG1, CBCDIF ####[facility] [address] [place] [phone] Protein [Mass/Vol] 7.3 g/dL Normal 6.3-8.[address] [facility] Comment on above: Performed By: #### C MP, MG1, CBCDIF ####[facility] Xpqnuqseui4168 [phone] Sodium [Moles/Vol] 141 mmol/L Normal 136-[address] [facility] Comment on above: Performed By: #### C MP, MG1, CBCDIF ####[facility] Tgfgmpdpjd0333 [place] [phone] Urea nitrogen [Mass/Vol] 11 mg/dL Normal 9-[address] [facility] Comment on above: Performed By: #### C MP, MG1, CBCDIF ####[facility] [address] [place] [phone] ED PROV NOTEon 05-29-2021 ED PROV NOTE HNO ID: [id number] Author: Shanell Slaughter MD Service: ? Author [...] No radiographic evidence of acute cardiopulmonary disease. Lockstitch Machine Operator: [facility] Transcribe Date/Time: May 29 2021 8:53P [...] vertebrae with counting from the craniocervical junction. Lockstitch Machine Operator: [facility] Transcribe Date/Time: May 29 2021 8:59P [...] vertebrae with counting from the craniocervical junction. Lockstitch Machine Operator: [facility] Transcribe Date/Time: May 29 (more content not included)... Normal [facility] ED PROV NOTE HNO ID: [id number] Author: Flavio Pandya DO Service: Emergency Medicine Author Type: Physician Type: ED Provider Notes Filed: 05/29/2021 7:10 PM Note Text: ED Provider Note Patient Name: Andrew Sifuentes SERVICE DATE: 05/29/21 History Patient presents with: Fall 71 yo male non-smoker, hx of HTN, 2 BEVELER shunts, PE (not on anticoagulation now), asthma, [...] with assistance from bedside clinician. Provider Location: [facility] Facility Patient Location: Outpatient Hospital Physical Exam [...] Flavio Pandya, DO Flavio Pandya, 05/29/211909 Normal [facility] EXCOVD, Flu A/B, RSV (On int erfaces 1102,1120)on 05-29-2021 Influenza A PCR Negative Normal [facility] Comment on above: Performed By: #### C AD #### [facility] [address] [place], [place] [id number] [place] [address] Influenza B PCR Negative Normal [facility] Comment on above: Performed By: #### C AD #### [facility] [address] [place], [place] [address] [place] [address] RSV PCR Negative Normal [facility] Comment on above: Result Comment: This test has been authorized by [facility] under an Emergency Use Authorization (EUA). Performed By: #### C AD #### [facility] [address] [place] [address] SARS-CoV-2 (COVID-19) RNA MEGAN+probe Ql (Unsp spec) UPPER RESPIRATORY TRACT SWAB Normal [facility] Comment on above: Performed By: #### C AD #### [facility] [address] [place], [place] [address] [place] [address] SARS-CoV-2 (COVID-19) RNA MEGAN+probe Ql (Unsp spec) Negative for COVID19 (SARS CoV2) by RT-PCR or equivalent method. Normal Negative for COVID19 (SARS CoV2) by RT-PCR or equivalent method. [facility] Comment on above: Result Comment: This test has been authorized by [facility] under an Emergency Use Authorization (EUA). Performed By: #### C AD #### [facility] [address] [place], [place] [address] [place] [phone] Magnesiumon 05-29-2021 Magnesium [Mass/Vol] 2.2 mg/dL Normal 1.7-2.3 [facility] Comment on above: Performed By: #### C MP, MG1, CBCDIF ####[phone] NT Pro BNPon 05-29-2021 PRO B Natr Peptide 303 pg/mL High <[address] [facility] Comment on above: Performed By: #### N TBNP ####[facility] Mbwjjcwujr0193 [phone] Troponin Ton 05-29-2021 Troponin T <0.010 Normal 0.000-0.[address] [facility] Comment on above: Performed By: #### T NT ####[facility] [address] [place] [phone] Troponin T Unable to assay due to interference from hemolysis. Suggest reorder as clinically indicated. Normal 0.000-0.[address] [facility] Comment on above: Result Comment: Call ed to ED Álvaro at 2129 on 05.29.21 by Sabino Performed By: #### T NT ####[facility] Lnxfrnfstj3606 [phone] XR CHEST 1V FRONTAL PORTon 0 [...] No radiographic evidence of acute cardiopulmonary disease. Lockstitch Machine Operator: OG Transcribe Date/Time: May 29 2021 8:53P Dictated by : ROLY BANGURA MD This examination was interpreted and the report reviewed and electronically signed by: ROLY BANGURA MD on May 29 2021 8:54PM EST [id number] Normal [facility] COMPREHENSIVE PANELon 2020 Albumin [Mass/Vol] 3.9 g/dL Normal 3.4 - 5.0 [facility] Comment on above: Order Comment: PATIE NT FASTING Performed By: #### C MP #### [facility] [address] [place] [address] ALP [Catalytic activity/Vol] 71 U/L Normal 33 - 136 [facility] Comment on above: Order Comment: PATIE NT FASTING Performed By: #### C MP #### [facility] [address] [place] [address] ALT [Catalytic activity/Vol] 19 U/L Normal 10 - 52 [facility] Comment on above: Order Comment: PATIE NT FASTING Result Comment: Nasima ents treated with Sulfasalazine may generate falsely decreased results for ALT. Performed By: #### C MP #### [facility] [address] [place] [address] Anion gap [Moles/Vol] 13 mmol/L Normal 10 - 20 [facility] Comment on above: Order Comment: PATIE NT FASTING Performed By: #### C MP #### [facility] [address] [place] [address] AST [Catalytic activity/Vol] 20 U/L Normal 9 - 39 [facility] Comment on above: Order Comment: PATIE NT FASTING Performed By: #### C MP #### [facility] [address] [place] [address] Bilirubin [Mass/Vol] 0.6 mg/dL Normal 0.0 - 1.2 [facility] Comment on above: Order Comment: PATIE NT FASTING Performed By: #### C MP #### [facility] [address] [place] [address] Calcium [Mass/Vol] 9.0 mg/dL Normal 8.6 - 10.6 [facility] Comment on above: Order Comment: PATIE NT FASTING Performed By: #### C MP #### [facility] [address] [place] [address] Chloride [Moles/Vol] 103 mmol/L Normal 98 - 107 [facility] Comment on above: Order Comment: PATIE NT FASTING Performed By: #### C MP #### [facility] [address] [place] [address] Creatinine [Mass/Vol] 0.94 mg/dL Normal 0.50 - 1.30 [facility] Comment on above: Order Comment: PATIE NT FASTING Performed By: #### C MP #### [facility] [address] [place] [address] GFR- AM. >60 Normal >60 [facility] Comment on above: Order Comment: PATIE NT FASTING Result Comment: CALC ULATIONS OF ESTIMATED GFR ARE PERFORMED USING THE MDRD STUDY EQUATION FOR THE IDMS-TRACEABLE CREATININE METHODS. CLIN CHEM 2007;53:766-72 Performed By: #### C MP #### [facility] [address] [place] [address] GFR-NON AM. >60 Normal >60 [facility] Comment on above: Order Comment: PATIE NT FASTING Performed By: #### C MP #### [facility] [address] [place] [address] Glucose [Mass/Vol] 85 mg/dL Normal 74 - 99 [facility] Comment on above: Order Comment: PATIE NT FASTING Performed By: #### C MP #### [facility] [address] [place] [address] HCO3 (Bld) [Moles/Vol] 30 mmol/L Normal 21 - 32 [facility] Comment on above: Order Comment: PATIE NT FASTING Performed By: #### C MP #### [facility] [address] [place] [address] Potassium [Moles/Vol] 4.1 mmol/L Normal 3.5 - 5.3 [facility] Comment on above: Order Comment: PATIE NT FASTING Performed By: #### C MP #### [facility] [address] [place] [address] Protein [Mass/Vol] 6.6 g/dL Normal 6.4 - 8.2 [facility] Comment on above: Order Comment: PATIE NT FASTING Performed By: #### C MP #### [facility] [address] [place] [address] Sodium [Moles/Vol] 142 mmol/L Normal 136 - 145 [facility] Comment on above: Order Comment: PATIE NT FASTING Performed By: #### C MP #### [facility] [address] [place] [address] Urea nitrogen [Mass/Vol] 14 mg/dL Normal 6 - 23 [facility] Comment on above: Order Comment: PATIE NT FASTING Performed By: #### C MP #### [facility] [address] [place] [address] LIPID PANEL (CORONARY RISK 2 )on 09-03-2020 Cholesterol [Mass/Vol] 210 mg/dL High 0 - 199 [facility] Comment on above: Order Comment: PATIE [...] Performed By: #### L IPID #### [facility] [address] [place] [address] Cholesterol in HDL [Mass/Vol] 50.1 mg/dL Normal [facility] Comment on above: Order Comment: PATIE NT FASTING Result Comment: . AGE VERY LOW LOW NORMAL HIGH 0-19 Y < 35 < 40 40-45 ---- 20-24 Y ---- < 40 >45 ---- >24 Y ---- < 40 40-60 >60 . Performed By: #### L IPID #### [facility] [address] [place] [address] Cholesterol in LDL [Mass/Vol] 130 mg/dL High 0 - 99 [facility] Comment on above: Order Comment: PATIE NT FASTING Result Comment: . NEAR BORD AGE DESIRABLE OPTIMAL HIGH HIGH VERY HIGH 0-19 Y 0 - 109 --- 110-129 >/= 130 ---- 20-24 Y 0 - 119 --- 120-159 >/= 160 ---- >24 Y 0 - 99 100-129 130-159 160-189 >/=190 . Performed By: #### L IPID #### [facility] [address] [place] [address] Cholesterol in VLDL [Mass/Vol] 30 mg/dL Normal 0 - 40 [facility] Comment on above: Order Comment: PATIE NT FASTING Performed By: #### L IPID #### [facility] [address] [place] [address] Cholesterol.total/Chol esterol in HDL [Mass ratio] 4.2 {ratio} Normal [facility] Comment on above: Order Comment: PATIE NT FASTING Result Comment: REF VALUES DESIRABLE < 3.4 HIGH RISK > 5.0 Performed By: #### L IPID #### [facility] [address] [place] [address] Triglyceride [Mass/Vol] 152 mg/dL High 0 - 149 [facility] Comment on above: Order Comment: PATIE [...] Performed By: #### L IPID #### [facility] [address] [place] [address] PROSTATE SPEC.AG,SCREENon PROSTATE SPEC.AG,SCREEN 0.37 ng/mL Normal 0.00 - 4.00 [facility] Comment on above: Order Comment: PATIE NT FASTING Result Comment: The FDA requires that the method used for PSA assay be reported to the physician. Values obtained with different assay methods must not be used interchangeably. This test was performed at [facility] using the Siemens CH4ellOpen Wager PSA method, which is a sandwich immunoassay using chemiluminescence for quantitation. The assay is approved for measurement of prostate-specific antigen (PSA) in serum and may be used in conjunction with a digital rectal examination in men 50 years and older as an aid in detection of prostate cancer. 7-Bsbkg-zxfkufzri inhibitors (e.g. Proscar, Finasteride, Avodart, Dutasteride and Elizabeth) for the treatment of BPH have been shown to lower PSA levels by an average of 50% after 6 months of treatment. Performed By: #### P SAS #### [facility] [address] [place] [address] TSH WITH REFLEX TO FREE T4 I F ABNORMALon 09-03-2020 TSH Qn 0.97 m[IU]/L Normal 0.44 - 3.98 [facility] Comment on above: Order Comment: PATIE NT FASTING Result Comment: TSH testing is performed using different testing methodology at [facility] than at other [facility]. Direct result comparisons should only be made within the same method. Performed By: #### T HYDS #### [facility] [address] [place] [address] CBC AND DIFFERENTIALon 09-02 % AUTOMATED IMMATURE GRAN 0.3 % Normal 0.0 - 0.9 [facility] Comment on above: Order Comment: PATIE NT FASTING Result Comment: [place] t[place] Granulocyte Count (IG) includes promyelocytes, myelocytes and metamyelocytes but does not include bands. Percent differential counts (%) should be interpreted in the context of the absolute cell counts (cells/L). Performed By: #### C BCDF #### [facility] [address] [place] [address] Basophils (Bld) [#/Vol] 0.07 10*3/uL Normal 0.00 - 0.10 [facility] Comment on above: Order Comment: PATIE NT FASTING Result Comment: Auto mated WBC differential has been confirmed by manual smear. Performed By: #### C BCDF #### [facility] [address] [place] [address] Basophils/100 WBC (Bld) 0.9 % Normal 0.0 - 2.0 [facility] Comment on above: Order Comment: PATIE NT FASTING Performed By: #### C BCDF #### [facility] [address] [place] [address] Eosinophils (Bld) [#/Vol] 0.21 10*3/uL Normal 0.00 - 0.70 [facility] Comment on above: Order Comment: PATIE NT FASTING Performed By: #### C BCDF #### [facility] [address] [place] [address] Eosinophils/100 WBC (Bld) 2.8 % Normal 0.0 - 6.0 [facility] Comment on above: Order Comment: PATIE NT FASTING Performed By: #### C BCDF #### [facility] [address] [place] [address] Lymphocytes (Bld) [#/Vol] 2.28 10*3/uL Normal 1.20 - 4.80 [facility] Comment on above: Order Comment: PATIE NT FASTING Performed By: #### C BCDF #### [place] [address] [place] [address] Lymphocytes/100 WBC (Bld) 30.9 % Normal 13.0 - 44.0 [facility] Comment on above: Order Comment: PATIE NT FASTING Performed By: #### C BCDF #### [facility] [address] [place] [address] Monocytes (Bld) [#/Vol] 0.50 10*3/uL Normal 0.10 - 1.00 [facility] Comment on above: Order Comment: PATIE NT FASTING Performed By: #### C BCDF #### [facility] [address] [place] [address] Monocytes/100 WBC (Bld) 6.8 % Normal 2.0 - 10.0 [facility] Comment on above: Order Comment: PATIE NT FASTING Performed By: #### C BCDF #### [facility] [address] [place] [address] Neutrophils (Bld) [#/Vol] 4.29 10*3/uL Normal 1.20 - 7.70 [facility] Comment on above: Order Comment: PATIE NT FASTING Performed By: #### C BCDF #### [facility] [address] [place] [address] Neutrophils/100 WBC (Bld) 58.3 % Normal 40.0 - 80.0 [facility] Comment on above: Order Comment: PATIE NT FASTING Performed By: #### C BCDF #### [facility] [address] [place] [address] Erythrocyte distribution width (RBC) [Ratio] 14.6 % High 11.5 - 14.5 [facility] Comment on above: Order Comment: PATIE NT FASTING Performed By: #### C BCDF #### [facility] [address] [place] [address] Hematocrit (Bld) [Volume fraction] 43.1 % Normal 41.0 - 52.0 [facility] Comment on above: Order Comment: PATIE NT FASTING Performed By: #### C BCDF #### [facility] [address] [place] [address] Hemoglobin (Bld) [Mass/Vol] 13.3 g/dL Low 13.5 - 17.5 [facility] Comment on above: Order Comment: PATIE NT FASTING Performed By: #### C BCDF #### [facility] [address] [place] [address] MCHC (RBC) [Mass/Vol] 30.9 g/dL Low 32.0 - 36.0 [facility] Comment on above: Order Comment: PATIE NT FASTING Performed By: #### C BCDF #### [facility] [address] [place] [address] MCV (RBC) [Entitic vol] 92 fL Normal 80 - 100 [facility] Comment on above: Order Comment: PATIE NT FASTING Performed By: #### C BCDF #### [facility] [address] [place] [address] NUCLEATED RBC 0.0 /100 WBC Normal 0.0-0.0 [facility] Comment on above: Order Comment: PATIE NT FASTING Performed By: #### C BCDF #### [facility] [address] [place] [address] Platelets (Bld) [#/Vol] 267 10*3/uL Normal 150 - 450 [facility] Comment on above: Order Comment: PATIE NT FASTING Performed By: #### C BCDF #### [facility] [address] [place] [address] RBC 4.69 x10E12/L Normal 4.50 - 5.90 [facility] Comment on above: Order Comment: PATIE NT FASTING Performed By: #### C BCDF #### [facility] [address] [place] [address] WBC (Bld) [#/Vol] 7.4 10*3/uL Normal 4.4 - 11.3 [facility] Comment on above: Order Comment: PATIE NT FASTING Performed By: #### C BCDF #### [facility] [address] [place] [address] RED CELL MORPHOLOGYon 2020 CHANELL CELLS Few Normal [facility] Comment on above: Order Comment: PATIE NT FASTING Performed By: #### M ORP2 #### [facility] [address] [place] [address] OVALOCYTES Few Normal [facility] Comment on above: Order Comment: PATIE NT FASTING Performed By: #### M ORP2 #### [facility] [address] [place] [address] POLYCHROMASIA Mild Normal [facility] Comment on above: Order Comment: PATIE NT FASTING Performed By: #### M ORP2 #### [facility] [address] [place] [address] RBC FRAGMENTS Few Normal [facility] Comment on above: Order Comment: PATIE NT FASTING Performed By: #### M ORP2 #### [facility] [address] [place] [address] RBC morphology finding Nom (Bld) See Below Normal [facility] Comment on above: Order Comment: PATIE NT FASTING Performed By: #### M ORP2 #### [facility] [address] [place] [address] No Panel Informationon 01-19 76 1 MP-Cardiolo [...] [place] Work Phone: [email or web address] ?RetrieveTestByDateTime?P [email or web address]=[id number]&Date=1 09-13-2019&Time=15%3a11%3a 03%3a00&TestType=ECG&Site =1&OutputType=PDF&Ext=PDF [facility]iolo gy-[facility] [place] Work Phone: Otheron 11-13-2019 [facility] Complete Blood Count + Diffe rentialon 11-06-2019 Basophils (Bld) [#/Vol] 0.06 {x10E9/L} See Below [facility] Work Phone: Comment on above: Reference Range: 0.0 0 - 0.10 Basophils/100 WBC (Bld) 0.8 % 0.0 - 2.0 [facility] Work Phone: [phone] Eosinophils (Bld) [#/Vol] 0.18 {x10E9/L} See Below [facility] Work Phone: Comment on above: Reference Range: 0.0 0 - 0.70 Eosinophils/100 WBC (Bld) 2.5 % 0.0 - 6.0 [facility] Work Phone: Erythrocyte distribution width (RBC) [Ratio] 13.7 % See Below [facility] Work Phone: Comment on above: Reference Range: 11. 5 - 14.5 Hematocrit (Bld) [Volume fraction] 45.5 % See Below [facility] Work Phone: Comment on above: Reference Range: 41. 0 - 52.0 Hemoglobin (Bld) [Mass/Vol] 14.0 g/dL See Below [facility] Work Phone: Comment on above: Reference Range: 13. 5 - 17.5 Lymphocytes (Bld) [#/Vol] 2.15 {x10E9/L} See Below [facility] Work Phone: Comment on above: Reference Range: 1.2 0 - 4.80 Lymphocytes/100 WBC (Bld) 29.9 % See Below [facility] Work Phone: Comment on above: Reference Range: 13. 0 - 44.0 MCHC (RBC) [Mass/Vol] 30.8 g/dL below low threshold See Below [facility] Work Phone: Comment on above: Reference Range: 32. 0 - 36.0 MCV (RBC) [Entitic vol] 94 fL 80 - 100 [facility] Work Phone: Monocytes (Bld) [#/Vol] 0.49 {x10E9/L} See Below [facility] Work Phone: Comment on above: Reference Range: 0.1 0 - 1.00 Monocytes/100 WBC (Bld) 6.8 % 2.0 - 10.0 [facility] Work Phone: Neutrophils (Bld) [#/Vol] 4.30 {x10E9/L} See Below [facility] Work Phone: Comment on above: Reference Range: 1.2 0 - 7.70 Neutrophils/100 WBC (Bld) 59.9 % See Below [facility] Work Phone: Comment on above: Reference Range: 40. 0 - 80.0 Platelets (Bld) [#/Vol] 270 {x10E9/L} 150 - 450 [facility] Work Phone: RBC (Bld) [#/Vol] 4.85 {x10E12/L} See Below [facility] Work Phone: Comment on above: Reference Range: 4.5 0 - 5.90 WBC (Bld) [#/Vol] 0.0 {/100_WBC} 0.0-0.0 [facility] Work Phone: WBC (Bld) [#/Vol] 7.2 {x10E9/L} 4.4 - 11.3 [facility] Physician [facility] Work Phone: Complete Blood Count + Differential 0.1 % 0.0 - 0.9 [facility]ician [facility] Work Phone: Comment on above: Immature Granulocyte Count (IG) includes promyelocytes, myelocytes and metamyelocytes but does not include bands. Percent differential counts (%) should be interpreted in the context of the absolute cell counts (cells/L). Lipid Panelon 11-06-2019 Cholesterol [Mass/Vol] 181 mg/dL 0 - 199 [facility] Work Phone: Comment on above: [...] dosing. Cholesterol in HDL [Mass/Vol] 52.1 mg/dL [facility] Work Phone: Comment on above: . AGE VERY LOW LOW N ORMAL HIGH 0-19 Y < 35 < 40 40-45 ---- 20-24 Y ---- < 40 >45 ---- >24 Y ---- < 40 40-60 >60. Cholesterol in LDL [Mass/Vol] 97 mg/dL 0 - 99 [facility] Work Phone: Comment on above: . NEAR BORD AGE IZABELLA RABLE OPTIMAL HIGH HIGH VERY HIGH 0-19 Y 0 - 109 --- 110-129 >/= 130 ---- 20-24 Y 0 - 119 --- 120-159 >/= 160 ---- >24 Y 0 - 99 100-129 130-159 160-189 >/=190. Cholesterol.total/Chol esterol in HDL [Mass ratio] 3.5 {ratio} [facility] Work Phone: Comment on above: REF VALUESDESIRABLE < 3.4HIGH RISK > 5.0 Triglyceride [Mass/Vol] 158 mg/dL above high threshold 0 - 149 [facility] Work Phone: Comment on above: . AGE [...] Lipid Panel 32 mg/dL 0 - 40 [facility] Work Phone: Metabolic Panelon 11-06-2019 ALP [Catalytic activity/Vol] 70 U/L 33 - 136 [facility] Work Phone: Anion gap [Moles/Vol] 13 mmol/L 10 - 20 [facility] Work Phone: Bilirubin [Mass/Vol] 0.6 mg/dL 0.0 - 1.2 [facility]ician [facility] Work Phone: Calcium [Mass/Vol] 9.4 mg/dL 8.6 - 10.6 [facility] Work Phone: Chloride [Moles/Vol] 99 mmol/L 98 - 107 [facility] Work Phone: CO2 [Moles/Vol] 30 mmol/L 21 - 32 [facility] Work Phone: Creatinine [Mass/Vol] 0.87 mg/dL See Below [facility] Physician [facility] Work Phone: Comment on above: Reference Range: 0.5 0 - 1.30 Glucose [Mass/Vol] 89 mg/dL 74 - 99 [facility] Work Phone: Potassium [Moles/Vol] 4.3 mmol/L 3.5 - 5.3 [facility] Work Phone: Protein [Mass/Vol] 7.3 g/dL 6.4 - 8.2 [facility] Work Phone: Sodium [Moles/Vol] 138 mmol/L 136 - 145 [facility] Work Phone: Urea nitrogen [Mass/Vol] 14 mg/dL 6 - 23 [facility] Work Phone: Otheron 11-06-2019 Albumin BCP dye [Mass/Vol] 4.4 g/dL 3.4 - 5.0 [facility] Work Phone: ALT With P-5'-P [Catalytic activity/Vol] 11 U/L 10 - 52 [facility] Work Phone: Comment on above: Patients treated wit h Sulfasalazine may generate falsely decreased results for ALT. AST With P-5'-P [Catalytic activity/Vol] 17 U/L 9 - 39 [facility] Work Phone: >60 >60 [facility] Work Phone: Comment on above: CALCULATIONS OF LUZMARIA MATED GFR ARE PERFORMED USING THE MDRD STUDY EQUATION FOR THE IDMS-TRACEABLE CREATININE METHODS. CLIN CHEM 2007;53:766-72 Culture, urine Bacteria identified Cx Nom (U) Mixed Gram Pos & Gram Neg [facility] Work Phone: Bacteria identified Cx Nom (U) Klebsiella pneumoniae sp pneum [facility] Work Phone: Vital Signs Date Time Vital Sign Value Performing Clinician Facility 09-13-2023 11:48-0400 Body height 175.3 cm Rebecca Buck MD Work Phone: [facility] 09-13-2023 11:48-0400 Body mass index (BMI) [Ratio] 25.84 kg/m2 Rebecca Buck MD Work Phone: [facility] 09-13-2023 11:48-0400 Body weight 79.38 kg Rebecca Buck MD Work Phone: [facility] 08-13-2023 09:56-0400 Body height 175.3 cm Rebecca Buck MD Work Phone: [facility] 08-13-2023 09:56-0400 Body mass index (BMI) [Ratio] 25.84 kg/m2 Rebecca Buck MD Work Phone: [facility] 08-13-2023 09:56-0400 Body weight 79.38 kg Rebecca Buck MD Work Phone: [facility] 03-02-2022 18:49-0400 Body temperature 98.01 [degF] Lanette Munguia DO Work Phone: [facility] 03-02-2022 18:49-0400 Diastolic blood pressure 72 mm[Hg] [facility] 03-02-2022 18:49-0400 Heart rate 94 /min [facility] 03-02-2022 18:49-0400 Respiratory rate 18 /min [facility] 03-02-2022 18:49-0400 SaO2% (BldA) [Mass fraction] 98 % Lanette Munguia DO Work Phone: [facility] 03-02-2022 18:49-0400 Systolic blood pressure 104 mm[Hg] Lanette Munguia DO Work Phone: [facility] 03-02-2022 11:55-0400 Body height 175.3 cm Lanette Munguia DO Work Phone: [facility] 03-02-2022 11:55-0400 Body mass index (BMI) [Ratio] 25.84 kg/m2 Lanette Munguia DO Work Phone: [facility] 03-02-2022 11:55-0400 Body weight 79.38 kg Lanette Munguia DO Work Phone: [facility] 12-22-2021 02:08-0400 Diastolic blood pressure 67 mm[Hg] Sharon Olivia MD Work Phone: [facility] 12-22-2021 02:08-0400 Heart rate 77 /min [facility] 12-22-2021 02:08-0400 Respiratory rate 16 /min [facility] 12-22-2021 02:08-0400 SaO2% (BldA) [Mass fraction] 96 % Sharon Olivia MD Work Phone: [facility] 12-22-2021 02:08-0400 Systolic blood pressure 108 mm[Hg] Sharon Olivia MD Work Phone: [facility] 12-21-2021 23:52-0400 Body height 175.3 cm Sharon Olivia MD Work Phone: [facility] 12-21-2021 23:52-0400 Body mass index (BMI) [Ratio] 25.84 kg/m2 Sharon Olivia MD Work Phone: [facility] 12-21-2021 23:52-0400 Body temperature 97.9 [degF] Sharon Olivia MD Work Phone: [facility] 12-21-2021 23:52-0400 Body weight 79.38 kg Sharon Olivia MD Work Phone: [facility] 11-01-2021 08:41-0400 Diastolic blood pressure 77 mm[Hg] Dante Kim MD Work Phone: [facility] 11-01-2021 08:41-0400 Heart rate 75 /min Dante Kim MD Work Phone: [facility] 11-01-2021 08:41-0400 Respiratory rate 16 /min Dante Kim MD Work Phone: [facility] 11-01-2021 08:41-0400 SaO2% (BldA) [Mass fraction] 97 % Dante Kim MD Work Phone: [facility] 11-01-2021 08:41-0400 Systolic blood pressure 112 mm[Hg] Dante Kim MD Work Phone: [facility] 10-31-2021 19:13-0400 Body height 177.8 cm Dante Kim MD Work Phone: [facility] 10-31-2021 19:13-0400 Body mass index (BMI) [Ratio] 27.26 kg/m2 Dante Kim MD Work Phone: [facility] 10-31-2021 19:13-0400 Body temperature 98.49 [degF] Dante Kim MD Work Phone: [facility] 10-31-2021 19:13-0400 Body weight 86.18 kg Dante Kim MD Work Phone: [facility] 10-29-2021 07:38-0400 Body temperature 97.81 [degF] Lisa Miguel Angel DO Work Phone: [facility] 10-29-2021 07:38-0400 Diastolic blood pressure 79 mm[Hg] Lisa Miguel Angel DO Work Phone: [facility] 10-29-2021 07:38-0400 Heart rate 80 /min Lisa Miguel Angel DO Work Phone: [facility] 10-29-2021 07:38-0400 Respiratory rate 18 /min Lisa Miguel Angel DO Work Phone: [facility] 10-29-2021 07:38-0400 SaO2% (BldA) [Mass fraction] 96 % Lisa Miguel Angel DO Work Phone: [facility] 10-29-2021 07:38-0400 Systolic blood pressure 123 mm[Hg] Lisa Miguel Angel DO Work Phone: [facility] 10-25-2021 13:55-0400 Body height 170.2 cm Lisa Miguel Angel DO Work Phone: [facility] 10-21-2021 00:57-0400 Body mass index (BMI) [Ratio] 37.58 kg/m2 Lisa Miguel Angel DO Work Phone: [facility] 10-21-2021 00:57-0400 Body weight 108.86 kg Lisa Miguel Angel DO Work Phone: [facility] 07-13-2020 13:21-0500 BMI (Body Mass Index) 40.47 kg/m2 Monika Staley [facility] Work Phone: 07-13-2020 13:21-0500 Body Temperature 98 [degF] Monika Staley [facility] Work Phone: 07-13-2020 13:21-0500 [...] Source: 04-13-2020 15:33-0500 0 1 Wing Ritter [facility] Work Phone: Comment on above: Pain Scale 01-20-2020 16:39-0400 Body height 175.26 cm Monika Staley MD [facility] [address] [place] Work Phone: 01-20-2020 16:39-0400 Body mass index (BMI) [Ratio] 39.28 kg/m2 Monika Staley MD CZ-Jsxgncnzsj-Ieq russ 140 [place] Work Phone: 01-20-2020 16:39-0400 Body surface area Derived from formula 2.33 m2 Monika Staley MD RN-Wvjujrcomh-Chh russ 140 [place] Work Phone: 01-20-2020 16:39-0400 Body weight 120.66 kg Monika Staley MD [facility] [address] [place] Work Phone: 01-20-2020 16:39-0400 Diastolic blood pressure 84 mm[Hg] Monika Staley MD TB-Fzuiasjnqi-Mme russ [address] [place] Work Phone: Comment on above: Location: [facility]; Position: Sitting 01-20-2020 16:39-0400 Heart rate 80 /min Monika Staley MD, [facility] [address] [place] Work Phone: 01-20-2020 16:39-0400 SaO2% (BldA) [Mass fraction] 100 % Monika Staley MD WL-Ihqheciata-Hzl russ [address] [place] Work Phone: Comment on above: Source: 01-20-2020 16:39-0400 Systolic blood pressure 144 mm[Hg] Monika Staley MD FY-Rlkqtbxwae-Atv russ 140 [place] Work Phone: Comment on [...] Start: 03-16-2025 ambulatory Carlos Cavazos OLS Faci lity:[facility] Start: 03-13-2025 ambulatory Carlos Quickros OLS Faci lity:[facility] Start: [facility] Start: 03-11-2025 ambulatory Carlos Quickros OLS Faci lity:[facility] Start: 03-09-2025 ambulatory Mahaveer kka flash OLS Facility:[facility] Start: 03-05-2025 ambulatory [facility] Start: 03-02-2025 ambulatory Peter Katsaros OLS Faci lity:[facility] Start: 02-26-2025 ambulatory Mahaveer kka flash OLS Facility:[facility] Start: 02-23-2025 [facility] Start: 02-19-2025 ambulatory Karon muellera OLS Facility:[facility] Start: 02-16-2025 End: 02-16-2025 ambulatory Karon Farmera OLS Facility:[facility] Start: 02-12-2025 [facility] Start: 02-12-2025 End: 02-12-2025 ambulatory Karon Farmera OLS Facility:[facility] Start: 02-09-2025 Registered Referred Carlos Cavazos [facility] [employer] [facility] Start: 02-09-2025 ambulatory Carlos Cavazos OLS Faci lity:[facility] Start: 02-05-2025 [facility] Start: 02-05-2025 End: 02-05-2025 ambulatory Karon Farmera OLS Facility:[facility] Start: 02-02-2025 [facility] Start: 02-02-2025 End: 02-02-2025 ambulatory Karon Farmera OLS Facility:[facility] Start: 01-29-2025 [facility] Start: 01-29-2025 End: 01-29-2025 ambulatory Karon Farmera OLS Facility:[facility] Start: 01-26-2025 [facility] Start: 01-26-2025 End: 01-26-2025 ambulatory Karon Delacruzlla OLS Facility:[facility] Start: 01-22-2025 [facility] Start: 01-22-2025 End: 01-22-2025 ambulatory Carlaavenoe Delacruzlla OLS Facility:[facility] Start: 01-19-2025 Registered Referred Carlos Cavazos - [facility] Start: 01-19-2025 End: 01-19-2025 ambulatory Carlos Cavazos OLS Facility:[facility] Start: 01-15-2025 Registered Referred Karon casillas MD [facility] Start: 01-15-2025 End: 01-15-2025 ambulatory [facility] OLS Facility:[facility] Start: 01-12-2025 Registered Referred Karon casillas MD [facility] Start: 01-12-2025 End: 01-12-2025 ambulatory [facility] OLS Facility:[facility] Start: 01-08-2025 Registered Referred Karon casillas MD -[facility] Start: 01-08-2025 End: 01-08-2025 ambulatory [facility] OLS Facility:[facility] Start: 01-06-2025 Registered Referred Karon casillas MD -[facility] Start: 01-06-2025 End: 01-06-2025 ambulatory [facility] OLS Facility:[facility] Start: 01-01-2025 End: 01-01-[address] Monika Staley MD Work Phone: [facility] Start: 01-01-2025 End: 01-01-2025 Departed Referred Karon Corrales MD -[facility] Start: 01-01-2025 Registered Referred Karon casillas MD -[facility] Start: 01-01-2025 End: 01-01-2025 [facility] Start: 12-29-2024 Registered Referred Carlos Cavazos - [facility] Start: 12-29-2024 End: 12-29-2024 ambulatory Carlos Cavazos OLS Facility:[facility] Start: 12-26-2024 End: 12-26-[address] Monika Staley MD Work Phone: [facility] Start: 12-26-2024 End: 12-26-2024 Departed Referred Karon Corrales MD -[facility] Start: 12-26-2024 Registered Referred Karon casillas MD -[facility] Start: 12-26-2024 End: 12-26-2024 ambulatory Mahaveer Mukkamalla OLS Facility:[facility] Start: 12-25-2024 Registered Referred Karon casillas MD [facility] Start: 12-24-2024 End: 12-25-2024 ambulatory Mahaveer Mukkamalla OLS Facility:[facility] Start: 12-24-2024 Registered Referred Carlos Lópezsaros - [facility] Start: 12-22-2024 ambulatory [facility] O[facility] Facility:[facility] Start: 12-22-2024 Registered Referred Karon casillas MD -[facility] Start: 12-18-2024 Registered Referred Karon casillas MD -[facility] Start: 12-18-2024 End: 12-18-2024 ambulatory Carlaaveer Princeamalla OLS Facility:[facility] Start: 12-15-2024 [facility] Start: 12-15-2024 Registered Referred Karon casillas MD [facility] Start: 12-11-2024 Registered Referred Carlos Cavazos - [facility] Start: 12-11-2024 End: 12-11-2024 ambulatory Carlos Maribelkameron OLS Facility:[facility] Start: 12-08-2024 Registered Referred Karon casillas MD -[facility] Start: 12-08-2024 End: 12-08-2024 ambulatory Mahaveer Mukkamalla OLS Facility:[facility] Start: 12-04-2024 Registered Referred Karon casillas MD -[facility] Start: 12-04-2024 End: 12-04-2024 ambulatory Mahaveer kkamalla OLS Facility:[facility] Start: 12-02-2024 [facility] Start: 12-02-2024 Registered Referred Karon casillas MD -[facility] Start: 12-01-2024 ambulatory Carlos NOVAK Faci lity:[facility] Start: 12-01-2024 Registered Referred Carlos Cavazos - [facility] Start: 11-28-2024 Registered Referred Carlos Cavazos - [facility] Start: 11-28-2024 End: 11-28-2024 ambulatory Carlos Cavazos OLS Facility:[facility] Start: 11-27-2024 Registered Referred Karon casillas MD -[facility] Start: 11-27-2024 End: 11-27-2024 ambulatory Karon inga OLS Facility:[facility] Start: 11-24-[address] [facility] [facility] Start: 11-24-2024 Registered Referred Karon casillas MD -[facility] Start: 11-20-2024 Registered Referred Karon casillas MD -[facility] Start: 11-20-2024 End: 11-20-2024 ambulatory Karon NOVAK Facility:[facility] Start: 11-17-2024 ambulatory Shiela Luís Facili ty:[facility] Start: 11-17-2024 Registered Referred Karon casillas MD -[facility] Start: 11-13-2024 ambulatory Shiela Luís Facili ty:[facility] Start: 11-13-2024 Registered Referred Karon casillas MD -[facility] Start: 11-10-2024 [facility] Start: 11-10-2024 Registered Referred Karon casillas MD -[facility] Start: 11-06-2024 Registered Referred Karon casillas MD -[facility] Start: 11-06-2024 End: 11-06-2024 ambulatory Karon Corrales OLS Facility:[facility] Start: 11-03-2024 End: 11-03-[address] Monika Staley MD Work Phone: -[facility] [employer] Start: 11-03-2024 End: 11-03-2024 Departed Referred Carlos Maribelkameron [facility] Start: 11-03-2024 Registered Referred Carlos Maribelkameron - [facility] Start: 11-03-2024 End: 11-03-2024 ambulatory Carlos Cavazos OLS Facility:[facility] Start: 10-30-2024 End: 10-30-[address] Monika Staley MD Work Phone: [facility] [employer] Start: 10-30-2024 End: 10-30-2024 Departed Referred Karon Corrales MD [facility] Start: 10-30-2024 Registered Referred Karon casillas MD -[facility] [employer] Start: 10-30-2024 End: 10-30-2024 ambulatory Monika Staley Facility:[facility] Start: 10-27-2024 Registered Referred Karon casillas MD -[facility] [employer] Start: 10-27-2024 End: 10-27-2024 ambulatory Karon NOVAK Facility:[facility] Start: 10-23-2024 Registered Referred Karon casillas MD -[facility] [employer] Start: 10-23-2024 End: 10-23-2024 ambulatory Monika Staley Facility:[facility] Start: 10-20-2024 End: 10-20-[address] Monika Staley MD Work Phone: [facility] [employer] Start: 10-20-2024 End: 10-20-2024 Departed Referred Kraon Corrales MD -[facility] Start: 10-20-2024 Registered Referred Karon casillas MD -[facility] [employer] Start: 10-20-2024 End: 10-20-2024 ambulatory Karon Corrales OLS Facility:[facility] Start: 10-16-2024 ambulatory Monika Horner Luís Facili ty:[facility] Start: 10-16-2024 Registered Referred Karon casillas MD -[facility] Start: 10-13-2024 ambulatory Carlos Cavazos OLS Faci lity:[facility] Start: 10-13-2024 Registered Referred Carlos Cavazos - [facility] Start: 10-09-2024 ambulatory Shiela Luís Facili ty:[facility] Start: 10-09-2024 Registered Referred Karon casillas MD -[facility] Start: 10-06-2024 ambulatory Carlos Cavazos OLS Faci lity:[facility] Start: 10-06-2024 Registered Referred Carlos Cavazos - [facility] Start: 10-02-2024 ambulatory Shiela Luís Facili ty:[facility] Start: 10-02-2024 Registered Referred Karon casillas MD -[facility] Start: 09-30-2024 End: 09-30-[address] Monika Staley MD Work Phone: [facility] Work Phone: Start: 09-30-2024 End: 09-30-2024 Departed Referred Karon Corrales MD [facility] Start: 09-30-2024 Registered Referred Karon casillas MD -[facility] Start: 09-30-2024 End: 09-30-2024 ambulatory Karon NOVAK Facility:[facility] Start: 09-25-2024 ambulatory Karon vidales OLS Facility:[facility] Start: 09-25-2024 Registered [facility] Start: 09-22-2024 End: 09-22-[address] Monika Staley MD Work Phone: [facility] [employer] Start: 09-22-2024 End: 09-22-2024 Departed Referred Karon Corrales MD -[facility] Start: 09-22-2024 Registered Referred Karon casillas MD -[facility] Start: 09-22-2024 End: 09-22-2024 ambulatory Karon NOVAK Facility:[facility] Start: 09-18-2024 End: 09-18-[address] Monika Staley MD Work Phone: [facility] Start: 09-18-2024 End: 09-18-2024 Departed Referred Karon Corrales MD -[facility] Start: 09-18-2024 Registered Referred Karon casillas MD -[facility] Start: 09-18-2024 End: 09-18-2024 ambulatory Karon Corrlaes OLS Facility:[facility] Start: 09-15-2024 End: 09-15-[address] Monika Staley MD Work Phone: [facility] Work Phone: Start: 09-15-2024 End: 09-15-2024 Departed Referred Carlos Cavazos -[facility] Start: 09-15-2024 Registered Referred Carlos Cavazos - [facility] Start: 09-15-2024 End: 09-15-2024 ambulatory Carlos Cavazos OLS Facility:[facility] Start: 09-11-2024 ambulatory Karon vidales OLS Facility:[facility] Start: 09-11-2024 Registered Referred Karon casillas MD -[facility] [employer] Start: 09-08-2024 End: 09-08-[address] Monika Staley MD Work Phone: [facility] Work Phone: Start: 09-08-2024 End: 09-08-2024 Departed Referred Karon Corrales MD -[facility] Start: 09-08-2024 Registered Referred Karon casillas MD -[facility] Start: 09-08-2024 End: 09-08-2024 ambulatory Karon NOVAK Facility:[facility] Start: 09-04-2024 End: 09-04-2024 Departed Referred Carlos Maribelsaros -[facility] Start: 09-04-2024 Registered Referred Carlos Maribelsaros - [facility] Start: 09-04-2024 End: 09-04-2024 ambulatory Carlos NOVAK Facility:[facility] Start: 09-01-2024 End: 09-01-[address] Monika Staley MD Work Phone: [facility] Work Phone: Start: 09-01-2024 End: 09-01-2024 Departed Referred Carlos Lópezsaros -[facility] Start: 09-01-2024 Registered Referred Carlos Maribelsaros - [facility] Start: 09-01-2024 End: 09-01-2024 ambulatory Carlos NOVAK Facility:[facility] Start: 08-28-2024 End: 08-28-[address] Monika Staley MD Work Phone: [facility] Work Phone: Start: 08-28-2024 End: 08-28-2024 Departed Referred Carlos Lópezsaros -[facility] Start: 08-28-2024 Registered Referred Carlos Lópezsaros - [facility] Start: 08-28-2024 End: 08-28-2024 ambulatory Carlos NOVAK Facility:[facility] Start: 08-25-2024 End: 08-25-[address] Monika Staley MD Work Phone: [facility] Work Phone: Start: 08-25-2024 End: 08-25-2024 Departed Referred Karon Corrales MD -[facility] Start: 08-25-2024 Registered Referred Karon casillas MD -[facility] Start: 08-25-2024 End: 08-25-2024 ambulatory Carlaamber Corrales OLS Facility:[facility] Start: 08-21-2024 End: 08-21-[address] Monika Staley MD Work Phone: [facility] Work Phone: Start: 08-21-2024 End: 08-21-2024 Departed Referred Karon Corrales MD -[facility] Start: 08-21-2024 Registered Referred Karon casillas MD -[facility] Start: 08-21-2024 End: 08-21-2024 ambulatory Carlaamber NOVAK Facility:[facility] Start: 08-18-2024 End: 08-18-[address] Monika Staley MD Work Phone: [facility] Work Phone: Start: 08-18-2024 End: 08-18-2024 Departed Referred Karon Corrales MD -[facility] Start: 08-18-2024 Registered Referred Karon casillas MD -[facility] [employer] Start: 08-18-2024 End: 08-18-2024 ambulatory Carlaamber Corrales OLS Facility:[facility] Start: 08-14-2024 End: 08-14-[address] Monika Staley MD Work Phone: [facility] Work Phone: Start: 08-14-2024 End: 08-14-2024 Departed Referred Karon Corrales MD -[facility] Start: 08-14-2024 Registered Referred Karon casillas MD -[facility] Start: 08-14-2024 End: 08-14-2024 ambulatory Karon NOVAK Facility:[facility] Start: 08-11-2024 End: 08-11-2024 Departed Referred Karon Corrales MD -[facility] Start: 08-11-2024 Registered Referred Karon casillas MD -[facility] Start: 08-11-2024 End: 08-11-2024 ambulatory Karon NOVAK Facility:[facility] Start: 08-07-2024 End: 08-07-2024 Departed Referred Carlos Lópezsaviri -[facility] Start: 08-07-2024 Registered Referred Carlos Lópezsaviri - [facility] Start: 08-07-2024 End: 08-07-2024 ambulatory Carlos Cavazos OLS Facility:[facility] Start: 08-04-2024 End: 08-04-[address] Monika Staley MD Work Phone: [facility] Work Phone: Start: 08-04-2024 End: 08-04-2024 Departed Referred Carlos Lópezsaviri -[facility] Start: 08-04-2024 Registered Referred Carlos Lópezsaros - [facility] Start: 08-04-2024 End: 08-04-2024 ambulatory Carlos NOVAK Facility:[facility] Start: 07-31-2024 End: 07-31-[address] Monika Staley MD Work Phone: [facility] Work Phone: Start: 07-31-2024 End: 07-31-2024 Departed Referred Karon Corrales MD -[facility] Start: 07-31-2024 Registered Referred Karon casillas MD -[facility] Start: 07-31-2024 End: 07-31-2024 ambulatory Karon NOVAK Facility:[facility] Start: 07-28-2024 End: 07-28-[address] Monika Staley MD Work Phone: [facility] Work Phone: Start: 07-28-2024 End: 07-28-2024 Departed Referred Karon Corrales MD -[facility] Start: 07-28-2024 Registered Referred Karon casillas MD -[facility] Start: 07-28-2024 End: 07-28-2024 ambulatory Karon NOVAK Facility:[facility] Start: 07-25-2024 End: 07-25-[address] Monika Staley MD Work Phone: [facility] Work Phone: Start: 07-25-2024 End: 07-25-2024 Departed Referred Carlos Cavazos -[facility] [employer] Start: 07-25-2024 Registered Referred Carlos Reeder [facility] Start: 07-24-2024 End: 07-25-[address] Monika Staley MD Work Phone: [facility] Work Phone: Start: 07-24-2024 End: 07-24-2024 Departed Referred Karon Corrales MD -[facility] Start: 07-24-2024 Registered Referred Karon casillas MD -[facility] Start: 07-24-2024 End: 07-24-2024 ambulatory Karon NOVAK Facility:[facility] Start: 07-21-2024 End: 07-21-[address] Monika Staley MD Work Phone: [facility] Work Phone: Start: 07-21-2024 End: 07-21-2024 Departed Referred Karon Corrales MD -[facility] Start: 07-21-2024 Registered Referred Karon casillas MD -[facility] Start: 07-21-2024 End: 07-21-2024 ambulatory Karon NOVAK Facility:[facility] Start: 07-17-2024 End: 07-17-[address] Monika Staley MD Work Phone: [facility] Work Phone: Start: 07-17-2024 End: 07-17-2024 Departed Referred Karon Corrales MD -[facility] Start: 07-17-2024 Registered Referred Karon casillas MD -[facility] Start: 07-17-2024 End: 07-17-2024 ambulatory Karon NOVAK Facility:[facility] Start: 07-14-2024 End: 07-14-[address] Monika Staley MD Work Phone: [facility] Work Phone: Start: 07-14-2024 End: 07-14-2024 Departed Referred Carlos Cavazos -[facility] Start: 07-14-2024 Registered Referred Carlos Lópezsaros - [facility] Start: 07-14-2024 End: 07-14-2024 ambulatory Carlos Cavazos OLS Facility:[facility] Start: 07-11-2024 End: 07-11-[address] Monika Staley MD Work Phone: [facility] Work Phone: Start: 07-11-2024 End: 07-11-2024 Departed Referred Carlos Lópezsaros -[facility] Start: 07-11-2024 Registered Referred Carlos Lópezsaros - [facility] Start: 07-11-2024 End: 07-11-2024 ambulatory Carlos Cavazos OLS Facility:[facility] Start: 07-07-2024 End: 07-07-[address] Monika Staley MD Work Phone: [facility] Work Phone: Start: 07-07-2024 End: 07-07-2024 Departed Referred Karon Corrales MD -[facility] Start: 07-07-2024 [facility] Start: 07-07-2024 End: 07-07-2024 ambulatory Karon NOVAK Facility:[facility] Start: 07-03-2024 End: 07-03-[address] Monika Staley MD Work Phone: [facility] Work Phone: Start: 07-03-2024 End: 07-03-2024 Departed Referred Kvng Crisostomo MD -[facility] Start: 07-03-2024 Registered Referred Kvng Crisostomo MD -[facility] Start: 07-03-2024 End: 07-03-2024 ambulatory Kvng NOVAK Facility:[facility] Start: 06-30-2024 End: 06-30-[address] Monika Staley MD Work Phone: [facility] Work Phone: Start: 06-30-2024 End: 06-30-2024 Departed Referred Kvng Crisostomo MD -[facility] Start: 06-30-2024 Registered Referred Kvng Crisostomo MD -[facility] Start: 06-30-2024 End: 06-30-2024 ambulatory Kvng NOVAK Facility:[facility] Start: 06-26-2024 ambulatory Kvng NOVAK Fac ility:[facility] Start: 06-26-2024 Registered Referred Kvng Crisostomo MD -[facility] Start: 06-23-2024 End: 06-23-[address] Monika Staley MD Work Phone: [facility] Work Phone: Start: 06-23-2024 End: 06-23-2024 Departed Referred Carlos [facility] [employer] Start: 06-23-2024 Registered Referred Carlos Cavazos - [facility] Start: 06-23-2024 End: 06-23-2024 ambulatory Carlos NOVAK Facility:[facility] Start: 06-19-2024 End: 06-19-[address] Monika Staley MD Work Phone: [facility] Work Phone: Start: 06-19-2024 End: 06-19-2024 Departed Referred Kvng Crisostomo MD -[facility] Start: 06-19-2024 Registered Referred Kvng Crisostomo MD -[facility] Start: 06-19-2024 End: 06-19-2024 ambulatory Monika Staley Facility:[facility] Start: 06-16-2024 End: 06-16-[address] Monika Staley MD Work Phone: [facility] Work Phone: Start: 06-16-2024 End: 06-16-2024 Departed Referred Kvng Crisostomo MD -[facility] [employer] Start: 06-16-2024 Registered Referred Kvng Crisostomo MD -[facility] [employer] Start: 06-16-2024 End: 06-16-2024 ambulatory Monika Staley Facility:[facility] Start: 06-12-2024 End: 06-12-[address] Monika Staley MD Work Phone: [facility] Work Phone: Start: 06-12-2024 End: 06-12-2024 Departed Referred Kvng Crisostomo MD -[facility] [employer] [employer] Start: 06-12-2024 Registered Referred Kvng Crisostomo MD -[facility] [employer] Start: 06-12-2024 End: 06-12-2024 ambulatory Kvng NOVAK Facility:[facility] Start: 06-09-2024 End: 06-09-[address] Monika Staley MD Work Phone: [facility] Work Phone: Start: 06-09-2024 End: 06-09-2024 Departed Referred Carlos Cavazos -[facility] Start: 06-09-2024 Registered Referred Carlos Cavazos - [facility] Start: 06-09-2024 End: 06-09-2024 ambulatory Monika Staley Facility:[facility] Start: 06-05-2024 End: 06-05-[address] Monika Staley MD Work Phone: [facility] Work Phone: Start: 06-05-2024 End: 06-05-2024 Departed Referred Kvng Crisostomo MD -[facility] [employer] [employer] Start: 06-05-2024 End: 06-05-2024 ambulatory Kvng NOVAK Facility:[facility] Start: 06-02-2024 End: 06-02-[address] Monika Staley MD Work Phone: [facility] Work Phone: Start: 06-02-2024 End: 06-02-2024 Departed Referred Kvng Crisostomo MD -[facility] Start: 06-02-2024 Registered Referred Kvng Crisostomo MD -[facility] Start: 06-02-2024 End: 06-02-2024 ambulatory Kvng NOVAK Facility:[facility] Start: 05-29-2024 End: 05-29-[address] Monika Staley MD Work Phone: [facility] Work Phone: Start: 05-29-2024 End: 05-29-2024 Departed Referred Kvng Crisostomo MD -[facility] Start: 05-29-2024 Registered Referred Kvng Crisostomo MD -[facility] Start: 05-29-2024 End: 05-29-2024 ambulatory Kvng NOVAK Facility:[facility] Start: 05-26-2024 End: 05-26-[address] Monika Staley MD Work Phone: [facility] Work Phone: Start: 05-26-2024 End: 05-26-2024 Departed Referred Carlos Cavazos -[facility] Start: 05-26-2024 Registered Referred Carlos Cavazos - [facility] Start: 05-26-2024 End: 05-26-2024 ambulatory Carlos NOVAK Facility:[facility] Start: 05-22-2024 ambulatory Kvng NOVAK Fac ility:[facility] Start: 05-22-2024 [facility] Start: 05-20-2024 End: 05-20-2024 Departed [facility] Start: 05-19-2024 End: 05-20-2024 ambulatory Kvng NOVAK Facility:[facility] Start: 05-19-2024 Registered [facility] Start: 05-15-2024 End: 05-15-2024 Departed Ref[facility] Start: 05-15-2024 End: 05-15-2024 ambulatory Kvng NOVAK Facility:[facility] Start: 05-12-2024 End: 05-12-2024 [facility] Start: 05-12-2024 End: 05-12-2024 ambulatory Carlos ONVAK Facility:[facility] Start: 05-09-2024 End: 05-09-2024 [facility]ed [facility] Start: 05-09-2024 End: 05-09-2024 ambulatory Kvng NOVAK Facility:[facility] Start: 05-08-2024 End: 05-08-2024 Departed Referred Babbaljeet Crisostomo MD -[facility] Start: 05-08-2024 End: 05-08-2024 ambulatory Elizabethmilton Andressa NOVAK Facility:[facility] Start: 05-05-2024 End: 05-05-2024 Departed Referred Kvng Crisostomo MD -[facility] Start: 05-05-2024 End: 05-05-2024 ambulatory Kvng NOVAK Facility:[facility] Start: 05-01-2024 End: 05-01-2024 Departed Referred Kvng Crisostomo MD -[facility] Start: 05-01-2024 End: 05-01-2024 ambulatory Kvng NOVAK Facility:[facility] Start: 04-28-2024 End: 04-28-2024 Departed Referred Carlos Cavazos -[facility] Start: 04-28-2024 End: 04-28-2024 ambulatory Carlos NOVAK Facility:[facility] Start: 04-24-2024 End: 04-24-2024 Departed Referred Kvng Crisostomo MD -[facility] Start: 04-24-2024 End: 04-24-2024 ambulatory Vicentesigifredokarolmilton Andressa NOVAK Facility:[facility] Start: 04-21-2024 End: 04-21-2024 Departed Referred Carlos Cavazos -[facility] Start: 04-21-2024 End: 04-21-2024 ambulatory Carlos NOVAK Facility:[facility] Start: 04-17-2024 ambulatory Vicenterocio Andressa NOVAK Fac ility:[facility] Start: 04-17-2024 Registered Referred Kvng Crisostomo MD -[facility] Start: 04-14-2024 ambulatory Vicenterocio Andressa NOVAK Fac ility:[facility] Start: 04-14-2024 Registered Referred Kvng Crisostomo MD -[facility] Start: 04-10-2024 End: 04-10-2024 Departed Referred Kvng Crisostomo MD -[facility] Start: 04-10-2024 End: 04-10-2024 ambulatory Kvng Jonesur OLS Facility:[facility] Start: 04-07-2024 End: 04-07-2024 Departed Referred Carlos Cavazos -[facility] Start: 04-07-2024 End: 04-07-2024 ambulatory Carlos NOVAK Facility:[facility] Start: 04-04-2024 ambulatory Avisgerson Andressa NOVAK Fac ility:[facility] Start: 04-04-2024 Registered Referred Kvng Crisostomo MD -[facility] Start: 03-31-2024 End: 03-31-2024 Departed Referred Carlos Cavazos -[facility] Start: 03-31-2024 End: 03-31-2024 ambulatory Carlos NOVAK Facility:[facility] Start: 03-27-2024 End: 03-27-2024 Departed Referred [facility] Start: 03-27-2024 End: 03-27-2024 ambulatory [facility] Facility[facility] Start: 03-24-2024 End: 03-24-2024 Departed Referred Kvng Crisostomo MD -[facility] Start: 03-24-2024 End: 03-24-2024 ambulatory Kvng NOVAK Facility:[facility] Start: 03-20-2024 End: 03-20-2024 Departed Referred [facility] Start: 03-20-2024 End: 03-20-2024 ambulatory [facility] Facility[facility] Start: 03-19-2024 End: 03-19-2024 Departed Referred Kvng Crisostomo MD -[facility] Start: 03-19-2024 End: 03-19-2024 ambulatory Kvng NOVAK Facility:[facility] Start: 03-18-2024 End: 03-18-2024 Departed Referred [facility] Start: 03-17-2024 End: 03-17-2024 Departed Referred [facility] Start: 03-14-2024 End: 03-14-2024 Departed Referred Carlos Cavazos [facility] Start: 03-13-2024 End: 03-13-2024 Departed Referred [facility] Start: 09-13-2023 End: 09-13-[address] [facility] [place] Start: 09-13-2023 End: 09-13-2023 Office outpatient visit 25 minutes Rebecca Buck MD Work Phone: [facility] Comment on above: Left flank pain (Christina magui Dx); BPH with urinary obstruction; History of kidney stones Start: 09-06-2023 End: 09-07-[address] [facility] [place] Start: 09-06-2023 End: 09-06-2023 Subsequent hospital visit by physician Rebecca Buck MD Work Phone: [facility] Imaging Comment on above: Left flank pain; Calculus of ureter Start: 08-31-2023 [facility] Start: 08-31-2023 [facility] encounter [facility] Start: 08-21-2023 Telephone encounter Rebecca Buck MD Work Phone: [facility] Clinical Communication Comment on above: CT appt Boaz advice Start: 08-21-2023 Registered Referred [facility] Start: 08-13-2023 End: 08-13-[address] [facility] [place] Start: 08-13-2023 End: 08-13-2023 Office outpatient new 45 minutes Rebecca Buck MD Work Phone: [facility] Comment on above: Left flank pain (Christina magui Dx); Calculus of ureter; Disease of prostate; BPH with urinary obstruction Start: 08-03-2023 End: 08-03-2023 ambulatory [facility] Work Phone: Start: 08-03-2023 End: 08-03-2023 Departed Referred [facility] Start: 07-20-2023 End: 07-20-2023 ambulatory [facility] Work Phone: Start: 07-20-2023 End: 07-20-2023 Departed Referred [facility] Start: 07-20-2023 Registered Referred [facility] Start: 07-18-2023 End: 07-18-2023 ambulatory [facility] Work Phone: Start: 07-18-2023 End: 07-18-2023 [facility] Start: 07-18-2023 [facility] Start: 07-16-2023 End: 07-16-2023 ambulatory [facility] Work Phone: Start: 07-16-2023 End: 07-16-2023 [facility] Start: 07-16-2023 Registered Referred [facility] Start: 07-13-2023 End: 07-13-2023 ambulatory [facility] Work Phone: Start: 07-13-2023 End: 07-13-2023 [facility] Start: 07-13-2023 Registered Referred [facility] Start: 07-12-2023 End: 07-12-2023 ambulatory [facility] Work Phone: Start: 07-12-2023 End: 07-12-2023 [facility] Start: 07-12-2023 Registered Referred [facility] Start: 07-05-2023 End: 07-05-2023 ambulatory [facility] Work Phone: Start: 07-05-2023 End: 07-05-2023 [facility] Start: 07-05-2023 [facility] Start: 07-02-2023 [facility] Start: 06-28-2023 End: 06-28-2023 ambulatory [facility] Work Phone: Start: 06-28-2023 End: 06-28-2023 [facility] Start[facility] 06-28-2023 [facility] Start: 06-25-2023 Telephone encounter Rebecca Buck MD Work Phone: [facility] Start: 06-25-2023 End: 06-25-2023 ambulatory [facility] Work Phone: Start: 06-25-2023 End: 06-25-2023 [facility] Start: 06-25-2023 [facility] Start: 06-21-2023 End: 06-21-2023 ambulatory [facility] Work Phone: Start: 06-21-2023 End: 06-21-2023 [facility] Start: 06-21-2023 [facility] Start: 06-13-2023 End: 06-13-2023 ambulatory [facility] Work Phone: Start: 06-13-2023 End: 06-13-2023 [facility] Start: 06-06-2023 End: 06-06-2023 ambulatory [facility] Work Phone: Start: 06-06-2023 End: 06-06-2023 [facility] Start: 06-06-2023 [facility] Start: 05-23-2023 End: 05-23-2023 ambulatory [facility] Work Phone: Start: 05-23-2023 End: 05-23-2023 [facility] Start: 05-09-2023 End: 05-09-2023 [facility] Start: 05-09-2023 [facility] Start: 04-23-2023 End: 04-23-2023 [facility] Start: 04-09-2023 End: 04-09-2023 ambulatory [facility] Work Phone: Start: 04-09-2023 End: 04-09-2023 [facility] Start: 04-09-2023 [facility] Start: 04-02-2023 End: 04-02-2023 ambulatory [facility] Work Phone: Start: 04-02-2023 End: 04-02-2023 [facility] Start: 04-02-2023 [facility] Start: 03-26-2023 End: 03-26-2023 ambulatory [facility] Work Phone: Start: 03-26-2023 End: 03-26-2023 [facility] Start: 03-26-2023 [facility] Start: 03-22-2023 End: 03-22-2023 ambulatory [facility] Work Phone: Start: 03-22-2023 End: 03-22-2023 [facility] Start: 03-22-2023 [facility] Start: 03-08-2023 End: 03-08-2023 ambulatory [facility] Work Phone: Start: 03-08-2023 End: 03-08-2023 Departed [facility] Start: 02-22-2023 End: 02-22-2023 ambulatory [facility] Work Phone: Start: 02-22-2023 End: 02-22-2023 Departed [facility] Start: 02-22-2023 Registered Referred [facility] Start: 02-15-2023 End: 02-15-2023 ambulatory [facility] Work Phone: Start: 02-15-2023 End: 02-15-2023 Departed Referred [facility] Start: 02-15-2023 Registered [facility] Start: 02-08-2023 End: 02-08-2023 ambulatory [facility] Work Phone: Start: 02-08-2023 End: 02-08-2023 Departed Referred [facility] Start: 01-31-2023 End: 01-31-2023 ambulatory [facility] Work Phone: Start: 01-31-2023 End: 01-31-2023 Departed Referred [facility] Start: 01-31-2023 Registered [facility] Start: 01-29-2023 End: 01-29-2023 Departed [facility] Start: 01-29-2023 Registered Referred [facility] Start: 01-26-2023 End: 01-26-2023 Departed Ref[facility] Start: 01-26-2023 Registered Referred [facility] Start: 01-24-2023 End: 01-24-2023 Departed Referred [facility] Start: 01-24-2023 Registered Referred [facility] Start: 01-22-2023 End: 01-22-2023 ambulatory [facility] Work Phone: Start: 01-22-2023 End: 01-22-2023 [facility] Start: 01-22-2023 [facility] Start: 01-10-2023 End: 01-10-2023 ambulatory [facility] Work Phone: Start: 01-10-2023 End: 01-10-2023 [facility] Start: 01-10-2023 [facility] Start: 12-27-2022 End: 12-27-2022 ambulatory [facility] Work Phone: Start: 12-27-2022 End: 12-27-2022 [facility] Start: 12-27-2022 [facility] Start: 12-21-2022 End: 12-21-2022 ambulatory [facility] Work Phone: Start: 12-21-2022 End: 12-21-2022 [facility] Start: 12-21-2022 [facility] Start: 12-14-2022 End: 12-14-2022 ambulatory [facility] Work Phone: Start: 12-14-2022 End: 12-14-2022 [facility] Start: 12-14-2022 [facility] Start: 12-07-2022 End: 12-07-2022 ambulatory [facility] Work Phone: Start: 12-07-2022 End: 12-07-2022 [facility] Start: 12-07-2022 [facility] Start: 11-24-2022 End: 11-24-2022 ambulatory [facility] Work Phone: Start: 11-24-2022 End: 11-24-2022 Departed Referred [facility] Start: 11-24-2022 [facility] Start: 11-23-2022 End: 11-23-2022 ambulatory [facility] Work Phone: Start: 11-23-2022 End: 11-23-2022 [facility] Start: 11-23-2022 [facility] Start: 11-22-2022 End: 11-22-2022 ambulatory [facility] Work Phone: Start: 11-22-2022 End: 11-22-2022 [facility] Start: 11-22-2022 [facility] Start: 11-09-2022 End: 11-09-2022 ambulatory [facility] Work Phone: Start: 11-09-2022 End: 11-09-2022 [facility] Start: 11-09-2022 [facility] Start: 10-26-2022 End: 10-26-2022 Departed Ref[facility] Start: 10-26-2022 [facility] Start: 10-12-2022 End: 10-12-2022 ambulatory [facility] Work Phone: Start: 10-12-2022 End: 10-12-2022 [facility] Start: 10-12-2022 [facility] Start: 10-05-2022 End: 10-05-2022 [facility] Start: 10-05-2022 Registered [facility] Start: 09-28-2022 End: 09-28-2022 ambulatory [facility] Work Phone: Start: 09-28-2022 End: 09-28-2022 [facility] Start: 09-14-2022 End: 09-14-2022 [facility] Start: 08-31-2022 End: 08-31-2022 [facility] Start: 08-31-2022 [facility] Start: 08-23-2022 End: 08-23-2022 ambulatory [facility] Work Phone: Start: 08-23-2022 End: 08-23-2022 [facility] Start: 08-23-2022 [facility] Start: 08-17-2022 End: 08-17-2022 ambulatory [facility] Work Phone: Start: 08-17-2022 End: 08-17-2022 [facility] Start: 08-17-2022 Registered [facility] Start: 08-14-2022 End: 08-14-2022 ambulatory [facility] Work Phone: Start: 08-14-2022 End: 08-14-2022 [facility] Start: 08-14-2022 [facility] Start: 07-31-2022 End: 07-31-2022 ambulatory [facility] Work Phone: Start: 07-31-2022 End: 07-31-2022 Departed Referred [facility] Start: 07-31-2022 Registered Ref[facility] Start: 07-24-2022 End: 07-24-2022 ambulatory [facility] Work Phone: Start: 07-24-2022 End: 07-24-2022 Departed Referred [facility] Start: 07-24-2022 Registered Ref[facility] Start: 07-20-2022 End: 07-20-2022 [facility] Start: 07-20-2022 [facility] Start: 07-17-2022 End: 07-17-2022 [facility] Start: 07-17-2022 Registered [facility] Start: 07-11-2022 Registered Referred [facility] Start: 07-10-2022 End: 07-10-2022 ambulatory [facility] Work Phone: Start: 07-10-2022 End: 07-10-2022 Departed Referred [facility] Start: 07-10-2022 Registered Referred [facility] Start: 07-03-2022 End: 07-03-2022 ambulatory [facility] Work Phone: Start: 07-03-2022 End: 07-03-2022 [facility] Start: 07-03-2022 [facility] Start: 06-27-2022 End: 06-27-2022 ambulatory [facility] Work Phone: Start: 06-27-2022 End: 06-27-2022 [facility] Start: 06-27-2022 [facility] Start: 06-13-2022 End: 06-13-2022 ambulatory [facility] Work Phone: Start: 06-13-2022 End: 06-13-2022 [facility] Start: 06-13-2022 [facility] Start: 06-06-2022 End: 06-06-2022 ambulatory [facility] Work Phone: Start: 06-06-2022 End: 06-06-2022 [facility] Start: 06-06-2022 [facility] Start: 05-30-2022 End: 05-30-2022 ambulatory [facility] Work Phone: Start: 05-30-2022 End: 05-30-2022 [facility] Start: 05-30-2022 [facility] Start: 05-16-2022 End: 05-16-2022 ambulatory [facility] Work Phone: Start: 05-16-2022 End: 05-16-2022 [facility] Start: 05-16-2022 [facility] Start: 05-02-2022 End: 05-02-2022 ambulatory [facility] Work Phone: Start: 05-02-2022 End: 05-02-2022 [facility] Start: 05-02-2022 [facility] Start: 04-27-2022 End: 04-27-2022 ambulatory [facility] Work Phone: Start: 04-27-2022 End: 04-27-2022 Departed Referred [facility] Start: 04-27-2022 Registered Ref[facility] Start: 04-26-2022 End: 04-26-2022 ambulatory [facility] Work Phone: Start: 04-26-2022 End: 04-26-2022 Departed Referred [facility] Start: 04-11-2022 End: 04-11-2022 ambulatory [facility] Work Phone: Start: 04-11-2022 End: 04-11-2022 Departed Referred [facility] Start: 03-28-2022 End: 03-28-2022 Departed Referred [facility] Start: 03-28-2022 Registered Referred [facility] Start: 03-23-2022 End: 03-23-2022 Departed Referred [facility] Start: 03-23-2022 Registered Referred [facility] Start: 03-16-2022 End: 03-16-2022 ambulatory [facility] Work Phone: Start: 03-16-2022 End: 03-16-2022 Departed Referred [facility] Start: 03-16-2022 Registered Referred [facility] Start: 03-09-2022 End: 03-09-2022 ambulatory [facility] Work Phone: Start: 03-09-2022 End: 03-09-2022 [facility] Start: 03-09-2022 Registered Ref[facility] Start: 03-06-2022 End: 03-06-2022 ambulatory [facility] Work Phone: Start: 03-06-2022 End: 03-06-2022 [facility] Start: 03-06-2022 [facility] Start: 03-02-2022 End: 03-03-2022 Emergency department patient visit UNKNOWN PROVIDER [facility] Start: 03-02-2022 End: 03-02-2022 Emergency department patient visit Lanette Munguia DO Work Phone: [facility] Emergency Dept Comment on above: Fall, initial encoun ter (Primary Dx); Anticoagulated Start: 02-20-2022 End: 02-20-2022 Departed Referred [facility] Start: 02-20-2022 Registered Referred [facility] Start: 02-13-2022 End: 02-13-2022 ambulatory [facility] Work Phone: Start: 02-13-2022 End: 02-13-2022 Departed Referred [facility] Start: 02-13-2022 Registered [facility] Start: 02-06-2022 End: 02-06-2022 ambulatory [facility] Work Phone: Start: 02-06-2022 End: 02-06-2022 [facility] Start: 02-06-2022 [facility] Start: 01-30-2022 End: 01-30-2022 [facility] Start: 01-30-2022 Reg[facility] Start: 01-26-2022 End: 01-26-2022 ambulatory [facility] Work Phone: Start: 01-26-2022 End: 01-26-2022 [facility] Start: 01-26-2022 Reg[facility] Start: 01-19-2022 End: 01-19-2022 ambulatory [facility] Work Phone: Start: 01-19-2022 End: 01-19-2022 [facility] Start: 01-19-2022 [facility] Start: 01-17-2022 ambulatory [facility] Start: 01-10-2022 [facility] Start: 01-10-2022 End: 01-10-2022 ambulatory [facility] Work Phone: Start: 01-10-2022 End: 01-10-2022 [facility] Start: 01-10-2022 [facility] Start: 01-06-2022 AUDIT Monika Elias rt Work Phone: [facility] Work Phone: Start: 01-05-2022 End: 01-05-2022 [facility] Start: 01-05-2022 [facility] Start: 12-30-2021 End: 12-30-2021 [facility] Start: 12-30-2021 [facility] Start: 12-28-2021 End: 12-28-2021 ambulatory [facility] Work Phone: Start: 12-28-2021 End: 12-28-2021 [facility] Start: 12-28-2021 [facility] Start: 12-26-2021 End: 12-26-2021 ambulatory [facility] Work Phone: Start: 12-26-2021 End: 12-26-2021 [facility] Start: 12-26-2021 Registered Referred [facility] [place] [facility] Start: 12-22-2021 End: 12-22-2021 ambulatory [facility] Work Phone: Start: 12-22-2021 End: 12-22-2021 Departed Referred [facility] Start: 12-22-2021 Registered Referred [facility] [place] [facility] Start: 12-22-2021 End: 12-22-2021 [facility] Start: 12-21-2021 End: 12-22-2021 Emergency department patient visit Sharon Olivia MD Work Phone: [facility] Emergency Dept Comment on above: Heel ulceration, lef t, with unspecified severity (HCC) (Primary Dx) Start: 12-19-2021 End: 12-19-2021 ambulatory [facility] Work Phone: Start: 12-19-2021 End: 12-19-2021 Departed Referred [facility] Kathy [facility] Start: 12-19-2021 Registered Referred [facility] [place] [facility] Start: 12-12-2021 End: 12-12-2021 ambulatory [facility] Work Phone: Start: 12-12-2021 End: 12-12-2021 Departed Referred [facility] [place] [facility] Start: 12-12-2021 Registered Referred [facility] [place] [facility] Start: 12-08-2021 End: 12-08-2021 ambulatory [facility] Work Phone: Start: 12-08-2021 End: 12-08-2021 Departed Referred [facility] Start: 12-08-2021 Registered Referred [facility] [place] [facility] Start: 12-05-2021 End: 12-05-2021 ambulatory [facility] Work Phone: Start: 12-05-2021 End: 12-05-2021 [facility] Start: 12-05-2021 [facility] [place] [facility] Start: 12-01-2021 End: 12-01-2021 [facility] Start: 12-01-2021 [facility] Start: 11-28-2021 End: 11-28-2021 [facility] Start: 11-28-2021 [facility] Start: 11-25-2021 Rx Renewal Monika Elias rt Work Phone: [facility] Work Phone: Start: 11-23-2021 End: 11-23-2021 [facility] [place] [facility] Start: 11-23-2021 [facility] Start: 11-22-2021 End: 11-22-2021 [facility] Start: 11-22-2021 [facility] Start: 11-21-2021 End: 11-21-2021 [facility] [place] [facility] Start: 11-15-2021 AUDIT Monika Elias rt Work Phone: [facility] Work Phone: Start: 11-14-2021 End: 11-14-2021 [facility] [place] [facility] Start: 11-14-2021 [facility] [place] [facility] Start: 11-08-2021 End: 11-08-2021 [facility] Start: 11-08-2021 [facility] [place] [facility] Start: 11-04-2021 End: 11-04-2021 Departed Referred [facility] [facility] Start: 11-04-2021 Registered Referred [facility] [place] [facility] Start: 10-31-2021 End: 11-01-2021 Emergency department patient visit UNKNOWN PROVIDER [facility] Start: 10-31-2021 End: 11-01-2021 Emergency department patient visit Dante Kim MD Work Phone: [facility] Emergency Dept Comment on above: Other fatigue (Prima ry Dx) Start: 10-31-2021 End: 10-31-2021 Departed Referred [facility] [place] [facility] Start: 10-21-2021 End: 10-29-2021 Evaluation and management of inpatient UNKNOWN PROVIDER [facility] Start: 10-21-2021 End: 10-29-2021 Evaluation and management of inpatient Lisa Michelle DO Work Phone: [facility] Comment on above: Leg swelling (Primar y Dx); Acute deep vein thrombosis (DVT) of proximal vein of lower extremity, unspecified laterality (HCC) Start: 10-20-2021 End: 10-20-2021 Departed Referred [facility] [place] [facility] Start: 10-17-2021 Telephone encounter Nicole davis MD Work Phone: [facility] Comment on above: Missed Appointment Start: 09-19-2021 End: 09-19-2021 Departed Referred [facility] [place] [facility] Start: 11-02-2020 AUDIT Monika Elias rt Work Phone: [facility] Work Phone: Start: 10-27-2020 AUDIT Monika Elias rt Work Phone: [facility] Work Phone: Start: 07-13-2020 Patient encounter procedure Monika Staley [facility] Work Phone: Start: 04-13-2020 Patient encounter procedure Wing Ritter [facility] Work Phone: Start: 04-07-2020 Patient encounter procedure Wing Ritter [facility] Work Phone: Start: 03-18-2020 Patient encounter procedure Wing Ritter [facility] Work Phone: Start: 01-20-2020 Patient encounter procedure Monika Staley MD ET-Fllrtyuibe-Ajvqv Work Phone: Start: 11-13-2019 End: 11-13-2019 Subsequent hospital visit by physician [facility] Comment on above: Non-pressure chronic ulcer left lower leg, 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] Start: 11-06-2019 Patient encounter procedure Monika Staley MD EO-Kdsbxkhftw-Qkfpi Work Phone: Start: 06-18-2019 End: 06-18-2019 Subsequent [...] Start: 10-26-2021 Electroencephalogram w/rec awake&asleep Sarina Pineda STORE RECEIVING SPECIALIST - ANIMAL HUSBANDRY TECHNICIAN Work Phone: Start: 10-26-2021 Ct head/brain w/o co ntrast material Sarina Pienda STORE RECEIVING SPECIALIST - ANIMAL HUSBANDRY TECHNICIAN Work Phone: Start: 10-26-2021 Prothrombin time Andres Sheridan MD Work Phone: Start: 10-25-2021 Speech and language therapy regime Sarina Pineda STORE RECEIVING SPECIALIST - ANIMAL HUSBANDRY TECHNICIAN Work Phone: Start: 10-25-2021 Prothrombin time Andres [...] count reticulo cyte automated Ellen Massey Niesha STORE RECEIVING SPECIALIST - ANIMAL HUSBANDRY TECHNICIAN Work Phone: Start: 10-21-2021 C-reactive protein Jax Scherer STORE RECEIVING SPECIALIST - ANIMAL HUSBANDRY TECHNICIAN Work Phone: Start: 10-21-2021 Non-invas physiologi c std extremity art 2 level Shruthi Malik STORE RECEIVING SPECIALIST - ANIMAL HUSBANDRY TECHNICIAN Work Phone: Start: 10-21-2021 Radex calcaneus mini mum 2 views Shruthi Malik STORE RECEIVING SPECIALIST - ANIMAL HUSBANDRY TECHNICIAN Work Phone: Start: 10-21-2021 Dup-scan xtr veins [...] Comment: Speci men Type: BLOOD SPECIMENOrdering Facility: [facility] Address: [address] [place] [address] Performed By: #### T SCR ####[facility] BLOOD BANKCLIA [id number] [address] Start: 08-04-2021 Antibody screen Comment on above: Order Comment: Speci men Type: BLOOD SPECIMENOrdering Facility: [facility] Address: [address] [place] [address] Performed By: #### T SCR ####[facility] BLOOD BANKCLIA [id number] [address] Start: 08-01-2021 Antibody screen Comment on above: Order Comment: Speci men Type: BLOOD SPECIMENOrdering Facility: [facility] Address: [facility] [place] [address] Performed By: #### T SCR ####[facility] BLOOD BANKCLIA [id number] [place] [address] [facility] Start: 06-07-2021 Antibody screen Comment on above: Order Comment: Speci men Type: BLOOD SPECIMEN Performed By: #### T SCR ####[facility] BLOOD BANKCLIA [id number] [place] [address] [facility] Start: 09-02-2020 Lipid 1996 [...] History of Interrupt ion Inferior Vena Cava [place] Filter Placement Monika Staley Urine culture Plan of Treatment Date Care Activity Detail Author Start: 09-22-2026 DTaP/Tdap/Td vaccine (2 - Td or Tdap) DTaP/Tdap/Td vaccine (2 - Td or Tdap) [facility] Start: 09-22-2026 DTaP/Tdap/Td vaccine (2 - Td) DTaP/Tdap/Td vaccine (2 - Td) [facility] Work Phone: Start: 09-22-2026 DTaP/Tdap/Td Vaccine s (2 - Td or Tdap) DTaP/Tdap/Td Vaccines (2 - Td or Tdap) [facility] Start: 09-02-2025 Lipid panel Lipid Panel [facility] Start: 03-02-2025 Registered Referred Registered [facility] Start: 02-26-2025 Registered Referred Registered [facility] [place] [facility] Start: 02-23-2025 Registered Referred Registered [facility] [place] [facility] Start: 02-19-2025 Registered Referred Registered [facility] [employer] Start: 02-16-2025 Registered Referred Registered [facility] [place] [facility] Start: 08-22-2024 DIABETES SCREEN DIABETES SCREEN [facility] Start: 12-04-2023 Lipid panel Lipids [facility] Start: 12-04-2023 Lipid screen Lipid screen [facility] Work Phone: Start: 09-13-2023 End: 09-13-2023 Patient encounter procedure 09/13/2023 11:30 AM EDT Office Visit [facility] [address] [place] [id number] Rebecca Buck MD [address] [place], [place] [id number] [facility] Start: 08-31-2023 End: 08-31-2023 Patient encounter procedure 08/31/2023 9:30 AM EDT Appointment [facility] [address] [place] [phone] Rebecca Buck MD [address] [place] [address] [facility] CT Imaging Start: 08-13-2023 End: 08-12-2024 Basic metabolic 1998 panel - Serum or Plasma Basic metabolic panel Lab Routine Calculus of ureter Expected: 08/13/2023 (Approximate), Expires: 08/12/2024 [facility] [employer] Comment on above: Expected: 08/13/2023 (Approximate), Expires: 08/12/2024 Start: 08-13-2023 End: 08-12-2024 CT Abdomen WO contrast CT abdomen pelvis wo IV contrast Imaging Routine Left flank pain Calculus of ureter Expected: 08/13/2023, Expires: 08/12/2024 [facility] Comment on above: Expected: 08/13/2023 , Expires: 08/12/2024 Start: 08-13-2023 End: 02-12-2024 PSA, Monitoring ([facility]) PSA, Monitoring ([facility]) Lab Routine Disease of prostate Expected: 08/13/2023 (Approximate), Expires: 02/12/2024 [facility] Work Phone: Comment on above: Expected: 08/13/2023 (Approximate), Expires: 02/12/2024 Start: 08-13-2023 End: 08-13-2023 Patient encounter procedure 08/13/2023 10:00 AM EDT Office Visit [facility] [address] [place] [phone] Rebecca Buck MD [address] [place] [address] [facility] Start: 07-17-2023 Bacteria identified in Urine by Culture [facility] Start: 07-17-2023 [facility] Start: 07-16-2023 Measurement of substance [facility] Start: 05-07-2023 Medicare Advantage A nnual Wellness Visit Medicare Advantage Annual Wellness Visit [facility] Start: 03-02-2023 Creatinine measurement Creatinine Le carmela [facility] Start: 03-02-2023 Potassium measurement Potassium Leve l [facility] Start: 08-22-2022 Diabetes mellitus screening Diabetes Screening [facility] Start: 01-05-2022 Influenza vaccination S [facility] Start: 12-23-2021 EPV, Provider: Wing Ritter, Status: Pen, Time: 9:30 AM EPV, Provider: Wing Ritter, Status: Pen, Time: 9:30 AM MU-Codogprqsn-Zrf ma Work Phone: Start: 12-05-2021 Influenza vaccination Flu vaccine (# 1) [facility] Start: 12-05-2021 Blood chemistry [facility] Work Phone: Start: 12-05-2021 Complete blood count [facility] Work Phone: Start: 12-05-2021 [facility] Work Phone: Start: 12-01-2021 [facility] Work Phone: Start: 08-05-2021 COVID-19 VACCINE (4 - Booster for Moderna series) COVID-19 VACCINE (4 - Booster for Moderna series) [facility] Start: 08-05-2021 COVID-19 Vaccine (4 - Booster for Pfizer series) COVID-19 Vaccine (4 - Booster for Pfizer series) [facility] Start: 06-01-2021 COVID-19 Vaccine (4 - Booster for Pfizer series) COVID-19 Vaccine (4 - Booster for Pfizer series) [facility] Start: 05-07-2021 ADVANCE DIRECTIVE DISCUSSION ADVANCE DIRECTIVE DISCUSSION [facility] Start: 08-11-2020 Screening for malign ant neoplasm of colon [facility] Start: 07-30-2020 Screening for malign ant neoplasm of colon [facility] Start: 01-20-2020 Echocardiography Echocardiogram MP-[facility] [address] [place] Work Phone: Start: 01-06-2020 Influenza vaccination INFLUENZA (#1) [facility] Start: 12-04-2019 Annual Wellness Visi t (AWV) Annual Wellness Visit (AWV) [facility] Start: 12-04-2019 Creatinine monitoring Creatinine mon itoring [facility] Work Phone: Start: 12-04-2019 Hepatitis C screen Hepatitis C scree n [facility] Work Phone: Comment on above: Postponed from 05/06 (Patient Refused) Start: 12-04-2019 Potassium monitoring Potassium monit oring [facility] Work Phone: Start: 12-04-2019 Prostate specific an tigen measurement Prostate Specific Antigen (PSA) Screening or Monitoring [facility] Start: 12-04-2019 Shingles Vaccine (1 of 2) Day gles Vaccine (1 of 2) [facility] Work Phone: Comment on above: Postponed from 05/06 (Patient Refused) Start: 06-07-2019 Colon Cancer Screen FIT/FOBT [facility] Work Phone: Start: 08-14-2017 LIPID SCREEN LIPID SCREEN [facility] Start: 2017 ADVANCE DIRECTIVE DISCUSSION ADVANCE DIRECTIVE DISCUSSION [facility] Start: 2017 PNEUMOCOCCAL: 65+ (1 - PCV) PNEUMOCOCCAL: 65+ (1 - PCV) [facility] Start: 2017 PNEUMOVAX AGE 65 AND OVER WITH 5YR LOOKBACK (#1) PNEUMOVAX AGE 65 AND OVER WITH 5YR LOOKBACK (#1) [facility] Start: 04-14-2016 DIABETES SCREEN DIABETES SCREEN [facility] Start: 2012 RSV Immunization age d 60 or older (1 - 1-dose 60+ series) RSV Immunization aged 60 or older (1 - 1-dose 60+ series) [facility] Start: 2007 PROSTATE CANCER SCRE ENING DISCUSSION PROSTATE CANCER SCREENING DISCUSSION [facility] Start: 2002 Shingles vaccine (1 of 2) Day gles vaccine (1 of 2) [facility] Start: 2002 SHINGRIX VACCINE (1 of 2) DAY GRIX VACCINE (1 of 2) [facility] Start: 2002 Tuberculosis screening COLOREC MONIQUE CANCER SCREENING,SEE MODIFIER [facility] Start: 2002 Zoster Vaccines (1 of 2) Zoste r Vaccines (1 of 2) [facility] Start: 1997 COLOGUARD (FIT-DNA) COLOGUARD (FIT-D NA) [facility] Start: 1997 Colonoscopy COLONOSCOPY [facility] Start: 1997 COLORECTAL CANCER SCREENING COLORECTAL CANCER SCREENING [facility] Start: [address] COLONOGRAPHY [facility] Start: 1997 FECAL OCCULT BLOOD FECAL OCCULT BLOO D [facility] Start: 1997 Screening for malign ant neoplasm of colon [facility] Start: 1997 SIGMOIDOSCOPY SIGMOIDOSCOPY [facility] Start: 1987 Diabetes screen Diabetes screen [facility] Start: 1971 Urine microalbumin profile DTAP,TDAP,TD (1 - Tdap) [facility] Start: 1970 ANNUAL PCP TEAM DATA ENTRY SUPERVISOR KEESHA DISEASE VISIT ANNUAL PCP TEAM CHRONIC DISEASE VISIT [facility] Start: 1970 BP CONTROLLED (<130/80) BP CONTROLLE D (<130/80) [facility] Start: 1970 Diabetes mellitus screening Diabetes Screening [facility] Start: 1970 HEPATITIS C SCREENING HEPATITIS C JOBY VILLARREAL [facility] Start: 1970 Hepatitis C screening [facility] Start: 1964 Adult depression screening assessment DEPRESSION SCREENING [facility] Start: 1964 Depression Screen [facility] Start: 1962 Diabetic foot examination Diabetes: Foot Exam [facility] Start: 1962 Glaucoma screening Diabetes: R etinopathy Screening [facility] Start: 1962 Preventive dental service Diabetes: Dental Exam [facility] Start: 1952 Echocardiography Echocardiogram [facility] Start: 1952 Hemoglobin A1c measurement Diabetes: Hemoglobin A1C [facility] Start: 1952 Lipid panel Lipid Panel [facility] Start: 1952 Screening for malign ant neoplasm of colon [facility] Bacteria identified in Urine by Culture Urine Culture [facility] Work Phone: End: 03-02-2022 CBC W Auto Differential panel - Blood CBC with Auto Differential Lab Routine One Time for 1 Occurrences starting 03/02/2022 until 03/02/20[facility] Work [facility]: Comment on above: One Time for 1 Occur rences starting 03/02/2022 until 03/02/2022 End: 03-02-2022 Comprehensive metabolic 2000 panel - Serum or Plasma Comprehensive Metabolic Panel Lab STAT One Time for 1 Occurrences starting 03/02/2022 until 03/02/2022 [employer] Work Phone: Comment on above: One Time for 1 Occur rences starting 03/02/2022 until 03/02/2022 End: 09-06-2023 CT Abdomen WO contrast [facility] Work Phone: Comment on above: Once for 1 Occurrenc es starting 09/06/2023 until 09/06/2023 End: 12-22-2021 Culture, Blood 2 Culture, Blood 2 Microbiology STAT One Time for 1 Occurrences starting 12/22/2021 until 12/22/2021 [facility] Work Phone: Comment on above: One Time for 1 Occur rences starting 12/22/2021 until 12/22/2021 End: 12-22-2021 Microscopic examination of blood, culture Culture, Blood Microbiology STAT One Time for 1 Occurrences starting 12/22/2021 until 12/22/2021 [facility] Work Phone: Comment on above: One Time for 1 Occur rences starting 12/22/2021 until 12/22/2021 Microscopic examinat ion of blood, culture Culture, Blood Microbiology STAT 12/22/2021 12:22 AM EDT [facility] Work Phone: Oxygen therapy [[facility] Data Set] Initiate Oxygen Therapy Protocol Respiratory Care Routine As Needed until discontinued starting 10/21/2021 [facility] Comment on above: As Needed until disc ontinued starting 10/21/2021 Protime-INR Protime-INR Lab Routine Daily until discontinued starting 10/23/2021, 7 completed [facility] Work Phone: Comment on above: Daily until disconti nued starting 10/23/2021, 7 completed End: 03-02-2022 Protime-INR Protime-INR Lab Routine One Time for 1 Occurrences starting 03/02/2022 until 03/02/2022 [facility] Work Phone: Comment on above: One Time for 1 Occur rences starting 03/02/2022 until 03/02/2022 Spirometry panel Incentive stef metry Respiratory Care Routine Daily until discontinued starting 10/21/2021 [facility] Work Phone: Comment on above: Daily until disconti nued starting 10/21/2021 End: 10-21-2021 Wound ostomy eval Wound ostomy eval Wound Ostomy Routine One Time for 1 Occurrences starting 10/21/2021 until 10/21/2021 [facility] Work Phone: Comment on above: One Time for 1 Occur rences starting 10/21/2021 until 10/21/2021 [facility] NEGATED: Highlighted row has been ruled out! Planned Goals not documented [facility]Q-Vzhhejulvs-Mwz ma Work Phone: Immunizations Immunization Date Immunization Notes Care Provider Fa cili 03-04-2019 influenza, high dose seasonal, preservative-free Sarika Salas [facility] 12-03-2018 pneumococcal polysac charide vaccine, [address] [facility] Work Phone: 01-25-2018 influenza, high dose [...] Phone: Payers Date Payer Category Payer Unknown [id number] 03-19-2024 Self-pay 01-05-2022 Medicaid 01-05-2022 Medicare 01-05-2022 Medicare [id number] 10-05-2021 Medicaid [id number] 06-07-2021 Medicare UHC MEDICARE UHC DUAL COMPLETE HMO SNP [id number] 06/07/2021-Present [phone] [address] [place] [address] Medicare [id number] 06-07-2021 Medicare UHC MEDICARE [employer] DUAL COMPLETE [id number] 06/07/2021-Present [phone] [address] [place] [address] [id number] [id number] 11-05-2019 Medicare UHC AARP MEDICAR E [facility] AARP MEDICARE HMO [id number] 11/05/2019-Present [id number] [id number] 07-06-2015 Medicare UHC MEDICARE UHC MEDICARE COMPLETE xxxxxxxxx 2015-Present xxxxxxxxx [id number]. [id number] 1952 Unknown [id number] 2.16.840.1.807596.3.579. 2.668 1952 Unknown [id number] 2.16.840.1.154106.3.579. 2.668 1952 Unknown [id number] 2.840.1.836493.3.579. 2.6605-06-1950 Unknown [id number] 2.16.840.1.741328.3.579. 2.8 1952 Unknown [id number] 2.840.1.265934.3.579. 2.05-06-1950 Unknown [id number] 2.840.1.836242.3.579. 2.668 1952 Unknown [id number] 2.840.1.746612.3.579. 2.668 Private Health Insurance Unknown Unknown [id number] 2.840.1.717060.3.579. 2.462 Unknown [id number] 2.840.1.485892.3.579. 2.462 Unknown [id number] 2.840.1.065186.3.579. 2.462 Unknown [id number] 2.840.1.697269.3.579. 2.462 Unknown [id number] 2.16840.1.945813.3.579. 2.462 Unknown [id number] 2.16.840.1.083988.3.579. 2.462 Unknown [id number] 2.16.840.1.928828.3.579. 2.462 Unknown [id number] 2.16.840.1.968357.3.579. 2.462 Unknown [id number] 2.840.1.202195.3.579. 2.462 Unknown [id number] 2.16.840.1.789830.3.579. 2.462 Unknown [id number] 2.16.840.1.967211.3.579. 2.462 Unknown [id number] 2.16.840.1.859968.3.579. 2.462 Unknown [id number] 2.16.840.1.086680.3.579. 2.462 Unknown [id number] 2.16.840.1.316645.3.579. 2.462 Unknown [id number] 2.16.840.1.275435.3.579. 2.462 Unknown [id number] 2.840.1.173704.3.579. 2.462 Unknown [id number] 2.840.1.611819.3.579. 2.462 Unknown [id number] 2..840.1.939173.3.579. 2.462 Unknown [id number] 2.840.1.542791.3.579. 2.462 Unknown [id number] 2.840.1.493558.3.579. 2.462 Unknown [id number] 2.16.840.1.786986.3.579. 2.462 Unknown [id number] 2.16.840.1.713345.3.579. 2.462 Unknown [id number] 2..840.1.749878.3.579. 2.462 Unknown [id number] 2.16.840.1.759685.3.579. 2.462 Unknown [id number] 2.16.840.1.019256.3.579. 2.462 Unknown [id number] 2.16.840.1.422892.3.579. 2.462 Unknown [id number] 2.16.840.1.464154.3.579. 2.462 Unknown [id number] 2.16840.1.034461.3.579. 2.462 Unknown [id number] 2.16.840.1.496752.3.579. 2.462 Unknown [id number] 2.16840.1.535523.3.579. 2.462 Unknown [id number] 2.16.840.1.570582.3.579. 2.462 Unknown [id number] 2.16840.1.497374.3.579. 2.462 Unknown [id number] 2.16840.1.224649.3.579. 2.462 Unknown [id number] 2.840.1.473227.3.579. 2.462 Unknown [id number] 2.840.1.551845.3.579. 2.462 Unknown [id number] 2.840.1.568954.3.579. 2.462 Unknown [id number] 2.840.1.409947.3.579. 2.462 Unknown [id number] 2.840.1.700282.3.579. 2.462 Unknown [id number] 2.840.1.418403.3.579. 2.462 Unknown [id number] 2.840.1.988928.3.579. 2.462 Unknown [id number] 2.840.1.691589.3.579. 2.462 Unknown [id number] 2.840.1.234832.3.579. 2.462 Unknown [id number] 2.840.1.522209.3.579. 2.462 Unknown [id number] 2.840.1.704682.3.579. 2.462 Unknown [id number] 2.840.1.055129.3.579. 2.462 Unknown [id number] 2.16840.1.554052.3.579. 2.462 Unknown [id number] 2.16.840.1.713074.3.579. 2.462 Unknown [id number] 2.16.840.1.629130.3.579. 2.462 Unknown [id number] 2.16.840.1.716698.3.579. 2.462 Unknown [id number] 2.16.840.1.733431.3.579. 2.462 Unknown [id number] 2.16.840.1.145578.3.579. 2.462 Unknown [id number] 2.16.840.1.374735.3.579. 2.462 Unknown [id number] 2.16.840.1.055820.3.579. 2.462 Unknown [id number] 2.16.840.1.625205.3.579. 2.462 Unknown [id number] 2.16.840.1.887324.3.579. 2.462 Unknown [id number] 2.16.840.1.313477.3.579. 2.462 Unknown [id number] 2.16.840.1.381632.3.579. 2.462 Unknown [id number] 2.16.840.1.641587.3.579. 2.462 Unknown [id number] 2.16.840.1.259689.3.579. 2.462 Unknown [id number] 2.16.840.1.135419.3.579. 2.462 Unknown [id number] 2.16.840.1.676345.3.579. 2.462 Unknown [id number] 2.16.840.1.181618.3.579. 2.462 Unknown [id number] 2.16.840.1.086228.3.579. 2.462 Unknown [id number] 2.16.840.1.600550.3.579. 2.462 Unknown [id number] 2.16.840.1.546992.3.579. 2.462 Unknown [id number] 2.16.840.1.766252.3.579. 2.462 Unknown [id number] 2.16.840.1.016707.3.579. 2.462 Unknown [id number] 2.16.840.1.449345.3.579. 2.462 Unknown [id number] 2.16.840.1.677679.3.579. 2.462 Unknown [id number] 2.16.840.1.234031.3.579. 2.462 Unknown [id number] 2.16.840.1.627600.3.579. 2.462 Unknown [id number] 2.16.840.1.572805.3.579. 2.462 Unknown [id number] 2.16.840.1.942760.3.579. 2.462 Unknown [id number] 2.16.840.1.133706.3.579. 2.462 Unknown [id number] 2.16.840.1.568193.3.579. 2.462 Unknown [id number] 2.16.840.1.073075.3.579. 2.462 Unknown [id number] 2.16.840.1.458357.3.579. 2.462 Unknown [id number] 2.16.840.1.678898.3.579. 2.462 Unknown [id number] 2.16.840.1.325067.3.579. 2.462 Unknown [id number] 2.16.840.1.392387.3.579. 2.462 Unknown 24393940 2.16.840.1.995140.3.579. 2.462 Unknown [id number] 2.16.840.1.335903.3.579. 2.462 Unknown [id number] 2.16.840.1.556092.3.579. 2.462 Unknown [id number] 2.16.840.1.480178.3.579. 2.462 Unknown [id number] 2.16.840.1.199370.3.579. 2.462 Unknown [id number] 2.16.840.1.710663.3.579. 2.462 Unknown [id number] 2.16.840.1.536499.3.579. 2.462 Unknown [id number] 2.16.840.1.748351.3.579. 2.462 Unknown [id number] 2.16.840.1.339980.3.579. 2.462 Unknown [id number] 2.16.840.1.589869.3.579. 2.462 Unknown [id number] 2.16.840.1.053632.3.579. 2.462 Unknown 14460503 2.16.840.1.355753.3.579. 2.462 Unknown [id number] 2.16.840.1.137212.3.579. 2.462 Unknown [id number] 2.16.840.1.094934.3.579. 2.462 Unknown [id number] 2.16.840.1.449390.3.579. 2.462 Unknown [id number] 2.16.840.1.591320.3.579. 2.462 Unknown [id number] 2.16.840.1.902769.3.579. 2.462 Unknown [id number] 2.16.840.1.255438.3.579. 2.462 Unknown [id number] 2.16.840.1.150473.3.579. 2.462 Unknown [id number] 2.16.840.1.870795.3.579. 2.462 Unknown [id number] 2.16.840.1.431071.3.579. 2.462 Unknown [id number] 2.16.840.1.191981.3.579. 2.462 Unknown [id number] 2.16.840.1.447137.3.579. 2.462 Unknown [id number] 2.16.840.1.924669.3.579. 2.462 Unknown [id number] 2.16.840.1.448820.3.579. 2.462 Unknown [id number] 2.16.840.1.604938.3.579. 2.462 Unknown [id number] 2.16.840.1.024087.3.579. 2.462 Unknown [id number] 2.16.840.1.944082.3.579. 2.462 Unknown [id number] 2.16.840.1.056590.3.579. 2.462 Unknown [id number] 2.16.840.1.994296.3.579. 2.462 Unknown [id number] 2.16.840.1.978081.3.579. 2.462 Unknown [id number] 2.16.840.1.887489.3.579. 2.462 Unknown [id number] 2.16.840.1.948246.3.579. 2.462 Unknown [id number] 2.16.840.1.441912.3.579. 2.462 Unknown [id number] 2.16.840.1.653257.3.579. 2.462 Social History Date Type Detail Facility Start: 05-23-2018 End: 05-19-2019 Tobacco smoking status HIIS Former smoker [facility] Work Phone: History of tobacco use Cigar Smoker [facility] Work Phone: Start: 05-19-2019 End: 08-13-2023 Cigarettes smoked current (pack per day) - Reported [facility] Work Phone: Start: 05-19-2019 End: 08-13-2023 Alcohol intake Current non-drinker of alcohol (finding) [facility] Work Phone: Start: 12-03-2018 History SDOH Physica l Activity DPW 7 [facility] Work Phone: Start: 12-03-2018 History SDOH Physica l Activity MPS 9 [employer] Work Phone: Start: 12-03-2018 End: 10-31-2021 History SDOH Stress 1 [facility] Work Phone: Start: 12-03-2018 History SDOH Financial 5 [facility] Work Phone: Start: 12-03-2018 History SDOH Transpo rt Med 2 [employer] Work Phone: Start: 1950 Sex Assigned At Not on file S [facility] Work Phone: Start: 08-13-2012 End: 11-13-2019 Tobacco smoking status NHIS Never smoker [facility] Start: 05-23-2018 End: 11-13-2019 Tobacco use and exposure Never used [facility] Start: 11-13-2019 History SDOH Alcohol Std Drinks 98 [facility] Start: 10-11-2021 End: 02-15-2022 Exposure to SARS-CoV-2 (event) Not sure [facility] Start: 1950 Sex Assigned At Male [facility] History of tobacco use Current smoker [facility] Work Phone: History of tobacco use Cigarette Smoker S [facility] Work Phone: Start: 10-31-2021 End: 08-13-2023 Tobacco use panel [facility] Tobacco smoking stat us HIIS Unknown if ever smoked [facility] Work Phone: Start: 07-11-2024 End: 08-21-2024 Sex Male (finding) [facility] NEGATED: Highlighted row - - [facility] Work Phone: Medical Equipment Procedure Code Equipment Code Equipment Origin al Text Equipment Identifier Dates Kit Bactiseal Woodard maria guadalupe Silicone Barium Catheter Shunt Sterile - [id number] Start: 06-08-2021 Catheter Bactise al 14cm External Drainage Csf Sterile Latex Free - [id number] Start: 08-05-2021 Valve Certas Shannon nt Inline - [id number] Start: 06-08-2021 Cass snow Inline - [id number] Start: 08-05-2021 Valve Armando snow Inline - [id number] Start: 08-09-2021 Goals Date Patient Goal [...] confident he can reach it. Added to [facility] exercise information Functional Status Date Assessment Result Facility NEGATED: Highlighted row Functional performance Functional status health issues are not documented Disease [facility] Work Phone: Mental Status Date Assessment Result Facility NEGATED: Highlighted row Cognitive function [Interpretation] Cognitive status health issues are not documented Disease [facility] Work Phone: Clinical Notes [...] Hydrocephalus, adult (CMS/HCC) (HCC) Kidney stone Neuropathy BEVELER (ventriculoperitoneal) shunt status Past Surgical History: Procedure [...] 09/13/23 12:05 PM documented in this encounter [facility] 08-31-2023 Note S: Shanthi from [facility] spoke with [facility] nurse regarding voiding trial procedure. [...] Protocols used: Information Only Call - No [id number]-[id number]-[id number] [facility] 08-31-2023 Telephone encounter Note S: Shanthi from [facility] spoke with [facility] nurse regarding voiding trial procedure. [...] Protocols used: Information Only Call - No Pcjjzl-[id number]-XY [facility] 08-31-2023 Miscellaneous Notes S: Shatnhi from [place] [facility] [place] spoke with [facility] nurse regarding voiding trial procedure. B: Onset of symptoms/concern today. A: [facility] is calling to make sure that the [...] Protocols used: Information Only Call - No Xsawhu-PUMET-OF documented in this encounter [facility] 08-29-2023 Telephone encounter Note Lm on daughters vm to advise them to call the number for the retail property manager to get clarification, and to call back with further questions [facility] 08-29-2023 Miscellaneous Notes Lm on daughters vm to advise them to call the number for the retail property manager to get clarification, and to call back with further questions Yes, they will need to call the number given to them. Please advise Name of caller: Shanthi Contact phone number: [phone] Relationship to Patient: patient Provider: MD Quinn Practice: [facility] Chief Complaint/Reason for Call: [...] out to call Maury Avila at [facility] [phone] to get clarifications. TEA did reach back out to [facility] and advised and provider Maury's #. Please advise Best time of day caller can be reached: Any Patient advised that office/PCP has 24-48 business hours to return their call: N/A documented in this encounter [facility] 08-27-2023 Telephone encounter Note Yes, they will need to call the number given to them. [facility] 08-27-2023 Telephone encounter Note Please advise [facility] 08-21-2023 Telephone encounter Note Name of caller: Shanthi Contact phone number: [phone] Relationship to Patient: patient Provider: MD Quinn Practice: [facility] Chief Complaint/Reason for Call: Shanthi called in to see if Pt would need to come by cot for his CT appt due to Pt being Boaz. TEA did reach out to office and was advised to reach out to Central Scheduling. TEA did reach out to CS and was advised to let [facility] know that she would need to reach out to call Maury Avila at [facility] [phone] to get clarifications. [facility] did reach back out to [facility] and advised and provider Maury's #. Please advise Best time of day caller can be reached: Any Patient advised that office/PCP has 24-48 business hours to return their call: N/A [facility] [employer] 08-13-2023 History of Present illness Narrative Images [...] Hydrocephalus, adult (CMS/HCC) (HCC) Kidney stone Neuropathy BEVELER (ventriculoperitoneal) shunt status Past Surgical History: Past [...] 08/13/23 10:45 AM documented in this encounter [facility] 06-25-2023 Telephone encounter Note [facility] called in stating appt scheduled 07/10/23 Guy has to be made further out, pt being transported by cot. Changed appt to 08/13/23 per [facility] only avail time for transport, first avail with DR Buck at 10:00 AM. [facility] 06-25-2023 Miscellaneous Notes [facility] called in stating appt scheduled 07/10/23 Guy has to be made further out, pt being transported by cot. Changed appt to 08/13/23 per [facility] only avail time for transport, first avail with DR Buck at 10:00 AM. documented in this encounter [facility] 12-22-2021 Hospital Discharge instructions SANIA Lou - 12/22/2021 2:32 AM EDT Please take medication as prescribed Please follow up with your Physicians as instructed in this discharge paperwork Thank you for choosing [facility] I appreciate your patience Please return to the emergency department if your symptoms worsen, or new symptoms develop as discussed documented in this encounter [facility] Work Phone: 10-29-2021 Note Hospitalist Discharg [...] abnormality and previous indwelling tubing history of BEVELER shunt ? #?Bilateral lower extremity wounds-wound care [...] Your Medications These medications were sent to [facility] [address] [place] [address] [address] [facility] - P [phone] - F [phone] [facility] [id number] ? levETIRAcetam 750 MG tablet ? warfarin 6 MG tablet Recommended Follow-up: No follow-up provider specified. Complexity of Follow up: [] Moderate Complexity: follow up within 7-14 calendar days (54203) [x] Severe Complexity: follow up within 7 calendar days (18474) Follow up Testing, Pending results or Referrals [...] Increased fatigue or (more content not included)... [facility] 10-29-2021 Hospital Discharge instructions Fabi Subramanian [...] Contact Information Primary Emergency Contact: NelsonTriny Address: [address] [place] [address] [place] [address] [facility] Relation: Brother/Sister Secondary Emergency Contact: Melissa Sifuentes Mobile Relation: Child Preferred language: Finnish Past Surgical History: Past Surgical History: Procedure Laterality Date BRAIN SURGERY CHOLECYSTECTOMY COLONOSCOPY HERNIA REPAIR Immunization History: Immunization History Administered Date(s) Administered Influenza Virus Vaccine 02/08/2015 Influenza, High Dose (Fluzone 65 yrs and older) 01/25/2018, 03/04/2019 Influenza, Quadv, IM, (6 mo and older Fluzone, Flulaval, Fluarix and 3 yrs and older Afluria) 02/24/2016, 02/14/2017 Pneumococcal Conjugate 13-valent ([id number]) 09/22/2016 Pneumococcal Conjugate Vaccine 02/04/2013 Pneumococcal Polysaccharide ([id number]) 12/03/2018 Tdap (Boostrix, Adacel) 09/22/2016 Active Problems: [...] Dependent Dressing Dependent Toileting Dependent Feeding Dependent [employer] Professional Dependent Med Delivery whole in pudding Wound [...] Q4H prn SOB Oxygen Therapy: {Therapy; copd oxygen:54406} Ventilator: { CC Vent List:[id number]} Rehab Therapies: {THERAPEUTIC INTERVENTION:[id number]} Weight Bearing Status/Restrictions: Weight Bearing - Patient was bedbound in hospital Other Medical Equipment (for information only, NOT a DME order): wheelchair, hospital bed, and Boaz Other Treatments: Patient's personal belongings (please select all that are sent with patient): {[facility] DME Belongings:[id number]} RN SIGNATURE: CASE MANAGEMENT/SOCIAL WORK SECTION Inpatient Status Date: Readmission Risk Assessment Score: Readmission Risk Risk of Unplanned Readmission: 11 Discharging to Facility/ Agency Name: Address: Phone: Fax: Dialysis Facility (if applicable) Name: Address: Dialysis Schedule: Phone: Fax: Butter Grader/Doctor'S Assistant signature: {Esignature:[id number]} PHYSICIAN SECTION Prognosis: Fair Condition at Discharge: Stable Rehab Potential (if transferring to Rehab): Fair Recommended Labs or Other Treatments After Discharge: Coumadin based on INR target range 2-3, Coumadin 6 mg on 10/30 and 10/31, recheck INR 11/01 and notify physician, ideally should be on 6 mg alt with 7 mg daily, PT/OT, follow-up with neurologist in 1 month, continue [facility] Physician Certification: I certify the above information and transfer of Andrew Sifuentes is necessary for the continuing treatment of the diagnosis listed and that he requires Group Home Facility for greater than 30 days. Update Admission H&P: No change in H&P PHYSICIAN SIGNATURE: documented in this encounter [facility] Work Phone: 10-29-2021 History of Present illness Narrative [facility] ([facility]) Inpatient Warfarin Consult HPI: Andrew Sifuentes is a 71 y.o. 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 Past Medical History: Diagnosis Date ED (erectile dysfunction) Hemorrhoids Hydrocephalus, adult (HCC) Kidney stone Neuropathy BEVELER (ventriculoperitoneal) shunt status Patient is newly referred to the [facility] clinic for warfarin management. Pt was [...] PharmD IRVIN Consult Service is available daily [phone]. Please search for covering pharmacist name via [employer]itt[employer] or Groups --> Pharmacy --> Anti-Coagulation Consult Pharmacist (on 3rd page). If no response via Tittat, please page [phone]. Patient seen and chart reviewed. Afebrile. Adequate oxygenation on room air. Baseline mentation. Exam stable X 5 systems. Hgb 11.0 WBC 10.0 K Platelets 344 K Creatinine 0.71 GFR > 90 cc/min. NSE 20.8 with hemolysis. PT 30.8 INR 3.1 Conversion to Warfarin has been completed. APS w/u pending. Discussed with patient's corporate staff accountant. Will continue to monitor. Total visit time > 35 minutes. Neurology Attending Progress Note SUBJECTIVE: No issues overnight. Care discussed with nursing staff/patient's medical team MRI brain reported nothing acute. Assessment and Plan: 71 yr M with PMH obstructive hydrocephalus s/p BEVELER shunt in 1987, needing multiple revisions and [...] normal limits and both old and new BEVELER shunt tubing noted. At present patient is awake, follows commands, was able to tell his name, and that he was in hospital but not oriented to time. Per documentation patient had NCSE in May 2021, was on Vimpat, but it was discontinued as there was no evidence of recurrent seizures in july 2021 by Neurology at [facility], per daughter patient was on Dilantin for 31 yrs. Per daughter patient had seizures in the past and also felt he had staring episodes 10/26/2021 morning. Per daughter patient has been essentially bed bound in [place] since May 2021 but prior to that was independent Impressions: H/O hydrocephalus H/O seizure, H/O stroke Acute DVT H/O PE Plan: -MRI brain w/o contrast nothing acute -CT head done during this admission reported no hydrocephalus, ventricles within normal limits and both old and new BEVELER shunt tubing noted -EEG mild to moderate slow, no seizures reported -Labs reviewed -Hydrocephalus management per Neurosurgery. At present patient does not have hydrocephalus on CT head done this admission. No Neurosurgery services available as inpatient in [facility]. Patient can follow up with Neurosurgery as outpatient and if ends up needing inpatient neurosurgery requirement then may need to be transferred to [facility]. -No clear clinical signs of ventriculitis. Defer evaluation to primary medical team/ID as deemed necessary. -Discussed with daughter in detail on . She was concerned that patient has had h/o seizures, and he has been taken off seizure medication, per note documentation patient had NCSE in May 2021 when he was admitted to [facility]. Per daughter she would want patient [...] is no in house Neurology coverage at [facility] over the weekend, primary hospitalist team to contact plant operations coordinator Neurology at [facility] for any weekend neurological issues related to the patient and if need to discuss any neurological test results/findings. Other deal in house Neurology coverage will be available from Sunday at [facility] and please call plant operations coordinator Neurology back on Sunday if need further assistance. This note has been generated using Optimal+ dictation software. It may contain incorrect words, punctuation's and spellings that were not noted in the review of the note prior to signing. This note has been generated using Optimal+ dictation software. It may contain incorrect words, [...] eGFR >90.0 >60 mL/min EGFR IF NonAfrican Greenlandic >90.0 >60 mL/min Calcium 9.1 8.4 - [...] 26 AST 24 BILITOT 0.4 LABALBU 3.7 @BRIEFLAB([facility]) ABGs: )No results for input(s): [...] Radiology ACCESSION EXAM DATE/TIME PROCEDURE ORDERING PROVIDER [id number] 10/21/2021 15:30 EDT CR Calcaneus 2+ Views [id number] -SHRUTHI AMLIK Left CPT code 51597 Reason For Exam (CR Calcaneus 2+ Views [...] Result Date: 10/26/2021 [id number] Tomography ACCESSION EXAM DATE/TIME PROCEDURE ORDERING PROVIDER [id number] 10/26/2021 11:[address] Head or Brain w/o JUNIE PINEDA ALLISON Contrast CPT code 30487 Reason For Exam (CT Head or Brain w/o Contrast) hydrocephalus. thank you Report CLINICAL INFORMATION: Hydrocephalus. Shunt. 3 mm axial cuts through the head are obtained without IV contrast. The examination is compared to a previous study dated 06/29/2014. FINDINGS: Old BEVELER shunt tubing is noted bilaterally. The new [...] are clear. IMPRESSION: 1. Old and new BEVELER shunt tubing. 2. No hydrocephalus. 3. Atrophy [...] Imaging ACCESSION EXAM DATE/TIME PROCEDURE ORDERING PROVIDER [id number] 10/23/2021 11:08 EDT MRI Abdomen w/o Contrast SRIVASTAVAWING CPT code 60778 Reason For Exam (MRI Abdomen w/o Contrast) [...] Medicine ACCESSION EXAM DATE/TIME PROCEDURE ORDERING PROVIDER [id number] 10/21/2021 07:55 EDT NM Pulmonary Perfusion [id number] -MAY CASH w/ Vent Aerosol CPT code 02648 A9567 Reason For Exam (NM Pulmonary Perfusion [...] Extremity Bilateral Result Date: 10/22/2021 [facility] --- Ankle Brachial Index Report Patient DO GurpreetB: 1950 Study 10/21/2021 Name: Andrew Gonzalez (71yrs) Date: Age: 71 Account: [id number] Gender: M Loc: 444W BP: Ordering Physician: Shruthi Malik Timber Management Specialist: Rody Cross RDMS, RVT Interpreting Physician: Carina Call --- Location: [facility] --- Indications: Foot wounds. Originally ordered as a full PVR. Ordering DRAFTER CARTOGRAPHIC had to modify the order to ABIs [...] supine position. Images were obtained using a [employer] vascular ultrasound machine. --- Arterial pressure indices: [...] VENOUS DUPLEX Result Date: 10/21/2021 [facility] --- Lower Extremity Venous Duplex Report Patient DO GurpreetB: 1950 Study 10/21/2021 Name: Andrew Gonzalez (71yrs) Date: Age: 71 Account: [id number] Gender: M Loc: 444 BP: Ordering Physician: May Cash Timber Management Specialist: Rody Cross RDMS, RVT Interpreting Physician: Carina [...] supine position. Images were obtained using a [employer] vascular ultrasound machine. --- Venous flow and [...] Radiology ACCESSION EXAM DATE/TIME PROCEDURE ORDERING PROVIDER [id number] 10/21/2021 08:16 EDT CR Chest 1 View Frontal [id number] MAY BOGGS CPT code 53876 Reason For Exam (CR Chest 1 View [...] Time: 10/21/2021 8:32 am Signed by: MD KHRAI, VENUS RAMOS Transcribed Date and Time: 10/21/2021 8:33 CT Abdomen Pelvis Wo Contrast Result Date: 10/22/2021 [id number] Computed Tomography ACCESSION EXAM DATE/TIME PROCEDURE ORDERING PROVIDER [id number] 10/22/2021 13:[address] Abdomen/Pelvis (No SRIVASTAVA, WING PO, No IV) CPT code 30996 Reason For Exam (CT Abdomen/Pelvis (No PO, [...] Imaging ACCESSION EXAM DATE/TIME PROCEDURE ORDERING PROVIDER [id number] 10/27/2021 13:14 EDT MRI Brain w/o Contrast UNASSIGNED, UNASSIGNED CPT code 81480 Reason For Exam (MRI Brain w/o Contrast) stroke Patient has BEVELER shunt in place, please follow Radiology protocol [...] included. Hospitalist Progress Note 10/28/2021 11:37 AM [phone]: Please page me @ [phone] for patient care issues. [phone]: Please page access control specialist for any issues@ night Subjective: Admit [...] abnormality and previous indwelling tubing history of BEVELER shunt # Bilateral lower extremity wounds-wound care [...] Services This report was created using the [employer] Speaking voice-activated system. Despite prompt dictation and careful editorial review, there may be subtle contextual errors in this report, due to misrecognition of the spoken word. Speech Language Pathology Facility/Department: [facility] MED SURG Dysphagia Treatment Note [...] this session. [facility] ([facility]) Inpatient Warfarin Consult HPI: Andrew Sifuentes is a 71 y.o. 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 Past Medical History: Diagnosis Date ED (erectile dysfunction) Hemorrhoids Hydrocephalus, adult (HCC) Kidney stone Neuropathy BEVELER (ventriculoperitoneal) shunt status Patient is newly referred to the [facility] clinic for warfarin management. Pt was [...] drug interactions and adjust dose accordingly. 3. [facility] will manage while inpatient and sign off at discharge. Patient resides in a SNF. 4. Will provide warfarin education including [facility] warfarin booklet, if appropriate. Brionna Le, PharmD candidate Josie Gupta RPh, PharmD [facility] Consult Service is available daily [phone]. Please search for covering pharmacist name via [employer] or Groups --> Pharmacy --> Anti-Coagulation Consult Pharmacist (on 3rd page). If no response via PerfectServe, please page [phone]. Follow up b/l foot wounds. No new [...] yr M with PMH obstructive hydrocephalus s/p BEVELER shunt in 1987, needing multiple revisions and [...] normal limits and both old and new BEVELER shunt tubing noted. At present patient is awake, follows commands, was able to tell his name, and that he was in hospital but not oriented to time. Per documentation patient had NCSE in May 2021, was on Vimpat, but it was discontinued as there was no evidence of recurrent seizures in july 2021 by Neurology at [facility], per daughter patient was on Dilantin for 31 yrs. Per daughter patient had seizures in the past and also felt he had staring episodes 10/26/2021 morning. Per daughter patient has been essentially bed bound in [place] since May 2021 but prior to that was independent Impressions: H/O hydrocephalus H/O seizure, H/O stroke Acute DVT H/O PE Plan: -MRI brain w/o contrast. Per daughter she would like MRI brain done to evaluate for strokes -CT head done during this admission today reported no hydrocephalus, ventricles within normal limits and both old and new BEVELER shunt tubing noted -EEG mild to moderate slow, no seizures reported -Labs reviewed -Hydrocephalus management per Neurosurgery. At present patient does not have hydrocephalus on CT head done this admission. No Neurosurgery services available as inpatient in [facility]. Patient can follow up with Neurosurgery as outpatient and if ends up needing inpatient neurosurgery requirement then may need to be transferred to [facility]. -No clear clinical signs of ventriculitis. Defer evaluation to primary medical team/ID as deemed necessary. -Discussed with daughter in detail on . She was concerned that patient has had h/o seizures, and he has been taken off seizure medication, per note documentation patient had NCSE in May 2021 when he was admitted to [facility]. Per daughter she would want patient [...] interim. This note has been generated using Optimal+ dictation software. It may contain incorrect words, punctuation's and spellings that were not noted in the review of the note prior to signing. This note has been generated using Optimal+ dictation software. It may contain incorrect words, [...] LABALBU, AMYLASE, LIPASE in the last 72 hours.@BRIEFLAB([facility]) ABGs: )No results for input(s): [...] Radiology ACCESSION EXAM DATE/TIME PROCEDURE ORDERING PROVIDER [id number] 10/21/2021 15:30 EDT CR Calcaneus 2+ Views [id number] -SHRUTHI MALIK Left CPT code 38765 Reason For Exam (CR Calcaneus 2+ Views [...] Tomography ACCESSION EXAM DATE/TIME PROCEDURE ORDERING PROVIDER [id number] 10/26/2021 11:[address] Head or Brain w/o EDWIN, DRAFTER CARTOGRAPHIC, SARINA Contrast CPT code 30643 Reason For Exam (CT Head or Brain w/o Contrast) hydrocephalus. thank you Report CLINICAL INFORMATION: Hydrocephalus. Shunt. 3 mm axial cuts through the head are obtained without IV contrast. The examination is compared to a previous study dated 06/29/2014. FINDINGS: Old BEVELER shunt tubing is noted bilaterally. The new [...] are clear. IMPRESSION: 1. Old and new BEVELER shunt tubing. 2. No hydrocephalus. 3. Atrophy [...] Imaging ACCESSION EXAM DATE/TIME PROCEDURE ORDERING PROVIDER [id number] 10/23/2021 11:08 EDT MRI Abdomen w/o Contrast WING SRIVASTAVA CPT code 35997 Reason For Exam (MRI Abdomen w/o Contrast) [...] Medicine ACCESSION EXAM DATE/TIME PROCEDURE ORDERING PROVIDER [id number] 10/21/2021 07:55 EDT NM Pulmonary Perfusion [id number] MAY BOGGS w/ Vent Aerosol CPT code 47435 A9567 Reason For Exam (NM Pulmonary Perfusion [...] Extremity Bilateral Result Date: 10/22/2021 [facility] --- Ankle Brachial Index Report Patient Gurpreet RADHA: 1950 Study 10/21/2021 Name: Andrew Gonzalez (71yrs) Date: Age: 71 Account: [id number] Gender: M Loc: 444W BP: Ordering Physician: Shruthi Malik Timber Management Specialist: Rody Cross RDMS, RVT Interpreting Physician: Carina Call --- Location: [facility] --- Indications: Foot wounds. Originally ordered as a full PVR. Ordering DRAFTER CARTOGRAPHIC had to modify the order to ABIs [...] supine position. Images were obtained using a [employer] vascular ultrasound machine. --- Arterial pressure indices: [...] VENOUS DUPLEX Result Date: 10/21/2021 [facility] --- Lower Extremity Venous Duplex Report Patient DO GurpreetB: 1950 Study 10/21/2021 Name: Andrew Gonzalez (71yr) Date: Age: 71 Account: [id number] Gender: M Loc: 444 BP: Ordering Physician: May Cash Timber Management Specialist: Rody Cross RDMS, RVT Interpreting Physician: Jakub, Carina --- Location: [facility] --- Indications: [...] supine position. Images were obtained using a [employer] vascular ultrasound machine. --- Venous flow and [...] Radiology ACCESSION EXAM DATE/TIME PROCEDURE ORDERING PROVIDER [id number] 10/21/2021 08:16 EDT CR Chest 1 View Frontal [id number] MAY BOGGS CPT code 47687 Reason For Exam (CR Chest 1 View [...] Tomography ACCESSION EXAM DATE/TIME PROCEDURE ORDERING PROVIDER [id number] 10/22/2021 13:[address] Abdomen/Pelvis (No SRIVASTAVA, WING PO, No IV) CPT code 36733 Reason For Exam (CT Abdomen/Pelvis (No PO, [...] 12:48 PM Consults Speech Language Pathology Facility/Department: [facility] Dysphagia Treatment Note [...] reactivity and state change, indicative of a rtrn-ga-vvmnmwip diffuse encephalopathy of nonspecific etiology. There are [...] Easy to chew diet/cut up. NEVILLE Jones M.A.CCC/STATION COOK Time session ended: 1156 Total session minutes: 23 Images from the original note were not included. Hospitalist Progress Note 10/27/2021 10:40 AM [phone]: Please page me @ [phone] for patient care issues. [phone]: Please page access control specialist for any issues@ night Subjective: Admit [...] Services This report was created using the [employer] Speaking voice-activated system. Despite prompt dictation and careful editorial review, there may be subtle contextual errors in this report, due to misrecognition of the spoken word. [facility] ([facility]) Inpatient Warfarin Consult HPI: Andrew Sifuentes is a 71 y.o. 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 Past Medical History: Diagnosis Date ED (erectile dysfunction) Hemorrhoids Hydrocephalus, adult (HCC) Kidney stone Neuropathy BEVELER (ventriculoperitoneal) shunt status Patient is newly referred to the [facility] clinic for warfarin management. Pt was [...] consult Brionna Le, RigoD candidate Josie Gupta [facility], PharmD IRVIN Consult Service is available daily [phone]. Please search for covering pharmacist name via Tittat or Groups --> Pharmacy --> Anti-Coagulation Consult Pharmacist (on 3rd page). If no response via Tittat, please page [phone]. I cleaned under patient's finger nails with [...] therapeutic status with Warfarin. Discussed with patient's corporate staff accountant. Will continue to monitor. Total [...] if concern Hydrocephalus Chronic WOODARD's - Revised BEVELER shunt - daughter requested that pt have CT / MRI of brain and neurology be consulted, this was done. - "Hydrocephalus management per Neurosurgery. At present patient does not have hydrocephalus on CT head done this morning. No Neurosurgery services available as inpatient in [facility]. Patient can follow up with Neurosurgery as outpatient and if ends up needing inpatient neurosurgery requirement then may need to be transferred to [facility]. " Seizure history, unspecified - daughter requested [...] wound care. [facility] ([facility]) Inpatient Warfarin Consult HPI: Andrew Sifuentes is a 71 y.o. 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 Past Medical History: Diagnosis Date ED (erectile dysfunction) Hemorrhoids Hydrocephalus, adult (HCC) Kidney stone Neuropathy BEVELER (ventriculoperitoneal) shunt status Patient is newly referred to the [facility] clinic for warfarin management. Pt was referred by Ellen B Niesha, STORE RECEIVING SPECIALIST-ANIMAL HUSBANDRY TECHNICIAN. Pt is on warfarin for DVT and [...] PharmD IRVIN Consult Service is available daily [phone]. Please search for covering pharmacist name via Tittat or Groups --> Pharmacy --> Anti-Coagulation Consult Pharmacist (on 3rd page). If no response via Tittat, please page [phone]. Moon daughter stated that any of patient's family can call and obtain an update on patient's status. Speech Language Pathology Facility/Department: [facility] CLINICAL BEDSIDE SWALLOW [...] a small bore straw. Additionally discussed with STATION COOK, agreeable to assess tomorrow. Recent Chest Xray/CT [...] and liquids between bites. Treatment Plan Requires STATION COOK Intervention: Yes Duration of Treatment: 2 weeks [...] Education Response: Verbalizes understanding;Needs reinforcement Therapy Time STATION COOK Individual Minutes Time In: 826 Time Out: 852 Minutes: 26 NEVILLE Jones 10/26/2021 9:20 AM Comprehensive Nutrition Assessment Type and Reason for Visit: Initial (DT referral for wounds) Nutrition Recommendations/Plan: 1. Recommend to continue: Easy to Chew diet with Thin Liquids as currently ordered and safe for patient to participate in. Discussed with: RN, DRAFTER CARTOGRAPHIC, and STATION COOK. STATION COOK to assess tomorrow, best diet and liquid [...] Malnutrition Assessment: Malnutrition Status: Moderate malnutrition (10/25/21 3039) Context: Chronic Illness Findings of the 6 [...] & deltoids),Scapula (trapezius) Fluid Accumulation: Mild Extremities Manager Center Strength: Not Performed Nutrition Assessment: 71 year [...] a small bore straw. Additionally discussed with STATION COOK, agreeable to assess tomorrow. Nutrition Related Findings: [...] Anthropometric Measures: Height: 5' 7.01" (170.2 cm) Irving Body Weight (IBW): 148 lbs (67 kg) [...] On: Kcal/kg Weight Used for Energy Requirements: Irving (67.15 kg) Energy (kcal/day): 8286-0640 (27-32 kcal/kg IBW) --> increased need d/t wounds Weight Used for Protein Requirements: Irving (67.15 kg) Protein (g/day): 67-101 (1.0-1.5 g protein/kg IBW) Method Used for Fluid Requirements: Other (Comment) Fluid (ml/day): 4297-8467 mL daily or per MD Nutrition Diagnosis: [...] Plan of Care discussed with: Patient, RN, DRAFTER CARTOGRAPHIC Edwin Goals: Goals: other (specify) Specify Other [...] to determine Puja Almanza RD, LD Contact: [phone] Tittat Hematology/Oncology Attending Progress Note SUBJECTIVE: Patient seen [...] IRON, TIBC, FERRITIN No results found for: [id number] No results found for: FOLATE PT 15.6 INR 1.5 CA 19 - 9 is 17 Protein S 138% Protein C 186% ASSESSMENT AND PLAN GI input appreciated. Patient continues with subtherapeutic INR. GI input appreciated. Discussed with patient's corporate staff accountant. Will continue monitor. Total visit time > 35 minutes. [facility] ([facility]) Inpatient Warfarin Consult HPI: Andrew Sifuentes is a 71 y.o. 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 Past Medical History: Diagnosis Date ED (erectile dysfunction) Hemorrhoids Hydrocephalus, adult (HCC) Kidney stone Neuropathy BEVELER (ventriculoperitoneal) shunt status Patient is newly referred to the [facility] clinic for warfarin management. Pt was [...] Le, PharmD candidate Josie Gupta RPh, PharmD [facility] Consult Service is available daily [phone]. Please search for covering pharmacist name via Tittat or Groups --> Pharmacy --> Anti-Coagulation Consult Pharmacist (on 3rd page). If no response via Tittat, please page [phone]. Progress Note 10/25/2021 9:36 AM Name: Andrew [...] if concern Hydrocephalus Chronic WOODARD's - Revised BEVELER shunt DC planning - 10/25/21: INR subtherapeutic, [...] if concern Hydrocephalus Chronic WOODARD's - Revised BEVELER shunt DC planning - Can be DC'd back to [facility]CF once MRI done if no acute findings, MRI is done, defer to hem / onc on plan for that, awaiting chest PA with fluoro Patient seen and chart reviewed. Consult dictated. Will ask GI to assess concerning the etiology of liver lesions. Will continue to monitor. [facility] ([facility]) Inpatient Warfarin Consult HPI: Andrew Sifuentes is a 71 y.o. 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 Past Medical History: Diagnosis Date ED (erectile dysfunction) Hemorrhoids Hydrocephalus, adult (HCC) Kidney stone Neuropathy BEVELER (ventriculoperitoneal) shunt status Patient is newly referred to the [facility] clinic for warfarin management. Pt was [...] drug interactions and adjust dose accordingly. 3. [facility] will manage while inpatient and sign off at discharge. Patient resides in a SNF. 4. Will provide warfarin education including [facility] warfarin booklet, if appropriate. Thank you for this consult Brionna Le, PharmD candidate Josie Gupta RPh, PharmD [facility] Consult Service is available daily [phone]. Please search for covering pharmacist name via Mezmerizve or Groups --> Pharmacy --> Anti-Coagulation Consult Pharmacist (on 3rd page). If no response via PerfectServe, please page [phone]. Follow up foot wounds Patient is more alert this morning. Waffle boots are on Ulcer left heel ulcer right foot Foot drop PE, chart reviewed. Patient relates that he does not walk at home. c ontinue wound care. Images from the original note were not included. Hospitalist Progress Note 10/23/2021 1:47 PM [phone]: Please page me ([phone]) or perfect serve me for patient care issues. [phone]: Please page IMS night Hospitalist for any issues. Subjective: Admit Date: 10/21/2021 PCP: MONIKA STALEY MD Room#: [id number]/[id number] Admitting Synopsis: 71 y/o male presents from [...] if concern Hydrocephalus Chronic WOODARD's - Revised BEVELER shunt DC planning - Can be DC'd [...] Hemorrhoids Hydrocephalus, adult (HCC) Kidney stone Neuropathy BEVELER (ventriculoperitoneal) shunt status Medications: sodium chloride warfarin [...] of Hospitalist Medicine Inpatient Medical Services PAGER: [phone] Nutrition rescreen completed. Pt referred to RD for foot ulcers. Occupational Therapy Facility/Department: [facility] Occupational Therapy Initial Assessment Name: Andrew Sifuentes : 1950 Date of Service: 10/23/2021 OT eval and treat orders received. Chart reviewed. Per notes pt from [facility], is Boaz lift at baseline, non-ambulatory, and requires assist for all ADLs. Will d/c OT orders. Elizabeth Gutierrez OT Physical Therapy Facility/Department: [address] Physical Therapy Initial Assessment Name: Andrew Sifuentes : 1950 Date of Service: 10/23/2021 PT eval and treat orders received. Chart reviewed. Per notes pt from [facility], is Boaz lift at baseline, non-ambulatory. Will d/c PT orders. Lloyd Silva PT [facility] ([facility]) Inpatient Warfarin Consult HPI: Andrew Sifuentes is a 71 y.o. 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 Past Medical History: Diagnosis Date ED (erectile dysfunction) Hemorrhoids Hydrocephalus, adult (HCC) Kidney stone Neuropathy BEVELER (ventriculoperitoneal) shunt status Patient is newly referred to the [facility] clinic for warfarin management. Pt was [...] PharmD IRVIN Consult Service is available daily [phone]. Please search for covering pharmacist name via Tittat or Groups --> Pharmacy --> Anti-Coagulation Consult Pharmacist (on 3rd page). If no response via Mezmerizve, please page [phone]. Department of Podiatry Attending Consult Note Reason for Consult: Wound care Requesting Physician: MD Oksana CHIEF COMPLAINT: Foot wounds HISTORY OF PRESENT ILLNESS: The patient is a 71 y.o. male with b/l foot wounds. Patient is awake , but not answering questions. Past Medical History: Diagnosis Date ED (erectile dysfunction) Hemorrhoids Hydrocephalus, adult (HCC) Kidney stone Neuropathy BEVELER (ventriculoperitoneal) shunt status Past Surgical History: Procedure [...] OT consulted. Will follow . Thank you. [facility] Respiratory Care Department Progress Note As [...] included. Hospitalist Progress Note 10/22/2021 6:33 AM [phone]: Please page me ([phone]) or perfect serve me for patient care issues. [phone]: Please page [facility] night Hospitalist for any issues. Subjective: Admit Date: 10/21/2021 PCP: MONIKA STALEY MD Room#: 009/1461 Admitting Synopsis: 71 y/o male presents from [...] consider MRI if concern Hydrocephalus - Revised BEVELER shunt Interval History: No overnight issues. Denies [...] no cyanosis or edema and unable to office mover BLE, this is old Musculoskeletal: Muscle [...] Hemorrhoids Hydrocephalus, adult (HCC) Kidney stone Neuropathy BEVELER (ventriculoperitoneal) shunt status Medications: sodium chloride baclofen [...] of Hospitalist Medicine Inpatient Medical Services PAGER: [phone] Images from the original note were not included. Hospitalist Progress Note 10/21/2021 5:31 PM [phone]: Please page me ([phone]) or perfect serve me for patient care issues. [phone]: Please page IMS night Hospitalist for any [...] Will need chronic OAC Hydrocephalus - Revised BEVELER shunt Interval History: No overnight issues. Denies [...] Hemorrhoids Hydrocephalus, adult (HCC) Kidney stone Neuropathy BEVELER (ventriculoperitoneal) shunt status Medications: sodium chloride baclofen [...] of Hospitalist Medicine Inpatient Medical Services PAGER: [phone] Family member Triny, sister to patient, called back to the hospital stating that she was returning a call from a provider. Her phone number is [phone] to speak with whomever was attempting to reach out to her. documented in this encounter [facility] Work Phone: 10-17-2021 Miscellaneous Notes Mr. Sifuentes missed his hospital stay follow-up appointment w. Dr. Lim today. Called to Reschedule. Could not get through. "Subscriber you have dialed not in service" - was the automated voice mail. Unable to leave VM. No other phone# available. Ramya Negro Long Lines Operator [facility] documented in this encounter [facility] 08-19-2021 Note [facility] 08-19-2021 Note [facility] 08-18-2021 Note [facility] 08-18-2021 Note [facility] 08-17-2021 Note [facility] 08-17-2021 Note [facility] 08-16-2021 Note [facility] 08-16-2021 Note HNO ID: [id number] Author: Katt Kelsey DO Service: Hospital Medicine Author Type: Physician Type: Plan of Care Filed: 08/16/2021 12:26 PM Note Text: Spoke with RN that line is a PICC. Katt Kelsey DO 08/16/2021 12:26 PM [facility] 08-16-2021 Note [facility] 08-16-2021 Note [facility] 08-15-2021 Note [facility] 08-15-2021 Note [facility] 08-15-2021 Note [facility] 08-14-2021 Note [facility] 08-14-2021 Note [facility] 08-13-2021 Note [facility] 08-13-2021 Note [facility] 08-13-2021 Note [facility] 08-13-2021 Note HNO ID: [id number] Author: Ambar Note Service: ? Author Type: ? Type: Progress Notes Filed: 08/13/2021 3:10 AM Note Text: Epic Scheduled Downtime: 08/13/2021 1:08:47 AM to 08/13/2021 2:53:47 AM [facility] 08-12-2021 Note [facility] 08-12-2021 Note [facility] 08-12-2021 Note [facility] 08-11-2021 Note [facility] 08-11-2021 Note [facility] 08[facility]11-2021 Note [facility] 08-11-2021 Note [facility] 08-11-2021 Note [facility] 08-11-2021 Note [facility] 08-10-2021 Note [facility] 08-10-2021 Note [facility] 08-10-2021 Note [facility] 08-10-2021 Note [facility] 08-09-2021 Note HNO ID: [id number] Author: Shannon Brooks RN Service: ? Author Type: Registered Nurse Type: Nursing Progress Note Filed: 08/09/2021 7:33 PM Note Text: Report called to unit [facility] 08-09-2021 Note [facility] 08-09-2021 Note [facility] 08-09-2021 Note [facility] 08[facility]08-2021 Note [facility] 08-08-2021 Note [facility] 08-08-2021 Note [facility] 08-07-2021 Note [facility] 08-07-2021 Note [facility] 08-07-2021 Note [facility] 08[facility]07-2021 Note [facility] 08-07-2021 Note [facility] 08-06-2021 Note [facility] 08-06-2021 Note [facility] 08-06-2021 Note [facility] 08-05-2021 Note [facility] 08-05-2021 Note [facility] 08-05-2021 Note [facility] 08-04-2021 Note [facility] 08-04-2021 Note [facility] 08-04-2021 Note [facility] 08-03-2021 Note [facility] 08-03-2021 Note [facility] 08-03-2021 Note [facility] 08-02-2021 Note [facility] 08-02-2021 Note [facility] 08-02-2021 Note [facility] 08-01-2021 Note [facility] 08-01-2021 Note [facility] 08-01-2021 Note [facility] 08-01-2021 Note [facility] 07-31-2021 Note [facility] 07-31-2021 Note [facility] 07-30-2021 Note [facility] 07-30-2021 Note [facility] 07-30-2021 Note [facility] 07-29-2021 Note [facility] 07-29-2021 Note [facility] 07-29-2021 Note [facility] 07-28-2021 Note [facility] 07-28-2021 Note [facility] 07-28-2021 Note [facility] 07-27-2021 Note [facility] 07-27-2021 Note [facility] 07-27-2021 Note [facility] 07-26-2021 Note [facility] 07-26-2021 Note [facility] 07-26-2021 Note [facility] 07-26-2021 Note [facility] 07-26-2021 Note [facility] 07-25-2021 Note [facility] 07-25-2021 Note [facility] 07-25-2021 Note [facility] 07-25-2021 Note [facility] 07-24-2021 Note [facility] 07-24-2021 Note [facility] 07-24-2021 Note [facility] 07-23-2021 Note [facility] 07-23-2021 Note [facility] 07-23-2021 Note [facility] 07-23-2021 Note [facility] 07-23-2021 Note [facility] 07-22-2021 Note [facility] 07[facility]22-2021 Note [facility] 07-22-2021 Note [facility] 07-21-2021 Note [facility] 07-21-2021 Note [facility] 07-21-2021 Note [facility] 07-21-2021 History of Past i [...] history of fever, elevated WBC, RP hematoma BEVELER shunt tip grew anaerobic gram positive cocci 06/08/2021 PLAN: BEVELER shunt tip sent to [facility] [...] following CSF studies; 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 for WATCH DIAL PRINTER infection at this time - ID following- Continue antibiotics: Meropenem -CSF leak from EVD site, appreciate NSGY recs> stat repeat CTH on 06/07 d/t concern for CSF leak, cephalematoma, CTH unremarkable -Tolerating TF - SBT WTE - PICC line placed documented as of this encounter (statuses as of 10/17/2021) [facility]03-17-2022 [place] [facility]-16-2022 Note [facility]03-16-2022 [facility] 07-19-2021 [facility]03-15-2022 [facility]03[facility]15-2022 [facility]03-14-2022 [facility]03[facility]14-2022 [facility]03-13-2022 [facility]03[facility]13-2022 [facility]03-12-2022 Note [facility]03-12-2022 [facility] 07-15-2021 [facility]03-11-2022 [facility]03-10-2022 [facility]03-10-2022 [facility]03[facility]10-2022 [facility]03-09-2022 [facility]03-09-2022 [facility]03-09-2022 Note [facility]03-09-2022 [facility] 07-12-2021 [facility]03-08-2022 [facility]03-07-[facility]22 [facility]03[facility]07-2022 [facility]03-07-2022 [facility]03-07-2022 [facility]03-06-2022 [facility]03[facility]06-2022 Note [facility]03-05-2022 [facility] 07-09-2021 [facility]03-05-2022 [facility]03-05-2022 [facility]03-05-2022 NoteHNO ID: [id number] Author: Lizette Valderrama RN Service: Nursing Author Type: Registered Nurse Type: Nursing Progress Note Filed: 07/09/2021 1:41 AM Note Text: Report called to [facility]03-04-2022 NoteHNO ID: [id number] Author: Lizette Valderrama RN Service: Nursing Author Type: Registered Nurse Type: Nursing Progress Note Filed: 07/08/2021 8:57 PM Note Text: [address]49 back to PACU [address] [place], [place] [id number] NoteHNO ID: [id number] Author: Sukhi Chery APRN.CNP Service: ? Author Type: Nurse Practitioner Type: Progress Notes Filed: 07/09/2021 6:46 PM Note Text: Connected Care Unit Progress Note Patient Name: Andrew Sifuentes Patient Facility: [facility] Admit Date 06/28/2021 Level of Care: Skilled [...] Dept Phone 07/21/2021 11:00 AM [facility] [phone] HPI: (Per Dr. Beltran) Andrew Sifuentes is being seen today for custodial facility (SNF) admission AND management of weakness, tube feed, infected retroperitoneal infection and seizure. ? This is a 71 year old male who presents from [facility] with primary admitting diagnosis of Seizure, [...] CT brain concerning for hydrocephalus. Tip of BEVELER shunt was found to be in the [...] slow to respond. Ordered to transfer to [facility] ED for evaluation of neurological and [...] changes in co (more content not included)... [facility]03-04-2022 [facility]03-04-2022 [facility]03-02-2022 NoteHNO ID: [id number] Author: Sukhi Chery APRN.CNP Service: ? Author Type: Nurse Practitioner Type: Progress Notes Filed: 07/09/2021 6:20 PM Note Text: Connected Care Unit Progress Note Patient Name: Andrew Sifuentes Patient Facility: [facility] Admit Date 06/28/2021 Level of Care: Skilled [...] Dept Phone 07/21/2021 11:00 AM [facility] [phone] HPI: (Per Dr. Beltran) Andrew Sifuentes is being seen today for custodial facility (SNF) admission AND management of weakness, tube feed, infected retroperitoneal infection and seizure. ? This is a 71 year old male who presents from [facility] with primary admitting diagnosis of Seizure, [...] CT brain concerning for hydrocephalus. Tip of BEVELER shunt was found to be in the [...] Pharynx: Oropharynx is clear. (more content not included)...[facility]02-28-2022 NoteHNO ID: [id number] Author: Sukhi Chery APRN.ANIMAL HUSBANDRY TECHNICIAN Service: ? Author Type: Nurse Practitioner Type: Progress Notes Filed: 07/09/2021 6:07 PM Note Text: Connected Care Unit Progress Note Patient Name: Andrew Sifuentes Patient Facility: [facility] Admit Date 06/28/2021 Level of Care: Skilled [...] but nursing notes it was drawn by dinkey engine operator as vancomycin was being infused; reordered trough - PICC Line Intact - No fevers or chills per patient or staff (R53.81) Debility - Certify therapies - Maintain high falls risk precautions - pt/staff verbalize understanding validated via teach back - Monitor safety awareness Appointments for Next 60 Days Date Time Provider Location Dept Phone 07/21/2021 11:00 AM [facility] [phone] HPI: (Per Dr. Beltran) Andrew Sifuentes is being seen today for custodial facility (SNF) admission AND management of weakness, tube feed, infected retroperitoneal infection and seizure. ? This is a 71 year old male who presents from [facility] with primary admitting diagnosis of Seizure, [...] CT brain concerning for hydrocephalus. Tip of BEVELER shunt was found to be in the [...] to facility records. OBJECTIVE: Labs/diagnostics: 07/04/2021 Glucose=91 Ik=244 K=3.8 Qz=007 CO2=24 BUN=14 Creatinine=0.5 ZYA=490 Ca=9.0 Protein,Total=6.7 Albumin=3.6 AegKetr=257 AST=15 ALT=21 Bilirubin,Totall=0.5 WBC=10.7 RBC=4.04 Hgb=10.9 Hct=35.3 Vcbizowm=198 VancomycinTr (more content not included)...[facility]02-24-2022 NoteHNO ID: [id number] Author: Sukhi Chery APRN.KIM Service: ? Author Type: Nurse Practitioner Type: Progress Notes Filed: 07/09/2021 5:43 PM Note Text: Connected Care Unit Progress Note Patient Name: Andrew Sifuentes Patient Facility: [facility] Admit Date 06/28/2021 Level of Care: Skilled [...] Phone 07/21/2021 11:00 AM [facility] [phone] HPI: (Per Dr. Beltran) Andrew Sifuentes is being seen today for custodial facility (SNF) admission AND management of weakness, tube feed, infected retroperitoneal infection and seizure. ? This is a 71 year old male who presents from [facility] with primary admitting diagnosis of Seizure, [...] CT brain concerning for hydrocephalus. Tip of BEVELER shunt was found to be in the [...] to facility records. OBJECTIVE: Labs/diagnostics: 07/01/2021 Glucose=83 Fl=823 K=4.1 Tq=700 CO2=27 BUN=22 Creatinine=0.6 HSH=160 Ca=8.7 WBC=10.8 RBC=3.40 Hgb=9.3 Hct=29.9 Jhhujnsq=579 Vital Signs: BP 128/80 Pulse 77 Temp 36.7 ?C (98 ?F) Resp 20 Ht 182.9 cm (6') Wt 113 kg (249 lb 3.2 oz) SpO2 96% BMI 33.80 kg/m? Physical Exam: Physical Exam Vitals reviewed. Constitutional: General: He is not in acute distress. (more content not included)...[facility]02-22-2022 [facility]02-22-2022 [facility]02-21-2022 [facility]02-21-2022 Note [facility]02-20-2022 [facility] 06-26-2021 [facility]-19-2022 [facility]19-20[facility]18-[facility]02[facility]18-20[facility]02[facility]18-20[facility]02-17-2022 [facility]02-17-2022 Note [facility]02-17-2022 [facility] 06-22-2021 NoteHNO ID: [id number] Author: Xiomy England RN Service: Nursing Author Type: Registered Nurse Type: Nursing Progress Note Filed: 06/22/2021 7:22 PM Note Text: RT contacted as pt has wheezing auscultated and same auditory. For prn Treatment.[facility]02-16-2022 [facility]02-16-2022 [facility]02-16-2022 [facility]16-20[facility]16-20[facility]15-20[facility]15-2022 [facility]02-15-2022 [facility] 06-21-2021 [facility]02-14-2022 [facility]02-14-2022 [facility]02-14-2022 [facility]02-14-2022 [facility]02[facility]14-2022 [facility]02-13-2022 [facility]02-13-2022 Note [facility]02-13-2022 [facility] 06-19-2021 [facility]02-13-2022 [facility]02[facility]12-20[facility]12-20[facility]12-20[facility]02-12-2022 [facility]02-12-2022 [facility]02-12-2022 Note [facility]02-12-2022 NoteHNO ID: [id number] Author: Ambar Note Service: ? Author Type: ? Type: Progress Notes Filed: 06/18/2021 3:10 AM Note Text: Epic Scheduled Downtime: 06/18/2021 1:00:00 AM to 06/18/2021 2:27:[facility]02-11-2022 [facility] 06-17-2021 [facility]02-11-20[facility]11-20[facility]10-20[facility]10-20[facility]02[facility]10-20[facility]02-10-2022 [facility]02-10-2022 Note [facility]02-10-2022 [facility] 06-15-2021 [facility]02-09-2022 NoteHNO ID: [id number] Author: Lamonte Kline DO Service: Neurology ICU Author Type: Resident Type: Plan of Care Filed: 06/15/2021 6:21 PM Note Text: Patient's daughter Melissa updated on plan of care and critical condition, all questions answered.[facility]02-09-2022 [facility]02-09-2022 [facility]02-09-2022 [facility]02-09-2022 [facility]02-09-2022 Note [facility]02-09-2022 [facility] 06-15-2021 [facility]02-08-2022 [facility]02-08-2022 [facility]02-08-2022 [facility]02-08-2022 [facility]02-07-2022 [facility]02-07-2022 [facility]02-07-2022 Note [facility]02-07-2022 [facility]-12-[facility]02[facility]02-05-2022 [facility]02-04-2022 [facility]02-04-2022 [facility]02-04-2022 Note [facility]02-04-2022 [facility] 06-09-2021 [facility]02-03-2022 [facility]02-03-2022 [facility]02-03-2022 [facility]02-02-2022 [facility]02-02-2022 NoteHNO ID: [id number] Author: Luis Diaz RN Service: ? Author Type: Registered Nurse Type: Nursing Progress Note Filed: 06/08/2021 9:23 AM Note Text: Patient off the floor to OR at this time.[facility]02-02-2022 [facility]02-02-2022 [facility] 06-08-2021 NoteHNO ID: [id number] Author: Eloise Samuel RN Service: ? Author Type: Registered Nurse Type: Nursing Progress Note Filed: 06/08/2021 12:46 AM Note Text: Dr. Brito notified of changes throughout shift. No new [facility] 06-07-2021 NoteHNO ID: [id number] Author: Eloise Samuel RN Service: ? Author Type: Registered Nurse Type: Nursing Progress Note Filed: 06/07/2021 8:01 PM Note Text: Neuro surg ANIMAL HUSBANDRY TECHNICIAN notified of downward deviation of pupils. No new orders at this time.[facility]02-01-2022 [facility]02-01-2022 [facility]02-01-2022 [facility]02-01-2022 [facility]01-31-2022 [facility]01-31-2022 [facility]01-31-2022 Note [facility]01-31-2022 [facility] 06-05-2021 [facility]01-30-2022 [facility]01-30-2022 [facility]01-29-2022 [facility]01-29-2022 NoteHNO ID: [id number] Author: Jermaine Miller PA-C Service: Neurosurgery Author Type: Physician Rotary Driller Type: Plan of Care Filed: 06/04/2021 1:59 PM Note Text: Discussed with Dr. Charles CT brain results. At this time, continue with EVD at 5 [facility]01-29-2022 [facility] 06-04-2021 [facility]01-28-2022 [facility]01-28-2022 NoteHNO ID: [id number] Author: Mauricio Frank DO Service: Neurology ICU Author Type: Physician Type: Plan of Care Filed: 06/03/2021 2:38 PM Note Text: I spoke with Melissa and updated her over the phone. Mauricio Frank, [facility]01-28-2022 [facility]01-28-2022 [facility]01-27-2022 [facility]01-27-2022 [facility]01-27-2022 Note [facility]01-26-2022 [facility] 06-01-2021 [facility]01-26-2022 [facility]01-26-2022 [facility]01-26-2022 [facility]01-25-2022 [facility]01-25-2022 [facility]01-25-2022 [facility]01-25-2022 Note [facility]01-25-2022 [facility] 05[facility]31-2021 [facility] Leg swelling- Primary Swelling of limb Acute deep vein thrombosis (DVT) of proximal vein of lower extremity, unspecified laterality (HCC) DVT, lower extremity, recurrent, unspecified laterality (HCC) Moderate malnutrition (HCC) Malnutrition of moderate degree History of seizures Personal history of other disorders of nervous system and sense organs documented in this encounter [facility] Work Phone: Evaluation noteNo assessment information available [facility] Work Phone: Evaluation note* Diagnosis Other fatigue- Primary documented in this encounter [facility] Work Phone: Evaluation note* Diagnosis Heel ulceration, left, with unspecified severity (HCC)- Primary documented in this encounter [facility] Work Phone: Evaluation note* Diagnosis Fall, initial encounter- Primary Anticoagulated Encounter for long-term (current) use of anticoagulants documented in this encounter [facility] Work Phone: Evaluation note* Diagnosis Left flank pain- Primary Abdominal pain, unspecified site Calculus of ureter Disease of prostate Unspecified disorder of prostate BPH with urinary obstruction Hypertrophy of prostate with urinary obstruction and other lower urinary tract symptoms (LUTS) [facility] Diagnosis Left flank pain Abdominal pain, unspecified site Calculus of ureter [facility]* Diagnosis Left flank pain- Primary Abdominal pain, unspecified site BPH with urinary obstruction Hypertrophy of prostate with urinary obstruction and other lower urinary tract symptoms (LUTS) History of kidney stones [facility]* Name Dates Details Instructions not documented [id number] Work Phone: Instructions* Name Dates Details Instructions not documented [id number] [place] Work Phone: Reason for referral (narrative)No reason for referral information availableCommunity [facility] Work Phone: Advance Directives No Advanced Directives Records FoundDocuments on File Type Date Recorded Patient Call Box Wirer Expl anation Advance Directives and Living Will Power of Molded Rubber Goods Cutter Documents on File Type Date Recorded Patient Call Box Wirer Expl anation Advance Directive(s) 06/02/2021 2:45 PM [...] Maker Relationship: 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 Adult Children (telephone claims representative) Documents on File Type Date Recorded Patient Call Box Wirer Expl anation ACP-Advance Directive ACP-Power of Molded Rubber Goods Cutter Latest Code Status on File Code Status Date Activated Date Inactivated Comments Full Code 10/21/2021 4:09 AM Healthcare Agents on File Name Relationship Healthcare Agent Relationshi p Communication Melissakb Dengyer Child Primary Decision Maker deann Gurpreet Child Secondary Decision Maker Documents on File Type Date Recorded Patient Call Box Wirer Expl anation ACP-Advance Directive ACP-Power of Molded Rubber Goods Cutter ACP-Do Not Resuscitate 11/01/2021 7:03 AM Latest Code Status on File Code Status Date Activated Date Inactivated Comments Full Code 10/21/2021 4:09 AM 10/29/2021 7:25 PM Healthcare Agents on File Name Relationship Healthcare Agent Relationshi p Communication Melissakb Dengyer Child Primary Decision Maker deann Gurpreet Child Secondary Decision Maker Documents on File Type Date Recorded Patient Call Box Wirer Expl anation ACP-Do Not Resuscitate 11/03/2021 10:15 AM ACP-Do Not Resuscitate 11/01/2021 7:03 AM Healthcare Agents on File Name Relationship Healthcare Agent Relationshi p Communication Melissa Gurpreet Child Primary Decision Maker deann Gurpreet Child Secondary Decision Maker Documents on File Type Date Recorded Patient Call Box Wirer Expl anation ACP-Do Not Resuscitate 11/03/2021 10:15 [...] Documents on File Type Date Recorded Patient Call Box Wirer Expl anation DNR (Do Not Resuscitate) 10/31/2021 DNR (Do Not Resuscitate) 10/21/2021 Documents on File Type Date Recorded Patient Call Box Wirer Expl anation DNR (Do Not Resuscitate) 10/31/2021 [...] WORK LABWORK Chief Complaint LAB WORK LABWORK RETIREMENT LAB WORK RETIREMENT LABWORK Chief Complaint LAB WORK LABWORK RETIREMENT LAB WORK RETIREMENT LABWORK LABWORK LABWORK RETIREMENT LAB WORK RETIREMENT LABWORK RETIREMENT LAB WORK LABWORK RETIREMENT LAB WORK LABWORK RETIREMENT LABWORK Chief Complaint LAB WORK LABWORK RETIREMENT LAB WORK RETIREMENT LABWORK LABWORK LABWORK RETIREMENT LAB WORK RETIREMENT LABWORK RETIREMENT LAB WORK LABWORK RETIREMENT LAB WORK LABWORK RETIREMENT LABWORK RETIREMENT LABWORK LABWORK Chief Complaint LAB WORK LABWORK RETIREMENT LAB WORK RETIREMENT LABWORK LABWORK LABWORK RETIREMENT LAB WORK RETIREMENT LABWORK RETIREMENT LAB WORK LABWORK RETIREMENT LAB WORK LABWORK RETIREMENT LABWORK RETIREMENT LABWORK LABWORK RETIREMENT LAB WORK Chief Complaint LABWORK RETIREMENT LAB WORK RETIREMENT LABWORK LABWORK LABWORK RETIREMENT LAB WORK RETIREMENT LABWORK RETIREMENT LAB WORK LABWORK RETIREMENT LAB WORK LABWORK RETIREMENT LABWORK RETIREMENT LABWORK LABWORK LABWORK RETIREMENT LAB WORK Chief Complaint LABWORK RETIREMENT LAB WORK RETIREMENT LABWORK LABWORK LABWORK RETIREMENT LAB WORK RETIREMENT LABWORK RETIREMENT LAB WORK LABWORK RETIREMENT LAB WORK LABWORK RETIREMENT LABWORK RETIREMENT LABWORK LABWORK LABWORK RETIREMENT LAB WORK LABWORK RETIREMENT LABWORK RETIREMENT LAB WORK RETIREMENT LABWORK Chief Complaint RETIREMENT LAB WOR K RETIREMENT LABWORK LABWORK LABWORK RETIREMENT LAB WORK RETIREMENT LABWORK RETIREMENT LAB WORK LABWORK RETIREMENT LAB WORK LABWORK RETIREMENT LABWORK RETIREMENT LABWORK LABWORK LABWORK RETIREMENT LAB WORK LABWORK RETIREMENT LABWORK RETIREMENT LAB WORK RETIREMENT LABWORK RETIREMENT LAB WORK Chief Complaint RETIREMENT LABWORK LABWORK LABWORK RETIREMENT LAB WORK RETIREMENT LABWORK RETIREMENT LAB WORK LABWORK RETIREMENT LAB WORK LABWORK RETIREMENT LABWORK RETIREMENT LABWORK LABWORK LABWORK RETIREMENT LAB WORK LABWORK RETIREMENT LABWORK RETIREMENT LAB WORK RETIREMENT LABWORK LABWORK RETIREMENT LAB WORK Chief Complaint RETIREMENT LAB WOR K RETIREMENT LABWORK RETIREMENT LAB WORK LABWORK RETIREMENT LAB WORK LABWORK RETIREMENT LABWORK RETIREMENT LABWORK LABWORK LABWORK RETIREMENT LAB WORK LABWORK RETIREMENT LABWORK RETIREMENT LAB WORK RETIREMENT LABWORK LABWORK LABWORK RETIREMENT LAB WORK RETIREMENT PATIENT RETIREMENT LABWORK RETIREMENT LABWORK Chief Complaint LABWORK RETIREMENT LAB WORK LABWORK RETIREMENT LABWORK RETIREMENT LABWORK LABWORK LABWORK RETIREMENT LAB WORK LABWORK RETIREMENT LABWORK RETIREMENT LAB WORK RETIREMENT LABWORK LABWORK LABWORK RETIREMENT LAB WORK RETIREMENT PATIENT RETIREMENT LABWORK RETIREMENT LABWORK RETIREMENT LAB WORK Chief Complaint LABWORK RETIREMENT LABWORK RETIREMENT LABWORK LABWORK LABWORK RETIREMENT LAB WORK LABWORK RETIREMENT LABWORK RETIREMENT LAB WORK RETIREMENT LABWORK LABWORK LABWORK RETIREMENT LAB WORK RETIREMENT PATIENT RETIREMENT LABWORK RETIREMENT LABWORK RETIREMENT LAB WORK RETIREMENT LAB WORK RETIREMENT LAB WORK Chief Complaint LABWORK LABWORK RETIREMENT LAB WORK RETIREMENT PATIENT RETIREMENT LABWORK RETIREMENT LABWORK RETIREMENT LAB WORK RETIREMENT LAB WORK RETIREMENT LAB WORK RETIREMENT LABWORK RETIREMENT LABWORK LABWORK RETIREMENT LAB WORK LABWORK Chief Complaint RETIREMENT LAB WOR K RETIREMENT PATIENT RETIREMENT LABWORK RETIREMENT LABWORK RETIREMENT LAB WORK RETIREMENT LAB WORK RETIREMENT LAB WORK RETIREMENT LABWORK RETIREMENT LABWORK LABWORK RETIREMENT LAB WORK LABWORK RETIREMENT LABWORK Chief Complaint RETIREMENT PATIENT RETIREMENT LABWORK RETIREMENT LABWORK RETIREMENT LAB WORK RETIREMENT LAB WORK RETIREMENT LAB WORK RETIREMENT LABWORK RETIREMENT LABWORK LABWORK RETIREMENT LAB WORK LABWORK RETIREMENT LABWORK RETIREMENT LABWORK Chief Complaint RETIREMENT LABWORK RETIREMENT LAB WORK RETIREMENT LAB WORK RETIREMENT LAB WORK RETIREMENT LABWORK RETIREMENT LABWORK LABWORK RETIREMENT LAB WORK LABWORK RETIREMENT LABWORK RETIREMENT LABWORK RETIREMENT LABWORK Chief Complaint RETIREMENT LABWORK RETIREMENT LAB WORK RETIREMENT LAB WORK RETIREMENT LAB WORK RETIREMENT LABWORK RETIREMENT LABWORK LABWORK RETIREMENT LAB WORK LABWORK RETIREMENT LABWORK RETIREMENT LABWORK RETIREMENT LABWORK RETIREMENT LABWORK Chief Complaint RETIREMENT LABWORK LABWORK RETIREMENT LAB WORK LABWORK RETIREMENT LABWORK RETIREMENT LABWORK RETIREMENT LABWORK RETIREMENT LABWORK RETIREMENT LABWORK LABWORK RETIREMENT LABWORK Chief Complaint LABWORK RETIREMENT LAB WORK LABWORK RETIREMENT LABWORK RETIREMENT LABWORK RETIREMENT LABWORK RETIREMENT LABWORK RETIREMENT LABWORK LABWORK LABWORK RETIREMENT LABWORK RETIREMENT LAB WORK RETIREMENT LABWORK RETIREMENT LAB WORK Chief Complaint LABWORK RETIREMENT LAB WORK LABWORK RETIREMENT LABWORK RETIREMENT LABWORK RETIREMENT LABWORK RETIREMENT LABWORK RETIREMENT LABWORK LABWORK LABWORK RETIREMENT LABWORK RETIREMENT LAB WORK RETIREMENT LABWORK RETIREMENT LAB WORK RETIREMENT LABWORK Chief Complaint LABWORK RETIREMENT LAB WORK LABWORK RETIREMENT LABWORK RETIREMENT LABWORK RETIREMENT LABWORK RETIREMENT LABWORK RETIREMENT LABWORK LABWORK LABWORK RETIREMENT LABWORK RETIREMENT LAB WORK RETIREMENT LABWORK RETIREMENT LAB WORK RETIREMENT LABWORK LABWORK Chief Complaint RETIREMENT LABWORK RETIREMENT LABWORK RETIREMENT LABWORK RETIREMENT LABWORK RETIREMENT LABWORK LABWORK LABWORK RETIREMENT LABWORK RETIREMENT LAB WORK RETIREMENT LABWORK RETIREMENT LAB WORK RETIREMENT LABWORK LABWORK RETIREMENT LABWORK Chief Complaint RETIREMENT LABWORK RETIREMENT LABWORK RETIREMENT LABWORK RETIREMENT LABWORK RETIREMENT LABWORK LABWORK LABWORK RETIREMENT LABWORK RETIREMENT LAB WORK RETIREMENT LABWORK RETIREMENT LAB WORK RETIREMENT LABWORK LABWORK RETIREMENT LABWORK LABWORK Chief Complaint RETIREMENT LABWORK LABWORK LABWORK RETIREMENT LABWORK RETIREMENT LAB WORK RETIREMENT LABWORK RETIREMENT LAB WORK RETIREMENT LABWORK LABWORK RETIREMENT LABWORK LABWORK RETIREMENT LAB WORK RETIREMENT LAB WORK RETIREMENT LABWORK Chief Complaint LABWORK RETIREMENT LABWORK LABWORK RETIREMENT LAB WORK RETIREMENT LAB WORK RETIREMENT LABWORK RETIREMENT LABWORK RETIREMENT LAB WORK RETIREMENT LAB WORK RETIREMENT LAB WORK LABWORK RETIREMENT LABWORK Chief Complaint RETIREMENT LAB WOR K RETIREMENT LAB WORK RETIREMENT LABWORK RETIREMENT LABWORK RETIREMENT LAB WORK RETIREMENT LAB WORK RETIREMENT LAB WORK LABWORK RETIREMENT LABWORK LABWORK RETIREMENT LAB WORK RETIREMENT LAB WORK Chief Complaint RETIREMENT LAB WOR K RETIREMENT LABWORK RETIREMENT LABWORK RETIREMENT LAB WORK RETIREMENT LAB WORK RETIREMENT LAB WORK LABWORK RETIREMENT LABWORK LABWORK RETIREMENT LAB WORK RETIREMENT LAB WORK Chief Complaint RETIREMENT LABWORK RETIREMENT LABWORK RETIREMENT LAB WORK RETIREMENT LAB WORK RETIREMENT LAB WORK LABWORK RETIREMENT LABWORK LABWORK RETIREMENT LAB WORK RETIREMENT LAB WORK RETIREMENT LABWORK LABWORK LABWORK Chief Complaint RETIREMENT LAB WOR K RETIREMENT LAB WORK RETIREMENT LAB WORK LABWORK RETIREMENT LABWORK LABWORK RETIREMENT LAB WORK RETIREMENT LAB WORK RETIREMENT LABWORK LABWORK LABWORK LABWORK LABWORK LABWORK Chief Complaint RETIREMENT LAB WOR K LABWORK RETIREMENT LABWORK LABWORK RETIREMENT LAB WORK RETIREMENT LAB WORK RETIREMENT LABWORK LABWORK LABWORK LABWORK LABWORK RETIREMENT LABWORK RETIREMENT LAB WORK LABWORK RETIREMENT LAB WORK RETIREMENT LAB WORK Chief Complaint RETIREMENT LAB WOR K LABWORK RETIREMENT LABWORK LABWORK RETIREMENT LAB WORK RETIREMENT LAB WORK RETIREMENT LABWORK LABWORK LABWORK LABWORK LABWORK RETIREMENT LABWORK RETIREMENT LAB WORK LABWORK RETIREMENT LAB WORK RETIREMENT LAB WORK RETIREMENT LABWORK Chief Complaint RETIREMENT LAB WOR K RETIREMENT LAB WORK RETIREMENT LABWORK LABWORK LABWORK LABWORK LABWORK RETIREMENT LABWORK RETIREMENT LAB WORK LABWORK RETIREMENT LAB WORK RETIREMENT LAB WORK RETIREMENT LABWORK NUSING HOME LAB WORK Chief Complaint RETIREMENT LAB WOR K RETIREMENT LABWORK LABWORK LABWORK LABWORK LABWORK RETIREMENT LABWORK RETIREMENT LAB WORK LABWORK RETIREMENT LAB WORK RETIREMENT LAB WORK RETIREMENT LABWORK NUSING HOME LAB WORK LABWORK Chief Complaint RETIREMENT LAB WOR K RETIREMENT LABWORK LABWORK LABWORK LABWORK LABWORK RETIREMENT LABWORK RETIREMENT LAB WORK LABWORK RETIREMENT LAB WORK RETIREMENT LAB WORK RETIREMENT LABWORK NUSING HOME LAB WORK RETIREMENT LABWORK LABWORK Chief Complaint LABWORK RETIREMENT LAB WORK RETIREMENT LAB WORK RETIREMENT LABWORK NUSING HOME LAB WORK RETIREMENT LABWORK LABWORK RETIREMENT LABWORK RETIREMENT LAB WORK LABWORK LABWORK Chief Complaint NUSING HOME LAB WORK RETIREMENT LABWORK LABWORK RETIREMENT LABWORK RETIREMENT LAB WORK LABWORK RETIREMENT LAB WORK LABWORK LABWORK Chief Complaint NUSING HOME LAB WORK RETIREMENT LABWORK LABWORK RETIREMENT LABWORK RETIREMENT LAB WORK LABWORK RETIREMENT LAB WORK LABWORK RETIREMENT LAB WORK LABWORK Chief Complaint RETIREMENT LABWORK LABWORK RETIREMENT LABWORK RETIREMENT LAB WORK LABWORK RETIREMENT LAB WORK LABWORK RETIREMENT LAB WORK LABWORK LABWORK Chief Complaint RETIREMENT LABWORK LABWORK RETIREMENT LABWORK RETIREMENT LAB WORK LABWORK RETIREMENT LAB WORK LABWORK RETIREMENT LAB WORK LABWORK LABWORK LABWORK Chief Complaint RETIREMENT LABWORK LABWORK RETIREMENT LABWORK RETIREMENT LAB WORK LABWORK RETIREMENT LAB WORK LABWORK RETIREMENT LAB WORK LABWORK LABWORK LABWORK LABWORK Chief Complaint RETIREMENT LABWORK LABWORK RETIREMENT LABWORK RETIREMENT LAB WORK LABWORK RETIREMENT LAB WORK LABWORK RETIREMENT LAB WORK LABWORK LABWORK RETIREMENT LAB WORK LABWORK LABWORK LABWORK Chief Complaint LABWORK RETIREMENT LABWORK RETIREMENT LAB WORK LABWORK RETIREMENT LAB WORK LABWORK RETIREMENT LAB WORK LABWORK LABWORK RETIREMENT LAB WORK LABWORK LABWORK LABWORK LABWORK LABWORK LABWORK LABWORK Chief Complaint RETIREMENT LABWORK RETIREMENT LAB WORK LABWORK RETIREMENT LAB WORK LABWORK RETIREMENT LAB WORK LABWORK LABWORK RETIREMENT LAB WORK LABWORK LABWORK LABWORK LABWORK LABWORK LABWORK LABWORK LABWORK Chief Complaint LABWORK RETIREMENT LAB WORK LABWORK RETIREMENT LAB WORK LABWORK LABWORK RETIREMENT LAB WORK LABWORK LABWORK LABWORK LABWORK LABWORK LABWORK LABWORK LABWORK LABWORK Chief Complaint RETIREMENT LABWORK LABWORK LABWORK LABWORK LABWORK RETIREMENT LABWORK RETIREMENT LAB WORK LABWORK RETIREMENT LAB WORK RETIREMENT LAB WORK RETIREMENT LABWORK NUSING HOME LAB WORK RETIREMENT LABWORK LABWORK RETIREMENT LABWORK RETIREMENT LAB WORK Chief Complaint Admit Date RETIREMENT LAB WORK March 13, 2024 5:00am LABWORK March 14, 2024 5 :00am RETIREMENT LAB WORK March 17 5:00am RETIREMENT LAB WORK March 18 5:00am RETIREMENT LAB WORK March 19 4:00am RETIREMENT LAB WORK March 20 5:00am RETIREMENT LAB WORK March 24 5:00am RETIREMENT LAB WORK March 27 5:00am LABWORK March 31, 2024 5:00am RETIREMENT LAB WORK April 04 5:00am LABWORK April 07, 2024 5 :00am RETIREMENT LAB WORK April 10, 2024 5:00am RETIREMENT LAB WORK April 14, 2024 5:00am RETIREMENT LAB WORK April 17 5:00am LABWORK April 21, 2024 5:00am RETIREMENT LAB WORK April 24 4:00am LABWORK April 28, 2024 5:00am RETIREMENT LAB WORK May 01 4:00am RETIREMENT LAB WORK May 05 4 5:00am RETIREMENT LAB WORK May 08, 2024 5:00am RETIREMENT LAB WORK May 09, 2024 4:00am LABWORK May 12, 2024 5: 00am RETIREMENT LAB WORK May 15, 2024 5:00am RETIREMENT LAB WORK May 19, 2024 4:00am RETIREMENT LAB WORK May 20, 2024 5:00am RETIREMENT LAB WORK May 22, 2024 5:00am LABWORK May 26, 2024 5 :00am RETIREMENT LAB WORK May 29, 2024 5:00am RETIREMENT LAB WORK June 02, 2024 5:00am RETIREMENT LAB WORK June 05, 2024 5:00am LABWORK June 09, 2024 5 :00am RETIREMENT LAB WORK June 12, 2024 5:00am RETIREMENT LAB WORK June 16 5:00am RETIREMENT LAB WORK June 19 5:00am LABWORK June 23, 2024 5:00am RETIREMENT LAB WORK June 26 5:00am RETIREMENT LAB WORK June 30 5:00am Chief Complaint Admit Date LABWORK April 07, 2024 5 :00am RETIREMENT LAB WORK April 10, 2024 5:00am RETIREMENT LAB WORK April 14, 2024 5:00am RETIREMENT LAB WORK April 17 5:00am LABWORK April 21, 2024 5:00am RETIREMENT LAB WORK April 24 4:00am LABWORK April 28, 2024 5:00am RETIREMENT LAB WORK May 01 4:00am RETIREMENT LAB WORK May 05 5:00am RETIREMENT LAB WORK May 08, 2024 5:00am RETIREMENT LAB WORK May 09, 2024 4:00am LABWORK May 12, 2024 5: 00am RETIREMENT LAB WORK May 15, 2024 5:00am RETIREMENT LAB WORK May 19, 2024 4:00am RETIREMENT LAB WORK May 20, 2024 5:00am RETIREMENT LAB WORK May 22, 2024 5:00am LABWORK May 26, 2024 5 :00am RETIREMENT LAB WORK May 29, 2024 5:00am RETIREMENT LAB WORK June 02, 2024 5:00am RETIREMENT LAB WORK June 05, 2024 5:00am LABWORK June 09, 2024 5 :00am RETIREMENT LAB WORK June 12, 2024 5:00am RETIREMENT LAB WORK June 16 5:00am RETIREMENT LAB WORK June 19 5:00am LABWORK June 23, 2024 5:00am RETIREMENT LAB WORK June 26 5:00am RETIREMENT LAB WORK June 30 5:00am RETIREMENT LAB WORK February 27th, 202 5 5:00am RETIREMENT LAB WORK July 07, 2024 4: 00am LABWORK July 11, 2024 5:00 am LABWORK July 14, 2024 5:0 0am RETIREMENT LAB WORK July 17, 2024 4 :00am RETIREMENT LAB WORK July 24, 2024 4 :00am Chief Complaint Admit Date RETIREMENT LAB WORK April 14, 2024 5:00am RETIREMENT LAB WORK April 17 5:00am LABWORK April 21, 2024 5:00am RETIREMENT LAB WORK April 24 4:00am LABWORK April 28, 2024 5:00am RETIREMENT LAB WORK May 01 4:00am RETIREMENT LAB WORK May 05 5:00am RETIREMENT LAB WORK May 08, 2024 5:00am RETIREMENT LAB WORK May 09, 2024 4:00am LABWORK May 12, 2024 5: 00am RETIREMENT LAB WORK May 15, 2024 5:00am RETIREMENT LAB WORK May 19, 2024 4:00am RETIREMENT LAB WORK May 20, 2024 5:00am RETIREMENT LAB WORK May 22, 2024 5:00am LABWORK May 26, 2024 5 :00am RETIREMENT LAB WORK May 29, 2024 5:00am RETIREMENT LAB WORK June 02, 2024 5:00am RETIREMENT LAB WORK June 05, 2024 5:00am LABWORK June 09, 2024 5 :00am RETIREMENT LAB WORK June 12, 2024 5:00am RETIREMENT LAB WORK June 16 5:00am RETIREMENT LAB WORK June 19 5:00am LABWORK June 23, 2024 5:00am RETIREMENT LAB WORK June 26 5:00am RETIREMENT LAB WORK June 30 5:00am RETIREMENT LAB WORK July 03 5:00am RETIREMENT LAB WORK July 07, 2024 4: 00am LABWORK July 11, 2024 5:00 am LABWORK July 14, 2024 5:0 0am RETIREMENT LAB WORK July 17, 2024 4 :00am RETIREMENT LAB WORK July 24, 2024 4 :00am LABWORK July 25, 2024 5:0 0am Chief Complaint Admit Date RETIREMENT LAB WORK April 14, 2024 5:00am RETIREMENT LAB WORK April 17 5:00am LABWORK April 21, 2024 5:00am RETIREMENT LAB WORK April 24 4:00am LABWORK April 28, 2024 5:00am RETIREMENT LAB WORK May 01 4:00am RETIREMENT LAB WORK May 05 5:00am RETIREMENT LAB WORK May 08, 2024 5:00am RETIREMENT LAB WORK May 09, 2024 4:00am LABWORK May 12, 2024 5: 00am RETIREMENT LAB WORK May 15, 2024 5:00am RETIREMENT LAB WORK May 19, 2024 4:00am RETIREMENT LAB WORK May 20, 2024 5:00am RETIREMENT LAB WORK May 22, 2024 5:00am LABWORK May 26, 2024 5 :00am RETIREMENT LAB WORK May 29, 2024 5:00am RETIREMENT LAB WORK June 02, 2024 5:00am RETIREMENT LAB WORK June 05, 2024 5:00am LABWORK June 09, 2024 5 :00am RETIREMENT LAB WORK June 12, 2024 5:00am RETIREMENT LAB WORK June 16 5:00am RETIREMENT LAB WORK June 19 5:00am LABWORK June 23, 2024 5:00am RETIREMENT LAB WORK June 26 5:00am RETIREMENT LAB WORK June 30 5:00am RETIREMENT LAB WORK July 03 5:00am RETIREMENT LAB WORK July 07, 2024 4: 00am LABWORK July 11, 2024 5:00 am LABWORK July 14, 2024 5:0 0am RETIREMENT LAB WORK July 17, 2024 4 :00am RETIREMENT LAB WORK July 21, 2024 5 :00am RETIREMENT LAB WORK July 24, 2024 4 :00am LABWORK July 25, 2024 5:0 0am RETIREMENT LAB WORK July 31, 2024 4 :00am Chief Complaint Admit Date RETIREMENT LAB WORK April 17 5:00am LABWORK April 21, 2024 5:00am RETIREMENT LAB WORK April 24 4:00am LABWORK April 28, 2024 5:00am RETIREMENT LAB WORK May 01 4:00am RETIREMENT LAB WORK May 05 5:00am RETIREMENT LAB WORK May 08, 2024 5:00am RETIREMENT LAB WORK May 09, 2024 4:00am LABWORK May 12, 2024 5: 00am RETIREMENT LAB WORK May 15, 2024 5:00am RETIREMENT LAB WORK May 19, 2024 4:00am RETIREMENT LAB WORK May 20, 2024 5:00am RETIREMENT LAB WORK May 22, 2024 5:00am LABWORK May 26, 2024 5 :00am RETIREMENT LAB WORK May 29, 2024 5:00am RETIREMENT LAB WORK June 02, 2024 5:00am RETIREMENT LAB WORK June 05, 2024 5:00am LABWORK June 09, 2024 5 :00am RETIREMENT LAB WORK June 12, 2024 5:00am RETIREMENT LAB WORK June 16 5:00am RETIREMENT LAB WORK June 19 5:00am LABWORK June 23, 2024 5:00am RETIREMENT LAB WORK June 26 5:00am RETIREMENT LAB WORK June 30 5:00am RETIREMENT LAB WORK July 03 5:00am RETIREMENT LAB WORK July 07, 2024 4: 00am LABWORK July 11, 2024 5:00 am LABWORK July 14, 2024 5:0 0am RETIREMENT LAB WORK July 17, 2024 4 :00am RETIREMENT LAB WORK July 21, 2024 5 :00am RETIREMENT LAB WORK July 24, 2024 4 :00am LABWORK July 25, 2024 5:0 0am RETIREMENT LAB WORK July 28, 2024 5 :00am RETIREMENT LAB WORK July 31, 2024 4 :00am Chief Complaint Admit Date RETIREMENT LAB WORK April 24 4:00am LABWORK April 28, 2024 5:00am RETIREMENT LAB WORK May 01 4:00am RETIREMENT LAB WORK May 05 5:00am RETIREMENT LAB WORK May 08, 2024 5:00am RETIREMENT LAB WORK May 09, 2024 4:00am LABWORK May 12, 2024 5: 00am RETIREMENT LAB WORK May 15, 2024 5:00am RETIREMENT LAB WORK May 19, 2024 4:00am RETIREMENT LAB WORK May 20, 2024 5:00am RETIREMENT LAB WORK May 22, 2024 5:00am LABWORK May 26, 2024 5 :00am RETIREMENT LAB WORK May 29, 2024 5:00am RETIREMENT LAB WORK June 02, 2024 5:00am RETIREMENT LAB WORK June 05, 2024 5:00am LABWORK June 09, 2024 5 :00am RETIREMENT LAB WORK June 12, 2024 5:00am RETIREMENT LAB WORK June 16 5:00am RETIREMENT LAB WORK June 19 5:00am LABWORK June 23, 2024 5:00am RETIREMENT LAB WORK June 26 5:00am RETIREMENT LAB WORK June 30 5:00am RETIREMENT LAB WORK July 03 5:00am RETIREMENT LAB WORK July 07, 2024 4: 00am LABWORK July 11, 2024 5:00 am LABWORK July 14, 2024 5:0 0am RETIREMENT LAB WORK July 17, 2024 4 :00am RETIREMENT LAB WORK July 21, 2024 5 :00am RETIREMENT LAB WORK July 24, 2024 4 :00am LABWORK July 25, 2024 5:0 0am RETIREMENT LAB WORK July 28, 2024 5 :00am RETIREMENT LAB WORK July 31, 2024 4 :00am LABWORK August 04, 2024 5:0 0am Chief Complaint Admit Date RETIREMENT LAB WORK May 15, 2024 5:00am RETIREMENT LAB WORK May 19, 2024 4:00am RETIREMENT LAB WORK May 20, 2024 5:00am RETIREMENT LAB WORK May 22, 2024 5:00am LABWORK May 26, 2024 5 :00am RETIREMENT LAB WORK May 29, 2024 5:00am RETIREMENT LAB WORK June 02, 2024 5:00am RETIREMENT LAB WORK June 05, 2024 5:00am LABWORK June 09, 2024 5 :00am RETIREMENT LAB WORK June 12, 2024 5:00am RETIREMENT LAB WORK June 16 5:00am RETIREMENT LAB WORK June 19 5:00am LABWORK June 23, 2024 5:00am RETIREMENT LAB WORK June 26 5:00am RETIREMENT LAB WORK June 30 5:00am RETIREMENT LAB WORK July 03 5:00am RETIREMENT LAB WORK July 07, 2024 4: 00am LABWORK July 11, 2024 5:00 am LABWORK July 14, 2024 5:0 0am RETIREMENT LAB WORK July 17, 2024 4 :00am RETIREMENT LAB WORK July 21, 2024 5 :00am RETIREMENT LAB WORK July 24, 2024 4 :00am LABWORK July 25, 2024 5:0 0am RETIREMENT LAB WORK July 28, 2024 5 :00am RETIREMENT LAB WORK July 31, 2024 4 :00am LABWORK August 04, 2024 5:0 0am LABWORK August 07, 2024 5:00 am RETIREMENT LAB WORK August 11, 2024 5: 00am RETIREMENT LAB WORK August 14, 2024 5 :00am RETIREMENT LAB WORK August 18, 2024 5 :00am Chief Complaint Admit Date RETIREMENT LAB WORK May 20, 2024 5:00am RETIREMENT LAB WORK May 22, 2024 5:00am LABWORK May 26, 2024 5 :00am RETIREMENT LAB WORK May 29, 2024 5:00am RETIREMENT LAB WORK June 02, 2024 5:00am RETIREMENT LAB WORK June 05, 2024 5:00am LABWORK June 09, 2024 5 :00am RETIREMENT LAB WORK June 12, 2024 5:00am RETIREMENT LAB WORK June 16 5:00am RETIREMENT LAB WORK June 19 5:00am LABWORK June 23, 2024 5:00am RETIREMENT LAB WORK June 26 5:00am RETIREMENT LAB WORK June 30 5:00am RETIREMENT LAB WORK July 03 5:00am RETIREMENT LAB WORK July 07, 2024 4: 00am LABWORK July 11, 2024 5:00 am LABWORK July 14, 2024 5:0 0am RETIREMENT LAB WORK July 17, 2024 4 :00am RETIREMENT LAB WORK July 21, 2024 5 :00am RETIREMENT LAB WORK July 24, 2024 4 :00am LABWORK July 25, 2024 5:0 0am RETIREMENT LAB WORK July 28, 2024 5 :00am RETIREMENT LAB WORK July 31, 2024 4 :00am LABWORK August 04, 2024 5:0 0am LABWORK August 07, 2024 5:00 am RETIREMENT LAB WORK August 11, 2024 5: 00am RETIREMENT LAB WORK August 14, 2024 5 :00am RETIREMENT LAB WORK August 18, 2024 5 :00am LABWORK August 28, 2024 5:0 0am Chief Complaint Admit Date RETIREMENT LAB WORK May 22, 2024 5:00am LABWORK May 26, 2024 5 :00am RETIREMENT LAB WORK May 29, 2024 5:00am RETIREMENT LAB WORK June 02, 2024 5:00am RETIREMENT LAB WORK June 05, 2024 5:00am LABWORK June 09, 2024 5 :00am RETIREMENT LAB WORK June 12, 2024 5:00am RETIREMENT LAB WORK June 16 5:00am RETIREMENT LAB WORK June 19 5:00am LABWORK June 23, 2024 5:00am RETIREMENT LAB WORK June 26 5:00am RETIREMENT LAB WORK June 30 5:00am RETIREMENT LAB WORK July 03 5:00am RETIREMENT LAB WORK July 07, 2024 4: 00am LABWORK July 11, 2024 5:00 am LABWORK July 14, 2024 5:0 0am RETIREMENT LAB WORK July 17, 2024 4 :00am RETIREMENT LAB WORK July 21, 2024 5 :00am RETIREMENT LAB WORK July 24, 2024 4 :00am LABWORK July 25, 2024 5:0 0am RETIREMENT LAB WORK July 28, 2024 5 :00am RETIREMENT LAB WORK July 31, 2024 4 :00am LABWORK August 04, 2024 5:0 0am LABWORK August 07, 2024 5:00 am RETIREMENT LAB WORK August 11, 2024 5: 00am RETIREMENT LAB WORK August 14, 2024 5 :00am RETIREMENT LAB WORK August 18, 2024 5 :00am RETIREMENT LAB WORK August 21, 2024 5 :00am LABWORK August 28, 2024 5:0 0am LABWORK September 01, 2024 5:0 0am Chief Complaint Admit Date RETIREMENT LAB WORK June 05, 2024 5:00am LABWORK June 09, 2024 5 :00am RETIREMENT LAB WORK June 12, 2024 5:00am RETIREMENT LAB WORK June 16 5:00am RETIREMENT LAB WORK June 19 5:00am LABWORK June 23, 2024 5:00am RETIREMENT LAB WORK June 26 5:00am RETIREMENT LAB WORK June 30 5:00am RETIREMENT LAB WORK July 03 5:00am RETIREMENT LAB WORK July 07, 2024 4: 00am LABWORK July 11, 2024 5:00 am LABWORK July 14, 2024 5:0 0am RETIREMENT LAB WORK July 17, 2024 4 :00am RETIREMENT LAB WORK July 21, 2024 5 :00am RETIREMENT LAB WORK July 24, 2024 4 :00am LABWORK July 25, 2024 5:0 0am RETIREMENT LAB WORK July 28, 2024 5 :00am RETIREMENT LAB WORK July 31, 2024 4 :00am LABWORK August 04, 2024 5:0 0am LABWORK August 07, 2024 5:00 am RETIREMENT LAB WORK August 11, 2024 5: 00am RETIREMENT LAB WORK August 14, 2024 5 :00am RETIREMENT LAB WORK August 18, 2024 5 :00am RETIREMENT LAB WORK August 21, 2024 5 :00am RETIREMENT LAB WORK August 25, 2024 4 :00am LABWORK August 28, 2024 5:0 0am LABWORK September 01, 2024 5:0 0am LABWORK September 04, 2024 5:00am Chief Complaint Admit Date RETIREMENT LAB WORK June 05, 2024 5:00am LABWORK June 09, 2024 5 :00am RETIREMENT LAB WORK June 12, 2024 5:00am RETIREMENT LAB WORK June 16 5:00am RETIREMENT LAB WORK June 19 5:00am LABWORK June 23, 2024 5:00am RETIREMENT LAB WORK June 26 5:00am RETIREMENT LAB WORK June 30 5:00am RETIREMENT LAB WORK July 03 5:00am RETIREMENT LAB WORK July 07, 2024 4: 00am LABWORK July 11, 2024 5:00 am LABWORK July 14, 2024 5:0 0am RETIREMENT LAB WORK July 17, 2024 4 :00am RETIREMENT LAB WORK July 21, 2024 5 :00am RETIREMENT LAB WORK July 24, 2024 4 :00am LABWORK July 25, 2024 5:0 0am RETIREMENT LAB WORK July 28, 2024 5 :00am RETIREMENT LAB WORK July 31, 2024 4 :00am LABWORK August 04, 2024 5:0 0am LABWORK August 07, 2024 5:00 am RETIREMENT LAB WORK August 11, 2024 5: 00am RETIREMENT LAB WORK August 14, 2024 5 :00am RETIREMENT LAB WORK August 18, 2024 5 :00am RETIREMENT LAB WORK August 21, 2024 5 :00am RETIREMENT LAB WORK August 25, 2024 4 :00am LABWORK August 28, 2024 5:0 0am LABWORK September 01, 2024 5:0 0am LABWORK September 04, 2024 5:00am LABWORK September 15, 2024 5:00a m Chief Complaint Admit Date RETIREMENT LAB WORK June 19 5:00am LABWORK June 23, 2024 5:00am RETIREMENT LAB WORK June 26 5:00am RETIREMENT LAB WORK June 30 5:00am RETIREMENT LAB WORK July 03 5:00am RETIREMENT LAB WORK July 07, 2024 4: 00am LABWORK July 11, 2024 5:00 am LABWORK July 14, 2024 5:0 0am RETIREMENT LAB WORK July 17, 2024 4 :00am RETIREMENT LAB WORK July 21, 2024 5 :00am RETIREMENT LAB WORK July 24, 2024 4 :00am LABWORK July 25, 2024 5:0 0am RETIREMENT LAB WORK July 28, 2024 5 :00am RETIREMENT LAB WORK July 31, 2024 4 :00am LABWORK August 04, 2024 5:0 0am LABWORK August 07, 2024 5:00 am RETIREMENT LAB WORK August 11, 2024 5: 00am RETIREMENT LAB WORK August 14, 2024 5 :00am RETIREMENT LAB WORK August 18, 2024 5 :00am RETIREMENT LAB WORK August 21, 2024 5 :00am RETIREMENT LAB WORK August 25, 2024 4 :00am LABWORK August 28, 2024 5:0 0am LABWORK September 01, 2024 5:0 0am LABWORK September 04, 2024 5:00am RETIREMENT LAB WORK September 08, 2024 4:00 am RETIREMENT LAB WORK September 11, 2024 5:00 am LABWORK September 15, 2024 5:00a m RETIREMENT LAB WORK September 25, 2024 5:0 0am RETIREMENT LAB WORK September 30, 2024 4:0 0am Chief Complaint Admit Date RETIREMENT LAB WORK June 12, 2024 5:00am RETIREMENT LAB WORK June 16 5:00am RETIREMENT LAB WORK June 19 5:00am LABWORK June 23, 2024 5:00am RETIREMENT LAB WORK June 26 5:00am RETIREMENT LAB WORK June 30 5:00am RETIREMENT LAB WORK July 03 5:00am RETIREMENT LAB WORK July 07, 2024 4: 00am LABWORK July 11, 2024 5:00 am LABWORK July 14, 2024 5:0 0am RETIREMENT LAB WORK July 17, 2024 4 :00am RETIREMENT LAB WORK July 21, 2024 5 :00am RETIREMENT LAB WORK July 24, 2024 4 :00am LABWORK July 25, 2024 5:0 0am RETIREMENT LAB WORK July 28, 2024 5 :00am RETIREMENT LAB WORK July 31, 2024 4 :00am LABWORK August 04, 2024 5:0 0am LABWORK August 07, 2024 5:00 am RETIREMENT LAB WORK August 11, 2024 5: 00am RETIREMENT LAB WORK August 14, 2024 5 :00am RETIREMENT LAB WORK August 18, 2024 5 :00am RETIREMENT LAB WORK August 21, 2024 5 :00am RETIREMENT LAB WORK August 25, 2024 4 :00am LABWORK August 28, 2024 5:0 0am LABWORK September 01, 2024 5:0 0am LABWORK September 04, 2024 5:00am RETIREMENT LAB WORK September 08, 2024 4:00 am LABWORK September 15, 2024 5:00a m Chief Complaint Admit Date RETIREMENT LAB WORK July 07, 2024 4: 00am LABWORK July 11, 2024 5:00 am LABWORK July 14, 2024 5:0 0am RETIREMENT LAB WORK July 17, 2024 4 :00am RETIREMENT LAB WORK July 21, 2024 5 :00am RETIREMENT LAB WORK July 24, 2024 4 :00am LABWORK July 25, 2024 5:0 0am RETIREMENT LAB WORK July 28, 2024 5 :00am RETIREMENT LAB WORK July 31, 2024 4 :00am LABWORK August 04, 2024 5:0 0am LABWORK August 07, 2024 5:00 am RETIREMENT LAB WORK August 11, 2024 5: 00am RETIREMENT LAB WORK August 14, 2024 5 :00am RETIREMENT LAB WORK August 18, 2024 5 :00am RETIREMENT LAB WORK August 21, 2024 5 :00am RETIREMENT LAB WORK August 25, 2024 4 :00am LABWORK August 28, 2024 5:0 0am LABWORK September 01, 2024 5:0 0am LABWORK September 04, 2024 5:00am RETIREMENT LAB WORK September 08, 2024 4:00 am RETIREMENT LAB WORK September 11, 2024 5:00 am LABWORK September 15, 2024 5:00a m RETIREMENT LAB WORK September 18, 2024 5:0 0am RETIREMENT LAB WORK September 22, 2024 5:0 0am RETIREMENT LAB WORK September 25, 2024 5:0 0am RETIREMENT LAB WORK September 30, 2024 4:0 0am RETIREMENT LAB WORK October 02, 2024 5:0 0am RETIREMENT LAB WORK October 09, 2024 5:0 0am Chief Complaint Admit Date RETIREMENT LAB WORK October 09, 2024 5:0 0am LABWORK October 13, 2024 5:00a m RETIREMENT LAB WORK October 16, 2024 5: 00am RETIREMENT LAB WORK October 20, 2024 4: 00am RETIREMENT LAB WORK October 23, 2024 5: 00am RETIREMENT LAB WORK October 27, 2024 4: 00am RETIREMENT LAB WORK October 30, 2024 6: 35am LABWORK November 03, 2024 5:00 am RETIREMENT LAB WORK November 06, 2024 4:0 0am RETIREMENT LAB WORK November 10, 2024 4:0 0am RETIREMENT LAB WORK November 13, 2024 5: 00am RETIREMENT LAB WORK November 17, 2024 5: 00am RETIREMENT LAB WORK November 20, 2024 5: 00am RETIREMENT LAB WORK November 24, 2024 5: 00am RETIREMENT LAB WORK November 27, 2024 5: 00am LABWORK November 28, 2024 5:00 am LABWORK December 01, 2024 5:00 am RETIREMENT LAB WORK December 02, 2024 4: 00am RETIREMENT LAB WORK December 04, 2024 5: 00am RETIREMENT LAB WORK December 08, 2024 5 :00am LABWORK December 11, 2024 6:0 0am RETIREMENT LAB WORK December 15, 2024 4:00am RETIREMENT LAB WORK December 18, 2024 5:00am RETIREMENT LAB WORK December 22, 2024 4:00am LABWORK December 24, 2024 5: 00am RETIREMENT LAB WORK December 25, 2024 5:00am RETIREMENT LAB WORK December 26, 2024 5:00am LABWORK December 29, 2024 5: 00am RETIREMENT LAB WORK January 01, 2025 5:00am RETIREMENT LAB WORK January 06 5:00am LABWORK January 08, 2025 5:00am RETIREMENT LAB WORK January 12 4:00am RETIREMENT LAB WORK January 15 5:00am LABWORK January 19, 2025 5:00am RETIREMENT LAB WORK January 26 4:00am Chief Complaint Admit Date LABWORK November 03, 2024 5:00 am RETIREMENT LAB WORK November 06, 2024 4:0 0am RETIREMENT LAB WORK November 10, 2024 4:0 0am RETIREMENT LAB WORK November 13, 2024 5: 00am RETIREMENT LAB WORK November 17, 2024 5: 00am RETIREMENT LAB WORK November 20, 2024 5: 00am RETIREMENT LAB WORK November 24, 2024 5: 00am RETIREMENT LAB WORK November 27, 2024 5: 00am LABWORK November 28, 2024 5:00 am LABWORK December 01, 2024 5:00 am RETIREMENT LAB WORK December 02, 2024 4: 00am RETIREMENT LAB WORK December 04, 2024 5: 00am RETIREMENT LAB WORK December 08, 2024 5 :00am LABWORK December 11, 2024 6:0 0am RETIREMENT LAB WORK December 15, 2024 4:00am RETIREMENT LAB WORK December 18, 2024 5:00am RETIREMENT LAB WORK December 22, 2024 4:00am LABWORK December 24, 2024 5: 00am RETIREMENT LAB WORK December 25, 2024 5:00am RETIREMENT LAB WORK December 26, 2024 5:00am LABWORK December 29, 2024 5: 00am RETIREMENT LAB WORK January 01, 2025 5:00am RETIREMENT LAB WORK January 06 5:00am LABWORK January 08, 2025 5:00am RETIREMENT LAB WORK January 12 4:00am RETIREMENT LAB WORK January 15 5:00am LABWORK January 19, 2025 5:00am RETIREMENT LAB WORK January 22 5:00am RETIREMENT LAB WORK January 26 4:00am RETIREMENT LAB WORK January 29 7:30am RETIREMENT LAB WORK February 02 4:00am RETIREMENT LAB WORK February 05, 2025 5:00am RETIREMENT LAB WORK February 16, 2025 4:00am Reason for Referral Specialty Diagnoses / Procedures Referred By Aki kumari Referred To Contact Urology Diagnoses Other fatigue Lanette Munguia DO [address] [place] [address] [facility] [address] [place] [id number] Referral ID Status Reason Start Date Expiration Date V isits Requested Visits Authorized [id number] Open Specialty Services Required 11/01/2021 11/01/2022 1 1 Scheduling Instructions [facility] [place] [id number] Specialty Diagnoses / Procedures Referred By Aki kumari Referred To Contact IP Unit Diagnoses Heel ulceration, left, with unspecified severity (HCC) Henry Hidalgo [place] [address] [place] [address] [facility] [address] [place] [address] Referral ID Status Reason Start Date Expiration Date V isits Requested Visits Authorized [id number] Open Specialty Services Required 12/22/2021 12/22/2022 1 1 Scheduling Instructions [facility] [address] [place] [address] Comments Please use the parking lot located on [employer] or [address]. There are handicap parking spots located in a small lot beside the wound care entrance off of [address]. Please be advised there is a small incline from those handicap spots to our main door. Bring photo ID and insurance card to photocopy. Wear loose fitting clothing (to easily access wound). Bring list of medications (or can be sent by office). Check in at Registration for your first visit. Please call us directly with any questions [phone]. We look forward to helping you heal. Specialty Diagnoses / Procedures Referred By Contdesiree t Referred To Contact Radiology Diagnoses Left flank pain Calculus of ureter Procedures CT abdomen pelvis wo IV contrast Rebecca Buck MD [address] [place] [address] Referral ID Status Reason Start Date Expiration Date V isits Requested Visits Authorized [id number] Pending Review 08/13/2023 08/12/2024 1 1 Referral ID Status Reason Start Date Expiration Date Visits Re quested Visits Authorized [id number] Closed 08/17/2023 09/16/2023 1 1 Additional Source Comments Source Comments (unrecognize d section and content) In the event this informatio n is protected by the Federal Confidentiality of Alcohol and Drug Abuse Patient Records regulations: The Federal rules restrict any use of the information to criminally investigate or prosecute any alcohol or drug abuse patient.[facility], IncIn the event this information is protected by the Federal Confidentiality of Alcohol and Drug Abuse Patient Records regulations: The Federal rules restrict any use of the information to criminally investigate or prosecute any alcohol or drug abuse patient.[facility] (unrecognized sect ion and content) No Status Records FoundNo Status Records FoundNo Status Records FoundNo Status Records FoundNo Status Records FoundNo Status Records FoundNo Status Records FoundNo Status Records FoundNo Status Records FoundNo Status Records Found INFORMATION SOURCE (unrecogn ized section and content) DATE CREATED AUTHOR 05/20/2021 [facility] DATE CREATED AUTHOR AUTHOR'S ORGANIZ ATION 06/07/[address] [facility] DATE CREATED AUTHOR AUTHOR'S ORGANIZ ATION 08/02/2021 [facility] DATE CREATED AUTHOR AUTHOR'S ORGANIZ ATION 12/09/2021 [facility] DATE CREATED AUTHOR AUTHOR'S ORGANIZ ATION 12/29/2021 [facility] DATE CREATED AUTHOR AUTHOR'S ORGANIZ ATION 02/04/2022 [facility] DATE CREATED AUTHOR AUTHOR'S ORGANIZ ATION 03/03/2022 [facility] DATE CREATED AUTHOR AUTHOR'S ORGANIZ ATION 09/15/2023 [facility] DATE CREATED AUTHOR AUTHOR'S ORGANIZ ATION 03/18/2025 [facility] Reason for Visit (unrecogniz ed section and content) Reason Comments Missed Appointment Reason Comments Leg Swelling Blood clots Reason Comments Altered Mental Status Pt presents to ED via [facility] for complaint listed. Pt is from [place] [facility]. Pt's LKW was 1000 hours today. Per EMS, pt had a - [place]. Pt denies CP, SOB, and N/V. Pt seems slow to respond, slightly confused at this time. Reason Comments Osteomyelitis Patient from [facility] did xrays on left lower leg [...] Buck MD [address] [place] [address] Referral ID Status Reason Start Date Expiration Date Visits Re quested Visits Authorized [id number] Closed 08/17/2023 09/16/2023 1 1 Reason Comments [...] 2024 End: June 16, 2024 Dr. Kvng NVOAK MD [...] July 21, 2024 End: July 21, 2024 Kaorn NOVAK MD Attending Provider Active [...] Stalye MD Primary Care Provider Active Start: September [...] Status Dates Carlos NOVAK Attending Provider Active Shipping Lead Person Relationship Specialty Start Date End Date Mateus Burris [address] [place] [address] PCP - General Family Practice 11/12/19 Shipping Lead Person Relationship Specialty [place] [address] [place] [address] PCP - General Family Medicine 09/09/20 Shipping Lead Person Relationship Specialty [place] [address] [place] [address] PCP - General Family Medicine 09/09/20 Shipping Lead Person Relationship Specialty Start [place] [address] [place] [address] PCP - General Family Medicine 09/09/20 Shipping Lead Person Relationship Specialty Start Date End Date Carlos Cavazos MD [address] [place] [address] PCP - General Internal Medicine 02/20/22 Team [...] Monika Staley MD Primary Care Provider Active Shipping Lead Person Relationship Specialty Start Date End Date Carlos Cavazos [address] [place] [phone] PCP - General 12/21/21 Rebecca Buck MD [address] [place] [address] Surgeon Urology 06/25/23 Team Status: Inactive Member Role Status Dates Carlos NOVAK Attending Provider, Referring Provi lupillo Active Dr. Monika Staely MD Primary Care Provider Active Team Status: [...] NOVAK Attending Provider, Referring Provi lupillo Active Shipping Lead Person Relationship Specialty Start Date End Date Carlos Cavazos [address] [place] [phone] PCP - General 12/21/21 Rebecca Buck MD [address] [address] Surgeon Urology 06/25/23 Shipping Lead Person Relationship Specialty Start Date End Date Carlos Cavazos [address] [place] [phone] PCP - General 12/21/21 Rebecca Buck MD [address] [address] Surgeon Urology 06/25/23 Shipping Lead Person Relationship Specialty Start Date End Date Carlos Cavazos [address] [place] [phone] PCP - General 12/21/21 Rebecca Bcuk MD [address] [address] Surgeon Urology 06/25/23 Shipping Lead Person Relationship Specialty Start Date End Date Carlos Cavazos [address] [place] [phone] PCP - General 12/21/21 Rebecca Buck MD [address] [address] Surgeon Urology 06/25/23 Shipping Lead Person Relationship Specialty Start Date End Date Carlos Cavazos [address] [place] [phone] PCP - General 12/21/21 Rebecca Buck MD [address] [address] Surgeon Urology 06/25/23 Shipping Lead Person Relationship Specialty Start Date End Date Carlos Cavazos [address] [place] [phone] PCP - General 12/21/21 Rebecca Buck MD [address] [address] Surgeon Urology 06/25/23 Team Status: Inactive Member [...] Provider Active Start: September 11, 2024 Karon NOAVK MD Attending Provider Active Start: September 11, [...] Hoff RN) 815 (Given - Provider: Rosanne oHff RN) 102 (Given - Provider: Fabi Subramanian [...] Oral, ONCE Warfarin, 1 dose, On [facility] 10/29/21 at 1800, Indication of [...] BE BASED ON THE PRIMARY CLINICAL RECORDS. [facility] [employer] [facility]. provides no warranty or guarantee of the accuracy or completeness of information in this document.
[2025-04-13 08:42] LABS: Hematocrit 35.7 % (40-54); Hemoglobin 11.0 g/dL (13.0-16.5); Mean Corp Hgb Conc 30.8 g/dL (32-36); Mean Corpuscular Volume 84.6 fL (80-94); Mean Platelet Vol. 9.7 fl (6.2-12.0); POSITIVE DIFFERENTIAL YES; POSITIVE MORPHOLOGY YES; Platelet Count 383 K/mm3 (150-450); RBC Distribution Width CV 15.8 % (11.6-14.6); RBC Distribution Width SD 48.8 fl (35.1-43.9); Red Blood Count 4.22 M/mm3 (4.6-6.2); White Blood Count 17.3 K/mm3 (4.4-11.0)
[2025-04-13 08:54] LABS: Prothrombin Time (Protime)PT. 24.9 SECONDS (11.7-14.9)
[2025-04-13 08:58] LABS: Anion Gap 9 (5-15); BUN 16 mg/dL (4-19); BUN/Creat Ratio 22.4 RATIO (10-20); Calcium,Total 8.9 mg/dL (7.6-11.0); Carbon Dioxide 24.2 mmol/L (21.0-32.0); Chloride 106 mmol/L (98-108); Glucose 89 mg/dL (70-99); Potassium 4.2 mmol/L (3.3-5.1)
[2025-04-15 10:07] LABS: Differential Indicated MANUAL DIFF
[2025-04-15 10:13] LABS: Neutrophil-Segmented 42 % (47-70); Red Cell Morphology NORM C+C NORMAL (NORM C&C); Total Cells Counted 100 (MANUAL DIFF)
[2025-04-18 08:08] LABS: KEPPRA (LEVETIRACETAM) 26.8 ug/mL (10.0-40.0)
== END ==
LOC: OLS.SANC 05:00
PROVIDERS: PCP General Practice
DX: Z79.01 Long term (current) use of anticoagulants; Z79.899 Other long term (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; E87.6 Hypokalemia; I11.0 Hypertensive heart disease with heart failure; I50.9 Heart failure, unspecified
CPT/HCPCS: 36415; 80048; 80177; 85025; 85610

== ENCOUNTER → 2025-04-21 04:00 | Outpatient (REF) | payer MEDICARE, MEDICAID, SELFPAY ==
--- OUTSIDE RECORDS SUMMARY | 2025-04-21 03:36 | XMS RPT_ITS | CCD ---
Author Organization [facility] Care Team Providers Care Bisque Kiln Placer Name Role Phone Mateus Burris Primary Care [...] Provider Monika Staley MD Primary Care Provider [phone] Carlos Cavazos Primary Care Unavailable Carlos Cavazos Referring Unavailable Cliff Espinoza Attending Unavailable Carlos Cavazos Primary Care Unavailable Carlos Cavazos Referring Unavailable Carlos Cavazos Attending Unavailable Carlos Cavazos Attending Unavailable Carlos Cavazos Primary Care Unavailable Carlos Cavazos Referring Unavailable PROVIDER, UNKNOWN Referring Unavailable Mateus Burris Primary Care Unavailable Karon Corrales Attending Unavailable Carlos Cavazos MD Primary Care Provider [phone] PROVIDER, UNKNOWN Primary Care Unavailable PROVIDER, UNKNOWN Referring Unavailable LANETTE MUNGUIA Attending Unavailable SHARON HSIEH Attending Jeanine vailable PROVIDER, UNKNOWN Primary Care Unavailable PROVIDER, UNKNOWN Referring Unavailable PROVIDER, UNKNOWN Referring Unavailable MATEUS BURRIS Primary Care Unavailabl DANTE Barrera Attending Unavailable Kenny, Carlos Primary Care Provider [phone] Quinn VALLADARES, Rebecca L Unavailable Quinn VALLADARES, Rebecca L Unavailable REBECCA BUCK Attending Unavailable REBECCA BUCK Referring Unavailable CARLOS CAVAZOS Primary Care Unavailable REBECCA BUCK Attending Unavailable KENNY, CARLOS Primary Care Unavailable REBECCA BUCK Attending Unavailable KENNY, CARLOS Primary Care Unavailable Luís VALLADARES, Dr. Monika Horner Primary Care Provider [facility] Attending Provider [phone] Carlos Nelson Attending Provider Jonh Pascual MD, [...] OLS, Mahaveer Attending Unavail able [facility], Daisy Attending Unavai lable Luís, Shiela Primary Care Unavailable Crisostmoo OLS, Babbaljeet Attending Unavailable Luís, Shiela Primary Care Unavailable [facility] Daisy Attending Unavai lable Luís, Shiela Primary Care [...] Unavailable Crisostomo OLS, Kvng Attending Unavailable Luís, Hsiela Primary Care Unavailable Mukkamalla OLS, Melindaer Referring [...] Primary Care Unavailable MaribelCarlos Flood Attending Unavailable [place], [facility] Unavailable Allergies Allergy Classification Reported Allergen(s) Allergy Type Date of Onset Reaction(s) Facility (13 sources) [facility]: (15 sources) Alcohol Propensity to adverse reactions to drug 3 Rash, Hives, Other: See Comments, Other [facility] Work Phone: (1 source) Latex Drug Allergy 0 Rash [facility] (8 sources) Cortisone Drug Allergy 2 [facility] (7 sources) Latex Allergy to substance 0 Rash [facility] Medications Current Medications Medication Drug Class(es) [...] Start: 11-01-2021 take 1 capsule by mo [facility] once daily tamsulosin (FLOMAX) 0.4 [...] Comment on above: [facility]. Antacid TABS (6 sources) [...] once daily. Pentoxifylline (1 source) Blood Viscosity Imagery Analyst PENTOXIFYLLINE ORAL Take by mouth. 0 Active Comment on above: Take by mouth. petrolatum 0.41 mg/mg topical ointment (1 source) Start : 08-20 white petrolatum (AQUAPHOR) 41 % topical ointment Apply to affected area once daily. 0 08/20/2021 Active Comment on above: Apply to affected ar ea once daily. 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, [address] PT Coag (PPP) [Time] 25.1 s High 11.7-14.9 [facility] Comment on above: Order Comment: 411-2 Performed By: #### L 300.3900 ####[facility] [address] [place], [address] Prothrombin Time w/INRon INR Coag (PPP) [Relative time] 2.3 {INR} Normal [facility] Comment on above: Order Comment: 411-2 Performed By: #### L 300.3900 ####[facility] [address] [place], [address] PT Coag (PPP) [Time] 25.5 s High 11.7-14.9 [facility] Comment on above: Order Comment: 411-2 Performed By: #### L 300.3900 ####[facility] [address] [place], [address] Prothrombin Time w/INRon INR Coag (PPP) [Relative time] 2.0 {INR} Normal [facility] Comment on above: Order Comment: 411.2 Performed By: #### L 300.3900 ####[facility] [address] [place], [address] PT Coag (PPP) [Time] 22.8 s High 11.7-14.9 [facility] Comment on above: Order Comment: 411.2 Performed By: #### L 300.3900 ####[facility] [address] [place], [address] Prothrombin Time w/INRon INR Coag (PPP) [Relative time] 1.7 {INR} Normal [facility] Comment on above: Order Comment: 411-2 Performed By: #### L 300.3900 ####[facility] [address] [place], [address] PT Coag (PPP) [Time] 20.5 s High 11.7-14.9 [facility] Comment on above: Order Comment: 411-2 Performed By: #### L 300.3900 ####[facility] [address] [place], [address] Prothrombin Time w/INRon INR Coag (PPP) [Relative time] 1.5 {INR} Normal [facility] Comment on above: Order Comment: 411.2 Performed By: #### L 300.3900 ####[facility] [address] [place], [address] PT Coag (PPP) [Time] 18.4 s High 11.7-14.9 [facility] Comment on above: Order Comment: 411.2 Performed By: #### L 300.3900 ####[facility] [address] [place], [address] Prothrombin Time w/INRon INR Coag (PPP) [Relative time] 1.8 {INR} Normal [facility] Comment on above: Order Comment: 411.2 Performed By: #### L 300.3900 ####[facility] [address] [place], [address] PT Coag (PPP) [Time] 21.2 s High 11.7-14.9 [facility] Comment on above: Order Comment: 411.2 Performed By: #### L 300.3900 ####[facility] [address] [place], [place], [phone] International normalized rat io (INR) calculationOrdered By: Carlos Cavazos on 03-02-2025 INR Coag (Bld) [Relative time] 2.2 {INR} [facility] Prothrombin Time w/INRon INR Coag (PPP) [Relative time] 2.2 {INR} Normal [facility] Comment on above: Order Comment: 411-2 Performed By: #### L 300.3900 ####[facility] [address] [place], [place], [phone] Prothrombin timeOrdered By: Carlos Cavazos on 03-02-2025 PT Coag (PPP) [Time] 25.3 s High 11.7-14.9 [facility] Comment on above: Order Comment: 411-2 Performed By: #### L 300.3900 ####[facility] [address] [place], [place], [phone] International normalized rat io (INR) calculationOrdered By: Karon Corrales on 02-26-2025 INR Coag (Bld) [Relative time] 2.2 {INR} [facility] Prothrombin Time w/INRon INR Coag (PPP) [Relative time] 2.2 {INR} Normal [facility] Comment on above: Order Comment: 411.2 Performed By: #### L 300.3900 ####[facility] [address] [place], [address] PT Coag (PPP) [Time] 24.5 s High 11.7-14.9 [facility] Comment on above: Order Comment: 411.2 Performed By: #### L 300.3900 ####[facility] [address] [place], [place], [phone] Prothrombin timeOrdered By: Karon Corrales on 02-26-2025 PT Coag (PPP) [Time] 24.5 s High 11.7-14.9 [facility] International normalized rat io (INR) calculationOrdered By: Karon Corrales on 02-23-2025 INR Coag (Bld) [Relative time] 2.0 {INR} [facility] Prothrombin Time w/INRon INR Coag (PPP) [Relative time] 2.0 {INR} Normal [facility] Comment on above: Order Comment: 411.2 Performed By: #### L 300.3900 ####[facility] [address] [place], [place], [phone] PT Coag (PPP) [Time] 23.5 s High 11.7-14.9 [facility] Comment on above: Order Comment: 411.2 Performed By: #### L 300.3900 ####[facility] [address] [place], [place], [address] Prothrombin timeOrdered By: Karon Corrales on 02-23-2025 PT Coag (PPP) [Time] 23.5 s High 11.7-14.9 [facility] International normalized rat io (INR) calculationOrdered By: Karon Corrales on 02-19-2025 INR Coag (Bld) [Relative time] 1.9 {INR} [facility] Prothrombin Time w/INRon INR Coag (PPP) [Relative time] 1.9 {INR} Normal [facility] Comment on above: Order Comment: 411.2 Performed By: #### L 300.3900 ####[facility] [address] [place], [address](470) PT Coag (PPP) [Time] 21.8 s High 11.7-14.9 [facility] Comment on above: Order Comment: 411.2 Performed By: #### L 300.3900 ####[facility] [address] [place], [place], [address] Prothrombin timeOrdered By: Karon Corrales on 02-19-2025 PT Coag (PPP) [Time] 21.8 s High 11.7-14.9 [facility] International normalized rat io (INR) calculationOrdered By: Karon Corrales on 02-16-2025 INR Coag (Bld) [Relative time] 1.5 {INR} [facility] Prothrombin Time w/INRon INR Coag (PPP) [Relative time] 1.5 {INR} Normal [facility] Comment on above: Order Comment: 411.2 Performed By: #### L 300.3900 ####[facility] [address] [place], [place], [address] PT Coag (PPP) [Time] 18.6 s High 11.7-14.9 [facility] Comment on above: Order Comment: 411.2 Performed By: #### L 300.3900 ####[facility] [address] [place], [place], [address] Prothrombin timeOrdered By: Karon Corrales on 02-16-2025 PT Coag (PPP) [Time] 18.6 s High 11.7-14.9 [facility] International normalized rat io (INR) calculationOrdered By: Karon Corrales on 02-12-2025 INR Coag (Bld) [Relative time] 2.5 {INR} [facility] Prothrombin Time w/INRon INR Coag (PPP) [Relative time] 2.5 {INR} Normal [facility] Comment on above: Order Comment: 411.2 Performed By: #### L 300.3900 ####[facility] [address] [place], [address] PT Coag (PPP) [Time] 27.5 s High 11.7-14.9 [facility] Comment on above: Order Comment: 411.2 Performed By: #### L 300.3900 ####[facility] [address] [place], [address] Prothrombin timeOrdered By: Karon Corrales on 02-12-2025 PT Coag (PPP) [Time] 27.5 s High 11.7-14.9 [facility] International normalized rat io (INR) calculationOrdered By: Carlos Cavazos on 02-09-2025 INR Coag (Bld) [Relative time] 2.5 {INR} [facility] Prothrombin Time w/INRon INR Coag (PPP) [Relative time] 2.5 {INR} Normal [facility] Comment on above: Order Comment: 411-2 Performed By: #### L 300.3900 ####[facility] [address] [place], [address] INR Normal [facility] Comment on above: Order Comment: 411.2 Result Comment: MISS ING TUBE Performed By: #### L 300.3900 ####[facility] [address] [place], [address] PROTIME Normal 11.7-14.9 [facility] Comment on above: Order Comment: 411.2 Result Comment: MISS ING TUBE Performed By: #### L 300.3900 ####[facility] [address] [place], [address] Prothrombin timeOrdered By: Carlos Cavazos on 02-09-2025 PT Coag (PPP) [Time] 27.2 s High 11.7-14.9 [facility] Comment on above: Order Comment: 411-2 Performed By: #### L 300.3900 ####[facility] [address] [place], [address] International normalized rat io (INR) calculationOrdered By: Karon Corrales on 02-05-2025 INR Coag (Bld) [Relative time] 2.5 {INR} [facility] Prothrombin Time w/INRon INR Coag (PPP) [Relative time] 2.5 {INR} Normal [facility] Comment on above: Order Comment: 411.2 Performed By: #### L 300.3900 ####[facility] [address] [place], [address] PT Coag (PPP) [Time] 27.6 s High 11.7-14.9 [facility] Comment on above: Order Comment: 411.2 Performed By: #### L 300.3900 ####[facility] [address] [place], [place], [phone] Prothrombin timeOrdered By: Karon Corrales on 02-05-2025 PT Coag (PPP) [Time] 27.6 s High 11.7-14.9 [facility] International normalized rat io (INR) calculationOrdered By: Karon Corrales on 02-02-2025 INR Coag (Bld) [Relative time] 2.4 {INR} [facility] Prothrombin Time w/INRon INR Coag (PPP) [Relative time] 2.4 {INR} Normal [facility] Comment on above: Order Comment: 411.2 Performed By: #### L 300.3900 ####[facility] [address] [place], [address] PT Coag (PPP) [Time] 26.8 s High 11.7-14.9 [facility] Comment on above: Order Comment: 411.2 Performed By: #### L 300.3900 ####[facility] [address] [place], [place], [phone] Prothrombin timeOrdered By: Karon Corrales on 02-02-2025 PT Coag (PPP) [Time] 26.8 s High 11.7-14.9 [facility] International normalized rat io (INR) calculationOrdered By: Karon Corrales on 01-29-2025 INR Coag (Bld) [Relative time] 2.7 {INR} [facility] Prothrombin Time w/INRon INR Coag (PPP) [Relative time] 2.7 {INR} Normal [facility] Comment on above: Performed By: #### L 300.3900 ####[facility] [address] [place], [place], [phone] PT Coag (PPP) [Time] 29.1 s High 11.7-14.9 [facility] Comment on above: Performed By: #### L 300.3900 ####[facility] [address] [place], [place], [phone]) Prothrombin timeOrdered By: Karon Corrales on 01-29-2025 PT Coag (PPP) [Time] 29.1 s High 11.7-14.9 [facility] International normalized rat io (INR) calculationOrdered By: Karon Corrales on 01-26-2025 INR Coag (Bld) [Relative time] 2.0 {INR} [facility] Prothrombin Time w/INRon INR Coag (PPP) [Relative time] 2.0 {INR} Normal [facility] Comment on above: Order Comment: 411.2 Performed By: #### L 300.3900 ####[facility] [address] [place], [place], [phone]) PT Coag (PPP) [Time] 23.1 s High 11.7-14.9 [facility] Comment on above: Order Comment: 411.2 Performed By: #### L 300.3900 ####[facility] [address] [place], [place], [phone]) Prothrombin timeOrdered By: Karon Corrales on 01-26-2025 PT Coag (PPP) [Time] 23.1 s High 11.7-14.9 [facility] International normalized rat io (INR) calculationOrdered By: Kaorn Corrales on 01-22-2025 INR Coag (Bld) [Relative time] 2.4 {INR} [facility] Prothrombin Time w/INRon INR Coag (PPP) [Relative time] 2.4 {INR} Normal [facility] Comment on above: Order Comment: 411.2 Performed By: #### L 300.3900 ####[facility] [address] [place], [address] PT Coag (PPP) [Time] 26.6 s High 11.7-14.9 [facility] Comment on above: Order Comment: 411.2 Performed By: #### L 300.3900 ####[facility] [address] [place], [address] Prothrombin timeOrdered By: Karon Corrales on 01-22-2025 PT Coag (PPP) [Time] 26.6 s High 11.7-14.9 [facility] International normalized rat io (INR) calculationOrdered By: Carlos Cavazos on 01-19-2025 INR Coag (Bld) [Relative time] 2.7 {INR} [facility] Prothrombin Time w/INRon INR Coag (PPP) [Relative time] 2.7 {INR} Normal [facility] Comment on above: Order Comment: 411-2 Performed By: #### L 300.3900 ####[facility] [address] [place], [address] PT Coag (PPP) [Time] 29.7 s High 11.7-14.9 [facility] Comment on above: Order Comment: 411-2 Performed By: #### L 300.3900 ####[facility] [address] [place], [address] Prothrombin timeOrdered By: Carlos Cavazos on 01-19-2025 PT Coag (PPP) [Time] 29.7 s High 11.7-14.9 [facility] International normalized rat io (INR) calculationOrdered By: Karon Corrales on 01-15-2025 INR Coag (Bld) [Relative time] 2.4 {INR} [facility] Prothrombin Time w/INRon INR Coag (PPP) [Relative time] 2.4 {INR} Normal [facility] Comment on above: Order Comment: 411.1 Performed By: #### L 300.3900 ####[facility] [address] [place], [place], [phone] PT Coag (PPP) [Time] 26.6 s High 11.7-14.9 [facility] Comment on above: Order Comment: 411.1 Performed By: #### L 300.3900 ####[facility] [address] [place], [place], [address] Prothrombin timeOrdered By: Karon Corrales on 01-15-2025 PT Coag (PPP) [Time] 26.6 s High 11.7-14.9 [facility] KEPPRA (LEVETIRACETAM)on KEPPRA 30.1 ug/mL Normal 10.0-40.0 [facility] Comment on above: Order Comment: 411.1 Result Comment: Perf ormed at: [facility] [address] [id number] Director: Alpesh Vázquez MD, Phone: [phone] Performed By: #### L 1200.0000, B054.1959 ####[facility] [address] [place], [place], [address] International normalized rat io (INR) calculationOrdered By: Karon Corrales on 01-12-2025 INR Coag (Bld) [Relative time] 2.3 {INR} [facility] LevetiracetamOrdered By: Carla Corrales on 01-12-2025 levETIRAcetam [Mass/Vol] 30.1 ug/mL 10.0-40.0 [facility] Comment on above: Performed at: - [facility] [address] [id number] Director: Alpesh Vázquez MD, Phone: [phone] Prothrombin Time w/INRon INR Coag (PPP) [Relative time] 2.3 {INR} Normal [facility] Comment on above: Order Comment: 411.1 Performed By: #### L 3310.0000, L300.3900 ####[facility] [address] [place], [address] PT Coag (PPP) [Time] 26.1 s High 11.7-14.9 [facility] Comment on above: Order Comment: 411.1 Performed By: #### L 3310.0000, L300.3900 ####[facility] [address] [place], [address] Prothrombin timeOrdered By: Karon Corrales on 01-12-2025 PT Coag (PPP) [Time] 26.1 s High 11.7-14.9 [facility] KEPPRA (LEVETIRACETAM)on KEPPRA 27.6 ug/mL Normal 10.0-40.0 [facility] Comment on above: Order Comment: 411.1 Result Comment: Perf ormed at: - [facility] [address] [id number] Director: Alpesh Vázquez MD, Phone: [phone] Performed By: #### L 3310.0000, L300.3900 ####[facility] [address] [place], [address] International normalized rat io (INR) calculationOrdered By: Karon Corrales on 01-08-2025 INR Coag (Bld) [Relative time] 2.2 {INR} [facility] Prothrombin Time w/INRon INR Coag (PPP) [Relative time] 2.2 {INR} Normal [facility] Comment on above: Order Comment: 411.1 Performed By: #### L 300.3900 ####[facility] [address] [place], [address] PT Coag (PPP) [Time] 24.5 s High 11.7-14.9 [facility] Comment on above: Order Comment: 411.1 Performed By: #### L 300.3900 ####[facility] [address] [place], [address] Prothrombin timeOrdered By: Karon Corrales on 01-08-2025 PT Coag (PPP) [Time] 24.5 s High 11.7-14.9 [facility] International normalized rat io (INR) calculationOrdered By: Karon Corrales on 01-06-2025 INR Coag (Bld) [Relative time] 3.2 {INR} [facility] LevetiracetamOrdered By: Carla Corrales on 01-06-2025 levETIRAcetam [Mass/Vol] 27.6 ug/mL 10.0-40.0 [facility] Comment on above: Performed at: [address] [id number] Director: Alpesh Vázquez MD, Phone: [phone] Prothrombin Time w/INRon INR Coag (PPP) [Relative time] 3.2 {INR} Normal [facility] Comment on above: Order Comment: 411.1 Performed By: #### L 3310.0000, L300.3900 ####[facility] [address] [place], [address] PT Coag (PPP) [Time] 33.1 s High 11.7-14.9 [facility] Comment on above: Order Comment: 411.1 Performed By: #### L 3310.0000, L300.3900 ####[facility] [address] [place], [place], [address] Prothrombin timeOrdered By: Karon Corrales on 01-06-2025 PT Coag (PPP) [Time] 33.1 s High 11.7-14.9 [facility] International normalized rat io (INR) calculationOrdered By: Karon Corrales on 01-01-2025 INR Coag (Bld) [Relative time] 2.7 {INR} [facility] Prothrombin Time w/INRon INR Coag (PPP) [Relative time] 2.7 {INR} Normal [facility] Comment on above: Order Comment: 411.1 Performed By: #### L 3003900 ####[facility] [address] [place], [place], [id number] Prothrombin timeOrdered By: Karon Corrales on 01-01-2025 PT Coag (PPP) [Time] 29.1 s High 11.7-14.9 [facility] Comment on above: Order Comment: 411.1 Performed By: #### L 3003900 ####[facility] [address] [place], [place], [id number] KEPPRA (LEVETIRACETAM)on KEPPRA 31.8 ug/mL Normal 10.0-40.0 [facility] Comment on above: Order Comment: 411-1 Result Comment: [facility]f ormed at: - [facility] [place], [place] [id number] Director: Alpesh Vázquez MD, Phone: [phone] Performed By: #### L 3310.0000, L351.3581 ####[facility] [address] [place], [place], [address] International normalized rat io (INR) calculationOrdered By: Carlos Cavazos on 12-29-2024 INR Coag (Bld) [Relative time] 3.3 {INR} [facility] KEPPRA (LEVETIRACETAM)on KEPPRA 33.3 ug/mL Normal 10.0-40.0 [facility] Comment on above: Order Comment: 411.1 Result Comment: Perf ormed at: [facility] [address] [id number] Director: Alpesh Vázquez MD, Phone: [phone] Performed By: #### L 3310.0000 ####[facility] [address] [facility] [address] LevetiracetamOrdered By: Ted Cavazos on 12-29-2024 levETIRAcetam [Mass/Vol] 31.8 ug/mL 10.0-40.0 [facility] Comment on above: Performed at: [facility] [address] [id number] Director: Alpesh Vázquez MD, Phone: [phone] Prothrombin Time w/INRon INR Coag (PPP) [Relative time] 3.3 {INR} Normal [facility] Comment on above: Order Comment: 411-1 Performed By: #### L 3310.0000, L300.3900 ####[facility] [address] [place], [address] Prothrombin timeOrdered By: Carlos Cavazos on 12-29-2024 PT Coag (PPP) [Time] 34.0 s High 11.7-14.9 [facility] Comment on above: Order Comment: 411-1 Performed By: #### L 3310.0000, L300.3900 ####[facility] [address] [place], [place], [address] LevetiracetamOrdered By: Carla Corrales on 12-26-2024 levETIRAcetam [Mass/Vol] 33.3 ug/mL 10.0-40.0 [facility] Comment on above: Performed at: [facility] [address], [place] [id number] Director: Alpesh Vázquez MD, Phone: [phone] International normalized rat io (INR) calculationOrdered By: Karon Corrales on 12-25-2024 INR Coag (Bld) [Relative time] 2.8 {INR} [facility] Prothrombin Time w/INRon INR Coag (PPP) [Relative time] 2.8 {INR} Normal [facility] Comment on above: Order Comment: 411.1 Performed By: #### L 300.3900 ####[facility] [address] [place], [address] Prothrombin timeOrdered By: Karon Corrales on 12-25-2024 PT Coag (PPP) [Time] 30.0 s High 11.7-14.9 [facility] Comment on above: Order Comment: 411.1 Performed By: #### L 300.3900 ####[facility] [address] [place], [address] Anion gap in Serum or Plasma Ordered By: Carlos Cavazos on 12-24-2024 Anion gap [Moles/Vol] 13 mmol/L 09-18 [facility] BUN/creatinine ratioOrdered By: Carlos Cavazos on 12-24-2024 Urea nitrogen/Creatinine [Mass ratio] 19.2 mg/mg 02-23 [facility] Basic Metabolic Profile (BMP )on 12-24-2024 BUN/CRE 19.2 RATIO Normal 02-23 [facility] Comment on above: Order Comment: 411-1 Performed By: #### L 500.2500, L100.0500 ####[facility] [address] [place], [address] Calcium [Mass/Vol] 8.8 mg/dL Normal 7.6-11.0 [facility] Comment on above: Order Comment: 411-1 Performed By: #### L 500.2500, L100.0500 ####[facility] [address] [place], [address] Chloride [Moles/Vol] 103 mmol/L Normal 98-108 [facility] [facility] Comment on above: Order Comment: 411-1 Performed By: #### L 500.2500, L100.0500 ####[facility] [address] [place], [address] CO2 [Moles/Vol] 23.7 mmol/L Normal 21.0-32.0 [facility] Comment on above: Order Comment: 411-1 Performed By: #### L 500.2500, L100.0500 ####[facility] [address] [place], [address] Creatinine [Mass/Vol] 0.82 mg/dL Normal 0.70-1.20 [facility] Comment on above: Order Comment: 411-1 Performed By: #### L 500.2500, L100.0500 ####[facility] [address] [place], [address] GAP 13 Normal 5-15 [facility] Comment on above: Order Comment: 411-1 Performed By: #### L 500.2500, L100.0500 ####[facility] [address] [place], [address] GFR/1.73 sq M.predicted among non-blacks MDRD (S/P/Bld) [Vol rate/Area] 93 mL/min/{1.73_m2} Normal >60 [facility] Comment on above: Order Comment: 411-1 Result Comment: mL/m in/1.73m2 CKD-EPI Creatinine Equation (2020) Performed By: #### L 500.2500, L100.0500 ####[facility] [address] [place], [address] Glucose [Mass/Vol] 88 mg/dL Normal 70-99 [facility] Comment on above: Order Comment: 411-1 Performed By: #### L 500.2500, L100.0500 ####[facility] [address] [place], [address] Potassium [Moles/Vol] 4.2 mmol/L Normal 3.3-5.1 [facility] Comment on above: Order Comment: 411-1 Performed By: #### L 500.2500, L100.0500 ####[facility] [address] [place], [address] Sodium [Moles/Vol] 139 mmol/L Normal 133-145 [facility] Comment on above: Order Comment: 411-1 Performed By: #### L 500.2500, L100.0500 ####[facility] [address] [place], [address] Urea nitrogen [Mass/Vol] 16 mg/dL Normal 4-19 [facility] Comment on above: Order Comment: 411-1 Performed By: #### L 500.2500, L100.0500 ####[facility] [address] [place], [address] CBC-Complete Blood Cnt No Di ffon 12-24-2024 Erythrocyte distribution width (RBC) [Ratio] 15.4 % High 11.6-14.6 [facility] Comment on above: Order Comment: 411-1 Performed By: #### L 500.2500, L100.0500 ####[facility] [address] [place], [address] Hematocrit (Bld) [Volume fraction] 39.8 % Low 40-54 [facility] Comment on above: Order Comment: 411-1 Performed By: #### L 500.2500, L100.0500 ####[facility] [address] [place], [address] Hemoglobin (Bld) [Mass/Vol] 12.4 g/dL Low 13.0-16.5 [facility] Comment on above: Order Comment: 411-1 Performed By: #### L 500.2500, L100.0500 ####[facility] [address] [place], [address] MCH (RBC) [Entitic mass] 26.6 pg Low 27.0-32.0 [facility] Comment on above: Order Comment: 411-1 Performed By: #### L 500.2500, L100.0500 ####[facility] [address] [place], [address] MCHC (RBC) [Mass/Vol] 31.2 g/dL Low 32-36 [facility] Comment on above: Order Comment: 411-1 Performed By: #### L 500.2500, L100.0500 ####[facility] [address] [place], [address] MCV (RBC) [Entitic vol] 85.4 fL Normal 80-94 [facility] Comment on above: Order Comment: 411-1 Performed By: #### L 500.2500, L100.0500 ####[facility] [address] [place], [address] Platelet mean volume (Bld) [Entitic vol] 10.4 fL Normal 6.2-12.0 [facility] Comment on above: Order Comment: 411-1 Performed By: #### L 500.2500, L100.0500 ####[facility] [address] [place], [address] Platelets (Bld) [#/Vol] 290 10*3/uL Normal 150-450 [facility] Comment on above: Order Comment: 411-1 Performed By: #### L 500.2500, L100.0500 ####[facility] [address] [place], [address] RBC (Bld) [#/Vol] 4.66 10*6/uL Normal 4.6-6.2 [facility] Comment on above: Order Comment: 411-1 Performed By: #### L 500.2500, L100.0500 ####[place] [facility] [address] [place], [address] RDW SD 48.1 fl High 35.1-43.9 [facility] Comment on above: Order Comment: 411-1 Performed By: #### L 500.2500, L100.0500 ####[facility] [address] [place], [address] WBC (Bld) [#/Vol] 16.6 10*3/uL High 4.4-11.0 [facility] Comment on above: Order Comment: 411-1 Performed By: #### L 500.2500, L100.0500 ####[facility] [address] [place], [address] Carbon dioxide, total [Moles /volume] in Central venous bloodOrdered By: Carlos Cavazos on 12-24-2024 CO2 [Moles/Vol] 23.7 mmol/L 21.0-32.0 [facility] Chloride assayOrdered By: Sharif Crouch on 12-24-2024 Chloride [Moles/Vol] 103 mmol/L 98-108 [facility] Erythrocyte distribution wid th ratioOrdered By: Carlos Cavazos on 12-24-2024 Erythrocyte distribution width (RBC) [Ratio] 15.4 % High 11.6-14.6 [facility] Erythrocyte distribution wid th standard deviationOrdered By: Carlos Cavazos on 12-24-2024 Erythrocyte distribution width (RBC) [Ratio] 48.1 fl High 35.1-43.9 [facility] Glomerular filtration rate ( GFR) estimation/1.73 sq m using serum, plasma, or whole bOrdered By: Carlos Cavazos on 12-24-2024 GFR/1.73 sq M.predicted among non-blacks MDRD (S/P/Bld) [Vol rate/Area] 93 mL/min/{1.73_m2} >60 [facility] Comment on above: mL/min/1.73m2 CKD-EP I Creatinine Equation (2020) Hematocrit Auto (Bld) [Volum e fraction]Ordered By: Carlos Cavazos on 12-24-2024 Hematocrit (Bld) [Volume fraction] 39.8 % Low 40-54 [facility] Hemoglobin measurementOrdere d By: Carlos Cavazos on 12-24-2024 Hemoglobin (Bld) [Mass/Vol] 12.4 g/dL Low 13.0-16.5 [facility] MCV (mean corpuscular volume ) determinationOrdered By: Carlos Cavazos on 12-24-2024 MCV (RBC) [Entitic vol] 85.4 fL 80-94 [facility] Mean corpuscular hemoglobin (MCH) determinationOrdered By: Carlos Cavazos on 12-24-2024 MCH (RBC) [Entitic mass] 26.6 pg Low 27.0-32.0 [facility] Mean corpuscular hemoglobin concentration (MCHC) determinationOrdered By: Carlos Cavazos on 12-24-2024 MCHC (RBC) [Mass/Vol] 31.2 g/dL Low 32-36 [facility] Mean platelet volume determi nationOrdered By: Carlos Cavazos on 12-24-2024 Platelet mean volume (Bld) [Entitic vol] 10.4 fL 6.2-12.0 [facility] Platelet countOrdered By: Sharif Crouch on 12-24-2024 Platelets (Bld) [#/Vol] 290 10*3/uL 150-450 [facility] Potassium measurement (mass/ volume)Ordered By: Carlos Cavazos on 12-24-2024 Potassium (Unsp spec) [Mass/Vol] 4.2 mmol/L 3.3-5.1 [facility] RBC Auto (Bld) [#/Vol]Ordere d By: Carlos Cavazos on 12-24-2024 RBC (Bld) [#/Vol] 4.66 10*6/uL 4.6-6.2 [facility] Serum creatinine measurement (mass/volume)Ordered By: Carlos Cavazos on 12-24-2024 Creatinine [Mass/Vol] 0.82 mg/dL 0.70-1.20 [facility] Serum glucose measurement (m ass/volume)Ordered By: Carlos Cavazos on 12-24-2024 Glucose [Mass/Vol] 88 mg/dL 70-99 [facility] Serum or plasma calcium oral urement (mass/volume)Ordered By: Carlos Cavazos on 12-24-2024 Calcium [Mass/Vol] 8.8 mg/dL 7.6-11.0 [facility] Serum or plasma urea nitroge n measurement (mass/volume)Ordered By: Carlos Cavazos on 12-24-2024 Urea nitrogen [Mass/Vol] 16 mg/dL 4-19 [facility] Sodium levelOrdered By: Moe Cavazos on 12-24-2024 Sodium [Moles/Vol] 139 mmol/L 133-145 [facility] White blood cell (WBC) count Ordered By: Carlos Cavazos on 12-24-2024 WBC (Bld) [#/Vol] 16.6 10*3/uL High 4.4-11.0 [facility] International normalized rat io (INR) calculationOrdered By: Karon Corrales on 12-22-2024 INR Coag (Bld) [Relative time] 2.6 {INR} [facility] Prothrombin Time w/INRon INR Coag (PPP) [Relative time] 2.6 {INR} Normal [facility] Comment on above: Order Comment: 411.1 Performed By: #### L 300.5537 ####[facility] [address] [facility] [place], [place], [phone] PT Coag (PPP) [Time] 28.8 s High 11.7-14.9 [facility] Comment on above: Order Comment: 411.1 Performed By: #### L 300.3900 ####[facility] [address] [facility] [place], [place], [phone] Prothrombin timeOrdered By: Karon Corrales on 12-22-2024 PT Coag (PPP) [Time] 28.8 s High 11.7-14.9 [facility] International normalized rat io (INR) calculationOrdered By: Karon Corrales on 12-18-2024 INR Coag (Bld) [Relative time] 2.4 {INR} [facility] Prothrombin Time w/INRon INR Coag (PPP) [Relative time] 2.4 {INR} Normal [facility] Comment on above: Order Comment: 411.1 Performed By: #### L 300.3900 ####[facility] [address] [place], [place], [phone] PT Coag (PPP) [Time] 26.7 s High 11.7-14.9 [facility] Comment on above: Order Comment: 411.1 Performed By: #### L 300.3900 ####[facility] [address] [place], [place], [phone] Prothrombin timeOrdered By: Karon Corrales on 12-18-2024 PT Coag (PPP) [Time] 26.7 s High 11.7-14.9 [facility] International normalized rat io (INR) calculationOrdered By: Karon Corrales on 12-15-2024 INR Coag (Bld) [Relative time] 2.3 {INR} [facility] Prothrombin Time w/INRon INR Coag (PPP) [Relative time] 2.3 {INR} Normal [facility] Comment on above: Order Comment: 411.1 Performed By: #### L 300.3900 ####[facility] [address] [place], [place], [phone] Prothrombin timeOrdered By: Karon Corrales on 12-15-2024 PT Coag (PPP) [Time] 25.7 s High 11.7-14.9 [facility] Comment on above: Order Comment: 411.1 Performed By: #### L 300.3900 ####[facility] [address] [place], [place], [phone] International normalized rat io (INR) calculationOrdered By: Carlos Cavazos on 12-11-2024 INR Coag (Bld) [Relative time] 2.2 {INR} [facility] Prothrombin Time w/INRon INR Coag (PPP) [Relative time] 2.2 {INR} Normal [facility] Comment on above: Order Comment: 411-1 Performed By: #### L 300.3900 ####[facility] [address] [place], [address] Prothrombin timeOrdered By: Carlos Cavazos on 12-11-2024 PT Coag (PPP) [Time] 24.7 s High 11.7-14.9 [facility] Comment on above: Order Comment: 411-1 Performed By: #### L 300.3900 ####[facility] [address] [place], [place], [phone] International normalized rat io (INR) calculationOrdered By: Karon Corrales on 12-08-2024 INR Coag (Bld) [Relative time] 2.2 {INR} [facility] Prothrombin Time w/INRon INR Coag (PPP) [Relative time] 2.2 {INR} Normal [facility] Comment on above: Order Comment: 411.1 Performed By: #### L 300.3900 ####[facility] [address] [place], [address] PT Coag (PPP) [Time] 25.0 s High 11.7-14.9 [facility] Comment on above: Order Comment: 411.1 Performed By: #### L 300.3900 ####[facility] [address] [place], [place], [phone] Prothrombin timeOrdered By: Karon Corrales on 12-08-2024 PT Coag (PPP) [Time] 25.0 s High 11.7-14.9 [facility] International normalized rat io (INR) calculationOrdered By: Karon Corrales on 12-04-2024 INR Coag (Bld) [Relative time] 2.3 {INR} [facility] Prothrombin Time w/INRon INR Coag (PPP) [Relative time] 2.3 {INR} Normal [facility] Comment on above: Order Comment: 411.1 Performed By: #### L 300.3900 ####[facility] [address] [place], [address] PT Coag (PPP) [Time] 25.9 s High 11.7-14.9 [facility] Comment on above: Order Comment: 411.1 Performed By: #### L 300.3900 ####[facility] [address] [place], [address] Prothrombin timeOrdered By: Karon Corrales on 12-04-2024 PT Coag (PPP) [Time] 25.9 s High 11.7-14.9 [facility] International normalized rat io (INR) calculationOrdered By: Karon Corrales on 12-02-2024 INR Coag (Bld) [Relative time] 2.5 {INR} [facility] Prothrombin Time w/INRon INR Coag (PPP) [Relative time] 2.5 {INR} Normal [facility] Comment on above: Order Comment: 411.1 Performed By: #### L 300.3900 ####[facility] [address] [place], [address] PT Coag (PPP) [Time] 27.3 s High 11.7-14.9 [facility] Comment on above: Order Comment: 411.1 Performed By: #### L 300.3900 ####[facility] [address] [place], [address] Prothrombin timeOrdered By: Karon Corrales on 12-02-2024 PT Coag (PPP) [Time] 27.3 s High 11.7-14.9 [facility] International normalized rat io (INR) calculationOrdered By: Carlos Cavazos on 12-01-2024 INR Coag (Bld) [Relative time] 2.3 {INR} [facility] Prothrombin Time w/INRon INR Coag (PPP) [Relative time] 2.3 {INR} Normal [facility] Comment on above: Order Comment: 411-1 Performed By: #### L 300.3900 ####[facility] [address] [place], [address] PT Coag (PPP) [Time] 26.0 s High 11.7-14.9 [facility] Comment on above: Order Comment: 411-1 Performed By: #### L 300.3900 ####[facility] [address] [place], [address] Prothrombin timeOrdered By: Carlos Cavazos on 12-01-2024 PT Coag (PPP) [Time] 26.0 s High 11.7-14.9 [facility] International normalized rat io (INR) calculationOrdered By: Carlos Cavazos on 11-28-2024 INR Coag (Bld) [Relative time] 3.1 {INR} [facility] Prothrombin Time w/INRon INR Coag (PPP) [Relative time] 3.1 {INR} Normal [facility] Comment on above: Order Comment: 411-1 Performed By: #### L 300.3900 ####[facility] [address] [place], [address] PT Coag (PPP) [Time] 32.8 s High 11.7-14.9 [facility] Comment on above: Order Comment: 411-1 Performed By: #### L 300.3900 ####[facility] [address] [place], [address] Prothrombin timeOrdered By: Carlos Cavazos on 11-28-2024 PT Coag (PPP) [Time] 32.8 s High 11.7-14.9 [facility] International normalized rat io (INR) calculationOrdered By: Karon Corrales on 11-27-2024 INR Coag (Bld) [Relative time] 3.3 {INR} [facility] Prothrombin Time w/INRon INR Coag (PPP) [Relative time] 3.3 {INR} Normal [facility] Comment on above: Order Comment: 411.1 Performed By: #### L 300.3900 ####[facility] [address] [place], [place], [phone] PT Coag (PPP) [Time] 34.3 s High 11.7-14.9 [facility] Comment on above: Order Comment: 411.1 Performed By: #### L 300.3900 ####[facility] [address] [place], [place], [phone]) Prothrombin timeOrdered By: Karon Corrales on 11-27-2024 PT Coag (PPP) [Time] 34.3 s High 11.7-14.9 [facility] International normalized rat io (INR) calculationOrdered By: Karon Corrales on 11-24-2024 INR Coag (Bld) [Relative time] 2.8 {INR} [facility] Prothrombin Time w/INRon INR Coag (PPP) [Relative time] 2.8 {INR} Normal [facility] Comment on above: Order Comment: 411.2 Performed By: #### L 300.3900 ####[facility] [address] [place], [place], [phone] PT Coag (PPP) [Time] 30.0 s High 11.7-14.9 [facility] Comment on above: Order Comment: 411.2 Performed By: #### L 300.3900 ####[facility] [address] [place], [place], [phone]) Prothrombin timeOrdered By: Karon Corrales on 11-24-2024 PT Coag (PPP) [Time] 30.0 s High 11.7-14.9 [facility] International normalized rat io (INR) calculationOrdered By: Karon Corrales on 11-20-2024 INR Coag (Bld) [Relative time] 3.0 {INR} [facility] Prothrombin Time w/INRon INR Coag (PPP) [Relative time] 3.0 {INR} Normal [facility] Comment on above: Order Comment: 411.2 Performed By: #### L 300.3900 ####[facility] [address] [place], [place], [phone] PT Coag (PPP) [Time] 32.0 s High 11.7-14.9 [facility] Comment on above: Order Comment: 411.2 Performed By: #### L 300.3900 ####[facility] [address] [place], [place], [phone] Prothrombin timeOrdered By: Karon Corrales on 11-20-2024 PT Coag (PPP) [Time] 32.0 s High 11.7-14.9 [facility] International normalized rat io (INR) calculationOrdered By: Karon Corrales on 11-17-2024 INR Coag (Bld) [Relative time] 2.9 {INR} [facility] Prothrombin Time w/INRon INR Coag (PPP) [Relative time] 2.9 {INR} Normal [facility] Comment on above: Order Comment: 411.2 Performed By: #### L 300.3900 ####[facility] [address] [place], [place], [phone] PT Coag (PPP) [Time] 30.7 s High 11.7-14.9 [facility] Comment on above: Order Comment: 411.2 Performed By: #### L 300.3900 ####[facility] [address] [place], [place], [phone](914) Prothrombin timeOrdered By: Karon Corrales on 11-17-2024 PT Coag (PPP) [Time] 30.7 s High 11.7-14.9 [facility] International normalized rat io (INR) calculationOrdered By: Karon Corrales on 11-13-2024 INR Coag (Bld) [Relative time] 2.2 {INR} [facility] Prothrombin Time w/INRon INR Coag (PPP) [Relative time] 2.2 {INR} Normal [facility] Comment on above: Order Comment: 411.2 Performed By: #### L 300.3900 ####[facility] [address] [place], [place], [phone] PT Coag (PPP) [Time] 24.7 s High 11.7-14.9 [facility] Comment on above: Order Comment: 411.2 Performed By: #### L 300.3900 ####[facility] [address] [place], [place], [phone](460) Prothrombin timeOrdered By: Karon Corrales on 11-13-2024 PT Coag (PPP) [Time] 24.7 s High 11.7-14.9 [facility] International normalized rat io (INR) calculationOrdered By: Karon Corrales on 11-10-2024 INR Coag (Bld) [Relative time] 2.6 {INR} [facility] Prothrombin Time w/INRon INR Coag (PPP) [Relative time] 2.6 {INR} Normal [facility] Comment on above: Order Comment: 411.2 Performed By: #### L 300.3900 ####[facility] [address] [place], [address] PT Coag (PPP) [Time] 28.7 s High 11.7-14.9 [facility] Comment on above: Order Comment: 411.2 Performed By: #### L 300.3900 ####[facility] [address] [place], [place], [phone] Prothrombin timeOrdered By: Karon Corrales on 11-10-2024 PT Coag (PPP) [Time] 28.7 s High 11.7-14.9 [facility] International normalized rat io (INR) calculationOrdered By: Karon Corrales on 11-06-2024 INR Coag (Bld) [Relative time] 3.1 {INR} [facility] Prothrombin Time w/INRon INR Coag (PPP) [Relative time] 3.1 {INR} Normal [facility] Comment on above: Order Comment: 411.2 Performed By: #### L 300.3900 ####[facility] [address] [place], [address] Prothrombin timeOrdered By: Karon Corrales on 11-06-2024 PT Coag (PPP) [Time] 33.0 s High 11.7-14.9 [facility] Comment on above: Order Comment: 411.2 Performed By: #### L 300.3900 ####[facility] [address] [place], [address] International normalized rat io (INR) calculationOrdered By: Carlos Cavazos on 11-03-2024 INR Coag (Bld) [Relative time] 3.0 {INR} [facility] Prothrombin Time w/INRon INR Coag (PPP) [Relative time] 3.0 {INR} Normal [facility] Comment on above: Order Comment: 411-2 Performed By: #### L 300.3900 ####[facility] [address] [place], [address] PT Coag (PPP) [Time] 31.4 s High 11.7-14.9 [facility] Comment on above: Order Comment: 411-2 Performed By: #### L 300.3900 ####[facility] [address] [place], [address] Prothrombin timeOrdered By: Carlos Cavazos on 11-03-2024 PT Coag (PPP) [Time] 31.4 s High 11.7-14.9 [facility] International normalized rat io (INR) calculationOrdered By: Karon Corrales on 10-30-2024 INR Coag (Bld) [Relative time] 2.4 {INR} [facility] Prothrombin Time w/INRon INR Coag (PPP) [Relative time] 2.4 {INR} Normal [facility] Comment on above: Performed By: #### L 300.3900 ####[facility] [address] [place], [place], [phone] PT Coag (PPP) [Time] 26.3 s High 11.7-14.9 [facility] Comment on above: Performed By: #### L 300.3900 ####[facility] [address] [place], [place], [phone] Prothrombin timeOrdered By: Karon Corrales on 10-30-2024 PT Coag (PPP) [Time] 26.3 s High 11.7-14.9 [facility] International normalized rat io (INR) calculationOrdered By: Karon Corrales on 10-27-2024 INR Coag (Bld) [Relative time] 2.2 {INR} [facility] Prothrombin Time w/INRon INR Coag (PPP) [Relative time] 2.2 {INR} Normal [facility] Comment on above: Order Comment: 411.2 Performed By: #### L 300.3900 ####[facility] [address] [place], [place], [phone] Prothrombin timeOrdered By: Karon Corrales on 10-27-2024 PT Coag (PPP) [Time] 24.5 s High 11.7-14.9 [facility] Comment on above: Order Comment: 411.2 Performed By: #### L 300.3900 ####[facility] [address] [place], [address] International normalized rat io (INR) calculationOrdered By: Karon Corrales on 10-23-2024 INR Coag (Bld) [Relative time] 2.5 {INR} [facility] Prothrombin Time w/INRon INR Coag (PPP) [Relative time] 2.5 {INR} Normal [facility] Comment on above: Order Comment: 411.2 Performed By: #### L 300.3900 ####[facility] [address] [place], [address] PT Coag (PPP) [Time] 27.9 s High 11.7-14.9 [facility] Comment on above: Order Comment: 411.2 Performed By: #### L 300.3900 ####[facility] [address] [place], [address] Prothrombin timeOrdered By: Karon Corrales on 10-23-2024 PT Coag (PPP) [Time] 27.9 s High 11.7-14.9 [facility] International normalized rat io (INR) calculationOrdered By: Karon Corrales on 10-20-2024 INR Coag (Bld) [Relative time] 3.1 {INR} [facility] Prothrombin Time w/INRon INR Coag (PPP) [Relative time] 3.1 {INR} Normal [facility] Comment on above: Order Comment: 411.2 Performed By: #### L 300.3900 ####[facility] [address] [place], [address] PT Coag (PPP) [Time] 32.8 s High 11.7-14.9 [facility] Comment on above: Order Comment: 411.2 Performed By: #### L 300.3900 ####[facility] [address] [place], [address] Prothrombin timeOrdered By: Karon Corrales on 10-20-2024 PT Coag (PPP) [Time] 32.8 s High 11.7-14.9 [facility] International normalized rat io (INR) calculationOrdered By: Karon Corrales on 10-16-2024 INR Coag (Bld) [Relative time] 2.8 {INR} [facility] Prothrombin Time w/INRon INR Coag (PPP) [Relative time] 2.8 {INR} Normal [facility] Comment on above: Order Comment: 411.2 Performed By: #### L 300.3900 ####[facility] [address] [place], [place], [phone] PT Coag (PPP) [Time] 30.4 s High 11.7-14.9 [facility] Comment on above: Order Comment: 411.2 Performed By: #### L 300.3900 ####[facility] [address] [place], [phone] Prothrombin timeOrdered By: Karon Corrales on 10-16-2024 PT Coag (PPP) [Time] 30.4 s High 11.7-14.9 [facility] International normalized rat io (INR) calculationOrdered By: Carlos Cavazos on 10-13-2024 INR Coag (Bld) [Relative time] 1.9 {INR} [facility] Prothrombin Time w/INRon INR Coag (PPP) [Relative time] 1.9 {INR} Normal [facility] Comment on above: Order Comment: 411-2 Performed By: #### L 300.3900 ####[facility] [address] [place], [place], [phone] PT Coag (PPP) [Time] 22.4 s High 11.7-14.9 [facility] Comment on above: Order Comment: 411-2 Performed By: #### L 300.3900 ####[facility] [address] [place], [place], [phone] Prothrombin timeOrdered By: Carlos Cavazos on 10-13-2024 PT Coag (PPP) [Time] 22.4 s High 11.7-14.9 [facility] International normalized rat io (INR) calculationOrdered By: Karon Corrales on 10-09-2024 INR Coag (Bld) [Relative time] 3.0 {INR} [facility] Prothrombin Time w/INRon INR Coag (PPP) [Relative time] 3.0 {INR} Normal [facility] Comment on above: Order Comment: 411.2 Performed By: #### L 300.3900 ####[facility] [address] [place], [address] Prothrombin timeOrdered By: Karon Corrales on 10-09-2024 PT Coag (PPP) [Time] 31.8 s High 11.7-14.9 [facility] Comment on above: Order Comment: 411.2 Performed By: #### L 300.3900 ####[facility] [address] [place], [address] International normalized rat io (INR) calculationOrdered By: Carlos Cavazos on 10-06-2024 INR Coag (Bld) [Relative time] 2.7 {INR} [facility] Prothrombin Time w/INRon INR Coag (PPP) [Relative time] 2.7 {INR} Normal [facility] Comment on above: Order Comment: 411-2 Performed By: #### L 300.3900 ####[facility] [address] [place], [address] PT Coag (PPP) [Time] 29.6 s High 11.7-14.9 [facility] Comment on above: Order Comment: 411-2 Performed By: #### L 300.3900 ####[facility] [address] [place], [address] Prothrombin timeOrdered By: Carlos Cavazos on 10-06-2024 PT Coag (PPP) [Time] 29.6 s High 11.7-14.9 [facility] International normalized rat io (INR) calculationOrdered By: Karon Corrales on 10-02-2024 INR Coag (Bld) [Relative time] 2.3 {INR} [facility] Prothrombin Time w/INRon INR Coag (PPP) [Relative time] 2.3 {INR} Normal [facility] Comment on above: Order Comment: 411.2 Performed By: #### L 300.3900 ####[facility] [address] [place], [address] PT Coag (PPP) [Time] 26.0 s High 11.7-14.9 [facility] Comment on above: Order Comment: 411.2 Performed By: #### L 300.3900 ####[facility] [address] [place], [address] Prothrombin timeOrdered By: Karon Corrales on 10-02-2024 PT Coag (PPP) [Time] 26.0 s High 11.7-14.9 [facility] International normalized rat io (INR) calculationOrdered By: Kaorn Corrales on 09-30-2024 INR Coag (Bld) [Relative time] 3.1 {INR} [facility] Prothrombin Time w/INRon INR Coag (PPP) [Relative time] 3.1 {INR} Normal [facility] Comment on above: Order Comment: 411.2 Performed By: #### L 300.3900 ####[facility] [address] [place], [address] PT Coag (PPP) [Time] 32.6 s High 11.7-14.9 [facility] Comment on above: Order Comment: 411.2 Performed By: #### L 300.3900 ####[facility] [address] [place], [place], [phone] Prothrombin timeOrdered By: Karon Corrales on 09-30-2024 PT Coag (PPP) [Time] 32.6 s High 11.7-14.9 [facility] International normalized rat io (INR) calculationOrdered By: Karon Corrales on 09-25-2024 INR Coag (Bld) [Relative time] 2.4 {INR} [facility] Prothrombin Time w/INRon INR Coag (PPP) [Relative time] 2.4 {INR} Normal [facility] Comment on above: Order Comment: 411.2 Performed By: #### L 300.3900 ####[facility] [address] [place], [address] Prothrombin timeOrdered By: Karon Corrales on 09-25-2024 PT Coag (PPP) [Time] 26.7 s High 11.7-14.9 [facility] Comment on above: Order Comment: 411.2 Performed By: #### L 300.3900 ####[facility] [address] [place], [place], [address] International normalized rat io (INR) calculationOrdered By: Karon Corrales on 09-22-2024 INR Coag (Bld) [Relative time] 2.5 {INR} [facility] Prothrombin Time w/INRon INR Coag (PPP) [Relative time] 2.5 {INR} Normal [facility] Comment on above: Order Comment: 411.2 Performed By: #### L 300.3900 ####[facility] [address] [place], [place], [phone] Prothrombin timeOrdered By: Karon Corrales on 09-22-2024 PT Coag (PPP) [Time] 27.4 s High 11.7-14.9 [facility] Comment on above: Order Comment: 411.2 Performed By: #### L 300.3900 ####[facility] [address] [place], [address] International normalized rat io (INR) calculationOrdered By: Karon Corrales on 09-18-2024 INR Coag (Bld) [Relative time] 2.2 {INR} [facility] Prothrombin Time w/INRon INR Coag (PPP) [Relative time] 2.2 {INR} Normal [facility] Comment on above: Order Comment: 411.2 Performed By: #### L 300.3900 ####[facility] [address] [place], [place], [phone] PT Coag (PPP) [Time] 25.1 s High 11.7-14.9 [facility] Comment on above: Order Comment: 411.2 Performed By: #### L 300.3900 ####[facility] [address] [place], [place], [address] Prothrombin timeOrdered By: Karon Corrales on 09-18-2024 PT Coag (PPP) [Time] 25.1 s High 11.7-14.9 [facility] International normalized rat io (INR) calculationOrdered By: Carlos Cavazos on 09-15-2024 INR Coag (Bld) [Relative time] 2.4 {INR} [facility] Prothrombin Time w/INRon INR Coag (PPP) [Relative time] 2.4 {INR} Normal [facility] Comment on above: Order Comment: 411-2 Performed By: #### L 300.3900 ####[facility] [address] [place], [place], [address] Prothrombin timeOrdered By: Carlos Cavazos on 09-15-2024 PT Coag (PPP) [Time] 26.3 s High 11.7-14.9 [facility] Comment on above: Order Comment: 411-2 Performed By: #### L 300.3900 ####[facility] [address] [place], [place], [address] International normalized rat io (INR) calculationOrdered By: Karon Corrales on 09-11-2024 INR Coag (Bld) [Relative time] 2.0 {INR} [facility] Prothrombin Time w/INRon INR Coag (PPP) [Relative time] 2.0 {INR} Normal [facility] Comment on above: Order Comment: 411.2 Performed By: #### L 300.3900 ####[facility] [address] [place], [place], [phone] PT Coag (PPP) [Time] 22.9 s High 11.7-14.9 [facility] Comment on above: Order Comment: 411.2 Performed By: #### L 300.3900 ####[facility] [address] [place], [place], [phone] Prothrombin timeOrdered By: Karon Corrales on 09-11-2024 PT Coag (PPP) [Time] 22.9 s High 11.7-14.9 [facility] International normalized rat io (INR) calculationOrdered By: Karon Corrales on 09-08-2024 INR Coag (Bld) [Relative time] 2.0 {INR} [facility] Prothrombin Time w/INRon INR Coag (PPP) [Relative time] 2.0 {INR} Normal [facility] Comment on above: Order Comment: 411.2 Performed By: #### L 300.3900 ####[facility] [address] [place], [place], [phone] PT Coag (PPP) [Time] 22.8 s High 11.7-14.9 [facility] Comment on above: Order Comment: 411.2 Performed By: #### L 300.3900 ####[facility] [address] [place], [place], [phone] Prothrombin timeOrdered By: Karon Corrales on 09-08-2024 PT Coag (PPP) [Time] 22.8 s High 11.7-14.9 [facility] International normalized rat io (INR) calculationOrdered By: Carlos Cavazos on 09-04-2024 INR Coag (Bld) [Relative time] 1.7 {INR} [facility] Prothrombin Time w/INRon INR Coag (PPP) [Relative time] 1.7 {INR} Normal [facility] Comment on above: Order Comment: 411-2 Performed By: #### L 300.3900 ####[facility] [address] [place], [phone] PT Coag (PPP) [Time] 20.8 s High 11.7-14.9 [facility] Comment on above: Order Comment: 411-2 Performed By: #### L 300.3900 ####[facility] [address] [place], [phone] Prothrombin timeOrdered By: Carlos Cavazos on 09-04-2024 PT Coag (PPP) [Time] 20.8 s High 11.7-14.9 [facility] International normalized rat io (INR) calculationOrdered By: Carlos Cavazos on 09-01-2024 INR Coag (Bld) [Relative time] 2.9 {INR} [facility] Prothrombin Time w/INRon INR Coag (PPP) [Relative time] 2.9 {INR} Normal [facility] Comment on above: Order Comment: 411-2 Performed By: #### L 300.3900 ####[facility] [address] [place], [address] PT Coag (PPP) [Time] 30.7 s High 11.7-14.9 [facility] Comment on above: Order Comment: 411-2 Performed By: #### L 300.3900 ####[facility] [address] [place], [phone] Prothrombin timeOrdered By: Carlos Cavazos on 09-01-2024 PT Coag (PPP) [Time] 30.7 s High 11.7-14.[address] [facility] International normalized rat io (INR) calculationOrdered By: Carlos Cavazos on 08-28-2024 INR Coag (Bld) [Relative time] 2.4 {INR} [facility] Prothrombin Time w/INRon INR Coag (PPP) [Relative time] 2.4 {INR} Normal [facility] Comment on above: Order Comment: 411-2 Performed By: #### L 300.3900 ####[facility] [address] [place], [address] Prothrombin timeOrdered By: Carlos Cavazos on 08-28-2024 PT Coag (PPP) [Time] 26.7 s High 11.7-14.9 [facility] Comment on above: Order Comment: 411-2 Performed By: #### L 300.3900 ####[facility] [address] [place], [address] International normalized rat io (INR) calculationOrdered By: Karon Corrales on 08-25-2024 INR Coag (Bld) [Relative time] 1.8 {INR} [facility] Prothrombin Time w/INRon INR Coag (PPP) [Relative time] 1.8 {INR} Normal [facility] Comment on above: Order Comment: 411.2 Performed By: #### L 300.3900 ####[facility] [address] [place], [place], [phone] PT Coag (PPP) [Time] 21.6 s High 11.7-14.9 [facility] Comment on above: Order Comment: 411.2 Performed By: #### L 300.3900 ####[facility] [address] [place], [address] Prothrombin timeOrdered By: Karon Corrales on 08-25-2024 PT Coag (PPP) [Time] 21.6 s High 11.7-14.9 [facility] International normalized rat io (INR) calculationOrdered By: Karon Corrales on 08-21-2024 INR Coag (Bld) [Relative time] 1.7 {INR} [facility] PSA, total screeningOrdered By: Karon Corrales on 08-21-2024 Prostate Specific Antigen Screen 0.52 ng/mL 0.02-4.00 [facility] Comment on above: This test was perfor med using the [employer] tPSA method. Measured values of a patient sample can vary depending on the testing procedure used. PSA values determined on patient samples by different testing procedures cannot be used interchangeably. If there is a change in PSA assays while monitoring therapy, sequential testing should be performed to confirm baseline values. PSA,Total - Annual Screenon 08-21-2024 PSA,TOT SCREEN 0.52 ng/mL Normal 0.02-4.00 [facility] Comment on above: Order Comment: 411.2 [...] values. Performed By: #### L 501.9910, L300.3900 ####[facility] [address] [place], [address] Prothrombin Time w/INRon INR Coag (PPP) [Relative time] 1.7 {INR} Normal [facility] Comment on above: Order Comment: 411.2 Performed By: #### L 501.9910, L300.3900 ####[facility] [address] [place], [address] Prothrombin timeOrdered By: Karon Corrales on 08-21-2024 PT Coag (PPP) [Time] 20.1 s High 11.7-14.9 [facility] Comment on above: Order Comment: 411.2 Performed By: #### L 501.9910, L300.3900 ####[facility] [address] [place], [place], [phone] International normalized rat io (INR) calculationOrdered By: Karon Corrales on 08-18-2024 INR Coag (Bld) [Relative time] 3.0 {INR} [facility] Prothrombin Time w/INRon INR Coag (PPP) [Relative time] 3.0 {INR} Normal [facility] Comment on above: Order Comment: 411.2 Performed By: #### L 300.3900 ####[facility] [address] [place], [place], [phone] PT Coag (PPP) [Time] 31.4 s High 11.7-14.9 [facility] Comment on above: Order Comment: 411.2 Performed By: #### L 300.3900 ####[facility] [address] [place], [place], [phone]([phone] Prothrombin timeOrdered By: Karon Corrales on 08-18-2024 PT Coag (PPP) [Time] 31.4 s High 11.7-14.9 [facility] International normalized rat io (INR) calculationOrdered By: Karon Corrales on 08-14-2024 INR Coag (Bld) [Relative time] 2.4 {INR} [facility] Prothrombin Time w/INRon INR Coag (PPP) [Relative time] 2.4 {INR} Normal [facility] Comment on above: Order Comment: 411.2 Performed By: #### L 300.3900 ####[facility] [address] [place], [address] PT Coag (PPP) [Time] 26.6 s High 11.7-14.9 [facility] Comment on above: Order Comment: 411.2 Performed By: #### L 300.3900 ####[facility] [address] [place], [place], [phone] Prothrombin timeOrdered By: Karon Corrales on 08-14-2024 PT Coag (PPP) [Time] 26.6 s High 11.7-14.9 [facility] International normalized rat io (INR) calculationOrdered By: Karon Corrales on 08-11-2024 INR Coag (Bld) [Relative time] 3.1 {INR} [facility] Prothrombin Time w/INRon INR Coag (PPP) [Relative time] 3.1 {INR} Normal [facility] Comment on above: Order Comment: 411.2 Performed By: #### L 300.3900 ####[facility] [address] [place], [place], [phone] PT Coag (PPP) [Time] 32.4 s High 11.7-14.9 [facility] Comment on above: Order Comment: 411.2 Performed By: #### L 300.3900 ####[facility] [address] [place], [place], [phone] Prothrombin timeOrdered By: Karon Corrales on 08-11-2024 PT Coag (PPP) [Time] 32.4 s High 11.7-14.9 [facility] International normalized rat io (INR) calculationOrdered By: Carlos Cavazos on 08-07-2024 INR Coag (Bld) [Relative time] 2.8 {INR} [facility] Prothrombin Time w/INRon INR Coag (PPP) [Relative time] 2.8 {INR} Normal [facility] Comment on above: Order Comment: 411-2 Performed By: #### L 300.3900 ####[facility] [address] [place], [place], [phone] PT Coag (PPP) [Time] 30.3 s High 11.7-14.9 [facility] Comment on above: Order Comment: 411-2 Performed By: #### L 300.3900 ####[facility] [address] [place], [address] Prothrombin timeOrdered By: Carlos Cavazos on 08-07-2024 PT Coag (PPP) [Time] 30.3 s High 11.7-14.9 [facility] International normalized rat io (INR) calculationOrdered By: Carlos Cavazos on 08-04-2024 INR Coag (Bld) [Relative time] 1.9 {INR} [facility] Prothrombin Time w/INRon INR Coag (PPP) [Relative time] 1.9 {INR} Normal [facility] Comment on above: Order Comment: 411-2 Performed By: #### L 300.3900 ####[facility] [address] [place], [place], [phone] PT Coag (PPP) [Time] 22.1 s High 11.7-14.9 [facility] Comment on above: Order Comment: 411-2 Performed By: #### L 300.3900 ####[facility] [address] [place], [place], [phone] Prothrombin timeOrdered By: Carlos Cavazos on 08-04-2024 PT Coag (PPP) [Time] 22.1 s High 11.7-14.9 [facility] International normalized rat io (INR) calculationOrdered By: Karon Corrales on 07-31-2024 INR Coag (Bld) [Relative time] 3.2 {INR} [facility] Prothrombin Time w/INRon INR Coag (PPP) [Relative time] 3.2 {INR} Normal [facility] Comment on above: Order Comment: 411.2 Performed By: #### L 300.3900 ####[facility] [address] [place], [place], [phone] PT Coag (PPP) [Time] 33.5 s High 11.7-14.9 [facility] Comment on above: Order Comment: 411.2 Performed By: #### L 300.3900 ####[facility] [address] [place], [place], [phone] Prothrombin timeOrdered By: Karon Corrales on 07-31-2024 PT Coag (PPP) [Time] 33.5 s High 11.7-14.9 [facility] International normalized rat io (INR) calculationOrdered By: Karon Corrales on 07-28-2024 INR Coag (Bld) [Relative time] 2.7 {INR} [facility] Prothrombin Time w/INRon INR Coag (PPP) [Relative time] 2.7 {INR} Normal [facility] Comment on above: Order Comment: 411.2 Performed By: #### L 300.3900 ####[facility] [address] [place], [place], [phone] PT Coag (PPP) [Time] 29.6 s High 11.7-14.9 [facility] Comment on above: Order Comment: 411.2 Performed By: #### L 300.3900 ####[facility] [address] [place], [place], [address] Prothrombin timeOrdered By: Karno Corrales on 07-28-2024 PT Coag (PPP) [Time] 29.6 s High 11.7-14.9 [facility] International normalized rat io (INR) calculationOrdered By: Carlos Cavazos on 07-25-2024 INR Coag (Bld) [Relative time] 3.0 {INR} [facility] Prothrombin Time w/INRon INR Coag (PPP) [Relative time] 3.0 {INR} Normal [facility] Comment on above: Order Comment: 411-2 Performed By: #### L 300.3900 ####[facility] [address] [place], [address] Prothrombin timeOrdered By: Carlos Cavazos on 07-25-2024 PT Coag (PPP) [Time] 32.1 s High 11.7-14.9 [facility] Comment on above: Order Comment: 411-2 Performed By: #### L 300.3900 ####[facility] [address] [place], [place], [phone] International normalized rat io (INR) calculationOrdered By: Karon Corrales on 07-24-2024 INR Coag (Bld) [Relative time] 3.4 {INR} [facility] Prothrombin Time w/INRon INR Coag (PPP) [Relative time] 3.4 {INR} Normal [facility] Comment on above: Order Comment: 411.2 Performed By: #### L 300.3900 ####[facility] [address] [place], [place], [phone] Prothrombin timeOrdered By: Karon Corrales on 07-24-2024 PT Coag (PPP) [Time] 35.4 s High 11.7-14.9 [facility] Comment on above: Order Comment: 411.2 Performed By: #### L 300.3900 ####[facility] [address] [place], [place], [phone] International normalized rat io (INR) calculationOrdered By: Karon Corrales on 07-21-2024 INR Coag (Bld) [Relative time] 1.6 {INR} [facility] Prothrombin Time w/INRon INR Coag (PPP) [Relative time] 1.6 {INR} Normal [facility] Comment on above: Order Comment: 411.2 Performed By: #### L 300.3900 ####[facility] [address] [place], [place], [phone] PT Coag (PPP) [Time] 19.6 s High 11.7-14.9 [facility] Comment on above: Order Comment: 411.2 Performed By: #### L 300.3900 ####[facility] [address] [place], [place], [phone] Prothrombin timeOrdered By: Karon Corrales on 07-21-2024 PT Coag (PPP) [Time] 19.6 s High 11.7-14.9 [facility] International normalized rat io (INR) calculationOrdered By: Karon Corrales on 07-17-2024 INR Coag (Bld) [Relative time] 2.9 {INR} [facility] Prothrombin Time w/INRon INR Coag (PPP) [Relative time] 2.9 {INR} Normal [facility] Comment on above: Order Comment: 411.2 Performed By: #### L 300.3900 ####[facility] [address] [place], [place], [phone] PT Coag (PPP) [Time] 31.1 s High 11.7-14.9 [facility] Comment on above: Order Comment: 411.2 Performed By: #### L 300.3900 ####[facility] [address] [place], [address] Prothrombin timeOrdered By: Karon Corrales on 07-17-2024 PT Coag (PPP) [Time] 31.1 s High 11.7-14.9 [facility] International normalized rat io (INR) calculationOrdered By: Carlos Cavazos on 07-14-2024 INR Coag (Bld) [Relative time] 2.5 {INR} [facility] Prothrombin Time w/INRon INR Coag (PPP) [Relative time] 2.5 {INR} Normal [facility] Comment on above: Order Comment: 411-2 Performed By: #### L 300.3900 ####[facility] [address] [place], [address] PT Coag (PPP) [Time] 27.5 s High 11.7-14.9 [facility] Comment on above: Order Comment: 411-2 Performed By: #### L 300.3900 ####[facility] [address] [place], [address] Prothrombin timeOrdered By: Carlos Cavazos on 07-14-2024 PT Coag (PPP) [Time] 27.5 s High 11.7-14.9 [facility] International normalized rat io (INR) calculationOrdered By: Carlos Cavazos on 07-11-2024 INR Coag (Bld) [Relative time] 2.5 {INR} [facility] Prothrombin Time w/INRon INR Coag (PPP) [Relative time] 2.5 {INR} Normal [facility] Comment on above: Performed By: #### L 300.3900 ####[facility] [address] [place], [address] PT Coag (PPP) [Time] 27.7 s High 11.7-14.9 [facility] Comment on above: Performed By: #### L 300.3900 ####[facility] [address] [place], [place], [phone] Prothrombin timeOrdered By: Carlos Cavazos on 07-11-2024 PT Coag (PPP) [Time] 27.7 s High 11.7-14.9 [facility] Prothrombin Time w/INRon INR Normal [facility] Comment on above: Order Comment: 411.2 Result Comment: QNS TUBE NOT FILLED Performed By: #### L 300.3900 ####[facility] [address] [place], [place], [phone] PROTIME Normal 11.7-14.9 [facility] Comment on above: Order Comment: 411.2 Result Comment: QNS TUBE NOT FILLED Performed By: #### L 300.3900 ####[facility] [address] [place], [place], [phone] International normalized rat io (INR) calculationOrdered By: Kvng Crisostomo on 07-07-2024 INR Coag (Bld) [Relative time] 2.5 {INR} [facility] Prothrombin Time w/INRon INR Coag (PPP) [Relative time] 2.5 {INR} Normal [facility] Comment on above: Order Comment: 411.2 Performed By: #### L 300.3900 ####[facility] [address] [place], [address] PT Coag (PPP) [Time] 27.2 s High 11.7-14.9 [facility] Comment on above: Order Comment: 411.2 Performed By: #### L 300.3900 ####[facility] [address] [place], [address] Prothrombin timeOrdered By: Kvng Crisostomo on 07-07-2024 PT Coag (PPP) [Time] 27.2 s High 11.7-14.9 [facility] International normalized rat io (INR) calculationOrdered By: Knvg Crisostomo on 07-03-2024 INR Coag (Bld) [Relative time] 2.5 {INR} [facility] Prothrombin Time w/INRon INR Coag (PPP) [Relative time] 2.5 {INR} Normal [facility] Comment on above: Order Comment: 411.2 Performed By: #### L 300.3900 ####[facility] [address] [place], [address] PT Coag (PPP) [Time] 27.2 s High 11.7-14.9 [facility] Comment on above: Order Comment: 411.2 Performed By: #### L 300.3900 ####[facility] [address] [place], [address] Prothrombin timeOrdered By: Kvng Crisostomo on 07-03-2024 PT Coag (PPP) [Time] 27.2 s High 11.7-14.9 [facility] International normalized rat io (INR) calculationOrdered By: Kvng Crisostomo on 06-30-2024 INR Coag (Bld) [Relative time] 2.4 {INR} [facility] Prothrombin Time w/INRon INR Coag (PPP) [Relative time] 2.4 {INR} Normal [facility] Comment on above: Order Comment: 411.2 Performed By: #### L 300.3900 ####[facility] [address] [place], [address] PT Coag (PPP) [Time] 26.8 s High 11.7-14.9 [facility] Comment on above: Order Comment: 411.2 Performed By: #### L 300.3900 ####[facility] [address] [place], [address] Prothrombin timeOrdered By: Kvng Crisostomo on 06-30-2024 PT Coag (PPP) [Time] 26.8 s High 11.7-14.9 [facility] International normalized rat io (INR) calculationOrdered By: Kvng Crisostomo on 06-26-2024 INR Coag (Bld) [Relative time] 2.5 {INR} [facility] Prothrombin Time w/INRon INR Coag (PPP) [Relative time] 2.5 {INR} Normal [facility] Comment on above: Order Comment: 411.2 Performed By: #### L 300.3900 ####[facility] [address] [place], [address] PT Coag (PPP) [Time] 27.5 s High 11.7-14.9 [facility] Comment on above: Order Comment: 411.2 Performed By: #### L 300.3900 ####[facility] [address] [place], [place], [phone]([phone] Prothrombin timeOrdered By: Kvng Crisostomo on 06-26-2024 PT Coag (PPP) [Time] 27.5 s High 11.7-14.9 [facility] International normalized rat io (INR) calculationOrdered By: Carlos Cavazos on 06-23-2024 INR Coag (Bld) [Relative time] 2.8 {INR} [facility] Prothrombin Time w/INRon INR Coag (PPP) [Relative time] 2.8 {INR} [facility] Comment on above: Order Comment: 411-2 Performed By: #### L 300.3900 ####[facility] [address] [place], [address] PT Coag (PPP) [Time] 29.7 s High 11.7-14.9 [facility] Comment on above: Order Comment: 411-2 Performed By: #### L 300.3900 ####[facility] [address] [place], [address] Prothrombin timeOrdered By: Carlos Cavazos on 06-23-2024 PT Coag (PPP) [Time] 29.7 s High 11.7-14.9 [facility] International normalized rat io (INR) calculationOrdered By: Kvng Crisostomo on 06-19-2024 INR Coag (Bld) [Relative time] 2.6 {INR} [facility] Prothrombin Time w/INRon INR Coag (PPP) [Relative time] 2.6 {INR} Normal [facility] Comment on above: Order Comment: 411.2 Performed By: #### L 300.3900 ####[facility] [address] [place], [address] PT Coag (PPP) [Time] 28.6 s High 11.7-14.9 [facility] Comment on above: Order Comment: 411.2 Performed By: #### L 300.3900 ####[facility] [address] [place], [address] Prothrombin timeOrdered By: Kvng Crisostomo on 06-19-2024 PT Coag (PPP) [Time] 28.6 s High 11.7-14.9 [facility] normalized rat io (INR) calculationOrdered By: Kvng Crisostomo on 06-16-2024 INR Coag (Bld) [Relative time] 2.5 {INR} [facility] Prothrombin Time w/INRon INR Coag (PPP) [Relative time] 2.5 {INR} Normal [facility] Comment on above: Order Comment: 411.2 Performed By: #### L 300.3900 ####[facility] [address] [place], [address] PT Coag (PPP) [Time] 27.3 s High 11.7-14.9 [facility] Comment on above: Order Comment: 411.2 Performed By: #### L 300.3900 ####[facility] [address] [place], [address] Prothrombin timeOrdered By: Kvng Crisostomo on 06-16-2024 PT Coag (PPP) [Time] 27.3 s High 11.7-14.9 [facility] normalized rat io (INR) calculationOrdered By: Kvng Crisostomo on 06-12-2024 INR Coag (Bld) [Relative time] 2.1 {INR} [facility] Prothrombin Time w/INRon INR Coag (PPP) [Relative time] 2.1 {INR} Normal [facility] Comment on above: Order Comment: 411.2 Performed By: #### L 300.3900 ####[facility] [address] [place], [address] PT Coag (PPP) [Time] 24.0 s High 11.7-14.9 [facility] Comment on above: Order Comment: 411.2 Performed By: #### L 300.3900 ####[facility] [address] [place], [address] Prothrombin timeOrdered By: Kvng Crisostomo on 06-12-2024 PT Coag (PPP) [Time] 24.0 s High 11.7-14.9 [facility] normalized rat io (INR) calculationOrdered By: Carlos Cavazos on 06-09-2024 INR Coag (Bld) [Relative time] 1.5 {INR} [facility] Prothrombin Time w/INRon INR Coag (PPP) [Relative time] 1.5 {INR} Normal [facility] Comment on above: Order Comment: 411-2 Performed By: #### L 300.3900 ####[facility] [address], [address] PT Coag (PPP) [Time] 18.0 s High 11.7-14.9 [facility] Comment on above: Order Comment: 411-2 Performed By: #### L 300.3900 ####[facility] [address] [place], [address] Prothrombin timeOrdered By: Carlos Cavazos on 06-09-2024 PT Coag (PPP) [Time] 18.0 s High 11.7-14.9 [facility] normalized rat io (INR) calculationOrdered By: Kvng Crisostomo on 06-05-2024 INR Coag (Bld) [Relative time] 2.8 {INR} [facility] Prothrombin Time w/INRon INR Coag (PPP) [Relative time] 2.8 {INR} Normal [facility] Comment on above: Order Comment: 411.2 Performed By: #### L 300.3900 ####[facility] [address] [place], [address] PT Coag (PPP) [Time] 30.3 s High 11.7-14.9 [facility] Comment on above: Order Comment: 411.2 Performed By: #### L 300.3900 ####[facility] [address] [place], [address] Prothrombin timeOrdered By: Kvng Crisostomo on 06-05-2024 PT Coag (PPP) [Time] 30.3 s High 11.7-14.9 [facility] normalized rat io (INR) calculationOrdered By: Kvng Crisostomo on 06-02-2024 INR Coag (Bld) [Relative time] 2.6 {INR} [facility] Prothrombin Time w/INRon INR Coag (PPP) [Relative time] 2.6 {INR} Normal [facility] Comment on above: Order Comment: 411.2 Performed By: #### L 300.3900 ####[facility] [address] [place], [address] PT Coag (PPP) [Time] 28.6 s High 11.7-14.9 [facility] Comment on above: Order Comment: 411.2 Performed By: #### L 300.3900 ####[facility] [address] [facility] [address] Prothrombin timeOrdered By: Kvng Crisostomo on 06-02-2024 PT Coag (PPP) [Time] 28.6 s High 11.7-14.9 [facility] normalized rat io (INR) calculationOrdered By: Kvng Crisostomo on 05-29-2024 INR Coag (Bld) [Relative time] 2.5 {INR} [facility] Prothrombin Time w/INRon INR Coag (PPP) [Relative time] 2.5 {INR} Normal [facility] Comment on above: Order Comment: 411.2 Performed By: #### L 300.3900 ####[facility] [address] [place], [address] PT Coag (PPP) [Time] 27.7 s High 11.7-14.9 [facility] Comment on above: Order Comment: 411.2 Performed By: #### L 300.3900 ####[facility] [address] [place], [address] Prothrombin timeOrdered By: Kvng Crisostomo on 05-29-2024 PT Coag (PPP) [Time] 27.7 s High 11.7-14.9 [facility] normalized rat io (INR) calculationOrdered By: Carlos Cavazos on 05-26-2024 INR Coag (Bld) [Relative time] 2.2 {INR} [facility] Prothrombin Time w/INRon INR Coag (PPP) [Relative time] 2.2 {INR} Normal [facility] Comment on above: Order Comment: 411-2 Performed By: #### L 300.3900 ####[facility] [address] [place], [place], [phone] PT Coag (PPP) [Time] 24.5 s High 11.7-14.9 [facility] Comment on above: Order Comment: 411-2 Performed By: #### L 300.3900 ####[facility] [address] [place], [address] Prothrombin timeOrdered By: Carlos Cavazos on 05-26-2024 PT Coag (PPP) [Time] 24.5 s High 11.7-14.9 [facility] normalized rat io (INR) calculationOrdered By: Kvng Crisostomo on 05-22-2024 INR Coag (Bld) [Relative time] 2.8 {INR} [facility] Prothrombin Time w/INRon INR Coag (PPP) [Relative time] 2.8 {INR} Normal [facility] Comment on above: Order Comment: 411.2 Performed By: #### L 300.3900 ####[facility] [address] [place], [place], [phone] PT Coag (PPP) [Time] 30.3 s High 11.7-14.9 [facility] Comment on above: Order Comment: 411.2 Performed By: #### L 300.3900 ####[facility] [address] [place], [address] Prothrombin timeOrdered By: Kvng Crisostomo on 05-22-2024 PT Coag (PPP) [Time] 30.3 s High 11.7-14.9 [facility] normalized rat io (INR) calculationOrdered By: Kvng Crisostomo on 05-20-2024 INR Coag (Bld) [Relative time] 4.0 {INR} High [facility] Comment on above: CRITICAL VALUE CASEY D TO [id number]/14/25 08 Diana Srinivasan.RESULTS READ BACK BY SAME. Prothrombin Time w/INRon INR Coag (PPP) [Relative time] 4.0 {INR} Invalid Interpretation Code [facility] Comment on above: Order Comment: 411.2 Result Comment: CRIT ICAL VALUE CALLED TO YPHSAOVYM90/14/25 [facility] Diana Mattson.RESULTS READ BACK BY SAME. Performed By: #### L 300.3900 ####[facility] [address] [place], [place], [phone]) PT Coag (PPP) [Time] 39.9 s High 11.7-14.9 [facility] Comment on above: Order Comment: 411.2 Performed By: #### L 300.3900 ####[facility] [address] [place], [place], [phone]) Prothrombin timeOrdered By: Kvng Crisostomo on 05-20-2024 PT Coag (PPP) [Time] 39.9 s High 11.7-14.9 [facility] normalized rat io (INR) calculationOrdered By: Kvng Crisostomo on 05-19-2024 INR Coag (Bld) [Relative time] 3.4 {INR} [facility] Prothrombin Time w/INRon INR Coag (PPP) [Relative time] 3.4 {INR} Normal [facility] Comment on above: Order Comment: 411.2 Performed By: #### L 300.3900 ####[facility] [address] [place], [place], [phone]) PT Coag (PPP) [Time] 35.4 s High 11.7-14.9 [facility] Comment on above: Order Comment: 411.2 Performed By: #### L 300.3900 ####[facility] [address] [place], [place], [phone]) Prothrombin timeOrdered By: Kvng Crisostomo on 05-19-2024 PT Coag (PPP) [Time] 35.4 s High 11.7-14.9 [facility] normalized rat io (INR) calculationOrdered By: Kvng Crisostomo on 05-15-2024 INR Coag (Bld) [Relative time] 2.6 {INR} [facility] Prothrombin Time w/INRon INR Coag (PPP) [Relative time] 2.6 {INR} Normal [facility] Comment on above: Order Comment: 411.2 Performed By: #### L 300.3900 ####[facility] [address] [place], [place], [phone] PT Coag (PPP) [Time] 28.7 s High 11.7-14.9 [facility] Comment on above: Order Comment: 411.2 Performed By: #### L 300.3900 ####[facility] [address] [place], [address] Prothrombin timeOrdered By: Kvng Crisostomo on 05-15-2024 PT Coag (PPP) [Time] 28.7 s High 11.7-14.9 [facility] normalized rat io (INR) calculationOrdered By: Carlos Cavazos on 05-12-2024 INR Coag (Bld) [Relative time] 2.1 {INR} [facility] Prothrombin Time w/INRon INR Coag (PPP) [Relative time] 2.1 {INR} Normal [facility] Comment on above: Order Comment: 411-2 Performed By: #### L 300.3900 ####[facility] [address] [place], [address] PT Coag (PPP) [Time] 24.1 s High 11.7-14.9 [facility] Comment on above: Order Comment: 411-2 Performed By: #### L 300.3900 ####[facility] [address] [place], [place], [phone] Prothrombin timeOrdered By: Carlos Cavazos on 05-12-2024 PT Coag (PPP) [Time] 24.1 s High 11.7-14.9 [facility] normalized rat io (INR) calculationOrdered By: Kvng Crisostomo on 05-09-2024 INR Coag (Bld) [Relative time] 3.4 {INR} [facility] Prothrombin Time w/INRon INR Coag (PPP) [Relative time] 3.4 {INR} Normal [facility] Comment on above: Order Comment: 411.2 Performed By: #### L 300.3900 ####[facility] [address] [place], [place], [phone] PT Coag (PPP) [Time] 35.4 s High 11.7-14.9 [facility] Comment on above: Order Comment: 411.2 Performed By: #### L 300.3900 ####[facility] [address] [place], [place], [phone] Prothrombin timeOrdered By: Kvng Crisostomo on 05-09-2024 PT Coag (PPP) [Time] 35.4 s High 11.7-14.9 [facility] normalized rat io (INR) calculationOrdered By: Kvng Crisostomo on 05-08-2024 INR Coag (Bld) [Relative time] 4.1 {INR} High [facility] Comment on above: CRITICAL VALUE CASEY D TO [facility]05/08/24 0950 Karen Jamison.RESULTS READ BACK BY SAME. Prothrombin Time w/INRon INR Coag (PPP) [Relative time] 4.1 {INR} Invalid Interpretation Code [facility] Comment on above: Order Comment: 411.2 Result Comment: CRIT ICAL VALUE CALLED TO WILMER HAIRSTONCA05/08/24 0950 Karen Jamison.RESULTS READ BACK BY SAME. Performed By: #### L 300.3900 ####[facility] [address] [place], [address] PT Coag (PPP) [Time] 40.8 s High 11.7-14.9 [facility] Comment on above: Order Comment: 411.2 Performed By: #### L 300.3900 ####[facility] [address] [place], [address] Prothrombin timeOrdered By: Babbaljeet Andressa on 05-08-2024 PT Coag (PPP) [Time] 40.8 s High 11.7-14.9 [facility] normalized rat io (INR) calculationOrdered By: Babbaljeet Crisostomo on 05-05-2024 INR Coag (Bld) [Relative time] 3.2 {INR} [facility] Prothrombin Time w/INRon INR Coag (PPP) [Relative time] 3.2 {INR} Normal [facility] Comment on above: Order Comment: 411.2 Performed By: #### L 300.3900 ####[facility] [address] [place], [address] PT Coag (PPP) [Time] 32.5 s High 11.7-14.9 [facility] Comment on above: Order Comment: 411.2 Performed By: #### L 300.3900 ####[facility] [address] [place], [address] Prothrombin timeOrdered By: Babbaljeet Crisostomo on 05-05-2024 PT Coag (PPP) [Time] 32.5 s High 11.7-14.9 [facility] normalized rat io (INR) calculationOrdered By: Babbaljeet Crisostomo on 05-01-2024 INR Coag (Bld) [Relative time] 3.1 {INR} [facility] Prothrombin Time w/INRon INR Coag (PPP) [Relative time] 3.1 {INR} Normal [facility] Comment on above: Order Comment: 411.2 Performed By: #### L 300.3900 ####[facility] [address] [place], [address] PT Coag (PPP) [Time] 31.9 s High 11.7-14.9 [facility] Comment on above: Order Comment: 411.2 Performed By: #### L 300.3900 ####[facility] [address] [place], [address] Prothrombin timeOrdered By: Kvng Crisostomo on 05-01-2024 PT Coag (PPP) [Time] 31.9 s High 11.7-14.9 [facility] normalized rat io (INR) calculationOrdered By: Carlos Cavazos on 04-28-2024 INR Coag (Bld) [Relative time] 2.6 {INR} [facility] Prothrombin Time w/INRon INR Coag (PPP) [Relative time] 2.6 {INR} Normal [facility] Comment on above: Order Comment: 411-2 Performed By: #### L 300.3900 ####[facility] [address] [place], [address] PT Coag (PPP) [Time] 27.3 s High 11.7-14.9 [facility] Comment on above: Order Comment: 411-2 Performed By: #### L 300.3900 ####[facility] [address] [place], [address] Prothrombin timeOrdered By: Carlos Cavazos on 04-28-2024 PT Coag (PPP) [Time] 27.3 s High 11.7-14.9 [facility] normalized rat io (INR) calculationOrdered By: Kvng Crisostomo on 04-24-2024 INR Coag (Bld) [Relative time] 3.6 {INR} [facility] Prothrombin Time w/INRon INR Coag (PPP) [Relative time] 3.6 {INR} Normal [facility] Comment on above: Order Comment: 411.2 Performed By: #### L 300.3900 ####[facility] [address] [place], [address] PT Coag (PPP) [Time] 35.6 s High 11.7-14.9 [facility] Comment on above: Order Comment: 411.2 Performed By: #### L 300.3900 ####[facility] [address] [place], [address] Prothrombin timeOrdered By: Kvng Crisostomo on 04-24-2024 PT Coag (PPP) [Time] 35.6 s High 11.7-14.9 [facility] normalized rat io (INR) calculationOrdered By: Carlos Cavazos on 04-21-2024 INR Coag (Bld) [Relative time] 2.8 {INR} [facility] Prothrombin Time w/INRon INR Coag (PPP) [Relative time] 2.8 {INR} Normal [facility] Comment on above: Order Comment: 411-2 Performed By: #### L 300.3900 ####[facility] [address] [place], [address] PT Coag (PPP) [Time] 29.4 s High 11.7-14.9 [facility] Comment on above: Order Comment: 411-2 Performed By: #### L 300.3900 ####[facility] [address] [place], [address] Prothrombin timeOrdered By: Carlos Cavazos on 04-21-2024 PT Coag (PPP) [Time] 29.4 s High 11.7-14.9 [facility] normalized rat io (INR) calculationOrdered By: Kvng Crisostomo on 04-17-2024 INR Coag (Bld) [Relative time] 3.1 {INR} [facility] Prothrombin Time w/INRon INR Coag (PPP) [Relative time] 3.1 {INR} Normal [facility] Comment on above: Order Comment: 411.2 Performed By: #### L 300.3900 ####[facility] [address] [place], [place], [phone](668) Prothrombin timeOrdered By: Kvng Crisostomo on 04-17-2024 PT Coag (PPP) [Time] 31.3 s High 11.7-14.9 [facility] Comment on above: Order Comment: 411.2 Performed By: #### L 300.3900 ####[facility] [address] [place], [place], [phone](235) International normalized rat io (INR) calculationOrdered By: Kvng Crisostomo on 04-14-2024 INR Coag (Bld) [Relative time] 3.3 {INR} [facility] Prothrombin Time w/INRon INR Coag (PPP) [Relative time] 3.3 {INR} Normal [facility] Comment on above: Order Comment: 411.2 Performed By: #### L 300.3900 ####[facility] [address] [place], [place], [phone](138) PT Coag (PPP) [Time] 33.2 s High 11.7-14.9 [facility] Comment on above: Order Comment: 411.2 Performed By: #### L 300.3900 ####[facility] [address] [place], [place], [phone](327) Prothrombin timeOrdered By: Kvng Crisostomo on 04-14-2024 PT Coag (PPP) [Time] 33.2 s High 11.7-14.9 [facility] normalized rat io (INR) calculationOrdered By: Kvng Crisostomo on 04-10-2024 INR Coag (Bld) [Relative time] 2.8 {INR} [facility] Prothrombin Time w/INRon INR Coag (PPP) [Relative time] 2.8 {INR} Normal [facility] Comment on above: Order Comment: 411.2 Performed By: #### L 300.3900 ####[facility] [address] [place], [address] PT Coag (PPP) [Time] 29.2 s High 11.7-14.9 [facility] Comment on above: Order Comment: 411.2 Performed By: #### L 300.3900 ####[facility] [address] [place], [address] Prothrombin timeOrdered By: Kvng Crisostomo on 04-10-2024 PT Coag (PPP) [Time] 29.2 s High 11.7-14.9 [facility] normalized rat io (INR) calculationOrdered By: Carlos Cavazos on 04-07-2024 INR Coag (Bld) [Relative time] 2.7 {INR} [facility] Prothrombin Time w/INRon INR Coag (PPP) [Relative time] 2.7 {INR} Normal [facility] Comment on above: Order Comment: 411-2 Performed By: #### L 300.3900 ####[facility] [address] [place], [address] PT Coag (PPP) [Time] 28.1 s High 11.7-14.9 [facility] Comment on above: Order Comment: 411-2 Performed By: #### L 300.3900 ####[facility] [address] [place], [address] Prothrombin timeOrdered By: Carlos Cavazos on 04-07-2024 PT Coag (PPP) [Time] 28.1 s High 11.7-14.9 [facility] normalized rat io (INR) calculationOrdered By: Kvng Crisostomo on 04-04-2024 INR Coag (Bld) [Relative time] 2.8 {INR} [facility] Prothrombin Time w/INRon INR Coag (PPP) [Relative time] 2.8 {INR} Normal [facility] Comment on above: Order Comment: 411.2 Performed By: #### L 300.3900 ####[facility] [address] [place], [address] PT Coag (PPP) [Time] 28.9 s High 11.7-14.9 [facility] Comment on above: Order Comment: 411.2 Performed By: #### L 300.3900 ####[facility] [address] [place], [address] Prothrombin timeOrdered By: Kvng Crisostomo on 04-04-2024 PT Coag (PPP) [Time] 28.9 s High 11.7-14.9 [facility] normalized rat io (INR) calculationOrdered By: Carlos Cavazos on 03-31-2024 INR Coag (Bld) [Relative time] 2.6 {INR} [facility] Prothrombin Time w/INRon INR Coag (PPP) [Relative time] 2.6 {INR} Normal [facility] Comment on above: Order Comment: 411-2 Performed By: #### L 300.3900 ####[facility] [address] [place], [address] PT Coag (PPP) [Time] 27.3 s High 11.7-14.9 [facility] Comment on above: Order Comment: 411-2 Performed By: #### L 300.3900 ####[facility] [address] [place], [address] Prothrombin timeOrdered By: Carlos Cavazos on 03-31-2024 PT Coag (PPP) [Time] 27.3 s High 11.7-14.9 [facility] normalized rat io (INR) calculationOrdered By: [employer] on 03-27-2024 INR Coag (Bld) [Relative time] 2.2 {INR} [facility] Prothrombin Time w/INRon INR Coag (PPP) [Relative time] 2.2 {INR} Normal [facility] Comment on above: Order Comment: 411.2 Performed By: #### L 300.3900 ####[facility] [address] [place], [address] PT Coag (PPP) [Time] 24.3 s High 11.7-14.9 [facility] Comment on above: Order Comment: 411.2 Performed By: #### L 300.3900 ####[facility] [address] [place], [address] Prothrombin timeOrdered By: [employer] on 03-27-2024 PT Coag (PPP) [Time] 24.3 s High 11.7-14.9 [facility] normalized rat io (INR) calculationOrdered By: Kvng Crisostomo on 03-24-2024 INR Coag (Bld) [Relative time] 1.8 {INR} [facility] Prothrombin Time w/INRon INR Coag (PPP) [Relative time] 1.8 {INR} Normal [facility] Comment on above: Order Comment: 411.2 Performed By: #### L 300.3900 ####[facility] [address] [place], [address] PT Coag (PPP) [Time] 20.7 s High 11.7-14.9 [facility] Comment on above: Order Comment: 411.2 Performed By: #### L 300.3900 ####[facility] [address] [place], [address] Prothrombin timeOrdered By: Kvng Crisostomo on 03-24-2024 PT Coag (PPP) [Time] 20.7 s High 11.7-14.9 [facility] normalized rat io (INR) calculationOrdered By: [employer] on 03-20-2024 INR Coag (Bld) [Relative time] 1.8 {INR} [facility] Prothrombin Time w/INRon INR Coag (PPP) [Relative time] 1.8 {INR} Normal [facility] Comment on above: Order Comment: 411.2 Performed By: #### L 300.3900 ####[facility] [address] [place], [address] PT Coag (PPP) [Time] 20.9 s High 11.7-14.9 [facility] Comment on above: Order Comment: 411.2 Performed By: #### L 300.3900 ####[facility] [address] [place], [address] Prothrombin timeOrdered By: [employer] on 03-20-2024 PT Coag (PPP) [Time] 20.9 s High 11.7-14.9 [facility] normalized rat io (INR) calculationOrdered By: Kvng Crisostomo on 03-19-2024 INR Coag (Bld) [Relative time] 2.4 {INR} [facility] Prothrombin Time w/INRon INR Coag (PPP) [Relative time] 2.4 {INR} Normal [facility] Comment on above: Order Comment: 411.2 Performed By: #### L 300.3900 ####[facility] [address] [place], [address] PT Coag (PPP) [Time] 26.4 s High 11.7-14.9 [facility] Comment on above: Order Comment: 411.2 Performed By: #### L 300.3900 ####[facility] [address] [place], [address] Prothrombin timeOrdered By: Kvng Crisostomo on 03-19-2024 PT Coag (PPP) [Time] 26.4 s High 11.7-14.9 [facility] normalized rat io (INR) calculationOrdered By: [employer] on 03-18-2024 INR Coag (Bld) [Relative time] 3.2 {INR} [facility] Prothrombin timeOrdered By: [employer] on 03-18-2024 PT Coag (PPP) [Time] 32.3 s High 11.7-14.9 [facility] normalized rat io (INR) calculationOrdered By: [employer] on 03-17-2024 INR Coag (Bld) [Relative time] 3.6 {INR} [facility] Prothrombin timeOrdered By: [employer] on 03-17-2024 PT Coag (PPP) [Time] 35.7 s High 11.7-14.9 [facility] normalized rat io (INR) calculationOrdered By: Carlos Cavazos on 03-14-2024 INR Coag (Bld) [Relative time] 3.5 {INR} [facility] Prothrombin timeOrdered By: Carlos Cavazos on 03-14-2024 PT Coag (PPP) [Time] 35.0 s High 11.7-14.9 [facility] normalized rat io (INR) calculationOrdered By: [employer] on 03-13-2024 INR Coag (Bld) [Relative time] 3.2 {INR} [facility] Prothrombin timeOrdered By: [employer] on 03-13-2024 PT Coag (PPP) [Time] 32.2 s High 11.7-14.9 [facility] Office Visiton 09-13-2023 Follow-up visit [id number] GurpreetTamie 1950 M [place] Provider Department Center 09/13/2023 [id number]-NHGGEAREBECCA BUCK [facility] URO None Family History Problem Relation Age of Onset Heart disease Father Cancer Mother Family Status - Relation Status Age at Father Mother Level of Service:16943 [place] OFFICE/OUTPATIENT ESTABLISHED MOD MDM 30 MIN Reason for Visit and Comments: left flank pain [Other] - 8/10 pain when touched Normal [facility] Progress Noteon 09-13-2023 Progress Note Walt [...] Hydrocephalus, adult (CMS/HCC) (HCC) Kidney stone Neuropathy [employer]ATE (ventriculoperitoneal) shunt status Past Surgical History: Procedure [...] 03/02/2022 CR (more content not included)... Normal [facility] CT ABDOMEN PELVIS WO IV CONT Kelly 09-07-2023 CT ABDOMEN PELVIS WO IV CONTRAST [facility] Name[facility] 1950 [id number] Exam Date/Time: 09/06/2023 18:14 Procedure: CT ABDOMEN [...] a kidney stone; pt has a hernia [place] [id number] 36 Lm on daughters vm t o advise them to call the number for the consulting solution manager to get clarification, and to call back with further questions [place] [id number] 36 Yes, they will need to call the number given to them. [facility] 36 Please advise [address] 08-21-2023 36 Name of caller: Zion holt Contact phone number: [phone] Relationship to Patient: patient Provider: MD Quinn Practice: [facility] Urology Chief Complaint/Reason for Call: Shanthi called [...] to reach out to call Maury Cedeño Early Intervention Specialist at [facility] [phone] to get clarifications. TEA did reach back out to [facility] Children and advised and provider Maury's #. Please advise Best time of day caller can be reached: Any Patient advised that office/PCP has 24-48 business hours to return their call: N/A Normal [facility] Laboratory - CoagulationOrde red By: Carlos Cavazos on 08-21-2023 INR Coag (Bld) [Relative time] 2.7 {INR} [facility] PT Coag (PPP) [Time] 28.9 s 11.7-14.9 [facility] Office Visiton 08-13-2023 Follow-up visit [id number] Tamie Sifuentes cheng R 1950 M Pasha Provider Department Center 08/13/2023 [id number] BUCK [facility] None Family History Problem Relation Age of Onset Heart disease Father Cancer Mother Family Status - Relation Status Age at Father Mother Level of Service:17671 [place] OFFICE/OUTPATIENT NEW MODERATE MDM 45 MINUTES Reason for Visit and Comments: New Patient [542] - Bilateral flank pain, hx of kidney stones Nephrolithiasis [[id number]] Normal [facility] Progress Noteon 08-13-2023 Progress Note Walt [...] Hydrocephalus, adult (CMS/HCC) (HCC) Kidney stone Neuropathy [employer] (ventriculoperitoneal) shunt status Past Surgical History: Past [...] CT ab (more content not included)... Normal [facility] No Panel InformationOrdered By: Cralos Cavazos on 08-03-2023 Levetiracetam (Keppra) Level 32.4 ug/mL 10.0-40.0 [facility] Comment on above: Performed at: [address] [id number] Director: Alpesh Vázquez MD, Phone: [phone] Basophil percentageOrdered B y: Carlos Cavazos on 07-20-2023 Chloride [Moles/Vol] 106 mmol/L 98-107 [facility] Glucose [Mass/Vol] 98 mg/dL 74-106 [facility] Hemoglobin (Bld) [Mass/Vol] 12.5 g/dL 13.0-16.5 [facility] Potassium [Moles/Vol] 4.3 mmol/L 3.5-5.1 [facility] Sodium [Moles/Vol] 135 mmol/L 136-145 [facility] WBC (Bld) [#/Vol] 13.0 10*3/uL 4.4-11.0 [facility] Determination of erythrocyte mean corpuscular volume (MCV)Ordered By: Carlos Cavazos on 07-20-2023 MCV (RBC) [Entitic vol] 86.2 fL 80-94 [facility] Erythrocyte distribution wid th ratioOrdered By: Carlos Cavazos on 07-20-2023 Erythrocyte distribution width (RBC) [Ratio] 15.3 % 11.6-14.6 [facility] Erythrocyte distribution wid th standard deviationOrdered By: Carlos Cavazos on 07-20-2023 Erythrocyte distribution width (RBC) [Entitic vol] 48.1 fL 35.1-43.9 [facility] Hematocrit Auto (Bld) [Volum e fraction]Ordered By: Carlos Cavazos on 07-20-2023 Hematocrit (Bld) [Volume fraction] 39.9 % 40-54 [facility] Laboratory - Chemistry and C hemistry - challengeOrdered By: Carlos Cavazos on 07-20-2023 CO2 [Moles/Vol] 24.0 mmol/L 21.0-32.0 [facility] Urea nitrogen/Creatinine [Mass ratio] 24.6 mg/mg 10-20 [facility] Laboratory - Hematology and Cell countsOrdered By: Carlos Cavazos on 07-20-2023 MCH (RBC) [Entitic mass] 27.0 pg 27.0-32.0 [facility] MCHC (RBC) [Mass/Vol] 31.3 g/dL 32-36 [facility] Platelet mean volume (Bld) [Entitic vol] 10.7 fL 6.2-12.0 [facility] Platelets (Bld) [#/Vol] 260 10*3/uL 150-450 [facility] No Panel InformationOrdered By: Carlos Cavazos on 07-20-2023 Estimated GFR (MDRD) Amer 114 mL/min >60 [facility] Comment on above: GFR Calc Estimated GFR (MDRD) Non-Af Amer 94 mL/min >60 [facility] Comment on above: Non- GFR Calc RBC Auto (Bld) [#/Vol]Ordere d By: Carlos Cavazos on 07-20-2023 RBC (Bld) [#/Vol] 4.63 10*6/uL 4.6-6.2 [facility] Serum or plasma calcium oral urement (mass/volume)Ordered By: Carlos Cavazos on 07-20-2023 Calcium [Mass/Vol] 8.6 mg/dL 8.5-10.1 [facility] Serum or plasma creatinine m easurement (mass/volume)Ordered By: Carlos Cavazos on 07-20-2023 Creatinine [Mass/Vol] 0.85 mg/dL 0.70-1.30 [facility] Comment on above: The validity of the calculated GFR & GFRAA in patients over 70 years has not been determined. Clinical correlation is essential. Serum or plasma urea nitroge n measurement (mass/volume)Ordered By: Carlos Cavazos on 07-20-2023 Urea nitrogen [Mass/Vol] 21 mg/dL 7-18 [facility] Thin prep Papanicolaou smear with manual screeningOrdered By: Carlos Cavazos on 07-20-2023 Thin prep Papanicolaou smear with manual screening 5 5-15 [facility] Basophil percentageOrdered B y: Carlos Cavazos on 07-18-2023 Chloride [Moles/Vol] 102 mmol/L 98-107 [facility] Glucose [Mass/Vol] 96 mg/dL 74-106 [facility] Hemoglobin (Bld) [Mass/Vol] 12.3 g/dL 13.0-16.5 [facility] Potassium [Moles/Vol] 4.2 mmol/L 3.5-5.1 [facility] Sodium [Moles/Vol] 136 mmol/L 136-145 [facility] WBC (Bld) [#/Vol] 14.7 10*3/uL 4.4-11.0 [facility] Determination of erythrocyte mean corpuscular volume (MCV)Ordered By: Carlos Cavazos on 07-18-2023 MCV (RBC) [Entitic vol] 85.4 fL 80-94 [facility] Erythrocyte distribution wid th ratioOrdered By: Carlos Caavzos on 07-18-2023 Erythrocyte distribution width (RBC) [Ratio] 15.1 % 11.6-14.6 [facility] Erythrocyte distribution wid th standard deviationOrdered By: Carlos Cavazos on 07-18-2023 Erythrocyte distribution width (RBC) [Entitic vol] 47.3 fL 35.1-43.9 [facility] Hematocrit Auto (Bld) [Volum e fraction]Ordered By: Carlos Cavazos on 07-18-2023 Hematocrit (Bld) [Volume fraction] 39.3 % 40-54 [facility] Laboratory - Chemistry and C hemistry - challengeOrdered By: Carlos Cavazos on 07-18-2023 CO2 [Moles/Vol] 27.0 mmol/L 21.0-32.0 [facility] Urea nitrogen/Creatinine [Mass ratio] 24.4 mg/mg 10-20 [facility] Laboratory - Hematology and Cell countsOrdered By: Carlos Cavazos on 07-18-2023 MCH (RBC) [Entitic mass] 26.7 pg 27.0-32.0 [facility] MCHC (RBC) [Mass/Vol] 31.3 g/dL 32-36 [facility] Platelet mean volume (Bld) [Entitic vol] 10.3 fL 6.2-12.0 [facility] Platelets (Bld) [#/Vol] 288 10*3/uL 150-450 [facility] No Panel InformationOrdered By: Carlos Cavazos on 07-18-2023 Estimated GFR (MDRD) Amer 113 mL/min >60 [facility] Comment on above: GFR Calc Estimated GFR (MDRD) Non-Af Amer 93 mL/min >60 [facility] Comment on above: Non- GFR Calc RBC Auto (Bld) [#/Vol]Ordere d By: Carlos Cavazos on 07-18-2023 RBC (Bld) [#/Vol] 4.60 10*6/uL 4.6-6.2 [facility] Serum or plasma calcium oral urement (mass/volume)Ordered By: Carlos Cavazos on 07-18-2023 Calcium [Mass/Vol] 8.9 mg/dL 8.5-10.1 [facility] Serum or plasma creatinine m easurement (mass/volume)Ordered By: Carlos Cavazos on 07-18-2023 Creatinine [Mass/Vol] 0.86 mg/dL 0.70-1.30 [facility] Comment on above: The validity of the calculated GFR & GFRAA in patients over 70 years has not been determined. Clinical correlation is essential. Serum or plasma urea nitroge n measurement (mass/volume)Ordered By: Carlos Cavazos on 07-18-2023 Urea nitrogen [Mass/Vol] 21 mg/dL 7-18 [facility] Thin prep Papanicolaou smear with manual screeningOrdered By: Carlos Cavazos on 07-18-2023 Thin prep Papanicolaou smear with manual screening 7 5-15 [facility] Basophil percentageOrdered B y: Carlos Cavazos on 07-17-2023 Basophil percentage 0-5 SEEN /hpf 0-5 [facility] Bilirubin Test strip Ql (U)O rdered By: Carlos Cavazos on 07-17-2023 Bilirubin Ql (U) Negative Negative [facility] Calcium oxalate crystals det ection in urine sediment by light microscopyOrdered By: Carlos Cavazos on 07-17-2023 Calcium oxalate crystals LM Ql (Urine sed) 1+ /hpf [facility] Culture, urineOrdered By: Sharif Crouch on 07-17-2023 Bacteria identified Cx Nom (U) Positive [facility] Ketones Test strip Ql (U)Ord ered By: Carlos Cavazos on 07-17-2023 Ketones Ql (U) Negative Negative [facility] Mucus LM Ql (Urine sed)Order ed By: Carlos Cavazos on 07-17-2023 Mucus Ql (Urine sed) 0 SEEN /hpf [facility] Nitrite Test strip Ql (U)Ord ered By: Carlos Cavazos on 07-17-2023 Nitrite Ql (U) Negative Negative [facility] No Panel InformationOrdered By: Carlos Cavazos on 07-17-2023 Urine RBC 0 SEEN /hpf 0-5 [facility] Protein Test strip Ql (U)Ord ered By: Carlos Cavazos on 07-17-2023 Protein Ql (U) Negative Negative [facility] Squamous epithelial cells de tection in urine sediment by light microscopyOrdered By: Carlos Cavazos on 07-17-2023 Epithelial cells.squamous LM Ql (Urine sed) 0-5 SEEN /hpf 0-5 [facility] Urine blood detectionOrdered By: Carlos Cavazos on 07-17-2023 RBC Ql (U) Negative Negative [facility] Urine clarityOrdered By: Ted Cavazos on 07-17-2023 Clarity (U) Clear Clear [facility] Urine color determinationOrd ered By: Carlos Cavazos on 07-17-2023 Color (U) Yellow Yellow [facility] Urine glucose detectionOrder ed By: Carlos Cavazos on 07-17-2023 Glucose Ql (U) Normal mg/dl Normal [facility] Urine leukocyte esterase det ection by dipstickOrdered By: Carlos Cavazos on 07-17-2023 Leukocyte esterase Test strip Ql (U) 25 /ul Negative [facility] Urine pHOrdered By: Carlos flores on 07-17-2023 pH (U) 6.0 [pH] 5.0 - 8.0 [facility] Urine sediment bacteria coun t by microscopy (number/high power field)Ordered By: Carlos Cavazos on 07-17-2023 Bacteria LM.HPF (Urine sed) [#/Area] 0 /[HPF] None Seen [facility] Urine specific gravity measu rementOrdered By: Carlos Cavazos on 07-17-2023 Specific gravity (U) [Rel density] 1.020 1.002-1.030 [facility] Urine urobilinogen measureme ntOrdered By: Carlos Cavazos on 07-17-2023 Urobilinogen Ql (U) Normal mg/dl Normal [facility] Absolute lymphocyte countOrd ered By: Carlos Cavazos on 07-16-2023 Lymphocytes Auto (Unsp spec) [#/Vol] 6.02 10*3/uL 0.83-4.51 [facility] Automated lymphocyte count a s percentage of total leukocytesOrdered By: Carlos Cavazos on 07-16-2023 Lymphocytes/100 WBC Auto (Unsp spec) 49.1 % 19-41 [facility] Basophil percentageOrdered B y: Carlos Cavazos on 07-16-2023 Basophils/100 WBC (Bld) 0.6 % 0-1 [facility] Chloride [Moles/Vol] 105 mmol/L 98-107 [facility] Eosinophils/100 WBC (Bld) 2.0 % 0-5 [facility] Glucose [Mass/Vol] 93 mg/dL 74-106 [facility] Hemoglobin (Bld) [Mass/Vol] 12.1 g/dL 13.0-16.5 [facility] Monocytes/100 WBC (Bld) 5.3 % 0-10 [facility] Neutrophils (Bld) [#/Vol] 5.2 10*3/uL 2.0-7.7 [facility] Neutrophils/100 WBC (Bld) 42.8 % 47-70 [facility] Potassium [Moles/Vol] 4.3 mmol/L 3.5-5.1 [facility] Sodium [Moles/Vol] 138 mmol/L 136-145 [facility] WBC (Bld) [#/Vol] 12.3 10*3/uL 4.4-11.0 [facility] Blood manual differential co mment interpretation (narrative result)Ordered By: Carlos Cavazos on 07-16-2023 Manual differential comment Shemar (Bld) [Interp] SCANNED [facility] Determination of erythrocyte mean corpuscular volume (MCV)Ordered By: Carlos Cavazos on 07-16-2023 MCV (RBC) [Entitic vol] 86.8 fL 80-94 [facility] Erythrocyte distribution wid th ratioOrdered By: Carlos Cavazos on 07-16-2023 Erythrocyte distribution width (RBC) [Ratio] 15.3 % 11.6-14.6 [facility] Erythrocyte distribution wid th standard deviationOrdered By: Carlos Cavazos on 07-16-2023 Erythrocyte distribution width (RBC) [Entitic vol] 48.9 fL 35.1-43.9 [facility] Hematocrit Auto (Bld) [Volum e fraction]Ordered By: Carlos Cavazos on 07-16-2023 Hematocrit (Bld) [Volume fraction] 38.7 % 40-54 [facility] Immature granulocytes/100 WB C Auto (Bld)Ordered By: Carlos Cavazos on 07-16-2023 Immature granulocytes/100 WBC (Bld) 0.200 % 0.0-0.9 [facility] Comment on above: IG% - Immature Granu locytes (promyelocytes, myelocytes and metamyelocytes) > 1% indicates that a LEFT SHIFT is Present. Laboratory - Chemistry and C hemistry - challengeOrdered By: Carlos Cavazos on 07-16-2023 CO2 [Moles/Vol] 25.0 mmol/L 21.0-32.0 [facility] Urea nitrogen/Creatinine [Mass ratio] 21.0 mg/mg 10-20 [facility] Laboratory - CoagulationOrde red By: Carlos Cavazos on 07-16-2023 INR Coag (Bld) [Relative time] 2.4 {INR} [facility] PT Coag (PPP) [Time] 25.7 s 11.7-14.9 [facility] Laboratory - Hematology and Cell countsOrdered By: Carlos Cavazos on 07-16-2023 MCH (RBC) [Entitic mass] 27.1 pg 27.0-32.0 [facility] MCHC (RBC) [Mass/Vol] 31.3 g/dL 32-36 [facility] Nucleated RBC/100 WBC (Bld) [Ratio] 0 % 0-5 [facility] Platelet mean volume (Bld) [Entitic vol] 10.5 fL 6.2-12.0 [facility] Platelets (Bld) [#/Vol] 289 10*3/uL 150-450 [facility] No Panel InformationOrdered By: Carlos Cavazos on 07-16-2023 Estimated GFR (MDRD) Amer 106 mL/min >60 [facility] Comment on above: GFR Calc Estimated GFR (MDRD) Non-Af Amer 88 mL/min >60 [facility] Comment on above: Non- GFR Calc Reactive Lymphocytes 1+ [facility] RBC Auto (Bld) [#/Vol]Ordere d By: Carlos Cavazos on 07-16-2023 RBC (Bld) [#/Vol] 4.46 10*6/uL 4.6-6.2 [facility] Serum or plasma calcium oral urement (mass/volume)Ordered By: Carlos Cavazos on 07-16-2023 Calcium [Mass/Vol] 9.0 mg/dL 8.5-10.1 [facility] Serum or plasma creatinine m easurement (mass/volume)Ordered By: Carlos Cavazos on 07-16-2023 Creatinine [Mass/Vol] 0.90 mg/dL 0.70-1.30 [facility] Comment on above: The validity of the calculated GFR & GFRAA in patients over 70 years has not been determined. Clinical correlation is essential. Serum or plasma urea nitroge n measurement (mass/volume)Ordered By: Carlos Cavazos on 07-16-2023 Urea nitrogen [Mass/Vol] 19 mg/dL 7-18 [facility] Thin prep Papanicolaou smear with manual screeningOrdered By: Carlos Cavazos on 07-16-2023 Thin prep Papanicolaou smear with manual screening 8 5-15 [facility] Absolute lymphocyte countOrd ered By: Carlos Cavazos on 07-13-2023 Lymphocytes Auto (Unsp spec) [#/Vol] 5.44 10*3/uL 0.83-4.51 [facility] Automated lymphocyte count a s percentage of total leukocytesOrdered By: Carlos Cavazos on 07-13-2023 Lymphocytes/100 WBC Auto (Unsp spec) 47.3 % 19-41 [facility] Basophil percentageOrdered B y: Carlos Cavazos on 07-13-2023 Basophils/100 WBC (Bld) 0.4 % 0-1 [facility] Chloride [Moles/Vol] 107 mmol/L 98-107 [facility] Eosinophils/100 WBC (Bld) 1.7 % 0-5 [facility] Glucose [Mass/Vol] 96 mg/dL 74-106 [facility] Hemoglobin (Bld) [Mass/Vol] 13.5 g/dL 13.0-16.5 [facility] Monocytes/100 WBC (Bld) 4.3 % 0-10 [facility] Neutrophils (Bld) [#/Vol] 5.3 10*3/uL 2.0-7.7 [facility] Neutrophils/100 WBC (Bld) 46.0 % 47-70 [facility] Potassium [Moles/Vol] 4.0 mmol/L 3.5-5.1 [facility] Sodium [Moles/Vol] 139 mmol/L 136-145 [facility] WBC (Bld) [#/Vol] 11.5 10*3/uL 4.4-11.0 [facility] Determination of erythrocyte mean corpuscular volume (MCV)Ordered By: Carlos Cavazos on 07-13-2023 MCV (RBC) [Entitic vol] 86.1 fL 80-94 [facility] Erythrocyte distribution wid th ratioOrdered By: Carlos Cavazos on 07-13-2023 Erythrocyte distribution width (RBC) [Ratio] 15.2 % 11.6-14.6 [facility] Erythrocyte distribution wid th standard deviationOrdered By: Carlos Cavazos on 07-13-2023 Erythrocyte distribution width (RBC) [Entitic vol] 48.0 fL 35.1-43.9 [facility] Hematocrit Auto (Bld) [Volum e fraction]Ordered By: Carlos Cavazos on 07-13-2023 Hematocrit (Bld) [Volume fraction] 42.2 % 40-54 [facility] Immature granulocytes/100 WB C Auto (Bld)Ordered By: Carlos Cavazos on 07-13-2023 Immature granulocytes/100 WBC (Bld) 0.300 % 0.0-0.9 [facility] Comment on above: IG% - Immature Granu locytes (promyelocytes, myelocytes and metamyelocytes) > 1% indicates that a LEFT SHIFT is Present. Laboratory - Chemistry and C hemistry - challengeOrdered By: Carlos Cavazos on 07-13-2023 CO2 [Moles/Vol] 26.0 mmol/L 21.0-32.0 [facility] Urea nitrogen/Creatinine [Mass ratio] 21.8 mg/mg 10-20 [facility] Laboratory - Hematology and Cell countsOrdered By: Carlos Cavazos on 07-13-2023 MCH (RBC) [Entitic mass] 27.6 pg 27.0-32.0 [facility] MCHC (RBC) [Mass/Vol] 32.0 g/dL 32-36 [facility] Nucleated RBC/100 WBC (Bld) [Ratio] 0 % 0-5 [facility] Platelet mean volume (Bld) [Entitic vol] 10.1 fL 6.2-12.0 [facility] Platelets (Bld) [#/Vol] 279 10*3/uL 150-450 [facility] No Panel InformationOrdered By: Carlos Cavazos on 07-13-2023 Estimated GFR (MDRD) Amer 118 mL/min >60 [facility] Comment on above: GFR Calc Estimated GFR (MDRD) Non-Af Amer 98 mL/min >60 [facility] Comment on above: Non- GFR Calc Levetiracetam (Keppra) Level 25.5 ug/mL 10.0-40.0 [facility] Comment on above: Performed at: [address] [id number] Director: Alpesh Vázquez MD, Phone: [phone] RBC Auto (Bld) [#/Vol]Ordere d By: Carlos Cavazos on 07-13-2023 RBC (Bld) [#/Vol] 4.90 10*6/uL 4.6-6.2 [facility] Serum or plasma calcium oral urement (mass/volume)Ordered By: Carlos Cavazos on 07-13-2023 Calcium [Mass/Vol] 9.1 mg/dL 8.5-10.1 [facility] Serum or plasma creatinine m easurement (mass/volume)Ordered By: Carlos Cavazos on 07-13-2023 Creatinine [Mass/Vol] 0.82 mg/dL 0.70-1.30 [facility] Comment on above: The validity of the calculated GFR & GFRAA in patients over 70 years has not been determined. Clinical correlation is essential. Serum or plasma urea nitroge n measurement (mass/volume)Ordered By: Carlos Cavazos on 07-13-2023 Urea nitrogen [Mass/Vol] 18 mg/dL 7-18 [facility] Thin prep Papanicolaou smear with manual screeningOrdered By: Carlos Cavazos on 07-13-2023 Thin prep Papanicolaou smear with manual screening 6 5-15 [facility] No Panel InformationOrdered By: Carlos Cavazos on 07-12-2023 Valproic Acid (Depakene) Level < 3 ug/mL 50-100 [facility] Laboratory - CoagulationOrde red By: Carlos Cavazos on 07-05-2023 INR Coag (Bld) [Relative time] 2.4 {INR} [facility] PT Coag (PPP) [Time] 26.3 s 11.7-14.9 [facility] Laboratory - CoagulationOrde red By: Carlos Cavazos on 07-02-2023 INR Coag (Bld) [Relative time] 1.5 {INR} [facility] PT Coag (PPP) [Time] 18.5 s 11.7-14.9 [facility] Laboratory - CoagulationOrde red By: Carlos Cavazos on 06-28-2023 INR Coag (Bld) [Relative time] 1.7 {INR} [facility] PT Coag (PPP) [Time] 20.5 s 11.7-14.9 [facility] 36on 06-25-2023 36 [facility] called in stating appt scheduled 07/10/23 [place] has to be made further out, pt being transported by cot. Changed appt to 08/13/23 per [facility] only avail time for transport, first avail with DR Buck at 10:00 AM. [facility] Laboratory - CoagulationOrde red By: Carlos Cavazos on 06-25-2023 INR Coag (Bld) [Relative time] 3.8 {INR} [facility] PT Coag (PPP) [Time] 38.2 s 11.7-14.9 [facility] Laboratory - CoagulationOrde red By: Carlos Cavazos on 06-21-2023 INR Coag (Bld) [Relative time] 3.2 {INR} [facility] PT Coag (PPP) [Time] 32.9 s 11.7-14.9 [facility] No Panel InformationOrdered By: Carlos Cavazos on 06-13-2023 Valproic Acid (Depakene) Level < 3 ug/mL 50-100 [facility] - CoagulationOrde red By: Carlos Cavazos on 06-06-2023 PT Coag (PPP) [Time] 30.5 s 11.7-14.9 [facility] Platelet poor plasma interna tional normalized ratio (INR)Ordered By: Carlos Cavazos on 06-06-2023 INR Coag (PPP) [Relative time] 2.9 {INR} [facility] International normalized rat io (INR) calculationOrdered By: Carlos Cavazos on 05-23-2023 INR Coag (PPP) [Relative time] 2.6 {INR} [facility] Laboratory - CoagulationOrde red By: Carlos Cavazos on 05-23-2023 PT Coag (PPP) [Time] 27.7 s 11.7-14.9 [facility] Laboratory - CoagulationOrde red By: Carlos Cavazos on 05-09-2023 PT Coag (PPP) [Time] 24.1 s 11.7-14.9 [facility] Whole blood international no rmalized ratio (INR)Ordered By: Carlos Cavazos on 05-09-2023 INR Coag (Bld) [Relative time] 2.1 {INR} [facility] - CoagulationOrde red By: Carlos Cavazos on 04-23-2023 PT Coag (PPP) [Time] 26.4 s 11.7-14.9 [facility] Whole blood international no rmalized ratio (INR)Ordered By: Carlos Cavazos on 04-23-2023 INR Coag (Bld) [Relative time] 2.4 {INR} [facility] INR in Blood by Coagulation assayOrdered By: Carlos Cavazos on 04-09-2023 INR Coag (Bld) [Relative time] 2.1 {INR} [facility] - CoagulationOrde red By: Carlos Cavazos on 04-09-2023 PT Coag (PPP) [Time] 23.9 s 11.7-14.9 [facility] INR in Blood by Coagulation assayOrdered By: Carlos Cavazos on 04-02-2023 INR Coag (Bld) [Relative time] 2.2 {INR} [facility] - CoagulationOrde red By: Carlos Cavazos on 04-02-2023 PT Coag (PPP) [Time] 24.5 s 11.7-14.9 [facility] INR in Blood by Coagulation assayOrdered By: Carlos Cavazos on 03-26-2023 INR Coag (Bld) [Relative time] 1.7 {INR} [facility] - CoagulationOrde red By: Carlos Cavazos on 03-26-2023 PT Coag (PPP) [Time] 19.9 s 11.7-14.9 [facility] INR in Blood by Coagulation assayOrdered By: Carlos Cavazos on 03-22-2023 INR Coag (Bld) [Relative time] 1.3 {INR} [facility] Laboratory - CoagulationOrde red By: Carlos Cavazos on 03-22-2023 PT Coag (PPP) [Time] 16.4 s 11.7-14.9 [facility] INR in Blood by Coagulation assayOrdered By: Carlos Cavazos on 03-08-2023 INR Coag (Bld) [Relative time] 2.0 {INR} [facility] - CoagulationOrde red By: Carlos Cavazos on 03-08-2023 PT Coag (PPP) [Time] 22.5 s 11.7-14.9 [facility] Laboratory - CoagulationOrde red By: Carlos Cavazos on 02-22-2023 INR Coag (Bld) [Relative time] 2.2 {INR} [facility] Comment on above: Critical Value > 4.0 Whole blood prothrombin time Ordered By: Carlos Cavazos on 02-22-2023 PT Coag (Bld) [Time] 24.0 s 11.7-14.9 [facility] INR in Blood by Coagulation assayOrdered By: Cliff Bruner on 02-15-2023 INR Coag (Bld) [Relative time] 2.0 {INR} [facility] Laboratory - CoagulationOrde red By: Cliff Bruner on 02-15-2023 PT Coag (PPP) [Time] 22.8 s 11.7-14.9 [facility] INR in Blood by Coagulation assayOrdered By: Carlos Cavazos on 02-08-2023 INR Coag (Bld) [Relative time] 2.1 {INR} [facility] Laboratory - CoagulationOrde red By: Carlos Cavazos on 02-08-2023 PT Coag (PPP) [Time] 23.5 s 11.7-14.9 [facility] INR in Blood by Coagulation assayOrdered By: Carlos Cavazos on 01-31-2023 INR Coag (Bld) [Relative time] 2.0 {INR} [facility] Laboratory - CoagulationOrde red By: Carlos Cavazos on 01-31-2023 PT Coag (PPP) [Time] 22.4 s 11.7-14.9 [facility] Laboratory - CoagulationOrde red By: Carlos Cavazos on 01-29-2023 INR Coag (Bld) [Relative time] 1.8 {INR} [facility] Comment on above: Critical Value > 4.0 Whole blood prothrombin time Ordered By: Carlos Cavazos on 01-29-2023 PT Coag (Bld) [Time] 19.9 s 11.7-14.9 [facility] INR in Blood by Coagulation assayOrdered By: Carlos Cavazos on 01-26-2023 INR Coag (Bld) [Relative time] 1.5 {INR} [facility] Laboratory - CoagulationOrde red By: Carlos Cavazos on 01-26-2023 PT Coag (PPP) [Time] 18.3 s 11.7-14.9 [facility] INR in Blood by Coagulation assayOrdered By: Carlos Cavazos on 01-24-2023 INR Coag (Bld) [Relative time] 1.3 {INR} [facility] Laboratory - CoagulationOrde red By: Carlos Cavazos on 01-24-2023 PT Coag (PPP) [Time] 16.2 s 11.7-14.9 [facility] Basophil percentageOrdered B y: Carlos Cavazos on 01-22-2023 Basophil percentage 0 SEEN /hpf 0-5 [facility] Bilirubin Test strip Ql (U)O rdered By: Carlos Cavazos on 01-22-2023 Bilirubin Ql (U) Negative Negative [facility] Calcium oxalate crystals det ection in urine sediment by light microscopyOrdered By: Carlos Cavazos on 01-22-2023 Calcium oxalate crystals LM Ql (Urine sed) 1+ /hpf [facility] Culture, urineOrdered By: Sharif Crouch on 01-22-2023 Bacteria identified Cx Nom (U) Positive [facility] Ketones Test strip Ql (U)Ord ered By: Carlos Cavazos on 01-22-2023 Ketones Ql (U) Negative Negative [facility] Mucus LM Ql (Urine sed)Order ed By: Carlos Cavazos on 01-22-2023 Mucus Ql (Urine sed) 1+ /hpf [facility] Nitrite Test strip Ql (U)Ord ered By: Carlos Cavazos on 01-22-2023 Nitrite Ql (U) Negative Negative [facility] Protein Test strip Ql (U)Ord ered By: Carlos Cavazos on 01-22-2023 Protein Ql (U) Negative Negative [facility] Squamous epithelial cells de tection in urine sediment by light microscopyOrdered By: Carlos Cavazos on 01-22-2023 Epithelial cells.squamous LM Ql (Urine sed) 0 SEEN /hpf 0-5 [facility] Urine blood detectionOrdered By: Carlos Cavazos on 01-22-2023 RBC Ql (U) Negative Negative [facility] RBC Ql (U) 0 SEEN /hpf 0-5 [facility] Urine clarityOrdered By: Ted Cavazos on 01-22-2023 Clarity (U) Sl. Cloudy Clear [facility] Urine color determinationOrd ered By: Carlos Cavazos on 01-22-2023 Color (U) Yellow Yellow [facility] Urine glucose detectionOrder ed By: Carlos Cavazos on 01-22-2023 Glucose Ql (U) Normal mg/dl Normal [facility] Urine leukocyte esterase det ection by dipstickOrdered By: Carlos Cavazos on 01-22-2023 Leukocyte esterase Test strip Ql (U) Negative Negative [facility] Urine pHOrdered By: Carlos flores on 01-22-2023 pH (U) 5.0 [pH] 5.0 - 8.0 [facility] Urine sediment bacteria coun t by microscopy (number/high power field)Ordered By: Carlos Cavazos on 01-22-2023 Bacteria LM.HPF (Urine sed) [#/Area] 2 /[HPF] None Seen [facility] Urine specific gravity measu rementOrdered By: Carlos Cavazos on 01-22-2023 Specific gravity (U) [Rel density] 1.025 1.002-1.030 [facility] Urobilinogen Auto test strip Ql (U)Ordered By: Carlos Cavazos on 01-22-2023 Urobilinogen Ql (U) Normal mg/dl Normal [facility] INR in Blood by Coagulation assayOrdered By: Carlos Cavazos on 01-10-2023 INR Coag (Bld) [Relative time] 2.0 {INR} [facility] - CoagulationOrde red By: Carlos Cavazos on 01-10-2023 PT Coag (PPP) [Time] 22.6 s 11.7-14.9 [facility] INR in Blood by Coagulation assayOrdered By: Carlos Cavazos on 12-27-2022 INR Coag (Bld) [Relative time] 2.1 {INR} [facility] - CoagulationOrde red By: Carlos Cavazos on 12-27-2022 PT Coag (PPP) [Time] 24.1 s 11.7-14.9 [facility] INR in Blood by Coagulation assayOrdered By: Carlos Cavazos on 12-21-2022 INR Coag (Bld) [Relative time] 2.4 {INR} [facility] - CoagulationOrde red By: Carlos Cavazos on 12-21-2022 PT Coag (PPP) [Time] 26.7 s 11.7-14.9 [facility] - CoagulationOrde red By: Carlos Cavazos on 12-14-2022 INR Coag (Bld) [Relative time] 2.3 {INR} [facility] Comment on above: Critical Value > 4.0 Whole blood prothrombin time Ordered By: Carlos Cavazos on 12-14-2022 PT Coag (Bld) [Time] 25.2 s 11.7-14.9 [facility] - CoagulationOrde red By: Carlos Cavazos on 12-07-2022 INR Coag (Bld) [Relative time] 2.5 {INR} [facility] Comment on above: Critical Value > 4.0 Whole blood prothrombin time Ordered By: Carlos Cavazos on 12-07-2022 PT Coag (Bld) [Time] 26.9 s 11.7-14.9 [facility] Amorphous sediment detection in urine sediment by light microscopyOrdered By: Carlos Cavazos on 11-24-2022 Amorphous sediment LM Ql (Urine sed) 1+ [facility] Basophil percentageOrdered B y: Carlos Cavazos on 11-24-2022 Basophil percentage 0 SEEN /hpf 0-5 [facility] Bilirubin [Mass/Vol] 0.30 mg/dL 0.20-1.00 [facility] Comment on above: For patients on eltr ombopag therapy, use of Dimension [place] TBIL is not recommended. Chloride [Moles/Vol] 107 mmol/L 98-107 [facility] Glucose [Mass/Vol] 95 mg/dL 74-106 [facility] Potassium [Moles/Vol] 4.2 mmol/L 3.5-5.1 [facility] Protein [Mass/Vol] 6.9 g/dL 6.4-8.2 [facility] Sodium [Moles/Vol] 138 mmol/L 136-145 [facility] WBC (Bld) [#/Vol] 10.4 10*3/uL 4.4-11.0 [facility] Bilirubin Test strip Ql (U)O rdered By: Carlos Cavazos on 11-24-2022 Bilirubin Ql (U) Negative Negative [facility] Blood erythrocytes count (nu mber/volume)Ordered By: Carlos Cavazos on 11-24-2022 RBC (Bld) [#/Vol] 4.44 10*6/uL 4.6-6.2 [facility] Blood hemoglobin measurement (mass/volume)Ordered By: Carlos Cavazos on 11-24-2022 Hemoglobin (Bld) [Mass/Vol] 11.8 g/dL 13.0-16.5 [facility] Blood platelet mean volumeOr dered By: Carlos Cavazos on 11-24-2022 Platelet mean volume (Bld) [Entitic vol] 9.7 fL 6.2-12.0 [facility] Calcium oxalate crystals det ection in urine sediment by light microscopyOrdered By: Carlos Cavazos on 11-24-2022 Calcium oxalate crystals LM Ql (Urine sed) RARE /hpf [facility] Culture, urineOrdered By: Sharif Crouch on 11-24-2022 Bacteria identified Cx Nom (U) Positive [facility] Determination of erythrocyte mean corpuscular volume (MCV)Ordered By: Carlos Cavazos on 11-24-2022 MCV (RBC) [Entitic vol] 84.7 fL 80-94 [facility] Hematocrit Auto (Bld) [Volum e fraction]Ordered By: Carlos Cavazos on 11-24-2022 Hematocrit (Bld) [Volume fraction] 37.6 % 40-54 [facility] Ketones Test strip Ql (U)Ord ered By: Carlos Cavazos on 11-24-2022 Ketones Ql (U) Negative Negative [facility] Laboratory - Chemistry and C hemistry - challengeOrdered By: Carlos Cavazos on 11-24-2022 ALP [Catalytic activity/Vol] 103 U/L 45-117 [facility] ALT [Catalytic activity/Vol] 14 U/L 16-61 [facility] CO2 [Moles/Vol] 26.0 mmol/L 21.0-32.0 [facility] Globulin (S) [Mass/Vol] 4.0 g/dL 2.2-4.2 [facility] Urea nitrogen/Creatinine [Mass ratio] 24.1 mg/mg 10-20 [facility] - Hematology and Cell countsOrdered By: Carlos Cavazos on 11-24-2022 Erythrocyte distribution width (RBC) [Entitic vol] 49.4 fL 35.1-43.9 [facility] Erythrocyte distribution width (RBC) [Ratio] 16.0 % 11.6-14.6 [facility] MCH (RBC) [Entitic mass] 26.6 pg 27.0-32.0 [facility] MCHC Auto (RBC) [Mass/Vol]Or dered By: Carlos Cavazos on 11-24-2022 MCHC (RBC) [Mass/Vol] 31.4 g/dL 32-36 [facility] Mucus LM Ql (Urine sed)Order ed By: Carlos Cavazos on 11-24-2022 Mucus Ql (Urine sed) 0 SEEN /hpf [facility] Nitrite Test strip Ql (U)Ord ered By: Carlos Cavazos on 11-24-2022 Nitrite Ql (U) Negative Negative [facility] No Panel InformationOrdered By: Carlos Cavazos on 11-24-2022 Estimated GFR (MDRD) Amer 118 mL/min >60 [facility] Comment on above: GFR Calc Estimated GFR (MDRD) Non-Af Amer 97 mL/min >60 [facility] Comment on above: Non- GFR Calc Platelets bldOrdered By: Ted Cavazos on 11-24-2022 Platelets (Bld) [#/Vol] 309 10*3/uL 150-450 [facility] Protein Test strip Ql (U)Ord ered By: Carlos Cavazos on 11-24-2022 Protein Ql (U) Negative Negative [facility] Serum or plasma albumin oral urement (mass/volume)Ordered By: Carlos Cavazos on 11-24-2022 Albumin [Mass/Vol] 2.9 g/dL 3.2-5.0 [facility] Serum or plasma albumin/glob ulin mass ratioOrdered By: Carlos Cavazos on 11-24-2022 Albumin/Globulin [Mass ratio] 0.7 {ratio} 0.9-2.4 [facility] Serum or plasma calcium oral urement (mass/volume)Ordered By: Carlos Cavazos on 11-24-2022 Calcium [Mass/Vol] 8.7 mg/dL 8.5-10.1 [facility] Serum or plasma creatinine m easurement (mass/volume)Ordered By: Carlos Cavazos on 11-24-2022 Creatinine [Mass/Vol] 0.83 mg/dL 0.70-1.30 [facility] Comment on above: The validity of the calculated GFR & GFRAA in patients over 70 years has not been determined. Clinical correlation is essential. Serum or plasma urea nitroge n measurement (mass/volume)Ordered By: Carlos Cavazos on 11-24-2022 Urea nitrogen [Mass/Vol] 20 mg/dL 7-18 [facility] Squamous epithelial cells de tection in urine sediment by light microscopyOrdered By: Carlos Cavazos on 11-24-2022 Epithelial cells.squamous LM Ql (Urine sed) 0 SEEN /hpf 0-5 [facility] Thin prep Papanicolaou smear with manual screeningOrdered By: Carlos Cavazos on 11-24-2022 Thin prep Papanicolaou smear with manual screening 10 U/L 15-37 [facility] Thin prep Papanicolaou smear with manual screening 5 5-15 [facility] Urine blood detectionOrdered By: Calros Cavazos on 11-24-2022 RBC Ql (U) Negative Negative [facility] RBC Ql (U) 0 SEEN /hpf 0-5 [facility] Urine clarityOrdered By: Ted Cavazos on 11-24-2022 Clarity (U) Clear Clear [facility] Urine color determinationOrd ered By: Carlos Cavazos on 11-24-2022 Color (U) Yellow Yellow [facility] Urine glucose detectionOrder ed By: Carlos Cavazos on 11-24-2022 Glucose Ql (U) Normal mg/dl Normal [facility] Urine leukocyte esterase det ection by dipstickOrdered By: Carlos Cavazos on 11-24-2022 Leukocyte esterase Test strip Ql (U) Negative Negative [facility] Urine pHOrdered By: Carlos flores on 11-24-2022 pH (U) 7.0 [pH] 5.0 - 8.0 [facility] Urine sediment bacteria coun t by microscopy (number/high power field)Ordered By: Carlos Cavazos on 11-24-2022 Bacteria LM.HPF (Urine sed) [#/Area] 0 /[HPF] None Seen [facility] Urine specific gravity measu rementOrdered By: Carlos Cavazos on 11-24-2022 Specific gravity (U) [Rel density] 1.010 1.002-1.030 [facility] Urobilinogen Auto test strip Ql (U)Ordered By: Carlos Cavazos on 11-24-2022 Urobilinogen Ql (U) Normal mg/dl Normal [facility] Laboratory - CoagulationOrde red By: Carlos Cavazos on 11-23-2022 INR Coag (Bld) [Relative time] 2.2 {INR} [facility] Comment on above: Critical Value > 4.0 Whole blood prothrombin time Ordered By: Carlos Cavazos on 11-23-2022 PT Coag (Bld) [Time] 24.5 s 11.7-14.9 [facility] Basophil percentageOrdered B y: Carlos Cavazos on 11-22-2022 Chloride [Moles/Vol] 105 mmol/L 98-107 [facility] Glucose [Mass/Vol] 91 mg/dL 74-106 [facility] Potassium [Moles/Vol] 4.1 mmol/L 3.5-5.1 [facility] Sodium [Moles/Vol] 138 mmol/L 136-145 [facility] WBC (Bld) [#/Vol] 12.0 10*3/uL 4.4-11.0 [facility] Blood erythrocytes count (nu mber/volume)Ordered By: Carlos Cavazos on 11-22-2022 RBC (Bld) [#/Vol] 4.65 10*6/uL 4.6-6.2 [facility] Blood hemoglobin measurement (mass/volume)Ordered By: Carlos Cavazos on 11-22-2022 Hemoglobin (Bld) [Mass/Vol] 12.4 g/dL 13.0-16.5 [facility] Blood platelet mean volumeOr dered By: Carlos Cavazos on 11-22-2022 Platelet mean volume (Bld) [Entitic vol] 10.3 fL 6.2-12.0 [facility] Determination of erythrocyte mean corpuscular volume (MCV)Ordered By: Carlos Cavazos on 11-22-2022 MCV (RBC) [Entitic vol] 86.0 fL 80-94 [facility] Hematocrit Auto (Bld) [Volum e fraction]Ordered By: Carlos Cavazos on 11-22-2022 Hematocrit (Bld) [Volume fraction] 40.0 % 40-54 [facility] - Chemistry and C hemistry - challengeOrdered By: Carlos Cavazos on 11-22-2022 CO2 [Moles/Vol] 25.0 mmol/L 21.0-32.0 [facility] Urea nitrogen/Creatinine [Mass ratio] 23.6 mg/mg 10-20 [facility] - Hematology and Cell countsOrdered By: Carlos Cavazos on 11-22-2022 Erythrocyte distribution width (RBC) [Entitic vol] 50.0 fL 35.1-43.9 [facility] Erythrocyte distribution width (RBC) [Ratio] 15.9 % 11.6-14.6 [facility] MCH (RBC) [Entitic mass] 26.7 pg 27.0-32.0 [facility] MCHC Auto (RBC) [Mass/Vol]Or dered By: Carlos Cavazos on 11-22-2022 MCHC (RBC) [Mass/Vol] 31.0 g/dL 32-36 [facility] No Panel InformationOrdered By: Carlos Cavazos on 11-22-2022 Estimated GFR (MDRD) Amer 115 mL/min >60 [facility] Comment on above: GFR Calc Estimated GFR (MDRD) Non-Af Amer 95 mL/min >60 [facility] Comment on above: Non- GFR Calc Platelets bldOrdered By: Pet er Kenny on 11-22-2022 Platelets (Bld) [#/Vol] 320 10*3/uL 150-450 [facility] Serum or plasma calcium oral urement (mass/volume)Ordered By: Carlos Cavazos on 11-22-2022 Calcium [Mass/Vol] 8.7 mg/dL 8.5-10.1 [facility] Serum or plasma creatinine m easurement (mass/volume)Ordered By: Carlos Cavazos on 11-22-2022 Creatinine [Mass/Vol] 0.85 mg/dL 0.70-1.30 [facility] Comment on above: The validity of the calculated GFR & GFRAA in patients over 70 years has not been determined. Clinical correlation is essential. Serum or plasma urea nitroge n measurement (mass/volume)Ordered By: Carlos Cavazos on 11-22-2022 Urea nitrogen [Mass/Vol] 20 mg/dL 7-18 [facility] Thin prep Papanicolaou smear with manual screeningOrdered By: Carlos Cavazos on 11-22-2022 Thin prep Papanicolaou smear with manual screening 8 5-15 [facility] - CoagulationOrde red By: Carlos Cavazos on 11-09-2022 INR Coag (Bld) [Relative time] 2.1 {INR} [facility] Comment on above: Critical Value > 4.0 Whole blood prothrombin time Ordered By: Carlos Cavazos on 11-09-2022 PT Coag (Bld) [Time] 22.6 s 11.7-14.9 [facility] - CoagulationOrde red By: Carlos Cavazos on 10-26-2022 INR Coag (Bld) [Relative time] 2.6 {INR} [facility] Comment on above: Critical Value > 4.0 Whole blood prothrombin time Ordered By: Carlos Cavazos on 10-26-2022 PT Coag (Bld) [Time] 28.5 s 11.7-14.9 [facility] - CoagulationOrde red By: Carlos Cavazos on 10-12-2022 INR Coag (Bld) [Relative time] 2.4 {INR} [facility] Comment on above: Critical Value > 4.0 Whole blood prothrombin time Ordered By: Carlos Cavazos on 10-12-2022 PT Coag (Bld) [Time] 26.4 s 11.7-14.9 [facility] - CoagulationOrde red By: Carlos Cavazos on 10-05-2022 INR Coag (Bld) [Relative time] 2.6 {INR} [facility] Comment on above: Critical Value > 4.0 Whole blood prothrombin time Ordered By: Carlos Cavazos on 10-05-2022 PT Coag (Bld) [Time] 28.0 s 11.7-14.9 [facility] - CoagulationOrde red By: Carlos Cavazos on 09-28-2022 INR Coag (Bld) [Relative time] 2.7 {INR} [facility] Comment on above: Critical Value > 4.0 Whole blood prothrombin time Ordered By: Carlos Cavazos on 09-28-2022 PT Coag (Bld) [Time] 28.9 s 11.7-14.9 [facility] - CoagulationOrde red By: Carlos Cavazos on 09-14-2022 INR Coag (Bld) [Relative time] 2.5 {INR} [facility] Comment on above: Critical Value > 4.0 Whole blood prothrombin time Ordered By: Carlos Cavazos on 09-14-2022 PT Coag (Bld) [Time] 27.4 s 11.7-14.9 [facility] - CoagulationOrde red By: Carlos Cavazos on 08-31-2022 INR Coag (Bld) [Relative time] 2.3 {INR} [facility] Comment on above: Critical Value > 4.0 Whole blood prothrombin time Ordered By: Carlos Cavazos on 08-31-2022 PT Coag (Bld) [Time] 25.4 s 11.7-14.9 [facility] Basophil percentageOrdered B y: Carlos Cavazos on 08-23-2022 Chloride [Moles/Vol] 108 mmol/L 98-107 [facility] Glucose [Mass/Vol] 86 mg/dL 74-106 [facility] Potassium [Moles/Vol] 4.3 mmol/L 3.5-5.1 [facility] Sodium [Moles/Vol] 136 mmol/L 136-145 [facility] WBC (Bld) [#/Vol] 10.0 10*3/uL 4.4-11.0 [facility] Blood erythrocytes count (nu mber/volume)Ordered By: Carlos Cavazos on 08-23-2022 RBC (Bld) [#/Vol] 4.77 10*6/uL 4.6-6.2 [facility] Blood hemoglobin measurement (mass/volume)Ordered By: Carlos Cavazos on 08-23-2022 Hemoglobin (Bld) [Mass/Vol] 12.5 g/dL 13.0-16.5 [facility] Blood platelet mean volumeOr dered By: Carlos Cavazos on 08-23-2022 Platelet mean volume (Bld) [Entitic vol] 11.0 fL 6.2-12.0 [facility] Determination of erythrocyte mean corpuscular volume (MCV)Ordered By: Carlos Cavazos on 08-23-2022 MCV (RBC) [Entitic vol] 84.3 fL 80-94 [facility] Hematocrit Auto (Bld) [Volum e fraction]Ordered By: Carlos Cavazos on 08-23-2022 Hematocrit (Bld) [Volume fraction] 40.2 % 40-54 [facility] - Chemistry and C hemistry - challengeOrdered By: Carlos Cavazos on 08-23-2022 CO2 [Moles/Vol] 24.0 mmol/L 21.0-32.0 [facility] Urea nitrogen/Creatinine [Mass ratio] 22.8 mg/mg 10-20 [facility] - Hematology and Cell countsOrdered By: Carlos Cavazos on 08-23-2022 Erythrocyte distribution width (RBC) [Entitic vol] 49.3 fL 35.1-43.9 [facility] Erythrocyte distribution width (RBC) [Ratio] 16.0 % 11.6-14.6 [facility] MCH (RBC) [Entitic mass] 26.2 pg 27.0-32.0 [facility] MCHC Auto (RBC) [Mass/Vol]Or dered By: Carlos Cavazos on 08-23-2022 MCHC (RBC) [Mass/Vol] 31.1 g/dL 32-36 [facility] No Panel InformationOrdered By: Carlos Cavazos on 08-23-2022 Estimated GFR (MDRD) Amer 134 mL/min >60 [facility] Comment on above: GFR Calc Estimated GFR (MDRD) Non-Af Amer 110 mL/min >60 [facility] Comment on above: Non- GFR Calc Platelets bldOrdered By: Ted Cavazos on 08-23-2022 Platelets (Bld) [#/Vol] 268 10*3/uL 150-450 [facility] Serum or plasma calcium oral urement (mass/volume)Ordered By: Carlos Cavazos on 08-23-2022 Calcium [Mass/Vol] 9.1 mg/dL 8.5-10.1 [facility] Serum or plasma creatinine m easurement (mass/volume)Ordered By: Carlos Cavazos on 08-23-2022 Creatinine [Mass/Vol] 0.74 mg/dL 0.70-1.30 [facility] Comment on above: The validity of the calculated GFR & GFRAA in patients over 70 years has not been determined. Clinical correlation is essential. Serum or plasma urea nitroge n measurement (mass/volume)Ordered By: Carlos Cavazos on 08-23-2022 Urea nitrogen [Mass/Vol] 17 mg/dL 7-18 [facility] Thin prep Papanicolaou smear with manual screeningOrdered By: Carlos Cavazos on 08-23-2022 Thin prep Papanicolaou smear with manual screening 4 5-15 [facility] - CoagulationOrde red By: Carlos Cavazos on 08-17-2022 INR Coag (Bld) [Relative time] 2.8 {INR} [facility] Comment on above: Critical Value > 4.0 Whole blood prothrombin time Ordered By: Carlos Cavazos on 08-17-2022 PT Coag (Bld) [Time] 29.6 s 11.7-14.9 [facility] - CoagulationOrde red By: Carlos Cavazos on 08-14-2022 INR Coag (Bld) [Relative time] 3.9 {INR} [facility] Comment on above: Critical Value > 4.0 Whole blood prothrombin time Ordered By: Carlos Cavazos on 08-14-2022 PT Coag (Bld) [Time] 40.6 s 11.7-14.9 [facility] - CoagulationOrde red By: Carlos Cavazos on 07-31-2022 INR Coag (Bld) [Relative time] 2.5 {INR} [facility] Comment on above: Critical Value > 4.0 Whole blood prothrombin time Ordered By: Carlos Cavazos on 07-31-2022 PT Coag (Bld) [Time] 26.8 s 11.7-14.9 [facility] INR in Blood by Coagulation assayOrdered By: Carlos Cavazos on 07-24-2022 INR Coag (Bld) [Relative time] 2.3 {INR} [facility] - CoagulationOrde red By: Carlos Cavazos on 07-24-2022 PT Coag (PPP) [Time] 24.7 s 11.7-14.9 [facility] - CoagulationOrde red By: Carlos Cavazos on 07-20-2022 INR Coag (Bld) [Relative time] 1.9 {INR} [facility] Comment on above: Critical Value > 4.0 Whole blood prothrombin time Ordered By: Carlos Cavazos on 07-20-2022 PT Coag (Bld) [Time] 20.6 s 11.7-14.9 [facility] - CoagulationOrde red By: Carlos Cavazos on 07-17-2022 INR Coag (Bld) [Relative time] 1.3 {INR} [facility] Comment on above: Critical Value > 4.0 Whole blood prothrombin time Ordered By: Carlos Cavazos on 07-17-2022 PT Coag (Bld) [Time] 15.9 s 11.7-14.9 [facility] Basophil percentageOrdered B y: Carlos Cavazos on 07-11-2022 Chloride [Moles/Vol] 105 mmol/L 98-107 [facility] Glucose [Mass/Vol] 97 mg/dL 74-106 [facility] Potassium [Moles/Vol] 3.9 mmol/L 3.5-5.1 [facility] Sodium [Moles/Vol] 140 mmol/L 136-145 [facility] WBC (Bld) [#/Vol] 9.4 10*3/uL 4.4-11.0 [facility] Blood erythrocytes count (nu mber/volume)Ordered By: Carlos Cavazos on 07-11-2022 RBC (Bld) [#/Vol] 4.66 10*6/uL 4.6-6.2 [facility] Blood hemoglobin measurement (mass/volume)Ordered By: Carlos Cavazos on 07-11-2022 Hemoglobin (Bld) [Mass/Vol] 12.0 g/dL 13.0-16.5 [facility] Blood platelet mean volumeOr dered By: Carlos Cavazos on 07-11-2022 Platelet mean volume (Bld) [Entitic vol] 10.4 fL 6.2-12.0 [facility] Determination of erythrocyte mean corpuscular volume (MCV)Ordered By: Carlos Cavazos on 07-11-2022 MCV (RBC) [Entitic vol] 83.7 fL 80-94 [facility] Hematocrit Auto (Bld) [Volum e fraction]Ordered By: Carlos Cavazos on 07-11-2022 Hematocrit (Bld) [Volume fraction] 39.0 % 40-54 [facility] - Chemistry and C hemistry - challengeOrdered By: Carlos Cavazos on 07-11-2022 CO2 [Moles/Vol] 28.0 mmol/L 21.0-32.0 [facility] Urea nitrogen/Creatinine [Mass ratio] 23.0 mg/mg 10-20 [facility] - Hematology and Cell countsOrdered By: Carlos Cavazos on 07-11-2022 Erythrocyte distribution width (RBC) [Entitic vol] 51.0 fL 35.1-43.9 [facility] Erythrocyte distribution width (RBC) [Ratio] 16.8 % 11.6-14.6 [facility] MCH (RBC) [Entitic mass] 25.8 pg 27.0-32.0 [facility] MCHC Auto (RBC) [Mass/Vol]Or dered By: Carlos Cavazos on 07-11-2022 MCHC (RBC) [Mass/Vol] 30.8 g/dL 32-36 [facility] No Panel InformationOrdered By: Carlos Cavazos on 07-11-2022 Estimated GFR (MDRD) Amer 126 mL/min >60 [facility] Comment on above: GFR Calc Estimated GFR (MDRD) Non-Af Amer 104 mL/min >60 [facility] Comment on above: Non- GFR Calc Platelets bldOrdered By: Ted Cavazos on 07-11-2022 Platelets (Bld) [#/Vol] 291 10*3/uL 150-450 [facility] Serum or plasma calcium oral urement (mass/volume)Ordered By: Carlos Cavazos on 07-11-2022 Calcium [Mass/Vol] 9.2 mg/dL 8.5-10.1 [facility] Serum or plasma creatinine m easurement (mass/volume)Ordered By: Carlos Cavazos on 07-11-2022 Creatinine [Mass/Vol] 0.78 mg/dL 0.70-1.30 [facility] Comment on above: The validity of the calculated GFR & GFRAA in patients over 70 years has not been determined. Clinical correlation is essential. Serum or plasma urea nitroge n measurement (mass/volume)Ordered By: Carlos Cavazos on 07-11-2022 Urea nitrogen [Mass/Vol] 18 mg/dL 7-18 [facility] Thin prep Papanicolaou smear with manual screeningOrdered By: Carlos Cavazos on 07-11-2022 Thin prep Papanicolaou smear with manual screening 7 5-15 [facility] - CoagulationOrde red By: Carlos Cavazos on 07-10-2022 INR Coag (Bld) [Relative time] 1.8 {INR} [facility] Comment on above: Critical Value > 4.0 Whole blood prothrombin time Ordered By: Carlos Cavazos on 07-10-2022 PT Coag (Bld) [Time] 21.0 s 11.7-14.9 [facility] - CoagulationOrde red By: Carlos Cavazos on 07-03-2022 INR Coag (Bld) [Relative time] 1.9 {INR} [facility] Comment on above: Critical Value > 4.0 Whole blood prothrombin time Ordered By: Carlos Cavazos on 07-03-2022 PT Coag (Bld) [Time] 22.7 s 11.7-14.9 [facility] INR in Blood by Coagulation assayOrdered By: Carlos Cavazos on 06-27-2022 INR Coag (Bld) [Relative time] 2.9 {INR} [facility] - CoagulationOrde red By: Carlos Cavazos on 06-27-2022 PT Coag (PPP) [Time] 29.9 s 11.7-14.9 [facility] - CoagulationOrde red By: Carlos Cavazos on 06-13-2022 INR Coag (Bld) [Relative time] 2.1 {INR} [facility] Comment on above: Critical Value > 4.0 Whole blood prothrombin time Ordered By: Carlos Cavazos on 06-13-2022 PT Coag (Bld) [Time] 24.4 s 11.7-14.9 [facility] - CoagulationOrde red By: Carlos Cavazos on 06-06-2022 INR Coag (Bld) [Relative time] 1.5 {INR} [facility] Comment on above: Critical Value > 4.0 Whole blood prothrombin time Ordered By: Carlos Cavazos on 06-06-2022 PT Coag (Bld) [Time] 18.4 s 11.7-14.9 [facility] Basophil percentageOrdered B y: Carlos Cavazos on 05-30-2022 Chloride [Moles/Vol] 105 mmol/L 98-107 [facility] Glucose [Mass/Vol] 95 mg/dL 74-106 [facility] Potassium [Moles/Vol] 3.9 mmol/L 3.5-5.1 [facility] Sodium [Moles/Vol] 140 mmol/L 136-145 [facility] WBC (Bld) [#/Vol] 7.6 10*3/uL 4.4-11.0 [facility] Blood erythrocytes count (nu mber/volume)Ordered By: Carlos Cavazos on 05-30-2022 RBC (Bld) [#/Vol] 4.79 10*6/uL 4.6-6.2 [facility] Blood hemoglobin measurement (mass/volume)Ordered By: Carlos Cavazos on 05-30-2022 Hemoglobin (Bld) [Mass/Vol] 12.1 g/dL 13.0-16.5 [facility] Blood platelet mean volumeOr dered By: Carlos Cavazos on 05-30-2022 Platelet mean volume (Bld) [Entitic vol] 10.4 fL 6.2-12.0 [facility] Determination of erythrocyte mean corpuscular volume (MCV)Ordered By: Carlos Cavazos on 05-30-2022 MCV (RBC) [Entitic vol] 82.5 fL 80-94 [facility] Hematocrit Auto (Bld) [Volum e fraction]Ordered By: Carlos Cavazos on 05-30-2022 Hematocrit (Bld) [Volume fraction] 39.5 % 40-54 [facility] INR in Blood by Coagulation assayOrdered By: Carlos Cavazos on 05-30-2022 INR Coag (Bld) [Relative time] 1.9 {INR} [facility] Laboratory - Chemistry and C hemistry - challengeOrdered By: Carlos Cavazos on 05-30-2022 CO2 [Moles/Vol] 27.0 mmol/L 21.0-32.0 [facility] Urea nitrogen/Creatinine [Mass ratio] 21.4 mg/mg 10-20 [facility] Laboratory - CoagulationOrde red By: Carlos Cavazos on 05-30-2022 PT Coag (PPP) [Time] 21.6 s 11.7-14.9 [facility] Laboratory - Hematology and Cell countsOrdered By: Carlos Cavazos on 05-30-2022 Erythrocyte distribution width (RBC) [Entitic vol] 48.8 fL 35.1-43.9 [facility] Erythrocyte distribution width (RBC) [Ratio] 16.2 % 11.6-14.6 [facility] MCH (RBC) [Entitic mass] 25.3 pg 27.0-32.0 [facility] [Mass/Vol]Or dered By: Carlos Cavazos on 05-30-2022 MCHC (RBC) [Mass/Vol] 30.6 g/dL 32-36 [facility] No Panel InformationOrdered By: Carlos Cavazos on 05-30-2022 Estimated GFR (MDRD) Amer 133 mL/min >60 [facility] Comment on above: GFR Calc Estimated GFR (MDRD) Non-Af Amer 110 mL/min >60 [facility] Comment on above: Non- GFR Calc Platelets bldOrdered By: Ted Cavazos on 05-30-2022 Platelets (Bld) [#/Vol] 308 10*3/uL 150-450 [facility] Serum or plasma calcium oral urement (mass/volume)Ordered By: Carlos Cavazos on 05-30-2022 Calcium [Mass/Vol] 9.1 mg/dL 8.5-10.1 [facility] Serum or plasma creatinine m easurement (mass/volume)Ordered By: Carlos Cavazos on 05-30-2022 Creatinine [Mass/Vol] 0.75 mg/dL 0.70-1.30 [facility] Comment on above: The validity of the calculated GFR & GFRAA in patients over 70 years has not been determined. Clinical correlation is essential. Serum or plasma urea nitroge n measurement (mass/volume)Ordered By: Carlos Cavazos on 05-30-2022 Urea nitrogen [Mass/Vol] 16 mg/dL 7-18 [facility] Thin prep Papanicolaou smear with manual screeningOrdered By: Carlos Cavazos on 05-30-2022 Thin prep Papanicolaou smear with manual screening 8 5-15 [facility] Laboratory - CoagulationOrde red By: Carlos Cavazos on 05-16-2022 INR Coag (Bld) [Relative time] 2.6 {INR} [facility] Comment on above: Critical Value > 4.0 Whole blood prothrombin time Ordered By: Carlos Cavazos on 05-16-2022 PT Coag (Bld) [Time] 29.9 s 11.7-14.[address] [facility] Laboratory - CoagulationOrde red By: Carlos Cavazos on 05-02-2022 INR Coag (Bld) [Relative time] 2.0 {INR} [facility] Comment on above: Critical Value > 4.0 Whole blood prothrombin time Ordered By: Carlos Cavazos on 05-02-2022 PT Coag (Bld) [Time] 23.2 s 11.7-14.9 [facility] Laboratory - CoagulationOrde red By: Carlos Cavazos on 04-27-2022 INR Coag (Bld) [Relative time] 2.7 {INR} [facility] Comment on above: Critical Value > 4.0 Whole blood prothrombin time Ordered By: Carlos Cavazos on 04-27-2022 PT Coag (Bld) [Time] 31.1 s 11.7-14.9 [facility] Laboratory - CoagulationOrde red By: Carlos Cavazos on 04-26-2022 INR Coag (Bld) [Relative time] 2.8 {INR} [facility] Comment on above: Critical Value > 4.0 Whole blood prothrombin time Ordered By: Carlos Cavazos on 04-26-2022 PT Coag (Bld) [Time] 32.6 s 11.7-14.9 [facility] Laboratory - CoagulationOrde red By: Carlos Cavazos on 04-11-2022 INR Coag (Bld) [Relative time] 2.9 {INR} [facility] Comment on above: Critical Value > 4.0 Whole blood prothrombin time Ordered By: Carlos Cavazos on 04-11-2022 PT Coag (Bld) [Time] 32.8 s 11.7-14.9 [facility] Laboratory - CoagulationOrde red By: Carlos Cavazos on 03-28-2022 INR Coag (Bld) [Relative time] 2.1 {INR} [facility] Comment on above: Critical Value > 4.0 Whole blood prothrombin time Ordered By: Carlos Cavazos on 03-28-2022 PT Coag (Bld) [Time] 24.8 s 11.7-14.9 [facility] Laboratory - CoagulationOrde red By: Carlos Cavazos on 03-23-2022 INR Coag (Bld) [Relative time] 1.7 {INR} [facility] Comment on above: Critical Value > 4.0 Whole blood prothrombin time Ordered By: Carlos Cavazos on 03-23-2022 PT Coag (Bld) [Time] 20.9 s 11.7-14.9 [facility] Laboratory - CoagulationOrde red By: Carlos Cavazos on 03-16-2022 INR Coag (Bld) [Relative time] 1.7 {INR} [facility] Comment on above: Critical Value > 4.0 Whole blood prothrombin time Ordered By: Carlos Cavazos on 03-16-2022 PT Coag (Bld) [Time] 19.9 s 11.7-14.9 [facility] Laboratory - CoagulationOrde red By: Carlos Cavazos on 03-09-2022 INR Coag (Bld) [Relative time] 1.8 {INR} [facility] Comment on above: Critical Value > 4.0 Whole blood prothrombin time Ordered By: Carlos Cavazos on 03-09-2022 PT Coag (Bld) [Time] 21.9 s 11.7-14.9 [facility] Laboratory - CoagulationOrde red By: Carlos Cavazos on 03-06-2022 INR Coag (Bld) [Relative time] 1.7 {INR} [facility] Comment on above: Critical Value > 4.0 Whole blood prothrombin time Ordered By: Carlos Cavazos on 03-06-2022 PT Coag (Bld) [Time] 20.0 s 11.7-14.9 [facility] CBC with Auto Differentialon 03-02-2022 [...] - 10.7 10*3/uL [facility] Test Performed by [facility], [address] [place] [address] [facility] [address] HEAD WO CONTRASTon 2021 Patient Name: ANDREW SIFUENTES Computed Tomography ACCESSION EXAM DATE/TIME PROCEDURE ORDERING PROVIDER [id number] 03/02/2022 13:[address] Head or Brain w/o [id number] -LANETTE MUNGUIA Contrast CPT code 44973 Reason For Exam (CT Head or Brain [...] tubes (parent active on the left for YOU[employer] ASSOCIATE shunting and disconnected on the right). 2. No definite evidence of acute infarction (MRI more sensitive), mass lesion, nor hemorrhage. Report Dictated on --- Final --- Dictated: 03/02/2022 1:35 pm Dictating Physician: MD GUTIERREZ WILLIAM Signed Date and Time: 03/02/2022 1:39 pm Signed by: MD GUTIERREZ WILLIAM Transcribed Date and Time: 03/02/2022 1:35 [facility] Anant Gutierrez MD - 03/02/2022 [id number] ACCESSION EXAM DATE/TIME PROCEDURE ORDERING PROVIDER [id number] 03/02/2022 13:[address] Head or Brain w/o [id number] -EZRA LANETTE Contrast CPT code 46318 Reason For Exam (CT Head or Brain [...] tubes (parent active on the left for YOUTH ASSOCIATE shunting and disconnected on the right). 2. [...] Tomography ACCESSION EXAM DATE/TIME PROCEDURE ORDERING PROVIDER [id number] 03/02/2022 13:[address] Head or Brain w/o [id number] -LANETTE MUNGUIA Contrast CPT code 71365 Reason For Exam (CT Head or Brain [...] tubes (parent active on the left for YOUTH ASSOCIATE shunting and disconnected on the right). 2. No definite evidence of acute infarction (MRI more sensitive), mass lesion, nor hemorrhage. Report Dictated on Final Dictated: 03/02/2022 1:35 pm Dictating Physician: MD GUTIERREZ WILLIAM Signed Date and Time: 03/02/2022 1:39 pm Signed by: MD GUTIERREZ WILLIAM Transcribed Date and Time: 03/02/2022 1:35 Normal [facility] Comp Metabolic Panelon 03-02 Calcium [Mass/Vol] 9.1 mg/dL Normal 8.4-10.4 [facility] Comment on above: Performed By: #### H TIERA PT, CMP3 ####[id number] [place], [place] ALP [Catalytic activity/Vol] 128 U/L High 38-126 [facility] Comment on above: Performed By: #### H TIERA PT, CMP3 ####[id number] [place], [place] ALT [Catalytic activity/Vol] 12 U/L Normal 0-49 [facility] Comment on above: Result Comment: The ALT test is performed by an updated assay method. Please note that the reference intervals have been changed and are now sex specific. Performed By: #### H EMDF PT, CMP3 ####[id number] [place], [place] Anion gap [Moles/Vol] 7 mmol/L Normal 3-[address] [facility] Comment on above: Performed By: #### H EMDF PT, CMP3 ####[id number] [place], [place] AST [Catalytic activity/Vol] 24 U/L Normal 15-46 [facility] Comment on above: Performed By: #### H CHRISTEL MOTT, CMP3 ####[id number] [place], [place] Bilirubin [Mass/Vol] 0.4 mg/dL Normal 0.2-1.3 [facility] Comment on above: Performed By: #### H CHRISTEL MOTT, CMP3 ####[id number] [place], [place] CO2 [Moles/Vol] 27 mmol/L Normal 22-30 [facility] Comment on above: Performed By: #### H CHRISTEL MOTT CMP3 ####[id number] [place], [place] Glucose [Mass/Vol] 109 mg/dL High 70-100 [facility] Comment on above: Performed By: #### H CHRISTEL MOTT, CMP3 ####[id number] [place], [place] Protein [Mass/Vol] 8.1 g/dL Normal 6.3-8.2 [facility] Comment on above: Performed By: #### H CHRISTEL MOTT, CMP3 ####[address] [address] [place], [place] Urea nitrogen [Mass/Vol] 22 mg/dL High 7-17 [facility] Comment on above: Performed By: #### H CHRISTEL MOTT, CMP3 ####[address] [place] Creatinine [Mass/Vol] 0.63 mg/dL Normal 0.52-1.[address] [facility] Comment on above: Performed By: #### H CHRISETL MOTT, CMP3 ####[id number] [place], [place] eGFR OTHER > 90.0 Normal >60 [facility] Comment on above: Result Comment: KDIG [...] Performed By: #### H CHRISTEL MOTT CMP3 ####[id number] [place] [address] GFR/1.73 sq M.predicted among blacks MDRD (S/P/Bld) [Vol rate/Area] mL/min/{1.73_m2} Normal >60 [facility] Comment on above: Performed By: #### H CHRISTEL MOTT CMP3 ####[address] [address] Albumin [Mass/Vol] 4.1 g/dL Normal 3.5-5.0 [facility] Comment on above: Performed By: #### H CHRISTEL MOTT CMP3 ####[address] [address] Chloride [Moles/Vol] 106 mmol/L Normal 98-107 [facility] Comment on above: Performed By: #### H CHRISTEL MOTT CMP3 ####[address] [address] Potassium [Moles/Vol] 3.7 mmol/L Normal 3.5-5.[address] [facility] Comment on above: Performed By: #### H CHRISTEL MOTT CMP3 ####[id number] [place] [address] Sodium [Moles/Vol] 140 mmol/L Normal 135-145 [facility] Comment on above: Performed By: #### H EMDF, PT, CMP3 ####[facility] [place] [address] Comprehensive Metabolic Pane [facility] 03-02-2022 Albumin [Mass/Vol] 4.1 g/dL 3.5 - [...] P INF mL/min [facility] EGFR IF NonAfrican Indonesian mL/min 60 - PINF mL/min [facility] Comment [...] - 17 mg/dL [facility] Test Performed by [facility], [address] [place] [id number] [facility] LAB [facility] ED Provider Noteon 2 ED Provider Note [facility] EMERGENCY DEPT EMERGENCY DEPARTMENT ENCOUNTER Pt [...] male medical history of hydrocephalus status post YOUTH ASSOCIATE shunt, history of DVT on Coumadin [facility]. 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 Normal [facility] Hemogram w/ Autodiffon 03-02 Abs Baso Cnt 0.2 10*3/uL Normal 0.0-0.2 [facility] Comment on above: Performed By: #### H EMDF PT, CMP3 ####[facility] [place] [address] Abs Neutrophile Cnt 10.7 10*3/uL High 1.8-7.[address] [facility] Comment on above: Performed By: #### H EMDF, PT, CMP3 ####[facility] [place] [address] Basophils/100 WBC (Bld) 1.1 % Normal 0.0-2.0 [facility] Comment on above: Performed By: #### H EMDF, PT, CMP3 ####[facility] [place] [address] Eosinophils (Bld) [#/Vol] 0.1 10*3/uL Normal 0.0-0.5 [facility] Comment on above: Performed By: #### H EMDHeydi PT, CMP3 ####[address] [address] Eosinophils/100 WBC (Bld) 0.5 % Low 1.0-6.0 [facility] Comment on above: Performed By: #### H EMDF PT, CMP3 ####[address] [address] Granulocytes/100 WBC (Bld) 73.9 % Normal 40.0-80.0 [facility] Comment on above: Performed By: #### H TIERA PT, CMP3 ####[address] [address] Lymphocytes (Bld) [#/Vol] 3.0 10*3/uL Normal 1.0-4.3 [facility] Comment on above: Performed By: #### H TIERA PT, CMP3 ####[address] [address] Lymphocytes/100 WBC (Bld) 20.6 % Normal 20.0-40.0 [facility] Comment on above: Performed By: #### H EMDHeydi PT, CMP3 ####[address] [address] Monocytes (Bld) [#/Vol] 0.6 10*3/uL Normal 0.0-0.8 [facility] Comment on above: Performed By: #### H EMDF PT, CMP3 ####[address] [address] Monocytes/100 WBC (Bld) 3.9 % Normal 2.0-10.0 [facility] Comment on above: Performed By: #### H EMDF PT, CMP3 ####[address] [address] Platelet mean volume (Bld) [Entitic vol] 8.5 fL Normal 7.4-12.4 [facility] Comment on above: Result Comment: MPV is a calculated measurement using platelet volume ratio. Performed By: #### H EMDHeydi PT, CMP3 ####[address] Platelets (Bld) [#/Vol] 411 10*3/uL Normal 140-440 [facility] Comment on above: Performed By: #### H EMDHeydi PT, CMP3 ####[id number] [place], [place] Erythrocyte distribution width (RBC) [Ratio] 17.0 % High 11.5-14.5 [facility] Comment on above: Performed By: #### H TIERA PT, CMP3 ####[address] Hematocrit (Bld) [Volume fraction] 37.4 % Low 40.0-52.0 [facility] Comment on above: Performed By: #### H TIERA PT, CMP3 ####[address] Hemoglobin (Bld) [Mass/Vol] 12.1 g/dL Low 13.0-18.0 [facility] Comment on above: Performed By: #### H TIERA PT, CMP3 ####[id number] [place], [place] MCH (RBC) [Entitic mass] 26.2 pg Normal 26.0-34.0 [facility] Comment on above: Performed By: #### H EMDHeydi PT, CMP3 ####[id number] [place], [place] MCHC 32.3 % Normal 32.0-36.0 [facility] Comment on above: Performed By: #### H TIERA PT, CMP3 ####[address] MCV (RBC) [Entitic vol] 81.1 fL Normal 80.0-98.0 [facility] Comment on above: Performed By: #### H EMDHeydi PT, CMP3 ####[address] RBC (Bld) [#/Vol] 4.61 10*6/uL Normal 4.40-5.90 [facility] Comment on above: Performed By: #### H BIMALF PT, CMP3 ####[id number] [place], [place] WBC (Bld) [#/Vol] 14.5 10*3/uL High 3.6-10.7 [facility] Comment on above: Performed By: #### H BIMALF PT, CMP3 ####[id number] [place], [place] Prothrombin Timeon INR 1.9 High 0.9-1.1 [facility] Comment on above: Result Comment: Harry [...] By: #### H TIERA PT, CMP3 ####[address] PT Coag (PPP) [Time] 18.9 s High 9.0-12.0 [facility] Comment on above: Result Comment: . Performed By: #### H TIERA PT, CMP3 ####[id number] [place], [place] Protime-INRon 03-02-2022 INR Coag (Bld) [Relative time] 1.9 {INR} High [facility] Comment on above: Recommended Anticoag [...] Interpretation and review of laboratory results Abnormal [facility] PT Coag (PPP) [Time] 18.9 s High 9.0 - 12.0 s [facility] Comment on above: . Test Performed by [facility], [address] [place] [id number] [place] [address] LAB [facility] Laboratory - CoagulationOrde red By: Carlos Cavazos on 02-20-2022 INR Coag (Bld) [Relative time] 2.6 {INR} [facility] Comment on above: Critical Value > 4.0 Whole blood prothrombin time Ordered By: Carlos Cavazos on 02-20-2022 PT Coag (Bld) [Time] 30.1 s 11.7-14.9 [facility] Laboratory - CoagulationOrde red By: Carlos Cavazos on 02-13-2022 INR Coag (Bld) [Relative time] 2.3 {INR} [facility] Comment on above: Critical Value > 4.0 Whole blood prothrombin time Ordered By: Carlos Cavazos on 02-13-2022 PT Coag (Bld) [Time] 26.7 s 11.7-14.9 [facility] Laboratory - CoagulationOrde red By: Carlos Cavazos on 02-06-2022 INR Coag (Bld) [Relative time] 2.3 {INR} [facility] Comment on above: Critical Value > 4.0 Whole blood prothrombin time Ordered By: Carlos Cavazos on 02-06-2022 PT Coag (Bld) [Time] 26.6 s 11.7-14.9 [facility] Laboratory - Coagulationon 0 01-30-2022 INR Coag (Bld) [Relative time] 1.7 {INR} [facility] Work Phone: Comment on above: Critical Value > 4.0 Whole blood prothrombin time on 01-30-2022 PT Coag (Bld) [Time] 20.1 s 11.7-14.9 [facility] Work Phone: Laboratory - Coagulationon 0 01-26-2022 INR Coag (Bld) [Relative time] 1.8 {INR} [facility] Work Phone: Comment on above: Critical Value > 4.0 Whole blood prothrombin time on 01-26-2022 PT Coag (Bld) [Time] 21.8 s 11.7-14.9 [facility] Work Phone: Laboratory - Coagulationon 0 01-19-2022 INR Coag (Bld) [Relative time] 2.2 {INR} [facility] Work Phone: Comment on above: Critical Value > 4.0 Whole blood prothrombin time on 01-19-2022 PT Coag (Bld) [Time] 25.7 s 11.7-14.9 [facility] Work Phone: INR in Blood by Coagulation assayon 01-10-2022 INR Coag (Bld) [Relative time] 1.8 {INR} [facility] Work Phone: Laboratory - Coagulationon 0 01-10-2022 PT Coag (PPP) [Time] 20.9 s 11.7-14.9 [facility] Work Phone: Basophil percentageon 2021 Chloride [Moles/Vol] 107 mmol/L 98-107 [facility] Work Phone: Glucose [Mass/Vol] 82 mg/dL 74-106 [facility] Work Phone: Potassium [Moles/Vol] 3.4 mmol/L 3.5-5.1 [facility] Work Phone: Sodium [Moles/Vol] 143 mmol/L 136-145 [facility] Work Phone: WBC (Bld) [#/Vol] 10.4 10*3/uL 4.4-11.0 [facility] Work Phone: Blood erythrocytes count (nu mber/volume)on 01-05-2022 RBC (Bld) [#/Vol] 4.27 10*6/uL 4.6-6.2 [facility] Work Phone: Blood hemoglobin measurement (mass/volume)on 01-05-2022 Hemoglobin (Bld) [Mass/Vol] 11.2 g/dL 13.0-16.5 [facility] Work Phone: Blood platelet mean volumeon 01-05-2022 Platelet mean volume (Bld) [Entitic vol] 10.3 fL 6.2-12.0 [facility] Work Phone: Determination of erythrocyte mean corpuscular volume (MCV)on 01-05-2022 MCV (RBC) [Entitic vol] 84.8 fL 80-94 [facility] Work Phone: Hematocrit Auto (Bld) [Volum e fraction]on 01-05-2022 Hematocrit (Bld) [Volume fraction] 36.2 % 40-54 [facility] Work Phone: Laboratory - Chemistry and C hemistry - challengeon 01-05-2022 CO2 [Moles/Vol] 28.0 mmol/L 21.0-32.0 [facility] Work Phone: Urea nitrogen/Creatinine [Mass ratio] 20.0 mg/mg 10-20 [facility] Work Phone: Laboratory - Hematology and Cell countson 01-05-2022 Erythrocyte distribution width (RBC) [Entitic vol] 51.8 fL 35.1-43.9 [facility] Work Phone: Erythrocyte distribution width (RBC) [Ratio] 16.8 % 11.6-14.6 [facility] Work Phone: MCH (RBC) [Entitic mass] 26.2 pg 27.0-32.0 [facility] Work Phone: MCHC Auto (RBC) [Mass/Vol]on 01-05-2022 MCHC (RBC) [Mass/Vol] 30.9 g/dL 32-36 [facility] Work Phone: No Panel Informationon 01-05 Estimated GFR (MDRD) Amer 133 mL/min >60 [facility] Work Phone: Comment on above: GFR Calc Estimated GFR (MDRD) Non-Af Amer 110 mL/min >60 [facility] Work Phone: Comment on above: Non- GFR Calc Platelets bldon 01-05-2022 Platelets (Bld) [#/Vol] 373 10*3/uL 150-450 [facility] Work Phone: Serum or plasma calcium oral urement (mass/volume)on 01-05-2022 Calcium [Mass/Vol] 8.8 mg/dL 8.5-10.1 [facility] Work Phone: Serum or plasma creatinine m easurement (mass/volume)on 01-05-2022 Creatinine [Mass/Vol] 0.75 mg/dL 0.70-1.30 [facility] Work Phone: Comment on above: The validity of the calculated GFR & GFRAA in patients over 70 years has not been determined. Clinical correlation is essential. Serum or plasma urea nitroge n measurement (mass/volume)on 01-05-2022 Urea nitrogen [Mass/Vol] 15 mg/dL 7-18 [facility] Work Phone: Thin prep Papanicolaou smear with manual screeningon 01-05-2022 Thin prep Papanicolaou smear with manual screening 8 5-15 [facility] Work Phone: Laboratory - Coagulationon 0 12-30-2021 INR Coag (Bld) [Relative time] 2.0 {INR} [facility] Work Phone: Comment on above: Critical Value > 4.0 Whole blood prothrombin time on 12-30-2021 PT Coag (Bld) [Time] 23.7 s 11.7-14.9 [facility] Work Phone: Basophil percentageon 2021 Chloride [Moles/Vol] 106 mmol/L 98-107 [facility] Work Phone: Glucose [Mass/Vol] 91 mg/dL 74-106 [facility] Work Phone: Potassium [Moles/Vol] 3.4 mmol/L 3.5-5.1 [facility] Work Phone: [phone] Sodium [Moles/Vol] 141 mmol/L 136-145 [facility] Work Phone: WBC (Bld) [#/Vol] 10.2 10*3/uL 4.4-11.0 [facility] Work Phone: Blood erythrocytes count (nu mber/volume)on 12-28-2021 RBC (Bld) [#/Vol] 4.22 10*6/uL 4.6-6.2 [facility] Work Phone: Blood hemoglobin measurement (mass/volume)on 12-28-2021 Hemoglobin (Bld) [Mass/Vol] 11.2 g/dL 13.0-16.5 [facility] Work Phone: Blood platelet mean volumeon 12-28-2021 Platelet mean volume (Bld) [Entitic vol] 10.1 fL 6.2-12.0 [facility] Work Phone: Determination of erythrocyte mean corpuscular volume (MCV)on 12-28-2021 MCV (RBC) [Entitic vol] 82.7 fL 80-94 [facility] Work Phone: Hematocrit Auto (Bld) [Volum e fraction]on 12-28-2021 Hematocrit (Bld) [Volume fraction] 34.9 % 40-54 [facility] Work Phone: Laboratory - Chemistry and C hemistry - challengeon 12-28-2021 CO2 [Moles/Vol] 30.0 mmol/L 21.0-32.0 [facility] Work Phone: Urea nitrogen/Creatinine [Mass ratio] 33.7 mg/mg 10-20 [facility] Work Phone: Laboratory - Hematology and Cell countson 12-28-2021 Erythrocyte distribution width (RBC) [Entitic vol] 49.1 fL 35.1-43.9 [facility] Work Phone: Erythrocyte distribution width (RBC) [Ratio] 16.5 % 11.6-14.6 [facility] Work Phone: MCH (RBC) [Entitic mass] 26.5 pg 27.0-32.0 [facility] Work Phone: MCHC Auto (RBC) [Mass/Vol]on 12-28-2021 MCHC (RBC) [Mass/Vol] 32.1 g/dL 32-36 [facility] Work Phone: No Panel Informationon 12-28 Estimated GFR (MDRD) Amer 174 mL/min >60 [facility] Work Phone: Comment on above: GFR Calc Estimated GFR (MDRD) Non-Af Amer 143 mL/min >60 [facility] Work Phone: Comment on above: Non- GFR Calc Platelets bldon 12-28-2021 Platelets (Bld) [#/Vol] 339 10*3/uL 150-450 [facility] Work Phone: Serum or plasma calcium oral urement (mass/volume)on 12-28-2021 Calcium [Mass/Vol] 8.6 mg/dL 8.5-10.1 [facility] Work Phone: Serum or plasma creatinine m easurement (mass/volume)on 12-28-2021 Creatinine [Mass/Vol] 0.59 mg/dL 0.70-1.30 [facility] Work Phone: Comment on above: The validity of the calculated GFR & GFRAA in patients over 70 years has not been determined. Clinical correlation is essential. Serum or plasma urea nitroge n measurement (mass/volume)on 12-28-2021 Urea nitrogen [Mass/Vol] 20 mg/dL 7-18 [facility] Work Phone: Thin prep Papanicolaou smear with manual screeningon 12-28-2021 Thin prep Papanicolaou smear with manual screening 5 5-15 [facility] Work Phone: CULTURE BLOODon 12-27-2021 Microscopic examination of blood, culture CULTURE BLOOD --> Status: F No growth at 5 days. Normal [facility] Comment on above: Performed By: #### C /BLD #### [facility] [employer] [facility] [address] [place] [address] Laboratory - Coagulationon 0 12-26-2021 INR Coag (Bld) [Relative time] 1.7 {INR} [facility] Work Phone: Comment on above: Critical Value > 4.0 Whole blood prothrombin time on 12-26-2021 PT Coag (Bld) [Time] 20.8 s 11.7-14.9 [facility] Work Phone: Basic Metabolic Panelon 12-05 Calcium [Mass/Vol] 8.8 mg/dL Normal 8.4-10.4 [facility] Comment on above: Performed By: #### C RP2, ESR, HEMDF, BMP3 ####[facility] [employer] [place] Anion gap [Moles/Vol] 6 mmol/L Normal 3-[address] [facility] Comment on above: Performed By: #### C RP2, ESR, HEMDF, BMP3 ####[employer] [place] CO2 [Moles/Vol] 27 mmol/L Normal 22-30 [facility] Comment on above: Performed By: #### C RP2, ESR, HEMDF, BMP3 ####[facility] [address] [place] Glucose [Mass/Vol] 100 mg/dL Normal 70-100 [facility] Comment on above: Performed By: #### C RP2, ESR, HEMDF, BMP3 ####[address] [place], [place] Urea nitrogen [Mass/Vol] 18 mg/dL High 7-17 [facility] Comment on above: Performed By: #### C RP2, ESR, HEMDF, BMP3 ####[address] [place] [address] Creatinine [Mass/Vol] 0.73 mg/dL Normal 0.52-1.[address] [facility] Comment on above: Performed By: #### C RP2, ESR, HEMDF, BMP3 ####[facility] [employer]Login [id number] [place], [place] eGFR OTHER > 90.0 Normal >60 [facility] Comment on above: Result Comment: KDIG [...] #### C RP2, ESR, HEMDF, BMP3 ####[facility] [address] [place], [place] GFR/1.73 sq M.predicted among blacks MDRD (S/P/Bld) [Vol rate/Area] mL/min/{1.73_m2} Normal >60 [facility] Comment on above: Performed By: #### C RP2, ESR, HEMDF, BMP3 ####[facility] [address] [place], [place] Potassium [Moles/Vol] 3.7 mmol/L Normal 3.5-5.[address] [facility] Comment on above: Performed By: #### C RP2, ESR, HEMDF, BMP3 ####[facility] [employer] [id number] [place], [place] Chloride [Moles/Vol] 106 mmol/L Normal 98-107 [facility] Comment on above: Performed By: #### C RP2, ESR, HEMDF, BMP3 ####[facility] [place] [address] Sodium [Moles/Vol] 139 mmol/L Normal 135-145 [facility] Comment on above: Performed By: #### C RP2, ESR, HEMDF, BMP3 ####[facility] [place] [address] Anion gap [Moles/Vol] 6 mmol/L 3 - 13 mmol/L [facility] Calcium [Mass/Vol] 8.8 mg/dL 8.4 - 10. 4 mg/dL [facility] Chloride [Moles/Vol] 106 mmol/L 98 - 10 7 mmol/L [facility] CO2 [Moles/Vol] 27 mmol/L 22 - 30 mmol/L [facility] Creatinine [Mass/Vol] 0.73 mg/dL 0.52 - 1.25 mg/dL [facility] eGFR mL/min 60 - P INF mL/min [facility] EGFR IF NonAfrican Indonesian mL/min 60 - PINF mL/min [facility] Comment on above: KDIGO guidelines pro [...] 2021 Basophil percentage 25-50 SEEN /hpf 0-5 [facility] Work Phone: Chloride [Moles/Vol] 106 mmol/L 98-[address] [facility] [address] [facility] Work Phone: Glucose [Mass/Vol] 93 mg/dL 74-106 [facility] Work Phone: Potassium [Moles/Vol] 3.5 mmol/L 3.5-5.1 [facility] Work Phone: Sodium [Moles/Vol] 140 mmol/L 136-145 [facility] Work Phone: WBC (Bld) [#/Vol] 9.6 10*3/uL 4.4-11.0 [facility]: Bilirubin Test strip Ql (U)o n 12-22-2021 Bilirubin Ql (U) Negative Negative [facility] Work Phone: Blood erythrocytes count (nu mber/volume)on 12-22-2021 RBC (Bld) [#/Vol] 4.34 10*6/uL 4.6-6.2 [facility] Work Phone: Blood hemoglobin measurement (mass/volume)on 12-22-2021 Hemoglobin (Bld) [Mass/Vol] 11.5 g/dL 13.0-16.5 [facility] Work Phone: Blood platelet mean volumeon 12-22-2021 Platelet mean volume (Bld) [Entitic vol] 10.8 fL 6.2-12.0 [facility] Work Phone: C-Reactive Proteinon 022 CRP [Mass/Vol] 27.2 mg/L High 0.0-9.9 [employer] Comment on above: Result Comment: . Performed By: #### C RP2, ESR, HEMDF, BMP3 ####[employer] [id number] [place] [address] CRP [Mass/Vol] 27.2 mg/L High 0 - 9.9 mg/L [employer] Comment on above: . CBC with Auto [...] - 10.7 10*3/uL [facility] Test Performed by [facility], [address] [place] [address] [facility] COVID-19, Flu A/B, and RSV C omboon 12-22-2021 Influenza A by PCR Not detected [facility] A Influenza B by PCR Not detected [facility] A RSV PCR Not Detected. Expected Result: Not Detected _ Method: Real-time, RT-PCR This assay was developed by [employer] and distributed under an Emergency Use Authorization (EUA) granted by the FDA for the qualitative detection of nucleic acids from SARS-CoV-2, Influenza A, Influenza B, and Respiratory Syncytial Virus. Provider and patient fact sheets can be found at https://www.fda.gov/media /921554/download and https://www.fda.gov/media /114192/download. [facility] SARS-CoV-2 (COVID-19) RNA MEGAN+probe Ql (Unsp spec) Not detected [facility] Test Performed by [address] [address] [facility] CR Foot Complete 3+ Views Le fton 12-22-2021 CR Foot Complete 3+ Views Left Patient Name: ANDREW SIFUENTES Diagnostic Radiology ACCESSION EXAM DATE/TIME PROCEDURE ORDERING PROVIDER [id number] 12/22/2021 00:09 EDT CR Foot Complete 3+ SANDY HIDALGO, TRAVIS Views Left CPT code 46886 Reason For Exam (CR Foot Complete 3+ [...] Transcribed Date and Time: 12/22/2021 0:21 Normal [facility] Calcium oxalate crystals det ection in urine sediment by light microscopyon 12-22-2021 Calcium oxalate crystals LM Ql (Urine sed) 1+ /hpf [facility] Work Phone: Determination of erythrocyte mean corpuscular volume (MCV)on 12-22-2021 MCV (RBC) [Entitic vol] 84.3 fL 80-94 [facility] Work Phone: ED Provider Noteon 2 [...] 79.4 kg (175 lb), SpO2 96 %. Qnu-eff-sopefiqen in no acute distress. Alert and oriented [...] [employer] Sharon Olivia MD 12/22/21 0305 [facility] ED Provider Note [facility] EMERGENCY DEPT EMERGENCY DEPARTMENT ENCOUNTER Pt Name: Andrew Sifuentes Birthdate 1950 Date of evaluation: 12/21/2021 Provider: SANIA Lou CHIEF COMPLAINT Chief Complaint Patient presents with Osteomyelitis Patient from [facility], facility did xrays on left [...] Hemorrhoids Hydrocephalus, adult (HCC) Kidney stone Neuropathy [employer] (ventriculoperitoneal) shunt status SURGICAL HISTORY Past Surgical [...] Response: Confused Best Motor Response: Obeys commands [place] Coma Scale Score: 14 Patient symptoms are [...] soft. Tenderness: (more content not included)... Normal [facility] [employer] Hematocrit Auto (Bld) [Volum e fraction]on 12-22-2021 Hematocrit (Bld) [Volume fraction] 36.6 % 40-54 [facility] Work Phone: Hemogram w/ Autodiffon 12-22 Abs Baso Cnt 0.1 10*3/uL Normal 0.0-0.2 [facility] [employer] Comment on above: Performed By: #### C RP2, ESR, HEMDF, BMP3 ####[id number] [place] [address] Abs Neutrophile Cnt 5.9 10*3/uL Normal 1.8-7.0 [facility] Comment on above: Performed By: #### C RP2, ESR, HEMDF, BMP3 ####[address] [address] Basophils/100 WBC (Bld) 0.7 % Normal 0.0-2.0 [facility] Comment on above: Performed By: #### C RP2, ESR, HEMDF, BMP3 ####[address] [address] Eosinophils (Bld) [#/Vol] 0.2 10*3/uL Normal 0.0-0.5 [facility] Comment on above: Performed By: #### C RP2, ESR, HEMDF, BMP3 ####[address] [address] Eosinophils/100 WBC (Bld) 2.3 % Normal 1.0-6.0 [facility] Comment on above: Performed By: #### C RP2, ESR, HEMDF, BMP3 ####[address] Erythrocyte distribution width (RBC) [Ratio] 17.5 % High 11.5-14.5 [facility] Comment on above: Performed By: #### C RP2, ESR, HEMDF, BMP3 ####[address] [address] Granulocytes/100 WBC (Bld) 57.8 % Normal 40.0-80.0 [facility] Comment on above: Performed By: #### C RP2, ESR, HEMDF, BMP3 ####[address] [address] Hematocrit (Bld) [Volume fraction] 33.3 % Low 40.0-52.0 [facility] Comment on above: Performed By: #### C RP2, ESR, HEMDF, BMP3 ####[address] [address] Hemoglobin (Bld) [Mass/Vol] 11.0 g/dL Low 13.0-18.0 [facility] Comment on above: Performed By: #### C RP2, ESR, HEMDF, BMP3 ####[address] Lymphocytes (Bld) [#/Vol] 3.3 10*3/uL Normal 1.0-4.3 [facility] Comment on above: Performed By: #### C RP2, ESR, HEMDF, BMP3 ####[address] Lymphocytes/100 WBC (Bld) 33.0 % Normal 20.0-40.0 [facility] Comment on above: Performed By: #### C RP2, ESR, HEMDF, BMP3 ####[address] MCH (RBC) [Entitic mass] 26.5 pg Normal 26.0-34.0 [facility] Comment on above: Performed By: #### C RP2, ESR, HEMDF, BMP3 ####[address] MCHC 33.1 % Normal 32.0-36.0 [facility] Comment on above: Performed By: #### C RP2, ESR, HEMDF, BMP3 ####[address] MCV (RBC) [Entitic vol] 80.2 fL Normal 80.0-98.0 [facility] Comment on above: Performed By: #### C RP2, ESR, HEMDF, BMP3 ####[address] Monocytes (Bld) [#/Vol] 0.6 10*3/uL Normal 0.0-0.8 [facility] Comment on above: Performed By: #### C RP2, ESR, HEMDF, BMP3 ####[address] Monocytes/100 WBC (Bld) 6.2 % Normal 2.0-10.0 [facility] Comment on above: Performed By: #### C RP2, ESR, HEMDF, BMP3 ####[facility] [address] [place], [place] Platelet mean volume (Bld) [Entitic vol] 8.0 fL Normal 7.4-12.4 [facility] Comment on above: Result Comment: MPV is a calculated measurement using platelet volume ratio. Performed By: #### C RP2, ESR, HEMDF, BMP3 ####[facility] [employer] [id number] [place], [place] Platelets (Bld) [#/Vol] 368 10*3/uL Normal 140-440 [facility] Comment on above: Performed By: #### C RP2, ESR, HEMDF, BMP3 ####[facility] [employer] [id number] [place], [place] RBC (Bld) [#/Vol] 4.15 10*6/uL Low 4.40-5.90 [facility] Comment on above: Performed By: #### C RP2, ESR, HEMDF, BMP3 ####[facility] [employer] [id number] [place], [place] WBC (Bld) [#/Vol] 10.1 10*3/uL Normal 3.6-10.7 [facility] Comment on above: Performed By: #### C RP2, ESR, HEMDF, BMP3 ####[facility] [employer] [id number] [place], [place] Ketones Test strip Ql (U)on 12-22-2021 Ketones Ql (U) Negative Negative [facility] Work Phone: Laboratory - Chemistry and C hemistry - challengeon 12-22-2021 CO2 [Moles/Vol] 27.0 mmol/L 21.0-32.0 [facility] Work Phone: Urea nitrogen/Creatinine [Mass ratio] 22.5 mg/mg 10-20 [facility] Work Phone: Laboratory - Hematology and Cell countson 12-22-2021 Erythrocyte distribution width (RBC) [Entitic vol] 49.1 fL 35.1-43.9 [facility] Work Phone: Erythrocyte distribution width (RBC) [Ratio] 16.1 % 11.6-14.6 [facility] Work Phone: MCH (RBC) [Entitic mass] 26.5 pg 27.0-32.0 [facility] Work Phone: MCHC Auto (RBC) [Mass/Vol]on 12-22-2021 MCHC (RBC) [Mass/Vol] 31.4 g/dL 32-36 [facility] Work Phone: Mucus LM Ql (Urine sed)on Mucus Ql (Urine sed) 0 SEEN /hpf [facility] Work Phone: Nitrite Test strip Ql (U)on 12-22-2021 Nitrite Ql (U) Positive Negative [facility] Work Phone: No Panel Informationon 12-22 Estimated GFR (MDRD) Amer 152 mL/min >60 [facility] Work Phone: Comment on above: GFR Calc Estimated GFR (MDRD) Non-Af Amer 125 mL/min >60 [facility] Work Phone: Comment on above: Non- GFR Calc Interpretation and review of laboratory results Abnormal [facility] Test Performed by [facility], [address] [place] [id number] [place] [address] LAB [facility] Platelets bldon 12-22-2021 Platelets (Bld) [#/Vol] 317 10*3/uL 150-450 [facility] Work Phone: Protein Test strip Ql (U)on 12-22-2021 Protein Ql (U) 30 mg/dl Negative [facility] Work Phone: SARS-CoV-2, Flu A/B and RSVo n 12-22-2021 SARS-CoV-2 (COVID-19) RNA MEGAN+probe Ql (Unsp spec) SARS-CoV-2 --> Status: F Not Detected. Flu A PCR --> Status: F Not Detected. Flu B PCR --> Status: F Not Detected. RSV PCR --> Status: F Not Detected. Expected Result: Not Detected _ Method: Real-time, RT-PCR This assay was developed by [employer] and distributed under an Emergency Use Authorization (EUA) granted by the FDA for the qualitative detection of nucleic acids from SARS-CoV-2, Influenza A, Influenza B, and Respiratory Syncytial Virus. Provider and patient fact sheets can be found at https://www.fda.gov/media /034796/download and https://www.fda.gov/media /054044/download. Expected Result: Not Detected _ Method: Real-time, RT-PCR This assay was developed by [employer] and distributed under an Emergency Use Authorization (EUA) granted by the FDA for the qualitative detection of nucleic acids from SARS-CoV-2, Influenza A, Influenza B, and Respiratory Syncytial Virus. Provider and patient fact sheets can be found at https://www.fda.gov/media /971887/download and https://www.fda.gov/media /241049/download. Normal [facility] Comment on above: Performed By: #### C VFLR ####[facility] [place] [address], [address] Sed Rateon 12-22-2021 Sed Rate 48 mm/h High 0-10 [facility] Comment on above: Performed By: #### C RP2, ESR, HEMDF, BMP3 ####[id number] [place] [address] Sedimentation Rateon 022 Interpretation and review of laboratory results Abnormal [facility] Sed Rate 48 mm/h High 0 - 10 mm/h [facility] Test Performed by [facility], [address] [place] [address] [facility] Serum or plasma calcium oral urement (mass/volume)on 12-22-2021 Calcium [Mass/Vol] 8.6 mg/dL 8.5-10.1 [facility] Work Phone: Serum or plasma creatinine m easurement (mass/volume)on 12-22-2021 Creatinine [Mass/Vol] 0.67 mg/dL 0.70-1.30 [facility] Work Phone: Comment on above: The validity of the calculated GFR & GFRAA in patients over 70 years has not been determined. Clinical correlation is essential. Serum or plasma urea nitroge n measurement (mass/volume)on 12-22-2021 Urea nitrogen [Mass/Vol] 15 mg/dL -18 [facility] Work Phone: Squamous epithelial cells de tection in urine sediment by light microscopyon 12-22-2021 Epithelial cells.squamous LM Ql (Urine sed) 0-5 SEEN /hpf 0-5 [facility] Work Phone: Thin prep Papanicolaou smear with manual screeningon 12-22-2021 Thin prep Papanicolaou smear with manual screening 7 5-15 [facility] Work Phone: Urine blood detectionon 12-05 RBC Ql (U) 150 /ul Negative [facility] Work Phone: RBC Ql (U) 10-25 SEEN /hpf 0-5 [facility] Work Phone: Urine clarityon 12-22-2021 Clarity (U) Sl. Cloudy Clear [facility] Work Phone: Urine color determinationon 12-22-2021 Color (U) Yellow Yellow [facility] Work Phone: Urine glucose detectionon Glucose Ql (U) Normal mg/dl Normal [facility] Work Phone: Urine leukocyte esterase det ection by dipstickon 12-22-2021 Leukocyte esterase Test strip Ql (U) 500 /ul Negative [facility] Work Phone: Urine pHon 12-22-2021 pH (U) 6.0 [pH] 5.0 - 8.0 [facility] Work Phone: Urine sediment bacteria coun t by microscopy (number/high power field)on 12-22-2021 Bacteria LM.HPF (Urine sed) [#/Area] 2 /[HPF] None Seen [facility] Work Phone: Urine specific gravity measu rementon 12-22-2021 Specific gravity (U) [Rel density] 1.020 1.002-1.030 [facility] Work Phone: Urobilinogen Auto test strip Ql (U)on 12-22-2021 Urobilinogen Ql (U) Normal mg/dl Normal [facility] Work Phone: XR FOOT LEFT (MIN 3 VIEWS)on 12-22-2021 Patient Name: ANDREW SIFUENTES Diagnostic Radiology ACCESSION EXAM DATE/TIME PROCEDURE ORDERING PROVIDER [id number] 12/22/2021 00:09 EDT CR Foot Complete 3+ SANDY HIDALGO, TRAVIS Views Left CPT code 29519 Reason For Exam (CR Foot Complete 3+ [...] Date and Time: 12/22/2021 0:21 [facility] Albert Solano MD - 12/22/2021 Patient Name: ANDREW SIFUENTES Diagnostic Radiology ACCESSION EXAM DATE/TIME PROCEDURE ORDERING PROVIDER [id number] 12/22/2021 00:09 EDT CR Foot Complete 3+ SANDY HIDALGO, TRAVIS Views Left CPT code 70795 Reason For Exam (CR Foot Complete 3+ [...] Date and Time: 12/22/2021 0:21 [facility] Work Phone: Radiology Study observation (narrative) [facility] Work Phone: XR FOOT LEFT (MIN 3 VIEWS)Or dered By: Albert Solano on 12-22-2021 [facility] Work Phone: Basophil percentageon 2021 Chloride [Moles/Vol] 103 mmol/L 98-[address] [facility] [address] [facility] Work Phone: [phone] Glucose [Mass/Vol] 92 mg/dL 74-106 [facility] Work Phone: Potassium [Moles/Vol] 3.5 mmol/L 3.5-5.1 [facility] Work Phone: Sodium [Moles/Vol] 138 mmol/L 136-145 [facility] Work Phone: WBC (Bld) [#/Vol] 11.2 10*3/uL 4.4-11.0 [facility] Work Phone: Blood erythrocytes count (nu mber/volume)on 12-19-2021 RBC (Bld) [#/Vol] 4.50 10*6/uL 4.6-6.2 [facility] Work Phone: Blood hemoglobin measurement (mass/volume)on 12-19-2021 Hemoglobin (Bld) [Mass/Vol] 12.2 g/dL 13.0-16.5 [facility] Work Phone: Blood platelet mean volumeon 12-19-2021 Platelet mean volume (Bld) [Entitic vol] 11.3 fL 6.2-12.0 [facility] Work Phone: Determination of erythrocyte mean corpuscular volume (MCV)on 12-19-2021 MCV (RBC) [Entitic vol] 85.6 fL 80-94 [facility] Work Phone: Hematocrit Auto (Bld) [Volum e fraction]on 12-19-2021 Hematocrit (Bld) [Volume fraction] 38.5 % 40-54 [facility] Work Phone: Laboratory - Chemistry and C hemistry - challengeon 12-19-2021 CO2 [Moles/Vol] 30.0 mmol/L 21.0-32.0 [facility] Work Phone: Urea nitrogen/Creatinine [Mass ratio] 27.1 mg/mg 10-20 [facility] Work Phone: Laboratory - Hematology and Cell countson 12-19-2021 Erythrocyte distribution width (RBC) [Entitic vol] 50.5 fL 35.1-43.9 [facility] Work Phone: Erythrocyte distribution width (RBC) [Ratio] 16.0 % 11.6-14.6 [facility] Work Phone: MCH (RBC) [Entitic mass] 27.1 pg 27.0-32.0 [facility] Work Phone: MCHC Auto (RBC) [Mass/Vol]on 12-19-2021 MCHC (RBC) [Mass/Vol] 31.7 g/dL 32-36 [facility] Work Phone: No Panel Informationon 12-19 Estimated GFR (MDRD) Amer 153 mL/min >60 [facility] Work Phone: Comment on above: GFR Calc Estimated GFR (MDRD) Non-Af Amer 126 mL/min >60 [facility] Work Phone: Comment on above: Non- GFR Calc Platelets bldon 12-19-2021 Platelets (Bld) [#/Vol] 363 10*3/uL 150-450 [facility] Work Phone: Serum or plasma calcium oral urement (mass/volume)on 12-19-2021 Calcium [Mass/Vol] 9.5 mg/dL 8.5-10.1 [facility] Work Phone: Serum or plasma creatinine m easurement (mass/volume)on 12-19-2021 Creatinine [Mass/Vol] 0.66 mg/dL 0.70-1.30 [facility] Work Phone: Comment on above: The validity of the calculated GFR & GFRAA in patients over 70 years has not been determined. Clinical correlation is essential. Serum or plasma urea nitroge n measurement (mass/volume)on 12-19-2021 Urea nitrogen [Mass/Vol] 18 mg/dL 7-18 [facility] Work Phone: Thin prep Papanicolaou smear with manual screeningon 12-19-2021 Thin prep Papanicolaou smear with manual screening 5 5-15 [facility] Work Phone: Laboratory - Coagulationon 0 12-12-2021 INR Coag (Bld) [Relative time] 2.0 {INR} [facility] Work Phone: Comment on above: Critical Value > 4.0 Whole blood prothrombin time on 12-12-2021 PT Coag (Bld) [Time] 23.9 s 11.7-14.9 [facility] Work Phone: ANES POSTPROC EVALon 022 ANES POSTPROC EVAL Normal [facility] Laboratory - Coagulationon 0 12-08-2021 INR Coag (Bld) [Relative time] 1.8 {INR} [facility] Work Phone: Comment on above: Critical Value > 4.0 Whole blood prothrombin time on 12-08-2021 PT Coag (Bld) [Time] 21.0 s 11.7-14.9 [facility] Work Phone: Absolute lymphocyte counton 12-05-2021 Lymphocytes Auto (Unsp spec) [#/Vol] 2.97 10*3/uL 0.83-4.51 [facility] Work Phone: Basophil percentageon 2021 Basophils/100 WBC (Bld) 0.6 % 0-1 [facility] Work Phone: Chloride [Moles/Vol] 106 mmol/L 98-107 [facility] Work Phone: Eosinophils/100 WBC (Bld) 2.3 % 0-5 [facility] Work Phone: Glucose [Mass/Vol] 107 mg/dL 74-106 [facility] Work Phone: Comment on above: Fasting Glucose resu lt from 100 to 125 mg/dL suggests IMPAIRED HOMEOSTASIS per A.D.A. criteria. Neutrophils (Bld) [#/Vol] 5.6 10*3/uL 2.0-7.7 [facility] Work Phone: [phone] Neutrophils/100 WBC (Bld) 60.2 % 47-70 [facility] Work Phone: Potassium [Moles/Vol] 3.4 mmol/L 3.5-5.1 [facility] Work Phone: Sodium [Moles/Vol] 139 mmol/L 136-145 [facility] Work Phone: [phone] WBC (Bld) [#/Vol] 9.3 10*3/uL 4.4-11.0 [facility] Work Phone: Blood erythrocytes count (nu mber/volume)on 12-05-2021 RBC (Bld) [#/Vol] 4.49 10*6/uL 4.6-6.2 [facility] Work Phone: Blood hemoglobin measurement (mass/volume)on 12-05-2021 Hemoglobin (Bld) [Mass/Vol] 12.1 g/dL 13.0-16.5 [facility] Work Phone: Blood lymphocytes/100 leukoc yteson 12-05-2021 Lymphocytes/100 WBC (Bld) 32.0 % 19-41 [facility] Work Phone: Blood monocytes/100 leukocyt eson 12-05-2021 Monocytes/100 WBC (Bld) 4.7 % 0-10 [facility] Work Phone: Blood platelet mean volumeon 12-05-2021 Platelet mean volume (Bld) [Entitic vol] 10.8 fL 6.2-12.0 [facility] Work Phone: Determination of erythrocyte mean corpuscular volume (MCV)on 12-05-2021 MCV (RBC) [Entitic vol] 84.9 fL 80-94 [facility] Work Phone: Hematocrit Auto (Bld) [Volum e fraction]on 12-05-2021 Hematocrit (Bld) [Volume fraction] 38.1 % 40-54 [facility] Work Phone: INR in Blood by Coagulation assayon 12-05-2021 INR Coag (Bld) [Relative time] 1.8 {INR} [facility] Work Phone: Laboratory - Chemistry and C hemistry - challengeon 12-05-2021 CO2 [Moles/Vol] 29.0 mmol/L 21.0-32.0 [facility] Work Phone: Urea nitrogen/Creatinine [Mass ratio] 25.4 mg/mg 10-20 [facility] Work Phone: Laboratory - Coagulationon 0 12-05-2021 PT Coag (PPP) [Time] 20.5 s 11.7-14.9 [facility] Work Phone: Laboratory - Hematology and Cell countson 12-05-2021 Erythrocyte distribution width (RBC) [Entitic vol] 48.5 fL 35.1-43.9 [facility] Work Phone: Erythrocyte distribution width (RBC) [Ratio] 15.7 % 11.6-14.6 [facility] Work Phone: Immature granulocytes/100 WBC (Bld) 0.200 % 0.0-0.9 [facility] Work Phone: Comment on above: IG% - Immature Granu locytes (promyelocytes, myelocytes and metamyelocytes) > 1% indicates that a LEFT SHIFT is Present. MCH (RBC) [Entitic mass] 26.9 pg 27.0-32.0 [facility] Work Phone: Nucleated RBC/100 WBC (Bld) [Ratio] 0 % 0-5 [facility] Work Phone: MCHC Auto (RBC) [Mass/Vol]on 12-05-2021 MCHC (RBC) [Mass/Vol] 31.8 g/dL 32-36 [facility] Work Phone: No Panel Informationon 12-05 Estimated GFR (MDRD) Amer 133 mL/min >60 [facility] Work Phone: Comment on above: GFR Calc Estimated GFR (MDRD) Non-Af Amer 110 mL/min >60 [facility] Work Phone: Comment on above: Non- GFR Calc Platelets bldon 12-05-2021 Platelets (Bld) [#/Vol] 363 10*3/uL 150-450 [facility] Work Phone: Serum or plasma calcium oral urement (mass/volume)on 12-05-2021 Calcium [Mass/Vol] 9.4 mg/dL 8.5-10.1 [facility] Work Phone: Serum or plasma creatinine m easurement (mass/volume)on 12-05-2021 Creatinine [Mass/Vol] 0.75 mg/dL 0.70-1.30 [facility] Work Phone: Comment on above: The validity of the calculated GFR & GFRAA in patients over 70 years has not been determined. Clinical correlation is essential. Serum or plasma urea nitroge n measurement (mass/volume)on 12-05-2021 Urea nitrogen [Mass/Vol] 19 mg/dL 7-18 [facility] Work Phone: Thin prep Papanicolaou smear with manual screeningon 12-05-2021 Thin prep Papanicolaou smear with manual screening 4 5-15 [facility] Work Phone: Basophil percentageon 2021 Basophil percentage 0 SEEN /hpf 0-5 [facility] Work Phone: Chloride [Moles/Vol] 104 mmol/L 98-107 [facility] Work Phone: Glucose [Mass/Vol] 90 mg/dL 74-106 [facility] Work Phone: Potassium [Moles/Vol] 3.7 mmol/L 3.5-5.1 [facility] Work Phone: Comment on above: Slight Hemolysis, Re sult may be falsely increased. Sodium [Moles/Vol] 138 mmol/L 136-145 [facility] Work Phone: WBC (Bld) [#/Vol] 10.7 10*3/uL 4.4-11.0 [facility] Work Phone: Bilirubin Test strip Ql (U)o n 12-01-2021 Bilirubin Ql (U) Negative Negative [facility] Work Phone: Blood erythrocytes count (nu mber/volume)on 12-01-2021 RBC (Bld) [#/Vol] 4.33 10*6/uL 4.6-6.2 [facility] Work Phone: Blood hemoglobin measurement (mass/volume)on 12-01-2021 Hemoglobin (Bld) [Mass/Vol] 11.6 g/dL 13.0-16.5 [facility] Work Phone: Blood platelet mean volumeon 12-01-2021 Platelet mean volume (Bld) [Entitic vol] 11.2 fL 6.2-12.0 [facility] Work Phone: Determination of erythrocyte mean corpuscular volume (MCV)on 12-01-2021 MCV (RBC) [Entitic vol] 85.2 fL 80-94 [facility] Work Phone: Hematocrit Auto (Bld) [Volum e fraction]on 12-01-2021 Hematocrit (Bld) [Volume fraction] 36.9 % 40-54 [facility] Work Phone: Ketones Test strip Ql (U)on 12-01-2021 Ketones Ql (U) Negative Negative [facility] Work Phone: Laboratory - Chemistry and C hemistry - challengeon 12-01-2021 CO2 [Moles/Vol] 27.0 mmol/L 21.0-32.0 [facility] Work Phone: Urea nitrogen/Creatinine [Mass ratio] 24.0 mg/mg 10-20 [facility] Work Phone: Laboratory - Coagulationon 0 12-01-2021 INR Coag (Bld) [Relative time] 1.6 {INR} [facility] Work Phone: Comment on above: Critical Value > 4.0 Laboratory - Hematology and Cell countson 12-01-2021 Erythrocyte distribution width (RBC) [Entitic vol] 47.9 fL 35.1-43.9 [facility] Work Phone: Erythrocyte distribution width (RBC) [Ratio] 15.5 % 11.6-14.6 [facility] Work Phone: MCH (RBC) [Entitic mass] 26.8 pg 27.0-32.0 [facility] Work Phone: MCHC Auto (RBC) [Mass/Vol]on 12-01-2021 MCHC (RBC) [Mass/Vol] 31.4 g/dL 32-36 [facility] Work Phone: Mucus LM Ql (Urine sed)on Mucus Ql (Urine sed) 0 SEEN /hpf [facility] Work Phone: Nitrite Test strip Ql (U)on 12-01-2021 Nitrite Ql (U) Negative Negative [facility] Work Phone: No Panel Informationon 12-01 Estimated GFR (MDRD) Amer 133 mL/min >60 [facility] Work Phone: Comment on above: GFR Calc Estimated GFR (MDRD) Non-Af Amer 110 mL/min >60 [facility] Work Phone: Comment on above: Non- GFR Calc Platelets bldon 12-01-2021 Platelets (Bld) [#/Vol] 336 10*3/uL 150-450 [facility] Work Phone: Protein Test strip Ql (U)on 12-01-2021 Protein Ql (U) 30 mg/dl Negative [facility] Work Phone: Serum or plasma calcium oral urement (mass/volume)on 12-01-2021 Calcium [Mass/Vol] 9.4 mg/dL 8.5-10.1 [facility] Work Phone: Serum or plasma creatinine m easurement (mass/volume)on 12-01-2021 Creatinine [Mass/Vol] 0.75 mg/dL 0.70-1.30 [facility] Work Phone: Comment on above: The validity of the calculated GFR & GFRAA in patients over 70 years has not been determined. Clinical correlation is essential. Serum or plasma urea nitroge n measurement (mass/volume)on 12-01-2021 Urea nitrogen [Mass/Vol] 18 mg/dL 7-18 [facility] Work Phone: Squamous epithelial cells de tection in urine sediment by light microscopyon 12-01-2021 Epithelial cells.squamous LM Ql (Urine sed) 0-5 SEEN /hpf 0-5 [facility] Work Phone: Thin prep Papanicolaou smear with manual screeningon 12-01-2021 Thin prep Papanicolaou smear with manual screening 7 5-15 [facility] Work Phone: Urine blood detectionon 11-05 RBC Ql (U) Negative Negative [facility] Work Phone: RBC Ql (U) 0 SEEN /hpf 0-5 [facility] Work Phone: Urine clarityon 12-01-2021 Clarity (U) Clear Clear [facility] Work Phone: Urine color determinationon 12-01-2021 Color (U) Yellow Yellow [facility] Work Phone: Urine glucose detectionon Glucose Ql (U) 50 mg/dl Normal [facility] Work Phone: Urine leukocyte esterase det ection by dipstickon 12-01-2021 Leukocyte esterase Test strip Ql (U) Negative Negative [facility] Work Phone: Urine pHon 12-01-2021 pH (U) 6.0 [pH] 5.0 - 8.0 [facility] Work Phone: Urine sediment bacteria coun t by microscopy (number/high power field)on 12-01-2021 Bacteria LM.HPF (Urine sed) [#/Area] 0 /[HPF] None Seen [facility] Work Phone: Urine sediment yeast count b y microscopy (number/high powered field)on 12-01-2021 Yeast LM.HPF (Urine sed) [#/Area] 2 /[HPF] None Seen [facility] Work Phone: Urine specific gravity measu rementon 12-01-2021 Specific gravity (U) [Rel density] 1.010 1.002-1.030 [facility] Work Phone: Urobilinogen Auto test strip Ql (U)on 12-01-2021 Urobilinogen Ql (U) Normal mg/dl Normal [facility] Work Phone: Whole blood prothrombin time on 12-01-2021 PT Coag (Bld) [Time] 19.8 s 11.7-14.9 [facility] Work Phone: Laboratory - Coagulationon 0 11-28-2021 INR Coag (Bld) [Relative time] 1.6 {INR} [facility] Work Phone: Comment on above: Critical Value > 4.0 Whole blood prothrombin time on 11-28-2021 PT Coag (Bld) [Time] 18.8 s 11.7-14.9 [facility] Work Phone: INR in Blood by Coagulation assayon 11-23-2021 INR Coag (Bld) [Relative time] 2.7 {INR} [facility] Work Phone: Laboratory - Coagulationon 0 11-23-2021 PT Coag (PPP) [Time] 28.0 s 11.7-14.9 [facility] Work Phone: Laboratory - Coagulationon 0 11-22-2021 INR Coag (Bld) [Relative time] 3.8 {INR} [facility] Work Phone: Comment on above: Critical Value > 4.0 Whole blood prothrombin time on 11-22-2021 PT Coag (Bld) [Time] 42.8 s 11.7-14.9 [facility] Work Phone: INR in Blood by Coagulation assayon 11-21-2021 INR Coag (Bld) [Relative time] 3.9 {INR} [facility] Work Phone: Laboratory - Coagulationon 0 11-21-2021 PT Coag (PPP) [Time] 37.7 s 11.7-14.9 [facility] Work Phone: Whole blood prothrombin time on 11-21-2021 PT Coag (Bld) [Time] 45.5 s 11.7-14.9 [facility] Work Phone: INR in Blood by Coagulation assayon 11-14-2021 INR Coag (Bld) [Relative time] 3.1 {INR} [facility] Work Phone: Laboratory - Coagulationon 0 11-14-2021 PT Coag (PPP) [Time] 31.4 s 11.7-14.9 [facility] Work Phone: Laboratory - Coagulationon 0 11-08-2021 INR Coag (Bld) [Relative time] 2.5 {INR} [facility] Work Phone: Comment on above: Critical Value > 4.0 Whole blood prothrombin time on 11-08-2021 PT Coag (Bld) [Time] 29.0 s 11.7-14.9 [facility] Work Phone: Basophil percentageon 2021 Chloride [Moles/Vol] 106 mmol/L 98-107 [facility] Work Phone: Glucose [Mass/Vol] 100 mg/dL 74-106 [facility] Work Phone: Comment on above: Fasting Glucose resu lt from 100 to 125 mg/dL suggests IMPAIRED HOMEOSTASIS per A.D.A. criteria. Potassium [Moles/Vol] 3.7 mmol/L 3.5-5.1 [facility] Work Phone: Sodium [Moles/Vol] 140 mmol/L 136-145 [facility] Work Phone: WBC (Bld) [#/Vol] 8.8 10*3/uL 4.4-11.0 [facility] Work Phone: Blood erythrocytes count (nu mber/volume)on 11-04-2021 RBC (Bld) [#/Vol] 4.05 10*6/uL 4.6-6.2 [facility] Work Phone: Blood hemoglobin measurement (mass/volume)on 11-04-2021 Hemoglobin (Bld) [Mass/Vol] 11.1 g/dL 13.0-16.5 [facility] Work Phone: Blood platelet mean volumeon 11-04-2021 Platelet mean volume (Bld) [Entitic vol] 10.8 fL 6.2-12.0 [facility] Work Phone: Determination of erythrocyte mean corpuscular volume (MCV)on 11-04-2021 MCV (RBC) [Entitic vol] 86.9 fL 80-94 [facility] Work Phone: Hematocrit Auto (Bld) [Volum e fraction]on 11-04-2021 Hematocrit (Bld) [Volume fraction] 35.2 % 40-54 [facility] Work Phone: INR in Blood by Coagulation assayon 11-04-2021 INR Coag (Bld) [Relative time] 1.8 {INR} [facility] Work Phone: Laboratory - Chemistry and C hemistry - challengeon 11-04-2021 CO2 [Moles/Vol] 26.0 mmol/L 21.0-32.0 [facility] Work Phone: Urea nitrogen/Creatinine [Mass ratio] 18.3 mg/mg 10-20 [facility] Work Phone: Laboratory - Coagulationon 0 11-04-2021 PT Coag (PPP) [Time] 20.4 s 11.7-14.9 [facility] Work Phone: Laboratory - Hematology and Cell countson 11-04-2021 Erythrocyte distribution width (RBC) [Entitic vol] 48.1 fL 35.1-43.9 [facility] Work Phone: Erythrocyte distribution width (RBC) [Ratio] 15.0 % 11.6-14.6 [facility] Work Phone: MCH (RBC) [Entitic mass] 27.4 pg 27.0-32.0 [facility] Work Phone: MCHC Auto (RBC) [Mass/Vol]on 11-04-2021 MCHC (RBC) [Mass/Vol] 31.5 g/dL 32-36 [facility] Work Phone: No Panel Informationon 11-04 D-Dimer Quantitative (PE/DVT) 0.56 FEU/ug/m 0.27-0.49 [facility] Work Phone: Comment on above: D-Dimer ELEVATED (>0 .49): Additional studies and clinicalassessments are indicated to conclude diagnosis of:Deep Vein Thrombosis (DVT) or Pulmonary Embolism (PE) Estimated GFR (MDRD) Amer 155 mL/min >60 [facility] Work Phone: Comment on above: GFR Calc Estimated GFR (MDRD) Non-Af Amer 128 mL/min >60 [facility] Work Phone: Comment on above: Non- GFR Calc Troponin I High Sensitivity 11 pg/mL 3.0-78.0 [facility] Work Phone: Comment on above: Please Note: New Fadumo t Units and Gender Specific Reference Ranges. For more information see Policy Stat Procedure [place] High Sensitivity Troponin (TNIH) and attachments. Platelets bldon 11-04-2021 Platelets (Bld) [#/Vol] 364 10*3/uL 150-450 [facility] Work Phone: Serum or plasma C reactive p rotein measurement (mass/volume)on 11-04-2021 CRP [Mass/Vol] 31.90 mg/L 0.0-3.0 [facility] Work Phone: Comment on above: C-Reactive Protein ( CRP) provides useful information for thediagnosis, therapy and monitoring of inflammatory processesand associated diseases. For the evaluation of Relative Riskfor Cardiovascular Disease, a High Sensitivity CRP (HSCRP)should be ordered. Serum or plasma calcium oral urement (mass/volume)on 11-04-2021 Calcium [Mass/Vol] 9.1 mg/dL 8.5-10.1 [facility] Work Phone: Serum or plasma creatinine m easurement (mass/volume)on 11-04-2021 Creatinine [Mass/Vol] 0.66 mg/dL 0.70-1.30 [facility] Work Phone: Comment on above: The validity of the calculated GFR & GFRAA in patients over 70 years has not been determined. Clinical correlation is essential. Serum or plasma urea nitroge n measurement (mass/volume)on 11-04-2021 Urea nitrogen [Mass/Vol] 12 mg/dL 7-18 [facility] Work Phone: Thin prep Papanicolaou smear with manual screeningon 11-04-2021 Thin prep Papanicolaou smear with manual screening 8 5-15 [facility] Work Phone: Complete Urinalysison 2021 Appearance (U) Clear Normal Clear [facility] [employer] Comment on above: Result Comment: . Performed By: #### C UA2 ####[address] [place], [place] Bacteria Moderate Abnormal Negative [facility] [employer] Comment on above: Result Comment: . Performed By: #### C UA2 ####[facility] [employer] [id number] [place], [place] Bilirubin,Urine Negative Normal Negative [facility] [employer] Comment on above: Result Comment: . Performed By: #### C UA2 ####[address] [place], [place] Cast, Hyaline Negative Normal Negative [facility] [employer] Comment on above: Result Comment: . Performed By: #### C UA2 ####[address] [place], [place] Color (U) Yellow Normal Lt. Yellow [facility] [employer] Comment on above: Result Comment: . Performed By: #### C UA2 ####[id number] [place], [place] Glucose Ql (U) Normal Normal Normal (<70) [facility] [employer] Comment on above: Result Comment: . Performed By: #### C UA2 ####[address] [place], [place] Ketone,Urine Negative Normal Negative [facility] [employer] Comment on above: Result Comment: . Performed By: #### C UA2 ####[facility] [employer] [id number] [place], [place] Leukocytes,Urine Negative Normal Negative [facility] Comment on above: Result Comment: . Performed By: #### C UA2 ####[id number] [place], [place] Mucous Threads Few Normal Negative [facility] Comment on above: Result Comment: . Performed By: #### C UA2 ####[id number] [place], [place] Nitrites,Urine Negative Normal Negative [facility] Comment on above: Result Comment: . Performed By: #### C UA2 ####[address] [place], [place] Occult Blood,Urine 0.1 mg/dL Abnormal Negative [facility] Comment on above: Result Comment: . Performed By: #### C UA2 ####[address] [place], [place] pH,Urine 5.5 Normal 5.0-8.0 [facility] Comment on above: Result Comment: . Performed By: #### C UA2 ####[address] [place], [place] Protein (U) [Mass/Vol] 10 mg/dL Abnormal Negative [facility] Comment on above: Result Comment: . Performed By: #### C UA2 ####[address] [place], [place] RBC, Urine 26 - 50 Abnormal 0-2 [facility] Comment on above: Result Comment: . Performed By: #### C UA2 ####[address] [place], [place] Specific [place],Urine 1.023 Normal 1.005 - 1.030 [facility] Comment on above: Result Comment: . Performed By: #### C UA2 ####[address] [place], [place] Squamous Epithelial Negative Normal 3-5 [facility] Comment on above: Result Comment: . Performed By: #### C UA2 ####[address] [place], [place] Urobilinogen,Urine Normal Normal Normal (0-1) [facility] Comment on above: Result Comment: . Performed By: #### C UA2 ####[facility] [place] [address] WBC, Urine 0 - 2 Normal 0-5 [facility] Comment on above: Result Comment: . Performed By: #### C UA2 ####[facility] [place] [address] Urinalysison 11-01-2021 Appearance (U) Clear Clear NA [...] Protein (U) [Mass/Vol] 10 mg/dL Abnormal Negative [facility] Comment on above: . RBC, UA 26-50 Abnormal 0 - 2 /[HPF] [facility] Comment on above: . Specific [place], Urine 1.023 [facility] Comment on above: . Squam Epithel, UA Negative 3 - 5 /[HPF] [facility] Comment on above: . Urobilinogen, Urine Normal Normal ( 0-1) mg/dL [facility] Comment on above: . WBC, UA 0-2 0 - 5 /[HPF] [facility] Comment on above: . Test Performed by [facility], [address] [place] [address] [facility] Basic Metabolic Panelon 10-06 Anion gap [Moles/Vol] 6 mmol/L Normal 3-[address] [facility] Comment on above: Performed By: #### P T/AP, TROPN, BMP3, HEMDF #### [facility] [address] [place], [place] Calcium [Mass/Vol] 9.1 mg/dL Normal 8.4-10.4 [facility] Comment on above: Performed By: #### P T/AP, TROPN, BMP3, HEMDF #### [facility] [address] [place], [place] CO2 [Moles/Vol] 28 mmol/L Normal 22-30 [facility] Comment on above: Performed By: #### P T/AP, TROPN, BMP3, HEMDF #### [place] [place], [place] Glucose [Mass/Vol] 120 mg/dL High 70-100 [facility] Comment on above: Performed By: #### P T/AP, TROPN, BMP3, HEMDF #### [place] [place], [place] Urea nitrogen [Mass/Vol] 17 mg/dL Normal 7-17 [facility] Comment on above: Performed By: #### P T/AP, TROPN, BMP3, HEMDF #### [address] [place], [place] Creatinine [Mass/Vol] 0.65 mg/dL Normal 0.52-1.[address] [facility] Comment on above: Performed By: #### P T/AP, TROPN, BMP3, HEMDF #### [place] [place], [place] eGFR OTHER > 90.0 Normal >60 [facility] Comment on above: Result Comment: KDIG [...] #### P T/AP, TROPN, BMP3, HEMDF #### [address] GFR/1.73 sq M.predicted among blacks MDRD (S/P/Bld) [Vol rate/Area] mL/min/{1.73_m2} Normal >60 [facility] Comment on above: Performed By: #### P T/AP, TROPN, BMP3, HEMDF #### [address] Potassium [Moles/Vol] 3.8 mmol/L Normal 3.5-5.[address] [facility] Comment on above: Performed By: #### P T/AP, TROPN, BMP3, HEMDF #### [address] Chloride [Moles/Vol] 101 mmol/L Normal 98-107 [facility] Comment on above: Performed By: #### P T/AP, TROPN, BMP3, HEMDF #### [address] Sodium [Moles/Vol] 134 mmol/L Low 135-145 [facility] Comment on above: Performed By: #### P T/AP, TROPN, BMP3, HEMDF #### [address] Anion gap [Moles/Vol] 6 mmol/L 3 - 13 mmol/L [facility] Calcium [Mass/Vol] 9.1 mg/dL 8.4 - 10. 4 mg/dL [facility] Chloride [Moles/Vol] 101 mmol/L 98 - 10 7 mmol/L [facility] CO2 [Moles/Vol] 28 mmol/L 22 - 30 mmol/L [facility] Creatinine [Mass/Vol] 0.65 mg/dL 0.52 - 1.25 mg/dL [facility] EGFR IF NonAfrican Indonesian >90.0 >60 mL/min [facility] Comment on above: [...] - 17 mg/dL [facility] Test Performed by [id number] [place] [address] LAB [facility] CBC with Auto Differentialon 10-31-2021 [...] - 10.7 10*3/uL [facility] Test Performed by [facility], [address] [place] [id number] [place] [address] LAB [facility] CR Abdomen APon 10-31-2021 CR Abdomen AP Patient Name: ANDREW SIFUENTES Diagnostic Radiology ACCESSION EXAM DATE/TIME PROCEDURE ORDERING PROVIDER [id number] 10/31/2021 20:36 EDT CR Abdomen AP [id number] MARTÍNEZ CPT code 51502 Reason For Exam (CR Abdomen AP) evp shunt, 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 CHEST PORTABLE [...] Transcribed Date and Time: 10/31/2021 8:49 Normal [facility] CR Chest Portableon 11-01-19 22 CR Chest Portable [id number] Diagnostic Radiology ACCESSION EXAM DATE/TIME PROCEDURE ORDERING PROVIDER [id number] 10/31/2021 20:36 EDT CR Chest Portable [id number] MYRON GALINDO CPT code 49050 Reason For Exam (CR Chest Portable) AMS [...] Transcribed Date and Time: 10/31/2021 8:[address] [facility] [address] HEAD WO CONTRASTon 2021 Patient Name: [id number] Computed Tomography ACCESSION EXAM DATE/TIME PROCEDURE ORDERING PROVIDER [id number] 10/31/2021 20:[address] Head or Brain w/o 668131 -MYRON DURAN Contrast CPT code 38308 Reason For Exam (CT Head or Brain w/o Contrast) AMS, previous YOUTH ASSOCIATE shunt Report Examination: CT Head Clinical Information: AMS, previous YOUTH ASSOCIATE shunt Comparison: 10/26/2021, MRI 10/27/2021 Findings: Serial [...] J Transcribed Date and Time: 10/31/2021 8:54 [facility] RAD Carla Wong MD - 10/31/2021 Patient Name: [id number] Computed Tomography ACCESSION EXAM DATE/TIME PROCEDURE ORDERING PROVIDER [id number] 10/31/2021 20:[address] Head or Brain w/o [id number] -MYRON DURAN Contrast CPT code 87636 Reason For Exam (CT Head or Brain w/o Contrast) AMS, previous YOUTH ASSOCIATE shunt Report Examination: CT Head Clinical Information: AMS, previous YOUTH ASSOCIATE shunt Comparison: 10/26/2021, MRI 10/27/2021 Findings: Serial [...] w/o Contrast Patient Name: [id number] Computed Tomography ACCESSION EXAM DATE/TIME PROCEDURE ORDERING PROVIDER [id number] 10/31/2021 20:[address] Head or Brain w/o [id number] -MYRON DURAN Contrast CPT code 85145 Reason For Exam (CT Head or Brain w/o Contrast) AMS, previous YOUTH ASSOCIATE shunt Report Examination: CT Head Clinical Information: AMS, previous YOUTH ASSOCIATE shunt Comparison: 10/26/2021, MRI 10/27/2021 Findings: Serial [...] Transcribed Date and Time: 10/31/2021 8:54 Normal [facility] ED Provider Noteon ED Provider Note Emergency Department Encounter [facility] EMERGENCY DEPT Patient: Andrew Sifuentes : [...] [employer] Dante Kim MD 10/31/21 9681 Normal [facility] ED Provider Note [facility] EMERGENCY DEPT EMERGENCY DEPARTMENT ENCOUNTER Pt Name: Andrew Sifuentes Birthdate 1950 Date of evaluation: 10/31/2021 Provider: yMron Duran MD CHIEF COMPLAINT Chief Complaint Patient presents with ? Altered Mental Status Pt presents to ED via [facility] for complaint listed. Pt is [facility]. Pt's LKW was 1000 hours today. [...] have a history of hydrocephalus with a YOUTH ASSOCIATE shunt. 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 REVIEW OF [...] (HCC) ? Kidney stone ? Neuropathy ? YOUTH ASSOCIATE (ventriculoperitoneal) shunt status SURGICAL HISTORY Past Surgical [...] of Transportati (more content not included)... 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1950 Requested By: MYRON DURAN Order Number: [id number] Reading MD: Dante Kim Measurements Intervals Stanley Rate: 91 P: 41 TN: 154 QRS: 50 QRSD: 147 T: 8 QT: 385 QTc: 474 Interpretive Statements Sinus rhythm Right bundle branch block Electronically Signed On 10-31-2021 20:36:25 EDT by Dante Kim [facility] CARDIOLOGY Dante Kim M D - 10/31/2021 [facility] Test Date: 2021-10-31 Pat Name: ANDREW SIFUENTES Department: ER Room: 40 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1950 Requested By: MYRON DURAN Order Number: [id number] Reading MD: Dante Kim Measurements Intervals Stanley Rate: 91 P: 41 TN: 154 QRS: 50 QRSD: 147 T: 8 QT: 385 QTc: 474 Interpretive Statements Sinus rhythm Right bundle branch block Electronically Signed On 10-31-2021 20:36:25 EDT by Dante Kim [facility] Work Phone: EKG 12 Lead - Chest PainOrde red By: Dante Kim on 10-31-2021 [facility] Work Phone: Hemogram w/ Autodiffon 10-31 Abs Baso Cnt 0.1 10*3/uL Normal 0.0-0.2 [facility] Comment on above: Performed By: #### P T/AP, TROPN, BMP3, HEMDF #### [facility] [employer] [facility] [address] [place] [address] Abs Neutrophile Cnt 6.0 10*3/uL Normal 1.8-7.0 [facility] Comment on above: Performed By: #### P T/AP, TROPN, BMP3, HEMDF #### [address] [place], [place] Basophils/100 WBC (Bld) 1.1 % Normal 0.0-2.0 [facility] Comment on above: Performed By: #### P T/AP, TROPN, BMP3, HEMDF #### [address] [address] [place], [place] Eosinophils (Bld) [#/Vol] 0.2 10*3/uL Normal 0.0-0.5 [facility] Comment on above: Performed By: #### P T/AP, TROPN, BMP3, HEMDF #### [address] [address] [place], [place] Eosinophils/100 WBC (Bld) 2.3 % Normal 1.0-6.0 [facility] Comment on above: Performed By: #### P T/AP, TROPN, BMP3, HEMDF #### [address] Erythrocyte distribution width (RBC) [Ratio] 17.2 % High 11.5-14.5 [facility] Comment on above: Performed By: #### P T/AP, TROPN, BMP3, HEMDF #### [address] Granulocytes/100 WBC (Bld) 61.8 % Normal 40.0-80.0 [facility] Comment on above: Performed By: #### P T/AP, TROPN, BMP3, HEMDF #### [address] [place], [place] Hematocrit (Bld) [Volume fraction] 35.0 % Low 40.0-52.0 [facility] Comment on above: Performed By: #### P T/AP, TROPN, BMP3, HEMDF #### [place] [address] [place], [place] Hemoglobin (Bld) [Mass/Vol] 11.3 g/dL Low 13.0-18.0 [facility] Comment on above: Performed By: #### P T/AP, TROPN, BMP3, HEMDF #### [address] [place], [place] Lymphocytes (Bld) [#/Vol] 2.8 10*3/uL Normal 1.0-4.3 [facility] Comment on above: Performed By: #### P T/AP, TROPN, BMP3, HEMDF #### [address] [address] [place], [place] Lymphocytes/100 WBC (Bld) 29.2 % Normal 20.0-40.0 [facility] Comment on above: Performed By: #### P T/AP, TROPN, BMP3, HEMDF #### [address] MCH (RBC) [Entitic mass] 27.5 pg Normal 26.0-34.0 [facility] Comment on above: Performed By: #### P T/AP, TROPN, BMP3, HEMDF #### [address] [place] MCHC 32.3 % Normal 32.0-36.0 [facility] Comment on above: Performed By: #### P T/AP, TROPN, BMP3, HEMDF #### [address] MCV (RBC) [Entitic vol] 85.0 fL Normal 80.0-98.0 [facility] Comment on above: Performed By: #### P T/AP, TROPN, BMP3, HEMDF #### [address] [place] Monocytes (Bld) [#/Vol] 0.5 10*3/uL Normal 0.0-0.8 [facility] Comment on above: Performed By: #### P T/AP, TROPN, BMP3, HEMDF #### [address] [address] [place], [place] Monocytes/100 WBC (Bld) 5.6 % Normal 2.0-10.0 [facility] Comment on above: Performed By: #### P T/AP, TROPN, BMP3, HEMDF #### [facility] [address] [place], [place] Platelet mean volume (Bld) [Entitic vol] 8.6 fL Normal 7.4-12.4 [facility] Comment on above: Result Comment: MPV is a calculated measurement using platelet volume ratio. Performed By: #### P T/AP, TROPN, BMP3, HEMDF #### [facility] [address] [place] Platelets (Bld) [#/Vol] 348 10*3/uL Normal 140-440 [facility] Comment on above: Performed By: #### P T/AP, TROPN, BMP3, HEMDF #### [address] [place] RBC (Bld) [#/Vol] 4.12 10*6/uL Low 4.40-5.90 [facility] Comment on above: Performed By: #### P T/AP, TROPN, BMP3, HEMDF #### [facility] [address] [place] WBC (Bld) [#/Vol] 9.7 10*3/uL Normal 3.6-10.7 [facility] Comment on above: Performed By: #### P T/AP, TROPN, BMP3, HEMDF #### [facility] [address] [place], [place] Laboratory - Coagulationon 0 10-31-2021 INR Coag (Bld) [Relative time] 2.0 {INR} [facility] Work Phone: Comment on above: Critical Value > 4.0 No Panel Informationon 10-31 Radiology Study observation (narrative) [facility] Work Phone: PROTIME/INR & PTTon 11-01-19 aPTT Coag (Bld) [Time] 39.2 s High 20.0 - 30.5 s [facility] Comment on above: NOTE: The therapeuti c time for Heparin anticoagulation, based on Xa activity inhibition, is an APTT of 46-80 seconds. INR Coag (Bld) [Relative time] 1.9 {INR} High [facility] Comment on above: Recommended Anticoag [...] Interpretation and review of laboratory results Abnormal [facility] PT Coag (PPP) [Time] 19.8 s High 9.0 - 12.0 s [facility] Comment on above: . Test Performed by [facility], [address] [place] [id number] [facility] Protime AND APTTon 2 aPTT Coag (Bld) [Time] 39.2 s High 20.0-30.5 [facility] Comment on above: Result Comment: NOTE : The therapeutic time for Heparin anticoagulation, based on Xa activity inhibition, is an APTT of 46-80 seconds. Performed By: #### P T/AP, TROPN, BMP3, HEMDF #### [address] [address] INR 1.9 High 0.9-1.1 [facility] Comment on above: Result Comment: Harry [...] #### P T/AP, TROPN, BMP3, HEMDF #### [address] [address] PT Coag (PPP) [Time] 19.8 s High 9.0-12.0 [facility] Comment on above: Result Comment: . Performed By: #### P T/AP, TROPN, BMP3, HEMDF #### [address] [address] Troponin Ion 10-31-2021 Troponin I.cardiac [Mass/Vol] ng/mL Normal 0.000-0.034 [facility] Comment on above: Result Comment: . Performed By: #### P T/AP, TROPN, BMP3, HEMDF #### [facility] [address] [place] [address] Troponin x1on 10-31-2021 Troponin I.cardiac [Mass/Vol] ng/mL 0.000 - 0.034 ng/mL [facility] Comment on above: . Test Performed by [facility], [address] [place] [address] [facility] Whole blood prothrombin time on 10-31-2021 PT Coag (Bld) [Time] 23.7 s 11.7-14.9 [facility] Work Phone: XR ABDOMEN (KUB) (SINGLE AP VIEW)on 10-31-2021 [facility]: [id number]iology ACCESSION EXAM DATE/TIME PROCEDURE ORDERING PROVIDER [id number] 10/31/2021 20:36 EDT CR Abdomen AP [id number] -MYRON DURAN CPT code 36069 Reason For Exam (CR Abdomen AP) evp shunt, 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 CHEST PORTABLE [...] Radiology ACCESSION EXAM DATE/TIME PROCEDURE ORDERING PROVIDER [id number] 10/31/2021 20:36 EDT CR Abdomen AP [id number] -MYRON DURAN CPT code 63609 Reason For Exam (CR Abdomen AP) evp shunt, 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 CHEST PORTABLE [...] and Time: 10/31/2021 8:49 [facility] Work Phone: [facility] Work Phone: XR CHEST PORTABLEon 11-01-19 Patient Name: ANDREW SIFUENTES Diagnostic Radiology ACCESSION EXAM DATE/TIME PROCEDURE ORDERING PROVIDER [id number] 10/31/2021 20:36 EDT CR Chest Portable [id number] -MYRON DURAN CPT code 91766 Reason For Exam (CR Chest Portable) AMS [...] WENDELL Transcribed Date and Time: 10/31/2021 8:49 [facility] Huang Munoz MD - 10/31/2021 Patient Name: ANDREW SIFUENTES Diagnostic Radiology ACCESSION EXAM DATE/TIME PROCEDURE ORDERING PROVIDER [id number] 10/31/2021 20:36 EDT CR Chest Portable [id number] MYRON GALINDO CPT code 48231 Reason For Exam (CR Chest Portable) AMS [...] Transcribed Date and Time: 10/31/2021 8:49 [facility] Work Phone: XR CHEST PORTABLEOrdered By: Huang Reynoso on 10-31-2021 [facility] Work Phone: Lupus Anticoagulanton 2021 DRVVT Confirmation Test Not Applicable Negative ratio [facility] Work Phone: dRVVT Screen 38 [facility] Work Phone: Hex Phosph Neut Test Not Applicable Negative NA [facility] Work Phone: Interpretation and review of laboratory results Abnormal [facility] Work Phone: LUPUS INTERPRETATION See Note [facility] Work Phone: Comment on above: Lupus [...] has not already been performed. Performed by [facility], [address], [facility] [place] [address] [email or web address], Quiana Castro MD - Lab. Director Platelet Neutralization Not Applicable Negative NA [facility] Work Phone: PTT-D Heparin Neutralized 48 [facility] Work Phone: PTT-LA 55 High [facility] Work Phone: Reptilase Tm 17.6 <=21.9 sec [facility] Work Phone: [phone] Thrombin Time 25.3 High [facility] Work Phone: [facility] Work Phone: Lupus Anticoagulant Reflexiv e Panelon 10-29-2021 aPTT Coag (Bld) [Time] 55 s High 32-48 [facility] Comment on above: Performed By: #### C OVAG #### [facility] [address] [place] [address] aPTT Coag (Bld) [Time] 48 s Normal 32-48 [facility] Comment on above: Performed By: #### C OVAG #### [facility] [address] [place] [address] DRVVT 1:1 Mix Not Applicable Normal 33-44 [facility] Work Phone: Comment on above: Performed By: #### C OVAG #### [facility] [address] [place] [address] dRVVT Confirmation Not Applicable Normal Negative [facility] Comment on above: Performed By: #### C OVAG #### [facility] [address] [place] [address] dRVVT Screen 38 sec Normal 33-44 [facility] Comment on above: Performed By: #### C OVAG #### [facility] [address] [place] [address] Hexagonal Phospholipid Neutral Reflex Not Applicable Normal Negative [facility] Comment on above: Performed By: #### C OVAG #### [facility] [address] [place] [address] Lupus Anticoagulant Interpretation See Note Normal [facility] Comment on above: Result Comment: Lupu [...] has not already been performed. Performed by [facility], [address] [place] [id number] [email or web address], Quiana Castro MD - Lab. Director Performed By: #### C OVAG #### [facility] [address] [place] [address] Platelet Neutralization (PTT-D, Confirm) Not Applicable Normal Negative [facility] Comment on above: Performed By: #### C OVAG #### [facility] [address] [place] [address] PT Coag (PPP) [Time] 14.7 s Normal 12.0-15.5 [facility] Work Phone: Comment on above: Performed By: #### C OVAG #### [facility] [address] [place] [address] PTT-D 1:1 Mix Not Applicable Normal 32-48 [facility] Work Phone: Comment on above: Performed By: #### C OVAG #### [facility] [address] [place] [address] Reptilase Time 17.6 sec Normal <=21.9 [facility] Comment on above: Performed By: #### C OVAG #### [facility] [address] [place] [address] Thrombin Time 25.3 sec High 14.7-19.5 [facility] Comment on above: Performed By: #### C OVAG #### [facility] [address] [place] [address] POCT COVID-19, Antigenon SARS-CoV-2 Nucleocapsid Antigen Negative Negative NA [facility] Comment on above: A negative result does not rule out the possibility of SARS-CoV-2 infection. NAAT-based methods should be considered for symptomatic patients presenting greater than seven days after onset of symptoms. Method: Lateral flow immunoassay. Fact sheets for healthcare providers and patients can be found at the following sites: https://www.fda.gov/media/786277/download https://www.fda.gov/media/434100/download Test Performed by [facility], [address] [facility] [place] [id number] [place] [address] LAB [facility] Prothrombin Timeon INR 2.7 High 0.9-1.1 [facility] Comment on above: Result Comment: Harry [...] Infarction Performed By: #### P T #### [facility] [address] [place] [address] PT Coag (PPP) [Time] 27.4 s High 9.0-12.0 [facility] Comment on above: Result Comment: . Performed By: #### P T #### [facility] [address] [place] [address] Protime-INRon 10-29-2021 INR Coag (Bld) [Relative time] 2.7 {INR} High [facility] Work Phone: Comment on above: [...] Interpretation and review of laboratory results Abnormal [facility] Work Phone: PT Coag (PPP) [Time] 27.4 s High 9.0 - 12.0 s [facility] Work Phone: Comment on above: . Test Performed by [facility] [employer] [facility], [address], [place], [place] [address] [facility] Work Phone: [phone] SARS-CoV-2 Antigenon 022 SARS-CoV-2 Antigen Negative Normal Negative [facility] Comment on above: Result Comment: A negative result does not rule out the possibility of SARS-CoV-2 infection. NAAT-based methods should be considered for symptomatic patients presenting greater than seven days after onset of symptoms. Method: Lateral flow immunoassay. Fact sheets for healthcare providers and patients can be found at the following sites: https://www.Jott.gov/media/953870/download https://www.Jott.gov/media/830574/download Performed By: #### C OVAG #### [facility] [employer] [facility] [address] [place] [address] CBCon 10-28-2021 Hematocrit (Bld) [Volume fraction] 33.4 % Low 40.0 - 52.0 % [facility] Work Phone: Hemoglobin (Bld) [Mass/Vol] 11.0 g/dL Low 13.0 - 18.0 g/dL [facility] Work Phone: Interpretation and review of laboratory results Abnormal [facility] Work Phone: MCH (RBC) [Entitic mass] 27.8 pg 26.0 - 34.0 pg [facility] Work Phone: MCHC (RBC) [Mass/Vol] 32.8 % 32.0 - 36.0 % [facility] Work Phone: MCV (RBC) [Entitic vol] 84.8 fL 80.0 - 98.0 fL [facility] Work Phone: Platelet distribution width (Bld) [Ratio] 17.1 % High 11.5 - 14.5 % [employer] Work Phone: Platelet mean volume (Bld) [Entitic vol] 8.3 fL 7.4 - 12.4 fL [employer] Work Phone: Comment on above: MPV is a calculated measurement using platelet volume ratio. Platelets (Bld) [#/Vol] 344 10*3/uL 140 - 440 10*3/uL [employer] Work Phone: [phone] RBC (Bld) [#/Vol] 3.94 10*6/uL Low 4.40 - 5.9 0 10*6/uL [employer] Work Phone: [phone] WBC (Bld) [#/Vol] 10.0 10*3/uL 3.6 - 10.7 10*3/uL [employer] Work Phone: Test Performed by [facility], [address] [place], [place] [id number] [place] [address] LAB [facility] Work Phone: Comp Metabolic Panelon 10-28 ALP [Catalytic activity/Vol] 103 U/L Normal 38-126 [facility] Comment on above: Performed By: #### C A19O, LUPUS #### The performing lab is in the report. #### NSEO #### [facility] #### HEMDF, LDH3, BMP3, MG3, PT, CEA2 #### [facility] [address] [place] [address] #### B2GPM, B2GPA, B2GPG #### [facility] [address] [place] [address] ALT [Catalytic activity/Vol] 26 U/L Normal 0-49 [facility] Comment on above: Result Comment: The ALT test is performed by an updated assay method. Please note that the reference intervals have been changed and are now sex specific. Performed By: #### C A19O, LUPUS #### The performing lab is in the report. #### NSEO #### [facility] #### HEMDF, LDH3, BMP3, MG3, PT, CEA2 #### [facility] [address] [place] [address] #### B2GPM, B2GPA, B2GPG #### [address] AST [Catalytic activity/Vol] 24 U/L Normal 15-46 [facility] Comment on above: Performed By: #### C A19O, LUPUS #### The performing lab is in the report. #### NSEO #### [facility] #### HEMDF, LDH3, BMP3, MG3, PT, CEA2 #### [place] [address] [place] #### B2GPM, B2GPA, B2GPG #### [address] Calcium [Mass/Vol] 9.1 mg/dL Normal 8.4-10.4 [facility] Comment on above: Performed By: #### C A19O, LUPUS #### The performing lab is in the report. #### NSEO #### [facility] #### HEMDF, LDH3, BMP3, MG3, PT, CEA2 #### [address] [place] [address] #### B2GPM, B2GPA, B2GPG #### [address] Glucose [Mass/Vol] 117 mg/dL High 70-100 [facility] Comment on above: Performed By: #### C A19O, LUPUS #### The performing lab is in the report. #### NSEO #### [facility] #### HEMDF, LDH3, BMP3, MG3, PT, CEA2 #### [place] [address] [place] [address] #### B2GPM, B2GPA, B2GPG #### [address] Urea nitrogen [Mass/Vol] 16 mg/dL Normal 7-17 [facility] Comment on above: Performed By: #### C A19O, LUPUS #### The performing lab is in the report. #### NSEO #### [facility] #### HEMDF, LDH3, BMP3, MG3, PT, CEA2 #### [place] [address] [place] [address] #### B2GPM, B2GPA, B2GPG #### [address] Anion gap [Moles/Vol] 5 mmol/L Normal 3-[address] [facility] Comment on above: Performed By: #### C A19O, LUPUS #### The performing lab is in the report. #### NSEO #### [facility] #### HEMDF, LDH3, BMP3, MG3, PT, CEA2 #### [place] [address] [facility] [place] [address] #### B2GPM, B2GPA, B2GPG #### [address] Bilirubin [Mass/Vol] 0.4 mg/dL Normal 0.2-1.3 [facility] Comment on above: Performed By: #### C A19O, LUPUS #### The performing lab is in the report. #### NSEO #### [facility] #### HEMDF, LDH3, BMP3, MG3, PT, CEA2 #### [place] [address] [place] [address] #### B2GPM, B2GPA, B2GPG #### [address] CO2 [Moles/Vol] 29 mmol/L Normal 22-30 [facility] Comment on above: Performed By: #### C A19O, LUPUS #### The performing lab is in the report. #### NSEO #### [facility] #### HEMDF, LDH3, BMP3, MG3, PT, CEA2 #### [place] [address] [place] [address] #### B2GPM, B2GPA, B2GPG #### [address] Creatinine [Mass/Vol] 0.71 mg/dL Normal 0.52-1.[address] [facility] Comment on above: Performed By: #### C A19O, LUPUS #### The performing lab is in the report. #### NSEO #### [facility] #### HEMDF, LDH3, BMP3, MG3, PT, CEA2 #### [facility] [address] [place], [place] #### B2GPM, B2GPA, B2GPG #### [address] eGFR OTHER > 90.0 Normal >60 [facility] Comment on above: Result Comment: KDIG [...] LDH3, BMP3, MG3, PT, CEA2 #### [facility] [address] [facility] [place] [address] #### B2GPM, B2GPA, B2GPG #### [address] GFR/1.73 sq M.predicted among blacks MDRD (S/P/Bld) [Vol rate/Area] mL/min/{1.73_m2} Normal >60 [facility] Comment on above: Performed By: #### C A19O, LUPUS #### The performing lab is in the report. #### NSEO #### [facility] #### HEMDF, LDH3, BMP3, MG3, PT, CEA2 #### [facility] [address] [place] [address] #### B2GPM, B2GPA, B2GPG #### [address] Protein [Mass/Vol] 7.1 g/dL Normal 6.3-8.2 [facility] Comment on above: Performed By: #### C A19O, LUPUS #### The performing lab is in the report. #### NSEO #### [facility] #### HEMDF, LDH3, BMP3, MG3, PT, CEA2 #### [facility] [address] [place] [address] #### B2GPM, B2GPA, B2GPG #### [address] Potassium [Moles/Vol] 3.5 mmol/L Normal 3.5-5.[address] [facility] Comment on above: Performed By: #### C A19O, LUPUS #### The performing lab is in the report. #### NSEO #### [facility] #### HEMDF, LDH3, BMP3, MG3, PT, CEA2 #### [facility] [address] [place] [address] #### B2GPM, B2GPA, B2GPG #### [address] Sodium [Moles/Vol] 138 mmol/L Normal 135-145 [facility] Comment on above: Performed By: #### C A19O, LUPUS #### The performing lab is in the report. #### NSEO #### [facility] #### HEMDF, LDH3, BMP3, MG3, PT, CEA2 #### [facility] [address] [place] [address] #### B2GPM, B2GPA, B2GPG #### [address] Albumin [Mass/Vol] 3.7 g/dL Normal 3.5-5.0 [facility] Comment on above: Performed By: #### C A19O, LUPUS #### The performing lab is in the report. #### NSEO #### [facility] #### HEMDF, LDH3, BMP3, MG3, PT, CEA2 #### [facility] [address] [place] [address] #### B2GPM, B2GPA, B2GPG #### [address] Chloride [Moles/Vol] 104 mmol/L Normal 98-107 [facility] Comment on above: Performed By: #### C A19O, LUPUS #### The performing lab is in the report. #### NSEO #### [facility] #### HEMDF, LDH3, BMP3, MG3, PT, CEA2 #### [facility] [address] [place] [address] #### B2GPM, B2GPA, B2GPG #### [address] Comprehensive Metabolic Pane kiel 10-28-2021 Albumin [Mass/Vol] 3.7 g/dL 3.5 - 5.0 g/dL [facility] Work Phone: ALP (Bld) [Catalytic activity/Vol] 103 U/L 38 - 126 U/L [facility] Work Phone: ALT [Catalytic activity/Vol] 26 U/L 0 - 49 U/L [facility] Work Phone: Comment on above: [...] - 10. 4 mg/dL [facility] Work Phone: [phone] Chloride [Moles/Vol] 104 mmol/L 98 - 10 7 mmol/L [facility] Work Phone: CO2 [Moles/Vol] 29 mmol/L 22 - 30 mmol/L [facility] Work Phone: Creatinine [Mass/Vol] 0.71 mg/dL 0.52 - 1.25 mg/dL [facility] Work Phone: EGFR IF NonAfrican Indonesian >90.0 >60 mL/min [facility] Work Phone: Comment on above: KDIGO [...] g/dL 6.3 - 8.2 g/dL [facility] Work Phone: GFR/1.73 sq M.predicted among blacks MDRD (S/P/Bld) [Vol rate/Area] mL/min/{1.73_m2} >60 mL/min [facility] Work Phone: Glucose [Mass/Vol] 117 mg/dL High 70 - 100 mg/dL [facility] Work Phone: Interpretation and review of laboratory results Abnormal [facility] Work Phone: Potassium [Moles/Vol] 3.5 mmol/L 3.5 - 5.1 mmol/L [facility] Work Phone: Sodium [Moles/Vol] 138 mmol/L 135 - 145 mmol/L [facility] Work Phone: Urea nitrogen (BldV) [Mass/Vol] 16 mg/dL 7 - 17 mg/dL [facility] Work Phone: Test Performed by [facility], [address] [place] [id number] [place] [address] LAB [facility] Work Phone: Hemogramon 10-28-2021 Erythrocyte distribution width (RBC) [Ratio] 17.1 % High 11.5-14.5 [facility] Comment on above: Performed By: #### C A19O, LUPUS #### The performing lab is in the report. #### NSEO #### [facility] #### HEMDF, LDH3, BMP3, MG3, PT, CEA2 #### [address] [address] #### B2GPM, B2GPA, B2GPG #### [address] [address] Hematocrit (Bld) [Volume fraction] 33.4 % Low 40.0-52.0 [facility] Comment on above: Performed By: #### C A19O, LUPUS #### The performing lab is in the report. #### NSEO #### [facility] #### HEMDF, LDH3, BMP3, MG3, PT, CEA2 #### [address] [address] #### B2GPM, B2GPA, B2GPG #### [address] Hemoglobin (Bld) [Mass/Vol] 11.0 g/dL Low 13.0-18.0 [facility] Comment on above: Performed By: #### C A19O, LUPUS #### The performing lab is in the report. #### NSEO #### [facility] #### HEMDF, LDH3, BMP3, MG3, PT, CEA2 #### [place] [address] [place], [place] #### B2GPM, B2GPA, B2GPG #### [address] MCH (RBC) [Entitic mass] 27.8 pg Normal 26.0-34.0 [facility] Comment on above: Performed By: #### C A19O, LUPUS #### The performing lab is in the report. #### NSEO #### [facility] #### HEMDF, LDH3, BMP3, MG3, PT, CEA2 #### [address] [place], [place] #### B2GPM, B2GPA, B2GPG #### [address] MCHC 32.8 % Normal 32.0-36.0 [facility] Comment on above: Performed By: #### C A19O, LUPUS #### The performing lab is in the report. #### NSEO #### [facility] #### HEMDF, LDH3, BMP3, MG3, PT, CEA2 #### [address] [place] #### B2GPM, B2GPA, B2GPG #### [address] MCV (RBC) [Entitic vol] 84.8 fL Normal 80.0-98.0 [facility] Comment on above: Performed By: #### C A19O, LUPUS #### The performing lab is in the report. #### NSEO #### [facility] #### HEMDF, LDH3, BMP3, MG3, PT, CEA2 #### [facility] [address] [place] [address] #### B2GPM, B2GPA, B2GPG #### [address] Platelet mean volume (Bld) [Entitic vol] 8.3 fL Normal 7.4-12.4 [facility] Comment on above: Result Comment: MPV is a calculated measurement using platelet volume ratio. Performed By: #### C A19O, LUPUS #### The performing lab is in the report. #### NSEO #### [facility] #### HEMDF, LDH3, BMP3, MG3, PT, CEA2 #### [address] [facility] [place] [place] #### B2GPM, B2GPA, B2GPG #### [address] Platelets (Bld) [#/Vol] 344 10*3/uL Normal 140-440 [facility] Comment on above: Performed By: #### C A19O, LUPUS #### The performing lab is in the report. #### NSEO #### [facility] #### HEMDF, LDH3, BMP3, MG3, PT, CEA2 #### [address] [facility] [place] #### B2GPM, B2GPA, B2GPG #### [address] RBC (Bld) [#/Vol] 3.94 10*6/uL Low 4.40-5.90 [facility] Comment on above: Performed By: #### C A19O, LUPUS #### The performing lab is in the report. #### NSEO #### [facility] #### HEMDF, LDH3, BMP3, MG3, PT, CEA2 #### [address] [place] [address] #### B2GPM, B2GPA, B2GPG #### [facility] [address] [place] [address] WBC (Bld) [#/Vol] 10.0 10*3/uL Normal 3.6-10.7 [facility] Comment on above: Performed By: #### C A19O, LUPUS #### The performing lab is in the report. #### NSEO #### [facility] #### HEMDF, LDH3, BMP3, MG3, PT, CEA2 #### [facility] [address] [place] [address] #### B2GPM, B2GPA, B2GPG #### [facility] [address], [place] Neuron Specific Enolaseon Neuron Specific Enolase 20.8 Normal [facility] Comment on above: Result Comment: Neur on Specific Enolase, Serum 20.8 ng/mL H (Ref Interval: <=12.7) NSE and Hgb are elevated in the specimen. The elevated NSE may be a result of hemolysis as NSE is expressed in red blood cells. Interpret results with caution. INTERPRETIVE INFORMATION: Neuron Specific Enolase in Serum This assay is performed using the [employer] NSE Kryptor Immunoassay. Results obtained with different assay methods or kits cannot be used interchangeably. Results cannot be interpreted as absolute evidence of the presence or absence of malignant disease. This test was developed and its performance characteristics determined by [employer]. It has not been cleared or approved by the [place] Food and Drug Administration. This test was performed in a CLIA certified laboratory and is intended for clinical purposes. Performed By: #### C OVAG #### [facility] [address] [place] [address] Neuron specific enolase (NSE )on 10-28-2021 Neuron Specific Enolase 20.8 [facility] Work Phone: Comment on above: Neuron Specific Enol ase, Serum 20.8 ng/mL H (Ref Interval: <=12.7) NSE and Hgb are elevated in the specimen. The elevated NSE may be a result of hemolysis as NSE is expressed in red blood cells. Interpret results with caution. INTERPRETIVE INFORMATION: Neuron Specific Enolase in Serum This assay is performed using the [employer] NSE Kryptor Immunoassay. Results obtained with different assay methods or kits cannot be used interchangeably. Results cannot be interpreted as absolute evidence of the presence or absence of malignant disease. This test was developed and its performance characteristics determined by [facility]. It has not been cleared or approved by the [place] Food and Drug Administration. This test was performed in a CLIA certified laboratory and is intended for clinical purposes. 1 [facility] Work Phone: Prothrombin Timeon 2 INR 3.1 High 0.9-1.1 [facility] Comment on above: Result Comment: Harry [...] LDH3, BMP3, MG3, PT, CEA2 #### [facility] [address] [place] [address] #### B2GPM, B2GPA, B2GPG #### [address] [address] PT Coag (PPP) [Time] 30.8 s High 9.0-12.0 [facility] Comment on above: Result Comment: . Performed By: #### C A19O, LUPUS #### The performing lab is in the report. #### NSEO #### [facility] #### HEMDF, LDH3, BMP3, MG3, PT, CEA2 #### [facility] [address] [place] [address] #### B2GPM, B2GPA, B2GPG #### [address] [address] Protime-INRon 10-28-2021 INR Coag (Bld) [Relative time] 3.1 {INR} High [facility] Work Phone: Comment on above: [...] Interpretation and review of laboratory results Abnormal [facility] Work Phone: PT Coag (PPP) [Time] 30.8 s High 9.0 - 12.0 s [employer] Work Phone: Comment on above: . Test Performed by [facility], [address] [place], [place] [id number] [place] [address] LAB [facility] Work Phone: MRI BRAIN WO CONTRASTon 10-06 Patient Name: ANDREW SIFUENTES Magnetic Resonance Imaging ACCESSION EXAM DATE/TIME PROCEDURE ORDERING PROVIDER [id number] 10/27/2021 13:14 EDT MRI Brain w/o Contrast UNASSIGNED, UNASSIGNED CPT code 56338 Reason For Exam (MRI Brain w/o Contrast) stroke Patient has YOUTH ASSOCIATE shunt in place, please follow Radiology protocol [...] OSAMA Transcribed Date and Time: 10/27/2021 2:39 [facility] Venus Loyd MD - 10/27/2021 Patient Name: ANDREW SIFUENTES Magnetic Resonance Imaging ACCESSION EXAM DATE/TIME PROCEDURE ORDERING PROVIDER [id number] 10/27/2021 13:14 EDT MRI Brain w/o Contrast UNASSIGNED, UNASSIGNED CPT code 07954 Reason For Exam (MRI Brain w/o Contrast) stroke Patient has YOUTH ASSOCIATE shunt in place, please follow Radiology protocol [...] Brain w/o Contrast Patient Name: ANDREW VELAZQUEZ [facility]#: [id number] Magnetic Resonance Imaging ACCESSION EXAM DATE/TIME PROCEDURE ORDERING PROVIDER [id number] 10/27/2021 13:14 EDT MRI Brain w/o Contrast UNASSIGNED, UNASSIGNED CPT code 19235 Reason For Exam (MRI Brain w/o Contrast) stroke Patient has YOUTH ASSOCIATE shunt in place, please follow Radiology protocol [...] Transcribed Date and Time: 10/27/2021 2:39 Normal [facility] Prothrombin Timeon INR 2.1 High 0.9-1.1 [facility] Comment on above: Result Comment: Harry [...] Infarction Performed By: #### P T #### [facility] [address] [place] [address] PT Coag (PPP) [Time] 21.9 s High 9.0-12.0 [facility] Work Phone: Comment on above: . Result Comment: . Performed By: #### P T #### [facility] [address] [place] [address] Protime-INRon 10-27-2021 INR Coag (Bld) [Relative time] 2.1 {INR} High [facility] Work Phone: Comment on above: [...] Interpretation and review of laboratory results Abnormal [facility] Work Phone: Test Performed by [facility], [address] [place], [place], [place] [address] [facility] Work Phone: CT HEAD WO CONTRASTon 2021 Patient Name: ANDREW SIFUENTES Computed Tomography ACCESSION EXAM DATE/TIME PROCEDURE ORDERING PROVIDER [id number] 10/26/2021 11:[address] Head or Brain w/o JUNIE PINEDA ALLISON Contrast CPT code 93971 Reason For Exam (CT Head or Brain w/o Contrast) hydrocephalus. thank you Report CLINICAL INFORMATION: Hydrocephalus. Shunt. 3 mm axial cuts through the head are obtained without IV contrast. The examination is compared to a previous study dated 06/29/2014. FINDINGS: Old YOUTH ASSOCIATE shunt tubing is noted bilaterally. The new [...] are clear. IMPRESSION: 1. Old and new YOUTH ASSOCIATE shunt tubing. 2. No hydrocephalus. 3. Atrophy and evidence of small-vessel ischemic disease. 4. No CT evidence of an acute intracranial process. Report Dictated on --- Final --- Dictating Physician: MD SOLANO JEFFREY Signed Date and Time: 10/26/2021 11:42 am Signed by: MD SOLANO JEFFREY Transcribed Date and Time: 10/26/2021 11:43 [facility] Albert Solano MD - 10/26/2021 [id number] Computed Tomography ACCESSION EXAM DATE/TIME PROCEDURE ORDERING PROVIDER [id number] 10/26/2021 11:[address] Head or Brain w/o JUNIE PINEDA ALLISON Contrast CPT code 12885 Reason For Exam (CT Head or Brain w/o Contrast) hydrocephalus. thank you Report CLINICAL INFORMATION: Hydrocephalus. Shunt. 3 mm axial cuts through the head are obtained without IV contrast. The examination is compared to a previous study dated 06/29/2014. FINDINGS: Old YOUTH ASSOCIATE shunt tubing is noted bilaterally. The new [...] are clear. IMPRESSION: 1. Old and new YOUTH ASSOCIATE shunt tubing. 2. No hydrocephalus. 3. Atrophy [...] Tomography ACCESSION EXAM DATE/TIME PROCEDURE ORDERING PROVIDER [id number] 10/26/2021 11:[address] Head or Brain w/o JUNIE PINEDA, SARINA Contrast CPT code 12376 Reason For Exam (CT Head or Brain w/o Contrast) hydrocephalus. thank you Report CLINICAL INFORMATION: Hydrocephalus. Shunt. 3 mm axial cuts through the head are obtained without IV contrast. The examination is compared to a previous study dated 06/29/2014. FINDINGS: Old YOUTH ASSOCIATE shunt tubing is noted bilaterally. The new [...] are clear. IMPRESSION: 1. Old and new YOUTH ASSOCIATE shunt tubing. 2. No hydrocephalus. 3. Atrophy and evidence of small-vessel ischemic disease. 4. No CT evidence of an acute intracranial process. Report Dictated on Final Dictating Physician: MD SOLANO JEFFREY Signed Date and Time: 10/26/2021 11:42 am Signed by: MD SOLANO JEFFREY Transcribed Date and Time: 10/26/2021 11:43 Normal [facility] EEG awake and asleepon 10-26 Bony Tompkins MD 10/26/2021 4:06 PM [facility] [address] [place] [address] ROUTINE EEG REPORT Patient Name: Andrew Sifuentes : 1950 Date of Study: 10/26/2021 Duration Recorded: 23 minutes EEG#: [id number] HYDROPONICS GROWER: CASTRO PROVIDER REQUESTING STUDY: Dr. Barreto REASON FOR EXAM: seizures HISTORY: Andrew Sifuentes is a 71 y.o. male with history of obstructive hydrocephalus s/p YOUTH ASSOCIATE shunt in 1987, needing multiple revisions and [...] normal limits and both old and new YOUTH ASSOCIATE shunt tubing noted. At present patient is awake, follows commands, was able to tell his name, and that he was in hospital but not oriented to time. Per documentation patient had NCSE in May 2021, was on Vimpat, but it was discontinued as there was no evidence of recurrent seizures in July 2021 by Neurology at [facility], per daughter patient was on Dilantin for 31 yrs. Per daughter patient had seizures in the past and also felt he had staring episodes this morning. Per daughter patient has been essentially bed bound in ID since May 2021 but prior to that [...] study with video was carried out at [facility]. Scalp electrodes were positioned in person by an geodetic surveyor technologist, following patient education, according to the 10-20 International system of electrode placement and maintained for integrity and quality of the recording. EEG data with video was recorded continuously and digitally stored. The geodetic surveyor technologist reviewed all automated detections and manual [...] No normal vari (more content not included)... [employer] Work Phone: [facility] Work Phone: No Panel Informationon 10-26 Radiology Study observation (narrative) [facility] Work Phone: Prothrombin Timeon 2 INR 1.9 High 0.9-1.1 [facility] [employer] Comment on above: Result Comment: Harry mmended [...] Infarction Performed By: #### C OVAG #### [facility] [address] [place] [address] PT Coag (PPP) [Time] 19.7 s High 9.0-12.0 [facility] Comment on above: Result Comment: . Performed By: #### C OVAG #### [facility] [employer] [facility] [address] [place] [address] Protime-INRon 10-26-2021 INR Coag (Bld) [Relative time] 1.9 {INR} High [facility] Work Phone: Comment on above: [...] Interpretation and review of laboratory results Abnormal [facility] Work Phone: PT Coag (PPP) [Time] 19.7 s High 9.0 - 12.0 s [facility] Work Phone: Comment on above: . Test Performed by [facility], [address] [place], [place] [id number] [place] [address] LAB [facility] Work Phone: CA 19-9on 10-25-2021 CA 19-9 17 U/mL Normal <=35 [facility] Work Phone: Comment on above: [...] or absence of malignant disease. Performed By: [place] [address] Choreography Director: Quiana Castro MD Result Comment: INTE RPRETIVE [...] or absence of malignant disease. Performed By: [place] [address] Choreography Director: Quiana Castro MD Performed By: #### C OVAG #### [facility] [employer] [facility] [address] [place] [address] Cancer Antigen 19-9on 2021 [facility] Work Phone: Prothrombin Timeon INR 1.5 High 0.9-1.1 [facility] [employer] [facility] Comment on above: Result Comment: Harry mmended [...] Performed By: #### P T #### [facility] [employer] [facility] [address] [place] [address] PT Coag (PPP) [Time] 15.6 s High 9.0-12.0 [facility] [employer] [facility] Comment on above: Result Comment: . Performed By: #### P T #### [facility] [employer] [facility] [address] [place] [address] Protime-INRon 10-25-2021 INR Coag (Bld) [Relative time] 1.5 {INR} High [facility] Work Phone: Comment on above: [...] review of laboratory results Abnormal [facility] Work Phone: PT Coag (PPP) [Time] 15.6 s High 9.0 - 12.0 s [facility] Work Phone: Comment on above: . Test Performed by [facility], [address] [place], [place] [address] [facility] Work Phone: B-2 Glycoprotein (IGA)on Beta-2 Glyco 1 IgA <2.0 U/mL [facility] Work Phone: Comment on above: Interpretive Informa tion: Results equal to or greater than 20 U/mL = POSITIVE Results less than 20 U/mL = NEGATIVE B2 Glycoprotein I (IgM) Abon 10-24-2021 Beta-2 Glyco 1 IgM <1.5 U/mL [employer] Work Phone: Comment on above: Interpretive Informa tion: Results equal to or greater than 20 U/mL = POSITIVE Results less than 20 U/mL = NEGATIVE B2 Glycoprotein I Igg Abon 0 10-24-2021 Beta-2 Glyco 1 IgG <1.4 U/mL [facility] Work Phone: Comment on above: Interpretive Informa tion: Results equal to or greater than 20 U/mL = POSITIVE Results less than 20 U/mL = NEGATIVE Basic Metabolic Panelon 10-06 Anion gap [Moles/Vol] 8 mmol/L Normal 3-[address] [facility] Comment on above: Performed By: #### C A19O, LUPUS #### The performing lab is in the report. #### NSEO #### [facility] #### HEMDF, LDH3, BMP3, MG3, PT, CEA2 #### [facility] [address] [place] [address] #### B2GPM, B2GPA, B2GPG #### [facility] [address] [place] [address] Calcium [Mass/Vol] 8.8 mg/dL Normal 8.4-10.4 [facility] Comment on above: Performed By: #### C A19O, LUPUS #### The performing lab is in the report. #### NSEO #### [facility] #### HEMDF, LDH3, BMP3, MG3, PT, CEA2 #### [facility] [address] [place] [address] #### B2GPM, B2GPA, B2GPG #### [address] CO2 [Moles/Vol] 25 mmol/L Normal 22-30 [facility] Comment on above: Performed By: #### C A19O, LUPUS #### The performing lab is in the report. #### NSEO #### [facility] #### HEMDF, LDH3, BMP3, MG3, PT, CEA2 #### [facility] [address] [place] [address] #### B2GPM, B2GPA, B2GPG #### [address] Creatinine [Mass/Vol] 0.74 mg/dL Normal 0.52-1.[address] [facility] Comment on above: Performed By: #### C A19O, LUPUS #### The performing lab is in the report. #### NSEO #### [facility] #### HEMDF, LDH3, BMP3, MG3, PT, CEA2 #### [place] [address] [place] [address] #### B2GPM, B2GPA, B2GPG #### [address] eGFR OTHER > 90.0 Normal >60 [facility] Comment on above: Result Comment: KDIG [...] LDH3, BMP3, MG3, PT, CEA2 #### [facility] [address] [place] [address] #### B2GPM, B2GPA, B2GPG #### [address] GFR/1.73 sq M.predicted among blacks MDRD (S/P/Bld) [Vol rate/Area] mL/min/{1.73_m2} Normal >60 [facility] Comment on above: Performed By: #### C Mary LouO, LUPUS #### The performing lab is in the report. #### NSEO #### [facility] #### HEMDF, LDH3, BMP3, MG3, PT, CEA2 #### [facility] [address] [place] [address] #### B2GPM, B2GPA, B2GPG #### [address] Glucose [Mass/Vol] 116 mg/dL High 70-100 [facility] Comment on above: Performed By: #### C A19O, LUPUS #### The performing lab is in the report. #### NSEO #### [facility] #### HEMDF, LDH3, BMP3, MG3, PT, CEA2 #### [facility] [address] [place] [address] #### B2GPM, B2GPA, B2GPG #### [address] Urea nitrogen [Mass/Vol] 19 mg/dL High 7-17 [facility] Comment on above: Performed By: #### C A19O, LUPUS #### The performing lab is in the report. #### NSEO #### [facility] #### HEMDF, LDH3, BMP3, MG3, PT, CEA2 #### [place] [address] [place] [address] #### B2GPM, B2GPA, B2GPG #### [address] Chloride [Moles/Vol] 107 mmol/L Normal 98-107 [facility] Comment on above: Performed By: #### C A19O, LUPUS #### The performing lab is in the report. #### NSEO #### [facility] #### HEMDF, LDH3, BMP3, MG3, PT, CEA2 #### [place] [address] [place] [address] #### B2GPM, B2GPA, B2GPG #### [address] Potassium [Moles/Vol] 3.9 mmol/L Normal 3.5-5.[address] [facility] Comment on above: Performed By: #### C A19O, LUPUS #### The performing lab is in the report. #### NSEO #### [facility] #### HEMDF, LDH3, BMP3, MG3, PT, CEA2 #### [address] [place] [address] #### B2GPM, B2GPA, B2GPG #### [address] Sodium [Moles/Vol] 140 mmol/L Normal 135-145 [facility] Comment on above: Performed By: #### C A19O, LUPUS #### The performing lab is in the report. #### NSEO #### [facility] #### HEMDF, LDH3, BMP3, MG3, PT, CEA2 #### [place] [address] [place] [address] #### B2GPM, B2GPA, B2GPG #### [address] [address] Anion gap [Moles/Vol] 8 mmol/L 3 - 13 mmol/L [facility] Calcium [Mass/Vol] 8.8 mg/dL 8.4 - 10. 4 mg/dL [facility] Chloride [Moles/Vol] 107 mmol/L 98 - 10 7 mmol/L [facility] CO2 [Moles/Vol] 25 mmol/L 22 - 30 mmol/L [facility] Creatinine [Mass/Vol] 0.74 mg/dL 0.52 - 1.25 mg/dL [facility] EGFR IF NonAfrican Indonesian >90.0 >60 mL/min [facility] Comment on above: [...] - 17 mg/dL [facility] Test Performed by [facility], [address] [place], [place], [place] [id number] [place] [address] LAB [facility] Beta-2 Glycoprotein I IgAon 06-20-2022 Beta-2 Glycoprotein I IgA < 2.0 Normal [facility] Comment on above: Result Comment: Inte rpretive Information: Results equal to or greater than 20 U/mL = POSITIVE Results less than 20 U/mL = NEGATIVE Performed By: #### C OVAG #### [facility] [address] [place] [address] Beta-2 Glycoprotein I IgGon 10-24-2021 Beta-2 Glycoprotein I IgG < 1.4 Normal [facility] Comment on above: Result Comment: Inte rpretive Information: Results equal to or greater than 20 U/mL = POSITIVE Results less than 20 U/mL = NEGATIVE Performed By: #### C OVAG #### [facility] [address] [place] [address] Beta-2 Glycoprotein I IgMon 10-24-2021 Beta-2 Glycoprotein I IgM < 1.5 Normal [facility] Comment on above: Result Comment: Inte rpretive Information: Results equal to or greater than 20 U/mL = POSITIVE Results less than 20 U/mL = NEGATIVE Performed By: #### C OVAG #### [facility] [address] [place] [address] No Panel Informationon 10-24 [facility] Test Performed by [facility], [address] [place] [id number] [place] [address] LAB [facility] Work Phone: PROTEIN C FUNCTIONALon 10-24 Interpretation and review of laboratory results Abnormal [facility] Protein C-Functional 185 % High 83 [...] reference intervals for this test in the [facility] ([facility]). Performed by [facility], [address] [place] [address] [email or web address], Quiana Castro MD - Lab. Director Protein C, Functionalon 10-06 Protein C, Functional 185 % High 83-[address] [facility] Comment on above: Result Comment: INTE [...] reference intervals for this test in the [facility] ([employer]). Performed by [facility], [address] [place] [address] [email or web address], Quiana Castro MD - Lab. Director Performed By: #### P T #### [facility] [address] [place] [address] Protein S, Functionalon 06-2 Protein S, Functional 138 % Normal 66-[address] [facility] Comment on above: INTERPRETIVE INFORMA [...] reference intervals for this test in the [facility] ([employer]). Performed by [facility], [address] [place] [address] [email or web address], Quiana Castro MD - Lab. Director Result [...] reference intervals for this test in the [facility] ([employer]). Performed by [facility], [address],[place] [id number] [email or web address], Quiana Casrto MD - Lab. Director Performed By: #### P T #### [facility] [address] [place] [address] Prothrombin Timeon INR 1.2 High 0.9-1.1 [facility] Comment on above: Result Comment: Harry [...] HEMDF, LDH3, BMP3, MG3, PT, CEA2 #### [place] [address] [place] [address] #### B2GPM, B2GPA, B2GPG #### [address] [address] PT Coag (PPP) [Time] 12.6 s High 9.0-12.0 [facility] Comment on above: Result Comment: . Performed By: #### C A19O, LUPUS #### The performing lab is in the report. #### NSEO #### [facility] #### HEMDF, LDH3, BMP3, MG3, PT, CEA2 #### [address] [place] [address] #### B2GPM, B2GPA, B2GPG #### [address] [address] Protime-INRon 10-24-2021 INR Coag (Bld) [Relative time] 1.2 {INR} High [facility] Comment on above: Recommended Anticoag [...] Interpretation and review of laboratory results Abnormal [facility] PT Coag (PPP) [Time] 12.6 s High 9.0 - 12.0 s [facility] Comment on above: . Test Performed by [facility], [address] LAB [facility] Basic Metabolic Panelon 10-05 Anion gap [Moles/Vol] 10 mmol/L Normal 3-[address] [facility] Comment on above: Performed By: #### C A19O, LUPUS #### The performing lab is in the report. #### NSEO #### [facility] #### HEMDF, LDH3, BMP3, MG3, PT, CEA2 #### [place] [address] [place] [address] #### B2GPM, B2GPA, B2GPG #### [address] [address] Calcium [Mass/Vol] 9.6 mg/dL Normal 8.4-10.4 [facility] Comment on above: Performed By: #### C A19O, LUPUS #### The performing lab is in the report. #### NSEO #### [facility] #### HEMDF, LDH3, BMP3, MG3, PT, CEA2 #### [facility] [address] [place] [address] #### B2GPM, B2GPA, B2GPG #### [address] [address] CO2 [Moles/Vol] 27 mmol/L Normal 22-30 [facility] Comment on above: Performed By: #### C A19O, LUPUS #### The performing lab is in the report. #### NSEO #### [facility] #### HEMDF, LDH3, BMP3, MG3, PT, CEA2 #### [address] [place] [address] #### B2GPM, B2GPA, B2GPG #### [address] Glucose [Mass/Vol] 109 mg/dL High 70-100 [facility] Comment on above: Performed By: #### C A19O, LUPUS #### The performing lab is in the report. #### NSEO #### [facility] #### HEMDF, LDH3, BMP3, MG3, PT, CEA2 #### [address] [place] [address] #### B2GPM, B2GPA, B2GPG #### [address] Urea nitrogen [Mass/Vol] 18 mg/dL High 7-17 [facility] Comment on above: Performed By: #### C A19O, LUPUS #### The performing lab is in the report. #### NSEO #### [facility] #### HEMDF, LDH3, BMP3, MG3, PT, CEA2 #### [address] [place] [address] #### B2GPM, B2GPA, B2GPG #### [address] Creatinine [Mass/Vol] 0.82 mg/dL Normal 0.52-1.[address] [facility] Comment on above: Performed By: #### C A19O, LUPUS #### The performing lab is in the report. #### NSEO #### [facility] #### HEMDF, LDH3, BMP3, MG3, PT, CEA2 #### [address] [place] [address] #### B2GPM, B2GPA, B2GPG #### [address] GFR/1.73 sq M.predicted among blacks MDRD (S/P/Bld) [Vol rate/Area] mL/min/{1.73_m2} Normal >60 [facility] Comment on above: Performed By: #### C A19O, LUPUS #### The performing lab is in the report. #### NSEO #### [facility] #### HEMDF, LDH3, BMP3, MG3, PT, CEA2 #### [facility] [address] [place] [address] #### B2GPM, B2GPA, B2GPG #### [facility] [address] [place] [address] GFR/1.73 sq M.predicted among non-blacks MDRD (S/P/Bld) [Vol rate/Area] 89.9 mL/min/{1.73_m2} Normal >60 [facility] Comment on above: Result Comment: KDIG [...] LDH3, BMP3, MG3, PT, CEA2 #### [facility] [address] [place] [address] #### B2GPM, B2GPA, B2GPG #### [facility] [address] [place] [address] Chloride [Moles/Vol] 104 mmol/L Normal 98-107 [facility] Comment on above: Performed By: #### C A19O, LUPUS #### The performing lab is in the report. #### NSEO #### [facility] #### HEMDF, LDH3, BMP3, MG3, PT, CEA2 #### [place] [address] [place] [address] #### B2GPM, B2GPA, B2GPG #### [address] Potassium [Moles/Vol] 3.9 mmol/L Normal 3.5-5.[address] [facility] Comment on above: Performed By: #### C A19O, LUPUS #### The performing lab is in the report. #### NSEO #### [facility] #### HEMDF, LDH3, BMP3, MG3, PT, CEA2 #### [place] [address] [place] [address] #### B2GPM, B2GPA, B2GPG #### [address] Sodium [Moles/Vol] 142 mmol/L Normal 135-145 [facility] Comment on above: Performed By: #### C A19O, LUPUS #### The performing lab is in the report. #### NSEO #### [facility] #### HEMDF, LDH3, BMP3, MG3, PT, CEA2 #### [place] [address] [place] [address] #### B2GPM, B2GPA, B2GPG #### [address] Anion gap [Moles/Vol] 10 mmol/L 3 - 13 mmol/L [facility] Work Phone: Calcium [Mass/Vol] 9.6 mg/dL 8.4 - 10. 4 mg/dL [facility] Work Phone: [phone] Chloride [Moles/Vol] 104 mmol/L 98 - 10 7 mmol/L [facility] Work Phone: [phone] CO2 [Moles/Vol] 27 mmol/L 22 - 30 mmol/L [facility] Work Phone: Creatinine [Mass/Vol] 0.82 mg/dL 0.52 - 1.25 mg/dL [facility] Work Phone: EGFR IF NonAfrican Indonesian 89.9 mL/min >60 [facility] Work Phone: [phone] Comment on above: KDIGO guidelines pro [...] [Vol rate/Area] mL/min/{1.73_m2} >60 mL/min [facility] Work Phone: [phone] Glucose [Mass/Vol] 109 mg/dL High 70 - 100 mg/dL [facility] Work Phone: [phone] Interpretation and review of laboratory results Abnormal [facility] Work Phone: [phone] Potassium [Moles/Vol] 3.9 mmol/L 3.5 - 5.1 mmol/L [facility] Work Phone: Sodium [Moles/Vol] 142 mmol/L 135 - 145 mmol/L [facility] Work Phone: Urea nitrogen (BldV) [Mass/Vol] 18 mg/dL High 7 - 17 mg/dL [facility] Work Phone: CBC with Auto Differentialon [...] (Bld) 3.9 % 1.0 - 6.0 % [facility] Work Phone: [phone] Granulocytes/100 WBC (Bld) 64.0 % 40.0 - 80.0 % [facility] Work Phone: [phone] Hematocrit (Bld) [Volume fraction] 35.1 % Low 40.0 - 52.0 % [facility] Work Phone: [phone] Hemoglobin (Bld) [Mass/Vol] 11.6 g/dL Low 13.0 - 18.0 g/dL [facility] Work Phone: [phone] Interpretation and review of laboratory results Abnormal [employer] Work Phone: [phone] Lymphocytes (Bld) [#/Vol] 2.6 10*3/uL 1.0 - 4.3 10*3/uL [facility] Work Phone: [phone] Lymphocytes/100 WBC (Bld) 25.0 % 20.0 - 40.0 % [facility] Work Phone: [phone] MCH (RBC) [Entitic mass] 28.4 pg 26.0 - 34.0 pg [facility] Work Phone: [phone] MCHC (RBC) [Mass/Vol] 33.1 % 32.0 - 36.0 % [facility] Work Phone: [phone] MCV (RBC) [Entitic vol] 85.9 fL 80.0 - 98.0 fL [facility] Work Phone: [phone] Monocytes (Bld) [#/Vol] [...] 450 10*3/uL High 140 - 440 10*3/uL [facility] Work Phone: [phone] RBC (Bld) [#/Vol] 4.08 10*6/uL Low 4.40 - 5.9 0 10*6/uL [facility] Work Phone: [phone] WBC (Bld) [#/Vol] 10.3 10*3/uL 3.6 - 10.7 10*3/uL [facility] Work Phone: [phone] Test Performed by [facility], [address] LAB [employer] Work Phone: [phone] CEAon 10-23-2021 CEA 0.8 ng/mL 0.0 - 3.0 ng/mL [facility] Work Phone: [phone] Test Performed by [facility] [employer] [facility], [address] LAB [employer] Work Phone: [phone] Carcinoembryonic Agon 2021 Carcinoembryonic Ag. 0.8 ng/mL Normal 0.0-3.0 [facility] [employer] [facility] Comment on above: Performed By: #### C A19O, LUPUS #### The performing lab is in the report. #### NSEO #### [facility] #### HEMDF, LDH3, BMP3, MG3, PT, CEA2 #### [facility] [employer] [facility] [address] [place] [address] #### B2GPM, B2GPA, B2GPG #### [address] Hemogram w/ Autodiffon 10-23 Abs Baso Cnt 0.1 10*3/uL Normal 0.0-0.2 [facility] Comment on above: Performed By: #### C A19O, LUPUS #### The performing lab is in the report. #### NSEO #### [facility] #### HEMDF, LDH3, BMP3, MG3, PT, CEA2 #### [facility] [address] [place], [place] #### B2GPM, B2GPA, B2GPG #### [address] Abs Neutrophile Cnt 6.6 10*3/uL Normal 1.8-7.0 [facility] Comment on above: Performed By: #### C A19O, LUPUS #### The performing lab is in the report. #### NSEO #### [facility] #### HEMDF, LDH3, BMP3, MG3, PT, CEA2 #### [facility] [address] [place], [place] #### B2GPM, B2GPA, B2GPG #### [address] Basophils/100 WBC (Bld) 1.1 % Normal 0.0-2.0 [facility] Comment on above: Performed By: #### C A19O, LUPUS #### The performing lab is in the report. #### NSEO #### [facility] #### HEMDF, LDH3, BMP3, MG3, PT, CEA2 #### [facility] [address] [place] #### B2GPM, B2GPA, B2GPG #### [address] Eosinophils (Bld) [#/Vol] 0.4 10*3/uL Normal 0.0-0.5 [facility] Comment on above: Performed By: #### C A19O, LUPUS #### The performing lab is in the report. #### NSEO #### [facility] #### HEMDF, LDH3, BMP3, MG3, PT, CEA2 #### [facility] [address] [place] [address] #### B2GPM, B2GPA, B2GPG #### [address] [address] Eosinophils/100 WBC (Bld) 3.9 % Normal 1.0-6.0 [facility] Comment on above: Performed By: #### C A19O, LUPUS #### The performing lab is in the report. #### NSEO #### [facility] #### HEMDF, LDH3, BMP3, MG3, PT, CEA2 #### [facility] [address] [place] [address] #### B2GPM, B2GPA, B2GPG #### [address] [address] Erythrocyte distribution width (RBC) [Ratio] 17.4 % High 11.5-14.5 [facility] Comment on above: Performed By: #### C A19O, LUPUS #### The performing lab is in the report. #### NSEO #### [facility] #### HEMDF, LDH3, BMP3, MG3, PT, CEA2 #### [facility] [address] [place] [address] #### B2GPM, B2GPA, B2GPG #### [address] [address] Granulocytes/100 WBC (Bld) 64.0 % Normal 40.0-80.0 [facility] Comment on above: Performed By: #### C A19O, LUPUS #### The performing lab is in the report. #### NSEO #### [facility] #### HEMDF, LDH3, BMP3, MG3, PT, CEA2 #### [place] [address] [place] #### B2GPM, B2GPA, B2GPG #### [address] Hematocrit (Bld) [Volume fraction] 35.1 % Low 40.0-52.0 [facility] Comment on above: Performed By: #### C A19O, LUPUS #### The performing lab is in the report. #### NSEO #### [facility] #### HEMDF, LDH3, BMP3, MG3, PT, CEA2 #### [address] [place] #### B2GPM, B2GPA, B2GPG #### [address] Hemoglobin (Bld) [Mass/Vol] 11.6 g/dL Low 13.0-18.0 [facility] Comment on above: Performed By: #### C A19O, LUPUS #### The performing lab is in the report. #### NSEO #### [facility] #### HEMDF, LDH3, BMP3, MG3, PT, CEA2 #### [address] [place] #### B2GPM, B2GPA, B2GPG #### [address] Lymphocytes (Bld) [#/Vol] 2.6 10*3/uL Normal 1.0-4.3 [facility] Comment on above: Performed By: #### C A19O, LUPUS #### The performing lab is in the report. #### NSEO #### [facility] #### HEMDF, LDH3, BMP3, MG3, PT, CEA2 #### [address] [place] #### B2GPM, B2GPA, B2GPG #### [address] Lymphocytes/100 WBC (Bld) 25.0 % Normal 20.0-40.0 [facility] Comment on above: Performed By: #### C A19O, LUPUS #### The performing lab is in the report. #### NSEO #### [facility] #### HEMDF, LDH3, BMP3, MG3, PT, CEA2 #### [facility] [address] [place] [address] #### B2GPM, B2GPA, B2GPG #### [address] MCH (RBC) [Entitic mass] 28.4 pg Normal 26.0-34.0 [facility] Comment on above: Performed By: #### C A19O, LUPUS #### The performing lab is in the report. #### NSEO #### [facility] #### HEMDF, LDH3, BMP3, MG3, PT, CEA2 #### [facility] [address] [place] #### B2GPM, B2GPA, B2GPG #### [address] MCHC 33.1 % Normal 32.0-36.0 [facility] Comment on above: Performed By: #### C A19O, LUPUS #### The performing lab is in the report. #### NSEO #### [facility] #### HEMDF, LDH3, BMP3, MG3, PT, CEA2 #### [facility] [address] [place] #### B2GPM, B2GPA, B2GPG #### [address] MCV (RBC) [Entitic vol] 85.9 fL Normal 80.0-98.0 [facility] Comment on above: Performed By: #### C A19O, LUPUS #### The performing lab is in the report. #### NSEO #### [facility] #### HEMDF, LDH3, BMP3, MG3, PT, CEA2 #### [place] [address] [place] #### B2GPM, B2GPA, B2GPG #### [address] Monocytes (Bld) [#/Vol] 0.6 10*3/uL Normal 0.0-0.8 [facility] Comment on above: Performed By: #### C A19O, LUPUS #### The performing lab is in the report. #### NSEO #### [facility] #### HEMDF, LDH3, BMP3, MG3, PT, CEA2 #### [address] [place] #### B2GPM, B2GPA, B2GPG #### [address] Monocytes/100 WBC (Bld) 6.0 % Normal 2.0-10.0 [facility] Comment on above: Performed By: #### C A19O, LUPUS #### The performing lab is in the report. #### NSEO #### [facility] #### HEMDF, LDH3, BMP3, MG3, PT, CEA2 #### [address] [facility] [place] #### B2GPM, B2GPA, B2GPG #### [address] Platelet mean volume (Bld) [Entitic vol] 8.1 fL Normal 7.4-12.4 [facility] Comment on above: Result Comment: MPV is a calculated measurement using platelet volume ratio. Performed By: #### C A19O, LUPUS #### The performing lab is in the report. #### NSEO #### [facility] #### HEMDF, LDH3, BMP3, MG3, PT, CEA2 #### [place] [address] [place] #### B2GPM, B2GPA, B2GPG #### [place] [address] [place], [place] Platelets (Bld) [#/Vol] 450 10*3/uL High 140-440 [facility] Comment on above: Performed By: #### C A19O, LUPUS #### The performing lab is in the report. #### NSEO #### [facility] #### HEMDF, LDH3, BMP3, MG3, PT, CEA2 #### [facility] [address] [place], [place] #### B2GPM, B2GPA, B2GPG #### [address] RBC (Bld) [#/Vol] 4.08 10*6/uL Low 4.40-5.90 [facility] Comment on above: Performed By: #### C A19O, LUPUS #### The performing lab is in the report. #### NSEO #### [facility] #### HEMDF, LDH3, BMP3, MG3, PT, CEA2 #### [facility] [address] [place], [place] #### B2GPM, B2GPA, B2GPG #### [address] WBC (Bld) [#/Vol] 10.3 10*3/uL Normal 3.6-10.7 [facility] Comment on above: Performed By: #### C A19O, LUPUS #### The performing lab is in the report. #### NSEO #### [facility] #### HEMDF, LDH3, BMP3, MG3, PT, CEA2 #### [facility] [address] [place] [address] #### B2GPM, B2GPA, B2GPG #### [address] LDHon 10-23-2021 LDH 136 U/L Normal 120-246 [facility] Comment on above: Performed By: #### C A19O, LUPUS #### The performing lab is in the report. #### NSEO #### [facility] #### HEMDF, LDH3, BMP3, MG3, PT, CEA2 #### [facility] [address] [place] [address] #### B2GPM, B2GPA, B2GPG #### [facility] [address] [place] [address] Lactate Dehydrogenaseon - LD 136 U/L 120 - 246 U/L [facility] Work Phone: MRI ABDOMEN WO CONTRASTon Patient Name: ANDREW SIFUENTES Magnetic Resonance Imaging ACCESSION EXAM DATE/TIME PROCEDURE ORDERING PROVIDER [id number] 10/23/2021 11:08 EDT MRI Abdomen w/o Contrast DONOVAN SRIVASTAVAW CPT code 05250 Reason For Exam (MRI Abdomen w/o Contrast) [...] Imaging ACCESSION EXAM DATE/TIME PROCEDURE ORDERING PROVIDER [id number] 10/23/2021 11:08 EDT MRI Abdomen w/o Contrast WING SRIVASTAVA CPT code 23653 Reason For Exam (MRI Abdomen w/o Contrast) [...] By: Unknown Result on 10-23-2021 [facility] w/o Contraston 0 10-23-2021 MRI Abdomen w/o Contrast [facility]: [id number] Res[facility] Imaging ACCESSION EXAM DATE/TIME PROCEDURE ORDERING PROVIDER [id number] 10/23/2021 11:08 EDT MRI Abdomen w/o Contrast WING SRIVASTAVA CPT code 91898 Reason For Exam (MRI Abdomen w/o Contrast) [...] Transcribed Date and Time: 10/23/2021 4:36 Normal [facility] Magnesiumon 10-23-2021 Magnesium [Mass/Vol] 2.1 mg/dL Normal 1.6-2.3 [facility] Comment on above: Performed By: #### C A19O, LUPUS #### The performing lab is in the report. #### NSEO #### [facility] #### HEMDF, LDH3, BMP3, MG3, PT, CEA2 #### [facility] [address] [place] [address] #### B2GPM, B2GPA, B2GPG #### [address] [address] Magnesium [Mass/Vol] 2.1 mg/dL 1.6 - 2 .3 mg/dL [facility] Work Phone: No Panel Informationon 10-23 Test Performed by [facility], [address] [place], [place] [id number] [place] [address] LAB [facility] Work Phone: Prothrombin Timeon 2 INR 1.1 Normal 0.9-1.1 [facility] Comment on above: Result Comment: Harry [...] LDH3, BMP3, MG3, PT, CEA2 #### [address] [place] [address] #### B2GPM, B2GPA, B2GPG #### [address] [address] PT Coag (PPP) [Time] 12.2 s High 9.0-12.0 [facility] Comment on above: Result Comment: . Performed By: #### C A19O, LUPUS #### The performing lab is in the report. #### NSEO #### [facility] #### HEMDF, LDH3, BMP3, MG3, PT, CEA2 #### [address] [place] [address] #### B2GPM, B2GPA, B2GPG #### [address] [address] Protime-INRon 10-23-2021 INR Coag (Bld) [Relative time] 1.1 {INR} [facility] Work Phone: Comment on above: [...] Interpretation and review of laboratory results Abnormal [facility] Work Phone: PT Coag (PPP) [Time] 12.2 s High 9.0 - 12.0 s [facility] Work Phone: Comment on above: . Test Performed by [facility], [address] [place] [address] [facility] LAB [facility] Work Phone: Basic Metabolic Panelon 10-05-2021 Calcium [Mass/Vol] 8.9 mg/dL Normal 8.4-10.4 [facility] Comment on above: Performed By: #### P T #### [facility] [address] [place] [address] Glucose [Mass/Vol] 110 mg/dL High 70-100 [facility] Comment on above: Performed By: #### P T #### [facility] [address] [place] [address] Urea nitrogen [Mass/Vol] 14 mg/dL Normal 7-17 [facility] Comment on above: Performed By: #### P T #### [facility] [address] [place] [address] Anion gap [Moles/Vol] 7 mmol/L Normal 3-[address] [facility] Comment on above: Performed By: #### P T #### [facility] [address] [place] [address] CO2 [Moles/Vol] 26 mmol/L Normal 22-30 [facility] Comment on above: Performed By: #### P T #### [facility] [address] [place] [address] Creatinine [Mass/Vol] 0.71 mg/dL Normal 0.52-1.[address] [facility] Comment on above: Performed By: #### P T #### [facility] [address] [place] [address] eGFR OTHER > 90.0 Normal >60 [facility] Comment on above: Result Comment: KDIG [...] secretion. Performed By: #### P T #### [facility] [address] [place] [address] GFR/1.73 sq M.predicted among blacks MDRD (S/P/Bld) [Vol rate/Area] mL/min/{1.73_m2} Normal >60 [facility] Comment on above: Performed By: #### P T #### [facility] [address] [place] [address] Potassium [Moles/Vol] 3.8 mmol/L Normal 3.5-5.[address] [facility] Comment on above: Performed By: #### P T #### [facility] [address] [place] [address] Chloride [Moles/Vol] 106 mmol/L Normal 98-107 [facility] Comment on above: Performed By: #### P T #### [facility] [address] [place] [address] Sodium [Moles/Vol] 139 mmol/L Normal 135-145 [facility] Comment on above: Performed By: #### P T #### [place] [address] [place] [address] Anion gap [Moles/Vol] 7 mmol/L 3 - 13 mmol/L [facility] Calcium [Mass/Vol] 8.9 mg/dL 8.4 - 10. 4 mg/dL [facility] Chloride [Moles/Vol] 106 mmol/L 98 - 10 7 mmol/L [facility] CO2 [Moles/Vol] 26 mmol/L 22 - 30 mmol/L [facility] Creatinine [Mass/Vol] 0.71 mg/dL 0.52 - 1.25 mg/dL [facility] EGFR IF NonAfrican Indonesian >90.0 >60 mL/min [facility] Comment on above: [...] - 10.7 10*3/uL [facility] Test Performed by [facility], [address] [place], [place] [id number] [place] [address] [address] [facility]domen Pelvis Wo Umair johnston 10-22-2021 Patient Name: ANDREW SIFUENTES Computed Tomography ACCESSION EXAM DATE/TIME PROCEDURE ORDERING PROVIDER [id number] 10/22/2021 13:[address] Abdomen/Pelvis (No WING SRIVASTAVA PO, No IV) CPT code 39209 Reason For Exam (CT Abdomen/Pelvis (No PO, [...] HARLAN Transcribed Date and Time: 10/22/2021 2:37 [facility] RAD Humphrey Melton MD - 10/22/2021 Patient Name: ANDREW SIFUENTES Computed Tomography ACCESSION EXAM DATE/TIME PROCEDURE ORDERING PROVIDER [id number] 10/22/2021 13:[address] Abdomen/Pelvis (No SRIVASTAVA, WING PO, No IV) CPT code 17724 Reason For Exam (CT Abdomen/Pelvis (No PO, [...] Tomography ACCESSION EXAM DATE/TIME PROCEDURE ORDERING PROVIDER [id number] 10/22/2021 13:[address] Abdomen/Pelvis (No SRIVASTAVA, WING PO, No IV) CPT code 80955 Reason For Exam (CT Abdomen/Pelvis (No PO, [...] Transcribed Date and Time: 10/22/2021 2:37 Normal [facility] Hemogram w/ Autodiffon 10-22 Abs Baso Cnt 0.1 10*3/uL Normal 0.0-0.2 [facility] Comment on above: Performed By: #### P T #### [facility] [address] [place] [address] Abs Neutrophile Cnt 6.0 10*3/uL Normal 1.8-7.0 [facility] Comment on above: Performed By: #### P T #### [facility] [address] [place] [address] Basophils/100 WBC (Bld) 1.0 % Normal 0.0-2.0 [facility] Comment on above: Performed By: #### P T #### [facility] [address] [place] [address] Eosinophils (Bld) [#/Vol] 0.3 10*3/uL Normal 0.0-0.5 [facility] Comment on above: Performed By: #### P T #### [facility] [address] [place] [address] Eosinophils/100 WBC (Bld) 3.0 % Normal 1.0-6.0 [facility] Comment on above: Performed By: #### P T #### [facility] [address] [place] [address] Erythrocyte distribution width (RBC) [Ratio] 17.1 % High 11.5-14.5 [facility] Comment on above: Performed By: #### P T #### [facility] [address] [place] [address] Granulocytes/100 WBC (Bld) 64.1 % Normal 40.0-80.0 [facility] Comment on above: Performed By: #### P T #### [facility] [address] [place] [address] Hematocrit (Bld) [Volume fraction] 33.4 % Low 40.0-52.0 [facility] Comment on above: Performed By: #### P T #### [facility] [address] [place] [address] Hemoglobin (Bld) [Mass/Vol] 10.9 g/dL Low 13.0-18.0 [facility] Comment on above: Performed By: #### P T #### [facility] [address] [place] [address] Lymphocytes (Bld) [#/Vol] 2.5 10*3/uL Normal 1.0-4.3 [facility] Comment on above: Performed By: #### P T #### [facility] [address] [place] [address] Lymphocytes/100 WBC (Bld) 26.3 % Normal 20.0-40.0 [facility] Comment on above: Performed By: #### P T #### [place] [address] [place] [address] MCH (RBC) [Entitic mass] 28.2 pg Normal 26.0-34.0 [facility] Comment on above: Performed By: #### P T #### [place] [address] [place] [address] MCHC 32.7 % Normal 32.0-36.0 [facility] Comment on above: Performed By: #### P T #### [facility] [address] [place] [address] MCV (RBC) [Entitic vol] 86.3 fL Normal 80.0-98.0 [facility] Comment on above: Performed By: #### P T #### [place] [address] [place] [address] Monocytes (Bld) [#/Vol] 0.5 10*3/uL Normal 0.0-0.8 [facility] Comment on above: Performed By: #### P T #### [facility] [address] [place] [address] Monocytes/100 WBC (Bld) 5.6 % Normal 2.0-10.0 [facility] Comment on above: Performed By: #### P T #### [place] [address] [place] [address] Platelet mean volume (Bld) [Entitic vol] 7.6 fL Normal 7.4-12.4 [facility] Comment on above: Result Comment: MPV is a calculated measurement using platelet volume ratio. Performed By: #### P T #### [place] [address] [place] [address] Platelets (Bld) [#/Vol] 369 10*3/uL Normal 140-440 [facility] Comment on above: Performed By: #### P T #### [facility] [address] [place] [address] RBC (Bld) [#/Vol] 3.87 10*6/uL Low 4.40-5.90 [facility] Comment on above: Performed By: #### P T #### [facility] [address] [place] [address] WBC (Bld) [#/Vol] 9.4 10*3/uL Normal 3.6-10.7 [facility] Comment on above: Performed By: #### P T #### [facility] [address] [place] [address] Magnesiumon 10-22-2021 Magnesium [Mass/Vol] 2.0 mg/dL Normal 1.6-2.3 [facility] Comment on above: Performed By: #### P T #### [facility] [address] [place] [address] Magnesium [Mass/Vol] 2.0 mg/dL 1.6 - 2 .3 mg/dL [facility] No Panel Informationon 10-22 Radiology Study observation (narrative) [facility] Work Phone: Test Performed by [facility], [address] [place], [place] [address] [facility] LAB [facility] Prothrombin Timeon 2 INR 1.1 Normal 0.9-1.1 [facility] Comment on above: Result Comment: Harry [...] LDH3, BMP3, MG3, PT, CEA2 #### [facility] [address] [place] [address] #### B2GPM, B2GPA, B2GPG #### [facility] [address] [place] [address] PT Coag (PPP) [Time] 11.8 s Normal 9.0-12.0 [facility] Comment on above: Result Comment: . Performed By: #### C A19O, LUPUS #### The performing lab is in the report. #### NSEO #### [facility] #### HEMDF, LDH3, BMP3, MG3, PT, CEA2 #### [facility] [address] [place] [address] #### B2GPM, B2GPA, B2GPG #### [facility] [address] [place] [address] Protime-INRon 10-22-2021 INR Coag (Bld) [Relative time] 1.1 {INR} [facility] Work Phone: Comment on above: [...] [Time] 11.8 s 9.0 - 12.0 s [facility] Work Phone: Comment on above: . Test Performed by [facility], [address] [place], [place] [address] [facility] Work Phone: VL Ankle Art Brachial Indice s Extremity Bilateralon 10-22-2021 [facility] Ankle Brachial Index Report Patient DO GurpreetB: 1950 Study 10/21/2021 Name: Andrew Gonzalez (71yrs) Date: Age: 71 Account: [id number] Gender: M Loc: [id number] BP: Ordering Physician: Shruthi Malik Moisture Meter Operator: Rody Cross RDMS, RVT Interpreting Physician: Carina Call Location: [facility] Indications: Foot wounds. Originally ordered as a full PVR. Ordering ROLLWAY MAN had to modify the order to ABIs [...] supine position. Images were obtained using a [employer] vascular ultrasound machine. Arterial pressure indices: + [...] electronically signed by Carina Call 10/22/2021 13:21 [facility] CARDIOLOGY Carina Call MD - 10/22/2021 [facility] Ankle Brachial Index Report Patient RADHA Sifuentes: 1950 Study 10/21/2021 Name: Andrew Gonzalez (71yrs) Date: Age: 71 Account: [id number] Gender: M Loc: 444W BP: Ordering Physician: Shruthi Malik Moisture Meter Operator: Rody Cross RDMS, RVT Interpreting Physician: Carina Call Location: [facility] Indications: Foot wounds. Originally ordered as a full PVR. Ordering ROLLWAY MAN had to modify the order to ABIs [...] supine position. Images were obtained using a [employer] vascular ultrasound machine. Arterial pressure indices: + [...] electronically signed by Carina Call 10/22/2021 13:21 [facility] Work Phone: [facility] Work Phone: Basic Metabolic Panelon 10-05 Calcium [Mass/Vol] 9.1 mg/dL Normal 8.4-10.4 [facility] Comment on above: Performed By: #### C OVAG #### [facility] [employer] [address] [place] [address] Anion gap [Moles/Vol] 6 mmol/L Normal 3-[address] [facility] Comment on above: Performed By: #### C OVAG #### [facility] [employer] [facility] [address] [place] [address] CO2 [Moles/Vol] 29 mmol/L Normal 22-30 [facility] Comment on above: Performed By: #### C OVAG #### [facility] [address] [place] [address] Creatinine [Mass/Vol] 0.90 mg/dL Normal 0.52-1.[address] [facility] Comment on above: Performed By: #### C OVAG #### [facility] [address] [place] [address] GFR/1.73 sq M.predicted among blacks MDRD (S/P/Bld) [Vol rate/Area] mL/min/{1.73_m2} Normal >60 [facility] Comment on above: Performed By: #### C OVAG #### [facility] [address] [place] [address] GFR/1.73 sq M.predicted among non-blacks MDRD (S/P/Bld) [Vol rate/Area] 86.6 mL/min/{1.73_m2} Normal >60 [facility] Comment on above: Result Comment: KDIG [...] secretion. Performed By: #### C OVAG #### [facility] [address] [place] [address] Glucose [Mass/Vol] 106 mg/dL High 70-100 [facility] Comment on above: Performed By: #### C OVAG #### [facility] [address] [place] [address] Urea nitrogen [Mass/Vol] 18 mg/dL High 7-17 [facility] Comment on above: Performed By: #### C OVAG #### [facility] [address] [place] [address] Chloride [Moles/Vol] 105 mmol/L Normal 98-107 [facility] Comment on above: Performed By: #### C OVAG #### [facility] [address] [place] [address] Potassium [Moles/Vol] 4.3 mmol/L Normal 3.5-5.[address] [facility] Comment on above: Performed By: #### C OVAG #### [facility] [address] [place] [address] Sodium [Moles/Vol] 139 mmol/L Normal 135-145 [facility] Comment on above: Performed By: #### C OVAG #### [facility] [address] [place] [address] Anion gap [Moles/Vol] 6 mmol/L 3 - 13 mmol/L [facility] Calcium [Mass/Vol] 9.1 mg/dL 8.4 - 10. 4 mg/dL [facility] Chloride [Moles/Vol] 105 mmol/L 98 - 10 7 mmol/L [facility] CO2 [Moles/Vol] 29 mmol/L 22 - 30 mmol/L [facility] Creatinine [Mass/Vol] 0.9 mg/dL 0.52 - 1.25 mg/dL [facility] EGFR IF NonAfrican Indonesian 86.6 mL/min >60 [facility] Comment on above: KDIGO guidelines [...] - 17 mg/dL [facility] Test Performed by [facility], [address] [place], [place], [place] [id number] [place] [address] LAB [facility] C-Reactive Proteinon 022 CRP [Mass/Vol] 33.5 mg/L High 0.0-9.9 [facility] Comment on above: Result Comment: . Performed By: #### P T #### [facility] [address] [place] [address] CRP [Mass/Vol] 33.5 mg/L High 0.0 - 9.9 mg/L [facility] Comment on above: . Interpretation and review of laboratory results Abnormal [facility] Test Performed by [facility], [address] [place], [address] LAB [facility] CR Calcaneus 2+ Views Lefton 10-21-2021 CR Calcaneus 2+ Views Left [facility]: [id number] Radiology ACCESSION EXAM DATE/TIME PROCEDURE ORDERING PROVIDER [id number] 10/21/2021 15:30 EDT CR Calcaneus 2+ Views [id number] -SHRUTHI MALIK Left CPT code 36367 Reason For Exam (CR Calcaneus 2+ Views [...] Transcribed Date and Time: 10/21/2021 4:33 Normal [facility] CR Chest 1 View Frontalon CR Chest 1 View Frontal Patient Name: ANDREW SIFUENTES Diagnostic Radiology ACCESSION EXAM DATE/TIME PROCEDURE ORDERING PROVIDER [id number] 10/21/2021 08:16 EDT CR Chest 1 View Frontal [id number] MAY BOGGS CPT code 68324 Reason For Exam (CR Chest 1 View [...] Transcribed Date and Time: 10/21/2021 8:33 Normal [facility] D-Dimer, Innovanceon 022 D-Dimer, Innovance 1.51 mg/L High <0.19-0.50 [facility] Comment on above: Result Comment: Inno saba D-Dimer values of <0.50 mg/L FEU can be used in combination with a pre-test probability model (e.g. Well's) to exclude pulmonary embolism (PE) disease, as well as an aid in the diagnosis of deep vein thrombosis (DVT). Performed By: #### P T #### [facility] [address] [place] [address] D-Dimer, Quantitativeon 10-05 D-Dimer, Quant 1.51 mg/L High <0.19 - 0.50 [facility] Comment on above: [facility] D-Dimer va lues of <0.50 mg/L FEU can be used in combination with a pre-test probability model (e.g. Well's) to exclude pulmonary embolism (PE) disease, as well as an aid in the diagnosis of deep vein thrombosis (DVT). Interpretation and review of laboratory results Abnormal [facility] Test Performed by [facility], [address] [place], [place], [place] [address] [facility] LAB [facility] ED Provider Noteon 2 ED Provider Note [facility] ED EMERGENCY DEPARTMENT ENCOUNTER Pt Name: [...] (HCC) ? Kidney stone ? Neuropathy ? YOUTH ASSOCIATE (ventriculoperitoneal) shunt status SURGICAL HISTORY Past Surgical [...] Respirations (more content not included)... Normal [facility] [employer] [facility] Hemogramon 10-21-2021 Erythrocyte distribution width (RBC) [Ratio] 17.3 % High 11.5-14.5 [facility] Comment on above: Performed By: #### C OVAG #### [facility] [address] [place] [address] Hematocrit (Bld) [Volume fraction] 33.6 % Low 40.0-52.0 [facility] Comment on above: Performed By: #### C OVAG #### [facility] [address] [place] [address] Hemoglobin (Bld) [Mass/Vol] 10.9 g/dL Low 13.0-18.0 [facility] Comment on above: Performed By: #### C OVAG #### [facility] [address] [place] [address] MCH (RBC) [Entitic mass] 27.8 pg Normal 26.0-34.0 [facility] Comment on above: Performed By: #### C OVAG #### [facility] [address] [place] [address] MCHC 32.5 % Normal 32.0-36.0 [facility] Comment on above: Performed By: #### C OVAG #### [facility] [address] [place] [address] MCV (RBC) [Entitic vol] 85.6 fL Normal 80.0-98.0 [facility] Comment on above: Performed By: #### C OVAG #### [facility] [address] [place] [address] Platelet mean volume (Bld) [Entitic vol] 7.7 fL Normal 7.4-12.4 [facility] Comment on above: Result Comment: MPV is a calculated measurement using platelet volume ratio. Performed By: #### C OVAG #### [facility] [address] [place] [address] Platelets (Bld) [#/Vol] 404 10*3/uL Normal 140-440 [facility] Comment on above: Performed By: #### C OVAG #### [facility] [address] [place] [address] RBC (Bld) [#/Vol] 3.93 10*6/uL Low 4.40-5.90 [facility] Comment on above: Performed By: #### C OVAG #### [facility] [address] [place] [address] WBC (Bld) [#/Vol] 11.6 10*3/uL High 3.6-10.7 [facility] Comment on above: Performed By: #### C OVAG #### [facility] [address] [place] [address] Hemogram (CBC)on 10-21-2021 Hematocrit (Bld) [Volume fraction] 33.6 % Low 40.0 - 52.0 % [facility] Hemoglobin (Bld) [Mass/Vol] 10.9 g/dL Low 13.0 - 18.0 g/dL [facility] Interpretation and review of laboratory results [...] vol] 7.7 fL 7.4 - 12.4 fL [facility] Comment on above: MPV is a calculated measurement using platelet volume ratio. Platelets (Bld) [#/Vol] 404 10*3/uL 140 - 440 10*3/uL [facility] RBC (Bld) [#/Vol] 3.93 10*6/uL Low 4.40 - 5.9 0 10*6/uL [facility] WBC (Bld) [#/Vol] 11.6 10*3/uL High 3.6 - 10.7 10*3/uL [facility] Test Performed by [facility], [address] [place], [place] [address] [facility] LAB [facility] NM LUNG VENT/PERFUSION (VQ)o n 10-21-2021 Patient Name: ANDREW SIFUENTES Nuclear Medicine ACCESSION EXAM DATE/TIME PROCEDURE ORDERING PROVIDER [id number] 10/21/2021 07:55 EDT NM Pulmonary Perfusion [id number] -MAY CASH w/ Vent Aerosol CPT code 02392 A9567 Reason For Exam (NM Pulmonary Perfusion [...] JOHN Transcribed Date and Time: 10/21/2021 8:49 [facility] RAD Henry Harvey MD - 10/21/2021 Patient Name: ANDREW SIFUENTES Nuclear Medicine ACCESSION EXAM DATE/TIME PROCEDURE ORDERING PROVIDER [id number] 10/21/2021 07:55 EDT NM Pulmonary Perfusion [id number] -MAY CASH w/ Vent Aerosol CPT code 97045 A9567 Reason For Exam (NM Pulmonary Perfusion [...] JOHN Transcribed Date and Time: 10/21/2021 8:49 [facility] Work Phone: NM LUNG VENT/PERFUSION (VQ)O rdered By: Henry Harvey on 10-21-2021 [facility] Work Phone: NM Pulmonary Perfusion w/ Ve nt Aerosol or Gason 10-21-2021 NM Pulmonary Perfusion w/ Vent Aerosol or Gas Patient Name: ANDREW SIFUENTES Nuclear Medicine ACCESSION EXAM DATE/TIME PROCEDURE ORDERING PROVIDER [id number] 10/21/2021 07:55 EDT NM Pulmonary Perfusion [id number] MAY BOGGS w/ Vent Aerosol CPT code 89966 A9567 Reason For Exam (NM Pulmonary Perfusion [...] Transcribed Date and Time: 10/21/2021 8:49 Normal [facility] No Panel Informationon 10-21 Radiology Study observation (narrative) [facility] Work Phone: Prothrombin Timeon 2 INR 1.1 Normal 0.9-1.1 [facility] Comment on above: Result Comment: Harry [...] Performed By: #### C OVAG #### [facility] [address] [place] [address] PT Coag (PPP) [Time] 11.5 s Normal 9.0-12.0 [facility] Comment on above: Result Comment: . Performed By: #### C OVAG #### [facility] [address] [place] [address] Protime-INRon 10-21-2021 INR Coag (Bld) [Relative time] 1.1 {INR} [facility] Comment on above: Recommended Anticoag [...] [Time] 11.5 s 9.0 - 12.0 s [facility] Comment on above: . Test Performed by [facility], [address] LAB [facility] Retic Count(%)on 10-21-2021 Retic Count(%) 1.6 Normal [facility] Comment on above: Result Comment: [place] < 5% Adults 0.5 - 1.5% Performed By: #### P T #### [facility] [address] [place] [address] Reticulocyteson 10-21-[address] Pct 1.6 [facility] Comment on above: [place] < 5% Adults 0.5 - 1.5% Test Performed by [facility], [address] LAB [facility] Sed Rateon 10-21-2021 Sed Rate 63 mm/h High 0-10 [facility] Comment on above: Performed By: #### P T #### [facility] [address] [place] [address] Sedimentation Rateon 022 Interpretation and review of laboratory results Abnormal [facility] Sed Rate 63 mm/h High 0 - 10 mm/h [facility] Test Performed by [facility], [address], [place], [place] [address] [facility] LAB [facility] VL CARMELLA Upr/L Extremity Art 1 -2 Levelson 10-21-2021 VL CARMELAL Upr/L Extremity Art 1-2 Levels Patient Name: ANDREW SIFUENTES Ultrasound ACCESSION EXAM DATE/TIME PROCEDURE ORDERING PROVIDER [id number] 10/21/2021 16:12 EDT VL Upr/L Extremity Art [id number] -SHRUTHI MALIK 1-2 Levels CPT code 13491 Reason For Exam (VL Upr/L Extremity Art 1-2 Levels) both lower legs CARMELLA for both feet wounds. Report [facility] Ankle Brachial Index Report Patient Gurpreet : 1950 Study 10/21/2021 Name: Andrew Gonzalez (71yrs) Date: Age: 71 Account: [id number] Gender: M Loc: 444W BP: Ordering Physician: Shruthi Malik Moisture Meter Operator: Rody Cross RDMS, RVT Interpreting Physician: Carina Call Location: [facility] Indications: Foot wounds. Originally ordered as a full PVR. Ordering ROLLWAY MAN had to modify the order to ABIs [...] supine position. Images were obtained using a [employer] vascular ultrasound machine. Arterial pressure indices: + [...] CARINA HENNESSY Cardiovascular ACCESSION EXAM DATE/TIME PROCEDURE [id number] 10/21/2021 16:12 EDT VL Upr/L Extremity Art 1-2 Levels CPT code 53158 Reason For Exam (VL Upr/L Extremity Art 1-2 Levels) both lower legs CARMELLA for both feet wounds. Report [facility] Ankle Brachial Index Report Patient DO GurpreetB: 1950 Study 10/21/2021 Name: Andrew Gonzalez (71yrs) Date: Age: 71 Account: [id number] Cardiovascular Report Gender: M Loc: 444W BP: Ordering Physician: Shruthi Malik Moisture Meter Operator: Rody Cross RDMS, RVT Interpreting Physician: Carina Call Location: [facility] Indications: Foot wounds. Originally ordered as a full PVR. Ordering ROLLWAY MAN had to modify the order to ABIs [...] th (more content not included)... Normal [facility] VL LOWER EXTREMITY BILATERAL VENOUS DUPLEXon 10-21-2021 [facility] Lower Extremity Venous Duplex Report Patient DO GurpreetB: 1950 Study 10/21/2021 Name: Andrew Gonzalez (71yrs) Date: Age: 71 Account: [id number] Gender: M Loc: 444 BP: Ordering Physician: May Cash Moisture Meter Operator: Rody Cross RDMS, RVT Interpreting Physician: [...] supine position. Images were obtained using a [employer] vascular ultrasound machine. Venous flow and imaging: [...] +-------- --------+ + (more content not included)... [facility] CARDIOLOG[facility] Carina Call MD - 10/21/2021 [facility] Lower Extremity Venous Duplex Report Patient DO GurpreetB: 1950 Study 10/21/2021 Name: Andrew Gonzalez (71yrs) Date: Age: 71 Account: [id number] Gender: M Loc: 444 BP: Ordering Physician: May Cash Moisture Meter Operator: Rody Cross RDMS, RVT Interpreting Physician: [...] supine position. Images were obtained using a [employer] vascular ultrasound machine. Venous flow and imaging: [...] + + +----- (more content not included)... [employer] Work Phone: VL LOWER EXTREMITY BILATERAL VENOUS DUPLEXOrdered By: Carina Call on 10-21-2021 [employer] Work Phone: VL Venous Duplex US Lower Ex t Bilateralon 10-21-2021 VL Venous Duplex US Lower Ext Bilateral Patient Name: ANDREW SIFUENTES Ultrasound ACCESSION EXAM DATE/TIME PROCEDURE ORDERING PROVIDER [id number] 10/21/2021 09:53 EDT VL Venous Duplex [place] [id number] -MAY CASH Lower Ext Bilateral CPT code 66825 Reason For Exam (VL Venous Duplex US Lower Ext Bilateral) bilateral sqwelling redness Report [facility] Lower Extremity Venous Duplex Report Patient DO GurpreetB: 1950 Study 10/21/2021 Name: Andrew Gonzalez (71yrs) Date: Age: 71 Account: [id number] Gender: M Loc: 444 BP: Ordering Physician: May Cash Moisture Meter Operator: Rody Cross RDMS, RVT Interpreting Physician: [...] supine position. Images were obtained using a [employer] vascular ultrasound machine. Venous flow and imaging: [...] + + (more content not included)... [facility] CALCANEUS LEFT (MIN 2 VIE WS)on 10-21-2021 Patient Name: ANDREW SIFUENTES Diagnostic Radiology ACCESSION EXAM DATE/TIME PROCEDURE ORDERING PROVIDER [id number] 10/21/2021 15:30 EDT CR Calcaneus 2+ Views [id number] -SHRUTHI MALIK Left CPT code 46582 Reason For Exam (CR Calcaneus 2+ Views [...] - 10/21/2021 [facility]: [id number] Radiology ACCESSION EXAM DATE/TIME PROCEDURE ORDERING PROVIDER [id number] 10/21/2021 15:30 EDT CR Calcaneus 2+ Views [id number] -SHRUTHI MALIK Left CPT code 66237 Reason For Exam (CR Calcaneus 2+ Views [...] Radiology ACCESSION EXAM DATE/TIME PROCEDURE ORDERING PROVIDER [id number] 10/21/2021 08:16 EDT CR Chest 1 View Frontal [id number] FOSTER CPT code 72021 Reason For Exam (CR Chest 1 View [...] OSAMA Transcribed Date and Time: 10/21/2021 8:33 [facility] Venus Loyd MD - 10/21/2021 Patient Name: ANDREW SIFUENTES Diagnostic Radiology ACCESSION EXAM DATE/TIME PROCEDURE ORDERING PROVIDER [id number] 10/21/2021 08:16 EDT CR Chest 1 View Frontal [id number] CONTI CPT code 77565 Reason For Exam (CR Chest 1 View [...] Date and Time: 10/21/2021 8:33 [facility] Work Phone: XR Chest 1 VWOrdered By: Natalie Loyd on 10-21-2021 [facility] Work Phone: Basophil percentageon 2021 Chloride [Moles/Vol] 108 mmol/L 98-107 [facility] Work Phone: [phone] Glucose [Mass/Vol] 93 mg/dL 74-106 [facility] Work Phone: Potassium [Moles/Vol] 3.9 mmol/L 3.5-5.1 [facility] Work Phone: Sodium [Moles/Vol] 140 mmol/L 136-145 [facility] Work Phone: WBC (Bld) [#/Vol] 8.7 10*3/uL 4.4-11.0 [facility] Work Phone: Blood erythrocytes count (nu mber/volume)on 10-20-2021 RBC (Bld) [#/Vol] 3.63 10*6/uL 4.6-6.2 [facility] Work Phone: Blood hemoglobin measurement (mass/volume)on 10-20-2021 Hemoglobin (Bld) [Mass/Vol] 10.1 g/dL 13.0-16.5 [facility] Work Phone: Blood platelet mean volumeon 10-20-2021 Platelet mean volume (Bld) [Entitic vol] 9.8 fL 6.2-12.0 [facility] Work Phone: Determination of erythrocyte mean corpuscular volume (MCV)on 10-20-2021 MCV (RBC) [Entitic vol] 90.1 fL 80-94 [facility] Work Phone: Hematocrit Auto (Bld) [Volum e fraction]on 10-20-2021 Hematocrit (Bld) [Volume fraction] 32.7 % 40-54 [facility] Work Phone: Laboratory - Chemistry and C hemistry - challengeon 10-20-2021 CO2 [Moles/Vol] 25.0 mmol/L 21.0-32.0 [facility] Work Phone: Urea nitrogen/Creatinine [Mass ratio] 17.4 mg/mg 10-20 [facility] Work Phone: Laboratory - Hematology and Cell countson 10-20-2021 Erythrocyte distribution width (RBC) [Entitic vol] 52.1 fL 35.1-43.9 [facility] Work Phone: Erythrocyte distribution width (RBC) [Ratio] 15.6 % 11.6-14.6 [facility] Work Phone: MCH (RBC) [Entitic mass] 27.8 pg 27.0-32.0 [facility] Work Phone: MCHC Auto (RBC) [Mass/Vol]on 10-20-2021 MCHC (RBC) [Mass/Vol] 30.9 g/dL 32-36 [facility] Work Phone: No Panel Informationon 10-20 Estimated GFR (MDRD) Amer 133 mL/min >60 [facility] Work Phone: Comment on above: GFR Calc Estimated GFR (MDRD) Non-Af Amer 110 mL/min >60 [facility] Work Phone: Comment on above: Non- GFR Calc Platelets bldon 10-20-2021 Platelets (Bld) [#/Vol] 404 10*3/uL 150-450 [facility] Work Phone: Serum or plasma calcium oral urement (mass/volume)on 10-20-2021 Calcium [Mass/Vol] 9.1 mg/dL 8.5-10.1 [facility] Work Phone: Serum or plasma creatinine m easurement (mass/volume)on 10-20-2021 Creatinine [Mass/Vol] 0.75 mg/dL 0.70-1.30 [facility] Work Phone: Comment on above: The validity of the calculated GFR & GFRAA in patients over 70 years has not been determined. Clinical correlation is essential. Serum or plasma urea nitroge n measurement (mass/volume)on 10-20-2021 Urea nitrogen [Mass/Vol] 13 mg/dL 7-18 [facility] Work Phone: Thin prep Papanicolaou smear with manual screeningon 10-20-2021 Thin prep Papanicolaou smear with manual screening 7 5-15 [facility] Work Phone: CNPNon 10-17-2021 CNPN Normal [facility] Absolute lymphocyte counton 09-19-2021 Lymphocytes Auto (Unsp spec) [#/Vol] 1.74 10*3/uL 0.83-4.51 [facility] Work Phone: Basophil percentageon 2021 Basophils/100 WBC (Bld) 0.6 % 0-1 [facility] Work Phone: Bilirubin [Mass/Vol] 0.30 mg/dL 0.20-1.00 [facility] Work Phone: Comment on above: For patients on eltr ombopag therapy, use of Dimension [place] TBIL is not recommended. Chloride [Moles/Vol] 105 mmol/L 98-107 [facility] Work Phone: Eosinophils/100 WBC (Bld) 3.5 % 0-5 [facility] Work Phone: Glucose [Mass/Vol] 91 mg/dL 74-106 [facility] Work Phone: Neutrophils (Bld) [#/Vol] 4.2 10*3/uL 2.0-7.7 [facility] Work Phone: Neutrophils/100 WBC (Bld) 62.6 % 47-70 [facility] Work Phone: [phone] Potassium [Moles/Vol] 3.8 mmol/L 3.5-5.1 [facility] Work Phone: [phone] Protein [Mass/Vol] 6.3 g/dL 6.4-8.2 [facility] Work Phone: Sodium [Moles/Vol] 139 mmol/L 136-145 [facility] Work Phone: WBC (Bld) [#/Vol] 6.6 10*3/uL 4.4-11.0 [facility] Work Phone: Blood erythrocytes count (nu mber/volume)on 09-19-2021 RBC (Bld) [#/Vol] 3.47 10*6/uL 4.6-6.2 [facility] Work Phone: Blood hemoglobin measurement (mass/volume)on 09-19-2021 Hemoglobin (Bld) [Mass/Vol] 10.2 g/dL 13.0-16.5 [facility] Work Phone: Blood lymphocytes/100 leukoc yteson 09-19-2021 Lymphocytes/100 WBC (Bld) 26.2 % 19-41 [facility] Work Phone: Blood monocytes/100 leukocyt eson 09-19-2021 Monocytes/100 WBC (Bld) 6.5 % 0-10 [facility] Work Phone: Blood platelet mean volumeon 09-19-2021 Platelet mean volume (Bld) [Entitic vol] 9.6 fL 6.2-12.0 [facility] Work Phone: Determination of erythrocyte mean corpuscular volume (MCV)on 09-19-2021 MCV (RBC) [Entitic vol] 94.8 fL 80-94 [facility] Work Phone: [phone] Hematocrit Auto (Bld) [Volum e fraction]on 09-19-2021 Hematocrit (Bld) [Volume fraction] 32.9 % 40-54 [facility] Work Phone: Laboratory - Chemistry and C hemistry - challengeon 09-19-2021 ALP [Catalytic activity/Vol] 109 U/L 45-117 [facility] Work Phone: ALT [Catalytic activity/Vol] 23 U/L 16-61 [facility] Work Phone: CO2 [Moles/Vol] 26.0 mmol/L 21.0-32.0 [facility] Work Phone: Globulin (S) [Mass/Vol] 3.5 g/dL 2.2-4.2 [facility] Work Phone: Urea nitrogen/Creatinine [Mass ratio] 15.3 mg/mg 10-20 [facility] Work Phone: Laboratory - Hematology and Cell countson 09-19-2021 Erythrocyte distribution width (RBC) [Entitic vol] 59.4 fL 35.1-43.9 [facility] Work Phone: Erythrocyte distribution width (RBC) [Ratio] 17.1 % 11.6-14.6 [facility] Work Phone: Immature granulocytes/100 WBC (Bld) 0.600 % 0.0-0.9 [facility] Work Phone: Comment on above: IG% - Immature Granu locytes (promyelocytes, myelocytes and metamyelocytes) > 1% indicates that a LEFT SHIFT is Present. MCH (RBC) [Entitic mass] 29.4 pg 27.0-32.0 [facility] Work Phone: Nucleated RBC/100 WBC (Bld) [Ratio] 0 % 0-5 [facility] Work Phone: MCHC Auto (RBC) [Mass/Vol]on 09-19-2021 MCHC (RBC) [Mass/Vol] 31.0 g/dL 32-36 [facility] Work Phone: No Panel Informationon 09-19 Estimated GFR (MDRD) Amer 175 mL/min >60 [facility] Work Phone: Comment on above: GFR Calc Estimated GFR (MDRD) Non-Af Amer 145 mL/min >60 [facility] Work Phone: Comment on above: Non- GFR Calc Platelets bldon 09-19-2021 Platelets (Bld) [#/Vol] 342 10*3/uL 150-450 [facility] Work Phone: Serum or plasma albumin oral urement (mass/volume)on 09-19-2021 Albumin [Mass/Vol] 2.8 g/dL 3.2-5.0 [facility] Work Phone: Serum or plasma albumin/glob ulin mass ratioon 09-19-2021 Albumin/Globulin [Mass ratio] 0.8 {ratio} 0.9-2.4 [facility] Work Phone: Serum or plasma calcium oral urement (mass/volume)on 09-19-2021 Calcium [Mass/Vol] 9.0 mg/dL 8.5-10.1 [facility] Work Phone: Serum or plasma creatinine m easurement (mass/volume)on 09-19-2021 Creatinine [Mass/Vol] 0.59 mg/dL 0.70-1.30 [facility] Work Phone: Comment on above: The validity of the calculated GFR & GFRAA in patients over 70 years has not been determined. Clinical correlation is essential. Serum or plasma urea nitroge n measurement (mass/volume)on 09-19-2021 Urea nitrogen [Mass/Vol] 9 mg/dL 7-18 [facility] Work Phone: Thin prep Papanicolaou smear with manual screeningon 09-19-2021 Thin prep Papanicolaou smear with manual screening 12 U/L 15-37 [facility] Work Phone: Thin prep Papanicolaou smear with manual screening 8 5-15 [facility] Work Phone: OPERATIVE NOon 08-22-2021 OPERATIVE NO Normal [facility] Basic metabolic 2000 panelon 08-19-2021 Anion gap [Moles/Vol] 10 mmol/L Normal 9-18 [facility] Comment on above: Order Comment: Speci men Type: BLOOD SPECIMENOrdering Facility: [facility] Address: [address] [place] [address] Performed By: #### 2 4321-2 ####[facility] LABORATORYCLIA [id number] [place] [address] [place] Calcium [Mass/Vol] 8.6 mg/dL Normal 8.5-10.2 [facility] Comment on above: Order Comment: Speci men Type: BLOOD SPECIMENOrdering Facility: [facility] Address: [address] [place] [address] Performed By: #### 2 4321-2 ####[facility] LABORATORYCLIA [id number] [place] [address] [place] Chloride [Moles/Vol] 99 mmol/L Normal 97-105 [facility] Comment on above: Order Comment: Speci men Type: BLOOD SPECIMENOrdering Facility: [facility] Address: [address] [place] [address] Performed By: #### 2 4321-2 ####[facility]ORATORYCLIA [id number] [place] [address] [place] CO2 [Moles/Vol] 29 mmol/L Normal 22-30 [facility] Comment on above: Order Comment: Speci men Type: BLOOD SPECIMENOrdering Facility: [facility] Address: [address] [place] [address] Performed By: #### 2 4321-2 ####[facility]ORATORYCLIA [id number] [place] [address] [place] Creatinine [Mass/Vol] 0.58 mg/dL Low 0.73-1.22 [facility] Comment on above: Order Comment: Speci men Type: BLOOD SPECIMENOrdering Facility: [facility] Address: [address] [place] [address] Performed By: #### 2 4321-2 ####[facility]ORATORYCLIA [id number] [place] [address] [place] ESTIMATED GLOMERULAR FILTRATION RATE 106 mL/min/1.73m??? Normal >=60 [facility] Comment on above: Order Comment: Shira feldman Type: BLOOD SPECIMENOrdering Facility: [facility] Address: [address] [place] [address] Result Comment: Luzmaria mated Glomerular Filtration Rate [...] actual GFR. Performed By: #### 2 4321-2 ####[facility] CENTERIA [id number] [place] [address] [place] Glucose [Mass/Vol] 101 mg/dL High 74-99 [facility] Comment on above: Order Comment: Shira feldman Type: BLOOD SPECIMENOrdering Facility: [facility] Address: [address] [place] [address] Result Comment: The [place] Diabetes Association (ADA) provides guidance for cutoff [...] Standards of Medical Care in Diabetes 2016, [place] [employer]. Diabetes Care. 2016.39(Suppl 1). Performed By: #### 2 4321-2 ####[facility] LABORATORYCLIA [id number] [place] [id number] [place] Potassium [Moles/Vol] 3.5 mmol/L Low 3.7-5.1 [facility] Comment on above: Order Comment: Speci men Type: BLOOD SPECIMENOrdering Facility: [facility] Address: [address] [place] [address] Performed By: #### 2 4321-2 ####[facility] LABORATORYCLIA [id number] [address] STATES OF [facility] Sodium [Moles/Vol] 138 mmol/L Normal 136-144 [facility] Comment on above: Order Comment: Speci men Type: BLOOD SPECIMENOrdering Facility: [facility] Address: [address] [place] [address] Performed By: #### 2 4321-2 ####[facility] LABORATORYCLIA [id number] [address] STATES OF [facility] Urea nitrogen [Mass/Vol] 11 mg/dL Normal 9-24 [facility] Comment on above: Order Comment: Speci men Type: BLOOD SPECIMENOrdering Facility: [facility] Address: [address] [place] [address] Performed By: #### 2 4321-2 ####[facility] LABORATORYCLIA [id number] [address] STATES OF [facility] CASE MANAGEMon 08-19-2021 CASE MANAGEM Normal [facility] CBC W Auto Differential pane l (Bld)on 08-19-2021 Basophils (Bld) [#/Vol] 0.03 10*3/uL Normal <0.11 [facility] Comment on above: Order Comment: Speci men Type: BLOOD SPECIMENOrdering Facility: [facility] Address: [address] [place] [address] Performed By: #### 5 7021-8 ####[facility] LABORATORYCLIA [id number] [address] STATES [facility] Basophils/100 WBC (Bld) 0.4 % Normal [facility] Comment on above: Order Comment: Speci men Type: BLOOD SPECIMENOrdering Facility: [facility] Address: [address] [place] [address] Performed By: #### 5 7021-8 ####[facility]ORATORYCLIA [id number] [address] Differential cell count method Nom (Bld) Auto Normal [facility] Comment on above: Order Comment: Speci men Type: BLOOD SPECIMENOrdering Facility: [facility] Address: [address] [place] [address] Performed By: #### 5 7021-8 ####[facility]ORATORYCLIA [id number] [address] Eosinophils (Bld) [#/Vol] 0.24 10*3/uL Normal <0.46 [facility] Comment on above: Order Comment: Speci men Type: BLOOD SPECIMENOrdering Facility: [facility] Address: [address] [place] [address] Performed By: #### 5 7021-8 ####[facility] LABORATORYCLIA [id number] [address] Eosinophils/100 WBC (Bld) 3.1 % Normal [facility] Comment on above: Order Comment: Speci men Type: BLOOD SPECIMENOrdering Facility: [facility] Address: [address] [place] [address] Performed By: #### 5 7021-8 ####[facility] LABORATORYCLIA [id number] [address] Erythrocyte distribution width (RBC) [Ratio] 17.5 % High 11.5-15.0 [facility] Comment on above: Order Comment: Speci men Type: BLOOD SPECIMENOrdering Facility: [facility] Address: [address] [place] [address] Performed By: #### 5 7021-8 ####[facility] LABORATORYCLIA [id number] [address] Hematocrit (Bld) [Volume fraction] 30.2 % Low 39.0-51.0 [facility] Comment on above: Order Comment: Speci men Type: BLOOD SPECIMENOrdering Facility: [facility] Address: [address] [place] [address] Performed By: #### 5 7021-8 ####[facility]ORATORYCLIA [id number] [address] Hemoglobin (Bld) [Mass/Vol] 9.6 g/dL Low 13.0-17.0 [facility] Comment on above: Order Comment: Speci men Type: BLOOD SPECIMENOrdering Facility: [facility] Address: [address] [place] [address] Performed By: #### 5 7021-8 ####[facility] LABORATORYCLIA [id number] [address] IMMATURE GRAN % 0.4 % Normal [facility] Comment on above: Order Comment: Speci men Type: BLOOD SPECIMENOrdering Facility: [facility] Address: [address] [place] [address] Performed By: #### 5 7021-8 ####[facility] LABORATORYCLIA [id number] [address] IMMATURE GRAN ABS 0.03 k/uL Normal <0.10 [facility] Comment on above: Order Comment: Speci men Type: BLOOD SPECIMENOrdering Facility: [facility] Address: [address] [place] [address] Performed By: #### 5 7021-8 ####[facility] LABORATORYCLIA [id number] [address] [place] Lymphocytes (Bld) [#/Vol] 1.71 10*3/uL Normal 1.00-4.00 [facility] Comment on above: Order Comment: Speci men Type: BLOOD SPECIMENOrdering Facility: [facility] Address: [address] [place] [address] Performed By: #### 5 7021-8 ####[facility]ORATORYCLIA [id number] [address] Lymphocytes/100 WBC (Bld) 22.2 % Normal [facility] Comment on above: Order Comment: Speci men Type: BLOOD SPECIMENOrdering Facility: [facility] Address: [address] [place] [address] Performed By: #### 5 7021-8 ####[facility] LABORATORYCLIA [id number] [address] MCH (RBC) [Entitic mass] 29.4 pg Normal 26.0-34.0 [facility] Comment on above: Order Comment: Speci men Type: BLOOD SPECIMENOrdering Facility: [facility] Address: [address] [place] [address] Performed By: #### 5 7021-8 ####[facility] LABORATORYCLIA [id number] [address] STATES [facility] MCHC (RBC) [Mass/Vol] 31.8 g/dL Normal 30.5-36.0 [facility] Comment on above: Order Comment: Speci men Type: BLOOD SPECIMENOrdering Facility: [facility] Address: [address] [place] [address] Performed By: #### 5 7021-8 ####[facility] LABORATORYCLIA [id number] [address] MCV (RBC) [Entitic vol] 92.6 fL Normal 80.0-100.0 [facility] Comment on above: Order Comment: Speci men Type: BLOOD SPECIMENOrdering Facility: [facility] Address: [address] [place] [address] Performed By: #### 5 7021-8 ####[facility] LABORATORYCLIA [id number] [address] Monocytes (Bld) [#/Vol] 0.50 10*3/uL Normal <0.87 [facility] Comment on above: Order Comment: Speci men Type: BLOOD SPECIMENOrdering Facility: [facility] Address: [address] [place] [address] Performed By: #### 5 7021-8 ####[facility] LABORATORYCLIA [id number] [place] [address] [place] Monocytes/100 WBC (Bld) 6.5 % Normal [facility] Comment on above: Order Comment: Speci men Type: BLOOD SPECIMENOrdering Facility: [facility] Address: [address] [place] [address] Performed By: #### 5 7021-8 ####[facility]ORATORYCLIA [id number] [place] [address] [place] Neutrophils (Bld) [#/Vol] 5.20 10*3/uL Normal 1.45-7.50 [facility] Comment on above: Order Comment: Speci men Type: BLOOD SPECIMENOrdering Facility: [facility] Address: [address] [place] [address] Performed By: #### 5 7021-8 ####[facility] LABORATORYCLIA [id number] [address] [place] Neutrophils/100 WBC (Bld) 67.4 % Normal [facility] Comment on above: Order Comment: Speci men Type: BLOOD SPECIMENOrdering Facility: [facility] Address: [address] [place] [address] Performed By: #### 5 7021-8 ####[facility]ORATORYCLIA [id number] [place] [address] [place] Nucleated RBC (Bld) [#/Vol] 10*3/uL Normal <0.01 [facility] Comment on above: Order Comment: Speci men Type: BLOOD SPECIMENOrdering Facility: [facility] Address: [address] [place] [address] Performed By: #### 5 7021-8 ####[facility] LABORATORYCLIA [id number] [place] [address] [place] Nucleated RBC/100 WBC (Bld) [Ratio] 0.0 /100 WBC Normal [facility] Comment on above: Order Comment: Speci men Type: BLOOD SPECIMENOrdering Facility: [facility] Address: [address] [place] [address] Performed By: #### 5 7021-8 ####[facility] LABORATORYCLIA [id number] [address] Platelet mean volume (Bld) [Entitic vol] 8.9 fL Low 9.0-12.7 [facility] Comment on above: Order Comment: Speci men Type: BLOOD SPECIMENOrdering Facility: [facility] Address: [address] [place] [address] Performed By: #### 5 7021-8 ####[facility] LABORATORYCLIA [id number] [address] [place] Platelets (Bld) [#/Vol] 408 10*3/uL High 150-400 [facility] Comment on above: Order Comment: Speci men Type: BLOOD SPECIMENOrdering Facility: [facility] Address: [address] [place] [address] Performed By: #### 5 7021-8 ####[facility] LABORATORYCLIA [id number] [address] [place] RBC (Bld) [#/Vol] 3.26 10*6/uL Low 4.20-6.00 [facility] Comment on above: Order Comment: Speci men Type: BLOOD SPECIMENOrdering Facility: [facility] Address: [address] [place] [address] Performed By: #### 5 7021-8 ####[facility] LABORATORYCLIA [id number] [address] [place] WBC (Bld) [#/Vol] 7.71 10*3/uL Normal 3.70-11.00 [facility] Comment on above: Order Comment: Speci men Type: BLOOD SPECIMENOrdering Facility: [facility] Address: [address] [place] [address] Performed By: #### 5 7021-8 ####[facility] LABORATORYCLIA [id number] [address] [place] CNDSon 08-19-2021 CNDS Normal [facility] CONSULT PROGon 08-19-2021 CONSULT PROG Normal [facility] THERAPY NTon 08-19-2021 THERAPY NT Normal [facility] Basic metabolic 2000 panelon 08-18-2021 Anion gap [Moles/Vol] 11 mmol/L Normal 9-18 [facility] Comment on above: Order Comment: Speci men Type: BLOOD SPECIMENOrdering Facility: [facility] Address: [address] [place] [address] Performed By: #### 2 4321-2 ####[facility] LABORATORYCLIA [id number] [place] [address] [place] Calcium [Mass/Vol] 8.6 mg/dL Normal 8.5-10.2 [facility] Comment on above: Order Comment: Speci men Type: BLOOD SPECIMENOrdering Facility: [facility] Address: [address] [place] [address] Performed By: #### 2 4321-2 ####[facility] LABORATORYCLIA [id number] [place] [address] [place] Chloride [Moles/Vol] 98 mmol/L Normal 97-105 [facility] Comment on above: Order Comment: Speci men Type: BLOOD SPECIMENOrdering Facility: [facility] Address: [address] [place] [address] Performed By: #### 2 4321-2 ####[facility] LABORATORYCLIA [id number] [place] [address] [place] CO2 [Moles/Vol] 28 mmol/L Normal 22-30 [facility] Comment on above: Order Comment: Speci men Type: BLOOD SPECIMENOrdering Facility: [facility] Address: [address] [place] [address] Performed By: #### 2 4321-2 ####[facility] LABORATORYCLIA [id number] [place] [address] [place] Creatinine [Mass/Vol] 0.56 mg/dL Low 0.73-1.22 [facility] Comment on above: Order Comment: Speci men Type: BLOOD SPECIMENOrdering Facility: [facility] Address: [address] [place] [address] Performed By: #### 2 4321-2 ####[facility] CENTERIA [id number] [address] ESTIMATED GLOMERULAR FILTRATION RATE 107 mL/min/1.73m??? Normal >=60 [facility] Comment on above: Order Comment: Shira francia Type: BLOOD SPECIMENOrdering Facility: [facility] Address: [address] [place] [address] Result Comment: Luzmaria mated Glomerular Filtration Rate [...] actual GFR. Performed By: #### 2 4321-2 ####[facility] CENTERIA [id number] [place] [address] [place] Glucose [Mass/Vol] 113 mg/dL High 74-99 [facility] Comment on above: Order Comment: Johncara feldman Type: BLOOD SPECIMENOrdering Facility: [facility] Address: [address] [place] [address] Result Comment: The [place] Diabetes Association (ADA) provides guidance for cutoff [...] Standards of Medical Care in Diabetes 2016, [place] Diabetes Association. Diabetes Care. 2016.39(Suppl 1). Performed By: #### 2 4321-2 ####[facility] LABORATORYCLIA [id number] [place] [address] [place] Potassium [Moles/Vol] 3.5 mmol/L Low 3.7-5.1 [facility] Comment on above: Order Comment: Speci men Type: BLOOD SPECIMENOrdering Facility: [facility] Address: [address] [place] [address] Performed By: #### 2 4321-2 ####[facility] LABORATORYCLIA [id number] [address] [place] Sodium [Moles/Vol] 137 mmol/L Normal 136-144 [facility] Comment on above: Order Comment: Speci men Type: BLOOD SPECIMENOrdering Facility: [facility] Address: [address] [place] [address] Performed By: #### 2 4321-2 ####[facility] LABORATORYCLIA [id number] [address] STATES [facility] Urea nitrogen [Mass/Vol] 10 mg/dL Normal 9-24 [facility] Comment on above: Order Comment: Speci men Type: BLOOD SPECIMENOrdering Facility: [facility] Address: [address] [place] [address] Performed By: #### 2 4321-2 ####[facility] LABORATORYCLIA [id number] [address] [place] CBC W Auto Differential pane l (Bld)on 08-18-2021 Basophils (Bld) [#/Vol] 10*3/uL Normal <0.11 [facility] Comment on above: Order Comment: Speci men Type: BLOOD SPECIMENOrdering Facility: [facility] Address: [address] [place] [address] Performed By: #### 5 7021-8 ####[facility] LABORATORYCLIA [id number] [address] [place] Basophils/100 WBC (Bld) 0.3 % Normal [facility] Comment on above: Order Comment: Speci men Type: BLOOD SPECIMENOrdering Facility: [facility] Address: [address] [place] [address] Performed By: #### 5 7021-8 ####[facility] LABORATORYCLIA [id number] [address] Differential cell count method Nom (Bld) Auto Normal [facility] Comment on above: Order Comment: Speci men Type: BLOOD SPECIMENOrdering Facility: [facility] Address: [address] [place] [address] Performed By: #### 5 7021-8 ####[facility] LABORATORYCLIA [id number] [address] [place] Eosinophils (Bld) [#/Vol] 0.37 10*3/uL Normal <0.46 [facility] Comment on above: Order Comment: Speci men Type: BLOOD SPECIMENOrdering Facility: [facility] Address: [address] [place] [address] Performed By: #### 5 7021-8 ####[facility] LABORATORYCLIA [id number] [address] Eosinophils/100 WBC (Bld) 4.8 % Normal [facility] Comment on above: Order Comment: Speci men Type: BLOOD SPECIMENOrdering Facility: [facility] Address: [address] [place] [address] Performed By: #### 5 7021-8 ####[facility] LABORATORYCLIA [id number] [address] Erythrocyte distribution width (RBC) [Ratio] 17.5 % High 11.5-15.0 [facility] Comment on above: Order Comment: Speci men Type: BLOOD SPECIMENOrdering Facility: [facility] Address: [address] [place] [address] Performed By: #### 5 7021-8 ####[facility] LABORATORYCLIA [id number] [address] [place] Hematocrit (Bld) [Volume fraction] 30.2 % Low 39.0-51.0 [facility] Comment on above: Order Comment: Speci men Type: BLOOD SPECIMENOrdering Facility: [facility] Address: [address] [place] [address] Performed By: #### 5 7021-8 ####[facility] LABORATORYCLIA [id number] [address] OF [facility] Hemoglobin (Bld) [Mass/Vol] 9.5 g/dL Low 13.0-17.0 [facility] Comment on above: Order Comment: Speci men Type: BLOOD SPECIMENOrdering Facility: [facility] Address: [address] [place] [address] Performed By: #### 5 7021-8 ####[facility] LABORATORYCLIA [id number] [address] IMMATURE GRAN % 0.4 % Normal [facility] Comment on above: Order Comment: Speci men Type: BLOOD SPECIMENOrdering Facility: [facility] Address: [address] [place] [address] Performed By: #### 5 7021-8 ####[facility] LABORATORYCLIA [id number] [address] IMMATURE GRAN ABS 0.03 k/uL Normal <0.10 [facility] Comment on above: Order Comment: Speci men Type: BLOOD SPECIMENOrdering Facility: [facility] Address: [address] [place] [address] Performed By: #### 5 7021-8 ####[facility] LABORATORYCLIA [id number] [address] [place] Lymphocytes (Bld) [#/Vol] 1.85 10*3/uL Normal 1.00-4.00 [facility] Comment on above: Order Comment: Speci men Type: BLOOD SPECIMENOrdering Facility: [facility] Address: [address] [place] [address] Performed By: #### 5 7021-8 ####[facility] LABORATORYCLIA [id number] [address] Lymphocytes/100 WBC (Bld) 23.8 % Normal [facility] Comment on above: Order Comment: Speci men Type: BLOOD SPECIMENOrdering Facility: [facility] Address: [address] [place] [address] Performed By: #### 5 7021-8 ####[facility] LABORATORYCLIA [id number] [address] MCH (RBC) [Entitic mass] 29.5 pg Normal 26.0-34.0 [facility] Comment on above: Order Comment: Speci men Type: BLOOD SPECIMENOrdering Facility: [facility] Address: [address] [place] [address] Performed By: #### 5 7021-8 ####[facility] LABORATORYCLIA [id number] [address] MCHC (RBC) [Mass/Vol] 31.5 g/dL Normal 30.5-36.0 [facility] Comment on above: Order Comment: Speci men Type: BLOOD SPECIMENOrdering Facility: [facility] Address: [address] [place] [address] Performed By: #### 5 7021-8 ####[facility] LABORATORYCLIA [id number] [address] MCV (RBC) [Entitic vol] 93.8 fL Normal 80.0-100.0 [facility] Comment on above: Order Comment: Speci men Type: BLOOD SPECIMENOrdering Facility: [facility] Address: [address] [place] [address] Performed By: #### 5 7021-8 ####[facility] LABORATORYCLIA [id number] [address] Monocytes (Bld) [#/Vol] 0.49 10*3/uL Normal <0.87 [facility] Comment on above: Order Comment: Speci men Type: BLOOD SPECIMENOrdering Facility: [facility] Address: [address] [place] [address] Performed By: #### 5 7021-8 ####[facility]ORATORYCLIA [id number] [address] [place] Monocytes/100 WBC (Bld) 6.3 % Normal [facility] Comment on above: Order Comment: Speci men Type: BLOOD SPECIMENOrdering Facility: [facility] Address: [address] [place] [address] Performed By: #### 5 7021-8 ####[facility]ORATORYCLIA [id number] [place] [address] [place] Neutrophils (Bld) [#/Vol] 5.00 10*3/uL Normal 1.45-7.50 [facility] Comment on above: Order Comment: Speci men Type: BLOOD SPECIMENOrdering Facility: [facility] Address: [address] [place] [address] Performed By: #### 5 7021-8 ####[facility] LABORATORYCLIA [id number] [address] Neutrophils/100 WBC (Bld) 64.4 % Normal [facility] Comment on above: Order Comment: Speci men Type: BLOOD SPECIMENOrdering Facility: [facility] Address: [address] [place] [address] Performed By: #### 5 7021-8 ####[facility] LABORATORYCLIA [id number] [address] [place] Nucleated RBC (Bld) [#/Vol] 10*3/uL Normal <0.01 [facility] Comment on above: Order Comment: Speci men Type: BLOOD SPECIMENOrdering Facility: [facility] Address: [address] [place] [address] Performed By: #### 5 7021-8 ####[facility]ATORYCLIA [id number] [address] [place] Nucleated RBC/100 WBC (Bld) [Ratio] 0.0 /100 WBC Normal [facility] Comment on above: Order Comment: Speci men Type: BLOOD SPECIMENOrdering Facility: [facility] Address: [address] [place], [place] [address] Performed By: #### 5 7021-8 ####[facility] LABORATORYCLIA [id number] [address] Platelet mean volume (Bld) [Entitic vol] 9.1 fL Normal 9.0-12.7 [facility] Comment on above: Order Comment: Speci men Type: BLOOD SPECIMENOrdering Facility: [facility] Address: [address] [place], [place] [address] Performed By: #### 5 7021-8 ####[facility]ORATORYCLIA [id number] [address] [place] Platelets (Bld) [#/Vol] 391 10*3/uL Normal 150-400 [facility] Comment on above: Order Comment: Speci men Type: BLOOD SPECIMENOrdering Facility: [facility] Address: [address] [place] [address] Performed By: #### 5 7021-8 ####[facility]ORATORYCLIA [id number] [place] [address] [place] RBC (Bld) [#/Vol] 3.22 10*6/uL Low 4.20-6.00 [facility] Comment on above: Order Comment: Speci men Type: BLOOD SPECIMENOrdering Facility: [facility] Address: [address] [place], [place] [address] Performed By: #### 5 7021-8 ####[facility] LABORATORYCLIA [id number] [address] [place] WBC (Bld) [#/Vol] 7.76 10*3/uL Normal 3.70-11.00 [facility] Comment on above: Order Comment: Speci men Type: BLOOD SPECIMENOrdering Facility: [facility] Address: [address] [place] [address] Performed By: #### 5 7021-8 ####[facility] LABORATORYCLIA [id number] [address] [place] CONSULT PROGon 08-18-2021 CONSULT PROG Normal [facility] CASE MANAGEMon 08-17-2021 CASE MANAGEM Normal [facility] CBC W Auto Differential pane l (Bld)on 08-17-2021 Basophils (Bld) [#/Vol] 0.04 10*3/uL Normal <0.11 [facility] Comment on above: Order Comment: Speci men Type: BLOOD SPECIMENOrdering Facility: [facility] Address: [address] [place] [address] Performed By: #### 5 7021-8 ####[facility]ORATORYCLIA [id number] [address] [place] Basophils/100 WBC (Bld) 0.5 % Normal [facility] Comment on above: Order Comment: Speci men Type: BLOOD SPECIMENOrdering Facility: [facility] Address: [address] [place] [address] Performed By: #### 5 7021-8 ####[facility]ORATORYCLIA [id number] [address] [place] Differential cell count method Nom (Bld) Auto Normal [facility] Comment on above: Order Comment: Speci men Type: BLOOD SPECIMENOrdering Facility: [facility] Address: [address] [place] [address] Performed By: #### 5 7021-8 ####[facility]ORATORYCLIA [id number] [place] [address] [place] Eosinophils (Bld) [#/Vol] 0.31 10*3/uL Normal <0.46 [facility] Comment on above: Order Comment: Speci men Type: BLOOD SPECIMENOrdering Facility: [facility] Address: [address] [place] [address] Performed By: #### 5 7021-8 ####[facility]ORATORYCLIA [id number] [address] [place] Eosinophils/100 WBC (Bld) 3.7 % Normal [facility] Comment on above: Order Comment: Speci men Type: BLOOD SPECIMENOrdering Facility: [facility] Address: [address] [place] [address] Performed By: #### 5 7021-8 ####[facility]ORATORYCLIA [id number] [address] Erythrocyte distribution width (RBC) [Ratio] 17.4 % High 11.5-15.0 [facility] Comment on above: Order Comment: Speci men Type: BLOOD SPECIMENOrdering Facility: [facility] Address: [address] [place] [address] Performed By: #### 5 7021-8 ####[facility]ORATORYCLIA [id number] [address] Hematocrit (Bld) [Volume fraction] 30.6 % Low 39.0-51.0 [facility] Comment on above: Order Comment: Speci men Type: BLOOD SPECIMENOrdering Facility: [facility] Address: [address] [place] [address] Performed By: #### 5 7021-8 ####[facility] LABORATORYCLIA [id number] [address] [place] Hemoglobin (Bld) [Mass/Vol] 9.6 g/dL Low 13.0-17.0 [facility] Comment on above: Order Comment: Speci men Type: BLOOD SPECIMENOrdering Facility: [facility] Address: [address] [place] [address] Performed By: #### 5 7021-8 ####[facility]ORATORYCLIA [id number] [address] [place] IMMATURE GRAN % 0.2 % Normal [facility] Comment on above: Order Comment: Speci men Type: BLOOD SPECIMENOrdering Facility: [facility] Address: [address] [place] [address] Performed By: #### 5 7021-8 ####[facility]ORATORYCLIA [id number] [address] IMMATURE GRAN ABS <0.03 Normal <0.10 [facility] Comment on above: Order Comment: Speci men Type: BLOOD SPECIMENOrdering Facility: [facility] Address: [address] [place] [address] Performed By: #### 5 7021-8 ####[facility] LABORATORYCLIA [id number] [address] [place] Lymphocytes (Bld) [#/Vol] 1.66 10*3/uL Normal 1.00-4.00 [facility] Comment on above: Order Comment: Speci men Type: BLOOD SPECIMENOrdering Facility: [facility] Address: [address] [place] [address] Performed By: #### 5 7021-8 ####[facility]ORATORYCLIA [id number] [address] Lymphocytes/100 WBC (Bld) 19.9 % Normal [facility] Comment on above: Order Comment: Speci men Type: BLOOD SPECIMENOrdering Facility: [facility] Address: [address] [place] [address] Performed By: #### 5 7021-8 ####[facility] LABORATORYCLIA [id number] [address] MCH (RBC) [Entitic mass] 28.9 pg Normal 26.0-34.0 [facility] Comment on above: Order Comment: Speci men Type: BLOOD SPECIMENOrdering Facility: [facility] Address: [address] [place] [address] Performed By: #### 5 7021-8 ####[facility] LABORATORYCLIA [id number] [address] MCHC (RBC) [Mass/Vol] 31.4 g/dL Normal 30.5-36.0 [facility] Comment on above: Order Comment: Speci men Type: BLOOD SPECIMENOrdering Facility: [facility] Address: [address] [place] [address] Performed By: #### 5 7021-8 ####[facility] LABORATORYCLIA [id number] [place] [address] [place] MCV (RBC) [Entitic vol] 92.2 fL Normal 80.0-100.0 [facility] Comment on above: Order Comment: Speci men Type: BLOOD SPECIMENOrdering Facility: [facility] Address: [address] [place] [address] Performed By: #### 5 7021-8 ####[facility]ORATORYCLIA [id number] [address] [place] Monocytes (Bld) [#/Vol] 0.52 10*3/uL Normal <0.87 [facility] Comment on above: Order Comment: Speci men Type: BLOOD SPECIMENOrdering Facility: [facility] Address: [address] [place] [address] Performed By: #### 5 7021-8 ####[facility]ORATORYCLIA [id number] [address] STATES [facility] Monocytes/100 WBC (Bld) 6.2 % Normal [facility] Comment on above: Order Comment: Speci men Type: BLOOD SPECIMENOrdering Facility: [facility] Address: [address] [place] [address] Performed By: #### 5 7021-8 ####[facility] LABORATORYCLIA [id number] [address] [place] Neutrophils (Bld) [#/Vol] 5.78 10*3/uL Normal 1.45-7.50 [facility] Comment on above: Order Comment: Speci men Type: BLOOD SPECIMENOrdering Facility: [facility] Address: [address] [place] [address] Performed By: #### 5 7021-8 ####[facility]ORATORYCLIA [id number] [address] [place] Neutrophils/100 WBC (Bld) 69.5 % Normal [facility] Comment on above: Order Comment: Speci men Type: BLOOD SPECIMENOrdering Facility: [facility] Address: [address] Performed By: #### 5 7021-8 ####[facility]ORATORYCLIA [id number] [address] Nucleated RBC (Bld) [#/Vol] 10*3/uL Normal <0.01 [facility] Comment on above: Order Comment: Speci men Type: BLOOD SPECIMENOrdering Facility: [facility] Address: [address] [place], [place] [address] Performed By: #### 5 7021-8 ####[facility]ORATORYCLIA [id number] [address] Nucleated RBC/100 WBC (Bld) [Ratio] 0.0 /100 WBC Normal [facility] Comment on above: Order Comment: Speci men Type: BLOOD SPECIMENOrdering Facility: [facility] Address: [address] [place], [place] [address] Performed By: #### 5 7021-8 ####[facility]ORATORYCLIA [id number] [address] STATES [facility] Platelet mean volume (Bld) [Entitic vol] 9.2 fL Normal 9.0-12.7 [facility] Comment on above: Order Comment: Speci men Type: BLOOD SPECIMENOrdering Facility: [facility] Address: [address] [place], [place] [address] Performed By: #### 5 7021-8 ####[facility]ORATORYCLIA [id number] [address] STATES [facility] Platelets (Bld) [#/Vol] 379 10*3/uL Normal 150-400 [facility] Comment on above: Order Comment: Speci men Type: BLOOD SPECIMENOrdering Facility: [facility] Address: [address] [place], [place] [address] Performed By: #### 5 7021-8 ####[facility] LABORATORYCLIA [id number] [place] [address] [place] RBC (Bld) [#/Vol] 3.32 10*6/uL Low 4.20-6.00 [facility] Comment on above: Order Comment: Speci men Type: BLOOD SPECIMENOrdering Facility: [facility] Address: [address] [place] [address] Performed By: #### 5 7021-8 ####[facility]ORATORYCLIA [id number] [place] [address] [place] WBC (Bld) [#/Vol] 8.33 10*3/uL Normal 3.70-11.00 [facility] Comment on above: Order Comment: Speci men Type: BLOOD SPECIMENOrdering Facility: [facility] Address: [address] [place] [address] Performed By: #### 5 7021-8 ####[facility] LABORATORYCLIA [id number] [address] OF [facility] CONSULT PROGon 08-17-2021 CONSULT PROG Normal [facility] NUTRITIONon 08-17-2021 NUTRITION Normal [facility] Basic metabolic 2000 panelon 08-16-2021 Anion gap [Moles/Vol] 14 mmol/L Normal 9-18 [facility] Comment on above: Order Comment: Speci men Type: BLOOD SPECIMENOrdering Facility: [facility] Address: [address] [place] [address] Performed By: #### 2 4321-2, 90171-9 ####[facility]ORATORYCLIA [id number] [address] [place] Calcium [Mass/Vol] 8.8 mg/dL Normal 8.5-10.2 [facility] Comment on above: Order Comment: Speci men Type: BLOOD SPECIMENOrdering Facility: [facility] Address: [address] [place] [address] Performed By: #### 2 4321-2, 95804-9 ####[facility]ORATORYCLIA [id number] [address] [place] Chloride [Moles/Vol] 97 mmol/L Normal 97-105 [facility] Comment on above: Order Comment: Speci men Type: BLOOD SPECIMENOrdering Facility: [facility] Address: [address] [place] [address] Performed By: #### 2 4322, ####[facility]ORATORYCLIA [id number] [place] [address] [place] CO2 [Moles/Vol] 27 mmol/L Normal 22-30 [facility] Comment on above: Order Comment: Speci men Type: BLOOD SPECIMENOrdering Facility: [facility] Address: [address] [place] [address] Performed By: #### 2 4322, ####[facility]PITALCLIA [id number] [address] STATES OF [facility] Creatinine [Mass/Vol] 0.50 mg/dL Low 0.73-1.22 [facility] Comment on above: Order Comment: Speci men Type: BLOOD SPECIMENOrdering Facility: [facility] Address: [address] [place] [address] Performed By: #### 2 4320-06, ####[facility]ORATORYCLIA [id number] [address] ESTIMATED GLOMERULAR FILTRATION RATE 110 mL/min/1.73m??? Normal >=60 [facility] Comment on above: Order Comment: Speci men Type: BLOOD SPECIMENOrdering Facility: [facility] Address: [address] [place] [address] Result Comment: Luzmaria mated Glomerular Filtration Rate [...] actual GFR. Performed By: #### 2 2, ####[facility]ORATORYCLIA [id number] [place] [address] [place] Glucose [Mass/Vol] 101 mg/dL High 74-99 [facility] Comment on above: Order Comment: Shira feldman Type: BLOOD SPECIMENOrdering Facility: [facility] Address: [address] [place] [address] Result Comment: The [place] Diabetes Association (ADA) provides guidance for cutoff [...] Standards of Medical Care in Diabetes 2016, [place] [employer]. Diabetes Care. 2016.39(Suppl 1). Performed By: #### 2 ####[facility]ORATORYCLIA [id number] [place] [address] [place] Potassium [Moles/Vol] 3.6 mmol/L Low 3.7-5.1 [facility] Comment on above: Order Comment: Shira feldman Type: BLOOD SPECIMENOrdering Facility: [facility] Address: [address] [place] [address] Performed By: #### 2 ####[facility]ORATORYCLIA [id number] [place] [address] [place] Sodium [Moles/Vol] 138 mmol/L Normal 136-144 [facility] Comment on above: Order Comment: Shira feldman Type: BLOOD SPECIMENOrdering Facility: [facility] Address: [address] [place] [address] Performed By: #### 2 ####[facility]ORATORYCLIA [id number] [place] [address] [place] Urea nitrogen [Mass/Vol] 11 mg/dL Normal 9-24 [facility] Comment on above: Order Comment: Speci men Type: BLOOD SPECIMENOrdering Facility: [facility] Address: [address] [place] [address] Performed By: #### 2 4321-2, 00634-5 ####[facility] LABORATORYCLIA [id number] [address] [place] CASE MANAGEMon 08-16-2021 CASE MANAGEM Normal [facility] CBC W Auto Differential pane l (Bld)on 08-16-2021 Basophils (Bld) [#/Vol] 0.03 10*3/uL Normal <0.11 [facility] Comment on above: Order Comment: Speci men Type: BLOOD SPECIMENOrdering Facility: [facility] Address: [address] [place] [address] Performed By: #### 5 7021-8 ####[facility]ORATORYCLIA [id number] [address] [place] Basophils/100 WBC (Bld) 0.4 % Normal [facility] Comment on above: Order Comment: Speci men Type: BLOOD SPECIMENOrdering Facility: [facility] Address: [address] [place] [address] Performed By: #### 5 7021-8 ####[facility]ORATORYCLIA [id number] [address] [place] Differential cell count method Nom (Bld) Auto Normal [facility] Comment on above: Order Comment: Speci men Type: BLOOD SPECIMENOrdering Facility: [facility] Address: [address] [place] [address] Performed By: #### 5 7021-8 ####[facility]ORATORYCLIA [id number] [place] [address] [place] Eosinophils (Bld) [#/Vol] 0.19 10*3/uL Normal <0.46 [facility] Comment on above: Order Comment: Speci men Type: BLOOD SPECIMENOrdering Facility: [facility] Address: [address] [place] [address] Performed By: #### 5 7021-8 ####[facility]ATORYCLIA [id number] [address] Eosinophils/100 WBC (Bld) 2.5 % Normal [facility] Comment on above: Order Comment: Speci men Type: BLOOD SPECIMENOrdering Facility: [facility] Address: [address] [place] [address] Performed By: #### 5 7021-8 ####[facility] LABORATORYCLIA [id number] [address] Erythrocyte distribution width (RBC) [Ratio] 17.1 % High 11.5-15.0 [facility] Comment on above: Order Comment: Speci men Type: BLOOD SPECIMENOrdering Facility: [facility] Address: [address] [place] [address] Performed By: #### 5 7021-8 ####[facility]ORATORYCLIA [id number] [address] Hematocrit (Bld) [Volume fraction] 29.2 % Low 39.0-51.0 [facility] Comment on above: Order Comment: Speci men Type: BLOOD SPECIMENOrdering Facility: [facility] Address: [address] [place] [address] Performed By: #### 5 7021-8 ####[facility]ORATORYCLIA [id number] [address] Hemoglobin (Bld) [Mass/Vol] 9.0 g/dL Low 13.0-17.0 [facility] Comment on above: Order Comment: Speci men Type: BLOOD SPECIMENOrdering Facility: [facility] Address: [address] [place] [address] Performed By: #### 5 7021-8 ####[facility]ATORYCLIA [id number] [address] [place] IMMATURE GRAN % 0.3 % Normal [facility] Comment on above: Order Comment: Speci men Type: BLOOD SPECIMENOrdering Facility: [facility] Address: [address] [place] [address] Performed By: #### 5 7021-8 ####[facility]ORATORYCLIA [id number] [address] IMMATURE GRAN ABS <0.03 Normal <0.10 [facility] Comment on above: Order Comment: Speci men Type: BLOOD SPECIMENOrdering Facility: [facility] Address: [address] [place] [address] Performed By: #### 5 7021-8 ####[facility] LABORATORYCLIA [id number] [address] Lymphocytes (Bld) [#/Vol] 1.41 10*3/uL Normal 1.00-4.00 [facility] Comment on above: Order Comment: Speci men Type: BLOOD SPECIMENOrdering Facility: [facility] Address: [address] [place] [address] Performed By: #### 5 7021-8 ####[facility]ORATORYCLIA [id number] [address] Lymphocytes/100 WBC (Bld) 18.4 % Normal [facility] Comment on above: Order Comment: Speci men Type: BLOOD SPECIMENOrdering Facility: [facility] Address: [address] [place] [address] Performed By: #### 5 7021-8 ####[facility] LABORATORYCLIA [id number] [address] MCH (RBC) [Entitic mass] 28.0 pg Normal 26.0-34.0 [facility] Comment on above: Order Comment: Speci men Type: BLOOD SPECIMENOrdering Facility: [facility] Address: [address] [place] [address] Performed By: #### 5 7021-8 ####[facility] LABORATORYCLIA [id number] [address] MCHC (RBC) [Mass/Vol] 30.8 g/dL Normal 30.5-36.0 [facility] Comment on above: Order Comment: Speci men Type: BLOOD SPECIMENOrdering Facility: [facility] Address: [address] [place] [address] Performed By: #### 5 7021-8 ####[facility] LABORATORYCLIA [id number] [address] [place] MCV (RBC) [Entitic vol] 91.0 fL Normal 80.0-100.0 [facility] Comment on above: Order Comment: Speci men Type: BLOOD SPECIMENOrdering Facility: [facility] Address: [address] [place] [address] Performed By: #### 5 7021-8 ####[facility] LABORATORYCLIA [id number] [address] STATES [facility] Monocytes (Bld) [#/Vol] 0.47 10*3/uL Normal <0.87 [facility] Comment on above: Order Comment: Speci men Type: BLOOD SPECIMENOrdering Facility: [facility] Address: [address] [place] [address] Performed By: #### 5 7021-8 ####[facility]ORATORYCLIA [id number] [address] Monocytes/100 WBC (Bld) 6.1 % Normal [facility] Comment on above: Order Comment: Speci men Type: BLOOD SPECIMENOrdering Facility: [facility] Address: [address] [place] [address] Performed By: #### 5 7021-8 ####[facility] LABORATORYCLIA [id number] [address] [place] Neutrophils (Bld) [#/Vol] 5.55 10*3/uL Normal 1.45-7.50 [facility] Comment on above: Order Comment: Speci men Type: BLOOD SPECIMENOrdering Facility: [facility] Address: [address] [place], [place] [id number] Performed By: #### 5 7021-8 ####[facility] LABORATORYCLIA [id number] [address] Neutrophils/100 WBC (Bld) 72.3 % Normal [facility] Comment on above: Order Comment: Speci men Type: BLOOD SPECIMENOrdering Facility: [facility] Address: [address] [place] [address] Performed By: #### 5 7021-8 ####[facility]ORATORYCLIA [id number] [address] [place] Nucleated RBC (Bld) [#/Vol] 10*3/uL Normal <0.01 [facility] Comment on above: Order Comment: Speci men Type: BLOOD SPECIMENOrdering Facility: [facility] Address: [address] [place] [address] Performed By: #### 5 7021-8 ####[facility] LABORATORYCLIA [id number] [address] Nucleated RBC/100 WBC (Bld) [Ratio] 0.0 /100 WBC Normal [facility] Comment on above: Order Comment: Speci men Type: BLOOD SPECIMENOrdering Facility: [facility] Address: [address] [place] [address] Performed By: #### 5 7021-8 ####[facility] LABORATORYCLIA [id number] [address] [place] Platelet mean volume (Bld) [Entitic vol] 9.3 fL Normal 9.0-12.7 [facility] Comment on above: Order Comment: Speci men Type: BLOOD SPECIMENOrdering Facility: [facility] Address: [address] [place] [address] Performed By: #### 5 7021-8 ####[facility]ATORYCLIA [id number] [address] [place] Platelets (Bld) [#/Vol] 319 10*3/uL Normal 150-400 [facility] Comment on above: Order Comment: Speci men Type: BLOOD SPECIMENOrdering Facility: [facility] Address: [address] [place] [address] Performed By: #### 5 7021-8 ####[facility] LABORATORYCLIA [id number] [address] [place] RBC (Bld) [#/Vol] 3.21 10*6/uL Low 4.20-6.00 [facility] Comment on above: Order Comment: Speci men Type: BLOOD SPECIMENOrdering Facility: [facility] Address: [address] [place] [address] Performed By: #### 5 7021-8 ####[facility] LABORATORYCLIA [id number] [address] [place] WBC (Bld) [#/Vol] 7.67 10*3/uL Normal 3.70-11.00 [facility] Comment on above: Order Comment: Speci men Type: BLOOD SPECIMENOrdering Facility: [facility] Address: [address] [place] [address] Performed By: #### 5 7021-8 ####[facility] LABORATORYCLIA [id number] [address] [place] Basophils (Bld) [#/Vol] 0.04 10*3/uL Normal <0.11 [facility] Comment on above: Order Comment: Speci men Type: BLOOD SPECIMENOrdering Facility: [facility] Address: [address] [place] [address] Performed By: #### 5 7021-8 ####[facility] LABORATORYCLIA [id number] [address] [place] Basophils/100 WBC (Bld) 0.5 % Normal [facility] Comment on above: Order Comment: Speci men Type: BLOOD SPECIMENOrdering Facility: [facility] Address: [address] [place] [address] Performed By: #### 5 7021-8 ####[facility] LABORATORYCLIA [id number] [address] Differential cell count method Nom (Bld) Auto Normal [facility] Comment on above: Order Comment: Speci men Type: BLOOD SPECIMENOrdering Facility: [facility] Address: [address] [place] [address] Performed By: #### 5 7021-8 ####[facility] LABORATORYCLIA [id number] [address] [place] Eosinophils (Bld) [#/Vol] 0.19 10*3/uL Normal <0.46 [facility] Comment on above: Order Comment: Speci men Type: BLOOD SPECIMENOrdering Facility: [facility] Address: [address] [place] [address] Performed By: #### 5 7021-8 ####[facility]ORATORYCLIA [id number] [address] Eosinophils/100 WBC (Bld) 2.5 % Normal [facility] Comment on above: Order Comment: Speci men Type: BLOOD SPECIMENOrdering Facility: [facility] Address: [address] [place] [address] Performed By: #### 5 7021-8 ####[facility] LABORATORYCLIA [id number] [address] Erythrocyte distribution width (RBC) [Ratio] 17.2 % High 11.5-15.0 [facility] Comment on above: Order Comment: Speci men Type: BLOOD SPECIMENOrdering Facility: [facility] Address: [address] [place] [address] Performed By: #### 5 7021-8 ####[facility] LABORATORYCLIA [id number] [address] [place] Hematocrit (Bld) [Volume fraction] 29.5 % Low 39.0-51.0 [facility] Comment on above: Order Comment: Speci men Type: BLOOD SPECIMENOrdering Facility: [facility] Address: [address] [place] [address] Performed By: #### 5 7021-8 ####[facility] LABORATORYCLIA [id number] [address] STATES OF [facility] Hemoglobin (Bld) [Mass/Vol] 9.2 g/dL Low 13.0-17.0 [facility] Comment on above: Order Comment: Speci men Type: BLOOD SPECIMENOrdering Facility: [facility] Address: [address] [place] [address] Performed By: #### 5 7021-8 ####[facility]ORATORYCLIA [id number] [address] IMMATURE GRAN % 0.4 % Normal [facility] Comment on above: Order Comment: Speci men Type: BLOOD SPECIMENOrdering Facility: [facility] Address: [address] [place] [address] Performed By: #### 5 7021-8 ####[facility]ORATORYCLIA [id number] [address] IMMATURE GRAN ABS 0.03 k/uL Normal <0.10 [facility] Comment on above: Order Comment: Speci men Type: BLOOD SPECIMENOrdering Facility: [facility] Address: [address] [place] [address] Performed By: #### 5 7021-8 ####[facility]ORATORYCLIA [id number] [address] [place] Lymphocytes (Bld) [#/Vol] 1.50 10*3/uL Normal 1.00-4.00 [facility] Comment on above: Order Comment: Speci men Type: BLOOD SPECIMENOrdering Facility: [facility] Address: [address] [place] [address] Performed By: #### 5 7021-8 ####[facility] LABORATORYCLIA [id number] [address] Lymphocytes/100 WBC (Bld) 19.7 % Normal [facility] Comment on above: Order Comment: Speci men Type: BLOOD SPECIMENOrdering Facility: [facility] Address: [address] [place] [address] Performed By: #### 5 7021-8 ####[facility] LABORATORYCLIA [id number] [address] MCH (RBC) [Entitic mass] 28.3 pg Normal 26.0-34.0 [facility] Comment on above: Order Comment: Speci men Type: BLOOD SPECIMENOrdering Facility: [facility] Address: [address] [place] [address] Performed By: #### 5 7021-8 ####[facility]ORATORYCLIA [id number] [address] MCHC (RBC) [Mass/Vol] 31.2 g/dL Normal 30.5-36.0 [facility] Comment on above: Order Comment: Speci men Type: BLOOD SPECIMENOrdering Facility: [facility] Address: [address] [place] [address] Performed By: #### 5 7021-8 ####[facility] LABORATORYCLIA [id number] [address] STATES [facility] MCV (RBC) [Entitic vol] 90.8 fL Normal 80.0-100.0 [facility] Comment on above: Order Comment: Speci men Type: BLOOD SPECIMENOrdering Facility: [facility] Address: [address] [place] [address] Performed By: #### 5 7021-8 ####[facility] LABORATORYCLIA [id number] [address] Monocytes (Bld) [#/Vol] 0.49 10*3/uL Normal <0.87 [facility] Comment on above: Order Comment: Speci men Type: BLOOD SPECIMENOrdering Facility: [facility] Address: [address] [place] [address] Performed By: #### 5 7021-8 ####[facility]ORATORYCLIA [id number] [address] Monocytes/100 WBC (Bld) 6.4 % Normal [facility] Comment on above: Order Comment: Speci men Type: BLOOD SPECIMENOrdering Facility: [facility] Address: [address] [address] Performed By: #### 5 7021-8 ####[facility]ATORYCLIA [id number] [address] [place] Neutrophils (Bld) [#/Vol] 5.38 10*3/uL Normal 1.45-7.50 [facility] Comment on above: Order Comment: Speci men Type: BLOOD SPECIMENOrdering Facility: [facility] Address: [address] [place] [address] Performed By: #### 5 7021-8 ####[facility]ORATORYCLIA [id number] [address] [place] Neutrophils/100 WBC (Bld) 70.5 % Normal [facility] Comment on above: Order Comment: Speci men Type: BLOOD SPECIMENOrdering Facility: [facility] Address: [address] [place] [address] Performed By: #### 5 7021-8 ####[facility]ORATORYCLIA [id number] [address] [place] Nucleated RBC (Bld) [#/Vol] 10*3/uL Normal <0.01 [facility] Comment on above: Order Comment: Speci men Type: BLOOD SPECIMENOrdering Facility: [facility] Address: [address] [place] [address] Performed By: #### 5 7021-8 ####[facility]ORATORYCLIA [id number] [address] [place] Nucleated RBC/100 WBC (Bld) [Ratio] 0.0 /100 WBC Normal [facility] Comment on above: Order Comment: Speci men Type: BLOOD SPECIMENOrdering Facility: [facility] Address: [address] [address] Performed By: #### 5 7021-8 ####[facility]ORATORYCLIA [id number] [place] [address] [place] Platelet mean volume (Bld) [Entitic vol] 9.0 fL Normal 9.0-12.7 [facility] Comment on above: Order Comment: Speci men Type: BLOOD SPECIMENOrdering Facility: [facility] Address: [address] [place] [address] Performed By: #### 5 7021-8 ####[facility]ORATORYCLIA [id number] [place] [address] [place] Platelets (Bld) [#/Vol] 316 10*3/uL Normal 150-400 [facility] Comment on above: Order Comment: Speci men Type: BLOOD SPECIMENOrdering Facility: [facility] Address: [address] [place] [address] Performed By: #### 5 7021-8 ####[facility]ORATORYCLIA [id number] [place] [address] [place] RBC (Bld) [#/Vol] 3.25 10*6/uL Low 4.20-6.00 [facility] Comment on above: Order Comment: Speci men Type: BLOOD SPECIMENOrdering Facility: [facility] Address: [address] [place] [address] Performed By: #### 5 7021-8 ####[facility]ORATORYCLIA [id number] [address] [place] WBC (Bld) [#/Vol] 7.63 10*3/uL Normal 3.70-11.00 [facility] Comment on above: Order Comment: Speci men Type: BLOOD SPECIMENOrdering Facility: [facility] Address: [address] [place] [address] Performed By: #### 5 7021-8 ####[facility]ORATORYCLIA [id number] [address] [place] Basophils (Bld) [#/Vol] Normal <0.11 [facility] Comment on above: Order Comment: Speci men Type: BLOOD SPECIMENOrdering Facility: [facility] Address: [address] [place] [address] Result Comment: Carolina Owens RN informed lab after results autoverified that she rd on the wrong patient. Lab to credit. Nurse to redraw on correct patient.Corrected result: Previously reported as 0.04 k/uL on 08/16/2021 at 4:44 AM EDT. Performed By: #### 5 7021-8 ####[facility]ORATORYCLIA [id number] [address] STATES OF [facility] Basophils/100 WBC (Bld) Normal [facility] Comment on above: Order Comment: Johni francia Type: BLOOD SPECIMENOrdering Facility: [facility] Address: [address] [place] [address] Result Comment: Tati ected result: Previously reported as 0.4 % on 08/16/2021 at 4:44 AM EDT. Performed By: #### 5 7021-8 ####[facility]ORATORYCLIA [id number] [address] STATES [place] [facility] CBC W Differential panel, method unspecified (Bld) Normal [facility] Comment on above: Order Comment: Speccara feldman Type: BLOOD SPECIMENOrdering Facility: [facility] Address: [address] [place] [address] Result Comment: Carolina Owens RN informed lab after results autoverified that she rd on the wrong patient. Lab to credit. Nurse to redraw on correct patient. Performed By: #### 5 7021-8 ####[facility]ORATORYCLIA [id number] [address] STATES OF [facility] Differential cell count method Nom (Bld) Normal [facility] Comment on above: Order Comment: Speci francia Type: BLOOD SPECIMENOrdering Facility: [facility] Address: [address] [place] [address] Result Comment: Carolina Owens RN informed lab after results autoverified that she rd on the wrong patient. Lab to credit. Nurse to redraw on correct patient.Corrected result: Previously reported as Auto on 08/16/2021 at 4:44 AM EDT. Performed By: #### 5 7021-8 ####[facility]ORATORYCLIA [id number] [address] Eosinophils (Bld) [#/Vol] Normal <0.46 [facility] Comment on above: Order Comment: Speci men Type: BLOOD SPECIMENOrdering Facility: [facility] Address: [address] [place] [address] Result Comment: Carolina Owens RN informed lab after results autoverified that she rd on the wrong patient. Lab to credit. Nurse to redraw on correct patient.Corrected result: Previously reported as 0.07 k/uL on 08/16/2021 at 4:44 AM EDT. Performed By: #### 5 7021-8 ####[facility]ORATORYCLIA [id number] [address] Eosinophils/100 WBC (Bld) Normal [facility] Comment on above: Order Comment: Speci men Type: BLOOD SPECIMENOrdering Facility: [facility] Address: [address] [place] [address] Result Comment: Carolina Owens RN informed lab after results autoverified that she rd on the wrong patient. Lab to credit. Nurse to redraw on correct patient.Corrected result: Previously reported as 0.7 % on 08/16/2021 at 4:44 AM EDT. Performed By: #### 5 7021-8 ####[facility]ORATORYCLIA [id number] [address] Erythrocyte distribution width (RBC) [Ratio] Normal 11.5-15.0 [facility] Comment on above: Order Comment: Speci men Type: BLOOD SPECIMENOrdering Facility: [facility] Address: [address] [place] [address] Result Comment: Carolina Owens RN informed lab after results autoverified that she rd on the wrong patient. Lab to credit. Nurse to redraw on correct patient.Corrected result: Previously reported as 14.2 % on 08/16/2021 at 4:44 AM EDT. Performed By: #### 5 7021-8 ####[facility]ORATORYCLIA [id number] [address] Hematocrit (Bld) [Volume fraction] Normal 39.0-51.0 [facility] Comment on above: Order Comment: Speci men Type: BLOOD SPECIMENOrdering Facility: [facility] Address: [address] [place] [address] Result Comment: Carolina Owens RN informed lab after results autoverified that she rd on the wrong patient. Lab to credit. Nurse to redraw on correct patient.Corrected result: Previously reported as 34.3 % on 08/16/2021 at 4:44 AM EDT. Performed By: #### 5 7021-8 ####[facility]ORATORYCLIA [id number] [address] Hemoglobin (Bld) [Mass/Vol] Normal 13.0-17.0 [facility] Comment on above: Order Comment: Speci men Type: BLOOD SPECIMENOrdering Facility: [facility] Address: [address] [place] [address] Result Comment: Carolina Owens RN informed lab after results autoverified that she rd on the wrong patient. Lab to credit. Nurse to redraw on correct patient.Corrected result: Previously reported as 11.2 g/dL on 08/16/2021 at 4:44 AM EDT. Performed By: #### 5 7021-8 ####[facility]ORATORYCLIA [id number] [address] [place] IMMATURE GRAN % Normal [facility] Comment on above: Order Comment: Speci men Type: BLOOD SPECIMENOrdering Facility: [facility] Address: [address] [place] [address] Result Comment: Carolina Owens RN informed lab after results autoverified that she rd on the wrong patient. Lab to credit. Nurse to redraw on correct patient.Corrected result: Previously reported as 0.8 % on 08/16/2021 at 4:44 AM EDT. Performed By: #### 5 7021-8 ####[facility]ORATORYCLIA [id number] [address] STATES [facility] IMMATURE GRAN ABS Normal <0.10 [facility] Comment on above: Order Comment: Speci men Type: BLOOD SPECIMENOrdering Facility: [facility] Address: [address] [place] [address] Result Comment: Tati ected result: Previously reported as 0.08 k/uL on 08/16/2021 at 4:44 AM EDT. Performed By: #### 5 7021-8 ####[facility]ORATORYCLIA [id number] [address] Lymphocytes (Bld) [#/Vol] Normal 1.00-4.00 [facility] Comment on above: Order Comment: Speci [facility] Type: BLOOD SPECIMENOrdering Facility: [facility] Address: [address] [place] [address] Result Comment: Carolina Owens RN informed lab after results autoverified that she rd on the wrong patient. Lab to credit. Nurse to redraw on correct patient.Corrected result: Previously reported as 1.17 k/uL on 08/16/2021 at 4:44 AM EDT. Performed By: #### 5 7021-8 ####[facility]ORATORYCLIA [id number] [address] Lymphocytes/100 WBC (Bld) Normal [facility] Comment on above: Order Comment: Speci men Type: BLOOD SPECIMENOrdering Facility: [facility] Address: [address] [place] [address] Result Comment: Carolina Owens RN informed lab after results autoverified that she rd on the wrong patient. Lab to credit. Nurse to redraw on correct patient.Corrected result: Previously reported as 12.0 % on 08/16/2021 at 4:44 AM EDT. Performed By: #### 5 7021-8 ####[facility] LABORATORYCLIA [id number] [place] [address] [place] MCHC (RBC) [Mass/Vol] Normal 30.5-36.0 [facility] Comment on above: Order Comment: Speci men Type: BLOOD SPECIMENOrdering Facility: [facility] Address: [address] [place] [address] Result Comment: Carolina Owens RN informed lab after results autoverified that she rd on the wrong patient. Lab to credit. Nurse to redraw on correct patient.Corrected result: Previously reported as 32.7 g/dL on 08/16/2021 at 4:44 AM EDT. Performed By: #### 5 7021-8 ####[facility]ORATORYCLIA [id number] [address] MCV (RBC) [Entitic vol] Normal 80.0-100.0 [facility] Comment on above: Order Comment: Speci men Type: BLOOD SPECIMENOrdering Facility: [facility] Address: [address] [place] [address] Result Comment: Carolina Owens RN informed lab after results autoverified that she rd on the wrong patient. Lab to credit. Nurse to redraw on correct patient.Corrected result: Previously reported as 94.2 fL on 08/16/2021 at 4:44 AM EDT. Performed By: #### 5 7021-8 ####[facility]ORATORYCLIA [id number] [address] [place] Monocytes (Bld) [#/Vol] Normal <0.87 [facility] Comment on above: Order Comment: Speci men Type: BLOOD SPECIMENOrdering Facility: [facility] Address: [address] [place] [address] Result Comment: Carolina Owens RN informed lab after results autoverified that she rd on the wrong patient. Lab to credit. Nurse to redraw on correct patient.Corrected result: Previously reported as 0.99 k/uL on 08/16/2021 at 4:44 AM EDT. Performed By: #### 5 7021-8 ####[facility]ORATORYCLIA [id number] [address] [place] Monocytes/100 WBC (Bld) Normal [facility] Comment on above: Order Comment: Speci francia Type: BLOOD SPECIMENOrdering Facility: [facility] Address: [address] [place] [address] Result Comment: Carolina Owens RN informed lab after results autoverified that she rd on the wrong patient. Lab to credit. Nurse to redraw on correct patient.Corrected result: Previously reported as 10.2 % on 08/16/2021 at 4:44 AM EDT. Performed By: #### 5 7021-8 ####[facility]ORATORYCLIA [id number] [address] [place] Neutrophils (Bld) [#/Vol] Normal 1.45-7.50 [facility] Comment on above: Order Comment: Speccara feldman Type: BLOOD SPECIMENOrdering Facility: [facility] Address: [address] [place] [address] Result Comment: Carolina Owens RN informed lab after results autoverified that she rd on the wrong patient. Lab to credit. Nurse to redraw on correct patient.Corrected result: Previously reported as 7.40 k/uL on 08/16/2021 at 4:44 AM EDT. Performed By: #### 5 7021-8 ####[facility]ORATORYCLIA [id number] [address] STATES OF [facility] Neutrophils/100 WBC (Bld) Normal [facility] Comment on above: Order Comment: Speci francia Type: BLOOD SPECIMENOrdering Facility: [facility] Address: [address] [place] [address] Result Comment: Carolina Owens RN informed lab after results autoverified that she rd on the wrong patient. Lab to credit. Nurse to redraw on correct patient.Corrected result: Previously reported as 75.9 % on 08/16/2021 at 4:44 AM EDT. Performed By: #### 5 7021-8 ####[facility]ORATORYCLIA [id number] [place] [address] [place] Platelet mean volume (Bld) [Entitic vol] Normal 9.0-12.7 [facility] Comment on above: Order Comment: Speci men Type: BLOOD SPECIMENOrdering Facility: [facility] Address: [address] [place] [address] Result Comment: Carolina Owens RN informed lab after results autoverified that she rd on the wrong patient. Lab to credit. Nurse to redraw on correct patient.Corrected result: Previously reported as 9.1 fL on 08/16/2021 at 4:44 AM EDT. Performed By: #### 5 7021-8 ####[facility]ORATORYCLIA [id number] [place] [address] [place] Platelets (Bld) [#/Vol] Normal 150-400 [facility] Comment on above: Order Comment: Speci men Type: BLOOD SPECIMENOrdering Facility: [facility] Address: [address] [place] [address] Result Comment: Carolina Owens RN informed lab after results autoverified that she rd on the wrong patient. Lab to credit. Nurse to redraw on correct patient.Corrected result: Previously reported as 338 k/uL on 08/16/2021 at 4:44 AM EDT. Performed By: #### 5 7021-8 ####[facility]ORATORYCLIA [id number] [place] [address] [place] RBC (Bld) [#/Vol] Normal 4.20-6.00 [facility] Comment on above: Order Comment: Speci men Type: BLOOD SPECIMENOrdering Facility: [facility] Address: [address] [place] [address] Result Comment: Carolina Owens RN informed lab after results autoverified that she rd on the wrong patient. Lab to credit. Nurse to redraw on correct patient.Corrected result: Previously reported as 3.64 m/uL on 08/16/2021 at 4:44 AM EDT. Performed By: #### 5 7021-8 ####[facility] LABORATORYCLIA [id number] [place] [address] [facility] WBC (Bld) [#/Vol] Normal 3.70-11.00 [facility] Comment on above: Order Comment: Speci men Type: BLOOD SPECIMENOrdering Facility: [facility] Address: [address] [place] [address] Result Comment: Carolina Owens RN informed lab after results autoverified that she rd on the wrong patient. Lab to credit. Nurse to redraw on correct patient.Corrected result: Previously reported as 9.75 k/uL on 08/16/2021 at 4:44 AM EDT. Performed By: #### 5 7021-8 ####[facility] LABORATORYCLIA [id number] [address] [place] CONSULT PROGon 08-16-2021 CONSULT PROG [facility] Magnesium SerPl-mCncon 08-16 Magnesium [Mass/Vol] 1.8 mg/dL Normal 1.7-2.3 [facility] Comment on above: Order Comment: Speci men Type: BLOOD SPECIMENOrdering Facility: [facility] Address: [address] [place] [address] Performed By: #### 2 4321-2, 78200-4 ####[facility] LABORATORYCLIA [id number] [place] [address] [place] NURSING PROGon 08-16-2021 NURSING PROG Normal [facility] Basic metabolic 2000 panelon 08-15-2021 Anion gap [Moles/Vol] 13 mmol/L Normal 9-18 [facility] Comment on above: Order Comment: Speci men Type: BLOOD SPECIMENOrdering Facility: [facility] Address: [address] [place] [address] Performed By: #### 2 4321-2 ####[facility] LABORATORYCLIA [id number] [place] [address] [place] Calcium [Mass/Vol] 9.0 mg/dL Normal 8.5-10.2 [facility] Comment on above: Order Comment: Speci men Type: BLOOD SPECIMENOrdering Facility: [facility] Address: [address] [address] Performed By: #### 2 4321-2 ####[facility] LABORATORYCLIA [id number] [place] [address] [place] Chloride [Moles/Vol] 95 mmol/L Low 97-105 [facility] Comment on above: Order Comment: Speci men Type: BLOOD SPECIMENOrdering Facility: [facility] Address: [address] [place] [address] Performed By: #### 2 4321-2 ####[facility] LABORATORYCLIA [id number] [place] [address] [place] CO2 [Moles/Vol] 28 mmol/L Normal 22-30 [facility] Comment on above: Order Comment: Speci men Type: BLOOD SPECIMENOrdering Facility: [facility] Address: [address] [place] [address] Performed By: #### 2 4321-2 ####[facility] LABORATORYCLIA [id number] [address] STATES OF [facility] Creatinine [Mass/Vol] 0.50 mg/dL Low 0.73-1.22 [facility] Comment on above: Order Comment: Speci men Type: BLOOD SPECIMENOrdering Facility: [facility] Address: [address] [place] [address] Performed By: #### 2 4321-2 ####[facility] LABORATORYCLIA [id number] [address] ESTIMATED GLOMERULAR FILTRATION RATE 110 mL/min/1.73m??? Normal >=60 [facility] Comment on above: Order Comment: Speci men Type: BLOOD SPECIMENOrdering Facility: [facility] Address: [address] [place] [address] Result Comment: Luzmaria mated Glomerular Filtration Rate [...] 4321-2 ####[facility]ORATORYCLIA [id number] [place] [address] [place] Glucose [Mass/Vol] 106 mg/dL High 74-99 [facility] Comment on above: Order Comment: Shira feldman Type: BLOOD SPECIMENOrdering Facility: [facility] Address: [address] [place] [address] Result Comment: The [place] Diabetes Association (ADA) provides guidance for cutoff [...] Standards of Medical Care in Diabetes 2016, [place] [employer]. Diabetes Care. 2016.39(Suppl 1). Performed By: #### 2 4321-2 ####[facility]ORATORYCLIA [id number] [place] [address] [place] Potassium [Moles/Vol] 3.3 mmol/L Low 3.7-5.1 [facility] Comment on above: Order Comment: Shira feldman Type: BLOOD SPECIMENOrdering Facility: [facility] Address: [address] [address] Performed By: #### 2 4321-2 ####[facility]ORATORYCLIA [id number] [place] [address] [place] Sodium [Moles/Vol] 136 mmol/L Normal 136-144 [facility] Comment on above: Order Comment: Shira feldman Type: BLOOD SPECIMENOrdering Facility: [facility] Address: [address] [address] Performed By: #### 2 4321-2 ####[facility] LABORATORYCLIA [id number] [address] [place] Urea nitrogen [Mass/Vol] 11 mg/dL Normal 9-24 [facility] Comment on above: Order Comment: Speci men Type: BLOOD SPECIMENOrdering Facility: [facility] Address: [address] [place] [address] Performed By: #### 2 4321-2 ####[facility]ORATORYCLIA [id number] [address] [place] CASE MANAGEMon 08-15-2021 CASE MANAGEM Normal [facility] CBC W Auto Differential pane l (Bld)on 08-15-2021 Basophils (Bld) [#/Vol] 0.03 10*3/uL Normal <0.11 [facility] Comment on above: Order Comment: Speci men Type: BLOOD SPECIMENOrdering Facility: [facility] Address: [address] [place] [address] Performed By: #### 5 7021-8 ####[facility] LABORATORYCLIA [id number] [address] [place] Basophils/100 WBC (Bld) 0.4 % Normal [facility] Comment on above: Order Comment: Speci men Type: BLOOD SPECIMENOrdering Facility: [facility] Address: [address] [place] [address] Performed By: #### 5 7021-8 ####[facility] LABORATORYCLIA [id number] [address] STATES OF [facility] Differential cell count method Nom (Bld) Auto Normal [facility] Comment on above: Order Comment: Speci men Type: BLOOD SPECIMENOrdering Facility: [facility] Address: [address] [place] [address] Performed By: #### 5 7021-8 ####[facility]ORATORYCLIA [id number] [place] [address] [place] Eosinophils (Bld) [#/Vol] 0.20 10*3/uL Normal <0.46 [facility] Comment on above: Order Comment: Speci men Type: BLOOD SPECIMENOrdering Facility: [facility] Address: [address] [place] [address] Performed By: #### 5 7021-8 ####[facility]ORATORYCLIA [id number] [address] STATES OF [facility] Eosinophils/100 WBC (Bld) 2.5 % Normal [facility] Comment on above: Order Comment: Speci men Type: BLOOD SPECIMENOrdering Facility: [facility] Address: [address] [place] [address] Performed By: #### 5 7021-8 ####[facility] LABORATORYCLIA [id number] [address] Erythrocyte distribution width (RBC) [Ratio] 16.7 % High 11.5-15.0 [facility] Comment on above: Order Comment: Speci men Type: BLOOD SPECIMENOrdering Facility: [facility] Address: [address] [place] [address] Performed By: #### 5 7021-8 ####[facility]ORATORYCLIA [id number] [address] Hematocrit (Bld) [Volume fraction] 30.3 % Low 39.0-51.0 [facility] Comment on above: Order Comment: Speci men Type: BLOOD SPECIMENOrdering Facility: [facility] Address: [address] [place] [address] Performed By: #### 5 7021-8 ####[facility] LABORATORYCLIA [id number] [address] [place] Hemoglobin (Bld) [Mass/Vol] 9.4 g/dL Low 13.0-17.0 [facility] Comment on above: Order Comment: Speci men Type: BLOOD SPECIMENOrdering Facility: [facility] Address: [address] [place] [address] Performed By: #### 5 7021-8 ####[facility] LABORATORYCLIA [id number] [address] [place] IMMATURE GRAN % 0.4 % Normal [facility] Comment on above: Order Comment: Speci men Type: BLOOD SPECIMENOrdering Facility: [facility] Address: [address] [place] [address] Performed By: #### 5 7021-8 ####[facility]ORATORYCLIA [id number] [address] IMMATURE GRAN ABS 0.03 k/uL Normal <0.10 [facility] Comment on above: Order Comment: Speci men Type: BLOOD SPECIMENOrdering Facility: [facility] Address: [address] [place] [address] Performed By: #### 5 7021-8 ####[facility] LABORATORYCLIA [id number] [address] Lymphocytes (Bld) [#/Vol] 1.50 10*3/uL Normal 1.00-4.00 [facility] Comment on above: Order Comment: Speci men Type: BLOOD SPECIMENOrdering Facility: [facility] Address: [address] [place] [address] Performed By: #### 5 7021-8 ####[facility]ORATORYCLIA [id number] [address] Lymphocytes/100 WBC (Bld) 18.5 % Normal [facility] Comment on above: Order Comment: Speci men Type: BLOOD SPECIMENOrdering Facility: [facility] Address: [address] [place] [address] Performed By: #### 5 7021-8 ####[facility] LABORATORYCLIA [id number] [address] STATES [facility] MCH (RBC) [Entitic mass] 29.0 pg Normal 26.0-34.0 [facility] Comment on above: Order Comment: Speci men Type: BLOOD SPECIMENOrdering Facility: [facility] Address: [address] [place] [address] Performed By: #### 5 7021-8 ####[facility] LABORATORYCLIA [id number] [address] STATES OF [facility] MCHC (RBC) [Mass/Vol] 31.0 g/dL Normal 30.5-36.0 [facility] Comment on above: Order Comment: Speci men Type: BLOOD SPECIMENOrdering Facility: [facility] Address: [address] [place] [address] Performed By: #### 5 7021-8 ####[facility]ORATORYCLIA [id number] [address] MCV (RBC) [Entitic vol] 93.5 fL Normal 80.0-100.0 [facility] Comment on above: Order Comment: Speci men Type: BLOOD SPECIMENOrdering Facility: [facility] Address: [address] [place] [address] Performed By: #### 5 7021-8 ####[facility]ORATORYCLIA [id number] [address] [place] Monocytes (Bld) [#/Vol] 0.47 10*3/uL Normal <0.87 [facility] Comment on above: Order Comment: Speci men Type: BLOOD SPECIMENOrdering Facility: [facility] Address: [address] [place] [address] Performed By: #### 5 7021-8 ####[facility] LABORATORYCLIA [id number] [address] Monocytes/100 WBC (Bld) 5.8 % Normal [facility] Comment on above: Order Comment: Speci men Type: BLOOD SPECIMENOrdering Facility: [facility] Address: [address] [place] [address] Performed By: #### 5 7021-8 ####[facility] LABORATORYCLIA [id number] [address] [place] Neutrophils (Bld) [#/Vol] 5.87 10*3/uL Normal 1.45-7.50 [facility] Comment on above: Order Comment: Speci men Type: BLOOD SPECIMENOrdering Facility: [facility] Address: [address] [place] [address] Performed By: #### 5 7021-8 ####[facility]ORATORYCLIA [id number] [address] Neutrophils/100 WBC (Bld) 72.4 % Normal [facility] Comment on above: Order Comment: Speci men Type: BLOOD SPECIMENOrdering Facility: [facility] Address: [address] [place] [address] Performed By: #### 5 7021-8 ####[facility]ORATORYCLIA [id number] [address] Nucleated RBC (Bld) [#/Vol] 10*3/uL Normal <0.01 [facility] Comment on above: Order Comment: Speci men Type: BLOOD SPECIMENOrdering Facility: [facility] Address: [address] [place] [address] Performed By: #### 5 7021-8 ####[facility]ORATORYCLIA [id number] [address] Nucleated RBC/100 WBC (Bld) [Ratio] 0.0 /100 WBC Normal [facility] Comment on above: Order Comment: Speci men Type: BLOOD SPECIMENOrdering Facility: [facility] Address: [address] [place] [address] Performed By: #### 5 7021-8 ####[facility]ORATORYCLIA [id number] [address] Platelet mean volume (Bld) [Entitic vol] 9.4 fL Normal 9.0-12.7 [facility] Comment on above: Order Comment: Speci men Type: BLOOD SPECIMENOrdering Facility: [facility] Address: [address] [place] [address] Performed By: #### 5 7021-8 ####[facility] LABORATORYCLIA [id number] [address] [place] Platelets (Bld) [#/Vol] 290 10*3/uL Normal 150-400 [facility] Comment on above: Order Comment: Speci men Type: BLOOD SPECIMENOrdering Facility: [facility] Address: [address] [place] [address] Performed By: #### 5 7021-8 ####[facility]ORATORYCLIA [id number] [address] STATES OF [facility] RBC (Bld) [#/Vol] 3.24 10*6/uL Low 4.20-6.00 [facility] Comment on above: Order Comment: Speci men Type: BLOOD SPECIMENOrdering Facility: [facility] Address: [address] [place] [address] Performed By: #### 5 7021-8 ####[facility]ORATORYCLIA [id number] [address] STATES OF [facility] WBC (Bld) [#/Vol] 8.10 10*3/uL Normal 3.70-11.00 [facility] Comment on above: Order Comment: Speci men Type: BLOOD SPECIMENOrdering Facility: [facility] Address: [address] [place] [address] Performed By: #### 5 7021-8 ####[facility] LABORATORYCLIA [id number] [address] OF [facility] THERAPY NTon 08-15-2021 THERAPY NT Normal [facility] THERAPY NT Normal [facility] THERAPY NT Normal [facility] Basic metabolic 2000 panelon 08-14-2021 Anion gap [Moles/Vol] 10 mmol/L Normal 9-18 [facility] Comment on above: Order Comment: Speci men Type: BLOOD SPECIMENOrdering Facility: [facility] Address: [address] [place] [address] Performed By: #### 2 4321-2 ####[facility] LABORATORYCLIA [id number] [address] [place] Calcium [Mass/Vol] 8.8 mg/dL Normal 8.5-10.2 [facility] Comment on above: Order Comment: Speci men Type: BLOOD SPECIMENOrdering Facility: [facility] Address: [address] [place] [address] Performed By: #### 2 4321-2 ####[facility]ORATORYCLIA [id number] [place] [address] [place] Chloride [Moles/Vol] 92 mmol/L Low 97-105 [facility] Comment on above: Order Comment: Speci men Type: BLOOD SPECIMENOrdering Facility: [facility] Address: [address] [place] [address] Performed By: #### 2 4321-2 ####[facility]ORATORYCLIA [id number] [place] [address] [place] CO2 [Moles/Vol] 29 mmol/L Normal 22-30 [facility] Comment on above: Order Comment: Speci men Type: BLOOD SPECIMENOrdering Facility: [facility] Address: [address] [place] [address] Performed By: #### 2 4321-2 ####[facility]ORATORYCLIA [id number] [place] [address] [place] Creatinine [Mass/Vol] 0.49 mg/dL Low 0.73-1.22 [facility] Comment on above: Order Comment: Speci men Type: BLOOD SPECIMENOrdering Facility: [facility] Address: [address] [place] [address] Performed By: #### 2 4321-2 ####[facility]ORATORYCLIA [id number] [address] OF [facility] ESTIMATED GLOMERULAR FILTRATION RATE 111 mL/min/1.73m??? Normal >=60 [facility] Comment on above: Order Comment: Speci men Type: BLOOD SPECIMENOrdering Facility: [facility] Address: [address] [place] [address] Result Comment: Luzmaria mated Glomerular Filtration Rate [...] 4321-2 ####[facility]ORATORYCLIA [id number] [place] [address] [place] Glucose [Mass/Vol] 104 mg/dL High 74-99 [facility] Comment on above: Order Comment: Shira feldman Type: BLOOD SPECIMENOrdering Facility: [facility] Address: [address] [id number] Result Comment: The [place] Diabetes Association (ADA) provides guidance for cutoff [...] Standards of Medical Care in Diabetes 2016, [place] Diabetes [employer]. Diabetes Care. 2016.39(Suppl 1). Performed By: #### 2 4321-2 ####[facility]ATORYCLIA [id number] [place] [address] [place] Potassium [Moles/Vol] 3.1 mmol/L Low 3.7-5.1 [facility] Comment on above: Order Comment: Shira feldman Type: BLOOD SPECIMENOrdering Facility: [facility] Address: [address] [place] [address] Performed By: #### 2 4321-2 ####[facility]ORATORYCLIA [id number] [place] [address] [place] Sodium [Moles/Vol] 131 mmol/L Low 136-144 [facility] Comment on above: Order Comment: Shira feldman Type: BLOOD SPECIMENOrdering Facility: [facility] Address: [address] [address] Performed By: #### 2 4321-2 ####[facility] LABORATORYCLIA [id number] [address] STATES [facility] Urea nitrogen [Mass/Vol] 13 mg/dL Normal 9-24 [facility] Comment on above: Order Comment: Speci men Type: BLOOD SPECIMENOrdering Facility: [facility] Address: [address] [place] [address] Performed By: #### 2 4321-2 ####[facility] LABORATORYCLIA [id number] [address] [place] CBC W Auto Differential pane l (Bld)on 08-14-2021 Basophils (Bld) [#/Vol] 10*3/uL Normal <0.11 [facility] Comment on above: Order Comment: Speci men Type: BLOOD SPECIMENOrdering Facility: [facility] Address: [address] [place] [address] Performed By: #### 5 7021-8 ####[facility]ORATORYCLIA [id number] [address] [place] Basophils/100 WBC (Bld) 0.2 % Normal [facility] Comment on above: Order Comment: Speci men Type: BLOOD SPECIMENOrdering Facility: [facility] Address: [address] [place] [address] Performed By: #### 5 7021-8 ####[facility]ORATORYCLIA [id number] [address] Differential cell count method Nom (Bld) Auto Normal [facility] Comment on above: Order Comment: Speci men Type: BLOOD SPECIMENOrdering Facility: [facility] Address: [address] [place] [address] Performed By: #### 5 7021-8 ####[facility]ORATORYCLIA [id number] [place] [address] [place] Eosinophils (Bld) [#/Vol] 0.23 10*3/uL Normal <0.46 [facility] Comment on above: Order Comment: Speci men Type: BLOOD SPECIMENOrdering Facility: [facility] Address: [address] [place] [address] Performed By: #### 5 7021-8 ####[facility]ORATORYCLIA [id number] [address] [place] Eosinophils/100 WBC (Bld) 2.7 % Normal [facility] Comment on above: Order Comment: Speci men Type: BLOOD SPECIMENOrdering Facility: [facility] Address: [address] [place] [address] Performed By: #### 5 7021-8 ####[facility]ORATORYCLIA [id number] [address] [place] Erythrocyte distribution width (RBC) [Ratio] 16.6 % High 11.5-15.0 [facility] Comment on above: Order Comment: Speci men Type: BLOOD SPECIMENOrdering Facility: [facility] Address: [address] [place] [address] Performed By: #### 5 7021-8 ####[facility]ORATORYCLIA [id number] [address] [place] Hematocrit (Bld) [Volume fraction] 28.6 % Low 39.0-51.0 [facility] Comment on above: Order Comment: Speci men Type: BLOOD SPECIMENOrdering Facility: [facility] Address: [address] [place] [address] Performed By: #### 5 7021-8 ####[facility]ORATORYCLIA [id number] [address] [place] Hemoglobin (Bld) [Mass/Vol] 9.0 g/dL Low 13.0-17.0 [facility] Comment on above: Order Comment: Speci men Type: BLOOD SPECIMENOrdering Facility: [facility] Address: [address] [place] [address] Performed By: #### 5 7021-8 ####[facility]ORATORYCLIA [id number] [address] IMMATURE GRAN % 0.2 % Normal [facility] Comment on above: Order Comment: Speci men Type: BLOOD SPECIMENOrdering Facility: [facility] Address: [address] [place] [address] Performed By: #### 5 7021-8 ####[facility]ORATORYCLIA [id number] [address] IMMATURE GRAN ABS <0.03 Normal <0.10 [facility] Comment on above: Order Comment: Speci men Type: BLOOD SPECIMENOrdering Facility: [facility] Address: [address] [place] [address] Performed By: #### 5 7021-8 ####[facility]ORATORYCLIA [id number] [address] Lymphocytes (Bld) [#/Vol] 1.33 10*3/uL Normal 1.00-4.00 [facility] Comment on above: Order Comment: Speci men Type: BLOOD SPECIMENOrdering Facility: [facility] Address: [address] [place] [address] Performed By: #### 5 7021-8 ####[facility]ORATORYCLIA [id number] [address] Lymphocytes/100 WBC (Bld) 15.6 % Normal [facility] Comment on above: Order Comment: Speci men Type: BLOOD SPECIMENOrdering Facility: [facility] Address: [address] [place] [address] Performed By: #### 5 7021-8 ####[facility] LABORATORYCLIA [id number] [address] STATES [facility] MCH (RBC) [Entitic mass] 29.0 pg Normal 26.0-34.0 [facility] Comment on above: Order Comment: Speci men Type: BLOOD SPECIMENOrdering Facility: [facility] Address: [address] [place] [address] Performed By: #### 5 7021-8 ####[facility]ORATORYCLIA [id number] [address] [place] MCHC (RBC) [Mass/Vol] 31.5 g/dL Normal 30.5-36.0 [facility] Comment on above: Order Comment: Speci men Type: BLOOD SPECIMENOrdering Facility: [facility] Address: [address] [place] [address] Performed By: #### 5 7021-8 ####[facility] LABORATORYCLIA [id number] [address] MCV (RBC) [Entitic vol] 92.3 fL Normal 80.0-100.0 [facility] Comment on above: Order Comment: Speci men Type: BLOOD SPECIMENOrdering Facility: [facility] Address: [address] [place] [address] Performed By: #### 5 7021-8 ####[facility] LABORATORYCLIA [id number] [address] [place] Monocytes (Bld) [#/Vol] 0.44 10*3/uL Normal <0.87 [facility] Comment on above: Order Comment: Speci men Type: BLOOD SPECIMENOrdering Facility: [facility] Address: [address] [place] [address] Performed By: #### 5 7021-8 ####[facility] LABORATORYCLIA [id number] [address] Monocytes/100 WBC (Bld) 5.2 % Normal [facility] Comment on above: Order Comment: Speci men Type: BLOOD SPECIMENOrdering Facility: [facility] Address: [address] [place] [address] Performed By: #### 5 7021-8 ####[facility] LABORATORYCLIA [id number] [address] [place] Neutrophils (Bld) [#/Vol] 6.46 10*3/uL Normal 1.45-7.50 [facility] Comment on above: Order Comment: Speci men Type: BLOOD SPECIMENOrdering Facility: [facility] Address: [address] [address] Performed By: #### 5 7021-8 ####[facility]ORATORYCLIA [id number] [address] Neutrophils/100 WBC (Bld) 76.1 % Normal [facility] Comment on above: Order Comment: Speci men Type: BLOOD SPECIMENOrdering Facility: [facility] Address: [address] [place] [address] Performed By: #### 5 7021-8 ####[facility]ORATORYCLIA [id number] [address] Nucleated RBC (Bld) [#/Vol] 10*3/uL Normal <0.01 [facility] Comment on above: Order Comment: Speci men Type: BLOOD SPECIMENOrdering Facility: [facility] Address: [address] [place] [address] Performed By: #### 5 7021-8 ####[facility]ORATORYCLIA [id number] [address] Nucleated RBC/100 WBC (Bld) [Ratio] 0.0 /100 WBC Normal [facility] Comment on above: Order Comment: Speci men Type: BLOOD SPECIMENOrdering Facility: [facility] Address: [address] [place] [address] Performed By: #### 5 7021-8 ####[facility] LABORATORYCLIA [id number] [address] [place] Platelet mean volume (Bld) [Entitic vol] 9.5 fL Normal 9.0-12.7 [facility] Comment on above: Order Comment: Speci men Type: BLOOD SPECIMENOrdering Facility: [facility] Address: [address] [place] [address] Performed By: #### 5 7021-8 ####[facility]ORATORYCLIA [id number] [address] [place] Platelets (Bld) [#/Vol] 247 10*3/uL Normal 150-400 [facility] Comment on above: Order Comment: Speci men Type: BLOOD SPECIMENOrdering Facility: [facility] Address: [address] [place] [address] Performed By: #### 5 7021-8 ####[facility]ORATORYCLIA [id number] [place] [address] [place] [facility] RBC (Bld) [#/Vol] 3.10 10*6/uL Low 4.20-6.00 [facility] Comment on above: Order Comment: Speci men Type: BLOOD SPECIMENOrdering Facility: [facility] Address: [address] [place] [address] Performed By: #### 5 7021-8 ####[facility]ORATORYCLIA [id number] [address] [place] WBC (Bld) [#/Vol] 8.50 10*3/uL Normal 3.70-11.00 [facility] Comment on above: Order Comment: Speci men Type: BLOOD SPECIMENOrdering Facility: [facility] Address: [address] [place] [address] Performed By: #### 5 7021-8 ####[facility] LABORATORYCLIA [id number] [address] [place] CONSULTon 08-14-2021 CONSULT Normal [facility] NURSING PROGon 08-14-2021 NURSING PROG Normal [facility] CBC W Auto Differential pane l (Bld)on 08-13-2021 Basophils (Bld) [#/Vol] 10*3/uL Normal <0.11 [facility] Comment on above: Order Comment: Speci men Type: BLOOD SPECIMENOrdering Facility: [facility] Address: [address] [place] [address] Performed By: #### 5 7021-8 ####[facility]ORATORYCLIA [id number] [address] [place] Basophils/100 WBC (Bld) 0.2 % Normal [facility] Comment on above: Order Comment: Speci men Type: BLOOD SPECIMENOrdering Facility: [facility] Address: [address] [place] [address] Performed By: #### 5 7021-8 ####[facility]ORATORYCLIA [id number] [address] Differential cell count method Nom (Bld) Auto Normal [facility] Comment on above: Order Comment: Speci men Type: BLOOD SPECIMENOrdering Facility: [facility] Address: [address] [place] [address] Performed By: #### 5 7021-8 ####[facility]ORATORYCLIA [id number] [address] Eosinophils (Bld) [#/Vol] 0.31 10*3/uL Normal <0.46 [facility] Comment on above: Order Comment: Speci men Type: BLOOD SPECIMENOrdering Facility: [facility] Address: [address] [place] [address] Performed By: #### 5 7021-8 ####[facility]ORATORYCLIA [id number] [address] Eosinophils/100 WBC (Bld) 3.7 % Normal [facility] Comment on above: Order Comment: Speci men Type: BLOOD SPECIMENOrdering Facility: [facility] Address: [address] [place] [address] Performed By: #### 5 7021-8 ####[facility]ORATORYCLIA [id number] [address] Erythrocyte distribution width (RBC) [Ratio] 16.6 % High 11.5-15.0 [facility] Comment on above: Order Comment: Speci men Type: BLOOD SPECIMENOrdering Facility: [facility] Address: [address] [place] [address] Performed By: #### 5 7021-8 ####[facility]ORATORYCLIA [id number] [address] [place] Hematocrit (Bld) [Volume fraction] 27.5 % Low 39.0-51.0 [facility] Comment on above: Order Comment: Speci men Type: BLOOD SPECIMENOrdering Facility: [facility] Address: [address] [place] [address] Performed By: #### 5 7021-8 ####[facility]ORATORYCLIA [id number] [address] Hemoglobin (Bld) [Mass/Vol] 8.4 g/dL Low 13.0-17.0 [facility] Comment on above: Order Comment: Speci men Type: BLOOD SPECIMENOrdering Facility: [facility] Address: [address] [place] [address] Performed By: #### 5 7021-8 ####[facility]ORATORYCLIA [id number] [address] IMMATURE GRAN % 0.5 % Normal [facility] Comment on above: Order Comment: Speci men Type: BLOOD SPECIMENOrdering Facility: [facility] Address: [address] [place] [address] Performed By: #### 5 7021-8 ####[facility]ORATORYCLIA [id number] [address] IMMATURE GRAN ABS 0.04 k/uL Normal <0.10 [facility] Comment on above: Order Comment: Speci men Type: BLOOD SPECIMENOrdering Facility: [facility] Address: [address] [place] [address] Performed By: #### 5 7021-8 ####[facility]ORATORYCLIA [id number] [address] Lymphocytes (Bld) [#/Vol] 1.55 10*3/uL Normal 1.00-4.00 [facility] Comment on above: Order Comment: Speci men Type: BLOOD SPECIMENOrdering Facility: [facility] Address: [address] [place] [address] Performed By: #### 5 7021-8 ####[facility]ORATORYCLIA [id number] [address] Lymphocytes/100 WBC (Bld) 18.7 % Normal [facility] Comment on above: Order Comment: Speci men Type: BLOOD SPECIMENOrdering Facility: [facility] Address: [address] [place] [address] Performed By: #### 5 7021-8 ####[facility]ORATORYCLIA [id number] [address] MCH (RBC) [Entitic mass] 28.9 pg Normal 26.0-34.0 [facility] Comment on above: Order Comment: Speci men Type: BLOOD SPECIMENOrdering Facility: [facility] Address: [address] [place] [address] Performed By: #### 5 7021-8 ####[facility]ORATORYCLIA [id number] [address] MCHC (RBC) [Mass/Vol] 30.5 g/dL Normal 30.5-36.0 [facility] Comment on above: Order Comment: Speci men Type: BLOOD SPECIMENOrdering Facility: [facility] Address: [address] [place] [address] Performed By: #### 5 7021-8 ####[facility]ORATORYCLIA [id number] [address] MCV (RBC) [Entitic vol] 94.5 fL Normal 80.0-100.0 [facility] Comment on above: Order Comment: Speci men Type: BLOOD SPECIMENOrdering Facility: [facility] Address: [address] [place] [address] Performed By: #### 5 7021-8 ####[facility]ORATORYCLIA [id number] [address] Monocytes (Bld) [#/Vol] 0.47 10*3/uL Normal <0.87 [facility] Comment on above: Order Comment: Speci men Type: BLOOD SPECIMENOrdering Facility: [facility] Address: [address] [place] [address] Performed By: #### 5 7021-8 ####[facility]ORATORYCLIA [id number] [address] Monocytes/100 WBC (Bld) 5.7 % Normal [facility] Comment on above: Order Comment: Speci men Type: BLOOD SPECIMENOrdering Facility: [facility] Address: [address] [place] [address] Performed By: #### 5 7021-8 ####[facility]ORATORYCLIA [id number] [address] [place] Neutrophils (Bld) [#/Vol] 5.92 10*3/uL Normal 1.45-7.50 [facility] Comment on above: Order Comment: Speci men Type: BLOOD SPECIMENOrdering Facility: [facility] Address: [address] [place] [address] Performed By: #### 5 7021-8 ####[facility]ATORYCLIA [id number] [address] Neutrophils/100 WBC (Bld) 71.2 % Normal [facility] Comment on above: Order Comment: Speci men Type: BLOOD SPECIMENOrdering Facility: [facility] Address: [address] [place] [address] Performed By: #### 5 7021-8 ####[facility]ORATORYCLIA [id number] [address] [place] Nucleated RBC (Bld) [#/Vol] 10*3/uL Normal <0.01 [facility] Comment on above: Order Comment: Speci men Type: BLOOD SPECIMENOrdering Facility: [facility] Address: [address] [place] [address] Performed By: #### 5 7021-8 ####[facility]ATORYCLIA [id number] [address] [place] Nucleated RBC/100 WBC (Bld) [Ratio] 0.0 /100 WBC Normal [facility] Comment on above: Order Comment: Speci men Type: BLOOD SPECIMENOrdering Facility: [facility] Address: [address] [place] [address] Performed By: #### 5 7021-8 ####[facility]ORATORYCLIA [id number] [address] [place] Platelet mean volume (Bld) [Entitic vol] 9.9 fL Normal 9.0-12.7 [facility] Comment on above: Order Comment: Speci men Type: BLOOD SPECIMENOrdering Facility: [facility] Address: [address] [place] [address] Performed By: #### 5 7021-8 ####[facility]ORATORYCLIA [id number] [address] [place] Platelets (Bld) [#/Vol] 203 10*3/uL Normal 150-400 [facility] Comment on above: Order Comment: Speci men Type: BLOOD SPECIMENOrdering Facility: [facility] Address: [address] [place] [address] Performed By: #### 5 7021-8 ####[facility]ORATORYCLIA [id number] [address] [place] RBC (Bld) [#/Vol] 2.91 10*6/uL Low 4.20-6.00 [facility] Comment on above: Order Comment: Speci men Type: BLOOD SPECIMENOrdering Facility: [facility] Address: [address] [place], [place] [address] Performed By: #### 5 7021-8 ####[facility]ORATORYCLIA [id number] [address] [place] WBC (Bld) [#/Vol] 8.31 10*3/uL Normal 3.70-11.00 [facility] Comment on above: Order Comment: Speci men Type: BLOOD SPECIMENOrdering Facility: [facility] Address: [address] [place] [address] Performed By: #### 5 7021-8 ####[facility] LABORATORYCLIA [id number] [address] OF [facility] aPTT PPPon 08-13-2021 aPTT Coag (PPP) [Time] 69.7 s High 23.0-32.[address] [facility] Comment on above: Order Comment: Speci men Type: BLOOD SPECIMENOrdering Facility: [facility] Address: [address] [place], [place] [address] Performed By: #### 1 4979-9 ####[facility]ORATORYCLIA [id number] [address] STATES OF [facility] aPTT Coag (PPP) [Time] 70.6 s High 23.0-32.[address] [facility] Comment on above: Order Comment: Speci men Type: BLOOD SPECIMENOrdering Facility: [facility] Address: [address] [place], [place] [address] Performed By: #### 1 4979-9 ####[facility]ORATORYCLIA [id number] [address] [place] ALLIED HEALTHon 08-12-2021 ALLIED HEALTH Normal [facility] ALLIED HEALTH Normal [facility] Basic metabolic 2000 panelon 08-12-2021 Anion gap [Moles/Vol] 7 mmol/L Low 9-18 [facility] Comment on above: Order Comment: Speci men Type: BLOOD SPECIMENOrdering Facility: [facility] Address: [address] [place], [place] [address] Performed By: #### 2 4321-2, , 2776-05 ####[facility]ORATORYCLIA [id number] [address] STATES OF [facility] Calcium [Mass/Vol] 8.8 mg/dL Normal 8.5-10.2 [facility] Comment on above: Order Comment: Speci men Type: BLOOD SPECIMENOrdering Facility: [facility] Address: [address] [place], [place] [address] Performed By: #### 2 4321-2, , 2776-05 ####[facility]ORATORYCLIA [id number] [place] [address] [place] Chloride [Moles/Vol] 96 mmol/L Low 97-105 [facility] Comment on above: Order Comment: Speci men Type: BLOOD SPECIMENOrdering Facility: [facility] Address: [address] [place] [address] Performed By: #### 2 4321-2, , 2776-05 ####[facility]ORATORYCLIA [id number] [address] STATES OF [facility] CO2 [Moles/Vol] 32 mmol/L High 22-30 [facility] Comment on above: Order Comment: Speci men Type: BLOOD SPECIMENOrdering Facility: [facility] Address: [address] [place] [address] Performed By: #### 2 4321-2, , 2776-05 ####[facility]ORATORYCLIA [id number] [address] Creatinine [Mass/Vol] 0.52 mg/dL Low 0.73-1.22 [facility] Comment on above: Order Comment: Speci men Type: BLOOD SPECIMENOrdering Facility: [facility] Address: [address] [place] [address] Performed By: #### 2 4321-2, , 2776-05 ####[facility]ORATORYCLIA [id number] [address] ESTIMATED GLOMERULAR FILTRATION RATE 109 mL/min/1.73m??? Normal >=60 [facility] Comment on above: Order Comment: Speci men Type: BLOOD SPECIMENOrdering Facility: [facility] Address: [address] [place] [address] Result Comment: Luzmaria mated Glomerular Filtration Rate [...] 2776-05 ####[facility]ORATORYCLIA [id number] [place] [address] [place] Glucose [Mass/Vol] 119 mg/dL High 74-99 [facility] Comment on above: Order Comment: Shira feldman Type: BLOOD SPECIMENOrdering Facility: [facility] Address: [address] [place], [place] [address] Result Comment: The [place] Diabetes Association (ADA) provides guidance for cutoff [...] Standards of Medical Care in Diabetes 2016, [place] [employer]. Diabetes Care. 2016.39(Suppl 1). Performed By: #### 2 4321-2, , 2776-05 ####[facility]ORATORYCLIA [id number] [place] [address] [place] Potassium [Moles/Vol] 3.7 mmol/L Normal 3.7-5.1 [facility] Comment on above: Order Comment: Shira feldman Type: BLOOD SPECIMENOrdering Facility: [facility] Address: [address] [place] [address] Performed By: #### 2 4321-2, , 2776-05 ####[facility]ORATORYCLIA [id number] [place] [address] [place] Sodium [Moles/Vol] 135 mmol/L Low 136-144 [facility] Comment on above: Order Comment: Shira feldman Type: BLOOD SPECIMENOrdering Facility: [facility] Address: [address] [place] [address] Performed By: #### 2 4321-2, 25171-8, 2771 ####[facility]ORATORYCLIA [id number] [address] STATES [facility] Urea nitrogen [Mass/Vol] 20 mg/dL Normal 9-24 [facility] Comment on above: Order Comment: Speci men Type: BLOOD SPECIMENOrdering Facility: [facility] Address: [address] [place] [address] Performed By: #### 2 4321-2, , 27711-04 ####[facility]ORATORYCLIA [id number] [address] CASE MANAGEMon 08-12-2021 CASE MANAGEM Normal [facility] CBC W Auto Differential pane l (Bld)on 08-12-2021 Basophils (Bld) [#/Vol] 0.04 10*3/uL Normal <0.11 [facility] Comment on above: Order Comment: Speci men Type: BLOOD SPECIMENOrdering Facility: [facility] Address: [address] [place] [address] Performed By: #### 5 7021-8 ####[facility]ORATORYCLIA [id number] [address] [place] Basophils/100 WBC (Bld) 0.5 % Normal [facility] Comment on above: Order Comment: Speci men Type: BLOOD SPECIMENOrdering Facility: [facility] Address: [address] [place] [address] Performed By: #### 5 7021-8 ####[facility]ORATORYCLIA [id number] [address] STATES [facility] Differential cell count method Nom (Bld) Auto Normal [facility] Comment on above: Order Comment: Speci men Type: BLOOD SPECIMENOrdering Facility: [facility] Address: [address] [place] [address] Performed By: #### 5 7021-8 ####[facility]ATORYCLIA [id number] [address] [place] Eosinophils (Bld) [#/Vol] 0.19 10*3/uL Normal <0.46 [facility] Comment on above: Order Comment: Speci men Type: BLOOD SPECIMENOrdering Facility: [facility] Address: [address] [place] [address] Performed By: #### 5 7021-8 ####[facility]ORATORYCLIA [id number] [address] [place] Eosinophils/100 WBC (Bld) 2.3 % Normal [facility] Comment on above: Order Comment: Speci men Type: BLOOD SPECIMENOrdering Facility: [facility] Address: [address] [place] [address] Performed By: #### 5 7021-8 ####[facility]ORATORYCLIA [id number] [address] STATES [facility] Erythrocyte distribution width (RBC) [Ratio] 17.1 % High 11.5-15.0 [facility] Comment on above: Order Comment: Speci men Type: BLOOD SPECIMENOrdering Facility: [facility] Address: [address] [place] [address] Performed By: #### 5 7021-8 ####[facility]ORATORYCLIA [id number] [address] [place] Hematocrit (Bld) [Volume fraction] 25.3 % Low 39.0-51.0 [facility] Comment on above: Order Comment: Speci men Type: BLOOD SPECIMENOrdering Facility: [facility] Address: [address] [place] [address] Performed By: #### 5 7021-8 ####[facility]ORATORYCLIA [id number] [address] [place] Hemoglobin (Bld) [Mass/Vol] 7.9 g/dL Low 13.0-17.0 [facility] Comment on above: Order Comment: Speci men Type: BLOOD SPECIMENOrdering Facility: [facility] Address: [address] [place] [address] Performed By: #### 5 7021-8 ####[facility]ORYCLIA [id number] [address] IMMATURE GRAN % 0.5 % Normal [facility] Comment on above: Order Comment: Speci men Type: BLOOD SPECIMENOrdering Facility: [facility] Address: [address] [place] [address] Performed By: #### 5 7021-8 ####[facility]ORATORYCLIA [id number] [address] IMMATURE GRAN ABS 0.04 k/uL Normal <0.10 [facility] Comment on above: Order Comment: Speci men Type: BLOOD SPECIMENOrdering Facility: [facility] Address: [address] [place] [address] Performed By: #### 5 7021-8 ####[facility]ORATORYCLIA [id number] [address] Lymphocytes (Bld) [#/Vol] 1.69 10*3/uL Normal 1.00-4.00 [facility] Comment on above: Order Comment: Speci men Type: BLOOD SPECIMENOrdering Facility: [facility] Address: [address] [place] [address] Performed By: #### 5 7021-8 ####[facility]ATORYCLIA [id number] [address] Lymphocytes/100 WBC (Bld) 20.1 % Normal [facility] Comment on above: Order Comment: Speci men Type: BLOOD SPECIMENOrdering Facility: [facility] Address: [address] [place] [address] Performed By: #### 5 7021-8 ####[facility]ORYCLIA [id number] [address] [place] MCH (RBC) [Entitic mass] 28.5 pg Normal 26.0-34.0 [facility] Comment on above: Order Comment: Speci men Type: BLOOD SPECIMENOrdering Facility: [facility] Address: [address] [place] [address] Performed By: #### 5 7021-8 ####[facility]ATORYCLIA [id number] [address] [place] MCHC (RBC) [Mass/Vol] 31.2 g/dL Normal 30.5-36.0 [facility] Comment on above: Order Comment: Speci men Type: BLOOD SPECIMENOrdering Facility: [facility] Address: [address] [place] [address] Performed By: #### 5 7021-8 ####[facility]ATORYCLIA [id number] [address] [place] MCV (RBC) [Entitic vol] 91.3 fL Normal 80.0-100.0 [facility] Comment on above: Order Comment: Speci men Type: BLOOD SPECIMENOrdering Facility: [facility] Address: [address] [place] [address] Performed By: #### 5 7021-8 ####[facility] LABORATORYCLIA [id number] [address] [place] Monocytes (Bld) [#/Vol] 0.53 10*3/uL Normal <0.87 [facility] Comment on above: Order Comment: Speci men Type: BLOOD SPECIMENOrdering Facility: [facility] Address: [address] [place] [address] Performed By: #### 5 7021-8 ####[facility] LABORATORYCLIA [id number] [address] Monocytes/100 WBC (Bld) 6.3 % Normal [facility] Comment on above: Order Comment: Speci men Type: BLOOD SPECIMENOrdering Facility: [facility] Address: [address] [place] [address] Performed By: #### 5 7021-8 ####[facility] LABORATORYCLIA [id number] [address] [place] Neutrophils (Bld) [#/Vol] 5.90 10*3/uL Normal 1.45-7.50 [facility] Comment on above: Order Comment: Speci men Type: BLOOD SPECIMENOrdering Facility: [facility] Address: [address] [place] [address] Performed By: #### 5 7021-8 ####[facility] LABORATORYCLIA [id number] [address] [place] Neutrophils/100 WBC (Bld) 70.3 % Normal [facility] Comment on above: Order Comment: Speci men Type: BLOOD SPECIMENOrdering Facility: [facility] Address: [address] [place] [address] Performed By: #### 5 7021-8 ####[facility]ORATORYCLIA [id number] [address] [place] Nucleated RBC (Bld) [#/Vol] 10*3/uL Normal <0.01 [facility] Comment on above: Order Comment: Speci men Type: BLOOD SPECIMENOrdering Facility: [facility] Address: [address] [place] [address] Performed By: #### 5 7021-8 ####[facility] LABORATORYCLIA [id number] [address] [place] Nucleated RBC/100 WBC (Bld) [Ratio] 0.0 /100 WBC Normal [facility] Comment on above: Order Comment: Speci men Type: BLOOD SPECIMENOrdering Facility: [facility] Address: [address] [place] [address] Performed By: #### 5 7021-8 ####[facility]ORATORYCLIA [id number] [address] [place] Platelet mean volume (Bld) [Entitic vol] 9.8 fL Normal 9.0-12.7 [facility] Comment on above: Order Comment: Speci men Type: BLOOD SPECIMENOrdering Facility: [facility] Address: [address] [place] [address] Performed By: #### 5 7021-8 ####[facility]ORATORYCLIA [id number] [address] Platelets (Bld) [#/Vol] 164 10*3/uL Normal 150-400 [facility] Comment on above: Order Comment: Speci men Type: BLOOD SPECIMENOrdering Facility: [facility] Address: [address] [place] [address] Performed By: #### 5 7021-8 ####[facility]ORATORYCLIA [id number] [address] [place] RBC (Bld) [#/Vol] 2.77 10*6/uL Low 4.20-6.00 [facility] Comment on above: Order Comment: Speci men Type: BLOOD SPECIMENOrdering Facility: [facility] Address: [address] [place] [address] Performed By: #### 5 7021-8 ####[facility]ORATORYCLIA [id number] [address] WBC (Bld) [#/Vol] 8.39 10*3/uL Normal 3.70-11.00 [facility] Comment on above: Order Comment: Speci men Type: BLOOD SPECIMENOrdering Facility: [facility] Address: [address] [place] [address] Performed By: #### 5 7021-8 ####[facility]ORATORYCLIA [id number] [address] BRAIN WO IVCONon 08-13-19 CT BRAIN WO IVCON Normal [facility] CT BRAIN WO IVCON Normal [facility] Magnesium SerPl-mCncon 08-12 Magnesium [Mass/Vol] 2.0 mg/dL Normal 1.7-2.3 [facility] Comment on above: Order Comment: Speci men Type: BLOOD SPECIMENOrdering Facility: [facility] Address: [address] [place] [address] Performed By: #### 2 4321-2, 64449-4, 2777-1 ####[facility]ORATORYCLIA [id number] [address] Phosphate SerPl-mCncon 08-12 Phosphate [Mass/Vol] 2.9 mg/dL Normal 2.7-4.8 [facility] Comment on above: Order Comment: Speci men Type: BLOOD SPECIMENOrdering Facility: [facility] Address: [address] [place] [address] Performed By: #### 2 4321-2, 57078-0, 2777-1 ####[facility]ORATORYCLIA [id number] [address] THERAPY NTon 08-12-2021 THERAPY NT Normal [facility] THERAPY NT Normal [facility] aPTT PPPon 08-12-2021 aPTT Coag (PPP) [Time] 94.2 s High 23.0-32.[address] [facility] Comment on above: Order Comment: Speci men Type: BLOOD SPECIMENOrdering Facility: [facility] Address: [address] [place] [address] Performed By: #### 1 4979-9 ####[facility]ORATORYCLIA [id number] [address] aPTT Coag (PPP) [Time] 84.4 s High 23.0-32.[address] [facility] Comment on above: Order Comment: Speci men Type: BLOOD SPECIMENOrdering Facility: [facility] Address: [address] [place] [address] Performed By: #### 1 4979-9 ####[facility]ORATORYCLIA [id number] [address] aPTT Coag (PPP) [Time] 71.3 s High 23.0-32.[address] [facility] Comment on above: Order Comment: Speci men Type: BLOOD SPECIMENOrdering Facility: [facility] Address: [address] [place] [address] Performed By: #### 1 4979-9 ####[facility] LABORATORYCLIA [id number] [address] [place] ALLIED HEALTHon 08-11-2021 ALLIED HEALTH Normal [facility] CBC W Auto Differential pane l (Bld)on 08-11-2021 Basophils (Bld) [#/Vol] 10*3/uL Normal <0.11 [facility] Comment on above: Order Comment: Speci men Type: BLOOD SPECIMENOrdering Facility: [facility] Address: [address] [place] [address] Performed By: #### 5 7021-8 ####[facility] LABORATORYCLIA [id number] [address] Basophils/100 WBC (Bld) 0.2 % Normal [facility] Comment on above: Order Comment: Speci men Type: BLOOD SPECIMENOrdering Facility: [facility] Address: [address] [place] [address] Performed By: #### 5 7021-8 ####[facility] LABORATORYCLIA [id number] [address] Differential cell count method Nom (Bld) Auto Normal [facility] Comment on above: Order Comment: Speci men Type: BLOOD SPECIMENOrdering Facility: [facility] Address: [address] [place] [address] Performed By: #### 5 7021-8 ####[facility] LABORATORYCLIA [id number] [address] [place] Eosinophils (Bld) [#/Vol] 0.16 10*3/uL Normal <0.46 [facility] Comment on above: Order Comment: Speci men Type: BLOOD SPECIMENOrdering Facility: [facility] Address: [address] [place] [address] Performed By: #### 5 7021-8 ####[facility]ORATORYCLIA [id number] [address] [place] Eosinophils/100 WBC (Bld) 1.8 % Normal [facility] Comment on above: Order Comment: Speci men Type: BLOOD SPECIMENOrdering Facility: [facility] Address: [address] [place] [address] Performed By: #### 5 7021-8 ####[facility] LABORATORYCLIA [id number] [address] Erythrocyte distribution width (RBC) [Ratio] 17.3 % High 11.5-15.0 [facility] Comment on above: Order Comment: Speci men Type: BLOOD SPECIMENOrdering Facility: [facility] Address: [address] [place] [address] Performed By: #### 5 7021-8 ####[facility] LABORATORYCLIA [id number] [address] Hematocrit (Bld) [Volume fraction] 26.6 % Low 39.0-51.0 [facility] Comment on above: Order Comment: Speci men Type: BLOOD SPECIMENOrdering Facility: [facility] Address: [address] [place] [address] Performed By: #### 5 7021-8 ####[facility]ORATORYCLIA [id number] [address] Hemoglobin (Bld) [Mass/Vol] 8.2 g/dL Low 13.0-17.0 [facility] Comment on above: Order Comment: Speci men Type: BLOOD SPECIMENOrdering Facility: [facility] Address: [address] [place] [address] Performed By: #### 5 7021-8 ####[facility]ORATORYCLIA [id number] [address] IMMATURE GRAN % 0.6 % Normal [facility] Comment on above: Order Comment: Speci men Type: BLOOD SPECIMENOrdering Facility: [facility] Address: [address] [place] [address] Performed By: #### 5 7021-8 ####[facility] LABORATORYCLIA [id number] [address] IMMATURE GRAN ABS 0.05 k/uL Normal <0.10 [facility] Comment on above: Order Comment: Speci men Type: BLOOD SPECIMENOrdering Facility: [facility] Address: [address] [place] [address] Performed By: #### 5 7021-8 ####[facility] LABORATORYCLIA [id number] [address] [place] Lymphocytes (Bld) [#/Vol] 1.40 10*3/uL Normal 1.00-4.00 [facility] Comment on above: Order Comment: Speci men Type: BLOOD SPECIMENOrdering Facility: [facility] Address: [address] [place] [address] Performed By: #### 5 7021-8 ####[facility]ORATORYCLIA [id number] [address] Lymphocytes/100 WBC (Bld) 15.8 % Normal [facility] Comment on above: Order Comment: Speci men Type: BLOOD SPECIMENOrdering Facility: [facility] Address: [address] [place] [address] Performed By: #### 5 7021-8 ####[facility]ORATORYCLIA [id number] [address] MCH (RBC) [Entitic mass] 28.4 pg Normal 26.0-34.0 [facility] Comment on above: Order Comment: Speci men Type: BLOOD SPECIMENOrdering Facility: [facility] Address: [address] [place] [address] Performed By: #### 5 7021-8 ####[facility]ORATORYCLIA [id number] [address] MCHC (RBC) [Mass/Vol] 30.8 g/dL Normal 30.5-36.0 [facility] Comment on above: Order Comment: Speci men Type: BLOOD SPECIMENOrdering Facility: [facility] Address: [address] [address] Performed By: #### 5 7021-8 ####[facility]ORATORYCLIA [id number] [address] [place] MCV (RBC) [Entitic vol] 92.0 fL Normal 80.0-100.0 [facility] Comment on above: Order Comment: Speci men Type: BLOOD SPECIMENOrdering Facility: [facility] Address: [address] [place] [address] Performed By: #### 5 7021-8 ####[facility]ORATORYCLIA [id number] [address] [place] Monocytes (Bld) [#/Vol] 0.61 10*3/uL Normal <0.87 [facility] Comment on above: Order Comment: Speci men Type: BLOOD SPECIMENOrdering Facility: [facility] Address: [address] [place] [address] Performed By: #### 5 7021-8 ####[facility] LABORATORYCLIA [id number] [address] STATES [facility] Monocytes/100 WBC (Bld) 6.9 % Normal [facility] Comment on above: Order Comment: Speci men Type: BLOOD SPECIMENOrdering Facility: [facility] Address: [address] [place] [address] Performed By: #### 5 7021-8 ####[facility]ORATORYCLIA [id number] [address] [place] Neutrophils (Bld) [#/Vol] 6.62 10*3/uL Normal 1.45-7.50 [facility] Comment on above: Order Comment: Speci men Type: BLOOD SPECIMENOrdering Facility: [facility] Address: [address] [place] [address] Performed By: #### 5 7021-8 ####[facility] LABORATORYCLIA [id number] [address] [place] Neutrophils/100 WBC (Bld) 74.7 % Normal [facility] Comment on above: Order Comment: Speci men Type: BLOOD SPECIMENOrdering Facility: [facility] Address: [address] [address] Performed By: #### 5 7021-8 ####[facility]ORATORYCLIA [id number] [address] [place] Nucleated RBC (Bld) [#/Vol] 10*3/uL Normal <0.01 [facility] Comment on above: Order Comment: Speci men Type: BLOOD SPECIMENOrdering Facility: [facility] Address: [address] [place] [address] Performed By: #### 5 7021-8 ####[facility]ORATORYCLIA [id number] [address] [place] Nucleated RBC/100 WBC (Bld) [Ratio] 0.0 /100 WBC Normal [facility] Comment on above: Order Comment: Speci men Type: BLOOD SPECIMENOrdering Facility: [facility] Address: [address] [place] [address] Performed By: #### 5 7021-8 ####[facility]ORATORYCLIA [id number] [address] [place] Platelet mean volume (Bld) [Entitic vol] 9.8 fL Normal 9.0-12.7 [facility] Comment on above: Order Comment: Speci men Type: BLOOD SPECIMENOrdering Facility: [facility] Address: [address] [place], [place] [address] Performed By: #### 5 7021-8 ####[facility]ORATORYCLIA [id number] [address] [place] Platelets (Bld) [#/Vol] 157 10*3/uL Normal 150-400 [facility] Comment on above: Order Comment: Speci men Type: BLOOD SPECIMENOrdering Facility: [facility] Address: [address] [place] [address] Performed By: #### 5 7021-8 ####[facility] LABORATORYCLIA [id number] [address] OF [facility] RBC (Bld) [#/Vol] 2.89 10*6/uL Low 4.20-6.00 [facility] Comment on above: Order Comment: Speci men Type: BLOOD SPECIMENOrdering Facility: [facility] Address: [address] [place] [address] Performed By: #### 5 7021-8 ####[facility] LABORATORYCLIA [id number] [address] OF [facility] WBC (Bld) [#/Vol] 8.86 10*3/uL Normal 3.70-11.00 [facility] Comment on above: Order Comment: Speci men Type: BLOOD SPECIMENOrdering Facility: [facility] Address: [address] [place] [address] Performed By: #### 5 7021-8 ####[facility]ORATORYCLIA [id number] [address] CBC panel Auto (Bld)on 08-11 Erythrocyte distribution width (RBC) [Ratio] 17.2 % High 11.5-15.0 [facility] Comment on above: Order Comment: Speci men Type: BLOOD SPECIMENOrdering Facility: [facility] Address: [address] [place] [address] Performed By: #### 5 8410-2 ####[facility]ORATORYCLIA [id number] [address] Hematocrit (Bld) [Volume fraction] 27.0 % Low 39.0-51.0 [facility] Comment on above: Order Comment: Speci men Type: BLOOD SPECIMENOrdering Facility: [facility] Address: [address] [place] [address] Performed By: #### 5 8410-2 ####[facility] LABORATORYCLIA [id number] [address] OF [facility] Hemoglobin (Bld) [Mass/Vol] 8.3 g/dL Low 13.0-17.0 [facility] Comment on above: Order Comment: Speci men Type: BLOOD SPECIMENOrdering Facility: [facility] Address: [address] [place] [address] Performed By: #### 5 8410-2 ####[facility]ORATORYCLIA [id number] [address] MCH (RBC) [Entitic mass] 28.7 pg Normal 26.0-34.0 [facility] Comment on above: Order Comment: Speci men Type: BLOOD SPECIMENOrdering Facility: [facility] Address: [address] [place] [address] Performed By: #### 5 8410-2 ####[facility]ORATORYCLIA [id number] [address] MCHC (RBC) [Mass/Vol] 30.7 g/dL Normal 30.5-36.0 [facility] Comment on above: Order Comment: Speci men Type: BLOOD SPECIMENOrdering Facility: [facility] Address: [address] [place] [address] Performed By: #### 5 8410-2 ####[facility]ORATORYCLIA [id number] [address] MCV (RBC) [Entitic vol] 93.4 fL Normal 80.0-100.0 [facility] Comment on above: Order Comment: Speci men Type: BLOOD SPECIMENOrdering Facility: [facility] Address: [address] [place] [address] Performed By: #### 5 8410-2 ####[facility]ORATORYCLIA [id number] [address] Nucleated RBC (Bld) [#/Vol] 10*3/uL Normal <0.01 [facility] Comment on above: Order Comment: Speci men Type: BLOOD SPECIMENOrdering Facility: [facility] Address: [address] [place] [address] Performed By: #### 5 8410-2 ####[facility]ATORYCLIA [id number] [address] Platelet mean volume (Bld) [Entitic vol] 9.8 fL Normal 9.0-12.7 [facility] Comment on above: Order Comment: Speci men Type: BLOOD SPECIMENOrdering Facility: [facility] Address: [address] [place] [address] Performed By: #### 5 8410-2 ####[facility]ORATORYCLIA [id number] [address] [place] Platelets (Bld) [#/Vol] 169 10*3/uL Normal 150-400 [facility] Comment on above: Order Comment: Speci men Type: BLOOD SPECIMENOrdering Facility: [facility] Address: [address] [place] [address] Performed By: #### 5 8410-2 ####[facility]ORATORYCLIA [id number] [address] STATES OF [facility] RBC (Bld) [#/Vol] 2.89 10*6/uL Low 4.20-6.00 [facility] Comment on above: Order Comment: Speci men Type: BLOOD SPECIMENOrdering Facility: [facility] Address: [address] [place] [address] Performed By: #### 5 8410-2 ####[facility] LABORATORYCLIA [id number] [address] [place] WBC (Bld) [#/Vol] 9.03 10*3/uL Normal 3.70-11.00 [facility] Comment on above: Order Comment: Speci men Type: BLOOD SPECIMENOrdering Facility: [facility] Address: [address] [place] [address] Performed By: #### 5 8410-2 ####[facility] LABORATORYCLIA [id number] [address] OF [facility] CT BRAIN WO IVCONon 08-12-19 CT BRAIN WO IVCON Normal [facility] PT panel Coag (PPP)on 2021 INR Coag (PPP) [Relative time] 1.0 {INR} Normal 0.9-1.3 [facility] Comment on above: Order Comment: Shira feldman Type: BLOOD SPECIMENOrdering Facility: [facility] Address: [address] [id number] Result Comment: Yris min K Antagonist (VKA) Therapeutic Range: INR 2 to 3 (Target INR of 2.5)Note: For patients treated with VKA drugs, such as warfarin, the [employer] 2012 Guideline recommends [...] al. Chest 2012, 141:7S-47SNishimpatricia RA, et al. [facility] 2017, 70: 252-289 Performed By: #### 1 4979-9, 10049-0 ####[facility] LABORATORYCLIA [id number] [place] [address] [place] PT Coag (PPP) [Time] 11.4 s Normal 9.7-13.0 [facility] Comment on above: Order Comment: Shira feldman Type: BLOOD SPECIMENOrdering Facility: [facility] Address: [address] [place] [address] Performed By: #### 1 4979-9, 82534-9 ####[facility] LABORATORYCLIA [id number] [place] [address] [place] THERAPY NTon 08-11-2021 THERAPY NT Normal [facility] US DVT LOWER BILon 2 US DVT LOWER RAINER Normal [facility] US DVT UPPER BILon 2 US DVT UPPER RAINER Normal [facility] aPTT PPPon 08-11-2021 aPTT Coag (PPP) [Time] 26.9 s Normal 23.0-32.[address] [facility] Comment on above: Order Comment: Speci men Type: BLOOD SPECIMENOrdering Facility: [facility] Address: [address] [place] [address] Performed By: #### 1 4979-9, 48118-9 ####[facility] LABORATORYCLIA [id number] [place] [address] [place] Basic metabolic 2000 panelon 08-10-2021 Anion gap [Moles/Vol] 11 mmol/L Normal 9-18 [facility] Comment on above: Order Comment: Speci men Type: BLOOD SPECIMENOrdering Facility: [facility] Address: [address] [place] [address] Performed By: #### 2 4321-2 ####[facility] LABORATORYCLIA [id number] [place] [address] [place] Calcium [Mass/Vol] 8.7 mg/dL Normal 8.5-10.2 [facility] Comment on above: Order Comment: Speci men Type: BLOOD SPECIMENOrdering Facility: [facility] Address: [address] [place] [address] Performed By: #### 2 4321-2 ####[facility] LABORATORYCLIA [id number] [place] [address] [place] Chloride [Moles/Vol] 98 mmol/L Normal 97-105 [facility] Comment on above: Order Comment: Speci men Type: BLOOD SPECIMENOrdering Facility: [facility] Address: [address] [place] [address] Performed By: #### 2 4321-2 ####[facility]ORATORYCLIA [id number] [place] [address] [place] CO2 [Moles/Vol] 28 mmol/L Normal 22-30 [facility] Comment on above: Order Comment: Speci men Type: BLOOD SPECIMENOrdering Facility: [facility] Address: [address] [place] [address] Performed By: #### 2 4321-2 ####[facility] LABORATORYCLIA [id number] [address] STATES OF [facility] Creatinine [Mass/Vol] 0.59 mg/dL Low 0.73-1.22 [facility] Comment on above: Order Comment: Shira feldman Type: BLOOD SPECIMENOrdering Facility: [facility] Address: [address] [place] [address] Performed By: #### 2 4321-2 ####[facility] LABORATORYCLIA [id number] [address] ESTIMATED GLOMERULAR FILTRATION RATE 105 mL/min/1.73m??? Normal >=60 [facility] Comment on above: Order Comment: Shira feldman Type: BLOOD SPECIMENOrdering Facility: [facility] Address: [address] [place] [address] Result Comment: Luzmaria mated Glomerular Filtration Rate [...] 4321-2 ####[facility] LABORATORYCLIA [id number] [address] STATES OF [facility] Glucose [Mass/Vol] 118 mg/dL High 74-99 [facility] Comment on above: Order Comment: Shira francia Type: BLOOD SPECIMENOrdering Facility: [facility] Address: [address] [place] [address] Result Comment: The [place] [employer] (ADA) provides guidance for cutoff [...] Standards of Medical Care in Diabetes 2016, [place] [employer]. Diabetes Care. 2016.39(Suppl 1). Performed By: #### 2 4321-2 ####[facility] LABORATORYCLIA [id number] [place] [address] [place] Potassium [Moles/Vol] 3.7 mmol/L Normal 3.7-5.1 [facility] Comment on above: Order Comment: Speci men Type: BLOOD SPECIMENOrdering Facility: [facility] Address: [address] [place] [address] Performed By: #### 2 4321-2 ####[facility] LABORATORYCLIA [id number] [place] [address] [place] Sodium [Moles/Vol] 137 mmol/L Normal 136-144 [facility] Comment on above: Order Comment: Speci men Type: BLOOD SPECIMENOrdering Facility: [facility] Address: [address] [place] [address] Performed By: #### 2 4321-2 ####[facility] LABORATORYCLIA [id number] [place] [address] [place] Urea nitrogen [Mass/Vol] 23 mg/dL Normal 9-24 [facility] Comment on above: Order Comment: Speci men Type: BLOOD SPECIMENOrdering Facility: [facility] Address: [address] [place] [address] Performed By: #### 2 4321-2 ####[facility] LABORATORYCLIA [id number] [place] [address] [place] Anion gap [Moles/Vol] 17 mmol/L Normal 9-18 [facility] Comment on above: Order Comment: Speci men Type: BLOOD SPECIMENOrdering Facility: [facility] Address: [address] [place] [address] Performed By: #### 1 9123-9, 2777-1, 43729-6 ####[facility]ORATORYCLIA [id number] [place] [address] [place] Calcium [Mass/Vol] 7.7 mg/dL Low 8.5-10.2 [facility] Comment on above: Order Comment: Speci men Type: BLOOD SPECIMENOrdering Facility: [facility] Address: [address] [place] [address] Performed By: #### 1 9123-9, 27711-04, 07615-6 ####[facility] LABORATORYCLIA [id number] [place] [address] [place] Chloride [Moles/Vol] 86 mmol/L Low 97-105 [facility] Comment on above: Order Comment: Speci men Type: BLOOD SPECIMENOrdering Facility: [facility] Address: [address] [place] [address] Performed By: #### 1 9123-9, 27711-04, 89579-4 ####[facility] LABORATORYCLIA [id number] [address] [place] CO2 [Moles/Vol] 24 mmol/L Normal 22-30 [facility] Comment on above: Order Comment: Speci men Type: BLOOD SPECIMENOrdering Facility: [facility] Address: [address] [place] [address] Performed By: #### 1 9123-9, 27711-04, 66132-9 ####[facility] LABORATORYCLIA [id number] [place] [address] [place] Creatinine [Mass/Vol] 0.53 mg/dL Low 0.73-1.22 [facility] Comment on above: Order Comment: Speci men Type: BLOOD SPECIMENOrdering Facility: [facility] Address: [address] [place] [address] Performed By: #### 1 9123-9, 27711-04, 80272-6 ####[facility] LABORATORYCLIA [id number] [address] [place] ESTIMATED GLOMERULAR FILTRATION RATE 108 mL/min/1.73m??? Normal >=60 [facility] Comment on above: Order Comment: Shira feldman Type: BLOOD SPECIMENOrdering Facility: [facility] Address: [address] [place] [address] Result Comment: Luzmaria mated Glomerular Filtration Rate [...] GFR. Performed By: #### 1 9123-9, 2777-1, 98207-3 ####[facility]ITALCL[facility] [id number] [place] [address] [place] Glucose [Mass/Vol] 455 mg/dL High 74-99 [facility] Comment on above: Order Comment: Shira feldman Type: BLOOD SPECIMENOrdering Facility: [facility] Address: [address] [place] [address] Result Comment: The [place] Diabetes Association (ADA) provides guidance for cutoff [...] Standards of Medical Care in Diabetes 2016, [place] [employer]. Diabetes Care. 2016.39(Suppl 1). Performed By: #### 1 9123-9, 2777-1, 37708-7 ####[facility]ORATORYCLIA [id number] [place] [address] [place] Potassium [Moles/Vol] 3.4 mmol/L Low 3.7-5.1 [facility] Comment on above: Order Comment: [facility] Type: BLOOD SPECIMENOrdering Facility: [facility] Address: [address] [place] [address] Performed By: #### 1 9123-9, 2777-1, 41383-7 ####[facility]ORATORYCLIA [id number] [address] [place] Sodium [Moles/Vol] 127 mmol/L Low 136-144 [facility] Comment on above: Order Comment: Speci men Type: BLOOD SPECIMENOrdering Facility: [facility] Address: [address] [place] [address] Performed By: #### 1 9123-9, 2777-1, 29523-2 ####[facility]ORATORYCLIA [id number] [address] [place] Urea nitrogen [Mass/Vol] 21 mg/dL Normal 9-24 [facility] Comment on above: Order Comment: Speci men Type: BLOOD SPECIMENOrdering Facility: [facility] Address: [address] [place] [address] Performed By: #### 1 9123-9, 2777-, 39373-6 ####[facility] LABORATORYCLIA [id number] [address] [place] CASE MANAGEMon 08-10-2021 CASE MANAGEM Normal [facility] CBC W Auto Differential pane l (Bld)on 08-10-2021 Basophils (Bld) [#/Vol] 0.04 10*3/uL Normal <0.11 [facility] Comment on above: Order Comment: Speci men Type: BLOOD SPECIMENOrdering Facility: [facility] Address: [address] [place] [address] Performed By: #### 5 7021-8 ####[facility]ORATORYCLIA [id number] [address] [place] Basophils/100 WBC (Bld) 0.4 % Normal [facility] Comment on above: Order Comment: Speci men Type: BLOOD SPECIMENOrdering Facility: [facility] Address: [address] [place] [address] Performed By: #### 5 7021-8 ####[facility]ORATORYCLIA [id number] [address] Differential cell count method Nom (Bld) Auto Normal [facility] Comment on above: Order Comment: Speci men Type: BLOOD SPECIMENOrdering Facility: [facility] Address: [address] [place] [address] Performed By: #### 5 7021-8 ####[facility]ORATORYCLIA [id number] [address] Eosinophils (Bld) [#/Vol] 0.11 10*3/uL Normal <0.46 [facility] Comment on above: Order Comment: Speci men Type: BLOOD SPECIMENOrdering Facility: [facility] Address: [address] [place] [address] Performed By: #### 5 7021-8 ####[facility]ORATORYCLIA [id number] [address] Eosinophils/100 WBC (Bld) 1.1 % Normal [facility] Comment on above: Order Comment: Speci men Type: BLOOD SPECIMENOrdering Facility: [facility] Address: [address] [place] [address] Performed By: #### 5 7021-8 ####[facility]ORATORYCLIA [id number] [address] Erythrocyte distribution width (RBC) [Ratio] 17.2 % High 11.5-15.0 [facility] Comment on above: Order Comment: Speci men Type: BLOOD SPECIMENOrdering Facility: [facility] Address: [address] [place] [address] Performed By: #### 5 7021-8 ####[facility]ORATORYCLIA [id number] [address] Hematocrit (Bld) [Volume fraction] 25.5 % Low 39.0-51.0 [facility] Comment on above: Order Comment: Speci men Type: BLOOD SPECIMENOrdering Facility: [facility] Address: [address] [place] [address] Performed By: #### 5 7021-8 ####[facility]ORATORYCLIA [id number] [address] Hemoglobin (Bld) [Mass/Vol] 7.9 g/dL Low 13.0-17.0 [facility] Comment on above: Order Comment: Speci men Type: BLOOD SPECIMENOrdering Facility: [facility] Address: [address] [place] [address] Performed By: #### 5 7021-8 ####[facility]ORATORYCLIA [id number] [address] IMMATURE GRAN % 0.4 % Normal [facility] Comment on above: Order Comment: Speci men Type: BLOOD SPECIMENOrdering Facility: [facility] Address: [address] [place] [address] Performed By: #### 5 7021-8 ####[facility]ORATORYCLIA [id number] [address] IMMATURE GRAN ABS 0.04 k/uL Normal <0.10 [facility] Comment on above: Order Comment: Speci men Type: BLOOD SPECIMENOrdering Facility: [facility] Address: [address] [place] [address] Performed By: #### 5 7021-8 ####[facility]ORATORYCLIA [id number] [address] Lymphocytes (Bld) [#/Vol] 1.66 10*3/uL Normal 1.00-4.00 [facility] Comment on above: Order Comment: Speci men Type: BLOOD SPECIMENOrdering Facility: [facility] Address: [address] [place] [address] Performed By: #### 5 7021-8 ####[facility]ORATORYCLIA [id number] [address] Lymphocytes/100 WBC (Bld) 16.2 % Normal [facility] Comment on above: Order Comment: Speci men Type: BLOOD SPECIMENOrdering Facility: [facility] Address: [address] [place] [address] Performed By: #### 5 7021-8 ####[facility]ORATORYCLIA [id number] [address] MCH (RBC) [Entitic mass] 28.5 pg Normal 26.0-34.0 [facility] Comment on above: Order Comment: Speci men Type: BLOOD SPECIMENOrdering Facility: [facility] Address: [address] [place] [address] Performed By: #### 5 7021-8 ####[facility]ORATORYCLIA [id number] [address] MCHC (RBC) [Mass/Vol] 31.0 g/dL Normal 30.5-36.0 [facility] Comment on above: Order Comment: Speci men Type: BLOOD SPECIMENOrdering Facility: [facility] Address: [address] [place] [address] Performed By: #### 5 7021-8 ####[facility]ORATORYCLIA [id number] [address] MCV (RBC) [Entitic vol] 92.1 fL Normal 80.0-100.0 [facility] Comment on above: Order Comment: Speci men Type: BLOOD SPECIMENOrdering Facility: [facility] Address: [address] [place] [address] Performed By: #### 5 7021-8 ####[facility]ORATORYCLIA [id number] [address] Monocytes (Bld) [#/Vol] 0.51 10*3/uL Normal <0.87 [facility] Comment on above: Order Comment: Speci men Type: BLOOD SPECIMENOrdering Facility: [facility] Address: [address] [place] [address] Performed By: #### 5 7021-8 ####[facility]ITALCLIA [id number] [address] [place] Monocytes/100 WBC (Bld) 5.0 % Normal [facility] Comment on above: Order Comment: Speci men Type: BLOOD SPECIMENOrdering Facility: [facility] Address: [address] [place] [address] Performed By: #### 5 7021-8 ####[facility]ORATORYCLIA [id number] [place] [address] [place] Neutrophils (Bld) [#/Vol] 7.91 10*3/uL High 1.45-7.50 [facility] Comment on above: Order Comment: Speci men Type: BLOOD SPECIMENOrdering Facility: [facility] Address: [address] [place] [address] Performed By: #### 5 7021-8 ####[facility]ORATORYCLIA [id number] [address] Neutrophils/100 WBC (Bld) 76.9 % Normal [facility] Comment on above: Order Comment: Speci men Type: BLOOD SPECIMENOrdering Facility: [facility] Address: [address] [place] [address] Performed By: #### 5 7021-8 ####[facility]ORATORYCLIA [id number] [address] [place] Nucleated RBC (Bld) [#/Vol] 10*3/uL Normal <0.01 [facility] Comment on above: Order Comment: Speci men Type: BLOOD SPECIMENOrdering Facility: [facility] Address: [address] [place] [address] Performed By: #### 5 7021-8 ####[facility]ATORYCLIA [id number] [address] [place] Nucleated RBC/100 WBC (Bld) [Ratio] 0.0 /100 WBC Normal [facility] Comment on above: Order Comment: Speci men Type: BLOOD SPECIMENOrdering Facility: [facility] Address: [address] Performed By: #### 5 7021-8 ####[facility]ORATORYCLIA [id number] [address] Platelet mean volume (Bld) [Entitic vol] 10.3 fL Normal 9.0-12.7 [facility] Comment on above: Order Comment: Speci men Type: BLOOD SPECIMENOrdering Facility: [facility] Address: [address] [place], [place] [address] Performed By: #### 5 7021-8 ####[facility]ORATORYCLIA [id number] [address] [place] Platelets (Bld) [#/Vol] 152 10*3/uL Normal 150-400 [facility] Comment on above: Order Comment: Speci men Type: BLOOD SPECIMENOrdering Facility: [facility] Address: [address] [place], [place] [address] Performed By: #### 5 7021-8 ####[facility]ORATORYCLIA [id number] [address] [place] RBC (Bld) [#/Vol] 2.77 10*6/uL Low 4.20-6.00 [facility] Comment on above: Order Comment: Speci men Type: BLOOD SPECIMENOrdering Facility: [facility] Address: [address] [place], [place] [address] Performed By: #### 5 7021-8 ####[facility]ORATORYCLIA [id number] [address] [place] WBC (Bld) [#/Vol] 10.27 10*3/uL Normal 3.70-11.00 [facility] Comment on above: Order Comment: Speci men Type: BLOOD SPECIMENOrdering Facility: [facility] Address: [address] [place], [place] [address] Performed By: #### 5 7021-8 ####[facility]ORATORYCLIA [id number] [address] Magnesium SerPl-mCncon 08-10 Magnesium [Mass/Vol] 1.8 mg/dL Normal 1.7-2.3 [facility] Comment on above: Order Comment: Speci men Type: BLOOD SPECIMENOrdering Facility: [facility] Address: [address] [place] [address] Performed By: #### 1 9123-9, 2777-1, 86065-9 ####[facility]ORATORYCLIA [id number] [address] NURSING PROGon 08-10-2021 NURSING PROG Normal [facility] NURSING PROG Normal [facility] NUTRITIONon 08-10-2021 NUTRITION Normal [facility] Phosphate SerPl-mCncon 08-10 Phosphate [Mass/Vol] 3.7 mg/dL Normal 2.7-4.8 [facility] Comment on above: Order Comment: Speci men Type: BLOOD SPECIMENOrdering Facility: [facility] Address: [address] [place] [address] Performed By: #### 1 9123-9, 2777-1, 22753-1 ####[facility]ORATORYCLIA [id number] [address] ALLIED HEALTHon 08-09-2021 ALLIED HEALTH Normal [...] Comment: Speci men Type: BLOOD SPECIMENOrdering Facility: [facility] Address: [address] [place] [address] Performed By: #### 2 4321-2, 78471-7, 2777-1 ####[facility]ORATORYCLIA [id number] [address] STATES OF [facility] Calcium [Mass/Vol] 9.2 mg/dL Normal 8.5-10.2 [facility] Comment on above: Order Comment: Speci men Type: BLOOD SPECIMENOrdering Facility: [facility] Address: [address] [place] [address] Performed By: #### 2 4321-2, , 2776-05 ####[facility]ATORYCLIA [id number] [place] [address] [place] Chloride [Moles/Vol] 97 mmol/L Normal 97-105 [facility] Comment on above: Order Comment: Speci men Type: BLOOD SPECIMENOrdering Facility: [facility] Address: [address] [place] [address] Performed By: #### 2 4321-2, , 2776-05 ####[facility]ATORYCLIA [id number] [address] STATES OF [facility] CO2 [Moles/Vol] 30 mmol/L Normal 22-30 [facility] Comment on above: Order Comment: Speci men Type: BLOOD SPECIMENOrdering Facility: [facility] Address: [address] [place] [address] Performed By: #### 2 4321-2, , 2776-05 ####[facility]ORATORYCLIA [id number] [address] [place] Creatinine [Mass/Vol] 0.51 mg/dL Low 0.73-1.22 [facility] Comment on above: Order Comment: Speci men Type: BLOOD SPECIMENOrdering Facility: [facility] Address: [address] [place] [address] Performed By: #### 2 4321-2, , 2776-05 ####[facility]ORATORYCLIA [id number] [address] [place] ESTIMATED GLOMERULAR FILTRATION RATE 110 mL/min/1.73m??? Normal >=60 [facility] Comment on above: Order Comment: Shira feldman Type: BLOOD SPECIMENOrdering Facility: [facility] Address: [address] [place] [address] Result Comment: Luzmaria mated Glomerular Filtration Rate [...] actual GFR. Performed By: #### 2 4321-2, 84893-9, 2776-05 ####[facility]ATORYCLIA [id number] [place] [address] [place] Glucose [Mass/Vol] 106 mg/dL High 74-99 [facility] Comment on above: Order Comment: Shira feldman Type: BLOOD SPECIMENOrdering Facility: [facility] Address: [address] [place] [address] Result Comment: The [place] Diabetes Association (ADA) provides guidance for cutoff [...] Standards of Medical Care in Diabetes 2016, [place] [employer]. Diabetes Care. 2016.39(Suppl 1). Performed By: #### 2 4321-2, , 2776-05 ####[facility]ATORYCLIA [id number] [place] [address] [place] Potassium [Moles/Vol] 4.1 mmol/L Normal 3.7-5.1 [facility] Comment on above: Order Comment: Shira feldman Type: BLOOD SPECIMENOrdering Facility: [facility] Address: [address] [place] [address] Performed By: #### 2 4321-2, , 1 ####[facility]ORATORYCLIA [id number] [address] STATES OF [facility] Sodium [Moles/Vol] 135 mmol/L Low 136-144 [facility] Comment on above: Order Comment: Speci men Type: BLOOD SPECIMENOrdering Facility: [facility] Address: [address] [place] [address] Performed By: #### 2 4321-2, , 2776-05 ####[facility]ATORYCLIA [id number] [address] [place] Urea nitrogen [Mass/Vol] 26 mg/dL High 9-24 [facility] Comment on above: Order Comment: Speci men Type: BLOOD SPECIMENOrdering Facility: [facility] Address: [address] [place] [address] Performed By: #### 2 4321-2, , 2776-05 ####[facility]ATORYCLIA [id number] [address] [place] CBC W Auto Differential pane l (Bld)on 08-09-2021 Basophils (Bld) [#/Vol] 0.06 10*3/uL Normal <0.11 [facility] Comment on above: Order Comment: Speci men Type: BLOOD SPECIMENOrdering Facility: [facility] Address: [address] [place] [address] Performed By: #### 5 7021-8 ####[facility]ORATORYCLIA [id number] [address] [place] Basophils/100 WBC (Bld) 0.5 % Normal [facility] Comment on above: Order Comment: Speci men Type: BLOOD SPECIMENOrdering Facility: [facility] Address: [address] [place] [address] Performed By: #### 5 7021-8 ####[facility]ATORYCLIA [id number] [address] Differential cell count method Nom (Bld) Auto Normal [facility] Comment on above: Order Comment: Speci men Type: BLOOD SPECIMENOrdering Facility: [facility] Address: [address] [place] [address] Performed By: #### 5 7021-8 ####[facility]ORATORYCLIA [id number] [address] [place] Eosinophils (Bld) [#/Vol] 0.42 10*3/uL Normal <0.46 [facility] Comment on above: Order Comment: Speci men Type: BLOOD SPECIMENOrdering Facility: [facility] Address: [address] [place] [address] Performed By: #### 5 7021-8 ####[facility]ATORYCLIA [id number] [address] Eosinophils/100 WBC (Bld) 3.8 % Normal [facility] Comment on above: Order Comment: Speci men Type: BLOOD SPECIMENOrdering Facility: [facility] Address: [address] [place] [address] Performed By: #### 5 7021-8 ####[facility]ORATORYCLIA [id number] [address] [place] Erythrocyte distribution width (RBC) [Ratio] 17.6 % High 11.5-15.0 [facility] Comment on above: Order Comment: Speci men Type: BLOOD SPECIMENOrdering Facility: [facility] Address: [address] [place] [address] Performed By: #### 5 7021-8 ####[facility]ATORYCLIA [id number] [address] Hematocrit (Bld) [Volume fraction] 29.3 % Low 39.0-51.0 [facility] Comment on above: Order Comment: Speci men Type: BLOOD SPECIMENOrdering Facility: [facility] Address: [address] [place] [address] Performed By: #### 5 7021-8 ####[facility]ORATORYCLIA [id number] [address] STATES OF [facility] Hemoglobin (Bld) [Mass/Vol] 9.0 g/dL Low 13.0-17.0 [facility] Comment on above: Order Comment: Speci men Type: BLOOD SPECIMENOrdering Facility: [facility] Address: [address] [place] [address] Performed By: #### 5 7021-8 ####[facility]ATORYCLIA [id number] [address] IMMATURE GRAN % 0.5 % Normal [facility] Comment on above: Order Comment: Speci men Type: BLOOD SPECIMENOrdering Facility: [facility] Address: [address] [place] [address] Performed By: #### 5 7021-8 ####[facility]ATORYCLIA [id number] [address] IMMATURE GRAN ABS 0.05 k/uL Normal <0.10 [facility] Comment on above: Order Comment: Speci men Type: BLOOD SPECIMENOrdering Facility: [facility] Address: [address] [place] [address] Performed By: #### 5 7021-8 ####[facility]ATORYCLIA [id number] [address] [place] Lymphocytes (Bld) [#/Vol] 2.00 10*3/uL Normal 1.00-4.00 [facility] Comment on above: Order Comment: Speci men Type: BLOOD SPECIMENOrdering Facility: [facility] Address: [address] [place] [address] Performed By: #### 5 7021-8 ####[facility]ATORYCLIA [id number] [address] Lymphocytes/100 WBC (Bld) 18.1 % Normal [facility] Comment on above: Order Comment: Speci men Type: BLOOD SPECIMENOrdering Facility: [facility] Address: [address] [place] [address] Performed By: #### 5 7021-8 ####[facility]ATORYCLIA [id number] [address] MCH (RBC) [Entitic mass] 28.1 pg Normal 26.0-34.0 [facility] Comment on above: Order Comment: Speci men Type: BLOOD SPECIMENOrdering Facility: [facility] Address: [address] [place] [address] Performed By: #### 5 7021-8 ####[facility]ATORYCLIA [id number] [address] MCHC (RBC) [Mass/Vol] 30.7 g/dL Normal 30.5-36.0 [facility] Comment on above: Order Comment: Speci men Type: BLOOD SPECIMENOrdering Facility: [facility] Address: [address] [place] [address] Performed By: #### 5 7021-8 ####[facility] LABORATORYCLIA [id number] [address] STATES OF [facility] MCV (RBC) [Entitic vol] 91.6 fL Normal 80.0-100.0 [facility] Comment on above: Order Comment: Speci men Type: BLOOD SPECIMENOrdering Facility: [facility] Address: [address] [place], [place] [address] Performed By: #### 5 7021-8 ####[facility] LABORATORYCLIA [id number] [address] Monocytes (Bld) [#/Vol] 0.68 10*3/uL Normal <0.87 [facility] Comment on above: Order Comment: Speci men Type: BLOOD SPECIMENOrdering Facility: [facility] Address: [address] [place] [address] Performed By: #### 5 7021-8 ####[facility] LABORATORYCLIA [id number] [address] Monocytes/100 WBC (Bld) 6.2 % Normal [facility] Comment on above: Order Comment: Speci men Type: BLOOD SPECIMENOrdering Facility: [facility] Address: [address] [place] [address] Performed By: #### 5 7021-8 ####[facility]ORATORYCLIA [id number] [address] [place] Neutrophils (Bld) [#/Vol] 7.82 10*3/uL High 1.45-7.50 [facility] Comment on above: Order Comment: Speci men Type: BLOOD SPECIMENOrdering Facility: [facility] Address: [address] [place] [address] Performed By: #### 5 7021-8 ####[facility]ORATORYCLIA [id number] [address] [place] Neutrophils/100 WBC (Bld) 70.9 % Normal [facility] Comment on above: Order Comment: Speci men Type: BLOOD SPECIMENOrdering Facility: [facility] Address: [address] [place], [place] [address] Performed By: #### 5 7021-8 ####[facility]ORATORYCLIA [id number] [address] [place] Nucleated RBC (Bld) [#/Vol] 10*3/uL Normal <0.01 [facility] Comment on above: Order Comment: Speci men Type: BLOOD SPECIMENOrdering Facility: [facility] Address: [address] [place], [place] [address] Performed By: #### 5 7021-8 ####[facility] LABORATORYCLIA [id number] [address] [place] Nucleated RBC/100 WBC (Bld) [Ratio] 0.0 /100 WBC Normal [facility] Comment on above: Order Comment: Speci men Type: BLOOD SPECIMENOrdering Facility: [facility] Address: [address] [place] [address] Performed By: #### 5 7021-8 ####[facility]ORATORYCLIA [id number] [address] [place] Platelet mean volume (Bld) [Entitic vol] 10.1 fL Normal 9.0-12.7 [facility] Comment on above: Order Comment: Speci men Type: BLOOD SPECIMENOrdering Facility: [facility] Address: [address] [place] [address] Performed By: #### 5 7021-8 ####[facility] LABORATORYCLIA [id number] [address] [place] Platelets (Bld) [#/Vol] 160 10*3/uL Normal 150-400 [facility] Comment on above: Order Comment: Speci men Type: BLOOD SPECIMENOrdering Facility: [facility] Address: [address] [place] [address] Performed By: #### 5 7021-8 ####[facility] LABORATORYCLIA [id number] [place] [address] [place] RBC (Bld) [#/Vol] 3.20 10*6/uL Low 4.20-6.00 [facility] Comment on above: Order Comment: Speci men Type: BLOOD SPECIMENOrdering Facility: [facility] Address: [address] [place] [address] Performed By: #### 5 7021-8 ####[facility] LABORATORYCLIA [id number] [place] [address] [place] WBC (Bld) [#/Vol] 11.03 10*3/uL High 3.70-11.00 [facility] Comment on above: Order Comment: Speci men Type: BLOOD SPECIMENOrdering Facility: [facility] Address: [address] [place] [address] Performed By: #### 5 7021-8 ####[facility] LABORATORYCLIA [id number] [address] [place] CONSULT PROGon 08-09-2021 CONSULT PROG Normal [facility] CT BRAIN WO IVCONon 08-10-[address] BRAIN WO IVCON Normal [facility] CT BRAIN WO IVCON Normal [facility] Magnesium SerPl-mCncon 08-09 Magnesium [Mass/Vol] 2.0 mg/dL Normal 1.7-2.3 [facility] Comment on above: Order Comment: Speci men Type: BLOOD SPECIMENOrdering Facility: [facility] Address: [address] [place] [address] Performed By: #### 2 4321-2, 65048-7, 2777-1 ####[facility] LABORATORYCLIA [id number] [address] OF [facility] NURSING PROGon 08-09-2021 NURSING PROG Normal [facility] OPERATIVE NOon 08-09-2021 OPERATIVE NO Normal [facility] PT panel Coag (PPP)on 2021 INR Coag (PPP) [Relative time] 1.1 {INR} Normal 0.9-1.3 [facility] Comment on above: Order Comment: Speci men Type: BLOOD SPECIMENOrdering Facility: [facility] Address: [address] [place] [address] Result Comment: Yris min K Antagonist (VKA) Therapeutic Range: INR 2 to 3 (Target INR of 2.5)Note: For patients treated with VKA drugs, such as warfarin, the [employer] 2012 Guideline recommends [...] al. Chest 2012, 141:7S-47SAlba MURRY, et al. [facility] 2017, 70: 252-289 Performed By: #### 3 4528-0, 03812-4 ####[facility] LABORATORYCLIA [id number] [address] [place] PT Coag (PPP) [Time] 11.7 s Normal 9.7-13.0 [facility] Comment on above: Order Comment: Speci men Type: BLOOD SPECIMENOrdering Facility: [facility] Address: [address] [place] [address] Performed By: #### 3 4528-0, 00948-2 ####[facility] LABORATORYCLIA [id number] [address] [place] Phosphate SerPl-mCncon 08-09 Phosphate [Mass/Vol] 4.0 mg/dL Normal 2.7-4.8 [facility] Comment on above: Order Comment: Speci men Type: BLOOD SPECIMENOrdering Facility: [facility] Address: [address] [place] [address] Performed By: #### 2 4321-2, 87508-7, 2777-1 ####[facility] LABORATORYCLIA [id number] [address] OF [facility] THERAPY NTon 08-09-2021 THERAPY NT Normal [facility] THERAPY NT Normal [facility] TYPE AND SCREENon 08-09-2021 ABO O Normal [facility] Comment on above: Order Comment: Speci men Type: BLOOD SPECIMENOrdering Facility: [facility] Address: [address] [place] [address] Performed By: #### T SCR ####[facility] BLOOD BANKCLIA [id number] [address] OF [place] HISTORICAL AB SCR STATUS Negative Normal [facility] Comment on above: Order Comment: Speci men Type: BLOOD SPECIMENOrdering Facility: [facility] Address: [address] [place] [address] Performed By: #### T SCR ####[facility] BLOOD BANKCLIA [id number] [address] Rh Nom (Bld) Positive Normal [facility] Comment on above: Order Comment: Speci men Type: BLOOD SPECIMENOrdering Facility: [facility] Address: [address] [place] [address] Performed By: #### T SCR ####[facility] BLOOD BANKCLIA [id number] [address] TYPE AND SCREEN EXPIRATION 08/12/2021 23:59 Normal [facility] Comment on above: Order Comment: Speci men Type: BLOOD SPECIMENOrdering Facility: [facility] Address: [address] [place] [address] Performed By: #### T SCR ####[facility] BLOOD BANKCLIA [id number] [address] XR ABD 2V SUPINE W UPR/DECUB [...] Coag (PPP) [Time] 26.8 s Normal 23.0-32.[address] [facility] Comment on above: Order Comment: Speci men Type: BLOOD SPECIMENOrdering Facility: [facility] Address: [address] [place] [address] Performed By: #### 3 4528-0, 42973-7 ####[facility] LABORATORYCLIA [id number] [address] CASE MANAGEMon 08-08-2021 CASE MANAGEM Normal [facility] CBC W Auto Differential pane l (Bld)on 08-08-2021 Basophils (Bld) [#/Vol] 0.05 10*3/uL Normal <0.11 [facility] Comment on above: Order Comment: Speci men Type: BLOOD SPECIMENOrdering Facility: [facility] Address: [address] [place] [place] [address] Performed By: #### 5 7021-8 ####[facility]ORATORYCLIA [id number] [address] Basophils/100 WBC (Bld) 0.5 % Normal [facility] Comment on above: Order Comment: Speci men Type: BLOOD SPECIMENOrdering Facility: [facility] Address: [address] [place] [address] Performed By: #### 5 7021-8 ####[facility] LABORATORYCLIA [id number] [address] Differential cell count method Nom (Bld) Auto Normal [facility] Comment on above: Order Comment: Speci men Type: BLOOD SPECIMENOrdering Facility: [facility] Address: [address] [place] [address] Performed By: #### 5 7021-8 ####[facility] LABORATORYCLIA [id number] [address] [place] Eosinophils (Bld) [#/Vol] 0.17 10*3/uL Normal <0.46 [facility] Comment on above: Order Comment: Speci men Type: BLOOD SPECIMENOrdering Facility: [facility] Address: [address] [place] [address] Performed By: #### 5 7021-8 ####[facility]ORATORYCLIA [id number] [address] Eosinophils/100 WBC (Bld) 1.6 % Normal [facility] Comment on above: Order Comment: Speci men Type: BLOOD SPECIMENOrdering Facility: [facility] Address: [address] [place] [address] Performed By: #### 5 7021-8 ####[facility]ORATORYCLIA [id number] [address] [place] Erythrocyte distribution width (RBC) [Ratio] 17.8 % High 11.5-15.0 [facility] Comment on above: Order Comment: Speci men Type: BLOOD SPECIMENOrdering Facility: [facility] Address: [address] [place] [address] Performed By: #### 5 7021-8 ####[facility] LABORATORYCLIA [id number] [address] Hematocrit (Bld) [Volume fraction] 29.6 % Low 39.0-51.0 [facility] Comment on above: Order Comment: Speci men Type: BLOOD SPECIMENOrdering Facility: [facility] Address: [address] [place] [address] Performed By: #### 5 7021-8 ####[facility] LABORATORYCLIA [id number] [address] Hemoglobin (Bld) [Mass/Vol] 9.0 g/dL Low 13.0-17.0 [facility] Comment on above: Order Comment: Speci men Type: BLOOD SPECIMENOrdering Facility: [facility] Address: [address] [place] [address] Performed By: #### 5 7021-8 ####[facility] LABORATORYCLIA [id number] [address] IMMATURE GRAN % 0.5 % Normal [facility] Comment on above: Order Comment: Speci men Type: BLOOD SPECIMENOrdering Facility: [facility] Address: [address] [place] [address] Performed By: #### 5 7021-8 ####[facility] LABORATORYCLIA [id number] [address] IMMATURE GRAN ABS 0.05 k/uL Normal <0.10 [facility] Comment on above: Order Comment: Speci men Type: BLOOD SPECIMENOrdering Facility: [facility] Address: [address] [place] [address] Performed By: #### 5 7021-8 ####[facility] LABORATORYCLIA [id number] [place] [address] [place] Lymphocytes (Bld) [#/Vol] 1.93 10*3/uL Normal 1.00-4.00 [facility] Comment on above: Order Comment: Speci men Type: BLOOD SPECIMENOrdering Facility: [facility] Address: [address] [place] [address] Performed By: #### 5 7021-8 ####[facility] LABORATORYCLIA [id number] [address] [place] Lymphocytes/100 WBC (Bld) 18.2 % Normal [facility] Comment on above: Order Comment: Speci men Type: BLOOD SPECIMENOrdering Facility: [facility] Address: [address] [place] [address] Performed By: #### 5 7021-8 ####[facility] LABORATORYCLIA [id number] [address] [place] MCH (RBC) [Entitic mass] 28.1 pg Normal 26.0-34.0 [facility] Comment on above: Order Comment: Speci men Type: BLOOD SPECIMENOrdering Facility: [facility] Address: [address] [place] [address] Performed By: #### 5 7021-8 ####[facility] LABORATORYCLIA [id number] [address] [place] MCHC (RBC) [Mass/Vol] 30.4 g/dL Low 30.5-36.0 [facility] Comment on above: Order Comment: Speci men Type: BLOOD SPECIMENOrdering Facility: [facility] Address: [address] [place] [address] Performed By: #### 5 7021-8 ####[facility] LABORATORYCLIA [id number] [address] MCV (RBC) [Entitic vol] 92.5 fL Normal 80.0-100.0 [facility] Comment on above: Order Comment: Speci men Type: BLOOD SPECIMENOrdering Facility: [facility] Address: [address] [place] [address] Performed By: #### 5 7021-8 ####[facility]ORATORYCLIA [id number] [place] [address] [place] Monocytes (Bld) [#/Vol] 0.75 10*3/uL Normal <0.87 [facility] Comment on above: Order Comment: Speci men Type: BLOOD SPECIMENOrdering Facility: [facility] Address: [address] [place] [address] Performed By: #### 5 7021-8 ####[facility]ORATORYCLIA [id number] [address] [place] Monocytes/100 WBC (Bld) 7.1 % Normal [facility] Comment on above: Order Comment: Speci men Type: BLOOD SPECIMENOrdering Facility: [facility] Address: [address] [place] [address] Performed By: #### 5 7021-8 ####[facility] LABORATORYCLIA [id number] [address] [place] Neutrophils (Bld) [#/Vol] 7.65 10*3/uL High 1.45-7.50 [facility] Comment on above: Order Comment: Speci men Type: BLOOD SPECIMENOrdering Facility: [facility] Address: [address] [place] [address] Performed By: #### 5 7021-8 ####[facility]ORATORYCLIA [id number] [address] [place] Neutrophils/100 WBC (Bld) 72.1 % Normal [facility] Comment on above: Order Comment: Speci men Type: BLOOD SPECIMENOrdering Facility: [facility] Address: [address] [place] [address] Performed By: #### 5 7021-8 ####[facility] LABORATORYCLIA [id number] [place] [address] [place] Nucleated RBC (Bld) [#/Vol] 10*3/uL Normal <0.01 [facility] Comment on above: Order Comment: Speci men Type: BLOOD SPECIMENOrdering Facility: [facility] Address: [address] [place] [address] Performed By: #### 5 7021-8 ####[facility] LABORATORYCLIA [id number] [address] Nucleated RBC/100 WBC (Bld) [Ratio] 0.0 /100 WBC Normal [facility] Comment on above: Order Comment: Speci men Type: BLOOD SPECIMENOrdering Facility: [facility] Address: [address] [place] [address] Performed By: #### 5 7021-8 ####[facility] LABORATORYCLIA [id number] [address] [place] Platelet mean volume (Bld) [Entitic vol] 9.8 fL Normal 9.0-12.7 [facility] Comment on above: Order Comment: Speci men Type: BLOOD SPECIMENOrdering Facility: [facility] Address: [address] [place] [address] Performed By: #### 5 7021-8 ####[facility] LABORATORYCLIA [id number] [address] [place] Platelets (Bld) [#/Vol] 175 10*3/uL Normal 150-400 [facility] Comment on above: Order Comment: Speci men Type: BLOOD SPECIMENOrdering Facility: [facility] Address: [address] [place] [address] Performed By: #### 5 7021-8 ####[facility] LABORATORYCLIA [id number] [address] [place] RBC (Bld) [#/Vol] 3.20 10*6/uL Low 4.20-6.00 [facility] Comment on above: Order Comment: Speci men Type: BLOOD SPECIMENOrdering Facility: [facility] Address: [address] [place] [address] Performed By: #### 5 7021-8 ####[facility] LABORATORYCLIA [id number] [place] WBC (Bld) [#/Vol] 10.60 10*3/uL Normal 3.70-11.00 [facility] Comment on above: Order Comment: Speci men Type: BLOOD SPECIMENOrdering Facility: [facility] Address: [address] [place] [address] Performed By: #### 5 7021-8 ####[facility] LABORATORYCLIA [id number] [address] [place] CT BRAIN WO IVCONon 08-09-19 CT BRAIN WO IVCON Normal [facility] NURSING PROGon 08-08-2021 NURSING PROG Normal [facility] Prealbumin [Mass/Vol]on Prealbumin Nephelometry [Mass/Vol] 29 mg/dL Normal 17-36 [facility] Comment on above: Order Comment: Speci men Type: BLOOD SPECIMENOrdering Facility: [facility] Address: [address] [place] [address] Performed By: #### 1 4338-8 ####[facility] LABORATORYCLIA [id number] [address] OF [facility] SARS-CoV-2 RNA Resp Ql MEGAN+p robeon 08-08-2021 SARS-CoV-2 (COVID-19) RNA MEGAN+probe Ql (Resp) COVID 19 RESULT: SARS-CoV-2 (Agent of COVID-19) Not Detected by RT-PCR or equivalent method. This test has been authorized by FDA under an Emergency Use Authorization (EUA). Normal [facility] Comment on above: Performed By: #### 9 4500-6 ####[facility] LABORATORYCLIA [id number] [address] [place] ALLIED HEALTHon 08-07-2021 ALLIED HEALTH Normal [facility] Basic metabolic 2000 panelon 08-07-2021 Anion gap [Moles/Vol] 9 mmol/L Normal 9-18 [facility] Comment on above: Order Comment: Speci men Type: BLOOD SPECIMENOrdering Facility: [facility] Address: [address] Performed By: #### 2 4321-2, 2776-, , HFP ####[facility] LABORATORYCLIA [id number] [place] [address] [place] Calcium [Mass/Vol] 9.4 mg/dL Normal 8.5-10.2 [facility] Comment on above: Order Comment: Speci men Type: BLOOD SPECIMENOrdering Facility: [facility] Address: [address] [place] [address] Performed By: #### 2 4321-2, 2776-05, , HFP ####[facility] LABORATORYCLIA [id number] [place] [address] [place] Chloride [Moles/Vol] 98 mmol/L Normal 97-105 [facility] Comment on above: Order Comment: Speci men Type: BLOOD SPECIMENOrdering Facility: [facility] Address: [address] [place] [address] Performed By: #### 2 4321-2, 2776-05, , HFP ####[facility] LABORATORYCLIA [id number] [place] [address] [place] CO2 [Moles/Vol] 29 mmol/L Normal 22-30 [facility] Comment on above: Order Comment: Speci men Type: BLOOD SPECIMENOrdering Facility: [facility] Address: [address] [place], [place] [address] Performed By: #### 2 4321-2, 2776-05, , HFP ####[facility] LABORATORYCLIA [id number] [place] [address] [place] Creatinine [Mass/Vol] 0.67 mg/dL Low 0.73-1.22 [facility] Comment on above: Order Comment: Speci men Type: BLOOD SPECIMENOrdering Facility: [facility] Address: [address] [place], [place] [address] Performed By: #### 2 4321-2, 2776-, , HFP ####[facility] CENTERIA [id number] [place] [address] [facility] ESTIMATED GLOMERULAR FILTRATION RATE 101 mL/min/1.73m??? Normal >=60 [facility] Comment on above: Order Comment: Shira feldman Type: BLOOD SPECIMENOrdering Facility: [facility] Address: [address] [place] [address] Result Comment: Luzmaria mated Glomerular Filtration Rate [...] Performed By: #### 2 4321-2, 2777-, , [facility] ####[facility] [id number] [place] [id number] [facility] Glucose [Mass/Vol] 117 mg/dL High 74-99 [facility] Comment on above: Order Comment: Johncara feldman Type: BLOOD SPECIMENOrdering Facility: [facility] Address: [address] [place] [address] Result Comment: The [place] [employer] Association (ADA) provides guidance for cutoff [...] Standards of Medical Care in Diabetes 2016, [place] [employer]. Diabetes Care. 2016.39(Suppl 1). Performed By: #### 2 4321-2, 2777-, , [facility] ####[facility] CENTERIA [id number] [place] [address] [place] Potassium [Moles/Vol] 4.1 mmol/L Normal 3.7-5.1 [facility] Comment on above: Order Comment: Speci men Type: BLOOD SPECIMENOrdering Facility: [facility] Address: [address] [place] [address] Performed By: #### 2 4321-2, 2777-1, , HFP ####[facility] LABORATORYCLIA [id number] [address] STATES [facility] Sodium [Moles/Vol] 136 mmol/L Normal 136-144 [facility] Comment on above: Order Comment: Speci men Type: BLOOD SPECIMENOrdering Facility: [facility] Address: [address] [place] [address] Performed By: #### 2 4321-2, 2776-, , HFP ####[facility] LABORATORYCLIA [id number] [address] STATES [facility] Urea nitrogen [Mass/Vol] 31 mg/dL High 9-24 [facility] Comment on above: Order Comment: Speci men Type: BLOOD SPECIMENOrdering Facility: [facility] Address: [address] [place] [address] Performed By: #### 2 4321-2, 2776-, , HFP ####[facility] LABORATORYCLIA [id number] [address] STATES OF [facility] CBC W Auto Differential pane l (Bld)on 08-07-2021 Basophils (Bld) [#/Vol] 0.03 10*3/uL Normal <0.11 [facility] Comment on above: Order Comment: Speci men Type: BLOOD SPECIMENOrdering Facility: [facility] Address: [address] [place] [address] Performed By: #### 5 7021-8 ####[facility] LABORATORYCLIA [id number] [address] Basophils/100 WBC (Bld) 0.3 % Normal [facility] Comment on above: Order Comment: Speci men Type: BLOOD SPECIMENOrdering Facility: [facility] Address: [address] [place] [address] Performed By: #### 5 7021-8 ####[facility] LABORATORYCLIA [id number] [address] Differential cell count method Nom (Bld) Auto Normal [facility] Comment on above: Order Comment: Speci men Type: BLOOD SPECIMENOrdering Facility: [facility] Address: [address] [place] [address] Performed By: #### 5 7021-8 ####[facility] LABORATORYCLIA [id number] [address] [place] Eosinophils (Bld) [#/Vol] 0.16 10*3/uL Normal <0.46 [facility] Comment on above: Order Comment: Speci men Type: BLOOD SPECIMENOrdering Facility: [facility] Address: [address] [place] [address] Performed By: #### 5 7021-8 ####[facility] LABORATORYCLIA [id number] [address] Eosinophils/100 WBC (Bld) 1.6 % Normal [facility] Comment on above: Order Comment: Speci men Type: BLOOD SPECIMENOrdering Facility: [facility] Address: [address] [place] [address] Performed By: #### 5 7021-8 ####[facility] LABORATORYCLIA [id number] [address] [place] Erythrocyte distribution width (RBC) [Ratio] 18.1 % High 11.5-15.0 [facility] Comment on above: Order Comment: Speci men Type: BLOOD SPECIMENOrdering Facility: [facility] Address: [address] [place] [address] Performed By: #### 5 7021-8 ####[facility] LABORATORYCLIA [id number] [address] [place] Hematocrit (Bld) [Volume fraction] 30.6 % Low 39.0-51.0 [facility] Comment on above: Order Comment: Speci men Type: BLOOD SPECIMENOrdering Facility: [facility] Address: [address] [place] [address] Performed By: #### 5 7021-8 ####[facility] LABORATORYCLIA [id number] [address] [place] Hemoglobin (Bld) [Mass/Vol] 9.4 g/dL Low 13.0-17.0 [facility] Comment on above: Order Comment: Speci men Type: BLOOD SPECIMENOrdering Facility: [facility] Address: [address] [place] [address] Performed By: #### 5 7021-8 ####[facility]ORATORYCLIA [id number] [address] [place] IMMATURE GRAN % 0.4 % Normal [facility] Comment on above: Order Comment: Speci men Type: BLOOD SPECIMENOrdering Facility: [facility] Address: [address] [place] [address] Performed By: #### 5 7021-8 ####[facility]ORATORYCLIA [id number] [address] IMMATURE GRAN ABS 0.04 k/uL Normal <0.10 [facility] Comment on above: Order Comment: Speci men Type: BLOOD SPECIMENOrdering Facility: [facility] Address: [address] [place] [address] Performed By: #### 5 7021-8 ####[facility]ORATORYCLIA [id number] [address] [place] Lymphocytes (Bld) [#/Vol] 2.05 10*3/uL Normal 1.00-4.00 [facility] Comment on above: Order Comment: Speci men Type: BLOOD SPECIMENOrdering Facility: [facility] Address: [address] [place] [address] Performed By: #### 5 7021-8 ####[facility]ORATORYCLIA [id number] [address] Lymphocytes/100 WBC (Bld) 20.2 % Normal [facility] Comment on above: Order Comment: Speci men Type: BLOOD SPECIMENOrdering Facility: [facility] Address: [address] [place] [address] Performed By: #### 5 7021-8 ####[facility]ORATORYCLIA [id number] [address] MCH (RBC) [Entitic mass] 28.8 pg Normal 26.0-34.0 [facility] Comment on above: Order Comment: Speci men Type: BLOOD SPECIMENOrdering Facility: [facility] Address: [address] [place] [address] Performed By: #### 5 7021-8 ####[facility]ORATORYCLIA [id number] [address] MCHC (RBC) [Mass/Vol] 30.7 g/dL Normal 30.5-36.0 [facility] Comment on above: Order Comment: Speci men Type: BLOOD SPECIMENOrdering Facility: [facility] Address: [address] [place] [address] Performed By: #### 5 7021-8 ####[facility] LABORATORYCLIA [id number] [address] MCV (RBC) [Entitic vol] 93.9 fL Normal 80.0-100.0 [facility] Comment on above: Order Comment: Speci men Type: BLOOD SPECIMENOrdering Facility: [facility] Address: [address] [place] [address] Performed By: #### 5 7021-8 ####[facility]ORATORYCLIA [id number] [address] Monocytes (Bld) [#/Vol] 0.64 10*3/uL Normal <0.87 [facility] Comment on above: Order Comment: Speci men Type: BLOOD SPECIMENOrdering Facility: [facility] Address: [address] [place] [address] Performed By: #### 5 7021-8 ####[facility]ORATORYCLIA [id number] [address] [place] Monocytes/100 WBC (Bld) 6.3 % Normal [facility] Comment on above: Order Comment: Speci men Type: BLOOD SPECIMENOrdering Facility: [facility] Address: [address] [place] [address] Performed By: #### 5 7021-8 ####[facility] LABORATORYCLIA [id number] [place] [address] [place] Neutrophils (Bld) [#/Vol] 7.22 10*3/uL Normal 1.45-7.50 [facility] Comment on above: Order Comment: Speci men Type: BLOOD SPECIMENOrdering Facility: [facility] Address: [address] [place] [address] Performed By: #### 5 7021-8 ####[facility]ORATORYCLIA [id number] [address] [place] Neutrophils/100 WBC (Bld) 71.2 % Normal [facility] Comment on above: Order Comment: Speci men Type: BLOOD SPECIMENOrdering Facility: [facility] Address: [address] [place] [address] Performed By: #### 5 7021-8 ####[facility]ORATORYCLIA [id number] [place] [address] [place] Nucleated RBC (Bld) [#/Vol] 10*3/uL Normal <0.01 [facility] Comment on above: Order Comment: Speci men Type: BLOOD SPECIMENOrdering Facility: [facility] Address: [address] [place] [address] Performed By: #### 5 7021-8 ####[facility]ORATORYCLIA [id number] [place] [address] [place] Nucleated RBC/100 WBC (Bld) [Ratio] 0.0 /100 WBC Normal [facility] Comment on above: Order Comment: Speci men Type: BLOOD SPECIMENOrdering Facility: [facility] Address: [address] [place] [address] Performed By: #### 5 7021-8 ####[facility] LABORATORYCLIA [id number] [address] [place] Platelet mean volume (Bld) [Entitic vol] 9.9 fL Normal 9.0-12.7 [facility] Comment on above: Order Comment: Speci men Type: BLOOD SPECIMENOrdering Facility: [facility] Address: [address] [place], [place] [address] Performed By: #### 5 7021-8 ####[facility]ORATORYCLIA [id number] [address] [place] Platelets (Bld) [#/Vol] 227 10*3/uL Normal 150-400 [facility] Comment on above: Order Comment: Speci men Type: BLOOD SPECIMENOrdering Facility: [facility] Address: [address] [place] [address] Performed By: #### 5 7021-8 ####[facility]ORATORYCLIA [id number] [place] [address] [place] RBC (Bld) [#/Vol] 3.26 10*6/uL Low 4.20-6.00 [facility] Comment on above: Order Comment: Speci men Type: BLOOD SPECIMENOrdering Facility: [facility] Address: [address] [place], [place] [address] Performed By: #### 5 7021-8 ####[facility] LABORATORYCLIA [id number] [address] [place] WBC (Bld) [#/Vol] 10.14 10*3/uL Normal 3.70-11.00 [facility] Comment on above: Order Comment: Speci men Type: BLOOD SPECIMENOrdering Facility: [facility] Address: [address] [place], [place] [address] Performed By: #### 5 7021-8 ####[facility] LABORATORYCLIA [id number] [address] BRAIN WO IVCONon 08-08-19 CT BRAIN WO IVCON Normal [facility] HEPATIC FUNCTION PNLon 08-07 Albumin [Mass/Vol] 3.6 g/dL Low 3.9-4.9 [facility] Comment on above: Order Comment: Speci men Type: BLOOD SPECIMENOrdering Facility: [facility] Address: [address] [place] [address] Performed By: #### 2 4321-2, 2777-1, , HFP ####[facility]ORATORYCLIA [id number] [address] ALP [Catalytic activity/Vol] 124 U/L High 38-113 [facility] Comment on above: Order Comment: Speci men Type: BLOOD SPECIMENOrdering Facility: [facility] Address: [address] [place] [address] Performed By: #### 2 4321-2, 2777-1, , HFP ####[facility]ORATORYCLIA [id number] [address] ALT With P-5'-P [Catalytic activity/Vol] 29 U/L Normal 10-54 [facility] Comment on above: Order Comment: Speci men Type: BLOOD SPECIMENOrdering Facility: [facility] Address: [address] [place] [address] Performed By: #### 2 4321-2, 2777-1, , HFP ####[facility]ORATORYCLIA [id number] [address] AST With P-5'-P [Catalytic activity/Vol] 18 U/L Normal 14-40 [facility] Comment on above: Order Comment: Speci men Type: BLOOD SPECIMENOrdering Facility: [facility] Address: [address] [place] [address] Performed By: #### 2 4321-2, 277-, , HFP ####[facility] LABORATORYCLIA [id number] [place] [id number] [place] Bilirubin [Mass/Vol] 0.3 mg/dL Normal 0.2-1.3 [facility] Comment on above: Order Comment: Speci men Type: BLOOD SPECIMENOrdering Facility: [facility] Address: [address] [place], [place] [address] Performed By: #### 2 4321-2, 2776-05, , HFP ####[facility]ORATORYCLIA [id number] [place] [address] [place] Bilirubin.conjugated [Mass/Vol] mg/dL Normal <0.2 [facility] Comment on above: Order Comment: Speci men Type: BLOOD SPECIMENOrdering Facility: [facility] Address: [address] [place] [address] Performed By: #### 2 4321-2, 2776-05, , HFP ####[facility] LABORATORYCLIA [id number] [place] [address] [place] Protein [Mass/Vol] 6.4 g/dL Normal 6.3-8.0 [facility] Comment on above: Order Comment: Speci men Type: BLOOD SPECIMENOrdering Facility: [facility] Address: [address] [place] [address] Performed By: #### 2 4321-2, 2776-05, , HFP ####[facility]ORATORYCLIA [id number] [place] [address] [place] Magnesium SerPl-mCncon 08-07 Magnesium [Mass/Vol] 2.3 mg/dL Normal 1.7-2.3 [facility] Comment on above: Order Comment: Speci men Type: BLOOD SPECIMENOrdering Facility: [facility] Address: [address] [place] [address] Performed By: #### 2 4321-2, 2776-05, , HFP ####[facility]ORATORYCLIA [id number] [place] [address] [place] NURSING PROGon 08-07-2021 NURSING PROG Normal [facility] Phosphate SerPl-mCncon 08-07 Phosphate [Mass/Vol] 3.5 mg/dL Normal 2.7-4.8 [facility] Comment on above: Order Comment: Speci men Type: BLOOD SPECIMENOrdering Facility: [facility] Address: [address] [place] [address] Performed By: #### 2 4321-2, 2776-05, , [facility] ####[facility]ORATORYCLIA [id number] [address] [place] ANES POSTPROC EVALon 022 ANES POSTPROC EVAL Normal [facility] Basic metabolic 2000 panelon 08-06-2021 Anion gap [Moles/Vol] 11 mmol/L Normal 9-18 [facility] Comment on above: Order Comment: Speci men Type: BLOOD SPECIMENOrdering Facility: [facility] Address: [address] [place] [address] Performed By: #### 2 4321-2, 2776-05, ####[facility]PITALCLIA [id number] [place] [address] [place] Calcium [Mass/Vol] 8.2 mg/dL Low 8.5-10.2 [facility] Comment on above: Order Comment: Speci men Type: BLOOD SPECIMENOrdering Facility: [facility] Address: [address] [place] [address] Performed By: #### 2 4321-2, 2776-05, ####[facility]ORATORYCLIA [id number] [place] [address] [place] Chloride [Moles/Vol] 100 mmol/L Normal 97-105 [facility] Comment on above: Order Comment: Speci men Type: BLOOD SPECIMENOrdering Facility: [facility] Address: [address] [place], [place] [address] Performed By: #### 2 4321-2, 2776-05, ####[facility]PITALCLIA [id number] [place] [address] [place] [facility] CO2 [Moles/Vol] 23 mmol/L Normal 22-30 [facility] Comment on above: Order Comment: Speci men Type: BLOOD SPECIMENOrdering Facility: [facility] Address: [address] [place] [address] Performed By: #### 2 4321-2, 2776-05, ####[facility]PITALCLIA [id number] [place] [id number] [place] [facility] Creatinine [Mass/Vol] 0.55 mg/dL Low 0.73-1.22 [facility] Comment on above: Order Comment: Speci men Type: BLOOD SPECIMENOrdering Facility: [facility] Address: [address] [place] [address] Performed By: #### 2 4321-2, 2776-05, ####[facility]ITALCLIA [id number] [address] ESTIMATED GLOMERULAR FILTRATION RATE 107 mL/min/1.73m??? Normal >=60 [facility] Comment on above: Order Comment: Speci men Type: BLOOD SPECIMENOrdering Facility: [facility] Address: [address] [place] [address] Result Comment: Luzmaria mated Glomerular Filtration Rate [...] GFR. Performed By: #### 2 4321-2, 27711-04, ####[facility]ORATORYCLIA [id number] [place] [id number] [place] Glucose [Mass/Vol] 275 mg/dL High 74-99 [facility] Comment on above: Order Comment: Shira feldman Type: BLOOD SPECIMENOrdering Facility: [facility] Address: [address] [place], [place] [address] Result Comment: The [place] Diabetes Association (ADA) provides guidance for cutoff [...] Standards of Medical Care in Diabetes 2016, [place] [employer]. Diabetes Care. 2016.39(Suppl 1). Performed By: #### 2 4321-2, 2776-05, ####[facility]ORATORYCLIA [id number] [place] [address] [place] Potassium [Moles/Vol] 3.6 mmol/L Low 3.7-5.1 [facility] Comment on above: Order Comment: Shira feldman Type: BLOOD SPECIMENOrdering Facility: [facility] Address: [address] [place], [place] [address] Performed By: #### 2 4321-2, 27711-04, ####[facility]ORATORYCLIA [id number] [place] [address] [place] Sodium [Moles/Vol] 134 mmol/L Low 136-144 [facility] Comment on above: Order Comment: Shira feldman Type: BLOOD SPECIMENOrdering Facility: [facility] Address: [address] [place], [place] [id number] Performed By: #### 2 4321-2, 2776-05, ####[facility]ORATORYCLIA [id number] [place] [address] [place] Urea nitrogen [Mass/Vol] 29 mg/dL High 9-24 [facility] Comment on above: Order Comment: Speci men Type: BLOOD SPECIMENOrdering Facility: [facility] Address: [address] [place] [address] Performed By: #### 2 4321-2, 2777-1, 19863-8 ####[facility]ORATORYCLIA [id number] [place] [address] [place] CBC W Auto Differential pane l (Bld)on 08-06-2021 Basophils (Bld) [#/Vol] 0.03 10*3/uL Normal <0.11 [facility] Comment on above: Order Comment: Speci men Type: BLOOD SPECIMENOrdering Facility: [facility] Address: [address] [place] [address] Performed By: #### 5 7021-8 ####[facility]ORATORYCLIA [id number] [place] [address] [place] Basophils/100 WBC (Bld) 0.3 % Normal [facility] Comment on above: Order Comment: Speci men Type: BLOOD SPECIMENOrdering Facility: [facility] Address: [address] [place] [address] Performed By: #### 5 7021-8 ####[facility]ORATORYCLIA [id number] [address] [place] [facility] Differential cell count method Nom (Bld) Auto Normal [facility] Comment on above: Order Comment: Speci men Type: BLOOD SPECIMENOrdering Facility: [facility] Address: [address] [place] [address] Performed By: #### 5 7021-8 ####[facility]ORATORYCLIA [id number] [place] [address] [place] Eosinophils (Bld) [#/Vol] 0.18 10*3/uL Normal <0.46 [facility] Comment on above: Order Comment: Speci men Type: BLOOD SPECIMENOrdering Facility: [facility] Address: [address] [place] [address] Performed By: #### 5 7021-8 ####[facility]ORYCLIA [id number] [address] [place] [facility] Eosinophils/100 WBC (Bld) 1.6 % Normal [facility] Comment on above: Order Comment: Speci men Type: BLOOD SPECIMENOrdering Facility: [facility] Address: [address] [place] [address] Performed By: #### 5 7021-8 ####[facility]ORATORYCLIA [id number] [address] Erythrocyte distribution width (RBC) [Ratio] 17.9 % High 11.5-15.0 [facility] Comment on above: Order Comment: Speci men Type: BLOOD SPECIMENOrdering Facility: [facility] Address: [address] [place] [address] Performed By: #### 5 7021-8 ####[facility]ORATORYCLIA [id number] [address] Hematocrit (Bld) [Volume fraction] 27.6 % Low 39.0-51.0 [facility] Comment on above: Order Comment: Speci men Type: BLOOD SPECIMENOrdering Facility: [facility] Address: [address] [place] [address] Performed By: #### 5 7021-8 ####[facility]ORATORYCLIA [id number] [address] [place] Hemoglobin (Bld) [Mass/Vol] 8.5 g/dL Low 13.0-17.0 [facility] Comment on above: Order Comment: Speci men Type: BLOOD SPECIMENOrdering Facility: [facility] Address: [address] [place] [address] Performed By: #### 5 7021-8 ####[facility]ORYCLIA [id number] [address] [place] IMMATURE GRAN % 0.6 % Normal [facility] Comment on above: Order Comment: Speci men Type: BLOOD SPECIMENOrdering Facility: [facility] Address: [address] [place] [address] Performed By: #### 5 7021-8 ####[facility]ORATORYCLIA [id number] [address] IMMATURE GRAN ABS 0.07 k/uL Normal <0.10 [facility] Comment on above: Order Comment: Speci men Type: BLOOD SPECIMENOrdering Facility: [facility] Address: [address] [place] [address] Performed By: #### 5 7021-8 ####[facility] LABORATORYCLIA [id number] [address] Lymphocytes (Bld) [#/Vol] 1.81 10*3/uL Normal 1.00-4.00 [facility] Comment on above: Order Comment: Speci men Type: BLOOD SPECIMENOrdering Facility: [facility] Address: [address] [place] [address] Performed By: #### 5 7021-8 ####[facility]ORATORYCLIA [id number] [address] Lymphocytes/100 WBC (Bld) 15.7 % Normal [facility] Comment on above: Order Comment: Speci men Type: BLOOD SPECIMENOrdering Facility: [facility] Address: [address] [place] [address] Performed By: #### 5 7021-8 ####[facility]ORATORYCLIA [id number] [address] [place] [facility] MCH (RBC) [Entitic mass] 28.6 pg Normal 26.0-34.0 [facility] Comment on above: Order Comment: Speci men Type: BLOOD SPECIMENOrdering Facility: [facility] Address: [address] [place] [address] Performed By: #### 5 7021-8 ####[facility]ORATORYCLIA [id number] [address] MCHC (RBC) [Mass/Vol] 30.8 g/dL Normal 30.5-36.0 [facility] Comment on above: Order Comment: Speci men Type: BLOOD SPECIMENOrdering Facility: [facility] Address: [address] [place] [address] Performed By: #### 5 7021-8 ####[facility]ORATORYCLIA [id number] [address] [place] MCV (RBC) [Entitic vol] 92.9 fL Normal 80.0-100.0 [facility] Comment on above: Order Comment: Speci men Type: BLOOD SPECIMENOrdering Facility: [facility] Address: [address] [place] [address] Performed By: #### 5 7021-8 ####[facility]ORATORYCLIA [id number] [address] [place] Monocytes (Bld) [#/Vol] 0.63 10*3/uL Normal <0.87 [facility] Comment on above: Order Comment: Speci men Type: BLOOD SPECIMENOrdering Facility: [facility] Address: [address] [place] [address] Performed By: #### 5 7021-8 ####[facility]ORATORYCLIA [id number] [address] Monocytes/100 WBC (Bld) 5.5 % Normal [facility] Comment on above: Order Comment: Speci men Type: BLOOD SPECIMENOrdering Facility: [facility] Address: [address] [place] [address] Performed By: #### 5 7021-8 ####[facility] LABORATORYCLIA [id number] [address] [place] Neutrophils (Bld) [#/Vol] 8.78 10*3/uL High 1.45-7.50 [facility] Comment on above: Order Comment: Speci men Type: BLOOD SPECIMENOrdering Facility: [facility] Address: [address] [place] [address] Performed By: #### 5 7021-8 ####[facility]ORATORYCLIA [id number] [address] [place] Neutrophils/100 WBC (Bld) 76.3 % Normal [facility] Comment on above: Order Comment: Speci men Type: BLOOD SPECIMENOrdering Facility: [facility] Address: [address] [place] [address] Performed By: #### 5 7021-8 ####[facility]ATORYCLIA [id number] [address] [place] Nucleated RBC (Bld) [#/Vol] 10*3/uL Normal <0.01 [facility] Comment on above: Order Comment: Speci men Type: BLOOD SPECIMENOrdering Facility: [facility] Address: [address] [place] [address] Performed By: #### 5 7021-8 ####[facility]ORATORYCLIA [id number] [address] Nucleated RBC/100 WBC (Bld) [Ratio] 0.0 /100 WBC Normal [facility] Comment on above: Order Comment: Speci men Type: BLOOD SPECIMENOrdering Facility: [facility] Address: [address] [place] [address] Performed By: #### 5 7021-8 ####[facility]ATORYCLIA [id number] [address] [place] Platelet mean volume (Bld) [Entitic vol] 9.9 fL Normal 9.0-12.7 [facility] Comment on above: Order Comment: Speci men Type: BLOOD SPECIMENOrdering Facility: [facility] Address: [address] [place] [address] Performed By: #### 5 7021-8 ####[facility] LABORATORYCLIA [id number] [address] [place] Platelets (Bld) [#/Vol] 230 10*3/uL Normal 150-400 [facility] Comment on above: Order Comment: Speci men Type: BLOOD SPECIMENOrdering Facility: [facility] Address: [address] [place] [address] Performed By: #### 5 7021-8 ####[facility] LABORATORYCLIA [id number] [address] RBC (Bld) [#/Vol] 2.97 10*6/uL Low 4.20-6.00 [facility] Comment on above: Order Comment: Speci men Type: BLOOD SPECIMENOrdering Facility: [facility] Address: [address] [place] [address] Performed By: #### 5 7021-8 ####[facility] LABORATORYCLIA [id number] [address] WBC (Bld) [#/Vol] 11.50 10*3/uL High 3.70-11.00 [facility] Comment on above: Order Comment: Speci men Type: BLOOD SPECIMENOrdering Facility: [facility] Address: [address] [place] [address] Performed By: #### 5 7021-8 ####[facility] LABORATORYCLIA [id number] [address] CONSULT PROGon 08-06-2021 CONSULT PROG Normal [facility] Magnesium SerPl-mCncon 08-06 Magnesium [Mass/Vol] 1.9 mg/dL Normal 1.7-2.3 [facility] Comment on above: Order Comment: Speci men Type: BLOOD SPECIMENOrdering Facility: [facility] Address: [address] [place] [address] Performed By: #### 2 4321-2, 2777-1, 75277-4 ####[facility] LABORATORYCLIA [id number] [address] NURSING PROGon 08-06-2021 NURSING PROG Normal [facility] OPERATIVE NOon 08-06-2021 OPERATIVE NO Normal [facility] Phosphate SerPl-mCncon 08-06 Phosphate [Mass/Vol] 4.2 mg/dL Normal 2.7-4.8 [facility] Comment on above: Order Comment: Speci men Type: BLOOD SPECIMENOrdering Facility: [facility] Address: [address] [place], [place] [address] Performed By: #### 2 4321-2, 2777-1, 56547-1 ####[facility] LABORATORYCLIA [id number] [place] [address] [place] ALLIED HEALTHon 08-05-2021 [...] 2355-0 ####[facility] LABORATORYCLIA [id number] [place] [address] [place] Bacteria Ur Culton Bacteria identified Cx Nom (U) CULTURE, URINE: No growth (<1,000 CFU/ml) Normal [facility] Comment on above: Performed By: #### 6 30-4 ####[facility] LABORATORYCLIA [id number] [place] [address] [place] Basic metabolic 2000 panelon 08-05-2021 Anion gap [Moles/Vol] 7 mmol/L Low 9-18 [facility] Comment on above: Order Comment: Speci men Type: BLOOD SPECIMENOrdering Facility: [facility] Address: [address] [place] [address] Performed By: #### 2 4321-2 ####[facility] LABORATORYCLIA [id number] [place] [address] [place] Calcium [Mass/Vol] 9.5 mg/dL Normal 8.5-10.2 [facility] Comment on above: Order Comment: Speci men Type: BLOOD SPECIMENOrdering Facility: [facility] Address: [address] [address] Performed By: #### 2 4321-2 ####[facility] LABORATORYCLIA [id number] [address] [place] Chloride [Moles/Vol] 97 mmol/L Normal 97-105 [facility] Comment on above: Order Comment: Speci men Type: BLOOD SPECIMENOrdering Facility: [facility] Address: [address] [place] [address] Performed By: #### 2 4321-2 ####[facility] LABORATORYCLIA [id number] [address] [place] CO2 [Moles/Vol] 30 mmol/L Normal 22-30 [facility] Comment on above: Order Comment: Speci men Type: BLOOD SPECIMENOrdering Facility: [facility] Address: [address] [place] [address] Performed By: #### 2 4321-2 ####[facility] LABORATORYCLIA [id number] [address] [place] Creatinine [Mass/Vol] 0.61 mg/dL Low 0.73-1.22 [facility] Comment on above: Order Comment: Speci men Type: BLOOD SPECIMENOrdering Facility: [facility] Address: [address] [place] [address] Performed By: #### 2 4321-2 ####[facility] LABORATORYCLIA [id number] [address] ESTIMATED GLOMERULAR FILTRATION RATE 104 mL/min/1.73m??? Normal >=60 [facility] Comment on above: Order Comment: Speci men Type: BLOOD SPECIMENOrdering Facility: [facility] Address: [address] [place] [address] Result Comment: Luzmaria mated Glomerular Filtration Rate [...] 4321-2 ####[facility] LABORATORYCLIA [id number] [place] [address] [place] Glucose [Mass/Vol] 124 mg/dL High 74-99 [facility] Comment on above: Order Comment: Shira feldman Type: BLOOD SPECIMENOrdering Facility: [facility] Address: [address] [place], [place] [address] Result Comment: The [place] Diabetes Association (ADA) provides guidance for cutoff [...] Standards of Medical Care in Diabetes 2016, [place] Diabetes [employer]. Diabetes Care. 2016.39(Suppl 1). Performed By: #### 2 4321-2 ####[facility] LABORATORYCLIA [id number] [place] [address] [place] Potassium [Moles/Vol] 4.9 mmol/L Normal 3.7-5.1 [facility] Comment on above: Order Comment: Shira feldman Type: BLOOD SPECIMENOrdering Facility: [facility] Address: [address] [place] [address] Performed By: #### 2 4321-2 ####[facility] LABORATORYCLIA [id number] [place] [address] [place] Sodium [Moles/Vol] 134 mmol/L Low 136-144 [facility] Comment on above: Order Comment: Shira feldman Type: BLOOD SPECIMENOrdering Facility: [facility] Address: [address] [place] [address] Performed By: #### 2 4321-2 ####[facility] LABORATORYCLIA [id number] [address] STATES [facility] Urea nitrogen [Mass/Vol] 40 mg/dL High 9-24 [facility] Comment on above: Order Comment: Speci men Type: BLOOD SPECIMENOrdering Facility: [facility] Address: [address] [place] [address] Performed By: #### 2 4321-2 ####[facility] LABORATORYCLIA [id number] [place] [address] [place] CBC W Auto Differential pane l (Bld)on 08-05-2021 Basophils (Bld) [#/Vol] 0.04 10*3/uL Normal <0.11 [facility] Comment on above: Order Comment: Speci men Type: BLOOD SPECIMENOrdering Facility: [facility] Address: [address] [place] [address] Performed By: #### 5 7021-8 ####[facility] LABORATORYCLIA [id number] [address] [place] Basophils/100 WBC (Bld) 0.3 % Normal [facility] Comment on above: Order Comment: Speci men Type: BLOOD SPECIMENOrdering Facility: [facility] Address: [address] [place] [address] Performed By: #### 5 7021-8 ####[facility] LABORATORYCLIA [id number] [address] STATES [facility] Differential cell count method Nom (Bld) Auto Normal [facility] Comment on above: Order Comment: Speci men Type: BLOOD SPECIMENOrdering Facility: [facility] Address: [address] [place] [address] Performed By: #### 5 7021-8 ####[facility] LABORATORYCLIA [id number] [place] [address] [place] Eosinophils (Bld) [#/Vol] 0.42 10*3/uL Normal <0.46 [facility] Comment on above: Order Comment: Speci men Type: BLOOD SPECIMENOrdering Facility: [facility] Address: [address] [place] [address] Performed By: #### 5 7021-8 ####[facility] LABORATORYCLIA [id number] [address] Eosinophils/100 WBC (Bld) 3.6 % Normal [facility] Comment on above: Order Comment: Speci men Type: BLOOD SPECIMENOrdering Facility: [facility] Address: [address] [place] [address] Performed By: #### 5 7021-8 ####[facility] LABORATORYCLIA [id number] [address] [place] Erythrocyte distribution width (RBC) [Ratio] 17.9 % High 11.5-15.0 [facility] Comment on above: Order Comment: Speci men Type: BLOOD SPECIMENOrdering Facility: [facility] Address: [address] [place] [address] Performed By: #### 5 7021-8 ####[facility] LABORATORYCLIA [id number] [address] [place] Hematocrit (Bld) [Volume fraction] 30.8 % Low 39.0-51.0 [facility] Comment on above: Order Comment: Speci men Type: BLOOD SPECIMENOrdering Facility: [facility] Address: [address] [place] [address] Performed By: #### 5 7021-8 ####[facility] LABORATORYCLIA [id number] [address] [place] Hemoglobin (Bld) [Mass/Vol] 9.6 g/dL Low 13.0-17.0 [facility] Comment on above: Order Comment: Speci men Type: BLOOD SPECIMENOrdering Facility: [facility] Address: [address] [place] [address] Performed By: #### 5 7021-8 ####[facility] LABORATORYCLIA [id number] [address] IMMATURE GRAN % 0.5 % Normal [facility] Comment on above: Order Comment: Speci men Type: BLOOD SPECIMENOrdering Facility: [facility] Address: [address] [place] [address] Performed By: #### 5 7021-8 ####[facility] LABORATORYCLIA [id number] [address] IMMATURE GRAN ABS 0.06 k/uL Normal <0.10 [facility] Comment on above: Order Comment: Speci men Type: BLOOD SPECIMENOrdering Facility: [facility] Address: [address] [place] [address] Performed By: #### 5 7021-8 ####[facility] LABORATORYCLIA [id number] [address] [place] Lymphocytes (Bld) [#/Vol] 2.17 10*3/uL Normal 1.00-4.00 [facility] Comment on above: Order Comment: Speci men Type: BLOOD SPECIMENOrdering Facility: [facility] Address: [address] [place] [address] Performed By: #### 5 7021-8 ####[facility] LABORATORYCLIA [id number] [address] Lymphocytes/100 WBC (Bld) 18.7 % Normal [facility] Comment on above: Order Comment: Speci men Type: BLOOD SPECIMENOrdering Facility: [facility] Address: [address] [place] [address] Performed By: #### 5 7021-8 ####[facility] LABORATORYCLIA [id number] [address] [place] MCH (RBC) [Entitic mass] 28.9 pg Normal 26.0-34.0 [facility] Comment on above: Order Comment: Speci men Type: BLOOD SPECIMENOrdering Facility: [facility] Address: [address] [place] [address] Performed By: #### 5 7021-8 ####[facility] LABORATORYCLIA [id number] [address] STATES [facility] MCHC (RBC) [Mass/Vol] 31.2 g/dL Normal 30.5-36.0 [facility] Comment on above: Order Comment: Speci men Type: BLOOD SPECIMENOrdering Facility: [facility] Address: [address] [place] [address] Performed By: #### 5 7021-8 ####[facility] LABORATORYCLIA [id number] [address] MCV (RBC) [Entitic vol] 92.8 fL Normal 80.0-100.0 [facility] Comment on above: Order Comment: Speci men Type: BLOOD SPECIMENOrdering Facility: [facility] Address: [address] [place] [address] Performed By: #### 5 7021-8 ####[facility] LABORATORYCLIA [id number] [address] STATES OF [facility] Monocytes (Bld) [#/Vol] 0.71 10*3/uL Normal <0.87 [facility] Comment on above: Order Comment: Speci men Type: BLOOD SPECIMENOrdering Facility: [facility] Address: [address] [place] [address] Performed By: #### 5 7021-8 ####[facility] LABORATORYCLIA [id number] [address] Monocytes/100 WBC (Bld) 6.1 % Normal [facility] Comment on above: Order Comment: Speci men Type: BLOOD SPECIMENOrdering Facility: [facility] Address: [address] [place] [address] Performed By: #### 5 7021-8 ####[facility] LABORATORYCLIA [id number] [address] [place] Neutrophils (Bld) [#/Vol] 8.19 10*3/uL High 1.45-7.50 [facility] Comment on above: Order Comment: Speci men Type: BLOOD SPECIMENOrdering Facility: [facility] Address: [address] [address] Performed By: #### 5 7021-8 ####[facility] LABORATORYCLIA [id number] [address] Neutrophils/100 WBC (Bld) 70.8 % Normal [facility] Comment on above: Order Comment: Speci men Type: BLOOD SPECIMENOrdering Facility: [facility] Address: [address] [place] [address] Performed By: #### 5 7021-8 ####[facility] LABORATORYCLIA [id number] [address] Nucleated RBC (Bld) [#/Vol] 10*3/uL Normal <0.01 [facility] Comment on above: Order Comment: Speci men Type: BLOOD SPECIMENOrdering Facility: [facility] Address: [address] [place] [address] Performed By: #### 5 7021-8 ####[facility] LABORATORYCLIA [id number] [address] Nucleated RBC/100 WBC (Bld) [Ratio] 0.0 /100 WBC Normal [facility] Comment on above: Order Comment: Speci men Type: BLOOD SPECIMENOrdering Facility: [facility] Address: [address] [place] [address] Performed By: #### 5 7021-8 ####[facility] LABORATORYCLIA [id number] [address] Platelet mean volume (Bld) [Entitic vol] 9.6 fL Normal 9.0-12.7 [facility] Comment on above: Order Comment: Speci men Type: BLOOD SPECIMENOrdering Facility: [facility] Address: [address] [place] [address] Performed By: #### 5 7021-8 ####[facility] LABORATORYCLIA [id number] [address] Platelets (Bld) [#/Vol] 339 10*3/uL Normal 150-400 [facility] Comment on above: Order Comment: Speci men Type: BLOOD SPECIMENOrdering Facility: [facility] Address: [address] [place] [address] Performed By: #### 5 7021-8 ####[facility] LABORATORYCLIA [id number] [place] [address] [place] RBC (Bld) [#/Vol] 3.32 10*6/uL Low 4.20-6.00 [facility] Comment on above: Order Comment: Speci men Type: BLOOD SPECIMENOrdering Facility: [facility] Address: [address] [place] [address] Performed By: #### 5 7021-8 ####[facility] LABORATORYCLIA [id number] [address] WBC (Bld) [#/Vol] 11.59 10*3/uL High 3.70-11.00 [facility] Comment on above: Order Comment: Speci men Type: BLOOD SPECIMENOrdering Facility: [facility] Address: [address] [place] [address] Performed By: #### 5 7021-8 ####[facility] LABORATORYCLIA [id number] [address] [place] BRAIN WO IVCONon 08-06-[address] BRAIN WO IVCON Normal [facility] Magnesium SerPl-mCncon 08-05 Magnesium [Mass/Vol] 2.2 mg/dL Normal 1.7-2.3 [facility] Comment on above: Order Comment: Speci men Type: BLOOD SPECIMENOrdering Facility: [facility] Address: [address] [place] [address] Performed By: #### 1 9123-9, 2777-1 ####[facility] LABORATORYCLIA [id number] [address] [place] NURSING PROGon 08-05-2021 NURSING PROG Normal [facility] NURSING PROG Normal [facility] NUTRITIONon 08-05-2021 NUTRITION Normal [facility] OPERATIVE NOon 08-05-2021 OPERATIVE NO Normal [facility] Phosphate SerPl-mCncon 08-05 Phosphate [Mass/Vol] 4.6 mg/dL Normal 2.7-4.8 [facility] Comment on above: Order Comment: Speci men Type: BLOOD SPECIMENOrdering Facility: [facility] Address: [address] [place] [address] Performed By: #### 1 9123-9, 2777-1 ####[facility] LABORATORYCLIA [id number] [address] THERAPY NTon 08-05-2021 THERAPY NT Normal [facility] THERAPY NT Normal [facility] Urinalysis complete panel (U )on 08-05-2021 Bilirubin Ql (U) Negative Normal Negative [facility] Comment on above: Order Comment: Speci men Type: URINE SPECIMENOrdering Facility: [facility] Address: [address] [place] [address] Performed By: #### 2 4356-8 ####[facility] LABORATORYCLIA [id number] [address] [place] Clarity (Unsp spec) Clear Normal Clear [facility] Comment on above: Order Comment: Speci men Type: URINE SPECIMENOrdering Facility: [facility] Address: [address] [place] [address] Performed By: #### 2 4356-8 ####[facility] LABORATORYCLIA [id number] [address] [place] Color (U) Light Yellow Normal yellow [facility] Comment on above: Order Comment: Speci men Type: URINE SPECIMENOrdering Facility: [facility] Address: [address] [place] [address] Performed By: #### 2 4356-8 ####[facility] LABORATORYCLIA [id number] [address] [place] Epithelial cells LM.HPF (Urine sed) [#/Area] Few Abnormal None Seen [facility] Comment on above: Order Comment: Speci men Type: URINE SPECIMENOrdering Facility: [facility] Address: [address] [place] [address] Performed By: #### 2 4356-8 ####[facility] LABORATORYCLIA [id number] [address] Glucose Test strip (U) [Mass/Vol] Negative Normal Negative [facility] Comment on above: Order Comment: Speci men Type: URINE SPECIMENOrdering Facility: [facility] Address: [address] [place] [address] Performed By: #### 2 4356-8 ####[facility] LABORATORYCLIA [id number] [address] Hemoglobin Ql (U) Negative Normal Negative [facility] Comment on above: Order Comment: Speci men Type: URINE SPECIMENOrdering Facility: [facility] Address: [address] [place] [address] Performed By: #### 2 4356-8 ####[facility] LABORATORYCLIA [id number] [address] Hyaline casts (Urine sed) [#/Area] 1-3 /LPF Abnormal 0 /LPF [facility] Comment on above: Order Comment: Speci men Type: URINE SPECIMENOrdering Facility: [facility] Address: [address] [place] [address] Performed By: #### 2 4356-8 ####[facility] LABORATORYCLIA [id number] [address] Ketones Ql (U) Negative Normal Negative [facility] Comment on above: Order Comment: Speci men Type: URINE SPECIMENOrdering Facility: [facility] Address: [address] [place] [address] Performed By: #### 2 4356-8 ####[facility] LABORATORYCLIA [id number] [place] [address] Leukocyte esterase Test strip Ql (U) Negative Normal Negative [facility] Comment on above: Order Comment: Speci men Type: URINE SPECIMENOrdering Facility: [facility] Address: [address] [place] [address] Performed By: #### 2 4356-8 ####[facility] LABORATORYCLIA [id number] [address] STATES [facility] Nitrite Ql (U) Negative Normal Negative [facility] Comment on above: Order Comment: Speci men Type: URINE SPECIMENOrdering Facility: [facility] Address: [address] [place] [address] Performed By: #### 2 4356-8 ####[facility] LABORATORYCLIA [id number] [address] STATES [facility] pH (U) 6.0 [pH] Normal 5.0-8.0 [facility] Comment on above: Order Comment: Speci men Type: URINE SPECIMENOrdering Facility: [facility] Address: [address] [place] [address] Performed By: #### 2 4356-8 ####[facility] LABORATORYCLIA [id number] [address] Protein (U) [Mass/Vol] Negative Normal Negative [facility] Comment on above: Order Comment: Speci men Type: URINE SPECIMENOrdering Facility: [facility] Address: [address] [place] [address] Performed By: #### 2 4356-8 ####[facility] LABORATORYCLIA [id number] [address] RBC LM.HPF (Urine sed) [#/Area] 0-3 /HPF Normal 0-3 /HPF [facility] Comment on above: Order Comment: Speci men Type: URINE SPECIMENOrdering Facility: [facility] Address: [address] [place] [address] Performed By: #### 2 4356-8 ####[facility] LABORATORYCLIA [id number] [address] [place] Specific gravity (U) [Rel density] 1.015 Normal 1.005-1.030 [facility] Comment on above: Order Comment: Speci men Type: URINE SPECIMENOrdering Facility: [facility] Address: [address] [place] [address] Performed By: #### 2 4356-8 ####[facility] LABORATORYCLIA [id number] [address] [place] Urobilinogen Ql (U) Normal Normal Negative [facility] Comment on above: Order Comment: Speci men Type: URINE SPECIMENOrdering Facility: [facility] Address: [address] [place] [address] Performed By: #### 2 4356-8 ####[facility] LABORATORYCLIA [id number] [address] [place] WBC LM.HPF (Urine sed) [#/Area] 0-5 /HPF Normal 0-5 /HPF [facility] Comment on above: Order Comment: Speci men Type: URINE SPECIMENOrdering Facility: [facility] Address: [address] [place] [address] Performed By: #### 2 4356-8 ####[facility] LABORATORYCLIA [id number] [address] [place] XR ABDOMEN 1V SUPINEon [...] on above: Performed By: #### 6 00-7 ####[facility] LABORATORYCLIA [id number] [address] Bacteria identified Cx Nom (Bld) CULTURE, BLOOD: No growth 5 days Normal [facility] Comment on above: Performed By: #### 6 00-7 ####[facility] LABORATORYCLIA [id number] [address] OF [facility] CBC W Auto Differential pane l (Bld)on 08-04-2021 Basophils (Bld) [#/Vol] 0.05 10*3/uL Normal <0.11 [facility] Comment on above: Order Comment: Speci men Type: BLOOD SPECIMENOrdering Facility: [facility] Address: [address] [place] [address] Performed By: #### 5 7021-8 ####[facility] LABORATORYCLIA [id number] [address] Basophils/100 WBC (Bld) 0.4 % Normal [facility] Comment on above: Order Comment: Speci men Type: BLOOD SPECIMENOrdering Facility: [facility] Address: [address] [place] [address] Performed By: #### 5 7021-8 ####[facility] LABORATORYCLIA [id number] [address] Differential cell count method Nom (Bld) Auto Normal [facility] Comment on above: Order Comment: Speci men Type: BLOOD SPECIMENOrdering Facility: [facility] Address: [address] [place] [address] Performed By: #### 5 7021-8 ####[facility] LABORATORYCLIA [id number] [address] OF [facility] Eosinophils (Bld) [#/Vol] 0.21 10*3/uL Normal <0.46 [facility] Comment on above: Order Comment: Speci men Type: BLOOD SPECIMENOrdering Facility: [facility] Address: [address] [place] [address] Performed By: #### 5 7021-8 ####[facility] LABORATORYCLIA [id number] [address] STATES [facility] Eosinophils/100 WBC (Bld) 1.7 % Normal [facility] Comment on above: Order Comment: Speci men Type: BLOOD SPECIMENOrdering Facility: [facility] Address: [address] [place] [address] Performed By: #### 5 7021-8 ####[facility] LABORATORYCLIA [id number] [address] [place] Erythrocyte distribution width (RBC) [Ratio] 18.1 % High 11.5-15.0 [facility] Comment on above: Order Comment: Speci men Type: BLOOD SPECIMENOrdering Facility: [facility] Address: [address] [place] [address] Performed By: #### 5 7021-8 ####[facility] LABORATORYCLIA [id number] [address] Hematocrit (Bld) [Volume fraction] 32.0 % Low 39.0-51.0 [facility] Comment on above: Order Comment: Speci men Type: BLOOD SPECIMENOrdering Facility: [facility] Address: [address] [place] [address] Performed By: #### 5 7021-8 ####[facility] LABORATORYCLIA [id number] [address] [place] Hemoglobin (Bld) [Mass/Vol] 10.0 g/dL Low 13.0-17.0 [facility] Comment on above: Order Comment: Speci men Type: BLOOD SPECIMENOrdering Facility: [facility] Address: [address] [place] [address] Performed By: #### 5 7021-8 ####[facility] LABORATORYCLIA [id number] [address] OF [place] IMMATURE GRAN % 0.6 % Normal [facility] Comment on above: Order Comment: Speci men Type: BLOOD SPECIMENOrdering Facility: [facility] Address: [address] [place] [address] Performed By: #### 5 7021-8 ####[facility] LABORATORYCLIA [id number] [address] IMMATURE GRAN ABS 0.08 k/uL Normal <0.10 [facility] Comment on above: Order Comment: Speci men Type: BLOOD SPECIMENOrdering Facility: [facility] Address: [address] [place] [address] Performed By: #### 5 7021-8 ####[facility] LABORATORYCLIA [id number] [address] Lymphocytes (Bld) [#/Vol] 2.55 10*3/uL Normal 1.00-4.00 [facility] Comment on above: Order Comment: Speci men Type: BLOOD SPECIMENOrdering Facility: [facility] Address: [address] [place] [address] Performed By: #### 5 7021-8 ####[facility] LABORATORYCLIA [id number] [address] Lymphocytes/100 WBC (Bld) 20.5 % Normal [facility] Comment on above: Order Comment: Speci men Type: BLOOD SPECIMENOrdering Facility: [facility] Address: [address] [place] [address] Performed By: #### 5 7021-8 ####[facility] LABORATORYCLIA [id number] [address] MCH (RBC) [Entitic mass] 28.9 pg Normal 26.0-34.0 [facility] Comment on above: Order Comment: Speci men Type: BLOOD SPECIMENOrdering Facility: [facility] Address: [address] [place] [address] Performed By: #### 5 7021-8 ####[facility] LABORATORYCLIA [id number] [address] MCHC (RBC) [Mass/Vol] 31.3 g/dL Normal 30.5-36.0 [facility] Comment on above: Order Comment: Speci men Type: BLOOD SPECIMENOrdering Facility: [facility] Address: [address] [place] [address] Performed By: #### 5 7021-8 ####[facility] LABORATORYCLIA [id number] [address] [place] MCV (RBC) [Entitic vol] 92.5 fL Normal 80.0-100.0 [facility] Comment on above: Order Comment: Speci men Type: BLOOD SPECIMENOrdering Facility: [facility] Address: [address] [place] [address] Performed By: #### 5 7021-8 ####[facility] LABORATORYCLIA [id number] [address] [place] Monocytes (Bld) [#/Vol] 0.85 10*3/uL Normal <0.87 [facility] Comment on above: Order Comment: Speci men Type: BLOOD SPECIMENOrdering Facility: [facility] Address: [address] [place] [address] Performed By: #### 5 7021-8 ####[facility] LABORATORYCLIA [id number] [address] OF [facility] Monocytes/100 WBC (Bld) 6.8 % Normal [facility] Comment on above: Order Comment: Speci men Type: BLOOD SPECIMENOrdering Facility: [facility] Address: [address] [place] [address] Performed By: #### 5 7021-8 ####[facility] LABORATORYCLIA [id number] [address] [place] Neutrophils (Bld) [#/Vol] 8.68 10*3/uL High 1.45-7.50 [facility] Comment on above: Order Comment: Speci men Type: BLOOD SPECIMENOrdering Facility: [facility] Address: [address] [place] [address] Performed By: #### 5 7021-8 ####[facility]ORATORYCLIA [id number] [address] Neutrophils/100 WBC (Bld) 70.0 % Normal [facility] Comment on above: Order Comment: Speci men Type: BLOOD SPECIMENOrdering Facility: [facility] Address: [address] [place] [address] Performed By: #### 5 7021-8 ####[facility]ORATORYCLIA [id number] [address] Nucleated RBC (Bld) [#/Vol] 10*3/uL Normal <0.01 [facility] Comment on above: Order Comment: Speci men Type: BLOOD SPECIMENOrdering Facility: [facility] Address: [address] [place] [address] Performed By: #### 5 7021-8 ####[facility] LABORATORYCLIA [id number] [address] STATES [facility] Nucleated RBC/100 WBC (Bld) [Ratio] 0.0 /100 WBC Normal [facility] Comment on above: Order Comment: Speci men Type: BLOOD SPECIMENOrdering Facility: [facility] Address: [address] [place] [address] Performed By: #### 5 7021-8 ####[facility]ORATORYCLIA [id number] [address] [place] Platelet mean volume (Bld) [Entitic vol] 10.0 fL Normal 9.0-12.7 [facility] Comment on above: Order Comment: Speci men Type: BLOOD SPECIMENOrdering Facility: [facility] Address: [address] [place] [address] Performed By: #### 5 7021-8 ####[facility]ORATORYCLIA [id number] [address] [place] Platelets (Bld) [#/Vol] 393 10*3/uL Normal 150-400 [facility] Comment on above: Order Comment: Speci men Type: BLOOD SPECIMENOrdering Facility: [facility] Address: [address] [place] [address] Performed By: #### 5 7021-8 ####[facility] LABORATORYCLIA [id number] [address] RBC (Bld) [#/Vol] 3.46 10*6/uL Low 4.20-6.00 [facility] Comment on above: Order Comment: Speci men Type: BLOOD SPECIMENOrdering Facility: [facility] Address: [address] [place] [address] Performed By: #### 5 7021-8 ####[facility] LABORATORYCLIA [id number] [address] WBC (Bld) [#/Vol] 12.42 10*3/uL High 3.70-11.00 [facility] Comment on above: Order Comment: Speci men Type: BLOOD SPECIMENOrdering Facility: [facility] Address: [address] [place] [address] Performed By: #### 5 7021-8 ####[facility] LABORATORYCLIA [id number] [address] BRAIN WO IVCONon 08-05-[address] BRAIN WO IVCON Normal [facility] Lactate (Bld) [Moles/Vol]on 08-04-2021 Lactate [Moles/Vol] 1.4 mmol/L Normal 0.5-2.2 [facility] Comment on above: Order Comment: Speci men Type: BLOOD SPECIMENOrdering Facility: [facility] Address: [address] [place] [address] Performed By: #### 3 2693-4 ####[facility] LABORATORYCLIA [id number] [address] PROCALCITONIN (LAB)on 2021 Procalcitonin [Mass/Vol] 0.08 ng/mL Normal <0.09 [facility] Comment on above: Order Comment: Speci men Type: BLOOD SPECIMENOrdering Facility: [facility] Address: [facility] [place] [address] Result Comment: For a guided interpretation of test results, please visit the Change in Procalcitonin Calculator, [email or web address]. Performed By: #### P ROCAL ####[facility] LABORATORYCLIA [id number] [address] Prealbumin [Mass/Vol]on 07-07 Prealbumin Nephelometry [Mass/Vol] 35 mg/dL Normal [facility] Comment on above: Order Comment: Speci men Type: BLOOD SPECIMENOrdering Facility: [facility] Address: [address] [place] [address] Performed By: #### 1 4338-8 ####[facility] LABORATORYCLIA [id number] [address] SARS-CoV-2 RNA Resp Ql MEGAN+p robeon 08-04-2021 SARS-CoV-2 (COVID-19) RNA MEGAN+probe Ql (Resp) COVID 19 RESULT: SARS-CoV-2 (Agent of COVID-19) Not Detected by RT-PCR or equivalent method. This test has been authorized by FDA under an Emergency Use Authorization (EUA). Normal [facility] Comment on above: Performed By: #### 9 4500-6 ####[facility] LABORATORYCLIA [id number] [address] STATES OF [facility] TYPE AND SCREENon 08-04-2021 ABO O Normal [facility] Comment on above: Order Comment: Speci men Type: BLOOD SPECIMENOrdering Facility: [facility] Address: [address] [place] [address] Performed By: #### T SCR ####[facility] BLOOD BANKCLIA [id number] [address] HISTORICAL AB SCR STATUS Negative Normal [facility] Comment on above: Order Comment: Speci men Type: BLOOD SPECIMENOrdering Facility: [facility] Address: [address] [place] [address] Performed By: #### T SCR ####[facility] BLOOD BANKCLIA [id number] [address] Rh Nom (Bld) Positive Normal [facility] Comment on above: Order Comment: Speci men Type: BLOOD SPECIMENOrdering Facility: [facility] Address: [address] [place] [address] Performed By: #### T SCR ####[facility] BLOOD BANKCLIA [id number] [address] TYPE AND SCREEN EXPIRATION 08/07/2021 23:59 Normal [facility] Comment on above: Order Comment: Speci men Type: BLOOD SPECIMENOrdering Facility: [facility] Address: [address] [place] [address] Performed By: #### T SCR ####[facility] BLOOD BANKCLIA [id number] [address] aPTT PPPon 08-04-2021 aPTT Coag (PPP) [Time] 51.8 s High 23.0-32.[address] [facility] Comment on above: Order Comment: Speci men Type: BLOOD SPECIMENOrdering Facility: [facility] Address: [address] [place] [address] Performed By: #### 1 4979-9 ####[facility] LABORATORYCLIA [id number] [address] Basic metabolic 2000 panelon 08-03-2021 Anion gap [Moles/Vol] 9 mmol/L Normal 9-18 [facility] Comment on above: Order Comment: Speci men Type: BLOOD SPECIMENOrdering Facility: [facility] Address: [address] [place] [address] Performed By: #### 2 4321-2, 82437-0, 2777-1 ####[facility] LABORATORYCLIA [id number] [address] Calcium [Mass/Vol] 9.3 mg/dL Normal 8.5-10.2 [facility] Comment on above: Order Comment: Speci men Type: BLOOD SPECIMENOrdering Facility: [facility] Address: [address] [place] [address] Performed By: #### 2 4321-2, , 2776-05 ####[facility] LABORATORYCLIA [id number] [place] [address] [place] Chloride [Moles/Vol] 97 mmol/L Normal 97-105 [facility] Comment on above: Order Comment: Speci men Type: BLOOD SPECIMENOrdering Facility: [facility] Address: [address] [place] [address] Performed By: #### 2 4321-2, , 2776-05 ####[facility] LABORATORYCLIA [id number] [place] [address] [place] CO2 [Moles/Vol] 27 mmol/L Normal 22-30 [facility] Comment on above: Order Comment: Speci men Type: BLOOD SPECIMENOrdering Facility: [facility] Address: [address] [place] [address] Performed By: #### 2 4321-2, , 2776-05 ####[facility] LABORATORYCLIA [id number] [address] [place] Creatinine [Mass/Vol] 0.63 mg/dL Low 0.73-1.22 [facility] Comment on above: Order Comment: Speci men Type: BLOOD SPECIMENOrdering Facility: [facility] Address: [address] [place] [address] Performed By: #### 2 4321-2, , 2776-05 ####[facility] LABORATORYCLIA [id number] [address] ESTIMATED GLOMERULAR FILTRATION RATE 103 mL/min/1.73m??? Normal >=60 [facility] Comment on above: Order Comment: Speci men Type: BLOOD SPECIMENOrdering Facility: [facility] Address: [address] [place] [address] Result Comment: Luzmaria mated Glomerular Filtration Rate [...] Performed By: #### 2 4321-2, , 2776-05 ####[facility]ENTERIA [id number] [place] [address] [place] Glucose [Mass/Vol] 136 mg/dL High 74-99 [facility] Comment on above: Order Comment: Shira feldman Type: BLOOD SPECIMENOrdering Facility: [facility] Address: [address] [place] [address] Result Comment: The [place] Diabetes Association (ADA) provides guidance for cutoff [...] Standards of Medical Care in Diabetes 2016, [place] [employer] Association. Diabetes Care. 2016.39(Suppl 1). Performed By: #### 2 4321-2, , 2776-05 ####[facility] LABORATORYCLIA [id number] [place] [id number] [place] Potassium [Moles/Vol] 4.1 mmol/L Normal 3.7-5.1 [facility] Comment on above: Order Comment: Shira feldman Type: BLOOD SPECIMENOrdering Facility: [facility] Address: [address] [place] [id number] Performed By: #### 2 4321-2, , 2776-05 ####[facility] LABORATORYCLIA [id number] [place] [address] [place] Sodium [Moles/Vol] 133 mmol/L Low 136-144 [facility] Comment on above: Order Comment: Speci men Type: BLOOD SPECIMENOrdering Facility: [facility] Address: [address] [place] [address] Performed By: #### 2 4321-2, 53284-7, 2777-1 ####[facility] LABORATORYCLIA [id number] [address] [place] Urea nitrogen [Mass/Vol] 40 mg/dL High 9-24 [facility] Comment on above: Order Comment: Speci men Type: BLOOD SPECIMENOrdering Facility: [facility] Address: [address] [place] [address] Performed By: #### 2 4321-2, , 2777 ####[facility] LABORATORYCLIA [id number] [address] OF [facility] CASE MANAGEMon 08-03-2021 CASE MANAGEM Normal [facility] CBC W Auto Differential pane l (Bld)on 08-03-2021 Basophils (Bld) [#/Vol] 0.06 10*3/uL Normal <0.11 [facility] Comment on above: Order Comment: Speci men Type: BLOOD SPECIMENOrdering Facility: [facility] Address: [address] [place] [address] Performed By: #### 5 7021-8 ####[facility] LABORATORYCLIA [id number] [address] [place] Basophils/100 WBC (Bld) 0.5 % Normal [facility] Comment on above: Order Comment: Speci men Type: BLOOD SPECIMENOrdering Facility: [facility] Address: [address] [place] [address] Performed By: #### 5 7021-8 ####[facility] LABORATORYCLIA [id number] [place] [address] [place] Differential cell count method Nom (Bld) Auto Normal [facility] Comment on above: Order Comment: Speci men Type: BLOOD SPECIMENOrdering Facility: [facility] Address: [address] [place] [address] Performed By: #### 5 7021-8 ####[facility] LABORATORYCLIA [id number] [address] [place] Eosinophils (Bld) [#/Vol] 0.23 10*3/uL Normal <0.46 [facility] Comment on above: Order Comment: Speci men Type: BLOOD SPECIMENOrdering Facility: [facility] Address: [address] [place] [address] Performed By: #### 5 7021-8 ####[facility] LABORATORYCLIA [id number] [address] Eosinophils/100 WBC (Bld) 1.8 % Normal [facility] Comment on above: Order Comment: Speci men Type: BLOOD SPECIMENOrdering Facility: [facility] Address: [address] [place] [address] Performed By: #### 5 7021-8 ####[facility] LABORATORYCLIA [id number] [address] Erythrocyte distribution width (RBC) [Ratio] 17.6 % High 11.5-15.0 [facility] Comment on above: Order Comment: Speci men Type: BLOOD SPECIMENOrdering Facility: [facility] Address: [address] [place] [address] Performed By: #### 5 7021-8 ####[facility] LABORATORYCLIA [id number] [address] Hematocrit (Bld) [Volume fraction] 30.7 % Low 39.0-51.0 [facility] Comment on above: Order Comment: Speci men Type: BLOOD SPECIMENOrdering Facility: [facility] Address: [address] [place] [address] Performed By: #### 5 7021-8 ####[facility] LABORATORYCLIA [id number] [address] OF [facility] Hemoglobin (Bld) [Mass/Vol] 9.3 g/dL Low 13.0-17.0 [facility] Comment on above: Order Comment: Speci men Type: BLOOD SPECIMENOrdering Facility: [facility] Address: [address] [place] [address] Performed By: #### 5 7021-8 ####[facility] LABORATORYCLIA [id number] [address] IMMATURE GRAN % 0.6 % Normal [facility] Comment on above: Order Comment: Speci men Type: BLOOD SPECIMENOrdering Facility: [facility] Address: [address] [place] [address] Performed By: #### 5 7021-8 ####[facility] LABORATORYCLIA [id number] [address] IMMATURE GRAN ABS 0.08 k/uL Normal <0.10 [facility] Comment on above: Order Comment: Speci men Type: BLOOD SPECIMENOrdering Facility: [facility] Address: [address] [place] [address] Performed By: #### 5 7021-8 ####[facility] LABORATORYCLIA [id number] [address] Lymphocytes (Bld) [#/Vol] 2.45 10*3/uL Normal 1.00-4.00 [facility] Comment on above: Order Comment: Speci men Type: BLOOD SPECIMENOrdering Facility: [facility] Address: [address] [place] [address] Performed By: #### 5 7021-8 ####[facility] LABORATORYCLIA [id number] [address] Lymphocytes/100 WBC (Bld) 19.7 % Normal [facility] Comment on above: Order Comment: Speci men Type: BLOOD SPECIMENOrdering Facility: [facility] Address: [address] [place] [address] Performed By: #### 5 7021-8 ####[facility] LABORATORYCLIA [id number] [address] MCH (RBC) [Entitic mass] 28.2 pg Normal 26.0-34.0 [facility] Comment on above: Order Comment: Speci men Type: BLOOD SPECIMENOrdering Facility: [facility] Address: [address] [place] [address] Performed By: #### 5 7021-8 ####[facility] LABORATORYCLIA [id number] [address] MCHC (RBC) [Mass/Vol] 30.3 g/dL Low 30.5-36.0 [facility] Comment on above: Order Comment: Speci men Type: BLOOD SPECIMENOrdering Facility: [facility] Address: [address] [place] [address] Performed By: #### 5 7021-8 ####[facility] LABORATORYCLIA [id number] [address] MCV (RBC) [Entitic vol] 93.0 fL Normal 80.0-100.0 [facility] Comment on above: Order Comment: Speci men Type: BLOOD SPECIMENOrdering Facility: [facility] Address: [address] [place] [address] Performed By: #### 5 7021-8 ####[facility] LABORATORYCLIA [id number] [address] Monocytes (Bld) [#/Vol] 0.72 10*3/uL Normal <0.87 [facility] Comment on above: Order Comment: Speci men Type: BLOOD SPECIMENOrdering Facility: [facility] Address: [address] [place] [address] Performed By: #### 5 7021-8 ####[facility] LABORATORYCLIA [id number] [address] Monocytes/100 WBC (Bld) 5.8 % Normal [facility] Comment on above: Order Comment: Speci men Type: BLOOD SPECIMENOrdering Facility: [facility] Address: [address] [place] [address] Performed By: #### 5 7021-8 ####[facility] LABORATORYCLIA [id number] [address] [place] Neutrophils (Bld) [#/Vol] 8.92 10*3/uL High 1.45-7.50 [facility] Comment on above: Order Comment: Speci men Type: BLOOD SPECIMENOrdering Facility: [facility] Address: [address] [place] [address] Performed By: #### 5 7021-8 ####[facility] LABORATORYCLIA [id number] [address] [place] Neutrophils/100 WBC (Bld) 71.6 % Normal [facility] Comment on above: Order Comment: Speci men Type: BLOOD SPECIMENOrdering Facility: [facility] Address: [address] [place] [address] Performed By: #### 5 7021-8 ####[facility] LABORATORYCLIA [id number] [address] [place] Nucleated RBC (Bld) [#/Vol] 10*3/uL Normal <0.01 [facility] Comment on above: Order Comment: Speci men Type: BLOOD SPECIMENOrdering Facility: [facility] Address: [address] [place] [address] Performed By: #### 5 7021-8 ####[facility] LABORATORYCLIA [id number] [address] [place] Nucleated RBC/100 WBC (Bld) [Ratio] 0.0 /100 WBC Normal [facility] Comment on above: Order Comment: Speci men Type: BLOOD SPECIMENOrdering Facility: [facility] Address: [address] [place] [address] Performed By: #### 5 7021-8 ####[facility]ORATORYCLIA [id number] [place] [address] Platelet mean volume (Bld) [Entitic vol] 10.2 fL Normal 9.0-12.7 [facility] Comment on above: Order Comment: Speci men Type: BLOOD SPECIMENOrdering Facility: [facility] Address: [address] [place] [address] Performed By: #### 5 7021-8 ####[facility] LABORATORYCLIA [id number] [address] [place] Platelets (Bld) [#/Vol] 352 10*3/uL Normal 150-400 [facility] Comment on above: Order Comment: Speci men Type: BLOOD SPECIMENOrdering Facility: [facility] Address: [address] [place] [address] Performed By: #### 5 7021-8 ####[facility] LABORATORYCLIA [id number] [address] STATES OF [facility] RBC (Bld) [#/Vol] 3.30 10*6/uL Low 4.20-6.00 [facility] Comment on above: Order Comment: Speci men Type: BLOOD SPECIMENOrdering Facility: [facility] Address: [address] [place] [address] Performed By: #### 5 7021-8 ####[facility] LABORATORYCLIA [id number] [address] [place] WBC (Bld) [#/Vol] 12.46 10*3/uL High 3.70-11.00 [facility] Comment on above: Order Comment: Speci men Type: BLOOD SPECIMENOrdering Facility: [facility] Address: [address] [place] [address] Performed By: #### 5 7021-8 ####[facility] LABORATORYCLIA [id number] [address] OF [facility] CONSULT PROGon 08-03-2021 CONSULT PROG Normal [facility] Magnesium SerPl-mCncon 08-03 Magnesium [Mass/Vol] 2.2 mg/dL Normal 1.7-2.3 [facility] Comment on above: Order Comment: Speci men Type: BLOOD SPECIMENOrdering Facility: [facility] Address: [address] [place] [address] Performed By: #### 2 4321-2, 22565-0, 2776- ####[facility]ORATORYCLIA [id number] [address] STATES OF [facility] NURSING PROGon 08-03-2021 NURSING PROG Normal [facility] Phosphate SerPl-mCncon 08-03 Phosphate [Mass/Vol] 4.2 mg/dL Normal 2.7-4.8 [facility] Comment on above: Order Comment: Speci men Type: BLOOD SPECIMENOrdering Facility: [facility] Address: [address] [place] [address] Performed By: #### 2 4321-2, , 2776-05 ####[facility] LABORATORYCLIA [id number] [address] aPTT PPPon 08-03-2021 aPTT Coag (PPP) [Time] 50.0 s High 23.0-32.[address] [facility] Comment on above: Order Comment: Speci men Type: BLOOD SPECIMENOrdering Facility: [facility] Address: [address] [place] [address] Performed By: #### 1 4979-9 ####[facility]ORATORYCLIA [id number] [address] STATES OF [facility] CBC W Auto Differential pane l (Bld)on 08-02-2021 Basophils (Bld) [#/Vol] 10*3/uL Normal <0.11 [facility] Comment on above: Order Comment: Speci men Type: BLOOD SPECIMENOrdering Facility: [facility] Address: [address] [place] [address] Performed By: #### 5 7021-8 ####[facility] LABORATORYCLIA [id number] [address] Basophils/100 WBC (Bld) 0.2 % Normal [facility] Comment on above: Order Comment: Speci men Type: BLOOD SPECIMENOrdering Facility: [facility] Address: [address] [place] [address] Performed By: #### 5 7021-8 ####[facility] LABORATORYCLIA [id number] [place] [address] [place] Differential cell count method Nom (Bld) Auto Normal [facility] Comment on above: Order Comment: Speci men Type: BLOOD SPECIMENOrdering Facility: [facility] Address: [address] [place] [address] Performed By: #### 5 7021-8 ####[facility] LABORATORYCLIA [id number] [place] [address] [place] Eosinophils (Bld) [#/Vol] 10*3/uL Normal <0.46 [facility] Comment on above: Order Comment: Speci men Type: BLOOD SPECIMENOrdering Facility: [facility] Address: [address] [place] [address] Performed By: #### 5 7021-8 ####[facility] LABORATORYCLIA [id number] [address] STATES OF [facility] Eosinophils/100 WBC (Bld) 0.0 % Normal [facility] Comment on above: Order Comment: Speci men Type: BLOOD SPECIMENOrdering Facility: [facility] Address: [address] [place] [address] Performed By: #### 5 7021-8 ####[facility]ORATORYCLIA [id number] [place] [address] [place] Erythrocyte distribution width (RBC) [Ratio] 17.3 % High 11.5-15.0 [facility] Comment on above: Order Comment: Speci men Type: BLOOD SPECIMENOrdering Facility: [facility] Address: [address] [place] [address] Performed By: #### 5 7021-8 ####[facility] LABORATORYCLIA [id number] [address] Hematocrit (Bld) [Volume fraction] 30.8 % Low 39.0-51.0 [facility] Comment on above: Order Comment: Speci men Type: BLOOD SPECIMENOrdering Facility: [facility] Address: [address] [place] [address] Performed By: #### 5 7021-8 ####[facility] LABORATORYCLIA [id number] [address] [place] Hemoglobin (Bld) [Mass/Vol] 9.7 g/dL Low 13.0-17.0 [facility] Comment on above: Order Comment: Speci men Type: BLOOD SPECIMENOrdering Facility: [facility] Address: [address] [place] [address] Performed By: #### 5 7021-8 ####[facility] LABORATORYCLIA [id number] [address] IMMATURE GRAN % 0.5 % Normal [facility] Comment on above: Order Comment: Speci men Type: BLOOD SPECIMENOrdering Facility: [facility] Address: [address] [place] [address] Performed By: #### 5 7021-8 ####[facility] LABORATORYCLIA [id number] [address] IMMATURE GRAN ABS 0.07 k/uL Normal <0.10 [facility] Comment on above: Order Comment: Speci men Type: BLOOD SPECIMENOrdering Facility: [facility] Address: [address] [place] [address] Performed By: #### 5 7021-8 ####[facility] LABORATORYCLIA [id number] [address] [place] Lymphocytes (Bld) [#/Vol] 1.60 10*3/uL Normal 1.00-4.00 [facility] Comment on above: Order Comment: Speci men Type: BLOOD SPECIMENOrdering Facility: [facility] Address: [address] [place] [address] Performed By: #### 5 7021-8 ####[facility]ORATORYCLIA [id number] [address] Lymphocytes/100 WBC (Bld) 12.1 % Normal [facility] Comment on above: Order Comment: Speci men Type: BLOOD SPECIMENOrdering Facility: [facility] Address: [address] [place] [address] Performed By: #### 5 7021-8 ####[facility] LABORATORYCLIA [id number] [address] MCH (RBC) [Entitic mass] 28.6 pg Normal 26.0-34.0 [facility] Comment on above: Order Comment: Speci men Type: BLOOD SPECIMENOrdering Facility: [facility] Address: [address] [place] [address] Performed By: #### 5 7021-8 ####[facility] LABORATORYCLIA [id number] [address] MCHC (RBC) [Mass/Vol] 31.5 g/dL Normal 30.5-36.0 [facility] Comment on above: Order Comment: Speci men Type: BLOOD SPECIMENOrdering Facility: [facility] Address: [address] [place] [address] Performed By: #### 5 7021-8 ####[facility] LABORATORYCLIA [id number] [address] MCV (RBC) [Entitic vol] 90.9 fL Normal 80.0-100.0 [facility] Comment on above: Order Comment: Speci men Type: BLOOD SPECIMENOrdering Facility: [facility] Address: [address] [place] [address] Performed By: #### 5 7021-8 ####[facility]ORATORYCLIA [id number] [address] Monocytes (Bld) [#/Vol] 0.39 10*3/uL Normal <0.87 [facility] Comment on above: Order Comment: Speci men Type: BLOOD SPECIMENOrdering Facility: [facility] Address: [address] [place] [address] Performed By: #### 5 7021-8 ####[facility] LABORATORYCLIA [id number] [address] [place] Monocytes/100 WBC (Bld) 3.0 % Normal [facility] Comment on above: Order Comment: Speci men Type: BLOOD SPECIMENOrdering Facility: [facility] Address: [address] [place] [address] Performed By: #### 5 7021-8 ####[facility]ORATORYCLIA [id number] [place] [address] [place] Neutrophils (Bld) [#/Vol] 11.09 10*3/uL High 1.45-7.50 [facility] Comment on above: Order Comment: Speci men Type: BLOOD SPECIMENOrdering Facility: [facility] Address: [address] [place] [address] Performed By: #### 5 7021-8 ####[facility] LABORATORYCLIA [id number] [address] [place] Neutrophils/100 WBC (Bld) 84.2 % Normal [facility] Comment on above: Order Comment: Speci men Type: BLOOD SPECIMENOrdering Facility: [facility] Address: [address] [place] [address] Performed By: #### 5 7021-8 ####[facility]ORATORYCLIA [id number] [place] [address] [place] Nucleated RBC (Bld) [#/Vol] 10*3/uL Normal <0.01 [facility] Comment on above: Order Comment: Speci men Type: BLOOD SPECIMENOrdering Facility: [facility] Address: [address] [place] [address] Performed By: #### 5 7021-8 ####[facility]ATORYCLIA [id number] [address] [place] Nucleated RBC/100 WBC (Bld) [Ratio] 0.0 /100 WBC Normal [facility] Comment on above: Order Comment: Speci men Type: BLOOD SPECIMENOrdering Facility: [facility] Address: [address] [place] [address] Performed By: #### 5 7021-8 ####[facility] LABORATORYCLIA [id number] [place] [address] [place] Platelet mean volume (Bld) [Entitic vol] 10.0 fL Normal 9.0-12.7 [facility] Comment on above: Order Comment: Speci men Type: BLOOD SPECIMENOrdering Facility: [facility] Address: [address] [place] [address] Performed By: #### 5 7021-8 ####[facility]ORATORYCLIA [id number] [place] [address] [place] Platelets (Bld) [#/Vol] 358 10*3/uL Normal 150-400 [facility] Comment on above: Order Comment: Speci men Type: BLOOD SPECIMENOrdering Facility: [facility] Address: [address] [place] [address] Performed By: #### 5 7021-8 ####[facility] LABORATORYCLIA [id number] [place] [address] [place] RBC (Bld) [#/Vol] 3.39 10*6/uL Low 4.20-6.00 [facility] Comment on above: Order Comment: Speci men Type: BLOOD SPECIMENOrdering Facility: [facility] Address: [address] [place] [address] Performed By: #### 5 7021-8 ####[facility] LABORATORYCLIA [id number] [place] [address] [place] WBC (Bld) [#/Vol] 13.17 10*3/uL High 3.70-11.00 [facility] Comment on above: Order Comment: Speci men Type: BLOOD SPECIMENOrdering Facility: [facility] Address: [address] [place] [address] Performed By: #### 5 7021-8 ####[facility] LABORATORYCLIA [id number] [address] OF [facility] NURSING PROGon 08-02-2021 NURSING PROG Normal [facility] THERAPY NTon 08-02-2021 THERAPY NT Normal [facility] aPTT PPPon 08-02-2021 aPTT Coag (PPP) [Time] 54.9 s High 23.0-32.[address] [facility] Comment on above: Order Comment: Speci men Type: BLOOD SPECIMENOrdering Facility: [facility] Address: [address] [place] [address] Performed By: #### 1 4979-9 ####[facility] LABORATORYCLIA [id number] [address] [place] ALLIED HEALTHon 08-01-2021 ALLIED HEALTH Normal [facility] ALLIED HEALTH Normal [facility] Basic metabolic 2000 panelon 08-01-2021 Anion gap [Moles/Vol] 12 mmol/L Normal 9-18 [facility] Comment on above: Order Comment: Speci men Type: BLOOD SPECIMENOrdering Facility: [facility] Address: [address] [place] [address] Performed By: #### 2 4321-2, 30914-9, 91411-0, 2777-1 ####[facility] LABORATORYCLIA [id number] [place] [address] [place] Calcium [Mass/Vol] 9.1 mg/dL Normal 8.5-10.2 [facility] Comment on above: Order Comment: Speci men Type: BLOOD SPECIMENOrdering Facility: [facility] Address: [address] [place] [address] Performed By: #### 2 4321-2, 18073-5, 13319-4, 2777-1 ####[facility] LABORATORYCLIA [id number] [place] [address] [place] Chloride [Moles/Vol] 96 mmol/L Low 97-105 [facility] Comment on above: Order Comment: Speci men Type: BLOOD SPECIMENOrdering Facility: [facility] Address: [address] [place], [place] [address] Performed By: #### 2 4321-2, 23793-3, 39394-3, 277- ####[facility]ORATORYCLIA [id number] [place] [address] [place] CO2 [Moles/Vol] 27 mmol/L Normal 22-30 [facility] Comment on above: Order Comment: Speci men Type: BLOOD SPECIMENOrdering Facility: [facility] Address: [address] [place] [address] Performed By: #### 2 4321-2, 51648-5, 46370-5, 2776- ####[facility]ORATORYCLIA [id number] [address] STATES OF [facility] Creatinine [Mass/Vol] 0.64 mg/dL Low 0.73-1.22 [facility] Comment on above: Order Comment: Speci men Type: BLOOD SPECIMENOrdering Facility: [facility] Address: [address] [place] [address] Performed By: #### 2 4321-2, 44746-1, 94347-4, 2776-05 ####[facility]ORATORYCLIA [id number] [address] [place] ESTIMATED GLOMERULAR FILTRATION RATE 102 mL/min/1.73m??? Normal >=60 [facility] Comment on above: Order Comment: Speci men Type: BLOOD SPECIMENOrdering Facility: [facility] Address: [address] [place] [address] Result Comment: Luzmaria mated Glomerular Filtration Rate [...] actual GFR. Performed By: #### 2 4321-2, 20405-7, 00781-2, 2777-1 ####[facility]ORATORYCLIA [id number] [place] [address] [place] Glucose [Mass/Vol] 122 mg/dL High 74-99 [facility] Comment on above: Order Comment: Shira francia Type: BLOOD SPECIMENOrdering Facility: [facility] Address: [address] [place] [address] Result Comment: The [place] Diabetes Association (ADA) provides guidance for cutoff [...] Standards of Medical Care in Diabetes 2016, [place] [employer]. Diabetes Care. 2016.39(Suppl 1). Performed By: #### 2 4321-2, 81074-3, 73317-8, 2777-1 ####[facility]ORATORYCLIA [id number] [place] [address] [place] Potassium [Moles/Vol] 4.2 mmol/L Normal 3.7-5.1 [facility] Comment on above: Order Comment: Shira francia Type: BLOOD SPECIMENOrdering Facility: [facility] Address: [address] [address] Performed By: #### 2 4321-2, 27600-6, 24631-5, 2777-1 ####[facility]ORATORYCLIA [id number] [place] [address] [place] Sodium [Moles/Vol] 135 mmol/L Low 136-144 [facility] Comment on above: Order Comment: Johni francia Type: BLOOD SPECIMENOrdering Facility: [facility] Address: [address] [address] Performed By: #### 2 4321-2, 51393-2, 03102-6, 2777-1 ####[facility]ORATORYCLIA [id number] [place] [address] [place] Urea nitrogen [Mass/Vol] 36 mg/dL High 9-24 [facility] Comment on above: Order Comment: Speci men Type: BLOOD SPECIMENOrdering Facility: [facility] Address: [address] [place] [address] Performed By: #### 2 4321-2, 44511-5, 54885-7, 2777-1 ####[facility]ORATORYCLIA [id number] [address] STATES OF [facility] CASE MANAGEMon 08-01-2021 CASE MANAGEM Normal [facility] CBC W Auto Differential pane l (Bld)on 08-01-2021 Basophils (Bld) [#/Vol] 0.04 10*3/uL Normal <0.11 [facility] Comment on above: Order Comment: Speci men Type: BLOOD SPECIMENOrdering Facility: [facility] Address: [address] [place] [address] Performed By: #### 5 7021-8 ####[facility]ORATORYCLIA [id number] [address] [place] Basophils/100 WBC (Bld) 0.3 % Normal [facility] Comment on above: Order Comment: Speci men Type: BLOOD SPECIMENOrdering Facility: [facility] Address: [address] [place] [address] Performed By: #### 5 7021-8 ####[facility]ORATORYCLIA [id number] [address] STATES OF [facility] Differential cell count method Nom (Bld) Auto Normal [facility] Comment on above: Order Comment: Speci men Type: BLOOD SPECIMENOrdering Facility: [facility] Address: [address] [place] [address] Performed By: #### 5 7021-8 ####[facility]ORATORYCLIA [id number] [address] [place] Eosinophils (Bld) [#/Vol] 0.37 10*3/uL Normal <0.46 [facility] Comment on above: Order Comment: Speci men Type: BLOOD SPECIMENOrdering Facility: [facility] Address: [address] [place] [address] Performed By: #### 5 7021-8 ####[facility]ORATORYCLIA [id number] [address] [place] Eosinophils/100 WBC (Bld) 3.1 % Normal [facility] Comment on above: Order Comment: Speci men Type: BLOOD SPECIMENOrdering Facility: [facility] Address: [address] [place] [address] Performed By: #### 5 7021-8 ####[facility]ORATORYCLIA [id number] [address] Erythrocyte distribution width (RBC) [Ratio] 17.5 % High 11.5-15.0 [facility] Comment on above: Order Comment: Speci men Type: BLOOD SPECIMENOrdering Facility: [facility] Address: [address] [place] [address] Performed By: #### 5 7021-8 ####[facility]ORATORYCLIA [id number] [address] [place] Hematocrit (Bld) [Volume fraction] 30.1 % Low 39.0-51.0 [facility] Comment on above: Order Comment: Speci men Type: BLOOD SPECIMENOrdering Facility: [facility] Address: [address] [place] [address] Performed By: #### 5 7021-8 ####[facility]ORATORYCLIA [id number] [address] [place] Hemoglobin (Bld) [Mass/Vol] 9.1 g/dL Low 13.0-17.0 [facility] Comment on above: Order Comment: Speci men Type: BLOOD SPECIMENOrdering Facility: [facility] Address: [address] [address] Performed By: #### 5 7021-8 ####[facility] LABORATORYCLIA [id number] [address] IMMATURE GRAN % 0.6 % Normal [facility] Comment on above: Order Comment: Speci men Type: BLOOD SPECIMENOrdering Facility: [facility] Address: [address] [place] [address] Performed By: #### 5 7021-8 ####[facility]ORATORYCLIA [id number] [address] IMMATURE GRAN ABS 0.07 k/uL Normal <0.10 [facility] Comment on above: Order Comment: Speci men Type: BLOOD SPECIMENOrdering Facility: [facility] Address: [address] [place] [address] Performed By: #### 5 7021-8 ####[facility]ORATORYCLIA [id number] [address] Lymphocytes (Bld) [#/Vol] 2.05 10*3/uL Normal 1.00-4.00 [facility] Comment on above: Order Comment: Speci men Type: BLOOD SPECIMENOrdering Facility: [facility] Address: [address] [place] [address] Performed By: #### 5 7021-8 ####[facility]ORATORYCLIA [id number] [address] Lymphocytes/100 WBC (Bld) 17.1 % Normal [facility] Comment on above: Order Comment: Speci men Type: BLOOD SPECIMENOrdering Facility: [facility] Address: [address] [place] [address] Performed By: #### 5 7021-8 ####[facility] LABORATORYCLIA [id number] [address] MCH (RBC) [Entitic mass] 27.7 pg Normal 26.0-34.0 [facility] Comment on above: Order Comment: Speci men Type: BLOOD SPECIMENOrdering Facility: [facility] Address: [address] [place] [address] Performed By: #### 5 7021-8 ####[facility]ORATORYCLIA [id number] [address] MCHC (RBC) [Mass/Vol] 30.2 g/dL Low 30.5-36.0 [facility] Comment on above: Order Comment: Speci men Type: BLOOD SPECIMENOrdering Facility: [facility] Address: [address] [place] [address] Performed By: #### 5 7021-8 ####[facility] LABORATORYCLIA [id number] [address] MCV (RBC) [Entitic vol] 91.5 fL Normal 80.0-100.0 [facility] Comment on above: Order Comment: Speci men Type: BLOOD SPECIMENOrdering Facility: [facility] Address: [address] [place] [address] Performed By: #### 5 7021-8 ####[facility]ORATORYCLIA [id number] [address] Monocytes (Bld) [#/Vol] 0.53 10*3/uL Normal <0.87 [facility] Comment on above: Order Comment: Speci men Type: BLOOD SPECIMENOrdering Facility: [facility] Address: [address] [place] [address] Performed By: #### 5 7021-8 ####[facility]ORATORYCLIA [id number] [address] Monocytes/100 WBC (Bld) 4.4 % Normal [facility] Comment on above: Order Comment: Speci men Type: BLOOD SPECIMENOrdering Facility: [facility] Address: [address] [place] [address] Performed By: #### 5 7021-8 ####[facility] LABORATORYCLIA [id number] [place] [address] [place] Neutrophils (Bld) [#/Vol] 8.91 10*3/uL High 1.45-7.50 [facility] Comment on above: Order Comment: Speci men Type: BLOOD SPECIMENOrdering Facility: [facility] Address: [address] [place] [address] Performed By: #### 5 7021-8 ####[facility]ORATORYCLIA [id number] [address] [place] Neutrophils/100 WBC (Bld) 74.5 % Normal [facility] Comment on above: Order Comment: Speci men Type: BLOOD SPECIMENOrdering Facility: [facility] Address: [address] [place] [address] Performed By: #### 5 7021-8 ####[facility]ORATORYCLIA [id number] [address] [place] Nucleated RBC (Bld) [#/Vol] 10*3/uL Normal <0.01 [facility] Comment on above: Order Comment: Speci men Type: BLOOD SPECIMENOrdering Facility: [facility] Address: [address] [place] [address] Performed By: #### 5 7021-8 ####[facility] LABORATORYCLIA [id number] [address] [place] Nucleated RBC/100 WBC (Bld) [Ratio] 0.0 /100 WBC Normal [facility] Comment on above: Order Comment: Speci men Type: BLOOD SPECIMENOrdering Facility: [facility] Address: [address] [place] [address] Performed By: #### 5 7021-8 ####[facility] LABORATORYCLIA [id number] [address] [place] Platelet mean volume (Bld) [Entitic vol] 10.4 fL Normal 9.0-12.7 [facility] Comment on above: Order Comment: Speci men Type: BLOOD SPECIMENOrdering Facility: [facility] Address: [address] [place] [address] Performed By: #### 5 7021-8 ####[facility] [facility]ORYCLIA [id number] [address] STATES OF [facility] Platelets (Bld) [#/Vol] 319 10*3/uL Normal 150-400 [facility] Comment on above: Order Comment: Speci men Type: BLOOD SPECIMENOrdering Facility: [facility] Address: [address] [place] [address] Performed By: #### 5 7021-8 ####[facility] LABORATORYCLIA [id number] [place] [address] [place] RBC (Bld) [#/Vol] 3.29 10*6/uL Low 4.20-6.00 [facility] Comment on above: Order Comment: Speci men Type: BLOOD SPECIMENOrdering Facility: [facility] Address: [address] [place] [address] Performed By: #### 5 7021-8 ####[facility] LABORATORYCLIA [id number] [address] OF [facility] WBC (Bld) [#/Vol] 11.97 10*3/uL High 3.70-11.00 [facility] Comment on above: Order Comment: Speci men Type: BLOOD SPECIMENOrdering Facility: [facility] Address: [address] [place] [address] Performed By: #### 5 7021-8 ####[facility] LABORATORYCLIA [id number] [address] [place] BRAIN WO IVCONon 08-02-19 CT BRAIN WO IVCON Normal [facility] Magnesium SerPl-mCncon 08-01 Magnesium [Mass/Vol] 2.4 mg/dL High 1.7-2.3 [facility] Comment on above: Order Comment: Speci men Type: BLOOD SPECIMENOrdering Facility: [facility] Address: [address] [place] [address] Performed By: #### 2 4321-2, 94739-3, 54867-2, 2777-1 ####[facility]ORATORYCLIA [id number] [address] [place] NURSING PROGon 08-01-2021 NURSING PROG Normal [facility] NUTRITIONon 08-01-2021 NUTRITION Normal [facility] Phosphate SerPl-mCncon 08-01 Phosphate [Mass/Vol] 3.3 mg/dL Normal 2.7-4.8 [facility] Comment on above: Order Comment: Speci men Type: BLOOD SPECIMENOrdering Facility: [facility] Address: [address] [place] [address] Performed By: #### 2 4321-2, 91239-6, 86325-6, 2777-1 ####[facility]ORATORYCLIA [id number] [address] [place] Prealbumin [Mass/Vol]on 07-06 Prealbumin Nephelometry [Mass/Vol] 30 mg/dL Normal 17-36 [facility] Comment on above: Order Comment: Speci men Type: BLOOD SPECIMENOrdering Facility: [facility] Address: [address] [place] [address] Performed By: #### 2 4321-2, 54770-9, 95149-2, 2777-1 ####[facility]ORATORYCLIA [id number] [address] [place] THERAPY NTon 08-01-2021 THERAPY NT Normal [facility] THERAPY NT Normal [facility] TYPE AND SCREENon 08-01-2021 ABO O Normal [facility] Comment on above: Order Comment: Speci men Type: BLOOD SPECIMENOrdering Facility: [facility] Address: [address] [place] [address] Performed By: #### T SCR ####[facility] [place] BLOOD BANKCLIA [id number] [address] [place] HISTORICAL AB SCR STATUS Negative Normal [facility] Comment on above: Order Comment: Speci men Type: BLOOD SPECIMENOrdering Facility: [facility] Address: [address] [place] [address] Performed By: #### T SCR ####[facility] [place] BLOOD BANKCLIA [id number] [address] Rh Nom (Bld) Positive Normal [facility] Comment on above: Order Comment: Speci men Type: BLOOD SPECIMENOrdering Facility: [facility] Address: [address] [place] [address] Performed By: #### T SCR ####[facility] [place] BLOOD BANKCLIA [id number] [address] TYPE AND SCREEN EXPIRATION 08/04/2021 23:59 Normal [facility] Comment on above: Order Comment: Speci men Type: BLOOD SPECIMENOrdering Facility: [facility] Address: [address] [place] [address] Performed By: #### T SCR ####[facility] [place] BLOOD BANKCLIA [id number] [address] OF [facility] XR CHEST 1V FRONTALon 2021 XR CHEST 1V FRONTAL Normal [facility] aPTT PPPon 08-01-2021 aPTT Coag (PPP) [Time] 50.9 s High 23.0-32.[address] [facility] Comment on above: Order Comment: Speci men Type: BLOOD SPECIMENOrdering Facility: [facility] Address: [address] [place] [address] Performed By: #### 1 4979-9 ####[facility] LABORATORYCLIA [id number] [address] CBC W Auto Differential pane l (Bld)on 07-31-2021 Basophils (Bld) [#/Vol] 0.05 10*3/uL Normal <0.11 [facility] Comment on above: Order Comment: Speci men Type: BLOOD SPECIMENOrdering Facility: [facility] Address: [address] [place] [address] Performed By: #### 5 7021-8 ####[facility] LABORATORYCLIA [id number] [address] STATES [place] Basophils/100 WBC (Bld) 0.4 % Normal [facility] Comment on above: Order Comment: Speci men Type: BLOOD SPECIMENOrdering Facility: [facility] Address: [address] [place] [address] Performed By: #### 5 7021-8 ####[facility] LABORATORYCLIA [id number] [address] [place] Differential cell count method Nom (Bld) Auto Normal [facility] Comment on above: Order Comment: Speci men Type: BLOOD SPECIMENOrdering Facility: [facility] Address: [address] [place] [address] Performed By: #### 5 7021-8 ####[facility] LABORATORYCLIA [id number] [place] [address] [place] Eosinophils (Bld) [#/Vol] 0.51 10*3/uL High <0.46 [facility] Comment on above: Order Comment: Speci men Type: BLOOD SPECIMENOrdering Facility: [facility] Address: [address] [place] [address] Performed By: #### 5 7021-8 ####[facility] LABORATORYCLIA [id number] [address] [place] Eosinophils/100 WBC (Bld) 4.5 % Normal [facility] Comment on above: Order Comment: Speci men Type: BLOOD SPECIMENOrdering Facility: [facility] Address: [address] [place] [address] Performed By: #### 5 7021-8 ####[facility] LABORATORYCLIA [id number] [address] [place] Erythrocyte distribution width (RBC) [Ratio] 17.5 % High 11.5-15.0 [facility] Comment on above: Order Comment: Speci men Type: BLOOD SPECIMENOrdering Facility: [facility] Address: [address] [place] [address] Performed By: #### 5 7021-8 ####[facility]ORATORYCLIA [id number] [address] Hematocrit (Bld) [Volume fraction] 30.4 % Low 39.0-51.0 [facility] Comment on above: Order Comment: Speci men Type: BLOOD SPECIMENOrdering Facility: [facility] Address: [address] [place] [address] Performed By: #### 5 7021-8 ####[facility] [place] LABORATORYCLIA [id number] [address] Hemoglobin (Bld) [Mass/Vol] 9.2 g/dL Low 13.0-17.0 [facility] Comment on above: Order Comment: Speci men Type: BLOOD SPECIMENOrdering Facility: [facility] Address: [address] [place] [address] Performed By: #### 5 7021-8 ####[facility] [place]ORATORYCLIA [id number] [address] IMMATURE GRAN % 0.5 % Normal [facility] Comment on above: Order Comment: Speci men Type: BLOOD SPECIMENOrdering Facility: [facility] Address: [address] [place] [address] Performed By: #### 5 7021-8 ####[facility] [place]ORATORYCLIA [id number] [address] IMMATURE GRAN ABS 0.06 k/uL Normal <0.10 [facility] Comment on above: Order Comment: Speci men Type: BLOOD SPECIMENOrdering Facility: [facility] Address: [address] [place] [address] Performed By: #### 5 7021-8 ####[facility] [place] LABORATORYCLIA [id number] [address] Lymphocytes (Bld) [#/Vol] 1.99 10*3/uL Normal 1.00-4.00 [facility] Comment on above: Order Comment: Speci men Type: BLOOD SPECIMENOrdering Facility: [facility] Address: [address] [place] [address] Performed By: #### 5 7021-8 ####[facility] [place] LABORATORYCLIA [id number] [address] Lymphocytes/100 WBC (Bld) 17.6 % Normal [facility] Comment on above: Order Comment: Speci men Type: BLOOD SPECIMENOrdering Facility: [facility] Address: [address] [place] [address] Performed By: #### 5 7021-8 ####[facility] [place] LABORATORYCLIA [id number] [address] MCH (RBC) [Entitic mass] 28.4 pg Normal 26.0-34.0 [facility] Comment on above: Order Comment: Speci men Type: BLOOD SPECIMENOrdering Facility: [facility] Address: [address] [place] [address] Performed By: #### 5 7021-8 ####[facility] [place] LABORATORYCLIA [id number] [address] MCHC (RBC) [Mass/Vol] 30.3 g/dL Low 30.5-36.0 [facility] Comment on above: Order Comment: Speci men Type: BLOOD SPECIMENOrdering Facility: [facility] Address: [address] [place] [address] Performed By: #### 5 7021-8 ####[facility] [place] LABORATORYCLIA [id number] [address] MCV (RBC) [Entitic vol] 93.8 fL Normal 80.0-100.0 [facility] Comment on above: Order Comment: Speci men Type: BLOOD SPECIMENOrdering Facility: [facility] Address: [address] [place] [address] Performed By: #### 5 7021-8 ####[facility] [place] LABORATORYCLIA [id number] [address] Monocytes (Bld) [#/Vol] 0.57 10*3/uL Normal <0.87 [facility] Comment on above: Order Comment: Speci men Type: BLOOD SPECIMENOrdering Facility: [facility] Address: [address] [place] [address] Performed By: #### 5 7021-8 ####[facility]ORATORYCLIA [id number] [address] [place] Monocytes/100 WBC (Bld) 5.0 % Normal [facility] Comment on above: Order Comment: Speci men Type: BLOOD SPECIMENOrdering Facility: [facility] Address: [address] [place] [address] Performed By: #### 5 7021-8 ####[facility]ORATORYCLIA [id number] [address] [place] Neutrophils (Bld) [#/Vol] 8.12 10*3/uL High 1.45-7.50 [facility] Comment on above: Order Comment: Speci men Type: BLOOD SPECIMENOrdering Facility: [facility] Address: [address] [place] [address] Performed By: #### 5 7021-8 ####[facility]ORATORYCLIA [id number] [address] Neutrophils/100 WBC (Bld) 72.0 % Normal [facility] Comment on above: Order Comment: Speci men Type: BLOOD SPECIMENOrdering Facility: [facility] Address: [address] [place] [address] Performed By: #### 5 7021-8 ####[facility]ORATORYCLIA [id number] [address] [place] Nucleated RBC (Bld) [#/Vol] 10*3/uL Normal <0.01 [facility] Comment on above: Order Comment: Speci men Type: BLOOD SPECIMENOrdering Facility: [facility] Address: [address] [place] [address] Performed By: #### 5 7021-8 ####[facility]ORATORYCLIA [id number] [place] [address] [place] Nucleated RBC/100 WBC (Bld) [Ratio] 0.0 /100 WBC Normal [facility] Comment on above: Order Comment: Speci men Type: BLOOD SPECIMENOrdering Facility: [facility] Address: [address] [place] [address] Performed By: #### 5 7021-8 ####[facility] [place] LABORATORYCLIA [id number] [place] [address] [place] Platelet mean volume (Bld) [Entitic vol] 10.9 fL Normal 9.0-12.7 [facility] Comment on above: Order Comment: Speci men Type: BLOOD SPECIMENOrdering Facility: [facility] Address: [address] [place] [address] Performed By: #### 5 7021-8 ####[facility] [place] LABORATORYCLIA [id number] [address] [place] Platelets (Bld) [#/Vol] 303 10*3/uL Normal 150-400 [facility] Comment on above: Order Comment: Speci men Type: BLOOD SPECIMENOrdering Facility: [facility] Address: [address] [place] [address] Performed By: #### 5 7021-8 ####[facility] [place] LABORATORYCLIA [id number] [place] [address] [place] RBC (Bld) [#/Vol] 3.24 10*6/uL Low 4.20-6.00 [facility] Comment on above: Order Comment: Speci men Type: BLOOD SPECIMENOrdering Facility: [facility] Address: [address] [place] [address] Performed By: #### 5 7021-8 ####[facility] [place] LABORATORYCLIA [id number] [place] [address] [place] WBC (Bld) [#/Vol] 11.30 10*3/uL High 3.70-11.00 [facility] Comment on above: Order Comment: Speci men Type: BLOOD SPECIMENOrdering Facility: [facility] Address: [address] [place] [address] Performed By: #### 5 7021-8 ####[facility] [place] LABORATORYCLIA [id number] [address] [place] NURSING PROGon 07-31-2021 NURSING PROG Normal [facility] aPTT PPPon 07-31-2021 aPTT Coag (PPP) [Time] 64.9 s High 23.0-32.[address] [facility] Comment on above: Order Comment: Speci men Type: BLOOD SPECIMENOrdering Facility: [facility] Address: [address] [place] [address] Performed By: #### 1 4979-9 ####[facility] [place] LABORATORYCLIA [id number] [address] [place] ALLIED HEALTHon 07-30-2021 [...] 06-4 ####[facility] LABORATORYCLIA [id number] [place] [address] [place] Basic metabolic 2000 panelon 07-30-2021 Anion gap [Moles/Vol] 9 mmol/L Normal 9-18 [facility] Comment on above: Order Comment: Speci men Type: BLOOD SPECIMENOrdering Facility: [facility] Address: [address] [place] [address] Performed By: #### 2 777-1, 79402-9, 00389-0 ####[facility] [place] LABORATORYCLIA [id number] [place] [address] [place] Calcium [Mass/Vol] 8.9 mg/dL Normal 8.5-10.2 [facility] Comment on above: Order Comment: Speci men Type: BLOOD SPECIMENOrdering Facility: [facility] Address: [address] [place] [address] Performed By: #### 2 777-1, 20961-8, ####[facility] [place] LABORATORYCLIA [id number] [place] [address] [place] Chloride [Moles/Vol] 95 mmol/L Low 97-105 [facility] Comment on above: Order Comment: Speci men Type: BLOOD SPECIMENOrdering Facility: [facility] Address: [address] [place] [address] Performed By: #### 2 777-1, 61362-7, ####[facility] [place] LABORATORYCLIA [id number] [address] [place] CO2 [Moles/Vol] 28 mmol/L Normal 22-30 [facility] Comment on above: Order Comment: Speci men Type: BLOOD SPECIMENOrdering Facility: [facility] Address: [address] [place] [address] Performed By: #### 2 777-1, , ####[facility] LABORATORYCLIA [id number] [address] [place] Creatinine [Mass/Vol] 0.67 mg/dL Low 0.73-1.22 [facility] Comment on above: Order Comment: Speci men Type: BLOOD SPECIMENOrdering Facility: [facility] Address: [address] [place] [address] Performed By: #### 2 777-1, , ####[facility] LABORATORYCLIA [id number] [address] OF [facility] ESTIMATED GLOMERULAR FILTRATION RATE 101 mL/min/1.73m??? Normal >=60 [facility] Comment on above: Order Comment: Speci men Type: BLOOD SPECIMENOrdering Facility: [facility] Address: [address] [place] [address] Result Comment: Luzmaria mated Glomerular Filtration Rate [...] actual GFR. Performed By: #### 2 777-1, 75764-4, ####[facility] LABORATORYCLIA [id number] [place] [address] [place] Glucose [Mass/Vol] 125 mg/dL High 74-99 [facility] Comment on above: Order Comment: Shira feldman Type: BLOOD SPECIMENOrdering Facility: [facility] Address: [address] [place] [address] Result Comment: The [place] Diabetes Association (ADA) provides guidance for cutoff [...] Standards of Medical Care in Diabetes 2016, [place] [employer] Association. Diabetes Care. 2016.39(Suppl 1). Performed By: #### 2 777-1, , ####[facility] LABORATORYCLIA [id number] [place] [address] [place] Potassium [Moles/Vol] 3.9 mmol/L Normal 3.7-5.1 [facility] Comment on above: Order Comment: Shira feldmna Type: BLOOD SPECIMENOrdering Facility: [facility] Address: [address] [place] [address] Performed By: #### 2 777-1, 89615-9, ####[facility] LABORATORYCLIA [id number] [place] [address] [place] Sodium [Moles/Vol] 132 mmol/L Low 136-144 [facility] Comment on above: Order Comment: Speci men Type: BLOOD SPECIMENOrdering Facility: [facility] Address: [address] [place] [address] Performed By: #### 2 777-1, 83203-0, ####[facility] [place] LABORATORYCLIA [id number] [address] STATES [facility] Urea nitrogen [Mass/Vol] 38 mg/dL High 9-24 [facility] Comment on above: Order Comment: Speci men Type: BLOOD SPECIMENOrdering Facility: [facility] Address: [address] [place] [address] Performed By: #### 2 777-1, 12333-9, ####[facility] [place] LABORATORYCLIA [id number] [address] STATES OF [facility] CBC W Auto Differential pane l (Bld)on 07-30-2021 Basophils (Bld) [#/Vol] 0.04 10*3/uL Normal <0.11 [facility] Comment on above: Order Comment: Speci men Type: BLOOD SPECIMENOrdering Facility: [facility] Address: [address] [place] [address] Performed By: #### 5 7021-8 ####[facility] LABORATORYCLIA [id number] [address] [place] Basophils/100 WBC (Bld) 0.4 % Normal [facility] Comment on above: Order Comment: Speci men Type: BLOOD SPECIMENOrdering Facility: [facility] Address: [address] [place] [address] Performed By: #### 5 7021-8 ####[facility] [place] LABORATORYCLIA [id number] [address] Differential cell count method Nom (Bld) Auto Normal [facility] Comment on above: Order Comment: Speci men Type: BLOOD SPECIMENOrdering Facility: [facility] Address: [address] [place] [address] Performed By: #### 5 7021-8 ####[facility]ORATORYCLIA [id number] [address] [place] Eosinophils (Bld) [#/Vol] 0.30 10*3/uL Normal <0.46 [facility] Comment on above: Order Comment: Speci men Type: BLOOD SPECIMENOrdering Facility: [facility] Address: [address] [place] [address] Performed By: #### 5 7021-8 ####[facility] LABORATORYCLIA [id number] [address] Eosinophils/100 WBC (Bld) 2.7 % Normal [facility] Comment on above: Order Comment: Speci men Type: BLOOD SPECIMENOrdering Facility: [facility] Address: [address] [place] [address] Performed By: #### 5 7021-8 ####[facility] LABORATORYCLIA [id number] [address] Erythrocyte distribution width (RBC) [Ratio] 17.2 % High 11.5-15.0 [facility] Comment on above: Order Comment: Speci men Type: BLOOD SPECIMENOrdering Facility: [facility] Address: [address] [place] [address] Performed By: #### 5 7021-8 ####[facility] LABORATORYCLIA [id number] [address] OF [place] Hematocrit (Bld) [Volume fraction] 30.8 % Low 39.0-51.0 [facility] Comment on above: Order Comment: Speci men Type: BLOOD SPECIMENOrdering Facility: [facility] Address: [address] [place] [address] Performed By: #### 5 7021-8 ####[facility] LABORATORYCLIA [id number] [address] [place] Hemoglobin (Bld) [Mass/Vol] 9.4 g/dL Low 13.0-17.0 [facility] Comment on above: Order Comment: Speci men Type: BLOOD SPECIMENOrdering Facility: [facility] Address: [address] [place] [address] Performed By: #### 5 7021-8 ####[facility] LABORATORYCLIA [id number] [address] IMMATURE GRAN % 0.5 % Normal [facility] Comment on above: Order Comment: Speci men Type: BLOOD SPECIMENOrdering Facility: [facility] Address: [address] [place] [address] Performed By: #### 5 7021-8 ####[facility] LABORATORYCLIA [id number] [address] IMMATURE GRAN ABS 0.06 k/uL Normal <0.10 [facility] Comment on above: Order Comment: Speci men Type: BLOOD SPECIMENOrdering Facility: [facility] Address: [address] [place] [address] Performed By: #### 5 7021-8 ####[facility] LABORATORYCLIA [id number] [address] Lymphocytes (Bld) [#/Vol] 1.68 10*3/uL Normal 1.00-4.00 [facility] Comment on above: Order Comment: Speci men Type: BLOOD SPECIMENOrdering Facility: [facility] Address: [address] [place] [address] Performed By: #### 5 7021-8 ####[facility] LABORATORYCLIA [id number] [address] Lymphocytes/100 WBC (Bld) 15.3 % Normal [facility] Comment on above: Order Comment: Speci men Type: BLOOD SPECIMENOrdering Facility: [facility] Address: [address] [place] [address] Performed By: #### 5 7021-8 ####[facility] LABORATORYCLIA [id number] [address] MCH (RBC) [Entitic mass] 28.0 pg Normal 26.0-34.0 [facility] Comment on above: Order Comment: Speci men Type: BLOOD SPECIMENOrdering Facility: [facility] Address: [address] [place] [address] Performed By: #### 5 7021-8 ####[facility]ORATORYCLIA [id number] [address] STATES OF [facility] MCHC (RBC) [Mass/Vol] 30.5 g/dL Normal 30.5-36.0 [facility] Comment on above: Order Comment: Speci men Type: BLOOD SPECIMENOrdering Facility: [facility] Address: [address] [place] [address] Performed By: #### 5 7021-8 ####[facility] LABORATORYCLIA [id number] [address] [place] [facility] MCV (RBC) [Entitic vol] 91.7 fL Normal 80.0-100.0 [facility] Comment on above: Order Comment: Speci men Type: BLOOD SPECIMENOrdering Facility: [facility] Address: [address] [place] [address] Performed By: #### 5 7021-8 ####[facility] LABORATORYCLIA [id number] [address] Monocytes (Bld) [#/Vol] 0.53 10*3/uL Normal <0.87 [facility] Comment on above: Order Comment: Speci men Type: BLOOD SPECIMENOrdering Facility: [facility] Address: [address] [place] [address] Performed By: #### 5 7021-8 ####[facility] LABORATORYCLIA [id number] [address] Monocytes/100 WBC (Bld) 4.8 % Normal [facility] Comment on above: Order Comment: Speci men Type: BLOOD SPECIMENOrdering Facility: [facility] Address: [address] [place] [address] Performed By: #### 5 7021-8 ####[facility] LABORATORYCLIA [id number] [place] [address] [place] Neutrophils (Bld) [#/Vol] 8.39 10*3/uL High 1.45-7.50 [facility] Comment on above: Order Comment: Speci men Type: BLOOD SPECIMENOrdering Facility: [facility] Address: [address] [place] [address] Performed By: #### 5 7021-8 ####[facility] LABORATORYCLIA [id number] [address] [place] Neutrophils/100 WBC (Bld) 76.3 % Normal [facility] Comment on above: Order Comment: Speci men Type: BLOOD SPECIMENOrdering Facility: [facility] Address: [address] [place] [address] Performed By: #### 5 7021-8 ####[facility]ORATORYCLIA [id number] [address] STATES [facility] Nucleated RBC (Bld) [#/Vol] 10*3/uL Normal <0.01 [facility] Comment on above: Order Comment: Speci men Type: BLOOD SPECIMENOrdering Facility: [facility] Address: [address] [place] [address] Performed By: #### 5 7021-8 ####[facility] LABORATORYCLIA [id number] [address] [place] Nucleated RBC/100 WBC (Bld) [Ratio] 0.0 /100 WBC Normal [facility] Comment on above: Order Comment: Speci men Type: BLOOD SPECIMENOrdering Facility: [facility] Address: [address] [place] [address] Performed By: #### 5 7021-8 ####[facility] LABORATORYCLIA [id number] [address] [place] Platelet mean volume (Bld) [Entitic vol] 10.9 fL Normal 9.0-12.7 [facility] Comment on above: Order Comment: Speci men Type: BLOOD SPECIMENOrdering Facility: [facility] Address: [address] [place], [place] [address] Performed By: #### 5 7021-8 ####[facility]ORATORYCLIA [id number] [address] Platelets (Bld) [#/Vol] 287 10*3/uL Normal 150-400 [facility] Comment on above: Order Comment: Speci men Type: BLOOD SPECIMENOrdering Facility: [facility] Address: [address] [place] [address] Performed By: #### 5 7021-8 ####[facility]ORATORYCLIA [id number] [address] RBC (Bld) [#/Vol] 3.36 10*6/uL Low 4.20-6.00 [facility] Comment on above: Order Comment: Speci men Type: BLOOD SPECIMENOrdering Facility: [facility] Address: [address] [place] [address] Performed By: #### 5 7021-8 ####[facility]ORATORYCLIA [id number] [address] WBC (Bld) [#/Vol] 11.00 10*3/uL Normal 3.70-11.00 [facility] Comment on above: Order Comment: Speci men Type: BLOOD SPECIMENOrdering Facility: [facility] Address: [address] [place] [address] Performed By: #### 5 7021-8 ####[facility]ORATORYCLIA [id number] [address] CSF MANUAL DIFFon 07-30-2021 DIF TTL, CSF 100 cells counted Normal [facility] Comment on above: Order Comment: Speci men Type: CEREBROSPINAL FLUIDOrdering Facility: [facility] Address: [address] [place] [address] Performed By: #### L [id number], [id number], 17087-4 ####[facility]ORATORYCLIA [id number] [place] [address] [place] EOSIN%, CSF 0 % Normal [facility] Comment on above: Order Comment: Speci men Type: CEREBROSPINAL FLUIDOrdering Facility: [facility] Address: [address] [place] [address] Performed By: #### L [id number], BSB2653, 13191-8 ####[facility]ORATORYCLIA [id number] [place] [address] [place] LYMPH%, CSF 75 % Normal 50-90 [facility] Comment on above: Order Comment: Speci men Type: CEREBROSPINAL FLUIDOrdering Facility: [facility] Address: [address] [place] [address] Performed By: #### L [id number], MAC9593, 08970-4 ####[facility]ATORYCLIA [id number] [place] [address] [place] MACRO%, CSF 9 % High <1 [facility] Comment on above: Order Comment: Speci men Type: CEREBROSPINAL FLUIDOrdering Facility: [facility] Address: [address] [place] [address] Performed By: #### L [id number], VVQ7714, 41766-4 ####[facility]ORATORYCLIA [id number] [place] [address] [place] MONO%, CSF 10 % Normal 10-50 [facility] Comment on above: Order Comment: Speci men Type: CEREBROSPINAL FLUIDOrdering Facility: [facility] Address: [address] [place] [address] Performed By: #### L [id number], ZXQ6059, 69047-9 ####[facility]ORATORYCLIA [id number] [address] [place] OTHER CL%, CSF 4 % Normal [facility] Comment on above: Order Comment: Speci men Type: CEREBROSPINAL FLUIDOrdering Facility: [facility] Address: [address] [place] [address] Result Comment: Path review to follow. Performed By: #### L [id number], [id number], 38595-8 ####[facility]ATORYCLIA [id number] [address] [place] REAC LYMPH %, CSF 2 % Normal [facility] Comment on above: Order Comment: Speci men Type: CEREBROSPINAL FLUIDOrdering Facility: [facility] Address: [address] [place] [address] Performed By: #### L [id number], [id number], 93228-4 ####[facility]ORATORYCLIA [id number] [address] [place] CSF PATHOLOGIST INTERP (LAB REFLEX ORDER-NO BILL)on 07-30-2021 CSF STAFF REVIEW Negative Normal [facility] Comment on above: Order Comment: Speci men Type: CEREBROSPINAL FLUIDOrdering Facility: [facility] Address: [address] [place] [address] Performed By: #### L [id number], ZGH9192, 89209-0 ####[facility] LABORATORYCLIA [id number] [address] Pathologist name Reviewed by Eloise rebolledo MD Normal [facility] Comment on above: Order Comment: Speci men Type: CEREBROSPINAL FLUIDOrdering Facility: [facility] Address: [address] [place] [address] Performed By: #### L [id number], TNF2162, 27412-2 ####[facility]ATORYCLIA [id number] [address] [place] CT BRAIN WO IVCONon 07-31-[address] BRAIN WO IVCON Normal [facility] Cell count panel (CSF)on Clarity (CSF) Clear Normal Clear [facility] Comment on above: Order Comment: Speci men Type: CEREBROSPINAL FLUIDOrdering Facility: [facility] Address: [address] [place] [address] Performed By: #### L [id number], [id number], 28322-8 ####[facility]ATORYCLIA [id number] [address] Clarity (Unsp spec) Clear Normal Clear [facility] Comment on above: Order Comment: Speci men Type: CEREBROSPINAL FLUIDOrdering Facility: [facility] Address: [address] [place] [address] Performed By: #### L [id number], SJU8316, 24648-4 ####[facility]ORATORYCLIA [id number] [address] Color (CSF) Colorless Normal Colorless [facility] Comment on above: Order Comment: Speci men Type: CEREBROSPINAL FLUIDOrdering Facility: [facility] Address: [address] [place] [address] Performed By: #### L [id number], GNF1316, 89986-0 ####[facility]ORATORYCLIA [id number] [address] Color (Spun CSF) Colorless Normal Colorless [facility] Comment on above: Order Comment: Speci men Type: CEREBROSPINAL FLUIDOrdering Facility: [facility] Address: [address] [place], [place] [address] Performed By: #### L [id number], [id number], 61781-6 ####[facility]ORATORYCLIA [id number] [address] CSF TUBE NUMBER [employer] Normal [facility] Comment on above: Order Comment: Speci men Type: CEREBROSPINAL FLUIDOrdering Facility: [facility] Address: [address] [place], [place] [address] Performed By: #### L GW6377, YFS0675, 32443-8 ####[facility]ORATORYCLIA [id number] [address] RBC Manual cnt (CSF) [#/Vol] 9 cells/uL High 0-5 [facility] Comment on above: Order Comment: Speci men Type: CEREBROSPINAL FLUIDOrdering Facility: [facility] Address: [address] [place], [place] [address] Performed By: #### L YH1127, VGG9268, 99301-0 ####[facility]ORATORYCLIA [id number] [place] [address] [place] WBC Manual cnt (CSF) [#/Vol] 8 cells/uL High 0-5 [facility] Comment on above: Order Comment: Speci men Type: CEREBROSPINAL FLUIDOrdering Facility: [facility] Address: [address] [place] [address] Performed By: #### L ZO8500, IJT8402, 38103-6 ####[facility]ORATORYCLIA [id number] [address] STATES OF [facility] Glucose CSF-mCncon Glucose (CSF) [Mass/Vol] 65 mg/dL Normal 40-70 [facility] Comment on above: Order Comment: Speci men Type: CEREBROSPINAL FLUIDOrdering Facility: [facility] Address: [address] [place] [address] Result Comment: Lumb ar CSF glucose values of healthy patients are approximately 60% of the plasma values and must always be compared with a concurrently measured plasma value for adequate clinical interpretation.References: 1. Glucose HK (GLUC3) [package insert V 12.0 [place]]. [employer], [place], [place]. September 2015. 2. Michelle Moore, Loki, H. (2015). Chapter 7: Glucose and Lactate. Marianela Alcocer al.(eds.), Cerebrospinal Fluid in Clinical Neurology. [place]: [employer]. Performed By: #### 2 342-4, 2880-3 ####[facility]ORATORYCLIA [id number] [address] [place] Magnesium SerPl-ncon 07-30 Magnesium [Mass/Vol] 2.5 mg/dL High 1.7-2.3 [facility] Comment on above: Order Comment: Speci men Type: BLOOD SPECIMENOrdering Facility: [facility] Address: [address] [place] [address] Performed By: #### 2 777-1, 48284-3, 69353-6 ####[facility]ORATORYCLIA [id number] [address] NURSING PROGon 07-30-2021 NURSING PROG Normal [facility] Phosphate SerPl-mCncon 07-30 Phosphate [Mass/Vol] 2.4 mg/dL Low 2.7-4.8 [facility] Comment on above: Order Comment: Speci men Type: BLOOD SPECIMENOrdering Facility: [facility] Address: [address] [place] [address] Performed By: #### 2 777-1, 82076-9, 64710-3 ####[facility]ORATORYCLIA [id number] [address] Prot CSF-mCncon 07-30-2021 Protein (CSF) [Mass/Vol] 50 mg/dL High 15-45 [facility] Comment on above: Order Comment: Speci men Type: CEREBROSPINAL FLUIDOrdering Facility: [facility] Address: [address] [place] [address] Performed By: #### 2 342-4, 2880-3 ####[facility]ORATORYCLIA [id number] [address] aPTT PPPon 07-30-2021 aPTT Coag (PPP) [Time] 64.1 s High 23.0-32.[address] [facility] Comment on above: Order Comment: Speci men Type: BLOOD SPECIMENOrdering Facility: [facility] Address: [address] [place] [address] Performed By: #### 1 4979-9 ####[facility] LABORATORYCLIA [id number] [address] [place] Bacteria CSF Culton 07-30-19 22 Bacteria identified Cx Nom (CSF) CULTURE, CSF: No growth 14 days GRAM STAIN: No cells or organisms seen Gram stain performed on cytospun specimen. Gram stain confirmed by microbiology Normal [facility] Comment on above: Performed By: #### 6 06-4 ####[facility]ORATORYCLIA [id number] [address] [place] CASE MANAGEMon 07-29-2021 CASE MANAGEM Normal [facility] CBC W Auto Differential pane l (Bld)on 07-29-2021 Basophils (Bld) [#/Vol] 0.03 10*3/uL Normal <0.11 [facility] Comment on above: Order Comment: Speci men Type: BLOOD SPECIMENOrdering Facility: [facility] Address: [address] [place] [address] Performed By: #### 5 7021-8 ####[facility]ATORYCLIA [id number] [address] Basophils/100 WBC (Bld) 0.3 % Normal [facility] Comment on above: Order Comment: Speci men Type: BLOOD SPECIMENOrdering Facility: [facility] Address: [address] [place] [address] Performed By: #### 5 7021-8 ####[facility]ORATORYCLIA [id number] [address] Differential cell count method Nom (Bld) Auto Normal [facility] Comment on above: Order Comment: Speci men Type: BLOOD SPECIMENOrdering Facility: [facility] Address: [address] [place] [address] Performed By: #### 5 7021-8 ####[facility]ORATORYCLIA [id number] [address] [place] Eosinophils (Bld) [#/Vol] 0.40 10*3/uL Normal <0.46 [facility] Comment on above: Order Comment: Speci men Type: BLOOD SPECIMENOrdering Facility: [facility] Address: [address] [place] [address] Performed By: #### 5 7021-8 ####[facility]ORATORYCLIA [id number] [address] Eosinophils/100 WBC (Bld) 3.9 % Normal [facility] Comment on above: Order Comment: Speci men Type: BLOOD SPECIMENOrdering Facility: [facility] Address: [address] [place] [address] Performed By: #### 5 7021-8 ####[facility]ORATORYCLIA [id number] [address] Erythrocyte distribution width (RBC) [Ratio] 17.1 % High 11.5-15.0 [facility] Comment on above: Order Comment: Speci men Type: BLOOD SPECIMENOrdering Facility: [facility] Address: [address] [place] [address] Performed By: #### 5 7021-8 ####[facility]ORATORYCLIA [id number] [address] Hematocrit (Bld) [Volume fraction] 32.0 % Low 39.0-51.0 [facility] Comment on above: Order Comment: Speci men Type: BLOOD SPECIMENOrdering Facility: [facility] Address: [address] [place] [address] Performed By: #### 5 7021-8 ####[facility]ORATORYCLIA [id number] [address] Hemoglobin (Bld) [Mass/Vol] 9.7 g/dL Low 13.0-17.0 [facility] Comment on above: Order Comment: Speci men Type: BLOOD SPECIMENOrdering Facility: [facility] Address: [address] [place] [address] Performed By: #### 5 7021-8 ####[facility]ORATORYCLIA [id number] [address] IMMATURE GRAN % 0.6 % Normal [facility] Comment on above: Order Comment: Speci men Type: BLOOD SPECIMENOrdering Facility: [facility] Address: [address] [place] [address] Performed By: #### 5 7021-8 ####[facility]ORATORYCLIA [id number] [address] IMMATURE GRAN ABS 0.06 k/uL Normal <0.10 [facility] Comment on above: Order Comment: Speci men Type: BLOOD SPECIMENOrdering Facility: [facility] Address: [address] [place] [address] Performed By: #### 5 7021-8 ####[facility]ORATORYCLIA [id number] [address] Lymphocytes (Bld) [#/Vol] 1.96 10*3/uL Normal 1.00-4.00 [facility] Comment on above: Order Comment: Speci men Type: BLOOD SPECIMENOrdering Facility: [facility] Address: [address] [place] [address] Performed By: #### 5 7021-8 ####[facility]ATORYCLIA [id number] [address] Lymphocytes/100 WBC (Bld) 19.0 % Normal [facility] Comment on above: Order Comment: Speci men Type: BLOOD SPECIMENOrdering Facility: [facility] Address: [address] [place] [address] Performed By: #### 5 7021-8 ####[facility]ORATORYCLIA [id number] [address] [place] MCH (RBC) [Entitic mass] 28.0 pg Normal 26.0-34.0 [facility] Comment on above: Order Comment: Speci men Type: BLOOD SPECIMENOrdering Facility: [facility] Address: [address] [place] [address] Performed By: #### 5 7021-8 ####[facility]ATORYCLIA [id number] [address] [place] MCHC (RBC) [Mass/Vol] 30.3 g/dL Low 30.5-36.0 [facility] Comment on above: Order Comment: Speci men Type: BLOOD SPECIMENOrdering Facility: [facility] Address: [address] [place] [address] Performed By: #### 5 7021-8 ####[facility]ATORYCLIA [id number] [address] [place] MCV (RBC) [Entitic vol] 92.5 fL Normal 80.0-100.0 [facility] Comment on above: Order Comment: Speci men Type: BLOOD SPECIMENOrdering Facility: [facility] Address: [facility] [place] [address] Performed By: #### 5 7021-8 ####[facility]ATORYCLIA [id number] [place] [address] [place] Monocytes (Bld) [#/Vol] 0.53 10*3/uL Normal <0.87 [facility] Comment on above: Order Comment: Speci men Type: BLOOD SPECIMENOrdering Facility: [facility] Address: [address] [place] [address] Performed By: #### 5 7021-8 ####[facility]ATORYCLIA [id number] [address] Monocytes/100 WBC (Bld) 5.2 % Normal [facility] Comment on above: Order Comment: Speci men Type: BLOOD SPECIMENOrdering Facility: [facility] Address: [address] [place] [address] Performed By: #### 5 7021-8 ####[facility]ATORYCLIA [id number] [place] [address] [place] Neutrophils (Bld) [#/Vol] 7.31 10*3/uL Normal 1.45-7.50 [facility] Comment on above: Order Comment: Speci men Type: BLOOD SPECIMENOrdering Facility: [facility] Address: [address] [place] [address] Performed By: #### 5 7021-8 ####[facility]ATORYCLIA [id number] [address] [place] Neutrophils/100 WBC (Bld) 71.0 % Normal [facility] Comment on above: Order Comment: Speci men Type: BLOOD SPECIMENOrdering Facility: [facility] Address: [address] [place] [address] Performed By: #### 5 7021-8 ####[facility]ATORYCLIA [id number] [address] [place] Nucleated RBC (Bld) [#/Vol] 10*3/uL Normal <0.01 [facility] Comment on above: Order Comment: Speci men Type: BLOOD SPECIMENOrdering Facility: [facility] Address: [address] [place] [address] Performed By: #### 5 7021-8 ####[facility]ATORYCLIA [id number] [address] [place] Nucleated RBC/100 WBC (Bld) [Ratio] 0.0 /100 WBC Normal [facility] Comment on above: Order Comment: Speci men Type: BLOOD SPECIMENOrdering Facility: [facility] Address: [address] [place] [address] Performed By: #### 5 7021-8 ####[facility]ATORYCLIA [id number] [address] Platelet mean volume (Bld) [Entitic vol] 11.2 fL Normal 9.0-12.7 [facility] Comment on above: Order Comment: Speci men Type: BLOOD SPECIMENOrdering Facility: [facility] Address: [address] [place] [address] Performed By: #### 5 7021-8 ####[facility]ATORYCLIA [id number] [address] [place] Platelets (Bld) [#/Vol] 276 10*3/uL Normal 150-400 [facility] Comment on above: Order Comment: Speci men Type: BLOOD SPECIMENOrdering Facility: [facility] Address: [address] [place] [address] Performed By: #### 5 7021-8 ####[facility]ATORYCLIA [id number] [address] [place] RBC (Bld) [#/Vol] 3.46 10*6/uL Low 4.20-6.00 [facility] Comment on above: Order Comment: Speci men Type: BLOOD SPECIMENOrdering Facility: [facility] Address: [address] [place] [address] Performed By: #### 5 7021-8 ####[facility]ATORYCLIA [id number] [address] STATES OF [facility] WBC (Bld) [#/Vol] 10.29 10*3/uL Normal 3.70-11.00 [facility] Comment on above: Order Comment: Speci men Type: BLOOD SPECIMENOrdering Facility: [facility] Address: [address] [place] [address] Performed By: #### 5 7021-8 ####[facility]ATORYCLIA [id number] [address] NURSING PROGon 07-29-2021 NURSING PROG Normal [facility] THERAPY NTon 07-29-2021 THERAPY NT Normal [facility] aPTT PPPon 07-29-2021 aPTT Coag (PPP) [Time] 59.2 s High 23.0-32.[address] [facility] Comment on above: Order Comment: Speci men Type: BLOOD SPECIMENOrdering Facility: [facility] Address: [address] [place] [address] Performed By: #### 1 4979-9 ####[facility]ATORYCLIA [id number] [address] [place] ALLIED HEALTHon 07-28-2021 ALLIED HEALTH Normal [facility] Basic metabolic 2000 panelon 07-28-2021 Anion gap [Moles/Vol] 7 mmol/L Low 9-18 [facility] Comment on above: Order Comment: Speci men Type: BLOOD SPECIMENOrdering Facility: [facility] Address: [address] [place] [address] Performed By: #### 1 4338-8, 87493-8, 2777-1, 87208-9 ####[facility]ATORYCLIA [id number] [address] STATES [facility] Calcium [Mass/Vol] 9.0 mg/dL Normal 8.5-10.2 [facility] Comment on above: Order Comment: Speci men Type: BLOOD SPECIMENOrdering Facility: [facility] Address: [address] [place] [address] Performed By: #### 1 4338-8, 89013-8, 2777-1, 37764-5 ####[facility]ATORYCLIA [id number] [place] [address] [place] Chloride [Moles/Vol] 94 mmol/L Low 97-105 [facility] Comment on above: Order Comment: Speci men Type: BLOOD SPECIMENOrdering Facility: [facility] Address: [address] [place] [address] Performed By: #### 1 4338-8, 28130-3, 2777-1, 07583-5 ####[facility] LABORATORYCLIA [id number] [address] STATES OF [facility] CO2 [Moles/Vol] 31 mmol/L High 22-30 [facility] Comment on above: Order Comment: Speci men Type: BLOOD SPECIMENOrdering Facility: [facility] Address: [address] [place] [address] Performed By: #### 1 4338-8, 56750-6, 2777-1, 89036-0 ####[facility] LABORATORYCLIA [id number] [place] [address] [place] Creatinine [Mass/Vol] 0.75 mg/dL Normal 0.73-1.22 [facility] Comment on above: Order Comment: Speci men Type: BLOOD SPECIMENOrdering Facility: [facility] Address: [address] [place] [address] Performed By: #### 1 4338-8, 86886-5, 2777-1, 28856-2 ####[facility] LABORATORYCLIA [id number] [address] STATES OF [facility] ESTIMATED GLOMERULAR FILTRATION RATE 98 mL/min/1.73m??? Normal >=60 [facility] Comment on above: Order Comment: Shira feldman Type: BLOOD SPECIMENOrdering Facility: [facility] Address: [address] [place], [place] [address] Result Comment: Luzmaria mated Glomerular Filtration Rate [...] actual GFR. Performed By: #### 1 4338-8, 87439-5, 2777-1, 92179-5 ####[facility]ITAL[facility] [id number] [place] [address] [place] Glucose [Mass/Vol] 122 mg/dL High 74-99 [facility] Comment on above: Order Comment: Shira feldman Type: BLOOD SPECIMENOrdering Facility: [facility] Address: [address] [place] [address] Result Comment: The [place] Diabetes Association (ADA) provides guidance for cutoff [...] Standards of Medical Care in Diabetes 2016, [place] Diabetes Association. Diabetes Care. 2016.39(Suppl 1). Performed By: #### 1 4338-8, 24269-2, 2777-1, 45667-5 ####[facility]IA [id number] [place] [id number] [place] Potassium [Moles/Vol] 4.0 mmol/L Normal 3.7-5.1 [facility] Comment on above: Order Comment: Shira men Type: BLOOD SPECIMENOrdering Facility: [facility] Address: [address] [place] [address] Performed By: #### 1 4338-8, 01370-7, 2777-, 63729-4 ####[facility] LABORATORYCLIA [id number] [address] STATES OF [facility] Sodium [Moles/Vol] 132 mmol/L Low 136-144 [facility] Comment on above: Order Comment: Speci men Type: BLOOD SPECIMENOrdering Facility: [facility] Address: [address] [place] [address] Performed By: #### 1 4338-8, , 2777-, 75364-9 ####[facility] LABORATORYCLIA [id number] [address] [place] Urea nitrogen [Mass/Vol] 34 mg/dL High 01-28 [facility] Comment on above: Order Comment: Speci men Type: BLOOD SPECIMENOrdering Facility: [facility] Address: [address] [place] [address] Performed By: #### 1 4338-8, 65012-7, 2777-, 28154-6 ####[facility]ORATORYCLIA [id number] [address] [place] CBC W Auto Differential pane l (Bld)on 07-28-2021 Basophils (Bld) [#/Vol] 0.04 10*3/uL Normal <0.11 [facility] Comment on above: Order Comment: Speci men Type: BLOOD SPECIMENOrdering Facility: [facility] Address: [address] [place] [address] Performed By: #### 5 7021-8 ####[facility] LABORATORYCLIA [id number] [address] STATES OF [facility] Basophils/100 WBC (Bld) 0.5 % Normal [facility] Comment on above: Order Comment: Speci men Type: BLOOD SPECIMENOrdering Facility: [facility] Address: [address] [place] [address] Performed By: #### 5 7021-8 ####[facility]ORATORYCLIA [id number] [address] Differential cell count method Nom (Bld) Auto Normal [facility] Comment on above: Order Comment: Speci men Type: BLOOD SPECIMENOrdering Facility: [facility] Address: [address] [place] [address] Performed By: #### 5 7021-8 ####[facility] LABORATORYCLIA [id number] [address] Eosinophils (Bld) [#/Vol] 0.30 10*3/uL Normal <0.46 [facility] Comment on above: Order Comment: Speci men Type: BLOOD SPECIMENOrdering Facility: [facility] Address: [address] [place] [address] Performed By: #### 5 7021-8 ####[facility]ORATORYCLIA [id number] [address] Eosinophils/100 WBC (Bld) 3.4 % Normal [facility] Comment on above: Order Comment: Speci men Type: BLOOD SPECIMENOrdering Facility: [facility] Address: [address] [place] [address] Performed By: #### 5 7021-8 ####[facility] LABORATORYCLIA [id number] [address] Erythrocyte distribution width (RBC) [Ratio] 16.9 % High 11.5-15.0 [facility] Comment on above: Order Comment: Speci men Type: BLOOD SPECIMENOrdering Facility: [facility] Address: [address] [place] [address] Performed By: #### 5 7021-8 ####[facility]ORATORYCLIA [id number] [address] Hematocrit (Bld) [Volume fraction] 30.3 % Low 39.0-51.0 [facility] Comment on above: Order Comment: Speci men Type: BLOOD SPECIMENOrdering Facility: [facility] Address: [address] [place] [address] Performed By: #### 5 7021-8 ####[facility] LABORATORYCLIA [id number] [address] Hemoglobin (Bld) [Mass/Vol] 9.2 g/dL Low 13.0-17.0 [facility] Comment on above: Order Comment: Speci men Type: BLOOD SPECIMENOrdering Facility: [facility] Address: [address] [place] [address] Performed By: #### 5 7021-8 ####[facility]ORATORYCLIA [id number] [address] IMMATURE GRAN % 0.6 % Normal [facility] Comment on above: Order Comment: Speci men Type: BLOOD SPECIMENOrdering Facility: [facility] Address: [address] [place] [address] Performed By: #### 5 7021-8 ####[facility] LABORATORYCLIA [id number] [address] IMMATURE GRAN ABS 0.05 k/uL Normal <0.10 [facility] Comment on above: Order Comment: Speci men Type: BLOOD SPECIMENOrdering Facility: [facility] Address: [address] [place] [address] Performed By: #### 5 7021-8 ####[facility] LABORATORYCLIA [id number] [address] Lymphocytes (Bld) [#/Vol] 1.68 10*3/uL Normal 1.00-4.00 [facility] Comment on above: Order Comment: Speci men Type: BLOOD SPECIMENOrdering Facility: [facility] Address: [address] [place] [address] Performed By: #### 5 7021-8 ####[facility]ORATORYCLIA [id number] [address] Lymphocytes/100 WBC (Bld) 19.2 % Normal [facility] Comment on above: Order Comment: Speci men Type: BLOOD SPECIMENOrdering Facility: [facility] Address: [address] [place] [address] Performed By: #### 5 7021-8 ####[facility]ORATORYCLIA [id number] [address] MCH (RBC) [Entitic mass] 28.4 pg Normal 26.0-34.0 [facility] Comment on above: Order Comment: Speci men Type: BLOOD SPECIMENOrdering Facility: [facility] Address: [address] [place] [address] Performed By: #### 5 7021-8 ####[facility]ORATORYCLIA [id number] [address] MCHC (RBC) [Mass/Vol] 30.4 g/dL Low 30.5-36.0 [facility] Comment on above: Order Comment: Speci men Type: BLOOD SPECIMENOrdering Facility: [facility] Address: [address] [place] [address] Performed By: #### 5 7021-8 ####[facility]ORATORYCLIA [id number] [address] MCV (RBC) [Entitic vol] 93.5 fL Normal 80.0-100.0 [facility] Comment on above: Order Comment: Speci men Type: BLOOD SPECIMENOrdering Facility: [facility] Address: [address] [place] [address] Performed By: #### 5 7021-8 ####[facility]ORATORYCLIA [id number] [address] Monocytes (Bld) [#/Vol] 0.58 10*3/uL Normal <0.87 [facility] Comment on above: Order Comment: Speci men Type: BLOOD SPECIMENOrdering Facility: [facility] Address: [address] [place] [address] Performed By: #### 5 7021-8 ####[facility]ITALCLIA [id number] [address] [place] Monocytes/100 WBC (Bld) 6.6 % Normal [facility] Comment on above: Order Comment: Speci men Type: BLOOD SPECIMENOrdering Facility: [facility] Address: [address] [place] [address] Performed By: #### 5 7021-8 ####[facility]ORATORYCLIA [id number] [place] [address] [place] Neutrophils (Bld) [#/Vol] 6.11 10*3/uL Normal 1.45-7.50 [facility] Comment on above: Order Comment: Speci men Type: BLOOD SPECIMENOrdering Facility: [facility] Address: [address] [place] [address] Performed By: #### 5 7021-8 ####[facility] LABORATORYCLIA [id number] [address] Neutrophils/100 WBC (Bld) 69.7 % Normal [facility] Comment on above: Order Comment: Speci men Type: BLOOD SPECIMENOrdering Facility: [facility] Address: [address] [place] [address] Performed By: #### 5 7021-8 ####[facility] LABORATORYCLIA [id number] [address] [place] Nucleated RBC (Bld) [#/Vol] 10*3/uL Normal <0.01 [facility] Comment on above: Order Comment: Speci men Type: BLOOD SPECIMENOrdering Facility: [facility] Address: [address] [place] [address] Performed By: #### 5 7021-8 ####[facility]ATORYCLIA [id number] [address] [place] Nucleated RBC/100 WBC (Bld) [Ratio] 0.0 /100 WBC Normal [facility] Comment on above: Order Comment: Speci men Type: BLOOD SPECIMENOrdering Facility: [facility] Address: [address] Performed By: #### 5 7021-8 ####[facility] LABORATORYCLIA [id number] [address] STATES [facility] Platelet mean volume (Bld) [Entitic vol] 11.3 fL Normal 9.0-12.7 [facility] Comment on above: Order Comment: Speci men Type: BLOOD SPECIMENOrdering Facility: [facility] Address: [address] [place] [address] Performed By: #### 5 7021-8 ####[facility]ORATORYCLIA [id number] [place] [address] [place] Platelets (Bld) [#/Vol] 238 10*3/uL Normal 150-400 [facility] Comment on above: Order Comment: Speci men Type: BLOOD SPECIMENOrdering Facility: [facility] Address: [address] [place] [address] Performed By: #### 5 7021-8 ####[facility]ORATORYCLIA [id number] [address] [place] RBC (Bld) [#/Vol] 3.24 10*6/uL Low 4.20-6.00 [facility] Comment on above: Order Comment: Speci men Type: BLOOD SPECIMENOrdering Facility: [facility] Address: [address] [place] [address] Performed By: #### 5 7021-8 ####[facility]ORATORYCLIA [id number] [address] [place] WBC (Bld) [#/Vol] 8.76 10*3/uL Normal 3.70-11.00 [facility] Comment on above: Order Comment: Speci men Type: BLOOD SPECIMENOrdering Facility: [facility] Address: [address] [place], [place] [address] Performed By: #### 5 7021-8 ####[facility] LABORATORYCLIA [id number] [address] [place] MRI BRAIN WO/W IVCONon 07-28 MRI BRAIN WO/W IVCON Normal [facility] Magnesium SerPl-mCncon 07-28 Magnesium [Mass/Vol] 2.5 mg/dL High 1.7-2.3 [facility] Comment on above: Order Comment: Speci men Type: BLOOD SPECIMENOrdering Facility: [facility] Address: [address] [place] [address] Performed By: #### 1 4338-8, 67060-6, 277-1, 40219-5 ####[facility]ORATORYCLIA [id number] [address] OF [facility] NURSING PROGon 07-28-2021 NURSING PROG Normal [facility] NURSING PROG Normal [facility] Phosphate SerPl-mCncon 07-28 Phosphate [Mass/Vol] 2.8 mg/dL Normal 2.7-4.8 [facility] Comment on above: Order Comment: Speci men Type: BLOOD SPECIMENOrdering Facility: [facility] Address: [address] [place] [address] Performed By: #### 1 4338-8, 66684-8, 2776-05, 56222-3 ####[facility]ORATORYCLIA [id number] [address] [place] Prealbumin [Mass/Vol]on 07-06 Prealbumin Nephelometry [Mass/Vol] 25 mg/dL Normal 17-36 [facility] Comment on above: Order Comment: Speci men Type: BLOOD SPECIMENOrdering Facility: [facility] Address: [facility] [place] [address] Performed By: #### 1 4338-8, 54022-9, 277-, 84502-8 ####[facility]ORATORYCLIA [id number] [address] [place] aPTT PPPon 07-28-2021 aPTT Coag (PPP) [Time] 53.0 s High 23.0-32.[address] [facility] Comment on above: Order Comment: Speci men Type: BLOOD SPECIMENOrdering Facility: [facility] Address: [address] [place] [address] Performed By: #### 1 4979-9 ####[facility]ORATORYCLIA [id number] [address] [place] aPTT Coag (PPP) [Time] 57.2 s High 23.0-32.[address] [facility] Comment on above: Order Comment: Speci men Type: BLOOD SPECIMENOrdering Facility: [facility] Address: [address] [place] [address] Performed By: #### 1 4979-9 ####[facility]ORATORYCLIA [id number] [address] Bacteria CSF Culton 07-28-19 Bacteria identified Cx Nom (CSF) CULTURE, CSF: No growth 14 days GRAM STAIN: No organisms seen Rare Polymorphonuclear leukocytes Rare Red Blood Cells Gram stain performed on cytospun specimen. Normal [facility] Comment on above: Performed By: #### 6 06-4 ####[facility]ORATORYCLIA [id number] [address] Bacteria Spec Resp Culton Bacteria identified Respiratory culture Nom (Unsp spec) CULTURE, RESPIRATORY: Rare Normal respiratory chris present GRAM STAIN: No organisms seen Rare Polymorphonuclear leukocytes Rare Epithelial cells Normal [facility] Comment on above: Performed By: #### 3 2355-0 ####[facility]ORATORYCLIA [id number] [address] CASE MANAGEMon 07-27-2021 CASE MANAGEM Normal [facility] CBC W Auto Differential pane l (Bld)on 07-27-2021 Basophils (Bld) [#/Vol] 0.04 10*3/uL Normal <0.11 [facility] Comment on above: Order Comment: Speci men Type: BLOOD SPECIMENOrdering Facility: [facility] Address: [address] [place] [address] Performed By: #### 5 7021-8 ####[facility]ITALCLIA [id number] [address] [place] Basophils/100 WBC (Bld) 0.4 % Normal [facility] Comment on above: Order Comment: Speci men Type: BLOOD SPECIMENOrdering Facility: [facility] Address: [address] [place] [address] Performed By: #### 5 7021-8 ####[facility]ORATORYCLIA [id number] [address] Differential cell count method Nom (Bld) Auto Normal [facility] Comment on above: Order Comment: Speci men Type: BLOOD SPECIMENOrdering Facility: [facility] Address: [address] [place] [address] Performed By: #### 5 7021-8 ####[facility]ORATORYCLIA [id number] [address] [place] Eosinophils (Bld) [#/Vol] 0.50 10*3/uL High <0.46 [facility] Comment on above: Order Comment: Speci men Type: BLOOD SPECIMENOrdering Facility: [facility] Address: [address] [place] [address] Performed By: #### 5 7021-8 ####[facility]ORATORYCLIA [id number] [address] [place] Eosinophils/100 WBC (Bld) 5.2 % Normal [facility] Comment on above: Order Comment: Speci men Type: BLOOD SPECIMENOrdering Facility: [facility] Address: [address] [place] [address] Performed By: #### 5 7021-8 ####[facility]ORATORYCLIA [id number] [address] Erythrocyte distribution width (RBC) [Ratio] 16.8 % High 11.5-15.0 [facility] Comment on above: Order Comment: Speci men Type: BLOOD SPECIMENOrdering Facility: [facility] Address: [address] [place] [address] Performed By: #### 5 7021-8 ####[facility]ORATORYCLIA [id number] [address] Hematocrit (Bld) [Volume fraction] 29.8 % Low 39.0-51.0 [facility] Comment on above: Order Comment: Speci men Type: BLOOD SPECIMENOrdering Facility: [facility] Address: [address] [place] [address] Performed By: #### 5 7021-8 ####[facility]ORATORYCLIA [id number] [address] Hemoglobin (Bld) [Mass/Vol] 9.0 g/dL Low 13.0-17.0 [facility] Comment on above: Order Comment: Speci men Type: BLOOD SPECIMENOrdering Facility: [facility] Address: [address] [place] [address] Performed By: #### 5 7021-8 ####[facility]ORATORYCLIA [id number] [address] IMMATURE GRAN % 0.6 % Normal [facility] Comment on above: Order Comment: Speci men Type: BLOOD SPECIMENOrdering Facility: [facility] Address: [address] [place] [address] Performed By: #### 5 7021-8 ####[facility]ORATORYCLIA [id number] [address] IMMATURE GRAN ABS 0.06 k/uL Normal <0.10 [facility] Comment on above: Order Comment: Speci men Type: BLOOD SPECIMENOrdering Facility: [facility] Address: [address] [place] [address] Performed By: #### 5 7021-8 ####[facility] LABORATORYCLIA [id number] [address] Lymphocytes (Bld) [#/Vol] 1.73 10*3/uL Normal 1.00-4.00 [facility] Comment on above: Order Comment: Speci men Type: BLOOD SPECIMENOrdering Facility: [facility] Address: [address] [place] [address] Performed By: #### 5 7021-8 ####[facility]ORATORYCLIA [id number] [address] Lymphocytes/100 WBC (Bld) 17.9 % Normal [facility] Comment on above: Order Comment: Speci men Type: BLOOD SPECIMENOrdering Facility: [facility] Address: [address] [place] [address] Performed By: #### 5 7021-8 ####[facility]ORATORYCLIA [id number] [address] MCH (RBC) [Entitic mass] 28.1 pg Normal 26.0-34.0 [facility] Comment on above: Order Comment: Speci men Type: BLOOD SPECIMENOrdering Facility: [facility] Address: [address] [place] [address] Performed By: #### 5 7021-8 ####[facility]ORATORYCLIA [id number] [address] STATES OF [facility] MCHC (RBC) [Mass/Vol] 30.2 g/dL Low 30.5-36.0 [facility] Comment on above: Order Comment: Speci men Type: BLOOD SPECIMENOrdering Facility: [facility] Address: [address] [place] [address] Performed By: #### 5 7021-8 ####[facility]ORATORYCLIA [id number] [address] STATES OF [facility] MCV (RBC) [Entitic vol] 93.1 fL Normal 80.0-100.0 [facility] Comment on above: Order Comment: Speci men Type: BLOOD SPECIMENOrdering Facility: [facility] Address: [address] [place] [address] Performed By: #### 5 7021-8 ####[facility] LABORATORYCLIA [id number] [place] [address] [place] Monocytes (Bld) [#/Vol] 0.59 10*3/uL Normal <0.87 [facility] Comment on above: Order Comment: Speci men Type: BLOOD SPECIMENOrdering Facility: [facility] Address: [address] [place] [address] Performed By: #### 5 7021-8 ####[facility]ORATORYCLIA [id number] [address] [place] Monocytes/100 WBC (Bld) 6.1 % Normal [facility] Comment on above: Order Comment: Speci men Type: BLOOD SPECIMENOrdering Facility: [facility] Address: [address] [place] [address] Performed By: #### 5 7021-8 ####[facility] LABORATORYCLIA [id number] [address] [place] Neutrophils (Bld) [#/Vol] 6.75 10*3/uL Normal 1.45-7.50 [facility] Comment on above: Order Comment: Speci men Type: BLOOD SPECIMENOrdering Facility: [facility] Address: [address] [place] [address] Performed By: #### 5 7021-8 ####[facility]ORATORYCLIA [id number] [address] [place] Neutrophils/100 WBC (Bld) 69.8 % Normal [facility] Comment on above: Order Comment: Speci men Type: BLOOD SPECIMENOrdering Facility: [facility] Address: [address] [place] [address] Performed By: #### 5 7021-8 ####[facility]ATORYCLIA [id number] [place] [address] [place] Nucleated RBC (Bld) [#/Vol] 10*3/uL Normal <0.01 [facility] Comment on above: Order Comment: Speci men Type: BLOOD SPECIMENOrdering Facility: [facility] Address: [address] [place] [address] Performed By: #### 5 7021-8 ####[facility]ATORYCLIA [id number] [address] [place] Nucleated RBC/100 WBC (Bld) [Ratio] 0.0 /100 WBC Normal [facility] Comment on above: Order Comment: Speci men Type: BLOOD SPECIMENOrdering Facility: [facility] Address: [address] [place] [address] Performed By: #### 5 7021-8 ####[facility]ATORYCLIA [id number] [address] [place] Platelet mean volume (Bld) [Entitic vol] 11.3 fL Normal 9.0-12.7 [facility] Comment on above: Order Comment: Speci men Type: BLOOD SPECIMENOrdering Facility: [facility] Address: [address] [place] [address] Performed By: #### 5 7021-8 ####[facility]ATORYCLIA [id number] [address] [place] Platelets (Bld) [#/Vol] 227 10*3/uL Normal 150-400 [facility] Comment on above: Order Comment: Speci men Type: BLOOD SPECIMENOrdering Facility: [facility] Address: [address] [place] [address] Performed By: #### 5 7021-8 ####[facility]ATORYCLIA [id number] [address] [place] RBC (Bld) [#/Vol] 3.20 10*6/uL Low 4.20-6.00 [facility] Comment on above: Order Comment: Speci men Type: BLOOD SPECIMENOrdering Facility: [facility] Address: [address] [place] [address] Performed By: #### 5 7021-8 ####[facility] LABORATORYCLIA [id number] [address] [place] WBC (Bld) [#/Vol] 9.67 10*3/uL Normal 3.70-11.00 [facility] Comment on above: Order Comment: Speci men Type: BLOOD SPECIMENOrdering Facility: [facility] Address: [address] [place] [address] Performed By: #### 5 7021-8 ####[facility] LABORATORYCLIA [id number] [place] CONSULT PROGon 07-27-2021 CONSULT PROG Normal [facility] Center CSF MANUAL DIFFon 07-27-2021 DIF TTL, CSF 100 cells counted Normal [facility] Comment on above: Order Comment: Speci men Type: CEREBROSPINAL FLUIDOrdering Facility: [facility] Address: [address] [place] [address] Performed By: #### L [id number], 55213-4, [id number] ####[facility]ORATORYCLIA [id number] [place] [address] [place] LYMPH%, CSF 75 % Normal 50-90 [facility] Comment on above: Order Comment: Speci men Type: CEREBROSPINAL FLUIDOrdering Facility: [facility] Address: [address] [place] [address] Performed By: #### L [id number], 71752-4, [id number] ####[facility]ORATORYCLIA [id number] [place] [address] [place] MONO%, CSF 22 % Normal 10-50 [facility] Comment on above: Order Comment: Speci men Type: CEREBROSPINAL FLUIDOrdering Facility: [facility] Address: [address] [place] [address] Performed By: #### L [id number], 05262-9, [id number] ####[facility]ATORYCLIA [id number] [address] [place] NEUT%, CSF 2 % Normal 0-3 [facility] Comment on above: Order Comment: Speci men Type: CEREBROSPINAL FLUIDOrdering Facility: [facility] Address: [address] [place] [address] Performed By: #### L [id number], 75047-0, [id number] ####[facility]ORATORYCLIA [id number] [place] [address] [place] OTHER CL%, CSF 1 % Normal [facility] Comment on above: Order Comment: Speci men Type: CEREBROSPINAL FLUIDOrdering Facility: [facility] Address: [address] [place] [address] Result Comment: Path ologist review of microscopy results to follow Performed By: #### L [id number], 38566-0, [id number] ####[facility]ORATORYCLIA [id number] [place] [address] [place] CSF PATHOLOGIST INTERP (LAB REFLEX ORDER-NO BILL)on 07-27-2021 CSF STAFF REVIEW Negative Normal [facility] Comment on above: Order Comment: Speci men Type: CEREBROSPINAL FLUIDOrdering Facility: [facility] Address: [address] [place] [address] Performed By: #### L [id number], 06499-5, [id number] ####[facility]ATORYCLIA [id number] [address] Pathologist name Reviewed by Amador Stevens MD Normal [facility] Comment on above: Order Comment: Speci men Type: CEREBROSPINAL FLUIDOrdering Facility: [facility] Address: [address] [place] [address] Performed By: #### L XC2816, 31004-7, [id number] ####[facility]ATORYCLIA [id number] [address] Cell count panel (CSF)on Clarity (CSF) Clear Normal Clear [facility] Comment on above: Order Comment: Speci men Type: CEREBROSPINAL FLUIDOrdering Facility: [facility] Address: [address] [place] [address] Performed By: #### L FT2300, 49134-8, [id number] ####[facility]ORATORYCLIA [id number] [address] [place] Clarity (Unsp spec) Not Indicated Normal Clear [facility] Comment on above: Order Comment: Speci men Type: CEREBROSPINAL FLUIDOrdering Facility: [facility] Address: [address] [address] Performed By: #### L NA0236, 67936-9, [id number] ####[facility]ATORYCLIA [id number] [address] Color (CSF) Colorless Normal Colorless [facility] Comment on above: Order Comment: Speci men Type: CEREBROSPINAL FLUIDOrdering Facility: [facility] Address: [address] [place] [address] Performed By: #### L RP5363, 06072-2, [id number] ####[facility]ATORYCLIA [id number] [address] Color (Spun CSF) Not Indicated Normal Colorless [facility] Comment on above: Order Comment: Speci men Type: CEREBROSPINAL FLUIDOrdering Facility: [facility] Address: [address] [place] [address] Performed By: #### L XS0008, 26390-8, [id number] ####[facility]ATORYCLIA [id number] [address] CSF TUBE NUMBER [employer] Normal [facility] Comment on above: Order Comment: Speci men Type: CEREBROSPINAL FLUIDOrdering Facility: [facility] Address: [address] [place] [address] Performed By: #### L [id number], 48286-2, [id number] ####[facility]ATORYCLIA [id number] [address] RBC Manual cnt (CSF) [#/Vol] 39 cells/uL High 0-5 [facility] Comment on above: Order Comment: Speci men Type: CEREBROSPINAL FLUIDOrdering Facility: [facility] Address: [address] [place] [address] Performed By: #### L SV3522, 85546-4, [id number] ####[facility]ATORYCLIA [id number] [address] [place] WBC Manual cnt (CSF) [#/Vol] 14 cells/uL High 0-5 [facility] Comment on above: Order Comment: Speci men Type: CEREBROSPINAL FLUIDOrdering Facility: [facility] Address: [address] [place] [address] Performed By: #### L CD6038, 46114-0, [id number] ####[facility]ORATORYCLIA [id number] [place] [address] [place] Glucose CSF-mCncon 2 Glucose (CSF) [Mass/Vol] 64 mg/dL Normal 40-70 [facility] Comment on above: Order Comment: Speci men Type: CEREBROSPINAL FLUIDOrdering Facility: [facility] Address: [address] [place] [address] Result Comment: Lumb ar CSF glucose values of healthy patients are approximately 60% of the plasma values and must always be compared with a concurrently measured plasma value for adequate clinical interpretation.References: 1. Glucose HK (GLUC3) [package insert V 12.0 [place]]. [employer], [place], [place]. September 2015. 2. Michelle Moore, Loki, H. (2015). Chapter 7: Glucose and Lactate. Marianela Alcocer al.(eds.), Cerebrospinal Fluid in Clinical Neurology. [place]: [employer]. Performed By: #### 2 342-4, 2880-3 ####[facility]ORATORYCLIA [id number] [place] [address] [place] NUTRITIONon 07-27-2021 NUTRITION Normal [facility] Prot CSF-mCncon 07-27-2021 Protein (CSF) [Mass/Vol] 58 mg/dL High 15-45 [facility] Comment on above: Order Comment: Speci men Type: CEREBROSPINAL FLUIDOrdering Facility: [facility] Address: [address] [place] [address] Performed By: #### 2 342-4, 2880-3 ####[facility]ORATORYCLIA [id number] [address] [place] aPTT PPPon 07-27-2021 aPTT Coag (PPP) [Time] 68.4 s High 23.0-32.[address] [facility] Comment on above: Order Comment: Speci men Type: BLOOD SPECIMENOrdering Facility: [facility] Address: [address] [place] [address] Performed By: #### 1 4979-9 ####[facility]ORATORYCLIA [id number] [address] aPTT Coag (PPP) [Time] 51.3 s High 23.0-32.[address] [facility] Comment on above: Order Comment: Speci men Type: BLOOD SPECIMENOrdering Facility: [facility] Address: [address] [place] [address] Performed By: #### 1 4979-9 ####[facility]ORATORYCLIA [id number] [address] ALLIED HEALTHon 07-26-2021 ALLIED HEALTH HNO ID: [id number] Author: Stephanie Maldonado, bill hiker Service: Radiology Author Type: Livestock Yard Attendant Type: Allied Health Filed: 07/26/2021 4:10 PM Note Text: Spoke with nurse. Pt getting new EVD today. Try tomorrow. Normal [facility] Bacteria CSF Culton 07-27-19 Bacteria identified Cx Nom (CSF) Abnormal [facility] Comment on above: Performed By: #### 6 06-4 ####[facility]ORATORYCLIA [id number] [address] STATES OF [facility] Basic metabolic 2000 panelon 07-26-2021 Anion gap [Moles/Vol] 6 mmol/L Low 9-18 [facility] Comment on above: Order Comment: Speci men Type: BLOOD SPECIMENOrdering Facility: [facility] Address: [address] [place] [address] Performed By: #### 2 4321-2 ####[facility]ATORYCLIA [id number] [address] Calcium [Mass/Vol] 9.2 mg/dL Normal 8.5-10.2 [facility] Comment on above: Order Comment: Speci men Type: BLOOD SPECIMENOrdering Facility: [facility] Address: [address] [place] [address] Performed By: #### 2 4321-2 ####[facility]ORATORYCLIA [id number] [place] [address] [place] Chloride [Moles/Vol] 99 mmol/L Normal 97-105 [facility] Comment on above: Order Comment: Speci men Type: BLOOD SPECIMENOrdering Facility: [facility] Address: [address] [place] [address] Performed By: #### 2 4321-2 ####[facility]ORATORYCLIA [id number] [place] [address] [place] CO2 [Moles/Vol] 32 mmol/L High 22-30 [facility] Comment on above: Order Comment: Speci men Type: BLOOD SPECIMENOrdering Facility: [facility] Address: [address] [place] [address] Performed By: #### 2 4321-2 ####[facility]ORATORYCLIA [id number] [address] [place] Creatinine [Mass/Vol] 0.74 mg/dL Normal 0.73-1.22 [facility] Comment on above: Order Comment: Speci men Type: BLOOD SPECIMENOrdering Facility: [facility] Address: [address] [place] [address] Performed By: #### 2 4321-2 ####[facility]ORATORYCLIA [id number] [address] [place] ESTIMATED GLOMERULAR FILTRATION RATE 98 mL/min/1.73m??? Normal >=60 [facility] Comment on above: Order Comment: Speci men Type: BLOOD SPECIMENOrdering Facility: [facility] Address: [address] [place] [address] Result Comment: Luzmaria mated Glomerular Filtration Rate [...] 4321-2 ####[facility]ORATORYCLIA [id number] [place] [address] [place] Glucose [Mass/Vol] 126 mg/dL High 74-99 [facility] Comment on above: Order Comment: Speci men Type: BLOOD SPECIMENOrdering Facility: [facility] Address: [address] [place], [place] [id number] Result Comment: The [place] Diabetes Association (ADA) provides guidance for cutoff [...] Standards of Medical Care in Diabetes 2016, [place] Diabetes Association. Diabetes Care. 2016.39(Suppl 1). Performed By: #### 2 4321-2 ####[facility]ATORYCLIA [id number] [place] [address] [place] Potassium [Moles/Vol] 4.2 mmol/L Normal 3.7-5.1 [facility] Comment on above: Order Comment: Speci men Type: BLOOD SPECIMENOrdering Facility: [facility] Address: [address] [place] [address] Performed By: #### 2 4321-2 ####[facility]ORATORYCLIA [id number] [place] [address] [place] Sodium [Moles/Vol] 137 mmol/L Normal 136-144 [facility] Comment on above: Order Comment: Speci men Type: BLOOD SPECIMENOrdering Facility: [facility] Address: [address] [place] [address] Performed By: #### 2 4321-2 ####[facility]ORATORYCLIA [id number] [address] STATES [facility] Urea nitrogen [Mass/Vol] 36 mg/dL High 9-24 [facility] Comment on above: Order Comment: Speci men Type: BLOOD SPECIMENOrdering Facility: [facility] Address: [address] [place] [address] Performed By: #### 2 4321-2 ####[facility]ORATORYCLIA [id number] [address] [place] CBC W Auto Differential pane l (Bld)on 07-26-2021 Basophils (Bld) [#/Vol] 0.04 10*3/uL Normal <0.11 [facility] Comment on above: Order Comment: Speci men Type: BLOOD SPECIMENOrdering Facility: [facility] Address: [address] [place] [address] Performed By: #### 5 7021-8 ####[facility]ORATORYCLIA [id number] [address] [place] Basophils/100 WBC (Bld) 0.4 % Normal [facility] Comment on above: Order Comment: Speci men Type: BLOOD SPECIMENOrdering Facility: [facility] Address: [address] [place] [address] Performed By: #### 5 7021-8 ####[facility]ORATORYCLIA [id number] [address] STATES [facility] Differential cell count method Nom (Bld) Auto Normal [facility] Comment on above: Order Comment: Speci men Type: BLOOD SPECIMENOrdering Facility: [facility] Address: [address] [place] [address] Performed By: #### 5 7021-8 ####[facility]ATORYCLIA [id number] [place] [address] [place] Eosinophils (Bld) [#/Vol] 0.63 10*3/uL High <0.46 [facility] Comment on above: Order Comment: Speci men Type: BLOOD SPECIMENOrdering Facility: [facility] Address: [address] [place] [address] Performed By: #### 5 7021-8 ####[facility]ORATORYCLIA [id number] [address] STATES [facility] Eosinophils/100 WBC (Bld) 5.8 % Normal [facility] Comment on above: Order Comment: Speci men Type: BLOOD SPECIMENOrdering Facility: [facility] Address: [address] [place] [address] Performed By: #### 5 7021-8 ####[facility]ORATORYCLIA [id number] [address] [place] Erythrocyte distribution width (RBC) [Ratio] 16.8 % High 11.5-15.0 [facility] Comment on above: Order Comment: Speci men Type: BLOOD SPECIMENOrdering Facility: [facility] Address: [address] [place] [address] Performed By: #### 5 7021-8 ####[facility]ORATORYCLIA [id number] [address] STATES OF [facility] Hematocrit (Bld) [Volume fraction] 31.2 % Low 39.0-51.0 [facility] Comment on above: Order Comment: Speci men Type: BLOOD SPECIMENOrdering Facility: [facility] Address: [address] [place] [address] Performed By: #### 5 7021-8 ####[facility]ORATORYCLIA [id number] [address] [place] Hemoglobin (Bld) [Mass/Vol] 9.1 g/dL Low 13.0-17.0 [facility] Comment on above: Order Comment: Speci men Type: BLOOD SPECIMENOrdering Facility: [facility] Address: [address] [place] [address] Performed By: #### 5 7021-8 ####[facility]ORATORYCLIA [id number] [address] IMMATURE GRAN % 0.6 % Normal [facility] Comment on above: Order Comment: Speci men Type: BLOOD SPECIMENOrdering Facility: [facility] Address: [address] [place] [address] Performed By: #### 5 7021-8 ####[facility]ATORYCLIA [id number] [address] IMMATURE GRAN ABS 0.07 k/uL Normal <0.10 [facility] Comment on above: Order Comment: Speci men Type: BLOOD SPECIMENOrdering Facility: [facility] Address: [address] [place] [address] Performed By: #### 5 7021-8 ####[facility]ORATORYCLIA [id number] [address] STATES [facility] Lymphocytes (Bld) [#/Vol] 2.16 10*3/uL Normal 1.00-4.00 [facility] Comment on above: Order Comment: Speci men Type: BLOOD SPECIMENOrdering Facility: [facility] Address: [address] [place] [address] Performed By: #### 5 7021-8 ####[facility]ORATORYCLIA [id number] [address] Lymphocytes/100 WBC (Bld) 20.0 % Normal [facility] Comment on above: Order Comment: Speci men Type: BLOOD SPECIMENOrdering Facility: [facility] Address: [address] [place] [address] Performed By: #### 5 7021-8 ####[facility]ORATORYCLIA [id number] [address] STATES [facility] MCH (RBC) [Entitic mass] 27.7 pg Normal 26.0-34.0 [facility] Comment on above: Order Comment: Speci men Type: BLOOD SPECIMENOrdering Facility: [facility] Address: [address] [place] [address] Performed By: #### 5 7021-8 ####[facility]ATORYCLIA [id number] [address] STATES [facility] MCHC (RBC) [Mass/Vol] 29.2 g/dL Low 30.5-36.0 [facility] Comment on above: Order Comment: Speci men Type: BLOOD SPECIMENOrdering Facility: [facility] Address: [address] [place] [address] Performed By: #### 5 7021-8 ####[facility]ORATORYCLIA [id number] [address] [place] MCV (RBC) [Entitic vol] 95.1 fL Normal 80.0-100.0 [facility] Comment on above: Order Comment: Speci men Type: BLOOD SPECIMENOrdering Facility: [facility] Address: [address] [place] [address] Performed By: #### 5 7021-8 ####[facility]ORATORYCLIA [id number] [address] STATES OF [facility] Monocytes (Bld) [#/Vol] 0.63 10*3/uL Normal <0.87 [facility] Comment on above: Order Comment: Speci men Type: BLOOD SPECIMENOrdering Facility: [facility] Address: [address] [place] [address] Performed By: #### 5 7021-8 ####[facility]ATORYCLIA [id number] [address] Monocytes/100 WBC (Bld) 5.8 % Normal [facility] Comment on above: Order Comment: Speci men Type: BLOOD SPECIMENOrdering Facility: [facility] Address: [address] [place] [address] Performed By: #### 5 7021-8 ####[facility]ORATORYCLIA [id number] [address] [place] Neutrophils (Bld) [#/Vol] 7.25 10*3/uL Normal 1.45-7.50 [facility] Comment on above: Order Comment: Speci men Type: BLOOD SPECIMENOrdering Facility: [facility] Address: [address] [place] [address] Performed By: #### 5 7021-8 ####[facility]ATORYCLIA [id number] [address] Neutrophils/100 WBC (Bld) 67.4 % Normal [facility] Comment on above: Order Comment: Speci men Type: BLOOD SPECIMENOrdering Facility: [facility] Address: [address] [place] [address] Performed By: #### 5 7021-8 ####[facility]ORATORYCLIA [id number] [address] [place] Nucleated RBC (Bld) [#/Vol] 10*3/uL Normal <0.01 [facility] Comment on above: Order Comment: Speci men Type: BLOOD SPECIMENOrdering Facility: [facility] Address: [address] [place] [address] Performed By: #### 5 7021-8 ####[facility]ATORYCLIA [id number] [address] Nucleated RBC/100 WBC (Bld) [Ratio] 0.0 /100 WBC Normal [facility] Comment on above: Order Comment: Speci men Type: BLOOD SPECIMENOrdering Facility: [facility] Address: [address] [place] [address] Performed By: #### 5 7021-8 ####[facility]ATORYCLIA [id number] [address] [place] Platelet mean volume (Bld) [Entitic vol] 11.2 fL Normal 9.0-12.7 [facility] Comment on above: Order Comment: Speci men Type: BLOOD SPECIMENOrdering Facility: [facility] Address: [address] [place] [address] Performed By: #### 5 7021-8 ####[facility]ORATORYCLIA [id number] [address] STATES OF [facility] Platelets (Bld) [#/Vol] 245 10*3/uL Normal 150-400 [facility] Comment on above: Order Comment: Speci men Type: BLOOD SPECIMENOrdering Facility: [facility] Address: [address] [place] [address] Performed By: #### 5 7021-8 ####[facility]ORATORYCLIA [id number] [place] [address] [place] RBC (Bld) [#/Vol] 3.28 10*6/uL Low 4.20-6.00 [facility] Comment on above: Order Comment: Speci men Type: BLOOD SPECIMENOrdering Facility: [facility] Address: [address] [place] [address] Performed By: #### 5 7021-8 ####[facility]ATORYCLIA [id number] [address] STATES OF [facility] WBC (Bld) [#/Vol] 10.78 10*3/uL Normal 3.70-11.00 [facility] Comment on above: Order Comment: Speci men Type: BLOOD SPECIMENOrdering Facility: [facility] Address: [address] [place] [address] Performed By: #### 5 7021-8 ####[facility]ORATORYCLIA [id number] [address] STATES OF [facility] CSF MANUAL DIFFon 07-26-2021 DIF TTL, CSF 100 cells counted Normal [facility] Comment on above: Order Comment: Speci men Type: CEREBROSPINAL FLUIDOrdering Facility: [facility] Address: [address] [place] [address] Performed By: #### 3 4563-7, [id number], [id number] ####[facility]ATORYCLIA [id number] [address] [place] LYMPH%, CSF 26 % Low 50-90 [facility] Comment on above: Order Comment: Speci men Type: CEREBROSPINAL FLUIDOrdering Facility: [facility] Address: [address] [address] Performed By: #### 3 4563-7, [id number], [id number] ####[facility]ORATORYCLIA [id number] [place] [address] [place] MACRO%, CSF 10 % High <1 [facility] Comment on above: Order Comment: Speci men Type: CEREBROSPINAL FLUIDOrdering Facility: [facility] Address: [address] [place] [address] Performed By: #### 3 4563-7, [id number], [id number] ####[facility]ORATORYCLIA [id number] [place] [address] [place] MONO%, CSF 20 % Normal 10-50 [facility] Comment on above: Order Comment: Speci men Type: CEREBROSPINAL FLUIDOrdering Facility: [facility] Address: [address] [place] [address] Performed By: #### 3 4563-7, [id number], [id number] ####[facility]ORATORYCLIA [id number] [place] [address] [place] NEUT%, CSF 40 % High 0-3 [facility] Comment on above: Order Comment: Speci men Type: CEREBROSPINAL FLUIDOrdering Facility: [facility] Address: [address] [place] [address] Performed By: #### 3 4563-7, [id number], [id number] ####[facility]ATORYCLIA [id number] [address] [place] OTHER CL%, CSF 2 % Normal [facility] Comment on above: Order Comment: Speci men Type: CEREBROSPINAL FLUIDOrdering Facility: [facility] Address: [address] [place] [address] Result Comment: Path review to follow. Performed By: #### 3 4563-7, [id number], [id number] ####[facility]ATORYCLIA [id number] [place] [address] [place] REAC LYMPH %, CSF 2 % Normal [facility] Comment on above: Order Comment: Speci men Type: CEREBROSPINAL FLUIDOrdering Facility: [facility] Address: [address] [place] [address] Performed By: #### 3 4563-7, [id number], [id number] ####[facility]ATORYCLIA [id number] [address] [place] CSF PATHOLOGIST INTERP (LAB REFLEX ORDER-NO BILL)on 07-26-2021 CSF STAFF REVIEW Negative for maligna nt cells. Rare bacteria present, cocci in pairs and chains. Correlation with CSF cultures is recommended. Normal [facility] Comment on above: Order Comment: Speci men Type: CEREBROSPINAL FLUIDOrdering Facility: [facility] Address: [address] [place] [address] Performed By: #### 3 4563-7, [id number], [id number] ####[facility] LABORATORYCLIA [id number] [address] Pathologist name Reviewed by Amador Stevens MD [facility] Comment on above: Order Comment: Speci men Type: CEREBROSPINAL FLUIDOrdering Facility: [facility] Address: [address] [place] [address] Performed By: #### 3 4563-7, [id number], [id number] ####[facility] LABORATORYCLIA [id number] [address] Cell count panel (CSF)on Clarity (CSF) Slightly Cloudy Abnormal Clear [facility] Comment on above: Order Comment: Speci men Type: CEREBROSPINAL FLUIDOrdering Facility: [facility] Address: [address] [place] [address] Performed By: #### 3 4563-7, [id number], [id number] ####[facility] LABORATORYCLIA [id number] [address] [place] Clarity (Unsp spec) Clear Normal Clear [facility] Comment on above: Order Comment: Speci men Type: CEREBROSPINAL FLUIDOrdering Facility: [facility] Address: [address] [address] Performed By: #### 3 4563-7, [id number], [id number] ####[facility]ORATORYCLIA [id number] [address] Color (CSF) Colorless Normal Colorless [facility] Comment on above: Order Comment: Speci men Type: CEREBROSPINAL FLUIDOrdering Facility: [facility] Address: [facility] [place] [address] Performed By: #### 3 4563-7, [id number], [id number] ####[facility] LABORATORYCLIA [id number] [address] Color (Spun CSF) Not Indicated Normal Colorless [facility] Comment on above: Order Comment: Speci men Type: CEREBROSPINAL FLUIDOrdering Facility: [facility] Address: [address] [place] [address] Performed By: #### 3 4563-7, [id number], [id number] ####[facility] LABORATORYCLIA [id number] [address] CSF TUBE NUMBER [employer] Normal [facility] Comment on above: Order Comment: Speci men Type: CEREBROSPINAL FLUIDOrdering Facility: [facility] Address: [address] [place] [address] Performed By: #### 3 4563-7, [id number], [id number] ####[facility] LABORATORYCLIA [id number] [address] RBC Manual cnt (CSF) [#/Vol] 1 cells/uL Normal 0-5 [facility] Comment on above: Order Comment: Speci men Type: CEREBROSPINAL FLUIDOrdering Facility: [facility] Address: [facility] [place] [address] Performed By: #### 3 4563-7, [id number], [id number] ####[facility]ORATORYCLIA [id number] [address] WBC Manual cnt (CSF) [#/Vol] 50 cells/uL High 0-5 [facility] Comment on above: Order Comment: Speci men Type: CEREBROSPINAL FLUIDOrdering Facility: [facility] Address: [address] [place] [address] Performed By: #### 3 4563-7, [id number], [id number] ####[facility] LABORATORYCLIA [id number] [place] [address] [place] [facility] Glucose CSF-ncon Glucose (CSF) [Mass/Vol] 64 mg/dL Normal 40-70 [facility] Comment on above: Order Comment: Speci men Type: CEREBROSPINAL FLUIDOrdering Facility: [facility] Address: [address] [place] [address] Result Comment: Lumb ar CSF glucose values of healthy patients are approximately 60% of the plasma values and must always be compared with a concurrently measured plasma value for adequate clinical interpretation.References: 1. Glucose HK (GLUC3) [package insert V 12.0 [place]]. [employer], [place], [place]. September 2015. 2. Michelle Moore, Loki HGarfield (2015). Chapter 7: Glucose and Lactate. F. Irina rose al.(eds.), Cerebrospinal Fluid in Clinical Neurology. [place]: [employer]. Performed By: #### 2 880-3, 2342-4 ####[facility] LABORATORYCLIA [id number] [place] [address] [place] Magnesium SerPl-ncon 07-26 Magnesium [Mass/Vol] 2.3 mg/dL Normal 1.7-2.3 [facility] Comment on above: Order Comment: Speci men Type: BLOOD SPECIMENOrdering Facility: [facility] Address: [address] [place] [address] Performed By: #### 1 9123-9, 2777-1, 3016-3 ####[facility] LABORATORYCLIA [id number] [place] [address] [place] NURSING PROGon 07-26-2021 NURSING PROG Normal [facility] Phosphate SerPl-ncon 07-26 Phosphate [Mass/Vol] 2.6 mg/dL Low 2.7-4.8 [facility] Comment on above: Order Comment: Speci men Type: BLOOD SPECIMENOrdering Facility: [facility] Address: [address] [place] [address] Performed By: #### 1 9123-9, 2777-1, 3016-3 ####[facility] LABORATORYCLIA [id number] [place] [address] [place] Prot CSF-mCncon 07-26-2021 Protein (CSF) [Mass/Vol] 64 mg/dL High 15-45 [facility] Comment on above: Order Comment: Speci men Type: CEREBROSPINAL FLUIDOrdering Facility: [facility] Address: [address] [place] [address] Performed By: #### 2 880-3, 2342-4 ####[facility] LABORATORYCLIA [id number] [address] OF [facility] THERAPY NTon 07-26-2021 THERAPY NT Normal [facility] TSH SerPl-aCncon 07-26-2021 TSH Qn 1.470 m[IU]/L Normal 0.270-4.200 [facility] Comment on above: Order Comment: Speci men Type: BLOOD SPECIMENOrdering Facility: [facility] Address: [address] [place] [address] Performed By: #### 1 9123-9, 2777-1, 3016-3 ####[facility] LABORATORYCLIA [id number] [address] [place] VITAMIN B12 BLOODon 07-27-19 Cobalamin (Vitamin B12) [Mass/Vol] 934 pg/mL Normal 232-1,245 [facility] Comment on above: Order Comment: Speci men Type: BLOOD SPECIMENOrdering Facility: [facility] Address: [address] [place] [address] Performed By: #### B 12 ####[facility] LABORATORYCLIA [id number] [address] [place] aPTT PPPon 07-26-2021 aPTT Coag (PPP) [Time] 53.6 s High 23.0-32.[address] [facility] Comment on above: Order Comment: Speci men Type: BLOOD SPECIMENOrdering Facility: [facility] Address: [address] [place] [address] Performed By: #### 1 4979-9 ####[facility] LABORATORYCLIA [id number] [address] aPTT Coag (PPP) [Time] 44.9 s High 23.0-32.[address] [facility] Comment on above: Order Comment: Speci men Type: BLOOD SPECIMENOrdering Facility: [facility] Address: [address] [place] [address] Performed By: #### 1 4979-9 ####[facility] LABORATORYCLIA [id number] [address] ALLIED HEALTHon 07-25-2021 ALLIED HEALTH HNO ID: [id number] Author: RT Rajwinder(R) Service: Radiology Author Type: Technologist Type: Allied Health Filed: 07/25/2021 1:37 PM Note Text: Called floor for MRI screening form [id number] Normal [facility] Bacteria Bld Culton 07-26-19 Bacteria identified Cx Nom (Bld) CULTURE, BLOOD: No growth 5 days Normal [facility] Comment on above: Performed By: #### 6 00-7 ####[facility] LABORATORYCLIA [id number] [address] Bacteria identified Cx Nom (Bld) CULTURE, BLOOD: No growth 5 days Normal [facility] Comment on above: Performed By: #### 6 00-7 ####[facility] LABORATORYCLIA [id number] [address] CASE MANAGEMon 07-25-2021 CASE MANAGEM Normal [facility] CBC W Auto Differential pane l (Bld)on 07-25-2021 Basophils (Bld) [#/Vol] 0.06 10*3/uL Normal <0.11 [facility] Comment on above: Order Comment: Speci men Type: BLOOD SPECIMENOrdering Facility: [facility] Address: [address] [place] [address] Performed By: #### 5 7021-8 ####[facility] LABORATORYCLIA [id number] [place] [address] [place] Basophils/100 WBC (Bld) 0.6 % Normal [facility] Comment on above: Order Comment: Speci men Type: BLOOD SPECIMENOrdering Facility: [facility] Address: [address] [place] [address] Performed By: #### 5 7021-8 ####[facility] LABORATORYCLIA [id number] [address] [place] Differential cell count method Nom (Bld) Auto Normal [facility] Comment on above: Order Comment: Speci men Type: BLOOD SPECIMENOrdering Facility: [facility] Address: [address] [place] [address] Performed By: #### 5 7021-8 ####[facility]ORATORYCLIA [id number] [address] [place] Eosinophils (Bld) [#/Vol] 0.26 10*3/uL Normal <0.46 [facility] Comment on above: Order Comment: Speci men Type: BLOOD SPECIMENOrdering Facility: [facility] Address: [address] [place] [address] Performed By: #### 5 7021-8 ####[facility]ORATORYCLIA [id number] [address] [place] Eosinophils/100 WBC (Bld) 2.5 % Normal [facility] Comment on above: Order Comment: Speci men Type: BLOOD SPECIMENOrdering Facility: [facility] Address: [address] [place] [address] Performed By: #### 5 7021-8 ####[facility]ORATORYCLIA [id number] [address] Erythrocyte distribution width (RBC) [Ratio] 16.9 % High 11.5-15.0 [facility] Comment on above: Order Comment: Speci men Type: BLOOD SPECIMENOrdering Facility: [facility] Address: [address] [place] [address] Performed By: #### 5 7021-8 ####[facility] LABORATORYCLIA [id number] [address] OF [facility] Hematocrit (Bld) [Volume fraction] 29.6 % Low 39.0-51.0 [facility] Comment on above: Order Comment: Speci men Type: BLOOD SPECIMENOrdering Facility: [facility] Address: [address] [place] [address] Performed By: #### 5 7021-8 ####[facility] LABORATORYCLIA [id number] [address] STATES OF [facility] Hemoglobin (Bld) [Mass/Vol] 8.8 g/dL Low 13.0-17.0 [facility] Comment on above: Order Comment: Speci men Type: BLOOD SPECIMENOrdering Facility: [facility] Address: [address] [place] [address] Performed By: #### 5 7021-8 ####[facility] LABORATORYCLIA [id number] [address] [place] IMMATURE GRAN % 0.6 % Normal [facility] Comment on above: Order Comment: Speci men Type: BLOOD SPECIMENOrdering Facility: [facility] Address: [address] [place] [address] Performed By: #### 5 7021-8 ####[facility] LABORATORYCLIA [id number] [address] IMMATURE GRAN ABS 0.06 k/uL Normal <0.10 [facility] Comment on above: Order Comment: Speci men Type: BLOOD SPECIMENOrdering Facility: [facility] Address: [address] [place] [address] Performed By: #### 5 7021-8 ####[facility] LABORATORYCLIA [id number] [address] [place] Lymphocytes (Bld) [#/Vol] 2.15 10*3/uL Normal 1.00-4.00 [facility] Comment on above: Order Comment: Speci men Type: BLOOD SPECIMENOrdering Facility: [facility] Address: [address] [place] [address] Performed By: #### 5 7021-8 ####[facility] LABORATORYCLIA [id number] [address] Lymphocytes/100 WBC (Bld) 20.7 % Normal [facility] Comment on above: Order Comment: Speci men Type: BLOOD SPECIMENOrdering Facility: [facility] Address: [address] [place] [address] Performed By: #### 5 7021-8 ####[facility] LABORATORYCLIA [id number] [address] MCH (RBC) [Entitic mass] 28.2 pg Normal 26.0-34.0 [facility] Comment on above: Order Comment: Speci men Type: BLOOD SPECIMENOrdering Facility: [facility] Address: [address] [place] [address] Performed By: #### 5 7021-8 ####[facility] LABORATORYCLIA [id number] [address] STATES OF [facility] MCHC (RBC) [Mass/Vol] 29.7 g/dL Low 30.5-36.0 [facility] Comment on above: Order Comment: Speci men Type: BLOOD SPECIMENOrdering Facility: [facility] Address: [address] [place] [address] Performed By: #### 5 7021-8 ####[facility] LABORATORYCLIA [id number] [address] STATES OF [facility] MCV (RBC) [Entitic vol] 94.9 fL Normal 80.0-100.0 [facility] Comment on above: Order Comment: Speci men Type: BLOOD SPECIMENOrdering Facility: [facility] Address: [address] [place] [address] Performed By: #### 5 7021-8 ####[facility] LABORATORYCLIA [id number] [address] [place] Monocytes (Bld) [#/Vol] 0.62 10*3/uL Normal <0.87 [facility] Comment on above: Order Comment: Speci men Type: BLOOD SPECIMENOrdering Facility: [facility] Address: [address] [place] [address] Performed By: #### 5 7021-8 ####[facility] LABORATORYCLIA [id number] [address] Monocytes/100 WBC (Bld) 6.0 % Normal [facility] Comment on above: Order Comment: Speci men Type: BLOOD SPECIMENOrdering Facility: [facility] Address: [address] [place] [address] Performed By: #### 5 7021-8 ####[facility] LABORATORYCLIA [id number] [address] [place] Neutrophils (Bld) [#/Vol] 7.25 10*3/uL Normal 1.45-7.50 [facility] Comment on above: Order Comment: Speci men Type: BLOOD SPECIMENOrdering Facility: [facility] Address: [address] [place] [address] Performed By: #### 5 7021-8 ####[facility]ORATORYCLIA [id number] [address] [place] Neutrophils/100 WBC (Bld) 69.6 % Normal [facility] Comment on above: Order Comment: Speci men Type: BLOOD SPECIMENOrdering Facility: [facility] Address: [address] [place] [address] Performed By: #### 5 7021-8 ####[facility] LABORATORYCLIA [id number] [place] [address] [place] Nucleated RBC (Bld) [#/Vol] 10*3/uL Normal <0.01 [facility] Comment on above: Order Comment: Speci men Type: BLOOD SPECIMENOrdering Facility: [facility] Address: [address] [place] [address] Performed By: #### 5 7021-8 ####[facility] LABORATORYCLIA [id number] [place] [address] [place] Nucleated RBC/100 WBC (Bld) [Ratio] 0.0 /100 WBC Normal [facility] Comment on above: Order Comment: Speci men Type: BLOOD SPECIMENOrdering Facility: [facility] Address: [address] [place] [address] Performed By: #### 5 7021-8 ####[facility] LABORATORYCLIA [id number] [place] [address] [place] Platelet mean volume (Bld) [Entitic vol] 11.3 fL Normal 9.0-12.7 [facility] Comment on above: Order Comment: Speci men Type: BLOOD SPECIMENOrdering Facility: [facility] Address: [address] [place] [address] Performed By: #### 5 7021-8 ####[facility] LABORATORYCLIA [id number] [place] [address] [place] Platelets (Bld) [#/Vol] 243 10*3/uL Normal 150-400 [facility] Comment on above: Order Comment: Speci men Type: BLOOD SPECIMENOrdering Facility: [facility] Address: [address] Performed By: #### 5 7021-8 ####[facility] LABORATORYCLIA [id number] [place] [address] [place] RBC (Bld) [#/Vol] 3.12 10*6/uL Low 4.20-6.00 [facility] Comment on above: Order Comment: Speci men Type: BLOOD SPECIMENOrdering Facility: [facility] Address: [address] [place] [address] Performed By: #### 5 7021-8 ####[facility] LABORATORYCLIA [id number] [place] [address] [place] WBC (Bld) [#/Vol] 10.40 10*3/uL Normal 3.70-11.00 [facility] Comment on above: Order Comment: Speci men Type: BLOOD SPECIMENOrdering Facility: [facility] Address: [address] [place] [address] Performed By: #### 5 7021-8 ####[facility] LABORATORYCLIA [id number] [address] [place] CONSULT PROGon 07-25-2021 CONSULT PROG Normal [facility] MYCOPLASMA PNEUM IGMon 07-25 M. PNEUMO IGM, QUAL Negative Normal Negative [facility] Comment on above: Order Comment: Speci [facility] Type: BLOOD SPECIMENOrdering Facility: [facility] Address: [address] [place] [address] Result Comment: Myco plasma pneumoniae IgM antibody test is used as an aid in diagnosis of recent infection with M. pneumoniae. It may occasionally remain elevated for extended periods after an acute infection. Cannot exclude recent infection if the specimen collected 7-10 days after onset of signs and symptoms. Clinical correlation is required. Performed By: #### M YCOPM ####[facility] LABCLIA [id number] [facility]ENTERDES [id number] [place] NURSING PROGon 07-25-2021 NURSING PROG Normal [facility] THERAPY NTon 07-25-2021 THERAPY NT Normal [facility] THERAPY NT Normal [facility] aPTT PPPon 07-25-2021 aPTT Coag (PPP) [Time] 62.6 s High 23.0-32.[address] [facility] Comment on above: Order Comment: Speci men Type: BLOOD SPECIMENOrdering Facility: [facility] Address: [address] [place] [address] Performed By: #### 1 4979-9 ####[facility] LABORATORYCLIA [id number] [place] [address] [place] Bacteria Ur Culton 2 Bacteria identified Cx Nom (U) CULTURE, URINE: No growth (<100 CFU/ml) Normal [facility] Comment on above: Performed By: #### 6 30-4 ####[facility] LABORATORYCLIA [id number] [place] [address] [place] Basic metabolic 2000 panelon 07-24-2021 Anion gap [Moles/Vol] 13 mmol/L Normal 9-18 [facility] Comment on above: Order Comment: Speci men Type: BLOOD SPECIMENOrdering Facility: [facility] Address: [address] [place] [address] Performed By: #### 1 9123-9, KATIE, 2776-05, 50539-4 ####[facility] LABORATORYCLIA [id number] [place] [address] [place] Calcium [Mass/Vol] 9.5 mg/dL Normal 8.5-10.2 [facility] Comment on above: Order Comment: Speci men Type: BLOOD SPECIMENOrdering Facility: [facility] Address: [address] [place] [address] Performed By: #### 1 9123-9, KATIE, 2776-05, 95701-1 ####[facility] LABORATORYCLIA [id number] [place] [address] [place] Chloride [Moles/Vol] 102 mmol/L Normal 97-105 [facility] Comment on above: Order Comment: Speci men Type: BLOOD SPECIMENOrdering Facility: [facility] Address: [address] [address] Performed By: #### 1 9123-9, KATIE, 2776-05, ####[facility] LABORATORYCLIA [id number] [place] [address] [place] CO2 [Moles/Vol] 28 mmol/L Normal 22-30 [facility] Comment on above: Order Comment: Speci men Type: BLOOD SPECIMENOrdering Facility: [facility] Address: [address] [place] [address] Performed By: #### 1 9123-9, PROCAL, 2777-1, 90861-0 ####[facility]ENTERIA [id number] [address] [place] Creatinine [Mass/Vol] 0.86 mg/dL Normal 0.73-1.22 [facility] Comment on above: Order Comment: Speci men Type: BLOOD SPECIMENOrdering Facility: [facility] Address: [address] [place] [address] Performed By: #### 1 9123-9, [facility], 277-, 22753-3 ####[facility] CENTERIA [id number] [address] [place] ESTIMATED GLOMERULAR FILTRATION RATE 94 mL/min/1.73m??? Normal >=60 [facility] Comment on above: Order Comment: Speci men Type: BLOOD SPECIMENOrdering Facility: [facility] Address: [address] [place] [address] Result Comment: Luzmaria mated Glomerular Filtration Rate [...] Performed By: #### 1 9123-9, PROCAL, 2777-1, 12784-5 ####[facility] CENTERIA [id number] [address] [place] Glucose [Mass/Vol] 148 mg/dL High 74-99 [facility] Comment on above: Order Comment: Speci men Type: BLOOD SPECIMENOrdering Facility: [facility] Address: [address] [address] Result Comment: The [place] Diabetes Association (ADA) provides guidance for cutoff [...] Standards of Medical Care in Diabetes 2016, [place] [employer] Association. Diabetes Care. 2016.39(Suppl 1). Performed By: #### 1 9123-9, PROCAL, 2776-, 62505-0 ####[facility] LABORATORYCLIA [id number] [place] [address] [place] Potassium [Moles/Vol] 4.0 mmol/L Normal 3.7-5.1 [facility] Comment on above: Order Comment: Shira feldman Type: BLOOD SPECIMENOrdering Facility: [facility] Address: [address] [place] [address] Performed By: #### 1 9123-9, [facility], 2776-05, 06996-3 ####[facility]PITALCLIA [id number] [place] [address] [place] Sodium [Moles/Vol] 143 mmol/L Normal 136-144 [facility] Comment on above: Order Comment: Shira feldman Type: BLOOD SPECIMENOrdering Facility: [facility] Address: [address] [place] [address] Performed By: #### 1 9123-9, PROCVT, 2776-05, 02602-5 ####[facility] LABORATORYCLIA [id number] [place] [address] [place] Urea nitrogen [Mass/Vol] 38 mg/dL High 9-24 [facility] Comment on above: Order Comment: Shira feldman Type: BLOOD SPECIMENOrdering Facility: [facility] Address: [address] [address] Performed By: #### 1 9123-9, PROCAL, 7-, 19474-2 ####[facility] LABORATORYCLIA [id number] [place] [address] [place] CBC W Auto Differential pane l (Bld)on 07-24-2021 Basophils (Bld) [#/Vol] 0.06 10*3/uL Normal <0.11 [facility] Comment on above: Order Comment: Speci men Type: BLOOD SPECIMENOrdering Facility: [facility] Address: [address] [place] [address] Performed By: #### 5 7021-8 ####[facility] LABORATORYCLIA [id number] [address] STATES [facility] Basophils/100 WBC (Bld) 0.6 % Normal [facility] Comment on above: Order Comment: Speci men Type: BLOOD SPECIMENOrdering Facility: [facility] Address: [address] [place] [address] Performed By: #### 5 7021-8 ####[facility] LABORATORYCLIA [id number] [address] Differential cell count method Nom (Bld) Auto Normal [facility] Comment on above: Order Comment: Speci men Type: BLOOD SPECIMENOrdering Facility: [facility] Address: [address] [place] [address] Performed By: #### 5 7021-8 ####[facility] LABORATORYCLIA [id number] [address] [place] Eosinophils (Bld) [#/Vol] 0.03 10*3/uL Normal <0.46 [facility] Comment on above: Order Comment: Speci men Type: BLOOD SPECIMENOrdering Facility: [facility] Address: [address] [place] [address] Performed By: #### 5 7021-8 ####[facility] LABORATORYCLIA [id number] [address] Eosinophils/100 WBC (Bld) 0.3 % Normal [facility] Comment on above: Order Comment: Speci men Type: BLOOD SPECIMENOrdering Facility: [facility] Address: [address] [address] Performed By: #### 5 7021-8 ####[facility] LABORATORYCLIA [id number] [address] Erythrocyte distribution width (RBC) [Ratio] 17.0 % High 11.5-15.0 [facility] Comment on above: Order Comment: Speci men Type: BLOOD SPECIMENOrdering Facility: [facility] Address: [address] [place] [address] Performed By: #### 5 7021-8 ####[facility] LABORATORYCLIA [id number] [address] Hematocrit (Bld) [Volume fraction] 30.5 % Low 39.0-51.0 [facility] Comment on above: Order Comment: Speci men Type: BLOOD SPECIMENOrdering Facility: [facility] Address: [address] [place] [address] Performed By: #### 5 7021-8 ####[facility] LABORATORYCLIA [id number] [address] Hemoglobin (Bld) [Mass/Vol] 9.0 g/dL Low 13.0-17.0 [facility] Comment on above: Order Comment: Speci men Type: BLOOD SPECIMENOrdering Facility: [facility] Address: [address] [place] [address] Performed By: #### 5 7021-8 ####[facility]ORATORYCLIA [id number] [address] IMMATURE GRAN % 0.5 % Normal [facility] Comment on above: Order Comment: Speci men Type: BLOOD SPECIMENOrdering Facility: [facility] Address: [address] [place] [address] Performed By: #### 5 7021-8 ####[facility] LABORATORYCLIA [id number] [address] IMMATURE GRAN ABS 0.05 k/uL Normal <0.10 [facility] Comment on above: Order Comment: Speci men Type: BLOOD SPECIMENOrdering Facility: [facility] Address: [address] [place] [address] Performed By: #### 5 7021-8 ####[facility] LABORATORYCLIA [id number] [address] OF [facility] Lymphocytes (Bld) [#/Vol] 1.68 10*3/uL Normal 1.00-4.00 [facility] Comment on above: Order Comment: Speci men Type: BLOOD SPECIMENOrdering Facility: [facility] Address: [address] [place] [address] Performed By: #### 5 7021-8 ####[facility]ATORYCLIA [id number] [address] Lymphocytes/100 WBC (Bld) 16.2 % Normal [facility] Comment on above: Order Comment: Speci men Type: BLOOD SPECIMENOrdering Facility: [facility] Address: [address] [place] [address] Performed By: #### 5 7021-8 ####[facility]ORATORYCLIA [id number] [address] [place] MCH (RBC) [Entitic mass] 27.4 pg Normal 26.0-34.0 [facility] Comment on above: Order Comment: Speci men Type: BLOOD SPECIMENOrdering Facility: [facility] Address: [address] [place] [address] Performed By: #### 5 7021-8 ####[facility]ORATORYCLIA [id number] [address] [place] MCHC (RBC) [Mass/Vol] 29.5 g/dL Low 30.5-36.0 [facility] Comment on above: Order Comment: Speci men Type: BLOOD SPECIMENOrdering Facility: [facility] Address: [address] [place] [address] Performed By: #### 5 7021-8 ####[facility]ORATORYCLIA [id number] [address] [place] MCV (RBC) [Entitic vol] 93.0 fL Normal 80.0-100.0 [facility] Comment on above: Order Comment: Speci men Type: BLOOD SPECIMENOrdering Facility: [facility] Address: [address] [place] [address] Performed By: #### 5 7021-8 ####[facility] LABORATORYCLIA [id number] [place] [address] [place] Monocytes (Bld) [#/Vol] 0.63 10*3/uL Normal <0.87 [facility] Comment on above: Order Comment: Speci men Type: BLOOD SPECIMENOrdering Facility: [facility] Address: [address] [place] [address] Performed By: #### 5 7021-8 ####[facility]ORATORYCLIA [id number] [address] Monocytes/100 WBC (Bld) 6.1 % Normal [facility] Comment on above: Order Comment: Speci men Type: BLOOD SPECIMENOrdering Facility: [facility] Address: [address] [place] [address] Performed By: #### 5 7021-8 ####[facility] LABORATORYCLIA [id number] [address] [place] Neutrophils (Bld) [#/Vol] 7.91 10*3/uL High 1.45-7.50 [facility] Comment on above: Order Comment: Speci men Type: BLOOD SPECIMENOrdering Facility: [facility] Address: [address] [place] [address] Performed By: #### 5 7021-8 ####[facility]ORATORYCLIA [id number] [address] [place] Neutrophils/100 WBC (Bld) 76.3 % Normal [facility] Comment on above: Order Comment: Speci men Type: BLOOD SPECIMENOrdering Facility: [facility] Address: [address] [place] [address] Performed By: #### 5 7021-8 ####[facility]ORATORYCLIA [id number] [address] [place] Nucleated RBC (Bld) [#/Vol] 10*3/uL Normal <0.01 [facility] Comment on above: Order Comment: Speci men Type: BLOOD SPECIMENOrdering Facility: [facility] Address: [address] [place] [address] Performed By: #### 5 7021-8 ####[facility]ORATORYCLIA [id number] [address] [place] Nucleated RBC/100 WBC (Bld) [Ratio] 0.0 /100 WBC Normal [facility] Comment on above: Order Comment: Speci men Type: BLOOD SPECIMENOrdering Facility: [facility] Address: [address] [place] [address] Performed By: #### 5 7021-8 ####[facility]ORATORYCLIA [id number] [address] Platelet mean volume (Bld) [Entitic vol] 11.1 fL Normal 9.0-12.7 [facility] Comment on above: Order Comment: Speci men Type: BLOOD SPECIMENOrdering Facility: [facility] Address: [address] [place] [address] Performed By: #### 5 7021-8 ####[facility]ORATORYCLIA [id number] [address] [place] Platelets (Bld) [#/Vol] 285 10*3/uL Normal 150-400 [facility] Comment on above: Order Comment: Speci men Type: BLOOD SPECIMENOrdering Facility: [facility] Address: [address] [place] [address] Performed By: #### 5 7021-8 ####[facility]ORATORYCLIA [id number] [address] [place] RBC (Bld) [#/Vol] 3.28 10*6/uL Low 4.20-6.00 [facility] Comment on above: Order Comment: Speci men Type: BLOOD SPECIMENOrdering Facility: [facility] Address: [address] [place] [address] Performed By: #### 5 7021-8 ####[facility]ORATORYCLIA [id number] [place] [address] [place] WBC (Bld) [#/Vol] 10.36 10*3/uL Normal 3.70-11.00 [facility] Comment on above: Order Comment: Speci men Type: BLOOD SPECIMENOrdering Facility: [facility] Address: [address] [place] [address] Performed By: #### 5 7021-8 ####[facility] LABORATORYCLIA [id number] [address] [place] Legionella Ag Ur Qlon 2021 Legionella sp Ag Ql (U) Negative Normal Negative [facility] Comment on above: Order Comment: Speci men Type: URINE SPECIMENOrdering Facility: [facility] Address: [address] [place] [address] Performed By: #### 3 2781-7 ####[facility]ORATORYCLIA [id number] [place] [address] [place] Magnesium SerPl-mCncon 07-24 Magnesium [Mass/Vol] 2.3 mg/dL Normal 1.7-2.3 [facility] Comment on above: Order Comment: Speci men Type: BLOOD SPECIMENOrdering Facility: [facility] Address: [address] [place] [address] Performed By: #### 1 9123-9, PROCAL, 2777-1, 47025-7 ####[facility]ORATORYCLIA [id number] [address] [place] NURSING PROGon 07-24-2021 NURSING PROG Normal [facility] PROCALCITONIN (LAB)on 2021 Procalcitonin [Mass/Vol] 0.15 ng/mL High <0.09 [facility] Comment on above: Order Comment: Speci men Type: BLOOD SPECIMENOrdering Facility: [facility] Address: [address] [place] [address] Result Comment: For a guided interpretation of test results, please visit the Change in Procalcitonin Calculator, [email or web address]. Performed By: #### 1 9123-9, PROCCARLITOS, 2777-1, 47767-7 ####[facility]ORATORYCLIA [id number] [address] [place] Phosphate SerPl-mCncon 07-24 Phosphate [Mass/Vol] 3.9 mg/dL Normal 2.7-4.8 [facility] Comment on above: Order Comment: Speci men Type: BLOOD SPECIMENOrdering Facility: [facility] Address: [address] [place] [address] Performed By: #### 1 9123-9, PROCAL, 2777-1, 17066-1 ####[facility]ORATORYCLIA [id number] [address] [place] STREPTOCOCCUS PNEUMONIAE AGo n 07-24-2021 STREPTOCOCCUS PNEUMONIAE AG Normal [facility] Comment on above: Performed By: #### S PNAG ####[facility]ORATORYCLIA [id number] [address] [place] aPTT PPPon 07-24-2021 aPTT Coag (PPP) [Time] 60.8 s High 23.0-32.[address] [facility] Comment on above: Order Comment: Speci men Type: BLOOD SPECIMENOrdering Facility: [facility] Address: [address] [place] [address] Performed By: #### 1 4979-9 ####[facility]ORATORYCLIA [id number] [address] [place] aPTT Coag (PPP) [Time] 38.2 s High 23.0-32.[address] [facility] Comment on above: Order Comment: Speci men Type: BLOOD SPECIMENOrdering Facility: [facility] Address: [address] [address] Performed By: #### 1 4979-9 ####[facility]ORATORYCLIA [id number] [address] aPTT Coag (PPP) [Time] 35.9 s High 23.0-32.[address] [facility] Comment on above: Order Comment: Speci men Type: BLOOD SPECIMENOrdering Facility: [facility] Address: [address] [place] [address] Performed By: #### 1 4979-9 ####[facility]ORATORYCLIA [id number] [address] aPTT Coag (PPP) [Time] 28.8 s Normal 23.0-32.[address] [facility] Comment on above: Order Comment: Speci men Type: BLOOD SPECIMENOrdering Facility: [facility] Address: [address] [place] [address] Performed By: #### 1 4979-9 ####[facility]ORATORYCLIA [id number] [address] [place] ALLIED HEALTHon 07-23-2021 ALLIED HEALTH Normal [facility] ALLIED HEALTH Normal [facility] ALLIED HEALTH Normal [facility] ARTERIAL BLOOD GASESon 07-23 Base excess Calc (Bld) [Moles/Vol] 4 mmol/L High 0-2 [facility] Comment on above: Order Comment: Speci men Type: ARTERIAL BLOOD SPECIMENOrdering Facility: [facility] Address: [address] [address] Performed By: #### A LLBG ####[facility]ORATORYCLIA [id number] [address] Body temperature 100.58 [degF] Normal [facility] Comment on above: Order Comment: Speci men Type: ARTERIAL BLOOD SPECIMENOrdering Facility: [facility] Address: [address] [place] [address] Performed By: #### A LLBG ####[facility]ORATORYCLIA [id number] [address] STATES OF [facility] CALCIUM IONIZED, PH CORRECTED 1.26 mmol/L Normal 1.08-1.30 [facility] Comment on above: Order Comment: Speci men Type: ARTERIAL BLOOD SPECIMENOrdering Facility: [facility] Address: [address] [place] [address] Performed By: #### A LLBG ####[facility]ORATORYCLIA [id number] [place] [address] [place] Calcium.ionized (BldV) [Mass/Vol] 1.25 mmol/L Normal 1.08-1.30 [facility] Comment on above: Order Comment: Speci men Type: ARTERIAL BLOOD SPECIMENOrdering Facility: [facility] Address: [address] [place] [address] Performed By: #### A LLBG ####[facility]ORATORYCLIA [id number] [address] Carboxyhemoglobin (BldA) [Mass fraction] 1.2 % Normal 0.0-2.0 [facility] Comment on above: Order Comment: Speci men Type: ARTERIAL BLOOD SPECIMENOrdering Facility: [facility] Address: [address] [place] [address] Result Comment: Carb oxyhemoglobin Reference Range for Smokers: 2.0-8.0% Performed By: #### A LLBG ####[facility]ATORYCLIA [id number] [place] [address] [place] CO2 (Bld) [Partial pressure] 46 mm Hg Normal 36-46 [facility] Comment on above: Order Comment: Speci men Type: ARTERIAL BLOOD SPECIMENOrdering Facility: [facility] Address: [address] [place] [address] Performed By: #### A LLBG ####[facility]ORATORYCLIA [id number] [address] [place] CO2 [Moles/Vol] 27 mmol/L Normal 22-28 [facility] Comment on above: Order Comment: Speci men Type: ARTERIAL BLOOD SPECIMENOrdering Facility: [facility] Address: [address] [place] [address] Performed By: #### A LLBG ####[facility]ORATORYCLIA [id number] [address] CO2 adjusted to patient's actual temperature (Bld) [Partial pressure] 48 mmHg High 36-46 [facility] Comment on above: Order Comment: Speci men Type: ARTERIAL BLOOD SPECIMENOrdering Facility: [facility] Address: [address] [place] [address] Performed By: #### A LLBG ####[facility]ORATORYCLIA [id number] [address] [place] Glucose [Mass/Vol] 134 mg/dL High 60-105 [facility] Comment on above: Order Comment: Speci men Type: ARTERIAL BLOOD SPECIMENOrdering Facility: [facility] Address: [address] [place] [address] Performed By: #### A LLBG ####[facility]ORATORYCLIA [id number] [address] [place] HCO3 (Bld) [Moles/Vol] 29 mmol/L High 22-[address] [facility] Comment on above: Order Comment: Speci men Type: ARTERIAL BLOOD SPECIMENOrdering Facility: [facility] Address: [address] [place] [address] Performed By: #### A LLBG ####[facility]ORATORYCLIA [id number] [address] Hematocrit (Bld) [Volume fraction] 31.4 % Low 39.0-51.0 [facility] Comment on above: Order Comment: Speci men Type: ARTERIAL BLOOD SPECIMENOrdering Facility: [facility] Address: [address] [place] [address] Performed By: #### A LLBG ####[facility]ORATORYCLIA [id number] [address] [place] Hemoglobin (Bld) [Mass/Vol] 10.2 g/dL Low 13.0-17.0 [facility] Comment on above: Order Comment: Speci men Type: ARTERIAL BLOOD SPECIMENOrdering Facility: [facility] Address: [facility] [address] Performed By: #### A LLBG ####[facility]ORATORYCLIA [id number] [address] Methemoglobin (Bld) [Mass fraction] % Normal 0.0-1.5 [facility] Comment on above: Order Comment: Speci men Type: ARTERIAL BLOOD SPECIMENOrdering Facility: [facility] Address: [address] [place] [address] Performed By: #### A LLBG ####[facility]ORATORYCLIA [id number] [address] O2 THERAPY Ventilator Normal [facility] Comment on above: Order Comment: Speci men Type: ARTERIAL BLOOD SPECIMENOrdering Facility: [facility] Address: [address] [place] [address] Performed By: #### A LLBG ####[facility]ORATORYCLIA [id number] [address] Oxygen (Bld) [Partial pressure] 113 mm Hg High 85-95 [facility] Comment on above: Order Comment: Speci men Type: ARTERIAL BLOOD SPECIMENOrdering Facility: [facility] Address: [address] [place] [address] Performed By: #### A LLBG ####[facility]ORATORYCLIA [id number] [address] Oxygen adjusted to patient's actual temperature (Bld) [Partial pressure] 119 mmHg High 85-95 [facility] Comment on above: Order Comment: Speci men Type: ARTERIAL BLOOD SPECIMENOrdering Facility: [facility] Address: [address] [place] [address] Performed By: #### A LLBG ####[facility]ORATORYCLIA [id number] [place] [address] OXYGEN SATURATION, ARTERIAL 98 % Normal 95-98 [facility] Comment on above: Order Comment: Speci men Type: ARTERIAL BLOOD SPECIMENOrdering Facility: [facility] Address: [address] [place] [address] Performed By: #### A LLBG ####[facility]ORATORYCLIA [id number] [address] [place] Oxyhemoglobin (BldA) [Mass fraction] 96 % Normal 95-98 [facility] Comment on above: Order Comment: Speci men Type: ARTERIAL BLOOD SPECIMENOrdering Facility: [facility] Address: [address] [place] [address] Performed By: #### A LLBG ####[facility]ORATORYCLIA [id number] [address] [place] pH (Bld) 7.41 [pH] Normal 7.35-7.45 [facility] Comment on above: Order Comment: Speci men Type: ARTERIAL BLOOD SPECIMENOrdering Facility: [facility] Address: [address] [place] [address] Performed By: #### A LLBG ####[facility]ORATORYCLIA [id number] [address] pH adjusted to patient's actual temperature (Bld) 7.40 Normal 7.35-7.45 [facility] Comment on above: Order Comment: Speci men Type: ARTERIAL BLOOD SPECIMENOrdering Facility: [facility] Address: [address] [place] [address] Performed By: #### A LLBG ####[facility]ORATORYCLIA [id number] [address] [place] Potassium [Moles/Vol] 4.3 mmol/L Normal 3.5-5.0 [facility] Comment on above: Order Comment: Speci men Type: ARTERIAL BLOOD SPECIMENOrdering Facility: [facility] Address: [address] [place] [address] Performed By: #### A LLBG ####[facility]ORATORYCLIA [id number] [address] [place] Sodium [Moles/Vol] 144 mmol/L Normal 136-144 [facility] Comment on above: Order Comment: Speci men Type: ARTERIAL BLOOD SPECIMENOrdering Facility: [facility] Address: [address] [address] Performed By: #### A LLBG ####[facility]ORATORYCLIA [id number] [address] Bacteria CSF Culton 07-24-19 22 Bacteria identified Cx Nom (CSF) Abnormal [facility] Comment on above: Performed By: #### 6 06-4 ####[facility]ORATORYCLIA [id number] [address] [place] Basic metabolic 2000 panelon 07-23-2021 Anion gap [Moles/Vol] 12 mmol/L Normal 9-18 [facility] Comment on above: Order Comment: Speci men Type: BLOOD SPECIMENOrdering Facility: [facility] Address: [address] [place] [address] Performed By: #### 2 4321-2 ####[facility]ORATORYCLIA [id number] [address] [place] Calcium [Mass/Vol] 9.7 mg/dL Normal 8.5-10.2 [facility] Comment on above: Order Comment: Speci men Type: BLOOD SPECIMENOrdering Facility: [facility] Address: [address] [address] Performed By: #### 2 4321-2 ####[facility]ORATORYCLIA [id number] [address] [place] Chloride [Moles/Vol] 105 mmol/L Normal 97-105 [facility] Comment on above: Order Comment: Speci men Type: BLOOD SPECIMENOrdering Facility: [facility] Address: [address] [address] Performed By: #### 2 4321-2 ####[facility]ORATORYCLIA [id number] [address] STATES OF [facility] CO2 [Moles/Vol] 28 mmol/L Normal 22-30 [facility] Comment on above: Order Comment: Speci men Type: BLOOD SPECIMENOrdering Facility: [facility] Address: [address] [place] [address] Performed By: #### 2 4321-2 ####[facility]ORATORYCLIA [id number] [address] STATES OF [facility] Creatinine [Mass/Vol] 0.78 mg/dL Normal 0.73-1.22 [facility] Comment on above: Order Comment: Speci men Type: BLOOD SPECIMENOrdering Facility: [facility] Address: [address] [place] [address] Performed By: #### 2 4321-2 ####[facility] [id number] [address] ESTIMATED GLOMERULAR FILTRATION RATE 97 mL/min/1.73m??? Normal >=60 [facility] Comment on above: Order Comment: Speci men Type: BLOOD SPECIMENOrdering Facility: [facility] Address: [address] [place] [address] Result Comment: Luzmaria mated Glomerular Filtration Rate [...] 4321-2 ####[facility]ORATORYCLIA [id number] [address] STATES OF [facility] Glucose [Mass/Vol] 127 mg/dL High 74-99 [facility] Comment on above: Order Comment: Speci men Type: BLOOD SPECIMENOrdering Facility: [facility] Address: [address] [place] [address] Result Comment: The [place] [employer] Association (ADA) provides guidance for cutoff [...] Standards of Medical Care in Diabetes 2016, [place] [employer]. Diabetes Care. 2016.39(Suppl 1). Performed By: #### 2 4321-2 ####[facility]ORATORYCLIA [id number] [address] STATES OF [facility] Potassium [Moles/Vol] 4.3 mmol/L Normal 3.7-5.1 [facility] Comment on above: Order Comment: Shira feldman Type: BLOOD SPECIMENOrdering Facility: [facility] Address: [address] [place] [address] Performed By: #### 2 4321-2 ####[facility] LABORATORYCLIA [id number] [address] STATES [facility] Sodium [Moles/Vol] 145 mmol/L High 136-144 [facility] Comment on above: Order Comment: Shira feldman Type: BLOOD SPECIMENOrdering Facility: [facility] Address: [address] [place] [address] Performed By: #### 2 4321-2 ####[facility] LABORATORYCLIA [id number] [address] STATES [facility] Urea nitrogen [Mass/Vol] 37 mg/dL High 9-24 [facility] Comment on above: Order Comment: Shira feldman Type: BLOOD SPECIMENOrdering Facility: [facility] Address: [address] [place] [address] Performed By: #### 2 4321-2 ####[facility] LABORATORYCLIA [id number] [place] [address] [place] C diff Tox gens Stl Ql MEGAN+p robeon 07-23-2021 C. difficile toxin genes MEGAN+probe Ql (Stl) Negative Normal Negative for C. difficile toxin by PCR [facility] Comment on above: Order Comment: Speci men Type: STOOL SPECIMENOrdering Facility: [facility] Address: [address] [place] [address] Performed By: #### 5 4067-4 ####[facility] LABORATORYCLIA [id number] [address] STATES OF [facility] CBC W Auto Differential pane l (Bld)on 07-23-2021 Basophils (Bld) [#/Vol] 0.07 10*3/uL Normal <0.11 [facility] Comment on above: Order Comment: Speci men Type: BLOOD SPECIMENOrdering Facility: [facility] Address: [address] [place] [address] Performed By: #### 5 7021-8 ####[facility] LABORATORYCLIA [id number] [address] STATES OF [facility] Basophils/100 WBC (Bld) 0.5 % Normal [facility] Comment on above: Order Comment: Speci men Type: BLOOD SPECIMENOrdering Facility: [facility] Address: [address] [place] [address] Performed By: #### 5 7021-8 ####[facility] LABORATORYCLIA [id number] [address] Differential cell count method Nom (Bld) Auto Normal [facility] Comment on above: Order Comment: Speci men Type: BLOOD SPECIMENOrdering Facility: [facility] Address: [address] [place] [address] Performed By: #### 5 7021-8 ####[facility] LABORATORYCLIA [id number] [place] [address] [place] Eosinophils (Bld) [#/Vol] 10*3/uL Normal <0.46 [facility] Comment on above: Order Comment: Speci men Type: BLOOD SPECIMENOrdering Facility: [facility] Address: [address] [place] [address] Performed By: #### 5 7021-8 ####[facility]ORATORYCLIA [id number] [address] Eosinophils/100 WBC (Bld) 0.2 % Normal [facility] Comment on above: Order Comment: Speci men Type: BLOOD SPECIMENOrdering Facility: [facility] Address: [address] [place] [address] Performed By: #### 5 7021-8 ####[facility] LABORATORYCLIA [id number] [address] [place] Erythrocyte distribution width (RBC) [Ratio] 16.7 % High 11.5-15.0 [facility] Comment on above: Order Comment: Speci men Type: BLOOD SPECIMENOrdering Facility: [facility] Address: [address] [place] [address] Performed By: #### 5 7021-8 ####[facility] LABORATORYCLIA [id number] [address] Hematocrit (Bld) [Volume fraction] 32.8 % Low 39.0-51.0 [facility] Comment on above: Order Comment: Speci men Type: BLOOD SPECIMENOrdering Facility: [facility] Address: [address] [place] [address] Performed By: #### 5 7021-8 ####[facility]ORATORYCLIA [id number] [address] [place] Hemoglobin (Bld) [Mass/Vol] 9.7 g/dL Low 13.0-17.0 [facility] Comment on above: Order Comment: Speci men Type: BLOOD SPECIMENOrdering Facility: [facility] Address: [address] [place] [address] Performed By: #### 5 7021-8 ####[facility] LABORATORYCLIA [id number] [address] [place] IMMATURE GRAN % 0.7 % Normal [facility] Comment on above: Order Comment: Speci men Type: BLOOD SPECIMENOrdering Facility: [facility] Address: [address] [place] [address] Performed By: #### 5 7021-8 ####[facility]ORATORYCLIA [id number] [address] IMMATURE GRAN ABS 0.09 k/uL Normal <0.10 [facility] Comment on above: Order Comment: Speci men Type: BLOOD SPECIMENOrdering Facility: [facility] Address: [address] [place] [address] Performed By: #### 5 7021-8 ####[facility] LABORATORYCLIA [id number] [address] Lymphocytes (Bld) [#/Vol] 1.94 10*3/uL Normal 1.00-4.00 [facility] Comment on above: Order Comment: Speci men Type: BLOOD SPECIMENOrdering Facility: [facility] Address: [address] [place] [address] Performed By: #### 5 7021-8 ####[facility]ORATORYCLIA [id number] [address] Lymphocytes/100 WBC (Bld) 14.6 % Normal [facility] Comment on above: Order Comment: Speci men Type: BLOOD SPECIMENOrdering Facility: [facility] Address: [address] [place] [address] Performed By: #### 5 7021-8 ####[facility] LABORATORYCLIA [id number] [address] MCH (RBC) [Entitic mass] 27.2 pg Normal 26.0-34.0 [facility] Comment on above: Order Comment: Speci men Type: BLOOD SPECIMENOrdering Facility: [facility] Address: [address] [place] [address] Performed By: #### 5 7021-8 ####[facility] LABORATORYCLIA [id number] [place] [address] [place] MCHC (RBC) [Mass/Vol] 29.6 g/dL Low 30.5-36.0 [facility] Comment on above: Order Comment: Speci men Type: BLOOD SPECIMENOrdering Facility: [facility] Address: [address] [place] [address] Performed By: #### 5 7021-8 ####[facility] LABORATORYCLIA [id number] [place] [address] [place] MCV (RBC) [Entitic vol] 92.1 fL Normal 80.0-100.0 [facility] Comment on above: Order Comment: Speci men Type: BLOOD SPECIMENOrdering Facility: [facility] Address: [address] [place] [address] Performed By: #### 5 7021-8 ####[facility]ORATORYCLIA [id number] [address] [place] Monocytes (Bld) [#/Vol] 0.74 10*3/uL Normal <0.87 [facility] Comment on above: Order Comment: Speci men Type: BLOOD SPECIMENOrdering Facility: [facility] Address: [address] [place] [address] Performed By: #### 5 7021-8 ####[facility] LABORATORYCLIA [id number] [address] Monocytes/100 WBC (Bld) 5.6 % Normal [facility] Comment on above: Order Comment: Speci men Type: BLOOD SPECIMENOrdering Facility: [facility] Address: [address] [place] [address] Performed By: #### 5 7021-8 ####[facility] LABORATORYCLIA [id number] [address] [place] Neutrophils (Bld) [#/Vol] 10.43 10*3/uL High 1.45-7.50 [facility] Comment on above: Order Comment: Speci men Type: BLOOD SPECIMENOrdering Facility: [facility] Address: [address] [place] [address] Performed By: #### 5 7021-8 ####[facility] LABORATORYCLIA [id number] [address] Neutrophils/100 WBC (Bld) 78.4 % Normal [facility] Comment on above: Order Comment: Speci men Type: BLOOD SPECIMENOrdering Facility: [facility] Address: [address] [place] [address] Performed By: #### 5 7021-8 ####[facility] LABORATORYCLIA [id number] [address] [place] Nucleated RBC (Bld) [#/Vol] 10*3/uL Normal <0.01 [facility] Comment on above: Order Comment: Speci men Type: BLOOD SPECIMENOrdering Facility: [facility] Address: [address] [place] [address] Performed By: #### 5 7021-8 ####[facility]ORATORYCLIA [id number] [address] Nucleated RBC/100 WBC (Bld) [Ratio] 0.0 /100 WBC Normal [facility] Comment on above: Order Comment: Speci men Type: BLOOD SPECIMENOrdering Facility: [facility] Address: [address] [place] [address] Performed By: #### 5 7021-8 ####[facility] LABORATORYCLIA [id number] [address] [place] Platelet mean volume (Bld) [Entitic vol] 11.0 fL Normal 9.0-12.7 [facility] Comment on above: Order Comment: Speci men Type: BLOOD SPECIMENOrdering Facility: [facility] Address: [address] [place] [address] Performed By: #### 5 7021-8 ####[facility]ORATORYCLIA [id number] [address] [place] Platelets (Bld) [#/Vol] 381 10*3/uL Normal 150-400 [facility] Comment on above: Order Comment: Speci men Type: BLOOD SPECIMENOrdering Facility: [facility] Address: [address] [place] [address] Performed By: #### 5 7021-8 ####[facility] LABORATORYCLIA [id number] [address] OF [facility] RBC (Bld) [#/Vol] 3.56 10*6/uL Low 4.20-6.00 [facility] Comment on above: Order Comment: Speci men Type: BLOOD SPECIMENOrdering Facility: [facility] Address: [address] [place] [address] Performed By: #### 5 7021-8 ####[facility] LABORATORYCLIA [id number] [address] OF [facility] WBC (Bld) [#/Vol] 13.29 10*3/uL High 3.70-11.00 [facility] Comment on above: Order Comment: Speci men Type: BLOOD SPECIMENOrdering Facility: [facility] Address: [address] [place] [address] Performed By: #### 5 7021-8 ####[facility]ORATORYCLIA [id number] [address] CONSULT PROGon 07-23-2021 CONSULT PROG Normal [facility] CONSULT PROG Normal [facility] CSF MANUAL DIFFon 07-23-2021 DIF TTL, CSF 100 cells counted Normal [facility] Comment on above: Order Comment: Speci men Type: CEREBROSPINAL FLUIDOrdering Facility: [facility] Address: [address] [place] [address] Performed By: #### L [id number], [id number], 16023-0 ####[facility]ORATORYCLIA [id number] [address] [place] LYMPH%, CSF 2 % Low 50-90 [facility] Comment on above: Order Comment: Speci men Type: CEREBROSPINAL FLUIDOrdering Facility: [facility] Address: [address] [place] [address] Performed By: #### L [id number], HLT6744, 15731-7 ####[facility]ORATORYCLIA [id number] [place] [address] [place] MONO%, CSF 9 % Low 10-50 [facility] Comment on above: Order Comment: Speci men Type: CEREBROSPINAL FLUIDOrdering Facility: [facility] Address: [address] [place] [address] Performed By: #### L [id number], CFJ6083, 54709-5 ####[facility]ORATORYCLIA [id number] [place] [address] [place] NEUT%, CSF 89 % High 0-3 [facility] Comment on above: Order Comment: Speci men Type: CEREBROSPINAL FLUIDOrdering Facility: [facility] Address: [address] [place] [address] Performed By: #### L [id number], GWH8974, 04975-2 ####[facility]ORATORYCLIA [id number] [address] CSF PATHOLOGIST INTERP (LAB REFLEX ORDER-NO BILL)on 07-23-2021 CSF STAFF REVIEW Negative for maligna nt cells. Numerous bacterial organisms present, cocci in pairs and chains. Recommend correlation with CSF culture results. Normal [facility] Comment on above: Order Comment: Speci men Type: CEREBROSPINAL FLUIDOrdering Facility: [facility] Address: [address] [place] [address] Performed By: #### L [id number], VMW1748, 41976-1 ####[facility]ORATORYCLIA [id number] [address] Pathologist name Reviewed by Amador Stevens MD [facility] Comment on above: Order Comment: Speci men Type: CEREBROSPINAL FLUIDOrdering Facility: [facility] Address: [address] [place] [address] Performed By: #### L [id number], CGB2259, 10390-0 ####[facility]ORATORYCLIA [id number] [address] BRAIN WO IVCONon 07-24-19 CT BRAIN WO IVCON Normal [facility] Cell count panel (CSF)on Clarity (CSF) Clear Normal Clear [facility] Comment on above: Order Comment: Speci men Type: CEREBROSPINAL FLUIDOrdering Facility: [facility] Address: [address] [place] [address] Performed By: #### L [id number], OLY2719, 83817-2 ####[facility]ORATORYCLIA [id number] [address] Clarity (Unsp spec) Not Indicated Normal Clear [facility] Comment on above: Order Comment: Speci men Type: CEREBROSPINAL FLUIDOrdering Facility: [facility] Address: [address] [place] [address] Performed By: #### L [id number], UMJ4492, 68110-2 ####[facility]ORATORYCLIA [id number] [address] Color (CSF) Colorless Normal Colorless [facility] Comment on above: Order Comment: Speci men Type: CEREBROSPINAL FLUIDOrdering Facility: [facility] Address: [address] [place] [address] Performed By: #### L [id number], DTS3154, 92914-8 ####[facility]ORATORYCLIA [id number] [address] Color (Spun CSF) Not Indicated Normal Colorless [facility] Comment on above: Order Comment: Speci men Type: CEREBROSPINAL FLUIDOrdering Facility: [facility] Address: [address] [place] [address] Performed By: #### L [id number], DMK8465, 79254-9 ####[facility]ORATORYCLIA [id number] [address] CSF TUBE NUMBER [employer] Normal [facility] Comment on above: Order Comment: Speci men Type: CEREBROSPINAL FLUIDOrdering Facility: [facility] Address: [address] [place], [place] [address] Performed By: #### L [id number], LAD6099, 26119-1 ####[facility]ORATORYCLIA [id number] [address] RBC Manual cnt (CSF) [#/Vol] 7 cells/uL High 0-5 [facility] Comment on above: Order Comment: Speci men Type: CEREBROSPINAL FLUIDOrdering Facility: [facility] Address: [address] [place] [address] Performed By: #### L [id number], FYE9701, 13620-4 ####[facility]ATORYCLIA [id number] [address] WBC Manual cnt (CSF) [#/Vol] 193 cells/uL High 0-5 [facility] Comment on above: Order Comment: Speci men Type: CEREBROSPINAL FLUIDOrdering Facility: [facility] Address: [address] [place] [address] Performed By: #### L [id number], [id number], 28797-2 ####[facility]ORATORYCLIA [id number] [address] [place] Glucose CSF-ncon 2 Glucose (CSF) [Mass/Vol] 81 mg/dL High 40-70 [facility] Comment on above: Order Comment: Speci men Type: CEREBROSPINAL FLUIDOrdering Facility: [facility] Address: [address] [place] [address] Result Comment: Lumb ar CSF glucose values of healthy patients are approximately 60% of the plasma values and must always be compared with a concurrently measured plasma value for adequate clinical interpretation.References: 1. Glucose HK (GLUC3) [package insert V 12.0 [place]]. [employer], [place], [place]. September 2015. 2. Michelle Moore, Loki H. (2015). Chapter 7: Glucose and Lactate. Marianela Rothman.(eds.), Cerebrospinal Fluid in Clinical Neurology. [place]: [employer]. Performed By: #### 2 342-4, 2880-3 ####[facility] LABORATORYCLIA [id number] [address] [place] NURSING PROGon 07-23-2021 NURSING PROG Normal [facility] NURSING PROG Normal [facility] Prot CSF-mCncon 07-23-2021 Protein (CSF) [Mass/Vol] 68 mg/dL High 15-45 [facility] Comment on above: Order Comment: Speci men Type: CEREBROSPINAL FLUIDOrdering Facility: [facility] Address: [address] [place] [address] Performed By: #### 2 342-4, 2880-3 ####[facility]ORATORYCLIA [id number] [address] Urinalysis complete panel (U )on 07-23-2021 Bilirubin Ql (U) Negative Normal Negative [facility] Comment on above: Order Comment: Speci men Type: URINE SPECIMENOrdering Facility: [facility] Address: [address] [place] [address] Performed By: #### 2 4356-8 ####[facility]ORATORYCLIA [id number] [address] [place] Clarity (Unsp spec) Clear Normal Clear [facility] Comment on above: Order Comment: Speci men Type: URINE SPECIMENOrdering Facility: [facility] Address: [address] [place] [address] Performed By: #### 2 4356-8 ####[facility]ORATORYCLIA [id number] [address] Color (U) Light Yellow Normal yellow [facility] Comment on above: Order Comment: Speci men Type: URINE SPECIMENOrdering Facility: [facility] Address: [address] [place] [address] Performed By: #### 2 4356-8 ####[facility]ORATORYCLIA [id number] [address] [place] Glucose Test strip (U) [Mass/Vol] Negative Normal Negative [facility] Comment on above: Order Comment: Speci men Type: URINE SPECIMENOrdering Facility: [facility] Address: [address] [place] [address] Performed By: #### 2 4356-8 ####[facility]ORATORYCLIA [id number] [address] Hemoglobin Ql (U) Negative Normal Negative [facility] Comment on above: Order Comment: Speci men Type: URINE SPECIMENOrdering Facility: [facility] Address: [address] [place] [address] Performed By: #### 2 4356-8 ####[facility] LABORATORYCLIA [id number] [address] [place] Ketones Ql (U) Negative Normal Negative [facility] Comment on above: Order Comment: Speci men Type: URINE SPECIMENOrdering Facility: [facility] Address: [address] [place] [address] Performed By: #### 2 4356-8 ####[facility]ORATORYCLIA [id number] [address] [place] Leukocyte esterase Test strip Ql (U) Negative Normal Negative [facility] Comment on above: Order Comment: Speci men Type: URINE SPECIMENOrdering Facility: [facility] Address: [address] [place] [address] Performed By: #### 2 4356-8 ####[facility]ORATORYCLIA [id number] [address] [place] Nitrite Ql (U) Negative Normal Negative [facility] Comment on above: Order Comment: Speci men Type: URINE SPECIMENOrdering Facility: [facility] Address: [address] [place] [address] Performed By: #### 2 4356-8 ####[facility]ORATORYCLIA [id number] [address] [place] pH (U) 6.0 [pH] Normal 5.0-8.0 [facility] Comment on above: Order Comment: Speci men Type: URINE SPECIMENOrdering Facility: [facility] Address: [address] [place] [address] Performed By: #### 2 4356-8 ####[facility]ORATORYCLIA [id number] [address] Protein (U) [Mass/Vol] 1+ Abnormal Negative [facility] Comment on above: Order Comment: Speci men Type: URINE SPECIMENOrdering Facility: [facility] Address: [address] [place] [address] Performed By: #### 2 4356-8 ####[facility]ORATORYCLIA [id number] [address] RBC LM.HPF (Urine sed) [#/Area] 0-3 /HPF Normal 0-3 /HPF [facility] Comment on above: Order Comment: Speci men Type: URINE SPECIMENOrdering Facility: [facility] Address: [address] [place] [address] Performed By: #### 2 4356-8 ####[facility]ORATORYCLIA [id number] [address] Specific gravity (U) [Rel density] 1.018 Normal 1.005-1.030 [facility] Comment on above: Order Comment: Speci men Type: URINE SPECIMENOrdering Facility: [facility] Address: [address] [place] [address] Performed By: #### 2 4356-8 ####[facility]ORATORYCLIA [id number] [address] Urobilinogen Ql (U) Normal Normal Negative [facility] Comment on above: Order Comment: Speci men Type: URINE SPECIMENOrdering Facility: [facility] Address: [address] [place] [address] Performed By: #### 2 4356-8 ####[facility]ORATORYCLIA [id number] [address] [place] WBC LM.HPF (Urine sed) [#/Area] 0-5 /HPF Normal 0-5 /HPF [facility] Comment on above: Order Comment: Speci men Type: URINE SPECIMENOrdering Facility: [facility] Address: [address] [place] [address] Performed By: #### 2 4356-8 ####[facility] LABORATORYCLIA [id number] [address] Vancomycin random [Mass/Vol] on 07-23-2021 Vancomycin [Mass/Vol] 12.9 ug/mL Normal 10.0-20.0 [facility] Comment on above: Order Comment: Speci men Type: BLOOD SPECIMENOrdering Facility: [facility] Address: [address] [place] [address] Result Comment: Refe rence ranges and high/low indicator flags are provided as general guidelines only. The treating physician must determine appropriate target levels/dosing based on the specific clinical situation. Performed By: #### 4 091-5 ####[facility]ORATORYCLIA [id number] [address] OF [facility] XR CHEST 1V FRONTALon 2021 XR CHEST 1V FRONTAL Normal [facility] XR CHEST 1V FRONTAL Normal [facility] aPTT PPPon 07-23-2021 aPTT Coag (PPP) [Time] 32.3 s Normal 23.0-32.[address] [facility] Comment on above: Order Comment: Speci men Type: BLOOD SPECIMENOrdering Facility: [facility] Address: [address] [address] Performed By: #### 1 4979-9 ####[facility]ORATORYCLIA [id number] [address] aPTT Coag (PPP) [Time] 57.9 s High 23.0-32.[address] [facility] Comment on above: Order Comment: Speci men Type: BLOOD SPECIMENOrdering Facility: [facility] Address: [address] [place] [address] Performed By: #### 1 4979-9 ####[facility]ORATORYCLIA [id number] [place] [address] [place] aPTT Coag (PPP) [Time] 46.3 s High 23.0-32.[address] [facility] Comment on above: Order Comment: Speci men Type: BLOOD SPECIMENOrdering Facility: [facility] Address: [address] [place] [address] Performed By: #### 1 4979-9 ####[facility] LABORATORYCLIA [id number] [place] [address] [place] Basic metabolic 2000 panelon 07-22-2021 Anion gap [Moles/Vol] 8 mmol/L Low 9-18 [facility] Comment on above: Order Comment: Speci men Type: BLOOD SPECIMENOrdering Facility: [facility] Address: [address] [place] [address] Performed By: #### 2 4321-2 ####[facility]ORATORYCLIA [id number] [place] [address] [place] Calcium [Mass/Vol] 9.5 mg/dL Normal 8.5-10.2 [facility] Comment on above: Order Comment: Speci men Type: BLOOD SPECIMENOrdering Facility: [facility] Address: [address] [place] [address] Performed By: #### 2 4321-2 ####[facility] LABORATORYCLIA [id number] [address] [place] Chloride [Moles/Vol] 105 mmol/L Normal 97-105 [facility] Comment on above: Order Comment: Speci men Type: BLOOD SPECIMENOrdering Facility: [facility] Address: [address] [place] [address] Performed By: #### 2 4321-2 ####[facility] LABORATORYCLIA [id number] [place] [address] [place] CO2 [Moles/Vol] 32 mmol/L High 22-30 [facility] Comment on above: Order Comment: Speci men Type: BLOOD SPECIMENOrdering Facility: [facility] Address: [address] [place] [address] Performed By: #### 2 4321-2 ####[facility] LABORATORYCLIA [id number] [address] STATES OF [facility] Creatinine [Mass/Vol] 0.75 mg/dL Normal 0.73-1.22 [facility] Comment on above: Order Comment: Shira feldman Type: BLOOD SPECIMENOrdering Facility: [facility] Address: [address] [place] [address] Performed By: #### 2 4321-2 ####[facility] LABORATORYCLIA [id number] [address] ESTIMATED GLOMERULAR FILTRATION RATE 98 mL/min/1.73m??? Normal >=60 [facility] Comment on above: Order Comment: Shira feldman Type: BLOOD SPECIMENOrdering Facility: [facility] Address: [address] [place] [address] Result Comment: Luzmaria mated Glomerular Filtration Rate [...] 4321-2 ####[facility] LABORATORYCLIA [id number] [address] STATES OF [facility] Glucose [Mass/Vol] 128 mg/dL High 74-99 [facility] Comment on above: Order Comment: Shira francia Type: BLOOD SPECIMENOrdering Facility: [facility] Address: [address] [place] [address] Result Comment: The [place] Diabetes Association (ADA) provides guidance for cutoff [...] Standards of Medical Care in Diabetes 2016, [place] [employer]. Diabetes Care. 2016.39(Suppl 1). Performed By: #### 2 4321-2 ####[facility]ORATORYCLIA [id number] [address] STATES OF [facility] Potassium [Moles/Vol] 3.7 mmol/L Normal 3.7-5.1 [facility] Comment on above: Order Comment: Speci men Type: BLOOD SPECIMENOrdering Facility: [facility] Address: [address] [place] [address] Performed By: #### 2 4321-2 ####[facility]ATORYCLIA [id number] [address] Sodium [Moles/Vol] 145 mmol/L High 136-144 [facility] Comment on above: Order Comment: Shira feldman Type: BLOOD SPECIMENOrdering Facility: [facility] Address: [address] [place] [address] Performed By: #### 2 4321-2 ####[facility]ATORYCLIA [id number] [address] Urea nitrogen [Mass/Vol] 39 mg/dL High 9-24 [facility] Comment on above: Order Comment: Shira feldman Type: BLOOD SPECIMENOrdering Facility: [facility] Address: [address] [place] [address] Performed By: #### 2 4321-2 ####[facility]ORATORYCLIA [id number] [address] [place] CASE MANAGEMon 07-22-2021 CASE MANAGEM Normal [facility] CBC W Auto Differential pane l (Bld)on 07-22-2021 Basophils (Bld) [#/Vol] 0.06 10*3/uL Normal <0.11 [facility] Comment on above: Order Comment: Speci men Type: BLOOD SPECIMENOrdering Facility: [facility] Address: [address] [address] Performed By: #### 5 7021-8 ####[facility]ORATORYCLIA [id number] [address] STATES [facility] Basophils/100 WBC (Bld) 0.5 % Normal [facility] Comment on above: Order Comment: Speci men Type: BLOOD SPECIMENOrdering Facility: [facility] Address: [address] [place] [address] Performed By: #### 5 7021-8 ####[facility]ORATORYCLIA [id number] [address] Differential cell count method Nom (Bld) Auto Normal [facility] Comment on above: Order Comment: Speci men Type: BLOOD SPECIMENOrdering Facility: [facility] Address: [address] [place] [address] Performed By: #### 5 7021-8 ####[facility]ORATORYCLIA [id number] [address] [place] Eosinophils (Bld) [#/Vol] 0.44 10*3/uL Normal <0.46 [facility] Comment on above: Order Comment: Speci men Type: BLOOD SPECIMENOrdering Facility: [facility] Address: [address] [place] [address] Performed By: #### 5 7021-8 ####[facility]ORATORYCLIA [id number] [address] Eosinophils/100 WBC (Bld) 3.9 % Normal [facility] Comment on above: Order Comment: Speci men Type: BLOOD SPECIMENOrdering Facility: [facility] Address: [address] [place] [address] Performed By: #### 5 7021-8 ####[facility]ATORYCLIA [id number] [address] [place] Erythrocyte distribution width (RBC) [Ratio] 17.0 % High 11.5-15.0 [facility] Comment on above: Order Comment: Speci men Type: BLOOD SPECIMENOrdering Facility: [facility] Address: [address] [place] [address] Performed By: #### 5 7021-8 ####[facility]ORATORYCLIA [id number] [address] Hematocrit (Bld) [Volume fraction] 32.0 % Low 39.0-51.0 [facility] Comment on above: Order Comment: Speci men Type: BLOOD SPECIMENOrdering Facility: [facility] Address: [address] [place] [address] Performed By: #### 5 7021-8 ####[facility]ORATORYCLIA [id number] [address] Hemoglobin (Bld) [Mass/Vol] 9.3 g/dL Low 13.0-17.0 [facility] Comment on above: Order Comment: Speci men Type: BLOOD SPECIMENOrdering Facility: [facility] Address: [address] [place] [address] Performed By: #### 5 7021-8 ####[facility]ORATORYCLIA [id number] [address] IMMATURE GRAN % 0.5 % Normal [facility] Comment on above: Order Comment: Speci men Type: BLOOD SPECIMENOrdering Facility: [facility] Address: [address] [place] [address] Performed By: #### 5 7021-8 ####[facility]ORATORYCLIA [id number] [address] IMMATURE GRAN ABS 0.06 k/uL Normal <0.10 [facility] Comment on above: Order Comment: Speci men Type: BLOOD SPECIMENOrdering Facility: [facility] Address: [address] [place] [address] Performed By: #### 5 7021-8 ####[facility]ORATORYCLIA [id number] [address] Lymphocytes (Bld) [#/Vol] 1.83 10*3/uL Normal 1.00-4.00 [facility] Comment on above: Order Comment: Speci men Type: BLOOD SPECIMENOrdering Facility: [facility] Address: [address] [place] [address] Performed By: #### 5 7021-8 ####[facility]ORATORYCLIA [id number] [address] Lymphocytes/100 WBC (Bld) 16.1 % Normal [facility] Comment on above: Order Comment: Speci men Type: BLOOD SPECIMENOrdering Facility: [facility] Address: [address] [place] [address] Performed By: #### 5 7021-8 ####[facility]ORATORYCLIA [id number] [address] STATES OF [facility] MCH (RBC) [Entitic mass] 27.0 pg Normal 26.0-34.0 [facility] Comment on above: Order Comment: Speci men Type: BLOOD SPECIMENOrdering Facility: [facility] Address: [address] [place] [address] Performed By: #### 5 7021-8 ####[facility]ORATORYCLIA [id number] [address] MCHC (RBC) [Mass/Vol] 29.1 g/dL Low 30.5-36.0 [facility] Comment on above: Order Comment: Speci men Type: BLOOD SPECIMENOrdering Facility: [facility] Address: [address] [place] [address] Performed By: #### 5 7021-8 ####[facility]ORATORYCLIA [id number] [address] MCV (RBC) [Entitic vol] 92.8 fL Normal 80.0-100.0 [facility] Comment on above: Order Comment: Speci men Type: BLOOD SPECIMENOrdering Facility: [facility] Address: [address] [place] [address] Performed By: #### 5 7021-8 ####[facility]ATORYCLIA [id number] [place] [address] [place] Monocytes (Bld) [#/Vol] 0.87 10*3/uL High <0.87 [facility] Comment on above: Order Comment: Speci men Type: BLOOD SPECIMENOrdering Facility: [facility] Address: [address] [place] [address] Performed By: #### 5 7021-8 ####[facility]ORATORYCLIA [id number] [place] [address] [place] Monocytes/100 WBC (Bld) 7.6 % Normal [facility] Comment on above: Order Comment: Speci men Type: BLOOD SPECIMENOrdering Facility: [facility] Address: [address] [place] [address] Performed By: #### 5 7021-8 ####[facility]ORATORYCLIA [id number] [place] [address] [place] Neutrophils (Bld) [#/Vol] 8.12 10*3/uL High 1.45-7.50 [facility] Comment on above: Order Comment: Speci men Type: BLOOD SPECIMENOrdering Facility: [facility] Address: [address] [place] [address] Performed By: #### 5 7021-8 ####[facility]ORATORYCLIA [id number] [address] [place] Neutrophils/100 WBC (Bld) 71.4 % Normal [facility] Comment on above: Order Comment: Speci men Type: BLOOD SPECIMENOrdering Facility: [facility] Address: [address] [place] [address] Performed By: #### 5 7021-8 ####[facility]ORATORYCLIA [id number] [place] [address] [place] Nucleated RBC (Bld) [#/Vol] 10*3/uL Normal <0.01 [facility] Comment on above: Order Comment: Speci men Type: BLOOD SPECIMENOrdering Facility: [facility] Address: [address] [address] Performed By: #### 5 7021-8 ####[facility]ORATORYCLIA [id number] [address] [place] Nucleated RBC/100 WBC (Bld) [Ratio] 0.0 /100 WBC Normal [facility] Comment on above: Order Comment: Speci men Type: BLOOD SPECIMENOrdering Facility: [facility] Address: [address] [place] [address] Performed By: #### 5 7021-8 ####[facility]ORATORYCLIA [id number] [address] [place] Platelet mean volume (Bld) [Entitic vol] 10.8 fL Normal 9.0-12.7 [facility] Comment on above: Order Comment: Speci men Type: BLOOD SPECIMENOrdering Facility: [facility] Address: [address] [place] [address] Performed By: #### 5 7021-8 ####[facility]ORATORYCLIA [id number] [place] [address] [place] Platelets (Bld) [#/Vol] 362 10*3/uL Normal 150-400 [facility] Comment on above: Order Comment: Speci men Type: BLOOD SPECIMENOrdering Facility: [facility] Address: [address] [place] [address] Performed By: #### 5 7021-8 ####[facility]ORATORYCLIA [id number] [place] [address] [place] RBC (Bld) [#/Vol] 3.45 10*6/uL Low 4.20-6.00 [facility] Comment on above: Order Comment: Speci men Type: BLOOD SPECIMENOrdering Facility: [facility] Address: [address] [place] [address] Performed By: #### 5 7021-8 ####[facility]ORATORYCLIA [id number] [address] [place] WBC (Bld) [#/Vol] 11.38 10*3/uL High 3.70-11.00 [facility] Comment on above: Order Comment: Speci men Type: BLOOD SPECIMENOrdering Facility: [facility] Address: [address] [place] [address] Performed By: #### 5 7021-8 ####[facility]ORATORYCLIA [id number] [address] Magnesium SerPl-mCncon 07-22 Magnesium [Mass/Vol] 2.3 mg/dL Normal 1.7-2.3 [facility] Comment on above: Order Comment: Speci men Type: BLOOD SPECIMENOrdering Facility: [facility] Address: [address] [place] [address] Performed By: #### 1 9123-9, 2777-1, 20360-3 ####[facility]ORATORYCLIA [id number] [address] NT-proBNP SerPl-ncon 07-22 Natriuretic peptide.B prohormone N-Terminal [Mass/Vol] 328 pg/mL High <125 [facility] Comment on above: Order Comment: Speci men Type: BLOOD SPECIMENOrdering Facility: [facility] Address: [address] [place] [address] Performed By: #### 1 9123-9, 2777-1, 94098-8 ####[facility]ORATORYCLIA [id number] [address] [place] NURSING PROGon 07-22-2021 NURSING PROG Normal [facility] NUTRITIONon 07-22-2021 NUTRITION Normal [facility] Phosphate SerPl-mCncon 07-22 Phosphate [Mass/Vol] 3.5 mg/dL Normal 2.7-4.8 [facility] Comment on above: Order Comment: Speci men Type: BLOOD SPECIMENOrdering Facility: [facility] Address: [address] [place] [address] Performed By: #### 1 9123-9, 2777-1, 13891-0 ####[facility]ORATORYCLIA [id number] [address] THERAPY NTon 07-22-2021 THERAPY NT Normal [facility] THERAPY NT Normal [facility] aPTT PPPon 07-22-2021 aPTT Coag (PPP) [Time] 50.1 s High 23.0-32.[address] [facility] Comment on above: Order Comment: Speci men Type: BLOOD SPECIMENOrdering Facility: [facility] Address: [address] [place] [address] Performed By: #### 1 4979-9 ####[facility]ORATORYCLIA [id number] [address] OF [facility] ALLIED HEALTHon 07-21-2021 ALLIED HEALTH Normal [facility] Bacteria Spec Resp Culton Bacteria identified Respiratory culture Nom (Unsp spec) Abnormal [facility] Comment on above: Performed By: #### 3 2355-0 ####[facility]ORATORYCLIA [id number] [address] [place] Basic metabolic 2000 panelon 07-21-2021 Anion gap [Moles/Vol] 9 mmol/L Normal - [facility] Comment on above: Order Comment: Speci men Type: BLOOD SPECIMENOrdering Facility: [facility] Address: [address] [place] [address] Performed By: #### 1 9123-9, 2777-, 94919-8 ####[facility]ATORYCLIA [id number] [address] [place] Calcium [Mass/Vol] 9.9 mg/dL Normal 8.5-10.2 [facility] Comment on above: Order Comment: Speci men Type: BLOOD SPECIMENOrdering Facility: [facility] Address: [facility] [address] Performed By: #### 1 9123-9, 2777-1, 26284-7 ####[facility]ORATORYCLIA [id number] [address] [place] Chloride [Moles/Vol] 103 mmol/L Normal 97-105 [facility] Comment on above: Order Comment: Speci francia Type: BLOOD SPECIMENOrdering Facility: [facility] Address: [address] [place] [address] Performed By: #### 1 9123-9, 2777-1, 05842-8 ####[facility]ORATORYCLIA [id number] [address] [place] CO2 [Moles/Vol] 33 mmol/L High 22-30 [facility] Comment on above: Order Comment: Speci men Type: BLOOD SPECIMENOrdering Facility: [facility] Address: [address] [place] [address] Performed By: #### 1 9123-9, 2777-1, 13588-4 ####[facility]ITALCL[facility] [id number] [address] Creatinine [Mass/Vol] 0.80 mg/dL Normal 0.73-1.22 [facility] Comment on above: Order Comment: Speci men Type: BLOOD SPECIMENOrdering Facility: [facility] Address: [address] [place] [address] Performed By: #### 1 9123-9, 2777-1, 10392-5 ####[facility]ORATORYCLIA [id number] [address] ESTIMATED GLOMERULAR FILTRATION RATE 96 mL/min/1.73m??? Normal >=60 [facility] Comment on above: Order Comment: Speci men Type: BLOOD SPECIMENOrdering Facility: [facility] Address: [address] [place] [address] Result Comment: Luzmaria mated Glomerular Filtration Rate [...] GFR. Performed By: #### 1 9123-9, 2777-, 44697-3 ####[facility]ORATORYCLIA [id number] [place] [address] [place] Glucose [Mass/Vol] 148 mg/dL High 74-99 [facility] Comment on above: Order Comment: Shira feldman Type: BLOOD SPECIMENOrdering Facility: [facility] Address: [address] [place] [address] Result Comment: The [place] Diabetes Association (ADA) provides guidance for cutoff [...] Standards of Medical Care in Diabetes 2016, [place] Diabetes [employer]. Diabetes Care. 2016.39(Suppl 1). Performed By: #### 1 9123-9, 2777-, 40196-2 ####[facility]ITALCLIA [id number] [place] [address] [place] Potassium [Moles/Vol] 4.1 mmol/L Normal 3.7-5.1 [facility] Comment on above: Order Comment: Shira feldman Type: BLOOD SPECIMENOrdering Facility: [facility] Address: [address] [id number] Performed By: #### 1 9123-9, 2777-, 03066-2 ####[facility]ORATORYCLIA [id number] [place] [address] [place] Sodium [Moles/Vol] 145 mmol/L High 136-144 [facility] Comment on above: Order Comment: Shira feldman Type: BLOOD SPECIMENOrdering Facility: [facility] Address: [address] [address] Performed By: #### 1 9123-9, 2777-1, 29603-1 ####[facility]ORATORYCLIA [id number] [address] STATES [facility] Urea nitrogen [Mass/Vol] 40 mg/dL High 9-24 [facility] Comment on above: Order Comment: Speci men Type: BLOOD SPECIMENOrdering Facility: [facility] Address: [address] [place] [address] Performed By: #### 1 9123-9, 2777-1, 01599-3 ####[facility]ORATORYCLIA [id number] [address] CBC W Auto Differential pane l (Bld)on 07-21-2021 Basophils (Bld) [#/Vol] 0.06 10*3/uL Normal <0.11 [facility] Comment on above: Order Comment: Speci men Type: BLOOD SPECIMENOrdering Facility: [facility] Address: [address] [place] [address] Performed By: #### 5 7021-8 ####[facility]ORATORYCLIA [id number] [address] STATES [facility] Basophils/100 WBC (Bld) 0.4 % Normal [facility] Comment on above: Order Comment: Speci men Type: BLOOD SPECIMENOrdering Facility: [facility] Address: [address] [place] [address] Performed By: #### 5 7021-8 ####[facility]ORATORYCLIA [id number] [address] Differential cell count method Nom (Bld) Auto Normal [facility] Comment on above: Order Comment: Speci men Type: BLOOD SPECIMENOrdering Facility: [facility] Address: [address] [place] [address] Performed By: #### 5 7021-8 ####[facility]ORATORYCLIA [id number] [address] [place] Eosinophils (Bld) [#/Vol] 0.04 10*3/uL Normal <0.46 [facility] Comment on above: Order Comment: Speci men Type: BLOOD SPECIMENOrdering Facility: [facility] Address: [address] [place] [address] Performed By: #### 5 7021-8 ####[facility]ORATORYCLIA [id number] [address] [place] Eosinophils/100 WBC (Bld) 0.3 % Normal [facility] Comment on above: Order Comment: Speci men Type: BLOOD SPECIMENOrdering Facility: [facility] Address: [address] [place] [address] Performed By: #### 5 7021-8 ####[facility]ORATORYCLIA [id number] [address] STATES [facility] Erythrocyte distribution width (RBC) [Ratio] 17.0 % High 11.5-15.0 [facility] Comment on above: Order Comment: Speci men Type: BLOOD SPECIMENOrdering Facility: [facility] Address: [address] [place] [address] Performed By: #### 5 7021-8 ####[facility]ORATORYCLIA [id number] [address] [place] Hematocrit (Bld) [Volume fraction] 33.1 % Low 39.0-51.0 [facility] Comment on above: Order Comment: Speci men Type: BLOOD SPECIMENOrdering Facility: [facility] Address: [address] [place] [address] Performed By: #### 5 7021-8 ####[facility]ORATORYCLIA [id number] [address] [place] Hemoglobin (Bld) [Mass/Vol] 9.7 g/dL Low 13.0-17.0 [facility] Comment on above: Order Comment: Speci men Type: BLOOD SPECIMENOrdering Facility: [facility] Address: [address] [place] [address] Performed By: #### 5 7021-8 ####[facility]ATORYCLIA [id number] [address] IMMATURE GRAN % 0.5 % Normal [facility] Comment on above: Order Comment: Speci men Type: BLOOD SPECIMENOrdering Facility: [facility] Address: [address] [place] [address] Performed By: #### 5 7021-8 ####[facility]ORYCLIA [id number] [address] IMMATURE GRAN ABS 0.07 k/uL Normal <0.10 [facility] Comment on above: Order Comment: Speci men Type: BLOOD SPECIMENOrdering Facility: [facility] Address: [address] [place] [address] Performed By: #### 5 7021-8 ####[facility]ATORYCLIA [id number] [address] Lymphocytes (Bld) [#/Vol] 1.99 10*3/uL Normal 1.00-4.00 [facility] Comment on above: Order Comment: Speci men Type: BLOOD SPECIMENOrdering Facility: [facility] Address: [address] [place] [address] Performed By: #### 5 7021-8 ####[facility]ORYCLIA [id number] [address] Lymphocytes/100 WBC (Bld) 13.4 % Normal [facility] Comment on above: Order Comment: Speci men Type: BLOOD SPECIMENOrdering Facility: [facility] Address: [address] [place] [address] Performed By: #### 5 7021-8 ####[facility]ORATORYCLIA [id number] [address] MCH (RBC) [Entitic mass] 27.2 pg Normal 26.0-34.0 [facility] Comment on above: Order Comment: Speci men Type: BLOOD SPECIMENOrdering Facility: [facility] Address: [address] [place] [address] Performed By: #### 5 7021-8 ####[facility] LABORATORYCLIA [id number] [address] [address] [place] MCHC (RBC) [Mass/Vol] 29.3 g/dL Low 30.5-36.0 [facility] Comment on above: Order Comment: Speci men Type: BLOOD SPECIMENOrdering Facility: [facility] Address: [address] [place] [address] Performed By: #### 5 7021-8 ####[facility] LABORATORYCLIA [id number] [address] [place] MCV (RBC) [Entitic vol] 92.7 fL Normal 80.0-100.0 [facility] Comment on above: Order Comment: Speci men Type: BLOOD SPECIMENOrdering Facility: [facility] Address: [address] [place] [address] Performed By: #### 5 7021-8 ####[facility] LABORATORYCLIA [id number] [address] [place] Monocytes (Bld) [#/Vol] 1.10 10*3/uL High <0.87 [facility] Comment on above: Order Comment: Speci men Type: BLOOD SPECIMENOrdering Facility: [facility] Address: [address] [place] [address] Performed By: #### 5 7021-8 ####[facility] LABORATORYCLIA [id number] [address] STATES [facility] Monocytes/100 WBC (Bld) 7.4 % Normal [facility] Comment on above: Order Comment: Speci men Type: BLOOD SPECIMENOrdering Facility: [facility] Address: [address] [place] [address] Performed By: #### 5 7021-8 ####[facility] LABORATORYCLIA [id number] [place] [address] [place] Neutrophils (Bld) [#/Vol] 11.61 10*3/uL High 1.45-7.50 [facility] Comment on above: Order Comment: Speci men Type: BLOOD SPECIMENOrdering Facility: [facility] Address: [address] [place] [address] Performed By: #### 5 7021-8 ####[facility] LABORATORYCLIA [id number] [address] Neutrophils/100 WBC (Bld) 78.0 % Normal [facility] Comment on above: Order Comment: Speci men Type: BLOOD SPECIMENOrdering Facility: [facility] Address: [address] [place] [address] Performed By: #### 5 7021-8 ####[facility]ORATORYCLIA [id number] [address] [place] Nucleated RBC (Bld) [#/Vol] 10*3/uL Normal <0.01 [facility] Comment on above: Order Comment: Speci men Type: BLOOD SPECIMENOrdering Facility: [facility] Address: [address] [place] [address] Performed By: #### 5 7021-8 ####[facility] LABORATORYCLIA [id number] [address] Nucleated RBC/100 WBC (Bld) [Ratio] 0.0 /100 WBC Normal [facility] Comment on above: Order Comment: Speci men Type: BLOOD SPECIMENOrdering Facility: [facility] Address: [address] [place] [address] Performed By: #### 5 7021-8 ####[facility]ORATORYCLIA [id number] [place] [address] [place] Platelet mean volume (Bld) [Entitic vol] 10.4 fL Normal 9.0-12.7 [facility] Comment on above: Order Comment: Speci men Type: BLOOD SPECIMENOrdering Facility: [facility] Address: [address] [place] [address] Performed By: #### 5 7021-8 ####[facility] LABORATORYCLIA [id number] [address] OF [facility] Platelets (Bld) [#/Vol] 396 10*3/uL Normal 150-400 [facility] Comment on above: Order Comment: Speci men Type: BLOOD SPECIMENOrdering Facility: [facility] Address: [address] [place] [address] Performed By: #### 5 7021-8 ####[facility] LABORATORYCLIA [id number] [address] OF [facility] RBC (Bld) [#/Vol] 3.57 10*6/uL Low 4.20-6.00 [facility] Comment on above: Order Comment: Speci men Type: BLOOD SPECIMENOrdering Facility: [facility] Address: [address] [place] [address] Performed By: #### 5 7021-8 ####[facility] LABORATORYCLIA [id number] [address] OF [facility] WBC (Bld) [#/Vol] 14.87 10*3/uL High 3.70-11.00 [facility] Comment on above: Order Comment: Speci men Type: BLOOD SPECIMENOrdering Facility: [facility] Address: [address] [place] [address] Performed By: #### 5 7021-8 ####[facility]ORATORYCLIA [id number] [address] Gas and Carbon monoxide pane l (BldV)on 07-21-2021 Base excess Calc (BldV) [Moles/Vol] 7 mmol/L High 0-2 [facility] Comment on above: Order Comment: Speci men Type: VENOUS BLOOD SPECIMENOrdering Facility: [facility] Address: [address] [place] [address] Performed By: #### 2 4344-4 ####[facility] LABORATORYCLIA [id number] [address] Body temperature 98.6 [degF] Normal [facility] Comment on above: Order Comment: Speci men Type: VENOUS BLOOD SPECIMENOrdering Facility: [facility] Address: [address] [place] [address] Performed By: #### 2 4344-4 ####[facility] LABORATORYCLIA [id number] [address] [place] CALCIUM IONIZED, PH CORRECTED 1.21 mmol/L Normal 1.08-1.30 [facility] Comment on above: Order Comment: Speci men Type: VENOUS BLOOD SPECIMENOrdering Facility: [facility] Address: [address] [place] [address] Performed By: #### 2 4344-4 ####[facility] LABORATORYCLIA [id number] [address] OF [facility] Calcium.ionized (BldV) [Mass/Vol] 1.23 mmol/L Normal 1.08-1.30 [facility] Comment on above: Order Comment: Speci men Type: VENOUS BLOOD SPECIMENOrdering Facility: [facility] Address: [address] [place] [address] Performed By: #### 2 4344-4 ####[facility] LABORATORYCLIA [id number] [address] [place] Carboxyhemoglobin (BldV) [Mass fraction] 2.3 % High 0.0-2.0 [facility] Comment on above: Order Comment: Speci men Type: VENOUS BLOOD SPECIMENOrdering Facility: [facility] Address: [address] [place] [address] Result Comment: Carb oxyhemoglobin Reference Range for Smokers: 2.0-8.0% Performed By: #### 2 4344-4 ####[facility]ORATORYCLIA [id number] [address] [place] CO2 (BldV) [Partial pressure] 58 mm[Hg] High 42-55 [facility] Comment on above: Order Comment: Speci men Type: VENOUS BLOOD SPECIMENOrdering Facility: [facility] Address: [address] [place] [address] Performed By: #### 2 4344-4 ####[facility]ORATORYCLIA [id number] [place] [address] [place] CO2 [Moles/Vol] 31 mmol/L High 25-29 [facility] Comment on above: Order Comment: Speci men Type: VENOUS BLOOD SPECIMENOrdering Facility: [facility] Address: [address] [place] [address] Performed By: #### 2 4344-4 ####[facility]ORATORYCLIA [id number] [place] [address] [place] Glucose [Mass/Vol] 146 mg/dL High 60-105 [facility] Comment on above: Order Comment: Speci men Type: VENOUS BLOOD SPECIMENOrdering Facility: [facility] Address: [address] [place] [address] Performed By: #### 2 4344-4 ####[facility] LABORATORYCLIA [id number] [place] [address] [place] HCO3 (Bld) [Moles/Vol] 33 mmol/L High 24-[address] [facility] Comment on above: Order Comment: Speci men Type: VENOUS BLOOD SPECIMENOrdering Facility: [facility] Address: [address] [place] [address] Performed By: #### 2 4344-4 ####[facility] LABORATORYCLIA [id number] [place] [address] [place] Hematocrit (Bld) [Volume fraction] 30.1 % Low 39.0-51.0 [facility] Comment on above: Order Comment: Speci men Type: VENOUS BLOOD SPECIMENOrdering Facility: [facility] Address: [address] [place] [address] Performed By: #### 2 4344-4 ####[facility] LABORATORYCLIA [id number] [place] [address] [place] Hemoglobin (Bld) [Mass/Vol] 9.7 g/dL Low 13.0-17.0 [facility] Comment on above: Order Comment: Speci men Type: VENOUS BLOOD SPECIMENOrdering Facility: [facility] Address: [address] [address] Performed By: #### 2 4344-4 ####[facility] LABORATORYCLIA [id number] [address] [place] Methemoglobin (Bld) [Mass fraction] % Normal 0.0-1.5 [facility] Comment on above: Order Comment: Speci men Type: VENOUS BLOOD SPECIMENOrdering Facility: [facility] Address: [address] [address] Performed By: #### 2 4344-4 ####[facility] LABORATORYCLIA [id number] [address] O2 THERAPY NC = Nasal Cannula Normal [facility] Comment on above: Order Comment: Speci men Type: VENOUS BLOOD SPECIMENOrdering Facility: [facility] Address: [address] [address] Performed By: #### 2 4344-4 ####[facility] LABORATORYCLIA [id number] [address] [place] Oxygen (BldV) [Partial pressure] 64 mm[Hg] High 35-45 [facility] Comment on above: Order Comment: Speci men Type: VENOUS BLOOD SPECIMENOrdering Facility: [facility] Address: [address] [address] Performed By: #### 2 4344-4 ####[facility]ATORYCLIA [id number] [address] [place] Oxygen saturation in Blood 90 % High 60-85 [facility] Comment on above: Order Comment: Speci men Type: VENOUS BLOOD SPECIMENOrdering Facility: [facility] Address: [address] [address] Performed By: #### 2 4344-4 ####[facility] LABORATORYCLIA [id number] [address] [place] Oxyhemoglobin (BldV) [Mass fraction] 87 % High 60-85 [facility] Comment on above: Order Comment: Speci men Type: VENOUS BLOOD SPECIMENOrdering Facility: [facility] Address: [address] [place] [address] Performed By: #### 2 4344-4 ####[facility] LABORATORYCLIA [id number] [place] [address] [place] pH (BldV) 7.38 [pH] Normal 7.32-7.42 [facility] Comment on above: Order Comment: Speci men Type: VENOUS BLOOD SPECIMENOrdering Facility: [facility] Address: [address] [place] [address] Performed By: #### 2 4344-4 ####[facility] LABORATORYCLIA [id number] [place] [address] [place] Potassium [Moles/Vol] 3.8 mmol/L Normal 3.5-5.0 [facility] Comment on above: Order Comment: Speci men Type: VENOUS BLOOD SPECIMENOrdering Facility: [facility] Address: [address] [place] [address] Performed By: #### 2 4344-4 ####[facility]ORATORYCLIA [id number] [address] [place] Sodium [Moles/Vol] 145 mmol/L High 136-144 [facility] Comment on above: Order Comment: Speci men Type: VENOUS BLOOD SPECIMENOrdering Facility: [facility] Address: [address] [place] [address] Performed By: #### 2 4344-4 ####[facility] LABORATORYCLIA [id number] [place] [address] [place] Base excess Calc (BldV) [Moles/Vol] 8 mmol/L High 0-2 [facility] Comment on above: Order Comment: Speci men Type: VENOUS BLOOD SPECIMENOrdering Facility: [facility] Address: [address] [place] [address] Performed By: #### 2 4344-4 ####[facility] LABORATORYCLIA [id number] [address] Body temperature 100.22 [degF] Normal [facility] Comment on above: Order Comment: Speci men Type: VENOUS BLOOD SPECIMENOrdering Facility: [facility] Address: [address] [place] [address] Performed By: #### 2 4344-4 ####[facility] LABORATORYCLIA [id number] [address] OF [facility] CALCIUM IONIZED, PH CORRECTED 1.25 mmol/L Normal 1.08-1.30 [facility] Comment on above: Order Comment: Speci men Type: VENOUS BLOOD SPECIMENOrdering Facility: [facility] Address: [address] [place] [address] Performed By: #### 2 4344-4 ####[facility]ORATORYCLIA [id number] [address] STATES [facility] Calcium.ionized (BldV) [Mass/Vol] 1.24 mmol/L Normal 1.08-1.30 [facility] Comment on above: Order Comment: Speci men Type: VENOUS BLOOD SPECIMENOrdering Facility: [facility] Address: [address] [place] [address] Performed By: #### 2 4344-4 ####[facility] LABORATORYCLIA [id number] [address] [place] Carboxyhemoglobin (BldV) [Mass fraction] 2.5 % High 0.0-2.0 [facility] Comment on above: Order Comment: Speci men Type: VENOUS BLOOD SPECIMENOrdering Facility: [facility] Address: [address] [place] [address] Result Comment: Carb oxyhemoglobin Reference Range for Smokers: 2.0-8.0% Performed By: #### 2 4344-4 ####[facility]ORATORYCLIA [id number] [address] [place] CO2 (BldV) [Partial pressure] 53 mm[Hg] Normal 42-55 [facility] Comment on above: Order Comment: Speci men Type: VENOUS BLOOD SPECIMENOrdering Facility: [facility] Address: [address] [place] [address] Performed By: #### 2 4344-4 ####[facility]ATORYCLIA [id number] [address] [place] CO2 [Moles/Vol] 31 mmol/L High 25-29 [facility] Comment on above: Order Comment: Speci men Type: VENOUS BLOOD SPECIMENOrdering Facility: [facility] Address: [address] [place] [address] Performed By: #### 2 4344-4 ####[facility]ORATORYCLIA [id number] [address] [place] CO2 adjusted to patient's actual temperature (BldV) [Partial pressure] 56 mmHg High 42-55 [facility] Comment on above: Order Comment: Speci men Type: VENOUS BLOOD SPECIMENOrdering Facility: [facility] Address: [address] [place] [address] Performed By: #### 2 4344-4 ####[facility] LABORATORYCLIA [id number] [place] [address] [place] Glucose [Mass/Vol] 131 mg/dL High 60-105 [facility] Comment on above: Order Comment: Speci men Type: VENOUS BLOOD SPECIMENOrdering Facility: [facility] Address: [address] [place] [address] Performed By: #### 2 4344-4 ####[facility]ATORYCLIA [id number] [place] [address] [place] HCO3 (Bld) [Moles/Vol] 33 mmol/L High 24-[address] [facility] Comment on above: Order Comment: Speci men Type: VENOUS BLOOD SPECIMENOrdering Facility: [facility] Address: [address] [place] [address] Performed By: #### 2 4344-4 ####[facility]ORATORYCLIA [id number] [place] [address] [place] Hematocrit (Bld) [Volume fraction] 30.8 % Low 39.0-51.0 [facility] Comment on above: Order Comment: Speci men Type: VENOUS BLOOD SPECIMENOrdering Facility: [facility] Address: [address] [address] Performed By: #### 2 4344-4 ####[facility]ORATORYCLIA [id number] [address] [place] Hemoglobin (Bld) [Mass/Vol] 10.0 g/dL Low 13.0-17.0 [facility] Comment on above: Order Comment: Speci men Type: VENOUS BLOOD SPECIMENOrdering Facility: [facility] Address: [address] [place] [address] Performed By: #### 2 4344-4 ####[facility] LABORATORYCLIA [id number] [address] [place] Methemoglobin (Bld) [Mass fraction] % Normal 0.0-1.5 [facility] Comment on above: Order Comment: Speci men Type: VENOUS BLOOD SPECIMENOrdering Facility: [facility] Address: [address] [place] [address] Performed By: #### 2 4344-4 ####[facility]ORATORYCLIA [id number] [address] [place] O2 THERAPY NC = Nasal Cannula Normal [facility] Comment on above: Order Comment: Speci men Type: VENOUS BLOOD SPECIMENOrdering Facility: [facility] Address: [address] [place] [address] Performed By: #### 2 4344-4 ####[facility]ORATORYCLIA [id number] [address] [place] Oxygen (BldV) [Partial pressure] 58 mm[Hg] High 35-45 [facility] Comment on above: Order Comment: Speci men Type: VENOUS BLOOD SPECIMENOrdering Facility: [facility] Address: [address] [address] Performed By: #### 2 4344-4 ####[facility]ORATORYCLIA [id number] [address] [place] Oxygen adjusted to patient's actual temperature (BldV) [Partial pressure] 61 mmHg High 35-45 [facility] Comment on above: Order Comment: Speci men Type: VENOUS BLOOD SPECIMENOrdering Facility: [facility] Address: [address] [place] [address] Performed By: #### 2 4344-4 ####[facility]ORATORYCLIA [id number] [address] [place] Oxygen saturation in Blood 88 % High 60-85 [facility] Comment on above: Order Comment: Speci men Type: VENOUS BLOOD SPECIMENOrdering Facility: [facility] Address: [address] [place] [address] Performed By: #### 2 4344-4 ####[facility]ORATORYCLIA [id number] [address] Oxyhemoglobin (BldV) [Mass fraction] 85 % Normal 60-85 [facility] Comment on above: Order Comment: Speci men Type: VENOUS BLOOD SPECIMENOrdering Facility: [facility] Address: [address] [place] [address] Performed By: #### 2 4344-4 ####[facility] LABORATORYCLIA [id number] [address] [place] pH (BldV) 7.41 [pH] Normal 7.32-7.42 [facility] Comment on above: Order Comment: Speci men Type: VENOUS BLOOD SPECIMENOrdering Facility: [facility] Address: [address] [place] [address] Performed By: #### 2 4344-4 ####[facility] LABORATORYCLIA [id number] [address] STATES [facility] pH adjusted to patient's actual temperature (BldV) 7.40 Normal 7.32-7.42 [facility] Comment on above: Order Comment: Speci men Type: VENOUS BLOOD SPECIMENOrdering Facility: [facility] Address: [address] [address] Performed By: #### 2 4344-4 ####[facility]ORATORYCLIA [id number] [place] [address] [place] Potassium [Moles/Vol] 4.0 mmol/L Normal 3.5-5.0 [facility] Comment on above: Order Comment: Speci men Type: VENOUS BLOOD SPECIMENOrdering Facility: [facility] Address: [address] [place] [address] Performed By: #### 2 4344-4 ####[facility]ORATORYCLIA [id number] [place] [address] [place] Sodium [Moles/Vol] 146 mmol/L High 136-144 [facility] Comment on above: Order Comment: Speci men Type: VENOUS BLOOD SPECIMENOrdering Facility: [facility] Address: [address] [place] [address] Performed By: #### 2 4344-4 ####[facility] LABORATORYCLIA [id number] [place] [address] [place] Magnesium SerPl-mCncon 07-21 Magnesium [Mass/Vol] 2.5 mg/dL High 1.7-2.3 [facility] Comment on above: Order Comment: Speci men Type: BLOOD SPECIMENOrdering Facility: [facility] Address: [address] [place] [address] Performed By: #### 1 9123-9, 2777-1, 02916-1 ####[facility] LABORATORYCLIA [id number] [place] [address] [place] NURSING PROGon 07-21-2021 NURSING PROG Normal [facility] Phosphate SerPl-mCncon 07-21 Phosphate [Mass/Vol] 3.7 mg/dL Normal 2.7-4.8 [facility] Comment on above: Order Comment: Speci men Type: BLOOD SPECIMENOrdering Facility: [facility] Address: [address] [place] [address] Performed By: #### 1 9123-9, 2777-1, 29526-5 ####[facility] LABORATORYCLIA [id number] [address] OF [facility] THERAPY NTon 07-21-2021 THERAPY NT Normal [facility] XR CHEST 1V FRONTALon 2021 XR CHEST 1V FRONTAL Normal [facility] aPTT PPPon 07-21-2021 aPTT Coag (PPP) [Time] 53.0 s High 23.0-32.[address] [facility] Comment on above: Order Comment: Speci men Type: BLOOD SPECIMENOrdering Facility: [facility] Address: [address] [place] [address] Performed By: #### 1 4979-9 ####[facility] LABORATORYCLIA [id number] [address] [place] ALLIED HEALTHon 07-20-2021 ALLIED HEALTH Normal [facility] Basic metabolic 2000 panelon 07-20-2021 Anion gap [Moles/Vol] 8 mmol/L Low 9-18 [facility] Comment on above: Order Comment: Speci men Type: BLOOD SPECIMENOrdering Facility: [facility] Address: [address] [place] [address] Performed By: #### 2 4321-2, , 2776-05 ####[facility] LABORATORYCLIA [id number] [place] [address] [place] [facility] Calcium [Mass/Vol] 9.7 mg/dL Normal 8.5-10.2 [facility] Comment on above: Order Comment: Speci men Type: BLOOD SPECIMENOrdering Facility: [facility] Address: [address] [place] [address] Performed By: #### 2 4321-2, , 2777 ####[facility] LABORATORYCLIA [id number] [place] [address] [place] Chloride [Moles/Vol] 104 mmol/L Normal 97-105 [facility] Comment on above: Order Comment: Speci men Type: BLOOD SPECIMENOrdering Facility: [facility] Address: [address] [place] [address] Performed By: #### 2 4321-2, , 2776-05 ####[facility]ITALCL[facility] [id number] [address] STATES OF [facility] CO2 [Moles/Vol] 34 mmol/L High 22-30 [facility] Comment on above: Order Comment: Speci men Type: BLOOD SPECIMENOrdering Facility: [facility] Address: [address] [place] [address] Performed By: #### 2 4321-2, , 2776-05 ####[facility]ITALCL[facility] [id number] [address] Creatinine [Mass/Vol] 0.76 mg/dL Normal 0.73-1.22 [facility] Comment on above: Order Comment: Speci men Type: BLOOD SPECIMENOrdering Facility: [facility] Address: [address] [place] [address] Performed By: #### 2 4321-2, , 2776-05 ####[facility] [id number] [address] ESTIMATED GLOMERULAR FILTRATION RATE 97 mL/min/1.73m??? Normal >=60 [facility] Comment on above: Order Comment: Speci men Type: BLOOD SPECIMENOrdering Facility: [facility] Address: [address] [place] [address] Result Comment: Luzmaria mated Glomerular Filtration Rate [...] 2776-05 ####[facility] LABORATORYCLIA [id number] [place] [address] [place] Glucose [Mass/Vol] 123 mg/dL High 74-99 [facility] Comment on above: Order Comment: Speci men Type: BLOOD SPECIMENOrdering Facility: [facility] Address: [address] [place], [place] [address] Result Comment: The [place] Diabetes Association (ADA) provides guidance for cutoff [...] Standards of Medical Care in Diabetes 2016, [place] Diabetes Association. Diabetes Care. 2016.39(Suppl 1). Performed By: #### 2 4321-2, , 2776-05 ####[facility]ATORYCLIA [id number] [place] [address] [place] Potassium [Moles/Vol] 4.4 mmol/L Normal 3.7-5.1 [facility] Comment on above: Order Comment: Shira francia Type: BLOOD SPECIMENOrdering Facility: [facility] Address: [address] [place], [place] [address] Performed By: #### 2 4321-2, , 2776-05 ####[facility] LABORATORYCLIA [id number] [place] [address] [place] Sodium [Moles/Vol] 146 mmol/L High 136-144 [facility] Comment on above: Order Comment: Speci men Type: BLOOD SPECIMENOrdering Facility: [facility] Address: [address] [place], [place] [address] Performed By: #### 2 4321-2, , 2776-05 ####[facility]ORATORYCLIA [id number] [place] [address] [place] Urea nitrogen [Mass/Vol] 38 mg/dL High 9-24 [facility] Comment on above: Order Comment: Speci men Type: BLOOD SPECIMENOrdering Facility: [facility] Address: [address] [place] [address] Performed By: #### 2 4321-2, 68550-2, 2777-1 ####[facility]ATORYCLIA [id number] [address] [place] CASE MANAGEMon 07-20-2021 CASE MANAGEM Normal [facility] CBC W Auto Differential pane l (Bld)on 07-20-2021 Basophils (Bld) [#/Vol] 0.05 10*3/uL Normal <0.11 [facility] Comment on above: Order Comment: Speci men Type: BLOOD SPECIMENOrdering Facility: [facility] Address: [address] [place] [address] Performed By: #### 5 7021-8 ####[facility]ATORYCLIA [id number] [place] [address] [place] Basophils/100 WBC (Bld) 0.5 % Normal [facility] Comment on above: Order Comment: Speci men Type: BLOOD SPECIMENOrdering Facility: [facility] Address: [address] [place] [address] Performed By: #### 5 7021-8 ####[facility]ORATORYCLIA [id number] [address] [place] Differential cell count method Nom (Bld) Auto Normal [facility] Comment on above: Order Comment: Speci men Type: BLOOD SPECIMENOrdering Facility: [facility] Address: [address] [place] [address] Performed By: #### 5 7021-8 ####[facility]ORATORYCLIA [id number] [place] [address] [place] Eosinophils (Bld) [#/Vol] 0.43 10*3/uL Normal <0.46 [facility] Comment on above: Order Comment: Speci men Type: BLOOD SPECIMENOrdering Facility: [facility] Address: [address] [place] [address] Performed By: #### 5 7021-8 ####[facility]ATORYCLIA [id number] [address] Eosinophils/100 WBC (Bld) 4.1 % Normal [facility] Comment on above: Order Comment: Speci men Type: BLOOD SPECIMENOrdering Facility: [facility] Address: [address] [place] [address] Performed By: #### 5 7021-8 ####[facility]ATORYCLIA [id number] [address] Erythrocyte distribution width (RBC) [Ratio] 16.7 % High 11.5-15.0 [facility] Comment on above: Order Comment: Speci men Type: BLOOD SPECIMENOrdering Facility: [facility] Address: [address] [place] [address] Performed By: #### 5 7021-8 ####[facility]ATORYCLIA [id number] [address] Hematocrit (Bld) [Volume fraction] 33.0 % Low 39.0-51.0 [facility] Comment on above: Order Comment: Speci men Type: BLOOD SPECIMENOrdering Facility: [facility] Address: [address] [place] [address] Performed By: #### 5 7021-8 ####[facility]ORATORYCLIA [id number] [address] Hemoglobin (Bld) [Mass/Vol] 9.7 g/dL Low 13.0-17.0 [facility] Comment on above: Order Comment: Speci men Type: BLOOD SPECIMENOrdering Facility: [facility] Address: [address] [place] [address] Performed By: #### 5 7021-8 ####[facility]ATORYCLIA [id number] [address] IMMATURE GRAN % 0.4 % Normal [facility] Comment on above: Order Comment: Speci men Type: BLOOD SPECIMENOrdering Facility: [facility] Address: [address] [place] [address] Performed By: #### 5 7021-8 ####[facility]ATORYCLIA [id number] [address] IMMATURE GRAN ABS 0.04 k/uL Normal <0.10 [facility] Comment on above: Order Comment: Speci men Type: BLOOD SPECIMENOrdering Facility: [facility] Address: [address] [place] [address] Performed By: #### 5 7021-8 ####[facility]ATORYCLIA [id number] [address] Lymphocytes (Bld) [#/Vol] 1.99 10*3/uL Normal 1.00-4.00 [facility] Comment on above: Order Comment: Speci men Type: BLOOD SPECIMENOrdering Facility: [facility] Address: [address] [place] [address] Performed By: #### 5 7021-8 ####[facility]ORATORYCLIA [id number] [address] Lymphocytes/100 WBC (Bld) 18.8 % Normal [facility] Comment on above: Order Comment: Speci men Type: BLOOD SPECIMENOrdering Facility: [facility] Address: [address] [place] [address] Performed By: #### 5 7021-8 ####[facility]ORATORYCLIA [id number] [address] [place] MCH (RBC) [Entitic mass] 27.8 pg Normal 26.0-34.0 [facility] Comment on above: Order Comment: Speci men Type: BLOOD SPECIMENOrdering Facility: [facility] Address: [address] [place] [address] Performed By: #### 5 7021-8 ####[facility]ORATORYCLIA [id number] [address] STATES OF [facility] MCHC (RBC) [Mass/Vol] 29.4 g/dL Low 30.5-36.0 [facility] Comment on above: Order Comment: Speci men Type: BLOOD SPECIMENOrdering Facility: [facility] Address: [address] [place] [address] Performed By: #### 5 7021-8 ####[facility]ATORYCLIA [id number] [address] MCV (RBC) [Entitic vol] 94.6 fL Normal 80.0-100.0 [facility] Comment on above: Order Comment: Speci men Type: BLOOD SPECIMENOrdering Facility: [facility] Address: [address] [place] [address] Performed By: #### 5 7021-8 ####[facility]ATORYCLIA [id number] [address] [place] Monocytes (Bld) [#/Vol] 0.82 10*3/uL Normal <0.87 [facility] Comment on above: Order Comment: Speci men Type: BLOOD SPECIMENOrdering Facility: [facility] Address: [address] [place] [address] Performed By: #### 5 7021-8 ####[facility]ORATORYCLIA [id number] [address] Monocytes/100 WBC (Bld) 7.8 % Normal [facility] Comment on above: Order Comment: Speci men Type: BLOOD SPECIMENOrdering Facility: [facility] Address: [address] [place] [address] Performed By: #### 5 7021-8 ####[facility]ORATORYCLIA [id number] [address] [place] Neutrophils (Bld) [#/Vol] 7.23 10*3/uL Normal 1.45-7.50 [facility] Comment on above: Order Comment: Speci men Type: BLOOD SPECIMENOrdering Facility: [facility] Address: [address] [place] [address] Performed By: #### 5 7021-8 ####[facility]ATORYCLIA [id number] [address] Neutrophils/100 WBC (Bld) 68.4 % Normal [facility] Comment on above: Order Comment: Speci men Type: BLOOD SPECIMENOrdering Facility: [facility] Address: [address] [place] [address] Performed By: #### 5 7021-8 ####[facility]ORATORYCLIA [id number] [address] [place] Nucleated RBC (Bld) [#/Vol] 10*3/uL Normal <0.01 [facility] Comment on above: Order Comment: Speci men Type: BLOOD SPECIMENOrdering Facility: [facility] Address: [address] [place] [address] Performed By: #### 5 7021-8 ####[facility]ORATORYCLIA [id number] [address] OF [place] Nucleated RBC/100 WBC (Bld) [Ratio] 0.0 /100 WBC Normal [facility] Comment on above: Order Comment: Speci men Type: BLOOD SPECIMENOrdering Facility: [facility] Address: [address] [place] [address] Performed By: #### 5 7021-8 ####[facility]ATORYCLIA [id number] [address] [place] Platelet mean volume (Bld) [Entitic vol] 10.5 fL Normal 9.0-12.7 [facility] Comment on above: Order Comment: Speci men Type: BLOOD SPECIMENOrdering Facility: [facility] Address: [address] [place] [address] Performed By: #### 5 7021-8 ####[facility]ORATORYCLIA [id number] [place] [address] [place] Platelets (Bld) [#/Vol] 400 10*3/uL Normal 150-400 [facility] Comment on above: Order Comment: Speci men Type: BLOOD SPECIMENOrdering Facility: [facility] Address: [address] [place] [address] Performed By: #### 5 7021-8 ####[facility]ORATORYCLIA [id number] [address] [place] RBC (Bld) [#/Vol] 3.49 10*6/uL Low 4.20-6.00 [facility] Comment on above: Order Comment: Speci men Type: BLOOD SPECIMENOrdering Facility: [facility] Address: [address] [place] [address] Performed By: #### 5 7021-8 ####[facility]ORATORYCLIA [id number] [address] WBC (Bld) [#/Vol] 10.56 10*3/uL Normal 3.70-11.00 [facility] Comment on above: Order Comment: Speci men Type: BLOOD SPECIMENOrdering Facility: [facility] Address: [address] [place] [address] Performed By: #### 5 7021-8 ####[facility]ORATORYCLIA [id number] [address] CONSULT PROGon 07-20-2021 CONSULT PROG Normal [facility] CT BRAIN WO IVCONon 07-21-[address] BRAIN WO IVCON Normal [facility] Magnesium SerPl-mCncon 07-20 Magnesium [Mass/Vol] 2.4 mg/dL High 1.7-2.3 [facility] Comment on above: Order Comment: Speci men Type: BLOOD SPECIMENOrdering Facility: [facility] Address: [address] [place] [address] Performed By: #### 2 4321-2, 25875-1, 2777-1 ####[facility]ATORYCLIA [id number] [address] [place] NUTRITIONon 07-20-2021 NUTRITION Normal [facility] Phosphate SerPl-mCncon 07-20 Phosphate [Mass/Vol] 4.1 mg/dL Normal 2.7-4.8 [facility] Comment on above: Order Comment: Speci men Type: BLOOD SPECIMENOrdering Facility: [facility] Address: [address] [place] [address] Performed By: #### 2 4321-2, 05425-8, 2777-1 ####[facility]ORATORYCLIA [id number] [place] [address] [place] aPTT PPPon 07-20-2021 aPTT Coag (PPP) [Time] 53.6 s High 23.0-32.[address] [facility] Comment on above: Order Comment: Speci men Type: BLOOD SPECIMENOrdering Facility: [facility] Address: [address] [place] [address] Performed By: #### 1 4979-9 ####[facility]ORATORYCLIA [id number] [place] [address] [place] Bacteria CSF Culton 07-20-19 22 Bacteria identified Cx Nom (CSF) CULTURE, CSF: No growth 14 days GRAM STAIN: No organisms seen No Polymorphonuclear Leukocytes Rare Mononuclear cells Gram stain performed on cytospun specimen. Normal [facility] Comment on above: Performed By: #### 6 06-4 ####[facility]ATORYCLIA [id number] [place] [address] [place] CONSULT PROGon 07-19-2021 CONSULT PROG Normal [facility] CSF MANUAL DIFFon 07-19-2021 DIF TTL, CSF 100 cells counted Normal [facility] Comment on above: Order Comment: Speci men Type: CEREBROSPINAL FLUIDOrdering Facility: [facility] Address: [address] [place] [address] Performed By: #### L [id number], 32506-6, [id number] ####[facility]ATORYCLIA [id number] [place] [address] [place] EOSIN%, CSF 1 % Normal [facility] Comment on above: Order Comment: Speci men Type: CEREBROSPINAL FLUIDOrdering Facility: [facility] Address: [address] [address] Performed By: #### L [id number], 01586-0, [id number] ####[facility]ATORYCLIA [id number] [place] [address] [place] LYMPH%, CSF 67 % Normal 50-90 [facility] Comment on above: Order Comment: Speci men Type: CEREBROSPINAL FLUIDOrdering Facility: [facility] Address: [address] [place] [address] Performed By: #### L [id number], 07831-2, [id number] ####[facility]ATORYCLIA [id number] [address] [place] MACRO%, CSF 1 % High <1 [facility] Comment on above: Order Comment: Speci men Type: CEREBROSPINAL FLUIDOrdering Facility: [facility] Address: [address] [place] [address] Performed By: #### L [id number], 57566-3, [id number] ####[facility]ATORYCLIA [id number] [address] [place] MONO%, CSF 18 % Normal 10-50 [facility] Comment on above: Order Comment: Speci men Type: CEREBROSPINAL FLUIDOrdering Facility: [facility] Address: [address] [address] Performed By: #### L VB2379, 96067-1, [id number] ####[facility] [facility]ATORYCLIA [id number] [address] [place] NEUT%, CSF 11 % High 0-3 [facility] Comment on above: Order Comment: Speci men Type: CEREBROSPINAL FLUIDOrdering Facility: [facility] Address: [facility] [place] [address] Performed By: #### L [id number], 09864-0, [id number] ####[facility] [facility]ATORYCLIA [id number] [address] [place] OTHER CL%, CSF 2 % Normal [facility] Comment on above: Order Comment: Speci men Type: CEREBROSPINAL FLUIDOrdering Facility: [facility] Address: [address] [place] [address] Result Comment: Path review to follow. Performed By: #### L ZH1280, 24199-9, [id number] ####[facility]ATORYCLIA [id number] [address] [place] CSF PATHOLOGIST INTERP (LAB REFLEX ORDER-NO BILL)on 07-19-2021 CSF STAFF REVIEW Normal [facility] Comment on above: Order Comment: Speci men Type: CEREBROSPINAL FLUIDOrdering Facility: [facility] Address: [address] [place] [address] Performed By: #### L [id number], 06777-7, [id number] ####[facility]ATORYCLIA [id number] [address] Pathologist name Reviewed by Wing Cummings MD [facility] Comment on above: Order Comment: Speci men Type: CEREBROSPINAL FLUIDOrdering Facility: [facility] Address: [address] [place] [address] Performed By: #### L [id number], 54041-2, [id number] ####[facility]ATORYCLIA [id number] [address] Cell count panel (CSF)on Clarity (CSF) Clear Normal Clear [facility] Comment on above: Order Comment: Speci men Type: CEREBROSPINAL FLUIDOrdering Facility: [facility] Address: [address] [place] [address] Performed By: #### L VF3095, 68304-9, [id number] ####[facility]ATORYCLIA [id number] [address] Clarity (Unsp spec) Not Indicated Normal Clear [facility] Comment on above: Order Comment: Speci men Type: CEREBROSPINAL FLUIDOrdering Facility: [facility] Address: [address] [address] Performed By: #### L CO0361, 74935-7, [id number] ####[facility] [facility]ATORYCLIA [id number] [address] Color (CSF) Colorless Normal Colorless [facility] Comment on above: Order Comment: Speci men Type: CEREBROSPINAL FLUIDOrdering Facility: [facility] Address: [address] [place] [address] Performed By: #### L XS1849, 57572-4, [id number] ####[facility]ATORYCLIA [id number] [address] OF [facility] Color (Spun CSF) Not Indicated Normal Colorless [facility] Comment on above: Order Comment: Speci men Type: CEREBROSPINAL FLUIDOrdering Facility: [facility] Address: [address] [place] [address] Performed By: #### L IJ0070, 43206-6, [id number] ####[facility]ATORYCLIA [id number] [address] CSF TUBE NUMBER [employer] Normal [facility] Comment on above: Order Comment: Speci men Type: CEREBROSPINAL FLUIDOrdering Facility: [facility] Address: [address] [place] [address] Performed By: #### L GL3891, 11665-9, [id number] ####[facility]ATORYCLIA [id number] [address] STATES OF [facility] RBC Manual cnt (CSF) [#/Vol] 0 cells/uL Normal 0-5 [facility] Comment on above: Order Comment: Speci men Type: CEREBROSPINAL FLUIDOrdering Facility: [facility] Address: [address] [place] [address] Performed By: #### L [id number], 69829-9, [id number] ####[facility] [facility]ATORYCLIA [id number] [address] OF [facility] WBC Manual cnt (CSF) [#/Vol] 2 cells/uL Normal 0-5 [facility] Comment on above: Order Comment: Speci men Type: CEREBROSPINAL FLUIDOrdering Facility: [facility] Address: [address] [place] [address] Performed By: #### L DU1177, 08721-0, [id number] ####[facility]ORATORYCLIA [id number] [address] [place] Glucose [facility] Glucose (CSF) [Mass/Vol] 69 mg/dL Normal 40-70 [facility] Comment on above: Order Comment: Speci men Type: CEREBROSPINAL FLUIDOrdering Facility: [facility] Address: [address] [place] [address] Result Comment: Lumb ar CSF glucose values of healthy patients are approximately 60% of the plasma values and must always be compared with a concurrently measured plasma value for adequate clinical interpretation.References: 1. Glucose HK (GLUC3) [package insert V 12.0 [place]]. [employer], [place], [place]. September 2015. 2. Michelle Moore, Loki HGarfield (2015). Chapter 7: Glucose and Lactate. F. Irina rose al.(eds.), Cerebrospinal Fluid in Clinical Neurology. [place]: [employer]. Performed By: #### 2 342-4, 2880-3 ####[facility]ORATORYCLIA [id number] [address] [place] NURSING PROGon 07-19-2021 NURSING PROG Normal [facility] NURSING PROG Normal [facility] Prot CSF-ncon 07-19-2021 Protein (CSF) [Mass/Vol] 51 mg/dL High 15-45 [facility] Comment on above: Order Comment: Speci men Type: CEREBROSPINAL FLUIDOrdering Facility: [facility] Address: [address] [place] [address] Performed By: #### 2 342-4, 2880-3 ####[facility]ORATORYCLIA [id number] [address] [place] THERAPY NTon 07-19-2021 THERAPY NT Normal [facility] Urinalysis complete panel (U )on 07-19-2021 Bilirubin Ql (U) Negative Normal Negative [facility] Comment on above: Order Comment: Speci men Type: URINE SPECIMENOrdering Facility: [facility] Address: [address] [place] [address] Performed By: #### 2 4356-8 ####[facility]ORATORYCLIA [id number] [address] Clarity (Unsp spec) Clear Normal Clear [facility] Comment on above: Order Comment: Speci men Type: URINE SPECIMENOrdering Facility: [facility] Address: [address] [place] [address] Performed By: #### 2 4356-8 ####[facility]ATORYCLIA [id number] [address] Color (U) Colorless Normal yellow [facility] Comment on above: Order Comment: Speci men Type: URINE SPECIMENOrdering Facility: [facility] Address: [address] [place] [address] Performed By: #### 2 4356-8 ####[facility]ATORYCLIA [id number] [address] Glucose Test strip (U) [Mass/Vol] Negative Normal Negative [facility] Comment on above: Order Comment: Speci men Type: URINE SPECIMENOrdering Facility: [facility] Address: [address] [place] [address] Performed By: #### 2 4356-8 ####[facility]ATORYCLIA [id number] [address] Hemoglobin Ql (U) Trace Abnormal Negative [facility] Comment on above: Order Comment: Speci men Type: URINE SPECIMENOrdering Facility: [facility] Address: [address] [place] [address] Performed By: #### 2 4356-8 ####[facility]ORATORYCLIA [id number] [address] [place] Hyaline casts (Urine sed) [#/Area] 1-3 /LPF Abnormal 0 /LPF [facility] Comment on above: Order Comment: Speci men Type: URINE SPECIMENOrdering Facility: [facility] Address: [address] [place] [address] Performed By: #### 2 4356-8 ####[facility] LABORATORYCLIA [id number] [address] Ketones Ql (U) Negative Normal Negative [facility] Comment on above: Order Comment: Speci men Type: URINE SPECIMENOrdering Facility: [facility] Address: [address] [place] [address] Performed By: #### 2 4356-8 ####[facility]ATORYCLIA [id number] [address] Leukocyte esterase Test strip Ql (U) Negative Normal Negative [facility] Comment on above: Order Comment: Speci men Type: URINE SPECIMENOrdering Facility: [facility] Address: [address] [place] [address] Performed By: #### 2 4356-8 ####[facility]ORATORYCLIA [id number] [address] STATES [facility] Nitrite Ql (U) Negative Normal Negative [facility] Comment on above: Order Comment: Speci men Type: URINE SPECIMENOrdering Facility: [facility] Address: [address] [place] [address] Performed By: #### 2 4356-8 ####[facility] LABORATORYCLIA [id number] [address] [place] pH (U) 7.0 [pH] Normal 5.0-8.0 [facility] Comment on above: Order Comment: Speci men Type: URINE SPECIMENOrdering Facility: [facility] Address: [address] [place] [address] Performed By: #### 2 4356-8 ####[facility]ATORYCLIA [id number] [address] [place] Protein (U) [Mass/Vol] Negative Normal Negative [facility] Comment on above: Order Comment: Speci men Type: URINE SPECIMENOrdering Facility: [facility] Address: [address] [place] [address] Performed By: #### 2 4356-8 ####[facility] LABORATORYCLIA [id number] [address] [place] RBC LM.HPF (Urine sed) [#/Area] 6-10 /HPF Abnormal 0-3 /HPF [facility] Comment on above: Order Comment: Speci men Type: URINE SPECIMENOrdering Facility: [facility] Address: [address] [place] [address] Performed By: #### 2 4356-8 ####[facility] LABORATORYCLIA [id number] [address] Specific gravity (U) [Rel density] 1.008 Normal 1.005-1.030 [facility] Comment on above: Order Comment: Speci men Type: URINE SPECIMENOrdering Facility: [facility] Address: [address] [place] [address] Performed By: #### 2 4356-8 ####[facility] LABORATORYCLIA [id number] [address] Urobilinogen Ql (U) Normal Normal Negative [facility] Comment on above: Order Comment: Speci men Type: URINE SPECIMENOrdering Facility: [facility] Address: [address] [place] [address] Performed By: #### 2 4356-8 ####[facility] LABORATORYCLIA [id number] [address] [place] WBC LM.HPF (Urine sed) [#/Area] 0-5 /HPF Normal 0-5 /HPF [facility] Comment on above: Order Comment: Speci men Type: URINE SPECIMENOrdering Facility: [facility] Address: [address] [place] [address] Performed By: #### 2 4356-8 ####[facility] LABORATORYCLIA [id number] [address] STATES OF [facility] Vancomycin random [Mass/Vol] on 07-19-2021 Vancomycin [Mass/Vol] 13.9 ug/mL Normal 10.0-20.0 [facility] Comment on above: Order Comment: Speci men Type: BLOOD SPECIMENOrdering Facility: [facility] Address: [address] [place] [address] Result Comment: Refe rence ranges and high/low indicator flags are provided as general guidelines only. The treating physician must determine appropriate target levels/dosing based on the specific clinical situation. Performed By: #### 4 091-5 ####[facility]ORATORYCLIA [id number] [address] STATES OF [facility] aPTT PPPon 07-19-2021 aPTT Coag (PPP) [Time] 53.9 s High 23.0-32.[address] [facility] Comment on above: Order Comment: Speci men Type: BLOOD SPECIMENOrdering Facility: [facility] Address: [address] [place] [address] Performed By: #### 1 4979-9 ####[facility]ITALCLIA [id number] [place] [address] [place] Basic metabolic 2000 panelon 07-18-2021 Anion gap [Moles/Vol] 6 mmol/L Low 9-18 [facility] Comment on above: Order Comment: Speci men Type: BLOOD SPECIMENOrdering Facility: [facility] Address: [address] [place] [address] Performed By: #### 2 4321-2, 81395-0, 2777-1 ####[facility]ATORYCLIA [id number] [address] [place] Calcium [Mass/Vol] 9.4 mg/dL Normal 8.5-10.2 [facility] Comment on above: Order Comment: Speci men Type: BLOOD SPECIMENOrdering Facility: [facility] Address: [address] [place] [address] Performed By: #### 2 4321-2, , 2776-05 ####[facility] LABORATORYCLIA [id number] [place] [id number] [place] Chloride [Moles/Vol] 103 mmol/L Normal 97-105 [facility] Comment on above: Order Comment: Speci men Type: BLOOD SPECIMENOrdering Facility: [facility] Address: [address] [place] [address] Performed By: #### 2 4321-2, , 2776-05 ####[facility] LABORATORYCLIA [id number] [place] [address] [place] CO2 [Moles/Vol] 34 mmol/L High 22-30 [facility] Comment on above: Order Comment: Speci men Type: BLOOD SPECIMENOrdering Facility: [facility] Address: [address] [place] [address] Performed By: #### 2 4321-2, , 2776-05 ####[facility] LABORATORYCLIA [id number] [address] STATES OF [facility] Creatinine [Mass/Vol] 0.75 mg/dL Normal 0.73-1.22 [facility] Comment on above: Order Comment: Speci men Type: BLOOD SPECIMENOrdering Facility: [facility] Address: [address] [place] [address] Performed By: #### 2 4321-2, , 2776-05 ####[facility]ORATORYCLIA [id number] [address] ESTIMATED GLOMERULAR FILTRATION RATE 98 mL/min/1.73m??? Normal >=60 [facility] Comment on above: Order Comment: Speci men Type: BLOOD SPECIMENOrdering Facility: [facility] Address: [address] [place] [address] Result Comment: Luzmaria mated Glomerular Filtration Rate [...] 2776-05 ####[facility]ORATORYCLIA [id number] [place] [address] [place] Glucose [Mass/Vol] 125 mg/dL High 74-99 [facility] Comment on above: Order Comment: Shira feldman Type: BLOOD SPECIMENOrdering Facility: [facility] Address: [address] [place] [id number] Result Comment: The [place] Diabetes Association (ADA) provides guidance for cutoff [...] Standards of Medical Care in Diabetes 2016, [place] Diabetes Association. Diabetes Care. 2016.39(Suppl 1). Performed By: #### 2 4321-2, , 2776-05 ####[facility]ORATORYCLIA [id number] [place] [address] [place] Potassium [Moles/Vol] 4.4 mmol/L Normal 3.7-5.1 [facility] Comment on above: Order Comment: Shira feldman Type: BLOOD SPECIMENOrdering Facility: [facility] Address: [address] [place] [address] Performed By: #### 2 4321-2, , 2776-05 ####[facility]ORATORYCLIA [id number] [place] [address] [place] Sodium [Moles/Vol] 143 mmol/L Normal 136-144 [facility] Comment on above: Order Comment: Speci men Type: BLOOD SPECIMENOrdering Facility: [facility] Address: [address] [place] [address] Performed By: #### 2 4321-2, , 2776-05 ####[facility]ORATORYCLIA [id number] [address] STATES [facility] Urea nitrogen [Mass/Vol] 33 mg/dL High 9-24 [facility] Comment on above: Order Comment: Speci men Type: BLOOD SPECIMENOrdering Facility: [facility] Address: [address] [place] [address] Performed By: #### 2 4321-2, , 2776-05 ####[facility]ORATORYCLIA [id number] [address] [place] CASE MANAGEMon 07-18-2021 CASE MANAGEM Normal [facility] CBC W Auto Differential pane l (Bld)on 07-18-2021 Basophils (Bld) [#/Vol] 0.05 10*3/uL Normal <0.11 [facility] Comment on above: Order Comment: Speci men Type: BLOOD SPECIMENOrdering Facility: [facility] Address: [address] [place] [address] Performed By: #### 5 7021-8 ####[facility] LABORATORYCLIA [id number] [address] STATES [facility] Basophils/100 WBC (Bld) 0.5 % Normal [facility] Comment on above: Order Comment: Speci men Type: BLOOD SPECIMENOrdering Facility: [facility] Address: [address] [place] [address] Performed By: #### 5 7021-8 ####[facility] LABORATORYCLIA [id number] [address] STATES OF [facility] Differential cell count method Nom (Bld) Auto Normal [facility] Comment on above: Order Comment: Speci men Type: BLOOD SPECIMENOrdering Facility: [facility] Address: [address] [place] [address] Performed By: #### 5 7021-8 ####[facility]ATORYCLIA [id number] [address] [place] Eosinophils (Bld) [#/Vol] 0.44 10*3/uL Normal <0.46 [facility] Comment on above: Order Comment: Speci men Type: BLOOD SPECIMENOrdering Facility: [facility] Address: [address] [place] [address] Performed By: #### 5 7021-8 ####[facility]ATORYCLIA [id number] [address] Eosinophils/100 WBC (Bld) 4.3 % Normal [facility] Comment on above: Order Comment: Speci men Type: BLOOD SPECIMENOrdering Facility: [facility] Address: [address] [place] [address] Performed By: #### 5 7021-8 ####[facility] LABORATORYCLIA [id number] [address] Erythrocyte distribution width (RBC) [Ratio] 16.6 % High 11.5-15.0 [facility] Comment on above: Order Comment: Speci men Type: BLOOD SPECIMENOrdering Facility: [facility] Address: [address] [place] [address] Performed By: #### 5 7021-8 ####[facility] LABORATORYCLIA [id number] [address] Hematocrit (Bld) [Volume fraction] 32.2 % Low 39.0-51.0 [facility] Comment on above: Order Comment: Speci men Type: BLOOD SPECIMENOrdering Facility: [facility] Address: [address] [place] [address] Performed By: #### 5 7021-8 ####[facility]ORATORYCLIA [id number] [address] [place] Hemoglobin (Bld) [Mass/Vol] 9.5 g/dL Low 13.0-17.0 [facility] Comment on above: Order Comment: Speci men Type: BLOOD SPECIMENOrdering Facility: [facility] Address: [address] [place] [address] Performed By: #### 5 7021-8 ####[facility]ORATORYCLIA [id number] [address] IMMATURE GRAN % 0.4 % Normal [facility] Comment on above: Order Comment: Speci men Type: BLOOD SPECIMENOrdering Facility: [facility] Address: [address] [place] [address] Performed By: #### 5 7021-8 ####[facility]ORATORYCLIA [id number] [address] IMMATURE GRAN ABS 0.04 k/uL Normal <0.10 [facility] Comment on above: Order Comment: Speci men Type: BLOOD SPECIMENOrdering Facility: [facility] Address: [address] [place] [address] Performed By: #### 5 7021-8 ####[facility] LABORATORYCLIA [id number] [address] Lymphocytes (Bld) [#/Vol] 1.71 10*3/uL Normal 1.00-4.00 [facility] Comment on above: Order Comment: Speci men Type: BLOOD SPECIMENOrdering Facility: [facility] Address: [address] [place] [address] Performed By: #### 5 7021-8 ####[facility]ORATORYCLIA [id number] [address] Lymphocytes/100 WBC (Bld) 16.9 % Normal [facility] Comment on above: Order Comment: Speci men Type: BLOOD SPECIMENOrdering Facility: [facility] Address: [address] [place] [address] Performed By: #### 5 7021-8 ####[facility]ORATORYCLIA [id number] [address] MCH (RBC) [Entitic mass] 27.9 pg Normal 26.0-34.0 [facility] Comment on above: Order Comment: Speci men Type: BLOOD SPECIMENOrdering Facility: [facility] Address: [address] [place] [address] Performed By: #### 5 7021-8 ####[facility]ORATORYCLIA [id number] [address] STATES [facility] MCHC (RBC) [Mass/Vol] 29.5 g/dL Low 30.5-36.0 [facility] Comment on above: Order Comment: Speci men Type: BLOOD SPECIMENOrdering Facility: [facility] Address: [address] [place] [address] Performed By: #### 5 7021-8 ####[facility]ORATORYCLIA [id number] [address] STATES OF [facility] MCV (RBC) [Entitic vol] 94.7 fL Normal 80.0-100.0 [facility] Comment on above: Order Comment: Speci men Type: BLOOD SPECIMENOrdering Facility: [facility] Address: [address] [place] [address] Performed By: #### 5 7021-8 ####[facility]ORATORYCLIA [id number] [address] Monocytes (Bld) [#/Vol] 0.69 10*3/uL Normal <0.87 [facility] Comment on above: Order Comment: Speci men Type: BLOOD SPECIMENOrdering Facility: [facility] Address: [address] [place] [address] Performed By: #### 5 7021-8 ####[facility]ORATORYCLIA [id number] [address] Monocytes/100 WBC (Bld) 6.8 % Normal [facility] Comment on above: Order Comment: Speci men Type: BLOOD SPECIMENOrdering Facility: [facility] Address: [address] [place] [address] Performed By: #### 5 7021-8 ####[facility]ORATORYCLIA [id number] [place] [address] [place] Neutrophils (Bld) [#/Vol] 7.19 10*3/uL Normal 1.45-7.50 [facility] Comment on above: Order Comment: Speci men Type: BLOOD SPECIMENOrdering Facility: [facility] Address: [address] [place] [address] Performed By: #### 5 7021-8 ####[facility]ORATORYCLIA [id number] [address] [place] Neutrophils/100 WBC (Bld) 71.1 % Normal [facility] Comment on above: Order Comment: Speci men Type: BLOOD SPECIMENOrdering Facility: [facility] Address: [address] [place] [address] Performed By: #### 5 7021-8 ####[facility]ORATORYCLIA [id number] [address] [place] Nucleated RBC (Bld) [#/Vol] 10*3/uL Normal <0.01 [facility] Comment on above: Order Comment: Speci men Type: BLOOD SPECIMENOrdering Facility: [facility] Address: [address] [place] [address] Performed By: #### 5 7021-8 ####[facility]ORATORYCLIA [id number] [address] [place] Nucleated RBC/100 WBC (Bld) [Ratio] 0.0 /100 WBC Normal [facility] Comment on above: Order Comment: Speci men Type: BLOOD SPECIMENOrdering Facility: [facility] Address: [address] [place] [address] Performed By: #### 5 7021-8 ####[facility]ORATORYCLIA [id number] [address] [place] Platelet mean volume (Bld) [Entitic vol] 10.3 fL Normal 9.0-12.7 [facility] Comment on above: Order Comment: Speci men Type: BLOOD SPECIMENOrdering Facility: [facility] Address: [address] [place] [address] Performed By: #### 5 7021-8 ####[facility]ORATORYCLIA [id number] [address] Platelets (Bld) [#/Vol] 403 10*3/uL High 150-400 [facility] Comment on above: Order Comment: Speci men Type: BLOOD SPECIMENOrdering Facility: [facility] Address: [address] [place] [address] Performed By: #### 5 7021-8 ####[facility]ORATORYCLIA [id number] [address] [place] RBC (Bld) [#/Vol] 3.40 10*6/uL Low 4.20-6.00 [facility] Comment on above: Order Comment: Speci men Type: BLOOD SPECIMENOrdering Facility: [facility] Address: [address] [place] [address] Performed By: #### 5 7021-8 ####[facility] LABORATORYCLIA [id number] [address] OF [facility] WBC (Bld) [#/Vol] 10.12 10*3/uL Normal 3.70-11.00 [facility] Comment on above: Order Comment: Speci men Type: BLOOD SPECIMENOrdering Facility: [facility] Address: [address] [place] [address] Performed By: #### 5 7021-8 ####[facility]ORATORYCLIA [id number] [address] Magnesium SerPl-mCncon 07-18 Magnesium [Mass/Vol] 2.4 mg/dL High 1.7-2.3 [facility] Comment on above: Order Comment: Speci men Type: BLOOD SPECIMENOrdering Facility: [facility] Address: [address] [place] [address] Performed By: #### 2 4321-2, 09280-8, 2777-1 ####[facility] LABORATORYCLIA [id number] [address] [place] NURSING PROGon 07-18-2021 NURSING PROG Normal [facility] NURSING PROG Normal [facility] Phosphate SerPl-mCncon 07-18 Phosphate [Mass/Vol] 3.9 mg/dL Normal 2.7-4.8 [facility] Comment on above: Order Comment: Speci men Type: BLOOD SPECIMENOrdering Facility: [facility] Address: [address] [place] [address] Performed By: #### 2 4321-2, 26195-4, 2777-1 ####[facility]ATORYCLIA [id number] [address] THERAPY NTon 07-18-2021 THERAPY NT Normal [facility] aPTT PPPon 07-18-2021 aPTT Coag (PPP) [Time] 52.3 s High 23.0-32.[address] [facility] Comment on above: Order Comment: Speci men Type: BLOOD SPECIMENOrdering Facility: [facility] Address: [address] [place] [address] Performed By: #### 1 4979-9 ####[facility] LABORATORYCLIA [id number] [address] STATES OF [facility] CBC W Auto Differential pane l (Bld)on 07-17-2021 Basophils (Bld) [#/Vol] 0.05 10*3/uL Normal <0.11 [facility] Comment on above: Order Comment: Speci men Type: BLOOD SPECIMENOrdering Facility: [facility] Address: [address] [place] [address] Performed By: #### 5 7021-8 ####[facility]ORATORYCLIA [id number] [address] Basophils/100 WBC (Bld) 0.5 % Normal [facility] Comment on above: Order Comment: Speci men Type: BLOOD SPECIMENOrdering Facility: [facility] Address: [address] [place] [address] Performed By: #### 5 7021-8 ####[facility]ORYCLIA [id number] [address] Differential cell count method Nom (Bld) Auto Normal [facility] Comment on above: Order Comment: Speci men Type: BLOOD SPECIMENOrdering Facility: [facility] Address: [address] [place] [address] Performed By: #### 5 7021-8 ####[facility]ATORYCLIA [id number] [address] [place] Eosinophils (Bld) [#/Vol] 0.32 10*3/uL Normal <0.46 [facility] Comment on above: Order Comment: Speci men Type: BLOOD SPECIMENOrdering Facility: [facility] Address: [address] [place] [address] Performed By: #### 5 7021-8 ####[facility]ORATORYCLIA [id number] [address] Eosinophils/100 WBC (Bld) 3.4 % Normal [facility] Comment on above: Order Comment: Speci men Type: BLOOD SPECIMENOrdering Facility: [facility] Address: [address] [place] [address] Performed By: #### 5 7021-8 ####[facility]ORATORYCLIA [id number] [address] [place] Erythrocyte distribution width (RBC) [Ratio] 16.6 % High 11.5-15.0 [facility] Comment on above: Order Comment: Speci men Type: BLOOD SPECIMENOrdering Facility: [facility] Address: [address] [place] [address] Performed By: #### 5 7021-8 ####[facility]ATORYCLIA [id number] [address] [place] Hematocrit (Bld) [Volume fraction] 30.7 % Low 39.0-51.0 [facility] Comment on above: Order Comment: Speci men Type: BLOOD SPECIMENOrdering Facility: [facility] Address: [address] [place] [address] Performed By: #### 5 7021-8 ####[facility]ORATORYCLIA [id number] [address] [place] Hemoglobin (Bld) [Mass/Vol] 9.0 g/dL Low 13.0-17.0 [facility] Comment on above: Order Comment: Speci men Type: BLOOD SPECIMENOrdering Facility: [facility] Address: [address] [place] [address] Performed By: #### 5 7021-8 ####[facility]ORATORYCLIA [id number] [address] IMMATURE GRAN % 0.6 % Normal [facility] Comment on above: Order Comment: Speci men Type: BLOOD SPECIMENOrdering Facility: [facility] Address: [address] [place] [address] Performed By: #### 5 7021-8 ####[facility]ORATORYCLIA [id number] [address] IMMATURE GRAN ABS 0.06 k/uL Normal <0.10 [facility] Comment on above: Order Comment: Speci men Type: BLOOD SPECIMENOrdering Facility: [facility] Address: [address] [place] [address] Performed By: #### 5 7021-8 ####[facility] LABORATORYCLIA [id number] [address] [place] Lymphocytes (Bld) [#/Vol] 1.61 10*3/uL Normal 1.00-4.00 [facility] Comment on above: Order Comment: Speci men Type: BLOOD SPECIMENOrdering Facility: [facility] Address: [address] [place] [address] Performed By: #### 5 7021-8 ####[facility]ORATORYCLIA [id number] [address] Lymphocytes/100 WBC (Bld) 17.3 % Normal [facility] Comment on above: Order Comment: Speci men Type: BLOOD SPECIMENOrdering Facility: [facility] Address: [address] [place] [address] Performed By: #### 5 7021-8 ####[facility]ORATORYCLIA [id number] [address] STATES OF [facility] MCH (RBC) [Entitic mass] 26.9 pg Normal 26.0-34.0 [facility] Comment on above: Order Comment: Speci men Type: BLOOD SPECIMENOrdering Facility: [facility] Address: [address] [place] [address] Performed By: #### 5 7021-8 ####[facility]ATORYCLIA [id number] [address] [place] MCHC (RBC) [Mass/Vol] 29.3 g/dL Low 30.5-36.0 [facility] Comment on above: Order Comment: Speci men Type: BLOOD SPECIMENOrdering Facility: [facility] Address: [address] [place] [address] Performed By: #### 5 7021-8 ####[facility]ATORYCLIA [id number] [address] MCV (RBC) [Entitic vol] 91.9 fL Normal 80.0-100.0 [facility] Comment on above: Order Comment: Speci men Type: BLOOD SPECIMENOrdering Facility: [facility] Address: [address] [place] [address] Performed By: #### 5 7021-8 ####[facility]ATORYCLIA [id number] [address] Monocytes (Bld) [#/Vol] 0.61 10*3/uL Normal <0.87 [facility] Comment on above: Order Comment: Speci men Type: BLOOD SPECIMENOrdering Facility: [facility] Address: [address] [place] [address] Performed By: #### 5 7021-8 ####[facility]ATORYCLIA [id number] [address] [place] Monocytes/100 WBC (Bld) 6.6 % Normal [facility] Comment on above: Order Comment: Speci men Type: BLOOD SPECIMENOrdering Facility: [facility] Address: [address] [place] [address] Performed By: #### 5 7021-8 ####[facility] LABORATORYCLIA [id number] [place] [address] [place] Neutrophils (Bld) [#/Vol] 6.64 10*3/uL Normal 1.45-7.50 [facility] Comment on above: Order Comment: Speci men Type: BLOOD SPECIMENOrdering Facility: [facility] Address: [address] [place] [address] Performed By: #### 5 7021-8 ####[facility] LABORATORYCLIA [id number] [address] Neutrophils/100 WBC (Bld) 71.6 % Normal [facility] Comment on above: Order Comment: Speci men Type: BLOOD SPECIMENOrdering Facility: [facility] Address: [address] [place] [address] Performed By: #### 5 7021-8 ####[facility]ORATORYCLIA [id number] [address] [place] Nucleated RBC (Bld) [#/Vol] 10*3/uL Normal <0.01 [facility] Comment on above: Order Comment: Speci men Type: BLOOD SPECIMENOrdering Facility: [facility] Address: [address] [place] [address] Performed By: #### 5 7021-8 ####[facility]ORATORYCLIA [id number] [address] [place] Nucleated RBC/100 WBC (Bld) [Ratio] 0.0 /100 WBC Normal [facility] Comment on above: Order Comment: Speci men Type: BLOOD SPECIMENOrdering Facility: [facility] Address: [address] Performed By: #### 5 7021-8 ####[facility] LABORATORYCLIA [id number] [address] STATES [facility] Platelet mean volume (Bld) [Entitic vol] 10.1 fL Normal 9.0-12.7 [facility] Comment on above: Order Comment: Speci men Type: BLOOD SPECIMENOrdering Facility: [facility] Address: [address] [place] [address] Performed By: #### 5 7021-8 ####[facility] LABORATORYCLIA [id number] [address] [place] Platelets (Bld) [#/Vol] 387 10*3/uL Normal 150-400 [facility] Comment on above: Order Comment: Speci men Type: BLOOD SPECIMENOrdering Facility: [facility] Address: [address] [place] [address] Performed By: #### 5 7021-8 ####[facility] LABORATORYCLIA [id number] [address] [place] RBC (Bld) [#/Vol] 3.34 10*6/uL Low 4.20-6.00 [facility] Comment on above: Order Comment: Speci men Type: BLOOD SPECIMENOrdering Facility: [facility] Address: [address] [place], [place] [address] Performed By: #### 5 7021-8 ####[facility] LABORATORYCLIA [id number] [address] [place] WBC (Bld) [#/Vol] 9.29 10*3/uL Normal 3.70-11.00 [facility] Comment on above: Order Comment: Speci men Type: BLOOD SPECIMENOrdering Facility: [facility] Address: [address] [place] [address] Performed By: #### 5 7021-8 ####[facility] LABORATORYCLIA [id number] [address] [place] CONSULT PROGon 07-17-2021 CONSULT PROG Normal [facility] Magnesium SerPl-mCncon 07-17 Magnesium [Mass/Vol] 2.3 mg/dL Normal 1.7-2.3 [facility] Comment on above: Order Comment: Speci men Type: BLOOD SPECIMENOrdering Facility: [facility] Address: [address] [place] [address] Performed By: #### 2 777-1, 76383-8 ####[facility] LABORATORYCLIA [id number] [address] NURSING PROGon 07-17-2021 NURSING PROG Normal [facility] NURSING PROG Normal [facility] NURSING PROG Normal [facility] Phosphate SerPl-mCncon 07-17 Phosphate [Mass/Vol] 3.6 mg/dL Normal 2.7-4.8 [facility] Comment on above: Order Comment: Speci men Type: BLOOD SPECIMENOrdering Facility: [facility] Address: [address] [place] [address] Performed By: #### 2 777-1, 36417-7 ####[facility] LABORATORYCLIA [id number] [address] aPTT PPPon 07-17-2021 aPTT Coag (PPP) [Time] 57.2 s High 23.0-32.[address] [facility] Comment on above: Order Comment: Speci men Type: BLOOD SPECIMENOrdering Facility: [facility] Address: [address] [place] [address] Performed By: #### 1 4979-9 ####[facility] LABORATORYCLIA [id number] [address] [place] Basic metabolic 2000 panelon 07-16-2021 Anion gap [Moles/Vol] 5 mmol/L Low 9-18 [facility] Comment on above: Order Comment: Speci men Type: BLOOD SPECIMENOrdering Facility: [facility] Address: [address] [place], [place] [address] Performed By: #### 2 777-1, 41619-9, ####[facility] LABORATORYCLIA [id number] [place] [address] [place] Calcium [Mass/Vol] 9.1 mg/dL Normal 8.5-10.2 [facility] Comment on above: Order Comment: Speci men Type: BLOOD SPECIMENOrdering Facility: [facility] Address: [address] [place] [address] Performed By: #### 2 777-1, 25334-8, ####[facility] LABORATORYCLIA [id number] [place] [address] [place] Chloride [Moles/Vol] 101 mmol/L Normal 97-105 [facility] Comment on above: Order Comment: Speci men Type: BLOOD SPECIMENOrdering Facility: [facility] Address: [address] [place] [address] Performed By: #### 2 777-1, , ####[facility] LABORATORYCLIA [id number] [place] [address] [place] CO2 [Moles/Vol] 35 mmol/L High 22-30 [facility] Comment on above: Order Comment: Speci men Type: BLOOD SPECIMENOrdering Facility: [facility] Address: [address] [place] [address] Performed By: #### 2 777-1, , ####[facility] LABORATORYCLIA [id number] [place] [address] [place] Creatinine [Mass/Vol] 0.73 mg/dL Normal 0.73-1.22 [facility] Comment on above: Order Comment: Speci men Type: BLOOD SPECIMENOrdering Facility: [facility] Address: [address] [place] [address] Performed By: #### 2 777-1, 34820-3, ####[facility]ORATORYCLIA [id number] [place] [address] [place] ESTIMATED GLOMERULAR FILTRATION RATE 98 mL/min/1.73m??? Normal >=60 [facility] Comment on above: Order Comment: Shira feldman Type: BLOOD SPECIMENOrdering Facility: [facility] Address: [address] [place], [place] [address] Result Comment: Luzmaria mated Glomerular Filtration Rate [...] actual GFR. Performed By: #### 2 777-1, 02854-5, ####[facility] LABORATORYCLIA [id number] [place] [id number] [place] Glucose [Mass/Vol] 133 mg/dL High 74-99 [facility] Comment on above: Order Comment: Shira feldman Type: BLOOD SPECIMENOrdering Facility: [facility] Address: [address] [place] [address] Result Comment: The [place] Diabetes Association (ADA) provides guidance for cutoff [...] Standards of Medical Care in Diabetes 2016, [place] Diabetes [employer]. Diabetes Care. 2016.39(Suppl 1). Performed By: #### 2 777-1, 32429-0, ####[facility] LABORATORYCLIA [id number] [place] [address] [place] Potassium [Moles/Vol] 4.2 mmol/L Normal 3.7-5.1 [facility] Comment on above: Order Comment: Speci men Type: BLOOD SPECIMENOrdering Facility: [facility] Address: [address] [place] [address] Performed By: #### 2 777-1, 80040-6, ####[facility] LABORATORYCLIA [id number] [place] [address] [place] Sodium [Moles/Vol] 141 mmol/L Normal 136-144 [facility] Comment on above: Order Comment: Speci men Type: BLOOD SPECIMENOrdering Facility: [facility] Address: [address] [place] [address] Performed By: #### 2 777-1, , ####[facility] LABORATORYCLIA [id number] [address] [place] Urea nitrogen [Mass/Vol] 21 mg/dL Normal 9-24 [facility] Comment on above: Order Comment: Speci men Type: BLOOD SPECIMENOrdering Facility: [facility] Address: [address] [place] [address] Performed By: #### 2 777-1, , ####[facility] LABORATORYCLIA [id number] [address] [place] CBC W Auto Differential pane l (Bld)on 07-16-2021 Basophils (Bld) [#/Vol] 0.06 10*3/uL Normal <0.11 [facility] Comment on above: Order Comment: Speci men Type: BLOOD SPECIMENOrdering Facility: [facility] Address: [address] [place] [address] Performed By: #### 5 7021-8 ####[facility] LABORATORYCLIA [id number] [address] [place] Basophils/100 WBC (Bld) 0.7 % Normal [facility] Comment on above: Order Comment: Speci men Type: BLOOD SPECIMENOrdering Facility: [facility] Address: [address] [place] [address] Performed By: #### 5 7021-8 ####[facility]ATORYCLIA [id number] [address] Differential cell count method Nom (Bld) Auto Normal [facility] Comment on above: Order Comment: Speci men Type: BLOOD SPECIMENOrdering Facility: [facility] Address: [address] [place] [address] Performed By: #### 5 7021-8 ####[facility] LABORATORYCLIA [id number] [address] [place] Eosinophils (Bld) [#/Vol] 0.35 10*3/uL Normal <0.46 [facility] Comment on above: Order Comment: Speci men Type: BLOOD SPECIMENOrdering Facility: [facility] Address: [address] [place] [address] Performed By: #### 5 7021-8 ####[facility] LABORATORYCLIA [id number] [address] Eosinophils/100 WBC (Bld) 3.9 % Normal [facility] Comment on above: Order Comment: Speci men Type: BLOOD SPECIMENOrdering Facility: [facility] Address: [address] [place] [address] Performed By: #### 5 7021-8 ####[facility] LABORATORYCLIA [id number] [address] [place] Erythrocyte distribution width (RBC) [Ratio] 16.5 % High 11.5-15.0 [facility] Comment on above: Order Comment: Speci men Type: BLOOD SPECIMENOrdering Facility: [facility] Address: [address] [place] [address] Performed By: #### 5 7021-8 ####[facility]ATORYCLIA [id number] [address] [place] Hematocrit (Bld) [Volume fraction] 30.9 % Low 39.0-51.0 [facility] Comment on above: Order Comment: Speci men Type: BLOOD SPECIMENOrdering Facility: [facility] Address: [address] [place] [address] Performed By: #### 5 7021-8 ####[facility] LABORATORYCLIA [id number] [address] [place] Hemoglobin (Bld) [Mass/Vol] 9.1 g/dL Low 13.0-17.0 [facility] Comment on above: Order Comment: Speci men Type: BLOOD SPECIMENOrdering Facility: [facility] Address: [address] [place] [address] Performed By: #### 5 7021-8 ####[facility] LABORATORYCLIA [id number] [address] IMMATURE GRAN % 0.4 % Normal [facility] Comment on above: Order Comment: Speci men Type: BLOOD SPECIMENOrdering Facility: [facility] Address: [address] [place] [address] Performed By: #### 5 7021-8 ####[facility] LABORATORYCLIA [id number] [address] IMMATURE GRAN ABS 0.04 k/uL Normal <0.10 [facility] Comment on above: Order Comment: Speci men Type: BLOOD SPECIMENOrdering Facility: [facility] Address: [address] [place] [address] Performed By: #### 5 7021-8 ####[facility] LABORATORYCLIA [id number] [address] [place] Lymphocytes (Bld) [#/Vol] 1.35 10*3/uL Normal 1.00-4.00 [facility] Comment on above: Order Comment: Speci men Type: BLOOD SPECIMENOrdering Facility: [facility] Address: [address] [place] [address] Performed By: #### 5 7021-8 ####[facility] LABORATORYCLIA [id number] [address] Lymphocytes/100 WBC (Bld) 15.0 % Normal [facility] Comment on above: Order Comment: Speci men Type: BLOOD SPECIMENOrdering Facility: [facility] Address: [address] [place] [address] Performed By: #### 5 7021-8 ####[facility] LABORATORYCLIA [id number] [address] STATES OF [facility] MCH (RBC) [Entitic mass] 27.1 pg Normal 26.0-34.0 [facility] Comment on above: Order Comment: Speci men Type: BLOOD SPECIMENOrdering Facility: [facility] Address: [address] [place] [address] Performed By: #### 5 7021-8 ####[facility] LABORATORYCLIA [id number] [address] MCHC (RBC) [Mass/Vol] 29.4 g/dL Low 30.5-36.0 [facility] Comment on above: Order Comment: Speci men Type: BLOOD SPECIMENOrdering Facility: [facility] Address: [address] [place] [address] Performed By: #### 5 7021-8 ####[facility] LABORATORYCLIA [id number] [address] MCV (RBC) [Entitic vol] 92.0 fL Normal 80.0-100.0 [facility] Comment on above: Order Comment: Speci men Type: BLOOD SPECIMENOrdering Facility: [facility] Address: [address] [place] [address] Performed By: #### 5 7021-8 ####[facility] LABORATORYCLIA [id number] [address] Monocytes (Bld) [#/Vol] 0.53 10*3/uL Normal <0.87 [facility] Comment on above: Order Comment: Speci men Type: BLOOD SPECIMENOrdering Facility: [facility] Address: [address] [place] [address] Performed By: #### 5 7021-8 ####[facility]ORATORYCLIA [id number] [address] [place] Monocytes/100 WBC (Bld) 5.9 % Normal [facility] Comment on above: Order Comment: Speci men Type: BLOOD SPECIMENOrdering Facility: [facility] Address: [address] [place] [address] Performed By: #### 5 7021-8 ####[facility]ATORYCLIA [id number] [address] [place] Neutrophils (Bld) [#/Vol] 6.67 10*3/uL Normal 1.45-7.50 [facility] Comment on above: Order Comment: Speci men Type: BLOOD SPECIMENOrdering Facility: [facility] Address: [address] [place] [address] Performed By: #### 5 7021-8 ####[facility] LABORATORYCLIA [id number] [address] Neutrophils/100 WBC (Bld) 74.1 % Normal [facility] Comment on above: Order Comment: Speci men Type: BLOOD SPECIMENOrdering Facility: [facility] Address: [address] [place] [address] Performed By: #### 5 7021-8 ####[facility] LABORATORYCLIA [id number] [address] [place] Nucleated RBC (Bld) [#/Vol] 10*3/uL Normal <0.01 [facility] Comment on above: Order Comment: Speci men Type: BLOOD SPECIMENOrdering Facility: [facility] Address: [address] [place] [address] Performed By: #### 5 7021-8 ####[facility]ATORYCLIA [id number] [address] [place] Nucleated RBC/100 WBC (Bld) [Ratio] 0.0 /100 WBC Normal [facility] Comment on above: Order Comment: Speci men Type: BLOOD SPECIMENOrdering Facility: [facility] Address: [address] [place], [place] [address] Performed By: #### 5 7021-8 ####[facility]ORATORYCLIA [id number] [address] [place] Platelet mean volume (Bld) [Entitic vol] 9.9 fL Normal 9.0-12.7 [facility] Comment on above: Order Comment: Speci men Type: BLOOD SPECIMENOrdering Facility: [facility] Address: [address] [place], [place] [address] Performed By: #### 5 7021-8 ####[facility]ORATORYCLIA [id number] [address] [place] Platelets (Bld) [#/Vol] 391 10*3/uL Normal 150-400 [facility] Comment on above: Order Comment: Speci men Type: BLOOD SPECIMENOrdering Facility: [facility] Address: [address] [place] [address] Performed By: #### 5 7021-8 ####[facility] LABORATORYCLIA [id number] [place] [address] [place] RBC (Bld) [#/Vol] 3.36 10*6/uL Low 4.20-6.00 [facility] Comment on above: Order Comment: Speci men Type: BLOOD SPECIMENOrdering Facility: [facility] Address: [address] [place], [place] [address] Performed By: #### 5 7021-8 ####[facility] LABORATORYCLIA [id number] [place] [address] [place] WBC (Bld) [#/Vol] 9.00 10*3/uL Normal 3.70-11.00 [facility] Comment on above: Order Comment: Speci men Type: BLOOD SPECIMENOrdering Facility: [facility] Address: [address] [place] [address] Performed By: #### 5 7021-8 ####[facility] LABORATORYCLIA [id number] [address] CONSULT PROGon 07-16-2021 CONSULT PROG Normal [facility] CONSULT PROG Normal [facility] Magnesium SerPl-mCncon 07-16 Magnesium [Mass/Vol] 2.3 mg/dL Normal 1.7-2.3 [facility] Comment on above: Order Comment: Speci men Type: BLOOD SPECIMENOrdering Facility: [facility] Address: [address] [place] [address] Performed By: #### 2 777-1, 52212-3, ####[facility]ORATORYCLIA [id number] [address] NURSING PROGon 07-16-2021 NURSING PROG Normal [facility] Phosphate SerPl-mCncon 07-16 Phosphate [Mass/Vol] 3.6 mg/dL Normal 2.7-4.8 [facility] Comment on above: Order Comment: Speci men Type: BLOOD SPECIMENOrdering Facility: [facility] Address: [address] [place] [address] Performed By: #### 2 777-1, 10760-3, ####[facility] LABORATORYCLIA [id number] [address] Vancomycin random [Mass/Vol] on 07-16-2021 Vancomycin [Mass/Vol] 16.9 ug/mL Normal 10.0-20.0 [facility] Comment on above: Order Comment: Speci men Type: BLOOD SPECIMENOrdering Facility: [facility] Address: [address] [place] [address] Result Comment: Refe rence ranges and high/low indicator flags are provided as general guidelines only. The treating physician must determine appropriate target levels/dosing based on the specific clinical situation. Performed By: #### 4 091-5 ####[facility] LABORATORYCLIA [id number] [address] [place] aPTT PPPon 07-16-2021 aPTT Coag (PPP) [Time] 57.2 s High 23.0-32.[address] [facility] Comment on above: Order Comment: Speci men Type: BLOOD SPECIMENOrdering Facility: [facility] Address: [address] [place] [address] Performed By: #### 1 4979-9 ####[facility] LABORATORYCLIA [id number] [place] [id number] [place] ALLIED HEALTHon 07-15-2021 ALLIED HEALTH Normal [facility] Basic metabolic 2000 panelon 07-15-2021 Anion gap [Moles/Vol] 11 mmol/L Normal 9-18 [facility] Comment on above: Order Comment: Speci men Type: BLOOD SPECIMENOrdering Facility: [facility] Address: [address] [place] [address] Performed By: #### 2 4321-2, , 2776-05 ####[facility] LABORATORYCLIA [id number] [place] [address] [place] Calcium [Mass/Vol] 8.8 mg/dL Normal 8.5-10.2 [facility] Comment on above: Order Comment: Speci men Type: BLOOD SPECIMENOrdering Facility: [facility] Address: [address] [place] [address] Performed By: #### 2 4321-2, , 2776-05 ####[facility] LABORATORYCLIA [id number] [place] [address] [place] Chloride [Moles/Vol] 101 mmol/L Normal 97-105 [facility] Comment on above: Order Comment: Speci men Type: BLOOD SPECIMENOrdering Facility: [facility] Address: [address] [place] [address] Performed By: #### 2 4321-2, , 2776-05 ####[facility] LABORATORYCLIA [id number] [place] [address] [place] CO2 [Moles/Vol] 31 mmol/L High 22-30 [facility] Comment on above: Order Comment: Speci men Type: BLOOD SPECIMENOrdering Facility: [facility] Address: [address] [place] [address] Performed By: #### 2 4321-2, , 2776-05 ####[facility]PITALCLIA [id number] [place] [address] [place] Creatinine [Mass/Vol] 0.76 mg/dL Normal 0.73-1.22 [facility] Comment on above: Order Comment: Speci men Type: BLOOD SPECIMENOrdering Facility: [facility] Address: [address] [place] [address] Performed By: #### 2 4321-2, , 2776-05 ####[facility] [id number] [address] [place] ESTIMATED GLOMERULAR FILTRATION RATE 97 mL/min/1.73m??? Normal >=60 [facility] Comment on above: Order Comment: Speccara men Type: BLOOD SPECIMENOrdering Facility: [facility] Address: [address] [place] [address] Result Comment: Luzmaria mated Glomerular Filtration Rate [...] 2776-05 ####[facility] LABORATORYIA [id number] [place] [address] [place] Glucose [Mass/Vol] 115 mg/dL High 74-99 [facility] Comment on above: Order Comment: Johni francia Type: BLOOD SPECIMENOrdering Facility: [facility] Address: [address] [place] [address] Result Comment: The [place] Diabetes Association (ADA) provides guidance for cutoff [...] Standards of Medical Care in Diabetes 2016, [place] [employer]. Diabetes Care. 2016.39(Suppl 1). Performed By: #### 2 4321-2, , 2776-05 ####[facility]ORATORYCLIA [id number] [place] [address] [place] Potassium [Moles/Vol] 4.0 mmol/L Normal 3.7-5.1 [facility] Comment on above: Order Comment: Shira feldman Type: BLOOD SPECIMENOrdering Facility: [facility] Address: [address] [place] [address] Performed By: #### 2 4320-2, , 2776-05 ####[facility]PITALCLIA [id number] [place] [address] [place] Sodium [Moles/Vol] 143 mmol/L Normal 136-144 [facility] Comment on above: Order Comment: Shira feldman Type: BLOOD SPECIMENOrdering Facility: [facility] Address: [address] [place] [address] Performed By: #### 2 4321-2, , 2776-05 ####[facility] LABORATORYCLIA [id number] [place] [address] [place] Urea nitrogen [Mass/Vol] 17 mg/dL Normal 9-24 [facility] Comment on above: Order Comment: Shira feldman Type: BLOOD SPECIMENOrdering Facility: [facility] Address: [address] [place] [address] Performed By: #### 2 4321-2, , 2776-05 ####[facility] LABORATORYCLIA [id number] [address] [place] CASE MANAGEMon 07-15-2021 CASE MANAGEM Normal [facility] CBC panel Auto (Bld)on 07-15 Erythrocyte distribution width (RBC) [Ratio] 16.4 % High 11.5-15.0 [facility] Comment on above: Order Comment: Speci men Type: BLOOD SPECIMENOrdering Facility: [facility] Address: [address] [place] [address] Performed By: #### 5 8410-2 ####[facility] LABORATORYCLIA [id number] [address] Hematocrit (Bld) [Volume fraction] 30.3 % Low 39.0-51.0 [facility] Comment on above: Order Comment: Speci men Type: BLOOD SPECIMENOrdering Facility: [facility] Address: [address] [place] [address] Performed By: #### 5 8410-2 ####[facility] LABORATORYCLIA [id number] [address] Hemoglobin (Bld) [Mass/Vol] 9.2 g/dL Low 13.0-17.0 [facility] Comment on above: Order Comment: Speci men Type: BLOOD SPECIMENOrdering Facility: [facility] Address: [address] [place] [address] Performed By: #### 5 8410-2 ####[facility] LABORATORYCLIA [id number] [address] [place] MCH (RBC) [Entitic mass] 28.3 pg Normal 26.0-34.0 [facility] Comment on above: Order Comment: Speci men Type: BLOOD SPECIMENOrdering Facility: [facility] Address: [address] [place] [address] Performed By: #### 5 8410-2 ####[facility] LABORATORYCLIA [id number] [address] [place] MCHC (RBC) [Mass/Vol] 30.4 g/dL Low 30.5-36.0 [facility] Comment on above: Order Comment: Speci men Type: BLOOD SPECIMENOrdering Facility: [facility] Address: [address] [place], [place] [address] Performed By: #### 5 8410-2 ####[facility] LABORATORYCLIA [id number] [address] [place] MCV (RBC) [Entitic vol] 93.2 fL Normal 80.0-100.0 [facility] Comment on above: Order Comment: Speci men Type: BLOOD SPECIMENOrdering Facility: [facility] Address: [address] [place], [place] [address] Performed By: #### 5 8410-2 ####[facility] LABORATORYCLIA [id number] [address] [place] Nucleated RBC (Bld) [#/Vol] 10*3/uL Normal <0.01 [facility] Comment on above: Order Comment: Speci men Type: BLOOD SPECIMENOrdering Facility: [facility] Address: [address] [place] [address] Performed By: #### 5 8410-2 ####[facility]ORATORYCLIA [id number] [address] [place] Platelet mean volume (Bld) [Entitic vol] 9.9 fL Normal 9.0-12.7 [facility] Comment on above: Order Comment: Speci men Type: BLOOD SPECIMENOrdering Facility: [facility] Address: [address] [place], [place] [address] Performed By: #### 5 8410-2 ####[facility]ORATORYCLIA [id number] [address] [place] Platelets (Bld) [#/Vol] 381 10*3/uL Normal 150-400 [facility] Comment on above: Order Comment: Speci men Type: BLOOD SPECIMENOrdering Facility: [facility] Address: [address] [place], [place] [address] Performed By: #### 5 8410-2 ####[facility]ORATORYCLIA [id number] [place] [address] [place] RBC (Bld) [#/Vol] 3.25 10*6/uL Low 4.20-6.00 [facility] Comment on above: Order Comment: Speci men Type: BLOOD SPECIMENOrdering Facility: [facility] Address: [address] [place] [address] Performed By: #### 5 8410-2 ####[facility] LABORATORYCLIA [id number] [address] [place] WBC (Bld) [#/Vol] 8.80 10*3/uL Normal 3.70-11.00 [facility] Comment on above: Order Comment: Speci men Type: BLOOD SPECIMENOrdering Facility: [facility] Address: [address] [place] [address] Performed By: #### 5 8410-2 ####[facility] LABORATORYCLIA [id number] [address] [place] Magnesium SerPl-mCncon 07-15 Magnesium [Mass/Vol] 2.2 mg/dL Normal 1.7-2.3 [facility] Comment on above: Order Comment: Speci men Type: BLOOD SPECIMENOrdering Facility: [facility] Address: [address] [place] [address] Performed By: #### 2 4321-2, 80524-9, 2777-1 ####[facility]ORATORYCLIA [id number] [place] [address] [place] NURSING PROGon 07-15-2021 NURSING PROG Normal [facility] NURSING PROG Normal [facility] NURSING PROG Normal [facility] NUTRITIONon 07-15-2021 NUTRITION Normal [facility] Phosphate SerPl-mCncon 07-15 Phosphate [Mass/Vol] 3.4 mg/dL Normal 2.7-4.8 [facility] Comment on above: Order Comment: Speci men Type: BLOOD SPECIMENOrdering Facility: [facility] Address: [address] [place] [address] Performed By: #### 2 4321-2, 55009-0, 2777-1 ####[facility] LABORATORYCLIA [id number] [place] [address] [facility] THERAPY NTon 07-15-2021 THERAPY NT Normal [facility] US DVT UPPER LTon 07-15-2021 US DVT UPPER LT Normal [facility] XR CHEST 1V FRONTALon 2021 XR CHEST 1V FRONTAL Normal [facility] aPTT PPPon 07-15-2021 aPTT Coag (PPP) [Time] 59.9 s High 23.0-32.[address] [facility] Comment on above: Order Comment: Speci men Type: BLOOD SPECIMENOrdering Facility: [facility] Address: [address] [place] [address] Performed By: #### 1 4979-9 ####[facility] LABORATORYCLIA [id number] [place] [address] [place] Basic metabolic 2000 panelon 07-14-2021 Anion gap [Moles/Vol] 9 mmol/L Normal 9-18 [facility] Comment on above: Order Comment: Speci men Type: BLOOD SPECIMENOrdering Facility: [facility] Address: [address] [place] [address] Performed By: #### 1 9123-9, 2777-1, 30004-8 ####[facility] LABORATORYCLIA [id number] [place] [address] [place] Calcium [Mass/Vol] 8.5 mg/dL Normal 8.5-10.2 [facility] Comment on above: Order Comment: Speci men Type: BLOOD SPECIMENOrdering Facility: [facility] Address: [address] [place] [address] Performed By: #### 1 9123-9, 2777-1, 93866-3 ####[facility]ORATORYCLIA [id number] [place] [address] [place] Chloride [Moles/Vol] 99 mmol/L Normal 97-105 [facility] Comment on above: Order Comment: Speci men Type: BLOOD SPECIMENOrdering Facility: [facility] Address: [address] [place] [address] Performed By: #### 1 9123-9, 2777, ####[facility]ORATORYCLIA [id number] [address] CO2 [Moles/Vol] 31 mmol/L High 22-30 [facility] Comment on above: Order Comment: Speci men Type: BLOOD SPECIMENOrdering Facility: [facility] Address: [address] [place] [address] Performed By: #### 1 9123-9, 27711-04, ####[facility]ORATORYCLIA [id number] [address] Creatinine [Mass/Vol] 0.74 mg/dL Normal 0.73-1.22 [facility] Comment on above: Order Comment: Speci men Type: BLOOD SPECIMENOrdering Facility: [facility] Address: [address] [place] [address] Performed By: #### 1 9123-9, 2776-05, ####[facility]ITALCLIA [id number] [address] ESTIMATED GLOMERULAR FILTRATION RATE 98 mL/min/1.73m??? Normal >=60 [facility] Comment on above: Order Comment: Speci men Type: BLOOD SPECIMENOrdering Facility: [facility] Address: [address] [place] [address] Result Comment: Luzmaria mated Glomerular Filtration Rate [...] GFR. Performed By: #### 1 9123-9, 27711-04, 08983-3 ####[facility]ORATORYCLIA [id number] [place] [address] [place] Glucose [Mass/Vol] 117 mg/dL High 74-99 [facility] Comment on above: Order Comment: Speci men Type: BLOOD SPECIMENOrdering Facility: [facility] Address: [address] [place] [address] Result Comment: The [place] Diabetes Association (ADA) provides guidance for cutoff [...] Standards of Medical Care in Diabetes 2016, [place] [employer]. Diabetes Care. 2016.39(Suppl 1). Performed By: #### 1 9123-9, 2777, 50159-0 ####[facility]ORATORYCLIA [id number] [place] [address] [place] Potassium [Moles/Vol] 3.7 mmol/L Normal 3.7-5.1 [facility] Comment on above: Order Comment: Speci men Type: BLOOD SPECIMENOrdering Facility: [facility] Address: [address] [place], [place] [address] Performed By: #### 1 9123-9, 27711-04, 81573-6 ####[facility]ORATORYCLIA [id number] [place] [address] [place] Sodium [Moles/Vol] 139 mmol/L Normal 136-144 [facility] Comment on above: Order Comment: Speci men Type: BLOOD SPECIMENOrdering Facility: [facility] Address: [address] [place] [address] Performed By: #### 1 9123-9, 27711-04, 46337-7 ####[facility]ORATORYCLIA [id number] [address] [place] Urea nitrogen [Mass/Vol] 16 mg/dL Normal 9-24 [facility] Comment on above: Order Comment: Speci men Type: BLOOD SPECIMENOrdering Facility: [facility] Address: [address] [place] [address] Performed By: #### 1 9123-9, 2777-1, 40842-6 ####[facility]ORATORYCLIA [id number] [address] CBC panel Auto (Bld)on 07-14 Erythrocyte distribution width (RBC) [Ratio] 16.2 % High 11.5-15.0 [facility] Comment on above: Order Comment: Speci men Type: BLOOD SPECIMENOrdering Facility: [facility] Address: [address] [place] [address] Performed By: #### 5 8410-2 ####[facility] LABORATORYCLIA [id number] [address] STATES OF [facility] Hematocrit (Bld) [Volume fraction] 29.7 % Low 39.0-51.0 [facility] Comment on above: Order Comment: Speci men Type: BLOOD SPECIMENOrdering Facility: [facility] Address: [address] [place] [address] Performed By: #### 5 8410-2 ####[facility]ORATORYCLIA [id number] [address] [place] Hemoglobin (Bld) [Mass/Vol] 8.8 g/dL Low 13.0-17.0 [facility] Comment on above: Order Comment: Speci men Type: BLOOD SPECIMENOrdering Facility: [facility] Address: [address] [place] [address] Performed By: #### 5 8410-2 ####[facility] LABORATORYCLIA [id number] [address] [place] MCH (RBC) [Entitic mass] 27.5 pg Normal 26.0-34.0 [facility] Comment on above: Order Comment: Speci men Type: BLOOD SPECIMENOrdering Facility: [facility] Address: [address] [place] [address] Performed By: #### 5 8410-2 ####[facility] LABORATORYCLIA [id number] [address] MCHC (RBC) [Mass/Vol] 29.6 g/dL Low 30.5-36.0 [facility] Comment on above: Order Comment: Speci men Type: BLOOD SPECIMENOrdering Facility: [facility] Address: [address] [place] [address] Performed By: #### 5 8410-2 ####[facility] LABORATORYCLIA [id number] [address] [place] MCV (RBC) [Entitic vol] 92.8 fL Normal 80.0-100.0 [facility] Comment on above: Order Comment: Speci men Type: BLOOD SPECIMENOrdering Facility: [facility] Address: [address] [place] [address] Performed By: #### 5 8410-2 ####[facility]ORATORYCLIA [id number] [address] Nucleated RBC (Bld) [#/Vol] 10*3/uL Normal <0.01 [facility] Comment on above: Order Comment: Speci men Type: BLOOD SPECIMENOrdering Facility: [facility] Address: [address] [place] [address] Performed By: #### 5 8410-2 ####[facility]ORATORYCLIA [id number] [address] Platelet mean volume (Bld) [Entitic vol] 9.6 fL Normal 9.0-12.7 [facility] Comment on above: Order Comment: Speci men Type: BLOOD SPECIMENOrdering Facility: [facility] Address: [address] [place] [address] Performed By: #### 5 8410-2 ####[facility]ORATORYCLIA [id number] [place] [address] [place] Platelets (Bld) [#/Vol] 354 10*3/uL Normal 150-400 [facility] Comment on above: Order Comment: Speci men Type: BLOOD SPECIMENOrdering Facility: [facility] Address: [address] [place] [address] Performed By: #### 5 8410-2 ####[facility] LABORATORYCLIA [id number] [place] [address] [place] RBC (Bld) [#/Vol] 3.20 10*6/uL Low 4.20-6.00 [facility] Comment on above: Order Comment: Speci men Type: BLOOD SPECIMENOrdering Facility: [facility] Address: [address] [place] [address] Performed By: #### 5 8410-2 ####[facility] LABORATORYCLIA [id number] [address] STATES OF [facility] WBC (Bld) [#/Vol] 9.41 10*3/uL Normal 3.70-11.00 [facility] Comment on above: Order Comment: Speci men Type: BLOOD SPECIMENOrdering Facility: [facility] Address: [address] [place] [address] Performed By: #### 5 8410-2 ####[facility]ORATORYCLIA [id number] [address] [place] CONSULT PROGon 07-14-2021 CONSULT PROG Normal [facility] Magnesium SerPl-mCncon 07-14 Magnesium [Mass/Vol] 2.2 mg/dL Normal 1.7-2.3 [facility] Comment on above: Order Comment: Speci men Type: BLOOD SPECIMENOrdering Facility: [facility] Address: [address] [place] [address] Performed By: #### 1 9123-9, 2777-1, 17173-0 ####[facility]ORATORYCLIA [id number] [address] [place] NURSING PROGon 07-14-2021 NURSING PROG Normal [facility] Phosphate SerPl-mCncon 07-14 Phosphate [Mass/Vol] 3.6 mg/dL Normal 2.7-4.8 [facility] Comment on above: Order Comment: Speci men Type: BLOOD SPECIMENOrdering Facility: [facility] Address: [address] [place] [address] Performed By: #### 1 9123-9, 2777-1, 42043-9 ####[facility]ORATORYCLIA [id number] [address] [place] aPTT PPPon 07-14-2021 aPTT Coag (PPP) [Time] 62.9 s High 23.0-32.[address] [facility] Comment on above: Order Comment: Speci men Type: BLOOD SPECIMENOrdering Facility: [facility] Address: [address] [place] [address] Performed By: #### 1 4979-9 ####[facility]ORATORYCLIA [id number] [address] [place] aPTT Coag (PPP) [Time] 55.2 s High 23.0-32.[address] [facility] Comment on above: Order Comment: Speci men Type: BLOOD SPECIMENOrdering Facility: [facility] Address: [address] [place] [address] Performed By: #### 1 4979-9 ####[facility] LABORATORYCLIA [id number] [place] [address] [place] Basic metabolic 2000 panelon 07-13-2021 Anion gap [Moles/Vol] 10 mmol/L Normal 9-18 [facility] Comment on above: Order Comment: Speci men Type: BLOOD SPECIMENOrdering Facility: [facility] Address: [address] [place] [address] Performed By: #### 1 9123-9, 2777-1, 17542-0 ####[facility]ORATORYCLIA [id number] [address] STATES [place] [facility] Calcium [Mass/Vol] 8.5 mg/dL Normal 8.5-10.2 [facility] Comment on above: Order Comment: Speci men Type: BLOOD SPECIMENOrdering Facility: [facility] Address: [address] [place] [address] Performed By: #### 1 9123-9, 2777-1, 27363-4 ####[facility]ORATORYCLIA [id number] [place] [address] [place] Chloride [Moles/Vol] 98 mmol/L Normal 97-105 [facility] Comment on above: Order Comment: Speci men Type: BLOOD SPECIMENOrdering Facility: [facility] Address: [address] [place] [address] Performed By: #### 1 9123-9, 27711-04, 18546-1 ####[facility]ORATORYCLIA [id number] [address] STATES OF [facility] CO2 [Moles/Vol] 32 mmol/L High 22-30 [facility] Comment on above: Order Comment: Speci men Type: BLOOD SPECIMENOrdering Facility: [facility] Address: [address] [place] [address] Performed By: #### 1 9123-9, 27711-04, 27024-7 ####[facility]ORATORYCLIA [id number] [address] [place] Creatinine [Mass/Vol] 0.75 mg/dL Normal 0.73-1.22 [facility] Comment on above: Order Comment: Speci men Type: BLOOD SPECIMENOrdering Facility: [facility] Address: [address] [place] [address] Performed By: #### 1 9123-9, 2777, 61231-0 ####[facility]ORATORYCLIA [id number] [address] [place] ESTIMATED GLOMERULAR FILTRATION RATE 98 mL/min/1.73m??? Normal >=60 [facility] Comment on above: Order Comment: Speci men Type: BLOOD SPECIMENOrdering Facility: [facility] Address: [address] [place] [id number] Result Comment: Luzmaria mated Glomerular Filtration Rate [...] GFR. Performed By: #### 1 9123-9, 2777-1, 94428-6 ####[facility]ORATORYCLIA [id number] [place] [address] [place] Glucose [Mass/Vol] 118 mg/dL High 74-99 [facility] Comment on above: Order Comment: Shira feldman Type: BLOOD SPECIMENOrdering Facility: [facility] Address: [address] [place] [address] Result Comment: The [place] Diabetes Association (ADA) provides guidance for cutoff [...] Standards of Medical Care in Diabetes 2016, [place] Diabetes [employer]. Diabetes Care. 2016.39(Suppl 1). Performed By: #### 1 9123-9, 2777-1, 50705-9 ####[facility]ORATORYCLIA [id number] [place] [address] [place] Potassium [Moles/Vol] 3.6 mmol/L Low 3.7-5.1 [facility] Comment on above: Order Comment: Shira feldman Type: BLOOD SPECIMENOrdering Facility: [facility] Address: [address] [id number] Performed By: #### 1 9123-9, 2777-1, 68502-5 ####[facility] LABORATORYCLIA [id number] [address] Sodium [Moles/Vol] 140 mmol/L Normal 136-144 [facility] Comment on above: Order Comment: Speci men Type: BLOOD SPECIMENOrdering Facility: [facility] Address: [address] [place] [address] Performed By: #### 1 9123-9, 2777-, 23758-4 ####[facility] LABORATORYCLIA [id number] [address] STATES [facility] Urea nitrogen [Mass/Vol] 15 mg/dL Normal 9-24 [facility] Comment on above: Order Comment: Speci men Type: BLOOD SPECIMENOrdering Facility: [facility] Address: [address] [place] [address] Performed By: #### 1 9123-9, 2777, 78930-9 ####[facility]ATORYCLIA [id number] [address] CASE MANAGEMon 07-13-2021 CASE MANAGEM Normal [facility] CBC panel Auto (Bld)on 07-13 Erythrocyte distribution width (RBC) [Ratio] 16.2 % High 11.5-15.0 [facility] Comment on above: Order Comment: Speci men Type: BLOOD SPECIMENOrdering Facility: [facility] Address: [address] [place] [address] Performed By: #### 5 8410-2 ####[facility] LABORATORYCLIA [id number] [address] Hematocrit (Bld) [Volume fraction] 29.5 % Low 39.0-51.0 [facility] Comment on above: Order Comment: Speci men Type: BLOOD SPECIMENOrdering Facility: [facility] Address: [address] [place] [address] Performed By: #### 5 8410-2 ####[facility] LABORATORYCLIA [id number] [address] STATES OF [facility] Hemoglobin (Bld) [Mass/Vol] 8.9 g/dL Low 13.0-17.0 [facility] Comment on above: Order Comment: Speci men Type: BLOOD SPECIMENOrdering Facility: [facility] Address: [address] [place] [address] Performed By: #### 5 8410-2 ####[facility]ORATORYCLIA [id number] [address] MCH (RBC) [Entitic mass] 27.8 pg Normal 26.0-34.0 [facility] Comment on above: Order Comment: Speci men Type: BLOOD SPECIMENOrdering Facility: [facility] Address: [address] [place] [address] Performed By: #### 5 8410-2 ####[facility]ATORYCLIA [id number] [address] MCHC (RBC) [Mass/Vol] 30.2 g/dL Low 30.5-36.0 [facility] Comment on above: Order Comment: Speci men Type: BLOOD SPECIMENOrdering Facility: [facility] Address: [address] [place] [address] Performed By: #### 5 8410-2 ####[facility]ORATORYCLIA [id number] [address] MCV (RBC) [Entitic vol] 92.2 fL Normal 80.0-100.0 [facility] Comment on above: Order Comment: Speci men Type: BLOOD SPECIMENOrdering Facility: [facility] Address: [address] [place] [address] Performed By: #### 5 8410-2 ####[facility]ATORYCLIA [id number] [address] Nucleated RBC (Bld) [#/Vol] 10*3/uL Normal <0.01 [facility] Comment on above: Order Comment: Speci men Type: BLOOD SPECIMENOrdering Facility: [facility] Address: [address] [place] [address] Performed By: #### 5 8410-2 ####[facility]ORATORYCLIA [id number] [address] [place] Platelet mean volume (Bld) [Entitic vol] 9.8 fL Normal 9.0-12.7 [facility] Comment on above: Order Comment: Speci men Type: BLOOD SPECIMENOrdering Facility: [facility] Address: [address] [place] [address] Performed By: #### 5 8410-2 ####[facility]ATORYCLIA [id number] [address] [place] Platelets (Bld) [#/Vol] 356 10*3/uL Normal 150-400 [facility] Comment on above: Order Comment: Speci men Type: BLOOD SPECIMENOrdering Facility: [facility] Address: [address] [place] [address] Performed By: #### 5 8410-2 ####[facility]ATORYCLIA [id number] [place] [address] [place] RBC (Bld) [#/Vol] 3.20 10*6/uL Low 4.20-6.00 [facility] Comment on above: Order Comment: Speci men Type: BLOOD SPECIMENOrdering Facility: [facility] Address: [address] [place], [place] [address] Performed By: #### 5 8410-2 ####[facility]ORATORYCLIA [id number] [address] [place] WBC (Bld) [#/Vol] 9.20 10*3/uL Normal 3.70-11.00 [facility] Comment on above: Order Comment: Speci men Type: BLOOD SPECIMENOrdering Facility: [facility] Address: [address] [place] [address] Performed By: #### 5 8410-2 ####[facility] LABORATORYCLIA [id number] [address] [place] CONSULT PROGon 07-13-2021 CONSULT PROG Normal [facility] CONSULT PROG Normal [facility] CONSULT PROG Normal [facility] Magnesium SerPl-mCncon 07-13 Magnesium [Mass/Vol] 2.1 mg/dL Normal 1.7-2.3 [facility] Comment on above: Order Comment: Speci men Type: BLOOD SPECIMENOrdering Facility: [facility] Address: [address] [place] [address] Performed By: #### 1 9123-9, 2777-1, 74479-8 ####[facility] LABORATORYCLIA [id number] [address] Phosphate SerPl-mCncon 07-13 Phosphate [Mass/Vol] 3.7 mg/dL Normal 2.7-4.8 [facility] Comment on above: Order Comment: Speci men Type: BLOOD SPECIMENOrdering Facility: [facility] Address: [address] [place] [address] Performed By: #### 1 9123-9, 2777-1, 40612-8 ####[facility]ITALCL[facility] [id number] [address] THERAPY NTon 07-13-2021 THERAPY NT Normal [facility] THERAPY NT Normal [facility] Vancomycin random [Mass/Vol] on 07-13-2021 Vancomycin [Mass/Vol] 31.7 ug/mL High 10.0-20.0 [facility] Comment on above: Order Comment: Speci men Type: BLOOD SPECIMENOrdering Facility: [facility] Address: [address] [place] [address] Result Comment: Refe rence ranges and high/low indicator flags are provided as general guidelines only. The treating physician must determine appropriate target levels/dosing based on the specific clinical situation. Performed By: #### 4 091-5 ####[facility]ATORYCLIA [id number] [address] [place] aPTT PPPon 07-13-2021 aPTT Coag (PPP) [Time] 47.3 s High 23.0-32.[address] [facility] Comment on above: Order Comment: Speci men Type: BLOOD SPECIMENOrdering Facility: [facility] Address: [address] [place] [address] Performed By: #### 1 4979-9 ####[facility] LABORATORYCLIA [id number] [address] aPTT Coag (PPP) [Time] 51.2 s High 23.0-32.[address] [facility] Comment on above: Order Comment: Speci men Type: BLOOD SPECIMENOrdering Facility: [facility] Address: [address] [place] [address] Performed By: #### 1 4979-9 ####[facility]ORATORYCLIA [id number] [address] aPTT Coag (PPP) [Time] 47.5 s High 23.0-32.[address] [facility] Comment on above: Order Comment: Speci men Type: BLOOD SPECIMENOrdering Facility: [facility] Address: [address] [place] [address] Performed By: #### 1 4979-9 ####[facility] LABORATORYCLIA [id number] [address] STATES OF [facility] Basic metabolic 2000 panelon 07-12-2021 Anion gap [Moles/Vol] 7 mmol/L Low 9-18 [facility] Comment on above: Order Comment: Speci men Type: BLOOD SPECIMENOrdering Facility: [facility] Address: [address] [place] [address] Performed By: #### 1 9123-9, 2777-1, 71566-6 ####[facility]ORATORYCLIA [id number] [address] [place] [facility] Calcium [Mass/Vol] 8.3 mg/dL Low 8.5-10.2 [facility] Comment on above: Order Comment: Speci men Type: BLOOD SPECIMENOrdering Facility: [facility] Address: [address] [place] [address] Performed By: #### 1 9123-9, 27711-04, 18788-0 ####[facility]ORATORYCLIA [id number] [place] [address] [place] Chloride [Moles/Vol] 101 mmol/L Normal 97-105 [facility] Comment on above: Order Comment: Speci men Type: BLOOD SPECIMENOrdering Facility: [facility] Address: [address] [place] [address] Performed By: #### 1 9123-9, 2776-05, 81695-0 ####[facility]ATORYCLIA [id number] [address] [place] CO2 [Moles/Vol] 32 mmol/L High 22-30 [facility] Comment on above: Order Comment: Speci men Type: BLOOD SPECIMENOrdering Facility: [facility] Address: [address] [place] [address] Performed By: #### 1 9123-9, 2776-05, 46224-2 ####[facility]ATORYCLIA [id number] [address] [place] Creatinine [Mass/Vol] 0.70 mg/dL Low 0.73-1.22 [facility] Comment on above: Order Comment: Speci men Type: BLOOD SPECIMENOrdering Facility: [facility] Address: [address] [place] [address] Performed By: #### 1 9123-9, 27711-04, 78908-0 ####[facility]ORATORYCLIA [id number] [address] [place] ESTIMATED GLOMERULAR FILTRATION RATE 100 mL/min/1.73m??? Normal >=60 [facility] Comment on above: Order Comment: Speci men Type: BLOOD SPECIMENOrdering Facility: [facility] Address: [address] [place] [address] Result Comment: Luzmaria mated Glomerular Filtration Rate [...] GFR. Performed By: #### 1 9123-9, 2777-1, 00361-8 ####[facility]ORATORYCLIA [id number] [place] [address] [place] Glucose [Mass/Vol] 104 mg/dL High 74-99 [facility] Comment on above: Order Comment: Shira feldman Type: BLOOD SPECIMENOrdering Facility: [facility] Address: [address] [place] [address] Result Comment: The [place] Diabetes Association (ADA) provides guidance for cutoff [...] Standards of Medical Care in Diabetes 2016, [place] Diabetes [employer]. Diabetes Care. 2016.39(Suppl 1). Performed By: #### 1 9123-9, 2777-, 23606-8 ####[facility] LABORATORYIA [id number] [place] [address] [place] Potassium [Moles/Vol] 3.7 mmol/L Normal 3.7-5.1 [facility] Comment on above: Order Comment: Shira feldman Type: BLOOD SPECIMENOrdering Facility: [facility] Address: [address] [place] [address] Performed By: #### 1 9123-9, 2777-, 80931-8 ####[facility] LABORATORYCLIA [id number] [address] STATES [facility] Sodium [Moles/Vol] 140 mmol/L Normal 136-144 [facility] Comment on above: Order Comment: Speci men Type: BLOOD SPECIMENOrdering Facility: [facility] Address: [address] [place] [address] Performed By: #### 1 9123-9, 2777-1, 79272-6 ####[facility]ORATORYCLIA [id number] [address] STATES OF [facility] Urea nitrogen [Mass/Vol] 12 mg/dL Normal 9-24 [facility] Comment on above: Order Comment: Speci men Type: BLOOD SPECIMENOrdering Facility: [facility] Address: [address] [place] [address] Performed By: #### 1 9123-9, 2777-1, 25931-6 ####[facility]ORATORYCLIA [id number] [address] CBC panel Auto (Bld)on 07-12 Erythrocyte distribution width (RBC) [Ratio] 16.1 % High 11.5-15.0 [facility] Comment on above: Order Comment: Speci men Type: BLOOD SPECIMENOrdering Facility: [facility] Address: [address] [place] [address] Performed By: #### 5 8410-2 ####[facility] LABORATORYCLIA [id number] [address] [place] Hematocrit (Bld) [Volume fraction] 28.2 % Low 39.0-51.0 [facility] Comment on above: Order Comment: Speci men Type: BLOOD SPECIMENOrdering Facility: [facility] Address: [address] [place] [address] Performed By: #### 5 8410-2 ####[facility]ORATORYCLIA [id number] [address] [place] Hemoglobin (Bld) [Mass/Vol] 8.5 g/dL Low 13.0-17.0 [facility] Comment on above: Order Comment: Speci men Type: BLOOD SPECIMENOrdering Facility: [facility] Address: [address] [place] [address] Performed By: #### 5 8410-2 ####[facility]ORATORYCLIA [id number] [address] MCH (RBC) [Entitic mass] 26.8 pg Normal 26.0-34.0 [facility] Comment on above: Order Comment: Speci men Type: BLOOD SPECIMENOrdering Facility: [facility] Address: [address] [place] [address] Performed By: #### 5 8410-2 ####[facility]ORATORYCLIA [id number] [address] MCHC (RBC) [Mass/Vol] 30.1 g/dL Low 30.5-36.0 [facility] Comment on above: Order Comment: Speci men Type: BLOOD SPECIMENOrdering Facility: [facility] Address: [address] [place] [address] Performed By: #### 5 8410-2 ####[facility]ORATORYCLIA [id number] [address] MCV (RBC) [Entitic vol] 89.0 fL Normal 80.0-100.0 [facility] Comment on above: Order Comment: Speci men Type: BLOOD SPECIMENOrdering Facility: [facility] Address: [address] [place] [address] Performed By: #### 5 8410-2 ####[facility]ORATORYCLIA [id number] [address] Nucleated RBC (Bld) [#/Vol] 10*3/uL Normal <0.01 [facility] Comment on above: Order Comment: Speci men Type: BLOOD SPECIMENOrdering Facility: [facility] Address: [address] [place] [address] Performed By: #### 5 8410-2 ####[facility]ORATORYCLIA [id number] [address] [place] Platelet mean volume (Bld) [Entitic vol] 9.6 fL Normal 9.0-12.7 [facility] Comment on above: Order Comment: Speci men Type: BLOOD SPECIMENOrdering Facility: [facility] Address: [address] [place] [address] Performed By: #### 5 8410-2 ####[facility]ORATORYCLIA [id number] [place] [address] [place] Platelets (Bld) [#/Vol] 340 10*3/uL Normal 150-400 [facility] Comment on above: Order Comment: Speci men Type: BLOOD SPECIMENOrdering Facility: [facility] Address: [address] [place] [address] Performed By: #### 5 8410-2 ####[facility]ORATORYCLIA [id number] [place] [address] [place] RBC (Bld) [#/Vol] 3.17 10*6/uL Low 4.20-6.00 [facility] Comment on above: Order Comment: Speci men Type: BLOOD SPECIMENOrdering Facility: [facility] Address: [address] [place] [address] Performed By: #### 5 8410-2 ####[facility] LABORATORYCLIA [id number] [place] [address] [place] WBC (Bld) [#/Vol] 8.66 10*3/uL Normal 3.70-11.00 [facility] Comment on above: Order Comment: Speci men Type: BLOOD SPECIMENOrdering Facility: [facility] Address: [address] [place] [address] Performed By: #### 5 8410-2 ####[facility] LABORATORYCLIA [id number] [address] [place] CONSULTon 07-12-2021 CONSULT Normal [facility] CONSULT PROGon 07-12-2021 CONSULT PROG Normal [facility] Magnesium SerPl-mCncon 07-12 Magnesium [Mass/Vol] 2.1 mg/dL Normal 1.7-2.3 [facility] Comment on above: Order Comment: Speci men Type: BLOOD SPECIMENOrdering Facility: [facility] Address: [address] [place] [address] Performed By: #### 1 9123-9, 2777-1, 33451-3 ####[facility]ORATORYCLIA [id number] [address] OF [facility] NURSING PROGon 07-12-2021 NURSING PROG Normal [facility] Phosphate SerPl-mCncon 07-12 Phosphate [Mass/Vol] 3.1 mg/dL Normal 2.7-4.8 [facility] Comment on above: Order Comment: Speci men Type: BLOOD SPECIMENOrdering Facility: [facility] Address: [address] [place] [address] Performed By: #### 1 9123-9, 2777-1, 53519-4 ####[facility]ORATORYCLIA [id number] [address] OF [facility] THERAPY NTon 07-12-2021 THERAPY NT Normal [facility] aPTT PPPon 07-12-2021 aPTT Coag (PPP) [Time] 49.5 s High 23.0-32.[address] [facility] Comment on above: Order Comment: Speci men Type: BLOOD SPECIMENOrdering Facility: [facility] Address: [address] [place] [address] Performed By: #### 1 4979-9 ####[facility]ORATORYCLIA [id number] [address] aPTT Coag (PPP) [Time] 68.0 s High 23.0-32.[address] [facility] Comment on above: Order Comment: Speci men Type: BLOOD SPECIMENOrdering Facility: [facility] Address: [address] [place] [address] Performed By: #### 1 4979-9 ####[facility]ORATORYCLIA [id number] [place] [address] [place] aPTT Coag (PPP) [Time] 80.0 s High 23.0-32.[address] [facility] Comment on above: Order Comment: Speci men Type: BLOOD SPECIMENOrdering Facility: [facility] Address: [address] [place] [address] Performed By: #### 1 4979-9 ####[facility]ORATORYCLIA [id number] [address] [place] CASE MGT INIT ASSESon 2021 CASE MGT INIT ASSES Normal [facility] CBC panel Auto (Bld)on 07-11 Erythrocyte distribution width (RBC) [Ratio] 16.3 % High 11.5-15.0 [facility] Comment on above: Order Comment: Speci men Type: BLOOD SPECIMENOrdering Facility: [facility] Address: [address] [place] [address] Performed By: #### 5 8410-2 ####[facility]ITALCLIA [id number] [address] STATES [facility] Hematocrit (Bld) [Volume fraction] 28.3 % Low 39.0-51.0 [facility] Comment on above: Order Comment: Speci men Type: BLOOD SPECIMENOrdering Facility: [facility] Address: [address] [place] [address] Performed By: #### 5 8410-2 ####[facility]ORATORYCLIA [id number] [address] [place] Hemoglobin (Bld) [Mass/Vol] 8.8 g/dL Low 13.0-17.0 [facility] Comment on above: Order Comment: Speci men Type: BLOOD SPECIMENOrdering Facility: [facility] Address: [address] [place] [address] Performed By: #### 5 8410-2 ####[facility]ORATORYCLIA [id number] [address] [place] MCH (RBC) [Entitic mass] 27.4 pg Normal 26.0-34.0 [facility] Comment on above: Order Comment: Speci men Type: BLOOD SPECIMENOrdering Facility: [facility] Address: [address] [place] [address] Performed By: #### 5 8410-2 ####[facility]ORATORYCLIA [id number] [place] [address] [place] MCHC (RBC) [Mass/Vol] 31.1 g/dL Normal 30.5-36.0 [facility] Comment on above: Order Comment: Speci men Type: BLOOD SPECIMENOrdering Facility: [facility] Address: [address] [place] [address] Performed By: #### 5 8410-2 ####[facility]ORATORYCLIA [id number] [address] [place] MCV (RBC) [Entitic vol] 88.2 fL Normal 80.0-100.0 [facility] Comment on above: Order Comment: Speci men Type: BLOOD SPECIMENOrdering Facility: [facility] Address: [address] [place] [address] Performed By: #### 5 8410-2 ####[facility]ATORYCLIA [id number] [address] [place] Nucleated RBC (Bld) [#/Vol] 10*3/uL Normal <0.01 [facility] Comment on above: Order Comment: Speci men Type: BLOOD SPECIMENOrdering Facility: [facility] Address: [address] [place] [address] Performed By: #### 5 8410-2 ####[facility]ORATORYCLIA [id number] [address] [place] Platelet mean volume (Bld) [Entitic vol] 9.7 fL Normal 9.0-12.7 [facility] Comment on above: Order Comment: Speci men Type: BLOOD SPECIMENOrdering Facility: [facility] Address: [address] [place] [address] Performed By: #### 5 8410-2 ####[facility]ORATORYCLIA [id number] [address] Platelets (Bld) [#/Vol] 315 10*3/uL Normal 150-400 [facility] Comment on above: Order Comment: Speci men Type: BLOOD SPECIMENOrdering Facility: [facility] Address: [address] [place] [address] Performed By: #### 5 8410-2 ####[facility]ORATORYCLIA [id number] [address] STATES OF [facility] RBC (Bld) [#/Vol] 3.21 10*6/uL Low 4.20-6.00 [facility] Comment on above: Order Comment: Speci men Type: BLOOD SPECIMENOrdering Facility: [facility] Address: [address] [place] [address] Performed By: #### 5 8410-2 ####[facility]ORATORYCLIA [id number] [address] WBC (Bld) [#/Vol] 9.18 10*3/uL Normal 3.70-11.00 [facility] Comment on above: Order Comment: Speci men Type: BLOOD SPECIMENOrdering Facility: [facility] Address: [address] [place] [address] Performed By: #### 5 8410-2 ####[facility]ORATORYCLIA [id number] [address] CONSULT PROGon 07-11-2021 CONSULT PROG Normal [facility] CT BRAIN WO IVCONon 07-12-19 CT BRAIN WO IVCON Normal [facility] Magnesium SerPl-mCncon 07-11 Magnesium [Mass/Vol] 2.1 mg/dL Normal 1.7-2.3 [facility] Comment on above: Order Comment: Speci men Type: BLOOD SPECIMENOrdering Facility: [facility] Address: [address] [place] [address] Performed By: #### 1 9123-9, 2777-1 ####[facility]ORATORYCLIA [id number] [address] NURSING PROGon 07-11-2021 NURSING PROG Normal [facility] NURSING PROG Normal [facility] Phosphate SerPl-mCncon 07-11 Phosphate [Mass/Vol] 3.4 mg/dL Normal 2.7-4.8 [facility] Comment on above: Order Comment: Speci men Type: BLOOD SPECIMENOrdering Facility: [facility] Address: [address] [place] [address] Performed By: #### 1 9123-9, 2777-1 ####[facility]ORATORYCLIA [id number] [address] THERAPY NTon 07-11-2021 THERAPY NT Normal [facility] Vancomycin random [Mass/Vol] on 07-11-2021 Vancomycin [Mass/Vol] 28.6 ug/mL High 10.0-20.0 [facility] Comment on above: Order Comment: Speci men Type: BLOOD SPECIMENOrdering Facility: [facility] Address: [address] [place] [address] Result Comment: Refe rence ranges and high/low indicator flags are provided as general guidelines only. The treating physician must determine appropriate target levels/dosing based on the specific clinical situation. Performed By: #### 4 091-5 ####[facility]ORATORYCLIA [id number] [address] aPTT PPPon 07-11-2021 aPTT Coag (PPP) [Time] 62.0 s High 23.0-32.[address] [facility] Comment on above: Order Comment: Speci men Type: BLOOD SPECIMENOrdering Facility: [facility] Address: [address] [place] [address] Performed By: #### 1 4979-9 ####[facility] LABORATORYCLIA [id number] [address] aPTT Coag (PPP) [Time] 52.7 s High 23.0-32.[address] [facility] Comment on above: Order Comment: Speci men Type: BLOOD SPECIMENOrdering Facility: [facility] Address: [address] [place] [address] Performed By: #### 1 4979-9 ####[facility] LABORATORYCLIA [id number] [place] [address] [place] aPTT Coag (PPP) [Time] 29.9 s Normal 23.0-32.[address] [facility] Comment on above: Order Comment: Speci men Type: BLOOD SPECIMENOrdering Facility: [facility] Address: [address] [place] [address] Performed By: #### 1 4979-9 ####[facility] LABORATORYCLIA [id number] [place] [address] [place] Basic metabolic 2000 panelon 07-10-2021 Anion gap [Moles/Vol] 14 mmol/L Normal 9-18 [facility] Comment on above: Order Comment: Speci men Type: BLOOD SPECIMENOrdering Facility: [facility] Address: [address] [place] [address] Performed By: #### 1 9123-9, 2777-1, 17780-5 ####[facility]ITALCLIA [id number] [place] [address] [place] Calcium [Mass/Vol] 8.5 mg/dL Normal 8.5-10.2 [facility] Comment on above: Order Comment: Speci men Type: BLOOD SPECIMENOrdering Facility: [facility] Address: [address] [place] [address] Performed By: #### 1 9123-9, 2777-1, 19447-5 ####[facility] LABORATORYCLIA [id number] [address] [place] Chloride [Moles/Vol] 100 mmol/L Normal 97-105 [facility] Comment on above: Order Comment: Speci men Type: BLOOD SPECIMENOrdering Facility: [facility] Address: [address] [place] [address] Performed By: #### 1 9123-9, 2777-1, 08068-0 ####[facility]ITALCLIA [id number] [address] STATES OF [facility] CO2 [Moles/Vol] 27 mmol/L Normal 22-30 [facility] Comment on above: Order Comment: Speci men Type: BLOOD SPECIMENOrdering Facility: [facility] Address: [address] [place] [address] Performed By: #### 1 9123-9, 2777, 42330-6 ####[facility]ITALCLIA [id number] [address] Creatinine [Mass/Vol] 0.66 mg/dL Low 0.73-1.22 [facility] Comment on above: Order Comment: Speci men Type: BLOOD SPECIMENOrdering Facility: [facility] Address: [address] [place] [address] Performed By: #### 1 9123-9, 2777, 25134-9 ####[facility] [id number] [address] ESTIMATED GLOMERULAR FILTRATION RATE 102 mL/min/1.73m??? Normal >=60 [facility] Comment on above: Order Comment: Speci men Type: BLOOD SPECIMENOrdering Facility: [facility] Address: [address] [place] [address] Result Comment: Luzmaria mated Glomerular Filtration Rate [...] GFR. Performed By: #### 1 9123-9, 2777-1, 01475-8 ####[facility] LABORATORYCLIA [id number] [place] [address] [place] Glucose [Mass/Vol] 93 mg/dL Normal 74-99 [facility] Comment on above: Order Comment: Shira feldman Type: BLOOD SPECIMENOrdering Facility: [facility] Address: [address] [place], [place] [id number] Result Comment: The [place] Diabetes Association (ADA) provides guidance for cutoff [...] Standards of Medical Care in Diabetes 2016, [place] [employer]. Diabetes Care. 2016.39(Suppl 1). Performed By: #### 1 9123-9, 2777-, 98590-1 ####[facility]ORATORYCLIA [id number] [place] [address] [place] Potassium [Moles/Vol] 3.5 mmol/L Low 3.7-5.1 [facility] Comment on above: Order Comment: Shira feldman Type: BLOOD SPECIMENOrdering Facility: [facility] Address: [address] [place], [place] [id number] Performed By: #### 1 9123-9, 2777-, 90828-7 ####[facility] LABORATORYCLIA [id number] [place] [address] [place] Sodium [Moles/Vol] 141 mmol/L Normal 136-144 [facility] Comment on above: Order Comment: Shira feldman Type: BLOOD SPECIMENOrdering Facility: [facility] Address: [address] [place], [place] [id number] Performed By: #### 1 9123-9, 2777-, 60118-0 ####[facility] LABORATORYCLIA [id number] [place] [address] [place] Urea nitrogen [Mass/Vol] 11 mg/dL Normal 9-24 [facility] Comment on above: Order Comment: Speci men Type: BLOOD SPECIMENOrdering Facility: [facility] Address: [address] [place] [address] Performed By: #### 1 9123-9, 2777-1, 80433-3 ####[facility] LABORATORYCLIA [id number] [address] [place] [facility] CBC panel Auto (Bld)on 07-10 Erythrocyte distribution width (RBC) [Ratio] 16.2 % High 11.5-15.0 [facility] Comment on above: Order Comment: Speci men Type: BLOOD SPECIMENOrdering Facility: [facility] Address: [address] [place] [address] Performed By: #### 5 8410-2 ####[facility] LABORATORYCLIA [id number] [address] STATES [facility] Hematocrit (Bld) [Volume fraction] 30.6 % Low 39.0-51.0 [facility] Comment on above: Order Comment: Speci men Type: BLOOD SPECIMENOrdering Facility: [facility] Address: [address] [place] [address] Performed By: #### 5 8410-2 ####[facility] LABORATORYCLIA [id number] [address] STATES OF [facility] Hemoglobin (Bld) [Mass/Vol] 9.6 g/dL Low 13.0-17.0 [facility] Comment on above: Order Comment: Speci men Type: BLOOD SPECIMENOrdering Facility: [facility] Address: [address] [place] [address] Performed By: #### 5 8410-2 ####[facility] LABORATORYCLIA [id number] [address] MCH (RBC) [Entitic mass] 28.3 pg Normal 26.0-34.0 [facility] Comment on above: Order Comment: Speci men Type: BLOOD SPECIMENOrdering Facility: [facility] Address: [address] [place] [address] Performed By: #### 5 8410-2 ####[facility]ORATORYCLIA [id number] [address] MCHC (RBC) [Mass/Vol] 31.4 g/dL Normal 30.5-36.0 [facility] Comment on above: Order Comment: Speci men Type: BLOOD SPECIMENOrdering Facility: [facility] Address: [address] [place] [address] Performed By: #### 5 8410-2 ####[facility] LABORATORYCLIA [id number] [address] OF [place] MCV (RBC) [Entitic vol] 90.3 fL Normal 80.0-100.0 [facility] Comment on above: Order Comment: Speci men Type: BLOOD SPECIMENOrdering Facility: [facility] Address: [address] [place] [address] Performed By: #### 5 8410-2 ####[facility] LABORATORYCLIA [id number] [address] OF [facility] Nucleated RBC (Bld) [#/Vol] 10*3/uL Normal <0.01 [facility] Comment on above: Order Comment: Speci men Type: BLOOD SPECIMENOrdering Facility: [facility] Address: [address] [place] [address] Performed By: #### 5 8410-2 ####[facility]ORATORYCLIA [id number] [address] Platelet mean volume (Bld) [Entitic vol] 9.7 fL Normal 9.0-12.7 [facility] Comment on above: Order Comment: Speci men Type: BLOOD SPECIMENOrdering Facility: [facility] Address: [address] [place] [address] Performed By: #### 5 8410-2 ####[facility] LABORATORYCLIA [id number] [address] [place] Platelets (Bld) [#/Vol] 306 10*3/uL Normal 150-400 [facility] Comment on above: Order Comment: Speci men Type: BLOOD SPECIMENOrdering Facility: [facility] Address: [address] [place] [address] Performed By: #### 5 8410-2 ####[facility] LABORATORYCLIA [id number] [place] [address] [place] RBC (Bld) [#/Vol] 3.39 10*6/uL Low 4.20-6.00 [facility] Comment on above: Order Comment: Speci men Type: BLOOD SPECIMENOrdering Facility: [facility] Address: [address] [place] [address] Performed By: #### 5 8410-2 ####[facility] LABORATORYCLIA [id number] [address] STATES OF [facility] WBC (Bld) [#/Vol] 9.81 10*3/uL Normal 3.70-11.00 [facility] Comment on above: Order Comment: Speci men Type: BLOOD SPECIMENOrdering Facility: [facility] Address: [address] [place] [address] Performed By: #### 5 8410-2 ####[facility] LABORATORYCLIA [id number] [address] STATES [place] CONSULTon 07-10-2021 CONSULT Normal [facility] CONSULT Normal [facility] Magnesium SerPl-mCncon 07-10 Magnesium [Mass/Vol] 1.9 mg/dL Normal 1.7-2.3 [facility] Comment on above: Order Comment: Speci men Type: BLOOD SPECIMENOrdering Facility: [facility] Address: [address] [place] [address] Performed By: #### 1 9123-9, 2777-1, 51577-4 ####[facility] LABORATORYCLIA [id number] [place] [address] [place] NURSING PROGon 07-10-2021 NURSING PROG Normal [facility] NURSING PROG Normal [facility] NUTRITIONon 07-10-2021 NUTRITION Normal [facility] Phosphate SerPl-mCncon 07-10 Phosphate [Mass/Vol] 3.6 mg/dL Normal 2.7-4.8 [facility] Comment on above: Order Comment: Speci men Type: BLOOD SPECIMENOrdering Facility: [facility] Address: [address] [place] [address] Performed By: #### 1 9123-9, 2777-1, 06006-4 ####[facility]ORATORYCLIA [id number] [place] [address] [place] US DVT LOWER BILon US DVT LOWER RAINER Normal [facility] aPTT PPPon 07-10-2021 aPTT Coag (PPP) [Time] 28.8 s Normal 23.0-32.[address] [facility] Comment on above: Order Comment: Speci men Type: BLOOD SPECIMENOrdering Facility: [facility] Address: [address] [place] [address] Performed By: #### 1 4979-9 ####[facility] LABORATORYCLIA [id number] [address] aPTT Coag (PPP) [Time] 28.4 s Normal 23.0-32.[address] [facility] Comment on above: Order Comment: Speci men Type: BLOOD SPECIMENOrdering Facility: [facility] Address: [address] [place] [address] Performed By: #### 1 4979-9 ####[facility]ORATORYCLIA [id number] [place] [address] [place] ALLIED HEALTHon 07-09-2021 ALLIED HEALTH Normal [facility] Basic metabolic 2000 panelon 07-09-2021 Anion gap [Moles/Vol] 9 mmol/L Normal 9-18 [facility] Comment on above: Order Comment: Speci men Type: BLOOD SPECIMENOrdering Facility: [facility] Address: [address] [place] [address] Performed By: #### 1 9123-9, 2777, 05838-0 ####[facility] LABORATORYCLIA [id number] [place] [address] [place] Calcium [Mass/Vol] 8.3 mg/dL Low 8.5-10.2 [facility] Comment on above: Order Comment: Speci men Type: BLOOD SPECIMENOrdering Facility: [facility] Address: [address] [place] [address] Performed By: #### 1 9123-9, 27711-04, 65333-3 ####[facility] LABORATORYCLIA [id number] [place] [address] [place] Chloride [Moles/Vol] 100 mmol/L Normal 97-105 [facility] Comment on above: Order Comment: Speci men Type: BLOOD SPECIMENOrdering Facility: [facility] Address: [address] [place] [address] Performed By: #### 1 9123-9, 27711-04, 55181-5 ####[facility] LABORATORYCLIA [id number] [address] STATES OF [place] CO2 [Moles/Vol] 29 mmol/L Normal 22-30 [facility] Comment on above: Order Comment: Speci men Type: BLOOD SPECIMENOrdering Facility: [facility] Address: [address] [place] [address] Performed By: #### 1 9123-9, 2776-05, 96068-2 ####[facility] LABORATORYCLIA [id number] [place] [address] [place] Creatinine [Mass/Vol] 0.61 mg/dL Low 0.73-1.22 [facility] Comment on above: Order Comment: Speci men Type: BLOOD SPECIMENOrdering Facility: [facility] Address: [address] [place] [address] Performed By: #### 1 9123-9, 27711-04, 11309-7 ####[facility] LABORATORYCLIA [id number] [place] [address] [place] ESTIMATED GLOMERULAR FILTRATION RATE 104 mL/min/1.73m??? Normal >=60 [facility] Comment on above: Order Comment: Shira feldman Type: BLOOD SPECIMENOrdering Facility: [facility] Address: [address] [place], [place] [address] Result Comment: Luzmaria mated Glomerular Filtration Rate [...] GFR. Performed By: #### 1 9123-9, 2777-1, 96486-7 ####[facility]PITALCLIA [id number] [place] [address] [place] Glucose [Mass/Vol] 106 mg/dL High 74-99 [facility] Comment on above: Order Comment: Shira feldman Type: BLOOD SPECIMENOrdering Facility: [facility] Address: [address] [place] [address] Result Comment: The [place] Diabetes Association (ADA) provides guidance for cutoff [...] Standards of Medical Care in Diabetes 2016, [place] [employer]. Diabetes Care. 2016.39(Suppl 1). Performed By: #### 1 9123-9, 2777-1, 63084-8 ####[facility] LABORATORYCLIA [id number] [place] [address] [place] Potassium [Moles/Vol] 3.6 mmol/L Low 3.7-5.1 [facility] Comment on above: Order Comment: Speci men Type: BLOOD SPECIMENOrdering Facility: [facility] Address: [address] [place] [address] Performed By: #### 1 9123-9, 2777-, 38338-9 ####[facility] LABORATORYCLIA [id number] [address] STATES OF [facility] Sodium [Moles/Vol] 138 mmol/L Normal 136-144 [facility] Comment on above: Order Comment: Speci men Type: BLOOD SPECIMENOrdering Facility: [facility] Address: [address] [place] [address] Performed By: #### 1 9123-9, 27711-04, 72010-2 ####[facility]ORATORYCLIA [id number] [address] STATES OF [facility] Urea nitrogen [Mass/Vol] 12 mg/dL Normal 9-24 [facility] Comment on above: Order Comment: Speci men Type: BLOOD SPECIMENOrdering Facility: [facility] Address: [address] [place] [address] Performed By: #### 1 9123-9, 27711-04, 40492-9 ####[facility] LABORATORYCLIA [id number] [address] STATES OF [facility] CBC panel Auto (Bld)on 07-09 Erythrocyte distribution width (RBC) [Ratio] 16.2 % High 11.5-15.0 [facility] Comment on above: Order Comment: Speci men Type: BLOOD SPECIMENOrdering Facility: [facility] Address: [address] [place] [address] Performed By: #### 5 8410-2 ####[facility] LABORATORYCLIA [id number] [address] Hematocrit (Bld) [Volume fraction] 29.0 % Low 39.0-51.0 [facility] Comment on above: Order Comment: Speci men Type: BLOOD SPECIMENOrdering Facility: [facility] Address: [address] [place] [address] Performed By: #### 5 8410-2 ####[facility] LABORATORYCLIA [id number] [address] Hemoglobin (Bld) [Mass/Vol] 8.8 g/dL Low 13.0-17.0 [facility] Comment on above: Order Comment: Speci men Type: BLOOD SPECIMENOrdering Facility: [facility] Address: [address] [place] [address] Performed By: #### 5 8410-2 ####[facility] LABORATORYCLIA [id number] [address] MCH (RBC) [Entitic mass] 27.0 pg Normal 26.0-34.0 [facility] Comment on above: Order Comment: Speci men Type: BLOOD SPECIMENOrdering Facility: [facility] Address: [address] [place] [address] Performed By: #### 5 8410-2 ####[facility] LABORATORYCLIA [id number] [address] MCHC (RBC) [Mass/Vol] 30.3 g/dL Low 30.5-36.0 [facility] Comment on above: Order Comment: Speci men Type: BLOOD SPECIMENOrdering Facility: [facility] Address: [address] [place] [address] Performed By: #### 5 8410-2 ####[facility] LABORATORYCLIA [id number] [address] MCV (RBC) [Entitic vol] 89.0 fL Normal 80.0-100.0 [facility] Comment on above: Order Comment: Speci men Type: BLOOD SPECIMENOrdering Facility: [facility] Address: [address] [place] [address] Performed By: #### 5 8410-2 ####[facility]ORATORYCLIA [id number] [address] Nucleated RBC (Bld) [#/Vol] 10*3/uL Normal <0.01 [facility] Comment on above: Order Comment: Speci men Type: BLOOD SPECIMENOrdering Facility: [facility] Address: [address] [place], [place] [address] Performed By: #### 5 8410-2 ####[facility] LABORATORYCLIA [id number] [address] STATES [place] Platelet mean volume (Bld) [Entitic vol] 9.8 fL Normal 9.0-12.7 [facility] Comment on above: Order Comment: Speci men Type: BLOOD SPECIMENOrdering Facility: [facility] Address: [address] [place] [address] Performed By: #### 5 8410-2 ####[facility]ORATORYCLIA [id number] [address] STATES [place] Platelets (Bld) [#/Vol] 281 10*3/uL Normal 150-400 [facility] Comment on above: Order Comment: Speci men Type: BLOOD SPECIMENOrdering Facility: [facility] Address: [address] [place], [place] [address] Performed By: #### 5 8410-2 ####[facility] LABORATORYCLIA [id number] [place] [address] [place] RBC (Bld) [#/Vol] 3.26 10*6/uL Low 4.20-6.00 [facility] Comment on above: Order Comment: Speci men Type: BLOOD SPECIMENOrdering Facility: [facility] Address: [address] [place], [place] [address] Performed By: #### 5 8410-2 ####[facility] LABORATORYCLIA [id number] [address] OF [place] WBC (Bld) [#/Vol] 9.12 10*3/uL Normal 3.70-11.00 [facility] Comment on above: Order Comment: Speci men Type: BLOOD SPECIMENOrdering Facility: [facility] Address: [address] [place], [place] [address] Performed By: #### 5 8410-2 ####[facility] LABORATORYCLIA [id number] [address] OF [facility] CONSULT PROGon 07-09-2021 CONSULT PROG Normal [facility] CONSULT PROG Normal [facility] HISTORY PHYSICALon HISTORY PHYSICAL Normal [facility] Magnesium SerPl-mCncon 07-09 Magnesium [Mass/Vol] 1.9 mg/dL Normal 1.7-2.3 [facility] Comment on above: Order Comment: Speci men Type: BLOOD SPECIMENOrdering Facility: [facility] Address: [address] [place] [address] Performed By: #### 1 9123-9, 2777-1, 55388-8 ####[facility]ORATORYCLIA [id number] [address] Phosphate SerPl-ncon 07-09 Phosphate [Mass/Vol] 3.6 mg/dL Normal 2.7-4.8 [facility] Comment on above: Order Comment: Speci men Type: BLOOD SPECIMENOrdering Facility: [facility] Address: [address] [place] [address] Performed By: #### 1 9123-9, 2777-1, 71505-7 ####[facility] LABORATORYCLIA [id number] [address] [place] THERAPY NTon 07-09-2021 THERAPY [...] 00-7 ####[facility] LABORATORYCLIA [id number] [address] Bacteria identified Cx Nom (Bld) CULTURE, BLOOD: No growth 5 days [facility] Comment on above: Performed By: #### 6 00-7 ####[facility] LABORATORYCLIA [id number] [address] Bacteria CSF Culton 07-09-19 22 Bacteria identified Cx Nom (CSF) CULTURE, CSF: No growth 14 days GRAM STAIN: No organisms seen No Polymorphonuclear Leukocytes Few Red Blood Cells Gram stain performed on cytospun specimen. Normal [facility] Comment on above: Performed By: #### 6 06-4 ####[facility] LABORATORYCLIA [id number] [address] Bacteria Ur Culton 2 Bacteria identified Cx Nom (U) ORGANISM ID: 1 10,000 -<50,000 CFU/ml Proteus species Insignificant colony count. No further workup. ORGANISM ID: 2 <10,000 CFU/ml Normal urogenital chris Normal [facility] Comment on above: Performed By: #### 6 30-4 ####[facility]ORATORYCLIA [id number] [address] Bacteria Wnd Culton 07-09-19 22 Bacteria identified Cx Nom (Wound) ORGANISM ID: 1 Coagulase negative staphylococcus Growth in Enrichment Broth Only No susceptibility testing done. Call lab within 72 hours to initiate work-up if clinically indicated. GRAM STAIN: Account credited. Not performed on this specimen type. [facility] Comment on above: Performed By: #### 6 462-6 ####[facility]ORATORYCLIA [id number] [address] Bacteria identified Cx Nom (Wound) ORGANISM ID: 1 Rare Coagulase negative staphylococcus No susceptibility testing done. Call lab within 72 hours to initiate work-up if clinically indicated. GRAM STAIN: Account credited. Not performed on this specimen type. [facility] Comment on above: Performed By: #### 6 462-6 ####[facility]ORATORYCLIA [id number] [place] [address] [place] Bacteria identified Cx Nom (Wound) CULTURE, INTRAOPERATIVE HARDWARE: No growth 14 days GRAM STAIN: Account credited. Not performed on this specimen type. Normal [facility] Comment on above: Performed By: #### 6 462-6 ####[facility]ORATORYCLIA [id number] [place] [address] [place] Basic metabolic 2000 panelon 07-08-2021 Anion gap [Moles/Vol] 9 mmol/L Normal 9-18 [facility] Comment on above: Order Comment: Speci men Type: BLOOD SPECIMENOrdering Facility: [facility] Address: [address] [place] [address] Performed By: #### 2 4321-2 ####[facility] LABORATORYCLIA [id number] [place] [address] [place] Calcium [Mass/Vol] 8.5 mg/dL Normal 8.5-10.2 [facility] Comment on above: Order Comment: Speci men Type: BLOOD SPECIMENOrdering Facility: [facility] Address: [address] [place] [address] Performed By: #### 2 4321-2 ####[facility] LABORATORYCLIA [id number] [address] [place] Chloride [Moles/Vol] 98 mmol/L Normal 97-105 [facility] Comment on above: Order Comment: Speci men Type: BLOOD SPECIMENOrdering Facility: [facility] Address: [address] [place] [address] Performed By: #### 2 4321-2 ####[facility] LABORATORYCLIA [id number] [address] [place] CO2 [Moles/Vol] 31 mmol/L High 22-30 [facility] Comment on above: Order Comment: Speci men Type: BLOOD SPECIMENOrdering Facility: [facility] Address: [address] [place] [address] Performed By: #### 2 4321-2 ####[facility] LABORATORYCLIA [id number] [address] STATES OF [facility] Creatinine [Mass/Vol] 0.64 mg/dL Low 0.73-1.22 [facility] Comment on above: Order Comment: Shira francia Type: BLOOD SPECIMENOrdering Facility: [facility] Address: [address] [place] [address] Performed By: #### 2 4321-2 ####[facility] LABORATORYCLIA [id number] [address] ESTIMATED GLOMERULAR FILTRATION RATE 102 mL/min/1.73m??? Normal >=60 [facility] Comment on above: Order Comment: Shira feldman Type: BLOOD SPECIMENOrdering Facility: [facility] Address: [address] [place] [address] Result Comment: Luzmaria mated Glomerular Filtration Rate [...] 4321-2 ####[facility]ORATORYCLIA [id number] [address] [place] Glucose [Mass/Vol] 114 mg/dL High 74-99 [facility] Comment on above: Order Comment: Johncara feldman Type: BLOOD SPECIMENOrdering Facility: [facility] Address: [address] [place] [address] Result Comment: The [place] Diabetes Association (ADA) provides guidance for cutoff [...] Standards of Medical Care in Diabetes 2016, [place] [employer]. Diabetes Care. 2016.39(Suppl 1). Performed By: #### 2 4321-2 ####[facility]ORATORYCLIA [id number] [place] [address] [place] Potassium [Moles/Vol] 3.4 mmol/L Low 3.7-5.1 [facility] Comment on above: Order Comment: Speci men Type: BLOOD SPECIMENOrdering Facility: [facility] Address: [address] [place] [address] Performed By: #### 2 4321-2 ####[facility]ORATORYCLIA [id number] [address] STATES [facility] Sodium [Moles/Vol] 138 mmol/L Normal 136-144 [facility] Comment on above: Order Comment: Speci men Type: BLOOD SPECIMENOrdering Facility: [facility] Address: [address] [place] [address] Performed By: #### 2 4321-2 ####[facility]ORATORYCLIA [id number] [address] STATES [facility] Urea nitrogen [Mass/Vol] 14 mg/dL Normal 9-24 [facility] Comment on above: Order Comment: Speci men Type: BLOOD SPECIMENOrdering Facility: [facility] Address: [address] [address] Performed By: #### 2 4321-2 ####[facility]ORATORYCLIA [id number] [place] [address] [place] CBC W Auto Differential pane l (Bld)on 07-08-2021 Basophils (Bld) [#/Vol] 0.05 10*3/uL Normal <0.11 [facility] Comment on above: Order Comment: Speci men Type: BLOOD SPECIMENOrdering Facility: [facility] Address: [address] [address] Performed By: #### 5 7021-8 ####[facility]ATORYCLIA [id number] [address] [place] Basophils/100 WBC (Bld) 0.4 % Normal [facility] Comment on above: Order Comment: Speci men Type: BLOOD SPECIMENOrdering Facility: [facility] Address: [address] [place] [address] Performed By: #### 5 7021-8 ####[facility]ATORYCLIA [id number] [address] [place] Differential cell count method Nom (Bld) Auto Normal [facility] Comment on above: Order Comment: Speci men Type: BLOOD SPECIMENOrdering Facility: [facility] Address: [address] [place] [address] Performed By: #### 5 7021-8 ####[facility]ATORYCLIA [id number] [address] [place] Eosinophils (Bld) [#/Vol] 0.68 10*3/uL High <0.46 [facility] Comment on above: Order Comment: Speci men Type: BLOOD SPECIMENOrdering Facility: [facility] Address: [address] [place] [address] Performed By: #### 5 7021-8 ####[facility]ATORYCLIA [id number] [address] Eosinophils/100 WBC (Bld) 5.4 % Normal [facility] Comment on above: Order Comment: Speci men Type: BLOOD SPECIMENOrdering Facility: [facility] Address: [address] [place] [address] Performed By: #### 5 7021-8 ####[facility]ORATORYCLIA [id number] [address] [place] Erythrocyte distribution width (RBC) [Ratio] 16.3 % High 11.5-15.0 [facility] Comment on above: Order Comment: Speci men Type: BLOOD SPECIMENOrdering Facility: [facility] Address: [address] [address] Performed By: #### 5 7021-8 ####[facility]ATORYCLIA [id number] [address] Hematocrit (Bld) [Volume fraction] 35.7 % Low 39.0-51.0 [facility] Comment on above: Order Comment: Speci men Type: BLOOD SPECIMENOrdering Facility: [facility] Address: [address] [place] [address] Performed By: #### 5 7021-8 ####[facility] LABORATORYCLIA [id number] [address] Hemoglobin (Bld) [Mass/Vol] 10.8 g/dL Low 13.0-17.0 [facility] Comment on above: Order Comment: Speci men Type: BLOOD SPECIMENOrdering Facility: [facility] Address: [address] [place] [address] Performed By: #### 5 7021-8 ####[facility] LABORATORYCLIA [id number] [address] IMMATURE GRAN % 0.4 % Normal [facility] Comment on above: Order Comment: Speci men Type: BLOOD SPECIMENOrdering Facility: [facility] Address: [address] [place] [address] Performed By: #### 5 7021-8 ####[facility] LABORATORYCLIA [id number] [address] IMMATURE GRAN ABS 0.05 k/uL Normal <0.10 [facility] Comment on above: Order Comment: Speci men Type: BLOOD SPECIMENOrdering Facility: [facility] Address: [address] [place] [address] Performed By: #### 5 7021-8 ####[facility] LABORATORYCLIA [id number] [address] OF [facility] Lymphocytes (Bld) [#/Vol] 1.85 10*3/uL Normal 1.00-4.00 [facility] Comment on above: Order Comment: Speci men Type: BLOOD SPECIMENOrdering Facility: [facility] Address: [address] [place] [address] Performed By: #### 5 7021-8 ####[facility] LABORATORYCLIA [id number] [address] Lymphocytes/100 WBC (Bld) 14.7 % Normal [facility] Comment on above: Order Comment: Speci men Type: BLOOD SPECIMENOrdering Facility: [facility] Address: [address] [place] [address] Performed By: #### 5 7021-8 ####[facility] LABORATORYCLIA [id number] [address] MCH (RBC) [Entitic mass] 27.1 pg Normal 26.0-34.0 [facility] Comment on above: Order Comment: Speci men Type: BLOOD SPECIMENOrdering Facility: [facility] Address: [address] [place] [address] Performed By: #### 5 7021-8 ####[facility] LABORATORYCLIA [id number] [address] MCHC (RBC) [Mass/Vol] 30.3 g/dL Low 30.5-36.0 [facility] Comment on above: Order Comment: Speci men Type: BLOOD SPECIMENOrdering Facility: [facility] Address: [address] [place] [address] Performed By: #### 5 7021-8 ####[facility] LABORATORYCLIA [id number] [address] MCV (RBC) [Entitic vol] 89.7 fL Normal 80.0-100.0 [facility] Comment on above: Order Comment: Speci men Type: BLOOD SPECIMENOrdering Facility: [facility] Address: [address] [place] [address] Performed By: #### 5 7021-8 ####[facility] LABORATORYCLIA [id number] [address] [place] Monocytes (Bld) [#/Vol] 0.87 10*3/uL High <0.87 [facility] Comment on above: Order Comment: Speci men Type: BLOOD SPECIMENOrdering Facility: [facility] Address: [address] [place] [address] Performed By: #### 5 7021-8 ####[facility] LABORATORYCLIA [id number] [place] [address] [place] Monocytes/100 WBC (Bld) 6.9 % Normal [facility] Comment on above: Order Comment: Speci men Type: BLOOD SPECIMENOrdering Facility: [facility] Address: [address] [place] [address] Performed By: #### 5 7021-8 ####[facility] LABORATORYCLIA [id number] [address] [place] Neutrophils (Bld) [#/Vol] 9.05 10*3/uL High 1.45-7.50 [facility] Comment on above: Order Comment: Speci men Type: BLOOD SPECIMENOrdering Facility: [facility] Address: [address] [place] [address] Performed By: #### 5 7021-8 ####[facility] LABORATORYCLIA [id number] [address] [place] Neutrophils/100 WBC (Bld) 72.2 % Normal [facility] Comment on above: Order Comment: Speci men Type: BLOOD SPECIMENOrdering Facility: [facility] Address: [address] [place] [address] Performed By: #### 5 7021-8 ####[facility] LABORATORYCLIA [id number] [place] [address] [place] Nucleated RBC (Bld) [#/Vol] 10*3/uL Normal <0.01 [facility] Comment on above: Order Comment: Speci men Type: BLOOD SPECIMENOrdering Facility: [facility] Address: [address] [place] [address] Performed By: #### 5 7021-8 ####[facility] LABORATORYCLIA [id number] [address] [place] Nucleated RBC/100 WBC (Bld) [Ratio] 0.0 /100 WBC Normal [facility] Comment on above: Order Comment: Speci men Type: BLOOD SPECIMENOrdering Facility: [facility] Address: [address] [place] [address] Performed By: #### 5 7021-8 ####[facility] LABORATORYCLIA [id number] [address] [place] Platelet mean volume (Bld) [Entitic vol] 9.9 fL Normal 9.0-12.7 [facility] Comment on above: Order Comment: Speci men Type: BLOOD SPECIMENOrdering Facility: [facility] Address: [address] [place] [address] Performed By: #### 5 7021-8 ####[facility] LABORATORYCLIA [id number] [address] [place] Platelets (Bld) [#/Vol] 335 10*3/uL Normal 150-400 [facility] Comment on above: Order Comment: Speci men Type: BLOOD SPECIMENOrdering Facility: [facility] Address: [address] [place] [address] Performed By: #### 5 7021-8 ####[facility] LABORATORYCLIA [id number] [address] [place] RBC (Bld) [#/Vol] 3.98 10*6/uL Low 4.20-6.00 [facility] Comment on above: Order Comment: Speci men Type: BLOOD SPECIMENOrdering Facility: [facility] Address: [address] [place] [address] Performed By: #### 5 7021-8 ####[facility] LABORATORYCLIA [id number] [address] [place] WBC (Bld) [#/Vol] 12.55 10*3/uL High 3.70-11.00 [facility] Comment on above: Order Comment: Speci men Type: BLOOD SPECIMENOrdering Facility: [facility] Address: [address] [place] [address] Performed By: #### 5 7021-8 ####[facility] LABORATORYCLIA [id number] [address] [place] CK CREATINE KINASEon 022 CK [Catalytic activity/Vol] 72 U/L Normal 51-298 [facility] Comment on above: Order Comment: Speci men Type: BLOOD SPECIMENOrdering Facility: [facility] Address: [address] [place] [address] Performed By: #### C K, 34397-5 ####[facility] LABORATORYCLIA [id number] [address] [place] CONSULT PROGon 07-08-2021 CONSULT PROG Normal [facility] CONSULT PROG Normal [facility] CSF MANUAL DIFFon 07-08-2021 DIF TTL, CSF 3 cells counted Normal [facility] Comment on above: Order Comment: Speci men Type: CEREBROSPINAL FLUIDOrdering Facility: [facility] Address: [address] [place] [address] Performed By: #### 3 4563-7, [id number] ####[facility] LABORATORYCLIA [id number] [place] [address] [place] LYMPH%, CSF 33 % Low 50-90 [facility] Comment on above: Order Comment: Speci men Type: CEREBROSPINAL FLUIDOrdering Facility: [facility] Address: [address] [place] [address] Performed By: #### 3 4563-7, [id number] ####[facility]ORATORYCLIA [id number] [place] [address] [place] MONO%, CSF 67 % High 10-50 [facility] Comment on above: Order Comment: Speci men Type: CEREBROSPINAL FLUIDOrdering Facility: [facility] Address: [address] [place] [address] Performed By: #### 3 4563-7, [id number] ####[facility] LABORATORYCLIA [id number] [address] [place] CT ABD/PEL W [...] Comment: Speci men Type: CEREBROSPINAL FLUIDOrdering Facility: [facility] Address: [address] [place] [address] Performed By: #### 3 4563-7, [id number] ####[facility] LABORATORYCLIA [id number] [address] [place] Clarity (Unsp spec) Clear Normal Clear [facility] Comment on above: Order Comment: Speci men Type: CEREBROSPINAL FLUIDOrdering Facility: [facility] Address: [address] [place] [address] Performed By: #### 3 4563-7, [id number] ####[facility] LABORATORYCLIA [id number] [address] [place] Color (CSF) Colorless Normal Colorless [facility] Comment on above: Order Comment: Speci men Type: CEREBROSPINAL FLUIDOrdering Facility: [facility] Address: [address] [place] [place] [address] Performed By: #### 3 4563-7, [id number] ####[facility] LABORATORYCLIA [id number] [address] OF [place] Color (Spun CSF) Colorless Normal Colorless [facility] Comment on above: Order Comment: Speci men Type: CEREBROSPINAL FLUIDOrdering Facility: [facility] Address: [facility] [place] [address] Performed By: #### 3 4563-7, [id number] ####[facility] LABORATORYCLIA [id number] [address] CSF TUBE NUMBER [employer] Normal [facility] Comment on above: Order Comment: Speci men Type: CEREBROSPINAL FLUIDOrdering Facility: [facility] Address: [address] [place] [address] Performed By: #### 3 4563-7, [id number] ####[facility]ORATORYCLIA [id number] [address] RBC Manual cnt (CSF) [#/Vol] 94 cells/uL High 0-5 [facility] Comment on above: Order Comment: Speci men Type: CEREBROSPINAL FLUIDOrdering Facility: [facility] Address: [address] [place] [address] Performed By: #### 3 4563-7, [id number] ####[facility] LABORATORYCLIA [id number] [address] WBC Manual cnt (CSF) [#/Vol] 1 cells/uL Normal 0-5 [facility] Comment on above: Order Comment: Speci men Type: CEREBROSPINAL FLUIDOrdering Facility: [facility] Address: [address] [place] [address] Performed By: #### 3 4563-7, [id number] ####[facility] LABORATORYCLIA [id number] [address] Comprehensive metabolic 2000 panelon 07-08-2021 Albumin [Mass/Vol] 3.6 g/dL Low 3.9-4.9 [facility] Comment on above: Order Comment: Speci men Type: BLOOD SPECIMENOrdering Facility: [facility] Address: [address] [place] [address] Performed By: #### C K, 62091-0 ####[facility]ORATORYCLIA [id number] [address] [place] ALP [Catalytic activity/Vol] 125 U/L High 38-113 [facility] Comment on above: Order Comment: Speci men Type: BLOOD SPECIMENOrdering Facility: [facility] Address: [address] [place] [place] [address] Performed By: #### Eileen Valdivia, 52115-2 ####[facility] LABORATORYCLIA [id number] [address] [place] ALT With P-5'-P [Catalytic activity/Vol] 24 U/L Normal 10-54 [facility] Comment on above: Order Comment: Speci men Type: BLOOD SPECIMENOrdering Facility: [facility] Address: [address] [place] [address] Performed By: #### Eileen Valdivia, 07441-1 ####[facility] LABORATORYCLIA [id number] [address] OF [facility] Anion gap [Moles/Vol] 16 mmol/L Normal 9-18 [facility] Comment on above: Order Comment: Speci men Type: BLOOD SPECIMENOrdering Facility: [facility] Address: [address] [place] [address] Performed By: #### Eileen Valdivia, 16752-4 ####[facility] LABORATORYCLIA [id number] [address] AST With P-5'-P [Catalytic activity/Vol] 21 U/L Normal 14-40 [facility] Comment on above: Order Comment: Speci men Type: BLOOD SPECIMENOrdering Facility: [facility] Address: [address] [place] [address] Performed By: #### Eileen Valdivia, 44684-3 ####[facility]ORATORYCLIA [id number] [address] [place] Bilirubin [Mass/Vol] 0.3 mg/dL Normal 0.2-1.3 [facility] Comment on above: Order Comment: Speci men Type: BLOOD SPECIMENOrdering Facility: [facility] Address: [address] [place] [address] Performed By: #### Eileen Valdivia, 18193-8 ####[facility] LABORATORYCLIA [id number] [place] [address] [place] Calcium [Mass/Vol] 8.9 mg/dL Normal 8.5-10.2 [facility] Comment on above: Order Comment: Speci men Type: BLOOD SPECIMENOrdering Facility: [facility] Address: [address] [place] [address] Performed By: #### Eileen Valdivia, 88749-6 ####[facility] LABORATORYCLIA [id number] [place] [address] [place] Chloride [Moles/Vol] 96 mmol/L Low 97-105 [facility] Comment on above: Order Comment: Speci men Type: BLOOD SPECIMENOrdering Facility: [facility] Address: [address] [place] [address] Performed By: #### Eileen Valdivia, 13410-6 ####[facility] LABORATORYCLIA [id number] [address] [place] CO2 [Moles/Vol] 27 mmol/L Normal 22-30 [facility] Comment on above: Order Comment: Speci men Type: BLOOD SPECIMENOrdering Facility: [facility] Address: [address] [place] [address] Performed By: #### Eileen Valdivia, 85659-3 ####[facility] LABORATORYCLIA [id number] [place] [address] [place] Creatinine [Mass/Vol] 0.68 mg/dL Low 0.73-1.22 [facility] Comment on above: Order Comment: Speci men Type: BLOOD SPECIMENOrdering Facility: [facility] Address: [address] [place] [address] Performed By: #### Eileen Valdivia, 07354-6 ####[facility] LABORATORYCLIA [id number] [address] ESTIMATED GLOMERULAR FILTRATION RATE 101 mL/min/1.73m??? Normal >=60 [facility] Comment on above: Order Comment: Speci men Type: BLOOD SPECIMENOrdering Facility: [facility] Address: [address] [place] [address] Result Comment: Luzmaria mated Glomerular Filtration Rate [...] actual GFR. Performed By: #### Eileen Valdivia, 66703-0 ####[facility]ORATORYCLIA [id number] [place] [address] [place] Glucose [Mass/Vol] 130 mg/dL High 74-99 [facility] Comment on above: Order Comment: Shira men Type: BLOOD SPECIMENOrdering Facility: [facility] Address: [address] [address] Result Comment: The [place] Diabetes Association (ADA) provides guidance for cutoff [...] Standards of Medical Care in Diabetes 2016, [place] Diabetes Association. Diabetes Care. 2016.39(Suppl 1). Performed By: #### Eileen Valdivia, 92845-4 ####[facility] LABORATORYCLIA [id number] [place] [address] [place] Potassium [Moles/Vol] 3.9 mmol/L Normal 3.7-5.1 [facility] Comment on above: Order Comment: Shira feldman Type: BLOOD SPECIMENOrdering Facility: [facility] Address: [address] Performed By: #### Eileen Valdivia, 46616-4 ####[facility] LABORATORYCLIA [id number] [place] [address] Protein [Mass/Vol] 7.0 g/dL Normal 6.3-8.0 [facility] Comment on above: Order Comment: Speci men Type: BLOOD SPECIMENOrdering Facility: [facility] Address: [address] [place] [address] Performed By: #### C Skip, 20835-5 ####[facility]ORATORYCLIA [id number] [address] STATES [facility] Sodium [Moles/Vol] 139 mmol/L Normal 136-144 [facility] Comment on above: Order Comment: Speci men Type: BLOOD SPECIMENOrdering Facility: [facility] Address: [address] [place] [address] Performed By: #### Eileen Valdivia, 90438-2 ####[facility] LABORATORYCLIA [id number] [address] STATES [facility] Urea nitrogen [Mass/Vol] 16 mg/dL Normal 9-24 [facility] Comment on above: Order Comment: Speci men Type: BLOOD SPECIMENOrdering Facility: [facility] Address: [address] [place] [address] Performed By: #### Eileen Valdivia, 08646-7 ####[facility]ORATORYCLIA [id number] [address] OF [facility] ED NOTEon 07-08-2021 ED NOTE HNO ID: [id number] Author: Lenora James RN Service: Emergency Medicine Author Type: Registered Nurse Type: ED Notes Filed: 07/08/2021 5:03 PM Note Text: Pt to OR with surgical team Normal [facility] ED NOTE HNO ID: [id number] Author: Lenora James RN Service: Emergency Medicine Author Type: Registered Nurse Type: ED Notes Filed: 07/08/2021 4:50 PM Note Text: OR team to get pt Normal [facility] ED NOTE HNO ID: [id number] Author: Lenora James RN Service: Emergency Medicine Author Type: Registered Nurse Type: ED Notes Filed: 07/08/2021 4:50 PM Note Text: Normal [facility] ED NOTE HNO ID: [id number] Author: Lenora James RN Service: Emergency Medicine Author Type: Registered Nurse Type: ED Notes Filed: 07/08/2021 4:50 PM Note Text: Spoke with presurg; pt to go to OR now [facility] ED NOTE HNO ID: [id number] Author: Lenora James RN Service: Emergency Medicine Author Type: Registered Nurse Type: ED Notes Filed: 07/08/2021 4:12 PM Note Text: Neurosurgery at beside [facility] ED NOTE HNO ID: [id number] Author: Lenora James RN Service: Emergency Medicine Author Type: Registered Nurse Type: ED Notes Filed: 07/08/2021 2:35 PM Note Text: respiratory aware of pt breathing treatments [facility] ED NOTE HNO ID: [id number] Author: Lisa Woo RN Service: ? Author Type: Registered Nurse Type: ED Notes Filed: 07/08/2021 2:20 PM Note Text: Xray notified pt is ready. [facility] ED NOTE HNO ID: [id number] Author: Lenora James RN Service: Emergency Medicine Author Type: Registered Nurse Type: ED Notes Filed: 07/08/2021 12:14 PM Note Text: CT notified regarding imaging orders placed [facility] ED NOTE Normal [facility] ED PROV NOTEon 07-08-2021 ED PROV NOTE Normal [facility] Glucose CSF-mCncon 2 Glucose (CSF) [Mass/Vol] 88 mg/dL High 40-70 [facility] Comment on above: Order Comment: Speci men Type: CEREBROSPINAL FLUIDOrdering Facility: [facility] Address: [address] [place] [address] Result Comment: Lumb ar CSF glucose values of healthy patients are approximately 60% of the plasma values and must always be compared with a concurrently measured plasma value for adequate clinical interpretation.References: 1. Glucose HK (GLUC3) [package insert V 12.0 [place]]. [employer], [place], [place]. September 2015. 2. Michelle Moore, Michelle Manjarrez (2015). Chapter 7: Glucose and Lactate. Marianela Alcocer al.(eds.), Cerebrospinal Fluid in Clinical Neurology. [place]: [employer]. Performed By: #### 2 880-3, 2342-4 ####[facility] LABORATORYCLIA [id number] [address] HIGH SENSITIVITY TROPONIN To n 07-08-2021 HIGH SENSITIVITY TAMIKO 27 ng/L High <12 [facility] Comment on above: Order Comment: Speci men Type: BLOOD SPECIMENOrdering Facility: [facility] Address: [address] [place] [address] Result Comment: When assessing risk for acute [...] H STNT ####[facility] LABORATORYIA [id number] [address] HIGH SENSITIVITY TAMIKO 36 ng/L High <12 [facility] Comment on above: Order Comment: Shira feldman Type: BLOOD SPECIMENOrdering Facility: [facility] Address: [address] [place] [address] Result Comment: When assessing risk for acute [...] H STNT ####[facility] LABORATORYIA [id number] [address] STATES OF [facility] HISTORY PHYSICALon HISTORY PHYSICAL Normal [facility] NURSING PROGon 07-08-2021 NURSING PROG Normal [facility] OPERATIVE NOon 07-08-2021 OPERATIVE NO Normal [facility] Prot CSF-mCncon 07-08-2021 Protein (CSF) [Mass/Vol] 33 mg/dL Normal 15-45 [facility] Comment on above: Order Comment: Speci men Type: CEREBROSPINAL FLUIDOrdering Facility: [facility] Address: [address] [place] [address] Performed By: #### 2 880-3, 2342-4 ####[facility] LABORATORYCLIA [id number] [address] [place] SARS-CoV-2 RNA Resp Ql MEGAN+p robeon 07-08-2021 SARS-CoV-2 (COVID-19) RNA MEGAN+probe Ql (Resp) COVID 19 RESULT: SARS-CoV-2 (Agent of COVID-19) Not Detected by RT-PCR or equivalent method. This test has been authorized by FDA under an Emergency Use Authorization (EUA). Normal [facility] Comment on above: Performed By: #### 9 4500-6 ####[facility] LABORATORYCLIA [id number] [address] [place] STAPH AUREUS PCRon 2 S. aureus and MRSA panel MEGAN+probe (Nose) Normal Negative [facility] Comment on above: Order Comment: Speci men Type: SWAB OF INTERNAL NOSEOrdering Facility: [facility] Address: [address] [place] [address] Result Comment: Nega tive for Staphylococcus aureus by PCR.Negative for MRSA by PCR Performed By: #### S APCR ####[facility] LABORATORYCLIA [id number] [place] [address] [place] Urinalysis complete panel (U )on 07-08-2021 Bacteria LM.HPF (Urine sed) [#/Area] Few Abnormal None Seen [facility] Comment on above: Order Comment: Speci men Type: URINE SPECIMENOrdering Facility: [facility] Address: [address] [place] [address] Performed By: #### 2 4356-8 ####[facility] LABORATORYCLIA [id number] [facility] [address] Bilirubin Ql (U) Negative Normal Negative [facility] Comment on above: Order Comment: Speci men Type: URINE SPECIMENOrdering Facility: [facility] Address: [address] [place] [address] Performed By: #### 2 4356-8 ####[facility] LABORATORYCLIA [id number] [address] Clarity (Unsp spec) Turbid Abnormal Clear [facility] Comment on above: Order Comment: Speci men Type: URINE SPECIMENOrdering Facility: [facility] Address: [address] [place] [address] Performed By: #### 2 4356-8 ####[facility] LABORATORYCLIA [id number] [address] Color (U) Light Yellow Normal yellow [facility] Comment on above: Order Comment: Speci men Type: URINE SPECIMENOrdering Facility: [facility] Address: [address] [place] [address] Performed By: #### 2 4356-8 ####[facility] LABORATORYCLIA [id number] [address] Glucose Test strip (U) [Mass/Vol] Negative Normal Negative [facility] Comment on above: Order Comment: Speci men Type: URINE SPECIMENOrdering Facility: [facility] [facility] Address: [address] [place] [address] Performed By: #### 2 4356-8 ####[facility] LABORATORYCLIA [id number] [address] STATES [facility] Hemoglobin Ql (U) Negative Normal Negative [facility] Comment on above: Order Comment: Speci men Type: URINE SPECIMENOrdering Facility: [facility] Address: [address] [place] [address] Performed By: #### 2 4356-8 ####[facility] LABORATORYCLIA [id number] [address] [place] Hyaline casts (Urine sed) [#/Area] 1-3 /LPF Abnormal 0 /LPF [facility] Comment on above: Order Comment: Speci men Type: URINE SPECIMENOrdering Facility: [facility] Address: [address] [place] [address] Performed By: #### 2 4356-8 ####[facility]ORATORYCLIA [id number] [address] [place] [facility] Ketones Ql (U) Negative Normal Negative [facility] Comment on above: Order Comment: Speci men Type: URINE SPECIMENOrdering Facility: [facility] Address: [address] [place] [address] Performed By: #### 2 4356-8 ####[facility] LABORATORYCLIA [id number] [address] Leukocyte esterase Test strip Ql (U) Negative Normal Negative [facility] Comment on above: Order Comment: Speci men Type: URINE SPECIMENOrdering Facility: [facility] Address: [address] [place] [address] Performed By: #### 2 4356-8 ####[facility] LABORATORYCLIA [id number] [address] [place] [facility] Nitrite Ql (U) Negative Normal Negative [facility] Comment on above: Order Comment: Speci men Type: URINE SPECIMENOrdering Facility: [facility] Address: [address] [place] [address] Performed By: #### 2 4356-8 ####[facility]ORATORYCLIA [id number] [address] [place] pH (U) 5.0 [pH] Normal 5.0-8.0 [facility] Comment on above: Order Comment: Speci men Type: URINE SPECIMENOrdering Facility: [facility] Address: [address] [place] [address] Performed By: #### 2 4356-8 ####[facility]ORATORYCLIA [id number] [address] [place] Protein (U) [Mass/Vol] Negative Normal Negative [facility] Comment on above: Order Comment: Speci men Type: URINE SPECIMENOrdering Facility: [facility] Address: [address] [place] [address] Performed By: #### 2 4356-8 ####[facility] LABORATORYCLIA [id number] [address] [place] [facility] RBC LM.HPF (Urine sed) [#/Area] 11-25 /HPF Abnormal 0-3 /HPF [facility] Comment on above: Order Comment: Speci men Type: URINE SPECIMENOrdering Facility: [facility] Address: [address] [place] [address] Performed By: #### 2 4356-8 ####[facility]ITALCL[facility] [id number] [address] Specific gravity (U) [Rel density] 1.018 Normal 1.005-1.030 [facility] Comment on above: Order Comment: Speci men Type: URINE SPECIMENOrdering Facility: [facility] Address: [address] [place] [address] Performed By: #### 2 4356-8 ####[facility] LABORATORYCLIA [id number] [address] Urobilinogen Ql (U) Normal Normal Negative [facility] Comment on above: Order Comment: Speci men Type: URINE SPECIMENOrdering Facility: [facility] Address: [address] [place] [address] Performed By: #### 2 4356-8 ####[facility] LABORATORYCLIA [id number] [address] WBC LM.HPF (Urine sed) [#/Area] /[HPF] Abnormal 0-5 /HPF [facility] Comment on above: Order Comment: Speci men Type: URINE SPECIMENOrdering Facility: [facility] Address: [address] [place] [address] Performed By: #### 2 4356-8 ####[facility] LABORATORYCLIA [id number] [place] [address] [facility] Vancomycin random [Mass/Vol] on 07-08-2021 Vancomycin [Mass/Vol] 31.0 ug/mL High 10.0-20.0 [facility] Comment on above: Order Comment: Speci men Type: BLOOD SPECIMENOrdering Facility: [facility] Address: [facility] [place] [id number] Result Comment: Refe rence ranges and high/low indicator flags are provided as general guidelines only. The treating physician must determine appropriate target levels/dosing based on the specific clinical situation. Performed By: #### 4 091-5 ####[facility]ORATORYCLIA [id number] [address] XR ABD 2V SUPINE W UPR/DECUB [...] Center HISTORY PHYSICALon HISTORY PHYSICAL HNO ID: [id number] Author: Amy Beltran MD Service: ? Author Type: Physician Type: HANDP Filed: 06/30/2021 6:42 PM Note Text: Connected Care Unit History and Physical Facility: [facility] Level of Care: Skilled Admission Date: June [...] regarding the above plan. Total time spent [id number] and/or counseling and coordinating care on the skilled care unit for patient was approximately 45 minutes SUBJECTIVE (HISTORY) Chief Complaint: Confusion, infection, blood clot. Andrew Sifuentes is being seen today for detention facility (SNF) admission AND management of weakness, tube feed, infected retroperitoneal infection and seizure. HPI: This is a 71 year old male who presents from [facility] with primary admitting diagnosis of Seizure, [...] CT brain concerning for hydrocephalus. Tip of [employer] shunt was found to be in the [...] Code Status: (more content not included)... Normal [facility] Basic metabolic 2000 panelon 06-28-2021 Anion gap [Moles/Vol] 7 mmol/L Low 9-18 Ak[facility] on [facility] Comment on above: Order Comment: Speci men Type: BLOOD SPECIMENOrdering Facility: [facility] Address: [address] Performed By: #### 2 4320-2, ####[facility] LABORATORYCLIA [id number] [place] [address] [place] Calcium [Mass/Vol] 8.8 mg/dL Normal 8.5-10.2 [facility] Comment on above: Order Comment: Speci men Type: BLOOD SPECIMENOrdering Facility: [facility] Address: [address] [place] [address] Performed By: #### 2 4320-06, ####[facility] LABORATORYCLIA [id number] [place] [address] [place] Chloride [Moles/Vol] 103 mmol/L Normal 97-105 [facility] Comment on above: Order Comment: Speci men Type: BLOOD SPECIMENOrdering Facility: [facility] Address: [address] [place] [address] Performed By: #### 2 4320-06, ####[facility] LABORATORYCLIA [id number] [place] [address] [place] CO2 [Moles/Vol] 28 mmol/L Normal 22-30 [facility] Comment on above: Order Comment: Speci men Type: BLOOD SPECIMENOrdering Facility: [facility] Address: [address] [place] [address] Performed By: #### 2 4320-06, ####[facility] LABORATORYCLIA [id number] [place] [address] [place] Creatinine [Mass/Vol] 0.57 mg/dL Low 0.73-1.22 [facility] Comment on above: Order Comment: Speci men Type: BLOOD SPECIMENOrdering Facility: [facility] Address: [address] [place] [address] Performed By: #### 2 2, ####[facility] LABORATORYCLIA [id number] [place] [address] [place] GFR/1.73 sq M.predicted MDRD (S/P/Bld) [Vol rate/Area] mL/min/{1.73_m2} Normal [facility] Comment on above: Order Comment: Shira feldman Type: BLOOD SPECIMENOrdering Facility: [facility] Address: [address] [id number] Result Comment: >60e GFR (Estimated GFR) Units [...] actual GFR. Performed By: #### 2 4321-2, 14672-2 ####[facility] LABORATORYCLIA [id number] [address] OF [facility] Glucose [Mass/Vol] 120 mg/dL High 74-99 [facility] Comment on above: Order Comment: Shira feldman Type: BLOOD SPECIMENOrdering Facility: [facility] Address: [address] [place], [place] [id number] Result Comment: The [place] Diabetes Association (ADA) provides guidance for cutoff [...] Standards of Medical Care in Diabetes 2016, [place] [employer]. Diabetes Care. 2016.39(Suppl 1). Performed By: #### 2 4321-2, 14155-1 ####[facility] LABORATORYCLIA [id number] [address] [place] Potassium [Moles/Vol] 3.8 mmol/L Normal 3.7-5.1 [facility] Comment on above: Order Comment: Speci men Type: BLOOD SPECIMENOrdering Facility: [facility] Address: [address] [place] [address] Performed By: #### 2 4321-2, ####[facility] LABORATORYCLIA [id number] [address] [place] Sodium [Moles/Vol] 138 mmol/L Normal 136-144 [facility] Comment on above: Order Comment: Speci men Type: BLOOD SPECIMENOrdering Facility: [facility] Address: [address] [place] [address] Performed By: #### 2 4321-2, ####[facility] LABORATORYCLIA [id number] [address] STATES OF [facility] Urea nitrogen [Mass/Vol] 24 mg/dL Normal 9-24 [facility] Comment on above: Order Comment: Speci men Type: BLOOD SPECIMENOrdering Facility: [facility] Address: [address] [place] [address] Performed By: #### 2 4321-2, ####[facility] LABORATORYCLIA [id number] [address] [place] CASE MANAGEMon 06-28-2021 CASE MANAGEM Normal [facility] CBC panel Auto (Bld)on 06-28 Erythrocyte distribution width (RBC) [Ratio] 15.6 % High 11.5-15.0 [facility] Comment on above: Order Comment: Speci men Type: BLOOD SPECIMENOrdering Facility: [facility] Address: [address] [place] [address] Performed By: #### 5 8410-2 ####[facility] LABORATORYCLIA [id number] [address] [place] Hematocrit (Bld) [Volume fraction] 30.5 % Low 39.0-51.0 [facility] Comment on above: Order Comment: Speci men Type: BLOOD SPECIMENOrdering Facility: [facility] Address: [address] [place] [address] Performed By: #### 5 8410-2 ####[facility] LABORATORYCLIA [id number] [address] STATES OF [facility] Hemoglobin (Bld) [Mass/Vol] 9.4 g/dL Low 13.0-17.0 [facility] Comment on above: Order Comment: Speci men Type: BLOOD SPECIMENOrdering Facility: [facility] Address: [address] [place] [address] Performed By: #### 5 8410-2 ####[facility] LABORATORYCLIA [id number] [address] STATES OF [facility] MCH (RBC) [Entitic mass] 27.8 pg Normal 26.0-34.0 [facility] Comment on above: Order Comment: Speci men Type: BLOOD SPECIMENOrdering Facility: [facility] Address: [address] [place] [address] Performed By: #### 5 8410-2 ####[facility] LABORATORYCLIA [id number] [address] MCHC (RBC) [Mass/Vol] 30.8 g/dL Normal 30.5-36.0 [facility] Comment on above: Order Comment: Speci men Type: BLOOD SPECIMENOrdering Facility: [facility] Address: [address] [place] [address] Performed By: #### 5 8410-2 ####[facility] LABORATORYCLIA [id number] [address] [place] MCV (RBC) [Entitic vol] 90.2 fL Normal 80.0-100.0 [facility] Comment on above: Order Comment: Speci men Type: BLOOD SPECIMENOrdering Facility: [facility] Address: [address] [place] [address] Performed By: #### 5 8410-2 ####[facility] LABORATORYCLIA [id number] [address] [place] Nucleated RBC (Bld) [#/Vol] 10*3/uL Normal <0.01 [facility] Comment on above: Order Comment: Speci men Type: BLOOD SPECIMENOrdering Facility: [facility] Address: [address] [place] [address] Performed By: #### 5 8410-2 ####[facility] LABORATORYCLIA [id number] [address] [place] Platelet mean volume (Bld) [Entitic vol] 9.9 fL Normal 9.0-12.7 [facility] Comment on above: Order Comment: Speci men Type: BLOOD SPECIMENOrdering Facility: [facility] Address: [address] [place] [address] Performed By: #### 5 8410-2 ####[facility] LABORATORYCLIA [id number] [address] [place] Platelets (Bld) [#/Vol] 333 10*3/uL Normal 150-400 [facility] Comment on above: Order Comment: Speci men Type: BLOOD SPECIMENOrdering Facility: [facility] Address: [address] [place] [address] Performed By: #### 5 8410-2 ####[facility] LABORATORYCLIA [id number] [address] [place] RBC (Bld) [#/Vol] 3.38 10*6/uL Low 4.20-6.00 [facility] Comment on above: Order Comment: Speci men Type: BLOOD SPECIMENOrdering Facility: [facility] Address: [address] [place] [address] Performed By: #### 5 8410-2 ####[facility] LABORATORYCLIA [id number] [address] [place] WBC (Bld) [#/Vol] 9.71 10*3/uL Normal 3.70-11.00 [facility] Comment on above: Order Comment: Speci men Type: BLOOD SPECIMENOrdering Facility: [facility] Address: [address] [place] [address] Performed By: #### 5 8410-2 ####[facility]ORATORYCLIA [id number] [address] CNDSon 06-28-2021 CNDS Normal [facility] CONSULT PROGon 06-28-2021 CONSULT PROG Normal [facility] Magnesium SerPl-mCncon 06-28 Magnesium [Mass/Vol] 2.2 mg/dL Normal 1.7-2.3 [facility] Comment on above: Order Comment: Speci men Type: BLOOD SPECIMENOrdering Facility: [facility] Address: [address] [place] [address] Performed By: #### 2 4321-2, ####[facility]ORATORYCLIA [id number] [address] Vancomycin random [Mass/Vol] on 06-28-2021 Vancomycin [Mass/Vol] 23.0 ug/mL High 10.0-20.0 [facility] Comment on above: Order Comment: Speci men Type: BLOOD SPECIMENOrdering Facility: [facility] Address: [address] [place] [address] Result Comment: Refe rence ranges and high/low indicator flags are provided as general guidelines only. The treating physician must determine appropriate target levels/dosing based on the specific clinical situation. Performed By: #### 4 091-5 ####[facility]ORATORYCLIA [id number] [address] [place] ALLIED HEALTHon 06-27-2021 ALLIED HEALTH Normal [facility] Basic metabolic 2000 panelon 06-27-2021 Anion gap [Moles/Vol] 10 mmol/L Normal 9-18 [facility] Comment on above: Order Comment: Speci men Type: BLOOD SPECIMENOrdering Facility: [facility] Address: [address] [place] [address] Performed By: #### 2 4320-2, ####[facility] LABORATORYCLIA [id number] [place] [address] [place] Calcium [Mass/Vol] 8.8 mg/dL Normal 8.5-10.2 [facility] Comment on above: Order Comment: Speci men Type: BLOOD SPECIMENOrdering Facility: [facility] Address: [address] [place] [address] Performed By: #### 2 2, ####[facility] LABORATORYCLIA [id number] [place] [address] [place] Chloride [Moles/Vol] 104 mmol/L Normal 97-105 [facility] Comment on above: Order Comment: Speci men Type: BLOOD SPECIMENOrdering Facility: [facility] Address: [address] [place] [address] Performed By: #### 2 4320-06, ####[facility] LABORATORYCLIA [id number] [address] [place] CO2 [Moles/Vol] 26 mmol/L Normal 22-30 [facility] Comment on above: Order Comment: Speci men Type: BLOOD SPECIMENOrdering Facility: [facility] Address: [address] [place] [address] Performed By: #### 2 4320-06, ####[facility]ORATORYCLIA [id number] [place] [address] [place] Creatinine [Mass/Vol] 0.57 mg/dL Low 0.73-1.22 [facility] Comment on above: Order Comment: Speci men Type: BLOOD SPECIMENOrdering Facility: [facility] Address: [address] [place] [address] Performed By: #### 2 2, ####[facility]ORATORYCLIA [id number] [place] [address] [place] GFR/1.73 sq M.predicted MDRD (S/P/Bld) [Vol rate/Area] mL/min/{1.73_m2} Normal [facility] Comment on above: Order Comment: Shira feldman Type: BLOOD SPECIMENOrdering Facility: [facility] Address: [address] [phone] Result Comment: >60e GFR (Estimated GFR) Units [...] actual GFR. Performed By: #### 2 4321-2, 11971-0 ####[facility]ORATORYCLIA [id number] [place] [address] [place] Glucose [Mass/Vol] 133 mg/dL High 74-99 [facility] Comment on above: Order Comment: Shira feldman Type: BLOOD SPECIMENOrdering Facility: [facility] Address: [address] [place] [address] Result Comment: The [place] Diabetes Association (ADA) provides guidance for cutoff [...] Standards of Medical Care in Diabetes 2016, [place] Diabetes Association. Diabetes Care. 2016.39(Suppl 1). Performed By: #### 2 4321-2, 10477-8 ####[facility] LABORATORYCLIA [id number] [place] [address] [place] Potassium [Moles/Vol] 4.2 mmol/L Normal 3.7-5.1 [facility] Comment on above: Order Comment: Speci men Type: BLOOD SPECIMENOrdering Facility: [facility] Address: [address] [place] [address] Performed By: #### 2 4321-2, ####[facility] LABORATORYCLIA [id number] [address] STATES [facility] Sodium [Moles/Vol] 140 mmol/L Normal 136-144 [facility] Comment on above: Order Comment: Speci men Type: BLOOD SPECIMENOrdering Facility: [facility] Address: [address] [place] [address] Performed By: #### 2 4321-2, ####[facility] LABORATORYCLIA [id number] [address] STATES OF [facility] Urea nitrogen [Mass/Vol] 24 mg/dL Normal 9-24 [facility] Comment on above: Order Comment: Speci men Type: BLOOD SPECIMENOrdering Facility: [facility] Address: [address] [place] [address] Performed By: #### 2 4321-2, ####[facility]ORATORYCLIA [id number] [address] CASE MANAGEMon 06-27-2021 CASE MANAGEM Normal [facility] CBC panel Auto (Bld)on 06-27 Erythrocyte distribution width (RBC) [Ratio] 15.8 % High 11.5-15.0 [facility] Comment on above: Order Comment: Speci men Type: BLOOD SPECIMENOrdering Facility: [facility] Address: [address] [place] [address] Performed By: #### 5 8410-2 ####[facility] LABORATORYCLIA [id number] [address] Hematocrit (Bld) [Volume fraction] 31.4 % Low 39.0-51.0 [facility] Comment on above: Order Comment: Speci men Type: BLOOD SPECIMENOrdering Facility: [facility] Address: [address] [place] [address] Performed By: #### 5 8410-2 ####[facility]ORATORYCLIA [id number] [address] Hemoglobin (Bld) [Mass/Vol] 9.3 g/dL Low 13.0-17.0 [facility] Comment on above: Order Comment: Speci men Type: BLOOD SPECIMENOrdering Facility: [facility] Address: [address] [place] [address] Performed By: #### 5 8410-2 ####[facility] LABORATORYCLIA [id number] [address] MCH (RBC) [Entitic mass] 27.0 pg Normal 26.0-34.0 [facility] Comment on above: Order Comment: Speci men Type: BLOOD SPECIMENOrdering Facility: [facility] Address: [address] [place] [address] Performed By: #### 5 8410-2 ####[facility]ORATORYCLIA [id number] [address] MCHC (RBC) [Mass/Vol] 29.6 g/dL Low 30.5-36.0 [facility] Comment on above: Order Comment: Speci men Type: BLOOD SPECIMENOrdering Facility: [facility] Address: [address] [place] [address] Performed By: #### 5 8410-2 ####[facility] LABORATORYCLIA [id number] [address] STATES [facility] MCV (RBC) [Entitic vol] 91.3 fL Normal 80.0-100.0 [facility] Comment on above: Order Comment: Speci men Type: BLOOD SPECIMENOrdering Facility: [facility] Address: [address] [place] [address] Performed By: #### 5 8410-2 ####[facility]ORATORYCLIA [id number] [address] Nucleated RBC (Bld) [#/Vol] 10*3/uL Normal <0.01 [facility] Comment on above: Order Comment: Speci men Type: BLOOD SPECIMENOrdering Facility: [facility] Address: [address] [place] [address] Performed By: #### 5 8410-2 ####[facility] LABORATORYCLIA [id number] [place] [address] [place] Platelet mean volume (Bld) [Entitic vol] 10.3 fL Normal 9.0-12.7 [facility] Comment on above: Order Comment: Speci men Type: BLOOD SPECIMENOrdering Facility: [facility] Address: [address] [place] [address] Performed By: #### 5 8410-2 ####[facility]ORATORYCLIA [id number] [address] [place] Platelets (Bld) [#/Vol] 359 10*3/uL Normal 150-400 [facility] Comment on above: Order Comment: Speci men Type: BLOOD SPECIMENOrdering Facility: [facility] Address: [address] [place] [address] Performed By: #### 5 8410-2 ####[facility] LABORATORYCLIA [id number] [place] [address] [place] RBC (Bld) [#/Vol] 3.44 10*6/uL Low 4.20-6.00 [facility] Comment on above: Order Comment: Speci men Type: BLOOD SPECIMENOrdering Facility: [facility] Address: [address] [place] [address] Performed By: #### 5 8410-2 ####[facility] LABORATORYCLIA [id number] [place] [address] [place] WBC (Bld) [#/Vol] 10.73 10*3/uL Normal 3.70-11.00 [facility] Comment on above: Order Comment: Speci men Type: BLOOD SPECIMENOrdering Facility: [facility] Address: [address] [place] [address] Performed By: #### 5 8410-2 ####[facility] LABORATORYCLIA [id number] [place] [address] [place] Magnesium [facility] Magnesium [Mass/Vol] 2.2 mg/dL Normal 1.7-2.3 [facility] Comment on above: Order Comment: Speci men Type: BLOOD SPECIMENOrdering Facility: [facility] Address: [address] [place] [address] Performed By: #### 2 4321-2, 97498-3 ####[facility] LABORATORYCLIA [id number] [address] [place] NT-proBNP [facility] Natriuretic peptide.B prohormone N-Terminal [Mass/Vol] 184 pg/mL High <125 [facility] Comment on above: Order Comment: Speci men Type: BLOOD SPECIMENOrdering Facility: [facility] Address: [address] [place] [address] Performed By: #### 3 3762-6 ####[facility] LABORATORYCLIA [id number] [place] [address] [place] [...] Comment: Speci men Type: BLOOD SPECIMENOrdering Facility: [facility] Address: [address] [place] [address] Performed By: #### 1 9123-9, 00883-7 ####[facility] LABORATORYCLIA [id number] [address] [place] Calcium [Mass/Vol] 8.7 mg/dL Normal 8.5-10.2 [facility] Comment on above: Order Comment: Speci men Type: BLOOD SPECIMENOrdering Facility: [facility] Address: [address] [place] [address] Performed By: #### 1 9123-9, 87575-0 ####[facility] LABORATORYCLIA [id number] [place] [address] [place] Chloride [Moles/Vol] 105 mmol/L Normal 97-105 [facility] Comment on above: Order Comment: Speci men Type: BLOOD SPECIMENOrdering Facility: [facility] Address: [address] [place] [address] Performed By: #### 1 9123-9, 86820-9 ####[facility] LABORATORYCLIA [id number] [place] [address] [place] CO2 [Moles/Vol] 26 mmol/L Normal 22-30 [facility] Comment on above: Order Comment: Speci men Type: BLOOD SPECIMENOrdering Facility: [facility] Address: [address] [place] [address] Performed By: #### 1 9123-9, 67280-0 ####[facility] LABORATORYCLIA [id number] [place] [address] [place] Creatinine [Mass/Vol] 0.56 mg/dL Low 0.73-1.22 [facility] Comment on above: Order Comment: Speci men Type: BLOOD SPECIMENOrdering Facility: [facility] Address: [address] [place] [address] Performed By: #### 1 9123-9, 21736-7 ####[facility] LABORATORYCLIA [id number] [place] [address] [place] GFR/1.73 sq M.predicted MDRD (S/P/Bld) [Vol rate/Area] mL/min/{1.73_m2} Normal [facility] Comment on above: Order Comment: Speci men Type: BLOOD SPECIMENOrdering Facility: [facility] Address: [address] [place] [place] [phone] Result Comment: >60e GFR (Estimated GFR) Units [...] actual GFR. Performed By: #### 1 9123-9, 40663-5 ####[facility]PITALCLIA [id number] [place] [address] [place] Glucose [Mass/Vol] 134 mg/dL High 74-99 [facility] Comment on above: Order Comment: Shira feldman Type: BLOOD SPECIMENOrdering Facility: [facility] Address: [address] [place] [address] Result Comment: The [place] Diabetes Association (ADA) provides guidance for cutoff [...] Standards of Medical Care in Diabetes 2016, [place] Diabetes [employer]. Diabetes Care. 2016.39(Suppl 1). Performed By: #### 1 9123-9, 26141-7 ####[facility] LABORATORYCLIA [id number] [place] [address] [place] Potassium [Moles/Vol] 3.8 mmol/L Normal 3.7-5.1 [facility] Comment on above: Order Comment: Shira feldman Type: BLOOD SPECIMENOrdering Facility: [facility] Address: [address] [place] [address] Performed By: #### 1 9123-9, 38912-2 ####[facility] LABORATORYCLIA [id number] [address] Sodium [Moles/Vol] 140 mmol/L Normal 136-144 [facility] Comment on above: Order Comment: Speci men Type: BLOOD SPECIMENOrdering Facility: [facility] Address: [address] [place] [address] Performed By: #### 1 9123-9, 40048-2 ####[facility] LABORATORYCLIA [id number] [address] [place] Urea nitrogen [Mass/Vol] 24 mg/dL Normal 9-24 [facility] Comment on above: Order Comment: Speci men Type: BLOOD SPECIMENOrdering Facility: [facility] Address: [address] [place] [address] Performed By: #### 1 91239, 35845-8 ####[facility] LABORATORYCLIA [id number] [address] STATES [facility] CBC panel Auto (Bld)on 06-26 Erythrocyte distribution width (RBC) [Ratio] 15.9 % High 11.5-15.0 [facility] Comment on above: Order Comment: Speci men Type: BLOOD SPECIMENOrdering Facility: [facility] Address: [address] [place] [address] Performed By: #### 5 8410-2 ####[facility] LABORATORYCLIA [id number] [address] Hematocrit (Bld) [Volume fraction] 29.8 % Low 39.0-51.0 [facility] Comment on above: Order Comment: Speci men Type: BLOOD SPECIMENOrdering Facility: [facility] Address: [address] [place] [address] Performed By: #### 5 8410-2 ####[facility] LABORATORYCLIA [id number] [place] [address] [place] Hemoglobin (Bld) [Mass/Vol] 9.1 g/dL Low 13.0-17.0 [facility] Comment on above: Order Comment: Speci men Type: BLOOD SPECIMENOrdering Facility: [facility] Address: [address] [place] [address] Performed By: #### 5 8410-2 ####[facility] LABORATORYCLIA [id number] [address] MCH (RBC) [Entitic mass] 27.8 pg Normal 26.0-34.0 [facility] Comment on above: Order Comment: Speci men Type: BLOOD SPECIMENOrdering Facility: [facility] Address: [address] [place] [address] Performed By: #### 5 8410-2 ####[facility] LABORATORYCLIA [id number] [address] OF [facility] MCHC (RBC) [Mass/Vol] 30.5 g/dL Normal 30.5-36.0 [facility] Comment on above: Order Comment: Speci men Type: BLOOD SPECIMENOrdering Facility: [facility] Address: [address] [place] [address] Performed By: #### 5 8410-2 ####[facility] LABORATORYCLIA [id number] [address] MCV (RBC) [Entitic vol] 91.1 fL Normal 80.0-100.0 [facility] Comment on above: Order Comment: Speci men Type: BLOOD SPECIMENOrdering Facility: [facility] Address: [address] [place] [address] Performed By: #### 5 8410-2 ####[facility] LABORATORYCLIA [id number] [address] Nucleated RBC (Bld) [#/Vol] 10*3/uL Normal <0.01 [facility] Comment on above: Order Comment: Speci men Type: BLOOD SPECIMENOrdering Facility: [facility] Address: [address] [place] [address] Performed By: #### 5 8410-2 ####[facility] LABORATORYCLIA [id number] [address] Platelet mean volume (Bld) [Entitic vol] 10.3 fL Normal 9.0-12.7 [facility] Comment on above: Order Comment: Speci men Type: BLOOD SPECIMENOrdering Facility: [facility] Address: [address] [place] [address] Performed By: #### 5 8410-2 ####[facility] LABORATORYCLIA [id number] [address] [place] Platelets (Bld) [#/Vol] 336 10*3/uL Normal 150-400 [facility] Comment on above: Order Comment: Speci men Type: BLOOD SPECIMENOrdering Facility: [facility] Address: [address] [place] [address] Performed By: #### 5 8410-2 ####[facility] LABORATORYCLIA [id number] [address] [place] RBC (Bld) [#/Vol] 3.27 10*6/uL Low 4.20-6.00 [facility] Comment on above: Order Comment: Speci men Type: BLOOD SPECIMENOrdering Facility: [facility] Address: [address] [place] [address] Performed By: #### 5 8410-2 ####[facility] LABORATORYCLIA [id number] [address] [place] WBC (Bld) [#/Vol] 9.14 10*3/uL Normal 3.70-11.00 [facility] Comment on above: Order Comment: Speci men Type: BLOOD SPECIMENOrdering Facility: [facility] Address: [address] [place] [address] Performed By: #### 5 8410-2 ####[facility] LABORATORYCLIA [id number] [address] OF [facility] CONSULT PROGon 06-26-2021 CONSULT PROG Normal [facility] Magnesium SerPl-mCncon 06-26 Magnesium [Mass/Vol] 2.2 mg/dL Normal 1.7-2.3 [facility] Comment on above: Order Comment: Speci men Type: BLOOD SPECIMENOrdering Facility: [facility] Address: [address] [place] [address] Performed By: #### 1 9123-9, 63722-9 ####[facility] LABORATORYCLIA [id number] [address] OF [facility] NURSING PROGon 06-26-2021 NURSING PROG Normal [facility] NURSING PROG Normal [facility] Basic metabolic 2000 panelon 06-25-2021 Anion gap [Moles/Vol] 8 mmol/L Low 9-18 [facility] Comment on above: Order Comment: Speci men Type: BLOOD SPECIMENOrdering Facility: [facility] Address: [address] [place] [address] Performed By: #### 2 432-2, ####[facility] LABORATORYCLIA [id number] [place] [address] [place] Calcium [Mass/Vol] 8.8 mg/dL Normal 8.5-10.2 [facility] Comment on above: Order Comment: Speci men Type: BLOOD SPECIMENOrdering Facility: [facility] Address: [address] [place] [address] Performed By: #### 2 432-2, ####[facility] LABORATORYCLIA [id number] [place] [address] [place] Chloride [Moles/Vol] 105 mmol/L Normal 97-105 [facility] Comment on above: Order Comment: Speci men Type: BLOOD SPECIMENOrdering Facility: [facility] Address: [address] [place] [address] Performed By: #### 2 432-2, ####[facility] LABORATORYCLIA [id number] [place] [address] [place] CO2 [Moles/Vol] 27 mmol/L Normal 22-30 [facility] Comment on above: Order Comment: Speci men Type: BLOOD SPECIMENOrdering Facility: [facility] Address: [address] [place] [address] Performed By: #### 2 432-, ####[facility] LABORATORYCLIA [id number] [place] [id number] [place] Creatinine [Mass/Vol] 0.59 mg/dL Low 0.73-1.22 [facility] Comment on above: Order Comment: Speci men Type: BLOOD SPECIMENOrdering Facility: [facility] Address: [address] [place] [address] Performed By: #### 2 43205-08, ####[facility] LABORATORYCLIA [id number] [address] [place] GFR/1.73 sq M.predicted MDRD (S/P/Bld) [Vol rate/Area] mL/min/{1.73_m2} Normal [facility] Comment on above: Order Comment: Speci men Type: BLOOD SPECIMENOrdering Facility: [facility] Address: [address] [place] [address] Result Comment: >60e GFR (Estimated GFR) Units [...] 43205-08, ####[facility] LABORATORYCLIA [id number] [place] [address] [place] Glucose [Mass/Vol] 132 mg/dL High 74-99 [facility] Comment on above: Order Comment: Speci men Type: BLOOD SPECIMENOrdering Facility: [facility] Address: [address] [place], [place] [phone] Result Comment: The [place] Diabetes Association (ADA) provides guidance for cutoff [...] Standards of Medical Care in Diabetes 2016, [place] Diabetes Association. Diabetes Care. 2016.39(Suppl 1). Performed By: #### 2 4320-06, ####[employer] [facility] ProductsSUMMERS [facility] LABORATORYCLIA [id number] [place] [address] [place] Potassium [Moles/Vol] 3.9 mmol/L Normal 3.7-5.1 [facility] Comment on above: Order Comment: Johni men Type: BLOOD SPECIMENOrdering Facility: [facility] Address: [address] [place], [place] [address] Performed By: #### 2 4320-06, ####[facility] ProductsSUMMERS [facility] LABORATORYCLIA [id number] [place] [address] [place] Sodium [Moles/Vol] 140 mmol/L Normal 136-144 [facility] Comment on above: Order Comment: Speci men Type: BLOOD SPECIMENOrdering Facility: [facility] Address: [address] Performed By: #### 2 4320-06, ####[facility] LABORATORYCLIA [id number] [place] [address] [place] Urea nitrogen [Mass/Vol] 24 mg/dL Normal 9-24 [facility] Comment on above: Order Comment: Speci men Type: BLOOD SPECIMENOrdering Facility: [facility] Address: [address] [place] [address] Performed By: #### 2 4321-2, 83974-7 ####[facility] LABORATORYCLIA [id number] [address] [place] CASE MANAGEMon 06-25-2021 CASE MANAGEM Normal [facility] CBC panel Auto (Bld)on 06-25 Erythrocyte distribution width (RBC) [Ratio] 15.9 % High 11.5-15.0 [facility] Comment on above: Order Comment: Speci men Type: BLOOD SPECIMENOrdering Facility: [facility] Address: [address] [place] [address] Performed By: #### 5 8410-2 ####[facility] LABORATORYCLIA [id number] [address] [place] Hematocrit (Bld) [Volume fraction] 31.0 % Low 39.0-51.0 [facility] Comment on above: Order Comment: Speci men Type: BLOOD SPECIMENOrdering Facility: [facility] Address: [address] [place] [address] Performed By: #### 5 8410-2 ####[facility] LABORATORYCLIA [id number] [address] STATES [facility] Hemoglobin (Bld) [Mass/Vol] 9.4 g/dL Low 13.0-17.0 [facility] Comment on above: Order Comment: Speci men Type: BLOOD SPECIMENOrdering Facility: [facility] Address: [address] [place] [address] Performed By: #### 5 8410-2 ####[facility] LABORATORYCLIA [id number] [address] [place] MCH (RBC) [Entitic mass] 28.1 pg Normal 26.0-34.0 [facility] Comment on above: Order Comment: Speci men Type: BLOOD SPECIMENOrdering Facility: [facility] Address: [address] [place] [address] Performed By: #### 5 8410-2 ####[facility]OSPITALCLIA [id number] [address] STATES [facility] MCHC (RBC) [Mass/Vol] 30.3 g/dL Low 30.5-36.0 [facility] Comment on above: Order Comment: Speci men Type: BLOOD SPECIMENOrdering Facility: [facility] Address: [address] [place] [address] Performed By: #### 5 8410-2 ####[facility] LABORATORYCLIA [id number] [address] MCV (RBC) [Entitic vol] 92.5 fL Normal 80.0-100.0 [facility] Comment on above: Order Comment: Speci men Type: BLOOD SPECIMENOrdering Facility: [facility] Address: [address] [place] [address] Performed By: #### 5 8410-2 ####[facility] LABORATORYCLIA [id number] [address] Nucleated RBC (Bld) [#/Vol] 10*3/uL Normal <0.01 [facility] Comment on above: Order Comment: Speci men Type: BLOOD SPECIMENOrdering Facility: [facility] Address: [address] [place] [address] Performed By: #### 5 8410-2 ####[facility] LABORATORYCLIA [id number] [address] [place] Platelet mean volume (Bld) [Entitic vol] 10.5 fL Normal 9.0-12.7 [facility] Comment on above: Order Comment: Speci men Type: BLOOD SPECIMENOrdering Facility: [facility] Address: [address] [place] [address] Performed By: #### 5 8410-2 ####[facility] LABORATORYCLIA [id number] [address] [place] Platelets (Bld) [#/Vol] 311 10*3/uL Normal 150-400 [facility] Comment on above: Order Comment: Speci men Type: BLOOD SPECIMENOrdering Facility: [facility] Address: [address] [place] [address] Performed By: #### 5 8410-2 ####[facility] LABORATORYCLIA [id number] [address] OF [facility] RBC (Bld) [#/Vol] 3.35 10*6/uL Low 4.20-6.00 [facility] Comment on above: Order Comment: Speci men Type: BLOOD SPECIMENOrdering Facility: [facility] Address: [address] [place] [address] Performed By: #### 5 8410-2 ####[facility] LABORATORYCLIA [id number] [address] WBC (Bld) [#/Vol] 9.57 10*3/uL Normal 3.70-11.00 [facility] Comment on above: Order Comment: Speci men Type: BLOOD SPECIMENOrdering Facility: [facility] Address: [address] [place] [address] Performed By: #### 5 8410-2 ####[facility] LABORATORYCLIA [id number] [address] Magnesium SerPl-mCncon 06-25 Magnesium [Mass/Vol] 2.4 mg/dL High 1.7-2.3 [facility] Comment on above: Order Comment: Speci men Type: BLOOD SPECIMENOrdering Facility: [facility] Address: [address] [place] [address] Performed By: #### 2 4321-2, 54140-8 ####[facility] LABORATORYCLIA [id number] [address] Basic metabolic 2000 panelon 06-24-2021 Anion gap [Moles/Vol] 9 mmol/L Normal -18 [facility] Comment on above: Order Comment: Speci men Type: BLOOD SPECIMENOrdering Facility: [facility] Address: [address] [place] [address] Performed By: #### 1 9123-9, 47056-1 ####[facility] LABORATORYCLIA [id number] [place] [address] [place] Calcium [Mass/Vol] 8.6 mg/dL Normal 8.5-10.2 [facility] Comment on above: Order Comment: Speci men Type: BLOOD SPECIMENOrdering Facility: [facility] Address: [address] [place] [address] Performed By: #### 1 9123-9, 73311-7 ####[facility] LABORATORYCLIA [id number] [place] [address] [place] Chloride [Moles/Vol] 103 mmol/L Normal 97-105 [facility] Comment on above: Order Comment: Speci men Type: BLOOD SPECIMENOrdering Facility: [facility] Address: [address] [place] [address] Performed By: #### 1 239, 43755-2 ####[facility] LABORATORYCLIA [id number] [place] [address] [place] CO2 [Moles/Vol] 26 mmol/L Normal 22-30 [facility] Comment on above: Order Comment: Speci men Type: BLOOD SPECIMENOrdering Facility: [facility] Address: [address] [place] [address] Performed By: #### 1 91239, ####[facility] LABORATORYCLIA [id number] [place] [address] [place] Creatinine [Mass/Vol] 0.60 mg/dL Low 0.73-1.22 [facility] Comment on above: Order Comment: Speci men Type: BLOOD SPECIMENOrdering Facility: [facility] Address: [address] [place] [address] Performed By: #### 1 9123-9, 98702-1 ####[facility] LABORATORYCLIA [id number] [place] [address] [place] GFR/1.73 sq M.predicted MDRD (S/P/Bld) [Vol rate/Area] mL/min/{1.73_m2} Normal [facility] Comment on above: Order Comment: Shira feldman Type: BLOOD SPECIMENOrdering Facility: [facility] Address: [address] [place] [address] Result Comment: >60e GFR (Estimated GFR) Units [...] actual GFR. Performed By: #### 1 9123-9, 10343-0 ####[facility] LABORATORYCLIA [id number] [place] [address] [place] Glucose [Mass/Vol] 126 mg/dL High 74-99 [facility] Comment on above: Order Comment: Shira feldman Type: BLOOD SPECIMENOrdering Facility: [facility] Address: [address] [place] [phone] Result Comment: The [place] Diabetes Association (ADA) provides guidance for cutoff [...] Standards of Medical Care in Diabetes 2016, [place] Diabetes Association. Diabetes Care. 2016.39(Suppl 1). Performed By: #### 1 9123-9, 52591-3 ####[facility] LABORATORYCLIA [id number] [place] [address] [place] Potassium [Moles/Vol] 3.9 mmol/L Normal 3.7-5.1 [facility] Comment on above: Order Comment: Speci men Type: BLOOD SPECIMENOrdering Facility: [facility] Address: [address] [place] [address] Performed By: #### 1 9123-9, 41224-0 ####[facility] LABORATORYCLIA [id number] [place] [address] [place] Sodium [Moles/Vol] 138 mmol/L Normal 136-144 [facility] Comment on above: Order Comment: Speci men Type: BLOOD SPECIMENOrdering Facility: [facility] Address: [address] [place] [address] Performed By: #### 1 9123-9, 22776-4 ####[facility] LABORATORYCLIA [id number] [address] [place] Urea nitrogen [Mass/Vol] 24 mg/dL Normal 9-24 [facility] Comment on above: Order Comment: Speci men Type: BLOOD SPECIMENOrdering Facility: [facility] Address: [address] [place] [address] Performed By: #### 1 9123-9, ####[facility] LABORATORYCLIA [id number] [address] [place] CASE MANAGEMon 06-24-2021 CASE MANAGEM Normal [facility] CASE MANAGEM Normal [facility] CASE MANAGEM Normal [facility] CBC panel Auto (Bld)on 06-24 Erythrocyte distribution width (RBC) [Ratio] 16.1 % High 11.5-15.0 [facility] Comment on above: Order Comment: Speci men Type: BLOOD SPECIMENOrdering Facility: [facility] Address: [address] [place] [address] Performed By: #### 5 8410-2 ####[facility] LABORATORYCLIA [id number] [place] [address] [place] Hematocrit (Bld) [Volume fraction] 31.7 % Low 39.0-51.0 [facility] Comment on above: Order Comment: Speci men Type: BLOOD SPECIMENOrdering Facility: [facility] Address: [address] [place] [address] Performed By: #### 5 8410-2 ####[facility] LABORATORYCLIA [id number] [address] OF [facility] Hemoglobin (Bld) [Mass/Vol] 9.7 g/dL Low 13.0-17.0 [facility] Comment on above: Order Comment: Speci men Type: BLOOD SPECIMENOrdering Facility: [facility] Address: [address] [place] [address] Performed By: #### 5 8410-2 ####[facility] LABORATORYCLIA [id number] [address] STATES OF [facility] MCH (RBC) [Entitic mass] 28.0 pg Normal 26.0-34.0 [facility] Comment on above: Order Comment: Speci men Type: BLOOD SPECIMENOrdering Facility: [facility] Address: [address] [place] [address] Performed By: #### 5 8410-2 ####[facility] LABORATORYCLIA [id number] [address] MCHC (RBC) [Mass/Vol] 30.6 g/dL Normal 30.5-36.0 [facility] Comment on above: Order Comment: Speci men Type: BLOOD SPECIMENOrdering Facility: [facility] Address: [address] [place] [address] Performed By: #### 5 8410-2 ####[facility] LABORATORYCLIA [id number] [address] MCV (RBC) [Entitic vol] 91.4 fL Normal 80.0-100.0 [facility] Comment on above: Order Comment: Speci men Type: BLOOD SPECIMENOrdering Facility: [facility] Address: [address] [place] [address] Performed By: #### 5 8410-2 ####[facility] LABORATORYCLIA [id number] [address] [place] Nucleated RBC (Bld) [#/Vol] 10*3/uL Normal <0.01 [facility] Comment on above: Order Comment: Speci men Type: BLOOD SPECIMENOrdering Facility: [facility] Address: [address] [place] [address] Performed By: #### 5 8410-2 ####[facility] LABORATORYCLIA [id number] [address] [place] Platelet mean volume (Bld) [Entitic vol] 11.0 fL Normal 9.0-12.7 [facility] Comment on above: Order Comment: Speci men Type: BLOOD SPECIMENOrdering Facility: [facility] Address: [address] [place] [address] Performed By: #### 5 8410-2 ####[facility] LABORATORYCLIA [id number] [address] Platelets (Bld) [#/Vol] 358 10*3/uL Normal 150-400 [facility] Comment on above: Order Comment: Speci men Type: BLOOD SPECIMENOrdering Facility: [facility] Address: [address] [place] [address] Performed By: #### 5 8410-2 ####[facility] LABORATORYCLIA [id number] [address] [place] RBC (Bld) [#/Vol] 3.47 10*6/uL Low 4.20-6.00 [facility] Comment on above: Order Comment: Speci men Type: BLOOD SPECIMENOrdering Facility: [facility] Address: [address] [place] [address] Performed By: #### 5 8410-2 ####[facility] LABORATORYCLIA [id number] [address] [place] WBC (Bld) [#/Vol] 10.07 10*3/uL Normal 3.70-11.00 [facility] Comment on above: Order Comment: Speci men Type: BLOOD SPECIMENOrdering Facility: [facility] Address: [address] [place] [address] Performed By: #### 5 8410-2 ####[facility] LABORATORYCLIA [id number] [place] [address] [place] Magnesium SerPl-mCncon 06-24 Magnesium [Mass/Vol] 2.3 mg/dL Normal 1.7-2.3 [facility] Comment on above: Order Comment: Speci men Type: BLOOD SPECIMENOrdering Facility: [facility] Address: [address] [place] [address] Performed By: #### 1 9123-9, 66636-5 ####[facility]ORATORYCLIA [id number] [place] [address] [place] ALLIED HEALTHon 06-23-2021 ALLIED HEALTH Normal [facility] Basic metabolic 2000 panelon 06-23-2021 Anion gap [Moles/Vol] 9 mmol/L Normal 9-18 [facility] Comment on above: Order Comment: Speci men Type: BLOOD SPECIMENOrdering Facility: [facility] Address: [address] [place] [address] Performed By: #### 1 9123-9, 95278-2 ####[facility] LABORATORYCLIA [id number] [place] [address] [place] Calcium [Mass/Vol] 8.4 mg/dL Low 8.5-10.2 [facility] Comment on above: Order Comment: Speci men Type: BLOOD SPECIMENOrdering Facility: [facility] Address: [address] [place] [address] Performed By: #### 1 9123-9, 54967-2 ####[facility]ORATORYCLIA [id number] [place] [address] [place] Chloride [Moles/Vol] 104 mmol/L Normal 97-105 [facility] Comment on above: Order Comment: Speci men Type: BLOOD SPECIMENOrdering Facility: [facility] Address: [address] [place], [place] [address]L[place] [address] Performed By: #### 1 9123-9, 09282-2 ####[facility] LABORATORYCLIA [id number] [address] STATES OF [facility] CO2 [Moles/Vol] 26 mmol/L Normal 22-30 [facility] Comment on above: Order Comment: Speci men Type: BLOOD SPECIMENOrdering Facility: [facility] Address: [address] [place] [address] Performed By: #### 1 9123-9, 56762-0 ####[facility]ORATORYCLIA [id number] [address] [place] Creatinine [Mass/Vol] 0.62 mg/dL Low 0.73-1.22 [facility] Comment on above: Order Comment: Speci men Type: BLOOD SPECIMENOrdering Facility: [facility] Address: [address] [place] [address] Performed By: #### 1 9123-9, 69226-2 ####[facility] LABORATORYCLIA [id number] [address] [place] GFR/1.73 sq M.predicted MDRD (S/P/Bld) [Vol rate/Area] mL/min/{1.73_m2} Normal [facility] Comment on above: Order Comment: Speci men Type: BLOOD SPECIMENOrdering Facility: [facility] Address: [address] [place] [address] Result Comment: >60e GFR (Estimated GFR) Units [...] actual GFR. Performed By: #### 1 9123-9, 02617-6 ####[facility]ORATORYCLIA [id number] [place] [address] [place] Glucose [Mass/Vol] 111 mg/dL High 74-99 [facility] Comment on above: Order Comment: Speci men Type: BLOOD SPECIMENOrdering Facility: [facility] Address: [address] [place] [address] Result Comment: The [place] Diabetes Association (ADA) provides guidance for cutoff [...] Standards of Medical Care in Diabetes 2016, [place] [employer]. Diabetes Care. 2016.39(Suppl 1). Performed By: #### 1 9123-9, 62413-1 ####[facility] LABORATORYCLIA [id number] [place] [address] [place] Potassium [Moles/Vol] 4.1 mmol/L Normal 3.7-5.1 [facility] Comment on above: Order Comment: Speci men Type: BLOOD SPECIMENOrdering Facility: [facility] Address: [address] [place] [address] Performed By: #### 1 9123-9, 12824-4 ####[facility]ORATORYCLIA [id number] [place] [address] [place] Sodium [Moles/Vol] 139 mmol/L Normal 136-144 [facility] Comment on above: Order Comment: Speci men Type: BLOOD SPECIMENOrdering Facility: [facility] Address: [address] [place] [address] Performed By: #### 1 9123-9-2 ####[facility]ORATORYCLIA [id number] [place] [address] [place] Urea nitrogen [Mass/Vol] 26 mg/dL High 9-24 [facility] Comment on above: Order Comment: Speci men Type: BLOOD SPECIMENOrdering Facility: [facility] Address: [address] [place] [address] Performed By: #### 1 9123-9, 62187-8 ####[facility] LABORATORYCLIA [id number] [address] OF [facility] CASE MANAGEMon 06-23-2021 CASE MANAGEM Normal [facility] CBC panel Auto (Bld)on 06-23 Erythrocyte distribution width (RBC) [Ratio] 16.0 % High 11.5-15.0 [facility] Comment on above: Order Comment: Speci men Type: BLOOD SPECIMENOrdering Facility: [facility] Address: [address] [place] [address] Performed By: #### 5 8410-2 ####[facility] LABORATORYCLIA [id number] [address] STATES OF [facility] Hematocrit (Bld) [Volume fraction] 31.1 % Low 39.0-51.0 [facility] Comment on above: Order Comment: Speci men Type: BLOOD SPECIMENOrdering Facility: [facility] Address: [address] [place] [address] Performed By: #### 5 8410-2 ####[facility]ORATORYCLIA [id number] [place] [address] [place] Hemoglobin (Bld) [Mass/Vol] 9.5 g/dL Low 13.0-17.0 [facility] Comment on above: Order Comment: Speci men Type: BLOOD SPECIMENOrdering Facility: [facility] Address: [address] [place] [address] Performed By: #### 5 8410-2 ####[facility]ORATORYCLIA [id number] [place] [address] [place] MCH (RBC) [Entitic mass] 28.1 pg Normal 26.0-34.0 [facility] Comment on above: Order Comment: Speci men Type: BLOOD SPECIMENOrdering Facility: [facility] Address: [address] [place] [address] Performed By: #### 5 8410-2 ####[facility] LABORATORYCLIA [id number] [address] MCHC (RBC) [Mass/Vol] 30.5 g/dL Normal 30.5-36.0 [facility] Comment on above: Order Comment: Speci men Type: BLOOD SPECIMENOrdering Facility: [facility] Address: [address] [place] [address] Performed By: #### 5 8410-2 ####[facility] LABORATORYCLIA [id number] [address] MCV (RBC) [Entitic vol] 92.0 fL Normal 80.0-100.0 [facility] Comment on above: Order Comment: Speci men Type: BLOOD SPECIMENOrdering Facility: [facility] Address: [address] [place] [address] Performed By: #### 5 8410-2 ####[facility] LABORATORYCLIA [id number] [address] Nucleated RBC (Bld) [#/Vol] 10*3/uL Normal <0.01 [facility] Comment on above: Order Comment: Speci men Type: BLOOD SPECIMENOrdering Facility: [facility] Address: [address] [place] [address] Performed By: #### 5 8410-2 ####[facility]ORATORYCLIA [id number] [address] Platelet mean volume (Bld) [Entitic vol] 11.0 fL Normal 9.0-12.7 [facility] Comment on above: Order Comment: Speci men Type: BLOOD SPECIMENOrdering Facility: [facility] Address: [address] [place] [address] Performed By: #### 5 8410-2 ####[facility]ORATORYCLIA [id number] [place] [address] [place] Platelets (Bld) [#/Vol] 361 10*3/uL Normal 150-400 [facility] Comment on above: Order Comment: Speci men Type: BLOOD SPECIMENOrdering Facility: [facility] Address: [address] [place] [address] Performed By: #### 5 8410-2 ####[facility]ORATORYCLIA [id number] [place] [address] [place] RBC (Bld) [#/Vol] 3.38 10*6/uL Low 4.20-6.00 [facility] Comment on above: Order Comment: Speci men Type: BLOOD SPECIMENOrdering Facility: [facility] Address: [address] [place] [address] Performed By: #### 5 8410-2 ####[facility] LABORATORYCLIA [id number] [address] OF [facility] WBC (Bld) [#/Vol] 9.02 10*3/uL Normal 3.70-11.00 [facility] Comment on above: Order Comment: Speci men Type: BLOOD SPECIMENOrdering Facility: [facility] Address: [address] [place] [address] Performed By: #### 5 8410-2 ####[facility] LABORATORYCLIA [id number] [address] [place] CONSULT PROGon 06-23-2021 CONSULT PROG Normal [facility] CONSULT PROG Normal [facility] Magnesium SerPl-mCncon 06-23 Magnesium [Mass/Vol] 2.4 mg/dL High 1.7-2.3 [facility] Comment on above: Order Comment: Speci men Type: BLOOD SPECIMENOrdering Facility: [facility] Address: [address] [place] [address] Performed By: #### 1 9123-9, 69602-2 ####[facility] LABORATORYCLIA [id number] [address] [place] THERAPY NTon 06-23-2021 THERAPY NT Normal [facility] Vancomycin random [Mass/Vol] on 06-23-2021 Vancomycin [Mass/Vol] 22.8 ug/mL High 10.0-20.0 [facility] Comment on above: Order Comment: Speci men Type: BLOOD SPECIMENOrdering Facility: [facility] Address: [address] [place] [address] Result Comment: Refe rence ranges and high/low indicator flags are provided as general guidelines only. The treating physician must determine appropriate target levels/dosing based on the specific clinical situation. Performed By: #### 4 091-5 ####[facility]ORATORYCLIA [id number] [address] [place] XR MOD BARIUM SWALLOW W SPEE Lore 06-23-2021 XR MOD BARIUM SWALLOW W SPEECH Normal [facility] Basic metabolic 2000 panelon 06-22-2021 Anion gap [Moles/Vol] 6 mmol/L Low 9-18 [facility] Comment on above: Order Comment: Speci men Type: BLOOD SPECIMENOrdering Facility: [facility] Address: [address] [place] [address] Performed By: #### 2 4321-2, 11717-5 ####[facility]ORATORYCLIA [id number] [place] [address] [place] Calcium [Mass/Vol] 8.5 mg/dL Normal 8.5-10.2 [facility] Comment on above: Order Comment: Speci men Type: BLOOD SPECIMENOrdering Facility: [facility] Address: [address] [place], [place] [address] Performed By: #### 2 4321-2, ####[facility]ORATORYCLIA [id number] [place] [address] [place] Chloride [Moles/Vol] 105 mmol/L Normal 97-105 [facility] Comment on above: Order Comment: Speci men Type: BLOOD SPECIMENOrdering Facility: [facility] Address: [address] [place], [place] [address] [address] Performed By: #### 2 4321-2, ####[facility]ORATORYCLIA [id number] [address] [place] CO2 [Moles/Vol] 26 mmol/L Normal 22-30 [facility] Comment on above: Order Comment: Speci men Type: BLOOD SPECIMENOrdering Facility: [facility] Address: [address] [place] [address] Performed By: #### 2 43205-08, ####[facility]ORATORYCLIA [id number] [address] [place] Creatinine [Mass/Vol] 0.56 mg/dL Low 0.73-1.22 [facility] Comment on above: Order Comment: Speci men Type: BLOOD SPECIMENOrdering Facility: [facility] Address: [address] [place] [address] Performed By: #### 2 43205-08, ####[facility]ORATORYCLIA [id number] [address] [place] GFR/1.73 sq M.predicted MDRD (S/P/Bld) [Vol rate/Area] mL/min/{1.73_m2} Normal [facility] Comment on above: Order Comment: Speci men Type: BLOOD SPECIMENOrdering Facility: [facility] Address: [address] [place] [address] Result Comment: >60e GFR (Estimated GFR) Units [...] 2 ####[facility] LABORATORYCLIA [id number] [place] [address] [place] Glucose [Mass/Vol] 120 mg/dL High 74-99 [facility] Comment on above: Order Comment: Speci men Type: BLOOD SPECIMENOrdering Facility: [facility] Address: [address] [place] [address] Result Comment: The [place] Diabetes Association (ADA) provides guidance for cutoff [...] Standards of Medical Care in Diabetes 2016, [place] [employer]. Diabetes Care. 2016.39(Suppl 1). Performed By: #### 2 ####[facility] LABORATORYCLIA [id number] [place] [address] [place] Potassium [Moles/Vol] 4.0 mmol/L Normal 3.7-5.1 [facility] Comment on above: Order Comment: Speci men Type: BLOOD SPECIMENOrdering Facility: [facility] Address: [address] [place], [place] [address] Performed By: #### 2 ####[facility] LABORATORYCLIA [id number] [place] [id number] [place] Sodium [Moles/Vol] 137 mmol/L Normal 136-144 [facility] Comment on above: Order Comment: Speci men Type: BLOOD SPECIMENOrdering Facility: [facility] Address: [address] [place], [place] [address] Performed By: #### 2 ####[facility] LABORATORYCLIA [id number] [address] [place] Urea nitrogen [Mass/Vol] 25 mg/dL High 9-24 [facility] Comment on above: Order Comment: Speci men Type: BLOOD SPECIMENOrdering Facility: [facility] Address: [address] [place] [address] Performed By: #### 2 4321-2, 83607-3 ####[facility] LABORATORYCLIA [id number] [address] [place] CASE MANAGEMon 06-22-2021 CASE MANAGEM Normal [facility] CBC panel Auto (Bld)on 06-22 Erythrocyte distribution width (RBC) [Ratio] 16.0 % High 11.5-15.0 [facility] Comment on above: Order Comment: Speci men Type: BLOOD SPECIMENOrdering Facility: [facility] Address: [address] [place] [address] Performed By: #### 5 8410-2 ####[facility]ORATORYCLIA [id number] [address] [place] Hematocrit (Bld) [Volume fraction] 30.5 % Low 39.0-51.0 [facility] Comment on above: Order Comment: Speci men Type: BLOOD SPECIMENOrdering Facility: [facility] Address: [address] [place] [address] Performed By: #### 5 8410-2 ####[facility]ORATORYCLIA [id number] [address] [place] Hemoglobin (Bld) [Mass/Vol] 9.3 g/dL Low 13.0-17.0 [facility] Comment on above: Order Comment: Speci men Type: BLOOD SPECIMENOrdering Facility: [facility] Address: [address] [place] [address] Performed By: #### 5 8410-2 ####[facility]ORATORYCLIA [id number] [address] [place] MCH (RBC) [Entitic mass] 28.4 pg Normal 26.0-34.0 [facility] Comment on above: Order Comment: Speci men Type: BLOOD SPECIMENOrdering Facility: [facility] Address: [address] [place] [address] Performed By: #### 5 8410-2 ####[facility] LABORATORYCLIA [id number] [address] MCHC (RBC) [Mass/Vol] 30.5 g/dL Normal 30.5-36.0 [facility] Comment on above: Order Comment: Speci men Type: BLOOD SPECIMENOrdering Facility: [facility] Address: [address] [place] [address] Performed By: #### 5 8410-2 ####[facility] LABORATORYCLIA [id number] [address] MCV (RBC) [Entitic vol] 93.3 fL Normal 80.0-100.0 [facility] Comment on above: Order Comment: Speci men Type: BLOOD SPECIMENOrdering Facility: [facility] Address: [address] [place] [address] Performed By: #### 5 8410-2 ####[facility] LABORATORYCLIA [id number] [address] Nucleated RBC (Bld) [#/Vol] 10*3/uL Normal <0.01 [facility] Comment on above: Order Comment: Speci men Type: BLOOD SPECIMENOrdering Facility: [facility] Address: [address] [place] [address] Performed By: #### 5 8410-2 ####[facility]ORATORYCLIA [id number] [address] Platelet mean volume (Bld) [Entitic vol] 11.5 fL Normal 9.0-12.7 [facility] Comment on above: Order Comment: Speci men Type: BLOOD SPECIMENOrdering Facility: [facility] Address: [address] [place] [address] Performed By: #### 5 8410-2 ####[facility]ITALCLIA [id number] [address] [place] Platelets (Bld) [#/Vol] 346 10*3/uL Normal 150-400 [facility] Comment on above: Order Comment: Speci men Type: BLOOD SPECIMENOrdering Facility: [facility] Address: [address] [place] [address] Performed By: #### 5 8410-2 ####[facility] LABORATORYCLIA [id number] [address] [place] RBC (Bld) [#/Vol] 3.27 10*6/uL Low 4.20-6.00 [facility] Comment on above: Order Comment: Speci men Type: BLOOD SPECIMENOrdering Facility: [facility] Address: [address] [place] [address] Performed By: #### 5 8410-2 ####[facility]ITALCLIA [id number] [address] OF [facility] WBC (Bld) [#/Vol] 9.44 10*3/uL Normal 3.70-11.00 [facility] Comment on above: Order Comment: Speci men Type: BLOOD SPECIMENOrdering Facility: [facility] Address: [address] [place] [address] Performed By: #### 5 8410-2 ####[facility] LABORATORYCLIA [id number] [address] OF [place] HEMOGLOBIN (HGB)on Hemoglobin (Bld) [Mass/Vol] 9.7 g/dL Low 13.0-17.0 [facility] Comment on above: Order Comment: Speci men Type: BLOOD SPECIMENOrdering Facility: [facility] Address: [address] [place] [address] Performed By: #### H GB ####[facility] LABORATORYCLIA [id number] [address] [place] Magnesium SerPl-mCncon 06-22 Magnesium [Mass/Vol] 2.4 mg/dL High 1.7-2.3 [facility] Comment on above: Order Comment: Speci men Type: BLOOD SPECIMENOrdering Facility: [facility] Address: [address] [place] [address] Performed By: #### 2 4321-2, ####[facility] LABORATORYCLIA [id number] [address] OF [facility] THERAPY NTon 06-22-2021 THERAPY NT Normal [facility] THERAPY NT Normal [facility] aPTT PPPon 06-22-2021 aPTT Coag (PPP) [Time] 62.3 s High 23.0-32.[address] [facility] Comment on above: Order Comment: Speci men Type: BLOOD SPECIMENOrdering Facility: [facility] Address: [address] [place] [address] Performed By: #### 1 4979-9 ####[facility]ORATORYCLIA [id number] [address] [place] ALLIED HEALTHon 06-21-2021 ALLIED HEALTH Normal [facility] Basic metabolic 2000 panelon 06-21-2021 Anion gap [Moles/Vol] 8 mmol/L Low 9-18 [facility] Comment on above: Order Comment: Speci men Type: BLOOD SPECIMENOrdering Facility: [facility] Address: [address] [place] [address] Performed By: #### 2 4321-2, ####[facility] LABORATORYCLIA [id number] [place] [address] [place] Calcium [Mass/Vol] 8.2 mg/dL Low 8.5-10.2 [facility] Comment on above: Order Comment: Speci men Type: BLOOD SPECIMENOrdering Facility: [facility] Address: [address] [place] [address] Performed By: #### 2 4321-2, ####[facility] LABORATORYCLIA [id number] [place] [address] [place] Chloride [Moles/Vol] 108 mmol/L High 97-105 [facility] Comment on above: Order Comment: Speci men Type: BLOOD SPECIMENOrdering Facility: [facility] Address: [address] [place] [address] Performed By: #### 2 4321-2, ####[facility]ORATORYCLIA [id number] [place] [address] [place] CO2 [Moles/Vol] 24 mmol/L Normal 22-30 [facility] Comment on above: Order Comment: Speci men Type: BLOOD SPECIMENOrdering Facility: [facility] Address: [address] [place] [address] Performed By: #### 2 43205-08, ####[facility] LABORATORYCLIA [id number] [address] [place] Creatinine [Mass/Vol] 0.61 mg/dL Low 0.73-1.22 [facility] Comment on above: Order Comment: Speci men Type: BLOOD SPECIMENOrdering Facility: [facility] Address: [address] [place] [address] Performed By: #### 2 43205-08, ####[facility] [facility] [id number] [address] [place] GFR/1.73 sq M.predicted MDRD (S/P/Bld) [Vol rate/Area] mL/min/{1.73_m2} Normal [facility] Comment on above: Order Comment: Speci men Type: BLOOD SPECIMENOrdering Facility: [facility] Address: [address] [place] [address] Result Comment: >60e GFR (Estimated GFR) Units [...] actual GFR. Performed By: #### 2 4321-, 84553-9 ####[facility]ATORYCLIA [id number] [place] [address] [place] Glucose [Mass/Vol] 211 mg/dL High 74-99 [facility] Comment on above: Order Comment: Shira feldman Type: BLOOD SPECIMENOrdering Facility: [facility] Address: [address] [phone] Result Comment: The [place] Diabetes Association (ADA) provides guidance for cutoff [...] Standards of Medical Care in Diabetes 2016, [place] Diabetes Association. Diabetes Care. 2016.39(Suppl 1). Performed By: #### 2 432-, ####[facility]ATORYCLIA [id number] [place] [address] [place] Potassium [Moles/Vol] 4.3 mmol/L Normal 3.7-5.1 [facility] Comment on above: Order Comment: Shira feldman Type: BLOOD SPECIMENOrdering Facility: [facility] Address: [address] [phone] Performed By: #### 2 432-, ####[facility]ATORYCLIA [id number] [place] [address] [place] Sodium [Moles/Vol] 140 mmol/L Normal 136-144 [facility] Comment on above: Order Comment: Shira feldman Type: BLOOD SPECIMENOrdering Facility: [facility] Address: [address] [address] Performed By: #### 2 4321-2, ####[facility]ATORYCLIA [id number] [address] STATES [facility] Urea nitrogen [Mass/Vol] 26 mg/dL High 9-24 [facility] Comment on above: Order Comment: Speci men Type: BLOOD SPECIMENOrdering Facility: [facility] Address: [address] [place] [address] Performed By: #### 2 4321-2, ####[facility]ATORYCLIA [id number] [address] CBC panel Auto (Bld)on 06-21 Erythrocyte distribution width (RBC) [Ratio] 16.1 % High 11.5-15.0 [facility] Comment on above: Order Comment: Speci men Type: BLOOD SPECIMENOrdering Facility: [facility] Address: [address] [place] [address] Performed By: #### 5 8410-2 ####[facility]ATORYCLIA [id number] [address] Hematocrit (Bld) [Volume fraction] 29.7 % Low 39.0-51.0 [facility] Comment on above: Order Comment: Speci men Type: BLOOD SPECIMENOrdering Facility: [facility] Address: [address] [place] [address] Performed By: #### 5 8410-2 ####[facility]ATORYCLIA [id number] [address] STATES OF [facility] Hemoglobin (Bld) [Mass/Vol] 9.2 g/dL Low 13.0-17.0 [facility] Comment on above: Order Comment: Speci men Type: BLOOD SPECIMENOrdering Facility: [facility] Address: [address] [place] [address] Performed By: #### 5 8410-2 ####[facility]ATORYCLIA [id number] [place] [address] MCH (RBC) [Entitic mass] 28.8 pg Normal 26.0-34.0 [facility] Comment on above: Order Comment: Speci men Type: BLOOD SPECIMENOrdering Facility: [facility] Address: [address] [place] [address] Performed By: #### 5 8410-2 ####[facility]ATORYCLIA [id number] [address] MCHC (RBC) [Mass/Vol] 31.0 g/dL Normal 30.5-36.0 [facility] Comment on above: Order Comment: Speci men Type: BLOOD SPECIMENOrdering Facility: [facility] Address: [address] [place] [address] Performed By: #### 5 8410-2 ####[facility]ATORYCLIA [id number] [address] MCV (RBC) [Entitic vol] 93.1 fL Normal 80.0-100.0 [facility] Comment on above: Order Comment: Speci men Type: BLOOD SPECIMENOrdering Facility: [facility] Address: [address] [place] [address] Performed By: #### 5 8410-2 ####[facility]ATORYCLIA [id number] [address] Nucleated RBC (Bld) [#/Vol] 10*3/uL Normal <0.01 [facility] Comment on above: Order Comment: Speci men Type: BLOOD SPECIMENOrdering Facility: [facility] Address: [address] [place] [address] Performed By: #### 5 8410-2 ####[facility]ATORYCLIA [id number] [address] Platelet mean volume (Bld) [Entitic vol] 11.6 fL Normal 9.0-12.7 [facility] Comment on above: Order Comment: Speci men Type: BLOOD SPECIMENOrdering Facility: [facility] Address: [address] [place] [address] Performed By: #### 5 8410-2 ####[facility]ATORYCLIA [id number] [address] OF [facility] Platelets (Bld) [#/Vol] 347 10*3/uL Normal 150-400 [facility] Comment on above: Order Comment: Speci men Type: BLOOD SPECIMENOrdering Facility: [facility] Address: [address] [place] [address] Performed By: #### 5 8410-2 ####[facility]ATORYCLIA [id number] [address] [place] RBC (Bld) [#/Vol] 3.19 10*6/uL Low 4.20-6.00 [facility] Comment on above: Order Comment: Speci men Type: BLOOD SPECIMENOrdering Facility: [facility] Address: [address] [place] [address] Performed By: #### 5 8410-2 ####[facility]ATORYCLIA [id number] [address] OF [facility] WBC (Bld) [#/Vol] 10.29 10*3/uL Normal 3.70-11.00 [facility] Comment on above: Order Comment: Speci men Type: BLOOD SPECIMENOrdering Facility: [facility] Address: [address] [place] [address] Performed By: #### 5 8410-2 ####[facility]ATORYCLIA [id number] [address] CONSULT PROGon 06-21-2021 CONSULT PROG Normal [facility] CONSULT PROG Normal [facility] Magnesium SerPl-mCncon 06-21 Magnesium [Mass/Vol] 2.5 mg/dL High 1.7-2.3 [facility] Comment on above: Order Comment: Speci men Type: BLOOD SPECIMENOrdering Facility: [facility] Address: [address] [place] [address] Performed By: #### 2 4321-2, 32710-2 ####[facility]ATORYCLIA [id number] [place] [address] [place] NUTRITIONon 06-21-2021 NUTRITION Normal [facility] XR CHEST 1V FRONTALon 2021 XR CHEST 1V FRONTAL Normal [facility] aPTT PPPon 06-21-2021 aPTT Coag (PPP) [Time] 68.5 s High 23.0-32.[address] [facility] Comment on above: Order Comment: Speci men Type: BLOOD SPECIMENOrdering Facility: [facility] Address: [address] [place] [address] Performed By: #### 1 4979-9 ####[facility]ATORYCLIA [id number] [address] STATES OF [facility] aPTT Coag (PPP) [Time] 57.8 s High 23.0-32.[address] [facility] Comment on above: Order Comment: Speci men Type: BLOOD SPECIMENOrdering Facility: [facility] Address: [address] [place] [address] Performed By: #### 1 4979-9 ####[facility]ATORYCLIA [id number] [place] [address] [place] Basic metabolic 2000 panelon 06-20-2021 Anion gap [Moles/Vol] 9 mmol/L Normal 9-18 [facility] Comment on above: Order Comment: Speci men Type: BLOOD SPECIMENOrdering Facility: [facility] Address: [address] [place] [address] Performed By: #### 2 4321-2, 61948-8 ####[facility]ATORYCLIA [id number] [address] [place] Calcium [Mass/Vol] 8.3 mg/dL Low 8.5-10.2 [facility] Comment on above: Order Comment: Speci men Type: BLOOD SPECIMENOrdering Facility: [facility] Address: [address] [place] [address] Performed By: #### 2 432-2, ####[facility]ATORYCLIA [id number] [place] [address] [place] Chloride [Moles/Vol] 111 mmol/L High 97-105 [facility] Comment on above: Order Comment: Speci men Type: BLOOD SPECIMENOrdering Facility: [facility] Address: [address] [place] [address] Performed By: #### 2 432-2, ####[facility]ATORYCLIA [id number] [place] [address] [place] CO2 [Moles/Vol] 24 mmol/L Normal 22-30 [facility] Comment on above: Order Comment: Speci men Type: BLOOD SPECIMENOrdering Facility: [facility] Address: [address] [place] [address] Performed By: #### 2 43205-08, ####[facility]ATORYCLIA [id number] [address] [place] Creatinine [Mass/Vol] 0.64 mg/dL Low 0.73-1.22 [facility] Comment on above: Order Comment: Speci men Type: BLOOD SPECIMENOrdering Facility: [facility] Address: [address] [place] [address] Performed By: #### 2 43205-08, ####[facility]ATORYCLIA [id number] [place] [address] [place] GFR/1.73 sq M.predicted MDRD (S/P/Bld) [Vol rate/Area] mL/min/{1.73_m2} Normal [facility] Comment on above: Order Comment: Speci men Type: BLOOD SPECIMENOrdering Facility: [facility] Address: [address] [place] [address] Result Comment: >60e GFR (Estimated GFR) Units [...] 43205-08, ####[facility]ATORYCLIA [id number] [place] [address] [place] Glucose [Mass/Vol] 114 mg/dL High 74-99 [facility] Comment on above: Order Comment: Shira feldman Type: BLOOD SPECIMENOrdering Facility: [facility] Address: [address] [phone] Result Comment: The [place] Diabetes Association (ADA) provides guidance for cutoff [...] Standards of Medical Care in Diabetes 2016, [place] Diabetes Association. Diabetes Care. 2016.39(Suppl 1). Performed By: #### 2 4320-06, ####[facility]ATORYCLIA [id number] [place] [address] [place] Potassium [Moles/Vol] 4.1 mmol/L Normal 3.7-5.1 [facility] Comment on above: Order Comment: Shira feldman Type: BLOOD SPECIMENOrdering Facility: [facility] Address: [address] [phone] Performed By: #### 2 43205-08, ####[facility]ATORYCLIA [id number] [place] [address] [place] Sodium [Moles/Vol] 144 mmol/L Normal 136-144 [facility] Comment on above: Order Comment: Speci men Type: BLOOD SPECIMENOrdering Facility: [facility] Address: [address] [place] [address] Performed By: #### 2 4321-2, ####[facility]ATORYCLIA [id number] [address] STATES OF [facility] Urea nitrogen [Mass/Vol] 27 mg/dL High 9-24 [facility] Comment on above: Order Comment: Speci men Type: BLOOD SPECIMENOrdering Facility: [facility] Address: [address] [place] [address] Performed By: #### 2 432-2, ####[facility]ATORYCLIA [id number] [address] OF [facility] CASE MANAGEMon 06-20-2021 CASE MANAGEM Normal [facility] CBC panel Auto (Bld)on 06-20 Erythrocyte distribution width (RBC) [Ratio] 15.9 % High 11.5-15.0 [facility] Comment on above: Order Comment: Speci men Type: BLOOD SPECIMENOrdering Facility: [facility] Address: [address] [place] [address] Performed By: #### 5 8410-2 ####[facility]ATORYCLIA [id number] [address] [place] Hematocrit (Bld) [Volume fraction] 31.0 % Low 39.0-51.0 [facility] Comment on above: Order Comment: Speci men Type: BLOOD SPECIMENOrdering Facility: [facility] Address: [address] [place] [address] Performed By: #### 5 8410-2 ####[facility]ATORYCLIA [id number] [address] [place] Hemoglobin (Bld) [Mass/Vol] 9.2 g/dL Low 13.0-17.0 [facility] Comment on above: Order Comment: Speci men Type: BLOOD SPECIMENOrdering Facility: [facility] Address: [address] [place] [address] Performed By: #### 5 8410-2 ####[facility]ATORYCLIA [id number] [address] MCH (RBC) [Entitic mass] 27.4 pg Normal 26.0-34.0 [facility] Comment on above: Order Comment: Speci men Type: BLOOD SPECIMENOrdering Facility: [facility] Address: [address] [place] [address] Performed By: #### 5 8410-2 ####[facility]ATORYCLIA [id number] [address] MCHC (RBC) [Mass/Vol] 29.7 g/dL Low 30.5-36.0 [facility] Comment on above: Order Comment: Speci men Type: BLOOD SPECIMENOrdering Facility: [facility] Address: [address] [place] [address] Performed By: #### 5 8410-2 ####[facility]ATORYCLIA [id number] [address] MCV (RBC) [Entitic vol] 92.3 fL Normal 80.0-100.0 [facility] Comment on above: Order Comment: Speci men Type: BLOOD SPECIMENOrdering Facility: [facility] Address: [address] [place] [address] Performed By: #### 5 8410-2 ####[facility]ATORYCLIA [id number] [address] Nucleated RBC (Bld) [#/Vol] 10*3/uL Normal <0.01 [facility] Comment on above: Order Comment: Speci men Type: BLOOD SPECIMENOrdering Facility: [facility] Address: [address] [place] [address] Performed By: #### 5 8410-2 ####[facility]ATORYCLIA [id number] [address] Platelet mean volume (Bld) [Entitic vol] 11.5 fL Normal 9.0-12.7 [facility] Comment on above: Order Comment: Speci men Type: BLOOD SPECIMENOrdering Facility: [facility] Address: [address] [place] [address] Performed By: #### 5 8410-2 ####[facility]ATORYCLIA [id number] [address] [place] Platelets (Bld) [#/Vol] 343 10*3/uL Normal 150-400 [facility] Comment on above: Order Comment: Speci men Type: BLOOD SPECIMENOrdering Facility: [facility] Address: [address] [place] [address] Performed By: #### 5 8410-2 ####[facility]ATORYCLIA [id number] [address] RBC (Bld) [#/Vol] 3.36 10*6/uL Low 4.20-6.00 [facility] Comment on above: Order Comment: Speci men Type: BLOOD SPECIMENOrdering Facility: [facility] Address: [address] [place] [address] Performed By: #### 5 8410-2 ####[facility]ATORYCLIA [id number] [address] WBC (Bld) [#/Vol] 10.71 10*3/uL Normal 3.70-11.00 [facility] Comment on above: Order Comment: Speci men Type: BLOOD SPECIMENOrdering Facility: [facility] Address: [address] [place] [address] Performed By: #### 5 8410-2 ####[facility]ATORYCLIA [id number] [address] CONSULT PROGon 06-20-2021 CONSULT PROG Normal [facility] HEMOGLOBIN (HGB)on 2 Hemoglobin (Bld) [Mass/Vol] 9.7 g/dL Low 13.0-17.0 [facility] Comment on above: Order Comment: Speci men Type: BLOOD SPECIMENOrdering Facility: [facility] Address: [address] [place] [address] Performed By: #### H GB ####[facility]ATORYCLIA [id number] [address] [place] Magnesium SerPl-mCncon 06-20 Magnesium [Mass/Vol] 2.5 mg/dL High 1.7-2.3 [facility] Comment on above: Order Comment: Speci men Type: BLOOD SPECIMENOrdering Facility: [facility] Address: [address] [place] [address] Performed By: #### 2 4321-2, 50632-0 ####[facility]ATORYCLIA [id number] [address] [place] NURSING PROGon 06-20-2021 NURSING PROG Normal [facility] THERAPY NTon 06-20-2021 THERAPY NT Normal [facility] aPTT PPPon 06-20-2021 aPTT Coag (PPP) [Time] 93.5 s High 23.0-32.[address] [facility] Comment on above: Order Comment: Speci men Type: BLOOD SPECIMENOrdering Facility: [facility] Address: [address] [place] [address] Performed By: #### 1 4979-9 ####[facility]ATORYCLIA [id number] [address] STATES [facility] aPTT Coag (PPP) [Time] 47.1 s High 23.0-32.[address] [facility] Comment on above: Order Comment: Speci men Type: BLOOD SPECIMENOrdering Facility: [facility] Address: [address] [place] [address] Performed By: #### 1 4979-9 ####[facility]ATORYCLIA [id number] [place] [address] [place] Basic metabolic 2000 panelon 06-19-2021 Anion gap [Moles/Vol] 7 mmol/L Low 9-18 [facility] Comment on above: Order Comment: Speci men Type: BLOOD SPECIMENOrdering Facility: [facility] Address: [address] [place] [address] Performed By: #### 2 4321-2 ####[facility]ATORYCLIA [id number] [place] [address] [place] Calcium [Mass/Vol] 8.1 mg/dL Low 8.5-10.2 [facility] Comment on above: Order Comment: Speci men Type: BLOOD SPECIMENOrdering Facility: [facility] Address: [address] [place] [address] Performed By: #### 2 4321-2 ####[facility]ATORYCLIA [id number] [place] [address] [place] Chloride [Moles/Vol] 111 mmol/L High 97-105 [facility] Comment on above: Order Comment: Speci men Type: BLOOD SPECIMENOrdering Facility: [facility] Address: [address] [place] [address] Performed By: #### 2 4321-2 ####[facility]ATORYCLIA [id number] [place] [address] [place] CO2 [Moles/Vol] 24 mmol/L Normal 22-30 [facility] Comment on above: Order Comment: Speci men Type: BLOOD SPECIMENOrdering Facility: [facility] Address: [address] [place] [address] Performed By: #### 2 4321-2 ####[facility]ATORYCLIA [id number] [place] [address] [place] Creatinine [Mass/Vol] 0.71 mg/dL Low 0.73-1.22 [facility] Comment on above: Order Comment: Speci men Type: BLOOD SPECIMENOrdering Facility: [facility] Address: [address] [place] [address] Performed By: #### 2 4321-2 ####[facility]ORATORYCLIA [id number] [place] [address] [place] GFR/1.73 sq M.predicted MDRD (S/P/Bld) [Vol rate/Area] mL/min/{1.73_m2} Normal [facility] Comment on above: Order Comment: Shira feldman Type: BLOOD SPECIMENOrdering Facility: [facility] Address: [address] [place] [address] Result Comment: >60e GFR (Estimated GFR) Units [...] #### 2 4321-2 ####[facility]ITALCL[facility] [id number] [place] [address] [place] Glucose [Mass/Vol] 110 mg/dL High 74-99 [facility] Comment on above: Order Comment: Shira feldman Type: BLOOD SPECIMENOrdering Facility: [facility] Address: [address] [place] [address] Result Comment: The [place] Diabetes Association (ADA) provides guidance for cutoff [...] Standards of Medical Care in Diabetes 2016, [place] Diabetes Association. Diabetes Care. 2016.39(Suppl 1). Performed By: #### 2 4321-2 ####[facility]ATORYCLIA [id number] [address] [place] Potassium [Moles/Vol] 3.7 mmol/L Normal 3.7-5.1 [facility] Comment on above: Order Comment: Speci men Type: BLOOD SPECIMENOrdering Facility: [facility] Address: [address] [place] [address] Performed By: #### 2 4321-2 ####[facility]ATORYCLIA [id number] [address] [place] Sodium [Moles/Vol] 142 mmol/L Normal 136-144 [facility] Comment on above: Order Comment: Speci men Type: BLOOD SPECIMENOrdering Facility: [facility] Address: [address] [place] [address] Performed By: #### 2 4321-2 ####[facility]ATORYCLIA [id number] [address] STATES [facility] Urea nitrogen [Mass/Vol] 26 mg/dL High 9-24 [facility] Comment on above: Order Comment: Speci men Type: BLOOD SPECIMENOrdering Facility: [facility] Address: [address] [place] [address] Performed By: #### 2 4321-2 ####[facility]ATORYCLIA [id number] [address] STATES OF [facility] CBC panel Auto (Bld)on 06-19 Erythrocyte distribution width (RBC) [Ratio] 15.7 % High 11.5-15.0 [facility] Comment on above: Order Comment: Speci men Type: BLOOD SPECIMENOrdering Facility: [facility] Address: [address] [place] [address] Performed By: #### 5 8410-2 ####[facility]ATORYCLIA [id number] [address] Hematocrit (Bld) [Volume fraction] 30.9 % Low 39.0-51.0 [facility] Comment on above: Order Comment: Speci men Type: BLOOD SPECIMENOrdering Facility: [facility] Address: [address] [place] [address] Performed By: #### 5 8410-2 ####[facility]ATORYCLIA [id number] [address] OF [facility] Hemoglobin (Bld) [Mass/Vol] 9.5 g/dL Low 13.0-17.0 [facility] Comment on above: Order Comment: Speci men Type: BLOOD SPECIMENOrdering Facility: [facility] Address: [address] [place] [address] Performed By: #### 5 8410-2 ####[facility]ATORYCLIA [id number] [address] MCH (RBC) [Entitic mass] 28.4 pg Normal 26.0-34.0 [facility] Comment on above: Order Comment: Speci men Type: BLOOD SPECIMENOrdering Facility: [facility] Address: [address] [place] [address] Performed By: #### 5 8410-2 ####[facility]ATORYCLIA [id number] [address] STATES OF [facility] MCHC (RBC) [Mass/Vol] 30.7 g/dL Normal 30.5-36.0 [facility] Comment on above: Order Comment: Speci men Type: BLOOD SPECIMENOrdering Facility: [facility] Address: [address] [place] [address] Performed By: #### 5 8410-2 ####[facility] LABORATORYCLIA [id number] [address] STATES [facility] MCV (RBC) [Entitic vol] 92.2 fL Normal 80.0-100.0 [facility] Comment on above: Order Comment: Speci men Type: BLOOD SPECIMENOrdering Facility: [facility] Address: [address] [place] [address] Performed By: #### 5 8410-2 ####[facility] LABORATORYCLIA [id number] [address] Nucleated RBC (Bld) [#/Vol] 10*3/uL Normal <0.01 [facility] Comment on above: Order Comment: Speci men Type: BLOOD SPECIMENOrdering Facility: [facility] Address: [address] [place] [address] Performed By: #### 5 8410-2 ####[facility] LABORATORYCLIA [id number] [place] [address] [place] Platelet mean volume (Bld) [Entitic vol] 11.7 fL Normal 9.0-12.7 [facility] Comment on above: Order Comment: Speci men Type: BLOOD SPECIMENOrdering Facility: [facility] Address: [address] [place] [address] Performed By: #### 5 8410-2 ####[facility] LABORATORYCLIA [id number] [address] [place] Platelets (Bld) [#/Vol] 323 10*3/uL Normal 150-400 [facility] Comment on above: Order Comment: Speci men Type: BLOOD SPECIMENOrdering Facility: [facility] Address: [address] [place] [address] Performed By: #### 5 8410-2 ####[facility] LABORATORYCLIA [id number] [place] [address] [place] RBC (Bld) [#/Vol] 3.35 10*6/uL Low 4.20-6.00 [facility] Comment on above: Order Comment: Speci men Type: BLOOD SPECIMENOrdering Facility: [facility] Address: [address] [place], [place] [address] Performed By: #### 5 8410-2 ####[facility] LABORATORYCLIA [id number] [address] [place] WBC (Bld) [#/Vol] 9.53 10*3/uL Normal 3.70-11.00 [facility] Comment on above: Order Comment: Speci men Type: BLOOD SPECIMENOrdering Facility: [facility] Address: [address] [place] [address] Performed By: #### 5 8410-2 ####[facility] LABORATORYCLIA [id number] [address] HEMOGLOBIN (HGB)on Hemoglobin (Bld) [Mass/Vol] 9.7 g/dL Low 13.0-17.0 [facility] Comment on above: Order Comment: Speci men Type: BLOOD SPECIMENOrdering Facility: [facility] Address: [address] [place] [address] Performed By: #### H GB ####[facility]ORATORYCLIA [id number] [address] Magnesium SerPl-mCncon 06-19 Magnesium [Mass/Vol] 2.5 mg/dL High 1.7-2.3 [facility] Comment on above: Order Comment: Speci men Type: BLOOD SPECIMENOrdering Facility: [facility] Address: [address] [place] [address] Performed By: #### 1 9123-9, 2777-1 ####[facility] LABORATORYCLIA [id number] [address] NURSING PROGon 06-19-2021 NURSING PROG Normal [facility] Phosphate SerPl-mCncon 06-19 Phosphate [Mass/Vol] 2.6 mg/dL Low 2.7-4.8 [facility] Comment on above: Order Comment: Speci men Type: BLOOD SPECIMENOrdering Facility: [facility] Address: [address] [place] [address] Performed By: #### 1 9123-9, 2777-1 ####[facility] LABORATORYCLIA [id number] [address] aPTT PPPon 06-19-2021 aPTT Coag (PPP) [Time] 61.9 s High 23.0-32.[address] [facility] Comment on above: Order Comment: Speci men Type: BLOOD SPECIMENOrdering Facility: [facility] Address: [address] [address] Performed By: #### 1 4979-9 ####[facility] LABORATORYCLIA [id number] [address] aPTT Coag (PPP) [Time] 68.6 s High 23.0-32.[address] [facility] Comment on above: Order Comment: Speci men Type: BLOOD SPECIMENOrdering Facility: [facility] Address: [address] [place] [address] Performed By: #### 1 4979-9 ####[facility] LABORATORYCLIA [id number] [address] STATES OF [facility] aPTT Coag (PPP) [Time] 83.2 s High 23.0-32.[address] [facility] Comment on above: Order Comment: Speci men Type: BLOOD SPECIMENOrdering Facility: [facility] Address: [address] [place] [address] Performed By: #### 1 4979-9 ####[facility] LABORATORYCLIA [id number] [place] [address] [place] Basic metabolic 2000 panelon 06-18-2021 Anion gap [Moles/Vol] 7 mmol/L Low 9-18 [facility] Comment on above: Order Comment: Speci men Type: BLOOD SPECIMENOrdering Facility: [facility] Address: [address] [place] [address] Performed By: #### 2 4321-2, , 2776-05 ####[facility]ORATORYCLIA [id number] [address] [place] Calcium [Mass/Vol] 8.2 mg/dL Low 8.5-10.2 [facility] Comment on above: Order Comment: Speci men Type: BLOOD SPECIMENOrdering Facility: [facility] Address: [address] [place] [address] Performed By: #### 2 4321-2, , 27711-04 ####[facility] LABORATORYCLIA [id number] [place] [address] [place] Chloride [Moles/Vol] 115 mmol/L High 97-105 [facility] Comment on above: Order Comment: Speci men Type: BLOOD SPECIMENOrdering Facility: [facility] Address: [address] [place] [address] Performed By: #### 2 4321-2, 90942-6, 2776- ####[facility]ORATORYCLIA [id number] [address] [place] CO2 [Moles/Vol] 23 mmol/L Normal 22-30 [facility] Comment on above: Order Comment: Speci men Type: BLOOD SPECIMENOrdering Facility: [facility] Address: [address] [place] [address] Performed By: #### 2 4321-2, , 2776-05 ####[facility] [id number] [address] [place] Creatinine [Mass/Vol] 0.70 mg/dL Low 0.73-1.22 [facility] Comment on above: Order Comment: Speci men Type: BLOOD SPECIMENOrdering Facility: [facility] Address: [address] [place] [address] Performed By: #### 2 4321-2, , 2776-05 ####[facility] LABORATORYCLIA [id number] [place] [address] [place] GFR/1.73 sq M.predicted MDRD (S/P/Bld) [Vol rate/Area] mL/min/{1.73_m2} Normal [facility] Comment on above: Order Comment: Speci men Type: BLOOD SPECIMENOrdering Facility: [facility] Address: [address] [place] [address] Result Comment: >60e GFR (Estimated GFR) Units [...] 2776-05 ####[facility] LABORATORYCLIA [id number] [place] [address] [place] Glucose [Mass/Vol] 105 mg/dL High 74-99 [facility] Comment on above: Order Comment: Shira feldman Type: BLOOD SPECIMENOrdering Facility: [facility] Address: [address] [place], [place] [address] Result Comment: The [place] Diabetes Association (ADA) provides guidance for cutoff [...] Standards of Medical Care in Diabetes 2016, [place] [employer] Association. Diabetes Care. 2016.39(Suppl 1). Performed By: #### 2 4321-2, , 2776-05 ####[facility] LABORATORYCLIA [id number] [place] [address] [place] Potassium [Moles/Vol] 4.1 mmol/L Normal 3.7-5.1 [facility] Comment on above: Order Comment: Shira feldman Type: BLOOD SPECIMENOrdering Facility: [facility] Address: [address] [place] [address] Performed By: #### 2 4321-2, , 2776-05 ####[facility] LABORATORYCLIA [id number] [place] [address] [place] Sodium [Moles/Vol] 145 mmol/L High 136-144 [facility] Comment on above: Order Comment: Speci men Type: BLOOD SPECIMENOrdering Facility: [facility] Address: [address] [place] [address] Performed By: #### 2 4321-2, 83363-4, 2776- ####[facility]ORATORYCLIA [id number] [address] [place] Urea nitrogen [Mass/Vol] 27 mg/dL High 9-24 [facility] Comment on above: Order Comment: Speci men Type: BLOOD SPECIMENOrdering Facility: [facility] Address: [address] [place] [address] Performed By: #### 2 4321-2, , 2776-05 ####[facility] LABORATORYCLIA [id number] [address] STATES OF [facility] CALCIUM IONIZED Bon 06-18-19 Calcium.ionized (BldV) [Mass/Vol] 1.22 mmol/L Normal 1.08-1.30 [facility] Comment on above: Order Comment: Speci men Type: BLOOD SPECIMENOrdering Facility: [facility] Address: [address] [place] [address] Performed By: #### I CA ####[facility] LABORATORYCLIA [id number] [address] Calcium.ionized adjusted to pH 7.4 (Bld) [Moles/Vol] 1.23 mmol/L Normal 1.08-1.30 [facility] Comment on above: Order Comment: Speci men Type: BLOOD SPECIMENOrdering Facility: [facility] Address: [address] [place] [address] Performed By: #### I CA ####[facility]ORATORYCLIA [id number] [address] [place] CBC panel Auto (Bld)on 06-18 Erythrocyte distribution width (RBC) [Ratio] 15.8 % High 11.5-15.0 [facility] Comment on above: Order Comment: Speci men Type: BLOOD SPECIMENOrdering Facility: [facility] Address: [address] [place] [address] Performed By: #### 5 8410-2 ####[facility]ORATORYCLIA [id number] [address] Hematocrit (Bld) [Volume fraction] 29.5 % Low 39.0-51.0 [facility] Comment on above: Order Comment: Speci men Type: BLOOD SPECIMENOrdering Facility: [facility] Address: [address] [place] [address] Performed By: #### 5 8410-2 ####[facility]ORATORYCLIA [id number] [address] Hemoglobin (Bld) [Mass/Vol] 8.8 g/dL Low 13.0-17.0 [facility] Comment on above: Order Comment: Speci men Type: BLOOD SPECIMENOrdering Facility: [facility] Address: [address] [place] [address] Performed By: #### 5 8410-2 ####[facility] LABORATORYCLIA [id number] [address] MCH (RBC) [Entitic mass] 27.4 pg Normal 26.0-34.0 [facility] Comment on above: Order Comment: Speci men Type: BLOOD SPECIMENOrdering Facility: [facility] Address: [address] [place] [address] Performed By: #### 5 8410-2 ####[facility]ORATORYCLIA [id number] [address] [place] MCHC (RBC) [Mass/Vol] 29.8 g/dL Low 30.5-36.0 [facility] Comment on above: Order Comment: Speci men Type: BLOOD SPECIMENOrdering Facility: [facility] Address: [address] [place] [address] Performed By: #### 5 8410-2 ####[facility] LABORATORYCLIA [id number] [address] STATES OF [facility] MCV (RBC) [Entitic vol] 91.9 fL Normal 80.0-100.0 [facility] Comment on above: Order Comment: Speci men Type: BLOOD SPECIMENOrdering Facility: [facility] Address: [address] [place] [address] Performed By: #### 5 8410-2 ####[facility]ORATORYCLIA [id number] [address] Nucleated RBC (Bld) [#/Vol] 10*3/uL Normal <0.01 [facility] Comment on above: Order Comment: Speci men Type: BLOOD SPECIMENOrdering Facility: [facility] Address: [address] [place] [address] Performed By: #### 5 8410-2 ####[facility]ORATORYCLIA [id number] [address] Platelet mean volume (Bld) [Entitic vol] 11.9 fL Normal 9.0-12.7 [facility] Comment on above: Order Comment: Speci men Type: BLOOD SPECIMENOrdering Facility: [facility] Address: [address] [place] [address] Performed By: #### 5 8410-2 ####[facility]ORATORYCLIA [id number] [address] Platelets (Bld) [#/Vol] 291 10*3/uL Normal 150-400 [facility] Comment on above: Order Comment: Speci men Type: BLOOD SPECIMENOrdering Facility: [facility] Address: [address] [place] [address] Performed By: #### 5 8410-2 ####[facility]ORATORYCLIA [id number] [address] [place] RBC (Bld) [#/Vol] 3.21 10*6/uL Low 4.20-6.00 [facility] Comment on above: Order Comment: Speci men Type: BLOOD SPECIMENOrdering Facility: [facility] Address: [address] [place] [address] Performed By: #### 5 8410-2 ####[facility]ORATORYCLIA [id number] [address] WBC (Bld) [#/Vol] 10.19 10*3/uL Normal 3.70-11.00 [facility] Comment on above: Order Comment: Speci men Type: BLOOD SPECIMENOrdering Facility: [facility] Address: [address] [place] [address] Performed By: #### 5 8410-2 ####[facility]ORATORYCLIA [id number] [address] FERRITIN BLDon 06-18-2021 Ferritin [Mass/Vol] 600.9 ng/mL High 30.3-565.7 [facility] Comment on above: Order Comment: Speci men Type: BLOOD SPECIMENOrdering Facility: [facility] Address: [address] [place] [address] Performed By: #### S ERFOL, IRON, FERR ####[facility]ORATORYCLIA [id number] [address] FOLATE SERUMon 06-18-2021 Folate [Mass/Vol] 14.3 ng/mL Normal >4.7 [facility] Comment on above: Order Comment: Speci men Type: BLOOD SPECIMENOrdering Facility: [facility] Address: [address] [place] [address] Performed By: #### S ERFOL, IRON, FERR ####[facility]ORATORYCLIA [id number] [address] Gas and Carbon monoxide pane l (BldV)on 06-18-2021 Base excess Calc (BldV) [Moles/Vol] 0.5 mmol/L Normal 0-2 [facility] Comment on above: Order Comment: Speci men Type: VENOUS BLOOD SPECIMENOrdering Facility: [facility] Address: [address] [place] [address] Performed By: #### 2 4344-4 ####[facility]ORATORYCLIA [id number] [address] Body temperature 97.34 [degF] Normal [facility] Comment on above: Order Comment: Speci men Type: VENOUS BLOOD SPECIMENOrdering Facility: [facility] Address: [address] [place] [address] Performed By: #### 2 4344-4 ####[facility]ORATORYCLIA [id number] [address] CALCIUM IONIZED, PH CORRECTED 1.26 mmol/L Normal 1.08-1.30 [facility] Comment on above: Order Comment: Speci men Type: VENOUS BLOOD SPECIMENOrdering Facility: [facility] Address: [address] [place] [address] Performed By: #### 2 4344-4 ####[facility]ORATORYCLIA [id number] [address] Calcium.ionized (BldV) [Mass/Vol] 1.25 mmol/L Normal 1.08-1.30 [facility] Comment on above: Order Comment: Speci men Type: VENOUS BLOOD SPECIMENOrdering Facility: [facility] Address: [address] [place] [address] Performed By: #### 2 4344-4 ####[facility] LABORATORYCLIA [id number] [address] OF [facility] Carboxyhemoglobin (BldV) [Mass fraction] 1.5 % Normal 0.0-2.0 [facility] Comment on above: Order Comment: Speci men Type: VENOUS BLOOD SPECIMENOrdering Facility: [facility] Address: [address] [place] [address] Result Comment: Carb oxyhemoglobin Reference Range for Smokers: 2.0-8.0% Performed By: #### 2 4344-4 ####[facility] LABORATORYCLIA [id number] [place] [address] [place] CO2 (BldV) [Partial pressure] 38 mm[Hg] Low 42-55 [facility] Comment on above: Order Comment: Speci men Type: VENOUS BLOOD SPECIMENOrdering Facility: [facility] Address: [address] [place] [address] Performed By: #### 2 4344-4 ####[facility] LABORATORYCLIA [id number] [place] [address] [place] CO2 [Moles/Vol] 22.9 mmol/L Low 25-29 [facility] Comment on above: Order Comment: Speci men Type: VENOUS BLOOD SPECIMENOrdering Facility: [facility] Address: [address] [place] [address] Performed By: #### 2 4344-4 ####[facility]ORATORYCLIA [id number] [address] [place] CO2 adjusted to patient's actual temperature (BldV) [Partial pressure] 37 mmHg Low 42-55 [facility] Comment on above: Order Comment: Speci men Type: VENOUS BLOOD SPECIMENOrdering Facility: [facility] Address: [address] [place] [address] Performed By: #### 2 4344-4 ####[facility]ORATORYCLIA [id number] [place] [address] [place] Glucose [Mass/Vol] 103 mg/dL Normal 60-105 [facility] Comment on above: Order Comment: Speci men Type: VENOUS BLOOD SPECIMENOrdering Facility: [facility] Address: [address] [place] [address] Performed By: #### 2 4344-4 ####[facility]ORATORYCLIA [id number] [place] [address] [place] HCO3 (Bld) [Moles/Vol] 24.4 mmol/L Normal 24-28 [facility] Comment on above: Order Comment: Speci men Type: VENOUS BLOOD SPECIMENOrdering Facility: [facility] Address: [address] [place] [address] Performed By: #### 2 4344-4 ####[facility] LABORATORYCLIA [id number] [address] OF [place] Hematocrit (Bld) [Volume fraction] 28.7 % Low 39.0-51.0 [facility] Comment on above: Order Comment: Speci men Type: VENOUS BLOOD SPECIMENOrdering Facility: [facility] Address: [address] [place] [address] Performed By: #### 2 4344-4 ####[facility]ORATORYCLIA [id number] [address] OF [place] Hemoglobin (Bld) [Mass/Vol] 9.3 g/dL Low 13.0-17.0 [facility] Comment on above: Order Comment: Speci men Type: VENOUS BLOOD SPECIMENOrdering Facility: [facility] Address: [address] [place] [address] Performed By: #### 2 4344-4 ####[facility] LABORATORYCLIA [id number] [address] Methemoglobin (Bld) [Mass fraction] % Normal 0.0-1.5 [facility] Comment on above: Order Comment: Speci men Type: VENOUS BLOOD SPECIMENOrdering Facility: [facility] Address: [address] [place] [address] Performed By: #### 2 4344-4 ####[facility] LABORATORYCLIA [id number] [address] OF [place] O2 THERAPY Ventilator Normal [facility] Comment on above: Order Comment: Speci men Type: VENOUS BLOOD SPECIMENOrdering Facility: [facility] Address: [address] [place] [address] Performed By: #### 2 4344-4 ####[facility] LABORATORYCLIA [id number] [address] Oxygen (BldV) [Partial pressure] 37 mm[Hg] Normal 35-45 [facility] Comment on above: Order Comment: Speci men Type: VENOUS BLOOD SPECIMENOrdering Facility: [facility] Address: [address] [address] Performed By: #### 2 4344-4 ####[facility]ORATORYCLIA [id number] [address] OF [facility] Oxygen adjusted to patient's actual temperature (BldV) [Partial pressure] 35.1 mmHg Normal 35-45 [facility] Comment on above: Order Comment: Speci men Type: VENOUS BLOOD SPECIMENOrdering Facility: [facility] Address: [address] [place] [address] Performed By: #### 2 4344-4 ####[facility] LABORATORYCLIA [id number] [address] Oxygen saturation in Blood 67.1 % Normal 60-85 [facility] Comment on above: Order Comment: Speci men Type: VENOUS BLOOD SPECIMENOrdering Facility: [facility] Address: [address] [place] [address] Performed By: #### 2 4344-4 ####[facility]ORATORYCLIA [id number] [address] Oxyhemoglobin (BldV) [Mass fraction] 66 % Normal 60-85 [facility] Comment on above: Order Comment: Speci men Type: VENOUS BLOOD SPECIMENOrdering Facility: [facility] Address: [address] [place] [address] Performed By: #### 2 4344-4 ####[facility] LABORATORYCLIA [id number] [address] [place] pH (BldV) 7.42 [pH] Normal 7.32-7.42 [facility] Comment on above: Order Comment: Speci men Type: VENOUS BLOOD SPECIMENOrdering Facility: [facility] Address: [address] [place] [address] Performed By: #### 2 4344-4 ####[facility] LABORATORYCLIA [id number] [address] [place] pH adjusted to patient's actual temperature (BldV) 7.43 High 7.32-7.42 [facility] Comment on above: Order Comment: Speci men Type: VENOUS BLOOD SPECIMENOrdering Facility: [facility] Address: [address] [place] [address] Performed By: #### 2 4344-4 ####[facility]ORATORYCLIA [id number] [address] [place] Potassium [Moles/Vol] 4.0 mmol/L Normal 3.5-5.0 [facility] Comment on above: Order Comment: Speci men Type: VENOUS BLOOD SPECIMENOrdering Facility: [facility] Address: [address] [place] [address] Performed By: #### 2 4344-4 ####[facility] LABORATORYCLIA [id number] [address] STATES OF [facility] Sodium [Moles/Vol] 146 mmol/L High 136-144 [facility] Comment on above: Order Comment: Speci men Type: VENOUS BLOOD SPECIMENOrdering Facility: [facility] Address: [address] [place] [address] Performed By: #### 2 4344-4 ####[facility]ORATORYCLIA [id number] [address] [place] HEMOGLOBIN (HGB)on Hemoglobin (Bld) [Mass/Vol] 9.2 g/dL Low 13.0-17.0 [facility] Comment on above: Order Comment: Speci men Type: BLOOD SPECIMENOrdering Facility: [facility] Address: [address] [place] [address] Performed By: #### H GB ####[facility] LABORATORYCLIA [id number] [address] OF [place] IRON + TIBCon 06-18-2021 Iron [Mass/Vol] 27 ug/dL Low 41-186 [facility] Comment on above: Order Comment: Speci men Type: BLOOD SPECIMENOrdering Facility: [facility] Address: [address] [place] [address] Performed By: #### S ERFOL, IRON, FERR ####[facility]ORATORYCLIA [id number] [address] Iron binding capacity [Mass/Vol] 141 ug/dL Low 232-386 [facility] Comment on above: Order Comment: Speci men Type: BLOOD SPECIMENOrdering Facility: [facility] Address: [address] [place] [address] Performed By: #### S ERFOL, IRON, FERR ####[facility] LABORATORYCLIA [id number] [address] Iron saturation [Mass fraction] 19 % Normal 15-57 [facility] Comment on above: Order Comment: Speci men Type: BLOOD SPECIMENOrdering Facility: [facility] Address: [address] [place] [address] Performed By: #### S ERFOL, IRON, FERR ####[facility] LABORATORYCLIA [id number] [address] Magnesium SerPl-mCncon 06-18 Magnesium [Mass/Vol] 2.5 mg/dL High 1.7-2.3 [facility] Comment on above: Order Comment: Speci men Type: BLOOD SPECIMENOrdering Facility: [facility] Address: [address] [place] [address] Performed By: #### 2 4321-2, , 2776-05 ####[facility] LABORATORYCLIA [id number] [address] [place] NURSING PROGon 06-18-2021 NURSING PROG Normal [facility] Phosphate SerPl-mCncon 06-18 Phosphate [Mass/Vol] 3.0 mg/dL Normal 2.7-4.8 [facility] Comment on above: Order Comment: Speci men Type: BLOOD SPECIMENOrdering Facility: [facility] Address: [address] [place] [address] Performed By: #### 2 4321-2, , 2776-05 ####[facility] LABORATORYCLIA [id number] [address] [place] THERAPY NTon 06-18-2021 THERAPY NT Normal [facility] aPTT PPPon 06-18-2021 aPTT Coag (PPP) [Time] 43.0 s High 23.0-32.[address] [facility] Comment on above: Order Comment: Speci men Type: BLOOD SPECIMENOrdering Facility: [facility] Address: [address] [place] [address] Performed By: #### 1 4979-9 ####[facility] LABORATORYCLIA [id number] [address] aPTT Coag (PPP) [Time] 60.6 s High 23.0-32.[address] [facility] Comment on above: Order Comment: Speci men Type: BLOOD SPECIMENOrdering Facility: [facility] Address: [address] [place] [address] Performed By: #### 1 4979-9 ####[facility]ITAL[facility] [id number] [address] aPTT Coag (PPP) [Time] 46.4 s High 23.0-32.[address] [facility] Comment on above: Order Comment: Speci men Type: BLOOD SPECIMENOrdering Facility: [facility] Address: [address] [place] [address] Performed By: #### 1 4979-9 ####[facility] LABORATORYCLIA [id number] [address] OF [facility] Basic metabolic 2000 panelon 06-17-2021 Anion gap [Moles/Vol] 7 mmol/L Low 9-18 [facility] Comment on above: Order Comment: Speci men Type: BLOOD SPECIMENOrdering Facility: [facility] Address: [address] [place] [address] Performed By: #### 2 951-2, 72018-8, 2777-1, 84351-3 ####[facility]ORATORYCLIA [id number] [place] [address] [place] Calcium [Mass/Vol] 8.1 mg/dL Low 8.5-10.2 [facility] Comment on above: Order Comment: Speci men Type: BLOOD SPECIMENOrdering Facility: [facility] Address: [address] [place] [address] Performed By: #### 2 951-2, 20158-8, 2776-1, 90097-2 ####[facility]ORATORYCLIA [id number] [place] [address] [place] Chloride [Moles/Vol] 113 mmol/L High 97-105 [facility] Comment on above: Order Comment: Speci men Type: BLOOD SPECIMENOrdering Facility: [facility] Address: [address] [place] [address] Performed By: #### 2 951-2, , 2776-05, 59862-6 ####[facility]ATORYCLIA [id number] [place] [address] [place] CO2 [Moles/Vol] 25 mmol/L Normal 22-30 [facility] Comment on above: Order Comment: Speci men Type: BLOOD SPECIMENOrdering Facility: [facility] Address: [address] [place] [address] Performed By: #### 2 951-2, , 2776-05, 94571-9 ####[facility]ORATORYCLIA [id number] [place] [address] [place] Creatinine [Mass/Vol] 0.70 mg/dL Low 0.73-1.22 [facility] Comment on above: Order Comment: Speci men Type: BLOOD SPECIMENOrdering Facility: [facility] Address: [address] [place] [address] Performed By: #### 2 951-2, , 2776-05, 57875-3 ####[facility]ATORYCLIA [id number] [place] [address] [place] GFR/1.73 sq M.predicted MDRD (S/P/Bld) [Vol rate/Area] mL/min/{1.73_m2} Normal [facility] Comment on above: Order Comment: Shira feldman Type: BLOOD SPECIMENOrdering Facility: [facility] Address: [address] [place], [place] [address] Result Comment: >60e GFR (Estimated GFR) Units [...] actual GFR. Performed By: #### 2 951-2, 71128-7, 2777-1, 25671-8 ####[facility]ORATORYCLIA [id number] [place] [address] [place] Glucose [Mass/Vol] 122 mg/dL High 74-99 [facility] Comment on above: Order Comment: Shira feldman Type: BLOOD SPECIMENOrdering Facility: [facility] Address: [address] [place], [place] [address] Result Comment: The [place] Diabetes Association (ADA) provides guidance for cutoff [...] Standards of Medical Care in Diabetes 2016, [place] Diabetes Association. Diabetes Care. 2016.39(Suppl 1). Performed By: #### 2 951-2, 67579-6, 2777-1, 41391-1 ####[facility] LABORATORYCLIA [id number] [address] STATES OF [facility] Potassium [Moles/Vol] 3.5 mmol/L Low 3.7-5.1 [facility] Comment on above: Order Comment: Speci men Type: BLOOD SPECIMENOrdering Facility: [facility] Address: [address] [place] [address] Performed By: #### 2 951-2, 27562-5, 2777-1, 17866-1 ####[facility]ORATORYCLIA [id number] [address] [place] Urea nitrogen [Mass/Vol] 27 mg/dL High 9- [facility] Comment on above: Order Comment: Speci men Type: BLOOD SPECIMENOrdering Facility: [facility] Address: [address] [place] [address] Performed By: #### 2 951-2, 23279-7, 2777-1, 75271-5 ####[facility]ITALCLIA [id number] [address] OF [facility] CASE MANAGEMon 06-17-2021 CASE MANAGEM Normal [facility] CBC panel Auto (Bld)on 06-17 Erythrocyte distribution width (RBC) [Ratio] 15.9 % High 11.5-15.0 [facility] Comment on above: Order Comment: Speci men Type: BLOOD SPECIMENOrdering Facility: [facility] Address: [address] [place] [address] Performed By: #### 5 8410-2 ####[facility]ORATORYCLIA [id number] [address] Hematocrit (Bld) [Volume fraction] 28.9 % Low 39.0-51.0 [facility] Comment on above: Order Comment: Speci men Type: BLOOD SPECIMENOrdering Facility: [facility] Address: [address] [place] [address] Performed By: #### 5 8410-2 ####[facility]ORATORYCLIA [id number] [address] Hemoglobin (Bld) [Mass/Vol] 8.8 g/dL Low 13.0-17.0 [facility] Comment on above: Order Comment: Speci men Type: BLOOD SPECIMENOrdering Facility: [facility] Address: [address] [place] [address] Performed By: #### 5 8410-2 ####[facility]ORATORYCLIA [id number] [address] MCH (RBC) [Entitic mass] 28.4 pg Normal 26.0-34.0 [facility] Comment on above: Order Comment: Speci men Type: BLOOD SPECIMENOrdering Facility: [facility] Address: [address] [place] [address] Performed By: #### 5 8410-2 ####[facility]ORATORYCLIA [id number] [address] MCHC (RBC) [Mass/Vol] 30.4 g/dL Low 30.5-36.0 [facility] Comment on above: Order Comment: Speci men Type: BLOOD SPECIMENOrdering Facility: [facility] Address: [address] [place] [address] Performed By: #### 5 8410-2 ####[facility]ORATORYCLIA [id number] [address] MCV (RBC) [Entitic vol] 93.2 fL Normal 80.0-100.0 [facility] Comment on above: Order Comment: Speci men Type: BLOOD SPECIMENOrdering Facility: [facility] Address: [address] [place] [address] Performed By: #### 5 8410-2 ####[facility]ORATORYCLIA [id number] [address] Nucleated RBC (Bld) [#/Vol] 10*3/uL Normal <0.01 [facility] Comment on above: Order Comment: Speci men Type: BLOOD SPECIMENOrdering Facility: [facility] Address: [address] Performed By: #### 5 8410-2 ####[facility]ORATORYCLIA [id number] [address] Platelet mean volume (Bld) [Entitic vol] 11.9 fL Normal 9.0-12.7 [facility] Comment on above: Order Comment: Speci men Type: BLOOD SPECIMENOrdering Facility: [facility] Address: [address] [place] [address] Performed By: #### 5 8410-2 ####[facility]ORATORYCLIA [id number] [address] OF [facility] Platelets (Bld) [#/Vol] 257 10*3/uL Normal 150-400 [facility] Comment on above: Order Comment: Speci men Type: BLOOD SPECIMENOrdering Facility: [facility] Address: [address] [place] [address] Performed By: #### 5 8410-2 ####[facility] LABORATORYCLIA [id number] [address] [place] RBC (Bld) [#/Vol] 3.10 10*6/uL Low 4.20-6.00 [facility] Comment on above: Order Comment: Speci men Type: BLOOD SPECIMENOrdering Facility: [facility] Address: [address] [place] [address] Performed By: #### 5 8410-2 ####[facility]ORATORYCLIA [id number] [address] OF [place] WBC (Bld) [#/Vol] 10.54 10*3/uL Normal 3.70-11.00 [facility] Comment on above: Order Comment: Speci men Type: BLOOD SPECIMENOrdering Facility: [facility] Address: [address] [place] [address] Performed By: #### 5 8410-2 ####[facility]ORATORYCLIA [id number] [address] HEMOGLOBIN (HGB)on Hemoglobin (Bld) [Mass/Vol] 8.8 g/dL Low 13.0-17.0 [facility] Comment on above: Order Comment: Speci men Type: BLOOD SPECIMENOrdering Facility: [facility] Address: [address] [place] [address] Performed By: #### H GB ####[facility] LABORATORYCLIA [id number] [address] OF [facility] Magnesium SerPl-mCncon 06-17 Magnesium [Mass/Vol] 2.5 mg/dL High 1.7-2.3 [facility] Comment on above: Order Comment: Speci men Type: BLOOD SPECIMENOrdering Facility: [facility] Address: [address] [place] [address] Performed By: #### 2 951-2, 46332-8, 2777-1, 05728-5 ####[facility]ORATORYCLIA [id number] [address] NURSING PROGon 06-17-2021 NURSING PROG Normal [facility] NURSING PROG Normal [facility] NURSING PROG Normal [facility] Phosphate SerPl-mCncon 06-17 Phosphate [Mass/Vol] 1.9 mg/dL Low 2.7-4.8 [facility] Comment on above: Order Comment: Speci men Type: BLOOD SPECIMENOrdering Facility: [facility] Address: [address] [place] [address] Performed By: #### 2 951-2, 45345-8, 2777-1, 43129-9 ####[facility]ORATORYCLIA [id number] [address] OF [facility] Sodium SerPl-sCncon 06-17-19 22 Sodium [Moles/Vol] 144 mmol/L Normal 136-144 [facility] Comment on above: Order Comment: Speci men Type: BLOOD SPECIMENOrdering Facility: [facility] Address: [address] [place] [address] Performed By: #### 2 951-2 ####[facility] LABORATORYCLIA [id number] [address] STATES OF [facility] Sodium [Moles/Vol] 145 mmol/L High 136-144 [facility] Comment on above: Order Comment: Speci men Type: BLOOD SPECIMENOrdering Facility: [facility] Address: [address] [place] [address] Performed By: #### 2 951-2, 44098-0, 2777-1, 35401-6 ####[facility]ORATORYCLIA [id number] [place] [address] [place] aPTT PPPon 06-17-2021 aPTT Coag (PPP) [Time] 55.8 s High 23.0-32.[address] [facility] Comment on above: Order Comment: Speci men Type: BLOOD SPECIMENOrdering Facility: [facility] Address: [address] [place] [address] Performed By: #### 1 4979-9 ####[facility]ORATORYCLIA [id number] [address] [place] ARTERIAL BLOOD GASESon 06-16 Base excess Calc (Bld) [Moles/Vol] 3 mmol/L High 0-2 [facility] Comment on above: Order Comment: Speci men Type: ARTERIAL BLOOD SPECIMENOrdering Facility: [facility] Address: [address] [place] [address] Performed By: #### A LLBG ####[facility]ORATORYCLIA [id number] [address] [place] Body temperature 99.14 [degF] Normal [facility] Comment on above: Order Comment: Speci men Type: ARTERIAL BLOOD SPECIMENOrdering Facility: [facility] Address: [address] [place] [address] Performed By: #### A LLBG ####[facility]ORATORYCLIA [id number] [address] [place] CALCIUM IONIZED, PH CORRECTED 1.21 mmol/L Normal 1.08-1.30 [facility] Comment on above: Order Comment: Speci men Type: ARTERIAL BLOOD SPECIMENOrdering Facility: [facility] Address: [address] [place] [address] Performed By: #### A LLBG ####[facility] LABORATORYCLIA [id number] [place] [address] [place] Calcium.ionized (BldV) [Mass/Vol] 1.17 mmol/L Normal 1.08-1.30 [facility] Comment on above: Order Comment: Speci men Type: ARTERIAL BLOOD SPECIMENOrdering Facility: [facility] Address: [address] [place] [address] Performed By: #### A LLBG ####[facility] LABORATORYCLIA [id number] [address] [place] Carboxyhemoglobin (BldA) [Mass fraction] 1.4 % Normal 0.0-2.0 [facility] Comment on above: Order Comment: Speci men Type: ARTERIAL BLOOD SPECIMENOrdering Facility: [facility] Address: [address] [place] [address] Result Comment: Carb oxyhemoglobin Reference Range for Smokers: 2.0-8.0% Performed By: #### A LLBG ####[facility]ORATORYCLIA [id number] [place] [address] [place] CO2 (Bld) [Partial pressure] 38 mm Hg Normal 36-46 [facility] Comment on above: Order Comment: Speci men Type: ARTERIAL BLOOD SPECIMENOrdering Facility: [facility] Address: [address] [place] [address] Performed By: #### A LLBG ####[facility]ORATORYCLIA [id number] [place] [address] [place] CO2 [Moles/Vol] 24.5 mmol/L Normal 22-28 [facility] Comment on above: Order Comment: Speci men Type: ARTERIAL BLOOD SPECIMENOrdering Facility: [facility] Address: [address] [place] [address] Performed By: #### A LLBG ####[facility]ORATORYCLIA [id number] [address] CO2 adjusted to patient's actual temperature (Bld) [Partial pressure] 38 mmHg Normal 36-46 [facility] Comment on above: Order Comment: Speci men Type: ARTERIAL BLOOD SPECIMENOrdering Facility: [facility] Address: [address] [place] [address] Performed By: #### A LLBG ####[facility]ORATORYCLIA [id number] [address] [place] Glucose [Mass/Vol] 147 mg/dL High 60-105 [facility] Comment on above: Order Comment: Speci men Type: ARTERIAL BLOOD SPECIMENOrdering Facility: [facility] Address: [address] [place] [address] Performed By: #### A LLBG ####[facility]ORATORYCLIA [id number] [address] HCO3 (Bld) [Moles/Vol] 27 mmol/L High 22-[address] [facility] Comment on above: Order Comment: Speci men Type: ARTERIAL BLOOD SPECIMENOrdering Facility: [facility] Address: [address] [place] [address] Performed By: #### A LLBG ####[facility]ORATORYCLIA [id number] [address] [place] Hematocrit (Bld) [Volume fraction] 31.8 % Low 39.0-51.0 [facility] Comment on above: Order Comment: Speci men Type: ARTERIAL BLOOD SPECIMENOrdering Facility: [facility] Address: [address] [place] [address] Performed By: #### A LLBG ####[facility]ORATORYCLIA [id number] [address] [place] Hemoglobin (Bld) [Mass/Vol] 10.3 g/dL Low 13.0-17.0 [facility] Comment on above: Order Comment: Speci men Type: ARTERIAL BLOOD SPECIMENOrdering Facility: [facility] Address: [address] [place] [address] Performed By: #### A LLBG ####[facility]ATORYCLIA [id number] [address] Methemoglobin (Bld) [Mass fraction] 1.0 % Normal 0.0-1.5 [facility] Comment on above: Order Comment: Speci men Type: ARTERIAL BLOOD SPECIMENOrdering Facility: [facility] Address: [address] [place] [address] Performed By: #### A LLBG ####[facility]ORATORYCLIA [id number] [address] O2 THERAPY Ventilator Normal [facility] Comment on above: Order Comment: Speci men Type: ARTERIAL BLOOD SPECIMENOrdering Facility: [facility] Address: [address] [place] [address] Performed By: #### A LLBG ####[facility]ORATORYCLIA [id number] [address] Oxygen (Bld) [Partial pressure] 78 mm Hg Low 85-95 [facility] Comment on above: Order Comment: Speci men Type: ARTERIAL BLOOD SPECIMENOrdering Facility: [facility] Address: [address] [place] [address] Performed By: #### A LLBG ####[facility]ATORYCLIA [id number] [address] Oxygen adjusted to patient's actual temperature (Bld) [Partial pressure] 79.7 mmHg Low 85-95 [facility] Comment on above: Order Comment: Speci men Type: ARTERIAL BLOOD SPECIMENOrdering Facility: [facility] Address: [address] [place] [address] Performed By: #### A LLBG ####[facility]ATORYCLIA [id number] [address] [place] OXYGEN SATURATION, ARTERIAL 96 % Normal 95-98 [facility] Comment on above: Order Comment: Speci men Type: ARTERIAL BLOOD SPECIMENOrdering Facility: [facility] Address: [address] [place] [address] Performed By: #### A LLBG ####[facility]ORATORYCLIA [id number] [address] [place] Oxyhemoglobin (BldA) [Mass fraction] 94 % Low 95- [facility] Comment on above: Order Comment: Speci men Type: ARTERIAL BLOOD SPECIMENOrdering Facility: [facility] Address: [address] [place] [address] Performed By: #### A LLBG ####[facility]ORATORYCLIA [id number] [place] [address] [place] pH (Bld) 7.47 [pH] High 7.35-7.45 [facility] Comment on above: Order Comment: Speci men Type: ARTERIAL BLOOD SPECIMENOrdering Facility: [facility] Address: [address] [place] [address] Performed By: #### A LLBG ####[facility]ORATORYCLIA [id number] [address] STATES [facility] pH adjusted to patient's actual temperature (Bld) 7.46 High 7.35-7.45 [facility] Comment on above: Order Comment: Speci men Type: ARTERIAL BLOOD SPECIMENOrdering Facility: [facility] Address: [address] [place] [address] Performed By: #### A LLBG ####[facility] LABORATORYCLIA [id number] [place] [address] [place] Potassium [Moles/Vol] 3.7 mmol/L Normal 3.5-5.0 [facility] Comment on above: Order Comment: Speci men Type: ARTERIAL BLOOD SPECIMENOrdering Facility: [facility] Address: [address] [place] [address] Performed By: #### A LLBG ####[facility]ORATORYCLIA [id number] [address] [place] Sodium [Moles/Vol] 155 mmol/L High 136-144 [facility] Comment on above: Order Comment: Speci men Type: ARTERIAL BLOOD SPECIMENOrdering Facility: [facility] Address: [address] [place] [address] Performed By: #### A LLBG ####[facility]ORATORYCLIA [id number] [address] [place] Bacteria Spec Resp Culton Bacteria identified Respiratory culture Nom (Unsp spec) CULTURE, RESPIRATORY: Rare Normal respiratory chris present ORGANISM ID: 1 Few Yeast, not cryptococcus neoformans GRAM STAIN: No organisms seen Few Polymorphonuclear leukocytes Few Epithelial cells Abnormal [facility] Comment on above: Performed By: #### 3 2355-0 ####[facility]ORATORYCLIA [id number] [place] [address] [place] Basic metabolic 2000 panelon 06-16-2021 Anion gap [Moles/Vol] 9 mmol/L Normal 9-18 [facility] Comment on above: Order Comment: Speci men Type: BLOOD SPECIMENOrdering Facility: [facility] Address: [address] [place] [address] Performed By: #### 2 4321-2 ####[facility]ORATORYCLIA [id number] [place] [address] [place] Calcium [Mass/Vol] 8.4 mg/dL Low 8.5-10.2 [facility] Comment on above: Order Comment: Speci men Type: BLOOD SPECIMENOrdering Facility: [facility] Address: [address] [place] [address] Performed By: #### 2 4321-2 ####[facility]ORATORYCLIA [id number] [place] [address] [place] Chloride [Moles/Vol] 120 mmol/L High 97-105 [facility] Comment on above: Order Comment: Speci men Type: BLOOD SPECIMENOrdering Facility: [facility] Address: [address] [place] [address] Performed By: #### 2 4321-2 ####[facility]ORATORYCLIA [id number] [address] STATES OF [facility] CO2 [Moles/Vol] 27 mmol/L Normal 22-30 [facility] Comment on above: Order Comment: Speci men Type: BLOOD SPECIMENOrdering Facility: [facility] Address: [address] [place] [address] Performed By: #### 2 4321-2 ####[facility]ORATORYCLIA [id number] [address] [place] Creatinine [Mass/Vol] 0.75 mg/dL Normal 0.73-1.22 [facility] Comment on above: Order Comment: Speci men Type: BLOOD SPECIMENOrdering Facility: [facility] Address: [address] [place] [address] Performed By: #### 2 4321-2 ####[facility]ITAL[facility] [id number] [address] [place] GFR/1.73 sq M.predicted MDRD (S/P/Bld) [Vol rate/Area] mL/min/{1.73_m2} Normal [facility] Comment on above: Order Comment: Speci men Type: BLOOD SPECIMENOrdering Facility: [facility] Address: [address] [place] [address] Result Comment: >60e GFR (Estimated GFR) Units [...] 4321-2 ####[facility]ATORYCLIA [id number] [address] [place] Glucose [Mass/Vol] 160 mg/dL High 74-99 [facility] Comment on above: Order Comment: Speci men Type: BLOOD SPECIMENOrdering Facility: [facility] Address: [address] [place] [address] Result Comment: The [place] [employer] (ADA) provides guidance for cutoff [...] Standards of Medical Care in Diabetes 2016, [place] [employer]. Diabetes Care. 2016.39(Suppl 1). Performed By: #### 2 4321-2 ####SELECT [facility]ORYCLIA [id number] [place] [address] [place] Potassium [Moles/Vol] 3.1 mmol/L Low 3.7-5.1 [facility] Comment on above: Order Comment: Shira men Type: BLOOD SPECIMENOrdering Facility: [facility] Address: [address] [place] [address] Performed By: #### 2 4321-2 ####[facility]ATORYCLIA [id number] [place] [address] [place] Sodium [Moles/Vol] 156 mmol/L High 136-144 [facility] Comment on above: Order Comment: Speci men Type: BLOOD SPECIMENOrdering Facility: [facility] Address: [address] [place] [address] Performed By: #### 2 4321-2 ####[facility]ATORYCLIA [id number] [place] [address] [place] Urea nitrogen [Mass/Vol] 33 mg/dL High 9-24 [facility] Comment on above: Order Comment: Speci men Type: BLOOD SPECIMENOrdering Facility: [facility] Address: [address] [place] [address] Performed By: #### 2 4321-2 ####[facility]ATORYCLIA [id number] [address] CASE MANAGEMon 06-16-2021 CASE MANAGEM Normal [facility] CBC panel Auto (Bld)on 06-16 Erythrocyte distribution width (RBC) [Ratio] 15.9 % High 11.5-15.0 [facility] Comment on above: Order Comment: Speci men Type: BLOOD SPECIMENOrdering Facility: [facility] Address: [address] [place] [address] Performed By: #### 5 8410-2 ####[facility] LABORATORYCLIA [id number] [address] STATES [facility] Hematocrit (Bld) [Volume fraction] 34.6 % Low 39.0-51.0 [facility] Comment on above: Order Comment: Speci men Type: BLOOD SPECIMENOrdering Facility: [facility] Address: [address] [place] [address] Performed By: #### 5 8410-2 ####[facility]ATORYCLIA [id number] [address] Hemoglobin (Bld) [Mass/Vol] 10.2 g/dL Low 13.0-17.0 [facility] Comment on above: Order Comment: Speci men Type: BLOOD SPECIMENOrdering Facility: [facility] Address: [address] [place] [address] Performed By: #### 5 8410-2 ####[facility]ATORYCLIA [id number] [address] MCH (RBC) [Entitic mass] 28.5 pg Normal 26.0-34.0 [facility] Comment on above: Order Comment: Speci men Type: BLOOD SPECIMENOrdering Facility: [facility] Address: [address] [place] [address] Performed By: #### 5 8410-2 ####[facility]ATORYCLIA [id number] [address] STATES [facility] MCHC (RBC) [Mass/Vol] 29.5 g/dL Low 30.5-36.0 [facility] Comment on above: Order Comment: Speci men Type: BLOOD SPECIMENOrdering Facility: [facility] Address: [address] [place] [address] Performed By: #### 5 8410-2 ####[facility]ATORYCLIA [id number] [address] STATES OF [facility] MCV (RBC) [Entitic vol] 96.6 fL Normal 80.0-100.0 [facility] Comment on above: Order Comment: Speci men Type: BLOOD SPECIMENOrdering Facility: [facility] Address: [address] [place] [address] Performed By: #### 5 8410-2 ####[facility]ATORYCLIA [id number] [address] Nucleated RBC (Bld) [#/Vol] 10*3/uL Normal <0.01 [facility] Comment on above: Order Comment: Speci men Type: BLOOD SPECIMENOrdering Facility: [facility] Address: [address] [place] [address] Performed By: #### 5 8410-2 ####[facility]ORATORYCLIA [id number] [address] [place] Platelet mean volume (Bld) [Entitic vol] 11.9 fL Normal 9.0-12.7 [facility] Comment on above: Order Comment: Speci men Type: BLOOD SPECIMENOrdering Facility: [facility] Address: [address] [place] [address] Performed By: #### 5 8410-2 ####[facility]ORATORYCLIA [id number] [address] [place] Platelets (Bld) [#/Vol] 269 10*3/uL Normal 150-400 [facility] Comment on above: Order Comment: Speci men Type: BLOOD SPECIMENOrdering Facility: [facility] Address: [address] [place] [address] Performed By: #### 5 8410-2 ####[facility]ATORYCLIA [id number] [address] STATES OF [facility] RBC (Bld) [#/Vol] 3.58 10*6/uL Low 4.20-6.00 [facility] Comment on above: Order Comment: Speci men Type: BLOOD SPECIMENOrdering Facility: [facility] Address: [address] [place] [address] Performed By: #### 5 8410-2 ####[facility]ATORYCLIA [id number] [address] WBC (Bld) [#/Vol] 13.11 10*3/uL High 3.70-11.00 [facility] Comment on above: Order Comment: Speci men Type: BLOOD SPECIMENOrdering Facility: [facility] Address: [address] [place] [address] Performed By: #### 5 8410-2 ####[facility]ORATORYCLIA [id number] [address] [place] CONSULTon 06-16-2021 CONSULT Normal [facility] CONSULT PROGon 06-16-2021 CONSULT PROG Normal [facility] CT BRAIN WO IVCONon 06-16-[address] BRAIN WO IVCON Normal [facility] HEMOGLOBIN (HGB)on 2 Hemoglobin (Bld) [Mass/Vol] 8.9 g/dL Low 13.0-17.0 [facility] Comment on above: Order Comment: Speci men Type: BLOOD SPECIMENOrdering Facility: [facility] Address: [address] [place] [address] Performed By: #### H GB ####[facility]ORATORYCLIA [id number] [address] OF [facility] Hemoglobin (Bld) [Mass/Vol] 9.6 g/dL Low 13.0-17.0 [facility] Comment on above: Order Comment: Speci men Type: BLOOD SPECIMENOrdering Facility: [facility] Address: [address] [place] [address] Performed By: #### H GB ####[facility]ORATORYCLIA [id number] [address] [place] Magnesium SerPl-mCncon 06-16 Magnesium [Mass/Vol] 2.7 mg/dL High 1.7-2.3 [facility] Comment on above: Order Comment: Speci men Type: BLOOD SPECIMENOrdering Facility: [facility] Address: [address] [place] [address] Performed By: #### 1 9123-9 ####[facility]ATORYCLIA [id number] [address] [place] NURSING PROGon 06-16-2021 NURSING PROG Normal [facility] NUTRITIONon 06-16-2021 NUTRITION Normal [facility] Phosphate SerPl-mCncon 06-16 Phosphate [Mass/Vol] 1.4 mg/dL Low 2.7-4.8 [facility] Comment on above: Order Comment: Speci men Type: BLOOD SPECIMENOrdering Facility: [facility] Address: [address] [place] [address] Performed By: #### 2 777-1 ####[facility]ATORYCLIA [id number] [address] [place] STAPH AUREUS PCRon 2 S. aureus and MRSA panel MEGAN+probe (Nose) Normal Negative [facility] Comment on above: Order Comment: Speci men Type: SWAB OF INTERNAL NOSEOrdering Facility: [facility] Address: [address] [place] [address] Result Comment: Nega tive for Staphylococcus aureus by PCR.Negative for MRSA by PCR Performed By: #### S APCR ####[facility]ATORYCLIA [id number] [address] [place] Sodium SerPl-sCncon 06-16-19 Sodium [Moles/Vol] 150 mmol/L High 136-144 [facility] Comment on above: Order Comment: Speci men Type: BLOOD SPECIMENOrdering Facility: [facility] Address: [address] [place] [address] Performed By: #### 2 951-2 ####[facility]ATORYCLIA [id number] [place] [address] [place] Sodium [Moles/Vol] 153 mmol/L High 136-144 [facility] Comment on above: Order Comment: Speci men Type: BLOOD SPECIMENOrdering Facility: [facility] Address: [address] [place] [address] Performed By: #### 2 951-2 ####[facility]ATORYCLIA [id number] [address] [place] Sodium [Moles/Vol] 158 mmol/L High 136-144 [facility] Comment on above: Order Comment: Speci men Type: BLOOD SPECIMENOrdering Facility: [facility] Address: [address] [place] [address] Performed By: #### 2 951-2 ####[facility]ATORYCLIA [id number] [address] [place] aPTT PPPon 06-16-2021 aPTT Coag (PPP) [Time] 61.8 s High 23.0-32.[address] [facility] Comment on above: Order Comment: Speci men Type: BLOOD SPECIMENOrdering Facility: [facility] Address: [address] [place] [address] Performed By: #### 1 4979-9 ####[facility]ATORYCLIA [id number] [address] [place] aPTT Coag (PPP) [Time] 57.6 s High 23.0-32.[address] [facility] Comment on above: Order Comment: Speci men Type: BLOOD SPECIMENOrdering Facility: [facility] Address: [address] [place] [address] Performed By: #### 1 4979-9 ####[facility]ORATORYCLIA [id number] [address] [place] ALLIED HEALTHon 06-15-2021 ALLIED HEALTH Normal [facility] ALLIED HEALTH Normal [facility] ALLIED HEALTH Normal [facility] ALLIED HEALTH Normal [facility] ARTERIAL BLOOD GASESon 06-15 Base excess Calc (Bld) [Moles/Vol] 3 mmol/L High 0-2 [facility] Comment on above: Order Comment: Speci men Type: ARTERIAL BLOOD SPECIMENOrdering Facility: [facility] Address: [address] [place] [address] Performed By: #### A LLBG ####[facility]ORATORYCLIA [id number] [address] [place] Body temperature 99.5 [degF] Normal [facility] Comment on above: Order Comment: Speci men Type: ARTERIAL BLOOD SPECIMENOrdering Facility: [facility] Address: [address] [place] [address] Performed By: #### A LLBG ####[facility]ORATORYCLIA [id number] [place] [address] [place] CALCIUM IONIZED, PH CORRECTED 1.34 mmol/L High 1.08-1.30 [facility] Comment on above: Order Comment: Speci men Type: ARTERIAL BLOOD SPECIMENOrdering Facility: [facility] Address: [address] [place] [address] Performed By: #### A LLBG ####[facility]ATORYCLIA [id number] [address] [place] Calcium.ionized (BldV) [Mass/Vol] 1.29 mmol/L Normal 1.08-1.30 [facility] Comment on above: Order Comment: Speci men Type: ARTERIAL BLOOD SPECIMENOrdering Facility: [facility] Address: [address] [place] [address] Performed By: #### A LLBG ####[facility]ATORYCLIA [id number] [address] [place] Carboxyhemoglobin (BldA) [Mass fraction] 1.3 % Normal 0.0-2.0 [facility] Comment on above: Order Comment: Speci men Type: ARTERIAL BLOOD SPECIMENOrdering Facility: [facility] Address: [address] [address] Result Comment: Carb oxyhemoglobin Reference Range for Smokers: 2.0-8.0% Performed By: #### A LLBG ####[facility]ATORYCLIA [id number] [address] [place] CO2 (Bld) [Partial pressure] 37 mm Hg Normal 36-46 [facility] Comment on above: Order Comment: Speci men Type: ARTERIAL BLOOD SPECIMENOrdering Facility: [facility] Address: [address] [address] Performed By: #### A LLBG ####[facility]ATORYCLIA [id number] [address] [place] CO2 [Moles/Vol] 24.6 mmol/L Normal 22-28 [facility] Comment on above: Order Comment: Speci men Type: ARTERIAL BLOOD SPECIMENOrdering Facility: [facility] Address: [address] [address] Performed By: #### A LLBG ####[facility]ATORYCLIA [id number] [address] [place] CO2 adjusted to patient's actual temperature (Bld) [Partial pressure] 38 mmHg Normal 36-46 [facility] Comment on above: Order Comment: Speci men Type: ARTERIAL BLOOD SPECIMENOrdering Facility: [facility] Address: [address] [address] Performed By: #### A LLBG ####[facility]ATORYCLIA [id number] [address] [place] FIO2 100 % Normal [facility] Comment on above: Order Comment: Speci men Type: ARTERIAL BLOOD SPECIMENOrdering Facility: [facility] Address: [address] [address] Performed By: #### A LLBG ####[facility]ATORYCLIA [id number] [address] [place] Glucose [Mass/Vol] 159 mg/dL High 60-105 [facility] Comment on above: Order Comment: Speci men Type: ARTERIAL BLOOD SPECIMENOrdering Facility: [facility] Address: [address] [place] [address] Performed By: #### A LLBG ####[facility]ATORYCLIA [id number] [address] [place] HCO3 (Bld) [Moles/Vol] 27 mmol/L High 22-[address] [facility] Comment on above: Order Comment: Speci men Type: ARTERIAL BLOOD SPECIMENOrdering Facility: [facility] Address: [address] [place] [address] Performed By: #### A LLBG ####[facility]ATORYCLIA [id number] [address] Hematocrit (Bld) [Volume fraction] 31.0 % Low 39.0-51.0 [facility] Comment on above: Order Comment: Speci men Type: ARTERIAL BLOOD SPECIMENOrdering Facility: [facility] Address: [address] [place] [address] Performed By: #### A LLBG ####[facility]ATORYCLIA [id number] [address] [place] Hemoglobin (Bld) [Mass/Vol] 10.0 g/dL Low 13.0-17.0 [facility] Comment on above: Order Comment: Speci men Type: ARTERIAL BLOOD SPECIMENOrdering Facility: [facility] Address: [address] [place] [address] Performed By: #### A LLBG ####[facility]ATORYCLIA [id number] [address] [place] Methemoglobin (Bld) [Mass fraction] % Normal 0.0-1.5 [facility] Comment on above: Order Comment: Speci men Type: ARTERIAL BLOOD SPECIMENOrdering Facility: [facility] Address: [facility] [address] Performed By: #### A LLBG ####[facility]ORYCLIA [id number] [address] [place] O2 THERAPY Ventilator Normal [facility] Comment on above: Order Comment: Speci men Type: ARTERIAL BLOOD SPECIMENOrdering Facility: [facility] Address: [address] [place] [address] Performed By: #### A LLBG ####[facility]ATORYCLIA [id number] [address] [place] Oxygen (Bld) [Partial pressure] 279 mm Hg High 85-95 [facility] Comment on above: Order Comment: Speci men Type: ARTERIAL BLOOD SPECIMENOrdering Facility: [facility] Address: [address] [place] [address] Performed By: #### A LLBG ####[facility]ORYCLIA [id number] [address] Oxygen adjusted to patient's actual temperature (Bld) [Partial pressure] 281 mmHg High 85-95 [facility] Comment on above: Order Comment: Speci men Type: ARTERIAL BLOOD SPECIMENOrdering Facility: [facility] Address: [address] [place] [address] Performed By: #### A LLBG ####[facility]ATORYCLIA [id number] [address] [place] OXYGEN SATURATION, ARTERIAL 100 % High 95-98 [facility] Comment on above: Order Comment: Speci men Type: ARTERIAL BLOOD SPECIMENOrdering Facility: [facility] Address: [facility] [place] [address] Performed By: #### A LLBG ####[facility]ORYCLIA [id number] [address] [place] Oxyhemoglobin (BldA) [Mass fraction] 98 % Normal 95-98 [facility] Comment on above: Order Comment: Speci men Type: ARTERIAL BLOOD SPECIMENOrdering Facility: [facility] Address: [address] [place] [address] Performed By: #### A LLBG ####[facility]ATORYCLIA [id number] [address] pH (Bld) 7.47 [pH] High 7.35-7.45 [facility] Comment on above: Order Comment: Speci men Type: ARTERIAL BLOOD SPECIMENOrdering Facility: [facility] Address: [address] [place] [address] Performed By: #### A LLBG ####[facility]ATORYCLIA [id number] [address] pH adjusted to patient's actual temperature (Bld) 7.46 High 7.35-7.45 [facility] Comment on above: Order Comment: Speci men Type: ARTERIAL BLOOD SPECIMENOrdering Facility: [facility] Address: [address] [place] [address] Performed By: #### A LLBG ####[facility]ATORYCLIA [id number] [address] [place] Potassium [Moles/Vol] 3.6 mmol/L Normal 3.5-5.0 [facility] Comment on above: Order Comment: Speci men Type: ARTERIAL BLOOD SPECIMENOrdering Facility: [facility] Address: [address] [place] [address] Performed By: #### A LLBG ####[facility]ATORYCLIA [id number] [address] [place] Sodium [Moles/Vol] 162 mmol/L High 136-144 [facility] Comment on above: Order Comment: Speci men Type: ARTERIAL BLOOD SPECIMENOrdering Facility: [facility] Address: [address] [place] [address] Performed By: #### A LLBG ####[facility]ATORYCLIA [id number] [address] [place] Base excess Calc (Bld) [Moles/Vol] 4 mmol/L High 0-2 [facility] Comment on above: Order Comment: Speci men Type: ARTERIAL BLOOD SPECIMENOrdering Facility: [facility] Address: [address] [place] [address] Performed By: #### A LLBG ####[facility]ATORYCLIA [id number] [address] [place] Body temperature 100.58 [degF] Normal [facility] Comment on above: Order Comment: Speci men Type: ARTERIAL BLOOD SPECIMENOrdering Facility: [facility] Address: [address] [place] [address] Performed By: #### A LLBG ####[facility]ORATORYCLIA [id number] [place] [address] [place] CALCIUM IONIZED, PH CORRECTED 1.34 mmol/L High 1.08-1.30 [facility] Comment on above: Order Comment: Speci men Type: ARTERIAL BLOOD SPECIMENOrdering Facility: [facility] Address: [address] [place] [address] Performed By: #### A LLBG ####[facility]ATORYCLIA [id number] [address] [place] Calcium.ionized (BldV) [Mass/Vol] 1.33 mmol/L High 1.08-1.30 [facility] Comment on above: Order Comment: Speci men Type: ARTERIAL BLOOD SPECIMENOrdering Facility: [facility] Address: [address] [place] [address] Performed By: #### A LLBG ####[facility]ORATORYCLIA [id number] [place] [address] [place] Carboxyhemoglobin (BldA) [Mass fraction] 1.5 % Normal 0.0-2.0 [facility] Comment on above: Order Comment: Speci men Type: ARTERIAL BLOOD SPECIMENOrdering Facility: [facility] Address: [address] [place] [address] Result Comment: Carb oxyhemoglobin Reference Range for Smokers: 2.0-8.0% Performed By: #### A LLBG ####[facility]ATORYCLIA [id number] [address] CO2 (Bld) [Partial pressure] 46 mm Hg Normal 36-46 [facility] Comment on above: Order Comment: Speci men Type: ARTERIAL BLOOD SPECIMENOrdering Facility: [facility] Address: [address] [address] Performed By: #### A LLBG ####[facility]ATORYCLIA [id number] [address] CO2 [Moles/Vol] 26.4 mmol/L Normal 22-28 [facility] Comment on above: Order Comment: Speci men Type: ARTERIAL BLOOD SPECIMENOrdering Facility: [facility] Address: [address] [place] [address] Performed By: #### A LLBG ####[facility]ATORYCLIA [id number] [address] CO2 adjusted to patient's actual temperature (Bld) [Partial pressure] 48 mmHg High 36-46 [facility] Comment on above: Order Comment: Speci men Type: ARTERIAL BLOOD SPECIMENOrdering Facility: [facility] Address: [address] [place] [address] Performed By: #### A LLBG ####[facility]ATORYCLIA [id number] [address] FIO2 100 % Normal [facility] Comment on above: Order Comment: Speci men Type: ARTERIAL BLOOD SPECIMENOrdering Facility: [facility] Address: [address] [address] Performed By: #### A LLBG ####[facility]ORYCLIA [id number] [address] Glucose [Mass/Vol] 132 mg/dL High 60-105 [facility] Comment on above: Order Comment: Speci men Type: ARTERIAL BLOOD SPECIMENOrdering Facility: [facility] Address: [address] [place], [place] [address] Performed By: #### A LLBG ####[facility]ATORYCLIA [id number] [address] [place] HCO3 (Bld) [Moles/Vol] 29 mmol/L High 22-[address] [facility] Comment on above: Order Comment: Speci men Type: ARTERIAL BLOOD SPECIMENOrdering Facility: [facility] Address: [address] [place] [address] Performed By: #### A LLBG ####[facility]ATORYCLIA [id number] [address] [place] Hematocrit (Bld) [Volume fraction] 32.3 % Low 39.0-51.0 [facility] Comment on above: Order Comment: Speci men Type: ARTERIAL BLOOD SPECIMENOrdering Facility: [facility] Address: [address] [place] [address] Performed By: #### A LLBG ####[facility]ATORYCLIA [id number] [address] OF [facility] Hemoglobin (Bld) [Mass/Vol] 10.4 g/dL Low 13.0-17.0 [facility] Comment on above: Order Comment: Speci men Type: ARTERIAL BLOOD SPECIMENOrdering Facility: [facility] Address: [address] [place] [address] Performed By: #### A LLBG ####[facility]ATORYCLIA [id number] [address] [place] Methemoglobin (Bld) [Mass fraction] % Normal 0.0-1.5 [facility] Comment on above: Order Comment: Speci men Type: ARTERIAL BLOOD SPECIMENOrdering Facility: [facility] Address: [address] [place] [address] Performed By: #### A LLBG ####[facility]ATORYCLIA [id number] [address] [place] O2 THERAPY NR=Non-Rebreather Mask Normal [facility] Comment on above: Order Comment: Speci men Type: ARTERIAL BLOOD SPECIMENOrdering Facility: [facility] Address: [address] [place] [address] Performed By: #### A LLBG ####[facility]ORYCLIA [id number] [address] Oxygen (Bld) [Partial pressure] 130 mm Hg High 85-95 [facility] Comment on above: Order Comment: Speci men Type: ARTERIAL BLOOD SPECIMENOrdering Facility: [facility] Address: [address] [place] [address] Performed By: #### A LLBG ####[facility] LABORATORYCLIA [id number] [address] Oxygen adjusted to patient's actual temperature (Bld) [Partial pressure] 136 mmHg High 85-95 [facility] Comment on above: Order Comment: Speci men Type: ARTERIAL BLOOD SPECIMENOrdering Facility: [facility] Address: [address] [place] [address] Performed By: #### A LLBG ####[facility]ORATORYCLIA [id number] [address] [place] OXYGEN SATURATION, ARTERIAL 99 % High 95-98 [facility] Comment on above: Order Comment: Speci men Type: ARTERIAL BLOOD SPECIMENOrdering Facility: [facility] Address: [address] [place] [address] Performed By: #### A LLBG ####[facility]ORATORYCLIA [id number] [address] [place] Oxyhemoglobin (BldA) [Mass fraction] 97 % Normal 95-98 [facility] Comment on above: Order Comment: Speci men Type: ARTERIAL BLOOD SPECIMENOrdering Facility: [facility] Address: [address] [place] [address] Performed By: #### A LLBG ####[facility]ORATORYCLIA [id number] [address] [place] pH (Bld) 7.41 [pH] Normal 7.35-7.45 [facility] Comment on above: Order Comment: Speci men Type: ARTERIAL BLOOD SPECIMENOrdering Facility: [facility] Address: [address] [place] [address] Performed By: #### A LLBG ####[facility]ORATORYCLIA [id number] [address] pH adjusted to patient's actual temperature (Bld) 7.40 Normal 7.35-7.45 [facility] Comment on above: Order Comment: Speci men Type: ARTERIAL BLOOD SPECIMENOrdering Facility: [facility] Address: [address] [place] [address] Performed By: #### A LLBG ####[facility]ORATORYCLIA [id number] [address] Potassium [Moles/Vol] 3.8 mmol/L Normal 3.5-5.0 [facility] Comment on above: Order Comment: Speci men Type: ARTERIAL BLOOD SPECIMENOrdering Facility: [facility] Address: [address] [place] [address] Performed By: #### A LLBG ####[facility]ORATORYCLIA [id number] [address] [place] [facility] Sodium [Moles/Vol] 166 mmol/L High 136-144 [facility] Comment on above: Order Comment: Speci men Type: ARTERIAL BLOOD SPECIMENOrdering Facility: [facility] Address: [address] [place] [address] Performed By: #### A LLBG ####[facility]ORATORYCLIA [id number] [place] [address] [place] Bacteria Bld Culton 06-15-19 Bacteria identified Cx Nom (Bld) CULTURE, BLOOD: No growth 5 days Normal [facility] Comment on above: Performed By: #### 6 00-7 ####[facility]ORATORYCLIA [id number] [place] [address] [place] Basic metabolic 2000 panelon 06-15-2021 Anion gap [Moles/Vol] 9 mmol/L Normal 9-18 [facility] Comment on above: Order Comment: Speci men Type: BLOOD SPECIMEN Performed By: #### 2 4321-2, 2776-05, ####[facility]ORATORYCLIA [id number] [place], [place] [id number] [place] [address] [place] [facility] Calcium [Mass/Vol] 9.0 mg/dL Normal 8.5-10.2 [facility] Comment on above: Order Comment: Speci men Type: BLOOD SPECIMEN Performed By: #### 2 4321-2, 2776-05, ####[facility]ORATORYCLIA [id number] [address] [place] Chloride [Moles/Vol] 125 mmol/L High 97-105 [facility] Comment on above: Order Comment: Speci men Type: BLOOD SPECIMEN Performed By: #### 2 4321-2, 2776-05, ####[facility]ATORYCLIA [id number] [address] [place] CO2 [Moles/Vol] 29 mmol/L Normal 22-30 [facility] Comment on above: Order Comment: Speci men Type: BLOOD SPECIMEN Performed By: #### 2 4321-2, 2776-05, ####[facility]ATORYCLIA [id number] [address] [place] Creatinine [Mass/Vol] 0.81 mg/dL Normal 0.73-1.22 [facility] Comment on above: Order Comment: Speci men Type: BLOOD SPECIMEN Performed By: #### 2 4321-2, 2776-05, ####[facility]ORATORYCLIA [id number] [place] [address] [place] [...] has been calibrated to be traceable to IDNJ. An eGFR <60 mL/min/1.73m2 for >3 months is consistent with chronic kidney disease. Refer to KDOQI guidelines for clinical interpretation. In patients with unstable renal function, e.g. those with acute kidney injury, the eGFR may not accurately reflect actual GFR. Performed By: #### 2 4321-2, 2776-05, ####[facility]PITALCLIA [id number] [place] [address] [place] Glucose [Mass/Vol] 124 mg/dL High 74-99 [facility] Comment on above: Order Comment: Speci men Type: BLOOD SPECIMEN Result Comment: The [place] Diabetes Association (ADA) provides guidance for cutoff [...] Standards of Medical Care in Diabetes 2016, [place] Diabetes Association. Diabetes Care. 2016.39(Suppl 1). Performed By: #### 2 4321-2, 2776-05, ####[facility]ORATORYCLIA [id number] [place] [address] [place] Potassium [Moles/Vol] 3.8 mmol/L Normal 3.7-5.1 [facility] Comment on above: Order Comment: Speci men Type: BLOOD SPECIMEN Performed By: #### 2 4321-2, 2776-05, ####[facility]ORATORYCLIA [id number] [place] [address] [place] Sodium [Moles/Vol] 163 mmol/L High 136-144 [facility] Comment on above: Order Comment: Speci men Type: BLOOD SPECIMEN Performed By: #### 2 4321-2, 2776-, ####[facility]ORATORYCLIA [id number] [place], [place] [address] [place] [address] [place] Urea nitrogen [Mass/Vol] 35 mg/dL High 9-24 [facility] Comment on above: Order Comment: Speci men Type: BLOOD SPECIMEN Performed By: #### 2 4321-2, 2776-, ####[facility]ORATORYCLIA [id number] [address] [place] CBC panel Auto (Bld)on 06-15 Erythrocyte distribution width (RBC) [Ratio] 16.3 % High 11.5-15.0 [facility] Comment on above: Order Comment: Speci men Type: BLOOD SPECIMENOrdering Facility: [facility] Address: [address] [place] [address] Performed By: #### 5 8410-2 ####[facility]ORATORYCLIA [id number] [address] [place] Hematocrit (Bld) [Volume fraction] 30.0 % Low 39.0-51.0 [facility] Comment on above: Order Comment: Speci men Type: BLOOD SPECIMENOrdering Facility: [facility] Address: [address] [place] [address] Performed By: #### 5 8410-2 ####[facility]ORATORYCLIA [id number] [address] [place] Hemoglobin (Bld) [Mass/Vol] 8.9 g/dL Low 13.0-17.0 [facility] Comment on above: Order Comment: Speci men Type: BLOOD SPECIMENOrdering Facility: [facility] Address: [address] [place] [address] Performed By: #### 5 8410-2 ####[facility]ORATORYCLIA [id number] [address] MCH (RBC) [Entitic mass] 28.7 pg Normal 26.0-34.0 [facility] Comment on above: Order Comment: Speci men Type: BLOOD SPECIMENOrdering Facility: [facility] Address: [address] [place] [address] Performed By: #### 5 8410-2 ####[facility]ORATORYCLIA [id number] [address] MCHC (RBC) [Mass/Vol] 29.7 g/dL Low 30.5-36.0 [facility] Comment on above: Order Comment: Speci men Type: BLOOD SPECIMENOrdering Facility: [facility] Address: [address] [place] [address] Performed By: #### 5 8410-2 ####[facility]ORATORYCLIA [id number] [address] MCV (RBC) [Entitic vol] 96.8 fL Normal 80.0-100.0 [facility] Comment on above: Order Comment: Speci men Type: BLOOD SPECIMENOrdering Facility: [facility] Address: [address] [place] [address] Performed By: #### 5 8410-2 ####[facility]ORATORYCLIA [id number] [address] Nucleated RBC (Bld) [#/Vol] 10*3/uL Normal <0.01 [facility] Comment on above: Order Comment: Speci men Type: BLOOD SPECIMENOrdering Facility: [facility] Address: [address] [place] [address] Performed By: #### 5 8410-2 ####[facility]ORATORYCLIA [id number] [address] Platelet mean volume (Bld) [Entitic vol] 12.3 fL Normal 9.0-12.7 [facility] Comment on above: Order Comment: Speci men Type: BLOOD SPECIMENOrdering Facility: [facility] Address: [address] [address] Performed By: #### 5 8410-2 ####[facility]ORATORYCLIA [id number] [address] Platelets (Bld) [#/Vol] 226 10*3/uL Normal 150-400 [facility] Comment on above: Order Comment: Speci men Type: BLOOD SPECIMENOrdering Facility: [facility] Address: [address] [place] [address] Performed By: #### 5 8410-2 ####[facility]ORATORYCLIA [id number] [address] RBC (Bld) [#/Vol] 3.10 10*6/uL Low 4.20-6.00 [facility] Comment on above: Order Comment: Speci men Type: BLOOD SPECIMENOrdering Facility: [facility] Address: [address] [place] [address] Performed By: #### 5 8410-2 ####[facility]ORATORYCLIA [id number] [address] WBC (Bld) [#/Vol] 10.77 10*3/uL Normal 3.70-11.00 [facility] Comment on above: Order Comment: Speci men Type: BLOOD SPECIMENOrdering Facility: [facility] Address: [address] [place] [address] Performed By: #### 5 8410-2 ####[facility]ORATORYCLIA [id number] [address] Erythrocyte distribution width (RBC) [Ratio] 16.2 % High 11.5-15.0 [facility] Comment on above: Order Comment: Speci men Type: BLOOD SPECIMENOrdering Facility: [facility] Address: [address] [place] [address] Performed By: #### 5 8410-2 ####[facility]ORATORYCLIA [id number] [address] Hematocrit (Bld) [Volume fraction] 34.8 % Low 39.0-51.0 [facility] Comment on above: Order Comment: Speci men Type: BLOOD SPECIMENOrdering Facility: [facility] Address: [address] [place] [address] Performed By: #### 5 8410-2 ####[facility] LABORATORYCLIA [id number] [address] STATES OF [facility] Hemoglobin (Bld) [Mass/Vol] 10.0 g/dL Low 13.0-17.0 [facility] Comment on above: Order Comment: Speci men Type: BLOOD SPECIMENOrdering Facility: [facility] Address: [address] [place] [address] Performed By: #### 5 8410-2 ####[facility] LABORATORYCLIA [id number] [address] OF [facility] MCH (RBC) [Entitic mass] 27.5 pg Normal 26.0-34.0 [facility] Comment on above: Order Comment: Speci men Type: BLOOD SPECIMENOrdering Facility: [facility] Address: [address] [place] [address] Performed By: #### 5 8410-2 ####[facility]ORATORYCLIA [id number] [address] STATES OF [facility] MCHC (RBC) [Mass/Vol] 28.7 g/dL Low 30.5-36.0 [facility] Comment on above: Order Comment: Speci men Type: BLOOD SPECIMENOrdering Facility: [facility] Address: [address] [place] [address] Performed By: #### 5 8410-2 ####[facility]ORATORYCLIA [id number] [address] MCV (RBC) [Entitic vol] 95.6 fL Normal 80.0-100.0 [facility] Comment on above: Order Comment: Speci men Type: BLOOD SPECIMENOrdering Facility: [facility] Address: [address] [place] [address] Performed By: #### 5 8410-2 ####[facility]ATORYCLIA [id number] [address] Nucleated RBC (Bld) [#/Vol] 10*3/uL Normal <0.01 [facility] Comment on above: Order Comment: Speci men Type: BLOOD SPECIMENOrdering Facility: [facility] Address: [address] [place] [address] Performed By: #### 5 8410-2 ####[facility]ATORYCLIA [id number] [address] [place] Platelet mean volume (Bld) [Entitic vol] 11.9 fL Normal 9.0-12.7 [facility] Comment on above: Order Comment: Speci men Type: BLOOD SPECIMENOrdering Facility: [facility] Address: [address] [place] [address] Performed By: #### 5 8410-2 ####[facility]ORATORYCLIA [id number] [address] [place] Platelets (Bld) [#/Vol] 246 10*3/uL Normal 150-400 [facility] Comment on above: Order Comment: Speci men Type: BLOOD SPECIMENOrdering Facility: [facility] Address: [address] [place] [address] Performed By: #### 5 8410-2 ####[facility]ATORYCLIA [id number] [address] [place] RBC (Bld) [#/Vol] 3.64 10*6/uL Low 4.20-6.00 [facility] Comment on above: Order Comment: Speci men Type: BLOOD SPECIMENOrdering Facility: [facility] Address: [address] [place] [address] Performed By: #### 5 8410-2 ####[facility]ORATORYCLIA [id number] [address] [place] WBC (Bld) [#/Vol] 11.45 10*3/uL High 3.70-11.00 [facility] Comment on above: Order Comment: Speci men Type: BLOOD SPECIMENOrdering Facility: [facility] Address: [address] [place] [address] Performed By: #### 5 8410-2 ####[facility]ATORYCLIA [id number] [address] Erythrocyte distribution width (RBC) [Ratio] 15.9 % High 11.5-15.0 [facility] Comment on above: Order Comment: Speci men Type: BLOOD SPECIMEN Performed By: #### 5 8410-2 ####[facility]ATORYCLIA [id number] [address] Hematocrit (Bld) [Volume fraction] 35.8 % Low 39.0-51.0 [facility] Comment on above: Order Comment: Speci men Type: BLOOD SPECIMEN Performed By: #### 5 8410-2 ####[facility]ATORYCLIA [id number] [address] Hemoglobin (Bld) [Mass/Vol] 10.4 g/dL Low 13.0-17.0 [facility] Comment on above: Order Comment: Speci men Type: BLOOD SPECIMEN Performed By: #### 5 8410-2 ####[facility]ATORYCLIA [id number] [address] MCH (RBC) [Entitic mass] 28.0 pg Normal 26.0-34.0 [facility] Comment on above: Order Comment: Speci men Type: BLOOD SPECIMEN Performed By: #### 5 8410-2 ####[facility]ATORYCLIA [id number] [address] OF [facility] MCHC (RBC) [Mass/Vol] 29.1 g/dL Low 30.5-36.0 [facility] Comment on above: Order Comment: Speci men Type: BLOOD SPECIMEN Performed By: #### 5 8410-2 ####[facility]ATORYCLIA [id number] [address] MCV (RBC) [Entitic vol] 96.2 fL Normal 80.0-100.0 [facility] Comment on above: Order Comment: Speci men Type: BLOOD SPECIMEN Performed By: #### 5 8410-2 ####[facility]ATORYCLIA [id number] [address] Nucleated RBC (Bld) [#/Vol] 10*3/uL Normal <0.01 [facility] Comment on above: Order Comment: Speci men Type: BLOOD SPECIMEN Performed By: #### 5 8410-2 ####[facility]ATORYCLIA [id number] [address] Platelet mean volume (Bld) [Entitic vol] 11.6 fL Normal 9.0-12.7 [facility] Comment on above: Order Comment: Speci men Type: BLOOD SPECIMEN Performed By: #### 5 8410-2 ####[facility]ATORYCLIA [id number] [address] Platelets (Bld) [#/Vol] 265 10*3/uL Normal 150-400 [facility] Comment on above: Order Comment: Speci men Type: BLOOD SPECIMEN Performed By: #### 5 8410-2 ####[facility]ATORYCLIA [id number] [address] RBC (Bld) [#/Vol] 3.72 10*6/uL Low 4.20-6.00 [facility] Comment on above: Order Comment: Speci men Type: BLOOD SPECIMEN Performed By: #### 5 8410-2 ####[facility]ATORYCLIA [id number] [address] WBC (Bld) [#/Vol] 12.24 10*3/uL High 3.70-11.00 [facility] Comment on above: Order Comment: Speci men Type: BLOOD SPECIMEN Performed By: #### 5 8410-2 ####[facility]ATORYCLIA [id number] [address] [place] CONSULTon 06-15-2021 CONSULT Normal [...] Comment: Speci men Type: URINE SPECIMENOrdering Facility: [facility] Address: [address] [place] [address] Performed By: #### U TPR, 32282-0, 16267-8, 17398-7 ####[facility]ORATORYCLIA [id number] [address] Comprehensive metabolic 2000 panelon 06-15-2021 Albumin [Mass/Vol] 2.8 g/dL Low 3.9-4.9 [facility] Comment on above: Order Comment: Speci men Type: BLOOD SPECIMENOrdering Facility: [facility] Address: [address] [place] [address] Performed By: #### 2 4323-8 ####[facility]ORATORYCLIA [id number] [address] [place] ALP [Catalytic activity/Vol] 74 U/L Normal 38-113 [facility] Comment on above: Order Comment: Speci men Type: BLOOD SPECIMENOrdering Facility: [facility] Address: [address] [place] [address] Performed By: #### 2 4323-8 ####[facility]ORATORYCLIA [id number] [address] [place] ALT With P-5'-P [Catalytic activity/Vol] 50 U/L Normal 10-54 [facility] Comment on above: Order Comment: Speci men Type: BLOOD SPECIMENOrdering Facility: [facility] Address: [address] [place] [address] Performed By: #### 2 4323-8 ####[facility] LABORATORYCLIA [id number] [place] [address] [place] Anion gap [Moles/Vol] 12 mmol/L Normal 9-18 [facility] Comment on above: Order Comment: Speci men Type: BLOOD SPECIMENOrdering Facility: [facility] Address: [address] [place] [address] Performed By: #### 2 4323-8 ####[facility] LABORATORYCLIA [id number] [address] [place] AST With P-5'-P [Catalytic activity/Vol] 36 U/L Normal 14-40 [facility] Comment on above: Order Comment: Speci men Type: BLOOD SPECIMENOrdering Facility: [facility] Address: [address] [place] [address] Performed By: #### 2 4323-8 ####[facility]ORATORYCLIA [id number] [place] [address] [place] Bilirubin [Mass/Vol] 0.5 mg/dL Normal 0.2-1.3 [facility] Comment on above: Order Comment: Speci men Type: BLOOD SPECIMENOrdering Facility: [facility] Address: [address] [place] [address] Performed By: #### 2 4323-8 ####[facility]ORATORYCLIA [id number] [address] [place] Calcium [Mass/Vol] 8.8 mg/dL Normal 8.5-10.2 [facility] Comment on above: Order Comment: Speci men Type: BLOOD SPECIMENOrdering Facility: [facility] Address: [address] [place] [address] Performed By: #### 2 4323-8 ####[facility] LABORATORYCLIA [id number] [address] [place] Chloride [Moles/Vol] 126 mmol/L High 97-105 [facility] Comment on above: Order Comment: Speccara feldman Type: BLOOD SPECIMENOrdering Facility: [facility] Address: [address] [place] [address] Performed By: #### 2 4323-8 ####[facility]ORATORYCLIA [id number] [address] [place] CO2 [Moles/Vol] 24 mmol/L Normal 22-30 [facility] Comment on above: Order Comment: Johni francia Type: BLOOD SPECIMENOrdering Facility: [facility] Address: [address] [place] [address] Performed By: #### 2 4323-8 ####[facility]ORATORYCLIA [id number] [address] [place] Creatinine [Mass/Vol] 0.84 mg/dL Normal 0.73-1.22 [facility] Comment on above: Order Comment: Johncara feldman Type: BLOOD SPECIMENOrdering Facility: [facility] Address: [address] [place] [address] Performed By: #### 2 4323-8 ####[facility]ORATORYCLIA [id number] [address] [place] GFR/1.73 sq M.predicted MDRD (S/P/Bld) [Vol rate/Area] mL/min/{1.73_m2} Normal [facility] Comment on above: Order Comment: Johncara feldman Type: BLOOD SPECIMENOrdering Facility: [facility] Address: [address] [place] [address] Result Comment: >60e GFR (Estimated GFR) Units [...] 4323-8 ####[facility]ORATORYCLIA [id number] [place] [address] [place] Glucose [Mass/Vol] 142 mg/dL High 74-99 [facility] Comment on above: Order Comment: Shira feldman Type: BLOOD SPECIMENOrdering Facility: [facility] Address: [address] [place] [address] Result Comment: The [place] Diabetes Association (ADA) provides guidance for cutoff [...] Standards of Medical Care in Diabetes 2016, [place] [employer]. Diabetes Care. 2016.39(Suppl 1). Performed By: #### 2 4323-8 ####[facility]ATORYCLIA [id number] [place] [address] [place] Potassium [Moles/Vol] 3.8 mmol/L Normal 3.7-5.1 [facility] Comment on above: Order Comment: Shira feldman Type: BLOOD SPECIMENOrdering Facility: [facility] Address: [address] [address] Performed By: #### 2 4323-8 ####[facility]ORATORYCLIA [id number] [place] [address] [place] Protein [Mass/Vol] 6.1 g/dL Low 6.3-8.0 [facility] Comment on above: Order Comment: Shira feldman Type: BLOOD SPECIMENOrdering Facility: [facility] Address: [address] [address] Performed By: #### 2 4323-8 ####[facility]ORATORYCLIA [id number] [place] [address] [place] Sodium [Moles/Vol] 162 mmol/L High 136-144 [facility] Comment on above: Order Comment: Speci men Type: BLOOD SPECIMENOrdering Facility: [facility] Address: [address] [place] [address] Performed By: #### 2 4323-8 ####[facility] LABORATORYCLIA [id number] [place] [address] [place] Urea nitrogen [Mass/Vol] 33 mg/dL High 9-24 [facility] Comment on above: Order Comment: Speci men Type: BLOOD SPECIMENOrdering Facility: [facility] [facility]OSP[facility] Address: [address] [place] [address] Performed By: #### 2 4323-8 ####[facility] LABORATORYCLIA [id number] [address] [place] Creatinine Unsp time (U) [Ma ss/Vol]on 06-15-2021 Creatinine (U) [Mass/Vol] 87.0 mg/dL Normal 46.8-314.5 [facility] Comment on above: Order Comment: Speci men Type: URINE SPECIMENOrdering Facility: [facility] Address: [address] [place] [address] Performed By: #### U TPR, 94044-1, 32307-5, 98863-2 ####[facility] LABORATORYCLIA [id number] [address] [place] HIGH SENSITIVITY TROPONIN To n 06-15-2021 HIGH SENSITIVITY TAMIKO 23 ng/L High <12 [facility] Comment on above: Order Comment: Speci men Type: BLOOD SPECIMENOrdering Facility: [facility] Address: [address] [place] [address] Result Comment: When assessing risk for acute [...] day MACE. Performed By: #### P JULIANNE, 65676-3, HSTNT ####[facility]ORATORYCLIA [id number] [address] STATES OF [facility] Lactate (Bld) [Moles/Vol]on 06-15-2021 Lactate [Moles/Vol] 0.8 mmol/L Normal 0.5-2.2 [facility] Comment on above: Order Comment: Speci men Type: BLOOD SPECIMENOrdering Facility: [facility] Address: [address] [place] [address] Performed By: #### 3 2693-4 ####[facility]ITAL[facility] [id number] [address] [place] Magnesium [facility]-ncon 06-15 Magnesium [Mass/Vol] 3.0 mg/dL High 1.7-2.3 [facility] Comment on above: Order Comment: Speci men Type: BLOOD SPECIMEN Performed By: #### 2 4321-2, 2777-1, 18103-9 ####[facility]ORATORYCLIA [id number] [address] [facility] Natriuretic peptide.B prohormone N-Terminal [Mass/Vol] 265 pg/mL High <125 [facility] Comment on above: Order Comment: Speci men Type: BLOOD SPECIMENOrdering Facility: [facility] Address: [address] [address] Performed By: #### P JULIANNE, 60376-2, HSTNT ####[facility] LABORATORYCLIA [id number] [address] [place] Osmolality Uron 06-15-2021 Osmolality (U) [Osmolality] 606 mosm/kg Normal 50-1,200 [facility] Comment on above: Order Comment: Speci men Type: URINE SPECIMENOrdering Facility: [facility] Address: [address] [place] [address] Performed By: #### 2 695-5 ####[facility]ORATORYCLIA [id number] [address] PROCALCITONIN (LAB)on 2021 Procalcitonin [Mass/Vol] 0.21 ng/mL High <0.09 [facility] Comment on above: Order Comment: Speci men Type: BLOOD SPECIMENOrdering Facility: [facility] Address: [address] [place] [address] Result Comment: For a guided interpretation of test results, please visit the Change in Procalcitonin Calculator, [email or web address]. Performed By: #### P JULIANNE, 2951-2 ####[facility]ORATORYCLIA [id number] [address] Procalcitonin [Mass/Vol] 0.17 ng/mL High <0.09 [facility] Comment on above: Order Comment: Speci men Type: BLOOD SPECIMENOrdering Facility: [facility] Address: [address] [place] [address] Result Comment: For a guided interpretation of test results, please visit the Change in Procalcitonin Calculator, [email or web address]. Performed By: #### P JULIANNE, 06470-1, HSTNT ####[facility]ORATORYCLIA [id number] [address] PROTEIN RANDOM URon 06-15-19 22 Protein (U) [Mass/Vol] 175 mg/dL High 0-[address] [facility] Comment on above: Order Comment: Speci men Type: URINE SPECIMENOrdering Facility: [facility] Address: [address] [place] [address] Performed By: #### U TPR, 32690-0, 07791-1, 14279-8 ####[facility]ORATORYCLIA [id number] [address] PT panel Coag (PPP)on 2021 INR Coag (PPP) [Relative time] 1.1 {INR} Normal <1.4 [facility] Comment on above: Order Comment: Shira feldman Type: BLOOD SPECIMENOrdering Facility: [facility] Address: [address] [place] [address] Result Comment: Yris min K Antagonist (VKA) Therapeutic Range: INR 2 to 3 (Target INR of 2.5)Note: For patients treated with VKA drugs, such as warfarin, the [place] [employer] 2012 Guideline recommends [...] al. Chest 2012, 141:7S-47SNishimura RA, et al. [facility] 2017, 70: 252-289 Performed By: #### 3 4528-0, 72918-7 ####[facility] LABORATORYCLIA [id number] [place] [address] [place] PT Coag (PPP) [Time] 11.4 s Normal <13.1 [facility] Comment on above: Order Comment: Shira feldman Type: BLOOD SPECIMENOrdering Facility: [facility] Address: [address] [place], [place] [address] Performed By: #### 3 4528-0, 44919-8 ####[facility]ORATORYCLIA [id number] [place] [address] [place] Phosphate SerPl-mCncon 06-15 Phosphate [Mass/Vol] 2.6 mg/dL Low 2.7-4.8 [facility] Comment on above: Order Comment: Shira feldman Type: BLOOD SPECIMEN Performed By: #### 2 4321-2, 2777-1, 26391-6 ####[facility]ORATORYCLIA [id number] [place] [address] [place] Sodium ?Tm Ur-sCncon 022 Sodium Unsp time (U) [Moles/Vol] 34 mmol/L Normal 14-216 [facility] Comment on above: Order Comment: Speci men Type: URINE SPECIMENOrdering Facility: [facility] Address: [address] [place] [address] Performed By: #### U TPR, 15143-3, 42753-8, 29190-0 ####[facility]ORATORYCLIA [id number] [address] [place] Sodium SerPl-sCncon 06-15-19 22 Sodium [Moles/Vol] 159 mmol/L High 136-144 [facility] Comment on above: Order Comment: Speci men Type: BLOOD SPECIMENOrdering Facility: [facility] Address: [address] [place] [address] Performed By: #### P JULIANNE, 2951-2 ####[facility]ORATORYCLIA [id number] [address] [place] THERAPY NTon 06-15-2021 THERAPY NT Normal [facility] Urinalysis complete panel (U )on 06-15-2021 Bacteria LM.HPF (Urine sed) [#/Area] None Seen Normal None Seen [facility] Comment on above: Order Comment: Speci men Type: URINE SPECIMENOrdering Facility: [facility] Address: [address] [place] [address] Performed By: #### 2 4356-8 ####[facility]ORATORYCLIA [id number] [address] [place] Bilirubin Ql (U) Negative Normal Negative [facility] Comment on above: Order Comment: Speci men Type: URINE SPECIMENOrdering Facility: [facility] Address: [address] [place] [address] Performed By: #### 2 4356-8 ####[facility]ORATORYCLIA [id number] [address] Clarity (Unsp spec) Cloudy Abnormal Clear [facility] Comment on above: Order Comment: Speci men Type: URINE SPECIMENOrdering Facility: [facility] Address: [address] [place] [address] Performed By: #### 2 4356-8 ####[facility]ORATORYCLIA [id number] [address] Color (U) Yellow Normal Yellow [facility] Comment on above: Order Comment: Speci men Type: URINE SPECIMENOrdering Facility: [facility] Address: [address] [place] [address] Performed By: #### 2 4356-8 ####[facility]ORATORYCLIA [id number] [address] Epithelial cells LM.HPF (Urine sed) [#/Area] 7.1 /[HPF] Normal [facility] Comment on above: Order Comment: Speci men Type: URINE SPECIMENOrdering Facility: [facility] Address: [address] [place] [address] Performed By: #### 2 4356-8 ####[facility]ORATORYCLIA [id number] [address] Glucose Test strip (U) [Mass/Vol] Negative Normal Negative [facility] Comment on above: Order Comment: Speci men Type: URINE SPECIMENOrdering Facility: [facility] Address: [address] [place] [address] Performed By: #### 2 4356-8 ####[facility] LABORATORYCLIA [id number] [address] Granular casts (Urine sed) [#/Area] /[LPF] Abnormal 0 /LPF [facility] Comment on above: Order Comment: Speci men Type: URINE SPECIMENOrdering Facility: [facility] Address: [address] [place] [address] Performed By: #### 2 4356-8 ####[facility]ATORYCLIA [id number] [address] [place] Hemoglobin Ql (U) Moderate Abnormal Negative [facility] Comment on above: Order Comment: Speci men Type: URINE SPECIMENOrdering Facility: [facility] Address: [address] [place] [address] Performed By: #### 2 4356-8 ####[facility]ORATORYCLIA [id number] [place] [address] [place] Hyaline casts (Urine sed) [#/Area] /[LPF] Abnormal 0 /LPF [facility] Comment on above: Order Comment: Speci men Type: URINE SPECIMENOrdering Facility: [facility] Address: [address] [place] [address] Performed By: #### 2 4356-8 ####[facility]ORATORYCLIA [id number] [address] STATES [facility] Ketones Ql (U) Negative Normal Negative [facility] Comment on above: Order Comment: Speci men Type: URINE SPECIMENOrdering Facility: [facility] Address: [address] [place] [address] Performed By: #### 2 4356-8 ####[facility]ORATORYCLIA [id number] [address] [place] Leukocyte esterase Test strip Ql (U) Negative Normal Negative [facility] Comment on above: Order Comment: Speci men Type: URINE SPECIMENOrdering Facility: [facility] Address: [address] [place] [address] Performed By: #### 2 4356-8 ####[facility]ATORYCLIA [id number] [place] [address] [place] Nitrite Ql (U) Negative Normal Negative [facility] Comment on above: Order Comment: Speci men Type: URINE SPECIMENOrdering Facility: [facility] Address: [facility] [place] [address] Performed By: #### 2 4356-8 ####[facility]ATORYCLIA [id number] [address] pH (U) 6.0 [pH] Normal 5.0-8.0 [facility] Comment on above: Order Comment: Speci men Type: URINE SPECIMENOrdering Facility: [facility] Address: [address] [place] [address] Performed By: #### 2 4356-8 ####[facility]ORATORYCLIA [id number] [address] Protein (U) [Mass/Vol] 100 mg/dL Abnormal Negative [facility] Comment on above: Order Comment: Speci men Type: URINE SPECIMENOrdering Facility: [facility] Address: [address] [place] [address] Performed By: #### 2 4356-8 ####[facility]PITALCLIA [id number] [address] STATES [facility] RBC LM.HPF (Urine sed) [#/Area] 0-3 /HPF Normal 0-3 /HPF [facility] Comment on above: Order Comment: Speci men Type: URINE SPECIMENOrdering Facility: [facility] Address: [address] [place] [address] Performed By: #### 2 4356-8 ####[facility]ORATORYCLIA [id number] [address] Specific gravity (U) [Rel density] 1.024 Normal 1.005-1.030 [facility] Comment on above: Order Comment: Speci men Type: URINE SPECIMENOrdering Facility: [facility] Address: [address] [place] [address] Performed By: #### 2 4356-8 ####[facility]ORATORYCLIA [id number] [address] Urobilinogen Ql (U) 0.2 EU/dL Normal 0.2-1.0 EU/dL [facility] Comment on above: Order Comment: Speci men Type: URINE SPECIMENOrdering Facility: [facility] Address: [address] [place] [address], [place] [address] Performed By: #### 2 4356-8 ####[facility]ORATORYCLIA [id number] [address] STATES [facility] WBC LM.HPF (Urine sed) [#/Area] 0-5 /HPF Normal 0-5 /HPF [facility] Comment on above: Order Comment: Speci men Type: URINE SPECIMENOrdering Facility: [facility] Address: [address] [place], [place] [address] [address] Performed By: #### 2 4356-8 ####[facility] LABORATORYCLIA [id number] [address] OF [facility] XR CHEST 1V FRONTALon 2021 XR CHEST 1V FRONTAL Normal [facility] XR CHEST 1V FRONTAL PORTon 0 06-15-2021 XR CHEST 1V FRONTAL PORT Normal [facility] XR CHEST 1V FRONTAL PORT Normal [facility] aPTT PPPon 06-15-2021 aPTT Coag (PPP) [Time] 30.9 s Normal 23.0-32.[address] [facility] Comment on above: Order Comment: Speci men Type: BLOOD SPECIMENOrdering Facility: [facility] Address: [facility] [address] [place] [place] [address] Performed By: #### 3 4528-0, 74362-5 ####[facility]ORATORYCLIA [id number] [address] STATES OF [facility] Basic metabolic 2000 panelon 06-14-2021 Anion gap [Moles/Vol] 8 mmol/L Low 9-18 [facility] Comment on above: Order Comment: Speci men Type: BLOOD SPECIMEN Performed By: #### 2 4321-2, 2777-1, 06756-9 ####[facility]ORATORYCLIA [id number] [address] STATES OF [facility] Calcium [Mass/Vol] 8.9 mg/dL Normal 8.5-10.2 [facility] Comment on above: Order Comment: Speci men Type: BLOOD SPECIMEN Performed By: #### 2 4321-2, 2776-05, ####[facility]ORATORYCLIA [id number] [place], [place] [address] [place] [address] [place] [facility] Chloride [Moles/Vol] 121 mmol/L High 97-105 [facility] Comment on above: Order Comment: Speci men Type: BLOOD SPECIMEN Performed By: #### 2 4321-2, 2776-05, ####[facility]ATORYCLIA [id number] [address] [place] CO2 [Moles/Vol] 30 mmol/L Normal 22-30 [facility] Comment on above: Order Comment: Speci men Type: BLOOD SPECIMEN Performed By: #### 2 4321-2, 2776-05, ####[facility]ORATORYCLIA [id number] [address] STATES OF [facility] Creatinine [Mass/Vol] 0.78 mg/dL Normal 0.73-1.22 [facility] Comment on above: Order Comment: Speci men Type: BLOOD SPECIMEN Performed By: #### 2 4321-2, 2776-05, ####[facility]ORATORYCLIA [id number] [address] [place] GFR/1.73 sq M.predicted [...] 2776-05, ####[facility]ORATORYCLIA [id number] [place] [address] [place] Glucose [Mass/Vol] 132 mg/dL High 74-99 [facility] Comment on above: Order Comment: Speci men Type: BLOOD SPECIMEN Result Comment: The [place] Diabetes Association (ADA) provides guidance for cutoff [...] Standards of Medical Care in Diabetes 2016, [place] [employer]. Diabetes Care. 2016.39(Suppl 1). Performed By: #### 2 4321-2, 2776-05, ####[facility]ORATORYCLIA [id number] [place] [address] [place] Potassium [Moles/Vol] 3.7 mmol/L Normal 3.7-5.1 [facility] Comment on above: Order Comment: Speci men Type: BLOOD SPECIMEN Performed By: #### 2 1-2, 2776-05, ####[facility]ORATORYCLIA [id number] [place] [address] [place] Sodium [Moles/Vol] 159 mmol/L High 136-144 [facility] Comment on above: Order Comment: Speci men Type: BLOOD SPECIMEN Performed By: #### 2 4321-2, 2776-05, ####[facility]ATORYCLIA [id number] [place] [address] [place] Urea nitrogen [Mass/Vol] 35 mg/dL High 9-24 [facility] Comment on above: Order Comment: Speci men Type: BLOOD SPECIMEN Performed By: #### 2 1-2, 2776-05, 78759-8 ####[facility]ORATORYCLIA [id number] [address] CASE MANAGEMon 06-14-2021 CASE MANAGEM Normal [facility] CBC panel Auto (Bld)on 06-14 Erythrocyte distribution width (RBC) [Ratio] 16.2 % High 11.5-15.0 [facility] Comment on above: Order Comment: Speci men Type: BLOOD SPECIMEN Performed By: #### 5 8410-2 ####[facility]ORATORYCLIA [id number] [address] Hematocrit (Bld) [Volume fraction] 35.2 % Low 39.0-51.0 [facility] Comment on above: Order Comment: Speci men Type: BLOOD SPECIMEN Performed By: #### 5 8410-2 ####[facility]ORATORYCLIA [id number] [address] Hemoglobin (Bld) [Mass/Vol] 10.1 g/dL Low 13.0-17.0 [facility] Comment on above: Order Comment: Speci men Type: BLOOD SPECIMEN Performed By: #### 5 8410-2 ####[facility]ORATORYCLIA [id number] [address] MCH (RBC) [Entitic mass] 27.2 pg Normal 26.0-34.0 [facility] Comment on above: Order Comment: Speci men Type: BLOOD SPECIMEN Performed By: #### 5 8410-2 ####[facility]ORATORYCLIA [id number] [address] MCHC (RBC) [Mass/Vol] 28.7 g/dL Low 30.5-36.0 [facility] Comment on above: Order Comment: Speci men Type: BLOOD SPECIMEN Performed By: #### 5 8410-2 ####[facility]ORATORYCLIA [id number] [address] MCV (RBC) [Entitic vol] 94.6 fL Normal 80.0-100.0 [facility] Comment on above: Order Comment: Speci men Type: BLOOD SPECIMEN Performed By: #### 5 8410-2 ####[facility]ORATORYCLIA [id number] [address] Nucleated RBC (Bld) [#/Vol] 10*3/uL Normal <0.01 [facility] Comment on above: Order Comment: Speci men Type: BLOOD SPECIMEN Performed By: #### 5 8410-2 ####[facility]ORATORYCLIA [id number] [address] Platelet mean volume (Bld) [Entitic vol] 11.0 fL Normal 9.0-12.7 [facility] Comment on above: Order Comment: Speci men Type: BLOOD SPECIMEN Performed By: #### 5 8410-2 ####[facility]ORATORYCLIA [id number] [address] Platelets (Bld) [#/Vol] 287 10*3/uL Normal 150-400 [facility] Comment on above: Order Comment: Speci men Type: BLOOD SPECIMEN Performed By: #### 5 8410-2 ####[facility]ATORYCLIA [id number] [address] RBC (Bld) [#/Vol] 3.72 10*6/uL Low 4.20-6.00 [facility] Comment on above: Order Comment: Speci men Type: BLOOD SPECIMEN Performed By: #### 5 8410-2 ####[facility]ORATORYCLIA [id number] [address] WBC (Bld) [#/Vol] 12.23 10*3/uL High 3.70-11.00 [facility] Comment on above: Order Comment: Speci men Type: BLOOD SPECIMEN Performed By: #### 5 8410-2 ####[facility]ORATORYCLIA [id number] [address] Comprehensive metabolic 2000 panelon 06-14-2021 Albumin [Mass/Vol] 3.1 g/dL Low 3.9-4.9 [facility] Comment on above: Order Comment: Speci men Type: BLOOD SPECIMEN Performed By: #### 2 4323-8, HSTNT, 2776-05, ####[facility]ORATORYCLIA [id number] [place], [place] [address] [place] [address] ALP [Catalytic activity/Vol] 72 U/L Normal 38-113 [facility] Comment on above: Order Comment: Speci men Type: BLOOD SPECIMEN Performed By: #### 2 4323-8, HSTNT, 2776-05, ####[facility]ATORYCLIA [id number] [address] ALT With P-5'-P [Catalytic activity/Vol] 57 U/L High 10-54 [facility] Comment on above: Order Comment: Speci men Type: BLOOD SPECIMEN Performed By: #### 2 4323-8, HSTNT, 2776-05, ####[facility]ATORYCLIA [id number] [address] Anion gap [Moles/Vol] 9 mmol/L Normal 9-18 [facility] Comment on above: Order Comment: Speci men Type: BLOOD SPECIMEN Performed By: #### 2 4323-8, HSTNT, 2776-05, ####[facility]ORYCLIA [id number] [address] AST With P-5'-P [Catalytic activity/Vol] 33 U/L Normal 14-40 [facility] Comment on above: Order Comment: Speci men Type: BLOOD SPECIMEN Performed By: #### 2 4323-8, HSTNT, 2776-05, ####[facility]ORYCLIA [id number] [address] OF [facility] Bilirubin [Mass/Vol] 0.5 mg/dL Normal 0.2-1.3 [facility] Comment on above: Order Comment: Speci men Type: BLOOD SPECIMEN Performed By: #### 2 4323-8, HSTNT, 2776-05, ####[facility]ATORYCLIA [id number] [address] STATES OF [facility] Calcium [Mass/Vol] 8.8 mg/dL Normal 8.5-10.2 [facility] Comment on above: Order Comment: Speci men Type: BLOOD SPECIMEN Performed By: #### 2 4323-8, HSTNT, 2776-05, ####[facility]ATORYCLIA [id number] [address] STATES OF [facility] Chloride [Moles/Vol] 124 mmol/L High 97-105 [facility] Comment on above: Order Comment: Speci men Type: BLOOD SPECIMEN Performed By: #### 2 4323-8, HSTNT, 2776-05, ####[facility]ORYCLIA [id number] [address] STATES OF [facility] CO2 [Moles/Vol] 29 mmol/L Normal 22-30 [facility] Comment on above: Order Comment: Speci men Type: BLOOD SPECIMEN Performed By: #### 2 4323-8, HSTNT, 2776-05, ####[facility]ORYCLIA [id number] [address] [place] Creatinine [Mass/Vol] 0.73 mg/dL Normal 0.73-1.22 [facility] Comment on above: Order Comment: Speci men Type: BLOOD SPECIMEN Performed By: #### 2 4323-8, HSTNT, 2776-05, ####[facility]ORYCLIA [id number] [address] [place] GFR/1.73 sq M.predicted [...] 2776-05, ####[facility]ATORYCLIA [id number] [place] [address] [place] Glucose [Mass/Vol] 137 mg/dL High 74-99 [facility] Comment on above: Order Comment: Speci men Type: BLOOD SPECIMEN Result Comment: The [place] Diabetes Association (ADA) provides guidance for cutoff [...] Standards of Medical Care in Diabetes 2016, [place] [employer]. Diabetes Care. 2016.39(Suppl 1). Performed By: #### 2 4323-8, HSTNT, 2776-05, ####[facility]ATORYCLIA [id number] [place] [address] [place] Potassium [Moles/Vol] 3.6 mmol/L Low 3.7-5.1 [facility] Comment on above: Order Comment: Speci men Type: BLOOD SPECIMEN Performed By: #### 2 4323-8, HSTNT, 2776-05, ####[facility]ATORYCLIA [id number] [address] Protein [Mass/Vol] 5.9 g/dL Low 6.3-8.0 [facility] Comment on above: Order Comment: Speci men Type: BLOOD SPECIMEN Performed By: #### 2 4323-8, HSTNT, 2777-1, 94176-0 ####[facility]ATORYCLIA [id number] [address] Sodium [Moles/Vol] 162 mmol/L High 136-144 [facility] Comment on above: Order Comment: Speci men Type: BLOOD SPECIMEN Performed By: #### 2 4323-8, HSTNT, 2776-, ####[facility]ATORYCLIA [id number] [address] Urea nitrogen [Mass/Vol] 33 mg/dL High 9-24 [facility] Comment on above: Order Comment: Speci men Type: BLOOD SPECIMEN Performed By: #### 2 4323-8, HSTNT, 2776-05, ####[facility]ORYCLIA [id number] [address] HIGH SENSITIVITY TROPONIN To n 06-14-2021 [...] STNT ####[facility]ORYCLIA [id number] [address] HIGH SENSITIVITY TAMIKO 22 ng/L High [...] Performed By: #### 2 4323-8, HSTNT, 2776-05, ####[facility]ORYCLIA [id number] [address] Magnesium SerPl-mCncon 06-14 Magnesium [Mass/Vol] 2.9 mg/dL High 1.7-2.3 [facility] Comment on above: Order Comment: Speci men Type: BLOOD SPECIMEN Performed By: #### 2 4323-8, HSTNT, 2776-05, ####[facility]ATORYCLIA [id number] [address] Magnesium [Mass/Vol] 3.0 mg/dL High 1.7-2.3 [facility] Comment on above: Order Comment: Speci men Type: BLOOD SPECIMEN Performed By: #### 2 4321-2, 2776-05, ####[facility]ATORYCLIA [id number] [address] NURSING PROGon 06-14-2021 NURSING PROG Normal [facility] NUTRITIONon 06-14-2021 NUTRITION Normal [facility] Phosphate SerPl-mCncon 06-14 Phosphate [Mass/Vol] 2.4 mg/dL Low 2.7-4.8 [facility] Comment on above: Order Comment: Speci men Type: BLOOD SPECIMEN Performed By: #### 2 4323-8, HSTNT, 2776-05, ####[facility]ORYCLIA [id number] [address] Phosphate [Mass/Vol] 3.2 mg/dL Normal 2.7-4.8 [facility] Comment on above: Order Comment: Speci men Type: BLOOD SPECIMEN Performed By: #### 2 4321-2, 2776-05, ####[facility]ATORYCLIA [id number] [place], [place] [address] [place] [address] [place] THERAPY NTon 06-14-2021 THERAPY [...] 2776-05 ####[facility]ATORYCLIA [id number] [address] STATES OF [facility] Calcium [Mass/Vol] 8.8 mg/dL Normal 8.5-10.2 [facility] Comment on above: Order Comment: Speci men Type: BLOOD SPECIMEN Performed By: #### 2 4321-2, , 2776-05 ####[facility]ORYCLIA [id number] [address] [place] Chloride [Moles/Vol] 120 mmol/L High 97-105 [facility] Comment on above: Order Comment: Speci men Type: BLOOD SPECIMEN Performed By: #### 2 4321-2, , 2776-05 ####[facility]ATORYCLIA [id number] [place] [id number] [place] CO2 [Moles/Vol] 28 mmol/L Normal 22-30 [facility] Comment on above: Order Comment: Speci men Type: BLOOD SPECIMEN Performed By: #### 2 4321-2, , 2776-05 ####[facility]ATORYCLIA [id number] [place] [address] [place] Creatinine [Mass/Vol] 0.78 mg/dL Normal 0.73-1.22 [facility] Comment on above: Order Comment: Speci [facility] Type: BLOOD SPECIMEN Performed By: #### 2 4321-2, 30410-4, 2777-1 ####[facility]ATORYCLIA [id number] [place] [address] [place] [...] actual GFR. Performed By: #### 2 4321-2, 40495-2, 277-1 ####[facility]ATORYCLIA [id number] [place] [address] [place] Glucose [Mass/Vol] 126 mg/dL High 74-99 [facility] Comment on above: Order Comment: [facility] Type: BLOOD SPECIMEN Result Comment: The [place] Diabetes Association (ADA) provides guidance for cutoff [...] Standards of Medical Care in Diabetes 2016, [place] Diabetes Association. Diabetes Care. 2016.39(Suppl 1). Performed By: #### 2 4321-2, , 2776-05 ####[facility]ATORYCLIA [id number] [place], [place] [address] [place] [address] [place] [facility] Potassium [Moles/Vol] 3.6 mmol/L Low 3.7-5.1 [facility] Comment on above: Order Comment: Speci men Type: BLOOD SPECIMEN Performed By: #### 2 4321-2, , 2776-05 ####[facility]ATORYCLIA [id number] [place], [place] [address] [place] [address] [place] Sodium [Moles/Vol] 155 mmol/L High 136-144 [facility] Comment on above: Order Comment: Speci men Type: BLOOD SPECIMEN Performed By: #### 2 1-2, , 2776-05 ####[facility]ATORYCLIA [id number] [place] [address] [place] Urea nitrogen [Mass/Vol] 36 mg/dL High 9-24 [facility] Comment on above: Order Comment: Speci men Type: BLOOD SPECIMEN Performed By: #### 2 1-2, , 2776-05 ####[facility]ORYCLIA [id number] [address] STATES OF [facility] Anion gap [Moles/Vol] 6 mmol/L Low 9-18 [facility] Comment on above: Order Comment: Speci men Type: BLOOD SPECIMEN Performed By: #### 2 4321-2, 2776-05, ####[facility]ORYCLIA [id number] [place] [address] [place] Calcium [Mass/Vol] 6.5 mg/dL Low 8.5-10.2 [facility] Comment on above: Order Comment: Speci men Type: BLOOD SPECIMEN Performed By: #### 2 4321-2, 2776-05, ####[facility]ORYCLIA [id number] [place] [address] [place] Chloride [Moles/Vol] 124 mmol/L High 97-105 [facility] Comment on above: Order Comment: Speci men Type: BLOOD SPECIMEN Performed By: #### 2 4321-2, 2776-05, ####[facility]ATORYCLIA [id number] [place] [address] [place] CO2 [Moles/Vol] 24 mmol/L Normal 22-30 [facility] Comment on above: Order Comment: Speci men Type: BLOOD SPECIMEN Performed By: #### 2 4321-2, 2776-05, ####[facility]ATORYCLIA [id number] [place] [address] [place] Creatinine [Mass/Vol] 0.61 mg/dL Low 0.73-1.22 [facility] Comment on above: Order Comment: Speci men Type: BLOOD SPECIMEN Performed By: #### 2 4321-2, 2776-05, ####[facility]ATORYCLIA [id number] [address] [place] GFR/1.73 sq M.predicted [...] 2776-05, ####[facility]ATORYCLIA [id number] [place] [address] [place] Glucose [Mass/Vol] 100 mg/dL High 74-99 [facility] Comment on above: Order Comment: Speci men Type: BLOOD SPECIMEN Result Comment: The [place] Diabetes Association (ADA) provides guidance for cutoff [...] Standards of Medical Care in Diabetes 2016, [place] Diabetes Association. Diabetes Care. 2016.39(Suppl 1). Performed By: #### 2 4321-2, 2776-05, ####[facility]ATORYCLIA [id number] [address] STATES OF [facility] Potassium [Moles/Vol] 2.7 mmol/L Low 3.7-5.1 [facility] Comment on above: Order Comment: Speci men Type: BLOOD SPECIMEN Performed By: #### 2 4321-2, 2776-05, ####[facility]ATORYCLIA [id number] [address] STATES [facility] Sodium [Moles/Vol] 154 mmol/L High 136-144 [facility] Comment on above: Order Comment: Speci men Type: BLOOD SPECIMEN Performed By: #### 2 4321-2, 2776-05, ####[facility]ATORYCLIA [id number] [place], [place] [id number] [place] [address] [place] Urea nitrogen [Mass/Vol] 29 mg/dL High 9-24 [facility] Comment on above: Order Comment: Speci men Type: BLOOD SPECIMEN Performed By: #### 2 4321-2, 2776-05, ####[facility]ATORYCLIA [id number] [address] OF [facility] CASE MANAGEMon 06-13-2021 CASE MANAGEM Normal [facility] CBC panel Auto (Bld)on 06-13 Erythrocyte distribution width (RBC) [Ratio] 15.9 % High 11.5-15.0 [facility] Comment on above: Order Comment: Speci men Type: BLOOD SPECIMEN Performed By: #### 5 8410-2 ####[facility]ATORYCLIA [id number] [address] Hematocrit (Bld) [Volume fraction] 34.3 % Low 39.0-51.0 [facility] Comment on above: Order Comment: Speci men Type: BLOOD SPECIMEN Performed By: #### 5 8410-2 ####[facility]ATORYCLIA [id number] [address] Hemoglobin (Bld) [Mass/Vol] 9.9 g/dL Low 13.0-17.0 [facility] Comment on above: Order Comment: Speci men Type: BLOOD SPECIMEN Performed By: #### 5 8410-2 ####[facility]ATORYCLIA [id number] [address] MCH (RBC) [Entitic mass] 27.3 pg Normal 26.0-34.0 [facility] Comment on above: Order Comment: Speci men Type: BLOOD SPECIMEN Performed By: #### 5 8410-2 ####[facility]ATORYCLIA [id number] [address] MCHC (RBC) [Mass/Vol] 28.9 g/dL Low 30.5-36.0 [facility] Comment on above: Order Comment: Speci men Type: BLOOD SPECIMEN Performed By: #### 5 8410-2 ####[facility]ATORYCLIA [id number] [address] MCV (RBC) [Entitic vol] 94.5 fL Normal 80.0-100.0 [facility] Comment on above: Order Comment: Speci men Type: BLOOD SPECIMEN Performed By: #### 5 8410-2 ####[facility]ATORYCLIA [id number] [address] Nucleated RBC (Bld) [#/Vol] 10*3/uL Normal <0.01 [facility] Comment on above: Order Comment: Speci men Type: BLOOD SPECIMEN Performed By: #### 5 8410-2 ####[facility]ATORYCLIA [id number] [address] Platelet mean volume (Bld) [Entitic vol] 11.3 fL Normal 9.0-12.7 [facility] Comment on above: Order Comment: Speci men Type: BLOOD SPECIMEN Performed By: #### 5 8410-2 ####[facility]ATORYCLIA [id number] [address] Platelets (Bld) [#/Vol] 269 10*3/uL Normal 150-400 [facility] Comment on above: Order Comment: Speci men Type: BLOOD SPECIMEN Performed By: #### 5 8410-2 ####[facility]ATORYCLIA [id number] [address] RBC (Bld) [#/Vol] 3.63 10*6/uL Low 4.20-6.00 [facility] Comment on above: Order Comment: Speci men Type: BLOOD SPECIMEN Performed By: #### 5 8410-2 ####[facility]ATORYCLIA [id number] [address] WBC (Bld) [#/Vol] 12.77 10*3/uL High 3.70-11.00 [facility] Comment on above: Order Comment: Speci men Type: BLOOD SPECIMEN Performed By: #### 5 8410-2 ####[facility]ATORYCLIA [id number] [address] Gas and Carbon monoxide pane l (BldV)on 06-13-2021 Base excess Calc (BldV) [Moles/Vol] 5.7 mmol/L High 0-2 [facility] Comment on above: Order Comment: Speci men Type: VENOUS BLOOD SPECIMEN Performed By: #### 2 4344-4 ####[facility]ORYCLIA [id number] [address] Body temperature 99.5 [degF] Normal [facility] Comment on above: Order Comment: Speci men Type: VENOUS BLOOD SPECIMEN Performed By: #### 2 4344-4 ####[facility]ORATORYCLIA [id number] [address] CALCIUM IONIZED, PH CORRECTED 1.24 mmol/L Normal 1.08-1.30 [facility] Comment on above: Order Comment: Speci men Type: VENOUS BLOOD SPECIMEN Performed By: #### 2 4344-4 ####[facility]ATORYCLIA [id number] [address] Calcium.ionized (BldV) [Mass/Vol] 1.23 mmol/L Normal 1.08-1.30 [facility] Comment on above: Order Comment: Speci men Type: VENOUS BLOOD SPECIMEN Performed By: #### 2 4344-4 ####[facility]ATORYCLIA [id number] [address] Carboxyhemoglobin (BldV) [Mass fraction] 1.2 % Normal 0.0-2.0 [facility] Comment on above: Order Comment: Speci men Type: VENOUS BLOOD SPECIMEN Result Comment: Carb oxyhemoglobin Reference Range for Smokers: 2.0-8.0% Performed By: #### 2 4344-4 ####[facility]ORYCLIA [id number] [address] CO2 (BldV) [Partial pressure] 48 mm[Hg] Normal 42-55 [facility] Comment on above: Order Comment: Speci men Type: VENOUS BLOOD SPECIMEN Performed By: #### 2 4344-4 ####[facility]ORYCLIA [id number] [address] CO2 [Moles/Vol] 28.2 mmol/L Normal 25-29 [facility] Comment on above: Order Comment: Speci men Type: VENOUS BLOOD SPECIMEN Performed By: #### 2 4344-4 ####[facility]ATORYCLIA [id number] [address] CO2 adjusted to patient's actual temperature (BldV) [Partial pressure] 49 mmHg Normal 42-55 [facility] Comment on above: Order Comment: Speci men Type: VENOUS BLOOD SPECIMEN Performed By: #### 2 4344-4 ####[facility]ORYCLIA [id number] [address] Glucose [Mass/Vol] 131 mg/dL High 60-105 [facility] Comment on above: Order Comment: Speci men Type: VENOUS BLOOD SPECIMEN Performed By: #### 2 4344-4 ####[facility]ORYCLIA [id number] [address] HCO3 (Bld) [Moles/Vol] 30.6 mmol/L High 24-28 [facility] Comment on above: Order Comment: Speci men Type: VENOUS BLOOD SPECIMEN Performed By: #### 2 4344-4 ####[facility]ORYCLIA [id number] [address] Hematocrit (Bld) [Volume fraction] 32.8 % Low 39.0-51.0 [facility] Comment on above: Order Comment: Speci men Type: VENOUS BLOOD SPECIMEN Performed By: #### 2 4344-4 ####[facility]ORYCLIA [id number] [address] Hemoglobin (Bld) [Mass/Vol] 10.6 g/dL Low 13.0-17.0 [facility] Comment on above: Order Comment: Speci men Type: VENOUS BLOOD SPECIMEN Performed By: #### 2 4344-4 ####[facility]ORYCLIA [id number] [address] OF [place] 6 Liters/min Normal [facility] Comment on above: Order Comment: Speci men Type: VENOUS BLOOD SPECIMEN Performed By: #### 2 4344-4 ####[facility]ORYCLIA [id number] [place], [place] [address] [place] [address] OF [place] Methemoglobin (Bld) [Mass fraction] 1.0 % Normal 0.0-1.5 [facility] Comment on above: Order Comment: Speci men Type: VENOUS BLOOD SPECIMEN Performed By: #### 2 4344-4 ####[facility]ORYCLIA [id number] [address] O2 THERAPY NC = Nasal Cannula Normal [facility] Comment on above: Order Comment: Speci men Type: VENOUS BLOOD SPECIMEN Performed By: #### 2 4344-4 ####[facility]ORYCLIA [id number] [address] Oxygen (BldV) [Partial pressure] 42 mm[Hg] Normal 35-45 [facility] Comment on above: Order Comment: Speci men Type: VENOUS BLOOD SPECIMEN Performed By: #### 2 4344-4 ####[facility]ORYCLIA [id number] [address] Oxygen adjusted to patient's actual temperature (BldV) [Partial pressure] 43.8 mmHg Normal 35-45 [facility] Comment on above: Order Comment: Speci men Type: VENOUS BLOOD SPECIMEN Performed By: #### 2 4344-4 ####[facility]ORYCLIA [id number] [address] OF [place] Oxygen saturation in Blood 76.7 % Normal 60-85 [facility] Comment on above: Order Comment: Speci men Type: VENOUS BLOOD SPECIMEN Performed By: #### 2 4344-4 ####[facility]ORYCLIA [id number] [address] Oxyhemoglobin (BldV) [Mass fraction] 75 % Normal 60-85 [facility] Comment on above: Order Comment: Speci men Type: VENOUS BLOOD SPECIMEN Performed By: #### 2 4344-4 ####[facility]ORYCLIA [id number] [address] pH (BldV) 7.42 [pH] Normal 7.32-7.42 [facility] Comment on above: Order Comment: Speci men Type: VENOUS BLOOD SPECIMEN Performed By: #### 2 4344-4 ####[facility]ORYCLIA [id number] [address] pH adjusted to patient's actual temperature (BldV) 7.41 Normal 7.32-7.42 [facility] Comment on above: Order Comment: Speci men Type: VENOUS BLOOD SPECIMEN Performed By: #### 2 4344-4 ####[facility]ORYCLIA [id number] [address] Potassium [Moles/Vol] 3.5 mmol/L Normal 3.5-5.0 [facility] Comment on above: Order Comment: Speci men Type: VENOUS BLOOD SPECIMEN Performed By: #### 2 4344-4 ####[facility]ORYCLIA [id number] [address] STATES OF [facility] Sodium [Moles/Vol] 157 mmol/L High 136-144 [facility] Comment on above: Order Comment: Speci men Type: VENOUS BLOOD SPECIMEN Performed By: #### 2 4344-4 ####[facility]ORYCLIA [id number] [address] STATES [place] Magnesium SerPl-mCncon 06-13 Magnesium [Mass/Vol] 3.0 mg/dL High 1.7-2.3 [facility] Comment on above: Order Comment: Speci men Type: BLOOD SPECIMEN Performed By: #### 2 4321-2, 94497-4, 2776-05 ####[facility]ORYCLIA [id number] [address] OF [facility] Magnesium [Mass/Vol] 2.2 mg/dL Normal 1.7-2.3 [facility] Comment on above: Order Comment: Speci men Type: BLOOD SPECIMEN Performed By: #### 2 4321-2, 2776, ####[facility]ORYCLIA [id number] [place] [address] [place] Phosphate SerPl-mCncon 06-13 Phosphate [Mass/Vol] 2.2 mg/dL Low 2.7-4.8 [facility] Comment on above: Order Comment: Speci men Type: BLOOD SPECIMEN Performed By: #### 2 4321-2, , 2776-05 ####[facility]ATORYCLIA [id number] [place] [address] [place] OF [facility] Phosphate [Mass/Vol] 1.8 mg/dL Low 2.7-4.8 [facility] Comment on above: Order Comment: Speci men Type: BLOOD SPECIMEN Performed By: #### 2 4321-2, 2776-05, ####[facility]ORYCLIA [id number] [address] STATES OF [place] XR CHEST 1V [...] 11-4 ####[facility]ORYCLIA [id number] [place] [address] [place] Basic metabolic 2000 panelon 06-12-2021 Anion gap [Moles/Vol] 6 mmol/L Low 9-18 [facility] Comment on above: Order Comment: Speci men Type: BLOOD SPECIMEN Performed By: #### 2 777-1, 06272-9, ####[facility]ATORYCLIA [id number] [place] [address] [place] Calcium [Mass/Vol] 8.7 mg/dL Normal 8.5-10.2 [facility] Comment on above: Order Comment: Speci men Type: BLOOD SPECIMEN Performed By: #### 2 777-1, 54749-5, ####[facility]ORYCLIA [id number] [address] Chloride [Moles/Vol] 118 mmol/L High 97-105 [facility] Comment on above: Order Comment: Speci men Type: BLOOD SPECIMEN Performed By: #### 2 777-1, 34239-1, ####[facility]ORYCLIA [id number] [address] STATES OF [place] CO2 [Moles/Vol] 28 mmol/L Normal 22-30 [facility] Comment on above: Order Comment: Speci men Type: BLOOD SPECIMEN Performed By: #### 2 777-1, 72623-9, ####[facility]ORYCLIA [id number] [address] STATES OF [place] Creatinine [Mass/Vol] 0.77 mg/dL Normal 0.73-1.22 [facility] Comment on above: Order Comment: Speci men Type: BLOOD SPECIMEN Performed By: #### 2 777-1, , ####[facility]ORYCLIA [id number] [address] [place] GFR/1.73 sq M.predicted MDRD (S/P/Bld) [Vol rate/Area] [...] , ####[facility]ATORYCLIA [id number] [place] [address] [place] Glucose [Mass/Vol] 116 mg/dL High 74-99 [facility] Comment on above: Order Comment: Speci men Type: BLOOD SPECIMEN Result Comment: The [place] Diabetes Association (ADA) provides guidance for cutoff [...] Standards of Medical Care in Diabetes 2016, [place] Diabetes Association. Diabetes Care. 2016.39(Suppl 1). Performed By: #### 2 777-1, , ####[facility]ATORYCLIA [id number] [place] [address] [place] Potassium [Moles/Vol] 4.0 mmol/L Normal 3.7-5.1 [facility] Comment on above: Order Comment: Speci men Type: BLOOD SPECIMEN Performed By: #### 2 777-1, , ####[facility]ATORYCLIA [id number] [place] [address] [place] Sodium [Moles/Vol] 152 mmol/L High 136-144 [facility] Comment on above: Order Comment: Speci men Type: BLOOD SPECIMEN Performed By: #### 2 777-1, , ####[facility]ORYCLIA [id number] [place] [address] [place] Urea nitrogen [Mass/Vol] 34 mg/dL High 9-24 [facility] Comment on above: Order Comment: Speci men Type: BLOOD SPECIMEN Performed By: #### 2 777-1, 40453-9, 88370-7 ####[facility]ATORYCLIA [id number] [address] CBC panel Auto (Bld)on 06-12 Erythrocyte distribution width (RBC) [Ratio] 16.1 % High 11.5-15.0 [facility] Comment on above: Order Comment: Speci men Type: BLOOD SPECIMEN Performed By: #### 5 8410-2 ####[facility]ORYCLIA [id number] [address] Hematocrit (Bld) [Volume fraction] 32.8 % Low 39.0-51.0 [facility] Comment on above: Order Comment: Speci men Type: BLOOD SPECIMEN Performed By: #### 5 8410-2 ####[facility]ORYCLIA [id number] [address] Hemoglobin (Bld) [Mass/Vol] 9.9 g/dL Low 13.0-17.0 [facility] Comment on above: Order Comment: Speci men Type: BLOOD SPECIMEN Performed By: #### 5 8410-2 ####[facility]ORYCLIA [id number] [address] MCH (RBC) [Entitic mass] 28.4 pg Normal 26.0-34.0 [facility] Comment on above: Order Comment: Speci men Type: BLOOD SPECIMEN Performed By: #### 5 8410-2 ####[facility]ORYCLIA [id number] [address] MCHC (RBC) [Mass/Vol] 30.2 g/dL Low 30.5-36.0 [facility] Comment on above: Order Comment: Speci men Type: BLOOD SPECIMEN Performed By: #### 5 8410-2 ####[facility]ORYCLIA [id number] [address] MCV (RBC) [Entitic vol] 94.3 fL Normal 80.0-100.0 [facility] Comment on above: Order Comment: Speci men Type: BLOOD SPECIMEN Performed By: #### 5 8410-2 ####[facility]ORYCLIA [id number] [address] Nucleated RBC (Bld) [#/Vol] 10*3/uL Normal <0.01 [facility] Comment on above: Order Comment: Speci men Type: BLOOD SPECIMEN Performed By: #### 5 8410-2 ####[facility]ORYCLIA [id number] [address] Platelet mean volume (Bld) [Entitic vol] 11.2 fL Normal 9.0-12.7 [facility] Comment on above: Order Comment: Speci men Type: BLOOD SPECIMEN Performed By: #### 5 8410-2 ####[facility]ORYCLIA [id number] [address] Platelets (Bld) [#/Vol] 218 10*3/uL Normal 150-400 [facility] Comment on above: Order Comment: Speci men Type: BLOOD SPECIMEN Performed By: #### 5 8410-2 ####[facility]ATORYCLIA [id number] [address] RBC (Bld) [#/Vol] 3.48 10*6/uL Low 4.20-6.00 [facility] Comment on above: Order Comment: Speci men Type: BLOOD SPECIMEN Performed By: #### 5 8410-2 ####[facility]ORYCLIA [id number] [address] WBC (Bld) [#/Vol] 13.33 10*3/uL High 3.70-11.00 [facility] Comment on above: Order Comment: Speci men Type: BLOOD SPECIMEN Performed By: #### 5 8410-2 ####SELECT [facility]ORYCLIA [id number] [address] CONSULT PROGon 06-12-2021 CONSULT PROG Normal [...] BLOOD SPECIMEN Performed By: #### 2 777-1, 09768-7, 69747-3 ####[facility]ATORYCLIA [id number] [address] PT panel Coag (PPP)on 2021 INR Coag (PPP) [Relative time] 1.1 {INR} Normal 0.9-1.3 [facility] Comment on above: Order Comment: Speci men Type: BLOOD SPECIMEN Result Comment: Yris min K Antagonist (VKA) Therapeutic Range: INR 2 to 3 (Target INR of 2.5)Note: For patients treated with VKA drugs, such as warfarin, the [employer] 2012 Guideline recommends [...] al. Chest 2012, 141:7S-47SNishimura RA, et al. [facility] 2017, 70: 252-289 Performed By: #### 3 4528-0 ####[facility]ATORYCLIA [id number] [place] [id number] [facility] PT Coag (PPP) [Time] 11.9 s Normal 9.7-13.0 [facility] Comment on above: Order Comment: Speci men Type: BLOOD SPECIMEN Performed By: #### 3 4528-0 ####[facility]ATORYCLIA [id number] [address] Phosphate SerPl-mCncon 06-12 Phosphate [Mass/Vol] 2.2 mg/dL Low 2.7-4.8 [facility] Comment on above: Order Comment: Speci men Type: BLOOD SPECIMEN Performed By: #### 2 777-1, 30132-1, 59565-2 ####[facility]ATORYCLIA [id number] [address] XR ABDOMEN 1V SUPINEon 06-12 XR ABDOMEN 1V SUPINE Normal [facility] ALLIED HEALTHon 06-11-2021 ALLIED HEALTH Normal [facility] Bacteria Bld Culton 06-11-19 22 Bacteria identified Cx Nom (Bld) CULTURE, BLOOD: No growth 5 days Normal [facility] Comment on above: Performed By: #### 6 00-7 ####[facility]ATORYCLIA [id number] [address] Bacteria identified Cx Nom (Bld) CULTURE, BLOOD: No growth 5 days Normal [facility] Comment on above: Performed By: #### 6 00-7 ####[facility]ATORYCLIA [id number] [address] Bacteria Ur Culton 2 Bacteria identified Cx Nom (U) CULTURE, URINE: No growth (<1,000 CFU/ml) [facility] Comment on above: Performed By: #### 6 30-4 ####[facility]ATORYCLIA [id number] [address] Basic metabolic 2000 panelon 06-11-2021 Anion gap [Moles/Vol] 9 mmol/L Normal 9-18 [facility] Comment on above: Order Comment: Speci men Type: BLOOD SPECIMEN Performed By: #### 1 9123-9, 2777, 06943-8 ####[facility]ATORYCLIA [id number] [address] STATES [facility] Calcium [Mass/Vol] 8.5 mg/dL Normal 8.5-10.2 [facility] Comment on above: Order Comment: Speci men Type: BLOOD SPECIMEN Performed By: #### 1 9123-9, 2777, 88850-6 ####[facility]ATORYCLIA [id number] [address] Chloride [Moles/Vol] 118 mmol/L High 97-105 [facility] Comment on above: Order Comment: Speci men Type: BLOOD SPECIMEN Performed By: #### 1 9123-9, 2776-05, ####[facility]ATORYCLIA [id number] [address] CO2 [Moles/Vol] 27 mmol/L Normal 22-30 [facility] Comment on above: Order Comment: Speci men Type: BLOOD SPECIMEN Performed By: #### 1 9123-9, 2776-05, ####[facility]ATORYCLIA [id number] [address] STATES OF [facility] Creatinine [Mass/Vol] 0.75 mg/dL Normal 0.73-1.22 [facility] Comment on above: Order Comment: Speci men Type: BLOOD SPECIMEN Performed By: #### 1 9123-9, 27711-04, ####[facility]ATORYCLIA [id number] [address] [place] GFR/1.73 sq M.predicted [...] GFR. Performed By: #### 1 9123-9, 2777-, 92426-4 ####[facility]ATORYCLIA [id number] [address] OF [facility] Glucose [Mass/Vol] 142 mg/dL High 74-99 [facility] Comment on above: Order Comment: Speci men Type: BLOOD SPECIMEN Result Comment: The [place] [employer] (ADA) provides guidance for cutoff [...] Standards of Medical Care in Diabetes 2016, [place] [employer]. Diabetes Care. 2016.39(Suppl 1). Performed By: #### 1 9123-9, 2777, 96906-4 ####[facility]ATORYCLIA [id number] [address] STATES OF [facility] Potassium [Moles/Vol] 3.6 mmol/L Low 3.7-5.1 [facility] Comment on above: Order Comment: Speci men Type: BLOOD SPECIMEN Performed By: #### 1 9123-9, 2777, 69682-5 ####[facility]ATORYCLIA [id number] [address] STATES OF [facility] Sodium [Moles/Vol] 154 mmol/L High 136-144 [facility] Comment on above: Order Comment: Speci men Type: BLOOD SPECIMEN Performed By: #### 1 9123-9, 2777-1, 01406-4 ####[facility]ATORYCLIA [id number] [address] Urea nitrogen [Mass/Vol] 31 mg/dL High 9-24 [facility] Comment on above: Order Comment: Speci men Type: BLOOD SPECIMEN Performed By: #### 1 9123-9, 2777-1, 58155-7 ####[facility]ATORYCLIA [id number] [address] C diff Tox gens Stl Ql MEGAN+p robeon 06-11-2021 C. difficile toxin genes MEGAN+probe Ql (Stl) Negative Normal Negative for C. difficile toxin by PCR [facility] Comment on above: Order Comment: Speci men Type: STOOL SPECIMEN Performed By: #### 5 4067-4 ####[facility]ATORYCLIA [id number] [address] STATES [facility] CBC W Auto Differential pane l (Bld)on 06-11-2021 Basophils (Bld) [#/Vol] 0.03 10*3/uL Normal <0.11 [facility] Comment on above: Order Comment: Speci men Type: BLOOD SPECIMEN Performed By: #### 5 7021-8 ####[facility]ATORYCLIA [id number] [address] Basophils/100 WBC (Bld) 0.2 % Normal [facility] Comment on above: Order Comment: Speci men Type: BLOOD SPECIMEN Performed By: #### 5 7021-8 ####[facility]ATORYCLIA [id number] [address] Differential cell count method Nom (Bld) Auto Normal [facility] Comment on above: Order Comment: Speci men Type: BLOOD SPECIMEN Performed By: #### 5 7021-8 ####[facility]ATORYCLIA [id number] [address] STATES [facility] Eosinophils (Bld) [#/Vol] 0.19 10*3/uL Normal <0.46 [facility] Comment on above: Order Comment: Speci men Type: BLOOD SPECIMEN Performed By: #### 5 7021-8 ####[facility]ATORYCLIA [id number] [address] Eosinophils/100 WBC (Bld) 1.5 % Normal [facility] Comment on above: Order Comment: Speci men Type: BLOOD SPECIMEN Performed By: #### 5 7021-8 ####[facility]ATORYCLIA [id number] [address] Erythrocyte distribution width (RBC) [Ratio] 16.3 % High 11.5-15.0 [facility] Comment on above: Order Comment: Speci men Type: BLOOD SPECIMEN Performed By: #### 5 7021-8 ####[facility]ATORYCLIA [id number] [address] Hematocrit (Bld) [Volume fraction] 32.1 % Low 39.0-51.0 [facility] Comment on above: Order Comment: Speci men Type: BLOOD SPECIMEN Performed By: #### 5 7021-8 ####[facility]ORYCLIA [id number] [address] Hemoglobin (Bld) [Mass/Vol] 9.3 g/dL Low 13.0-17.0 [facility] Comment on above: Order Comment: Speci men Type: BLOOD SPECIMEN Performed By: #### 5 7021-8 ####[facility] LABORATORYCLIA [id number] [address] IMMATURE GRAN % 0.6 % Normal [facility] Comment on above: Order Comment: Speci men Type: BLOOD SPECIMEN Performed By: #### 5 7021-8 ####[facility]ATORYCLIA [id number] [address] IMMATURE GRAN ABS 0.08 k/uL Normal <0.10 [facility] Comment on above: Order Comment: Speci men Type: BLOOD SPECIMEN Performed By: #### 5 7021-8 ####[facility]ATORYCLIA [id number] [address] Lymphocytes (Bld) [#/Vol] 1.65 10*3/uL Normal 1.00-4.00 [facility] Comment on above: Order Comment: Speci men Type: BLOOD SPECIMEN Performed By: #### 5 7021-8 ####[facility]ATORYCLIA [id number] [address] Lymphocytes/100 WBC (Bld) 12.8 % Normal [facility] Comment on above: Order Comment: Speci men Type: BLOOD SPECIMEN Performed By: #### 5 7021-8 ####[facility]ATORYCLIA [id number] [address] MCH (RBC) [Entitic mass] 27.2 pg Normal 26.0-34.0 [facility] Comment on above: Order Comment: Speci men Type: BLOOD SPECIMEN Performed By: #### 5 7021-8 ####[facility]ATORYCLIA [id number] [address] MCHC (RBC) [Mass/Vol] 29.0 g/dL Low 30.5-36.0 [facility] Comment on above: Order Comment: Speci men Type: BLOOD SPECIMEN Performed By: #### 5 7021-8 ####[facility]ATORYCLIA [id number] [address] MCV (RBC) [Entitic vol] 93.9 fL Normal 80.0-100.0 [facility] Comment on above: Order Comment: Speci men Type: BLOOD SPECIMEN Performed By: #### 5 7021-8 ####[facility]ATORYCLIA [id number] [address] Monocytes (Bld) [#/Vol] 0.68 10*3/uL Normal <0.87 [facility] Comment on above: Order Comment: Speci men Type: BLOOD SPECIMEN Performed By: #### 5 7021-8 ####[facility]ORYCLIA [id number] [address] Monocytes/100 WBC (Bld) 5.3 % Normal [facility] Comment on above: Order Comment: Speci men Type: BLOOD SPECIMEN Performed By: #### 5 7021-8 ####[facility]ATORYCLIA [id number] [address] Neutrophils (Bld) [#/Vol] 10.22 10*3/uL High 1.45-7.50 [facility] Comment on above: Order Comment: Speci men Type: BLOOD SPECIMEN Performed By: #### 5 7021-8 ####[facility]ORYCLIA [id number] [address] Neutrophils/100 WBC (Bld) 79.6 % Normal [facility] Comment on above: Order Comment: Speci men Type: BLOOD SPECIMEN Performed By: #### 5 7021-8 ####[facility]ATORYCLIA [id number] [address] Nucleated RBC (Bld) [#/Vol] 10*3/uL Normal <0.01 [facility] Comment on above: Order Comment: Speci men Type: BLOOD SPECIMEN Performed By: #### 5 7021-8 ####[facility]ORYCLIA [id number] [address] Nucleated RBC/100 WBC (Bld) [Ratio] 0.0 /100 WBC Normal 0.0 [facility] Comment on above: Order Comment: Speci men Type: BLOOD SPECIMEN Performed By: #### 5 7021-8 ####[facility]ATORYCLIA [id number] [address] Platelet mean volume (Bld) [Entitic vol] 11.1 fL Normal 9.0-12.7 [facility] Comment on above: Order Comment: Speci men Type: BLOOD SPECIMEN Performed By: #### 5 7021-8 ####[facility]ORATORYCLIA [id number] [address] Platelets (Bld) [#/Vol] 188 10*3/uL Normal 150-400 [facility] Comment on above: Order Comment: Speci men Type: BLOOD SPECIMEN Performed By: #### 5 7021-8 ####[facility]ATORYCLIA [id number] [address] RBC (Bld) [#/Vol] 3.42 10*6/uL Low 4.20-6.00 [facility] Comment on above: Order Comment: Speci men Type: BLOOD SPECIMEN Performed By: #### 5 7021-8 ####[facility]ATORYCLIA [id number] [address] WBC (Bld) [#/Vol] 12.85 10*3/uL High 3.70-11.00 [facility] Comment on above: Order Comment: Speci men Type: BLOOD SPECIMEN Performed By: #### 5 7021-8 ####[facility]ATORYCLIA [id number] [address] CBC panel Auto (Bld)on 06-11 Erythrocyte distribution width (RBC) [Ratio] 16.2 % High 11.5-15.0 [facility] Comment on above: Order Comment: Speci men Type: BLOOD SPECIMEN Performed By: #### 5 8410-2 ####[facility]ATORYCLIA [id number] [address] Hematocrit (Bld) [Volume fraction] 34.5 % Low 39.0-51.0 [facility] Comment on above: Order Comment: Speci men Type: BLOOD SPECIMEN Performed By: #### 5 8410-2 ####[facility]ATORYCLIA [id number] [address] Hemoglobin (Bld) [Mass/Vol] 10.3 g/dL Low 13.0-17.0 [facility] Comment on above: Order Comment: Speci men Type: BLOOD SPECIMEN Performed By: #### 5 8410-2 ####[facility]ATORYCLIA [id number] [address] MCH (RBC) [Entitic mass] 28.1 pg Normal 26.0-34.0 [facility] Comment on above: Order Comment: Speci men Type: BLOOD SPECIMEN Performed By: #### 5 8410-2 ####[facility]ATORYCLIA [id number] [address] MCHC (RBC) [Mass/Vol] 29.9 g/dL Low 30.5-36.0 [facility] Comment on above: Order Comment: Speci men Type: BLOOD SPECIMEN Performed By: #### 5 8410-2 ####[facility]ATORYCLIA [id number] [address] MCV (RBC) [Entitic vol] 94.3 fL Normal 80.0-100.0 [facility] Comment on above: Order Comment: Speci men Type: BLOOD SPECIMEN Performed By: #### 5 8410-2 ####[facility]ATORYCLIA [id number] [address] Nucleated RBC (Bld) [#/Vol] 10*3/uL Normal <0.01 [facility] Comment on above: Order Comment: Speci men Type: BLOOD SPECIMEN Performed By: #### 5 8410-2 ####[facility]ATORYCLIA [id number] [address] Platelet mean volume (Bld) [Entitic vol] 10.9 fL Normal 9.0-12.7 [facility] Comment on above: Order Comment: Speci men Type: BLOOD SPECIMEN Performed By: #### 5 8410-2 ####[facility]ATORYCLIA [id number] [address] Platelets (Bld) [#/Vol] 210 10*3/uL Normal 150-400 [facility] Comment on above: Order Comment: Speci men Type: BLOOD SPECIMEN Performed By: #### 5 8410-2 ####[facility]ORATORYCLIA [id number] [place], [place] [id number] [place] [address] STATES OF [facility] RBC (Bld) [#/Vol] 3.66 10*6/uL Low 4.20-6.00 [facility] Comment on above: Order Comment: Speci men Type: BLOOD SPECIMEN Performed By: #### 5 8410-2 ####[facility]ATORYCLIA [id number] [address] STATES OF [facility] WBC (Bld) [#/Vol] 13.03 10*3/uL High 3.70-11.00 [facility] Comment on above: Order Comment: Speci men Type: BLOOD SPECIMEN Performed By: #### 5 8410-2 ####[facility]ATORYCLIA [id number] [address] CONSULT PROGon 06-11-2021 CONSULT PROG Normal [...] SPECIMEN Performed By: #### 1 9123-9, 2777-1, 62964-2 ####[facility]ATORYCLIA [id number] [address] Phosphate SerPl-mCncon 06-11 Phosphate [Mass/Vol] 2.5 mg/dL Low 2.7-4.8 [facility] Comment on above: Order Comment: Speci men Type: BLOOD SPECIMEN Performed By: #### 1 9123-9, 2777-1, 47251-0 ####[facility]ORATORYCLIA [id number] [address] OF [facility] Basic metabolic 2000 panelon 06-10-2021 Anion gap [Moles/Vol] 7 mmol/L Low 9-18 [facility] Comment on above: Order Comment: Speci men Type: BLOOD SPECIMEN Performed By: #### 2 777-1, 14005-8, , HFP ####[facility] LABORATORYCLIA [id number] [address] STATES OF [facility] Calcium [Mass/Vol] 8.5 mg/dL Normal 8.5-10.2 [facility] Comment on above: Order Comment: Speci men Type: BLOOD SPECIMEN Performed By: #### 2 777-1, 93954-7, , HFP ####[facility]ATORYCLIA [id number] [address] STATES OF [facility] Chloride [Moles/Vol] 118 mmol/L High 97-105 [facility] Comment on above: Order Comment: Speci men Type: BLOOD SPECIMEN Performed By: #### 2 777-1, 86482-3, , HFP ####[facility]ATORYCLIA [id number] [address] [place] CO2 [Moles/Vol] 26 mmol/L Normal 22-30 [facility] Comment on above: Order Comment: Speci men Type: BLOOD SPECIMEN Performed By: #### 2 777-1, 83702-9, , HFP ####[facility]ATORYCLIA [id number] [address] [place] Creatinine [Mass/Vol] 0.70 mg/dL Low 0.73-1.22 [facility] Comment on above: Order Comment: Speci men Type: BLOOD SPECIMEN Performed By: #### 2 777-1, 02696-5, , HFP ####[facility]ATORYCLIA [id number] [address] [place] GFR/1.73 sq M.predicted [...] actual GFR. Performed By: #### 2 777-1, 90227-7, , [facility] ####[facility]ATORYCLIA [id number] [place] [address] [place] Glucose [Mass/Vol] 135 mg/dL High 74-99 [facility] Comment on above: Order Comment: [facility] Type: BLOOD SPECIMEN Result Comment: The [place] Diabetes Association (ADA) provides guidance for cutoff [...] Standards of Medical Care in Diabetes 2016, [place] [employer]. Diabetes Care. 2016.39(Suppl 1). Performed By: #### 2 777-1, 84171-2, , [facility] ####[facility]ATORYCLIA [id number] [place] [address] [place] Potassium [Moles/Vol] 3.9 mmol/L Normal 3.7-5.1 [facility] Comment on above: Order Comment: Speci [facility] Type: BLOOD SPECIMEN Performed By: #### 2 777-1, 06369-6, , [facility] ####[facility]ATORYCLIA [id number] [place], [place] [address] [place] [address] Sodium [Moles/Vol] 151 mmol/L High 136-144 [facility] Comment on above: Order Comment: Speci men Type: BLOOD SPECIMEN Performed By: #### 2 777-1, 40252-3, , [facility] ####[facility]ORATORYCLIA [id number] [place] [id number] [facility] Urea nitrogen [Mass/Vol] 27 mg/dL High 9-24 [facility] Comment on above: Order Comment: Speci men Type: BLOOD SPECIMEN Performed By: #### 2 777-1, 76340-2, , [facility] ####[facility]ATORYCLIA [id number] [address] CASE MANAGEMon 06-10-2021 CASE MANAGEM Normal [facility] CBC panel Auto (Bld)on 06-10 Erythrocyte distribution width (RBC) [Ratio] 16.2 % High 11.5-15.0 [facility] Comment on above: Order Comment: Speci men Type: BLOOD SPECIMEN Performed By: #### 5 8410-2 ####[facility]ATORYCLIA [id number] [address] Hematocrit (Bld) [Volume fraction] 34.8 % Low 39.0-51.0 [facility] Comment on above: Order Comment: Speci men Type: BLOOD SPECIMEN Performed By: #### 5 8410-2 ####[facility]ATORYCLIA [id number] [address] Hemoglobin (Bld) [Mass/Vol] 10.2 g/dL Low 13.0-17.0 [facility] Comment on above: Order Comment: Speci men Type: BLOOD SPECIMEN Performed By: #### 5 8410-2 ####[facility]ATORYCLIA [id number] [address] [place] MCH (RBC) [Entitic mass] 27.1 pg Normal 26.0-34.0 [facility] Comment on above: Order Comment: Speci men Type: BLOOD SPECIMEN Performed By: #### 5 8410-2 ####[facility]ATORYCLIA [id number] [address] MCHC (RBC) [Mass/Vol] 29.3 g/dL Low 30.5-36.0 [facility] Comment on above: Order Comment: Speci men Type: BLOOD SPECIMEN Performed By: #### 5 8410-2 ####[facility]ATORYCLIA [id number] [address] MCV (RBC) [Entitic vol] 92.6 fL Normal 80.0-100.0 [facility] Comment on above: Order Comment: Speci men Type: BLOOD SPECIMEN Performed By: #### 5 8410-2 ####[facility]ATORYCLIA [id number] [address] Nucleated RBC (Bld) [#/Vol] 10*3/uL Normal <0.01 [facility] Comment on above: Order Comment: Speci men Type: BLOOD SPECIMEN Performed By: #### 5 8410-2 ####[facility]ATORYCLIA [id number] [address] Platelet mean volume (Bld) [Entitic vol] 10.4 fL Normal 9.0-12.7 [facility] Comment on above: Order Comment: Speci men Type: BLOOD SPECIMEN Performed By: #### 5 8410-2 ####[facility]ATORYCLIA [id number] [address] Platelets (Bld) [#/Vol] 206 10*3/uL Normal 150-400 [facility] Comment on above: Order Comment: Speci men Type: BLOOD SPECIMEN Performed By: #### 5 8410-2 ####[facility]ATORYCLIA [id number] [address] RBC (Bld) [#/Vol] 3.76 10*6/uL Low 4.20-6.00 [facility] Comment on above: Order Comment: Speci men Type: BLOOD SPECIMEN Performed By: #### 5 8410-2 ####[facility]ATORYCLIA [id number] [address] WBC (Bld) [#/Vol] 11.36 10*3/uL High 3.70-11.00 [facility] Comment on above: Order Comment: Speci men Type: BLOOD SPECIMEN Performed By: #### 5 8410-2 ####[facility]ATORYCLIA [id number] [address] HEPATIC FUNCTION PNLon 06-10 Albumin [Mass/Vol] 3.1 g/dL Low 3.9-4.9 [facility] Comment on above: Order Comment: Speci men Type: BLOOD SPECIMEN Performed By: #### 2 777-1, 37782-6, , HFP ####[facility]ATORYCLIA [id number] [address] ALP [Catalytic activity/Vol] 73 U/L Normal 38-113 [facility] Comment on above: Order Comment: Speci men Type: BLOOD SPECIMEN Performed By: #### 2 777-1, 49533-1, , HFP ####[facility] LABORATORYCLIA [id number] [address] ALT With P-5'-P [Catalytic activity/Vol] 64 U/L High 10-54 [facility] Comment on above: Order Comment: Speci men Type: BLOOD SPECIMEN Performed By: #### 2 777-1, 13365-2, , HFP ####[facility]ATORYCLIA [id number] [address] AST With P-5'-P [Catalytic activity/Vol] 44 U/L High 14-40 [facility] Comment on above: Order Comment: Speci men Type: BLOOD SPECIMEN Performed By: #### 2 777-1, 40746-1, , HFP ####[facility]ATORYCLIA [id number] [address] Bilirubin [Mass/Vol] 0.5 mg/dL Normal 0.2-1.3 [facility] Comment on above: Order Comment: Speci men Type: BLOOD SPECIMEN Performed By: #### 2 777-1, 45578-2, , [facility] ####[facility]ORYCLIA [id number] [address] Bilirubin.conjugated [Mass/Vol] mg/dL Normal <0.2 [facility] Comment on above: Order Comment: Speci men Type: BLOOD SPECIMEN Performed By: #### 2 777-1, 88232-7, , [facility] ####[facility]ORYCLIA [id number] [address] Protein [Mass/Vol] 5.7 g/dL Low 6.3-8.0 [facility] Comment on above: Order Comment: Speci men Type: BLOOD SPECIMEN Performed By: #### 2 777-1, 34995-2, , [facility] ####[facility]ORYCLIA [id number] [address] LEVETIRACETAMon 06-10-2021 levETIRAcetam [Mass/Vol] 57.7 ug/mL [...] its performance characteristics determined by [facility]'s [facility] [place] ([facility]). It has not been cleared or approved by the FDA. [facility] is regulated under CLIA as qualified to perform high complexity testing. This test is used for clinical purposes. It should not be regarded as investigational or for research. Performed By: #### L DARY ####[facility] REFERENCE LABCLIA [id number] [place]IL[id number] [address] [place] Magnesium SerPl-mCncon 06-10 Magnesium [Mass/Vol] 2.7 mg/dL High 1.7-2.3 [facility] Comment on above: Order Comment: Speci men Type: BLOOD SPECIMEN Performed By: #### 2 777-1, 51501-3, , [facility] ####[facility] LABORATORYCLIA [id number] [place] [address] [place] Phosphate SerPl-ncon 06-10 Phosphate [Mass/Vol] 1.8 mg/dL Low 2.7-4.8 [facility] Comment on above: Order Comment: Speci men Type: BLOOD SPECIMEN Performed By: #### 2 777-1, 64079-4, , [facility] ####[facility] LABORATORYCLIA [id number] [place] [address] [place] ALLIED HEALTHon 06-09-2021 [...] 2776-, ####[facility] LABORATORYCLIA [id number] [place] [address] [place] Calcium [Mass/Vol] 8.3 mg/dL Low 8.5-10.2 [facility] Comment on above: Order Comment: Speci men Type: BLOOD SPECIMEN Performed By: #### 2 4321-2, 2776-, ####[facility] LABORATORYCLIA [id number] [place] [address] [place] Chloride [Moles/Vol] 116 mmol/L High 97-105 [facility] Comment on above: Order Comment: Speci men Type: BLOOD SPECIMEN Performed By: #### 2 4321-2, 2776-05, ####[facility] LABORATORYCLIA [id number] [place] [address] [place] CO2 [Moles/Vol] 27 mmol/L Normal 22-30 [facility] Comment on above: Order Comment: Speci men Type: BLOOD SPECIMEN Performed By: #### 2 4321-2, 2776-05, ####[facility] LABORATORYCLIA [id number] [address] STATES OF [facility] Creatinine [Mass/Vol] 0.70 mg/dL Low 0.73-1.22 [facility] Comment on above: Order Comment: Speci men Type: BLOOD SPECIMEN Performed By: #### 2 4321-2, 2776-05, ####[facility] LABORATORYCLIA [id number] [place] [address] [place] [...] GFR. Performed By: #### 2 4321-2, 2777, ####[facility] LABORATORYCLIA [id number] [place] [address] [place] Glucose [Mass/Vol] 123 mg/dL High 74-99 [facility] Comment on above: Order Comment: Speci men Type: BLOOD SPECIMEN Result Comment: The [place] Diabetes Association (ADA) provides guidance for cutoff [...] Standards of Medical Care in Diabetes 2016, [place] [employer]. Diabetes Care. 2016.39(Suppl 1). Performed By: #### 2 4321-2, 2776-05, ####[facility] LABORATORYCLIA [id number] [address] [place] Potassium [Moles/Vol] 3.5 mmol/L Low 3.7-5.1 [facility] Comment on above: Order Comment: Speci men Type: BLOOD SPECIMEN Performed By: #### 2 4321-2, 2776-05, ####[facility] LABORATORYCLIA [id number] [address] [place] Sodium [Moles/Vol] 151 mmol/L High 136-144 [facility] Comment on above: Order Comment: Speci men Type: BLOOD SPECIMEN Performed By: #### 2 4321-2, 2776-05, ####[facility] LABORATORYCLIA [id number] [place] [address] [place] Urea nitrogen [Mass/Vol] 39 mg/dL High 9-24 [facility] Comment on above: Order Comment: Speci men Type: BLOOD SPECIMEN Performed By: #### 2 4321-2, 2776-05, ####[facility] LABORATORYCLIA [id number] [address] CBC panel Auto (Bld)on 06-09 Erythrocyte distribution width (RBC) [Ratio] 16.2 % High 11.5-15.0 [facility] Comment on above: Order Comment: Speci men Type: BLOOD SPECIMEN Performed By: #### 5 8410-2 ####[facility] LABORATORYCLIA [id number] [address] Hematocrit (Bld) [Volume fraction] 33.7 % Low 39.0-51.0 [facility] Comment on above: Order Comment: Speci men Type: BLOOD SPECIMEN Performed By: #### 5 8410-2 ####[facility] LABORATORYCLIA [id number] [address] Hemoglobin (Bld) [Mass/Vol] 10.2 g/dL Low 13.0-17.0 [facility] Comment on above: Order Comment: Speci men Type: BLOOD SPECIMEN Performed By: #### 5 8410-2 ####[facility] LABORATORYCLIA [id number] [address] MCH (RBC) [Entitic mass] 27.4 pg Normal 26.0-34.0 [facility] Comment on above: Order Comment: Speci men Type: BLOOD SPECIMEN Performed By: #### 5 8410-2 ####[facility] LABORATORYCLIA [id number] [address] MCHC (RBC) [Mass/Vol] 30.3 g/dL Low 30.5-36.0 [facility] Comment on above: Order Comment: Speci men Type: BLOOD SPECIMEN Performed By: #### 5 8410-2 ####[facility] LABORATORYCLIA [id number] [address] MCV (RBC) [Entitic vol] 90.6 fL Normal 80.0-100.0 [facility] Comment on above: Order Comment: Speci men Type: BLOOD SPECIMEN Performed By: #### 5 8410-2 ####[facility] LABORATORYCLIA [id number] [address] Nucleated RBC (Bld) [#/Vol] 10*3/uL Normal <0.01 [facility] Comment on above: Order Comment: Speci men Type: BLOOD SPECIMEN Performed By: #### 5 8410-2 ####[facility] LABORATORYCLIA [id number] [address] Platelet mean volume (Bld) [Entitic vol] 10.3 fL Normal 9.0-12.7 [facility] Comment on above: Order Comment: Speci men Type: BLOOD SPECIMEN Performed By: #### 5 8410-2 ####[facility] LABORATORYCLIA [id number] [address] Platelets (Bld) [#/Vol] 219 10*3/uL Normal 150-400 [facility] Comment on above: Order Comment: Speci men Type: BLOOD SPECIMEN Performed By: #### 5 8410-2 ####[facility] LABORATORYCLIA [id number] [address] RBC (Bld) [#/Vol] 3.72 10*6/uL Low 4.20-6.00 [facility] Comment on above: Order Comment: Speci men Type: BLOOD SPECIMEN Performed By: #### 5 8410-2 ####[facility] LABORATORYCLIA [id number] [address] OF [facility] WBC (Bld) [#/Vol] 13.02 10*3/uL High 3.70-11.00 [facility] Comment on above: Order Comment: Speci men Type: BLOOD SPECIMEN Performed By: #### 5 8410-2 ####[facility] LABORATORYCLIA [id number] [address] CONSULT PROGon 06-09-2021 CONSULT PROG Normal [facility] CONSULT PROG Normal [facility] CT BRAIN WO IVCONon 06-09-[address] BRAIN WO IVCON Normal [facility] Magnesium SerPl-mCncon 06-09 Magnesium [Mass/Vol] 2.8 mg/dL High 1.7-2.3 [facility] Comment on above: Order Comment: Speci men Type: BLOOD SPECIMEN Performed By: #### 2 4321-2, 2777-1, 88026-2 ####[facility] LABORATORYCLIA [id number] [address] NURSING PROGon 06-09-2021 NURSING PROG Normal [facility] NUTRITIONon 06-09-2021 NUTRITION Normal [facility] PT EDon 06-09-2021 PT ED Normal [facility] Phosphate SerPl-mCncon 06-09 Phosphate [Mass/Vol] 2.2 mg/dL Low 2.7-4.8 [facility] Comment on above: Order Comment: Speci men Type: BLOOD SPECIMEN Performed By: #### 2 4321-2, 2777-1, ####[facility] LABORATORYCLIA [id number] [address] Vancomycin random [Mass/Vol] on 06-09-2021 Vancomycin [...] 091-5 ####[facility] LABORATORYCLIA [id number] [address] XR ABD 2V SUPINE W UPR/DECUB [...] 1 Rare Staphylococcus saccharolyticus Identification performed by [facility] CC-Main See scanned document for susceptibility report Normal [facility] Comment on above: Performed By: #### 6 462-6 635-3 ####[facility] LABORATORYCLIA [id number] [place] [address] [place] Bacteria Wnd Culton 06-08-19 22 Bacteria identified Cx Nom (Wound) CULTURE, INTRAOPERATIVE HARDWARE: No growth 5 days GRAM STAIN: Not performed on specimen type Normal [facility] Comment on above: Performed By: #### 6 462-6 635-3 ####[facility] LABORATORYCLIA [id number] [place] [address] [place] Basic metabolic 2000 panelon 06-08-2021 Anion gap [Moles/Vol] 9 mmol/L Normal 9-18 [facility] Comment on above: Order Comment: Speci men Type: BLOOD SPECIMEN Performed By: #### 2 4321-2, 2776-05, ####[facility] LABORATORYCLIA [id number] [place] [address] [place] Calcium [Mass/Vol] 8.7 mg/dL Normal 8.5-10.2 [facility] Comment on above: Order Comment: Speci men Type: BLOOD SPECIMEN Performed By: #### 2 4321-2, 2776-05, ####[facility] LABORATORYCLIA [id number] [place] [address] [place] Chloride [Moles/Vol] 113 mmol/L High 97-105 [facility] Comment on above: Order Comment: Speci men Type: BLOOD SPECIMEN Performed By: #### 2 4321-2, 2776-05, ####[facility] LABORATORYCLIA [id number] [place], [place] [address] [place] [address] [place] CO2 [Moles/Vol] 26 mmol/L Normal 22-30 [facility] Comment on above: Order Comment: Speci men Type: BLOOD SPECIMEN Performed By: #### 2 4321-2, 2776-05, ####[facility] LABORATORYCLIA [id number] [address] [place] Creatinine [Mass/Vol] 0.68 mg/dL Low 0.73-1.22 [facility] Comment on above: Order Comment: Speci men Type: BLOOD SPECIMEN Performed By: #### 2 4321-2, 2776-05, ####[facility] LABORATORYCLIA [id number] [address] [place] GFR/1.73 sq M.predicted [...] 2776-05, ####[facility] LABORATORYCLIA [id number] [place], [place] [address] [place] [address] [place] Glucose [Mass/Vol] 146 mg/dL High 74-99 [facility] Comment on above: Order Comment: Speci men Type: BLOOD SPECIMEN Result Comment: The [place] Diabetes Association (ADA) provides guidance for cutoff [...] Standards of Medical Care in Diabetes 2016, [place] Diabetes Association. Diabetes Care. 2016.39(Suppl 1). Performed By: #### 2 4321-2, 2776-05, ####[facility] LABORATORYCLIA [id number] [address] STATES OF [facility] Potassium [Moles/Vol] 3.6 mmol/L Low 3.7-5.1 [facility] Comment on above: Order Comment: Speci men Type: BLOOD SPECIMEN Performed By: #### 2 4321-2, 2776-05, ####[facility] LABORATORYCLIA [id number] [address] STATES OF [facility] Sodium [Moles/Vol] 148 mmol/L High 136-144 [facility] Comment on above: Order Comment: Speci men Type: BLOOD SPECIMEN Performed By: #### 2 4321-2, 2776-05, ####[facility] LABORATORYCLIA [id number] [address] [place] Urea nitrogen [Mass/Vol] 36 mg/dL High 9-24 [facility] Comment on above: Order Comment: Speci men Type: BLOOD SPECIMEN Performed By: #### 2 4321-2, 2776-05, ####[facility] LABORATORYCLIA [id number] [address] [place] CASE MANAGEMon 02-02-2022 CASE MANAGEM Normal [facility] CBC panel Auto (Bld)on 06-08 Erythrocyte distribution width (RBC) [Ratio] 16.0 % High 11.5-15.0 [facility] Comment on above: Order Comment: Speci men Type: BLOOD SPECIMEN Performed By: #### 5 8410-2 ####[facility] LABORATORYCLIA [id number] [address] Hematocrit (Bld) [Volume fraction] 38.4 % Low 39.0-51.0 [facility] Comment on above: Order Comment: Speci men Type: BLOOD SPECIMEN Performed By: #### 5 8410-2 ####[facility] LABORATORYCLIA [id number] [address] Hemoglobin (Bld) [Mass/Vol] 12.1 g/dL Low 13.0-17.0 [facility] Comment on above: Order Comment: Speci men Type: BLOOD SPECIMEN Performed By: #### 5 8410-2 ####[facility] LABORATORYCLIA [id number] [address] MCH (RBC) [Entitic mass] 28.3 pg Normal 26.0-34.0 [facility] Comment on above: Order Comment: Speci men Type: BLOOD SPECIMEN Performed By: #### 5 8410-2 ####[facility] LABORATORYCLIA [id number] [address] MCHC (RBC) [Mass/Vol] 31.5 g/dL Normal 30.5-36.0 [facility] Comment on above: Order Comment: Speci men Type: BLOOD SPECIMEN Performed By: #### 5 8410-2 ####[facility] LABORATORYCLIA [id number] [address] MCV (RBC) [Entitic vol] 89.9 fL Normal 80.0-100.0 [facility] Comment on above: Order Comment: Speci men Type: BLOOD SPECIMEN Performed By: #### 5 8410-2 ####[facility] LABORATORYCLIA [id number] [address] Nucleated RBC (Bld) [#/Vol] 10*3/uL Normal <0.01 [facility] Comment on above: Order Comment: Speci men Type: BLOOD SPECIMEN Performed By: #### 5 8410-2 ####[facility] LABORATORYCLIA [id number] [address] Platelet mean volume (Bld) [Entitic vol] 10.3 fL Normal 9.0-12.7 [facility] Comment on above: Order Comment: Speci men Type: BLOOD SPECIMEN Performed By: #### 5 8410-2 ####[facility] LABORATORYCLIA [id number] [address] Platelets (Bld) [#/Vol] 236 10*3/uL Normal 150-400 [facility] Comment on above: Order Comment: Speci men Type: BLOOD SPECIMEN Performed By: #### 5 8410-2 ####[facility] LABORATORYCLIA [id number] [address] RBC (Bld) [#/Vol] 4.27 10*6/uL Normal 4.20-6.00 [facility] Comment on above: Order Comment: Speci men Type: BLOOD SPECIMEN Performed By: #### 5 8410-2 ####[facility] LABORATORYCLIA [id number] [address] WBC (Bld) [#/Vol] 11.06 10*3/uL High 3.70-11.00 [facility] Comment on above: Order Comment: Speci men Type: BLOOD SPECIMEN Performed By: #### 5 8410-2 ####[facility] LABORATORYCLIA [id number] [address] CONSULT PROGon 06-08-2021 CONSULT PROG Normal [facility] CT BRAIN WO IVCONon 06-08-19 CT BRAIN WO IVCON Normal [facility] Magnesium SerPl-mCncon 02-02 -2022 Magnesium [Mass/Vol] 2.8 mg/dL High 1.7-2.3 [facility] Comment on above: Order Comment: Speci men Type: BLOOD SPECIMEN Performed By: #### 2 4321-2, 2777-1, 52658-1 ####[facility] LABORATORYCLIA [id number] [address] Microorganism Spec Culton Microorganism identified Cx Nom (Unsp spec) CULTURE, FUNGAL: No Fungus isolated after 28 days FUNGAL SMEAR: No fungus seen Normal [facility] Comment on above: Performed By: #### 1 1475-1 ####[facility] LABORATORYCLIA [id number] [address] NURSING PROGon 06-08-2021 NURSING PROG Normal [...] with VKA drugs, such as warfarin, the [place] [employer] 2012 Guideline recommends [...] 70: 252-289 Performed By: #### 3 4528-0, 21227-3 ####[facility] LABORATORYCLIA [id number] [place], [place] [address] [place] [address] OF [facility] PT Coag (PPP) [Time] 11.9 s Normal 9.7-13.0 [facility] Comment on above: Order Comment: Speci men Type: BLOOD SPECIMEN Performed By: #### 3 4528-0, 68109-7 ####[facility] LABORATORYCLIA [id number] [address] OF [facility] Phosphate SerPl-mCncon 06-08 Phosphate [Mass/Vol] 2.3 mg/dL Low 2.7-4.8 [facility] Comment on above: Order Comment: Speci men Type: BLOOD SPECIMEN Performed By: #### 2 4321-2, 2777-1, 76521-3 ####[facility] LABORATORYCLIA [id number] [address] aPTT PPPon 06-08-2021 aPTT Coag (PPP) [Time] 24.2 s Normal 23.0-32.[address] [facility] Comment on above: Order Comment: Speci men Type: BLOOD SPECIMEN Performed By: #### 3 4528-0, 96061-3 ####[facility] LABORATORYCLIA [id number] [address] OF [facility] ALLIED HEALTHon 06-07-2021 ALLIED HEALTH Normal [...] 06-4 ####[facility] LABORATORYCLIA [id number] [address] OF [facility] Basic metabolic 2000 panelon 06-07-2021 Anion gap [Moles/Vol] 9 mmol/L Normal 9-18 [facility] Comment on above: Order Comment: Speci men Type: BLOOD SPECIMEN Performed By: #### 1 9123-9, 27711-04, 87660-5 ####[facility] LABORATORYCLIA [id number] [address] Calcium [Mass/Vol] 8.8 mg/dL Normal 8.5-10.2 [facility] Comment on above: Order Comment: Speci men Type: BLOOD SPECIMEN Performed By: #### 1 9123-9, 2776-05, 41287-7 ####[facility] LABORATORYCLIA [id number] [address] OF [facility] Chloride [Moles/Vol] 111 mmol/L High 97-105 [facility] Comment on above: Order Comment: Speci men Type: BLOOD SPECIMEN Performed By: #### 1 9123-9, 2776-05, 98897-1 ####[facility] LABORATORYCLIA [id number] [address] STATES OF [facility] CO2 [Moles/Vol] 27 mmol/L Normal 22-30 [facility] Comment on above: Order Comment: Speci men Type: BLOOD SPECIMEN Performed By: #### 1 9123-9, 2776-05, 50678-6 ####[facility] LABORATORYCLIA [id number] [address] OF [facility] Creatinine [Mass/Vol] 0.66 mg/dL Low 0.73-1.22 [facility] Comment on above: Order Comment: Speci men Type: BLOOD SPECIMEN Performed By: #### 1 9123-9, 27711-04, ####[facility] LABORATORYCLIA [id number] [place] [address] [place] [...] GFR. Performed By: #### 1 9123-9, 2777-, 83055-4 ####[facility] LABORATORYCLIA [id number] [place] [address] [place] Glucose [Mass/Vol] 123 mg/dL High 74-99 [facility] Comment on above: Order Comment: Speci men Type: BLOOD SPECIMEN Result Comment: The [place] Diabetes Association (ADA) provides guidance for cutoff [...] Standards of Medical Care in Diabetes 2016, [place] [employer]. Diabetes Care. 2016.39(Suppl 1). Performed By: #### 1 9123-9, 2777, 45794-1 ####[facility] LABORATORYCLIA [id number] [address] STATES OF [facility] Potassium [Moles/Vol] 3.6 mmol/L Low 3.7-5.1 [facility] Comment on above: Order Comment: Speci men Type: BLOOD SPECIMEN Performed By: #### 1 9123-9, 2777, 97922-1 ####[facility] LABORATORYCLIA [id number] [address] [place] Sodium [Moles/Vol] 147 mmol/L High 136-144 [facility] Comment on above: Order Comment: Speci men Type: BLOOD SPECIMEN Performed By: #### 1 9123-9, 2777-1, 73823-2 ####[facility]ORATORYCLIA [id number] [address] Urea nitrogen [Mass/Vol] 30 mg/dL High 9-24 [facility] Comment on above: Order Comment: Speci men Type: BLOOD SPECIMEN Performed By: #### 1 9123-9, 2777-1, 47427-5 ####[facility]ATORYCLIA [id number] [address] CBC W Auto Differential pane l (Bld)on 06-07-2021 Basophils (Bld) [#/Vol] 10*3/uL Normal <0.11 [facility] Comment on above: Order Comment: Speci men Type: BLOOD SPECIMEN Performed By: #### 5 7021-8 ####[facility]ORATORYCLIA [id number] [address] Basophils/100 WBC (Bld) 0.2 % Normal [facility] Comment on above: Order Comment: Speci men Type: BLOOD SPECIMEN Performed By: #### 5 7021-8 ####[facility]ORATORYCLIA [id number] [address] Differential cell count method Nom (Bld) Auto Normal [facility] Comment on above: Order Comment: Speci men Type: BLOOD SPECIMEN Performed By: #### 5 7021-8 ####[facility]ATORYCLIA [id number] [address] Eosinophils (Bld) [#/Vol] 0.06 10*3/uL Normal <0.46 [facility] Comment on above: Order Comment: Speci men Type: BLOOD SPECIMEN Performed By: #### 5 7021-8 ####[facility]ATORYCLIA [id number] [address] Eosinophils/100 WBC (Bld) 0.6 % Normal [facility] Comment on above: Order Comment: Speci men Type: BLOOD SPECIMEN Performed By: #### 5 7021-8 ####[facility] LABORATORYCLIA [id number] [address] Erythrocyte distribution width (RBC) [Ratio] 15.8 % High 11.5-15.0 [facility] Comment on above: Order Comment: Speci men Type: BLOOD SPECIMEN Performed By: #### 5 7021-8 ####[facility] LABORATORYCLIA [id number] [address] Hematocrit (Bld) [Volume fraction] 40.4 % Normal 39.0-51.0 [facility] Comment on above: Order Comment: Speci men Type: BLOOD SPECIMEN Performed By: #### 5 7021-8 ####[facility] LABORATORYCLIA [id number] [address] Hemoglobin (Bld) [Mass/Vol] 12.4 g/dL Low 13.0-17.0 [facility] Comment on above: Order Comment: Speci men Type: BLOOD SPECIMEN Performed By: #### 5 7021-8 ####[facility]ATORYCLIA [id number] [address] IMMATURE GRAN % 0.7 % Normal [facility] Comment on above: Order Comment: Speci men Type: BLOOD SPECIMEN Performed By: #### 5 7021-8 ####[facility]ATORYCLIA [id number] [address] IMMATURE GRAN ABS 0.07 k/uL Normal <0.10 [facility] Comment on above: Order Comment: Speci men Type: BLOOD SPECIMEN Performed By: #### 5 7021-8 ####[facility]ATORYCLIA [id number] [address] Lymphocytes (Bld) [#/Vol] 1.43 10*3/uL Normal 1.00-4.00 [facility] Comment on above: Order Comment: Speci men Type: BLOOD SPECIMEN Performed By: #### 5 7021-8 ####[facility]ATORYCLIA [id number] [address] Lymphocytes/100 WBC (Bld) 14.1 % Normal [facility] Comment on above: Order Comment: Speci men Type: BLOOD SPECIMEN Performed By: #### 5 7021-8 ####[facility]ATORYCLIA [id number] [address] MCH (RBC) [Entitic mass] 27.6 pg Normal 26.0-34.0 [facility] Comment on above: Order Comment: Speci men Type: BLOOD SPECIMEN Performed By: #### 5 7021-8 ####[facility]ATORYCLIA [id number] [address] MCHC (RBC) [Mass/Vol] 30.7 g/dL Normal 30.5-36.0 [facility] Comment on above: Order Comment: Speci men Type: BLOOD SPECIMEN Performed By: #### 5 7021-8 ####[facility]ATORYCLIA [id number] [address] MCV (RBC) [Entitic vol] 89.8 fL Normal 80.0-100.0 [facility] Comment on above: Order Comment: Speci men Type: BLOOD SPECIMEN Performed By: #### 5 7021-8 ####[facility]ATORYCLIA [id number] [address] Monocytes (Bld) [#/Vol] 0.82 10*3/uL Normal <0.87 [facility] Comment on above: Order Comment: Speci men Type: BLOOD SPECIMEN Performed By: #### 5 7021-8 ####[facility]ATORYCL[facility] [id number] [address] Monocytes/100 WBC (Bld) 8.1 % Normal [facility] Comment on above: Order Comment: Speci men Type: BLOOD SPECIMEN Performed By: #### 5 7021-8 ####[facility] LABORATORYCLIA [id number] [place] [address] Neutrophils (Bld) [#/Vol] 7.74 10*3/uL High 1.45-7.50 [facility] Comment on above: Order Comment: Speci men Type: BLOOD SPECIMEN Performed By: #### 5 7021-8 ####[facility] LABORATORYCLIA [id number] [address] Neutrophils/100 WBC (Bld) 76.3 % Normal [facility] Comment on above: Order Comment: Speci men Type: BLOOD SPECIMEN Performed By: #### 5 7021-8 ####[facility] LABORATORYCLIA [id number] [address] Nucleated RBC (Bld) [#/Vol] 10*3/uL Normal <0.01 [facility] Comment on above: Order Comment: Speci men Type: BLOOD SPECIMEN Performed By: #### 5 7021-8 ####[facility] LABORATORYCLIA [id number] [address] Nucleated RBC/100 WBC (Bld) [Ratio] 0.0 /100 WBC Normal 0.0 [facility] Comment on above: Order Comment: Speci men Type: BLOOD SPECIMEN Performed By: #### 5 7021-8 ####[facility] LABORATORYCLIA [id number] [address] Platelet mean volume (Bld) [Entitic vol] 10.4 fL Normal 9.0-12.7 [facility] Comment on above: Order Comment: Speci men Type: BLOOD SPECIMEN Performed By: #### 5 7021-8 ####[facility] LABORATORYCLIA [id number] [address] Platelets (Bld) [#/Vol] 236 10*3/uL Normal 150-400 [facility] Comment on above: Order Comment: Speci men Type: BLOOD SPECIMEN Performed By: #### 5 7021-8 ####[facility] LABORATORYCLIA [id number] [place] [address] [place] RBC (Bld) [#/Vol] 4.50 10*6/uL Normal 4.20-6.00 [facility] Comment on above: Order Comment: Speci men Type: BLOOD SPECIMEN Performed By: #### 5 7021-8 ####[facility] LABORATORYCLIA [id number] [address] WBC (Bld) [#/Vol] 10.14 10*3/uL Normal 3.70-11.00 [facility] Comment on above: Order Comment: Speci men Type: BLOOD SPECIMEN Performed By: #### 5 7021-8 ####[facility] LABORATORYCLIA [id number] [address] CBC panel Auto (Bld)on 06-07 Erythrocyte distribution width (RBC) [Ratio] 15.8 % High 11.5-15.0 [facility] Comment on above: Order Comment: Speci men Type: BLOOD SPECIMEN Performed By: #### 5 8410-2 ####[facility] LABORATORYCLIA [id number] [address] Hematocrit (Bld) [Volume fraction] 40.0 % Normal 39.0-51.0 [facility] Comment on above: Order Comment: Speci men Type: BLOOD SPECIMEN Performed By: #### 5 8410-2 ####[facility] LABORATORYCLIA [id number] [address] Hemoglobin (Bld) [Mass/Vol] 12.3 g/dL Low 13.0-17.0 [facility] Comment on above: Order Comment: Speci men Type: BLOOD SPECIMEN Performed By: #### 5 8410-2 ####[facility] LABORATORYCLIA [id number] [address] MCH (RBC) [Entitic mass] 27.3 pg Normal 26.0-34.0 [facility] Comment on above: Order Comment: Speci men Type: BLOOD SPECIMEN Performed By: #### 5 8410-2 ####[place] [facility] LABORATORYCLIA [id number] [address] MCHC (RBC) [Mass/Vol] 30.8 g/dL Normal 30.5-36.0 [facility] Comment on above: Order Comment: Speci men Type: BLOOD SPECIMEN Performed By: #### 5 8410-2 ####[facility] LABORATORYCLIA [id number] [address] MCV (RBC) [Entitic vol] 88.7 fL Normal 80.0-100.0 [facility] Comment on above: Order Comment: Speci men Type: BLOOD SPECIMEN Performed By: #### 5 8410-2 ####[facility] LABORATORYCLIA [id number] [address] Nucleated RBC (Bld) [#/Vol] 10*3/uL Normal <0.01 [facility] Comment on above: Order Comment: Speci men Type: BLOOD SPECIMEN Performed By: #### 5 8410-2 ####[facility] LABORATORYCLIA [id number] [address] Platelet mean volume (Bld) [Entitic vol] 10.0 fL Normal 9.0-12.7 [facility] Comment on above: Order Comment: Speci men Type: BLOOD SPECIMEN Performed By: #### 5 8410-2 ####[facility] LABORATORYCLIA [id number] [address] Platelets (Bld) [#/Vol] 234 10*3/uL Normal 150-400 [facility] Comment on above: Order Comment: Speci men Type: BLOOD SPECIMEN Performed By: #### 5 8410-2 ####[facility] LABORATORYCLIA [id number] [address] RBC (Bld) [#/Vol] 4.51 10*6/uL Normal 4.20-6.00 [facility] Comment on above: Order Comment: Speci men Type: BLOOD SPECIMEN Performed By: #### 5 8410-2 ####[facility] LABORATORYCLIA [id number] [address] OF [place] WBC (Bld) [#/Vol] 11.47 10*3/uL High 3.70-11.00 [facility] Comment on above: Order Comment: Speci men Type: BLOOD SPECIMEN Performed By: #### 5 8410-2 ####[facility] LABORATORYCLIA [id number] [address] CONSULT PROGon 06-07-2021 CONSULT PROG Normal [facility] CONSULT PROG Normal [facility] CSF MANUAL DIFFon 06-07-2021 DIF TTL, CSF 92 cells counted Normal [facility] Comment on above: Order Comment: Speci men Type: CEREBROSPINAL FLUID Performed By: #### 3 4563-7, [id number], [id number] ####[facility] LABORATORYCLIA [id number] [address] EOSIN%, CSF 1 % Normal [facility] Comment on above: Order Comment: Speci men Type: CEREBROSPINAL FLUID Performed By: #### 3 4563-7, [id number], [id number] ####[facility] LABORATORYCLIA [id number] [address] [place] LYMPH%, CSF 21 % Low 50-90 [facility] Comment on above: Order Comment: Speci men Type: CEREBROSPINAL FLUID Performed By: #### 3 4563-7, [id number], [id number] ####[facility] LABORATORYCLIA [id number] [address] [place] MACRO%, CSF 27 % High <1 [facility] Comment on above: Order Comment: Speci men Type: CEREBROSPINAL FLUID Result Comment: Tati ected result: Previously reported as 22 % on 06/07/2021 at 1:49 PM EST. Performed By: #### 3 4563-7, [id number], [id number] ####[facility] LABORATORYCLIA [id number] [address] [place] MONO%, CSF 36 % Normal 10-50 [facility] Comment on above: Order Comment: Speci men Type: CEREBROSPINAL FLUID Performed By: #### 3 4563-7, [id number], [id number] ####[facility] LABORATORYCLIA [id number] [address] [place] NEUT%, CSF 11 % High 0-3 [facility] Comment on above: Order Comment: Speci men Type: CEREBROSPINAL FLUID Performed By: #### 3 4563-7, [id number], [id number] ####[facility] LABORATORYCLIA [id number] [address] OTHER CL%, CSF 4 % Normal [facility] Comment on above: Order Comment: Speci men Type: CEREBROSPINAL FLUID Result Comment: Path review to follow.Corrected result: Previously reported as 10 % on 06/07/2021 at 1:49 PM EST. Performed By: #### 3 4563-7, [id number], [id number] ####[facility] LABORATORYCLIA [id number] [address] CSF PATHOLOGIST INTERP (LAB REFLEX ORDER-NO BILL)on 06-07-2021 CSF STAFF REVIEW Negative for maligna nt cells. Rare immature myeloid or ventricular lining cells. Normal [facility] Comment on above: Order Comment: Speci men Type: CEREBROSPINAL FLUID Performed By: #### 3 4563-7, [id number], [id number] ####[facility] LABORATORYCLIA [id number] [address] Pathologist name Reviewed by Eloise rebolledo MD [facility] Comment on above: Order Comment: Speci men Type: CEREBROSPINAL FLUID Performed By: #### 3 4563-7, [id number], [id number] ####[facility] LABORATORYCLIA [id number] [address] BRAIN WO IVCONon 06-07-19 CT BRAIN WO IVCON Normal [facility] CT BRAIN WO IVCON Normal [facility] Cell count panel (CSF)on Clarity (CSF) Clear Normal Clear [facility] Comment on above: Order Comment: Speci men Type: CEREBROSPINAL FLUID Performed By: #### 3 4563-7, [id number], [id number] ####[facility] LABORATORYCLIA [id number] [address] Clarity (Unsp spec) Not Indicated Normal Clear [facility] Comment on above: Order Comment: Speci men Type: CEREBROSPINAL FLUID Performed By: #### 3 4563-7, [id number], [id number] ####[facility] LABORATORYCLIA [id number] [address] Color (CSF) Colorless Normal Colorless [facility] Comment on above: Order Comment: Speci men Type: CEREBROSPINAL FLUID Performed By: #### 3 4563-7, [id number], [id number] ####[facility] LABORATORYCLIA [id number] [address] Color (Spun CSF) Not Indicated Normal Colorless [facility] Comment on above: Order Comment: Speci men Type: CEREBROSPINAL FLUID Performed By: #### 3 4563-7, [id number], [id number] ####[facility] LABORATORYCLIA [id number] [address] CSF TUBE NUMBER [employer] Normal [facility] Comment on above: Order Comment: Speci men Type: CEREBROSPINAL FLUID Performed By: #### 3 4563-7, [id number], OSG2211 ####[facility] LABORATORYCLIA [id number] [address] RBC Manual cnt (CSF) [#/Vol] 42 cells/uL High 0-5 [facility] Comment on above: Order Comment: Speci men Type: CEREBROSPINAL FLUID Performed By: #### 3 4563-7, [id number], [id number] ####[place] [facility] LABORATORYCLIA [id number] [address] WBC Manual cnt (CSF) [#/Vol] 1 cells/uL Normal 0-5 [facility] Comment on above: Order Comment: Speci men Type: CEREBROSPINAL FLUID Performed By: #### 3 4563-7, [id number], [id number] ####[facility] LABORATORYCLIA [id number] [address] STATES [place] Glucose CSF-mCncon 2 [...] Glucose HK (GLUC3) [package insert V 12.0 [place]]. [employer], [place], [place]. September 2015. 2. Michelle Moore, Loki HGarfield (2015). Chapter 7: Glucose and Lactate. Marianela Rothman.(eds.), Cerebrospinal Fluid in Clinical Neurology. [place]: [employer]. Performed By: #### 2 880-3, 2342-4 ####[facility] LABORATORYCLIA [id number] [address] STATES OF [facility] Lactate (Bld) [Moles/Vol]on 06-07-2021 Lactate [Moles/Vol] 0.9 mmol/L Normal 0.5-2.2 [facility] Comment on above: Order Comment: Speci men Type: BLOOD SPECIMEN Performed By: #### 3 2693-4 ####[facility] LABORATORYCLIA [id number] [address] STATES [place] Lipase SerPl-cCncon 06-07-19 22 Lipase [Catalytic activity/Vol] 35 U/L Normal 16-61 [facility] Comment on above: Order Comment: Speci men Type: BLOOD SPECIMEN Performed By: #### 3 040-3, PROCAL ####[facility] LABORATORYCLIA [id number] [address] [place] Magnesium SerPl-mCncon 06-07 Magnesium [Mass/Vol] 2.7 mg/dL High 1.7-2.3 [facility] Comment on above: Order Comment: Speci men Type: BLOOD SPECIMEN Performed By: #### 1 9123-9, 2777-1, 70410-5 ####[facility] LABORATORYCLIA [id number] [address] PROCALCITONIN (LAB)on 2021 Procalcitonin [Mass/Vol] 0.13 ng/mL High <0.09 [facility] Comment on above: Order Comment: Speci men Type: BLOOD SPECIMEN Result Comment: For a guided interpretation of test results, please visit the [facility] in Procalcitonin Calculator, [email or web address]. Performed By: #### 3 040-3, PROCAL ####[facility] [id number] [address] OF [facility] Phosphate SerPl-ncon 06-07 Phosphate [Mass/Vol] 1.9 mg/dL Low 2.7-4.8 [facility] Comment on above: Order Comment: Speci men Type: BLOOD SPECIMEN Performed By: #### 1 9123-9, 2777-1, 00475-8 ####[facility]ITAL[facility] [id number] [address] Prot CSF-mCncon 06-07-2021 Protein (CSF) [Mass/Vol] 33 mg/dL Normal 15-45 [facility] Comment on above: Order Comment: Speci men Type: CEREBROSPINAL FLUID Performed By: #### 2 880-3, 2342-4 ####[facility] LABORATORYCLIA [id number] [address] SARS-CoV-2 RNA Resp Ql MEGAN+p robeon 06-07-2021 SARS-CoV-2 (COVID-19) RNA MEGAN+probe Ql (Resp) COVID 19 RESULT: SARS-CoV-2 (Agent of COVID-19) Not Detected by PCR. This test has been authorized by FDA under an Emergency Use Authorization (EUA). Normal [facility] Comment on above: Performed By: #### 9 4500-6 ####[facility] LABORATORYCLIA [id number] [place] [address] [facility] TYPE AND SCREENon 06-07-2021 ABO O Normal [facility] Comment on above: Order Comment: Speci men Type: BLOOD SPECIMEN Performed By: #### T SCR ####[facility] BLOOD BANKCLIA [id number] [place] [id number] [facility] HISTORICAL AB SCR STATUS Negative Normal [facility] Comment on above: Order Comment: Speci men Type: BLOOD SPECIMEN Performed By: #### T SCR ####[facility] BLOOD BANKCLIA [id number] [address] Rh Nom (Bld) Positive Normal [facility] Comment on above: Order Comment: Speci men Type: BLOOD SPECIMEN Performed By: #### T SCR ####[facility] BLOOD BANKCLIA [id number] [address] TYPE AND SCREEN EXPIRATION 06/10/2021 23:59 Normal [facility] Comment on above: Order Comment: Speci men Type: BLOOD SPECIMEN Performed By: #### T SCR ####[facility] BLOOD BANKCLIA [id number] [address] Vancomycin random [Mass/Vol] on 06-07-2021 Vancomycin [...] 091-5 ####[facility] LABORATORYCLIA [id number] [address] XR CHEST 1V FRONTAL PORTon 0 06-07-2021 XR CHEST 1V FRONTAL PORT Normal [facility] Basic metabolic 2000 panelon 06-06-2021 Anion gap [Moles/Vol] 11 mmol/L Normal 9-18 [facility] Comment on above: Order Comment: Speci men Type: BLOOD SPECIMEN Performed By: #### 2 4321-2, , 2776-05 ####[facility] LABORATORYCLIA [id number] [address] STATES [facility] Calcium [Mass/Vol] 8.6 mg/dL Normal 8.5-10.2 [facility] Comment on above: Order Comment: Speci men Type: BLOOD SPECIMEN Performed By: #### 2 4321-2, , 2776-05 ####[facility] LABORATORYCLIA [id number] [address] [place] Chloride [Moles/Vol] 108 mmol/L High 97-105 [facility] Comment on above: Order Comment: Speci men Type: BLOOD SPECIMEN Performed By: #### 2 4321-2, , 2776-05 ####[facility] LABORATORYCLIA [id number] [address] [place] CO2 [Moles/Vol] 25 mmol/L Normal 22-30 [facility] Comment on above: Order Comment: Speci men Type: BLOOD SPECIMEN Performed By: #### 2 4321-2, , 2776-05 ####[facility] LABORATORYCLIA [id number] [address] STATES OF [facility] Creatinine [Mass/Vol] 0.76 mg/dL Normal 0.73-1.22 [facility] Comment on above: Order Comment: Speci men Type: BLOOD SPECIMEN Performed By: #### 2 4321-2, , 2776-05 ####[facility] LABORATORYCLIA [id number] [place] [address] [place] [...] has been calibrated to be traceable to IDN[place]. An eGFR <60 mL/min/1.73m2 for >3 months is consistent with chronic kidney disease. Refer to KDOQI guidelines for clinical interpretation. In patients with unstable renal function, e.g. those with acute kidney injury, the eGFR may not accurately reflect actual GFR. Performed By: #### 2 4321-2, , 2776-05 ####[facility] LABORATORYCLIA [id number] [place] [address] [place] Glucose [Mass/Vol] 116 mg/dL High 74-99 [facility] Comment on above: Order Comment: Speci men Type: BLOOD SPECIMEN Result Comment: The [place] Diabetes Association (ADA) provides guidance for cutoff [...] Standards of Medical Care in Diabetes 2016, [place] Diabetes Association. Diabetes Care. 2016.39(Suppl 1). Performed By: #### 2 4321-2, , 2776-05 ####[facility] LABORATORYCLIA [id number] [place] [address] [place] Potassium [Moles/Vol] 3.5 mmol/L Low 3.7-5.1 [facility] Comment on above: Order Comment: Speci men Type: BLOOD SPECIMEN Performed By: #### 2 4321-2, , 2776-05 ####[facility] LABORATORYCLIA [id number] [place] [address] [place] Sodium [Moles/Vol] 144 mmol/L Normal 136-144 [facility] Comment on above: Order Comment: Speci men Type: BLOOD SPECIMEN Performed By: #### 2 4321-2, 02259-8, 2776-05 ####[facility] LABORATORYCLIA [id number] [address] Urea nitrogen [Mass/Vol] 31 mg/dL High 9-24 [facility] Comment on above: Order Comment: Speci men Type: BLOOD SPECIMEN Performed By: #### 2 4321-2, , 2776-05 ####[facility] LABORATORYCLIA [id number] [address] CASE MANAGEMon 06-06-2021 CASE MANAGEM Normal [facility] CBC panel Auto (Bld)on 06-06 Erythrocyte distribution width (RBC) [Ratio] 15.8 % High 11.5-15.0 [facility] Comment on above: Order Comment: Speci men Type: BLOOD SPECIMEN Performed By: #### 5 8410-2 ####[facility] LABORATORYCLIA [id number] [address] Hematocrit (Bld) [Volume fraction] 39.5 % Normal 39.0-51.0 [facility] Comment on above: Order Comment: Speci men Type: BLOOD SPECIMEN Performed By: #### 5 8410-2 ####[facility] LABORATORYCLIA [id number] [address] Hemoglobin (Bld) [Mass/Vol] 12.2 g/dL Low 13.0-17.0 [facility] Comment on above: Order Comment: Speci men Type: BLOOD SPECIMEN Performed By: #### 5 8410-2 ####[facility] LABORATORYCLIA [id number] [address] MCH (RBC) [Entitic mass] 27.8 pg Normal 26.0-34.0 [facility] Comment on above: Order Comment: Speci men Type: BLOOD SPECIMEN Performed By: #### 5 8410-2 ####[facility] LABORATORYCLIA [id number] [address] MCHC (RBC) [Mass/Vol] 30.9 g/dL Normal 30.5-36.0 [facility] Comment on above: Order Comment: Speci men Type: BLOOD SPECIMEN Performed By: #### 5 8410-2 ####[facility] LABORATORYCLIA [id number] [address] MCV (RBC) [Entitic vol] 90.0 fL Normal 80.0-100.0 [facility] Comment on above: Order Comment: Speci men Type: BLOOD SPECIMEN Performed By: #### 5 8410-2 ####[facility] LABORATORYCLIA [id number] [address] Nucleated RBC (Bld) [#/Vol] 10*3/uL Normal <0.01 [facility] Comment on above: Order Comment: Speci men Type: BLOOD SPECIMEN Performed By: #### 5 8410-2 ####[facility] LABORATORYCLIA [id number] [address] Platelet mean volume (Bld) [Entitic vol] 10.4 fL Normal 9.0-12.7 [facility] Comment on above: Order Comment: Speci men Type: BLOOD SPECIMEN Performed By: #### 5 8410-2 ####[facility] LABORATORYCLIA [id number] [address] Platelets (Bld) [#/Vol] 236 10*3/uL Normal 150-400 [facility] Comment on above: Order Comment: Speci men Type: BLOOD SPECIMEN Performed By: #### 5 8410-2 ####[facility] LABORATORYCLIA [id number] [address] RBC (Bld) [#/Vol] 4.39 10*6/uL Normal 4.20-6.00 [facility] Comment on above: Order Comment: Speci men Type: BLOOD SPECIMEN Performed By: #### 5 8410-2 ####[facility] LABORATORYCLIA [id number] [place], [place] [id number] [place] [address] WBC (Bld) [#/Vol] 9.74 10*3/uL Normal 3.70-11.00 [facility] Comment on above: Order Comment: Speci men Type: BLOOD SPECIMEN Performed By: #### 5 8410-2 ####[facility] LABORATORYCLIA [id number] [place] [address] [facility] CONSULT PROGon 06-06-2021 CONSULT PROG Normal [facility] CONSULT PROG Normal [facility] Magnesium SerPl-mCncon 06-06 Magnesium [Mass/Vol] 2.5 mg/dL High 1.7-2.3 [facility] Comment on above: Order Comment: Speci men Type: BLOOD SPECIMEN Performed By: #### 2 4321-2, 93823-0, 2777-1 ####[facility] LABORATORYCLIA [id number] [address] PT panel Coag (PPP)on 2021 INR Coag (PPP) [Relative time] 1.0 {INR} Normal 0.9-1.3 [facility] Comment on above: Order Comment: Speci men Type: BLOOD SPECIMEN Result Comment: Yris min K Antagonist (VKA) Therapeutic Range: INR 2 to 3 (Target INR of 2.5)Note: For patients treated with VKA drugs, such as warfarin, the [place] [employer] 2012 Guideline recommends [...] 70: 252-289 Performed By: #### 3 4528-0, 87451-0 ####[facility] LABORATORYCLIA [id number] [address] PT Coag (PPP) [Time] 11.4 s Normal 9.7-13.0 [facility] Comment on above: Order Comment: Speci men Type: BLOOD SPECIMEN Performed By: #### 3 4528-0, 73449-2 ####[facility] LABORATORYCLIA [id number] [address] Phosphate SerPl-mCncon 06-06 Phosphate [Mass/Vol] 2.3 mg/dL Low 2.7-4.8 [facility] Comment on above: Order Comment: Speci men Type: BLOOD SPECIMEN Performed By: #### 2 4321-2, 20706-6, 2777-1 ####[facility] LABORATORYCLIA [id number] [address] THROMBOGRAPH HEPARINASE PANE [place] 06-06-2021 Clot angle after addition of heparinase TEG (Bld) [Angle] 70.2 degrees Normal 47.0-74.0 [facility] Comment on above: Order Comment: Speci men Type: BLOOD SPECIMEN Performed By: #### T EGHPP ####[facility] LABORATORYCLIA [id number] [address] Clot Lysis 30 Min post maximum clot amplitude TEG (Bld) [Length fraction] 0.0 % Normal 0.0-8.0 [facility] Comment on above: Order Comment: Speci men Type: BLOOD SPECIMEN Performed By: #### T EGHPP ####[facility] LABORATORYCLIA [id number] [address] Clotting time after addition of heparinase TEG (Bld) 5.7 minutes Normal 4.0-10.0 [facility] Comment on above: Order Comment: Speci men Type: BLOOD SPECIMEN Performed By: #### T EGHPP ####[facility] LABORATORYCLIA [id number] [address] Coagulation index TEG Qn (Bld) 1.2 Normal -4.6-3.2 [facility] Comment on above: Order Comment: Speci men Type: BLOOD SPECIMEN Result Comment: The Coagulation Index, a secondary parameter, is labeled by the cigar packer and grader as for "research use only" and is used per the cigar packer and grader's instructions. Its performance characteristics were determined by [facility]'s [facility] [place] in a manner consistent with CLIA requirements. This test has not been cleared by the U.[place]. Food and Drug Administration. Performed By: #### T EGHPP ####[facility] LABORATORYCLIA [id number] [address] Maximum clot firmness after addition of heparinase TEG (Bld) [Length] 64.0 mm Normal 51.0-75.0 [facility] Comment on above: Order Comment: Speci men Type: BLOOD SPECIMEN Performed By: #### T EGHPP ####[facility]ORATORYCLIA [id number] [address] OF [facility] Vancomycin random [Mass/Vol] on 06-06-2021 Vancomycin [...] 091-5 ####[facility] LABORATORYCLIA [id number] [address] STATES OF [facility] Vancomycin [Mass/Vol] 13.5 ug/mL Normal 10.0-20.0 [facility] Comment on above: Order Comment: Speci men Type: BLOOD SPECIMEN Result Comment: Refe rence ranges and high/low indicator flags are provided as general guidelines only. The treating physician must determine appropriate target levels/dosing based on the specific clinical situation. Performed By: #### 4 091-5 ####[facility] LABORATORYCLIA [id number] [address] [place] aPTT PPPon 06-06-2021 aPTT Coag (PPP) [Time] 27.8 s Normal 23.0-32.[address] [facility] Comment on above: Order Comment: Speci men Type: BLOOD SPECIMEN Performed By: #### 3 4528-0, 36546-4 ####[facility] LABORATORYCLIA [id number] [address] [place] Basic metabolic 2000 panelon 06-05-2021 Anion gap [Moles/Vol] 11 mmol/L Normal 9-18 [facility] Comment on above: Order Comment: Speci men Type: BLOOD SPECIMEN Performed By: #### 1 9123-9, 30236-7, 2776- ####[facility] LABORATORYCLIA [id number] [place] [address] [place] Calcium [Mass/Vol] 8.6 mg/dL Normal 8.5-10.2 [facility] Comment on above: Order Comment: Speci men Type: BLOOD SPECIMEN Performed By: #### 1 9123-9, 08634-2, 2776- ####[facility]ORATORYCLIA [id number] [address] STATES OF [facility] Chloride [Moles/Vol] 108 mmol/L High 97-105 [facility] Comment on above: Order Comment: Speci men Type: BLOOD SPECIMEN Performed By: #### 1 9123-9, 34625-6, 2776- ####[facility]ATORYCLIA [id number] [place] [address] [place] CO2 [Moles/Vol] 25 mmol/L Normal 22-30 [facility] Comment on above: Order Comment: Speci men Type: BLOOD SPECIMEN Performed By: #### 1 9123-9, 85175-9, 2776- ####[facility]ATORYCLIA [id number] [place] [address] [place] Creatinine [Mass/Vol] 0.77 mg/dL Normal 0.73-1.22 [facility] Comment on above: Order Comment: [facility] Type: BLOOD SPECIMEN Performed By: #### 1 9123-9, 14700-4, 2777-1 ####[facility] LABORATORYCLIA [id number] [place] [address] [place] [...] actual GFR. Performed By: #### 1 9123-9, 53562-3, 2777-1 ####[facility] [id number] [place] [address] [place] Glucose [Mass/Vol] 96 mg/dL Normal 74-99 [facility] Comment on above: Order Comment: [facility] Type: BLOOD SPECIMEN Result Comment: The [place] Diabetes Association (ADA) provides guidance for cutoff [...] Standards of Medical Care in Diabetes 2016, [place] Diabetes Association. Diabetes Care. 2016.39(Suppl 1). Performed By: #### 1 9123-9, 81927-1, 2776-05 ####[facility] LABORATORYCLIA [id number] [address] STATES [facility] Potassium [Moles/Vol] 3.9 mmol/L Normal 3.7-5.1 [facility] Comment on above: Order Comment: Speci men Type: BLOOD SPECIMEN Performed By: #### 1 9123-9, 36613-2, 2776- ####[facility]ATORYCLIA [id number] [address] Sodium [Moles/Vol] 144 mmol/L Normal 136-144 [facility] Comment on above: Order Comment: Speci men Type: BLOOD SPECIMEN Performed By: #### 1 91239, 76011-0, 2776-05 ####[facility]ORATORYCLIA [id number] [address] Urea nitrogen [Mass/Vol] 26 mg/dL High 9-24 [facility] Comment on above: Order Comment: Speci men Type: BLOOD SPECIMEN Performed By: #### 1 9123-9, , 2776-05 ####[facility]ORATORYCLIA [id number] [address] CBC panel Auto (Bld)on 06-05 Erythrocyte distribution width (RBC) [Ratio] 15.9 % High 11.5-15.0 [facility] Comment on above: Order Comment: Speci men Type: BLOOD SPECIMEN Performed By: #### 5 8410-2 ####[facility]ATORYCLIA [id number] [address] Hematocrit (Bld) [Volume fraction] 39.6 % Normal 39.0-51.0 [facility] Comment on above: Order Comment: Speci men Type: BLOOD SPECIMEN Performed By: #### 5 8410-2 ####[facility] LABORATORYCLIA [id number] [address] Hemoglobin (Bld) [Mass/Vol] 12.3 g/dL Low 13.0-17.0 [facility] Comment on above: Order Comment: Speci men Type: BLOOD SPECIMEN Performed By: #### 5 8410-2 ####[facility]ORATORYCLIA [id number] [address] MCH (RBC) [Entitic mass] 28.1 pg Normal 26.0-34.0 [facility] Comment on above: Order Comment: Speci men Type: BLOOD SPECIMEN Performed By: #### 5 8410-2 ####[facility]ATORYCLIA [id number] [address] MCHC (RBC) [Mass/Vol] 31.1 g/dL Normal 30.5-36.0 [facility] Comment on above: Order Comment: Speci men Type: BLOOD SPECIMEN Performed By: #### 5 8410-2 ####[facility]ATORYCLIA [id number] [address] MCV (RBC) [Entitic vol] 90.4 fL Normal 80.0-100.0 [facility] Comment on above: Order Comment: Speci men Type: BLOOD SPECIMEN Performed By: #### 5 8410-2 ####[facility]ORATORYCLIA [id number] [address] Nucleated RBC (Bld) [#/Vol] 10*3/uL Normal <0.01 [facility] Comment on above: Order Comment: Speci men Type: BLOOD SPECIMEN Performed By: #### 5 8410-2 ####[facility]ORATORYCLIA [id number] [address] Platelet mean volume (Bld) [Entitic vol] 10.5 fL Normal 9.0-12.7 [facility] Comment on above: Order Comment: Speci men Type: BLOOD SPECIMEN Performed By: #### 5 8410-2 ####[facility]ORATORYCLIA [id number] [address] Platelets (Bld) [#/Vol] 224 10*3/uL Normal 150-400 [facility] Comment on above: Order Comment: Speci men Type: BLOOD SPECIMEN Performed By: #### 5 8410-2 ####[facility] LABORATORYCLIA [id number] [address] RBC (Bld) [#/Vol] 4.38 10*6/uL Normal 4.20-6.00 [facility] Comment on above: Order Comment: Speci men Type: BLOOD SPECIMEN Performed By: #### 5 8410-2 ####[facility] LABORATORYCLIA [id number] [address] OF [facility] WBC (Bld) [#/Vol] 9.66 10*3/uL Normal 3.70-11.00 [facility] Comment on above: Order Comment: Speci men Type: BLOOD SPECIMEN Performed By: #### 5 8410-2 ####[facility]ORATORYCLIA [id number] [address] CONSULT PROGon 06-05-2021 CONSULT PROG Normal [facility] Gas and Carbon monoxide pane l (BldV)on 06-05-2021 Base excess Calc (BldV) [Moles/Vol] 1.8 mmol/L Normal 0-2 [facility] Comment on above: Order Comment: Speci men Type: VENOUS BLOOD SPECIMEN Performed By: #### 2 4344-4 ####[facility]ORATORYCLIA [id number] [address] Body temperature 100.4 [degF] Normal [facility] Comment on above: Order Comment: Speci men Type: VENOUS BLOOD SPECIMEN Performed By: #### 2 4344-4 ####[facility]ORATORYCLIA [id number] [address] CALCIUM IONIZED, PH CORRECTED 1.21 mmol/L Normal 1.08-1.30 [facility] Comment on above: Order Comment: Speci men Type: VENOUS BLOOD SPECIMEN Performed By: #### 2 4344-4 ####[facility]ATORYCLIA [id number] [address] Calcium.ionized (BldV) [Mass/Vol] 1.19 mmol/L Normal 1.08-1.30 [facility] Comment on above: Order Comment: Speci men Type: VENOUS BLOOD SPECIMEN Performed By: #### 2 4344-4 ####[facility]ATORYCLIA [id number] [address] Carboxyhemoglobin (BldV) [Mass fraction] 1.0 % Normal 0.0-2.0 [facility] Comment on above: Order Comment: Speci men Type: VENOUS BLOOD SPECIMEN Result Comment: Carb oxyhemoglobin Reference Range for Smokers: 2.0-8.0% Performed By: #### 2 4344-4 ####[facility]ATORYCLIA [id number] [address] CO2 (BldV) [Partial pressure] 41 mm[Hg] Low 42-55 [facility] Comment on above: Order Comment: Speci men Type: VENOUS BLOOD SPECIMEN Performed By: #### 2 4344-4 ####[facility]ATORYCLIA [id number] [address] CO2 [Moles/Vol] 23.4 mmol/L Low 25-29 [facility] Comment on above: Order Comment: Speci men Type: VENOUS BLOOD SPECIMEN Performed By: #### 2 4344-4 ####[facility]ATORYCLIA [id number] [address] CO2 adjusted to patient's actual temperature (BldV) [Partial pressure] 43 mmHg Normal 42-55 [facility] Comment on above: Order Comment: Speci men Type: VENOUS BLOOD SPECIMEN Performed By: #### 2 4344-4 ####[facility]ORATORYCLIA [id number] [address] Glucose [Mass/Vol] 101 mg/dL Normal 60-105 [facility] Comment on above: Order Comment: Speci men Type: VENOUS BLOOD SPECIMEN Performed By: #### 2 4344-4 ####[facility]ATORYCLIA [id number] [place], [place] [id number] [place] [address] [place] HCO3 (Bld) [Moles/Vol] 26.0 mmol/L Normal 24-28 [facility] Comment on above: Order Comment: Speci men Type: VENOUS BLOOD SPECIMEN Performed By: #### 2 4344-4 ####[facility] LABORATORYCLIA [id number] [address] OF [place] Hematocrit (Bld) [Volume fraction] 38.4 % Low 39.0-51.0 [facility] Comment on above: Order Comment: Speci men Type: VENOUS BLOOD SPECIMEN Performed By: #### 2 4344-4 ####[facility]ORATORYCLIA [id number] [address] OF [facility] Hemoglobin (Bld) [Mass/Vol] 12.5 g/dL Low 13.0-17.0 [facility] Comment on above: Order Comment: Speci men Type: VENOUS BLOOD SPECIMEN Performed By: #### 2 4344-4 ####[facility]ORATORYCLIA [id number] [address] STATES OF [facility] Methemoglobin (Bld) [Mass fraction] % Normal 0.0-1.5 [facility] Comment on above: Order Comment: Speci men Type: VENOUS BLOOD SPECIMEN Performed By: #### 2 4344-4 ####[facility]ATORYCLIA [id number] [address] OF [place] O2 THERAPY Ventilator Normal [facility] Comment on above: Order Comment: Speci men Type: VENOUS BLOOD SPECIMEN Performed By: #### 2 4344-4 ####[facility]ATORYCLIA [id number] [address] Oxygen (BldV) [Partial pressure] 44 mm[Hg] Normal 35-45 [facility] Comment on above: Order Comment: Speci men Type: VENOUS BLOOD SPECIMEN Performed By: #### 2 4344-4 ####[facility] LABORATORYCLIA [id number] [address] Oxygen adjusted to patient's actual temperature (BldV) [Partial pressure] 46.8 mmHg High 35-45 [facility] Comment on above: Order Comment: Speci men Type: VENOUS BLOOD SPECIMEN Performed By: #### 2 4344-4 ####[facility] LABORATORYCLIA [id number] [address] Oxygen saturation in Blood 76.5 % Normal 60-85 [facility] Comment on above: Order Comment: Speci men Type: VENOUS BLOOD SPECIMEN Performed By: #### 2 4344-4 ####[facility]ATORYCLIA [id number] [address] Oxyhemoglobin (BldV) [Mass fraction] 75 % Normal 60-85 [facility] Comment on above: Order Comment: Speci men Type: VENOUS BLOOD SPECIMEN Performed By: #### 2 4344-4 ####[facility]ATORYCLIA [id number] [address] pH (BldV) 7.42 [pH] Normal 7.32-7.42 [facility] Comment on above: Order Comment: Speci men Type: VENOUS BLOOD SPECIMEN Performed By: #### 2 4344-4 ####[facility]ATORYCLIA [id number] [address] pH adjusted to patient's actual temperature (BldV) 7.40 Normal 7.32-7.42 [facility] Comment on above: Order Comment: Speci men Type: VENOUS BLOOD SPECIMEN Performed By: #### 2 4344-4 ####[facility]ATORYCLIA [id number] [address] [place] Potassium [Moles/Vol] 3.7 mmol/L Normal 3.5-5.0 [facility] Comment on above: Order Comment: Speci men Type: VENOUS BLOOD SPECIMEN Performed By: #### 2 4344-4 ####[facility]ORYCLIA [id number] [address] Sodium [Moles/Vol] 141 mmol/L Normal 136-144 [facility] Comment on above: Order Comment: Speci men Type: VENOUS BLOOD SPECIMEN Performed By: #### 2 4344-4 ####[facility]ATORYCLIA [id number] [address] [place] Magnesium SerPl-mCncon 06-05 Magnesium [Mass/Vol] 2.3 mg/dL Normal 1.7-2.3 [facility] Comment on above: Order Comment: Speci men Type: BLOOD SPECIMEN Performed By: #### 1 9123-9, 50743-7, 2777-1 ####[facility]ATORYCLIA [id number] [address] Phosphate SerPl-mCncon 06-05 Phosphate [Mass/Vol] 2.9 mg/dL Normal 2.7-4.8 [facility] Comment on above: Order Comment: Speci men Type: BLOOD SPECIMEN Performed By: #### 1 9123-9, 94126-8, 2777-1 ####[facility]ORATORYCLIA [id number] [address] OF [facility] Vancomycin random [Mass/Vol] on 06-05-2021 Vancomycin [...] 091-5 ####[facility]ATORYCLIA [id number] [place] [address] [place] (1,3)-O-B-EVSXVOte 2 (1,3) B-D GLUCAN <31 Normal <60 [facility] Comment on above: Order Comment: Speci men Type: BLOOD SPECIMEN Performed By: #### B DGLUC ####[facility] REFERENCE LABCLIA [id number] [place] LOVEThESIGNEDGetL[place] [address] [place] (1,3) B-D GLUCAN, QUAL Negative Normal NEGAT [facility] Comment on above: Order Comment: Speci men Type: BLOOD SPECIMEN Result Comment: Cert ain fungi, such as the genus Cryptococcus which produces very low levels of (1,3)-muuw-Y-ibzaaj, may not result in serum (1,3)-tqxm-M-qouikv sufficiently elevated so as to be detected by the assay. Infections with fungi of the order Mucorales such as Absidia, Mucor and Rhizopus which are not known to produce (1,3)-htpu-A-hezjot, are also observed to yield low serum (1,3)-qtzu-B-tgsrmq titers.In addition, the yeast phase of Blastomyces dermatitidis produces little (1,3)-anlh-P-dlymsu and may not be detected by the assay. Performed By: #### B DGLUC ####[facility] REFERENCE LABCLIA [id number] ThrupointLID [place] [address] [place] ALLIED HEALTHon 06-04-2021 ALLIED HEALTH Normal [facility] ALLIED HEALTH Normal [facility] ARTERIAL BLOOD GASESon 06-04 Base excess Calc (Bld) [Moles/Vol] 3 mmol/L High 0-2 [facility] Comment on above: Order Comment: Speci men Type: ARTERIAL BLOOD SPECIMEN Performed By: #### A LLBG ####[facility]ORATORYCLIA [id number] [address] [place] Body temperature 98.06 [degF] Normal [facility] Comment on above: Order Comment: Speci men Type: ARTERIAL BLOOD SPECIMEN Performed By: #### A LLBG ####[facility]ATORYCLIA [id number] [address] [place] CALCIUM IONIZED, PH CORRECTED 1.19 mmol/L Normal 1.08-1.30 [facility] Comment on above: Order Comment: Speci men Type: ARTERIAL BLOOD SPECIMEN Performed By: #### A LLBG ####[facility]ATORYCLIA [id number] [address] OF [facility] Calcium.ionized (BldV) [Mass/Vol] 1.14 mmol/L Normal 1.08-1.30 [facility] Comment on above: Order Comment: Speci men Type: ARTERIAL BLOOD SPECIMEN Performed By: #### A LLBG ####[facility]ATORYCLIA [id number] [address] OF [facility] Carboxyhemoglobin (BldA) [Mass fraction] 1.2 % Normal 0.0-2.0 [facility] Comment on above: Order Comment: Speci men Type: ARTERIAL BLOOD SPECIMEN Result Comment: Carb oxyhemoglobin Reference Range for Smokers: 2.0-8.0% Performed By: #### A LLBG ####[facility]ATORYCLIA [id number] [address] CO2 (Bld) [Partial pressure] 35 mm Hg Low 36-46 [facility] Comment on above: Order Comment: Speci men Type: ARTERIAL BLOOD SPECIMEN Performed By: #### A LLBG ####[facility]ATORYCLIA [id number] [address] CO2 [Moles/Vol] 23.2 mmol/L Normal 22-28 [facility] Comment on above: Order Comment: Speci men Type: ARTERIAL BLOOD SPECIMEN Performed By: #### A LLBG ####[facility]ATORYCLIA [id number] [address] CO2 adjusted to patient's actual temperature (Bld) [Partial pressure] 34 mmHg Low 36-46 [facility] Comment on above: Order Comment: Speci men Type: ARTERIAL BLOOD SPECIMEN Performed By: #### A LLBG ####[facility]ORYCLIA [id number] [address] Glucose [Mass/Vol] 115 mg/dL High 60-105 [facility] Comment on above: Order Comment: Speci men Type: ARTERIAL BLOOD SPECIMEN Performed By: #### A LLBG ####[facility]ATORYCLIA [id number] [address] [place] HCO3 (Bld) [Moles/Vol] 26 mmol/L Normal 22-[address] [facility] Comment on above: Order Comment: Speci men Type: ARTERIAL BLOOD SPECIMEN Performed By: #### A LLBG ####[facility]ORYCLIA [id number] [address] [place] Hematocrit (Bld) [Volume fraction] 35.3 % Low 39.0-51.0 [facility] Comment on above: Order Comment: Speci men Type: ARTERIAL BLOOD SPECIMEN Performed By: #### A LLBG ####[facility]ATORYCLIA [id number] [address] [place] Hemoglobin (Bld) [Mass/Vol] 11.5 g/dL Low 13.0-17.0 [facility] Comment on above: Order Comment: Speci men Type: ARTERIAL BLOOD SPECIMEN Performed By: #### A LLBG ####[facility]ATORYCLIA [id number] [address] Methemoglobin (Bld) [Mass fraction] % Normal 0.0-1.5 [facility] Comment on above: Order Comment: Speci men Type: ARTERIAL BLOOD SPECIMEN Performed By: #### A LLBG ####[facility]ATORYCLIA [id number] [address] OF [place] O2 THERAPY Ventilator Normal [facility] Comment on above: Order Comment: Speci men Type: ARTERIAL BLOOD SPECIMEN Performed By: #### A LLBG ####[facility]ATORYCLIA [id number] [address] [place] Oxygen (Bld) [Partial pressure] 66 mm Hg Low 85-95 [facility] Comment on above: Order Comment: Speci men Type: ARTERIAL BLOOD SPECIMEN Performed By: #### A LLBG ####[facility]ORYCLIA [id number] [address] OF [place] Oxygen adjusted to patient's actual temperature (Bld) [Partial pressure] 64.3 mmHg Low 85-95 [facility] Comment on above: Order Comment: Speci men Type: ARTERIAL BLOOD SPECIMEN Performed By: #### A LLBG ####[facility]ATORYCLIA [id number] [address] OXYGEN SATURATION, ARTERIAL 95 % Normal 95-98 [facility] Comment on above: Order Comment: Speci men Type: ARTERIAL BLOOD SPECIMEN Performed By: #### A LLBG ####[facility]ATORYCLIA [id number] [address] Oxyhemoglobin (BldA) [Mass fraction] 93 % Low 95-98 [facility] Comment on above: Order Comment: Speci men Type: ARTERIAL BLOOD SPECIMEN Performed By: #### A LLBG ####[facility]ATORYCLIA [id number] [address] pH (Bld) 7.49 [pH] High 7.35-7.45 [facility] Comment on above: Order Comment: Speci men Type: ARTERIAL BLOOD SPECIMEN Performed By: #### A LLBG ####[facility]ATORYCLIA [id number] [address] pH adjusted to patient's actual temperature (Bld) 7.49 High 7.35-7.45 [facility] Comment on above: Order Comment: Speci men Type: ARTERIAL BLOOD SPECIMEN Performed By: #### A LLBG ####[facility]ATORYCLIA [id number] [address] Potassium [Moles/Vol] 2.8 mmol/L Low 3.5-5.0 [facility] Comment on above: Order Comment: Speci men Type: ARTERIAL BLOOD SPECIMEN Performed By: #### A LLBG ####[facility]ATORYCLIA [id number] [address] Bas Metab 2000 Pnl SerPlon 0 06-04-2021 Sodium [Moles/Vol] 143 mmol/L Normal 136-144 [facility] Comment on above: Order Comment: Speci men Type: BLOOD SPECIMEN Performed By: #### 2 777-1, , ####[facility]ORYCLIA [id number] [address] Order Comment: Speci men Type: ARTERIAL BLOOD SPECIMEN Performed By: #### A LLBG ####[facility]ATORYCLIA [id number] [address] Basic metabolic 2000 panelon 06-04-2021 Anion gap [Moles/Vol] 11 mmol/L Normal 9-18 [facility] Comment on above: Order Comment: Speci men Type: BLOOD SPECIMEN Performed By: #### 2 777-1, , ####[facility]ATORYCLIA [id number] [address] Calcium [Mass/Vol] 8.5 mg/dL Normal 8.5-10.2 [facility] Comment on above: Order Comment: Speci men Type: BLOOD SPECIMEN Performed By: #### 2 777-1, , ####[facility]ATORYCLIA [id number] [address] Chloride [Moles/Vol] 107 mmol/L High 97-105 [facility] Comment on above: Order Comment: Speci men Type: BLOOD SPECIMEN Performed By: #### 2 777-1, , ####[facility]ATORYCLIA [id number] [address] STATES OF [facility] CO2 [Moles/Vol] 25 mmol/L Normal 22-30 [facility] Comment on above: Order Comment: Speci men Type: BLOOD SPECIMEN Performed By: #### 2 777-1, , ####[facility]ATORYCLIA [id number] [address] [place] Creatinine [Mass/Vol] 0.77 mg/dL Normal 0.73-1.22 [facility] Comment on above: Order Comment: Speci men Type: BLOOD SPECIMEN Performed By: #### 2 777-1, 64905-2, ####[facility] LABORATORYCLIA [id number] [place] [address] [place] GFR/1.73 sq M.predicted [...] GFR. Performed By: #### 2 777-1, , ####[facility] [id number] [place] [id number] [place] Glucose [Mass/Vol] 107 mg/dL High 74-99 [facility] Comment on above: Order Comment: [facility] Type: BLOOD SPECIMEN Result Comment: The [place] Diabetes Association (ADA) provides guidance for cutoff [...] Standards of Medical Care in Diabetes 2016, [place] [employer]. Diabetes Care. 2016.39(Suppl 1). Performed By: #### 2 777-1, , ####[facility] LABORATORYCLIA [id number] [address] Potassium [Moles/Vol] 3.1 mmol/L Low 3.7-5.1 [facility] Comment on above: Order Comment: Speci men Type: BLOOD SPECIMEN Performed By: #### 2 777-1, , ####[facility] LABORATORYCLIA [id number] [address] Urea nitrogen [Mass/Vol] 19 mg/dL Normal 9-24 [facility] Comment on above: Order Comment: Speci men Type: BLOOD SPECIMEN Performed By: #### 2 777-1, , ####[facility]ATORYCLIA [id number] [address] CBC panel Auto (Bld)on 06-04 Erythrocyte distribution width (RBC) [Ratio] 15.8 % High 11.5-15.0 [facility] Comment on above: Order Comment: Speci men Type: BLOOD SPECIMEN Performed By: #### 5 8410-2 ####[facility]ORATORYCLIA [id number] [address] Hematocrit (Bld) [Volume fraction] 36.9 % Low 39.0-51.0 [facility] Comment on above: Order Comment: Speci men Type: BLOOD SPECIMEN Performed By: #### 5 8410-2 ####[facility]ATORYCLIA [id number] [address] Hemoglobin (Bld) [Mass/Vol] 11.2 g/dL Low 13.0-17.0 [facility] Comment on above: Order Comment: Speci men Type: BLOOD SPECIMEN Performed By: #### 5 8410-2 ####[facility]ORATORYCLIA [id number] [address] OF [facility] MCH (RBC) [Entitic mass] 27.3 pg Normal 26.0-34.0 [facility] Comment on above: Order Comment: Speci men Type: BLOOD SPECIMEN Performed By: #### 5 8410-2 ####[facility]ATORYCLIA [id number] [address] MCHC (RBC) [Mass/Vol] 30.4 g/dL Low 30.5-36.0 [facility] Comment on above: Order Comment: Speci men Type: BLOOD SPECIMEN Performed By: #### 5 8410-2 ####[facility]ATORYCLIA [id number] [address] MCV (RBC) [Entitic vol] 89.8 fL Normal 80.0-100.0 [facility] Comment on above: Order Comment: Speci men Type: BLOOD SPECIMEN Performed By: #### 5 8410-2 ####[facility]ORATORYCLIA [id number] [address] Nucleated RBC (Bld) [#/Vol] 10*3/uL Normal <0.01 [facility] Comment on above: Order Comment: Speci men Type: BLOOD SPECIMEN Performed By: #### 5 8410-2 ####[facility]ATORYCLIA [id number] [address] Platelet mean volume (Bld) [Entitic vol] 10.7 fL Normal 9.0-12.7 [facility] Comment on above: Order Comment: Speci men Type: BLOOD SPECIMEN Performed By: #### 5 8410-2 ####[facility]ATORYCLIA [id number] [address] Platelets (Bld) [#/Vol] 174 10*3/uL Normal 150-400 [facility] Comment on above: Order Comment: Speci men Type: BLOOD SPECIMEN Performed By: #### 5 8410-2 ####[facility]ATORYCLIA [id number] [address] RBC (Bld) [#/Vol] 4.11 10*6/uL Low 4.20-6.00 [facility] Comment on above: Order Comment: Speci men Type: BLOOD SPECIMEN Performed By: #### 5 8410-2 ####[facility]ORATORYCLIA [id number] [address] OF [facility] WBC (Bld) [#/Vol] 8.29 10*3/uL Normal 3.70-11.00 [facility] Comment on above: Order Comment: Speci men Type: BLOOD SPECIMEN Performed By: #### 5 8410-2 ####[facility]ATORYCLIA [id number] [address] CONSULT PROGon 06-04-2021 CONSULT PROG Normal [...] BLOOD SPECIMEN Performed By: #### 2 777-1, 49630-8, 72195-2 ####[facility]ORATORYCLIA [id number] [address] NT-proBNP SerPl-mCncon 06-04 Natriuretic peptide.B prohormone N-Terminal [Mass/Vol] 229 pg/mL High <125 [facility] Comment on above: Order Comment: Speci men Type: BLOOD SPECIMEN Performed By: #### 3 3762-6, 4091-5 ####[facility]ATORYCLIA [id number] [address] Phosphate SerPl-mCncon 06-04 Phosphate [Mass/Vol] 2.0 mg/dL Low 2.7-4.8 [facility] Comment on above: Order Comment: Speci men Type: BLOOD SPECIMEN Performed By: #### 2 777-1, 45878-2, 26732-6 ####[facility]ATORYCLIA [id number] [address] Vancomycin random [Mass/Vol] on 06-04-2021 Vancomycin [...] 4091-5 ####[facility]ATORYCLIA [id number] [address] XR ABDOMEN 1V SUPINEon 06-04 XR ABDOMEN 1V SUPINE Normal [facility] ALLIED HEALTHon 06-03-2021 ALLIED HEALTH Normal [facility] ARTERIAL BLOOD GASESon 06-03 Base excess Calc (Bld) [Moles/Vol] 5 mmol/L High 0-2 [facility] Comment on above: Order Comment: Speci men Type: ARTERIAL BLOOD SPECIMEN Performed By: #### A LLBG ####[facility]ORATORYCLIA [id number] [address] Body temperature 99.5 [degF] Normal [facility] Comment on above: Order Comment: Speci men Type: ARTERIAL BLOOD SPECIMEN Performed By: #### A LLBG ####[facility]ATORYCLIA [id number] [address] CALCIUM IONIZED, PH CORRECTED 1.18 mmol/L Normal 1.08-1.30 [facility] Comment on above: Order Comment: Speci men Type: ARTERIAL BLOOD SPECIMEN Performed By: #### A LLBG ####[facility]ATORYCLIA [id number] [address] Calcium.ionized (BldV) [Mass/Vol] 1.16 mmol/L Normal 1.08-1.30 [facility] Comment on above: Order Comment: Speci men Type: ARTERIAL BLOOD SPECIMEN Performed By: #### A LLBG ####[facility]ATORYCLIA [id number] [address] Carboxyhemoglobin (BldA) [Mass fraction] 1.2 % Normal 0.0-2.0 [facility] Comment on above: Order Comment: Speci men Type: ARTERIAL BLOOD SPECIMEN Result Comment: Carb oxyhemoglobin Reference Range for Smokers: 2.0-8.0% Performed By: #### A LLBG ####[facility]ATORYCLIA [id number] [address] CO2 (Bld) [Partial pressure] 45 mm Hg Normal 36-46 [facility] Comment on above: Order Comment: Speci men Type: ARTERIAL BLOOD SPECIMEN Performed By: #### A LLBG ####[facility]ATORYCLIA [id number] [address] CO2 [Moles/Vol] 26.9 mmol/L Normal 22-28 [facility] Comment on above: Order Comment: Speci men Type: ARTERIAL BLOOD SPECIMEN Performed By: #### A LLBG ####[facility]ATORYCLIA [id number] [address] CO2 adjusted to patient's actual temperature (Bld) [Partial pressure] 47 mmHg High 36-46 [facility] Comment on above: Order Comment: Speci men Type: ARTERIAL BLOOD SPECIMEN Performed By: #### A LLBG ####[facility]ATORYCLIA [id number] [address] OF [place] Glucose [Mass/Vol] 141 mg/dL High 60-105 [facility] Comment on above: Order Comment: Speci men Type: ARTERIAL BLOOD SPECIMEN Performed By: #### A LLBG ####[facility]ATORYCLIA [id number] [address] HCO3 (Bld) [Moles/Vol] 30 mmol/L High 22-[address] [facility] Comment on above: Order Comment: Speci men Type: ARTERIAL BLOOD SPECIMEN Performed By: #### A LLBG ####[facility]ATORYCLIA [id number] [address] Hematocrit (Bld) [Volume fraction] 35.8 % Low 39.0-51.0 [facility] Comment on above: Order Comment: Speci men Type: ARTERIAL BLOOD SPECIMEN Performed By: #### A LLBG ####[facility]ATORYCLIA [id number] [address] Hemoglobin (Bld) [Mass/Vol] 11.6 g/dL Low 13.0-17.0 [facility] Comment on above: Order Comment: Speci men Type: ARTERIAL BLOOD SPECIMEN Performed By: #### A LLBG ####[facility]ATORYCLIA [id number] [address] Methemoglobin (Bld) [Mass fraction] % Normal 0.0-1.5 [facility] Comment on above: Order Comment: Speci men Type: ARTERIAL BLOOD SPECIMEN Performed By: #### A LLBG ####[facility]ATORYCLIA [id number] [address] O2 THERAPY Ventilator Normal [facility] Comment on above: Order Comment: Speci men Type: ARTERIAL BLOOD SPECIMEN Performed By: #### A LLBG ####[facility]ORATORYCLIA [id number] [address] Oxygen (Bld) [Partial pressure] 69 mm Hg Low 85-95 [facility] Comment on above: Order Comment: Speci men Type: ARTERIAL BLOOD SPECIMEN Performed By: #### A LLBG ####[facility]ATORYCLIA [id number] [address] Oxygen adjusted to patient's actual temperature (Bld) [Partial pressure] 70.8 mmHg Low 85-95 [facility] Comment on above: Order Comment: Speci men Type: ARTERIAL BLOOD SPECIMEN Performed By: #### A LLBG ####[facility]ATORYCLIA [id number] [address] OXYGEN SATURATION, ARTERIAL 94 % Low 95-98 [facility] Comment on above: Order Comment: Speci men Type: ARTERIAL BLOOD SPECIMEN Performed By: #### A LLBG ####[facility]ATORYCLIA [id number] [address] Oxyhemoglobin (BldA) [Mass fraction] 93 % Low 95-98 [facility] Comment on above: Order Comment: Speci men Type: ARTERIAL BLOOD SPECIMEN Performed By: #### A LLBG ####[facility]ORATORYCLIA [id number] [address] STATES [place] pH (Bld) 7.43 [pH] Normal 7.35-7.45 [facility] Comment on above: Order Comment: Speci men Type: ARTERIAL BLOOD SPECIMEN Performed By: #### A LLBG ####[facility]ATORYCLIA [id number] [address] pH adjusted to patient's actual temperature (Bld) 7.43 Normal 7.35-7.45 [facility] Comment on above: Order Comment: Speci men Type: ARTERIAL BLOOD SPECIMEN Performed By: #### A LLBG ####[facility]ORATORYCLIA [id number] [address] STATES OF [facility] Potassium [Moles/Vol] 3.1 mmol/L Low 3.5-5.0 [facility] Comment on above: Order Comment: Speci men Type: ARTERIAL BLOOD SPECIMEN Performed By: #### A LLBG ####[facility]ATORYCLIA [id number] [address] [place] Sodium [Moles/Vol] 145 mmol/L High 136-144 [facility] Comment on above: Order Comment: Speci men Type: ARTERIAL BLOOD SPECIMEN Performed By: #### A LLBG ####[facility]ORATORYCLIA [id number] [address] [place] ASPERGILLUS GALACTOMANNAN SE RUMon 06-03-2021 Galactomannan Ag IA Ql Negative Normal NEGAT [facility] Comment on above: Order Comment: Speci [...] is suspected. Performed By: #### A SGALS ####[facility]FER[facility] LABCLIA [id number] [place] [address] OF [facility] Galactomannan Ag IA Qn <0.50 Normal [facility] Comment on above: Order Comment: Speci men Type: BLOOD SPECIMEN Result Comment: Inde x Values are Interpreted as Follows:Negative specimens <0.50Positive specimens >=0.50 Performed By: #### A SGALS ####[facility] REFER[facility] LABCLIA [id number] [place] [id number] [facility] Basic metabolic 2000 panelon 06-03-2021 Anion gap [Moles/Vol] 8 mmol/L Low 9-18 [facility] Comment on above: Order Comment: Speci men Type: BLOOD SPECIMEN Performed By: #### 1 9123-9, 2777-1, 48302-0 ####[facility]ORATORYCLIA [id number] [address] STATES OF [facility] Calcium [Mass/Vol] 8.0 mg/dL Low 8.5-10.2 [facility] Comment on above: Order Comment: Speci men Type: BLOOD SPECIMEN Performed By: #### 1 9123-9, 2777-1, 41164-5 ####[facility]ORATORYCLIA [id number] [address] STATES OF [facility] Chloride [Moles/Vol] 110 mmol/L High 97-105 [facility] Comment on above: Order Comment: Speci men Type: BLOOD SPECIMEN Performed By: #### 1 9123-9, 2777-1, 24660-1 ####[facility]ATORYCLIA [id number] [address] CO2 [Moles/Vol] 28 mmol/L Normal 22-30 [facility] Comment on above: Order Comment: Speci men Type: BLOOD SPECIMEN Performed By: #### 1 9123-9, 2777-1, 76370-4 ####[facility]ATORYCLIA [id number] [address] STATES OF [facility] Creatinine [Mass/Vol] 0.75 mg/dL Normal 0.73-1.22 [facility] Comment on above: Order Comment: Speci men Type: BLOOD SPECIMEN Performed By: #### 1 9123-9, 2777-, 46206-8 ####[facility]ORATORYCLIA [id number] [address] STATES [facility] GFR/1.73 sq M.predicted MDRD (S/P/Bld) [...] GFR. Performed By: #### 1 9123-9, 2777-1, 48942-3 ####[facility]ATORYCLIA [id number] [address] [place] Glucose [Mass/Vol] 141 mg/dL High 74-99 [facility] Comment on above: Order Comment: Speci men Type: BLOOD SPECIMEN Result Comment: The [place] Diabetes Association (ADA) provides guidance for cutoff [...] Standards of Medical Care in Diabetes 2016, [place] Diabetes Association. Diabetes Care. 2016.39(Suppl 1). Performed By: #### 1 9123-9, 2777-, 27513-2 ####[facility]ATORYCLIA [id number] [address] STATES OF [facility] Potassium [Moles/Vol] 3.3 mmol/L Low 3.7-5.1 [facility] Comment on above: Order Comment: Speci men Type: BLOOD SPECIMEN Performed By: #### 1 9123-9, 2777, 58060-3 ####[facility]ATORYCLIA [id number] [address] Sodium [Moles/Vol] 146 mmol/L High 136-144 [facility] Comment on above: Order Comment: Speci men Type: BLOOD SPECIMEN Performed By: #### 1 9123-9, 2777, 95184-1 ####[facility]ATORYCLIA [id number] [address] Urea nitrogen [Mass/Vol] 10 mg/dL Normal 9-24 [facility] Comment on above: Order Comment: Speci men Type: BLOOD SPECIMEN Performed By: #### 1 9123-9, 2777-, 69873-3 ####[facility]ATORYCLIA [id number] [address] OF [facility] CASE MANAGEMon 06-03-2021 CASE MANAGEM Normal [facility] CBC panel Auto (Bld)on 06-03 Erythrocyte distribution width (RBC) [Ratio] 15.6 % High 11.5-15.0 [facility] Comment on above: Order Comment: Speci men Type: BLOOD SPECIMEN Performed By: #### 5 8410-2 ####[facility]ATORYCLIA [id number] [address] Hematocrit (Bld) [Volume fraction] 36.9 % Low 39.0-51.0 [facility] Comment on above: Order Comment: Speci men Type: BLOOD SPECIMEN Performed By: #### 5 8410-2 ####[facility]ATORYCLIA [id number] [address] Hemoglobin (Bld) [Mass/Vol] 11.1 g/dL Low 13.0-17.0 [facility] Comment on above: Order Comment: Speci men Type: BLOOD SPECIMEN Performed By: #### 5 8410-2 ####[facility]ATORYCLIA [id number] [address] MCH (RBC) [Entitic mass] 27.0 pg Normal 26.0-34.0 [facility] Comment on above: Order Comment: Speci men Type: BLOOD SPECIMEN Performed By: #### 5 8410-2 ####[facility]ATORYCLIA [id number] [address] MCHC (RBC) [Mass/Vol] 30.1 g/dL Low 30.5-36.0 [facility] Comment on above: Order Comment: Speci men Type: BLOOD SPECIMEN Performed By: #### 5 8410-2 ####[facility]ATORYCLIA [id number] [address] MCV (RBC) [Entitic vol] 89.8 fL Normal 80.0-100.0 [facility] Comment on above: Order Comment: Speci men Type: BLOOD SPECIMEN Performed By: #### 5 8410-2 ####[facility]ATORYCLIA [id number] [address] Nucleated RBC (Bld) [#/Vol] 10*3/uL Normal <0.01 [facility] Comment on above: Order Comment: Speci men Type: BLOOD SPECIMEN Performed By: #### 5 8410-2 ####[facility]ATORYCLIA [id number] [address] Platelet mean volume (Bld) [Entitic vol] 10.5 fL Normal 9.0-12.7 [facility] Comment on above: Order Comment: Speci men Type: BLOOD SPECIMEN Performed By: #### 5 8410-2 ####[facility]ATORYCLIA [id number] [address] [place] Platelets (Bld) [#/Vol] 196 10*3/uL Normal 150-400 [facility] Comment on above: Order Comment: Speci men Type: BLOOD SPECIMEN Performed By: #### 5 8410-2 ####[facility]ATORYCLIA [id number] [address] RBC (Bld) [#/Vol] 4.11 10*6/uL Low 4.20-6.00 [facility] Comment on above: Order Comment: Speci men Type: BLOOD SPECIMEN Performed By: #### 5 8410-2 ####[facility]ATORYCLIA [id number] [address] WBC (Bld) [#/Vol] 8.18 10*3/uL Normal 3.70-11.00 [facility] Comment on above: Order Comment: Speci men Type: BLOOD SPECIMEN Performed By: #### 5 8410-2 ####[facility]ATORYCLIA [id number] [address] OF [facility] CONSULTon 06-03-2021 CONSULT Normal [facility] CONSULT PROGon 06-03-2021 CONSULT PROG Normal [facility] Gas and Carbon monoxide pane l (BldV)on 06-03-2021 Base excess Calc (BldV) [Moles/Vol] 1.4 mmol/L Normal 0-2 [facility] Comment on above: Order Comment: Speci men Type: VENOUS BLOOD SPECIMEN Performed By: #### 2 4344-4 ####[facility]ATORYCLIA [id number] [place] [address] Body temperature 98.42 [degF] Normal [facility] Comment on above: Order Comment: Speci men Type: VENOUS BLOOD SPECIMEN Performed By: #### 2 4344-4 ####[facility]ATORYCLIA [id number] [address] CALCIUM IONIZED, PH CORRECTED 1.09 mmol/L Normal 1.08-1.30 [facility] Comment on above: Order Comment: Speci men Type: VENOUS BLOOD SPECIMEN Performed By: #### 2 4344-4 ####[facility]ATORYCLIA [id number] [address] Calcium.ionized (BldV) [Mass/Vol] 1.12 mmol/L Normal 1.08-1.30 [facility] Comment on above: Order Comment: Speci men Type: VENOUS BLOOD SPECIMEN Performed By: #### 2 4344-4 ####[facility]ATORYCLIA [id number] [address] Carboxyhemoglobin (BldV) [Mass fraction] 1.7 % Normal 0.0-2.0 [facility] Comment on above: Order Comment: Speci men Type: VENOUS BLOOD SPECIMEN Result Comment: Carb oxyhemoglobin Reference Range for Smokers: 2.0-8.0% Performed By: #### 2 4344-4 ####[facility]ATORYCLIA [id number] [address] CO2 (BldV) [Partial pressure] 50 mm[Hg] Normal 42-55 [facility] Comment on above: Order Comment: Speci men Type: VENOUS BLOOD SPECIMEN Performed By: #### 2 4344-4 ####[facility]ATORYCLIA [id number] [address] CO2 [Moles/Vol] 24.9 mmol/L Low 25-29 [facility] Comment on above: Order Comment: Speci men Type: VENOUS BLOOD SPECIMEN Performed By: #### 2 4344-4 ####[facility]ATORYCLIA [id number] [address] CO2 adjusted to patient's actual temperature (BldV) [Partial pressure] 50 mmHg Normal 42-55 [facility] Comment on above: Order Comment: Speci men Type: VENOUS BLOOD SPECIMEN Performed By: #### 2 4344-4 ####[facility]ATORYCLIA [id number] [place], [place] [address] [place] [address] [place] FIO2 30 % Normal [facility] Comment on above: Order Comment: Speci men Type: VENOUS BLOOD SPECIMEN Performed By: #### 2 4344-4 ####[facility]ATORYCLIA [id number] [address] Glucose [Mass/Vol] 191 mg/dL High 60-105 [facility] Comment on above: Order Comment: Speci men Type: VENOUS BLOOD SPECIMEN Performed By: #### 2 4344-4 ####[facility]ORYCLIA [id number] [address] HCO3 (Bld) [Moles/Vol] 27.1 mmol/L Normal 24-28 [facility] Comment on above: Order Comment: Speci men Type: VENOUS BLOOD SPECIMEN Performed By: #### 2 4344-4 ####[facility]ORYCLIA [id number] [address] Hematocrit (Bld) [Volume fraction] 36.2 % Low 39.0-51.0 [facility] Comment on above: Order Comment: Speci men Type: VENOUS BLOOD SPECIMEN Performed By: #### 2 4344-4 ####[facility]ORYCLIA [id number] [address] Hemoglobin (Bld) [Mass/Vol] 11.8 g/dL Low 13.0-17.0 [facility] Comment on above: Order Comment: Speci men Type: VENOUS BLOOD SPECIMEN Performed By: #### 2 4344-4 ####[facility]ATORYCLIA [id number] [address] INHALED TIDAL VOLUME (ML) 530 Normal [facility] Comment on above: Order Comment: Speci men Type: VENOUS BLOOD SPECIMEN Performed By: #### 2 4344-4 ####[facility]ATORYCLIA [id number] [place] [address] [facility] [place] Methemoglobin (Bld) [Mass fraction] % Normal 0.0-1.5 [facility] Comment on above: Order Comment: Speci men Type: VENOUS BLOOD SPECIMEN Performed By: #### 2 4344-4 ####[facility]ATORYCLIA [id number] [place] [address] [facility] [place] O2 THERAPY Ventilator Normal [facility] Comment on above: Order Comment: Speci men Type: VENOUS BLOOD SPECIMEN Performed By: #### 2 4344-4 ####[facility]ATORYCLIA [id number] [place], [place] [address] [place] [address] [place] Oxygen (BldV) [Partial pressure] 69 mm[Hg] High 35-45 [facility] Comment on above: Order Comment: Speci men Type: VENOUS BLOOD SPECIMEN Performed By: #### 2 4344-4 ####[facility]ATORYCLIA [id number] [place], [place] [id number] [place] [address] [place] Oxygen adjusted to patient's actual temperature (BldV) [Partial pressure] 68.8 mmHg High 35-45 [facility] Comment on above: Order Comment: Speci men Type: VENOUS BLOOD SPECIMEN Performed By: #### 2 4344-4 ####[facility]ATORYCLIA [id number] [place], [place] [address] [place] [address] [place] Oxygen saturation in Blood 92.4 % High 60-85 [facility] Comment on above: Order Comment: Speci men Type: VENOUS BLOOD SPECIMEN Performed By: #### 2 4344-4 ####[facility]ATORYCLIA [id number] [place], [place] [address] [place] [address] [place] Oxyhemoglobin (BldV) [Mass fraction] 90 % High 60-85 [facility] Comment on above: Order Comment: Speci men Type: VENOUS BLOOD SPECIMEN Performed By: #### 2 4344-4 ####[facility]ORYCLIA [id number] [address] PEEP/CPAP 8 cmH2O Normal [facility] Comment on above: Order Comment: Speci men Type: VENOUS BLOOD SPECIMEN Performed By: #### 2 4344-4 ####[facility]ATORYCLIA [id number] [address] pH (BldV) 7.35 [pH] Normal 7.32-7.42 [facility] Comment on above: Order Comment: Speci men Type: VENOUS BLOOD SPECIMEN Performed By: #### 2 4344-4 ####[facility]ORYCLIA [id number] [address] pH adjusted to patient's actual temperature (BldV) 7.35 Normal 7.32-7.42 [facility] Comment on above: Order Comment: Speci men Type: VENOUS BLOOD SPECIMEN Performed By: #### 2 4344-4 ####[facility]ATORYCLIA [id number] [address] Potassium [Moles/Vol] 3.6 mmol/L Normal 3.5-5.0 [facility] Comment on above: Order Comment: Speci men Type: VENOUS BLOOD SPECIMEN Performed By: #### 2 4344-4 ####[facility]ATORYCLIA [id number] [address] SET VENTILATOR RESPIRATORY RATE (BPM) 18 BPM Normal [facility] Comment on above: Order Comment: Speci men Type: VENOUS BLOOD SPECIMEN Performed By: #### 2 4344-4 ####[facility]ATORYCLIA [id number] [address] Sodium [Moles/Vol] 141 mmol/L Normal 136-144 [facility] Comment on above: Order Comment: Speci men Type: VENOUS BLOOD SPECIMEN Performed By: #### 2 4344-4 ####[facility]ORY[facility] [id number] [address] HIV 1+2 Ab [place] Qlon 01-28-202 2 HIV 1 and 2 Ab [place].rapid Nom Normal [facility] Comment on above: Order Comment: Speci men Type: BLOOD SPECIMEN Result Comment: Test not indicated. Performed By: #### 3 1201-7, TOXMG ####[facility] LABORATORYCLIA [id number] [place] [address] [place] HIV 1+2 Ab+HIV1 [...] TOXMG ####[facility] LABORATORYCLIA [id number] [address] HIVINT Normal [facility] Comment on above: Order Comment: Speci men Type: BLOOD SPECIMEN Result Comment: No e vidence of HIV-1 or HIV-2 infection. Should recent infection be suspected, repeat testing may be considered 2-3 weeks after this draw. Performed By: #### 3 1201-7, TOXMG ####[facility]ORYCLIA [id number] [address] [place] Magnesium SerPl-mCncon 06-03 Magnesium [Mass/Vol] 1.9 mg/dL Normal 1.7-2.3 [facility] Comment on above: Order Comment: Speci men Type: BLOOD SPECIMEN Performed By: #### 1 9123-9, 2777-1, 24101-5 ####[facility]ATORYCLIA [id number] [place] [address] [place] NUTRITIONon 06-03-2021 NUTRITION Normal [facility] Phosphate SerPl-mCncon 06-03 Phosphate [Mass/Vol] 1.9 mg/dL Low 2.7-4.8 [facility] Comment on above: Order Comment: Speci men Type: BLOOD SPECIMEN Performed By: #### 1 9123-9, 2777-1, 33624-7 ####[facility]ATORYCLIA [id number] [address] TOXOPLASMOSIS IGM AND IGG AB on [...] TOXMG ####[facility]ORYCLIA [id number] [address] TOXO IGM QUAL Negative Normal Negative [facility] Comment on above: Order Comment: Speci men Type: BLOOD SPECIMEN Result Comment: No s erological evidence of recent exposure to Toxoplasma gondii.Negative <0.9 IndexEquivocal 0.9-0.99 IndexPositive >=1.0 Index Performed By: #### 3 1201-7, TOXMG ####[facility]ORYCLIA [id number] [address] [place] US DVT LOWER [...] LLBG ####[facility]ORYCLIA [id number] [address] Body temperature 99.32 [degF] Normal [facility] Comment on above: Order Comment: Speci men Type: ARTERIAL BLOOD SPECIMEN Performed By: #### A LLBG ####[facility]ORYCLIA [id number] [address] CALCIUM IONIZED, PH CORRECTED 1.15 mmol/L Normal 1.08-1.30 [facility] Comment on above: Order Comment: Speci men Type: ARTERIAL BLOOD SPECIMEN Performed By: #### A LLBG ####[facility]ORYCLIA [id number] [address] Calcium.ionized (BldV) [Mass/Vol] 1.13 mmol/L Normal 1.08-1.30 [facility] Comment on above: Order Comment: Speci men Type: ARTERIAL BLOOD SPECIMEN Performed By: #### A LLBG ####[facility]ATORYCLIA [id number] [address] Carboxyhemoglobin (BldA) [Mass fraction] 1.4 % Normal 0.0-2.0 [facility] Comment on above: Order Comment: Speci men Type: ARTERIAL BLOOD SPECIMEN Result Comment: Carb oxyhemoglobin Reference Range for Smokers: 2.0-8.0% Performed By: #### A LLBG ####[facility]ORYCLIA [id number] [address] CO2 (Bld) [Partial pressure] 39 mm Hg Normal 36-46 [facility] Comment on above: Order Comment: Speci men Type: ARTERIAL BLOOD SPECIMEN Performed By: #### A LLBG ####[facility]ORYCLIA [id number] [address] [place] CO2 [Moles/Vol] 23.4 mmol/L Normal 22-28 [facility] Comment on above: Order Comment: Speci men Type: ARTERIAL BLOOD SPECIMEN Performed By: #### A LLBG ####[facility]ORYCLIA [id number] [address] CO2 adjusted to patient's actual temperature (Bld) [Partial pressure] 40 mmHg Normal 36-46 [facility] Comment on above: Order Comment: Speci men Type: ARTERIAL BLOOD SPECIMEN Performed By: #### A LLBG ####[facility]ORYCLIA [id number] [address] Glucose [Mass/Vol] 156 mg/dL High 60-105 [facility] Comment on above: Order Comment: Speci men Type: ARTERIAL BLOOD SPECIMEN Performed By: #### A LLBG ####[facility]ORYCLIA [id number] [address] HCO3 (Bld) [Moles/Vol] 26 mmol/L Normal 22-[address] [facility] Comment on above: Order Comment: Speci men Type: ARTERIAL BLOOD SPECIMEN Performed By: #### A LLBG ####[facility]ORYCLIA [id number] [address] Hematocrit (Bld) [Volume fraction] 33.9 % Low 39.0-51.0 [facility] Comment on above: Order Comment: Speci men Type: ARTERIAL BLOOD SPECIMEN Performed By: #### A LLBG ####[facility]ORYCLIA [id number] [address] OF [facility] Hemoglobin (Bld) [Mass/Vol] 11.0 g/dL Low 13.0-17.0 [facility] Comment on above: Order Comment: Speci men Type: ARTERIAL BLOOD SPECIMEN Performed By: #### A LLBG ####[facility]ORYCLIA [id number] [address] Methemoglobin (Bld) [Mass fraction] % Normal 0.0-1.5 [facility] Comment on above: Order Comment: Speci men Type: ARTERIAL BLOOD SPECIMEN Performed By: #### A LLBG ####[facility]ORYCLIA [id number] [address] O2 THERAPY Ventilator Normal [facility] Comment on above: Order Comment: Speci men Type: ARTERIAL BLOOD SPECIMEN Performed By: #### A LLBG ####[facility]ORYCLIA [id number] [place], [place] [address] [place] [address] Oxygen (Bld) [Partial pressure] 70 mm Hg Low 85-95 [facility] Comment on above: Order Comment: Speci men Type: ARTERIAL BLOOD SPECIMEN Performed By: #### A LLBG ####[facility]ORYCLIA [id number] [address] Oxygen adjusted to patient's actual temperature (Bld) [Partial pressure] 72.2 mmHg Low 85-95 [facility] Comment on above: Order Comment: Speci men Type: ARTERIAL BLOOD SPECIMEN Performed By: #### A LLBG ####[facility]ATORYCLIA [id number] [address] OXYGEN SATURATION, ARTERIAL 96 % Normal 95-98 [facility] Comment on above: Order Comment: Speci men Type: ARTERIAL BLOOD SPECIMEN Performed By: #### A LLBG ####[facility]ATORYCLIA [id number] [address] Oxyhemoglobin (BldA) [Mass fraction] 94 % Low 95-98 [facility] Comment on above: Order Comment: Speci men Type: ARTERIAL BLOOD SPECIMEN Performed By: #### A LLBG ####[facility]ORYCLIA [id number] [address] [place] pH (Bld) 7.43 [pH] Normal 7.35-7.45 [facility] Comment on above: Order Comment: Speci men Type: ARTERIAL BLOOD SPECIMEN Performed By: #### A LLBG ####[facility]ORYCLIA [id number] [address] pH adjusted to patient's actual temperature (Bld) 7.42 Normal 7.35-7.45 [facility] Comment on above: Order Comment: Speci men Type: ARTERIAL BLOOD SPECIMEN Performed By: #### A LLBG ####[facility]ORYCLIA [id number] [address] [place] Potassium [Moles/Vol] 2.6 mmol/L Low 3.5-5.0 [facility] Comment on above: Order Comment: Speci men Type: ARTERIAL BLOOD SPECIMEN Performed By: #### A LLBG ####[facility]ATORYCLIA [id number] [address] STATES OF [facility] Sodium [Moles/Vol] 142 mmol/L Normal 136-144 [facility] Comment on above: Order Comment: Speci men Type: ARTERIAL BLOOD SPECIMEN Performed By: #### A LLBG ####[facility]ORYCLIA [id number] [address] [place] Ammonia Plas-sCncon 06-02-19 22 Ammonia (P) [Moles/Vol] 20 umol/L Normal 16-60 [facility] Comment on above: Order Comment: Speci men Type: BLOOD SPECIMEN Performed By: #### 1 6362-6 ####[facility]ATORYCLIA [id number] [address] [place] Bacteria CSF Culton 06-02-19 22 Bacteria identified Cx Nom (CSF) CULTURE, CSF: No growth 14 days GRAM STAIN: No organisms seen Rare Polymorphonuclear leukocytes Gram stain performed on cytospun specimen. Normal [facility] Comment on above: Performed By: #### 6 06-4 ####[facility]ATORYCLIA [id number] [address] [place] Basic metabolic 2000 panelon 06-02-2021 Anion gap [Moles/Vol] 10 mmol/L Normal 9-18 [facility] Comment on above: Order Comment: Speci men Type: BLOOD SPECIMEN Performed By: #### 2 4321-2, , 2776-05 ####[facility]ATORYCLIA [id number] [address] STATES OF [facility] Calcium [Mass/Vol] 8.1 mg/dL Low 8.5-10.2 [facility] Comment on above: Order Comment: Speci men Type: BLOOD SPECIMEN Performed By: #### 2 4321-2, , 2776 ####[facility]ATORYCLIA [id number] [place], [place] [address] [place] [address] [place] Chloride [Moles/Vol] 108 mmol/L High 97-105 [facility] Comment on above: Order Comment: Speci men Type: BLOOD SPECIMEN Performed By: #### 2 4321-2, , 2776-05 ####[facility]ATORYCLIA [id number] [address] [place] CO2 [Moles/Vol] 24 mmol/L Normal 22-30 [facility] Comment on above: Order Comment: Speci men Type: BLOOD SPECIMEN Performed By: #### 2 1-2, , 2776-05 ####[facility]ATORYCLIA [id number] [address] [place] Creatinine [Mass/Vol] 0.78 mg/dL Normal 0.73-1.22 [facility] Comment on above: Order Comment: Speci men Type: BLOOD SPECIMEN Performed By: #### 2 1-2, , 2776-05 ####[facility]ATORYCLIA [id number] [address] [place] GFR/1.73 sq M.predicted [...] 2776-05 ####[facility]ATORYCLIA [id number] [place] [address] [place] Glucose [Mass/Vol] 162 mg/dL High 74-99 [facility] Comment on above: Order Comment: Speci men Type: BLOOD SPECIMEN Result Comment: The [place] Diabetes Association (ADA) provides guidance for cutoff [...] Standards of Medical Care in Diabetes 2016, [place] Diabetes Association. Diabetes Care. 2016.39(Suppl 1). Performed By: #### 2 1-2, , 2776-05 ####[facility]ATORYCLIA [id number] [address] [place] Potassium [Moles/Vol] 2.7 mmol/L Low 3.7-5.1 [facility] Comment on above: Order Comment: Speci men Type: BLOOD SPECIMEN Performed By: #### 2 1-2, , 2776-05 ####[facility]ATORYCLIA [id number] [address] [place] Sodium [Moles/Vol] 142 mmol/L Normal 136-144 [facility] Comment on above: Order Comment: Speci men Type: BLOOD SPECIMEN Performed By: #### 2 4321-2, , 2776-05 ####[facility]ATORYCLIA [id number] [address] [place] Urea nitrogen [Mass/Vol] 12 mg/dL Normal 9-24 [facility] Comment on above: Order Comment: Speci men Type: BLOOD SPECIMEN Performed By: #### 2 1-2, , 2776-05 ####[facility]ATORYCLIA [id number] [address] CBC panel Auto (Bld)on 06-02 Erythrocyte distribution width (RBC) [Ratio] 15.0 % Normal 11.5-15.0 [facility] Comment on above: Order Comment: Speci men Type: BLOOD SPECIMEN Performed By: #### 5 8410-2 ####[facility]ATORYCLIA [id number] [address] Hematocrit (Bld) [Volume fraction] 34.3 % Low 39.0-51.0 [facility] Comment on above: Order Comment: Speci men Type: BLOOD SPECIMEN Performed By: #### 5 8410-2 ####[facility]ATORYCLIA [id number] [address] Hemoglobin (Bld) [Mass/Vol] 10.3 g/dL Low 13.0-17.0 [facility] Comment on above: Order Comment: Speci men Type: BLOOD SPECIMEN Performed By: #### 5 8410-2 ####[facility]ATORYCLIA [id number] [address] MCH (RBC) [Entitic mass] 27.0 pg Normal 26.0-34.0 [facility] Comment on above: Order Comment: Speci men Type: BLOOD SPECIMEN Performed By: #### 5 8410-2 ####[facility]ATORYCLIA [id number] [address] MCHC (RBC) [Mass/Vol] 30.0 g/dL Low 30.5-36.0 [facility] Comment on above: Order Comment: Speci men Type: BLOOD SPECIMEN Performed By: #### 5 8410-2 ####[facility]ATORYCLIA [id number] [address] MCV (RBC) [Entitic vol] 90.0 fL Normal 80.0-100.0 [facility] Comment on above: Order Comment: Speci men Type: BLOOD SPECIMEN Performed By: #### 5 8410-2 ####[facility]ATORYCLIA [id number] [address] Nucleated RBC (Bld) [#/Vol] 10*3/uL Normal <0.01 [facility] Comment on above: Order Comment: Speci men Type: BLOOD SPECIMEN Performed By: #### 5 8410-2 ####[facility]ATORYCLIA [id number] [address] Platelet mean volume (Bld) [Entitic vol] 10.2 fL Normal 9.0-12.7 [facility] Comment on above: Order Comment: Speci men Type: BLOOD SPECIMEN Performed By: #### 5 8410-2 ####[facility]ATORYCLIA [id number] [address] Platelets (Bld) [#/Vol] 194 10*3/uL Normal 150-400 [facility] Comment on above: Order Comment: Speci men Type: BLOOD SPECIMEN Performed By: #### 5 8410-2 ####[facility]ORYCLIA [id number] [address] RBC (Bld) [#/Vol] 3.81 10*6/uL Low 4.20-6.00 [facility] Comment on above: Order Comment: Speci men Type: BLOOD SPECIMEN Performed By: #### 5 8410-2 ####[facility]ORYCLIA [id number] [address] WBC (Bld) [#/Vol] 9.22 10*3/uL Normal 3.70-11.00 [facility] Comment on above: Order Comment: Speci men Type: BLOOD SPECIMEN Performed By: #### 5 8410-2 ####[facility]ATORYCLIA [id number] [address] CONSULT PROGon 06-02-2021 CONSULT PROG Normal [facility] CSF MANUAL DIFFon 06-02-2021 DIF TTL, CSF 25 cells counted Normal [facility] Comment on above: Order Comment: Speci men Type: CEREBROSPINAL FLUID Performed By: #### 3 4563-7, [id number], [id number] ####[facility]ORYCLIA [id number] [address] [place] LYMPH%, CSF 4 % Low 50-90 [facility] Comment on above: Order Comment: Speci men Type: CEREBROSPINAL FLUID Performed By: #### 3 4563-7, [id number], [id number] ####[facility]ORYCLIA [id number] [address] [place] MACRO%, CSF 4 % High <1 [facility] Comment on above: Order Comment: Speci men Type: CEREBROSPINAL FLUID Performed By: #### 3 4563-7, [id number], [id number] ####[facility]ORYCLIA [id number] [address] [place] MONO%, CSF 20 % Normal 10-50 [facility] Comment on above: Order Comment: Speci men Type: CEREBROSPINAL FLUID Performed By: #### 3 4563-7, [id number], [id number] ####[facility]ORYCLIA [id number] [address] [place] NEUT%, CSF 72 % High 0-3 [facility] Comment on above: Order Comment: Speci men Type: CEREBROSPINAL FLUID Performed By: #### 3 4563-7, [id number], [id number] ####[facility]ORYCLIA [id number] [address] CSF PATHOLOGIST INTERP (LAB REFLEX ORDER-NO BILL)on 06-02-2021 CSF STAFF REVIEW Negative Normal [facility] Comment on above: Order Comment: Speci men Type: CEREBROSPINAL FLUID Performed By: #### 3 4563-7, [id number], [id number] ####[facility]ORYCLIA [id number] [address] Pathologist name Reviewed by Amador Stevens MD [facility] Comment on above: Order Comment: Speci men Type: CEREBROSPINAL FLUID Performed By: #### 3 4563-7, [id number], [id number] ####[facility]ORYCLIA [id number] [address] Cell count panel (CSF)on Clarity (CSF) Clear Normal Clear [facility] Comment on above: Order Comment: Speci men Type: CEREBROSPINAL FLUID Performed By: #### 3 4563-7, [id number], [id number] ####[facility]ORYCLIA [id number] [address] Clarity (Unsp spec) Not Indicated Normal Clear [facility] Comment on above: Order Comment: Speci men Type: CEREBROSPINAL FLUID Performed By: #### 3 4563-7, [id number], [id number] ####[facility]ORYCLIA [id number] [address] Color (CSF) Colorless Normal Colorless [facility] Comment on above: Order Comment: Speci men Type: CEREBROSPINAL FLUID Performed By: #### 3 4563-7, FZM3571, [id number] ####[facility]ORYCLIA [id number] [address] Color (Spun CSF) Not Indicated Normal Colorless [facility] Comment on above: Order Comment: Speci men Type: CEREBROSPINAL FLUID Performed By: #### 3 4563-7, [id number], [id number] ####[facility]ORYCLIA [id number] [address] CSF TUBE NUMBER Sterile Container Normal [facility] Comment on above: Order Comment: Speci men Type: CEREBROSPINAL FLUID Performed By: #### 3 4563-7, IBC2455, [id number] ####[facility]ORYCLIA [id number] [address] RBC Manual cnt (CSF) [#/Vol] 117 cells/uL High 0-5 [facility] Comment on above: Order Comment: Speci men Type: CEREBROSPINAL FLUID Performed By: #### 3 4563-7, [id number], [id number] ####[facility]ORYCLIA [id number] [address] WBC Manual cnt (CSF) [#/Vol] 1 cells/uL Normal 0-5 [facility] Comment on above: Order Comment: Speci men Type: CEREBROSPINAL FLUID Performed By: #### 3 4563-7, [id number], [id number] ####[facility]ORYCLIA [id number] [address] Glucose CSF-mCncon 2 Glucose (CSF) [Mass/Vol] [...] Glucose HK (GLUC3) [package insert V 12.0 [place]]. [employer], [place], [place]. September 2015. 2. Michelle Moore, Loki HGarfield (2015). Chapter 7: Glucose and Lactate. F. Irina rose al.(eds.), Cerebrospinal Fluid in Clinical Neurology. [place]: [employer]. Performed By: #### 2 342-4 ####[facility]ATORYCLIA [id number] [address] HEPATIC FUNCTION PNLon 06-02 Albumin [Mass/Vol] 3.2 g/dL Low 3.9-4.9 [facility] Comment on above: Order Comment: Speci men Type: BLOOD SPECIMEN Performed By: #### [place], [address]-7 ####[facility]ORYCLIA [id number] [address] ALP [Catalytic activity/Vol] 67 U/L Normal 38-113 [facility] Comment on above: Order Comment: Speci men Type: BLOOD SPECIMEN Performed By: #### [place], [address]-9 ####[facility]ORYCLIA [id number] [address] [place] ALT With P-5'-P [Catalytic activity/Vol] 16 U/L Normal 10-54 [facility] Comment on above: Order Comment: Speci men Type: BLOOD SPECIMEN Performed By: #### [place], [address]-7 ####[facility]ORYCLIA [id number] [address] AST With P-5'-P [Catalytic activity/Vol] 25 U/L Normal 14-40 [facility] Comment on above: Order Comment: Speci men Type: BLOOD SPECIMEN Performed By: #### [place], [address]-7 ####[facility]ORYCLIA [id number] [address] Bilirubin [Mass/Vol] 0.2 mg/dL Normal 0.2-1.3 [facility] Comment on above: Order Comment: Speci men Type: BLOOD SPECIMEN Performed By: #### [place] KATHIE, 97794-5 ####[facility]ORYCLIA [id number] [address] Bilirubin.conjugated [Mass/Vol] mg/dL Normal <0.2 [facility] Comment on above: Order Comment: Speci men Type: BLOOD SPECIMEN Performed By: #### [place], [address]-2 ####[facility]ORYCLIA [id number] [address] Protein [Mass/Vol] 5.8 g/dL Low 6.3-8.0 [facility] Comment on above: Order Comment: Speci men Type: BLOOD SPECIMEN Performed By: #### [place], [address]-4 ####[facility]ORYCLIA [id number] [address] MRI BRAIN WO/W IVCONon 06-02 MRI BRAIN WO/W IVCON Normal [facility] Magnesium SerPl-mCncon 06-02 Magnesium [Mass/Vol] 2.0 mg/dL Normal 1.7-2.3 [facility] Comment on above: Order Comment: Speci men Type: BLOOD SPECIMEN Performed By: #### 2 4321-2, 02949-9, 2777-1 ####[facility]ORYCLIA [id number] [address] [facility] Natriuretic peptide.B prohormone N-Terminal [Mass/Vol] 296 pg/mL High <125 [facility] Comment on above: Order Comment: Speci men Type: BLOOD SPECIMEN Performed By: #### H FP, 78455-9 ####[facility]ATORYCLIA [id number] [address] OF [facility] POTASSIUM BLDon 06-02-2021 Potassium [Moles/Vol] 3.2 mmol/L Low 3.7-5.1 [facility] Comment on above: Order Comment: Speci men Type: BLOOD SPECIMEN Performed By: #### K 1 ####[facility]ATORYCLIA [id number] [address] Phosphate [facility] 06-02 Phosphate [Mass/Vol] 2.1 mg/dL Low 2.7-4.8 [facility] Comment on above: Order Comment: Speci men Type: BLOOD SPECIMEN Performed By: #### 2 4321-2, 42191-7, 2776-05 ####[facility]ATORYCLIA [id number] [address] OF [facility] Vancomycin random [Mass/Vol] on 06-02-2021 Vancomycin [...] 091-5 ####[facility]ATORYCLIA [id number] [address] OF [facility] ALLIED HEALTHon 06-01-2021 ALLIED HEALTH Normal [facility] ALLIED HEALTH Normal [facility] ALLIED HEALTH Normal [facility] ARTERIAL BLOOD GASESon 06-01 Base excess Calc (Bld) [Moles/Vol] 1 mmol/L Normal 0-2 [facility] Comment on above: Order Comment: Speci men Type: ARTERIAL BLOOD SPECIMEN Performed By: #### A LLBG ####[facility]ORYCLIA [id number] [address] Body temperature 97.52 [degF] Normal [facility] Comment on above: Order Comment: Speci men Type: ARTERIAL BLOOD SPECIMEN Performed By: #### A LLBG ####[facility]ORYCLIA [id number] [address] CALCIUM IONIZED, PH CORRECTED 1.13 mmol/L Normal 1.08-1.30 [facility] Comment on above: Order Comment: Speci men Type: ARTERIAL BLOOD SPECIMEN Performed By: #### A LLBG ####[facility]ORYCLIA [id number] [address] STATES OF [facility] Calcium.ionized (BldV) [Mass/Vol] 1.12 mmol/L Normal 1.08-1.30 [facility] Comment on above: Order Comment: Speci men Type: ARTERIAL BLOOD SPECIMEN Performed By: #### A LLBG ####[facility]ORYCLIA [id number] [address] OF [facility] Carboxyhemoglobin (BldA) [Mass fraction] 1.6 % Normal 0.0-2.0 [facility] Comment on above: Order Comment: Speci men Type: ARTERIAL BLOOD SPECIMEN Result Comment: Carb oxyhemoglobin Reference Range for Smokers: 2.0-8.0% Performed By: #### A LLBG ####[facility]ORYCLIA [id number] [address] CO2 (Bld) [Partial pressure] 41 mm Hg Normal 36-46 [facility] Comment on above: Order Comment: Speci men Type: ARTERIAL BLOOD SPECIMEN Performed By: #### A LLBG ####[facility]ORYCLIA [id number] [address] CO2 [Moles/Vol] 23.0 mmol/L Normal 22-28 [facility] Comment on above: Order Comment: Speci men Type: ARTERIAL BLOOD SPECIMEN Performed By: #### A LLBG ####[facility]ORYCLIA [id number] [address] CO2 adjusted to patient's actual temperature (Bld) [Partial pressure] 40 mmHg Normal 36-46 [facility] Comment on above: Order Comment: Speci men Type: ARTERIAL BLOOD SPECIMEN Performed By: #### A LLBG ####[facility]ORYCLIA [id number] [address] FIO2 40 % Normal [facility] Comment on above: Order Comment: Speci men Type: ARTERIAL BLOOD SPECIMEN Performed By: #### A LLBG ####[facility]ORYCLIA [id number] [address] Glucose [Mass/Vol] 127 mg/dL High 60-105 [facility] Comment on above: Order Comment: Speci men Type: ARTERIAL BLOOD SPECIMEN Performed By: #### A LLBG ####[facility]ORYCLIA [id number] [address] HCO3 (Bld) [Moles/Vol] 25 mmol/L Normal 22-26 [facility] Comment on above: Order Comment: Speci men Type: ARTERIAL BLOOD SPECIMEN Performed By: #### A LLBG ####[facility]ORYCLIA [id number] [address] Hematocrit (Bld) [Volume fraction] 33.7 % Low 39.0-51.0 [facility] Comment on above: Order Comment: Speci men Type: ARTERIAL BLOOD SPECIMEN Performed By: #### A LLBG ####[facility]ORYCLIA [id number] [address] OF [place] Hemoglobin (Bld) [Mass/Vol] 10.9 g/dL Low 13.0-17.0 [facility] Comment on above: Order Comment: Speci men Type: ARTERIAL BLOOD SPECIMEN Performed By: #### A LLBG ####[facility]ORYCLIA [id number] [address] INHALED TIDAL VOLUME (ML) 500 Normal [facility] Comment on above: Order Comment: Speci men Type: ARTERIAL BLOOD SPECIMEN Performed By: #### A LLBG ####[facility]ORYCLIA [id number] [address] INVASIVE VENTILATOR MODE PRVC=Pressure Regulated Volume Control Normal [facility] Comment on above: Order Comment: Speci men Type: ARTERIAL BLOOD SPECIMEN Performed By: #### A LLBG ####[facility]ORYCLIA [id number] [address] Methemoglobin (Bld) [Mass fraction] % Normal 0.0-1.5 [facility] Comment on above: Order Comment: Speci men Type: ARTERIAL BLOOD SPECIMEN Performed By: #### A LLBG ####[facility]ORYCLIA [id number] [address] [place] O2 THERAPY Ventilator Normal [facility] Comment on above: Order Comment: Speci men Type: ARTERIAL BLOOD SPECIMEN Performed By: #### A LLBG ####[facility]ORYCLIA [id number] [address] [place] Oxygen (Bld) [Partial pressure] 64 mm Hg Low 85-95 [facility] Comment on above: Order Comment: Speci men Type: ARTERIAL BLOOD SPECIMEN Performed By: #### A LLBG ####[facility]ORYCLIA [id number] [address] Oxygen adjusted to patient's actual temperature (Bld) [Partial pressure] 61.8 mmHg Low 85-95 [facility] Comment on above: Order Comment: Speci men Type: ARTERIAL BLOOD SPECIMEN Performed By: #### A LLBG ####[facility]ORYCLIA [id number] [place] [address] OXYGEN SATURATION, ARTERIAL 94 % Low 95-98 [facility] Comment on above: Order Comment: Speci men Type: ARTERIAL BLOOD SPECIMEN Performed By: #### A LLBG ####[facility]ORYCLIA [id number] [address] Oxyhemoglobin (BldA) [Mass fraction] 92 % Low 95-98 [facility] Comment on above: Order Comment: Speci men Type: ARTERIAL BLOOD SPECIMEN Performed By: #### A LLBG ####[facility]ORYCLIA [id number] [address] PEEP/CPAP 5 cmH2O Normal [facility] Comment on above: Order Comment: Speci men Type: ARTERIAL BLOOD SPECIMEN Performed By: #### A LLBG ####[facility]ORATORYCLIA [id number] [address] pH (Bld) 7.40 [pH] Normal 7.35-7.45 [facility] Comment on above: Order Comment: Speci men Type: ARTERIAL BLOOD SPECIMEN Performed By: #### A LLBG ####[facility]ATORYCLIA [id number] [address] pH adjusted to patient's actual temperature (Bld) 7.41 Normal 7.35-7.45 [facility] Comment on above: Order Comment: Speci men Type: ARTERIAL BLOOD SPECIMEN Performed By: #### A LLBG ####[facility]ORYCLIA [id number] [address] Potassium [Moles/Vol] 3.1 mmol/L Low 3.5-5.0 [facility] Comment on above: Order Comment: Speci men Type: ARTERIAL BLOOD SPECIMEN Performed By: #### A LLBG ####[facility]ORYCLIA [id number] [address] SET VENTILATOR RESPIRATORY RATE (BPM) 18 BPM Normal [facility] Comment on above: Order Comment: Speci men Type: ARTERIAL BLOOD SPECIMEN Performed By: #### A LLBG ####[facility]ORYCLIA [id number] [address] Sodium [Moles/Vol] 141 mmol/L Normal 136-144 [facility] Comment on above: Order Comment: Speci men Type: ARTERIAL BLOOD SPECIMEN Performed By: #### A LLBG ####[facility]ORYCLIA [id number] [address] BASE DEFICIT, ARTERIAL -1.0 mmol/L Normal -2-0 [facility] Comment on above: Order Comment: Speci men Type: ARTERIAL BLOOD SPECIMEN Performed By: #### A LLBG ####[facility]ATORYCLIA [id number] [address] Body temperature 98.24 [degF] Normal [facility] Comment on above: Order Comment: Speci men Type: ARTERIAL BLOOD SPECIMEN Performed By: #### A LLBG ####[facility]ATORYCLIA [id number] [address] CALCIUM IONIZED, PH CORRECTED 1.08 mmol/L Normal 1.08-1.30 [facility] Comment on above: Order Comment: Speci men Type: ARTERIAL BLOOD SPECIMEN Performed By: #### A LLBG ####[facility]ATORYCLIA [id number] [address] Calcium.ionized (BldV) [Mass/Vol] 1.15 mmol/L Normal 1.08-1.30 [facility] Comment on above: Order Comment: Speci men Type: ARTERIAL BLOOD SPECIMEN Performed By: #### A LLBG ####[facility]ORYCLIA [id number] [address] Carboxyhemoglobin (BldA) [Mass fraction] 1.4 % Normal 0.0-2.0 [facility] Comment on above: Order Comment: Speci men Type: ARTERIAL BLOOD SPECIMEN Result Comment: Carb oxyhemoglobin Reference Range for Smokers: 2.0-8.0% Performed By: #### A LLBG ####[facility]ORYCLIA [id number] [place], [place] [address] [place] [address] CO2 (Bld) [Partial pressure] 59 mm Hg High 36-46 [facility] Comment on above: Order Comment: Speci men Type: ARTERIAL BLOOD SPECIMEN Performed By: #### A LLBG ####[facility]ORYCLIA [id number] [place], [place] [address] [place] [address] [place] CO2 [Moles/Vol] 24.5 mmol/L Normal 22-28 [facility] Comment on above: Order Comment: Speci men Type: ARTERIAL BLOOD SPECIMEN Performed By: #### A LLBG ####[facility]ORYCLIA [id number] [address] CO2 adjusted to patient's actual temperature (Bld) [Partial pressure] 58 mmHg High 36-46 [facility] Comment on above: Order Comment: Speci men Type: ARTERIAL BLOOD SPECIMEN Performed By: #### A LLBG ####[facility]ORYCLIA [id number] [address] [place] FIO2 40 % Normal [facility] Comment on above: Order Comment: Speci men Type: ARTERIAL BLOOD SPECIMEN Performed By: #### A LLBG ####[facility]ORYCLIA [id number] [address] Glucose [Mass/Vol] 128 mg/dL High 60-105 [facility] Comment on above: Order Comment: Speci men Type: ARTERIAL BLOOD SPECIMEN Performed By: #### A LLBG ####[facility]ORYCLIA [id number] [address] HCO3 (Bld) [Moles/Vol] 26 mmol/L Normal 22-[address] [facility] Comment on above: Order Comment: Speci men Type: ARTERIAL BLOOD SPECIMEN Performed By: #### A LLBG ####[facility]ORYCLIA [id number] [address] [place] Hematocrit (Bld) [Volume fraction] 35.6 % Low 39.0-51.0 [facility] Comment on above: Order Comment: Speci men Type: ARTERIAL BLOOD SPECIMEN Performed By: #### A LLBG ####[facility]ORYCLIA [id number] [address] Hemoglobin (Bld) [Mass/Vol] 11.5 g/dL Low 13.0-17.0 [facility] Comment on above: Order Comment: Speci men Type: ARTERIAL BLOOD SPECIMEN Performed By: #### A LLBG ####[facility]ORYCLIA [id number] [address] [place] INHALED TIDAL VOLUME (ML) 500 Normal [facility] Comment on above: Order Comment: Speci men Type: ARTERIAL BLOOD SPECIMEN Performed By: #### A LLBG ####[facility]ORYCLIA [id number] [address] INVASIVE VENTILATOR MODE PRVC=Pressure Regulated Volume Control [facility] Comment on above: Order Comment: Speci men Type: ARTERIAL BLOOD SPECIMEN Performed By: #### A LLBG ####[facility]ORYCLIA [id number] [address] OF [facility] Methemoglobin (Bld) [Mass fraction] % Normal 0.0-1.5 [facility] Comment on above: Order Comment: Speci men Type: ARTERIAL BLOOD SPECIMEN Performed By: #### A LLBG ####[facility]ORYCLIA [id number] [address] O2 THERAPY Ventilator Normal [facility] Comment on above: Order Comment: Speci men Type: ARTERIAL BLOOD SPECIMEN Performed By: #### A LLBG ####[facility]ORYCLIA [id number] [address] Oxygen (Bld) [Partial pressure] 88 mm Hg Normal 85-95 [facility] Comment on above: Order Comment: Speci men Type: ARTERIAL BLOOD SPECIMEN Performed By: #### A LLBG ####[facility]ORYCLIA [id number] [address] Oxygen adjusted to patient's actual temperature (Bld) [Partial pressure] 86.5 mmHg Normal 85-95 [facility] Comment on above: Order Comment: Speci men Type: ARTERIAL BLOOD SPECIMEN Performed By: #### A LLBG ####[facility]ORYCLIA [id number] [address] OXYGEN SATURATION, ARTERIAL 95 % Normal 95-98 [facility] Comment on above: Order Comment: Speci men Type: ARTERIAL BLOOD SPECIMEN Performed By: #### A LLBG ####[facility]ORYCLIA [id number] [address] Oxyhemoglobin (BldA) [Mass fraction] 93 % Low 95-98 [facility] Comment on above: Order Comment: Speci men Type: ARTERIAL BLOOD SPECIMEN Performed By: #### A LLBG ####[facility]ORYCLIA [id number] [address] PEEP/CPAP 5 cmH2O Normal [facility] Comment on above: Order Comment: Speci men Type: ARTERIAL BLOOD SPECIMEN Performed By: #### A LLBG ####[facility]ORYCLIA [id number] [address] OF [facility] pH (Bld) 7.27 [pH] Low 7.35-7.45 [facility] Comment on above: Order Comment: Speci men Type: ARTERIAL BLOOD SPECIMEN Performed By: #### A LLBG ####[facility]ORYCLIA [id number] [address] pH adjusted to patient's actual temperature (Bld) 7.28 Low 7.35-7.45 [facility] Comment on above: Order Comment: Speci men Type: ARTERIAL BLOOD SPECIMEN Performed By: #### A LLBG ####[facility]ORYCLIA [id number] [address] Potassium [Moles/Vol] 3.3 mmol/L Low 3.5-5.0 [facility] Comment on above: Order Comment: Speci men Type: ARTERIAL BLOOD SPECIMEN Performed By: #### A LLBG ####[facility]ORATORYCLIA [id number] [address] SET VENTILATOR RESPIRATORY RATE (BPM) 14 BPM Normal [facility] Comment on above: Order Comment: Speci men Type: ARTERIAL BLOOD SPECIMEN Performed By: #### A LLBG ####[facility]ATORYCLIA [id number] [address] Sodium [Moles/Vol] 141 mmol/L Normal 136-144 [facility] Comment on above: Order Comment: Speci men Type: ARTERIAL BLOOD SPECIMEN Performed By: #### A LLBG ####[facility]ATORYCLIA [id number] [address] Bacteria CSF Culton 06-01-19 22 Bacteria identified Cx Nom (CSF) CULTURE, CSF: No growth 14 days GRAM STAIN: No organisms seen Rare Polymorphonuclear leukocytes Moderate Red Blood Cells Gram stain performed on cytospun specimen. Normal [facility] Comment on above: Performed By: #### 6 06-4 ####[facility]ORATORYCLIA [id number] [address] Bacteria Spec Resp Culton Bacteria identified Respiratory culture Nom (Unsp spec) CULTURE, RESPIRATORY: No growth 2 days GRAM STAIN: No organisms seen No Polymorphonuclear Leukocytes Normal [facility] Comment on above: Performed By: #### 3 2355-0 ####[facility]ATORYCLIA [id number] [address] Basic metabolic 2000 panelon 06-01-2021 Anion gap [Moles/Vol] 8 mmol/L Low 9-18 [facility] Comment on above: Order Comment: Speci men Type: BLOOD SPECIMEN Performed By: #### 2 4321-2, 43213-8, 2777-1 ####[facility]ORYCLIA [id number] [address] [place] Calcium [Mass/Vol] 7.8 mg/dL Low 8.5-10.2 [facility] Comment on above: Order Comment: Speci men Type: BLOOD SPECIMEN Performed By: #### 2 4321-2, , 2776-05 ####[facility]ATORYCLIA [id number] [address] STATES [facility] Chloride [Moles/Vol] 109 mmol/L High 97-105 [facility] Comment on above: Order Comment: Speci men Type: BLOOD SPECIMEN Performed By: #### 2 4321-2, , 2776-05 ####[facility]ATORYCLIA [id number] [address] [place] CO2 [Moles/Vol] 26 mmol/L Normal 22-30 [facility] Comment on above: Order Comment: Speci men Type: BLOOD SPECIMEN Performed By: #### 2 4321-2, , 2776-05 ####[facility]ATORYCLIA [id number] [address] STATES OF [facility] Creatinine [Mass/Vol] 0.82 mg/dL Normal 0.73-1.22 [facility] Comment on above: Order Comment: Speci men Type: BLOOD SPECIMEN Performed By: #### 2 4321-2, , 2776-05 ####[facility]ATORYCLIA [id number] [address] [place] GFR/1.73 sq M.predicted [...] 2776-05 ####[facility]ORATORYCLIA [id number] [place] [address] [place] Glucose [Mass/Vol] 105 mg/dL High 74-99 [facility] Comment on above: Order Comment: Speci men Type: BLOOD SPECIMEN Result Comment: The [place] Diabetes Association (ADA) provides guidance for cutoff [...] Standards of Medical Care in Diabetes 2016, [place] Diabetes Association. Diabetes Care. 2016.39(Suppl 1). Performed By: #### 2 4320-2, , 2776-05 ####[facility]ORATORYCLIA [id number] [place] [address] [place] Potassium [Moles/Vol] 3.8 mmol/L Normal 3.7-5.1 [facility] Comment on above: Order Comment: Speci men Type: BLOOD SPECIMEN Performed By: #### 2 4320-2, , 2776-05 ####[facility]ORATORYCLIA [id number] [place] [address] [place] Sodium [Moles/Vol] 143 mmol/L Normal 136-144 [facility] Comment on above: Order Comment: Speci men Type: BLOOD SPECIMEN Performed By: #### 2 4320-2, , 2776-05 ####[facility]ATORYCLIA [id number] [place] [address] [place] Urea nitrogen [Mass/Vol] 15 mg/dL Normal 9-24 [facility] Comment on above: Order Comment: Speci men Type: BLOOD SPECIMEN Performed By: #### 2 4321-2, 65035-9, 2777-1 ####[facility]ATORYCLIA [id number] [address] CBC panel Auto (Bld)on 06-01 Erythrocyte distribution width (RBC) [Ratio] 15.4 % High 11.5-15.0 [facility] Comment on above: Order Comment: Speci men Type: BLOOD SPECIMEN Performed By: #### 5 8410-2 ####[facility]ATORYCLIA [id number] [address] Hematocrit (Bld) [Volume fraction] 38.4 % Low 39.0-51.0 [facility] Comment on above: Order Comment: Speci men Type: BLOOD SPECIMEN Performed By: #### 5 8410-2 ####[facility]ATORYCLIA [id number] [address] Hemoglobin (Bld) [Mass/Vol] 11.1 g/dL Low 13.0-17.0 [facility] Comment on above: Order Comment: Speci men Type: BLOOD SPECIMEN Performed By: #### 5 8410-2 ####[facility]ORATORYCLIA [id number] [address] MCH (RBC) [Entitic mass] 26.9 pg Normal 26.0-34.0 [facility] Comment on above: Order Comment: Speci men Type: BLOOD SPECIMEN Performed By: #### 5 8410-2 ####[facility]ATORYCLIA [id number] [address] MCHC (RBC) [Mass/Vol] 28.9 g/dL Low 30.5-36.0 [facility] Comment on above: Order Comment: Speci men Type: BLOOD SPECIMEN Performed By: #### 5 8410-2 ####[facility]ATORYCLIA [id number] [address] MCV (RBC) [Entitic vol] 93.2 fL Normal 80.0-100.0 [facility] Comment on above: Order Comment: Speci men Type: BLOOD SPECIMEN Performed By: #### 5 8410-2 ####[facility]ATORYCLIA [id number] [address] Nucleated RBC (Bld) [#/Vol] 10*3/uL Normal <0.01 [facility] Comment on above: Order Comment: Speci men Type: BLOOD SPECIMEN Performed By: #### 5 8410-2 ####[facility]ATORYCLIA [id number] [address] Platelet mean volume (Bld) [Entitic vol] 10.2 fL Normal 9.0-12.7 [facility] Comment on above: Order Comment: Speci men Type: BLOOD SPECIMEN Performed By: #### 5 8410-2 ####[facility]ATORYCLIA [id number] [address] Platelets (Bld) [#/Vol] 231 10*3/uL Normal 150-400 [facility] Comment on above: Order Comment: Speci men Type: BLOOD SPECIMEN Performed By: #### 5 8410-2 ####[facility]ATORYCLIA [id number] [address] RBC (Bld) [#/Vol] 4.12 10*6/uL Low 4.20-6.00 [facility] Comment on above: Order Comment: Speci men Type: BLOOD SPECIMEN Performed By: #### 5 8410-2 ####[facility]ATORYCLIA [id number] [address] OF [facility] WBC (Bld) [#/Vol] 10.99 10*3/uL Normal 3.70-11.00 [facility] Comment on above: Order Comment: Speci men Type: BLOOD SPECIMEN Performed By: #### 5 8410-2 ####[facility]ORATORYCLIA [id number] [address] CONSULT PROGon 06-01-2021 CONSULT PROG Normal [facility] CSF MANUAL DIFFon 06-01-2021 DIF TTL, CSF 100 cells counted Normal [facility] Comment on above: Order Comment: Speci men Type: CEREBROSPINAL FLUID Performed By: #### 3 4563-7, [id number] ####[facility]ORYCLIA [id number] [place], [place] [address] [place] [address] LYMPH%, CSF 11 % Low 50-90 [facility] Comment on above: Order Comment: Speci men Type: CEREBROSPINAL FLUID Performed By: #### 3 4563-7, [id number] ####[facility]ORYCLIA [id number] [address] OF [facility] MONO%, CSF 10 % Normal 10-50 [facility] Comment on above: Order Comment: Speci men Type: CEREBROSPINAL FLUID Performed By: #### 3 4563-7, [id number] ####[facility]ORYCLIA [id number] [address] [place] NEUT%, CSF 79 % High 0-3 [facility] Comment on above: Order Comment: Speci men Type: CEREBROSPINAL FLUID Performed By: #### 3 4563-7, [id number] ####[facility]ORYCLIA [id number] [address] [facility] CT BRAIN WO IVCONon 06-01-19 CT BRAIN WO IVCON Normal [facility] Cell count panel (CSF)on Clarity (CSF) Clear Normal Clear [facility] Comment on above: Order Comment: Speci men Type: CEREBROSPINAL FLUID Performed By: #### 3 4563-7, [id number] ####[facility]ORYCLIA [id number] [address] Clarity (Unsp spec) Not Indicated Normal Clear [facility] Comment on above: Order Comment: Speci men Type: CEREBROSPINAL FLUID Performed By: #### 3 4563-7, [id number] ####[facility]ORYCLIA [id number] [address] Color (CSF) Colorless Normal Colorless [facility] Comment on above: Order Comment: Speci men Type: CEREBROSPINAL FLUID Performed By: #### 3 4563-7, [id number] ####[facility]ORATORYCLIA [id number] [address] Color (Spun CSF) Not Indicated Normal Colorless [facility] Comment on above: Order Comment: Speci men Type: CEREBROSPINAL FLUID Performed By: #### 3 4563-7, [id number] ####[facility]ORATORYCLIA [id number] [address] CSF TUBE NUMBER Sterile Container Normal [facility] Comment on above: Order Comment: Speci men Type: CEREBROSPINAL FLUID Performed By: #### 3 4563-7, [id number] ####[facility]ATORYCLIA [id number] [address] RBC Manual cnt (CSF) [#/Vol] 171 cells/uL High 0-5 [facility] Comment on above: Order Comment: Speci men Type: CEREBROSPINAL FLUID Performed By: #### 3 4563-7, [id number] ####[facility]ATORYCLIA [id number] [address] WBC Manual cnt (CSF) [#/Vol] 5 cells/uL Normal 0-5 [facility] Comment on above: Order Comment: Speci men Type: CEREBROSPINAL FLUID Performed By: #### 3 4563-7, [id number] ####[facility]ORATORYCLIA [id number] [address] [place] FUNGAL CULTUREon 06-01-2021 FUNGAL CULTURE CULTURE, FUNGAL: No Fungus isolated after 28 days Normal [facility] Comment on above: Performed By: #### F CUL ####[facility]ORATORYCLIA [id number] [address] [place] Glucose CSF-mCncon Glucose (CSF) [...] Glucose HK (GLUC3) [package insert V 12.0 [place]]. [employer], [place], [place]. September 2015. 2. Michelle Moore, Michelle Manjarrez (2015). Chapter 7: Glucose and Lactate. F. Irina rose al.(eds.), Cerebrospinal Fluid in Clinical Neurology. [place]: [employer]. Performed By: #### 2 342-4, 2880-3 ####[facility]ORATORYCLIA [id number] [address] [place] HERPES SIMPLEX CSFon 022 HERPES SIMPLEX CSF HSV PCR SPEC SOURCE: Cerebrospinal Fluid HSV-1: Negative for Herpes Simplex Virus Type 1 by PCR HSV-2: Negative for Herpes Simplex Virus Type 2 by PCR Normal [facility] Comment on above: Performed By: #### [facility] ####[facility] LABCLIA [id number] [id number] [address] [place] Lactate (Bld) [Moles/Vol]on 06-01-2021 Lactate [Moles/Vol] 0.5 mmol/L Normal 0.5-2.2 [facility] Comment on above: Order Comment: Speci men Type: BLOOD SPECIMEN Performed By: #### 3 2693-4 ####[facility]ORATORYCLIA [id number] [address] [place] MENINGITIS ENCEPHALITIS BIOF IREon 06-01-2021 MENINGITIS ENCEPHALITIS BIOFIRE Negative Normal [facility] Comment on above: Order Comment: Speci men Type: CEREBROSPINAL FLUID Performed By: #### M GEBF ####[facility] [id number] [place] [address] Magnesium SerPl-mCncon 06-01 Magnesium [Mass/Vol] 2.2 mg/dL Normal 1.7-2.3 [facility] Comment on above: Order Comment: Speci men Type: BLOOD SPECIMEN Performed By: #### 2 4321-2, 69414-9, 2776- ####[facility]ATORYCLIA [id number] [address] Microorganism Spec Culton Microorganism identified Cx Nom (Unsp spec) CULTURE, AFB: No Acid Fast Bacilli isolated after 42 days AFB STAIN: No acid fast bacilli seen by flurochrome stain Normal [facility] Comment on above: Performed By: #### 1 1475-1 ####[facility]ORATORYCLIA [id number] [address] PROCALCITONIN (LAB)on 2021 Procalcitonin [Mass/Vol] 0.08 ng/mL Normal <0.09 [facility] Comment on above: Order Comment: Speci men Type: BLOOD SPECIMEN Result Comment: For a guided interpretation of test results, please visit the [facility] in Procalcitonin Calculator, [email or web address]. Performed By: #### P ROCAL ####[facility]ATORYCLIA [id number] [address] Phosphate SerPl-ncon 06-01 Phosphate [Mass/Vol] 3.5 mg/dL Normal 2.7-4.8 [facility] Comment on above: Order Comment: Speci men Type: BLOOD SPECIMEN Performed By: #### 2 4321-2, 84670-7, 2776-05 ####SELECT [facility]ORYCLIA [id number] [address] [place] Prot CSF-mCncon 06-01-2021 Protein (CSF) [Mass/Vol] 52 mg/dL High 15-45 [facility] Comment on above: Order Comment: Speci men Type: CEREBROSPINAL FLUID Performed By: #### 2 342-4, 2880-3 ####[facility]ORATORYCLIA [id number] [address] [place] Vancomycin random [Mass/Vol] on [...] 091-5 ####[facility] LABORATORYCLIA [id number] [address] STATES OF [facility] XR CHEST 1V FRONTALon 2021 XR CHEST 1V FRONTAL Normal [facility] XR CHEST 1V FRONTAL Normal [facility] XR NECK SOFT TISSUE 2V AP/LA Ton 06-01-2021 XR NECK SOFT TISSUE 2V AP/LAT Normal [facility] XR SKULL 2V AP/LATon 022 XR SKULL 2V AP/LAT Normal [facility] ALLIED HEALTHon 05-31-2021 ALLIED HEALTH HNO ID: [id number] Author: Christina Lynne RT(R) Service: Radiology Author Type: Technologist Type: Allied Health Filed: 05/31/2021 5:48 PM Note Text: MRI tomorrow per RN. Normal [facility] HEALTH Normal [facility] ALLIED HEALTH Normal [facility] HEALTH Normal [facility] ANES [...] 00-7 ####[facility]ORATORYCLIA [id number] [address] OF [facility] Bacteria CSF Culton 05-31-19 22 Bacteria identified Cx Nom (CSF) CULTURE, CSF: No growth 14 days GRAM STAIN: No organisms seen Rare Polymorphonuclear leukocytes Rare Red Blood Cells Gram stain performed on cytospun specimen. Normal [facility] Comment on above: Performed By: #### 6 06-4 ####[facility]ORATORYCLIA [id number] [address] OF [facility] Basic metabolic 2000 panelon 05-31-2021 Anion gap [Moles/Vol] 9 mmol/L Normal 9-18 [facility] Comment on above: Order Comment: Speci men Type: BLOOD SPECIMEN Performed By: #### 2 777-1, 21366-9, ####[facility]ATORYCLIA [id number] [address] [place] Calcium [Mass/Vol] 8.2 mg/dL Low 8.5-10.2 [facility] Comment on above: Order Comment: Speci men Type: BLOOD SPECIMEN Performed By: #### 2 777-1, 80884-4, ####[facility]ATORYCLIA [id number] [address] STATES OF [facility] Chloride [Moles/Vol] 110 mmol/L High 97-105 [facility] Comment on above: Order Comment: Speci men Type: BLOOD SPECIMEN Performed By: #### 2 777-1, , ####[facility]ATORYCLIA [id number] [address] [place] CO2 [Moles/Vol] 27 mmol/L Normal 22-30 [facility] Comment on above: Order Comment: Speci men Type: BLOOD SPECIMEN Performed By: #### 2 777-1, 38032-8, ####[facility]ORATORYCLIA [id number] [address] [place] Creatinine [Mass/Vol] 0.85 mg/dL Normal 0.73-1.22 [facility] Comment on above: Order Comment: Speci men Type: BLOOD SPECIMEN Performed By: #### 2 777-1, 15290-5, ####[facility]ATORYCLIA [id number] [place] [address] [place] GFR/1.73 sq M.predicted [...] actual GFR. Performed By: #### 2 777-1, 42517-6, 91911-2 ####[facility]ATORYCLIA [id number] [place] [address] [place] Glucose [Mass/Vol] 111 mg/dL High 74-99 [facility] Comment on above: Order Comment: Speci men Type: BLOOD SPECIMEN Result Comment: The [place] Diabetes Association (ADA) provides guidance for cutoff [...] Standards of Medical Care in Diabetes 2016, [place] Diabetes Association. Diabetes Care. 2016.39(Suppl 1). Performed By: #### 2 777-1, 08595-3, 69825-6 ####[facility]ORATORYCLIA [id number] [place] [address] [place] Potassium [Moles/Vol] 3.7 mmol/L Normal 3.7-5.1 [facility] Comment on above: Order Comment: Speci men Type: BLOOD SPECIMEN Performed By: #### 2 777-1, 91433-3, ####[facility]ORATORYCLIA [id number] [address] Sodium [Moles/Vol] 146 mmol/L High 136-144 [facility] Comment on above: Order Comment: Speci men Type: BLOOD SPECIMEN Performed By: #### 2 777-1, 73834-5, ####[facility]ORATORYCLIA [id number] [address] STATES OF [facility] Urea nitrogen [Mass/Vol] 16 mg/dL Normal 9-24 [facility] Comment on above: Order Comment: Speci men Type: BLOOD SPECIMEN Performed By: #### 2 777-1, 78880-6, ####[facility]ORATORYCLIA [id number] [address] [place] CASE MGT INIT ASSESon 2021 CASE MGT INIT ASSES Normal [facility] CBC W Auto Differential pane l (Bld)on 05-31-2021 Basophils (Bld) [#/Vol] 0.04 10*3/uL Normal <0.11 [facility] Comment on above: Order Comment: Speci men Type: BLOOD SPECIMEN Performed By: #### 5 7021-8 ####[facility]ORATORYCLIA [id number] [address] Basophils/100 WBC (Bld) 0.5 % Normal [facility] Comment on above: Order Comment: Speci men Type: BLOOD SPECIMEN Performed By: #### 5 7021-8 ####[facility]ORATORYCLIA [id number] [address] Differential cell count method Nom (Bld) Auto Normal [facility] Comment on above: Order Comment: Speci men Type: BLOOD SPECIMEN Performed By: #### 5 7021-8 ####[facility]ORATORYCLIA [id number] [address] Eosinophils (Bld) [#/Vol] 0.27 10*3/uL Normal <0.46 [facility] Comment on above: Order Comment: Speci men Type: BLOOD SPECIMEN Performed By: #### 5 7021-8 ####[facility]ORATORYCLIA [id number] [address] Eosinophils/100 WBC (Bld) 3.3 % Normal [facility] Comment on above: Order Comment: Speci men Type: BLOOD SPECIMEN Performed By: #### 5 7021-8 ####[facility]ATORYCLIA [id number] [address] Erythrocyte distribution width (RBC) [Ratio] 15.4 % High 11.5-15.0 [facility] Comment on above: Order Comment: Speci men Type: BLOOD SPECIMEN Performed By: #### 5 7021-8 ####[facility]ATORYCLIA [id number] [address] Hematocrit (Bld) [Volume fraction] 37.9 % Low 39.0-51.0 [facility] Comment on above: Order Comment: Speci men Type: BLOOD SPECIMEN Performed By: #### 5 7021-8 ####[facility]ATORYCLIA [id number] [address] Hemoglobin (Bld) [Mass/Vol] 11.5 g/dL Low 13.0-17.0 [facility] Comment on above: Order Comment: Speci men Type: BLOOD SPECIMEN Performed By: #### 5 7021-8 ####[facility]ATORYCLIA [id number] [address] IMMATURE GRAN % 0.4 % Normal [facility] Comment on above: Order Comment: Speci men Type: BLOOD SPECIMEN Performed By: #### 5 7021-8 ####[facility]ATORYCLIA [id number] [address] IMMATURE GRAN ABS 0.03 k/uL Normal <0.10 [facility] Comment on above: Order Comment: Speci men Type: BLOOD SPECIMEN Performed By: #### 5 7021-8 ####[facility]ATORYCLIA [id number] [address] Lymphocytes (Bld) [#/Vol] 1.90 10*3/uL Normal 1.00-4.00 [facility] Comment on above: Order Comment: Speci men Type: BLOOD SPECIMEN Performed By: #### 5 7021-8 ####[facility]ATORYCLIA [id number] [address] Lymphocytes/100 WBC (Bld) 23.0 % Normal [facility] Comment on above: Order Comment: Speci men Type: BLOOD SPECIMEN Performed By: #### 5 7021-8 ####[facility]ATORYCLIA [id number] [address] MCH (RBC) [Entitic mass] 28.0 pg Normal 26.0-34.0 [facility] Comment on above: Order Comment: Speci men Type: BLOOD SPECIMEN Performed By: #### 5 7021-8 ####[facility]ATORYCLIA [id number] [address] MCHC (RBC) [Mass/Vol] 30.3 g/dL Low 30.5-36.0 [facility] Comment on above: Order Comment: Speci men Type: BLOOD SPECIMEN Performed By: #### 5 7021-8 ####[facility]ATORYCLIA [id number] [address] MCV (RBC) [Entitic vol] 92.4 fL Normal 80.0-100.0 [facility] Comment on above: Order Comment: Speci men Type: BLOOD SPECIMEN Performed By: #### 5 7021-8 ####[facility]ATORYCLIA [id number] [address] Monocytes (Bld) [#/Vol] 0.60 10*3/uL Normal <0.87 [facility] Comment on above: Order Comment: Speci men Type: BLOOD SPECIMEN Performed By: #### 5 7021-8 ####[facility]ATORYCLIA [id number] [address] Monocytes/100 WBC (Bld) 7.3 % Normal [facility] Comment on above: Order Comment: Speci men Type: BLOOD SPECIMEN Performed By: #### 5 7021-8 ####[facility]ATORYCLIA [id number] [address] Neutrophils (Bld) [#/Vol] 5.41 10*3/uL Normal 1.45-7.50 [facility] Comment on above: Order Comment: Speci men Type: BLOOD SPECIMEN Performed By: #### 5 7021-8 ####[facility] LABORATORYCLIA [id number] [address] Neutrophils/100 WBC (Bld) 65.5 % Normal [facility] Comment on above: Order Comment: Speci men Type: BLOOD SPECIMEN Performed By: #### 5 7021-8 ####[facility]ATORYCLIA [id number] [address] Nucleated RBC (Bld) [#/Vol] 10*3/uL Normal <0.01 [facility] Comment on above: Order Comment: Speci men Type: BLOOD SPECIMEN Performed By: #### 5 7021-8 ####[facility]ORYCLIA [id number] [address] Nucleated RBC/100 WBC (Bld) [Ratio] 0.0 /100 WBC Normal 0.0 [facility] Comment on above: Order Comment: Speci men Type: BLOOD SPECIMEN Performed By: #### 5 7021-8 ####[facility]ATORYCLIA [id number] [address] Platelet mean volume (Bld) [Entitic vol] 9.8 fL Normal 9.0-12.7 [facility] Comment on above: Order Comment: Speci men Type: BLOOD SPECIMEN Performed By: #### 5 7021-8 ####[facility]ATORYCLIA [id number] [address] Platelets (Bld) [#/Vol] 251 10*3/uL Normal 150-400 [facility] Comment on above: Order Comment: Speci men Type: BLOOD SPECIMEN Performed By: #### 5 7021-8 ####[facility]ATORYCLIA [id number] [address] RBC (Bld) [#/Vol] 4.10 10*6/uL Low 4.20-6.00 [facility] Comment on above: Order Comment: Speci men Type: BLOOD SPECIMEN Performed By: #### 5 7021-8 ####[facility]ATORYCLIA [id number] [address] WBC (Bld) [#/Vol] 8.25 10*3/uL Normal 3.70-11.00 [facility] Comment on above: Order Comment: Speci men Type: BLOOD SPECIMEN Performed By: #### 5 7021-8 ####[facility]ORATORYCLIA [id number] [address] CONSULTon 05-31-2021 CONSULT Normal [facility] [...] 3016-3 ####[facility]ORATORYCLIA [id number] [address] Cryptoc Ag Spec Ql LAon 05-08 Cryptococcus sp Ag LA Ql (Unsp spec) Negative Normal [facility] Comment on above: Performed By: #### 4 3228-6 ####[facility]ORATORYCLIA [id number] [address] [place] HISTORY PHYSICALon 2 HISTORY PHYSICAL Normal [facility] Magnesium SerPl-ncon 05-31 Magnesium [Mass/Vol] 2.2 mg/dL Normal 1.7-2.3 [facility] Comment on above: Order Comment: Speci men Type: BLOOD SPECIMEN Performed By: #### 2 777-1, 54861-8, 38929-0 ####[facility]ATORYCLIA [id number] [address] [place] NURSING PROGon 05-31-2021 NURSING PROG Normal [facility] NUTRITIONon 05-31-2021 NUTRITION Normal [facility] OPERATIVE NOon 05-31-2021 OPERATIVE NO Normal [facility] Phosphate SerPl-mCncon 05-31 Phosphate [Mass/Vol] 3.3 mg/dL Normal 2.7-4.8 [facility] Comment on above: Order Comment: Speci men Type: BLOOD SPECIMEN Performed By: #### 2 777-1, 60235-4, ####[facility]ATORYCLIA [id number] [address] STAPH AUREUS PCRon 2 S. aureus and MRSA panel MEGAN+probe (Nose) Normal Negative [facility] Comment on above: Order Comment: Speci men Type: SWAB OF INTERNAL NOSE Result Comment: Nega tive for Staphylococcus aureus by PCR.Negative for MRSA by PCR Performed By: #### S APCR ####[facility]ORATORYCLIA [id number] [address] [place] TSH SerPl-aCncon 05-31-2021 TSH Qn 0.829 m[IU]/L Normal 0.270-4.200 [facility] Comment on above: Order Comment: Speci men Type: BLOOD SPECIMEN Performed By: #### 2 143-6, 3016-3 ####[facility]ATORYCLIA [id number] [address] XR CHEST 1V FRONTALon 2021 XR CHEST 1V FRONTAL Normal [facility] XR CHEST 1V FRONTAL Normal [facility] Blood Cultureon 05-30-2021 Bacteria identified Cx Nom (Bld) Culture Result - No growth 5 days Normal [facility] Comment on above: Performed By: #### C AD #### [facility] [address] [place] [address] Bacteria identified Cx Nom (Bld) Sp. Request/Comment: - 8.2MLS Culture Result - No growth 5 days Normal [facility] Comment on above: Performed By: #### C AD #### [facility] [address] [place] [address] C-Reactive Proteinon 022 C-Reactive Protein 1.7 mg/dL High <0.9 [facility] Comment on above: Performed By: #### C RP ####[facility] [address] [place] [phone] CNDSon 05-30-2021 [facility] HNO ID: [id number] Author: Columba Carroll PA-C Service: Hospital Medicine Author Type: Physician Temporary Staff Accountant Type: Discharge Summary Filed: 05/30/2021 12:49 PM Note Text: ----- Attestation signed by Ayaka Menjivar MD at 06/01/2021 12:53 PM Attending Note I have personally reviewed the PA/SCIENTIFIC SPECIALIST note. Agree with above assessment and plan. [...] Team: Attending Provider: Ayaka Menjivar MD Physician Temporary Staff Accountant: Columba Carroll PA-C Consulting: Lilo Mendoza MD [...] consulted. Neurology suggested empiric abx coverage for MANUAL WINDER infection Rocephin and Vancomycin was started. Tele-neuro also suggested an MRI brain be obtained prior to LP to check YOUTH ASSOCIATE shunt and decrease risk of herniation in neurosurgery capable facility. Transfer to [facility] requested. Sepsis lactate was 1.3. ABG showed pO2 67.8, placed patient on 2L NC.Follow B1, B12, and RPR pending. 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 LABS AND PROCEDURES PENDING [...] intravenously q 1 (more content not included)... [facility] CONSULTon 05-30-2021 CONSULT HNO ID: [id number] Author: Juan Carlos Mckenzie MD Service: Infectious [...] vertebrae with counting from the craniocervical junction. Supervisor Tan Room: [facility] Transcribe Date/Time: May 29 2021 8:59P Dictated by : CARLOS YOUNGER MD This examination was interpreted and the report reviewed and electronically signed by: CARLOS YOUNGER MD on May 29 2021 9:14PM EST ? CT CERVICAL SPINE WO (more content not included)... Normal [facility] CONSULT HNO ID: [id number] Author: Lilo Mendoza MD Service: Neurology General Author Type: Physician Type: Consults Filed: 05/30/2021 10:56 AM Note Text: [facility] TeleNeurology Consult Note Patient seen using [facility]. Recommendations are placed in the chart. Please review. For questions after hours, when teleneurologist is not available, for VICTORIA: Please Page [phone] for the [facility] from 12pm to 8Am Admitting Provider/Consulted by:Hermes Roca MD Time of Note:05/30/2021 Patient Name:Andrew Sifuentes Admit Date:05/29/2021 Hospital Day:0 CC: altered mental status History of Present Illness: Andrew R Gurpreet is a 71 year old unknown handed male with limited information about past medical history including venous insufficiency s/p EVLT, hydrocepalus s/p YOUTH ASSOCIATE shunt in 1987 with multiple revisions and [...] Reflexes Right Lef (more content not included)... 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 Age: [age] year old Allergies: ALLERGIES Allergen [...] IMANI Gutierres [facility] Normal [facility] Creatinineon 05-30-2021 Creatinine [Mass/Vol] 0.86 mg/dL Normal 0.73-1.22 [facility] Comment on above: Performed By: #### C RET1 ####[facility] Nvnovesgue0499 [address] eGFR- Amer. >60 Normal [facility] Comment on above: Performed By: #### C RET1 ####[facility] Ijmwpfojmz5019 [address] eGFR-All Other Races >60 Normal [facility] Comment on above: Result Comment: eGFR (Estimated [...] C RET1 ####[facility] [address] [place] [phone] Crypto Antigen Deton 022 Crypto Antigen Det Sp. Request/Comment: - SST Test Result - Duplicate request Account Credited [facility] Comment on above: Performed By: #### C AD #### [facility] [address] [place] [address] [facility] [address] [place] [address] Crypto Antigen Det Sp. Request/Comment: - SST Test Result - Cryptococcal antigen detection result: Negative By latex agglutination [facility] Comment on above: Performed By: #### C AD #### [facility] [address] [place] [id number] [facility] [address] [place] [address] ED NOTEon 05-30-2021 ED NOTE HNO ID: [id number] Author: Aletha Lopez RN Service: ? Author Type: Registered Nurse Type: ED Notes Filed: 05/29/2021 11:16 PM Note Text: Patient changed for incontinent urine, labs redrawn and sent. Patient aware of plan to be admitted and agrees with plan Normal [facility] HISTORY PHYSICALon HISTORY PHYSICAL Normal [facility] HISTORY PHYSICAL HNO ID: [id number] Author: Hermes Roca MD Service: Hospital Medicine Author Type: Physician Type: HANDP Filed: 05/30/2021 1:03 AM Note Text: DEPARTMENT OF HOSPITAL MEDICINE HISTORY AND PHYSICAL EXAM SERVICE DATE: 05/29/2021 SERVICE TIME: 11:18 PM Primary Care Physician: Mateus Burris MD NIGHT AND WEEKEND COVERAGE: Please page [phone] until 7:30am this morning. After 7:30am please check the treatment team banner and page the appropriate service. Subjective CHIEF COMPLAINT: Fall HPI: This is a 71 year old male with PMH of asthma, venous insufficiency s/p EVLT, obstructive hydrocepalus s/p YOUTH ASSOCIATE shunt in 1987 with multiple revisions and [...] included)... Normal [facility] Magnesium SerPl-mCncon 05-30 Magnesium [Mass/Vol] 2.5 mg/dL High 1.7-2.3 [facility] Comment on above: Order Comment: Speci men Type: BLOOD SPECIMEN Performed By: #### 1 9123-9, 2777-1 ####[facility]ORATORYCLIA [id number] [place] [address] [place] NURSING PROGon 05-30-2021 NURSING PROG HNO ID: [id number] Author: Precious Cervantes RN Service: ? Author Type: Registered Nurse Type: Nursing Progress Note Filed: 05/30/2021 11:26 AM Note Text: Nursing Progress Note Patient Name: Andrew Sifuentes Patient Location: [place] [address]/[id number]- Daily Note: 0700- Report received from shift supervisor melting RN, patient resting in bed at this time, call light within reach, bed low and locked. Asked the patient to state his name because shift supervisor melting RN was unable to complete his admission [...] This note was completed by: Precious Cervantes [facility] NURSING PROG HNO ID: [id number] Author: Lyubov Day RN Service: ? Author Type: Registered Nurse Type: Nursing Progress Note Filed: 05/30/2021 1:27 AM Note Text: Nursing Progress Note Patient Name: Andrew STACKN: [id number] Patient [facility]: [facility]-0217/[id number] 0100: Patient is unresponsive to questions. Patient [...] This note was completed by: Lyubov Day [facility] Phosphate SerPl-mCncon 05-30 Phosphate [Mass/Vol] 3.5 mg/dL Normal 2.7-4.8 [facility] Comment on above: Order Comment: Speci men Type: BLOOD SPECIMEN Performed By: #### 1 9123-9, 2777-1 ####[facility]ATORYCLIA [id number] [place] [address] [place] Sepsis Lactateon 05-30-2021 Sepsis Lactate 1.5 mmol/L Normal 0.5-2.0 [facility] Comment on above: Performed By: #### S LACT ####[facility] [address] [place] [phone] Syphilis Ttl w/Reflxon 05-30 Syphilis Interp Cannot exclude recen t Treponemal infection if specimen collected within 7 to 10 days after appearance of suspect lesions or 2 to 3 weeks after an exposure. Clinical correlation is required. [facility] Comment on above: Performed By: #### S SAMUEL RUCKER ####[facility] [place], [place] [phone] Syphilis Screen Rslt Non-Reactive Normal Non Reactive [facility] Comment on above: Performed By: #### S SAMUEL RUCKER ####[facility] [place], [place] [phone] THERAPY NTon 05-30-2021 THERAPY NT HNO ID: [id number] Author: Bette Jimenez OTR/L Service: Occupational Therapy Author Type: Occupational Therapist Type: Therapy (PT/OT/Speech/Resp) Filed: 05/30/2021 10:29 AM Note Text: OCCUPATIONAL THERAPY MISSED VISIT SERVICE DATE: 05/30/2021 SERVICE TIME: 1017 to 1019 ROOM: [place] [address] Attempted Evaluation. Patient not seen due to Not following commands. Per nursing patient was seen by neuro and they are talking about having him transferred to [facility] secondary to shunt concerns. Will re attempt in the event patient continues to be admitted at [place] and is able to participate. SIGNATURE: RADHA Andres/L PATIENT NAME: Andrew Sifuentes DATE: May 30, 2021 TIME: 10:21 AM Normal [facility] THERAPY NT HNO ID: [id number] Author: Bette Velasquez PT Service: Physical Therapy Author Type: Physical Therapist Type: Therapy (PT/OT/Speech/Resp) Filed: 05/30/2021 8:42 AM Note Text: PHYSICAL THERAPY MISSED VISIT SERVICE DATE: 05/30/2021 SERVICE TIME: 0840 to 0840 ROOM: [place] [address] Attempted Evaluation. Patient not seen due to (pt difficult to awake per RN, very lethargic). Will re-attempt when schedule permits. SIGNATURE: Bette Velasquez PT PATIENT NAME: Andrew Sifuentes DATE: May 30, 2021 TIME: 8:41 AM Normal [facility] Toxicology Screen,Uron 05-30 Amphetamines, Urine Negative Normal Negative [facility] Comment on above: Result Comment: Cuto ff threshold at 1000 ng/mL. Performed By: #### C AD #### [facility] [facility] [address] [place] [address] [facility] [address] [place], [place] [address] Barbiturates, Urine Negative Normal Negative [facility] Comment on above: Result Comment: Cuto ff threshold at 200 ng/mL. Performed By: #### C AD #### [facility]0 [place] [phone] [place] [address] Benzodiazepines, Ur Negative Normal Negative [facility] Comment on above: Result Comment: Cuto ff threshold at 200 ng/mL. Performed By: #### C AD #### [facility]0 [place] [phone] [place] [address] Cannabinoids, Urine Negative Normal Negative [facility] Comment on above: Result Comment: Cuto ff threshold at 50 ng/mL. Performed By: #### C AD #### [facility] [address] [place] [phone] Cocaine, Urine Negative Normal Negative [facility] Comment on above: Result Comment: Cuto ff threshold at 300 ng/mL. Performed By: #### C AD #### [facility] [address] [place], [place] [phone] [place] [address] Opiates, Urine Negative Normal Negative [facility] Comment on above: Result Comment: Cuto ff threshold at 300 ng/mL. Performed By: #### C AD #### [facility] [address] [place], [place] [phone] [place] [address] Oxycodone, Urine Negative Normal Negative [facility] Comment on above: Result Comment: Cuto ff [...] the same specimen through Client Services ([phone]) if contacted within 48 hours of initial testing. [1]Substance Abuse and Mental Health Services Administration (2012). Clinical Drug Testing in Primary Care Technical Assistance Publication Series 32. Department of Health and Human Services, [place], p.10. Performed By: #### C AD #### [facility] [address] [place] [phone] Phencyclidine, Urine Negative Normal Negative [facility] Comment on above: Result Comment: Cuto ff threshold at 25 ng/mL. Performed By: #### C AD #### [facility] [address] [place] [phone] Troponin Ton 05-30-2021 Troponin T <0.010 Normal 0.000-0.029 [facility] Comment on above: Performed By: #### T NT ####[facility] [address] [place] [phone] Urinalysison 05-30-2021 Bilirubin, Urine Negative Normal Negative [facility] Comment on above: Performed By: #### C AD #### [facility] [address] [place] [phone] Clarity (U) Slightly Cloudy Critically abnormal Clear [facility] Comment on above: Performed By: #### C AD #### [facility] [address] [place] [phone] Color (U) Yellow Normal Yellow [facility] Comment on above: Performed By: #### C AD #### [facility] [address] [place], [place] [address] [place], [place] [address] Glucose Ql (U) Negative Normal Negative [facility] Comment on above: Performed By: #### C AD #### [facility] [address] [place] [address] [facility] [address] [place], [place] [address] Hemoglobin/Blood,Ur Negative Normal Negative [facility] Comment on above: Performed By: #### C AD #### [facility] [address] [place] [address] [facility] [address] [place], [place] [address] Ketones Ql (U) Negative Normal Negative [facility] Comment on above: Performed By: #### C AD #### [facility] [address] [place] [address] [facility] [address] [place], [place] [address] Leukest Negative Normal Negative [facility] Comment on above: Performed By: #### C AD #### [facility] [address] [place] [address] [facility] [address] [place], [place] [address] Nitrite Ql (U) Negative Normal Negative [facility] Comment on above: Performed By: #### C AD #### [facility] [address] [place] [address] [facility] [address] [place], [place] [address] pH (U) 8.5 [pH] High 5.0-8.0 [facility] Comment on above: Performed By: #### C AD #### [facility] [address] [place] [address] [facility] [address] [place], [place] [address] Protein, Urine Negative Normal Negative [facility] Comment on above: Performed By: #### C AD #### [facility] [address] [place] [address] [facility] [address] [place], [place] [address] Specific [place], Ur 1.015 Normal 1.005-1.030 [facility] Comment on above: Performed By: #### C AD #### [facility] [address] [place] [address] [facility] [address] [place], [place] [address] Urobilinogen Qn (U) 0.2 {Marianne'U}/dL Normal 0.2-1.0 [facility] Comment on above: Performed By: #### C AD #### [facility] [address] [place] [address] [address] Vitamin B1, Whole Blon 05-30 Vitamin B1 (TDP), WB 207.1 nmol/L Normal 84.0-213.0 [facility] Comment on above: Result Comment: This assay measures the concentration of thiamine diphosphate (TDP), the primary active form of vitamin B1. Approximately 90 percent of vitamin B1 present in whole blood is TDP. Thiamine and thiamine monophosphate, which comprise the remaining 10 percent, are not measured. This test was developed and its performance characteristics determined by [facility]'s Isrrael Perez [facility] [place] ( [facility]). It has not been cleared or approved by the FDA. [facility] is regulated under CLIA as qualified to perform high complexity testing. This test is used for clinical purposes. It should not be regarded as investigational or for research. Performed By: #### S YPHTX, B1WB ####[facility] [place], [place] [phone] Vitamin B12on 05-30-2021 Cobalamin (Vitamin B12) [Mass/Vol] 494 pg/mL Normal 232-1245 [facility] Comment on above: Performed By: #### C AD #### [facility] [address] [place] [address] [place] [address] [place], [place] [address] ALLIED HEALTHon 05-29-2021 [facility] HNO ID: [id number] Author: RT Kitty(Lisa) Service: Radiology Author Type: [...] RT Kitty(R) May 29, 2021 8:51 PM [facility] HNO ID: [id number] Author: Markie Fish Service: ? Author Type: [employer]estock [employer] Attendant Type: [facility] Filed: 05/29/2021 [...] Markie Fish May 29, 2021 8:38 PM [facility] CBC and Differentialon 05-29 Abs Baso 0.05 k/uL Normal <0.11 [facility] Comment on above: Performed By: #### C MP, MG1, CBCDIF ####[facility] [address] [place] [address] Abs [place] 0.72 k/uL Normal <0.87 [facility] Comment on above: Performed By: #### C MP, MG1, CBCDIF ####[facility] [address] [place] [address] Abs Neut 7.86 k/uL High 1.45-7.50 [facility] Comment on above: Performed By: #### C MP, MG1, CBCDIF ####[place] [address] Absolute nRBC <0.01 Normal <0.01 [facility] Comment on above: Performed By: #### C MP, MG1, CBCDIF ####[place] [address] Basophils/100 WBC (Bld) 0.5 % [facility] Comment on above: Performed By: #### C MP, MG1, CBCDIF ####[place] [address] DTYPE Auto Diff Normal [facility] Comment on above: Performed By: #### C MP, MG1, CBCDIF ####[place] [address] Eosinophils (Bld) [#/Vol] 0.10 10*3/uL Normal <0.46 [facility] Comment on above: Performed By: #### C MP, MG1, CBCDIF ####[place] [address] Eosinophils/100 WBC (Bld) 0.9 % [facility] Comment on above: Performed By: #### C MP, MG1, CBCDIF ####[place] [address] Erythrocyte distribution width (RBC) [Ratio] 15.5 % High 11.5-15.0 [facility] Comment on above: Performed By: #### C MP, MG1, CBCDIF ####[place] [address] Hematocrit (Bld) [Volume fraction] 41.6 % Normal 39.0-51.0 [facility] Comment on above: Performed By: #### C MP, MG1, CBCDIF ####[facility] [address] [place] [address] Hemoglobin (Bld) [Mass/Vol] 12.7 g/dL Low 13.0-17.0 [facility] Comment on above: Performed By: #### C MP, MG1, CBCDIF ####[facility] [address] [place] [address] Lymphocytes (Bld) [#/Vol] 2.04 10*3/uL Normal 1.00-4.00 [facility] Comment on above: Performed By: #### C MP, MG1, CBCDIF ####[facility] [address] [place] [address] Lymphocytes/100 WBC (Bld) 18.9 % Normal [facility] Comment on above: Performed By: #### C MP, MG1, CBCDIF ####[facility] [address] [place] [address] MCH 27.3 pG Normal 26.0-34.0 [facility] Comment on above: Performed By: #### C MP, MG1, CBCDIF ####[facility] [address] [place] [address] MCHC (RBC) [Mass/Vol] 30.5 g/dL Normal 30.5-36.0 [facility] Comment on above: Performed By: #### C MP, MG1, CBCDIF ####[facility] [address] [place], [place] [phone] MCV (RBC) [Entitic vol] 89.5 fL Normal 80.0-100.0 [facility] Comment on above: Performed By: #### C MP, MG1, CBCDIF ####[facility] [address] [place], [place] [phone] Monocytes/100 WBC (Bld) 6.7 % Normal [facility] Comment on above: Performed By: #### C MP, MG1, CBCDIF ####[facility] [address] [place], [place] [phone] Neutrophils/100 WBC (Bld) 73.0 % Normal [facility] Comment on above: Performed By: #### C MP, MG1, CBCDIF ####[facility] [address] [place] [address] NRBCs 0.0 /100 WBC Normal 0 [facility] Comment on above: Performed By: #### C MP, MG1, CBCDIF ####[facility] Erm[address]rlb5788 [address] Platelet mean volume (Bld) [Entitic vol] 10.1 fL Normal 9.0-12.7 [facility] Comment on above: Performed By: #### C MP, MG1, CBCDIF ####[facility] [address] [place] [address] Platelets (Bld) [#/Vol] 291 10*3/uL Normal 150-400 [facility] Comment on above: Performed By: #### C MP, MG1, CBCDIF ####[facility] [address] [place] [address] RBC (Bld) [#/Vol] 4.65 10*6/uL Normal 4.20-6.00 [facility] Comment on above: Performed By: #### C MP, MG1, CBCDIF ####[facility] [address] [place] [address] WBC (Bld) [#/Vol] 10.77 10*3/uL Normal 3.70-11.00 [facility] Comment on above: Performed By: #### C MP, MG1, CBCDIF ####[facility] [address] [place] [phone] CT BRAIN WO IVCONon 05-29-19 CT BRAIN WO IVCON * * *Final Report* * * DATE OF EXAM: May 29 2021 8:42PM [facility] [place]IN [place] / PROCEDURE REASON: Head trauma, headache * * * * Physician Interpretation * * * * EXAMINATION: CT CERVICAL SPINE WO IVCON, CT BRAIN WO IVCON CLINICAL HISTORY: C-spine trauma, NEXUS/CCR positive (accession [id number]), Head trauma, headache (accession [id number]) TECHNIQUE: Serial axial unenhanced images were obtained from the vertex to the foramen magnum. Spiral, high resolution axial unenhanced images were obtained from the skull base to the cervicothoracic junction with sagittal and coronal planar reconstructions. Dose-Length Product (DLP): 2132 mGy*cm. CT Dose Reduction Employed: Automated exposure control (AEC) COMPARISON: 08/13/[address] RESULT: BRAIN: Post-operative change: Right parietal approach YOUTH ASSOCIATE shunt is intact. The intracranial fragments of [...] vertebrae with counting from the craniocervical junction. Supervisor Tan Room: OG Transcribe Date/Time: May 29 2021 8:59P Dictated by : CARLOS YOUNGER MD This examination was interpreted and the report reviewed and electronically signed by: CARLOS YOUNGER MD on May 29 2021 9:14PM EST [id number] [facility] CT CERVICAL SPINE WO IVCONon 05-29-2021 CT CERVICAL SPINE WO IVCON * * *Final Report* * * DATE OF EXAM: May 29 2021 8:42PM [facility] [place] CERVICAL SPINE WO IVCON / PROCEDURE REASON: C-spine trauma, NEXUS/CCR positive * * * * Physician Interpretation * * * * EXAMINATION: CT CERVICAL SPINE WO IVCON, CT BRAIN WO IVCON CLINICAL HISTORY: C-spine trauma, NEXUS/CCR positive (accession [id number]), Head trauma, headache (accession [id number]) TECHNIQUE: Serial axial unenhanced images were obtained from the vertex to the foramen magnum. Spiral, high resolution axial unenhanced images were obtained from the skull base to the cervicothoracic junction with sagittal and coronal planar reconstructions. Dose-Length Product (DLP): 2132 mGy*cm. CT Dose Reduction Employed: Automated exposure control (AEC) COMPARISON: 08/13/[address] RESULT: BRAIN: Post-operative change: Right parietal approach YOUTH ASSOCIATE shunt is intact. The intracranial fragments of [...] vertebrae with counting from the craniocervical junction. Supervisor Tan [facility] Transcribe Date/Time: May 29 2021 8:59P Dictated by : CARLOS YOUNGER MD This examination was interpreted and the report reviewed and electronically signed by: CARLOS YOUNGER MD on May 29 2021 9:14PM EST [id number] [facility] Cepheid Bill only (EXCFR)on 05-29-2021 Cepheid Bill only (EXCFR) Billed for services performed Normal [facility] Comment on above: Performed By: #### C AD #### [facility] [address] [place] [address] [facility] [address] [place], [place] [address] Comp Metabolic Panelon 05-29 Albumin [Mass/Vol] 4.1 g/dL Normal 3.9-4.9 [facility] Comment on above: Performed By: #### C MP ####[facility] [address] [place] [address] ALP [Catalytic activity/Vol] 86 U/L Normal 38-113 [facility] Comment on above: Performed By: #### C MP ####[facility] [address] [place] [address] ALT [Catalytic activity/Vol] 15 U/L Normal 10-54 [facility] Comment on above: Performed By: #### C MP ####[facility] [address] [place] [address] Anion gap [Moles/Vol] 9 mmol/L Normal 9-18 [facility] Comment on above: Performed By: #### C MP ####[facility] [address] [place] [address] AST [Catalytic activity/Vol] 22 U/L Normal 14-40 [facility] Comment on above: Performed By: #### C MP ####[facility] [address] [place] [address] Bilirubin [Mass/Vol] 0.2 mg/dL Normal 0.2-1.3 [facility] Comment on above: Performed By: #### C MP ####[facility] [address] [place] [address] Calcium [Mass/Vol] 9.1 mg/dL Normal 8.5-10.2 [facility] Comment on above: Performed By: #### C MP ####[facility] [address] [place] [address] Chloride [Moles/Vol] 103 mmol/L Normal 97-105 [facility] Comment on above: Performed By: #### C MP ####[facility] [address] [place] [address] CO2 [Moles/Vol] 29 mmol/L Normal 22-30 [facility] Comment on above: Performed By: #### C MP ####[facility] [address] [place] [address] Creatinine [Mass/Vol] 0.89 mg/dL Normal 0.73-1.22 [facility] Comment on above: Performed By: #### C MP ####[facility] [address] [place] [address] eGFR- Amer. >60 Normal [facility] Comment on above: Performed By: #### C MP ####[facility] [address] [place] [address] eGFR-All Other Races >60 Normal [facility] Comment on above: Result Comment: eGFR (Estimated [...] C MP ####[facility] X[address]ktkb9[address] Glucose [Mass/Vol] 120 mg/dL High 74-99 [facility] Comment on above: Result Comment: The [place] Diabetes Association (ADA) provides guidance for cutoff [...] Standards of Medical Care in Diabetes 2016, [place] Diabetes Association. Diabetes Care. 2016.39(Suppl 1). Performed By: #### C MP ####[facility] [address] [place] [address] Potassium [Moles/Vol] 4.2 mmol/L Normal 3.7-5.1 [facility] Comment on above: Performed By: #### C MP ####[facility] [address] [place] [address] Protein [Mass/Vol] 7.1 g/dL Normal 6.3-8.0 [facility] Comment on above: Performed By: #### C MP ####[place] [address] Sodium [Moles/Vol] 141 mmol/L Normal 136-144 [facility] Comment on above: Performed By: #### C MP ####[facility] [address] [place] [address] Urea nitrogen [Mass/Vol] 11 mg/dL Normal 9-24 [facility] Comment on above: Performed By: #### C MP ####[place] [address] Albumin [Mass/Vol] 4.1 g/dL Normal 3.9-4.9 [facility] Comment on above: Performed By: #### C MP, MG1, CBCDIF ####[place] [address] ALP [Catalytic activity/Vol] 86 U/L Normal 38-113 [facility] Comment on above: Performed By: #### C MP, MG1, CBCDIF ####[place] [address] ALT Unable to assay due to interference from hemolysis. Suggest reorder as clinically indicated. Normal 10-54 [facility] Comment on above: Result Comment: Call ed to LISA Rea at 2129 on 05.29.21 by Sabino Performed By: #### C MP, MG1, CBCDIF ####[facility] [address] [place] [address] Anion gap [Moles/Vol] 12 mmol/L Normal 9-18 [facility] Comment on above: Performed By: #### C MP, MG1, CBCDIF ####[facility] [address] [place] [address] AST Unable to assay due to interference from hemolysis. Suggest reorder as clinically indicated. Normal 14-40 [facility] Comment on above: Result Comment: Call ed to ED Álvaro at 2129 on 05.29.21 by Sabino Performed By: #### C MP, MG1, CBCDIF ####[facility] [address] [place] [address] Bilirubin [Mass/Vol] 0.2 mg/dL Normal 0.2-1.3 [facility] Comment on above: Performed By: #### C MP, MG1, CBCDIF ####[facility] [address] [place] [address] Calcium [Mass/Vol] 9.0 mg/dL Normal 8.5-10.2 [facility] Comment on above: Performed By: #### C MP, MG1, CBCDIF ####[facility] [address] [place] [address] Chloride [Moles/Vol] 102 mmol/L Normal 97-105 [facility] Comment on above: Performed By: #### C MP, MG1, CBCDIF ####[facility] [address] [place] [address] CO2 [Moles/Vol] 27 mmol/L Normal 22-30 [facility] Comment on above: Performed By: #### C MP, MG1, CBCDIF ####[facility] [address] [place] [address] Creatinine [Mass/Vol] 0.75 mg/dL Normal 0.73-1.22 [facility] Comment on above: Performed By: #### C MP, MG1, CBCDIF ####[facility] [address] [place] [address] eGFR- Amer. >60 Normal [facility] Comment on above: Performed By: #### C MP, MG1, CBCDIF ####[facility] [address] [place] [phone] eGFR-All Other Races >60 Normal [facility] Comment on above: Result Comment: eGFR (Estimated [...] By: #### C MARÍA ELENA, MG1, CBCDIF ####[facility] [address] [place] [phone] Glucose [Mass/Vol] 112 mg/dL High 74-99 [facility] Comment on above: Result Comment: The [place] Diabetes Association (ADA) provides guidance for cutoff [...] Standards of Medical Care in Diabetes 2016, [place] Diabetes Association. Diabetes Care. 2016.39(Suppl 1). Performed By: #### C MP, MG1, CBCDIF ####[facility] [address] [place] [phone] Potassium Unable to assay due to interference from hemolysis. Suggest reorder as clinically indicated. Normal 3.7-5.1 [facility] Comment on above: Result Comment: Call ed to ED Álvaro at 2129 on 05.29.21 by Sabino Performed By: #### C MP, MG1, CBCDIF ####[facility] [address] [place] [phone] Protein [Mass/Vol] 7.3 g/dL Normal 6.3-8.0 [facility] Comment on above: Performed By: #### C MP, MG1, CBCDIF ####[facility] [address]ves[address]721-5160 Sodium [Moles/Vol] 141 mmol/L Normal 136-144 [facility] Comment on above: Performed By: #### C MP, MG1, CBCDIF ####[facility] [address] [place] [phone] Urea nitrogen [Mass/Vol] 11 mg/dL Normal 9-24 [facility] Comment on above: Performed By: #### C MP, MG1, CBCDIF ####[facility] [address] [place] [phone] ED PROV NOTEon 05-29-2021 ED PROV NOTE HNO ID: [id number] Author: Shanell Slaughter MD Service: ? Author [...] No radiographic evidence of acute cardiopulmonary disease. Supervisor Tan Room: [facility] Transcribe Date/Time: May 29 2021 [...] vertebrae with counting from the craniocervical junction. Supervisor Tan Room: [facility] Transcribe Date/Time: May 29 2021 [...] vertebrae with counting from the craniocervical junction. Supervisor Tan Room: [facility] Transcribe Date/Time: May 29 (more content not included)... Normal [facility] ED PROV NOTE HNO ID: [id number] Author: Flavio Pandya DO Service: Emergency Medicine Author Type: Physician Type: ED Provider Notes Filed: 05/29/2021 7:10 PM Note Text: ED Provider Note Patient Name: Andrew Sifuentes SERVICE DATE: 05/29/21 History Patient presents with: Fall 71 yo male non-smoker, hx of HTN, 2 YOUTH ASSOCIATE shunts, PE (not on anticoagulation now), asthma, [...] from bedside clinician. Provider Location: Non[facility] Facility Patient Location: Outpatient Hospital Physical [...] Flavio Pandya, DO Flavio Pandya, 05/29/211909 Normal [facility] EXCOVD, Flu A/B, RSV (On int erfaces 1102,1120)on 05-29-2021 Influenza A PCR Negative Normal [facility] Comment on above: Performed By: #### C AD #### [facility] [address] [place], [place] [id number] [place] [address] Influenza B PCR Negative Normal [facility] Comment on above: Performed By: #### C AD #### [facility] [address] [place], [place] [id number] [place] [address] RSV PCR Negative Normal [facility] Comment on above: Result Comment: This test has been authorized by [facility] under an Emergency Use Authorization (EUA). Performed By: #### C AD #### [facility] [address] [place] [address] SARS-CoV-2 (COVID-19) RNA MEGAN+probe Ql (Unsp spec) UPPER RESPIRATORY TRACT SWAB Normal [facility] Comment on above: Performed By: #### C AD #### [facility] [address] [place], [place] [id number] [place] [address] SARS-CoV-2 (COVID-19) RNA MEGAN+probe Ql (Unsp spec) Negative for COVID19 (SARS CoV2) by RT-PCR or equivalent method. Normal Negative for COVID19 (SARS CoV2) by RT-PCR or equivalent method. [facility] Comment on above: Result Comment: This test has been authorized by [facility] under an Emergency Use Authorization (EUA). Performed By: #### C AD #### [facility] [address] [place], [place] [id number] [place] [phone] Magnesiumon 05-29-2021 Magnesium [Mass/Vol] 2.2 mg/dL Normal 1.7-2.3 [facility] Comment on above: Performed By: #### C MP, MG1, CBCDIF ####[phone] NT Pro BNPon 05-29-2021 PRO B Natr Peptide 303 pg/mL High <125 [facility] Comment on above: Performed By: #### N TBNP ####[facility] Caokfdgylm1972 [phone] Troponin Ton 05-29-2021 Troponin T <0.010 Normal 0.000-0.029 [facility] Comment on above: Performed By: #### T NT ####[facility] [id number] [place] [phone] Troponin T Unable to assay due to interference from hemolysis. Suggest reorder as clinically indicated. Normal 0.000-0.029 [facility] Comment on above: Result Comment: Call ed to ED Álvaro at 2129 on 05.29.21 by Sabino Performed By: #### T NT ####[facility] [id number] [phone] XR CHEST 1V FRONTAL PORTon 0 [...] No radiographic evidence of acute cardiopulmonary disease. Supervisor Tan Room: OG Transcribe Date/Time: May 29 2021 8:53P Dictated by : ROLY BANGURA MD This examination was interpreted and the report reviewed and electronically signed by: ROLY BANGURA MD on May 29 2021 8:54PM EST [id number] Normal [facility] COMPREHENSIVE PANELon 2020 Albumin [Mass/Vol] 3.9 g/dL Normal 3.4 - 5.0 [facility] Comment on above: Order Comment: PATIE NT FASTING Performed By: #### C MP #### [facility] [address] [place] [address] ALP [Catalytic activity/Vol] 71 U/L Normal 33 - 136 [facility] Comment on above: Order Comment: PATIE NT FASTING Performed By: #### C MP #### [facility] [address] [place] [address] ALT [Catalytic activity/Vol] 19 U/L Normal 10 - 52 [facility] Comment on above: Order Comment: PATIE NT FASTING Result Comment: Nasima ents treated with Sulfasalazine may generate falsely decreased results for ALT. Performed By: #### C MP #### [facility] [address] [place] [address] Anion gap [Moles/Vol] 13 mmol/L Normal 10 - 20 [facility] Comment on above: Order Comment: PATIE NT FASTING Performed By: #### C MP #### [facility] [address] [place] [address] AST [Catalytic activity/Vol] 20 U/L Normal 9 - 39 [facility] Comment on above: Order Comment: PATIE NT FASTING Performed By: #### C MP #### [facility] [address] [place] [address] Bilirubin [Mass/Vol] 0.6 mg/dL Normal 0.0 - 1.2 [facility] Comment on above: Order Comment: PATIE NT FASTING Performed By: #### C MP #### [facility] [address] [place] [address] Calcium [Mass/Vol] 9.0 mg/dL Normal 8.6 - 10.6 [facility] Comment on above: Order Comment: PATIE NT FASTING Performed By: #### C MP #### [facility] [address] [place] [address] Chloride [Moles/Vol] 103 mmol/L Normal 98 - 107 [facility] Comment on above: Order Comment: PATIE NT FASTING Performed By: #### C MP #### [facility] [address] [place] [address] Creatinine [Mass/Vol] 0.94 mg/dL Normal 0.50 - 1.30 [facility] Comment on above: Order Comment: PATIE NT FASTING Performed By: #### C MP #### [facility] [address] [place] [address] GFR- AM. >60 Normal >60 [facility] Comment on above: Order Comment: PATIE NT FASTING Result Comment: CALC ULATIONS OF ESTIMATED GFR ARE PERFORMED USING THE MDRD STUDY EQUATION FOR THE IDMS-TRACEABLE CREATININE METHODS. CLIN CHEM 2007;53:766-72 Performed By: #### C MP #### [facility] [address] [place] [address] GFR-NON AM. >60 Normal >60 [facility] Comment on above: Order Comment: PATIE NT FASTING Performed By: #### C MP #### [facility] [address] [place] [address] Glucose [Mass/Vol] 85 mg/dL Normal 74 - 99 [facility] Comment on above: Order Comment: PATIE NT FASTING Performed By: #### C MP #### [facility] [address] [place] [address] HCO3 (Bld) [Moles/Vol] 30 mmol/L Normal 21 - 32 [facility] Comment on above: Order Comment: PATIE NT FASTING Performed By: #### C MP #### [facility] [address] [place] [address] Potassium [Moles/Vol] 4.1 mmol/L Normal 3.5 - 5.3 [facility] Comment on above: Order Comment: PATIE NT FASTING Performed By: #### C MP #### [facility] [address] [place] [address] Protein [Mass/Vol] 6.6 g/dL Normal 6.4 - 8.2 [facility] Comment on above: Order Comment: PATIE NT FASTING Performed By: #### C MP #### [facility] [address] [place] [address] Sodium [Moles/Vol] 142 mmol/L Normal 136 - 145 [facility] Comment on above: Order Comment: PATIE NT FASTING Performed By: #### C MP #### [facility] [address] [place] [address] Urea nitrogen [Mass/Vol] 14 mg/dL Normal 6 - 23 [facility] Comment on above: Order Comment: PATIE NT FASTING Performed By: #### C MP #### [facility] [address] [place] [address] LIPID PANEL (CORONARY RISK 2 )on 09-03-2020 Cholesterol [Mass/Vol] 210 mg/dL High 0 - 199 [facility] Comment on above: Order Comment: PATIE [...] Performed By: #### L IPID #### [facility] [address] [place] [address] Cholesterol in HDL [Mass/Vol] 50.1 mg/dL Normal [facility] Comment on above: Order Comment: PATIE NT FASTING Result Comment: . AGE VERY LOW LOW NORMAL HIGH 0-19 Y < 35 < 40 40-45 ---- 20-24 Y ---- < 40 >45 ---- >24 Y ---- < 40 40-60 >60 . Performed By: #### L IPID #### [facility] [address] [place] [address] Cholesterol in LDL [Mass/Vol] 130 mg/dL High 0 - 99 [facility] Comment on above: Order Comment: PATIE NT FASTING Result Comment: . NEAR BORD AGE DESIRABLE OPTIMAL HIGH HIGH VERY HIGH 0-19 Y 0 - 109 --- 110-129 >/= 130 ---- 20-24 Y 0 - 119 --- 120-159 >/= 160 ---- >24 Y 0 - 99 100-129 130-159 160-189 >/=190 . Performed By: #### L IPID #### [facility] [address] [place] [address] Cholesterol in VLDL [Mass/Vol] 30 mg/dL Normal 0 - 40 [facility] Comment on above: Order Comment: PATIE NT FASTING Performed By: #### L IPID #### [facility] [address] [place] [address] Cholesterol.total/Chol esterol in HDL [Mass ratio] 4.2 {ratio} Normal [facility] Comment on above: Order Comment: PATIE NT FASTING Result Comment: REF VALUES DESIRABLE < 3.4 HIGH RISK > 5.0 Performed By: #### L IPID #### [facility] [address] [place] [address] Triglyceride [Mass/Vol] 152 mg/dL High 0 - 149 [facility] Comment on above: Order Comment: PATIE [...] Performed By: #### L IPID #### [facility] [address] [place] [address] PROSTATE SPEC.AG,SCREENon PROSTATE SPEC.AG,SCREEN 0.37 ng/mL Normal 0.00 - 4.00 [facility] Comment on above: Order Comment: PATIE NT FASTING Result Comment: The FDA requires that the method used for PSA assay be reported to the physician. Values obtained with different assay methods must not be used interchangeably. This test was performed at [facility] using the [employer] PSA method, which is a sandwich immunoassay using chemiluminescence for quantitation. The assay is approved for measurement of prostate-specific antigen (PSA) in serum and may be used in conjunction with a digital rectal examination in men 50 years and older as an aid in detection of prostate cancer. 6-Rtzdu-knhbkxuij inhibitors (e.g. Proscar, Finasteride, Avodart, Dutasteride and Elizabeth) for the treatment of BPH have been shown to lower PSA levels by an average of 50% after 6 months of treatment. Performed By: #### P SAS #### [facility] [address] [place] [address] TSH WITH REFLEX TO FREE T4 I F ABNORMALon 09-03-2020 TSH Qn 0.97 m[IU]/L Normal 0.44 - 3.98 [facility] Comment on above: Order Comment: PATIE NT FASTING Result Comment: TSH testing is performed using different testing methodology at [facility] than at other [facility]. Direct result comparisons should only be made within the same method. Performed By: #### T HYDS #### [facility] [address] [place] [address] CBC AND DIFFERENTIALon 09-02 % AUTOMATED IMMATURE GRAN 0.3 % Normal 0.0 - 0.9 [facility] Comment on above: Order Comment: PATIE NT FASTING Result Comment: [place] Granulocyte Count (IG) includes promyelocytes, myelocytes and metamyelocytes but does not include bands. Percent differential counts (%) should be interpreted in the context of the absolute cell counts (cells/L). Performed By: #### C BCDF #### [facility] [address] [place] [address] Basophils (Bld) [#/Vol] 0.07 10*3/uL Normal 0.00 - 0.10 [facility] Comment on above: Order Comment: PATIE NT FASTING Result Comment: Auto mated WBC differential has been confirmed by manual smear. Performed By: #### C BCDF #### [facility] [address] [place] [address] Basophils/100 WBC (Bld) 0.9 % Normal 0.0 - 2.0 [facility] Comment on above: Order Comment: PATIE NT FASTING Performed By: #### C BCDF #### [facility] [address] [place] [address] Eosinophils (Bld) [#/Vol] 0.21 10*3/uL Normal 0.00 - 0.70 [facility] Comment on above: Order Comment: PATIE NT FASTING Performed By: #### C BCDF #### [facility] [address] [place] [address] Eosinophils/100 WBC (Bld) 2.8 % Normal 0.0 - 6.0 [facility] Comment on above: Order Comment: PATIE NT FASTING Performed By: #### C BCDF #### [facility] [address] [place] [address] Lymphocytes (Bld) [#/Vol] 2.28 10*3/uL Normal 1.20 - 4.80 [facility] Comment on above: Order Comment: PATIE NT FASTING Performed By: #### C BCDF #### [place] [address] [place] [address] Lymphocytes/100 WBC (Bld) 30.9 % Normal 13.0 - 44.0 [facility] Comment on above: Order Comment: PATIE NT FASTING Performed By: #### C BCDF #### [facility] [address] [place] [address] Monocytes (Bld) [#/Vol] 0.50 10*3/uL Normal 0.10 - 1.00 [facility] Comment on above: Order Comment: PATIE NT FASTING Performed By: #### C BCDF #### [facility] [address] [place] [address] Monocytes/100 WBC (Bld) 6.8 % Normal 2.0 - 10.0 [facility] Comment on above: Order Comment: PATIE NT FASTING Performed By: #### C BCDF #### [facility] [address] [place] [address] Neutrophils (Bld) [#/Vol] 4.29 10*3/uL Normal 1.20 - 7.70 [facility] Comment on above: Order Comment: PATIE NT FASTING Performed By: #### C BCDF #### [facility] [address] [place] [address] Neutrophils/100 WBC (Bld) 58.3 % Normal 40.0 - 80.0 [facility] Comment on above: Order Comment: PATIE NT FASTING Performed By: #### C BCDF #### [facility] [address] [place] [address] Erythrocyte distribution width (RBC) [Ratio] 14.6 % High 11.5 - 14.5 [facility] Comment on above: Order Comment: PATIE NT FASTING Performed By: #### C BCDF #### [facility] [address] [place] [address] Hematocrit (Bld) [Volume fraction] 43.1 % Normal 41.0 - 52.0 [facility] Comment on above: Order Comment: PATIE NT FASTING Performed By: #### C BCDF #### [facility] [address] [place] [address] Hemoglobin (Bld) [Mass/Vol] 13.3 g/dL Low 13.5 - 17.5 [facility] Comment on above: Order Comment: PATIE NT FASTING Performed By: #### C BCDF #### [facility] [address] [place] [address] MCHC (RBC) [Mass/Vol] 30.9 g/dL Low 32.0 - 36.0 [facility] Comment on above: Order Comment: PATIE NT FASTING Performed By: #### C BCDF #### [facility] [address] [place] [address] MCV (RBC) [Entitic vol] 92 fL Normal 80 - 100 [facility] Comment on above: Order Comment: PATIE NT FASTING Performed By: #### C BCDF #### [facility] [address] [place] [address] NUCLEATED RBC 0.0 /100 WBC Normal 0.0-0.0 [facility] Comment on above: Order Comment: PATIE NT FASTING Performed By: #### C BCDF #### [facility] [address] [place] [address] Platelets (Bld) [#/Vol] 267 10*3/uL Normal 150 - 450 [facility] Comment on above: Order Comment: PATIE NT FASTING Performed By: #### C BCDF #### [facility] [address] [place] [address] RBC 4.69 x10E12/L Normal 4.50 - 5.90 [facility] Comment on above: Order Comment: PATIE NT FASTING Performed By: #### C BCDF #### [facility] [address] [place] [address] WBC (Bld) [#/Vol] 7.4 10*3/uL Normal 4.4 - 11.3 [facility] Comment on above: Order Comment: PATIE NT FASTING Performed By: #### C BCDF #### [facility] [address] [place] [address] RED CELL MORPHOLOGYon [address] CHANE[address] Few Normal [facility] Comment on above: Order Comment: PATIE NT FASTING Performed By: #### M ORP2 #### [facility] [address] [place] [address] [facility] Comment on above: Order Comment: PATIE NT FASTING Performed By: #### M ORP2 #### [facility] [address] [place] [address] [address] [facility] Comment on above: Order Comment: PATIE NT FASTING Performed By: #### M ORP2 #### [facility] [address] [place] [address] RBC FRAGMENTS Few Normal [facility] Comment on above: Order Comment: PATIE NT FASTING Performed By: #### M ORP2 #### [facility] [address] [place] [address] RBC morphology finding Nom (Bld) See Below Normal [facility] Comment on above: Order Comment: PATIE NT FASTING Performed By: #### M ORP2 #### [facility] [address] [place] [address] No Panel Informationon 01-19 76 1 [facility]-Cardiolo [...] [place] Work Phone: [email or web address] ?RetrieveTestByDateTime?P [email or web address]&Date=1 09-13-2019&Time=15%3a11%3a 03%3a00&TestType=ECG&Site =1&OutputType=PDF&Ext=PDF [facility]iol[facility]-[place] [address] [place] Work Phone: Otheron 11-13-2019 [facility] Complete Blood Count + Diffe rentialon 11-06-2019 Basophils (Bld) [#/Vol] 0.06 {x10E9/L} See Below [facility] Work Phone: Comment on above: Reference Range: 0.0 0 - 0.10 Basophils/100 WBC (Bld) 0.8 % 0.0 - 2.0 [facility] Work Phone: [phone] Eosinophils (Bld) [#/Vol] 0.18 {x10E9/L} See Below [facility] Work Phone: Comment on above: Reference Range: 0.0 0 - 0.70 Eosinophils/100 WBC (Bld) 2.5 % 0.0 - 6.0 [facility] Work Phone: Erythrocyte distribution width (RBC) [Ratio] 13.7 % See Below [facility] Work Phone: Comment on above: Reference Range: 11. 5 - 14.5 Hematocrit (Bld) [Volume fraction] 45.5 % See Below [facility] Work Phone: Comment on above: Reference Range: 41. 0 - 52.0 Hemoglobin (Bld) [Mass/Vol] 14.0 g/dL See Below [facility] Work Phone: Comment on above: Reference Range: 13. 5 - 17.5 Lymphocytes (Bld) [#/Vol] 2.15 {x10E9/L} See Below [facility] Work Phone: Comment on above: Reference Range: 1.2 0 - 4.80 Lymphocytes/100 WBC (Bld) 29.9 % See Below [facility] Work Phone: Comment on above: Reference Range: 13. 0 - 44.0 MCHC (RBC) [Mass/Vol] 30.8 g/dL below low threshold See Below [facility] Work Phone: Comment on above: Reference Range: 32. 0 - 36.0 MCV (RBC) [Entitic vol] 94 fL 80 - 100 [facility] Work Phone: Monocytes (Bld) [#/Vol] 0.49 {x10E9/L} See Below [facility] Work Phone: Comment on above: Reference Range: 0.1 0 - 1.00 Monocytes/100 WBC (Bld) 6.8 % 2.0 - 10.0 [facility] Work Phone: Neutrophils (Bld) [#/Vol] 4.30 {x10E9/L} See Below [facility] Work Phone: Comment on above: Reference Range: 1.2 0 - 7.70 Neutrophils/100 WBC (Bld) 59.9 % See Below [facility] Work Phone: Comment on above: Reference Range: 40. 0 - 80.0 Platelets (Bld) [#/Vol] 270 {x10E9/L} 150 - 450 [facility] Work Phone: RBC (Bld) [#/Vol] 4.85 {x10E12/L} See Below [facility] Work Phone: Comment on above: Reference Range: 4.5 0 - 5.90 WBC (Bld) [#/Vol] 0.0 {/100_WBC} 0.0-0.0 [facility] Work Phone: WBC (Bld) [#/Vol] 7.2 {x10E9/L} 4.4 - 11.3 [facility] Work Phone: Complete Blood Count + Differential 0.1 % 0.0 - 0.9 [facility] Work Phone: Comment on above: Immature Granulocyte Count (IG) includes promyelocytes, myelocytes and metamyelocytes but does not include bands. Percent differential counts (%) should be interpreted in the context of the absolute cell counts (cells/L). Lipid Panelon 11-06-2019 Cholesterol [Mass/Vol] 181 mg/dL 0 - 199 [facility] Work Phone: Comment on above: . AGE [...] dosing. Cholesterol in HDL [Mass/Vol] 52.1 mg/dL [facility] Work Phone: Comment on above: . AGE VERY LOW LOW N ORMAL HIGH 0-19 Y < 35 < 40 40-45 ---- 20-24 Y ---- < 40 >45 ---- >24 Y ---- < 40 40-60 >60. Cholesterol in LDL [Mass/Vol] 97 mg/dL 0 - 99 [facility] Work Phone: Comment on above: . NEAR BORD AGE IZABELLA RABLE OPTIMAL HIGH HIGH VERY HIGH 0-19 Y 0 - 109 --- 110-129 >/= 130 ---- 20-24 Y 0 - 119 --- 120-159 >/= 160 ---- >24 Y 0 - 99 100-129 130-159 160-189 >/=190. Cholesterol.total/Chol esterol in HDL [Mass ratio] 3.5 {ratio} [facility] Work Phone: Comment on above: REF VALUESDESIRABLE < 3.4HIGH RISK > 5.0 Triglyceride [Mass/Vol] 158 mg/dL above high threshold 0 - 149 [facility] Work Phone: Comment on above: . [...] Lipid Panel 32 mg/dL 0 - 40 [facility] Work Phone: Metabolic Panelon 11-06-2019 ALP [Catalytic activity/Vol] 70 U/L 33 - 136 [facility] Work Phone: Anion gap [Moles/Vol] 13 mmol/L 10 - 20 [facility] Work Phone: Bilirubin [Mass/Vol] 0.6 mg/dL 0.0 - 1.2 [facility] Work Phone: Calcium [Mass/Vol] 9.4 mg/dL 8.6 - 10.6 [facility] Work Phone: Chloride [Moles/Vol] 99 mmol/L 98 - 107 [facility] Work Phone: CO2 [Moles/Vol] 30 mmol/L 21 - 32 [facility] Work Phone: Creatinine [Mass/Vol] 0.87 mg/dL See Below [facility] Work Phone: Comment on above: Reference Range: 0.5 0 - 1.30 Glucose [Mass/Vol] 89 mg/dL 74 - 99 [facility] Work Phone: Potassium [Moles/Vol] 4.3 mmol/L 3.5 - 5.3 [facility] Work Phone: Protein [Mass/Vol] 7.3 g/dL 6.4 - 8.2 [facility] Work Phone: Sodium [Moles/Vol] 138 mmol/L 136 - 145 [facility] Work Phone: Urea nitrogen [Mass/Vol] 14 mg/dL 6 - 23 [facility] Work Phone: Otheron 11-06-2019 Albumin BCP dye [Mass/Vol] 4.4 g/dL 3.4 - 5.0 [facility] Work Phone: ALT With P-5'-P [Catalytic activity/Vol] 11 U/L 10 - 52 [facility] Work Phone: Comment on above: Patients treated wit h Sulfasalazine may generate falsely decreased results for ALT. AST With P-5'-P [Catalytic activity/Vol] 17 U/L 9 - 39 [facility] Work Phone: >60 >60 [facility] Work Phone: Comment on above: CALCULATIONS OF LUZMARIA MATED GFR ARE PERFORMED USING THE MDRD STUDY EQUATION FOR THE IDMS-TRACEABLE CREATININE METHODS. CLIN CHEM 2007;53:766-72 Culture, urine Bacteria identified Cx Nom (U) Mixed Gram Pos & Gram Neg [facility] Work Phone: Bacteria identified Cx Nom (U) Klebsiella pneumoniae sp pneum [facility] Work Phone: Vital Signs Date Time Vital Sign Value Performing Clinician Facility 09-13-2023 11:48-0400 Body height 175.3 cm Rebecca Buck MD Work Phone: [facility] 09-13-2023 11:48-0400 Body mass index (BMI) [Ratio] 25.84 kg/m2 Rebecca Buck MD Work Phone: [facility] 09-13-2023 11:48-0400 Body weight 79.38 kg Rebecca Buck MD Work Phone: [facility] 08-13-2023 09:56-0400 Body height 175.3 cm Rebecca Buck MD Work Phone: [facility] 08-13-2023 09:56-0400 Body mass index (BMI) [Ratio] 25.84 kg/m2 Rebecca Buck MD Work Phone: [facility] 08-13-2023 09:56-0400 Body weight 79.38 kg Rebecca Buck MD Work Phone: [facility] 03-02-2022 18:49-0400 Body temperature 98.01 [degF] Lanette Munguia DO Work Phone: [facility] 03-02-2022 18:49-0400 Diastolic blood pressure 72 mm[Hg] Lan[facility] DO [facility] 03-02-2022 18:49-0400 Heart rate 94 /min Lanette Munguia DO Work Phone: [facility] 03-02-2022 18:49-0400 Respiratory rate 18 /min Lanette Munguia DO Work Phone: [facility] 03-02-2022 18:49-0400 SaO2% (BldA) [Mass fraction] 98 % Lanette Munguia DO Work Phone: [facility] 03-02-2022 18:49-0400 Systolic blood pressure 104 mm[Hg] Lanette Munguia DO Work Phone: [facility] 03-02-2022 11:55-0400 Body height 175.3 cm Lanette Munguia DO Work Phone: [facility] 03-02-2022 11:55-0400 Body mass index (BMI) [Ratio] 25.84 kg/m2 Lanette Munguia DO Work Phone: [facility] 03-02-2022 11:55-0400 Body weight 79.38 kg Lanette Munguia DO Work Phone: [facility] 12-22-2021 02:08-0400 Diastolic blood pressure 67 mm[Hg] Sharon Olivia MD Work Phone: [facility] 12-22-2021 02:08-0400 Heart rate 77 /min Sharon Olivia MD [facility]: [facility] [facility] 12-22-2021 02:08-0400 Respiratory rate 16 /min Sharon Olivia MD [facility] Phone[facility] 12-22-2021 02:08-0400 SaO2% (BldA) [Mass fraction] 96 % Sharon Olivia MD Work Phone: [facility] 12-22-2021 02:08-0400 Systolic blood pressure 108 mm[Hg] Sharon Olivia MD Work Phone: [facility] 12-21-2021 23:52-0400 Body height 175.3 cm Sharon Olivia MD Work Phone: [facility] 12-21-2021 23:52-0400 Body mass index (BMI) [Ratio] 25.84 kg/m2 Sharon Olivia MD Work Phone: [facility] 12-21-2021 23:52-0400 Body temperature 97.9 [degF] Sharon Olivia MD Work Phone: [facility] 12-21-2021 23:52-0400 Body weight 79.38 kg Sharon Olivia MD Work Phone: [facility] 11-01-2021 08:41-0400 Diastolic blood pressure 77 mm[Hg] Dante Kim MD Work Phone: [facility] 11-01-2021 08:41-0400 Heart rate 75 /min Dante Kim MD Work Phone: [facility] 11-01-2021 08:41-0400 Respiratory rate 16 /min Dante Kim MD Work Phone: [facility] 11-01-2021 08:41-0400 SaO2% (BldA) [Mass fraction] 97 % Dante Kim MD Work Phone: [facility] 11-01-2021 08:41-0400 Systolic blood pressure 112 mm[Hg] Dante Kim MD Work Phone: [facility] 10-31-2021 19:13-0400 Body height 177.8 cm Dante Kim MD Work Phone: [facility] 10-31-2021 19:13-0400 Body mass index (BMI) [Ratio] 27.26 kg/m2 Dante Kim MD Work Phone: [facility] 10-31-2021 19:13-0400 Body temperature 98.49 [degF] Dante Kim MD Work Phone: [facility] 10-31-2021 19:13-0400 Body weight 86.18 kg Dante Kim MD Work Phone: [facility] 10-29-2021 07:38-0400 Body temperature 97.81 [degF] Lisa Miguel Angel DO Work Phone: [facility] 10-29-2021 07:38-0400 Diastolic blood pressure 79 mm[Hg] Lisa Miguel Angel DO Work Phone: [facility] 10-29-2021 07:38-0400 Heart rate 80 /min Lisa Miguel Angel DO Work Phone: [facility] 10-29-2021 07:38-0400 Respiratory rate 18 /min Lisa Miguel Angel DO Work Phone: [facility] 10-29-2021 07:38-0400 SaO2% (BldA) [Mass fraction] 96 % Lisa Miguel Angel DO Work Phone: [facility] 10-29-2021 07:38-0400 Systolic blood pressure 123 mm[Hg] Lisa Miguel Angel DO Work Phone: [facility] 10-25-2021 13:55-0400 Body height 170.2 cm Lisa Miguel Angel DO Work Phone: [facility] 10-21-2021 00:57-0400 Body mass index (BMI) [Ratio] 37.58 kg/m2 Lisa Miguel Angel DO Work Phone: [facility] 10-21-2021 00:57-0400 Body weight 108.86 kg Lisa Miguel Angel DO Work Phone: [facility] 07-13-2020 13:21-0500 BMI (Body Mass Index) 40.47 kg/m2 Monika Staley [facility] Work Phone: 07-13-2020 13:21-0500 Body Temperature 98 [degF] Monika Staley [facility] Work Phone: 07-13-2020 13:21-0500 [...] 1 [address] [facility] Work Phone: Comment on above: Pain Scale 01-20-2020 16:39-0400 Body height 175.26 cm Monika Staley MD MP-Cardiolog y-Med [address] [place] Work Phone: 01-20-2020 16:39-0400 Body mass index (BMI) [Ratio] 39.28 kg/m2 Monika Staley MD YG-Lwlrqyruve-Ajr [address] [place] Work Phone: 01-20-2020 16:39-0400 Body surface area Derived from formula 2.33 m2 Monika Staley MD CU-Qyfimvqjea-Cpc [address] [place] Work Phone: 01-20-2020 16:39-0400 Body weight 120.66 kg Monika Staley MD MP-Cardiolog y-Med [facility] [address] [place] Work Phone: 01-20-2020 16:39-0400 Diastolic blood pressure 84 mm[Hg] Monika Staley MD MI-Hifoilofkj-Ylc [address] [place] Work Phone: Comment on above: Location: [facility]; Position: Sitting 01-20-2020 16:39-0400 Heart rate 80 /min Monika Staley MD, MP-Cardiolog y-[facility] [address] [place] Work Phone: 01-20-2020 16:39-0400 SaO2% (BldA) [Mass fraction] 100 % Monika Staley MD SQ-Jihvtzahqd-Att [address] [place] Work Phone: Comment on above: Source: 01-20-2020 16:39-0400 Systolic blood pressure 144 mm[Hg] Monika Staley MD QJ-Sluuvjmoxk-Otw [address] [place] Work Phone: Comment on [...] Start: 03-16-2025 ambulatory Carlos Cavazos [facility] Fac[facility]ity:[facility] Start: 03-13-2025 ambulatory Carlos Quickros OLS Fac[facility]ity:[facility] Start: [facility] Start: 03-11-2025 ambulatory Carlos Quickros OLS Faci lity:[facility] Start: 03-09-2025 ambulatory Mahaveer kka flash OLS Facility:[facility] Start: 03-05-2025 [facility] Start: 03-02-2025 ambulatory Peter Katsaros OLS Faci lity:[facility] Start: 02-26-2025 ambulatory Mahaveer kka flash OLS Facility:[facility] Start: 02-23-2025 [facility] Start: 02-19-2025 ambulatory Karon muellera OLS Facility:[facility] Start: 02-16-2025 End: 02-16-2025 ambulatory Karon Faremra OLS Facility:[facility] Start: 02-12-2025 Registered [facility] Start: 02-12-2025 End: 02-12-2025 ambulatory Karon Farmera OLS Facility:[facility] Start: 02-09-2025 Registered Referred Carlos Cavazos - [employer] Start: 02-09-2025 ambulatory Carlos Cavazos OLS Faci lity:[facility] Start: 02-05-2025 Registered Referred [facility] [employer] [facility] Start: 02-05-2025 End: 02-05-2025 ambulatory Karon Farmera OLS Facility:[facility] Start: 02-02-2025 Registered Referred [facility] [employer] Start: 02-02-2025 End: 02-02-2025 ambulatory Karon Farmera OLS Facility:[facility] Start: 01-29-2025 Registered Referred [facility] Start: 01-29-2025 End: 01-29-2025 ambulatory Karon Farmera OLS Facility:[facility] Start: 01-26-2025 Registered Referred [facility] [employer] Start: 01-26-2025 End: 01-26-2025 ambulatory Karon Delacruzlla OLS Facility:[facility] Start: 01-22-2025 Registered Referred [facility] Start: 01-22-2025 End: 01-22-2025 ambulatory Carlaavenoe Delacruzlla OLS Facility:[facility] Start: 01-19-2025 Registered Referred Carlos Cavazos - [employer] Start: 01-19-2025 End: 01-19-2025 ambulatory Carlos Cavazos OLS Facility:[facility] Start: 01-15-2025 Registered Referred Karon casillas MD -[employer] Start: 01-15-2025 End: 01-15-[address] [facility] OLS Facility:[facility] Start: 01-12-2025 Registered Referred Karon casillas MD -[employer] Start: 01-12-2025 End: 01-12-[address] [facility] OLS Facility:[facility] Start: 01-08-2025 Registered Referred Karon casillas MD -[employer] Start: 01-08-2025 End: 01-08-[address] [facility] OLS Facility:[facility] Start: 01-06-2025 Registered Referred Karon casillas MD -[employer] Start: 01-06-2025 End: 01-06-[address] [facility] OLS Facility:[facility] Start: 01-01-2025 End: 01-01-[address] Monika Staley MD Work Phone: -[employer] [employer] Start: 01-01-2025 End: 01-01-2025 Departed Referred Karon Corrales MD -[employer] Start: 01-01-2025 Registered Referred Karon casillas MD -[employer] Start: 01-01-2025 End: 01-01-2025 [facility] Start: 12-29-2024 Registered Referred Carlos Cavazos - [employer] Start: 12-29-2024 End: 12-29-2024 ambulatory Carlos Cavazos OLS Facility:[facility] Start: 12-26-2024 End: 12-26-[address] Monika Staley MD Work Phone: -[facility] [employer] Start: 12-26-2024 End: 12-26-2024 Departed Referred Karon Corrales MD -[employer] Start: 12-26-2024 Registered Referred Karon casillas MD -[employer] Start: 12-26-2024 End: 12-26-2024 ambulatory Mahaveer Mukkamalla OLS Facility:[facility] Start: 12-25-2024 Registered Referred Karon casillas MD -[employer] Start: 12-24-2024 End: 12-25-2024 ambulatory Mahaveer Mukkamalla OLS Facility:[facility] Start: 12-24-2024 Registered Referred Carlos Lópezsaros - [employer] Start: 12-22-2024 ambulatory [facility] flash OLS Facility:[facility] Start: 12-22-2024 Registered Referred Karon casillas MD -[employer] Start: 12-18-2024 Registered Referred Karon casillas MD -[employer] Start: 12-18-2024 End: 12-18-2024 ambulatory Carlaaveer Princeamalla OLS Facility:[facility] Start: 12-15-2024 [facility] Start: 12-15-2024 Registered Referred Karon casillas MD -[employer] Start: 12-11-2024 Registered Referred Carlos Cavazos - [employer] Start: 12-11-2024 End: 12-11-2024 ambulatory Carlos Maribelkameron OLS Facility:[facility] Start: 12-08-2024 Registered Referred Karon casillas MD -[employer] Start: 12-08-2024 End: 12-08-2024 ambulatory Mahaveer Mukkamalla OLS Facility:[facility] Start: 12-04-2024 Registered Referred Karon casillas MD -[employer] Start: 12-04-2024 End: 12-04-2024 ambulatory Mahaveer kkamalla OLS Facility:[facility] Start: 12-02-2024 [facility] Start: 12-02-2024 Registered Referred Karon casillas MD -[employer] Start: 12-01-2024 ambulatory Carlos NOVAK Faci lity:[facility] Start: 12-01-2024 Registered Referred Carlos Cavazos - [employer] Start: 11-28-2024 Registered Referred Carlos Cavazos - [employer] Start: 11-28-2024 End: 11-28-2024 ambulatory Carlos Cavazos OLS Facility:[facility] Start: 11-27-2024 Registered Referred Karon casillas MD -[employer] Start: 11-27-2024 End: 11-27-2024 ambulatory Karon inga OLS Facility:[facility] Start: 11-24-[facility] Start: 11-24-2024 Registered Referred Karon casillas MD -[employer] Start: 11-20-2024 Registered Referred Karon casillas MD -[employer] Start: 11-20-2024 End: 11-20-2024 ambulatory Karon NOVAK Facility:[facility] Start: 11-17-2024 ambulatory Shiela Luís Facili ty:[facility] Start: 11-17-2024 Registered Referred Karon casillas MD -[employer] Start: 11-13-2024 ambulatory Shiela Luís Facili ty:[facility] Start: 11-13-2024 Registered Referred Karon casillas MD -[employer] Start: 11-10-2024 [facility] Start: 11-10-2024 Registered Referred Karon casillas MD -[employer] Start: 11-06-2024 Registered Referred Karon casillas MD -[employer] Start: 11-06-2024 End: 11-06-2024 ambulatory Karon Corrales OLS Facility:[facility] Start: 11-03-2024 End: 11-03-[address] Monika Staley MD Work Phone: [facility] Start: 11-03-2024 End: 11-03-2024 Departed Referred Carlos Maribelkameron -[employer] Start: 11-03-2024 Registered Referred Carlos Maribelkameron - [employer] Start: 11-03-2024 End: 11-03-2024 ambulatory Carlos Cavazos OLS Facility:[facility] Start: 10-30-2024 End: 10-30-[address] Monika Staley MD Work Phone: [facility] Start: 10-30-2024 End: 10-30-2024 Departed Referred Karon Corrales MD -[facility] [employer] Start: 10-30-2024 Registered Referred Karon casillas MD -[employer] Start: 10-30-2024 End: 10-30-2024 ambulatory Monika Staley Facility:[facility] Start: 10-27-2024 Registered Referred Karon casillas MD -[employer] Start: 10-27-2024 End: 10-27-2024 ambulatory Karon NOVAK Facility:[facility] Start: 10-23-2024 Registered Referred Karon casillas MD -[employer] Start: 10-23-2024 End: 10-23-2024 ambulatory Monika Staley Facility:[facility] Start: 10-20-2024 End: 10-20-[address] Monika Staley MD Work Phone: [facility] Start: 10-20-2024 End: 10-20-2024 Departed Referred Karon Corrales MD -[employer] Start: 10-20-2024 Registered Referred Karon casillas MD -[employer] Start: 10-20-2024 End: 10-20-2024 ambulatory Karon Corrales OLS Facility:[facility] Start: 10-16-2024 ambulatory Monika Horner Luís Facili ty:[facility] Start: 10-16-2024 Registered Referred Karon casillas MD -[employer] Start: 10-13-2024 ambulatory Carlos Cavazos OLS Faci lity:[facility] Start: 10-13-2024 Registered Referred Carlos Cavazos - [employer] Start: 10-09-2024 ambulatory Shiela Luís Facili ty:[facility] Start: 10-09-2024 Registered Referred Karon casillas MD -[employer] Start: 10-06-2024 ambulatory Carlos Cavazos OLS Faci lity:[facility] Start: 10-06-2024 Registered Referred Carlos Cavazos - [employer] Start: 10-02-2024 ambulatory Shiela Luís Facili ty:[facility] Start: 10-02-2024 Registered Referred Karon casillas MD -[employer] Start: 09-30-2024 End: 09-30-[address] Monika Staley MD Work Phone: [facility] Work Phone: Start: 09-30-2024 End: 09-30-2024 Departed Referred Karon Corrales MD -[facility] [employer] Start: 09-30-2024 Registered Referred Karon casillas MD -[employer] Start: 09-30-2024 End: 09-30-2024 ambulatory Karon NOVAK Facility:[facility] Start: 09-25-2024 ambulatory Karon vidales OLS Facility:[facility] Start: 09-25-2024 Registered Referred Karon ReederDaisy [facility] [employer] Start: 09-22-2024 End: 09-22-[address] Monika Staley MD Work Phone: -[facility] [employer] Start: 09-22-2024 End: 09-22-2024 Departed Referred Karon Corrales MD -[employer] Start: 09-22-2024 Registered Referred Karon casillas MD -[employer] Start: 09-22-2024 End: 09-22-2024 ambulatory Karon NOVAK Facility:[facility] Start: 09-18-2024 End: 09-18-[address] Monika Staley MD Work Phone: [facility] Start: 09-18-2024 End: 09-18-2024 Departed Referred Karon Corrales MD -[employer] Start: 09-18-2024 Registered Referred aKron casillas MD -[employer] Start: 09-18-2024 End: 09-18-2024 ambulatory Karon Corrales OLS Facility:[facility] Start: 09-15-2024 End: 09-15-[address] Monika Staley MD Work Phone: [facility] Work Phone: Start: 09-15-2024 End: 09-15-2024 Departed Referred Carlos Cavazos -[employer] Start: 09-15-2024 Registered Referred Carlos Cavazos - [employer] Start: 09-15-2024 End: 09-15-2024 ambulatory Carlos Cavazos OLS Facility:[facility] Start: 09-11-2024 ambulatory Karon vidales OLS Facility:[facility] Start: 09-11-2024 Registered Referred Karon casillas MD -[facility] [employer] Start: 09-08-2024 End: 09-08-[address] Monika Staley MD Work Phone: [facility] Work Phone: Start: 09-08-2024 End: 09-08-2024 Departed Referred Karon Corrales MD -[employer] Start: 09-08-2024 Registered Referred Karon casillas MD -[employer] Start: 09-08-2024 End: 09-08-2024 ambulatory Karon NOVAK Facility:[facility] Start: 09-04-2024 End: 09-04-2024 Departed Referred Carlos Maribelsaros -[employer] Start: 09-04-2024 Registered Referred Carlos Maribelsaros - [employer] Start: 09-04-2024 End: 09-04-2024 ambulatory Carlos NOVAK Facility:[facility] Start: 09-01-2024 End: 09-01-[address] Monika Staley MD Work Phone: [facility] Work Phone: Start: 09-01-2024 End: 09-01-2024 Departed Referred Carlos Lópezsaros -[employer] Start: 09-01-2024 Registered Referred Carlos Maribelsaros - [employer] Start: 09-01-2024 End: 09-01-2024 ambulatory Carlos NOVAK Facility:[facility] Start: 08-28-2024 End: 08-28-[address] Monika Staley MD Work Phone: [facility] Work Phone: Start: 08-28-2024 End: 08-28-2024 Departed Referred Carlos Lópezsaros -[employer] Start: 08-28-2024 Registered Referred Carlos Lópezsaros - [employer] Start: 08-28-2024 End: 08-28-2024 ambulatory Carlos NOVAK Facility:[facility] Start: 08-25-2024 End: 08-25-[address] Monika Staley MD Work Phone: [facility] Work Phone: Start: 08-25-2024 End: 08-25-2024 Departed Referred Karon Corrales MD -[employer] Start: 08-25-2024 Registered Referred Karon casillas MD -[employer] Start: 08-25-2024 End: 08-25-2024 ambulatory Carlaamber Corrales OLS Facility:[facility] Start: 08-21-2024 End: 08-21-[address] Monika Staley MD Work Phone: [facility] Work Phone: Start: 08-21-2024 End: 08-21-2024 Departed Referred Karon Corrales MD -[employer] Start: 08-21-2024 Registered Referred Karon casillas MD -[employer] Start: 08-21-2024 End: 08-21-2024 ambulatory Carlaamber NOVAK Facility:[facility] Start: 08-18-2024 End: 08-18-[address] Monika Staley MD Work Phone: [facility] Work Phone: Start: 08-18-2024 End: 08-18-2024 Departed Referred Karon Corrales MD -[employer] Start: 08-18-2024 Registered Referred Karon casillas MD -[facility] [employer] Start: 08-18-2024 End: 08-18-2024 ambulatory Carlaamber Corrales OLS Facility:[facility] Start: 08-14-2024 End: 08-14-[address] Monika Staley MD Work Phone: [facility] Work Phone: Start: 08-14-2024 End: 08-14-2024 Departed Referred Karon Corrales MD -[facility] [employer] Start: 08-14-2024 Registered Referred Karon casillas MD -[facility] [employer] Start: 08-14-2024 End: 08-14-2024 ambulatory Karon NOVAK Facility:[facility] Start: 08-11-2024 End: 08-11-2024 Departed Referred Karon Corrales MD -[employer] Start: 08-11-2024 Registered Referred Karon casillas MD -[employer] Start: 08-11-2024 End: 08-11-2024 ambulatory Karon NOVAK Facility:[facility] Start: 08-07-2024 End: 08-07-2024 Departed Referred Carlos Lópezsaviri -[employer] Start: 08-07-2024 Registered Referred Carlos Lópezsaviri - [employer] Start: 08-07-2024 End: 08-07-2024 ambulatory Carlos Cavazos OLS Facility:[facility] Start: 08-04-2024 End: 08-04-[address] Monika Staley MD Work Phone: [facility] Work Phone: Start: 08-04-2024 End: 08-04-2024 Departed Referred Carlos Lópezsaviri -[employer] Start: 08-04-2024 Registered Referred Carlos Lópezsaros - [employer] Start: 08-04-2024 End: 08-04-2024 ambulatory Carlos NOVAK Facility:[facility] Start: 07-31-2024 End: 07-31-[address] Monika Staley MD Work Phone: [facility] Work Phone: Start: 07-31-2024 End: 07-31-2024 Departed Referred Karon Corrales MD -[employer] Start: 07-31-2024 Registered Referred Karon casillas MD -[employer] Start: 07-31-2024 End: 07-31-2024 ambulatory Karon NOVAK Facility:[facility] Start: 07-28-2024 End: 07-28-[address] Monika Staley MD Work Phone: [facility] Work Phone: Start: 07-28-2024 End: 07-28-2024 Departed Referred Karon Corrales MD -[facility] [employer] Start: 07-28-2024 Registered Referred Karon casillas MD -[employer] Start: 07-28-2024 End: 07-28-2024 ambulatory Karon NOVAK Facility:[facility] Start: 07-25-2024 End: 07-25-[address] Monika Staley MD Work Phone: [facility] Work Phone: Start: 07-25-2024 End: 07-25-2024 Departed Referred Carlos Cavazos -[employer] Start: 07-25-2024 Registered Referred Carlos Reeder [employer] Start: 07-24-2024 End: 07-25-[address] Monika Staley MD Work Phone: [facility] Work Phone: Start: 07-24-2024 End: 07-24-2024 Departed Referred Karon Corrales MD -[employer] Start: 07-24-2024 Registered Referred Karon casillas MD -[employer] Start: 07-24-2024 End: 07-24-2024 ambulatory Karon NOVAK Facility:[facility] Start: 07-21-2024 End: 07-21-[address] Monika Staley MD Work Phone: [facility] Work Phone: Start: 07-21-2024 End: 07-21-2024 Departed Referred Karon Corrales MD -[facility] [employer] Start: 07-21-2024 Registered Referred Karon casillas MD -[employer] Start: 07-21-2024 End: 07-21-2024 ambulatory Karon NOVAK Facility:[facility] Start: 07-17-2024 End: 07-17-[address] Monika Staley MD Work Phone: [facility] Work Phone: Start: 07-17-2024 End: 07-17-2024 Departed Referred Karon Corrales MD -[employer] Start: 07-17-2024 Registered Referred Karon casillas MD -[employer] Start: 07-17-2024 End: 07-17-2024 ambulatory Karon NOVAK Facility:[facility] Start: 07-14-2024 End: 07-14-[address] Monika Stlaey MD Work Phone: [facility] Work Phone: Start: 07-14-2024 End: 07-14-2024 Departed Referred Carlos Cavazos -[employer] Start: 07-14-2024 Registered Referred Carlos Lópezsaros - [employer] Start: 07-14-2024 End: 07-14-2024 ambulatory Carlos Cavazos OLS Facility:[facility] Start: 07-11-2024 End: 07-11-[address] Monika Staley MD Work Phone: [facility] Work Phone: Start: 07-11-2024 End: 07-11-2024 Departed Referred Carlos Lópezsaros -[employer] Start: 07-11-2024 Registered Referred Carlos Lópezsaros - [employer] Start: 07-11-2024 End: 07-11-2024 ambulatory Carlos Cavazos OLS Facility:[facility] Start: 07-07-2024 End: 07-07-[address] Monika Staley MD Work Phone: [facility] Work Phone: Start: 07-07-2024 End: 07-07-2024 Departed Referred Karon Corrales MD -[employer] Start: 07-07-2024 [facility] Start: 07-07-2024 End: 07-07-2024 ambulatory Karon NOVAK Facility:[facility] Start: 07-03-2024 End: 07-03-[address] Monika Staley MD Work Phone: [facility] Work Phone: Start: 07-03-2024 End: 07-03-2024 Departed Referred Kvng Crisostomo MD -[employer] Start: 07-03-2024 Registered Referred Kvng Crisostomo MD -[employer] Start: 07-03-2024 End: 07-03-2024 ambulatory Kvng NOVAK Facility:[facility] Start: 06-30-2024 End: 06-30-[address] Monika Staley MD Work Phone: [facility] Work Phone: Start: 06-30-2024 End: 06-30-2024 Departed Referred Kvng Crisostomo MD -[employer] Start: 06-30-2024 Registered Referred Kvng Crisostomo MD -[employer] Start: 06-30-2024 End: 06-30-2024 ambulatory Kvng NOVAK Facility:[facility] Start: 06-26-2024 ambulatory Kvng NOVAK Fac ility:[facility] Start: 06-26-2024 Registered Referred Kvng Crisostomo MD -[employer] Start: 06-23-2024 End: 06-23-[address] Monika Staley MD Work Phone: [facility] Work Phone: Start: 06-23-2024 End: 06-23-2024 Departed Referred Carlos Acevedodsworth [employer] Start: 06-23-2024 Registered Referred Calros Cavazos - [employer] Start: 06-23-2024 End: 06-23-2024 ambulatory Carlos NOVAK Facility:[facility] Start: 06-19-2024 End: 06-19-[address] Monika Staley MD Work Phone: [facility] Work Phone: Start: 06-19-2024 End: 06-19-2024 Departed Referred Kvng Crisostomo MD -[employer] Start: 06-19-2024 Registered Referred Kvng Crisostomo MD -[employer] Start: 06-19-2024 End: 06-19-2024 ambulatory Monika Staley Facility:[facility] Start: 06-16-2024 End: 06-16-[address] Monika Staley MD Work Phone: [facility] Work Phone: Start: 06-16-2024 End: 06-16-2024 Departed Referred Kvng Crisostomo MD -[employer] Start: 06-16-2024 Registered Referred Kvng Crisostomo MD -[employer] Start: 06-16-2024 End: 06-16-2024 ambulatory Monika Staley Facility:[facility] Start: 06-12-2024 End: 06-12-[address] Monika Staley MD Work Phone: [facility] Work Phone: Start: 06-12-2024 End: 06-12-2024 Departed Referred Kvng Crisostomo MD -[employer] Start: 06-12-2024 Registered Referred Kvng Crisostomo MD -[employer] Start: 06-12-2024 End: 06-12-2024 ambulatory vKng NOVAK Facility:[facility] Start: 06-09-2024 End: 06-09-[address] Monika Staley MD Work Phone: [facility] Work Phone: Start: 06-09-2024 End: 06-09-2024 Departed Referred Carlos Cavazos -[employer] Start: 06-09-2024 Registered Referred Carlos Cavazos - [employer] Start: 06-09-2024 End: 06-09-2024 ambulatory Monika Staley Facility:[facility] Start: 06-05-2024 End: 06-05-[address] Monika Staley MD Work Phone: [facility] Work Phone: Start: 06-05-2024 End: 06-05-2024 Departed Referred Kvng Criosstomo MD -[employer] Start: 06-05-2024 End: 06-05-2024 ambulatory Kvng NOVAK Facility:[facility] Start: 06-02-2024 End: 06-02-[address] Monika Staley MD Work Phone: [facility] Work Phone: Start: 06-02-2024 End: 06-02-2024 Departed Referred Kvng Crisostomo MD -[facility] [employer] Start: 06-02-2024 Registered Referred Kvng Crisostomo MD -[facility] [employer] Start: 06-02-2024 End: 06-02-2024 ambulatory Kvng NOVAK Facility:[facility] Start: 05-29-2024 End: 05-29-[address] Monika Staley MD Work Phone: [facility] Work Phone: Start: 05-29-2024 End: 05-29-2024 Departed Referred Kvng Crisostomo MD -[facility] [employer] Start: 05-29-2024 Registered Referred Kvng Crisostomo MD -[facility] [employer] Start: 05-29-2024 End: 05-29-2024 ambulatory Kvng NOVAK Facility:[facility] Start: 05-26-2024 End: 05-26-[address] Monika Staley MD Work Phone: [facility] Work Phone: Start: 05-26-2024 End: 05-26-2024 Departed Referred Carlos Cavazos [facility] [employer] Start: 05-26-2024 Registered Referred Carlos Cavazos - [facility] [employer] Start: 05-26-2024 End: 05-26-2024 ambulatory Carlos NOVAK Facility:[facility] Start: 05-22-2024 ambulatory Kvng NOVAK Fac ility:[facility] Start: 05-22-2024 Registered Referred K[facility]ng [facility] Start: 05-20-2024 End: 05-20-2024 Departed Referred Kvng ReederDaisy [facility] [employer] Start: 05-19-2024 End: 05-20-2024 ambulatory Kvng NOVAK Facility:[facility] Start: 05-19-2024 Registered Referred [facility] Start: 05-15-2024 End: 05-15-2024 Departed Referred Kvng ReederDaisy [facility] [employer] Start: 05-15-2024 End: 05-15-2024 ambulatory Kvng NOVAK Facility:[facility] Start: 05-12-2024 End: 05-12-2024 Departed Referred Carlos [facility] Start: 05-12-2024 End: 05-12-2024 ambulatory Carlos NOVAK Facility[facility] Start: 05-09-2024 End: 05-09-2024 Departed Referred [facility]ng [facility] [employer] Start: 05-09-2024 End: 05-09-2024 ambulatory Kvng NOVAK Facility:[facility] Start: 05-08-2024 End: 05-08-2024 Departed Referred Babbaljeet Crisostomo MD -[facility] [employer] Start: 05-08-2024 End: 05-08-2024 ambulatory Elizabethmilton Andressa NOVAK Facility:[facility] Start: 05-05-2024 End: 05-05-2024 Departed Referred Kvng Crisostomo MD -[facility] [employer] Start: 05-05-2024 End: 05-05-2024 ambulatory Kvng NOVAK Facility:[facility] Start: 05-01-2024 End: 05-01-2024 Departed Referred Kvng Crisostomo MD -[facility] [employer] Start: 05-01-2024 End: 05-01-2024 ambulatory Kvng NOVAK Facility:[facility] Start: 04-28-2024 End: 04-28-2024 Departed Referred Carlos Cavazos -[facility] [employer] Start: 04-28-2024 End: 04-28-2024 ambulatory Carlos NOVAK Facility:[facility] Start: 04-24-2024 End: 04-24-2024 Departed Referred Kvng Crisostomo MD -[facility] [employer] Start: 04-24-2024 End: 04-24-2024 ambulatory Vicentesigifredokarolmilton Andressa NOVAK Facility:[facility] Start: 04-21-2024 End: 04-21-2024 Departed Referred Carlos Cavazos [facility] [employer] Start: 04-21-2024 End: 04-21-2024 ambulatory Carlos NOVAK Facility:[facility] Start: 04-17-2024 ambulatory Vicenterocio Andressa NOVAK Fac ility:[facility] Start: 04-17-2024 Registered Referred Kvng Crisostomo MD -[facility] [employer] Start: 04-14-2024 ambulatory Vicenteorcio Andressa NOVAK Fac ility:[facility] Start: 04-14-2024 Registered Referred Kvng Crisostomo MD -[facility] Start: 04-10-2024 End: 04-10-2024 Departed Referred Kvng Crisostomo MD -[facility] [employer] Start: 04-10-2024 End: 04-10-2024 ambulatory Kvng Jonesur OLS Facility:[facility] Start: 04-07-2024 End: 04-07-2024 Departed Referred Carlos Cavazos [facility] [employer] Start: 04-07-2024 End: 04-07-2024 ambulatory Carlos NOVAK Facility:[facility] Start: 04-04-2024 ambulatory Avisgerson Andressa NOVAK Fac ility:[facility] Start: 04-04-2024 Registered Referred Kvng Crisostomo MD -[facility] Start: 03-31-2024 End: 03-31-2024 Departed Referred Carlos Cavazos [facility] Start: 03-31-2024 End: 03-31-2024 ambulatory Carlos NOVAK Facility[facility] Start: 03-27-2024 End: 03-27-2024 [facility]arted Referred [facility] [employer] [facility] Start: 03-27-2024 End: 03-27-2024 [facility]ulatory [facility] Start: 03-24-2024 End: 03-24-2024 Departed Referred Kvng Crisostomo MD -[facility] Start: 03-24-2024 End: 03-24-2024 ambulatory Kvng NOVAK Facility:[facility] Start: 03-20-2024 End: 03-20-2024 [facility]arted Referred [facility] Start: 03-20-2024 End: 03-20-2024 ambulatory [facility] Start: 03-19-2024 End: 03-19-2024 Departed Referred Kvng Crisostomo MD -[facility] [employer] Start: 03-19-2024 End: 03-19-2024 ambulatory Kvng NOVAK Facility[facility] Start: 03-18-2024 End: 03-18-2024 [facility]arted [facility] Start: 03-17-2024 End: 03-17-2024 Departed Referred [facility] Start: 03-14-2024 End: 03-14-2024 Departed Referred Carlos Cavazos [facility] Start: 03-13-2024 End: 03-13-2024 Departed Referred [facility] Start: 09-13-2023 End: 09-13-2023 ambulatory [facility] Start: 09-13-2023 End: 09-13-2023 Office outpatient visit 25 minutes Rebecca Buck MD Work Phone: [facility] U[facility] Comment on above: Left flank pain (Christina magui Dx); BPH with urinary obstruction; History of kidney stones Start: 09-06-2023 End: 09-07-2023 ambulatory [facility] Start: 09-06-2023 End: 09-06-2023 Subsequent hospital visit by physician Rebecca Buck MD Work Phone: [facility] CT Imaging Comment on above: Left flank pain; Calculus of ureter Start: 08-31-2023 [facility] Start: 08-31-2023 Patient encounter [facility] Start: 08-21-2023 Telephone encounter Rebecca Buck MD Work Phone: [facility] Clinical Communication Comment on above: CT appt Boaz advice Start: 08-21-2023 Registered Referred [facility] Start: 08-13-2023 End: 08-13-2023 ambulatory [facility] Start: 08-13-2023 End: 08-13-2023 Office outpatient new 45 minutes Rebecca Buck MD Work Phone: [facility] Comment on above: Left flank pain (Christina magui Dx); Calculus of ureter; Disease of prostate; BPH with urinary obstruction Start: 08-03-2023 End: 08-03-2023 ambulatory [facility] Work Phone: Start: 08-03-2023 End: 08-03-2023 Departed Referred [facility] Start: 07-20-2023 End: 07-20-2023 ambulatory [facility] Work Phone: Start: 07-20-2023 End: 07-20-2023 Departed Referred [facility] Start: 07-20-2023 Registered Referred [facility] Start: 07-18-2023 End: 07-18-2023 ambulatory [facility] Work Phone: Start: 07-18-2023 End: 07-18-2023 [facility] Start: 07-18-2023 [facility] Start: 07-16-2023 End: 07-16-2023 ambulatory [facility] Work Phone: Start: 07-16-2023 End: 07-16-2023 [facility] Start: 07-16-2023 Registered Referred [facility] Start: 07-13-2023 End: 07-13-2023 ambulatory [facility] Work Phone: Start: 07-13-2023 End: 07-13-2023 [facility] Start: 07-13-2023 Registered Referred [facility] Start: 07-12-2023 End: 07-12-2023 ambulatory [facility] Work Phone: Start: 07-12-2023 End: 07-12-2023 [facility] Start: 07-12-2023 Registered Referred [facility] Start: 07-05-2023 End: 07-05-2023 ambulatory [facility] Work Phone: Start: 07-05-2023 End: 07-05-2023 [facility] Start: 07-05-2023 [facility] Start: 07-02-2023 [facility] Start: 06-28-2023 End: 06-28-2023 ambulatory [facility] Work Phone: Start: 06-28-2023 End: 06-28-2023 [facility] Start: 06-28-2023 [facility] Start: 06-25-2023 Telephone encounter eRbecca Buck MD Work Phone: [facility] Start: 06-25-2023 End: 06-25-2023 ambulatory [facility] Work Phone: Start: 06-25-2023 End: 06-25-2023 [facility] Start: 06-25-2023 [facility] Start: 06-21-2023 End: 06-21-2023 ambulatory [facility] Work Phone: Start: 06-21-2023 End: 06-21-2023 [facility] Start: 06-21-2023 [facility] Start: 06-13-2023 End: 06-13-2023 ambulatory [facility] Work Phone: Start: 06-13-2023 End: 06-13-2023 [facility] Start: 06-06-2023 End: 06-06-2023 ambulatory [facility] Work Phone: Start: 06-06-2023 End: 06-06-2023 [facility] Start: 06-06-2023 [facility] Start: 05-23-2023 End: 05-23-2023 ambulatory [facility] Work Phone: Start: 05-23-2023 End: 05-23-2023 [facility] Start: 05-09-2023 End: 05-09-2023 [facility] Start: 05-09-2023 [facility] Start: 04-23-2023 End: 04-23-2023 [facility] Start: 04-09-2023 End: 04-09-2023 ambulatory [facility] Work Phone: Start: 04-09-2023 End: 04-09-2023 [facility] Start: 04-09-2023 [facility] Start: 04-02-2023 End: 04-02-2023 ambulatory [facility] Work Phone: Start: 04-02-2023 End: 04-02-2023 [facility] Start: 04-02-2023 [facility] Start: 03-26-2023 End: 03-26-2023 ambulatory [facility] Work Phone: Start: 03-26-2023 End: 03-26-2023 [facility] Start: 03-26-2023 [facility] Start: 03-22-2023 End: 03-22-2023 ambulatory [facility] Work Phone: Start: 03-22-2023 End: 03-22-2023 [facility] Start: 03-22-2023 [facility] Start: 03-08-2023 End: 03-08-2023 ambulatory [facility] Work Phone: Start: 03-08-2023 End: 03-08-2023 Departed Referred [facility] [employer] [facility] Start: 02-22-2023 End: 02-22-2023 ambulatory [facility] Work Phone: Start: 02-22-2023 End: 02-22-2023 Departed Referred [facility] Start: 02-22-2023 Registered Referred [facility] [employer] [facility] Start: 02-15-2023 End: 02-15-2023 ambulatory [facility] Work Phone: Start: 02-15-2023 End: 02-15-2023 Departed Referred [facility] Start: 02-15-2023 Registered Referred [facility] [employer] Start: 02-08-2023 End: 02-08-2023 ambulatory [facility] Work Phone: Start: 02-08-2023 End: 02-08-2023 Departed Referred [facility] [employer] Start: 01-31-2023 End: 01-31-2023 ambulatory [facility] Work Phone: Start: 01-31-2023 End: 01-31-2023 Departed Referred [facility] Start: 01-31-2023 Registered Referred [facility] [employer] [facility] Start: 01-29-2023 End: 01-29-2023 Departed Referred [facility] Start: 01-29-2023 Registered Referred [facility] Start: 01-26-2023 End: 01-26-2023 Departed Referred [facility] Start: 01-26-2023 Registered Referred [facility] [employer] Start: 01-24-2023 End: 01-24-2023 Departed Referred [facility] Start: 01-24-2023 Registered Referred [facility] Start: 01-22-2023 End: 01-22-2023 ambulatory [facility] Work Phone: Start: 01-22-2023 End: 01-22-2023 [facility] Start: 01-22-2023 [facility] Start: 01-10-2023 End: 01-10-2023 ambulatory [facility] Work Phone: Start: 01-10-2023 End: 01-10-2023 [facility] Start: 01-10-2023 [facility] Start: 12-27-2022 End: 12-27-2022 ambulatory [facility] Work Phone: Start: 12-27-2022 End: 12-27-2022 [facility] Start: 12-27-2022 [facility] Start: 12-21-2022 End: 12-21-2022 ambulatory [facility] Work Phone: Start: 12-21-2022 End: 12-21-2022 [facility] Start: 12-21-2022 [facility] Start: 12-14-2022 End: 12-14-2022 ambulatory [facility] Work Phone: Start: 12-14-2022 End: 12-14-2022 [facility] Start: 12-14-2022 [facility] Start: 12-07-2022 End: 12-07-2022 ambulatory [facility] Work Phone: Start: 12-07-2022 End: 12-07-2022 [facility] Start: 12-07-2022 [facility] Start: 11-24-2022 End: 11-24-2022 ambulatory [facility] Work Phone: Start: 11-24-2022 End: 11-24-2022 Departed Referred [facility] [employer] Start: 11-24-2022 [facility] Start: 11-23-2022 End: 11-23-2022 ambulatory [facility] Work Phone: Start: 11-23-2022 End: 11-23-2022 [facility] Start: 11-23-2022 [facility] Start: 11-22-2022 End: 11-22-2022 ambulatory [facility] Work Phone: Start: 11-22-2022 End: 11-22-2022 [facility] Start: 11-22-2022 [facility] Start: 11-09-2022 End: 11-09-2022 ambulatory [facility] Work Phone: Start: 11-09-2022 End: 11-09-2022 [facility] Start: 11-09-2022 [facility] Start: 10-26-2022 End: 10-26-2022 Departed Referred [facility] Start: 10-26-2022 [facility] Start: 10-12-2022 End: 10-12-2022 ambulatory [facility] Work Phone: Start: 10-12-2022 End: 10-12-2022 Departed [facility] Start: 10-12-2022 [facility] Start: 10-05-2022 End: 10-05-2022 [facility] Start: 10-05-2022 Registered Referred [facility] Start: 09-28-2022 End: 09-28-2022 ambulatory [facility] Work Phone: Start: 09-28-2022 End: 09-28-2022 [facility] Start: 09-14-2022 End: 09-14-2022 [facility] Start: 08-31-2022 End: 08-31-2022 [facility] Start: 08-31-2022 [facility] Start: 08-23-2022 End: 08-23-2022 ambulatory [facility] Work Phone: Start: 08-23-2022 End: 08-23-2022 [facility] Start: 08-23-2022 [facility] Start: 08-17-2022 End: 08-17-2022 ambulatory [facility] Work Phone: Start: 08-17-2022 End: 08-17-2022 [facility] Start: 08-17-2022 Registered Referred [facility] [employer] Start: 08-14-2022 End: 08-14-2022 ambulatory [facility] Work Phone: Start: 08-14-2022 End: 08-14-2022 [facility] Start: 08-14-2022 [facility] Start: 07-31-2022 End: 07-31-2022 ambulatory [facility] Work Phone: Start: 07-31-2022 End: 07-31-2022 Departed Referred [facility] Start: 07-31-2022 Registered Referred [facility] [employer] Start: 07-24-2022 End: 07-24-2022 ambulatory [facility] Work Phone: Start: 07-24-2022 End: 07-24-2022 Departed Referred [facility] Start: 07-24-2022 Registered Referred [facility] Start: 07-20-2022 End: 07-20-2022 [facility] Start: 07-20-2022 [facility] Start: 07-17-2022 End: 07-17-2022 [facility] Start: 07-17-2022 Registered Referred [facility] [employer] Start: 07-11-2022 Registered Referred [facility] [employer] Start: 07-10-2022 End: 07-10-2022 ambulatory [facility] Work Phone: Start: 07-10-2022 End: 07-10-2022 Departed Referred [facility] [employer] Start: 07-10-2022 Registered Referred [facility] Start: 07-03-2022 End: 07-03-2022 ambulatory [facility] Work Phone: Start: 07-03-2022 End: 07-03-2022 [facility] Start: 07-03-2022 [facility] Start: 06-27-2022 End: 06-27-2022 ambulatory [facility] Work Phone: Start: 06-27-2022 End: 06-27-2022 [facility] Start: 06-27-2022 [facility] Start: 06-13-2022 End: 06-13-2022 ambulatory [facility] Work Phone: Start: 06-13-2022 End: 06-13-2022 [facility] Start: 06-13-2022 [facility] Start: 06-06-2022 End: 06-06-2022 ambulatory [facility] Work Phone: Start: 06-06-2022 End: 06-06-2022 [facility] Start: 06-06-2022 [facility] Start: 05-30-2022 End: 05-30-2022 ambulatory [facility] Work Phone: Start: 05-30-2022 End: 05-30-2022 [facility] Start: 05-30-2022 [facility] Start: 05-16-2022 End: 05-16-2022 ambulatory [facility] Work Phone: Start: 05-16-2022 End: 05-16-2022 [facility] Start: 05-16-2022 [facility] Start: 05-02-2022 End: 05-02-2022 ambulatory [facility] Work Phone: Start: 05-02-2022 End: 05-02-2022 [facility] Start: 05-02-2022 [facility] Start: 04-27-2022 End: 04-27-2022 ambulatory [facility] Work Phone: Start: 04-27-2022 End: 04-27-2022 Departed Referred [facility] [facility] Start: 04-27-2022 Registered Referred [facility] Start: 04-26-2022 End: 04-26-2022 ambulatory [facility] Work Phone: Start: 04-26-2022 End: 04-26-2022 Departed Referred [facility] Start: 04-11-2022 End: 04-11-2022 ambulatory [facility] Work Phone: Start: 04-11-2022 End: 04-11-2022 Departed Referred [facility] Start: 03-28-2022 End: 03-28-2022 Departed Ref[facility] Start: 03-28-2022 Registered Referred [facility] Start: 03-23-2022 End: 03-23-2022 Departed Referred [facility] Start: 03-23-2022 Registered Referred [facility] Start: 03-16-2022 End: 03-16-2022 ambulatory [facility] Work Phone: Start: 03-16-2022 End: 03-16-2022 Departed Ref[facility] Start: 03-16-2022 Registered Referred [facility] Start: 03-09-2022 End: 03-09-2022 ambulatory [facility] Work Phone: Start: 03-09-2022 End: 03-09-2022 [facility] Start: 03-09-2022 Registered Referred [facility] Start: 03-06-2022 End: 03-06-2022 ambulatory [facility] Work Phone: Start: 03-06-2022 End: 03-06-2022 [facility] Start: 03-06-2022 [facility] Start: 03-02-2022 End: 03-03-2022 Emergency department patient visit UNKNOWN PROVIDER [facility] Start: 03-02-2022 End: 03-02-2022 Emergency department patient visit Lanette Munguia DO Work Phone: [facility] Emergency Dept Comment on above: Fall, initial encoun ter (Primary Dx); Anticoagulated Start: 02-20-2022 End: 02-20-[address] [facility] Start: 02-20-2022 Registered Referred [facility] Start: 02-13-2022 End: 02-13-2022 ambulatory [facility] Work Phone: Start: 02-13-2022 End: 02-13-[address] [facility] Start: 02-13-2022 [facility] Start: 02-06-2022 End: 02-06-2022 ambulatory [facility] Work Phone: Start: 02-06-2022 End: 02-06-2022 [facility] Start: 02-06-2022 [facility] Start: 01-30-2022 End: 01-30-2022 [facility] Start: 01-30-2022 [facility] Start: 01-26-2022 End: 01-26-2022 ambulatory [facility] Work Phone: Start: 01-26-2022 End: 01-26-2022 [facility] Start: 01-26-2022 [facility] Start: 01-19-2022 End: 01-19-2022 ambulatory [facility] Work Phone: Start: 01-19-2022 End: 01-19-2022 [facility] Start: 01-19-2022 [facility] Start: 01-17-2022 ambulatory [facility] [facility] Start: 01-10-2022 [facility] Start: 01-10-2022 End: 01-10-2022 ambulatory [facility] Work Phone: Start: 01-10-2022 End: 01-10-2022 [facility] [employer] Start: 01-10-2022 [facility] Start: 01-06-2022 AUDIT Monika Elias rt Work Phone: [facility] Work Phone: Start: 01-05-2022 End: 01-05-2022 [facility] Start: 01-05-2022 [facility] [employer] Start: 12-30-2021 End: 12-30-2021 [facility] [employer] [facility] Start: 12-30-2021 [facility] Start: 12-28-2021 End: 12-28-2021 ambulatory [facility] Work Phone: Start: 12-28-2021 End: 12-28-2021 [facility] Start: 12-28-2021 [facility]istered [facility] [employer] Start: 12-26-2021 End: 12-26-2021 ambulatory [facility] Work Phone: Start: 12-26-2021 End: 12-26-2021 [facility] [employer] [facility] Start: 12-26-2021 Registered Referred [facility] Kathy [facility] Start: 12-22-2021 End: 12-22-2021 ambulatory [facility] Work Phone: Start: 12-22-2021 End: 12-22-[address] [facility] [employer] [facility] Start: 12-22-2021 Registered Referred [facility] [employer] [facility] Start: 12-22-2021 End: 12-22-2021 Emergency department [facility] Start: 12-21-2021 End: 12-22-2021 Emergency department patient visit Sharon Olivia MD Work Phone: [facility] Emergency Dept Comment on above: Heel ulceration, lef t, with unspecified severity (HCC) (Primary Dx) Start: 12-19-2021 End: 12-19-2021 ambulatory [facility] Work Phone: Start: 12-19-2021 End: 12-19-[address] [facility] [employer] [facility] Start: 12-19-2021 Registered Referred [facility] [employer] [facility] Start: 12-12-2021 End: 12-12-2021 ambulatory [facility] Work Phone: Start: 12-12-2021 End: 12-12-[address] [facility] [employer] [facility] Start: 12-12-2021 Registered Referred [facility] Kathy [facility] Start: 12-08-2021 End: 12-08-2021 ambulatory [facility] Work Phone: Start: 12-08-2021 End: 12-08-[address] [facility] Start: 12-08-2021 Registered Referred [facility] [employer] Start: 12-05-2021 End: 12-05-2021 ambulatory [facility] Work Phone: Start: 12-05-2021 End: 12-05-2021 [facility] Start: 12-05-2021 [facility]istered [facility] Start: 12-01-2021 End: 12-01-2021 [facility] Start: 12-01-2021 [facility]istered [facility] Start: 11-28-2021 End: 11-28-2021 [facility] Start: 11-28-2021 Registered [facility] [employer] Start: 11-25-2021 Rx Renewal Monika Elias rt Work Phone: [facility] Work Phone: Start: 11-23-2021 End: 11-23-2021 [facility] [employer] [facility] Start: 11-23-2021 [facility] Start: 11-22-2021 End: 11-22-2021 [facility] [employer] [facility] Start: 11-22-2021 Registered [facility] [employer] [facility] Start: 11-21-2021 End: 11-21-2021 [facility] Start: 11-15-2021 AUDIT Monika Elias rt Work Phone: [facility] Work Phone: Start: 11-14-2021 End: 11-14-2021 [facility] Start: 11-14-2021 Registered [facility] Start: 11-08-2021 End: 11-08-2021 [facility] [employer] [facility] Start: 11-08-2021 Registered [facility] Start: 11-04-2021 End: 11-04-[address] [facility] [employer] [facility] Start: 11-04-2021 Registered Referred [facility] [employer] [facility] Start: 10-31-2021 End: 11-01-2021 Emergency department patient visit UNKNOWN PROVIDER [facility] Start: 10-31-2021 End: 11-01-2021 Emergency department patient visit Dante Kim MD Work Phone: [facility] Emergency Dept Comment on above: Other fatigue (Prima ry Dx) Start: 10-31-2021 End: 10-31-[address] [facility] [employer] [facility] Start: 10-21-2021 End: 10-29-2021 Evaluation and management of inpatient UNKNOWN PROVIDER [facility] Start: 10-21-2021 End: 10-29-2021 Evaluation and management of inpatient Lisa Michelle DO Work Phone: [facility] Comment on above: Leg swelling (Primar y Dx); Acute deep vein thrombosis (DVT) of proximal vein of lower extremity, unspecified laterality (HCC) Start: 10-20-2021 End: 10-20-[address] [facility] [employer] [facility] Start: 10-17-2021 Telephone encounter Nicole davis MD Work Phone: [facility] Comment on above: Missed Appointment Start: 09-19-2021 End: 09-19-[address] [facility] [employer] [facility] Start: 11-02-2020 AUDIT Monika Elias rt Work Phone: [facility] Work Phone: Start: 10-27-2020 AUDIT Monkia Elias rt Work Phone: [facility] Work Phone: Start: 07-13-2020 Patient encounter procedure Monika Staley [facility] Work Phone: Start: 04-13-2020 Patient encounter procedure Wing Ritter [facility] Work Phone: Start: 04-07-2020 Patient encounter procedure Wing Ritter [facility] Work Phone: Start: 03-18-2020 Patient encounter procedure Wing Ritter [facility] Work Phone: Start: 01-20-2020 Patient encounter procedure Monika Staley MD NB-Kmtyfyavno-Twurt Work Phone: Start: 11-13-2019 End: 11-13-2019 Subsequent hospital visit by physician [facility] Comment on above: Non-pressure chronic ulcer left lower leg, 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] Start: 11-06-2019 Patient encounter procedure Monika Staley MD AY-Gjpsaqqmbo-Almpg Work Phone: Start: 06-18-2019 End: 06-18-2019 Subsequent [...] Start: 10-26-2021 Electroencephalogram w/rec awake&asleep Sarina Pineda [employer] MET[employer]IST [employer] Work Phone: Start: 10-26-2021 Ct head/brain w/o co ntrast material Sarina Pineda [employer]IAN - MET[employer]IST [employer] Work Phone: Start: 10-26-2021 Prothrombin time Andres Sheridan MD Work Phone: Start: 10-25-2021 Speech and language therapy regime Sarina Pineda [employer] Work Phone: Start: 10-25-2021 Prothrombin time Andres [...] Start: 10-23-2021 B2 GLYCOPROTEIN I IGG AB iWng Srivastava MD Work Phone: Start: 10-23-2021 Basic [...] count reticulo cyte automated Ellen Massey Niesha [employer]IAN [employer] MET[employer]IST [employer] Work Phone: Start: 10-21-2021 C-reactive protein Jax Scherer [employer] Work Phone: Start: 10-21-2021 Non-invas physiologi c std extremity art 2 level Shruthi Malik [employer]IAN [employer] Work Phone: Start: 10-21-2021 Radex calcaneus mini mum 2 views Shruthi Malik [employer]IAN - MET[employer]IST [employer] Work Phone: Start: 10-21-2021 Dup-scan xtr veins [...] Comment: Speci men Type: BLOOD SPECIMENOrdering Facility: [facility] Address: [address] [place] [address] Performed By: #### T SCR ####[facility] BLOOD BANKCLIA [id number] [address] Start: 08-04-2021 Antibody screen Comment on above: Order Comment: Speci men Type: BLOOD SPECIMENOrdering Facility: [facility] Address: [address] [place] [address] Performed By: #### T SCR ####[facility] BLOOD BANKCLIA [id number] [address] Start: 08-01-2021 Antibody screen Comment on above: Order Comment: Speci men Type: BLOOD SPECIMENOrdering Facility: [facility] Address: [facility] [place] [address] Performed By: #### T SCR ####[facility] BLOOD BANKCLIA [id number] [place] [address] [facility] Start: 06-07-2021 Antibody screen Comment on above: Order Comment: Speci men Type: BLOOD SPECIMEN Performed By: #### T SCR ####[facility] BLOOD BANKCLIA [id number] [place] [address] [facility] Start: 09-02-2020 Lipid 1996 panel - S bradly or Plasma Rebecca Buck MD Work Phone: Start: 04-07-2020 Echocardiography Wing Ritter Start: 11-13-2019 Radiologic examinati on tibia & fibula 2 views 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 (Kim) Debbie Work Phone: Hernia repair Monika melvin History of Cholecystotomy An yvette Staley History of Creation Of Subdural-Peritoneal CSF Shunt Monika Staley History of Interrupt ion Inferior Vena Cava Sterling Filter Placement Monika Staley Urine culture Plan of Treatment Date Care Activity Detail Author Start: 09-22-2026 DTaP/Tdap/Td vaccine (2 - Td or Tdap) DTaP/Tdap/Td vaccine (2 - Td or Tdap) [facility] Start: 09-22-2026 DTaP/Tdap/Td vaccine (2 - Td) DTaP/Tdap/Td vaccine (2 - Td) [facility] Work Phone: Start: 09-22-2026 DTaP/Tdap/Td Vaccine s (2 - Td or Tdap) DTaP/Tdap/Td Vaccines (2 - Td or Tdap) [facility] Start: 09-02-2025 Lipid panel Lipid Panel [facility] Start: 03-02-2025 Registered Referred Registered Refer red -Daisy [employer] [facility] Start: 02-26-2025 Registered Referred Registered Refer red -Daisy [employer] [facility] Start: 02-23-2025 Registered Referred Registered Refer red -Daisy [employer] [facility] Start: 02-19-2025 Registered Referred Registered Refer red -Daisy [employer] Start: 02-16-2025 Registered Referred Registered Refer red -Daisy [employer] [facility] Start: 08-22-2024 DIABETES SCREEN DIABETES SCREEN [facility] Start: 12-04-2023 Lipid panel Lipids [facility] Start: 12-04-2023 Lipid screen Lipid screen [facility] Work Phone: Start: 09-13-2023 End: 09-13-2023 Patient encounter procedure 09/13/2023 11:30 AM EDT Office Visit [facility] [address] [place] [phone] Rebecca Buck MD [address] [place], [place] [id number] [facility] Start: 08-31-2023 End: 08-31-2023 Patient encounter procedure 08/31/2023 9:30 AM EDT Appointment [facility] [address] [place] [phone] Rebecca Buck MD [address] [facility] [address] [place] [address] [facility] [address] [facility] Start: 08-13-2023 End: 08-12-2024 Basic metabolic 1998 panel - Serum or Plasma Basic metabolic panel Lab Routine Calculus of ureter Expected: 08/13/2023 (Approximate), Expires: 08/12/2024 [facility] [employer] Comment on above: Expected: 08/13/2023 (Approximate), Expires: 08/12/2024 Start: 08-13-2023 End: 08-12-2024 CT Abdomen WO contrast CT abdomen pelvis wo IV contrast Imaging Routine Left flank pain Calculus of ureter Expected: 08/13/2023, Expires: 08/12/2024 [facility] [employer] Comment on above: Expected: 08/13/2023 , Expires: 08/12/2024 Start: 08-13-2023 End: 02-12-2024 PSA, Monitoring ([facility]) PSA, Monitoring ([facility]) Lab Routine Disease of prostate Expected: 08/13/2023 (Approximate), Expires: 02/12/2024 [facility] Work Phone: Comment on above: Expected: 08/13/2023 (Approximate), Expires: 02/12/2024 Start: 08-13-2023 End: 08-13-2023 Patient encounter procedure 08/13/2023 10:00 AM EDT Office Visit [facility] [address] [place] [phone] Rebecca Buck MD [address] [place] [address] [facility] Start: 07-17-2023 Bacteria identified in Urine by Culture [facility] Start: 07-17-2023 [facility] Start: 07-16-2023 Measurement of substance [facility] Start: 05-07-2023 Medicare Advantage A nnual Wellness Visit Medicare Advantage Annual Wellness Visit [facility] Start: 03-02-2023 Creatinine measurement Creatinine Le carmela [facility] Start: 03-02-2023 Potassium measurement Potassium Leve l [facility] Start: 08-22-2022 Diabetes mellitus screening Diabetes Screening [facility] Start: 01-05-2022 Influenza vaccination [facility] Start: 12-23-2021 EPV, Provider: Wing Ritter, Status: Pen, Time: 9:30 AM EPV, Provider: Wnig Ritter, Status: Pen, Time: 9:30 AM GC-Ltjkerbrda-Pop ma Work Phone: Start: 12-05-2021 Influenza vaccination Flu vaccine (# 1) [facility] Start: 12-05-2021 Blood chemistry [facility] Work Phone: Start: 12-05-2021 Complete blood count [facility] Work Phone: Start: 12-05-2021 [facility] Work Phone: Start: 12-01-2021 [facility] Work Phone: Start: 08-05-2021 COVID-19 VACCINE (4 - Booster for Moderna series) COVID-19 VACCINE (4 - Booster for Moderna series) [facility] Start: 08-05-2021 COVID-19 Vaccine (4 - Booster for Pfizer series) COVID-19 Vaccine (4 - Booster for Pfizer series) [facility] Start: 06-01-2021 COVID-19 Vaccine (4 - Booster for Pfizer series) COVID-19 Vaccine (4 - Booster for Pfizer series) [facility] Start: 05-07-2021 ADVANCE DIRECTIVE DISCUSSION ADVANCE DIRECTIVE DISCUSSION [facility] Start: 08-11-2020 Screening for malign ant neoplasm of colon [facility] Start: 07-30-2020 Screening for malign ant neoplasm of colon [facility] Start: 01-20-2020 Echocardiography Echocardiogram MP-C ar[facility] [address] [place] Work Phone: Start: 01-06-2020 Influenza vaccination INFLUENZA (#1) [facility] Start: 12-04-2019 Annual Wellness Visi t (AWV) Annual Wellness Visit (AWV) [facility] Start: 12-04-2019 Creatinine monitoring Creatinine mon itoring [facility] Work Phone: Start: 12-04-2019 Hepatitis C screen Hepatitis C scree n [facility] Work Phone: Comment on above: Postponed from 05/06 (Patient Refused) Start: 12-04-2019 Potassium monitoring Potassium monit oring [facility] Work Phone: Start: 12-04-2019 Prostate specific an tigen measurement Prostate Specific Antigen (PSA) Screening or Monitoring [facility] Start: 12-04-2019 Shingles Vaccine (1 of 2) Day gles Vaccine (1 of 2) [facility] Work Phone: Comment on above: Postponed from 05/06 (Patient Refused) Start: 06-07-2019 Colon Cancer Screen FIT/FOBT [facility] Work Phone: Start: 08-14-2017 LIPID SCREEN LIPID SCREEN [facility] Start: 2017 ADVANCE DIRECTIVE DISCUSSION ADVANCE DIRECTIVE DISCUSSION [facility] Start: 2017 PNEUMOCOCCAL: 65+ (1 - PCV) PNEUMOCOCCAL: 65+ (1 - PCV) [facility] Start: 2017 PNEUMOVAX AGE 65 AND OVER WITH 5YR LOOKBACK (#1) PNEUMOVAX AGE 65 AND OVER WITH 5YR LOOKBACK (#1) [facility] Start: 04-14-2016 DIABETES SCREEN DIABETES SCREEN [facility] Start: 2012 RSV Immunization age d 60 or older (1 - 1-dose 60+ series) RSV Immunization aged 60 or older (1 - 1-dose 60+ series) [facility] Start: 2007 PROSTATE CANCER SCRE ENING DISCUSSION PROSTATE CANCER SCREENING DISCUSSION [facility] Start: 2002 Shingles vaccine (1 of 2) Day gles vaccine (1 of 2) [facility] Start: 2002 SHINGRIX VACCINE (1 of 2) DAY GRIX VACCINE (1 of 2) [facility] Start: 2002 Tuberculosis screening COLOREC MONIQUE CANCER SCREENING,SEE MODIFIER [facility] Start: 2002 Zoster Vaccines (1 of 2) Zoste r Vaccines (1 of 2) [facility] Start: 1997 COLOGUARD (FIT-DNA) COLOGUARD (FIT-D NA) [facility] Start: 1997 Colonoscopy COLONOSCOPY [facility] Start: 1997 COLORECTAL CANCER SCREENING COLORECTAL CANCER SCREENING [facility] Start: [address]GR[address] [facility] Start: 1997 FECAL OCCULT BLOOD FECAL OCCULT BLOO D [facility] Start: 1997 Screening for malign ant neoplasm of colon [facility] Start: 1997 SIGMOIDOSCOPY SIGMOIDOSCOPY [facility] Start: 1987 Diabetes screen Diabetes screen [facility] Start: 1971 Urine microalbumin profile DTAP,TDAP,TD (1 - Tdap) [facility] Start: 1970 ANNUAL PCP TEAM TABLE 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 VISIT ANNUAL PCP TEAM CHRONIC DISEASE VISIT [facility] Start: 1970 BP CONTROLLED (<130/80) BP CONTROLLE D (<130/80) [facility] Start: 1970 Diabetes mellitus screening Diabetes Screening [facility] Start: 1970 HEPATITIS C SCREENING HEPATITIS C JOBY VILLARREAL [facility] Start: 1970 Hepatitis C screening [facility] Start: 1964 Adult depression screening assessment DEPRESSION SCREENING [facility] Start: 1964 Depression Screen [facility] Start: 1962 Diabetic foot examination Diabetes: Foot Exam [facility] Start: 1962 Glaucoma screening Diabetes: R etinopathy Screening [facility] Start: 1962 Preventive dental service Diabetes: Dental Exam [facility] Start: 1952 Echocardiography Echocardiogram [facility] Start: 1952 Hemoglobin A1c measurement Diabetes: Hemoglobin A1C [facility] Start: 1952 Lipid panel Lipid Panel [facility] Start: 1952 Screening for malign ant neoplasm of colon [facility] Bacteria identified in Urine by Culture Urine Culture [facility] Work Phone: End: 03-02-2022 CBC W Auto Differential panel - Blood CBC with Auto Differential Lab Routine One Time for 1 Occurrences starting 03/02/2022 until 03/02/2022 [facility] Work Phone: Comment on above: One Time for 1 Occur rences starting 03/02/2022 until 03/02/2022 End: 03-02-2022 Comprehensive metabolic 2000 panel - Serum or Plasma Comprehensive Metabolic Panel Lab STAT One Time for 1 Occurrences starting 03/02/2022 until 03/02/2022 [employer] Work Phone: Comment on above: One Time for 1 Occur rences starting 03/02/2022 until 03/02/2022 End: 09-06-2023 CT Abdomen WO contrast [facility] [employer] [facility] Work Phone: Comment on above: Once for 1 Occurrenc es starting 09/06/2023 until 09/06/2023 End: 12-22-2021 Culture, Blood 2 Culture, Blood 2 Microbiology STAT One Time for 1 Occurrences starting 12/22/2021 until 12/22/2021 [facility] Work Phone: Comment on above: One Time for 1 Occur rences starting 12/22/2021 until 12/22/2021 End: 12-22-2021 Microscopic examination of blood, culture Culture, Blood Microbiology STAT One Time for 1 Occurrences starting 12/22/2021 until 12/22/2021 [facility] Work Phone: Comment on above: One Time for 1 Occur rences starting 12/22/2021 until 12/22/2021 Microscopic examinat ion of blood, culture Culture, Blood Microbiology STAT 12/22/2021 12:22 AM EDT [facility] Work Phone: Oxygen therapy [[facility] Data Set] Initiate Oxygen Therapy Protocol Respiratory Care Routine As Needed until discontinued starting 10/21/2021 [facility] Comment on above: As Needed until disc ontinued starting 10/21/2021 Protime-INR Protime-INR Lab Routine Daily until discontinued starting 10/23/2021, 7 completed [facility] Work Phone: Comment on above: Daily until disconti nued starting 10/23/2021, 7 completed End: 03-02-2022 Protime-INR Protime-INR Lab Routine One Time for 1 Occurrences starting 03/02/2022 until 03/02/2022 [facility] Work Phone: Comment on above: One Time for 1 Occur rences starting 03/02/2022 until 03/02/2022 Spirometry panel Incentive stef metry Respiratory Care Routine Daily until discontinued starting 10/21/2021 [facility] Work Phone: Comment on above: Daily until disconti nued starting 10/21/2021 End: 10-21-2021 Wound ostomy eval Wound ostomy eval Wound Ostomy Routine One Time for 1 Occurrences starting 10/21/2021 until 10/21/2021 [facility] Work Phone: Comment on above: One Time for 1 Occur rences starting 10/21/2021 until 10/21/2021 [facility] NEGATED: Highlighted row has been ruled out! Planned Goals not documented JK-Yvhxlltcfg-Qgl ma Work Phone: Immunizations Immunization Date Immunization Notes Care Provider Fa cili 03-04-2019 influenza, high dose seasonal, preservative-free Sarika Salas [facility] 12-03-2018 pneumococcal polysac charide vaccine, 23 valent [facility] Work Phone: 01-25-2018 influenza, high dose [...] Phone: Payers Date Payer Category Payer Unknown [id number] 03-19-2024 Self-pay 01-05-2022 Medicaid 01-05-2022 Medicare 01-05-2022 Medicare [id number] 10-05-2021 Medicaid [id number] 06-07-2021 Medicare UHC MEDICARE UHC DUAL COMPLETE HMO SNP [id number] 06/07/2021-Present [phone] [address] [place] [address] Medicare [id number] 06-07-2021 Medicare UHC MEDICARE [employer] DUAL COMPLETE [id number] 06/07/2021-Present [phone] [address] [place] [id number] 11-05-2019 Medicare UHC AARP MEDICAR E [facility] AARP MEDICARE HMO [id number] 11/05/2019-Present O [id number] 07-06-2015 Medicare UHC MEDICARE UHC MEDICARE COMPLETE xxxxxxxxx 2015-Present xxxxxxxxx [id number] 1952 Unknown [id number] 2.16.840.1.932266.3.579. 2.668 1952 Unknown [id number] 2.16.840.1.091655.3.579. 2.668 1952 Unknown [id number] 2.840.1.407183.3.579. 2.6605-06-1950 Unknown [id number] 2.16.840.1.576245.3.579. 2.8 1952 Unknown [id number] 2.840.1.228468.3.579. 2.[birth year]-06-1950 Unknown [id number] 2.840.1.401371.3.579. 2.668 1952 Unknown [id number] 2.840.1.159918.3.579. 2.668 Private Health Insurance Unknown Unknown [id number] 2.840.1.787181.3.579. 2.462 Unknown [id number] 2.840.1.367476.3.579. 2.462 Unknown [id number] 2.840.1.851491.3.579. 2.462 Unknown [id number] 2.840.1.575953.3.579. 2.462 Unknown [id number] 2.16840.1.283888.3.579. 2.462 Unknown [id number] 2.16.840.1.776984.3.579. 2.462 Unknown [id number] 2.16.840.1.955471.3.579. 2.462 Unknown [id number] 2.16.840.1.221885.3.579. 2.462 Unknown [id number] 2.840.1.756920.3.579. 2.462 Unknown [id number] 2.16.840.1.364549.3.579. 2.462 Unknown [id number] 2.16.840.1.557710.3.579. 2.462 Unknown [id number] 2.16.840.1.455601.3.579. 2.462 Unknown [id number] 2.16.840.1.570501.3.579. 2.462 Unknown [id number] 2.16.840.1.773313.3.579. 2.462 Unknown 16444076 2.16.840.1.118997.3.579. 2.462 Unknown 02259976 2.840.1.709044.3.579. 2.462 Unknown 86521268 2.840.1.198712.3.579. 2.462 Unknown 24417530 2..840.1.178702.3.579. 2.462 Unknown 01037604 2.840.1.457073.3.579. 2.462 Unknown 09770230 2.840.1.597254.3.579. 2.462 Unknown 85540045 2.16.840.1.930629.3.579. 2.462 Unknown 33819952 2.16.840.1.941829.3.579. 2.462 Unknown 96990395 2..840.1.051034.3.579. 2.462 Unknown 88226050 2.16.840.1.464956.3.579. 2.462 Unknown 13573165 2.16.840.1.841514.3.579. 2.462 Unknown 88878089 2.16.840.1.872129.3.579. 2.462 Unknown 15595420 2.16.840.1.118991.3.579. 2.462 Unknown 88653762 2.16840.1.209602.3.579. 2.462 Unknown 90061588 2.16.840.1.951940.3.579. 2.462 Unknown 46766021 2.16840.1.687957.3.579. 2.462 Unknown 16839505 2.16.840.1.101613.3.579. 2.462 Unknown 67429130 2.16840.1.443445.3.579. 2.462 Unknown 98828164 2.16840.1.374275.3.579. 2.462 Unknown 72230830 2.840.1.502520.3.579. 2.462 Unknown 33409531 2.840.1.796097.3.579. 2.462 Unknown 51762566 2.840.1.677940.3.579. 2.462 Unknown [id number] 2.840.1.929326.3.579. 2.462 Unknown 84206481 2.840.1.072540.3.579. 2.462 Unknown 27914273 2.840.1.087953.3.579. 2.462 Unknown 98160435 2.840.1.623875.3.579. 2.462 Unknown 19328542 2.840.1.882169.3.579. 2.462 Unknown 22668003 2.840.1.658904.3.579. 2.462 Unknown 53648066 2.840.1.739203.3.579. 2.462 Unknown 97104665 2.840.1.265431.3.579. 2.462 Unknown 89726782 2.840.1.087251.3.579. 2.462 Unknown [id number] 2.16840.1.676516.3.579. 2.462 Unknown [id number] 2.16.840.1.539807.3.579. 2.462 Unknown [id number] 2.16.840.1.974096.3.579. 2.462 Unknown [id number] 2.16.840.1.122642.3.579. 2.462 Unknown [id number] 2.16.840.1.105283.3.579. 2.462 Unknown [id number] 2.16.840.1.433605.3.579. 2.462 Unknown [id number] 2.16.840.1.214332.3.579. 2.462 Unknown [id number] 2.16.840.1.282962.3.579. 2.462 Unknown [id number] 2.16.840.1.923523.3.579. 2.462 Unknown [id number] 2.16.840.1.969331.3.579. 2.462 Unknown 57693486 2.16.840.1.083216.3.579. 2.462 Unknown 15313780 2.16.840.1.686532.3.579. 2.462 Unknown 76518016 2.16.840.1.765435.3.579. 2.462 Unknown 48446659 2.16.840.1.026514.3.579. 2.462 Unknown 15514402 2.16.840.1.026334.3.579. 2.462 Unknown 70093792 2.16.840.1.485693.3.579. 2.462 Unknown [id number] 2.16.840.1.148663.3.579. 2.462 Unknown [id number] 2.16.840.1.527923.3.579. 2.462 Unknown [id number] 2.16.840.1.504685.3.579. 2.462 Unknown [id number] 2.16.840.1.014767.3.579. 2.462 Unknown [id number] 2.16.840.1.082224.3.579. 2.462 Unknown 59132381 2.16.840.1.065386.3.579. 2.462 Unknown 42905713 2.16.840.1.272422.3.579. 2.462 Unknown 03155165 2.16.840.1.128374.3.579. 2.462 Unknown 79211860 2.16.840.1.776773.3.579. 2.462 Unknown [id number] 2.16.840.1.010803.3.579. 2.462 Unknown [id number] 2.16.840.1.091203.3.579. 2.462 Unknown [id number] 2.16.840.1.282266.3.579. 2.462 Unknown [id number] 2.16.840.1.314358.3.579. 2.462 Unknown [id number] 2.16.840.1.636712.3.579. 2.462 Unknown [id number] 2.16.840.1.252689.3.579. 2.462 Unknown 02045808 2.16.840.1.058170.3.579. 2.462 Unknown 48693197 2.16.840.1.909003.3.579. 2.462 Unknown 07560979 2.16.840.1.258549.3.579. 2.462 Unknown 81379250 2.16.840.1.170481.3.579. 2.462 Unknown 27719457 2.16.840.1.173362.3.579. 2.462 Unknown 67276448 2.16.840.1.503753.3.579. 2.462 Unknown 25566644 2.16.840.1.303474.3.579. 2.462 Unknown 29594586 2.16.840.1.782851.3.579. 2.462 Unknown 66417780 2.16.840.1.231114.3.579. 2.462 Unknown 34234804 2.16.840.1.029124.3.579. 2.462 Unknown 50954213 2.16.840.1.008168.3.579. 2.462 Unknown 00982022 2.16.840.1.737695.3.579. 2.462 Unknown 06349379 2.16.840.1.849246.3.579. 2.462 Unknown 56991221 2.16.840.1.451836.3.579. 2.462 Unknown 01150788 2.16.840.1.705211.3.579. 2.462 Unknown 11125595 2.16.840.1.461722.3.579. 2.462 Unknown 70685755 2.16.840.1.742681.3.579. 2.462 Unknown 44347632 2.16.840.1.138563.3.579. 2.462 Unknown 19492264 2.16.840.1.135308.3.579. 2.462 Unknown 38863115 2.16.840.1.485888.3.579. 2.462 Unknown 10880006 2.16.840.1.209184.3.579. 2.462 Unknown 03400418 2.16.840.1.975571.3.579. 2.462 Unknown 86424906 2.16.840.1.191933.3.579. 2.462 Unknown 11950184 2.16.840.1.370857.3.579. 2.462 Unknown 60377536 2.16.840.1.510713.3.579. 2.462 Unknown 93055944 2.16.840.1.979029.3.579. 2.462 Unknown 37968799 2.16.840.1.156412.3.579. 2.462 Unknown 72993604 2.16.840.1.664767.3.579. 2.462 Unknown 63980665 2.16.840.1.994032.3.579. 2.462 Unknown 45658512 2.16.840.1.103117.3.579. 2.462 Unknown 91874190 2.16.840.1.436921.3.579. 2.462 Unknown 94342862 2.16.840.1.572025.3.579. 2.462 Unknown 01042213 2.16.840.1.258341.3.579. 2.462 Unknown 08881685 2.16.840.1.440207.3.579. 2.462 Unknown 20100926 2.16.840.1.112665.3.579. 2.462 Unknown [id number] 2.16.840.1.134010.3.579. 2.462 Unknown [id number] 2.16.840.1.480068.3.579. 2.462 Unknown [id number] 2.16.840.1.896726.3.579. 2.462 Unknown [id number] 2.16.840.1.400619.3.579. 2.462 Social History Date Type Detail Facility Start: 05-23-2018 End: 05-19-2019 Tobacco smoking status IDIS Former smoker [facility] Work Phone: History of tobacco use Cigar Smoker [facility] Work Phone: Start: 05-19-2019 End: 08-13-2023 Cigarettes smoked current (pack per day) - Reported [facility] Work Phone: Start: 05-19-2019 End: 08-13-2023 Alcohol intake Current non-drinker of alcohol (finding) [facility] Work Phone: Start: 12-03-2018 History SDOH Physica l Activity DPW 7 [facility] Work Phone: Start: 12-03-2018 History SDOH Physica l Activity MPS 9 [employer] Work Phone: Start: 12-03-2018 End: 10-31-2021 History SDOH Stress 1 [facility] Work Phone: Start: 12-03-2018 History SDOH Financial 5 [facility] Work Phone: Start: 12-03-2018 History SDOH Transpo rt Med 2 [employer] [facility] Work Phone: Start: 1950 Sex Assigned At Not on file S [facility] Work Phone: Start: 08-13-2012 End: 11-13-2019 Tobacco smoking status NHIS Never smoker [facility] Start: 05-23-2018 End: 11-13-2019 Tobacco use and exposure Never used [facility] Start: 11-13-2019 History SDOH Alcohol Std Drinks 98 [facility] Start: 10-11-2021 End: 02-15-2022 Exposure to SARS-CoV-2 (event) Not sure [facility] Start: 1950 Sex Assigned At Male W [facility] History of tobacco use Current smoker [facility] Work Phone: History of tobacco use Cigarette Smoker S [facility] Work Phone: Start: 10-31-2021 End: 08-13-2023 Tobacco use panel [facility] Tobacco smoking stat us IDIS Unknown if ever smoked [facility] Work Phone: Start: 07-11-2024 End: 08-21-2024 Sex Male (finding) [facility] NEGATED: Highlighted row - - [facility] Work Phone: Medical Equipment Procedure Code Equipment Code Equipment Origin al Text Equipment Identifier Dates Kit Bactiseal Woodard maria guadalupe Silicone Barium Catheter Shunt Sterile - [id number] Start: 06-08-2021 Catheter Bactise al 14cm External Drainage Csf Sterile Latex Free - [id number] Start: 08-05-2021 Valve Certas Shannon nt Inline - [id number] Start: 06-08-2021 Cass snow Inline - [id number] Start: 08-05-2021 Valve Armando snow Inline - [id number] Start: 08-09-2021 Goals Date Patient Goal [...] confident he can reach it. Added to [facility] exercise information Functional Status Date Assessment Result Facility NEGATED: Highlighted row Functional performance Functional status health issues are not documented [facility] Work Phone: Mental Status Date Assessment Result Facility NEGATED: Highlighted row Cognitive function [Interpretation] Cognitive status health issues are not documented [facility] Work Phone: Clinical Notes [...] Hydrocephalus, adult (CMS/HCC) (HCC) Kidney stone Neuropathy YOUTH ASSOCIATE (ventriculoperitoneal) shunt status Past Surgical History: Procedure [...] 12:05 PM documented in this encounter [facility] 08-31-2023 Note S: Shanthi from [facility] spoke with [facility] nurse regarding voiding trial procedure. B: [...] Protocols used: Information Only Call - No [facility] Telephone encounter Note S: Shanthi from [facility] spoke with [facility] nurse regarding voiding trial procedure. B: [...] Protocols used: Information Only Call - No Uekuax-AMEKA-LO [facility] 08-31-2023 Miscellaneous Notes S: Shanthi from [facility] spoke with [facility] nurse regarding voiding trial procedure. B: Onset of symptoms/concern today. A: [facility] is calling to make sure that the [...] Protocols used: Information Only Call - No Wxlvcg-CBFIS-QL documented in this encounter [facility] 08-29-2023 Telephone encounter Note Lm on daughters vm to advise them to call the number for the consulting solution manager to get clarification, and to call back with further questions [facility] 08-29-2023 Miscellaneous Notes Lm on daughters vm to advise them to call the number for the consulting solution manager to get clarification, and to call back with further questions Yes, they will need to call the number given to them. Please advise Name of caller: Shanthi Contact phone number: [phone] Relationship to Patient: patient Provider: MD Quinn Practice: [facility] Chief Complaint/Reason for Call: Shanthi called [...] reach out to call Maury Avila at [facility] [phone] to get clarifications. TEA did reach back out to [facility] and advised and provider Maury's #. Please advise Best time of day caller can be reached: Any Patient advised that office/PCP has 24-48 business hours to return their call: N/A documented in this encounter [facility] 08-27-2023 Telephone encounter Note Yes, they will need to call the number given to them. [facility] 08-27-2023 Telephone encounter Note Please advise [facility] 08-21-2023 Telephone encounter Note Name of caller: Shanthi Contact phone number: [phone] Relationship to Patient: patient Provider: MD Quinn Practice: [facility] Chief Complaint/Reason for Call: Shanthi called in to see if Pt would need to come by cot for his CT appt due to Pt being Boaz. TEA did reach out to office and was advised to reach out to Central Scheduling. TEA did reach out to CS and was advised to let [facility] know that she would need to reach out to call Maury Avila at [facility] [phone] to get clarifications. [facility] did reach back out to [facility] and advised and provider Maury's #. Please advise Best time of day caller can be reached: Any Patient advised that office/PCP has 24-48 business hours to return their call: N/A [facility] [employer] 08-13-2023 History of Present illness Narrative Images [...] Hydrocephalus, adult (CMS/HCC) (HCC) Kidney stone Neuropathy YOUTH ASSOCIATE (ventriculoperitoneal) shunt status Past Surgical History: Past [...] 10:45 AM documented in this encounter [facility] 06-25-2023 Telephone encounter Note [facility] called in stating appt scheduled 07/10/23 Guy has to be made further out, pt being transported by cot. Changed appt to 08/13/23 per [facility] only avail time for transport, first avail with DR Buck at 10:00 AM. [facility] 06-25-2023 Miscellaneous Notes [facility] called in stating appt scheduled 07/10/23 Guy has to be made further out, pt being transported by cot. Changed appt to 08/13/23 per [facility] only avail time for transport, first avail with DR Buck at 10:00 AM. documented in this encounter [facility] 12-22-2021 Hospital Discharge instructions SANIA Lou - 12/22/2021 2:32 AM EDT Please take medication as prescribed Please follow up with your Physicians as instructed in this discharge paperwork Thank you for choosing [facility] I appreciate your patience Please return to the emergency department if your symptoms worsen, or new symptoms develop as discussed documented in this encounter [facility] Work Phone: 10-29-2021 Note Hospitalist [...] abnormality and previous indwelling tubing history of YOUTH ASSOCIATE shunt ? #?Bilateral lower extremity wounds-wound care [...] neurologist. Patient will be transferred to the correction and his Coumadin was continued, dosing instructions were given. Wound care was given for his lower extremity wounds. Consults: neurology, vascular surgery, gastroenterology Discharge Instructions: Diet: No diet orders on file Activity: as tolerated Disposition: Patient discharged in stable condition to correction . Greater than 30 minutes spent discharging [...] Your Medications These medications were sent to [facility] [address] [place] [address] [address] [facility] - P [phone] - F [phone] [address] [facility] [address] ? levETIRAcetam 750 MG tablet ? warfarin 6 MG tablet Recommended Follow-up: No follow-up provider specified. Complexity of Follow up: [] Moderate Complexity: follow up within 7-14 calendar days (58803) [x] Severe Complexity: follow up within 7 calendar days (63467) Follow up Testing, Pending results or Referrals [...] Increased fatigue or (more content not included)... [facility] 10-29-2021 Hospital Discharge instructions Fabi Subramanian [...] Contact Information Primary Emergency Contact: NelsonTriny Address: [address] [place] [address] [place] [address] [facility] Relation: Brother/Sister Secondary Emergency Contact: Melissa Sifuentes Mobile Relation: Child Preferred language: S[place]ome[place] Past Surgical History: Past Surgical History: Procedure Laterality Date BRAIN SURGERY CHOLECYSTECTOMY COLONOSCOPY HERNIA REPAIR Immunization History: Immunization History Administered Date(s) Administered Influenza Virus Vaccine 02/08/2015 Influenza, High Dose (Fluzone 65 yrs and older) 01/25/2018, 03/04/2019 Influenza, Quadv, IM, (6 mo and older Fluzone, Flulaval, Fluarix and 3 yrs and older Afluria) 02/24/2016, 02/14/2017 Pneumococcal Conjugate 13-valent (Eqcdfcn24) 09/22/2016 Pneumococcal Conjugate Vaccine 02/04/2013 Pneumococcal Polysaccharide (Oipacnnvj14) 12/03/2018 Tdap (Boostrix, Adacel) 09/22/2016 Active Problems: Patient Active Problem List Diagnosis Code Flank pain, acute R10.9 Night muscle spasms M62.838 Chronic fatigue R53.82 Hydrocephalus (HCC) G91.9 Neuropathy G62.9 Erectile dysfunction N52.9 Fluid retention in tissues R60.9 Hyperlipidemia E78.5 Morbidly obese (HCC) E66.01 Leg wound, left S81.802A DVT, lower extremity, recurrent, unspecified laterality ([facility]) I82.409 Moderate malnutrition ([facility]) E44.0 History of seizures Z87.898 Isolation/Infection: [...] Dependent Dressing Dependent Toileting Dependent Feeding Dependent Produce Shipper Dependent Med Delivery whole in pudding Wound [...] Q4H prn SOB Oxygen Therapy: {Therapy; copd oxygen:50909} Ventilator: { CC Vent List:[id number]} Rehab Therapies: {THERAPEUTIC INTERVENTION:2250026455} Weight Bearing Status/Restrictions: Weight Bearing - Patient was bedbound in hospital Other Medical Equipment (for information only, NOT a DME order): wheelchair, hospital bed, and Boaz Other Treatments: Patient's personal belongings (please select all that are sent with patient): {[facility] DME Belongings:[id number]} RN SIGNATURE: CASE MANAGEMENT/SOCIAL WORK SECTION Inpatient Status Date: Readmission Risk Assessment Score: Readmission Risk Risk of Unplanned Readmission: 11 Discharging to Facility/ Agency Name: Address: Phone: Fax: Dialysis Facility (if applicable) Name: Address: Dialysis Schedule: Phone: Fax: [employer] signature: {Esignature:[id number]} PHYSICIAN SECTION Prognosis: Fair Condition at Discharge: Stable Rehab Potential (if transferring to Rehab): Fair Recommended Labs or Other Treatments After Discharge: Coumadin based on INR target range 2-3, Coumadin 6 mg on 10/30 and 10/31, recheck INR 11/01 and notify physician, ideally should be on 6 mg alt with 7 mg daily, PT/OT, follow-up with neurologist in 1 month, continue [facility] Physician Certification: I certify the above information and transfer of Andrew Sifuentes is necessary for the continuing treatment of the diagnosis listed and that he requires Residential Facility for greater than 30 days. Update Admission H&P: No change in H&P PHYSICIAN SIGNATURE: documented in this encounter [facility] Work Phone: 10-29-2021 History of Present illness Narrative [facility] Anticoagulation Management Service ([facility]) Inpatient Warfarin Consult HPI: Andrew Sifuentes is a 71 y.o. 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 Past Medical History: Diagnosis Date ED (erectile dysfunction) Hemorrhoids Hydrocephalus, adult (HCC) Kidney stone Neuropathy YOUTH ASSOCIATE (ventriculoperitoneal) shunt status Patient is newly referred to the [facility] clinic for warfarin management. Pt was [...] PharmD IRVIN Consult Service is available daily [phone]. Please search for covering pharmacist name via [employer] or Groups --> Pharmacy --> Anti-Coagulation Consult Pharmacist (on 3rd page). If no response via [employer], please page [phone]. Patient seen and chart reviewed. Afebrile. Adequate oxygenation on room air. Baseline mentation. Exam stable X 5 systems. Hgb 11.0 WBC 10.0 K Platelets 344 K Creatinine 0.71 GFR > 90 cc/min. NSE 20.8 with hemolysis. PT 30.8 INR 3.1 Conversion to Warfarin has been completed. APS w/u pending. Discussed with patient's staff interpreter. Will continue to monitor. Total visit time > 35 minutes. Neurology Attending Progress Note SUBJECTIVE: No issues overnight. Care discussed with nursing staff/patient's medical team MRI brain reported nothing acute. Assessment and Plan: 71 yr M with PMH obstructive hydrocephalus s/p YOUTH ASSOCIATE shunt in 1987, needing multiple revisions and [...] normal limits and both old and new YOUTH ASSOCIATE shunt tubing noted. At present patient is awake, follows commands, was able to tell his name, and that he was in hospital but not oriented to time. Per documentation patient had NCSE in May 2021, was on Vimpat, but it was discontinued as there was no evidence of recurrent seizures in july 2021 by Neurology at [facility], per daughter patient was on Dilantin for 31 yrs. Per daughter patient had seizures in the past and also felt he had staring episodes 10/26/2021 morning. Per daughter patient has been essentially bed bound in ID since May 2021 but prior to that was independent Impressions: H/O hydrocephalus H/O seizure, H/O stroke Acute DVT H/O PE Plan: -MRI brain w/o contrast nothing acute -CT head done during this admission reported no hydrocephalus, ventricles within normal limits and both old and new YOUTH ASSOCIATE shunt tubing noted -EEG mild to moderate slow, no seizures reported -Labs reviewed -Hydrocephalus management per Neurosurgery. At present patient does not have hydrocephalus on CT head done this admission. No Neurosurgery services available as inpatient in [facility]. Patient can follow up with Neurosurgery as outpatient and if ends up needing inpatient neurosurgery requirement then may need to be transferred to [facility]. -No clear clinical signs of ventriculitis. Defer evaluation to primary medical team/ID as deemed necessary. -Discussed with daughter in detail on . She was concerned that patient has had h/o seizures, and he has been taken off seizure medication, per note documentation patient had NCSE in May 2021 when he was admitted to [facility]. Per daughter she would want [...] is no in house Neurology coverage at [facility] over the weekend, primary hospitalist team to contact wagon person Neurology at [facility] for any weekend neurological issues related to the patient and if need to discuss any neurological test results/findings. Other deal in house Neurology coverage will be available from Sunday at [facility] and please call wagon person Neurology back on Sunday if need further assistance. This note has been generated using [employer] dictation software. It may contain incorrect words, punctuation's and spellings that were not noted in the review of the note prior to signing. This note has been generated using [employer] dictation software. It may contain incorrect words, [...] eGFR >90.0 >60 mL/min EGFR IF NonAfrican Indonesian >90.0 >60 mL/min Calcium 9.1 8.4 - [...] AST 24 BILITOT 0.4 LABALBU 3.7 @BRIEFLAB([facility]) ABGs: )No results for input(s): PH, [...] Radiology ACCESSION EXAM DATE/TIME PROCEDURE ORDERING PROVIDER [id number] 10/21/2021 15:30 EDT CR Calcaneus 2+ Views [id number] -SHRUTHI MALIK Left CPT code 81467 Reason For Exam (CR Calcaneus 2+ Views [...] Date: 10/26/2021 [id number] Tomography ACCESSION EXAM DATE/TIME PROCEDURE ORDERING PROVIDER [id number] 10/26/2021 11:[address] Head or Brain w/o JUNIE PINEDA ALLISON Contrast CPT code 52652 Reason For Exam (CT Head or Brain w/o Contrast) hydrocephalus. thank you Report CLINICAL INFORMATION: Hydrocephalus. Shunt. 3 mm axial cuts through the head are obtained without IV contrast. The examination is compared to a previous study dated 06/29/2014. FINDINGS: Old YOUTH ASSOCIATE shunt tubing is noted bilaterally. The new [...] are clear. IMPRESSION: 1. Old and new YOUTH ASSOCIATE shunt tubing. 2. No hydrocephalus. 3. Atrophy [...] Imaging ACCESSION EXAM DATE/TIME PROCEDURE ORDERING PROVIDER [id number] 10/23/2021 11:08 EDT MRI Abdomen w/o Contrast SRIVASTAVAWING CPT code 74060 Reason For Exam (MRI Abdomen w/o Contrast) [...] Medicine ACCESSION EXAM DATE/TIME PROCEDURE ORDERING PROVIDER [id number] 10/21/2021 07:55 EDT NM Pulmonary Perfusion [id number] -MAY CASH w/ Vent Aerosol CPT code 35939 A9567 Reason For Exam (NM Pulmonary Perfusion [...] Brachial Indices Extremity Bilateral Result Date: 10/22/2021 [facility] --- Ankle Brachial Index Report Patient DO GurpreetB: 1950 Study 10/21/2021 Name: Andrew Gonzalez (71yrs) Date: Age: 71 Account: [id number] Gender: M Loc: 444W BP: Ordering Physician: Shruthi Malik Moisture Meter Operator: Rody Cross RDMS, RVT Interpreting Physician: Carina Call --- Location: [facility] --- Indications: Foot wounds. Originally ordered as a full PVR. Ordering ROLLWAY MAN had to modify the order to ABIs [...] supine position. Images were obtained using a [employer] vascular ultrasound machine. --- Arterial pressure indices: [...] EXTREMITY BILATERAL VENOUS DUPLEX Result Date: 10/21/2021 [facility] --- Lower Extremity Venous Duplex Report Patient DO GurpreetB: 1950 Study 10/21/2021 Name: Andrew Gonzalez (71yrs) Date: Age: 71 Account: [id number] Gender: M Loc: 444 BP: Ordering Physician: May Cash Moisture Meter Operator: Rody Cross RDMS, RVT Interpreting Physician: [...] supine position. Images were obtained using a [employer] vascular ultrasound machine. --- Venous flow and [...] Radiology ACCESSION EXAM DATE/TIME PROCEDURE ORDERING PROVIDER [id number] 10/21/2021 08:16 EDT CR Chest 1 View Frontal [id number] MAY BOGGS CPT code 19881 Reason For Exam (CR Chest 1 View [...] Date: 10/22/2021 [id number] Computed Tomography ACCESSION EXAM DATE/TIME PROCEDURE ORDERING PROVIDER [id number] 10/22/2021 13:[address] Abdomen/Pelvis (No SRIVASTAVA, WING PO, No IV) CPT code 03100 Reason For Exam (CT Abdomen/Pelvis (No PO, [...] Imaging ACCESSION EXAM DATE/TIME PROCEDURE ORDERING PROVIDER [id number] 10/27/2021 13:14 EDT MRI Brain w/o Contrast UNASSIGNED, UNASSIGNED CPT code 82672 Reason For Exam (MRI Brain w/o Contrast) stroke Patient has YOUTH ASSOCIATE shunt in place, please follow Radiology protocol [...] included. Hospitalist Progress Note 10/28/2021 11:37 AM [phone]: Please page me @ [phone] for patient care issues. [phone]: Please page personnel clerk for any issues@ night Subjective: Admit Date: [...] abnormality and previous indwelling tubing history of YOUTH ASSOCIATE shunt # Bilateral lower extremity wounds-wound care [...] Services This report was created using the [employer] Speaking voice-activated system. Despite prompt dictation and careful editorial review, there may be subtle contextual errors in this report, due to misrecognition of the spoken word. Speech Language Pathology Facility/Department: [facility] MED SURG Dysphagia Treatment Note NAME: [...] gloves were worn throughout this session. [facility] Anticoagulation Management Service ([facility]) Inpatient Warfarin Consult HPI: Andrew Sifuentes is a 71 y.o. 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 Past Medical History: Diagnosis Date ED (erectile dysfunction) Hemorrhoids Hydrocephalus, adult (HCC) Kidney stone Neuropathy YOUTH ASSOCIATE (ventriculoperitoneal) shunt status Patient is newly referred to the [facility] clinic for warfarin management. Pt was [...] interactions and adjust dose accordingly. 3. [facility] will manage while inpatient and sign off at discharge. Patient resides in a SNF. 4. Will provide warfarin education including [facility] warfarin booklet, if appropriate. Brionna Le, PharmD candidate Josie Gupta RPh, PharmD [facility] Consult Service is available daily [phone]. Please search for covering pharmacist name via [employer]Serve or Groups --> Pharmacy --> Anti-Coagulation Consult Pharmacist (on 3rd page). If no response via PerfectServe, please page [phone]. Follow up b/l foot wounds. No new [...] yr M with PMH obstructive hydrocephalus s/p YOUTH ASSOCIATE shunt in 1987, needing multiple revisions and [...] normal limits and both old and new YOUTH ASSOCIATE shunt tubing noted. At present patient is awake, follows commands, was able to tell his name, and that he was in hospital but not oriented to time. Per documentation patient had NCSE in May 2021, was on Vimpat, but it was discontinued as there was no evidence of recurrent seizures in july 2021 by Neurology at [facility], per daughter patient was on Dilantin for 31 yrs. Per daughter patient had seizures in the past and also felt he had staring episodes 10/26/2021 morning. Per daughter patient has been essentially bed bound in ID since May 2021 but prior to that was independent Impressions: H/O hydrocephalus H/O seizure, H/O stroke Acute DVT H/O PE Plan: -MRI brain w/o contrast. Per daughter she would like MRI brain done to evaluate for strokes -CT head done during this admission today reported no hydrocephalus, ventricles within normal limits and both old and new YOUTH ASSOCIATE shunt tubing noted -EEG mild to moderate slow, no seizures reported -Labs reviewed -Hydrocephalus management per Neurosurgery. At present patient does not have hydrocephalus on CT head done this admission. No Neurosurgery services available as inpatient in [facility]. Patient can follow up with Neurosurgery as outpatient and if ends up needing inpatient neurosurgery requirement then may need to be transferred to [facility]. -No clear clinical signs of ventriculitis. Defer evaluation to primary medical team/ID as deemed necessary. -Discussed with daughter in detail on . She was concerned that patient has had h/o seizures, and he has been taken off seizure medication, per note documentation patient had NCSE in May 2021 when he was admitted to [facility]. Per daughter she would want [...] interim. This note has been generated using [employer] dictation software. It may contain incorrect words, punctuation's and spellings that were not noted in the review of the note prior to signing. This note has been generated using [employer] dictation software. It may contain incorrect words, [...] AMYLASE, LIPASE in the last 72 hours.@BRIEFLAB([facility]) ABGs: )No results for input(s): PH, [...] Radiology ACCESSION EXAM DATE/TIME PROCEDURE ORDERING PROVIDER [id number] 10/21/2021 15:30 EDT CR Calcaneus 2+ Views [id number] -SHRUTHI MALIK Left CPT code 73374 Reason For Exam (CR Calcaneus 2+ Views [...] Tomography ACCESSION EXAM DATE/TIME PROCEDURE ORDERING PROVIDER [id number] 10/26/2021 11:[address] Head or Brain w/o EDWIN, ROLLWAY MAN, SARINA Contrast CPT code 67166 Reason For Exam (CT Head or Brain w/o Contrast) hydrocephalus. thank you Report CLINICAL INFORMATION: Hydrocephalus. Shunt. 3 mm axial cuts through the head are obtained without IV contrast. The examination is compared to a previous study dated 06/29/2014. FINDINGS: Old YOUTH ASSOCIATE shunt tubing is noted bilaterally. The new [...] are clear. IMPRESSION: 1. Old and new YOUTH ASSOCIATE shunt tubing. 2. No hydrocephalus. 3. Atrophy [...] Imaging ACCESSION EXAM DATE/TIME PROCEDURE ORDERING PROVIDER [id number] 10/23/2021 11:08 EDT MRI Abdomen w/o Contrast WING SRIVASTAVA CPT code 38375 Reason For Exam (MRI Abdomen w/o Contrast) [...] Medicine ACCESSION EXAM DATE/TIME PROCEDURE ORDERING PROVIDER [id number] 10/21/2021 07:55 EDT NM Pulmonary Perfusion [id number] MAY BOGGS w/ Vent Aerosol CPT code 32613 A9567 Reason For Exam (NM Pulmonary Perfusion [...] Brachial Indices Extremity Bilateral Result Date: 10/22/2021 [facility] --- Ankle Brachial Index Report Patient Gurpreet RADHA: 1950 Study 10/21/2021 Name: Andrew Gonzalez (71yrs) Date: Age: 71 Account: [id number] Gender: M Loc: 444W BP: Ordering Physician: Shruthi Malik Moisture Meter Operator: Rody Cross RDMS, RVT Interpreting Physician: Carina Call --- Location: [facility] --- Indications: Foot wounds. Originally ordered as a full PVR. Ordering ROLLWAY MAN had to modify the order to ABIs [...] supine position. Images were obtained using a [employer] vascular ultrasound machine. --- Arterial pressure indices: [...] EXTREMITY BILATERAL VENOUS DUPLEX Result Date: 10/21/2021 [facility] --- Lower Extremity Venous Duplex Report Patient DO GurpreetB: 1950 Study 10/21/2021 Name: Andrew Gonzalez (71yr) Date: Age: 71 Account: [id number] Gender: M Loc: 444 BP: Ordering Physician: May Cash Moisture Meter Operator: Rody Cross RDMS, RVT Interpreting Physician: Jakub, Carina --- Location: [facility] [...] supine position. Images were obtained using a [employer] vascular ultrasound machine. --- Venous flow and [...] Radiology ACCESSION EXAM DATE/TIME PROCEDURE ORDERING PROVIDER [id number] 10/21/2021 08:16 EDT CR Chest 1 View Frontal [id number] MAY BOGGS CPT code 78401 Reason For Exam (CR Chest 1 View [...] Tomography ACCESSION EXAM DATE/TIME PROCEDURE ORDERING PROVIDER [id number] 10/22/2021 13:[address] Abdomen/Pelvis (No SRIVASTAVA, WING PO, No IV) CPT code 71029 Reason For Exam (CT Abdomen/Pelvis (No PO, [...] 12:48 PM Consults Speech Language Pathology Facility/Department: [facility] MED SURG Dysphagia Treatment Note NAME: [...] reactivity and state change, indicative of a [id number] diffuse encephalopathy of nonspecific etiology. There are [...] Easy to chew diet/cut up. NEVILLE Jones M.A.CCC/PROFILE MILL OPERATOR TAPE CONTROL Time session ended: 1156 Total session minutes: 23 Images from the original note were not included. Hospitalist Progress Note 10/27/2021 10:40 AM [phone]: Please page me @ [phone] for patient care issues. [phone]: Please page personnel clerk for any issues@ night Subjective: Admit Date: [...] Services This report was created using the [employer] Speaking voice-activated system. Despite prompt dictation and careful editorial review, there may be subtle contextual errors in this report, due to misrecognition of the spoken word. [facility] Anticoagulation Management Service ([facility]) Inpatient Warfarin Consult HPI: Anderw Sifuentes is a 71 y.o. 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 Past Medical History: Diagnosis Date ED (erectile dysfunction) Hemorrhoids Hydrocephalus, adult (HCC) Kidney stone Neuropathy YOUTH ASSOCIATE (ventriculoperitoneal) shunt status Patient is newly referred to the [facility] clinic for warfarin management. Pt was [...] 4. Will provide warfarin education including [facility] warfarin booklet, if appropriate. Thank you for this consult Brionna Le, RigoD candidate Josie Gupta [facility], PharmD [facility] Consult Service is available daily [phone]. Please search for covering pharmacist name via [employer] or Groups --> Pharmacy --> Anti-Coagulation Consult Pharmacist (on 3rd page). If no response via Versaw[employer], please page [phone]. I cleaned under patient's finger nails with [...] status with Warfarin. Discussed with patient's staff interpreter. Will continue to monitor. Total visit time [...] if concern Hydrocephalus Chronic WOODARD's - Revised YOUTH ASSOCIATE shunt - daughter requested that pt have CT / MRI of brain and neurology be consulted, this was done. - "Hydrocephalus management per Neurosurgery. At present patient does not have hydrocephalus on CT head done this morning. No Neurosurgery services available as inpatient in [facility]. Patient can follow up with Neurosurgery as outpatient and if ends up needing inpatient neurosurgery requirement then may need to be transferred to [facility]. " Seizure history, unspecified - daughter [...] report from nursing. Continue wound care. [facility] Anticoagulation Management Service ([facility]) Inpatient Warfarin Consult HPI: Andrew Sifuentes is a 71 y.o. 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 Past Medical History: Diagnosis Date ED (erectile dysfunction) Hemorrhoids Hydrocephalus, adult (HCC) Kidney stone Neuropathy YOUTH ASSOCIATE (ventriculoperitoneal) shunt status Patient is newly referred to the [facility] clinic for warfarin management. Pt was referred by Ellen B Niesha, DIESEL MAINTENANCE ELECTRICIAN-METALLURGIST PROCESS. Pt is on warfarin for DVT and [...] PharmD IRVIN Consult Service is available daily [phone]. Please search for covering pharmacist name via [employer] or Groups --> Pharmacy --> Anti-Coagulation Consult Pharmacist (on 3rd page). If no response via [employer], please page [phone]. Moon daughter stated that any of patient's family can call and obtain an update on patient's status. Speech Language Pathology Facility/Department: [facility] MED SURG CLINICAL BEDSIDE SWALLOW EVALUATION [...] a small bore straw. Additionally discussed with PROFILE MILL OPERATOR TAPE CONTROL, agreeable to assess tomorrow. Recent Chest Xray/CT [...] and liquids between bites. Treatment Plan Requires PROFILE MILL OPERATOR TAPE CONTROL Intervention: Yes Duration of Treatment: 2 weeks [...] Education Response: Verbalizes understanding;Needs reinforcement Therapy Time PROFILE MILL OPERATOR TAPE CONTROL Individual Minutes Time In: 826 Time Out: 852 Minutes: 26 NEVILLE Jones 10/26/2021 9:20 AM Comprehensive Nutrition Assessment Type and Reason for Visit: Initial (DT referral for wounds) Nutrition Recommendations/Plan: 1. Recommend to continue: Easy to Chew diet with Thin Liquids as currently ordered and safe for patient to participate in. Discussed with: RN, ROLLWAY MAN, and PROFILE MILL OPERATOR TAPE CONTROL. PROFILE MILL OPERATOR TAPE CONTROL to assess tomorrow, best diet and liquid [...] Malnutrition Assessment: Malnutrition Status: Moderate malnutrition (10/25/21 5309) Context: Chronic Illness Findings of the 6 [...] & deltoids),Scapula (trapezius) Fluid Accumulation: Mild Extremities Chicle Grinder Feeder Strength: Not Performed Nutrition Assessment: 71 year [...] a small bore straw. Additionally discussed with PROFILE MILL OPERATOR TAPE CONTROL, agreeable to assess tomorrow. Nutrition Related Findings: [...] Anthropometric Measures: Height: 5' 7.01" (170.2 cm) [place] Body Weight (IBW): 148 lbs (67 kg) [...] On: Kcal/kg Weight Used for Energy Requirements: [place] (67.15 kg) Energy (kcal/day): 0273-0208 (27-32 kcal/kg IBW) --> increased need d/t wounds Weight Used for Protein Requirements: [place] (67.15 kg) Protein (g/day): 67-101 (1.0-1.5 g protein/kg IBW) Method Used for Fluid Requirements: Other (Comment) Fluid (ml/day): 1217-1089 mL daily or per MD Nutrition Diagnosis: [...] Plan of Care discussed with: Patient, RN, ROLLWAY MAN Edwin Goals: Goals: other (specify) Specify Other [...] to determine Puja Almanza RD, LD Contact: *[phone] Or Via Versaw[employer] Hematology/Oncology Attending Progress Note SUBJECTIVE: Patient seen [...] IRON, TIBC, FERRITIN No results found for: [id number] No results found for: FOLATE PT 15.6 INR 1.5 CA 19 - 9 is 17 Protein S 138% Protein C 186% ASSESSMENT AND PLAN GI input appreciated. Patient continues with subtherapeutic INR. GI input appreciated. Discussed with patient's staff interpreter. Will continue monitor. Total visit time > 35 minutes. [facility] Anticoagulation Management Service ([facility]) Inpatient Warfarin Consult HPI: Andrew Sifuentes is a 71 y.o. 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 Past Medical History: Diagnosis Date ED (erectile dysfunction) Hemorrhoids Hydrocephalus, adult (HCC) Kidney stone Neuropathy YOUTH ASSOCIATE (ventriculoperitoneal) shunt status Patient is newly referred to the [facility] clinic for warfarin management. Pt was [...] 4. Will provide warfarin education including [facility] warfarin booklet, if appropriate. Thank you for this consult Brionna Le, PharmD candidate Josie Gupta RPh, PharmD [facility] Consult Service is available daily [phone]. Please search for covering pharmacist name via [employer] or Groups --> Pharmacy --> Anti-Coagulation Consult Pharmacist (on 3rd page). If no response via [employer], please page [phone]. Progress Note 10/25/2021 9:36 AM Name: Andrew [...] if concern Hydrocephalus Chronic WOODARD's - Revised YOUTH ASSOCIATE shunt DC planning - 10/25/21: INR subtherapeutic, [...] if concern Hydrocephalus Chronic WOODARD's - Revised YOUTH ASSOCIATE shunt DC planning - Can be DC'd back to ECF once MRI done if no acute findings, MRI is done, defer to hem / onc on plan for that, awaiting chest PA with fluoro Patient seen and chart reviewed. Consult dictated. Will ask GI to assess concerning the etiology of liver lesions. Will continue to monitor. [facility] Anticoagulation Management Service ([facility]) Inpatient Warfarin Consult HPI: Andrew Sifuentes is a 71 y.o. 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 Past Medical History: Diagnosis Date ED (erectile dysfunction) Hemorrhoids Hydrocephalus, adult (HCC) Kidney stone Neuropathy YOUTH ASSOCIATE (ventriculoperitoneal) shunt status Patient is newly referred to the [facility] clinic for warfarin management. Pt was [...] interactions and adjust dose accordingly. 3. [facility] will manage while inpatient and sign off at discharge. Patient resides in a SNF. 4. Will provide warfarin education including [facility] warfarin booklet, if appropriate. Thank you for this consult Brionna Le, PharmD candidate Josie Gupta RPh, PharmD [facility] Consult Service is available daily [phone]. Please search for covering pharmacist name via [employer] or Groups --> Pharmacy --> Anti-Coagulation Consult Pharmacist (on 3rd page). If no response via PerfectServe, please page [phone]. Follow up foot wounds Patient is more alert this morning. Waffle boots are on Ulcer left heel ulcer right foot Foot drop PE, chart reviewed. Patient relates that he does not walk at home. c ontinue wound care. Images from the original note were not included. Hospitalist Progress Note 10/23/2021 1:47 PM [phone]: Please page me ([phone]) or perfect serve me for patient care issues. [phone]: Please page I[facility] night Hospitalist for any issues. Subjective: Admit Date: 10/21/2021 PCP: MONIKA STALEY MD Room#: 274/[id number] Admitting Synopsis: 71 y/o male presents from [...] if concern Hydrocephalus Chronic WOODARD's - Revised YOUTH ASSOCIATE shunt DC planning - Can be DC'd [...] Hemorrhoids Hydrocephalus, adult (HCC) Kidney stone Neuropathy YOUTH ASSOCIATE (ventriculoperitoneal) shunt status Medications: sodium chloride warfarin [...] of Hospitalist Medicine Inpatient Medical Services PAGER: [phone] Nutrition rescreen completed. Pt referred to RD for foot ulcers. Occupational Therapy Facility/Department: [facility] MED SURG Occupational Therapy Initial Assessment Name: Andrew Sifuentes : 1950 Date of Service: 10/23/2021 OT eval and treat orders received. Chart reviewed. Per notes pt from [facility], is Boaz lift at baseline, non-ambulatory, and requires assist for all ADLs. Will d/c OT orders. Elizabeth Gutierrez OT Physical Therapy Facility/Department: [address] Physical Therapy Initial Assessment Name: Andrew Sifuentes : 1950 Date of Service: 10/23/2021 PT eval and treat orders received. Chart reviewed. Per notes pt from [facility], is Boaz lift at baseline, non-ambulatory. Will d/c PT orders. Lloyd Silva PT [facility] Anticoagulation Management Service ([facility]) Inpatient Warfarin Consult HPI: Andrew Sifuentes is a 71 y.o. 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 Past Medical History: Diagnosis Date ED (erectile dysfunction) Hemorrhoids Hydrocephalus, adult (HCC) Kidney stone Neuropathy YOUTH ASSOCIATE (ventriculoperitoneal) shunt status Patient is newly referred to the [facility] clinic for warfarin management. Pt was [...] PharmD IRVIN Consult Service is available daily [phone]. Please search for covering pharmacist name via [employer] or Groups --> Pharmacy --> Anti-Coagulation Consult Pharmacist (on 3rd page). If no response via [employer], please page [phone]. Department of Podiatry Attending Consult Note Reason for Consult: Wound care Requesting Physician: MD Oksana CHIEF COMPLAINT: Foot wounds HISTORY OF PRESENT ILLNESS: The patient is a 71 y.o. male with b/l foot wounds. Patient is awake , but not answering questions. Past Medical History: Diagnosis Date ED (erectile dysfunction) Hemorrhoids Hydrocephalus, adult (HCC) Kidney stone Neuropathy YOUTH ASSOCIATE (ventriculoperitoneal) shunt status Past Surgical History: Procedure [...] OT consulted. Will follow . Thank you. [facility] Respiratory Care Department Progress Note As [...] included. Hospitalist Progress Note 10/22/2021 6:33 AM [phone]: Please page me ([phone]) or perfect serve me for patient care issues. [phone]: Please page [facility] night Hospitalist for any issues. Subjective: Admit Date: 10/21/2021 PCP: MONIKA STALEY MD Room#: 122/1461 Admitting Synopsis: 71 y/o male presents from [...] consider MRI if concern Hydrocephalus - Revised YOUTH ASSOCIATE shunt Interval History: No overnight issues. Denies [...] no cyanosis or edema and unable to printer repair technician BLE, this is old Musculoskeletal: Muscle loss [...] Hemorrhoids Hydrocephalus, adult (HCC) Kidney stone Neuropathy YOUTH ASSOCIATE (ventriculoperitoneal) shunt status Medications: sodium chloride baclofen [...] of Hospitalist Medicine Inpatient Medical Services PAGER: [phone] Images from the original note were not included. Hospitalist Progress Note 10/21/2021 5:31 PM [phone]: Please page me ([phone]) or perfect serve me for patient care issues. [phone]: Please page IMS night Hospitalist for any [...] Will need chronic OAC Hydrocephalus - Revised YOUTH ASSOCIATE shunt Interval History: No overnight issues. Denies [...] Hemorrhoids Hydrocephalus, adult (HCC) Kidney stone Neuropathy YOUTH ASSOCIATE (ventriculoperitoneal) shunt status Medications: sodium chloride baclofen [...] of Hospitalist Medicine Inpatient Medical Services PAGER: [phone] Family member Triny, sister to patient, called back to the hospital stating that she was returning a call from a provider. Her phone number is [phone] to speak with whomever was attempting to reach out to her. documented in this encounter [facility] Work Phone: 10-17-2021 Miscellaneous Notes Mr. Sifuentes missed his hospital stay follow-up appointment w. Dr. Lim today. Called to Reschedule. Could not get through. "Subscriber you have dialed not in service" - was the automated voice mail. Unable to leave VM. No other phone# available. Ramya Negro [employer] Floorperson [facility] documented in this encounter [facility] 08-19-2021 Note [facility] 08-19-2021 Note [facility] 08-18-2021 Note [facility] 08-18-2021 Note [facility] 08-17-2021 Note [facility] 08-17-2021 Note [facility] 08-16-2021 Note [facility] 08-16-2021 Note HNO ID: [id number] Author: Katt Kelsey DO Service: Hospital Medicine Author Type: Physician Type: Plan of Care Filed: 08/16/2021 12:26 PM Note Text: Spoke with RN that line is a PICC. Katt Kelsey DO 08/16/2021 12:26 PM [facility] 08-16-2021 Note [facility] 08-16-2021 Note [facility] 08-15-2021 Note [facility] 08-15-2021 Note [facility] 08-15-2021 Note [facility] 08-14-2021 Note [facility] 08-14-2021 Note [facility] 08-13-2021 Note [facility] 08-13-2021 Note [facility] 08-13-2021 Note [facility] 08-13-2021 Note HNO ID: [id number] Author: Ambar Note Service: ? Author Type: ? Type: Progress Notes Filed: 08/13/2021 3:10 AM Note Text: Epic Scheduled Downtime: 08/13/2021 1:08:47 AM to 08/13/2021 2:53:47 AM [facility] 08-12-2021 Note [facility] 08-12-2021 Note [facility] 08[facility]12-2021 Note [facility] 08-11-2021 Note [facility] 08-11-2021 Note [facility] 08-11-2021 Note [facility] 08-11-2021 Note [facility] 08-11-2021 Note [facility] 08-11-2021 Note [facility] 08-10-2021 Note [facility] 08-10-2021 Note [facility] 08-10-2021 Note [facility] 08-10-2021 Note [facility] 08-09-2021 Note HNO ID: [id number] Author: Shannon Brooks RN Service: ? Author Type: Registered Nurse Type: Nursing Progress Note Filed: 08/09/2021 7:33 PM Note Text: Report called to unit [facility] 08-09-2021 Note [facility] 08-09-2021 Note [facility] 08-09-2021 Note [facility] 08-08-2021 Note [facility] 08-08-2021 Note [facility] 08-08-2021 Note [facility] 08-07-2021 Note [facility] 08[facility]07-2021 Note [facility] 08-07-2021 Note [facility] 08-07-2021 Note [facility] 08-07-2021 Note [facility] 08-06-2021 Note [facility] 08-06-2021 Note [facility] 08-06-2021 Note [facility] 08-05-2021 Note [facility] 08-05-2021 Note [facility] 08-05-2021 Note [facility] 08-04-2021 Note [facility] 08-04-2021 Note [facility] 08-04-2021 Note [facility] 08-03-2021 Note [facility] 08-03-2021 Note [facility] 08[facility]03-2021 Note [facility] 08-02-2021 Note [facility] 08-02-2021 Note [facility] 08-02-2021 Note [facility] 08-01-2021 Note [facility] 08[facility]01-2021 Note [facility] 08-01-2021 Note [facility] 08[facility]01-2021 Note [facility] 07-31-2021 Note [facility] 07-31-2021 Note [facility] 07-30-2021 Note [facility] 07[facility]30-2021 Note [facility] 07-30-2021 Note [facility] 07-29-2021 Note [facility] 07[facility]29-2021 Note [facility] 07[facility]29-2021 Note [facility] 07-28-2021 Note [facility] 07-28-2021 Note [facility] 07-28-2021 Note [facility] 07-27-2021 Note [facility] 07-27-2021 Note [facility] 07[facility]27-2021 Note [facility] 07-26-2021 Note [facility] 07-26-2021 Note [facility] 07-26-2021 Note [facility] 07-26-2021 Note [facility] 07-26-2021 Note [facility] 07-25-2021 Note [facility] 07[facility]25-2021 Note [facility] 07-25-2021 Note [facility] 07-25-2021 Note [facility] 07-24-2021 Note [facility] 07-24-2021 Note [facility] 07-24-2021 Note [facility] 07-23-2021 Note [facility] 07-23-2021 Note [facility] 07-23-2021 Note [facility] 07[facility]23-2021 Note [facility] 07-23-2021 Note [facility] 07[facility]22-2021 Note [facility] 07[facility]22-2021 Note [facility] 07-22-2021 Note [facility] 07-21-2021 Note [facility] 07-21-2021 Note [facility] 07-21-2021 Note [facility] 07-21-2021 History of Past i [...] history of fever, elevated WBC, RP hematoma YOU[employer] ASSOCIATE shunt tip grew anaerobic gram positive cocci 06/08/2021 PLAN: [employer]OCIATE shunt tip sent to [facility] main, awaiting cx Continue Meropenem per I.D [...] - following CSF studies; 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 for MANUAL WINDER infection at this time - ID following- Continue antibiotics: Meropenem -CSF leak from EVD site, appreciate NSGY recs> stat repeat CTH on 06/07 d/t concern for CSF leak, cephalematoma, CTH unremarkable -Tolerating TF - SBT WTE - PICC line placed documented as of this encounter (statuses as of 10/17/2021) [facility]03-17-2022 [facility]03-16-2022 [facility]03-16-2022 [facility]03-16-2022 Note [facility]03-16-2022 [facility] 07-19-2021 [facility]03-15-2022 [facility]03-15-2022 [facility]03-14-2022 [facility]03-14-2022 [facility]03-13-2022 [facility]03-13-2022 [facility]03-12-2022 Note [facility]03-12-2022 [facility] 07-15-2021 [facility]03-11-2022 [facility]03-10-2022 [facility]03-10-2022 [facility]03-10-2022 [facility]03-09-2022 [facility]03-09-2022 [facility]03-09-2022 Note [facility]03-09-2022 [facility] 07-12-2021 [facility]03-08-2022 [facility]03-07-2022 [facility]03-07-2022 [facility]03-07-2022 [facility]03-07-2022 [facility]03-06-2022 [facility]03-06-2022 Note [facility]03-05-2022 [facility] 07-09-2021 [facility]03-05-2022 [facility]03-05-2022 [facility]03-05-2022 NoteHNO ID: [id number] Author: Lizette Valderrama RN Service: Nursing Author Type: Registered Nurse Type: Nursing Progress Note Filed: 07/09/2021 1:41 AM Note Text: Report called to [facility]03-04-2022 NoteHNO ID: [id number] Author: Lizette Valderrama RN Service: Nursing Author Type: Registered Nurse Type: Nursing Progress Note Filed: 07/08/2021 8:57 PM Note Text: [address] 2049 back to PACU [address] [place], [place] [id number] NoteHNO ID: [id number] Author: Sukhi Chery APRN.CNP Service: ? Author Type: Nurse Practitioner Type: Progress Notes Filed: 07/09/2021 6:46 PM Note Text: Connected Care Unit Progress Note Patient Name: Andrew Sifuentes Patient Facility: [facility] Admit Date 06/28/2021 Level of Care: Skilled [...] Dept Phone 07/21/2021 11:00 AM [facility] [phone] HPI: (Per Dr. Beltran) Andrew Sifuentes is being seen today for detention facility (SNF) admission AND management of weakness, tube feed, infected retroperitoneal infection and seizure. ? This is a 71 year old male who presents from [facility] with primary admitting diagnosis of Seizure, [...] CT brain concerning for hydrocephalus. Tip of YOU[employer] ASSOCIATE shunt was found to be in the [...] slow to respond. Ordered to transfer to [facility] ED for evaluation of neurological [...] changes in co (more content not included)... [facility]03-04-2022 [facility]03-04-2022 [facility]03-02-2022 NoteHNO ID: [id number] Author: Sukhi Chery APRN.CNP Service: ? Author Type: Nurse Practitioner Type: Progress Notes Filed: 07/09/2021 6:20 PM Note Text: Connected Care Unit Progress Note Patient Name: Andrew Sifuentes Patient Facility: [facility] Admit Date 06/28/2021 Level of Care: Skilled [...] Dept Phone 07/21/2021 11:00 AM [facility] [phone] HPI: (Per Dr. Beltran) Andrew Sifuentes is being seen today for detention facility (SNF) admission AND management of weakness, tube feed, infected retroperitoneal infection and seizure. ? This is a 71 year old male who presents from [facility] with primary admitting diagnosis of Seizure, [...] CT brain concerning for hydrocephalus. Tip of YOU[employer] ASSOCIATE shunt was found to be in the [...] Pharynx: Oropharynx is clear. (more content not included)...[facility]02-28-2022 NoteHNO ID: [id number] Author: Sukhi Chery APRN.METALLURGIST PROCESS Service: ? Author Type: Nurse Practitioner Type: Progress Notes Filed: 07/09/2021 6:07 PM Note Text: Connected Care Unit Progress Note Patient Name: Andrew Sifuentes Patient Facility: [facility] Admit Date 06/28/2021 Level of Care: Skilled [...] but nursing notes it was drawn by daycare worker as vancomycin was being infused; reordered trough - PICC Line Intact - No fevers or chills per patient or staff (R53.81) Debility - Certify therapies - Maintain high falls risk precautions - pt/staff verbalize understanding validated via teach back - Monitor safety awareness Appointments for Next 60 Days Date Time Provider Location Dept Phone 07/21/2021 11:00 AM [facility] [phone] HPI: (Per Dr. Beltran) Andrew Sifuentes is being seen today for detention facility (SNF) admission AND management of weakness, tube feed, infected retroperitoneal infection and seizure. ? This is a 71 year old male who presents from [facility] with primary admitting diagnosis of Seizure, [...] CT brain concerning for hydrocephalus. Tip of YOUTH ASSOCIATE shunt was found to be in the [...] to facility records. OBJECTIVE: Labs/diagnostics: 07/04/2021 Glucose=91 Qx=740 K=3.8 Pk=706 CO2=24 BUN=14 Creatinine=0.5 KRN=526 Ca=9.0 Protein,Total=6.7 Albumin=3.6 DdjBssh=542 AST=15 ALT=21 Bilirubin,Totall=0.5 WBC=10.7 RBC=4.04 Hgb=10.9 Hct=35.3 Hhaabphf=868 VancomycinTr (more content not included)...[facility]02-24-2022 NoteHNO ID: [id number] Author: Sukhi Chery APRN.KIM Service: ? Author Type: Nurse Practitioner Type: Progress Notes Filed: 07/09/2021 5:43 PM Note Text: Connected Care Unit Progress Note Patient Name: Andrew Sifuentes Patient Facility: [facility] Admit Date 06/28/2021 Level of Care: Skilled [...] Phone 07/21/2021 11:00 AM [facility] [phone] HPI: (Per Dr. Beltran) Andrew Sifuentes is being seen today for detention facility (SNF) admission AND management of weakness, tube feed, infected retroperitoneal infection and seizure. ? This is a 71 year old male who presents from [facility] with primary admitting diagnosis of Seizure, [...] CT brain concerning for hydrocephalus. Tip of YOU[employer] ASSOCIATE shunt was found to be in the [...] to facility records. OBJECTIVE: Labs/diagnostics: 07/01/2021 Glucose=83 Zi=890 K=4.1 Ru=105 CO2=27 BUN=22 Creatinine=0.6 MTB=559 Ca=8.7 WBC=10.8 RBC=3.40 Hgb=9.3 Hct=29.9 Qfooxckh=540 Vital Signs: BP 128/80 Pulse 77 Temp 36.7 ?C (98 ?F) Resp 20 Ht 182.9 cm (6') Wt 113 kg (249 lb 3.2 oz) SpO2 96% BMI 33.80 kg/m? Physical Exam: Physical Exam Vitals reviewed. Constitutional: General: He is not in acute distress. (more content not included)...[facility]02-22-2022 [facility]02-22-2022 [facility]02-21-2022 [facility]02-21-2022 Note [facility]02-20-2022 [facility] 06-26-2021 [facility]02-19-2022 [facility]02-19-2022 [facility]02-18-2022 [facility]02-18-2022 [facility]02-18-2022 [facility]02-17-2022 [facility]02-17-2022 Note [facility]02-17-2022 [facility] 06-22-2021 NoteHNO ID: [id number] Author: Xiomy England RN Service: Nursing Author Type: Registered Nurse Type: Nursing Progress Note Filed: 06/22/2021 7:22 PM Note Text: RT contacted as pt has wheezing auscultated and same auditory. For prn Treatment.[facility]02-16-2022 [facility]02-16-2022 [facility]02-16-2022 [facility]02-16-2022 [facility]02[facility]16-2022 [facility]02-15-2022 [facility]02-15-2022 Note [facility]02-15-2022 [facility] 06-21-2021 [facility]02-14-2022 [facility]02-14-2022 [facility]02-14-2022 [facility]02-14-2022 [facility]02-14-2022 [facility]02-13-2022 [facility]02-13-2022 Note [facility]02-13-2022 [facility] 06[facility]19-2021 [facility]02-13-2022 [facility]02-12-2022 [facility]02-12-2022 [facility]02-12-2022 [facility]02-12-2022 [facility]02-12-2022 [facility]02-12-2022 Note [facility]02-12-2022 NoteHNO ID: [id number] Author: Ambar Note Service: ? Author Type: ? Type: Progress Notes Filed: 06/18/2021 3:10 AM Note Text: Epic Scheduled Downtime: 06/18/2021 1:00:00 AM to 06/18/2021 2:27:00 [facility]02-11-2022 Note [facility]02-11-2022 [facility] 06-17-2021 [facility]02-11-2022 [facility]02-11-2022 [facility]02-10-2022 [facility]02-10-2022 [facility]02[facility]10-2022 [facility]02-10-2022 [facility]02-10-2022 Note [facility]02-10-2022 [facility] 06-15-2021 [facility]02-09-2022 NoteHNO ID: [id number] Author: Lamonte Kline DO Service: Neurology ICU Author Type: Resident Type: Plan of Care Filed: 06/15/2021 6:21 PM Note Text: Patient's daughter Melissa updated on plan of care and critical condition, all questions answered.[facility]02-09-2022 [facility]02-09-2022 [facility]02-09-2022 [facility]02-09-2022 [facility]02-09-2022 Note [facility]02-09-2022 [facility] 06-15-2021 [facility]02-08-2022 [facility]02-08-2022 [facility]02-08-2022 [facility]02-08-2022 [facility]02-07-2022 [facility]02[facility]07-2022 [facility]02-07-2022 Note [facility]02-07-2022 [facility] 06-12-20[facility]02-05-2022 [facility]02-05-2022 [facility]02-04-2022 [facility]02-04-2022 [facility]02-04-2022 Note [facility]02-04-2022 [facility] 06-09-2021 [facility]02-03-2022 [facility]02-03-2022 [facility]02-03-2022 [facility]02-02-2022 [facility]02-02-2022 NoteHNO ID: [id number] Author: Luis Diaz RN Service: ? Author Type: Registered Nurse Type: Nursing Progress Note Filed: 06/08/2021 9:23 AM Note Text: Patient off the floor to OR at this time.[facility]02-02-2022 [facility]02-02-2022 [facility] 06-08-2021 NoteHNO ID: [id number] Author: Eloise Samuel RN Service: ? Author Type: Registered Nurse Type: Nursing Progress Note Filed: 06/08/2021 12:46 AM Note Text: Dr. Brito notified of changes throughout shift. No new orders [facility] 06-07-2021 NoteHNO ID: [id number] Author: Eloise Samuel RN Service: ? Author Type: Registered Nurse Type: Nursing Progress Note Filed: 06/07/2021 8:01 PM Note Text: Neuro surg METALLURGIST PROCESS notified of downward deviation of pupils. No new orders at this time.[facility]02-01-2022 [facility]02-01-2022 [facility]02-01-2022 [facility]02-01-2022 [facility]01-31-2022 [facility]01-31-2022 [facility]01-31-2022 Note [facility]01-31-2022 [facility] 06-05-2021 [facility]01-30-2022 [facility]01-30-2022 [facility]01-29-2022 [facility]01-29-2022 NoteHNO ID: [id number] Author: Jermaine Miller PA-C Service: Neurosurgery Author Type: Physician Temporary Staff Accountant Type: Plan of Care Filed: 06/04/2021 1:59 PM Note Text: Discussed with Dr. Charles CT brain results. At this time, continue with EVD at 5 [facility]01-29-2022 [facility] 06-04-2021 [facility]01-28-2022 [facility]01-28-2022 NoteHNO ID: [id number] Author: Mauricio Frank DO Service: Neurology ICU Author Type: Physician Type: Plan of Care Filed: 06/03/2021 2:38 PM Note Text: I spoke with Melissa and updated her over the phone. Mauricio Frank, [facility]01-28-2022 [facility]01-28-2022 [facility]01-27-2022 [facility]01-27-2022 [facility]01-27-2022 Note [facility]01-26-2022 [facility] 06-01-2021 [facility]01-26-2022 [facility]01-26-2022 [facility]01-26-2022 [facility]01-25-2022 [facility]01-25-2022 [facility]01-25-2022 [facility]01-25-2022 Note [facility]01-25-2022 [facility] 05-31-2021 [facility] Diagnosis Leg swelling- Primary Swelling of limb Acute deep vein thrombosis (DVT) of proximal vein of lower extremity, unspecified laterality (HCC) DVT, lower extremity, recurrent, unspecified laterality (HCC) Moderate malnutrition (HCC) Malnutrition of moderate degree History of seizures Personal history of other disorders of nervous system and sense organs documented in this encounter [facility] Work Phone: Evaluation noteNo assessment information available [facility] Work Phone: Evaluation note* Diagnosis Other fatigue- Primary documented in this encounter [facility] Work Phone: Evaluation note* Diagnosis Heel ulceration, left, with unspecified severity (HCC)- Primary documented in this encounter [facility] Work Phone: Evaluation note* Diagnosis Fall, initial encounter- Primary Anticoagulated Encounter for long-term (current) use of anticoagulants documented in this encounter [facility] Work Phone: Evaluation note* Diagnosis Left flank pain- Primary Abdominal pain, unspecified site Calculus of ureter Disease of prostate Unspecified disorder of prostate BPH with urinary obstruction Hypertrophy of prostate with urinary obstruction and other lower urinary tract symptoms (LUTS) documented in this encounter [facility] SlickLoginEvaluation note* Diagnosis Left flank pain Abdominal pain, unspecified site Calculus of ureter documented in this encounter [facility] SlickLoginEvaluation note* Diagnosis Left flank pain- Primary Abdominal pain, unspecified site BPH with urinary obstruction Hypertrophy of prostate with urinary obstruction and other lower urinary tract symptoms (LUTS) History of kidney stones documented in this encounter [facility] HealthInstructions* Name Dates Details Instructions not documented [id number] Work Phone: Instructions* Name Dates Details Instructions not documented [id number] [place] Work Phone: Reason for referral (narrative)No reason for referral information availableGrant [facility] Work Phone: Advance Directives No Advanced Directives Records FoundDocuments on File Type Date Recorded Patient Housing Management Representative Expl anation Advance Directives and Living Will Power of Puppet Engineer Documents on File Type Date Recorded Patient Housing Management Representative Expl anation Advance Directive(s) 06/02/2021 2:45 PM [...] Relationship: 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 Adult Children (technical sales representative) Documents on File Type Date Recorded Patient Housing Management Representative Expl anation ACP-Advance Directive ACP-Power of Puppet Engineer Latest Code Status on File Code Status Date Activated Date Inactivated Comments Full Code 10/21/2021 4:09 AM Healthcare Agents on File Name Relationship Healthcare Agent Relationshi p Communication Melissakb Dengyer Child Primary Decision Maker deann Gurpreet Child Secondary Decision Maker Documents on File Type Date Recorded Patient Housing Management Representative Expl anation ACP-Advance Directive ACP-Power of Puppet Engineer ACP-Do Not Resuscitate 11/01/2021 7:03 AM Latest Code Status on File Code Status Date Activated Date Inactivated Comments Full Code 10/21/2021 4:09 AM 10/29/2021 7:25 PM Healthcare Agents on File Name Relationship Healthcare Agent Relationshi p Communication Melissakb Dengyer Child Primary Decision Maker deann Gurpreet Child Secondary Decision Maker Documents on File Type Date Recorded Patient Housing Management Representative Expl anation ACP-Do Not Resuscitate 11/03/2021 10:15 AM ACP-Do Not Resuscitate 11/01/2021 7:03 AM Healthcare Agents on File Name Relationship Healthcare Agent Relationshi p Communication Melissa Gurpreet Child Primary Decision Maker deann Gurpreet Child Secondary Decision Maker Documents on File Type Date Recorded Patient Housing Management Representative Expl anation ACP-Do Not Resuscitate 11/03/2021 10:15 [...] Documents on File Type Date Recorded Patient Housing Management Representative Expl anation DNR (Do Not Resuscitate) 10/31/2021 DNR (Do Not Resuscitate) 10/21/2021 Documents on File Type Date Recorded Patient Housing Management Representative Expl anation DNR (Do Not Resuscitate) 10/31/2021 [...] 01 4:00am [facility] May 05 4 5:00am [facility] May 08, 2024 [...] WORK June 30 5:00am [facility] February 27th, 202 5 5:00am [facility] July 07, 2024 [...] Chief Complaint Admit Date [facility] October 09, 2024 5:0 0am [facility] October 13, 2024 5:00a m [facility] October 16, 2024 5: 00am [facility] October 20, 2024 4: 00am [facility] October 23, 2024 5: 00am [facility] October 27, 2024 4: 00am [facility] October 30, 2024 6: 35am LABWORK November 03, 2024 5:00 am [facility] November 06, 2024 4:0 0am [facility] November 10, 2024 4:0 0am [facility] November 13, 2024 5: 00am [facility] November 17, 2024 5: 00am [facility] November 20, 2024 5: 00am [facility] November 24, 2024 5: 00am [facility] November 27, 2024 5: 00am LABWORK November 28, 2024 5:00 am LABWORK December 01, 2024 5:00 am [facility] December 02, 2024 4: 00am [facility] December 04, 2024 5: 00am [facility] December 08, 2024 5 :00am [facility]WORK December 11, 2024 6:0 0am [facility] December 15, 2024 4:00am [facility] December 18, 2024 5:00am [facility] December 22, 2024 4:00am LABWORK December 24, 2024 5: 00am [facility] December 25, 2024 5:00am [facility] December 26, 2024 5:00am LABWORK December 29, 2024 5: 00am [facility] January 01, 2025 5:00am [facility] January 06 5:00am LABWORK January 08, 2025 5:00am [facility] January 12 4:00am [facility] January 15 5:00am LABWORK January 19, 2025 5:00am [facility] January 26 4:00am Chief Complaint Admit Date LABWORK November 03, 2024 5:00 am [facility] November 06, 2024 4:0 0am [facility] November 10, 2024 4:0 0am [facility] November 13, 2024 5: 00am [facility] November 17, 2024 5: 00am [facility] November 20, 2024 5: 00am [facility] November 24, 2024 5: 00am [facility] November 27, 2024 5: 00am LABWORK November 28, 2024 5:00 am LABWORK December 01, 2024 5:00 am [facility] December 02, 2024 4: 00am [facility] December 04, 2024 5: 00am [facility] December 08, 2024 5 :00am LABWORK December 11, 2024 6:0 0am [facility] LAB WORK December 15, 2024 4:00am [facility] LAB WORK December 18, 2024 5:00am [facility] LAB WORK December 22, 2024 4:00am LABWORK December 24, 2024 5: 00am [facility] LAB WORK December 25, 2024 5:00am [facility] LAB WORK December 26, 2024 5:00am LABWORK December 29, 2024 5: 00am [facility] LAB WORK January 01, 2025 5:00am [facility] LAB WORK January 06 5:00am LABWORK January 08, 2025 5:00am [facility] LAB WORK January 12 4:00am [facility] LAB WORK January 15 5:00am LABWORK January 19, 2025 5:00am [facility] LAB WORK January 22 5:00am [facility] LAB WORK January 26 4:00am [facility] LAB WORK January 29 7:30am [facility] LAB WORK February 02 4:00am [facility] LAB WORK February 05, 2025 5:00am [facility] LAB WORK February 16, 2025 4:00am Reason for Referral Specialty Diagnoses / Procedures Referred By Aki kumari Referred To Contact Urology Diagnoses Other fatigue Lanette Munguia DO [address] [place] [address] [facility] [address] [place] [id number] Referral ID Status Reason Start Date Expiration Date V isits Requested Visits Authorized [id number] Open Specialty Services Required 11/01/2021 11/01/2022 1 1 Scheduling Instructions [facility] [place] [address] Specialty Diagnoses / Procedures Referred By Aki kumari Referred To Contact IP Unit Diagnoses Heel ulceration, left, with unspecified severity (HCC) Henry Hidalgo PA [address] [place] [address] [facility] [address] [place] [address] Referral ID Status Reason Start Date Expiration Date V isits Requested Visits Authorized [id number] Open Specialty Services Required 12/22/2021 12/22/2022 1 1 Scheduling Instructions [facility] [address] [place] [address] Comments Please use the parking lot located on [email or web address] or [email or web address]. There are handicap parking spots located in a small lot beside the wound care entrance off of [address]. Please be advised there is a small incline from those handicap spots to our main door. Bring photo ID and insurance card to photocopy. Wear loose fitting clothing (to easily access wound). Bring list of medications (or can be sent by office). Check in at Registration for your first visit. Please call us directly with any questions [phone]. We look forward to helping you heal. Specialty Diagnoses / Procedures Referred By Contdesiree t Referred To Contact Radiology Diagnoses Left flank pain Calculus of ureter Procedures CT abdomen pelvis wo IV contrast Rebecca Buck MD [address] [place] [address] Referral ID Status Reason Start Date Expiration Date V isits Requested Visits Authorized [id number] Pending Review 08/13/2023 08/12/2024 1 1 Referral ID Status Reason Start Date Expiration Date Visits Re quested Visits Authorized [id number] Closed 08/17/2023 09/16/2023 1 1 Additional Source Comments Source Comments (unrecognize d section and content) In the event this informatio n is protected by the Federal Confidentiality of Alcohol and Drug Abuse Patient Records regulations: The Federal rules restrict any use of the information to criminally investigate or prosecute any alcohol or drug abuse patient.[facility] the event this information is protected by the Federal Confidentiality of Alcohol and Drug Abuse Patient Records regulations: The Federal rules restrict any use of the information to criminally investigate or prosecute any alcohol or drug abuse patient.[facility] (unrecognized sect ion and content) No Status Records FoundNo Status Records FoundNo Status Records FoundNo Status Records FoundNo Status Records FoundNo Status Records FoundNo Status Records FoundNo Status Records FoundNo Status Records FoundNo Status Records Found INFORMATION SOURCE (unrecogn ized section and content) DATE CREATED AUTHOR 05/20/2021 [facility] DATE CREATED AUTHOR AUTHOR'S ORGANIZ ATION 06/07/2021 [facility] DATE CREATED AUTHOR AUTHOR'S ORGANIZ ATION 08/02/2021 [facility] DATE CREATED AUTHOR AUTHOR'S ORGANIZ ATION 12/09/2021 [facility] DATE CREATED AUTHOR AUTHOR'S ORGANIZ ATION 12/29/2021 [facility] DATE CREATED AUTHOR AUTHOR'S ORGANIZ ATION 02/04/2022 [facility] DATE CREATED AUTHOR AUTHOR'S ORGANIZ ATION 03/03/2022 [facility] DATE CREATED AUTHOR AUTHOR'S ORGANIZ ATION 09/15/2023 [facility] DATE CREATED AUTHOR AUTHOR'S ORGANIZ ATION 03/18/2025 [facility] Reason for Visit (unrecogniz ed section and content) Reason Comments Missed Appointment Reason Comments Leg Swelling Blood clots Reason Comments Altered Mental Status Pt presents to ED via [facility] for complaint listed. Pt is from [facility]. Pt's LKW was 1000 hours today. Per EMS, pt had a - [place]. Pt denies CP, SOB, and N/V. Pt seems slow to respond, slightly confused at this time. Reason Comments Osteomyelitis Patient from [facility] did xrays on left lower leg and [...] Buck MD [address] [place] [address] Referral ID Status Reason Start Date Expiration Date Visits Re quested Visits Authorized [id number] Closed 08/17/2023 09/16/2023 1 1 Reason Comments [...] July 28, 2024 End: July 28, 2024 Karno NOVAK MD Attending [...] Care Provider Active Start: October 02, 2024 Kraon NOVAK MD Attending Provider Active Start: October [...] Care Provider Active Start: July 31, 2024 Kaorn NOVAK MD Attending Provider Active [...] Status Dates Carlos NOVAK Attending Provider Active [employer] Relationship Specialty Start Date End Date Mateus Burris [address] [place] [address] PCP - General Family Practice 11/12/19 [employer] Relationship Specialty [place] [address] [place] [address] PCP - General Family Medicine 09/09/20 [employer] Relationship Specialty [place] [address] [place] [address] PCP - General Family Medicine 09/09/20 [employer] Relationship Specialty [place] [address] [place] [address] PCP - General Family Medicine 09/09/20 [employer] Relationship Specialty Start Date End Date Carlos Cavazos MD [address] [place] [address] PCP - General Internal Medicine 02/20/22 Team [...] Monika Staley MD Primary Care Provider Active [employer] Relationship Specialty Start Date End Date Carlos Cavazos [address] [place] [phone] PCP - General 12/21/21 Rebecca Buck MD [address] [place] [address] Surgeon Urology 06/25/23 Team Status: Inactive Member [...] NOVAK Attending Provider, Referring Provi lupillo Active [employer] Relationship Specialty Start Date End Date Carlos Cavazos [address] [place] [phone] PCP - General 12/21/21 Rebecca Buck MD [address] [address] Surgeon Urology 06/25/23 [employer] Relationship Specialty Start Date End Date Carlos Cavazos [address] [place] [phone] PCP - General 12/21/21 Rebecca Buck MD [address] [address] Surgeon Urology 06/25/23 [employer] Relationship Specialty Start Date End Date Carlos Cavazos [address] [place] [phone] PCP - General 12/21/21 Rebecca Buck MD [address] [address] Surgeon Urology 06/25/23 [employer] Relationship Specialty Start Date End Date Carlos Cavazos [address] [place] [phone] PCP - General 12/21/21 Rebecca Buck MD [address] [address] Surgeon Urology 06/25/23 [employer] Relationship Specialty Start Date End Date Carlos Cavazos [address] [place] [phone] PCP - General 12/21/21 Rebecca Buck MD [address] [address] Surgeon Urology 06/25/23 [employer] Relationship Specialty Start Date End Date Carlos Cavazos [address] [place] [phone] PCP - General 12/21/21 Rebecca Buck MD [address] [address] Surgeon Urology 06/25/23 Team Status: Inactive Member Role Status Dates Dr. Monika Staley MD Primary Care Provider Active Start: March 13, 2024 End: March 13, 2024 [facility] Attending Provider Active Start: March 13, [...] March 17, 2024 End: March 17, 2024 [facility] Attending Provider Active Start: March 17, 2024 End: March 17, 2024 Team Status: Inactive Member Role Status Dates Dr. Monika Staley MD Primary Care Provider Active Start: March 18, 2024 End: March 18, 2024 [facility] Attending Provider Active Start: March 18, [...] March 20, 2024 End: March 20, 2024 [facility] Attending Provider Active Start: March 20, [...] March 27, 2024 End: March 27, 2024 [facility] Attending Provider Active Start: March 27, [...] Care Provider Active Start: July 07, 2024 [facility] Attending Provider Active Start: July 07, [...] Oral, ONCE Warfarin, 1 dose, On [facility] 10/29/21 at 1800, Indication of Use: [...] BE BASED ON THE PRIMARY CLINICAL RECORDS. [facility] [employer] [facility]. provides no warranty or guarantee of the accuracy or completeness of information in this document.
[2025-04-21 09:57] LABS: Prothrombin Time (Protime)PT. 33.0 SECONDS (11.7-14.9)
== END ==
LOC: OLS.SANC 04:00
PROVIDERS: PCP General Practice
DX: Z79.01 Long term (current) use of anticoagulants (principal)
CPT/HCPCS: 36415; 85610

== ENCOUNTER → 2025-04-23 05:00 | Outpatient (REF) | payer SELFPAY ==
--- OUTSIDE RECORDS SUMMARY | 2025-04-23 03:46 | XMS RPT_ITS | CCD ---
Author Organization [facility] Care Team Providers Care Life Agent Name Role Phone Mateus Burris Primary Care [...] Provider Monika Staley MD Primary Care Provider [phone] Monika Staley MD Primary Care Provider Carlos [...] Unavailable Carlos Cavazos MD Primary Care Provider [phone] PROVIDER, UNKNOWN Primary Care Unavailable PROVIDER, UNKNOWN Referring Unavailable LANETTE MUNGUIA Attending Unavailable SHARON HSIEH Attending Jeanine vailable PROVIDER, UNKNOWN Primary Care Unavailable PROVIDER, UNKNOWN Referring Unavailable PROVIDER, UNKNOWN Referring Unavailable MATEUS BURRIS Primary Care Unavailabl DANTE Barrera Attending Unavailable Kenny, Carlos Primary Care Provider Quinn VALLADARES, Rebecca L Unavailable [phone] Quinn VALLADARES, Rebecca L Unavailable REBECCA BUCK Attending Unavailable REBECCA BUCK Referring Unavailable CARLOS CAVAZOS Primary Care Unavailable REBECCA BUCK Attending Unavailable KENNY, CARLOS Primary Care Unavailable REBECCA BUCK Attending Unavailable KENNY, CARLOS Primary Care Unavailable Luís VALLADARES, Dr. Monika Horner Primary Care Provider [facility] Attending Provider [phone] Carlos Nelson Attending Provider Jonh Pascual MD, [...] Cardoza MD, Dr. Monika Horner Primary [facility] [place] Physician Karon Corrales MD Attending Physician Unav ailCarlos Anglin Attending Physician Camelia Corrales MD, Karon Referring Provider Unava evan Staley MD, Dr. Monika Horner Primary [facility] [place] Physician Carlos Nelosn Attending Physician Unavailvanessa Corrales MD, Karon Attending [...] OLS, Mahaveer Attending Unavail able [facility] [place] Attending Unavai lable Luís, Shiela Primary Care Unavailable Crisostomo OLS, Babbaljeet Attending Unavailable Luís, Shiela Primary Care Unavailable [facility] [place] Attending Unavai lable Luís, Shiela Primary Care [...] Unavailable MukkKaron Hoover Attending Unavail able Lu[facility], [facility] Unavailable NubiaKaron Stacy Attending Unavail able Luís, Shiela Primary Care Unavailable NubiaKaron Stacy Attending Unavail able Luís, [facility] Primary Care Unavailable MaribelCarlos Flood Attending Unavailable [place], [facility] Unavailable Allergies Allergy Classification Reported Allergen(s) Allergy Type Date of Onset Reaction(s) Facility (13 sources) [facility] Drug All[facility] 5 [facility] Work [facility]: (15 sources) Alcohol Propensity to adverse reactions to drug 3 Rash, Hives, Other: See Comments, Other [facility] Work Phone: (1 source) Latex Drug Allergy 0 Rash [facility] (8 sources) Cortisone Drug Allergy 2 [facility] (7 sources) Latex Allergy to substance 0 Rash [facility] Medications Current Medications Medication Drug Class(es) Dates Sig (Normalized) Sig (Original) Acetaminophen (10 sources) Start: 10-21-2021 acetaminophen (TYLENOL) tablet 650 mg Start: 09-14-2021 acetaminophen (TYLENOL) 325 MG tablet 650 mg every 6 hours as needed 0 09/14/2021 Active take 2 tablets by [facility] every eight hours acetaminophen [...] Comment on above: [facility] Antacid TABS (6 sources) [...] Comment on above: Take 1 capsule by [facility] three times daily. Complete [...] Active docusate sodium 50 mg / sennosides, group home 8.6 mg oral tablet (1 source) Start: [...] once daily. Pentoxifylline (1 source) Blood Viscosity Flush Tester PENTOXIFYLLINE ORAL Take by mouth. 0 Active Comment on above: Take by mouth. petrolatum 0.41 mg/mg topical ointment (1 source) Start : 08-20 white petrolatum (AQUAPHOR) 41 % topical ointment Apply to affected area once daily. 0 08/20/2021 Active Comment on above: Apply to affected ar ea once daily. 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, [address] PT Coag (PPP) [Time] 25.1 s High 11.7-14.9 [facility] Comment on above: Order Comment: 411-2 Performed By: #### L 300.3900 ####[facility] [address] [place], [address] Prothrombin Time w/INRon INR Coag (PPP) [Relative time] 2.3 {INR} Normal [facility] Comment on above: Order Comment: 411-2 Performed By: #### L 300.3900 ####[facility] [address] [place], [address] PT Coag (PPP) [Time] 25.5 s High 11.7-14.9 [facility] Comment on above: Order Comment: 411-2 Performed By: #### L 300.3900 ####[facility] [address] [place], [address] Prothrombin Time w/INRon INR Coag (PPP) [Relative time] 2.0 {INR} Normal [facility] Comment on above: Order Comment: 411.2 Performed By: #### L 300.3900 ####[facility] [address] [place], [address] PT Coag (PPP) [Time] 22.8 s High 11.7-14.9 [facility] Comment on above: Order Comment: 411.2 Performed By: #### L 300.3900 ####[facility] [address] [place], [address] Prothrombin Time w/INRon INR Coag (PPP) [Relative time] 1.7 {INR} Normal [facility] Comment on above: Order Comment: 411-2 Performed By: #### L 300.3900 ####[facility] [address] [place], [address] PT Coag (PPP) [Time] 20.5 s High 11.7-14.9 [facility] Comment on above: Order Comment: 411-2 Performed By: #### L 300.3900 ####[facility] [address] [place], [address] Prothrombin Time w/INRon INR Coag (PPP) [Relative time] 1.5 {INR} Normal [facility] Comment on above: Order Comment: 411.2 Performed By: #### L 300.3900 ####[facility] [address] [place], [address] PT Coag (PPP) [Time] 18.4 s High 11.7-14.9 [facility] Comment on above: Order Comment: 411.2 Performed By: #### L 300.3900 ####[facility] [address] [place], [address] Prothrombin Time w/INRon INR Coag (PPP) [Relative time] 1.8 {INR} Normal [facility] Comment on above: Order Comment: 411.2 Performed By: #### L 300.3900 ####[facility] [address] [place], [address] PT Coag (PPP) [Time] 21.2 s High 11.7-14.9 [facility] Comment on above: Order Comment: 411.2 Performed By: #### L 300.3900 ####[facility] [address] [place], [place], [phone] International normalized rat io (INR) calculationOrdered By: Carlos Cavazos on 03-02-2025 INR Coag (Bld) [Relative time] 2.2 {INR} [facility] Prothrombin Time w/INRon INR Coag (PPP) [Relative time] 2.2 {INR} Normal [facility] Comment on above: Order Comment: 411-2 Performed By: #### L 300.3900 ####[facility] [address] [place], [place], [phone] Prothrombin timeOrdered By: Carlos Cavazos on 03-02-2025 PT Coag (PPP) [Time] 25.3 s High 11.7-14.9 [facility] Comment on above: Order Comment: 411-2 Performed By: #### L 300.3900 ####[facility] [address] [place], [place], [phone] International normalized rat io (INR) calculationOrdered By: Karon Corrales on 02-26-2025 INR Coag (Bld) [Relative time] 2.2 {INR} [facility] Prothrombin Time w/INRon INR Coag (PPP) [Relative time] 2.2 {INR} Normal [facility] Comment on above: Order Comment: 411.2 Performed By: #### L 300.3900 ####[facility] [address] [place], [address] PT Coag (PPP) [Time] 24.5 s High 11.7-14.9 [facility] Comment on above: Order Comment: 411.2 Performed By: #### L 300.3900 ####[facility] [address] [place], [place], [phone] Prothrombin timeOrdered By: Karon Corrales on 02-26-2025 PT Coag (PPP) [Time] 24.5 s High 11.7-14.9 [facility] International normalized rat io (INR) calculationOrdered By: Karon Corrales on 02-23-2025 INR Coag (Bld) [Relative time] 2.0 {INR} [facility] Prothrombin Time w/INRon INR Coag (PPP) [Relative time] 2.0 {INR} Normal [facility] Comment on above: Order Comment: 411.2 Performed By: #### L 300.3900 ####[facility] [address] [place], [place], [phone] PT Coag (PPP) [Time] 23.5 s High 11.7-14.9 [facility] Comment on above: Order Comment: 411.2 Performed By: #### L 300.3900 ####[facility] [address] [place], [place], [phone] Prothrombin timeOrdered By: Karon Corrales on 02-23-2025 PT Coag (PPP) [Time] 23.5 s High 11.7-14.9 [facility] International normalized rat io (INR) calculationOrdered By: Karon Corrales on 02-19-2025 INR Coag (Bld) [Relative time] 1.9 {INR} [facility] Prothrombin Time w/INRon INR Coag (PPP) [Relative time] 1.9 {INR} Normal [facility] Comment on above: Order Comment: 411.2 Performed By: #### L 300.3900 ####[facility] [address] [place], [address](177) PT Coag (PPP) [Time] 21.8 s High 11.7-14.9 [facility] Comment on above: Order Comment: 411.2 Performed By: #### L 300.3900 ####[facility] [address] [place], [place], [address] Prothrombin timeOrdered By: Karon Corrales on 02-19-2025 PT Coag (PPP) [Time] 21.8 s High 11.7-14.9 [facility] International normalized rat io (INR) calculationOrdered By: Karon Corrales on 02-16-2025 INR Coag (Bld) [Relative time] 1.5 {INR} [facility] Prothrombin Time w/INRon INR Coag (PPP) [Relative time] 1.5 {INR} Normal [facility] Comment on above: Order Comment: 411.2 Performed By: #### L 300.3900 ####[facility] [address] [place], [place], [phone] PT Coag (PPP) [Time] 18.6 s High 11.7-14.9 [facility] Comment on above: Order Comment: 411.2 Performed By: #### L 300.3900 ####[facility] [address] [place], [place], [address] Prothrombin timeOrdered By: Karon Corrales on 02-16-2025 PT Coag (PPP) [Time] 18.6 s High 11.7-14.9 [facility] International normalized rat io (INR) calculationOrdered By: Karon Corrales on 02-12-2025 INR Coag (Bld) [Relative time] 2.5 {INR} [facility] Prothrombin Time w/INRon INR Coag (PPP) [Relative time] 2.5 {INR} Normal [facility] Comment on above: Order Comment: 411.2 Performed By: #### L 300.3900 ####[facility] [address] [place], [address] PT Coag (PPP) [Time] 27.5 s High 11.7-14.9 [facility] Comment on above: Order Comment: 411.2 Performed By: #### L 300.3900 ####[facility] [address] [place], [address] Prothrombin timeOrdered By: Karon Corrales on 02-12-2025 PT Coag (PPP) [Time] 27.5 s High 11.7-14.9 [facility] International normalized rat io (INR) calculationOrdered By: Carlos Cavazos on 02-09-2025 INR Coag (Bld) [Relative time] 2.5 {INR} [facility] Prothrombin Time w/INRon INR Coag (PPP) [Relative time] 2.5 {INR} Normal [facility] Comment on above: Order Comment: 411-2 Performed By: #### L 300.3900 ####[facility] [address] [place], [address] INR Normal [facility] Comment on above: Order Comment: 411.2 Result Comment: MISS ING TUBE Performed By: #### L 300.3900 ####[facility] [address] [place], [address] PROTIME Normal 11.7-14.9 [facility] Comment on above: Order Comment: 411.2 Result Comment: MISS ING TUBE Performed By: #### L 300.3900 ####[facility] [address] [place], [address] Prothrombin timeOrdered By: Carlos Cavazos on 02-09-2025 PT Coag (PPP) [Time] 27.2 s High 11.7-14.9 [facility] Comment on above: Order Comment: 411-2 Performed By: #### L 300.3900 ####[facility] [address] [place], [address] International normalized rat io (INR) calculationOrdered By: Karon Corrales on 02-05-2025 INR Coag (Bld) [Relative time] 2.5 {INR} [facility] Prothrombin Time w/INRon INR Coag (PPP) [Relative time] 2.5 {INR} Normal [facility] Comment on above: Order Comment: 411.2 Performed By: #### L 300.3900 ####[facility] [address] [place], [address] PT Coag (PPP) [Time] 27.6 s High 11.7-14.9 [facility] Comment on above: Order Comment: 411.2 Performed By: #### L 300.3900 ####[facility] [address] [place], [place], [phone] Prothrombin timeOrdered By: Karon Corrales on 02-05-2025 PT Coag (PPP) [Time] 27.6 s High 11.7-14.9 [facility] International normalized rat io (INR) calculationOrdered By: Karon Corrales on 02-02-2025 INR Coag (Bld) [Relative time] 2.4 {INR} [facility] Prothrombin Time w/INRon INR Coag (PPP) [Relative time] 2.4 {INR} Normal [facility] Comment on above: Order Comment: 411.2 Performed By: #### L 300.3900 ####[facility] [address] [place], [address] PT Coag (PPP) [Time] 26.8 s High 11.7-14.9 [facility] Comment on above: Order Comment: 411.2 Performed By: #### L 300.3900 ####[facility] [address] [place], [place], [phone] Prothrombin timeOrdered By: Karon Corrales on 02-02-2025 PT Coag (PPP) [Time] 26.8 s High 11.7-14.9 [facility] International normalized rat io (INR) calculationOrdered By: Karon Corrales on 01-29-2025 INR Coag (Bld) [Relative time] 2.7 {INR} [facility] Prothrombin Time w/INRon INR Coag (PPP) [Relative time] 2.7 {INR} Normal [facility] Comment on above: Performed By: #### L 300.3900 ####[facility] [address] [place], [place], [phone]) PT Coag (PPP) [Time] 29.1 s High 11.7-14.9 [facility] Comment on above: Performed By: #### L 300.3900 ####[facility] [address] [place], [place], [phone]) Prothrombin timeOrdered By: Karon Corrales on 01-29-2025 PT Coag (PPP) [Time] 29.1 s High 11.7-14.9 [facility] International normalized rat io (INR) calculationOrdered By: Karon Corrales on 01-26-2025 INR Coag (Bld) [Relative time] 2.0 {INR} [facility] Prothrombin Time w/INRon INR Coag (PPP) [Relative time] 2.0 {INR} Normal [facility] Comment on above: Order Comment: 411.2 Performed By: #### L 300.3900 ####[facility] [address] [place], [place], [phone]47) PT Coag (PPP) [Time] 23.1 s High 11.7-14.9 [facility] Comment on above: Order Comment: 411.2 Performed By: #### L 300.3900 ####[facility] [address] [place], [place], [phone]) Prothrombin timeOrdered By: Karon Corrales on 01-26-2025 PT Coag (PPP) [Time] 23.1 s High 11.7-14.9 [facility] International normalized rat io (INR) calculationOrdered By: Karon Corrales on 01-22-2025 INR Coag (Bld) [Relative time] 2.4 {INR} [facility] Prothrombin Time w/INRon INR Coag (PPP) [Relative time] 2.4 {INR} Normal [facility] Comment on above: Order Comment: 411.2 Performed By: #### L 300.3900 ####[facility] [address] [place], [address] PT Coag (PPP) [Time] 26.6 s High 11.7-14.9 [facility] Comment on above: Order Comment: 411.2 Performed By: #### L 300.3900 ####[facility] [address] [place], [address] Prothrombin timeOrdered By: Karon Corrales on 01-22-2025 PT Coag (PPP) [Time] 26.6 s High 11.7-14.9 [facility] International normalized rat io (INR) calculationOrdered By: Carlos Cavazos on 01-19-2025 INR Coag (Bld) [Relative time] 2.7 {INR} [facility] Prothrombin Time w/INRon INR Coag (PPP) [Relative time] 2.7 {INR} Normal [facility] Comment on above: Order Comment: 411-2 Performed By: #### L 300.3900 ####[facility] [address] [place], [address] PT Coag (PPP) [Time] 29.7 s High 11.7-14.9 [facility] Comment on above: Order Comment: 411-2 Performed By: #### L 300.3900 ####[facility] [address] [place], [address] Prothrombin timeOrdered By: Carlos Cavazos on 01-19-2025 PT Coag (PPP) [Time] 29.7 s High 11.7-14.9 [facility] International normalized rat io (INR) calculationOrdered By: Karon Corrales on 01-15-2025 INR Coag (Bld) [Relative time] 2.4 {INR} [facility] Prothrombin Time w/INRon INR Coag (PPP) [Relative time] 2.4 {INR} Normal [facility] Comment on above: Order Comment: 411.1 Performed By: #### L 300.3900 ####[facility] [address] [place], [place], [address] PT Coag (PPP) [Time] 26.6 s High 11.7-14.9 [facility] Comment on above: Order Comment: 411.1 Performed By: #### L 300.3900 ####[facility] [address] [place], [place], [address] Prothrombin timeOrdered By: Karon Corrales on 01-15-2025 PT Coag (PPP) [Time] 26.6 s High 11.7-14.9 [facility] KEPPRA (LEVETIRACETAM)on KEPPRA 30.1 ug/mL Normal 10.0-40.0 [facility] Comment on above: Order Comment: 411.1 Result Comment: Perf ormed at: [facility] [address] [id number] Director: Alpesh Vázquez MD, Phone: [phone] Performed By: #### L 3630.0000, L030.6083 ####[facility] [address] [place], [place], [address] International normalized rat io (INR) calculationOrdered By: Karon Corrales on 01-12-2025 INR Coag (Bld) [Relative time] 2.3 {INR} [facility] LevetiracetamOrdered By: Carla Corrales on 01-12-2025 levETIRAcetam [Mass/Vol] 30.1 ug/mL 10.0-40.0 [facility] Comment on above: Performed at: - [facility] [address] [id number] Director: Alpesh Vázquez MD, Phone: [phone] Prothrombin Time w/INRon INR Coag (PPP) [Relative time] 2.3 {INR} Normal [facility] Comment on above: Order Comment: 411.1 Performed By: #### L 3310.0000, L300.3900 ####[facility] [address] [place], [address] PT Coag (PPP) [Time] 26.1 s High 11.7-14.9 [facility] Comment on above: Order Comment: 411.1 Performed By: #### L 3310.0000, L300.3900 ####[facility] [address] [place], [address] Prothrombin timeOrdered By: Karon Corrales on 01-12-2025 PT Coag (PPP) [Time] 26.1 s High 11.7-14.9 [facility] KEPPRA (LEVETIRACETAM)on KEPPRA 27.6 ug/mL Normal 10.0-40.0 [facility] Comment on above: Order Comment: 411.1 Result Comment: Perf ormed at: - [facility] [address] [id number] Director: Alpesh Vázquez MD, Phone: [phone] Performed By: #### L 3310.0000, L300.3900 ####[facility] [address] [place], [address] International normalized rat io (INR) calculationOrdered By: Karon Corrales on 01-08-2025 INR Coag (Bld) [Relative time] 2.2 {INR} [facility] Prothrombin Time w/INRon INR Coag (PPP) [Relative time] 2.2 {INR} Normal [facility] Comment on above: Order Comment: 411.1 Performed By: #### L 300.3900 ####[facility] [address] [place], [address] PT Coag (PPP) [Time] 24.5 s High 11.7-14.9 [facility] Comment on above: Order Comment: 411.1 Performed By: #### L 300.3900 ####[facility] [address] [place], [address] Prothrombin timeOrdered By: Karon Corrales on 01-08-2025 PT Coag (PPP) [Time] 24.5 s High 11.7-14.9 [facility] International normalized rat io (INR) calculationOrdered By: Karon Corrales on 01-06-2025 INR Coag (Bld) [Relative time] 3.2 {INR} [facility] LevetiracetamOrdered By: Carla Corrales on 01-06-2025 levETIRAcetam [Mass/Vol] 27.6 ug/mL 10.0-40.0 [facility] Comment on above: Performed at: [address] [id number] Director: Alpesh Vázquez MD, Phone: [phone] Prothrombin Time w/INRon INR Coag (PPP) [Relative time] 3.2 {INR} Normal [facility] Comment on above: Order Comment: 411.1 Performed By: #### L 3310.0000, L300.3900 ####[facility] [address] [place], [address] PT Coag (PPP) [Time] 33.1 s High 11.7-14.9 [facility] Comment on above: Order Comment: 411.1 Performed By: #### L 3310.0000, L300.3900 ####[facility] [address] [place], [place], [address] Prothrombin timeOrdered By: Karon Corrales on 01-06-2025 PT Coag (PPP) [Time] 33.1 s High 11.7-14.9 [facility] International normalized rat io (INR) calculationOrdered By: Karon Corrales on 01-01-2025 INR Coag (Bld) [Relative time] 2.7 {INR} [facility] Prothrombin Time w/INRon INR Coag (PPP) [Relative time] 2.7 {INR} Normal [facility] Comment on above: Order Comment: 411.1 Performed By: #### L [id number] ####[facility] [address] [place], [place], [address] Prothrombin timeOrdered By: Karon Corrales on 01-01-2025 PT Coag (PPP) [Time] 29.1 s High 11.7-14.9 [facility] Comment on above: Order Comment: 411.1 Performed By: #### L [id number] ####[facility] [address] [place], [place], [address] KEPPRA (LEVETIRACETAM)on KEPPRA 31.8 ug/mL Normal 10.0-40.0 [facility] Comment on above: Order Comment: 411-1 Result Comment: [facility]f [facility]med at: - [facility]fel[facility] [place], [place] [id number] Director: Alpesh Vázquez MD, Phone: [phone] Performed By: #### L 3310.0000, L324.3639 ####[facility] [address] [place], [place], [address] International normalized rat io (INR) calculationOrdered By: Carlos Cavazos on 12-29-2024 INR Coag (Bld) [Relative time] 3.3 {INR} [facility] KEPPRA (LEVETIRACETAM)on KEPPRA 33.3 ug/mL Normal 10.0-40.0 [facility] Comment on above: Order Comment: 411.1 Result Comment: Perf ormed at: [facility] [address] [id number] Director: Alpesh Vázquez MD, Phone: [phone] Performed By: #### L 3310.0000 ####[facility] [address] [facility] [address] LevetiracetamOrdered By: Ted Cavazos on 12-29-2024 levETIRAcetam [Mass/Vol] 31.8 ug/mL 10.0-40.0 [facility] Comment on above: Performed at: [employer] [address] [id number] Director: Alpesh Vázquez MD, Phone: [phone] Prothrombin Time w/INRon INR Coag (PPP) [Relative time] 3.3 {INR} Normal [facility] Comment on above: Order Comment: 411-1 Performed By: #### L 3310.0000, L300.3900 ####[facility] [address] [place], [place], [id number] Prothrombin timeOrdered By: Carlos Cavazos on 12-29-2024 PT Coag (PPP) [Time] 34.0 s High 11.7-14.9 [facility] Comment on above: Order Comment: 411-1 Performed By: #### L 3310.0000, L300.3900 ####[facility] [address] [place], [place], [id number] LevetiracetamOrdered By: Carla Corrales on 12-26-2024 levETIRAcetam [Mass/Vol] 33.3 ug/mL 10.0-40.0 [facility] Comment on above: Performed at: [employer] [address], [place] [id number] Director: Alpesh Vázquez MD, Phone: [phone] International normalized rat io (INR) calculationOrdered By: Karon Corrales on 12-25-2024 INR Coag (Bld) [Relative time] 2.8 {INR} [facility] Prothrombin Time w/INRon INR Coag (PPP) [Relative time] 2.8 {INR} Normal [facility] Comment on above: Order Comment: 411.1 Performed By: #### L 300.3900 ####[facility] [address] [place], [address] Prothrombin timeOrdered By: Karon Corrales on 12-25-2024 PT Coag (PPP) [Time] 30.0 s High 11.7-14.9 [facility] Comment on above: Order Comment: 411.1 Performed By: #### L 300.3900 ####[facility] [address] [place], [address] Anion gap in Serum or Plasma Ordered By: Carlos Cavazos on 12-24-2024 Anion gap [Moles/Vol] 13 mmol/L 09-18 [facility] BUN/creatinine ratioOrdered By: Carlos Cavazos on 12-24-2024 Urea nitrogen/Creatinine [Mass ratio] 19.2 mg/mg 02-23 [facility] Basic Metabolic Profile (BMP )on 12-24-2024 BUN/CRE 19.2 RATIO Normal 02-23 [facility] Comment on above: Order Comment: 411-1 Performed By: #### L 500.2500, L100.0500 ####[facility] [address] [place], [address] Calcium [Mass/Vol] 8.8 mg/dL Normal 7.6-11.0 [facility] Comment on above: Order Comment: 411-1 Performed By: #### L 500.2500, L100.0500 ####[facility] [address] [place], [address] Chloride [Moles/Vol] 103 mmol/L Normal 98-108 [facility] Comment on above: Order Comment: 411-1 Performed By: #### L 500.2500, L100.0500 ####[facility] [address] [place], [address] CO2 [Moles/Vol] 23.7 mmol/L Normal 21.0-32.0 [facility] Comment on above: Order Comment: 411-1 Performed By: #### L 500.2500, L100.0500 ####[facility] [address] [place], [address] Creatinine [Mass/Vol] 0.82 mg/dL Normal 0.70-1.20 [facility] Comment on above: Order Comment: 411-1 Performed By: #### L 500.2500, L100.0500 ####[facility] [address] [place], [address] GAP 13 Normal 5-15 [facility] Comment on above: Order Comment: 411-1 Performed By: #### L 500.2500, L100.0500 ####[facility] [address] [place], [address] GFR/1.73 sq M.predicted among non-blacks MDRD (S/P/Bld) [Vol rate/Area] 93 mL/min/{1.73_m2} Normal >60 [facility] Comment on above: Order Comment: 411-1 Result Comment: mL/m in/1.73m2 CKD-EPI Creatinine Equation (2020) Performed By: #### L 500.2500, L100.0500 ####[facility] [address] [place], [address] Glucose [Mass/Vol] 88 mg/dL Normal 70-99 [facility] Comment on above: Order Comment: 411-1 Performed By: #### L 500.2500, L100.0500 ####[facility] [address] [place], [address] Potassium [Moles/Vol] 4.2 mmol/L Normal 3.3-5.1 [facility] Comment on above: Order Comment: 411-1 Performed By: #### L 500.2500, L100.0500 ####[facility] [address] [place], [address] Sodium [Moles/Vol] 139 mmol/L Normal 133-145 [facility] Comment on above: Order Comment: 411-1 Performed By: #### L 500.2500, L100.0500 ####[facility] [address] [place], [address] Urea nitrogen [Mass/Vol] 16 mg/dL Normal 4-19 [facility] Comment on above: Order Comment: 411-1 Performed By: #### L 500.2500, L100.0500 ####[facility] [address] [place], [address] CBC-Complete Blood Cnt No Di ffon 12-24-2024 Erythrocyte distribution width (RBC) [Ratio] 15.4 % High 11.6-14.6 [facility] Comment on above: Order Comment: 411-1 Performed By: #### L 500.2500, L100.0500 ####[facility] [address] [place], [address] Hematocrit (Bld) [Volume fraction] 39.8 % Low 40-54 [facility] Comment on above: Order Comment: 411-1 Performed By: #### L 500.2500, L100.0500 ####[facility] [address] [place], [address] Hemoglobin (Bld) [Mass/Vol] 12.4 g/dL Low 13.0-16.5 [facility] Comment on above: Order Comment: 411-1 Performed By: #### L 500.2500, L100.0500 ####[facility] [address] [place], [address] MCH (RBC) [Entitic mass] 26.6 pg Low 27.0-32.0 [facility] Comment on above: Order Comment: 411-1 Performed By: #### L 500.2500, L100.0500 ####[facility] [address] [place], [address] MCHC (RBC) [Mass/Vol] 31.2 g/dL Low 32-36 [facility] Comment on above: Order Comment: 411-1 Performed By: #### L 500.2500, L100.0500 ####[facility] [address] [place], [address] MCV (RBC) [Entitic vol] 85.4 fL Normal 80-94 [facility] Comment on above: Order Comment: 411-1 Performed By: #### L 500.2500, L100.0500 ####[facility] [address] [place], [address] Platelet mean volume (Bld) [Entitic vol] 10.4 fL Normal 6.2-12.0 [facility] Comment on above: Order Comment: 411-1 Performed By: #### L 500.2500, L100.0500 ####[facility] [address] [place], [address] Platelets (Bld) [#/Vol] 290 10*3/uL Normal 150-450 [facility] Comment on above: Order Comment: 411-1 Performed By: #### L 500.2500, L100.0500 ####[facility] [address] [place], [address] RBC (Bld) [#/Vol] 4.66 10*6/uL Normal 4.6-6.2 [facility] Comment on above: Order Comment: 411-1 Performed By: #### L 500.2500, L100.0500 ####[place] [facility] [address] [place], [address] RDW SD 48.1 fl High 35.1-43.9 [facility] Comment on above: Order Comment: 411-1 Performed By: #### L 500.2500, L100.0500 ####[facility] [address] [place], [address] WBC (Bld) [#/Vol] 16.6 10*3/uL High 4.4-11.0 [facility] Comment on above: Order Comment: 411-1 Performed By: #### L 500.2500, L100.0500 ####[facility] [address] [place], [address] Carbon dioxide, total [Moles /volume] in Central venous bloodOrdered By: Carlos Cavazos on 12-24-2024 CO2 [Moles/Vol] 23.7 mmol/L 21.0-32.0 [facility] Chloride assayOrdered By: Sharif Crouch on 12-24-2024 Chloride [Moles/Vol] 103 mmol/L 98-108 [facility] Erythrocyte distribution wid th ratioOrdered By: Carlos Cavazos on 12-24-2024 Erythrocyte distribution width (RBC) [Ratio] 15.4 % High 11.6-14.6 [facility] Erythrocyte distribution wid th standard deviationOrdered By: Carlos Cavazos on 12-24-2024 Erythrocyte distribution width (RBC) [Ratio] 48.1 fl High 35.1-43.9 [facility] Glomerular filtration rate ( GFR) estimation/1.73 sq m using serum, plasma, or whole bOrdered By: Carlos Cavazos on 12-24-2024 GFR/1.73 sq M.predicted among non-blacks MDRD (S/P/Bld) [Vol rate/Area] 93 mL/min/{1.73_m2} >60 [facility] Comment on above: mL/min/1.73m2 CKD-EP I Creatinine Equation (2020) Hematocrit Auto (Bld) [Volum e fraction]Ordered By: Carlos Cavazos on 12-24-2024 Hematocrit (Bld) [Volume fraction] 39.8 % Low 40-54 [facility] Hemoglobin measurementOrdere d By: Carlos Cavazos on 12-24-2024 Hemoglobin (Bld) [Mass/Vol] 12.4 g/dL Low 13.0-16.5 [facility] MCV (mean corpuscular volume ) determinationOrdered By: Carlos Cavazos on 12-24-2024 MCV (RBC) [Entitic vol] 85.4 fL 80-94 [facility] Mean corpuscular hemoglobin (MCH) determinationOrdered By: Calros Cavazos on 12-24-2024 MCH (RBC) [Entitic mass] 26.6 pg Low 27.0-32.0 [facility] Mean corpuscular hemoglobin concentration (MCHC) determinationOrdered By: Carlos Cavazos on 12-24-2024 MCHC (RBC) [Mass/Vol] 31.2 g/dL Low 32-36 [facility] Mean platelet volume determi nationOrdered By: Carlos Cavazos on 12-24-2024 Platelet mean volume (Bld) [Entitic vol] 10.4 fL 6.2-12.0 [facility] Platelet countOrdered By: Sharif Crouch on 12-24-2024 Platelets (Bld) [#/Vol] 290 10*3/uL 150-450 [facility] Potassium measurement (mass/ volume)Ordered By: Carlos Cavazos on 12-24-2024 Potassium (Unsp spec) [Mass/Vol] 4.2 mmol/L 3.3-5.1 [facility] RBC Auto (Bld) [#/Vol]Ordere d By: Carlos Cavazos on 12-24-2024 RBC (Bld) [#/Vol] 4.66 10*6/uL 4.6-6.2 [facility] Serum creatinine measurement (mass/volume)Ordered By: Carlos Cavazos on 12-24-2024 Creatinine [Mass/Vol] 0.82 mg/dL 0.70-1.20 [facility] Serum glucose measurement (m ass/volume)Ordered By: Carlos Cavazos on 12-24-2024 Glucose [Mass/Vol] 88 mg/dL 70-99 [facility] Serum or plasma calcium oral urement (mass/volume)Ordered By: Carlos Cavazos on 12-24-2024 Calcium [Mass/Vol] 8.8 mg/dL 7.6-11.0 [facility] Serum or plasma urea nitroge n measurement (mass/volume)Ordered By: Carlos Cavazos on 12-24-2024 Urea nitrogen [Mass/Vol] 16 mg/dL 4-19 [facility] Sodium levelOrdered By: Moe Cavazos on 12-24-2024 Sodium [Moles/Vol] 139 mmol/L 133-145 [facility] White blood cell (WBC) count Ordered By: Carlos Cavazos on 12-24-2024 WBC (Bld) [#/Vol] 16.6 10*3/uL High 4.4-11.0 [facility] International normalized rat io (INR) calculationOrdered By: Karon Corrales on 12-22-2024 INR Coag (Bld) [Relative time] 2.6 {INR} [facility] Prothrombin Time w/INRon INR Coag (PPP) [Relative time] 2.6 {INR} Normal [facility] Comment on above: Order Comment: 411.1 Performed By: #### L 300.0811 ####[facility] [address] [facility]. [place], [place], [phone] PT Coag (PPP) [Time] 28.8 s High 11.7-14.9 [facility] Comment on above: Order Comment: 411.1 Performed By: #### L 300.3900 ####[facility] [address] [facility]. [place], [place], [phone] Prothrombin timeOrdered By: Karon Corrales on 12-22-2024 PT Coag (PPP) [Time] 28.8 s High 11.7-14.9 [facility] International normalized rat io (INR) calculationOrdered By: Karon Corrales on 12-18-2024 INR Coag (Bld) [Relative time] 2.4 {INR} [facility] Prothrombin Time w/INRon INR Coag (PPP) [Relative time] 2.4 {INR} Normal [facility] Comment on above: Order Comment: 411.1 Performed By: #### L 300.3900 ####[facility] [address] [place], [place], [phone] PT Coag (PPP) [Time] 26.7 s High 11.7-14.9 [facility] Comment on above: Order Comment: 411.1 Performed By: #### L 300.3900 ####[facility] [address] [place], [place], [phone] Prothrombin timeOrdered By: Karon Corrales on 12-18-2024 PT Coag (PPP) [Time] 26.7 s High 11.7-14.9 [facility] International normalized rat io (INR) calculationOrdered By: Karon Corrales on 12-15-2024 INR Coag (Bld) [Relative time] 2.3 {INR} [facility] Prothrombin Time w/INRon INR Coag (PPP) [Relative time] 2.3 {INR} Normal [facility] Comment on above: Order Comment: 411.1 Performed By: #### L 300.3900 ####[facility] [address] [place], [place], [phone] Prothrombin timeOrdered By: Karon Corrales on 12-15-2024 PT Coag (PPP) [Time] 25.7 s High 11.7-14.9 [facility] Comment on above: Order Comment: 411.1 Performed By: #### L 300.3900 ####[facility] [address] [place], [place], [phone] International normalized rat io (INR) calculationOrdered By: Carlos Cavazos on 12-11-2024 INR Coag (Bld) [Relative time] 2.2 {INR} [facility] Prothrombin Time w/INRon INR Coag (PPP) [Relative time] 2.2 {INR} Normal [facility] Comment on above: Order Comment: 411-1 Performed By: #### L 300.3900 ####[facility] [address] [place], [address] Prothrombin timeOrdered By: Carlos Cavazos on 12-11-2024 PT Coag (PPP) [Time] 24.7 s High 11.7-14.9 [facility] Comment on above: Order Comment: 411-1 Performed By: #### L 300.3900 ####[facility] [address] [place], [place], [phone] International normalized rat io (INR) calculationOrdered By: Karon Corrales on 12-08-2024 INR Coag (Bld) [Relative time] 2.2 {INR} [facility] Prothrombin Time w/INRon INR Coag (PPP) [Relative time] 2.2 {INR} Normal [facility] Comment on above: Order Comment: 411.1 Performed By: #### L 300.3900 ####[facility] [address] [place], [address] PT Coag (PPP) [Time] 25.0 s High 11.7-14.9 [facility] Comment on above: Order Comment: 411.1 Performed By: #### L 300.3900 ####[facility] [address] [place], [place], [phone] Prothrombin timeOrdered By: Karon Corrales on 12-08-2024 PT Coag (PPP) [Time] 25.0 s High 11.7-14.9 [facility] International normalized rat io (INR) calculationOrdered By: Karon Corrales on 12-04-2024 INR Coag (Bld) [Relative time] 2.3 {INR} [facility] Prothrombin Time w/INRon INR Coag (PPP) [Relative time] 2.3 {INR} Normal [facility] Comment on above: Order Comment: 411.1 Performed By: #### L 300.3900 ####[facility] [address] [place], [address] PT Coag (PPP) [Time] 25.9 s High 11.7-14.9 [facility] Comment on above: Order Comment: 411.1 Performed By: #### L 300.3900 ####[facility] [address] [place], [address] Prothrombin timeOrdered By: Karon Corrales on 12-04-2024 PT Coag (PPP) [Time] 25.9 s High 11.7-14.9 [facility] International normalized rat io (INR) calculationOrdered By: Karon Corrales on 12-02-2024 INR Coag (Bld) [Relative time] 2.5 {INR} [facility] Prothrombin Time w/INRon INR Coag (PPP) [Relative time] 2.5 {INR} Normal [facility] Comment on above: Order Comment: 411.1 Performed By: #### L 300.3900 ####[facility] [address] [place], [address] PT Coag (PPP) [Time] 27.3 s High 11.7-14.9 [facility] Comment on above: Order Comment: 411.1 Performed By: #### L 300.3900 ####[facility] [address] [place], [address] Prothrombin timeOrdered By: Karon Corrales on 12-02-2024 PT Coag (PPP) [Time] 27.3 s High 11.7-14.9 [facility] International normalized rat io (INR) calculationOrdered By: Carlos Cavazos on 12-01-2024 INR Coag (Bld) [Relative time] 2.3 {INR} [facility] Prothrombin Time w/INRon INR Coag (PPP) [Relative time] 2.3 {INR} Normal [facility] Comment on above: Order Comment: 411-1 Performed By: #### L 300.3900 ####[facility] [address] [place], [address] PT Coag (PPP) [Time] 26.0 s High 11.7-14.9 [facility] Comment on above: Order Comment: 411-1 Performed By: #### L 300.3900 ####[facility] [address] [place], [address] Prothrombin timeOrdered By: Carlos Cavazos on 12-01-2024 PT Coag (PPP) [Time] 26.0 s High 11.7-14.9 [facility] International normalized rat io (INR) calculationOrdered By: Carlos Cavazos on 11-28-2024 INR Coag (Bld) [Relative time] 3.1 {INR} [facility] Prothrombin Time w/INRon INR Coag (PPP) [Relative time] 3.1 {INR} Normal [facility] Comment on above: Order Comment: 411-1 Performed By: #### L 300.3900 ####[facility] [address] [place], [address] PT Coag (PPP) [Time] 32.8 s High 11.7-14.9 [facility] Comment on above: Order Comment: 411-1 Performed By: #### L 300.3900 ####[facility] [address] [place], [address] Prothrombin timeOrdered By: Carlos Cavazos on 11-28-2024 PT Coag (PPP) [Time] 32.8 s High 11.7-14.9 [facility] International normalized rat io (INR) calculationOrdered By: Karon Corrales on 11-27-2024 INR Coag (Bld) [Relative time] 3.3 {INR} [facility] Prothrombin Time w/INRon INR Coag (PPP) [Relative time] 3.3 {INR} Normal [facility] Comment on above: Order Comment: 411.1 Performed By: #### L 300.3900 ####[facility] [address] [place], [place], [phone] PT Coag (PPP) [Time] 34.3 s High 11.7-14.9 [facility] Comment on above: Order Comment: 411.1 Performed By: #### L 300.3900 ####[facility] [address] [place], [place], [phone] Prothrombin timeOrdered By: Karon Corrales on 11-27-2024 PT Coag (PPP) [Time] 34.3 s High 11.7-14.9 [facility] International normalized rat io (INR) calculationOrdered By: Karon Corrales on 11-24-2024 INR Coag (Bld) [Relative time] 2.8 {INR} [facility] Prothrombin Time w/INRon INR Coag (PPP) [Relative time] 2.8 {INR} Normal [facility] Comment on above: Order Comment: 411.2 Performed By: #### L 300.3900 ####[facility] [address] [place], [place], [phone] PT Coag (PPP) [Time] 30.0 s High 11.7-14.9 [facility] Comment on above: Order Comment: 411.2 Performed By: #### L 300.3900 ####[facility] [address] [place], [place], [phone] Prothrombin timeOrdered By: Karon Corrales on 11-24-2024 PT Coag (PPP) [Time] 30.0 s High 11.7-14.9 [facility] International normalized rat io (INR) calculationOrdered By: Karon Corrales on 11-20-2024 INR Coag (Bld) [Relative time] 3.0 {INR} [facility] Prothrombin Time w/INRon INR Coag (PPP) [Relative time] 3.0 {INR} Normal [facility] Comment on above: Order Comment: 411.2 Performed By: #### L 300.3900 ####[facility] [address] [place], [place], [phone] PT Coag (PPP) [Time] 32.0 s High 11.7-14.9 [facility] Comment on above: Order Comment: 411.2 Performed By: #### L 300.3900 ####[facility] [address] [place], [place], [phone] Prothrombin timeOrdered By: Karon Corrales on 11-20-2024 PT Coag (PPP) [Time] 32.0 s High 11.7-14.9 [facility] International normalized rat io (INR) calculationOrdered By: Karon Corrales on 11-17-2024 INR Coag (Bld) [Relative time] 2.9 {INR} [facility] Prothrombin Time w/INRon INR Coag (PPP) [Relative time] 2.9 {INR} Normal [facility] Comment on above: Order Comment: 411.2 Performed By: #### L 300.3900 ####[facility] [address] [place], [place], [phone] PT Coag (PPP) [Time] 30.7 s High 11.7-14.9 [facility] Comment on above: Order Comment: 411.2 Performed By: #### L 300.3900 ####[facility] [address] [place], [place], [phone] Prothrombin timeOrdered By: Karon Corrales on 11-17-2024 PT Coag (PPP) [Time] 30.7 s High 11.7-14.9 [facility] International normalized rat io (INR) calculationOrdered By: Karon Corrales on 11-13-2024 INR Coag (Bld) [Relative time] 2.2 {INR} [facility] Prothrombin Time w/INRon INR Coag (PPP) [Relative time] 2.2 {INR} Normal [facility] Comment on above: Order Comment: 411.2 Performed By: #### L 300.3900 ####[facility] [address] [place], [place], [phone] PT Coag (PPP) [Time] 24.7 s High 11.7-14.9 [facility] Comment on above: Order Comment: 411.2 Performed By: #### L 300.3900 ####[facility] [address] [place], [place], [phone] Prothrombin timeOrdered By: Karon Corrales on 11-13-2024 PT Coag (PPP) [Time] 24.7 s High 11.7-14.9 [facility] International normalized rat io (INR) calculationOrdered By: Karon Corrales on 11-10-2024 INR Coag (Bld) [Relative time] 2.6 {INR} [facility] Prothrombin Time w/INRon INR Coag (PPP) [Relative time] 2.6 {INR} Normal [facility] Comment on above: Order Comment: 411.2 Performed By: #### L 300.3900 ####[facility] [address] [place], [address] PT Coag (PPP) [Time] 28.7 s High 11.7-14.9 [facility] Comment on above: Order Comment: 411.2 Performed By: #### L 300.3900 ####[facility] [address] [place], [place], [phone] Prothrombin timeOrdered By: Karon Corrales on 11-10-2024 PT Coag (PPP) [Time] 28.7 s High 11.7-14.9 [facility] International normalized rat io (INR) calculationOrdered By: Karon Corrales on 11-06-2024 INR Coag (Bld) [Relative time] 3.1 {INR} [facility] Prothrombin Time w/INRon INR Coag (PPP) [Relative time] 3.1 {INR} Normal [facility] Comment on above: Order Comment: 411.2 Performed By: #### L 300.3900 ####[facility] [address] [place], [address] Prothrombin timeOrdered By: Karon Corrales on 11-06-2024 PT Coag (PPP) [Time] 33.0 s High 11.7-14.9 [facility] Comment on above: Order Comment: 411.2 Performed By: #### L 300.3900 ####[facility] [address] [place], [address] International normalized rat io (INR) calculationOrdered By: Carlos Cavazos on 11-03-2024 INR Coag (Bld) [Relative time] 3.0 {INR} [facility] Prothrombin Time w/INRon INR Coag (PPP) [Relative time] 3.0 {INR} Normal [facility] Comment on above: Order Comment: 411-2 Performed By: #### L 300.3900 ####[facility] [address] [place], [address] PT Coag (PPP) [Time] 31.4 s High 11.7-14.9 [facility] Comment on above: Order Comment: 411-2 Performed By: #### L 300.3900 ####[facility] [address] [place], [address] Prothrombin timeOrdered By: Carlos Cavazos on 11-03-2024 PT Coag (PPP) [Time] 31.4 s High 11.7-14.9 [facility] International normalized rat io (INR) calculationOrdered By: Karon Corrales on 10-30-2024 INR Coag (Bld) [Relative time] 2.4 {INR} [facility] Prothrombin Time w/INRon INR Coag (PPP) [Relative time] 2.4 {INR} Normal [facility] Comment on above: Performed By: #### L 300.3900 ####[facility] [address] [place], [place], [phone] PT Coag (PPP) [Time] 26.3 s High 11.7-14.9 [facility] Comment on above: Performed By: #### L 300.3900 ####[facility] [address] [place], [place], [phone] Prothrombin timeOrdered By: Karon Corrales on 10-30-2024 PT Coag (PPP) [Time] 26.3 s High 11.7-14.9 [facility] International normalized rat io (INR) calculationOrdered By: Karon Corrales on 10-27-2024 INR Coag (Bld) [Relative time] 2.2 {INR} [facility] Prothrombin Time w/INRon INR Coag (PPP) [Relative time] 2.2 {INR} Normal [facility] Comment on above: Order Comment: 411.2 Performed By: #### L 300.3900 ####[facility] [address] [place], [place], [phone] Prothrombin timeOrdered By: Karon Corrales on 10-27-2024 PT Coag (PPP) [Time] 24.5 s High 11.7-14.9 [facility] [facility] Comment on above: Order Comment: 411.2 Performed By: #### L 300.3900 ####[facility] [address] [place], [address] International normalized rat io (INR) calculationOrdered By: Karon Corrales on 10-23-2024 INR Coag (Bld) [Relative time] 2.5 {INR} [facility] Prothrombin Time w/INRon INR Coag (PPP) [Relative time] 2.5 {INR} Normal [facility] Comment on above: Order Comment: 411.2 Performed By: #### L 300.3900 ####[facility] [address] [place], [address] PT Coag (PPP) [Time] 27.9 s High 11.7-14.9 [facility] Comment on above: Order Comment: 411.2 Performed By: #### L 300.3900 ####[facility] [address] [place], [address] Prothrombin timeOrdered By: Karon Corrales on 10-23-2024 PT Coag (PPP) [Time] 27.9 s High 11.7-14.9 [facility] International normalized rat io (INR) calculationOrdered By: Karon Corrales on 10-20-2024 INR Coag (Bld) [Relative time] 3.1 {INR} [facility] Prothrombin Time w/INRon INR Coag (PPP) [Relative time] 3.1 {INR} Normal [facility] Comment on above: Order Comment: 411.2 Performed By: #### L 300.3900 ####[facility] [address] [place], [address] PT Coag (PPP) [Time] 32.8 s High 11.7-14.9 [facility] Comment on above: Order Comment: 411.2 Performed By: #### L 300.3900 ####[facility] [address], [address] Prothrombin timeOrdered By: Karon Corrales on 10-20-2024 PT Coag (PPP) [Time] 32.8 s High 11.7-14.9 [facility] International normalized rat io (INR) calculationOrdered By: Karon Corrales on 10-16-2024 INR Coag (Bld) [Relative time] 2.8 {INR} [facility] Prothrombin Time w/INRon INR Coag (PPP) [Relative time] 2.8 {INR} Normal [facility] Comment on above: Order Comment: 411.2 Performed By: #### L 300.3900 ####[facility] [address] [place], [place], [phone] PT Coag (PPP) [Time] 30.4 s High 11.7-14.9 [facility] Comment on above: Order Comment: 411.2 Performed By: #### L 300.3900 ####[facility] [address] [place], [address] Prothrombin timeOrdered By: Karon Corrales on 10-16-2024 PT Coag (PPP) [Time] 30.4 s High 11.7-14.9 [facility] International normalized rat io (INR) calculationOrdered By: Carlos Cavazos on 10-13-2024 INR Coag (Bld) [Relative time] 1.9 {INR} [facility] Prothrombin Time w/INRon INR Coag (PPP) [Relative time] 1.9 {INR} Normal [facility] Comment on above: Order Comment: 411-2 Performed By: #### L 300.3900 ####[facility] [address] [place], [place], [phone] PT Coag (PPP) [Time] 22.4 s High 11.7-14.9 [facility] Comment on above: Order Comment: 411-2 Performed By: #### L 300.3900 ####[facility] [address] [place], [place], [phone] Prothrombin timeOrdered By: Carlos Cavazos on 10-13-2024 PT Coag (PPP) [Time] 22.4 s High 11.7-14.9 [facility] International normalized rat io (INR) calculationOrdered By: Karon Corrales on 10-09-2024 INR Coag (Bld) [Relative time] 3.0 {INR} [facility] Prothrombin Time w/INRon INR Coag (PPP) [Relative time] 3.0 {INR} Normal [facility] Comment on above: Order Comment: 411.2 Performed By: #### L 300.3900 ####[facility] [address] [place], [address] Prothrombin timeOrdered By: Karon Corrales on 10-09-2024 PT Coag (PPP) [Time] 31.8 s High 11.7-14.9 [facility] Comment on above: Order Comment: 411.2 Performed By: #### L 300.3900 ####[facility] [address] [place], [address] International normalized rat io (INR) calculationOrdered By: Carlos Cavazos on 10-06-2024 INR Coag (Bld) [Relative time] 2.7 {INR} [facility] Prothrombin Time w/INRon INR Coag (PPP) [Relative time] 2.7 {INR} Normal [facility] Comment on above: Order Comment: 411-2 Performed By: #### L 300.3900 ####[facility] [address] [place], [address] PT Coag (PPP) [Time] 29.6 s High 11.7-14.9 [facility] Comment on above: Order Comment: 411-2 Performed By: #### L 300.3900 ####[facility] [address] [place], [address] Prothrombin timeOrdered By: Carlos Cavazos on 10-06-2024 PT Coag (PPP) [Time] 29.6 s High 11.7-14.9 [facility] International normalized rat io (INR) calculationOrdered By: Karon Corrales on 10-02-2024 INR Coag (Bld) [Relative time] 2.3 {INR} [facility] Prothrombin Time w/INRon INR Coag (PPP) [Relative time] 2.3 {INR} Normal [facility] Comment on above: Order Comment: 411.2 Performed By: #### L 300.3900 ####[facility] [address] [place], [address] PT Coag (PPP) [Time] 26.0 s High 11.7-14.9 [facility] Comment on above: Order Comment: 411.2 Performed By: #### L 300.3900 ####[facility] [address] [place], [address] Prothrombin timeOrdered By: Karon Corrales on 10-02-2024 PT Coag (PPP) [Time] 26.0 s High 11.7-14.9 [facility] International normalized rat io (INR) calculationOrdered By: Kaorn Corrales on 09-30-2024 INR Coag (Bld) [Relative time] 3.1 {INR} [facility] Prothrombin Time w/INRon INR Coag (PPP) [Relative time] 3.1 {INR} Normal [facility] Comment on above: Order Comment: 411.2 Performed By: #### L 300.3900 ####[facility] [address] [place], [address] PT Coag (PPP) [Time] 32.6 s High 11.7-14.9 [facility] Comment on above: Order Comment: 411.2 Performed By: #### L 300.3900 ####[facility] [address] [place], [place], [phone] Prothrombin timeOrdered By: Karon Corrales on 09-30-2024 PT Coag (PPP) [Time] 32.6 s High 11.7-14.9 [facility] International normalized rat io (INR) calculationOrdered By: Karon Corrales on 09-25-2024 INR Coag (Bld) [Relative time] 2.4 {INR} [facility] Prothrombin Time w/INRon INR Coag (PPP) [Relative time] 2.4 {INR} Normal [facility] Comment on above: Order Comment: 411.2 Performed By: #### L 300.3900 ####[facility] [address] [place], [address] Prothrombin timeOrdered By: Karon Corrales on 09-25-2024 PT Coag (PPP) [Time] 26.7 s High 11.7-14.9 [facility] Comment on above: Order Comment: 411.2 Performed By: #### L 300.3900 ####[facility] [address] [place], [place], [phone] International normalized rat io (INR) calculationOrdered By: Karon Corrales on 09-22-2024 INR Coag (Bld) [Relative time] 2.5 {INR} [facility] Prothrombin Time w/INRon INR Coag (PPP) [Relative time] 2.5 {INR} Normal [facility] Comment on above: Order Comment: 411.2 Performed By: #### L 300.3900 ####[facility] [address] [place], [place], [phone] Prothrombin timeOrdered By: Karon Corrales on 09-22-2024 PT Coag (PPP) [Time] 27.4 s High 11.7-14.9 [facility] Comment on above: Order Comment: 411.2 Performed By: #### L 300.3900 ####[facility] [address] [place], [address] International normalized rat io (INR) calculationOrdered By: Karon Corrales on 09-18-2024 INR Coag (Bld) [Relative time] 2.2 {INR} [facility] Prothrombin Time w/INRon INR Coag (PPP) [Relative time] 2.2 {INR} Normal [facility] Comment on above: Order Comment: 411.2 Performed By: #### L 300.3900 ####[facility] [address] [place], [place], [phone] PT Coag (PPP) [Time] 25.1 s High 11.7-14.9 [facility] Comment on above: Order Comment: 411.2 Performed By: #### L 300.3900 ####[facility] [address] [place], [place], [phone] Prothrombin timeOrdered By: Karon Corrales on 09-18-2024 PT Coag (PPP) [Time] 25.1 s High 11.7-14.9 [facility] International normalized rat io (INR) calculationOrdered By: Carlos Cavazos on 09-15-2024 INR Coag (Bld) [Relative time] 2.4 {INR} [facility] Prothrombin Time w/INRon INR Coag (PPP) [Relative time] 2.4 {INR} Normal [facility] Comment on above: Order Comment: 411-2 Performed By: #### L 300.3900 ####[facility] [address] [place], [place], [phone] Prothrombin timeOrdered By: Carlos Cavazos on 09-15-2024 PT Coag (PPP) [Time] 26.3 s High 11.7-14.9 [facility] Comment on above: Order Comment: 411-2 Performed By: #### L 300.3900 ####[facility] [address] [place], [place], [phone] International normalized rat io (INR) calculationOrdered By: Karon Corrales on 09-11-2024 INR Coag (Bld) [Relative time] 2.0 {INR} [facility] Prothrombin Time w/INRon INR Coag (PPP) [Relative time] 2.0 {INR} Normal [facility] Comment on above: Order Comment: 411.2 Performed By: #### L 300.3900 ####[facility] [address] [place], [place], [phone] PT Coag (PPP) [Time] 22.9 s High 11.7-14.9 [facility] Comment on above: Order Comment: 411.2 Performed By: #### L 300.3900 ####[facility] [address] [place], [place], [phone] Prothrombin timeOrdered By: Karon Corrales on 09-11-2024 PT Coag (PPP) [Time] 22.9 s High 11.7-14.9 [facility] International normalized rat io (INR) calculationOrdered By: Karon Corrales on 09-08-2024 INR Coag (Bld) [Relative time] 2.0 {INR} [facility] Prothrombin Time w/INRon INR Coag (PPP) [Relative time] 2.0 {INR} Normal [facility] Comment on above: Order Comment: 411.2 Performed By: #### L 300.3900 ####[facility] [address] [place], [place], [phone] PT Coag (PPP) [Time] 22.8 s High 11.7-14.9 [facility] Comment on above: Order Comment: 411.2 Performed By: #### L 300.3900 ####[facility] [address] [place], [place], [phone] Prothrombin timeOrdered By: Karon Corrales on 09-08-2024 PT Coag (PPP) [Time] 22.8 s High 11.7-14.9 [facility] International normalized rat io (INR) calculationOrdered By: Carlos Cavazos on 09-04-2024 INR Coag (Bld) [Relative time] 1.7 {INR} [facility] Prothrombin Time w/INRon INR Coag (PPP) [Relative time] 1.7 {INR} Normal [facility] Comment on above: Order Comment: 411-2 Performed By: #### L 300.3900 ####[facility] [address] [place], [address] PT Coag (PPP) [Time] 20.8 s High 11.7-14.9 [facility] Comment on above: Order Comment: 411-2 Performed By: #### L 300.3900 ####[facility] [address] [place], [phone] Prothrombin timeOrdered By: Carlos Cavazos on 09-04-2024 PT Coag (PPP) [Time] 20.8 s High 11.7-14.9 [facility] International normalized rat io (INR) calculationOrdered By: Carlos Cavazos on 09-01-2024 INR Coag (Bld) [Relative time] 2.9 {INR} [facility] Prothrombin Time w/INRon INR Coag (PPP) [Relative time] 2.9 {INR} Normal [facility] Comment on above: Order Comment: 411-2 Performed By: #### L 300.3900 ####[facility] [address] [place], [address] PT Coag (PPP) [Time] 30.7 s High 11.7-14.9 [facility] Comment on above: Order Comment: 411-2 Performed By: #### L 300.3900 ####[facility] [address], [phone] Prothrombin timeOrdered By: Carlos Cavazos on 09-01-2024 PT Coag (PPP) [Time] 30.7 s High 11.7-14.[address] [facility] International normalized rat io (INR) calculationOrdered By: Carlos Cavazos on 08-28-2024 INR Coag (Bld) [Relative time] 2.4 {INR} [facility] Prothrombin Time w/INRon INR Coag (PPP) [Relative time] 2.4 {INR} Normal [facility] Comment on above: Order Comment: 411-2 Performed By: #### L 300.3900 ####[facility] [address] [place], [address] Prothrombin timeOrdered By: Carlos Cavazos on 08-28-2024 PT Coag (PPP) [Time] 26.7 s High 11.7-14.9 [facility] Comment on above: Order Comment: 411-2 Performed By: #### L 300.3900 ####[facility] [address] [place], [address] International normalized rat io (INR) calculationOrdered By: Karon Corrales on 08-25-2024 INR Coag (Bld) [Relative time] 1.8 {INR} [facility] Prothrombin Time w/INRon INR Coag (PPP) [Relative time] 1.8 {INR} Normal [facility] Comment on above: Order Comment: 411.2 Performed By: #### L 300.3900 ####[facility] [address] [place], [place], [phone] PT Coag (PPP) [Time] 21.6 s High 11.7-14.9 [facility] Comment on above: Order Comment: 411.2 Performed By: #### L 300.3900 ####[facility] [address] [place], [address] Prothrombin timeOrdered By: Karon Corrales on 08-25-2024 PT Coag (PPP) [Time] 21.6 s High 11.7-14.9 [facility] International normalized rat io (INR) calculationOrdered By: Karon Corrales on 08-21-2024 INR Coag (Bld) [Relative time] 1.7 {INR} [facility] PSA, total screeningOrdered By: Karon Corrales on 08-21-2024 Prostate Specific Antigen Screen 0.52 ng/mL 0.02-4.00 [facility] Comment on above: This test was perfor med using the [employer] tPSA method. Measured values of a patient sample can vary depending on the testing procedure used. PSA values determined on patient samples by different testing procedures cannot be used interchangeably. If there is a change in PSA assays while monitoring therapy, sequential testing should be performed to confirm baseline values. PSA,Total - Annual Screenon 08-21-2024 PSA,TOT SCREEN 0.52 ng/mL Normal 0.02-4.00 [facility] Comment on above: Order Comment: 411.2 Result [...] values. Performed By: #### L 501.9910, L300.3900 ####[facility] [address] [place], [address] Prothrombin Time w/INRon INR Coag (PPP) [Relative time] 1.7 {INR} Normal [facility] Comment on above: Order Comment: 411.2 Performed By: #### L 501.9910, L300.3900 ####[facility] [address] [place], [address] Prothrombin timeOrdered By: Karon Corrales on 08-21-2024 PT Coag (PPP) [Time] 20.1 s High 11.7-14.9 [facility] Comment on above: Order Comment: 411.2 Performed By: #### L 501.9910, L300.3900 ####[facility] [address] [place], [place], [phone] International normalized rat io (INR) calculationOrdered By: Karon Corrales on 08-18-2024 INR Coag (Bld) [Relative time] 3.0 {INR} [facility] Prothrombin Time w/INRon INR Coag (PPP) [Relative time] 3.0 {INR} Normal [facility] Comment on above: Order Comment: 411.2 Performed By: #### L 300.3900 ####[facility] [address] [place], [place], [phone]) PT Coag (PPP) [Time] 31.4 s High 11.7-14.9 [facility] Comment on above: Order Comment: 411.2 Performed By: #### L 300.3900 ####[facility] [address] [place], [place], [phone] Prothrombin timeOrdered By: Karon Corrales on 08-18-2024 PT Coag (PPP) [Time] 31.4 s High 11.7-14.9 [facility] International normalized rat io (INR) calculationOrdered By: Karon Corrales on 08-14-2024 INR Coag (Bld) [Relative time] 2.4 {INR} [facility] Prothrombin Time w/INRon INR Coag (PPP) [Relative time] 2.4 {INR} Normal [facility] Comment on above: Order Comment: 411.2 Performed By: #### L 300.3900 ####[facility] [address] [place], [address] PT Coag (PPP) [Time] 26.6 s High 11.7-14.9 [facility] Comment on above: Order Comment: 411.2 Performed By: #### L 300.3900 ####[facility] [address] [place], [place], [phone] Prothrombin timeOrdered By: Karon Corrales on 08-14-2024 PT Coag (PPP) [Time] 26.6 s High 11.7-14.9 [facility] International normalized rat io (INR) calculationOrdered By: Karon Corrales on 08-11-2024 INR Coag (Bld) [Relative time] 3.1 {INR} [facility] Prothrombin Time w/INRon INR Coag (PPP) [Relative time] 3.1 {INR} Normal [facility] Comment on above: Order Comment: 411.2 Performed By: #### L 300.3900 ####[facility] [address] [place], [place], [phone] PT Coag (PPP) [Time] 32.4 s High 11.7-14.9 [facility] Comment on above: Order Comment: 411.2 Performed By: #### L 300.3900 ####[facility] [address] [place], [place], [phone] Prothrombin timeOrdered By: Karon Corrales on 08-11-2024 PT Coag (PPP) [Time] 32.4 s High 11.7-14.9 [facility] International normalized rat io (INR) calculationOrdered By: Carlos Cavazos on 08-07-2024 INR Coag (Bld) [Relative time] 2.8 {INR} [facility] Prothrombin Time w/INRon INR Coag (PPP) [Relative time] 2.8 {INR} Normal [facility] Comment on above: Order Comment: 411-2 Performed By: #### L 300.3900 ####[facility] [address] [place], [place], [phone] PT Coag (PPP) [Time] 30.3 s High 11.7-14.9 [facility] Comment on above: Order Comment: 411-2 Performed By: #### L 300.3900 ####[facility] [address] [place], [address] Prothrombin timeOrdered By: Carlos Cavazos on 08-07-2024 PT Coag (PPP) [Time] 30.3 s High 11.7-14.9 [facility] International normalized rat io (INR) calculationOrdered By: Carlos Cavazos on 08-04-2024 INR Coag (Bld) [Relative time] 1.9 {INR} [facility] Prothrombin Time w/INRon INR Coag (PPP) [Relative time] 1.9 {INR} Normal [facility] Comment on above: Order Comment: 411-2 Performed By: #### L 300.3900 ####[facility] [address] [place], [place], [phone] PT Coag (PPP) [Time] 22.1 s High 11.7-14.9 [facility] Comment on above: Order Comment: 411-2 Performed By: #### L 300.3900 ####[facility] [address] [place], [place], [phone] Prothrombin timeOrdered By: Carlos Cavazos on 08-04-2024 PT Coag (PPP) [Time] 22.1 s High 11.7-14.9 [facility] International normalized rat io (INR) calculationOrdered By: Karon Corrales on 07-31-2024 INR Coag (Bld) [Relative time] 3.2 {INR} [facility] Prothrombin Time w/INRon INR Coag (PPP) [Relative time] 3.2 {INR} Normal [facility] Comment on above: Order Comment: 411.2 Performed By: #### L 300.3900 ####[facility] [address] [place], [place], [phone] PT Coag (PPP) [Time] 33.5 s High 11.7-14.9 [facility] Comment on above: Order Comment: 411.2 Performed By: #### L 300.3900 ####[facility] [address] [place], [place], [phone] Prothrombin timeOrdered By: Karon Corrales on 07-31-2024 PT Coag (PPP) [Time] 33.5 s High 11.7-14.9 [facility] International normalized rat io (INR) calculationOrdered By: Karon Corrales on 07-28-2024 INR Coag (Bld) [Relative time] 2.7 {INR} [facility] Prothrombin Time w/INRon INR Coag (PPP) [Relative time] 2.7 {INR} Normal [facility] Comment on above: Order Comment: 411.2 Performed By: #### L 300.3900 ####[facility] [address] [place], [place], [phone] PT Coag (PPP) [Time] 29.6 s High 11.7-14.9 [facility] Comment on above: Order Comment: 411.2 Performed By: #### L 300.3900 ####[facility] [address] [place], [place], [phone] Prothrombin timeOrdered By: Karon Corrales on 07-28-2024 PT Coag (PPP) [Time] 29.6 s High 11.7-14.9 [facility] International normalized rat io (INR) calculationOrdered By: Carlos Cavazos on 07-25-2024 INR Coag (Bld) [Relative time] 3.0 {INR} [facility] Prothrombin Time w/INRon INR Coag (PPP) [Relative time] 3.0 {INR} Normal [facility] Comment on above: Order Comment: 411-2 Performed By: #### L 300.3900 ####[facility] [address] [place], [address] Prothrombin timeOrdered By: Carlos Cavazos on 07-25-2024 PT Coag (PPP) [Time] 32.1 s High 11.7-14.9 [facility] Comment on above: Order Comment: 411-2 Performed By: #### L 300.3900 ####[facility] [address] [place], [place], [phone] International normalized rat io (INR) calculationOrdered By: Karon Corrales on 07-24-2024 INR Coag (Bld) [Relative time] 3.4 {INR} [facility] Prothrombin Time w/INRon INR Coag (PPP) [Relative time] 3.4 {INR} Normal [facility] Comment on above: Order Comment: 411.2 Performed By: #### L 300.3900 ####[facility] [address] [place], [place], [phone] Prothrombin timeOrdered By: Karon Corrales on 07-24-2024 PT Coag (PPP) [Time] 35.4 s High 11.7-14.9 [facility] Comment on above: Order Comment: 411.2 Performed By: #### L 300.3900 ####[facility] [address] [place], [place], [phone] International normalized rat io (INR) calculationOrdered By: Karon Corrales on 07-21-2024 INR Coag (Bld) [Relative time] 1.6 {INR} [facility] Prothrombin Time w/INRon INR Coag (PPP) [Relative time] 1.6 {INR} Normal [facility] Comment on above: Order Comment: 411.2 Performed By: #### L 300.3900 ####[facility] [address] [place], [place], [phone] PT Coag (PPP) [Time] 19.6 s High 11.7-14.9 [facility] Comment on above: Order Comment: 411.2 Performed By: #### L 300.3900 ####[facility] [address] [place], [place], [phone] Prothrombin timeOrdered By: Karon Corrales on 07-21-2024 PT Coag (PPP) [Time] 19.6 s High 11.7-14.9 [facility] International normalized rat io (INR) calculationOrdered By: Karon Corrales on 07-17-2024 INR Coag (Bld) [Relative time] 2.9 {INR} [facility] Prothrombin Time w/INRon INR Coag (PPP) [Relative time] 2.9 {INR} Normal [facility] Comment on above: Order Comment: 411.2 Performed By: #### L 300.3900 ####[facility] [address] [place], [place], [phone] PT Coag (PPP) [Time] 31.1 s High 11.7-14.9 [facility] Comment on above: Order Comment: 411.2 Performed By: #### L 300.3900 ####[facility] [address] [place], [address] Prothrombin timeOrdered By: Karon Corrales on 07-17-2024 PT Coag (PPP) [Time] 31.1 s High 11.7-14.9 [facility] International normalized rat io (INR) calculationOrdered By: Carlos Cavazos on 07-14-2024 INR Coag (Bld) [Relative time] 2.5 {INR} [facility] Prothrombin Time w/INRon INR Coag (PPP) [Relative time] 2.5 {INR} Normal [facility] Comment on above: Order Comment: 411-2 Performed By: #### L 300.3900 ####[facility] [address] [place], [address] PT Coag (PPP) [Time] 27.5 s High 11.7-14.9 [facility] Comment on above: Order Comment: 411-2 Performed By: #### L 300.3900 ####[facility] [address] [place], [address] Prothrombin timeOrdered By: Carlos Cavazos on 07-14-2024 PT Coag (PPP) [Time] 27.5 s High 11.7-14.9 [facility] International normalized rat io (INR) calculationOrdered By: Carlos Cavazos on 07-11-2024 INR Coag (Bld) [Relative time] 2.5 {INR} [facility] Prothrombin Time w/INRon INR Coag (PPP) [Relative time] 2.5 {INR} Normal [facility] Comment on above: Performed By: #### L 300.3900 ####[facility] [address] [place], [address] PT Coag (PPP) [Time] 27.7 s High 11.7-14.9 [facility] Comment on above: Performed By: #### L 300.3900 ####[facility] [address] [place], [place], [phone] Prothrombin timeOrdered By: Carlos Cavazos on 07-11-2024 PT Coag (PPP) [Time] 27.7 s High 11.7-14.9 [facility] Prothrombin Time w/INRon INR Normal [facility] Comment on above: Order Comment: 411.2 Result Comment: QNS TUBE NOT FILLED Performed By: #### L 300.3900 ####[facility] [address] [place], [place], [phone] PROTIME Normal 11.7-14.9 [facility] Comment on above: Order Comment: 411.2 Result Comment: QNS TUBE NOT FILLED Performed By: #### L 300.3900 ####[facility] [address] [place], [place], [phone]) International normalized rat io (INR) calculationOrdered By: Kvng Crisostomo on 07-07-2024 INR Coag (Bld) [Relative time] 2.5 {INR} [facility] Prothrombin Time w/INRon INR Coag (PPP) [Relative time] 2.5 {INR} Normal [facility] Comment on above: Order Comment: 411.2 Performed By: #### L 300.3900 ####[facility] [address] [place], [address] PT Coag (PPP) [Time] 27.2 s High 11.7-14.9 [facility] Comment on above: Order Comment: 411.2 Performed By: #### L 300.3900 ####[facility] [address] [place], [address] Prothrombin timeOrdered By: Kvng Crisostomo on 07-07-2024 PT Coag (PPP) [Time] 27.2 s High 11.7-14.9 [facility] International normalized rat io (INR) calculationOrdered By: Kvng Crisostomo on 07-03-2024 INR Coag (Bld) [Relative time] 2.5 {INR} [facility] Prothrombin Time w/INRon INR Coag (PPP) [Relative time] 2.5 {INR} Normal [facility] Comment on above: Order Comment: 411.2 Performed By: #### L 300.3900 ####[facility] [address] [place], [address] PT Coag (PPP) [Time] 27.2 s High 11.7-14.9 [facility] Comment on above: Order Comment: 411.2 Performed By: #### L 300.3900 ####[facility] [address] [place], [address] Prothrombin timeOrdered By: Kvng Crisostomo on 07-03-2024 PT Coag (PPP) [Time] 27.2 s High 11.7-14.9 [facility] International normalized rat io (INR) calculationOrdered By: Kvng Crisostomo on 06-30-2024 INR Coag (Bld) [Relative time] 2.4 {INR} [facility] Prothrombin Time w/INRon INR Coag (PPP) [Relative time] 2.4 {INR} Normal [facility] Comment on above: Order Comment: 411.2 Performed By: #### L 300.3900 ####[facility] [address] [place], [address] PT Coag (PPP) [Time] 26.8 s High 11.7-14.9 [facility] Comment on above: Order Comment: 411.2 Performed By: #### L 300.3900 ####[facility] [address] [place], [address] Prothrombin timeOrdered By: Kvng Crisostomo on 06-30-2024 PT Coag (PPP) [Time] 26.8 s High 11.7-14.9 [facility] International normalized rat io (INR) calculationOrdered By: Kvng Crisostomo on 06-26-2024 INR Coag (Bld) [Relative time] 2.5 {INR} [facility] Prothrombin Time w/INRon INR Coag (PPP) [Relative time] 2.5 {INR} Normal [facility] Comment on above: Order Comment: 411.2 Performed By: #### L 300.3900 ####[facility] [address] [place], [address] PT Coag (PPP) [Time] 27.5 s High 11.7-14.9 [facility] Comment on above: Order Comment: 411.2 Performed By: #### L 300.3900 ####[facility] [address] [place], [place], [phone] Prothrombin timeOrdered By: Kvng Crisostomo on 06-26-2024 PT Coag (PPP) [Time] 27.5 s High 11.7-14.9 [facility] International normalized rat io (INR) calculationOrdered By: Carlos Cavazos on 06-23-2024 INR Coag (Bld) [Relative time] 2.8 {INR} [facility] Prothrombin Time w/INRon INR Coag (PPP) [Relative time] 2.8 {INR} Normal [facility] Comment on above: Order Comment: 411-2 Performed By: #### L 300.3900 ####[facility] [address] [place], [address] PT Coag (PPP) [Time] 29.7 s High 11.7-14.9 [facility] Comment on above: Order Comment: 411-2 Performed By: #### L 300.3900 ####[facility] [address] [place], [address] Prothrombin timeOrdered By: Carlos Cavazos on 06-23-2024 PT Coag (PPP) [Time] 29.7 s High 11.7-14.9 [facility] International normalized rat io (INR) calculationOrdered By: Kvng Crisostomo on 06-19-2024 INR Coag (Bld) [Relative time] 2.6 {INR} [facility] Prothrombin Time w/INRon INR Coag (PPP) [Relative time] 2.6 {INR} Normal [facility] Comment on above: Order Comment: 411.2 Performed By: #### L 300.3900 ####[facility] [address] [place], [address] PT Coag (PPP) [Time] 28.6 s High 11.7-14.9 [facility] Comment on above: Order Comment: 411.2 Performed By: #### L 300.3900 ####[facility] [address] [place], [address] Prothrombin timeOrdered By: Kvng Crisostomo on 06-19-2024 PT Coag (PPP) [Time] 28.6 s High 11.7-14.9 [facility] normalized rat io (INR) calculationOrdered By: Kvng Crisostomo on 06-16-2024 INR Coag (Bld) [Relative time] 2.5 {INR} [facility] Prothrombin Time w/INRon INR Coag (PPP) [Relative time] 2.5 {INR} Normal [facility] Comment on above: Order Comment: 411.2 Performed By: #### L 300.3900 ####[facility] [address] [place], [address] PT Coag (PPP) [Time] 27.3 s High 11.7-14.9 [facility] Comment on above: Order Comment: 411.2 Performed By: #### L 300.3900 ####[facility] [address] [place], [address] Prothrombin timeOrdered By: Kvng Crisostomo on 06-16-2024 PT Coag (PPP) [Time] 27.3 s High 11.7-14.9 [facility] normalized rat io (INR) calculationOrdered By: Kvng Crisostomo on 06-12-2024 INR Coag (Bld) [Relative time] 2.1 {INR} [facility] Prothrombin Time w/INRon INR Coag (PPP) [Relative time] 2.1 {INR} Normal [facility] Comment on above: Order Comment: 411.2 Performed By: #### L 300.3900 ####[facility] [address] [place], [address] PT Coag (PPP) [Time] 24.0 s High 11.7-14.9 [facility] Comment on above: Order Comment: 411.2 Performed By: #### L 300.3900 ####[facility] [address] [place], [address] Prothrombin timeOrdered By: Kvng Crisostomo on 06-12-2024 PT Coag (PPP) [Time] 24.0 s High 11.7-14.9 [facility] normalized rat io (INR) calculationOrdered By: Carlos Cavazos on 06-09-2024 INR Coag (Bld) [Relative time] 1.5 {INR} [facility] Prothrombin Time w/INRon INR Coag (PPP) [Relative time] 1.5 {INR} Normal [facility] Comment on above: Order Comment: 411-2 Performed By: #### L 300.3900 ####[facility] [address] [place], [address] PT Coag (PPP) [Time] 18.0 s High 11.7-14.9 [facility] Comment on above: Order Comment: 411-2 Performed By: #### L 300.3900 ####[facility] [address], [address] Prothrombin timeOrdered By: Carlos Cavazos on 06-09-2024 PT Coag (PPP) [Time] 18.0 s High 11.7-14.9 [facility] International normalized rat io (INR) calculationOrdered By: Kvng Crisostomo on 06-05-2024 INR Coag (Bld) [Relative time] 2.8 {INR} [facility] Prothrombin Time w/INRon INR Coag (PPP) [Relative time] 2.8 {INR} Normal [facility] Comment on above: Order Comment: 411.2 Performed By: #### L 300.3900 ####[facility] [address], [address] PT Coag (PPP) [Time] 30.3 s High 11.7-14.9 [facility] Comment on above: Order Comment: 411.2 Performed By: #### L 300.3900 ####[facility] [address] [place], [address] Prothrombin timeOrdered By: Kvng Crisostomo on 06-05-2024 PT Coag (PPP) [Time] 30.3 s High 11.7-14.9 [facility] International normalized rat io (INR) calculationOrdered By: Kvng Crisostomo on 06-02-2024 INR Coag (Bld) [Relative time] 2.6 {INR} [facility] Prothrombin Time w/INRon INR Coag (PPP) [Relative time] 2.6 {INR} Normal [facility] Comment on above: Order Comment: 411.2 Performed By: #### L 300.3900 ####[facility] [address] [place], [address] PT Coag (PPP) [Time] 28.6 s High 11.7-14.9 [facility] Comment on above: Order Comment: 411.2 Performed By: #### L 300.3900 ####[facility] [address] [facility] [address] Prothrombin timeOrdered By: Kvng Crisostomo on 06-02-2024 PT Coag (PPP) [Time] 28.6 s High 11.7-14.9 [facility] International normalized rat io (INR) calculationOrdered By: Kvng Crisostomo on 05-29-2024 INR Coag (Bld) [Relative time] 2.5 {INR} [facility] Prothrombin Time w/INRon INR Coag (PPP) [Relative time] 2.5 {INR} Normal [facility] Comment on above: Order Comment: 411.2 Performed By: #### L 300.3900 ####[facility] [address] [place], [address] PT Coag (PPP) [Time] 27.7 s High 11.7-14.9 [facility] Comment on above: Order Comment: 411.2 Performed By: #### L 300.3900 ####[facility] [address] [place], [address] Prothrombin timeOrdered By: Kvng Crisostomo on 05-29-2024 PT Coag (PPP) [Time] 27.7 s High 11.7-14.9 [facility] normalized rat io (INR) calculationOrdered By: Carlos Cavazos on 05-26-2024 INR Coag (Bld) [Relative time] 2.2 {INR} [facility] Prothrombin Time w/INRon INR Coag (PPP) [Relative time] 2.2 {INR} Normal [facility] Comment on above: Order Comment: 411-2 Performed By: #### L 300.3900 ####[facility] [address] [place], [place], [phone] PT Coag (PPP) [Time] 24.5 s High 11.7-14.9 [facility] Comment on above: Order Comment: 411-2 Performed By: #### L 300.3900 ####[facility] [address] [place], [address] Prothrombin timeOrdered By: Carlos Cavazos on 05-26-2024 PT Coag (PPP) [Time] 24.5 s High 11.7-14.9 [facility] normalized rat io (INR) calculationOrdered By: Kvng Crisostomo on 05-22-2024 INR Coag (Bld) [Relative time] 2.8 {INR} [facility] Prothrombin Time w/INRon INR Coag (PPP) [Relative time] 2.8 {INR} Normal [facility] Comment on above: Order Comment: 411.2 Performed By: #### L 300.3900 ####[facility] [address] [place], [place], [phone] PT Coag (PPP) [Time] 30.3 s High 11.7-14.9 [facility] Comment on above: Order Comment: 411.2 Performed By: #### L 300.3900 ####[facility] [address] [place], [address] Prothrombin timeOrdered By: Kvng Crisostomo on 05-22-2024 PT Coag (PPP) [Time] 30.3 s High 11.7-14.9 [facility] normalized rat io (INR) calculationOrdered By: Kvng Crisostomo on 05-20-2024 INR Coag (Bld) [Relative time] 4.0 {INR} High [facility] Comment on above: CRITICAL VALUE CASEY D TO [id number]/14/25 08 Diana Srinivasan.RESULTS READ BACK BY SAME. Prothrombin Time w/INRon INR Coag (PPP) [Relative time] 4.0 {INR} Invalid Interpretation Code [facility] Comment on above: Order Comment: 411.2 Result Comment: CRIT ICAL VALUE CALLED TO [id number]/14/25 [facility] Daina Mattson.RESULTS READ BACK BY SAME. Performed By: #### L 300.3900 ####[facility] [address] [place], [place], [phone](731) PT Coag (PPP) [Time] 39.9 s High 11.7-14.9 [facility] Comment on above: Order Comment: 411.2 Performed By: #### L 300.3900 ####[facility] [address] [place], [place], [phone] Prothrombin timeOrdered By: Kvng Crisostomo on 05-20-2024 PT Coag (PPP) [Time] 39.9 s High 11.7-14.9 [facility] International normalized rat io (INR) calculationOrdered By: Kvng Crisostomo on 05-19-2024 INR Coag (Bld) [Relative time] 3.4 {INR} [facility] Prothrombin Time w/INRon INR Coag (PPP) [Relative time] 3.4 {INR} Normal [facility] Comment on above: Order Comment: 411.2 Performed By: #### L 300.3900 ####[facility] [address] [place], [place], [phone](730) PT Coag (PPP) [Time] 35.4 s High 11.7-14.9 [facility] Comment on above: Order Comment: 411.2 Performed By: #### L 300.3900 ####[facility] [address] [place], [place], [phone](187) Prothrombin timeOrdered By: Kvng Crisostomo on 05-19-2024 PT Coag (PPP) [Time] 35.4 s High 11.7-14.9 [facility] International normalized rat io (INR) calculationOrdered By: Kvng Crisostomo on 05-15-2024 INR Coag (Bld) [Relative time] 2.6 {INR} [facility] Prothrombin Time w/INRon INR Coag (PPP) [Relative time] 2.6 {INR} Normal [facility] Comment on above: Order Comment: 411.2 Performed By: #### L 300.3900 ####[facility] [address] [place], [place], [phone] PT Coag (PPP) [Time] 28.7 s High 11.7-14.9 [facility] Comment on above: Order Comment: 411.2 Performed By: #### L 300.3900 ####[facility] [address] [place], [address] Prothrombin timeOrdered By: Kvng Crisostomo on 05-15-2024 PT Coag (PPP) [Time] 28.7 s High 11.7-14.9 [facility] normalized rat io (INR) calculationOrdered By: Carlos Cavazos on 05-12-2024 INR Coag (Bld) [Relative time] 2.1 {INR} [facility] Prothrombin Time w/INRon INR Coag (PPP) [Relative time] 2.1 {INR} Normal [facility] Comment on above: Order Comment: 411-2 Performed By: #### L 300.3900 ####[facility] [address] [place], [address] PT Coag (PPP) [Time] 24.1 s High 11.7-14.9 [facility] Comment on above: Order Comment: 411-2 Performed By: #### L 300.3900 ####[facility] [address] [place], [place], [phone] Prothrombin timeOrdered By: Carlos Cavazos on 05-12-2024 PT Coag (PPP) [Time] 24.1 s High 11.7-14.9 [facility] normalized rat io (INR) calculationOrdered By: Kvng Crisostomo on 05-09-2024 INR Coag (Bld) [Relative time] 3.4 {INR} [facility] Prothrombin Time w/INRon INR Coag (PPP) [Relative time] 3.4 {INR} Normal [facility] Comment on above: Order Comment: 411.2 Performed By: #### L 300.3900 ####[facility] [address] [place], [place], [phone] PT Coag (PPP) [Time] 35.4 s High 11.7-14.9 [facility] Comment on above: Order Comment: 411.2 Performed By: #### L 300.3900 ####[facility] [address] [place], [place], [phone] Prothrombin timeOrdered By: Kvng Crisostomo on 05-09-2024 PT Coag (PPP) [Time] 35.4 s High 11.7-14.9 [facility] normalized rat io (INR) calculationOrdered By: Kvng Crisostomo on 05-08-2024 INR Coag (Bld) [Relative time] 4.1 {INR} High [facility] Comment on above: CRITICAL VALUE CASEY D TO [facility]BY [facility]05/08/24 0950 Karen Jamison.RESULTS READ BACK BY SAME. Prothrombin Time w/INRon INR Coag (PPP) [Relative time] 4.1 {INR} Invalid Interpretation Code [facility] Comment on above: Order Comment: 411.2 Result Comment: CRIT ICAL VALUE CALLED TO COBY HAIRSTONNH05/08/24 0950 Karen Jamison.RESULTS READ BACK BY SAME. Performed By: #### L 300.3900 ####[facility] [address] [place], [address] PT Coag (PPP) [Time] 40.8 s High 11.7-14.9 [facility] Comment on above: Order Comment: 411.2 Performed By: #### L 300.3900 ####[facility] [address] [place], [address] Prothrombin timeOrdered By: Babbaljeet Andressa on 05-08-2024 PT Coag (PPP) [Time] 40.8 s High 11.7-14.9 [facility] normalized rat io (INR) calculationOrdered By: Babbaljeet Crisostomo on 05-05-2024 INR Coag (Bld) [Relative time] 3.2 {INR} [facility] Prothrombin Time w/INRon INR Coag (PPP) [Relative time] 3.2 {INR} Normal [facility] Comment on above: Order Comment: 411.2 Performed By: #### L 300.3900 ####[facility] [address] [place], [address] PT Coag (PPP) [Time] 32.5 s High 11.7-14.9 [facility] Comment on above: Order Comment: 411.2 Performed By: #### L 300.3900 ####[facility] [address] [place], [address] Prothrombin timeOrdered By: Babbaljeet Crisostomo on 05-05-2024 PT Coag (PPP) [Time] 32.5 s High 11.7-14.9 [facility] normalized rat io (INR) calculationOrdered By: Babbaljeet Crisostomo on 05-01-2024 INR Coag (Bld) [Relative time] 3.1 {INR} [facility] Prothrombin Time w/INRon INR Coag (PPP) [Relative time] 3.1 {INR} Normal [facility] Comment on above: Order Comment: 411.2 Performed By: #### L 300.3900 ####[facility] [address] [place], [address] PT Coag (PPP) [Time] 31.9 s High 11.7-14.9 [facility] Comment on above: Order Comment: 411.2 Performed By: #### L 300.3900 ####[facility] [address] [place], [address] Prothrombin timeOrdered By: Kvng Crisostomo on 05-01-2024 PT Coag (PPP) [Time] 31.9 s High 11.7-14.9 [facility] International normalized rat io (INR) calculationOrdered By: Carlos Cavazos on 04-28-2024 INR Coag (Bld) [Relative time] 2.6 {INR} [facility] Prothrombin Time w/INRon INR Coag (PPP) [Relative time] 2.6 {INR} Normal [facility] Comment on above: Order Comment: 411-2 Performed By: #### L 300.3900 ####[facility] [address] [place], [address] PT Coag (PPP) [Time] 27.3 s High 11.7-14.9 [facility] Comment on above: Order Comment: 411-2 Performed By: #### L 300.3900 ####[facility] [address] [place], [address] Prothrombin timeOrdered By: Carlos Cavazos on 04-28-2024 PT Coag (PPP) [Time] 27.3 s High 11.7-14.9 [facility] International normalized rat io (INR) calculationOrdered By: Kvng Crisostomo on 04-24-2024 INR Coag (Bld) [Relative time] 3.6 {INR} [facility] Prothrombin Time w/INRon INR Coag (PPP) [Relative time] 3.6 {INR} Normal [facility] Comment on above: Order Comment: 411.2 Performed By: #### L 300.3900 ####[facility] [address] [place], [address] PT Coag (PPP) [Time] 35.6 s High 11.7-14.9 [facility] Comment on above: Order Comment: 411.2 Performed By: #### L 300.3900 ####[facility] [address] [place], [address] Prothrombin timeOrdered By: Kvng Crisostomo on 04-24-2024 PT Coag (PPP) [Time] 35.6 s High 11.7-14.9 [facility] International normalized rat io (INR) calculationOrdered By: Carlos Cavazos on 04-21-2024 INR Coag (Bld) [Relative time] 2.8 {INR} [facility] Prothrombin Time w/INRon INR Coag (PPP) [Relative time] 2.8 {INR} Normal [facility] Comment on above: Order Comment: 411-2 Performed By: #### L 300.3900 ####[facility] [address] [place], [address] PT Coag (PPP) [Time] 29.4 s High 11.7-14.9 [facility] Comment on above: Order Comment: 411-2 Performed By: #### L 300.3900 ####[facility] [address] [place], [address] Prothrombin timeOrdered By: Carlos Cavazos on 04-21-2024 PT Coag (PPP) [Time] 29.4 s High 11.7-14.9 [facility] normalized rat io (INR) calculationOrdered By: Kvng Crisostomo on 04-17-2024 INR Coag (Bld) [Relative time] 3.1 {INR} [facility] Prothrombin Time w/INRon INR Coag (PPP) [Relative time] 3.1 {INR} Normal [facility] Comment on above: Order Comment: 411.2 Performed By: #### L 300.3900 ####[facility] [address] [place], [place], [phone](490) Prothrombin timeOrdered By: Kvng Crisostomo on 04-17-2024 PT Coag (PPP) [Time] 31.3 s High 11.7-14.9 [facility] Comment on above: Order Comment: 411.2 Performed By: #### L 300.3900 ####[facility] [address] [place], [place], [phone](079) International normalized rat io (INR) calculationOrdered By: Kvng Crisostomo on 04-14-2024 INR Coag (Bld) [Relative time] 3.3 {INR} [facility] Prothrombin Time w/INRon INR Coag (PPP) [Relative time] 3.3 {INR} Normal [facility] Comment on above: Order Comment: 411.2 Performed By: #### L 300.3900 ####[facility] [address] [place], [place], [phone](442) PT Coag (PPP) [Time] 33.2 s High 11.7-14.9 [facility] Comment on above: Order Comment: 411.2 Performed By: #### L 300.3900 ####[facility] [address] [place], [place], [phone](399) Prothrombin timeOrdered By: Kvng Crisostomo on 04-14-2024 PT Coag (PPP) [Time] 33.2 s High 11.7-14.9 [facility] normalized rat io (INR) calculationOrdered By: Kvng Crisostomo on 04-10-2024 INR Coag (Bld) [Relative time] 2.8 {INR} [facility] Prothrombin Time w/INRon INR Coag (PPP) [Relative time] 2.8 {INR} Normal [facility] Comment on above: Order Comment: 411.2 Performed By: #### L 300.3900 ####[facility] [address] [place], [address] PT Coag (PPP) [Time] 29.2 s High 11.7-14.9 [facility] Comment on above: Order Comment: 411.2 Performed By: #### L 300.3900 ####[facility] [address] [place], [address] Prothrombin timeOrdered By: Kvng Crisostomo on 04-10-2024 PT Coag (PPP) [Time] 29.2 s High 11.7-14.9 [facility] normalized rat io (INR) calculationOrdered By: Carlos Cavazos on 04-07-2024 INR Coag (Bld) [Relative time] 2.7 {INR} [facility] Prothrombin Time w/INRon INR Coag (PPP) [Relative time] 2.7 {INR} Normal [facility] Comment on above: Order Comment: 411-2 Performed By: #### L 300.3900 ####[facility] [address] [place], [address] PT Coag (PPP) [Time] 28.1 s High 11.7-14.9 [facility] Comment on above: Order Comment: 411-2 Performed By: #### L 300.3900 ####[facility] [address] [place], [address] Prothrombin timeOrdered By: Carlos Cavazos on 04-07-2024 PT Coag (PPP) [Time] 28.1 s High 11.7-14.9 [facility] normalized rat io (INR) calculationOrdered By: Kvng Crisostomo on 04-04-2024 INR Coag (Bld) [Relative time] 2.8 {INR} [facility] Prothrombin Time w/INRon INR Coag (PPP) [Relative time] 2.8 {INR} Normal [facility] Comment on above: Order Comment: 411.2 Performed By: #### L 300.3900 ####[facility] [address] [place], [address] PT Coag (PPP) [Time] 28.9 s High 11.7-14.9 [facility] Comment on above: Order Comment: 411.2 Performed By: #### L 300.3900 ####[facility] [address] [place], [address] Prothrombin timeOrdered By: Kvng Crisostomo on 04-04-2024 PT Coag (PPP) [Time] 28.9 s High 11.7-14.9 [facility] International normalized rat io (INR) calculationOrdered By: Carlos Cavazos on 03-31-2024 INR Coag (Bld) [Relative time] 2.6 {INR} [facility] Prothrombin Time w/INRon INR Coag (PPP) [Relative time] 2.6 {INR} Normal [facility] Comment on above: Order Comment: 411-2 Performed By: #### L 300.3900 ####[facility] [address] [place], [address] PT Coag (PPP) [Time] 27.3 s High 11.7-14.9 [facility] Comment on above: Order Comment: 411-2 Performed By: #### L 300.3900 ####[facility] [address] [place], [address] Prothrombin timeOrdered By: Carlos Cavazos on 03-31-2024 PT Coag (PPP) [Time] 27.3 s High 11.7-14.9 [facility] International normalized rat io (INR) calculationOrdered By: [employer] on 03-27-2024 INR Coag (Bld) [Relative time] 2.2 {INR} [facility] Prothrombin Time w/INRon INR Coag (PPP) [Relative time] 2.2 {INR} Normal [facility] Comment on above: Order Comment: 411.2 Performed By: #### L 300.3900 ####[facility] [address] [place], [address] PT Coag (PPP) [Time] 24.3 s High 11.7-14.9 [facility] Comment on above: Order Comment: 411.2 Performed By: #### L [id number] ####[facility] [address] [place], [address] Prothrombin timeOrdered By: [employer] on 03-27-2024 PT Coag (PPP) [Time] 24.3 s High 11.7-14.9 [facility] International normalized rat io (INR) calculationOrdered By: Kvng Crisostomo on 03-24-2024 INR Coag (Bld) [Relative time] 1.8 {INR} [facility] Prothrombin Time w/INRon INR Coag (PPP) [Relative time] 1.8 {INR} Normal [facility] Comment on above: Order Comment: 411.2 Performed By: #### L 300.3900 ####[facility] [address] [place], [address] PT Coag (PPP) [Time] 20.7 s High 11.7-14.9 [facility] Comment on above: Order Comment: 411.2 Performed By: #### L 300.3900 ####[facility] [address] [place], [address] Prothrombin timeOrdered By: Kvng Crisostomo on 03-24-2024 PT Coag (PPP) [Time] 20.7 s High 11.7-14.9 [facility] International normalized rat io (INR) calculationOrdered By: [employer] on 03-20-2024 INR Coag (Bld) [Relative time] 1.8 {INR} [facility] Prothrombin Time w/INRon INR Coag (PPP) [Relative time] 1.8 {INR} Normal [facility] Comment on above: Order Comment: 411.2 Performed By: #### L 300.3900 ####[facility] [address] [place], [address] PT Coag (PPP) [Time] 20.9 s High 11.7-14.9 [facility] Comment on above: Order Comment: 411.2 Performed By: #### L 300.3900 ####[facility] [address] [place], [address] Prothrombin timeOrdered By: [employer] on 03-20-2024 PT Coag (PPP) [Time] 20.9 s High 11.7-14.9 [facility] International normalized rat io (INR) calculationOrdered By: Kvng Crisostomo on 03-19-2024 INR Coag (Bld) [Relative time] 2.4 {INR} [facility] Prothrombin Time w/INRon INR Coag (PPP) [Relative time] 2.4 {INR} Normal [facility] Comment on above: Order Comment: 411.2 Performed By: #### L 300.3900 ####[facility] [address] [place], [address] PT Coag (PPP) [Time] 26.4 s High 11.7-14.9 [facility] Comment on above: Order Comment: 411.2 Performed By: #### L 300.3900 ####[facility] [address] [place], [address] Prothrombin timeOrdered By: Kvng Crisostomo on 03-19-2024 PT Coag (PPP) [Time] 26.4 s High 11.7-14.9 [facility] International normalized rat io (INR) calculationOrdered By: [employer] on 03-18-2024 INR Coag (Bld) [Relative time] 3.2 {INR} [facility] Prothrombin timeOrdered By: [employer] on 03-18-2024 PT Coag (PPP) [Time] 32.3 s High 11.7-14.9 [facility] International normalized rat io (INR) calculationOrdered By: [employer] on 03-17-2024 INR Coag (Bld) [Relative time] 3.6 {INR} [facility] Prothrombin timeOrdered By: [employer] on 03-17-2024 PT Coag (PPP) [Time] 35.7 s High 11.7-14.9 [facility] International normalized rat io (INR) calculationOrdered By: Carlos Cavazos on 03-14-2024 INR Coag (Bld) [Relative time] 3.5 {INR} [facility] Prothrombin timeOrdered By: Carlos Cavazos on 03-14-2024 PT Coag (PPP) [Time] 35.0 s High 11.7-14.9 [facility] International normalized rat io (INR) calculationOrdered By: [employer] on 03-13-2024 INR Coag (Bld) [Relative time] 3.2 {INR} [facility] Prothrombin timeOrdered By: [employer] on 03-13-2024 PT Coag (PPP) [Time] 32.2 s High 11.7-14.9 [facility] Office Visiton 09-13-2023 Follow-up visit [id number] GurpreetTamie 1950 M [address] Provider Department Center 09/13/2023 [id number] BUCK [facility] None Family History Problem Relation Age of Onset Heart disease Father Cancer Mother Family Status - Relation Status Age at Father Mother Level of Service:65015 [place] OFFICE/OUTPATIENT ESTABLISHED MOD MDM 30 MIN Reason for Visit and Comments: left flank pain [Other] - 8/10 pain when touched Normal [facility] Progress Noteon 09-13-2023 Progress Note [...] Hydrocephalus, adult (CMS/HCC) (HCC) Kidney stone Neuropathy SHOE RECONDITIONER (ventriculoperitoneal) shunt status Past Surgical History: Procedure [...] 03/02/2022 CR (more content not included)... Normal [facility] CT ABDOMEN PELVIS WO IV CONT Kelly 09-07-2023 CT ABDOMEN PELVIS WO IV CONTRAST [facility] Name[facility] 1950 [id number] Exam Date/Time: 09/06/2023 18:14 Procedure: CT ABDOMEN [...] a kidney stone; pt has a hernia [facility] 36on 08-29-2023 36 Lm on daughters vm t o advise them to call the number for the auto body shop manager to get clarification, and to call back with further questions [place] [address]on 08-27-2023 36 Yes, they will need to call the number given to them. [facility] 36 Please advise [address] 08-21-2023 36 Name of caller: Zion holt Contact phone number: [phone] Relationship to Patient: patient Provider: MD Quinn Practice: [facility] Urology Chief Complaint/Reason for Call: Shanthi called [...] to reach out to call Maury Cedeño Casual Shoe Inspector at [facility] [phone] to get clarifications. TEA did reach back out to [facility] and advised and provider Maury's #. Please advise Best time of day caller can be reached: Any Patient advised that office/PCP has 24-48 business hours to return their call: N/A Normal [facility] Laboratory - CoagulationOrde red By: Carlos Cavazos on 08-21-2023 INR Coag (Bld) [Relative time] 2.7 {INR} [facility] PT Coag (PPP) [Time] 28.9 s 11.7-14.9 [facility] Office Visiton 08-13-2023 Follow-up visit [id number] Tamie Sifuentes cheng Gonzalez 1950 M [address] Provider Department Center 08/13/2023 [id number] BUCK [facility] None Family History Problem Relation Age of Onset Heart disease Father Cancer Mother Family Status - Relation Status Age at Father Mother Level of Service:00831 [place] OFFICE/OUTPATIENT NEW MODERATE MDM 45 MINUTES Reason for Visit and Comments: New Patient [542] - Bilateral flank pain, hx of kidney stones Nephrolithiasis [970352] Normal [facility] Progress Noteon 08-13-2023 Progress Note [...] Hydrocephalus, adult (CMS/HCC) (HCC) Kidney stone Neuropathy SHOE RECONDITIONER (ventriculoperitoneal) shunt status Past Surgical History: Past [...] CT ab (more content not included)... Normal [facility] No Panel InformationOrdered By: Carlos Cavazos on 08-03-2023 Levetiracetam (Keppra) Level 32.4 ug/mL 10.0-40.0 [facility] Comment on above: Performed at: [address] [id number] Director: Alpesh Vázquez MD, Phone: [phone] Basophil percentageOrdered B y: Carlos Cavazos on 07-20-2023 Chloride [Moles/Vol] 106 mmol/L 98-107 [facility] Glucose [Mass/Vol] 98 mg/dL 74-106 [facility] Hemoglobin (Bld) [Mass/Vol] 12.5 g/dL 13.0-16.5 [facility] Potassium [Moles/Vol] 4.3 mmol/L 3.5-5.1 [facility] Sodium [Moles/Vol] 135 mmol/L 136-145 [facility] WBC (Bld) [#/Vol] 13.0 10*3/uL 4.4-11.0 [facility] Determination of erythrocyte mean corpuscular volume (MCV)Ordered By: Carlos Cavazos on 07-20-2023 MCV (RBC) [Entitic vol] 86.2 fL 80-94 [facility] Erythrocyte distribution wid th ratioOrdered By: Carlos Cavazos on 07-20-2023 Erythrocyte distribution width (RBC) [Ratio] 15.3 % 11.6-14.6 [facility] Erythrocyte distribution wid th standard deviationOrdered By: Carlos Cavazos on 07-20-2023 Erythrocyte distribution width (RBC) [Entitic vol] 48.1 fL 35.1-43.9 [facility] Hematocrit Auto (Bld) [Volum e fraction]Ordered By: Carlos Cavazos on 07-20-2023 Hematocrit (Bld) [Volume fraction] 39.9 % 40-54 [facility] Laboratory - Chemistry and C hemistry - challengeOrdered By: Carlos Cavazos on 07-20-2023 CO2 [Moles/Vol] 24.0 mmol/L 21.0-32.0 [facility] Urea nitrogen/Creatinine [Mass ratio] 24.6 mg/mg 10-20 [facility] Laboratory - Hematology and Cell countsOrdered By: Carlos Cavazos on 07-20-2023 MCH (RBC) [Entitic mass] 27.0 pg 27.0-32.0 [facility] MCHC (RBC) [Mass/Vol] 31.3 g/dL 32-36 [facility] Platelet mean volume (Bld) [Entitic vol] 10.7 fL 6.2-12.0 [facility] Platelets (Bld) [#/Vol] 260 10*3/uL 150-450 [facility] No Panel InformationOrdered By: Carlos Cavazos on 03-15-2024 Estimated GFR (MDRD) Amer 114 mL/min >60 [facility] Comment on above: GFR Calc Estimated GFR (MDRD) Non-Af Amer 94 mL/min >60 [facility] Comment on above: Non- GFR Calc RBC Auto (Bld) [#/Vol]Ordere d By: Carlos Cavazos on 07-20-2023 RBC (Bld) [#/Vol] 4.63 10*6/uL 4.6-6.2 [facility] Serum or plasma calcium oral urement (mass/volume)Ordered By: Carlos Cavazos on 07-20-2023 Calcium [Mass/Vol] 8.6 mg/dL 8.5-10.1 [facility] Serum or plasma creatinine m easurement (mass/volume)Ordered By: Carlos Cavazos on 07-20-2023 Creatinine [Mass/Vol] 0.85 mg/dL 0.70-1.30 [facility] Comment on above: The validity of the calculated GFR & GFRAA in patients over 70 years has not been determined. Clinical correlation is essential. Serum or plasma urea nitroge n measurement (mass/volume)Ordered By: Carlos Cavazos on 07-20-2023 Urea nitrogen [Mass/Vol] 21 mg/dL 7-18 [facility] Thin prep Papanicolaou smear with manual screeningOrdered By: Carlos Cavazos on 07-20-2023 Thin prep Papanicolaou smear with manual screening 5 5-15 [facility] Basophil percentageOrdered B y: Carlos Cavazos on 07-18-2023 Chloride [Moles/Vol] 102 mmol/L 98-107 [facility] Glucose [Mass/Vol] 96 mg/dL 74-106 [facility] Hemoglobin (Bld) [Mass/Vol] 12.3 g/dL 13.0-16.5 [facility] Potassium [Moles/Vol] 4.2 mmol/L 3.5-5.1 [facility] Sodium [Moles/Vol] 136 mmol/L 136-145 [facility] WBC (Bld) [#/Vol] 14.7 10*3/uL 4.4-11.0 [facility] Determination of erythrocyte mean corpuscular volume (MCV)Ordered By: Carlos Cavazos on 07-18-2023 MCV (RBC) [Entitic vol] 85.4 fL 80-94 [facility] Erythrocyte distribution wid th ratioOrdered By: Carlos Cavazos on 07-18-2023 Erythrocyte distribution width (RBC) [Ratio] 15.1 % 11.6-14.6 [facility] Erythrocyte distribution wid th standard deviationOrdered By: Carlos Cavazos on 07-18-2023 Erythrocyte distribution width (RBC) [Entitic vol] 47.3 fL 35.1-43.9 [facility] Hematocrit Auto (Bld) [Volum e fraction]Ordered By: Carlos Cavazos on 07-18-2023 Hematocrit (Bld) [Volume fraction] 39.3 % 40-54 [facility] Laboratory - Chemistry and C hemistry - challengeOrdered By: Carlos Cavazos on 07-18-2023 CO2 [Moles/Vol] 27.0 mmol/L 21.0-32.0 [facility] Urea nitrogen/Creatinine [Mass ratio] 24.4 mg/mg 10-20 [facility] Laboratory - Hematology and Cell countsOrdered By: Carlos Cavazos on 07-18-2023 MCH (RBC) [Entitic mass] 26.7 pg 27.0-32.0 [facility] MCHC (RBC) [Mass/Vol] 31.3 g/dL 32-36 [facility] Platelet mean volume (Bld) [Entitic vol] 10.3 fL 6.2-12.0 [facility] Platelets (Bld) [#/Vol] 288 10*3/uL 150-450 [facility] No Panel InformationOrdered By: Carlos Cavazos on 07-18-2023 Estimated GFR (MDRD) Amer 113 mL/min >60 [facility] Comment on above: GFR Calc Estimated GFR (MDRD) Non-Af Amer 93 mL/min >60 [facility] Comment on above: Non- GFR Calc RBC Auto (Bld) [#/Vol]Ordere d By: Carlos Cavazos on 07-18-2023 RBC (Bld) [#/Vol] 4.60 10*6/uL 4.6-6.2 [facility] Serum or plasma calcium oral urement (mass/volume)Ordered By: Carlos Cavazos on 07-18-2023 Calcium [Mass/Vol] 8.9 mg/dL 8.5-10.1 [facility] Serum or plasma creatinine m easurement (mass/volume)Ordered By: Carlos Cavazos on 07-18-2023 Creatinine [Mass/Vol] 0.86 mg/dL 0.70-1.30 [facility] Comment on above: The validity of the calculated GFR & GFRAA in patients over 70 years has not been determined. Clinical correlation is essential. Serum or plasma urea nitroge n measurement (mass/volume)Ordered By: Carlos Cavazos on 07-18-2023 Urea nitrogen [Mass/Vol] 21 mg/dL 7-18 [facility] Thin prep Papanicolaou smear with manual screeningOrdered By: Carlos Cavazos on 07-18-2023 Thin prep Papanicolaou smear with manual screening 7 5-15 [facility] Basophil percentageOrdered B y: Carlos Cavazos on 07-17-2023 Basophil percentage 0-5 SEEN /hpf 0-5 [facility] Bilirubin Test strip Ql (U)O rdered By: Carlos Cavazos on 07-17-2023 Bilirubin Ql (U) Negative Negative [facility] Calcium oxalate crystals det ection in urine sediment by light microscopyOrdered By: Carlos Cavazos on 07-17-2023 Calcium oxalate crystals LM Ql (Urine sed) 1+ /hpf [facility] Culture, urineOrdered By: Sharif Crouch on 07-17-2023 Bacteria identified Cx Nom (U) Positive [facility] Ketones Test strip Ql (U)Ord ered By: Carlos Cavazos on 07-17-2023 Ketones Ql (U) Negative Negative [facility] Mucus LM Ql (Urine sed)Order ed By: Carlos Cavazos on 07-17-2023 Mucus Ql (Urine sed) 0 SEEN /hpf [facility] Nitrite Test strip Ql (U)Ord ered By: Calros Cavazos on 07-17-2023 Nitrite Ql (U) Negative Negative [facility] No Panel InformationOrdered By: Carlos Cavazos on 07-17-2023 Urine RBC 0 SEEN /hpf 0-5 [facility] Protein Test strip Ql (U)Ord ered By: Carlos Cavazos on 07-17-2023 Protein Ql (U) Negative Negative [facility] Squamous epithelial cells de tection in urine sediment by light microscopyOrdered By: Carlos Cavazos on 07-17-2023 Epithelial cells.squamous LM Ql (Urine sed) 0-5 SEEN /hpf 0-5 [facility] Urine blood detectionOrdered By: Carlos Cavazos on 07-17-2023 RBC Ql (U) Negative Negative [facility] Urine clarityOrdered By: Ted Cavazos on 07-17-2023 Clarity (U) Clear Clear [facility] Urine color determinationOrd ered By: Carlos Cavazos on 07-17-2023 Color (U) Yellow Yellow [facility] Urine glucose detectionOrder ed By: Carlos Cavazos on 07-17-2023 Glucose Ql (U) Normal mg/dl Normal [facility] Urine leukocyte esterase det ection by dipstickOrdered By: Carlos Cavazos on 07-17-2023 Leukocyte esterase Test strip Ql (U) 25 /ul Negative [facility] Urine pHOrdered By: Carlos flores on 07-17-2023 pH (U) 6.0 [pH] 5.0 - 8.0 [facility] Urine sediment bacteria coun t by microscopy (number/high power field)Ordered By: Carlos Cavazos on 07-17-2023 Bacteria LM.HPF (Urine sed) [#/Area] 0 /[HPF] None Seen [facility] Urine specific gravity measu rementOrdered By: Carlos Cavazos on 07-17-2023 Specific gravity (U) [Rel density] 1.020 1.002-1.030 [facility] Urine urobilinogen measureme ntOrdered By: Carlos Cavazos on 07-17-2023 Urobilinogen Ql (U) Normal mg/dl Normal [facility] Absolute lymphocyte countOrd ered By: Carlos Cavazos on 07-16-2023 Lymphocytes Auto (Unsp spec) [#/Vol] 6.02 10*3/uL 0.83-4.51 [facility] Automated lymphocyte count a s percentage of total leukocytesOrdered By: Carlos Cavazos on 07-16-2023 Lymphocytes/100 WBC Auto (Unsp spec) 49.1 % 19-41 [facility] Basophil percentageOrdered B y: Carlos Cavazos on 07-16-2023 Basophils/100 WBC (Bld) 0.6 % 0-1 [facility] Chloride [Moles/Vol] 105 mmol/L 98-107 [facility] Eosinophils/100 WBC (Bld) 2.0 % 0-5 [facility] Glucose [Mass/Vol] 93 mg/dL 74-106 [facility] Hemoglobin (Bld) [Mass/Vol] 12.1 g/dL 13.0-16.5 [facility] Monocytes/100 WBC (Bld) 5.3 % 0-10 [facility] Neutrophils (Bld) [#/Vol] 5.2 10*3/uL 2.0-7.7 [facility] Neutrophils/100 WBC (Bld) 42.8 % 47-70 [facility] Potassium [Moles/Vol] 4.3 mmol/L 3.5-5.1 [facility] Sodium [Moles/Vol] 138 mmol/L 136-145 [facility] WBC (Bld) [#/Vol] 12.3 10*3/uL 4.4-11.0 [facility] Blood manual differential co mment interpretation (narrative result)Ordered By: Carlos Cavazos on 07-16-2023 Manual differential comment Shemar (Bld) [Interp] SCANNED [facility] Determination of erythrocyte mean corpuscular volume (MCV)Ordered By: Carlos Cavazos on 07-16-2023 MCV (RBC) [Entitic vol] 86.8 fL 80-94 [facility] Erythrocyte distribution wid th ratioOrdered By: Carlos Cavazos on 07-16-2023 Erythrocyte distribution width (RBC) [Ratio] 15.3 % 11.6-14.6 [facility] Erythrocyte distribution wid th standard deviationOrdered By: Carlos Cavazos on 07-16-2023 Erythrocyte distribution width (RBC) [Entitic vol] 48.9 fL 35.1-43.9 [facility] Hematocrit Auto (Bld) [Volum e fraction]Ordered By: Carlos Cavazos on 07-16-2023 Hematocrit (Bld) [Volume fraction] 38.7 % 40-54 [facility] Immature granulocytes/100 WB C Auto (Bld)Ordered By: Carlos Cavazos on 07-16-2023 Immature granulocytes/100 WBC (Bld) 0.200 % 0.0-0.9 [facility] Comment on above: IG% - Immature Granu locytes (promyelocytes, myelocytes and metamyelocytes) > 1% indicates that a LEFT SHIFT is Present. Laboratory - Chemistry and C hemistry - challengeOrdered By: Carlos Cavazos on 07-16-2023 CO2 [Moles/Vol] 25.0 mmol/L 21.0-32.0 [facility] Urea nitrogen/Creatinine [Mass ratio] 21.0 mg/mg 10-20 [facility] Laboratory - CoagulationOrde red By: Carlos Cavazos on 07-16-2023 INR Coag (Bld) [Relative time] 2.4 {INR} [facility] PT Coag (PPP) [Time] 25.7 s 11.7-14.9 [facility] Laboratory - Hematology and Cell countsOrdered By: Carlos Cavazos on 07-16-2023 MCH (RBC) [Entitic mass] 27.1 pg 27.0-32.0 [facility] MCHC (RBC) [Mass/Vol] 31.3 g/dL 32-36 [facility] Nucleated RBC/100 WBC (Bld) [Ratio] 0 % 0-5 [facility] Platelet mean volume (Bld) [Entitic vol] 10.5 fL 6.2-12.0 [facility] Platelets (Bld) [#/Vol] 289 10*3/uL 150-450 [facility] No Panel InformationOrdered By: Carlos Cavazos on 07-16-2023 Estimated GFR (MDRD) Amer 106 mL/min >60 [facility] Comment on above: GFR Calc Estimated GFR (MDRD) Non-Af Amer 88 mL/min >60 [facility] Comment on above: Non- GFR Calc Reactive Lymphocytes 1+ [facility] RBC Auto (Bld) [#/Vol]Ordere d By: Carlos Cavazos on 07-16-2023 RBC (Bld) [#/Vol] 4.46 10*6/uL 4.6-6.2 [facility] Serum or plasma calcium oral urement (mass/volume)Ordered By: Carlos Cavazos on 07-16-2023 Calcium [Mass/Vol] 9.0 mg/dL 8.5-10.1 [facility] Serum or plasma creatinine m easurement (mass/volume)Ordered By: Carlos Cavazos on 07-16-2023 Creatinine [Mass/Vol] 0.90 mg/dL 0.70-1.30 [facility] Comment on above: The validity of the calculated GFR & GFRAA in patients over 70 years has not been determined. Clinical correlation is essential. Serum or plasma urea nitroge n measurement (mass/volume)Ordered By: Carlos Cavazos on 07-16-2023 Urea nitrogen [Mass/Vol] 19 mg/dL 7-18 [facility] Thin prep Papanicolaou smear with manual screeningOrdered By: Carlos Cavazos on 07-16-2023 Thin prep Papanicolaou smear with manual screening 8 5-15 [facility] Absolute lymphocyte countOrd ered By: Carlos Cavazos on 07-13-2023 Lymphocytes Auto (Unsp spec) [#/Vol] 5.44 10*3/uL 0.83-4.51 [facility] Automated lymphocyte count a s percentage of total leukocytesOrdered By: Carlos Cavazos on 07-13-2023 Lymphocytes/100 WBC Auto (Unsp spec) 47.3 % 19-41 [facility] Basophil percentageOrdered B y: Carlos Cavazos on 07-13-2023 Basophils/100 WBC (Bld) 0.4 % 0-1 [facility] Chloride [Moles/Vol] 107 mmol/L 98-107 [facility] Eosinophils/100 WBC (Bld) 1.7 % 0-5 [facility] Glucose [Mass/Vol] 96 mg/dL 74-106 [facility] Hemoglobin (Bld) [Mass/Vol] 13.5 g/dL 13.0-16.5 [facility] Monocytes/100 WBC (Bld) 4.3 % 0-10 [facility] Neutrophils (Bld) [#/Vol] 5.3 10*3/uL 2.0-7.7 [facility] Neutrophils/100 WBC (Bld) 46.0 % 47-70 [facility] Potassium [Moles/Vol] 4.0 mmol/L 3.5-5.1 [facility] Sodium [Moles/Vol] 139 mmol/L 136-145 [facility] WBC (Bld) [#/Vol] 11.5 10*3/uL 4.4-11.0 [facility] Determination of erythrocyte mean corpuscular volume (MCV)Ordered By: Carlos Cavazos on 07-13-2023 MCV (RBC) [Entitic vol] 86.1 fL 80-94 [facility] Erythrocyte distribution wid th ratioOrdered By: Carols Cavazos on 07-13-2023 Erythrocyte distribution width (RBC) [Ratio] 15.2 % 11.6-14.6 [facility] Erythrocyte distribution wid th standard deviationOrdered By: Carols Cavazos on 07-13-2023 Erythrocyte distribution width (RBC) [Entitic vol] 48.0 fL 35.1-43.9 [facility] Hematocrit Auto (Bld) [Volum e fraction]Ordered By: Carlos Cavazos on 07-13-2023 Hematocrit (Bld) [Volume fraction] 42.2 % 40-54 [facility] Immature granulocytes/100 WB C Auto (Bld)Ordered By: Carlos Cavazos on 07-13-2023 Immature granulocytes/100 WBC (Bld) 0.300 % 0.0-0.9 [facility] Comment on above: IG% - Immature Granu locytes (promyelocytes, myelocytes and metamyelocytes) > 1% indicates that a LEFT SHIFT is Present. Laboratory - Chemistry and C hemistry - challengeOrdered By: Carlos Cavazos on 07-13-2023 CO2 [Moles/Vol] 26.0 mmol/L 21.0-32.0 [facility] Urea nitrogen/Creatinine [Mass ratio] 21.8 mg/mg 10-20 [facility] - Hematology and Cell countsOrdered By: Carlos Cavazos on 07-13-2023 MCH (RBC) [Entitic mass] 27.6 pg 27.0-32.0 [facility] MCHC (RBC) [Mass/Vol] 32.0 g/dL 32-36 [facility] Nucleated RBC/100 WBC (Bld) [Ratio] 0 % 0-5 [facility] Platelet mean volume (Bld) [Entitic vol] 10.1 fL 6.2-12.0 [facility] Platelets (Bld) [#/Vol] 279 10*3/uL 150-450 [facility] No Panel InformationOrdered By: Carlos Cavazos on 07-13-2023 Estimated GFR (MDRD) Amer 118 mL/min >60 [facility] Comment on above: GFR Calc Estimated GFR (MDRD) Non-Af Amer 98 mL/min >60 [facility] Comment on above: Non- GFR Calc Levetiracetam (Keppra) Level 25.5 ug/mL 10.0-40.0 [facility] Comment on above: Performed at: [facility] [address] [id number] Director: Alpesh Vázquez MD, Phone: [phone] RBC Auto (Bld) [#/Vol]Ordere d By: Carlos Cavazos on 07-13-2023 RBC (Bld) [#/Vol] 4.90 10*6/uL 4.6-6.2 [facility] Serum or plasma calcium oral urement (mass/volume)Ordered By: Carlos Cavazos on 07-13-2023 Calcium [Mass/Vol] 9.1 mg/dL 8.5-10.1 [facility] Serum or plasma creatinine m easurement (mass/volume)Ordered By: Carlos Cavazos on 07-13-2023 Creatinine [Mass/Vol] 0.82 mg/dL 0.70-1.30 [facility] Comment on above: The validity of the calculated GFR & GFRAA in patients over 70 years has not been determined. Clinical correlation is essential. Serum or plasma urea nitroge n measurement (mass/volume)Ordered By: Carlos Cavazos on 07-13-2023 Urea nitrogen [Mass/Vol] 18 mg/dL 7-18 [facility] Thin prep Papanicolaou smear with manual screeningOrdered By: Carlos Cavazos on 07-13-2023 Thin prep Papanicolaou smear with manual screening 6 5-15 [facility] No Panel InformationOrdered By: Carlos Cavazos on 07-12-2023 Valproic Acid (Depakene) Level < 3 ug/mL 50-100 [facility] - CoagulationOrde red By: Carlos Cavazos on 07-05-2023 INR Coag (Bld) [Relative time] 2.4 {INR} [facility] PT Coag (PPP) [Time] 26.3 s 11.7-14.9 [facility] - CoagulationOrde red By: Carlos Cavazos on 07-02-2023 INR Coag (Bld) [Relative time] 1.5 {INR} [facility] PT Coag (PPP) [Time] 18.5 s 11.7-14.9 [facility] - CoagulationOrde red By: Carlos Cavazos on 06-28-2023 INR Coag (Bld) [Relative time] 1.7 {INR} [facility] PT Coag (PPP) [Time] 20.5 s 11.7-14.9 [facility] 36on 06-25-2023 36 [facility] called in stating appt scheduled 07/10/23 [place] has to be made further out, pt being transported by cot. Changed appt to 08/13/23 per [facility] only avail time for transport, first avail with DR Buck at 10:00 AM. [facility] - CoagulationOrde red By: Carlos Cavazos on 06-25-2023 INR Coag (Bld) [Relative time] 3.8 {INR} [facility] PT Coag (PPP) [Time] 38.2 s 11.7-14.9 [facility] - CoagulationOrde red By: Carlos Cavazos on 06-21-2023 INR Coag (Bld) [Relative time] 3.2 {INR} [facility] PT Coag (PPP) [Time] 32.9 s 11.7-14.9 [facility] No Panel InformationOrdered By: Carlos Cavazos on 06-13-2023 Valproic Acid (Depakene) Level < 3 ug/mL 50-100 [facility] - CoagulationOrde red By: Carlos Cavazos on 06-06-2023 PT Coag (PPP) [Time] 30.5 s 11.7-14.9 [facility] Platelet poor plasma interna tional normalized ratio (INR)Ordered By: Carlos Cavazos on 06-06-2023 INR Coag (PPP) [Relative time] 2.9 {INR} [facility] International normalized rat io (INR) calculationOrdered By: Carlos Cavazos on 05-23-2023 INR Coag (PPP) [Relative time] 2.6 {INR} [facility] - CoagulationOrde red By: Carlos Cavazos on 05-23-2023 PT Coag (PPP) [Time] 27.7 s 11.7-14.9 [facility] - CoagulationOrde red By: Carlos Cavazos on 05-09-2023 PT Coag (PPP) [Time] 24.1 s 11.7-14.9 [facility] Whole blood international no rmalized ratio (INR)Ordered By: Carlos Cavazos on 05-09-2023 INR Coag (Bld) [Relative time] 2.1 {INR} [facility] - CoagulationOrde red By: Carlos Cavazos on 04-23-2023 PT Coag (PPP) [Time] 26.4 s 11.7-14.9 [facility] Whole blood international no rmalized ratio (INR)Ordered By: Carlos Cavazos on 04-23-2023 INR Coag (Bld) [Relative time] 2.4 {INR} [facility] INR in Blood by Coagulation assayOrdered By: Carlos Cavazos on 04-09-2023 INR Coag (Bld) [Relative time] 2.1 {INR} [facility] - CoagulationOrde red By: Carlos Cavazos on 04-09-2023 PT Coag (PPP) [Time] 23.9 s 11.7-14.9 [facility] INR in Blood by Coagulation assayOrdered By: Carlos Cavazos on 04-02-2023 INR Coag (Bld) [Relative time] 2.2 {INR} [facility] - CoagulationOrde red By: Carlos Cavazos on 04-02-2023 PT Coag (PPP) [Time] 24.5 s 11.7-14.9 [facility] INR in Blood by Coagulation assayOrdered By: Carlos Cavazos on 03-26-2023 INR Coag (Bld) [Relative time] 1.7 {INR} [facility] - CoagulationOrde red By: Carlos Cavazos on 03-26-2023 PT Coag (PPP) [Time] 19.9 s 11.7-14.9 [facility] INR in Blood by Coagulation assayOrdered By: Carlos Cavazos on 03-22-2023 INR Coag (Bld) [Relative time] 1.3 {INR} [facility] - CoagulationOrde red By: Carlos Cavazos on 03-22-2023 PT Coag (PPP) [Time] 16.4 s 11.7-14.9 [facility] INR in Blood by Coagulation assayOrdered By: Carlos Cavazos on 03-08-2023 INR Coag (Bld) [Relative time] 2.0 {INR} [facility] - CoagulationOrde red By: Carlos Cavazos on 03-08-2023 PT Coag (PPP) [Time] 22.5 s 11.7-14.9 [facility] - CoagulationOrde red By: Carlos Cavazos on 02-22-2023 INR Coag (Bld) [Relative time] 2.2 {INR} [facility] Comment on above: Critical Value > 4.0 Whole blood prothrombin time Ordered By: Carlos Cavazos on 02-22-2023 PT Coag (Bld) [Time] 24.0 s 11.7-14.9 [facility] INR in Blood by Coagulation assayOrdered By: Cliff Bruner on 02-15-2023 INR Coag (Bld) [Relative time] 2.0 {INR} [facility] - CoagulationOrde red By: Cliff Bruner on 02-15-2023 PT Coag (PPP) [Time] 22.8 s 11.7-14.9 [facility] INR in Blood by Coagulation assayOrdered By: Carlos Cavazos on 02-08-2023 INR Coag (Bld) [Relative time] 2.1 {INR} [facility] - CoagulationOrde red By: Carlos Cavazos on 02-08-2023 PT Coag (PPP) [Time] 23.5 s 11.7-14.9 [facility] INR in Blood by Coagulation assayOrdered By: Carlos Cavazos on 01-31-2023 INR Coag (Bld) [Relative time] 2.0 {INR} [facility] - CoagulationOrde red By: Carlos Cavazos on 01-31-2023 PT Coag (PPP) [Time] 22.4 s 11.7-14.9 [facility] - CoagulationOrde red By: Carlos Cavazos on 01-29-2023 INR Coag (Bld) [Relative time] 1.8 {INR} [facility] Comment on above: Critical Value > 4.0 Whole blood prothrombin time Ordered By: Carlos Cavazos on 01-29-2023 PT Coag (Bld) [Time] 19.9 s 11.7-14.9 [facility] INR in Blood by Coagulation assayOrdered By: Carlos Cavazos on 01-26-2023 INR Coag (Bld) [Relative time] 1.5 {INR} [facility] - CoagulationOrde red By: Carlos Cavazos on 01-26-2023 PT Coag (PPP) [Time] 18.3 s 11.7-14.9 [facility] INR in Blood by Coagulation assayOrdered By: Carlos Cavazos on 01-24-2023 INR Coag (Bld) [Relative time] 1.3 {INR} [facility] - CoagulationOrde red By: Carlos Cavazos on 01-24-2023 PT Coag (PPP) [Time] 16.2 s 11.7-14.9 [facility] Basophil percentageOrdered B y: Carlos Cavazos on 01-22-2023 Basophil percentage 0 SEEN /hpf 0-5 [facility] Bilirubin Test strip Ql (U)O rdered By: Carlos Cavazos on 01-22-2023 Bilirubin Ql (U) Negative Negative [facility] Calcium oxalate crystals det ection in urine sediment by light microscopyOrdered By: Carlos Cavazos on 01-22-2023 Calcium oxalate crystals LM Ql (Urine sed) 1+ /hpf [facility] Culture, urineOrdered By: Sharif Crouch on 01-22-2023 Bacteria identified Cx Nom (U) Positive [facility] Ketones Test strip Ql (U)Ord ered By: Carlos Cavazos on 01-22-2023 Ketones Ql (U) Negative Negative [facility] Mucus LM Ql (Urine sed)Order ed By: Carlos Cavazos on 01-22-2023 Mucus Ql (Urine sed) 1+ /hpf [facility] Nitrite Test strip Ql (U)Ord ered By: Carlos Cavazos on 01-22-2023 Nitrite Ql (U) Negative Negative [facility] Protein Test strip Ql (U)Ord ered By: Carlos Cavazos on 01-22-2023 Protein Ql (U) Negative Negative [facility] Squamous epithelial cells de tection in urine sediment by light microscopyOrdered By: Carlos Cavazos on 01-22-2023 Epithelial cells.squamous LM Ql (Urine sed) 0 SEEN /hpf 0-5 [facility] Urine blood detectionOrdered By: Carlos Cavazos on 01-22-2023 RBC Ql (U) Negative Negative [facility] RBC Ql (U) 0 SEEN /hpf 0-5 [facility] Urine clarityOrdered By: Ted Cavazos on 01-22-2023 Clarity (U) Sl. Cloudy Clear [facility] Urine color determinationOrd ered By: Carlos Cavazos on 01-22-2023 Color (U) Yellow Yellow [facility] Urine glucose detectionOrder ed By: Carlos Cavazos on 01-22-2023 Glucose Ql (U) Normal mg/dl Normal [facility] Urine leukocyte esterase det ection by dipstickOrdered By: Carlos Cavazos on 01-22-2023 Leukocyte esterase Test strip Ql (U) Negative Negative [facility] Urine pHOrdered By: Carlos flores on 01-22-2023 pH (U) 5.0 [pH] 5.0 - 8.0 [facility] Urine sediment bacteria coun t by microscopy (number/high power field)Ordered By: Carlos Cavazos on 01-22-2023 Bacteria LM.HPF (Urine sed) [#/Area] 2 /[HPF] None Seen [facility] Urine specific gravity measu rementOrdered By: Carlos Cavazos on 01-22-2023 Specific gravity (U) [Rel density] 1.025 1.002-1.030 [facility] Urobilinogen Auto test strip Ql (U)Ordered By: Carlos Cavazos on 01-22-2023 Urobilinogen Ql (U) Normal mg/dl Normal [facility] INR in Blood by Coagulation assayOrdered By: Carlos Cavazos on 01-10-2023 INR Coag (Bld) [Relative time] 2.0 {INR} [facility] - CoagulationOrde red By: Carlos Cavazos on 01-10-2023 PT Coag (PPP) [Time] 22.6 s 11.7-14.9 [facility] INR in Blood by Coagulation assayOrdered By: Carlos Cavazos on 12-27-2022 INR Coag (Bld) [Relative time] 2.1 {INR} [facility] - CoagulationOrde red By: Carlos Cavazos on 12-27-2022 PT Coag (PPP) [Time] 24.1 s 11.7-14.9 [facility] INR in Blood by Coagulation assayOrdered By: Carlos Cavazos on 12-21-2022 INR Coag (Bld) [Relative time] 2.4 {INR} [facility] - CoagulationOrde red By: Carlos Cavazos on 12-21-2022 PT Coag (PPP) [Time] 26.7 s 11.7-14.9 [facility] - CoagulationOrde red By: Carlos Cavazos on 12-14-2022 INR Coag (Bld) [Relative time] 2.3 {INR} [facility] Comment on above: Critical Value > 4.0 Whole blood prothrombin time Ordered By: Carlos Cavazos on 12-14-2022 PT Coag (Bld) [Time] 25.2 s 11.7-14.9 [facility] - CoagulationOrde red By: Carlos Cavazos on 12-07-2022 INR Coag (Bld) [Relative time] 2.5 {INR} [facility] Comment on above: Critical Value > 4.0 Whole blood prothrombin time Ordered By: Carlos Cavazos on 12-07-2022 PT Coag (Bld) [Time] 26.9 s 11.7-14.9 [facility] Amorphous sediment detection in urine sediment by light microscopyOrdered By: Carlos Cavazos on 07-21-2023 Amorphous sediment LM Ql (Urine sed) 1+ [facility] Basophil percentageOrdered B y: Carlos Cavazos on 11-24-2022 Basophil percentage 0 SEEN /hpf 0-5 [facility] Bilirubin [Mass/Vol] 0.30 mg/dL 0.20-1.00 [facility] Comment on above: For patients on eltr ombopag therapy, use of [employer] [place] TBIL is not recommended. Chloride [Moles/Vol] 107 mmol/L 98-107 [facility] Glucose [Mass/Vol] 95 mg/dL 74-106 [facility] Potassium [Moles/Vol] 4.2 mmol/L 3.5-5.1 [facility] Protein [Mass/Vol] 6.9 g/dL 6.4-8.2 [facility] Sodium [Moles/Vol] 138 mmol/L 136-145 [facility] WBC (Bld) [#/Vol] 10.4 10*3/uL 4.4-11.0 [facility] Bilirubin Test strip Ql (U)O rdered By: Carlos Cavazos on 11-24-2022 Bilirubin Ql (U) Negative Negative [facility] Blood erythrocytes count (nu mber/volume)Ordered By: Carlos Cavazos on 11-24-2022 RBC (Bld) [#/Vol] 4.44 10*6/uL 4.6-6.2 [facility] Blood hemoglobin measurement (mass/volume)Ordered By: Carlos Cavazos on 11-24-2022 Hemoglobin (Bld) [Mass/Vol] 11.8 g/dL 13.0-16.5 [facility] Blood platelet mean volumeOr dered By: Carlos Cavazos on 11-24-2022 Platelet mean volume (Bld) [Entitic vol] 9.7 fL 6.2-12.0 [facility] Calcium oxalate crystals det ection in urine sediment by light microscopyOrdered By: Carlos Cavazos on 11-24-2022 Calcium oxalate crystals LM Ql (Urine sed) RARE /hpf [facility] Culture, urineOrdered By: Sharif Crouch on 11-24-2022 Bacteria identified Cx Nom (U) Positive [facility] Determination of erythrocyte mean corpuscular volume (MCV)Ordered By: Carlos Cavazos on 11-24-2022 MCV (RBC) [Entitic vol] 84.7 fL 80-94 [facility] Hematocrit Auto (Bld) [Volum e fraction]Ordered By: Carlos Cavazos on 11-24-2022 Hematocrit (Bld) [Volume fraction] 37.6 % 40-54 [facility] Ketones Test strip Ql (U)Ord ered By: Carlos Cavazos on 11-24-2022 Ketones Ql (U) Negative Negative [facility] - Chemistry and C hemistry - challengeOrdered By: Carlos Cavazos on 11-24-2022 ALP [Catalytic activity/Vol] 103 U/L 45-117 [facility] ALT [Catalytic activity/Vol] 14 U/L 16-61 [facility] CO2 [Moles/Vol] 26.0 mmol/L 21.0-32.0 [facility] Globulin (S) [Mass/Vol] 4.0 g/dL 2.2-4.2 [facility] Urea nitrogen/Creatinine [Mass ratio] 24.1 mg/mg 10-20 [facility] - Hematology and Cell countsOrdered By: Carlos Cavazos on 11-24-2022 Erythrocyte distribution width (RBC) [Entitic vol] 49.4 fL 35.1-43.9 [facility] Erythrocyte distribution width (RBC) [Ratio] 16.0 % 11.6-14.6 [facility] MCH (RBC) [Entitic mass] 26.6 pg 27.0-32.0 [facility] MCHC Auto (RBC) [Mass/Vol]Or dered By: Carlos Cavazos on 11-24-2022 MCHC (RBC) [Mass/Vol] 31.4 g/dL 32-36 [facility] Mucus LM Ql (Urine sed)Order ed By: Carlos Cavazos on 11-24-2022 Mucus Ql (Urine sed) 0 SEEN /hpf [facility] Nitrite Test strip Ql (U)Ord ered By: Carlos Cavazos on 11-24-2022 Nitrite Ql (U) Negative Negative [facility] No Panel InformationOrdered By: Carlos Cavazos on 11-24-2022 Estimated GFR (MDRD) Amer 118 mL/min >60 [facility] Comment on above: GFR Calc Estimated GFR (MDRD) Non-Af Amer 97 mL/min >60 [facility] Comment on above: Non- GFR Calc Platelets bldOrdered By: Ted Cavazos on 11-24-2022 Platelets (Bld) [#/Vol] 309 10*3/uL 150-450 [facility] Protein Test strip Ql (U)Ord ered By: Carlos Cavazos on 11-24-2022 Protein Ql (U) Negative Negative [facility] Serum or plasma albumin oral urement (mass/volume)Ordered By: Carlos Cavazos on 11-24-2022 Albumin [Mass/Vol] 2.9 g/dL 3.2-5.0 [facility] Serum or plasma albumin/glob ulin mass ratioOrdered By: Carlos Cavazos on 11-24-2022 Albumin/Globulin [Mass ratio] 0.7 {ratio} 0.9-2.4 [facility] Serum or plasma calcium oral urement (mass/volume)Ordered By: Carlos Cavazos on 11-24-2022 Calcium [Mass/Vol] 8.7 mg/dL 8.5-10.1 [facility] Serum or plasma creatinine m easurement (mass/volume)Ordered By: Carlos Cavazos on 11-24-2022 Creatinine [Mass/Vol] 0.83 mg/dL 0.70-1.30 [facility] Comment on above: The validity of the calculated GFR & GFRAA in patients over 70 years has not been determined. Clinical correlation is essential. Serum or plasma urea nitroge n measurement (mass/volume)Ordered By: Carlos Cavazos on 11-24-2022 Urea nitrogen [Mass/Vol] 20 mg/dL 7-18 [facility] Squamous epithelial cells de tection in urine sediment by light microscopyOrdered By: Carlos Cavazos on 11-24-2022 Epithelial cells.squamous LM Ql (Urine sed) 0 SEEN /hpf 0-5 [facility] Thin prep Papanicolaou smear with manual screeningOrdered By: Carlos Cavazos on 11-24-2022 Thin prep Papanicolaou smear with manual screening 10 U/L 15-37 [facility] Thin prep Papanicolaou smear with manual screening 5 5-15 [facility] Urine blood detectionOrdered By: Carlos Cavazos on 11-24-2022 RBC Ql (U) Negative Negative [facility] RBC Ql (U) 0 SEEN /hpf 0-5 [facility] Urine clarityOrdered By: Ted Cavazos on 11-24-2022 Clarity (U) Clear Clear [facility] Urine color determinationOrd ered By: Carlos Cavazos on 11-24-2022 Color (U) Yellow Yellow [facility] Urine glucose detectionOrder ed By: Carlos Cavazos on 11-24-2022 Glucose Ql (U) Normal mg/dl Normal [facility] Urine leukocyte esterase det ection by dipstickOrdered By: Carlos Cavazos on 11-24-2022 Leukocyte esterase Test strip Ql (U) Negative Negative [facility] Urine pHOrdered By: Carlos flores on 11-24-2022 pH (U) 7.0 [pH] 5.0 - 8.0 [facility] Urine sediment bacteria coun t by microscopy (number/high power field)Ordered By: Carlos Cavazos on 11-24-2022 Bacteria LM.HPF (Urine sed) [#/Area] 0 /[HPF] None Seen [facility] Urine specific gravity measu rementOrdered By: Carlos Cavazos on 11-24-2022 Specific gravity (U) [Rel density] 1.010 1.002-1.030 [facility] Urobilinogen Auto test strip Ql (U)Ordered By: Carlos Cavazos on 11-24-2022 Urobilinogen Ql (U) Normal mg/dl Normal [facility] - CoagulationOrde red By: Carlos Cavazos on 11-23-2022 INR Coag (Bld) [Relative time] 2.2 {INR} [facility] Comment on above: Critical Value > 4.0 Whole blood prothrombin time Ordered By: Carlos Cavazos on 11-23-2022 PT Coag (Bld) [Time] 24.5 s 11.7-14.9 [facility] Basophil percentageOrdered B y: Carlos Cavazos on 11-22-2022 Chloride [Moles/Vol] 105 mmol/L 98-107 [facility] Glucose [Mass/Vol] 91 mg/dL 74-106 [facility] Potassium [Moles/Vol] 4.1 mmol/L 3.5-5.1 [facility] Sodium [Moles/Vol] 138 mmol/L 136-145 [facility] WBC (Bld) [#/Vol] 12.0 10*3/uL 4.4-11.0 [facility] Blood erythrocytes count (nu mber/volume)Ordered By: Carlos Cavazos on 11-22-2022 RBC (Bld) [#/Vol] 4.65 10*6/uL 4.6-6.2 [facility] Blood hemoglobin measurement (mass/volume)Ordered By: Carlos Cavazos on 11-22-2022 Hemoglobin (Bld) [Mass/Vol] 12.4 g/dL 13.0-16.5 [facility] Blood platelet mean volumeOr dered By: Carlos Cavazos on 11-22-2022 Platelet mean volume (Bld) [Entitic vol] 10.3 fL 6.2-12.0 [facility] Determination of erythrocyte mean corpuscular volume (MCV)Ordered By: Carlos Cavazos on 11-22-2022 MCV (RBC) [Entitic vol] 86.0 fL 80-94 [facility] Hematocrit Auto (Bld) [Volum e fraction]Ordered By: Carlos Cavazos on 11-22-2022 Hematocrit (Bld) [Volume fraction] 40.0 % 40-54 [facility] - Chemistry and C hemistry - challengeOrdered By: Carlos Cavazos on 11-22-2022 CO2 [Moles/Vol] 25.0 mmol/L 21.0-32.0 [facility] Urea nitrogen/Creatinine [Mass ratio] 23.6 mg/mg 10-20 [facility] - Hematology and Cell countsOrdered By: Carlos Cavazos on 11-22-2022 Erythrocyte distribution width (RBC) [Entitic vol] 50.0 fL 35.1-43.9 [facility] Erythrocyte distribution width (RBC) [Ratio] 15.9 % 11.6-14.6 [facility] MCH (RBC) [Entitic mass] 26.7 pg 27.0-32.0 [facility] MCHC Auto (RBC) [Mass/Vol]Or dered By: Carlos Cavazos on 11-22-2022 MCHC (RBC) [Mass/Vol] 31.0 g/dL 32-36 [facility] No Panel InformationOrdered By: Carlos Cavazos on 11-22-2022 Estimated GFR (MDRD) Amer 115 mL/min >60 [facility] Comment on above: GFR Calc Estimated GFR (MDRD) Non-Af Amer 95 mL/min >60 [facility] Comment on above: Non- GFR Calc Platelets bldOrdered By: Pet er Kenny on 11-22-2022 Platelets (Bld) [#/Vol] 320 10*3/uL 150-450 [facility] Serum or plasma calcium oral urement (mass/volume)Ordered By: Carlos Cavazos on 11-22-2022 Calcium [Mass/Vol] 8.7 mg/dL 8.5-10.1 [facility] Serum or plasma creatinine m easurement (mass/volume)Ordered By: Carlos Cavazos on 11-22-2022 Creatinine [Mass/Vol] 0.85 mg/dL 0.70-1.30 [facility] Comment on above: The validity of the calculated GFR & GFRAA in patients over 70 years has not been determined. Clinical correlation is essential. Serum or plasma urea nitroge n measurement (mass/volume)Ordered By: Carlos Cavazos on 11-22-2022 Urea nitrogen [Mass/Vol] 20 mg/dL 7-18 [facility] Thin prep Papanicolaou smear with manual screeningOrdered By: Carlos Cavazos on 11-22-2022 Thin prep Papanicolaou smear with manual screening 8 5-15 [facility] - CoagulationOrde red By: Carlos Cavazos on 11-09-2022 INR Coag (Bld) [Relative time] 2.1 {INR} [facility] Comment on above: Critical Value > 4.0 Whole blood prothrombin time Ordered By: Carlos Cavazos on 11-09-2022 PT Coag (Bld) [Time] 22.6 s 11.7-14.9 [facility] - CoagulationOrde red By: Carlos Cavazos on 10-26-2022 INR Coag (Bld) [Relative time] 2.6 {INR} [facility] Comment on above: Critical Value > 4.0 Whole blood prothrombin time Ordered By: Carlos Cavazos on 10-26-2022 PT Coag (Bld) [Time] 28.5 s 11.7-14.9 [facility] - CoagulationOrde red By: Carlos Cavazos on 10-12-2022 INR Coag (Bld) [Relative time] 2.4 {INR} [facility] Comment on above: Critical Value > 4.0 Whole blood prothrombin time Ordered By: Carlos Cavazos on 10-12-2022 PT Coag (Bld) [Time] 26.4 s 11.7-14.9 [facility] - CoagulationOrde red By: Carlos Cavazos on 10-05-2022 INR Coag (Bld) [Relative time] 2.6 {INR} [facility] Comment on above: Critical Value > 4.0 Whole blood prothrombin time Ordered By: Carlos Cavazos on 10-05-2022 PT Coag (Bld) [Time] 28.0 s 11.7-14.9 [facility] - CoagulationOrde red By: Carlos Cavazos on 09-28-2022 INR Coag (Bld) [Relative time] 2.7 {INR} [facility] Comment on above: Critical Value > 4.0 Whole blood prothrombin time Ordered By: Carlos Cavazos on 09-28-2022 PT Coag (Bld) [Time] 28.9 s 11.7-14.9 [facility] - CoagulationOrde red By: Carlos Cavazos on 09-14-2022 INR Coag (Bld) [Relative time] 2.5 {INR} [facility] Comment on above: Critical Value > 4.0 Whole blood prothrombin time Ordered By: Carlos Cavazos on 09-14-2022 PT Coag (Bld) [Time] 27.4 s 11.7-14.9 [facility] - CoagulationOrde red By: Carlos Cavazos on 08-31-2022 INR Coag (Bld) [Relative time] 2.3 {INR} [facility] Comment on above: Critical Value > 4.0 Whole blood prothrombin time Ordered By: Carlos Cavazos on 08-31-2022 PT Coag (Bld) [Time] 25.4 s 11.7-14.9 [facility] Basophil percentageOrdered B y: Carlos Cavazos on 08-23-2022 Chloride [Moles/Vol] 108 mmol/L 98-107 [facility] Glucose [Mass/Vol] 86 mg/dL 74-106 [facility] Potassium [Moles/Vol] 4.3 mmol/L 3.5-5.1 [facility] Sodium [Moles/Vol] 136 mmol/L 136-145 [facility] WBC (Bld) [#/Vol] 10.0 10*3/uL 4.4-11.0 [facility] Blood erythrocytes count (nu mber/volume)Ordered By: Carlos Cavazos on 08-23-2022 RBC (Bld) [#/Vol] 4.77 10*6/uL 4.6-6.2 [facility] Blood hemoglobin measurement (mass/volume)Ordered By: Carlos Cavazos on 08-23-2022 Hemoglobin (Bld) [Mass/Vol] 12.5 g/dL 13.0-16.5 [facility] Blood platelet mean volumeOr dered By: Carlos Cavazos on 08-23-2022 Platelet mean volume (Bld) [Entitic vol] 11.0 fL 6.2-12.0 [facility] Determination of erythrocyte mean corpuscular volume (MCV)Ordered By: Carlos Cavazos on 08-23-2022 MCV (RBC) [Entitic vol] 84.3 fL 80-94 [facility] Hematocrit Auto (Bld) [Volum e fraction]Ordered By: Carlos Cavazos on 08-23-2022 Hematocrit (Bld) [Volume fraction] 40.2 % 40-54 [facility] Laboratory - Chemistry and C hemistry - challengeOrdered By: Carlos Cavazos on 08-23-2022 CO2 [Moles/Vol] 24.0 mmol/L 21.0-32.0 [facility] Urea nitrogen/Creatinine [Mass ratio] 22.8 mg/mg 10-20 [facility] Laboratory - Hematology and Cell countsOrdered By: Carlos Cavazos on 08-23-2022 Erythrocyte distribution width (RBC) [Entitic vol] 49.3 fL 35.1-43.9 [facility] Erythrocyte distribution width (RBC) [Ratio] 16.0 % 11.6-14.6 [facility] MCH (RBC) [Entitic mass] 26.2 pg 27.0-32.0 [facility] MCHC Auto (RBC) [Mass/Vol]Or dered By: Carlos Cavazos on 08-23-2022 MCHC (RBC) [Mass/Vol] 31.1 g/dL 32-36 [facility] No Panel InformationOrdered By: Carlos Cavazos on 08-23-2022 Estimated GFR (MDRD) Amer 134 mL/min >60 [facility] Comment on above: GFR Calc Estimated GFR (MDRD) Non-Af Amer 110 mL/min >60 [facility] Comment on above: Non- GFR Calc Platelets bldOrdered By: Ted Cavazos on 08-23-2022 Platelets (Bld) [#/Vol] 268 10*3/uL 150-450 [facility] Serum or plasma calcium oral urement (mass/volume)Ordered By: Carlos Cavazos on 08-23-2022 Calcium [Mass/Vol] 9.1 mg/dL 8.5-10.1 [facility] Serum or plasma creatinine m easurement (mass/volume)Ordered By: Carlos Cavazos on 08-23-2022 Creatinine [Mass/Vol] 0.74 mg/dL 0.70-1.30 [facility] Comment on above: The validity of the calculated GFR & GFRAA in patients over 70 years has not been determined. Clinical correlation is essential. Serum or plasma urea nitroge n measurement (mass/volume)Ordered By: Carlos Cavazos on 08-23-2022 Urea nitrogen [Mass/Vol] 17 mg/dL 7-18 [facility] Thin prep Papanicolaou smear with manual screeningOrdered By: Carlos Cavazos on 08-23-2022 Thin prep Papanicolaou smear with manual screening 4 5-15 [facility] Laboratory - CoagulationOrde red By: Carlos Cavazos on 08-17-2022 INR Coag (Bld) [Relative time] 2.8 {INR} [facility] Comment on above: Critical Value > 4.0 Whole blood prothrombin time Ordered By: Carlos Cavazos on 08-17-2022 PT Coag (Bld) [Time] 29.6 s 11.7-14.9 [facility] - CoagulationOrde red By: Carlos Cavazos on 08-14-2022 INR Coag (Bld) [Relative time] 3.9 {INR} [facility] Comment on above: Critical Value > 4.0 Whole blood prothrombin time Ordered By: Carlos Cavazos on 08-14-2022 PT Coag (Bld) [Time] 40.6 s 11.7-14.9 [facility] - CoagulationOrde red By: Carlos Cavazos on 07-31-2022 INR Coag (Bld) [Relative time] 2.5 {INR} [facility] Comment on above: Critical Value > 4.0 Whole blood prothrombin time Ordered By: Carlos Cavazos on 07-31-2022 PT Coag (Bld) [Time] 26.8 s 11.7-14.9 [facility] INR in Blood by Coagulation assayOrdered By: Carlos Cavazos on 07-24-2022 INR Coag (Bld) [Relative time] 2.3 {INR} [facility] - CoagulationOrde red By: Carlos Cavazos on 07-24-2022 PT Coag (PPP) [Time] 24.7 s 11.7-14.9 [facility] - CoagulationOrde red By: Carlos Cavazos on 07-20-2022 INR Coag (Bld) [Relative time] 1.9 {INR} [facility] Comment on above: Critical Value > 4.0 Whole blood prothrombin time Ordered By: Carlos Cavazos on 07-20-2022 PT Coag (Bld) [Time] 20.6 s 11.7-14.9 [facility] - CoagulationOrde red By: Carlos Cavazos on 07-17-2022 INR Coag (Bld) [Relative time] 1.3 {INR} [facility] Comment on above: Critical Value > 4.0 Whole blood prothrombin time Ordered By: Carlos Cavazos on 07-17-2022 PT Coag (Bld) [Time] 15.9 s 11.7-14.[address] [facility] Basophil percentageOrdered B y: Carlos Cavazos on 07-11-2022 Chloride [Moles/Vol] 105 mmol/L 98-107 [facility] Glucose [Mass/Vol] 97 mg/dL 74-106 [facility] Potassium [Moles/Vol] 3.9 mmol/L 3.5-5.1 [facility] Sodium [Moles/Vol] 140 mmol/L 136-145 [facility] WBC (Bld) [#/Vol] 9.4 10*3/uL 4.4-11.0 [facility] Blood erythrocytes count (nu mber/volume)Ordered By: Carlos Cavazos on 07-11-2022 RBC (Bld) [#/Vol] 4.66 10*6/uL 4.6-6.2 [facility] Blood hemoglobin measurement (mass/volume)Ordered By: Carlos Cavazos on 07-11-2022 Hemoglobin (Bld) [Mass/Vol] 12.0 g/dL 13.0-16.5 [facility] Blood platelet mean volumeOr dered By: Carlos Cavazos on 07-11-2022 Platelet mean volume (Bld) [Entitic vol] 10.4 fL 6.2-12.0 [facility] Determination of erythrocyte mean corpuscular volume (MCV)Ordered By: Carlos Cavazos on 07-11-2022 MCV (RBC) [Entitic vol] 83.7 fL 80-94 [facility] Hematocrit Auto (Bld) [Volum e fraction]Ordered By: aCrlos Cavazos on 07-11-2022 Hematocrit (Bld) [Volume fraction] 39.0 % 40-54 [facility] Laboratory - Chemistry and C hemistry - challengeOrdered By: Carlos Cavazos on 07-11-2022 CO2 [Moles/Vol] 28.0 mmol/L 21.0-32.0 [facility] Urea nitrogen/Creatinine [Mass ratio] 23.0 mg/mg 10-20 [facility] - Hematology and Cell countsOrdered By: Carlos Cavazos on 07-11-2022 Erythrocyte distribution width (RBC) [Entitic vol] 51.0 fL 35.1-43.9 [facility] Erythrocyte distribution width (RBC) [Ratio] 16.8 % 11.6-14.6 [facility] MCH (RBC) [Entitic mass] 25.8 pg 27.0-32.0 [facility] MCHC Auto (RBC) [Mass/Vol]Or dered By: Carlos Cavazos on 07-11-2022 MCHC (RBC) [Mass/Vol] 30.8 g/dL 32-36 [facility] No Panel InformationOrdered By: Carlos Cavazos on 07-11-2022 Estimated GFR (MDRD) Amer 126 mL/min >60 [facility] Comment on above: GFR Calc Estimated GFR (MDRD) Non-Af Amer 104 mL/min >60 [facility] Comment on above: Non- GFR Calc Platelets bldOrdered By: Ted Cavazos on 07-11-2022 Platelets (Bld) [#/Vol] 291 10*3/uL 150-450 [facility] Serum or plasma calcium oral urement (mass/volume)Ordered By: Carlos Cavazos on 07-11-2022 Calcium [Mass/Vol] 9.2 mg/dL 8.5-10.1 [facility] Serum or plasma creatinine m easurement (mass/volume)Ordered By: Carlos Cavazos on 07-11-2022 Creatinine [Mass/Vol] 0.78 mg/dL 0.70-1.30 [facility] Comment on above: The validity of the calculated GFR & GFRAA in patients over 70 years has not been determined. Clinical correlation is essential. Serum or plasma urea nitroge n measurement (mass/volume)Ordered By: Carlos Cavazos on 07-11-2022 Urea nitrogen [Mass/Vol] 18 mg/dL 7-18 [facility] Thin prep Papanicolaou smear with manual screeningOrdered By: Carlos Cavazos on 07-11-2022 Thin prep Papanicolaou smear with manual screening 7 5-15 [facility] Laboratory - CoagulationOrde red By: Carlos Cavazos on 07-10-2022 INR Coag (Bld) [Relative time] 1.8 {INR} [facility] Comment on above: Critical Value > 4.0 Whole blood prothrombin time Ordered By: Carlos Cavazos on 07-10-2022 PT Coag (Bld) [Time] 21.0 s 11.7-14.9 [facility] - CoagulationOrde red By: Carlos Cavazos on 07-03-2022 INR Coag (Bld) [Relative time] 1.9 {INR} [facility] Comment on above: Critical Value > 4.0 Whole blood prothrombin time Ordered By: Carlos Cavazos on 07-03-2022 PT Coag (Bld) [Time] 22.7 s 11.7-14.9 [facility] INR in Blood by Coagulation assayOrdered By: Carlos Cavazos on 06-27-2022 INR Coag (Bld) [Relative time] 2.9 {INR} [facility] - CoagulationOrde red By: Carlos Cavazos on 06-27-2022 PT Coag (PPP) [Time] 29.9 s 11.7-14.9 [facility] - CoagulationOrde red By: Carlos Cavazos on 06-13-2022 INR Coag (Bld) [Relative time] 2.1 {INR} [facility] Comment on above: Critical Value > 4.0 Whole blood prothrombin time Ordered By: Carlos Cavazos on 06-13-2022 PT Coag (Bld) [Time] 24.4 s 11.7-14.9 [facility] - CoagulationOrde red By: Carlos Cavazos on 06-06-2022 INR Coag (Bld) [Relative time] 1.5 {INR} [facility] Comment on above: Critical Value > 4.0 Whole blood prothrombin time Ordered By: Carlos Cavazos on 06-06-2022 PT Coag (Bld) [Time] 18.4 s 11.7-14.9 [facility] Basophil percentageOrdered B y: Carlos Cavazos on 05-30-2022 Chloride [Moles/Vol] 105 mmol/L 98-107 [facility] Glucose [Mass/Vol] 95 mg/dL 74-106 [facility] Potassium [Moles/Vol] 3.9 mmol/L 3.5-5.1 [facility] Sodium [Moles/Vol] 140 mmol/L 136-145 [facility] WBC (Bld) [#/Vol] 7.6 10*3/uL 4.4-11.0 [facility] Blood erythrocytes count (nu mber/volume)Ordered By: Carlos Cavazos on 05-30-2022 RBC (Bld) [#/Vol] 4.79 10*6/uL 4.6-6.2 [facility] Blood hemoglobin measurement (mass/volume)Ordered By: Carlos Cavazos on 05-30-2022 Hemoglobin (Bld) [Mass/Vol] 12.1 g/dL 13.0-16.5 [facility] Blood platelet mean volumeOr dered By: Carlos Cavazos on 05-30-2022 Platelet mean volume (Bld) [Entitic vol] 10.4 fL 6.2-12.0 [facility] Determination of erythrocyte mean corpuscular volume (MCV)Ordered By: Carlos Cavazos on 05-30-2022 MCV (RBC) [Entitic vol] 82.5 fL 80-94 [facility] Hematocrit Auto (Bld) [Volum e fraction]Ordered By: Carlos Cavazos on 05-30-2022 Hematocrit (Bld) [Volume fraction] 39.5 % 40-54 [facility] INR in Blood by Coagulation assayOrdered By: Carlos Cavazos on 05-30-2022 INR Coag (Bld) [Relative time] 1.9 {INR} [facility] - Chemistry and C hemistry - challengeOrdered By: Carlos Cavazos on 05-30-2022 CO2 [Moles/Vol] 27.0 mmol/L 21.0-32.0 [facility] Urea nitrogen/Creatinine [Mass ratio] 21.4 mg/mg 10-20 [facility] - CoagulationOrde red By: Carlos Cavazos on 05-30-2022 PT Coag (PPP) [Time] 21.6 s 11.7-14.9 [facility] - Hematology and Cell countsOrdered By: Carlos Cavazos on 05-30-2022 Erythrocyte distribution width (RBC) [Entitic vol] 48.8 fL 35.1-43.9 [facility] Erythrocyte distribution width (RBC) [Ratio] 16.2 % 11.6-14.6 [facility] MCH (RBC) [Entitic mass] 25.3 pg 27.0-32.0 [facility] Auto (RBC) [Mass/Vol]Or dered By: Carlos Cavazos on 05-30-2022 MCHC (RBC) [Mass/Vol] 30.6 g/dL 32-36 [facility] No Panel InformationOrdered By: Carlos Cavazos on 05-30-2022 Estimated GFR (MDRD) Amer 133 mL/min >60 [facility] Comment on above: GFR Calc Estimated GFR (MDRD) Non-Af Amer 110 mL/min >60 [facility] Comment on above: Non- GFR Calc Platelets bldOrdered By: Ted Cavazos on 05-30-2022 Platelets (Bld) [#/Vol] 308 10*3/uL 150-450 [facility] Serum or plasma calcium oral urement (mass/volume)Ordered By: Carlos Cavazos on 05-30-2022 Calcium [Mass/Vol] 9.1 mg/dL 8.5-10.1 [facility] Serum or plasma creatinine m easurement (mass/volume)Ordered By: Carlos Cavazos on 05-30-2022 Creatinine [Mass/Vol] 0.75 mg/dL 0.70-1.30 [facility] Comment on above: The validity of the calculated GFR & GFRAA in patients over 70 years has not been determined. Clinical correlation is essential. Serum or plasma urea nitroge n measurement (mass/volume)Ordered By: Carlos Cavazos on 05-30-2022 Urea nitrogen [Mass/Vol] 16 mg/dL 7-18 [facility] Thin prep Papanicolaou smear with manual screeningOrdered By: Carlos Cavazos on 05-30-2022 Thin prep Papanicolaou smear with manual screening 8 5-15 [facility] - CoagulationOrde red By: Carlos Cavazos on 05-16-2022 INR Coag (Bld) [Relative time] 2.6 {INR} [facility] Comment on above: Critical Value > 4.0 Whole blood prothrombin time Ordered By: Carlos Cavazos on 05-16-2022 PT Coag (Bld) [Time] 29.9 s 11.7-14.9 [facility] - CoagulationOrde red By: Carlos Cavazos on 05-02-2022 INR Coag (Bld) [Relative time] 2.0 {INR} [facility] Comment on above: Critical Value > 4.0 Whole blood prothrombin time Ordered By: Carlos Cavazos on 05-02-2022 PT Coag (Bld) [Time] 23.2 s 11.7-14.9 [facility] - CoagulationOrde red By: Carlos Cavazos on 04-27-2022 INR Coag (Bld) [Relative time] 2.7 {INR} [facility] Comment on above: Critical Value > 4.0 Whole blood prothrombin time Ordered By: Carlos Cavazos on 04-27-2022 PT Coag (Bld) [Time] 31.1 s 11.7-14.9 [facility] - CoagulationOrde red By: Carlos Cavazos on 04-26-2022 INR Coag (Bld) [Relative time] 2.8 {INR} [facility] Comment on above: Critical Value > 4.0 Whole blood prothrombin time Ordered By: Carlos Cavazos on 04-26-2022 PT Coag (Bld) [Time] 32.6 s 11.7-14.9 [facility] - CoagulationOrde red By: Carlos Cavazos on 04-11-2022 INR Coag (Bld) [Relative time] 2.9 {INR} [facility] Comment on above: Critical Value > 4.0 Whole blood prothrombin time Ordered By: Carlos Cavazos on 04-11-2022 PT Coag (Bld) [Time] 32.8 s 11.7-14.9 [facility] - CoagulationOrde red By: Carlos Cavazos on 03-28-2022 INR Coag (Bld) [Relative time] 2.1 {INR} [facility] Comment on above: Critical Value > 4.0 Whole blood prothrombin time Ordered By: Carlos Cavazos on 03-28-2022 PT Coag (Bld) [Time] 24.8 s 11.7-14.9 [facility] - CoagulationOrde red By: Carlos Cavazos on 03-23-2022 INR Coag (Bld) [Relative time] 1.7 {INR} [facility] Comment on above: Critical Value > 4.0 Whole blood prothrombin time Ordered By: Carlos Cavazos on 03-23-2022 PT Coag (Bld) [Time] 20.9 s 11.7-14.9 [facility] - CoagulationOrde red By: Carlos Cavazos on 03-16-2022 INR Coag (Bld) [Relative time] 1.7 {INR} [facility] Comment on above: Critical Value > 4.0 Whole blood prothrombin time Ordered By: Carlos Cavazos on 03-16-2022 PT Coag (Bld) [Time] 19.9 s 11.7-14.9 [facility] - CoagulationOrde red By: Carlos Cavazos on 03-09-2022 INR Coag (Bld) [Relative time] 1.8 {INR} [facility] Comment on above: Critical Value > 4.0 Whole blood prothrombin time Ordered By: Carlos Cavazos on 03-09-2022 PT Coag (Bld) [Time] 21.9 s 11.7-14.9 [facility] - CoagulationOrde red By: Carlos Cavazos on 03-06-2022 INR Coag (Bld) [Relative time] 1.7 {INR} [facility] Comment on above: Critical Value > 4.0 Whole blood prothrombin time Ordered By: Carlos Cavazos on 03-06-2022 PT Coag (Bld) [Time] 20.0 s 11.7-14.9 [facility] CBC with Auto Differentialon 03-02-2022 Absolute [...] - 10.7 10*3/uL [facility] Test Performed by [facility], [address] [place] [address] [address] HEAD WO CONTRASTon 2021 Patient Name: ANDREW SIFUENTES Computed Tomography ACCESSION EXAM DATE/TIME PROCEDURE ORDERING PROVIDER [id number] 03/02/2022 13:[address] Head or Brain w/o 270357 -LANETTE MUNGUIA CPT code 15978 Reason For Exam (CT Head or Brain [...] tubes (parent active on the left for SHOE RECONDITIONER shunting and disconnected on the right). 2. No definite evidence of acute infarction (MRI more sensitive), mass lesion, nor hemorrhage. Report Dictated on --- Final --- Dictated: 03/02/2022 1:35 pm Dictating Physician: MD GUTIERREZ WILLIAM Signed Date and Time: 03/02/2022 1:39 pm Signed by: MD GUTIERREZ WILLIAM Transcribed Date and Time: 03/02/2022 1:35 [facility] Anant Gutierrez MD - 03/02/2022 [id number] ACCESSION EXAM DATE/TIME PROCEDURE ORDERING PROVIDER [id number] 03/02/2022 13:[address] Head or Brain w/o [id number] -LANETTE MUNGUIA Contrast CPT code 59153 Reason For Exam (CT Head or Brain [...] tubes (parent active on the left for SHOE RECONDITIONER shunting and disconnected on the right). 2. [...] Tomography ACCESSION EXAM DATE/TIME PROCEDURE ORDERING PROVIDER [id number] 03/02/2022 13:[address] Head or Brain w/o 150367 -LANETTE MUNGUIA Contrast CPT code 37822 Reason For Exam (CT Head or Brain [...] tubes (parent active on the left for SHOE RECONDITIONER shunting and disconnected on the right). 2. No definite evidence of acute infarction (MRI more sensitive), mass lesion, nor hemorrhage. Report Dictated on Final Dictated: 03/02/2022 1:35 pm Dictating Physician: MD GUTIERREZ WILLIAM Signed Date and Time: 03/02/2022 1:39 pm Signed by: MD GUTIERREZ WILLIAM Transcribed Date and Time: 03/02/2022 1:35 Normal [facility] Comp Metabolic Panelon 03-02 Calcium [Mass/Vol] 9.1 mg/dL Normal 8.4-10.4 [facility] Comment on above: Performed By: #### H EMDF PT, CMP3 ####[address] [place], [place] ALP [Catalytic activity/Vol] 128 U/L High 38-126 [facility] Comment on above: Performed By: #### H BIMALF PT, CMP3 ####[address] [place], [place] ALT [Catalytic activity/Vol] 12 U/L Normal 0-49 [facility] Comment on above: Result Comment: The ALT test is performed by an updated assay method. Please note that the reference intervals have been changed and are now sex specific. Performed By: #### H EMDF PT, CMP3 ####[address] [place], [place] Anion gap [Moles/Vol] 7 mmol/L Normal 3-13 [facility] Comment on above: Performed By: #### H EMDF, PT, CMP3 ####[address] [place], [place] AST [Catalytic activity/Vol] 24 U/L Normal 15-46 [facility] Comment on above: Performed By: #### H BIMALF PT, CMP3 ####[facility] [id number] [employer] [place], [place] Bilirubin [Mass/Vol] 0.4 mg/dL Normal 0.2-1.3 [facility] Comment on above: Performed By: #### H EMDF PT, CMP3 ####[facility] [id number] [facility] [place] CO2 [Moles/Vol] 27 mmol/L Normal 22-30 [facility] Comment on above: Performed By: #### H BIMALF PT, CMP3 ####[facility] [id number] [facility] [place] Glucose [Mass/Vol] 109 mg/dL High 70-100 [facility] Comment on above: Performed By: #### H BIMALF PT, CMP3 ####[facility] [id number] [facility] [place] Protein [Mass/Vol] 8.1 g/dL Normal 6.3-8.2 [facility] Comment on above: Performed By: #### H TIERA PT, CMP3 ####[facility] [id number] [employer] [place], [place] Urea nitrogen [Mass/Vol] 22 mg/dL High 7-17 [facility] Comment on above: Performed By: #### H BIMALF PT, CMP3 ####[facility] [id number] [employer] [place], [place] Creatinine [Mass/Vol] 0.63 mg/dL Normal 0.52-1.25 [facility] Comment on above: Performed By: #### H EMDF PT, CMP3 ####[facility] [id number] [employer] [place], [place] eGFR OTHER > 90.0 Normal >60 [facility] Comment on above: Result Comment: KDIG [...] Performed By: #### H CHRISTEL MOTT CMP3 ####[address] GFR/1.73 sq M.predicted among blacks MDRD (S/P/Bld) [Vol rate/Area] mL/min/{1.73_m2} Normal >60 [facility] Comment on above: Performed By: #### H CHRISTEL MOTT CMP3 ####[address] Albumin [Mass/Vol] 4.1 g/dL Normal 3.5-5.0 [facility] Comment on above: Performed By: #### H CHRISTEL MOTT CMP3 ####[address] Chloride [Moles/Vol] 106 mmol/L Normal 98-107 [facility] Comment on above: Performed By: #### H CHRISTEL MOTT CMP3 ####[address] Potassium [Moles/Vol] 3.7 mmol/L Normal 3.5-5.1 [facility] Comment on above: Performed By: #### H CHRISTEL MOTT CMP3 ####[address] Sodium [Moles/Vol] 140 mmol/L Normal 135-145 [facility] Comment on above: Performed By: #### H CHRISTEL MOTT CMP3 ####[address] [id number] [facility] 03-02-2022 Albumin [Mass/Vol] 4.1 g/dL 3.5 - [...] P INF mL/min [facility] EGFR IF NonAfrican Northern Irish mL/min 60 - PINF mL/min [facility] Comment [...] - 17 mg/dL [facility] Test Performed by [facility], [address] [place] [id number] [facility] ED Provider Noteon 2 ED Provider Note [facility] EMERGENCY DEPT EMERGENCY DEPARTMENT ENCOUNTER Pt Name: Andrew Sifuentes Birthdate 1950 Date of evaluation: 03/02/2022 Provider: Lanette Munguia DO CHIEF COMPLAINT Chief Complaint Patient presents with Fall Patient had unwitnessed fall at [facility] landed on butt. Is on thinners, denies LOC, denies head injury has no complaints at this time HISTORY OF PRESENT ILLNESS (Location/Symptom, Timing/Onset, Context/Setting, Quality, Duration, Modifying Factors, Severity) Note limiting factors. I wore a N-95 mask for the entirety of this encounter. Andrew Sifuentes is a 71 y.o. male medical history of hydrocephalus status post SHOE RECONDITIONER shunt, history of DVT on Coumadin who presents to the emergency department from [facility] for evaluation following mechanical fall. Patient rolled out of bed. Unwitnessed. Found down on ground by nursing staff. Nonambulatory at baseline. Patient reports he did not hit his head. Has no acute complaints. Denies any pain or traumatic injury. Per nursing protocol at alf, sent to emergency department due to unwitnessed [...] Hemorrhoids Hydrocephalus, adult (HCC) Kidney stone Neuropathy SHOE RECONDITIONER (ventriculoperitoneal) shunt status SURGICAL HISTORY Past Surgical [...] R (more content not included)... Normal [facility] Hemogram w/ Autodiffon 03-02 Abs Baso Cnt 0.2 10*3/uL Normal 0.0-0.2 [facility] Comment on above: Performed By: #### H TIERA PT, CMP3 ####[facility] [place] [address] Abs Neutrophile Cnt 10.7 10*3/uL High 1.8-7.0 [facility] Comment on above: Performed By: #### H TIERA PT, CMP3 ####[facility] [place] [address] Basophils/100 WBC (Bld) 1.1 % Normal 0.0-2.0 [facility] Comment on above: Performed By: #### H TIERA PT, CMP3 ####[facility] [place] [address] Eosinophils (Bld) [#/Vol] 0.1 10*3/uL Normal 0.0-0.5 [facility] Comment on above: Performed By: #### H BIMALF PT, CMP3 ####[address] [place] [address] Eosinophils/100 WBC (Bld) 0.5 % Low 1.0-6.0 [facility] Comment on above: Performed By: #### H EMDF PT, CMP3 ####[address] [id number] Granulocytes/100 WBC (Bld) 73.9 % Normal 40.0-80.0 [facility] Comment on above: Performed By: #### H EMDF PT, CMP3 ####[address] [address] Lymphocytes (Bld) [#/Vol] 3.0 10*3/uL Normal 1.0-4.3 [facility] Comment on above: Performed By: #### H EMDHeydi PT, CMP3 ####[address] [address] Lymphocytes/100 WBC (Bld) 20.6 % Normal 20.0-40.0 [facility] Comment on above: Performed By: #### H EMDHeydi PT, CMP3 ####[address] [address] Monocytes (Bld) [#/Vol] 0.6 10*3/uL Normal 0.0-0.8 [facility] Comment on above: Performed By: #### H EMDF PT, CMP3 ####[address] [address] Monocytes/100 WBC (Bld) 3.9 % Normal 2.0-10.0 [facility] Comment on above: Performed By: #### H EMDHeydi PT, CMP3 ####[address] [address] Platelet mean volume (Bld) [Entitic vol] 8.5 fL Normal 7.4-12.4 [facility] Comment on above: Result Comment: MPV is a calculated measurement using platelet volume ratio. Performed By: #### H EMDF PT, CMP3 ####[address] [place], [place] Platelets (Bld) [#/Vol] 411 10*3/uL Normal 140-440 [facility] Comment on above: Performed By: #### H EMDF, PT, CMP3 ####[address] Erythrocyte distribution width (RBC) [Ratio] 17.0 % High 11.5-14.5 [facility] Comment on above: Performed By: #### H EMDF, PT, CMP3 ####[address] Hematocrit (Bld) [Volume fraction] 37.4 % Low 40.0-52.0 [facility] Comment on above: Performed By: #### H EMDF, PT, CMP3 ####[address] Hemoglobin (Bld) [Mass/Vol] 12.1 g/dL Low 13.0-18.0 [facility] Comment on above: Performed By: #### H EMDF, PT, CMP3 ####[address] MCH (RBC) [Entitic mass] 26.2 pg Normal 26.0-34.0 [facility] Comment on above: Performed By: #### H EMDF, PT, CMP3 ####[address] MCHC 32.3 % Normal 32.0-36.0 [facility] Comment on above: Performed By: #### H EMDF, PT, CMP3 ####[address] MCV (RBC) [Entitic vol] 81.1 fL Normal 80.0-98.0 [facility] Comment on above: Performed By: #### H EMDF, PT, CMP3 ####[address] RBC (Bld) [#/Vol] 4.61 10*6/uL Normal 4.40-5.90 [facility] Comment on above: Performed By: #### H BIMALF PT, CMP3 ####[address] WBC (Bld) [#/Vol] 14.5 10*3/uL High 3.6-10.7 [facility] Comment on above: Performed By: #### H EMDF PT, CMP3 ####[address] Prothrombin Timeon INR 1.9 High 0.9-1.1 [facility] Comment on above: Result Comment: Harry [...] Performed By: #### H TIERA PT, CMP3 ####[address] PT Coag (PPP) [Time] 18.9 s High 9.0-12.0 [facility] Comment on above: Result Comment: . Performed By: #### H BIMALF PT, CMP3 ####[address] Protime-INRon 03-02-2022 INR Coag (Bld) [Relative time] 1.9 {INR} High [facility] Comment on above: Recommended Anticoag [...] Interpretation and review of laboratory results Abnormal [facility] PT Coag (PPP) [Time] 18.9 s High 9.0 - 12.0 s [facility] Comment on above: . Test Performed by [facility], [address] [place] [address] [facility] Laboratory - CoagulationOrde red By: Carlos Cavazos on 02-20-2022 INR Coag (Bld) [Relative time] 2.6 {INR} [facility] Comment on above: Critical Value > 4.0 Whole blood prothrombin time Ordered By: Carlos Cavazos on 02-20-2022 PT Coag (Bld) [Time] 30.1 s 11.7-14.9 [facility] Laboratory - CoagulationOrde red By: Carlos Cavazos on 02-13-2022 INR Coag (Bld) [Relative time] 2.3 {INR} [facility] Comment on above: Critical Value > 4.0 Whole blood prothrombin time Ordered By: Carlos Cavazos on 02-13-2022 PT Coag (Bld) [Time] 26.7 s 11.7-14.9 [facility] Laboratory - CoagulationOrde red By: Carlos Cavazos on 02-06-2022 INR Coag (Bld) [Relative time] 2.3 {INR} [facility] Comment on above: Critical Value > 4.0 Whole blood prothrombin time Ordered By: Carlos Cavazos on 02-06-2022 PT Coag (Bld) [Time] 26.6 s 11.7-14.9 [facility] Laboratory - Coagulationon 0 01-30-2022 INR Coag (Bld) [Relative time] 1.7 {INR} [facility] Work Phone: Comment on above: Critical Value > 4.0 Whole blood prothrombin time on 01-30-2022 PT Coag (Bld) [Time] 20.1 s 11.7-14.9 [facility] Work Phone: Laboratory - Coagulationon 0 01-26-2022 INR Coag (Bld) [Relative time] 1.8 {INR} [facility] Work Phone: Comment on above: Critical Value > 4.0 Whole blood prothrombin time on 01-26-2022 PT Coag (Bld) [Time] 21.8 s 11.7-14.9 [facility] Work Phone: Laboratory - Coagulationon 0 01-19-2022 INR Coag (Bld) [Relative time] 2.2 {INR} [facility] Work Phone: Comment on above: Critical Value > 4.0 Whole blood prothrombin time on 01-19-2022 PT Coag (Bld) [Time] 25.7 s 11.7-14.9 [facility] Work Phone: INR in Blood by Coagulation assayon 01-10-2022 INR Coag (Bld) [Relative time] 1.8 {INR} [facility] Work Phone: Laboratory - Coagulationon 0 01-10-2022 PT Coag (PPP) [Time] 20.9 s 11.7-14.9 [facility] Work Phone: Basophil percentageon 2021 Chloride [Moles/Vol] 107 mmol/L 98-107 [facility] Work Phone: Glucose [Mass/Vol] 82 mg/dL 74-106 [facility] Work Phone: Potassium [Moles/Vol] 3.4 mmol/L 3.5-5.1 [facility] Work Phone: Sodium [Moles/Vol] 143 mmol/L 136-145 [facility] Work Phone: WBC (Bld) [#/Vol] 10.4 10*3/uL 4.4-11.0 [facility] Work Phone: Blood erythrocytes count (nu mber/volume)on 01-05-2022 RBC (Bld) [#/Vol] 4.27 10*6/uL 4.6-6.2 [facility] Work Phone: Blood hemoglobin measurement (mass/volume)on 01-05-2022 Hemoglobin (Bld) [Mass/Vol] 11.2 g/dL 13.0-16.5 [facility] Work Phone: Blood platelet mean volumeon 01-05-2022 Platelet mean volume (Bld) [Entitic vol] 10.3 fL 6.2-12.0 [facility] Work Phone: Determination of erythrocyte mean corpuscular volume (MCV)on 01-05-2022 MCV (RBC) [Entitic vol] 84.8 fL 80-94 [facility] Work Phone: Hematocrit Auto (Bld) [Volum e fraction]on 01-05-2022 Hematocrit (Bld) [Volume fraction] 36.2 % 40-54 [facility] Work Phone: Laboratory - Chemistry and C hemistry - challengeon 01-05-2022 CO2 [Moles/Vol] 28.0 mmol/L 21.0-32.0 [facility] Work Phone: Urea nitrogen/Creatinine [Mass ratio] 20.0 mg/mg 10-20 [facility] Work Phone: Laboratory - Hematology and Cell countson 01-05-2022 Erythrocyte distribution width (RBC) [Entitic vol] 51.8 fL 35.1-43.9 [facility] Work Phone: Erythrocyte distribution width (RBC) [Ratio] 16.8 % 11.6-14.6 [facility] Work Phone: MCH (RBC) [Entitic mass] 26.2 pg 27.0-32.0 [facility] Work Phone: MCHC Auto (RBC) [Mass/Vol]on 01-05-2022 MCHC (RBC) [Mass/Vol] 30.9 g/dL 32-36 [facility] Work Phone: No Panel Informationon 01-05 Estimated GFR (MDRD) Amer 133 mL/min >60 [facility] Work Phone: Comment on above: GFR Calc Estimated GFR (MDRD) Non-Af Amer 110 mL/min >60 [facility] Work Phone: Comment on above: Non- GFR Calc Platelets bldon 01-05-2022 Platelets (Bld) [#/Vol] 373 10*3/uL 150-450 [facility] Work Phone: Serum or plasma calcium oral urement (mass/volume)on 01-05-2022 Calcium [Mass/Vol] 8.8 mg/dL 8.5-10.1 [facility] Work Phone: Serum or plasma creatinine m easurement (mass/volume)on 01-05-2022 Creatinine [Mass/Vol] 0.75 mg/dL 0.70-1.30 [facility] Work Phone: Comment on above: The validity of the calculated GFR & GFRAA in patients over 70 years has not been determined. Clinical correlation is essential. Serum or plasma urea nitroge n measurement (mass/volume)on 01-05-2022 Urea nitrogen [Mass/Vol] 15 mg/dL 7-18 [facility] Work Phone: Thin prep Papanicolaou smear with manual screeningon 01-05-2022 Thin prep Papanicolaou smear with manual screening 8 5-15 [facility] Work Phone: Laboratory - Coagulationon 0 12-30-2021 INR Coag (Bld) [Relative time] 2.0 {INR} [facility] Work Phone: Comment on above: Critical Value > 4.0 Whole blood prothrombin time on 12-30-2021 PT Coag (Bld) [Time] 23.7 s 11.7-14.9 [facility] Work Phone: Basophil percentageon 2021 Chloride [Moles/Vol] 106 mmol/L 98-107 [facility] Work Phone: Glucose [Mass/Vol] 91 mg/dL 74-106 [facility] Work Phone: Potassium [Moles/Vol] 3.4 mmol/L 3.5-5.1 [facility] Work Phone: Sodium [Moles/Vol] 141 mmol/L 136-145 [facility] Work Phone: WBC (Bld) [#/Vol] 10.2 10*3/uL 4.4-11.0 [facility] Work Phone: Blood erythrocytes count (nu mber/volume)on 12-28-2021 RBC (Bld) [#/Vol] 4.22 10*6/uL 4.6-6.2 [facility] Work Phone: Blood hemoglobin measurement (mass/volume)on 12-28-2021 Hemoglobin (Bld) [Mass/Vol] 11.2 g/dL 13.0-16.5 [facility] Work Phone: Blood platelet mean volumeon 12-28-2021 Platelet mean volume (Bld) [Entitic vol] 10.1 fL 6.2-12.0 [facility] Work Phone: Determination of erythrocyte mean corpuscular volume (MCV)on 12-28-2021 MCV (RBC) [Entitic vol] 82.7 fL 80-94 [facility] Work Phone: Hematocrit Auto (Bld) [Volum e fraction]on 12-28-2021 Hematocrit (Bld) [Volume fraction] 34.9 % 40-54 [facility] Work Phone: Laboratory - Chemistry and C hemistry - challengeon 12-28-2021 CO2 [Moles/Vol] 30.0 mmol/L 21.0-32.0 [facility] Work Phone: Urea nitrogen/Creatinine [Mass ratio] 33.7 mg/mg 10-20 [facility] Work Phone: Laboratory - Hematology and Cell countson 12-28-2021 Erythrocyte distribution width (RBC) [Entitic vol] 49.1 fL 35.1-43.9 [facility] Work Phone: Erythrocyte distribution width (RBC) [Ratio] 16.5 % 11.6-14.6 [facility] Work Phone: MCH (RBC) [Entitic mass] 26.5 pg 27.0-32.0 [facility] Work Phone: MCHC Auto (RBC) [Mass/Vol]on 12-28-2021 MCHC (RBC) [Mass/Vol] 32.1 g/dL 32-36 [facility] Work Phone: No Panel Informationon 12-28 Estimated GFR (MDRD) Amer 174 mL/min >60 [facility] Work Phone: Comment on above: GFR Calc Estimated GFR (MDRD) Non-Af Amer 143 mL/min >60 [facility] Work Phone: Comment on above: Non- GFR Calc Platelets bldon 12-28-2021 Platelets (Bld) [#/Vol] 339 10*3/uL 150-450 [facility] Work Phone: Serum or plasma calcium oral urement (mass/volume)on 12-28-2021 Calcium [Mass/Vol] 8.6 mg/dL 8.5-10.1 [facility] Work Phone: Serum or plasma creatinine m easurement (mass/volume)on 12-28-2021 Creatinine [Mass/Vol] 0.59 mg/dL 0.70-1.30 [facility] Work Phone: Comment on above: The validity of the calculated GFR & GFRAA in patients over 70 years has not been determined. Clinical correlation is essential. Serum or plasma urea nitroge n measurement (mass/volume)on 12-28-2021 Urea nitrogen [Mass/Vol] 20 mg/dL 7-18 [facility] Work Phone: Thin prep Papanicolaou smear with manual screeningon 12-28-2021 Thin prep Papanicolaou smear with manual screening 5 5-15 [facility] Work Phone: CULTURE BLOODon 12-27-2021 Microscopic examination of blood, culture CULTURE BLOOD --> Status: F No growth at 5 days. Normal [facility] Comment on above: Performed By: #### C /BLD #### [facility] [employer] [address] [place] [address] Laboratory - Coagulationon 0 12-26-2021 INR Coag (Bld) [Relative time] 1.7 {INR} [facility] Work Phone: Comment on above: Critical Value > 4.0 Whole blood prothrombin time on 12-26-2021 PT Coag (Bld) [Time] 20.8 s 11.7-14.9 [facility] Work Phone: Basic Metabolic Panelon 12-05 Calcium [Mass/Vol] 8.8 mg/dL Normal 8.4-10.4 [facility] Comment on above: Performed By: #### C RP2, ESR, HEMDF, BMP3 ####[facility] [employer] [place] [address] Anion gap [Moles/Vol] 6 mmol/L Normal 3-13 [facility] Comment on above: Performed By: #### C RP2, ESR, HEMDF, BMP3 ####[facility] Hospital[facility]ges[facility] Pharm[facility] [facility] [place] [address] CO2 [Moles/Vol] 27 mmol/L Normal 22-30 [facility] Comment on above: Performed By: #### C RP2, ESR, HEMDF, BMP3 ####[facility] [id number] [place] [address] Glucose [Mass/Vol] 100 mg/dL Normal 70-100 [facility] Comment on above: Performed By: #### C RP2, ESR, HEMDF, BMP3 ####[employer] [facility] [place] [address] Urea nitrogen [Mass/Vol] 18 mg/dL High 7-17 [facility] Comment on above: Performed By: #### C RP2, ESR, HEMDF, BMP3 ####[facility] Hospital[facility] [id number] [facility] [place] [address] Creatinine [Mass/Vol] 0.73 mg/dL Normal 0.52-1.25 [facility] Comment on above: Performed By: #### C RP2, ESR, HEMDF, BMP3 ####[facility] [id number] [place], [place] eGFR OTHER > 90.0 Normal >60 [facility] Comment on above: Result Comment: KDIG [...] By: #### C RP2, ESR, HEMDF, BMP3 ####[facility] [id number] [place], [place] GFR/1.73 sq M.predicted among blacks MDRD (S/P/Bld) [Vol rate/Area] mL/min/{1.73_m2} Normal >60 [facility] Comment on above: Performed By: #### C RP2, ESR, HEMDF, BMP3 ####[facility] [id number] [place], [place] Potassium [Moles/Vol] 3.7 mmol/L Normal 3.5-5.1 [facility] Comment on above: Performed By: #### C RP2, ESR, HEMDF, BMP3 ####[facility] [id number] [place] Chloride [Moles/Vol] 106 mmol/L Normal 98-107 [facility] Comment on above: Performed By: #### C RP2, ESR, HEMDF, BMP3 ####[facility] [id number] [place], [place] Sodium [Moles/Vol] 139 mmol/L Normal 135-145 [facility] [employer] Comment on above: Performed By: #### C RP2, ESR, HEMDF, BMP3 ####[facility] [id number] [place] [address] Anion gap [Moles/Vol] 6 mmol/L 3 - 13 mmol/L [facility] Calcium [Mass/Vol] 8.8 mg/dL 8.4 - 10. 4 mg/dL [facility] Chloride [Moles/Vol] 106 mmol/L 98 - 10 7 mmol/L [facility] CO2 [Moles/Vol] 27 mmol/L 22 - 30 mmol/L [facility] Creatinine [Mass/Vol] 0.73 mg/dL 0.52 - 1.25 mg/dL [facility] eGFR mL/min 60 - P INF mL/min [facility] EGFR IF NonAfrican Northern Irish mL/min 60 - PINF mL/min [facility] Comment on above: KDIGO guidelines [...] 2021 Basophil percentage 25-50 SEEN /hpf 0-5 [facility] Work Phone: Chloride [Moles/Vol] 106 mmol/L 98-[address] [facility] Work Phone: Glucose [Mass/Vol] 93 mg/dL 74-106 [place] [facility] Work Phone: Potassium [Moles/Vol] 3.5 mmol/L 3.5-5.1 [address] [facility] Work Phone: Sodium [Moles/Vol] 140 mmol/L 136-145 [facility] Work Phone: WBC (Bld) [#/Vol] 9.6 10*3/uL 4.4-11.0 [facility] Work Phone: Bilirubin Test strip Ql (U)o n 12-22-2021 Bilirubin Ql (U) Negative Negative [facility] Work Phone: Blood erythrocytes count (nu mber/volume)on 12-22-2021 RBC (Bld) [#/Vol] 4.34 10*6/uL 4.6-6.2 [place] [facility] Work Phone: Blood hemoglobin measurement (mass/volume)on 12-22-2021 Hemoglobin (Bld) [Mass/Vol] 11.5 g/dL 13.0-16.5 [facility] Work Phone: Blood platelet mean volumeon 12-22-2021 Platelet mean volume (Bld) [Entitic vol] 10.8 fL 6.2-12.0 [facility] Work Phone: C-Reactive Proteinon 022 CRP [Mass/Vol] 27.2 mg/L High 0.0-9.9 [facility] [employer] Comment on above: Result Comment: . Performed By: #### C RP2, ESR, HEMDF, BMP3 ####[employer] [id number] [place] [address] CRP [Mass/Vol] 27.2 mg/L High 0 - 9.9 mg/L [employer] Comment on above: . CBC with Auto [...] - 10.7 10*3/uL [facility] Test Performed by [address] [place] [address] [facility] COVID-[facility], Flu A/B, and RSV C omboon 12-22-2021 Influenza A by PCR Not detected [facility] Influenza B by PCR Not detected [facility] A RSV PCR Not Detected. Expected Result: Not Detected _ Method: Real-time, RT-PCR This assay was developed by [employer] and distributed under an Emergency Use Authorization (EUA) granted by the FDA for the qualitative detection of nucleic acids from SARS-CoV-2, Influenza A, Influenza B, and Respiratory Syncytial Virus. Provider and patient fact sheets can be found at https://www.fda.gov/media /332474/download and https://www.fda.gov/media /528941/download. [facility] SARS-CoV-2 (COVID-19) RNA MEGAN+probe Ql (Unsp spec) Not detected [facility] Test Performed by [address] [address] [facility] CR Foot Complete 3+ Views [place] f[place] 12-22-2021 CR Foot Complete 3+ Views Left Patient Name: ANDREW SIFUENTES Diagnostic Radiology ACCESSION EXAM DATE/TIME PROCEDURE ORDERING PROVIDER [id number] 12/22/2021 00:09 EDT CR Foot Complete 3+ SANDY HIDALGO JOHN M Views Left CPT code 92952 Reason For Exam (CR Foot Complete 3+ [...] Date and Time: 12/22/2021 0:21 Normal [facility] Calcium oxalate crystals det ection in urine sediment by light microscopyon 12-22-2021 Calcium oxalate crystals LM Ql (Urine sed) 1+ /hpf [facility] Work Phone: Determination of erythrocyte mean corpuscular volume (MCV)on 12-22-2021 MCV (RBC) [Entitic vol] 84.3 fL 80-94 [facility] Work Phone: ED Provider Noteon 2 ED [...] leg for a while. According to EMS alf staff completed x-ray of the lower extremity and there was concern for osteomyelitis hence transferring patient to the hospital. Patient states this time the wounds on the left lower extremity for extended period of time. He denies fevers or chills. Patient states alf staff have been taking care of the wound for him. Focused exam: Blood pressure 108/67, pulse 77, temperature 97.9 ?F (36.6 ?C), temperature source Oral, resp. rate 16, height 5' 9 (1.753 m), weight 79.4 kg (175 lb), SpO2 96 %. [id number] in no acute distress. Alert and oriented [...] are mis-transcribed.) Sharon Olivia MD Acute Care [facility] Sharon Olivia MD 12/22/21 0305 [facility] ED Provider Note [facility] EMERGENCY DEPT EMERGENCY DEPARTMENT ENCOUNTER Pt Name: Andrew Sifuentes Birthdate 1950 Date of evaluation: 12/21/2021 Provider: SANIA Lou CHIEF COMPLAINT Chief Complaint Patient presents with Osteomyelitis Patient from [facility] did xrays on left lower leg and and have concerns for possible osteomyelitis A&Ox2 to self and place, stated year 2022 [facility] Miss martini HISTORY OF PRESENT ILLNESS (Location/Symptom, Timing/Onset, Context/Setting, Quality,Duration, Modifying Factors, Severity) Note limiting factors. HPI I have seen this patient With supervising physician Does this patient come from an ECF, SNF, Rehab, Fci or other Congregate setting: no (If yes [...] Hemorrhoids Hydrocephalus, adult (HCC) Kidney stone Neuropathy SHOE RECONDITIONER (ventriculoperitoneal) shunt status SURGICAL HISTORY Past Surgical [...] use: No Sexual activity: Not Currently SCREENINGS [place] Coma Scale Eye Opening: Spontaneous Best Verbal [...] Tenderness: (more content not included)... Normal [facility] Hematocrit Auto (Bld) [Volum e fraction]on 12-22-2021 Hematocrit (Bld) [Volume fraction] 36.6 % 40-54 [facility] Work Phone: Hemogram w/ Autodiffon 12-22 Abs Baso Cnt 0.1 10*3/uL Normal 0.0-0.2 [facility] Comment on above: Performed By: #### C RP2, ESR, HEMDF, BMP3 ####[facility] [place] [address] Abs Neutrophile Cnt 5.9 10*3/uL Normal 1.8-7.0 [facility] Comment on above: Performed By: #### C RP2, ESR, HEMDF, BMP3 ####[address] Basophils/100 WBC (Bld) 0.7 % Normal 0.0-2.0 [facility] Comment on above: Performed By: #### C RP2, ESR, HEMDF, BMP3 ####[address] Eosinophils (Bld) [#/Vol] 0.2 10*3/uL Normal 0.0-0.5 [facility] Comment on above: Performed By: #### C RP2, ESR, HEMDF, BMP3 ####[address] Eosinophils/100 WBC (Bld) 2.3 % Normal 1.0-6.0 [facility] Comment on above: Performed By: #### C RP2, ESR, HEMDF, BMP3 ####[address] Erythrocyte distribution width (RBC) [Ratio] 17.5 % High 11.5-14.5 [facility] Comment on above: Performed By: #### C RP2, ESR, HEMDF, BMP3 ####[address] Granulocytes/100 WBC (Bld) 57.8 % Normal 40.0-80.0 [facility] Comment on above: Performed By: #### C RP2, ESR, HEMDF, BMP3 ####[address] Hematocrit (Bld) [Volume fraction] 33.3 % Low 40.0-52.0 [facility] Comment on above: Performed By: #### C RP2, ESR, HEMDF, BMP3 ####[address] Hemoglobin (Bld) [Mass/Vol] 11.0 g/dL Low 13.0-18.0 [facility] Comment on above: Performed By: #### C RP2, ESR, HEMDF, BMP3 ####[address] [place], [place] Lymphocytes (Bld) [#/Vol] 3.3 10*3/uL Normal 1.0-4.3 [facility] Comment on above: Performed By: #### C RP2, ESR, HEMDF, BMP3 ####[address] [place], [place] Lymphocytes/100 WBC (Bld) 33.0 % Normal 20.0-40.0 [facility] Comment on above: Performed By: #### C RP2, ESR, HEMDF, BMP3 ####[address] MCH (RBC) [Entitic mass] 26.5 pg Normal 26.0-34.0 [facility] Comment on above: Performed By: #### C RP2, ESR, HEMDF, BMP3 ####[address] [place] MCHC 33.1 % Normal 32.0-36.0 [facility] Comment on above: Performed By: #### C RP2, ESR, HEMDF, BMP3 ####[address] [place] MCV (RBC) [Entitic vol] 80.2 fL Normal 80.0-98.0 [facility] Comment on above: Performed By: #### C RP2, ESR, HEMDF, BMP3 ####[address] [place] Monocytes (Bld) [#/Vol] 0.6 10*3/uL Normal 0.0-0.8 [facility] Comment on above: Performed By: #### C RP2, ESR, HEMDF, BMP3 ####[address] [place] Monocytes/100 WBC (Bld) 6.2 % Normal 2.0-10.0 [facility] Comment on above: Performed By: #### C RP2, ESR, HEMDF, BMP3 ####[address] [id number] . [place] Platelet mean volume (Bld) [Entitic vol] 8.0 fL Normal 7.4-12.4 [facility] Comment on above: Result Comment: MPV is a calculated measurement using platelet volume ratio. Performed By: #### C RP2, ESR, HEMDF, BMP3 ####[id number] . [place] Platelets (Bld) [#/Vol] 368 10*3/uL Normal 140-440 [facility] Comment on above: Performed By: #### C RP2, ESR, HEMDF, BMP3 ####[id number] . [place] RBC (Bld) [#/Vol] 4.15 10*6/uL Low 4.40-5.90 [facility] Comment on above: Performed By: #### C RP2, ESR, HEMDF, BMP3 ####[facility] [id number] [place] WBC (Bld) [#/Vol] 10.1 10*3/uL Normal 3.6-10.7 [facility] Comment on above: Performed By: #### C RP2, ESR, HEMDF, BMP3 ####[facility] [id number] [place], [place] Ketones Test strip Ql (U)on 12-22-2021 Ketones Ql (U) Negative Negative [facility] Work Phone: Laboratory - Chemistry and C hemistry - challengeon 12-22-2021 CO2 [Moles/Vol] 27.0 mmol/L 21.0-32.0 [facility] Work Phone: Urea nitrogen/Creatinine [Mass ratio] 22.5 mg/mg 10-20 [facility] Work Phone: Laboratory - Hematology and Cell countson 12-22-2021 Erythrocyte distribution width (RBC) [Entitic vol] 49.1 fL 35.1-43.9 [facility] Work Phone: Erythrocyte distribution width (RBC) [Ratio] 16.1 % 11.6-14.6 [facility] Work Phone: MCH (RBC) [Entitic mass] 26.5 pg 27.0-32.0 [facility] Work Phone: MCHC Auto (RBC) [Mass/Vol]on 12-22-2021 MCHC (RBC) [Mass/Vol] 31.4 g/dL 32-36 [facility] Work Phone: Mucus LM Ql (Urine sed)on Mucus Ql (Urine sed) 0 SEEN /hpf [facility] Work Phone: Nitrite Test strip Ql (U)on 12-22-2021 Nitrite Ql (U) Positive Negative [facility] Work Phone: No Panel Informationon 12-22 Estimated GFR (MDRD) Amer 152 mL/min >60 [facility] Work Phone: Comment on above: GFR Calc Estimated GFR (MDRD) Non-Af Amer 125 mL/min >60 [facility] Work Phone: Comment on above: Non- GFR Calc Interpretation and review of laboratory results Abnormal [facility] Test Performed by [facility], [address] [place] [id number] [facility] Platelets bldon 12-22-2021 Platelets (Bld) [#/Vol] 317 10*3/uL 150-450 [facility] Work Phone: Protein Test strip Ql (U)on 12-22-2021 Protein Ql (U) 30 mg/dl Negative [facility] Work Phone: SARS-CoV-2, Flu A/B and RSVo n 12-22-2021 SARS-CoV-2 (COVID-19) RNA MEGAN+probe Ql (Unsp spec) SARS-CoV-2 --> Status: F Not Detected. Flu A PCR --> Status: F Not Detected. Flu B PCR --> Status: F Not Detected. RSV PCR --> Status: F Not Detected. Expected Result: Not Detected _ Method: Real-time, RT-PCR This assay was developed by [employer] and distributed under an Emergency Use Authorization (EUA) granted by the FDA for the qualitative detection of nucleic acids from SARS-CoV-2, Influenza A, Influenza B, and Respiratory Syncytial Virus. Provider and patient fact sheets can be found at https://www.fda.gov/media /200225/download and https://www.fda.gov/media /942068/download. Expected Result: Not Detected _ Method: Real-time, RT-PCR This assay was developed by [employer] and distributed under an Emergency Use Authorization (EUA) granted by the FDA for the qualitative detection of nucleic acids from SARS-CoV-2, Influenza A, Influenza B, and Respiratory Syncytial Virus. Provider and patient fact sheets can be found at https://www.[employer].gov/media /479141/download and https://www.[employer].gov/media /913758/download. Normal [facility] Comment on above: Performed By: #### C VFLR ####[address] [place] [address], [id number] Sed Rateon 12-22-2021 Sed Rate 48 mm/h High 0-10 [facility] Comment on above: Performed By: #### C RP2, ESR, HEMDF, BMP3 ####[address] [place] [address] Sedimentation Rateon 022 Interpretation and review of laboratory results Abnormal [facility] Sed Rate 48 mm/h High 0 - 10 mm/h [facility] Performed by [facility], [address] [place] [address] [facility] Serum or plasma calcium oral urement (mass/volume)on 12-22-2021 Calcium [Mass/Vol] 8.6 mg/dL 8.5-10.1 [facility] Work Phone: Serum or plasma creatinine m easurement (mass/volume)on 12-22-2021 Creatinine [Mass/Vol] 0.67 mg/dL 0.70-1.30 [facility] Work Phone: Comment on above: The validity of the calculated GFR & GFRAA in patients over 70 years has not been determined. Clinical correlation is essential. Serum or plasma urea nitroge n measurement (mass/volume)on 12-22-2021 Urea nitrogen [Mass/Vol] 15 mg/dL - [facility] Work Phone: Squamous epithelial cells de tection in urine sediment by light microscopyon 12-22-2021 Epithelial cells.squamous LM Ql (Urine sed) 0-5 SEEN /hpf 0-5 [facility] Work Phone: Thin prep Papanicolaou smear with manual screeningon 12-22-2021 Thin prep Papanicolaou smear with manual screening 7 -15 [facility] Work Phone: Urine blood detectionon 12-05 RBC Ql (U) 150 /ul Negative [facility] Work Phone: RBC Ql (U) 10-25 SEEN /hpf 0-5 [facility] Work Phone: Urine clarityon 12-22-2021 Clarity (U) Sl. Cloudy Clear [facility] Work Phone: Urine color determinationon 12-22-2021 Color (U) Yellow Yellow [facility] Work Phone: Urine glucose detectionon Glucose Ql (U) Normal mg/dl Normal [facility] Work Phone: Urine leukocyte esterase det ection by dipstickon 12-22-2021 Leukocyte esterase Test strip Ql (U) 500 /ul Negative [facility] Work Phone: Urine pHon 12-22-2021 pH (U) 6.0 [pH] 5.0 - 8.0 [facility] Work Phone: Urine sediment bacteria coun t by microscopy (number/high power field)on 12-22-2021 Bacteria LM.HPF (Urine sed) [#/Area] 2 /[HPF] None Seen [facility] Work Phone: Urine specific gravity measu rementon 12-22-2021 Specific gravity (U) [Rel density] 1.020 1.002-1.030 [facility] Work Phone: Urobilinogen Auto test strip Ql (U)on 12-22-2021 Urobilinogen Ql (U) Normal mg/dl Normal [facility] Work Phone: XR FOOT LEFT (MIN 3 VIEWS)on 12-22-2021 Patient Name: ANDREW SIFUENTES Diagnostic Radiology ACCESSION EXAM DATE/TIME PROCEDURE ORDERING PROVIDER [id number] 12/22/2021 00:09 EDT CR Foot Complete 3+ SANDY HIDALGO JOHN M Views Left CPT code 81333 Reason For Exam (CR Foot Complete 3+ [...] JEFFREY Transcribed Date and Time: 12/22/2021 0:21 [facility] Albert Solano MD - 12/22/2021 Patient Name: ANDREW SIFUENTES Diagnostic Radiology ACCESSION EXAM DATE/TIME PROCEDURE ORDERING PROVIDER [id number] 12/22/2021 00:09 EDT CR Foot Complete 3+ SANDY HIDALGO JOHN M Views Left CPT code 82352 Reason For Exam (CR Foot Complete 3+ [...] JEFFREY Transcribed Date and Time: 12/22/2021 0:21 [facility] Work Phone: Radiology Study observation (narrative) [facility] Work Phone: XR FOOT LEFT (MIN 3 VIEWS)Or dered By: Albert Solano on 12-22-2021 [facility] Work Phone: Basophil percentageon 2021 Chloride [Moles/Vol] 103 mmol/L 98-[address] [facility] Work Phone: Glucose [Mass/Vol] 92 mg/dL 74-106 [facility] Work [facility]: Potassium [Moles/Vol] 3.5 mmol/L 3.5-5.1 [facility] Work Phone: [phone] Sodium [Moles/Vol] 138 mmol/L 136-145 [place] [facility] Work Phone: WBC (Bld) [#/Vol] 11.2 10*3/uL 4.4-11.0 [place] [facility] Work Phone: Blood erythrocytes count (nu mber/volume)on 12-19-2021 RBC (Bld) [#/Vol] 4.50 10*6/uL 4.6-6.2 [facility] Work Phone: Blood hemoglobin measurement (mass/volume)on 12-19-2021 Hemoglobin (Bld) [Mass/Vol] 12.2 g/dL 13.0-16.5 [facility] Work Phone: Blood platelet mean volumeon 12-19-2021 Platelet mean volume (Bld) [Entitic vol] 11.3 fL 6.2-12.0 [facility] Work Phone: Determination of erythrocyte mean corpuscular volume (MCV)on 12-19-2021 MCV (RBC) [Entitic vol] 85.6 fL 80-94 [facility] Work Phone: Hematocrit Auto (Bld) [Volum e fraction]on 12-19-2021 Hematocrit (Bld) [Volume fraction] 38.5 % 40-54 [facility] Work Phone: Laboratory - Chemistry and C hemistry - challengeon 12-19-2021 CO2 [Moles/Vol] 30.0 mmol/L 21.0-32.0 [facility] Work Phone: Urea nitrogen/Creatinine [Mass ratio] 27.1 mg/mg 10-20 [facility] Work Phone: Laboratory - Hematology and Cell countson 12-19-2021 Erythrocyte distribution width (RBC) [Entitic vol] 50.5 fL 35.1-43.9 [facility] Work Phone: Erythrocyte distribution width (RBC) [Ratio] 16.0 % 11.6-14.6 [facility] Work Phone: MCH (RBC) [Entitic mass] 27.1 pg 27.0-32.0 [facility] Work Phone: MCHC Auto (RBC) [Mass/Vol]on 12-19-2021 MCHC (RBC) [Mass/Vol] 31.7 g/dL 32-36 [facility] Work Phone: No Panel Informationon 12-19 Estimated GFR (MDRD) Amer 153 mL/min >60 [facility] Work Phone: Comment on above: GFR Calc Estimated GFR (MDRD) Non-Af Amer 126 mL/min >60 [facility] Work Phone: Comment on above: Non- GFR Calc Platelets bldon 12-19-2021 Platelets (Bld) [#/Vol] 363 10*3/uL 150-450 [facility] Work Phone: Serum or plasma calcium oral urement (mass/volume)on 12-19-2021 Calcium [Mass/Vol] 9.5 mg/dL 8.5-10.1 [facility] Work Phone: Serum or plasma creatinine m easurement (mass/volume)on 12-19-2021 Creatinine [Mass/Vol] 0.66 mg/dL 0.70-1.30 [facility] Work Phone: Comment on above: The validity of the calculated GFR & GFRAA in patients over 70 years has not been determined. Clinical correlation is essential. Serum or plasma urea nitroge n measurement (mass/volume)on 12-19-2021 Urea nitrogen [Mass/Vol] 18 mg/dL 7-18 [facility] Work Phone: Thin prep Papanicolaou smear with manual screeningon 12-19-2021 Thin prep Papanicolaou smear with manual screening 5 5-15 [facility] Work Phone: Laboratory - Coagulationon 0 12-12-2021 INR Coag (Bld) [Relative time] 2.0 {INR} [facility] Work Phone: Comment on above: Critical Value > 4.0 Whole blood prothrombin time on 12-12-2021 PT Coag (Bld) [Time] 23.9 s 11.7-14.9 [facility] Work Phone: ANES POSTPROC EVALon 022 ANES POSTPROC EVAL Normal [facility] Laboratory - Coagulationon 0 12-08-2021 INR Coag (Bld) [Relative time] 1.8 {INR} [facility] Work Phone: Comment on above: Critical Value > 4.0 Whole blood prothrombin time on 12-08-2021 PT Coag (Bld) [Time] 21.0 s 11.7-14.9 [facility] Work Phone: Absolute lymphocyte counton 12-05-2021 Lymphocytes Auto (Unsp spec) [#/Vol] 2.97 10*3/uL 0.83-4.51 [facility] Work Phone: [phone] Basophil percentageon 2021 Basophils/100 WBC (Bld) 0.6 % 0-1 [facility] Work Phone: Chloride [Moles/Vol] 106 mmol/L 98-107 [facility] Work Phone: Eosinophils/100 WBC (Bld) 2.3 % 0-5 [facility] Work Phone: Glucose [Mass/Vol] 107 mg/dL 74-106 [facility] Work Phone: Comment on above: Fasting Glucose resu lt from 100 to 125 mg/dL suggests IMPAIRED HOMEOSTASIS per A.D.A. criteria. Neutrophils (Bld) [#/Vol] 5.6 10*3/uL 2.0-7.7 [facility] Work Phone: Neutrophils/100 WBC (Bld) 60.2 % 47-70 [facility] Work Phone: Potassium [Moles/Vol] 3.4 mmol/L 3.5-5.1 [facility]: Sodium [Moles/Vol] 139 mmol/L 136-145 [facility] Work Phone: WBC (Bld) [#/Vol] 9.3 10*3/uL 4.4-11.0 [facility] Work Phone: Blood erythrocytes count (nu mber/volume)on 12-05-2021 RBC (Bld) [#/Vol] 4.49 10*6/uL 4.6-6.2 [facility] Work Phone: Blood hemoglobin measurement (mass/volume)on 12-05-2021 Hemoglobin (Bld) [Mass/Vol] 12.1 g/dL 13.0-16.5 [facility] Work Phone: Blood lymphocytes/100 leukoc yteson 12-05-2021 Lymphocytes/100 WBC (Bld) 32.0 % 19-41 [facility] Work Phone: Blood monocytes/100 leukocyt eson 12-05-2021 Monocytes/100 WBC (Bld) 4.7 % 0-10 [facility] Work Phone: Blood platelet mean volumeon 12-05-2021 Platelet mean volume (Bld) [Entitic vol] 10.8 fL 6.2-12.0 [facility] Work Phone: Determination of erythrocyte mean corpuscular volume (MCV)on 12-05-2021 MCV (RBC) [Entitic vol] 84.9 fL 80-94 [facility] Work Phone: Hematocrit Auto (Bld) [Volum e fraction]on 12-05-2021 Hematocrit (Bld) [Volume fraction] 38.1 % 40-54 [facility] Work Phone: INR in Blood by Coagulation assayon 12-05-2021 INR Coag (Bld) [Relative time] 1.8 {INR} [facility] Work Phone: Laboratory - Chemistry and C hemistry - challengeon 12-05-2021 CO2 [Moles/Vol] 29.0 mmol/L 21.0-32.0 [facility] Work Phone: Urea nitrogen/Creatinine [Mass ratio] 25.4 mg/mg 10-20 [facility] Work Phone: Laboratory - Coagulationon 0 12-05-2021 PT Coag (PPP) [Time] 20.5 s 11.7-14.9 [facility] Work Phone: Laboratory - Hematology and Cell countson 12-05-2021 Erythrocyte distribution width (RBC) [Entitic vol] 48.5 fL 35.1-43.9 [facility] Work Phone: Erythrocyte distribution width (RBC) [Ratio] 15.7 % 11.6-14.6 [facility] Work Phone: Immature granulocytes/100 WBC (Bld) 0.200 % 0.0-0.9 [facility] Work Phone: Comment on above: IG% - Immature Granu locytes (promyelocytes, myelocytes and metamyelocytes) > 1% indicates that a LEFT SHIFT is Present. MCH (RBC) [Entitic mass] 26.9 pg 27.0-32.0 [facility] Work Phone: Nucleated RBC/100 WBC (Bld) [Ratio] 0 % 0-5 [facility] Work Phone: MCHC Auto (RBC) [Mass/Vol]on 12-05-2021 MCHC (RBC) [Mass/Vol] 31.8 g/dL 32-36 [facility] Work Phone: No Panel Informationon 12-05 Estimated GFR (MDRD) Amer 133 mL/min >60 [facility] Work Phone: Comment on above: GFR Calc Estimated GFR (MDRD) Non-Af Amer 110 mL/min >60 [facility] Work Phone: Comment on above: Non- GFR Calc Platelets bldon 12-05-2021 Platelets (Bld) [#/Vol] 363 10*3/uL 150-450 [facility] Work Phone: Serum or plasma calcium oral urement (mass/volume)on 12-05-2021 Calcium [Mass/Vol] 9.4 mg/dL 8.5-10.1 [facility] Work Phone: Serum or plasma creatinine m easurement (mass/volume)on 12-05-2021 Creatinine [Mass/Vol] 0.75 mg/dL 0.70-1.30 [facility] Work Phone: Comment on above: The validity of the calculated GFR & GFRAA in patients over 70 years has not been determined. Clinical correlation is essential. Serum or plasma urea nitroge n measurement (mass/volume)on 12-05-2021 Urea nitrogen [Mass/Vol] 19 mg/dL 7-18 [facility] Work Phone: Thin prep Papanicolaou smear with manual screeningon 12-05-2021 Thin prep Papanicolaou smear with manual screening 4 5-15 [facility] Work Phone: Basophil percentageon 2021 Basophil percentage 0 SEEN /hpf 0-5 [facility] Work Phone: Chloride [Moles/Vol] 104 mmol/L 98-107 [facility] Work Phone: Glucose [Mass/Vol] 90 mg/dL 74-106 [facility] Work Phone: Potassium [Moles/Vol] 3.7 mmol/L 3.5-5.1 [facility] Work Phone: Comment on above: Slight Hemolysis, Re sult may be falsely increased. Sodium [Moles/Vol] 138 mmol/L 136-145 [facility] Work Phone: WBC (Bld) [#/Vol] 10.7 10*3/uL 4.4-11.0 [facility] Work Phone: Bilirubin Test strip Ql (U)o n 12-01-2021 Bilirubin Ql (U) Negative Negative [facility] Work Phone: Blood erythrocytes count (nu mber/volume)on 12-01-2021 RBC (Bld) [#/Vol] 4.33 10*6/uL 4.6-6.2 [facility] Work Phone: Blood hemoglobin measurement (mass/volume)on 12-01-2021 Hemoglobin (Bld) [Mass/Vol] 11.6 g/dL 13.0-16.5 [facility] Work Phone: Blood platelet mean volumeon 12-01-2021 Platelet mean volume (Bld) [Entitic vol] 11.2 fL 6.2-12.0 [facility] Work Phone: Determination of erythrocyte mean corpuscular volume (MCV)on 12-01-2021 MCV (RBC) [Entitic vol] 85.2 fL 80-94 [facility] Work Phone: Hematocrit Auto (Bld) [Volum e fraction]on 12-01-2021 Hematocrit (Bld) [Volume fraction] 36.9 % 40-54 [facility] Work Phone: Ketones Test strip Ql (U)on 12-01-2021 Ketones Ql (U) Negative Negative [facility] Work Phone: Laboratory - Chemistry and C hemistry - challengeon 12-01-2021 CO2 [Moles/Vol] 27.0 mmol/L 21.0-32.0 [facility] Work Phone: Urea nitrogen/Creatinine [Mass ratio] 24.0 mg/mg 10-20 [facility] Work Phone: Laboratory - Coagulationon 0 12-01-2021 INR Coag (Bld) [Relative time] 1.6 {INR} [facility] Work Phone: Comment on above: Critical Value > 4.0 Laboratory - Hematology and Cell countson 12-01-2021 Erythrocyte distribution width (RBC) [Entitic vol] 47.9 fL 35.1-43.9 [facility] Work Phone: Erythrocyte distribution width (RBC) [Ratio] 15.5 % 11.6-14.6 [facility] Work Phone: MCH (RBC) [Entitic mass] 26.8 pg 27.0-32.0 [facility] Work Phone: MCHC Auto (RBC) [Mass/Vol]on 12-01-2021 MCHC (RBC) [Mass/Vol] 31.4 g/dL 32-36 [facility] Work Phone: Mucus LM Ql (Urine sed)on Mucus Ql (Urine sed) 0 SEEN /hpf [facility] Work Phone: Nitrite Test strip Ql (U)on 12-01-2021 Nitrite Ql (U) Negative Negative [facility] Work Phone: No Panel Informationon 12-01 Estimated GFR (MDRD) Amer 133 mL/min >60 [facility] Work Phone: Comment on above: GFR Calc Estimated GFR (MDRD) Non-Af Amer 110 mL/min >60 [facility] Work Phone: Comment on above: Non- GFR Calc Platelets bldon 12-01-2021 Platelets (Bld) [#/Vol] 336 10*3/uL 150-450 [facility] Work Phone: Protein Test strip Ql (U)on 12-01-2021 Protein Ql (U) 30 mg/dl Negative [facility] Work Phone: Serum or plasma calcium oral urement (mass/volume)on 12-01-2021 Calcium [Mass/Vol] 9.4 mg/dL 8.5-10.1 [facility] Work Phone: Serum or plasma creatinine m easurement (mass/volume)on 12-01-2021 Creatinine [Mass/Vol] 0.75 mg/dL 0.70-1.30 [facility] Work Phone: Comment on above: The validity of the calculated GFR & GFRAA in patients over 70 years has not been determined. Clinical correlation is essential. Serum or plasma urea nitroge n measurement (mass/volume)on 12-01-2021 Urea nitrogen [Mass/Vol] 18 mg/dL 7-18 [facility] Work Phone: Squamous epithelial cells de tection in urine sediment by light microscopyon 12-01-2021 Epithelial cells.squamous LM Ql (Urine sed) 0-5 SEEN /hpf 0-5 [facility] Work Phone: Thin prep Papanicolaou smear with manual screeningon 12-01-2021 Thin prep Papanicolaou smear with manual screening 7 5-15 [facility] Work Phone: Urine blood detectionon 11-05 RBC Ql (U) Negative Negative [facility] Work Phone: RBC Ql (U) 0 SEEN /hpf 0-5 [facility] Work Phone: Urine clarityon 12-01-2021 Clarity (U) Clear Clear [facility] Work Phone: Urine color determinationon 12-01-2021 Color (U) Yellow Yellow [facility] Work Phone: Urine glucose detectionon Glucose Ql (U) 50 mg/dl Normal [facility] Work Phone: Urine leukocyte esterase det ection by dipstickon 12-01-2021 Leukocyte esterase Test strip Ql (U) Negative Negative [facility] Work Phone: Urine pHon 12-01-2021 pH (U) 6.0 [pH] 5.0 - 8.0 [facility] Work Phone: Urine sediment bacteria coun t by microscopy (number/high power field)on 12-01-2021 Bacteria LM.HPF (Urine sed) [#/Area] 0 /[HPF] None Seen [facility] Work Phone: Urine sediment yeast count b y microscopy (number/high powered field)on 12-01-2021 Yeast LM.HPF (Urine sed) [#/Area] 2 /[HPF] None Seen [facility] Work Phone: Urine specific gravity measu rementon 12-01-2021 Specific gravity (U) [Rel density] 1.010 1.002-1.030 [facility] Work Phone: Urobilinogen Auto test strip Ql (U)on 12-01-2021 Urobilinogen Ql (U) Normal mg/dl Normal [facility] Work Phone: Whole blood prothrombin time on 12-01-2021 PT Coag (Bld) [Time] 19.8 s 11.7-14.9 [facility] Work Phone: Laboratory - Coagulationon 0 11-28-2021 INR Coag (Bld) [Relative time] 1.6 {INR} [facility] Work Phone: Comment on above: Critical Value > 4.0 Whole blood prothrombin time on 11-28-2021 PT Coag (Bld) [Time] 18.8 s 11.7-14.9 [facility] Work Phone: INR in Blood by Coagulation assayon 11-23-2021 INR Coag (Bld) [Relative time] 2.7 {INR} [facility] Work Phone: Laboratory - Coagulationon 0 11-23-2021 PT Coag (PPP) [Time] 28.0 s 11.7-14.9 [facility] Work Phone: Laboratory - Coagulationon 0 11-22-2021 INR Coag (Bld) [Relative time] 3.8 {INR} [facility] Work Phone: Comment on above: Critical Value > 4.0 Whole blood prothrombin time on 11-22-2021 PT Coag (Bld) [Time] 42.8 s 11.7-14.9 [facility] Work Phone: INR in Blood by Coagulation assayon 11-21-2021 INR Coag (Bld) [Relative time] 3.9 {INR} [facility] Work Phone: Laboratory - Coagulationon 0 11-21-2021 PT Coag (PPP) [Time] 37.7 s 11.7-14.9 [facility] Work Phone: Whole blood prothrombin time on 11-21-2021 PT Coag (Bld) [Time] 45.5 s 11.7-14.9 [facility] Work Phone: INR in Blood by Coagulation assayon 11-14-2021 INR Coag (Bld) [Relative time] 3.1 {INR} [facility] Work Phone: Laboratory - Coagulationon 0 11-14-2021 PT Coag (PPP) [Time] 31.4 s 11.7-14.9 [facility] Work Phone: Laboratory - Coagulationon 0 11-08-2021 INR Coag (Bld) [Relative time] 2.5 {INR} [facility] Work Phone: Comment on above: Critical Value > 4.0 Whole blood prothrombin time on 11-08-2021 PT Coag (Bld) [Time] 29.0 s 11.7-14.9 [facility] Work Phone: Basophil percentageon 2021 Chloride [Moles/Vol] 106 mmol/L 98-107 [facility] Work Phone: Glucose [Mass/Vol] 100 mg/dL 74-106 [facility] Work Phone: Comment on above: Fasting Glucose resu lt from 100 to 125 mg/dL suggests IMPAIRED HOMEOSTASIS per A.D.A. criteria. Potassium [Moles/Vol] 3.7 mmol/L 3.5-5.1 [facility] Work Phone: Sodium [Moles/Vol] 140 mmol/L 136-145 [facility] Work Phone: WBC (Bld) [#/Vol] 8.8 10*3/uL 4.4-11.0 [facility] Work Phone: Blood erythrocytes count (nu mber/volume)on 11-04-2021 RBC (Bld) [#/Vol] 4.05 10*6/uL 4.6-6.2 [facility] Work Phone: Blood hemoglobin measurement (mass/volume)on 11-04-2021 Hemoglobin (Bld) [Mass/Vol] 11.1 g/dL 13.0-16.5 [facility] Work Phone: Blood platelet mean volumeon 11-04-2021 Platelet mean volume (Bld) [Entitic vol] 10.8 fL 6.2-12.0 [facility] Work Phone: Determination of erythrocyte mean corpuscular volume (MCV)on 11-04-2021 MCV (RBC) [Entitic vol] 86.9 fL 80-94 [facility] Work Phone: Hematocrit Auto (Bld) [Volum e fraction]on 11-04-2021 Hematocrit (Bld) [Volume fraction] 35.2 % 40-54 [facility] Work Phone: INR in Blood by Coagulation assayon 11-04-2021 INR Coag (Bld) [Relative time] 1.8 {INR} [facility] Work Phone: Laboratory - Chemistry and C hemistry - challengeon 11-04-2021 CO2 [Moles/Vol] 26.0 mmol/L 21.0-32.0 [facility] Work Phone: Urea nitrogen/Creatinine [Mass ratio] 18.3 mg/mg 10-20 [facility] Work Phone: Laboratory - Coagulationon 0 11-04-2021 PT Coag (PPP) [Time] 20.4 s 11.7-14.9 [facility] Work Phone: Laboratory - Hematology and Cell countson 11-04-2021 Erythrocyte distribution width (RBC) [Entitic vol] 48.1 fL 35.1-43.9 [facility] Work Phone: Erythrocyte distribution width (RBC) [Ratio] 15.0 % 11.6-14.6 [facility] Work Phone: MCH (RBC) [Entitic mass] 27.4 pg 27.0-32.0 [facility] Work Phone: MCHC Auto (RBC) [Mass/Vol]on 11-04-2021 MCHC (RBC) [Mass/Vol] 31.5 g/dL 32-36 [facility] Work Phone: No Panel Informationon 11-04 D-Dimer Quantitative (PE/DVT) 0.56 FEU/ug/m 0.27-0.49 [facility] Work Phone: Comment on above: D-Dimer ELEVATED (>0 .49): Additional studies and clinicalassessments are indicated to conclude diagnosis of:Deep Vein Thrombosis (DVT) or Pulmonary Embolism (PE) Estimated GFR (MDRD) Amer 155 mL/min >60 [facility] Work Phone: Comment on above: GFR Calc Estimated GFR (MDRD) Non-Af Amer 128 mL/min >60 [facility] Work Phone: Comment on above: Non- GFR Calc Troponin I High Sensitivity 11 pg/mL 3.0-78.0 [facility] Work Phone: Comment on above: Please Note: New Fadumo t Units and Gender Specific Reference Ranges. For more information see Policy Stat Procedure [place] High Sensitivity Troponin (TNIH) and attachments. Platelets bldon 11-04-2021 Platelets (Bld) [#/Vol] 364 10*3/uL 150-450 [facility] Work Phone: Serum or plasma C reactive p rotein measurement (mass/volume)on 11-04-2021 CRP [Mass/Vol] 31.90 mg/L 0.0-3.0 [facility] Work Phone: Comment on above: C-Reactive Protein ( CRP) provides useful information for thediagnosis, therapy and monitoring of inflammatory processesand associated diseases. For the evaluation of Relative Riskfor Cardiovascular Disease, a High Sensitivity CRP (HSCRP)should be ordered. Serum or plasma calcium oral urement (mass/volume)on 11-04-2021 Calcium [Mass/Vol] 9.1 mg/dL 8.5-10.1 oste r [facility] Work Phone: Serum or plasma creatinine m easurement (mass/volume)on 11-04-2021 Creatinine [Mass/Vol] 0.66 mg/dL 0.70-1.30 [facility] Work Phone: Comment on above: The validity of the calculated GFR & GFRAA in patients over 70 years has not been determined. Clinical correlation is essential. Serum or plasma urea nitroge n measurement (mass/volume)on 11-04-2021 Urea nitrogen [Mass/Vol] 12 mg/dL 7-18 [facility] Work Phone: Thin prep Papanicolaou smear with manual screeningon 11-04-2021 Thin prep Papanicolaou smear with manual screening 8 5-15 [facility] Work Phone: Complete Urinalysison 2021 Appearance (U) Clear Normal Clear [facility] [employer] Comment on above: Result Comment: . Performed By: #### C UA2 ####[employer] [id number] [place], [place] Bacteria Moderate Abnormal Negative [facility] [employer] Comment on above: Result Comment: . Performed By: #### C UA2 ####[employer] [id number] [place], [place] Bilirubin,Urine Negative Normal Negative [facility] [employer] Comment on above: Result Comment: . Performed By: #### C UA2 ####[employer] [id number] [place], [place] Cast, Hyaline Negative Normal Negative [facility] [employer] Comment on above: Result Comment: . Performed By: #### C UA2 ####[address] [place], [place] Color (U) Yellow Normal Lt. Yellow [facility] [employer] Comment on above: Result Comment: . Performed By: #### C UA2 ####[employer] [id number] [place], [place] Glucose Ql (U) Normal Normal Normal (<70) [facility] Comment on above: Result Comment: . Performed By: #### C UA2 ####[employer] [id number] [facility]. [place], [place] Ketone,Urine Negative Normal Negative [facility] [employer] Comment on above: Result Comment: . Performed By: #### C UA2 ####[employer] [id number] [place] Leukocytes,Urine Negative Normal Negative [facility] Comment on above: Result Comment: . Performed By: #### C UA2 ####[place] [id number] [place] Mucous Threads Few Normal Negative [facility] Comment on above: Result Comment: . Performed By: #### C UA2 ####[id number] . [place] Nitrites,Urine Negative Normal Negative [facility] Comment on above: Result Comment: . Performed By: #### C UA2 ####[address] [place] Occult Blood,Urine 0.1 mg/dL Abnormal Negative [facility] Comment on above: Result Comment: . Performed By: #### C UA2 ####[address] pH,Urine 5.5 Normal 5.0-8.0 [facility] Comment on above: Result Comment: . Performed By: #### C UA2 ####[address] [place], [place] Protein (U) [Mass/Vol] 10 mg/dL Abnormal Negative [facility] Comment on above: Result Comment: . Performed By: #### C UA2 ####[id number] . [place] RBC, Urine 26 - 50 Abnormal 0-2 [facility] Comment on above: Result Comment: . Performed By: #### C UA2 ####[address] Specific [place],Urine 1.023 Normal 1.005 - 1.030 [facility] Comment on above: Result Comment: . Performed By: #### C UA2 ####[address] Squamous Epithelial Negative Normal 3-5 [facility] Comment on above: Result Comment: . Performed By: #### C UA2 ####[address] Urobilinogen,Urine Normal Normal Normal (0-1) [facility] Comment on above: Result Comment: . Performed By: #### C UA2 ####[facility] [place] [address] WBC, Urine 0 - 2 Normal 0-5 [facility] Comment on above: Result Comment: . Performed By: #### C UA2 ####[facility] [facility] [place] [address] Urinalysison 11-01-2021 Appearance (U) Clear Clear NA [...] Protein (U) [Mass/Vol] 10 mg/dL Abnormal Negative [facility] Comment on above: . RBC, UA 26-50 Abnormal 0 - 2 /[HPF] [facility] Comment on above: . Specific [place], Urine 1.023 [facility] Comment on above: . Squam Epithel, UA Negative 3 - 5 /[HPF] [facility] Comment on above: . Urobilinogen, Urine Normal Normal ( 0-1) mg/dL [facility] Comment on above: . WBC, UA 0-2 0 - 5 /[HPF] [facility] Comment on above: . Test Performed by [facility], [address] [place] [address] [facility] Basic Metabolic Panelon 10-06 Anion gap [Moles/Vol] 6 mmol/L Normal 3-13 [facility] Comment on above: Performed By: #### P T/AP, TROPN, BMP3, HEMDF #### [facility] [address] [place], [place] Calcium [Mass/Vol] 9.1 mg/dL Normal 8.4-10.4 [facility] Comment on above: Performed By: #### P T/AP, TROPN, BMP3, HEMDF #### [facility] [address] [place], [place] CO2 [Moles/Vol] 28 mmol/L Normal 22-30 [facility] Comment on above: Performed By: #### P T/AP, TROPN, BMP3, HEMDF #### [facility] [address] [place], [place] Glucose [Mass/Vol] 120 mg/dL High 70-100 [facility] Comment on above: Performed By: #### P T/AP, TROPN, BMP3, HEMDF #### [place] [place], [place] Urea nitrogen [Mass/Vol] 17 mg/dL Normal 7-17 [facility] Comment on above: Performed By: #### P T/AP, TROPN, BMP3, HEMDF #### [facility] [address] [place], [place] Creatinine [Mass/Vol] 0.65 mg/dL Normal 0.52-1.25 [facility] Comment on above: Performed By: #### P T/AP, TROPN, BMP3, HEMDF #### [facility] [address] [place], [place] eGFR OTHER > 90.0 Normal >60 [facility] Comment on above: Result Comment: KDIG [...] #### P T/AP, TROPN, BMP3, HEMDF #### [place] [address] [place], [place] GFR/1.73 sq M.predicted among blacks MDRD (S/P/Bld) [Vol rate/Area] mL/min/{1.73_m2} Normal >60 [facility] Comment on above: Performed By: #### P T/AP, TROPN, BMP3, HEMDF #### [place] [address] [address] [place], [place] Potassium [Moles/Vol] 3.8 mmol/L Normal 3.5-5.1 [facility] Comment on above: Performed By: #### P T/AP, TROPN, BMP3, HEMDF #### [place] [address] [address] [place], [place] Chloride [Moles/Vol] 101 mmol/L Normal 98-107 [facility] Comment on above: Performed By: #### P T/AP, TROPN, BMP3, HEMDF #### [place] [place], [place] Sodium [Moles/Vol] 134 mmol/L Low 135-145 [facility] Comment on above: Performed By: #### P T/AP, TROPN, BMP3, HEMDF #### [place] [place], [place] Anion gap [Moles/Vol] 6 mmol/L 3 - 13 mmol/L [facility] Calcium [Mass/Vol] 9.1 mg/dL 8.4 - 10. 4 mg/dL [facility] Chloride [Moles/Vol] 101 mmol/L 98 - 10 7 mmol/L [facility] CO2 [Moles/Vol] 28 mmol/L 22 - 30 mmol/L [facility] Creatinine [Mass/Vol] 0.65 mg/dL 0.52 - 1.25 mg/dL [facility] EGFR IF NonAfrican Northern Irish >90.0 >60 mL/min [facility] Comment on above: KDIGO guidelines [...] [Mass/Vol] 17 mg/dL 7 - 17 mg/dL [facility] Test Performed by [facility], [address] [place] [id number] [place] [address] [facility] CBC with Auto Differentialon 10-31-2021 [...] - 10.7 10*3/uL [facility] Test Performed by [address] [facility] CR Abdomen APon 10-31-2021 CR Abdomen AP Patient Name: ANDREW SIFUENTES Diagnostic Radiology ACCESSION EXAM DATE/TIME PROCEDURE ORDERING PROVIDER [id number] 10/31/2021 20:36 EDT CR Abdomen AP [id number] -MYRON DURAN CPT code 95367 Reason For Exam (CR Abdomen AP) vp [...] Date and Time: 10/31/2021 8:49 Normal [facility] CR Chest Portableon 11-01-19 22 CR Chest Portable [id number] Diagnostic Radiology ACCESSION EXAM DATE/TIME PROCEDURE ORDERING PROVIDER [id number] 10/31/2021 20:36 EDT CR Chest Portable [id number] MYRON GALINDO CPT code 00122 Reason For Exam (CR Chest Portable) AMS [...] Date and Time: 10/31/2021 8:[address] [facility] CT HEAD WO CONTRASTon 2021 Patient Name: ANDREW SIFUENTES Computed Tomography ACCESSION EXAM DATE/TIME PROCEDURE ORDERING PROVIDER [id number] 10/31/2021 20:[address] Head or Brain w/o [id number] -MYRON DURAN Contrast CPT code 29519 Reason For Exam (CT Head or Brain w/o Contrast) AMS, previous SHOE RECONDITIONER shunt Report Examination: CT Head Clinical Information: AMS, previous SHOE RECONDITIONER shunt Comparison: 10/26/2021, MRI 10/27/2021 Findings: Serial [...] J Transcribed Date and Time: 10/31/2021 8:54 [facility] Alan Wong MD - 10/31/2021 Patient Name: [id number] Computed Tomography ACCESSION EXAM DATE/TIME PROCEDURE ORDERING PROVIDER [id number] 10/31/2021 20:[address] Head or Brain w/o [id number] -MYRON DURAN Contrast CPT code 29683 Reason For Exam (CT Head or Brain w/o Contrast) AMS, previous SHOE RECONDITIONER shunt Report Examination: CT Head Clinical Information: AMS, previous SHOE RECONDITIONER shunt Comparison: 10/26/2021, MRI 10/27/2021 Findings: Serial [...] Name: [id number] Computed Tomography ACCESSION EXAM DATE/TIME PROCEDURE ORDERING PROVIDER [id number] 10/31/2021 20:[address] Head or Brain w/o [id number] -DURAN, MYRON Contrast CPT code 23487 Reason For Exam (CT Head or Brain w/o Contrast) AMS, previous SHOE RECONDITIONER shunt Report Examination: CT Head Clinical Information: AMS, previous SHOE RECONDITIONER shunt Comparison: 10/26/2021, MRI 10/27/2021 Findings: Serial [...] Date and Time: 10/31/2021 8:54 Normal [facility] ED Provider Noteon ED Provider Note Emergency Department Encounter [facility] Patient: Andrew Sifuentes : [...] is cooperative and calm. According to the alf, he has been more lethargic than normal, [...] Solutions Dante Kim MD 10/31/21 2211 Normal [facility] ED Provider Note [facility] EMERGENCY DEPARTMENT ENCOUNTER Pt Name: Andrew Sifuentes Birthdate 1950 Date of evaluation: 10/31/2021 Provider: Myron Duran MD CHIEF COMPLAINT Chief Complaint Patient presents with ? Altered Mental Status Pt presents to ED via [facility] for complaint listed. Pt is from [place] [facility]. Pt's LKW was 1000 hours [...] have a history of hydrocephalus with a SHOE RECONDITIONER shunt. 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 REVIEW OF [...] (HCC) ? Kidney stone ? Neuropathy ? SHOE RECONDITIONER (ventriculoperitoneal) shunt status SURGICAL HISTORY Past Surgical [...] Transportati (more content not included)... 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 : 1950 Requested By: MYRON DURAN Order Number: [id number] Reading MD: Dante Kim Measurements Intervals [place] Rate: 91 P: 41 IL: 154 QRS: 50 QRSD: 147 T: 8 QT: 385 QTc: 474 Interpretive Statements Sinus rhythm Right bundle branch block Electronically Signed On 10-31-2021 20:36:25 EDT by Dante Kim [facility] Dante Kim M D - 10/31/2021 [facility] Test Date: 2021-10-31 Pat Name: ANDREW SIFUENTES Department: [facility] Room: 40 Gender: M 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 : 1950 Requested By: MYRON DURAN Order Number: [id number] Reading MD: Dante Kim Measurements Intervals [place] Rate: 91 P: 41 IL: 154 QRS: 50 QRSD: 147 T: 8 QT: 385 QTc: 474 Interpretive Statements Sinus rhythm Right bundle branch block Electronically Signed On 10-31-2021 20:36:25 EDT by Dante Kim [facility] Work Phone: EKG 12 Lead - Chest PainOrde red By: aDnte Kim on 10-31-2021 [facility] Work Phone: Hemogram w/ Autodiffon 10-31 Abs Baso Cnt 0.1 10*3/uL Normal 0.0-0.2 [facility] Comment on above: Performed By: #### P T/AP, TROPN, BMP3, HEMDF #### [facility] [address] [place] [address] Abs Neutrophile Cnt 6.0 10*3/uL Normal 1.8-7.0 [facility] Comment on above: Performed By: #### P T/AP, TROPN, BMP3, HEMDF #### [place] [place], [place] Basophils/100 WBC (Bld) 1.1 % Normal 0.0-2.0 [facility] Comment on above: Performed By: #### P T/AP, TROPN, BMP3, HEMDF #### [address] [address] [place], [place] Eosinophils (Bld) [#/Vol] 0.2 10*3/uL Normal 0.0-0.5 [facility] Comment on above: Performed By: #### P T/AP, TROPN, BMP3, HEMDF #### [address] Eosinophils/100 WBC (Bld) 2.3 % Normal 1.0-6.0 [facility] Comment on above: Performed By: #### P T/AP, TROPN, BMP3, HEMDF #### [address] Erythrocyte distribution width (RBC) [Ratio] 17.2 % High 11.5-14.5 [facility] Comment on above: Performed By: #### P T/AP, TROPN, BMP3, HEMDF #### [address] Granulocytes/100 WBC (Bld) 61.8 % Normal 40.0-80.0 [facility] Comment on above: Performed By: #### P T/AP, TROPN, BMP3, HEMDF #### [place] [address] [address] [place], [place] Hematocrit (Bld) [Volume fraction] 35.0 % Low 40.0-52.0 [facility] Comment on above: Performed By: #### P T/AP, TROPN, BMP3, HEMDF #### [address] [address] [place] Hemoglobin (Bld) [Mass/Vol] 11.3 g/dL Low 13.0-18.0 [facility] Comment on above: Performed By: #### P T/AP, TROPN, BMP3, HEMDF #### [place] [place], [place] Lymphocytes (Bld) [#/Vol] 2.8 10*3/uL Normal 1.0-4.3 [facility] Comment on above: Performed By: #### P T/AP, TROPN, BMP3, HEMDF #### [place] [address] [place], [place] Lymphocytes/100 WBC (Bld) 29.2 % Normal 20.0-40.0 [facility] Comment on above: Performed By: #### P T/AP, TROPN, BMP3, HEMDF #### [address] [address] [place] MCH (RBC) [Entitic mass] 27.5 pg Normal 26.0-34.0 [facility] Comment on above: Performed By: #### P T/AP, TROPN, BMP3, HEMDF #### [address] [address] [place] MCHC 32.3 % Normal 32.0-36.0 [facility] Comment on above: Performed By: #### P T/AP, TROPN, BMP3, HEMDF #### [address] [place], [place] MCV (RBC) [Entitic vol] 85.0 fL Normal 80.0-98.0 [facility] Comment on above: Performed By: #### P T/AP, TROPN, BMP3, HEMDF #### [place] [address] [place], [place] Monocytes (Bld) [#/Vol] 0.5 10*3/uL Normal 0.0-0.8 [facility] Comment on above: Performed By: #### P T/AP, TROPN, BMP3, HEMDF #### [address] Monocytes/100 WBC (Bld) 5.6 % Normal 2.0-10.0 [facility] Comment on above: Performed By: #### P T/AP, TROPN, BMP3, HEMDF #### [place] [address] [place], [place] Platelet mean volume (Bld) [Entitic vol] 8.6 fL Normal 7.4-12.4 [facility] Comment on above: Result Comment: MPV is a calculated measurement using platelet volume ratio. Performed By: #### P T/AP, TROPN, BMP3, HEMDF #### [facility] [address] [place], [place] Platelets (Bld) [#/Vol] 348 10*3/uL Normal 140-440 [facility] Comment on above: Performed By: #### P T/AP, TROPN, BMP3, HEMDF #### [place] [place], [place] RBC (Bld) [#/Vol] 4.12 10*6/uL Low 4.40-5.90 [facility] Comment on above: Performed By: #### P T/AP, TROPN, BMP3, HEMDF #### [facility] [address] [place], [place] WBC (Bld) [#/Vol] 9.7 10*3/uL Normal 3.6-10.7 [facility] Comment on above: Performed By: #### P T/AP, TROPN, BMP3, HEMDF #### [facility] [address] [place], [place] Laboratory - Coagulationon 0 10-31-2021 INR Coag (Bld) [Relative time] 2.0 {INR} [facility] Work Phone: Comment on above: Critical Value > 4.0 No Panel Informationon 10-31 Radiology Study observation (narrative) [facility] Work Phone: PROTIME/INR & PTTon 11-01-19 22 aPTT Coag (Bld) [Time] 39.2 s High 20.0 - 30.5 s [facility] Comment on above: NOTE: The therapeuti c time for Heparin anticoagulation, based on Xa activity inhibition, is an APTT of 46-80 seconds. INR Coag (Bld) [Relative time] 1.9 {INR} High [facility] Comment on above: Recommended Anticoag [...] Interpretation and review of laboratory results Abnormal [facility] PT Coag (PPP) [Time] 19.8 s High 9.0 - 12.0 s [facility] Comment on above: . Test Performed by [facility], [address] [place] [address] - [facility] Protime AND APTTon 2 aPTT Coag (Bld) [Time] 39.2 s High 20.0-30.[address] [facility] Comment on above: Result Comment: NOTE : The therapeutic time for Heparin anticoagulation, based on Xa activity inhibition, is an APTT of 46-80 seconds. Performed By: #### P T/AP, TROPN, BMP3, HEMDF #### [address] [address] INR 1.9 High 0.9-1.1 [facility] Comment on above: Result Comment: Harry [...] P T/AP, TROPN, BMP3, HEMDF #### [facility] [address] [place] [address] PT Coag (PPP) [Time] 19.8 s High 9.0-12.0 [facility] Comment on above: Result Comment: . Performed By: #### P T/AP, TROPN, BMP3, HEMDF #### [facility] [address] [place] [address] Troponin Ion 10-31-2021 Troponin I.cardiac [Mass/Vol] ng/mL Normal 0.000-0.034 [facility] Comment on above: Result Comment: . Performed By: #### P T/AP, TROPN, BMP3, HEMDF #### [facility] [address] [place] [address] Troponin x1on 10-31-2021 Troponin I.cardiac [Mass/Vol] ng/mL 0.000 - 0.034 ng/mL [facility] Comment on above: . Test Performed by [facility], [address] [place] [address] [facility] Whole blood prothrombin time on 10-31-2021 PT Coag (Bld) [Time] 23.7 s 11.7-14.9 [facility] Work Phone: XR ABDOMEN (KUB) (SINGLE AP VIEW)on 10-31-2021 Patient Name: ANDREW SIFUENTES Diagnostic Radiology ACCESSION EXAM DATE/TIME PROCEDURE ORDERING PROVIDER [id number] 10/31/2021 20:36 EDT CR Abdomen AP [id number] -MYRON DURAN CPT code 30451 Reason For Exam (CR Abdomen AP) vp [...] WENDELL Transcribed Date and Time: 10/31/2021 8:49 [facility] - 10/31/2021 Patient Name: ANDREW SIFUENTES Diagnostic Radiology ACCESSION EXAM DATE/TIME PROCEDURE ORDERING PROVIDER [id number] 10/31/2021 20:36 EDT CR Abdomen AP [id number] -DURAN MYRON CPT code 51898 Reason For Exam (CR Abdomen AP) vp [...] and Time: 10/31/2021 8:49 [facility] Work Phone: [facility] Work Phone: XR CHEST PORTABLEon 11-01-19 Patient Name: ANDREW SIFUENTES Diagnostic Radiology ACCESSION EXAM DATE/TIME PROCEDURE ORDERING PROVIDER [id number] 10/31/2021 20:36 EDT CR Chest Portable [id number] PERDOMO CPT code 27596 Reason For Exam (CR Chest Portable) AMS [...] WENDELL Transcribed Date and Time: 10/31/2021 8:49 [facility] Huang Reynoso MD - 10/31/2021 Patient Name: ANDREW SIFUENTES Diagnostic Radiology ACCESSION EXAM DATE/TIME PROCEDURE ORDERING PROVIDER [id number] 10/31/2021 20:36 EDT CR Chest Portable [id number] MYRON GALINDO CPT code 85865 Reason For Exam (CR Chest Portable) AMS [...] WENDELL Transcribed Date and Time: 10/31/2021 8:49 [facility] Work Phone: XR CHEST PORTABLEOrdered By: Huang eRynoso on 10-31-2021 [facility] Work Phone: Lupus Anticoagulanton 2021 DRVVT Confirmation Test Not Applicable Negative ratio [facility] Work Phone: dRVVT Screen 38 [facility] Work Phone: Hex Phosph Neut Test Not Applicable Negative NA [facility] Work Phone: Interpretation and review of laboratory results Abnormal [facility] Work Phone: LUPUS INTERPRETATION See Note [facility] Work Phone: Comment on above: Lupus [...] has not already been performed. Performed by [employer], [address], [facility] [place] [address] [email or web address], Quiana Casrto MD - Lab. Director Platelet Neutralization Not Applicable Negative NA [facility] Work Phone: PTT-D Heparin Neutralized 48 [facility] Work Phone: PTT-LA 55 High [facility] Work Phone: Reptilase Tm 17.6 <=21.9 sec [facility] Work Phone: Thrombin Time 25.3 High [facility] Work Phone: [facility] Work Phone: Lupus Anticoagulant Reflexiv e Panelon 10-29-2021 aPTT Coag (Bld) [Time] 55 s High 32-48 [facility] Comment on above: Performed By: #### C OVAG #### [facility] [address] [place] [address] aPTT Coag (Bld) [Time] 48 s Normal 32-48 [facility] Comment on above: Performed By: #### C OVAG #### [facility] [address] [place] [address] DRVVT 1:1 Mix Not Applicable Normal 33-44 [facility] Work Phone: Comment on above: Performed By: #### C OVAG #### [facility] [address] [place] [address] dRVVT Confirmation Not Applicable Normal Negative [facility] Comment on above: Performed By: #### C OVAG #### [facility] [address] [place] [address] dRVVT Screen 38 sec Normal 33-44 [facility] Comment on above: Performed By: #### C OVAG #### [facility] [address] [place] [address] Hexagonal Phospholipid Neutral Reflex Not Applicable Normal Negative [facility] Comment on above: Performed By: #### C OVAG #### [facility] [address] [place] [address] Lupus Anticoagulant Interpretation See Note Normal [facility] Comment on above: Result Comment: Lupu [...] has not already been performed. Performed by [employer], [address] [place] [phone] [email or web address], Quiana Castro MD - Lab. Director Performed By: #### C OVAG #### [facility] [address] [place] [address] Platelet Neutralization (PTT-D, Confirm) Not Applicable Normal Negative [facility] Comment on above: Performed By: #### C OVAG #### [facility] [address] [facility] [place] [address] PT Coag (PPP) [Time] 14.7 s Normal 12.0-15.5 [facility] Work Phone: Comment on above: Performed By: #### C OVAG #### [facility] [address] [facility] [place] [address] PTT-D 1:1 Mix Not Applicable Normal 32-48 [facility] Work Phone: Comment on above: Performed By: #### C OVAG #### [facility] [address] [facility] [place] [address] Reptilase Time 17.6 sec Normal <=21.9 [facility] Comment on above: Performed By: #### C OVAG #### [facility] [address] [facility] [place] [address] Thrombin Time 25.3 sec High 14.7-19.5 [facility] Comment on above: Performed By: #### C OVAG #### [facility] [address] [place] [address] POCT COVID-19, Antigenon SARS-CoV-2 Nucleocapsid Antigen Negative Negative NA [facility] Comment on above: A negative result does not rule out the possibility of SARS-CoV-2 infection. NAAT-based methods should be considered for symptomatic patients presenting greater than seven days after onset of symptoms. Method: Lateral flow immunoassay. Fact sheets for healthcare providers and patients can be found at the following sites: https://www.Magaz[employer].gov/media/271655/download https://www.Magazino.gov/media/432935/download Test Performed by [facility], [address] [place], [place] [address] [facility] Prothrombin Timeon INR 2.7 High 0.9-1.1 [facility] Comment on above: Result Comment: Harry [...] Performed By: #### P T #### [facility] [address] [place] [address] PT Coag (PPP) [Time] 27.4 s High 9.0-12.0 [facility] Comment on above: Result Comment: . Performed By: #### P T #### [facility] [address] [place] [address] Protime-INRon 10-29-2021 INR Coag (Bld) [Relative time] 2.7 {INR} High [facility] Work Phone: Comment on above: [...] Interpretation and review of laboratory results Abnormal [facility] Work Phone: 1 PT Coag (PPP) [Time] 27.4 s High 9.0 - 12.0 s [facility] Work Phone: Comment on above: . Test Performed by [facility], [address], [place], [place] [address] [facility] Work Phone: SARS-CoV-2 Antigenon 022 SARS-CoV-2 Antigen Negative Normal Negative [facility] Comment on above: Result Comment: A negative result does not rule out the possibility of SARS-CoV-2 infection. NAAT-based methods should be considered for symptomatic patients presenting greater than seven days after onset of symptoms. Method: Lateral flow immunoassay. Fact sheets for healthcare providers and patients can be found at the following sites: https://www.Magazino.gov/media/264084/download https://www.Magazino.gov/media/063378/download Performed By: #### C OVAG #### [facility] [address] [place] [address] CBCon 10-28-2021 Hematocrit (Bld) [Volume fraction] 33.4 % Low 40.0 - 52.0 % [facility] Work Phone: Hemoglobin (Bld) [Mass/Vol] 11.0 g/dL Low 13.0 - 18.0 g/dL [facility] Work Phone: 1 Interpretation and review of laboratory results Abnormal [facility] Work Phone: MCH (RBC) [Entitic mass] 27.8 pg 26.0 - 34.0 pg [facility] Work Phone: MCHC (RBC) [Mass/Vol] 32.8 % 32.0 - 36.0 % [facility] Work Phone: MCV (RBC) [Entitic vol] 84.8 fL 80.0 - 98.0 fL [facility] Work Phone: Platelet distribution width (Bld) [Ratio] 17.1 % High 11.5 - 14.5 % [facility] Work Phone: ) Platelet mean volume (Bld) [Entitic vol] 8.3 fL 7.4 - 12.4 fL [employer] Work Phone: [phone] Comment on above: MPV is a calculated measurement using platelet volume ratio. Platelets (Bld) [#/Vol] 344 10*3/uL 140 - 440 10*3/uL [facility] Work Phone: 1 RBC (Bld) [#/Vol] 3.94 10*6/uL Low 4.40 - 5.9 0 10*6/uL [employer] Work Phone: 1) WBC (Bld) [#/Vol] 10.0 10*3/uL 3.6 - 10.7 10*3/uL [employer] Work Phone: [phone] Test Performed by [facility], [address] [place], [place] [address] [facility] Work Phone: [phone] Comp Metabolic Panelon 10-28 ALP [Catalytic activity/Vol] 103 U/L Normal 38-126 [facility] Comment on above: Performed By: #### C A19O, LUPUS #### The performing lab is in the report. #### NSEO #### [facility] #### HEMDF, LDH3, BMP3, MG3, PT, CEA2 #### [facility] [address] [place] [address] #### B2GPM, B2GPA, B2GPG #### [address] [phone] ALT [Catalytic activity/Vol] 26 U/L Normal 0-49 [facility] Comment on above: Result Comment: The ALT test is performed by an updated assay method. Please note that the reference intervals have been changed and are now sex specific. Performed By: #### C A19O, LUPUS #### The performing lab is in the report. #### NSEO #### [facility] #### HEMDF, LDH3, BMP3, MG3, PT, CEA2 #### [facility] [address] [place] [address] #### B2GPM, B2GPA, B2GPG #### [address] AST [Catalytic activity/Vol] 24 U/L Normal 15-46 [facility] Comment on above: Performed By: #### C A19O, LUPUS #### The performing lab is in the report. #### NSEO #### [facility] #### HEMDF, LDH3, BMP3, MG3, PT, CEA2 #### [facility] [address] [place] #### B2GPM, B2GPA, B2GPG #### [address] Calcium [Mass/Vol] 9.1 mg/dL Normal 8.4-10.4 [facility] Comment on above: Performed By: #### C A19O, LUPUS #### The performing lab is in the report. #### NSEO #### [facility] #### HEMDF, LDH3, BMP3, MG3, PT, CEA2 #### [facility] [address] [place] #### B2GPM, B2GPA, B2GPG #### [address] Glucose [Mass/Vol] 117 mg/dL High 70-100 [facility] Comment on above: Performed By: #### C A19O, LUPUS #### The performing lab is in the report. #### NSEO #### [facility] #### HEMDF, LDH3, BMP3, MG3, PT, CEA2 #### [facility] [address] [place] #### B2GPM, B2GPA, B2GPG #### [address] Urea nitrogen [Mass/Vol] 16 mg/dL Normal 7-17 [facility] Comment on above: Performed By: #### C A19O, LUPUS #### The performing lab is in the report. #### NSEO #### [facility] #### HEMDF, LDH3, BMP3, MG3, PT, CEA2 #### [place] [address] [place] [address] #### B2GPM, B2GPA, B2GPG #### [address] Anion gap [Moles/Vol] 5 mmol/L Normal 3-13 [facility] Comment on above: Performed By: #### C A19O, LUPUS #### The performing lab is in the report. #### NSEO #### [facility] #### HEMDF, LDH3, BMP3, MG3, PT, CEA2 #### [address] [place] #### B2GPM, B2GPA, B2GPG #### [address] Bilirubin [Mass/Vol] 0.4 mg/dL Normal 0.2-1.3 [facility] Comment on above: Performed By: #### C A19O, LUPUS #### The performing lab is in the report. #### NSEO #### [facility] #### HEMDF, LDH3, BMP3, MG3, PT, CEA2 #### [address] [place] #### B2GPM, B2GPA, B2GPG #### [address] CO2 [Moles/Vol] 29 mmol/L Normal 22-30 [facility] Comment on above: Performed By: #### C A19O, LUPUS #### The performing lab is in the report. #### NSEO #### [facility] #### HEMDF, LDH3, BMP3, MG3, PT, CEA2 #### [address] [place] #### B2GPM, B2GPA, B2GPG #### [address] [place], [place] Creatinine [Mass/Vol] 0.71 mg/dL Normal 0.52-1.25 [facility] Comment on above: Performed By: #### C A19O, LUPUS #### The performing lab is in the report. #### NSEO #### [facility] #### HEMDF, LDH3, BMP3, MG3, PT, CEA2 #### [facility] [address] [place] [address] #### B2GPM, B2GPA, B2GPG #### [address] eGFR OTHER > 90.0 Normal >60 [facility] Comment on above: Result Comment: KDIG [...] LDH3, BMP3, MG3, PT, CEA2 #### [facility] [address] [place] [address] #### B2GPM, B2GPA, B2GPG #### [address] GFR/1.73 sq M.predicted among blacks MDRD (S/P/Bld) [Vol rate/Area] mL/min/{1.73_m2} Normal >60 [facility] Comment on above: Performed By: #### C A19O, LUPUS #### The performing lab is in the report. #### NSEO #### [facility] #### HEMDF, LDH3, BMP3, MG3, PT, CEA2 #### [place] [address] [place] [address] #### B2GPM, B2GPA, B2GPG #### [address] Protein [Mass/Vol] 7.1 g/dL Normal 6.3-8.2 [facility] Comment on above: Performed By: #### C A19O, LUPUS #### The performing lab is in the report. #### NSEO #### [facility] #### HEMDF, LDH3, BMP3, MG3, PT, CEA2 #### [address] [place] [address] #### B2GPM, B2GPA, B2GPG #### [address] Potassium [Moles/Vol] 3.5 mmol/L Normal 3.5-5.1 [facility] Comment on above: Performed By: #### C A19O, LUPUS #### The performing lab is in the report. #### NSEO #### [facility] #### HEMDF, LDH3, BMP3, MG3, PT, CEA2 #### [address] [place] [address] #### B2GPM, B2GPA, B2GPG #### [address] Sodium [Moles/Vol] 138 mmol/L Normal 135-145 [facility] Comment on above: Performed By: #### C A19O, LUPUS #### The performing lab is in the report. #### NSEO #### [facility] #### HEMDF, LDH3, BMP3, MG3, PT, CEA2 #### [place] [address] [place] [address] #### B2GPM, B2GPA, B2GPG #### [address] Albumin [Mass/Vol] 3.7 g/dL Normal 3.5-5.0 [facility] Comment on above: Performed By: #### C A19O, LUPUS #### The performing lab is in the report. #### NSEO #### [facility] #### HEMDF, LDH3, BMP3, MG3, PT, CEA2 #### [place] [address] [place] [address] #### B2GPM, B2GPA, B2GPG #### [address] Chloride [Moles/Vol] 104 mmol/L Normal 98-107 [facility] Comment on above: Performed By: #### C A19O, LUPUS #### The performing lab is in the report. #### NSEO #### [facility] #### HEMDF, LDH3, BMP3, MG3, PT, CEA2 #### [address] [place] [address] #### B2GPM, B2GPA, B2GPG #### [address] Comprehensive Metabolic Pane kiel 10-28-2021 Albumin [Mass/Vol] 3.7 g/dL 3.5 - 5.0 g/dL [facility] Work Phone: ALP (Bld) [Catalytic activity/Vol] 103 U/L 38 - 126 U/L [facility] Work Phone: ALT [Catalytic activity/Vol] 26 U/L 0 - 49 U/L [facility] Work Phone: Comment on above: The ALT test is perf ormed by an updated assay method. Please note that the reference intervals have been changed and are now sex specific. Anion gap [Moles/Vol] 5 mmol/L 3 - 13 mmol/L [facility] Work Phone: [phone] AST [Catalytic activity/Vol] 24 U/L 15 - 46 U/L [facility] Work Phone: [phone] Bilirubin [Mass/Vol] 0.4 mg/dL 0.2 - 1 .3 mg/dL [facility] Work Phone: ) 222 Calcium [Mass/Vol] 9.1 mg/dL 8.4 - 10. 4 mg/dL [facility] Work Phone: ) 222 Chloride [Moles/Vol] 104 mmol/L 98 - 10 7 mmol/L [facility] Work Phone: () 222 CO2 [Moles/Vol] 29 mmol/L 22 - 30 mmol/L [facility] Work Phone: Creatinine [Mass/Vol] 0.71 mg/dL 0.52 - 1.25 mg/dL [facility] Work Phone: [phone] EGFR IF NonAfrican Northern Irish >90.0 >60 mL/min [facility] Work Phone: Comment on above: [...] fraction] 7.1 g/dL 6.3 - 8.2 g/dL [facility] Work Phone: [phone] GFR/1.73 sq M.predicted among blacks MDRD (S/P/Bld) [Vol rate/Area] mL/min/{1.73_m2} >60 mL/min [facility] Work Phone: Glucose [Mass/Vol] 117 mg/dL High 70 - 100 mg/dL [facility] Work Phone: [phone] Interpretation and review of laboratory results Abnormal [facility] Work Phone: [phone] Potassium [Moles/Vol] 3.5 mmol/L 3.5 - 5.1 mmol/L [facility] Work Phone: [phone] Sodium [Moles/Vol] 138 mmol/L 135 - 145 mmol/L [facility] Work Phone: [phone] Urea nitrogen (BldV) [Mass/Vol] 16 mg/dL 7 - 17 mg/dL [facility] Work Phone: [phone] Test Performed by [facility], [address] [place], [place] [address] [place] [address] LAB [facility] Work Phone: [phone] Hemogramon 10-28-2021 Erythrocyte distribution width (RBC) [Ratio] 17.1 % High 11.5-14.5 [facility] Comment on above: Performed By: #### C A19O, LUPUS #### The performing lab is in the report. #### NSEO #### [facility] #### HEMDF, LDH3, BMP3, MG3, PT, CEA2 #### [address] [address] #### B2GPM, B2GPA, B2GPG #### [address] Hematocrit (Bld) [Volume fraction] 33.4 % Low 40.0-52.0 [facility] Comment on above: Performed By: #### C A19O, LUPUS #### The performing lab is in the report. #### NSEO #### [facility] #### HEMDF, LDH3, BMP3, MG3, PT, CEA2 #### [address] [address] #### B2GPM, B2GPA, B2GPG #### [address] Hemoglobin (Bld) [Mass/Vol] 11.0 g/dL Low 13.0-18.0 [facility] Comment on above: Performed By: #### C A19O, LUPUS #### The performing lab is in the report. #### NSEO #### [facility] #### HEMDF, LDH3, BMP3, MG3, PT, CEA2 #### [facility] [address] [place] [address] #### B2GPM, B2GPA, B2GPG #### [address] MCH (RBC) [Entitic mass] 27.8 pg Normal 26.0-34.0 [facility] Comment on above: Performed By: #### C A19O, LUPUS #### The performing lab is in the report. #### NSEO #### [facility] #### HEMDF, LDH3, BMP3, MG3, PT, CEA2 #### [address] [place] [address] #### B2GPM, B2GPA, B2GPG #### [address] MCHC 32.8 % Normal 32.0-36.0 [facility] Comment on above: Performed By: #### C A19O, LUPUS #### The performing lab is in the report. #### NSEO #### [facility] #### HEMDF, LDH3, BMP3, MG3, PT, CEA2 #### [address] [place] [address] #### B2GPM, B2GPA, B2GPG #### [address] MCV (RBC) [Entitic vol] 84.8 fL Normal 80.0-98.0 [facility] Comment on above: Performed By: #### C A19O, LUPUS #### The performing lab is in the report. #### NSEO #### [facility] #### HEMDF, LDH3, BMP3, MG3, PT, CEA2 #### [facility] [address] [place] [address] #### B2GPM, B2GPA, B2GPG #### [address] Platelet mean volume (Bld) [Entitic vol] 8.3 fL Normal 7.4-12.4 [facility] Comment on above: Result Comment: MPV is a calculated measurement using platelet volume ratio. Performed By: #### C A19O, LUPUS #### The performing lab is in the report. #### NSEO #### [facility] #### HEMDF, LDH3, BMP3, MG3, PT, CEA2 #### [place] [address] [place] #### B2GPM, B2GPA, B2GPG #### [address] Platelets (Bld) [#/Vol] 344 10*3/uL Normal 140-440 [facility] Comment on above: Performed By: #### C A19O, LUPUS #### The performing lab is in the report. #### NSEO #### [facility] #### HEMDF, LDH3, BMP3, MG3, PT, CEA2 #### [address] [place] #### B2GPM, B2GPA, B2GPG #### [address] RBC (Bld) [#/Vol] 3.94 10*6/uL Low 4.40-5.90 [facility] Comment on above: Performed By: #### C A19O, LUPUS #### The performing lab is in the report. #### NSEO #### [facility] #### HEMDF, LDH3, BMP3, MG3, PT, CEA2 #### [place] [address] [place] #### B2GPM, B2GPA, B2GPG #### [place] [address] [place] [address] WBC (Bld) [#/Vol] 10.0 10*3/uL Normal 3.6-10.7 [facility] Comment on above: Performed By: #### C A19O, LUPUS #### The performing lab is in the report. #### NSEO #### [facility] #### HEMDF, LDH3, BMP3, MG3, PT, CEA2 #### [facility] [address] [place] [address] #### B2GPM, B2GPA, B2GPG #### [facility] [address] [place] [address] Neuron Specific Enolaseon Neuron Specific Enolase 20.8 Normal [facility] Comment on above: Result Comment: Neur on Specific Enolase, Serum 20.8 ng/mL H (Ref Interval: <=12.7) NSE and Hgb are elevated in the specimen. The elevated NSE may be a result of hemolysis as NSE is expressed in red blood cells. Interpret results with caution. INTERPRETIVE INFORMATION: Neuron Specific Enolase in Serum This assay is performed using the [employer] NSE Kryptor Immunoassay. Results obtained with different assay methods or kits cannot be used interchangeably. Results cannot be interpreted as absolute evidence of the presence or absence of malignant disease. This test was developed and its performance characteristics determined by [employer]. It has not been cleared or approved by the [place] Food and Drug Administration. This test was performed in a CLIA certified laboratory and is intended for clinical purposes. Performed By: #### C OVAG #### [facility] [address] [place] [address] Neuron specific enolase (NSE )on 10-28-2021 Neuron Specific Enolase 20.8 [facility] Work Phone: Comment on above: Neuron Specific Enol ase, Serum 20.8 ng/mL H (Ref Interval: <=12.7) NSE and Hgb are elevated in the specimen. The elevated NSE may be a result of hemolysis as NSE is expressed in red blood cells. Interpret results with caution. INTERPRETIVE INFORMATION: Neuron Specific Enolase in Serum This assay is performed using the [employer] NSE Kryptor Immunoassay. Results obtained with different assay methods or kits cannot be used interchangeably. Results cannot be interpreted as absolute evidence of the presence or absence of malignant disease. This test was developed and its performance characteristics determined by [employer]. It has not been cleared or approved by the [place] Food and Drug Administration. This test was performed in a CLIA certified laboratory and is intended for clinical purposes. 1 [facility] Work Phone: Prothrombin Timeon 2 INR 3.1 High 0.9-1.1 [facility] Comment on above: Result Comment: Harry [...] LDH3, BMP3, MG3, PT, CEA2 #### [facility] [address] [place] [address] #### B2GPM, B2GPA, B2GPG #### [place] [address] [place], [place] PT Coag (PPP) [Time] 30.8 s High 9.0-12.0 [facility] Comment on above: Result Comment: . Performed By: #### C A19O, LUPUS #### The performing lab is in the report. #### NSEO #### [facility] #### HEMDF, LDH3, BMP3, MG3, PT, CEA2 #### [facility] [address] [place] [address] #### B2GPM, B2GPA, B2GPG #### [address] [phone] Protime-INRon 10-28-2021 INR Coag (Bld) [Relative time] 3.1 {INR} High [facility] Work Phone: Comment on above: [...] Interpretation and review of laboratory results Abnormal [facility] Work Phone: PT Coag (PPP) [Time] 30.8 s High 9.0 - 12.0 s [facility] Work Phone: Comment on above: . Test Performed by [facility], [address] LAB [facility] Work Phone: MRI BRAIN WO CONTRASTon 10-06 Patient Name: ANDREW SIFUENTES Magnetic Resonance Imaging ACCESSION EXAM DATE/TIME PROCEDURE ORDERING PROVIDER [id number] 10/27/2021 13:14 EDT MRI Brain w/o Contrast UNASSIGNED, UNASSIGNED CPT code 87313 Reason For Exam (MRI Brain w/o Contrast) stroke Patient has SHOE RECONDITIONER shunt in place, please follow Radiology protocol [...] [facility]AMA Transcribed Date and Time: 10/27/2021 2:39 [facility] Venus Loyd MD - 10/27/2021 [id number] Resonance Imaging ACCESSION EXAM DATE/TIME PROCEDURE ORDERING PROVIDER [id number] 10/27/2021 13:14 EDT MRI Brain w/o Contrast UNASSIGNED, UNASSIGNED CPT code 70336 Reason For Exam (MRI Brain w/o Contrast) stroke Patient has SHOE RECONDITIONER shunt in place, please follow Radiology protocol [...] Brain w/o Contrast Patient [facility]: [id number] Magnetic Resonance Imaging ACCESSION EXAM DATE/TIME PROCEDURE ORDERING PROVIDER [id number] 10/27/2021 13:14 EDT MRI Brain w/o Contrast UNASSIGNED, UNASSIGNED CPT code 50945 Reason For Exam (MRI Brain w/o Contrast) stroke Patient has SHOE RECONDITIONER shunt in place, please follow Radiology protocol [...] Date and Time: 10/27/2021 2:39 Normal [facility] Prothrombin Timeon 2 INR 2.1 High 0.9-1.1 [facility] Comment on above: Result Comment: Harry [...] Performed By: #### P T #### [facility] [address] [place] [address] PT Coag (PPP) [Time] 21.9 s High 9.0-12.0 [facility] Work Phone: Comment on above: . Result Comment: . Performed By: #### P T #### [facility] [address] [place] [address] Protime-INRon 10-27-2021 INR Coag (Bld) [Relative time] 2.1 {INR} High [facility] Work Phone: Comment on above: [...] Interpretation and review of laboratory results Abnormal [facility] Work Phone: Test Performed by [facility], [address], [place], [place] [address] [facility] Work Phone: CT HEAD WO CONTRASTon 2021 Patient Name: ANDREW SIFUENTES Computed Tomography ACCESSION EXAM DATE/TIME PROCEDURE ORDERING PROVIDER [id number] 10/26/2021 11:[address] Head or Brain w/o JUNIE PINEDA ALLISON Contrast CPT code 41539 Reason For Exam (CT Head or Brain w/o Contrast) hydrocephalus. thank you Report CLINICAL INFORMATION: Hydrocephalus. Shunt. 3 mm axial cuts through the head are obtained without IV contrast. The examination is compared to a previous study dated 06/29/2014. FINDINGS: Old SHOE RECONDITIONER shunt tubing is noted bilaterally. The new [...] are clear. IMPRESSION: 1. Old and new SHOE RECONDITIONER shunt tubing. 2. No hydrocephalus. 3. Atrophy [...] Tomography ACCESSION EXAM DATE/TIME PROCEDURE ORDERING PROVIDER [id number] 10/26/2021 11:[address] Head or Brain w/o JUNIE PINEDA, SARINA Contrast CPT code 51889 Reason For Exam (CT Head or Brain w/o Contrast) hydrocephalus. thank you Report CLINICAL INFORMATION: Hydrocephalus. Shunt. 3 mm axial cuts through the head are obtained without IV contrast. The examination is compared to a previous study dated 06/29/2014. FINDINGS: Old SHOE RECONDITIONER shunt tubing is noted bilaterally. The new [...] are clear. IMPRESSION: 1. Old and new SHOE RECONDITIONER shunt tubing. 2. No hydrocephalus. 3. Atrophy [...] Tomography ACCESSION EXAM DATE/TIME PROCEDURE ORDERING PROVIDER [id number] 10/26/2021 11:[address] Head or Brain w/o JUNIE PINEDA, SARINA Contrast CPT code 66609 Reason For Exam (CT Head or Brain w/o Contrast) hydrocephalus. thank you Report CLINICAL INFORMATION: Hydrocephalus. Shunt. 3 mm axial cuts through the head are obtained without IV contrast. The examination is compared to a previous study dated 06/29/2014. FINDINGS: Old SHOE RECONDITIONER shunt tubing is noted bilaterally. The new [...] are clear. IMPRESSION: 1. Old and new SHOE RECONDITIONER shunt tubing. 2. No hydrocephalus. 3. Atrophy and evidence of small-vessel ischemic disease. 4. No CT evidence of an acute intracranial process. 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 Barreto REASON FOR EXAM: seizures HISTORY: Andrew Sifuentes is a 71 y.o. male with history of obstructive hydrocephalus s/p SHOE RECONDITIONER shunt in 1987, needing multiple revisions and [...] normal limits and both old and new SHOE RECONDITIONER shunt tubing noted. At present patient is awake, follows commands, was able to tell his name, and that he was in hospital but not oriented to time. Per documentation patient had NCSE in May 2021, was on Vimpat, but it was discontinued as there was no evidence of recurrent seizures in July 2021 by Neurology at [facility], per daughter patient was on Dilantin [...] study with video was carried out at [facility]. Scalp electrodes were positioned in person by an radiation therapy technologist, following patient education, according to the 10-20 International system of electrode placement and maintained for integrity and quality of the recording. EEG data with video was recorded continuously and digitally stored. The radiation therapy technologist reviewed all automated detections and manual [...] No normal vari (more content not included)... [employer] Work Phone: [employer] Work Phone: No Panel Informationon 10-26 Radiology Study observation (narrative) [employer] Phone: Prothrombin Timeon 2 INR 1.9 High 0.9-1.1 [facility] Comment on above: Result Comment: Harry mmended [...] Infarction Performed By: #### C OVAG #### [facility] [address] [place] [address] PT Coag (PPP) [Time] 19.7 s High 9.0-12.0 [facility] Comment on above: Result Comment: . Performed By: #### C OVAG #### [facility] [address] [place] [address] Protime-INRon 10-26-2021 INR Coag (Bld) [Relative time] 1.9 {INR} High [facility] Work Phone: Comment on above: Recommended Anticoag [...] Interpretation and review of laboratory results Abnormal [facility] Work Phone: PT Coag (PPP) [Time] 19.7 s High 9.0 - 12.0 s [facility] Work Phone: Comment on above: . Test Performed by [facility], [address] [place], [place] [address] [facility] Work Phone: CA 19-9on 10-25-2021 CA 19-9 17 U/mL Normal <=35 [facility] Work Phone: Comment on above: [...] or absence of malignant disease. Performed By: [place] [address] Fashion Journalist: Quiana Castro MD Result Comment: INTE RPRETIVE [...] or absence of malignant disease. Performed By: [place] [address] Fashion Journalist: Quiana Castro MD Performed By: #### C OVAG #### [facility] [address] [place] [address] Cancer Antigen 19-9on 2021 [facility] Work Phone: Prothrombin Timeon 2 INR 1.5 High 0.9-1.1 [facility] Comment on above: Result Comment: Harry [...] Performed By: #### P T #### [facility] [address] [facility] [place] [address] PT Coag (PPP) [Time] 15.6 s High 9.0-12.0 [facility] Comment on above: Result Comment: . Performed By: #### P T #### [facility] [address] [place] [address] Protime-INRon 10-25-2021 INR Coag (Bld) [Relative time] 1.5 {INR} High [facility] Work Phone: Comment on above: [...] Interpretation and review of laboratory results Abnormal [facility] Work Phone: PT Coag (PPP) [Time] 15.6 s High 9.0 - 12.0 s [facility] Work Phone: Comment on above: . Test Performed by [facility], [address] [place], [place] [address] [facility] Work Phone: B-2 Glycoprotein [...] Anion gap [Moles/Vol] 8 mmol/L Normal 3-13 [facility] Comment on above: Performed By: #### C A19O, LUPUS #### The performing lab is in the report. #### NSEO #### [facility] #### HEMDF, LDH3, BMP3, MG3, PT, CEA2 #### [facility] [address] [place] [address] #### B2GPM, B2GPA, B2GPG #### [facility] [address] [place] [address] Calcium [Mass/Vol] 8.8 mg/dL Normal 8.4-10.4 [facility] Comment on above: Performed By: #### C A19O, LUPUS #### The performing lab is in the report. #### NSEO #### [facility] #### HEMDF, LDH3, BMP3, MG3, PT, CEA2 #### [facility] [address] [place] [address] #### B2GPM, B2GPA, B2GPG #### [address] CO2 [Moles/Vol] 25 mmol/L Normal 22-30 [facility] Comment on above: Performed By: #### C A19O, LUPUS #### The performing lab is in the report. #### NSEO #### [facility] #### HEMDF, LDH3, BMP3, MG3, PT, CEA2 #### [facility] [address] [place] [address] #### B2GPM, B2GPA, B2GPG #### [address] Creatinine [Mass/Vol] 0.74 mg/dL Normal 0.52-1.25 [facility] Comment on above: Performed By: #### C A19O, LUPUS #### The performing lab is in the report. #### NSEO #### [facility] #### HEMDF, LDH3, BMP3, MG3, PT, CEA2 #### [facility] [address] [place] [address] #### B2GPM, B2GPA, B2GPG #### [address] eGFR OTHER > 90.0 Normal >60 [facility] Comment on above: Result Comment: KDIG [...] LDH3, BMP3, MG3, PT, CEA2 #### [facility] [address] [place] [address] #### B2GPM, B2GPA, B2GPG #### [address] GFR/1.73 sq M.predicted among blacks MDRD (S/P/Bld) [Vol rate/Area] mL/min/{1.73_m2} Normal >60 [facility] Comment on above: Performed By: #### C A19O, LUPUS #### The performing lab is in the report. #### NSEO #### [facility] #### HEMDF, LDH3, BMP3, MG3, PT, CEA2 #### [address] [place] [address] #### B2GPM, B2GPA, B2GPG #### [address] Glucose [Mass/Vol] 116 mg/dL High 70-100 [facility] Comment on above: Performed By: #### C A19O, LUPUS #### The performing lab is in the report. #### NSEO #### [facility] #### HEMDF, LDH3, BMP3, MG3, PT, CEA2 #### [address] [place] [address] #### B2GPM, B2GPA, B2GPG #### [address] Urea nitrogen [Mass/Vol] 19 mg/dL High 7-17 [facility] Comment on above: Performed By: #### C A19O, LUPUS #### The performing lab is in the report. #### NSEO #### [facility] #### HEMDF, LDH3, BMP3, MG3, PT, CEA2 #### [facility] [address] [place] [address] #### B2GPM, B2GPA, B2GPG #### [address] Chloride [Moles/Vol] 107 mmol/L Normal 98-107 [facility] Comment on above: Performed By: #### C A19O, LUPUS #### The performing lab is in the report. #### NSEO #### [facility] #### HEMDF, LDH3, BMP3, MG3, PT, CEA2 #### [place] [address] [place] [address] #### B2GPM, B2GPA, B2GPG #### [address] Potassium [Moles/Vol] 3.9 mmol/L Normal 3.5-5.1 [facility] Comment on above: Performed By: #### C A19O, LUPUS #### The performing lab is in the report. #### NSEO #### [facility] #### HEMDF, LDH3, BMP3, MG3, PT, CEA2 #### [place] [address] [place] [address] #### B2GPM, B2GPA, B2GPG #### [address] Sodium [Moles/Vol] 140 mmol/L Normal 135-145 [facility] Comment on above: Performed By: #### C A19O, LUPUS #### The performing lab is in the report. #### NSEO #### [facility] #### HEMDF, LDH3, BMP3, MG3, PT, CEA2 #### [place] [address] [place] [address] #### B2GPM, B2GPA, B2GPG #### [address] Anion gap [Moles/Vol] 8 mmol/L 3 - 13 mmol/L [facility] Calcium [Mass/Vol] 8.8 mg/dL 8.4 - 10. 4 mg/dL [facility] Chloride [Moles/Vol] 107 mmol/L 98 - 10 7 mmol/L [facility] CO2 [Moles/Vol] 25 mmol/L 22 - 30 mmol/L [facility] Creatinine [Mass/Vol] 0.74 mg/dL 0.52 - 1.25 mg/dL [facility] EGFR IF NonAfrican Northern Irish >90.0 >60 mL/min [facility] Comment on above: KDIGO guidelines [...] 116 mg/dL High 70 - 100 mg/dL [facility] Interpretation and review of laboratory results Abnormal [facility] Potassium [Moles/Vol] 3.9 mmol/L 3.5 - 5.1 mmol/L [facility] Sodium [Moles/Vol] 140 mmol/L 135 - 145 mmol/L [facility] Urea nitrogen (BldV) [Mass/Vol] 19 mg/dL High 7 - 17 mg/dL [facility] Test Performed by [facility], [address] [place], [place] [address] [facility] Beta-2 Glycoprotein I IgAon 10-24-2021 Beta-2 Glycoprotein I IgA < 2.0 Normal [facility] Comment on above: Result Comment: Inte rpretive Information: Results equal to or greater than 20 U/mL = POSITIVE Results less than 20 U/mL = NEGATIVE Performed By: #### C OVAG #### [facility] [address] [place] [address] Beta-2 Glycoprotein I IgGon 10-24-2021 Beta-2 Glycoprotein I IgG < 1.4 Normal [facility] Comment on above: Result Comment: Inte rpretive Information: Results equal to or greater than 20 U/mL = POSITIVE Results less than 20 U/mL = NEGATIVE Performed By: #### C OVAG #### [facility] [address] [place] [address] Beta-2 Glycoprotein I IgMon 10-24-2021 Beta-2 Glycoprotein I IgM < 1.5 Normal [facility] Comment on above: Result Comment: Inte rpretive Information: Results equal to or greater than 20 U/mL = POSITIVE Results less than 20 U/mL = NEGATIVE Performed By: #### C OVAG #### [facility] [address] [place] [address] No Panel Informationon 10-24 [facility] Test Performed by [facility], [address] [place] [address] [facility] Work Phone: PROTEIN C FUNCTIONALon 10-24 Interpretation and review of laboratory results Abnormal [facility] Protein C-Functional 185 % High [...] reference intervals for this test in the [facility] ([employer]). Performed by [facility] [employer], [address] [place] [address] [email or web address], Quiana Castro MD - Lab. Director Protein C, Functionalon 10-06 Protein C, Functional 185 % High 83-168 [facility] Comment on above: Result Comment: INTE [...] reference intervals for this test in the [facility] ([employer]). Performed by [facility], [address] [facility] [place] [address] [email or web address], Quiana Castro MD - Lab. Director Performed By: #### P T #### [employer] [facility] [address] [place] [address] Protein S, Functionalon 10-06 Protein S, Functional [...] reference intervals for this test in the [facility] ([employer]). Performed by [facility], [address] [facility] [place] [address] [email or web address], Quiana Castro MD - Lab. Director Result [...] reference intervals for this test in the [facility] ([employer]). Performed by [facility], [address] [facility] [place] [address] [email or web address], Quiana Castro MD - Lab. Director Performed By: #### P T #### [employer] [facility] [address] [place] [address] Prothrombin Timeon INR 1.2 High 0.9-1.1 [facility] Comment on above: Result Comment: Harry [...] LDH3, BMP3, MG3, PT, CEA2 #### [facility] [address] [place] [address] #### B2GPM, B2GPA, B2GPG #### [address] [phone] PT Coag (PPP) [Time] 12.6 s High 9.0-12.0 [facility] Comment on above: Result Comment: . Performed By: #### C A19O, LUPUS #### The performing lab is in the report. #### NSEO #### [facility] #### HEMDF, LDH3, BMP3, MG3, PT, CEA2 #### [facility] [address] [place] [address] #### B2GPM, B2GPA, B2GPG #### [address] [address] Protime-INRon 10-24-2021 INR Coag (Bld) [Relative time] 1.2 {INR} High [facility] Comment on above: Recommended Anticoag [...] Interpretation and review of laboratory results Abnormal [facility] PT Coag (PPP) [Time] 12.6 s High 9.0 - 12.0 s [facility] Comment on above: . Test Performed by [facility], [address] [place] [address] [facility] Basic Metabolic Panelon - Anion gap [Moles/Vol] 10 mmol/L Normal 3-13 [facility] Comment on above: Performed By: #### C A19O, LUPUS #### The performing lab is in the report. #### NSEO #### [facility] #### HEMDF, LDH3, BMP3, MG3, PT, CEA2 #### [facility] [address] [place] [address] #### B2GPM, B2GPA, B2GPG #### [address] [address] Calcium [Mass/Vol] 9.6 mg/dL Normal 8.4-10.4 [facility] Comment on above: Performed By: #### C A19O, LUPUS #### The performing lab is in the report. #### NSEO #### [facility] #### HEMDF, LDH3, BMP3, MG3, PT, CEA2 #### [facility] [address] [place] [address] #### B2GPM, B2GPA, B2GPG #### [address] [phone] CO2 [Moles/Vol] 27 mmol/L Normal 22-30 [facility] Comment on above: Performed By: #### C A19O, LUPUS #### The performing lab is in the report. #### NSEO #### [facility] #### HEMDF, LDH3, BMP3, MG3, PT, CEA2 #### [facility] [address] [place] [address] #### B2GPM, B2GPA, B2GPG #### [address] Glucose [Mass/Vol] 109 mg/dL High 70-100 [facility] Comment on above: Performed By: #### C A19O, LUPUS #### The performing lab is in the report. #### NSEO #### [facility] #### HEMDF, LDH3, BMP3, MG3, PT, CEA2 #### [address] [place] [address] #### B2GPM, B2GPA, B2GPG #### [address] Urea nitrogen [Mass/Vol] 18 mg/dL High 7-17 [facility] Comment on above: Performed By: #### C A19O, LUPUS #### The performing lab is in the report. #### NSEO #### [facility] #### HEMDF, LDH3, BMP3, MG3, PT, CEA2 #### [address] [place] #### B2GPM, B2GPA, B2GPG #### [address] Creatinine [Mass/Vol] 0.82 mg/dL Normal 0.52-1.25 [facility] Comment on above: Performed By: #### C A19O, LUPUS #### The performing lab is in the report. #### NSEO #### [facility] #### HEMDF, LDH3, BMP3, MG3, PT, CEA2 #### [address] [place], [place] #### B2GPM, B2GPA, B2GPG #### [address] GFR/1.73 sq M.predicted among blacks MDRD (S/P/Bld) [Vol rate/Area] mL/min/{1.73_m2} Normal >60 [facility] Comment on above: Performed By: #### C A19O, LUPUS #### The performing lab is in the report. #### NSEO #### [facility] #### HEMDF, LDH3, BMP3, MG3, PT, CEA2 #### [facility] [address] [place] [address] #### B2GPM, B2GPA, B2GPG #### [facility] [address] [place] [address] GFR/1.73 sq M.predicted among non-blacks MDRD (S/P/Bld) [Vol rate/Area] 89.9 mL/min/{1.73_m2} Normal >60 [facility] Comment on above: Result Comment: KDIG [...] LDH3, BMP3, MG3, PT, CEA2 #### [facility] [address] [place] [address] #### B2GPM, B2GPA, B2GPG #### [facility] [address] [place], [place] Chloride [Moles/Vol] 104 mmol/L Normal 98-107 [facility] Comment on above: Performed By: #### C A19O, LUPUS #### The performing lab is in the report. #### NSEO #### [facility] #### HEMDF, LDH3, BMP3, MG3, PT, CEA2 #### [place] [address] [place] [address] #### B2GPM, B2GPA, B2GPG #### [address] Potassium [Moles/Vol] 3.9 mmol/L Normal 3.5-5.1 [facility] Comment on above: Performed By: #### C A19O, LUPUS #### The performing lab is in the report. #### NSEO #### [facility] #### HEMDF, LDH3, BMP3, MG3, PT, CEA2 #### [place] [address] [place] [address] #### B2GPM, B2GPA, B2GPG #### [address] Sodium [Moles/Vol] 142 mmol/L Normal 135-145 [facility] Comment on above: Performed By: #### C A19O, LUPUS #### The performing lab is in the report. #### NSEO #### [facility] #### HEMDF, LDH3, BMP3, MG3, PT, CEA2 #### [address] [place] [address] #### B2GPM, B2GPA, B2GPG #### [address] Anion gap [Moles/Vol] 10 mmol/L 3 - 13 mmol/L [facility] Work Phone: [phone] Calcium [Mass/Vol] 9.6 mg/dL 8.4 - 10. 4 mg/dL [facility] Work Phone: [phone] Chloride [Moles/Vol] 104 mmol/L 98 - 10 7 mmol/L [facility] Work Phone: [phone] CO2 [Moles/Vol] 27 mmol/L 22 - 30 mmol/L [facility] Work Phone: [phone] Creatinine [Mass/Vol] 0.82 mg/dL 0.52 - 1.25 mg/dL [employer] Work Phone: [phone] EGFR IF NonAfrican Northern Irish 89.9 mL/min >60 [facility] Work Phone: [phone] Comment on above: KDIGO guidelines pro [...] MDRD (S/P/Bld) [Vol rate/Area] mL/min/{1.73_m2} >60 mL/min [facility] Work Phone: [phone] Glucose [Mass/Vol] 109 mg/dL High 70 - 100 mg/dL [facility] Work Phone: [phone] Interpretation and review of laboratory results Abnormal [facility] Work Phone: [phone] Potassium [Moles/Vol] 3.9 mmol/L 3.5 - 5.1 mmol/L [facility] Work Phone: [phone] Sodium [Moles/Vol] 142 mmol/L 135 - 145 mmol/L [employer] Work Phone: [phone] Urea nitrogen (BldV) [Mass/Vol] 18 mg/dL High 7 - 17 mg/dL [facility] Work Phone: [phone] CBC with Auto Differentialon 10-23-2021 Absolute Baso # 0.1 10*3/uL 0.0 - 0.2 10*3/uL [facility] Work Phone: Absolute Neut # 6.6 10*3/uL 1.8 - 7.0 10*3/uL [facility] Work Phone: [phone] Basophils/100 WBC (Bld) 1.1 % 0.0 - 2.0 % [employer] Work Phone: [phone]() 222 Eosinophils (Bld) [#/Vol] 0.4 10*3/uL 0.0 - 0.5 10*3/uL [facility] Work Phone: [phone] 222 Eosinophils/100 WBC (Bld) 3.9 % 1.0 - 6.0 % [employer] Work Phone: 1() 222 Granulocytes/100 WBC (Bld) 64.0 % 40.0 - 80.0 % [employer] Work Phone: ) 222 Hematocrit (Bld) [Volume fraction] 35.1 % Low 40.0 - 52.0 % [employer] Work Phone: [phone] 222 Hemoglobin (Bld) [Mass/Vol] 11.6 g/dL Low 13.0 - 18.0 g/dL [employer] Work Phone: [phone] Interpretation and review of laboratory results Abnormal [employer] Work Phone: 1() 222 Lymphocytes (Bld) [#/Vol] 2.6 10*3/uL 1.0 - 4.3 10*3/uL [employer] Work Phone: 1() 222 Lymphocytes/100 WBC (Bld) 25.0 % 20.0 - 40.0 % [employer] Work Phone: [phone] 222 MCH (RBC) [Entitic mass] 28.4 pg 26.0 - 34.0 pg [facility] Work Phone: 1() 222 MCHC (RBC) [Mass/Vol] 33.1 % 32.0 - 36.0 % [facility] Work Phone: [phone] 222 MCV (RBC) [Entitic vol] 85.9 fL 80.0 - 98.0 fL [employer] Work Phone: [phone]) 222 Monocytes (Bld) [#/Vol] 0.6 10*3/uL 0.0 - 0.8 10*3/uL [facility] Work Phone: [phone] 222 Monocytes/100 WBC (Bld) 6.0 % 2.0 - 10.0 % [facility] Work Phone: [phone] Platelet distribution width (Bld) [Ratio] 17.4 % High 11.5 - 14.5 % [facility] Work Phone: [phone] Platelet mean volume (Bld) [Entitic vol] 8.1 fL 7.4 - 12.4 fL [facility] Work Phone: [phone] Comment on above: MPV is a calculated measurement using platelet volume ratio. Platelets (Bld) [#/Vol] 450 10*3/uL High 140 - 440 10*3/uL [facility] Work Phone: [phone] RBC (Bld) [#/Vol] 4.08 10*6/uL Low 4.40 - 5.9 0 10*6/uL [facility] Work Phone: [phone] WBC (Bld) [#/Vol] 10.3 10*3/uL 3.6 - 10.7 10*3/uL [facility] Work Phone: [phone] Test Performed by [facility], [address], [place] [id number] [place] [address] LAB [facility] Work Phone: [phone] CEAon 10-23-2021 CEA 0.8 ng/mL 0.0 - 3.0 ng/mL [facility] Work Phone: [phone] Test Performed by [facility], [address], [place] [id number] [place] [address] LAB [facility] Work Phone: [phone] Carcinoembryonic Agon 2021 Carcinoembryonic Ag. 0.8 ng/mL Normal 0.0-3.0 [facility] Comment on above: Performed By: #### C A19O, LUPUS #### The performing lab is in the report. #### NSEO #### [facility] #### HEMDF, LDH3, BMP3, MG3, PT, CEA2 #### [facility] [address] [place] [address] #### B2GPM, B2GPA, B2GPG #### [address] Hemogram w/ Autodiffon 10-23 Abs Baso Cnt 0.1 10*3/uL Normal 0.0-0.2 [facility] Comment on above: Performed By: #### C A19O, LUPUS #### The performing lab is in the report. #### NSEO #### [facility] #### HEMDF, LDH3, BMP3, MG3, PT, CEA2 #### [facility] [address] [place] #### B2GPM, B2GPA, B2GPG #### [address] Abs Neutrophile Cnt 6.6 10*3/uL Normal 1.8-7.0 [facility] Comment on above: Performed By: #### C A19O, LUPUS #### The performing lab is in the report. #### NSEO #### [facility] #### HEMDF, LDH3, BMP3, MG3, PT, CEA2 #### [facility] [address] [place], [place] #### B2GPM, B2GPA, B2GPG #### [address] Basophils/100 WBC (Bld) 1.1 % Normal 0.0-2.0 [facility] Comment on above: Performed By: #### C A19O, LUPUS #### The performing lab is in the report. #### NSEO #### [facility] #### HEMDF, LDH3, BMP3, MG3, PT, CEA2 #### [facility] [address] [place] #### B2GPM, B2GPA, B2GPG #### [address] Eosinophils (Bld) [#/Vol] 0.4 10*3/uL Normal 0.0-0.5 [facility] Comment on above: Performed By: #### C A19O, LUPUS #### The performing lab is in the report. #### NSEO #### [facility] #### HEMDF, LDH3, BMP3, MG3, PT, CEA2 #### [facility] [address] [place] [address] #### B2GPM, B2GPA, B2GPG #### [address] [phone] Eosinophils/100 WBC (Bld) 3.9 % Normal 1.0-6.0 [facility] Comment on above: Performed By: #### C A19O, LUPUS #### The performing lab is in the report. #### NSEO #### [facility] #### HEMDF, LDH3, BMP3, MG3, PT, CEA2 #### [address] [place], [place] #### B2GPM, B2GPA, B2GPG #### [address] [phone] Erythrocyte distribution width (RBC) [Ratio] 17.4 % High 11.5-14.5 [facility] Comment on above: Performed By: #### C A19O, LUPUS #### The performing lab is in the report. #### NSEO #### [facility] #### HEMDF, LDH3, BMP3, MG3, PT, CEA2 #### [address] [place] [address] #### B2GPM, B2GPA, B2GPG #### [address] [phone] Granulocytes/100 WBC (Bld) 64.0 % Normal 40.0-80.0 [facility] Comment on above: Performed By: #### C A19O, LUPUS #### The performing lab is in the report. #### NSEO #### [facility] #### HEMDF, LDH3, BMP3, MG3, PT, CEA2 #### [place] [address] [place], [place] #### B2GPM, B2GPA, B2GPG #### [address] Hematocrit (Bld) [Volume fraction] 35.1 % Low 40.0-52.0 [facility] Comment on above: Performed By: #### C A19O, LUPUS #### The performing lab is in the report. #### NSEO #### [facility] #### HEMDF, LDH3, BMP3, MG3, PT, CEA2 #### [facility] [address] [place], [place] #### B2GPM, B2GPA, B2GPG #### [address] Hemoglobin (Bld) [Mass/Vol] 11.6 g/dL Low 13.0-18.0 [facility] Comment on above: Performed By: #### C A19O, LUPUS #### The performing lab is in the report. #### NSEO #### [facility] #### HEMDF, LDH3, BMP3, MG3, PT, CEA2 #### [facility] [address] [place] #### B2GPM, B2GPA, B2GPG #### [address] Lymphocytes (Bld) [#/Vol] 2.6 10*3/uL Normal 1.0-4.3 [facility] Comment on above: Performed By: #### C A19O, LUPUS #### The performing lab is in the report. #### NSEO #### [facility] #### HEMDF, LDH3, BMP3, MG3, PT, CEA2 #### [facility] [address] [place] #### B2GPM, B2GPA, B2GPG #### [address] Lymphocytes/100 WBC (Bld) 25.0 % Normal 20.0-40.0 [facility] Comment on above: Performed By: #### C A19O, LUPUS #### The performing lab is in the report. #### NSEO #### [facility] #### HEMDF, LDH3, BMP3, MG3, PT, CEA2 #### [facility] [address] [facility] [place] [address] #### B2GPM, B2GPA, B2GPG #### [address] MCH (RBC) [Entitic mass] 28.4 pg Normal 26.0-34.0 [facility] Comment on above: Performed By: #### C A19O, LUPUS #### The performing lab is in the report. #### NSEO #### [facility] #### HEMDF, LDH3, BMP3, MG3, PT, CEA2 #### [address] [place], [place] #### B2GPM, B2GPA, B2GPG #### [address] MCHC 33.1 % Normal 32.0-36.0 [facility] Comment on above: Performed By: #### C A19O, LUPUS #### The performing lab is in the report. #### NSEO #### [facility] #### HEMDF, LDH3, BMP3, MG3, PT, CEA2 #### [facility] [address] [place], [place] #### B2GPM, B2GPA, B2GPG #### [address] MCV (RBC) [Entitic vol] 85.9 fL Normal 80.0-98.0 [facility] Comment on above: Performed By: #### C A19O, LUPUS #### The performing lab is in the report. #### NSEO #### [facility] #### HEMDF, LDH3, BMP3, MG3, PT, CEA2 #### [facility] [address] [place] #### B2GPM, B2GPA, B2GPG #### [address] Monocytes (Bld) [#/Vol] 0.6 10*3/uL Normal 0.0-0.8 [facility] Comment on above: Performed By: #### C A19O, LUPUS #### The performing lab is in the report. #### NSEO #### [facility] #### HEMDF, LDH3, BMP3, MG3, PT, CEA2 #### [facility] [address] [place] #### B2GPM, B2GPA, B2GPG #### [address] Monocytes/100 WBC (Bld) 6.0 % Normal 2.0-10.0 [facility] Comment on above: Performed By: #### C A19O, LUPUS #### The performing lab is in the report. #### NSEO #### [facility] #### HEMDF, LDH3, BMP3, MG3, PT, CEA2 #### [facility] [address] [place] #### B2GPM, B2GPA, B2GPG #### [address] Platelet mean volume (Bld) [Entitic vol] 8.1 fL Normal 7.4-12.4 [facility] Comment on above: Result Comment: MPV is a calculated measurement using platelet volume ratio. Performed By: #### C A19O, LUPUS #### The performing lab is in the report. #### NSEO #### [facility] #### HEMDF, LDH3, BMP3, MG3, PT, CEA2 #### [facility] [address] [place] #### B2GPM, B2GPA, B2GPG #### [address] Platelets (Bld) [#/Vol] 450 10*3/uL High 140-440 [facility] Comment on above: Performed By: #### C A19O, LUPUS #### The performing lab is in the report. #### NSEO #### [facility] #### HEMDF, LDH3, BMP3, MG3, PT, CEA2 #### [facility] [address] [place] [address] #### B2GPM, B2GPA, B2GPG #### [address] RBC (Bld) [#/Vol] 4.08 10*6/uL Low 4.40-5.90 [facility] Comment on above: Performed By: #### C A19O, LUPUS #### The performing lab is in the report. #### NSEO #### [facility] #### HEMDF, LDH3, BMP3, MG3, PT, CEA2 #### [facility] [address] [place] [address] #### B2GPM, B2GPA, B2GPG #### [address] WBC (Bld) [#/Vol] 10.3 10*3/uL Normal 3.6-10.7 [facility] Comment on above: Performed By: #### C A19O, LUPUS #### The performing lab is in the report. #### NSEO #### [facility] #### HEMDF, LDH3, BMP3, MG3, PT, CEA2 #### [facility] [address] [place] [address] #### B2GPM, B2GPA, B2GPG #### [address] LDHon 10-23-2021 LDH 136 U/L Normal 120-246 [facility] Comment on above: Performed By: #### C A19O, LUPUS #### The performing lab is in the report. #### NSEO #### [facility] #### HEMDF, LDH3, BMP3, MG3, PT, CEA2 #### [facility] [address] [place] [address] #### B2GPM, B2GPA, B2GPG #### [facility] [address] [place] [address] Lactate Dehydrogenaseon 06- LD 136 U/L 120 - 246 U/L [facility] Work Phone: MRI ABDOMEN WO CONTRASTon Patient Name: ANDREW SIFUENTES Magnetic Resonance Imaging ACCESSION EXAM DATE/TIME PROCEDURE ORDERING PROVIDER [id number] 10/23/2021 11:08 EDT MRI Abdomen w/o Contrast WING SRIVASTAVA CPT code 09008 Reason For Exam (MRI Abdomen w/o Contrast) [...] Imaging ACCESSION EXAM DATE/TIME PROCEDURE ORDERING PROVIDER [id number] 10/23/2021 11:08 EDT MRI Abdomen w/o Contrast WING SRIVASTAVA CPT code 58319 Reason For Exam (MRI Abdomen w/o Contrast) [...] VLADIMIR Transcribed Date and Time: 10/23/2021 4:36 [facility] Work Phone: MRI ABDOMEN WO CONTRASTOrder ed By: Unknown Result on 10-23-2021 [facility] MRI Abdomen w/o Contraston 0 10-23-2021 MRI Abdomen w/o Contrast Patient Name: ANDREW SIFUENTES Magnetic Resonance Imaging ACCESSION EXAM DATE/TIME PROCEDURE ORDERING PROVIDER [id number] 10/23/2021 11:08 EDT MRI Abdomen w/o Contrast WING SRIVASTAVA CPT code 58183 Reason For Exam (MRI Abdomen w/o Contrast) [...] Date and Time: 10/23/2021 4:36 Normal [facility] Magnesiumon 10-23-2021 Magnesium [Mass/Vol] 2.1 mg/dL Normal 1.6-2.3 [facility] Comment on above: Performed By: #### C A19O, LUPUS #### The performing lab is in the report. #### NSEO #### [facility] #### HEMDF, LDH3, BMP3, MG3, PT, CEA2 #### [facility] [address] [place] [address] #### B2GPM, B2GPA, B2GPG #### [facility] [address] [place] [address] Magnesium [Mass/Vol] 2.1 mg/dL 1.6 - 2 .3 mg/dL [facility] Work Phone: No Panel Informationon 10-23 Test Performed by [facility], [address] [place], [place] [id number] [place] [address] LAB [facility] Work Phone: Prothrombin Timeon 2 INR 1.1 Normal 0.9-1.1 [facility] Comment on above: Result Comment: Harry [...] LDH3, BMP3, MG3, PT, CEA2 #### [address] [place] [address] #### B2GPM, B2GPA, B2GPG #### [address] [address] PT Coag (PPP) [Time] 12.2 s High 9.0-12.0 [facility] Comment on above: Result Comment: . Performed By: #### C A19O, LUPUS #### The performing lab is in the report. #### NSEO #### [facility] #### HEMDF, LDH3, BMP3, MG3, PT, CEA2 #### [address] [place] [address] #### B2GPM, B2GPA, B2GPG #### [address] [address] Protime-INRon 10-23-2021 INR Coag (Bld) [Relative time] 1.1 {INR} [facility] Work Phone: Comment on above: Recommended [...] 12.2 s High 9.0 - 12.0 s [facility] Work Phone: Comment on above: . Test Performed by [facility], [address] [place] [address] [facility] LAB [facility] Work Phone: Basic Metabolic Panelon 10-05 Calcium [Mass/Vol] 8.9 mg/dL Normal 8.4-10.4 [facility] Comment on above: Performed By: #### P T #### [facility] [address] [place] [address] Glucose [Mass/Vol] 110 mg/dL High 70-100 [facility] Comment on above: Performed By: #### P T #### [facility] [address] [place] [address] Urea nitrogen [Mass/Vol] 14 mg/dL Normal 7-17 [facility] Comment on above: Performed By: #### P T #### [facility] [address] [place] [address] Anion gap [Moles/Vol] 7 mmol/L Normal 3-13 [facility] Comment on above: Performed By: #### P T #### [facility] [address] [place] [address] CO2 [Moles/Vol] 26 mmol/L Normal 22-30 [facility] Comment on above: Performed By: #### P T #### [facility] [address] [place] [address] Creatinine [Mass/Vol] 0.71 mg/dL Normal 0.52-1.25 [facility] Comment on above: Performed By: #### P T #### [facility] [address] [place] [address] eGFR OTHER > 90.0 Normal >60 [facility] Comment on above: Result Comment: KDIG [...] Performed By: #### P T #### [facility] [address] [place] [address] GFR/1.73 sq M.predicted among blacks MDRD (S/P/Bld) [Vol rate/Area] mL/min/{1.73_m2} Normal >60 [facility] Comment on above: Performed By: #### P T #### [facility] [address] [place] [address] Potassium [Moles/Vol] 3.8 mmol/L Normal 3.5-5.1 [facility] Comment on above: Performed By: #### P T #### [facility] [address] [place] [address] Chloride [Moles/Vol] 106 mmol/L Normal 98-107 [facility] Comment on above: Performed By: #### P T #### [facility] [address] [place] [address] Sodium [Moles/Vol] 139 mmol/L Normal 135-145 [facility] Comment on above: Performed By: #### P T #### [facility] [address] [place] [address] Anion gap [Moles/Vol] 7 mmol/L 3 - 13 mmol/L [facility] Calcium [Mass/Vol] 8.9 mg/dL 8.4 - 10. 4 mg/dL [facility] Chloride [Moles/Vol] 106 mmol/L 98 - 10 7 mmol/L [facility] CO2 [Moles/Vol] 26 mmol/L 22 - 30 mmol/L [facility] Creatinine [Mass/Vol] 0.71 mg/dL 0.52 - 1.25 mg/dL [facility] EGFR IF NonAfrican Northern Irish >90.0 >60 mL/min [facility] Comment on above: KDIGO guidelines [...] - 10.7 10*3/uL [facility] Test Performed by [facility], [address] [place], [place] [id number] [place] [address] [facility] [address] Abdomen Pelvis Wo Contras ton 10-22-2021 Patient Name: ANDREW SIFUENTES Computed Tomography ACCESSION EXAM DATE/TIME PROCEDURE ORDERING PROVIDER [id number] 10/22/2021 13:[address] Abdomen/Pelvis (No SRIVASTAVA, WING PO, No IV) CPT code 55588 Reason For Exam (CT Abdomen/Pelvis (No PO, [...] HARLAN Transcribed Date and Time: 10/22/2021 2:37 [facility] RAD Humphrey Melton MD - 10/22/2021 Patient Name: ANDREW SIFUENTES Computed Tomography ACCESSION EXAM DATE/TIME PROCEDURE ORDERING PROVIDER [id number] 10/22/2021 13:[address] Abdomen/Pelvis (No SRIVASTAVA, WING PO, No IV) CPT code 06250 Reason For Exam (CT Abdomen/Pelvis (No PO, [...] Tomography ACCESSION EXAM DATE/TIME PROCEDURE ORDERING PROVIDER [id number] 10/22/2021 13:[address] Abdomen/Pelvis (No SRIVASTAVA, WING PO, No IV) CPT code 25930 Reason For Exam (CT Abdomen/Pelvis (No PO, [...] Date and Time: 10/22/2021 2:37 Normal [facility] Hemogram w/ Autodiffon 10-22 Abs Baso Cnt 0.1 10*3/uL Normal 0.0-0.2 [facility] Comment on above: Performed By: #### P T #### [facility] [address] [place] [address] Abs Neutrophile Cnt 6.0 10*3/uL Normal 1.8-7.0 [facility] Comment on above: Performed By: #### P T #### [facility] [address] [place] [address] Basophils/100 WBC (Bld) 1.0 % Normal 0.0-2.0 [facility] Comment on above: Performed By: #### P T #### [facility] [address] [place] [address] Eosinophils (Bld) [#/Vol] 0.3 10*3/uL Normal 0.0-0.5 [facility] Comment on above: Performed By: #### P T #### [facility] [address] [place] [address] Eosinophils/100 WBC (Bld) 3.0 % Normal 1.0-6.0 [facility] Comment on above: Performed By: #### P T #### [facility] [address] [place] [address] Erythrocyte distribution width (RBC) [Ratio] 17.1 % High 11.5-14.5 [facility] Comment on above: Performed By: #### P T #### [facility] [address] [place] [address] Granulocytes/100 WBC (Bld) 64.1 % Normal 40.0-80.0 [facility] Comment on above: Performed By: #### P T #### [facility] [address] [place] [address] Hematocrit (Bld) [Volume fraction] 33.4 % Low 40.0-52.0 [facility] Comment on above: Performed By: #### P T #### [facility] [address] [place] [address] Hemoglobin (Bld) [Mass/Vol] 10.9 g/dL Low 13.0-18.0 [facility] Comment on above: Performed By: #### P T #### [facility] [address] [place] [address] Lymphocytes (Bld) [#/Vol] 2.5 10*3/uL Normal 1.0-4.3 [facility] Comment on above: Performed By: #### P T #### [facility] [address] [place] [address] Lymphocytes/100 WBC (Bld) 26.3 % Normal 20.0-40.0 [facility] Comment on above: Performed By: #### P T #### [facility] [address] [place] [address] MCH (RBC) [Entitic mass] 28.2 pg Normal 26.0-34.0 [facility] Comment on above: Performed By: #### P T #### [place] [address] [place] [address] MCHC 32.7 % Normal 32.0-36.0 [facility] Comment on above: Performed By: #### P T #### [facility] [address] [place] [address] MCV (RBC) [Entitic vol] 86.3 fL Normal 80.0-98.0 [facility] Comment on above: Performed By: #### P T #### [place] [address] [place] [address] Monocytes (Bld) [#/Vol] 0.5 10*3/uL Normal 0.0-0.8 [facility] Comment on above: Performed By: #### P T #### [facility] [address] [place] [address] Monocytes/100 WBC (Bld) 5.6 % Normal 2.0-10.0 [facility] Comment on above: Performed By: #### P T #### [facility] [address] [place] [address] Platelet mean volume (Bld) [Entitic vol] 7.6 fL Normal 7.4-12.4 [facility] Comment on above: Result Comment: MPV is a calculated measurement using platelet volume ratio. Performed By: #### P T #### [place] [address] [place] [address] Platelets (Bld) [#/Vol] 369 10*3/uL Normal 140-440 [facility] Comment on above: Performed By: #### P T #### [facility] [address] [place] [address] RBC (Bld) [#/Vol] 3.87 10*6/uL Low 4.40-5.90 [facility] Comment on above: Performed By: #### P T #### [facility] [address] [place] [address] WBC (Bld) [#/Vol] 9.4 10*3/uL Normal 3.6-10.7 [facility] Comment on above: Performed By: #### P T #### [facility] [address] [place] [address] Magnesiumon 10-22-2021 Magnesium [Mass/Vol] 2.0 mg/dL Normal 1.6-2.3 [facility] Comment on above: Performed By: #### P T #### [facility] [address] [place] [address] Magnesium [Mass/Vol] 2.0 mg/dL 1.6 - 2 .3 mg/dL [facility] No Panel Informationon 10-22 Radiology Study observation (narrative) [facility] Work Phone: Test Performed by [facility], [address] [place], [place] [address] [facility] LAB [facility] Prothrombin Timeon 2 INR 1.1 Normal 0.9-1.1 [facility] Comment on above: Result Comment: Harry [...] LDH3, BMP3, MG3, PT, CEA2 #### [facility] [address] [place] [address] #### B2GPM, B2GPA, B2GPG #### [facility] [address] [place] [address] PT Coag (PPP) [Time] 11.8 s Normal 9.0-12.0 [facility] Comment on above: Result Comment: . Performed By: #### C A19O, LUPUS #### The performing lab is in the report. #### NSEO #### [facility] #### HEMDF, LDH3, BMP3, MG3, PT, CEA2 #### [facility] [address] [place] [address] #### B2GPM, B2GPA, B2GPG #### [address] [address] Protime-INRon 10-22-2021 INR Coag (Bld) [Relative time] 1.1 {INR} [facility] Work Phone: Comment on above: [...] [Time] 11.8 s 9.0 - 12.0 s [facility] Work Phone: Comment on above: . Test Performed by [facility], [address], [place], [place] [address] [facility] LAB [facility] Work Phone: VL Ankle Art Brachial Indice s Extremity Bilateralon 10-22-2021 [facility] Ankle Brachial Index Report Patient RADHA Sifuentes: 1950 Study 10/21/2021 Name: Andrew Gonzalez (71yrs) Date: Age: 71 Account: [id number] Gender: M Loc: 444W BP: Ordering Physician: Shruthi Malik Roof Truss Machine Tender: Rody Cross RDMS, RVT Interpreting Physician: Carina Call Location: [facility] Indications: Foot wounds. Originally ordered as a full PVR. Ordering FLOORMAN had to modify the order to ABIs [...] supine position. Images were obtained using a Radio Rebels vascular ultrasound machine. Arterial pressure indices: + [...] CARDIOLOGY Carina Call MD - 10/22/2021 [facility] Ankle Brachial Index Report Patient GurpreetRADHA: 1950 Study 10/21/2021 Name: Andrew R (71yrs) Date: Age: 71 Account: [id number] Gender: M Loc: 444W BP: Ordering Physician: Shruthi Malik Roof Truss Machine Tender: Rody Cross RDMS RVT Interpreting Physician: Carina Call Location: [facility] Indications: Foot wounds. Originally ordered as a full PVR. Ordering FLOORMAN had to modify the order to ABIs [...] supine position. Images were obtained using a Radio Rebels vascular ultrasound machine. Arterial pressure indices: + [...] signed by Carina Call 10/22/2021 13:21 [facility] Work [facility]: [facility] Work Phone: Basic Metabolic Panelon 10-05 Calcium [Mass/Vol] 9.1 mg/dL Normal 8.4-10.4 [facility] Comment on above: Performed By: #### C OVAG #### [facility] [employer] [address] [place] [address] Anion gap [Moles/Vol] 6 mmol/L Normal 3-13 [facility] Comment on above: Performed By: #### C OVAG #### [facility] [employer] [address] [place] [address] CO2 [Moles/Vol] 29 mmol/L Normal 22-30 [facility] Comment on above: Performed By: #### C OVAG #### [facility] [employer] [address] [place] [address] Creatinine [Mass/Vol] 0.90 mg/dL Normal 0.52-1.25 [facility] Comment on above: Performed By: #### C OVAG #### [facility] [address] [place] [address] GFR/1.73 sq M.predicted among blacks MDRD (S/P/Bld) [Vol rate/Area] mL/min/{1.73_m2} Normal >60 [facility] Comment on above: Performed By: #### C OVAG #### [facility] [address] [place] [address] GFR/1.73 sq M.predicted among non-blacks MDRD (S/P/Bld) [Vol rate/Area] 86.6 mL/min/{1.73_m2} Normal >60 [facility] Comment on above: Result Comment: KDIG [...] Performed By: #### C OVAG #### [facility] [address] [place] [address] Glucose [Mass/Vol] 106 mg/dL High 70-100 [facility] Comment on above: Performed By: #### C OVAG #### [facility] [address] [place] [address] Urea nitrogen [Mass/Vol] 18 mg/dL High 7-17 [facility] Comment on above: Performed By: #### C OVAG #### [facility] [address] [place] [address] Chloride [Moles/Vol] 105 mmol/L Normal 98-107 [facility] Comment on above: Performed By: #### C OVAG #### [facility] [address] [place] [address] Potassium [Moles/Vol] 4.3 mmol/L Normal 3.5-5.1 [facility] Comment on above: Performed By: #### C OVAG #### [facility] [address] [place] [address] Sodium [Moles/Vol] 139 mmol/L Normal 135-145 [facility] Comment on above: Performed By: #### C OVAG #### [facility] [address] [place] [address] Anion gap [Moles/Vol] 6 mmol/L 3 - 13 mmol/L [facility] Calcium [Mass/Vol] 9.1 mg/dL 8.4 - 10. 4 mg/dL [facility] Chloride [Moles/Vol] 105 mmol/L 98 - 10 7 mmol/L [facility] CO2 [Moles/Vol] 29 mmol/L 22 - 30 mmol/L [facility] Creatinine [Mass/Vol] 0.9 mg/dL 0.52 - 1.25 mg/dL [facility] EGFR IF NonAfrican Northern Irish 86.6 mL/min >60 [facility] Comment on above: KDIGO guidelines [...] - 17 mg/dL [facility] Test Performed by [facility], [address] LAB [facility] C-Reactive Proteinon 022 CRP [Mass/Vol] 33.5 mg/L High 0.0-9.9 [facility] Comment on above: Result Comment: . Performed By: #### P T #### [facility] [address] [place] [address] CRP [Mass/Vol] 33.5 mg/L High 0.0 - 9.9 mg/L [facility] Comment on above: . Interpretation and review of laboratory results Abnormal [facility] Test Performed by [facility], [address] LAB [facility] CR Calcaneus 2+ Views Lefton 10-21-2021 CR Calcaneus 2+ Views Left Patient [facility]: 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 Well's) to exclude pulmonary embolism (PE) disease, as well as an aid in the diagnosis of deep vein thrombosis (DVT). Performed By: #### P T #### [facility] [address] [place] [address] D-Dimer, Quantitativeon 10-05 D-Dimer, Quant 1.51 mg/L High <0.19 - 0.50 [facility] Comment on above: Innovance D-Dimer va lues of <0.50 mg/L FEU can be used in combination with a pre-test probability model (e.g. Well's) to exclude pulmonary embolism (PE) disease, as well as an aid in the diagnosis of deep vein thrombosis (DVT). Interpretation and review of laboratory results Abnormal [facility] Test Performed by [facility], [address], [place], [place] [address] [facility] LAB [facility] ED Provider Noteon ED Provider Note [facility] ED EMERGENCY DEPARTMENT ENCOUNTER Pt Name: [...] (HCC) ? Kidney stone ? Neuropathy ? SHOE RECONDITIONER (ventriculoperitoneal) shunt status SURGICAL HISTORY Past Surgical [...] and Family: Not on file ? Attends Buddhist Services: Not on file ? Active Member [...] LUNGS: Respirations (more content not included)... Normal [facility] Hemogramon 10-21-2021 Erythrocyte distribution width (RBC) [Ratio] 17.3 % High 11.5-14.5 [facility] Comment on above: Performed By: #### C OVAG #### [facility] [address] [place] [address] Hematocrit (Bld) [Volume fraction] 33.6 % Low 40.0-52.0 [facility] Comment on above: Performed By: #### C OVAG #### [facility] [address] [place] [address] Hemoglobin (Bld) [Mass/Vol] 10.9 g/dL Low 13.0-18.0 [facility] Comment on above: Performed By: #### C OVAG #### [facility] [address] [place] [address] MCH (RBC) [Entitic mass] 27.8 pg Normal 26.0-34.0 [facility] Comment on above: Performed By: #### C OVAG #### [facility] [address] [place] [address] MCHC 32.5 % Normal 32.0-36.0 [facility] Comment on above: Performed By: #### C OVAG #### [facility] [address] [place] [address] MCV (RBC) [Entitic vol] 85.6 fL Normal 80.0-98.0 [facility] Comment on above: Performed By: #### C OVAG #### [facility] [address] [place] [address] Platelet mean volume (Bld) [Entitic vol] 7.7 fL Normal 7.4-12.4 [facility] Comment on above: Result Comment: MPV is a calculated measurement using platelet volume ratio. Performed By: #### C OVAG #### [facility] [address] [place] [address] Platelets (Bld) [#/Vol] 404 10*3/uL Normal 140-440 [facility] Comment on above: Performed By: #### C OVAG #### [facility] [address] [place] [address] RBC (Bld) [#/Vol] 3.93 10*6/uL Low 4.40-5.90 [facility] Comment on above: Performed By: #### C OVAG #### [facility] [address] [place] [address] WBC (Bld) [#/Vol] 11.6 10*3/uL High 3.6-10.7 [facility] Comment on above: Performed By: #### C OVAG #### [facility] [address] [place] [address] Hemogram (CBC)on 10-21-2021 Hematocrit (Bld) [Volume fraction] 33.6 % Low 40.0 - 52.0 % [facility] Hemoglobin (Bld) [Mass/Vol] 10.9 g/dL Low 13.0 - 18.0 g/dL [facility] Interpretation and review of laboratory [...] - 10.7 10*3/uL [facility] Test Performed by [facility] [facility], [address] [place], [place], [place] [address] [facility] NM LUNG VENT/PERFUSION (VQ)o n 10-21-2021 Patient Name: NADREW SIFUENTES Nuclear Medicine ACCESSION EXAM DATE/TIME PROCEDURE ORDERING PROVIDER [id number] 10/21/2021 07:55 EDT NM Pulmonary Perfusion [id number] MAY BOGGS w/ Vent Aerosol CPT code 29275 A9567 Reason For Exam (NM Pulmonary Perfusion [...] JOHN Transcribed Date and Time: 10/21/2021 8:49 Henry Rousseau MD - 10/21/2021 Patient Name: ANDREW SIFUENTES Nuclear Medicine ACCESSION EXAM DATE/TIME PROCEDURE ORDERING PROVIDER [id number] 10/21/2021 07:55 EDT NM Pulmonary Perfusion [id number] MAY BOGGS w/ Vent Aerosol CPT code 59375 A9567 Reason For Exam (NM Pulmonary Perfusion [...] JOHN Transcribed Date and Time: 10/21/2021 8:49 [facility] Work Phone: NM LUNG VENT/PERFUSION (VQ)O rdered By: Henry Harvey on 10-21-2021 [facility] Work Phone: NM Pulmonary Perfusion w/ Ve nt Aerosol or Gason 10-21-2021 NM Pulmonary Perfusion w/ Vent Aerosol or Gas Patient Name: ANDREW SIFUENTES Nuclear Medicine ACCESSION EXAM DATE/TIME PROCEDURE ORDERING PROVIDER [id number] 10/21/2021 07:55 EDT NM Pulmonary Perfusion [id number] -MAY CASH w/ Vent Aerosol CPT code 71351 A9567 Reason For Exam (NM Pulmonary Perfusion [...] Date and Time: 10/21/2021 8:49 Normal [facility] No Panel Informationon 10-21 Radiology Study observation (narrative) [facility] Work Phone: Prothrombin Timeon 2 INR 1.1 Normal 0.9-1.1 [facility] Comment on above: Result Comment: Harry [...] Performed By: #### C OVAG #### [facility] [address] [place] [address] PT Coag (PPP) [Time] 11.5 s Normal 9.0-12.0 [facility] Comment on above: Result Comment: . Performed By: #### C OVAG #### [facility] [address] [place] [address] Protime-INRon 10-21-2021 INR Coag (Bld) [Relative time] 1.1 {INR} [facility] Comment on above: Recommended Anticoag [...] [Time] 11.5 s 9.0 - 12.0 s [facility] Comment on above: . Test Performed by [facility], [address] [facility] Retic Count(%)on 10-21-2021 Retic Count(%) 1.6 Normal [facility] Comment on above: Result Comment: Newb orn < 5% Adults 0.5 - 1.5% Performed By: #### P T #### [facility] [address] [place] [address] Reticulocyteson 10-21-[address] Pct 1.6 [facility] Comment on above: < 5% Adults 0.5 - 1.5% Test Performed by [facility], [address] [place], [place] [id number] [place] [address] [facility] Sed Rateon 10-21-2021 Sed Rate 63 mm/h High 0-10 [facility] Comment on above: Performed By: #### P T #### [facility] [address] [place] [address] Sedimentation Rateon 022 Interpretation and review of laboratory results Abnormal [facility] Sed Rate 63 mm/h High 0 - 10 mm/h [facility] Test Performed by [facility], [address], [place], [place] [address] [facility] LAB [facility] VL CARMELLA Upr/L Extremity Art 1 -2 Levelson 10-21-2021 VL CARMELLA Upr/L Extremity Art 1-2 Levels Patient Name: ANDREW SIFUENTES Ultrasound ACCESSION EXAM DATE/TIME PROCEDURE ORDERING PROVIDER [id number] 10/21/2021 16:12 EDT VL Upr/L Extremity Art [id number] -SHRUTHI MALIK 1-2 Levels CPT code 68973 Reason For Exam (VL Upr/L Extremity Art 1-2 Levels) both lower legs CARMELLA for both feet wounds. Report [facility] Ankle Brachial Index Report Patient RADHA Sifuentes: 1950 Study 10/21/2021 Name: Andrew Gonzalez (71yrs) Date: Age: 71 Account: [id number] Gender: M Loc: 444W BP: Ordering Physician: Shruthi Malik Roof Truss Machine Tender: Rody Cross RDMS, RVT Interpreting Physician: Carina Call Location: [facility] Indications: Foot wounds. Originally ordered as a full PVR. Ordering FLOORMAN had to modify the order to ABIs [...] supine position. Images were obtained using a Radio Rebels vascular ultrasound machine. Arterial pressure indices: + [...] CARINA HENNESSY Cardiovascular ACCESSION EXAM DATE/TIME PROCEDURE [id number] 10/21/2021 16:12 EDT VL Upr/L Extremity Art 1-2 Levels CPT code 55299 Reason For Exam (VL Upr/L Extremity Art 1-2 Levels) both lower legs CARMELLA for both feet wounds. Report [facility] Ankle Brachial Index Report Patient DO GurpreetB: 1950 Study 10/21/2021 Name: Andrew Gonzalez (71yr) Date: Age: 71 Account: [id number] Cardiovascular Report Gender: M Loc: 444W BP: Ordering Physician: Shruthi Malik Roof Truss Machine Tender: Rody Cross RDMS, RVT Interpreting Physician: Carina Call Location: [facility] Indications: Foot wounds. Originally ordered as a full PVR. Ordering FLOORMAN had to modify the order to ABIs [...] th (more content not included)... Normal [facility] VL LOWER EXTREMITY BILATERAL VENOUS DUPLEXon 10-21-2021 [facility] Lower Extremity Venous Duplex Report Patient DO GurpreetB: 1950 Study 10/21/2021 Name: Andrew Gonzalez (71yrs) Date: Age: 71 Account: [id number] Gender: M Loc: 444 BP: Ordering Physician: May Cash Roof Truss Machine Tender: Rody Cross RDMS, RVT Interpreting Physician: Carina Call Location: [facility] Indications: Bilateral lower leg edema. CRITICAL [...] supine position. Images were obtained using a Radio Rebels vascular ultrasound machine. Venous flow and imaging: [...] CARDIOLOGY Carina Call MD - 10/21/2021 [facility] Lower Extremity Venous Duplex Report Patient DO GurpreetB: 1950 Study 10/21/2021 Name: Andrew Gonzalez (71yrs) Date: Age: 71 Account: [id number] Gender: M Loc: 444 BP: Ordering Physician: May Cash Roof Truss Machine Tender: Rody Cross RDMS, RVT Interpreting Physician: Carina Call Location: [facility] Indications: Bilateral lower leg edema. CRITICAL [...] supine position. Images were obtained using a Radio Rebels vascular ultrasound machine. Venous flow and imaging: [...] + + +----- (more content not included)... [employer] Work Phone: VL LOWER EXTREMITY BILATERAL VENOUS DUPLEXOrdered By: Carina Call on 10-21-2021 [employer] Work Phone: VL Venous Duplex US Lower Ex t Bilateralon 10-21-2021 VL Venous Duplex US Lower Ext Bilateral Patient Name: ANDREW SIFUENTES Ultrasound ACCESSION EXAM DATE/TIME PROCEDURE ORDERING PROVIDER [id number] 10/21/2021 09:53 EDT VL Venous Duplex [place] [id number] -MAY CASH Lower Ext Bilateral CPT code 99948 Reason For Exam (VL Venous Duplex US Lower Ext Bilateral) bilateral sqwelling redness Report [facility] Lower Extremity Venous Duplex Report Luís Sifuentes DOB: 1950 Study 10/21/2021 Name: Andrew Gonzalez (71yr) Date: Age: 71 Account: [id number] Gender: M Loc: 444 BP: Ordering Physician: May Cash Roof Truss Machine Tender: Rody Cross RDMS, T Interpreting Physician: Carina Call Location: [facility] Indications: Bilateral lower leg edema. CRITICAL [...] supine position. Images were obtained using a Radio Rebels vascular ultrasound machine. Venous flow and imaging: [...] + + (more content not included)... Normal [facility] XR CALCANEUS LEFT (MIN 2 VIE WS)on 10-21-2021 [facility]: [id number] Radiology ACCESSION EXAM DATE/TIME PROCEDURE ORDERING PROVIDER [id number] 10/21/2021 15:30 EDT CR Calcaneus 2+ Views [id number] -SHRUTHI MALIK Left CPT code 61000 Reason For Exam (CR Calcaneus 2+ Views [...] Name: [id number] Diagnostic Radiology ACCESSION EXAM DATE/TIME PROCEDURE ORDERING PROVIDER [id number] 10/21/2021 15:30 EDT CR Calcaneus 2+ Views [id number] -SHRUTHI MALIK Left CPT code 92773 Reason For Exam (CR Calcaneus 2+ Views [...] J Transcribed Date and Time: 10/21/2021 4:33 [facility] Work Phone: XR CALCANEUS LEFT (MIN 2 VIE WS)Ordered By: Alan Wong on 10-21-2021 [facility] Work Phone: XR Chest 1 VWon 10-21-2021 Patient Name: ANDREW SIFUENTES Diagnostic Radiology ACCESSION EXAM DATE/TIME PROCEDURE ORDERING PROVIDER [id number] 10/21/2021 08:16 EDT CR Chest 1 View Frontal [id number] FOSTER CPT code 59385 Reason For Exam (CR Chest 1 View [...] OSAMA Transcribed Date and Time: 10/21/2021 8:33 [facility] RAD Venus Loyd MD - 10/21/2021 Patient Name: ANDREW SIFUENTES Diagnostic Radiology ACCESSION EXAM DATE/TIME PROCEDURE ORDERING PROVIDER [id number] 10/21/2021 08:16 EDT CR Chest 1 View Frontal [id number] CONTI CPT code 50163 Reason For Exam (CR Chest 1 View [...] RAMOS Transcribed Date and Time: 10/21/2021 8:33 [facility] Work Phone: XR Chest 1 VWOrdered By: Natalie Loyd on 10-21-2021 [facility] Work Phone: Basophil percentageon 2021 Chloride [Moles/Vol] 108 mmol/L 98-107 [facility] Work Phone: Glucose [Mass/Vol] 93 mg/dL 74-106 [facility] Work Phone: Potassium [Moles/Vol] 3.9 mmol/L 3.5-5.1 [facility] Work Phone: Sodium [Moles/Vol] 140 mmol/L 136-145 [facility] Work Phone: WBC (Bld) [#/Vol] 8.7 10*3/uL 4.4-11.0 [facility] Work Phone: Blood erythrocytes count (nu mber/volume)on 10-20-2021 RBC (Bld) [#/Vol] 3.63 10*6/uL 4.6-6.2 [facility] Work Phone: Blood hemoglobin measurement (mass/volume)on 10-20-2021 Hemoglobin (Bld) [Mass/Vol] 10.1 g/dL 13.0-16.5 [facility] Work Phone: Blood platelet mean volumeon 10-20-2021 Platelet mean volume (Bld) [Entitic vol] 9.8 fL 6.2-12.0 [facility] Work Phone: Determination of erythrocyte mean corpuscular volume (MCV)on 10-20-2021 MCV (RBC) [Entitic vol] 90.1 fL 80-94 [facility] Work Phone: Hematocrit Auto (Bld) [Volum e fraction]on 10-20-2021 Hematocrit (Bld) [Volume fraction] 32.7 % 40-54 [facility] Work Phone: Laboratory - Chemistry and C hemistry - challengeon 10-20-2021 CO2 [Moles/Vol] 25.0 mmol/L 21.0-32.0 [facility] Work Phone: Urea nitrogen/Creatinine [Mass ratio] 17.4 mg/mg 10-20 [facility] Work Phone: Laboratory - Hematology and Cell countson 10-20-2021 Erythrocyte distribution width (RBC) [Entitic vol] 52.1 fL 35.1-43.9 [facility] Work Phone: Erythrocyte distribution width (RBC) [Ratio] 15.6 % 11.6-14.6 [facility] Work Phone: MCH (RBC) [Entitic mass] 27.8 pg 27.0-32.0 [facility] Work Phone: MCHC Auto (RBC) [Mass/Vol]on 10-20-2021 MCHC (RBC) [Mass/Vol] 30.9 g/dL 32-36 [facility] Work Phone: No Panel Informationon 10-20 Estimated GFR (MDRD) Amer 133 mL/min >60 [facility] Work Phone: Comment on above: GFR Calc Estimated GFR (MDRD) Non-Af Amer 110 mL/min >60 [facility] Work Phone: Comment on above: Non- GFR Calc Platelets bldon 10-20-2021 Platelets (Bld) [#/Vol] 404 10*3/uL 150-450 [facility] Work Phone: Serum or plasma calcium oral urement (mass/volume)on 10-20-2021 Calcium [Mass/Vol] 9.1 mg/dL 8.5-10.1 [facility] Work Phone: Serum or plasma creatinine m easurement (mass/volume)on 10-20-2021 Creatinine [Mass/Vol] 0.75 mg/dL 0.70-1.30 [facility] Work Phone: Comment on above: The validity of the calculated GFR & GFRAA in patients over 70 years has not been determined. Clinical correlation is essential. Serum or plasma urea nitroge n measurement (mass/volume)on 10-20-2021 Urea nitrogen [Mass/Vol] 13 mg/dL 7-18 [facility] Work Phone: Thin prep Papanicolaou smear with manual screeningon 10-20-2021 Thin prep Papanicolaou smear with manual screening 7 5-15 [facility] Work Phone: CNPNon 10-17-2021 CNPN Normal [facility] Absolute lymphocyte counton 09-19-2021 Lymphocytes Auto (Unsp spec) [#/Vol] 1.74 10*3/uL 0.83-4.51 [facility] Work Phone: Basophil percentageon 2021 Basophils/100 WBC (Bld) 0.6 % 0-1 [facility] Work Phone: Bilirubin [Mass/Vol] 0.30 mg/dL 0.20-1.00 [facility] Work Phone: Comment on above: For patients on eltr ombopag therapy, use of Dimension [place] TBIL is not recommended. Chloride [Moles/Vol] 105 mmol/L 98-107 [facility] Work Phone: Eosinophils/100 WBC (Bld) 3.5 % 0-5 [facility] Work Phone: Glucose [Mass/Vol] 91 mg/dL 74-106 [facility] Work Phone: Neutrophils (Bld) [#/Vol] 4.2 10*3/uL 2.0-7.7 [facility] Work Phone: Neutrophils/100 WBC (Bld) 62.6 % 47-70 [facility] Work Phone: Potassium [Moles/Vol] 3.8 mmol/L 3.5-5.1 [facility] Work Phone: Protein [Mass/Vol] 6.3 g/dL 6.4-8.2 [place] [facility] Work Phone: Sodium [Moles/Vol] 139 mmol/L 136-145 [place] [facility] Work Phone: [phone] WBC (Bld) [#/Vol] 6.6 10*3/uL 4.4-11.0 [place] [facility] Work Phone: Blood erythrocytes count (nu mber/volume)on 09-19-2021 RBC (Bld) [#/Vol] 3.47 10*6/uL 4.6-6.2 [place] [facility] Work Phone: Blood hemoglobin measurement (mass/volume)on 09-19-2021 Hemoglobin (Bld) [Mass/Vol] 10.2 g/dL 13.0-16.5 [facility] Work Phone: Blood lymphocytes/100 leukoc yteson 09-19-2021 Lymphocytes/100 WBC (Bld) 26.2 % 19-41 [facility] Work Phone: Blood monocytes/100 leukocyt eson 09-19-2021 Monocytes/100 WBC (Bld) 6.5 % 0-10 [facility] Work Phone: Blood platelet mean volumeon 09-19-2021 Platelet mean volume (Bld) [Entitic vol] 9.6 fL 6.2-12.0 [facility] Work Phone: Determination of erythrocyte mean corpuscular volume (MCV)on 09-19-2021 MCV (RBC) [Entitic vol] 94.8 fL 80-94 [facility] Work Phone: Hematocrit Auto (Bld) [Volum e fraction]on 09-19-2021 Hematocrit (Bld) [Volume fraction] 32.9 % 40-54 [facility] Work Phone: Laboratory - Chemistry and C hemistry - challengeon 09-19-2021 ALP [Catalytic activity/Vol] 109 U/L 45-117 [facility] Work Phone: ALT [Catalytic activity/Vol] 23 U/L 16-61 [facility] Work Phone: CO2 [Moles/Vol] 26.0 mmol/L 21.0-32.0 [facility] Work Phone: Globulin (S) [Mass/Vol] 3.5 g/dL 2.2-4.2 [facility] Work Phone: Urea nitrogen/Creatinine [Mass ratio] 15.3 mg/mg 10-20 [facility] Work Phone: Laboratory - Hematology and Cell countson 09-19-2021 Erythrocyte distribution width (RBC) [Entitic vol] 59.4 fL 35.1-43.9 [facility] Work Phone: Erythrocyte distribution width (RBC) [Ratio] 17.1 % 11.6-14.6 [facility] Work Phone: Immature granulocytes/100 WBC (Bld) 0.600 % 0.0-0.9 [facility] Work Phone: Comment on above: IG% - Immature Granu locytes (promyelocytes, myelocytes and metamyelocytes) > 1% indicates that a LEFT SHIFT is Present. MCH (RBC) [Entitic mass] 29.4 pg 27.0-32.0 [facility] Work Phone: Nucleated RBC/100 WBC (Bld) [Ratio] 0 % 0-5 [facility] Work Phone: MCHC Auto (RBC) [Mass/Vol]on 09-19-2021 MCHC (RBC) [Mass/Vol] 31.0 g/dL 32-36 [facility] Work Phone: No Panel Informationon 09-19 Estimated GFR (MDRD) Amer 175 mL/min >60 [facility] Work Phone: Comment on above: GFR Calc Estimated GFR (MDRD) Non-Af Amer 145 mL/min >60 [facility] Work Phone: Comment on above: Non- GFR Calc Platelets bldon 09-19-2021 Platelets (Bld) [#/Vol] 342 10*3/uL 150-450 [facility] Work Phone: Serum or plasma albumin oral urement (mass/volume)on 09-19-2021 Albumin [Mass/Vol] 2.8 g/dL 3.2-5.0 [facility] Work Phone: Serum or plasma albumin/glob ulin mass ratioon 09-19-2021 Albumin/Globulin [Mass ratio] 0.8 {ratio} 0.9-2.4 [facility] Work Phone: Serum or plasma calcium oral urement (mass/volume)on 09-19-2021 Calcium [Mass/Vol] 9.0 mg/dL 8.5-10.1 [facility] Work Phone: Serum or plasma creatinine m easurement (mass/volume)on 09-19-2021 Creatinine [Mass/Vol] 0.59 mg/dL 0.70-1.30 [facility] Work Phone: Comment on above: The validity of the calculated GFR & GFRAA in patients over 70 years has not been determined. Clinical correlation is essential. Serum or plasma urea nitroge n measurement (mass/volume)on 09-19-2021 Urea nitrogen [Mass/Vol] 9 mg/dL 7-18 [facility] Work Phone: Thin prep Papanicolaou smear with manual screeningon 09-19-2021 Thin prep Papanicolaou smear with manual screening 12 U/L 15-37 [facility] Work Phone: Thin prep Papanicolaou smear with manual screening 8 5-15 [facility] Work Phone: OPERATIVE NOon 08-22-2021 OPERATIVE NO Normal [facility] Basic metabolic 2000 panelon 08-19-2021 Anion gap [Moles/Vol] 10 mmol/L Normal 9-18 [facility] Comment on above: Order Comment: Speci men Type: BLOOD SPECIMENOrdering Facility: [facility] Address: [address] [place] [address] Performed By: #### 2 4321-2 ####[facility] LABORATORYCLIA [id number] [place] [address] [place] Calcium [Mass/Vol] 8.6 mg/dL Normal 8.5-10.2 [facility] Comment on above: Order Comment: Speci men Type: BLOOD SPECIMENOrdering Facility: [facility] Address: [address] [place] [address] Performed By: #### 2 4321-2 ####[facility] LABORATORYCLIA [id number] [address] [place] Chloride [Moles/Vol] 99 mmol/L Normal 97-105 [facility] Comment on above: Order Comment: Speci men Type: BLOOD SPECIMENOrdering Facility: [facility] Address: [address] [place] [address] Performed By: #### 2 4321-2 ####[facility] LABORATORYCLIA [id number] [address] OF [place] CO2 [Moles/Vol] 29 mmol/L Normal 22-30 [facility] Comment on above: Order Comment: Speci men Type: BLOOD SPECIMENOrdering Facility: [facility] Address: [address] [place] [address] Performed By: #### 2 4321-2 ####[facility] LABORATORYCLIA [id number] [place] [address] [place] Creatinine [Mass/Vol] 0.58 mg/dL Low 0.73-1.22 [facility] Comment on above: Order Comment: Speci men Type: BLOOD SPECIMENOrdering Facility: [facility] Address: [address] [place] [address] Performed By: #### 2 4321-2 ####[facility] LABORATORYCLIA [id number] [address] [place] ESTIMATED GLOMERULAR FILTRATION RATE 106 mL/min/1.73m??? Normal >=60 [facility] Comment on above: Order Comment: Shira feldman Type: BLOOD SPECIMENOrdering Facility: [facility] Address: [address] [place] [address] Result Comment: Luzmaria mated Glomerular Filtration Rate [...] #### 2 4321-2 ####[facility] LABORATORYCLIA [id number] [place] [address] [place] Glucose [Mass/Vol] 101 mg/dL High 74-99 [facility] Comment on above: Order Comment: Shira feldman Type: BLOOD SPECIMENOrdering Facility: [facility] Address: [address] [place] [address] Result Comment: The [place] [employer] (ADA) provides guidance for cutoff [...] Standards of Medical Care in Diabetes 2016, [place] [employer]. Diabetes Care. 2016.39(Suppl 1). Performed By: #### 2 4321-2 ####[facility] LABORATORYCLIA [id number] [place] [address] [place] Potassium [Moles/Vol] 3.5 mmol/L Low 3.7-5.1 [facility] Comment on above: Order Comment: Shira feldman Type: BLOOD SPECIMENOrdering Facility: [facility] Address: [address] [address] Performed By: #### 2 4321-2 ####[facility] LABORATORYCLIA [id number] [address] [place] Sodium [Moles/Vol] 138 mmol/L Normal 136-144 [facility] Comment on above: Order Comment: Speci men Type: BLOOD SPECIMENOrdering Facility: [facility] Address: [address] [place] [address] Performed By: #### 2 4321-2 ####[facility] LABORATORYCLIA [id number] [place] [address] [place] Urea nitrogen [Mass/Vol] 11 mg/dL Normal 9-24 [facility] Comment on above: Order Comment: Speci men Type: BLOOD SPECIMENOrdering Facility: [facility] Address: [address] [place] [address] Performed By: #### 2 4321-2 ####[facility] LABORATORYCLIA [id number] [address] [place] CASE MANAGEMon 08-19-2021 CASE MANAGEM Normal [facility] CBC W Auto Differential pane l (Bld)on 08-19-2021 Basophils (Bld) [#/Vol] 0.03 10*3/uL Normal <0.11 [facility] Comment on above: Order Comment: Speci men Type: BLOOD SPECIMENOrdering Facility: [facility] Address: [address] [place] [address] Performed By: #### 5 7021-8 ####[facility] LABORATORYCLIA [id number] [address] [place] Basophils/100 WBC (Bld) 0.4 % Normal [facility] Comment on above: Order Comment: Speci men Type: BLOOD SPECIMENOrdering Facility: [facility] Address: [address] [place] [address] Performed By: #### 5 7021-8 ####[facility] LABORATORYCLIA [id number] [address] Differential cell count method Nom (Bld) Auto Normal [facility] Comment on above: Order Comment: Speci men Type: BLOOD SPECIMENOrdering Facility: [facility] Address: [address] [place] [address] Performed By: #### 5 7021-8 ####[facility] LABORATORYCLIA [id number] [address] [place] Eosinophils (Bld) [#/Vol] 0.24 10*3/uL Normal <0.46 [facility] Comment on above: Order Comment: Speci men Type: BLOOD SPECIMENOrdering Facility: [facility] Address: [address] [place] [address] Performed By: #### 5 7021-8 ####[facility] LABORATORYCLIA [id number] [address] Eosinophils/100 WBC (Bld) 3.1 % Normal [facility] Comment on above: Order Comment: Speci men Type: BLOOD SPECIMENOrdering Facility: [facility] Address: [address] [place] [address] Performed By: #### 5 7021-8 ####[facility] LABORATORYCLIA [id number] [address] [place] Erythrocyte distribution width (RBC) [Ratio] 17.5 % High 11.5-15.0 [facility] Comment on above: Order Comment: Speci men Type: BLOOD SPECIMENOrdering Facility: [facility] Address: [address] [place] [address] Performed By: #### 5 7021-8 ####[facility] LABORATORYCLIA [id number] [address] Hematocrit (Bld) [Volume fraction] 30.2 % Low 39.0-51.0 [facility] Comment on above: Order Comment: Speci men Type: BLOOD SPECIMENOrdering Facility: [facility] Address: [address] [place] [address] Performed By: #### 5 7021-8 ####[facility] LABORATORYCLIA [id number] [address] [place] Hemoglobin (Bld) [Mass/Vol] 9.6 g/dL Low 13.0-17.0 [facility] Comment on above: Order Comment: Speci men Type: BLOOD SPECIMENOrdering Facility: [facility] Address: [address] [place] [address] Performed By: #### 5 7021-8 ####[facility] LABORATORYCLIA [id number] [address] IMMATURE GRAN % 0.4 % Normal [facility] Comment on above: Order Comment: Speci men Type: BLOOD SPECIMENOrdering Facility: [facility] Address: [address] [place] [address] Performed By: #### 5 7021-8 ####[facility] LABORATORYCLIA [id number] [address] IMMATURE GRAN ABS 0.03 k/uL Normal <0.10 [facility] Comment on above: Order Comment: Speci men Type: BLOOD SPECIMENOrdering Facility: [facility] Address: [address] [place] [address] Performed By: #### 5 7021-8 ####[facility] LABORATORYCLIA [id number] [address] [place] Lymphocytes (Bld) [#/Vol] 1.71 10*3/uL Normal 1.00-4.00 [facility] Comment on above: Order Comment: Speci men Type: BLOOD SPECIMENOrdering Facility: [facility] Address: [address] [place] [address] Performed By: #### 5 7021-8 ####[facility] LABORATORYCLIA [id number] [address] Lymphocytes/100 WBC (Bld) 22.2 % Normal [facility] Comment on above: Order Comment: Speci men Type: BLOOD SPECIMENOrdering Facility: [facility] Address: [address] [place] [address] Performed By: #### 5 7021-8 ####[facility] LABORATORYCLIA [id number] [address] MCH (RBC) [Entitic mass] 29.4 pg Normal 26.0-34.0 [facility] Comment on above: Order Comment: Speci men Type: BLOOD SPECIMENOrdering Facility: [facility] Address: [address] [place] [address] Performed By: #### 5 7021-8 ####[facility] LABORATORYCLIA [id number] [address] MCHC (RBC) [Mass/Vol] 31.8 g/dL Normal 30.5-36.0 [facility] Comment on above: Order Comment: Speci men Type: BLOOD SPECIMENOrdering Facility: [facility] Address: [address] [place] [address] Performed By: #### 5 7021-8 ####[facility] LABORATORYCLIA [id number] [address] [place] [facility] MCV (RBC) [Entitic vol] 92.6 fL Normal 80.0-100.0 [facility] Comment on above: Order Comment: Speci men Type: BLOOD SPECIMENOrdering Facility: [facility] Address: [address] [place] [address] Performed By: #### 5 7021-8 ####[facility] LABORATORYCLIA [id number] [address] Monocytes (Bld) [#/Vol] 0.50 10*3/uL Normal <0.87 [facility] Comment on above: Order Comment: Speci men Type: BLOOD SPECIMENOrdering Facility: [facility] Address: [address] [place] [address] Performed By: #### 5 7021-8 ####[facility]ORATORYCLIA [id number] [address] Monocytes/100 WBC (Bld) 6.5 % Normal [facility] Comment on above: Order Comment: Speci men Type: BLOOD SPECIMENOrdering Facility: [facility] Address: [address] [place] [address] Performed By: #### 5 7021-8 ####[facility]ORATORYCLIA [id number] [address] [place] Neutrophils (Bld) [#/Vol] 5.20 10*3/uL Normal 1.45-7.50 [facility] Comment on above: Order Comment: Speci men Type: BLOOD SPECIMENOrdering Facility: [facility] Address: [address] [place] [address] Performed By: #### 5 7021-8 ####[facility]ORATORYCLIA [id number] [address] [place] Neutrophils/100 WBC (Bld) 67.4 % Normal [facility] Comment on above: Order Comment: Speci men Type: BLOOD SPECIMENOrdering Facility: [facility] Address: [address] [place] [address] Performed By: #### 5 7021-8 ####[facility]ORATORYCLIA [id number] [address] [place] Nucleated RBC (Bld) [#/Vol] 10*3/uL Normal <0.01 [facility] Comment on above: Order Comment: Speci men Type: BLOOD SPECIMENOrdering Facility: [facility] Address: [address] [place] [address] Performed By: #### 5 7021-8 ####[facility]ORATORYCLIA [id number] [address] [place] Nucleated RBC/100 WBC (Bld) [Ratio] 0.0 /100 WBC Normal [facility] Comment on above: Order Comment: Speci men Type: BLOOD SPECIMENOrdering Facility: [facility] Address: [address] [place] [address] Performed By: #### 5 7021-8 ####[facility]ORATORYCLIA [id number] [address] [place] Platelet mean volume (Bld) [Entitic vol] 8.9 fL Low 9.0-12.7 [facility] Comment on above: Order Comment: Speci men Type: BLOOD SPECIMENOrdering Facility: [facility] Address: [address] [place] [address] Performed By: #### 5 7021-8 ####[facility] LABORATORYCLIA [id number] [address] [place] Platelets (Bld) [#/Vol] 408 10*3/uL High 150-400 [facility] Comment on above: Order Comment: Speci men Type: BLOOD SPECIMENOrdering Facility: [facility] Address: [address] [place] [address] Performed By: #### 5 7021-8 ####[facility]ORATORYCLIA [id number] [place] [address] [place] RBC (Bld) [#/Vol] 3.26 10*6/uL Low 4.20-6.00 [facility] Comment on above: Order Comment: Speci men Type: BLOOD SPECIMENOrdering Facility: [facility] Address: [address] [place] [address] Performed By: #### 5 7021-8 ####[facility]ORATORYCLIA [id number] [place] [address] [place] WBC (Bld) [#/Vol] 7.71 10*3/uL Normal 3.70-11.00 [facility] Comment on above: Order Comment: Speci men Type: BLOOD SPECIMENOrdering Facility: [facility] Address: [address] [place] [address] Performed By: #### 5 7021-8 ####[facility]ORATORYCLIA [id number] [address] [place] CNDSon 08-19-2021 CNDS Normal [facility] CONSULT PROGon 08-19-2021 CONSULT PROG Normal [facility] THERAPY NTon 08-19-2021 THERAPY NT Normal [facility] Basic metabolic 2000 panelon 08-18-2021 Anion gap [Moles/Vol] 11 mmol/L Normal 9-18 [facility] Comment on above: Order Comment: Speci men Type: BLOOD SPECIMENOrdering Facility: [facility] Address: [address] [place] [address] Performed By: #### 2 4321-2 ####[facility]ORATORYCLIA [id number] [place] [address] [place] Calcium [Mass/Vol] 8.6 mg/dL Normal 8.5-10.2 [facility] Comment on above: Order Comment: Speci men Type: BLOOD SPECIMENOrdering Facility: [facility] Address: [address] [place] [address] Performed By: #### 2 4321-2 ####[facility]ORATORYCLIA [id number] [place] [address] [place] Chloride [Moles/Vol] 98 mmol/L Normal 97-105 [facility] Comment on above: Order Comment: Speci men Type: BLOOD SPECIMENOrdering Facility: [facility] Address: [address] [place] [address] Performed By: #### 2 4321-2 ####[facility]ORATORYCLIA [id number] [place] [address] [place] CO2 [Moles/Vol] 28 mmol/L Normal 22-30 [facility] Comment on above: Order Comment: Speci men Type: BLOOD SPECIMENOrdering Facility: [facility] Address: [address] [place] [address] Performed By: #### 2 4321-2 ####[facility]ORATORYCLIA [id number] [place] [address] [place] Creatinine [Mass/Vol] 0.56 mg/dL Low 0.73-1.22 [facility] Comment on above: Order Comment: Speci men Type: BLOOD SPECIMENOrdering Facility: [facility] Address: [address] [address] Performed By: #### 2 4321-2 ####[facility]ITALCLIA [id number] [address] [place] ESTIMATED GLOMERULAR FILTRATION RATE 107 mL/min/1.73m??? Normal >=60 [facility] Comment on above: Order Comment: Shira feldman Type: BLOOD SPECIMENOrdering Facility: [facility] Address: [address] [address] Result Comment: Luzmaria mated Glomerular Filtration Rate [...] By: #### 2 4321-2 ####[facility] HOSPITALIA [id number] [place] [address] [place] Glucose [Mass/Vol] 113 mg/dL High 74-99 [facility] Comment on above: Order Comment: Shira feldman Type: BLOOD SPECIMENOrdering Facility: [facility] Address: [address] [address] Result Comment: The [employer] [place] [employer] (ADA) provides guidance for cutoff [...] Standards of Medical Care in Diabetes 2016, [employer] [place] [employer]. Diabetes Care. 2016.39(Suppl 1). Performed By: #### 2 4321-2 ####[facility] LABORATORYCLIA [id number] [place] [id number] [place] Potassium [Moles/Vol] 3.5 mmol/L Low 3.7-5.1 [facility] Comment on above: Order Comment: Speci men Type: BLOOD SPECIMENOrdering Facility: [facility] Address: [address] [place] [address] Performed By: #### 2 4321-2 ####[facility]ORATORYCLIA [id number] [address] [place] [facility] Sodium [Moles/Vol] 137 mmol/L Normal 136-144 [facility] Comment on above: Order Comment: Speci men Type: BLOOD SPECIMENOrdering Facility: [facility] Address: [address] [place] [address] Performed By: #### 2 4321-2 ####[facility]ORATORYCLIA [id number] [address] [place] [facility] Urea nitrogen [Mass/Vol] 10 mg/dL Normal 9-24 [facility] Comment on above: Order Comment: Speci men Type: BLOOD SPECIMENOrdering Facility: [facility] Address: [address] [place] [address] Performed By: #### 2 4321-2 ####[facility]ORATORYCLIA [id number] [address] [place] [facility] CBC W Auto Differential pane l (Bld)on 08-18-2021 Basophils (Bld) [#/Vol] 10*3/uL Normal <0.11 [facility] Comment on above: Order Comment: Speci men Type: BLOOD SPECIMENOrdering Facility: [facility] Address: [address] [place] [address] Performed By: #### 5 7021-8 ####[facility] LABORATORYCLIA [id number] [address] STATES [facility] Basophils/100 WBC (Bld) 0.3 % Normal [facility] Comment on above: Order Comment: Speci men Type: BLOOD SPECIMENOrdering Facility: [facility] Address: [address] [place] [address] Performed By: #### 5 7021-8 ####[facility]ORATORYCLIA [id number] [address] Differential cell count method Nom (Bld) Auto Normal [facility] Comment on above: Order Comment: Speci men Type: BLOOD SPECIMENOrdering Facility: [facility] Address: [address] [place] [address] Performed By: #### 5 7021-8 ####[facility]ORATORYCLIA [id number] [address] Eosinophils (Bld) [#/Vol] 0.37 10*3/uL Normal <0.46 [facility] Comment on above: Order Comment: Speci men Type: BLOOD SPECIMENOrdering Facility: [facility] Address: [address] [place] [address] Performed By: #### 5 7021-8 ####[facility]ORATORYCLIA [id number] [address] Eosinophils/100 WBC (Bld) 4.8 % Normal [facility] Comment on above: Order Comment: Speci men Type: BLOOD SPECIMENOrdering Facility: [facility] Address: [address] [place] [address] Performed By: #### 5 7021-8 ####[facility]ORATORYCLIA [id number] [address] Erythrocyte distribution width (RBC) [Ratio] 17.5 % High 11.5-15.0 [facility] Comment on above: Order Comment: Speci men Type: BLOOD SPECIMENOrdering Facility: [facility] Address: [address] [place] [address] Performed By: #### 5 7021-8 ####[facility]ORATORYCLIA [id number] [address] Hematocrit (Bld) [Volume fraction] 30.2 % Low 39.0-51.0 [facility] Comment on above: Order Comment: Speci men Type: BLOOD SPECIMENOrdering Facility: [facility] Address: [address] [place] [address] Performed By: #### 5 7021-8 ####[facility]ORATORYCLIA [id number] [address] Hemoglobin (Bld) [Mass/Vol] 9.5 g/dL Low 13.0-17.0 [facility] Comment on above: Order Comment: Speci men Type: BLOOD SPECIMENOrdering Facility: [facility] Address: [address] [place] [address] Performed By: #### 5 7021-8 ####[facility]ORATORYCLIA [id number] [address] IMMATURE GRAN % 0.4 % Normal [facility] Comment on above: Order Comment: Speci men Type: BLOOD SPECIMENOrdering Facility: [facility] Address: [address] [place] [address] Performed By: #### 5 7021-8 ####[facility]ORATORYCLIA [id number] [address] IMMATURE GRAN ABS 0.03 k/uL Normal <0.10 [facility] Comment on above: Order Comment: Speci men Type: BLOOD SPECIMENOrdering Facility: [facility] Address: [address] [place] [address] Performed By: #### 5 7021-8 ####[facility]ORATORYCLIA [id number] [address] [place] Lymphocytes (Bld) [#/Vol] 1.85 10*3/uL Normal 1.00-4.00 [facility] Comment on above: Order Comment: Speci men Type: BLOOD SPECIMENOrdering Facility: [facility] Address: [address] [place] [address] Performed By: #### 5 7021-8 ####[facility]ORATORYCLIA [id number] [address] Lymphocytes/100 WBC (Bld) 23.8 % Normal [facility] Comment on above: Order Comment: Speci men Type: BLOOD SPECIMENOrdering Facility: [facility] Address: [address] [place] [address] Performed By: #### 5 7021-8 ####[facility]ORATORYCLIA [id number] [address] MCH (RBC) [Entitic mass] 29.5 pg Normal 26.0-34.0 [facility] Comment on above: Order Comment: Speci men Type: BLOOD SPECIMENOrdering Facility: [facility] Address: [address] [place] [address] Performed By: #### 5 7021-8 ####[facility]ORATORYCLIA [id number] [address] MCHC (RBC) [Mass/Vol] 31.5 g/dL Normal 30.5-36.0 [facility] Comment on above: Order Comment: Speci men Type: BLOOD SPECIMENOrdering Facility: [facility] Address: [address] [place] [address] Performed By: #### 5 7021-8 ####[facility]ORATORYCLIA [id number] [address] MCV (RBC) [Entitic vol] 93.8 fL Normal 80.0-100.0 [facility] Comment on above: Order Comment: Speci men Type: BLOOD SPECIMENOrdering Facility: [facility] Address: [address] [place] [address] Performed By: #### 5 7021-8 ####[facility]ORATORYCLIA [id number] [address] Monocytes (Bld) [#/Vol] 0.49 10*3/uL Normal <0.87 [facility] Comment on above: Order Comment: Speci men Type: BLOOD SPECIMENOrdering Facility: [facility] Address: [address] [place] [address] Performed By: #### 5 7021-8 ####[facility]ORATORYCLIA [id number] [place] [address] [place] Monocytes/100 WBC (Bld) 6.3 % Normal [facility] Comment on above: Order Comment: Speci men Type: BLOOD SPECIMENOrdering Facility: [facility] Address: [address] [place] [address] Performed By: #### 5 7021-8 ####[facility]ORATORYCLIA [id number] [place] [address] [place] Neutrophils (Bld) [#/Vol] 5.00 10*3/uL Normal 1.45-7.50 [facility] Comment on above: Order Comment: Speci men Type: BLOOD SPECIMENOrdering Facility: [facility] Address: [address] [place] [address] Performed By: #### 5 7021-8 ####[facility]ORATORYCLIA [id number] [address] [place] Neutrophils/100 WBC (Bld) 64.4 % Normal [facility] Comment on above: Order Comment: Speci men Type: BLOOD SPECIMENOrdering Facility: [facility] Address: [address] [place] [address] Performed By: #### 5 7021-8 ####[facility]ORATORYCLIA [id number] [place] [address] [place] Nucleated RBC (Bld) [#/Vol] 10*3/uL Normal <0.01 [facility] Comment on above: Order Comment: Speci men Type: BLOOD SPECIMENOrdering Facility: [facility] Address: [address] [place] [address] Performed By: #### 5 7021-8 ####[facility]ORATORYCLIA [id number] [place] [address] [place] Nucleated RBC/100 WBC (Bld) [Ratio] 0.0 /100 WBC Normal [facility] Comment on above: Order Comment: Speci men Type: BLOOD SPECIMENOrdering Facility: [facility] Address: [address] [place] [address] Performed By: #### 5 7021-8 ####[facility]ORATORYCLIA [id number] [address] [place] Platelet mean volume (Bld) [Entitic vol] 9.1 fL Normal 9.0-12.7 [facility] Comment on above: Order Comment: Speci men Type: BLOOD SPECIMENOrdering Facility: [facility] Address: [address] [place] [address] Performed By: #### 5 7021-8 ####[facility]ORATORYCLIA [id number] [place] [address] [place] Platelets (Bld) [#/Vol] 391 10*3/uL Normal 150-400 [facility] Comment on above: Order Comment: Speci men Type: BLOOD SPECIMENOrdering Facility: [facility] Address: [address] [place] [address] Performed By: #### 5 7021-8 ####[facility]ORATORYCLIA [id number] [place] [address] [place] RBC (Bld) [#/Vol] 3.22 10*6/uL Low 4.20-6.00 [facility] Comment on above: Order Comment: Speci men Type: BLOOD SPECIMENOrdering Facility: [facility] Address: [address] [place] [address] Performed By: #### 5 7021-8 ####[facility]ORATORYCLIA [id number] [address] [place] WBC (Bld) [#/Vol] 7.76 10*3/uL Normal 3.70-11.00 [facility] Comment on above: Order Comment: Speci men Type: BLOOD SPECIMENOrdering Facility: [facility] Address: [address] [place] [address] Performed By: #### 5 7021-8 ####[facility]ORATORYCLIA [id number] [address] OF [facility] CONSULT PROGon 08-18-2021 CONSULT PROG Normal [facility] CASE MANAGEMon 08-17-2021 CASE MANAGEM Normal [facility] CBC W Auto Differential pane l (Bld)on 08-17-2021 Basophils (Bld) [#/Vol] 0.04 10*3/uL Normal <0.11 [facility] Comment on above: Order Comment: Speci men Type: BLOOD SPECIMENOrdering Facility: [facility] Address: [address] [place] [address] Performed By: #### 5 7021-8 ####[facility]ORATORYCLIA [id number] [address] [place] Basophils/100 WBC (Bld) 0.5 % Normal [facility] Comment on above: Order Comment: Speci men Type: BLOOD SPECIMENOrdering Facility: [facility] Address: [address] [place] [address] Performed By: #### 5 7021-8 ####[facility]ORATORYCLIA [id number] [address] [place] Differential cell count method Nom (Bld) Auto Normal [facility] Comment on above: Order Comment: Speci men Type: BLOOD SPECIMENOrdering Facility: [facility] Address: [address] [place] [address] Performed By: #### 5 7021-8 ####[facility]ORATORYCLIA [id number] [place] [address] [place] Eosinophils (Bld) [#/Vol] 0.31 10*3/uL Normal <0.46 [facility] Comment on above: Order Comment: Speci men Type: BLOOD SPECIMENOrdering Facility: [facility] Address: [address] [place] [address] Performed By: #### 5 7021-8 ####[facility]ORATORYCLIA [id number] [address] [place] Eosinophils/100 WBC (Bld) 3.7 % Normal [facility] Comment on above: Order Comment: Speci men Type: BLOOD SPECIMENOrdering Facility: [facility] Address: [address] [place] [address] Performed By: #### 5 7021-8 ####[facility]ORATORYCLIA [id number] [address] Erythrocyte distribution width (RBC) [Ratio] 17.4 % High 11.5-15.0 [facility] Comment on above: Order Comment: Speci men Type: BLOOD SPECIMENOrdering Facility: [facility] Address: [address] [place] [address] Performed By: #### 5 7021-8 ####[facility]ORATORYCLIA [id number] [address] Hematocrit (Bld) [Volume fraction] 30.6 % Low 39.0-51.0 [facility] Comment on above: Order Comment: Speci men Type: BLOOD SPECIMENOrdering Facility: [facility] Address: [address] [place] [address] Performed By: #### 5 7021-8 ####[facility]ORATORYCLIA [id number] [address] [place] [facility] Hemoglobin (Bld) [Mass/Vol] 9.6 g/dL Low 13.0-17.0 [facility] Comment on above: Order Comment: Speci men Type: BLOOD SPECIMENOrdering Facility: [facility] Address: [address] [place] [address] Performed By: #### 5 7021-8 ####[facility]ORATORYCLIA [id number] [address] IMMATURE GRAN % 0.2 % Normal [facility] Comment on above: Order Comment: Speci men Type: BLOOD SPECIMENOrdering Facility: [facility] Address: [address] [place] [address] Performed By: #### 5 7021-8 ####[facility]ORATORYCLIA [id number] [address] IMMATURE GRAN ABS <0.03 Normal <0.10 [facility] Comment on above: Order Comment: Speci men Type: BLOOD SPECIMENOrdering Facility: [facility] Address: [address] [place] [address] Performed By: #### 5 7021-8 ####[facility]ORATORYCLIA [id number] [address] [place] Lymphocytes (Bld) [#/Vol] 1.66 10*3/uL Normal 1.00-4.00 [facility] Comment on above: Order Comment: Speci men Type: BLOOD SPECIMENOrdering Facility: [facility] Address: [address] [place] [address] Performed By: #### 5 7021-8 ####[facility]ORATORYCLIA [id number] [address] Lymphocytes/100 WBC (Bld) 19.9 % Normal [facility] Comment on above: Order Comment: Speci men Type: BLOOD SPECIMENOrdering Facility: [facility] Address: [address] [place] [address] Performed By: #### 5 7021-8 ####[facility]ORATORYCLIA [id number] [address] [place] MCH (RBC) [Entitic mass] 28.9 pg Normal 26.0-34.0 [facility] Comment on above: Order Comment: Speci men Type: BLOOD SPECIMENOrdering Facility: [facility] Address: [address] [place] [address] Performed By: #### 5 7021-8 ####[facility]ORATORYCLIA [id number] [address] [place] MCHC (RBC) [Mass/Vol] 31.4 g/dL Normal 30.5-36.0 [facility] Comment on above: Order Comment: Speci men Type: BLOOD SPECIMENOrdering Facility: [facility] Address: [address] [place] [address] Performed By: #### 5 7021-8 ####[facility] LABORATORYCLIA [id number] [place] [address] [place] MCV (RBC) [Entitic vol] 92.2 fL Normal 80.0-100.0 [facility] Comment on above: Order Comment: Speci men Type: BLOOD SPECIMENOrdering Facility: [facility] Address: [address] [place] [address] Performed By: #### 5 7021-8 ####[facility] LABORATORYCLIA [id number] [place] [address] [place] Monocytes (Bld) [#/Vol] 0.52 10*3/uL Normal <0.87 [facility] Comment on above: Order Comment: Speci men Type: BLOOD SPECIMENOrdering Facility: [facility] Address: [address] [place] [address] Performed By: #### 5 7021-8 ####[facility]ORATORYCLIA [id number] [address] [place] Monocytes/100 WBC (Bld) 6.2 % Normal [facility] Comment on above: Order Comment: Speci men Type: BLOOD SPECIMENOrdering Facility: [facility] Address: [address] [place] [address] Performed By: #### 5 7021-8 ####[facility] LABORATORYCLIA [id number] [place] [address] [place] Neutrophils (Bld) [#/Vol] 5.78 10*3/uL Normal 1.45-7.50 [facility] Comment on above: Order Comment: Speci men Type: BLOOD SPECIMENOrdering Facility: [facility] Address: [address] [place] [address] Performed By: #### 5 7021-8 ####[facility]ORATORYCLIA [id number] [address] [place] Neutrophils/100 WBC (Bld) 69.5 % Normal [facility] Comment on above: Order Comment: Speci men Type: BLOOD SPECIMENOrdering Facility: [facility] Address: [address] [place], [place] [address] Performed By: #### 5 7021-8 ####[facility]ORATORYCLIA [id number] [address] Nucleated RBC (Bld) [#/Vol] 10*3/uL Normal <0.01 [facility] Comment on above: Order Comment: Speci men Type: BLOOD SPECIMENOrdering Facility: [facility] Address: [address] [place] [address] Performed By: #### 5 7021-8 ####[facility]ORATORYCLIA [id number] [address] OF [facility] Nucleated RBC/100 WBC (Bld) [Ratio] 0.0 /100 WBC Normal [facility] Comment on above: Order Comment: Speci men Type: BLOOD SPECIMENOrdering Facility: [facility] Address: [address] [place] [address] Performed By: #### 5 7021-8 ####[facility]ORATORYCLIA [id number] [address] Platelet mean volume (Bld) [Entitic vol] 9.2 fL Normal 9.0-12.7 [facility] Comment on above: Order Comment: Speci men Type: BLOOD SPECIMENOrdering Facility: [facility] Address: [address] [place] [address] Performed By: #### 5 7021-8 ####[facility]ORATORYCLIA [id number] [address] [place] Platelets (Bld) [#/Vol] 379 10*3/uL Normal 150-400 [facility] Comment on above: Order Comment: Speci men Type: BLOOD SPECIMENOrdering Facility: [facility] Address: [address] [place] [address] Performed By: #### 5 7021-8 ####[facility]ORATORYCLIA [id number] [address] [place] RBC (Bld) [#/Vol] 3.32 10*6/uL Low 4.20-6.00 [facility] Comment on above: Order Comment: Speci men Type: BLOOD SPECIMENOrdering Facility: [facility] Address: [address] [place] [address] Performed By: #### 5 7021-8 ####[facility]ORATORYCLIA [id number] [place] [address] [place] WBC (Bld) [#/Vol] 8.33 10*3/uL Normal 3.70-11.00 [facility] Comment on above: Order Comment: Speci men Type: BLOOD SPECIMENOrdering Facility: [facility] Address: [address] [place] [address] Performed By: #### 5 7021-8 ####[facility] LABORATORYCLIA [id number] [address] [place] CONSULT PROGon 08-17-2021 CONSULT PROG Normal [facility] NUTRITIONon 08-17-2021 NUTRITION Normal [facility] Basic metabolic 2000 panelon 08-16-2021 Anion gap [Moles/Vol] 14 mmol/L Normal 9-18 [facility] Comment on above: Order Comment: Speci men Type: BLOOD SPECIMENOrdering Facility: [facility] Address: [address] [place] [address] Performed By: #### 2 4321-2, 70203-5 ####[facility]ORATORYCLIA [id number] [place] [address] [place] Calcium [Mass/Vol] 8.8 mg/dL Normal 8.5-10.2 [facility] Comment on above: Order Comment: Speci men Type: BLOOD SPECIMENOrdering Facility: [facility] Address: [address] [place] [address] Performed By: #### 2 4321-2, 94669-0 ####[facility]ORATORYCLIA [id number] [place] [address] [place] Chloride [Moles/Vol] 97 mmol/L Normal 97-105 [facility] Comment on above: Order Comment: Speci men Type: BLOOD SPECIMENOrdering Facility: [facility] Address: [address] [place] [address] Performed By: #### 2 432-2, ####[facility]ORATORYCLIA [id number] [address] [place] CO2 [Moles/Vol] 27 mmol/L Normal 22-30 [facility] Comment on above: Order Comment: Speci men Type: BLOOD SPECIMENOrdering Facility: [facility] Address: [address] [place] [address] Performed By: #### 2 4322, ####[facility]ORATORYCLIA [id number] [address] [place] [facility] Creatinine [Mass/Vol] 0.50 mg/dL Low 0.73-1.22 [facility] Comment on above: Order Comment: Speci men Type: BLOOD SPECIMENOrdering Facility: [facility] Address: [address] [place] [address] Performed By: #### 2 4320-06, ####[facility]ORATORYCLIA [id number] [address] ESTIMATED GLOMERULAR FILTRATION RATE 110 mL/min/1.73m??? Normal >=60 [facility] Comment on above: Order Comment: Speci men Type: BLOOD SPECIMENOrdering Facility: [facility] Address: [address] [place] [address] Result Comment: Luzmaria mated Glomerular Filtration Rate [...] actual GFR. Performed By: #### 2 4321-2, ####[facility]ORATORYCLIA [id number] [place] [id number] [place] Glucose [Mass/Vol] 101 mg/dL High 74-99 [facility] Comment on above: Order Comment: Speccara men Type: BLOOD SPECIMENOrdering Facility: [facility] Address: [address] [place] [address] Result Comment: The [place] [employer] (ADA) provides guidance for cutoff [...] Standards of Medical Care in Diabetes 2016, [employer] [place] [employer]. Diabetes Care. 2016.39(Suppl 1). Performed By: #### 2 4320-06, ####[facility]ORATORYCLIA [id number] [place] [address] [place] Potassium [Moles/Vol] 3.6 mmol/L Low 3.7-5.1 [facility] Comment on above: Order Comment: Shira feldman Type: BLOOD SPECIMENOrdering Facility: [facility] Address: [address] [place] [address] Performed By: #### 2 ####[facility]ORATORYCLIA [id number] [place] [address] [place] Sodium [Moles/Vol] 138 mmol/L Normal 136-144 [facility] Comment on above: Order Comment: Shira feldman Type: BLOOD SPECIMENOrdering Facility: [facility] Address: [address] [place] [address] Performed By: #### 2 4320-06, ####[facility]ORATORYCLIA [id number] [place] [address] [place] Urea nitrogen [Mass/Vol] 11 mg/dL Normal 9-24 [facility] Comment on above: Order Comment: Speci men Type: BLOOD SPECIMENOrdering Facility: [facility] Address: [address] [place] [address] Performed By: #### 2 4321-2, 59710-6 ####[facility]ORATORYCLIA [id number] [address] [place] CASE MANAGEMon 08-16-2021 CASE MANAGEM Normal [facility] CBC W Auto Differential pane l (Bld)on 08-16-2021 Basophils (Bld) [#/Vol] 0.03 10*3/uL Normal <0.11 [facility] Comment on above: Order Comment: Speci men Type: BLOOD SPECIMENOrdering Facility: [facility] Address: [address] [place] [address] Performed By: #### 5 7021-8 ####[facility]ORATORYCLIA [id number] [address] [place] Basophils/100 WBC (Bld) 0.4 % Normal [facility] Comment on above: Order Comment: Speci men Type: BLOOD SPECIMENOrdering Facility: [facility] Address: [address] [place] [address] Performed By: #### 5 7021-8 ####[facility]ORATORYCLIA [id number] [address] [place] Differential cell count method Nom (Bld) Auto Normal [facility] Comment on above: Order Comment: Speci men Type: BLOOD SPECIMENOrdering Facility: [facility] Address: [address] [place] [address] Performed By: #### 5 7021-8 ####[facility]ORATORYCLIA [id number] [place] [address] [place] Eosinophils (Bld) [#/Vol] 0.19 10*3/uL Normal <0.46 [facility] Comment on above: Order Comment: Speci men Type: BLOOD SPECIMENOrdering Facility: [facility] Address: [address] [place] [address] Performed By: #### 5 7021-8 ####[facility]ORATORYCLIA [id number] [address] STATES [facility] Eosinophils/100 WBC (Bld) 2.5 % Normal [facility] Comment on above: Order Comment: Speci men Type: BLOOD SPECIMENOrdering Facility: [facility] Address: [address] [place] [address] Performed By: #### 5 7021-8 ####[facility]ORATORYCLIA [id number] [address] Erythrocyte distribution width (RBC) [Ratio] 17.1 % High 11.5-15.0 [facility] Comment on above: Order Comment: Speci men Type: BLOOD SPECIMENOrdering Facility: [facility] Address: [address] [place] [address] Performed By: #### 5 7021-8 ####[facility]ORATORYCLIA [id number] [address] Hematocrit (Bld) [Volume fraction] 29.2 % Low 39.0-51.0 [facility] Comment on above: Order Comment: Speci men Type: BLOOD SPECIMENOrdering Facility: [facility] Address: [address] [place] [address] Performed By: #### 5 7021-8 ####[facility]ORATORYCLIA [id number] [address] [place] Hemoglobin (Bld) [Mass/Vol] 9.0 g/dL Low 13.0-17.0 [facility] Comment on above: Order Comment: Speci men Type: BLOOD SPECIMENOrdering Facility: [facility] Address: [address] [place] [address] Performed By: #### 5 7021-8 ####[facility]ORATORYCLIA [id number] [address] IMMATURE GRAN % 0.3 % Normal [facility] Comment on above: Order Comment: Speci men Type: BLOOD SPECIMENOrdering Facility: [facility] Address: [address] [place] [address] Performed By: #### 5 7021-8 ####[facility]ORATORYCLIA [id number] [address] IMMATURE GRAN ABS <0.03 Normal <0.10 [facility] Comment on above: Order Comment: Speci men Type: BLOOD SPECIMENOrdering Facility: [facility] Address: [address] [place] [address] Performed By: #### 5 7021-8 ####[facility]ORATORYCLIA [id number] [address] Lymphocytes (Bld) [#/Vol] 1.41 10*3/uL Normal 1.00-4.00 [facility] Comment on above: Order Comment: Speci men Type: BLOOD SPECIMENOrdering Facility: [facility] Address: [address] [place] [address] Performed By: #### 5 7021-8 ####[facility]ORATORYCLIA [id number] [address] Lymphocytes/100 WBC (Bld) 18.4 % Normal [facility] Comment on above: Order Comment: Speci men Type: BLOOD SPECIMENOrdering Facility: [facility] Address: [address] [place] [address] Performed By: #### 5 7021-8 ####[facility]ORATORYCLIA [id number] [address] MCH (RBC) [Entitic mass] 28.0 pg Normal 26.0-34.0 [facility] Comment on above: Order Comment: Speci men Type: BLOOD SPECIMENOrdering Facility: [facility] Address: [address] [place] [address] Performed By: #### 5 7021-8 ####[facility]ORATORYCLIA [id number] [address] MCHC (RBC) [Mass/Vol] 30.8 g/dL Normal 30.5-36.0 [facility] Comment on above: Order Comment: Speci men Type: BLOOD SPECIMENOrdering Facility: [facility] Address: [address] [place] [address] Performed By: #### 5 7021-8 ####[facility]ORATORYCLIA [id number] [address] [place] MCV (RBC) [Entitic vol] 91.0 fL Normal 80.0-100.0 [facility] Comment on above: Order Comment: Speci men Type: BLOOD SPECIMENOrdering Facility: [facility] Address: [address] [place] [address] Performed By: #### 5 7021-8 ####[facility]ORATORYCLIA [id number] [address] [place] Monocytes (Bld) [#/Vol] 0.47 10*3/uL Normal <0.87 [facility] Comment on above: Order Comment: Speci men Type: BLOOD SPECIMENOrdering Facility: [facility] Address: [address] [place] [address] Performed By: #### 5 7021-8 ####[facility]ORATORYCLIA [id number] [address] Monocytes/100 WBC (Bld) 6.1 % Normal [facility] Comment on above: Order Comment: Speci men Type: BLOOD SPECIMENOrdering Facility: [facility] Address: [address] [place] [address] Performed By: #### 5 7021-8 ####[facility]ORATORYCLIA [id number] [address] [place] Neutrophils (Bld) [#/Vol] 5.55 10*3/uL Normal 1.45-7.50 [facility] Comment on above: Order Comment: Speci men Type: BLOOD SPECIMENOrdering Facility: [facility] Address: [address] [place] [address] Performed By: #### 5 7021-8 ####[facility]ORATORYCLIA [id number] [address] Neutrophils/100 WBC (Bld) 72.3 % Normal [facility] Comment on above: Order Comment: Speci men Type: BLOOD SPECIMENOrdering Facility: [facility] Address: [address] [place] [address] Performed By: #### 5 7021-8 ####[facility]ORATORYCLIA [id number] [address] [place] Nucleated RBC (Bld) [#/Vol] 10*3/uL Normal <0.01 [facility] Comment on above: Order Comment: Speci men Type: BLOOD SPECIMENOrdering Facility: [facility] Address: [address] [place] [address] Performed By: #### 5 7021-8 ####[facility]ORATORYCLIA [id number] [address] Nucleated RBC/100 WBC (Bld) [Ratio] 0.0 /100 WBC Normal [facility] Comment on above: Order Comment: Speci men Type: BLOOD SPECIMENOrdering Facility: [facility] Address: [address] [place] [address] Performed By: #### 5 7021-8 ####[facility]ORATORYCLIA [id number] [address] [place] Platelet mean volume (Bld) [Entitic vol] 9.3 fL Normal 9.0-12.7 [facility] Comment on above: Order Comment: Speci men Type: BLOOD SPECIMENOrdering Facility: [facility] Address: [address] [place] [address] Performed By: #### 5 7021-8 ####[facility]ORATORYCLIA [id number] [address] Platelets (Bld) [#/Vol] 319 10*3/uL Normal 150-400 [facility] Comment on above: Order Comment: Speci men Type: BLOOD SPECIMENOrdering Facility: [facility] Address: [address] [place] [address] Performed By: #### 5 7021-8 ####[facility]ORATORYCLIA [id number] [address] STATES OF [facility] RBC (Bld) [#/Vol] 3.21 10*6/uL Low 4.20-6.00 [facility] Comment on above: Order Comment: Speci men Type: BLOOD SPECIMENOrdering Facility: [facility] Address: [address] [place] [address] Performed By: #### 5 7021-8 ####[facility]ORATORYCLIA [id number] [address] OF [facility] WBC (Bld) [#/Vol] 7.67 10*3/uL Normal 3.70-11.00 [facility] Comment on above: Order Comment: Speci men Type: BLOOD SPECIMENOrdering Facility: [facility] Address: [address] [place] [address] Performed By: #### 5 7021-8 ####[facility]ORATORYCLIA [id number] [address] STATES [facility] Basophils (Bld) [#/Vol] 0.04 10*3/uL Normal <0.11 [facility] Comment on above: Order Comment: Speci men Type: BLOOD SPECIMENOrdering Facility: [facility] Address: [address] [place] [address] Performed By: #### 5 7021-8 ####[facility]ORATORYCLIA [id number] [address] Basophils/100 WBC (Bld) 0.5 % Normal [facility] Comment on above: Order Comment: Speci men Type: BLOOD SPECIMENOrdering Facility: [facility] Address: [address] [place] [address] Performed By: #### 5 7021-8 ####[facility]ORATORYCLIA [id number] [address] Differential cell count method Nom (Bld) Auto Normal [facility] Comment on above: Order Comment: Speci men Type: BLOOD SPECIMENOrdering Facility: [facility] Address: [address] [place] [address] Performed By: #### 5 7021-8 ####[facility]ORATORYCLIA [id number] [address] [place] Eosinophils (Bld) [#/Vol] 0.19 10*3/uL Normal <0.46 [facility] Comment on above: Order Comment: Speci men Type: BLOOD SPECIMENOrdering Facility: [facility] Address: [address] [place] [address] Performed By: #### 5 7021-8 ####[facility]ORATORYCLIA [id number] [address] [place] Eosinophils/100 WBC (Bld) 2.5 % Normal [facility] Comment on above: Order Comment: Speci men Type: BLOOD SPECIMENOrdering Facility: [facility] Address: [address] [place] [address] Performed By: #### 5 7021-8 ####[facility]ORATORYCLIA [id number] [address] [place] Erythrocyte distribution width (RBC) [Ratio] 17.2 % High 11.5-15.0 [facility] Comment on above: Order Comment: Speci men Type: BLOOD SPECIMENOrdering Facility: [facility] Address: [address] [place] [address] Performed By: #### 5 7021-8 ####[facility]ORATORYCLIA [id number] [address] [place] Hematocrit (Bld) [Volume fraction] 29.5 % Low 39.0-51.0 [facility] Comment on above: Order Comment: Speci men Type: BLOOD SPECIMENOrdering Facility: [facility] Address: [address] [place] [address] Performed By: #### 5 7021-8 ####[facility]ORATORYCLIA [id number] [address] OF [facility] Hemoglobin (Bld) [Mass/Vol] 9.2 g/dL Low 13.0-17.0 [facility] Comment on above: Order Comment: Speci men Type: BLOOD SPECIMENOrdering Facility: [facility] Address: [address] [place] [address] Performed By: #### 5 7021-8 ####[facility]ORATORYCLIA [id number] [address] IMMATURE GRAN % 0.4 % Normal [facility] Comment on above: Order Comment: Speci men Type: BLOOD SPECIMENOrdering Facility: [facility] Address: [address] [place] [address] Performed By: #### 5 7021-8 ####[facility]ORATORYCLIA [id number] [address] IMMATURE GRAN ABS 0.03 k/uL Normal <0.10 [facility] Comment on above: Order Comment: Speci men Type: BLOOD SPECIMENOrdering Facility: [facility] Address: [address] [place] [address] Performed By: #### 5 7021-8 ####[facility]ORATORYCLIA [id number] [address] [place] Lymphocytes (Bld) [#/Vol] 1.50 10*3/uL Normal 1.00-4.00 [facility] Comment on above: Order Comment: Speci men Type: BLOOD SPECIMENOrdering Facility: [facility] Address: [address] [place] [address] Performed By: #### 5 7021-8 ####[facility]ORATORYCLIA [id number] [address] Lymphocytes/100 WBC (Bld) 19.7 % Normal [facility] Comment on above: Order Comment: Speci men Type: BLOOD SPECIMENOrdering Facility: [facility] Address: [address] [place] [address] Performed By: #### 5 7021-8 ####[facility]ORATORYCLIA [id number] [address] MCH (RBC) [Entitic mass] 28.3 pg Normal 26.0-34.0 [facility] Comment on above: Order Comment: Speci men Type: BLOOD SPECIMENOrdering Facility: [facility] Address: [address] [place] [address] Performed By: #### 5 7021-8 ####[facility]ORATORYCLIA [id number] [address] MCHC (RBC) [Mass/Vol] 31.2 g/dL Normal 30.5-36.0 [facility] Comment on above: Order Comment: Speci men Type: BLOOD SPECIMENOrdering Facility: [facility] Address: [address] [place] [address] Performed By: #### 5 7021-8 ####[facility]ORATORYCLIA [id number] [address] MCV (RBC) [Entitic vol] 90.8 fL Normal 80.0-100.0 [facility] Comment on above: Order Comment: Speci men Type: BLOOD SPECIMENOrdering Facility: [facility] Address: [address] [place] [address] Performed By: #### 5 7021-8 ####[facility]ORATORYCLIA [id number] [address] Monocytes (Bld) [#/Vol] 0.49 10*3/uL Normal <0.87 [facility] Comment on above: Order Comment: Speci men Type: BLOOD SPECIMENOrdering Facility: [facility] Address: [address] [place] [address] Performed By: #### 5 7021-8 ####[facility]ORATORYCLIA [id number] [address] Monocytes/100 WBC (Bld) 6.4 % Normal [facility] Comment on above: Order Comment: Speci men Type: BLOOD SPECIMENOrdering Facility: [facility] Address: [address] [place] [address] Performed By: #### 5 7021-8 ####[facility]ORATORYCLIA [id number] [address] [place] Neutrophils (Bld) [#/Vol] 5.38 10*3/uL Normal 1.45-7.50 [facility] Comment on above: Order Comment: Speci men Type: BLOOD SPECIMENOrdering Facility: [facility] Address: [address] [place] [address] Performed By: #### 5 7021-8 ####[facility]ORATORYCLIA [id number] [address] Neutrophils/100 WBC (Bld) 70.5 % Normal [facility] Comment on above: Order Comment: Speci men Type: BLOOD SPECIMENOrdering Facility: [facility] Address: [address] [place] [address] Performed By: #### 5 7021-8 ####[facility] LABORATORYCLIA [id number] [address] Nucleated RBC (Bld) [#/Vol] 10*3/uL Normal <0.01 [facility] Comment on above: Order Comment: Speci men Type: BLOOD SPECIMENOrdering Facility: [facility] Address: [address] [address] Performed By: #### 5 7021-8 ####[facility] LABORATORYCLIA [id number] [address] Nucleated RBC/100 WBC (Bld) [Ratio] 0.0 /100 WBC Normal [facility] Comment on above: Order Comment: Speci men Type: BLOOD SPECIMENOrdering Facility: [facility] Address: [address] [place] [address] Performed By: #### 5 7021-8 ####[facility] LABORATORYCLIA [id number] [place] [address] [place] Platelet mean volume (Bld) [Entitic vol] 9.0 fL Normal 9.0-12.7 [facility] Comment on above: Order Comment: Speci men Type: BLOOD SPECIMENOrdering Facility: [facility] Address: [address] [place] [address] Performed By: #### 5 7021-8 ####[facility] LABORATORYCLIA [id number] [place] [address] [place] Platelets (Bld) [#/Vol] 316 10*3/uL Normal 150-400 [facility] Comment on above: Order Comment: Speci men Type: BLOOD SPECIMENOrdering Facility: [facility] Address: [address] [place] [address] Performed By: #### 5 7021-8 ####[facility]ORATORYCLIA [id number] [place] [address] [place] RBC (Bld) [#/Vol] 3.25 10*6/uL Low 4.20-6.00 [facility] Comment on above: Order Comment: Speci men Type: BLOOD SPECIMENOrdering Facility: [facility] Address: [address] [place] [address] Performed By: #### 5 7021-8 ####[facility] LABORATORYCLIA [id number] [address] [place] WBC (Bld) [#/Vol] 7.63 10*3/uL Normal 3.70-11.00 [facility] Comment on above: Order Comment: Speci men Type: BLOOD SPECIMENOrdering Facility: [facility] Address: [address] [place] [address] Performed By: #### 5 7021-8 ####[facility] LABORATORYCLIA [id number] [address] [place] Basophils (Bld) [#/Vol] Normal <0.11 [facility] Comment on above: Order Comment: Speci men Type: BLOOD SPECIMENOrdering Facility: [facility] Address: [address] [place] [address] Result Comment: Carolina Owens RN informed lab after results autoverified that she rd on the wrong patient. Lab to credit. Nurse to redraw on correct patient.Corrected result: Previously reported as 0.04 k/uL on 08/16/2021 at 4:44 AM EDT. Performed By: #### 5 7021-8 ####[facility]ORATORYCLIA [id number] [address] STATES [facility] Basophils/100 WBC (Bld) Normal [facility] Comment on above: Order Comment: Speci men Type: BLOOD SPECIMENOrdering Facility: [facility] Address: [address] [place] [address] Result Comment: Tati ected result: Previously reported as 0.4 % on 08/16/2021 at 4:44 AM EDT. Performed By: #### 5 7021-8 ####[facility] LABORATORYCLIA [id number] [address] CBC W Differential panel, method unspecified (Bld) Normal [facility] Comment on above: Order Comment: Speci men Type: BLOOD SPECIMENOrdering Facility: [facility] Address: [address] [place] [address] Result Comment: Carolina Owens RN informed lab after results autoverified that she rd on the wrong patient. Lab to credit. Nurse to redraw on correct patient. Performed By: #### 5 7021-8 ####[facility]ORATORYCLIA [id number] [address] Differential cell count method Nom (Bld) Normal [facility] Comment on above: Order Comment: Speci men Type: BLOOD SPECIMENOrdering Facility: [facility] Address: [address] [place] [address] Result Comment: Carolina Owens RN informed lab after results autoverified that she rd on the wrong patient. Lab to credit. Nurse to redraw on correct patient.Corrected result: Previously reported as Auto on 08/16/2021 at 4:44 AM EDT. Performed By: #### 5 7021-8 ####[facility]ORATORYCLIA [id number] [address] [place] Eosinophils (Bld) [#/Vol] Normal <0.46 [facility] Comment on above: Order Comment: Speci men Type: BLOOD SPECIMENOrdering Facility: [facility] Address: [address] [place] [address] Result Comment: Carolina Owens RN informed lab after results autoverified that she rd on the wrong patient. Lab to credit. Nurse to redraw on correct patient.Corrected result: Previously reported as 0.07 k/uL on 08/16/2021 at 4:44 AM EDT. Performed By: #### 5 7021-8 ####[facility]ORATORYCLIA [id number] [address] Eosinophils/100 WBC (Bld) Normal [facility] Comment on above: Order Comment: Speci [facility] Type: BLOOD SPECIMENOrdering Facility: [facility] Address: [address] [place] [address] Result Comment: Carolina Owens RN informed lab after results autoverified that she rd on the wrong patient. Lab to credit. Nurse to redraw on correct patient.Corrected result: Previously reported as 0.7 % on 08/16/2021 at 4:44 AM EDT. Performed By: #### 5 7021-8 ####[facility]ORATORYCLIA [id number] [address] [place] Erythrocyte distribution width (RBC) [Ratio] Normal 11.5-15.0 [facility] Comment on above: Order Comment: Speci [facility] Type: BLOOD SPECIMENOrdering Facility: [facility] Address: [address] [place] [address] Result Comment: Carolina Owens RN informed lab after results autoverified that she rd on the wrong patient. Lab to credit. Nurse to redraw on correct patient.Corrected result: Previously reported as 14.2 % on 08/16/2021 at 4:44 AM EDT. Performed By: #### 5 7021-8 ####[facility] LABORATORYCLIA [id number] [address] Hematocrit (Bld) [Volume fraction] Normal 39.0-51.0 [facility] Comment on above: Order Comment: Speci men Type: BLOOD SPECIMENOrdering Facility: [facility] Address: [address] [place] [address] Result Comment: Carolina Owens RN informed lab after results autoverified that she rd on the wrong patient. Lab to credit. Nurse to redraw on correct patient.Corrected result: Previously reported as 34.3 % on 08/16/2021 at 4:44 AM EDT. Performed By: #### 5 7021-8 ####[facility]ORATORYCLIA [id number] [address] Hemoglobin (Bld) [Mass/Vol] Normal 13.0-17.0 [facility] Comment on above: Order Comment: Speci men Type: BLOOD SPECIMENOrdering Facility: [facility] Address: [address] [place] [address] Result Comment: Carolina Owens RN informed lab after results autoverified that she rd on the wrong patient. Lab to credit. Nurse to redraw on correct patient.Corrected result: Previously reported as 11.2 g/dL on 08/16/2021 at 4:44 AM EDT. Performed By: #### 5 7021-8 ####[facility]ORATORYCLIA [id number] [address] IMMATURE GRAN % Normal [facility] Comment on above: Order Comment: Speci men Type: BLOOD SPECIMENOrdering Facility: [facility] Address: [address] [place] [address] Result Comment: Carolina Owens RN informed lab after results autoverified that she rd on the wrong patient. Lab to credit. Nurse to redraw on correct patient.Corrected result: Previously reported as 0.8 % on 08/16/2021 at 4:44 AM EDT. Performed By: #### 5 7021-8 ####[facility]ORATORYCLIA [id number] [address] STATES OF [facility] IMMATURE GRAN ABS Normal <0.10 [facility] Comment on above: Order Comment: Speci men Type: BLOOD SPECIMENOrdering Facility: [facility] Address: [address] [place] [address] Result Comment: Tati ected result: Previously reported as 0.08 k/uL on 08/16/2021 at 4:44 AM EDT. Performed By: #### 5 7021-8 ####[facility]ORATORYCLIA [id number] [address] Lymphocytes (Bld) [#/Vol] Normal 1.00-4.00 [facility] Comment on above: Order Comment: Speci men Type: BLOOD SPECIMENOrdering Facility: [facility] Address: [address] [place] [address] Result Comment: Carolina Owens RN informed lab after results autoverified that she rd on the wrong patient. Lab to credit. Nurse to redraw on correct patient.Corrected result: Previously reported as 1.17 k/uL on 08/16/2021 at 4:44 AM EDT. Performed By: #### 5 7021-8 ####[facility]ORATORYCLIA [id number] [address] Lymphocytes/100 WBC (Bld) Normal [facility] Comment on above: Order Comment: Speci men Type: BLOOD SPECIMENOrdering Facility: [facility] Address: [address] [place] [address] Result Comment: Carolina Owens RN informed lab after results autoverified that she rd on the wrong patient. Lab to credit. Nurse to redraw on correct patient.Corrected result: Previously reported as 12.0 % on 08/16/2021 at 4:44 AM EDT. Performed By: #### 5 7021-8 ####[facility]ORATORYCLIA [id number] [address] [place] MCHC (RBC) [Mass/Vol] Normal 30.5-36.0 [facility] Comment on above: Order Comment: Speci men Type: BLOOD SPECIMENOrdering Facility: [facility] Address: [address] [place] [address] Result Comment: Carolina Owens RN informed lab after results autoverified that she rd on the wrong patient. Lab to credit. Nurse to redraw on correct patient.Corrected result: Previously reported as 32.7 g/dL on 08/16/2021 at 4:44 AM EDT. Performed By: #### 5 7021-8 ####[facility]ORATORYCLIA [id number] [address] [place] MCV (RBC) [Entitic vol] Normal 80.0-100.0 [facility] Comment on above: Order Comment: Speci men Type: BLOOD SPECIMENOrdering Facility: [facility] Address: [address] [place] [address] Result Comment: Carolina Owens RN informed lab after results autoverified that she rd on the wrong patient. Lab to credit. Nurse to redraw on correct patient.Corrected result: Previously reported as 94.2 fL on 08/16/2021 at 4:44 AM EDT. Performed By: #### 5 7021-8 ####[facility]ORATORYCLIA [id number] [address] OF [facility] Monocytes (Bld) [#/Vol] Normal <0.87 [facility] Comment on above: Order Comment: Speci men Type: BLOOD SPECIMENOrdering Facility: [facility] Address: [address] [place] [address] Result Comment: Carolina Owens RN informed lab after results autoverified that she rd on the wrong patient. Lab to credit. Nurse to redraw on correct patient.Corrected result: Previously reported as 0.99 k/uL on 08/16/2021 at 4:44 AM EDT. Performed By: #### 5 7021-8 ####[facility]ORATORYCLIA [id number] [address] [place] Monocytes/100 WBC (Bld) Normal [facility] Comment on above: Order Comment: Speci men Type: BLOOD SPECIMENOrdering Facility: [facility] Address: [address] [place] [address] Result Comment: Carolina Owens RN informed lab after results autoverified that she rd on the wrong patient. Lab to credit. Nurse to redraw on correct patient.Corrected result: Previously reported as 10.2 % on 08/16/2021 at 4:44 AM EDT. Performed By: #### 5 7021-8 ####[facility]ORATORYCLIA [id number] [address] [place] Neutrophils (Bld) [#/Vol] Normal 1.45-7.50 [facility] Comment on above: Order Comment: Speci men Type: BLOOD SPECIMENOrdering Facility: [facility] Address: [address] [place] [address] Result Comment: Carolina Owens RN informed lab after results autoverified that she rd on the wrong patient. Lab to credit. Nurse to redraw on correct patient.Corrected result: Previously reported as 7.40 k/uL on 08/16/2021 at 4:44 AM EDT. Performed By: #### 5 7021-8 ####[facility]ORATORYCLIA [id number] [address] STATES OF [facility] Neutrophils/100 WBC (Bld) Normal [facility] Comment on above: Order Comment: Speci men Type: BLOOD SPECIMENOrdering Facility: [facility] Address: [address] [place] [address] Result Comment: Carolina Owens RN informed lab after results autoverified that she rd on the wrong patient. Lab to credit. Nurse to redraw on correct patient.Corrected result: Previously reported as 75.9 % on 08/16/2021 at 4:44 AM EDT. Performed By: #### 5 7021-8 ####[facility]ORATORYCLIA [id number] [place] [address] [place] Platelet mean volume (Bld) [Entitic vol] Normal 9.0-12.7 [facility] Comment on above: Order Comment: Speci men Type: BLOOD SPECIMENOrdering Facility: [facility] Address: [address] [place] [address] Result Comment: Carolina Owens RN informed lab after results autoverified that she rd on the wrong patient. Lab to credit. Nurse to redraw on correct patient.Corrected result: Previously reported as 9.1 fL on 08/16/2021 at 4:44 AM EDT. Performed By: #### 5 7021-8 ####[facility]ORATORYCLIA [id number] [place] [address] [place] Platelets (Bld) [#/Vol] Normal 150-400 [facility] Comment on above: Order Comment: Shira feldman Type: BLOOD SPECIMENOrdering Facility: [facility] Address: [address] [place] [address] Result Comment: Carolina Owens RN informed lab after results autoverified that she rd on the wrong patient. Lab to credit. Nurse to redraw on correct patient.Corrected result: Previously reported as 338 k/uL on 08/16/2021 at 4:44 AM EDT. Performed By: #### 5 7021-8 ####[facility]ORATORYCLIA [id number] [address] [place] RBC (Bld) [#/Vol] Normal 4.20-6.00 [facility] Comment on above: Order Comment: Shira feldman Type: BLOOD SPECIMENOrdering Facility: [facility] Address: [address] [place] [address] Result Comment: Carolina Owens RN informed lab after results autoverified that she rd on the wrong patient. Lab to credit. Nurse to redraw on correct patient.Corrected result: Previously reported as 3.64 m/uL on 08/16/2021 at 4:44 AM EDT. Performed By: #### 5 7021-8 ####[facility]ORATORYCLIA [id number] [address] [place] WBC (Bld) [#/Vol] Normal 3.70-11.00 [facility] Comment on above: Order Comment: Speci men Type: BLOOD SPECIMENOrdering Facility: [facility] Address: [address] [place] [address] Result Comment: Carolina Owens RN informed lab after results autoverified that she rd on the wrong patient. Lab to credit. Nurse to redraw on correct patient.Corrected result: Previously reported as 9.75 k/uL on 08/16/2021 at 4:44 AM EDT. Performed By: #### 5 7021-8 ####[facility]ORATORYCLIA [id number] [address] CONSULT PROGon 08-16-2021 CONSULT PROG [facility] Magnesium SerPl-mCncon 08-16 Magnesium [Mass/Vol] 1.8 mg/dL Normal 1.7-2.3 [facility] Comment on above: Order Comment: Speci men Type: BLOOD SPECIMENOrdering Facility: [facility] Address: [address] [place] [address] Performed By: #### 2 4321-2, 45993-1 ####[facility]ORATORYCLIA [id number] [address] NURSING PROGon 08-16-2021 NURSING PROG Normal [facility] Basic metabolic 2000 panelon 08-15-2021 Anion gap [Moles/Vol] 13 mmol/L Normal 9-18 [facility] Comment on above: Order Comment: Speci men Type: BLOOD SPECIMENOrdering Facility: [facility] Address: [address] [place] [address] Performed By: #### 2 4321-2 ####[facility]ORATORYCLIA [id number] [address] STATES [place] [facility] Calcium [Mass/Vol] 9.0 mg/dL Normal 8.5-10.2 [facility] Comment on above: Order Comment: Speci men Type: BLOOD SPECIMENOrdering Facility: [facility] Address: [address] [place] [address] Performed By: #### 2 4321-2 ####[facility]ORATORYCLIA [id number] [address] OF [facility] Chloride [Moles/Vol] 95 mmol/L Low 97-105 [facility] Comment on above: Order Comment: Speci men Type: BLOOD SPECIMENOrdering Facility: [facility] Address: [address] [place] [address] Performed By: #### 2 4321-2 ####[facility]ORATORYCLIA [id number] [address] CO2 [Moles/Vol] 28 mmol/L Normal 22-30 [facility] Comment on above: Order Comment: Speci men Type: BLOOD SPECIMENOrdering Facility: [facility] Address: [address] [place] [address] Performed By: #### 2 4321-2 ####[facility]ORATORYCLIA [id number] [address] Creatinine [Mass/Vol] 0.50 mg/dL Low 0.73-1.22 [facility] Comment on above: Order Comment: Speci men Type: BLOOD SPECIMENOrdering Facility: [facility] Address: [address] [place] [address] Performed By: #### 2 4321-2 ####[facility]ORATORYCLIA [id number] [address] ESTIMATED GLOMERULAR FILTRATION RATE 110 mL/min/1.73m??? Normal >=60 [facility] Comment on above: Order Comment: Speci men Type: BLOOD SPECIMENOrdering Facility: [facility] Address: [address] [place] [address] Result Comment: Luzmaria mated Glomerular Filtration Rate [...] #### 2 4321-2 ####[facility] LABORATORYCLIA [id number] [place] [address] [place] Glucose [Mass/Vol] 106 mg/dL High 74-99 [facility] Comment on above: Order Comment: Speci men Type: BLOOD SPECIMENOrdering Facility: [facility] Address: [address] [place] [address] Result Comment: The [place] [employer] (ADA) provides guidance for cutoff [...] Standards of Medical Care in Diabetes 2016, [employer] [place] [employer]. Diabetes Care. 2016.39(Suppl 1). Performed By: #### 2 4321-2 ####[facility]ORATORYCLIA [id number] [place] [address] [place] Potassium [Moles/Vol] 3.3 mmol/L Low 3.7-5.1 [facility] Comment on above: Order Comment: Johni men Type: BLOOD SPECIMENOrdering Facility: [facility] Address: [address] [place] [address] Performed By: #### 2 4321-2 ####[facility]ORATORYCLIA [id number] [place] [address] [place] Sodium [Moles/Vol] 136 mmol/L Normal 136-144 [facility] Comment on above: Order Comment: Speci men Type: BLOOD SPECIMENOrdering Facility: [facility] Address: [address] [place] [address] Performed By: #### 2 4321-2 ####[facility]ORATORYCLIA [id number] [place] [address] [place] Urea nitrogen [Mass/Vol] 11 mg/dL Normal 9-24 [facility] Comment on above: Order Comment: Speci men Type: BLOOD SPECIMENOrdering Facility: [facility] Address: [address] [place] [address] Performed By: #### 2 4321-2 ####[facility]ORATORYCLIA [id number] [address] [place] CASE MANAGEMon 08-15-2021 CASE MANAGEM Normal [facility] CBC W Auto Differential pane l (Bld)on 08-15-2021 Basophils (Bld) [#/Vol] 0.03 10*3/uL Normal <0.11 [facility] Comment on above: Order Comment: Speci men Type: BLOOD SPECIMENOrdering Facility: [facility] Address: [address] [place] [address] Performed By: #### 5 7021-8 ####[facility]ORATORYCLIA [id number] [address] [place] Basophils/100 WBC (Bld) 0.4 % Normal [facility] Comment on above: Order Comment: Speci men Type: BLOOD SPECIMENOrdering Facility: [facility] Address: [address] [place] [address] Performed By: #### 5 7021-8 ####[facility]ORATORYCLIA [id number] [address] [place] Differential cell count method Nom (Bld) Auto Normal [facility] Comment on above: Order Comment: Speci men Type: BLOOD SPECIMENOrdering Facility: [facility] Address: [address] [place] [address] Performed By: #### 5 7021-8 ####[facility]ORATORYCLIA [id number] [place] [address] [place] Eosinophils (Bld) [#/Vol] 0.20 10*3/uL Normal <0.46 [facility] Comment on above: Order Comment: Speci men Type: BLOOD SPECIMENOrdering Facility: [facility] Address: [address] [place] [address] Performed By: #### 5 7021-8 ####[facility]ORATORYCLIA [id number] [address] Eosinophils/100 WBC (Bld) 2.5 % Normal [facility] Comment on above: Order Comment: Speci men Type: BLOOD SPECIMENOrdering Facility: [facility] Address: [address] [place] [address] Performed By: #### 5 7021-8 ####[facility]ORATORYCLIA [id number] [address] [place] Erythrocyte distribution width (RBC) [Ratio] 16.7 % High 11.5-15.0 [facility] Comment on above: Order Comment: Speci men Type: BLOOD SPECIMENOrdering Facility: [facility] Address: [address] [place] [address] Performed By: #### 5 7021-8 ####[facility]ORATORYCLIA [id number] [address] Hematocrit (Bld) [Volume fraction] 30.3 % Low 39.0-51.0 [facility] Comment on above: Order Comment: Speci men Type: BLOOD SPECIMENOrdering Facility: [facility] Address: [address] [place] [address] Performed By: #### 5 7021-8 ####[facility]ORATORYCLIA [id number] [address] [place] Hemoglobin (Bld) [Mass/Vol] 9.4 g/dL Low 13.0-17.0 [facility] Comment on above: Order Comment: Speci men Type: BLOOD SPECIMENOrdering Facility: [facility] Address: [address] [place] [address] Performed By: #### 5 7021-8 ####[facility]ORATORYCLIA [id number] [address] [place] IMMATURE GRAN % 0.4 % Normal [facility] Comment on above: Order Comment: Speci men Type: BLOOD SPECIMENOrdering Facility: [facility] Address: [address] [place] [address] Performed By: #### 5 7021-8 ####[facility]ORATORYCLIA [id number] [address] IMMATURE GRAN ABS 0.03 k/uL Normal <0.10 [facility] Comment on above: Order Comment: Speci men Type: BLOOD SPECIMENOrdering Facility: [facility] Address: [address] [place] [address] Performed By: #### 5 7021-8 ####[facility]ORATORYCLIA [id number] [address] Lymphocytes (Bld) [#/Vol] 1.50 10*3/uL Normal 1.00-4.00 [facility] Comment on above: Order Comment: Speci men Type: BLOOD SPECIMENOrdering Facility: [facility] Address: [address] [place] [address] Performed By: #### 5 7021-8 ####[facility]ORATORYCLIA [id number] [address] Lymphocytes/100 WBC (Bld) 18.5 % Normal [facility] [facility] Comment on above: Order Comment: Speci men Type: BLOOD SPECIMENOrdering Facility: [facility] Address: [address] [place] [address] Performed By: #### 5 7021-8 ####[facility] LABORATORYCLIA [id number] [address] MCH (RBC) [Entitic mass] 29.0 pg Normal 26.0-34.0 [facility] Comment on above: Order Comment: Speci men Type: BLOOD SPECIMENOrdering Facility: [facility] Address: [address] [place] [address] Performed By: #### 5 7021-8 ####[facility]ORATORYCLIA [id number] [place] [address] [place] MCHC (RBC) [Mass/Vol] 31.0 g/dL Normal 30.5-36.0 [facility] Comment on above: Order Comment: Speci men Type: BLOOD SPECIMENOrdering Facility: [facility] Address: [address] [place] [address] Performed By: #### 5 7021-8 ####[facility]ORATORYCLIA [id number] [place] [address] [place] MCV (RBC) [Entitic vol] 93.5 fL Normal 80.0-100.0 [facility] Comment on above: Order Comment: Speci men Type: BLOOD SPECIMENOrdering Facility: [facility] Address: [address] [place] [address] Performed By: #### 5 7021-8 ####[facility]ORATORYCLIA [id number] [address] [place] Monocytes (Bld) [#/Vol] 0.47 10*3/uL Normal <0.87 [facility] Comment on above: Order Comment: Speci men Type: BLOOD SPECIMENOrdering Facility: [facility] Address: [address] [place] [address] Performed By: #### 5 7021-8 ####[facility]ORATORYCLIA [id number] [address] STATES [facility] Monocytes/100 WBC (Bld) 5.8 % Normal [facility] Comment on above: Order Comment: Speci men Type: BLOOD SPECIMENOrdering Facility: [facility] Address: [address] [place] [address] Performed By: #### 5 7021-8 ####[facility]ORATORYCLIA [id number] [place] [address] [place] Neutrophils (Bld) [#/Vol] 5.87 10*3/uL Normal 1.45-7.50 [facility] Comment on above: Order Comment: Speci men Type: BLOOD SPECIMENOrdering Facility: [facility] Address: [address] [place] [address] Performed By: #### 5 7021-8 ####[facility]ORATORYCLIA [id number] [address] Neutrophils/100 WBC (Bld) 72.4 % Normal [facility] Comment on above: Order Comment: Speci men Type: BLOOD SPECIMENOrdering Facility: [facility] Address: [address] [place] [address] Performed By: #### 5 7021-8 ####[facility]ORATORYCLIA [id number] [address] [place] Nucleated RBC (Bld) [#/Vol] 10*3/uL Normal <0.01 [facility] Comment on above: Order Comment: Speci men Type: BLOOD SPECIMENOrdering Facility: [facility] Address: [address] [place] [address] Performed By: #### 5 7021-8 ####[facility]ORATORYCLIA [id number] [address] Nucleated RBC/100 WBC (Bld) [Ratio] 0.0 /100 WBC Normal [facility] Comment on above: Order Comment: Speci men Type: BLOOD SPECIMENOrdering Facility: [facility] Address: [address] [place] [address] Performed By: #### 5 7021-8 ####[facility]ORATORYCLIA [id number] [address] [place] Platelet mean volume (Bld) [Entitic vol] 9.4 fL Normal 9.0-12.7 [facility] Comment on above: Order Comment: Speci men Type: BLOOD SPECIMENOrdering Facility: [facility] Address: [address] [place] [address] Performed By: #### 5 7021-8 ####[facility]ORATORYCLIA [id number] [address] [place] Platelets (Bld) [#/Vol] 290 10*3/uL Normal 150-400 [facility] Comment on above: Order Comment: Speci men Type: BLOOD SPECIMENOrdering Facility: [facility] Address: [address] [place] [address] Performed By: #### 5 7021-8 ####[facility]ORATORYCLIA [id number] [address] OF [facility] RBC (Bld) [#/Vol] 3.24 10*6/uL Low 4.20-6.00 [facility] Comment on above: Order Comment: Speci men Type: BLOOD SPECIMENOrdering Facility: [facility] Address: [address] [place] [address] Performed By: #### 5 7021-8 ####[facility]ORATORYCLIA [id number] [address] STATES [facility] WBC (Bld) [#/Vol] 8.10 10*3/uL Normal 3.70-11.00 [facility] Comment on above: Order Comment: Speci men Type: BLOOD SPECIMENOrdering Facility: [facility] Address: [address] [place] [address] Performed By: #### 5 7021-8 ####[facility]ORATORYCLIA [id number] [address] [facility] THERAPY NTon 08-15-2021 THERAPY NT Normal [facility] THERAPY NT Normal [facility] THERAPY NT Normal [facility] Basic metabolic 2000 panelon 08-14-2021 Anion gap [Moles/Vol] 10 mmol/L Normal 9-18 [facility] Comment on above: Order Comment: Speci men Type: BLOOD SPECIMENOrdering Facility: [facility] Address: [address] [place] [address] Performed By: #### 2 4321-2 ####[facility]ORATORYCLIA [id number] [address] Calcium [Mass/Vol] 8.8 mg/dL Normal 8.5-10.2 [facility] Comment on above: Order Comment: Speci men Type: BLOOD SPECIMENOrdering Facility: [facility] Address: [address] [place] [address] Performed By: #### 2 4321-2 ####[facility]ORATORYCLIA [id number] [place] [address] [place] Chloride [Moles/Vol] 92 mmol/L Low 97-105 [facility] Comment on above: Order Comment: Speci men Type: BLOOD SPECIMENOrdering Facility: [facility] Address: [address] [place] [address] Performed By: #### 2 4321-2 ####[facility]ORATORYCLIA [id number] [place] [address] [place] CO2 [Moles/Vol] 29 mmol/L Normal 22-30 [facility] Comment on above: Order Comment: Speci men Type: BLOOD SPECIMENOrdering Facility: [facility] Address: [address] [place] [address] Performed By: #### 2 4321-2 ####[facility]ORATORYCLIA [id number] [address] STATES [facility] Creatinine [Mass/Vol] 0.49 mg/dL Low 0.73-1.22 [facility] Comment on above: Order Comment: Speci men Type: BLOOD SPECIMENOrdering Facility: [facility] Address: [address] [place] [address] Performed By: #### 2 4321-2 ####[facility]ORATORYCLIA [id number] [address] [facility] ESTIMATED GLOMERULAR FILTRATION RATE 111 mL/min/1.73m??? Normal >=60 [facility] Comment on above: Order Comment: Speci men Type: BLOOD SPECIMENOrdering Facility: [facility] Address: [address] [place] [address] Result Comment: Luzmaria mated Glomerular Filtration Rate [...] #### 2 4321-2 ####[facility]ORATORYCLIA [id number] [place] [address] [place] Glucose [Mass/Vol] 104 mg/dL High 74-99 [facility] Comment on above: Order Comment: Shira feldman Type: BLOOD SPECIMENOrdering Facility: [facility] Address: [address] [place] [address] Result Comment: The [employer] [place] [employer] (ADA) provides guidance for cutoff [...] Standards of Medical Care in Diabetes 2016, [employer] [place] [employer]. Diabetes Care. 2016.39(Suppl 1). Performed By: #### 2 4321-2 ####[facility]ORATORYCLIA [id number] [place] [address] [place] Potassium [Moles/Vol] 3.1 mmol/L Low 3.7-5.1 [facility] Comment on above: Order Comment: Shira feldman Type: BLOOD SPECIMENOrdering Facility: [facility] Address: [address] [address] Performed By: #### 2 4321-2 ####[facility]ORATORYCLIA [id number] [place] [address] [place] Sodium [Moles/Vol] 131 mmol/L Low 136-144 [facility] Comment on above: Order Comment: Shira feldman Type: BLOOD SPECIMENOrdering Facility: [facility] Address: [address] [address] Performed By: #### 2 4321-2 ####[facility]ORATORYCLIA [id number] [address] [place] Urea nitrogen [Mass/Vol] 13 mg/dL Normal 9-24 [facility] Comment on above: Order Comment: Speci men Type: BLOOD SPECIMENOrdering Facility: [facility] Address: [address] [place] [address] Performed By: #### 2 4321-2 ####[facility]ORATORYCLIA [id number] [address] [place] CBC W Auto Differential pane l (Bld)on 08-14-2021 Basophils (Bld) [#/Vol] 10*3/uL Normal <0.11 [facility] Comment on above: Order Comment: Speci men Type: BLOOD SPECIMENOrdering Facility: [facility] Address: [address] [place] [address] Performed By: #### 5 7021-8 ####[facility]ORATORYCLIA [id number] [address] [place] Basophils/100 WBC (Bld) 0.2 % Normal [facility] Comment on above: Order Comment: Speci men Type: BLOOD SPECIMENOrdering Facility: [facility] Address: [address] [place] [address] Performed By: #### 5 7021-8 ####[facility]ORATORYCLIA [id number] [address] Differential cell count method Nom (Bld) Auto Normal [facility] Comment on above: Order Comment: Speci men Type: BLOOD SPECIMENOrdering Facility: [facility] Address: [address] [place] [address] Performed By: #### 5 7021-8 ####[facility]ORATORYCLIA [id number] [address] [place] Eosinophils (Bld) [#/Vol] 0.23 10*3/uL Normal <0.46 [facility] Comment on above: Order Comment: Speci men Type: BLOOD SPECIMENOrdering Facility: [facility] Address: [address] [place] [address] Performed By: #### 5 7021-8 ####[facility]ORATORYCLIA [id number] [address] Eosinophils/100 WBC (Bld) 2.7 % Normal [facility] Comment on above: Order Comment: Speci men Type: BLOOD SPECIMENOrdering Facility: [facility] Address: [address] [place] [address] Performed By: #### 5 7021-8 ####[facility]ORATORYCLIA [id number] [address] Erythrocyte distribution width (RBC) [Ratio] 16.6 % High 11.5-15.0 [facility] Comment on above: Order Comment: Speci men Type: BLOOD SPECIMENOrdering Facility: [facility] Address: [address] [place] [address] Performed By: #### 5 7021-8 ####[facility]ORATORYCLIA [id number] [address] Hematocrit (Bld) [Volume fraction] 28.6 % Low 39.0-51.0 [facility] Comment on above: Order Comment: Speci men Type: BLOOD SPECIMENOrdering Facility: [facility] Address: [address] [place] [address] Performed By: #### 5 7021-8 ####[facility]ORATORYCLIA [id number] [address] Hemoglobin (Bld) [Mass/Vol] 9.0 g/dL Low 13.0-17.0 [facility] Comment on above: Order Comment: Speci men Type: BLOOD SPECIMENOrdering Facility: [facility] Address: [address] [place] [address] Performed By: #### 5 7021-8 ####[facility]ORATORYCLIA [id number] [address] [place] IMMATURE GRAN % 0.2 % Normal [facility] Comment on above: Order Comment: Speci men Type: BLOOD SPECIMENOrdering Facility: [facility] Address: [address] [place] [address] Performed By: #### 5 7021-8 ####[facility]ORATORYCLIA [id number] [address] STATES [facility] IMMATURE GRAN ABS <0.03 Normal <0.10 [facility] Comment on above: Order Comment: Speci men Type: BLOOD SPECIMENOrdering Facility: [facility] Address: [address] [place] [address] Performed By: #### 5 7021-8 ####[facility]ORATORYCLIA [id number] [address] Lymphocytes (Bld) [#/Vol] 1.33 10*3/uL Normal 1.00-4.00 [facility] Comment on above: Order Comment: Speci men Type: BLOOD SPECIMENOrdering Facility: [facility] Address: [address] [place] [address] Performed By: #### 5 7021-8 ####[facility]ORATORYCLIA [id number] [address] Lymphocytes/100 WBC (Bld) 15.6 % Normal [facility] Comment on above: Order Comment: Speci men Type: BLOOD SPECIMENOrdering Facility: [facility] Address: [address] [place] [address] Performed By: #### 5 7021-8 ####[facility]ORATORYCLIA [id number] [address] STATES [facility] MCH (RBC) [Entitic mass] 29.0 pg Normal 26.0-34.0 [facility] Comment on above: Order Comment: Speci men Type: BLOOD SPECIMENOrdering Facility: [facility] Address: [address] [place] [address] Performed By: #### 5 7021-8 ####[facility]ORATORYCLIA [id number] [address] MCHC (RBC) [Mass/Vol] 31.5 g/dL Normal 30.5-36.0 [facility] Comment on above: Order Comment: Speci men Type: BLOOD SPECIMENOrdering Facility: [facility] Address: [address] [place] [address] Performed By: #### 5 7021-8 ####[facility]ORATORYCLIA [id number] [address] [place] MCV (RBC) [Entitic vol] 92.3 fL Normal 80.0-100.0 [facility] Comment on above: Order Comment: Speci men Type: BLOOD SPECIMENOrdering Facility: [facility] Address: [address] [place] [address] Performed By: #### 5 7021-8 ####[facility]ORATORYCLIA [id number] [address] [place] Monocytes (Bld) [#/Vol] 0.44 10*3/uL Normal <0.87 [facility] Comment on above: Order Comment: Speci men Type: BLOOD SPECIMENOrdering Facility: [facility] Address: [address] [place] [address] Performed By: #### 5 7021-8 ####[facility]ORATORYCLIA [id number] [address] Monocytes/100 WBC (Bld) 5.2 % Normal [facility] Comment on above: Order Comment: Speci men Type: BLOOD SPECIMENOrdering Facility: [facility] Address: [address] [place] [address] Performed By: #### 5 7021-8 ####[facility]ORATORYCLIA [id number] [address] [place] Neutrophils (Bld) [#/Vol] 6.46 10*3/uL Normal 1.45-7.50 [facility] Comment on above: Order Comment: Speci men Type: BLOOD SPECIMENOrdering Facility: [facility] Address: [address] [place] [address] Performed By: #### 5 7021-8 ####[facility]ORATORYCLIA [id number] [address] Neutrophils/100 WBC (Bld) 76.1 % Normal [facility] Comment on above: Order Comment: Speci men Type: BLOOD SPECIMENOrdering Facility: [facility] Address: [address] [place] [address] Performed By: #### 5 7021-8 ####[facility]ORATORYCLIA [id number] [address] [place] Nucleated RBC (Bld) [#/Vol] 10*3/uL Normal <0.01 [facility] Comment on above: Order Comment: Speci men Type: BLOOD SPECIMENOrdering Facility: [facility] Address: [address] [place] [address] Performed By: #### 5 7021-8 ####[facility]ORATORYCLIA [id number] [address] Nucleated RBC/100 WBC (Bld) [Ratio] 0.0 /100 WBC Normal [facility] Comment on above: Order Comment: Speci men Type: BLOOD SPECIMENOrdering Facility: [facility] Address: [address] [place] [address] Performed By: #### 5 7021-8 ####[facility]ORATORYCLIA [id number] [address] [place] Platelet mean volume (Bld) [Entitic vol] 9.5 fL Normal 9.0-12.7 [facility] Comment on above: Order Comment: Speci men Type: BLOOD SPECIMENOrdering Facility: [facility] Address: [address] [place] [address] Performed By: #### 5 7021-8 ####[facility]ORATORYCLIA [id number] [address] [place] Platelets (Bld) [#/Vol] 247 10*3/uL Normal 150-400 [facility] Comment on above: Order Comment: Speci men Type: BLOOD SPECIMENOrdering Facility: [facility] Address: [address] [place] [address] Performed By: #### 5 7021-8 ####[facility]ORATORYCLIA [id number] [address] [place] RBC (Bld) [#/Vol] 3.10 10*6/uL Low 4.20-6.00 [facility] Comment on above: Order Comment: Speci men Type: BLOOD SPECIMENOrdering Facility: [facility] Address: [address] [place] [address] Performed By: #### 5 7021-8 ####[facility]ORATORYCLIA [id number] [address] OF [facility] WBC (Bld) [#/Vol] 8.50 10*3/uL Normal 3.70-11.00 [facility] Comment on above: Order Comment: Speci men Type: BLOOD SPECIMENOrdering Facility: [facility] Address: [address] [place] [address] Performed By: #### 5 7021-8 ####[facility]ORATORYCLIA [id number] [address] [place] CONSULTon 08-14-2021 CONSULT Normal [facility] NURSING PROGon 08-14-2021 NURSING PROG Normal [facility] CBC W Auto Differential pane l (Bld)on 08-13-2021 Basophils (Bld) [#/Vol] 10*3/uL Normal <0.11 [facility] Comment on above: Order Comment: Speci men Type: BLOOD SPECIMENOrdering Facility: [facility] Address: [address] [place] [address] Performed By: #### 5 7021-8 ####[facility]ORATORYCLIA [id number] [address] [place] [facility] Basophils/100 WBC (Bld) 0.2 % Normal [facility] Comment on above: Order Comment: Speci men Type: BLOOD SPECIMENOrdering Facility: [facility] Address: [address] [address] Performed By: #### 5 7021-8 ####[facility]ORATORYCLIA [id number] [address] Differential cell count method Nom (Bld) Auto Normal [facility] Comment on above: Order Comment: Speci men Type: BLOOD SPECIMENOrdering Facility: [facility] Address: [address] [place] [address] Performed By: #### 5 7021-8 ####[facility]ORATORYCLIA [id number] [address] Eosinophils (Bld) [#/Vol] 0.31 10*3/uL Normal <0.46 [facility] Comment on above: Order Comment: Speci men Type: BLOOD SPECIMENOrdering Facility: [facility] Address: [address] [place] [address] Performed By: #### 5 7021-8 ####[facility]ATORYCLIA [id number] [address] Eosinophils/100 WBC (Bld) 3.7 % Normal [facility] Comment on above: Order Comment: Speci men Type: BLOOD SPECIMENOrdering Facility: [facility] Address: [address] [place] [address] Performed By: #### 5 7021-8 ####[facility]ORATORYCLIA [id number] [address] Erythrocyte distribution width (RBC) [Ratio] 16.6 % High 11.5-15.0 [facility] Comment on above: Order Comment: Speci men Type: BLOOD SPECIMENOrdering Facility: [facility] Address: [address] [place] [address] Performed By: #### 5 7021-8 ####[facility]ORATORYCLIA [id number] [address] [place] Hematocrit (Bld) [Volume fraction] 27.5 % Low 39.0-51.0 [facility] Comment on above: Order Comment: Speci men Type: BLOOD SPECIMENOrdering Facility: [facility] Address: [address] [place] [address] Performed By: #### 5 7021-8 ####[facility]ORATORYCLIA [id number] [address] [facility] Hemoglobin (Bld) [Mass/Vol] 8.4 g/dL Low 13.0-17.0 [facility] Comment on above: Order Comment: Speci men Type: BLOOD SPECIMENOrdering Facility: [facility] Address: [address] [place] [address] Performed By: #### 5 7021-8 ####[facility]ORATORYCLIA [id number] [address] IMMATURE GRAN % 0.5 % Normal [facility] Comment on above: Order Comment: Speci men Type: BLOOD SPECIMENOrdering Facility: [facility] Address: [address] [place] [address] Performed By: #### 5 7021-8 ####[facility]ORATORYCLIA [id number] [address] IMMATURE GRAN ABS 0.04 k/uL Normal <0.10 [facility] Comment on above: Order Comment: Speci men Type: BLOOD SPECIMENOrdering Facility: [facility] Address: [address] [place] [address] Performed By: #### 5 7021-8 ####[facility]ORATORYCLIA [id number] [address] [place] Lymphocytes (Bld) [#/Vol] 1.55 10*3/uL Normal 1.00-4.00 [facility] Comment on above: Order Comment: Speci men Type: BLOOD SPECIMENOrdering Facility: [facility] Address: [address] [place] [address] Performed By: #### 5 7021-8 ####[facility]ORATORYCLIA [id number] [place] [address] Lymphocytes/100 WBC (Bld) 18.7 % Normal [facility] Comment on above: Order Comment: Speci men Type: BLOOD SPECIMENOrdering Facility: [facility] Address: [address] [place] [address] Performed By: #### 5 7021-8 ####[facility]ORATORYCLIA [id number] [address] MCH (RBC) [Entitic mass] 28.9 pg Normal 26.0-34.0 [facility] Comment on above: Order Comment: Speci men Type: BLOOD SPECIMENOrdering Facility: [facility] Address: [address] [place] [address] Performed By: #### 5 7021-8 ####[facility]ORATORYCLIA [id number] [address] OF [facility] MCHC (RBC) [Mass/Vol] 30.5 g/dL Normal 30.5-36.0 [facility] Comment on above: Order Comment: Speci men Type: BLOOD SPECIMENOrdering Facility: [facility] Address: [address] [place] [address] Performed By: #### 5 7021-8 ####[facility]ORATORYCLIA [id number] [address] MCV (RBC) [Entitic vol] 94.5 fL Normal 80.0-100.0 [facility] Comment on above: Order Comment: Speci men Type: BLOOD SPECIMENOrdering Facility: [facility] Address: [address] [place] [address] Performed By: #### 5 7021-8 ####[facility]ORATORYCLIA [id number] [address] Monocytes (Bld) [#/Vol] 0.47 10*3/uL Normal <0.87 [facility] Comment on above: Order Comment: Speci men Type: BLOOD SPECIMENOrdering Facility: [facility] Address: [address] [place] [address] Performed By: #### 5 7021-8 ####[facility]ORATORYCLIA [id number] [address] [place] Monocytes/100 WBC (Bld) 5.7 % Normal [facility] Comment on above: Order Comment: Speci men Type: BLOOD SPECIMENOrdering Facility: [facility] Address: [address] [place] [address] Performed By: #### 5 7021-8 ####[facility]ORATORYCLIA [id number] [place] [address] [place] Neutrophils (Bld) [#/Vol] 5.92 10*3/uL Normal 1.45-7.50 [facility] Comment on above: Order Comment: Speci men Type: BLOOD SPECIMENOrdering Facility: [facility] Address: [address] [place] [address] Performed By: #### 5 7021-8 ####[facility]ORATORYCLIA [id number] [address] Neutrophils/100 WBC (Bld) 71.2 % Normal [facility] Comment on above: Order Comment: Speci men Type: BLOOD SPECIMENOrdering Facility: [facility] Address: [address] [place] [address] Performed By: #### 5 7021-8 ####[facility] LABORATORYCLIA [id number] [address] [place] Nucleated RBC (Bld) [#/Vol] 10*3/uL Normal <0.01 [facility] Comment on above: Order Comment: Speci men Type: BLOOD SPECIMENOrdering Facility: [facility] Address: [address] [place] [address] Performed By: #### 5 7021-8 ####[facility]ORATORYCLIA [id number] [address] [place] Nucleated RBC/100 WBC (Bld) [Ratio] 0.0 /100 WBC Normal [facility] Comment on above: Order Comment: Speci men Type: BLOOD SPECIMENOrdering Facility: [facility] Address: [address] [place] [address] Performed By: #### 5 7021-8 ####[facility]ORATORYCLIA [id number] [address] Platelet mean volume (Bld) [Entitic vol] 9.9 fL Normal 9.0-12.7 [facility] Comment on above: Order Comment: Speci men Type: BLOOD SPECIMENOrdering Facility: [facility] Address: [address] [place] [address] Performed By: #### 5 7021-8 ####[facility]ORATORYCLIA [id number] [address] [place] Platelets (Bld) [#/Vol] 203 10*3/uL Normal 150-400 [facility] Comment on above: Order Comment: Speci men Type: BLOOD SPECIMENOrdering Facility: [facility] Address: [address] [place] [address] Performed By: #### 5 7021-8 ####[facility]ORATORYCLIA [id number] [address] [place] RBC (Bld) [#/Vol] 2.91 10*6/uL Low 4.20-6.00 [facility] Comment on above: Order Comment: Speci men Type: BLOOD SPECIMENOrdering Facility: [facility] Address: [address] [place], [place] [address] Performed By: #### 5 7021-8 ####[facility]ORATORYCLIA [id number] [address] [place] WBC (Bld) [#/Vol] 8.31 10*3/uL Normal 3.70-11.00 [facility] Comment on above: Order Comment: Speci men Type: BLOOD SPECIMENOrdering Facility: [facility] Address: [address] [place] [address] Performed By: #### 5 7021-8 ####[facility]ORATORYCLIA [id number] [place] [address] [place] aPTT PPPon 08-13-2021 aPTT Coag (PPP) [Time] 69.7 s High 23.0-32.4 [facility] Comment on above: Order Comment: Speci men Type: BLOOD SPECIMENOrdering Facility: [facility] Address: [address] [place] [address] Performed By: #### 1 4979-9 ####[facility]ORATORYCLIA [id number] [address] [place] aPTT Coag (PPP) [Time] 70.6 s High 23.0-32.4 [facility] Comment on above: Order Comment: Speci men Type: BLOOD SPECIMENOrdering Facility: [facility] Address: [address] [place] [address] Performed By: #### 1 4979-9 ####[facility]ORATORYCLIA [id number] [place] [address] [place] ALLIED HEALTHon 08-12-2021 ALLIED HEALTH Normal [facility] ALLIED HEALTH Normal [facility] Basic metabolic 2000 panelon 08-12-2021 Anion gap [Moles/Vol] 7 mmol/L Low 9-18 [facility] Comment on above: Order Comment: Speci men Type: BLOOD SPECIMENOrdering Facility: [facility] Address: [address] [place] [address] Performed By: #### 2 4321-2, , 2776-05 ####[facility]ORATORYCLIA [id number] [address] STATES OF [facility] Calcium [Mass/Vol] 8.8 mg/dL Normal 8.5-10.2 [facility] Comment on above: Order Comment: Speci men Type: BLOOD SPECIMENOrdering Facility: [facility] Address: [address] [place] [address] Performed By: #### 2 4321-2, , 2776-05 ####[facility]ORATORYCLIA [id number] [place], [place] [id number] [place] [address] [place] Chloride [Moles/Vol] 96 mmol/L Low 97-105 [facility] Comment on above: Order Comment: Speci men Type: BLOOD SPECIMENOrdering Facility: [facility] Address: [address] [place] [address] Performed By: #### 2 4321-2, 68792-4, 2776- ####[facility]ORATORYCLIA [id number] [address] STATES [place] [facility] CO2 [Moles/Vol] 32 mmol/L High 22-30 [facility] Comment on above: Order Comment: Speci men Type: BLOOD SPECIMENOrdering Facility: [facility] Address: [address] [place] [address] Performed By: #### 2 4321-2, , 2776-05 ####[facility]ORATORYCLIA [id number] [address] [facility] Creatinine [Mass/Vol] 0.52 mg/dL Low 0.73-1.22 [facility] Comment on above: Order Comment: Speci men Type: BLOOD SPECIMENOrdering Facility: [facility] Address: [address] [place] [address] Performed By: #### 2 4321-2, , 2776-05 ####[facility]ORATORYCLIA [id number] [address] ESTIMATED GLOMERULAR FILTRATION RATE 109 mL/min/1.73m??? Normal >=60 [facility] Comment on above: Order Comment: Speci men Type: BLOOD SPECIMENOrdering Facility: [facility] Address: [address] [place] [address] Result Comment: Luzmaria mated Glomerular Filtration Rate [...] 4321-2, , 2776-05 ####[facility]ORATORYCLIA [id number] [place] [address] [place] Glucose [Mass/Vol] 119 mg/dL High 74-99 [facility] Comment on above: Order Comment: Speci men Type: BLOOD SPECIMENOrdering Facility: [facility] Address: [address] [place], [place] [phone] Result Comment: The [employer] [place] [employer] (ADA) provides guidance for cutoff [...] Standards of Medical Care in Diabetes 2016, [employer] [place] [employer]. Diabetes Care. 2016.39(Suppl 1). Performed By: #### 2 4321-2, , 2776-05 ####[facility]ORATORYCLIA [id number] [place] [address] [place] Potassium [Moles/Vol] 3.7 mmol/L Normal 3.7-5.1 [facility] Comment on above: Order Comment: Speci men Type: BLOOD SPECIMENOrdering Facility: [facility] Address: [address] [phone] Performed By: #### 2 4321-2, , 2776-05 ####[facility] LABORATORYIA [id number] [place] [address] [place] Sodium [Moles/Vol] 135 mmol/L Low 136-144 [facility] Comment on above: Order Comment: Shira francia Type: BLOOD SPECIMENOrdering Facility: [facility] Address: [address] [phone] Performed By: #### 2 4321-2, 97529-6, 277-1 ####[facility]ORATORYCLIA [id number] [address] STATES [facility] Urea nitrogen [Mass/Vol] 20 mg/dL Normal 9-24 [facility] Comment on above: Order Comment: Speci men Type: BLOOD SPECIMENOrdering Facility: [facility] Address: [address] [place] [address] Performed By: #### 2 4321-2, , 2776-05 ####[facility]ORATORYCLIA [id number] [address] [facility] CASE MANAGEMon 08-12-2021 CASE MANAGEM Normal [facility] CBC W Auto Differential pane l (Bld)on 08-12-2021 Basophils (Bld) [#/Vol] 0.04 10*3/uL Normal <0.11 [facility] Comment on above: Order Comment: Speci men Type: BLOOD SPECIMENOrdering Facility: [facility] Address: [address] [place] [address] Performed By: #### 5 7021-8 ####[facility]ORATORYCLIA [id number] [address] Basophils/100 WBC (Bld) 0.5 % Normal [facility] Comment on above: Order Comment: Speci men Type: BLOOD SPECIMENOrdering Facility: [facility] Address: [address] [place] [address] Performed By: #### 5 7021-8 ####[facility]ORATORYCLIA [id number] [address] [place] Differential cell count method Nom (Bld) Auto Normal [facility] Comment on above: Order Comment: Speci men Type: BLOOD SPECIMENOrdering Facility: [facility] Address: [address] [place] [address] Performed By: #### 5 7021-8 ####[facility]ORATORYCLIA [id number] [address] [place] Eosinophils (Bld) [#/Vol] 0.19 10*3/uL Normal <0.46 [facility] Comment on above: Order Comment: Speci men Type: BLOOD SPECIMENOrdering Facility: [facility] Address: [address] [place] [address] Performed By: #### 5 7021-8 ####[facility]ORATORYCLIA [id number] [address] [place] Eosinophils/100 WBC (Bld) 2.3 % Normal [facility] Comment on above: Order Comment: Speci men Type: BLOOD SPECIMENOrdering Facility: [facility] Address: [address] [place] [address] Performed By: #### 5 7021-8 ####[facility]ORATORYCLIA [id number] [address] Erythrocyte distribution width (RBC) [Ratio] 17.1 % High 11.5-15.0 [facility] Comment on above: Order Comment: Speci men Type: BLOOD SPECIMENOrdering Facility: [facility] Address: [address] [place] [address] Performed By: #### 5 7021-8 ####[facility]ORATORYCLIA [id number] [address] [place] Hematocrit (Bld) [Volume fraction] 25.3 % Low 39.0-51.0 [facility] Comment on above: Order Comment: Speci men Type: BLOOD SPECIMENOrdering Facility: [facility] Address: [address] [place] [address] Performed By: #### 5 7021-8 ####[facility]ORATORYCLIA [id number] [address] [place] Hemoglobin (Bld) [Mass/Vol] 7.9 g/dL Low 13.0-17.0 [facility] Comment on above: Order Comment: Speci men Type: BLOOD SPECIMENOrdering Facility: [facility] Address: [address] [place] [address] Performed By: #### 5 7021-8 ####[facility] LABORATORYCLIA [id number] [address] IMMATURE GRAN % 0.5 % Normal [facility] Comment on above: Order Comment: Speci men Type: BLOOD SPECIMENOrdering Facility: [facility] Address: [address] [place] [address] Performed By: #### 5 7021-8 ####[facility]ORATORYCLIA [id number] [address] IMMATURE GRAN ABS 0.04 k/uL Normal <0.10 [facility] Comment on above: Order Comment: Speci men Type: BLOOD SPECIMENOrdering Facility: [facility] Address: [address] [place] [address] Performed By: #### 5 7021-8 ####[facility]ORATORYCLIA [id number] [address] Lymphocytes (Bld) [#/Vol] 1.69 10*3/uL Normal 1.00-4.00 [facility] Comment on above: Order Comment: Speci men Type: BLOOD SPECIMENOrdering Facility: [facility] Address: [address] [place] [address] Performed By: #### 5 7021-8 ####[facility]ORATORYCLIA [id number] [address] Lymphocytes/100 WBC (Bld) 20.1 % Normal [facility] Comment on above: Order Comment: Speci men Type: BLOOD SPECIMENOrdering Facility: [facility] Address: [address] [place] [address] Performed By: #### 5 7021-8 ####[facility]ORATORYCLIA [id number] [address] MCH (RBC) [Entitic mass] 28.5 pg Normal 26.0-34.0 [facility] Comment on above: Order Comment: Speci men Type: BLOOD SPECIMENOrdering Facility: [facility] Address: [address] [place] [address] Performed By: #### 5 7021-8 ####[facility]ORATORYCLIA [id number] [address] STATES [facility] MCHC (RBC) [Mass/Vol] 31.2 g/dL Normal 30.5-36.0 [facility] Comment on above: Order Comment: Speci men Type: BLOOD SPECIMENOrdering Facility: [facility] Address: [address] [place] [address] Performed By: #### 5 7021-8 ####[facility]ORATORYCLIA [id number] [address] OF [facility] MCV (RBC) [Entitic vol] 91.3 fL Normal 80.0-100.0 [facility] Comment on above: Order Comment: Speci men Type: BLOOD SPECIMENOrdering Facility: [facility] Address: [address] [place] [address] Performed By: #### 5 7021-8 ####[facility]ORATORYCLIA [id number] [address] [place] [facility] Monocytes (Bld) [#/Vol] 0.53 10*3/uL Normal <0.87 [facility] Comment on above: Order Comment: Speci men Type: BLOOD SPECIMENOrdering Facility: [facility] Address: [address] [place] [address] Performed By: #### 5 7021-8 ####[facility]ORATORYCLIA [id number] [address] Monocytes/100 WBC (Bld) 6.3 % Normal [facility] Comment on above: Order Comment: Speci men Type: BLOOD SPECIMENOrdering Facility: [facility] Address: [address] [place] [address] Performed By: #### 5 7021-8 ####[facility]ORATORYCLIA [id number] [address] [place] Neutrophils (Bld) [#/Vol] 5.90 10*3/uL Normal 1.45-7.50 [facility] Comment on above: Order Comment: Speci men Type: BLOOD SPECIMENOrdering Facility: [facility] Address: [address] [place] [address] Performed By: #### 5 7021-8 ####[facility]ORATORYCLIA [id number] [address] Neutrophils/100 WBC (Bld) 70.3 % Normal [facility] Comment on above: Order Comment: Speci men Type: BLOOD SPECIMENOrdering Facility: [facility] Address: [address] [place] [address] Performed By: #### 5 7021-8 ####[facility]ORATORYCLIA [id number] [address] [place] Nucleated RBC (Bld) [#/Vol] 10*3/uL Normal <0.01 [facility] Comment on above: Order Comment: Speci men Type: BLOOD SPECIMENOrdering Facility: [facility] Address: [address] [place] [address] Performed By: #### 5 7021-8 ####[facility]ORATORYCLIA [id number] [address] Nucleated RBC/100 WBC (Bld) [Ratio] 0.0 /100 WBC Normal [facility] Comment on above: Order Comment: Speci men Type: BLOOD SPECIMENOrdering Facility: [facility] Address: [address] [place] [address] Performed By: #### 5 7021-8 ####[facility]ORATORYCLIA [id number] [address] [place] Platelet mean volume (Bld) [Entitic vol] 9.8 fL Normal 9.0-12.7 [facility] Comment on above: Order Comment: Speci men Type: BLOOD SPECIMENOrdering Facility: [facility] Address: [address] [place] [address] Performed By: #### 5 7021-8 ####[facility]ORATORYCLIA [id number] [address] [place] Platelets (Bld) [#/Vol] 164 10*3/uL Normal 150-400 [facility] Comment on above: Order Comment: Speci men Type: BLOOD SPECIMENOrdering Facility: [facility] Address: [address] [place] [address] Performed By: #### 5 7021-8 ####[facility]ORATORYCLIA [id number] [place] [address] [place] RBC (Bld) [#/Vol] 2.77 10*6/uL Low 4.20-6.00 [facility] Comment on above: Order Comment: Speci men Type: BLOOD SPECIMENOrdering Facility: [facility] Address: [address] [place] [address] Performed By: #### 5 7021-8 ####[facility]ORATORYCLIA [id number] [address] [facility] WBC (Bld) [#/Vol] 8.39 10*3/uL Normal 3.70-11.00 [facility] Comment on above: Order Comment: Speci men Type: BLOOD SPECIMENOrdering Facility: [facility] Address: [address] [place] [address] Performed By: #### 5 7021-8 ####[facility]ORATORYCLIA [id number] [address] [place] CT BRAIN WO IVCONon 08-13-19 CT BRAIN WO IVCON Normal [facility] CT BRAIN WO IVCON Normal [facility] Magnesium SerPl-mCncon 08-12 Magnesium [Mass/Vol] 2.0 mg/dL Normal 1.7-2.3 [facility] Comment on above: Order Comment: Speci men Type: BLOOD SPECIMENOrdering Facility: [facility] Address: [address] [place] [address] Performed By: #### 2 4321-2, 52658-3, 2777-1 ####[facility]ORATORYCLIA [id number] [address] Phosphate SerPl-mCncon 08-12 Phosphate [Mass/Vol] 2.9 mg/dL Normal 2.7-4.8 [facility] Comment on above: Order Comment: Speci men Type: BLOOD SPECIMENOrdering Facility: [facility] Address: [address] [place] [address] Performed By: #### 2 4321-2, 53733-4, 2777-1 ####[facility]ORATORYCLIA [id number] [address] THERAPY NTon 08-12-2021 THERAPY NT Normal [facility] THERAPY NT Normal [facility] aPTT PPPon 08-12-2021 aPTT Coag (PPP) [Time] 94.2 s High 23.0-32.4 [facility] Comment on above: Order Comment: Speci men Type: BLOOD SPECIMENOrdering Facility: [facility] Address: [address] [place] [address] Performed By: #### 1 4979-9 ####[facility]ORATORYCLIA [id number] [address] aPTT Coag (PPP) [Time] 84.4 s High 23.0-32.4 [facility] Comment on above: Order Comment: Speci men Type: BLOOD SPECIMENOrdering Facility: [facility] Address: [address] [place] [address] Performed By: #### 1 4979-9 ####[facility]ORATORYCLIA [id number] [address] aPTT Coag (PPP) [Time] 71.3 s High 23.0-32.4 [facility] Comment on above: Order Comment: Speci men Type: BLOOD SPECIMENOrdering Facility: [facility] Address: [address] [place] [address] Performed By: #### 1 4979-9 ####[facility]ORATORYCLIA [id number] [place] [address] [place] ALLIED HEALTHon 08-11-2021 ALLIED HEALTH Normal [facility] CBC W Auto Differential pane l (Bld)on 08-11-2021 Basophils (Bld) [#/Vol] 10*3/uL Normal <0.11 [facility] Comment on above: Order Comment: Speci men Type: BLOOD SPECIMENOrdering Facility: [facility] Address: [address] [place] [address] Performed By: #### 5 7021-8 ####[facility]ORATORYCLIA [id number] [address] [place] Basophils/100 WBC (Bld) 0.2 % Normal [facility] Comment on above: Order Comment: Speci men Type: BLOOD SPECIMENOrdering Facility: [facility] Address: [address] [place] [address] Performed By: #### 5 7021-8 ####[facility]ORATORYCLIA [id number] [address] [place] Differential cell count method Nom (Bld) Auto Normal [facility] Comment on above: Order Comment: Speci men Type: BLOOD SPECIMENOrdering Facility: [facility] Address: [address] [place] [address] Performed By: #### 5 7021-8 ####[facility]ORATORYCLIA [id number] [place] [address] [place] Eosinophils (Bld) [#/Vol] 0.16 10*3/uL Normal <0.46 [facility] Comment on above: Order Comment: Speci men Type: BLOOD SPECIMENOrdering Facility: [facility] Address: [address] [place] [address] Performed By: #### 5 7021-8 ####[facility]ORATORYCLIA [id number] [address] [place] Eosinophils/100 WBC (Bld) 1.8 % Normal [facility] Comment on above: Order Comment: Speci men Type: BLOOD SPECIMENOrdering Facility: [facility] Address: [address] [place] [address] Performed By: #### 5 7021-8 ####[facility]ORATORYCLIA [id number] [address] Erythrocyte distribution width (RBC) [Ratio] 17.3 % High 11.5-15.0 [facility] Comment on above: Order Comment: Speci men Type: BLOOD SPECIMENOrdering Facility: [facility] Address: [address] [place] [address] Performed By: #### 5 7021-8 ####[facility]ORATORYCLIA [id number] [address] Hematocrit (Bld) [Volume fraction] 26.6 % Low 39.0-51.0 [facility] Comment on above: Order Comment: Speci men Type: BLOOD SPECIMENOrdering Facility: [facility] Address: [address] [place] [address] Performed By: #### 5 7021-8 ####[facility]ORATORYCLIA [id number] [address] Hemoglobin (Bld) [Mass/Vol] 8.2 g/dL Low 13.0-17.0 [facility] Comment on above: Order Comment: Speci men Type: BLOOD SPECIMENOrdering Facility: [facility] Address: [address] [place] [address] Performed By: #### 5 7021-8 ####[facility]ORATORYCLIA [id number] [address] IMMATURE GRAN % 0.6 % Normal [facility] Comment on above: Order Comment: Speci men Type: BLOOD SPECIMENOrdering Facility: [facility] Address: [address] [place] [address] Performed By: #### 5 7021-8 ####[facility]ORATORYCLIA [id number] [address] IMMATURE GRAN ABS 0.05 k/uL Normal <0.10 [facility] Comment on above: Order Comment: Speci men Type: BLOOD SPECIMENOrdering Facility: [facility] Address: [address] [place] [address] Performed By: #### 5 7021-8 ####[facility] LABORATORYCLIA [id number] [address] Lymphocytes (Bld) [#/Vol] 1.40 10*3/uL Normal 1.00-4.00 [facility] Comment on above: Order Comment: Speci men Type: BLOOD SPECIMENOrdering Facility: [facility] Address: [address] [place] [address] Performed By: #### 5 7021-8 ####[facility]ORATORYCLIA [id number] [address] Lymphocytes/100 WBC (Bld) 15.8 % Normal [facility] Comment on above: Order Comment: Speci men Type: BLOOD SPECIMENOrdering Facility: [facility] Address: [address] [place] [address] Performed By: #### 5 7021-8 ####[facility] LABORATORYCLIA [id number] [address] STATES [facility] MCH (RBC) [Entitic mass] 28.4 pg Normal 26.0-34.0 [facility] Comment on above: Order Comment: Speci men Type: BLOOD SPECIMENOrdering Facility: [facility] Address: [address] [place] [address] Performed By: #### 5 7021-8 ####[facility] LABORATORYCLIA [id number] [address] [place] [facility] MCHC (RBC) [Mass/Vol] 30.8 g/dL Normal 30.5-36.0 [facility] Comment on above: Order Comment: Speci men Type: BLOOD SPECIMENOrdering Facility: [facility] Address: [address] [place] [address] Performed By: #### 5 7021-8 ####[facility] LABORATORYCLIA [id number] [place] [address] [place] MCV (RBC) [Entitic vol] 92.0 fL Normal 80.0-100.0 [facility] Comment on above: Order Comment: Speci men Type: BLOOD SPECIMENOrdering Facility: [facility] Address: [address] [place] [address] Performed By: #### 5 7021-8 ####[facility] LABORATORYCLIA [id number] [place] [address] [place] Monocytes (Bld) [#/Vol] 0.61 10*3/uL Normal <0.87 [facility] Comment on above: Order Comment: Speci men Type: BLOOD SPECIMENOrdering Facility: [facility] Address: [address] [place] [address] Performed By: #### 5 7021-8 ####[facility] LABORATORYCLIA [id number] [address] STATES [facility] Monocytes/100 WBC (Bld) 6.9 % Normal [facility] Comment on above: Order Comment: Speci men Type: BLOOD SPECIMENOrdering Facility: [facility] Address: [address] [place] [address] Performed By: #### 5 7021-8 ####[facility] LABORATORYCLIA [id number] [place] [address] [place] Neutrophils (Bld) [#/Vol] 6.62 10*3/uL Normal 1.45-7.50 [facility] Comment on above: Order Comment: Speci men Type: BLOOD SPECIMENOrdering Facility: [facility] Address: [address] [place] [address] Performed By: #### 5 7021-8 ####[facility] LABORATORYCLIA [id number] [address] [place] Neutrophils/100 WBC (Bld) 74.7 % Normal [facility] Comment on above: Order Comment: Speci men Type: BLOOD SPECIMENOrdering Facility: [facility] Address: [address] [address] Performed By: #### 5 7021-8 ####[facility] LABORATORYCLIA [id number] [address] Nucleated RBC (Bld) [#/Vol] 10*3/uL Normal <0.01 [facility] Comment on above: Order Comment: Speci men Type: BLOOD SPECIMENOrdering Facility: [facility] Address: [address] [place] [address] Performed By: #### 5 7021-8 ####[facility] LABORATORYCLIA [id number] [address] Nucleated RBC/100 WBC (Bld) [Ratio] 0.0 /100 WBC Normal [facility] Comment on above: Order Comment: Speci men Type: BLOOD SPECIMENOrdering Facility: [facility] Address: [address] [place] [address] Performed By: #### 5 7021-8 ####[facility] LABORATORYCLIA [id number] [address] [place] Platelet mean volume (Bld) [Entitic vol] 9.8 fL Normal 9.0-12.7 [facility] Comment on above: Order Comment: Speci men Type: BLOOD SPECIMENOrdering Facility: [facility] Address: [address] [place] [address] Performed By: #### 5 7021-8 ####[facility]ORATORYCLIA [id number] [address] Platelets (Bld) [#/Vol] 157 10*3/uL Normal 150-400 [facility] Comment on above: Order Comment: Speci men Type: BLOOD SPECIMENOrdering Facility: [facility] Address: [address] [place] [address] Performed By: #### 5 7021-8 ####[facility]ORATORYCLIA [id number] [address] [place] RBC (Bld) [#/Vol] 2.89 10*6/uL Low 4.20-6.00 [facility] Comment on above: Order Comment: Speci men Type: BLOOD SPECIMENOrdering Facility: [facility] Address: [address] [place] [address] Performed By: #### 5 7021-8 ####[facility]ORATORYCLIA [id number] [place] [address] [place] WBC (Bld) [#/Vol] 8.86 10*3/uL Normal 3.70-11.00 [facility] Comment on above: Order Comment: Speci men Type: BLOOD SPECIMENOrdering Facility: [facility] Address: [address] [place] [address] Performed By: #### 5 7021-8 ####[facility]ORATORYCLIA [id number] [address] OF [facility] CBC panel Auto (Bld)on 08-11 Erythrocyte distribution width (RBC) [Ratio] 17.2 % High 11.5-15.0 [facility] Comment on above: Order Comment: Speci men Type: BLOOD SPECIMENOrdering Facility: [facility] Address: [address] [place] [address] Performed By: #### 5 8410-2 ####[facility]ORATORYCLIA [id number] [address] [place] Hematocrit (Bld) [Volume fraction] 27.0 % Low 39.0-51.0 [facility] Comment on above: Order Comment: Speci men Type: BLOOD SPECIMENOrdering Facility: [facility] Address: [address] [place] [address] Performed By: #### 5 8410-2 ####[facility]ORATORYCLIA [id number] [address] Hemoglobin (Bld) [Mass/Vol] 8.3 g/dL Low 13.0-17.0 [facility] Comment on above: Order Comment: Speci men Type: BLOOD SPECIMENOrdering Facility: [facility] Address: [address] [place] [address] Performed By: #### 5 8410-2 ####[facility] LABORATORYCLIA [id number] [address] MCH (RBC) [Entitic mass] 28.7 pg Normal 26.0-34.0 [facility] Comment on above: Order Comment: Speci men Type: BLOOD SPECIMENOrdering Facility: [facility] Address: [address] [place] [address] Performed By: #### 5 8410-2 ####[facility]ORATORYCLIA [id number] [address] MCHC (RBC) [Mass/Vol] 30.7 g/dL Normal 30.5-36.0 [facility] Comment on above: Order Comment: Speci men Type: BLOOD SPECIMENOrdering Facility: [facility] Address: [address] [place] [address] Performed By: #### 5 8410-2 ####[facility]ORATORYCLIA [id number] [address] STATES OF [facility] MCV (RBC) [Entitic vol] 93.4 fL Normal 80.0-100.0 [facility] Comment on above: Order Comment: Speci men Type: BLOOD SPECIMENOrdering Facility: [facility] Address: [address] [place] [address] Performed By: #### 5 8410-2 ####[facility]ORATORYCLIA [id number] [address] Nucleated RBC (Bld) [#/Vol] 10*3/uL Normal <0.01 [facility] Comment on above: Order Comment: Speci men Type: BLOOD SPECIMENOrdering Facility: [facility] Address: [address] [place] [address] Performed By: #### 5 8410-2 ####[facility]ORATORYCLIA [id number] [address] Platelet mean volume (Bld) [Entitic vol] 9.8 fL Normal 9.0-12.7 [facility] Comment on above: Order Comment: Speci men Type: BLOOD SPECIMENOrdering Facility: [facility] Address: [address] [place] [address] Performed By: #### 5 8410-2 ####[facility]ORATORYCLIA [id number] [address] Platelets (Bld) [#/Vol] 169 10*3/uL Normal 150-400 [facility] Comment on above: Order Comment: Speci men Type: BLOOD SPECIMENOrdering Facility: [facility] Address: [address] [place] [address] Performed By: #### 5 8410-2 ####[facility] LABORATORYCLIA [id number] [address] STATES [facility] RBC (Bld) [#/Vol] 2.89 10*6/uL Low 4.20-6.00 [facility] Comment on above: Order Comment: Speci men Type: BLOOD SPECIMENOrdering Facility: [facility] Address: [address] [place] [address] Performed By: #### 5 8410-2 ####[facility]ORATORYCLIA [id number] [address] WBC (Bld) [#/Vol] 9.03 10*3/uL Normal 3.70-11.00 [facility] Comment on above: Order Comment: Speci men Type: BLOOD SPECIMENOrdering Facility: [facility] Address: [address] [place] [address] Performed By: #### 5 8410-2 ####[facility]ORATORYCLIA [id number] [address] BRAIN WO IVCONon 08-12-19 CT BRAIN WO IVCON Normal [facility] PT panel Coag (PPP)on 2021 INR Coag (PPP) [Relative time] 1.0 {INR} Normal 0.9-1.3 [facility] Comment on above: Order Comment: Shira feldman Type: BLOOD SPECIMENOrdering Facility: [facility] Address: [address] [phone] Result Comment: Yris min K Antagonist (VKA) Therapeutic Range: INR 2 to 3 (Target INR of 2.5)Note: For patients treated with VKA drugs, such as warfarin, the [employer] 2012 Guideline recommends [...] 70: 252-289 Performed By: #### 1 4979-9, 19815-3 ####[facility]ORATORYCLIA [id number] [place] [address] [place] PT Coag (PPP) [Time] 11.4 s Normal 9.7-13.0 [facility] Comment on above: Order Comment: Shira feldman Type: BLOOD SPECIMENOrdering Facility: [facility] Address: [address] [phone] Performed By: #### 1 4979-9, 66929-7 ####[facility]ORATORYCLIA [id number] [place] [address] [place] THERAPY NTon 08-11-2021 THERAPY NT Normal [facility] US DVT LOWER BILon 2 US DVT LOWER RAINER Normal [facility] US DVT UPPER BILon 2 US DVT UPPER RAINER Normal [facility] aPTT PPPon 08-11-2021 aPTT Coag (PPP) [Time] 26.9 s Normal 23.0-32.4 [facility] Comment on above: Order Comment: Speci men Type: BLOOD SPECIMENOrdering Facility: [facility] Address: [address] [place] [address] Performed By: #### 1 4979-9, 54416-6 ####[facility]ORATORYCLIA [id number] [place] [address] [place] Basic metabolic 2000 panelon 08-10-2021 Anion gap [Moles/Vol] 11 mmol/L Normal 9-18 [facility] Comment on above: Order Comment: Speci men Type: BLOOD SPECIMENOrdering Facility: [facility] Address: [address] [place] [address] Performed By: #### 2 4321-2 ####[facility]ORATORYCLIA [id number] [place] [address] [place] Calcium [Mass/Vol] 8.7 mg/dL Normal 8.5-10.2 [facility] Comment on above: Order Comment: Speci men Type: BLOOD SPECIMENOrdering Facility: [facility] Address: [address] [place] [address] Performed By: #### 2 4321-2 ####[facility]ORATORYCLIA [id number] [address] [place] Chloride [Moles/Vol] 98 mmol/L Normal 97-105 [facility] Comment on above: Order Comment: Speci men Type: BLOOD SPECIMENOrdering Facility: [facility] Address: [address] [place] [address] Performed By: #### 2 4321-2 ####[facility] LABORATORYCLIA [id number] [place] [address] [place] CO2 [Moles/Vol] 28 mmol/L Normal 22-30 [facility] Comment on above: Order Comment: Speci men Type: BLOOD SPECIMENOrdering Facility: [facility] Address: [address] [place] [address] Performed By: #### 2 4321-2 ####[facility]ORATORYCLIA [id number] [address] STATES [facility] Creatinine [Mass/Vol] 0.59 mg/dL Low 0.73-1.22 [facility] Comment on above: Order Comment: Johncara feldman Type: BLOOD SPECIMENOrdering Facility: [facility] Address: [address] [place] [address] Performed By: #### 2 4321-2 ####[facility]ORATORYCLIA [id number] [address] ESTIMATED GLOMERULAR FILTRATION RATE 105 mL/min/1.73m??? Normal >=60 [facility] Comment on above: Order Comment: Shira feldman Type: BLOOD SPECIMENOrdering Facility: [facility] Address: [address] [place] [address] Result Comment: Luzmaria mated Glomerular Filtration Rate [...] By: #### 2 4321-2 ####[facility]ITALIA [id number] [address] [place] [facility] Glucose [Mass/Vol] 118 mg/dL High 74-99 [facility] Comment on above: Order Comment: Shira francia Type: BLOOD SPECIMENOrdering Facility: [facility] Address: [address] [place] [address] Result Comment: The [employer] [place] [employer] (ADA) provides guidance for cutoff [...] Standards of Medical Care in Diabetes 2016, [employer]. Diabetes Care. 2016.39(Suppl 1). Performed By: #### 2 4321-2 ####[facility]ORATORYCLIA [id number] [address] [place] Potassium [Moles/Vol] 3.7 mmol/L Normal 3.7-5.1 [facility] Comment on above: Order Comment: Speci men Type: BLOOD SPECIMENOrdering Facility: [facility] Address: [address] [place] [address] Performed By: #### 2 4321-2 ####[facility]ORATORYCLIA [id number] [address] [place] [facility] Sodium [Moles/Vol] 137 mmol/L Normal 136-144 [facility] Comment on above: Order Comment: Speci men Type: BLOOD SPECIMENOrdering Facility: [facility] Address: [address] [place] [address] Performed By: #### 2 4321-2 ####[facility]ORATORYCLIA [id number] [address] STATES [facility] Urea nitrogen [Mass/Vol] 23 mg/dL Normal 9-24 [facility] Comment on above: Order Comment: Speci men Type: BLOOD SPECIMENOrdering Facility: [facility] Address: [address] [place] [address] Performed By: #### 2 4321-2 ####[facility]ORATORYCLIA [id number] [address] [place] Anion gap [Moles/Vol] 17 mmol/L Normal 9-18 [facility] Comment on above: Order Comment: Speci men Type: BLOOD SPECIMENOrdering Facility: [facility] Address: [address] [place] [address] Performed By: #### 1 9123-9, 2777-1, 85940-7 ####[facility]ORATORYCLIA [id number] [address] [place] [facility] Calcium [Mass/Vol] 7.7 mg/dL Low 8.5-10.2 [facility] Comment on above: Order Comment: Speci men Type: BLOOD SPECIMENOrdering Facility: [facility] Address: [address] [place] [address] Performed By: #### 1 9123-9, 2777-1, 05268-3 ####[facility]ORATORYCLIA [id number] [place] [address] [place] Chloride [Moles/Vol] 86 mmol/L Low 97-105 [facility] Comment on above: Order Comment: Speci men Type: BLOOD SPECIMENOrdering Facility: [facility] Address: [address] [place] [address] Performed By: #### 1 9123-9, 2776-05, 47235-9 ####[facility]ORATORYCLIA [id number] [address] [place] [facility] CO2 [Moles/Vol] 24 mmol/L Normal 22-30 [facility] Comment on above: Order Comment: Speci men Type: BLOOD SPECIMENOrdering Facility: [facility] Address: [address] [place] [address] Performed By: #### 1 9123-9, 2776-05, 39641-9 ####[facility]ORATORYCLIA [id number] [address] [place] [facility] Creatinine [Mass/Vol] 0.53 mg/dL Low 0.73-1.22 [facility] Comment on above: Order Comment: Speci men Type: BLOOD SPECIMENOrdering Facility: [facility] Address: [address] [place] [address] Performed By: #### 1 9123-9, 27711-04, 58961-7 ####[facility] LABORATORYCLIA [id number] [address] OF [facility] ESTIMATED GLOMERULAR FILTRATION RATE 108 mL/min/1.73m??? Normal >=60 [facility] Comment on above: Order Comment: Speci men Type: BLOOD SPECIMENOrdering Facility: [facility] Address: [address] [phone] Result Comment: Luzmaria mated Glomerular Filtration Rate [...] GFR. Performed By: #### 1 9123-9, 2777-1, 81190-4 ####[facility]ITALCLIA [id number] [place] [address] [place] Glucose [Mass/Vol] 455 mg/dL High 74-99 [facility] Comment on above: Order Comment: Shira feldman Type: BLOOD SPECIMENOrdering Facility: [facility] Address: [address] [place] [address] Result Comment: The [employer] [place] [employer] (ADA) provides guidance for cutoff [...] Standards of Medical Care in Diabetes 2016, [employer]. Diabetes Care. 2016.39(Suppl 1). Performed By: #### 1 9123-9, 2777-1, 96886-5 ####[facility]ORATORYCLIA [id number] [place] [address] [place] Potassium [Moles/Vol] 3.4 mmol/L Low 3.7-5.1 [facility] Comment on above: Order Comment: Shira [facility] Type: BLOOD SPECIMENOrdering Facility: [facility] Address: [address] [phone] Performed By: #### 1 9123-9, 2777-, 23365-6 ####[facility]ORATORYCLIA [id number] [address] [place] Sodium [Moles/Vol] 127 mmol/L Low 136-144 [facility] Comment on above: Order Comment: Speci men Type: BLOOD SPECIMENOrdering Facility: [facility] Address: [address] [place] [address] Performed By: #### 1 9123-9, 2777, 08548-0 ####[facility]ORATORYCLIA [id number] [address] [place] Urea nitrogen [Mass/Vol] 21 mg/dL Normal 9-24 [facility] Comment on above: Order Comment: Speci men Type: BLOOD SPECIMENOrdering Facility: [facility] Address: [address] [place] [address] Performed By: #### 1 9123-9, 2777, ####[facility]ORATORYCLIA [id number] [address] [place] CASE MANAGEMon 08-10-2021 CASE MANAGEM Normal [facility] CBC W Auto Differential pane l (Bld)on 08-10-2021 Basophils (Bld) [#/Vol] 0.04 10*3/uL Normal <0.11 [facility] Comment on above: Order Comment: Speci men Type: BLOOD SPECIMENOrdering Facility: [facility] Address: [address] [place] [address] Performed By: #### 5 7021-8 ####[facility] LABORATORYCLIA [id number] [address] STATES [facility] Basophils/100 WBC (Bld) 0.4 % Normal [facility] Comment on above: Order Comment: Speci men Type: BLOOD SPECIMENOrdering Facility: [facility] Address: [address] [place] [address] Performed By: #### 5 7021-8 ####[facility]ORATORYCLIA [id number] [address] Differential cell count method Nom (Bld) Auto Normal [facility] Comment on above: Order Comment: Speci men Type: BLOOD SPECIMENOrdering Facility: [facility] Address: [address] [place] [address] Performed By: #### 5 7021-8 ####[facility]ORATORYCLIA [id number] [address] [place] Eosinophils (Bld) [#/Vol] 0.11 10*3/uL Normal <0.46 [facility] Comment on above: Order Comment: Speci men Type: BLOOD SPECIMENOrdering Facility: [facility] Address: [address] [place] [address] Performed By: #### 5 7021-8 ####[facility]ORATORYCLIA [id number] [address] Eosinophils/100 WBC (Bld) 1.1 % Normal [facility] Comment on above: Order Comment: Speci men Type: BLOOD SPECIMENOrdering Facility: [facility] Address: [address] [place] [address] Performed By: #### 5 7021-8 ####[facility]ORATORYCLIA [id number] [address] Erythrocyte distribution width (RBC) [Ratio] 17.2 % High 11.5-15.0 [facility] Comment on above: Order Comment: Speci men Type: BLOOD SPECIMENOrdering Facility: [facility] Address: [address] [place] [address] Performed By: #### 5 7021-8 ####[facility]ORATORYCLIA [id number] [address] Hematocrit (Bld) [Volume fraction] 25.5 % Low 39.0-51.0 [facility] Comment on above: Order Comment: Speci men Type: BLOOD SPECIMENOrdering Facility: [facility] Address: [address] [place] [address] Performed By: #### 5 7021-8 ####[facility]ORATORYCLIA [id number] [address] [place] [facility] Hemoglobin (Bld) [Mass/Vol] 7.9 g/dL Low 13.0-17.0 [facility] Comment on above: Order Comment: Speci men Type: BLOOD SPECIMENOrdering Facility: [facility] Address: [address] [place] [address] Performed By: #### 5 7021-8 ####[facility]ORATORYCLIA [id number] [address] IMMATURE GRAN % 0.4 % Normal [facility] Comment on above: Order Comment: Speci men Type: BLOOD SPECIMENOrdering Facility: [facility] Address: [address] [place] [address] Performed By: #### 5 7021-8 ####[facility]ORATORYCLIA [id number] [address] IMMATURE GRAN ABS 0.04 k/uL Normal <0.10 [facility] Comment on above: Order Comment: Speci men Type: BLOOD SPECIMENOrdering Facility: [facility] Address: [address] [place] [address] Performed By: #### 5 7021-8 ####[facility]ORATORYCLIA [id number] [address] [place] Lymphocytes (Bld) [#/Vol] 1.66 10*3/uL Normal 1.00-4.00 [facility] Comment on above: Order Comment: Speci men Type: BLOOD SPECIMENOrdering Facility: [facility] Address: [address] [place] [address] Performed By: #### 5 7021-8 ####[facility]ORATORYCLIA [id number] [address] Lymphocytes/100 WBC (Bld) 16.2 % Normal [facility] Comment on above: Order Comment: Speci men Type: BLOOD SPECIMENOrdering Facility: [facility] Address: [address] [place] [address] Performed By: #### 5 7021-8 ####[facility]ORATORYCLIA [id number] [address] MCH (RBC) [Entitic mass] 28.5 pg Normal 26.0-34.0 [facility] Comment on above: Order Comment: Speci men Type: BLOOD SPECIMENOrdering Facility: [facility] Address: [address] [place] [address] Performed By: #### 5 7021-8 ####[facility]ORATORYCLIA [id number] [address] MCHC (RBC) [Mass/Vol] 31.0 g/dL Normal 30.5-36.0 [facility] Comment on above: Order Comment: Speci men Type: BLOOD SPECIMENOrdering Facility: [facility] Address: [address] [place] [address] Performed By: #### 5 7021-8 ####[facility]ORATORYCLIA [id number] [address] MCV (RBC) [Entitic vol] 92.1 fL Normal 80.0-100.0 [facility] Comment on above: Order Comment: Speci men Type: BLOOD SPECIMENOrdering Facility: [facility] Address: [address] [place] [address] Performed By: #### 5 7021-8 ####[facility]ORATORYCLIA [id number] [address] Monocytes (Bld) [#/Vol] 0.51 10*3/uL Normal <0.87 [facility] Comment on above: Order Comment: Speci men Type: BLOOD SPECIMENOrdering Facility: [facility] Address: [address] [place] [address] Performed By: #### 5 7021-8 ####[facility]ORATORYCLIA [id number] [address] Monocytes/100 WBC (Bld) 5.0 % Normal [facility] Comment on above: Order Comment: Speci men Type: BLOOD SPECIMENOrdering Facility: [facility] Address: [address] [place] [address] Performed By: #### 5 7021-8 ####[facility]ORATORYCLIA [id number] [address] STATES OF [place] Neutrophils (Bld) [#/Vol] 7.91 10*3/uL High 1.45-7.50 [facility] Comment on above: Order Comment: Speci men Type: BLOOD SPECIMENOrdering Facility: [facility] Address: [address] [place] [address] Performed By: #### 5 7021-8 ####[facility]ORATORYCLIA [id number] [address] OF [place] Neutrophils/100 WBC (Bld) 76.9 % Normal [facility] Comment on above: Order Comment: Speci men Type: BLOOD SPECIMENOrdering Facility: [facility] Address: [address] [place] [address] Performed By: #### 5 7021-8 ####[facility] LABORATORYCLIA [id number] [address] [place] Nucleated RBC (Bld) [#/Vol] 10*3/uL Normal <0.01 [facility] Comment on above: Order Comment: Speci men Type: BLOOD SPECIMENOrdering Facility: [facility] Address: [address] [place] [address] Performed By: #### 5 7021-8 ####[facility] LABORATORYCLIA [id number] [address] [place] Nucleated RBC/100 WBC (Bld) [Ratio] 0.0 /100 WBC Normal [facility] Comment on above: Order Comment: Speci men Type: BLOOD SPECIMENOrdering Facility: [facility] Address: [address] [place] [address] Performed By: #### 5 7021-8 ####[facility] LABORATORYCLIA [id number] [address] [place] Platelet mean volume (Bld) [Entitic vol] 10.3 fL Normal 9.0-12.7 [facility] Comment on above: Order Comment: Speci men Type: BLOOD SPECIMENOrdering Facility: [facility] Address: [address] [place] [address] Performed By: #### 5 7021-8 ####[facility] LABORATORYCLIA [id number] [place] [address] [place] Platelets (Bld) [#/Vol] 152 10*3/uL Normal 150-400 [facility] Comment on above: Order Comment: Speci men Type: BLOOD SPECIMENOrdering Facility: [facility] Address: [address] [place] [address] Performed By: #### 5 7021-8 ####[facility] LABORATORYCLIA [id number] [address] STATES OF [facility] RBC (Bld) [#/Vol] 2.77 10*6/uL Low 4.20-6.00 [facility] Comment on above: Order Comment: Speci men Type: BLOOD SPECIMENOrdering Facility: [facility] Address: [address] [place] [address] Performed By: #### 5 7021-8 ####[facility] LABORATORYCLIA [id number] [address] [place] WBC (Bld) [#/Vol] 10.27 10*3/uL Normal 3.70-11.00 [facility] Comment on above: Order Comment: Speci men Type: BLOOD SPECIMENOrdering Facility: [facility] Address: [address] [place] [address] Performed By: #### 5 7021-8 ####[facility] LABORATORYCLIA [id number] [address] [place] Magnesium SerPl-mCncon 08-10 Magnesium [Mass/Vol] 1.8 mg/dL Normal 1.7-2.3 [facility] Comment on above: Order Comment: Speci men Type: BLOOD SPECIMENOrdering Facility: [facility] Address: [facility] [place] [address] Performed By: #### 1 9123-9, 2777-1, 73608-4 ####[facility] LABORATORYCLIA [id number] [address] OF [facility] NURSING PROGon 08-10-2021 NURSING PROG Normal [facility] NURSING PROG Normal [facility] NUTRITIONon 08-10-2021 NUTRITION Normal [facility] Phosphate SerPl-mCncon 08-10 Phosphate [Mass/Vol] 3.7 mg/dL Normal 2.7-4.8 [facility] Comment on above: Order Comment: Speci men Type: BLOOD SPECIMENOrdering Facility: [facility] Address: [address] [place] [address] Performed By: #### 1 9123-9, 2777, 01505-0 ####[facility] LABORATORYCLIA [id number] [address] [place] ALLIED HEALTHon 08-09-2021 [...] men Type: BLOOD SPECIMENOrdering Facility: [facility] Address: [facility] [place] [address] Performed By: #### 2 4321-2, 86049-0, 2777-1 ####[facility] LABORATORYCLIA [id number] [address] [place] Calcium [Mass/Vol] 9.2 mg/dL Normal 8.5-10.2 [facility] Comment on above: Order Comment: Speci men Type: BLOOD SPECIMENOrdering Facility: [facility] Address: [address] [place] [address] Performed By: #### 2 4321-2, , 2776-05 ####[facility] LABORATORYCLIA [id number] [place] [address] [place] Chloride [Moles/Vol] 97 mmol/L Normal 97-105 [facility] Comment on above: Order Comment: Speci men Type: BLOOD SPECIMENOrdering Facility: [facility] Address: [address] [place] [address] Performed By: #### 2 4321-2, , 2776-05 ####[facility] LABORATORYCLIA [id number] [address] STATES [place] CO2 [Moles/Vol] 30 mmol/L Normal 22-30 [facility] Comment on above: Order Comment: Speci men Type: BLOOD SPECIMENOrdering Facility: [facility] Address: [address] [place] [address] Performed By: #### 2 4321-2, , 2776-05 ####[facility] LABORATORYCLIA [id number] [address] [place] Creatinine [Mass/Vol] 0.51 mg/dL Low 0.73-1.22 [facility] Comment on above: Order Comment: Speci men Type: BLOOD SPECIMENOrdering Facility: [facility] Address: [address] [place] [address] Performed By: #### 2 4321-2, , 2776-05 ####[facility] LABORATORYCLIA [id number] [address] ESTIMATED GLOMERULAR FILTRATION RATE 110 mL/min/1.73m??? Normal >=60 [facility] Comment on above: Order Comment: Speci men Type: BLOOD SPECIMENOrdering Facility: [facility] Address: [address] [place] [address] Result Comment: Luzmaria mated Glomerular Filtration Rate [...] 2 4321-2, , 2776-05 ####[facility] HOSPITALIA [id number] [place] [address] [place] Glucose [Mass/Vol] 106 mg/dL High 74-99 [facility] Comment on above: Order Comment: Shira feldman Type: BLOOD SPECIMENOrdering Facility: [facility] Address: [address] [place], [place] [phone] Result Comment: The [employer] [place] [employer] (ADA) provides guidance for cutoff [...] Standards of Medical Care in Diabetes 2016, [employer] [place] [employer]. Diabetes Care. 2016.39(Suppl 1). Performed By: #### 2 4321-2, , 2776-05 ####[facility] LABORATORYIA [id number] [place] [address] [place] Potassium [Moles/Vol] 4.1 mmol/L Normal 3.7-5.1 [facility] Comment on above: Order Comment: Shira feldman Type: BLOOD SPECIMENOrdering Facility: [facility] Address: [address] [place] [id number] Performed By: #### 2 4321-2, , 2776-05 ####[facility] LABORATORYCLIA [id number] [place] [address] [place] Sodium [Moles/Vol] 135 mmol/L Low 136-144 [facility] Comment on above: Order Comment: Speci men Type: BLOOD SPECIMENOrdering Facility: [facility] Address: [address] [place] [address] Performed By: #### 2 4321-2, , 2776-05 ####[facility] LABORATORYCLIA [id number] [place] [address] [place] Urea nitrogen [Mass/Vol] 26 mg/dL High 9-24 [facility] Comment on above: Order Comment: Speci men Type: BLOOD SPECIMENOrdering Facility: [facility] Address: [address] [place] [address] Performed By: #### 2 4321-2, , 2776-05 ####[facility] LABORATORYCLIA [id number] [address] [place] CBC W Auto Differential pane l (Bld)on 08-09-2021 Basophils (Bld) [#/Vol] 0.06 10*3/uL Normal <0.11 [facility] Comment on above: Order Comment: Speci men Type: BLOOD SPECIMENOrdering Facility: [facility] Address: [address] [place] [address] Performed By: #### 5 7021-8 ####[facility] LABORATORYCLIA [id number] [address] [place] Basophils/100 WBC (Bld) 0.5 % Normal [facility] Comment on above: Order Comment: Speci men Type: BLOOD SPECIMENOrdering Facility: [facility] Address: [address] [place] [address] Performed By: #### 5 7021-8 ####[facility] LABORATORYCLIA [id number] [address] [place] Differential cell count method Nom (Bld) Auto Normal [facility] Comment on above: Order Comment: Speci men Type: BLOOD SPECIMENOrdering Facility: [facility] Address: [address] [place] [address] Performed By: #### 5 7021-8 ####[facility] LABORATORYCLIA [id number] [address] [place] Eosinophils (Bld) [#/Vol] 0.42 10*3/uL Normal <0.46 [facility] Comment on above: Order Comment: Speci men Type: BLOOD SPECIMENOrdering Facility: [facility] Address: [address] [place] [address] Performed By: #### 5 7021-8 ####[facility] LABORATORYCLIA [id number] [address] [place] Eosinophils/100 WBC (Bld) 3.8 % Normal [facility] Comment on above: Order Comment: Speci men Type: BLOOD SPECIMENOrdering Facility: [facility] Address: [address] [place] [address] Performed By: #### 5 7021-8 ####[facility] LABORATORYCLIA [id number] [address] [place] Erythrocyte distribution width (RBC) [Ratio] 17.6 % High 11.5-15.0 [facility] Comment on above: Order Comment: Speci men Type: BLOOD SPECIMENOrdering Facility: [facility] Address: [address] [place] [address] Performed By: #### 5 7021-8 ####[facility] LABORATORYCLIA [id number] [address] OF [place] Hematocrit (Bld) [Volume fraction] 29.3 % Low 39.0-51.0 [facility] Comment on above: Order Comment: Speci men Type: BLOOD SPECIMENOrdering Facility: [facility] Address: [address] [place] [address] Performed By: #### 5 7021-8 ####[facility]ORATORYCLIA [id number] [address] [place] Hemoglobin (Bld) [Mass/Vol] 9.0 g/dL Low 13.0-17.0 [facility] Comment on above: Order Comment: Speci men Type: BLOOD SPECIMENOrdering Facility: [facility] Address: [address] [place] [address] Performed By: #### 5 7021-8 ####[facility] LABORATORYCLIA [id number] [address] IMMATURE GRAN % 0.5 % Normal [facility] Comment on above: Order Comment: Speci men Type: BLOOD SPECIMENOrdering Facility: [facility] Address: [address] [place] [address] Performed By: #### 5 7021-8 ####[facility] LABORATORYCLIA [id number] [address] IMMATURE GRAN ABS 0.05 k/uL Normal <0.10 [facility] Comment on above: Order Comment: Speci men Type: BLOOD SPECIMENOrdering Facility: [facility] Address: [address] [place] [address] Performed By: #### 5 7021-8 ####[facility] LABORATORYCLIA [id number] [address] [place] Lymphocytes (Bld) [#/Vol] 2.00 10*3/uL Normal 1.00-4.00 [facility] Comment on above: Order Comment: Speci men Type: BLOOD SPECIMENOrdering Facility: [facility] Address: [address] [place] [address] Performed By: #### 5 7021-8 ####[facility] LABORATORYCLIA [id number] [address] Lymphocytes/100 WBC (Bld) 18.1 % Normal [facility] Comment on above: Order Comment: Speci men Type: BLOOD SPECIMENOrdering Facility: [facility] Address: [address] [place] [address] Performed By: #### 5 7021-8 ####[facility] LABORATORYCLIA [id number] [address] MCH (RBC) [Entitic mass] 28.1 pg Normal 26.0-34.0 [facility] Comment on above: Order Comment: Speci men Type: BLOOD SPECIMENOrdering Facility: [facility] Address: [address] [place] [address] Performed By: #### 5 7021-8 ####[facility] LABORATORYCLIA [id number] [address] STATES [facility] MCHC (RBC) [Mass/Vol] 30.7 g/dL Normal 30.5-36.0 [facility] Comment on above: Order Comment: Speci men Type: BLOOD SPECIMENOrdering Facility: [facility] Address: [address] [place] [address] Performed By: #### 5 7021-8 ####[facility] LABORATORYCLIA [id number] [address] MCV (RBC) [Entitic vol] 91.6 fL Normal 80.0-100.0 [facility] Comment on above: Order Comment: Speci men Type: BLOOD SPECIMENOrdering Facility: [facility] Address: [address] [place] [address] Performed By: #### 5 7021-8 ####[facility] LABORATORYCLIA [id number] [address] Monocytes (Bld) [#/Vol] 0.68 10*3/uL Normal <0.87 [facility] Comment on above: Order Comment: Speci men Type: BLOOD SPECIMENOrdering Facility: [facility] Address: [address] [place] [address] Performed By: #### 5 7021-8 ####[facility] LABORATORYCLIA [id number] [address] Monocytes/100 WBC (Bld) 6.2 % Normal [facility] Comment on above: Order Comment: Speci men Type: BLOOD SPECIMENOrdering Facility: [facility] Address: [address] [place] [address] Performed By: #### 5 7021-8 ####[facility] LABORATORYCLIA [id number] [address] [place] Neutrophils (Bld) [#/Vol] 7.82 10*3/uL High 1.45-7.50 [facility] Comment on above: Order Comment: Speci men Type: BLOOD SPECIMENOrdering Facility: [facility] Address: [address] [place] [address] Performed By: #### 5 7021-8 ####[facility] LABORATORYCLIA [id number] [address] [place] Neutrophils/100 WBC (Bld) 70.9 % Normal [facility] Comment on above: Order Comment: Speci men Type: BLOOD SPECIMENOrdering Facility: [facility] Address: [address] [place] [address] Performed By: #### 5 7021-8 ####[facility] LABORATORYCLIA [id number] [address] [place] Nucleated RBC (Bld) [#/Vol] 10*3/uL Normal <0.01 [facility] Comment on above: Order Comment: Speci men Type: BLOOD SPECIMENOrdering Facility: [facility] Address: [address] [place] [address] Performed By: #### 5 7021-8 ####[facility] LABORATORYCLIA [id number] [address] [place] Nucleated RBC/100 WBC (Bld) [Ratio] 0.0 /100 WBC Normal [facility] Comment on above: Order Comment: Speci men Type: BLOOD SPECIMENOrdering Facility: [facility] Address: [address] [place] [address] Performed By: #### 5 7021-8 ####[facility]ORATORYCLIA [id number] [address] [place] Platelet mean volume (Bld) [Entitic vol] 10.1 fL Normal 9.0-12.7 [facility] Comment on above: Order Comment: Speci men Type: BLOOD SPECIMENOrdering Facility: [facility] Address: [address] [place] [address] Performed By: #### 5 7021-8 ####[facility] LABORATORYCLIA [id number] [place] [address] [place] Platelets (Bld) [#/Vol] 160 10*3/uL Normal 150-400 [facility] Comment on above: Order Comment: Speci men Type: BLOOD SPECIMENOrdering Facility: [facility] Address: [address] [place] [address] Performed By: #### 5 7021-8 ####[facility] LABORATORYCLIA [id number] [place] [address] [place] RBC (Bld) [#/Vol] 3.20 10*6/uL Low 4.20-6.00 [facility] Comment on above: Order Comment: Speci men Type: BLOOD SPECIMENOrdering Facility: [facility] Address: [address] [place] [address] Performed By: #### 5 7021-8 ####[facility] LABORATORYCLIA [id number] [place] [address] [place] WBC (Bld) [#/Vol] 11.03 10*3/uL High 3.70-11.00 [facility] Comment on above: Order Comment: Speci men Type: BLOOD SPECIMENOrdering Facility: [facility] Address: [address] [place] [address] Performed By: #### 5 7021-8 ####[facility] LABORATORYCLIA [id number] [address] [place] CONSULT PROGon 08-09-2021 CONSULT PROG Normal [facility] CT BRAIN WO IVCONon 08-10-19 CT BRAIN WO IVCON Normal [facility] CT BRAIN WO IVCON Normal [facility] Magnesium SerPl-mCncon 08-09 Magnesium [Mass/Vol] 2.0 mg/dL Normal 1.7-2.3 [facility] Comment on above: Order Comment: Shira feldman Type: BLOOD SPECIMENOrdering Facility: [facility] Address: [address] [place] [address] Performed By: #### 2 4321-2, 68118-8, 2777-1 ####[facility] LABORATORYCLIA [id number] [address] OF [facility] NURSING PROGon 08-09-2021 NURSING PROG Normal [facility] OPERATIVE NOon 08-09-2021 OPERATIVE NO Normal [facility] PT panel Coag (PPP)on 2021 INR Coag (PPP) [Relative time] 1.1 {INR} Normal 0.9-1.3 [facility] Comment on above: Order Comment: Shira feldman Type: BLOOD SPECIMENOrdering Facility: [facility] Address: [address] [place] [address] Result Comment: Yris min K Antagonist (VKA) Therapeutic Range: INR 2 to 3 (Target INR of 2.5)Note: For patients treated with VKA drugs, such as warfarin, the [employer] 2012 Guideline recommends [...] 70: 252-289 Performed By: #### 3 4528-0, 06816-2 ####[facility] LABORATORYCLIA [id number] [address] OF [place] PT Coag (PPP) [Time] 11.7 s Normal 9.7-13.0 [facility] Comment on above: Order Comment: Speci men Type: BLOOD SPECIMENOrdering Facility: [facility] Address: [address] [place] [address] Performed By: #### 3 4528-0, 53716-5 ####[facility] LABORATORYCLIA [id number] [address] Phosphate SerPl-mCncon 08-09 Phosphate [Mass/Vol] 4.0 mg/dL Normal 2.7-4.8 [facility] Comment on above: Order Comment: Speci men Type: BLOOD SPECIMENOrdering Facility: [facility] Address: [address] [place] [address] Performed By: #### 2 4321-2, 58383-8, 2777-1 ####[facility] LABORATORYCLIA [id number] [address] THERAPY NTon 08-09-2021 THERAPY NT Normal [facility] THERAPY NT Normal [facility] TYPE AND SCREENon 08-09-2021 ABO O Normal [facility] Comment on above: Order Comment: Speci men Type: BLOOD SPECIMENOrdering Facility: [facility] Address: [address] [place] [address] Performed By: #### T SCR ####[facility] BLOOD BANKCLIA [id number] [address] OF [facility] HISTORICAL AB SCR STATUS Negative Normal [facility] Comment on above: Order Comment: Speci men Type: BLOOD SPECIMENOrdering Facility: [facility] Address: [address] [place] [address] Performed By: #### T SCR ####[facility] BLOOD BANKCLIA [id number] [address] Rh Nom (Bld) Positive Normal [facility] Comment on above: Order Comment: Speci men Type: BLOOD SPECIMENOrdering Facility: [facility] Address: [address] [place] [address] Performed By: #### T SCR ####[facility] BLOOD BANKCLIA [id number] [address] TYPE AND SCREEN EXPIRATION 08/12/2021 23:59 Normal [facility] Comment on above: Order Comment: Speci men Type: BLOOD SPECIMENOrdering Facility: [facility] Address: [address] [place] [address] Performed By: #### T SCR ####[facility] BLOOD BANKCLIA [id number] [address] XR ABD 2V SUPINE W UPR/DECUB [...] Coag (PPP) [Time] 26.8 s Normal 23.0-32.4 [facility] Comment on above: Order Comment: Speci men Type: BLOOD SPECIMENOrdering Facility: [facility] Address: [address] [place] [address] Performed By: #### 3 4528-0, 62353-2 ####[facility] LABORATORYCLIA [id number] [address] CASE MANAGEMon 08-08-2021 CASE MANAGEM Normal [facility] CBC W Auto Differential pane l (Bld)on 08-08-2021 Basophils (Bld) [#/Vol] 0.05 10*3/uL Normal <0.11 [facility] Comment on above: Order Comment: Speci men Type: BLOOD SPECIMENOrdering Facility: [facility] Address: [address] [place] [address] Performed By: #### 5 7021-8 ####[facility]ORATORYCLIA [id number] [address] STATES [facility] Basophils/100 WBC (Bld) 0.5 % Normal [facility] Comment on above: Order Comment: Speci men Type: BLOOD SPECIMENOrdering Facility: [facility] Address: [address] [place] [address] Performed By: #### 5 7021-8 ####[facility] LABORATORYCLIA [id number] [address] [place] Differential cell count method Nom (Bld) Auto Normal [facility] Comment on above: Order Comment: Speci men Type: BLOOD SPECIMENOrdering Facility: [facility] Address: [address] [place] [address] Performed By: #### 5 7021-8 ####[facility] LABORATORYCLIA [id number] [address] [place] Eosinophils (Bld) [#/Vol] 0.17 10*3/uL Normal <0.46 [facility] Comment on above: Order Comment: Speci men Type: BLOOD SPECIMENOrdering Facility: [facility] Address: [address] [place] [address] Performed By: #### 5 7021-8 ####[facility] LABORATORYCLIA [id number] [address] Eosinophils/100 WBC (Bld) 1.6 % Normal [facility] Comment on above: Order Comment: Speci men Type: BLOOD SPECIMENOrdering Facility: [facility] Address: [address] [place] [address] Performed By: #### 5 7021-8 ####[facility] LABORATORYCLIA [id number] [address] [place] Erythrocyte distribution width (RBC) [Ratio] 17.8 % High 11.5-15.0 [facility] Comment on above: Order Comment: Speci men Type: BLOOD SPECIMENOrdering Facility: [facility] Address: [address] [place] [address] Performed By: #### 5 7021-8 ####[facility] LABORATORYCLIA [id number] [address] Hematocrit (Bld) [Volume fraction] 29.6 % Low 39.0-51.0 [facility] Comment on above: Order Comment: Speci men Type: BLOOD SPECIMENOrdering Facility: [facility] Address: [address] [place] [address] Performed By: #### 5 7021-8 ####[facility] LABORATORYCLIA [id number] [address] Hemoglobin (Bld) [Mass/Vol] 9.0 g/dL Low 13.0-17.0 [facility] Comment on above: Order Comment: Speci men Type: BLOOD SPECIMENOrdering Facility: [facility] Address: [address] [place] [address] Performed By: #### 5 7021-8 ####[facility] LABORATORYCLIA [id number] [address] IMMATURE GRAN % 0.5 % Normal [facility] Comment on above: Order Comment: Speci men Type: BLOOD SPECIMENOrdering Facility: [facility] Address: [address] [place] [address] Performed By: #### 5 7021-8 ####[facility] LABORATORYCLIA [id number] [address] IMMATURE GRAN ABS 0.05 k/uL Normal <0.10 [facility] Comment on above: Order Comment: Speci men Type: BLOOD SPECIMENOrdering Facility: [facility] Address: [address] [place] [address] Performed By: #### 5 7021-8 ####[facility] LABORATORYCLIA [id number] [address] [place] Lymphocytes (Bld) [#/Vol] 1.93 10*3/uL Normal 1.00-4.00 [facility] Comment on above: Order Comment: Speci men Type: BLOOD SPECIMENOrdering Facility: [facility] Address: [address] [place] [address] Performed By: #### 5 7021-8 ####[facility] LABORATORYCLIA [id number] [address] Lymphocytes/100 WBC (Bld) 18.2 % Normal [facility] Comment on above: Order Comment: Speci men Type: BLOOD SPECIMENOrdering Facility: [facility] Address: [address] [place] [address] Performed By: #### 5 7021-8 ####[facility] LABORATORYCLIA [id number] [address] MCH (RBC) [Entitic mass] 28.1 pg Normal 26.0-34.0 [facility] Comment on above: Order Comment: Speci men Type: BLOOD SPECIMENOrdering Facility: [facility] Address: [address] [place] [address] Performed By: #### 5 7021-8 ####[facility] LABORATORYCLIA [id number] [address] MCHC (RBC) [Mass/Vol] 30.4 g/dL Low 30.5-36.0 [facility] Comment on above: Order Comment: Speci men Type: BLOOD SPECIMENOrdering Facility: [facility] Address: [address] [place] [address] Performed By: #### 5 7021-8 ####[facility] LABORATORYCLIA [id number] [address] STATES [facility] MCV (RBC) [Entitic vol] 92.5 fL Normal 80.0-100.0 [facility] Comment on above: Order Comment: Speci men Type: BLOOD SPECIMENOrdering Facility: [facility] Address: [address] [place] [address] Performed By: #### 5 7021-8 ####[facility] LABORATORYCLIA [id number] [place] [address] [place] Monocytes (Bld) [#/Vol] 0.75 10*3/uL Normal <0.87 [facility] Comment on above: Order Comment: Speci men Type: BLOOD SPECIMENOrdering Facility: [facility] Address: [address] [place] [address] Performed By: #### 5 7021-8 ####[facility] LABORATORYCLIA [id number] [place] [address] [place] Monocytes/100 WBC (Bld) 7.1 % Normal [facility] Comment on above: Order Comment: Speci men Type: BLOOD SPECIMENOrdering Facility: [facility] Address: [address] [place] [address] Performed By: #### 5 7021-8 ####[facility] LABORATORYCLIA [id number] [place] [address] [place] Neutrophils (Bld) [#/Vol] 7.65 10*3/uL High 1.45-7.50 [facility] Comment on above: Order Comment: Speci men Type: BLOOD SPECIMENOrdering Facility: [facility] Address: [address] [place] [address] Performed By: #### 5 7021-8 ####[facility] LABORATORYCLIA [id number] [address] [place] Neutrophils/100 WBC (Bld) 72.1 % Normal [facility] Comment on above: Order Comment: Speci men Type: BLOOD SPECIMENOrdering Facility: [facility] Address: [address] [place] [address] Performed By: #### 5 7021-8 ####[facility] LABORATORYCLIA [id number] [place] [address] [place] Nucleated RBC (Bld) [#/Vol] 10*3/uL Normal <0.01 [facility] Comment on above: Order Comment: Speci men Type: BLOOD SPECIMENOrdering Facility: [facility] Address: [address] [place] [address] Performed By: #### 5 7021-8 ####[facility] LABORATORYCLIA [id number] [address] Nucleated RBC/100 WBC (Bld) [Ratio] 0.0 /100 WBC Normal [facility] Comment on above: Order Comment: Speci men Type: BLOOD SPECIMENOrdering Facility: [facility] Address: [address] [place] [address] Performed By: #### 5 7021-8 ####[facility] LABORATORYCLIA [id number] [address] [place] Platelet mean volume (Bld) [Entitic vol] 9.8 fL Normal 9.0-12.7 [facility] Comment on above: Order Comment: Speci men Type: BLOOD SPECIMENOrdering Facility: [facility] Address: [address] [place] [address] Performed By: #### 5 7021-8 ####[facility] LABORATORYCLIA [id number] [address] [place] Platelets (Bld) [#/Vol] 175 10*3/uL Normal 150-400 [facility] Comment on above: Order Comment: Speci men Type: BLOOD SPECIMENOrdering Facility: [facility] Address: [address] [place] [address] Performed By: #### 5 7021-8 ####[facility] LABORATORYCLIA [id number] [address] [place] RBC (Bld) [#/Vol] 3.20 10*6/uL Low 4.20-6.00 [facility] Comment on above: Order Comment: Speci men Type: BLOOD SPECIMENOrdering Facility: [facility] Address: [address] [place] [address] Performed By: #### 5 7021-8 ####[facility] LABORATORYCLIA [id number] [address] [place] WBC (Bld) [#/Vol] 10.60 10*3/uL Normal 3.70-11.00 [facility] Comment on above: Order Comment: Speci men Type: BLOOD SPECIMENOrdering Facility: [facility] Address: [address] [place] [address] Performed By: #### 5 7021-8 ####[facility] LABORATORYCLIA [id number] [address] [place] CT BRAIN WO IVCONon 08-09-19 CT BRAIN WO IVCON Normal [facility] NURSING PROGon 08-08-2021 NURSING PROG Normal [facility] Prealbumin [Mass/Vol]on Prealbumin Nephelometry [Mass/Vol] 29 mg/dL Normal - [facility] Comment on above: Order Comment: Speci men Type: BLOOD SPECIMENOrdering Facility: [facility] Address: [address] [place] [address] Performed By: #### 1 4338-8 ####[facility] LABORATORYCLIA [id number] [address] OF [facility] SARS-CoV-2 RNA Resp Ql MEGAN+p robeon 08-08-2021 SARS-CoV-2 (COVID-19) RNA MEGAN+probe Ql (Resp) COVID 19 RESULT: SARS-CoV-2 (Agent of COVID-19) Not Detected by RT-PCR or equivalent method. This test has been authorized by FDA under an Emergency Use Authorization (EUA). Normal [facility] Comment on above: Performed By: #### 9 4500-6 ####[facility] LABORATORYCLIA [id number] [place] [address] [place] ALLIED HEALTHon 08-07-2021 ALLIED HEALTH Normal [facility] Basic metabolic 2000 panelon 08-07-2021 Anion gap [Moles/Vol] 9 mmol/L Normal 9-18 [facility] Comment on above: Order Comment: Speci men Type: BLOOD SPECIMENOrdering Facility: [facility] Address: [address] [place] [address] Performed By: #### 2 4321-2, 2776-05, , HFP ####[facility] LABORATORYCLIA [id number] [place] [address] [place] Calcium [Mass/Vol] 9.4 mg/dL Normal 8.5-10.2 [facility] Comment on above: Order Comment: Speci men Type: BLOOD SPECIMENOrdering Facility: [facility] Address: [address] [place] [address] Performed By: #### 2 4321-2, 2776-05, , HFP ####[facility] LABORATORYCLIA [id number] [place] [address] [place] Chloride [Moles/Vol] 98 mmol/L Normal 97-105 [facility] Comment on above: Order Comment: Speci men Type: BLOOD SPECIMENOrdering Facility: [facility] Address: [address] [place] [address] Performed By: #### 2 4321-2, 2776-05, , HFP ####[facility] LABORATORYCLIA [id number] [place] [address] [place] CO2 [Moles/Vol] 29 mmol/L Normal 22-30 [facility] Comment on above: Order Comment: Speci men Type: BLOOD SPECIMENOrdering Facility: [facility] Address: [address] [place] [address] Performed By: #### 2 4321-2, 2776-05, , HFP ####[facility] LABORATORYCLIA [id number] [place] [address] [place] Creatinine [Mass/Vol] 0.67 mg/dL Low 0.73-1.22 [facility] Comment on above: Order Comment: Speci men Type: BLOOD SPECIMENOrdering Facility: [facility] Address: [address] [place] [address] Performed By: #### 2 4321-2, 2776-05, , HFP ####[facility] LABORATORYCLIA [id number] [address] [place] ESTIMATED GLOMERULAR FILTRATION RATE 101 mL/min/1.73m??? Normal >=60 [facility] Comment on above: Order Comment: Shira feldman Type: BLOOD SPECIMENOrdering Facility: [facility] Address: [address] [place], [place] [address] Result Comment: Luzmaria mated Glomerular Filtration Rate [...] Performed By: #### 2 4321-2, 2777-, , [facility] ####[facility] LABORATORYCLIA [id number] [place] [address] [place] Glucose [Mass/Vol] 117 mg/dL High 74-99 [facility] Comment on above: Order Comment: Shira feldman Type: BLOOD SPECIMENOrdering Facility: [facility] Address: [address] [place] [address] Result Comment: The [employer] [place] [employer] (ADA) provides guidance for cutoff [...] Standards of Medical Care in Diabetes 2016, [employer] [place] [employer]. Diabetes Care. 2016.39(Suppl 1). Performed By: #### 2 4321-2, 2777-, , [facility] ####[facility] LABORATORYCLIA [id number] [place] [address] [place] Potassium [Moles/Vol] 4.1 mmol/L Normal 3.7-5.1 [facility] Comment on above: Order Comment: Speci men Type: BLOOD SPECIMENOrdering Facility: [facility] Address: [address] [place], [place] [address] Performed By: #### 2 4321-2, 2776-05, , [facility] ####[facility] LABORATORYCLIA [id number] [place] [address] [place] Sodium [Moles/Vol] 136 mmol/L Normal 136-144 [facility] Comment on above: Order Comment: Speci men Type: BLOOD SPECIMENOrdering Facility: [facility] Address: [address] [place], [place] [address] Performed By: #### 2 4321-2, 2776-05, , [facility] ####[facility] LABORATORYCLIA [id number] [place] [address] [place] Urea nitrogen [Mass/Vol] 31 mg/dL High 9-24 [facility] Comment on above: Order Comment: Speci men Type: BLOOD SPECIMENOrdering Facility: [facility] Address: [address] [place] [address] Performed By: #### 2 4321-2, 2776-05, , [facility] ####[facility] LABORATORYCLIA [id number] [address] [place] CBC W Auto Differential pane l (Bld)on 08-07-2021 Basophils (Bld) [#/Vol] 0.03 10*3/uL Normal <0.11 [facility] Comment on above: Order Comment: Speci men Type: BLOOD SPECIMENOrdering Facility: [facility] Address: [address] [place] [address] Performed By: #### 5 7021-8 ####[facility] LABORATORYCLIA [id number] [address] [place] Basophils/100 WBC (Bld) 0.3 % Normal [facility] Comment on above: Order Comment: Speci men Type: BLOOD SPECIMENOrdering Facility: [facility] Address: [address] [place] [place] [address] Performed By: #### 5 7021-8 ####[facility] LABORATORYCLIA [id number] [address] Differential cell count method Nom (Bld) Auto Normal [facility] Comment on above: Order Comment: Speci men Type: BLOOD SPECIMENOrdering Facility: [facility] Address: [address] [place] [address] Performed By: #### 5 7021-8 ####[facility] LABORATORYCLIA [id number] [address] [place] Eosinophils (Bld) [#/Vol] 0.16 10*3/uL Normal <0.46 [facility] Comment on above: Order Comment: Speci men Type: BLOOD SPECIMENOrdering Facility: [facility] Address: [address] [place] [address] Performed By: #### 5 7021-8 ####[facility] LABORATORYCLIA [id number] [address] Eosinophils/100 WBC (Bld) 1.6 % Normal [facility] Comment on above: Order Comment: Speci men Type: BLOOD SPECIMENOrdering Facility: [facility] Address: [address] [place] [address] Performed By: #### 5 7021-8 ####[facility] LABORATORYCLIA [id number] [address] Erythrocyte distribution width (RBC) [Ratio] 18.1 % High 11.5-15.0 [facility] Comment on above: Order Comment: Speci men Type: BLOOD SPECIMENOrdering Facility: [facility] Address: [address] [place] [address] Performed By: #### 5 7021-8 ####[facility] LABORATORYCLIA [id number] [address] [place] Hematocrit (Bld) [Volume fraction] 30.6 % Low 39.0-51.0 [facility] Comment on above: Order Comment: Speci men Type: BLOOD SPECIMENOrdering Facility: [facility] Address: [address] [place] [address] Performed By: #### 5 7021-8 ####[facility] LABORATORYCLIA [id number] [address] [place] Hemoglobin (Bld) [Mass/Vol] 9.4 g/dL Low 13.0-17.0 [facility] Comment on above: Order Comment: Speci men Type: BLOOD SPECIMENOrdering Facility: [facility] Address: [address] [place] [address] Performed By: #### 5 7021-8 ####[facility] LABORATORYCLIA [id number] [address] IMMATURE GRAN % 0.4 % Normal [facility] Comment on above: Order Comment: Speci men Type: BLOOD SPECIMENOrdering Facility: [facility] Address: [address] [place] [address] Performed By: #### 5 7021-8 ####[facility] LABORATORYCLIA [id number] [address] IMMATURE GRAN ABS 0.04 k/uL Normal <0.10 [facility] Comment on above: Order Comment: Speci men Type: BLOOD SPECIMENOrdering Facility: [facility] Address: [address] [place] [address] Performed By: #### 5 7021-8 ####[facility] LABORATORYCLIA [id number] [address] [place] Lymphocytes (Bld) [#/Vol] 2.05 10*3/uL Normal 1.00-4.00 [facility] Comment on above: Order Comment: Speci men Type: BLOOD SPECIMENOrdering Facility: [facility] Address: [address] [place] [address] Performed By: #### 5 7021-8 ####[facility] LABORATORYCLIA [id number] [address] Lymphocytes/100 WBC (Bld) 20.2 % Normal [facility] Comment on above: Order Comment: Speci men Type: BLOOD SPECIMENOrdering Facility: [facility] Address: [address] [place] [address] Performed By: #### 5 7021-8 ####[facility] LABORATORYCLIA [id number] [address] STATES OF [facility] MCH (RBC) [Entitic mass] 28.8 pg Normal 26.0-34.0 [facility] Comment on above: Order Comment: Speci men Type: BLOOD SPECIMENOrdering Facility: [facility] Address: [address] [place] [address] Performed By: #### 5 7021-8 ####[facility] LABORATORYCLIA [id number] [address] OF [facility] MCHC (RBC) [Mass/Vol] 30.7 g/dL Normal 30.5-36.0 [facility] Comment on above: Order Comment: Speci men Type: BLOOD SPECIMENOrdering Facility: [facility] Address: [address] [place] [address] Performed By: #### 5 7021-8 ####[facility] LABORATORYCLIA [id number] [address] MCV (RBC) [Entitic vol] 93.9 fL Normal 80.0-100.0 [facility] Comment on above: Order Comment: Speci men Type: BLOOD SPECIMENOrdering Facility: [facility] Address: [address] [place] [address] Performed By: #### 5 7021-8 ####[facility] LABORATORYCLIA [id number] [address] Monocytes (Bld) [#/Vol] 0.64 10*3/uL Normal <0.87 [facility] Comment on above: Order Comment: Speci men Type: BLOOD SPECIMENOrdering Facility: [facility] Address: [address] [place] [address] Performed By: #### 5 7021-8 ####[facility] LABORATORYCLIA [id number] [address] [place] Monocytes/100 WBC (Bld) 6.3 % Normal [facility] Comment on above: Order Comment: Speci men Type: BLOOD SPECIMENOrdering Facility: [facility] Address: [address] [place] [address] Performed By: #### 5 7021-8 ####[facility] LABORATORYCLIA [id number] [address] [place] Neutrophils (Bld) [#/Vol] 7.22 10*3/uL Normal 1.45-7.50 [facility] Comment on above: Order Comment: Speci men Type: BLOOD SPECIMENOrdering Facility: [facility] Address: [address] [place] [address] Performed By: #### 5 7021-8 ####[facility]ORATORYCLIA [id number] [address] Neutrophils/100 WBC (Bld) 71.2 % Normal [facility] Comment on above: Order Comment: Speci men Type: BLOOD SPECIMENOrdering Facility: [facility] Address: [address] [place] [address] Performed By: #### 5 7021-8 ####[facility]ORATORYCLIA [id number] [address] [place] Nucleated RBC (Bld) [#/Vol] 10*3/uL Normal <0.01 [facility] Comment on above: Order Comment: Speci men Type: BLOOD SPECIMENOrdering Facility: [facility] Address: [address] [place] [address] Performed By: #### 5 7021-8 ####[facility]ORATORYCLIA [id number] [address] [place] Nucleated RBC/100 WBC (Bld) [Ratio] 0.0 /100 WBC Normal [facility] Comment on above: Order Comment: Speci men Type: BLOOD SPECIMENOrdering Facility: [facility] Address: [address] [place], [place] [address] Performed By: #### 5 7021-8 ####[facility] LABORATORYCLIA [id number] [address] Platelet mean volume (Bld) [Entitic vol] 9.9 fL Normal 9.0-12.7 [facility] Comment on above: Order Comment: Speci men Type: BLOOD SPECIMENOrdering Facility: [facility] Address: [address] [place] [address] Performed By: #### 5 7021-8 ####[facility] LABORATORYCLIA [id number] [address] [place] Platelets (Bld) [#/Vol] 227 10*3/uL Normal 150-400 [facility] Comment on above: Order Comment: Speci men Type: BLOOD SPECIMENOrdering Facility: [facility] Address: [address] [place] [address] Performed By: #### 5 7021-8 ####[facility]ORATORYCLIA [id number] [address] [place] RBC (Bld) [#/Vol] 3.26 10*6/uL Low 4.20-6.00 [facility] Comment on above: Order Comment: Speci men Type: BLOOD SPECIMENOrdering Facility: [facility] Address: [address] [place], [place] [address] Performed By: #### 5 7021-8 ####[facility] LABORATORYCLIA [id number] [address] [place] WBC (Bld) [#/Vol] 10.14 10*3/uL Normal 3.70-11.00 [facility] Comment on above: Order Comment: Speci men Type: BLOOD SPECIMENOrdering Facility: [facility] Address: [address] [place] [address] Performed By: #### 5 7021-8 ####[facility]ORATORYCLIA [id number] [address] BRAIN WO IVCONon 08-08-19 CT BRAIN WO IVCON Normal [facility] HEPATIC FUNCTION PNLon 08-07 Albumin [Mass/Vol] 3.6 g/dL Low 3.9-4.9 [facility] Comment on above: Order Comment: Speci men Type: BLOOD SPECIMENOrdering Facility: [facility] Address: [address] [place] [address] Performed By: #### 2 4321-2, 2776-, , HFP ####[facility]ORATORYCLIA [id number] [address] ALP [Catalytic activity/Vol] 124 U/L High 38-113 [facility] Comment on above: Order Comment: Speci men Type: BLOOD SPECIMENOrdering Facility: [facility] Address: [address] [place] [address] Performed By: #### 2 4321-2, 2776-05, , HFP ####[facility]ORATORYCLIA [id number] [address] [place] [facility] ALT With P-5'-P [Catalytic activity/Vol] 29 U/L Normal 10-54 [facility] Comment on above: Order Comment: Speci men Type: BLOOD SPECIMENOrdering Facility: [facility] Address: [address] [place] [address] Performed By: #### 2 4321-2, 2776-05, , HFP ####[facility]ORATORYCLIA [id number] [address] AST With P-5'-P [Catalytic activity/Vol] 18 U/L Normal 14-40 [facility] Comment on above: Order Comment: Speci men Type: BLOOD SPECIMENOrdering Facility: [facility] Address: [address] [place] [address] Performed By: #### 2 4321-2, 277-, , HFP ####[facility]ORATORYCLIA [id number] [address] [place] Bilirubin [Mass/Vol] 0.3 mg/dL Normal 0.2-1.3 [facility] Comment on above: Order Comment: Speci men Type: BLOOD SPECIMENOrdering Facility: [facility] Address: [address] [place] [address] Performed By: #### 2 4321-2, 2777-, , HFP ####[facility]ORATORYCLIA [id number] [address] [place] Bilirubin.conjugated [Mass/Vol] mg/dL Normal <0.2 [facility] Comment on above: Order Comment: Speci men Type: BLOOD SPECIMENOrdering Facility: [facility] Address: [address] [place] [address] Performed By: #### 2 4321-2, 27711-04, , HFP ####[facility]ORATORYCLIA [id number] [address] [place] [facility] Protein [Mass/Vol] 6.4 g/dL Normal 6.3-8.0 [facility] Comment on above: Order Comment: Speci men Type: BLOOD SPECIMENOrdering Facility: [facility] Address: [address] [place] [address] Performed By: #### 2 4321-2, 27711-04, , HFP ####[facility]ORATORYCLIA [id number] [address] [place] Magnesium SerPl-mCncon 08-07 Magnesium [Mass/Vol] 2.3 mg/dL Normal 1.7-2.3 [facility] Comment on above: Order Comment: Speci men Type: BLOOD SPECIMENOrdering Facility: [facility] Address: [address] [place] [address] Performed By: #### 2 4321-2, 277-1, , HFP ####[facility]ORATORYCLIA [id number] [address] [place] NURSING PROGon 08-07-2021 NURSING PROG Normal [facility] Phosphate SerPl-mCncon 08-07 Phosphate [Mass/Vol] 3.5 mg/dL Normal 2.7-4.8 [facility] Comment on above: Order Comment: Speci men Type: BLOOD SPECIMENOrdering Facility: [facility] Address: [address] [place] [address] Performed By: #### 2 4321-2, 277-1, , HFP ####[facility] LABORATORYCLIA [id number] [address] [place] ANES POSTPROC EVALon 022 ANES POSTPROC EVAL Normal [facility] Basic metabolic 2000 panelon 08-06-2021 Anion gap [Moles/Vol] 11 mmol/L Normal 9-18 [facility] Comment on above: Order Comment: Speci men Type: BLOOD SPECIMENOrdering Facility: [facility] Address: [address] [place] [address] Performed By: #### 2 4321-2, 2776-05, ####[facility] LABORATORYCLIA [id number] [place] [address] [place] Calcium [Mass/Vol] 8.2 mg/dL Low 8.5-10.2 [facility] Comment on above: Order Comment: Speci men Type: BLOOD SPECIMENOrdering Facility: [facility] Address: [address] [place] [address] Performed By: #### 2 4321-2, 2776-, ####[facility]ORATORYCLIA [id number] [place] [address] [place] Chloride [Moles/Vol] 100 mmol/L Normal 97-105 [facility] Comment on above: Order Comment: Speci men Type: BLOOD SPECIMENOrdering Facility: [facility] Address: [address] [place] [address] Performed By: #### 2 4321-2, 2776-05, ####[facility]ORATORYCLIA [id number] [place] [address] [place] CO2 [Moles/Vol] 23 mmol/L Normal 22-30 [facility] Comment on above: Order Comment: Speci men Type: BLOOD SPECIMENOrdering Facility: [facility] Address: [address] [place] [address] Performed By: #### 2 4321-2, 2776-05, ####[facility]ORATORYCLIA [id number] [place] [address] [place] [facility] Creatinine [Mass/Vol] 0.55 mg/dL Low 0.73-1.22 [facility] Comment on above: Order Comment: Speci men Type: BLOOD SPECIMENOrdering Facility: [facility] Address: [address] [place] [address] Performed By: #### 2 432-2, 2776-05, ####[facility]ITAL[facility] [id number] [address] [place] [facility] ESTIMATED GLOMERULAR FILTRATION RATE 107 mL/min/1.73m??? Normal >=60 [facility] Comment on above: Order Comment: Speci men Type: BLOOD SPECIMENOrdering Facility: [facility] Address: [address] [place] [address] Result Comment: Luzmaria mated Glomerular Filtration Rate [...] 2 4321-2, 2776-05, ####[facility]ORATORYCLIA [id number] [place] [address] [place] Glucose [Mass/Vol] 275 mg/dL High 74-99 [facility] Comment on above: Order Comment: Speci men Type: BLOOD SPECIMENOrdering Facility: [facility] Address: [address] [place], [place] [phone] Result Comment: The [employer] [place] [employer] (ADA) provides guidance for cutoff [...] Standards of Medical Care in Diabetes 2016, [employer] [place] [employer]. Diabetes Care. 2016.39(Suppl 1). Performed By: #### 2 4321-2, 2776-05, ####[facility]ORATORYCLIA [id number] [place] [address] [place] Potassium [Moles/Vol] 3.6 mmol/L Low 3.7-5.1 [facility] Comment on above: Order Comment: Shira feldman Type: BLOOD SPECIMENOrdering Facility: [facility] Address: [address] [place], [place] [address] Performed By: #### 2 4321-2, 2776-05, ####[facility]ORATORYCLIA [id number] [place] [address] [place] Sodium [Moles/Vol] 134 mmol/L Low 136-144 [facility] Comment on above: Order Comment: Johni men Type: BLOOD SPECIMENOrdering Facility: [facility] Address: [address] [id number] Performed By: #### 2 4321-2, 2776-05, ####[facility]ORATORYCLIA [id number] [place] [address] [place] Urea nitrogen [Mass/Vol] 29 mg/dL High 9-24 [facility] Comment on above: Order Comment: Speci men Type: BLOOD SPECIMENOrdering Facility: [facility] Address: [address] [place] [address] Performed By: #### 2 4321-2, 2777-1, 91626-5 ####[facility]ATORYCLIA [id number] [address] [place] [facility] CBC W Auto Differential pane l (Bld)on 08-06-2021 Basophils (Bld) [#/Vol] 0.03 10*3/uL Normal <0.11 [facility] Comment on above: Order Comment: Speci men Type: BLOOD SPECIMENOrdering Facility: [facility] Address: [address] [place] [address] Performed By: #### 5 7021-8 ####[facility] LABORATORYCLIA [id number] [address] [place] Basophils/100 WBC (Bld) 0.3 % Normal [facility] Comment on above: Order Comment: Speci men Type: BLOOD SPECIMENOrdering Facility: [facility] Address: [address] [place] [address] Performed By: #### 5 7021-8 ####[facility]ORATORYCLIA [id number] [address] Differential cell count method Nom (Bld) Auto Normal [facility] Comment on above: Order Comment: Speci men Type: BLOOD SPECIMENOrdering Facility: [facility] Address: [address] [place] [address] Performed By: #### 5 7021-8 ####[facility]ORATORYCLIA [id number] [address] [place] Eosinophils (Bld) [#/Vol] 0.18 10*3/uL Normal <0.46 [facility] Comment on above: Order Comment: Speci men Type: BLOOD SPECIMENOrdering Facility: [facility] Address: [address] [place] [address] Performed By: #### 5 7021-8 ####[facility]ORATORYCLIA [id number] [address] Eosinophils/100 WBC (Bld) 1.6 % Normal [facility] Comment on above: Order Comment: Speci men Type: BLOOD SPECIMENOrdering Facility: [facility] Address: [address] [place] [address] Performed By: #### 5 7021-8 ####[facility]ORATORYCLIA [id number] [address] Erythrocyte distribution width (RBC) [Ratio] 17.9 % High 11.5-15.0 [facility] Comment on above: Order Comment: Speci men Type: BLOOD SPECIMENOrdering Facility: [facility] Address: [address] [place] [address] Performed By: #### 5 7021-8 ####[facility]ORATORYCLIA [id number] [address] Hematocrit (Bld) [Volume fraction] 27.6 % Low 39.0-51.0 [facility] Comment on above: Order Comment: Speci men Type: BLOOD SPECIMENOrdering Facility: [facility] Address: [address] [place] [address] Performed By: #### 5 7021-8 ####[facility]ORATORYCLIA [id number] [address] [place] Hemoglobin (Bld) [Mass/Vol] 8.5 g/dL Low 13.0-17.0 [facility] Comment on above: Order Comment: Speci men Type: BLOOD SPECIMENOrdering Facility: [facility] Address: [address] [place] [address] Performed By: #### 5 7021-8 ####[facility]ORATORYCLIA [id number] [address] IMMATURE GRAN % 0.6 % Normal [facility] Comment on above: Order Comment: Speci men Type: BLOOD SPECIMENOrdering Facility: [facility] Address: [address] [place] [address] Performed By: #### 5 7021-8 ####[facility]ORATORYCLIA [id number] [address] IMMATURE GRAN ABS 0.07 k/uL Normal <0.10 [facility] Comment on above: Order Comment: Speci men Type: BLOOD SPECIMENOrdering Facility: [facility] Address: [address] [place] [address] Performed By: #### 5 7021-8 ####[facility]ORATORYCLIA [id number] [address] Lymphocytes (Bld) [#/Vol] 1.81 10*3/uL Normal 1.00-4.00 [facility] Comment on above: Order Comment: Speci men Type: BLOOD SPECIMENOrdering Facility: [facility] Address: [address] [place] [address] Performed By: #### 5 7021-8 ####[facility]ORATORYCLIA [id number] [address] Lymphocytes/100 WBC (Bld) 15.7 % Normal [facility] Comment on above: Order Comment: Speci men Type: BLOOD SPECIMENOrdering Facility: [facility] Address: [address] [place] [address] Performed By: #### 5 7021-8 ####[facility]ORATORYCLIA [id number] [address] MCH (RBC) [Entitic mass] 28.6 pg Normal 26.0-34.0 [facility] Comment on above: Order Comment: Speci men Type: BLOOD SPECIMENOrdering Facility: [facility] Address: [address] [place] [address] Performed By: #### 5 7021-8 ####[facility]ORATORYCLIA [id number] [address] MCHC (RBC) [Mass/Vol] 30.8 g/dL Normal 30.5-36.0 [facility] Comment on above: Order Comment: Speci men Type: BLOOD SPECIMENOrdering Facility: [facility] Address: [address] [place] [address] Performed By: #### 5 7021-8 ####[facility]ORATORYCLIA [id number] [address] [place] MCV (RBC) [Entitic vol] 92.9 fL Normal 80.0-100.0 [facility] Comment on above: Order Comment: Speci men Type: BLOOD SPECIMENOrdering Facility: [facility] Address: [address] [place] [address] Performed By: #### 5 7021-8 ####[facility]ORATORYCLIA [id number] [address] [place] Monocytes (Bld) [#/Vol] 0.63 10*3/uL Normal <0.87 [facility] Comment on above: Order Comment: Speci men Type: BLOOD SPECIMENOrdering Facility: [facility] Address: [address] [place] [address] Performed By: #### 5 7021-8 ####[facility]ORATORYCLIA [id number] [address] STATES [facility] Monocytes/100 WBC (Bld) 5.5 % Normal [facility] Comment on above: Order Comment: Speci men Type: BLOOD SPECIMENOrdering Facility: [facility] Address: [address] [place] [address] Performed By: #### 5 7021-8 ####[facility]ORATORYCLIA [id number] [address] [place] Neutrophils (Bld) [#/Vol] 8.78 10*3/uL High 1.45-7.50 [facility] Comment on above: Order Comment: Speci men Type: BLOOD SPECIMENOrdering Facility: [facility] Address: [address] [place] [address] Performed By: #### 5 7021-8 ####[facility]ORATORYCLIA [id number] [address] Neutrophils/100 WBC (Bld) 76.3 % Normal [facility] Comment on above: Order Comment: Speci men Type: BLOOD SPECIMENOrdering Facility: [facility] Address: [address] [address] Performed By: #### 5 7021-8 ####[facility]ORATORYCLIA [id number] [address] [place] Nucleated RBC (Bld) [#/Vol] 10*3/uL Normal <0.01 [facility] Comment on above: Order Comment: Speci men Type: BLOOD SPECIMENOrdering Facility: [facility] Address: [address] [place] [address] Performed By: #### 5 7021-8 ####[facility]ORATORYCLIA [id number] [address] Nucleated RBC/100 WBC (Bld) [Ratio] 0.0 /100 WBC Normal [facility] Comment on above: Order Comment: Speci men Type: BLOOD SPECIMENOrdering Facility: [facility] Address: [address] [place] [address] Performed By: #### 5 7021-8 ####[facility]ORATORYCLIA [id number] [address] Platelet mean volume (Bld) [Entitic vol] 9.9 fL Normal 9.0-12.7 [facility] Comment on above: Order Comment: Speci men Type: BLOOD SPECIMENOrdering Facility: [facility] Address: [address] Performed By: #### 5 7021-8 ####[facility]ORATORYCLIA [id number] [address] [place] Platelets (Bld) [#/Vol] 230 10*3/uL Normal 150-400 [facility] Comment on above: Order Comment: Speci men Type: BLOOD SPECIMENOrdering Facility: [facility] Address: [address] [place], [place] [address] Performed By: #### 5 7021-8 ####[facility]ORATORYCLIA [id number] [address] OF [facility] RBC (Bld) [#/Vol] 2.97 10*6/uL Low 4.20-6.00 [facility] Comment on above: Order Comment: Speci men Type: BLOOD SPECIMENOrdering Facility: [facility] Address: [address] [place] [address] Performed By: #### 5 7021-8 ####[facility]ORATORYCLIA [id number] [address] WBC (Bld) [#/Vol] 11.50 10*3/uL High 3.70-11.00 [facility] Comment on above: Order Comment: Speci men Type: BLOOD SPECIMENOrdering Facility: [facility] Address: [address] [place] [address] Performed By: #### 5 7021-8 ####[facility]ORATORYCLIA [id number] [address] CONSULT PROGon 08-06-2021 CONSULT PROG Normal [facility] Magnesium SerPl-mCncon 08-06 Magnesium [Mass/Vol] 1.9 mg/dL Normal 1.7-2.3 [facility] Comment on above: Order Comment: Speci men Type: BLOOD SPECIMENOrdering Facility: [facility] Address: [address] [place] [address] Performed By: #### 2 4321-2, 2777-1, 77063-3 ####[facility]ORATORYCLIA [id number] [address] NURSING PROGon 08-06-2021 NURSING PROG Normal [facility] OPERATIVE NOon 08-06-2021 OPERATIVE NO Normal [facility] Phosphate SerPl-mCncon 08-06 Phosphate [Mass/Vol] 4.2 mg/dL Normal 2.7-4.8 [facility] Comment on above: Order Comment: Speci men Type: BLOOD SPECIMENOrdering Facility: [facility] Address: [address] [place] [phone] Performed By: #### 2 4321-2, 2777-1, 73437-9 ####[facility]ORATORYCLIA [id number] [place] [address] [place] ALLIED HEALTHon 08-05-2021 ALLIED HEALTH Normal [facility] [...] #### 3 2355-0 ####[facility]ORATORYCLIA [id number] [place] [address] [place] Bacteria Ur Culton Bacteria identified Cx Nom (U) CULTURE, URINE: No growth (<1,000 CFU/ml) Normal [facility] Comment on above: Performed By: #### 6 30-4 ####[facility]ORATORYCLIA [id number] [place] [address] [place] Basic metabolic 2000 panelon 08-05-2021 Anion gap [Moles/Vol] 7 mmol/L Low 9-18 [facility] Comment on above: Order Comment: Speci men Type: BLOOD SPECIMENOrdering Facility: [facility] Address: [address] [place] [phone] Performed By: #### 2 4321-2 ####[facility]ORATORYCLIA [id number] [place] [address] [place] Calcium [Mass/Vol] 9.5 mg/dL Normal 8.5-10.2 [facility] Comment on above: Order Comment: Speci men Type: BLOOD SPECIMENOrdering Facility: [facility] Address: [address] [address] Performed By: #### 2 4321-2 ####[facility]ORATORYCLIA [id number] [address] [place] Chloride [Moles/Vol] 97 mmol/L Normal 97-105 [facility] Comment on above: Order Comment: Speci men Type: BLOOD SPECIMENOrdering Facility: [facility] Address: [address] [place] [address] Performed By: #### 2 4321-2 ####[facility]ORATORYCLIA [id number] [address] [place] CO2 [Moles/Vol] 30 mmol/L Normal 22-30 [facility] Comment on above: Order Comment: Speci men Type: BLOOD SPECIMENOrdering Facility: [facility] Address: [address] [place] [address] Performed By: #### 2 4321-2 ####[facility]ORATORYCLIA [id number] [address] [place] [facility] Creatinine [Mass/Vol] 0.61 mg/dL Low 0.73-1.22 [facility] Comment on above: Order Comment: Speci men Type: BLOOD SPECIMENOrdering Facility: [facility] Address: [address] [place] [address] Performed By: #### 2 4321-2 ####[facility]ORATORYCLIA [id number] [address] ESTIMATED GLOMERULAR FILTRATION RATE 104 mL/min/1.73m??? Normal >=60 [facility] Comment on above: Order Comment: Speci men Type: BLOOD SPECIMENOrdering Facility: [facility] Address: [address] [place] [address] Result Comment: Luzmaria mated Glomerular Filtration Rate [...] #### 2 4321-2 ####[facility]ORATORYCLIA [id number] [place] [address] [place] Glucose [Mass/Vol] 124 mg/dL High 74-99 [facility] Comment on above: Order Comment: Shira feldman Type: BLOOD SPECIMENOrdering Facility: [facility] Address: [address] [place] [address] Result Comment: The [employer] [place] [employer] (ADA) provides guidance for cutoff [...] Standards of Medical Care in Diabetes 2016, [employer] [place] [employer]. Diabetes Care. 2016.39(Suppl 1). Performed By: #### 2 4321-2 ####[facility]ORATORYCLIA [id number] [place] [address] [place] Potassium [Moles/Vol] 4.9 mmol/L Normal 3.7-5.1 [facility] Comment on above: Order Comment: Shira feldman Type: BLOOD SPECIMENOrdering Facility: [facility] Address: [address] [address] Performed By: #### 2 4321-2 ####[facility]ORATORYCLIA [id number] [place] [address] [place] Sodium [Moles/Vol] 134 mmol/L Low 136-144 [facility] Comment on above: Order Comment: Shira feldman Type: BLOOD SPECIMENOrdering Facility: [facility] Address: [address] [address] Performed By: #### 2 4321-2 ####[facility]ORATORYCLIA [id number] [place] [address] [place] Urea nitrogen [Mass/Vol] 40 mg/dL High 9-24 [facility] Comment on above: Order Comment: Speci men Type: BLOOD SPECIMENOrdering Facility: [facility] Address: [address] [place] [address] Performed By: #### 2 4321-2 ####[facility]ORATORYCLIA [id number] [address] [place] CBC W Auto Differential pane l (Bld)on 08-05-2021 Basophils (Bld) [#/Vol] 0.04 10*3/uL Normal <0.11 [facility] Comment on above: Order Comment: Speci men Type: BLOOD SPECIMENOrdering Facility: [facility] Address: [address] [place] [address] Performed By: #### 5 7021-8 ####[facility]ORATORYCLIA [id number] [address] [place] Basophils/100 WBC (Bld) 0.3 % Normal [facility] Comment on above: Order Comment: Speci men Type: BLOOD SPECIMENOrdering Facility: [facility] Address: [address] [place] [address] Performed By: #### 5 7021-8 ####[facility]ORATORYCLIA [id number] [address] Differential cell count method Nom (Bld) Auto Normal [facility] Comment on above: Order Comment: Speci men Type: BLOOD SPECIMENOrdering Facility: [facility] Address: [address] [place] [address] Performed By: #### 5 7021-8 ####[facility]ORATORYCLIA [id number] [place] [address] [place] Eosinophils (Bld) [#/Vol] 0.42 10*3/uL Normal <0.46 [facility] Comment on above: Order Comment: Speci men Type: BLOOD SPECIMENOrdering Facility: [facility] Address: [address] [place] [address] Performed By: #### 5 7021-8 ####[facility]ORATORYCLIA [id number] [address] Eosinophils/100 WBC (Bld) 3.6 % Normal [facility] Comment on above: Order Comment: Speci men Type: BLOOD SPECIMENOrdering Facility: [facility] Address: [address] [place] [address] Performed By: #### 5 7021-8 ####[facility]ORATORYCLIA [id number] [address] Erythrocyte distribution width (RBC) [Ratio] 17.9 % High 11.5-15.0 [facility] Comment on above: Order Comment: Speci men Type: BLOOD SPECIMENOrdering Facility: [facility] Address: [address] [place] [address] Performed By: #### 5 7021-8 ####[facility]ORATORYCLIA [id number] [address] Hematocrit (Bld) [Volume fraction] 30.8 % Low 39.0-51.0 [facility] Comment on above: Order Comment: Speci men Type: BLOOD SPECIMENOrdering Facility: [facility] Address: [address] [place] [address] Performed By: #### 5 7021-8 ####[facility]ORATORYCLIA [id number] [address] Hemoglobin (Bld) [Mass/Vol] 9.6 g/dL Low 13.0-17.0 [facility] Comment on above: Order Comment: Speci men Type: BLOOD SPECIMENOrdering Facility: [facility] Address: [address] [place] [address] Performed By: #### 5 7021-8 ####[facility]ORATORYCLIA [id number] [address] IMMATURE GRAN % 0.5 % Normal [facility] Comment on above: Order Comment: Speci men Type: BLOOD SPECIMENOrdering Facility: [facility] Address: [address] [place] [address] Performed By: #### 5 7021-8 ####[facility]ORATORYCLIA [id number] [address] STATES [place] [facility] IMMATURE GRAN ABS 0.06 k/uL Normal <0.10 [facility] Comment on above: Order Comment: Speci men Type: BLOOD SPECIMENOrdering Facility: [facility] Address: [address] [place] [address] Performed By: #### 5 7021-8 ####[facility]ORATORYCLIA [id number] [address] Lymphocytes (Bld) [#/Vol] 2.17 10*3/uL Normal 1.00-4.00 [facility] Comment on above: Order Comment: Speci men Type: BLOOD SPECIMENOrdering Facility: [facility] Address: [address] [place] [address] Performed By: #### 5 7021-8 ####[facility]ORATORYCLIA [id number] [address] Lymphocytes/100 WBC (Bld) 18.7 % Normal [facility] Comment on above: Order Comment: Speci men Type: BLOOD SPECIMENOrdering Facility: [facility] Address: [address] [place] [address] Performed By: #### 5 7021-8 ####[facility]ORATORYCLIA [id number] [place] [address] [place] MCH (RBC) [Entitic mass] 28.9 pg Normal 26.0-34.0 [facility] Comment on above: Order Comment: Speci men Type: BLOOD SPECIMENOrdering Facility: [facility] Address: [address] [place] [address] Performed By: #### 5 7021-8 ####[facility]ORATORYCLIA [id number] [address] [place] [facility] MCHC (RBC) [Mass/Vol] 31.2 g/dL Normal 30.5-36.0 [facility] Comment on above: Order Comment: Speci men Type: BLOOD SPECIMENOrdering Facility: [facility] Address: [address] [place] [address] Performed By: #### 5 7021-8 ####[facility]ORATORYCLIA [id number] [address] [place] MCV (RBC) [Entitic vol] 92.8 fL Normal 80.0-100.0 [facility] Comment on above: Order Comment: Speci men Type: BLOOD SPECIMENOrdering Facility: [facility] Address: [address] [place] [address] Performed By: #### 5 7021-8 ####[facility]ORATORYCLIA [id number] [address] Monocytes (Bld) [#/Vol] 0.71 10*3/uL Normal <0.87 [facility] Comment on above: Order Comment: Speci men Type: BLOOD SPECIMENOrdering Facility: [facility] Address: [address] [place] [address] Performed By: #### 5 7021-8 ####[facility] LABORATORYCLIA [id number] [address] Monocytes/100 WBC (Bld) 6.1 % Normal [facility] Comment on above: Order Comment: Speci men Type: BLOOD SPECIMENOrdering Facility: [facility] Address: [address] [place] [address] Performed By: #### 5 7021-8 ####[facility] LABORATORYCLIA [id number] [address] [place] Neutrophils (Bld) [#/Vol] 8.19 10*3/uL High 1.45-7.50 [facility] Comment on above: Order Comment: Speci men Type: BLOOD SPECIMENOrdering Facility: [facility] Address: [address] [address] Performed By: #### 5 7021-8 ####[facility] LABORATORYCLIA [id number] [address] Neutrophils/100 WBC (Bld) 70.8 % Normal [facility] Comment on above: Order Comment: Speci men Type: BLOOD SPECIMENOrdering Facility: [facility] Address: [address] [place] [address] Performed By: #### 5 7021-8 ####[facility] LABORATORYCLIA [id number] [address] [place] Nucleated RBC (Bld) [#/Vol] 10*3/uL Normal <0.01 [facility] Comment on above: Order Comment: Speci men Type: BLOOD SPECIMENOrdering Facility: [facility] Address: [address] [place] [address] Performed By: #### 5 7021-8 ####[facility] LABORATORYCLIA [id number] [address] [place] Nucleated RBC/100 WBC (Bld) [Ratio] 0.0 /100 WBC Normal [facility] Comment on above: Order Comment: Speci men Type: BLOOD SPECIMENOrdering Facility: [facility] Address: [address] [place] [address] Performed By: #### 5 7021-8 ####[facility] LABORATORYCLIA [id number] [place] [address] [place] Platelet mean volume (Bld) [Entitic vol] 9.6 fL Normal 9.0-12.7 [facility] Comment on above: Order Comment: Speci men Type: BLOOD SPECIMENOrdering Facility: [facility] Address: [address] [place] [address] Performed By: #### 5 7021-8 ####[facility] LABORATORYCLIA [id number] [place] [address] [place] Platelets (Bld) [#/Vol] 339 10*3/uL Normal 150-400 [facility] Comment on above: Order Comment: Speci men Type: BLOOD SPECIMENOrdering Facility: [facility] Address: [address] [place] [address] Performed By: #### 5 7021-8 ####[facility] LABORATORYCLIA [id number] [address] STATES OF [facility] RBC (Bld) [#/Vol] 3.32 10*6/uL Low 4.20-6.00 [facility] Comment on above: Order Comment: Speci men Type: BLOOD SPECIMENOrdering Facility: [facility] Address: [address] [place] [address] Performed By: #### 5 7021-8 ####[facility] LABORATORYCLIA [id number] [address] OF [facility] WBC (Bld) [#/Vol] 11.59 10*3/uL High 3.70-11.00 [facility] Comment on above: Order Comment: Speci men Type: BLOOD SPECIMENOrdering Facility: [facility] Address: [address] [place] [address] Performed By: #### 5 7021-8 ####[facility] LABORATORYCLIA [id number] [address] BRAIN WO IVCONon 08-06-19 CT BRAIN WO IVCON Normal [facility] Magnesium SerPl-mCncon 08-05 Magnesium [Mass/Vol] 2.2 mg/dL Normal 1.7-2.3 [facility] Comment on above: Order Comment: Speci men Type: BLOOD SPECIMENOrdering Facility: [facility] Address: [address] [place] [address] Performed By: #### 1 9123-9, 2777-1 ####[facility] LABORATORYCLIA [id number] [address] [place] [facility] NURSING PROGon 08-05-2021 NURSING PROG Normal [facility] NURSING PROG Normal [facility] NUTRITIONon 08-05-2021 NUTRITION Normal [facility] OPERATIVE NOon 08-05-2021 OPERATIVE NO Normal [facility] Phosphate SerPl-mCncon 08-05 Phosphate [Mass/Vol] 4.6 mg/dL Normal 2.7-4.8 [facility] Comment on above: Order Comment: Speci men Type: BLOOD SPECIMENOrdering Facility: [facility] Address: [address] [place] [address] Performed By: #### 1 9123-9, 2777-1 ####[facility] LABORATORYCLIA [id number] [address] [place] THERAPY NTon 08-05-2021 THERAPY NT Normal [facility] THERAPY NT Normal [facility] Urinalysis complete panel (U )on 08-05-2021 Bilirubin Ql (U) Negative Normal Negative [facility] Comment on above: Order Comment: Speci men Type: URINE SPECIMENOrdering Facility: [facility] Address: [address] [place] [address] Performed By: #### 2 4356-8 ####[facility]CL[facility] [id number] [address] [place] Clarity (Unsp spec) Clear Normal Clear [facility] Comment on above: Order Comment: Speci men Type: URINE SPECIMENOrdering Facility: [facility] Address: [address] [place] [address] Performed By: #### 2 4356-8 ####[facility]ORATORYCLIA [id number] [address] [place] Color (U) Light Yellow Normal yellow [facility] Comment on above: Order Comment: Speci men Type: URINE SPECIMENOrdering Facility: [facility] Address: [address] [place] [address] Performed By: #### 2 4356-8 ####[facility] LABORATORYCLIA [id number] [address] [place] Epithelial cells LM.HPF (Urine sed) [#/Area] Few Abnormal None Seen [facility] Comment on above: Order Comment: Speci men Type: URINE SPECIMENOrdering Facility: [facility] Address: [address] [place] [address] Performed By: #### 2 4356-8 ####[facility] LABORATORYCLIA [id number] [address] [place] Glucose Test strip (U) [Mass/Vol] Negative Normal Negative [facility] Comment on above: Order Comment: Speci men Type: URINE SPECIMENOrdering Facility: [facility] Address: [address] [place] [address] Performed By: #### 2 4356-8 ####[facility] LABORATORYCLIA [id number] [address] [place] [facility] Hemoglobin Ql (U) Negative Normal Negative [facility] Comment on above: Order Comment: Speci men Type: URINE SPECIMENOrdering Facility: [facility] Address: [address] [place] [address] Performed By: #### 2 4356-8 ####[facility] LABORATORYCLIA [id number] [address] [place] [facility] Hyaline casts (Urine sed) [#/Area] 1-3 /LPF Abnormal 0 /LPF [facility] Comment on above: Order Comment: Speci men Type: URINE SPECIMENOrdering Facility: [facility] Address: [address] [place] [address] Performed By: #### 2 4356-8 ####[facility] LABORATORYCLIA [id number] [address] [place] Ketones Ql (U) Negative Normal Negative [facility] Comment on above: Order Comment: Speci men Type: URINE SPECIMENOrdering Facility: [facility] Address: [address] [place] [address] Performed By: #### 2 4356-8 ####[facility] LABORATORYCLIA [id number] [address] [place] Leukocyte esterase Test strip Ql (U) Negative Normal Negative [facility] Comment on above: Order Comment: Speci men Type: URINE SPECIMENOrdering Facility: [facility] Address: [address] [place] [address] Performed By: #### 2 4356-8 ####[facility] LABORATORYCLIA [id number] [address] [place] Nitrite Ql (U) Negative Normal Negative [facility] Comment on above: Order Comment: Speci men Type: URINE SPECIMENOrdering Facility: [facility] Address: [address] [place] [address] Performed By: #### 2 4356-8 ####[facility] LABORATORYCLIA [id number] [address] pH (U) 6.0 [pH] Normal 5.0-8.0 [facility] Comment on above: Order Comment: Speci men Type: URINE SPECIMENOrdering Facility: [facility] Address: [address] [place] [address] Performed By: #### 2 4356-8 ####[facility] LABORATORYCLIA [id number] [address] STATES [facility] Protein (U) [Mass/Vol] Negative Normal Negative [facility] Comment on above: Order Comment: Speci men Type: URINE SPECIMENOrdering Facility: [facility] Address: [address] [place] [address] Performed By: #### 2 4356-8 ####[facility] LABORATORYCLIA [id number] [address] [place] RBC LM.HPF (Urine sed) [#/Area] 0-3 /HPF Normal 0-3 /HPF [facility] Comment on above: Order Comment: Speci men Type: URINE SPECIMENOrdering Facility: [facility] Address: [address] [place] [address] Performed By: #### 2 4356-8 ####[facility] LABORATORYCLIA [id number] [address] [place] Specific gravity (U) [Rel density] 1.015 Normal 1.005-1.030 [facility] Comment on above: Order Comment: Speci men Type: URINE SPECIMENOrdering Facility: [facility] Address: [address] [place] [address] Performed By: #### 2 4356-8 ####[facility] LABORATORYCLIA [id number] [address] [place] Urobilinogen Ql (U) Normal Normal Negative [facility] Comment on above: Order Comment: Speci men Type: URINE SPECIMENOrdering Facility: [facility] Address: [address] [place] [address] Performed By: #### 2 4356-8 ####[facility] LABORATORYCLIA [id number] [address] [place] WBC LM.HPF (Urine sed) [#/Area] 0-5 /HPF Normal 0-5 /HPF [facility] Comment on above: Order Comment: Speci men Type: URINE SPECIMENOrdering Facility: [facility] Address: [address] [place] [address] Performed By: #### 2 4356-8 ####[facility] LABORATORYCLIA [id number] [address] [place] XR ABDOMEN 1V SUPINEon 08-05 XR ABDOMEN 1V SUPINE Normal [facility] XR CHEST 1V FRONTALon 2021 XR [...] #### 6 00-7 ####[facility] LABORATORYCLIA [id number] [address] Bacteria identified Cx Nom (Bld) CULTURE, BLOOD: No growth 5 days Normal [facility] Comment on above: Performed By: #### 6 00-7 ####[facility] LABORATORYCLIA [id number] [address] [place] CBC W Auto Differential pane l (Bld)on 08-04-2021 Basophils (Bld) [#/Vol] 0.05 10*3/uL Normal <0.11 [facility] Comment on above: Order Comment: Speci men Type: BLOOD SPECIMENOrdering Facility: [facility] Address: [address] [place] [address] Performed By: #### 5 7021-8 ####[facility] LABORATORYCLIA [id number] [address] Basophils/100 WBC (Bld) 0.4 % Normal [facility] Comment on above: Order Comment: Speci men Type: BLOOD SPECIMENOrdering Facility: [facility] Address: [address] [place] [address] Performed By: #### 5 7021-8 ####[facility] LABORATORYCLIA [id number] [address] Differential cell count method Nom (Bld) Auto Normal [facility] Comment on above: Order Comment: Speci men Type: BLOOD SPECIMENOrdering Facility: [facility] Address: [address] [address] Performed By: #### 5 7021-8 ####[facility] LABORATORYCLIA [id number] [address] [place] [facility] Eosinophils (Bld) [#/Vol] 0.21 10*3/uL Normal <0.46 [facility] Comment on above: Order Comment: Speci men Type: BLOOD SPECIMENOrdering Facility: [facility] Address: [address] [address] Performed By: #### 5 7021-8 ####[facility] LABORATORYCLIA [id number] [address] Eosinophils/100 WBC (Bld) 1.7 % Normal [facility] Comment on above: Order Comment: Speci men Type: BLOOD SPECIMENOrdering Facility: [facility] Address: [address] [place] [address] Performed By: #### 5 7021-8 ####[facility] LABORATORYCLIA [id number] [address] Erythrocyte distribution width (RBC) [Ratio] 18.1 % High 11.5-15.0 [facility] Comment on above: Order Comment: Speci men Type: BLOOD SPECIMENOrdering Facility: [facility] Address: [address] [place] [address] Performed By: #### 5 7021-8 ####[facility] LABORATORYCLIA [id number] [address] Hematocrit (Bld) [Volume fraction] 32.0 % Low 39.0-51.0 [facility] Comment on above: Order Comment: Speci men Type: BLOOD SPECIMENOrdering Facility: [facility] Address: [address] [place] [address] Performed By: #### 5 7021-8 ####[facility] LABORATORYCLIA [id number] [address] [place] Hemoglobin (Bld) [Mass/Vol] 10.0 g/dL Low 13.0-17.0 [facility] Comment on above: Order Comment: Speci men Type: BLOOD SPECIMENOrdering Facility: [facility] Address: [address] [place] [address] Performed By: #### 5 7021-8 ####[facility] LABORATORYCLIA [id number] [address] IMMATURE GRAN % 0.6 % Normal [facility] Comment on above: Order Comment: Speci men Type: BLOOD SPECIMENOrdering Facility: [facility] Address: [address] [place] [address] Performed By: #### 5 7021-8 ####[facility] LABORATORYCLIA [id number] [address] IMMATURE GRAN ABS 0.08 k/uL Normal <0.10 [facility] Comment on above: Order Comment: Speci men Type: BLOOD SPECIMENOrdering Facility: [facility] Address: [address] [place] [address] Performed By: #### 5 7021-8 ####[facility] LABORATORYCLIA [id number] [address] Lymphocytes (Bld) [#/Vol] 2.55 10*3/uL Normal 1.00-4.00 [facility] Comment on above: Order Comment: Speci men Type: BLOOD SPECIMENOrdering Facility: [facility] Address: [address] [place] [address] Performed By: #### 5 7021-8 ####[facility] LABORATORYCLIA [id number] [address] Lymphocytes/100 WBC (Bld) 20.5 % Normal [facility] Comment on above: Order Comment: Speci men Type: BLOOD SPECIMENOrdering Facility: [facility] Address: [address] [place] [address] Performed By: #### 5 7021-8 ####[facility] LABORATORYCLIA [id number] [address] MCH (RBC) [Entitic mass] 28.9 pg Normal 26.0-34.0 [facility] Comment on above: Order Comment: Speci men Type: BLOOD SPECIMENOrdering Facility: [facility] Address: [address] [place] [address] Performed By: #### 5 7021-8 ####[facility] LABORATORYCLIA [id number] [address] MCHC (RBC) [Mass/Vol] 31.3 g/dL Normal 30.5-36.0 [facility] Comment on above: Order Comment: Speci men Type: BLOOD SPECIMENOrdering Facility: [facility] Address: [address] [address] Performed By: #### 5 7021-8 ####[facility] LABORATORYCLIA [id number] [address] [place] MCV (RBC) [Entitic vol] 92.5 fL Normal 80.0-100.0 [facility] Comment on above: Order Comment: Speci men Type: BLOOD SPECIMENOrdering Facility: [facility] Address: [address] [place] [address] Performed By: #### 5 7021-8 ####[facility] LABORATORYCLIA [id number] [address] [place] Monocytes (Bld) [#/Vol] 0.85 10*3/uL Normal <0.87 [facility] Comment on above: Order Comment: Speci men Type: BLOOD SPECIMENOrdering Facility: [facility] Address: [address] [place] [address] Performed By: #### 5 7021-8 ####[facility] LABORATORYCLIA [id number] [address] Monocytes/100 WBC (Bld) 6.8 % Normal [facility] Comment on above: Order Comment: Speci men Type: BLOOD SPECIMENOrdering Facility: [facility] Address: [address] [place] [address] Performed By: #### 5 7021-8 ####[facility] LABORATORYCLIA [id number] [address] [place] Neutrophils (Bld) [#/Vol] 8.68 10*3/uL High 1.45-7.50 [facility] Comment on above: Order Comment: Speci men Type: BLOOD SPECIMENOrdering Facility: [facility] Address: [address] [place] [address] Performed By: #### 5 7021-8 ####[facility] LABORATORYCLIA [id number] [address] Neutrophils/100 WBC (Bld) 70.0 % Normal [facility] Comment on above: Order Comment: Speci men Type: BLOOD SPECIMENOrdering Facility: [facility] Address: [address] [place] [address] Performed By: #### 5 7021-8 ####[facility] LABORATORYCLIA [id number] [address] [place] Nucleated RBC (Bld) [#/Vol] 10*3/uL Normal <0.01 [facility] Comment on above: Order Comment: Speci men Type: BLOOD SPECIMENOrdering Facility: [facility] Address: [address] [place] [address] Performed By: #### 5 7021-8 ####[facility] LABORATORYCLIA [id number] [address] Nucleated RBC/100 WBC (Bld) [Ratio] 0.0 /100 WBC Normal [facility] Comment on above: Order Comment: Speci men Type: BLOOD SPECIMENOrdering Facility: [facility] Address: [address] [place] [address] Performed By: #### 5 7021-8 ####[facility] LABORATORYCLIA [id number] [address] [place] Platelet mean volume (Bld) [Entitic vol] 10.0 fL Normal 9.0-12.7 [facility] Comment on above: Order Comment: Speci men Type: BLOOD SPECIMENOrdering Facility: [facility] Address: [address] Performed By: #### 5 7021-8 ####[facility] LABORATORYCLIA [id number] [address] [place] Platelets (Bld) [#/Vol] 393 10*3/uL Normal 150-400 [facility] Comment on above: Order Comment: Speci men Type: BLOOD SPECIMENOrdering Facility: [facility] Address: [address] [place] [address] Performed By: #### 5 7021-8 ####[facility] LABORATORYCLIA [id number] [address] OF [facility] RBC (Bld) [#/Vol] 3.46 10*6/uL Low 4.20-6.00 [facility] Comment on above: Order Comment: Speci men Type: BLOOD SPECIMENOrdering Facility: [facility] Address: [address] [place] [address] Performed By: #### 5 7021-8 ####[facility] LABORATORYCLIA [id number] [address] OF [facility] WBC (Bld) [#/Vol] 12.42 10*3/uL High 3.70-11.00 [facility] Comment on above: Order Comment: Speci men Type: BLOOD SPECIMENOrdering Facility: [facility] Address: [address] [place] [address] Performed By: #### 5 7021-8 ####[facility] LABORATORYCLIA [id number] [address] [place] CT BRAIN WO IVCONon 08-05-[address] BRAIN WO IVCON Normal [facility] Lactate (Bld) [Moles/Vol]on 08-04-2021 Lactate [Moles/Vol] 1.4 mmol/L Normal 0.5-2.2 [facility] Comment on above: Order Comment: Speci men Type: BLOOD SPECIMENOrdering Facility: [facility] Address: [address] [place] [address] Performed By: #### 3 2693-4 ####[facility] LABORATORYCLIA [id number] [address] PROCALCITONIN (LAB)on 2021 Procalcitonin [Mass/Vol] 0.08 ng/mL Normal <0.09 [facility] Comment on above: Order Comment: Speci men Type: BLOOD SPECIMENOrdering Facility: [facility] Address: [address] [place] [address] Result Comment: For a guided interpretation of test results, please visit the Change in Procalcitonin Calculator, [email or web address]. Performed By: #### P ROCAL ####[facility] LABORATORYCLIA [id number] [address] Prealbumin [Mass/Vol]on 07-07 Prealbumin Nephelometry [Mass/Vol] 35 mg/dL Normal 17-36 [facility] Comment on above: Order Comment: Speci men Type: BLOOD SPECIMENOrdering Facility: [facility] Address: [address] [place] [address] Performed By: #### 1 4338-8 ####[facility] LABORATORYCLIA [id number] [address] SARS-CoV-2 RNA Resp Ql MEGAN+p robeon 08-04-2021 SARS-CoV-2 (COVID-19) RNA MEGAN+probe Ql (Resp) COVID 19 RESULT: SARS-CoV-2 (Agent of COVID-19) Not Detected by RT-PCR or equivalent method. This test has been authorized by FDA under an Emergency Use Authorization (EUA). Normal [facility] Comment on above: Performed By: #### 9 4500-6 ####[facility] LABORATORYCLIA [id number] [address] TYPE AND SCREENon 08-04-2021 ABO O Normal [facility] Comment on above: Order Comment: Speci men Type: BLOOD SPECIMENOrdering Facility: [facility] Address: [address] [place] [address] Performed By: #### T SCR ####[facility] BLOOD BANKCLIA [id number] [address] HISTORICAL AB SCR STATUS Negative Normal [facility] Comment on above: Order Comment: Speci men Type: BLOOD SPECIMENOrdering Facility: [facility] Address: [address] [place] [address] Performed By: #### T SCR ####[facility] BLOOD BANKCLIA [id number] [address] OF [facility] Rh Nom (Bld) Positive Normal [facility] Comment on above: Order Comment: Speci men Type: BLOOD SPECIMENOrdering Facility: [facility] Address: [address] [place] [address] Performed By: #### T SCR ####[facility] BLOOD BANKCLIA [id number] [address] TYPE AND SCREEN EXPIRATION 08/07/2021 23:59 Normal [facility] Comment on above: Order Comment: Speci men Type: BLOOD SPECIMENOrdering Facility: [facility] Address: [address] [place] [address] Performed By: #### T SCR ####[facility] BLOOD BANKCLIA [id number] [address] [place] aPTT PPPon 08-04-2021 aPTT Coag (PPP) [Time] 51.8 s High 23.0-32.4 [facility] Comment on above: Order Comment: Speci men Type: BLOOD SPECIMENOrdering Facility: [facility] Address: [address] [place] [address] Performed By: #### 1 4979-9 ####[facility] LABORATORYCLIA [id number] [address] [place] Basic metabolic 2000 panelon 08-03-2021 Anion gap [Moles/Vol] 9 mmol/L Normal 9-18 [facility] Comment on above: Order Comment: Speci men Type: BLOOD SPECIMENOrdering Facility: [facility] Address: [address] [place] [address] Performed By: #### 2 4321-2, 89582-5, 2777-1 ####[facility] LABORATORYCLIA [id number] [address] [place] [facility] Calcium [Mass/Vol] 9.3 mg/dL Normal 8.5-10.2 [facility] Comment on above: Order Comment: Speci men Type: BLOOD SPECIMENOrdering Facility: [facility] Address: [address] [place], [place] [address] Performed By: #### 2 4321-2, , 2776-05 ####[facility] LABORATORYCLIA [id number] [place] [address] [place] Chloride [Moles/Vol] 97 mmol/L Normal 97-105 [facility] Comment on above: Order Comment: Speci men Type: BLOOD SPECIMENOrdering Facility: [facility] Address: [address] [place] [address] Performed By: #### 2 4321-2, , 2776-05 ####[facility]ORATORYCLIA [id number] [address] [place] CO2 [Moles/Vol] 27 mmol/L Normal 22-30 [facility] Comment on above: Order Comment: Speci men Type: BLOOD SPECIMENOrdering Facility: [facility] Address: [address] [place] [address] Performed By: #### 2 4321-2, , 2776-05 ####[facility]ORATORYCLIA [id number] [address] [place] Creatinine [Mass/Vol] 0.63 mg/dL Low 0.73-1.22 [facility] Comment on above: Order Comment: Speci men Type: BLOOD SPECIMENOrdering Facility: [facility] Address: [address] [place] [address] Performed By: #### 2 4321-2, , 2776-05 ####[facility]ORATORYCLIA [id number] [address] OF [facility] ESTIMATED GLOMERULAR FILTRATION RATE 103 mL/min/1.73m??? Normal >=60 [facility] Comment on above: Order Comment: Speci men Type: BLOOD SPECIMENOrdering Facility: [facility] Address: [address] [place] [address] Result Comment: Luzmaria mated Glomerular Filtration Rate [...] 4321-2, , 2776-05 ####[facility]ATORYCLIA [id number] [place] [address] [place] Glucose [Mass/Vol] 136 mg/dL High 74-99 [facility] Comment on above: Order Comment: Shira feldman Type: BLOOD SPECIMENOrdering Facility: [facility] Address: [address] [place], [place] [address] Result Comment: The [place] [employer] (ADA) provides guidance for cutoff [...] Standards of Medical Care in Diabetes 2016, [employer] [place] [employer]. Diabetes Care. 2016.39(Suppl 1). Performed By: #### 2 4321-2, , 2776-05 ####[facility]ORATORYCLIA [id number] [place] [address] [place] Potassium [Moles/Vol] 4.1 mmol/L Normal 3.7-5.1 [facility] Comment on above: Order Comment: Shira feldman Type: BLOOD SPECIMENOrdering Facility: [facility] Address: [address] [place] [address] Performed By: #### 2 4321-2, , 2776-05 ####[facility]ORATORYCLIA [id number] [place] [address] [place] Sodium [Moles/Vol] 133 mmol/L Low 136-144 [facility] Comment on above: Order Comment: Speci men Type: BLOOD SPECIMENOrdering Facility: [facility] Address: [address] [place] [address] Performed By: #### 2 4321-2, 95745-7, 2777-1 ####[facility]ORATORYCLIA [id number] [address] [place] Urea nitrogen [Mass/Vol] 40 mg/dL High 9-24 [facility] Comment on above: Order Comment: Speci men Type: BLOOD SPECIMENOrdering Facility: [facility] Address: [address] [place] [address] Performed By: #### 2 4321-2, , 27711-04 ####[facility]ORATORYCLIA [id number] [address] CASE MANAGEMon 08-03-2021 CASE MANAGEM Normal [facility] CBC W Auto Differential pane l (Bld)on 08-03-2021 Basophils (Bld) [#/Vol] 0.06 10*3/uL Normal <0.11 [facility] Comment on above: Order Comment: Speci men Type: BLOOD SPECIMENOrdering Facility: [facility] Address: [address] [place] [address] Performed By: #### 5 7021-8 ####[facility]ORATORYCLIA [id number] [address] [place] Basophils/100 WBC (Bld) 0.5 % Normal [facility] Comment on above: Order Comment: Speci men Type: BLOOD SPECIMENOrdering Facility: [facility] Address: [address] [place] [address] Performed By: #### 5 7021-8 ####[facility]ORATORYCLIA [id number] [address] [place] Differential cell count method Nom (Bld) Auto Normal [facility] Comment on above: Order Comment: Speci men Type: BLOOD SPECIMENOrdering Facility: [facility] Address: [address] [place] [address] Performed By: #### 5 7021-8 ####[facility]ORATORYCLIA [id number] [address] Eosinophils (Bld) [#/Vol] 0.23 10*3/uL Normal <0.46 [facility] Comment on above: Order Comment: Speci men Type: BLOOD SPECIMENOrdering Facility: [facility] Address: [address] [place] [address] Performed By: #### 5 7021-8 ####[facility]ORATORYCLIA [id number] [address] Eosinophils/100 WBC (Bld) 1.8 % Normal [facility] Comment on above: Order Comment: Speci men Type: BLOOD SPECIMENOrdering Facility: [facility] Address: [address] [place] [address] Performed By: #### 5 7021-8 ####[facility]ORATORYCLIA [id number] [address] Erythrocyte distribution width (RBC) [Ratio] 17.6 % High 11.5-15.0 [facility] Comment on above: Order Comment: Speci men Type: BLOOD SPECIMENOrdering Facility: [facility] Address: [address] [place] [address] Performed By: #### 5 7021-8 ####[facility]ORATORYCLIA [id number] [address] Hematocrit (Bld) [Volume fraction] 30.7 % Low 39.0-51.0 [facility] Comment on above: Order Comment: Speci men Type: BLOOD SPECIMENOrdering Facility: [facility] Address: [address] [place] [address] Performed By: #### 5 7021-8 ####[facility]ORATORYCLIA [id number] [place] [address] [place] Hemoglobin (Bld) [Mass/Vol] 9.3 g/dL Low 13.0-17.0 [facility] Comment on above: Order Comment: Speci men Type: BLOOD SPECIMENOrdering Facility: [facility] Address: [address] [place] [address] Performed By: #### 5 7021-8 ####[facility]ORATORYCLIA [id number] [address] [place] IMMATURE GRAN % 0.6 % Normal [facility] Comment on above: Order Comment: Speci men Type: BLOOD SPECIMENOrdering Facility: [facility] Address: [address] [place] [address] Performed By: #### 5 7021-8 ####[facility]ORATORYCLIA [id number] [address] OF [facility] IMMATURE GRAN ABS 0.08 k/uL Normal <0.10 [facility] Comment on above: Order Comment: Speci men Type: BLOOD SPECIMENOrdering Facility: [facility] Address: [address] [place] [address] Performed By: #### 5 7021-8 ####[facility]ORATORYCLIA [id number] [place] [address] [place] Lymphocytes (Bld) [#/Vol] 2.45 10*3/uL Normal 1.00-4.00 [facility] Comment on above: Order Comment: Speci men Type: BLOOD SPECIMENOrdering Facility: [facility] Address: [address] [place] [address] Performed By: #### 5 7021-8 ####[facility]ORATORYCLIA [id number] [address] [place] Lymphocytes/100 WBC (Bld) 19.7 % Normal [facility] Comment on above: Order Comment: Speci men Type: BLOOD SPECIMENOrdering Facility: [facility] Address: [address] [place] [address] Performed By: #### 5 7021-8 ####[facility]ORATORYCLIA [id number] [address] MCH (RBC) [Entitic mass] 28.2 pg Normal 26.0-34.0 [facility] Comment on above: Order Comment: Speci men Type: BLOOD SPECIMENOrdering Facility: [facility] Address: [address] [place] [address] Performed By: #### 5 7021-8 ####[facility]ORATORYCLIA [id number] [address] STATES [facility] MCHC (RBC) [Mass/Vol] 30.3 g/dL Low 30.5-36.0 [facility] Comment on above: Order Comment: Speci men Type: BLOOD SPECIMENOrdering Facility: [facility] Address: [address] [place] [address] Performed By: #### 5 7021-8 ####[facility]ORATORYCLIA [id number] [address] [facility] MCV (RBC) [Entitic vol] 93.0 fL Normal 80.0-100.0 [facility] Comment on above: Order Comment: Speci men Type: BLOOD SPECIMENOrdering Facility: [facility] Address: [address] [place] [address] Performed By: #### 5 7021-8 ####[facility]ORATORYCLIA [id number] [address] [place] [facility] Monocytes (Bld) [#/Vol] 0.72 10*3/uL Normal <0.87 [facility] Comment on above: Order Comment: Speci men Type: BLOOD SPECIMENOrdering Facility: [facility] Address: [address] [place] [address] Performed By: #### 5 7021-8 ####[facility]ORATORYCLIA [id number] [address] Monocytes/100 WBC (Bld) 5.8 % Normal [facility] Comment on above: Order Comment: Speci men Type: BLOOD SPECIMENOrdering Facility: [facility] Address: [address] [place] [address] Performed By: #### 5 7021-8 ####[facility]ORATORYCLIA [id number] [address] [place] Neutrophils (Bld) [#/Vol] 8.92 10*3/uL High 1.45-7.50 [facility] Comment on above: Order Comment: Speci men Type: BLOOD SPECIMENOrdering Facility: [facility] Address: [address] [place] [address] Performed By: #### 5 7021-8 ####[facility]ORATORYCLIA [id number] [address] STATES [facility] Neutrophils/100 WBC (Bld) 71.6 % Normal [facility] Comment on above: Order Comment: Speci men Type: BLOOD SPECIMENOrdering Facility: [facility] Address: [address] [place] [address] Performed By: #### 5 7021-8 ####[facility]ORATORYCLIA [id number] [address] [place] Nucleated RBC (Bld) [#/Vol] 10*3/uL Normal <0.01 [facility] Comment on above: Order Comment: Speci men Type: BLOOD SPECIMENOrdering Facility: [facility] Address: [address] [place] [address] Performed By: #### 5 7021-8 ####[facility]ORATORYCLIA [id number] [address] [place] Nucleated RBC/100 WBC (Bld) [Ratio] 0.0 /100 WBC Normal [facility] Comment on above: Order Comment: Speci men Type: BLOOD SPECIMENOrdering Facility: [facility] Address: [address] [place] [address] Performed By: #### 5 7021-8 ####[facility]ORATORYCLIA [id number] [address] [place] Platelet mean volume (Bld) [Entitic vol] 10.2 fL Normal 9.0-12.7 [facility] Comment on above: Order Comment: Speci men Type: BLOOD SPECIMENOrdering Facility: [facility] Address: [address] [place] [address] Performed By: #### 5 7021-8 ####[facility]ORATORYCLIA [id number] [address] [place] Platelets (Bld) [#/Vol] 352 10*3/uL Normal 150-400 [facility] Comment on above: Order Comment: Speci men Type: BLOOD SPECIMENOrdering Facility: [facility] Address: [address] [place] [address] Performed By: #### 5 7021-8 ####[facility]ORATORYCLIA [id number] [place] [address] [place] RBC (Bld) [#/Vol] 3.30 10*6/uL Low 4.20-6.00 [facility] Comment on above: Order Comment: Speci men Type: BLOOD SPECIMENOrdering Facility: [facility] Address: [address] [place] [address] Performed By: #### 5 7021-8 ####[facility]ORATORYCLIA [id number] [address] [facility] WBC (Bld) [#/Vol] 12.46 10*3/uL High 3.70-11.00 [facility] Comment on above: Order Comment: Speci men Type: BLOOD SPECIMENOrdering Facility: [facility] Address: [address] [place] [address] Performed By: #### 5 7021-8 ####[facility]ORATORYCLIA [id number] [address] [facility] CONSULT PROGon 08-03-2021 CONSULT PROG Normal [facility] Magnesium SerPl-mCncon 08-03 Magnesium [Mass/Vol] 2.2 mg/dL Normal 1.7-2.3 [facility] Comment on above: Order Comment: Speci men Type: BLOOD SPECIMENOrdering Facility: [facility] Address: [address] [place] [address] Performed By: #### 2 4321-2, 76513-4, 2777 ####[facility]ATORYCLIA [id number] [address] [place] [facility] NURSING PROGon 08-03-2021 NURSING PROG Normal [facility] Phosphate SerPl-mCncon 08-03 Phosphate [Mass/Vol] 4.2 mg/dL Normal 2.7-4.8 [facility] Comment on above: Order Comment: Speci men Type: BLOOD SPECIMENOrdering Facility: [facility] Address: [address] [place] [address] Performed By: #### 2 4321-2, , 2777 ####[facility]ORATORYCLIA [id number] [address] aPTT PPPon 08-03-2021 aPTT Coag (PPP) [Time] 50.0 s High 23.0-32.4 [facility] Comment on above: Order Comment: Speci men Type: BLOOD SPECIMENOrdering Facility: [facility] Address: [address] [place] [address] Performed By: #### 1 4979-9 ####[facility]ORATORYCLIA [id number] [address] [place] [facility] CBC W Auto Differential pane l (Bld)on 08-02-2021 Basophils (Bld) [#/Vol] 10*3/uL Normal <0.11 [facility] Comment on above: Order Comment: Speci men Type: BLOOD SPECIMENOrdering Facility: [facility] Address: [address] [place] [address] Performed By: #### 5 7021-8 ####[facility]ORATORYCLIA [id number] [address] Basophils/100 WBC (Bld) 0.2 % Normal [facility] Comment on above: Order Comment: Speci men Type: BLOOD SPECIMENOrdering Facility: [facility] Address: [address] [place] [address] Performed By: #### 5 7021-8 ####[facility]ORATORYCLIA [id number] [address] Differential cell count method Nom (Bld) Auto Normal [facility] Comment on above: Order Comment: Speci men Type: BLOOD SPECIMENOrdering Facility: [facility] Address: [address] [place] [address] Performed By: #### 5 7021-8 ####[facility]ORATORYCLIA [id number] [address] Eosinophils (Bld) [#/Vol] 10*3/uL Normal <0.46 [facility] Comment on above: Order Comment: Speci men Type: BLOOD SPECIMENOrdering Facility: [facility] Address: [address] [place] [address] Performed By: #### 5 7021-8 ####[facility]ORATORYCLIA [id number] [address] Eosinophils/100 WBC (Bld) 0.0 % Normal [facility] Comment on above: Order Comment: Speci men Type: BLOOD SPECIMENOrdering Facility: [facility] Address: [address] [place] [address] Performed By: #### 5 7021-8 ####[facility]ATORYCLIA [id number] [address] Erythrocyte distribution width (RBC) [Ratio] 17.3 % High 11.5-15.0 [facility] Comment on above: Order Comment: Speci men Type: BLOOD SPECIMENOrdering Facility: [facility] Address: [address] [place] [address] Performed By: #### 5 7021-8 ####[facility]ATORYCLIA [id number] [address] [place] Hematocrit (Bld) [Volume fraction] 30.8 % Low 39.0-51.0 [facility] Comment on above: Order Comment: Speci men Type: BLOOD SPECIMENOrdering Facility: [facility] Address: [address] [place] [address] Performed By: #### 5 7021-8 ####[facility]ORATORYCLIA [id number] [address] [place] Hemoglobin (Bld) [Mass/Vol] 9.7 g/dL Low 13.0-17.0 [facility] Comment on above: Order Comment: Speci men Type: BLOOD SPECIMENOrdering Facility: [facility] Address: [address] [place] [address] Performed By: #### 5 7021-8 ####[facility]ORATORYCLIA [id number] [address] [place] IMMATURE GRAN % 0.5 % Normal [facility] Comment on above: Order Comment: Speci men Type: BLOOD SPECIMENOrdering Facility: [facility] Address: [address] [place] [address] Performed By: #### 5 7021-8 ####[facility]ORATORYCLIA [id number] [address] IMMATURE GRAN ABS 0.07 k/uL Normal <0.10 [facility] Comment on above: Order Comment: Speci men Type: BLOOD SPECIMENOrdering Facility: [facility] Address: [address] [place] [address] Performed By: #### 5 7021-8 ####[facility]ORATORYCLIA [id number] [address] [place] Lymphocytes (Bld) [#/Vol] 1.60 10*3/uL Normal 1.00-4.00 [facility] Comment on above: Order Comment: Speci men Type: BLOOD SPECIMENOrdering Facility: [facility] Address: [address] [place] [address] Performed By: #### 5 7021-8 ####[facility]ORATORYCLIA [id number] [address] Lymphocytes/100 WBC (Bld) 12.1 % Normal [facility] Comment on above: Order Comment: Speci men Type: BLOOD SPECIMENOrdering Facility: [facility] Address: [address] [place] [address] Performed By: #### 5 7021-8 ####[facility]ORATORYCLIA [id number] [address] MCH (RBC) [Entitic mass] 28.6 pg Normal 26.0-34.0 [facility] Comment on above: Order Comment: Speci men Type: BLOOD SPECIMENOrdering Facility: [facility] Address: [address] [place] [address] Performed By: #### 5 7021-8 ####[facility]ORATORYCLIA [id number] [address] [place] [facility] MCHC (RBC) [Mass/Vol] 31.5 g/dL Normal 30.5-36.0 [facility] Comment on above: Order Comment: Speci men Type: BLOOD SPECIMENOrdering Facility: [facility] Address: [address] [place] [address] Performed By: #### 5 7021-8 ####[facility]ORATORYCLIA [id number] [address] MCV (RBC) [Entitic vol] 90.9 fL Normal 80.0-100.0 [facility] Comment on above: Order Comment: Speci men Type: BLOOD SPECIMENOrdering Facility: [facility] Address: [address] [place] [address] Performed By: #### 5 7021-8 ####[facility]ORATORYCLIA [id number] [address] Monocytes (Bld) [#/Vol] 0.39 10*3/uL Normal <0.87 [facility] Comment on above: Order Comment: Speci men Type: BLOOD SPECIMENOrdering Facility: [facility] Address: [address] [address] Performed By: #### 5 7021-8 ####[facility] LABORATORYCLIA [id number] [address] [place] Monocytes/100 WBC (Bld) 3.0 % Normal [facility] Comment on above: Order Comment: Speci men Type: BLOOD SPECIMENOrdering Facility: [facility] Address: [address] [place] [address] Performed By: #### 5 7021-8 ####[facility] LABORATORYCLIA [id number] [place] [address] [place] Neutrophils (Bld) [#/Vol] 11.09 10*3/uL High 1.45-7.50 [facility] Comment on above: Order Comment: Speci men Type: BLOOD SPECIMENOrdering Facility: [facility] Address: [address] [place] [address] Performed By: #### 5 7021-8 ####[facility]ORATORYCLIA [id number] [address] STATES [facility] Neutrophils/100 WBC (Bld) 84.2 % Normal [facility] Comment on above: Order Comment: Speci men Type: BLOOD SPECIMENOrdering Facility: [facility] Address: [address] [place] [address] Performed By: #### 5 7021-8 ####[facility]ORATORYCLIA [id number] [address] [place] Nucleated RBC (Bld) [#/Vol] 10*3/uL Normal <0.01 [facility] Comment on above: Order Comment: Speci men Type: BLOOD SPECIMENOrdering Facility: [facility] Address: [address] [place] [address] Performed By: #### 5 7021-8 ####[facility]ORATORYCLIA [id number] [address] [place] Nucleated RBC/100 WBC (Bld) [Ratio] 0.0 /100 WBC Normal [facility] Comment on above: Order Comment: Speci men Type: BLOOD SPECIMENOrdering Facility: [facility] Address: [address] [place] [address] Performed By: #### 5 7021-8 ####[facility]ORATORYCLIA [id number] [address] Platelet mean volume (Bld) [Entitic vol] 10.0 fL Normal 9.0-12.7 [facility] Comment on above: Order Comment: Speci men Type: BLOOD SPECIMENOrdering Facility: [facility] Address: [address] [place], [place] [address] Performed By: #### 5 7021-8 ####[facility]ORATORYCLIA [id number] [address] [place] Platelets (Bld) [#/Vol] 358 10*3/uL Normal 150-400 [facility] Comment on above: Order Comment: Speci men Type: BLOOD SPECIMENOrdering Facility: [facility] Address: [address] [place] [address] Performed By: #### 5 7021-8 ####[facility]ORATORYCLIA [id number] [address] [place] RBC (Bld) [#/Vol] 3.39 10*6/uL Low 4.20-6.00 [facility] Comment on above: Order Comment: Speci men Type: BLOOD SPECIMENOrdering Facility: [facility] Address: [address] [place], [place] [address] Performed By: #### 5 7021-8 ####[facility]ORATORYCLIA [id number] [address] [place] WBC (Bld) [#/Vol] 13.17 10*3/uL High 3.70-11.00 [facility] Comment on above: Order Comment: Speci men Type: BLOOD SPECIMENOrdering Facility: [facility] Address: [address] [place] [address] Performed By: #### 5 7021-8 ####[facility]ORATORYCLIA [id number] [address] [facility] NURSING PROGon 08-02-2021 NURSING PROG Normal [facility] THERAPY NTon 08-02-2021 THERAPY NT Normal [facility] aPTT PPPon 08-02-2021 aPTT Coag (PPP) [Time] 54.9 s High 23.0-32.4 [facility] Comment on above: Order Comment: Speci men Type: BLOOD SPECIMENOrdering Facility: [facility] Address: [address] [place] [address] Performed By: #### 1 4979-9 ####[facility]ORATORYCLIA [id number] [address] [facility] ALLIED HEALTHon 08-01-2021 ALLIED HEALTH Normal [facility] ALLIED HEALTH Normal [facility] Basic metabolic 2000 panelon 08-01-2021 Anion gap [Moles/Vol] 12 mmol/L Normal 9-18 [facility] Comment on above: Order Comment: Speci men Type: BLOOD SPECIMENOrdering Facility: [facility] Address: [address] [place] [address] Performed By: #### 2 4321-2, 35756-5, 48178-4, 2777-1 ####[facility] LABORATORYCLIA [id number] [place] [address] [place] Calcium [Mass/Vol] 9.1 mg/dL Normal 8.5-10.2 [facility] Comment on above: Order Comment: Speci men Type: BLOOD SPECIMENOrdering Facility: [facility] Address: [address] [place] [address] Performed By: #### 2 4321-2, 55682-5, 10633-9, 2777-1 ####[facility] LABORATORYCLIA [id number] [place] [address] [place] Chloride [Moles/Vol] 96 mmol/L Low 97-105 [facility] Comment on above: Order Comment: Speci men Type: BLOOD SPECIMENOrdering Facility: [facility] Address: [address] [place] [address] Performed By: #### 2 4321-2, 52091-9, 68746-4, 2777-1 ####[facility] [id number] [address] STATES [facility] CO2 [Moles/Vol] 27 mmol/L Normal 22-30 [facility] Comment on above: Order Comment: Speci men Type: BLOOD SPECIMENOrdering Facility: [facility] Address: [address] [place] [address] Performed By: #### 2 4321-2, 32558-7, 67900-5, 2777-1 ####[facility] [id number] [address] Creatinine [Mass/Vol] 0.64 mg/dL Low 0.73-1.22 [facility] Comment on above: Order Comment: Speci men Type: BLOOD SPECIMENOrdering Facility: [facility] Address: [address] [place] [address] Performed By: #### 2 4321-2, 05793-4, 02527-6, 2777- ####[facility]ITALIA [id number] [address] ESTIMATED GLOMERULAR FILTRATION RATE 102 mL/min/1.73m??? Normal >=60 [facility] Comment on above: Order Comment: Speci men Type: BLOOD SPECIMENOrdering Facility: [facility] Address: [address] [place] [address] Result Comment: Luzmaria mated Glomerular Filtration Rate [...] actual GFR. Performed By: #### 2 4321-2, 26443-2, 39915-8, 2777-1 ####[facility] LABORATORYCLIA [id number] [place] [address] [place] Glucose [Mass/Vol] 122 mg/dL High 74-99 [facility] Comment on above: Order Comment: Shira feldman Type: BLOOD SPECIMENOrdering Facility: [facility] Address: [address] [place], [place] [id number] Result Comment: The [place] [employer] (ADA) provides guidance for cutoff [...] Standards of Medical Care in Diabetes 2016, [employer] [place] [employer]. Diabetes Care. 2016.39(Suppl 1). Performed By: #### 2 4321-2, 82799-2, 25847-7, 2777-1 ####[facility] LABORATORYCLIA [id number] [place] [address] [place] Potassium [Moles/Vol] 4.2 mmol/L Normal 3.7-5.1 [facility] Comment on above: Order Comment: Shira feldman Type: BLOOD SPECIMENOrdering Facility: [facility] Address: [address] [place], [place] [id number] Performed By: #### 2 4321-2, 04977-3, 07753-2, 2777-1 ####[facility] LABORATORYCLIA [id number] [place] [address] [place] Sodium [Moles/Vol] 135 mmol/L Low 136-144 [facility] Comment on above: Order Comment: Shira feldman Type: BLOOD SPECIMENOrdering Facility: [facility] Address: [address] [id number] Performed By: #### 2 4321-2, 57938-0, 46844-3, 2777-1 ####[facility] LABORATORYCLIA [id number] [place] [address] [place] Urea nitrogen [Mass/Vol] 36 mg/dL High 9-24 [facility] Comment on above: Order Comment: Speci men Type: BLOOD SPECIMENOrdering Facility: [facility] Address: [address] [place] [address] Performed By: #### 2 4321-2, 60334-3, 28043-9, 2777-1 ####[facility] LABORATORYCLIA [id number] [address] [place] CASE MANAGEMon 08-01-2021 CASE MANAGEM Normal [facility] CBC W Auto Differential pane l (Bld)on 08-01-2021 Basophils (Bld) [#/Vol] 0.04 10*3/uL Normal <0.11 [facility] Comment on above: Order Comment: Speci men Type: BLOOD SPECIMENOrdering Facility: [facility] Address: [address] [place] [address] Performed By: #### 5 7021-8 ####[facility] LABORATORYCLIA [id number] [address] [place] Basophils/100 WBC (Bld) 0.3 % Normal [facility] Comment on above: Order Comment: Speci men Type: BLOOD SPECIMENOrdering Facility: [facility] Address: [address] [place] [address] Performed By: #### 5 7021-8 ####[facility] LABORATORYCLIA [id number] [address] [place] Differential cell count method Nom (Bld) Auto Normal [facility] Comment on above: Order Comment: Speci men Type: BLOOD SPECIMENOrdering Facility: [facility] Address: [address] [place] [address] Performed By: #### 5 7021-8 ####[facility] LABORATORYCLIA [id number] [place] [address] [place] Eosinophils (Bld) [#/Vol] 0.37 10*3/uL Normal <0.46 [facility] Comment on above: Order Comment: Speci men Type: BLOOD SPECIMENOrdering Facility: [facility] Address: [address] [place] [address] Performed By: #### 5 7021-8 ####[facility] LABORATORYCLIA [id number] [address] Eosinophils/100 WBC (Bld) 3.1 % Normal [facility] Comment on above: Order Comment: Speci men Type: BLOOD SPECIMENOrdering Facility: [facility] Address: [address] [place] [address] Performed By: #### 5 7021-8 ####[facility] LABORATORYCLIA [id number] [address] [place] Erythrocyte distribution width (RBC) [Ratio] 17.5 % High 11.5-15.0 [facility] Comment on above: Order Comment: Speci men Type: BLOOD SPECIMENOrdering Facility: [facility] Address: [address] [place] [address] Performed By: #### 5 7021-8 ####[facility] LABORATORYCLIA [id number] [address] STATES OF [facility] Hematocrit (Bld) [Volume fraction] 30.1 % Low 39.0-51.0 [facility] Comment on above: Order Comment: Speci men Type: BLOOD SPECIMENOrdering Facility: [facility] Address: [address] [place] [address] Performed By: #### 5 7021-8 ####[facility] LABORATORYCLIA [id number] [address] [place] Hemoglobin (Bld) [Mass/Vol] 9.1 g/dL Low 13.0-17.0 [facility] Comment on above: Order Comment: Speci men Type: BLOOD SPECIMENOrdering Facility: [facility] Address: [address] [place] [address] Performed By: #### 5 7021-8 ####[facility]ORATORYCLIA [id number] [address] IMMATURE GRAN % 0.6 % Normal [facility] Comment on above: Order Comment: Speci men Type: BLOOD SPECIMENOrdering Facility: [facility] Address: [address] [place] [address] Performed By: #### 5 7021-8 ####[facility] LABORATORYCLIA [id number] [address] IMMATURE GRAN ABS 0.07 k/uL Normal <0.10 [facility] Comment on above: Order Comment: Speci men Type: BLOOD SPECIMENOrdering Facility: [facility] Address: [address] [place] [address] Performed By: #### 5 7021-8 ####[facility] LABORATORYCLIA [id number] [address] STATES [facility] Lymphocytes (Bld) [#/Vol] 2.05 10*3/uL Normal 1.00-4.00 [facility] Comment on above: Order Comment: Speci men Type: BLOOD SPECIMENOrdering Facility: [facility] Address: [address] [place] [address] Performed By: #### 5 7021-8 ####[facility]ORATORYCLIA [id number] [address] Lymphocytes/100 WBC (Bld) 17.1 % Normal [facility] Comment on above: Order Comment: Speci men Type: BLOOD SPECIMENOrdering Facility: [facility] Address: [address] [place] [address] Performed By: #### 5 7021-8 ####[facility]ORATORYCLIA [id number] [address] STATES [facility] MCH (RBC) [Entitic mass] 27.7 pg Normal 26.0-34.0 [facility] Comment on above: Order Comment: Speci men Type: BLOOD SPECIMENOrdering Facility: [facility] Address: [address] [place] [address] Performed By: #### 5 7021-8 ####[facility]ORATORYCLIA [id number] [address] STATES [facility] MCHC (RBC) [Mass/Vol] 30.2 g/dL Low 30.5-36.0 [facility] Comment on above: Order Comment: Speci men Type: BLOOD SPECIMENOrdering Facility: [facility] Address: [address] [place] [address] Performed By: #### 5 7021-8 ####[facility]ORATORYCLIA [id number] [address] STATES OF [facility] MCV (RBC) [Entitic vol] 91.5 fL Normal 80.0-100.0 [facility] Comment on above: Order Comment: Speci men Type: BLOOD SPECIMENOrdering Facility: [facility] Address: [address] [place] [address] Performed By: #### 5 7021-8 ####[facility] LABORATORYCLIA [id number] [address] STATES [place] [facility] Monocytes (Bld) [#/Vol] 0.53 10*3/uL Normal <0.87 [facility] Comment on above: Order Comment: Speci men Type: BLOOD SPECIMENOrdering Facility: [facility] Address: [address] [place] [address] Performed By: #### 5 7021-8 ####[facility] LABORATORYCLIA [id number] [address] Monocytes/100 WBC (Bld) 4.4 % Normal [facility] Comment on above: Order Comment: Speci men Type: BLOOD SPECIMENOrdering Facility: [facility] Address: [address] [place] [address] Performed By: #### 5 7021-8 ####[facility] LABORATORYCLIA [id number] [address] [place] Neutrophils (Bld) [#/Vol] 8.91 10*3/uL High 1.45-7.50 [facility] Comment on above: Order Comment: Speci men Type: BLOOD SPECIMENOrdering Facility: [facility] Address: [address] [place] [address] Performed By: #### 5 7021-8 ####[facility] LABORATORYCLIA [id number] [address] Neutrophils/100 WBC (Bld) 74.5 % Normal [facility] Comment on above: Order Comment: Speci men Type: BLOOD SPECIMENOrdering Facility: [facility] Address: [address] [place] [address] Performed By: #### 5 7021-8 ####[facility] LABORATORYCLIA [id number] [address] [place] Nucleated RBC (Bld) [#/Vol] 10*3/uL Normal <0.01 [facility] Comment on above: Order Comment: Speci men Type: BLOOD SPECIMENOrdering Facility: [facility] Address: [address] [place] [address] Performed By: #### 5 7021-8 ####[facility] LABORATORYCLIA [id number] [address] Nucleated RBC/100 WBC (Bld) [Ratio] 0.0 /100 WBC Normal [facility] Comment on above: Order Comment: Speci men Type: BLOOD SPECIMENOrdering Facility: [facility] Address: [address] [place] [address] Performed By: #### 5 7021-8 ####[facility] LABORATORYCLIA [id number] [address] [place] Platelet mean volume (Bld) [Entitic vol] 10.4 fL Normal 9.0-12.7 [facility] Comment on above: Order Comment: Speci men Type: BLOOD SPECIMENOrdering Facility: [facility] Address: [address] [place] [address] Performed By: #### 5 7021-8 ####[facility]ORATORYCLIA [id number] [address] OF [facility] Platelets (Bld) [#/Vol] 319 10*3/uL Normal 150-400 [facility] Comment on above: Order Comment: Speci men Type: BLOOD SPECIMENOrdering Facility: [facility] Address: [address] [place] [address] Performed By: #### 5 7021-8 ####[facility] LABORATORYCLIA [id number] [place] [address] [place] RBC (Bld) [#/Vol] 3.29 10*6/uL Low 4.20-6.00 [facility] Comment on above: Order Comment: Speci men Type: BLOOD SPECIMENOrdering Facility: [facility] Address: [address] [place] [address] Performed By: #### 5 7021-8 ####[facility]ORATORYCLIA [id number] [address] WBC (Bld) [#/Vol] 11.97 10*3/uL High 3.70-11.00 [facility] Comment on above: Order Comment: Speci men Type: BLOOD SPECIMENOrdering Facility: [facility] Address: [address] [place] [address] Performed By: #### 5 7021-8 ####[facility]ORATORYCLIA [id number] [address] [place] CT BRAIN WO IVCONon 08-02-19 CT BRAIN WO IVCON Normal [facility] Magnesium SerPl-mCncon 08-01 Magnesium [Mass/Vol] 2.4 mg/dL High 1.7-2.3 [facility] Comment on above: Order Comment: Speci men Type: BLOOD SPECIMENOrdering Facility: [facility] Address: [address] [place] [address] Performed By: #### 2 4321-2, 45773-1, 21510-5, 2777-1 ####[facility]ORATORYCLIA [id number] [address] NURSING PROGon 08-01-2021 NURSING PROG Normal [facility] NUTRITIONon 08-01-2021 NUTRITION Normal [facility] Phosphate SerPl-mCncon 08-01 Phosphate [Mass/Vol] 3.3 mg/dL Normal 2.7-4.8 [facility] Comment on above: Order Comment: Speci men Type: BLOOD SPECIMENOrdering Facility: [facility] Address: [address] [place] [address] Performed By: #### 2 4321-2, 27603-1, 79171-7, 2777-1 ####[facility]ORATORYCLIA [id number] [address] Prealbumin [Mass/Vol]on 07-06 Prealbumin Nephelometry [Mass/Vol] 30 mg/dL Normal 17-36 [facility] Comment on above: Order Comment: Speci men Type: BLOOD SPECIMENOrdering Facility: [facility] Address: [address] [place] [address] Performed By: #### 2 4321-2, 93191-8, 86754-9, 2777-1 ####[facility] LABORATORYCLIA [id number] [address] THERAPY NTon 08-01-2021 THERAPY NT Normal [facility] THERAPY NT Normal [facility] TYPE AND SCREENon 08-01-2021 ABO O Normal [facility] Comment on above: Order Comment: Speci men Type: BLOOD SPECIMENOrdering Facility: [facility] Address: [address] [place] [address] Performed By: #### T SCR ####[facility] BLOOD BANKCLIA [id number] [address] HISTORICAL AB SCR STATUS Negative Normal [facility] Comment on above: Order Comment: Speci men Type: BLOOD SPECIMENOrdering Facility: [facility] Address: [address] [place] [address] Performed By: #### T SCR ####[facility] BLOOD BANKCLIA [id number] [address] Rh Nom (Bld) Positive Normal [facility] Comment on above: Order Comment: Speci men Type: BLOOD SPECIMENOrdering Facility: [facility] Address: [address] [place] [address] Performed By: #### T SCR ####[facility] BLOOD BANKCLIA [id number] [address] TYPE AND SCREEN EXPIRATION 08/04/2021 23:59 Normal [facility] Comment on above: Order Comment: Speci men Type: BLOOD SPECIMENOrdering Facility: [facility] Address: [address] [place] [address] Performed By: #### T SCR ####[facility] BLOOD BANKCLIA [id number] [address] XR CHEST 1V FRONTALon 2021 XR CHEST 1V FRONTAL Normal [facility] aPTT PPPon 08-01-2021 aPTT Coag (PPP) [Time] 50.9 s High 23.0-32.4 [facility] Comment on above: Order Comment: Speci men Type: BLOOD SPECIMENOrdering Facility: [facility] Address: [address] [place] [address] Performed By: #### 1 4979-9 ####[facility] LABORATORYCLIA [id number] [address] CBC W Auto Differential pane l (Bld)on 07-31-2021 Basophils (Bld) [#/Vol] 0.05 10*3/uL Normal <0.11 [facility] Comment on above: Order Comment: Speci men Type: BLOOD SPECIMENOrdering Facility: [facility] Address: [address] [place] [address] Performed By: #### 5 7021-8 ####[facility] LABORATORYCLIA [id number] [address] Basophils/100 WBC (Bld) 0.4 % Normal [facility] Comment on above: Order Comment: Speci men Type: BLOOD SPECIMENOrdering Facility: [facility] Address: [address] [place] [address] Performed By: #### 5 7021-8 ####[facility] LABORATORYCLIA [id number] [address] [place] Differential cell count method Nom (Bld) Auto Normal [facility] Comment on above: Order Comment: Speci men Type: BLOOD SPECIMENOrdering Facility: [facility] Address: [address] [place] [address] Performed By: #### 5 7021-8 ####[facility] LABORATORYCLIA [id number] [address] [place] Eosinophils (Bld) [#/Vol] 0.51 10*3/uL High <0.46 [facility] Comment on above: Order Comment: Speci men Type: BLOOD SPECIMENOrdering Facility: [facility] Address: [address] [place] [address] Performed By: #### 5 7021-8 ####[facility] LABORATORYCLIA [id number] [address] Eosinophils/100 WBC (Bld) 4.5 % Normal [facility] Comment on above: Order Comment: Speci men Type: BLOOD SPECIMENOrdering Facility: [facility] Address: [address] [place] [address] Performed By: #### 5 7021-8 ####[facility] LABORATORYCLIA [id number] [address] [place] Erythrocyte distribution width (RBC) [Ratio] 17.5 % High 11.5-15.0 [facility] Comment on above: Order Comment: Speci men Type: BLOOD SPECIMENOrdering Facility: [facility] Address: [address] [place] [address] Performed By: #### 5 7021-8 ####[facility] LABORATORYCLIA [id number] [address] Hematocrit (Bld) [Volume fraction] 30.4 % Low 39.0-51.0 [facility] Comment on above: Order Comment: Speci men Type: BLOOD SPECIMENOrdering Facility: [facility] Address: [address] [place] [address] Performed By: #### 5 7021-8 ####[facility] LABORATORYCLIA [id number] [address] [place] Hemoglobin (Bld) [Mass/Vol] 9.2 g/dL Low 13.0-17.0 [facility] Comment on above: Order Comment: Speci men Type: BLOOD SPECIMENOrdering Facility: [facility] Address: [address] [place] [address] Performed By: #### 5 7021-8 ####[facility] LABORATORYCLIA [id number] [address] IMMATURE GRAN % 0.5 % Normal [facility] Comment on above: Order Comment: Speci men Type: BLOOD SPECIMENOrdering Facility: [facility] Address: [address] [place] [address] Performed By: #### 5 7021-8 ####[facility] LABORATORYCLIA [id number] [address] IMMATURE GRAN ABS 0.06 k/uL Normal <0.10 [facility] Comment on above: Order Comment: Speci men Type: BLOOD SPECIMENOrdering Facility: [facility] Address: [address] [place] [address] Performed By: #### 5 7021-8 ####[facility] LABORATORYCLIA [id number] [address] [place] Lymphocytes (Bld) [#/Vol] 1.99 10*3/uL Normal 1.00-4.00 [facility] Comment on above: Order Comment: Speci men Type: BLOOD SPECIMENOrdering Facility: [facility] Address: [address] [place] [address] Performed By: #### 5 7021-8 ####[facility] LABORATORYCLIA [id number] [address] Lymphocytes/100 WBC (Bld) 17.6 % Normal [facility] Comment on above: Order Comment: Speci men Type: BLOOD SPECIMENOrdering Facility: [facility] Address: [address] [place] [address] Performed By: #### 5 7021-8 ####[facility] LABORATORYCLIA [id number] [address] MCH (RBC) [Entitic mass] 28.4 pg Normal 26.0-34.0 [facility] Comment on above: Order Comment: Speci men Type: BLOOD SPECIMENOrdering Facility: [facility] Address: [address] [place] [address] Performed By: #### 5 7021-8 ####[facility] LABORATORYCLIA [id number] [address] MCHC (RBC) [Mass/Vol] 30.3 g/dL Low 30.5-36.0 [facility] Comment on above: Order Comment: Speci men Type: BLOOD SPECIMENOrdering Facility: [facility] Address: [address] [place] [address] Performed By: #### 5 7021-8 ####[facility] LABORATORYCLIA [id number] [address] MCV (RBC) [Entitic vol] 93.8 fL Normal 80.0-100.0 [facility] Comment on above: Order Comment: Speci men Type: BLOOD SPECIMENOrdering Facility: [facility] Address: [address] [place] [address] Performed By: #### 5 7021-8 ####[facility] LABORATORYCLIA [id number] [address] Monocytes (Bld) [#/Vol] 0.57 10*3/uL Normal <0.87 [facility] Comment on above: Order Comment: Speci men Type: BLOOD SPECIMENOrdering Facility: [facility] Address: [address] [place] [address] Performed By: #### 5 7021-8 ####[facility] LABORATORYCLIA [id number] [address] [place] Monocytes/100 WBC (Bld) 5.0 % Normal [facility] Comment on above: Order Comment: Speci men Type: BLOOD SPECIMENOrdering Facility: [facility] Address: [address] [place] [address] Performed By: #### 5 7021-8 ####[facility] LABORATORYCLIA [id number] [place] [address] [place] Neutrophils (Bld) [#/Vol] 8.12 10*3/uL High 1.45-7.50 [facility] Comment on above: Order Comment: Speci men Type: BLOOD SPECIMENOrdering Facility: [facility] Address: [address] [place] [address] Performed By: #### 5 7021-8 ####[facility] LABORATORYCLIA [id number] [address] [place] Neutrophils/100 WBC (Bld) 72.0 % Normal [facility] Comment on above: Order Comment: Speci men Type: BLOOD SPECIMENOrdering Facility: [facility] Address: [address] [place] [address] Performed By: #### 5 7021-8 ####[facility] LABORATORYCLIA [id number] [place] [address] [place] Nucleated RBC (Bld) [#/Vol] 10*3/uL Normal <0.01 [facility] Comment on above: Order Comment: Speci men Type: BLOOD SPECIMENOrdering Facility: [facility] Address: [address] [place] [address] Performed By: #### 5 7021-8 ####[facility] LABORATORYCLIA [id number] [address] [place] Nucleated RBC/100 WBC (Bld) [Ratio] 0.0 /100 WBC Normal [facility] Comment on above: Order Comment: Speci men Type: BLOOD SPECIMENOrdering Facility: [facility] Address: [address] [place] [address] Performed By: #### 5 7021-8 ####[facility] LABORATORYCLIA [id number] [place] [address] [place] Platelet mean volume (Bld) [Entitic vol] 10.9 fL Normal 9.0-12.7 [facility] Comment on above: Order Comment: Speci men Type: BLOOD SPECIMENOrdering Facility: [facility] Address: [address] [place] [address] Performed By: #### 5 7021-8 ####[facility] LABORATORYCLIA [id number] [place] [address] [place] Platelets (Bld) [#/Vol] 303 10*3/uL Normal 150-400 [facility] Comment on above: Order Comment: Speci men Type: BLOOD SPECIMENOrdering Facility: [facility] [facility] Address: [address] [place] [address] Performed By: #### 5 7021-8 ####[facility] LABORATORYCLIA [id number] [place] [address] [place] RBC (Bld) [#/Vol] 3.24 10*6/uL Low 4.20-6.00 [facility] Comment on above: Order Comment: Speci men Type: BLOOD SPECIMENOrdering Facility: [facility] Address: [address] [place] [address] Performed By: #### 5 7021-8 ####[facility] LABORATORYCLIA [id number] [place] [address] [place] WBC (Bld) [#/Vol] 11.30 10*3/uL High 3.70-11.00 [facility] Comment on above: Order Comment: Speci men Type: BLOOD SPECIMENOrdering Facility: [facility] Address: [address] [place] [address] Performed By: #### 5 7021-8 ####[facility] LABORATORYCLIA [id number] [address] NURSING PROGon 07-31-2021 NURSING PROG Normal [facility] aPTT PPPon 07-31-2021 aPTT Coag (PPP) [Time] 64.9 s High 23.0-32.4 [facility] Comment on above: Order Comment: Speci men Type: BLOOD SPECIMENOrdering Facility: [facility] Address: [address] [place] [address] Performed By: #### 1 4979-9 ####[facility] LABORATORYCLIA [id number] [address] OF [facility] ALLIED HEALTHon 07-30-2021 ALLIED HEALTH Normal [facility] Bacteria CSF Culton 07-31-19 22 Bacteria identified Cx Nom (CSF) CULTURE, CSF: No growth 14 days GRAM STAIN: No organisms seen Few Mononuclear cells Rare Polymorphonuclear leukocytes Gram stain performed on cytospun specimen. Normal [facility] Comment on above: Performed By: #### 6 06-4 ####[facility]ORATORYCLIA [id number] [place] [address] [place] Basic metabolic 2000 panelon 07-30-2021 Anion gap [Moles/Vol] 9 mmol/L Normal 9-18 [facility] Comment on above: Order Comment: Speci men Type: BLOOD SPECIMENOrdering Facility: [facility] Address: [address] [place] [address] Performed By: #### 2 777-1, 90828-2, 99266-1 ####[facility] LABORATORYCLIA [id number] [address] STATES [facility] Calcium [Mass/Vol] 8.9 mg/dL Normal 8.5-10.2 [facility] Comment on above: Order Comment: Speci men Type: BLOOD SPECIMENOrdering Facility: [facility] Address: [address] [place] [address] Performed By: #### 2 777-1, 48829-6, ####[facility]ORATORYCLIA [id number] [place] [address] [place] Chloride [Moles/Vol] 95 mmol/L Low 97-105 [facility] Comment on above: Order Comment: Speci men Type: BLOOD SPECIMENOrdering Facility: [facility] Address: [address] [place] [address] Performed By: #### 2 777-1, 96903-8, ####[facility]ORATORYCLIA [id number] [place] [id number] [place] CO2 [Moles/Vol] 28 mmol/L Normal 22-30 [facility] Comment on above: Order Comment: Speci men Type: BLOOD SPECIMENOrdering Facility: [facility] Address: [address] [place] [address] Performed By: #### 2 777-1, , ####[facility] [id number] [address] [facility] Creatinine [Mass/Vol] 0.67 mg/dL Low 0.73-1.22 [facility] Comment on above: Order Comment: Speci men Type: BLOOD SPECIMENOrdering Facility: [facility] Address: [address] [place] [address] Performed By: #### 2 777-1, , ####[facility]ORATORYCLIA [id number] [address] ESTIMATED GLOMERULAR FILTRATION RATE 101 mL/min/1.73m??? Normal >=60 [facility] Comment on above: Order Comment: Speci men Type: BLOOD SPECIMENOrdering Facility: [facility] Address: [address] [place] [address] Result Comment: Luzmaria mated Glomerular Filtration Rate [...] actual GFR. Performed By: #### 2 777-1, 88274-5, ####[facility]ORATORYCLIA [id number] [place] [address] [place] Glucose [Mass/Vol] 125 mg/dL High 74-99 [facility] Comment on above: Order Comment: Shira feldman Type: BLOOD SPECIMENOrdering Facility: [facility] Address: [address] [place], [place] [id number] Result Comment: The [place] [employer] (ADA) provides guidance for cutoff [...] Standards of Medical Care in Diabetes 2016, [employer] [place] [employer]. Diabetes Care. 2016.39(Suppl 1). Performed By: #### 2 777-1, 35766-9, ####[facility]ORATORYCLIA [id number] [place] [address] [place] Potassium [Moles/Vol] 3.9 mmol/L Normal 3.7-5.1 [facility] Comment on above: Order Comment: Shira feldman Type: BLOOD SPECIMENOrdering Facility: [facility] Address: [address] [place] [address] Performed By: #### 2 777-1, 57558-8, ####[facility]ORATORYCLIA [id number] [place] [address] [place] Sodium [Moles/Vol] 132 mmol/L Low 136-144 [facility] Comment on above: Order Comment: Speci men Type: BLOOD SPECIMENOrdering Facility: [facility] Address: [address] [place] [address] Performed By: #### 2 777-1, 29711-2, ####[facility]ORATORYCLIA [id number] [address] STATES [facility] Urea nitrogen [Mass/Vol] 38 mg/dL High 9-24 [facility] Comment on above: Order Comment: Speci men Type: BLOOD SPECIMENOrdering Facility: [facility] Address: [address] [place] [address] Performed By: #### 2 777-1, 07191-7, ####[facility]ORATORYCLIA [id number] [address] [place] CBC W Auto Differential pane l (Bld)on 07-30-2021 Basophils (Bld) [#/Vol] 0.04 10*3/uL Normal <0.11 [facility] Comment on above: Order Comment: Speci men Type: BLOOD SPECIMENOrdering Facility: [facility] Address: [address] [place] [address] Performed By: #### 5 7021-8 ####[facility]ORATORYCLIA [id number] [address] [place] Basophils/100 WBC (Bld) 0.4 % Normal [facility] Comment on above: Order Comment: Speci men Type: BLOOD SPECIMENOrdering Facility: [facility] Address: [address] [place] [address] Performed By: #### 5 7021-8 ####[facility]ORATORYCLIA [id number] [address] Differential cell count method Nom (Bld) Auto Normal [facility] Comment on above: Order Comment: Speci men Type: BLOOD SPECIMENOrdering Facility: [facility] Address: [address] [place] [address] Performed By: #### 5 7021-8 ####[facility]ORATORYCLIA [id number] [address] [place] Eosinophils (Bld) [#/Vol] 0.30 10*3/uL Normal <0.46 [facility] Comment on above: Order Comment: Speci men Type: BLOOD SPECIMENOrdering Facility: [facility] Address: [address] [place] [address] Performed By: #### 5 7021-8 ####[facility]ORATORYCLIA [id number] [address] Eosinophils/100 WBC (Bld) 2.7 % Normal [facility] Comment on above: Order Comment: Speci men Type: BLOOD SPECIMENOrdering Facility: [facility] Address: [address] [place] [address] Performed By: #### 5 7021-8 ####[facility]ORATORYCLIA [id number] [address] Erythrocyte distribution width (RBC) [Ratio] 17.2 % High 11.5-15.0 [facility] Comment on above: Order Comment: Speci men Type: BLOOD SPECIMENOrdering Facility: [facility] Address: [address] [place] [address] Performed By: #### 5 7021-8 ####[facility]ORATORYCLIA [id number] [address] [place] Hematocrit (Bld) [Volume fraction] 30.8 % Low 39.0-51.0 [facility] Comment on above: Order Comment: Speci men Type: BLOOD SPECIMENOrdering Facility: [facility] Address: [address] [place] [address] Performed By: #### 5 7021-8 ####[facility]ORATORYCLIA [id number] [address] Hemoglobin (Bld) [Mass/Vol] 9.4 g/dL Low 13.0-17.0 [facility] Comment on above: Order Comment: Speci men Type: BLOOD SPECIMENOrdering Facility: [facility] Address: [address] [place] [address] Performed By: #### 5 7021-8 ####[facility]ORATORYCLIA [id number] [address] IMMATURE GRAN % 0.5 % Normal [facility] Comment on above: Order Comment: Speci men Type: BLOOD SPECIMENOrdering Facility: [facility] Address: [address] [place] [address] Performed By: #### 5 7021-8 ####[facility]ORATORYCLIA [id number] [address] IMMATURE GRAN ABS 0.06 k/uL Normal <0.10 [facility] Comment on above: Order Comment: Speci men Type: BLOOD SPECIMENOrdering Facility: [facility] Address: [address] [place] [address] Performed By: #### 5 7021-8 ####[facility]ORATORYCLIA [id number] [address] Lymphocytes (Bld) [#/Vol] 1.68 10*3/uL Normal 1.00-4.00 [facility] Comment on above: Order Comment: Speci men Type: BLOOD SPECIMENOrdering Facility: [facility] Address: [address] [place] [address] Performed By: #### 5 7021-8 ####[facility]ORATORYCLIA [id number] [address] Lymphocytes/100 WBC (Bld) 15.3 % Normal [facility] Comment on above: Order Comment: Speci men Type: BLOOD SPECIMENOrdering Facility: [facility] Address: [address] [place] [address] Performed By: #### 5 7021-8 ####[facility]ORATORYCLIA [id number] [address] [place] MCH (RBC) [Entitic mass] 28.0 pg Normal 26.0-34.0 [facility] Comment on above: Order Comment: Speci men Type: BLOOD SPECIMENOrdering Facility: [facility] Address: [address] [place] [address] Performed By: #### 5 7021-8 ####[facility]ORATORYCLIA [id number] [address] MCHC (RBC) [Mass/Vol] 30.5 g/dL Normal 30.5-36.0 [facility] Comment on above: Order Comment: Speci men Type: BLOOD SPECIMENOrdering Facility: [facility] Address: [address] [place] [address] Performed By: #### 5 7021-8 ####[facility]ORATORYCLIA [id number] [address] MCV (RBC) [Entitic vol] 91.7 fL Normal 80.0-100.0 [facility] Comment on above: Order Comment: Speci men Type: BLOOD SPECIMENOrdering Facility: [facility] Address: [address] [place] [address] Performed By: #### 5 7021-8 ####[facility]ORATORYCLIA [id number] [address] Monocytes (Bld) [#/Vol] 0.53 10*3/uL Normal <0.87 [facility] Comment on above: Order Comment: Speci men Type: BLOOD SPECIMENOrdering Facility: [facility] Address: [address] [place] [address] Performed By: #### 5 7021-8 ####[facility]ORATORYCLIA [id number] [address] Monocytes/100 WBC (Bld) 4.8 % Normal [facility] Comment on above: Order Comment: Speci men Type: BLOOD SPECIMENOrdering Facility: [facility] Address: [address] [place] [address] Performed By: #### 5 7021-8 ####[facility]ORATORYCLIA [id number] [place] [address] [place] Neutrophils (Bld) [#/Vol] 8.39 10*3/uL High 1.45-7.50 [facility] Comment on above: Order Comment: Speci men Type: BLOOD SPECIMENOrdering Facility: [facility] Address: [address] [place] [address] Performed By: #### 5 7021-8 ####[facility]ORATORYCLIA [id number] [address] [place] Neutrophils/100 WBC (Bld) 76.3 % Normal [facility] Comment on above: Order Comment: Speci men Type: BLOOD SPECIMENOrdering Facility: [facility] Address: [address] [place] [address] Performed By: #### 5 7021-8 ####[facility]ORATORYCLIA [id number] [address] [place] Nucleated RBC (Bld) [#/Vol] 10*3/uL Normal <0.01 [facility] Comment on above: Order Comment: Speci men Type: BLOOD SPECIMENOrdering Facility: [facility] Address: [address] [place] [address] Performed By: #### 5 7021-8 ####[facility]ORATORYCLIA [id number] [address] [place] Nucleated RBC/100 WBC (Bld) [Ratio] 0.0 /100 WBC Normal [facility] Comment on above: Order Comment: Speci men Type: BLOOD SPECIMENOrdering Facility: [facility] Address: [address] [place] [address] Performed By: #### 5 7021-8 ####[facility]ORATORYCLIA [id number] [address] [place] Platelet mean volume (Bld) [Entitic vol] 10.9 fL Normal 9.0-12.7 [facility] Comment on above: Order Comment: Speci men Type: BLOOD SPECIMENOrdering Facility: [facility] Address: [address] [place] [address] Performed By: #### 5 7021-8 ####[facility]ORATORYCLIA [id number] [address] Platelets (Bld) [#/Vol] 287 10*3/uL Normal 150-400 [facility] Comment on above: Order Comment: Speci men Type: BLOOD SPECIMENOrdering Facility: [facility] Address: [address] [place] [address] Performed By: #### 5 7021-8 ####[facility]ORATORYCLIA [id number] [address] [facility] RBC (Bld) [#/Vol] 3.36 10*6/uL Low 4.20-6.00 [facility] Comment on above: Order Comment: Speci men Type: BLOOD SPECIMENOrdering Facility: [facility] Address: [address] [place] [address] Performed By: #### 5 7021-8 ####[facility]ORATORYCLIA [id number] [address] WBC (Bld) [#/Vol] 11.00 10*3/uL Normal 3.70-11.00 [facility] Comment on above: Order Comment: Speci men Type: BLOOD SPECIMENOrdering Facility: [facility] Address: [address] [place] [address] Performed By: #### 5 7021-8 ####[facility]ORATORYCLIA [id number] [address] CSF MANUAL DIFFon 07-30-2021 DIF TTL, CSF 100 cells counted Normal [facility] Comment on above: Order Comment: Speci men Type: CEREBROSPINAL FLUIDOrdering Facility: [facility] Address: [address] [place] [address] Performed By: #### L MR2012, HDG9531, 15157-6 ####[facility]ORATORYCLIA [id number] [address] EOSIN%, CSF 0 % Normal [facility] Comment on above: Order Comment: Speci men Type: CEREBROSPINAL FLUIDOrdering Facility: [facility] Address: [address] [place] [address] Performed By: #### L [id number], FJF1209, 63715-5 ####[facility]ORATORYCLIA [id number] [place] [address] [place] LYMPH%, CSF 75 % Normal 50-90 [facility] Comment on above: Order Comment: Speci men Type: CEREBROSPINAL FLUIDOrdering Facility: [facility] Address: [address] [place] [address] Performed By: #### L [id number], IOG2655, 45366-0 ####[facility]ORATORYCLIA [id number] [place] [address] [place] MACRO%, CSF 9 % High <1 [facility] Comment on above: Order Comment: Speci men Type: CEREBROSPINAL FLUIDOrdering Facility: [facility] Address: [address] [place] [address] Performed By: #### L [id number], CYJ5998, 07540-0 ####[facility]ORATORYCLIA [id number] [place] [address] [place] MONO%, CSF 10 % Normal 10-50 [facility] Comment on above: Order Comment: Speci men Type: CEREBROSPINAL FLUIDOrdering Facility: [facility] Address: [address] [place] [address] Performed By: #### L [id number], KEQ1881, 54760-0 ####[facility]ORATORYCLIA [id number] [address] [place] OTHER CL%, CSF 4 % Normal [facility] Comment on above: Order Comment: Speci men Type: CEREBROSPINAL FLUIDOrdering Facility: [facility] Address: [address] [place] [address] Result Comment: Path review to follow. Performed By: #### L KV5695, JOD8127, 96009-5 ####[facility]ORATORYCLIA [id number] [address] [place] REAC LYMPH %, CSF 2 % Normal [facility] Comment on above: Order Comment: Speci men Type: CEREBROSPINAL FLUIDOrdering Facility: [facility] Address: [address] [place] [address] Performed By: #### L ZF1403, KHQ8247, 72765-7 ####[facility]ORATORYCLIA [id number] [address] [place] CSF PATHOLOGIST INTERP (LAB REFLEX ORDER-NO BILL)on 07-30-2021 CSF STAFF REVIEW Negative Normal [facility] Comment on above: Order Comment: Speci men Type: CEREBROSPINAL FLUIDOrdering Facility: [facility] Address: [address] [place] [address] Performed By: #### L IV1817, RTY2752, 19966-7 ####[facility]ORATORYCLIA [id number] [address] Pathologist name Reviewed by Eloise rebolledo MD Normal [facility] Comment on above: Order Comment: Speci men Type: CEREBROSPINAL FLUIDOrdering Facility: [facility] Address: [address] [place] [address] Performed By: #### L WG0381, CFZ9627, 33691-4 ####[facility]ORATORYCLIA [id number] [address] OF [place] CT BRAIN WO IVCONon 07-31-[address] BRAIN WO IVCON Normal [facility] Cell count panel (CSF)on Clarity (CSF) Clear Normal Clear [facility] Comment on above: Order Comment: Speci men Type: CEREBROSPINAL FLUIDOrdering Facility: [facility] Address: [address] [place] [address] Performed By: #### L [id number], LMP2928, 91476-3 ####[facility]ATORYCLIA [id number] [address] [place] Clarity (Unsp spec) Clear Normal Clear [facility] Comment on above: Order Comment: Speci men Type: CEREBROSPINAL FLUIDOrdering Facility: [facility] Address: [address] [place] [address] Performed By: #### L PA6364, LBD0584, 13000-5 ####[facility]ORATORYCLIA [id number] [address] Color (CSF) Colorless Normal Colorless [facility] Comment on above: Order Comment: Speci men Type: CEREBROSPINAL FLUIDOrdering Facility: [facility] Address: [address] [place] [address] Performed By: #### L [id number], LUV0610, 39614-9 ####[facility]ORATORYCLIA [id number] [address] Color (Spun CSF) Colorless Normal Colorless [facility] Comment on above: Order Comment: Speci men Type: CEREBROSPINAL FLUIDOrdering Facility: [facility] Address: [address] [place] [address] Performed By: #### L [id number], LXB8924, 25928-4 ####[facility]ORATORYCLIA [id number] [address] CSF TUBE NUMBER Sterile Container Normal [facility] Comment on above: Order Comment: Speci men Type: CEREBROSPINAL FLUIDOrdering Facility: [facility] Address: [address] [place] [address] Performed By: #### L [id number], DHN3090, 28275-6 ####[facility]ORATORYCLIA [id number] [address] RBC Manual cnt (CSF) [#/Vol] 9 cells/uL High 0-5 [facility] Comment on above: Order Comment: Speci men Type: CEREBROSPINAL FLUIDOrdering Facility: [facility] Address: [address] [place] [address] Performed By: #### L PS1987, MMX2955, 72263-9 ####[facility]ORATORYCLIA [id number] [address] WBC Manual cnt (CSF) [#/Vol] 8 cells/uL High 0-5 [facility] Comment on above: Order Comment: Speci men Type: CEREBROSPINAL FLUIDOrdering Facility: [facility] Address: [address] [place] [address] Performed By: #### L KT6574, OMO4996, 74995-8 ####[facility]ORATORYCLIA [id number] [address] Glucose CSF-ncon Glucose (CSF) [Mass/Vol] 65 mg/dL Normal 40-70 [facility] Comment on above: Order Comment: Speci men Type: CEREBROSPINAL FLUIDOrdering Facility: [facility] Address: [address] [place] [address] Result Comment: Lumb ar CSF glucose values of healthy patients are approximately 60% of the plasma values and must always be compared with a concurrently measured plasma value for adequate clinical interpretation.References: 1. Glucose HK (GLUC3) [package insert V 12.0 [place]]. [employer], [place], [place]. September 2015. 2. Michelle Moore, Loki, H. (2015). Chapter 7: Glucose and Lactate. Mairanela Alcocer al.(eds.), Cerebrospinal Fluid in Clinical Neurology. [place]: [employer]. Performed By: #### 2 342-4, 2880-3 ####[facility]ORATORYCLIA [id number] [address] [facility] Magnesium SerPl-[facility] 07-30 Magnesium [Mass/Vol] 2.5 mg/dL High 1.7-2.3 [facility] Comment on above: Order Comment: Speci men Type: BLOOD SPECIMENOrdering Facility: [facility] Address: [address] [place] [address] Performed By: #### 2 777-1, 47629-8, 68368-1 ####[facility]ORATORYCLIA [id number] [address] [place] NURSING PROGon 07-30-2021 NURSING PROG Normal [facility] Phosphate SerPl-mCncon 07-30 Phosphate [Mass/Vol] 2.4 mg/dL Low 2.7-4.8 [facility] Comment on above: Order Comment: Speci men Type: BLOOD SPECIMENOrdering Facility: [facility] Address: [address] [place] [address] Performed By: #### 2 777-1, 79642-6, 48221-0 ####[facility]ORATORYCLIA [id number] [place] [address] [place] Prot CSF-mCncon 07-30-2021 Protein (CSF) [Mass/Vol] 50 mg/dL High 15-45 [facility] Comment on above: Order Comment: Speci men Type: CEREBROSPINAL FLUIDOrdering Facility: [facility] Address: [address] [place] [address] Performed By: #### 2 342-4, 2880-3 ####[facility]CL[facility] [id number] [place] [address] [place] aPTT PPPon 07-30-2021 aPTT Coag (PPP) [Time] 64.1 s High 23.0-32.4 [facility] Comment on above: Order Comment: Speci men Type: BLOOD SPECIMENOrdering Facility: [facility] Address: [address] [place] [address] Performed By: #### 1 4979-9 ####[facility]ORATORYCLIA [id number] [address] [place] Bacteria CSF Culton 07-30-19 22 Bacteria identified Cx Nom (CSF) CULTURE, CSF: No growth 14 days GRAM STAIN: No cells or organisms seen Gram stain performed on cytospun specimen. Gram stain confirmed by microbiology Normal [facility] Comment on above: Performed By: #### 6 06-4 ####[facility]ORATORYCLIA [id number] [place] [address] [place] CASE MANAGEMon 07-29-2021 CASE MANAGEM Normal [facility] CBC W Auto Differential pane l (Bld)on 07-29-2021 Basophils (Bld) [#/Vol] 0.03 10*3/uL Normal <0.11 [facility] Comment on above: Order Comment: Speci men Type: BLOOD SPECIMENOrdering Facility: [facility] Address: [address] [address] Performed By: #### 5 7021-8 ####[facility]ORATORYCLIA [id number] [place] [address] [place] Basophils/100 WBC (Bld) 0.3 % Normal [facility] Comment on above: Order Comment: Speci men Type: BLOOD SPECIMENOrdering Facility: [facility] Address: [address] [place] [address] Performed By: #### 5 7021-8 ####[facility] LABORATORYCLIA [id number] [address] STATES OF [facility] Differential cell count method Nom (Bld) Auto Normal [facility] Comment on above: Order Comment: Speci men Type: BLOOD SPECIMENOrdering Facility: [facility] Address: [address] [place] [address] Performed By: #### 5 7021-8 ####[facility] LABORATORYCLIA [id number] [place] [address] [place] Eosinophils (Bld) [#/Vol] 0.40 10*3/uL Normal <0.46 [facility] Comment on above: Order Comment: Speci men Type: BLOOD SPECIMENOrdering Facility: [facility] Address: [address] [address] Performed By: #### 5 7021-8 ####[facility]ATORYCLIA [id number] [address] [place] Eosinophils/100 WBC (Bld) 3.9 % Normal [facility] Comment on above: Order Comment: Speci men Type: BLOOD SPECIMENOrdering Facility: [facility] Address: [address] [place] [address] Performed By: #### 5 7021-8 ####[facility]ORATORYCLIA [id number] [address] Erythrocyte distribution width (RBC) [Ratio] 17.1 % High 11.5-15.0 [facility] Comment on above: Order Comment: Speci men Type: BLOOD SPECIMENOrdering Facility: [facility] Address: [address] [place] [address] Performed By: #### 5 7021-8 ####[facility]ORATORYCLIA [id number] [address] OF [facility] Hematocrit (Bld) [Volume fraction] 32.0 % Low 39.0-51.0 [facility] Comment on above: Order Comment: Speci men Type: BLOOD SPECIMENOrdering Facility: [facility] Address: [address] [place] [address] Performed By: #### 5 7021-8 ####[facility]ORATORYCLIA [id number] [address] Hemoglobin (Bld) [Mass/Vol] 9.7 g/dL Low 13.0-17.0 [facility] Comment on above: Order Comment: Speci men Type: BLOOD SPECIMENOrdering Facility: [facility] Address: [address] [place] [address] Performed By: #### 5 7021-8 ####[facility]ORATORYCLIA [id number] [address] IMMATURE GRAN % 0.6 % Normal [facility] Comment on above: Order Comment: Speci men Type: BLOOD SPECIMENOrdering Facility: [facility] Address: [address] [place] [address] Performed By: #### 5 7021-8 ####[facility]ORATORYCLIA [id number] [address] IMMATURE GRAN ABS 0.06 k/uL Normal <0.10 [facility] Comment on above: Order Comment: Speci men Type: BLOOD SPECIMENOrdering Facility: [facility] Address: [address] [address] Performed By: #### 5 7021-8 ####[facility]ORATORYCLIA [id number] [address] [place] Lymphocytes (Bld) [#/Vol] 1.96 10*3/uL Normal 1.00-4.00 [facility] Comment on above: Order Comment: Speci men Type: BLOOD SPECIMENOrdering Facility: [facility] Address: [address] [place] [address] Performed By: #### 5 7021-8 ####[facility]ORATORYCLIA [id number] [address] Lymphocytes/100 WBC (Bld) 19.0 % Normal [facility] Comment on above: Order Comment: Speci men Type: BLOOD SPECIMENOrdering Facility: [facility] Address: [address] [place] [address] Performed By: #### 5 7021-8 ####[facility]ORATORYCLIA [id number] [address] STATES [place] [facility] MCH (RBC) [Entitic mass] 28.0 pg Normal 26.0-34.0 [facility] Comment on above: Order Comment: Speci men Type: BLOOD SPECIMENOrdering Facility: [facility] Address: [address] [place] [address] Performed By: #### 5 7021-8 ####[facility]ORATORYCLIA [id number] [address] [place] MCHC (RBC) [Mass/Vol] 30.3 g/dL Low 30.5-36.0 [facility] Comment on above: Order Comment: Speci men Type: BLOOD SPECIMENOrdering Facility: [facility] Address: [address] [place] [address] Performed By: #### 5 7021-8 ####[facility]ORATORYCLIA [id number] [address] [place] MCV (RBC) [Entitic vol] 92.5 fL Normal 80.0-100.0 [facility] Comment on above: Order Comment: Speci men Type: BLOOD SPECIMENOrdering Facility: [facility] Address: [address] [place] [address] Performed By: #### 5 7021-8 ####[facility] LABORATORYCLIA [id number] [place] [address] [place] Monocytes (Bld) [#/Vol] 0.53 10*3/uL Normal <0.87 [facility] Comment on above: Order Comment: Speci men Type: BLOOD SPECIMENOrdering Facility: [facility] Address: [address] [place] [address] Performed By: #### 5 7021-8 ####[facility]ORATORYCLIA [id number] [place] [address] [place] Monocytes/100 WBC (Bld) 5.2 % Normal [facility] Comment on above: Order Comment: Speci men Type: BLOOD SPECIMENOrdering Facility: [facility] Address: [address] [place] [address] Performed By: #### 5 7021-8 ####[facility]ORATORYCLIA [id number] [place] [address] [place] Neutrophils (Bld) [#/Vol] 7.31 10*3/uL Normal 1.45-7.50 [facility] Comment on above: Order Comment: Speci men Type: BLOOD SPECIMENOrdering Facility: [facility] Address: [address] [place] [address] Performed By: #### 5 7021-8 ####[facility] LABORATORYCLIA [id number] [place] [address] [place] Neutrophils/100 WBC (Bld) 71.0 % Normal [facility] Comment on above: Order Comment: Speci men Type: BLOOD SPECIMENOrdering Facility: [facility] Address: [address] [place] [address] Performed By: #### 5 7021-8 ####[facility]ATORYCLIA [id number] [address] [place] Nucleated RBC (Bld) [#/Vol] 10*3/uL Normal <0.01 [facility] Comment on above: Order Comment: Speci men Type: BLOOD SPECIMENOrdering Facility: [facility] Address: [address] [place] [address] Performed By: #### 5 7021-8 ####[facility]ORATORYCLIA [id number] [address] [place] Nucleated RBC/100 WBC (Bld) [Ratio] 0.0 /100 WBC Normal [facility] Comment on above: Order Comment: Speci men Type: BLOOD SPECIMENOrdering Facility: [facility] Address: [address] [place] [address] Performed By: #### 5 7021-8 ####[facility]ORATORYCLIA [id number] [address] [place] Platelet mean volume (Bld) [Entitic vol] 11.2 fL Normal 9.0-12.7 [facility] Comment on above: Order Comment: Speci men Type: BLOOD SPECIMENOrdering Facility: [facility] Address: [address] [place] [address] Performed By: #### 5 7021-8 ####[facility]ORATORYCLIA [id number] [address] [place] Platelets (Bld) [#/Vol] 276 10*3/uL Normal 150-400 [facility] Comment on above: Order Comment: Speci men Type: BLOOD SPECIMENOrdering Facility: [facility] Address: [address] [place] [address] Performed By: #### 5 7021-8 ####[facility]ORATORYCLIA [id number] [address] [place] RBC (Bld) [#/Vol] 3.46 10*6/uL Low 4.20-6.00 [facility] Comment on above: Order Comment: Speci men Type: BLOOD SPECIMENOrdering Facility: [facility] Address: [facility] [place] [address] Performed By: #### 5 7021-8 ####[facility]ORATORYCLIA [id number] [place] [address] [place] [facility] WBC (Bld) [#/Vol] 10.29 10*3/uL Normal 3.70-11.00 [facility] Comment on above: Order Comment: Speci men Type: BLOOD SPECIMENOrdering Facility: [facility] Address: [address] [place] [address] Performed By: #### 5 7021-8 ####[facility]ORATORYCLIA [id number] [address] OF [facility] NURSING PROGon 07-29-2021 NURSING PROG Normal [facility] THERAPY NTon 07-29-2021 THERAPY NT Normal [facility] aPTT PPPon 07-29-2021 aPTT Coag (PPP) [Time] 59.2 s High 23.0-32.4 [facility] Comment on above: Order Comment: Speci men Type: BLOOD SPECIMENOrdering Facility: [facility] Address: [address] [place] [address] Performed By: #### 1 4979-9 ####[facility]ORATORYCLIA [id number] [address] [place] ALLIED HEALTHon 07-28-2021 ALLIED HEALTH Normal [facility] Basic metabolic 2000 panelon 07-28-2021 Anion gap [Moles/Vol] 7 mmol/L Low 9-18 [facility] Comment on above: Order Comment: Speci men Type: BLOOD SPECIMENOrdering Facility: [facility] Address: [address] [place] [address] Performed By: #### 1 4338-8, 05542-8, 2777-1, 28757-2 ####[facility]ORATORYCLIA [id number] [address] [place] Calcium [Mass/Vol] 9.0 mg/dL Normal 8.5-10.2 [facility] Comment on above: Order Comment: Speci men Type: BLOOD SPECIMENOrdering Facility: [facility] Address: [address] [place] [address] Performed By: #### 1 4338-8, 23554-5, 277-, 85356-2 ####[facility]ORATORYCLIA [id number] [place] [address] [place] Chloride [Moles/Vol] 94 mmol/L Low 97-105 [facility] Comment on above: Order Comment: Speci men Type: BLOOD SPECIMENOrdering Facility: [facility] Address: [address] [place] [address] Performed By: #### 1 4338-8, 13493-8, 27711-04, 11354-3 ####[facility]CLIA [id number] [place] [address] [place] CO2 [Moles/Vol] 31 mmol/L High 22-30 [facility] Comment on above: Order Comment: Speci men Type: BLOOD SPECIMENOrdering Facility: [facility] Address: [address] [place] [address] Performed By: #### 1 4338-8, , 2776-05, 27591-2 ####[facility]ORATORYCLIA [id number] [address] [place] Creatinine [Mass/Vol] 0.75 mg/dL Normal 0.73-1.22 [facility] Comment on above: Order Comment: Speci men Type: BLOOD SPECIMENOrdering Facility: [facility] Address: [address] [place] [address] Performed By: #### 1 4338-8, 09179-9, 2776-05, 34254-2 ####[facility]ORATORYCLIA [id number] [address] STATES [place] [facility] ESTIMATED GLOMERULAR FILTRATION RATE 98 mL/min/1.73m??? Normal >=60 [facility] Comment on above: Order Comment: Speci men Type: BLOOD SPECIMENOrdering Facility: [facility] Address: [address] [place] [address] Result Comment: Luzmaria mated Glomerular Filtration Rate [...] actual GFR. Performed By: #### 1 4338-8, 85741-1, 2777-1, 96234-5 ####[facility]ITALCLIA [id number] [address] [id number] [place] Glucose [Mass/Vol] 122 mg/dL High 74-99 [facility] Comment on above: Order Comment: Shira feldman Type: BLOOD SPECIMENOrdering Facility: [facility] Address: [address] [place], [place] [address] Result Comment: The [employer] [place] [employer] (ADA) provides guidance for cutoff [...] Standards of Medical Care in Diabetes 2016, [employer] [place] [employer]. Diabetes Care. 2016.39(Suppl 1). Performed By: #### 1 4338-8, 83051-8, 2777-1, 17692-5 ####[facility]ORATORYCLIA [id number] [address] [id number] [place] Potassium [Moles/Vol] 4.0 mmol/L Normal 3.7-5.1 [facility] Comment on above: Order Comment: Shira feldman Type: BLOOD SPECIMENOrdering Facility: [facility] Address: [address] [place] [address] Performed By: #### 1 4338-8, 74708-1, 2777-1, 80831-8 ####[facility]ORATORYCLIA [id number] [address] STATES [facility] Sodium [Moles/Vol] 132 mmol/L Low 136-144 [facility] Comment on above: Order Comment: Speci men Type: BLOOD SPECIMENOrdering Facility: [facility] Address: [address] [place] [address] Performed By: #### 1 4338-8, 11869-3, 2777-1, 08822-5 ####[facility]ORATORYCLIA [id number] [address] [place] Urea nitrogen [Mass/Vol] 34 mg/dL High 01-28 [facility] Comment on above: Order Comment: Speci men Type: BLOOD SPECIMENOrdering Facility: [facility] Address: [address] [place] [address] Performed By: #### 1 4338-8, 04455-7, 2777-1, 44117-2 ####[facility]ORATORYCLIA [id number] [address] CBC W Auto Differential pane l (Bld)on 07-28-2021 Basophils (Bld) [#/Vol] 0.04 10*3/uL Normal <0.11 [facility] Comment on above: Order Comment: Speci men Type: BLOOD SPECIMENOrdering Facility: [facility] Address: [address] [place] [address] Performed By: #### 5 7021-8 ####[facility]ORATORYCLIA [id number] [address] STATES [facility] Basophils/100 WBC (Bld) 0.5 % Normal [facility] Comment on above: Order Comment: Speci men Type: BLOOD SPECIMENOrdering Facility: [facility] Address: [address] [place] [address] Performed By: #### 5 7021-8 ####[facility]ORATORYCLIA [id number] [address] Differential cell count method Nom (Bld) Auto Normal [facility] Comment on above: Order Comment: Speci men Type: BLOOD SPECIMENOrdering Facility: [facility] Address: [address] [place] [address] Performed By: #### 5 7021-8 ####[facility]ORATORYCLIA [id number] [address] [place] Eosinophils (Bld) [#/Vol] 0.30 10*3/uL Normal <0.46 [facility] Comment on above: Order Comment: Speci men Type: BLOOD SPECIMENOrdering Facility: [facility] Address: [address] [place] [address] Performed By: #### 5 7021-8 ####[facility]ORATORYCLIA [id number] [address] Eosinophils/100 WBC (Bld) 3.4 % Normal [facility] Comment on above: Order Comment: Speci men Type: BLOOD SPECIMENOrdering Facility: [facility] Address: [address] [place] [address] Performed By: #### 5 7021-8 ####[facility]ORATORYCLIA [id number] [address] Erythrocyte distribution width (RBC) [Ratio] 16.9 % High 11.5-15.0 [facility] Comment on above: Order Comment: Speci men Type: BLOOD SPECIMENOrdering Facility: [facility] Address: [address] [place] [address] Performed By: #### 5 7021-8 ####[facility]ORATORYCLIA [id number] [address] Hematocrit (Bld) [Volume fraction] 30.3 % Low 39.0-51.0 [facility] Comment on above: Order Comment: Speci men Type: BLOOD SPECIMENOrdering Facility: [facility] Address: [address] [place] [address] Performed By: #### 5 7021-8 ####[facility]ORATORYCLIA [id number] [address] STATES [place] [facility] Hemoglobin (Bld) [Mass/Vol] 9.2 g/dL Low 13.0-17.0 [facility] Comment on above: Order Comment: Speci men Type: BLOOD SPECIMENOrdering Facility: [facility] Address: [address] [place] [address] Performed By: #### 5 7021-8 ####[facility]ORATORYCLIA [id number] [address] IMMATURE GRAN % 0.6 % Normal [facility] Comment on above: Order Comment: Speci men Type: BLOOD SPECIMENOrdering Facility: [facility] Address: [address] [place] [address] Performed By: #### 5 7021-8 ####[facility]ORATORYCLIA [id number] [address] IMMATURE GRAN ABS 0.05 k/uL Normal <0.10 [facility] Comment on above: Order Comment: Speci men Type: BLOOD SPECIMENOrdering Facility: [facility] Address: [address] [place] [address] Performed By: #### 5 7021-8 ####[facility]ORATORYCLIA [id number] [address] [place] Lymphocytes (Bld) [#/Vol] 1.68 10*3/uL Normal 1.00-4.00 [facility] Comment on above: Order Comment: Speci men Type: BLOOD SPECIMENOrdering Facility: [facility] Address: [address] [place] [address] Performed By: #### 5 7021-8 ####[facility]ORATORYCLIA [id number] [address] Lymphocytes/100 WBC (Bld) 19.2 % Normal [facility] Comment on above: Order Comment: Speci men Type: BLOOD SPECIMENOrdering Facility: [facility] Address: [address] [place] [address] Performed By: #### 5 7021-8 ####[facility]ORATORYCLIA [id number] [address] MCH (RBC) [Entitic mass] 28.4 pg Normal 26.0-34.0 [facility] Comment on above: Order Comment: Speci men Type: BLOOD SPECIMENOrdering Facility: [facility] Address: [address] [place] [address] Performed By: #### 5 7021-8 ####[facility]ORATORYCLIA [id number] [address] MCHC (RBC) [Mass/Vol] 30.4 g/dL Low 30.5-36.0 [facility] Comment on above: Order Comment: Speci men Type: BLOOD SPECIMENOrdering Facility: [facility] Address: [address] [place] [address] Performed By: #### 5 7021-8 ####[facility]ORATORYCLIA [id number] [address] MCV (RBC) [Entitic vol] 93.5 fL Normal 80.0-100.0 [facility] Comment on above: Order Comment: Speci men Type: BLOOD SPECIMENOrdering Facility: [facility] Address: [address] [place] [address] Performed By: #### 5 7021-8 ####[facility]ORATORYCLIA [id number] [address] Monocytes (Bld) [#/Vol] 0.58 10*3/uL Normal <0.87 [facility] Comment on above: Order Comment: Speci men Type: BLOOD SPECIMENOrdering Facility: [facility] Address: [address] [place] [address] Performed By: #### 5 7021-8 ####[facility]ORATORYCLIA [id number] [address] Monocytes/100 WBC (Bld) 6.6 % Normal [facility] Comment on above: Order Comment: Speci men Type: BLOOD SPECIMENOrdering Facility: [facility] Address: [address] [place] [address] Performed By: #### 5 7021-8 ####[facility]ORATORYCLIA [id number] [place] [address] [place] Neutrophils (Bld) [#/Vol] 6.11 10*3/uL Normal 1.45-7.50 [facility] Comment on above: Order Comment: Speci men Type: BLOOD SPECIMENOrdering Facility: [facility] Address: [address] [place] [address] Performed By: #### 5 7021-8 ####[facility]ORATORYCLIA [id number] [address] [place] Neutrophils/100 WBC (Bld) 69.7 % Normal [facility] Comment on above: Order Comment: Speci men Type: BLOOD SPECIMENOrdering Facility: [facility] Address: [address] [place] [address] Performed By: #### 5 7021-8 ####[facility]ORATORYCLIA [id number] [address] [place] Nucleated RBC (Bld) [#/Vol] 10*3/uL Normal <0.01 [facility] Comment on above: Order Comment: Speci men Type: BLOOD SPECIMENOrdering Facility: [facility] Address: [address] [place] [address] Performed By: #### 5 7021-8 ####[facility] LABORATORYCLIA [id number] [address] [place] Nucleated RBC/100 WBC (Bld) [Ratio] 0.0 /100 WBC Normal [facility] Comment on above: Order Comment: Speci men Type: BLOOD SPECIMENOrdering Facility: [facility] Address: [address] [place] [address] Performed By: #### 5 7021-8 ####[facility]ORATORYCLIA [id number] [address] [place] Platelet mean volume (Bld) [Entitic vol] 11.3 fL Normal 9.0-12.7 [facility] Comment on above: Order Comment: Speci men Type: BLOOD SPECIMENOrdering Facility: [facility] Address: [address] [place] [address] Performed By: #### 5 7021-8 ####[facility]ORATORYCLIA [id number] [place] [address] [place] Platelets (Bld) [#/Vol] 238 10*3/uL Normal 150-400 [facility] Comment on above: Order Comment: Speci men Type: BLOOD SPECIMENOrdering Facility: [facility] Address: [address] [place] [address] Performed By: #### 5 7021-8 ####[facility]ORATORYCLIA [id number] [place] [address] [place] RBC (Bld) [#/Vol] 3.24 10*6/uL Low 4.20-6.00 [facility] Comment on above: Order Comment: Speci men Type: BLOOD SPECIMENOrdering Facility: [facility] Address: [address] [place] [address] Performed By: #### 5 7021-8 ####[facility]ORATORYCLIA [id number] [place] [address] [place] WBC (Bld) [#/Vol] 8.76 10*3/uL Normal 3.70-11.00 [facility] Comment on above: Order Comment: Speci men Type: BLOOD SPECIMENOrdering Facility: [facility] Address: [address] [place] [address] Performed By: #### 5 7021-8 ####[facility]ORATORYCLIA [id number] [address] [place] MRI BRAIN WO/W IVCONon 07-28 MRI BRAIN WO/W IVCON Normal [facility] Magnesium SerPl-mCncon 07-28 Magnesium [Mass/Vol] 2.5 mg/dL High 1.7-2.3 [facility] Comment on above: Order Comment: Speci men Type: BLOOD SPECIMENOrdering Facility: [facility] Address: [address] [place] [address] Performed By: #### 1 4338-8, 55208-7, 2777-1, 37244-5 ####[facility]ORATORYCLIA [id number] [address] STATES OF [facility] NURSING PROGon 07-28-2021 NURSING PROG Normal [facility] NURSING PROG Normal [facility] Phosphate SerPl-mCncon 07-28 Phosphate [Mass/Vol] 2.8 mg/dL Normal 2.7-4.8 [facility] Comment on above: Order Comment: Speci men Type: BLOOD SPECIMENOrdering Facility: [facility] Address: [address] [place] [address] Performed By: #### 1 4338-8, 92533-1, 2777-1, 39748-3 ####[facility] LABORATORYCLIA [id number] [address] [place] Prealbumin [Mass/Vol]on 07-06 Prealbumin Nephelometry [Mass/Vol] 25 mg/dL Normal 17-36 [facility] Comment on above: Order Comment: Speci men Type: BLOOD SPECIMENOrdering Facility: [facility] [facility] Address: [address] [place] [address] Performed By: #### 1 4338-8, 20173-7, 2777-1, 64783-4 ####[facility] LABORATORYCLIA [id number] [address] [place] aPTT PPPon 07-28-2021 aPTT Coag (PPP) [Time] 53.0 s High 23.0-32.4 [facility] Comment on above: Order Comment: Speci men Type: BLOOD SPECIMENOrdering Facility: [facility] Address: [address] [address] Performed By: #### 1 4979-9 ####[facility] LABORATORYCLIA [id number] [address] [place] aPTT Coag (PPP) [Time] 57.2 s High 23.0-32.4 [facility] Comment on above: Order Comment: Speci men Type: BLOOD SPECIMENOrdering Facility: [facility] Address: [address] [place] [address] Performed By: #### 1 4979-9 ####[facility] LABORATORYCLIA [id number] [address] [place] Bacteria CSF Culton 07-28-19 22 Bacteria identified Cx Nom (CSF) CULTURE, CSF: No growth 14 days GRAM STAIN: No organisms seen Rare Polymorphonuclear leukocytes Rare Red Blood Cells Gram stain performed on cytospun specimen. Normal [facility] Comment on above: Performed By: #### 6 06-4 ####[facility] LABORATORYCLIA [id number] [address] [place] Bacteria Spec Resp Culton Bacteria identified Respiratory culture Nom (Unsp spec) CULTURE, RESPIRATORY: Rare Normal respiratory chris present GRAM STAIN: No organisms seen Rare Polymorphonuclear leukocytes Rare Epithelial cells Normal [facility] Comment on above: Performed By: #### 3 2355-0 ####[facility]ORATORYCLIA [id number] [address] [place] CASE MANAGEMon 07-27-2021 CASE MANAGEM Normal [facility] CBC W Auto Differential pane l (Bld)on 07-27-2021 Basophils (Bld) [#/Vol] 0.04 10*3/uL Normal <0.11 [facility] Comment on above: Order Comment: Speci men Type: BLOOD SPECIMENOrdering Facility: [facility] Address: [address] [id number] Performed By: #### 5 7021-8 ####[facility] LABORATORYCLIA [id number] [address] [place] Basophils/100 WBC (Bld) 0.4 % Normal [facility] Comment on above: Order Comment: Speci men Type: BLOOD SPECIMENOrdering Facility: [facility] Address: [address] [place] [address] Performed By: #### 5 7021-8 ####[facility] LABORATORYCLIA [id number] [address] Differential cell count method Nom (Bld) Auto Normal [facility] Comment on above: Order Comment: Speci men Type: BLOOD SPECIMENOrdering Facility: [facility] Address: [address] [place] [address] Performed By: #### 5 7021-8 ####[facility]ORATORYCLIA [id number] [address] [place] Eosinophils (Bld) [#/Vol] 0.50 10*3/uL High <0.46 [facility] Comment on above: Order Comment: Speci men Type: BLOOD SPECIMENOrdering Facility: [facility] Address: [address] [place] [address] Performed By: #### 5 7021-8 ####[facility]ORATORYCLIA [id number] [address] Eosinophils/100 WBC (Bld) 5.2 % Normal [facility] Comment on above: Order Comment: Speci men Type: BLOOD SPECIMENOrdering Facility: [facility] Address: [address] [place] [address] Performed By: #### 5 7021-8 ####[facility]ORATORYCLIA [id number] [address] [place] Erythrocyte distribution width (RBC) [Ratio] 16.8 % High 11.5-15.0 [facility] Comment on above: Order Comment: Speci men Type: BLOOD SPECIMENOrdering Facility: [facility] Address: [address] [place] [address] Performed By: #### 5 7021-8 ####[facility]ORATORYCLIA [id number] [address] OF [facility] Hematocrit (Bld) [Volume fraction] 29.8 % Low 39.0-51.0 [facility] Comment on above: Order Comment: Speci men Type: BLOOD SPECIMENOrdering Facility: [facility] Address: [address] [place] [address] Performed By: #### 5 7021-8 ####[facility]ORATORYCLIA [id number] [address] Hemoglobin (Bld) [Mass/Vol] 9.0 g/dL Low 13.0-17.0 [facility] Comment on above: Order Comment: Speci men Type: BLOOD SPECIMENOrdering Facility: [facility] Address: [address] [place] [address] Performed By: #### 5 7021-8 ####[facility]ORATORYCLIA [id number] [address] IMMATURE GRAN % 0.6 % Normal [facility] Comment on above: Order Comment: Speci men Type: BLOOD SPECIMENOrdering Facility: [facility] Address: [address] [place] [address] Performed By: #### 5 7021-8 ####[facility]ORATORYCLIA [id number] [address] IMMATURE GRAN ABS 0.06 k/uL Normal <0.10 [facility] Comment on above: Order Comment: Speci men Type: BLOOD SPECIMENOrdering Facility: [facility] Address: [address] [place] [address] Performed By: #### 5 7021-8 ####[facility]ORATORYCLIA [id number] [address] Lymphocytes (Bld) [#/Vol] 1.73 10*3/uL Normal 1.00-4.00 [facility] Comment on above: Order Comment: Speci men Type: BLOOD SPECIMENOrdering Facility: [facility] Address: [address] [place] [address] Performed By: #### 5 7021-8 ####[facility]ORATORYCLIA [id number] [address] Lymphocytes/100 WBC (Bld) 17.9 % Normal [facility] Comment on above: Order Comment: Speci men Type: BLOOD SPECIMENOrdering Facility: [facility] Address: [address] [place] [address] Performed By: #### 5 7021-8 ####[facility]ORATORYCLIA [id number] [address] MCH (RBC) [Entitic mass] 28.1 pg Normal 26.0-34.0 [facility] Comment on above: Order Comment: Speci men Type: BLOOD SPECIMENOrdering Facility: [facility] Address: [address] [place] [address] Performed By: #### 5 7021-8 ####[facility]ORATORYCLIA [id number] [address] MCHC (RBC) [Mass/Vol] 30.2 g/dL Low 30.5-36.0 [facility] Comment on above: Order Comment: Speci men Type: BLOOD SPECIMENOrdering Facility: [facility] Address: [address] [place] [address] Performed By: #### 5 7021-8 ####[facility]ORATORYCLIA [id number] [address] MCV (RBC) [Entitic vol] 93.1 fL Normal 80.0-100.0 [facility] Comment on above: Order Comment: Speci men Type: BLOOD SPECIMENOrdering Facility: [facility] Address: [address] [place] [address] Performed By: #### 5 7021-8 ####[facility]ORATORYCLIA [id number] [address] Monocytes (Bld) [#/Vol] 0.59 10*3/uL Normal <0.87 [facility] Comment on above: Order Comment: Speci men Type: BLOOD SPECIMENOrdering Facility: [facility] Address: [address] [place] [address] Performed By: #### 5 7021-8 ####[facility] LABORATORYCLIA [id number] [address] STATES [facility] Monocytes/100 WBC (Bld) 6.1 % Normal [facility] Comment on above: Order Comment: Speci men Type: BLOOD SPECIMENOrdering Facility: [facility] Address: [address] [place] [address] Performed By: #### 5 7021-8 ####[facility]ORATORYCLIA [id number] [address] [place] Neutrophils (Bld) [#/Vol] 6.75 10*3/uL Normal 1.45-7.50 [facility] Comment on above: Order Comment: Speci men Type: BLOOD SPECIMENOrdering Facility: [facility] Address: [address] [place] [address] Performed By: #### 5 7021-8 ####[facility]ORATORYCLIA [id number] [address] Neutrophils/100 WBC (Bld) 69.8 % Normal [facility] Comment on above: Order Comment: Speci men Type: BLOOD SPECIMENOrdering Facility: [facility] Address: [address] [place] [address] Performed By: #### 5 7021-8 ####[facility]ORATORYCLIA [id number] [address] [place] Nucleated RBC (Bld) [#/Vol] 10*3/uL Normal <0.01 [facility] Comment on above: Order Comment: Speci men Type: BLOOD SPECIMENOrdering Facility: [facility] Address: [address] [place] [address] Performed By: #### 5 7021-8 ####[facility]ORATORYCLIA [id number] [address] [place] Nucleated RBC/100 WBC (Bld) [Ratio] 0.0 /100 WBC Normal [facility] Comment on above: Order Comment: Speci men Type: BLOOD SPECIMENOrdering Facility: [facility] Address: [address] [place] [address] Performed By: #### 5 7021-8 ####[facility]ORATORYCLIA [id number] [address] [place] Platelet mean volume (Bld) [Entitic vol] 11.3 fL Normal 9.0-12.7 [facility] Comment on above: Order Comment: Speci men Type: BLOOD SPECIMENOrdering Facility: [facility] Address: [address] [place] [address] Performed By: #### 5 7021-8 ####[facility]ORATORYCLIA [id number] [address] [place] Platelets (Bld) [#/Vol] 227 10*3/uL Normal 150-400 [facility] Comment on above: Order Comment: Speci men Type: BLOOD SPECIMENOrdering Facility: [facility] Address: [address] [place] [address] Performed By: #### 5 7021-8 ####[facility]ORATORYCLIA [id number] [address] [place] RBC (Bld) [#/Vol] 3.20 10*6/uL Low 4.20-6.00 [facility] Comment on above: Order Comment: Speci men Type: BLOOD SPECIMENOrdering Facility: [facility] Address: [address] [place] [address] Performed By: #### 5 7021-8 ####[facility]ORATORYCLIA [id number] [address] [place] WBC (Bld) [#/Vol] 9.67 10*3/uL Normal 3.70-11.00 [facility] Comment on above: Order Comment: Speci men Type: BLOOD SPECIMENOrdering Facility: [facility] Address: [address] [place] [address] Performed By: #### 5 7021-8 ####[facility]ORATORYCLIA [id number] [address] OF [facility] CONSULT PROGon 07-27-2021 CONSULT PROG Normal [facility] CSF MANUAL DIFFon 07-27-2021 DIF TTL, CSF 100 cells counted Normal [facility] Comment on above: Order Comment: Speci men Type: CEREBROSPINAL FLUIDOrdering Facility: [facility] Address: [address] [place] [address] Performed By: #### L SO2212, 33420-8, [id number] ####[facility]ORATORYCLIA [id number] [address] [place] LYMPH%, CSF 75 % Normal 50-90 [facility] Comment on above: Order Comment: Speci men Type: CEREBROSPINAL FLUIDOrdering Facility: [facility] Address: [address] [place] [address] Performed By: #### L FX2994, 55830-9, [id number] ####[facility]ORATORYCLIA [id number] [place] [address] [place] MONO%, CSF 22 % Normal 10-50 [facility] Comment on above: Order Comment: Speci men Type: CEREBROSPINAL FLUIDOrdering Facility: [facility] Address: [address] [place] [address] Performed By: #### L XJ1082, 09628-0, [id number] ####[facility]ORATORYCLIA [id number] [place] [address] [place] NEUT%, CSF 2 % Normal 0-3 [facility] Comment on above: Order Comment: Speci men Type: CEREBROSPINAL FLUIDOrdering Facility: [facility] Address: [address] [place] [address] Performed By: #### L NW9706, 62019-9, [id number] ####[facility]ORATORYCLIA [id number] [address] OTHER CL%, CSF 1 % Normal [facility] Comment on above: Order Comment: Speci men Type: CEREBROSPINAL FLUIDOrdering Facility: [facility] Address: [address] [place] [address] Result Comment: Path ologist review of microscopy results to follow Performed By: #### L NE4365, 48085-0, [id number] ####[facility]ORATORYCLIA [id number] [address] [place] CSF PATHOLOGIST INTERP (LAB REFLEX ORDER-NO BILL)on 07-27-2021 CSF STAFF REVIEW Negative Normal [facility] Comment on above: Order Comment: Speci men Type: CEREBROSPINAL FLUIDOrdering Facility: [facility] Address: [address] [place] [address] Performed By: #### L YZ3174, 70166-5, [id number] ####[facility]ORATORYCLIA [id number] [address] Pathologist name Reviewed by Aamdor Stevens MD [facility] Comment on above: Order Comment: Speci men Type: CEREBROSPINAL FLUIDOrdering Facility: [facility] Address: [address] [place] [address] Performed By: #### L PJ1034, 92030-9, [id number] ####[facility]ORATORYCLIA [id number] [address] Cell count panel (CSF)on Clarity (CSF) Clear Normal Clear [facility] Comment on above: Order Comment: Speci men Type: CEREBROSPINAL FLUIDOrdering Facility: [facility] Address: [address] [place] [address] Performed By: #### L CX5515, 81697-1, [id number] ####[facility]ORATORYCLIA [id number] [address] Clarity (Unsp spec) Not Indicated Normal Clear [facility] Comment on above: Order Comment: Speci men Type: CEREBROSPINAL FLUIDOrdering Facility: [facility] Address: [address] [address] Performed By: #### L BX2776, 32200-7, THW4130 ####[facility]ORATORYCLIA [id number] [address] Color (CSF) Colorless Normal Colorless [facility] Comment on above: Order Comment: Speci men Type: CEREBROSPINAL FLUIDOrdering Facility: [facility] Address: [address] [place] [address] Performed By: #### L HT2619, 77511-6, [id number] ####[facility]ORATORYCLIA [id number] [address] Color (Spun CSF) Not Indicated Normal Colorless [facility] Comment on above: Order Comment: Speci men Type: CEREBROSPINAL FLUIDOrdering Facility: [facility] Address: [address] [place] [address] Performed By: #### L PY6887, 82479-6, JCE5977 ####[facility]ORATORYCLIA [id number] [address] CSF TUBE NUMBER Sterile Container Normal [facility] Comment on above: Order Comment: Speci men Type: CEREBROSPINAL FLUIDOrdering Facility: [facility] Address: [address] [place] [address] Performed By: #### L CS7760, 66419-2, [id number] ####[facility]ORATORYCLIA [id number] [address] RBC Manual cnt (CSF) [#/Vol] 39 cells/uL High 0-5 [facility] Comment on above: Order Comment: Speci men Type: CEREBROSPINAL FLUIDOrdering Facility: [facility] Address: [address] [place] [address] Performed By: #### L VJ0897, 46435-3, [id number] ####[facility]ORATORYCLIA [id number] [address] WBC Manual cnt (CSF) [#/Vol] 14 cells/uL High 0-5 [facility] Comment on above: Order Comment: Speci men Type: CEREBROSPINAL FLUIDOrdering Facility: [facility] Address: [address] [place] [address] Performed By: #### L YD9661, 44888-3, [id number] ####[facility] LABORATORYCLIA [id number] [place] [address] [place] Glucose CSF-ncon 2 Glucose (CSF) [Mass/Vol] 64 mg/dL Normal 40-70 [facility] Comment on above: Order Comment: Speci men Type: CEREBROSPINAL FLUIDOrdering Facility: [facility] Address: [address] [place] [address] Result Comment: Lumb ar CSF glucose values of healthy patients are approximately 60% of the plasma values and must always be compared with a concurrently measured plasma value for adequate clinical interpretation.References: 1. Glucose HK (GLUC3) [package insert V 12.0 [place]]. [employer], [place], [place]. September 2015. 2. Michelle Moore, Loki HGarfield (2015). Chapter 7: Glucose and Lactate. F. Irina rose al.(eds.), Cerebrospinal Fluid in Clinical Neurology. [place]: [employer]. Performed By: #### 2 342-4, 2880-3 ####[facility]ORATORYCLIA [id number] [place] [address] [place] NUTRITIONon 07-27-2021 NUTRITION Normal [facility] Prot CSF-ncon 07-27-2021 Protein (CSF) [Mass/Vol] 58 mg/dL High 15-45 [facility] Comment on above: Order Comment: Speci men Type: CEREBROSPINAL FLUIDOrdering Facility: [facility] Address: [address] [place] [address] Performed By: #### 2 342-4, 2880-3 ####[facility]ORATORYCLIA [id number] [place] [address] [place] aPTT PPPon 07-27-2021 aPTT Coag (PPP) [Time] 68.4 s High 23.0-32.4 [facility] Comment on above: Order Comment: Speci men Type: BLOOD SPECIMENOrdering Facility: [facility] Address: [address] [place] [address] Performed By: #### 1 4979-9 ####[facility]ORATORYCLIA [id number] [address] aPTT Coag (PPP) [Time] 51.3 s High 23.0-32.4 [facility] Comment on above: Order Comment: Speci men Type: BLOOD SPECIMENOrdering Facility: [facility] Address: [address] [place] [address] Performed By: #### 1 4979-9 ####[facility]ORATORYCLIA [id number] [address] ALLIED HEALTHon 07-26-2021 ALLIED HEALTH HNO ID: [id number] Author: Stephanie Maldonado, packaging specialist Service: Radiology Author Type: Sand Cutter Type: Allied Health Filed: 07/26/2021 4:10 PM Note Text: Spoke with nurse. Pt getting new EVD today. Try tomorrow. Normal [facility] Bacteria CSF Culton 07-27-19 Bacteria identified Cx Nom (CSF) Abnormal [facility] Comment on above: Performed By: #### 6 06-4 ####[facility]ORATORYCLIA [id number] [address] STATES OF [facility] Basic metabolic 2000 panelon 07-26-2021 Anion gap [Moles/Vol] 6 mmol/L Low 9-18 [facility] Comment on above: Order Comment: Speci men Type: BLOOD SPECIMENOrdering Facility: [facility] Address: [address] [place] [address] Performed By: #### 2 4321-2 ####[facility]ORATORYCLIA [id number] [address] [place] Calcium [Mass/Vol] 9.2 mg/dL Normal 8.5-10.2 [facility] Comment on above: Order Comment: Speci men Type: BLOOD SPECIMENOrdering Facility: [facility] Address: [address] [address] Performed By: #### 2 4321-2 ####[facility]ORATORYCLIA [id number] [address] [place] Chloride [Moles/Vol] 99 mmol/L Normal 97-105 [facility] Comment on above: Order Comment: Speci men Type: BLOOD SPECIMENOrdering Facility: [facility] Address: [address] [place] [address] Performed By: #### 2 4321-2 ####[facility]ORATORYCLIA [id number] [address] [place] CO2 [Moles/Vol] 32 mmol/L High 22-30 [facility] Comment on above: Order Comment: Speci men Type: BLOOD SPECIMENOrdering Facility: [facility] Address: [address] [place] [address] Performed By: #### 2 4321-2 ####[facility]ORATORYCLIA [id number] [address] [place] Creatinine [Mass/Vol] 0.74 mg/dL Normal 0.73-1.22 [facility] Comment on above: Order Comment: Speci men Type: BLOOD SPECIMENOrdering Facility: [facility] Address: [address] [place] [address] Performed By: #### 2 4321-2 ####[facility]ORATORYCLIA [id number] [address] ESTIMATED GLOMERULAR FILTRATION RATE 98 mL/min/1.73m??? Normal >=60 [facility] Comment on above: Order Comment: Speci men Type: BLOOD SPECIMENOrdering Facility: [facility] Address: [address] [place] [address] Result Comment: Luzmaria mated Glomerular Filtration Rate [...] #### 2 4321-2 ####[facility]ORATORYCLIA [id number] [place] [address] [place] Glucose [Mass/Vol] 126 mg/dL High 74-99 [facility] Comment on above: Order Comment: Shira feldman Type: BLOOD SPECIMENOrdering Facility: [facility] Address: [address] [place] [address] Result Comment: The [place] [employer] (ADA) provides guidance for cutoff [...] Standards of Medical Care in Diabetes 2016, [place] [employer]. Diabetes Care. 2016.39(Suppl 1). Performed By: #### 2 4321-2 ####[facility] LABORATORYCLIA [id number] [place] [address] [place] Potassium [Moles/Vol] 4.2 mmol/L Normal 3.7-5.1 [facility] Comment on above: Order Comment: Shira feldman Type: BLOOD SPECIMENOrdering Facility: [facility] Address: [address] [address] Performed By: #### 2 4321-2 ####[facility]ORATORYCLIA [id number] [place] [address] [place] Sodium [Moles/Vol] 137 mmol/L Normal 136-144 [facility] Comment on above: Order Comment: Shira feldman Type: BLOOD SPECIMENOrdering Facility: [facility] Address: [address] [address] Performed By: #### 2 4321-2 ####[facility]ORATORYCLIA [id number] [address] STATES [facility] Urea nitrogen [Mass/Vol] 36 mg/dL High 9-24 [facility] Comment on above: Order Comment: Speci men Type: BLOOD SPECIMENOrdering Facility: [facility] Address: [address] [place] [address] Performed By: #### 2 4321-2 ####[facility]ORATORYCLIA [id number] [address] [place] CBC W Auto Differential pane l (Bld)on 07-26-2021 Basophils (Bld) [#/Vol] 0.04 10*3/uL Normal <0.11 [facility] Comment on above: Order Comment: Speci men Type: BLOOD SPECIMENOrdering Facility: [facility] Address: [address] [place] [address] Performed By: #### 5 7021-8 ####[facility]ORATORYCLIA [id number] [address] STATES [facility] Basophils/100 WBC (Bld) 0.4 % Normal [facility] Comment on above: Order Comment: Speci men Type: BLOOD SPECIMENOrdering Facility: [facility] Address: [address] [place] [address] Performed By: #### 5 7021-8 ####[facility]ORATORYCLIA [id number] [address] Differential cell count method Nom (Bld) Auto Normal [facility] Comment on above: Order Comment: Speci men Type: BLOOD SPECIMENOrdering Facility: [facility] Address: [address] [place] [address] Performed By: #### 5 7021-8 ####[facility]ORATORYCLIA [id number] [address] [place] Eosinophils (Bld) [#/Vol] 0.63 10*3/uL High <0.46 [facility] Comment on above: Order Comment: Speci men Type: BLOOD SPECIMENOrdering Facility: [facility] Address: [address] [place] [address] Performed By: #### 5 7021-8 ####[facility] LABORATORYCLIA [id number] [address] [place] Eosinophils/100 WBC (Bld) 5.8 % Normal [facility] Comment on above: Order Comment: Speci men Type: BLOOD SPECIMENOrdering Facility: [facility] Address: [address] [place] [address] Performed By: #### 5 7021-8 ####[facility] LABORATORYCLIA [id number] [address] Erythrocyte distribution width (RBC) [Ratio] 16.8 % High 11.5-15.0 [facility] Comment on above: Order Comment: Speci men Type: BLOOD SPECIMENOrdering Facility: [facility] Address: [address] [place] [address] Performed By: #### 5 7021-8 ####[facility]ORATORYCLIA [id number] [address] Hematocrit (Bld) [Volume fraction] 31.2 % Low 39.0-51.0 [facility] Comment on above: Order Comment: Speci men Type: BLOOD SPECIMENOrdering Facility: [facility] Address: [address] [place] [address] Performed By: #### 5 7021-8 ####[facility] LABORATORYCLIA [id number] [address] [place] Hemoglobin (Bld) [Mass/Vol] 9.1 g/dL Low 13.0-17.0 [facility] Comment on above: Order Comment: Speci men Type: BLOOD SPECIMENOrdering Facility: [facility] Address: [address] [place] [address] Performed By: #### 5 7021-8 ####[facility] LABORATORYCLIA [id number] [address] IMMATURE GRAN % 0.6 % Normal [facility] Comment on above: Order Comment: Speci men Type: BLOOD SPECIMENOrdering Facility: [facility] Address: [address] [place] [address] Performed By: #### 5 7021-8 ####[facility] LABORATORYCLIA [id number] [address] IMMATURE GRAN ABS 0.07 k/uL Normal <0.10 [facility] Comment on above: Order Comment: Speci men Type: BLOOD SPECIMENOrdering Facility: [facility] Address: [address] [place] [address] Performed By: #### 5 7021-8 ####[facility]ORATORYCLIA [id number] [address] Lymphocytes (Bld) [#/Vol] 2.16 10*3/uL Normal 1.00-4.00 [facility] Comment on above: Order Comment: Speci men Type: BLOOD SPECIMENOrdering Facility: [facility] Address: [address] [place] [address] Performed By: #### 5 7021-8 ####[facility]ORATORYCLIA [id number] [address] Lymphocytes/100 WBC (Bld) 20.0 % Normal [facility] Comment on above: Order Comment: Speci men Type: BLOOD SPECIMENOrdering Facility: [facility] Address: [address] [place] [address] Performed By: #### 5 7021-8 ####[facility]ORATORYCLIA [id number] [address] STATES [facility] MCH (RBC) [Entitic mass] 27.7 pg Normal 26.0-34.0 [facility] Comment on above: Order Comment: Speci men Type: BLOOD SPECIMENOrdering Facility: [facility] Address: [address] [place] [address] Performed By: #### 5 7021-8 ####[facility]ORATORYCLIA [id number] [address] STATES OF [facility] MCHC (RBC) [Mass/Vol] 29.2 g/dL Low 30.5-36.0 [facility] Comment on above: Order Comment: Speci men Type: BLOOD SPECIMENOrdering Facility: [facility] Address: [address] [place] [address] Performed By: #### 5 7021-8 ####[facility]ORATORYCLIA [id number] [address] MCV (RBC) [Entitic vol] 95.1 fL Normal 80.0-100.0 [facility] Comment on above: Order Comment: Speci men Type: BLOOD SPECIMENOrdering Facility: [facility] Address: [address] [place] [address] Performed By: #### 5 7021-8 ####[facility]ORATORYCLIA [id number] [address] [place] Monocytes (Bld) [#/Vol] 0.63 10*3/uL Normal <0.87 [facility] Comment on above: Order Comment: Speci men Type: BLOOD SPECIMENOrdering Facility: [facility] Address: [address] [place] [address] Performed By: #### 5 7021-8 ####[facility]ORATORYCLIA [id number] [address] Monocytes/100 WBC (Bld) 5.8 % Normal [facility] Comment on above: Order Comment: Speci men Type: BLOOD SPECIMENOrdering Facility: [facility] Address: [address] [place] [address] Performed By: #### 5 7021-8 ####[facility]ORATORYCLIA [id number] [address] [place] Neutrophils (Bld) [#/Vol] 7.25 10*3/uL Normal 1.45-7.50 [facility] Comment on above: Order Comment: Speci men Type: BLOOD SPECIMENOrdering Facility: [facility] Address: [address] [place] [address] Performed By: #### 5 7021-8 ####[facility]ORATORYCLIA [id number] [address] Neutrophils/100 WBC (Bld) 67.4 % Normal [facility] Comment on above: Order Comment: Speci men Type: BLOOD SPECIMENOrdering Facility: [facility] Address: [address] [place] [address] Performed By: #### 5 7021-8 ####[facility]ORATORYCLIA [id number] [address] Nucleated RBC (Bld) [#/Vol] 10*3/uL Normal <0.01 [facility] Comment on above: Order Comment: Speci men Type: BLOOD SPECIMENOrdering Facility: [facility] Address: [address] [place] [address] Performed By: #### 5 7021-8 ####[facility]ORATORYCLIA [id number] [address] Nucleated RBC/100 WBC (Bld) [Ratio] 0.0 /100 WBC Normal [facility] Comment on above: Order Comment: Speci men Type: BLOOD SPECIMENOrdering Facility: [facility] Address: [address] [place] [address] Performed By: #### 5 7021-8 ####[facility]ORATORYCLIA [id number] [address] Platelet mean volume (Bld) [Entitic vol] 11.2 fL Normal 9.0-12.7 [facility] Comment on above: Order Comment: Speci men Type: BLOOD SPECIMENOrdering Facility: [facility] Address: [address] [place] [address] Performed By: #### 5 7021-8 ####[facility]ORATORYCLIA [id number] [address] [place] Platelets (Bld) [#/Vol] 245 10*3/uL Normal 150-400 [facility] Comment on above: Order Comment: Speci men Type: BLOOD SPECIMENOrdering Facility: [facility] Address: [address] [place], [place] [address] Performed By: #### 5 7021-8 ####[facility]ORATORYCLIA [id number] [address] STATES OF [facility] RBC (Bld) [#/Vol] 3.28 10*6/uL Low 4.20-6.00 [facility] Comment on above: Order Comment: Speci men Type: BLOOD SPECIMENOrdering Facility: [facility] Address: [address] [place], [place] [address] Performed By: #### 5 7021-8 ####[facility]ORATORYCLIA [id number] [address] [place] [facility] WBC (Bld) [#/Vol] 10.78 10*3/uL Normal 3.70-11.00 [facility] Comment on above: Order Comment: Speci men Type: BLOOD SPECIMENOrdering Facility: [facility] Address: [address] [place] [address] Performed By: #### 5 7021-8 ####[facility]ORATORYCLIA [id number] [address] OF [facility] CSF MANUAL DIFFon 07-26-2021 DIF TTL, CSF 100 cells counted Normal [facility] Comment on above: Order Comment: Speci men Type: CEREBROSPINAL FLUIDOrdering Facility: [facility] Address: [address] [place], [place] [address] Performed By: #### 3 4563-7, [id number], [id number] ####[facility]ORATORYCLIA [id number] [address] [place] LYMPH%, CSF 26 % Low 50-90 [facility] Comment on above: Order Comment: Speci men Type: CEREBROSPINAL FLUIDOrdering Facility: [facility] Address: [address] [place], [place] [address] Performed By: #### 3 4563-7, [id number], [id number] ####[facility]ORATORYCLIA [id number] [place] [address] [place] MACRO%, CSF 10 % High <1 [facility] Comment on above: Order Comment: Speci men Type: CEREBROSPINAL FLUIDOrdering Facility: [facility] Address: [address] [place] [address] Performed By: #### 3 4563-7, [id number], [id number] ####[facility]ORATORYCLIA [id number] [place] [address] [place] MONO%, CSF 20 % Normal 10-50 [facility] Comment on above: Order Comment: Speci men Type: CEREBROSPINAL FLUIDOrdering Facility: [facility] Address: [address] [place] [address] Performed By: #### 3 4563-7, [id number], [id number] ####[facility]ORATORYCLIA [id number] [place] [address] [place] NEUT%, CSF 40 % High 0-3 [facility] Comment on above: Order Comment: Speci men Type: CEREBROSPINAL FLUIDOrdering Facility: [facility] Address: [address] [place] [address] Performed By: #### 3 4563-7, [id number], [id number] ####[facility]ATORYCLIA [id number] [address] [place] OTHER CL%, CSF 2 % Normal [facility] Comment on above: Order Comment: Speci men Type: CEREBROSPINAL FLUIDOrdering Facility: [facility] Address: [address] [place] [address] Result Comment: Path review to follow. Performed By: #### 3 4563-7, [id number], [id number] ####[facility]ORATORYCLIA [id number] [place] [address] [place] REAC LYMPH %, CSF 2 % Normal [facility] Comment on above: Order Comment: Speci men Type: CEREBROSPINAL FLUIDOrdering Facility: [facility] Address: [address] [place] [address] Performed By: #### 3 4563-7, [id number], [id number] ####[facility] LABORATORYCLIA [id number] [address] CSF PATHOLOGIST INTERP (LAB REFLEX ORDER-NO BILL)on 07-26-2021 CSF STAFF REVIEW Negative for maligna nt cells. Rare bacteria present, cocci in pairs and chains. Correlation with CSF cultures is recommended. Normal [facility] Comment on above: Order Comment: Speci men Type: CEREBROSPINAL FLUIDOrdering Facility: [facility] Address: [address] [place] [address] Performed By: #### 3 4563-7, [id number], [id number] ####[facility] LABORATORYCLIA [id number] [address] Pathologist name Reviewed by Amador Stevens MD [facility] Comment on above: Order Comment: Speci men Type: CEREBROSPINAL FLUIDOrdering Facility: [facility] Address: [address] [place] [address] Performed By: #### 3 4563-7, [id number], [id number] ####[facility] LABORATORYCLIA [id number] [address] [place] Cell count panel (CSF)on Clarity (CSF) Slightly Cloudy Abnormal Clear [facility] Comment on above: Order Comment: Speci men Type: CEREBROSPINAL FLUIDOrdering Facility: [facility] Address: [address] [place] [address] Performed By: #### 3 4563-7, [id number], [id number] ####[facility] LABORATORYCLIA [id number] [address] [place] Clarity (Unsp spec) Clear Normal Clear [facility] Comment on above: Order Comment: Speci men Type: CEREBROSPINAL FLUIDOrdering Facility: [facility] Address: [address] [place] [address] Performed By: #### 3 4563-7, [id number], [id number] ####[facility]ORATORYCLIA [id number] [address] Color (CSF) Colorless Normal Colorless [facility] Comment on above: Order Comment: Speci men Type: CEREBROSPINAL FLUIDOrdering Facility: [facility] Address: [address] [place] [address] Performed By: #### 3 4563-7, [id number], [id number] ####[facility]ORATORYCLIA [id number] [address] Color (Spun CSF) Not Indicated Normal Colorless [facility] Comment on above: Order Comment: Speci men Type: CEREBROSPINAL FLUIDOrdering Facility: [facility] Address: [address] [place] [address] Performed By: #### 3 4563-7, [id number], [id number] ####[facility]ORATORYCLIA [id number] [address] CSF TUBE NUMBER [employer] Normal [facility] Comment on above: Order Comment: Speci men Type: CEREBROSPINAL FLUIDOrdering Facility: [facility] Address: [address] [place] [address] Performed By: #### 3 4563-7, [id number], [id number] ####[facility]ORATORYCLIA [id number] [address] RBC Manual cnt (CSF) [#/Vol] 1 cells/uL Normal 0-[address] [place] [address] Comment on above: Order Comment: Speci men Type: CEREBROSPINAL FLUIDOrdering Facility: [facility] Address: [address] [place] [address] Performed By: #### 3 4563-7, [id number], [id number] ####[facility]ORATORYCLIA [id number] [address] WBC Manual cnt (CSF) [#/Vol] 50 cells/uL High 0-5 [facility] Comment on above: Order Comment: Speci men Type: CEREBROSPINAL FLUIDOrdering Facility: [facility] Address: [address] [place] [address] Performed By: #### 3 4563-7, [id number], [id number] ####[facility]ORATORYCLIA [id number] [place] [address] [place] Glucose CSF-mCncon Glucose (CSF) [Mass/Vol] 64 mg/dL Normal 40-70 [facility] Comment on above: Order Comment: Speci men Type: CEREBROSPINAL FLUIDOrdering Facility: [facility] Address: [address] [place] [address] Result Comment: Lumb ar CSF glucose values of healthy patients are approximately 60% of the plasma values and must always be compared with a concurrently measured plasma value for adequate clinical interpretation.References: 1. Glucose HK (GLUC3) [package insert V 12.0 Cuban]. [employer], [place], [place]. September 2015. 2. Michelle Moore, Loki HGarfield (2015). Chapter 7: Glucose and Lactate. F. Irina rose al.(eds.), Cerebrospinal Fluid in Clinical Neurology. [place]: [employer]. Performed By: #### 2 880-3, 2342-4 ####[facility]ORATORYCLIA [id number] [place] [address] [place] Magnesium SerPl-ncon 07-26 Magnesium [Mass/Vol] 2.3 mg/dL Normal 1.7-2.3 [facility] Comment on above: Order Comment: Speci men Type: BLOOD SPECIMENOrdering Facility: [facility] Address: [address] [place] [address] Performed By: #### 1 9123-9, 2777-1, 3016-3 ####[facility]ORATORYCLIA [id number] [place] [address] [place] NURSING PROGon 07-26-2021 NURSING PROG Normal [facility] Phosphate SerPl-mCncon 07-26 Phosphate [Mass/Vol] 2.6 mg/dL Low 2.7-4.8 [facility] Comment on above: Order Comment: Speci men Type: BLOOD SPECIMENOrdering Facility: [facility] Address: [address] [place] [address] Performed By: #### 1 9123-9, 2777-1, 3016-3 ####[facility]ORATORYCLIA [id number] [place] [address] [place] Prot CSF-mCncon 07-26-2021 Protein (CSF) [Mass/Vol] 64 mg/dL High 15-45 [facility] Comment on above: Order Comment: Speci men Type: CEREBROSPINAL FLUIDOrdering Facility: [facility] Address: [address] [place] [address] Performed By: #### 2 880-3, 2342-4 ####[facility]ORATORYCLIA [id number] [address] OF [facility] THERAPY NTon 07-26-2021 THERAPY NT Normal [facility] TSH SerPl-aCncon 07-26-2021 TSH Qn 1.470 m[IU]/L Normal 0.270-4.200 [facility] Comment on above: Order Comment: Speci men Type: BLOOD SPECIMENOrdering Facility: [facility] Address: [address] [place] [address] Performed By: #### 1 9123-9, 2777-1, 3016-3 ####[facility]ORATORYCLIA [id number] [address] [place] VITAMIN B12 BLOODon 07-27-19 Cobalamin (Vitamin B12) [Mass/Vol] 934 pg/mL Normal 232-1,245 [facility] Comment on above: Order Comment: Speci men Type: BLOOD SPECIMENOrdering Facility: [facility] Address: [address] [place] [address] Performed By: #### B 12 ####[facility]ORATORYCLIA [id number] [place] [address] [place] aPTT PPPon 07-26-2021 aPTT Coag (PPP) [Time] 53.6 s High 23.0-32.4 [facility] Comment on above: Order Comment: Speci men Type: BLOOD SPECIMENOrdering Facility: [facility] Address: [address] [place] [address] Performed By: #### 1 4979-9 ####[facility]ORATORYCLIA [id number] [address] aPTT Coag (PPP) [Time] 44.9 s High 23.0-32.4 [facility] Comment on above: Order Comment: Speci men Type: BLOOD SPECIMENOrdering Facility: [facility] Address: [address] [place] [address] Performed By: #### 1 4979-9 ####[facility]ORATORYCLIA [id number] [address] ALLIED HEALTHon 07-25-2021 ALLIED HEALTH HNO ID: [id number] Author: RT Rajwinder(R) Service: Radiology Author Type: Technologist Type: Allied Health Filed: 07/25/2021 1:37 PM Note Text: Called floor for MRI screening form [id number] Normal [facility] Bacteria Bld Culton 07-26-19 22 Bacteria identified Cx Nom (Bld) CULTURE, BLOOD: No growth 5 days Normal [facility] Comment on above: Performed By: #### 6 00-7 ####[facility]ORATORYCLIA [id number] [address] Bacteria identified Cx Nom (Bld) CULTURE, BLOOD: No growth 5 days Normal [facility] Comment on above: Performed By: #### 6 00-7 ####[facility]ORATORYCLIA [id number] [address] CASE MANAGEMon 07-25-2021 CASE MANAGEM Normal [facility] CBC W Auto Differential pane l (Bld)on 07-25-2021 Basophils (Bld) [#/Vol] 0.06 10*3/uL Normal <0.11 [facility] Comment on above: Order Comment: Speci men Type: BLOOD SPECIMENOrdering Facility: [facility] Address: [address] [address] Performed By: #### 5 7021-8 ####[facility] LABORATORYCLIA [id number] [address] STATES [facility] Basophils/100 WBC (Bld) 0.6 % Normal [facility] Comment on above: Order Comment: Speci men Type: BLOOD SPECIMENOrdering Facility: [facility] Address: [address] [place] [address] Performed By: #### 5 7021-8 ####[facility]ORATORYCLIA [id number] [address] Differential cell count method Nom (Bld) Auto Normal [facility] Comment on above: Order Comment: Speci men Type: BLOOD SPECIMENOrdering Facility: [facility] Address: [address] [place] [address] Performed By: #### 5 7021-8 ####[facility]ORATORYCLIA [id number] [address] [place] Eosinophils (Bld) [#/Vol] 0.26 10*3/uL Normal <0.46 [facility] Comment on above: Order Comment: Speci men Type: BLOOD SPECIMENOrdering Facility: [facility] Address: [address] [place] [address] Performed By: #### 5 7021-8 ####[facility]ORATORYCLIA [id number] [address] STATES [facility] Eosinophils/100 WBC (Bld) 2.5 % Normal [facility] Comment on above: Order Comment: Speci men Type: BLOOD SPECIMENOrdering Facility: [facility] Address: [address] [place] [address] Performed By: #### 5 7021-8 ####[facility]ORATORYCLIA [id number] [address] [place] Erythrocyte distribution width (RBC) [Ratio] 16.9 % High 11.5-15.0 [facility] Comment on above: Order Comment: Speci men Type: BLOOD SPECIMENOrdering Facility: [facility] Address: [address] [place] [address] Performed By: #### 5 7021-8 ####[facility]ORATORYCLIA [id number] [address] [facility] Hematocrit (Bld) [Volume fraction] 29.6 % Low 39.0-51.0 [facility] Comment on above: Order Comment: Speci men Type: BLOOD SPECIMENOrdering Facility: [facility] Address: [address] [place] [address] Performed By: #### 5 7021-8 ####[facility]ORATORYCLIA [id number] [address] Hemoglobin (Bld) [Mass/Vol] 8.8 g/dL Low 13.0-17.0 [facility] Comment on above: Order Comment: Speci men Type: BLOOD SPECIMENOrdering Facility: [facility] Address: [address] [place] [address] Performed By: #### 5 7021-8 ####[facility]ORATORYCLIA [id number] [address] IMMATURE GRAN % 0.6 % Normal [facility] Comment on above: Order Comment: Speci men Type: BLOOD SPECIMENOrdering Facility: [facility] Address: [address] [place] [address] Performed By: #### 5 7021-8 ####[facility]ORATORYCLIA [id number] [address] IMMATURE GRAN ABS 0.06 k/uL Normal <0.10 [facility] Comment on above: Order Comment: Speci men Type: BLOOD SPECIMENOrdering Facility: [facility] Address: [address] [place] [address] Performed By: #### 5 7021-8 ####[facility]ORATORYCLIA [id number] [address] [facility] Lymphocytes (Bld) [#/Vol] 2.15 10*3/uL Normal 1.00-4.00 [facility] Comment on above: Order Comment: Speci men Type: BLOOD SPECIMENOrdering Facility: [facility] Address: [address] [place] [address] Performed By: #### 5 7021-8 ####[facility]ORATORYCLIA [id number] [address] Lymphocytes/100 WBC (Bld) 20.7 % Normal [facility] Comment on above: Order Comment: Speci men Type: BLOOD SPECIMENOrdering Facility: [facility] Address: [address] [place] [address] Performed By: #### 5 7021-8 ####[facility]ORATORYCLIA [id number] [address] STATES [facility] MCH (RBC) [Entitic mass] 28.2 pg Normal 26.0-34.0 [facility] Comment on above: Order Comment: Speci men Type: BLOOD SPECIMENOrdering Facility: [facility] Address: [address] [place] [address] Performed By: #### 5 7021-8 ####[facility]ORATORYCLIA [id number] [address] STATES [facility] MCHC (RBC) [Mass/Vol] 29.7 g/dL Low 30.5-36.0 [facility] Comment on above: Order Comment: Speci men Type: BLOOD SPECIMENOrdering Facility: [facility] Address: [address] [place] [address] Performed By: #### 5 7021-8 ####[facility]ORATORYCLIA [id number] [address] MCV (RBC) [Entitic vol] 94.9 fL Normal 80.0-100.0 [facility] Comment on above: Order Comment: Speci men Type: BLOOD SPECIMENOrdering Facility: [facility] Address: [address] [place] [address] Performed By: #### 5 7021-8 ####[facility] LABORATORYCLIA [id number] [place] [address] [place] Monocytes (Bld) [#/Vol] 0.62 10*3/uL Normal <0.87 [facility] Comment on above: Order Comment: Speci men Type: BLOOD SPECIMENOrdering Facility: [facility] Address: [address] [place] [address] Performed By: #### 5 7021-8 ####KEY [facility] LABORATORYCLIA [id number] [address] [place] Monocytes/100 WBC (Bld) 6.0 % Normal [facility] Comment on above: Order Comment: Speci men Type: BLOOD SPECIMENOrdering Facility: [facility] Address: [address] [place] [address] Performed By: #### 5 7021-8 ####[facility] LABORATORYCLIA [id number] [address] [place] Neutrophils (Bld) [#/Vol] 7.25 10*3/uL Normal 1.45-7.50 [facility] Comment on above: Order Comment: Speci men Type: BLOOD SPECIMENOrdering Facility: [facility] Address: [address] [place] [address] Performed By: #### 5 7021-8 ####[facility]ORATORYCLIA [id number] [address] [place] Neutrophils/100 WBC (Bld) 69.6 % Normal [facility] Comment on above: Order Comment: Speci men Type: BLOOD SPECIMENOrdering Facility: [facility] Address: [address] [place] [address] Performed By: #### 5 7021-8 ####[facility] LABORATORYCLIA [id number] [place] [address] [place] Nucleated RBC (Bld) [#/Vol] 10*3/uL Normal <0.01 [facility] Comment on above: Order Comment: Speci men Type: BLOOD SPECIMENOrdering Facility: [facility] Address: [address] [place] [address] Performed By: #### 5 7021-8 ####[facility] LABORATORYCLIA [id number] [address] [place] Nucleated RBC/100 WBC (Bld) [Ratio] 0.0 /100 WBC Normal [facility] Comment on above: Order Comment: Speci men Type: BLOOD SPECIMENOrdering Facility: [facility] Address: [address] [place] [address] Performed By: #### 5 7021-8 ####[facility] LABORATORYCLIA [id number] [place] [address] [place] Platelet mean volume (Bld) [Entitic vol] 11.3 fL Normal 9.0-12.7 [facility] Comment on above: Order Comment: Speci men Type: BLOOD SPECIMENOrdering Facility: [facility] Address: [address] [place] [address] Performed By: #### 5 7021-8 ####[facility] LABORATORYCLIA [id number] [place] [address] [place] Platelets (Bld) [#/Vol] 243 10*3/uL Normal 150-400 [facility] Comment on above: Order Comment: Speci men Type: BLOOD SPECIMENOrdering Facility: [facility] Address: [address] Performed By: #### 5 7021-8 ####[facility] LABORATORYCLIA [id number] [place] [address] [place] RBC (Bld) [#/Vol] 3.12 10*6/uL Low 4.20-6.00 [facility] Comment on above: Order Comment: Speci men Type: BLOOD SPECIMENOrdering Facility: [facility] Address: [address] [place] [address] Performed By: #### 5 7021-8 ####[facility] LABORATORYCLIA [id number] [place] [address] [place] WBC (Bld) [#/Vol] 10.40 10*3/uL Normal 3.70-11.00 [facility] Comment on above: Order Comment: Speci men Type: BLOOD SPECIMENOrdering Facility: [facility] Address: [address] [place] [address] Performed By: #### 5 7021-8 ####[facility] LABORATORYCLIA [id number] [address] [place] CONSULT PROGon 07-25-2021 CONSULT PROG Normal [facility] MYCOPLASMA PNEUM IGMon 07-25 M. PNEUMO IGM, QUAL Negative Normal Negative [facility] Comment on above: Order Comment: Speci men Type: BLOOD SPECIMENOrdering Facility: [facility] Address: [address] [place] [address] Result Comment: Myco plasma pneumoniae IgM antibody test is used as an aid in diagnosis of recent infection with M. pneumoniae. It may occasionally remain elevated for extended periods after an acute infection. Cannot exclude recent infection if the specimen collected 7-10 days after onset of signs and symptoms. Clinical correlation is required. Performed By: #### M YCOPM ####[facility] LABCLIA [id number] [facility]ITALDES [id number] [place] NURSING PROGon 07-25-2021 NURSING PROG Normal [facility] THERAPY NTon 07-25-2021 THERAPY NT Normal [facility] THERAPY NT Normal [facility] aPTT PPPon 07-25-2021 aPTT Coag (PPP) [Time] 62.6 s High 23.0-32.4 [facility] Comment on above: Order Comment: Speci men Type: BLOOD SPECIMENOrdering Facility: [facility] Address: [address] [place] [address] Performed By: #### 1 4979-9 ####[facility] LABORATORYCLIA [id number] [address] [place] Bacteria Ur Culton 03-20-202 2 Bacteria identified Cx Nom (U) CULTURE, URINE: No growth (<100 CFU/ml) Normal [facility] Comment on above: Performed By: #### 6 30-4 ####[facility] LABORATORYCLIA [id number] [place] [address] [place] Basic metabolic 2000 panelon 07-24-2021 Anion gap [Moles/Vol] 13 mmol/L Normal 9-18 [facility] Comment on above: Order Comment: Speci men Type: BLOOD SPECIMENOrdering Facility: [facility] Address: [address] [place] [address] Performed By: #### 1 9123-9, PROCCARLITOS, 7-1, 55584-4 ####[facility] LABORATORYCLIA [id number] [place] [address] [place] Calcium [Mass/Vol] 9.5 mg/dL Normal 8.5-10.2 [facility] Comment on above: Order Comment: Speci men Type: BLOOD SPECIMENOrdering Facility: [facility] Address: [address] [address] Performed By: #### 1 9123-9, PROCAL, 2776-1, 03225-2 ####[facility] LABORATORYCLIA [id number] [address] [place] Chloride [Moles/Vol] 102 mmol/L Normal 97-105 [facility] Comment on above: Order Comment: Speci men Type: BLOOD SPECIMENOrdering Facility: [facility] Address: [address] [address] Performed By: #### 1 9123-9, PROCAL, 2776-1, 02485-8 ####[facility] LABORATORYCLIA [id number] [place] [address] [place] CO2 [Moles/Vol] 28 mmol/L Normal 22-30 [facility] Comment on above: Order Comment: Speci men Type: BLOOD SPECIMENOrdering Facility: [facility] Address: [address] [address] Performed By: #### 1 9123-9, PROCAL, 2777-1, 62540-3 ####[facility]ITALCLIA [id number] [address] STATES OF [facility] Creatinine [Mass/Vol] 0.86 mg/dL Normal 0.73-1.22 [facility] Comment on above: Order Comment: Speci men Type: BLOOD SPECIMENOrdering Facility: [facility] Address: [address] [address] Performed By: #### 1 9123-9, PROCWY, 2777-1, 54664-6 ####[facility]PITALCLIA [id number] [address] ESTIMATED GLOMERULAR FILTRATION RATE 94 mL/min/1.73m??? Normal >=60 [facility] Comment on above: Order Comment: Speci men Type: BLOOD SPECIMENOrdering Facility: [facility] Address: [address] [address] Result Comment: Luzmaria mated Glomerular Filtration Rate [...] actual GFR. Performed By: #### 1 9123-9, [facility], 2777-1, 63047-9 ####[facility]ORATORYCLIA [id number] [address] STATES [facility] Glucose [Mass/Vol] 148 mg/dL High 74-99 [facility] Comment on above: Order Comment: Speci men Type: BLOOD SPECIMENOrdering Facility: [facility] Address: [address] [address] Result Comment: The [place] [employer] (ADA) provides guidance for cutoff [...] Standards of Medical Care in Diabetes 2016, [employer] [place] [employer]. Diabetes Care. 2016.39(Suppl 1). Performed By: #### 1 9123-9, KATIE, 2776-, 88494-3 ####[facility] LABORATORYCLIA [id number] [place] [address] [place] Potassium [Moles/Vol] 4.0 mmol/L Normal 3.7-5.1 [facility] Comment on above: Order Comment: Shira feldman Type: BLOOD SPECIMENOrdering Facility: [facility] Address: [address] [place] [address] Performed By: #### 1 9123-9, [facility], 2776-05, 40947-3 ####[facility]PITALCLIA [id number] [address] [place] [facility] Sodium [Moles/Vol] 143 mmol/L Normal 136-144 [facility] Comment on above: Order Comment: Shira feldman Type: BLOOD SPECIMENOrdering Facility: [facility] Address: [address] [place] [address] Performed By: #### 1 9123-9, [place], 2776-05, 41127-5 ####[facility]ORATORYCLIA [id number] [address] [place] [facility] Urea nitrogen [Mass/Vol] 38 mg/dL High 9-24 [facility] Comment on above: Order Comment: Shira feldman Type: BLOOD SPECIMENOrdering Facility: [facility] Address: [address] [place] [address] Performed By: #### 1 9123-9, [facility], 2776-1, 41704-9 ####[facility]ORATORYCLIA [id number] [place] [address] [place] CBC W Auto Differential pane l (Bld)on 07-24-2021 Basophils (Bld) [#/Vol] 0.06 10*3/uL Normal <0.11 [facility] Comment on above: Order Comment: Speci men Type: BLOOD SPECIMENOrdering Facility: [facility] Address: [address] [address] Performed By: #### 5 7021-8 ####[facility]ORATORYCLIA [id number] [place] [address] [place] Basophils/100 WBC (Bld) 0.6 % Normal [facility] Comment on above: Order Comment: Speci men Type: BLOOD SPECIMENOrdering Facility: [facility] Address: [address] [place] [address] Performed By: #### 5 7021-8 ####[facility]ORATORYCLIA [id number] [address] [place] [facility] Differential cell count method Nom (Bld) Auto Normal [facility] Comment on above: Order Comment: Speci men Type: BLOOD SPECIMENOrdering Facility: [facility] Address: [address] [place] [address] Performed By: #### 5 7021-8 ####[facility] LABORATORYCLIA [id number] [place] [address] [place] Eosinophils (Bld) [#/Vol] 0.03 10*3/uL Normal <0.46 [facility] Comment on above: Order Comment: Speci men Type: BLOOD SPECIMENOrdering Facility: [facility] Address: [address] [place] [address] Performed By: #### 5 7021-8 ####[facility] LABORATORYCLIA [id number] [address] Eosinophils/100 WBC (Bld) 0.3 % Normal [facility] Comment on above: Order Comment: Speci men Type: BLOOD SPECIMENOrdering Facility: [facility] Address: [address] [place] [address] Performed By: #### 5 7021-8 ####[facility] LABORATORYCLIA [id number] [address] Erythrocyte distribution width (RBC) [Ratio] 17.0 % High 11.5-15.0 [facility] Comment on above: Order Comment: Speci men Type: BLOOD SPECIMENOrdering Facility: [facility] Address: [address] [place] [address] Performed By: #### 5 7021-8 ####[facility] LABORATORYCLIA [id number] [address] Hematocrit (Bld) [Volume fraction] 30.5 % Low 39.0-51.0 [facility] Comment on above: Order Comment: Speci men Type: BLOOD SPECIMENOrdering Facility: [facility] Address: [address] [place] [address] Performed By: #### 5 7021-8 ####[facility] LABORATORYCLIA [id number] [address] Hemoglobin (Bld) [Mass/Vol] 9.0 g/dL Low 13.0-17.0 [facility] Comment on above: Order Comment: Speci men Type: BLOOD SPECIMENOrdering Facility: [facility] Address: [address] [place] [address] Performed By: #### 5 7021-8 ####[facility] LABORATORYCLIA [id number] [address] IMMATURE GRAN % 0.5 % Normal [facility] Comment on above: Order Comment: Speci men Type: BLOOD SPECIMENOrdering Facility: [facility] Address: [address] [place] [address] Performed By: #### 5 7021-8 ####[facility] LABORATORYCLIA [id number] [address] IMMATURE GRAN ABS 0.05 k/uL Normal <0.10 [facility] Comment on above: Order Comment: Speci men Type: BLOOD SPECIMENOrdering Facility: [facility] Address: [address] [address] Performed By: #### 5 7021-8 ####[facility] LABORATORYCLIA [id number] [address] [place] Lymphocytes (Bld) [#/Vol] 1.68 10*3/uL Normal 1.00-4.00 [facility] Comment on above: Order Comment: Speci men Type: BLOOD SPECIMENOrdering Facility: [facility] Address: [address] [place] [address] Performed By: #### 5 7021-8 ####[facility] LABORATORYCLIA [id number] [address] Lymphocytes/100 WBC (Bld) 16.2 % Normal [facility] Comment on above: Order Comment: Speci men Type: BLOOD SPECIMENOrdering Facility: [facility] Address: [address] [place] [address] Performed By: #### 5 7021-8 ####[facility] LABORATORYCLIA [id number] [address] [place] [facility] MCH (RBC) [Entitic mass] 27.4 pg Normal 26.0-34.0 [facility] Comment on above: Order Comment: Speci men Type: BLOOD SPECIMENOrdering Facility: [facility] Address: [address] [place] [address] Performed By: #### 5 7021-8 ####[facility] LABORATORYCLIA [id number] [address] [place] MCHC (RBC) [Mass/Vol] 29.5 g/dL Low 30.5-36.0 [facility] Comment on above: Order Comment: Speci men Type: BLOOD SPECIMENOrdering Facility: [facility] Address: [address] [place] [address] Performed By: #### 5 7021-8 ####[facility] LABORATORYCLIA [id number] [address] [place] MCV (RBC) [Entitic vol] 93.0 fL Normal 80.0-100.0 [facility] Comment on above: Order Comment: Speci men Type: BLOOD SPECIMENOrdering Facility: [facility] Address: [address] [place] [address] Performed By: #### 5 7021-8 ####[facility] LABORATORYCLIA [id number] [place] [address] [place] Monocytes (Bld) [#/Vol] 0.63 10*3/uL Normal <0.87 [facility] Comment on above: Order Comment: Speci men Type: BLOOD SPECIMENOrdering Facility: [facility] Address: [address] [place] [address] Performed By: #### 5 7021-8 ####[facility] LABORATORYCLIA [id number] [address] [place] Monocytes/100 WBC (Bld) 6.1 % Normal [facility] Comment on above: Order Comment: Speci men Type: BLOOD SPECIMENOrdering Facility: [facility] Address: [address] [place] [address] Performed By: #### 5 7021-8 ####[facility] LABORATORYCLIA [id number] [place] [address] [place] Neutrophils (Bld) [#/Vol] 7.91 10*3/uL High 1.45-7.50 [facility] Comment on above: Order Comment: Speci men Type: BLOOD SPECIMENOrdering Facility: [facility] Address: [address] [place] [address] Performed By: #### 5 7021-8 ####[facility]ORATORYCLIA [id number] [place] [address] [place] Neutrophils/100 WBC (Bld) 76.3 % Normal [facility] Comment on above: Order Comment: Speci men Type: BLOOD SPECIMENOrdering Facility: [facility] Address: [address] [place] [address] Performed By: #### 5 7021-8 ####[facility]ORATORYCLIA [id number] [address] [place] Nucleated RBC (Bld) [#/Vol] 10*3/uL Normal <0.01 [facility] Comment on above: Order Comment: Speci men Type: BLOOD SPECIMENOrdering Facility: [facility] Address: [address] [place] [address] Performed By: #### 5 7021-8 ####[facility] LABORATORYCLIA [id number] [address] [place] Nucleated RBC/100 WBC (Bld) [Ratio] 0.0 /100 WBC Normal [facility] Comment on above: Order Comment: Speci men Type: BLOOD SPECIMENOrdering Facility: [facility] Address: [address] [place] [address] Performed By: #### 5 7021-8 ####[facility]ORATORYCLIA [id number] [address] [place] Platelet mean volume (Bld) [Entitic vol] 11.1 fL Normal 9.0-12.7 [facility] Comment on above: Order Comment: Speci men Type: BLOOD SPECIMENOrdering Facility: [facility] Address: [address] [place] [address] Performed By: #### 5 7021-8 ####[facility]ORATORYCLIA [id number] [address] [place] Platelets (Bld) [#/Vol] 285 10*3/uL Normal 150-400 [facility] Comment on above: Order Comment: Speci men Type: BLOOD SPECIMENOrdering Facility: [facility] Address: [address] [place] [address] Performed By: #### 5 7021-8 ####[facility]ORATORYCLIA [id number] [address] [place] RBC (Bld) [#/Vol] 3.28 10*6/uL Low 4.20-6.00 [facility] Comment on above: Order Comment: Speci men Type: BLOOD SPECIMENOrdering Facility: [facility] Address: [address] [place] [address] Performed By: #### 5 7021-8 ####[facility]ORATORYCLIA [id number] [place] [address] [place] WBC (Bld) [#/Vol] 10.36 10*3/uL Normal 3.70-11.00 [facility] Comment on above: Order Comment: Speci men Type: BLOOD SPECIMENOrdering Facility: [facility] Address: [address] [place] [address] Performed By: #### 5 7021-8 ####[facility] LABORATORYCLIA [id number] [address] [place] Legionella Ag Ur Qlon 2021 Legionella sp Ag Ql (U) Negative Normal Negative [facility] Comment on above: Order Comment: Speci men Type: URINE SPECIMENOrdering Facility: [facility] Address: [address] [place] [address] Performed By: #### 3 2781-7 ####[facility] LABORATORYCLIA [id number] [address] [place] Magnesium SerPl-mCncon 07-24 Magnesium [Mass/Vol] 2.3 mg/dL Normal 1.7-2.3 [facility] Comment on above: Order Comment: Speci men Type: BLOOD SPECIMENOrdering Facility: [facility] Address: [address] [place] [address] Performed By: #### 1 9123-9, PROCAL, 2777-1, 12341-4 ####[facility] LABORATORYCLIA [id number] [place] [address] [place] NURSING PROGon 07-24-2021 NURSING PROG Normal [facility] PROCALCITONIN (LAB)on 2021 Procalcitonin [Mass/Vol] 0.15 ng/mL High <0.09 [facility] Comment on above: Order Comment: Speci men Type: BLOOD SPECIMENOrdering Facility: [facility] Address: [address] [place] [address] Result Comment: For a guided interpretation of test results, please visit the Change in Procalcitonin Calculator, [email or web address]. Performed By: #### 1 9123-9, PROCAL, 2777-1, 85304-3 ####[facility] LABORATORYCLIA [id number] [address] Phosphate SerPl-mCncon 07-24 Phosphate [Mass/Vol] 3.9 mg/dL Normal 2.7-4.8 [facility] Comment on above: Order Comment: Speci men Type: BLOOD SPECIMENOrdering Facility: [facility] Address: [address] [place] [address] Performed By: #### 1 9123-9, PROCAL, 2777-1, 66179-7 ####[facility] LABORATORYCLIA [id number] [address] [place] STREPTOCOCCUS PNEUMONIAE AGo n 07-24-2021 STREPTOCOCCUS PNEUMONIAE AG Normal [facility] Comment on above: Performed By: #### S PNAG ####[facility] LABORATORYCLIA [id number] [address] [place] aPTT PPPon 07-24-2021 aPTT Coag (PPP) [Time] 60.8 s High 23.0-32.4 [facility] Comment on above: Order Comment: Speci men Type: BLOOD SPECIMENOrdering Facility: [facility] Address: [address] [place] [address] Performed By: #### 1 4979-9 ####[facility] LABORATORYCLIA [id number] [address] aPTT Coag (PPP) [Time] 38.2 s High 23.0-32.4 [facility] Comment on above: Order Comment: Speci men Type: BLOOD SPECIMENOrdering Facility: [facility] Address: [address] [place] [address] Performed By: #### 1 4979-9 ####[facility] LABORATORYCLIA [id number] [address] [place] aPTT Coag (PPP) [Time] 35.9 s High 23.0-32.4 [facility] Comment on above: Order Comment: Speci men Type: BLOOD SPECIMENOrdering Facility: [facility] Address: [address] [place] [address] Performed By: #### 1 4979-9 ####[facility]ORATORYCLIA [id number] [address] aPTT Coag (PPP) [Time] 28.8 s Normal 23.0-32.4 [facility] Comment on above: Order Comment: Speci men Type: BLOOD SPECIMENOrdering Facility: [facility] Address: [address] [place] [address] Performed By: #### 1 4979-9 ####[facility]ORATORYCLIA [id number] [address] [place] ALLIED HEALTHon 07-23-2021 ALLIED HEALTH Normal [facility] ALLIED HEALTH Normal [facility] ALLIED HEALTH Normal [facility] ARTERIAL BLOOD GASESon 07-23 Base excess Calc (Bld) [Moles/Vol] 4 mmol/L High 0-2 [facility] Comment on above: Order Comment: Speci men Type: ARTERIAL BLOOD SPECIMENOrdering Facility: [facility] Address: [address] [place] [address] Performed By: #### A LLBG ####[facility] LABORATORYCLIA [id number] [address] Body temperature 100.58 [degF] Normal [facility] Comment on above: Order Comment: Speci men Type: ARTERIAL BLOOD SPECIMENOrdering Facility: [facility] Address: [address] [place] [address] Performed By: #### A LLBG ####[facility] LABORATORYCLIA [id number] [place] [address] [place] CALCIUM IONIZED, PH CORRECTED 1.26 mmol/L Normal 1.08-1.30 [facility] Comment on above: Order Comment: Speci men Type: ARTERIAL BLOOD SPECIMENOrdering Facility: [facility] Address: [address] [place] [address] Performed By: #### A LLBG ####[facility] LABORATORYCLIA [id number] [place] [address] [place] Calcium.ionized (BldV) [Mass/Vol] 1.25 mmol/L Normal 1.08-1.30 [facility] Comment on above: Order Comment: Speci men Type: ARTERIAL BLOOD SPECIMENOrdering Facility: [facility] Address: [address] [place] [address] Performed By: #### A LLBG ####[facility]ORATORYCLIA [id number] [address] [place] Carboxyhemoglobin (BldA) [Mass fraction] 1.2 % Normal 0.0-2.0 [facility] Comment on above: Order Comment: Speci men Type: ARTERIAL BLOOD SPECIMENOrdering Facility: [facility] Address: [address] [place] [address] Result Comment: Carb oxyhemoglobin Reference Range for Smokers: 2.0-8.0% Performed By: #### A LLBG ####[facility] LABORATORYCLIA [id number] [place] [address] [place] CO2 (Bld) [Partial pressure] 46 mm Hg Normal 36-46 [facility] Comment on above: Order Comment: Speci men Type: ARTERIAL BLOOD SPECIMENOrdering Facility: [facility] Address: [address] [address] Performed By: #### A LLBG ####[facility] LABORATORYCLIA [id number] [place] [address] [place] CO2 [Moles/Vol] 27 mmol/L Normal 22-28 [facility] Comment on above: Order Comment: Speci men Type: ARTERIAL BLOOD SPECIMENOrdering Facility: [facility] Address: [address] [place] [address] Performed By: #### A LLBG ####[facility] LABORATORYCLIA [id number] [address] CO2 adjusted to patient's actual temperature (Bld) [Partial pressure] 48 mmHg High 36-46 [facility] Comment on above: Order Comment: Speci men Type: ARTERIAL BLOOD SPECIMENOrdering Facility: [facility] Address: [address] [place] [address] Performed By: #### A LLBG ####[facility] LABORATORYCLIA [id number] [address] [place] Glucose [Mass/Vol] 134 mg/dL High 60-105 [facility] Comment on above: Order Comment: Speci men Type: ARTERIAL BLOOD SPECIMENOrdering Facility: [facility] Address: [address] [place] [address] Performed By: #### A LLBG ####[facility] LABORATORYCLIA [id number] [address] HCO3 (Bld) [Moles/Vol] 29 mmol/L High 22-26 [facility] Comment on above: Order Comment: Speci men Type: ARTERIAL BLOOD SPECIMENOrdering Facility: [facility] Address: [address] [place] [address] Performed By: #### A LLBG ####[facility] LABORATORYCLIA [id number] [address] [place] Hematocrit (Bld) [Volume fraction] 31.4 % Low 39.0-51.0 [facility] Comment on above: Order Comment: Speci men Type: ARTERIAL BLOOD SPECIMENOrdering Facility: [facility] Address: [address] [place] [address] Performed By: #### A LLBG ####[facility]ORATORYCLIA [id number] [address] [place] Hemoglobin (Bld) [Mass/Vol] 10.2 g/dL Low 13.0-17.0 [facility] Comment on above: Order Comment: Speci men Type: ARTERIAL BLOOD SPECIMENOrdering Facility: [facility] Address: [address] [address] Performed By: #### A LLBG ####[facility]ATORYCLIA [id number] [address] Methemoglobin (Bld) [Mass fraction] % Normal 0.0-1.5 [facility] Comment on above: Order Comment: Speci men Type: ARTERIAL BLOOD SPECIMENOrdering Facility: [facility] Address: [address] [address] Performed By: #### A LLBG ####[facility]ATORYCLIA [id number] [address] O2 THERAPY Ventilator Normal [facility] Comment on above: Order Comment: Speci men Type: ARTERIAL BLOOD SPECIMENOrdering Facility: [facility] Address: [address] [place] [address] Performed By: #### A LLBG ####[facility]ATORYCLIA [id number] [address] Oxygen (Bld) [Partial pressure] 113 mm Hg High 85-95 [facility] Comment on above: Order Comment: Speci men Type: ARTERIAL BLOOD SPECIMENOrdering Facility: [facility] Address: [address] [place] [address] Performed By: #### A LLBG ####[facility]ATORYCLIA [id number] [address] Oxygen adjusted to patient's actual temperature (Bld) [Partial pressure] 119 mmHg High 85-95 [facility] Comment on above: Order Comment: Speci men Type: ARTERIAL BLOOD SPECIMENOrdering Facility: [facility] Address: [address] [address] Performed By: #### A LLBG ####[facility]ATORYCLIA [id number] [address] [place] OXYGEN SATURATION, ARTERIAL 98 % Normal 95-98 [facility] Comment on above: Order Comment: Speci men Type: ARTERIAL BLOOD SPECIMENOrdering Facility: [facility] Address: [address] [place] [address] Performed By: #### A LLBG ####[facility]ORATORYCLIA [id number] [address] Oxyhemoglobin (BldA) [Mass fraction] 96 % Normal 95-98 [facility] Comment on above: Order Comment: Speci men Type: ARTERIAL BLOOD SPECIMENOrdering Facility: [facility] Address: [address] [place] [address] Performed By: #### A LLBG ####[facility]ORATORYCLIA [id number] [address] [place] pH (Bld) 7.41 [pH] Normal 7.35-7.45 [facility] Comment on above: Order Comment: Speci men Type: ARTERIAL BLOOD SPECIMENOrdering Facility: [facility] Address: [address] [place] [address] Performed By: #### A LLBG ####[facility]ORATORYCLIA [id number] [address] pH adjusted to patient's actual temperature (Bld) 7.40 Normal 7.35-7.45 [facility] Comment on above: Order Comment: Speci men Type: ARTERIAL BLOOD SPECIMENOrdering Facility: [facility] Address: [address] [place] [address] Performed By: #### A LLBG ####[facility]ORATORYCLIA [id number] [address] [place] Potassium [Moles/Vol] 4.3 mmol/L Normal 3.5-5.0 [facility] Comment on above: Order Comment: Speci men Type: ARTERIAL BLOOD SPECIMENOrdering Facility: [facility] Address: [address] [place] [address] Performed By: #### A LLBG ####[facility]ORATORYCLIA [id number] [address] [place] Sodium [Moles/Vol] 144 mmol/L Normal 136-144 [facility] Comment on above: Order Comment: Speci men Type: ARTERIAL BLOOD SPECIMENOrdering Facility: [facility] Address: [address] [place] [address] Performed By: #### A LLBG ####[facility]ORATORYCLIA [id number] [address] [facility] Bacteria CSF Culton 07-24-19 22 Bacteria identified Cx Nom (CSF) Abnormal [facility] Comment on above: Performed By: #### 6 06-4 ####[facility]ORATORYCLIA [id number] [address] [place] Basic metabolic 2000 panelon 07-23-2021 Anion gap [Moles/Vol] 12 mmol/L Normal 9-18 [facility] Comment on above: Order Comment: Speci men Type: BLOOD SPECIMENOrdering Facility: [facility] Address: [address] [place] [address] Performed By: #### 2 4321-2 ####[facility]ORATORYCLIA [id number] [place] [address] [place] Calcium [Mass/Vol] 9.7 mg/dL Normal 8.5-10.2 [facility] Comment on above: Order Comment: Speci men Type: BLOOD SPECIMENOrdering Facility: [facility] Address: [address] [place] [address] Performed By: #### 2 4321-2 ####[facility]ORATORYCLIA [id number] [place] [address] [place] Chloride [Moles/Vol] 105 mmol/L Normal 97-105 [facility] Comment on above: Order Comment: Speci men Type: BLOOD SPECIMENOrdering Facility: [facility] Address: [address] [place] [address] Performed By: #### 2 4321-2 ####[facility]ORATORYCLIA [id number] [place] [address] [place] CO2 [Moles/Vol] 28 mmol/L Normal 22-30 [facility] Comment on above: Order Comment: Speci men Type: BLOOD SPECIMENOrdering Facility: [facility] Address: [address] [address] Performed By: #### 2 4321-2 ####[facility]ORATORYCLIA [id number] [address] [place] [facility] Creatinine [Mass/Vol] 0.78 mg/dL Normal 0.73-1.22 [facility] Comment on above: Order Comment: Speci men Type: BLOOD SPECIMENOrdering Facility: [facility] Address: [address] [place] [address] Performed By: #### 2 4321-2 ####[facility]ITALCLIA [id number] [address] ESTIMATED GLOMERULAR FILTRATION RATE 97 mL/min/1.73m??? Normal >=60 [facility] Comment on above: Order Comment: Speci men Type: BLOOD SPECIMENOrdering Facility: [facility] Address: [address] [place] [address] Result Comment: Luzmaria mated Glomerular Filtration Rate [...] #### 2 4321-2 ####[facility]ORATORYCLIA [id number] [address] [place] Glucose [Mass/Vol] 127 mg/dL High 74-99 [facility] Comment on above: Order Comment: Speci francia Type: BLOOD SPECIMENOrdering Facility: [facility] Address: [address] [address] Result Comment: The [employer] [place] [employer] (ADA) provides guidance for cutoff [...] Standards of Medical Care in Diabetes 2016, [employer] [place] [employer]. Diabetes Care. 2016.39(Suppl 1). Performed By: #### 2 4321-2 ####[facility]ORATORYCLIA [id number] [place] [address] [place] Potassium [Moles/Vol] 4.3 mmol/L Normal 3.7-5.1 [facility] Comment on above: Order Comment: Shira feldman Type: BLOOD SPECIMENOrdering Facility: [facility] Address: [address] [place] [address] Performed By: #### 2 4321-2 ####[facility]PITALIA [id number] [place] [address] [place] Sodium [Moles/Vol] 145 mmol/L High 136-144 [facility] Comment on above: Order Comment: Shira feldman Type: BLOOD SPECIMENOrdering Facility: [facility] Address: [address] [place] [address] Performed By: #### 2 4321-2 ####[facility] HOSPITALIA [id number] [place] [address] [place] Urea nitrogen [Mass/Vol] 37 mg/dL High 9-24 [facility] Comment on above: Order Comment: Shira feldman Type: BLOOD SPECIMENOrdering Facility: [facility] Address: [address] [place] [address] Performed By: #### 2 4321-2 ####[facility]ORATORYCLIA [id number] [place] [address] [place] C diff Tox gens Stl Ql MEGAN+p robeon 07-23-2021 C. difficile toxin genes MEGAN+probe Ql (Stl) Negative Normal Negative for C. difficile toxin by PCR [facility] Comment on above: Order Comment: Speci men Type: STOOL SPECIMENOrdering Facility: [facility] Address: [address] [place] [address] Performed By: #### 5 4067-4 ####[facility]ORATORYCLIA [id number] [address] [place] [facility] CBC W Auto Differential pane l (Bld)on 07-23-2021 Basophils (Bld) [#/Vol] 0.07 10*3/uL Normal <0.11 [facility] Comment on above: Order Comment: Speci men Type: BLOOD SPECIMENOrdering Facility: [facility] Address: [address] [place] [address] Performed By: #### 5 7021-8 ####[facility]ORATORYCLIA [id number] [address] [place] Basophils/100 WBC (Bld) 0.5 % Normal [facility] Comment on above: Order Comment: Speci men Type: BLOOD SPECIMENOrdering Facility: [facility] Address: [address] [place] [address] Performed By: #### 5 7021-8 ####[facility]ORATORYCLIA [id number] [address] Differential cell count method Nom (Bld) Auto Normal [facility] Comment on above: Order Comment: Speci men Type: BLOOD SPECIMENOrdering Facility: [facility] Address: [address] [place] [address] Performed By: #### 5 7021-8 ####[facility]ORATORYCLIA [id number] [place] [address] [place] Eosinophils (Bld) [#/Vol] 10*3/uL Normal <0.46 [facility] Comment on above: Order Comment: Speci men Type: BLOOD SPECIMENOrdering Facility: [facility] Address: [address] [place] [address] Performed By: #### 5 7021-8 ####[facility]ORATORYCLIA [id number] [address] [place] Eosinophils/100 WBC (Bld) 0.2 % Normal [facility] Comment on above: Order Comment: Speci men Type: BLOOD SPECIMENOrdering Facility: [facility] Address: [address] [place] [address] Performed By: #### 5 7021-8 ####[facility]ORATORYCLIA [id number] [address] Erythrocyte distribution width (RBC) [Ratio] 16.7 % High 11.5-15.0 [facility] Comment on above: Order Comment: Speci men Type: BLOOD SPECIMENOrdering Facility: [facility] Address: [address] [place] [address] Performed By: #### 5 7021-8 ####[facility]ORATORYCLIA [id number] [address] Hematocrit (Bld) [Volume fraction] 32.8 % Low 39.0-51.0 [facility] Comment on above: Order Comment: Speci men Type: BLOOD SPECIMENOrdering Facility: [facility] Address: [address] [place] [address] Performed By: #### 5 7021-8 ####[facility]ORATORYCLIA [id number] [address] [place] Hemoglobin (Bld) [Mass/Vol] 9.7 g/dL Low 13.0-17.0 [facility] Comment on above: Order Comment: Speci men Type: BLOOD SPECIMENOrdering Facility: [facility] Address: [address] [place] [address] Performed By: #### 5 7021-8 ####[facility]ORATORYCLIA [id number] [address] IMMATURE GRAN % 0.7 % Normal [facility] Comment on above: Order Comment: Speci men Type: BLOOD SPECIMENOrdering Facility: [facility] Address: [address] [address] Performed By: #### 5 7021-8 ####[facility]ORATORYCLIA [id number] [address] IMMATURE GRAN ABS 0.09 k/uL Normal <0.10 [facility] Comment on above: Order Comment: Speci men Type: BLOOD SPECIMENOrdering Facility: [facility] Address: [address] [place] [address] Performed By: #### 5 7021-8 ####[facility]ORATORYCLIA [id number] [address] Lymphocytes (Bld) [#/Vol] 1.94 10*3/uL Normal 1.00-4.00 [facility] Comment on above: Order Comment: Speci men Type: BLOOD SPECIMENOrdering Facility: [facility] Address: [address] [place] [address] Performed By: #### 5 7021-8 ####[facility]ORATORYCLIA [id number] [address] Lymphocytes/100 WBC (Bld) 14.6 % Normal [facility] Comment on above: Order Comment: Speci men Type: BLOOD SPECIMENOrdering Facility: [facility] Address: [address] [place] [address] Performed By: #### 5 7021-8 ####[facility]ORATORYCLIA [id number] [address] MCH (RBC) [Entitic mass] 27.2 pg Normal 26.0-34.0 [facility] Comment on above: Order Comment: Speci men Type: BLOOD SPECIMENOrdering Facility: [facility] Address: [address] [place] [address] Performed By: #### 5 7021-8 ####[facility]ORATORYCLIA [id number] [address] MCHC (RBC) [Mass/Vol] 29.6 g/dL Low 30.5-36.0 [facility] Comment on above: Order Comment: Speci men Type: BLOOD SPECIMENOrdering Facility: [facility] Address: [address] [place] [address] Performed By: #### 5 7021-8 ####[facility]ORATORYCLIA [id number] [address] [place] MCV (RBC) [Entitic vol] 92.1 fL Normal 80.0-100.0 [facility] Comment on above: Order Comment: Speci men Type: BLOOD SPECIMENOrdering Facility: [facility] Address: [address] [place] [address] Performed By: #### 5 7021-8 ####[facility]ORATORYCLIA [id number] [address] [place] Monocytes (Bld) [#/Vol] 0.74 10*3/uL Normal <0.87 [facility] Comment on above: Order Comment: Speci men Type: BLOOD SPECIMENOrdering Facility: [facility] Address: [address] [place] [address] Performed By: #### 5 7021-8 ####[facility]ORATORYCLIA [id number] [address] [place] Monocytes/100 WBC (Bld) 5.6 % Normal [facility] Comment on above: Order Comment: Speci men Type: BLOOD SPECIMENOrdering Facility: [facility] Address: [address] [place] [address] Performed By: #### 5 7021-8 ####[facility]ORATORYCLIA [id number] [address] [place] Neutrophils (Bld) [#/Vol] 10.43 10*3/uL High 1.45-7.50 [facility] Comment on above: Order Comment: Speci men Type: BLOOD SPECIMENOrdering Facility: [facility] Address: [address] [place] [address] Performed By: #### 5 7021-8 ####[facility]ATORYCLIA [id number] [address] [place] Neutrophils/100 WBC (Bld) 78.4 % Normal [facility] Comment on above: Order Comment: Speci men Type: BLOOD SPECIMENOrdering Facility: [facility] Address: [address] [address] Performed By: #### 5 7021-8 ####[facility]ATORYCLIA [id number] [address] [place] Nucleated RBC (Bld) [#/Vol] 10*3/uL Normal <0.01 [facility] Comment on above: Order Comment: Speci men Type: BLOOD SPECIMENOrdering Facility: [facility] Address: [address] [place] [address] Performed By: #### 5 7021-8 ####[facility]ATORYCLIA [id number] [address] Nucleated RBC/100 WBC (Bld) [Ratio] 0.0 /100 WBC Normal [facility] Comment on above: Order Comment: Speci men Type: BLOOD SPECIMENOrdering Facility: [facility] Address: [address] [place] [address] Performed By: #### 5 7021-8 ####[facility]ATORYCLIA [id number] [address] [place] Platelet mean volume (Bld) [Entitic vol] 11.0 fL Normal 9.0-12.7 [facility] Comment on above: Order Comment: Speci men Type: BLOOD SPECIMENOrdering Facility: [facility] Address: [address] [address] Performed By: #### 5 7021-8 ####[facility]ATORYCLIA [id number] [address] [place] Platelets (Bld) [#/Vol] 381 10*3/uL Normal 150-400 [facility] Comment on above: Order Comment: Speci men Type: BLOOD SPECIMENOrdering Facility: [facility] Address: [address] [place], [place] [address] Performed By: #### 5 7021-8 ####[facility]ORATORYCLIA [id number] [address] [place] RBC (Bld) [#/Vol] 3.56 10*6/uL Low 4.20-6.00 [facility] Comment on above: Order Comment: Speci men Type: BLOOD SPECIMENOrdering Facility: [facility] Address: [address] [place] [address] Performed By: #### 5 7021-8 ####[facility]ORATORYCLIA [id number] [address] [place] [facility] WBC (Bld) [#/Vol] 13.29 10*3/uL High 3.70-11.00 [facility] Comment on above: Order Comment: Speci men Type: BLOOD SPECIMENOrdering Facility: [facility] Address: [address] [place] [address] Performed By: #### 5 7021-8 ####[facility]ORATORYCLIA [id number] [address] [facility] CONSULT PROGon 07-23-2021 CONSULT PROG Normal [facility] CONSULT PROG Normal [facility] CSF MANUAL DIFFon 07-23-2021 DIF TTL, CSF 100 cells counted Normal [facility] Comment on above: Order Comment: Speci men Type: CEREBROSPINAL FLUIDOrdering Facility: [facility] Address: [address] [place] [address] Performed By: #### L [id number], [id number], 80407-7 ####[facility]ORATORYCLIA [id number] [address] [place] LYMPH%, CSF 2 % Low 50-90 [facility] Comment on above: Order Comment: Speci men Type: CEREBROSPINAL FLUIDOrdering Facility: [facility] Address: [address] [place] [address] Performed By: #### L [id number], [id number], 62419-8 ####[facility]ATORYCLIA [id number] [address] [place] MONO%, CSF 9 % Low 10-50 [facility] Comment on above: Order Comment: Speci men Type: CEREBROSPINAL FLUIDOrdering Facility: [facility] Address: [address] [place] [address] Performed By: #### L [id number], [id number], 95843-1 ####[facility]ATORYCLIA [id number] [address] [place] NEUT%, CSF 89 % High 0-3 [facility] Comment on above: Order Comment: Speci men Type: CEREBROSPINAL FLUIDOrdering Facility: [facility] Address: [address] [place] [address] Performed By: #### L [id number], [id number], 25201-2 ####[facility]ORATORYCLIA [id number] [address] CSF PATHOLOGIST INTERP (LAB REFLEX ORDER-NO BILL)on 07-23-2021 CSF STAFF REVIEW Negative for maligna nt cells. Numerous bacterial organisms present, cocci in pairs and chains. Recommend correlation with CSF culture results. Normal [facility] Comment on above: Order Comment: Speci men Type: CEREBROSPINAL FLUIDOrdering Facility: [facility] Address: [address] [place] [address] Performed By: #### L [id number], [id number], 84250-4 ####[facility]ORATORYCLIA [id number] [address] Pathologist name Reviewed by Amador Stevens MD [facility] Comment on above: Order Comment: Speci men Type: CEREBROSPINAL FLUIDOrdering Facility: [facility] Address: [address] [place] [address] Performed By: #### L [id number], [id number], 26114-8 ####[facility]ATORYCLIA [id number] [address] [place] CT BRAIN WO IVCONon 03-19-[address] BRAIN WO IVCON Normal [facility] Cell count panel (CSF)on Clarity (CSF) Clear Normal Clear [facility] Comment on above: Order Comment: Speci men Type: CEREBROSPINAL FLUIDOrdering Facility: [facility] Address: [address] [place] [address] Performed By: #### L [id number], [id number], 36775-8 ####[facility]ORYCLIA [id number] [address] Clarity (Unsp spec) Not Indicated Normal Clear [facility] Comment on above: Order Comment: Speci men Type: CEREBROSPINAL FLUIDOrdering Facility: [facility] Address: [address] [place] [address] Performed By: #### L [id number], [id number], 78722-9 ####[facility]ATORYCLIA [id number] [address] Color (CSF) Colorless Normal Colorless [facility] Comment on above: Order Comment: Speci men Type: CEREBROSPINAL FLUIDOrdering Facility: [facility] Address: [address] [place] [address] Performed By: #### L [id number], [id number], 07731-3 ####[facility]ORYCLIA [id number] [address] Color (Spun CSF) Not Indicated Normal Colorless [facility] Comment on above: Order Comment: Speci men Type: CEREBROSPINAL FLUIDOrdering Facility: [facility] Address: [address] [place] [address] Performed By: #### L [id number], [id number], 21795-7 ####[facility]ORYCLIA [id number] [address] CSF TUBE NUMBER Sterile Container Normal [facility] Comment on above: Order Comment: Speci men Type: CEREBROSPINAL FLUIDOrdering Facility: [facility] Address: [address] [place] [address] Performed By: #### L [id number], [id number], 18342-8 ####[facility] LABORATORYCLIA [id number] [address] RBC Manual cnt (CSF) [#/Vol] 7 cells/uL High 0-5 [facility] Comment on above: Order Comment: Speci men Type: CEREBROSPINAL FLUIDOrdering Facility: [facility] Address: [address] [place] [address] Performed By: #### L [id number], [id number], 47471-1 ####[facility] LABORATORYCLIA [id number] [address] WBC Manual cnt (CSF) [#/Vol] 193 cells/uL High 0-5 [facility] Comment on above: Order Comment: Speci men Type: CEREBROSPINAL FLUIDOrdering Facility: [facility] Address: [address] [place] [address] Performed By: #### L [id number], [id number], 99470-5 ####[facility]ITALCLIA [id number] [address] Glucose CSF-mCncon 2 Glucose (CSF) [Mass/Vol] 81 mg/dL High 40-70 [facility] Comment on above: Order Comment: Speci men Type: CEREBROSPINAL FLUIDOrdering Facility: [facility] Address: [address] [place] [address] Result Comment: Lumb ar CSF glucose values of healthy patients are approximately 60% of the plasma values and must always be compared with a concurrently measured plasma value for adequate clinical interpretation.References: 1. Glucose HK (GLUC3) [package insert V 12.0 [place]]. [employer], [place], [place]. September 2015. 2. Teresa H., He, H. (2015). Chapter 7: Glucose and Lactate. Marianela Rothman.(eds.), Cerebrospinal Fluid in Clinical Neurology. [place]: [employer]. Performed By: #### 2 342-4, 2880-3 ####[facility] LABORATORYCLIA [id number] [address] NURSING PROGon 07-23-2021 NURSING PROG Normal [facility] NURSING PROG Normal [facility] Prot CSF-mCncon 07-23-2021 Protein (CSF) [Mass/Vol] 68 mg/dL High 15-45 [facility] Comment on above: Order Comment: Speci men Type: CEREBROSPINAL FLUIDOrdering Facility: [facility] Address: [address] [place] [address] Performed By: #### 2 342-4, 2880-3 ####[facility] LABORATORYCLIA [id number] [address] Urinalysis complete panel (U )on 07-23-2021 Bilirubin Ql (U) Negative Normal Negative [facility] Comment on above: Order Comment: Speci men Type: URINE SPECIMENOrdering Facility: [facility] Address: [address] [place] [address] Performed By: #### 2 4356-8 ####[facility] LABORATORYCLIA [id number] [address] [place] Clarity (Unsp spec) Clear Normal Clear [facility] Comment on above: Order Comment: Speci men Type: URINE SPECIMENOrdering Facility: [facility] Address: [address] [place] [address] Performed By: #### 2 4356-8 ####[facility]ORATORYCLIA [id number] [address] Color (U) Light Yellow Normal yellow [facility] Comment on above: Order Comment: Speci men Type: URINE SPECIMENOrdering Facility: [facility] Address: [address] [place] [address] Performed By: #### 2 4356-8 ####[facility] LABORATORYCLIA [id number] [address] Glucose Test strip (U) [Mass/Vol] Negative Normal Negative [facility] Comment on above: Order Comment: Speci men Type: URINE SPECIMENOrdering Facility: [facility] Address: [address] [place], [place] [address] Performed By: #### 2 4356-8 ####[facility] LABORATORYCLIA [id number] [address] Hemoglobin Ql (U) Negative Normal Negative [facility] Comment on above: Order Comment: Speci men Type: URINE SPECIMENOrdering Facility: [facility] Address: [address] [address] Performed By: #### 2 4356-8 ####[facility] LABORATORYCLIA [id number] [address] [place] [facility] Ketones Ql (U) Negative Normal Negative [facility] Comment on above: Order Comment: Speci men Type: URINE SPECIMENOrdering Facility: [facility] Address: [facility] [place] [address] Performed By: #### 2 4356-8 ####[facility]ORATORYCLIA [id number] [address] Leukocyte esterase Test strip Ql (U) Negative Normal Negative [facility] Comment on above: Order Comment: Speci men Type: URINE SPECIMENOrdering Facility: [facility] Address: [address] [address] Performed By: #### 2 4356-8 ####[facility]ORATORYCLIA [id number] [address] Nitrite Ql (U) Negative Normal Negative [facility] Comment on above: Order Comment: Speci men Type: URINE SPECIMENOrdering Facility: [facility] Address: [address] [address] Performed By: #### 2 4356-8 ####[facility]ORATORYCLIA [id number] [address] pH (U) 6.0 [pH] Normal 5.0-8.0 [facility] Comment on above: Order Comment: Speci men Type: URINE SPECIMENOrdering Facility: [facility] Address: [address] [address] Performed By: #### 2 4356-8 ####[facility]ORATORYCLIA [id number] [address] Protein (U) [Mass/Vol] 1+ Abnormal Negative [facility] Comment on above: Order Comment: Speci men Type: URINE SPECIMENOrdering Facility: [facility] Address: [address] [place] [address] Performed By: #### 2 4356-8 ####[facility]ORATORYCLIA [id number] [address] RBC LM.HPF (Urine sed) [#/Area] 0-3 /HPF Normal 0-3 /HPF [facility] Comment on above: Order Comment: Speci men Type: URINE SPECIMENOrdering Facility: [facility] Address: [address] [place] [address] Performed By: #### 2 4356-8 ####[facility]ORATORYCLIA [id number] [address] Specific gravity (U) [Rel density] 1.018 Normal 1.005-1.030 [facility] Comment on above: Order Comment: Speci men Type: URINE SPECIMENOrdering Facility: [facility] Address: [address] [place] [address] Performed By: #### 2 4356-8 ####[facility]ORATORYCLIA [id number] [address] Urobilinogen Ql (U) Normal Normal Negative [facility] Comment on above: Order Comment: Speci men Type: URINE SPECIMENOrdering Facility: [facility] Address: [address] [place] [address] Performed By: #### 2 4356-8 ####[facility]ORATORYCLIA [id number] [address] WBC LM.HPF (Urine sed) [#/Area] 0-5 /HPF Normal 0-5 /HPF [facility] Comment on above: Order Comment: Speci men Type: URINE SPECIMENOrdering Facility: [facility] Address: [address] [place] [address] Performed By: #### 2 4356-8 ####[facility] LABORATORYCLIA [id number] [address] Vancomycin random [Mass/Vol] on 07-23-2021 Vancomycin [Mass/Vol] 12.9 ug/mL Normal 10.0-20.0 [facility] Comment on above: Order Comment: Speci men Type: BLOOD SPECIMENOrdering Facility: [facility] Address: [address] [place] [address] Result Comment: Refe rence ranges and high/low indicator flags are provided as general guidelines only. The treating physician must determine appropriate target levels/dosing based on the specific clinical situation. Performed By: #### 4 091-5 ####[facility] LABORATORYCLIA [id number] [address] [place] [facility] XR CHEST 1V FRONTALon 2021 XR CHEST 1V FRONTAL Normal [facility] XR CHEST 1V FRONTAL Normal [facility] aPTT PPPon 07-23-2021 aPTT Coag (PPP) [Time] 32.3 s Normal 23.0-32.4 [facility] Comment on above: Order Comment: Speci men Type: BLOOD SPECIMENOrdering Facility: [facility] Address: [address] [place] [address] Performed By: #### 1 4979-9 ####[facility] LABORATORYCLIA [id number] [address] [place] [facility] aPTT Coag (PPP) [Time] 57.9 s High 23.0-32.4 [facility] Comment on above: Order Comment: Speci men Type: BLOOD SPECIMENOrdering Facility: [facility] Address: [address] [place] [address] Performed By: #### 1 4979-9 ####[facility]ORATORYCLIA [id number] [address] aPTT Coag (PPP) [Time] 46.3 s High 23.0-32.4 [facility] Comment on above: Order Comment: Speci men Type: BLOOD SPECIMENOrdering Facility: [facility] Address: [address] [place] [address] Performed By: #### 1 4979-9 ####[facility]ORATORYCLIA [id number] [place] [address] [place] Basic metabolic 2000 panelon 07-22-2021 Anion gap [Moles/Vol] 8 mmol/L Low -18 [facility] Comment on above: Order Comment: Speci men Type: BLOOD SPECIMENOrdering Facility: [facility] Address: [address] [place] [address] Performed By: #### 2 4321-2 ####[facility] LABORATORYCLIA [id number] [place] [address] [place] Calcium [Mass/Vol] 9.5 mg/dL Normal 8.5-10.2 [facility] Comment on above: Order Comment: Speci men Type: BLOOD SPECIMENOrdering Facility: [facility] Address: [address] [place] [address] Performed By: #### 2 4321-2 ####[facility]ORATORYCLIA [id number] [address] [place] Chloride [Moles/Vol] 105 mmol/L Normal 97-105 [facility] Comment on above: Order Comment: Speci men Type: BLOOD SPECIMENOrdering Facility: [facility] Address: [address] [place] [address] Performed By: #### 2 4321-2 ####[facility]ORATORYCLIA [id number] [place] [address] [place] CO2 [Moles/Vol] 32 mmol/L High 22-30 [facility] Comment on above: Order Comment: Speci men Type: BLOOD SPECIMENOrdering Facility: [facility] Address: [address] [place] [address] Performed By: #### 2 4321-2 ####[facility]ORATORYCLIA [id number] [address] [place] [facility] Creatinine [Mass/Vol] 0.75 mg/dL Normal 0.73-1.22 [facility] Comment on above: Order Comment: Johncara feldman Type: BLOOD SPECIMENOrdering Facility: [facility] Address: [address] [place] [address] Performed By: #### 2 4321-2 ####[facility] LABORATORYCLIA [id number] [address] ESTIMATED GLOMERULAR FILTRATION RATE 98 mL/min/1.73m??? Normal >=60 [facility] Comment on above: Order Comment: Shira feldman Type: BLOOD SPECIMENOrdering Facility: [facility] Address: [address] [place] [address] Result Comment: Luzmaria mated Glomerular Filtration Rate [...] By: #### 2 4321-2 ####[facility]PITALIA [id number] [address] Glucose [Mass/Vol] 128 mg/dL High 74-99 [facility] Comment on above: Order Comment: Shira francia Type: BLOOD SPECIMENOrdering Facility: [facility] Address: [address] [place] [address] Result Comment: The [place] [employer] (ADA) provides guidance for cutoff [...] Standards of Medical Care in Diabetes 2016, [employer] [place] [employer]. Diabetes Care. 2016.39(Suppl 1). Performed By: #### 2 4321-2 ####[facility] LABORATORYCLIA [id number] [address] [place] [facility] Potassium [Moles/Vol] 3.7 mmol/L Normal 3.7-5.1 [facility] Comment on above: Order Comment: Speci men Type: BLOOD SPECIMENOrdering Facility: [facility] Address: [address] [place] [address] Performed By: #### 2 4321-2 ####[facility]ORATORYCLIA [id number] [address] Sodium [Moles/Vol] 145 mmol/L High 136-144 [facility] Comment on above: Order Comment: Speci men Type: BLOOD SPECIMENOrdering Facility: [facility] Address: [address] [place] [address] Performed By: #### 2 4321-2 ####[facility] LABORATORYCLIA [id number] [address] Urea nitrogen [Mass/Vol] 39 mg/dL High 9-24 [facility] Comment on above: Order Comment: Speci men Type: BLOOD SPECIMENOrdering Facility: [facility] Address: [address] [place] [address] Performed By: #### 2 4321-2 ####[facility] LABORATORYCLIA [id number] [address] [place] CASE MANAGEMon 07-22-2021 CASE MANAGEM Normal [facility] CBC W Auto Differential pane l (Bld)on 07-22-2021 Basophils (Bld) [#/Vol] 0.06 10*3/uL Normal <0.11 [facility] Comment on above: Order Comment: Speci men Type: BLOOD SPECIMENOrdering Facility: [facility] Address: [address] [place] [address] Performed By: #### 5 7021-8 ####[facility]ORATORYCLIA [id number] [address] STATES [facility] Basophils/100 WBC (Bld) 0.5 % Normal [facility] Comment on above: Order Comment: Speci men Type: BLOOD SPECIMENOrdering Facility: [facility] Address: [address] [place] [address] Performed By: #### 5 7021-8 ####[facility]ORATORYCLIA [id number] [address] [place] Differential cell count method Nom (Bld) Auto Normal [facility] Comment on above: Order Comment: Speci men Type: BLOOD SPECIMENOrdering Facility: [facility] Address: [address] [place] [address] Performed By: #### 5 7021-8 ####[facility] LABORATORYCLIA [id number] [address] [place] Eosinophils (Bld) [#/Vol] 0.44 10*3/uL Normal <0.46 [facility] Comment on above: Order Comment: Speci men Type: BLOOD SPECIMENOrdering Facility: [facility] Address: [address] [place] [address] Performed By: #### 5 7021-8 ####[facility]ORATORYCLIA [id number] [address] Eosinophils/100 WBC (Bld) 3.9 % Normal [facility] Comment on above: Order Comment: Speci men Type: BLOOD SPECIMENOrdering Facility: [facility] Address: [address] [place] [address] Performed By: #### 5 7021-8 ####[facility]ORATORYCLIA [id number] [address] [place] Erythrocyte distribution width (RBC) [Ratio] 17.0 % High 11.5-15.0 [facility] Comment on above: Order Comment: Speci men Type: BLOOD SPECIMENOrdering Facility: [facility] Address: [address] [address] Performed By: #### 5 7021-8 ####[facility] LABORATORYCLIA [id number] [address] Hematocrit (Bld) [Volume fraction] 32.0 % Low 39.0-51.0 [facility] Comment on above: Order Comment: Speci men Type: BLOOD SPECIMENOrdering Facility: [facility] Address: [address] [place] [address] Performed By: #### 5 7021-8 ####[facility]ORATORYCLIA [id number] [address] Hemoglobin (Bld) [Mass/Vol] 9.3 g/dL Low 13.0-17.0 [facility] Comment on above: Order Comment: Speci men Type: BLOOD SPECIMENOrdering Facility: [facility] Address: [address] [place] [address] Performed By: #### 5 7021-8 ####[facility]ORATORYCLIA [id number] [address] IMMATURE GRAN % 0.5 % Normal [facility] Comment on above: Order Comment: Speci men Type: BLOOD SPECIMENOrdering Facility: [facility] Address: [address] [place] [address] Performed By: #### 5 7021-8 ####[facility] LABORATORYCLIA [id number] [address] IMMATURE GRAN ABS 0.06 k/uL Normal <0.10 [facility] Comment on above: Order Comment: Speci men Type: BLOOD SPECIMENOrdering Facility: [facility] Address: [address] [place] [address] Performed By: #### 5 7021-8 ####[facility] LABORATORYCLIA [id number] [address] OF [facility] Lymphocytes (Bld) [#/Vol] 1.83 10*3/uL Normal 1.00-4.00 [facility] Comment on above: Order Comment: Speci men Type: BLOOD SPECIMENOrdering Facility: [facility] Address: [address] [place] [address] Performed By: #### 5 7021-8 ####[facility]ORATORYCLIA [id number] [address] Lymphocytes/100 WBC (Bld) 16.1 % Normal [facility] Comment on above: Order Comment: Speci men Type: BLOOD SPECIMENOrdering Facility: [facility] Address: [address] [place] [address] Performed By: #### 5 7021-8 ####[facility]ORATORYCLIA [id number] [address] MCH (RBC) [Entitic mass] 27.0 pg Normal 26.0-34.0 [facility] Comment on above: Order Comment: Speci men Type: BLOOD SPECIMENOrdering Facility: [facility] Address: [address] [place] [address] Performed By: #### 5 7021-8 ####[facility] LABORATORYCLIA [id number] [address] [place] [facility] MCHC (RBC) [Mass/Vol] 29.1 g/dL Low 30.5-36.0 [facility] Comment on above: Order Comment: Speci men Type: BLOOD SPECIMENOrdering Facility: [facility] Address: [address] [place] [address] Performed By: #### 5 7021-8 ####[facility] LABORATORYCLIA [id number] [address] [place] [facility] MCV (RBC) [Entitic vol] 92.8 fL Normal 80.0-100.0 [facility] Comment on above: Order Comment: Speci men Type: BLOOD SPECIMENOrdering Facility: [facility] Address: [address] [place] [address] Performed By: #### 5 7021-8 ####[facility]ORATORYCLIA [id number] [address] [place] Monocytes (Bld) [#/Vol] 0.87 10*3/uL High <0.87 [facility] Comment on above: Order Comment: Speci men Type: BLOOD SPECIMENOrdering Facility: [facility] Address: [address] [place] [address] Performed By: #### 5 7021-8 ####[facility]ORATORYCLIA [id number] [address] [place] Monocytes/100 WBC (Bld) 7.6 % Normal [facility] Comment on above: Order Comment: Speci men Type: BLOOD SPECIMENOrdering Facility: [facility] Address: [address] [place] [address] Performed By: #### 5 7021-8 ####[facility]ORATORYCLIA [id number] [address] [place] Neutrophils (Bld) [#/Vol] 8.12 10*3/uL High 1.45-7.50 [facility] Comment on above: Order Comment: Speci men Type: BLOOD SPECIMENOrdering Facility: [facility] Address: [address] [place] [address] Performed By: #### 5 7021-8 ####[facility]ORATORYCLIA [id number] [address] [place] Neutrophils/100 WBC (Bld) 71.4 % Normal [facility] Comment on above: Order Comment: Speci men Type: BLOOD SPECIMENOrdering Facility: [facility] Address: [address] [place] [address] Performed By: #### 5 7021-8 ####[facility]ORATORYCLIA [id number] [address] [place] Nucleated RBC (Bld) [#/Vol] 10*3/uL Normal <0.01 [facility] Comment on above: Order Comment: Speci men Type: BLOOD SPECIMENOrdering Facility: [facility] Address: [address] [place] [address] Performed By: #### 5 7021-8 ####[facility]ORATORYCLIA [id number] [address] [place] Nucleated RBC/100 WBC (Bld) [Ratio] 0.0 /100 WBC Normal [facility] Comment on above: Order Comment: Speci men Type: BLOOD SPECIMENOrdering Facility: [facility] Address: [address] [place] [address] Performed By: #### 5 7021-8 ####[facility]ORATORYCLIA [id number] [address] [place] Platelet mean volume (Bld) [Entitic vol] 10.8 fL Normal 9.0-12.7 [facility] Comment on above: Order Comment: Speci men Type: BLOOD SPECIMENOrdering Facility: [facility] Address: [address] [place] [address] Performed By: #### 5 7021-8 ####[facility] LABORATORYCLIA [id number] [address] [place] Platelets (Bld) [#/Vol] 362 10*3/uL Normal 150-400 [facility] Comment on above: Order Comment: Speci men Type: BLOOD SPECIMENOrdering Facility: [facility] Address: [address] [place] [address] Performed By: #### 5 7021-8 ####[facility]ORATORYCLIA [id number] [address] [place] RBC (Bld) [#/Vol] 3.45 10*6/uL Low 4.20-6.00 [facility] Comment on above: Order Comment: Speci men Type: BLOOD SPECIMENOrdering Facility: [facility] Address: [address] [place] [address] Performed By: #### 5 7021-8 ####[facility]ORATORYCLIA [id number] [address] [place] WBC (Bld) [#/Vol] 11.38 10*3/uL High 3.70-11.00 [facility] Comment on above: Order Comment: Speci men Type: BLOOD SPECIMENOrdering Facility: [facility] Address: [address] [place] [address] Performed By: #### 5 7021-8 ####[facility]ORATORYCLIA [id number] [address] [place] Magnesium SerPl-mCncon 07-22 Magnesium [Mass/Vol] 2.3 mg/dL Normal 1.7-2.3 [facility] Comment on above: Order Comment: Speci men Type: BLOOD SPECIMENOrdering Facility: [facility] Address: [address] [place] [address] Performed By: #### 1 9123-9, 2777-1, 01500-1 ####[facility]ORATORYCLIA [id number] [address] [place] NT-proBNP SerPl-ncon 07-22 Natriuretic peptide.B prohormone N-Terminal [Mass/Vol] 328 pg/mL High <125 [facility] Comment on above: Order Comment: Speci men Type: BLOOD SPECIMENOrdering Facility: [facility] Address: [address] [place] [address] Performed By: #### 1 9123-9, 2777-1, 04223-5 ####[facility]ORATORYCLIA [id number] [address] [place] NURSING PROGon 07-22-2021 NURSING PROG Normal [facility] NUTRITIONon 07-22-2021 NUTRITION Normal [facility] Phosphate SerPl-mCncon 07-22 Phosphate [Mass/Vol] 3.5 mg/dL Normal 2.7-4.8 [facility] Comment on above: Order Comment: Speci men Type: BLOOD SPECIMENOrdering Facility: [facility] Address: [address] [place] [address] Performed By: #### 1 9123-9, 2777-1, 26770-2 ####[facility]ORATORYCLIA [id number] [address] [place] THERAPY NTon 07-22-2021 THERAPY NT Normal [facility] THERAPY NT Normal [facility] aPTT PPPon 07-22-2021 aPTT Coag (PPP) [Time] 50.1 s High 23.0-32.4 [facility] Comment on above: Order Comment: Speci men Type: BLOOD SPECIMENOrdering Facility: [facility] Address: [address] [place] [address] Performed By: #### 1 4979-9 ####[facility]ORATORYCLIA [id number] [address] [place] [facility] ALLIED HEALTHon 07-21-2021 ALLIED HEALTH Normal [facility] Bacteria Spec Resp Culton Bacteria identified Respiratory culture Nom (Unsp spec) Abnormal [facility] Comment on above: Performed By: #### 3 2355-0 ####[facility] LABORATORYCLIA [id number] [place] [address] [place] Basic metabolic 2000 panelon 07-21-2021 Anion gap [Moles/Vol] 9 mmol/L Normal 9-18 [facility] Comment on above: Order Comment: Speci men Type: BLOOD SPECIMENOrdering Facility: [facility] Address: [address] [place] [address] Performed By: #### 1 9123-9, 2777-1, 98268-2 ####[facility] LABORATORYCLIA [id number] [address] [place] Calcium [Mass/Vol] 9.9 mg/dL Normal 8.5-10.2 [facility] Comment on above: Order Comment: Speci men Type: BLOOD SPECIMENOrdering Facility: [facility] Address: [address] [place] [address] Performed By: #### 1 9123-9, 2777-1, 73975-9 ####[facility] LABORATORYCLIA [id number] [place] [address] [place] Chloride [Moles/Vol] 103 mmol/L Normal 97-105 [facility] Comment on above: Order Comment: Speci men Type: BLOOD SPECIMENOrdering Facility: [facility] Address: [address] [place] [address] Performed By: #### 1 9123-9, 2777, 81430-4 ####[facility] LABORATORYCLIA [id number] [address] [place] CO2 [Moles/Vol] 33 mmol/L High 22-30 [facility] Comment on above: Order Comment: Speci men Type: BLOOD SPECIMENOrdering Facility: [facility] Address: [address] [place] [address] Performed By: #### 1 9123-9, 27711-04, 02037-6 ####[facility] LABORATORYCLIA [id number] [address] STATES OF [facility] Creatinine [Mass/Vol] 0.80 mg/dL Normal 0.73-1.22 [facility] Comment on above: Order Comment: Speci men Type: BLOOD SPECIMENOrdering Facility: [facility] Address: [address] [place] [address] Performed By: #### 1 9123-9, 27711-04, 59445-1 ####[facility] LABORATORYCLIA [id number] [address] ESTIMATED GLOMERULAR FILTRATION RATE 96 mL/min/1.73m??? Normal >=60 [facility] Comment on above: Order Comment: Speci men Type: BLOOD SPECIMENOrdering Facility: [facility] Address: [address] [place] [address] Result Comment: Luzmaria mated Glomerular Filtration Rate [...] GFR. Performed By: #### 1 9123-9, 2777-, 43122-5 ####[facility]ORATORYCLIA [id number] [place] [address] [place] Glucose [Mass/Vol] 148 mg/dL High 74-99 [facility] Comment on above: Order Comment: Speci men Type: BLOOD SPECIMENOrdering Facility: [facility] Address: [address] [place] [address] Result Comment: The [employer] [place] [employer] (ADA) provides guidance for cutoff [...] Standards of Medical Care in Diabetes 2016, [employer] [place] [employer]. Diabetes Care. 2016.39(Suppl 1). Performed By: #### 1 9123-9, 2777-, 30349-1 ####[facility] LABORATORYCLIA [id number] [place] [address] [place] Potassium [Moles/Vol] 4.1 mmol/L Normal 3.7-5.1 [facility] Comment on above: Order Comment: Speci men Type: BLOOD SPECIMENOrdering Facility: [facility] Address: [address] [place] [address] Performed By: #### 1 9123-9, 2777-1, 84057-2 ####[facility]ORATORYCLIA [id number] [place] [address] [place] Sodium [Moles/Vol] 145 mmol/L High 136-144 [facility] Comment on above: Order Comment: Speci men Type: BLOOD SPECIMENOrdering Facility: [facility] Address: [address] [place] [address] Performed By: #### 1 9123-9, 2777-1, 04813-2 ####[facility] LABORATORYCLIA [id number] [address] STATES [facility] Urea nitrogen [Mass/Vol] 40 mg/dL High 9-24 [facility] Comment on above: Order Comment: Speci men Type: BLOOD SPECIMENOrdering Facility: [facility] Address: [address] [place] [address] Performed By: #### 1 9123-9, 27711-04, 33008-3 ####[facility]ORATORYCLIA [id number] [address] [place] CBC W Auto Differential pane l (Bld)on 07-21-2021 Basophils (Bld) [#/Vol] 0.06 10*3/uL Normal <0.11 [facility] Comment on above: Order Comment: Speci men Type: BLOOD SPECIMENOrdering Facility: [facility] Address: [address] [place] [address] Performed By: #### 5 7021-8 ####[facility] LABORATORYCLIA [id number] [address] [place] Basophils/100 WBC (Bld) 0.4 % Normal [facility] Comment on above: Order Comment: Speci men Type: BLOOD SPECIMENOrdering Facility: [facility] Address: [address] [place] [address] Performed By: #### 5 7021-8 ####[facility] LABORATORYCLIA [id number] [address] Differential cell count method Nom (Bld) Auto Normal [facility] Comment on above: Order Comment: Speci men Type: BLOOD SPECIMENOrdering Facility: [facility] Address: [address] [place] [address] Performed By: #### 5 7021-8 ####[facility] LABORATORYCLIA [id number] [place] [address] [place] Eosinophils (Bld) [#/Vol] 0.04 10*3/uL Normal <0.46 [facility] Comment on above: Order Comment: Speci men Type: BLOOD SPECIMENOrdering Facility: [facility] Address: [address] [place] [address] Performed By: #### 5 7021-8 ####[facility]ORATORYCLIA [id number] [address] [place] Eosinophils/100 WBC (Bld) 0.3 % Normal [facility] Comment on above: Order Comment: Speci men Type: BLOOD SPECIMENOrdering Facility: [facility] Address: [address] [place] [address] Performed By: #### 5 7021-8 ####[facility] LABORATORYCLIA [id number] [address] [place] Erythrocyte distribution width (RBC) [Ratio] 17.0 % High 11.5-15.0 [facility] Comment on above: Order Comment: Speci men Type: BLOOD SPECIMENOrdering Facility: [facility] Address: [address] [place] [address] Performed By: #### 5 7021-8 ####[facility] LABORATORYCLIA [id number] [address] [place] Hematocrit (Bld) [Volume fraction] 33.1 % Low 39.0-51.0 [facility] Comment on above: Order Comment: Speci men Type: BLOOD SPECIMENOrdering Facility: [facility] Address: [address] [place] [address] Performed By: #### 5 7021-8 ####[facility] LABORATORYCLIA [id number] [address] [place] Hemoglobin (Bld) [Mass/Vol] 9.7 g/dL Low 13.0-17.0 [facility] Comment on above: Order Comment: Speci men Type: BLOOD SPECIMENOrdering Facility: [facility] Address: [address] [place] [address] Performed By: #### 5 7021-8 ####[facility] LABORATORYCLIA [id number] [address] IMMATURE GRAN % 0.5 % Normal [facility] Comment on above: Order Comment: Speci men Type: BLOOD SPECIMENOrdering Facility: [facility] Address: [address] [place] [address] Performed By: #### 5 7021-8 ####[facility] LABORATORYCLIA [id number] [address] IMMATURE GRAN ABS 0.07 k/uL Normal <0.10 [facility] Comment on above: Order Comment: Speci men Type: BLOOD SPECIMENOrdering Facility: [facility] Address: [address] [place] [address] Performed By: #### 5 7021-8 ####[facility]ORATORYCLIA [id number] [address] Lymphocytes (Bld) [#/Vol] 1.99 10*3/uL Normal 1.00-4.00 [facility] Comment on above: Order Comment: Speci men Type: BLOOD SPECIMENOrdering Facility: [facility] Address: [address] [place] [address] Performed By: #### 5 7021-8 ####[facility]ORATORYCLIA [id number] [address] Lymphocytes/100 WBC (Bld) 13.4 % Normal [facility] Comment on above: Order Comment: Speci men Type: BLOOD SPECIMENOrdering Facility: [facility] Address: [address] [place] [address] Performed By: #### 5 7021-8 ####[facility]ORATORYCLIA [id number] [address] STATES [facility] MCH (RBC) [Entitic mass] 27.2 pg Normal 26.0-34.0 [facility] Comment on above: Order Comment: Speci men Type: BLOOD SPECIMENOrdering Facility: [facility] Address: [address] [place] [address] Performed By: #### 5 7021-8 ####[facility] LABORATORYCLIA [id number] [address] [place] MCHC (RBC) [Mass/Vol] 29.3 g/dL Low 30.5-36.0 [facility] Comment on above: Order Comment: Speci men Type: BLOOD SPECIMENOrdering Facility: [facility] Address: [address] [place] [address] Performed By: #### 5 7021-8 ####[facility] LABORATORYCLIA [id number] [address] [place] MCV (RBC) [Entitic vol] 92.7 fL Normal 80.0-100.0 [facility] Comment on above: Order Comment: Speci men Type: BLOOD SPECIMENOrdering Facility: [facility] Address: [address] [place] [address] Performed By: #### 5 7021-8 ####[facility]ORATORYCLIA [id number] [address] [place] Monocytes (Bld) [#/Vol] 1.10 10*3/uL High <0.87 [facility] Comment on above: Order Comment: Speci men Type: BLOOD SPECIMENOrdering Facility: [facility] Address: [address] [place] [address] Performed By: #### 5 7021-8 ####[facility] LABORATORYCLIA [id number] [address] OF [facility] Monocytes/100 WBC (Bld) 7.4 % Normal [facility] Comment on above: Order Comment: Speci men Type: BLOOD SPECIMENOrdering Facility: [facility] Address: [address] [place] [address] Performed By: #### 5 7021-8 ####[facility]ORATORYCLIA [id number] [address] [place] Neutrophils (Bld) [#/Vol] 11.61 10*3/uL High 1.45-7.50 [facility] Comment on above: Order Comment: Speci men Type: BLOOD SPECIMENOrdering Facility: [facility] Address: [address] [place] [address] Performed By: #### 5 7021-8 ####[facility] LABORATORYCLIA [id number] [address] Neutrophils/100 WBC (Bld) 78.0 % Normal [facility] Comment on above: Order Comment: Speci men Type: BLOOD SPECIMENOrdering Facility: [facility] Address: [address] [place] [address] Performed By: #### 5 7021-8 ####[facility] LABORATORYCLIA [id number] [address] [place] Nucleated RBC (Bld) [#/Vol] 10*3/uL Normal <0.01 [facility] Comment on above: Order Comment: Speci men Type: BLOOD SPECIMENOrdering Facility: [facility] Address: [address] [place] [address] Performed By: #### 5 7021-8 ####[facility]ORATORYCLIA [id number] [address] Nucleated RBC/100 WBC (Bld) [Ratio] 0.0 /100 WBC Normal [facility] Comment on above: Order Comment: Speci men Type: BLOOD SPECIMENOrdering Facility: [facility] Address: [address] [place] [address] Performed By: #### 5 7021-8 ####[facility] LABORATORYCLIA [id number] [address] [place] Platelet mean volume (Bld) [Entitic vol] 10.4 fL Normal 9.0-12.7 [facility] Comment on above: Order Comment: Speci men Type: BLOOD SPECIMENOrdering Facility: [facility] Address: [address] [place] [address] Performed By: #### 5 7021-8 ####[facility] LABORATORYCLIA [id number] [place] [address] [place] Platelets (Bld) [#/Vol] 396 10*3/uL Normal 150-400 [facility] Comment on above: Order Comment: Speci men Type: BLOOD SPECIMENOrdering Facility: [facility] Address: [address] [place] [address] Performed By: #### 5 7021-8 ####[facility] LABORATORYCLIA [id number] [place] [address] [place] RBC (Bld) [#/Vol] 3.57 10*6/uL Low 4.20-6.00 [facility] Comment on above: Order Comment: Speci men Type: BLOOD SPECIMENOrdering Facility: [facility] Address: [address] [place] [address] Performed By: #### 5 7021-8 ####[facility]ORATORYCLIA [id number] [address] STATES [place] [facility] WBC (Bld) [#/Vol] 14.87 10*3/uL High 3.70-11.00 [facility] Comment on above: Order Comment: Speci men Type: BLOOD SPECIMENOrdering Facility: [facility] Address: [address] [place] [address] Performed By: #### 5 7021-8 ####[facility] LABORATORYCLIA [id number] [address] OF [facility] Gas and Carbon monoxide pane l (BldV)on 07-21-2021 Base excess Calc (BldV) [Moles/Vol] 7 mmol/L High 0-2 [facility] Comment on above: Order Comment: Speci men Type: VENOUS BLOOD SPECIMENOrdering Facility: [facility] Address: [address] [place] [address] Performed By: #### 2 4344-4 ####[facility] LABORATORYCLIA [id number] [address] Body temperature 98.6 [degF] Normal [facility] Comment on above: Order Comment: Speci men Type: VENOUS BLOOD SPECIMENOrdering Facility: [facility] Address: [address] [place] [address] Performed By: #### 2 4344-4 ####[facility] LABORATORYCLIA [id number] [place] [address] [place] CALCIUM IONIZED, PH CORRECTED 1.21 mmol/L Normal 1.08-1.30 [facility] Comment on above: Order Comment: Speci men Type: VENOUS BLOOD SPECIMENOrdering Facility: [facility] Address: [address] [place] [address] Performed By: #### 2 4344-4 ####[facility] LABORATORYCLIA [id number] [place] [address] [place] Calcium.ionized (BldV) [Mass/Vol] 1.23 mmol/L Normal 1.08-1.30 [facility] Comment on above: Order Comment: Speci men Type: VENOUS BLOOD SPECIMENOrdering Facility: [facility] Address: [address] [place] [address] Performed By: #### 2 4344-4 ####[facility] LABORATORYCLIA [id number] [place] [address] [place] Carboxyhemoglobin (BldV) [Mass fraction] 2.3 % High 0.0-2.0 [facility] Comment on above: Order Comment: Speci men Type: VENOUS BLOOD SPECIMENOrdering Facility: [facility] Address: [address] [place] [address] Result Comment: Carb oxyhemoglobin Reference Range for Smokers: 2.0-8.0% Performed By: #### 2 4344-4 ####[facility]ORATORYCLIA [id number] [address] [place] CO2 (BldV) [Partial pressure] 58 mm[Hg] High 42-55 [facility] Comment on above: Order Comment: Speci men Type: VENOUS BLOOD SPECIMENOrdering Facility: [facility] Address: [address] [place] [address] Performed By: #### 2 4344-4 ####[facility]ORATORYCLIA [id number] [place] [address] [place] CO2 [Moles/Vol] 31 mmol/L High 25-29 [facility] Comment on above: Order Comment: Speci men Type: VENOUS BLOOD SPECIMENOrdering Facility: [facility] Address: [address] [place] [address] Performed By: #### 2 4344-4 ####[facility] LABORATORYCLIA [id number] [place] [address] [place] Glucose [Mass/Vol] 146 mg/dL High 60-105 [facility] Comment on above: Order Comment: Speci men Type: VENOUS BLOOD SPECIMENOrdering Facility: [facility] Address: [address] [place] [address] Performed By: #### 2 4344-4 ####[facility]ORATORYCLIA [id number] [place] [address] [place] HCO3 (Bld) [Moles/Vol] 33 mmol/L High 24-28 [facility] Comment on above: Order Comment: Speci men Type: VENOUS BLOOD SPECIMENOrdering Facility: [facility] Address: [address] [place] [address] Performed By: #### 2 4344-4 ####[facility]ORATORYCLIA [id number] [place] [address] [place] Hematocrit (Bld) [Volume fraction] 30.1 % Low 39.0-51.0 [facility] Comment on above: Order Comment: Speci men Type: VENOUS BLOOD SPECIMENOrdering Facility: [facility] Address: [address] [place] [address] Performed By: #### 2 4344-4 ####[facility]ORATORYCLIA [id number] [place] [address] [place] Hemoglobin (Bld) [Mass/Vol] 9.7 g/dL Low 13.0-17.0 [facility] Comment on above: Order Comment: Speci men Type: VENOUS BLOOD SPECIMENOrdering Facility: [facility] Address: [address] [place] [address] Performed By: #### 2 4344-4 ####[facility] LABORATORYCLIA [id number] [place] [id number] [place] Methemoglobin (Bld) [Mass fraction] % Normal 0.0-1.5 [facility] Comment on above: Order Comment: Speci men Type: VENOUS BLOOD SPECIMENOrdering Facility: [facility] Address: [address] [place] [address] Performed By: #### 2 4344-4 ####[facility] LABORATORYCLIA [id number] [address] [place] O2 THERAPY NC = Nasal Cannula Normal [facility] Comment on above: Order Comment: Speci men Type: VENOUS BLOOD SPECIMENOrdering Facility: [facility] Address: [address] [place] [address] Performed By: #### 2 4344-4 ####[facility]ORATORYCLIA [id number] [address] [place] Oxygen (BldV) [Partial pressure] 64 mm[Hg] High 35-45 [facility] Comment on above: Order Comment: Speci men Type: VENOUS BLOOD SPECIMENOrdering Facility: [facility] Address: [address] [place] [address] Performed By: #### 2 4344-4 ####[facility]ORATORYCLIA [id number] [address] [place] Oxygen saturation in Blood 90 % High 60-85 [facility] Comment on above: Order Comment: Speci men Type: VENOUS BLOOD SPECIMENOrdering Facility: [facility] Address: [address] [place] [address] Performed By: #### 2 4344-4 ####[facility]ORATORYCLIA [id number] [address] [place] Oxyhemoglobin (BldV) [Mass fraction] 87 % High 60-85 [facility] Comment on above: Order Comment: Speci men Type: VENOUS BLOOD SPECIMENOrdering Facility: [facility] Address: [address] [place] [address] Performed By: #### 2 4344-4 ####[facility]ORATORYCLIA [id number] [place] [address] [place] pH (BldV) 7.38 [pH] Normal 7.32-7.42 [facility] Comment on above: Order Comment: Speci men Type: VENOUS BLOOD SPECIMENOrdering Facility: [facility] Address: [address] [place] [address] Performed By: #### 2 4344-4 ####[facility] LABORATORYCLIA [id number] [address] [place] Potassium [Moles/Vol] 3.8 mmol/L Normal 3.5-5.0 [facility] Comment on above: Order Comment: Speci men Type: VENOUS BLOOD SPECIMENOrdering Facility: [facility] Address: [address] [place] [address] Performed By: #### 2 4344-4 ####[facility] LABORATORYCLIA [id number] [address] [place] Sodium [Moles/Vol] 145 mmol/L High 136-144 [facility] Comment on above: Order Comment: Speci men Type: VENOUS BLOOD SPECIMENOrdering Facility: [facility] Address: [address] [place] [address] Performed By: #### 2 4344-4 ####[facility] LABORATORYCLIA [id number] [address] [place] Base excess Calc (BldV) [Moles/Vol] 8 mmol/L High 0-2 [facility] Comment on above: Order Comment: Speci men Type: VENOUS BLOOD SPECIMENOrdering Facility: [facility] Address: [address] [place] [address] Performed By: #### 2 4344-4 ####[facility] LABORATORYCLIA [id number] [address] [place] Body temperature 100.22 [degF] Normal [facility] Comment on above: Order Comment: Speci men Type: VENOUS BLOOD SPECIMENOrdering Facility: [facility] Address: [address] [place] [address] Performed By: #### 2 4344-4 ####[facility] LABORATORYCLIA [id number] [address] STATES OF [facility] CALCIUM IONIZED, PH CORRECTED 1.25 mmol/L Normal 1.08-1.30 [facility] Comment on above: Order Comment: Speci men Type: VENOUS BLOOD SPECIMENOrdering Facility: [facility] Address: [address] [place] [address] Performed By: #### 2 4344-4 ####[facility] LABORATORYCLIA [id number] [address] Calcium.ionized (BldV) [Mass/Vol] 1.24 mmol/L Normal 1.08-1.30 [facility] Comment on above: Order Comment: Speci men Type: VENOUS BLOOD SPECIMENOrdering Facility: [facility] Address: [address] [place] [address] Performed By: #### 2 4344-4 ####[facility] LABORATORYCLIA [id number] [address] [place] Carboxyhemoglobin (BldV) [Mass fraction] 2.5 % High 0.0-2.0 [facility] Comment on above: Order Comment: Speci men Type: VENOUS BLOOD SPECIMENOrdering Facility: [facility] Address: [address] [place] [address] Result Comment: Carb oxyhemoglobin Reference Range for Smokers: 2.0-8.0% Performed By: #### 2 4344-4 ####[facility]ORATORYCLIA [id number] [address] [place] CO2 (BldV) [Partial pressure] 53 mm[Hg] Normal 42-55 [facility] Comment on above: Order Comment: Speci men Type: VENOUS BLOOD SPECIMENOrdering Facility: [facility] Address: [address] [place] [address] Performed By: #### 2 4344-4 ####[facility] LABORATORYCLIA [id number] [address] [place] CO2 [Moles/Vol] 31 mmol/L High 25-29 [facility] Comment on above: Order Comment: Speci men Type: VENOUS BLOOD SPECIMENOrdering Facility: [facility] Address: [address] [place] [address] Performed By: #### 2 4344-4 ####[facility] LABORATORYCLIA [id number] [address] [place] CO2 adjusted to patient's actual temperature (BldV) [Partial pressure] 56 mmHg High 42-55 [facility] Comment on above: Order Comment: Speci men Type: VENOUS BLOOD SPECIMENOrdering Facility: [facility] Address: [address] [place] [address] Performed By: #### 2 4344-4 ####[facility] LABORATORYCLIA [id number] [address] [place] Glucose [Mass/Vol] 131 mg/dL High 60-105 [facility] Comment on above: Order Comment: Speci men Type: VENOUS BLOOD SPECIMENOrdering Facility: [facility] Address: [address] [place] [address] Performed By: #### 2 4344-4 ####[facility] LABORATORYCLIA [id number] [place] [address] [place] HCO3 (Bld) [Moles/Vol] 33 mmol/L High 24-28 [facility] Comment on above: Order Comment: Speci men Type: VENOUS BLOOD SPECIMENOrdering Facility: [facility] Address: [address] [place] [address] Performed By: #### 2 4344-4 ####[facility] LABORATORYCLIA [id number] [place] [address] [place] Hematocrit (Bld) [Volume fraction] 30.8 % Low 39.0-51.0 [facility] Comment on above: Order Comment: Speci men Type: VENOUS BLOOD SPECIMENOrdering Facility: [facility] Address: [address] [place] [address] Performed By: #### 2 4344-4 ####[facility] LABORATORYCLIA [id number] [address] OF [facility] Hemoglobin (Bld) [Mass/Vol] 10.0 g/dL Low 13.0-17.0 [facility] Comment on above: Order Comment: Speci men Type: VENOUS BLOOD SPECIMENOrdering Facility: [facility] Address: [address] [place] [address] Performed By: #### 2 4344-4 ####[facility] LABORATORYCLIA [id number] [address] Methemoglobin (Bld) [Mass fraction] % Normal 0.0-1.5 [facility] Comment on above: Order Comment: Speci men Type: VENOUS BLOOD SPECIMENOrdering Facility: [facility] Address: [address] [place] [address] Performed By: #### 2 4344-4 ####[facility] LABORATORYCLIA [id number] [address] O2 THERAPY NC = Nasal Cannula Normal [facility] Comment on above: Order Comment: Speci men Type: VENOUS BLOOD SPECIMENOrdering Facility: [facility] Address: [address] [place] [address] Performed By: #### 2 4344-4 ####[facility] LABORATORYCLIA [id number] [address] Oxygen (BldV) [Partial pressure] 58 mm[Hg] High 35-45 [facility] Comment on above: Order Comment: Speci men Type: VENOUS BLOOD SPECIMENOrdering Facility: [facility] Address: [address] [place] [address] Performed By: #### 2 4344-4 ####[facility] LABORATORYCLIA [id number] [place] [address] [place] Oxygen adjusted to patient's actual temperature (BldV) [Partial pressure] 61 mmHg High 35-45 [facility] Comment on above: Order Comment: Speci men Type: VENOUS BLOOD SPECIMENOrdering Facility: [facility] Address: [address] [address] Performed By: #### 2 4344-4 ####[facility] LABORATORYCLIA [id number] [address] [place] Oxygen saturation in Blood 88 % High 60-85 [facility] Comment on above: Order Comment: Speci men Type: VENOUS BLOOD SPECIMENOrdering Facility: [facility] Address: [address] [place] [address] Performed By: #### 2 4344-4 ####[facility] LABORATORYCLIA [id number] [address] Oxyhemoglobin (BldV) [Mass fraction] 85 % Normal 60-85 [facility] Comment on above: Order Comment: Speci men Type: VENOUS BLOOD SPECIMENOrdering Facility: [facility] Address: [address] [address] Performed By: #### 2 4344-4 ####[facility]ORATORYCLIA [id number] [address] [place] pH (BldV) 7.41 [pH] Normal 7.32-7.42 [facility] Comment on above: Order Comment: Speci men Type: VENOUS BLOOD SPECIMENOrdering Facility: [facility] Address: [address] [address] Performed By: #### 2 4344-4 ####[facility]ORATORYCLIA [id number] [address] STATES [facility] pH adjusted to patient's actual temperature (BldV) 7.40 Normal 7.32-7.42 [facility] Comment on above: Order Comment: Speci men Type: VENOUS BLOOD SPECIMENOrdering Facility: [facility] Address: [address] [address] Performed By: #### 2 4344-4 ####[facility] LABORATORYCLIA [id number] [address] [place] Potassium [Moles/Vol] 4.0 mmol/L Normal 3.5-5.0 [facility] Comment on above: Order Comment: Speci men Type: VENOUS BLOOD SPECIMENOrdering Facility: [facility] Address: [address] [place] [address] Performed By: #### 2 4344-4 ####[facility]ORATORYCLIA [id number] [address] STATES [facility] Sodium [Moles/Vol] 146 mmol/L High 136-144 [facility] Comment on above: Order Comment: Speci men Type: VENOUS BLOOD SPECIMENOrdering Facility: [facility] Address: [address] [place] [address] Performed By: #### 2 4344-4 ####[facility] LABORATORYCLIA [id number] [address] [place] Magnesium SerPl-ncon 07-21 Magnesium [Mass/Vol] 2.5 mg/dL High 1.7-2.3 [facility] Comment on above: Order Comment: Speci men Type: BLOOD SPECIMENOrdering Facility: [facility] Address: [address] [place] [address] Performed By: #### 1 9123-9, 2777-1, 50423-9 ####[facility]ORATORYCLIA [id number] [address] [place] NURSING PROGon 07-21-2021 NURSING PROG Normal [facility] Phosphate SerPl-mCncon 07-21 Phosphate [Mass/Vol] 3.7 mg/dL Normal 2.7-4.8 [facility] Comment on above: Order Comment: Speci men Type: BLOOD SPECIMENOrdering Facility: [facility] Address: [address] [place] [address] Performed By: #### 1 9123-9, 2777-1, 99350-4 ####[facility] LABORATORYCLIA [id number] [place] [address] [facility] [place] THERAPY NTon 07-21-2021 THERAPY NT Normal [facility] XR CHEST 1V FRONTALon 2021 XR CHEST 1V FRONTAL Normal [facility] aPTT PPPon 07-21-2021 aPTT Coag (PPP) [Time] 53.0 s High 23.0-32.4 [facility] Comment on above: Order Comment: Speci men Type: BLOOD SPECIMENOrdering Facility: [facility] Address: [address] [place] [address] Performed By: #### 1 4979-9 ####[facility]ORATORYCLIA [id number] [address] [place] ALLIED HEALTHon 07-20-2021 ALLIED HEALTH Normal [facility] Basic metabolic 2000 panelon 07-20-2021 Anion gap [Moles/Vol] 8 mmol/L Low 9-18 [facility] Comment on above: Order Comment: Speci men Type: BLOOD SPECIMENOrdering Facility: [facility] Address: [address] [place] [address] Performed By: #### 2 4321-2, 67162-2, 2777-1 ####[facility]ITALCLIA [id number] [place] [address] [place] Calcium [Mass/Vol] 9.7 mg/dL Normal 8.5-10.2 [facility] Comment on above: Order Comment: Speci men Type: BLOOD SPECIMENOrdering Facility: [facility] Address: [address] [place] [address] Performed By: #### 2 4321-2, 35018-7, 2777-1 ####[facility]ORATORYCLIA [id number] [place] [address] [place] Chloride [Moles/Vol] 104 mmol/L Normal 97-105 [facility] Comment on above: Order Comment: Speci men Type: BLOOD SPECIMENOrdering Facility: [facility] Address: [address] [place] [address] Performed By: #### 2 4321-2, , 2776-05 ####[facility]ORATORYCLIA [id number] [place] [address] [place] CO2 [Moles/Vol] 34 mmol/L High 22-30 [facility] Comment on above: Order Comment: Speci men Type: BLOOD SPECIMENOrdering Facility: [facility] Address: [address] [place] [address] Performed By: #### 2 4321-2, , 2776-05 ####[facility]ORATORYCLIA [id number] [place], [place] [address] [place] [address] [place] [facility] Creatinine [Mass/Vol] 0.76 mg/dL Normal 0.73-1.22 [facility] Comment on above: Order Comment: Speci men Type: BLOOD SPECIMENOrdering Facility: [facility] Address: [address] [place] [address] Performed By: #### 2 4321-2, , 2776-05 ####[facility]ITALCLIA [id number] [address] ESTIMATED GLOMERULAR FILTRATION RATE 97 mL/min/1.73m??? Normal >=60 [facility] Comment on above: Order Comment: Speci men Type: BLOOD SPECIMENOrdering Facility: [facility] Address: [address] [place] [address] Result Comment: Luzmaria mated Glomerular Filtration Rate [...] 4321-2, , 2776-05 ####[facility] LABORATORYCLIA [id number] [place] [address] [place] Glucose [Mass/Vol] 123 mg/dL High 74-99 [facility] Comment on above: Order Comment: Shira feldman Type: BLOOD SPECIMENOrdering Facility: [facility] Address: [address] [place], [place] [address] Result Comment: The [employer] [place] [employer] (ADA) provides guidance for cutoff [...] Standards of Medical Care in Diabetes 2016, [employer] [place] [employer]. Diabetes Care. 2016.39(Suppl 1). Performed By: #### 2 4321-2, , 2776-05 ####[facility]ORATORYCLIA [id number] [place] [address] [place] Potassium [Moles/Vol] 4.4 mmol/L Normal 3.7-5.1 [facility] Comment on above: Order Comment: Shira feldman Type: BLOOD SPECIMENOrdering Facility: [facility] Address: [address] [place], [place] [address] Performed By: #### 2 4321-2, , 2776-05 ####[facility]ORATORYCLIA [id number] [place] [address] [place] Sodium [Moles/Vol] 146 mmol/L High 136-144 [facility] Comment on above: Order Comment: Shira feldman Type: BLOOD SPECIMENOrdering Facility: [facility] Address: [address] [place], [place] [address] Performed By: #### 2 4321-2, , 2776-05 ####[facility]ORATORYCLIA [id number] [place] [address] [place] Urea nitrogen [Mass/Vol] 38 mg/dL High 9-24 [facility] Comment on above: Order Comment: Speci men Type: BLOOD SPECIMENOrdering Facility: [facility] Address: [address] [place] [address] Performed By: #### 2 4321-2, 20562-2, 2777-1 ####[facility]ORATORYCLIA [id number] [address] [place] CASE MANAGEMon 07-20-2021 CASE MANAGEM Normal [facility] CBC W Auto Differential pane l (Bld)on 07-20-2021 Basophils (Bld) [#/Vol] 0.05 10*3/uL Normal <0.11 [facility] Comment on above: Order Comment: Speci men Type: BLOOD SPECIMENOrdering Facility: [facility] Address: [address] [place] [address] Performed By: #### 5 7021-8 ####[facility]ORATORYCLIA [id number] [address] [place] Basophils/100 WBC (Bld) 0.5 % Normal [facility] Comment on above: Order Comment: Speci men Type: BLOOD SPECIMENOrdering Facility: [facility] Address: [address] [place] [address] Performed By: #### 5 7021-8 ####[facility]ORATORYCLIA [id number] [address] [place] Differential cell count method Nom (Bld) Auto Normal [facility] Comment on above: Order Comment: Speci men Type: BLOOD SPECIMENOrdering Facility: [facility] Address: [address] [place] [address] Performed By: #### 5 7021-8 ####[facility] LABORATORYCLIA [id number] [place] [address] [place] Eosinophils (Bld) [#/Vol] 0.43 10*3/uL Normal <0.46 [facility] Comment on above: Order Comment: Speci men Type: BLOOD SPECIMENOrdering Facility: [facility] Address: [address] [place], [place] [address] Performed By: #### 5 7021-8 ####[facility] LABORATORYCLIA [id number] [address] [place] Eosinophils/100 WBC (Bld) 4.1 % Normal [facility] Comment on above: Order Comment: Speci men Type: BLOOD SPECIMENOrdering Facility: [facility] Address: [address] [place] [address] Performed By: #### 5 7021-8 ####[facility] LABORATORYCLIA [id number] [address] [place] Erythrocyte distribution width (RBC) [Ratio] 16.7 % High 11.5-15.0 [facility] Comment on above: Order Comment: Speci men Type: BLOOD SPECIMENOrdering Facility: [facility] Address: [address] [place] [address] Performed By: #### 5 7021-8 ####[facility] LABORATORYCLIA [id number] [address] Hematocrit (Bld) [Volume fraction] 33.0 % Low 39.0-51.0 [facility] Comment on above: Order Comment: Speci men Type: BLOOD SPECIMENOrdering Facility: [facility] Address: [address] [place] [address] Performed By: #### 5 7021-8 ####[facility] LABORATORYCLIA [id number] [address] [place] Hemoglobin (Bld) [Mass/Vol] 9.7 g/dL Low 13.0-17.0 [facility] Comment on above: Order Comment: Speci men Type: BLOOD SPECIMENOrdering Facility: [facility] Address: [address] [place] [address] Performed By: #### 5 7021-8 ####[facility] LABORATORYCLIA [id number] [address] [place] IMMATURE GRAN % 0.4 % Normal [facility] Comment on above: Order Comment: Speci men Type: BLOOD SPECIMENOrdering Facility: [facility] Address: [address] [place] [address] Performed By: #### 5 7021-8 ####[facility] LABORATORYCLIA [id number] [address] IMMATURE GRAN ABS 0.04 k/uL Normal <0.10 [facility] Comment on above: Order Comment: Speci men Type: BLOOD SPECIMENOrdering Facility: [facility] Address: [address] [place] [address] Performed By: #### 5 7021-8 ####[facility] LABORATORYCLIA [id number] [address] Lymphocytes (Bld) [#/Vol] 1.99 10*3/uL Normal 1.00-4.00 [facility] Comment on above: Order Comment: Speci men Type: BLOOD SPECIMENOrdering Facility: [facility] Address: [address] [place] [address] Performed By: #### 5 7021-8 ####[facility] LABORATORYCLIA [id number] [address] Lymphocytes/100 WBC (Bld) 18.8 % Normal [facility] Comment on above: Order Comment: Speci men Type: BLOOD SPECIMENOrdering Facility: [facility] Address: [address] [place] [address] Performed By: #### 5 7021-8 ####[facility]ORATORYCLIA [id number] [address] MCH (RBC) [Entitic mass] 27.8 pg Normal 26.0-34.0 [facility] Comment on above: Order Comment: Speci men Type: BLOOD SPECIMENOrdering Facility: [facility] Address: [address] [place] [address] Performed By: #### 5 7021-8 ####[facility]ORATORYCLIA [id number] [address] MCHC (RBC) [Mass/Vol] 29.4 g/dL Low 30.5-36.0 [facility] Comment on above: Order Comment: Speci men Type: BLOOD SPECIMENOrdering Facility: [facility] Address: [address] [place] [address] Performed By: #### 5 7021-8 ####[facility]ORATORYCLIA [id number] [address] [place] MCV (RBC) [Entitic vol] 94.6 fL Normal 80.0-100.0 [facility] Comment on above: Order Comment: Speci men Type: BLOOD SPECIMENOrdering Facility: [facility] Address: [address] [place] [address] Performed By: #### 5 7021-8 ####[facility]ORATORYCLIA [id number] [address] [place] Monocytes (Bld) [#/Vol] 0.82 10*3/uL Normal <0.87 [facility] Comment on above: Order Comment: Speci men Type: BLOOD SPECIMENOrdering Facility: [facility] Address: [address] [place] [address] Performed By: #### 5 7021-8 ####[facility]ORATORYCLIA [id number] [address] [place] Monocytes/100 WBC (Bld) 7.8 % Normal [facility] Comment on above: Order Comment: Speci men Type: BLOOD SPECIMENOrdering Facility: [facility] Address: [address] [place] [address] Performed By: #### 5 7021-8 ####[facility]ORATORYCLIA [id number] [address] [place] Neutrophils (Bld) [#/Vol] 7.23 10*3/uL Normal 1.45-7.50 [facility] Comment on above: Order Comment: Speci men Type: BLOOD SPECIMENOrdering Facility: [facility] Address: [address] [place] [address] Performed By: #### 5 7021-8 ####[facility]ORATORYCLIA [id number] [address] Neutrophils/100 WBC (Bld) 68.4 % Normal [facility] Comment on above: Order Comment: Speci men Type: BLOOD SPECIMENOrdering Facility: [facility] Address: [address] [place] [address] Performed By: #### 5 7021-8 ####[facility]ORATORYCLIA [id number] [address] [place] Nucleated RBC (Bld) [#/Vol] 10*3/uL Normal <0.01 [facility] Comment on above: Order Comment: Speci men Type: BLOOD SPECIMENOrdering Facility: [facility] Address: [address] [place] [address] Performed By: #### 5 7021-8 ####[facility]ORATORYCLIA [id number] [address] Nucleated RBC/100 WBC (Bld) [Ratio] 0.0 /100 WBC Normal [facility] Comment on above: Order Comment: Speci men Type: BLOOD SPECIMENOrdering Facility: [facility] Address: [address] [place] [address] Performed By: #### 5 7021-8 ####[facility]ORATORYCLIA [id number] [address] [place] Platelet mean volume (Bld) [Entitic vol] 10.5 fL Normal 9.0-12.7 [facility] Comment on above: Order Comment: Speci men Type: BLOOD SPECIMENOrdering Facility: [facility] Address: [address] [place] [address] Performed By: #### 5 7021-8 ####[facility]ORATORYCLIA [id number] [address] [place] Platelets (Bld) [#/Vol] 400 10*3/uL Normal 150-400 [facility] Comment on above: Order Comment: Speci men Type: BLOOD SPECIMENOrdering Facility: [facility] Address: [address] [place] [address] Performed By: #### 5 7021-8 ####[facility]ORATORYCLIA [id number] [address] RBC (Bld) [#/Vol] 3.49 10*6/uL Low 4.20-6.00 [facility] Comment on above: Order Comment: Speci men Type: BLOOD SPECIMENOrdering Facility: [facility] Address: [address] [place] [address] Performed By: #### 5 7021-8 ####[facility]ORATORYCLIA [id number] [address] WBC (Bld) [#/Vol] 10.56 10*3/uL Normal 3.70-11.00 [facility] Comment on above: Order Comment: Speci men Type: BLOOD SPECIMENOrdering Facility: [facility] Address: [address] [place] [address] Performed By: #### 5 7021-8 ####[facility]ORATORYCLIA [id number] [address] CONSULT PROGon 07-20-2021 CONSULT PROG Normal [facility] CT BRAIN WO IVCONon 07-21-[address] BRAIN WO IVCON Normal [facility] Magn[facility] Magnesium [Mass/Vol] 2.4 mg/dL High 1.7-2.3 [facility] Comment on above: Order Comment: Speci men Type: BLOOD SPECIMENOrdering Facility: [facility] Address: [address] [place] [address] Performed By: #### 2 4321-2, 84699-2, 2777-1 ####[facility]ORATORYCLIA [id number] [address] [place] NUTRITIONon 07-20-2021 NUTRITION Normal [facility] Phosphate SerPl-mCncon 07-20 Phosphate [Mass/Vol] 4.1 mg/dL Normal 2.7-4.8 [facility] Comment on above: Order Comment: Speci men Type: BLOOD SPECIMENOrdering Facility: [facility] Address: [address] [place] [address] Performed By: #### 2 4321-2, 01482-4, 2777-1 ####[facility] LABORATORYCLIA [id number] [place] [address] [place] aPTT PPPon 07-20-2021 aPTT Coag (PPP) [Time] 53.6 s High 23.0-32.4 [facility] Comment on above: Order Comment: Speci men Type: BLOOD SPECIMENOrdering Facility: [facility] Address: [address] [place] [address] Performed By: #### 1 4979-9 ####[facility]ORATORYCLIA [id number] [address] [place] Bacteria CSF Culton 07-20-19 22 Bacteria identified Cx Nom (CSF) CULTURE, CSF: No growth 14 days GRAM STAIN: No organisms seen No Polymorphonuclear Leukocytes Rare Mononuclear cells Gram stain performed on cytospun specimen. Normal [facility] Comment on above: Performed By: #### 6 06-4 ####[facility]ORATORYCLIA [id number] [place] [address] [place] CONSULT PROGon 07-19-2021 CONSULT PROG Normal [facility] CSF MANUAL DIFFon 07-19-2021 DIF TTL, CSF 100 cells counted Normal [facility] Comment on above: Order Comment: Speci men Type: CEREBROSPINAL FLUIDOrdering Facility: [facility] Address: [address] [place] [address] Performed By: #### L [id number], 01187-6, [id number] ####[facility]ORATORYCLIA [id number] [place] [address] [place] EOSIN%, CSF 1 % Normal [facility] Comment on above: Order Comment: Speci men Type: CEREBROSPINAL FLUIDOrdering Facility: [facility] Address: [address] [address] Performed By: #### L [id number], 41049-8, [id number] ####[facility]ATORYCLIA [id number] [place] [address] [place] LYMPH%, CSF 67 % Normal 50-90 [facility] Comment on above: Order Comment: Speci men Type: CEREBROSPINAL FLUIDOrdering Facility: [facility] Address: [address] [place] [address] Performed By: #### L [id number], 38070-3, [id number] ####[facility]ATORYCLIA [id number] [address] [place] MACRO%, CSF 1 % High <1 [facility] Comment on above: Order Comment: Speci men Type: CEREBROSPINAL FLUIDOrdering Facility: [facility] Address: [address] [place] [address] Performed By: #### L [id number], 39137-1, [id number] ####[facility]ATORYCLIA [id number] [place] [address] [place] MONO%, CSF 18 % Normal 10-50 [facility] Comment on above: Order Comment: Speci men Type: CEREBROSPINAL FLUIDOrdering Facility: [facility] Address: [address] [place] [address] Performed By: #### L [id number], 80561-9, [id number] ####[facility]ATORYCLIA [id number] [place] [address] [place] NEUT%, CSF 11 % High 0-3 [facility] Comment on above: Order Comment: Speci men Type: CEREBROSPINAL FLUIDOrdering Facility: [facility] Address: [address] [place] [address] Performed By: #### L [id number], 92277-8, [id number] ####[facility]ATORYCLIA [id number] [address] [place] OTHER CL%, CSF 2 % Normal [facility] Comment on above: Order Comment: Speci men Type: CEREBROSPINAL FLUIDOrdering Facility: [facility] Address: [address] [place] [address] Result Comment: Path review to follow. Performed By: #### L [id number], 51857-8, [id number] ####[facility] LABORATORYCLIA [id number] [address] CSF PATHOLOGIST INTERP (LAB REFLEX ORDER-NO BILL)on 07-19-2021 CSF STAFF REVIEW Normal [facility] Comment on above: Order Comment: Speci men Type: CEREBROSPINAL FLUIDOrdering Facility: [facility] Address: [address] [place] [address] Performed By: #### L [id number], 27755-8, [id number] ####[facility]ORATORYCLIA [id number] [address] Pathologist name Reviewed by Wing Cummings MD [facility] Comment on above: Order Comment: Speci men Type: CEREBROSPINAL FLUIDOrdering Facility: [facility] Address: [address] [place] [address] Performed By: #### L [id number], 29686-8, [id number] ####[facility]ATORYCLIA [id number] [address] Cell count panel (CSF)on Clarity (CSF) Clear Normal Clear [facility] Comment on above: Order Comment: Speci men Type: CEREBROSPINAL FLUIDOrdering Facility: [facility] Address: [address] [place] [address] Performed By: #### L [id number], 73027-3, [id number] ####[facility]ORATORYCLIA [id number] [address] Clarity (Unsp spec) Not Indicated Normal Clear [facility] Comment on above: Order Comment: Speci men Type: CEREBROSPINAL FLUIDOrdering Facility: [facility] Address: [address] [place] [address] Performed By: #### L [id number], 77743-2, [id number] ####[facility]ORYCLIA [id number] [address] [facility] Color (CSF) Colorless Normal Colorless [facility] Comment on above: Order Comment: Speci men Type: CEREBROSPINAL FLUIDOrdering Facility: [facility] Address: [address] [place] [address] Performed By: #### L [id number], 52135-2, [id number] ####[facility]ORATORYCLIA [id number] [address] [place] Color (Spun CSF) Not Indicated Normal Colorless [facility] Comment on above: Order Comment: Speci men Type: CEREBROSPINAL FLUIDOrdering Facility: [facility] Address: [address] [place] [address] Performed By: #### L [id number], 37978-2, [id number] ####[facility]ORATORYCLIA [id number] [address] [facility] CSF TUBE NUMBER Sterile Container Normal [facility] Comment on above: Order Comment: Speci men Type: CEREBROSPINAL FLUIDOrdering Facility: [facility] Address: [address] [place] [address] Performed By: #### L [id number], 53280-2, [id number] ####[facility]ATORYCLIA [id number] [address] [facility] RBC Manual cnt (CSF) [#/Vol] 0 cells/uL Normal 0-5 [facility] Comment on above: Order Comment: Speci men Type: CEREBROSPINAL FLUIDOrdering Facility: [facility] Address: [address] [place] [address] Performed By: #### L [id number], 16345-5, [id number] ####[facility]ATORYCLIA [id number] [address] WBC Manual cnt (CSF) [#/Vol] 2 cells/uL Normal 0-5 [facility] Comment on above: Order Comment: Speci men Type: CEREBROSPINAL FLUIDOrdering Facility: [facility] Address: [address] [place] [address] Performed By: #### L [id number], 84424-9, [id number] ####[facility]ORATORYCLIA [id number] [place] [address] [place] Glucose CSF-mCncon Glucose (CSF) [Mass/Vol] 69 mg/dL Normal 40-70 [facility] Comment on above: Order Comment: Speci men Type: CEREBROSPINAL FLUIDOrdering Facility: [facility] Address: [address] [place] [address] Result Comment: Lumb ar CSF glucose values of healthy patients are approximately 60% of the plasma values and must always be compared with a concurrently measured plasma value for adequate clinical interpretation.References: 1. Glucose HK (GLUC3) [package insert V 12.0 [place]]. [employer], [place], [place]. September 2015. 2. Michelle Moore, Loki HGarfield (2015). Chapter 7: Glucose and Lactate. FGarfield Alcocer al.(eds.), Cerebrospinal Fluid in Clinical Neurology. [place]: [employer]. Performed By: #### 2 342-4, 2880-3 ####[facility]ATORYCLIA [id number] [place] [address] [place] NURSING PROGon 07-19-2021 NURSING PROG Normal [facility] NURSING PROG Normal [facility] Prot CSF-mCncon 07-19-2021 Protein (CSF) [Mass/Vol] 51 mg/dL High 15-45 [facility] Comment on above: Order Comment: Speci men Type: CEREBROSPINAL FLUIDOrdering Facility: [facility] Address: [address] [place] [address] Performed By: #### 2 342-4, 2880-3 ####[facility]ORATORYCLIA [id number] [address] [place] THERAPY NTon 07-19-2021 THERAPY NT Normal [facility] Urinalysis complete panel (U )on 07-19-2021 Bilirubin Ql (U) Negative Normal Negative [facility] Comment on above: Order Comment: Speci men Type: URINE SPECIMENOrdering Facility: [facility] Address: [address] [place] [address] Performed By: #### 2 4356-8 ####[facility]ORATORYCLIA [id number] [address] [place] Clarity (Unsp spec) Clear Normal Clear [facility] Comment on above: Order Comment: Speci men Type: URINE SPECIMENOrdering Facility: [facility] Address: [address] [place] [address] Performed By: #### 2 4356-8 ####[facility]ORATORYCLIA [id number] [address] STATES [facility] Color (U) Colorless Normal yellow [facility] Comment on above: Order Comment: Speci men Type: URINE SPECIMENOrdering Facility: [facility] Address: [address] [place] [address] Performed By: #### 2 4356-8 ####[facility]ORATORYCLIA [id number] [address] [place] Glucose Test strip (U) [Mass/Vol] Negative Normal Negative [facility] Comment on above: Order Comment: Speci men Type: URINE SPECIMENOrdering Facility: [facility] Address: [address] [place] [address] Performed By: #### 2 4356-8 ####[facility]ORATORYCLIA [id number] [address] Hemoglobin Ql (U) Trace Abnormal Negative [facility] Comment on above: Order Comment: Speci men Type: URINE SPECIMENOrdering Facility: [facility] Address: [address] [place] [address] Performed By: #### 2 4356-8 ####[facility]ORATORYCLIA [id number] [address] [place] Hyaline casts (Urine sed) [#/Area] 1-3 /LPF Abnormal 0 /LPF [facility] Comment on above: Order Comment: Speci men Type: URINE SPECIMENOrdering Facility: [facility] Address: [address] [place] [address] Performed By: #### 2 4356-8 ####[facility]ORATORYCLIA [id number] [address] [facility] Ketones Ql (U) Negative Normal Negative [facility] Comment on above: Order Comment: Speci men Type: URINE SPECIMENOrdering Facility: [facility] Address: [address] [place] [address] Performed By: #### 2 4356-8 ####[facility]ORATORYCLIA [id number] [address] Leukocyte esterase Test strip Ql (U) Negative Normal Negative [facility] Comment on above: Order Comment: Speci men Type: URINE SPECIMENOrdering Facility: [facility] Address: [address] [place] [address] Performed By: #### 2 4356-8 ####[facility]ORATORYCLIA [id number] [address] STATES [facility] Nitrite Ql (U) Negative Normal Negative [facility] Comment on above: Order Comment: Speci men Type: URINE SPECIMENOrdering Facility: [facility] Address: [address] [place] [address] Performed By: #### 2 4356-8 ####[facility]ORATORYCLIA [id number] [address] [place] pH (U) 7.0 [pH] Normal 5.0-8.0 [facility] Comment on above: Order Comment: Speci men Type: URINE SPECIMENOrdering Facility: [facility] Address: [address] [place] [address] Performed By: #### 2 4356-8 ####[facility]ORATORYCLIA [id number] [address] [place] Protein (U) [Mass/Vol] Negative Normal Negative [facility] Comment on above: Order Comment: Speci men Type: URINE SPECIMENOrdering Facility: [facility] Address: [address] [place] [address] Performed By: #### 2 4356-8 ####[facility]ORATORYCLIA [id number] [address] RBC LM.HPF (Urine sed) [#/Area] 6-10 /HPF Abnormal 0-3 /HPF [facility] Comment on above: Order Comment: Speci men Type: URINE SPECIMENOrdering Facility: [facility] Address: [address] [place] [address] Performed By: #### 2 4356-8 ####[facility]ORATORYCLIA [id number] [address] Specific gravity (U) [Rel density] 1.008 Normal 1.005-1.030 [facility] Comment on above: Order Comment: Speci men Type: URINE SPECIMENOrdering Facility: [facility] Address: [address] [place] [address] Performed By: #### 2 4356-8 ####[facility]ORATORYCLIA [id number] [address] Urobilinogen Ql (U) Normal Normal Negative [facility] Comment on above: Order Comment: Speci men Type: URINE SPECIMENOrdering Facility: [facility] Address: [address] [place] [address] Performed By: #### 2 4356-8 ####[facility]ORATORYCLIA [id number] [address] WBC LM.HPF (Urine sed) [#/Area] 0-5 /HPF Normal 0-5 /HPF [facility] Comment on above: Order Comment: Speci men Type: URINE SPECIMENOrdering Facility: [facility] Address: [address] [place] [address] Performed By: #### 2 4356-8 ####[facility]ORATORYCLIA [id number] [address] Vancomycin random [Mass/Vol] on 07-19-2021 Vancomycin [Mass/Vol] 13.9 ug/mL Normal 10.0-20.0 [facility] Comment on above: Order Comment: Speci men Type: BLOOD SPECIMENOrdering Facility: [facility] Address: [address] [place] [address] Result Comment: Refe rence ranges and high/low indicator flags are provided as general guidelines only. The treating physician must determine appropriate target levels/dosing based on the specific clinical situation. Performed By: #### 4 091-5 ####[facility]ORATORYCLIA [id number] [address] [place] aPTT PPPon 07-19-2021 aPTT Coag (PPP) [Time] 53.9 s High 23.0-32.4 [facility] Comment on above: Order Comment: Speci men Type: BLOOD SPECIMENOrdering Facility: [facility] Address: [address] [place] [address] Performed By: #### 1 4979-9 ####[facility]ORATORYCLIA [id number] [place] [address] [place] Basic metabolic 2000 panelon 07-18-2021 Anion gap [Moles/Vol] 6 mmol/L Low 9-18 [facility] Comment on above: Order Comment: Speci men Type: BLOOD SPECIMENOrdering Facility: [facility] Address: [address] [place] [address] Performed By: #### 2 4321-2, , 2777-1 ####[facility]ORATORYCLIA [id number] [place] [address] [place] Calcium [Mass/Vol] 9.4 mg/dL Normal 8.5-10.2 [facility] Comment on above: Order Comment: Speci men Type: BLOOD SPECIMENOrdering Facility: [facility] Address: [address] [place] [address] Performed By: #### 2 4321-2, , 2777-1 ####[facility]ORATORYCLIA [id number] [address] [place] Chloride [Moles/Vol] 103 mmol/L Normal 97-105 [facility] Comment on above: Order Comment: Speci francia Type: BLOOD SPECIMENOrdering Facility: [facility] Address: [address] [place] [address] Performed By: #### 2 4321-2, 50542-4, 277-1 ####[facility]ORATORYCLIA [id number] [place] [id number] [place] CO2 [Moles/Vol] 34 mmol/L High 22-30 [facility] Comment on above: Order Comment: Speci men Type: BLOOD SPECIMENOrdering Facility: [facility] Address: [address] [place] [address] Performed By: #### 2 4321-2, , 2776-05 ####[facility] [id number] [address] Creatinine [Mass/Vol] 0.75 mg/dL Normal 0.73-1.22 [facility] Comment on above: Order Comment: Speci men Type: BLOOD SPECIMENOrdering Facility: [facility] Address: [address] [place] [address] Performed By: #### 2 4321-2, , 2777 ####[facility]ORATORYCLIA [id number] [address] ESTIMATED GLOMERULAR FILTRATION RATE 98 mL/min/1.73m??? Normal >=60 [facility] Comment on above: Order Comment: Speci men Type: BLOOD SPECIMENOrdering Facility: [facility] Address: [address] [place] [address] Result Comment: Luzmaria mated Glomerular Filtration Rate [...] Performed By: #### 2 4321-2, , 2776-05 ####[facility]ITALCLIA [id number] [place] [address] [place] Glucose [Mass/Vol] 125 mg/dL High 74-99 [facility] Comment on above: Order Comment: Shira feldman Type: BLOOD SPECIMENOrdering Facility: [facility] Address: [address] [place], [place] [id number] Result Comment: The [place] [employer] (ADA) provides guidance for cutoff [...] Standards of Medical Care in Diabetes 2016, [employer] [place] [employer]. Diabetes Care. 2016.39(Suppl 1). Performed By: #### 2 4321-2, , 2776-05 ####[facility]ITALCLIA [id number] [place] [address] [place] Potassium [Moles/Vol] 4.4 mmol/L Normal 3.7-5.1 [facility] Comment on above: Order Comment: Shira feldman Type: BLOOD SPECIMENOrdering Facility: [facility] Address: [address] [place] [place] [id number] Performed By: #### 2 4321-2, , 2776-05 ####[facility]ORATORYCLIA [id number] [place] [address] [place] Sodium [Moles/Vol] 143 mmol/L Normal 136-144 [facility] Comment on above: Order Comment: Shira feldman Type: BLOOD SPECIMENOrdering Facility: [facility] Address: [address] [place] [place] [address] Performed By: #### 2 4321-2, 10524-4, 2777-1 ####[facility]ORATORYCLIA [id number] [place] [address] [place] Urea nitrogen [Mass/Vol] 33 mg/dL High 9-24 [facility] Comment on above: Order Comment: Speci men Type: BLOOD SPECIMENOrdering Facility: [facility] Address: [address] [place] [address] Performed By: #### 2 4321-2, , 2776-05 ####[facility]ORATORYCLIA [id number] [address] [place] CASE MANAGEMon 07-18-2021 CASE MANAGEM Normal [facility] CBC W Auto Differential pane l (Bld)on 07-18-2021 Basophils (Bld) [#/Vol] 0.05 10*3/uL Normal <0.11 [facility] Comment on above: Order Comment: Speci men Type: BLOOD SPECIMENOrdering Facility: [facility] Address: [address] [place] [address] Performed By: #### 5 7021-8 ####[facility]ORATORYCLIA [id number] [address] [place] Basophils/100 WBC (Bld) 0.5 % Normal [facility] Comment on above: Order Comment: Speci men Type: BLOOD SPECIMENOrdering Facility: [facility] Address: [address] [place] [address] Performed By: #### 5 7021-8 ####[facility]ORATORYCLIA [id number] [address] STATES [facility] Differential cell count method Nom (Bld) Auto Normal [facility] Comment on above: Order Comment: Speci men Type: BLOOD SPECIMENOrdering Facility: [facility] Address: [address] [place] [address] Performed By: #### 5 7021-8 ####[facility]ORATORYCLIA [id number] [address] [place] Eosinophils (Bld) [#/Vol] 0.44 10*3/uL Normal <0.46 [facility] Comment on above: Order Comment: Speci men Type: BLOOD SPECIMENOrdering Facility: [facility] Address: [address] [place] [address] Performed By: #### 5 7021-8 ####[facility]ORATORYCLIA [id number] [address] Eosinophils/100 WBC (Bld) 4.3 % Normal [facility] Comment on above: Order Comment: Speci men Type: BLOOD SPECIMENOrdering Facility: [facility] Address: [address] [place] [address] Performed By: #### 5 7021-8 ####[facility]ATORYCLIA [id number] [address] Erythrocyte distribution width (RBC) [Ratio] 16.6 % High 11.5-15.0 [facility] Comment on above: Order Comment: Speci men Type: BLOOD SPECIMENOrdering Facility: [facility] Address: [address] [place] [address] Performed By: #### 5 7021-8 ####[facility]ORATORYCLIA [id number] [address] [place] Hematocrit (Bld) [Volume fraction] 32.2 % Low 39.0-51.0 [facility] Comment on above: Order Comment: Speci men Type: BLOOD SPECIMENOrdering Facility: [facility] Address: [address] [place] [address] Performed By: #### 5 7021-8 ####[facility]ATORYCLIA [id number] [address] Hemoglobin (Bld) [Mass/Vol] 9.5 g/dL Low 13.0-17.0 [facility] Comment on above: Order Comment: Speci men Type: BLOOD SPECIMENOrdering Facility: [facility] Address: [address] [place] [address] Performed By: #### 5 7021-8 ####[facility]ATORYCLIA [id number] [address] IMMATURE GRAN % 0.4 % Normal [facility] Comment on above: Order Comment: Speci men Type: BLOOD SPECIMENOrdering Facility: [facility] Address: [address] [place] [address] Performed By: #### 5 7021-8 ####[facility]ATORYCLIA [id number] [address] IMMATURE GRAN ABS 0.04 k/uL Normal <0.10 [facility] Comment on above: Order Comment: Speci men Type: BLOOD SPECIMENOrdering Facility: [facility] Address: [address] [place] [address] Performed By: #### 5 7021-8 ####[facility]ORATORYCLIA [id number] [address] Lymphocytes (Bld) [#/Vol] 1.71 10*3/uL Normal 1.00-4.00 [facility] Comment on above: Order Comment: Speci men Type: BLOOD SPECIMENOrdering Facility: [facility] Address: [address] [place] [address] Performed By: #### 5 7021-8 ####[facility]ORATORYCLIA [id number] [address] Lymphocytes/100 WBC (Bld) 16.9 % Normal [facility] Comment on above: Order Comment: Speci men Type: BLOOD SPECIMENOrdering Facility: [facility] Address: [address] [place] [address] Performed By: #### 5 7021-8 ####[facility]ORATORYCLIA [id number] [address] [place] MCH (RBC) [Entitic mass] 27.9 pg Normal 26.0-34.0 [facility] Comment on above: Order Comment: Speci men Type: BLOOD SPECIMENOrdering Facility: [facility] Address: [address] [place] [address] Performed By: #### 5 7021-8 ####[facility]ORATORYCLIA [id number] [address] MCHC (RBC) [Mass/Vol] 29.5 g/dL Low 30.5-36.0 [facility] Comment on above: Order Comment: Speci men Type: BLOOD SPECIMENOrdering Facility: [facility] Address: [address] [place] [address] Performed By: #### 5 7021-8 ####[facility]ORATORYCLIA [id number] [address] MCV (RBC) [Entitic vol] 94.7 fL Normal 80.0-100.0 [facility] Comment on above: Order Comment: Speci men Type: BLOOD SPECIMENOrdering Facility: [facility] Address: [address] [place] [address] Performed By: #### 5 7021-8 ####[facility]ORATORYCLIA [id number] [address] Monocytes (Bld) [#/Vol] 0.69 10*3/uL Normal <0.87 [facility] Comment on above: Order Comment: Speci men Type: BLOOD SPECIMENOrdering Facility: [facility] Address: [address] [place] [address] Performed By: #### 5 7021-8 ####[facility]ORATORYCLIA [id number] [address] Monocytes/100 WBC (Bld) 6.8 % Normal [facility] Comment on above: Order Comment: Speci men Type: BLOOD SPECIMENOrdering Facility: [facility] Address: [address] [place] [address] Performed By: #### 5 7021-8 ####[facility]ORATORYCLIA [id number] [place] [address] [place] Neutrophils (Bld) [#/Vol] 7.19 10*3/uL Normal 1.45-7.50 [facility] Comment on above: Order Comment: Speci men Type: BLOOD SPECIMENOrdering Facility: [facility] Address: [address] [place] [address] Performed By: #### 5 7021-8 ####[facility]ORATORYCLIA [id number] [address] [place] Neutrophils/100 WBC (Bld) 71.1 % Normal [facility] Comment on above: Order Comment: Speci men Type: BLOOD SPECIMENOrdering Facility: [facility] Address: [address] [place] [address] Performed By: #### 5 7021-8 ####[facility]ORATORYCLIA [id number] [address] [place] Nucleated RBC (Bld) [#/Vol] 10*3/uL Normal <0.01 [facility] Comment on above: Order Comment: Speci men Type: BLOOD SPECIMENOrdering Facility: [facility] Address: [address] [place] [address] Performed By: #### 5 7021-8 ####[facility]ORATORYCLIA [id number] [address] [place] Nucleated RBC/100 WBC (Bld) [Ratio] 0.0 /100 WBC Normal [facility] Comment on above: Order Comment: Speci men Type: BLOOD SPECIMENOrdering Facility: [facility] Address: [address] [place] [address] Performed By: #### 5 7021-8 ####[facility]ORATORYCLIA [id number] [address] [place] Platelet mean volume (Bld) [Entitic vol] 10.3 fL Normal 9.0-12.7 [facility] Comment on above: Order Comment: Speci men Type: BLOOD SPECIMENOrdering Facility: [facility] Address: [address] [place] [address] Performed By: #### 5 7021-8 ####[facility]ATORYCLIA [id number] [address] [facility] Platelets (Bld) [#/Vol] 403 10*3/uL High 150-400 [facility] Comment on above: Order Comment: Speci men Type: BLOOD SPECIMENOrdering Facility: [facility] Address: [address] [place] [address] Performed By: #### 5 7021-8 ####[facility]ORATORYCLIA [id number] [address] [place] [facility] RBC (Bld) [#/Vol] 3.40 10*6/uL Low 4.20-6.00 [facility] Comment on above: Order Comment: Speci men Type: BLOOD SPECIMENOrdering Facility: [facility] Address: [address] [place] [address] Performed By: #### 5 7021-8 ####[facility] LABORATORYCLIA [id number] [address] [facility] WBC (Bld) [#/Vol] 10.12 10*3/uL Normal 3.70-11.00 [facility] Comment on above: Order Comment: Speci men Type: BLOOD SPECIMENOrdering Facility: [facility] Address: [address] [place] [address] Performed By: #### 5 7021-8 ####[facility] LABORATORYCLIA [id number] [address] [facility] Magnesium SerPl-mCncon 07-18 Magnesium [Mass/Vol] 2.4 mg/dL High 1.7-2.3 [facility] Comment on above: Order Comment: Speci men Type: BLOOD SPECIMENOrdering Facility: [facility] Address: [address] [place] [address] Performed By: #### 2 4321-2, 41765-5, 2777-1 ####[facility] LABORATORYCLIA [id number] [address] [place] NURSING PROGon 07-18-2021 NURSING PROG Normal [facility] NURSING PROG Normal [facility] Phosphate SerPl-mCncon 07-18 Phosphate [Mass/Vol] 3.9 mg/dL Normal 2.7-4.8 [facility] Comment on above: Order Comment: Speci men Type: BLOOD SPECIMENOrdering Facility: [facility] Address: [address] [place] [address] Performed By: #### 2 4321-2, 35988-6, 2777-1 ####[facility] LABORATORYCLIA [id number] [address] THERAPY NTon 07-18-2021 THERAPY NT Normal [facility] aPTT PPPon 07-18-2021 aPTT Coag (PPP) [Time] 52.3 s High 23.0-32.4 [facility] Comment on above: Order Comment: Speci men Type: BLOOD SPECIMENOrdering Facility: [facility] Address: [address] [place] [address] Performed By: #### 1 4979-9 ####[facility] LABORATORYCLIA [id number] [address] CBC W Auto Differential pane l (Bld)on 07-17-2021 Basophils (Bld) [#/Vol] 0.05 10*3/uL Normal <0.11 [facility] Comment on above: Order Comment: Speci men Type: BLOOD SPECIMENOrdering Facility: [facility] Address: [address] [place] [address] Performed By: #### 5 7021-8 ####[facility] LABORATORYCLIA [id number] [address] Basophils/100 WBC (Bld) 0.5 % Normal [facility] Comment on above: Order Comment: Speci men Type: BLOOD SPECIMENOrdering Facility: [facility] Address: [address] [place] [address] Performed By: #### 5 7021-8 ####[facility] LABORATORYCLIA [id number] [address] Differential cell count method Nom (Bld) Auto Normal [facility] Comment on above: Order Comment: Speci men Type: BLOOD SPECIMENOrdering Facility: [facility] Address: [address] [place] [address] Performed By: #### 5 7021-8 ####[facility] LABORATORYCLIA [id number] [address] [place] Eosinophils (Bld) [#/Vol] 0.32 10*3/uL Normal <0.46 [facility] Comment on above: Order Comment: Speci men Type: BLOOD SPECIMENOrdering Facility: [facility] Address: [address] [place] [address] Performed By: #### 5 7021-8 ####[facility] LABORATORYCLIA [id number] [address] Eosinophils/100 WBC (Bld) 3.4 % Normal [facility] Comment on above: Order Comment: Speci men Type: BLOOD SPECIMENOrdering Facility: [facility] Address: [address] [place] [address] Performed By: #### 5 7021-8 ####[facility] LABORATORYCLIA [id number] [address] [place] Erythrocyte distribution width (RBC) [Ratio] 16.6 % High 11.5-15.0 [facility] Comment on above: Order Comment: Speci men Type: BLOOD SPECIMENOrdering Facility: [facility] Address: [address] [place] [address] Performed By: #### 5 7021-8 ####[facility] LABORATORYCLIA [id number] [address] Hematocrit (Bld) [Volume fraction] 30.7 % Low 39.0-51.0 [facility] Comment on above: Order Comment: Speci men Type: BLOOD SPECIMENOrdering Facility: [facility] Address: [address] [place] [place] [address] Performed By: #### 5 7021-8 ####[facility]ORATORYCLIA [id number] [address] [place] Hemoglobin (Bld) [Mass/Vol] 9.0 g/dL Low 13.0-17.0 [facility] Comment on above: Order Comment: Speci men Type: BLOOD SPECIMENOrdering Facility: [facility] Address: [address] [place] [address] Performed By: #### 5 7021-8 ####[facility]ORATORYCLIA [id number] [address] IMMATURE GRAN % 0.6 % Normal [facility] Comment on above: Order Comment: Speci men Type: BLOOD SPECIMENOrdering Facility: [facility] Address: [address] [place] [address] Performed By: #### 5 7021-8 ####[facility]ORATORYCLIA [id number] [address] IMMATURE GRAN ABS 0.06 k/uL Normal <0.10 [facility] Comment on above: Order Comment: Speci men Type: BLOOD SPECIMENOrdering Facility: [facility] Address: [address] [place] [address] Performed By: #### 5 7021-8 ####[facility]ORATORYCLIA [id number] [address] [place] Lymphocytes (Bld) [#/Vol] 1.61 10*3/uL Normal 1.00-4.00 [facility] Comment on above: Order Comment: Speci men Type: BLOOD SPECIMENOrdering Facility: [facility] Address: [address] [place] [address] Performed By: #### 5 7021-8 ####[facility]ORATORYCLIA [id number] [address] [place] Lymphocytes/100 WBC (Bld) 17.3 % Normal [facility] Comment on above: Order Comment: Speci men Type: BLOOD SPECIMENOrdering Facility: [facility] Address: [address] [place] [address] Performed By: #### 5 7021-8 ####[facility] LABORATORYCLIA [id number] [address] MCH (RBC) [Entitic mass] 26.9 pg Normal 26.0-34.0 [facility] Comment on above: Order Comment: Speci men Type: BLOOD SPECIMENOrdering Facility: [facility] Address: [address] [place] [address] Performed By: #### 5 7021-8 ####[facility] LABORATORYCLIA [id number] [address] MCHC (RBC) [Mass/Vol] 29.3 g/dL Low 30.5-36.0 [facility] Comment on above: Order Comment: Speci men Type: BLOOD SPECIMENOrdering Facility: [facility] Address: [address] [place] [address] Performed By: #### 5 7021-8 ####[facility]ORATORYCLIA [id number] [address] MCV (RBC) [Entitic vol] 91.9 fL Normal 80.0-100.0 [facility] Comment on above: Order Comment: Speci men Type: BLOOD SPECIMENOrdering Facility: [facility] Address: [address] [place] [address] Performed By: #### 5 7021-8 ####[facility]ORATORYCLIA [id number] [address] Monocytes (Bld) [#/Vol] 0.61 10*3/uL Normal <0.87 [facility] Comment on above: Order Comment: Speci men Type: BLOOD SPECIMENOrdering Facility: [facility] Address: [address] [place] [address] Performed By: #### 5 7021-8 ####[facility]ORATORYCLIA [id number] [address] [place] Monocytes/100 WBC (Bld) 6.6 % Normal [facility] Comment on above: Order Comment: Speci men Type: BLOOD SPECIMENOrdering Facility: [facility] Address: [address] [place] [address] Performed By: #### 5 7021-8 ####[facility] LABORATORYCLIA [id number] [place] [address] [place] Neutrophils (Bld) [#/Vol] 6.64 10*3/uL Normal 1.45-7.50 [facility] Comment on above: Order Comment: Speci men Type: BLOOD SPECIMENOrdering Facility: [facility] Address: [address] [place] [address] Performed By: #### 5 7021-8 ####[facility] LABORATORYCLIA [id number] [address] [place] Neutrophils/100 WBC (Bld) 71.6 % Normal [facility] Comment on above: Order Comment: Speci men Type: BLOOD SPECIMENOrdering Facility: [facility] Address: [address] [place] [address] Performed By: #### 5 7021-8 ####[facility]ORATORYCLIA [id number] [place] [address] [place] Nucleated RBC (Bld) [#/Vol] 10*3/uL Normal <0.01 [facility] Comment on above: Order Comment: Speci men Type: BLOOD SPECIMENOrdering Facility: [facility] Address: [address] [place] [address] Performed By: #### 5 7021-8 ####[facility] LABORATORYCLIA [id number] [address] [place] Nucleated RBC/100 WBC (Bld) [Ratio] 0.0 /100 WBC Normal [facility] Comment on above: Order Comment: Speci men Type: BLOOD SPECIMENOrdering Facility: [facility] Address: [address] [place] [address] Performed By: #### 5 7021-8 ####[facility]ORATORYCLIA [id number] [address] [place] Platelet mean volume (Bld) [Entitic vol] 10.1 fL Normal 9.0-12.7 [facility] Comment on above: Order Comment: Speci men Type: BLOOD SPECIMENOrdering Facility: [facility] Address: [address] [place] [address] Performed By: #### 5 7021-8 ####[facility]ORATORYCLIA [id number] [place] [address] [place] Platelets (Bld) [#/Vol] 387 10*3/uL Normal 150-400 [facility] Comment on above: Order Comment: Speci men Type: BLOOD SPECIMENOrdering Facility: [facility] Address: [address] [place] [address] Performed By: #### 5 7021-8 ####[facility]ORATORYCLIA [id number] [place] [address] [place] RBC (Bld) [#/Vol] 3.34 10*6/uL Low 4.20-6.00 [facility] Comment on above: Order Comment: Speci men Type: BLOOD SPECIMENOrdering Facility: [facility] Address: [address] [place] [address] Performed By: #### 5 7021-8 ####[facility]ORATORYCLIA [id number] [place] [address] [place] WBC (Bld) [#/Vol] 9.29 10*3/uL Normal 3.70-11.00 [facility] Comment on above: Order Comment: Speci men Type: BLOOD SPECIMENOrdering Facility: [facility] Address: [address] [place], [place] [address] Performed By: #### 5 7021-8 ####[facility]ORATORYCLIA [id number] [address] [place] CONSULT PROGon 07-17-2021 CONSULT PROG Normal [facility] Magnesium SerPl-ncon 07-17 Magnesium [Mass/Vol] 2.3 mg/dL Normal 1.7-2.3 [facility] Comment on above: Order Comment: Speci men Type: BLOOD SPECIMENOrdering Facility: [facility] Address: [address] [place] [address] Performed By: #### 2 777-1, ####[facility]ORATORYCLIA [id number] [address] NURSING PROGon 07-17-2021 NURSING PROG Normal [facility] NURSING PROG Normal [facility] NURSING PROG Normal [facility] Phosphate SerPl-mCncon 07-17 Phosphate [Mass/Vol] 3.6 mg/dL Normal 2.7-4.8 [facility] Comment on above: Order Comment: Speci men Type: BLOOD SPECIMENOrdering Facility: [facility] Address: [address] [place] [address] Performed By: #### 2 777-1, ####[facility]ORATORYCLIA [id number] [address] aPTT PPPon 07-17-2021 aPTT Coag (PPP) [Time] 57.2 s High 23.0-32.4 [facility] Comment on above: Order Comment: Speci men Type: BLOOD SPECIMENOrdering Facility: [facility] Address: [address] [place] [address] Performed By: #### 1 4979-9 ####[facility]ORATORYCLIA [id number] [place] [address] [place] Basic metabolic 2000 panelon 07-16-2021 Anion gap [Moles/Vol] 5 mmol/L Low 9-18 [facility] Comment on above: Order Comment: Speci men Type: BLOOD SPECIMENOrdering Facility: [facility] Address: [address] [place] [address] Performed By: #### 2 777-1, , ####[facility] LABORATORYCLIA [id number] [place] [address] [place] Calcium [Mass/Vol] 9.1 mg/dL Normal 8.5-10.2 [facility] Comment on above: Order Comment: Speci men Type: BLOOD SPECIMENOrdering Facility: [facility] Address: [address] [place] [address] Performed By: #### 2 777-1, , ####[facility] LABORATORYCLIA [id number] [place] [address] [place] Chloride [Moles/Vol] 101 mmol/L Normal 97-105 [facility] Comment on above: Order Comment: Speci men Type: BLOOD SPECIMENOrdering Facility: [facility] Address: [address] [place] [address] Performed By: #### 2 777-1, , ####[facility]ORATORYCLIA [id number] [place] [address] [place] CO2 [Moles/Vol] 35 mmol/L High 22-30 [facility] Comment on above: Order Comment: Speci men Type: BLOOD SPECIMENOrdering Facility: [facility] Address: [address] [place] [address] Performed By: #### 2 777-1, , ####[facility]ORATORYCLIA [id number] [place] [address] [place] Creatinine [Mass/Vol] 0.73 mg/dL Normal 0.73-1.22 [facility] Comment on above: Order Comment: Speci men Type: BLOOD SPECIMENOrdering Facility: [facility] Address: [address] [place] [address] Performed By: #### 2 777-1, , ####[facility] LABORATORYCLIA [id number] [address] [place] ESTIMATED GLOMERULAR FILTRATION RATE 98 mL/min/1.73m??? Normal >=60 [facility] Comment on above: Order Comment: Shira feldman Type: BLOOD SPECIMENOrdering Facility: [facility] Address: [address] [place] [address] Result Comment: Luzmaria mated Glomerular Filtration Rate [...] actual GFR. Performed By: #### 2 777-1, 28054-4, ####[facility]CL[facility] [id number] [place] [address] [place] Glucose [Mass/Vol] 133 mg/dL High 74-99 [facility] Comment on above: Order Comment: Shira feldman Type: BLOOD SPECIMENOrdering Facility: [facility] Address: [address] [place] [address] Result Comment: The [employer] [place] [employer] (ADA) provides guidance for cutoff [...] Standards of Medical Care in Diabetes 2016, [employer] [place] [employer]. Diabetes Care. 2016.39(Suppl 1). Performed By: #### 2 777-1, 56816-2, 68520-8 ####[facility] LABORATORYCLIA [id number] [place] [id number] [place] Potassium [Moles/Vol] 4.2 mmol/L Normal 3.7-5.1 [facility] Comment on above: Order Comment: Speci men Type: BLOOD SPECIMENOrdering Facility: [facility] Address: [address] [place] [address] Performed By: #### 2 777-1, 32968-6, 64875-5 ####[facility] LABORATORYCLIA [id number] [address] [place] [facility] Sodium [Moles/Vol] 141 mmol/L Normal 136-144 [facility] Comment on above: Order Comment: Speci men Type: BLOOD SPECIMENOrdering Facility: [facility] Address: [address] [place] [address] Performed By: #### 2 777-1, 02175-8, ####[facility]ORATORYCLIA [id number] [address] [place] Urea nitrogen [Mass/Vol] 21 mg/dL Normal 9-24 [facility] Comment on above: Order Comment: Speci men Type: BLOOD SPECIMENOrdering Facility: [facility] Address: [address] [place] [address] Performed By: #### 2 777-1, 72522-8, ####[facility]ORATORYCLIA [id number] [address] [place] CBC W Auto Differential pane l (Bld)on 07-16-2021 Basophils (Bld) [#/Vol] 0.06 10*3/uL Normal <0.11 [facility] Comment on above: Order Comment: Speci men Type: BLOOD SPECIMENOrdering Facility: [facility] Address: [address] [place] [address] Performed By: #### 5 7021-8 ####[facility]ORATORYCLIA [id number] [address] Basophils/100 WBC (Bld) 0.7 % Normal [facility] Comment on above: Order Comment: Speci men Type: BLOOD SPECIMENOrdering Facility: [facility] Address: [address] [place] [address] Performed By: #### 5 7021-8 ####[facility]ORATORYCLIA [id number] [address] Differential cell count method Nom (Bld) Auto Normal [facility] Comment on above: Order Comment: Speci men Type: BLOOD SPECIMENOrdering Facility: [facility] Address: [address] [place] [address] Performed By: #### 5 7021-8 ####[facility]ORATORYCLIA [id number] [address] Eosinophils (Bld) [#/Vol] 0.35 10*3/uL Normal <0.46 [facility] Comment on above: Order Comment: Speci men Type: BLOOD SPECIMENOrdering Facility: [facility] Address: [address] [place] [address] Performed By: #### 5 7021-8 ####[facility]ORATORYCLIA [id number] [address] Eosinophils/100 WBC (Bld) 3.9 % Normal [facility] Comment on above: Order Comment: Speci men Type: BLOOD SPECIMENOrdering Facility: [facility] Address: [address] [place] [address] Performed By: #### 5 7021-8 ####[facility]ORATORYCLIA [id number] [address] Erythrocyte distribution width (RBC) [Ratio] 16.5 % High 11.5-15.0 [facility] Comment on above: Order Comment: Speci men Type: BLOOD SPECIMENOrdering Facility: [facility] Address: [address] [place] [address] Performed By: #### 5 7021-8 ####[facility]ORATORYCLIA [id number] [address] Hematocrit (Bld) [Volume fraction] 30.9 % Low 39.0-51.0 [facility] Comment on above: Order Comment: Speci men Type: BLOOD SPECIMENOrdering Facility: [facility] Address: [address] [place] [address] Performed By: #### 5 7021-8 ####[facility]ORATORYCLIA [id number] [address] [place] Hemoglobin (Bld) [Mass/Vol] 9.1 g/dL Low 13.0-17.0 [facility] Comment on above: Order Comment: Speci men Type: BLOOD SPECIMENOrdering Facility: [facility] Address: [address] [place] [address] Performed By: #### 5 7021-8 ####[facility]ORATORYCLIA [id number] [address] IMMATURE GRAN % 0.4 % Normal [facility] Comment on above: Order Comment: Speci men Type: BLOOD SPECIMENOrdering Facility: [facility] Address: [address] [place] [address] Performed By: #### 5 7021-8 ####[facility]ORATORYCLIA [id number] [address] IMMATURE GRAN ABS 0.04 k/uL Normal <0.10 [facility] Comment on above: Order Comment: Speci men Type: BLOOD SPECIMENOrdering Facility: [facility] Address: [address] [place] [address] Performed By: #### 5 7021-8 ####[facility]ORATORYCLIA [id number] [address] [place] Lymphocytes (Bld) [#/Vol] 1.35 10*3/uL Normal 1.00-4.00 [facility] Comment on above: Order Comment: Speci men Type: BLOOD SPECIMENOrdering Facility: [facility] Address: [address] [place] [address] Performed By: #### 5 7021-8 ####[facility]ORATORYCLIA [id number] [address] Lymphocytes/100 WBC (Bld) 15.0 % Normal [facility] Comment on above: Order Comment: Speci men Type: BLOOD SPECIMENOrdering Facility: [facility] Address: [address] [place] [address] Performed By: #### 5 7021-8 ####[facility]ORATORYCLIA [id number] [address] MCH (RBC) [Entitic mass] 27.1 pg Normal 26.0-34.0 [facility] Comment on above: Order Comment: Speci men Type: BLOOD SPECIMENOrdering Facility: [facility] Address: [address] [place] [address] Performed By: #### 5 7021-8 ####[facility] LABORATORYCLIA [id number] [address] [place] [facility] MCHC (RBC) [Mass/Vol] 29.4 g/dL Low 30.5-36.0 [facility] Comment on above: Order Comment: Speci men Type: BLOOD SPECIMENOrdering Facility: [facility] Address: [address] [place] [address] Performed By: #### 5 7021-8 ####[facility]ORATORYCLIA [id number] [address] MCV (RBC) [Entitic vol] 92.0 fL Normal 80.0-100.0 [facility] Comment on above: Order Comment: Speci men Type: BLOOD SPECIMENOrdering Facility: [facility] Address: [address] [place] [address] Performed By: #### 5 7021-8 ####[facility]ORATORYCLIA [id number] [address] Monocytes (Bld) [#/Vol] 0.53 10*3/uL Normal <0.87 [facility] Comment on above: Order Comment: Speci men Type: BLOOD SPECIMENOrdering Facility: [facility] Address: [address] [place] [address] Performed By: #### 5 7021-8 ####[facility]ORATORYCLIA [id number] [address] [place] Monocytes/100 WBC (Bld) 5.9 % Normal [facility] Comment on above: Order Comment: Speci men Type: BLOOD SPECIMENOrdering Facility: [facility] Address: [address] [place] [address] Performed By: #### 5 7021-8 ####[facility] LABORATORYCLIA [id number] [place] [address] [place] Neutrophils (Bld) [#/Vol] 6.67 10*3/uL Normal 1.45-7.50 [facility] Comment on above: Order Comment: Speci men Type: BLOOD SPECIMENOrdering Facility: [facility] Address: [address] [place] [address] Performed By: #### 5 7021-8 ####[facility]ORATORYCLIA [id number] [address] [place] Neutrophils/100 WBC (Bld) 74.1 % Normal [facility] Comment on above: Order Comment: Speci men Type: BLOOD SPECIMENOrdering Facility: [facility] Address: [address] [place] [address] Performed By: #### 5 7021-8 ####[facility]ORATORYCLIA [id number] [place] [address] [place] Nucleated RBC (Bld) [#/Vol] 10*3/uL Normal <0.01 [facility] Comment on above: Order Comment: Speci men Type: BLOOD SPECIMENOrdering Facility: [facility] Address: [address] [place] [address] Performed By: #### 5 7021-8 ####[facility] LABORATORYCLIA [id number] [address] [place] Nucleated RBC/100 WBC (Bld) [Ratio] 0.0 /100 WBC Normal [facility] Comment on above: Order Comment: Speci men Type: BLOOD SPECIMENOrdering Facility: [facility] Address: [address] [place] [address] Performed By: #### 5 7021-8 ####[facility] LABORATORYCLIA [id number] [place] Platelet mean volume (Bld) [Entitic vol] 9.9 fL Normal 9.0-12.7 [facility] Comment on above: Order Comment: Speci men Type: BLOOD SPECIMENOrdering Facility: [facility] Address: [address] [place] [address] Performed By: #### 5 7021-8 ####[facility] LABORATORYCLIA [id number] [place] [address] [place] Platelets (Bld) [#/Vol] 391 10*3/uL Normal 150-400 [facility] Comment on above: Order Comment: Speci men Type: BLOOD SPECIMENOrdering Facility: [facility] Address: [address] [place] [address] Performed By: #### 5 7021-8 ####[facility] LABORATORYCLIA [id number] [place] [address] [place] RBC (Bld) [#/Vol] 3.36 10*6/uL Low 4.20-6.00 [facility] Comment on above: Order Comment: Speci men Type: BLOOD SPECIMENOrdering Facility: [facility] Address: [address] [place] [address] Performed By: #### 5 7021-8 ####[facility] LABORATORYCLIA [id number] [place] [address] [place] WBC (Bld) [#/Vol] 9.00 10*3/uL Normal 3.70-11.00 [facility] Comment on above: Order Comment: Speci men Type: BLOOD SPECIMENOrdering Facility: [facility] Address: [address] [place] [address] Performed By: #### 5 7021-8 ####[facility] LABORATORYCLIA [id number] [address] [place] CONSULT PROGon 07-16-2021 CONSULT PROG Normal [facility] CONSULT PROG Normal [facility] Magnesium SerPl-mCncon 07-16 Magnesium [Mass/Vol] 2.3 mg/dL Normal 1.7-2.3 [facility] Comment on above: Order Comment: Speci men Type: BLOOD SPECIMENOrdering Facility: [facility] Address: [address] [place] [address] Performed By: #### 2 777-1, 44638-5, 58081-5 ####[facility] LABORATORYCLIA [id number] [address] [place] NURSING PROGon 07-16-2021 NURSING PROG Normal [facility] Phosphate SerPl-mCncon 07-16 Phosphate [Mass/Vol] 3.6 mg/dL Normal 2.7-4.8 [facility] Comment on above: Order Comment: Speci men Type: BLOOD SPECIMENOrdering Facility: [facility] Address: [address] [place] [address] Performed By: #### 2 777-1, 09849-6, 52207-0 ####[facility] LABORATORYCLIA [id number] [address] [place] Vancomycin random [Mass/Vol] on 07-16-2021 Vancomycin [Mass/Vol] 16.9 ug/mL Normal 10.0-20.0 [facility] Comment on above: Order Comment: Speci men Type: BLOOD SPECIMENOrdering Facility: [facility] Address: [address] [place] [address] Result Comment: Refe rence ranges and high/low indicator flags are provided as general guidelines only. The treating physician must determine appropriate target levels/dosing based on the specific clinical situation. Performed By: #### 4 091-5 ####[facility] LABORATORYCLIA [id number] [address] [place] aPTT PPPon 07-16-2021 aPTT Coag (PPP) [Time] 57.2 s High 23.0-32.4 [facility] Comment on above: Order Comment: Speci men Type: BLOOD SPECIMENOrdering Facility: [facility] Address: [address] [place] [address] Performed By: #### 1 4979-9 ####[facility] LABORATORYCLIA [id number] [place] [address] [place] ALLIED HEALTHon 07-15-2021 ALLIED HEALTH Normal [facility] Basic metabolic 2000 panelon 07-15-2021 Anion gap [Moles/Vol] 11 mmol/L Normal 9-18 [facility] Comment on above: Order Comment: Speci men Type: BLOOD SPECIMENOrdering Facility: [facility] Address: [address] [place] [address] Performed By: #### 2 4321-2, , 2776-05 ####[facility] LABORATORYCLIA [id number] [place] [address] [place] Calcium [Mass/Vol] 8.8 mg/dL Normal 8.5-10.2 [facility] Comment on above: Order Comment: Speci men Type: BLOOD SPECIMENOrdering Facility: [facility] Address: [address] [place] [address] Performed By: #### 2 4321-2, , 2776-05 ####[facility] LABORATORYCLIA [id number] [place] [address] [place] Chloride [Moles/Vol] 101 mmol/L Normal 97-105 [facility] Comment on above: Order Comment: Speci men Type: BLOOD SPECIMENOrdering Facility: [facility] Address: [address] [place], [place] [address] Performed By: #### 2 4321-2, , 2776-05 ####[facility] LABORATORYCLIA [id number] [place] [address] [place] CO2 [Moles/Vol] 31 mmol/L High 22-30 [facility] Comment on above: Order Comment: Speci men Type: BLOOD SPECIMENOrdering Facility: [facility] Address: [address] [place], [place] [address] Performed By: #### 2 4321-2, 96327-7, 2776-05 ####[facility]IA [id number] [place] [id number] [place] [facility] Creatinine [Mass/Vol] 0.76 mg/dL Normal 0.73-1.22 [facility] Comment on above: Order Comment: Speccara feldman Type: BLOOD SPECIMENOrdering Facility: [facility] Address: [address] [place] [address] Performed By: #### 2 4321-2, , 2776-05 ####[facility]ITALCLIA [id number] [place] [id number] [facility] ESTIMATED GLOMERULAR FILTRATION RATE 97 mL/min/1.73m??? Normal >=60 [facility] Comment on above: Order Comment: Speccara feldman Type: BLOOD SPECIMENOrdering Facility: [facility] Address: [address] [place] [address] Result Comment: Luzamria mated Glomerular Filtration Rate (eGFR) is calculated [...] 4321-2, , 2776-05 ####[facility] LABORATORYCLIA [id number] [place] [id number] [place] Glucose [Mass/Vol] 115 mg/dL High 74-99 [facility] Comment on above: Order Comment: Speci men Type: BLOOD SPECIMENOrdering Facility: [facility] Address: [address] Result Comment: The [place] [employer] (ADA) provides guidance for cutoff [...] Standards of Medical Care in Diabetes 2016, [employer] [place] [employer]. Diabetes Care. 2016.39(Suppl 1). Performed By: #### 2 4321-2, , 2776-05 ####[facility] LABORATORYCLIA [id number] [place] [address] [place] Potassium [Moles/Vol] 4.0 mmol/L Normal 3.7-5.1 [facility] Comment on above: Order Comment: Shira feldman Type: BLOOD SPECIMENOrdering Facility: [facility] Address: [address] [place] [address] Performed By: #### 2 432-2, , 2776-05 ####[facility] LABORATORYCLIA [id number] [address] [place] Sodium [Moles/Vol] 143 mmol/L Normal 136-144 [facility] Comment on above: Order Comment: Shira feldman Type: BLOOD SPECIMENOrdering Facility: [facility] Address: [address] [place] [address] Performed By: #### 2 4321-2, , 2776-05 ####[facility] LABORATORYCLIA [id number] [place] [address] [place] Urea nitrogen [Mass/Vol] 17 mg/dL Normal 9-24 [facility] Comment on above: Order Comment: Johni francia Type: BLOOD SPECIMENOrdering Facility: [facility] Address: [address] [place] [address] Performed By: #### 2 4321-2, , 2776-05 ####[facility] LABORATORYCLIA [id number] [place] [address] [place] CASE MANAGEMon 07-15-2021 CASE MANAGEM Normal [facility] CBC panel Auto (Bld)on 07-15 Erythrocyte distribution width (RBC) [Ratio] 16.4 % High 11.5-15.0 [facility] Comment on above: Order Comment: Speci men Type: BLOOD SPECIMENOrdering Facility: [facility] Address: [address] [place] [address] Performed By: #### 5 8410-2 ####[facility] LABORATORYCLIA [id number] [address] Hematocrit (Bld) [Volume fraction] 30.3 % Low 39.0-51.0 [facility] Comment on above: Order Comment: Speci men Type: BLOOD SPECIMENOrdering Facility: [facility] Address: [address] [place] [address] Performed By: #### 5 8410-2 ####[facility] LABORATORYCLIA [id number] [address] [facility] Hemoglobin (Bld) [Mass/Vol] 9.2 g/dL Low 13.0-17.0 [facility] Comment on above: Order Comment: Speci men Type: BLOOD SPECIMENOrdering Facility: [facility] Address: [address] [place] [address] Performed By: #### 5 8410-2 ####[facility] LABORATORYCLIA [id number] [address] [place] [facility] MCH (RBC) [Entitic mass] 28.3 pg Normal 26.0-34.0 [facility] Comment on above: Order Comment: Speci men Type: BLOOD SPECIMENOrdering Facility: [facility] Address: [address] [place] [address] Performed By: #### 5 8410-2 ####[facility] LABORATORYCLIA [id number] [address] [place] MCHC (RBC) [Mass/Vol] 30.4 g/dL Low 30.5-36.0 [facility] Comment on above: Order Comment: Speci men Type: BLOOD SPECIMENOrdering Facility: [facility] Address: [address] [place] [address] Performed By: #### 5 8410-2 ####[facility] LABORATORYCLIA [id number] [address] MCV (RBC) [Entitic vol] 93.2 fL Normal 80.0-100.0 [facility] Comment on above: Order Comment: Speci men Type: BLOOD SPECIMENOrdering Facility: [facility] Address: [address] [place] [address] Performed By: #### 5 8410-2 ####[facility] LABORATORYCLIA [id number] [address] Nucleated RBC (Bld) [#/Vol] 10*3/uL Normal <0.01 [facility] Comment on above: Order Comment: Speci men Type: BLOOD SPECIMENOrdering Facility: [facility] Address: [address] [place] [address] Performed By: #### 5 8410-2 ####[facility] LABORATORYCLIA [id number] [address] Platelet mean volume (Bld) [Entitic vol] 9.9 fL Normal 9.0-12.7 [facility] Comment on above: Order Comment: Speci men Type: BLOOD SPECIMENOrdering Facility: [facility] Address: [address] [place] [address] Performed By: #### 5 8410-2 ####[facility] LABORATORYCLIA [id number] [address] Platelets (Bld) [#/Vol] 381 10*3/uL Normal 150-400 [facility] Comment on above: Order Comment: Speci men Type: BLOOD SPECIMENOrdering Facility: [facility] Address: [address] [place] [address] Performed By: #### 5 8410-2 ####[facility] LABORATORYCLIA [id number] [place] [address] [place] RBC (Bld) [#/Vol] 3.25 10*6/uL Low 4.20-6.00 [facility] Comment on above: Order Comment: Speci men Type: BLOOD SPECIMENOrdering Facility: [facility] Address: [address] [place] [address] Performed By: #### 5 8410-2 ####[facility] LABORATORYCLIA [id number] [address] [place] WBC (Bld) [#/Vol] 8.80 10*3/uL Normal 3.70-11.00 [facility] Comment on above: Order Comment: Speci men Type: BLOOD SPECIMENOrdering Facility: [facility] Address: [address] [place] [address] Performed By: #### 5 8410-2 ####[facility] LABORATORYCLIA [id number] [address] Magnesium SerPl-mCncon 07-15 Magnesium [Mass/Vol] 2.2 mg/dL Normal 1.7-2.3 [facility] Comment on above: Order Comment: Speci men Type: BLOOD SPECIMENOrdering Facility: [facility] Address: [address] [place] [address] Performed By: #### 2 4321-2, , 2777-1 ####[facility] LABORATORYCLIA [id number] [address] [place] NURSING PROGon 07-15-2021 NURSING PROG Normal [facility] NURSING PROG Normal [facility] NURSING PROG Normal [facility] NUTRITIONon 07-15-2021 NUTRITION Normal [facility] Phosphate SerPl-mCncon 07-15 Phosphate [Mass/Vol] 3.4 mg/dL Normal 2.7-4.8 [facility] Comment on above: Order Comment: Speci men Type: BLOOD SPECIMENOrdering Facility: [facility] Address: [address] [place] [address] Performed By: #### 2 4321-2, , 2777-1 ####[facility] LABORATORYCLIA [id number] [place] [address] [place] THERAPY NTon 07-15-2021 THERAPY NT Normal [facility] US DVT UPPER LTon 07-15-2021 US DVT UPPER LT Normal [facility] XR CHEST 1V FRONTALon 2021 XR CHEST 1V FRONTAL Normal [facility] aPTT PPPon 07-15-2021 aPTT Coag (PPP) [Time] 59.9 s High 23.0-32.4 [facility] Comment on above: Order Comment: Speci men Type: BLOOD SPECIMENOrdering Facility: [facility] Address: [address] [place] [address] Performed By: #### 1 4979-9 ####[facility] LABORATORYCLIA [id number] [place] [address] [place] Basic metabolic 2000 panelon 07-14-2021 Anion gap [Moles/Vol] 9 mmol/L Normal 9-18 [facility] Comment on above: Order Comment: Speci men Type: BLOOD SPECIMENOrdering Facility: [facility] Address: [address] [place] [address] Performed By: #### 1 9123-9, 2777-, 44230-6 ####[facility] LABORATORYCLIA [id number] [place] [address] [place] Calcium [Mass/Vol] 8.5 mg/dL Normal 8.5-10.2 [facility] Comment on above: Order Comment: Speci men Type: BLOOD SPECIMENOrdering Facility: [facility] Address: [address] [place] [address] Performed By: #### 1 9123-9, 2777-, 11956-5 ####[facility] LABORATORYCLIA [id number] [place] [address] [place] Chloride [Moles/Vol] 99 mmol/L Normal 97-105 [facility] Comment on above: Order Comment: Speci men Type: BLOOD SPECIMENOrdering Facility: [facility] Address: [address] [place] [address] Performed By: #### 1 9123-9, 2777-1, 85253-3 ####[facility]ITALIA [id number] [address] CO2 [Moles/Vol] 31 mmol/L High 22-30 [facility] Comment on above: Order Comment: Speci men Type: BLOOD SPECIMENOrdering Facility: [facility] Address: [address] [place] [address] Performed By: #### 1 9123-9, 2777, 39188-5 ####[facility] HOSPITALIA [id number] [address] Creatinine [Mass/Vol] 0.74 mg/dL Normal 0.73-1.22 [facility] Comment on above: Order Comment: Speci men Type: BLOOD SPECIMENOrdering Facility: [facility] Address: [address] [place] [address] Performed By: #### 1 9123-9, 2777, 64880-0 ####[facility] HOSPITALIA [id number] [address] ESTIMATED GLOMERULAR FILTRATION RATE 98 mL/min/1.73m??? Normal >=60 [facility] Comment on above: Order Comment: Speci men Type: BLOOD SPECIMENOrdering Facility: [facility] Address: [address] [place] [address] Result Comment: Luzmaria mated Glomerular Filtration Rate [...] GFR. Performed By: #### 1 9123-9, 2777-1, 24258-9 ####[facility] LABORATORYCLIA [id number] [place] [address] [place] Glucose [Mass/Vol] 117 mg/dL High 74-99 [facility] Comment on above: Order Comment: Speci men Type: BLOOD SPECIMENOrdering Facility: [facility] Address: [address] [place] [address] Result Comment: The [employer] [place] [employer] (ADA) provides guidance for cutoff [...] Standards of Medical Care in Diabetes 2016, [employer] [place] [employer]. Diabetes Care. 2016.39(Suppl 1). Performed By: #### 1 9123-9, 2777-, 30675-7 ####[facility] LABORATORYCLIA [id number] [place] [address] [place] Potassium [Moles/Vol] 3.7 mmol/L Normal 3.7-5.1 [facility] Comment on above: Order Comment: Shira feldman Type: BLOOD SPECIMENOrdering Facility: [facility] Address: [address] [place], [place] [address] Performed By: #### 1 9123-9, 2777-, 74901-9 ####[facility] LABORATORYCLIA [id number] [place] [address] [place] Sodium [Moles/Vol] 139 mmol/L Normal 136-144 [facility] Comment on above: Order Comment: Shira francia Type: BLOOD SPECIMENOrdering Facility: [facility] Address: [address] [place] [address] Performed By: #### 1 9123-9, 2777-1, 04334-2 ####[facility] LABORATORYCLIA [id number] [place] [address] [place] Urea nitrogen [Mass/Vol] 16 mg/dL Normal 9-24 [facility] Comment on above: Order Comment: Speci men Type: BLOOD SPECIMENOrdering Facility: [facility] Address: [address] [place] [address] Performed By: #### 1 9123-9, 2777-1, 19457-2 ####[facility] LABORATORYCLIA [id number] [address] [place] [facility] CBC panel Auto (Bld)on 07-14 Erythrocyte distribution width (RBC) [Ratio] 16.2 % High 11.5-15.0 [facility] Comment on above: Order Comment: Speci men Type: BLOOD SPECIMENOrdering Facility: [facility] Address: [address] [place] [address] Performed By: #### 5 8410-2 ####[facility] LABORATORYCLIA [id number] [address] [place] Hematocrit (Bld) [Volume fraction] 29.7 % Low 39.0-51.0 [facility] Comment on above: Order Comment: Speci men Type: BLOOD SPECIMENOrdering Facility: [facility] Address: [address] [place] [address] Performed By: #### 5 8410-2 ####[facility] LABORATORYCLIA [id number] [address] [place] [facility] Hemoglobin (Bld) [Mass/Vol] 8.8 g/dL Low 13.0-17.0 [facility] Comment on above: Order Comment: Speci men Type: BLOOD SPECIMENOrdering Facility: [facility] Address: [address] [place] [address] Performed By: #### 5 8410-2 ####[facility] LABORATORYCLIA [id number] [address] [place] MCH (RBC) [Entitic mass] 27.5 pg Normal 26.0-34.0 [facility] Comment on above: Order Comment: Speci men Type: BLOOD SPECIMENOrdering Facility: [facility] Address: [address] [place] [address] Performed By: #### 5 8410-2 ####[facility] LABORATORYCLIA [id number] [address] MCHC (RBC) [Mass/Vol] 29.6 g/dL Low 30.5-36.0 [facility] Comment on above: Order Comment: Speci men Type: BLOOD SPECIMENOrdering Facility: [facility] Address: [address] [place] [address] Performed By: #### 5 8410-2 ####[facility] LABORATORYCLIA [id number] [address] MCV (RBC) [Entitic vol] 92.8 fL Normal 80.0-100.0 [facility] Comment on above: Order Comment: Speci men Type: BLOOD SPECIMENOrdering Facility: [facility] Address: [address] [place] [address] Performed By: #### 5 8410-2 ####[facility] LABORATORYCLIA [id number] [address] Nucleated RBC (Bld) [#/Vol] 10*3/uL Normal <0.01 [facility] Comment on above: Order Comment: Speci men Type: BLOOD SPECIMENOrdering Facility: [facility] Address: [address] [place] [address] Performed By: #### 5 8410-2 ####[facility] LABORATORYCLIA [id number] [address] Platelet mean volume (Bld) [Entitic vol] 9.6 fL Normal 9.0-12.7 [facility] Comment on above: Order Comment: Speci men Type: BLOOD SPECIMENOrdering Facility: [facility] Address: [address] [place] [address] Performed By: #### 5 8410-2 ####[facility] LABORATORYCLIA [id number] [address] Platelets (Bld) [#/Vol] 354 10*3/uL Normal 150-400 [facility] Comment on above: Order Comment: Speci men Type: BLOOD SPECIMENOrdering Facility: [facility] Address: [address] [place] [address] Performed By: #### 5 8410-2 ####[facility] LABORATORYCLIA [id number] [place] [address] [place] RBC (Bld) [#/Vol] 3.20 10*6/uL Low 4.20-6.00 [facility] Comment on above: Order Comment: Speci men Type: BLOOD SPECIMENOrdering Facility: [facility] Address: [address] [place] [address] Performed By: #### 5 8410-2 ####[facility] LABORATORYCLIA [id number] [address] WBC (Bld) [#/Vol] 9.41 10*3/uL Normal 3.70-11.00 [facility] Comment on above: Order Comment: Speci men Type: BLOOD SPECIMENOrdering Facility: [facility] Address: [address] [place] [address] Performed By: #### 5 8410-2 ####[facility] LABORATORYCLIA [id number] [address] [facility] CONSULT PROGon 07-14-2021 CONSULT PROG Normal [facility] Magnesium SerPl-mCncon 07-14 Magnesium [Mass/Vol] 2.2 mg/dL Normal 1.7-2.3 [facility] Comment on above: Order Comment: Speci men Type: BLOOD SPECIMENOrdering Facility: [facility] Address: [address] [place] [address] Performed By: #### 1 9123-9, 2777-1, 95060-2 ####[facility] LABORATORYCLIA [id number] [address] [place] NURSING PROGon 07-14-2021 NURSING PROG Normal [facility] Phosphate SerPl-mCncon 07-14 Phosphate [Mass/Vol] 3.6 mg/dL Normal 2.7-4.8 [facility] Comment on above: Order Comment: Speci men Type: BLOOD SPECIMENOrdering Facility: [facility] Address: [address] [place] [address] Performed By: #### 1 9123-9, 2777-1, 78446-1 ####[facility] LABORATORYCLIA [id number] [address] aPTT PPPon 07-14-2021 aPTT Coag (PPP) [Time] 62.9 s High 23.0-32.4 [facility] Comment on above: Order Comment: Speci men Type: BLOOD SPECIMENOrdering Facility: [facility] Address: [address] [place] [address] Performed By: #### 1 4979-9 ####[facility] [id number] [address] aPTT Coag (PPP) [Time] 55.2 s High 23.0-32.4 [facility] Comment on above: Order Comment: Speci men Type: BLOOD SPECIMENOrdering Facility: [facility] Address: [address] [place] [address] Performed By: #### 1 4979-9 ####[facility] [id number] [address] [place] Basic metabolic 2000 panelon 07-13-2021 Anion gap [Moles/Vol] 10 mmol/L Normal 9-18 [facility] Comment on above: Order Comment: Speci men Type: BLOOD SPECIMENOrdering Facility: [facility] Address: [address] [place] [address] Performed By: #### 1 9123-9, 2777-1, 18299-1 ####[facility] LABORATORYCLIA [id number] [address] [facility] Calcium [Mass/Vol] 8.5 mg/dL Normal 8.5-10.2 [facility] Comment on above: Order Comment: Speci men Type: BLOOD SPECIMENOrdering Facility: [facility] Address: [address] [place] [address] Performed By: #### 1 9123-9, 27711-04, 45766-0 ####[facility] LABORATORYCLIA [id number] [address] [place] Chloride [Moles/Vol] 98 mmol/L Normal 97-105 [facility] Comment on above: Order Comment: Speci men Type: BLOOD SPECIMENOrdering Facility: [facility] Address: [address] [place] [address] Performed By: #### 1 9123-9, 2776-05, 71770-7 ####[facility] LABORATORYCLIA [id number] [address] [place] CO2 [Moles/Vol] 32 mmol/L High 22-30 [facility] Comment on above: Order Comment: Speci men Type: BLOOD SPECIMENOrdering Facility: [facility] Address: [address] [place] [address] Performed By: #### 1 9123-9, 2776-05, ####[facility]ORATORYCLIA [id number] [address] [place] OF [facility] Creatinine [Mass/Vol] 0.75 mg/dL Normal 0.73-1.22 [facility] Comment on above: Order Comment: Speci men Type: BLOOD SPECIMENOrdering Facility: [facility] Address: [address] [place] [address] Performed By: #### 1 9123-9, 27711-04, 10741-3 ####[facility] LABORATORYCLIA [id number] [address] ESTIMATED GLOMERULAR FILTRATION RATE 98 mL/min/1.73m??? Normal >=60 [facility] Comment on above: Order Comment: Speci men Type: BLOOD SPECIMENOrdering Facility: [facility] Address: [address] [place] [address] Result Comment: Luzmaria mated Glomerular Filtration Rate [...] GFR. Performed By: #### 1 9123-9, 2777-, 35088-9 ####[facility]ITALIA [id number] [place] [address] [place] Glucose [Mass/Vol] 118 mg/dL High 74-99 [facility] Comment on above: Order Comment: Shira feldman Type: BLOOD SPECIMENOrdering Facility: [facility] Address: [address] [place] [address] Result Comment: The [employer] [place] [employer] (ADA) provides guidance for cutoff [...] Standards of Medical Care in Diabetes 2016, [employer]. Diabetes Care. 2016.39(Suppl 1). Performed By: #### 1 9123-9, 2777-, 93604-0 ####[facility]PITALIA [id number] [place] [address] [place] Potassium [Moles/Vol] 3.6 mmol/L Low 3.7-5.1 [facility] Comment on above: Order Comment: Shira feldman Type: BLOOD SPECIMENOrdering Facility: [facility] Address: [address] [place], [place] [address] Performed By: #### 1 9123-9, 2777-, 55595-0 ####[facility] LABORATORYCLIA [id number] [place], [place] [address] [place] [address] [place] Sodium [Moles/Vol] 140 mmol/L Normal 136-144 [facility] Comment on above: Order Comment: Speci men Type: BLOOD SPECIMENOrdering Facility: [facility] Address: [address] [place] [address] Performed By: #### 1 9123-9, 2777-, 86211-5 ####[facility]ORATORYCLIA [id number] [address] [place] Urea nitrogen [Mass/Vol] 15 mg/dL Normal 9-24 [facility] Comment on above: Order Comment: Speci men Type: BLOOD SPECIMENOrdering Facility: [facility] Address: [address] [place] [address] Performed By: #### 1 9123-9, 2777, 52319-9 ####[facility]ORATORYCLIA [id number] [address] CASE MANAGEMon 07-13-2021 CASE MANAGEM Normal [facility] CBC panel Auto (Bld)on 07-13 Erythrocyte distribution width (RBC) [Ratio] 16.2 % High 11.5-15.0 [facility] Comment on above: Order Comment: Speci men Type: BLOOD SPECIMENOrdering Facility: [facility] Address: [address] [place] [address] Performed By: #### 5 8410-2 ####[facility]ORATORYCLIA [id number] [address] STATES [facility] Hematocrit (Bld) [Volume fraction] 29.5 % Low 39.0-51.0 [facility] Comment on above: Order Comment: Speci men Type: BLOOD SPECIMENOrdering Facility: [facility] Address: [address] [place] [address] Performed By: #### 5 8410-2 ####[facility]ORATORYCLIA [id number] [address] [place] Hemoglobin (Bld) [Mass/Vol] 8.9 g/dL Low 13.0-17.0 [facility] Comment on above: Order Comment: Speci men Type: BLOOD SPECIMENOrdering Facility: [facility] Address: [address] [place] [address] Performed By: #### 5 8410-2 ####[facility]ORATORYCLIA [id number] [address] MCH (RBC) [Entitic mass] 27.8 pg Normal 26.0-34.0 [facility] Comment on above: Order Comment: Speci men Type: BLOOD SPECIMENOrdering Facility: [facility] Address: [address] [place] [address] Performed By: #### 5 8410-2 ####[facility]ORATORYCLIA [id number] [address] MCHC (RBC) [Mass/Vol] 30.2 g/dL Low 30.5-36.0 [facility] Comment on above: Order Comment: Speci men Type: BLOOD SPECIMENOrdering Facility: [facility] Address: [address] [place] [address] Performed By: #### 5 8410-2 ####[facility]ORATORYCLIA [id number] [address] MCV (RBC) [Entitic vol] 92.2 fL Normal 80.0-100.0 [facility] Comment on above: Order Comment: Speci men Type: BLOOD SPECIMENOrdering Facility: [facility] Address: [address] [place] [address] Performed By: #### 5 8410-2 ####[facility]ORATORYCLIA [id number] [address] Nucleated RBC (Bld) [#/Vol] 10*3/uL Normal <0.01 [facility] Comment on above: Order Comment: Speci men Type: BLOOD SPECIMENOrdering Facility: [facility] Address: [address] Performed By: #### 5 8410-2 ####[facility]ORATORYCLIA [id number] [address] [place] [facility] Platelet mean volume (Bld) [Entitic vol] 9.8 fL Normal 9.0-12.7 [facility] Comment on above: Order Comment: Speci men Type: BLOOD SPECIMENOrdering Facility: [facility] Address: [address] [place] [address] Performed By: #### 5 8410-2 ####[facility]ORATORYCLIA [id number] [place] [address] [place] Platelets (Bld) [#/Vol] 356 10*3/uL Normal 150-400 [facility] Comment on above: Order Comment: Speci men Type: BLOOD SPECIMENOrdering Facility: [facility] Address: [address] [place] [address] Performed By: #### 5 8410-2 ####[facility]ORATORYCLIA [id number] [address] [place] RBC (Bld) [#/Vol] 3.20 10*6/uL Low 4.20-6.00 [facility] Comment on above: Order Comment: Speci men Type: BLOOD SPECIMENOrdering Facility: [facility] Address: [address] [place] [address] Performed By: #### 5 8410-2 ####[facility]ORATORYCLIA [id number] [address] [place] WBC (Bld) [#/Vol] 9.20 10*3/uL Normal 3.70-11.00 [facility] Comment on above: Order Comment: Speci men Type: BLOOD SPECIMENOrdering Facility: [facility] Address: [address] [place] [address] Performed By: #### 5 8410-2 ####[facility]ORATORYCLIA [id number] [address] CONSULT PROGon 07-13-2021 CONSULT PROG Normal [facility] CONSULT PROG Normal [facility] CONSULT PROG Normal [facility] Magnesium SerPl-mCncon 07-13 Magnesium [Mass/Vol] 2.1 mg/dL Normal 1.7-2.3 [facility] Comment on above: Order Comment: Speci men Type: BLOOD SPECIMENOrdering Facility: [facility] Address: [address] [place] [address] Performed By: #### 1 9123-9, 2777-1, 88034-9 ####[facility]ORATORYCLIA [id number] [address] Phosphate SerPl-mCncon 07-13 Phosphate [Mass/Vol] 3.7 mg/dL Normal 2.7-4.8 [facility] Comment on above: Order Comment: Speci men Type: BLOOD SPECIMENOrdering Facility: [facility] Address: [address] [place] [address] Performed By: #### 1 9123-9, 2777-1, 71489-9 ####[facility]ORATORYCLIA [id number] [address] THERAPY NTon 07-13-2021 THERAPY NT Normal [facility] THERAPY NT Normal [facility] Vancomycin random [Mass/Vol] on 07-13-2021 Vancomycin [Mass/Vol] 31.7 ug/mL High 10.0-20.0 [facility] Comment on above: Order Comment: Speci men Type: BLOOD SPECIMENOrdering Facility: [facility] Address: [address] [place] [address] Result Comment: Refe rence ranges and high/low indicator flags are provided as general guidelines only. The treating physician must determine appropriate target levels/dosing based on the specific clinical situation. Performed By: #### 4 091-5 ####[facility]ORATORYCLIA [id number] [address] [place] aPTT PPPon 07-13-2021 aPTT Coag (PPP) [Time] 47.3 s High 23.0-32.4 [facility] Comment on above: Order Comment: Speci men Type: BLOOD SPECIMENOrdering Facility: [facility] Address: [address] [place] [address] Performed By: #### 1 4979-9 ####[facility]ORATORYCLIA [id number] [address] aPTT Coag (PPP) [Time] 51.2 s High 23.0-32.4 [facility] Comment on above: Order Comment: Speci men Type: BLOOD SPECIMENOrdering Facility: [facility] Address: [address] [place] [address] Performed By: #### 1 4979-9 ####[facility]ORATORYCLIA [id number] [address] [place] [facility] aPTT Coag (PPP) [Time] 47.5 s High 23.0-32.4 [facility] Comment on above: Order Comment: Speci men Type: BLOOD SPECIMENOrdering Facility: [facility] Address: [address] [place] [address] Performed By: #### 1 4979-9 ####[facility]ORATORYCLIA [id number] [place] [address] [place] Basic metabolic 2000 panelon 07-12-2021 Anion gap [Moles/Vol] 7 mmol/L Low 9-18 [facility] Comment on above: Order Comment: Speci men Type: BLOOD SPECIMENOrdering Facility: [facility] Address: [address] [place] [address] Performed By: #### 1 9123-9, 2777-1, 40724-0 ####[facility]ORATORYCLIA [id number] [address] [place] [facility] Calcium [Mass/Vol] 8.3 mg/dL Low 8.5-10.2 [facility] Comment on above: Order Comment: Speci men Type: BLOOD SPECIMENOrdering Facility: [facility] Address: [address] [place] [address] Performed By: #### 1 9123-9, 2777-1, 41573-3 ####[facility]ORATORYCLIA [id number] [place] [address] [place] Chloride [Moles/Vol] 101 mmol/L Normal 97-105 [facility] Comment on above: Order Comment: Speci men Type: BLOOD SPECIMENOrdering Facility: [facility] Address: [address] [place] [address] Performed By: #### 1 9123-9, 2777-1, 25656-4 ####[facility]ORATORYCLIA [id number] [place] [address] [place] CO2 [Moles/Vol] 32 mmol/L High 22-30 [facility] Comment on above: Order Comment: Speci men Type: BLOOD SPECIMENOrdering Facility: [facility] Address: [address] [place] [address] Performed By: #### 1 9123-9, 2777-, 76859-7 ####[facility]ORATORYCLIA [id number] [place] [address] [place] Creatinine [Mass/Vol] 0.70 mg/dL Low 0.73-1.22 [facility] Comment on above: Order Comment: Speci men Type: BLOOD SPECIMENOrdering Facility: [facility] Address: [address] [place] [address] Performed By: #### 1 9123-9, 2777-, 84278-6 ####[facility]ORATORYCLIA [id number] [address] [place] ESTIMATED GLOMERULAR FILTRATION RATE 100 mL/min/1.73m??? Normal >=60 [facility] Comment on above: Order Comment: Speci men Type: BLOOD SPECIMENOrdering Facility: [facility] Address: [address] [place] [address] Result Comment: Luzmaria mated Glomerular Filtration Rate [...] GFR. Performed By: #### 1 9123-9, 2777-1, 76260-3 ####[facility]ORATORYCLIA [id number] [place] [address] [place] Glucose [Mass/Vol] 104 mg/dL High 74-99 [facility] Comment on above: Order Comment: Shira feldman Type: BLOOD SPECIMENOrdering Facility: [facility] Address: [address] [place], [place] [address] Result Comment: The [employer] [place] [employer] (ADA) provides guidance for cutoff [...] Standards of Medical Care in Diabetes 2016, [employer] [place] [employer]. Diabetes Care. 2016.39(Suppl 1). Performed By: #### 1 9123-9, 2776-, 46751-0 ####[facility] LABORATORYCLIA [id number] [place] [id number] [place] Potassium [Moles/Vol] 3.7 mmol/L Normal 3.7-5.1 [facility] Comment on above: Order Comment: Shira feldman Type: BLOOD SPECIMENOrdering Facility: [facility] Address: [address] [place] [address] Performed By: #### 1 9123-9, 2777-, 84403-5 ####[facility]ORATORYCLIA [id number] [place] [address] [place] Sodium [Moles/Vol] 140 mmol/L Normal 136-144 [facility] Comment on above: Order Comment: Speci men Type: BLOOD SPECIMENOrdering Facility: [facility] Address: [address] [place] [address] Performed By: #### 1 9123-9, 2777-1, 20224-9 ####[facility]ORATORYCLIA [id number] [address] [place] [facility] Urea nitrogen [Mass/Vol] 12 mg/dL Normal 9-24 [facility] Comment on above: Order Comment: Speci men Type: BLOOD SPECIMENOrdering Facility: [facility] Address: [address] [place] [address] Performed By: #### 1 9123-9, 2777-, 14283-1 ####[facility]ORATORYCLIA [id number] [address] [place] [facility] CBC panel Auto (Bld)on 07-12 Erythrocyte distribution width (RBC) [Ratio] 16.1 % High 11.5-15.0 [facility] Comment on above: Order Comment: Speci men Type: BLOOD SPECIMENOrdering Facility: [facility] Address: [address] [place] [address] Performed By: #### 5 8410-2 ####[facility]ORATORYCLIA [id number] [address] [place] Hematocrit (Bld) [Volume fraction] 28.2 % Low 39.0-51.0 [facility] Comment on above: Order Comment: Speci men Type: BLOOD SPECIMENOrdering Facility: [facility] Address: [address] [place] [address] Performed By: #### 5 8410-2 ####[facility]ORATORYCLIA [id number] [address] [place] [facility] Hemoglobin (Bld) [Mass/Vol] 8.5 g/dL Low 13.0-17.0 [facility] Comment on above: Order Comment: Speci men Type: BLOOD SPECIMENOrdering Facility: [facility] Address: [address] [place] [address] Performed By: #### 5 8410-2 ####[facility]ORATORYCLIA [id number] [address] MCH (RBC) [Entitic mass] 26.8 pg Normal 26.0-34.0 [facility] Comment on above: Order Comment: Speci men Type: BLOOD SPECIMENOrdering Facility: [facility] Address: [address] [place] [address] Performed By: #### 5 8410-2 ####[facility]ORATORYCLIA [id number] [address] MCHC (RBC) [Mass/Vol] 30.1 g/dL Low 30.5-36.0 [facility] Comment on above: Order Comment: Speci men Type: BLOOD SPECIMENOrdering Facility: [facility] Address: [address] [place] [address] Performed By: #### 5 8410-2 ####[facility]ORATORYCLIA [id number] [address] MCV (RBC) [Entitic vol] 89.0 fL Normal 80.0-100.0 [facility] Comment on above: Order Comment: Speci men Type: BLOOD SPECIMENOrdering Facility: [facility] Address: [address] [place] [address] Performed By: #### 5 8410-2 ####[facility]ORATORYCLIA [id number] [address] Nucleated RBC (Bld) [#/Vol] 10*3/uL Normal <0.01 [facility] Comment on above: Order Comment: Speci men Type: BLOOD SPECIMENOrdering Facility: [facility] Address: [address] [place] [address] Performed By: #### 5 8410-2 ####[facility]ORATORYCLIA [id number] [address] Platelet mean volume (Bld) [Entitic vol] 9.6 fL Normal 9.0-12.7 [facility] Comment on above: Order Comment: Speci men Type: BLOOD SPECIMENOrdering Facility: [facility] Address: [address] [place] [address] Performed By: #### 5 8410-2 ####[facility]ORATORYCLIA [id number] [address] OF [facility] Platelets (Bld) [#/Vol] 340 10*3/uL Normal 150-400 [facility] Comment on above: Order Comment: Speci men Type: BLOOD SPECIMENOrdering Facility: [facility] Address: [address] [place] [address] Performed By: #### 5 8410-2 ####[facility]ORATORYCLIA [id number] [address] [place] RBC (Bld) [#/Vol] 3.17 10*6/uL Low 4.20-6.00 [facility] Comment on above: Order Comment: Speci men Type: BLOOD SPECIMENOrdering Facility: [facility] Address: [address] [place] [address] Performed By: #### 5 8410-2 ####[facility]ORATORYCLIA [id number] [address] OF [facility] WBC (Bld) [#/Vol] 8.66 10*3/uL Normal 3.70-11.00 [facility] Comment on above: Order Comment: Speci men Type: BLOOD SPECIMENOrdering Facility: [facility] Address: [address] [place] [address] Performed By: #### 5 8410-2 ####[facility]ORATORYCLIA [id number] [address] [place] CONSULTon 07-12-2021 CONSULT Normal [facility] CONSULT PROGon 07-12-2021 CONSULT PROG Normal [facility] Magnesium SerPl-mCncon 07-12 Magnesium [Mass/Vol] 2.1 mg/dL Normal 1.7-2.3 [facility] Comment on above: Order Comment: Speci men Type: BLOOD SPECIMENOrdering Facility: [facility] Address: [address] [place] [address] Performed By: #### 1 9123-9, 2777-1, 83188-5 ####[facility]ORATORYCLIA [id number] [address] OF [facility] NURSING PROGon 07-12-2021 NURSING PROG Normal [facility] Phosphate SerPl-mCncon 07-12 Phosphate [Mass/Vol] 3.1 mg/dL Normal 2.7-4.8 [facility] Comment on above: Order Comment: Speci men Type: BLOOD SPECIMENOrdering Facility: [facility] Address: [address] [place] [address] Performed By: #### 1 9123-9, 2777, 67125-4 ####[facility]ORATORYCLIA [id number] [address] THERAPY NTon 07-12-2021 THERAPY NT Normal [facility] aPTT PPPon 07-12-2021 aPTT Coag (PPP) [Time] 49.5 s High 23.0-32.4 [facility] Comment on above: Order Comment: Speci men Type: BLOOD SPECIMENOrdering Facility: [facility] Address: [address] [place] [address] Performed By: #### 1 4979-9 ####[facility]ORATORYCLIA [id number] [address] [place] aPTT Coag (PPP) [Time] 68.0 s High 23.0-32.4 [facility] Comment on above: Order Comment: Speci men Type: BLOOD SPECIMENOrdering Facility: [facility] Address: [address] [place] [address] Performed By: #### 1 4979-9 ####[facility]ORATORYCLIA [id number] [address] aPTT Coag (PPP) [Time] 80.0 s High 23.0-32.4 [facility] Comment on above: Order Comment: Speci men Type: BLOOD SPECIMENOrdering Facility: [facility] Address: [address] [place] [address] Performed By: #### 1 4979-9 ####[facility]ORATORYCLIA [id number] [address] [place] CASE MGT INIT ASSESon 2021 CASE MGT INIT ASSES Normal [facility] CBC panel Auto (Bld)on 07-11 Erythrocyte distribution width (RBC) [Ratio] 16.3 % High 11.5-15.0 [facility] Comment on above: Order Comment: Speci men Type: BLOOD SPECIMENOrdering Facility: [facility] Address: [address] [place] [address] Performed By: #### 5 8410-2 ####[facility]ORATORYCLIA [id number] [address] STATES [facility] Hematocrit (Bld) [Volume fraction] 28.3 % Low 39.0-51.0 [facility] Comment on above: Order Comment: Speci men Type: BLOOD SPECIMENOrdering Facility: [facility] Address: [address] [place] [address] Performed By: #### 5 8410-2 ####[facility]ORATORYCLIA [id number] [address] [place] Hemoglobin (Bld) [Mass/Vol] 8.8 g/dL Low 13.0-17.0 [facility] Comment on above: Order Comment: Speci men Type: BLOOD SPECIMENOrdering Facility: [facility] Address: [address] [place] [address] Performed By: #### 5 8410-2 ####[facility]ORATORYCLIA [id number] [address] [place] MCH (RBC) [Entitic mass] 27.4 pg Normal 26.0-34.0 [facility] Comment on above: Order Comment: Speci men Type: BLOOD SPECIMENOrdering Facility: [facility] Address: [address] [place] [address] Performed By: #### 5 8410-2 ####[facility]ORATORYCLIA [id number] [address] MCHC (RBC) [Mass/Vol] 31.1 g/dL Normal 30.5-36.0 [facility] Comment on above: Order Comment: Speci men Type: BLOOD SPECIMENOrdering Facility: [facility] Address: [address] [place] [address] Performed By: #### 5 8410-2 ####[facility]ORATORYCLIA [id number] [address] MCV (RBC) [Entitic vol] 88.2 fL Normal 80.0-100.0 [facility] Comment on above: Order Comment: Speci men Type: BLOOD SPECIMENOrdering Facility: [facility] Address: [address] [place] [address] Performed By: #### 5 8410-2 ####[facility]ORATORYCLIA [id number] [address] Nucleated RBC (Bld) [#/Vol] 10*3/uL Normal <0.01 [facility] Comment on above: Order Comment: Speci men Type: BLOOD SPECIMENOrdering Facility: [facility] Address: [address] [place] [address] Performed By: #### 5 8410-2 ####[facility]ORATORYCLIA [id number] [address] Platelet mean volume (Bld) [Entitic vol] 9.7 fL Normal 9.0-12.7 [facility] Comment on above: Order Comment: Speci men Type: BLOOD SPECIMENOrdering Facility: [facility] Address: [address] [place] [address] Performed By: #### 5 8410-2 ####[facility]ORATORYCLIA [id number] [address] [place] [facility] Platelets (Bld) [#/Vol] 315 10*3/uL Normal 150-400 [facility] Comment on above: Order Comment: Speci men Type: BLOOD SPECIMENOrdering Facility: [facility] Address: [address] [place] [address] Performed By: #### 5 8410-2 ####[facility] LABORATORYCLIA [id number] [place] [address] [place] RBC (Bld) [#/Vol] 3.21 10*6/uL Low 4.20-6.00 [facility] Comment on above: Order Comment: Speci men Type: BLOOD SPECIMENOrdering Facility: [facility] Address: [address] [place] [address] Performed By: #### 5 8410-2 ####[facility] LABORATORYCLIA [id number] OF [facility] WBC (Bld) [#/Vol] 9.18 10*3/uL Normal 3.70-11.00 [facility] [facility] Comment on above: Order Comment: Speci men Type: BLOOD SPECIMENOrdering Facility: [facility] Address: [address] [place] [address] Performed By: #### 5 8410-2 ####[facility] LABORATORYCLIA [id number] [address] [place] CONSULT PROGon 07-11-2021 CONSULT PROG Normal [facility] CT BRAIN WO IVCONon 07-12-[address] BRAIN WO IVCON Normal [facility] Magnesium SerPl-mCncon 07-11 Magnesium [Mass/Vol] 2.1 mg/dL Normal 1.7-2.3 [facility] Comment on above: Order Comment: Speci men Type: BLOOD SPECIMENOrdering Facility: [facility] Address: [address] [place] [address] Performed By: #### 1 9123-9, 2777-1 ####[facility] LABORATORYCLIA [id number] [address] NURSING PROGon 07-11-2021 NURSING PROG Normal [facility] NURSING PROG Normal [facility] Phosphate SerPl-mCncon 07-11 Phosphate [Mass/Vol] 3.4 mg/dL Normal 2.7-4.8 [facility] Comment on above: Order Comment: Speci men Type: BLOOD SPECIMENOrdering Facility: [facility] Address: [address] [place] [address] Performed By: #### 1 9123-9, 2777-1 ####[facility] LABORATORYCLIA [id number] [address] THERAPY NTon 07-11-2021 THERAPY NT Normal [facility] Vancomycin random [Mass/Vol] on 07-11-2021 Vancomycin [Mass/Vol] 28.6 ug/mL High 10.0-20.0 [facility] Comment on above: Order Comment: Speci men Type: BLOOD SPECIMENOrdering Facility: [facility] Address: [address] [place] [address] Result Comment: Refe rence ranges and high/low indicator flags are provided as general guidelines only. The treating physician must determine appropriate target levels/dosing based on the specific clinical situation. Performed By: #### 4 091-5 ####[facility] LABORATORYCLIA [id number] [address] aPTT PPPon 07-11-2021 aPTT Coag (PPP) [Time] 62.0 s High 23.0-32.4 [facility] Comment on above: Order Comment: Speci men Type: BLOOD SPECIMENOrdering Facility: [facility] Address: [address] [place] [address] Performed By: #### 1 4979-9 ####[facility] LABORATORYCLIA [id number] [address] aPTT Coag (PPP) [Time] 52.7 s High 23.0-32.4 [facility] Comment on above: Order Comment: Speci men Type: BLOOD SPECIMENOrdering Facility: [facility] Address: [address] [place] [address] Performed By: #### 1 4979-9 ####[facility]ORATORYCLIA [id number] [address] [place] aPTT Coag (PPP) [Time] 29.9 s Normal 23.0-32.4 [facility] Comment on above: Order Comment: Speci men Type: BLOOD SPECIMENOrdering Facility: [facility] Address: [address] [place] [address] Performed By: #### 1 4979-9 ####[facility] LABORATORYCLIA [id number] [place] [address] [place] Basic metabolic 2000 panelon 07-10-2021 Anion gap [Moles/Vol] 14 mmol/L Normal 9-18 [facility] Comment on above: Order Comment: Speci men Type: BLOOD SPECIMENOrdering Facility: [facility] Address: [address] [place] [address] Performed By: #### 1 9123-9, 2777-1, 97667-2 ####[facility]ITAL[facility]IA [id number] [place] [address] [place] Calcium [Mass/Vol] 8.5 mg/dL Normal 8.5-10.2 [facility] Comment on above: Order Comment: Speci men Type: BLOOD SPECIMENOrdering Facility: [facility] Address: [address] [place] [address] Performed By: #### 1 9123-9, 2777-1, 89541-9 ####[facility] LABORATORYCLIA [id number] [place] [address] [place] Chloride [Moles/Vol] 100 mmol/L Normal 97-105 [facility] Comment on above: Order Comment: Speci men Type: BLOOD SPECIMENOrdering Facility: [facility] Address: [address] [place] [address] Performed By: #### 1 9123-9, 2777, 59710-3 ####[facility] LABORATORYCLIA [id number] [address] STATES OF [facility] CO2 [Moles/Vol] 27 mmol/L Normal 22-30 [facility] Comment on above: Order Comment: Speci men Type: BLOOD SPECIMENOrdering Facility: [facility] Address: [address] [place] [address] Performed By: #### 1 9123-9, 27711-04, 51049-7 ####[facility]ORATORYCLIA [id number] [address] STATES [place] [facility] Creatinine [Mass/Vol] 0.66 mg/dL Low 0.73-1.22 [facility] Comment on above: Order Comment: Speci men Type: BLOOD SPECIMENOrdering Facility: [facility] Address: [address] [place] [address] Performed By: #### 1 9123-9, 27711-04, ####[facility]ITALCLIA [id number] [address] ESTIMATED GLOMERULAR FILTRATION RATE 102 mL/min/1.73m??? Normal >=60 [facility] Comment on above: Order Comment: Speci men Type: BLOOD SPECIMENOrdering Facility: [facility] Address: [address] [place] [address] Result Comment: Luzmaria mated Glomerular Filtration Rate [...] GFR. Performed By: #### 1 9123-9, 2777-, 01535-3 ####[facility] LABORATORYCLIA [id number] [address] STATES [place] Glucose [Mass/Vol] 93 mg/dL Normal 74-99 [facility] Comment on above: Order Comment: Speci men Type: BLOOD SPECIMENOrdering Facility: [facility] Address: [address] [place], [place] [id number] Result Comment: The [place] [employer] (ADA) provides guidance for cutoff [...] Standards of Medical Care in Diabetes 2016, [employer] [place] [employer]. Diabetes Care. 2016.39(Suppl 1). Performed By: #### 1 9123-9, 2777-1, 68526-5 ####[facility]ORATORYCLIA [id number] [place] [address] [place] Potassium [Moles/Vol] 3.5 mmol/L Low 3.7-5.1 [facility] Comment on above: Order Comment: Shira [facility] Type: BLOOD SPECIMENOrdering Facility: [facility] Address: [address] [place], [place] [id number] Performed By: #### 1 9123-9, 2777-, 02866-7 ####[facility]ORATORYCLIA [id number] [place] [address] [place] Sodium [Moles/Vol] 141 mmol/L Normal 136-144 [facility] Comment on above: Order Comment: Speci men Type: BLOOD SPECIMENOrdering Facility: [facility] Address: [address] [place], [place] [address] Performed By: #### 1 9123-9, 2777-, 06314-4 ####[facility]ORATORYCLIA [id number] [place] [address] [place] Urea nitrogen [Mass/Vol] 11 mg/dL Normal 9-24 [facility] Comment on above: Order Comment: Speci men Type: BLOOD SPECIMENOrdering Facility: [facility] Address: [address] [place] [address] Performed By: #### 1 9123-9, 2777-1, 95796-0 ####[facility]ORATORYCLIA [id number] [address] CBC panel Auto (Bld)on 07-10 Erythrocyte distribution width (RBC) [Ratio] 16.2 % High 11.5-15.0 [facility] Comment on above: Order Comment: Speci men Type: BLOOD SPECIMENOrdering Facility: [facility] Address: [address] [place] [address] Performed By: #### 5 8410-2 ####[facility]ORATORYCLIA [id number] [address] Hematocrit (Bld) [Volume fraction] 30.6 % Low 39.0-51.0 [facility] Comment on above: Order Comment: Speci men Type: BLOOD SPECIMENOrdering Facility: [facility] Address: [address] [place] [address] Performed By: #### 5 8410-2 ####[facility]ORATORYCLIA [id number] [address] Hemoglobin (Bld) [Mass/Vol] 9.6 g/dL Low 13.0-17.0 [facility] Comment on above: Order Comment: Speci men Type: BLOOD SPECIMENOrdering Facility: [facility] Address: [address] [place] [address] Performed By: #### 5 8410-2 ####[facility]ORATORYCLIA [id number] [address] MCH (RBC) [Entitic mass] 28.3 pg Normal 26.0-34.0 [facility] Comment on above: Order Comment: Speci men Type: BLOOD SPECIMENOrdering Facility: [facility] Address: [address] [place] [address] Performed By: #### 5 8410-2 ####[facility] LABORATORYCLIA [id number] [address] STATES [facility] MCHC (RBC) [Mass/Vol] 31.4 g/dL Normal 30.5-36.0 [facility] Comment on above: Order Comment: Speci men Type: BLOOD SPECIMENOrdering Facility: [facility] Address: [address] [place] [address] Performed By: #### 5 8410-2 ####[facility]ORATORYCLIA [id number] [address] STATES [facility] MCV (RBC) [Entitic vol] 90.3 fL Normal 80.0-100.0 [facility] Comment on above: Order Comment: Speci men Type: BLOOD SPECIMENOrdering Facility: [facility] Address: [address] [place] [address] Performed By: #### 5 8410-2 ####[facility]ORATORYCLIA [id number] [address] Nucleated RBC (Bld) [#/Vol] 10*3/uL Normal <0.01 [facility] Comment on above: Order Comment: Speci men Type: BLOOD SPECIMENOrdering Facility: [facility] Address: [address] [place] [address] Performed By: #### 5 8410-2 ####[facility]ORATORYCLIA [id number] [address] [place] Platelet mean volume (Bld) [Entitic vol] 9.7 fL Normal 9.0-12.7 [facility] Comment on above: Order Comment: Speci men Type: BLOOD SPECIMENOrdering Facility: [facility] Address: [address] [place] [address] Performed By: #### 5 8410-2 ####[facility]ORATORYCLIA [id number] [address] [place] Platelets (Bld) [#/Vol] 306 10*3/uL Normal 150-400 [facility] Comment on above: Order Comment: Speci men Type: BLOOD SPECIMENOrdering Facility: [facility] Address: [address] [place] [address] Performed By: #### 5 8410-2 ####[facility]ORATORYCLIA [id number] [address] OF [facility] RBC (Bld) [#/Vol] 3.39 10*6/uL Low 4.20-6.00 [facility] Comment on above: Order Comment: Speci men Type: BLOOD SPECIMENOrdering Facility: [facility] Address: [address] [place] [address] Performed By: #### 5 8410-2 ####[facility]ORATORYCLIA [id number] [address] WBC (Bld) [#/Vol] 9.81 10*3/uL Normal 3.70-11.00 [facility] Comment on above: Order Comment: Speci men Type: BLOOD SPECIMENOrdering Facility: [facility] Address: [address] [place] [address] Performed By: #### 5 8410-2 ####[facility]ORATORYCLIA [id number] [address] [place] CONSULTon 07-10-2021 CONSULT Normal [facility] CONSULT Normal [facility] Magnesium SerPl-mCncon 07-10 Magnesium [Mass/Vol] 1.9 mg/dL Normal 1.7-2.3 [facility] Comment on above: Order Comment: Speci men Type: BLOOD SPECIMENOrdering Facility: [facility] Address: [address] [place] [address] Performed By: #### 1 9123-9, 2777-1, 00290-3 ####[facility]ORATORYCLIA [id number] [address] [place] NURSING PROGon 07-10-2021 NURSING PROG Normal [facility] NURSING PROG Normal [facility] NUTRITIONon 07-10-2021 NUTRITION Normal [facility] Phosphate SerPl-mCncon 07-10 Phosphate [Mass/Vol] 3.6 mg/dL Normal 2.7-4.8 [facility] Comment on above: Order Comment: Speci men Type: BLOOD SPECIMENOrdering Facility: [facility] Address: [address] [place] [address] Performed By: #### 1 9123-9, 2777-1, 46422-9 ####[facility] LABORATORYCLIA [id number] [address] [place] US DVT LOWER BILon US DVT LOWER RAINER Normal [facility] aPTT PPPon 07-10-2021 aPTT Coag (PPP) [Time] 28.8 s Normal 23.0-32.4 [facility] Comment on above: Order Comment: Speci men Type: BLOOD SPECIMENOrdering Facility: [facility] Address: [address] [place] [address] Performed By: #### 1 4979-9 ####[facility]ORATORYCLIA [id number] [address] aPTT Coag (PPP) [Time] 28.4 s Normal 23.0-32.4 [facility] Comment on above: Order Comment: Speci men Type: BLOOD SPECIMENOrdering Facility: [facility] Address: [address] [place] [address] Performed By: #### 1 4979-9 ####[facility]ORATORYCLIA [id number] [address] [place] ALLIED HEALTHon 07-09-2021 ALLIED HEALTH Normal [facility] Basic metabolic 2000 panelon 07-09-2021 Anion gap [Moles/Vol] 9 mmol/L Normal 9-18 [facility] Comment on above: Order Comment: Speci men Type: BLOOD SPECIMENOrdering Facility: [facility] Address: [address] [place] [address] Performed By: #### 1 9123-9, 2777-1, 52854-2 ####[facility]ORATORYCLIA [id number] [place] [address] [place] Calcium [Mass/Vol] 8.3 mg/dL Low 8.5-10.2 [facility] Comment on above: Order Comment: Speci men Type: BLOOD SPECIMENOrdering Facility: [facility] Address: [address] [place] [address] Performed By: #### 1 9123-9, 2777-1, 96763-8 ####[facility]ORATORYCLIA [id number] [place] [address] [place] Chloride [Moles/Vol] 100 mmol/L Normal 97-105 [facility] Comment on above: Order Comment: Speci men Type: BLOOD SPECIMENOrdering Facility: [facility] Address: [address] [place] [address] Performed By: #### 1 9123-9, 27711-04, 12290-7 ####[facility]ORATORYCLIA [id number] [address] [place] CO2 [Moles/Vol] 29 mmol/L Normal 22-30 [facility] Comment on above: Order Comment: Speci men Type: BLOOD SPECIMENOrdering Facility: [facility] Address: [address] [place] [address] Performed By: #### 1 9123-9, 27711-04, 49359-7 ####[facility]ORATORYCLIA [id number] [place] [address] [place] Creatinine [Mass/Vol] 0.61 mg/dL Low 0.73-1.22 [facility] Comment on above: Order Comment: Speci men Type: BLOOD SPECIMENOrdering Facility: [facility] Address: [address] [place] [address] Performed By: #### 1 9123-9, 2777-1, 78031-4 ####[facility]ORATORYCLIA [id number] [address] OF [facility] ESTIMATED GLOMERULAR FILTRATION RATE 104 mL/min/1.73m??? Normal >=60 [facility] Comment on above: Order Comment: Shira feldman Type: BLOOD SPECIMENOrdering Facility: [facility] Address: [address] [place], [place] [address] Result Comment: Luzmaria mated Glomerular Filtration Rate [...] GFR. Performed By: #### 1 9123-9, 2777-1, 75401-9 ####[facility]CLIA [id number] [place] [address] [place] Glucose [Mass/Vol] 106 mg/dL High 74-99 [facility] Comment on above: Order Comment: Shira feldman Type: BLOOD SPECIMENOrdering Facility: [facility] Address: [address] [place] [address] Result Comment: The [place] [employer] (ADA) provides guidance for cutoff [...] Standards of Medical Care in Diabetes 2016, [employer] [place] [employer]. Diabetes Care. 2016.39(Suppl 1). Performed By: #### 1 9123-9, 2777-1, 94388-7 ####[facility]ORATORYCLIA [id number] [place] [address] [place] Potassium [Moles/Vol] 3.6 mmol/L Low 3.7-5.1 [facility] Comment on above: Order Comment: Shira feldman Type: BLOOD SPECIMENOrdering Facility: [facility] Address: [address] [place] [address] Performed By: #### 1 9123-9, 2777-1, 62578-9 ####[facility]ORATORYCLIA [id number] [address] Sodium [Moles/Vol] 138 mmol/L Normal 136-144 [facility] Comment on above: Order Comment: Speci men Type: BLOOD SPECIMENOrdering Facility: [facility] Address: [address] [place] [address] Performed By: #### 1 9123-9, 2777, 10407-0 ####[facility]ATORYCLIA [id number] [address] Urea nitrogen [Mass/Vol] 12 mg/dL Normal 9-24 [facility] Comment on above: Order Comment: Speci men Type: BLOOD SPECIMENOrdering Facility: [facility] Address: [address] [place] [address] Performed By: #### 1 9123-9, 2777, 36790-7 ####[facility]ORATORYCLIA [id number] [address] CBC panel Auto (Bld)on 07-09 Erythrocyte distribution width (RBC) [Ratio] 16.2 % High 11.5-15.0 [facility] Comment on above: Order Comment: Speci men Type: BLOOD SPECIMENOrdering Facility: [facility] Address: [address] [place] [address] Performed By: #### 5 8410-2 ####[facility]ATORYCLIA [id number] [address] Hematocrit (Bld) [Volume fraction] 29.0 % Low 39.0-51.0 [facility] Comment on above: Order Comment: Speci men Type: BLOOD SPECIMENOrdering Facility: [facility] Address: [address] [place] [address] Performed By: #### 5 8410-2 ####[facility]ORATORYCLIA [id number] [address] OF [facility] Hemoglobin (Bld) [Mass/Vol] 8.8 g/dL Low 13.0-17.0 [facility] Comment on above: Order Comment: Speci men Type: BLOOD SPECIMENOrdering Facility: [facility] Address: [address] [place] [address] Performed By: #### 5 8410-2 ####[facility]ORATORYCLIA [id number] [address] MCH (RBC) [Entitic mass] 27.0 pg Normal 26.0-34.0 [facility] Comment on above: Order Comment: Speci men Type: BLOOD SPECIMENOrdering Facility: [facility] Address: [address] [place] [address] Performed By: #### 5 8410-2 ####[facility]ORATORYCLIA [id number] [address] MCHC (RBC) [Mass/Vol] 30.3 g/dL Low 30.5-36.0 [facility] Comment on above: Order Comment: Speci men Type: BLOOD SPECIMENOrdering Facility: [facility] Address: [address] [place] [address] Performed By: #### 5 8410-2 ####[facility]ORATORYCLIA [id number] [address] MCV (RBC) [Entitic vol] 89.0 fL Normal 80.0-100.0 [facility] Comment on above: Order Comment: Speci men Type: BLOOD SPECIMENOrdering Facility: [facility] Address: [address] [place] [address] Performed By: #### 5 8410-2 ####[facility]ORATORYCLIA [id number] [address] Nucleated RBC (Bld) [#/Vol] 10*3/uL Normal <0.01 [facility] Comment on above: Order Comment: Speci men Type: BLOOD SPECIMENOrdering Facility: [facility] Address: [address] [place] [address] Performed By: #### 5 8410-2 ####[facility]ORATORYCLIA [id number] [address] Platelet mean volume (Bld) [Entitic vol] 9.8 fL Normal 9.0-12.7 [facility] Comment on above: Order Comment: Speci men Type: BLOOD SPECIMENOrdering Facility: [facility] Address: [address] [place] [address] Performed By: #### 5 8410-2 ####[facility]ATORYCLIA [id number] [address] [place] Platelets (Bld) [#/Vol] 281 10*3/uL Normal 150-400 [facility] Comment on above: Order Comment: Speci men Type: BLOOD SPECIMENOrdering Facility: [facility] Address: [address] [place] [address] Performed By: #### 5 8410-2 ####[facility]ORATORYCLIA [id number] [address] [place] RBC (Bld) [#/Vol] 3.26 10*6/uL Low 4.20-6.00 [facility] Comment on above: Order Comment: Speci men Type: BLOOD SPECIMENOrdering Facility: [facility] Address: [address] [place], [place] [address] Performed By: #### 5 8410-2 ####[facility]ORATORYCLIA [id number] [address] [place] WBC (Bld) [#/Vol] 9.12 10*3/uL Normal 3.70-11.00 [facility] Comment on above: Order Comment: Speci men Type: BLOOD SPECIMENOrdering Facility: [facility] Address: [address] [place] [address] Performed By: #### 5 8410-2 ####[facility]ORATORYCLIA [id number] [address] [place] CONSULT PROGon 07-09-2021 CONSULT PROG Normal [facility] CONSULT PROG Normal [facility] HISTORY PHYSICALon HISTORY PHYSICAL Normal [facility] Magnesium SerPl-mCncon 07-09 Magnesium [Mass/Vol] 1.9 mg/dL Normal 1.7-2.3 [facility] Comment on above: Order Comment: Speci men Type: BLOOD SPECIMENOrdering Facility: [facility] Address: [address] [place] [address] Performed By: #### 1 9123-9, 2777-1, 61094-9 ####[facility]ORATORYCLIA [id number] [address] Phosphate SerPl-mCncon 07-09 Phosphate [Mass/Vol] 3.6 mg/dL Normal 2.7-4.8 [facility] Comment on above: Order Comment: Speci men Type: BLOOD SPECIMENOrdering Facility: [facility] Address: [address] [place] [address] Performed By: #### 1 9123-9, 2777-1, 52379-0 ####[facility]ORATORYCLIA [id number] [address] THERAPY NTon 07-09-2021 THERAPY NT Normal [facility] XR ABDOMEN 1V SUPINEon 07-09 XR ABDOMEN 1V SUPINE Normal [facility] ALLIED HEALTHon 07-08-2021 ALLIED HEALTH Normal [...] #### 6 00-7 ####[facility]ORATORYCLIA [id number] [address] Bacteria identified Cx Nom (Bld) CULTURE, BLOOD: No growth 5 days [facility] Comment on above: Performed By: #### 6 00-7 ####[facility]ORATORYCLIA [id number] [address] Bacteria CSF Culton 07-09-19 22 Bacteria identified Cx Nom (CSF) CULTURE, CSF: No growth 14 days GRAM STAIN: No organisms seen No Polymorphonuclear Leukocytes Few Red Blood Cells Gram stain performed on cytospun specimen. Normal [facility] Comment on above: Performed By: #### 6 06-4 ####[facility]ORATORYCLIA [id number] [address] Bacteria Ur Culton 2 Bacteria identified Cx Nom (U) ORGANISM ID: 1 10,000 -<50,000 CFU/ml Proteus species Insignificant colony count. No further workup. ORGANISM ID: 2 <10,000 CFU/ml Normal urogenital crhis [facility] Comment on above: Performed By: #### 6 30-4 ####[facility]ORATORYCLIA [id number] [address] Bacteria Wnd Culton 07-09-19 22 [...] #### 6 462-6 ####[facility]ORATORYCLIA [id number] [address] Bacteria identified Cx Nom (Wound) ORGANISM ID: 1 Rare Coagulase negative staphylococcus No susceptibility testing done. Call lab within 72 hours to initiate work-up if clinically indicated. GRAM STAIN: Account credited. Not performed on this specimen type. [facility] Comment on above: Performed By: #### 6 462-6 ####[facility] [facility]OSPITAL LABORATORYCLIA [id number] [place] [address] Bacteria identified Cx Nom (Wound) CULTURE, INTRAOPERATIVE HARDWARE: No growth 14 days GRAM STAIN: Account credited. Not performed on this specimen type. Normal [facility] Comment on above: Performed By: #### 6 462-6 ####[facility] LABORATORYCLIA [id number] [place] [address] [place] Basic metabolic 2000 panelon 07-08-2021 Anion gap [Moles/Vol] 9 mmol/L Normal 9-18 [facility] Comment on above: Order Comment: Speci men Type: BLOOD SPECIMENOrdering Facility: [facility] Address: [address] [place] [address] Performed By: #### 2 4321-2 ####[facility] LABORATORYCLIA [id number] [place] [address] [place] Calcium [Mass/Vol] 8.5 mg/dL Normal 8.5-10.2 [facility] Comment on above: Order Comment: Speci men Type: BLOOD SPECIMENOrdering Facility: [facility] Address: [address] [place] [address] Performed By: #### 2 4321-2 ####[facility] LABORATORYCLIA [id number] [address] [place] Chloride [Moles/Vol] 98 mmol/L Normal 97-105 [facility] Comment on above: Order Comment: Speci men Type: BLOOD SPECIMENOrdering Facility: [facility] Address: [address] [place] [address] Performed By: #### 2 4321-2 ####[facility] LABORATORYCLIA [id number] [place] [address] [place] CO2 [Moles/Vol] 31 mmol/L High 22-30 [facility] Comment on above: Order Comment: Speci men Type: BLOOD SPECIMENOrdering Facility: [facility] Address: [facility] [place] [address] Performed By: #### 2 4321-2 ####[facility] LABORATORYCLIA [id number] [address] [place] Creatinine [Mass/Vol] 0.64 mg/dL Low 0.73-1.22 [facility] Comment on above: Order Comment: Shira feldman Type: BLOOD SPECIMENOrdering Facility: [facility] Address: [address] [place] [address] Performed By: #### 2 4321-2 ####[facility] LABORATORYIA [id number] [address] ESTIMATED GLOMERULAR FILTRATION RATE 102 mL/min/1.73m??? Normal >=60 [facility] Comment on above: Order Comment: Shira feldman Type: BLOOD SPECIMENOrdering Facility: [facility] Address: [address] [place] [address] Result Comment: Luzmaria mated Glomerular Filtration Rate [...] By: #### 2 4321-2 ####[facility] [id number] [address] [place] Glucose [Mass/Vol] 114 mg/dL High 74-99 [facility] Comment on above: Order Comment: Shira feldman Type: BLOOD SPECIMENOrdering Facility: [facility] Address: [address] [place] [address] Result Comment: The [employer] [place] [employer] (ADA) provides guidance for cutoff [...] Standards of Medical Care in Diabetes 2016, [employer] [place] [employer]. Diabetes Care. 2016.39(Suppl 1). Performed By: #### 2 4321-2 ####[facility] LABORATORYCLIA [id number] [address] [place] Potassium [Moles/Vol] 3.4 mmol/L Low 3.7-5.1 [facility] Comment on above: Order Comment: Speci men Type: BLOOD SPECIMENOrdering Facility: [facility] Address: [address] [place] [address] Performed By: #### 2 4321-2 ####[facility] LABORATORYCLIA [id number] [address] STATES [facility] Sodium [Moles/Vol] 138 mmol/L Normal 136-144 [facility] Comment on above: Order Comment: Speci men Type: BLOOD SPECIMENOrdering Facility: [facility] Address: [address] [place] [address] Performed By: #### 2 4321-2 ####[facility] LABORATORYCLIA [id number] [address] STATES [facility] Urea nitrogen [Mass/Vol] 14 mg/dL Normal 9-24 [facility] Comment on above: Order Comment: Speci men Type: BLOOD SPECIMENOrdering Facility: [facility] Address: [address] [place] [address] Performed By: #### 2 4321-2 ####[facility] LABORATORYCLIA [id number] [address] [place] CBC W Auto Differential pane l (Bld)on 07-08-2021 Basophils (Bld) [#/Vol] 0.05 10*3/uL Normal <0.11 [facility] Comment on above: Order Comment: Speci men Type: BLOOD SPECIMENOrdering Facility: [facility] Address: [address] [place] [address] Performed By: #### 5 7021-8 ####[facility] LABORATORYCLIA [id number] [address] [place] Basophils/100 WBC (Bld) 0.4 % Normal [facility] Comment on above: Order Comment: Speci men Type: BLOOD SPECIMENOrdering Facility: [facility] Address: [address] [place] [address] Performed By: #### 5 7021-8 ####[facility] LABORATORYCLIA [id number] [address] [place] Differential cell count method Nom (Bld) Auto Normal [facility] Comment on above: Order Comment: Speci men Type: BLOOD SPECIMENOrdering Facility: [facility] Address: [address] [place] [address] Performed By: #### 5 7021-8 ####[facility] LABORATORYCLIA [id number] [address] [place] Eosinophils (Bld) [#/Vol] 0.68 10*3/uL High <0.46 [facility] Comment on above: Order Comment: Speci men Type: BLOOD SPECIMENOrdering Facility: [facility] Address: [address] [place] [address] Performed By: #### 5 7021-8 ####[facility] LABORATORYCLIA [id number] [address] [place] Eosinophils/100 WBC (Bld) 5.4 % Normal [facility] Comment on above: Order Comment: Speci men Type: BLOOD SPECIMENOrdering Facility: [facility] Address: [address] [place] [address] Performed By: #### 5 7021-8 ####[facility] LABORATORYCLIA [id number] [address] [place] Erythrocyte distribution width (RBC) [Ratio] 16.3 % High 11.5-15.0 [facility] Comment on above: Order Comment: Speci men Type: BLOOD SPECIMENOrdering Facility: [facility] Address: [address] [place] [address] Performed By: #### 5 7021-8 ####[facility] LABORATORYCLIA [id number] [address] Hematocrit (Bld) [Volume fraction] 35.7 % Low 39.0-51.0 [facility] Comment on above: Order Comment: Speci men Type: BLOOD SPECIMENOrdering Facility: [facility] Address: [address] [place] [address] Performed By: #### 5 7021-8 ####[facility] LABORATORYCLIA [id number] [address] Hemoglobin (Bld) [Mass/Vol] 10.8 g/dL Low 13.0-17.0 [facility] Comment on above: Order Comment: Speci men Type: BLOOD SPECIMENOrdering Facility: [facility] Address: [address] [place] [address] Performed By: #### 5 7021-8 ####[facility] LABORATORYCLIA [id number] [address] IMMATURE GRAN % 0.4 % Normal [facility] Comment on above: Order Comment: Speci men Type: BLOOD SPECIMENOrdering Facility: [facility] Address: [address] [place] [address] Performed By: #### 5 7021-8 ####[facility] LABORATORYCLIA [id number] [address] IMMATURE GRAN ABS 0.05 k/uL Normal <0.10 [facility] Comment on above: Order Comment: Speci men Type: BLOOD SPECIMENOrdering Facility: [facility] Address: [address] [place] [address] Performed By: #### 5 7021-8 ####[facility] LABORATORYCLIA [id number] [address] Lymphocytes (Bld) [#/Vol] 1.85 10*3/uL Normal 1.00-4.00 [facility] Comment on above: Order Comment: Speci men Type: BLOOD SPECIMENOrdering Facility: [facility] Address: [address] [place] [address] Performed By: #### 5 7021-8 ####[facility] LABORATORYCLIA [id number] [address] Lymphocytes/100 WBC (Bld) 14.7 % Normal [facility] Comment on above: Order Comment: Speci men Type: BLOOD SPECIMENOrdering Facility: [facility] Address: [address] [place] [address] Performed By: #### 5 7021-8 ####[facility] LABORATORYCLIA [id number] [address] OF [facility] MCH (RBC) [Entitic mass] 27.1 pg Normal 26.0-34.0 [facility] Comment on above: Order Comment: Speci men Type: BLOOD SPECIMENOrdering Facility: [facility] Address: [address] [place] [address] Performed By: #### 5 7021-8 ####[facility] LABORATORYCLIA [id number] [address] STATES [facility] MCHC (RBC) [Mass/Vol] 30.3 g/dL Low 30.5-36.0 [facility] Comment on above: Order Comment: Speci men Type: BLOOD SPECIMENOrdering Facility: [facility] Address: [address] [place] [address] Performed By: #### 5 7021-8 ####[facility] LABORATORYCLIA [id number] [address] MCV (RBC) [Entitic vol] 89.7 fL Normal 80.0-100.0 [facility] Comment on above: Order Comment: Speci men Type: BLOOD SPECIMENOrdering Facility: [facility] Address: [address] [place] [address] Performed By: #### 5 7021-8 ####[facility] LABORATORYCLIA [id number] [address] Monocytes (Bld) [#/Vol] 0.87 10*3/uL High <0.87 [facility] Comment on above: Order Comment: Speci men Type: BLOOD SPECIMENOrdering Facility: [facility] Address: [address] [place] [address] Performed By: #### 5 7021-8 ####[facility] LABORATORYCLIA [id number] [address] [place] Monocytes/100 WBC (Bld) 6.9 % Normal [facility] Comment on above: Order Comment: Speci men Type: BLOOD SPECIMENOrdering Facility: [facility] Address: [address] [place] [address] Performed By: #### 5 7021-8 ####[facility] LABORATORYCLIA [id number] [address] [place] Neutrophils (Bld) [#/Vol] 9.05 10*3/uL High 1.45-7.50 [facility] Comment on above: Order Comment: Speci men Type: BLOOD SPECIMENOrdering Facility: [facility] Address: [address] [place] [address] Performed By: #### 5 7021-8 ####[facility] LABORATORYCLIA [id number] [address] [place] Neutrophils/100 WBC (Bld) 72.2 % Normal [facility] Comment on above: Order Comment: Speci men Type: BLOOD SPECIMENOrdering Facility: [facility] Address: [address] [place] [address] Performed By: #### 5 7021-8 ####[facility]ORATORYCLIA [id number] [address] [place] Nucleated RBC (Bld) [#/Vol] 10*3/uL Normal <0.01 [facility] Comment on above: Order Comment: Speci men Type: BLOOD SPECIMENOrdering Facility: [facility] Address: [address] [place] [address] Performed By: #### 5 7021-8 ####[facility]ORATORYCLIA [id number] [address] [place] Nucleated RBC/100 WBC (Bld) [Ratio] 0.0 /100 WBC Normal [facility] Comment on above: Order Comment: Speci men Type: BLOOD SPECIMENOrdering Facility: [facility] Address: [address] [place] [address] Performed By: #### 5 7021-8 ####[facility] LABORATORYCLIA [id number] [place] [address] [place] Platelet mean volume (Bld) [Entitic vol] 9.9 fL Normal 9.0-12.7 [facility] Comment on above: Order Comment: Speci men Type: BLOOD SPECIMENOrdering Facility: [facility] Address: [address] [place] [address] Performed By: #### 5 7021-8 ####[facility] LABORATORYCLIA [id number] [address] [place] Platelets (Bld) [#/Vol] 335 10*3/uL Normal 150-400 [facility] Comment on above: Order Comment: Speci men Type: BLOOD SPECIMENOrdering Facility: [facility] Address: [address] [place] [address] Performed By: #### 5 7021-8 ####[facility] LABORATORYCLIA [id number] [place] [address] [place] RBC (Bld) [#/Vol] 3.98 10*6/uL Low 4.20-6.00 [facility] Comment on above: Order Comment: Speci men Type: BLOOD SPECIMENOrdering Facility: [facility] Address: [address] [place] [address] Performed By: #### 5 7021-8 ####[facility] LABORATORYCLIA [id number] [address] [place] WBC (Bld) [#/Vol] 12.55 10*3/uL High 3.70-11.00 [facility] Comment on above: Order Comment: Speci men Type: BLOOD SPECIMENOrdering Facility: [facility] Address: [address] [place] [address] Performed By: #### 5 7021-8 ####[facility] LABORATORYCLIA [id number] [address] OF [facility] CK CREATINE KINASEon 022 CK [Catalytic activity/Vol] 72 U/L Normal 51-298 [facility] Comment on above: Order Comment: Speci men Type: BLOOD SPECIMENOrdering Facility: [facility] Address: [address] [place] [address] Performed By: #### C K, 58594-3 ####[facility] LABORATORYCLIA [id number] [address] [place] CONSULT PROGon 07-08-2021 CONSULT PROG Normal [facility] CONSULT PROG Normal [facility] CSF MANUAL DIFFon 07-08-2021 DIF TTL, CSF 3 cells counted Normal [facility] Comment on above: Order Comment: Speci men Type: CEREBROSPINAL FLUIDOrdering Facility: [facility] Address: [address] [place] [address] Performed By: #### 3 4563-7, [id number] ####[facility] LABORATORYCLIA [id number] [place] [address] [place] LYMPH%, CSF 33 % Low 50-90 [facility] Comment on above: Order Comment: Speci men Type: CEREBROSPINAL FLUIDOrdering Facility: [facility] Address: [address] [place] [address] Performed By: #### 3 4563-7, [id number] ####[facility] LABORATORYCLIA [id number] [place] [address] [place] MONO%, CSF 67 % High 10-50 [facility] Comment on above: Order Comment: Speci men Type: CEREBROSPINAL FLUIDOrdering Facility: [facility] Address: [address] [place] [address] Performed By: #### 3 4563-7, [id number] ####[facility] LABORATORYCLIA [id number] [place] [address] [place] ABD/PEL W [...] men Type: CEREBROSPINAL FLUIDOrdering Facility: [facility] Address: [address] [place] [address] Performed By: #### 3 4563-7, [id number] ####[facility] LABORATORYCLIA [id number] [place] [address] [place] Clarity (Unsp spec) Clear Normal Clear [facility] Comment on above: Order Comment: Speci men Type: CEREBROSPINAL FLUIDOrdering Facility: [facility] Address: [address] [place] [address] Performed By: #### 3 4563-7, [id number] ####[facility] LABORATORYCLIA [id number] [address] [place] Color (CSF) Colorless Normal Colorless [facility] Comment on above: Order Comment: Speci men Type: CEREBROSPINAL FLUIDOrdering Facility: [facility] Address: [address] [place] [address] Performed By: #### 3 4563-7, [id number] ####[facility] LABORATORYCLIA [id number] [address] [place] Color (Spun CSF) Colorless Normal Colorless [facility] Comment on above: Order Comment: Speci men Type: CEREBROSPINAL FLUIDOrdering Facility: [facility] Address: [address] [place] [address] Performed By: #### 3 4563-7, [id number] ####[facility] LABORATORYCLIA [id number] [address] CSF TU[employer] Normal [facility] Comment on above: Order Comment: Speci men Type: CEREBROSPINAL FLUIDOrdering Facility: [facility] Address: [address] [place] [address] Performed By: #### 3 4563-7, [id number] ####[facility] LABORATORYCLIA [id number] [address] RBC Manual cnt (CSF) [#/Vol] 94 cells/uL High 0-5 [facility] Comment on above: Order Comment: Speci men Type: CEREBROSPINAL FLUIDOrdering Facility: [facility] Address: [address] [place] [address] Performed By: #### 3 4563-7, [id number] ####[facility] LABORATORYCLIA [id number] [address] WBC Manual cnt (CSF) [#/Vol] 1 cells/uL Normal 0-5 [facility] Comment on above: Order Comment: Speci men Type: CEREBROSPINAL FLUIDOrdering Facility: [facility] Address: [address] [place] [address] Performed By: #### 3 4563-7, [id number] ####[facility] LABORATORYCLIA [id number] [address] [facility] Comprehensive metabolic 2000 panelon 07-08-2021 Albumin [Mass/Vol] 3.6 g/dL Low 3.9-4.9 [facility] Comment on above: Order Comment: Speci men Type: BLOOD SPECIMENOrdering Facility: [facility] Address: [address] [place] [address] Performed By: #### C K, 53890-8 ####[facility] LABORATORYCLIA [id number] [address] ALP [Catalytic activity/Vol] 125 U/L High 38-113 [facility] Comment on above: Order Comment: Speci men Type: BLOOD SPECIMENOrdering Facility: [facility] Address: [address] [place] [place] [address] Performed By: #### Eileen Valdivia, 01479-6 ####[facility] LABORATORYCLIA [id number] [place] [address] [place] ALT With P-5'-P [Catalytic activity/Vol] 24 U/L Normal 10-54 [facility] Comment on above: Order Comment: Speci men Type: BLOOD SPECIMENOrdering Facility: [facility] Address: [address] [place] [place] [address] Performed By: #### Eileen Valdivia, 31081-9 ####[facility] LABORATORYCLIA [id number] [address] STATES [facility] Anion gap [Moles/Vol] 16 mmol/L Normal 9-18 [facility] Comment on above: Order Comment: Speci men Type: BLOOD SPECIMENOrdering Facility: [facility] Address: [address] [place] [address] Performed By: #### Eileen Valdivia, 16747-3 ####[facility] LABORATORYCLIA [id number] [address] [place] AST With P-5'-P [Catalytic activity/Vol] 21 U/L Normal 14-40 [facility] Comment on above: Order Comment: Speci men Type: BLOOD SPECIMENOrdering Facility: [facility] Address: [address] [place] [address] Performed By: #### Eileen Valdivia, 76803-1 ####[facility] LABORATORYCLIA [id number] [address] [place] Bilirubin [Mass/Vol] 0.3 mg/dL Normal 0.2-1.3 [facility] Comment on above: Order Comment: Speci men Type: BLOOD SPECIMENOrdering Facility: [facility] Address: [address] [place] [address] Performed By: #### Eileen Valdivia, 74753-3 ####[facility] LABORATORYCLIA [id number] [address] [place] Calcium [Mass/Vol] 8.9 mg/dL Normal 8.5-10.2 [facility] Comment on above: Order Comment: Speci men Type: BLOOD SPECIMENOrdering Facility: [facility] Address: [address] [place] [place] [address] Performed By: #### Eileen Valdivia, 38831-4 ####[facility] LABORATORYCLIA [id number] [place] [address] [place] Chloride [Moles/Vol] 96 mmol/L Low 97-105 [facility] Comment on above: Order Comment: Speci men Type: BLOOD SPECIMENOrdering Facility: [facility] Address: [address] [place] [address] Performed By: #### Eileen Valdivia, 56562-0 ####[facility] LABORATORYCLIA [id number] [address] [place] CO2 [Moles/Vol] 27 mmol/L Normal 22-30 [facility] Comment on above: Order Comment: Speci men Type: BLOOD SPECIMENOrdering Facility: [facility] Address: [address] [place] [address] Performed By: #### Eileen Valdivia, 73162-5 ####[facility] LABORATORYCLIA [id number] [address] [place] Creatinine [Mass/Vol] 0.68 mg/dL Low 0.73-1.22 [facility] Comment on above: Order Comment: Speci men Type: BLOOD SPECIMENOrdering Facility: [facility] Address: [address] [place] [place] [address] Performed By: #### Eileen Valdivia, 82376-5 ####[facility] LABORATORYCLIA [id number] [address] ESTIMATED GLOMERULAR FILTRATION RATE 101 mL/min/1.73m??? Normal >=60 [facility] Comment on above: Order Comment: Speci men Type: BLOOD SPECIMENOrdering Facility: [facility] Address: [address] [place] [address] Result Comment: Luzmaria mated Glomerular Filtration Rate [...] actual GFR. Performed By: #### Eileen Valdivia, 57348-6 ####[facility] LABORATORYCLIA [id number] [place] [address] [place] Glucose [Mass/Vol] 130 mg/dL High 74-99 [facility] Comment on above: Order Comment: Shira feldman Type: BLOOD SPECIMENOrdering Facility: [facility] Address: [address] [place], [place] [id number] Result Comment: The [employer] [place] [employer] (ADA) provides guidance for cutoff [...] Standards of Medical Care in Diabetes 2016, [employer] [place] [employer]. Diabetes Care. 2016.39(Suppl 1). Performed By: #### Eileen Valdivia, 50313-1 ####[facility] LABORATORYCLIA [id number] [place] [id number] [place] Potassium [Moles/Vol] 3.9 mmol/L Normal 3.7-5.1 [facility] Comment on above: Order Comment: Shira feldman Type: BLOOD SPECIMENOrdering Facility: [facility] Address: [address] [place] [address] Performed By: #### Eileen Valdivia, 84888-8 ####[facility] LABORATORYCLIA [id number] [place] [address] [place] Protein [Mass/Vol] 7.0 g/dL Normal 6.3-8.0 [facility] Comment on above: Order Comment: Speci men Type: BLOOD SPECIMENOrdering Facility: [facility] Address: [address] [place] [address] Performed By: #### Eileen Valdivia, 39119-6 ####[facility]ORATORYCLIA [id number] [address] [place] Sodium [Moles/Vol] 139 mmol/L Normal 136-144 [facility] Comment on above: Order Comment: Speci men Type: BLOOD SPECIMENOrdering Facility: [facility] Address: [address] [place] [address] Performed By: #### Eileen Valdivia, 68156-3 ####[facility] LABORATORYCLIA [id number] [address] [place] Urea nitrogen [Mass/Vol] 16 mg/dL Normal 9-24 [facility] Comment on above: Order Comment: Speci men Type: BLOOD SPECIMENOrdering Facility: [facility] Address: [address] [place] [address] Performed By: #### Eileen Valdivia, 35696-5 ####[facility] LABORATORYCLIA [id number] [address] ED NOTEon 07-08-2021 ED NOTE HNO ID: [id number] Author: Lenora James RN Service: Emergency Medicine Author Type: Registered Nurse Type: ED Notes Filed: 07/08/2021 5:03 PM Note Text: Pt to OR with surgical team Normal [facility] ED NOTE HNO ID: [id number] Author: Lenora James RN Service: Emergency Medicine Author Type: Registered Nurse Type: ED Notes Filed: 07/08/2021 4:50 PM Note Text: OR team to get pt Normal [facility] ED NOTE HNO ID: [id number] Author: Lenora James RN Service: Emergency Medicine Author Type: Registered Nurse Type: ED Notes Filed: 07/08/2021 4:50 PM Note Text: Normal [facility] ED NOTE HNO ID: [id number] Author: Lenora James RN Service: Emergency Medicine Author Type: Registered Nurse Type: ED Notes Filed: 07/08/2021 4:50 PM Note Text: Spoke with presurg; pt to go to OR now [facility] ED NOTE HNO ID: [id number] Author: Lenora James RN Service: Emergency Medicine Author Type: Registered Nurse Type: ED Notes Filed: 07/08/2021 4:12 PM Note Text: Neurosurgery at beside [facility] ED NOTE HNO ID: [id number] Author: Lenora James RN Service: Emergency Medicine Author Type: Registered Nurse Type: ED Notes Filed: 07/08/2021 2:35 PM Note Text: respiratory aware of pt breathing treatments [facility] ED NOTE HNO ID: [id number] Author: Lisa Woo RN Service: ? Author Type: Registered Nurse Type: ED Notes Filed: 07/08/2021 2:20 PM Note Text: Xray notified pt is ready. [facility] ED NOTE HNO ID: [id number] Author: Lenora James RN Service: Emergency Medicine Author Type: Registered Nurse Type: ED Notes Filed: 07/08/2021 12:14 PM Note Text: CT notified regarding imaging orders placed [facility] ED NOTE Normal [facility] ED PROV NOTEon 07-08-2021 ED PROV NOTE Normal [facility] Glucose CSF-mCncon 2 Glucose (CSF) [Mass/Vol] 88 mg/dL High 40-70 [facility] Comment on above: Order Comment: Speci men Type: CEREBROSPINAL FLUIDOrdering Facility: [facility] Address: [address] [place] [address] Result Comment: Lumb ar CSF glucose values of healthy patients are approximately 60% of the plasma values and must always be compared with a concurrently measured plasma value for adequate clinical interpretation.References: 1. Glucose HK (GLUC3) [package insert V 12.0 Cuban]. [employer], [place], [place]. September 2015. 2. Teresa HGarfield, Loki, H. (2015). Chapter 7: Glucose and Lactate. F. Irina rose al.(eds.), Cerebrospinal Fluid in Clinical Neurology. [place]: [employer]. Performed By: #### 2 880-3, 2342-4 ####[facility] LABORATORYCLIA [id number] [address] HIGH SENSITIVITY TROPONIN To n 07-08-2021 HIGH SENSITIVITY TAMIKO 27 ng/L High <12 [facility] Comment on above: Order Comment: Speci men Type: BLOOD SPECIMENOrdering Facility: [facility] Address: [address] [place] [address] Result Comment: When assessing risk for acute [...] #### H STNT ####[facility] LABORATORYCLIA [id number] [address] HIGH SENSITIVITY TAMIKO 36 ng/L High <12 [facility] Comment on above: Order Comment: Speci francia Type: BLOOD SPECIMENOrdering Facility: [facility] Address: [address] [place] [address] Result Comment: When assessing risk for acute [...] #### H STNT ####[facility] LABORATORYCLIA [id number] [address] [facility] HISTORY PHYSICALon HISTORY PHYSICAL Normal [facility] NURSING PROGon 07-08-2021 NURSING PROG Normal [facility] OPERATIVE NOon 07-08-2021 OPERATIVE NO Normal [facility] Prot CSF-mCncon 07-08-2021 Protein (CSF) [Mass/Vol] 33 mg/dL Normal 15-45 [facility] Comment on above: Order Comment: Speci men Type: CEREBROSPINAL FLUIDOrdering Facility: [facility] Address: [address] [place] [address] Performed By: #### 2 880-3, 2342-4 ####[facility] LABORATORYCLIA [id number] [address] [place] SARS-CoV-2 RNA Resp Ql MEGAN+p robeon 07-08-2021 SARS-CoV-2 (COVID-19) RNA MEGAN+probe Ql (Resp) COVID 19 RESULT: SARS-CoV-2 (Agent of COVID-19) Not Detected by RT-PCR or equivalent method. This test has been authorized by FDA under an Emergency Use Authorization (EUA). Normal [facility] Comment on above: Performed By: #### 9 4500-6 ####[facility]ORATORYCLIA [id number] [address] STAPH AUREUS PCRon 2 S. aureus and MRSA panel MEGAN+probe (Nose) Normal Negative [facility] Comment on above: Order Comment: Speci men Type: SWAB OF INTERNAL NOSEOrdering Facility: [facility] Address: [address] [place] [address] Result Comment: Nega tive for Staphylococcus aureus by PCR.Negative for MRSA by PCR Performed By: #### S APCR ####[facility] LABORATORYCLIA [id number] [address] [place] Urinalysis complete panel (U )on 07-08-2021 Bacteria LM.HPF (Urine sed) [#/Area] Few Abnormal None Seen [facility] Comment on above: Order Comment: Speci men Type: URINE SPECIMENOrdering Facility: [facility] Address: [address] [place] [address] Performed By: #### 2 4356-8 ####[facility]ORATORYCLIA [id number] [place] [address] [place] Bilirubin Ql (U) Negative Normal Negative [facility] Comment on above: Order Comment: Speci men Type: URINE SPECIMENOrdering Facility: [facility] Address: [address] [place] [address] Performed By: #### 2 4356-8 ####[facility]ORATORYCLIA [id number] [address] Clarity (Unsp spec) Turbid Abnormal Clear [facility] Comment on above: Order Comment: Speci men Type: URINE SPECIMENOrdering Facility: [facility] Address: [address] [place] [address] Performed By: #### 2 4356-8 ####[facility] LABORATORYCLIA [id number] [address] Color (U) Light Yellow Normal yellow [facility] Comment on above: Order Comment: Speci men Type: URINE SPECIMENOrdering Facility: [facility] Address: [address] [place] [address] Performed By: #### 2 4356-8 ####[facility]ORATORYCLIA [id number] [address] Glucose Test strip (U) [Mass/Vol] Negative Normal Negative [facility] Comment on above: Order Comment: Speci men Type: URINE SPECIMENOrdering Facility: [facility] Address: [address] [place] [address] Performed By: #### 2 4356-8 ####[facility]ORATORYCLIA [id number] [address] Hemoglobin Ql (U) Negative Normal Negative [facility] Comment on above: Order Comment: Speci men Type: URINE SPECIMENOrdering Facility: [facility] Address: [address] [place] [address] Performed By: #### 2 4356-8 ####[facility]ORATORYCLIA [id number] [address] Hyaline casts (Urine sed) [#/Area] 1-3 /LPF Abnormal 0 /LPF [facility] Comment on above: Order Comment: Speci men Type: URINE SPECIMENOrdering Facility: [facility] Address: [address] [place] [address] Performed By: #### 2 4356-8 ####[facility]ORATORYCLIA [id number] [address] Ketones Ql (U) Negative Normal Negative [facility] Comment on above: Order Comment: Speci men Type: URINE SPECIMENOrdering Facility: [facility] Address: [address] [place] [address] Performed By: #### 2 4356-8 ####[facility] LABORATORYCLIA [id number] [address] Leukocyte esterase Test strip Ql (U) Negative Normal Negative [facility] Comment on above: Order Comment: Speci men Type: URINE SPECIMENOrdering Facility: [facility] Address: [address] [place] [address] Performed By: #### 2 4356-8 ####[facility]ORATORYCLIA [id number] [address] [place] Nitrite Ql (U) Negative Normal Negative [facility] Comment on above: Order Comment: Speci men Type: URINE SPECIMENOrdering Facility: [facility] Address: [address] [place] [address] Performed By: #### 2 4356-8 ####[facility] LABORATORYCLIA [id number] [address] [place] pH (U) 5.0 [pH] Normal 5.0-8.0 [facility] Comment on above: Order Comment: Speci men Type: URINE SPECIMENOrdering Facility: [facility] Address: [address] [place] [address] Performed By: #### 2 4356-8 ####[facility]ORATORYCLIA [id number] [address] [place] Protein (U) [Mass/Vol] Negative Normal Negative [facility] Comment on above: Order Comment: Speci men Type: URINE SPECIMENOrdering Facility: [facility] Address: [address] [place] [address] Performed By: #### 2 4356-8 ####[facility] LABORATORYCLIA [id number] [address] RBC LM.HPF (Urine sed) [#/Area] 11-25 /HPF Abnormal 0-3 /HPF [facility] Comment on above: Order Comment: Speci men Type: URINE SPECIMENOrdering Facility: [facility] Address: [address] [place] [address] Performed By: #### 2 4356-8 ####[facility]ORATORYCLIA [id number] [address] Specific gravity (U) [Rel density] 1.018 Normal 1.005-1.030 [facility] Comment on above: Order Comment: Speci men Type: URINE SPECIMENOrdering Facility: [facility] Address: [address] [place] [address] Performed By: #### 2 4356-8 ####[facility]ORATORYCLIA [id number] [address] Urobilinogen Ql (U) Normal Normal Negative [facility] Comment on above: Order Comment: Speci men Type: URINE SPECIMENOrdering Facility: [facility] Address: [address] [place] [address] Performed By: #### 2 4356-8 ####[facility]ORATORYCLIA [id number] [address] WBC LM.HPF (Urine sed) [#/Area] /[HPF] Abnormal 0-5 /HPF [facility] Comment on above: Order Comment: Speci men Type: URINE SPECIMENOrdering Facility: [facility] Address: [address] [place] [address] Performed By: #### 2 4356-8 ####[facility] LABORATORYCLIA [id number] [address] Vancomycin random [Mass/Vol] on 07-08-2021 Vancomycin [Mass/Vol] 31.0 ug/mL High 10.0-20.0 [facility] Comment on above: Order Comment: Speci men Type: BLOOD SPECIMENOrdering Facility: [facility] Address: [address] [place] [address] Result Comment: Refe rence ranges and high/low indicator flags are provided as general guidelines only. The treating physician must determine appropriate target levels/dosing based on the specific clinical situation. Performed By: #### 4 091-5 ####[facility] LABORATORYCLIA [id number] [address] [facility] XR ABD 2V SUPINE W UPR/DECUB [...] Hospital HISTORY PHYSICALon HISTORY PHYSICAL HNO ID: [id number] Author: Amy Beltran MD Service: ? Author Type: Physician Type: HANDP Filed: 06/30/2021 6:42 PM Note Text: Connected Care Unit History and Physical Facility: [facility] Level of Care: Skilled Admission Date: June [...] regarding the above plan. Total time spent [id number] and/or counseling and coordinating care on the skilled care unit for patient was approximately 45 minutes SUBJECTIVE (HISTORY) Chief Complaint: Confusion, infection, blood clot. Andrew Sifuentes is being seen today for fdc facility (SNF) admission AND management of weakness, tube feed, infected retroperitoneal infection and seizure. HPI: This is a 71 year old male who presents from [facility] with primary admitting diagnosis of [...] CT brain concerning for hydrocephalus. Tip of SHOE RECONDITIONER shunt was found to be in the right axillary region. Patient was intubated and underwent EVD (external ventricular drain) .2/1 noted to have Frontal cephalematoma around EVD [...] Fu (more content not included)... Normal [facility] Basic metabolic 2000 panelon 06-28-2021 Anion gap [Moles/Vol] 7 mmol/L Low 9-18 [facility] Comment on above: Order Comment: Speci men Type: BLOOD SPECIMENOrdering Facility: [facility] Address: [address] [place] [address] [place] [address] Performed By: #### 2 43205-08, ####[facility] LABORATORYCLIA [id number] [place] [address] [place] Calcium [Mass/Vol] 8.8 mg/dL Normal 8.5-10.2 [facility] Comment on above: Order Comment: Speci men Type: BLOOD SPECIMENOrdering Facility: [facility] Address: [address] [place] [address] Performed By: #### 2 2, ####[facility] LABORATORYCLIA [id number] [place] [address] [place] Chloride [Moles/Vol] 103 mmol/L Normal 97-105 [facility] Comment on above: Order Comment: Speci men Type: BLOOD SPECIMENOrdering Facility: [facility] Address: [address] [place] [address] Performed By: #### 2 4320-06, ####[facility]ORATORYCLIA [id number] [place] [address] [place] CO2 [Moles/Vol] 28 mmol/L Normal 22-30 [facility] Comment on above: Order Comment: Speci men Type: BLOOD SPECIMENOrdering Facility: [facility] Address: [address] [place] [address] Performed By: #### 2 4320-06, ####[facility]ORATORYCLIA [id number] [place] [address] [place] Creatinine [Mass/Vol] 0.57 mg/dL Low 0.73-1.22 [facility] Comment on above: Order Comment: Speci men Type: BLOOD SPECIMENOrdering Facility: [facility] Address: [address] [place] [address] Performed By: #### 2 4320-06, ####[facility] LABORATORYCLIA [id number] [place] [address] [place] GFR/1.73 sq M.predicted MDRD (S/P/Bld) [Vol rate/Area] mL/min/{1.73_m2} Normal [facility] Comment on above: Order Comment: Shira feldman Type: BLOOD SPECIMENOrdering Facility: [facility] Address: [address] [place] [address] Result Comment: >60e GFR (Estimated GFR) Units [...] actual GFR. Performed By: #### 2 4321-2, 22185-7 ####[facility] LABORATORYCLIA [id number] [place] [address] [place] Glucose [Mass/Vol] 120 mg/dL High 74-99 [facility] Comment on above: Order Comment: Shira feldman Type: BLOOD SPECIMENOrdering Facility: [facility] Address: [address] [place] [address] Result Comment: The [place] [employer] (ADA) provides guidance for cutoff [...] Standards of Medical Care in Diabetes 2016, [employer] [place] [employer]. Diabetes Care. 2016.39(Suppl 1). Performed By: #### 2 4321-2, 74013-0 ####[facility] LABORATORYCLIA [id number] [place] [address] [place] Potassium [Moles/Vol] 3.8 mmol/L Normal 3.7-5.1 [facility] Comment on above: Order Comment: Speci men Type: BLOOD SPECIMENOrdering Facility: [facility] Address: [address] [place] [address] Performed By: #### 2 4321-2, ####[facility] LABORATORYCLIA [id number] [address] [place] [facility] Sodium [Moles/Vol] 138 mmol/L Normal 136-144 [facility] Comment on above: Order Comment: Speci men Type: BLOOD SPECIMENOrdering Facility: [facility] Address: [address] [place] [address] Performed By: #### 2 4321-2, ####[facility]ORATORYCLIA [id number] [address] [place] [facility] Urea nitrogen [Mass/Vol] 24 mg/dL Normal 9-24 [facility] Comment on above: Order Comment: Speci men Type: BLOOD SPECIMENOrdering Facility: [facility] Address: [address] [place] [address] Performed By: #### 2 4321-2, ####[facility]ORATORYCLIA [id number] [address] CASE MANAGEMon 06-28-2021 CASE MANAGEM Normal [facility] CBC panel Auto (Bld)on 06-28 Erythrocyte distribution width (RBC) [Ratio] 15.6 % High 11.5-15.0 [facility] Comment on above: Order Comment: Speci men Type: BLOOD SPECIMENOrdering Facility: [facility] Address: [address] [place] [address] Performed By: #### 5 8410-2 ####[facility]ORATORYCLIA [id number] [address] Hematocrit (Bld) [Volume fraction] 30.5 % Low 39.0-51.0 [facility] Comment on above: Order Comment: Speci men Type: BLOOD SPECIMENOrdering Facility: [facility] Address: [address] [place] [address] Performed By: #### 5 8410-2 ####[facility]ORATORYCLIA [id number] [address] Hemoglobin (Bld) [Mass/Vol] 9.4 g/dL Low 13.0-17.0 [facility] Comment on above: Order Comment: Speci men Type: BLOOD SPECIMENOrdering Facility: [facility] Address: [address] [place] [address] Performed By: #### 5 8410-2 ####[facility] LABORATORYCLIA [id number] [address] MCH (RBC) [Entitic mass] 27.8 pg Normal 26.0-34.0 [facility] Comment on above: Order Comment: Speci men Type: BLOOD SPECIMENOrdering Facility: [facility] Address: [address] [place] [address] Performed By: #### 5 8410-2 ####[facility] LABORATORYCLIA [id number] [address] MCHC (RBC) [Mass/Vol] 30.8 g/dL Normal 30.5-36.0 [facility] Comment on above: Order Comment: Speci men Type: BLOOD SPECIMENOrdering Facility: [facility] Address: [address] [place] [address] Performed By: #### 5 8410-2 ####[facility]ORATORYCLIA [id number] [address] [place] [facility] MCV (RBC) [Entitic vol] 90.2 fL Normal 80.0-100.0 [facility] Comment on above: Order Comment: Speci men Type: BLOOD SPECIMENOrdering Facility: [facility] Address: [address] [place] [address] Performed By: #### 5 8410-2 ####[facility] LABORATORYCLIA [id number] [place] [address] [place] Nucleated RBC (Bld) [#/Vol] 10*3/uL Normal <0.01 [facility] Comment on above: Order Comment: Speci men Type: BLOOD SPECIMENOrdering Facility: [facility] Address: [address] [place] [address] Performed By: #### 5 8410-2 ####[facility] LABORATORYCLIA [id number] [place] [address] [place] Platelet mean volume (Bld) [Entitic vol] 9.9 fL Normal 9.0-12.7 [facility] Comment on above: Order Comment: Speci men Type: BLOOD SPECIMENOrdering Facility: [facility] Address: [address] [place] [address] Performed By: #### 5 8410-2 ####[facility]ORATORYCLIA [id number] [address] [place] Platelets (Bld) [#/Vol] 333 10*3/uL Normal 150-400 [facility] Comment on above: Order Comment: Speci men Type: BLOOD SPECIMENOrdering Facility: [facility] Address: [address] [place] [address] Performed By: #### 5 8410-2 ####[facility]ORATORYCLIA [id number] [place] [address] [place] RBC (Bld) [#/Vol] 3.38 10*6/uL Low 4.20-6.00 [facility] Comment on above: Order Comment: Speci men Type: BLOOD SPECIMENOrdering Facility: [facility] Address: [address] [address] Performed By: #### 5 8410-2 ####[facility] LABORATORYCLIA [id number] [place] [address] [place] WBC (Bld) [#/Vol] 9.71 10*3/uL Normal 3.70-11.00 [facility] Comment on above: Order Comment: Speci men Type: BLOOD SPECIMENOrdering Facility: [facility] Address: [address] [address] Performed By: #### 5 8410-2 ####[facility] LABORATORYCLIA [id number] [address] [place] CNDSon 06-28-2021 CNDS Normal [facility] CONSULT PROGon 06-28-2021 CONSULT PROG Normal [facility] Magnesium SerPl-mCncon 06-28 Magnesium [Mass/Vol] 2.2 mg/dL Normal 1.7-2.3 [facility] Comment on above: Order Comment: Speci men Type: BLOOD SPECIMENOrdering Facility: [facility] Address: [address] [address] Performed By: #### 2 4321-2, ####[facility]ORATORYCLIA [id number] [address] Vancomycin random [Mass/Vol] on 06-28-2021 Vancomycin [Mass/Vol] 23.0 ug/mL High 10.0-20.0 [facility] Comment on above: Order Comment: Speci men Type: BLOOD SPECIMENOrdering Facility: [facility] Address: [address] [place] [address] Result Comment: Refe rence ranges and high/low indicator flags are provided as general guidelines only. The treating physician must determine appropriate target levels/dosing based on the specific clinical situation. Performed By: #### 4 091-5 ####[facility]ORATORYCLIA [id number] [address] [facility] ALLIED HEALTHon 06-27-2021 ALLIED HEALTH Normal [facility] Basic metabolic 2000 panelon 06-27-2021 Anion gap [Moles/Vol] 10 mmol/L Normal 9-18 [facility] Comment on above: Order Comment: Speci men Type: BLOOD SPECIMENOrdering Facility: [facility] Address: [address] [address] Performed By: #### 2 4321-2, ####[facility]ORATORYCLIA [id number] [place] [address] [place] Calcium [Mass/Vol] 8.8 mg/dL Normal 8.5-10.2 [facility] Comment on above: Order Comment: Speci men Type: BLOOD SPECIMENOrdering Facility: [facility] Address: [address] [place] [address] Performed By: #### 2 4321-2, ####[facility] LABORATORYCLIA [id number] [place] [address] [place] Chloride [Moles/Vol] 104 mmol/L Normal 97-105 [facility] Comment on above: Order Comment: Speci men Type: BLOOD SPECIMENOrdering Facility: [facility] Address: [address] [place] [address] Performed By: #### 2 4321-2, ####[facility]ORATORYCLIA [id number] [address] [place] CO2 [Moles/Vol] 26 mmol/L Normal 22-30 [facility] Comment on above: Order Comment: Speci men Type: BLOOD SPECIMENOrdering Facility: [facility] Address: [address] [place] [address] Performed By: #### 2 4320-2, ####[facility]ORATORYCLIA [id number] [place] [address] [place] Creatinine [Mass/Vol] 0.57 mg/dL Low 0.73-1.22 [facility] Comment on above: Order Comment: Speci men Type: BLOOD SPECIMENOrdering Facility: [facility] Address: [address] [place] [address] Performed By: #### 2 4320-2, ####[facility] LABORATORYCLIA [id number] [address] [place] GFR/1.73 sq M.predicted MDRD (S/P/Bld) [Vol rate/Area] mL/min/{1.73_m2} Normal [facility] Comment on above: Order Comment: Speci men Type: BLOOD SPECIMENOrdering Facility: [facility] Address: [address] [place], [place] [id number] Result Comment: >60e GFR (Estimated GFR) Units [...] actual GFR. Performed By: #### 2 4321-2, 69861-6 ####[facility]ORATORYCLIA [id number] [place] [address] [place] Glucose [Mass/Vol] 133 mg/dL High 74-99 [facility] Comment on above: Order Comment: Shira feldman Type: BLOOD SPECIMENOrdering Facility: [facility] Address: [address] [place] [address] Result Comment: The [employer] [place] [employer] (ADA) provides guidance for cutoff [...] Standards of Medical Care in Diabetes 2016, [employer] [place] [employer]. Diabetes Care. 2016.39(Suppl 1). Performed By: #### 2 4321-2, 14909-0 ####[facility] LABORATORYCLIA [id number] [place] [address] [place] Potassium [Moles/Vol] 4.2 mmol/L Normal 3.7-5.1 [facility] Comment on above: Order Comment: Speci men Type: BLOOD SPECIMENOrdering Facility: [facility] Address: [address] [place] [address] Performed By: #### 2 4321-2, 16628-7 ####[facility] LABORATORYCLIA [id number] [address] Sodium [Moles/Vol] 140 mmol/L Normal 136-144 [facility] Comment on above: Order Comment: Speci men Type: BLOOD SPECIMENOrdering Facility: [facility] Address: [address] [place] [address] Performed By: #### 2 4321-2, ####[facility] LABORATORYCLIA [id number] [address] STATES OF [facility] Urea nitrogen [Mass/Vol] 24 mg/dL Normal 9-24 [facility] Comment on above: Order Comment: Speci men Type: BLOOD SPECIMENOrdering Facility: [facility] Address: [address] [place] [address] Performed By: #### 2 432-2, ####[facility]ORATORYCLIA [id number] [address] CASE MANAGEMon 06-27-2021 CASE MANAGEM Normal [facility] CBC panel Auto (Bld)on 06-27 Erythrocyte distribution width (RBC) [Ratio] 15.8 % High 11.5-15.0 [facility] Comment on above: Order Comment: Speci men Type: BLOOD SPECIMENOrdering Facility: [facility] Address: [address] [place] [address] Performed By: #### 5 8410-2 ####[facility]ORATORYCLIA [id number] [address] Hematocrit (Bld) [Volume fraction] 31.4 % Low 39.0-51.0 [facility] Comment on above: Order Comment: Speci men Type: BLOOD SPECIMENOrdering Facility: [facility] Address: [address] [place] [address] Performed By: #### 5 8410-2 ####[facility]ORATORYCLIA [id number] [address] Hemoglobin (Bld) [Mass/Vol] 9.3 g/dL Low 13.0-17.0 [facility] Comment on above: Order Comment: Speci men Type: BLOOD SPECIMENOrdering Facility: [facility] Address: [address] [place] [address] Performed By: #### 5 8410-2 ####[facility] LABORATORYCLIA [id number] [address] MCH (RBC) [Entitic mass] 27.0 pg Normal 26.0-34.0 [facility] Comment on above: Order Comment: Speci men Type: BLOOD SPECIMENOrdering Facility: [facility] Address: [address] [place] [address] Performed By: #### 5 8410-2 ####[facility] LABORATORYCLIA [id number] [address] MCHC (RBC) [Mass/Vol] 29.6 g/dL Low 30.5-36.0 [facility] Comment on above: Order Comment: Speci men Type: BLOOD SPECIMENOrdering Facility: [facility] Address: [address] [place] [address] Performed By: #### 5 8410-2 ####[facility]ORATORYCLIA [id number] [address] MCV (RBC) [Entitic vol] 91.3 fL Normal 80.0-100.0 [facility] Comment on above: Order Comment: Speci men Type: BLOOD SPECIMENOrdering Facility: [facility] Address: [address] [place] [address] Performed By: #### 5 8410-2 ####[facility]ORATORYCLIA [id number] [address] Nucleated RBC (Bld) [#/Vol] 10*3/uL Normal <0.01 [facility] Comment on above: Order Comment: Speci men Type: BLOOD SPECIMENOrdering Facility: [facility] Address: [address] [place] [address] Performed By: #### 5 8410-2 ####[facility]ORATORYCLIA [id number] [address] [place] Platelet mean volume (Bld) [Entitic vol] 10.3 fL Normal 9.0-12.7 [facility] Comment on above: Order Comment: Speci men Type: BLOOD SPECIMENOrdering Facility: [facility] Address: [address] [place] [address] Performed By: #### 5 8410-2 ####[facility]ORATORYCLIA [id number] [address] [place] Platelets (Bld) [#/Vol] 359 10*3/uL Normal 150-400 [facility] Comment on above: Order Comment: Speci men Type: BLOOD SPECIMENOrdering Facility: [facility] Address: [address] [place] [address] Performed By: #### 5 8410-2 ####[facility]ORATORYCLIA [id number] [place] [address] [place] RBC (Bld) [#/Vol] 3.44 10*6/uL Low 4.20-6.00 [facility] Comment on above: Order Comment: Speci men Type: BLOOD SPECIMENOrdering Facility: [facility] Address: [address] [place], [place] [address] Performed By: #### 5 8410-2 ####[facility]ORATORYCLIA [id number] [place] [address] [place] WBC (Bld) [#/Vol] 10.73 10*3/uL Normal 3.70-11.00 [facility] Comment on above: Order Comment: Speci men Type: BLOOD SPECIMENOrdering Facility: [facility] Address: [address] [place] [address] Performed By: #### 5 8410-2 ####[facility]ORATORYCLIA [id number] [place] [address] [place] Magnesium [facility] Magnesium [Mass/Vol] 2.2 mg/dL Normal 1.7-2.3 [facility] Comment on above: Order Comment: Speci men Type: BLOOD SPECIMENOrdering Facility: [facility] Address: [address] [place] [address] Performed By: #### 2 4321-2, 01345-6 ####[facility]ORATORYCLIA [id number] [place] [address] [place] NT-proBNP SerPl-Paoli Hospitalon 06-27 Natriuretic peptide.B prohormone N-Terminal [Mass/Vol] 184 pg/mL High <125 [facility] Comment on above: Order Comment: Speci men Type: BLOOD SPECIMENOrdering Facility: [facility] Address: [address] [place] [address] Performed By: #### 3 3762-6 ####[facility]ORATORYCLIA [id number] [place] [address] [place] NUTRITIONon 06-27-2021 NUTRITION [...] men Type: BLOOD SPECIMENOrdering Facility: [facility] Address: [address] [place] [address] Performed By: #### 1 9123-9, 35585-1 ####[facility]ORATORYCLIA [id number] [place] [address] [place] Calcium [Mass/Vol] 8.7 mg/dL Normal 8.5-10.2 [facility] Comment on above: Order Comment: Speci men Type: BLOOD SPECIMENOrdering Facility: [facility] Address: [address] [address] Performed By: #### 1 9123-9, 83486-8 ####[facility]ORATORYCLIA [id number] [address] [place] Chloride [Moles/Vol] 105 mmol/L Normal 97-105 [facility] Comment on above: Order Comment: Speci men Type: BLOOD SPECIMENOrdering Facility: [facility] Address: [address] [place] [address] Performed By: #### 1 9123-9, 33148-0 ####[facility]ORATORYCLIA [id number] [address] [place] CO2 [Moles/Vol] 26 mmol/L Normal 22-30 [facility] Comment on above: Order Comment: Speci men Type: BLOOD SPECIMENOrdering Facility: [facility] Address: [address] [place] [address] Performed By: #### 1 9123-9, 64679-9 ####[facility]ORATORYCLIA [id number] [place] [address] [place] Creatinine [Mass/Vol] 0.56 mg/dL Low 0.73-1.22 [facility] Comment on above: Order Comment: Speci men Type: BLOOD SPECIMENOrdering Facility: [facility] Address: [address] [place] [address] Performed By: #### 1 9123-9, 24015-2 ####[facility]ORATORYCLIA [id number] [place] [address] [place] GFR/1.73 sq M.predicted MDRD (S/P/Bld) [Vol rate/Area] mL/min/{1.73_m2} Normal [facility] Comment on above: Order Comment: Speci men Type: BLOOD SPECIMENOrdering Facility: [facility] Address: [address] [place] [address] Result Comment: >60e GFR (Estimated GFR) Units [...] actual GFR. Performed By: #### 1 9123-9, 47910-1 ####[facility]ITALCLIA [id number] [place] [address] [place] Glucose [Mass/Vol] 134 mg/dL High 74-99 [facility] Comment on above: Order Comment: Shira feldman Type: BLOOD SPECIMENOrdering Facility: [facility] Address: [address] [place] [address] Result Comment: The [employer] [place] [employer] (ADA) provides guidance for cutoff [...] Standards of Medical Care in Diabetes 2016, [employer] [place] [employer]. Diabetes Care. 2016.39(Suppl 1). Performed By: #### 1 9123-9, 28543-8 ####[facility]ORATORYCLIA [id number] [place] [address] [place] Potassium [Moles/Vol] 3.8 mmol/L Normal 3.7-5.1 [facility] Comment on above: Order Comment: Shira feldman Type: BLOOD SPECIMENOrdering Facility: [facility] Address: [address] [place], [place] [address] Performed By: #### 1 9123-9, 59184-0 ####[facility]ORATORYCLIA [id number] [address] STATES [facility] Sodium [Moles/Vol] 140 mmol/L Normal 136-144 [facility] Comment on above: Order Comment: Speci men Type: BLOOD SPECIMENOrdering Facility: [facility] Address: [address] [place] [address] Performed By: #### 1 9123-9, 08966-0 ####[facility]ORATORYCLIA [id number] [address] [place] Urea nitrogen [Mass/Vol] 24 mg/dL Normal 9-24 [facility] Comment on above: Order Comment: Speci men Type: BLOOD SPECIMENOrdering Facility: [facility] Address: [address] [place] [address] Performed By: #### 1 9123-9, 69928-5 ####[facility]ORATORYCLIA [id number] [address] STATES [facility] CBC panel Auto (Bld)on 06-26 Erythrocyte distribution width (RBC) [Ratio] 15.9 % High 11.5-15.0 [facility] Comment on above: Order Comment: Speci men Type: BLOOD SPECIMENOrdering Facility: [facility] Address: [address] [place] [address] Performed By: #### 5 8410-2 ####[facility]ORATORYCLIA [id number] [address] STATES [facility] Hematocrit (Bld) [Volume fraction] 29.8 % Low 39.0-51.0 [facility] Comment on above: Order Comment: Speci men Type: BLOOD SPECIMENOrdering Facility: [facility] Address: [address] [place] [address] Performed By: #### 5 8410-2 ####[facility]ORATORYCLIA [id number] [address] [place] Hemoglobin (Bld) [Mass/Vol] 9.1 g/dL Low 13.0-17.0 [facility] Comment on above: Order Comment: Speci men Type: BLOOD SPECIMENOrdering Facility: [facility] Address: [address] [place] [address] Performed By: #### 5 8410-2 ####[facility]ORATORYCLIA [id number] [address] MCH (RBC) [Entitic mass] 27.8 pg Normal 26.0-34.0 [facility] Comment on above: Order Comment: Speci men Type: BLOOD SPECIMENOrdering Facility: [facility] Address: [address] [place] [address] Performed By: #### 5 8410-2 ####[facility]ORATORYCLIA [id number] [address] MCHC (RBC) [Mass/Vol] 30.5 g/dL Normal 30.5-36.0 [facility] Comment on above: Order Comment: Speci men Type: BLOOD SPECIMENOrdering Facility: [facility] Address: [address] [place] [address] Performed By: #### 5 8410-2 ####[facility]ORATORYCLIA [id number] [address] MCV (RBC) [Entitic vol] 91.1 fL Normal 80.0-100.0 [facility] Comment on above: Order Comment: Speci men Type: BLOOD SPECIMENOrdering Facility: [facility] Address: [address] [place] [address] Performed By: #### 5 8410-2 ####[facility]ORATORYCLIA [id number] [address] Nucleated RBC (Bld) [#/Vol] 10*3/uL Normal <0.01 [facility] Comment on above: Order Comment: Speci men Type: BLOOD SPECIMENOrdering Facility: [facility] Address: [address] [place] [address] Performed By: #### 5 8410-2 ####[facility]ORATORYCLIA [id number] [address] [place] Platelet mean volume (Bld) [Entitic vol] 10.3 fL Normal 9.0-12.7 [facility] Comment on above: Order Comment: Speci men Type: BLOOD SPECIMENOrdering Facility: [facility] Address: [address] [place] [address] Performed By: #### 5 8410-2 ####[facility]ORATORYCLIA [id number] [address] [place] Platelets (Bld) [#/Vol] 336 10*3/uL Normal 150-400 [facility] Comment on above: Order Comment: Speci men Type: BLOOD SPECIMENOrdering Facility: [facility] Address: [address] [place] [address] Performed By: #### 5 8410-2 ####[facility]ORATORYCLIA [id number] [address] [place] RBC (Bld) [#/Vol] 3.27 10*6/uL Low 4.20-6.00 [facility] Comment on above: Order Comment: Speci men Type: BLOOD SPECIMENOrdering Facility: [facility] Address: [address] [place] [address] Performed By: #### 5 8410-2 ####[facility]ORATORYCLIA [id number] [address] [place] WBC (Bld) [#/Vol] 9.14 10*3/uL Normal 3.70-11.00 [facility] Comment on above: Order Comment: Speci men Type: BLOOD SPECIMENOrdering Facility: [facility] Address: [address] [place] [address] Performed By: #### 5 8410-2 ####[facility]ORATORYCLIA [id number] [address] [place] CONSULT PROGon 06-26-2021 CONSULT PROG Normal [facility] Magnesium SerPl-mCncon 02-20 -2022 Magnesium [Mass/Vol] 2.2 mg/dL Normal 1.7-2.3 [facility] Comment on above: Order Comment: Speci men Type: BLOOD SPECIMENOrdering Facility: [facility] Address: [address] [place] [address] Performed By: #### 1 9123-9, 98131-8 ####[facility] LABORATORYCLIA [id number] [address] [place] NURSING PROGon 06-26-2021 NURSING PROG Normal [facility] NURSING PROG Normal [facility] Basic metabolic 2000 panelon 06-25-2021 Anion gap [Moles/Vol] 8 mmol/L Low 9-18 [facility] Comment on above: Order Comment: Speci men Type: BLOOD SPECIMENOrdering Facility: [facility] Address: [address] [place] [address] Performed By: #### 2 4321-2, ####[facility]ORATORYCLIA [id number] [place] [address] [place] Calcium [Mass/Vol] 8.8 mg/dL Normal 8.5-10.2 [facility] Comment on above: Order Comment: Speci men Type: BLOOD SPECIMENOrdering Facility: [facility] Address: [address] [place] [address] Performed By: #### 2 4321-2, ####[facility]ORATORYCLIA [id number] [place] [address] [place] Chloride [Moles/Vol] 105 mmol/L Normal 97-105 [facility] Comment on above: Order Comment: Speci men Type: BLOOD SPECIMENOrdering Facility: [facility] Address: [address] [place] [address] Performed By: #### 2 4321-2, ####[facility]ORATORYCLIA [id number] [place] [address] [place] CO2 [Moles/Vol] 27 mmol/L Normal 22-30 [facility] Comment on above: Order Comment: Speci francia Type: BLOOD SPECIMENOrdering Facility: [facility] Address: [address] [id number] Performed By: #### 2 432-, ####[facility]ORATORYCLIA [id number] [place] [address] [place] Creatinine [Mass/Vol] 0.59 mg/dL Low 0.73-1.22 [facility] Comment on above: Order Comment: Speci men Type: BLOOD SPECIMENOrdering Facility: [facility] Address: [address] [place] [address] Performed By: #### 2 43205-08, ####[facility]CLIA [id number] [place] [address] [place] GFR/1.73 sq M.predicted MDRD (S/P/Bld) [Vol rate/Area] mL/min/{1.73_m2} Normal [facility] Comment on above: Order Comment: Shira francia Type: BLOOD SPECIMENOrdering Facility: [facility] Address: [address] [place] [address] Result Comment: >60e GFR (Estimated GFR) Units [...] actual GFR. Performed By: #### 2 432-, ####[facility]ORATORYCLIA [id number] [place] [address] [place] Glucose [Mass/Vol] 132 mg/dL High 74-99 [facility] Comment on above: Order Comment: Johncara feldman Type: BLOOD SPECIMENOrdering Facility: [facility] Address: [address] [place], [place] [phone] Result Comment: The [employer] [place] [employer] (ADA) provides guidance for cutoff [...] Standards of Medical Care in Diabetes 2016, [employer] [place] [employer]. Diabetes Care. 2016.39(Suppl 1). Performed By: #### 2 4320-06, ####[facility]ORATORYCLIA [id number] [place] [address] [place] Potassium [Moles/Vol] 3.9 mmol/L Normal 3.7-5.1 [facility] Comment on above: Order Comment: Speci men Type: BLOOD SPECIMENOrdering Facility: [facility] Address: [address] [address] Performed By: #### 2 4320-06, ####[facility]ORATORYCLIA [id number] [place] [address] [place] Sodium [Moles/Vol] 140 mmol/L Normal 136-144 [facility] Comment on above: Order Comment: Speci men Type: BLOOD SPECIMENOrdering Facility: [facility] Address: [address] [address] Performed By: #### 2 4320-06, ####[facility]ORATORYCLIA [id number] [place] [address] [place] Urea nitrogen [Mass/Vol] 24 mg/dL Normal 9-24 [facility] Comment on above: Order Comment: Speci men Type: BLOOD SPECIMENOrdering Facility: [facility] Address: [address] [address] Performed By: #### 2 4320-06, 15467-6 ####[facility]ORATORYCLIA [id number] [address] [place] CASE MANAGEMon 06-25-2021 CASE MANAGEM Normal [facility] CBC panel Auto (Bld)on 06-25 Erythrocyte distribution width (RBC) [Ratio] 15.9 % High 11.5-15.0 [facility] Comment on above: Order Comment: Speci men Type: BLOOD SPECIMENOrdering Facility: [facility] Address: [address] [place] [address] Performed By: #### 5 8410-2 ####[facility]ORATORYCLIA [id number] [address] Hematocrit (Bld) [Volume fraction] 31.0 % Low 39.0-51.0 [facility] Comment on above: Order Comment: Speci men Type: BLOOD SPECIMENOrdering Facility: [facility] Address: [address] [place] [address] Performed By: #### 5 8410-2 ####[facility]ORATORYCLIA [id number] [address] Hemoglobin (Bld) [Mass/Vol] 9.4 g/dL Low 13.0-17.0 [facility] Comment on above: Order Comment: Speci men Type: BLOOD SPECIMENOrdering Facility: [facility] Address: [address] [place] [address] Performed By: #### 5 8410-2 ####[facility]ORATORYCLIA [id number] [address] [place] MCH (RBC) [Entitic mass] 28.1 pg Normal 26.0-34.0 [facility] Comment on above: Order Comment: Speci men Type: BLOOD SPECIMENOrdering Facility: [facility] Address: [address] [place] [address] Performed By: #### 5 8410-2 ####[facility]ORATORYCLIA [id number] [address] [place] MCHC (RBC) [Mass/Vol] 30.3 g/dL Low 30.5-36.0 [facility] Comment on above: Order Comment: Speci men Type: BLOOD SPECIMENOrdering Facility: [facility] Address: [address] [place] [address] Performed By: #### 5 8410-2 ####[facility]ORATORYCLIA [id number] [address] [place] MCV (RBC) [Entitic vol] 92.5 fL Normal 80.0-100.0 [facility] Comment on above: Order Comment: Speci men Type: BLOOD SPECIMENOrdering Facility: [facility] Address: [address] [place] [address] Performed By: #### 5 8410-2 ####[facility]ORATORYCLIA [id number] [address] STATES OF [facility] Nucleated RBC (Bld) [#/Vol] 10*3/uL Normal <0.01 [facility] Comment on above: Order Comment: Speci men Type: BLOOD SPECIMENOrdering Facility: [facility] Address: [address] [place] [address] Performed By: #### 5 8410-2 ####[facility]ATORYCLIA [id number] [address] [place] Platelet mean volume (Bld) [Entitic vol] 10.5 fL Normal 9.0-12.7 [facility] Comment on above: Order Comment: Speci men Type: BLOOD SPECIMENOrdering Facility: [facility] Address: [address] [place] [address] Performed By: #### 5 8410-2 ####[facility]ATORYCLIA [id number] [address] [place] Platelets (Bld) [#/Vol] 311 10*3/uL Normal 150-400 [facility] Comment on above: Order Comment: Speci men Type: BLOOD SPECIMENOrdering Facility: [facility] Address: [address] [place] [address] Performed By: #### 5 8410-2 ####[facility]ATORYCLIA [id number] [address] STATES OF [facility] RBC (Bld) [#/Vol] 3.35 10*6/uL Low 4.20-6.00 [facility] Comment on above: Order Comment: Speci men Type: BLOOD SPECIMENOrdering Facility: [facility] Address: [address] [place] [address] Performed By: #### 5 8410-2 ####[facility]ORATORYCLIA [id number] [address] OF [facility] WBC (Bld) [#/Vol] 9.57 10*3/uL Normal 3.70-11.00 [facility] Comment on above: Order Comment: Speci men Type: BLOOD SPECIMENOrdering Facility: [facility] Address: [address] [place] [address] Performed By: #### 5 8410-2 ####[facility]ATORYCLIA [id number] [address] [place] Magnesium SerPl-mCncon 06-25 Magnesium [Mass/Vol] 2.4 mg/dL High 1.7-2.3 [facility] Comment on above: Order Comment: Speci men Type: BLOOD SPECIMENOrdering Facility: [facility] Address: [address] [place] [address] Performed By: #### 2 4321-2, 17799-0 ####[facility] LABORATORYCLIA [id number] [address] [place] Basic metabolic 2000 panelon 06-24-2021 Anion gap [Moles/Vol] 9 mmol/L Normal -18 [facility] Comment on above: Order Comment: Speci men Type: BLOOD SPECIMENOrdering Facility: [facility] Address: [address] [place] [address] Performed By: #### 1 9123-9, 90137-4 ####[facility] LABORATORYCLIA [id number] [place] [address] [place] Calcium [Mass/Vol] 8.6 mg/dL Normal 8.5-10.2 [facility] Comment on above: Order Comment: Speci men Type: BLOOD SPECIMENOrdering Facility: [facility] Address: [address] [place] [address] Performed By: #### 1 9123-9, 07572-9 ####[facility] LABORATORYCLIA [id number] [place] [address] [place] Chloride [Moles/Vol] 103 mmol/L Normal 97-105 [facility] Comment on above: Order Comment: Speci men Type: BLOOD SPECIMENOrdering Facility: [facility] Address: [address] [place] [address] Performed By: #### 1 9123-9, 06834-0 ####[facility] LABORATORYCLIA [id number] [address] [place] CO2 [Moles/Vol] 26 mmol/L Normal 22-30 [facility] Comment on above: Order Comment: Speci men Type: BLOOD SPECIMENOrdering Facility: [facility] Address: [address] [place] [address] Performed By: #### 1 9123-9, 34184-3 ####[facility] LABORATORYCLIA [id number] [place] [address] [place] Creatinine [Mass/Vol] 0.60 mg/dL Low 0.73-1.22 [facility] Comment on above: Order Comment: Speci men Type: BLOOD SPECIMENOrdering Facility: [facility] Address: [address] [place] [address] Performed By: #### 1 9123-9, 97158-3 ####[facility]ORATORYCLIA [id number] [place] [address] [place] GFR/1.73 sq M.predicted MDRD (S/P/Bld) [Vol rate/Area] mL/min/{1.73_m2} Normal [facility] Comment on above: Order Comment: Shira feldman Type: BLOOD SPECIMENOrdering Facility: [facility] Address: [address] [place], [place] [phone] Result Comment: >60e GFR (Estimated GFR) Units [...] actual GFR. Performed By: #### 1 9123-9, 16828-3 ####[facility]ORATORYCLIA [id number] [place] [address] [place] Glucose [Mass/Vol] 126 mg/dL High 74-99 [facility] Comment on above: Order Comment: Johncara feldman Type: BLOOD SPECIMENOrdering Facility: [facility] Address: [address] [place] [phone] Result Comment: The [employer] [place] [employer] (ADA) provides guidance for cutoff [...] Standards of Medical Care in Diabetes 2016, [employer] [place] [employer]. Diabetes Care. 2016.39(Suppl 1). Performed By: #### 1 9123-9, 35007-0 ####[facility] LABORATORYCLIA [id number] [place] [address] [place] Potassium [Moles/Vol] 3.9 mmol/L Normal 3.7-5.1 [facility] Comment on above: Order Comment: Speci men Type: BLOOD SPECIMENOrdering Facility: [facility] Address: [address] [place] [address] Performed By: #### 1 9123-9, 64819-5 ####[facility] LABORATORYCLIA [id number] [address] STATES OF [facility] Sodium [Moles/Vol] 138 mmol/L Normal 136-144 [facility] Comment on above: Order Comment: Speci men Type: BLOOD SPECIMENOrdering Facility: [facility] Address: [address] [place] [address] Performed By: #### 1 9123-9, 97984-5 ####[facility]ORATORYCLIA [id number] [address] [place] Urea nitrogen [Mass/Vol] 24 mg/dL Normal 9-24 [facility] Comment on above: Order Comment: Speci men Type: BLOOD SPECIMENOrdering Facility: [facility] Address: [address] [place] [address] Performed By: #### 1 9123-9, 51967-3 ####[facility] LABORATORYCLIA [id number] [address] OF [facility] CASE MANAGEMon 06-24-2021 CASE MANAGEM Normal [facility] CASE MANAGEM Normal [facility] CASE MANAGEM Normal [facility] CBC panel Auto (Bld)on 06-24 Erythrocyte distribution width (RBC) [Ratio] 16.1 % High 11.5-15.0 [facility] Comment on above: Order Comment: Speci men Type: BLOOD SPECIMENOrdering Facility: [facility] Address: [address] [place] [address] Performed By: #### 5 8410-2 ####[facility]ORATORYCLIA [id number] [address] [place] Hematocrit (Bld) [Volume fraction] 31.7 % Low 39.0-51.0 [facility] Comment on above: Order Comment: Speci men Type: BLOOD SPECIMENOrdering Facility: [facility] Address: [address] [place] [address] Performed By: #### 5 8410-2 ####[facility]ORATORYCLIA [id number] [address] Hemoglobin (Bld) [Mass/Vol] 9.7 g/dL Low 13.0-17.0 [facility] Comment on above: Order Comment: Speci men Type: BLOOD SPECIMENOrdering Facility: [facility] Address: [address] [place] [address] Performed By: #### 5 8410-2 ####[facility]ORATORYCLIA [id number] [address] MCH (RBC) [Entitic mass] 28.0 pg Normal 26.0-34.0 [facility] Comment on above: Order Comment: Speci men Type: BLOOD SPECIMENOrdering Facility: [facility] Address: [address] [place] [address] Performed By: #### 5 8410-2 ####[facility]ORATORYCLIA [id number] [address] MCHC (RBC) [Mass/Vol] 30.6 g/dL Normal 30.5-36.0 [facility] Comment on above: Order Comment: Speci men Type: BLOOD SPECIMENOrdering Facility: [facility] Address: [address] [place] [address] Performed By: #### 5 8410-2 ####[facility]ORATORYCLIA [id number] [address] MCV (RBC) [Entitic vol] 91.4 fL Normal 80.0-100.0 [facility] Comment on above: Order Comment: Speci men Type: BLOOD SPECIMENOrdering Facility: [facility] Address: [address] [place] [address] Performed By: #### 5 8410-2 ####[facility]ORATORYCLIA [id number] [address] Nucleated RBC (Bld) [#/Vol] 10*3/uL Normal <0.01 [facility] Comment on above: Order Comment: Speci men Type: BLOOD SPECIMENOrdering Facility: [facility] Address: [address] [place] [address] Performed By: #### 5 8410-2 ####[facility] LABORATORYCLIA [id number] [address] [place] Platelet mean volume (Bld) [Entitic vol] 11.0 fL Normal 9.0-12.7 [facility] Comment on above: Order Comment: Speci men Type: BLOOD SPECIMENOrdering Facility: [facility] Address: [address] [place] [address] Performed By: #### 5 8410-2 ####[facility]ORATORYCLIA [id number] [address] Platelets (Bld) [#/Vol] 358 10*3/uL Normal 150-400 [facility] Comment on above: Order Comment: Speci men Type: BLOOD SPECIMENOrdering Facility: [facility] Address: [address] [place] [address] Performed By: #### 5 8410-2 ####[facility]ORATORYCLIA [id number] [address] [place] RBC (Bld) [#/Vol] 3.47 10*6/uL Low 4.20-6.00 [facility] Comment on above: Order Comment: Speci men Type: BLOOD SPECIMENOrdering Facility: [facility] Address: [address] [place] [address] Performed By: #### 5 8410-2 ####[facility]ORATORYCLIA [id number] [address] [place] WBC (Bld) [#/Vol] 10.07 10*3/uL Normal 3.70-11.00 [facility] Comment on above: Order Comment: Speci men Type: BLOOD SPECIMENOrdering Facility: [facility] Address: [address] [place] [address] Performed By: #### 5 8410-2 ####[facility]ORATORYCLIA [id number] [place] [address] [place] Magnesium SerPl-mCncon 06-24 Magnesium [Mass/Vol] 2.3 mg/dL Normal 1.7-2.3 [facility] Comment on above: Order Comment: Speci men Type: BLOOD SPECIMENOrdering Facility: [facility] Address: [address] [place] [address] Performed By: #### 1 9123-9, 71339-4 ####[facility]ORATORYCLIA [id number] [place] [address] [place] ALLIED HEALTHon 06-23-2021 ALLIED HEALTH Normal [facility] Basic metabolic 2000 panelon 06-23-2021 Anion gap [Moles/Vol] 9 mmol/L Normal 9-18 [facility] Comment on above: Order Comment: Speci men Type: BLOOD SPECIMENOrdering Facility: [facility] Address: [address] [place] [address] Performed By: #### 1 9123-9, 87914-8 ####[facility]ORATORYCLIA [id number] [place] [address] [place] Calcium [Mass/Vol] 8.4 mg/dL Low 8.5-10.2 [facility] Comment on above: Order Comment: Speci men Type: BLOOD SPECIMENOrdering Facility: [facility] Address: [address] [place], [place] [address] Performed By: #### 1 9123-9, 33796-1 ####[facility]ORATORYCLIA [id number] [place] [address] [place] Chloride [Moles/Vol] 104 mmol/L Normal 97-105 [facility] Comment on above: Order Comment: Speci men Type: BLOOD SPECIMENOrdering Facility: [facility] Address: [address] [place] [address] Performed By: #### 1 91239, ####[facility]ORATORYCLIA [id number] [place] [address] [place] [facility] CO2 [Moles/Vol] 26 mmol/L Normal 22-30 [facility] Comment on above: Order Comment: Speci men Type: BLOOD SPECIMENOrdering Facility: [facility] Address: [address] [place] [address] Performed By: #### 1 919, ####[facility]CLIA [id number] [place] [address] [place] Creatinine [Mass/Vol] 0.62 mg/dL Low 0.73-1.22 [facility] Comment on above: Order Comment: Speci men Type: BLOOD SPECIMENOrdering Facility: [facility] Address: [address] [place] [address] Performed By: #### 1 91239, ####[facility]ITALCLIA [id number] [address] [place] GFR/1.73 sq M.predicted MDRD (S/P/Bld) [Vol rate/Area] mL/min/{1.73_m2} Normal [facility] Comment on above: Order Comment: Speci men Type: BLOOD SPECIMENOrdering Facility: [facility] Address: [address] [place] [address] Result Comment: >60e GFR (Estimated GFR) Units [...] actual GFR. Performed By: #### 1 9123-9, 39168-4 ####[facility]ORATORYCLIA [id number] [place] [address] [place] Glucose [Mass/Vol] 111 mg/dL High 74-99 [facility] Comment on above: Order Comment: Shira men Type: BLOOD SPECIMENOrdering Facility: [facility] Address: [address] [place] [address] Result Comment: The [employer] [place] [employer] (ADA) provides guidance for cutoff [...] Standards of Medical Care in Diabetes 2016, [employer] [place] [employer]. Diabetes Care. 2016.39(Suppl 1). Performed By: #### 1 9123-9, 96441-5 ####[facility]ORATORYCLIA [id number] [place] [address] [place] Potassium [Moles/Vol] 4.1 mmol/L Normal 3.7-5.1 [facility] Comment on above: Order Comment: Shira feldman Type: BLOOD SPECIMENOrdering Facility: [facility] Address: [address] [place] [address] Performed By: #### 1 9123-9, 36305-1 ####[facility]ORATORYCLIA [id number] [place] [address] [place] Sodium [Moles/Vol] 139 mmol/L Normal 136-144 [facility] Comment on above: Order Comment: Shira francia Type: BLOOD SPECIMENOrdering Facility: [facility] Address: [address] [place] [address] Performed By: #### 1 9123-9, 60196-5 ####[facility]ORATORYCLIA [id number] [place] [address] [place] Urea nitrogen [Mass/Vol] 26 mg/dL High 9-24 [facility] Comment on above: Order Comment: Speci men Type: BLOOD SPECIMENOrdering Facility: [facility] Address: [address] [place] [address] Performed By: #### 1 9123-9, 24604-5 ####[facility]ORATORYCLIA [id number] [address] [place] CASE MANAGEMon 06-23-2021 CASE MANAGEM Normal [facility] CBC panel Auto (Bld)on 06-23 Erythrocyte distribution width (RBC) [Ratio] 16.0 % High 11.5-15.0 [facility] Comment on above: Order Comment: Speci men Type: BLOOD SPECIMENOrdering Facility: [facility] Address: [address] [place] [address] Performed By: #### 5 8410-2 ####[facility]ORATORYCLIA [id number] [address] [place] Hematocrit (Bld) [Volume fraction] 31.1 % Low 39.0-51.0 [facility] Comment on above: Order Comment: Speci men Type: BLOOD SPECIMENOrdering Facility: [facility] Address: [address] [place] [address] Performed By: #### 5 8410-2 ####[facility]ORATORYCLIA [id number] [place] [address] [place] Hemoglobin (Bld) [Mass/Vol] 9.5 g/dL Low 13.0-17.0 [facility] Comment on above: Order Comment: Speci men Type: BLOOD SPECIMENOrdering Facility: [facility] Address: [address] [place] [address] Performed By: #### 5 8410-2 ####[facility]ORATORYCLIA [id number] [address] [place] MCH (RBC) [Entitic mass] 28.1 pg Normal 26.0-34.0 [facility] Comment on above: Order Comment: Speci men Type: BLOOD SPECIMENOrdering Facility: [facility] Address: [address] [place] [address] Performed By: #### 5 8410-2 ####[facility]ORATORYCLIA [id number] [address] MCHC (RBC) [Mass/Vol] 30.5 g/dL Normal 30.5-36.0 [facility] Comment on above: Order Comment: Speci men Type: BLOOD SPECIMENOrdering Facility: [facility] Address: [address] [place] [address] Performed By: #### 5 8410-2 ####[facility]ORATORYCLIA [id number] [address] MCV (RBC) [Entitic vol] 92.0 fL Normal 80.0-100.0 [facility] Comment on above: Order Comment: Speci men Type: BLOOD SPECIMENOrdering Facility: [facility] Address: [address] [place] [address] Performed By: #### 5 8410-2 ####[facility]ORATORYCLIA [id number] [address] Nucleated RBC (Bld) [#/Vol] 10*3/uL Normal <0.01 [facility] Comment on above: Order Comment: Speci men Type: BLOOD SPECIMENOrdering Facility: [facility] Address: [address] [place] [address] Performed By: #### 5 8410-2 ####[facility]ORATORYCLIA [id number] [address] Platelet mean volume (Bld) [Entitic vol] 11.0 fL Normal 9.0-12.7 [facility] Comment on above: Order Comment: Speci men Type: BLOOD SPECIMENOrdering Facility: [facility] Address: [address] [place] [address] Performed By: #### 5 8410-2 ####[facility] LABORATORYCLIA [id number] [address] [facility] Platelets (Bld) [#/Vol] 361 10*3/uL Normal 150-400 [facility] Comment on above: Order Comment: Speci men Type: BLOOD SPECIMENOrdering Facility: [facility] Address: [address] [place] [address] Performed By: #### 5 8410-2 ####[facility]ORATORYCLIA [id number] [place] [address] [place] RBC (Bld) [#/Vol] 3.38 10*6/uL Low 4.20-6.00 [facility] Comment on above: Order Comment: Speci men Type: BLOOD SPECIMENOrdering Facility: [facility] Address: [address] [place] [address] Performed By: #### 5 8410-2 ####[facility] LABORATORYCLIA [id number] [address] WBC (Bld) [#/Vol] 9.02 10*3/uL Normal 3.70-11.00 [facility] Comment on above: Order Comment: Speci men Type: BLOOD SPECIMENOrdering Facility: [facility] Address: [address] [place] [address] Performed By: #### 5 8410-2 ####[facility]ORATORYCLIA [id number] [address] CONSULT PROGon 06-23-2021 CONSULT PROG Normal [facility] CONSULT PROG Normal [facility] Magnesium SerPl-mCncon 06-23 Magnesium [Mass/Vol] 2.4 mg/dL High 1.7-2.3 [facility] Comment on above: Order Comment: Speci men Type: BLOOD SPECIMENOrdering Facility: [facility] Address: [address] [place] [address] Performed By: #### 1 9123-9, 07306-6 ####[facility]ORATORYCLIA [id number] [address] THERAPY NTon 06-23-2021 THERAPY NT Normal [facility] Vancomycin random [Mass/Vol] on 06-23-2021 Vancomycin [Mass/Vol] 22.8 ug/mL High 10.0-20.0 [facility] Comment on above: Order Comment: Speci men Type: BLOOD SPECIMENOrdering Facility: [facility] Address: [address] [place] [address] Result Comment: Refe rence ranges and high/low indicator flags are provided as general guidelines only. The treating physician must determine appropriate target levels/dosing based on the specific clinical situation. Performed By: #### 4 091-5 ####[facility]ORATORYCLIA [id number] [place] [address] [place] XR MOD BARIUM SWALLOW W SPEE Lore 06-23-2021 XR MOD BARIUM SWALLOW W SPEECH Normal [facility] Basic metabolic 2000 panelon 06-22-2021 Anion gap [Moles/Vol] 6 mmol/L Low 9-18 [facility] Comment on above: Order Comment: Speci men Type: BLOOD SPECIMENOrdering Facility: [facility] Address: [address] [place] [address] Performed By: #### 2 4321-2, ####[facility]ORATORYCLIA [id number] [place] [address] [place] Calcium [Mass/Vol] 8.5 mg/dL Normal 8.5-10.2 [facility] Comment on above: Order Comment: Speci men Type: BLOOD SPECIMENOrdering Facility: [facility] Address: [address] [place] [address] Performed By: #### 2 4321-2, ####[facility]ORATORYCLIA [id number] [place] [address] [place] Chloride [Moles/Vol] 105 mmol/L Normal 97-105 [facility] Comment on above: Order Comment: Speci men Type: BLOOD SPECIMENOrdering Facility: [facility] Address: [address] [place] [address] Performed By: #### 2 43205-08, ####[facility]ORATORYCLIA [id number] [place] [address] [place] CO2 [Moles/Vol] 26 mmol/L Normal 22-30 [facility] Comment on above: Order Comment: Speci men Type: BLOOD SPECIMENOrdering Facility: [facility] Address: [address] [place] [address] Performed By: #### 2 4320-06, ####[facility]IA [id number] [place] [address] [place] Creatinine [Mass/Vol] 0.56 mg/dL Low 0.73-1.22 [facility] Comment on above: Order Comment: Speci men Type: BLOOD SPECIMENOrdering Facility: [facility] Address: [address] [place] [address] Performed By: #### 2 43205-08, ####[facility]CLIA [id number] [address] [place] GFR/1.73 sq M.predicted MDRD (S/P/Bld) [Vol rate/Area] mL/min/{1.73_m2} Normal [facility] Comment on above: Order Comment: Speci men Type: BLOOD SPECIMENOrdering Facility: [facility] Address: [address] [place] [address] Result Comment: >60e GFR (Estimated GFR) Units [...] #### 2 43205-08, ####[facility]ORATORYCLIA [id number] [place] [address] [place] Glucose [Mass/Vol] 120 mg/dL High 74-99 [facility] Comment on above: Order Comment: Shira feldman Type: BLOOD SPECIMENOrdering Facility: [facility] Address: [address] [place] [address] Result Comment: The [employer] [place] [employer] (ADA) provides guidance for cutoff [...] Standards of Medical Care in Diabetes 2016, [employer] [place] [employer]. Diabetes Care. 2016.39(Suppl 1). Performed By: #### 2 ####[facility]ORATORYCLIA [id number] [place] [address] [place] Potassium [Moles/Vol] 4.0 mmol/L Normal 3.7-5.1 [facility] Comment on above: Order Comment: Shira feldman Type: BLOOD SPECIMENOrdering Facility: [facility] Address: [address] [place] [address] Performed By: #### 2 ####[facility]ORATORYCLIA [id number] [place] [address] [place] Sodium [Moles/Vol] 137 mmol/L Normal 136-144 [facility] Comment on above: Order Comment: Shira feldman Type: BLOOD SPECIMENOrdering Facility: [facility] Address: [address] [place] [address] Performed By: #### 2 ####[facility]ORATORYCLIA [id number] [place] [address] [place] Urea nitrogen [Mass/Vol] 25 mg/dL High 9-24 [facility] Comment on above: Order Comment: Speci men Type: BLOOD SPECIMENOrdering Facility: [facility] Address: [address] [place] [address] Performed By: #### 2 4321-2, 92409-1 ####[facility]ORATORYCLIA [id number] [address] [place] CASE MANAGEMon 06-22-2021 CASE MANAGEM Normal [facility] CBC panel Auto (Bld)on 06-22 Erythrocyte distribution width (RBC) [Ratio] 16.0 % High 11.5-15.0 [facility] Comment on above: Order Comment: Speci men Type: BLOOD SPECIMENOrdering Facility: [facility] Address: [address] [place] [address] Performed By: #### 5 8410-2 ####[facility]ATORYCLIA [id number] [address] [place] Hematocrit (Bld) [Volume fraction] 30.5 % Low 39.0-51.0 [facility] Comment on above: Order Comment: Speci men Type: BLOOD SPECIMENOrdering Facility: [facility] Address: [address] [place] [address] Performed By: #### 5 8410-2 ####[facility]ORATORYCLIA [id number] [place] [address] [place] Hemoglobin (Bld) [Mass/Vol] 9.3 g/dL Low 13.0-17.0 [facility] Comment on above: Order Comment: Speci men Type: BLOOD SPECIMENOrdering Facility: [facility] Address: [address] [place] [address] Performed By: #### 5 8410-2 ####[facility]ATORYCLIA [id number] [address] [place] MCH (RBC) [Entitic mass] 28.4 pg Normal 26.0-34.0 [facility] Comment on above: Order Comment: Speci men Type: BLOOD SPECIMENOrdering Facility: [facility] Address: [address] [place] [address] Performed By: #### 5 8410-2 ####[facility]ATORYCLIA [id number] [address] MCHC (RBC) [Mass/Vol] 30.5 g/dL Normal 30.5-36.0 [facility] Comment on above: Order Comment: Speci men Type: BLOOD SPECIMENOrdering Facility: [facility] Address: [address] [place] [address] Performed By: #### 5 8410-2 ####[facility]ATORYCLIA [id number] [address] MCV (RBC) [Entitic vol] 93.3 fL Normal 80.0-100.0 [facility] Comment on above: Order Comment: Speci men Type: BLOOD SPECIMENOrdering Facility: [facility] Address: [address] [place] [address] Performed By: #### 5 8410-2 ####[facility] LABORATORYCLIA [id number] [address] Nucleated RBC (Bld) [#/Vol] 10*3/uL Normal <0.01 [facility] Comment on above: Order Comment: Speci men Type: BLOOD SPECIMENOrdering Facility: [facility] Address: [address] [place] [address] Performed By: #### 5 8410-2 ####[facility] LABORATORYCLIA [id number] [address] Platelet mean volume (Bld) [Entitic vol] 11.5 fL Normal 9.0-12.7 [facility] Comment on above: Order Comment: Speci men Type: BLOOD SPECIMENOrdering Facility: [facility] Address: [address] [place] [address] Performed By: #### 5 8410-2 ####[facility] LABORATORYCLIA [id number] [address] Platelets (Bld) [#/Vol] 346 10*3/uL Normal 150-400 [facility] Comment on above: Order Comment: Speci men Type: BLOOD SPECIMENOrdering Facility: [facility] Address: [address] [place] [address] Performed By: #### 5 8410-2 ####[facility] LABORATORYCLIA [id number] [place] [address] [place] RBC (Bld) [#/Vol] 3.27 10*6/uL Low 4.20-6.00 [facility] Comment on above: Order Comment: Speci men Type: BLOOD SPECIMENOrdering Facility: [facility] Address: [address] [place] [address] Performed By: #### 5 8410-2 ####[facility] LABORATORYCLIA [id number] [address] OF [facility] WBC (Bld) [#/Vol] 9.44 10*3/uL Normal 3.70-11.00 [facility] Comment on above: Order Comment: Speci men Type: BLOOD SPECIMENOrdering Facility: [facility] Address: [address] [place] [address] Performed By: #### 5 8410-2 ####[facility] LABORATORYCLIA [id number] [address] OF [place] HEMOGLOBIN (HGB)on 2 Hemoglobin (Bld) [Mass/Vol] 9.7 g/dL Low 13.0-17.0 [facility] Comment on above: Order Comment: Speci men Type: BLOOD SPECIMENOrdering Facility: [facility] Address: [address] [place] [address] Performed By: #### H GB ####[facility] LABORATORYCLIA [id number] [address] [facility] Magnesium SerPl-mCncon 06-22 Magnesium [Mass/Vol] 2.4 mg/dL High 1.7-2.3 [facility] Comment on above: Order Comment: Speci men Type: BLOOD SPECIMENOrdering Facility: [facility] Address: [address] [place] [address] Performed By: #### 2 4321-2, ####[facility] LABORATORYCLIA [id number] [address] [facility] THERAPY NTon 06-22-2021 THERAPY NT Normal [facility] THERAPY NT Normal [facility] aPTT PPPon 06-22-2021 aPTT Coag (PPP) [Time] 62.3 s High 23.0-32.4 [facility] Comment on above: Order Comment: Speci men Type: BLOOD SPECIMENOrdering Facility: [facility] Address: [address] [place] [address] Performed By: #### 1 4979-9 ####[facility] LABORATORYCLIA [id number] [address] [place] ALLIED HEALTHon 06-21-2021 ALLIED HEALTH Normal [facility] Basic metabolic 2000 panelon 06-21-2021 Anion gap [Moles/Vol] 8 mmol/L Low 9-18 [facility] Comment on above: Order Comment: Speci men Type: BLOOD SPECIMENOrdering Facility: [facility] Address: [address] [place] [address] Performed By: #### 2 4321-2, ####[facility] LABORATORYCLIA [id number] [place] [address] [place] Calcium [Mass/Vol] 8.2 mg/dL Low 8.5-10.2 [facility] Comment on above: Order Comment: Speci men Type: BLOOD SPECIMENOrdering Facility: [facility] Address: [address] [place] [address] Performed By: #### 2 4321-2, ####[facility] LABORATORYCLIA [id number] [address] [place] Chloride [Moles/Vol] 108 mmol/L High 97-105 [facility] Comment on above: Order Comment: Speci men Type: BLOOD SPECIMENOrdering Facility: [facility] Address: [address] [place] [address] Performed By: #### 2 432-2, ####[facility] LABORATORYCLIA [id number] [address] STATES OF [facility] CO2 [Moles/Vol] 24 mmol/L Normal 22-30 [facility] Comment on above: Order Comment: Speci men Type: BLOOD SPECIMENOrdering Facility: [facility] Address: [address] [place] [address] Performed By: #### 2 4321-2, ####[facility] LABORATORYCLIA [id number] [address] [facility] Creatinine [Mass/Vol] 0.61 mg/dL Low 0.73-1.22 [facility] Comment on above: Order Comment: Speci men Type: BLOOD SPECIMENOrdering Facility: [facility] Address: [address] [place] [address] Performed By: #### 2 43205-08, ####[facility] LABORATORYCLIA [id number] [address] [place] GFR/1.73 sq M.predicted MDRD (S/P/Bld) [Vol rate/Area] mL/min/{1.73_m2} Normal [facility] Comment on above: Order Comment: Speci men Type: BLOOD SPECIMENOrdering Facility: [facility] Address: [address] [place] [address] Result Comment: >60e GFR (Estimated GFR) Units [...] actual GFR. Performed By: #### 2 432-, ####[facility] LABORATORYCLIA [id number] [place] [address] [place] Glucose [Mass/Vol] 211 mg/dL High 74-99 [facility] Comment on above: Order Comment: [facility] Type: BLOOD SPECIMENOrdering Facility: [facility] Address: [address] [place] [address] Result Comment: The [place] [employer] (ADA) provides guidance for cutoff [...] Standards of Medical Care in Diabetes 2016, [employer] [place] [employer]. Diabetes Care. 2016.39(Suppl 1). Performed By: #### 2 43205-08, ####[facility] LABORATORYCLIA [id number] [place] [address] [place] Potassium [Moles/Vol] 4.3 mmol/L Normal 3.7-5.1 [facility] Comment on above: Order Comment: [facility] Type: BLOOD SPECIMENOrdering Facility: [facility] Address: [address] Performed By: #### 2 43205-08, ####[facility] LABORATORYCLIA [id number] [place] [address] [place] Sodium [Moles/Vol] 140 mmol/L Normal 136-144 [facility] Comment on above: Order Comment: Shira feldman Type: BLOOD SPECIMENOrdering Facility: [facility] Address: [address] [address] Performed By: #### 2 1-2, ####[facility] LABORATORYCLIA [id number] [place] [address] [place] [facility] Urea nitrogen [Mass/Vol] 26 mg/dL High 9-24 [facility] Comment on above: Order Comment: Speci men Type: BLOOD SPECIMENOrdering Facility: [facility] Address: [address] [place] [address] Performed By: #### 2 4320-2, ####[facility] LABORATORYCLIA [id number] [address] CBC panel Auto (Bld)on 06-21 Erythrocyte distribution width (RBC) [Ratio] 16.1 % High 11.5-15.0 [facility] Comment on above: Order Comment: Speci men Type: BLOOD SPECIMENOrdering Facility: [facility] Address: [address] [place] [address] Performed By: #### 5 8410-2 ####[facility] LABORATORYCLIA [id number] [address] STATES [facility] Hematocrit (Bld) [Volume fraction] 29.7 % Low 39.0-51.0 [facility] Comment on above: Order Comment: Speci men Type: BLOOD SPECIMENOrdering Facility: [facility] Address: [address] [place] [address] Performed By: #### 5 8410-2 ####[facility] LABORATORYCLIA [id number] [address] STATES [facility] Hemoglobin (Bld) [Mass/Vol] 9.2 g/dL Low 13.0-17.0 [facility] Comment on above: Order Comment: Speci men Type: BLOOD SPECIMENOrdering Facility: [facility] Address: [address] [place] [address] Performed By: #### 5 8410-2 ####[facility] LABORATORYCLIA [id number] [address] [place] MCH (RBC) [Entitic mass] 28.8 pg Normal 26.0-34.0 [facility] Comment on above: Order Comment: Speci men Type: BLOOD SPECIMENOrdering Facility: [facility] Address: [address] [place] [address] Performed By: #### 5 8410-2 ####[facility] LABORATORYCLIA [id number] [address] MCHC (RBC) [Mass/Vol] 31.0 g/dL Normal 30.5-36.0 [facility] Comment on above: Order Comment: Speci men Type: BLOOD SPECIMENOrdering Facility: [facility] Address: [address] [place] [address] Performed By: #### 5 8410-2 ####[facility] LABORATORYCLIA [id number] [address] MCV (RBC) [Entitic vol] 93.1 fL Normal 80.0-100.0 [facility] Comment on above: Order Comment: Speci men Type: BLOOD SPECIMENOrdering Facility: [facility] Address: [address] [place] [address] Performed By: #### 5 8410-2 ####[facility] LABORATORYCLIA [id number] [address] Nucleated RBC (Bld) [#/Vol] 10*3/uL Normal <0.01 [facility] Comment on above: Order Comment: Speci men Type: BLOOD SPECIMENOrdering Facility: [facility] Address: [address] [place] [address] Performed By: #### 5 8410-2 ####[facility] LABORATORYCLIA [id number] [address] Platelet mean volume (Bld) [Entitic vol] 11.6 fL Normal 9.0-12.7 [facility] Comment on above: Order Comment: Speci men Type: BLOOD SPECIMENOrdering Facility: [facility] Address: [address] [place] [address] Performed By: #### 5 8410-2 ####[facility] LABORATORYCLIA [id number] [place] [address] [place] Platelets (Bld) [#/Vol] 347 10*3/uL Normal 150-400 [facility] Comment on above: Order Comment: Speci men Type: BLOOD SPECIMENOrdering Facility: [facility] Address: [address] [place] [address] Performed By: #### 5 8410-2 ####[facility] LABORATORYCLIA [id number] [place] [address] [place] RBC (Bld) [#/Vol] 3.19 10*6/uL Low 4.20-6.00 [facility] Comment on above: Order Comment: Speci men Type: BLOOD SPECIMENOrdering Facility: [facility] Address: [address] [place] [address] Performed By: #### 5 8410-2 ####[facility] LABORATORYCLIA [id number] [address] [facility] WBC (Bld) [#/Vol] 10.29 10*3/uL Normal 3.70-11.00 [facility] Comment on above: Order Comment: Speci men Type: BLOOD SPECIMENOrdering Facility: [facility] Address: [address] [place] [address] Performed By: #### 5 8410-2 ####[facility] LABORATORYCLIA [id number] [address] [place] CONSULT PROGon 06-21-2021 CONSULT PROG Normal [facility] CONSULT PROG Normal [facility] Magnesium SerPl-mCncon 06-21 Magnesium [Mass/Vol] 2.5 mg/dL High 1.7-2.3 [facility] Comment on above: Order Comment: Speci men Type: BLOOD SPECIMENOrdering Facility: [facility] Address: [address] [place] [address] Performed By: #### 2 4321-2, 77299-7 ####[facility] LABORATORYCLIA [id number] [place] [address] [place] NUTRITIONon 06-21-2021 NUTRITION Normal [facility] XR CHEST 1V FRONTALon 2021 XR CHEST 1V FRONTAL Normal [facility] aPTT PPPon 06-21-2021 aPTT Coag (PPP) [Time] 68.5 s High 23.0-32.4 [facility] Comment on above: Order Comment: Speci men Type: BLOOD SPECIMENOrdering Facility: [facility] Address: [address] [place] [address] Performed By: #### 1 4979-9 ####[facility] LABORATORYCLIA [id number] [address] [place] aPTT Coag (PPP) [Time] 57.8 s High 23.0-32.4 [facility] Comment on above: Order Comment: Speci men Type: BLOOD SPECIMENOrdering Facility: [facility] Address: [address] [place] [address] Performed By: #### 1 4979-9 ####[facility] LABORATORYCLIA [id number] [place] [address] [place] Basic metabolic 2000 panelon 06-20-2021 Anion gap [Moles/Vol] 9 mmol/L Normal 9-18 [facility] Comment on above: Order Comment: Speci men Type: BLOOD SPECIMENOrdering Facility: [facility] Address: [address] [place] [address] Performed By: #### 2 4321-2, ####[facility] LABORATORYCLIA [id number] [place] [address] [place] Calcium [Mass/Vol] 8.3 mg/dL Low 8.5-10.2 [facility] Comment on above: Order Comment: Speci men Type: BLOOD SPECIMENOrdering Facility: [facility] Address: [address] [place] [address] Performed By: #### 2 4321-2, ####[facility] LABORATORYCLIA [id number] [address] [place] Chloride [Moles/Vol] 111 mmol/L High 97-105 [facility] Comment on above: Order Comment: Speci men Type: BLOOD SPECIMENOrdering Facility: [facility] Address: [address] [place] [address] Performed By: #### 2 4321-2, ####[facility] LABORATORYCLIA [id number] [place] [address] [place] CO2 [Moles/Vol] 24 mmol/L Normal 22-30 [facility] Comment on above: Order Comment: Speci men Type: BLOOD SPECIMENOrdering Facility: [facility] Address: [address] [place] [address] Performed By: #### 2 4321-2, ####[facility] LABORATORYCLIA [id number] [address] [place] Creatinine [Mass/Vol] 0.64 mg/dL Low 0.73-1.22 [facility] Comment on above: Order Comment: Speci men Type: BLOOD SPECIMENOrdering Facility: [facility] Address: [address] [place] [address] Performed By: #### 2 4321-2, ####[facility] LABORATORYCLIA [id number] [place] [address] [place] GFR/1.73 sq M.predicted MDRD (S/P/Bld) [Vol rate/Area] mL/min/{1.73_m2} Normal [facility] Comment on above: Order Comment: Speci men Type: BLOOD SPECIMENOrdering Facility: [facility] Address: [address] [place] [address] Result Comment: >60e GFR (Estimated GFR) Units [...] actual GFR. Performed By: #### 2 4320-06, ####[facility] LABORATORYCLIA [id number] [place] [address] [place] Glucose [Mass/Vol] 114 mg/dL High 74-99 [facility] Comment on above: Order Comment: Speci men Type: BLOOD SPECIMENOrdering Facility: [facility] Address: [address] [place], [place] [id number] Result Comment: The [employer] [place] [employer] (ADA) provides guidance for cutoff [...] Standards of Medical Care in Diabetes 2016, [employer] [place] [employer]. Diabetes Care. 2016.39(Suppl 1). Performed By: #### 2 4320-06, ####[facility] LABORATORYCLIA [id number] [place] [address] [place] Potassium [Moles/Vol] 4.1 mmol/L Normal 3.7-5.1 [facility] Comment on above: Order Comment: Speci men Type: BLOOD SPECIMENOrdering Facility: [facility] Address: [address] [place] [address] Performed By: #### 2 4320-06, ####[facility] LABORATORYCLIA [id number] [place] [address] [place] Sodium [Moles/Vol] 144 mmol/L Normal 136-144 [facility] Comment on above: Order Comment: Speci men Type: BLOOD SPECIMENOrdering Facility: [facility] Address: [address] [place] [address] Performed By: #### 2 4321-2, 89915-9 ####[facility] LABORATORYCLIA [id number] [address] [place] Urea nitrogen [Mass/Vol] 27 mg/dL High 9-24 [facility] Comment on above: Order Comment: Speci men Type: BLOOD SPECIMENOrdering Facility: [facility] Address: [address] [place] [address] Performed By: #### 2 4321-2, 24170-3 ####[facility] LABORATORYCLIA [id number] [address] [place] CASE MANAGEMon 06-20-2021 CASE MANAGEM Normal [facility] CBC panel Auto (Bld)on 06-20 Erythrocyte distribution width (RBC) [Ratio] 15.9 % High 11.5-15.0 [facility] Comment on above: Order Comment: Speci men Type: BLOOD SPECIMENOrdering Facility: [facility] Address: [address] [place] [address] Performed By: #### 5 8410-2 ####[facility] LABORATORYCLIA [id number] [address] [place] Hematocrit (Bld) [Volume fraction] 31.0 % Low 39.0-51.0 [facility] Comment on above: Order Comment: Speci men Type: BLOOD SPECIMENOrdering Facility: [facility] Address: [address] [place] [address] Performed By: #### 5 8410-2 ####[facility] LABORATORYCLIA [id number] [place] [address] [place] Hemoglobin (Bld) [Mass/Vol] 9.2 g/dL Low 13.0-17.0 [facility] Comment on above: Order Comment: Speci men Type: BLOOD SPECIMENOrdering Facility: [facility] Address: [address] [place] [address] Performed By: #### 5 8410-2 ####[facility] LABORATORYCLIA [id number] [address] MCH (RBC) [Entitic mass] 27.4 pg Normal 26.0-34.0 [facility] Comment on above: Order Comment: Speci men Type: BLOOD SPECIMENOrdering Facility: [facility] Address: [address] [place] [address] Performed By: #### 5 8410-2 ####[facility] LABORATORYCLIA [id number] [address] MCHC (RBC) [Mass/Vol] 29.7 g/dL Low 30.5-36.0 [facility] Comment on above: Order Comment: Speci men Type: BLOOD SPECIMENOrdering Facility: [facility] Address: [address] [place] [address] Performed By: #### 5 8410-2 ####[facility] LABORATORYCLIA [id number] [address] MCV (RBC) [Entitic vol] 92.3 fL Normal 80.0-100.0 [facility] Comment on above: Order Comment: Speci men Type: BLOOD SPECIMENOrdering Facility: [facility] Address: [address] [place] [address] Performed By: #### 5 8410-2 ####[facility] LABORATORYCLIA [id number] [address] Nucleated RBC (Bld) [#/Vol] 10*3/uL Normal <0.01 [facility] Comment on above: Order Comment: Speci men Type: BLOOD SPECIMENOrdering Facility: [facility] Address: [address] [place] [address] Performed By: #### 5 8410-2 ####[facility] LABORATORYCLIA [id number] [address] Platelet mean volume (Bld) [Entitic vol] 11.5 fL Normal 9.0-12.7 [facility] Comment on above: Order Comment: Speci men Type: BLOOD SPECIMENOrdering Facility: [facility] Address: [address] [place] [address] Performed By: #### 5 8410-2 ####[facility] LABORATORYCLIA [id number] [address] [facility] Platelets (Bld) [#/Vol] 343 10*3/uL Normal 150-400 [facility] Comment on above: Order Comment: Speci men Type: BLOOD SPECIMENOrdering Facility: [facility] Address: [address] [place] [address] Performed By: #### 5 8410-2 ####[facility] LABORATORYCLIA [id number] [address] RBC (Bld) [#/Vol] 3.36 10*6/uL Low 4.20-6.00 [facility] Comment on above: Order Comment: Speci men Type: BLOOD SPECIMENOrdering Facility: [facility] Address: [address] [place] [address] Performed By: #### 5 8410-2 ####[facility] LABORATORYCLIA [id number] [address] WBC (Bld) [#/Vol] 10.71 10*3/uL Normal 3.70-11.00 [facility] Comment on above: Order Comment: Speci men Type: BLOOD SPECIMENOrdering Facility: [facility] Address: [address] [place] [address] Performed By: #### 5 8410-2 ####[facility] LABORATORYCLIA [id number] [address] CONSULT PROGon 06-20-2021 CONSULT PROG Normal [facility] HEMOGLOBIN (HGB)on 2 Hemoglobin (Bld) [Mass/Vol] 9.7 g/dL Low 13.0-17.0 [facility] Comment on above: Order Comment: Speci men Type: BLOOD SPECIMENOrdering Facility: [facility] Address: [address] [place] [address] Performed By: #### H GB ####[facility] LABORATORYCLIA [id number] [address] [place] Magnesium SerPl-mCncon 06-20 Magnesium [Mass/Vol] 2.5 mg/dL High 1.7-2.3 [facility] Comment on above: Order Comment: Speci men Type: BLOOD SPECIMENOrdering Facility: [facility] Address: [address] [place] [address] Performed By: #### 2 4321-2, 50471-6 ####[facility] LABORATORYCLIA [id number] [address] [facility] NURSING PROGon 06-20-2021 NURSING PROG Normal [facility] THERAPY NTon 06-20-2021 THERAPY NT Normal [facility] aPTT PPPon 06-20-2021 aPTT Coag (PPP) [Time] 93.5 s High 23.0-32.4 [facility] Comment on above: Order Comment: Speci men Type: BLOOD SPECIMENOrdering Facility: [facility] Address: [address] [place] [address] Performed By: #### 1 4979-9 ####[facility] LABORATORYCLIA [id number] [address] aPTT Coag (PPP) [Time] 47.1 s High 23.0-32.4 [facility] Comment on above: Order Comment: Speci men Type: BLOOD SPECIMENOrdering Facility: [facility] Address: [address] [place] [address] Performed By: #### 1 4979-9 ####[facility] LABORATORYCLIA [id number] [address] [place] Basic metabolic 2000 panelon 06-19-2021 Anion gap [Moles/Vol] 7 mmol/L Low 9-18 [facility] Comment on above: Order Comment: Speci men Type: BLOOD SPECIMENOrdering Facility: [facility] Address: [address] [place] [address] Performed By: #### 2 4321-2 ####[facility] LABORATORYCLIA [id number] [place] [address] [place] Calcium [Mass/Vol] 8.1 mg/dL Low 8.5-10.2 [facility] Comment on above: Order Comment: Speci men Type: BLOOD SPECIMENOrdering Facility: [facility] Address: [address] [place] [address] Performed By: #### 2 4321-2 ####[facility] LABORATORYCLIA [id number] [place] [address] [place] Chloride [Moles/Vol] 111 mmol/L High 97-105 [facility] Comment on above: Order Comment: Speci men Type: BLOOD SPECIMENOrdering Facility: [facility] Address: [address] [place] [address] Performed By: #### 2 4321-2 ####[facility] LABORATORYCLIA [id number] [place] [address] [place] CO2 [Moles/Vol] 24 mmol/L Normal 22-30 [facility] Comment on above: Order Comment: Speci men Type: BLOOD SPECIMENOrdering Facility: [facility] Address: [address] [place] [address] Performed By: #### 2 4321-2 ####[facility]ORATORYCLIA [id number] [place] [address] [place] Creatinine [Mass/Vol] 0.71 mg/dL Low 0.73-1.22 [facility] Comment on above: Order Comment: Speci men Type: BLOOD SPECIMENOrdering Facility: [facility] Address: [address] [place] [address] Performed By: #### 2 4321-2 ####[facility]ORATORYCLIA [id number] [place] [address] [place] GFR/1.73 sq M.predicted MDRD (S/P/Bld) [Vol rate/Area] mL/min/{1.73_m2} Normal [facility] Comment on above: Order Comment: Shira feldman Type: BLOOD SPECIMENOrdering Facility: [facility] Address: [address] [place] [address] Result Comment: >60e GFR (Estimated GFR) Units [...] actual GFR. Performed By: #### 2 4321-2 ####[facility]ITAL[facility]IA [id number] [place] [address] [place] Glucose [Mass/Vol] 110 mg/dL High 74-99 [facility] Comment on above: Order Comment: Johncara feldman Type: BLOOD SPECIMENOrdering Facility: [facility] Address: [address] [place], [place] [address] Result Comment: The [employer] [place] [employer] (ADA) provides guidance for cutoff [...] Standards of Medical Care in Diabetes 2016, [employer] [place] [employer]. Diabetes Care. 2016.39(Suppl 1). Performed By: #### 2 4321-2 ####[facility] LABORATORYCLIA [id number] [place] [id number] [place] Potassium [Moles/Vol] 3.7 mmol/L Normal 3.7-5.1 [facility] Comment on above: Order Comment: Speci men Type: BLOOD SPECIMENOrdering Facility: [facility] Address: [address] [place] [address] Performed By: #### 2 4321-2 ####[facility] LABORATORYCLIA [id number] [address] STATES [place] [facility] Sodium [Moles/Vol] 142 mmol/L Normal 136-144 [facility] Comment on above: Order Comment: Speci men Type: BLOOD SPECIMENOrdering Facility: [facility] Address: [address] [place] [address] Performed By: #### 2 4321-2 ####[facility] LABORATORYCLIA [id number] [address] STATES [place] [facility] Urea nitrogen [Mass/Vol] 26 mg/dL High 9-24 [facility] Comment on above: Order Comment: Speci men Type: BLOOD SPECIMENOrdering Facility: [facility] Address: [address] [place] [address] Performed By: #### 2 4321-2 ####[facility]ORATORYCLIA [id number] [address] CBC panel Auto (Bld)on 06-19 Erythrocyte distribution width (RBC) [Ratio] 15.7 % High 11.5-15.0 [facility] Comment on above: Order Comment: Speci men Type: BLOOD SPECIMENOrdering Facility: [facility] Address: [address] [place] [address] Performed By: #### 5 8410-2 ####[facility]ORATORYCLIA [id number] [address] Hematocrit (Bld) [Volume fraction] 30.9 % Low 39.0-51.0 [facility] Comment on above: Order Comment: Speci men Type: BLOOD SPECIMENOrdering Facility: [facility] Address: [address] [place] [address] Performed By: #### 5 8410-2 ####[facility]ORATORYCLIA [id number] [address] [facility] Hemoglobin (Bld) [Mass/Vol] 9.5 g/dL Low 13.0-17.0 [facility] Comment on above: Order Comment: Speci men Type: BLOOD SPECIMENOrdering Facility: [facility] Address: [address] [place] [address] Performed By: #### 5 8410-2 ####[facility]ORATORYCLIA [id number] [address] MCH (RBC) [Entitic mass] 28.4 pg Normal 26.0-34.0 [facility] Comment on above: Order Comment: Speci men Type: BLOOD SPECIMENOrdering Facility: [facility] Address: [address] [place] [address] Performed By: #### 5 8410-2 ####[facility]ORATORYCLIA [id number] [address] MCHC (RBC) [Mass/Vol] 30.7 g/dL Normal 30.5-36.0 [facility] Comment on above: Order Comment: Speci men Type: BLOOD SPECIMENOrdering Facility: [facility] Address: [address] [place] [address] Performed By: #### 5 8410-2 ####[facility]ORATORYCLIA [id number] [address] MCV (RBC) [Entitic vol] 92.2 fL Normal 80.0-100.0 [facility] Comment on above: Order Comment: Speci men Type: BLOOD SPECIMENOrdering Facility: [facility] Address: [address] [place] [address] Performed By: #### 5 8410-2 ####[facility]ORATORYCLIA [id number] [address] [facility] Nucleated RBC (Bld) [#/Vol] 10*3/uL Normal <0.01 [facility] Comment on above: Order Comment: Speci men Type: BLOOD SPECIMENOrdering Facility: [facility] Address: [address] [place] [address] Performed By: #### 5 8410-2 ####[facility]ORATORYCLIA [id number] [address] [place] Platelet mean volume (Bld) [Entitic vol] 11.7 fL Normal 9.0-12.7 [facility] Comment on above: Order Comment: Speci men Type: BLOOD SPECIMENOrdering Facility: [facility] Address: [address] [place] [address] Performed By: #### 5 8410-2 ####[facility]ORATORYCLIA [id number] [address] [place] Platelets (Bld) [#/Vol] 323 10*3/uL Normal 150-400 [facility] Comment on above: Order Comment: Speci men Type: BLOOD SPECIMENOrdering Facility: [facility] Address: [address] [place] [address] Performed By: #### 5 8410-2 ####[facility]ORATORYCLIA [id number] [place] [address] [place] RBC (Bld) [#/Vol] 3.35 10*6/uL Low 4.20-6.00 [facility] Comment on above: Order Comment: Speci men Type: BLOOD SPECIMENOrdering Facility: [facility] Address: [address] [place], [place] [address] Performed By: #### 5 8410-2 ####[facility]ORATORYCLIA [id number] [address] [place] WBC (Bld) [#/Vol] 9.53 10*3/uL Normal 3.70-11.00 [facility] Comment on above: Order Comment: Speci men Type: BLOOD SPECIMENOrdering Facility: [facility] Address: [address] [place] [address] Performed By: #### 5 8410-2 ####[facility]ORATORYCLIA [id number] [address] [place] HEMOGLOBIN (HGB)on Hemoglobin (Bld) [Mass/Vol] 9.7 g/dL Low 13.0-17.0 [facility] Comment on above: Order Comment: Speci men Type: BLOOD SPECIMENOrdering Facility: [facility] Address: [address] [place] [address] Performed By: #### H GB ####[facility]ORATORYCLIA [id number] [address] [place] Magnesium SerPl-mCncon 06-19 Magnesium [Mass/Vol] 2.5 mg/dL High 1.7-2.3 [facility] Comment on above: Order Comment: Speci men Type: BLOOD SPECIMENOrdering Facility: [facility] Address: [address] [place] [address] Performed By: #### 1 9123-9, 2777-1 ####[facility]ITALCLIA [id number] [address] [place] NURSING PROGon 06-19-2021 NURSING PROG Normal [facility] Phosphate SerPl-mCncon 06-19 Phosphate [Mass/Vol] 2.6 mg/dL Low 2.7-4.8 [facility] Comment on above: Order Comment: Speci men Type: BLOOD SPECIMENOrdering Facility: [facility] Address: [address] [place] [address] Performed By: #### 1 9123-9, 2777-1 ####[facility]CLIA [id number] [address] [place] aPTT PPPon 06-19-2021 aPTT Coag (PPP) [Time] 61.9 s High 23.0-32.4 [facility] Comment on above: Order Comment: Speci men Type: BLOOD SPECIMENOrdering Facility: [facility] Address: [address] [place] [address] Performed By: #### 1 4979-9 ####[facility]ORATORYCLIA [id number] [address] [place] aPTT Coag (PPP) [Time] 68.6 s High 23.0-32.4 [facility] Comment on above: Order Comment: Speci men Type: BLOOD SPECIMENOrdering Facility: [facility] Address: [address] [place] [address] Performed By: #### 1 4979-9 ####[facility]ORATORYCLIA [id number] [address] [place] aPTT Coag (PPP) [Time] 83.2 s High 23.0-32.4 [facility] Comment on above: Order Comment: Speci men Type: BLOOD SPECIMENOrdering Facility: [facility] Address: [address] [place] [address] Performed By: #### 1 4979-9 ####[facility]ORATORYCLIA [id number] [place] [address] [place] Basic metabolic 2000 panelon 06-18-2021 Anion gap [Moles/Vol] 7 mmol/L Low 9-18 [facility] Comment on above: Order Comment: Speci men Type: BLOOD SPECIMENOrdering Facility: [facility] Address: [address] [place] [address] Performed By: #### 2 4321-2, , 2776-05 ####[facility]ATORYCLIA [id number] [place] [address] [place] Calcium [Mass/Vol] 8.2 mg/dL Low 8.5-10.2 [facility] Comment on above: Order Comment: Speci men Type: BLOOD SPECIMENOrdering Facility: [facility] Address: [address] [place] [address] Performed By: #### 2 4321-2, , 2776-05 ####[facility]ORATORYCLIA [id number] [address] [place] Chloride [Moles/Vol] 115 mmol/L High 97-105 [facility] Comment on above: Order Comment: Speci men Type: BLOOD SPECIMENOrdering Facility: [facility] Address: [address] [place], [place] [address] Performed By: #### 2 4321-2, , 2776-05 ####[facility]ORATORYCLIA [id number] [place] [address] [place] [facility] CO2 [Moles/Vol] 23 mmol/L Normal 22-30 [facility] Comment on above: Order Comment: Speci men Type: BLOOD SPECIMENOrdering Facility: [facility] Address: [address] [place], [place] [address] Performed By: #### 2 4321-2, , 2776-05 ####[facility]IA [id number] [address] [place] Creatinine [Mass/Vol] 0.70 mg/dL Low 0.73-1.22 [facility] Comment on above: Order Comment: Speci men Type: BLOOD SPECIMENOrdering Facility: [facility] Address: [address] [place], [place] [address] Performed By: #### 2 4321-2, , 2776-05 ####[facility]ORATORYCLIA [id number] [address] [place] GFR/1.73 sq M.predicted MDRD (S/P/Bld) [Vol rate/Area] mL/min/{1.73_m2} Normal [facility] Comment on above: Order Comment: Speci men Type: BLOOD SPECIMENOrdering Facility: [facility] Address: [address] [place], [place] [address] Result Comment: >60e GFR (Estimated GFR) Units [...] 4321-2, , 2776-05 ####[facility]ORATORYCLIA [id number] [place] [address] [place] Glucose [Mass/Vol] 105 mg/dL High 74-99 [facility] Comment on above: Order Comment: Shira feldman Type: BLOOD SPECIMENOrdering Facility: [facility] Address: [address] [place] [address] Result Comment: The [place] [employer] (ADA) provides guidance for cutoff [...] Standards of Medical Care in Diabetes 2016, [employer] [place] [employer]. Diabetes Care. 2016.39(Suppl 1). Performed By: #### 2 4321-2, , 2776-05 ####[facility]ORATORYCLIA [id number] [place] [address] [place] Potassium [Moles/Vol] 4.1 mmol/L Normal 3.7-5.1 [facility] Comment on above: Order Comment: Shira feldman Type: BLOOD SPECIMENOrdering Facility: [facility] Address: [address] [place] [address] Performed By: #### 2 4321-2, , 2776-05 ####[facility]ORATORYCLIA [id number] [place] [address] [place] Sodium [Moles/Vol] 145 mmol/L High 136-144 [facility] Comment on above: Order Comment: Speci men Type: BLOOD SPECIMENOrdering Facility: [facility] Address: [address] [place] [address] Performed By: #### 2 4321-2, , 2776-05 ####[facility]ATORYCLIA [id number] [address] [place] [facility] Urea nitrogen [Mass/Vol] 27 mg/dL High 9-24 [facility] Comment on above: Order Comment: Speci men Type: BLOOD SPECIMENOrdering Facility: [facility] Address: [address] [place] [address] Performed By: #### 2 4321-2, , 2776-05 ####[facility]ORATORYCLIA [id number] [address] [place] [facility] CALCIUM IONIZED Bon 06-18-19 Calcium.ionized (BldV) [Mass/Vol] 1.22 mmol/L Normal 1.08-1.30 [facility] Comment on above: Order Comment: Speci men Type: BLOOD SPECIMENOrdering Facility: [facility] Address: [address] [place] [address] Performed By: #### I CA ####[facility]ORATORYCLIA [id number] [address] Calcium.ionized adjusted to pH 7.4 (Bld) [Moles/Vol] 1.23 mmol/L Normal 1.08-1.30 [facility] Comment on above: Order Comment: Speci men Type: BLOOD SPECIMENOrdering Facility: [facility] Address: [address] [place] [address] Performed By: #### I CA ####[facility]ORATORYCLIA [id number] [address] [place] CBC panel Auto (Bld)on 06-18 Erythrocyte distribution width (RBC) [Ratio] 15.8 % High 11.5-15.0 [facility] Comment on above: Order Comment: Speci men Type: BLOOD SPECIMENOrdering Facility: [facility] Address: [address] [place] [address] Performed By: #### 5 8410-2 ####[facility]ORATORYCLIA [id number] [address] Hematocrit (Bld) [Volume fraction] 29.5 % Low 39.0-51.0 [facility] Comment on above: Order Comment: Speci men Type: BLOOD SPECIMENOrdering Facility: [facility] Address: [address] [place] [address] Performed By: #### 5 8410-2 ####[facility]ORATORYCLIA [id number] [address] [facility] Hemoglobin (Bld) [Mass/Vol] 8.8 g/dL Low 13.0-17.0 [facility] Comment on above: Order Comment: Speci men Type: BLOOD SPECIMENOrdering Facility: [facility] Address: [address] [place] [address] Performed By: #### 5 8410-2 ####[facility]ORATORYCLIA [id number] [address] [facility] MCH (RBC) [Entitic mass] 27.4 pg Normal 26.0-34.0 [facility] Comment on above: Order Comment: Speci men Type: BLOOD SPECIMENOrdering Facility: [facility] Address: [address] [place] [address] Performed By: #### 5 8410-2 ####[facility]ORATORYCLIA [id number] [address] [place] MCHC (RBC) [Mass/Vol] 29.8 g/dL Low 30.5-36.0 [facility] Comment on above: Order Comment: Speci men Type: BLOOD SPECIMENOrdering Facility: [facility] Address: [address] [place] [address] Performed By: #### 5 8410-2 ####[facility]ORATORYCLIA [id number] [address] MCV (RBC) [Entitic vol] 91.9 fL Normal 80.0-100.0 [facility] Comment on above: Order Comment: Speci men Type: BLOOD SPECIMENOrdering Facility: [facility] Address: [address] [place] [address] Performed By: #### 5 8410-2 ####[facility]ORATORYCLIA [id number] [place] [address] [place] Nucleated RBC (Bld) [#/Vol] 10*3/uL Normal <0.01 [facility] Comment on above: Order Comment: Speci men Type: BLOOD SPECIMENOrdering Facility: [facility] Address: [address] [place] [address] Performed By: #### 5 8410-2 ####[facility]ORATORYCLIA [id number] [place] [address] [place] Platelet mean volume (Bld) [Entitic vol] 11.9 fL Normal 9.0-12.7 [facility] Comment on above: Order Comment: Speci men Type: BLOOD SPECIMENOrdering Facility: [facility] Address: [address] [place] [address] Performed By: #### 5 8410-2 ####[facility]ATORYCLIA [id number] [place] [address] [place] Platelets (Bld) [#/Vol] 291 10*3/uL Normal 150-400 [facility] Comment on above: Order Comment: Speci men Type: BLOOD SPECIMENOrdering Facility: [facility] Address: [address] Performed By: #### 5 8410-2 ####[facility]ORATORYCLIA [id number] [place] [address] [place] RBC (Bld) [#/Vol] 3.21 10*6/uL Low 4.20-6.00 [facility] Comment on above: Order Comment: Speci men Type: BLOOD SPECIMENOrdering Facility: [facility] Address: [address] [place] [address] Performed By: #### 5 8410-2 ####[facility]ORATORYCLIA [id number] [address] [facility] WBC (Bld) [#/Vol] 10.19 10*3/uL Normal 3.70-11.00 [facility] Comment on above: Order Comment: Speci men Type: BLOOD SPECIMENOrdering Facility: [facility] Address: [address] [place] [address] Performed By: #### 5 8410-2 ####[facility]ORATORYCLIA [id number] [address] [place] FERRITIN BLDon 06-18-2021 Ferritin [Mass/Vol] 600.9 ng/mL High 30.3-565.7 [facility] Comment on above: Order Comment: Speci men Type: BLOOD SPECIMENOrdering Facility: [facility] Address: [address] [place] [address] Performed By: #### S ERFOL, IRON, FERR ####[facility]CLIA [id number] [address] FOLATE SERUMon 06-18-2021 Folate [Mass/Vol] 14.3 ng/mL Normal >4.7 [facility] Comment on above: Order Comment: Speci men Type: BLOOD SPECIMENOrdering Facility: [facility] Address: [address] [place] [address] Performed By: #### S ERFOL, IRON, FERR ####[facility]ORATORYCLIA [id number] [address] Gas and Carbon monoxide pane l (BldV)on 06-18-2021 Base excess Calc (BldV) [Moles/Vol] 0.5 mmol/L Normal 0-2 [facility] Comment on above: Order Comment: Speci men Type: VENOUS BLOOD SPECIMENOrdering Facility: [facility] Address: [address] [place] [address] Performed By: #### 2 4344-4 ####[facility]ORATORYCLIA [id number] [address] Body temperature 97.34 [degF] Normal [facility] Comment on above: Order Comment: Speci men Type: VENOUS BLOOD SPECIMENOrdering Facility: [facility] Address: [address] [place] [address] Performed By: #### 2 4344-4 ####[facility]ORATORYCLIA [id number] [address] [place] [facility] CALCIUM IONIZED, PH CORRECTED 1.26 mmol/L Normal 1.08-1.30 [facility] Comment on above: Order Comment: Speci men Type: VENOUS BLOOD SPECIMENOrdering Facility: [facility] Address: [address] [place] [address] Performed By: #### 2 4344-4 ####[facility]ORATORYCLIA [id number] [address] Calcium.ionized (BldV) [Mass/Vol] 1.25 mmol/L Normal 1.08-1.30 [facility] Comment on above: Order Comment: Speci men Type: VENOUS BLOOD SPECIMENOrdering Facility: [facility] Address: [address] [place] [address] Performed By: #### 2 4344-4 ####[facility]ORATORYCLIA [id number] [address] [place] Carboxyhemoglobin (BldV) [Mass fraction] 1.5 % Normal 0.0-2.0 [facility] Comment on above: Order Comment: Speci men Type: VENOUS BLOOD SPECIMENOrdering Facility: [facility] Address: [address] [place] [address] Result Comment: Carb oxyhemoglobin Reference Range for Smokers: 2.0-8.0% Performed By: #### 2 4344-4 ####[facility]ORATORYCLIA [id number] [address] [place] CO2 (BldV) [Partial pressure] 38 mm[Hg] Low 42-55 [facility] Comment on above: Order Comment: Speci men Type: VENOUS BLOOD SPECIMENOrdering Facility: [facility] Address: [address] [place] [place] [address] Performed By: #### 2 4344-4 ####[facility]ORATORYCLIA [id number] [address] [place] [facility] CO2 [Moles/Vol] 22.9 mmol/L Low 25-29 [facility] Comment on above: Order Comment: Speci men Type: VENOUS BLOOD SPECIMENOrdering Facility: [facility] Address: [address] [place] [address] Performed By: #### 2 4344-4 ####[facility]ORATORYCLIA [id number] [address] CO2 adjusted to patient's actual temperature (BldV) [Partial pressure] 37 mmHg Low 42-55 [facility] Comment on above: Order Comment: Speci men Type: VENOUS BLOOD SPECIMENOrdering Facility: [facility] Address: [address] [place] [address] Performed By: #### 2 4344-4 ####[facility]ATORYCLIA [id number] [address] Glucose [Mass/Vol] 103 mg/dL Normal 60-105 [facility] Comment on above: Order Comment: Speci men Type: VENOUS BLOOD SPECIMENOrdering Facility: [facility] Address: [address] [place] [address] Performed By: #### 2 4344-4 ####[facility]ORATORYCLIA [id number] [address] [place] HCO3 (Bld) [Moles/Vol] 24.4 mmol/L Normal 24-28 [facility] Comment on above: Order Comment: Speci men Type: VENOUS BLOOD SPECIMENOrdering Facility: [facility] Address: [address] [place] [address] Performed By: #### 2 4344-4 ####[facility]ORATORYCLIA [id number] [address] [facility] Hematocrit (Bld) [Volume fraction] 28.7 % Low 39.0-51.0 [facility] Comment on above: Order Comment: Speci men Type: VENOUS BLOOD SPECIMENOrdering Facility: [facility] Address: [address] [place] [address] Performed By: #### 2 4344-4 ####[facility]ATORYCLIA [id number] [address] [place] Hemoglobin (Bld) [Mass/Vol] 9.3 g/dL Low 13.0-17.0 [facility] Comment on above: Order Comment: Speci men Type: VENOUS BLOOD SPECIMENOrdering Facility: [facility] Address: [address] [place] [address] Performed By: #### 2 4344-4 ####[facility]ORATORYCLIA [id number] [address] [place] Methemoglobin (Bld) [Mass fraction] % Normal 0.0-1.5 [facility] Comment on above: Order Comment: Speci men Type: VENOUS BLOOD SPECIMENOrdering Facility: [facility] Address: [address] [place] [address] Performed By: #### 2 4344-4 ####[facility] LABORATORYCLIA [id number] [address] [place] O2 THERAPY Ventilator Normal [facility] Comment on above: Order Comment: Speci men Type: VENOUS BLOOD SPECIMENOrdering Facility: [facility] Address: [address] [place] [address] Performed By: #### 2 4344-4 ####[facility] LABORATORYCLIA [id number] [address] Oxygen (BldV) [Partial pressure] 37 mm[Hg] Normal 35-45 [facility] Comment on above: Order Comment: Speci men Type: VENOUS BLOOD SPECIMENOrdering Facility: [facility] Address: [address] [place] [address] Performed By: #### 2 4344-4 ####[facility]ORATORYCLIA [id number] [place], [place] [id number] [place] [address] [place] Oxygen adjusted to patient's actual temperature (BldV) [Partial pressure] 35.1 mmHg Normal 35-45 [facility] Comment on above: Order Comment: Speci men Type: VENOUS BLOOD SPECIMENOrdering Facility: [facility] Address: [address] [place] [address] Performed By: #### 2 4344-4 ####[facility]ORATORYCLIA [id number] [address] [place] Oxygen saturation in Blood 67.1 % Normal 60-85 [facility] Comment on above: Order Comment: Speci men Type: VENOUS BLOOD SPECIMENOrdering Facility: [facility] Address: [address] [place] [address] Performed By: #### 2 4344-4 ####[facility] LABORATORYCLIA [id number] [address] Oxyhemoglobin (BldV) [Mass fraction] 66 % Normal 60-85 [facility] Comment on above: Order Comment: Speci men Type: VENOUS BLOOD SPECIMENOrdering Facility: [facility] Address: [address] [place] [address] Performed By: #### 2 4344-4 ####[facility]ORATORYCLIA [id number] [address] [place] pH (BldV) 7.42 [pH] Normal 7.32-7.42 [facility] Comment on above: Order Comment: Speci men Type: VENOUS BLOOD SPECIMENOrdering Facility: [facility] Address: [address] [place] [address] Performed By: #### 2 4344-4 ####[facility]ORATORYCLIA [id number] [address] pH adjusted to patient's actual temperature (BldV) 7.43 High 7.32-7.42 [facility] Comment on above: Order Comment: Speci men Type: VENOUS BLOOD SPECIMENOrdering Facility: [facility] Address: [address] [place] [address] Performed By: #### 2 4344-4 ####[facility]ORATORYCLIA [id number] [place] [address] [place] Potassium [Moles/Vol] 4.0 mmol/L Normal 3.5-5.0 [facility] Comment on above: Order Comment: Speci men Type: VENOUS BLOOD SPECIMENOrdering Facility: [facility] Address: [address] [place] [address] Performed By: #### 2 4344-4 ####[facility]ORATORYCLIA [id number] [address] [place] Sodium [Moles/Vol] 146 mmol/L High 136-144 [facility] Comment on above: Order Comment: Speci men Type: VENOUS BLOOD SPECIMENOrdering Facility: [facility] Address: [address] [place] [address] Performed By: #### 2 4344-4 ####[facility]ORATORYCLIA [id number] [place] [address] [place] HEMOGLOBIN (HGB)on Hemoglobin (Bld) [Mass/Vol] 9.2 g/dL Low 13.0-17.0 [facility] Comment on above: Order Comment: Speci men Type: BLOOD SPECIMENOrdering Facility: [facility] Address: [address] [place] [address] Performed By: #### H GB ####[facility] LABORATORYCLIA [id number] [address] [place] IRON + TIBCon 06-18-2021 Iron [Mass/Vol] 27 ug/dL Low 41-186 [facility] Comment on above: Order Comment: Speci men Type: BLOOD SPECIMENOrdering Facility: [facility] Address: [address] [place] [address] Performed By: #### S ERFOL, IRON, FERR ####[facility]ORATORYCLIA [id number] [address] Iron binding capacity [Mass/Vol] 141 ug/dL Low 232-386 [facility] Comment on above: Order Comment: Speci men Type: BLOOD SPECIMENOrdering Facility: [facility] Address: [address] [place] [address] Performed By: #### S ERFOL, IRON, FERR ####[facility]ORATORYCLIA [id number] [address] Iron saturation [Mass fraction] 19 % Normal 15-57 [facility] Comment on above: Order Comment: Speci men Type: BLOOD SPECIMENOrdering Facility: [facility] Address: [address] [place] [address] Performed By: #### S ERFOL, IRON, FERR ####[facility]ORATORYCLIA [id number] [address] Magnesium SerPl-mCncon 06-18 Magnesium [Mass/Vol] 2.5 mg/dL High 1.7-2.3 [facility] Comment on above: Order Comment: Speci men Type: BLOOD SPECIMENOrdering Facility: [facility] Address: [address] [place] [address] Performed By: #### 2 4321-2, , 2776- ####[facility]ATORYCLIA [id number] [address] NURSING PROGon 06-18-2021 NURSING PROG Normal [facility] Phosphate SerPl-mCncon 06-18 Phosphate [Mass/Vol] 3.0 mg/dL Normal 2.7-4.8 [facility] Comment on above: Order Comment: Speci men Type: BLOOD SPECIMENOrdering Facility: [facility] Address: [address] [place] [address] Performed By: #### 2 4321-2, 19231-6, 2777-1 ####[facility]ORATORYCLIA [id number] [address] THERAPY NTon 06-18-2021 THERAPY NT Normal [facility] aPTT PPPon 06-18-2021 aPTT Coag (PPP) [Time] 43.0 s High 23.0-32.4 [facility] Comment on above: Order Comment: Speci men Type: BLOOD SPECIMENOrdering Facility: [facility] Address: [address] [place] [address] Performed By: #### 1 4979-9 ####[facility]ORATORYCLIA [id number] [address] aPTT Coag (PPP) [Time] 60.6 s High 23.0-32.4 [facility] Comment on above: Order Comment: Speci men Type: BLOOD SPECIMENOrdering Facility: [facility] Address: [address] [place] [address] Performed By: #### 1 4979-9 ####[facility]ITALCLIA [id number] [address] aPTT Coag (PPP) [Time] 46.4 s High 23.0-32.4 [facility] Comment on above: Order Comment: Speci men Type: BLOOD SPECIMENOrdering Facility: [facility] Address: [address] [place] [address] Performed By: #### 1 4979-9 ####[facility]ORATORYCLIA [id number] [address] [place] Basic metabolic 2000 panelon 06-17-2021 Anion gap [Moles/Vol] 7 mmol/L Low 9-18 [facility] Comment on above: Order Comment: Speci men Type: BLOOD SPECIMENOrdering Facility: [facility] Address: [address] [place] [address] Performed By: #### 2 951-2, 17199-3, 2777-1, 75205-8 ####[facility]ORATORYCLIA [id number] [address] [facility] Calcium [Mass/Vol] 8.1 mg/dL Low 8.5-10.2 [facility] Comment on above: Order Comment: Speci men Type: BLOOD SPECIMENOrdering Facility: [facility] Address: [address] [place] [address] Performed By: #### 2 951-2, , 2776-05, 07269-5 ####[facility]ORATORYCLIA [id number] [place] [address] [place] Chloride [Moles/Vol] 113 mmol/L High 97-105 [facility] Comment on above: Order Comment: Speci men Type: BLOOD SPECIMENOrdering Facility: [facility] Address: [address] [place] [address] Performed By: #### 2 951-2, , 2776-05, 11031-1 ####[facility]ORATORYCLIA [id number] [place] [address] [place] CO2 [Moles/Vol] 25 mmol/L Normal 22-30 [facility] Comment on above: Order Comment: Speci men Type: BLOOD SPECIMENOrdering Facility: [facility] Address: [address] [place] [address] Performed By: #### 2 951-2, , 2776-05, ####[facility]ORATORYCLIA [id number] [place] [address] [place] Creatinine [Mass/Vol] 0.70 mg/dL Low 0.73-1.22 [facility] Comment on above: Order Comment: Speci men Type: BLOOD SPECIMENOrdering Facility: [facility] Address: [address] [place] [address] Performed By: #### 2 951-2, , 2776-05, 78817-0 ####[facility]ORATORYCLIA [id number] [place] [address] [place] GFR/1.73 sq M.predicted MDRD (S/P/Bld) [Vol rate/Area] mL/min/{1.73_m2} Normal [facility] Comment on above: Order Comment: Shira feldman Type: BLOOD SPECIMENOrdering Facility: [facility] Address: [address] [place] [address] Result Comment: >60e GFR (Estimated GFR) Units [...] actual GFR. Performed By: #### 2 951-2, 44040-4, 2777-1, 03583-2 ####[facility]ITALCLIA [id number] [place] [id number] [place] Glucose [Mass/Vol] 122 mg/dL High 74-99 [facility] Comment on above: Order Comment: Shira feldman Type: BLOOD SPECIMENOrdering Facility: [facility] Address: [address] [place] [address] Result Comment: The [employer] [place] [employer] (ADA) provides guidance for cutoff [...] Standards of Medical Care in Diabetes 2016, [employer] [place] [employer]. Diabetes Care. 2016.39(Suppl 1). Performed By: #### 2 951-2, 00600-3, 2777-1, 17702-6 ####[facility]ORATORYCLIA [id number] [place] [address] [place] Potassium [Moles/Vol] 3.5 mmol/L Low 3.7-5.1 [facility] Comment on above: Order Comment: Speci men Type: BLOOD SPECIMENOrdering Facility: [facility] Address: [address] [place] [address] Performed By: #### 2 951-2, 12689-9, 2777-1, 25465-5 ####[facility]ORATORYCLIA [id number] [address] STATES [facility] Urea nitrogen [Mass/Vol] 27 mg/dL High 9-24 [facility] Comment on above: Order Comment: Speci men Type: BLOOD SPECIMENOrdering Facility: [facility] Address: [address] [place] [address] Performed By: #### 2 951-2, 15604-2, 2777-1, 22286-1 ####[facility]ORATORYCLIA [id number] [address] CASE MANAGEMon 06-17-2021 CASE MANAGEM Normal [facility] CBC panel Auto (Bld)on 06-17 Erythrocyte distribution width (RBC) [Ratio] 15.9 % High 11.5-15.0 [facility] Comment on above: Order Comment: Speci men Type: BLOOD SPECIMENOrdering Facility: [facility] Address: [address] [place] [address] Performed By: #### 5 8410-2 ####[facility]ORATORYCLIA [id number] [address] Hematocrit (Bld) [Volume fraction] 28.9 % Low 39.0-51.0 [facility] Comment on above: Order Comment: Speci men Type: BLOOD SPECIMENOrdering Facility: [facility] Address: [address] [place] [address] Performed By: #### 5 8410-2 ####[facility]ORATORYCLIA [id number] [address] [place] [facility] Hemoglobin (Bld) [Mass/Vol] 8.8 g/dL Low 13.0-17.0 [facility] Comment on above: Order Comment: Speci men Type: BLOOD SPECIMENOrdering Facility: [facility] Address: [address] [place] [address] Performed By: #### 5 8410-2 ####[facility]ORATORYCLIA [id number] [address] STATES [facility] MCH (RBC) [Entitic mass] 28.4 pg Normal 26.0-34.0 [facility] Comment on above: Order Comment: Speci men Type: BLOOD SPECIMENOrdering Facility: [facility] Address: [address] [place] [address] Performed By: #### 5 8410-2 ####[facility]ORATORYCLIA [id number] [address] STATES [facility] MCHC (RBC) [Mass/Vol] 30.4 g/dL Low 30.5-36.0 [facility] Comment on above: Order Comment: Speci men Type: BLOOD SPECIMENOrdering Facility: [facility] Address: [address] [place] [address] Performed By: #### 5 8410-2 ####[facility]ORATORYCLIA [id number] [address] MCV (RBC) [Entitic vol] 93.2 fL Normal 80.0-100.0 [facility] Comment on above: Order Comment: Speci men Type: BLOOD SPECIMENOrdering Facility: [facility] Address: [address] [place] [address] Performed By: #### 5 8410-2 ####[facility]ORATORYCLIA [id number] [address] Nucleated RBC (Bld) [#/Vol] 10*3/uL Normal <0.01 [facility] Comment on above: Order Comment: Speci men Type: BLOOD SPECIMENOrdering Facility: [facility] Address: [address] [place] [address] Performed By: #### 5 8410-2 ####[facility]ORATORYCLIA [id number] [address] Platelet mean volume (Bld) [Entitic vol] 11.9 fL Normal 9.0-12.7 [facility] Comment on above: Order Comment: Speci men Type: BLOOD SPECIMENOrdering Facility: [facility] Address: [address] [place] [address] Performed By: #### 5 8410-2 ####[facility]ORATORYCLIA [id number] [address] OF [facility] Platelets (Bld) [#/Vol] 257 10*3/uL Normal 150-400 [facility] Comment on above: Order Comment: Speci men Type: BLOOD SPECIMENOrdering Facility: [facility] Address: [address] [place] [address] Performed By: #### 5 8410-2 ####[facility]ORATORYCLIA [id number] [address] RBC (Bld) [#/Vol] 3.10 10*6/uL Low 4.20-6.00 [facility] Comment on above: Order Comment: Speci men Type: BLOOD SPECIMENOrdering Facility: [facility] Address: [address] [place] [address] Performed By: #### 5 8410-2 ####[facility]ORATORYCLIA [id number] [address] WBC (Bld) [#/Vol] 10.54 10*3/uL Normal 3.70-11.00 [facility] Comment on above: Order Comment: Speci men Type: BLOOD SPECIMENOrdering Facility: [facility] Address: [address] [place] [address] Performed By: #### 5 8410-2 ####[facility]ORATORYCLIA [id number] [address] HEMOGLOBIN (HGB)on 2 Hemoglobin (Bld) [Mass/Vol] 8.8 g/dL Low 13.0-17.0 [facility] Comment on above: Order Comment: Speci men Type: BLOOD SPECIMENOrdering Facility: [facility] Address: [address] [place] [address] Performed By: #### H GB ####[facility]ORATORYCLIA [id number] [address] [place] Magnesium SerPl-mCncon 06-17 Magnesium [Mass/Vol] 2.5 mg/dL High 1.7-2.3 [facility] Comment on above: Order Comment: Speci men Type: BLOOD SPECIMENOrdering Facility: [facility] Address: [address] [place] [address] Performed By: #### 2 951-2, , 2776-05, 56070-1 ####[facility]ORATORYCLIA [id number] [place] [address] [place] NURSING PROGon 06-17-2021 NURSING PROG Normal [facility] NURSING PROG Normal [facility] NURSING PROG Normal [facility] Phosphate SerPl-mCncon 06-17 Phosphate [Mass/Vol] 1.9 mg/dL Low 2.7-4.8 [facility] Comment on above: Order Comment: Speci men Type: BLOOD SPECIMENOrdering Facility: [facility] Address: [address] [place] [address] Performed By: #### 2 951-2, , 2776-05, 46248-5 ####[facility]ORATORYCLIA [id number] [place] [address] [place] Sodium SerPl-sCncon 06-17-19 22 Sodium [Moles/Vol] 144 mmol/L Normal 136-144 [facility] Comment on above: Order Comment: Speci men Type: BLOOD SPECIMENOrdering Facility: [facility] Address: [address] [place] [address] Performed By: #### 2 951-2 ####[facility]ORATORYCLIA [id number] [address] [place] [facility] Sodium [Moles/Vol] 145 mmol/L High 136-144 [facility] Comment on above: Order Comment: Speci men Type: BLOOD SPECIMENOrdering Facility: [facility] Address: [address] [place] [address] Performed By: #### 2 951-2, 59084-5, 2777-1, 37648-0 ####[facility]ORATORYCLIA [id number] [address] [place] aPTT PPPon 06-17-2021 aPTT Coag (PPP) [Time] 55.8 s High 23.0-32.4 [facility] Comment on above: Order Comment: Speci men Type: BLOOD SPECIMENOrdering Facility: [facility] Address: [address] [place] [address] Performed By: #### 1 4979-9 ####[facility]ORATORYCLIA [id number] [address] [place] ARTERIAL BLOOD GASESon 06-16 Base excess Calc (Bld) [Moles/Vol] 3 mmol/L High 0-2 [facility] Comment on above: Order Comment: Speci men Type: ARTERIAL BLOOD SPECIMENOrdering Facility: [facility] Address: [address] [place] [address] Performed By: #### A LLBG ####[facility]ORATORYCLIA [id number] [address] [place] Body temperature 99.14 [degF] Normal [facility] Comment on above: Order Comment: Speci men Type: ARTERIAL BLOOD SPECIMENOrdering Facility: [facility] Address: [address] [place] [address] Performed By: #### A LLBG ####[facility]ORATORYCLIA [id number] [address] [place] CALCIUM IONIZED, PH CORRECTED 1.21 mmol/L Normal 1.08-1.30 [facility] Comment on above: Order Comment: Speci men Type: ARTERIAL BLOOD SPECIMENOrdering Facility: [facility] Address: [address] [place] [address] Performed By: #### A LLBG ####[facility]ORATORYCLIA [id number] [address] [place] Calcium.ionized (BldV) [Mass/Vol] 1.17 mmol/L Normal 1.08-1.30 [facility] Comment on above: Order Comment: Speci men Type: ARTERIAL BLOOD SPECIMENOrdering Facility: [facility] Address: [address] [place] [address] Performed By: #### A LLBG ####[facility]ORATORYCLIA [id number] [address] Carboxyhemoglobin (BldA) [Mass fraction] 1.4 % Normal 0.0-2.0 [facility] Comment on above: Order Comment: Speci men Type: ARTERIAL BLOOD SPECIMENOrdering Facility: [facility] Address: [address] [place] [address] Result Comment: Carb oxyhemoglobin Reference Range for Smokers: 2.0-8.0% Performed By: #### A LLBG ####[facility]ORATORYCLIA [id number] [address] [place] CO2 (Bld) [Partial pressure] 38 mm Hg Normal 36-46 [facility] Comment on above: Order Comment: Speci men Type: ARTERIAL BLOOD SPECIMENOrdering Facility: [facility] Address: [address] [place] [address] Performed By: #### A LLBG ####[facility]ORATORYCLIA [id number] [address] [place] CO2 [Moles/Vol] 24.5 mmol/L Normal 22-28 [facility] Comment on above: Order Comment: Speci men Type: ARTERIAL BLOOD SPECIMENOrdering Facility: [facility] Address: [address] [place] [address] Performed By: #### A LLBG ####[facility] LABORATORYCLIA [id number] [address] [facility] CO2 adjusted to patient's actual temperature (Bld) [Partial pressure] 38 mmHg Normal 36-46 [facility] Comment on above: Order Comment: Speci men Type: ARTERIAL BLOOD SPECIMENOrdering Facility: [facility] Address: [address] [place] [address] Performed By: #### A LLBG ####[facility]ORATORYCLIA [id number] [address] [place] Glucose [Mass/Vol] 147 mg/dL High 60-105 [facility] Comment on above: Order Comment: Speci men Type: ARTERIAL BLOOD SPECIMENOrdering Facility: [facility] Address: [address] [place] [address] Performed By: #### A LLBG ####[facility]ORATORYCLIA [id number] [address] [place] HCO3 (Bld) [Moles/Vol] 27 mmol/L High 22-26 [facility] Comment on above: Order Comment: Speci men Type: ARTERIAL BLOOD SPECIMENOrdering Facility: [facility] Address: [address] [place] [address] Performed By: #### A LLBG ####[facility]ORATORYCLIA [id number] [address] [place] Hematocrit (Bld) [Volume fraction] 31.8 % Low 39.0-51.0 [facility] Comment on above: Order Comment: Speci men Type: ARTERIAL BLOOD SPECIMENOrdering Facility: [facility] Address: [address] [place] [address] Performed By: #### A LLBG ####[facility]ORATORYCLIA [id number] [address] [place] Hemoglobin (Bld) [Mass/Vol] 10.3 g/dL Low 13.0-17.0 [facility] Comment on above: Order Comment: Speci men Type: ARTERIAL BLOOD SPECIMENOrdering Facility: [facility] Address: [address] [place] [address] Performed By: #### A LLBG ####[facility]ATORYCLIA [id number] [address] Methemoglobin (Bld) [Mass fraction] 1.0 % Normal 0.0-1.5 [facility] Comment on above: Order Comment: Speci men Type: ARTERIAL BLOOD SPECIMENOrdering Facility: [facility] Address: [address] [place] [address] Performed By: #### A LLBG ####[facility]ORYCLIA [id number] [address] O2 THERAPY Ventilator Normal [facility] Comment on above: Order Comment: Speci men Type: ARTERIAL BLOOD SPECIMENOrdering Facility: [facility] Address: [address] [place] [address] Performed By: #### A LLBG ####[facility]ATORYCLIA [id number] [address] Oxygen (Bld) [Partial pressure] 78 mm Hg Low 85-95 [facility] Comment on above: Order Comment: Speci men Type: ARTERIAL BLOOD SPECIMENOrdering Facility: [facility] Address: [address] [place] [address] Performed By: #### A LLBG ####[facility]ATORYCLIA [id number] [address] Oxygen adjusted to patient's actual temperature (Bld) [Partial pressure] 79.7 mmHg Low 85-95 [facility] Comment on above: Order Comment: Speci men Type: ARTERIAL BLOOD SPECIMENOrdering Facility: [facility] Address: [address] [place] [address] Performed By: #### A LLBG ####[facility]ORYCLIA [id number] [address] [place] OXYGEN SATURATION, ARTERIAL 96 % Normal 95-98 [facility] Comment on above: Order Comment: Speci men Type: ARTERIAL BLOOD SPECIMENOrdering Facility: [facility] Address: [address] [place] [address] Performed By: #### A LLBG ####[facility]ORATORYCLIA [id number] [address] [place] Oxyhemoglobin (BldA) [Mass fraction] 94 % Low 95-98 [facility] Comment on above: Order Comment: Speci men Type: ARTERIAL BLOOD SPECIMENOrdering Facility: [facility] Address: [address] [place] [address] Performed By: #### A LLBG ####[facility]ORATORYCLIA [id number] [place] [address] [place] pH (Bld) 7.47 [pH] High 7.35-7.45 [facility] Comment on above: Order Comment: Speci men Type: ARTERIAL BLOOD SPECIMENOrdering Facility: [facility] Address: [address] [place] [address] Performed By: #### A LLBG ####[facility]ORATORYCLIA [id number] [address] pH adjusted to patient's actual temperature (Bld) 7.46 High 7.35-7.45 [facility] [facility] Comment on above: Order Comment: Speci men Type: ARTERIAL BLOOD SPECIMENOrdering Facility: [facility] Address: [address] [place] [address] Performed By: #### A LLBG ####[facility] LABORATORYCLIA [id number] [address] [place] Potassium [Moles/Vol] 3.7 mmol/L Normal 3.5-5.0 [facility] Comment on above: Order Comment: Speci men Type: ARTERIAL BLOOD SPECIMENOrdering Facility: [facility] Address: [address] [place] [address] Performed By: #### A LLBG ####[facility] LABORATORYCLIA [id number] [place] [address] [place] Sodium [Moles/Vol] 155 mmol/L High 136-144 [facility] Comment on above: Order Comment: Speci men Type: ARTERIAL BLOOD SPECIMENOrdering Facility: [facility] Address: [address] [place] [address] Performed By: #### A LLBG ####[facility] LABORATORYCLIA [id number] [place] [address] [place] Bacteria Spec Resp Culton Bacteria identified Respiratory culture Nom (Unsp spec) CULTURE, RESPIRATORY: Rare Normal respiratory chris present ORGANISM ID: 1 Few Yeast, not cryptococcus neoformans GRAM STAIN: No organisms seen Few Polymorphonuclear leukocytes Few Epithelial cells Abnormal [facility] Comment on above: Performed By: #### 3 2355-0 ####[facility]ORATORYCLIA [id number] [place] [address] [place] Basic metabolic 2000 panelon 06-16-2021 Anion gap [Moles/Vol] 9 mmol/L Normal 9-18 [facility] Comment on above: Order Comment: Speci men Type: BLOOD SPECIMENOrdering Facility: [facility] Address: [address] [place] [address] Performed By: #### 2 4321-2 ####[facility]ORATORYCLIA [id number] [place] [address] [place] Calcium [Mass/Vol] 8.4 mg/dL Low 8.5-10.2 [facility] Comment on above: Order Comment: Speci men Type: BLOOD SPECIMENOrdering Facility: [facility] Address: [address] [place] [address] Performed By: #### 2 4321-2 ####[facility]ORATORYCLIA [id number] [place] [address] [place] Chloride [Moles/Vol] 120 mmol/L High 97-105 [facility] Comment on above: Order Comment: Speci men Type: BLOOD SPECIMENOrdering Facility: [facility] Address: [address] [place] [address] Performed By: #### 2 4321-2 ####[facility]ORATORYCLIA [id number] [place] [address] [place] CO2 [Moles/Vol] 27 mmol/L Normal 22-30 [facility] Comment on above: Order Comment: Speci men Type: BLOOD SPECIMENOrdering Facility: [facility] Address: [address] [place] [address] Performed By: #### 2 4321-2 ####[facility]ORATORYCLIA [id number] [place] [address] [place] Creatinine [Mass/Vol] 0.75 mg/dL Normal 0.73-1.22 [facility] Comment on above: Order Comment: Speci men Type: BLOOD SPECIMENOrdering Facility: [facility] Address: [address] [place] [address] Performed By: #### 2 4321-2 ####[facility]ITALIA [id number] [place] [address] [place] GFR/1.73 sq M.predicted MDRD (S/P/Bld) [Vol rate/Area] mL/min/{1.73_m2} Normal [facility] Comment on above: Order Comment: Speci francia Type: BLOOD SPECIMENOrdering Facility: [facility] Address: [address] [place] [address] Result Comment: >60e GFR (Estimated GFR) Units [...] #### 2 4321-2 ####[facility]ORATORYCLIA [id number] [place] [address] [place] Glucose [Mass/Vol] 160 mg/dL High 74-99 [facility] Comment on above: Order Comment: Speci men Type: BLOOD SPECIMENOrdering Facility: [facility] Address: [address] [place] [address] Result Comment: The [place] [employer] (ADA) provides guidance for cutoff [...] Standards of Medical Care in Diabetes 2016, [employer] [place] [employer]. Diabetes Care. 2016.39(Suppl 1). Performed By: #### 2 4321-2 ####[facility]ORATORYCLIA [id number] [place] [address] [place] Potassium [Moles/Vol] 3.1 mmol/L Low 3.7-5.1 [facility] Comment on above: Order Comment: [facility] Type: BLOOD SPECIMENOrdering Facility: [facility] Address: [address] [address] Performed By: #### 2 4321-2 ####[facility]ORATORYCLIA [id number] [place] [address] [place] Sodium [Moles/Vol] 156 mmol/L High 136-144 [facility] Comment on above: Order Comment: Johni men Type: BLOOD SPECIMENOrdering Facility: [facility] Address: [address] [address] Performed By: #### 2 4321-2 ####[facility]ORATORYCLIA [id number] [place] [address] [place] Urea nitrogen [Mass/Vol] 33 mg/dL High 9-24 [facility] Comment on above: Order Comment: [facility] Type: BLOOD SPECIMENOrdering Facility: [facility] Address: [address] [address] Performed By: #### 2 4321-2 ####[facility] LABORATORYCLIA [id number] [address] CASE MANAGEMon 06-16-2021 CASE MANAGEM Normal [facility] CBC panel Auto (Bld)on 06-16 Erythrocyte distribution width (RBC) [Ratio] 15.9 % High 11.5-15.0 [facility] Comment on above: Order Comment: Speci men Type: BLOOD SPECIMENOrdering Facility: [facility] Address: [address] [place] [address] Performed By: #### 5 8410-2 ####[facility]ORATORYCLIA [id number] [address] Hematocrit (Bld) [Volume fraction] 34.6 % Low 39.0-51.0 [facility] Comment on above: Order Comment: Speci men Type: BLOOD SPECIMENOrdering Facility: [facility] Address: [address] [place] [address] Performed By: #### 5 8410-2 ####[facility]ORATORYCLIA [id number] [address] Hemoglobin (Bld) [Mass/Vol] 10.2 g/dL Low 13.0-17.0 [facility] Comment on above: Order Comment: Speci men Type: BLOOD SPECIMENOrdering Facility: [facility] Address: [address] [place] [address] Performed By: #### 5 8410-2 ####[facility] LABORATORYCLIA [id number] [address] MCH (RBC) [Entitic mass] 28.5 pg Normal 26.0-34.0 [facility] Comment on above: Order Comment: Speci men Type: BLOOD SPECIMENOrdering Facility: [facility] Address: [address] [place] [address] Performed By: #### 5 8410-2 ####[facility] LABORATORYCLIA [id number] [place] [address] MCHC (RBC) [Mass/Vol] 29.5 g/dL Low 30.5-36.0 [facility] Comment on above: Order Comment: Speci men Type: BLOOD SPECIMENOrdering Facility: [facility] Address: [address] [place] [address] Performed By: #### 5 8410-2 ####[facility]ORATORYCLIA [id number] [address] [place] MCV (RBC) [Entitic vol] 96.6 fL Normal 80.0-100.0 [facility] Comment on above: Order Comment: Speci men Type: BLOOD SPECIMENOrdering Facility: [facility] Address: [address] [place] [address] Performed By: #### 5 8410-2 ####[facility] LABORATORYCLIA [id number] [address] Nucleated RBC (Bld) [#/Vol] 10*3/uL Normal <0.01 [facility] Comment on above: Order Comment: Speci men Type: BLOOD SPECIMENOrdering Facility: [facility] Address: [address] [place] [address] Performed By: #### 5 8410-2 ####[facility]ORATORYCLIA [id number] [address] [place] Platelet mean volume (Bld) [Entitic vol] 11.9 fL Normal 9.0-12.7 [facility] Comment on above: Order Comment: Speci men Type: BLOOD SPECIMENOrdering Facility: [facility] Address: [address] [place] [address] Performed By: #### 5 8410-2 ####[facility]ORATORYCLIA [id number] [address] [place] Platelets (Bld) [#/Vol] 269 10*3/uL Normal 150-400 [facility] Comment on above: Order Comment: Speci men Type: BLOOD SPECIMENOrdering Facility: [facility] Address: [address] [address] Performed By: #### 5 8410-2 ####[facility]ORATORYCLIA [id number] [address] [place] RBC (Bld) [#/Vol] 3.58 10*6/uL Low 4.20-6.00 [facility] Comment on above: Order Comment: Speci men Type: BLOOD SPECIMENOrdering Facility: [facility] Address: [address] [place] [address] Performed By: #### 5 8410-2 ####[facility]ORATORYCLIA [id number] [address] STATES [place] [facility] WBC (Bld) [#/Vol] 13.11 10*3/uL High 3.70-11.00 [facility] Comment on above: Order Comment: Speci men Type: BLOOD SPECIMENOrdering Facility: [facility] Address: [address] [place] [address] Performed By: #### 5 8410-2 ####[facility] LABORATORYCLIA [id number] [address] [place] CONSULTon 06-16-2021 CONSULT Normal [facility] CONSULT PROGon 06-16-2021 CONSULT PROG Normal [facility] CT BRAIN WO IVCONon 06-16-[address] BRAIN WO IVCON Normal [facility] HEMOGLOBIN (HGB)on 2 Hemoglobin (Bld) [Mass/Vol] 8.9 g/dL Low 13.0-17.0 [facility] Comment on above: Order Comment: Speci men Type: BLOOD SPECIMENOrdering Facility: [facility] Address: [address] [place] [address] Performed By: #### H GB ####[facility]ORATORYCLIA [id number] [address] [place] [facility] Hemoglobin (Bld) [Mass/Vol] 9.6 g/dL Low 13.0-17.0 [facility] Comment on above: Order Comment: Speci men Type: BLOOD SPECIMENOrdering Facility: [facility] Address: [address] [place] [address] Performed By: #### H GB ####[facility]ORATORYCLIA [id number] [place] [address] [place] Magnesium SerPl-mCncon 06-16 Magnesium [Mass/Vol] 2.7 mg/dL High 1.7-2.3 [facility] Comment on above: Order Comment: Speci men Type: BLOOD SPECIMENOrdering Facility: [facility] Address: [address] [place] [address] Performed By: #### 1 9123-9 ####[facility]ORATORYCLIA [id number] [place] [address] [place] NURSING PROGon 06-16-2021 NURSING PROG Normal [facility] NUTRITIONon 06-16-2021 NUTRITION Normal [facility] Phosphate SerPl-mCncon 06-16 Phosphate [Mass/Vol] 1.4 mg/dL Low 2.7-4.8 [facility] Comment on above: Order Comment: Speci men Type: BLOOD SPECIMENOrdering Facility: [facility] Address: [address] [place] [address] Performed By: #### 2 777-1 ####[facility] LABORATORYCLIA [id number] [address] [place] STAPH AUREUS PCRon 2 S. aureus and MRSA panel MEGAN+probe (Nose) Normal Negative [facility] Comment on above: Order Comment: Speci men Type: SWAB OF INTERNAL NOSEOrdering Facility: [facility] Address: [address] [place] [address] Result Comment: Nega tive for Staphylococcus aureus by PCR.Negative for MRSA by PCR Performed By: #### S APCR ####[facility]ORATORYCLIA [id number] [place] [address] [place] Sodium SerPl-sCncon 06-16-19 Sodium [Moles/Vol] 150 mmol/L High 136-144 [facility] Comment on above: Order Comment: Speci men Type: BLOOD SPECIMENOrdering Facility: [facility] Address: [address] [place] [address] Performed By: #### 2 951-2 ####[facility]ORATORYCLIA [id number] [address] [place] Sodium [Moles/Vol] 153 mmol/L High 136-144 [facility] Comment on above: Order Comment: Speci men Type: BLOOD SPECIMENOrdering Facility: [facility] Address: [address] [place] [address] Performed By: #### 2 951-2 ####[facility]ORATORYCLIA [id number] [address] [place] [facility] Sodium [Moles/Vol] 158 mmol/L High 136-144 [facility] Comment on above: Order Comment: Speci men Type: BLOOD SPECIMENOrdering Facility: [facility] Address: [address] [place] [address] Performed By: #### 2 951-2 ####[facility]ORATORYCLIA [id number] [address] [place] aPTT PPPon 06-16-2021 aPTT Coag (PPP) [Time] 61.8 s High 23.0-32.4 [facility] Comment on above: Order Comment: Speci men Type: BLOOD SPECIMENOrdering Facility: [facility] Address: [address] [place] [address] Performed By: #### 1 4979-9 ####[facility]ORATORYCLIA [id number] [address] [place] aPTT Coag (PPP) [Time] 57.6 s High 23.0-32.4 [facility] Comment on above: Order Comment: Speci men Type: BLOOD SPECIMENOrdering Facility: [facility] Address: [address] [place] [address] Performed By: #### 1 4979-9 ####[facility]ORATORYCLIA [id number] [place] [address] [place] ALLIED HEALTHon 06-15-2021 ALLIED HEALTH Normal [facility] ALLIED HEALTH Normal [facility] ALLIED HEALTH Normal [facility] ALLIED HEALTH Normal [facility] ARTERIAL BLOOD GASESon 06-15 Base excess Calc (Bld) [Moles/Vol] 3 mmol/L High 0-2 [facility] Comment on above: Order Comment: Speci men Type: ARTERIAL BLOOD SPECIMENOrdering Facility: [facility] Address: [address] [place] [address] Performed By: #### A LLBG ####[facility]ORATORYCLIA [id number] [address] Body temperature 99.5 [degF] Normal [facility] Comment on above: Order Comment: Speci men Type: ARTERIAL BLOOD SPECIMENOrdering Facility: [facility] Address: [address] [place] [address] Performed By: #### A LLBG ####[facility]ORATORYCLIA [id number] [place] [address] [place] CALCIUM IONIZED, PH CORRECTED 1.34 mmol/L High 1.08-1.30 [facility] Comment on above: Order Comment: Speci men Type: ARTERIAL BLOOD SPECIMENOrdering Facility: [facility] Address: [address] [place] [address] Performed By: #### A LLBG ####[facility]ORATORYCLIA [id number] [place] [address] [place] Calcium.ionized (BldV) [Mass/Vol] 1.29 mmol/L Normal 1.08-1.30 [facility] Comment on above: Order Comment: Speci men Type: ARTERIAL BLOOD SPECIMENOrdering Facility: [facility] Address: [address] [place] [address] Performed By: #### A LLBG ####[facility]ORATORYCLIA [id number] [address] [place] Carboxyhemoglobin (BldA) [Mass fraction] 1.3 % Normal 0.0-2.0 [facility] Comment on above: Order Comment: Speci men Type: ARTERIAL BLOOD SPECIMENOrdering Facility: [facility] Address: [address] [address] Result Comment: Carb oxyhemoglobin Reference Range for Smokers: 2.0-8.0% Performed By: #### A LLBG ####[facility]ORATORYCLIA [id number] [address] [place] CO2 (Bld) [Partial pressure] 37 mm Hg Normal 36-46 [facility] Comment on above: Order Comment: Speci men Type: ARTERIAL BLOOD SPECIMENOrdering Facility: [facility] Address: [address] [place] [address] Performed By: #### A LLBG ####[facility]ORATORYCLIA [id number] [address] [place] CO2 [Moles/Vol] 24.6 mmol/L Normal 22-28 [facility] Comment on above: Order Comment: Speci men Type: ARTERIAL BLOOD SPECIMENOrdering Facility: [facility] Address: [address] [place] [address] Performed By: #### A LLBG ####[place] [facility] LABORATORYCLIA [id number] [address] [place] CO2 adjusted to patient's actual temperature (Bld) [Partial pressure] 38 mmHg Normal 36-46 [facility] Comment on above: Order Comment: Speci men Type: ARTERIAL BLOOD SPECIMENOrdering Facility: [facility] Address: [address] [address] Performed By: #### A LLBG ####[facility]ORATORYCLIA [id number] [address] [place] FIO2 100 % Normal [facility] Comment on above: Order Comment: Speci men Type: ARTERIAL BLOOD SPECIMENOrdering Facility: [facility] Address: [address] [address] Performed By: #### A LLBG ####[facility]ORATORYCLIA [id number] [address] [place] Glucose [Mass/Vol] 159 mg/dL High 60-105 [facility] Comment on above: Order Comment: Speci men Type: ARTERIAL BLOOD SPECIMENOrdering Facility: [facility] Address: [address] [address] Performed By: #### A LLBG ####[facility]ORATORYCLIA [id number] [place] [address] [place] HCO3 (Bld) [Moles/Vol] 27 mmol/L High 22-26 [facility] Comment on above: Order Comment: Speci men Type: ARTERIAL BLOOD SPECIMENOrdering Facility: [facility] Address: [address] [place] [address] Performed By: #### A LLBG ####[facility]ORATORYCLIA [id number] [address] [place] Hematocrit (Bld) [Volume fraction] 31.0 % Low 39.0-51.0 [facility] Comment on above: Order Comment: Speci men Type: ARTERIAL BLOOD SPECIMENOrdering Facility: [facility] Address: [address] [place] [address] Performed By: #### A LLBG ####[facility]ORATORYCLIA [id number] [address] [place] Hemoglobin (Bld) [Mass/Vol] 10.0 g/dL Low 13.0-17.0 [facility] Comment on above: Order Comment: Speci men Type: ARTERIAL BLOOD SPECIMENOrdering Facility: [facility] Address: [address] [address] Performed By: #### A LLBG ####[facility]ORATORYCLIA [id number] [address] [place] Methemoglobin (Bld) [Mass fraction] % Normal 0.0-1.5 [facility] Comment on above: Order Comment: Speci men Type: ARTERIAL BLOOD SPECIMENOrdering Facility: [facility] Address: [address] [place], [place] [address] Performed By: #### A LLBG ####[facility]ORATORYCLIA [id number] [address] O2 THERAPY Ventilator Normal [facility] Comment on above: Order Comment: Speci men Type: ARTERIAL BLOOD SPECIMENOrdering Facility: [facility] Address: [address] [address] Performed By: #### A LLBG ####[facility]ORATORYCLIA [id number] [address] [place] Oxygen (Bld) [Partial pressure] 279 mm Hg High 85-95 [facility] Comment on above: Order Comment: Speci men Type: ARTERIAL BLOOD SPECIMENOrdering Facility: [facility] Address: [address] [address] Performed By: #### A LLBG ####[facility]ORATORYCLIA [id number] [address] Oxygen adjusted to patient's actual temperature (Bld) [Partial pressure] 281 mmHg High 85-95 [facility] Comment on above: Order Comment: Speci men Type: ARTERIAL BLOOD SPECIMENOrdering Facility: [facility] Address: [facility] [address] Performed By: #### A LLBG ####[facility] LABORATORYCLIA [id number] [address] [place] OXYGEN SATURATION, ARTERIAL 100 % High 95-98 [facility] Comment on above: Order Comment: Speci men Type: ARTERIAL BLOOD SPECIMENOrdering Facility: [facility] Address: [address] [address] Performed By: #### A LLBG ####[facility]ORATORYCLIA [id number] [address] Oxyhemoglobin (BldA) [Mass fraction] 98 % Normal 95-98 [facility] Comment on above: Order Comment: Speci men Type: ARTERIAL BLOOD SPECIMENOrdering Facility: [facility] Address: [address] [place] [address] Performed By: #### A LLBG ####[facility]ORATORYCLIA [id number] [address] [place] pH (Bld) 7.47 [pH] High 7.35-7.45 [facility] Comment on above: Order Comment: Speci men Type: ARTERIAL BLOOD SPECIMENOrdering Facility: [facility] Address: [address] [place] [address] Performed By: #### A LLBG ####[facility]ORATORYCLIA [id number] [address] pH adjusted to patient's actual temperature (Bld) 7.46 High 7.35-7.45 [facility] Comment on above: Order Comment: Speci men Type: ARTERIAL BLOOD SPECIMENOrdering Facility: [facility] Address: [address] [place] [address] Performed By: #### A LLBG ####[facility]ORATORYCLIA [id number] [address] [place] Potassium [Moles/Vol] 3.6 mmol/L Normal 3.5-5.0 [facility] Comment on above: Order Comment: Speci men Type: ARTERIAL BLOOD SPECIMENOrdering Facility: [facility] Address: [address] [place] [address] Performed By: #### A LLBG ####[facility]ORATORYCLIA [id number] [address] [place] Sodium [Moles/Vol] 162 mmol/L High 136-144 [facility] Comment on above: Order Comment: Speci men Type: ARTERIAL BLOOD SPECIMENOrdering Facility: [facility] Address: [address] [place] [address] Performed By: #### A LLBG ####[facility]ORATORYCLIA [id number] [place] [address] [place] Base excess Calc (Bld) [Moles/Vol] 4 mmol/L High 0-2 [facility] Comment on above: Order Comment: Speci men Type: ARTERIAL BLOOD SPECIMENOrdering Facility: [facility] Address: [address] [place] [address] Performed By: #### A LLBG ####[facility]ORATORYCLIA [id number] [address] Body temperature 100.58 [degF] Normal [facility] Comment on above: Order Comment: Speci men Type: ARTERIAL BLOOD SPECIMENOrdering Facility: [facility] Address: [address] [place] [address] Performed By: #### A LLBG ####[facility]ORATORYCLIA [id number] [address] [place] CALCIUM IONIZED, PH CORRECTED 1.34 mmol/L High 1.08-1.30 [facility] Comment on above: Order Comment: Speci men Type: ARTERIAL BLOOD SPECIMENOrdering Facility: [facility] Address: [address] [place] [address] Performed By: #### A LLBG ####[facility]ORATORYCLIA [id number] [address] [place] Calcium.ionized (BldV) [Mass/Vol] 1.33 mmol/L High 1.08-1.30 [facility] Comment on above: Order Comment: Speci men Type: ARTERIAL BLOOD SPECIMENOrdering Facility: [facility] Address: [address] [place] [address] Performed By: #### A LLBG ####[facility] [facility] LABORATORYCLIA [id number] [address] Carboxyhemoglobin (BldA) [Mass fraction] 1.5 % Normal 0.0-2.0 [facility] Comment on above: Order Comment: Speci men Type: ARTERIAL BLOOD SPECIMENOrdering Facility: [facility] Address: [address] [place] [address] Result Comment: Carb oxyhemoglobin Reference Range for Smokers: 2.0-8.0% Performed By: #### A LLBG ####[facility]ATORYCLIA [id number] [address] CO2 (Bld) [Partial pressure] 46 mm Hg Normal 36-46 [facility] Comment on above: Order Comment: Speci men Type: ARTERIAL BLOOD SPECIMENOrdering Facility: [facility] Address: [address] [place] [address] Performed By: #### A LLBG ####[facility]ORATORYCLIA [id number] [address] [place] CO2 [Moles/Vol] 26.4 mmol/L Normal 22-28 [facility] Comment on above: Order Comment: Speci men Type: ARTERIAL BLOOD SPECIMENOrdering Facility: [facility] Address: [address] [place] [address] Performed By: #### A LLBG ####[facility] LABORATORYCLIA [id number] [address] CO2 adjusted to patient's actual temperature (Bld) [Partial pressure] 48 mmHg High 36-46 [facility] Comment on above: Order Comment: Speci men Type: ARTERIAL BLOOD SPECIMENOrdering Facility: [facility] Address: [address] [place] [address] Performed By: #### A LLBG ####[facility] LABORATORYCLIA [id number] [address] [place] FIO2 100 % Normal [facility] Comment on above: Order Comment: Speci men Type: ARTERIAL BLOOD SPECIMENOrdering Facility: [facility] Address: [address] [place] [address] Performed By: #### A LLBG ####[facility] LABORATORYCLIA [id number] [address] [place] Glucose [Mass/Vol] 132 mg/dL High 60-105 [facility] Comment on above: Order Comment: Speci men Type: ARTERIAL BLOOD SPECIMENOrdering Facility: [facility] Address: [address] [place] [address] Performed By: #### A LLBG ####[facility]ORATORYCLIA [id number] [address] [place] HCO3 (Bld) [Moles/Vol] 29 mmol/L High 22-26 [facility] Comment on above: Order Comment: Speci men Type: ARTERIAL BLOOD SPECIMENOrdering Facility: [facility] Address: [address] [place] [address] Performed By: #### A LLBG ####[facility] LABORATORYCLIA [id number] [address] OF [facility] Hematocrit (Bld) [Volume fraction] 32.3 % Low 39.0-51.0 [facility] Comment on above: Order Comment: Speci men Type: ARTERIAL BLOOD SPECIMENOrdering Facility: [facility] Address: [address] [place] [address] Performed By: #### A LLBG ####[facility] LABORATORYCLIA [id number] [address] [place] Hemoglobin (Bld) [Mass/Vol] 10.4 g/dL Low 13.0-17.0 [facility] Comment on above: Order Comment: Speci men Type: ARTERIAL BLOOD SPECIMENOrdering Facility: [facility] Address: [address] [place] [address] Performed By: #### A LLBG ####[facility] LABORATORYCLIA [id number] [address] Methemoglobin (Bld) [Mass fraction] % Normal 0.0-1.5 [facility] Comment on above: Order Comment: Speci men Type: ARTERIAL BLOOD SPECIMENOrdering Facility: [facility] Address: [address] [place] [address] Performed By: #### A LLBG ####[facility] LABORATORYCLIA [id number] [address] O2 THERAPY NR=Non-Rebreather Mask Normal [facility] Comment on above: Order Comment: Speci men Type: ARTERIAL BLOOD SPECIMENOrdering Facility: [facility] Address: [address] [place] [address] Performed By: #### A LLBG ####[facility] LABORATORYCLIA [id number] [address] [place] Oxygen (Bld) [Partial pressure] 130 mm Hg High 85-95 [facility] Comment on above: Order Comment: Speci men Type: ARTERIAL BLOOD SPECIMENOrdering Facility: [facility] Address: [address] [place] [address] Performed By: #### A LLBG ####[facility] LABORATORYCLIA [id number] [address] [place] Oxygen adjusted to patient's actual temperature (Bld) [Partial pressure] 136 mmHg High 85-95 [facility] Comment on above: Order Comment: Speci men Type: ARTERIAL BLOOD SPECIMENOrdering Facility: [facility] Address: [address] [place] [address] Performed By: #### A LLBG ####[facility] LABORATORYCLIA [id number] [address] [place] OXYGEN SATURATION, ARTERIAL 99 % High 95-98 [facility] Comment on above: Order Comment: Speci men Type: ARTERIAL BLOOD SPECIMENOrdering Facility: [facility] Address: [address] [place] [address] Performed By: #### A LLBG ####[facility] LABORATORYCLIA [id number] [address] [place] Oxyhemoglobin (BldA) [Mass fraction] 97 % Normal 95-98 [facility] Comment on above: Order Comment: Speci men Type: ARTERIAL BLOOD SPECIMENOrdering Facility: [facility] Address: [address] [address] Performed By: #### A LLBG ####[facility] LABORATORYCLIA [id number] [address] [place] pH (Bld) 7.41 [pH] Normal 7.35-7.45 [facility] Comment on above: Order Comment: Speci men Type: ARTERIAL BLOOD SPECIMENOrdering Facility: [facility] Address: [address] [place] [address] Performed By: #### A LLBG ####[facility] LABORATORYCLIA [id number] [address] STATES [facility] pH adjusted to patient's actual temperature (Bld) 7.40 Normal 7.35-7.45 [facility] Comment on above: Order Comment: Speci men Type: ARTERIAL BLOOD SPECIMENOrdering Facility: [facility] Address: [address] [place] [address] Performed By: #### A LLBG ####[facility] LABORATORYCLIA [id number] [address] [facility] Potassium [Moles/Vol] 3.8 mmol/L Normal 3.5-5.0 [facility] Comment on above: Order Comment: Speci men Type: ARTERIAL BLOOD SPECIMENOrdering Facility: [facility] Address: [address] [place] [address] Performed By: #### A LLBG ####[facility] LABORATORYCLIA [id number] [address] STATES [facility] Sodium [Moles/Vol] 166 mmol/L High 136-144 [facility] Comment on above: Order Comment: Speci men Type: ARTERIAL BLOOD SPECIMENOrdering Facility: [facility] Address: [address] [place] [address] Performed By: #### A LLBG ####[facility] LABORATORYCLIA [id number] [address] [place] Bacteria Bld Culton 06-15-19 22 Bacteria identified Cx Nom (Bld) CULTURE, BLOOD: No growth 5 days Normal [facility] Comment on above: Performed By: #### 6 00-7 ####[facility] LABORATORYCLIA [id number] [address] [place] Basic metabolic 2000 panelon 06-15-2021 Anion gap [Moles/Vol] 9 mmol/L Normal 9-18 [facility] Comment on above: Order Comment: Speci men Type: BLOOD SPECIMEN Performed By: #### 2 4321-2, 2776-05, ####[facility] LABORATORYCLIA [id number] [place], [place] [id number] [place] [address] [place] [facility] Calcium [Mass/Vol] 9.0 mg/dL Normal 8.5-10.2 [facility] Comment on above: Order Comment: Speci men Type: BLOOD SPECIMEN Performed By: #### 2 4321-2, 2776-05, ####[facility] LABORATORYCLIA [id number] [place], [place] [id number] [place] [address] [place] Chloride [Moles/Vol] 125 mmol/L High 97-105 [facility] Comment on above: Order Comment: Speci men Type: BLOOD SPECIMEN Performed By: #### 2 4321-2, 2776-05, ####[facility] LABORATORYCLIA [id number] [address] [place] CO2 [Moles/Vol] 29 mmol/L Normal 22-30 [facility] Comment on above: Order Comment: Speci men Type: BLOOD SPECIMEN Performed By: #### 2 4321-2, 2776-05, ####[facility]ORATORYCLIA [id number] [address] [place] Creatinine [Mass/Vol] 0.81 mg/dL Normal 0.73-1.22 [facility] Comment on above: Order Comment: Speci men Type: BLOOD SPECIMEN Performed By: #### 2 4321-2, 2776-05, ####[facility] LABORATORYCLIA [id number] [place] [address] [place] GFR/1.73 sq M.predicted [...] has been calibrated to be traceable to IDUT. An eGFR <60 mL/min/1.73m2 for >3 months is consistent with chronic kidney disease. Refer to KDOQI guidelines for clinical interpretation. In patients with unstable renal function, e.g. those with acute kidney injury, the eGFR may not accurately reflect actual GFR. Performed By: #### 2 4321-2, 2776-05, ####[facility] LABORATORYCLIA [id number] [place] [address] [place] Glucose [Mass/Vol] 124 mg/dL High 74-99 [facility] Comment on above: Order Comment: Speci men Type: BLOOD SPECIMEN Result Comment: The [employer] [place] [employer] (ADA) provides guidance for cutoff [...] Standards of Medical Care in Diabetes 2016, [employer] [place] [employer]. Diabetes Care. 2016.39(Suppl 1). Performed By: #### 2 4321-2, 2776-05, ####[facility] LABORATORYCLIA [id number] [address] [place] Potassium [Moles/Vol] 3.8 mmol/L Normal 3.7-5.1 [facility] Comment on above: Order Comment: Speci men Type: BLOOD SPECIMEN Performed By: #### 2 4321-2, 2776-05, ####[facility] LABORATORYCLIA [id number] [address] [place] Sodium [Moles/Vol] 163 mmol/L High 136-144 [facility] Comment on above: Order Comment: Speci men Type: BLOOD SPECIMEN Performed By: #### 2 4321-2, 2776-1, ####[facility] LABORATORYCLIA [id number] [address] Urea nitrogen [Mass/Vol] 35 mg/dL High 9-24 [facility] Comment on above: Order Comment: Speci men Type: BLOOD SPECIMEN Performed By: #### 2 4321-2, 2776-, ####[facility] LABORATORYCLIA [id number] [address] CBC panel Auto (Bld)on 06-15 Erythrocyte distribution width (RBC) [Ratio] 16.3 % High 11.5-15.0 [facility] Comment on above: Order Comment: Speci men Type: BLOOD SPECIMENOrdering Facility: [facility] Address: [address] [place] [address] Performed By: #### 5 8410-2 ####[facility] LABORATORYCLIA [id number] [address] Hematocrit (Bld) [Volume fraction] 30.0 % Low 39.0-51.0 [facility] Comment on above: Order Comment: Speci men Type: BLOOD SPECIMENOrdering Facility: [facility] Address: [address] [place] [address] Performed By: #### 5 8410-2 ####[facility] LABORATORYCLIA [id number] [address] Hemoglobin (Bld) [Mass/Vol] 8.9 g/dL Low 13.0-17.0 [facility] Comment on above: Order Comment: Speci men Type: BLOOD SPECIMENOrdering Facility: [facility] Address: [address] [place] [address] Performed By: #### 5 8410-2 ####[facility] LABORATORYCLIA [id number] [address] MCH (RBC) [Entitic mass] 28.7 pg Normal 26.0-34.0 [facility] Comment on above: Order Comment: Speci men Type: BLOOD SPECIMENOrdering Facility: [facility] Address: [address] [place] [address] Performed By: #### 5 8410-2 ####[facility] LABORATORYCLIA [id number] [address] MCHC (RBC) [Mass/Vol] 29.7 g/dL Low 30.5-36.0 [facility] Comment on above: Order Comment: Speci men Type: BLOOD SPECIMENOrdering Facility: [facility] Address: [address] [place] [address] Performed By: #### 5 8410-2 ####[facility] LABORATORYCLIA [id number] [address] STATES [facility] MCV (RBC) [Entitic vol] 96.8 fL Normal 80.0-100.0 [facility] Comment on above: Order Comment: Speci men Type: BLOOD SPECIMENOrdering Facility: [facility] Address: [address] [place] [address] Performed By: #### 5 8410-2 ####[facility] LABORATORYCLIA [id number] [address] Nucleated RBC (Bld) [#/Vol] 10*3/uL Normal <0.01 [facility] Comment on above: Order Comment: Speci men Type: BLOOD SPECIMENOrdering Facility: [facility] Address: [address] [place] [address] Performed By: #### 5 8410-2 ####[facility] LABORATORYCLIA [id number] [address] Platelet mean volume (Bld) [Entitic vol] 12.3 fL Normal 9.0-12.7 [facility] Comment on above: Order Comment: Speci men Type: BLOOD SPECIMENOrdering Facility: [facility] Address: [address] [place] [address] Performed By: #### 5 8410-2 ####[facility] LABORATORYCLIA [id number] [address] [place] Platelets (Bld) [#/Vol] 226 10*3/uL Normal 150-400 [facility] Comment on above: Order Comment: Speci men Type: BLOOD SPECIMENOrdering Facility: [facility] Address: [address] [place] [address] Performed By: #### 5 8410-2 ####[facility] LABORATORYCLIA [id number] [address] OF [facility] RBC (Bld) [#/Vol] 3.10 10*6/uL Low 4.20-6.00 [facility] Comment on above: Order Comment: Speci men Type: BLOOD SPECIMENOrdering Facility: [facility] Address: [address] [place] [address] Performed By: #### 5 8410-2 ####[facility] LABORATORYCLIA [id number] [address] WBC (Bld) [#/Vol] 10.77 10*3/uL Normal 3.70-11.00 [facility] Comment on above: Order Comment: Speci men Type: BLOOD SPECIMENOrdering Facility: [facility] Address: [address] [place] [address] Performed By: #### 5 8410-2 ####[facility] LABORATORYCLIA [id number] [address] Erythrocyte distribution width (RBC) [Ratio] 16.2 % High 11.5-15.0 [facility] Comment on above: Order Comment: Speci men Type: BLOOD SPECIMENOrdering Facility: [facility] Address: [address] [place] [address] Performed By: #### 5 8410-2 ####[facility] LABORATORYCLIA [id number] [address] [facility] Hematocrit (Bld) [Volume fraction] 34.8 % Low 39.0-51.0 [facility] Comment on above: Order Comment: Speci men Type: BLOOD SPECIMENOrdering Facility: [facility] Address: [address] [place] [address] Performed By: #### 5 8410-2 ####[facility] LABORATORYCLIA [id number] [address] [place] [facility] Hemoglobin (Bld) [Mass/Vol] 10.0 g/dL Low 13.0-17.0 [facility] Comment on above: Order Comment: Speci men Type: BLOOD SPECIMENOrdering Facility: [facility] Address: [address] [place] [address] Performed By: #### 5 8410-2 ####[facility] LABORATORYCLIA [id number] [address] [place] [facility] MCH (RBC) [Entitic mass] 27.5 pg Normal 26.0-34.0 [facility] Comment on above: Order Comment: Speci men Type: BLOOD SPECIMENOrdering Facility: [facility] Address: [address] [place] [address] Performed By: #### 5 8410-2 ####[facility] LABORATORYCLIA [id number] [address] OF [facility] MCHC (RBC) [Mass/Vol] 28.7 g/dL Low 30.5-36.0 [facility] Comment on above: Order Comment: Speci men Type: BLOOD SPECIMENOrdering Facility: [facility] Address: [address] [place] [address] Performed By: #### 5 8410-2 ####[facility] LABORATORYCLIA [id number] [address] [place] MCV (RBC) [Entitic vol] 95.6 fL Normal 80.0-100.0 [facility] Comment on above: Order Comment: Speci men Type: BLOOD SPECIMENOrdering Facility: [facility] Address: [address] [place] [address] Performed By: #### 5 8410-2 ####[facility] LABORATORYCLIA [id number] [address] [place] Nucleated RBC (Bld) [#/Vol] 10*3/uL Normal <0.01 [facility] Comment on above: Order Comment: Speci men Type: BLOOD SPECIMENOrdering Facility: [facility] Address: [address] [place] [address] Performed By: #### 5 8410-2 ####[facility] LABORATORYCLIA [id number] [address] [place] Platelet mean volume (Bld) [Entitic vol] 11.9 fL Normal 9.0-12.7 [facility] Comment on above: Order Comment: Speci men Type: BLOOD SPECIMENOrdering Facility: [facility] Address: [address] [place] [address] Performed By: #### 5 8410-2 ####[facility] LABORATORYCLIA [id number] [address] [place] Platelets (Bld) [#/Vol] 246 10*3/uL Normal 150-400 [facility] Comment on above: Order Comment: Speci men Type: BLOOD SPECIMENOrdering Facility: [facility] Address: [address] [place] [address] Performed By: #### 5 8410-2 ####[facility] LABORATORYCLIA [id number] [address] [place] RBC (Bld) [#/Vol] 3.64 10*6/uL Low 4.20-6.00 [facility] Comment on above: Order Comment: Speci men Type: BLOOD SPECIMENOrdering Facility: [facility] Address: [address] [place] [address] Performed By: #### 5 8410-2 ####[facility] LABORATORYCLIA [id number] [address] [place] WBC (Bld) [#/Vol] 11.45 10*3/uL High 3.70-11.00 [facility] Comment on above: Order Comment: Speci men Type: BLOOD SPECIMENOrdering Facility: [facility] Address: [address] [place] [address] Performed By: #### 5 8410-2 ####[facility] LABORATORYCLIA [id number] [address] Erythrocyte distribution width (RBC) [Ratio] 15.9 % High 11.5-15.0 [facility] Comment on above: Order Comment: Speci men Type: BLOOD SPECIMEN Performed By: #### 5 8410-2 ####[facility] LABORATORYCLIA [id number] [address] Hematocrit (Bld) [Volume fraction] 35.8 % Low 39.0-51.0 [facility] Comment on above: Order Comment: Speci men Type: BLOOD SPECIMEN Performed By: #### 5 8410-2 ####[facility] LABORATORYCLIA [id number] [address] Hemoglobin (Bld) [Mass/Vol] 10.4 g/dL Low 13.0-17.0 [facility] Comment on above: Order Comment: Speci men Type: BLOOD SPECIMEN Performed By: #### 5 8410-2 ####[facility] LABORATORYCLIA [id number] [address] MCH (RBC) [Entitic mass] 28.0 pg Normal 26.0-34.0 [facility] Comment on above: Order Comment: Speci men Type: BLOOD SPECIMEN Performed By: #### 5 8410-2 ####[facility] LABORATORYCLIA [id number] [address] MCHC (RBC) [Mass/Vol] 29.1 g/dL Low 30.5-36.0 [facility] Comment on above: Order Comment: Speci men Type: BLOOD SPECIMEN Performed By: #### 5 8410-2 ####[facility] LABORATORYCLIA [id number] [address] MCV (RBC) [Entitic vol] 96.2 fL Normal 80.0-100.0 [facility] Comment on above: Order Comment: Speci men Type: BLOOD SPECIMEN Performed By: #### 5 8410-2 ####[facility] LABORATORYCLIA [id number] [address] Nucleated RBC (Bld) [#/Vol] 10*3/uL Normal <0.01 [facility] Comment on above: Order Comment: Speci men Type: BLOOD SPECIMEN Performed By: #### 5 8410-2 ####[facility] LABORATORYCLIA [id number] [address] Platelet mean volume (Bld) [Entitic vol] 11.6 fL Normal 9.0-12.7 [facility] Comment on above: Order Comment: Speci men Type: BLOOD SPECIMEN Performed By: #### 5 8410-2 ####[facility] LABORATORYCLIA [id number] [address] Platelets (Bld) [#/Vol] 265 10*3/uL Normal 150-400 [facility] Comment on above: Order Comment: Speci men Type: BLOOD SPECIMEN Performed By: #### 5 8410-2 ####[facility] LABORATORYCLIA [id number] [address] RBC (Bld) [#/Vol] 3.72 10*6/uL Low 4.20-6.00 [facility] Comment on above: Order Comment: Speci men Type: BLOOD SPECIMEN Performed By: #### 5 8410-2 ####[facility] LABORATORYCLIA [id number] [address] WBC (Bld) [#/Vol] 12.24 10*3/uL High 3.70-11.00 [facility] Comment on above: Order Comment: Speci men Type: BLOOD SPECIMEN Performed By: #### 5 8410-2 ####[facility] LABORATORYCLIA [id number] [address] CONSULTon 06-15-2021 CONSULT Normal [facility] [...] men Type: URINE SPECIMENOrdering Facility: [facility] Address: [address] [place] [address] Performed By: #### U TPR, 73232-8, 46303-3, 61438-1 ####[facility] LABORATORYCLIA [id number] [address] Comprehensive metabolic 2000 panelon 06-15-2021 Albumin [Mass/Vol] 2.8 g/dL Low 3.9-4.9 [facility] Comment on above: Order Comment: Speci men Type: BLOOD SPECIMENOrdering Facility: [facility] Address: [address] [place] [address] Performed By: #### 2 4323-8 ####[facility] LABORATORYCLIA [id number] [address] ALP [Catalytic activity/Vol] 74 U/L Normal 38-113 [facility] Comment on above: Order Comment: Speci men Type: BLOOD SPECIMENOrdering Facility: [facility] Address: [address] [address] Performed By: #### 2 4323-8 ####[facility] LABORATORYCLIA [id number] [address] ALT With P-5'-P [Catalytic activity/Vol] 50 U/L Normal 10-54 [facility] Comment on above: Order Comment: Speci men Type: BLOOD SPECIMENOrdering Facility: [facility] Address: [address] [place] [address] Performed By: #### 2 4323-8 ####[facility]ORATORYCLIA [id number] [place] [address] [place] Anion gap [Moles/Vol] 12 mmol/L Normal 9-18 [facility] Comment on above: Order Comment: Speci men Type: BLOOD SPECIMENOrdering Facility: [facility] Address: [address] [place] [address] Performed By: #### 2 4323-8 ####[facility] LABORATORYCLIA [id number] [place] [address] [place] AST With P-5'-P [Catalytic activity/Vol] 36 U/L Normal 14-40 [facility] Comment on above: Order Comment: Speci men Type: BLOOD SPECIMENOrdering Facility: [facility] Address: [address] [place] [address] Performed By: #### 2 4323-8 ####[facility] LABORATORYCLIA [id number] [address] [place] Bilirubin [Mass/Vol] 0.5 mg/dL Normal 0.2-1.3 [facility] Comment on above: Order Comment: Speci men Type: BLOOD SPECIMENOrdering Facility: [facility] Address: [address] [place] [address] Performed By: #### 2 4323-8 ####[facility] LABORATORYCLIA [id number] [address] [place] Calcium [Mass/Vol] 8.8 mg/dL Normal 8.5-10.2 [facility] Comment on above: Order Comment: Speci men Type: BLOOD SPECIMENOrdering Facility: [facility] Address: [address] [place] [address] Performed By: #### 2 4323-8 ####[facility] LABORATORYCLIA [id number] [place] [address] [place] Chloride [Moles/Vol] 126 mmol/L High 97-105 [facility] Comment on above: Order Comment: Speci men Type: BLOOD SPECIMENOrdering Facility: [facility] Address: [address] [place] [address] Performed By: #### 2 4323-8 ####[facility] LABORATORYCLIA [id number] [address] [place] CO2 [Moles/Vol] 24 mmol/L Normal 22-30 [facility] Comment on above: Order Comment: Speci men Type: BLOOD SPECIMENOrdering Facility: [facility] Address: [address] [place] [address] Performed By: #### 2 4323-8 ####[facility] LABORATORYCLIA [id number] [place] [address] [place] Creatinine [Mass/Vol] 0.84 mg/dL Normal 0.73-1.22 [facility] Comment on above: Order Comment: Speci men Type: BLOOD SPECIMENOrdering Facility: [facility] Address: [address] [place] [address] Performed By: #### 2 4323-8 ####[facility] LABORATORYCLIA [id number] [place] [address] [place] GFR/1.73 sq M.predicted MDRD (S/P/Bld) [Vol rate/Area] mL/min/{1.73_m2} Normal [facility] Comment on above: Order Comment: Speci men Type: BLOOD SPECIMENOrdering Facility: [facility] Address: [address] [place] [address] Result Comment: >60e GFR (Estimated GFR) Units [...] #### 2 4323-8 ####[facility] LABORATORYCLIA [id number] [place] [address] [place] Glucose [Mass/Vol] 142 mg/dL High 74-99 [facility] Comment on above: Order Comment: Shira men Type: BLOOD SPECIMENOrdering Facility: [facility] Address: [address] [place] [address] Result Comment: The [employer] [place] [employer] (ADA) provides guidance for cutoff [...] Standards of Medical Care in Diabetes 2016, [employer]. Diabetes Care. 2016.39(Suppl 1). Performed By: #### 2 4323-8 ####[facility] LABORATORYCLIA [id number] [place] [address] [place] Potassium [Moles/Vol] 3.8 mmol/L Normal 3.7-5.1 [facility] Comment on above: Order Comment: Shira feldman Type: BLOOD SPECIMENOrdering Facility: [facility] Address: [address] [place] [address] Performed By: #### 2 4323-8 ####[facility] LABORATORYCLIA [id number] [place] [address] [place] Protein [Mass/Vol] 6.1 g/dL Low 6.3-8.0 [facility] Comment on above: Order Comment: Johni men Type: BLOOD SPECIMENOrdering Facility: [facility] Address: [address] [place] [address] Performed By: #### 2 4323-8 ####[facility] LABORATORYCLIA [id number] [place] [address] [place] Sodium [Moles/Vol] 162 mmol/L High 136-144 [facility] Comment on above: Order Comment: Speci men Type: BLOOD SPECIMENOrdering Facility: [facility] Address: [address] [place] [address] Performed By: #### 2 4323-8 ####[facility] LABORATORYCLIA [id number] [place] [address] [place] Urea nitrogen [Mass/Vol] 33 mg/dL High 9-24 [facility] Comment on above: Order Comment: Speci men Type: BLOOD SPECIMENOrdering Facility: [facility] Address: [address] [place] [address] Performed By: #### 2 4323-8 ####[facility] LABORATORYCLIA [id number] [place] [address] [place] Creatinine Unsp time (U) [Ma ss/Vol]on 06-15-2021 Creatinine (U) [Mass/Vol] 87.0 mg/dL Normal 46.8-314.5 [facility] Comment on above: Order Comment: Speci men Type: URINE SPECIMENOrdering Facility: [facility] Address: [address] [place] [address] Performed By: #### U TPR, 82700-3, 26663-7, 33014-3 ####[facility] LABORATORYCLIA [id number] [place] [address] [place] HIGH SENSITIVITY TROPONIN To n 06-15-2021 HIGH SENSITIVITY TAMIKO 23 ng/L High <12 [facility] Comment on above: Order Comment: Speci men Type: BLOOD SPECIMENOrdering Facility: [facility] Address: [address] [place] [address] Result Comment: When assessing risk for acute [...] 30 day MACE. Performed By: #### P Chelo WHITAKER62-6, HSTNT ####[facility] [id number] [address] STATES OF [facility] Lactate (Bld) [Moles/Vol]on 06-15-2021 Lactate [Moles/Vol] 0.8 mmol/L Normal 0.5-2.2 [facility] Comment on above: Order Comment: Speci men Type: BLOOD SPECIMENOrdering Facility: [facility] Address: [address] [place] [address] Performed By: #### 3 2693-4 ####[facility] [id number] [address] [place] Magnesium [facility]15 Magnesium [Mass/Vol] 3.0 mg/dL High 1.7-2.3 [facility] Comment on above: Order Comment: Speci men Type: BLOOD SPECIMEN Performed By: #### 2 4321-2, 2777-1, 34658-0 ####[facility] [id number] [address] [place] NT-proBNP [facility]on [facility]-15 Natriuretic peptide.B prohormone N-Terminal [Mass/Vol] 265 pg/mL High <125 [facility] Comment on above: Order Comment: Speci men Type: BLOOD SPECIMENOrdering Facility: [facility] Address: [address] [place] [address] Performed By: #### P JULIANNE, 79981-8, HSTNT ####[facility] LABORATORYCLIA [id number] [place] [address] [place] Osmolality Uron 06-15-2021 Osmolality (U) [Osmolality] 606 mosm/kg Normal 50-1,200 [facility] Comment on above: Order Comment: Speci men Type: URINE SPECIMENOrdering Facility: [facility] Address: [address] [place] [address] Performed By: #### 2 695-5 ####[facility]ITAL[facility]IA [id number] [address] PROCALCITONIN (LAB)on 2021 Procalcitonin [Mass/Vol] 0.21 ng/mL High <0.09 [facility] Comment on above: Order Comment: Speci men Type: BLOOD SPECIMENOrdering Facility: [facility] Address: [address] [place] [address] Result Comment: For a guided interpretation of test results, please visit the Change in Procalcitonin Calculator, [email or web address]. Performed By: #### P JULIANNE, 2951-2 ####[facility] LABORATORYIA [id number] [address] Procalcitonin [Mass/Vol] 0.17 ng/mL High <0.09 [facility] Comment on above: Order Comment: Speci men Type: BLOOD SPECIMENOrdering Facility: [facility] Address: [address] [place] [address] Result Comment: For a guided interpretation of test results, please visit the Change in Procalcitonin Calculator, [email or web address]. Performed By: #### P JULIANNE, 82932-2, HSTNT ####[facility]ITALIA [id number] [address] PROTEIN RANDOM URon 06-15-19 22 Protein (U) [Mass/Vol] 175 mg/dL High 0-20 [facility] Comment on above: Order Comment: Speci men Type: URINE SPECIMENOrdering Facility: [facility] Address: [address] [place] [address] Performed By: #### U TPR, 52019-9, 98461-6, 17669-5 ####[facility] LABORATORYCLIA [id number] [address] PT panel Coag (PPP)on 2021 INR Coag (PPP) [Relative time] 1.1 {INR} Normal <1.4 [facility] Comment on above: Order Comment: Speci men Type: BLOOD SPECIMENOrdering Facility: [facility] Address: [address] [place] [address] Result Comment: Yris min K Antagonist (VKA) Therapeutic Range: INR 2 to 3 (Target INR of 2.5)Note: For patients treated with VKA drugs, such as warfarin, the [employer] 2012 Guideline recommends [...] 70: 252-289 Performed By: #### 3 4528-0, 16673-9 ####[facility] LABORATORYCLIA [id number] [place] [address] [place] PT Coag (PPP) [Time] 11.4 s Normal <13.1 [facility] Comment on above: Order Comment: Shira feldman Type: BLOOD SPECIMENOrdering Facility: [facility] Address: [address] [place], [place] [address] Performed By: #### 3 4528-0, 70578-9 ####[facility] LABORATORYCLIA [id number] [place] [address] [place] Phosphate SerPl-mCncon 06-15 Phosphate [Mass/Vol] 2.6 mg/dL Low 2.7-4.8 [facility] Comment on above: Order Comment: Shira feldman Type: BLOOD SPECIMEN Performed By: #### 2 4321-2, 2777-1, 38887-3 ####[facility] LABORATORYCLIA [id number] [address] [place] Sodium ?Tm Ur-sCncon 022 Sodium Unsp time (U) [Moles/Vol] 34 mmol/L Normal 14-216 [facility] Comment on above: Order Comment: Speci men Type: URINE SPECIMENOrdering Facility: [facility] Address: [address] [place] [address] Performed By: #### U TPR, 17601-8, 79523-2, 94494-0 ####[facility] LABORATORYCLIA [id number] [address] [place] Sodium SerPl-sCncon 06-15-19 22 Sodium [Moles/Vol] 159 mmol/L High 136-144 [facility] Comment on above: Order Comment: Speci men Type: BLOOD SPECIMENOrdering Facility: [facility] Address: [address] [place] [address] Performed By: #### P JULIANNE, 2951-2 ####[facility] LABORATORYCLIA [id number] [address] THERAPY NTon 06-15-2021 THERAPY NT Normal [facility] Urinalysis complete panel (U )on 06-15-2021 Bacteria LM.HPF (Urine sed) [#/Area] None Seen Normal None Seen [facility] Comment on above: Order Comment: Speci men Type: URINE SPECIMENOrdering Facility: [facility] Address: [address] [place] [address] Performed By: #### 2 4356-8 ####[facility] LABORATORYCLIA [id number] [address] [place] Bilirubin Ql (U) Negative Normal Negative [facility] Comment on above: Order Comment: Speci men Type: URINE SPECIMENOrdering Facility: [facility] Address: [address] [place] [address] Performed By: #### 2 4356-8 ####[facility] LABORATORYCLIA [id number] [address] [place] Clarity (Unsp spec) Cloudy Abnormal Clear [facility] Comment on above: Order Comment: Speci men Type: URINE SPECIMENOrdering Facility: [facility] Address: [address] [place] [address] Performed By: #### 2 4356-8 ####[facility] LABORATORYCLIA [id number] [address] Color (U) Yellow Normal Yellow [facility] Comment on above: Order Comment: Speci men Type: URINE SPECIMENOrdering Facility: [facility] Address: [address] [place] [address] Performed By: #### 2 4356-8 ####[facility] LABORATORYCLIA [id number] [address] Epithelial cells LM.HPF (Urine sed) [#/Area] 7.1 /[HPF] Normal [facility] Comment on above: Order Comment: Speci men Type: URINE SPECIMENOrdering Facility: [facility] Address: [address] [place] [address] Performed By: #### 2 4356-8 ####[facility] LABORATORYCLIA [id number] [address] Glucose Test strip (U) [Mass/Vol] Negative Normal Negative [facility] Comment on above: Order Comment: Speci men Type: URINE SPECIMENOrdering Facility: [facility] Address: [address] [place] [address] Performed By: #### 2 4356-8 ####[facility] LABORATORYCLIA [id number] [address] Granular casts (Urine sed) [#/Area] /[LPF] Abnormal 0 /LPF [facility] Comment on above: Order Comment: Speci men Type: URINE SPECIMENOrdering Facility: [facility] Address: [address] [place] [address] Performed By: #### 2 4356-8 ####[facility] LABORATORYCLIA [id number] [address] Hemoglobin Ql (U) Moderate Abnormal Negative [facility] Comment on above: Order Comment: Speci men Type: URINE SPECIMENOrdering Facility: [facility] Address: [address] [place] [address] Performed By: #### 2 4356-8 ####[facility] LABORATORYCLIA [id number] [address] OF [facility] Hyaline casts (Urine sed) [#/Area] /[LPF] Abnormal 0 /LPF [facility] Comment on above: Order Comment: Speci men Type: URINE SPECIMENOrdering Facility: [facility] Address: [address] [place] [address] Performed By: #### 2 4356-8 ####[facility] LABORATORYCLIA [id number] [address] Ketones Ql (U) Negative Normal Negative [facility] Comment on above: Order Comment: Speci men Type: URINE SPECIMENOrdering Facility: [facility] Address: [address] [place] [address] Performed By: #### 2 4356-8 ####[facility] LABORATORYCLIA [id number] [address] Leukocyte esterase Test strip Ql (U) Negative Normal Negative [facility] Comment on above: Order Comment: Speci men Type: URINE SPECIMENOrdering Facility: [facility] Address: [address] [place] [address] Performed By: #### 2 4356-8 ####[facility] LABORATORYCLIA [id number] [address] Nitrite Ql (U) Negative Normal Negative [facility] Comment on above: Order Comment: Speci men Type: URINE SPECIMENOrdering Facility: [facility] Address: [address] [place] [address] Performed By: #### 2 4356-8 ####[facility] LABORATORYCLIA [id number] [address] [place] pH (U) 6.0 [pH] Normal 5.0-8.0 [facility] Comment on above: Order Comment: Speci men Type: URINE SPECIMENOrdering Facility: [facility] Address: [address] [place] [address] Performed By: #### 2 4356-8 ####[facility] LABORATORYCLIA [id number] [address] Protein (U) [Mass/Vol] 100 mg/dL Abnormal Negative [facility] Comment on above: Order Comment: Speci men Type: URINE SPECIMENOrdering Facility: [facility] Address: [address] [place] [address] Performed By: #### 2 4356-8 ####[facility] LABORATORYCLIA [id number] [address] [place] RBC LM.HPF (Urine sed) [#/Area] 0-3 /HPF Normal 0-3 /HPF [facility] Comment on above: Order Comment: Speci men Type: URINE SPECIMENOrdering Facility: [facility] Address: [address] [place] [address] Performed By: #### 2 4356-8 ####[facility] LABORATORYCLIA [id number] [address] Specific gravity (U) [Rel density] 1.024 Normal 1.005-1.030 [facility] Comment on above: Order Comment: Speci men Type: URINE SPECIMENOrdering Facility: [facility] Address: [address] [place] [address] Performed By: #### 2 4356-8 ####[facility] LABORATORYCLIA [id number] [address] Urobilinogen Ql (U) 0.2 EU/dL Normal 0.2-1.0 EU/dL [facility] Comment on above: Order Comment: Speci men Type: URINE SPECIMENOrdering Facility: [facility] Address: [address] [place] [address] Performed By: #### 2 4356-8 ####[facility] LABORATORYCLIA [id number] [place] [address] [place] WBC LM.HPF (Urine sed) [#/Area] 0-5 /HPF Normal 0-5 /HPF [facility] Comment on above: Order Comment: Speci men Type: URINE SPECIMENOrdering Facility: [facility] Address: [address] [place] [address] Performed By: #### 2 4356-8 ####[facility] LABORATORYCLIA [id number] [address] [place] XR CHEST 1V FRONTALon 2021 XR CHEST 1V FRONTAL Normal [facility] XR CHEST 1V FRONTAL PORTon 0 06-15-2021 XR CHEST 1V FRONTAL PORT Normal [facility] XR CHEST 1V FRONTAL PORT Normal [facility] aPTT PPPon 06-15-2021 aPTT Coag (PPP) [Time] 30.9 s Normal 23.0-32.4 [facility] Comment on above: Order Comment: Speci men Type: BLOOD SPECIMENOrdering Facility: [facility] Address: [address] [place] [address] Performed By: #### 3 4528-0, 73170-4 ####[facility] LABORATORYCLIA [id number] [place] [address] [place] Basic metabolic 2000 panelon 06-14-2021 Anion gap [Moles/Vol] 8 mmol/L Low 9-18 [facility] Comment on above: Order Comment: Speci men Type: BLOOD SPECIMEN Performed By: #### 2 4321-2, 2776-1, ####[facility] LABORATORYCLIA [id number] [place] [address] [place] Calcium [Mass/Vol] 8.9 mg/dL Normal 8.5-10.2 [facility] Comment on above: Order Comment: Speci men Type: BLOOD SPECIMEN Performed By: #### 2 4321-2, 2777-1, ####[facility] LABORATORYCLIA [id number] [place], [place] [id number] [place] [address] [place] Chloride [Moles/Vol] 121 mmol/L High 97-105 [facility] Comment on above: Order Comment: Speci men Type: BLOOD SPECIMEN Performed By: #### 2 4321-2, 2776-05, ####[facility] LABORATORYCLIA [id number] [place] [address] [place] CO2 [Moles/Vol] 30 mmol/L Normal 22-30 [facility] Comment on above: Order Comment: Speci men Type: BLOOD SPECIMEN Performed By: #### 2 4321-2, 2776-05, ####[facility] [id number] [address] STATES OF [facility] Creatinine [Mass/Vol] 0.78 mg/dL Normal 0.73-1.22 [facility] Comment on above: Order Comment: Speci men Type: BLOOD SPECIMEN Performed By: #### 2 4321-2, 2776-05, ####[facility] LABORATORYCLIA [id number] [place] [address] [place] GFR/1.73 sq M.predicted [...] 2 4321-2, 2777, ####[facility] LABORATORYCLIA [id number] [place] [address] [place] Glucose [Mass/Vol] 132 mg/dL High 74-99 [facility] Comment on above: Order Comment: Speci men Type: BLOOD SPECIMEN Result Comment: The [employer] (ADA) provides guidance for cutoff [...] Standards of Medical Care in Diabetes 2016, [employer]. Diabetes Care. 2016.39(Suppl 1). Performed By: #### 2 4321-2, 2776-05, ####[facility] LABORATORYCLIA [id number] [address] [place] Potassium [Moles/Vol] 3.7 mmol/L Normal 3.7-5.1 [facility] Comment on above: Order Comment: Speci men Type: BLOOD SPECIMEN Performed By: #### 2 4321-2, 2776-05, ####[facility] LABORATORYCLIA [id number] [address] [place] Sodium [Moles/Vol] 159 mmol/L High 136-144 [facility] Comment on above: Order Comment: Speci men Type: BLOOD SPECIMEN Performed By: #### 2 4321-2, 2776-05, ####[facility] LABORATORYCLIA [id number] [place] [address] [place] Urea nitrogen [Mass/Vol] 35 mg/dL High 9-24 [facility] Comment on above: Order Comment: Speci men Type: BLOOD SPECIMEN Performed By: #### 2 4321-2, 2776-05, ####[facility] LABORATORYCLIA [id number] [address] CASE MANAGEMon 06-14-2021 CASE MANAGEM Normal [facility] CBC panel Auto (Bld)on 06-14 Erythrocyte distribution width (RBC) [Ratio] 16.2 % High 11.5-15.0 [facility] Comment on above: Order Comment: Speci men Type: BLOOD SPECIMEN Performed By: #### 5 8410-2 ####[facility] LABORATORYCLIA [id number] [address] Hematocrit (Bld) [Volume fraction] 35.2 % Low 39.0-51.0 [facility] Comment on above: Order Comment: Speci men Type: BLOOD SPECIMEN Performed By: #### 5 8410-2 ####[facility] LABORATORYCLIA [id number] [address] Hemoglobin (Bld) [Mass/Vol] 10.1 g/dL Low 13.0-17.0 [facility] Comment on above: Order Comment: Speci men Type: BLOOD SPECIMEN Performed By: #### 5 8410-2 ####[facility] LABORATORYCLIA [id number] [address] MCH (RBC) [Entitic mass] 27.2 pg Normal 26.0-34.0 [facility] Comment on above: Order Comment: Speci men Type: BLOOD SPECIMEN Performed By: #### 5 8410-2 ####[facility] LABORATORYCLIA [id number] [address] MCHC (RBC) [Mass/Vol] 28.7 g/dL Low 30.5-36.0 [facility] Comment on above: Order Comment: Speci men Type: BLOOD SPECIMEN Performed By: #### 5 8410-2 ####[facility] LABORATORYCLIA [id number] [address] MCV (RBC) [Entitic vol] 94.6 fL Normal 80.0-100.0 [facility] Comment on above: Order Comment: Speci men Type: BLOOD SPECIMEN Performed By: #### 5 8410-2 ####[facility] LABORATORYCLIA [id number] [address] Nucleated RBC (Bld) [#/Vol] 10*3/uL Normal <0.01 [facility] Comment on above: Order Comment: Speci men Type: BLOOD SPECIMEN Performed By: #### 5 8410-2 ####[facility] LABORATORYCLIA [id number] [address] Platelet mean volume (Bld) [Entitic vol] 11.0 fL Normal 9.0-12.7 [facility] Comment on above: Order Comment: Speci men Type: BLOOD SPECIMEN Performed By: #### 5 8410-2 ####[facility] LABORATORYCLIA [id number] [address] Platelets (Bld) [#/Vol] 287 10*3/uL Normal 150-400 [facility] Comment on above: Order Comment: Speci men Type: BLOOD SPECIMEN Performed By: #### 5 8410-2 ####[facility] LABORATORYCLIA [id number] [address] RBC (Bld) [#/Vol] 3.72 10*6/uL Low 4.20-6.00 [facility] Comment on above: Order Comment: Speci men Type: BLOOD SPECIMEN Performed By: #### 5 8410-2 ####[facility] LABORATORYCLIA [id number] [address] WBC (Bld) [#/Vol] 12.23 10*3/uL High 3.70-11.00 [facility] Comment on above: Order Comment: Speci men Type: BLOOD SPECIMEN Performed By: #### 5 8410-2 ####[facility] LABORATORYCLIA [id number] [address] Comprehensive metabolic 2000 panelon 06-14-2021 Albumin [Mass/Vol] 3.1 g/dL Low 3.9-4.9 [facility] Comment on above: Order Comment: Speci men Type: BLOOD SPECIMEN Performed By: #### 2 4323-8, HSTNT, 2776-05, ####[facility]ORATORYCLIA [id number] [place], [place] [id number] [place] [address] ALP [Catalytic activity/Vol] 72 U/L Normal 38-113 [facility] Comment on above: Order Comment: Speci men Type: BLOOD SPECIMEN Performed By: #### 2 4323-8, HSTNT, 2776-05, ####[facility] LABORATORYCLIA [id number] [address] ALT With P-5'-P [Catalytic activity/Vol] 57 U/L High 10-54 [facility] Comment on above: Order Comment: Speci men Type: BLOOD SPECIMEN Performed By: #### 2 4323-8, HSTNT, 2776-05, ####[facility]ORATORYCLIA [id number] [address] Anion gap [Moles/Vol] 9 mmol/L Normal 9-18 [facility] Comment on above: Order Comment: Speci men Type: BLOOD SPECIMEN Performed By: #### 2 4323-8, HSTNT, 2776-05, ####[facility] LABORATORYCLIA [id number] [place], [place] [id number] [place] [address] AST With P-5'-P [Catalytic activity/Vol] 33 U/L Normal 14-40 [facility] Comment on above: Order Comment: Speci men Type: BLOOD SPECIMEN Performed By: #### 2 4323-8, HSTNT, 2776-05, ####[facility]ORATORYCLIA [id number] [address] Bilirubin [Mass/Vol] 0.5 mg/dL Normal 0.2-1.3 [facility] Comment on above: Order Comment: Speci men Type: BLOOD SPECIMEN Performed By: #### 2 4323-8, HSTNT, 2776-05, ####[facility]ATORYCLIA [id number] [place] [address] [place] Calcium [Mass/Vol] 8.8 mg/dL Normal 8.5-10.2 [facility] Comment on above: Order Comment: Speci men Type: BLOOD SPECIMEN Performed By: #### 2 4323-8, HSTNT, 2776-05, ####[facility]ATORYCLIA [id number] [address] [place] Chloride [Moles/Vol] 124 mmol/L High 97-105 [facility] Comment on above: Order Comment: Speci men Type: BLOOD SPECIMEN Performed By: #### 2 4323-8, HSTNT, 2776-05, ####[facility]ATORYCLIA [id number] [address] [place] CO2 [Moles/Vol] 29 mmol/L Normal 22-30 [facility] Comment on above: Order Comment: Speci men Type: BLOOD SPECIMEN Performed By: #### 2 4323-8, HSTNT, 2776-05, ####[facility]ORYCLIA [id number] [address] [place] Creatinine [Mass/Vol] 0.73 mg/dL Normal 0.73-1.22 [facility] Comment on above: Order Comment: Speci men Type: BLOOD SPECIMEN Performed By: #### 2 4323-8, HSTNT, 2776-05, ####[facility]ATORYCLIA [id number] [place] [address] [place] GFR/1.73 sq M.predicted [...] GFR. Performed By: #### 2 4323-8, HSTNT, ####[facility]ATORYCLIA [id number] [place] [address] [place] Glucose [Mass/Vol] 137 mg/dL High 74-99 [facility] Comment on above: Order Comment: Speci men Type: BLOOD SPECIMEN Result Comment: The [employer] [place] [employer] (ADA) provides guidance for cutoff [...] Standards of Medical Care in Diabetes 2016, [employer] [place] [employer]. Diabetes Care. 2016.39(Suppl 1). Performed By: #### 2 4323-8, HSTNT, ####[facility]ATORYCLIA [id number] [place] [address] [place] Potassium [Moles/Vol] 3.6 mmol/L Low 3.7-5.1 [facility] Comment on above: Order Comment: Speci men Type: BLOOD SPECIMEN Performed By: #### 2 4323-8, HSTNT, ####[facility]ATORYCLIA [id number] [place] [address] [place] Protein [Mass/Vol] 5.9 g/dL Low 6.3-8.0 [facility] Comment on above: Order Comment: Speci men Type: BLOOD SPECIMEN Performed By: #### 2 4323-8, HSTNT, 2776-05, ####[facility]ATORYCLIA [id number] [place], [place] [id number] [place] [address] Sodium [Moles/Vol] 162 mmol/L High 136-144 [facility] Comment on above: Order Comment: Speci men Type: BLOOD SPECIMEN Performed By: #### 2 4323-8, HSTNT, 2776-05, ####[facility]ATORYCLIA [id number] [address] Urea nitrogen [Mass/Vol] 33 mg/dL High 9-24 [facility] Comment on above: Order Comment: Speci men Type: BLOOD SPECIMEN Performed By: #### 2 4323-8, HSTNT, 2776-05, ####[facility]ATORYCLIA [id number] [address] HIGH SENSITIVITY TROPONIN To n 06-14-2021 HIGH SENSITIVITY TAMIKO 22 ng/L High <12 [facility] Comment on [...] #### H STNT ####[facility]ATORYCLIA [id number] [address] HIGH SENSITIVITY TAMIKO 22 ng/L High <12 [facility] Comment on [...] Performed By: #### 2 4323-8, HSTNT, 2776-05, ####[facility]ATORYCLIA [id number] [address] Magnesium SerPl-mCncon 06-14 Magnesium [Mass/Vol] 2.9 mg/dL High 1.7-2.3 [facility] Comment on above: Order Comment: Speci men Type: BLOOD SPECIMEN Performed By: #### 2 4323-8, HSTNT, 2776-05, ####[facility]ATORYCLIA [id number] [address] Magnesium [Mass/Vol] 3.0 mg/dL High 1.7-2.3 [facility] Comment on above: Order Comment: Speci men Type: BLOOD SPECIMEN Performed By: #### 2 4321-2, 2776-05, ####[facility]ATORYCLIA [id number] [address] NURSING PROGon 06-14-2021 NURSING PROG Normal [facility] NUTRITIONon 06-14-2021 NUTRITION Normal [facility] Phosphate SerPl-mCncon 06-14 Phosphate [Mass/Vol] 2.4 mg/dL Low 2.7-4.8 [facility] Comment on above: Order Comment: Speci men Type: BLOOD SPECIMEN Performed By: #### 2 4323-8, HSTNT, 2776-05, ####[facility]ORYCLIA [id number] [address] Phosphate [Mass/Vol] 3.2 mg/dL Normal 2.7-4.8 [facility] Comment on above: Order Comment: Speci men Type: BLOOD SPECIMEN Performed By: #### 2 4321-2, 2776-05, ####[facility]ATORYCLIA [id number] [place] [address] [place] THERAPY NTon 06-14-2021 THERAPY NT Normal [facility] [...] 4321-2, , 2776-05 ####[facility]ATORYCLIA [id number] [place] [address] [place] Calcium [Mass/Vol] 8.8 mg/dL Normal 8.5-10.2 [facility] Comment on above: Order Comment: Speci men Type: BLOOD SPECIMEN Performed By: #### 2 4321-2, , 2776-05 ####[facility]ATORYCLIA [id number] [place] [address] [place] Chloride [Moles/Vol] 120 mmol/L High 97-105 [facility] Comment on above: Order Comment: Speci men Type: BLOOD SPECIMEN Performed By: #### 2 4321-2, , 2776-05 ####[facility]ATORYCLIA [id number] [place] [address] [place] CO2 [Moles/Vol] 28 mmol/L Normal 22-30 [facility] Comment on above: Order Comment: Speci men Type: BLOOD SPECIMEN Performed By: #### 2 4321-2, , 2776-05 ####[facility]ATORYCLIA [id number] [place] [address] [place] Creatinine [Mass/Vol] 0.78 mg/dL Normal 0.73-1.22 [facility] Comment on above: Order Comment: Speci men Type: BLOOD SPECIMEN Performed By: #### 2 4321-2, 73340-5, 2776-05 ####[facility]ATORYCLIA [id number] [place] [address] [place] GFR/1.73 sq M.predicted [...] 2 4321-2, , 2776-05 ####[facility]ITALIA [id number] [place] [address] [place] Glucose [Mass/Vol] 126 mg/dL High 74-99 [facility] Comment on above: Order Comment: Shira feldman Type: BLOOD SPECIMEN Result Comment: The [place] [employer] (ADA) provides guidance for cutoff [...] Standards of Medical Care in Diabetes 2016, [employer] [place] [employer]. Diabetes Care. 2016.39(Suppl 1). Performed By: #### 2 4321-2, 20432-6, 2776- ####[facility]ATORYCLIA [id number] [place] [address] [place] Potassium [Moles/Vol] 3.6 mmol/L Low 3.7-5.1 [facility] Comment on above: Order Comment: Speci men Type: BLOOD SPECIMEN Performed By: #### 2 4321-2, , 2776-05 ####[facility]ATORYCLIA [id number] [place] [address] [place] Sodium [Moles/Vol] 155 mmol/L High 136-144 [facility] Comment on above: Order Comment: Speci men Type: BLOOD SPECIMEN Performed By: #### 2 4321-2, , 2776-05 ####[facility]ATORYCLIA [id number] [place] [address] [place] Urea nitrogen [Mass/Vol] 36 mg/dL High 9-24 [facility] Comment on above: Order Comment: Speci men Type: BLOOD SPECIMEN Performed By: #### 2 4321-2, , 2776-05 ####[facility]ORYCLIA [id number] [place], [place] [address] [place] [address] [place] Anion gap [Moles/Vol] 6 mmol/L Low 9-18 [facility] Comment on above: Order Comment: Speci men Type: BLOOD SPECIMEN Performed By: #### 2 4321-2, 2776-05, ####[facility]ORYCLIA [id number] [place] [address] [place] Calcium [Mass/Vol] 6.5 mg/dL Low 8.5-10.2 [facility] Comment on above: Order Comment: Speci men Type: BLOOD SPECIMEN Performed By: #### 2 4321-2, 2776-05, ####[facility]ATORYCLIA [id number] [place] [address] [place] Chloride [Moles/Vol] 124 mmol/L High 97-105 [facility] Comment on above: Order Comment: Speci men Type: BLOOD SPECIMEN Performed By: #### 2 4321-2, 2776-05, ####[facility]ATORYCLIA [id number] [place], [place] [address] [place] [address] [place] CO2 [Moles/Vol] 24 mmol/L Normal 22-30 [facility] Comment on above: Order Comment: Speci men Type: BLOOD SPECIMEN Performed By: #### 2 4321-2, 2776-05, ####[facility]ATORYCLIA [id number] [address] [place] Creatinine [Mass/Vol] 0.61 mg/dL Low 0.73-1.22 [facility] Comment on above: Order Comment: Speci men Type: BLOOD SPECIMEN Performed By: #### 2 4321-2, 2776-05, ####[facility]ATORYCLIA [id number] [address] [place] GFR/1.73 sq M.predicted [...] 2 4321-2, 2776-05, ####[facility]ATORYCLIA [id number] [place] [address] [place] Glucose [Mass/Vol] 100 mg/dL High 74-99 [facility] Comment on above: Order Comment: Speci men Type: BLOOD SPECIMEN Result Comment: The [place] [employer] (ADA) provides guidance for cutoff [...] Standards of Medical Care in Diabetes 2016, [employer] [place] [employer]. Diabetes Care. 2016.39(Suppl 1). Performed By: #### 2 4321-2, 2776-05, ####[facility]ATORYCLIA [id number] [address] [place] [facility] Potassium [Moles/Vol] 2.7 mmol/L Low 3.7-5.1 [facility] Comment on above: Order Comment: Speci men Type: BLOOD SPECIMEN Performed By: #### 2 4321-2, 2776-05, ####[facility]ATORYCLIA [id number] [address] [place] [facility] Sodium [Moles/Vol] 154 mmol/L High 136-144 [facility] Comment on above: Order Comment: Speci men Type: BLOOD SPECIMEN Performed By: #### 2 4321-2, 2776-05, ####[facility]ATORYCLIA [id number] [address] [place] Urea nitrogen [Mass/Vol] 29 mg/dL High 9-24 [facility] Comment on above: Order Comment: Speci men Type: BLOOD SPECIMEN Performed By: #### 2 4321-2, 2776-05, ####[facility]ATORYCLIA [id number] [address] [place] CASE MANAGEMon 06-13-2021 CASE MANAGEM Normal [facility] CBC panel Auto (Bld)on 06-13 Erythrocyte distribution width (RBC) [Ratio] 15.9 % High 11.5-15.0 [facility] Comment on above: Order Comment: Speci men Type: BLOOD SPECIMEN Performed By: #### 5 8410-2 ####[facility]ATORYCLIA [id number] [address] Hematocrit (Bld) [Volume fraction] 34.3 % Low 39.0-51.0 [facility] Comment on above: Order Comment: Speci men Type: BLOOD SPECIMEN Performed By: #### 5 8410-2 ####[facility]ATORYCLIA [id number] [address] Hemoglobin (Bld) [Mass/Vol] 9.9 g/dL Low 13.0-17.0 [facility] Comment on above: Order Comment: Speci men Type: BLOOD SPECIMEN Performed By: #### 5 8410-2 ####[facility]ATORYCLIA [id number] [address] MCH (RBC) [Entitic mass] 27.3 pg Normal 26.0-34.0 [facility] Comment on above: Order Comment: Speci men Type: BLOOD SPECIMEN Performed By: #### 5 8410-2 ####[facility]ATORYCLIA [id number] [address] MCHC (RBC) [Mass/Vol] 28.9 g/dL Low 30.5-36.0 [facility] Comment on above: Order Comment: Speci men Type: BLOOD SPECIMEN Performed By: #### 5 8410-2 ####[facility]ORYCLIA [id number] [address] MCV (RBC) [Entitic vol] 94.5 fL Normal 80.0-100.0 [facility] Comment on above: Order Comment: Speci men Type: BLOOD SPECIMEN Performed By: #### 5 8410-2 ####[facility]ATORYCLIA [id number] [address] Nucleated RBC (Bld) [#/Vol] 10*3/uL Normal <0.01 [facility] Comment on above: Order Comment: Speci men Type: BLOOD SPECIMEN Performed By: #### 5 8410-2 ####[facility]ATORYCLIA [id number] [address] Platelet mean volume (Bld) [Entitic vol] 11.3 fL Normal 9.0-12.7 [facility] Comment on above: Order Comment: Speci men Type: BLOOD SPECIMEN Performed By: #### 5 8410-2 ####[facility]ATORYCLIA [id number] [address] [place] [facility] Platelets (Bld) [#/Vol] 269 10*3/uL Normal 150-400 [facility] Comment on above: Order Comment: Speci men Type: BLOOD SPECIMEN Performed By: #### 5 8410-2 ####[facility]ATORYCLIA [id number] [address] [place] [facility] RBC (Bld) [#/Vol] 3.63 10*6/uL Low 4.20-6.00 [facility] Comment on above: Order Comment: Speci men Type: BLOOD SPECIMEN Performed By: #### 5 8410-2 ####[facility]ATORYCLIA [id number] [address] [place] [facility] WBC (Bld) [#/Vol] 12.77 10*3/uL High 3.70-11.00 [facility] Comment on above: Order Comment: Speci men Type: BLOOD SPECIMEN Performed By: #### 5 8410-2 ####[facility]ATORYCLIA [id number] [address] Gas and Carbon monoxide pane l (BldV)on 06-13-2021 Base excess Calc (BldV) [Moles/Vol] 5.7 mmol/L High 0-2 [facility] Comment on above: Order Comment: Speci men Type: VENOUS BLOOD SPECIMEN Performed By: #### 2 4344-4 ####[facility]ATORYCLIA [id number] [address] Body temperature 99.5 [degF] Normal [facility] Comment on above: Order Comment: Speci men Type: VENOUS BLOOD SPECIMEN Performed By: #### 2 4344-4 ####[facility]ATORYCLIA [id number] [address] CALCIUM IONIZED, PH CORRECTED 1.24 mmol/L Normal 1.08-1.30 [facility] Comment on above: Order Comment: Speci men Type: VENOUS BLOOD SPECIMEN Performed By: #### 2 4344-4 ####[facility]ATORYCLIA [id number] [address] Calcium.ionized (BldV) [Mass/Vol] 1.23 mmol/L Normal 1.08-1.30 [facility] Comment on above: Order Comment: Speci men Type: VENOUS BLOOD SPECIMEN Performed By: #### 2 4344-4 ####[facility]ATORYCLIA [id number] [address] Carboxyhemoglobin (BldV) [Mass fraction] 1.2 % Normal 0.0-2.0 [facility] Comment on above: Order Comment: Speci men Type: VENOUS BLOOD SPECIMEN Result Comment: Carb oxyhemoglobin Reference Range for Smokers: 2.0-8.0% Performed By: #### 2 4344-4 ####[facility]ATORYCLIA [id number] [address] CO2 (BldV) [Partial pressure] 48 mm[Hg] Normal 42-55 [facility] Comment on above: Order Comment: Speci men Type: VENOUS BLOOD SPECIMEN Performed By: #### 2 4344-4 ####[facility]ORYCLIA [id number] [address] CO2 [Moles/Vol] 28.2 mmol/L Normal 25-29 [facility] Comment on above: Order Comment: Speci men Type: VENOUS BLOOD SPECIMEN Performed By: #### 2 4344-4 ####[facility]ATORYCLIA [id number] [address] CO2 adjusted to patient's actual temperature (BldV) [Partial pressure] 49 mmHg Normal 42-55 [facility] Comment on above: Order Comment: Speci men Type: VENOUS BLOOD SPECIMEN Performed By: #### 2 4344-4 ####[facility]ORYCLIA [id number] [address] Glucose [Mass/Vol] 131 mg/dL High 60-105 [facility] Comment on above: Order Comment: Speci men Type: VENOUS BLOOD SPECIMEN Performed By: #### 2 4344-4 ####[facility]ATORYCLIA [id number] [address] HCO3 (Bld) [Moles/Vol] 30.6 mmol/L High 24-28 [facility] Comment on above: Order Comment: Speci men Type: VENOUS BLOOD SPECIMEN Performed By: #### 2 4344-4 ####[facility]ATORYCLIA [id number] [address] [place] Hematocrit (Bld) [Volume fraction] 32.8 % Low 39.0-51.0 [facility] Comment on above: Order Comment: Speci men Type: VENOUS BLOOD SPECIMEN Performed By: #### 2 4344-4 ####[facility]ORYCLIA [id number] [address] [place] Hemoglobin (Bld) [Mass/Vol] 10.6 g/dL Low 13.0-17.0 [facility] Comment on above: Order Comment: Speci men Type: VENOUS BLOOD SPECIMEN Performed By: #### 2 4344-4 ####[facility]ATORYCLIA [id number] [address] [place] LITERS 6 Liters/min Normal [facility] Comment on above: Order Comment: Speci men Type: VENOUS BLOOD SPECIMEN Performed By: #### 2 4344-4 ####[facility]ATORYCLIA [id number] [place] [address] [facility] [place] Methemoglobin (Bld) [Mass fraction] 1.0 % Normal 0.0-1.5 [facility] Comment on above: Order Comment: Speci men Type: VENOUS BLOOD SPECIMEN Performed By: #### 2 4344-4 ####[facility]ORYCLIA [id number] [place] [address] [facility] O2 THERAPY NC = Nasal Cannula Normal [facility] Comment on above: Order Comment: Speci men Type: VENOUS BLOOD SPECIMEN Performed By: #### 2 4344-4 ####[facility]ATORYCLIA [id number] [place], [place] [address] [place] [address] [place] Oxygen (BldV) [Partial pressure] 42 mm[Hg] Normal 35-45 [facility] Comment on above: Order Comment: Speci men Type: VENOUS BLOOD SPECIMEN Performed By: #### 2 4344-4 ####[facility]ATORYCLIA [id number] [place], [place] [address] [place] [address] Oxygen adjusted to patient's actual temperature (BldV) [Partial pressure] 43.8 mmHg Normal 35-45 [facility] Comment on above: Order Comment: Speci men Type: VENOUS BLOOD SPECIMEN Performed By: #### 2 4344-4 ####[facility]ORYCLIA [id number] [place], [place] [address] [place] [address] [place] Oxygen saturation in Blood 76.7 % Normal 60-85 [facility] Comment on above: Order Comment: Speci men Type: VENOUS BLOOD SPECIMEN Performed By: #### 2 4344-4 ####[facility]ORYCLIA [id number] [place], [place] [address] [place] [address] [place] Oxyhemoglobin (BldV) [Mass fraction] 75 % Normal 60-85 [facility] Comment on above: Order Comment: Speci men Type: VENOUS BLOOD SPECIMEN Performed By: #### 2 4344-4 ####[facility]ATORYCLIA [id number] [place], [place] [address] [place] [address] [place] pH (BldV) 7.42 [pH] Normal 7.32-7.42 [facility] Comment on above: Order Comment: Speci men Type: VENOUS BLOOD SPECIMEN Performed By: #### 2 4344-4 ####[facility]ORYCLIA [id number] [address] pH adjusted to patient's actual temperature (BldV) 7.41 Normal 7.32-7.42 [facility] Comment on above: Order Comment: Speci men Type: VENOUS BLOOD SPECIMEN Performed By: #### 2 4344-4 ####[facility]ORYCLIA [id number] [address] Potassium [Moles/Vol] 3.5 mmol/L Normal 3.5-5.0 [facility] Comment on above: Order Comment: Speci men Type: VENOUS BLOOD SPECIMEN Performed By: #### 2 4344-4 ####[facility]ORYCLIA [id number] [address] Sodium [Moles/Vol] 157 mmol/L High 136-144 [facility] Comment on above: Order Comment: Speci men Type: VENOUS BLOOD SPECIMEN Performed By: #### 2 4344-4 ####[facility]ORYCLIA [id number] [address] Magnesium SerPl-mCncon 06-13 Magnesium [Mass/Vol] 3.0 mg/dL High 1.7-2.3 [facility] Comment on above: Order Comment: Speci men Type: BLOOD SPECIMEN Performed By: #### 2 4321-2, , 2776-05 ####[facility]ORYCLIA [id number] [address] Magnesium [Mass/Vol] 2.2 mg/dL Normal 1.7-2.3 [facility] Comment on above: Order Comment: Speci men Type: BLOOD SPECIMEN Performed By: #### 2 4321-2, 2776-, ####[facility]ORYCLIA [id number] [place] [address] [place] Phosphate SerPl-mCncon 06-13 Phosphate [Mass/Vol] 2.2 mg/dL Low 2.7-4.8 [facility] Comment on above: Order Comment: Speci men Type: BLOOD SPECIMEN Performed By: #### 2 4321-2, , 2776-05 ####[facility]ATORYCLIA [id number] [address] [place] [facility] Phosphate [Mass/Vol] 1.8 mg/dL Low 2.7-4.8 [facility] Comment on above: Order Comment: Speci men Type: BLOOD SPECIMEN Performed By: #### 2 4321-2, 2776-05, ####[facility]ATORYCLIA [id number] [address] [place] [facility] XR CHEST 1V FRONTALon 2021 XR [...] #### 6 11-4 ####[facility]ATORYCLIA [id number] [address] [place] Basic metabolic 2000 panelon 06-12-2021 Anion gap [Moles/Vol] 6 mmol/L Low 9-18 [facility] Comment on above: Order Comment: Speci men Type: BLOOD SPECIMEN Performed By: #### 2 777-1, 37298-5, ####[facility]ATORYCLIA [id number] [address] [place] Calcium [Mass/Vol] 8.7 mg/dL Normal 8.5-10.2 [facility] Comment on above: Order Comment: Speci men Type: BLOOD SPECIMEN Performed By: #### 2 777-1, 81060-1, ####[facility]ATORYCLIA [id number] [address] Chloride [Moles/Vol] 118 mmol/L High 97-105 [facility] Comment on above: Order Comment: Speci men Type: BLOOD SPECIMEN Performed By: #### 2 777-1, 91411-8, ####[facility]ATORYCLIA [id number] [address] CO2 [Moles/Vol] 28 mmol/L Normal 22-30 [facility] Comment on above: Order Comment: Speci men Type: BLOOD SPECIMEN Performed By: #### 2 777-1, , ####[facility]ATORYCLIA [id number] [address] STATES [facility] Creatinine [Mass/Vol] 0.77 mg/dL Normal 0.73-1.22 [facility] Comment on above: Order Comment: Speci men Type: BLOOD SPECIMEN Performed By: #### 2 777-1, , ####[facility]ATORYCLIA [id number] [address] GFR/1.73 sq M.predicted MDRD (S/P/Bld) [...] actual GFR. Performed By: #### 2 777-1, 45877-1, ####[facility]ATORYCLIA [id number] [place] [address] [place] Glucose [Mass/Vol] 116 mg/dL High 74-99 [facility] Comment on above: Order Comment: Speci men Type: BLOOD SPECIMEN Result Comment: The [place] [employer] (ADA) provides guidance for cutoff [...] Standards of Medical Care in Diabetes 2016, [employer] [place] [employer]. Diabetes Care. 2016.39(Suppl 1). Performed By: #### 2 777-1, , ####[facility]ATORYCLIA [id number] [place] [address] [place] Potassium [Moles/Vol] 4.0 mmol/L Normal 3.7-5.1 [facility] Comment on above: Order Comment: Speci men Type: BLOOD SPECIMEN Performed By: #### 2 777-1, , ####[facility]ATORYCLIA [id number] [place] [address] [place] Sodium [Moles/Vol] 152 mmol/L High 136-144 [facility] Comment on above: Order Comment: Speci men Type: BLOOD SPECIMEN Performed By: #### 2 777-1, , ####[facility]ATORYCLIA [id number] [place] [address] [place] Urea nitrogen [Mass/Vol] 34 mg/dL High 9-24 [facility] Comment on above: Order Comment: Speci men Type: BLOOD SPECIMEN Performed By: #### 2 777-1, 47202-1, 28733-2 ####[facility]ATORYCLIA [id number] [address] CBC panel Auto (Bld)on 06-12 Erythrocyte distribution width (RBC) [Ratio] 16.1 % High 11.5-15.0 [facility] Comment on above: Order Comment: Speci men Type: BLOOD SPECIMEN Performed By: #### 5 8410-2 ####[facility]ORATORYCLIA [id number] [address] Hematocrit (Bld) [Volume fraction] 32.8 % Low 39.0-51.0 [facility] Comment on above: Order Comment: Speci men Type: BLOOD SPECIMEN Performed By: #### 5 8410-2 ####[facility]ATORYCLIA [id number] [address] Hemoglobin (Bld) [Mass/Vol] 9.9 g/dL Low 13.0-17.0 [facility] Comment on above: Order Comment: Speci men Type: BLOOD SPECIMEN Performed By: #### 5 8410-2 ####[facility] LABORATORYCLIA [id number] [address] MCH (RBC) [Entitic mass] 28.4 pg Normal 26.0-34.0 [facility] Comment on above: Order Comment: Speci men Type: BLOOD SPECIMEN Performed By: #### 5 8410-2 ####[facility]ATORYCLIA [id number] [address] MCHC (RBC) [Mass/Vol] 30.2 g/dL Low 30.5-36.0 [facility] Comment on above: Order Comment: Speci men Type: BLOOD SPECIMEN Performed By: #### 5 8410-2 ####[facility]ATORYCLIA [id number] [address] MCV (RBC) [Entitic vol] 94.3 fL Normal 80.0-100.0 [facility] Comment on above: Order Comment: Speci men Type: BLOOD SPECIMEN Performed By: #### 5 8410-2 ####[facility]ORATORYCLIA [id number] [address] Nucleated RBC (Bld) [#/Vol] 10*3/uL Normal <0.01 [facility] Comment on above: Order Comment: Speci men Type: BLOOD SPECIMEN Performed By: #### 5 8410-2 ####[facility]ORATORYCLIA [id number] [address] Platelet mean volume (Bld) [Entitic vol] 11.2 fL Normal 9.0-12.7 [facility] Comment on above: Order Comment: Speci men Type: BLOOD SPECIMEN Performed By: #### 5 8410-2 ####[facility]ORATORYCLIA [id number] [address] Platelets (Bld) [#/Vol] 218 10*3/uL Normal 150-400 [facility] Comment on above: Order Comment: Speci men Type: BLOOD SPECIMEN Performed By: #### 5 8410-2 ####[facility]ATORYCLIA [id number] [address] RBC (Bld) [#/Vol] 3.48 10*6/uL Low 4.20-6.00 [facility] Comment on above: Order Comment: Speci men Type: BLOOD SPECIMEN Performed By: #### 5 8410-2 ####[facility]ORATORYCLIA [id number] [address] [facility] WBC (Bld) [#/Vol] 13.33 10*3/uL High 3.70-11.00 [facility] Comment on above: Order Comment: Speci men Type: BLOOD SPECIMEN Performed By: #### 5 8410-2 ####[facility]ORATORYCLIA [id number] [address] [facility] CONSULT PROGon 06-12-2021 CONSULT PROG Normal [facility] CT DRN PLACE PERIT/RETROP [place] BIon 06-12-[address] PERIT/RETROP FL BI Normal [facility] HISTORY PHYSICALon 2 HISTORY PHYSICAL Normal [facility] Magnesium SerPl-mCncon 06-12 Magnesium [Mass/Vol] 2.7 mg/dL High 1.7-2.3 [facility] Comment on above: Order Comment: Speci men Type: BLOOD SPECIMEN Performed By: #### 2 777-1, 85774-7, 17543-8 ####[facility]ORATORYCLIA [id number] [place] [address] [place] PT panel Coag (PPP)on 2021 INR Coag (PPP) [Relative time] 1.1 {INR} Normal 0.9-1.3 [facility] Comment on above: Order Comment: Speci men Type: BLOOD SPECIMEN Result Comment: Yris min K Antagonist (VKA) Therapeutic Range: INR 2 to 3 (Target INR of 2.5)Note: For patients treated with VKA drugs, such as warfarin, the [employer] 2012 Guideline recommends [...] #### 3 4528-0 ####[facility]ORATORYCLIA [id number] [place] [address] [place] PT Coag (PPP) [Time] 11.9 s Normal 9.7-13.0 [facility] Comment on above: Order Comment: Speci men Type: BLOOD SPECIMEN Performed By: #### 3 4528-0 ####[facility]ORATORYCLIA [id number] [address] Phosphate SerPl-mCncon 06-12 Phosphate [Mass/Vol] 2.2 mg/dL Low 2.7-4.8 [facility] Comment on above: Order Comment: Speci men Type: BLOOD SPECIMEN Performed By: #### 2 777-1, 96406-8, 74925-3 ####[facility]ORATORYCLIA [id number] [address] [facility] XR ABDOMEN 1V SUPINEon 06-12 XR ABDOMEN 1V SUPINE Normal [facility] ALLIED HEALTHon 06-11-2021 ALLIED HEALTH Normal [facility] Bacteria Bld Culton 06-11-19 22 Bacteria identified Cx Nom (Bld) CULTURE, BLOOD: No growth 5 days Normal [facility] Comment on above: Performed By: #### 6 00-7 ####[facility]ORATORYCLIA [id number] [address] Bacteria identified Cx Nom (Bld) CULTURE, BLOOD: No growth 5 days Normal [facility] Comment on above: Performed By: #### 6 00-7 ####[facility]ORATORYCLIA [id number] [address] Bacteria Ur Culton 2 Bacteria identified Cx Nom (U) CULTURE, URINE: No growth (<1,000 CFU/ml) [facility] Comment on above: Performed By: #### 6 30-4 ####[facility]ORATORYCLIA [id number] [address] Basic metabolic 2000 panelon 06-11-2021 Anion gap [Moles/Vol] 9 mmol/L Normal 9-18 [facility] Comment on above: Order Comment: Speci men Type: BLOOD SPECIMEN Performed By: #### 1 9123-9, 2777-1, 75163-3 ####[facility]ORATORYCLIA [id number] [address] STATES [facility] Calcium [Mass/Vol] 8.5 mg/dL Normal 8.5-10.2 [facility] Comment on above: Order Comment: Speci men Type: BLOOD SPECIMEN Performed By: #### 1 9123-9, 2777-1, 15891-7 ####[facility]ATORYCLIA [id number] [address] [place] Chloride [Moles/Vol] 118 mmol/L High 97-105 [facility] Comment on above: Order Comment: Speci men Type: BLOOD SPECIMEN Performed By: #### 1 9123-9, 277-, 54783-1 ####[facility]ATORYCLIA [id number] [address] CO2 [Moles/Vol] 27 mmol/L Normal 22-30 [facility] Comment on above: Order Comment: Speci men Type: BLOOD SPECIMEN Performed By: #### 1 9123-9, 2777-1, 97025-1 ####[facility]ORATORYCLIA [id number] [address] STATES [facility] Creatinine [Mass/Vol] 0.75 mg/dL Normal 0.73-1.22 [facility] Comment on above: Order Comment: Speci men Type: BLOOD SPECIMEN Performed By: #### 1 9123-9, 2777-1, 67710-7 ####[facility]ORATORYCLIA [id number] [address] [place] GFR/1.73 sq M.predicted [...] actual GFR. Performed By: #### 1 9123-9, 7-, 37701-0 ####[facility]ORATORYCLIA [id number] [address] [place] Glucose [Mass/Vol] 142 mg/dL High 74-99 [facility] Comment on above: Order Comment: Speci men Type: BLOOD SPECIMEN Result Comment: The [employer] (ADA) provides guidance for cutoff [...] Standards of Medical Care in Diabetes 2016, [employer]. Diabetes Care. 2016.39(Suppl 1). Performed By: #### 1 9123-9, 2776-05, 47331-0 ####[facility]ORATORYCLIA [id number] [place] [address] [place] Potassium [Moles/Vol] 3.6 mmol/L Low 3.7-5.1 [facility] Comment on above: Order Comment: Speci men Type: BLOOD SPECIMEN Performed By: #### 1 9123-9, 27711-04, 34331-1 ####[facility]ORATORYCLIA [id number] [address] [place] Sodium [Moles/Vol] 154 mmol/L High 136-144 [facility] Comment on above: Order Comment: Speci men Type: BLOOD SPECIMEN Performed By: #### 1 9123-9, 27711-04, 11480-5 ####[facility]ORATORYCLIA [id number] [address] Urea nitrogen [Mass/Vol] 31 mg/dL High 9-24 [facility] Comment on above: Order Comment: Speci men Type: BLOOD SPECIMEN Performed By: #### 1 9123-9, 2777-1, 76386-2 ####[facility]ORATORYCLIA [id number] [address] C diff Tox gens Stl Ql MEGAN+p robeon 06-11-2021 C. difficile toxin genes MEGAN+probe Ql (Stl) Negative Normal Negative for C. difficile toxin by PCR [facility] Comment on above: Order Comment: Speci men Type: STOOL SPECIMEN Performed By: #### 5 4067-4 ####[facility]ORATORYCLIA [id number] [address] CBC W Auto Differential pane l (Bld)on 06-11-2021 Basophils (Bld) [#/Vol] 0.03 10*3/uL Normal <0.11 [facility] Comment on above: Order Comment: Speci men Type: BLOOD SPECIMEN Performed By: #### 5 7021-8 ####[facility]ATORYCLIA [id number] [address] Basophils/100 WBC (Bld) 0.2 % Normal [facility] Comment on above: Order Comment: Speci men Type: BLOOD SPECIMEN Performed By: #### 5 7021-8 ####[facility]ORATORYCLIA [id number] [address] Differential cell count method Nom (Bld) Auto Normal [facility] Comment on above: Order Comment: Speci men Type: BLOOD SPECIMEN Performed By: #### 5 7021-8 ####[facility]ORATORYCLIA [id number] [address] STATES [facility] Eosinophils (Bld) [#/Vol] 0.19 10*3/uL Normal <0.46 [facility] Comment on above: Order Comment: Speci men Type: BLOOD SPECIMEN Performed By: #### 5 7021-8 ####[facility]ORATORYCLIA [id number] [address] Eosinophils/100 WBC (Bld) 1.5 % Normal [facility] Comment on above: Order Comment: Speci men Type: BLOOD SPECIMEN Performed By: #### 5 7021-8 ####[facility]ATORYCLIA [id number] [address] Erythrocyte distribution width (RBC) [Ratio] 16.3 % High 11.5-15.0 [facility] Comment on above: Order Comment: Speci men Type: BLOOD SPECIMEN Performed By: #### 5 7021-8 ####[facility]ORATORYCLIA [id number] [address] Hematocrit (Bld) [Volume fraction] 32.1 % Low 39.0-51.0 [facility] Comment on above: Order Comment: Speci men Type: BLOOD SPECIMEN Performed By: #### 5 7021-8 ####[facility]ATORYCLIA [id number] [address] Hemoglobin (Bld) [Mass/Vol] 9.3 g/dL Low 13.0-17.0 [facility] Comment on above: Order Comment: Speci men Type: BLOOD SPECIMEN Performed By: #### 5 7021-8 ####[facility]ATORYCLIA [id number] [address] IMMATURE GRAN % 0.6 % Normal [facility] Comment on above: Order Comment: Speci men Type: BLOOD SPECIMEN Performed By: #### 5 7021-8 ####[facility]ATORYCLIA [id number] [address] IMMATURE GRAN ABS 0.08 k/uL Normal <0.10 [facility] Comment on above: Order Comment: Speci men Type: BLOOD SPECIMEN Performed By: #### 5 7021-8 ####[facility]ORATORYCLIA [id number] [address] Lymphocytes (Bld) [#/Vol] 1.65 10*3/uL Normal 1.00-4.00 [facility] Comment on above: Order Comment: Speci men Type: BLOOD SPECIMEN Performed By: #### 5 7021-8 ####[facility]ORATORYCLIA [id number] [address] Lymphocytes/100 WBC (Bld) 12.8 % Normal [facility] Comment on above: Order Comment: Speci men Type: BLOOD SPECIMEN Performed By: #### 5 7021-8 ####[facility]ATORYCLIA [id number] [address] MCH (RBC) [Entitic mass] 27.2 pg Normal 26.0-34.0 [facility] Comment on above: Order Comment: Speci men Type: BLOOD SPECIMEN Performed By: #### 5 7021-8 ####[facility]ORATORYCLIA [id number] [address] MCHC (RBC) [Mass/Vol] 29.0 g/dL Low 30.5-36.0 [facility] Comment on above: Order Comment: Speci men Type: BLOOD SPECIMEN Performed By: #### 5 7021-8 ####[facility]ATORYCLIA [id number] [address] MCV (RBC) [Entitic vol] 93.9 fL Normal 80.0-100.0 [facility] Comment on above: Order Comment: Speci men Type: BLOOD SPECIMEN Performed By: #### 5 7021-8 ####[facility]ATORYCLIA [id number] [address] Monocytes (Bld) [#/Vol] 0.68 10*3/uL Normal <0.87 [facility] Comment on above: Order Comment: Speci men Type: BLOOD SPECIMEN Performed By: #### 5 7021-8 ####[facility]ORATORYCLIA [id number] [place] [address] Monocytes/100 WBC (Bld) 5.3 % Normal [facility] Comment on above: Order Comment: Speci men Type: BLOOD SPECIMEN Performed By: #### 5 7021-8 ####[facility] LABORATORYCLIA [id number] [address] Neutrophils (Bld) [#/Vol] 10.22 10*3/uL High 1.45-7.50 [facility] Comment on above: Order Comment: Speci men Type: BLOOD SPECIMEN Performed By: #### 5 7021-8 ####[facility]ATORYCLIA [id number] [address] Neutrophils/100 WBC (Bld) 79.6 % Normal [facility] Comment on above: Order Comment: Speci men Type: BLOOD SPECIMEN Performed By: #### 5 7021-8 ####[facility]ATORYCLIA [id number] [address] Nucleated RBC (Bld) [#/Vol] 10*3/uL Normal <0.01 [facility] Comment on above: Order Comment: Speci men Type: BLOOD SPECIMEN Performed By: #### 5 7021-8 ####[facility]ATORYCLIA [id number] [address] Nucleated RBC/100 WBC (Bld) [Ratio] 0.0 /100 WBC Normal 0.0 [facility] Comment on above: Order Comment: Speci men Type: BLOOD SPECIMEN Performed By: #### 5 7021-8 ####[facility] LABORATORYCLIA [id number] [address] Platelet mean volume (Bld) [Entitic vol] 11.1 fL Normal 9.0-12.7 [facility] Comment on above: Order Comment: Speci men Type: BLOOD SPECIMEN Performed By: #### 5 7021-8 ####[facility]ORATORYCLIA [id number] [address] Platelets (Bld) [#/Vol] 188 10*3/uL Normal 150-400 [facility] Comment on above: Order Comment: Speci men Type: BLOOD SPECIMEN Performed By: #### 5 7021-8 ####[facility]ATORYCLIA [id number] [address] RBC (Bld) [#/Vol] 3.42 10*6/uL Low 4.20-6.00 [facility] Comment on above: Order Comment: Speci men Type: BLOOD SPECIMEN Performed By: #### 5 7021-8 ####[facility]ATORYCLIA [id number] [address] WBC (Bld) [#/Vol] 12.85 10*3/uL High 3.70-11.00 [facility] Comment on above: Order Comment: Speci men Type: BLOOD SPECIMEN Performed By: #### 5 7021-8 ####[facility]ORATORYCLIA [id number] [address] CBC panel Auto (Bld)on 06-11 Erythrocyte distribution width (RBC) [Ratio] 16.2 % High 11.5-15.0 [facility] Comment on above: Order Comment: Speci men Type: BLOOD SPECIMEN Performed By: #### 5 8410-2 ####[facility]ORATORYCLIA [id number] [address] Hematocrit (Bld) [Volume fraction] 34.5 % Low 39.0-51.0 [facility] Comment on above: Order Comment: Speci men Type: BLOOD SPECIMEN Performed By: #### 5 8410-2 ####[facility]ATORYCLIA [id number] [address] Hemoglobin (Bld) [Mass/Vol] 10.3 g/dL Low 13.0-17.0 [facility] Comment on above: Order Comment: Speci men Type: BLOOD SPECIMEN Performed By: #### 5 8410-2 ####[facility]ORATORYCLIA [id number] [address] MCH (RBC) [Entitic mass] 28.1 pg Normal 26.0-34.0 [facility] Comment on above: Order Comment: Speci men Type: BLOOD SPECIMEN Performed By: #### 5 8410-2 ####[facility]ATORYCLIA [id number] [address] MCHC (RBC) [Mass/Vol] 29.9 g/dL Low 30.5-36.0 [facility] Comment on above: Order Comment: Speci men Type: BLOOD SPECIMEN Performed By: #### 5 8410-2 ####[facility]ATORYCLIA [id number] [address] MCV (RBC) [Entitic vol] 94.3 fL Normal 80.0-100.0 [facility] Comment on above: Order Comment: Speci men Type: BLOOD SPECIMEN Performed By: #### 5 8410-2 ####[facility]ORATORYCLIA [id number] [address] Nucleated RBC (Bld) [#/Vol] 10*3/uL Normal <0.01 [facility] Comment on above: Order Comment: Speci men Type: BLOOD SPECIMEN Performed By: #### 5 8410-2 ####[facility]ATORYCLIA [id number] [address] Platelet mean volume (Bld) [Entitic vol] 10.9 fL Normal 9.0-12.7 [facility] Comment on above: Order Comment: Speci men Type: BLOOD SPECIMEN Performed By: #### 5 8410-2 ####[facility]ORATORYCLIA [id number] [address] Platelets (Bld) [#/Vol] 210 10*3/uL Normal 150-400 [facility] Comment on above: Order Comment: Speci men Type: BLOOD SPECIMEN Performed By: #### 5 8410-2 ####[facility]ATORYCLIA [id number] [address] RBC (Bld) [#/Vol] 3.66 10*6/uL Low 4.20-6.00 [facility] Comment on above: Order Comment: Speci men Type: BLOOD SPECIMEN Performed By: #### 5 8410-2 ####[facility]ORATORYCLIA [id number] [address] WBC (Bld) [#/Vol] 13.03 10*3/uL High 3.70-11.00 [facility] Comment on above: Order Comment: Speci men Type: BLOOD SPECIMEN Performed By: #### 5 8410-2 ####[facility]ATORYCLIA [id number] [address] CONSULT PROGon 06-11-2021 CONSULT PROG Normal [facility] CONSULT PROG Normal [facility] CONSULT PROG Normal [facility] CT ABD/PEL W IVCONon 022 CT ABD/PEL W IVCON Invalid Interpretation Code [facility] Magnesium SerPl-mCncon 06-11 Magnesium [Mass/Vol] 2.7 mg/dL High 1.7-2.3 [facility] Comment on above: Order Comment: Speci men Type: BLOOD SPECIMEN Performed By: #### 1 9123-9, 2777-1, 25361-5 ####[facility]ORATORYCLIA [id number] [address] Phosphate SerPl-mCncon 06-11 Phosphate [Mass/Vol] 2.5 mg/dL Low 2.7-4.8 [facility] Comment on above: Order Comment: Speci men Type: BLOOD SPECIMEN Performed By: #### 1 9123-9, 2777-1, 23449-6 ####[facility]ORATORYCLIA [id number] [address] [facility] Basic metabolic 2000 panelon 06-10-2021 Anion gap [Moles/Vol] 7 mmol/L Low 9-18 [facility] Comment on above: Order Comment: Speci men Type: BLOOD SPECIMEN Performed By: #### 2 777-1, 86740-3, , HFP ####[facility]ORATORYCLIA [id number] [place], [place] [id number] [place] [address] [place] [facility] Calcium [Mass/Vol] 8.5 mg/dL Normal 8.5-10.2 [facility] Comment on above: Order Comment: Speci men Type: BLOOD SPECIMEN Performed By: #### 2 777-1, 60600-9, , HFP ####[facility]ORATORYCLIA [id number] [place], [place] [id number] [place] [address] [place] Chloride [Moles/Vol] 118 mmol/L High 97-105 [facility] Comment on above: Order Comment: Speci men Type: BLOOD SPECIMEN Performed By: #### 2 777-1, 41331-0, , HFP ####[facility] LABORATORYCLIA [id number] [address] [place] CO2 [Moles/Vol] 26 mmol/L Normal 22-30 [facility] Comment on above: Order Comment: Speci men Type: BLOOD SPECIMEN Performed By: #### 2 777-1, 96877-8, , HFP ####[facility]ORATORYCLIA [id number] [address] [place] Creatinine [Mass/Vol] 0.70 mg/dL Low 0.73-1.22 [facility] Comment on above: Order Comment: Speci men Type: BLOOD SPECIMEN Performed By: #### 2 777-1, 27220-0, , HFP ####[facility]ORATORYCLIA [id number] [place] [address] [place] GFR/1.73 sq M.predicted [...] actual GFR. Performed By: #### 2 777-1, 68179-9, , [facility] ####[facility]ORATORYCLIA [id number] [place] [address] [place] Glucose [Mass/Vol] 135 mg/dL High 74-99 [facility] Comment on above: Order Comment: Speci men Type: BLOOD SPECIMEN Result Comment: The [employer] [place] [employer] (ADA) provides guidance for cutoff [...] Standards of Medical Care in Diabetes 2016, [employer] [place] [employer]. Diabetes Care. 2016.39(Suppl 1). Performed By: #### 2 777-1, 77488-7, , [facility] ####[facility] LABORATORYIA [id number] [place] [address] [place] Potassium [Moles/Vol] 3.9 mmol/L Normal 3.7-5.1 [facility] Comment on above: Order Comment: Speci men Type: BLOOD SPECIMEN Performed By: #### 2 777-1, 22012-2, , [facility] ####[facility]ORATORYCLIA [id number] [place] [address] [place] Sodium [Moles/Vol] 151 mmol/L High 136-144 [facility] Comment on above: Order Comment: Speci men Type: BLOOD SPECIMEN Performed By: #### 2 777-1, 40648-2, , [facility] ####[facility]ORATORYCLIA [id number] [address] Urea nitrogen [Mass/Vol] 27 mg/dL High 9-24 [facility] Comment on above: Order Comment: Speci men Type: BLOOD SPECIMEN Performed By: #### 2 777-1, 79474-5, , [facility] ####[facility]ORATORYCLIA [id number] [address] CASE MANAGEMon 06-10-2021 CASE MANAGEM Normal [facility] CBC panel Auto (Bld)on 06-10 Erythrocyte distribution width (RBC) [Ratio] 16.2 % High 11.5-15.0 [facility] Comment on above: Order Comment: Speci men Type: BLOOD SPECIMEN Performed By: #### 5 8410-2 ####[facility]ORATORYCLIA [id number] [address] Hematocrit (Bld) [Volume fraction] 34.8 % Low 39.0-51.0 [facility] Comment on above: Order Comment: Speci men Type: BLOOD SPECIMEN Performed By: #### 5 8410-2 ####[facility]ATORYCLIA [id number] [address] Hemoglobin (Bld) [Mass/Vol] 10.2 g/dL Low 13.0-17.0 [facility] Comment on above: Order Comment: Speci men Type: BLOOD SPECIMEN Performed By: #### 5 8410-2 ####[facility]ORATORYCLIA [id number] [address] MCH (RBC) [Entitic mass] 27.1 pg Normal 26.0-34.0 [facility] Comment on above: Order Comment: Speci men Type: BLOOD SPECIMEN Performed By: #### 5 8410-2 ####[facility]ATORYCLIA [id number] [address] MCHC (RBC) [Mass/Vol] 29.3 g/dL Low 30.5-36.0 [facility] Comment on above: Order Comment: Speci men Type: BLOOD SPECIMEN Performed By: #### 5 8410-2 ####[facility]ATORYCLIA [id number] [address] MCV (RBC) [Entitic vol] 92.6 fL Normal 80.0-100.0 [facility] Comment on above: Order Comment: Speci men Type: BLOOD SPECIMEN Performed By: #### 5 8410-2 ####[facility]ORATORYCLIA [id number] [address] Nucleated RBC (Bld) [#/Vol] 10*3/uL Normal <0.01 [facility] Comment on above: Order Comment: Speci men Type: BLOOD SPECIMEN Performed By: #### 5 8410-2 ####[facility]ATORYCLIA [id number] [address] Platelet mean volume (Bld) [Entitic vol] 10.4 fL Normal 9.0-12.7 [facility] Comment on above: Order Comment: Speci men Type: BLOOD SPECIMEN Performed By: #### 5 8410-2 ####[facility]ORATORYCLIA [id number] [address] Platelets (Bld) [#/Vol] 206 10*3/uL Normal 150-400 [facility] Comment on above: Order Comment: Speci men Type: BLOOD SPECIMEN Performed By: #### 5 8410-2 ####[facility]ORATORYCLIA [id number] [address] RBC (Bld) [#/Vol] 3.76 10*6/uL Low 4.20-6.00 [facility] Comment on above: Order Comment: Speci men Type: BLOOD SPECIMEN Performed By: #### 5 8410-2 ####[facility]ATORYCLIA [id number] [place] [address] [facility] WBC (Bld) [#/Vol] 11.36 10*3/uL High 3.70-11.00 [facility] Comment on above: Order Comment: Speci men Type: BLOOD SPECIMEN Performed By: #### 5 8410-2 ####[facility]ORATORYCLIA [id number] [address] HEPATIC FUNCTION PNLon 06-10 Albumin [Mass/Vol] 3.1 g/dL Low 3.9-4.9 [facility] Comment on above: Order Comment: Speci men Type: BLOOD SPECIMEN Performed By: #### 2 777-1, 27710-9, , HFP ####[facility]ORATORYCLIA [id number] [place], [place] [address] [place] [address] ALP [Catalytic activity/Vol] 73 U/L Normal 38-113 [facility] Comment on above: Order Comment: Speci men Type: BLOOD SPECIMEN Performed By: #### 2 777-1, 35936-2, , HFP ####[facility]ATORYCLIA [id number] [address] ALT With P-5'-P [Catalytic activity/Vol] 64 U/L High 10-54 [facility] Comment on above: Order Comment: Speci men Type: BLOOD SPECIMEN Performed By: #### 2 777-1, 87451-5, , HFP ####[facility]ATORYCLIA [id number] [place], [place] [id number] [place] [address] AST With P-5'-P [Catalytic activity/Vol] 44 U/L High 14-40 [facility] Comment on above: Order Comment: Speci men Type: BLOOD SPECIMEN Performed By: #### 2 777-1, 83668-2, , HFP ####[facility]ORYCLIA [id number] [facility] [address] [address] Bilirubin [Mass/Vol] 0.5 mg/dL Normal 0.2-1.3 [facility] Comment on above: Order Comment: Speci men Type: BLOOD SPECIMEN Performed By: #### 2 777-1, 52373-5, , [facility] ####[facility]ORATORYCLIA [id number] [address] Bilirubin.conjugated [Mass/Vol] mg/dL Normal <0.2 [facility] Comment on above: Order Comment: Speci men Type: BLOOD SPECIMEN Performed By: #### 2 777-1, 28504-6, , [facility] ####[facility]ORATORYCLIA [id number] [address] Protein [Mass/Vol] 5.7 g/dL Low 6.3-8.0 [facility] Comment on above: Order Comment: Speci men Type: BLOOD SPECIMEN Performed By: #### 2 777-1, , , [facility] ####[facility]ORATORYCLIA [id number] [address] LEVETIRACETAMon 06-10-2021 levETIRAcetam [Mass/Vol] 57.7 ug/mL [...] developed and its performance characteristics determined by [facility]'s Isrrael Chris [facility] Pathology and Laboratory Medicine [place] ( [facility]). It has not been cleared or approved by the FDA. [facility] is regulated under CLIA as qualified to perform high complexity testing. This test is used for clinical purposes. It should not be regarded as investigational or for research. Performed By: #### L EMILYET ####[facility] REFERENCE LABCLIA [id number] LIBORIO MCKEON [id number] [address] [place] Magnesium SerPl-mCncon 06-10 Magnesium [Mass/Vol] 2.7 mg/dL High 1.7-2.3 [facility] Comment on above: Order Comment: Speci men Type: BLOOD SPECIMEN Performed By: #### 2 777-1, 42996-0, , [facility] ####[facility]ORATORYCLIA [id number] [place] [address] [place] Phosphate SerPl-ncon 06-10 Phosphate [Mass/Vol] 1.8 mg/dL Low 2.7-4.8 [facility] Comment on above: Order Comment: Speci men Type: BLOOD SPECIMEN Performed By: #### 2 777-1, 55287-6, , [facility] ####[facility]ORATORYCLIA [id number] [place] [address] [place] ALLIED HEALTHon 06-09-2021 [...] 2 4321-2, 2776-05, ####[facility]ORATORYCLIA [id number] [place] [address] [place] Calcium [Mass/Vol] 8.3 mg/dL Low 8.5-10.2 [facility] Comment on above: Order Comment: Speci men Type: BLOOD SPECIMEN Performed By: #### 2 4321-2, 2776-05, ####[facility]ORATORYCLIA [id number] [place] [address] [place] Chloride [Moles/Vol] 116 mmol/L High 97-105 [facility] Comment on above: Order Comment: Speci men Type: BLOOD SPECIMEN Performed By: #### 2 4321-2, 2776-05, ####[facility]ORATORYCLIA [id number] [place] [address] [place] CO2 [Moles/Vol] 27 mmol/L Normal 22-30 [facility] Comment on above: Order Comment: Speci men Type: BLOOD SPECIMEN Performed By: #### 2 4321-2, 2776-05, ####[facility]ORATORYCLIA [id number] [address] [place] Creatinine [Mass/Vol] 0.70 mg/dL Low 0.73-1.22 [facility] Comment on above: Order Comment: Speci men Type: BLOOD SPECIMEN Performed By: #### 2 4321-2, 2776-05, ####[facility]ORATORYCLIA [id number] [address] [place] GFR/1.73 sq M.predicted [...] 2 4321-2, 2776-05, ####[facility]ORATORYCLIA [id number] [place] [address] [place] Glucose [Mass/Vol] 123 mg/dL High 74-99 [facility] Comment on above: Order Comment: Speci men Type: BLOOD SPECIMEN Result Comment: The [employer] [place] [employer] (ADA) provides guidance for cutoff [...] Standards of Medical Care in Diabetes 2016, [employer]. Diabetes Care. 2016.39(Suppl 1). Performed By: #### 2 4321-2, 2776-05, ####[facility]ORATORYCLIA [id number] [address] STATES OF [facility] Potassium [Moles/Vol] 3.5 mmol/L Low 3.7-5.1 [facility] Comment on above: Order Comment: Speci men Type: BLOOD SPECIMEN Performed By: #### 2 1-2, 2776-05, ####[facility]ORATORYCLIA [id number] [address] STATES [facility] Sodium [Moles/Vol] 151 mmol/L High 136-144 [facility] Comment on above: Order Comment: Speci men Type: BLOOD SPECIMEN Performed By: #### 2 1-2, 2776-05, ####[facility]ORATORYCLIA [id number] [address] [place] Urea nitrogen [Mass/Vol] 39 mg/dL High 9-24 [facility] Comment on above: Order Comment: Speci men Type: BLOOD SPECIMEN Performed By: #### 2 4321-2, 2776-05, ####[facility]ORATORYCLIA [id number] [address] [facility] CBC panel Auto (Bld)on 06-09 Erythrocyte distribution width (RBC) [Ratio] 16.2 % High 11.5-15.0 [facility] Comment on above: Order Comment: Speci men Type: BLOOD SPECIMEN Performed By: #### 5 8410-2 ####[facility]ORATORYCLIA [id number] [address] Hematocrit (Bld) [Volume fraction] 33.7 % Low 39.0-51.0 [facility] Comment on above: Order Comment: Speci men Type: BLOOD SPECIMEN Performed By: #### 5 8410-2 ####[facility]ORATORYCLIA [id number] [address] Hemoglobin (Bld) [Mass/Vol] 10.2 g/dL Low 13.0-17.0 [facility] Comment on above: Order Comment: Speci men Type: BLOOD SPECIMEN Performed By: #### 5 8410-2 ####[facility]ORATORYCLIA [id number] [address] MCH (RBC) [Entitic mass] 27.4 pg Normal 26.0-34.0 [facility] Comment on above: Order Comment: Speci men Type: BLOOD SPECIMEN Performed By: #### 5 8410-2 ####[facility]ORATORYCLIA [id number] [address] MCHC (RBC) [Mass/Vol] 30.3 g/dL Low 30.5-36.0 [facility] Comment on above: Order Comment: Speci men Type: BLOOD SPECIMEN Performed By: #### 5 8410-2 ####[facility]ORATORYCLIA [id number] [address] MCV (RBC) [Entitic vol] 90.6 fL Normal 80.0-100.0 [facility] Comment on above: Order Comment: Speci men Type: BLOOD SPECIMEN Performed By: #### 5 8410-2 ####[facility]ORATORYCLIA [id number] [address] Nucleated RBC (Bld) [#/Vol] 10*3/uL Normal <0.01 [facility] Comment on above: Order Comment: Speci men Type: BLOOD SPECIMEN Performed By: #### 5 8410-2 ####[facility]ORATORYCLIA [id number] [address] Platelet mean volume (Bld) [Entitic vol] 10.3 fL Normal 9.0-12.7 [facility] Comment on above: Order Comment: Speci men Type: BLOOD SPECIMEN Performed By: #### 5 8410-2 ####[facility]ORATORYCLIA [id number] [address] Platelets (Bld) [#/Vol] 219 10*3/uL Normal 150-400 [facility] Comment on above: Order Comment: Speci men Type: BLOOD SPECIMEN Performed By: #### 5 8410-2 ####[facility]ORATORYCLIA [id number] [address] RBC (Bld) [#/Vol] 3.72 10*6/uL Low 4.20-6.00 [facility] Comment on above: Order Comment: Speci men Type: BLOOD SPECIMEN Performed By: #### 5 8410-2 ####[facility]ORATORYCLIA [id number] [address] WBC (Bld) [#/Vol] 13.02 10*3/uL High 3.70-11.00 [facility] Comment on above: Order Comment: Speci men Type: BLOOD SPECIMEN Performed By: #### 5 8410-2 ####[facility]ORATORYCLIA [id number] [address] CONSULT PROGon 06-09-2021 CONSULT PROG Normal [facility] CONSULT PROG Normal [facility] CT BRAIN WO IVCONon 06-09-[address] BRAIN WO IVCON Normal [facility] Magnesium SerPl-mCncon 06-09 Magnesium [Mass/Vol] 2.8 mg/dL High 1.7-2.3 [facility] Comment on above: Order Comment: Speci men Type: BLOOD SPECIMEN Performed By: #### 2 4321-2, 2777-1, 62733-8 ####[facility]ORATORYCLIA [id number] [address] NURSING PROGon 06-09-2021 NURSING PROG Normal [facility] NUTRITIONon 06-09-2021 NUTRITION Normal [facility] PT EDon 06-09-2021 PT ED Normal [facility] Phosphate SerPl-mCncon 06-09 Phosphate [Mass/Vol] 2.2 mg/dL Low 2.7-4.8 [facility] Comment on above: Order Comment: Speci men Type: BLOOD SPECIMEN Performed By: #### 2 4321-2, 2777-1, 98884-5 ####[facility]ORATORYCLIA [id number] [address] Vancomycin random [Mass/Vol] on 06-09-2021 Vancomycin [Mass/Vol] 18.9 ug/mL Normal 10.0-20.0 [facility] Comment on above: Order Comment: Speci men Type: BLOOD SPECIMEN Result Comment: Refe rence ranges and high/low indicator flags are provided as general guidelines only. The treating physician must determine appropriate target levels/dosing based on the specific clinical situation. Performed By: #### 4 091-5 ####[facility]ORATORYCLIA [id number] [address] XR ABD 2V SUPINE W UPR/DECUB [...] 1 Rare Staphylococcus saccharolyticus Identification performed by [facility] [employer] See scanned document for susceptibility report Normal [facility] Comment on above: Performed By: #### 6 462-6, 635-3 ####[facility]ORATORYCLIA [id number] [place] [address] [place] Bacteria Wnd Culton 06-08-19 22 Bacteria identified Cx Nom (Wound) CULTURE, INTRAOPERATIVE HARDWARE: No growth 5 days GRAM STAIN: Not performed on specimen type Normal [facility] Comment on above: Performed By: #### 6 462-6, 635-3 ####[facility]ORATORYCLIA [id number] [place] [address] [place] Basic metabolic 2000 panelon 06-08-2021 Anion gap [Moles/Vol] 9 mmol/L Normal 9-18 [facility] Comment on above: Order Comment: Speci men Type: BLOOD SPECIMEN Performed By: #### 2 4321-2, 2777-1, ####[facility]ORATORYCLIA [id number] [place] [address] [place] Calcium [Mass/Vol] 8.7 mg/dL Normal 8.5-10.2 [facility] Comment on above: Order Comment: Speci men Type: BLOOD SPECIMEN Performed By: #### 2 4321-2, 2777-, ####[facility]ORATORYCLIA [id number] [place] [address] [place] Chloride [Moles/Vol] 113 mmol/L High 97-105 [facility] Comment on above: Order Comment: Speci men Type: BLOOD SPECIMEN Performed By: #### 2 4321-2, 2776-05, ####[facility]ORATORYCLIA [id number] [place] [address] [place] CO2 [Moles/Vol] 26 mmol/L Normal 22-30 [facility] Comment on above: Order Comment: Speci men Type: BLOOD SPECIMEN Performed By: #### 2 4321-2, 2776-05, ####[facility]ORATORYCLIA [id number] [place] [address] [place] Creatinine [Mass/Vol] 0.68 mg/dL Low 0.73-1.22 [facility] Comment on above: Order Comment: Speci men Type: BLOOD SPECIMEN Performed By: #### 2 4321-2, 2776-05, ####[facility]ORATORYCLIA [id number] [address] [place] GFR/1.73 sq M.predicted [...] 2 4321-2, 2776-05, ####[facility]ORATORYCLIA [id number] [place] [address] [place] Glucose [Mass/Vol] 146 mg/dL High 74-99 [facility] Comment on above: Order Comment: Speci men Type: BLOOD SPECIMEN Result Comment: The [place] [employer] (ADA) provides guidance for cutoff [...] Standards of Medical Care in Diabetes 2016, [employer] [place] [employer]. Diabetes Care. 2016.39(Suppl 1). Performed By: #### 2 4321-2, 2776-05, ####[facility]ORATORYCLIA [id number] [address] [place] [facility] Potassium [Moles/Vol] 3.6 mmol/L Low 3.7-5.1 [facility] Comment on above: Order Comment: Speci men Type: BLOOD SPECIMEN Performed By: #### 2 1-2, 2776-05, ####[facility]ORATORYCLIA [id number] [address] STATES [facility] Sodium [Moles/Vol] 148 mmol/L High 136-144 [facility] Comment on above: Order Comment: Speci men Type: BLOOD SPECIMEN Performed By: #### 2 4321-2, 2776-05, ####[facility]ORATORYCLIA [id number] [address] [place] Urea nitrogen [Mass/Vol] 36 mg/dL High 9-24 [facility] Comment on above: Order Comment: Speci men Type: BLOOD SPECIMEN Performed By: #### 2 4321-2, 2776-05, ####[facility]ORATORYCLIA [id number] [address] [facility] CASE MANAGEMon 06-08-2021 CASE MANAGEM Normal [facility] CBC panel Auto (Bld)on 06-08 Erythrocyte distribution width (RBC) [Ratio] 16.0 % High 11.5-15.0 [facility] Comment on above: Order Comment: Speci men Type: BLOOD SPECIMEN Performed By: #### 5 8410-2 ####[facility]ORATORYCLIA [id number] [address] Hematocrit (Bld) [Volume fraction] 38.4 % Low 39.0-51.0 [facility] Comment on above: Order Comment: Speci men Type: BLOOD SPECIMEN Performed By: #### 5 8410-2 ####[facility]ORATORYCLIA [id number] [address] Hemoglobin (Bld) [Mass/Vol] 12.1 g/dL Low 13.0-17.0 [facility] Comment on above: Order Comment: Speci men Type: BLOOD SPECIMEN Performed By: #### 5 8410-2 ####[facility]ORATORYCLIA [id number] [address] MCH (RBC) [Entitic mass] 28.3 pg Normal 26.0-34.0 [facility] Comment on above: Order Comment: Speci men Type: BLOOD SPECIMEN Performed By: #### 5 8410-2 ####[facility]ORATORYCLIA [id number] [address] MCHC (RBC) [Mass/Vol] 31.5 g/dL Normal 30.5-36.0 [facility] Comment on above: Order Comment: Speci men Type: BLOOD SPECIMEN Performed By: #### 5 8410-2 ####[facility]ORATORYCLIA [id number] [address] MCV (RBC) [Entitic vol] 89.9 fL Normal 80.0-100.0 [facility] Comment on above: Order Comment: Speci men Type: BLOOD SPECIMEN Performed By: #### 5 8410-2 ####[facility]ORATORYCLIA [id number] [address] Nucleated RBC (Bld) [#/Vol] 10*3/uL Normal <0.01 [facility] Comment on above: Order Comment: Speci men Type: BLOOD SPECIMEN Performed By: #### 5 8410-2 ####[facility]ORATORYCLIA [id number] [address] Platelet mean volume (Bld) [Entitic vol] 10.3 fL Normal 9.0-12.7 [facility] Comment on above: Order Comment: Speci men Type: BLOOD SPECIMEN Performed By: #### 5 8410-2 ####[facility]ORATORYCLIA [id number] [address] STATES [facility] Platelets (Bld) [#/Vol] 236 10*3/uL Normal 150-400 [facility] Comment on above: Order Comment: Speci men Type: BLOOD SPECIMEN Performed By: #### 5 8410-2 ####[facility]ORATORYCLIA [id number] [address] RBC (Bld) [#/Vol] 4.27 10*6/uL Normal 4.20-6.00 [facility] Comment on above: Order Comment: Speci men Type: BLOOD SPECIMEN Performed By: #### 5 8410-2 ####[facility]ORATORYCLIA [id number] [address] WBC (Bld) [#/Vol] 11.06 10*3/uL High 3.70-11.00 [facility] Comment on above: Order Comment: Speci men Type: BLOOD SPECIMEN Performed By: #### 5 8410-2 ####[facility]ORATORYCLIA [id number] [address] CONSULT PROGon 06-08-2021 CONSULT PROG Normal [facility] CT BRAIN WO IVCONon 06-08-[address] BRAIN WO IVCON Normal [facility] Magnesium SerPl-mCncon 06-08 Magnesium [Mass/Vol] 2.8 mg/dL High 1.7-2.3 [facility] Comment on above: Order Comment: Speci men Type: BLOOD SPECIMEN Performed By: #### 2 4321-2, 2777-1, 89084-5 ####[facility] LABORATORYCLIA [id number] [address] Microorganism Spec Culton Microorganism identified Cx Nom (Unsp spec) CULTURE, FUNGAL: No Fungus isolated after 28 days FUNGAL SMEAR: No fungus seen Normal [facility] Comment on above: Performed By: #### 1 1475-1 ####[facility]ORATORYCLIA [id number] [address] NURSING PROGon 06-08-2021 NURSING PROG Normal [facility] OPERATIVE NOon 06-08-2021 OPERATIVE NO Normal [facility] OPERATIVE NO [facility] PT panel Coag (PPP)on 2021 INR Coag (PPP) [Relative time] 1.1 {INR} Normal 0.9-1.3 [facility] Comment on above: Order Comment: Speci men Type: BLOOD SPECIMEN Result Comment: Yris min K Antagonist (VKA) Therapeutic Range: INR 2 to 3 (Target INR of 2.5)Note: For patients treated with VKA drugs, such as warfarin, the [employer] 2012 Guideline recommends [...] al. Chest 2012, 141:7S-47SAlba MURRY et al. [employer] 2017, 70: 252-289 Performed By: #### 3 4528-0, 93958-1 ####[facility] LABORATORYCLIA [id number] [address] PT Coag (PPP) [Time] 11.9 s Normal 9.7-13.0 [facility] Comment on above: Order Comment: Speci men Type: BLOOD SPECIMEN Performed By: #### 3 4528-0, 82633-9 ####[facility]ORATORYCLIA [id number] [address] [facility] Phosphate SerPl-mCncon 06-08 Phosphate [Mass/Vol] 2.3 mg/dL Low 2.7-4.8 [facility] Comment on above: Order Comment: Speci men Type: BLOOD SPECIMEN Performed By: #### 2 4321-2, 2777-1, 74645-6 ####[facility]ORATORYCLIA [id number] [address] aPTT PPPon 06-08-2021 aPTT Coag (PPP) [Time] 24.2 s Normal 23.0-32.4 [facility] Comment on above: Order Comment: Speci men Type: BLOOD SPECIMEN Performed By: #### 3 4528-0, 50414-7 ####[facility]ORATORYCLIA [id number] [address] [facility] ALLIED HEALTHon 06-07-2021 ALLIED HEALTH Normal [facility] [...] #### 6 06-4 ####[facility] LABORATORYCLIA [id number] [address] [facility] Basic metabolic 2000 panelon 06-07-2021 Anion gap [Moles/Vol] 9 mmol/L Normal 9-18 [facility] Comment on above: Order Comment: Speci men Type: BLOOD SPECIMEN Performed By: #### 1 9123-9, 2777-1, 29421-4 ####[facility]ORATORYCLIA [id number] [address] [place] [facility] Calcium [Mass/Vol] 8.8 mg/dL Normal 8.5-10.2 [facility] Comment on above: Order Comment: Speci men Type: BLOOD SPECIMEN Performed By: #### 1 9123-9, 2777-1, 36183-1 ####[facility]ORATORYCLIA [id number] [address] [place] Chloride [Moles/Vol] 111 mmol/L High 97-105 [facility] Comment on above: Order Comment: Speci men Type: BLOOD SPECIMEN Performed By: #### 1 9123-9, 2776-05, 04863-0 ####[facility]ORATORYCLIA [id number] [address] CO2 [Moles/Vol] 27 mmol/L Normal 22-30 [facility] Comment on above: Order Comment: Speci men Type: BLOOD SPECIMEN Performed By: #### 1 9123-9, 27711-04, 22636-9 ####[facility]ORATORYCLIA [id number] [address] [facility] Creatinine [Mass/Vol] 0.66 mg/dL Low 0.73-1.22 [facility] Comment on above: Order Comment: Speci men Type: BLOOD SPECIMEN Performed By: #### 1 9123-9, 2777, 45014-1 ####[facility]ORATORYCLIA [id number] [address] [place] GFR/1.73 sq M.predicted [...] GFR. Performed By: #### 1 9123-9, 2776-05, 38148-9 ####[facility]ORATORYCLIA [id number] [place] [address] [place] Glucose [Mass/Vol] 123 mg/dL High 74-99 [facility] Comment on above: Order Comment: Speci men Type: BLOOD SPECIMEN Result Comment: The [employer] [place] [employer] (ADA) provides guidance for cutoff [...] Standards of Medical Care in Diabetes 2016, [employer] [place] [employer]. Diabetes Care. 2016.39(Suppl 1). Performed By: #### 1 9123-9, 2776-05, ####[facility]ORATORYCLIA [id number] [address] [place] [facility] Potassium [Moles/Vol] 3.6 mmol/L Low 3.7-5.1 [facility] Comment on above: Order Comment: Speci men Type: BLOOD SPECIMEN Performed By: #### 1 9123-9, 2776-05, 81755-1 ####[facility]ORATORYCLIA [id number] [address] [place] Sodium [Moles/Vol] 147 mmol/L High 136-144 [facility] Comment on above: Order Comment: Speci men Type: BLOOD SPECIMEN Performed By: #### 1 9123-9, 2777-1, 88515-2 ####[facility]ORATORYCLIA [id number] [address] [place] Urea nitrogen [Mass/Vol] 30 mg/dL High 9-24 [facility] Comment on above: Order Comment: Speci men Type: BLOOD SPECIMEN Performed By: #### 1 9123-9, 2777-1, 37295-8 ####[facility]ORATORYCLIA [id number] [address] STATES [facility] CBC W Auto Differential pane l (Bld)on 06-07-2021 Basophils (Bld) [#/Vol] 10*3/uL Normal <0.11 [facility] Comment on above: Order Comment: Speci men Type: BLOOD SPECIMEN Performed By: #### 5 7021-8 ####[facility]ORATORYCLIA [id number] [address] Basophils/100 WBC (Bld) 0.2 % Normal [facility] Comment on above: Order Comment: Speci men Type: BLOOD SPECIMEN Performed By: #### 5 7021-8 ####[facility]ORATORYCLIA [id number] [address] Differential cell count method Nom (Bld) Auto Normal [facility] Comment on above: Order Comment: Speci men Type: BLOOD SPECIMEN Performed By: #### 5 7021-8 ####[facility]ORATORYCLIA [id number] [address] [place] Eosinophils (Bld) [#/Vol] 0.06 10*3/uL Normal <0.46 [facility] Comment on above: Order Comment: Speci men Type: BLOOD SPECIMEN Performed By: #### 5 7021-8 ####[facility]ORYCLIA [id number] [address] Eosinophils/100 WBC (Bld) 0.6 % Normal [facility] Comment on above: Order Comment: Speci men Type: BLOOD SPECIMEN Performed By: #### 5 7021-8 ####[facility]ORYCLIA [id number] [address] Erythrocyte distribution width (RBC) [Ratio] 15.8 % High 11.5-15.0 [facility] Comment on above: Order Comment: Speci men Type: BLOOD SPECIMEN Performed By: #### 5 7021-8 ####[facility]ORATORYCLIA [id number] [address] Hematocrit (Bld) [Volume fraction] 40.4 % Normal 39.0-51.0 [facility] Comment on above: Order Comment: Speci men Type: BLOOD SPECIMEN Performed By: #### 5 7021-8 ####[facility]ORATORYCLIA [id number] [address] Hemoglobin (Bld) [Mass/Vol] 12.4 g/dL Low 13.0-17.0 [facility] Comment on above: Order Comment: Speci men Type: BLOOD SPECIMEN Performed By: #### 5 7021-8 ####[facility]ORATORYCLIA [id number] [address] IMMATURE GRAN % 0.7 % Normal [facility] Comment on above: Order Comment: Speci men Type: BLOOD SPECIMEN Performed By: #### 5 7021-8 ####[facility]ORATORYCLIA [id number] [address] IMMATURE GRAN ABS 0.07 k/uL Normal <0.10 [facility] Comment on above: Order Comment: Speci men Type: BLOOD SPECIMEN Performed By: #### 5 7021-8 ####[facility]ORATORYCLIA [id number] [address] Lymphocytes (Bld) [#/Vol] 1.43 10*3/uL Normal 1.00-4.00 [facility] Comment on above: Order Comment: Speci men Type: BLOOD SPECIMEN Performed By: #### 5 7021-8 ####[facility] LABORATORYCLIA [id number] [address] Lymphocytes/100 WBC (Bld) 14.1 % Normal [facility] Comment on above: Order Comment: Speci men Type: BLOOD SPECIMEN Performed By: #### 5 7021-8 ####[facility] LABORATORYCLIA [id number] [address] MCH (RBC) [Entitic mass] 27.6 pg Normal 26.0-34.0 [facility] Comment on above: Order Comment: Speci men Type: BLOOD SPECIMEN Performed By: #### 5 7021-8 ####[facility] LABORATORYCLIA [id number] [address] MCHC (RBC) [Mass/Vol] 30.7 g/dL Normal 30.5-36.0 [facility] Comment on above: Order Comment: Speci men Type: BLOOD SPECIMEN Performed By: #### 5 7021-8 ####[facility] LABORATORYCLIA [id number] [address] MCV (RBC) [Entitic vol] 89.8 fL Normal 80.0-100.0 [facility] Comment on above: Order Comment: Speci men Type: BLOOD SPECIMEN Performed By: #### 5 7021-8 ####[facility] LABORATORYCLIA [id number] [address] Monocytes (Bld) [#/Vol] 0.82 10*3/uL Normal <0.87 [facility] Comment on above: Order Comment: Speci men Type: BLOOD SPECIMEN Performed By: #### 5 7021-8 ####[facility] LABORATORYCLIA [id number] [address] Monocytes/100 WBC (Bld) 8.1 % Normal [facility] Comment on above: Order Comment: Speci men Type: BLOOD SPECIMEN Performed By: #### 5 7021-8 ####[facility] LABORATORYCLIA [id number] [address] Neutrophils (Bld) [#/Vol] 7.74 10*3/uL High 1.45-7.50 [facility] Comment on above: Order Comment: Speci men Type: BLOOD SPECIMEN Performed By: #### 5 7021-8 ####[facility] LABORATORYCLIA [id number] [address] Neutrophils/100 WBC (Bld) 76.3 % Normal [facility] Comment on above: Order Comment: Speci men Type: BLOOD SPECIMEN Performed By: #### 5 7021-8 ####[facility]ORATORYCLIA [id number] [address] Nucleated RBC (Bld) [#/Vol] 10*3/uL Normal <0.01 [facility] Comment on above: Order Comment: Speci men Type: BLOOD SPECIMEN Performed By: #### 5 7021-8 ####[facility] LABORATORYCLIA [id number] [address] Nucleated RBC/100 WBC (Bld) [Ratio] 0.0 /100 WBC Normal 0.0 [facility] Comment on above: Order Comment: Speci men Type: BLOOD SPECIMEN Performed By: #### 5 7021-8 ####[facility] LABORATORYCLIA [id number] [address] Platelet mean volume (Bld) [Entitic vol] 10.4 fL Normal 9.0-12.7 [facility] Comment on above: Order Comment: Speci men Type: BLOOD SPECIMEN Performed By: #### 5 7021-8 ####[facility] LABORATORYCLIA [id number] [address] Platelets (Bld) [#/Vol] 236 10*3/uL Normal 150-400 [facility] Comment on above: Order Comment: Speci men Type: BLOOD SPECIMEN Performed By: #### 5 7021-8 ####[facility]ATORYCLIA [id number] [address] RBC (Bld) [#/Vol] 4.50 10*6/uL Normal 4.20-6.00 [facility] Comment on above: Order Comment: Speci men Type: BLOOD SPECIMEN Performed By: #### 5 7021-8 ####[facility] LABORATORYCLIA [id number] [address] WBC (Bld) [#/Vol] 10.14 10*3/uL Normal 3.70-11.00 [facility] Comment on above: Order Comment: Speci men Type: BLOOD SPECIMEN Performed By: #### 5 7021-8 ####[facility] LABORATORYCLIA [id number] [address] CBC panel Auto (Bld)on 06-07 Erythrocyte distribution width (RBC) [Ratio] 15.8 % High 11.5-15.0 [facility] Comment on above: Order Comment: Speci men Type: BLOOD SPECIMEN Performed By: #### 5 8410-2 ####[facility] LABORATORYCLIA [id number] [address] Hematocrit (Bld) [Volume fraction] 40.0 % Normal 39.0-51.0 [facility] Comment on above: Order Comment: Speci men Type: BLOOD SPECIMEN Performed By: #### 5 8410-2 ####[facility]ATORYCLIA [id number] [address] Hemoglobin (Bld) [Mass/Vol] 12.3 g/dL Low 13.0-17.0 [facility] Comment on above: Order Comment: Speci men Type: BLOOD SPECIMEN Performed By: #### 5 8410-2 ####[facility] LABORATORYCLIA [id number] [address] MCH (RBC) [Entitic mass] 27.3 pg Normal 26.0-34.0 [facility] Comment on above: Order Comment: Speci men Type: BLOOD SPECIMEN Performed By: #### 5 8410-2 ####[facility]ORATORYCLIA [id number] [address] MCHC (RBC) [Mass/Vol] 30.8 g/dL Normal 30.5-36.0 [facility] Comment on above: Order Comment: Speci men Type: BLOOD SPECIMEN Performed By: #### 5 8410-2 ####[facility] LABORATORYCLIA [id number] [address] MCV (RBC) [Entitic vol] 88.7 fL Normal 80.0-100.0 [facility] Comment on above: Order Comment: Speci men Type: BLOOD SPECIMEN Performed By: #### 5 8410-2 ####[facility] LABORATORYCLIA [id number] [address] Nucleated RBC (Bld) [#/Vol] 10*3/uL Normal <0.01 [facility] Comment on above: Order Comment: Speci men Type: BLOOD SPECIMEN Performed By: #### 5 8410-2 ####[facility]ORATORYCLIA [id number] [address] Platelet mean volume (Bld) [Entitic vol] 10.0 fL Normal 9.0-12.7 [facility] Comment on above: Order Comment: Speci men Type: BLOOD SPECIMEN Performed By: #### 5 8410-2 ####[facility] LABORATORYCLIA [id number] [address] Platelets (Bld) [#/Vol] 234 10*3/uL Normal 150-400 [facility] Comment on above: Order Comment: Speci men Type: BLOOD SPECIMEN Performed By: #### 5 8410-2 ####[facility]ATORYCLIA [id number] [address] RBC (Bld) [#/Vol] 4.51 10*6/uL Normal 4.20-6.00 [facility] Comment on above: Order Comment: Speci men Type: BLOOD SPECIMEN Performed By: #### 5 8410-2 ####[facility] LABORATORYCLIA [id number] [place] [address] [place] WBC (Bld) [#/Vol] 11.47 10*3/uL High 3.70-11.00 [facility] Comment on above: Order Comment: Speci men Type: BLOOD SPECIMEN Performed By: #### 5 8410-2 ####[facility] LABORATORYCLIA [id number] [address] [place] CONSULT PROGon 06-07-2021 CONSULT PROG Normal [facility] CONSULT PROG Normal [facility] CSF MANUAL DIFFon 06-07-2021 DIF TTL, CSF 92 cells counted Normal [facility] Comment on above: Order Comment: Speci men Type: CEREBROSPINAL FLUID Performed By: #### 3 4563-7, [id number], [id number] ####[facility] LABORATORYCLIA [id number] [address] [place] EOSIN%, CSF 1 % Normal [facility] Comment on above: Order Comment: Speci men Type: CEREBROSPINAL FLUID Performed By: #### 3 4563-7, [id number], [id number] ####[facility]ORATORYCLIA [id number] [place], [place] [address] [place] [address] [place] LYMPH%, CSF 21 % Low 50-90 [facility] Comment on above: Order Comment: Speci men Type: CEREBROSPINAL FLUID Performed By: #### 3 4563-7, [id number], [id number] ####[facility] LABORATORYCLIA [id number] [address] [place] MACRO%, CSF 27 % High <1 [facility] Comment on above: Order Comment: Speci men Type: CEREBROSPINAL FLUID Result Comment: Tati ected result: Previously reported as 22 % on 06/07/2021 at 1:49 PM EST. Performed By: #### 3 4563-7, [id number], [id number] ####[facility] LABORATORYCLIA [id number] [place], [place] [address] [place] [address] [place] MONO%, CSF 36 % Normal 10-50 [facility] Comment on above: Order Comment: Speci men Type: CEREBROSPINAL FLUID Performed By: #### 3 4563-7, [id number], [id number] ####[facility]ORATORYCLIA [id number] [address] NEUT%, CSF 11 % High 0-3 [facility] Comment on above: Order Comment: Speci men Type: CEREBROSPINAL FLUID Performed By: #### 3 4563-7, [id number], [id number] ####[facility] LABORATORYCLIA [id number] [address] OTHER CL%, CSF 4 % Normal [facility] Comment on above: Order Comment: Speci men Type: CEREBROSPINAL FLUID Result Comment: Path review to follow.Corrected result: Previously reported as 10 % on 06/07/2021 at 1:49 PM EST. Performed By: #### 3 4563-7, [id number], [id number] ####[facility]ORATORYCLIA [id number] [address] CSF PATHOLOGIST INTERP (LAB REFLEX ORDER-NO BILL)on 06-07-2021 CSF STAFF REVIEW Negative for maligna nt cells. Rare immature myeloid or ventricular lining cells. Normal [facility] Comment on above: Order Comment: Speci men Type: CEREBROSPINAL FLUID Performed By: #### 3 4563-7, [id number], [id number] ####[facility] LABORATORYCLIA [id number] [address] Pathologist name Reviewed by Eloise rebolledo MD Normal [facility] Comment on above: Order Comment: Speci men Type: CEREBROSPINAL FLUID Performed By: #### 3 4563-7, [id number], XPS0064 ####[facility] LABORATORYCLIA [id number] [address] BRAIN WO IVCONon 06-07-19 CT BRAIN WO IVCON Normal [facility] CT BRAIN WO IVCON Normal [facility] Cell count panel (CSF)on Clarity (CSF) Clear Normal Clear [facility] Comment on above: Order Comment: Speci men Type: CEREBROSPINAL FLUID Performed By: #### 3 4563-7, [id number], [id number] ####[facility]ORATORYCLIA [id number] [address] Clarity (Unsp spec) Not Indicated Normal Clear [facility] Comment on above: Order Comment: Speci men Type: CEREBROSPINAL FLUID Performed By: #### 3 4563-7, FDH6833, BJN3539 ####[facility]ORATORYCLIA [id number] [address] Color (CSF) Colorless Normal Colorless [facility] Comment on above: Order Comment: Speci men Type: CEREBROSPINAL FLUID Performed By: #### 3 4563-7, FMG3364, OLM3971 ####[facility]ORATORYCLIA [id number] [address] Color (Spun CSF) Not Indicated Normal Colorless [facility] Comment on above: Order Comment: Speci men Type: CEREBROSPINAL FLUID Performed By: #### 3 4563-7, [id number], [id number] ####[facility]ORATORYCLIA [id number] [address] CSF TUBE NUMBER [employer] Container Normal [facility] Comment on above: Order Comment: Speci men Type: CEREBROSPINAL FLUID Performed By: #### 3 4563-7, [id number], ABE5684 ####[facility]ORATORYCLIA [id number] [address] RBC Manual cnt (CSF) [#/Vol] 42 cells/uL High 0-5 [facility] Comment on above: Order Comment: Speci men Type: CEREBROSPINAL FLUID Performed By: #### 3 4563-7, NVW4530, [id number] ####[facility]ORATORYCLIA [id number] [address] WBC Manual cnt (CSF) [#/Vol] 1 cells/uL Normal 0-5 [facility] Comment on above: Order Comment: Speci men Type: CEREBROSPINAL FLUID Performed By: #### 3 4563-7, [id number], HYL1725 ####[facility]ORATORYCLIA [id number] [place] [address] [place] Glucose CSF-mCncon 2 [...] Glucose HK (GLUC3) [package insert V 12.0 Cuban]. [employer], [place], [place]. September 2015. 2. Michelle Moore, Loki H. (2015). Chapter 7: Glucose and Lactate. Marianela Rothman.(eds.), Cerebrospinal Fluid in Clinical Neurology. [place]: [employer]. Performed By: #### 2 880-3, 2342-4 ####[facility]ORATORYCLIA [id number] [address] [place] Lactate (Bld) [Moles/Vol]on 06-07-2021 Lactate [Moles/Vol] 0.9 mmol/L Normal 0.5-2.2 [facility] Comment on above: Order Comment: Speci men Type: BLOOD SPECIMEN Performed By: #### 3 2693-4 ####[facility]ORATORYCLIA [id number] [address] [place] Lipase SerPl-cCncon 06-07-19 22 Lipase [Catalytic activity/Vol] 35 U/L Normal 16-61 [facility] Comment on above: Order Comment: Speci men Type: BLOOD SPECIMEN Performed By: #### 3 040-3, PROCAL ####[facility] LABORATORYCLIA [id number] [address] [place] Magnesium SerPl-ncon 06-07 Magnesium [Mass/Vol] 2.7 mg/dL High 1.7-2.3 [facility] Comment on above: Order Comment: Speci men Type: BLOOD SPECIMEN Performed By: #### 1 9123-9, 2777-1, 67138-3 ####[facility]ORATORYCLIA [id number] [address] PROCALCITONIN (LAB)on 2021 Procalcitonin [Mass/Vol] 0.13 ng/mL High <0.09 [facility] Comment on above: Order Comment: Speci men Type: BLOOD SPECIMEN Result Comment: For a guided interpretation of test results, please visit the Change in Procalcitonin Calculator, [email or web address]. Performed By: #### 3 040-3, PROCAL ####[facility] LABORATORYCLIA [id number] [address] Phosphate SerPl-ncon 06-07 Phosphate [Mass/Vol] 1.9 mg/dL Low 2.7-4.8 [facility] Comment on above: Order Comment: Speci men Type: BLOOD SPECIMEN Performed By: #### 1 9123-9, 2777-1, 82343-7 ####[facility]ORATORYCLIA [id number] [address] Prot CSF-ncon 06-07-2021 Protein (CSF) [Mass/Vol] 33 mg/dL Normal 15-45 [facility] Comment on above: Order Comment: Speci men Type: CEREBROSPINAL FLUID Performed By: #### 2 880-3, 2342-4 ####[facility] LABORATORYCLIA [id number] [address] OF [facility] SARS-CoV-2 RNA Resp Ql MEGAN+p robeon 06-07-2021 SARS-CoV-2 (COVID-19) RNA MEGAN+probe Ql (Resp) COVID 19 RESULT: SARS-CoV-2 (Agent of COVID-19) Not Detected by PCR. This test has been authorized by FDA under an Emergency Use Authorization (EUA). Normal [facility] Comment on above: Performed By: #### 9 4500-6 ####[facility] LABORATORYCLIA [id number] [address] TYPE AND SCREENon 06-07-2021 ABO O Normal [facility] Comment on above: Order Comment: Speci men Type: BLOOD SPECIMEN Performed By: #### T SCR ####[facility] BLOOD BANKCLIA [id number] [address] HISTORICAL AB SCR STATUS Negative Normal [facility] Comment on above: Order Comment: Speci men Type: BLOOD SPECIMEN Performed By: #### T SCR ####[facility]LO[facility] BANKCLIA [id number] [address] Rh Nom (Bld) Positive Normal [facility] Comment on above: Order Comment: Speci men Type: BLOOD SPECIMEN Performed By: #### T SCR ####[facility] BLO[facility] BANKCLIA [id number] [address] TYPE AND SCREEN EXPIRATION 06/10/2021 23:59 Normal [facility] Comment on above: Order Comment: Speci men Type: BLOOD SPECIMEN Performed By: #### T SCR ####[facility] BLO[facility] BANKCLIA [id number] [address] Vancomycin random [Mass/Vol] on 06-07-2021 [...] #### 4 091-5 ####[facility] LABORATORYCLIA [id number] [address] XR CHEST 1V FRONTAL PORTon 0 06-07-2021 XR CHEST 1V FRONTAL PORT Normal [facility] Basic metabolic 2000 panelon 06-06-2021 Anion gap [Moles/Vol] 11 mmol/L Normal 9-18 [facility] Comment on above: Order Comment: Speci men Type: BLOOD SPECIMEN Performed By: #### 2 4321-2, , 2776-05 ####[facility] LABORATORYCLIA [id number] [place], [place] [address] [place] [address] [place] Calcium [Mass/Vol] 8.6 mg/dL Normal 8.5-10.2 [facility] Comment on above: Order Comment: Speci men Type: BLOOD SPECIMEN Performed By: #### 2 4321-2, , 2776-05 ####[facility] LABORATORYCLIA [id number] [address] STATES OF [facility] Chloride [Moles/Vol] 108 mmol/L High 97-105 [facility] Comment on above: Order Comment: Speci men Type: BLOOD SPECIMEN Performed By: #### 2 4321-2, , 2776-05 ####[facility] LABORATORYCLIA [id number] [address] [place] CO2 [Moles/Vol] 25 mmol/L Normal 22-30 [facility] Comment on above: Order Comment: Speci men Type: BLOOD SPECIMEN Performed By: #### 2 4321-2, , 2776-05 ####[facility] LABORATORYCLIA [id number] [address] [place] Creatinine [Mass/Vol] 0.76 mg/dL Normal 0.73-1.22 [facility] Comment on above: Order Comment: Speci men Type: BLOOD SPECIMEN Performed By: #### 2 4321-2, , 2776-05 ####[facility] LABORATORYCLIA [id number] [address] [place] GFR/1.73 sq M.predicted [...] has been calibrated to be traceable to IDUT. An eGFR <60 mL/min/1.73m2 for >3 months is consistent with chronic kidney disease. Refer to KDOQI guidelines for clinical interpretation. In patients with unstable renal function, e.g. those with acute kidney injury, the eGFR may not accurately reflect actual GFR. Performed By: #### 2 1-2, , 2776-05 ####[facility] LABORATORYCLIA [id number] [place] [address] [place] Glucose [Mass/Vol] 116 mg/dL High 74-99 [facility] Comment on above: Order Comment: Speci men Type: BLOOD SPECIMEN Result Comment: The [place] [employer] (ADA) provides guidance for cutoff [...] Standards of Medical Care in Diabetes 2016, [employer] [place] [employer]. Diabetes Care. 2016.39(Suppl 1). Performed By: #### 2 4320-2, , 2776-05 ####[facility] LABORATORYCLIA [id number] [address] [place] Potassium [Moles/Vol] 3.5 mmol/L Low 3.7-5.1 [facility] Comment on above: Order Comment: Speci men Type: BLOOD SPECIMEN Performed By: #### 2 4320-2, , 2776-05 ####[facility] LABORATORYCLIA [id number] [address] [place] Sodium [Moles/Vol] 144 mmol/L Normal 136-144 [facility] Comment on above: Order Comment: Speci men Type: BLOOD SPECIMEN Performed By: #### 2 4321-2, , 2776-05 ####[facility] LABORATORYCLIA [id number] [address] STATES [facility] Urea nitrogen [Mass/Vol] 31 mg/dL High 9-24 [facility] Comment on above: Order Comment: Speci men Type: BLOOD SPECIMEN Performed By: #### 2 4321-2, 90943-6, 2776-05 ####[facility] LABORATORYCLIA [id number] [address] CASE MANAGEMon 06-06-2021 CASE MANAGEM Normal [facility] CBC panel Auto (Bld)on 06-06 Erythrocyte distribution width (RBC) [Ratio] 15.8 % High 11.5-15.0 [facility] Comment on above: Order Comment: Speci men Type: BLOOD SPECIMEN Performed By: #### 5 8410-2 ####[facility] LABORATORYCLIA [id number] [address] Hematocrit (Bld) [Volume fraction] 39.5 % Normal 39.0-51.0 [facility] Comment on above: Order Comment: Speci men Type: BLOOD SPECIMEN Performed By: #### 5 8410-2 ####[facility] LABORATORYCLIA [id number] [address] Hemoglobin (Bld) [Mass/Vol] 12.2 g/dL Low 13.0-17.0 [facility] Comment on above: Order Comment: Speci men Type: BLOOD SPECIMEN Performed By: #### 5 8410-2 ####[facility] LABORATORYCLIA [id number] [address] MCH (RBC) [Entitic mass] 27.8 pg Normal 26.0-34.0 [facility] Comment on above: Order Comment: Speci men Type: BLOOD SPECIMEN Performed By: #### 5 8410-2 ####[facility] LABORATORYCLIA [id number] [address] MCHC (RBC) [Mass/Vol] 30.9 g/dL Normal 30.5-36.0 [facility] Comment on above: Order Comment: Speci men Type: BLOOD SPECIMEN Performed By: #### 5 8410-2 ####[facility] LABORATORYCLIA [id number] [address] MCV (RBC) [Entitic vol] 90.0 fL Normal 80.0-100.0 [facility] Comment on above: Order Comment: Speci men Type: BLOOD SPECIMEN Performed By: #### 5 8410-2 ####[facility] LABORATORYCLIA [id number] [address] Nucleated RBC (Bld) [#/Vol] 10*3/uL Normal <0.01 [facility] Comment on above: Order Comment: Speci men Type: BLOOD SPECIMEN Performed By: #### 5 8410-2 ####[facility] LABORATORYCLIA [id number] [address] Platelet mean volume (Bld) [Entitic vol] 10.4 fL Normal 9.0-12.7 [facility] Comment on above: Order Comment: Speci men Type: BLOOD SPECIMEN Performed By: #### 5 8410-2 ####[facility] LABORATORYCLIA [id number] [address] Platelets (Bld) [#/Vol] 236 10*3/uL Normal 150-400 [facility] Comment on above: Order Comment: Speci men Type: BLOOD SPECIMEN Performed By: #### 5 8410-2 ####[facility] LABORATORYCLIA [id number] [address] RBC (Bld) [#/Vol] 4.39 10*6/uL Normal 4.20-6.00 [facility] Comment on above: Order Comment: Speci men Type: BLOOD SPECIMEN Performed By: #### 5 8410-2 ####[facility] LABORATORYCLIA [id number] [address] WBC (Bld) [#/Vol] 9.74 10*3/uL Normal 3.70-11.00 [facility] Comment on above: Order Comment: Speci men Type: BLOOD SPECIMEN Performed By: #### 5 8410-2 ####[facility] LABORATORYCLIA [id number] [place] [id number] [facility] CONSULT PROGon 06-06-2021 CONSULT PROG Normal [facility] CONSULT PROG Normal [facility] Magnesium SerPl-mCncon 06-06 Magnesium [Mass/Vol] 2.5 mg/dL High 1.7-2.3 [facility] Comment on above: Order Comment: Speci men Type: BLOOD SPECIMEN Performed By: #### 2 4321-2, 08402-5, 2777-1 ####[facility] LABORATORYCLIA [id number] [address] PT panel Coag (PPP)on 2021 INR Coag (PPP) [Relative time] 1.0 {INR} Normal 0.9-1.3 [facility] Comment on above: Order Comment: Speci men Type: BLOOD SPECIMEN Result Comment: Yris min K Antagonist (VKA) Therapeutic Range: INR 2 to 3 (Target INR of 2.5)Note: For patients treated with VKA drugs, such as warfarin, the [employer] [place] [employer] 2012 Guideline recommends [...] al. Chest 2012, 141:7S-47SAlba MURRY, et al. [employer] 2017, 70: 252-289 Performed By: #### 3 4528-0, 94979-7 ####[facility] LABORATORYCLIA [id number] [address] PT Coag (PPP) [Time] 11.4 s Normal 9.7-13.0 [facility] Comment on above: Order Comment: Speci men Type: BLOOD SPECIMEN Performed By: #### 3 4528-0, 59865-4 ####[facility] LABORATORYCLIA [id number] [address] Phosphate SerPl-mCncon 06-06 Phosphate [Mass/Vol] 2.3 mg/dL Low 2.7-4.8 [facility] Comment on above: Order Comment: Speci men Type: BLOOD SPECIMEN Performed By: #### 2 4321-2, 22796-4, 2777-1 ####[facility] LABORATORYCLIA [id number] [address] THROMBOGRAPH HEPARINASE PANE Kiel 06-06-2021 Clot angle after addition of heparinase TEG (Bld) [Angle] 70.2 degrees Normal 47.0-74.0 [facility] Comment on above: Order Comment: Speci men Type: BLOOD SPECIMEN Performed By: #### T EGHPP ####[facility] LABORATORYCLIA [id number] [address] Clot Lysis 30 Min post maximum clot amplitude TEG (Bld) [Length fraction] 0.0 % Normal 0.0-8.0 [facility] Comment on above: Order Comment: Speci men Type: BLOOD SPECIMEN Performed By: #### T EGHPP ####[facility] LABORATORYCLIA [id number] [address] Clotting time after addition of heparinase TEG (Bld) 5.7 minutes Normal 4.0-10.0 [facility] Comment on above: Order Comment: Speci men Type: BLOOD SPECIMEN Performed By: #### T EGHPP ####[facility] LABORATORYCLIA [id number] [address] Coagulation index TEG Qn (Bld) 1.2 Normal -4.6-3.2 [facility] Comment on above: Order Comment: Speci men Type: BLOOD SPECIMEN Result Comment: The Coagulation Index, a secondary parameter, is labeled by the lab support tech as for research use only and is used per the lab support tech's instructions. Its performance characteristics were determined by [facility]'s [facility] [place] in a manner consistent with CLIA requirements. This test has not been cleared by the [place] Food and Drug Administration. Performed By: #### T EGHPP ####[facility] LABORATORYCLIA [id number] [address] Maximum clot firmness after addition of heparinase TEG (Bld) [Length] 64.0 mm Normal 51.0-75.0 [facility] Comment on above: Order Comment: Speci men Type: BLOOD SPECIMEN Performed By: #### T EGHPP ####[facility]ORATORYCLIA [id number] [address] Vancomycin random [Mass/Vol] on 06-06-2021 [...] #### 4 091-5 ####[facility]ORATORYCLIA [id number] [address] STATES [facility] Vancomycin [Mass/Vol] 13.5 ug/mL Normal 10.0-20.0 [facility] Comment on above: Order Comment: Speci men Type: BLOOD SPECIMEN Result Comment: Refe rence ranges and high/low indicator flags are provided as general guidelines only. The treating physician must determine appropriate target levels/dosing based on the specific clinical situation. Performed By: #### 4 091-5 ####[facility]ATORYCLIA [id number] [address] aPTT PPPon 06-06-2021 aPTT Coag (PPP) [Time] 27.8 s Normal 23.0-32.4 [facility] Comment on above: Order Comment: Speci men Type: BLOOD SPECIMEN Performed By: #### 3 4528-0, 37376-8 ####[facility]ATORYCLIA [id number] [address] [place] [facility] Basic metabolic 2000 panelon 06-05-2021 Anion gap [Moles/Vol] 11 mmol/L Normal 9-18 [facility] Comment on above: Order Comment: Speci men Type: BLOOD SPECIMEN Performed By: #### 1 9123-9, 58854-8, 2776- ####[facility]ORYCLIA [id number] [address] [place] [facility] Calcium [Mass/Vol] 8.6 mg/dL Normal 8.5-10.2 [facility] Comment on above: Order Comment: Speci men Type: BLOOD SPECIMEN Performed By: #### 1 9123-9, 54804-7, 2776- ####[facility]ORYCLIA [id number] [address] [place] [facility] Chloride [Moles/Vol] 108 mmol/L High 97-105 [facility] Comment on above: Order Comment: Speci men Type: BLOOD SPECIMEN Performed By: #### 1 9123-9, 27498-5, 2776- ####[facility]ATORYCLIA [id number] [address] [place] CO2 [Moles/Vol] 25 mmol/L Normal 22-30 [facility] Comment on above: Order Comment: Speci men Type: BLOOD SPECIMEN Performed By: #### 1 9123-9, 44341-9, 2776- ####[facility]ORYCLIA [id number] [address] [place] Creatinine [Mass/Vol] 0.77 mg/dL Normal 0.73-1.22 [facility] Comment on above: Order Comment: Speci men Type: BLOOD SPECIMEN Performed By: #### 1 9123-9, 83584-8, 2776-05 ####[facility] [id number] [place] [address] [place] GFR/1.73 sq M.predicted [...] actual GFR. Performed By: #### 1 9123-9, 53807-5, 2776-05 ####[facility]ITALIA [id number] [place] [address] [place] Glucose [Mass/Vol] 96 mg/dL Normal 74-99 [facility] Comment on above: Order Comment: Speci men Type: BLOOD SPECIMEN Result Comment: The [employer] [place] [employer] (ADA) provides guidance for cutoff [...] Standards of Medical Care in Diabetes 2016, [employer] [place] [employer]. Diabetes Care. 2016.39(Suppl 1). Performed By: #### 1 9123-9, 59058-9, 2776-05 ####[facility]ATORYCLIA [id number] [address] [place] [facility] Potassium [Moles/Vol] 3.9 mmol/L Normal 3.7-5.1 [facility] Comment on above: Order Comment: Speci men Type: BLOOD SPECIMEN Performed By: #### 1 9123-9, 47356-2, 2777-1 ####[facility]ATORYCLIA [id number] [address] Sodium [Moles/Vol] 144 mmol/L Normal 136-144 [facility] Comment on above: Order Comment: Speci men Type: BLOOD SPECIMEN Performed By: #### 1 9123-9, 17894-9, 2777-1 ####[facility]ATORYCLIA [id number] [address] Urea nitrogen [Mass/Vol] 26 mg/dL High 9-24 [facility] Comment on above: Order Comment: Speci men Type: BLOOD SPECIMEN Performed By: #### 1 9123-9, 26138-1, 2776- ####[facility]ATORYCLIA [id number] [address] CBC panel Auto (Bld)on 06-05 Erythrocyte distribution width (RBC) [Ratio] 15.9 % High 11.5-15.0 [facility] Comment on above: Order Comment: Speci men Type: BLOOD SPECIMEN Performed By: #### 5 8410-2 ####[facility]ATORYCLIA [id number] [address] Hematocrit (Bld) [Volume fraction] 39.6 % Normal 39.0-51.0 [facility] Comment on above: Order Comment: Speci men Type: BLOOD SPECIMEN Performed By: #### 5 8410-2 ####[facility]ATORYCLIA [id number] [address] [place] [facility] Hemoglobin (Bld) [Mass/Vol] 12.3 g/dL Low 13.0-17.0 [facility] Comment on above: Order Comment: Speci men Type: BLOOD SPECIMEN Performed By: #### 5 8410-2 ####[facility]ATORYCLIA [id number] [address] MCH (RBC) [Entitic mass] 28.1 pg Normal 26.0-34.0 [facility] Comment on above: Order Comment: Speci men Type: BLOOD SPECIMEN Performed By: #### 5 8410-2 ####[facility]ATORYCLIA [id number] [address] MCHC (RBC) [Mass/Vol] 31.1 g/dL Normal 30.5-36.0 [facility] Comment on above: Order Comment: Speci men Type: BLOOD SPECIMEN Performed By: #### 5 8410-2 ####[facility]ATORYCLIA [id number] [address] MCV (RBC) [Entitic vol] 90.4 fL Normal 80.0-100.0 [facility] Comment on above: Order Comment: Speci men Type: BLOOD SPECIMEN Performed By: #### 5 8410-2 ####[facility]ATORYCLIA [id number] [address] Nucleated RBC (Bld) [#/Vol] 10*3/uL Normal <0.01 [facility] Comment on above: Order Comment: Speci men Type: BLOOD SPECIMEN Performed By: #### 5 8410-2 ####[facility]ATORYCLIA [id number] [address] Platelet mean volume (Bld) [Entitic vol] 10.5 fL Normal 9.0-12.7 [facility] Comment on above: Order Comment: Speci men Type: BLOOD SPECIMEN Performed By: #### 5 8410-2 ####[facility]ATORYCLIA [id number] [address] Platelets (Bld) [#/Vol] 224 10*3/uL Normal 150-400 [facility] Comment on above: Order Comment: Speci men Type: BLOOD SPECIMEN Performed By: #### 5 8410-2 ####[facility]ATORYCLIA [id number] [address] [place] [facility] RBC (Bld) [#/Vol] 4.38 10*6/uL Normal 4.20-6.00 [facility] Comment on above: Order Comment: Speci men Type: BLOOD SPECIMEN Performed By: #### 5 8410-2 ####[facility]ATORYCLIA [id number] [address] WBC (Bld) [#/Vol] 9.66 10*3/uL Normal 3.70-11.00 [facility] Comment on above: Order Comment: Speci men Type: BLOOD SPECIMEN Performed By: #### 5 8410-2 ####[facility]ATORYCLIA [id number] [address] CONSULT PROGon 06-05-2021 CONSULT PROG Normal [facility] Gas and Carbon monoxide pane l (BldV)on 06-05-2021 Base excess Calc (BldV) [Moles/Vol] 1.8 mmol/L Normal 0-2 [facility] Comment on above: Order Comment: Speci men Type: VENOUS BLOOD SPECIMEN Performed By: #### 2 4344-4 ####[facility]ATORYCLIA [id number] [address] Body temperature 100.4 [degF] Normal [facility] Comment on above: Order Comment: Speci men Type: VENOUS BLOOD SPECIMEN Performed By: #### 2 4344-4 ####[facility]ATORYCLIA [id number] [address] CALCIUM IONIZED, PH CORRECTED 1.21 mmol/L Normal 1.08-1.30 [facility] Comment on above: Order Comment: Speci men Type: VENOUS BLOOD SPECIMEN Performed By: #### 2 4344-4 ####[facility]ATORYCLIA [id number] [address] Calcium.ionized (BldV) [Mass/Vol] 1.19 mmol/L Normal 1.08-1.30 [facility] Comment on above: Order Comment: Speci men Type: VENOUS BLOOD SPECIMEN Performed By: #### 2 4344-4 ####[facility]ATORYCLIA [id number] [address] Carboxyhemoglobin (BldV) [Mass fraction] 1.0 % Normal 0.0-2.0 [facility] Comment on above: Order Comment: Speci men Type: VENOUS BLOOD SPECIMEN Result Comment: Carb oxyhemoglobin Reference Range for Smokers: 2.0-8.0% Performed By: #### 2 4344-4 ####[facility]ATORYCLIA [id number] [address] CO2 (BldV) [Partial pressure] 41 mm[Hg] Low 42-55 [facility] Comment on above: Order Comment: Speci men Type: VENOUS BLOOD SPECIMEN Performed By: #### 2 4344-4 ####[facility]ATORYCLIA [id number] [address] CO2 [Moles/Vol] 23.4 mmol/L Low 25-29 [facility] Comment on above: Order Comment: Speci men Type: VENOUS BLOOD SPECIMEN Performed By: #### 2 4344-4 ####[facility]ATORYCLIA [id number] [address] CO2 adjusted to patient's actual temperature (BldV) [Partial pressure] 43 mmHg Normal 42-55 [facility] Comment on above: Order Comment: Speci men Type: VENOUS BLOOD SPECIMEN Performed By: #### 2 4344-4 ####[facility]ATORYCLIA [id number] [address] Glucose [Mass/Vol] 101 mg/dL Normal 60-105 [facility] Comment on above: Order Comment: Speci men Type: VENOUS BLOOD SPECIMEN Performed By: #### 2 4344-4 ####[facility]ORYCLIA [id number] [address] STATES [facility] HCO3 (Bld) [Moles/Vol] 26.0 mmol/L Normal 24-28 [facility] Comment on above: Order Comment: Speci men Type: VENOUS BLOOD SPECIMEN Performed By: #### 2 4344-4 ####[facility]ATORYCLIA [id number] [place], [place] [id number] [place] [address] [facility] Hematocrit (Bld) [Volume fraction] 38.4 % Low 39.0-51.0 [facility] Comment on above: Order Comment: Speci men Type: VENOUS BLOOD SPECIMEN Performed By: #### 2 4344-4 ####[facility]ORYCLIA [id number] [address] Hemoglobin (Bld) [Mass/Vol] 12.5 g/dL Low 13.0-17.0 [facility] Comment on above: Order Comment: Speci men Type: VENOUS BLOOD SPECIMEN Performed By: #### 2 4344-4 ####[facility]ORYCLIA [id number] [address] Methemoglobin (Bld) [Mass fraction] % Normal 0.0-1.5 [facility] Comment on above: Order Comment: Speci men Type: VENOUS BLOOD SPECIMEN Performed By: #### 2 4344-4 ####[facility]ATORYCLIA [id number] [address] [place] O2 THERAPY Ventilator Normal [facility] Comment on above: Order Comment: Speci men Type: VENOUS BLOOD SPECIMEN Performed By: #### 2 4344-4 ####[facility]ORATORYCLIA [id number] [place], [place] [id number] [place] [address] Oxygen (BldV) [Partial pressure] 44 mm[Hg] Normal 35-45 [facility] Comment on above: Order Comment: Speci men Type: VENOUS BLOOD SPECIMEN Performed By: #### 2 4344-4 ####[facility]ORYCLIA [id number] [address] Oxygen adjusted to patient's actual temperature (BldV) [Partial pressure] 46.8 mmHg High 35-45 [facility] Comment on above: Order Comment: Speci men Type: VENOUS BLOOD SPECIMEN Performed By: #### 2 4344-4 ####[facility]ORYCLIA [id number] [address] Oxygen saturation in Blood 76.5 % Normal 60-85 [facility] Comment on above: Order Comment: Speci men Type: VENOUS BLOOD SPECIMEN Performed By: #### 2 4344-4 ####[facility]ORYCLIA [id number] [address] Oxyhemoglobin (BldV) [Mass fraction] 75 % Normal 60-85 [facility] Comment on above: Order Comment: Speci men Type: VENOUS BLOOD SPECIMEN Performed By: #### 2 4344-4 ####[facility]ORYCLIA [id number] [address] OF [facility] pH (BldV) 7.42 [pH] Normal 7.32-7.42 [facility] Comment on above: Order Comment: Speci men Type: VENOUS BLOOD SPECIMEN Performed By: #### 2 4344-4 ####[facility]ORYCLIA [id number] [address] pH adjusted to patient's actual temperature (BldV) 7.40 Normal 7.32-7.42 [facility] Comment on above: Order Comment: Speci men Type: VENOUS BLOOD SPECIMEN Performed By: #### 2 4344-4 ####[facility]ORYCLIA [id number] [address] [place] Potassium [Moles/Vol] 3.7 mmol/L Normal 3.5-5.0 [facility] Comment on above: Order Comment: Speci men Type: VENOUS BLOOD SPECIMEN Performed By: #### 2 4344-4 ####[facility]ORYCLIA [id number] [address] [place] Sodium [Moles/Vol] 141 mmol/L Normal 136-144 [facility] Comment on above: Order Comment: Speci men Type: VENOUS BLOOD SPECIMEN Performed By: #### 2 4344-4 ####[facility]ATORYCLIA [id number] [address] [place] Magnesium SerPl-mCncon 06-05 Magnesium [Mass/Vol] 2.3 mg/dL Normal 1.7-2.3 [facility] Comment on above: Order Comment: Speci men Type: BLOOD SPECIMEN Performed By: #### 1 9123-9, 71464-4, 2777-1 ####[facility]ATORYCLIA [id number] [address] [place] Phosphate SerPl-mCncon 06-05 Phosphate [Mass/Vol] 2.9 mg/dL Normal 2.7-4.8 [facility] Comment on above: Order Comment: Speci men Type: BLOOD SPECIMEN Performed By: #### 1 9123-9, 63963-0, 2777-1 ####[facility]ATORYCLIA [id number] [address] [place] [facility] Vancomycin random [Mass/Vol] on 06-05-2021 Vancomycin [Mass/Vol] 23.2 ug/mL High 10.0-20.0 [facility] Comment on above: Order Comment: Speci men Type: BLOOD SPECIMEN Result Comment: Refe rence ranges and high/low indicator flags are provided as general guidelines only. The treating physician must determine appropriate target levels/dosing based on the specific clinical situation. Performed By: #### 4 091-5 ####[facility]ORATORYCLIA [id number] [place] [id number] [place] (1,3)-R-F-ZIGQFRuy 2 (1,3) B-D GLUCAN <31 Normal <60 [facility] Comment on above: Order Comment: Speci men Type: BLOOD SPECIMEN Performed By: #### B DGLUC ####[facility] LABCLIA [id number] [id number] [address] [place] (1,3) B-D GLUCAN, QUAL Negative Normal NEGAT [facility] Comment on above: Order Comment: Speci men Type: BLOOD SPECIMEN Result Comment: Cert ain fungi, such as the genus Cryptococcus which produces very low levels of (1,3)-kcuv-D-uozreg, may not result in serum (1,3)-kjoy-P-zhcspo sufficiently elevated so as to be detected by the assay. Infections with fungi of the order Mucorales such as Absidia, Mucor and Rhizopus which are not known to produce (1,3)-elrz-X-vwrrge, are also observed to yield low serum (1,3)-fcwc-Q-fzhise titers.In addition, the yeast phase of Blastomyces dermatitidis produces little (1,3)-nflg-J-tyehcf and may not be detected by the assay. Performed By: #### B DGLUC ####[facility]FER[facility] LABCLIA [id number] [facility] [id number] [address] [place] ALLIED HEALTHon 06-04-2021 ALLIED HEALTH Normal [facility] ALLIED HEALTH Normal [facility] ARTERIAL BLOOD GASESon 06-04 Base excess Calc (Bld) [Moles/Vol] 3 mmol/L High 0-2 [facility] Comment on above: Order Comment: Speci men Type: ARTERIAL BLOOD SPECIMEN Performed By: #### A LLBG ####[facility]ORATORYCLIA [id number] [address] [place] Body temperature 98.06 [degF] Normal [facility] Comment on above: Order Comment: Speci men Type: ARTERIAL BLOOD SPECIMEN Performed By: #### A LLBG ####[facility]ORATORYCLIA [id number] [address] [place] CALCIUM IONIZED, PH CORRECTED 1.19 mmol/L Normal 1.08-1.30 [facility] Comment on above: Order Comment: Speci men Type: ARTERIAL BLOOD SPECIMEN Performed By: #### A LLBG ####[facility]ORATORYCLIA [id number] [place] [address] [place] Calcium.ionized (BldV) [Mass/Vol] 1.14 mmol/L Normal 1.08-1.30 [facility] Comment on above: Order Comment: Speci men Type: ARTERIAL BLOOD SPECIMEN Performed By: #### A LLBG ####[facility]ATORYCLIA [id number] [address] [facility] Carboxyhemoglobin (BldA) [Mass fraction] 1.2 % Normal 0.0-2.0 [facility] Comment on above: Order Comment: Speci men Type: ARTERIAL BLOOD SPECIMEN Result Comment: Carb oxyhemoglobin Reference Range for Smokers: 2.0-8.0% Performed By: #### A LLBG ####[facility]ATORYCLIA [id number] [address] CO2 (Bld) [Partial pressure] 35 mm Hg Low 36-46 [facility] Comment on above: Order Comment: Speci men Type: ARTERIAL BLOOD SPECIMEN Performed By: #### A LLBG ####[facility]ORYCLIA [id number] [address] [place] CO2 [Moles/Vol] 23.2 mmol/L Normal 22-28 [facility] Comment on above: Order Comment: Speci men Type: ARTERIAL BLOOD SPECIMEN Performed By: #### A LLBG ####[facility]ORYCLIA [id number] [address] CO2 adjusted to patient's actual temperature (Bld) [Partial pressure] 34 mmHg Low 36-46 [facility] Comment on above: Order Comment: Speci men Type: ARTERIAL BLOOD SPECIMEN Performed By: #### A LLBG ####[facility]ATORYCLIA [id number] [address] [place] Glucose [Mass/Vol] 115 mg/dL High 60-105 [facility] Comment on above: Order Comment: Speci men Type: ARTERIAL BLOOD SPECIMEN Performed By: #### A LLBG ####[facility]ORYCLIA [id number] [address] [place] HCO3 (Bld) [Moles/Vol] 26 mmol/L Normal 22-26 [facility] Comment on above: Order Comment: Speci men Type: ARTERIAL BLOOD SPECIMEN Performed By: #### A LLBG ####[facility]ORYCLIA [id number] [address] Hematocrit (Bld) [Volume fraction] 35.3 % Low 39.0-51.0 [facility] Comment on above: Order Comment: Speci men Type: ARTERIAL BLOOD SPECIMEN Performed By: #### A LLBG ####[facility]ORYCLIA [id number] [address] [facility] Hemoglobin (Bld) [Mass/Vol] 11.5 g/dL Low 13.0-17.0 [facility] Comment on above: Order Comment: Speci men Type: ARTERIAL BLOOD SPECIMEN Performed By: #### A LLBG ####[facility]ATORYCLIA [id number] [address] Methemoglobin (Bld) [Mass fraction] % Normal 0.0-1.5 [facility] Comment on above: Order Comment: Speci men Type: ARTERIAL BLOOD SPECIMEN Performed By: #### A LLBG ####[facility]ATORYCLIA [id number] [address] O2 THERAPY Ventilator Normal [facility] Comment on above: Order Comment: Speci men Type: ARTERIAL BLOOD SPECIMEN Performed By: #### A LLBG ####[facility]ORYCLIA [id number] [address] Oxygen (Bld) [Partial pressure] 66 mm Hg Low 85-95 [facility] Comment on above: Order Comment: Speci men Type: ARTERIAL BLOOD SPECIMEN Performed By: #### A LLBG ####[facility]ORYCLIA [id number] [address] Oxygen adjusted to patient's actual temperature (Bld) [Partial pressure] 64.3 mmHg Low 85-95 [facility] Comment on above: Order Comment: Speci men Type: ARTERIAL BLOOD SPECIMEN Performed By: #### A LLBG ####[facility]ATORYCLIA [id number] [address] OXYGEN SATURATION, ARTERIAL 95 % Normal 95-98 [facility] Comment on above: Order Comment: Speci men Type: ARTERIAL BLOOD SPECIMEN Performed By: #### A LLBG ####[facility]ATORYCLIA [id number] [address] Oxyhemoglobin (BldA) [Mass fraction] 93 % Low 95-98 [facility] Comment on above: Order Comment: Speci men Type: ARTERIAL BLOOD SPECIMEN Performed By: #### A LLBG ####[facility]ORATORYCLIA [id number] [address] pH (Bld) 7.49 [pH] High 7.35-7.45 [facility] Comment on above: Order Comment: Speci men Type: ARTERIAL BLOOD SPECIMEN Performed By: #### A LLBG ####[facility]ATORYCLIA [id number] [address] pH adjusted to patient's actual temperature (Bld) 7.49 High 7.35-7.45 [facility] Comment on above: Order Comment: Speci men Type: ARTERIAL BLOOD SPECIMEN Performed By: #### A LLBG ####[facility]ATORYCLIA [id number] [address] Potassium [Moles/Vol] 2.8 mmol/L Low 3.5-5.0 [facility] Comment on above: Order Comment: Speci men Type: ARTERIAL BLOOD SPECIMEN Performed By: #### A LLBG ####[facility]ORYCLIA [id number] [address] Bas Metab 2000 Pnl SerPlon 0 06-04-2021 Sodium [Moles/Vol] 143 mmol/L Normal 136-144 [facility] Comment on above: Order Comment: Speci men Type: BLOOD SPECIMEN Performed By: #### 2 777-1, 55347-5, ####[facility]ATORYCLIA [id number] [place], [place] [id number] [place] [address] Order Comment: Speci men Type: ARTERIAL BLOOD SPECIMEN Performed By: #### A LLBG ####[facility]ORATORYCLIA [id number] [place] [address] [facility] Basic metabolic 2000 panelon 06-04-2021 Anion gap [Moles/Vol] 11 mmol/L Normal 9-18 [facility] Comment on above: Order Comment: Speci men Type: BLOOD SPECIMEN Performed By: #### 2 777-1, , ####[facility]ATORYCLIA [id number] [address] STATES [facility] Calcium [Mass/Vol] 8.5 mg/dL Normal 8.5-10.2 [facility] Comment on above: Order Comment: Speci men Type: BLOOD SPECIMEN Performed By: #### 2 777-1, , ####[facility]ATORYCLIA [id number] [address] [place] Chloride [Moles/Vol] 107 mmol/L High 97-105 [facility] Comment on above: Order Comment: Speci men Type: BLOOD SPECIMEN Performed By: #### 2 777-1, , ####[facility]ATORYCLIA [id number] [place], [place] [id number] [place] [address] [place] CO2 [Moles/Vol] 25 mmol/L Normal 22-30 [facility] Comment on above: Order Comment: Speci men Type: BLOOD SPECIMEN Performed By: #### 2 777-1, , ####[facility]ATORYCLIA [id number] [place], [place] [id number] [place] [address] [place] Creatinine [Mass/Vol] 0.77 mg/dL Normal 0.73-1.22 [facility] Comment on above: Order Comment: Speci men Type: BLOOD SPECIMEN Performed By: #### 2 777-1, , 47516-6 ####[facility]PITALIA [id number] [place] [address] [place] GFR/1.73 sq M.predicted [...] actual GFR. Performed By: #### 2 777-1, 38076-8, 74047-0 ####[facility]PITALIA [id number] [place] [id number] [place] Glucose [Mass/Vol] 107 mg/dL High 74-99 [facility] Comment on above: Order Comment: Speci men Type: BLOOD SPECIMEN Result Comment: The [place] [employer] (ADA) provides guidance for cutoff [...] Standards of Medical Care in Diabetes 2016, [employer] [place] [employer]. Diabetes Care. 2016.39(Suppl 1). Performed By: #### 2 777-1, 79986-3, 98030-9 ####[facility]ITALIA [id number] [address] Potassium [Moles/Vol] 3.1 mmol/L Low 3.7-5.1 [facility] Comment on above: Order Comment: Speci men Type: BLOOD SPECIMEN Performed By: #### 2 777-1, , 34309-2 ####[facility]ORATORYCLIA [id number] [address] Urea nitrogen [Mass/Vol] 19 mg/dL Normal 9-24 [facility] Comment on above: Order Comment: Speci men Type: BLOOD SPECIMEN Performed By: #### 2 777-1, , 90105-0 ####[facility]ORATORYCLIA [id number] [address] CBC panel Auto (Bld)on 06-04 Erythrocyte distribution width (RBC) [Ratio] 15.8 % High 11.5-15.0 [facility] Comment on above: Order Comment: Speci men Type: BLOOD SPECIMEN Performed By: #### 5 8410-2 ####[facility]ORATORYCLIA [id number] [address] Hematocrit (Bld) [Volume fraction] 36.9 % Low 39.0-51.0 [facility] Comment on above: Order Comment: Speci men Type: BLOOD SPECIMEN Performed By: #### 5 8410-2 ####[facility]ORATORYCLIA [id number] [address] Hemoglobin (Bld) [Mass/Vol] 11.2 g/dL Low 13.0-17.0 [facility] Comment on above: Order Comment: Speci men Type: BLOOD SPECIMEN Performed By: #### 5 8410-2 ####[facility]ATORYCLIA [id number] [address] MCH (RBC) [Entitic mass] 27.3 pg Normal 26.0-34.0 [facility] Comment on above: Order Comment: Speci men Type: BLOOD SPECIMEN Performed By: #### 5 8410-2 ####[facility]ATORYCLIA [id number] [address] MCHC (RBC) [Mass/Vol] 30.4 g/dL Low 30.5-36.0 [facility] Comment on above: Order Comment: Speci men Type: BLOOD SPECIMEN Performed By: #### 5 8410-2 ####[facility]ATORYCLIA [id number] [address] MCV (RBC) [Entitic vol] 89.8 fL Normal 80.0-100.0 [facility] Comment on above: Order Comment: Speci men Type: BLOOD SPECIMEN Performed By: #### 5 8410-2 ####[facility]ATORYCLIA [id number] [address] Nucleated RBC (Bld) [#/Vol] 10*3/uL Normal <0.01 [facility] Comment on above: Order Comment: Speci men Type: BLOOD SPECIMEN Performed By: #### 5 8410-2 ####[facility]ATORYCLIA [id number] [address] Platelet mean volume (Bld) [Entitic vol] 10.7 fL Normal 9.0-12.7 [facility] Comment on above: Order Comment: Speci men Type: BLOOD SPECIMEN Performed By: #### 5 8410-2 ####[facility]ATORYCLIA [id number] [address] Platelets (Bld) [#/Vol] 174 10*3/uL Normal 150-400 [facility] Comment on above: Order Comment: Speci men Type: BLOOD SPECIMEN Performed By: #### 5 8410-2 ####[facility]ATORYCLIA [id number] [address] RBC (Bld) [#/Vol] 4.11 10*6/uL Low 4.20-6.00 [facility] Comment on above: Order Comment: Speci men Type: BLOOD SPECIMEN Performed By: #### 5 8410-2 ####[facility]ATORYCLIA [id number] [address] WBC (Bld) [#/Vol] 8.29 10*3/uL Normal 3.70-11.00 [facility] Comment on above: Order Comment: Speci men Type: BLOOD SPECIMEN Performed By: #### 5 8410-2 ####[facility]ATORYCLIA [id number] [address] CONSULT PROGon 06-04-2021 CONSULT PROG Normal [facility] CT BRAIN WO IVCONon 06-04-19 CT BRAIN WO IVCON Normal [facility] CT CHEST W IVCON PEon 2021 CT CHEST W IVCON PE Normal [facility] Magnesium SerPl-mCncon 06-04 Magnesium [Mass/Vol] 2.2 mg/dL Normal 1.7-2.3 [facility] Comment on above: Order Comment: Speci men Type: BLOOD SPECIMEN Performed By: #### 2 777-1, 93059-4, 67940-5 ####[facility]ATORYCLIA [id number] [address] NT-proBNP SerPl-mCncon 06-04 Natriuretic peptide.B prohormone N-Terminal [Mass/Vol] 229 pg/mL High <125 [facility] Comment on above: Order Comment: Speci men Type: BLOOD SPECIMEN Performed By: #### 3 3762-6, 4091-5 ####[facility]ATORYCLIA [id number] [address] Phosphate SerPl-mCncon 06-04 Phosphate [Mass/Vol] 2.0 mg/dL Low 2.7-4.8 [facility] Comment on above: Order Comment: Speci men Type: BLOOD SPECIMEN Performed By: #### 2 777-1, 78402-9, 46448-4 ####[facility]ATORYCLIA [id number] [address] Vancomycin random [Mass/Vol] on 06-04-2021 [...] 3 3762-6, 4091-5 ####[facility]ATORYCLIA [id number] [address] XR ABDOMEN 1V SUPINEon 06-04 XR ABDOMEN 1V SUPINE Normal [facility] ALLIED HEALTHon 06-03-2021 ALLIED HEALTH Normal [facility] ARTERIAL BLOOD GASESon 06-03 Base excess Calc (Bld) [Moles/Vol] 5 mmol/L High 0-2 [facility] Comment on above: Order Comment: Speci men Type: ARTERIAL BLOOD SPECIMEN Performed By: #### A LLBG ####[facility]ATORYCLIA [id number] [address] Body temperature 99.5 [degF] Normal [facility] Comment on above: Order Comment: Speci men Type: ARTERIAL BLOOD SPECIMEN Performed By: #### A LLBG ####[facility]ATORYCLIA [id number] [address] CALCIUM IONIZED, PH CORRECTED 1.18 mmol/L Normal 1.08-1.30 [facility] Comment on above: Order Comment: Speci men Type: ARTERIAL BLOOD SPECIMEN Performed By: #### A LLBG ####[facility]ATORYCLIA [id number] [address] Calcium.ionized (BldV) [Mass/Vol] 1.16 mmol/L Normal 1.08-1.30 [facility] Comment on above: Order Comment: Speci men Type: ARTERIAL BLOOD SPECIMEN Performed By: #### A LLBG ####[facility]ATORYCLIA [id number] [address] Carboxyhemoglobin (BldA) [Mass fraction] 1.2 % Normal 0.0-2.0 [facility] Comment on above: Order Comment: Speci men Type: ARTERIAL BLOOD SPECIMEN Result Comment: Carb oxyhemoglobin Reference Range for Smokers: 2.0-8.0% Performed By: #### A LLBG ####[facility]ATORYCLIA [id number] [address] CO2 (Bld) [Partial pressure] 45 mm Hg Normal 36-46 [facility] Comment on above: Order Comment: Speci men Type: ARTERIAL BLOOD SPECIMEN Performed By: #### A LLBG ####[facility]ATORYCLIA [id number] [address] CO2 [Moles/Vol] 26.9 mmol/L Normal 22-28 [facility] Comment on above: Order Comment: Speci men Type: ARTERIAL BLOOD SPECIMEN Performed By: #### A LLBG ####[facility]ATORYCLIA [id number] [address] CO2 adjusted to patient's actual temperature (Bld) [Partial pressure] 47 mmHg High 36-46 [facility] Comment on above: Order Comment: Speci men Type: ARTERIAL BLOOD SPECIMEN Performed By: #### A LLBG ####[facility]ATORYCLIA [id number] [address] Glucose [Mass/Vol] 141 mg/dL High 60-105 [facility] Comment on above: Order Comment: Speci men Type: ARTERIAL BLOOD SPECIMEN Performed By: #### A LLBG ####[facility]ORATORYCLIA [id number] [address] HCO3 (Bld) [Moles/Vol] 30 mmol/L High 22-26 [facility] Comment on above: Order Comment: Speci men Type: ARTERIAL BLOOD SPECIMEN Performed By: #### A LLBG ####[facility]ATORYCLIA [id number] [address] Hematocrit (Bld) [Volume fraction] 35.8 % Low 39.0-51.0 [facility] Comment on above: Order Comment: Speci men Type: ARTERIAL BLOOD SPECIMEN Performed By: #### A LLBG ####[facility]ATORYCLIA [id number] [address] Hemoglobin (Bld) [Mass/Vol] 11.6 g/dL Low 13.0-17.0 [facility] Comment on above: Order Comment: Speci men Type: ARTERIAL BLOOD SPECIMEN Performed By: #### A LLBG ####[facility]ATORYCLIA [id number] [address] Methemoglobin (Bld) [Mass fraction] % Normal 0.0-1.5 [facility] Comment on above: Order Comment: Speci men Type: ARTERIAL BLOOD SPECIMEN Performed By: #### A LLBG ####[facility]ORATORYCLIA [id number] [address] O2 THERAPY Ventilator Normal [facility] Comment on above: Order Comment: Speci men Type: ARTERIAL BLOOD SPECIMEN Performed By: #### A LLBG ####[facility]ORATORYCLIA [id number] [address] [facility] Oxygen (Bld) [Partial pressure] 69 mm Hg Low 85-95 [facility] Comment on above: Order Comment: Speci men Type: ARTERIAL BLOOD SPECIMEN Performed By: #### A LLBG ####[facility]ATORYCLIA [id number] [address] [place] Oxygen adjusted to patient's actual temperature (Bld) [Partial pressure] 70.8 mmHg Low 85-95 [facility] Comment on above: Order Comment: Speci men Type: ARTERIAL BLOOD SPECIMEN Performed By: #### A LLBG ####[facility]ATORYCLIA [id number] [address] [place] OXYGEN SATURATION, ARTERIAL 94 % Low 95-98 [facility] Comment on above: Order Comment: Speci men Type: ARTERIAL BLOOD SPECIMEN Performed By: #### A LLBG ####[facility]ATORYCLIA [id number] [address] Oxyhemoglobin (BldA) [Mass fraction] 93 % Low 95-98 [facility] Comment on above: Order Comment: Speci men Type: ARTERIAL BLOOD SPECIMEN Performed By: #### A LLBG ####[facility]ATORYCLIA [id number] [address] [place] pH (Bld) 7.43 [pH] Normal 7.35-7.45 [facility] Comment on above: Order Comment: Speci men Type: ARTERIAL BLOOD SPECIMEN Performed By: #### A LLBG ####[facility]ATORYCLIA [id number] [address] pH adjusted to patient's actual temperature (Bld) 7.43 Normal 7.35-7.45 [facility] Comment on above: Order Comment: Speci men Type: ARTERIAL BLOOD SPECIMEN Performed By: #### A LLBG ####[facility]ATORYCLIA [id number] [address] [facility] Potassium [Moles/Vol] 3.1 mmol/L Low 3.5-5.0 [facility] Comment on above: Order Comment: Speci men Type: ARTERIAL BLOOD SPECIMEN Performed By: #### A LLBG ####[facility]ATORYCLIA [id number] [address] [facility] Sodium [Moles/Vol] 145 mmol/L High 136-144 [facility] Comment on above: Order Comment: Speci men Type: ARTERIAL BLOOD SPECIMEN Performed By: #### A LLBG ####[facility]ORATORYCLIA [id number] [address] [facility] ASPERGILLUS GALACTOMANNAN SE RUMon 06-03-2021 Galactomannan Ag IA Ql Negative Normal NEGAT [facility] Comment on above: [...] disease is suspected. Performed By: #### A MIMI ####[facility]FER[facility] LABCLIA [id number] [facility] [facility] [address] [address] [place] Galactomannan Ag IA Qn <0.50 Normal [facility] Comment on above: Order Comment: Speci men Type: BLOOD SPECIMEN Result Comment: Inde x Values are Interpreted as Follows:Negative specimens <0.50Positive specimens >=0.50 Performed By: #### A SGAKATHRYN ####[facility] REFER[facility] LABCLIA [id number] [facility] [address] [address] [place] Basic metabolic 2000 panelon 06-03-2021 Anion gap [Moles/Vol] 8 mmol/L Low 9-18 [facility] Comment on above: Order Comment: Speci men Type: BLOOD SPECIMEN Performed By: #### 1 9123-9, 2777-1, 92617-6 ####[facility]ORATORYCLIA [id number] [place] [address] [place] Calcium [Mass/Vol] 8.0 mg/dL Low 8.5-10.2 [facility] Comment on above: Order Comment: Speci men Type: BLOOD SPECIMEN Performed By: #### 1 9123-9, 2777-1, 51905-8 ####[facility]ORATORYCLIA [id number] [place] [address] [place] Chloride [Moles/Vol] 110 mmol/L High 97-105 [facility] Comment on above: Order Comment: Speci men Type: BLOOD SPECIMEN Performed By: #### 1 9123-9, 2777-1, 65721-9 ####[facility]ATORYCLIA [id number] [place] [address] [place] CO2 [Moles/Vol] 28 mmol/L Normal 22-30 [facility] Comment on above: Order Comment: Speci men Type: BLOOD SPECIMEN Performed By: #### 1 9123-9, 2777-1, 42247-2 ####[facility]ORATORYCLIA [id number] [place] [address] [place] Creatinine [Mass/Vol] 0.75 mg/dL Normal 0.73-1.22 [facility] Comment on above: Order Comment: Speci men Type: BLOOD SPECIMEN Performed By: #### 1 9123-9, 2777-, 37977-2 ####[facility]ORATORYCLIA [id number] [place] [address] [place] GFR/1.73 sq M.predicted [...] GFR. Performed By: #### 1 9123-9, 2777-, 59796-9 ####[facility]ORATORYCLIA [id number] [place] [address] [place] Glucose [Mass/Vol] 141 mg/dL High 74-99 [facility] Comment on above: Order Comment: [facility] Type: BLOOD SPECIMEN Result Comment: The [place] [employer] (ADA) provides guidance for cutoff [...] Standards of Medical Care in Diabetes 2016, [employer] [place] [employer]. Diabetes Care. 2016.39(Suppl 1). Performed By: #### 1 9123-9, 2777-1, 49681-9 ####[facility]ATORYCLIA [id number] [address] Potassium [Moles/Vol] 3.3 mmol/L Low 3.7-5.1 [facility] Comment on above: Order Comment: Speci men Type: BLOOD SPECIMEN Performed By: #### 1 9123-9, 27711-04, 92163-2 ####[facility]ATORYCLIA [id number] [address] Sodium [Moles/Vol] 146 mmol/L High 136-144 [facility] Comment on above: Order Comment: Speci men Type: BLOOD SPECIMEN Performed By: #### 1 9123-9, 27711-04, 21352-1 ####[facility]ATORYCLIA [id number] [address] Urea nitrogen [Mass/Vol] 10 mg/dL Normal 9-24 [facility] Comment on above: Order Comment: Speci men Type: BLOOD SPECIMEN Performed By: #### 1 9123-9, 2777, 16374-1 ####[facility]ORATORYCLIA [id number] [address] CASE MANAGEMon 06-03-2021 CASE MANAGEM Normal [facility] CBC panel Auto (Bld)on 06-03 Erythrocyte distribution width (RBC) [Ratio] 15.6 % High 11.5-15.0 [facility] Comment on above: Order Comment: Speci men Type: BLOOD SPECIMEN Performed By: #### 5 8410-2 ####[facility]ORATORYCLIA [id number] [address] Hematocrit (Bld) [Volume fraction] 36.9 % Low 39.0-51.0 [facility] Comment on above: Order Comment: Speci men Type: BLOOD SPECIMEN Performed By: #### 5 8410-2 ####[facility]ATORYCLIA [id number] [address] Hemoglobin (Bld) [Mass/Vol] 11.1 g/dL Low 13.0-17.0 [facility] Comment on above: Order Comment: Speci men Type: BLOOD SPECIMEN Performed By: #### 5 8410-2 ####[facility]ORATORYCLIA [id number] [address] MCH (RBC) [Entitic mass] 27.0 pg Normal 26.0-34.0 [facility] Comment on above: Order Comment: Speci men Type: BLOOD SPECIMEN Performed By: #### 5 8410-2 ####[facility]ORATORYCLIA [id number] [address] MCHC (RBC) [Mass/Vol] 30.1 g/dL Low 30.5-36.0 [facility] Comment on above: Order Comment: Speci men Type: BLOOD SPECIMEN Performed By: #### 5 8410-2 ####[facility]ORATORYCLIA [id number] [address] MCV (RBC) [Entitic vol] 89.8 fL Normal 80.0-100.0 [facility] Comment on above: Order Comment: Speci men Type: BLOOD SPECIMEN Performed By: #### 5 8410-2 ####[facility]ATORYCLIA [id number] [address] Nucleated RBC (Bld) [#/Vol] 10*3/uL Normal <0.01 [facility] Comment on above: Order Comment: Speci men Type: BLOOD SPECIMEN Performed By: #### 5 8410-2 ####[facility]ORATORYCLIA [id number] [address] Platelet mean volume (Bld) [Entitic vol] 10.5 fL Normal 9.0-12.7 [facility] Comment on above: Order Comment: Speci men Type: BLOOD SPECIMEN Performed By: #### 5 8410-2 ####[facility]ORATORYCLIA [id number] [address] Platelets (Bld) [#/Vol] 196 10*3/uL Normal 150-400 [facility] Comment on above: Order Comment: Speci men Type: BLOOD SPECIMEN Performed By: #### 5 8410-2 ####[facility]ATORYCLIA [id number] [address] RBC (Bld) [#/Vol] 4.11 10*6/uL Low 4.20-6.00 [facility] Comment on above: Order Comment: Speci men Type: BLOOD SPECIMEN Performed By: #### 5 8410-2 ####[facility]ATORYCLIA [id number] [address] WBC (Bld) [#/Vol] 8.18 10*3/uL Normal 3.70-11.00 [facility] Comment on above: Order Comment: Speci men Type: BLOOD SPECIMEN Performed By: #### 5 8410-2 ####[facility]ORATORYCLIA [id number] [address] CONSULTon 06-03-2021 CONSULT Normal [facility] CONSULT PROGon 06-03-2021 CONSULT PROG Normal [facility] Gas and Carbon monoxide pane l (BldV)on 06-03-2021 Base excess Calc (BldV) [Moles/Vol] 1.4 mmol/L Normal 0-2 [facility] Comment on above: Order Comment: Speci men Type: VENOUS BLOOD SPECIMEN Performed By: #### 2 4344-4 ####[facility]ORATORYCLIA [id number] [address] Body temperature 98.42 [degF] Normal [facility] Comment on above: Order Comment: Speci men Type: VENOUS BLOOD SPECIMEN Performed By: #### 2 4344-4 ####[facility]ORATORYCLIA [id number] [address] CALCIUM IONIZED, PH CORRECTED 1.09 mmol/L Normal 1.08-1.30 [facility] Comment on above: Order Comment: Speci men Type: VENOUS BLOOD SPECIMEN Performed By: #### 2 4344-4 ####[facility]ORATORYCLIA [id number] [address] Calcium.ionized (BldV) [Mass/Vol] 1.12 mmol/L Normal 1.08-1.30 [facility] Comment on above: Order Comment: Speci men Type: VENOUS BLOOD SPECIMEN Performed By: #### 2 4344-4 ####[facility]ORATORYCLIA [id number] [address] Carboxyhemoglobin (BldV) [Mass fraction] 1.7 % Normal 0.0-2.0 [facility] Comment on above: Order Comment: Speci men Type: VENOUS BLOOD SPECIMEN Result Comment: Carb oxyhemoglobin Reference Range for Smokers: 2.0-8.0% Performed By: #### 2 4344-4 ####[facility]ORATORYCLIA [id number] [address] CO2 (BldV) [Partial pressure] 50 mm[Hg] Normal 42-55 [facility] Comment on above: Order Comment: Speci men Type: VENOUS BLOOD SPECIMEN Performed By: #### 2 4344-4 ####[facility]ORATORYCLIA [id number] [address] [place] CO2 [Moles/Vol] 24.9 mmol/L Low 25-29 [facility] Comment on above: Order Comment: Speci men Type: VENOUS BLOOD SPECIMEN Performed By: #### 2 4344-4 ####[facility]ORATORYCLIA [id number] [address] CO2 adjusted to patient's actual temperature (BldV) [Partial pressure] 50 mmHg Normal 42-55 [facility] Comment on above: Order Comment: Speci men Type: VENOUS BLOOD SPECIMEN Performed By: #### 2 4344-4 ####[facility] LABORATORYCLIA [id number] [address] [place] FIO2 30 % Normal [facility] Comment on above: Order Comment: Speci men Type: VENOUS BLOOD SPECIMEN Performed By: #### 2 4344-4 ####[facility]ATORYCLIA [id number] [address] Glucose [Mass/Vol] 191 mg/dL High 60-105 [facility] Comment on above: Order Comment: Speci men Type: VENOUS BLOOD SPECIMEN Performed By: #### 2 4344-4 ####[facility]ATORYCLIA [id number] [address] HCO3 (Bld) [Moles/Vol] 27.1 mmol/L Normal 24-28 [facility] Comment on above: Order Comment: Speci men Type: VENOUS BLOOD SPECIMEN Performed By: #### 2 4344-4 ####[facility]ATORYCLIA [id number] [address] Hematocrit (Bld) [Volume fraction] 36.2 % Low 39.0-51.0 [facility] Comment on above: Order Comment: Speci men Type: VENOUS BLOOD SPECIMEN Performed By: #### 2 4344-4 ####[facility]ATORYCLIA [id number] [address] Hemoglobin (Bld) [Mass/Vol] 11.8 g/dL Low 13.0-17.0 [facility] Comment on above: Order Comment: Speci men Type: VENOUS BLOOD SPECIMEN Performed By: #### 2 4344-4 ####[facility]ORATORYCLIA [id number] [address] INHALED TIDAL VOLUME (ML) 530 Normal [facility] Comment on above: Order Comment: Speci men Type: VENOUS BLOOD SPECIMEN Performed By: #### 2 4344-4 ####[facility]ORATORYCLIA [id number] [place] [address] [facility] Methemoglobin (Bld) [Mass fraction] % Normal 0.0-1.5 [facility] Comment on above: Order Comment: Speci men Type: VENOUS BLOOD SPECIMEN Performed By: #### 2 4344-4 ####[facility]ORATORYCLIA [id number] [place] [address] [facility] [place] O2 THERAPY Ventilator Normal [facility] Comment on above: Order Comment: Speci men Type: VENOUS BLOOD SPECIMEN Performed By: #### 2 4344-4 ####[facility]ORATORYCLIA [id number] [place], [place] [address] [place] [address] Oxygen (BldV) [Partial pressure] 69 mm[Hg] High 35-45 [facility] Comment on above: Order Comment: Speci men Type: VENOUS BLOOD SPECIMEN Performed By: #### 2 4344-4 ####[facility]ORATORYCLIA [id number] [place], [place] [address] [place] [address] Oxygen adjusted to patient's actual temperature (BldV) [Partial pressure] 68.8 mmHg High 35-45 [facility] Comment on above: Order Comment: Speci men Type: VENOUS BLOOD SPECIMEN Performed By: #### 2 4344-4 ####[facility]ATORYCLIA [id number] [place], [place] [address] [place] [address] Oxygen saturation in Blood 92.4 % High 60-85 [facility] Comment on above: Order Comment: Speci men Type: VENOUS BLOOD SPECIMEN Performed By: #### 2 4344-4 ####[facility]ATORYCLIA [id number] [place], [place] [address] [place] [address] Oxyhemoglobin (BldV) [Mass fraction] 90 % High 60-85 [facility] Comment on above: Order Comment: Speci men Type: VENOUS BLOOD SPECIMEN Performed By: #### 2 4344-4 ####[facility]ORATORYCLIA [id number] [facility], [address] PEEP/CPAP 8 cmH2O Normal [facility] Comment on above: Order Comment: Speci men Type: VENOUS BLOOD SPECIMEN Performed By: #### 2 4344-4 ####[facility]ORATORYCLIA [id number] [address] pH (BldV) 7.35 [pH] Normal 7.32-7.42 [facility] Comment on above: Order Comment: Speci men Type: VENOUS BLOOD SPECIMEN Performed By: #### 2 4344-4 ####[facility]ATORYCLIA [id number] [address] pH adjusted to patient's actual temperature (BldV) 7.35 Normal 7.32-7.42 [facility] Comment on above: Order Comment: Speci men Type: VENOUS BLOOD SPECIMEN Performed By: #### 2 4344-4 ####[facility]ATORYCLIA [id number] [address] Potassium [Moles/Vol] 3.6 mmol/L Normal 3.5-5.0 [facility] Comment on above: Order Comment: Speci men Type: VENOUS BLOOD SPECIMEN Performed By: #### 2 4344-4 ####[facility]ATORYCLIA [id number] [address] SET VENTILATOR RESPIRATORY RATE (BPM) 18 BPM Normal [facility] Comment on above: Order Comment: Speci men Type: VENOUS BLOOD SPECIMEN Performed By: #### 2 4344-4 ####[facility]ORATORYCLIA [id number] [address] Sodium [Moles/Vol] 141 mmol/L Normal 136-144 [facility] Comment on above: Order Comment: Speci men Type: VENOUS BLOOD SPECIMEN Performed By: #### 2 4344-4 ####[facility]ORATORYCLIA [id number] [address] [facility] HIV 1+2 Ab IA Qlon 2 HIV 1 and 2 Ab IA.rapid Nom Normal [facility] Comment on above: Order Comment: Speci men Type: BLOOD SPECIMEN Result Comment: Test not indicated. Performed By: #### 3 1201-7, TOXMG ####[facility]ORATORYCLIA [id number] [address] HIV 1+2 Ab+HIV1 p24 Ag IA Ql Non-Reactive Normal Nonreactive [facility] Comment on above: Order Comment: Speci men Type: BLOOD SPECIMEN Result Comment: [place] Rev. Code 3701.243(E): This information has been [...] 3 1201-7, TOXMG ####[facility] LABORATORYCLIA [id number] [address] HIVINT Normal [facility] Comment on above: Order Comment: Speci men Type: BLOOD SPECIMEN Result Comment: No e vidence of HIV-1 or HIV-2 infection. Should recent infection be suspected, repeat testing may be considered 2-3 weeks after this draw. Performed By: #### 3 1201-7, TOXMG ####[facility] LABORATORYCLIA [id number] [address] [place] Magnesium SerPl-mCncon 06-03 Magnesium [Mass/Vol] 1.9 mg/dL Normal 1.7-2.3 [facility] Comment on above: Order Comment: Speci men Type: BLOOD SPECIMEN Performed By: #### 1 9123-9, 2777-1, 60229-2 ####[facility] LABORATORYCLIA [id number] 98 [address] [place] NUTRITIONon 06-03-2021 NUTRITION Normal [facility] Phosphate SerPl-mCncon 06-03 Phosphate [Mass/Vol] 1.9 mg/dL Low 2.7-4.8 [facility] Comment on above: Order Comment: Speci men Type: BLOOD SPECIMEN Performed By: #### 1 9123-9, 2777-1, 95479-8 ####[facility]ORATORYCLIA [id number] [address] TOXOPLASMOSIS IGM AND IGG AB [...] 3 1201-7, TOXMG ####[facility]ORATORYCLIA [id number] [address] TOXO IGM QUAL Negative Normal Negative [facility] Comment on above: Order Comment: Speci men Type: BLOOD SPECIMEN Result Comment: No s erological evidence of recent exposure to Toxoplasma gondii.Negative <0.9 IndexEquivocal 0.9-0.99 IndexPositive >=1.0 Index Performed By: #### 3 1201-7, TOXMG ####[facility]ORATORYCLIA [id number] [address] [place] US DVT LOWER [...] #### A LLBG ####[facility]ORATORYCLIA [id number] [address] Body temperature 99.32 [degF] Normal [facility] Comment on above: Order Comment: Speci men Type: ARTERIAL BLOOD SPECIMEN Performed By: #### A LLBG ####[facility]ATORYCLIA [id number] [address] CALCIUM IONIZED, PH CORRECTED 1.15 mmol/L Normal 1.08-1.30 [facility] Comment on above: Order Comment: Speci men Type: ARTERIAL BLOOD SPECIMEN Performed By: #### A LLBG ####[facility]ATORYCLIA [id number] [address] Calcium.ionized (BldV) [Mass/Vol] 1.13 mmol/L Normal 1.08-1.30 [facility] Comment on above: Order Comment: Speci men Type: ARTERIAL BLOOD SPECIMEN Performed By: #### A LLBG ####[facility]ATORYCLIA [id number] [address] Carboxyhemoglobin (BldA) [Mass fraction] 1.4 % Normal 0.0-2.0 [facility] Comment on above: Order Comment: Speci men Type: ARTERIAL BLOOD SPECIMEN Result Comment: Carb oxyhemoglobin Reference Range for Smokers: 2.0-8.0% Performed By: #### A LLBG ####[facility]ATORYCLIA [id number] [address] CO2 (Bld) [Partial pressure] 39 mm Hg Normal 36-46 [facility] Comment on above: Order Comment: Speci men Type: ARTERIAL BLOOD SPECIMEN Performed By: #### A LLBG ####[facility]ATORYCLIA [id number] [address] CO2 [Moles/Vol] 23.4 mmol/L Normal 22-28 [facility] Comment on above: Order Comment: Speci men Type: ARTERIAL BLOOD SPECIMEN Performed By: #### A LLBG ####[facility]ATORYCLIA [id number] [address] CO2 adjusted to patient's actual temperature (Bld) [Partial pressure] 40 mmHg Normal 36-46 [facility] Comment on above: Order Comment: Speci men Type: ARTERIAL BLOOD SPECIMEN Performed By: #### A LLBG ####[facility]ATORYCLIA [id number] [address] Glucose [Mass/Vol] 156 mg/dL High 60-105 [facility] Comment on above: Order Comment: Speci men Type: ARTERIAL BLOOD SPECIMEN Performed By: #### A LLBG ####[facility]ATORYCLIA [id number] [address] HCO3 (Bld) [Moles/Vol] 26 mmol/L Normal 22-26 [facility] Comment on above: Order Comment: Speci men Type: ARTERIAL BLOOD SPECIMEN Performed By: #### A LLBG ####[facility]ORYCLIA [id number] [address] Hematocrit (Bld) [Volume fraction] 33.9 % Low 39.0-51.0 [facility] Comment on above: Order Comment: Speci men Type: ARTERIAL BLOOD SPECIMEN Performed By: #### A LLBG ####[facility]ORYCLIA [id number] [address] Hemoglobin (Bld) [Mass/Vol] 11.0 g/dL Low 13.0-17.0 [facility] Comment on above: Order Comment: Speci men Type: ARTERIAL BLOOD SPECIMEN Performed By: #### A LLBG ####[facility]ORYCLIA [id number] [address] Methemoglobin (Bld) [Mass fraction] % Normal 0.0-1.5 [facility] Comment on above: Order Comment: Speci men Type: ARTERIAL BLOOD SPECIMEN Performed By: #### A LLBG ####[facility]ATORYCLIA [id number] [address] O2 THERAPY Ventilator Normal [facility] Comment on above: Order Comment: Speci men Type: ARTERIAL BLOOD SPECIMEN Performed By: #### A LLBG ####[facility]ORATORYCLIA [id number] [place] [address] [place] Oxygen (Bld) [Partial pressure] 70 mm Hg Low 85-95 [facility] Comment on above: Order Comment: Speci men Type: ARTERIAL BLOOD SPECIMEN Performed By: #### A LLBG ####[facility]ATORYCLIA [id number] [place], [place] [id number] [place] [address] Oxygen adjusted to patient's actual temperature (Bld) [Partial pressure] 72.2 mmHg Low 85-95 [facility] Comment on above: Order Comment: Speci men Type: ARTERIAL BLOOD SPECIMEN Performed By: #### A LLBG ####[facility]ORYCLIA [id number] [address] OXYGEN SATURATION, ARTERIAL 96 % Normal 95-98 [facility] Comment on above: Order Comment: Speci men Type: ARTERIAL BLOOD SPECIMEN Performed By: #### A LLBG ####[facility]ATORYCLIA [id number] [address] Oxyhemoglobin (BldA) [Mass fraction] 94 % Low 95-98 [facility] Comment on above: Order Comment: Speci men Type: ARTERIAL BLOOD SPECIMEN Performed By: #### A LLBG ####[facility]ATORYCLIA [id number] [address] [place] pH (Bld) 7.43 [pH] Normal 7.35-7.45 [facility] Comment on above: Order Comment: Speci men Type: ARTERIAL BLOOD SPECIMEN Performed By: #### A LLBG ####[facility]ORYCLIA [id number] [address] pH adjusted to patient's actual temperature (Bld) 7.42 Normal 7.35-7.45 [facility] Comment on above: Order Comment: Speci men Type: ARTERIAL BLOOD SPECIMEN Performed By: #### A LLBG ####[facility]ORYCLIA [id number] [address] [place] Potassium [Moles/Vol] 2.6 mmol/L Low 3.5-5.0 [facility] Comment on above: Order Comment: Speci men Type: ARTERIAL BLOOD SPECIMEN Performed By: #### A LLBG ####[facility]ATORYCLIA [id number] [address] Sodium [Moles/Vol] 142 mmol/L Normal 136-144 [facility] Comment on above: Order Comment: Speci men Type: ARTERIAL BLOOD SPECIMEN Performed By: #### A LLBG ####[facility]ATORYCLIA [id number] [address] Ammonia Plas-sCncon 06-02-19 22 Ammonia (P) [Moles/Vol] 20 umol/L Normal 16-60 [facility] Comment on above: Order Comment: Speci men Type: BLOOD SPECIMEN Performed By: #### 1 6362-6 ####[facility]ORATORYCLIA [id number] [address] Bacteria CSF Culton 06-02-19 22 Bacteria identified Cx Nom (CSF) CULTURE, CSF: No growth 14 days GRAM STAIN: No organisms seen Rare Polymorphonuclear leukocytes Gram stain performed on cytospun specimen. Normal [facility] Comment on above: Performed By: #### 6 06-4 ####[facility]ORATORYCLIA [id number] [address] Basic metabolic 2000 panelon 06-02-2021 Anion gap [Moles/Vol] 10 mmol/L Normal 9-18 [facility] Comment on above: Order Comment: Speci men Type: BLOOD SPECIMEN Performed By: #### 2 4321-2, , 2776-05 ####[facility]ORATORYCLIA [id number] [address] STATES OF [facility] Calcium [Mass/Vol] 8.1 mg/dL Low 8.5-10.2 [facility] Comment on above: Order Comment: Speci men Type: BLOOD SPECIMEN Performed By: #### 2 4321-2, , 2776-05 ####[facility]ORATORYCLIA [id number] [place] [address] [place] Chloride [Moles/Vol] 108 mmol/L High 97-105 [facility] Comment on above: Order Comment: Speci men Type: BLOOD SPECIMEN Performed By: #### 2 4321-2, , 2776-05 ####[facility]ORATORYCLIA [id number] [place] [address] [place] CO2 [Moles/Vol] 24 mmol/L Normal 22-30 [facility] Comment on above: Order Comment: Speci men Type: BLOOD SPECIMEN Performed By: #### 2 1-2, , 2776-05 ####[facility]ORATORYCLIA [id number] [address] STATES [place] [facility] Creatinine [Mass/Vol] 0.78 mg/dL Normal 0.73-1.22 [facility] Comment on above: Order Comment: Speci men Type: BLOOD SPECIMEN Performed By: #### 2 1-2, , 2776-05 ####[facility]ATORYCLIA [id number] [address] [place] GFR/1.73 sq M.predicted [...] 4321-2, , 2776-05 ####[facility]ATORYCLIA [id number] [address] [place] Glucose [Mass/Vol] 162 mg/dL High 74-99 [facility] Comment on above: Order Comment: Speci men Type: BLOOD SPECIMEN Result Comment: The [place] [employer] (ADA) provides guidance for cutoff [...] Standards of Medical Care in Diabetes 2016, [place] [employer]. Diabetes Care. 2016.39(Suppl 1). Performed By: #### 2 1-2, , 2776-05 ####[facility]ORATORYCLIA [id number] [address] [place] Potassium [Moles/Vol] 2.7 mmol/L Low 3.7-5.1 [facility] Comment on above: Order Comment: Speci men Type: BLOOD SPECIMEN Performed By: #### 2 4320-2, , 2776-05 ####[facility]ATORYCLIA [id number] [address] STATES [facility] Sodium [Moles/Vol] 142 mmol/L Normal 136-144 [facility] Comment on above: Order Comment: Speci men Type: BLOOD SPECIMEN Performed By: #### 2 1-2, , 2776-05 ####[facility]ORATORYCLIA [id number] [place] [address] [place] Urea nitrogen [Mass/Vol] 12 mg/dL Normal 9-24 [facility] Comment on above: Order Comment: Speci men Type: BLOOD SPECIMEN Performed By: #### 2 1-2, , 2776-05 ####[facility]ATORYCLIA [id number] [address] STATES [facility] CBC panel Auto (Bld)on 06-02 Erythrocyte distribution width (RBC) [Ratio] 15.0 % Normal 11.5-15.0 [facility] Comment on above: Order Comment: Speci men Type: BLOOD SPECIMEN Performed By: #### 5 8410-2 ####[facility]ATORYCLIA [id number] [address] Hematocrit (Bld) [Volume fraction] 34.3 % Low 39.0-51.0 [facility] Comment on above: Order Comment: Speci men Type: BLOOD SPECIMEN Performed By: #### 5 8410-2 ####[facility]ATORYCLIA [id number] [address] Hemoglobin (Bld) [Mass/Vol] 10.3 g/dL Low 13.0-17.0 [facility] Comment on above: Order Comment: Speci men Type: BLOOD SPECIMEN Performed By: #### 5 8410-2 ####[facility]ORATORYCLIA [id number] [address] MCH (RBC) [Entitic mass] 27.0 pg Normal 26.0-34.0 [facility] Comment on above: Order Comment: Speci men Type: BLOOD SPECIMEN Performed By: #### 5 8410-2 ####[facility]ATORYCLIA [id number] [address] MCHC (RBC) [Mass/Vol] 30.0 g/dL Low 30.5-36.0 [facility] Comment on above: Order Comment: Speci men Type: BLOOD SPECIMEN Performed By: #### 5 8410-2 ####[facility]ATORYCLIA [id number] [address] MCV (RBC) [Entitic vol] 90.0 fL Normal 80.0-100.0 [facility] Comment on above: Order Comment: Speci men Type: BLOOD SPECIMEN Performed By: #### 5 8410-2 ####[facility]ATORYCLIA [id number] [address] Nucleated RBC (Bld) [#/Vol] 10*3/uL Normal <0.01 [facility] Comment on above: Order Comment: Speci men Type: BLOOD SPECIMEN Performed By: #### 5 8410-2 ####[facility]ATORYCLIA [id number] [address] Platelet mean volume (Bld) [Entitic vol] 10.2 fL Normal 9.0-12.7 [facility] Comment on above: Order Comment: Speci men Type: BLOOD SPECIMEN Performed By: #### 5 8410-2 ####[facility]ATORYCLIA [id number] [address] Platelets (Bld) [#/Vol] 194 10*3/uL Normal 150-400 [facility] Comment on above: Order Comment: Speci men Type: BLOOD SPECIMEN Performed By: #### 5 8410-2 ####[facility]ATORYCLIA [id number] [address] RBC (Bld) [#/Vol] 3.81 10*6/uL Low 4.20-6.00 [facility] Comment on above: Order Comment: Speci men Type: BLOOD SPECIMEN Performed By: #### 5 8410-2 ####[facility]ORATORYCLIA [id number] [address] WBC (Bld) [#/Vol] 9.22 10*3/uL Normal 3.70-11.00 [facility] Comment on above: Order Comment: Speci men Type: BLOOD SPECIMEN Performed By: #### 5 8410-2 ####[facility]ORATORYCLIA [id number] [address] CONSULT PROGon 06-02-2021 CONSULT PROG Normal [facility] CSF MANUAL DIFFon 06-02-2021 DIF TTL, CSF 25 cells counted Normal [facility] Comment on above: Order Comment: Speci men Type: CEREBROSPINAL FLUID Performed By: #### 3 4563-7, [id number], [id number] ####[facility]ATORYCLIA [id number] [place], [place] [address] [place] [address] [place] LYMPH%, CSF 4 % Low 50-90 [facility] Comment on above: Order Comment: Speci men Type: CEREBROSPINAL FLUID Performed By: #### 3 4563-7, [id number], [id number] ####[facility]ATORYCLIA [id number] [address] [place] MACRO%, CSF 4 % High <1 [facility] Comment on above: Order Comment: Speci men Type: CEREBROSPINAL FLUID Performed By: #### 3 4563-7, ESR0165, VLY7396 ####[facility]ATORYCLIA [id number] [address] [place] MONO%, CSF 20 % Normal 10-50 [facility] Comment on above: Order Comment: Speci men Type: CEREBROSPINAL FLUID Performed By: #### 3 4563-7, EWK7543, AXS5670 ####[facility]ATORYCLIA [id number] [address] [place] NEUT%, CSF 72 % High 0-3 [facility] Comment on above: Order Comment: Speci men Type: CEREBROSPINAL FLUID Performed By: #### 3 4563-7, [id number], [id number] ####[facility]ATORYCLIA [id number] [address] CSF PATHOLOGIST INTERP (LAB REFLEX ORDER-NO BILL)on 06-02-2021 CSF STAFF REVIEW Negative [facility] Comment on above: Order Comment: Speci men Type: CEREBROSPINAL FLUID Performed By: #### 3 4563-7, [id number], HWE1583 ####[facility]ATORYCLIA [id number] [address] Pathologist name Reviewed by Amador Stevens MD [facility] Comment on above: Order Comment: Speci men Type: CEREBROSPINAL FLUID Performed By: #### 3 4563-7, [id number], [id number] ####[facility]ATORYCLIA [id number] [address] Cell count panel (CSF)on Clarity (CSF) Clear Normal Clear [facility] Comment on above: Order Comment: Speci men Type: CEREBROSPINAL FLUID Performed By: #### 3 4563-7, [id number], CSH2342 ####[facility]ATORYCLIA [id number] [address] Clarity (Unsp spec) Not Indicated Normal Clear [facility] Comment on above: Order Comment: Speci men Type: CEREBROSPINAL FLUID Performed By: #### 3 4563-7, [id number], [id number] ####[facility]ATORYCLIA [id number] [address] Color (CSF) Colorless Normal Colorless [facility] Comment on above: Order Comment: Speci men Type: CEREBROSPINAL FLUID Performed By: #### 3 4563-7, JFE1274, IQX7169 ####[facility]ATORYCLIA [id number] [address] Color (Spun CSF) Not Indicated Normal Colorless [facility] Comment on above: Order Comment: Speci men Type: CEREBROSPINAL FLUID Performed By: #### 3 4563-7, IGQ5119, OMZ6167 ####[facility]ATORYCLIA [id number] [address] CSF TUBE NUMBER [employer] Container Normal [facility] Comment on above: Order Comment: Speci men Type: CEREBROSPINAL FLUID Performed By: #### 3 4563-7, [id number], DBQ7728 ####[facility]ATORYCLIA [id number] [address] RBC Manual cnt (CSF) [#/Vol] 117 cells/uL High 0-5 [facility] Comment on above: Order Comment: Speci men Type: CEREBROSPINAL FLUID Performed By: #### 3 4563-7, ZHY6243, JSH2004 ####[facility]ATORYCLIA [id number] [address] STATES [place] [facility] WBC Manual cnt (CSF) [#/Vol] 1 cells/uL Normal 0-5 [facility] Comment on above: Order Comment: Speci men Type: CEREBROSPINAL FLUID Performed By: #### 3 4563-7, KBA8516, [id number] ####[facility]ORATORYCLIA [id number] [address] [place] Glucose CSF-mCncon 2 [...] Glucose HK (GLUC3) [package insert V 12.0 Cuban]. [employer], [place], [place]. September 2015. 2. Michelle Moore, Loki HGarfield (2015). Chapter 7: Glucose and Lactate. Marianela Alcocer al.(eds.), Cerebrospinal Fluid in Clinical Neurology. [place]: [employer]. Performed By: #### 2 342-4 ####[facility]ORATORYCLIA [id number] [address] HEPATIC FUNCTION PNLon 06-02 Albumin [Mass/Vol] 3.2 g/dL Low 3.9-4.9 [facility] Comment on above: Order Comment: Speci men Type: BLOOD SPECIMEN Performed By: #### [place], 71988-8 ####[facility]ORATORYCLIA [id number] [address] [place] ALP [Catalytic activity/Vol] 67 U/L Normal 38-113 [facility] Comment on above: Order Comment: Speci men Type: BLOOD SPECIMEN Performed By: #### [place], 30381-6 ####[facility]ATORYCLIA [id number] [address] [place] [facility] ALT With P-5'-P [Catalytic activity/Vol] 16 U/L Normal 10-54 [facility] Comment on above: Order Comment: Speci men Type: BLOOD SPECIMEN Performed By: #### [place], [address]-0 ####[place] Tier[facility] TechnologyVENITA [facility]AL LABORATORYCLIA [id number] [address] AST With P-5'-P [Catalytic activity/Vol] 25 U/L Normal 14-40 [facility] Comment on above: Order Comment: Speci men Type: BLOOD SPECIMEN Performed By: #### [place] KATHIE, 96500-5 ####[facility]ATORYCLIA [id number] [address] Bilirubin [Mass/Vol] 0.2 mg/dL Normal 0.2-1.3 [facility] Comment on above: Order Comment: Speci men Type: BLOOD SPECIMEN Performed By: #### [place] KATHIE, ####[facility]ORYCLIA [id number] [address] Bilirubin.conjugated [Mass/Vol] mg/dL Normal <0.2 [facility] Comment on above: Order Comment: Speci men Type: BLOOD SPECIMEN Performed By: #### [place] KATHIE, 36499-5 ####[place] Tier[facility] TechnologyVENITA [facility]AL LABORATORYCLIA [id number] [address] Protein [Mass/Vol] 5.8 g/dL Low 6.3-8.0 [facility] Comment on above: Order Comment: Speci men Type: BLOOD SPECIMEN Performed By: #### [place], [address]-4 ####[place] [facility] TechnologyVENITA [facility]AL LABORATORYCLIA [id number] [address] MRI BRAIN WO/W IVCONon 06-02 MRI BRAIN WO/W IVCON Normal [facility] Magnesium SerPl-mCncon 06-02 Magnesium [Mass/Vol] 2.0 mg/dL Normal 1.7-2.3 [facility] Comment on above: Order Comment: Speci men Type: BLOOD SPECIMEN Performed By: #### 2 4321-2, 39576-3, 2777-1 ####[facility]ORATORYCLIA [id number] [address] NT-proBNP SerPl-ncon 06-02 Natriuretic peptide.B prohormone N-Terminal [Mass/Vol] 296 pg/mL High <125 [facility] Comment on above: Order Comment: Speci men Type: BLOOD SPECIMEN Performed By: #### H FP, 91795-7 ####[facility]ORATORYCLIA [id number] [address] OF [facility] POTASSIUM BLDon 06-02-2021 Potassium [Moles/Vol] 3.2 mmol/L Low 3.7-5.1 [facility] Comment on above: Order Comment: Speci men Type: BLOOD SPECIMEN Performed By: #### K 1 ####[facility]ORATORYCLIA [id number] [address] [place] [facility] Phosphate SerPl[facility] Phosphate [Mass/Vol] 2.1 mg/dL Low 2.7-4.8 [facility] Comment on above: Order Comment: Speci men Type: BLOOD SPECIMEN Performed By: #### 2 4321-2, 83969-2, 2777-1 ####[facility]ORATORYCLIA [id number] [address] [place] Vancomycin random [Mass/Vol] [...] #### 4 091-5 ####[facility]ORATORYCLIA [id number] [address] [place] ALLIED HEALTHon 06-01-2021 ALLIED HEALTH Normal [facility] ALLIED HEALTH Normal [facility] ALLIED HEALTH Normal [facility] ARTERIAL BLOOD GASESon 06-01 Base excess Calc (Bld) [Moles/Vol] 1 mmol/L Normal 0-2 [facility] Comment on above: Order Comment: Speci men Type: ARTERIAL BLOOD SPECIMEN Performed By: #### A LLBG ####[facility]ORATORYCLIA [id number] [address] Body temperature 97.52 [degF] Normal [facility] Comment on above: Order Comment: Speci men Type: ARTERIAL BLOOD SPECIMEN Performed By: #### A LLBG ####[facility]ORATORYCLIA [id number] [address] CALCIUM IONIZED, PH CORRECTED 1.13 mmol/L Normal 1.08-1.30 [facility] Comment on above: Order Comment: Speci men Type: ARTERIAL BLOOD SPECIMEN Performed By: #### A LLBG ####[facility]ATORYCLIA [id number] [address] Calcium.ionized (BldV) [Mass/Vol] 1.12 mmol/L Normal 1.08-1.30 [facility] Comment on above: Order Comment: Speci men Type: ARTERIAL BLOOD SPECIMEN Performed By: #### A LLBG ####[facility]ORATORYCLIA [id number] [address] Carboxyhemoglobin (BldA) [Mass fraction] 1.6 % Normal 0.0-2.0 [facility] Comment on above: Order Comment: Speci men Type: ARTERIAL BLOOD SPECIMEN Result Comment: Carb oxyhemoglobin Reference Range for Smokers: 2.0-8.0% Performed By: #### A LLBG ####[facility]ORATORYCLIA [id number] [address] CO2 (Bld) [Partial pressure] 41 mm Hg Normal 36-46 [facility] Comment on above: Order Comment: Speci men Type: ARTERIAL BLOOD SPECIMEN Performed By: #### A LLBG ####[facility]ATORYCLIA [id number] [address] CO2 [Moles/Vol] 23.0 mmol/L Normal 22-28 [facility] Comment on above: Order Comment: Speci men Type: ARTERIAL BLOOD SPECIMEN Performed By: #### A LLBG ####[facility]ATORYCLIA [id number] [address] CO2 adjusted to patient's actual temperature (Bld) [Partial pressure] 40 mmHg Normal 36-46 [facility] Comment on above: Order Comment: Speci men Type: ARTERIAL BLOOD SPECIMEN Performed By: #### A LLBG ####[facility]ORATORYCLIA [id number] [address] [place] FIO2 40 % Normal [facility] Comment on above: Order Comment: Speci men Type: ARTERIAL BLOOD SPECIMEN Performed By: #### A LLBG ####[facility]ATORYCLIA [id number] [address] Glucose [Mass/Vol] 127 mg/dL High 60-105 [facility] Comment on above: Order Comment: Speci men Type: ARTERIAL BLOOD SPECIMEN Performed By: #### A LLBG ####[facility]ORYCLIA [id number] [address] HCO3 (Bld) [Moles/Vol] 25 mmol/L Normal 22-26 [facility] Comment on above: Order Comment: Speci men Type: ARTERIAL BLOOD SPECIMEN Performed By: #### A LLBG ####[facility]ATORYCLIA [id number] [address] [place] Hematocrit (Bld) [Volume fraction] 33.7 % Low 39.0-51.0 [facility] Comment on above: Order Comment: Speci men Type: ARTERIAL BLOOD SPECIMEN Performed By: #### A LLBG ####[facility]ORYCLIA [id number] [address] Hemoglobin (Bld) [Mass/Vol] 10.9 g/dL Low 13.0-17.0 [facility] Comment on above: Order Comment: Speci men Type: ARTERIAL BLOOD SPECIMEN Performed By: #### A LLBG ####[facility]ORATORYCLIA [id number] [address] OF [place] INHALED TIDAL VOLUME (ML) 500 Normal [facility] Comment on above: Order Comment: Speci men Type: ARTERIAL BLOOD SPECIMEN Performed By: #### A LLBG ####[facility]ATORYCLIA [id number] [address] INVASIVE VENTILATOR MODE PRVC=Pressure Regulated Volume Control Normal [facility] Comment on above: Order Comment: Speci men Type: ARTERIAL BLOOD SPECIMEN Performed By: #### A LLBG ####[facility]ORYCLIA [id number] [address] [place] Methemoglobin (Bld) [Mass fraction] % Normal 0.0-1.5 [facility] Comment on above: Order Comment: Speci men Type: ARTERIAL BLOOD SPECIMEN Performed By: #### A LLBG ####[facility] [facility]ORYCLIA [id number] [address] [place] O2 THERAPY Ventilator Normal [facility] Comment on above: Order Comment: Speci men Type: ARTERIAL BLOOD SPECIMEN Performed By: #### A LLBG ####[facility] [facility]ORYCLIA [id number] [address] [place] Oxygen (Bld) [Partial pressure] 64 mm Hg Low 85-95 [facility] Comment on above: Order Comment: Speci men Type: ARTERIAL BLOOD SPECIMEN Performed By: #### A LLBG ####[facility]ORYCLIA [id number] [address] [place] Oxygen adjusted to patient's actual temperature (Bld) [Partial pressure] 61.8 mmHg Low 85-95 [facility] Comment on above: Order Comment: Speci men Type: ARTERIAL BLOOD SPECIMEN Performed By: #### A LLBG ####[facility] [facility]ORYCLIA [id number] [address] [place] OXYGEN SATURATION, ARTERIAL 94 % Low 95-98 [facility] Comment on above: Order Comment: Speci men Type: ARTERIAL BLOOD SPECIMEN Performed By: #### A LLBG ####[facility]ORYCLIA [id number] [address] Oxyhemoglobin (BldA) [Mass fraction] 92 % Low 95-98 [facility] Comment on above: Order Comment: Speci men Type: ARTERIAL BLOOD SPECIMEN Performed By: #### A LLBG ####[facility]ORYCLIA [id number] [address] PEEP/CPAP 5 cmH2O Normal [facility] Comment on above: Order Comment: Speci men Type: ARTERIAL BLOOD SPECIMEN Performed By: #### A LLBG ####[facility] [facility]ORYCLIA [id number] [address] pH (Bld) 7.40 [pH] Normal 7.35-7.45 [facility] Comment on above: Order Comment: Speci men Type: ARTERIAL BLOOD SPECIMEN Performed By: #### A LLBG ####[place] [facility]ORYCLIA [id number] [address] pH adjusted to patient's actual temperature (Bld) 7.41 Normal 7.35-7.45 [facility] Comment on above: Order Comment: Speci men Type: ARTERIAL BLOOD SPECIMEN Performed By: #### A LLBG ####[facility]ORYCLIA [id number] [address] Potassium [Moles/Vol] 3.1 mmol/L Low 3.5-5.0 [facility] Comment on above: Order Comment: Speci men Type: ARTERIAL BLOOD SPECIMEN Performed By: #### A LLBG ####[facility]ORYCLIA [id number] [address] SET VENTILATOR RESPIRATORY RATE (BPM) 18 BPM Normal [facility] Comment on above: Order Comment: Speci men Type: ARTERIAL BLOOD SPECIMEN Performed By: #### A LLBG ####[facility]ORYCLIA [id number] [address] Sodium [Moles/Vol] 141 mmol/L Normal 136-144 [facility] Comment on above: Order Comment: Speci men Type: ARTERIAL BLOOD SPECIMEN Performed By: #### A LLBG ####[facility]ORATORYCLIA [id number] [address] BASE DEFICIT, ARTERIAL -1.0 mmol/L Normal -2-0 A [facility] Comment on above: Order Comment: Speci men Type: ARTERIAL BLOOD SPECIMEN Performed By: #### A LLBG ####[facility]ORATORYCLIA [id number] [address] Body temperature 98.24 [degF] Normal [facility] Comment on above: Order Comment: Speci men Type: ARTERIAL BLOOD SPECIMEN Performed By: #### A LLBG ####[facility]ORATORYCLIA [id number] [address] CALCIUM IONIZED, PH CORRECTED 1.08 mmol/L Normal 1.08-1.30 [facility] Comment on above: Order Comment: Speci men Type: ARTERIAL BLOOD SPECIMEN Performed By: #### A LLBG ####[facility]ORATORYCLIA [id number] [address] Calcium.ionized (BldV) [Mass/Vol] 1.15 mmol/L Normal 1.08-1.30 [facility] Comment on above: Order Comment: Speci men Type: ARTERIAL BLOOD SPECIMEN Performed By: #### A LLBG ####[facility]ORATORYCLIA [id number] [address] Carboxyhemoglobin (BldA) [Mass fraction] 1.4 % Normal 0.0-2.0 [facility] Comment on above: Order Comment: Speci men Type: ARTERIAL BLOOD SPECIMEN Result Comment: Carb oxyhemoglobin Reference Range for Smokers: 2.0-8.0% Performed By: #### A LLBG ####[facility]ORATORYCLIA [id number] [place] [address] [place] CO2 (Bld) [Partial pressure] 59 mm Hg High 36-46 [facility] Comment on above: Order Comment: Speci men Type: ARTERIAL BLOOD SPECIMEN Performed By: #### A LLBG ####[facility]ORYCLIA [id number] [address] CO2 [Moles/Vol] 24.5 mmol/L Normal 22-28 [facility] Comment on above: Order Comment: Speci men Type: ARTERIAL BLOOD SPECIMEN Performed By: #### A LLBG ####[facility]ORYCLIA [id number] [address] CO2 adjusted to patient's actual temperature (Bld) [Partial pressure] 58 mmHg High 36-46 [facility] Comment on above: Order Comment: Speci men Type: ARTERIAL BLOOD SPECIMEN Performed By: #### A LLBG ####[facility]ORYCLIA [id number] [address] FIO2 40 % Normal [facility] Comment on above: Order Comment: Speci men Type: ARTERIAL BLOOD SPECIMEN Performed By: #### A LLBG ####[facility]ORYCLIA [id number] [address] Glucose [Mass/Vol] 128 mg/dL High 60-105 [facility] Comment on above: Order Comment: Speci men Type: ARTERIAL BLOOD SPECIMEN Performed By: #### A LLBG ####[facility]ORYCLIA [id number] [address] [place] HCO3 (Bld) [Moles/Vol] 26 mmol/L Normal 22-26 [facility] Comment on above: Order Comment: Speci men Type: ARTERIAL BLOOD SPECIMEN Performed By: #### A LLBG ####[facility] [facility]ORYCLIA [id number] [address] Hematocrit (Bld) [Volume fraction] 35.6 % Low 39.0-51.0 [facility] Comment on above: Order Comment: Speci men Type: ARTERIAL BLOOD SPECIMEN Performed By: #### A LLBG ####[facility]ORYCLIA [id number] [address] [place] Hemoglobin (Bld) [Mass/Vol] 11.5 g/dL Low 13.0-17.0 [facility] Comment on above: Order Comment: Speci men Type: ARTERIAL BLOOD SPECIMEN Performed By: #### A LLBG ####[facility]ORYCLIA [id number] [address] INHALED TIDAL VOLUME (ML) 500 Normal [facility] Comment on above: Order Comment: Speci men Type: ARTERIAL BLOOD SPECIMEN Performed By: #### A LLBG ####[facility]ORYCLIA [id number] [address] INVASIVE VENTILATOR MODE PRVC=Pressure Regulated Volume Control [facility] Comment on above: Order Comment: Speci men Type: ARTERIAL BLOOD SPECIMEN Performed By: #### A LLBG ####[facility]ORYCLIA [id number] [address] Methemoglobin (Bld) [Mass fraction] % Normal 0.0-1.5 [facility] Comment on above: Order Comment: Speci men Type: ARTERIAL BLOOD SPECIMEN Performed By: #### A LLBG ####[facility]ORYCLIA [id number] [address] [place] O2 THERAPY Ventilator Normal [facility] Comment on above: Order Comment: Speci men Type: ARTERIAL BLOOD SPECIMEN Performed By: #### A LLBG ####[facility]ORYCLIA [id number] [address] [place] Oxygen (Bld) [Partial pressure] 88 mm Hg Normal 85-95 [facility] Comment on above: Order Comment: Speci men Type: ARTERIAL BLOOD SPECIMEN Performed By: #### A LLBG ####[facility]ORYCLIA [id number] [address] [place] Oxygen adjusted to patient's actual temperature (Bld) [Partial pressure] 86.5 mmHg Normal 85-95 [facility] Comment on above: Order Comment: Speci men Type: ARTERIAL BLOOD SPECIMEN Performed By: #### A LLBG ####[facility]ORYCLIA [id number] [address] OXYGEN SATURATION, ARTERIAL 95 % Normal 95-98 [facility] Comment on above: Order Comment: Speci men Type: ARTERIAL BLOOD SPECIMEN Performed By: #### A LLBG ####[facility]ORYCLIA [id number] [address] Oxyhemoglobin (BldA) [Mass fraction] 93 % Low 95-98 [facility] Comment on above: Order Comment: Speci men Type: ARTERIAL BLOOD SPECIMEN Performed By: #### A LLBG ####[facility]ORYCLIA [id number] [address] PEEP/CPAP 5 cmH2O Normal [facility] Comment on above: Order Comment: Speci men Type: ARTERIAL BLOOD SPECIMEN Performed By: #### A LLBG ####[facility]ORYCLIA [id number] [address] pH (Bld) 7.27 [pH] Low 7.35-7.45 [facility] Comment on above: Order Comment: Speci men Type: ARTERIAL BLOOD SPECIMEN Performed By: #### A LLBG ####[facility]ORYCLIA [id number] [address] pH adjusted to patient's actual temperature (Bld) 7.28 Low 7.35-7.45 [facility] Comment on above: Order Comment: Speci men Type: ARTERIAL BLOOD SPECIMEN Performed By: #### A LLBG ####[facility]ORYCLIA [id number] [address] Potassium [Moles/Vol] 3.3 mmol/L Low 3.5-5.0 [facility] Comment on above: Order Comment: Speci men Type: ARTERIAL BLOOD SPECIMEN Performed By: #### A LLBG ####[facility] [facility]ORYCLIA [id number] [address] SET VENTILATOR RESPIRATORY RATE (BPM) 14 BPM Normal [facility] Comment on above: Order Comment: Speci men Type: ARTERIAL BLOOD SPECIMEN Performed By: #### A LLBG ####[facility]ORATORYCLIA [id number] [address] Sodium [Moles/Vol] 141 mmol/L Normal 136-144 [facility] Comment on above: Order Comment: Speci men Type: ARTERIAL BLOOD SPECIMEN Performed By: #### A LLBG ####[facility]ORATORYCLIA [id number] [address] Bacteria CSF Culton 06-01-19 22 Bacteria identified Cx Nom (CSF) CULTURE, CSF: No growth 14 days GRAM STAIN: No organisms seen Rare Polymorphonuclear leukocytes Moderate Red Blood Cells Gram stain performed on cytospun specimen. Normal [facility] Comment on above: Performed By: #### 6 06-4 ####[facility]ORATORYCLIA [id number] [address] [place] Bacteria Spec Resp Culton Bacteria identified Respiratory culture Nom (Unsp spec) CULTURE, RESPIRATORY: No growth 2 days GRAM STAIN: No organisms seen No Polymorphonuclear Leukocytes Normal [facility] Comment on above: Performed By: #### 3 2355-0 ####[facility]ORATORYCLIA [id number] [address] [facility] Basic metabolic 2000 panelon 06-01-2021 Anion gap [Moles/Vol] 8 mmol/L Low 9-18 [facility] Comment on above: Order Comment: Speci men Type: BLOOD SPECIMEN Performed By: #### 2 4321-2, 35915-7, 2777-1 ####[facility]ORATORYCLIA [id number] [address] Calcium [Mass/Vol] 7.8 mg/dL Low 8.5-10.2 [facility] Comment on above: Order Comment: Speci men Type: BLOOD SPECIMEN Performed By: #### 2 4321-2, , 2776-05 ####[facility]ORATORYCLIA [id number] [address] STATES [facility] Chloride [Moles/Vol] 109 mmol/L High 97-105 [facility] Comment on above: Order Comment: Speci men Type: BLOOD SPECIMEN Performed By: #### 2 1-2, , 2776-05 ####[facility]ORATORYCLIA [id number] [address] STATES [facility] CO2 [Moles/Vol] 26 mmol/L Normal 22-30 [facility] Comment on above: Order Comment: Speci men Type: BLOOD SPECIMEN Performed By: #### 2 1-2, , 2776-05 ####[facility]ORATORYCLIA [id number] [address] [place] [facility] Creatinine [Mass/Vol] 0.82 mg/dL Normal 0.73-1.22 [facility] Comment on above: Order Comment: Speci men Type: BLOOD SPECIMEN Performed By: #### 2 4320-2, , 2776-05 ####[facility]ORATORYCLIA [id number] [address] [place] GFR/1.73 sq M.predicted [...] 1-2, , 2776-05 ####[facility]ORATORYCLIA [id number] [place] [address] [place] Glucose [Mass/Vol] 105 mg/dL High 74-99 [facility] Comment on above: Order Comment: Speci men Type: BLOOD SPECIMEN Result Comment: The [place] [employer] (ADA) provides guidance for cutoff [...] Standards of Medical Care in Diabetes 2016, [employer] [place] [employer]. Diabetes Care. 2016.39(Suppl 1). Performed By: #### 2 4320-2, , 2776-05 ####[facility]ORATORYCLIA [id number] [place] [address] [place] Potassium [Moles/Vol] 3.8 mmol/L Normal 3.7-5.1 [facility] Comment on above: Order Comment: Speci men Type: BLOOD SPECIMEN Performed By: #### 2 4320-2, , 2776-05 ####[facility]ORATORYCLIA [id number] [place] [address] [place] Sodium [Moles/Vol] 143 mmol/L Normal 136-144 [facility] Comment on above: Order Comment: Speci men Type: BLOOD SPECIMEN Performed By: #### 2 4320-2, , 2776-05 ####[facility]ATORYCLIA [id number] [address] [place] Urea nitrogen [Mass/Vol] 15 mg/dL Normal 9-24 [facility] Comment on above: Order Comment: Speci men Type: BLOOD SPECIMEN Performed By: #### 2 4320-2, , 2777-1 ####[facility]ATORYCLIA [id number] [address] CBC panel Auto (Bld)on 06-01 Erythrocyte distribution width (RBC) [Ratio] 15.4 % High 11.5-15.0 [facility] Comment on above: Order Comment: Speci men Type: BLOOD SPECIMEN Performed By: #### 5 8410-2 ####[facility]ATORYCLIA [id number] [address] Hematocrit (Bld) [Volume fraction] 38.4 % Low 39.0-51.0 [facility] Comment on above: Order Comment: Speci men Type: BLOOD SPECIMEN Performed By: #### 5 8410-2 ####[facility]ATORYCLIA [id number] [address] Hemoglobin (Bld) [Mass/Vol] 11.1 g/dL Low 13.0-17.0 [facility] Comment on above: Order Comment: Speci men Type: BLOOD SPECIMEN Performed By: #### 5 8410-2 ####[facility]ORATORYCLIA [id number] [address] MCH (RBC) [Entitic mass] 26.9 pg Normal 26.0-34.0 [facility] Comment on above: Order Comment: Speci men Type: BLOOD SPECIMEN Performed By: #### 5 8410-2 ####[facility]ORATORYCLIA [id number] [address] MCHC (RBC) [Mass/Vol] 28.9 g/dL Low 30.5-36.0 [facility] Comment on above: Order Comment: Speci men Type: BLOOD SPECIMEN Performed By: #### 5 8410-2 ####[facility]ORATORYCLIA [id number] [address] MCV (RBC) [Entitic vol] 93.2 fL Normal 80.0-100.0 [facility] Comment on above: Order Comment: Speci men Type: BLOOD SPECIMEN Performed By: #### 5 8410-2 ####[facility]ORATORYCLIA [id number] [address] Nucleated RBC (Bld) [#/Vol] 10*3/uL Normal <0.01 [facility] Comment on above: Order Comment: Speci men Type: BLOOD SPECIMEN Performed By: #### 5 8410-2 ####[facility]ORATORYCLIA [id number] [address] Platelet mean volume (Bld) [Entitic vol] 10.2 fL Normal 9.0-12.7 [facility] Comment on above: Order Comment: Speci men Type: BLOOD SPECIMEN Performed By: #### 5 8410-2 ####[facility]ORATORYCLIA [id number] [address] Platelets (Bld) [#/Vol] 231 10*3/uL Normal 150-400 [facility] Comment on above: Order Comment: Speci men Type: BLOOD SPECIMEN Performed By: #### 5 8410-2 ####[facility]ATORYCLIA [id number] [address] RBC (Bld) [#/Vol] 4.12 10*6/uL Low 4.20-6.00 [facility] Comment on above: Order Comment: Speci men Type: BLOOD SPECIMEN Performed By: #### 5 8410-2 ####[facility]ATORYCLIA [id number] [address] [facility] WBC (Bld) [#/Vol] 10.99 10*3/uL Normal 3.70-11.00 [facility] Comment on above: Order Comment: Speci men Type: BLOOD SPECIMEN Performed By: #### 5 8410-2 ####[facility]ATORYCLIA [id number] [address] [facility] CONSULT PROGon 06-01-2021 CONSULT PROG Normal [facility] CSF MANUAL DIFFon 06-01-2021 DIF TTL, CSF 100 cells counted Normal [facility] Comment on above: Order Comment: Speci men Type: CEREBROSPINAL FLUID Performed By: #### 3 4563-7, [id number] ####[facility]ATORYCLIA [id number] [place], [place] [address] [place] [address] LYMPH%, CSF 11 % Low 50-90 [facility] Comment on above: Order Comment: Speci men Type: CEREBROSPINAL FLUID Performed By: #### 3 4563-7, [id number] ####[facility] [facility]ORYCLIA [id number] [address] [place] MONO%, CSF 10 % Normal 10-50 [facility] Comment on above: Order Comment: Speci men Type: CEREBROSPINAL FLUID Performed By: #### 3 4563-7, [id number] ####[facility]ORYCLIA [id number] [address] NEUT%, CSF 79 % High 0-3 [facility] Comment on above: Order Comment: Speci men Type: CEREBROSPINAL FLUID Performed By: #### 3 4563-7, [id number] ####[facility]ORYCLIA [id number] [address] BRAIN WO IVCONon 06-01-19 CT BRAIN WO IVCON Normal [facility] Cell count panel (CSF)on Clarity (CSF) Clear Normal Clear [facility] Comment on above: Order Comment: Speci men Type: CEREBROSPINAL FLUID Performed By: #### 3 4563-7, [id number] ####[facility] [facility]ORYCLIA [id number] [address] Clarity (Unsp spec) Not Indicated Normal Clear [facility] Comment on above: Order Comment: Speci men Type: CEREBROSPINAL FLUID Performed By: #### 3 4563-7, [id number] ####[facility] [facility]ORYCLIA [id number] [address] Color (CSF) Colorless Normal Colorless [facility] Comment on above: Order Comment: Speci men Type: CEREBROSPINAL FLUID Performed By: #### 3 4563-7, [id number] ####[facility]ORATORYCLIA [id number] [address] Color (Spun CSF) Not Indicated Normal Colorless [facility] Comment on above: Order Comment: Speci men Type: CEREBROSPINAL FLUID Performed By: #### 3 4563-7, [id number] ####[facility]ORATORYCLIA [id number] [address] CSF TUBE NUMBER Sterile Container Normal [facility] Comment on above: Order Comment: Speci men Type: CEREBROSPINAL FLUID Performed By: #### 3 4563-7, [id number] ####[facility]ORATORYCLIA [id number] [address] RBC Manual cnt (CSF) [#/Vol] 171 cells/uL High 0-5 [facility] Comment on above: Order Comment: Speci men Type: CEREBROSPINAL FLUID Performed By: #### 3 4563-7, [id number] ####[facility] LABORATORYCLIA [id number] [address] WBC Manual cnt (CSF) [#/Vol] 5 cells/uL Normal 0-5 [facility] Comment on above: Order Comment: Speci men Type: CEREBROSPINAL FLUID Performed By: #### 3 4563-7, [id number] ####[facility]ORATORYCLIA [id number] [address] FUNGAL CULTUREon 06-01-2021 FUNGAL CULTURE CULTURE, FUNGAL: No Fungus isolated after 28 days Normal [facility] Comment on above: Performed By: #### F CUL ####[facility]ORATORYCLIA [id number] [address] Glucose CSF-mCncon Glucose (CSF) [Mass/Vol] 78 mg/dL High 40-70 [facility] Comment on above: Order Comment: Speci men Type: CEREBROSPINAL FLUID Result Comment: Lumb ar CSF glucose values of healthy patients are approximately 60% of the plasma values and must always be compared with a concurrently measured plasma value for adequate clinical interpretation.References: 1. Glucose HK (GLUC3) [package insert V 12.0 Cuban]. [employer], [place], [place]. September 2015. 2. Michelle Mooer, Michelle Manjarrez (2015). Chapter 7: Glucose and Lactate. F. Irina rose al.(eds.), Cerebrospinal Fluid in Clinical Neurology. [place]: [employer]. Performed By: #### 2 342-4, 2880-3 ####[facility]ORATORYCLIA [id number] [place], [place] [address] [place] [address] [place] HERPES SIMPLEX CSFon 022 HERPES SIMPLEX CSF HSV PCR SPEC SOURCE: Cerebrospinal Fluid HSV-1: Negative for Herpes Simplex Virus Type 1 by PCR HSV-2: Negative for Herpes Simplex Virus Type 2 by PCR Normal [facility] Comment on above: Performed By: #### H [facility] ####[facility]FER[facility] LABCLIA [id number] [id number] [address] [place] Lactate (Bld) [Moles/Vol]on 06-01-2021 Lactate [Moles/Vol] 0.5 mmol/L Normal 0.5-2.2 [facility] Comment on above: Order Comment: Speci men Type: BLOOD SPECIMEN Performed By: #### 3 2693-4 ####[facility] LABORATORYCLIA [id number] [place] [address] [facility] [place] MENINGITIS ENCEPHALITIS BIOF IREon 06-01-2021 MENINGITIS ENCEPHALITIS BIOFIRE Negative Normal [facility] Comment on above: Order Comment: Speci men Type: CEREBROSPINAL FLUID Performed By: #### M GEBF ####[facility] [id number] [address] Magnesium SerPl-mCncon 06-01 Magnesium [Mass/Vol] 2.2 mg/dL Normal 1.7-2.3 [facility] Comment on above: Order Comment: Speci men Type: BLOOD SPECIMEN Performed By: #### 2 4321-2, 41559-9, 6157-1 ####[facility]ORATORYCLIA [id number] [place], [place] [id number] [place] [address] [place] Microorganism Spec Culton Microorganism identified Cx Nom (Unsp spec) CULTURE, AFB: No Acid Fast Bacilli isolated after 42 days AFB STAIN: No acid fast bacilli seen by flurochrome stain Normal [facility] Comment on above: Performed By: #### 1 1475-1 ####[facility] LABORATORYCLIA [id number] [address] [place] PROCALCITONIN (LAB)on 2021 Procalcitonin [Mass/Vol] 0.08 ng/mL Normal <0.09 [facility] Comment on above: Order Comment: Speci men Type: BLOOD SPECIMEN Result Comment: For a guided interpretation of test results, please visit the [facility] in Procalcitonin Calculator, [email or web address]. Performed By: #### P ROCAL ####[facility] LABORATORYCLIA [id number] [address] [place] Phosphate SerPl-ncon 06-01 Phosphate [Mass/Vol] 3.5 mg/dL Normal 2.7-4.8 [facility] Comment on above: Order Comment: Speci men Type: BLOOD SPECIMEN Performed By: #### 2 4321-2, 91820-9, 2776-1 ####[facility]ORATORYCLIA [id number] [address] [place] Prot CSF-mCncon 06-01-2021 Protein (CSF) [Mass/Vol] 52 mg/dL High 15-45 [facility] Comment on above: Order Comment: Speci men Type: CEREBROSPINAL FLUID Performed By: #### 2 342-4, 2880-3 ####[facility]ORATORYCLIA [id number] [address] [place] Vancomycin random [Mass/Vol] [...] #### 4 091-5 ####[facility]ORATORYCLIA [id number] [address] [place] XR CHEST 1V FRONTALon 2021 XR CHEST 1V FRONTAL Normal [facility] XR CHEST 1V FRONTAL Normal [facility] XR NECK SOFT TISSUE 2V AP/LA Ton 06-01-2021 XR NECK SOFT TISSUE 2V AP/LAT Normal [facility] XR SKULL 2V AP/LATon 022 XR SKULL 2V AP/LAT Normal [facility] ALLIED HEALTHon 05-31-2021 ALLIED HEALTH HNO ID: [id number] Author: Christina Lynne RT(R) Service: Radiology Author Type: Technologist Type: Allied Health Filed: 05/31/2021 5:48 PM Note Text: MRI tomorrow per RN. Normal [facility] ALLIED HEALTH Normal [facility] ALLIED HEALTH Normal [facility] HEALTH Normal [facility] ANES POSTPROC [...] #### 6 00-7 ####[facility] LABORATORYCLIA [id number] [address] [facility] Bacteria CSF Culton 05-31-19 22 Bacteria identified Cx Nom (CSF) CULTURE, CSF: No growth 14 days GRAM STAIN: No organisms seen Rare Polymorphonuclear leukocytes Rare Red Blood Cells Gram stain performed on cytospun specimen. Normal [facility] Comment on above: Performed By: #### 6 06-4 ####[facility]ORYCLIA [id number] [place] [address] [place] Basic metabolic 2000 panelon 05-31-2021 Anion gap [Moles/Vol] 9 mmol/L Normal 9-18 [facility] Comment on above: Order Comment: Speci men Type: BLOOD SPECIMEN Performed By: #### 2 777-1, 57534-0, ####[facility]OR[facility]ORYCLIA [id number] [address] STATES OF [facility] Calcium [Mass/Vol] 8.2 mg/dL Low 8.5-10.2 [facility] Comment on above: Order Comment: Speci men Type: BLOOD SPECIMEN Performed By: #### 2 777-1, , ####[facility]ORYCLIA [id number] [address] [place] Chloride [Moles/Vol] 110 mmol/L High 97-105 [facility] Comment on above: Order Comment: Speci men Type: BLOOD SPECIMEN Performed By: #### 2 777-1, , ####[facility]ORYCLIA [id number] [address] [place] [facility] CO2 [Moles/Vol] 27 mmol/L Normal 22-30 [facility] Comment on above: Order Comment: Speci men Type: BLOOD SPECIMEN Performed By: #### 2 777-1, , ####[facility]ORYCLIA [id number] [place] [address] [place] Creatinine [Mass/Vol] 0.85 mg/dL Normal 0.73-1.22 [facility] Comment on above: Order Comment: Speci men Type: BLOOD SPECIMEN Performed By: #### 2 777-1, 77301-2, ####[facility]ORYCLIA [id number] [place] [address] [place] GFR/1.73 sq M.predicted [...] actual GFR. Performed By: #### 2 777-1, 09831-5, 25242-7 ####[facility]ATORYCLIA [id number] [place] [address] [place] Glucose [Mass/Vol] 111 mg/dL High 74-99 [facility] Comment on above: Order Comment: Speci men Type: BLOOD SPECIMEN Result Comment: The [place] Diabetes [employer] (ADA) provides guidance for cutoff [...] Standards of Medical Care in Diabetes 2016, [place] [employer]. Diabetes Care. 2016.39(Suppl 1). Performed By: #### 2 777-1, 08648-8, 80262-8 ####[facility]ATORYCLIA [id number] [place] [address] [place] Potassium [Moles/Vol] 3.7 mmol/L Normal 3.7-5.1 [facility] Comment on above: Order Comment: Speci men Type: BLOOD SPECIMEN Performed By: #### 2 777-1, 55818-7, ####[facility]ORYCLIA [id number] [address] STATES [facility] Sodium [Moles/Vol] 146 mmol/L High 136-144 [facility] Comment on above: Order Comment: Speci men Type: BLOOD SPECIMEN Performed By: #### 2 777-1, 47692-9, ####[facility]ATORYCLIA [id number] [address] Urea nitrogen [Mass/Vol] 16 mg/dL Normal 9-24 [facility] Comment on above: Order Comment: Speci men Type: BLOOD SPECIMEN Performed By: #### 2 777-1, 32497-1, ####[facility]ATORYCLIA [id number] [address] OF [facility] CASE MGT INIT ASSESon 2021 CASE MGT INIT ASSES Normal [facility] CBC W Auto Differential pane l (Bld)on 05-31-2021 Basophils (Bld) [#/Vol] 0.04 10*3/uL Normal <0.11 [facility] Comment on above: Order Comment: Speci men Type: BLOOD SPECIMEN Performed By: #### 5 7021-8 ####[facility]ORATORYCLIA [id number] [address] [place] Basophils/100 WBC (Bld) 0.5 % Normal [facility] Comment on above: Order Comment: Speci men Type: BLOOD SPECIMEN Performed By: #### 5 7021-8 ####[facility]ORYCLIA [id number] [address] Differential cell count method Nom (Bld) Auto Normal [facility] Comment on above: Order Comment: Speci men Type: BLOOD SPECIMEN Performed By: #### 5 7021-8 ####[facility]ATORYCLIA [id number] [address] [place] Eosinophils (Bld) [#/Vol] 0.27 10*3/uL Normal <0.46 [facility] Comment on above: Order Comment: Speci men Type: BLOOD SPECIMEN Performed By: #### 5 7021-8 ####[facility]ORATORYCLIA [id number] [address] Eosinophils/100 WBC (Bld) 3.3 % Normal [facility] Comment on above: Order Comment: Speci men Type: BLOOD SPECIMEN Performed By: #### 5 7021-8 ####[facility]ORYCLIA [id number] [address] Erythrocyte distribution width (RBC) [Ratio] 15.4 % High 11.5-15.0 [facility] Comment on above: Order Comment: Speci men Type: BLOOD SPECIMEN Performed By: #### 5 7021-8 ####[facility]ATORYCLIA [id number] [address] Hematocrit (Bld) [Volume fraction] 37.9 % Low 39.0-51.0 [facility] Comment on above: Order Comment: Speci men Type: BLOOD SPECIMEN Performed By: #### 5 7021-8 ####[facility]ATORYCLIA [id number] [address] Hemoglobin (Bld) [Mass/Vol] 11.5 g/dL Low 13.0-17.0 [facility] Comment on above: Order Comment: Speci men Type: BLOOD SPECIMEN Performed By: #### 5 7021-8 ####[facility]ORYCLIA [id number] [address] IMMATURE GRAN % 0.4 % Normal [facility] Comment on above: Order Comment: Speci men Type: BLOOD SPECIMEN Performed By: #### 5 7021-8 ####[facility]ORYCLIA [id number] [address] IMMATURE GRAN ABS 0.03 k/uL Normal <0.10 [facility] Comment on above: Order Comment: Speci men Type: BLOOD SPECIMEN Performed By: #### 5 7021-8 ####[facility]ATORYCLIA [id number] [address] Lymphocytes (Bld) [#/Vol] 1.90 10*3/uL Normal 1.00-4.00 [facility] Comment on above: Order Comment: Speci men Type: BLOOD SPECIMEN Performed By: #### 5 7021-8 ####[facility]ATORYCLIA [id number] [address] Lymphocytes/100 WBC (Bld) 23.0 % Normal [facility] Comment on above: Order Comment: Speci men Type: BLOOD SPECIMEN Performed By: #### 5 7021-8 ####[facility]ORATORYCLIA [id number] [address] MCH (RBC) [Entitic mass] 28.0 pg Normal 26.0-34.0 [facility] Comment on above: Order Comment: Speci men Type: BLOOD SPECIMEN Performed By: #### 5 7021-8 ####[facility]ATORYCLIA [id number] [address] MCHC (RBC) [Mass/Vol] 30.3 g/dL Low 30.5-36.0 [facility] Comment on above: Order Comment: Speci men Type: BLOOD SPECIMEN Performed By: #### 5 7021-8 ####[facility]ATORYCLIA [id number] [address] MCV (RBC) [Entitic vol] 92.4 fL Normal 80.0-100.0 [facility] Comment on above: Order Comment: Speci men Type: BLOOD SPECIMEN Performed By: #### 5 7021-8 ####[facility]ATORYCLIA [id number] [address] Monocytes (Bld) [#/Vol] 0.60 10*3/uL Normal <0.87 [facility] Comment on above: Order Comment: Speci men Type: BLOOD SPECIMEN Performed By: #### 5 7021-8 ####[facility]ORYCLIA [id number] [address] Monocytes/100 WBC (Bld) 7.3 % Normal [facility] Comment on above: Order Comment: Speci men Type: BLOOD SPECIMEN Performed By: #### 5 7021-8 ####[facility]ORYCLIA [id number] [address] Neutrophils (Bld) [#/Vol] 5.41 10*3/uL Normal 1.45-7.50 [facility] Comment on above: Order Comment: Speci men Type: BLOOD SPECIMEN Performed By: #### 5 7021-8 ####[facility]ORYCLIA [id number] [address] Neutrophils/100 WBC (Bld) 65.5 % Normal [facility] Comment on above: Order Comment: Speci men Type: BLOOD SPECIMEN Performed By: #### 5 7021-8 ####[facility]ORYCLIA [id number] [address] Nucleated RBC (Bld) [#/Vol] 10*3/uL Normal <0.01 [facility] Comment on above: Order Comment: Speci men Type: BLOOD SPECIMEN Performed By: #### 5 7021-8 ####[facility]ORYCLIA [id number] [address] Nucleated RBC/100 WBC (Bld) [Ratio] 0.0 /100 WBC Normal 0.0 [facility] Comment on above: Order Comment: Speci men Type: BLOOD SPECIMEN Performed By: #### 5 7021-8 ####[facility]ORYCLIA [id number] [address] Platelet mean volume (Bld) [Entitic vol] 9.8 fL Normal 9.0-12.7 [facility] Comment on above: Order Comment: Speci men Type: BLOOD SPECIMEN Performed By: #### 5 7021-8 ####[facility]ORYCLIA [id number] [address] OF [facility] Platelets (Bld) [#/Vol] 251 10*3/uL Normal 150-400 [facility] Comment on above: Order Comment: Speci men Type: BLOOD SPECIMEN Performed By: #### 5 7021-8 ####[facility]ATORYCLIA [id number] [address] [place] [facility] RBC (Bld) [#/Vol] 4.10 10*6/uL Low 4.20-6.00 [facility] Comment on above: Order Comment: Speci men Type: BLOOD SPECIMEN Performed By: #### 5 7021-8 ####[facility]ATORYCLIA [id number] [address] WBC (Bld) [#/Vol] 8.25 10*3/uL Normal 3.70-11.00 [facility] Comment on above: Order Comment: Speci men Type: BLOOD SPECIMEN Performed By: #### 5 7021-8 ####[facility]ORATORYCLIA [id number] [address] CONSULTon 05-31-2021 CONSULT Normal [facility] CONSULT Normal [facility] CONSULT Normal [facility] CT BRAIN WO IVCONon 05-31-[address] BRAIN WO IVCON Normal [facility] CT BRAIN WO IVCON Normal [facility] CT CHEST WO IVCONon 05-31-[address] CHEST WO IVCON Normal [facility] Cortis SerPl-mCncon 05-31-19 22 Cortisol [Mass/Vol] 31.0 ug/dL High AM: 5.3-22.5, PM: 3.4-16.8 [facility] Comment on above: Order Comment: Speci men Type: BLOOD SPECIMEN Result Comment: Prov ided reference range is from 6-10 AM sample collection time.Cortisol Reference Range: 6-10 AM = 4.8-19.5 ug/dL, 4-8 PM = 2.5-11.9 ug/dL Performed By: #### 2 143-6, 3016-3 ####[facility]ORATORYCLIA [id number] [address] Cryptoc Ag Spec Ql LAon 05-08 Cryptococcus sp Ag LA Ql (Unsp spec) Negative Normal [facility] Comment on above: Performed By: #### 4 3228-6 ####[facility]ORATORYCLIA [id number] [address] [place] HISTORY PHYSICALon 2 HISTORY PHYSICAL Normal [facility] Magnesium SerPl-mCncon 05-31 Magnesium [Mass/Vol] 2.2 mg/dL Normal 1.7-2.3 [facility] Comment on above: Order Comment: Speci men Type: BLOOD SPECIMEN Performed By: #### 2 777-1, 41491-2, ####[facility]ATORYCLIA [id number] [address] NURSING PROGon 05-31-2021 NURSING PROG Normal [facility] NUTRITIONon 05-31-2021 NUTRITION Normal [facility] OPERATIVE NOon 05-31-2021 OPERATIVE NO Normal [facility] Phosphate SerPl-mCncon 05-31 Phosphate [Mass/Vol] 3.3 mg/dL Normal 2.7-4.8 [facility] Comment on above: Order Comment: Speci men Type: BLOOD SPECIMEN Performed By: #### 2 777-1, 73243-7, ####[facility]ATORYCLIA [id number] [address] STAPH AUREUS PCRon 2 S. aureus and MRSA panel MEGAN+probe (Nose) Normal Negative [facility] Comment on above: Order Comment: Speci men Type: SWAB OF INTERNAL NOSE Result Comment: Nega tive for Staphylococcus aureus by PCR.Negative for MRSA by PCR Performed By: #### S APCR ####[facility]ORATORYCLIA [id number] [address] [place] TSH SerPl-aCncon 05-31-2021 TSH Qn 0.829 m[IU]/L Normal 0.270-4.200 [facility] Comment on above: Order Comment: Speci men Type: BLOOD SPECIMEN Performed By: #### 2 143-6, 3016-3 ####[facility]ATORYCLIA [id number] [place] [address] [place] XR CHEST 1V FRONTALon 2021 XR CHEST 1V FRONTAL Normal [facility] XR CHEST 1V FRONTAL Normal [facility] Blood Cultureon 05-30-2021 Bacteria identified Cx Nom (Bld) Culture Result - No growth 5 days Normal [facility] Comment on above: Performed By: #### C AD #### [facility] [address] [place], [place] [id number] [place] [address] Bacteria identified Cx Nom (Bld) Sp. Request/Comment: - 8.2MLS Culture Result - No growth 5 days Normal [facility] Comment on above: Performed By: #### C AD #### [facility] [address] [place], [place] [id number] [place] [address] C-Reactive Proteinon 022 C-Reactive Protein 1.7 mg/dL High <0.9 [facility] Comment on above: Performed By: #### C RP ####[facility] [address] [place], [place] [address] CNDSon 05-30-2021 [facility] HNO ID: [id number] Author: Columba Carroll PA-C Service: Hospital Medicine Author Type: Physician Environmental Marketing Representative Type: Discharge Summary Filed: 05/30/2021 12:49 PM Note Text: ----- Attestation signed by Ayaka Menjivar MD at 06/01/2021 12:53 PM Attending Note I have personally reviewed the PA/GRANT COORDINATOR note. Agree with above assessment and plan. [...] Attending Provider: Ayaka Menjivar MD Physician Environmental Marketing Representative: Columba Carroll PA-C Consulting: Lilo Mendoza MD [...] consulted. Neurology suggested empiric abx coverage for ART COORDINATOR infection Rocephin and Vancomycin was started. Tele-neuro also suggested an MRI brain be obtained prior to LP to check SHOE RECONDITIONER shunt and decrease risk of herniation in neurosurgery capable facility. Transfer to [facility] requested. Sepsis lactate was 1.3. ABG showed pO2 67.8, placed patient on 2L NC.Follow B1, B12, and RPR pending. Transitions of Care Critical Issues: - patient transferred for [facility] for management of possible ART COORDINATOR infection and herniation. LABS AND PROCEDURES PENDING [...] q 1 (more content not included)... Normal [facility] CONSULTon 05-30-2021 CONSULT HNO ID: [id number] Author: Juan Carlos Mckenzie MD Service: Infectious [...] vertebrae with counting from the craniocervical junction. Glass Cut Off Tender: PSCShilpa Transcribe Date/Time: May 29 2021 8:59P Dictated by : CARLOS YOUNGER MD This examination was interpreted and the report reviewed and electronically signed by: CARLOS YOUNGER MD on May 29 2021 9:14PM EST ? CT CERVICAL SPINE WO (more content not included)... Normal [facility] CONSULT HNO ID: [id number] Author: Llio Mendoza MD Service: Neurology General Author Type: Physician Type: Consults Filed: 05/30/2021 10:56 AM Note Text: [facility] TeleNeurology Consult Note Patient seen using [facility]. Recommendations are placed in the chart. Please review. For questions after hours, when teleneurologist is not available, for ISELIN: Please Page [phone] for the [facility]rology Group from 12pm to 8Am Admitting Provider/Consulted by:Hermes Roca MD Time of Note:05/30/2021 Patient Name:Andrew Sifuentes Admit Date:05/29/2021 Hospital Day:0 CC: altered mental status History of Present Illness: Andrew Sifuentes is a 71 year old unknown handed male with limited information about past medical history including venous insufficiency s/p EVLT, hydrocepalus s/p SHOE RECONDITIONER shunt in 1987 with multiple revisions and [...] Reflexes Right Lef (more content not included)... [facility] CONSULT PROGon 05-30-2021 CONSULT PROG [facility] CONSULT PROG HNO ID: [id number] Author: Shannon Gutierres [facility] Service: Pharmacy Author Type: Pharmacist Type: Consult Progress Note Filed: 05/30/2021 2:35 PM Note Text: PHARMACY VANCOMYCIN DOSING NOTE Patient Name: Andrew Sifuentes Admission Date: 05/29/2021 Date of Consult: 05/30/2021 Time of Consult: 2:32 PM Indication: possible ART COORDINATOR infection Goal Range: 15-20 mcg/mL RECOMMENDATIONS/PLAN: Pharmacy [...] any questions, please contact inpatient pharmacy at [phone]. Age: [age] year old Allergies: ALLERGIES Allergen [...] Vancomycin Levels: No results found for: YANDELGHULAM Shannon Gutierres, [facility] Normal [facility] Creatinineon 05-30-2021 Creatinine [Mass/Vol] 0.86 mg/dL Normal 0.73-1.22 [facility] Comment on above: Performed By: #### C RET1 ####[facility] [address] [place] [phone] eGFR- Amer. >60 [facility] Comment on above: Performed By: #### C RET1 ####[facility] [address] [place] [phone] eGFR-All Other Races >60 Normal [facility] [...] at [email or web address]. Performed By: #### C RET1 ####[facility] [address] [place] [phone] Crypto Antigen Deton 01-24-2 022 Crypto Antigen Det Sp. Request/Comment: - SST Test Result - Duplicate request Account Credited [facility] Comment on above: Performed By: #### C AD #### [facility] [address] [place] [address] [facility] [address] [place], [place] [address] Crypto Antigen Det Sp. Request/Comment: - SST Test Result - Cryptococcal antigen detection result: Negative By latex agglutination [facility] Comment on above: Performed By: #### C AD #### [facility] [address] [place] [address] [facility] [address] [place] [address] ED NOTEon 05-30-2021 ED NOTE HNO ID: [id number] Author: Aletha Lopez RN Service: ? Author Type: Registered Nurse Type: ED Notes Filed: 05/29/2021 11:16 PM Note Text: Patient changed for incontinent urine, labs redrawn and sent. Patient aware of plan to be admitted and agrees with plan [facility] HISTORY PHYSICALon HISTORY PHYSICAL Normal [facility] HISTORY PHYSICAL HNO ID: [id number] Author: Hermes Roca MD Service: Hospital Medicine Author Type: Physician Type: HANDP Filed: 05/30/2021 1:03 AM Note Text: DEPARTMENT OF HOSPITAL MEDICINE HISTORY AND PHYSICAL EXAM SERVICE DATE: 05/29/2021 SERVICE TIME: 11:18 PM Primary Care Physician: Mateus Burris MD NIGHT AND WEEKEND COVERAGE: Please page [phone] until 7:30am this morning. After 7:30am please check the treatment team banner and page the appropriate service. Subjective CHIEF COMPLAINT: Fall HPI: This is a 71 year old male with PMH of asthma, venous insufficiency s/p EVLT, obstructive hydrocepalus s/p SHOE RECONDITIONER shunt in 1987 with multiple revisions and [...] recent imaging (more content not included)... Normal [facility] Magnesium SerPl-mCncon 05-30 Magnesium [Mass/Vol] 2.5 mg/dL High 1.7-2.3 [facility] Comment on above: Order Comment: Speci men Type: BLOOD SPECIMEN Performed By: #### 1 9123-9, 2777-1 ####[facility]ORATORYCLIA [id number] [place] [id number] [place] NURSING PROGon 05-30-2021 NURSING PROG HNO ID: [id number] Author: Precious Cervantes RN Service: ? Author Type: Registered Nurse Type: Nursing Progress Note Filed: 05/30/2021 11:26 AM Note Text: Nursing Progress Note Patient Name: Andrew Sifuentes Patient Location: [id number] Daily Note: 0700- Report received from nightman RN, patient resting in bed at this time, call light within reach, bed low and locked. Asked the patient to state his name because nightman RN was unable to complete his admission [...] This note was completed by: Precious Cervantes [facility] NURSING PROG HNO ID: [id number] Author: Lyubov Day RN Service: ? Author Type: Registered Nurse Type: Nursing Progress Note Filed: 05/30/2021 1:27 AM Note Text: Nursing Progress Note Patient Name: Andrew Sifuentes Patient Location: [id number] 0100: Patient is unresponsive to questions. Patient [...] This note was completed by: Lyubov Day Normal [facility] Phosphate SerPl-mCncon 05-30 Phosphate [Mass/Vol] 3.5 mg/dL Normal 2.7-4.8 [facility] Comment on above: Order Comment: Speci men Type: BLOOD SPECIMEN Performed By: #### 1 9123-9, 2777-1 ####[facility]ORATORYCLIA [id number] [place] [address] [place] Sepsis Lactateon 05-30-2021 Sepsis Lactate 1.5 mmol/L Normal 0.5-2.0 [facility] Comment on above: Performed By: #### S LACT ####[facility] [address] [place] [phone] Syphilis Ttl w/Reflxon 05-30 Syphilis Interp Cannot exclude recen t Treponemal infection if specimen collected within 7 to 10 days after appearance of suspect lesions or 2 to 3 weeks after an exposure. Clinical correlation is required. Normal [facility] Comment on above: Performed By: #### S Jennifer RUCKERB ####[facility] [place], [place] [phone] Syphilis Screen Rslt Non-Reactive Normal Non Reactive [facility] Comment on above: Performed By: #### S ALKA B1WB ####[facility] [place], [place] [phone] THERAPY NTon 05-30-2021 THERAPY NT HNO ID: [id number] Author: Bette Jimenez OTR/L Service: Occupational Therapy Author Type: Occupational Therapist Type: Therapy (PT/OT/Speech/Resp) Filed: 05/30/2021 10:29 AM Note Text: OCCUPATIONAL THERAPY MISSED VISIT SERVICE DATE: 05/30/2021 SERVICE TIME: 1017 to 1019 ROOM: [place] [address] Attempted Evaluation. Patient not seen due to Not following commands. Per nursing patient was seen by neuro and they are talking about having him transferred to [facility] secondary to shunt concerns. Will re attempt in the event patient continues to be admitted at [facility] and is able to participate. SIGNATURE: RADHA Andres/L PATIENT NAME: Andrew Sifuentes DATE: May 30, 2021 TIME: 10:21 AM [facility] THERAPY NT HNO ID: [id number] Author: Bette Velasquez PT Service: Physical Therapy Author Type: Physical Therapist Type: Therapy (PT/OT/Speech/Resp) Filed: 05/30/2021 8:42 AM Note Text: PHYSICAL THERAPY MISSED VISIT SERVICE DATE: 05/30/2021 SERVICE TIME: 0840 to 0840 ROOM: [place] [address] Attempted Evaluation. Patient not seen due to (pt difficult to awake per RN, very lethargic). Will re-attempt when schedule permits. SIGNATURE: Bette Velasquez PT PATIENT NAME: Andrew Sifuentes DATE: May 30, 2021 TIME: 8:41 AM Normal [facility] Toxicology Screen,Uron 05-30 Amphetamines, Urine Negative Normal Negative [facility] Comment on above: Result Comment: Cuto ff threshold at 1000 ng/mL. Performed By: #### C AD #### [facility] [address] [place] [address] [facility] [address] [place], [place] [address] Barbiturates, Urine Negative Normal Negative [facility] Comment on above: Result Comment: Cuto ff threshold at 200 ng/mL. Performed By: #### C AD #### [facility] [address] [place] [address] [facility] [address] [place] [address] Benzodiazepines, Ur Negative Normal Negative [facility] Comment on above: Result Comment: Cuto ff threshold at 200 ng/mL. Performed By: #### C AD #### [facility] [address] [place] [id number] [place] [address] Cannabinoids, Urine Negative Normal Negative [facility] Comment on above: Result Comment: Cuto ff threshold at 50 ng/mL. Performed By: #### C AD #### [facility] [address] [place], [place] [address] [place] [address] Cocaine, Urine Negative Normal Negative [facility] Comment on above: Result Comment: Cuto ff threshold at 300 ng/mL. Performed By: #### C AD #### [facility] [place] [id number] [place] [address] Opiates, Urine Negative Normal Negative [facility] Comment on above: Result Comment: Cuto ff threshold at 300 ng/mL. Performed By: #### C AD #### [facility] [place] [id number] [place] [address] Oxycodone, Urine Negative Normal Negative [facility] Comment [...] on the same specimen through Client Services ([phone]) if contacted within 48 hours of initial testing. [1]Substance Abuse and Mental Health Services Administration (2012). Clinical Drug Testing in Primary Care Technical Assistance Publication Series 32. Department of Health and Human Services, [place], p.10. Performed By: #### C AD #### [facility] [address] [place], [place] [id number] [place] [address] Phencyclidine, Urine Negative Normal Negative [facility] Comment on above: Result Comment: Cuto ff threshold at 25 ng/mL. Performed By: #### C AD #### [facility] [address] [place] [phone] Troponin Ton 05-30-2021 Troponin T <0.010 Normal 0.000-0.029 [facility] Comment on above: Performed By: #### T NT ####[facility] [address] [place], [place] [phone] Urinalysison 05-30-2021 Bilirubin, Urine Negative Normal Negative [facility] Comment on above: Performed By: #### C AD #### [facility] [address] [place], [place] [id number] [place] [address] Clarity (U) Slightly Cloudy Critically abnormal Clear [facility] Comment on above: Performed By: #### C AD #### [facility] [address] [place], [place] [id number] [place] [address] Color (U) Yellow Normal Yellow [facility] Comment on above: Performed By: #### C AD #### [facility] [address] [place], [place] [id number] [place] [address] Glucose Ql (U) Negative Normal Negative [facility] Comment on above: Performed By: #### C AD #### [facility] [address] [place] [address] [facility] [address] [place], [place] [address] Hemoglobin/Blood,Ur Negative Normal Negative [facility] Comment on above: Performed By: #### C AD #### [facility] [address] [place] [address] [facility] [address] [place], [place] [address] Ketones Ql (U) Negative Normal Negative [facility] Comment on above: Performed By: #### C AD #### [facility] [address] [place] [address] [facility] [address] [place] [address] Leukest Negative Normal Negative [facility] Comment on above: Performed By: #### C AD #### [facility] [address] [place] [address] [facility] [address] [place], [place] [address] Nitrite Ql (U) Negative Normal Negative [facility] Comment on above: Performed By: #### C AD #### [facility] [address] [place] [address] [facility] [address] [place], [place] [address] pH (U) 8.5 [pH] High 5.0-8.0 [facility] Comment on above: Performed By: #### C AD #### [facility] [address] [place] [address] [facility] [address] [place], [place] [address] Protein, Urine Negative Normal Negative [facility] Comment on above: Performed By: #### C AD #### [facility] [address] [place] [address] [facility] [address] [place], [place] [address] Specific [place] [address], Ur 1.015 Normal 1.005-1.030 [facility] Comment on above: Performed By: #### C AD #### [facility] [address] [place] [address] [place] [address] [place], [place] [address] Urobilinogen Qn (U) 0.2 {Marianne'U}/dL Normal 0.2-1.0 [facility] Comment on above: Performed By: #### C AD #### [facility] [address] [place] [address] [place] [address] Vitamin B1, Whole Blon 05-30 Vitamin B1 (TDP), WB 207.1 nmol/L Normal 84.0-213.0 [facility] Comment on above: Result Comment: This assay measures the concentration of thiamine diphosphate (TDP), the primary active form of vitamin B1. Approximately 90 percent of vitamin B1 present in whole blood is TDP. Thiamine and thiamine monophosphate, which comprise the remaining 10 percent, are not measured. This test was developed and its performance characteristics determined by [facility]'s Isrrael Perez [facility] [place] ( [facility]). It has not been cleared or approved by the FDA. [facility] is regulated under CLIA as qualified to perform high complexity testing. This test is used for clinical purposes. It should not be regarded as investigational or for research. Performed By: #### S YPHTX, B1WB ####[place] [id number] [place], [place] [phone] Vitamin B12on 05-30-2021 Cobalamin (Vitamin B12) [Mass/Vol] 494 pg/mL Normal 232-1245 [facility] Comment on above: Performed By: #### C AD #### [facility] [place] [address] [id number] ALLIED HEALTHon 05-29-2021 ALLIED HEALTH HNO ID: [id number] Author: Danica Jose RT(R) Service: Radiology Author [...] RT Kitty(R) May 29, 2021 8:51 PM [facility] HNO ID: [id number] Author: Markie Fish Service: ? Author Type: Sand Cutter Type: Allied Health Filed: 05/29/2021 8:39 PM [...] Fish May 29, 2021 8:38 PM Normal [facility] CBC and Differentialon 05-29 Abs Baso 0.05 k/uL Normal <0.11 [facility] Comment on above: Performed By: #### C MP, MG1, CBCDIF ####[facility] [address] [place], [place] [phone] Abs Keith 0.72 k/uL Normal <0.87 [facility] Comment on above: Performed By: #### C MP, MG1, CBCDIF ####[facility] [address] [place] [address] Abs Neut 7.86 k/uL High 1.45-7.50 [facility] Comment on above: Performed By: #### C MP, MG1, CBCDIF ####[place] [address] Absolute nRBC <0.01 Normal <0.01 [facility] Comment on above: Performed By: #### C MP, MG1, CBCDIF ####[facility] [address] [place] [address] Basophils/100 WBC (Bld) 0.5 % Normal [facility] Comment on above: Performed By: #### C MP, MG1, CBCDIF ####[place] [address] DTYPE Auto Diff Normal [facility] Comment on above: Performed By: #### C MP, MG1, CBCDIF ####[place] [address] Eosinophils (Bld) [#/Vol] 0.10 10*3/uL Normal <0.46 [facility] Comment on above: Performed By: #### C MP, MG1, CBCDIF ####[place] [address] Eosinophils/100 WBC (Bld) 0.9 % Normal [facility] Comment on above: Performed By: #### C MP, MG1, CBCDIF ####[place] [address] Erythrocyte distribution width (RBC) [Ratio] 15.5 % High 11.5-15.0 [facility] Comment on above: Performed By: #### C MP, MG1, CBCDIF ####[place] [address] Hematocrit (Bld) [Volume fraction] 41.6 % Normal 39.0-51.0 [facility] Comment on above: Performed By: #### C MP, MG1, CBCDIF ####[facility] [address] [place], [place] [address] Hemoglobin (Bld) [Mass/Vol] 12.7 g/dL Low 13.0-17.0 [facility] Comment on above: Performed By: #### C MARÍA ELENA MG1, CBCDIF ####[facility] [address] [place] [address] Lymphocytes (Bld) [#/Vol] 2.04 10*3/uL Normal 1.00-4.00 [facility] Comment on above: Performed By: #### C MP MG1, CBCDIF ####[facility] [address] [place] [address] Lymphocytes/100 WBC (Bld) 18.9 % Normal [facility] Comment on above: Performed By: #### C MARÍA ELENA MG1, CBCDIF ####[place] [address] MCH 27.3 pG Normal 26.0-34.0 [facility] Comment on above: Performed By: #### C MARÍA ELENA MG1, CBCDIF ####[place] [address] MCHC (RBC) [Mass/Vol] 30.5 g/dL Normal 30.5-36.0 [facility] Comment on above: Performed By: #### C MP MG1, CBCDIF ####[place] [address] MCV (RBC) [Entitic vol] 89.5 fL Normal 80.0-100.0 [facility] Comment on above: Performed By: #### C MP MG1, CBCDIF ####[facility] [address] [place] [address] Monocytes/100 WBC (Bld) 6.7 % Normal [facility] Comment on above: Performed By: #### C MP, MG1, CBCDIF ####[place] [address] Neutrophils/100 WBC (Bld) 73.0 % Normal [facility] Comment on above: Performed By: #### C MP, MG1, CBCDIF ####[facility] [address] [place] [address] NRBCs 0.0 /100 WBC Normal 0 [facility] Comment on above: Performed By: #### C MP, MG1, CBCDIF ####[facility] [address] [place] [address] Platelet mean volume (Bld) [Entitic vol] 10.1 fL Normal 9.0-12.7 [facility] Comment on above: Performed By: #### C MP, MG1, CBCDIF ####[facility] [address] [place], [place] [address] Platelets (Bld) [#/Vol] 291 10*3/uL Normal 150-400 [facility] Comment on above: Performed By: #### C MP, MG1, CBCDIF ####[facility] [address] [place], [place] [address] RBC (Bld) [#/Vol] 4.65 10*6/uL Normal 4.20-6.00 [facility] Comment on above: Performed By: #### C MP, MG1, CBCDIF ####[facility] [address] [place], [place] [address] WBC (Bld) [#/Vol] 10.77 10*3/uL Normal 3.70-11.00 [facility] Comment on above: Performed By: #### C MP, MG1, CBCDIF ####[facility] [address] [place], [place] [address] CT BRAIN WO IVCONon 05-29-19 CT BRAIN WO IVCON * * *Final Report* * * DATE OF EXAM: May 29 2021 8:42PM [facility] [place] BRAIN WO IVCON / PROCEDURE REASON: Head trauma, headache * * * * Physician Interpretation * * * * EXAMINATION: CT CERVICAL SPINE WO IVCON, CT BRAIN WO IVCON CLINICAL HISTORY: C-spine trauma, NEXUS/CCR positive (accession [id number]), Head trauma, headache (accession [id number]) TECHNIQUE: Serial axial unenhanced images were obtained from the vertex to the foramen magnum. Spiral, high resolution axial unenhanced images were obtained from the skull base to the cervicothoracic junction with sagittal and coronal planar reconstructions. Dose-Length Product (DLP): 2132 mGy*cm. CT Dose Reduction Employed: Automated exposure control (AEC) COMPARISON: 08/13/[address] RESULT: BRAIN: Post-operative change: Right parietal approach SHOE RECONDITIONER shunt is intact. The intracranial fragments of [...] vertebrae with counting from the craniocervical junction. Glass Cut Off Tender: OG Transcribe Date/Time: May 29 2021 8:59P Dictated by : CARLOS YOUNGER MD This examination was interpreted and the report reviewed and electronically signed by: CARLOS YOUNGER MD on May 29 2021 9:14PM EST [id number] [facility] CT CERVICAL SPINE WO IVCONon 05-29-2021 CT CERVICAL SPINE WO IVCON * * *Final Report* * * DATE OF EXAM: May 29 2021 8:42PM [facility] [place] CT CERVICAL SPINE WO IVCON / PROCEDURE REASON: C-spine trauma, NEXUS/CCR positive * * * * Physician Interpretation * * * * EXAMINATION: CT CERVICAL SPINE WO IVCON, CT BRAIN WO IVCON CLINICAL HISTORY: C-spine trauma, NEXUS/CCR positive (accession [id number]), Head trauma, headache (accession [id number]) TECHNIQUE: Serial axial unenhanced images were obtained from the vertex to the foramen magnum. Spiral, high resolution axial unenhanced images were obtained from the skull base to the cervicothoracic junction with sagittal and coronal planar reconstructions. Dose-Length Product (DLP): 2132 mGy*cm. CT Dose Reduction Employed: Automated exposure control (AEC) COMPARISON: 08/13/[address] RESULT: BRAIN: Post-operative change: Right parietal approach SHOE RECONDITIONER shunt is intact. The intracranial fragments of [...] vertebrae with counting from the craniocervical junction. Glass Cut Off Tender: [facility] Transcribe Date/Time: May 29 2021 8:59P Dictated by : CARLOS YOUNGER MD This examination was interpreted and the report reviewed and electronically signed by: CARLOS YOUNGER MD on May 29 2021 9:14PM EST [id number] [facility] Cepheid Bill only (EXCFR)on 05-29-2021 Cepheid Bill only (EXCFR) Billed for services performed [facility] Comment on above: Performed By: #### C AD #### [facility] [address] [place] [address] [facility] [address] [place], [place] [address] Comp Metabolic Panelon 05-29 Albumin [Mass/Vol] 4.1 g/dL Normal 3.9-4.9 [facility] Comment on above: Performed By: #### C MP ####[facility] [address] [place] [address] ALP [Catalytic activity/Vol] 86 U/L Normal 38-113 [facility] Comment on above: Performed By: #### C MP ####[facility] [address] [place] [address] ALT [Catalytic activity/Vol] 15 U/L Normal 10-54 [facility] Comment on above: Performed By: #### C MP ####[facility] [address] [place] [address] Anion gap [Moles/Vol] 9 mmol/L Normal 9-18 [facility] Comment on above: Performed By: #### C MP ####[facility] [address] [place] [address] AST [Catalytic activity/Vol] 22 U/L Normal 14-40 [facility] Comment on above: Performed By: #### C MP ####[facility] [address] [place] [address] Bilirubin [Mass/Vol] 0.2 mg/dL Normal 0.2-1.3 [facility] Comment on above: Performed By: #### C MP ####[facility] [address] [place] [address] Calcium [Mass/Vol] 9.1 mg/dL Normal 8.5-10.2 [facility] Comment on above: Performed By: #### C MP ####[facility] [address] [place] [address] Chloride [Moles/Vol] 103 mmol/L Normal 97-105 [facility] Comment on above: Performed By: #### C MP ####[facility] [address] [place] [address] CO2 [Moles/Vol] 29 mmol/L Normal 22-30 [facility] Comment on above: Performed By: #### C MP ####[facility] K[address]7087 [address] Creatinine [Mass/Vol] 0.89 mg/dL Normal 0.73-1.22 [facility] Comment on above: Performed By: #### C MP ####[facility] [address] [place] [address] eGFR- Amer. >60 Normal [facility] Comment on above: Performed By: #### C MP ####[facility] S[address]gt5214 [address] eGFR-All Other Races >60 Normal [facility] [...] at [email or web address]. Performed By: #### C MP ####[facility] [address] Glucose [Mass/Vol] 120 mg/dL High 74-99 [facility] Comment on above: Result Comment: The [place] [employer] (ADA) provides guidance for cutoff [...] Standards of Medical Care in Diabetes 2016, [employer] [place] [employer]. Diabetes Care. 2016.39(Suppl 1). Performed By: #### C MP ####[facility] [address] [place] [address] Potassium [Moles/Vol] 4.2 mmol/L Normal 3.7-5.1 [facility] Comment on above: Performed By: #### C MP ####[facility] [address] [place] [address] Protein [Mass/Vol] 7.1 g/dL Normal 6.3-8.0 [facility] Comment on above: Performed By: #### C MP ####[place] [address] Sodium [Moles/Vol] 141 mmol/L Normal 136-144 [facility] Comment on above: Performed By: #### C MP ####[facility] [address] [place] [address] Urea nitrogen [Mass/Vol] 11 mg/dL Normal 9-24 [facility] Comment on above: Performed By: #### C MP ####[place] [address] Albumin [Mass/Vol] 4.1 g/dL Normal 3.9-4.9 [facility] Comment on above: Performed By: #### C MP, MG1, CBCDIF ####[facility] [address] [place] [address] ALP [Catalytic activity/Vol] 86 U/L Normal 38-113 [facility] Comment on above: Performed By: #### C MP, MG1, CBCDIF ####[place] [address] ALT Unable to assay due to interference from hemolysis. Suggest reorder as clinically indicated. Normal 10-54 [facility] Comment on above: Result Comment: Call ed to LISA Rea at 2129 on 05.29.21 by Sabino Performed By: #### C MP, MG1, CBCDIF ####[facility] [address] [place] [address] Anion gap [Moles/Vol] 12 mmol/L Normal 9-18 [facility] Comment on above: Performed By: #### C MP, MG1, CBCDIF ####[facility] [address] [place] [address] AST Unable to assay due to interference from hemolysis. Suggest reorder as clinically indicated. Normal 14-40 [facility] Comment on above: Result Comment: Call ed to ED Álvaro at 2129 on 05.29.21 by Sabino Performed By: #### C MP, MG1, CBCDIF ####[facility] [address] [place] [address] Bilirubin [Mass/Vol] 0.2 mg/dL Normal 0.2-1.3 [facility] Comment on above: Performed By: #### C MP, MG1, CBCDIF ####[facility] S[address] [place] [address] Calcium [Mass/Vol] 9.0 mg/dL Normal 8.5-10.2 [facility] Comment on above: Performed By: #### C MP, MG1, CBCDIF ####[facility] [address]zb[address] [place] [address] Chloride [Moles/Vol] 102 mmol/L Normal 97-105 [facility] Comment on above: Performed By: #### C MP, MG1, CBCDIF ####[facility] [address] [place] [address] CO2 [Moles/Vol] 27 mmol/L Normal 22-30 [facility] Comment on above: Performed By: #### C MP, MG1, CBCDIF ####[facility] [address] [place] [address] Creatinine [Mass/Vol] 0.75 mg/dL Normal 0.73-1.22 [facility] Comment on above: Performed By: #### C MP, MG1, CBCDIF ####[facility] Hgvsldlxhl4668 [address] eGFR- Amer. >60 Normal [facility] Comment on above: Performed By: #### C MP, MG1, CBCDIF ####[facility] [address] [place] [phone] eGFR-All Other Races >60 Normal [facility] [...] Performed By: #### C MP, MG1, CBCDIF ####[facility] [address] [place] [phone] Glucose [Mass/Vol] 112 mg/dL High 74-99 [facility] Comment on above: Result Comment: The [place] Diabetes [employer] (ADA) provides guidance for cutoff [...] Standards of Medical Care in Diabetes 2016, [place] [employer]. Diabetes Care. 2016.39(Suppl 1). Performed By: #### C MP, MG1, CBCDIF ####[facility] [address] [place] [phone] Potassium Unable to assay due to interference from hemolysis. Suggest reorder as clinically indicated. Normal 3.7-5.1 [facility] Comment on above: Result Comment: Call ed to ED Álvaro at 2129 on 05.29.21 by Sabino Performed By: #### C MP, MG1, CBCDIF ####[facility] Ag[address]eu8995 [address]721-[address]160 Protein [Mass/Vol] 7.3 g/dL Normal 6.3-8.0 [facility] Comment on above: Performed By: #### C MP, MG1, CBCDIF ####[facility] S[address]qlf1965 [address]721-5160 Sodium [Moles/Vol] 141 mmol/L Normal 136-144 [facility] Comment on above: Performed By: #### C MP, MG1, CBCDIF ####[facility] Udettjgmad9691 [address]721-5160 Urea nitrogen [Mass/Vol] 11 mg/dL Normal 9-24 [facility] Comment on above: Performed By: #### C MP, MG1, CBCDIF ####[facility] Ywp[address]fsz3279 [address]721-5160 ED PROV NOTEon 05-29-2021 ED PROV NOTE HNO ID: [id number] Author: Shanell Slaughter MD Service: ? Author [...] No radiographic evidence of acute cardiopulmonary disease. Glass Cut Off Tender: [facility] Transcribe Date/Time: May 29 2021 8:53P [...] vertebrae with counting from the craniocervical junction. Glass Cut Off Tender: [facility] Transcribe Date/Time: May 29 2021 8:59P [...] vertebrae with counting from the craniocervical junction. Glass Cut Off Tender: [facility] Transcribe Date/Time: May 29 (more content not included)... Normal [facility] ED PROV NOTE HNO ID: [id number] Author: Flavio Pandya DO Service: Emergency Medicine Author Type: Physician Type: ED Provider Notes Filed: 05/29/2021 7:10 PM Note Text: ED Provider Note Patient Name: Andrew Sifuentes SERVICE DATE: 05/29/21 History Patient presents with: Fall 71 yo male non-smoker, hx of HTN, 2 SHOE RECONDITIONER shunts, PE (not on anticoagulation now), asthma, [...] with assistance from bedside clinician. Provider Location: [facility] Patient Location: Outpatient Hospital Physical Exam Vital [...] DO Flavio Pandya, DO 05/29/211909 Normal [facility] EXCOVD, Flu A/B, RSV (On int erfaces 1102,1120)on 05-29-2021 Influenza A PCR Negative Normal [facility] Comment on above: Performed By: #### C AD #### [facility] [address] [place], [place] [address] [place] [address] Laboratories [address] [place] [address] Influenza B PCR Negative Normal [facility] Comment on above: Performed By: #### C AD #### [facility] [address] [place] [address] RSV PCR Negative Normal [facility] Comment on above: Result Comment: This test has been authorized by [facility] under an Emergency Use Authorization (EUA). Performed By: #### C AD #### [facility] [address] [place] [address] SARS-CoV-2 (COVID-19) RNA MEGAN+probe Ql (Unsp spec) UPPER RESPIRATORY TRACT SWAB Normal [facility] Comment on above: Performed By: #### C AD #### [facility] [address] [place] [address] SARS-CoV-2 (COVID-19) RNA MEGAN+probe Ql (Unsp spec) Negative for COVID19 (SARS CoV2) by RT-PCR or equivalent method. Normal Negative for COVID19 (SARS CoV2) by RT-PCR or equivalent method. [facility] Comment on above: Result Comment: This test has been authorized by [facility] under an Emergency Use Authorization (EUA). Performed By: #### C AD #### [facility] [address] [place] [address] Magnesiumon 05-29-2021 Magnesium [Mass/Vol] 2.2 mg/dL Normal 1.7-2.3 [facility] Comment on above: Performed By: #### C MP, MG1, CBCDIF ####[facility] [address] [place] [phone] NT Pro BNPon 05-29-2021 PRO B Natr Peptide 303 pg/mL High <125 [facility] Comment on above: Performed By: #### N TBNP ####[facility] [address] [place] [phone] Troponin Ton 05-29-2021 Troponin T <0.010 Normal 0.000-0.029 [facility] Comment on above: Performed By: #### T NT ####[facility] [address]87 [place] [phone] Troponin T Unable to assay due to interference from hemolysis. Suggest reorder as clinically indicated. Normal 0.000-0.029 [facility] Comment on above: Result Comment: Call ed to ED Álvaro at 2129 on 05.29.21 by Sabino Performed By: #### T NT ####[facility] Ujjsw[address]mnsw4706 [phone] XR CHEST 1V FRONTAL PORTon 0 [...] No radiographic evidence of acute cardiopulmonary disease. Glass Cut Off Tender: OG Transcribe Date/Time: May 29 2021 8:53P Dictated by : ROLY BANUGRA MD This examination was interpreted and the report reviewed and electronically signed by: ROLY BANGURA MD on May 29 2021 8:54PM EST [id number] Normal [facility] COMPREHENSIVE PANELon 2020 Albumin [Mass/Vol] 3.9 g/dL Normal 3.4 - 5.0 [facility] Comment on above: Order Comment: PATIE NT FASTING Performed By: #### C MP #### [facility] [address] [place] [address] ALP [Catalytic activity/Vol] 71 U/L Normal 33 - 136 [facility] Comment on above: Order Comment: PATIE NT FASTING Performed By: #### C MP #### [facility] [address] [place] [address] ALT [Catalytic activity/Vol] 19 U/L Normal 10 - 52 [facility] Comment on above: Order Comment: PATIE NT FASTING Result Comment: Nasima ents treated with Sulfasalazine may generate falsely decreased results for ALT. Performed By: #### C MP #### [facility] [address] [place] [address] Anion gap [Moles/Vol] 13 mmol/L Normal 10 - 20 [facility] Comment on above: Order Comment: PATIE NT FASTING Performed By: #### C MP #### [facility] [address] [place] [address] AST [Catalytic activity/Vol] 20 U/L Normal 9 - 39 [facility] Comment on above: Order Comment: PATIE NT FASTING Performed By: #### C MP #### [facility] [address] [place] [address] Bilirubin [Mass/Vol] 0.6 mg/dL Normal 0.0 - 1.2 [facility] Comment on above: Order Comment: PATIE NT FASTING Performed By: #### C MP #### [facility] [address] [place] [address] Calcium [Mass/Vol] 9.0 mg/dL Normal 8.6 - 10.6 [facility] Comment on above: Order Comment: PATIE NT FASTING Performed By: #### C MP #### [facility] [address] [place] [address] Chloride [Moles/Vol] 103 mmol/L Normal 98 - 107 [facility] Comment on above: Order Comment: PATIE NT FASTING Performed By: #### C MP #### [facility] [address] [place] [address] Creatinine [Mass/Vol] 0.94 mg/dL Normal 0.50 - 1.30 [facility] Comment on above: Order Comment: PATIE NT FASTING Performed By: #### C MP #### [facility] [address] [place] [address] GFR- AM. >60 Normal >60 [facility] Comment on above: Order Comment: PATIE NT FASTING Result Comment: CALC ULATIONS OF ESTIMATED GFR ARE PERFORMED USING THE MDRD STUDY EQUATION FOR THE IDMS-TRACEABLE CREATININE METHODS. CLIN CHEM 2007;53:766-72 Performed By: #### C MP #### [facility] [address] [place] [address] GFR-NON AM. >60 Normal >60 [facility] Comment on above: Order Comment: PATIE NT FASTING Performed By: #### C MP #### [facility] [address] [place] [address] Glucose [Mass/Vol] 85 mg/dL Normal 74 - 99 [facility] Comment on above: Order Comment: PATIE NT FASTING Performed By: #### C MP #### [facility] [address] [place] [address] HCO3 (Bld) [Moles/Vol] 30 mmol/L Normal 21 - 32 [facility] Comment on above: Order Comment: PATIE NT FASTING Performed By: #### C MP #### [facility] [address] [place] [address] Potassium [Moles/Vol] 4.1 mmol/L Normal 3.5 - 5.3 [facility] Comment on above: Order Comment: PATIE NT FASTING Performed By: #### C MP #### [facility] [address] [place] [address] Protein [Mass/Vol] 6.6 g/dL Normal 6.4 - 8.2 [facility] Comment on above: Order Comment: PATIE NT FASTING Performed By: #### C MP #### [facility] [address] [place] [address] Sodium [Moles/Vol] 142 mmol/L Normal 136 - 145 [facility] Comment on above: Order Comment: PATIE NT FASTING Performed By: #### C MP #### [facility] [address] [place] [address] Urea nitrogen [Mass/Vol] 14 mg/dL Normal 6 - 23 [facility] Comment on above: Order Comment: PATIE NT FASTING Performed By: #### C MP #### [facility] [address] [place] [address] LIPID PANEL (CORONARY RISK 2 )on 09-03-2020 Cholesterol [Mass/Vol] 210 mg/dL High 0 - 199 [facility] Comment on above: Order Comment: PATIE [...] Performed By: #### L IPID #### [facility] [address] [place] [address] Cholesterol in HDL [Mass/Vol] 50.1 mg/dL Normal [facility] Comment on above: Order Comment: PATIE NT FASTING Result Comment: . AGE VERY LOW LOW NORMAL HIGH 0-19 Y < 35 < 40 40-45 ---- 20-24 Y ---- < 40 >45 ---- >24 Y ---- < 40 40-60 >60 . Performed By: #### L IPID #### [facility] [address] [place] [address] Cholesterol in LDL [Mass/Vol] 130 mg/dL High 0 - 99 [facility] Comment on above: Order Comment: PATIE NT FASTING Result Comment: . NEAR BORD AGE DESIRABLE OPTIMAL HIGH HIGH VERY HIGH 0-19 Y 0 - 109 --- 110-129 >/= 130 ---- 20-24 Y 0 - 119 --- 120-159 >/= 160 ---- >24 Y 0 - 99 100-129 130-159 160-189 >/=190 . Performed By: #### L IPID #### [facility] [address] [place] [address] Cholesterol in VLDL [Mass/Vol] 30 mg/dL Normal 0 - 40 [facility] Comment on above: Order Comment: PATIE NT FASTING Performed By: #### L IPID #### [facility] [address] [place] [address] Cholesterol.total/Chol esterol in HDL [Mass ratio] 4.2 {ratio} Normal [facility] Comment on above: Order Comment: PATIE NT FASTING Result Comment: REF VALUES DESIRABLE < 3.4 HIGH RISK > 5.0 Performed By: #### L IPID #### [facility] [address] [place] [address] Triglyceride [Mass/Vol] 152 mg/dL High 0 - 149 [facility] Comment on above: Order Comment: PATIE [...] Performed By: #### L IPID #### [facility] [address] [place] [address] PROSTATE SPEC.AG,SCREENon PROSTATE SPEC.AG,SCREEN 0.37 ng/mL Normal 0.00 - 4.00 [facility] Comment on above: Order Comment: PATIE NT FASTING Result Comment: The FDA requires that the method used for PSA assay be reported to the physician. Values obtained with different assay methods must not be used interchangeably. This test was performed at [facility] using the Siemens Vidapp PSA method, which is a sandwich immunoassay using chemiluminescence for quantitation. The assay is approved for measurement of prostate-specific antigen (PSA) in serum and may be used in conjunction with a digital rectal examination in men 50 years and older as an aid in detection of prostate cancer. 9-Yhdig-ilehhbwjm inhibitors (e.g. Proscar, Finasteride, Avodart, Dutasteride and Elizabeth) for the treatment of BPH have been shown to lower PSA levels by an average of 50% after 6 months of treatment. Performed By: #### [facility] #### [facility] [address] [place] [address] TSH WITH REFLEX TO FREE T4 I F ABNORMALon 09-03-2020 TSH Qn 0.97 m[IU]/L Normal 0.44 - 3.98 [facility] Comment on above: Order Comment: PATIE NT FASTING Result Comment: TSH testing is performed using different testing methodology at [facility] than at other [facility]. Direct result comparisons should only be made within the same method. Performed By: #### T HYDS #### [facility] [address] [place] [address] CBC AND DIFFERENTIALon 09-02 % AUTOMATED IMMATURE GRAN 0.3 % Normal 0.0 - 0.9 [facility] Comment on above: Order Comment: PATIE NT FASTING Result Comment: [place] Granulocyte Count (IG) includes promyelocytes, myelocytes and metamyelocytes but does not include bands. Percent differential counts (%) should be interpreted in the context of the absolute cell counts (cells/L). Performed By: #### C BCDF #### [facility] [address] [place] [address] Basophils (Bld) [#/Vol] 0.07 10*3/uL Normal 0.00 - 0.10 [facility] Comment on above: Order Comment: PATIE NT FASTING Result Comment: Auto mated WBC differential has been confirmed by manual smear. Performed By: #### C BCDF #### [facility] [address] [place] [address] Basophils/100 WBC (Bld) 0.9 % Normal 0.0 - 2.0 [facility] Comment on above: Order Comment: PATIE NT FASTING Performed By: #### C BCDF #### [facility] [address] [place] [address] Eosinophils (Bld) [#/Vol] 0.21 10*3/uL Normal 0.00 - 0.70 [facility] Comment on above: Order Comment: PATIE NT FASTING Performed By: #### C BCDF #### [facility] [address] [place] [address] Eosinophils/100 WBC (Bld) 2.8 % Normal 0.0 - 6.0 [facility] Comment on above: Order Comment: PATIE NT FASTING Performed By: #### C BCDF #### [facility] [address] [place] [address] Lymphocytes (Bld) [#/Vol] 2.28 10*3/uL Normal 1.20 - 4.80 [facility] Comment on above: Order Comment: PATIE NT FASTING Performed By: #### C BCDF #### [facility] [address] [place] [address] Lymphocytes/100 WBC (Bld) 30.9 % Normal 13.0 - 44.0 [facility] Comment on above: Order Comment: PATIE NT FASTING Performed By: #### C BCDF #### [facility] [address] [place] [address] Monocytes (Bld) [#/Vol] 0.50 10*3/uL Normal 0.10 - 1.00 [facility] Comment on above: Order Comment: PATIE NT FASTING Performed By: #### C BCDF #### [facility] [address] [place] [address] Monocytes/100 WBC (Bld) 6.8 % Normal 2.0 - 10.0 [facility] Comment on above: Order Comment: PATIE NT FASTING Performed By: #### C BCDF #### [facility] [address] [place] [address] Neutrophils (Bld) [#/Vol] 4.29 10*3/uL Normal 1.20 - 7.70 [facility] Comment on above: Order Comment: PATIE NT FASTING Performed By: #### C BCDF #### [facility] [address] [place] [address] Neutrophils/100 WBC (Bld) 58.3 % Normal 40.0 - 80.0 [facility] Comment on above: Order Comment: PATIE NT FASTING Performed By: #### C BCDF #### [facility] [address] [place] [address] Erythrocyte distribution width (RBC) [Ratio] 14.6 % High 11.5 - 14.5 [facility] Comment on above: Order Comment: PATIE NT FASTING Performed By: #### C BCDF #### [facility] [address] [place] [address] Hematocrit (Bld) [Volume fraction] 43.1 % Normal 41.0 - 52.0 [facility] Comment on above: Order Comment: PATIE NT FASTING Performed By: #### C BCDF #### [facility] [address] [place] [address] Hemoglobin (Bld) [Mass/Vol] 13.3 g/dL Low 13.5 - 17.5 [facility] Comment on above: Order Comment: PATIE NT FASTING Performed By: #### C BCDF #### [facility] [address] [place] [address] MCHC (RBC) [Mass/Vol] 30.9 g/dL Low 32.0 - 36.0 [facility] Comment on above: Order Comment: PATIE NT FASTING Performed By: #### C BCDF #### [facility] [address] [place] [address] MCV (RBC) [Entitic vol] 92 fL Normal 80 - 100 [facility] Comment on above: Order Comment: PATIE NT FASTING Performed By: #### C BCDF #### [facility] [address] [place] [address] NUCLEATED RBC 0.0 /100 WBC Normal 0.0-0.0 [facility] Comment on above: Order Comment: PATIE NT FASTING Performed By: #### C BCDF #### [facility] [address] [place] [address] Platelets (Bld) [#/Vol] 267 10*3/uL Normal 150 - 450 [facility] Comment on above: Order Comment: PATIE NT FASTING Performed By: #### C BCDF #### [facility] [address] [place] [address] RBC 4.69 x10E12/L Normal 4.50 - 5.90 [facility] Comment on above: Order Comment: PATIE NT FASTING Performed By: #### C BCDF #### [facility] [address] [place] [address] WBC (Bld) [#/Vol] 7.4 10*3/uL Normal 4.4 - 11.3 [facility] Comment on above: Order Comment: PATIE NT FASTING Performed By: #### C BCDF #### [facility] [address] [place] [address] RED CELL MORPHOLOGYon [address] CH[address] Few Normal [facility] Comment on above: Order Comment: PATIE NT FASTING Performed By: #### M ORP2 #### [facility] [address] [place] [address] [facility] Comment on above: Order Comment: PATIE NT FASTING Performed By: #### M ORP2 #### [facility] [address] [place] [address] [facility] Comment on above: Order Comment: PATIE NT FASTING Performed By: #### M ORP2 #### [facility] [address] [place] [address] RBC FRAGMENTS Few Normal [facility] Comment on above: Order Comment: PATIE NT FASTING Performed By: #### M ORP2 #### [facility] [address] [place] [address] RBC morphology finding Nom (Bld) See Below Normal [facility] Comment on above: Order Comment: PATIE NT FASTING Performed By: #### M ORP2 #### [facility] [address] [place] [address] No Panel Informationon 01-19 76 1 [facility]iol[facility] [...] [place] Work Phone: [email or web address] ?RetrieveTestByDateTime?P [email or web address]&Date=1 09-13-2019&Time=15%3a11%3a 03%3a00&TestType=ECG&Site =1&OutputType=PDF&Ext=PDF [facility] [address] [place] Work Phone: Otheron 11-13-2019 [facility] Complete Blood Count + Diffe rentialon 11-06-2019 Basophils (Bld) [#/Vol] 0.06 {x10E9/L} See Below [facility] Work Phone: Comment on above: Reference Range: 0.0 0 - 0.10 Basophils/100 WBC (Bld) 0.8 % 0.0 - 2.0 [facility] Work Phone: Eosinophils (Bld) [#/Vol] 0.18 {x10E9/L} See Below [facility] Work Phone: Comment on above: Reference Range: 0.0 0 - 0.70 Eosinophils/100 WBC (Bld) 2.5 % 0.0 - 6.0 [facility] Work Phone: Erythrocyte distribution width (RBC) [Ratio] 13.7 % See Below [facility] Work Phone: Comment on above: Reference Range: 11. 5 - 14.5 Hematocrit (Bld) [Volume fraction] 45.5 % See Below [facility] Work Phone: Comment on above: Reference Range: 41. 0 - 52.0 Hemoglobin (Bld) [Mass/Vol] 14.0 g/dL See Below [facility] Work Phone: Comment on above: Reference Range: 13. 5 - 17.5 Lymphocytes (Bld) [#/Vol] 2.15 {x10E9/L} See Below [facility] Work Phone: Comment on above: Reference Range: 1.2 0 - 4.80 Lymphocytes/100 WBC (Bld) 29.9 % See Below [facility] Work Phone: Comment on above: Reference Range: 13. 0 - 44.0 MCHC (RBC) [Mass/Vol] 30.8 g/dL below low threshold See Below [facility] Work Phone: Comment on above: Reference Range: 32. 0 - 36.0 MCV (RBC) [Entitic vol] 94 fL 80 - 100 [facility] Work Phone: Monocytes (Bld) [#/Vol] 0.49 {x10E9/L} See Below [facility] Work Phone: Comment on above: Reference Range: 0.1 0 - 1.00 Monocytes/100 WBC (Bld) 6.8 % 2.0 - 10.0 [facility] Work Phone: Neutrophils (Bld) [#/Vol] 4.30 {x10E9/L} See Below [facility] Work Phone: Comment on above: Reference Range: 1.2 0 - 7.70 Neutrophils/100 WBC (Bld) 59.9 % See Below [facility] Work Phone: Comment on above: Reference Range: 40. 0 - 80.0 Platelets (Bld) [#/Vol] 270 {x10E9/L} 150 - 450 [facility] Work Phone: RBC (Bld) [#/Vol] 4.85 {x10E12/L} See Below [facility] Work Phone: Comment on above: Reference Range: 4.5 0 - 5.90 WBC (Bld) [#/Vol] 0.0 {/100_WBC} 0.0-0.0 [facility] Work Phone: WBC (Bld) [#/Vol] 7.2 {x10E9/L} 4.4 - 11.3 [facility] [place] [facility] Work Phone: Complete Blood Count + Differential 0.1 % 0.0 - 0.9 [facility] Work Phone: Comment on above: Immature Granulocyte Count (IG) includes promyelocytes, myelocytes and metamyelocytes but does not include bands. Percent differential counts (%) should be interpreted in the context of the absolute cell counts (cells/L). Lipid Panelon 11-06-2019 Cholesterol [Mass/Vol] 181 mg/dL 0 - 199 [facility] Work Phone: Comment [...] dosing. Cholesterol in HDL [Mass/Vol] 52.1 mg/dL [facility] Work Phone: Comment on above: . AGE VERY LOW LOW N ORMAL HIGH 0-19 Y < 35 < 40 40-45 ---- 20-24 Y ---- < 40 >45 ---- >24 Y ---- < 40 40-60 >60. Cholesterol in LDL [Mass/Vol] 97 mg/dL 0 - 99 [facility] Work Phone: Comment on above: . NEAR BORD AGE IZABELLA RABLE OPTIMAL HIGH HIGH VERY HIGH 0-19 Y 0 - 109 --- 110-129 >/= 130 ---- 20-24 Y 0 - 119 --- 120-159 >/= 160 ---- >24 Y 0 - 99 100-129 130-159 160-189 >/=190. Cholesterol.total/Chol esterol in HDL [Mass ratio] 3.5 {ratio} [facility] Work Phone: Comment on above: REF VALUESDESIRABLE < 3.4HIGH RISK > 5.0 Triglyceride [Mass/Vol] 158 mg/dL above high threshold 0 - 149 [facility] Work Phone: Comment on above: . [...] Lipid Panel 32 mg/dL 0 - 40 [facility] Work Phone: Metabolic Panelon 11-06-2019 ALP [Catalytic activity/Vol] 70 U/L 33 - 136 [facility] Work Phone: Anion gap [Moles/Vol] 13 mmol/L 10 - 20 [facility] Work Phone: Bilirubin [Mass/Vol] 0.6 mg/dL 0.0 - 1.2 [facility] [place] [facility] Work Phone: Calcium [Mass/Vol] 9.4 mg/dL 8.6 - 10.6 [facility] Work Phone: Chloride [Moles/Vol] 99 mmol/L 98 - 107 [facility] [place] [facility] Work Phone: CO2 [Moles/Vol] 30 mmol/L 21 - 32 [facility] Work Phone: Creatinine [Mass/Vol] 0.87 mg/dL See Below [facility] Work Phone: Comment on above: Reference Range: 0.5 0 - 1.30 Glucose [Mass/Vol] 89 mg/dL 74 - 99 [facility] Work Phone: Potassium [Moles/Vol] 4.3 mmol/L 3.5 - 5.3 [facility] Work Phone: Protein [Mass/Vol] 7.3 g/dL 6.4 - 8.2 [facility] Work Phone: Sodium [Moles/Vol] 138 mmol/L 136 - 145 [facility] Work Phone: Urea nitrogen [Mass/Vol] 14 mg/dL 6 - 23 [facility] Work Phone: Otheron 11-06-2019 Albumin BCP dye [Mass/Vol] 4.4 g/dL 3.4 - 5.0 [facility] Work Phone: ALT With P-5'-P [Catalytic activity/Vol] 11 U/L 10 - 52 [facility] Work Phone: Comment on above: Patients treated wit h Sulfasalazine may generate falsely decreased results for ALT. AST With P-5'-P [Catalytic activity/Vol] 17 U/L 9 - 39 [facility] Work Phone: >60 >60 [facility] Work Phone: Comment on above: CALCULATIONS OF LUZMARIA MATED GFR ARE PERFORMED USING THE MDRD STUDY EQUATION FOR THE IDMS-TRACEABLE CREATININE METHODS. CLIN CHEM 2007;53:766-72 Culture, urine Bacteria identified Cx Nom (U) Mixed Gram Pos & Gram Neg Org [facility] Work Phone: Bacteria identified Cx Nom (U) Klebsiella pneumoniae sp pneum [facility] Work Phone: Vital Signs Date Time Vital Sign Value Performing Clinician Facility 09-13-2023 11:48-0400 Body height 175.3 cm Rebecca Buck MD Work Phone: [facility] 09-13-2023 11:48-0400 Body mass index (BMI) [Ratio] 25.84 kg/m2 Rebecca Buck MD Work Phone: [facility] 09-13-2023 11:48-0400 Body weight 79.38 kg Rebecca Buck MD Work Phone: [facility] 08-13-2023 09:56-0400 Body height 175.3 cm Rebecca Buck MD Work Phone: [facility] 08-13-2023 09:56-0400 Body mass index (BMI) [Ratio] 25.84 kg/m2 Rebecca Buck MD Work Phone: [facility] 08-13-2023 09:56-0400 Body weight 79.38 kg Rebecca Buck MD Work Phone: [facility] 03-02-2022 18:49-0400 Body temperature 98.01 [degF] Lanette Munguia DO Work Phone: [facility] 03-02-2022 18:49-0400 Diastolic blood pressure 72 mm[Hg] Lanette Munguia DO Work Phone: [facility] 03-02-2022 18:49-0400 Heart rate 94 /min Lanette Munguia DO Work Phone: [employer] 03-02-2022 18:49-0400 Respiratory rate 18 /min Lanette Munguia DO Work Phone: [employer] 03-02-2022 18:49-0400 SaO2% (BldA) [Mass fraction] 98 % Lanette Munguia DO Work Phone: [employer] 03-02-2022 18:49-0400 Systolic blood pressure 104 mm[Hg] [facility] DO [facility] 03-02-2022 11:55-0400 Body height 175.3 cm Lanette Munguia DO Work Phone: [employer] 03-02-2022 11:55-0400 Body mass index (BMI) [Ratio] 25.84 kg/m2 Lanette Munguia DO Work Phone: [employer] 03-02-2022 11:55-0400 Body weight 79.38 kg Lanette Munguia DO [facility] 12-22-2021 02:08-0400 Diastolic blood pressure 67 mm[Hg] Sharon lOivia MD Work Phone: [employer] 12-22-2021 02:08-0400 Heart rate 77 /min Sharon Olivia MD Work Phone: [employer] 12-22-2021 02:08-0400 Respiratory rate 16 /min Sharon Olivia MD [facility] 12-22-2021 02:08-0400 SaO2% (BldA) [Mass fraction] 96 % Sharon Olivia MD Work Phone: [facility] 12-22-2021 02:08-0400 Systolic blood pressure 108 mm[Hg] Sharon Olivia MD Work Phone: [facility] 12-21-2021 23:52-0400 Body height 175.3 cm Sharon Olivia MD [facility] 12-21-2021 23:52-0400 Body mass index (BMI) [Ratio] 25.84 kg/m2 Sharon Olivia MD Work Phone: [facility] 12-21-2021 23:52-0400 Body temperature 97.9 [degF] Sharon Olivia MD [facility] 12-21-2021 23:52-0400 Body weight 79.38 kg Sharon Olivia MD Work Phone: [facility] 11-01-2021 08:41-0400 Diastolic blood pressure 77 mm[Hg] Dante Kim MD Work Phone: [facility] 11-01-2021 08:41-0400 Heart rate 75 /min Dante Kim MD Work Phone: [facility] 11-01-2021 08:41-0400 Respiratory rate 16 /min Dante Kim MD Work Phone: [facility] 11-01-2021 08:41-0400 SaO2% (BldA) [Mass fraction] 97 % Dante Kim MD Work Phone: [facility] 11-01-2021 08:41-0400 Systolic blood pressure 112 mm[Hg] Dante Kim MD Work Phone: [facility] 10-31-2021 19:13-0400 Body height 177.8 cm Dante Kim MD [facility] 10-31-2021 19:13-0400 Body mass index (BMI) [Ratio] 27.26 kg/m2 Dante Kim MD [facility] 10-31-2021 19:13-0400 Body temperature 98.49 [degF] Dante Kim MD Work Phone: [facility] 10-31-2021 19:13-0400 Body weight 86.18 kg Dante Kim MD Work Phone: [facility] 10-29-2021 07:38-0400 Body temperature 97.81 [degF] Lisa Miguel Angel DO Work Phone: [facility] 10-29-2021 07:38-0400 Diastolic blood pressure 79 mm[Hg] Lisa Miguel Angel DO Work Phone: [facility] 10-29-2021 07:38-0400 Heart rate 80 /min Lisa Miguel Angel DO Work Phone: [facility] 10-29-2021 07:38-0400 Respiratory rate 18 /min Lisa Miguel Angel DO Work Phone: [facility] 10-29-2021 07:38-0400 SaO2% (BldA) [Mass fraction] 96 % Lisa Miguel Angel DO Work Phone: [facility] 10-29-2021 07:38-0400 Systolic blood pressure 123 mm[Hg] Lisa Miguel Angel DO Work Phone: [facility] 10-25-2021 13:55-0400 Body height 170.2 cm Lisa Miguel Angel DO Work Phone: [facility] 10-21-2021 00:57-0400 Body mass index (BMI) [Ratio] 37.58 kg/m2 Lisa Miguel Angel DO Work Phone: [facility] 10-21-2021 00:57-0400 Body weight 108.86 kg Lisa Miguel Angel DO Work Phone: [facility] 07-13-2020 13:21-0500 BMI (Body Mass Index) 40.47 kg/m2 Monika Staley [facility] Work Phone: 07-13-2020 13:21-0500 Body Temperature 98 [degF] Monika Staley [facility] Work Phone: 07-13-2020 13:21-0500 Body weight 124.31 kg Monika Staley [facility] Work Phone: 07-13-2020 13:21-0500 BP Diastolic 78 [...] BSA (Body Surface Area) 2.36 m2 [facility] Work Phone: 04-13-2020 15:33-0500 Height 175.26 cm [facility] R[facility] Work Phone: 04-13-2020 15:33-0500 Pulse (Heart Rate) 98 /min [facility] Work Phone: 04-13-2020 15:33-0500 Pulse Oximetry 98 % [facility] Work Phone: Comment on above: Source: 04-13-2020 15:33-0500 0 1 [facility] Ritter [facility] Work Phone: Comment on above: Pain Scale 01-20-2020 16:39-0400 Body height 175.26 cm Monika Staley MD [facility] [address] [place] Work Phone: 01-20-2020 16:39-0400 Body mass index (BMI) [Ratio] 39.28 kg/m2 Monika Staley MD QF-Pwzeqvczhd-Iem [facility] [address] [place] Work Phone: 01-20-2020 16:39-0400 Body surface area Derived from formula 2.33 m2 Monika Staley MD IO-Tghxudasib-Lna [facility] [address] [place] Work Phone: 01-20-2020 16:39-0400 Body weight 120.66 kg Monika Staley MD [facility] [address] [place] Work Phone: 01-20-2020 16:39-0400 Diastolic blood pressure 84 mm[Hg] Monika Staley MD LJ-Xjlqmwdabt-Mkn [facility] [address] [place] Work Phone: Comment on above: Location: [facility]; Position: Sitting 01-20-2020 16:39-0400 Heart rate 80 /min Monika Staley MD [facility] [address] [place] Work Phone: 01-20-2020 16:39-0400 SaO2% (BldA) [Mass fraction] 100 % Monika Staley MD QL-Axtwgbydoy-Baa [facility] [address] [place] Work Phone: Comment on above: Source: 01-20-2020 16:39-0400 Systolic blood pressure 144 mm[Hg] Monika Staley MD JU-Sccxmekvxv-Hfn [facility] [address] [place] Work Phone: Comment on above: Location: [facility]; Position: Sitting 11-06-2019 15:29-0400 BMI (Body Mass Index) 38.31 kg/m2 [facility] Work Phone: 11-06-2019 15:29-0400 Body Temperature 97.6 [...] Care Provider Facility Start: 03-16-2025 ambulatory Carlos Lópezsaros OLS Faci lity:[facility] Start: 03-13-2025 ambulatory Carlos Katsaros OLS Faci lity:[facility] Start: 03-12-2025 ambulatory Mahaveer Mukka flash OLS Facility:[facility] Start: 03-11-2025 ambulatory Carlos Katsaros OLS Faci lity:[facility] Start: 03-09-2025 ambulatory Mahaveer Mukka flash OLS Facility:[facility] Start: 03-05-2025 ambulatory Mahaveer Mukka flash OLS Facility:[facility] Start: 03-02-2025 ambulatory Peter Katsaros OLS Faci lity:[facility] Start: 02-26-2025 ambulatory Mahaveer Mukka flash OLS Facility:[facility] Start: 02-23-2025 ambulatory Mahaveer Mukka flash OLS Facility:[facility] Start: 02-19-2025 ambulatory Mahaveer Mukka flash OLS Facility:[facility] Start: 02-16-2025 End: 02-16-2025 ambulatory Karon Delacruzlla OLS Facility:[facility] Start: 02-12-2025 [facility] Start: 02-12-2025 End: 02-12-2025 ambulatory Karon Delacruzlla OLS Facility:[facility] Start: 02-09-2025 Registered Referred Carlos Cavazos - [facility] Start: 02-09-2025 ambulatory Carlos Cavazos OLS Faci lity:[facility] Start: 02-05-2025 [facility] Start: 02-05-2025 End: 02-05-2025 ambulatory Karon Delacruzlla OLS Facility:[facility] Start: 02-02-2025 [facility] Start: 02-02-2025 End: 02-02-2025 ambulatory Karon Delacruzlla OLS Facility:[facility] Start: 01-29-2025 [facility] Start: 01-29-2025 End: 01-29-2025 ambulatory Karon Delacruzlla OLS Facility:[facility] Start: 01-26-2025 [facility] Start: 01-26-2025 End: 01-26-2025 ambulatory Karon Delacurzlla OLS Facility:[facility] Start: 01-22-2025 [facility] Start: 01-22-2025 End: 01-22-2025 [facility]ulatory [facility] Start: 01-19-2025 Registered Referred Carlos Cavazos - [facility] Start: 01-19-2025 End: 01-19-2025 ambulatory Carlos Cavazos OLS Facility:[facility] Start: 01-15-2025 [facility] Start: 01-15-2025 End: 01-15-2025 ambulatory Karon Farmera OLS Facility:[facility] Start: 01-12-2025 Registered Referred Karon casillas MD -[facility] Start: 01-12-2025 End: 01-12-2025 ambulatory Karon Farmera OLS Facility:[facility] Start: 01-08-2025 Registered Referred Karon casillas MD -[facility] Start: 01-08-2025 End: 01-08-2025 ambulatory Karon Farmera OLS Facility:[facility] Start: 01-06-2025 Registered Referred Karon casillas MD -[facility] Start: 01-06-2025 End: 01-06-2025 ambulatory Karon Delacruzmarlenea OLS Facility:[facility] Start: 01-01-2025 End: 01-01-[address] Monika Staley MD Work Phone: -[facility] Start: 01-01-2025 End: 01-01-2025 Departed Referred Karon Corrales MD -[facility] Start: 01-01-2025 Registered Referred Karon casillas MD -[facility] Start: 01-01-2025 End: 01-01-2025 ambulatory Carlavilmanoe Delacruzmarlenevanessa OLS Facility:[facility] Start: 12-29-2024 Registered Referred Carlos Cavazos - [facility] Start: 12-29-2024 End: 12-29-2024 ambulatory Carlos Maribelkameron OLS Facility:[facility] Start: 12-26-2024 End: 12-26-[address] Monika Staley MD Work Phone: -[facility] Start: 12-26-2024 End: 12-26-2024 Departed Referred Karon Corrales MD -[facility] Start: 12-26-2024 Registered Referred Karon casillas MD -[facility] Start: 12-26-2024 End: 12-26-2024 ambulatory Karon Delacruzlla OLS Facility:[facility] Start: 12-25-2024 [facility] Start: 12-24-2024 End: 12-25-2024 ambulatory Mahavenoe Hernandezkkminglla OLS Facility:[facility] Start: 12-24-2024 Registered Referred Carlos Cavazos - [facility] Start: 12-22-2024 ambulatory Karon Hernandezkka flash OLS Facility:[facility] Start: 12-22-2024 Registered Referred Karon casillas MD -[facility] Start: 12-18-2024 [facility] Start: 12-18-2024 End: 12-18-2024 ambulatory [facility] Start: 12-15-2024 ambulatory [facility] Morrisona flash OLS Facility:[facility] Start: 12-15-2024 [facility] Start: 12-11-2024 Registered Referred Carlos Cavazos - [facility] Start: 12-11-2024 End: 12-11-2024 ambulatory Carlos Maribelsaros OLS Facility:[facility] Start: 12-08-2024 [facility] Start: 12-08-2024 End: 12-08-2024 ambulatory Karon Delacruzlla OLS Facility:[facility] Start: 12-04-2024 [facility] Start: 12-04-2024 End: 12-04-2024 ambulatory Carlaaveer Mukkamalla OLS Facility:[facility] Start: 12-02-2024 ambulatory [facility] Start: 12-02-2024 [facility] Start: 12-01-2024 ambulatory Carlos NOVAK Faci lity:[facility] Start: 12-01-2024 Registered Referred Carlos Cavazos - [facility] Start: 11-28-2024 Registered Referred Carlos Cavazos - [facility] Start: 11-28-2024 End: 11-28-2024 ambulatory Carlos NOVAK Facility:[facility] Start: 11-27-2024 Registered Referred Karon casillas MD -[facility] Start: 11-27-2024 End: 11-27-2024 ambulatory Karon NOVAK Facility:[facility] Start: 11-24-2024 ambulatory Karon NOVAK Facility:[facility] Start: 11-24-2024 [facility] Start: 11-20-2024 Registered Referred Karon casillas MD -[facility] Start: 11-20-2024 End: 11-20-2024 ambulatory Karon NOVAK Facility:[facility] Start: 11-17-2024 ambulatory Monika Carlos ty:[facility] Start: 11-17-2024 Registered Referred Karon casillas MD -[facility] Start: 11-13-2024 ambulatory Monika Carlos ty:[facility] Start: 11-13-2024 Registered Referred Karon casillas MD -[facility] Start: 11-10-2024 ambulatory Karon NOVAK Facility:[facility] Start: 11-10-2024 [facility] Start: 11-06-2024 Registered Referred Karon casillas MD -[facility] Start: 11-06-2024 End: 11-06-2024 ambulatory Karon NOVAK Facility:[facility] Start: 11-03-2024 End: 11-03-[address] Monika Staley MD Work Phone: -[facility] Start: 11-03-2024 End: 11-03-2024 Departed Referred Carlos Cavazos -[facility] Start: 11-03-2024 Registered Referred Carlos Cavazos - [facility] Start: 11-03-2024 End: 11-03-2024 ambulatory Carlos NOVAK Facility:[facility] Start: 10-30-2024 End: 10-30-[address] Monika Staley MD Work Phone: -[facility] Start: 10-30-2024 End: 10-30-2024 Departed Referred Karon Corrales MD -[facility] Start: 10-30-2024 Registered Referred Karon casillas MD -[facility] Start: 10-30-2024 End: 10-30-2024 ambulatory Monika Staley Facility:[facility] Start: 10-27-2024 Registered Referred Karon casillas MD -[facility] Start: 10-27-2024 End: 10-27-2024 ambulatory Karon NOVAK Facility:[facility] Start: 10-23-2024 Registered Referred Karon casillas MD -[facility] Start: 10-23-2024 End: 10-23-2024 ambulatory Monika Staley Facility:[facility] Start: 10-20-2024 End: 10-20-[address] Monika Staley MD Work Phone: -[facility] Start: 10-20-2024 End: 10-20-2024 Departed Referred Karon Corrales MD -[facility] Start: 10-20-2024 Registered Referred Karon casillas MD -[facility] [facility] Start: 10-20-2024 End: 10-20-2024 ambulatory Karon NOVAK Facility:[facility] Start: 10-16-2024 ambulatory Monika Horner Luís Facili ty:[facility] Start: 10-16-2024 [facility] Start: 10-13-2024 ambulatory Carlos NOVAK Faci lity:[facility] Start: 10-13-2024 Registered Referred Carlos Cavazos - [facility] Start: 10-09-2024 ambulatory Monika Horner Luís Facili ty:[facility] Start: 10-09-2024 Registered Referred Karon casillas MD -[facility] Start: 10-06-2024 ambulatory Carlos NOVAK Faci lity:[facility] Start: 10-06-2024 Registered Referred Carlos Cavazos - [facility] Start: 10-02-2024 ambulatory Monika Horner Luís Facili ty:[facility] Start: 10-02-2024 Registered Referred Karon casillas MD -[facility] Start: 09-30-2024 End: 09-30-[address] Monika Staley MD Work Phone: [facility] Work Phone: Start: 09-30-2024 End: 09-30-2024 Departed Referred Karon Corrales MD -[facility] Start: 09-30-2024 Registered [facility] Start: 09-30-2024 End: 09-30-2024 ambulatory Karon NOVAK Facility:[facility] Start: 09-25-2024 ambulatory Karon NOVAK Facility:[facility] Start: 09-25-2024 [facility] Start: 09-22-2024 End: 09-22-[address] Monika Staley MD Work Phone: -[facility] Start: 09-22-2024 End: 09-22-2024 Departed Referred Karon Corrales MD -[facility] Start: 09-22-2024 Registered Referred Karon casillas MD -[facility] Start: 09-22-2024 End: 09-22-2024 ambulatory Karon NOVAK Facility:[facility] Start: 09-18-2024 End: 09-18-[address] Monika Staley MD Work Phone: -[facility] Start: 09-18-2024 End: 09-18-2024 Departed Referred Karon Corrales MD -[facility] Start: 09-18-2024 Registered Referred Karon casillas MD -[facility] Start: 09-18-2024 End: 09-18-2024 ambulatory Karon NOVAK Facility:[facility] Start: 09-15-2024 End: 09-15-[address] Monika Staley MD Work Phone: [facility] Work Phone: Start: 09-15-2024 End: 09-15-2024 Departed Referred Carlos Cavazos -[facility] Start: 09-15-2024 Registered Referred Carlos Cavazos - [facility] Start: 09-15-2024 End: 09-15-2024 ambulatory Carlos NOVAK Facility:[facility] Start: 09-11-2024 ambulatory Karon NOVAK Facility:[facility] Start: 09-11-2024 Registered Referred Karon casillas MD -[facility] Start: 09-08-2024 End: 09-08-[address] Monika Staley MD Work Phone: [facility] Work Phone: Start: 09-08-2024 End: 09-08-2024 Departed Referred Karon Corrales MD -[facility] Start: 09-08-2024 Registered Referred Karon casillas MD -[facility] Start: 09-08-2024 End: 09-08-2024 ambulatory Karon NOVAK Facility:[facility] Start: 09-04-2024 End: 09-04-2024 Departed Referred Carlos Cavazos -[facility] Start: 09-04-2024 Registered Referred Carlos Cavazos - [facility] Start: 09-04-2024 End: 09-04-2024 ambulatory Carlos Cavazos OLS Facility:[facility] Start: 09-01-2024 End: 09-01-[address] Monika Staley MD Work Phone: [facility] Work Phone: Start: 09-01-2024 End: 09-01-2024 Departed Referred Carlos Cavazos -[facility] Start: 09-01-2024 Registered Referred Carlos Maribelkameron - [facility] Start: 09-01-2024 End: 09-01-2024 ambulatory Carlos NOVAK Facility:[facility] Start: 08-28-2024 End: 08-28-[address] Monika Staley MD Work Phone: [facility] Work Phone: Start: 08-28-2024 End: 08-28-2024 Departed Referred Carlos Cavazos -[facility] Start: 08-28-2024 Registered Referred Carlos Abdelrahmanros - [facility] Start: 08-28-2024 End: 08-28-2024 ambulatory Carlos NOVAK Facility:[facility] Start: 08-25-2024 End: 08-25-[address] Monika Staley MD Work Phone: [facility] Work Phone: Start: 08-25-2024 End: 08-25-2024 Departed Referred Karon Corrales MD -[facility] Start: 08-25-2024 Registered Referred Karon casillas MD -[facility] [facility] Start: 08-25-2024 End: 08-25-2024 ambulatory Carlaamber Morrisonmingshellie OLS Facility:[facility] Start: 08-21-2024 End: 08-21-[address] Monika Staley MD Work Phone: [facility] Work Phone: Start: 08-21-2024 End: 08-21-2024 Departed Referred Karon Corrales MD -[facility] Start: 08-21-2024 Registered Referred Karon casillas MD -[facility] Start: 08-21-2024 End: 08-21-2024 ambulatory Carlaamber Davidinga OLS Facility:[facility] Start: 08-18-2024 End: 08-18-[address] Monika Staley MD Work Phone: [facility] Work Phone: Start: 08-18-2024 End: 08-18-2024 Departed Referred Karon Corrales MD -[facility] Start: 08-18-2024 Registered Referred Karon casillas MD -[facility] Start: 08-18-2024 End: 08-18-2024 ambulatory Carlavilmanoe Hernandezelismingshellie OLS Facility:[facility] Start: 08-14-2024 End: 08-14-[address] Monika Staley MD Work Phone: [facility] Work Phone: Start: 08-14-2024 End: 08-14-2024 Departed Referred Karon Corrales MD -[facility] Start: 08-14-2024 Registered Referred Karon casillas MD -[facility] Start: 08-14-2024 End: 08-14-2024 ambulatory Carlaamber Corrales OLS Facility:[facility] Start: 08-11-2024 End: 08-11-2024 Departed Referred Karon Corrales MD -[facility] Start: 08-11-2024 Registered Referred Karon casillas MD -[facility] Start: 08-11-2024 End: 08-11-2024 ambulatory Karon NOVAK Facility:[facility] Start: 08-07-2024 End: 08-07-2024 Departed Referred Carlos Maribelsaros -[facility] Start: 08-07-2024 Registered Referred Carlos Maribelsaros - [facility] Start: 08-07-2024 End: 08-07-2024 ambulatory Carlos NOVAK Facility:[facility] Start: 08-04-2024 End: 08-04-[address] Monika Staley MD Work Phone: [facility] Work Phone: Start: 08-04-2024 End: 08-04-2024 Departed Referred Carlos Maribelsaros -[facility] Start: 08-04-2024 Registered Referred Carlos Maribelsaros - [facility] Start: 08-04-2024 End: 08-04-2024 ambulatory Carlos NOVAK Facility:[facility] Start: 07-31-2024 End: 07-31-[address] Monika Staley MD Work Phone: [facility] Work Phone: Start: 07-31-2024 End: 07-31-2024 Departed Referred Karon Corrales MD -[facility] Start: 07-31-2024 Registered Referred Karon casillas MD -[facility] Start: 07-31-2024 End: 07-31-2024 ambulatory Karon NOVAK Facility:[facility] Start: 07-28-2024 End: 07-28-[address] Monika Staley MD Work Phone: [facility] Work Phone: Start: 07-28-2024 End: 07-28-2024 Departed Referred Karon Corrales MD -[facility] Start: 07-28-2024 Registered Referred Karon casillas MD -[facility] Start: 07-28-2024 End: 07-28-2024 ambulatory Karon NOVAK Facility:[facility] Start: 07-25-2024 End: 07-25-[address] Monika Staley MD Work Phone: [facility] Work Phone: Start: 07-25-2024 End: 07-25-2024 Departed Referred Carlos Cavazos -[facility] Start: 07-25-2024 Registered Referred Carlos Reeder [facility] Start: 07-24-2024 End: 07-25-[address] Monika Staley MD Work Phone: [facility] Work Phone: Start: 07-24-2024 End: 07-24-2024 Departed Referred Karon Corrales MD -[facility] Start: 07-24-2024 Registered Referred Karon casillas MD -[facility] Start: 07-24-2024 End: 07-24-2024 ambulatory Karon NOVAK Facility:[facility] Start: 07-21-2024 End: 07-21-[address] Monika Staley MD Work Phone: [facility] Work Phone: Start: 07-21-2024 End: 07-21-2024 Departed Referred Karon Corrales MD -[facility] Start: 07-21-2024 [facility] Start: 07-21-2024 End: 07-21-2024 ambulatory Karon NOVAK Facility:[facility] Start: 07-17-2024 End: 07-17-[address] Monika Staley MD Work Phone: [facility] Work Phone: Start: 07-17-2024 End: 07-17-2024 Departed Referred Karon Corrales MD -[facility] Start: 07-17-2024 Registered Referred Karon casillas MD -[facility] Start: 07-17-2024 End: 07-17-2024 ambulatory Karon NOVAK Facility:[facility] Start: 07-14-2024 End: 07-14-[address] Monika Staley MD Work Phone: [facility] Work Phone: Start: 07-14-2024 End: 07-14-2024 Departed Referred Carlos Cavazos -[facility] Start: 07-14-2024 Registered Referred Carlos Lópezsaviri - [facility] Start: 07-14-2024 End: 07-14-2024 ambulatory Carlos NOVAK Facility:[facility] Start: 07-11-2024 End: 07-11-[address] Monika Staley MD Work Phone: [facility] Work Phone: Start: 07-11-2024 End: 07-11-2024 Departed Referred Carlos Cavazos -[facility] Start: 07-11-2024 Registered Referred Carlos Lópezsaviri - [facility] Start: 07-11-2024 End: 07-11-2024 ambulatory Carlos NOVAK Facility:[facility] Start: 07-07-2024 End: 07-07-[address] Monika Staley MD Work Phone: [facility] Work Phone: Start: 07-07-2024 End: 07-07-2024 Departed Referred Karon Corrales MD -[facility] Start: 07-07-2024 Registered Referred [facility] Start: 07-07-2024 End: 07-07-2024 ambulatory Karon NOVAK Facility:[facility] Start: 07-03-2024 End: 07-03-[address] Monika Staley MD Work Phone: [facility] Work Phone: Start: 07-03-2024 End: 07-03-2024 Departed Referred Kvng Crisostomo MD -[facility] Start: 07-03-2024 Registered Referred Kvng Crisostomo MD -[facility] Start: 07-03-2024 End: 07-03-2024 ambulatory Kvng NOVAK Facility:[facility] Start: 06-30-2024 End: 06-30-[address] Monika Staley MD Work Phone: [facility] Work Phone: Start: 06-30-2024 End: 06-30-2024 Departed Referred Kvng Crisostomo MD -[facility] Start: 06-30-2024 Registered Referred Kvng Crisostomo MD -[facility] Start: 06-30-2024 End: 06-30-2024 ambulatory Kvng NOVAK Facility:[facility] Start: 06-26-2024 ambulatory Kvng NOVAK Fac ility:[facility] Start: 06-26-2024 Registered Referred Kvng Crisostomo MD -[facility] Start: 06-23-2024 End: 06-23-[address] Monika Staley MD Work Phone: [facility] Work Phone: Start: 06-23-2024 End: 06-23-2024 Departed Referred Carlos [facility] [employer] Start: 06-23-2024 Registered Referred Carlos Reeder [facility] Start: 06-23-2024 End: 06-23-2024 ambulatory Carlos NOVAK Facility:[facility] Start: 06-19-2024 End: 06-19-[address] Monika Staley MD Work Phone: [facility] Work Phone: Start: 06-19-2024 End: 06-19-2024 Departed Referred Kvng Crisostomo MD -[facility] Start: 06-19-2024 Registered Referred Kvng Crisostomo MD -[facility] Start: 06-19-2024 End: 06-19-2024 ambulatory Monika Staley Facility:[facility] Start: 06-16-2024 End: 06-16-[address] Monika Staley MD Work Phone: [facility] Work Phone: Start: 06-16-2024 End: 06-16-2024 Departed Referred Kvng Crisostomo MD -[facility] Start: 06-16-2024 Registered Referred Kvng Crisostomo MD -[facility] Start: 06-16-2024 End: 06-16-2024 ambulatory Monika Staley Facility:[facility] Start: 06-12-2024 End: 06-12-[address] Monika Staley MD Work Phone: [facility] Work Phone: Start: 06-12-2024 End: 06-12-2024 Departed Referred Kvng Crisostomo MD -[facility] Start: 06-12-2024 Registered Referred Kvng Crisostomo MD -[facility] Start: 06-12-2024 End: 06-12-2024 ambulatory Kvng NOVAK Facility:[facility] Start: 06-09-2024 End: 06-09-[address] Monika Staley MD Work Phone: [facility] Work Phone: Start: 06-09-2024 End: 06-09-2024 Departed Referred Carlos Chavez [employer] Start: 06-09-2024 Registered Referred Carlos Chavez [employer] Start: 06-09-2024 End: 06-09-2024 ambulatory Monika Staley Facility:[facility] Start: 06-05-2024 End: 06-05-[address] Monika Staley MD Work Phone: [facility] Work Phone: Start: 06-05-2024 End: 06-05-2024 Departed Referred Kvng Mcclain [employer] Start: 06-05-2024 End: 06-05-2024 ambulatory Kvng NOVAK Facility:[facility] Start: 06-02-2024 End: 06-02-[address] Monika Staley MD Work Phone: [facility] Work Phone: Start: 06-02-2024 End: 06-02-2024 Departed Referred Kvng Mcclain [facility] [employer] Start: 06-02-2024 Registered Referred Kvng Crisostomo MD -[facility] Start: 06-02-2024 End: 06-02-2024 ambulatory Kvng NOVAK Facility:[facility] Start: 05-29-2024 End: 05-29-[address] Monika Staley MD Work Phone: [facility] Work Phone: Start: 05-29-2024 End: 05-29-2024 Departed Referred Kvng Mcclain [facility] [employer] Start: 05-29-2024 Registered Referred Kvng Mcclain [employer] Start: 05-29-2024 End: 05-29-2024 ambulatory Kvng NOVAK Facility:[facility] Start: 05-26-2024 End: 05-26-[address] Monika Staley MD Work Phone: [facility] Work Phone: Start: 05-26-2024 End: 05-26-2024 [facility] Start: 05-26-2024 Registered Referred Carlos [facility]eder [facility] Start: 05-26-2024 End: 05-26-2024 ambulatory Carlos NOVAK Facility:[facility] Start: 05-22-2024 ambulatory Kvng NOVAK Fac ility:[facility] Start: 05-22-2024 Registered [facility] Start: 05-20-2024 End: 05-20-2024 Departed Ref[facility] [employer] Start: 05-19-2024 End: 05-20-2024 ambulatory Kvng NOVAK Facility:[facility] Start: 05-19-2024 Registered [facility] [employer] Start: 05-15-2024 End: 05-15-2024 Departed Referred [facility] [employer] Start: 05-15-2024 End: 05-15-2024 ambulatory Kvng NOVAK Facility:[facility] Start: 05-12-2024 End: 05-12-2024 Departed Referred Carlos Morenouary [employer] Start: 05-12-2024 End: 05-12-2024 ambulatory Carlos NOVAK Facility:[facility] Start: 05-09-2024 End: 05-09-2024 [facility]ed [facility] Start: 05-09-2024 End: 05-09-2024 ambulatory Kvng NOVAK Facility:[facility] Start: 05-08-2024 End: 05-08-2024 Departed [facility] [employer] Start: 05-08-2024 End: 05-08-2024 ambulatory Kvng Crisostomoluis enrique NOVAK Facility:[facility] Start: 05-05-2024 End: 05-05-2024 Departed Referred Kvng Crisostomo MD -[facility] [employer] [facility] Start: 05-05-2024 End: 05-05-2024 ambulatory Vicenterocio Jonesluis enrique NOVAK Facility:[facility] Start: 05-01-2024 End: 05-01-2024 Departed Referred Kvng Crisostomo MD -[facility] [employer] [facility] Start: 05-01-2024 End: 05-01-2024 ambulatory Vicenterocio Andressa NOVAK Facility:[facility] Start: 04-28-2024 End: 04-28-2024 Departed Referred Carlos Cavazos -[facility] Start: 04-28-2024 End: 04-28-2024 ambulatory Carlos NOVAK Facility:[facility] Start: 04-24-2024 End: 04-24-2024 Departed Referred Kvng Crisostomo MD -[facility] Start: 04-24-2024 End: 04-24-2024 ambulatory Vicenterocio Andressa NOVAK Facility:[facility] Start: 04-21-2024 End: 04-21-2024 Departed Referred Carlos Cavazos -[facility] Start: 04-21-2024 End: 04-21-2024 ambulatory Carlos NOVAK Facility:[facility] Start: 04-17-2024 ambulatory Vicenterocio Jonesur OLS Fac ility:[facility] Start: 04-17-2024 Registered [facility] [facility] Start: 04-14-2024 ambulatory Vicenterocio Jonesluis enrique NOVAK Fac ility:[facility] Start: 04-14-2024 Registered Referred Kvng Crisostomo MD -[facility] Start: 04-10-2024 End: 04-10-2024 Departed Referred [facility] [facility] Start: 04-10-2024 End: 04-10-2024 ambulatory Vicentesigifredokarolmilton Andressa NOVAK Facility:[facility] Start: 04-07-2024 End: 04-07-2024 Departed Referred Carlos Cavazos [facility] [employer] Start: 04-07-2024 End: 04-07-2024 ambulatory Carlos NOVAK Facility:[facility] Start: 04-04-2024 ambulatory Kvng NOVAK Fac ility:[facility] Start: 04-04-2024 Registered Referred Kvng Crisostomo MD -[facility] Start: 03-31-2024 End: 03-31-2024 Departed Referred Carlos Cavazos -[facility] [employer] Start: 03-31-2024 End: 03-31-2024 ambulatory Carlos NOVAK Facility:[facility] Start: 03-27-2024 End: 03-27-2024 Departed Ref[facility] Start: 03-27-2024 End: 03-27-2024 ambulatory [facility] Facility:[facility] Start: 03-24-2024 End: 03-24-2024 Departed Referred Kvng Crisostomo MD [facility] [employer] Start: 03-24-2024 End: 03-24-2024 ambulatory Kvng NOVAK Facility:[facility] Start: 03-20-2024 End: 03-20-2024 Departed Referred [facility] Start: 03-20-2024 End: 03-20-2024 ambulatory [facility] Facility:[facility] Start: 03-19-2024 End: 03-19-2024 Departed Referred Kvng Crisostomo MD [facility] [employer] Start: 03-19-2024 End: 03-19-2024 ambulatory Kvng NOVAK Facility:[facility] Start: 03-18-2024 End: 03-18-2024 Departed Referred [facility] Start: 03-17-2024 End: 03-17-2024 Departed Referred [facility] Start: 03-14-2024 End: 03-14-2024 Departed Referred Carlos Cavazos [facility] [employer] Start: 03-13-2024 End: 03-13-2024 Departed Referred [facility] Start: 09-13-2023 End: 09-13-2023 ambulatory [facility] Start: 09-13-2023 End: 09-13-2023 Office outpatient visit 25 minutes Rebecca Buck MD Work Phone: [facility] Comment on above: Left flank pain (Christina magui Dx); BPH with urinary obstruction; History of kidney stones Start: 09-06-2023 End: 09-07-2023 ambulatory [facility] Start: 09-06-2023 End: 09-06-2023 Subsequent hospital visit by physician Rebecca Buck MD Work Phone: [facility] Imaging Comment on above: Left flank pain; Calculus of ureter Start: 08-31-2023 [facility] Start: 08-31-2023 [facility] Start: 08-21-2023 Telephone encounter Rebecca Buck MD Work Phone: [facility] Clinical Communication Comment on above: CT appt Boaz advice Start: 08-21-2023 [facility] Start: 08-13-2023 End: 08-13-2023 ambulatory [facility] Start: 08-13-2023 End: 08-13-2023 Office outpatient new 45 minutes Rebecca Buck MD Work Phone: [facility] Comment on above: Left flank pain (Christina magiu Dx); Calculus of ureter; Disease of prostate; BPH with urinary obstruction Start: 08-03-2023 End: 08-03-2023 ambulatory [facility] Work Phone: Start: 08-03-2023 End: 08-03-2023 Departed Referred [facility] [employer] Start: 07-20-2023 End: 07-20-2023 ambulatory [facility] Work Phone: Start: 07-20-2023 End: 07-20-2023 Departed Referred [facility] [employer] Start: 07-20-2023 Registered Referred [facility] [employer] Start: 07-18-2023 End: 07-18-2023 ambulatory [facility] Work Phone: Start: 07-18-2023 End: 07-18-2023 [facility] Start: 07-18-2023 [facility] Start: 07-16-2023 End: 07-16-2023 ambulatory [facility] Work Phone: Start: 07-16-2023 End: 07-16-2023 [facility] Start: 07-16-2023 [facility] Start: 07-13-2023 End: 07-13-2023 ambulatory [facility] Work Phone: Start: 07-13-2023 End: 07-13-2023 [facility] Start[facility] 07-13-2023 [facility] Start: 07-12-2023 End: 07-12-2023 ambulatory [facility] Work Phone: Start: 07-12-2023 End: 07-12-2023 [facility] Start: 07-12-2023 Registered Ref[facility] [employer] Start: 07-05-2023 End: 07-05-2023 ambulatory [facility] Work Phone: Start: 07-05-2023 End: 07-05-2023 [facility] Start: 07-05-2023 [facility] [facility] Start: 07-02-2023 [facility] Start: 06-28-2023 End: 06-28-2023 ambulatory [facility] Work Phone: Start: 06-28-2023 End: 06-28-2023 [facility] Start: 06-28-2023 [facility] Start: 06-25-2023 Telephone encounter Rebecca Buck MD Work Phone: [facility] Start: 06-25-2023 End: 06-25-2023 ambulatory [facility] Work Phone: Start: 06-25-2023 End: 06-25-2023 [facility] Start: 06-25-2023 [facility] Start: 06-21-2023 End: 06-21-2023 ambulatory [facility] Work Phone: Start: 06-21-2023 End: 06-21-2023 [facility] Start: 06-21-2023 [facility] Start: 06-13-2023 End: 06-13-2023 ambulatory [facility] Work Phone: Start: 06-13-2023 End: 06-13-2023 [facility] Start: 06-06-2023 End: 06-06-2023 ambulatory [facility] Work Phone: Start: 06-06-2023 End: 06-06-2023 [facility] Start: 06-06-2023 [facility] Start: 05-23-2023 End: 05-23-2023 ambulatory [facility] Work Phone: Start: 05-23-2023 End: 05-23-2023 [facility] Start: 05-09-2023 End: 05-09-2023 [facility] Start: 05-09-2023 [facility] Start: 04-23-2023 End: 04-23-2023 [facility] Start: 04-09-2023 End: 04-09-2023 ambulatory [facility] Work Phone: Start: 04-09-2023 End: 04-09-2023 [facility] Start: 04-09-2023 [facility] Start: 04-02-2023 End: 04-02-2023 ambulatory [facility] Work Phone: Start: 04-02-2023 End: 04-02-2023 [facility] Start: 04-02-2023 [facility] Start: 03-26-2023 End: 03-26-2023 ambulatory [facility] Work Phone: Start: 03-26-2023 End: 03-26-2023 [facility] Start: 03-26-2023 [facility] Start: 03-22-2023 End: 03-22-2023 ambulatory [facility] Work Phone: Start: 03-22-2023 End: 03-22-2023 [facility] Start: 03-22-2023 [facility] Start: 03-08-2023 End: 03-08-2023 ambulatory [facility] Work Phone: Start: 03-08-2023 End: 03-08-2023 [facility] Start: 02-22-2023 End: 02-22-2023 ambulatory [facility] Work Phone: Start: 02-22-2023 End: 02-22-2023 Departed Referred [facility] [employer] Start: 02-22-2023 Registered Referred [facility] Start: 02-15-2023 End: 02-15-2023 ambulatory [facility] Work Phone: Start: 02-15-2023 End: 02-15-2023 Departed Referred [facility] [employer] Start: 02-15-2023 Registered Referred [facility] [employer] Start: 02-08-2023 End: 02-08-2023 ambulatory [facility] Work Phone: Start: 02-08-2023 End: 02-08-2023 Departed Referred [facility] [employer] Start: 01-31-2023 End: 01-31-2023 ambulatory [facility] Work Phone: Start: 01-31-2023 End: 01-31-2023 Departed Referred [facility] [employer] Start: 01-31-2023 Registered Referred [facility] Start: 01-29-2023 End: 01-29-2023 Departed Referred [facility] Start: 01-29-2023 Registered Referred [facility] Start: 01-26-2023 End: 01-26-2023 Departed Referred [facility] [employer] Start: 01-26-2023 Registered Referred [facility] [employer] Start: 01-24-2023 End: 01-24-2023 Departed Referred [facility] [employer] Start: 01-24-2023 Registered Referred [facility] [employer] Start: 01-22-2023 End: 01-22-2023 ambulatory [facility] Work Phone: Start: 01-22-2023 End: 01-22-2023 [facility] Start: 01-22-2023 [facility] Start: 01-10-2023 End: 01-10-2023 ambulatory [facility] Work Phone: Start: 01-10-2023 End: 01-10-2023 [facility] Start: 01-10-2023 [facility] Start: 12-27-2022 End: 12-27-2022 ambulatory [facility] Work Phone: Start: 12-27-2022 End: 12-27-2022 [facility] Start: 12-27-2022 [facility] Start: 12-21-2022 End: 12-21-2022 ambulatory [facility] Work Phone: Start: 12-21-2022 End: 12-21-2022 [facility] Start: 12-21-2022 [facility] Start: 12-14-2022 End: 12-14-2022 ambulatory [facility] Work Phone: Start: 12-14-2022 End: 12-14-2022 [facility] Start: 12-14-2022 [facility] Start: 12-07-2022 End: 12-07-2022 ambulatory [facility] Work Phone: Start: 12-07-2022 End: 12-07-2022 [facility] Start: 12-07-2022 [facility] Start: 11-24-2022 End: 11-24-2022 ambulatory [facility] Work Phone: Start: 11-24-2022 End: 11-24-2022 Departed Referred [facility] [employer] Start: 11-24-2022 Registered Referred [facility] [employer] Start: 11-23-2022 End: 11-23-2022 ambulatory [facility] Work Phone: Start: 11-23-2022 End: 11-23-2022 [facility] Start: 11-23-2022 [facility] Start: 11-22-2022 End: 11-22-2022 ambulatory [facility] Work Phone: Start: 11-22-2022 End: 11-22-2022 [facility] Start: 11-22-2022 [facility] Start: 11-09-2022 End: 11-09-2022 ambulatory [facility] Work Phone: Start: 11-09-2022 End: 11-09-2022 [facility] Start: 11-09-2022 Registered Referred [facility] Start: 10-26-2022 End: 10-26-2022 [facility] Start: 10-26-2022 Registered Referred [facility] [employer] Start: 10-12-2022 End: 10-12-2022 ambulatory [facility] Work Phone: Start: 10-12-2022 End: 10-12-2022 [facility] Start: 10-12-2022 [facility] Start: 10-05-2022 End: 10-05-2022 [facility] Start: 10-05-2022 [facility] Start: 09-28-2022 End: 09-28-2022 ambulatory [facility] Work Phone: Start: 09-28-2022 End: 09-28-2022 [facility] Start: 09-14-2022 End: 09-14-2022 [facility] Start: 08-31-2022 End: 08-31-2022 [facility] Start: 08-31-2022 [facility] Start: 08-23-2022 End: 08-23-2022 ambulatory [facility] Work Phone: Start: 08-23-2022 End: 08-23-2022 [facility] Start: 08-23-2022 [facility] Start: 08-17-2022 End: 08-17-2022 ambulatory [facility] Work Phone: Start: 08-17-2022 End: 08-17-2022 [facility] Start: 08-17-2022 [facility] Start: 08-14-2022 End: 08-14-2022 ambulatory [facility] Work Phone: Start: 08-14-2022 End: 08-14-2022 [facility] Start: 08-14-2022 [facility] Start: 07-31-2022 End: 07-31-2022 ambulatory [facility] Work Phone: Start: 07-31-2022 End: 07-31-2022 [facility] Start: 07-31-2022 Registered Referred [facility] [employer] Start: 07-24-2022 End: 07-24-2022 ambulatory [facility] Work Phone: Start: 07-24-2022 End: 07-24-2022 [facility] Start: 07-24-2022 Registered Referred [facility] Start: 07-20-2022 End: 07-20-2022 [facility] Start: 07-20-2022 Registered Referred [facility] Start: 07-17-2022 End: 07-17-2022 [facility] Start: 07-17-2022 [facility] Start: 07-11-2022 [facility] Start: 07-10-2022 End: 07-10-2022 ambulatory [facility] Work Phone: Start: 07-10-2022 End: 07-10-2022 [facility] Start: 07-10-2022 [facility] Start: 07-03-2022 End: 07-03-2022 ambulatory [facility] Work Phone: Start: 07-03-2022 End: 07-03-2022 [facility] Start: 07-03-2022 [facility] Start: 06-27-2022 End: 06-27-2022 ambulatory [facility] Work Phone: Start: 06-27-2022 End: 06-27-2022 [facility] Start: 06-27-2022 [facility] Start: 06-13-2022 End: 06-13-2022 ambulatory [facility] Work Phone: Start: 06-13-2022 End: 06-13-2022 Departed Referred [facility] Start: 06-13-2022 Registered Referred [facility] Start: 06-06-2022 End: 06-06-2022 ambulatory [facility] Work Phone: Start: 06-06-2022 End: 06-06-2022 [facility] Start: 06-06-2022 [facility] Start: 05-30-2022 End: 05-30-2022 ambulatory [facility] Work Phone: Start: 05-30-2022 End: 05-30-2022 [facility] Start: 05-30-2022 [facility] Start: 05-16-2022 End: 05-16-2022 ambulatory [facility] Work Phone: Start: 05-16-2022 End: 05-16-2022 [facility] Start: 05-16-2022 Registered Referred [facility] Start: 05-02-2022 End: 05-02-2022 ambulatory [facility] Work Phone: Start: 05-02-2022 End: 05-02-2022 [facility] Start: 05-02-2022 [facility] Start: 04-27-2022 End: 04-27-2022 ambulatory [facility] Work Phone: Start: 04-27-2022 End: 04-27-2022 [facility] Start: 04-27-2022 Registered Referred [facility] [facility] Start: 04-26-2022 End: 04-26-2022 ambulatory [facility] Work Phone: Start: 04-26-2022 End: 04-26-2022 Departed Referred [facility] [facility] Start: 04-11-2022 End: 04-11-2022 ambulatory [facility] Work Phone: Start: 04-11-2022 End: 04-11-2022 Departed Referred [facility] Start: 03-28-2022 End: 03-28-2022 Departed Referred [facility] [facility] Start: 03-28-2022 Registered Referred [facility] Start: 03-23-2022 End: 03-23-2022 Departed Referred [facility] [facility] Start: 03-23-2022 Registered Referred [facility] Start: 03-16-2022 End: 03-16-2022 ambulatory [facility] Work Phone: Start: 03-16-2022 End: 03-16-2022 Departed Referred [facility] Start: 03-16-2022 Registered Referred [facility] [facility] Start: 03-09-2022 End: 03-09-2022 ambulatory [facility] Work Phone: Start: 03-09-2022 End: 03-09-2022 Departed Referred [facility] [facility] Start: 03-09-2022 Registered Referred [facility] Start: 03-06-2022 End: 03-06-2022 ambulatory [facility] Work Phone: Start: 03-06-2022 End: 03-06-2022 [facility] Start: 03-06-2022 Registered Referred [facility] Start: 03-02-2022 End: 03-03-2022 Emergency department patient visit UNKNOWN PROVIDER [facility] Start: 03-02-2022 End: 03-02-2022 Emergency department patient visit Lanette Munguia Work Phone: [facility] Emergency Dept Comment on above: Fall, initial encoun ter (Primary Dx); Anticoagulated Start: 02-20-2022 End: 02-20-2022 Departed Referred [facility] Start: 02-20-2022 Registered Referred [facility] [facility] Start: 02-13-2022 End: 02-13-2022 ambulatory [facility] Work Phone: Start: 02-13-2022 End: 02-13-2022 Departed Referred [facility] Start: 02-13-2022 Registered Referred [facility] [employer] Start: 02-06-2022 End: 02-06-2022 ambulatory [facility] Work Phone: Start: 02-06-2022 End: 02-06-2022 Departed Referred [facility] [employer] Start: 02-06-2022 Registered Referred [facility] [employer] Start: 01-30-2022 End: 01-30-2022 Departed Referred [facility] [employer] Start: 01-30-2022 Registered Referred [facility] [employer] Start: 01-26-2022 End: 01-26-2022 ambulatory [facility] Work Phone: Start: 01-26-2022 End: 01-26-2022 Departed Referred [facility] [employer] Start: 01-26-2022 Registered Referred [facility] [employer] Start: 01-19-2022 End: 01-19-2022 ambulatory [facility] Work Phone: Start: 01-19-2022 End: 01-19-2022 [facility] Start: 01-19-2022 [facility] Start: 01-17-2022 ambulatory [facility] Start: 01-10-2022 ambulatory [facility] Start: 01-10-2022 End: 01-10-2022 ambulatory [facility] Work Phone: Start: 01-10-2022 End: 01-10-2022 [facility] [employer] Start: 01-10-2022 Registered Referred [facility] [employer] Start: 01-06-2022 AUDIT Monika Elias rt Work Phone: [facility] Work Phone: Start: 01-05-2022 End: 01-05-2022 [facility] Start: 01-05-2022 [facility] Start: 12-30-2021 End: 12-30-2021 [facility] [employer] Start: 12-30-2021 Registered Referred [facility] [employer] [facility] Start: 12-28-2021 End: 12-28-2021 ambulatory [facility] Work Phone: Start: 12-28-2021 End: 12-28-2021 [facility] Start: 12-28-2021 [facility] [employer] Start: 12-26-2021 End: 12-26-2021 ambulatory [facility] Work Phone: Start: 12-26-2021 End: 12-26-2021 [facility] [employer] Start: 12-26-2021 [facility] Start: 12-22-2021 End: 12-22-2021 ambulatory [facility] Work Phone: Start: 12-22-2021 End: 12-22-2021 Departed Referred [facility] Start: 12-22-2021 Registered Referred [facility] Start: 12-22-2021 End: 12-22-2021 [facility] Start: 12-21-2021 End: 12-22-2021 Emergency department patient visit Sharon Olivia MD Work Phone: [facility] Emergency Dept Comment on above: Heel ulceration, lef t, with unspecified severity (HCC) (Primary Dx) Start: 12-19-2021 End: 12-19-2021 ambulatory [facility] Work Phone: Start: 12-19-2021 End: 12-19-2021 Departed Referred [facility] Kathy [facility] Start: 12-19-2021 Registered Referred [facility] Start: 12-12-2021 End: 12-12-2021 ambulatory [facility] Work Phone: Start: 12-12-2021 End: 12-12-2021 Departed Referred [facility] [employer] Start: 12-12-2021 Registered Referred [facility] [employer] Start: 12-08-2021 End: 12-08-2021 ambulatory [facility] Work Phone: Start: 12-08-2021 End: 12-08-2021 Departed Referred [facility] [employer] Start: 12-08-2021 Registered Referred [facility] Start: 12-05-2021 End: 12-05-2021 ambulatory [facility] Work Phone: Start: 12-05-2021 End: 12-05-2021 Departed Referred [facility] [employer] Start: 12-05-2021 [facility] [facility] Start: 12-01-2021 End: 12-01-2021 [facility] Start: 12-01-2021 [facility] Start: 11-28-2021 End: 11-28-2021 [facility] [employer] Start: 11-28-2021 [facility] [facility] Start: 11-25-2021 Rx Renewal Monika Elias rt Work Phone: [facility] Work Phone: Start: 11-23-2021 End: 11-23-2021 [facility]ed [facility] [employer] Start: 11-23-2021 [facility] [facility] Start: 11-22-2021 End: 11-22-2021 [facility]ed [facility] Start: 11-22-2021 [facility] [facility] Start: 11-21-2021 End: 11-21-2021 [facility]ed [facility] [employer] Start: 11-15-2021 AUDIT Shiela Jada rt Work Phone: [facility] Work Phone: Start: 11-14-2021 End: 11-14-2021 [facility]ed [facility] Start: 11-14-2021 [facility] Start: 11-08-2021 End: 11-08-2021 [facility]ed [facility] [employer] Start: 11-08-2021 [facility] [facility] Start: 11-04-2021 End: 11-04-2021 [facility]arted [facility] Start: 11-04-2021 Registered Referred [facility] [employer] Start: 10-31-2021 End: 11-01-2021 Emergency department patient visit UNKNOWN PROVIDER [facility] Start: 10-31-2021 End: 11-01-2021 Emergency department patient visit Dante Kim MD Work Phone: [facility] Emergency Dept Comment on above: Other fatigue (Prima ry Dx) Start: 10-31-2021 End: 10-31-2021 Departed Referred [facility] Start: 10-21-2021 End: 10-29-2021 Evaluation and management of inpatient UNKNOWN PROVIDER [facility] Start: 10-21-2021 End: 10-29-2021 Evaluation and management of inpatient Lisa Michelle DO Work Phone: [facility] Comment on above: Leg swelling (Primar y Dx); Acute deep vein thrombosis (DVT) of proximal vein of lower extremity, unspecified laterality (HCC) Start: 10-20-2021 End: 10-20-2021 Departed Referred [facility] Start: 10-17-2021 Telephone encounter Nicole davis MD Work Phone: [facility] Comment on above: Missed Appointment Start: 09-19-2021 End: 09-19-2021 Departed Referred [facility] Start: 11-02-2020 AUDIT Monika Elias rt Work Phone: [facility] Work Phone: Start: 10-27-2020 AUDIT Monika Elias rt Work Phone: [facility] Work Phone: Start: 07-13-2020 Patient encounter procedure Monika Staley [facility] Work Phone: Start: 04-13-2020 [facility] Work Phone: Start: 04-07-2020 Patient encounter procedure Wing Ritter [facility] Physician [facility] Work Phone: Start: 03-18-2020 Patient encounter procedure Wing Stone 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 Work Phone: Start: 10-26-2021 Ct head/brain w/o co ntrast material Sarina Pineda [employer]MIX BLENDER - CORONER FORENSIC TECHNICIAN Work Phone: Start: 10-26-2021 Prothrombin time Andres Sheridan MD Work Phone: Start: 10-25-2021 Speech and language therapy regime Sarina Pineda [employer] BLENDER - CORONER FORENSIC TECHNICIAN Work Phone: Start: 10-25-2021 Prothrombin time [...] Blood count reticulo cyte automated Ellen Scherer [employer] BLENDER - CORONER FORENSIC TECHNICIAN Work Phone: Start: 10-21-2021 C-reactive protein Loua nn B Niesha [employer] BL[employer]ER - CORONER FORENSIC TECHNICIAN Work Phone: Start: 10-21-2021 Non-invas physiologi c std extremity art 2 level Shruthi Malik [employer] BLENDER - CORONER FORENSIC TECHNICIAN Work Phone: Start: 10-21-2021 Radex calcaneus mini mum 2 views Shruthi Malik [employer] BLENDER - CORONER FORENSIC TECHNICIAN Work Phone: Start: 10-21-2021 Dup-scan xtr [...] men Type: BLOOD SPECIMENOrdering Facility: [facility] Address: [address] [place] [address] Performed By: #### T SCR ####[facility] BLOOD BANKIA [id number] [address] Start: 08-04-2021 Antibody screen Comment on above: Order Comment: Speci men Type: BLOOD SPECIMENOrdering Facility: [facility] Address: [address] [place] [address] Performed By: #### T SCR ####[facility] BLOOD BANKIA [id number] [address] Start: 08-01-2021 Antibody screen Comment on above: Order Comment: Speci men Type: BLOOD SPECIMENOrdering Facility: [facility] Address: [address] [place] [address] Performed By: #### T SCR ####[facility] BLOOD BANKCLIA [id number] [place] [address] [facility] Start: 06-07-2021 Antibody screen Comment on above: Order Comment: Speci men Type: BLOOD SPECIMEN Performed By: #### T SCR ####[facility] BLOOD BANKCLIA [id number] [place] [address] [facility] Start: 09-02-2020 Lipid 1996 panel - S bradly or Plasma Rebecca Buck MD Work Phone: Start: 04-07-2020 Echocardiography Wing Ritter Start: 11-13-2019 Radiologic examinati on tibia & fibula 2 views 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 (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) Debbie Work Phone: Hernia repair Monika melvin History of Cholecystotomy An yvette Staley History of Creation Of Subdural-Peritoneal CSF Shunt Monika Staley History of Interrupt ion Inferior Vena Cava Potter Filter Placement Monika Staley Urine culture Plan of Treatment Date Care Activity Detail Author Start: 09-22-2026 DTaP/Tdap/Td vaccine (2 - Td or Tdap) DTaP/Tdap/Td vaccine (2 - Td or Tdap) [facility] Start: 09-22-2026 DTaP/Tdap/Td vaccine (2 - Td) DTaP/Tdap/Td vaccine (2 - Td) [facility] Work Phone: Start: 09-22-2026 DTaP/Tdap/Td Vaccine s (2 - Td or Tdap) DTaP/Tdap/Td Vaccines (2 - Td or Tdap) [facility] Start: 09-02-2025 Lipid panel Lipid Panel [facility] Start: 03-02-2025 Registered Referred Registered [facility]er [facility] [employer] Start: 02-26-2025 Registered Referred Registered [facility] [employer] Start: 02-23-2025 Registered Referred Registered Refer red [facility] Start: 02-19-2025 Registered Referred Registered Refer red [facility] [employer] Start: 02-16-2025 Registered Referred Registered Refer red [facility] [employer] [facility] Start: 08-22-2024 DIABETES SCREEN DIABETES SCREEN [facility] Start: 12-04-2023 Lipid panel Lipids [facility] Start: 12-04-2023 Lipid screen Lipid screen [facility] Work Phone: Start: 09-13-2023 End: 09-13-2023 Patient encounter procedure 09/13/2023 11:30 AM EDT Office Visit [facility] [address] [place] [id number] Rebecca Buck MD [address] [place] [address] [facility] Start: 08-31-2023 End: 08-31-2023 Patient encounter procedure 08/31/2023 9:30 AM EDT Appointment [facility] [address] [place] [phone] Rebecca Buck MD [address] [place] [address] [facility] Start: 08-13-2023 End: 08-12-2024 Basic metabolic 1998 panel - Serum or Plasma Basic metabolic panel Lab Routine Calculus of ureter Expected: 08/13/2023 (Approximate), Expires: 08/12/2024 [facility] Comment on above: Expected: 08/13/2023 (Approximate), Expires: 08/12/2024 Start: 08-13-2023 End: 08-12-2024 CT Abdomen WO contrast CT abdomen pelvis wo IV contrast Imaging Routine Left flank pain Calculus of ureter Expected: 08/13/2023, Expires: 08/12/2024 [facility] Comment on above: Expected: 08/13/2023 , Expires: 08/12/2024 Start: 08-13-2023 End: 02-12-2024 PSA, Monitoring ([facility]) PSA, Monitoring ([facility]) Lab Routine Disease of prostate Expected: 08/13/2023 (Approximate), Expires: 02/12/2024 [facility] [employer] Work Phone: Comment on above: Expected: 08/13/2023 (Approximate), Expires: 02/12/2024 Start: 08-13-2023 End: 08-13-2023 Patient encounter procedure 08/13/2023 10:00 AM EDT Office Visit [facility] [address] [place] [phone] Rebecca Buck MD [address] [place] [address] [facility] Start: 07-17-2023 Bacteria identified in Urine by Culture [facility] Start: 07-17-2023 [facility] Start: 07-16-2023 Measurement of substance [facility] Start: 05-07-2023 Medicare Advantage A nnual Wellness Visit Medicare Advantage Annual Wellness Visit [facility] Start: 03-02-2023 Creatinine measurement Creatinine Le carmela [facility] Start: 03-02-2023 Potassium measurement Potassium Leve l [facility] Start: 08-22-2022 Diabetes mellitus screening Diabetes Screening [facility] Start: 01-05-2022 Influenza vaccination S [facility] Start: 12-23-2021 EPV, Provider: Wing Ritter, Status: Pen, Time: 9:30 AM EPV, Provider: Wing Ritter, Status: Pen, Time: 9:30 AM [id number]-Fcr pa Work Phone: Start: 12-05-2021 Influenza vaccination Flu vaccine (# 1) [facility] Start: 12-05-2021 Blood chemistry [facility] Work Phone: Start: 12-05-2021 Complete blood count [facility] Work Phone: Start: 12-05-2021 [facility] Work Phone: Start: 12-01-2021 [facility] Work Phone: Start: 08-05-2021 COVID-19 VACCINE (4 - Booster for Moderna series) COVID-19 VACCINE (4 - Booster for Moderna series) [facility] Start: 08-05-2021 COVID-19 Vaccine (4 - Booster for Pfizer series) COVID-19 Vaccine (4 - Booster for Pfizer series) [facility] Start: 06-01-2021 COVID-19 Vaccine (4 - Booster for Pfizer series) COVID-19 Vaccine (4 - Booster for Pfizer series) [facility] Start: 05-07-2021 ADVANCE DIRECTIVE DISCUSSION ADVANCE DIRECTIVE DISCUSSION [facility] Start: 08-11-2020 Screening for malign ant neoplasm of colon [facility] Start: 07-30-2020 Screening for malign ant neoplasm of colon [facility] Start: 01-20-2020 Echocardiography Echocardiogram [facility] [address] [place] Work Phone: Start: 01-06-2020 Influenza vaccination INFLUENZA (#1) [facility] Start: 12-04-2019 Annual Wellness Visi t (AWV) Annual Wellness Visit (AWV) [facility] Start: 12-04-2019 Creatinine monitoring Creatinine mon itoring [facility] Work Phone: Start: 12-04-2019 Hepatitis C screen Hepatitis C scree n [facility] Work Phone: Comment on above: Postponed from 05/06 (Patient Refused) Start: 12-04-2019 Potassium monitoring Potassium monit oring [facility] Work Phone: Start: 12-04-2019 Prostate specific an tigen measurement Prostate Specific Antigen (PSA) Screening or Monitoring [facility] Start: 12-04-2019 Shingles Vaccine (1 of 2) Day gles Vaccine (1 of 2) [facility] Work Phone: Comment on above: Postponed from 05/06 (Patient Refused) Start: 06-07-2019 Colon Cancer Screen FIT/FOBT [facility] Work Phone: Start: 08-14-2017 LIPID SCREEN LIPID SCREEN [facility] Start: 2017 ADVANCE DIRECTIVE DISCUSSION ADVANCE DIRECTIVE DISCUSSION [facility] Start: 2017 PNEUMOCOCCAL: 65+ (1 - PCV) PNEUMOCOCCAL: 65+ (1 - PCV) [facility] Start: 2017 PNEUMOVAX AGE 65 AND OVER WITH 5YR LOOKBACK (#1) PNEUMOVAX AGE 65 AND OVER WITH 5YR LOOKBACK (#1) [facility] Start: 04-14-2016 DIABETES SCREEN DIABETES SCREEN [facility] Start: 2012 RSV Immunization age d 60 or older (1 - 1-dose 60+ series) RSV Immunization aged 60 or older (1 - 1-dose 60+ series) [facility] Start: 2007 PROSTATE CANCER SCRE ENING DISCUSSION PROSTATE CANCER SCREENING DISCUSSION [facility] Start: 2002 Shingles vaccine (1 of 2) Day gles vaccine (1 of 2) [facility] Start: 2002 SHINGRIX VACCINE (1 of 2) DAY GRIX VACCINE (1 of 2) [facility] Start: 2002 Tuberculosis screening COLOREC MONIQUE CANCER SCREENING,SEE MODIFIER [facility] Start: 2002 Zoster Vaccines (1 of 2) Zoste r Vaccines (1 of 2) [facility] Start: 1997 COLOGUARD (FIT-DNA) COLOGUARD (FIT-D NA) [facility] Start: 1997 Colonoscopy COLONOSCOPY [facility] Start: 1997 COLORECTAL CANCER SCREENING COLORECTAL CANCER SCREENING [facility] Start: [address] COLONOGRAPHY [facility] Start: 1997 FECAL OCCULT BLOOD FECAL OCCULT BLOO D [facility] Start: 1997 Screening for malign ant neoplasm of colon [facility] Start: 1997 SIGMOIDOSCOPY SIGMOIDOSCOPY [facility] Start: 1987 Diabetes screen Diabetes screen [facility] Start: 1971 Urine microalbumin profile DTAP,TDAP,TD (1 - Tdap) [facility] Start: 1970 ANNUAL PCP TEAM STUDIO ARTIST KEESHA DISEASE VISIT ANNUAL PCP TEAM CHRONIC DISEASE VISIT [facility] Start: 1970 BP CONTROLLED (<130/80) BP CONTROLLE D (<130/80) [facility] Start: 1970 Diabetes mellitus screening Diabetes Screening [facility] Start: 1970 HEPATITIS C SCREENING HEPATITIS C SC PHIL [facility] Start: 1970 Hepatitis C screening S [facility] Start: 1964 Adult depression screening assessment DEPRESSION SCREENING [facility] Start: 1964 Depression Screen Depression Screen [facility] Start: 1962 Diabetic foot examination Diabetes: Foot Exam [facility] Start: 1962 Glaucoma screening Diabetes: R etinopathy Screening [facility] Start: 1962 Preventive dental service Diabetes: Dental Exam [facility] Start: 1952 Echocardiography Echocardiogram [facility] Start: 1952 Hemoglobin A1c measurement Diabetes: Hemoglobin A1C [facility] Start: 1952 Lipid panel Lipid Panel [facility] Start: 1952 Screening for malign ant neoplasm of colon [facility] Bacteria identified in Urine by Culture Urine Culture [facility] Work Phone: End: 03-02-2022 CBC W Auto Differential panel - Blood CBC with Auto Differential Lab Routine One Time for 1 Occurrences starting 03/02/2022 until 03/02/2022 [facility] Work Phone: Comment on above: One Time for 1 Occur rences starting 03/02/2022 until 03/02/2022 End: 03-02-2022 Comprehensive metabolic 2000 panel - Serum or Plasma Comprehensive Metabolic Panel Lab STAT One Time for 1 Occurrences starting 03/02/2022 until 03/02/2022 [employer] Work Phone: Comment on above: One Time for 1 Occur rences starting 03/02/2022 until 03/02/2022 End: 09-06-2023 CT Abdomen WO contrast [facility] [employer] Work Phone: Comment on above: Once for 1 Occurrenc es starting 09/06/2023 until 09/06/2023 End: 12-22-2021 Culture, Blood 2 Culture, Blood 2 Microbiology STAT One Time for 1 Occurrences starting 12/22/2021 until 12/22/2021 [employer] Work Phone: Comment on above: One Time for 1 Occur rences starting 12/22/2021 until 12/22/2021 End: 12-22-2021 Microscopic examination of blood, culture Culture, Blood Microbiology STAT One Time for 1 Occurrences starting 12/22/2021 until 12/22/2021 [employer] Work Phone: Comment on above: One Time for 1 Occur rences starting 12/22/2021 until 12/22/2021 Microscopic examinat ion of blood, culture Culture, Blood Microbiology STAT 12/22/2021 12:22 AM EDT [facility] Work [facility]: Oxygen therapy [[facility] Data Set] Initiate Oxygen Therapy Protocol Respiratory Care Routine As Needed until discontinued starting 10/21/2021 [facility] Comment on above: As Needed until disc ontinued starting 10/21/2021 Protime-INR Protime-INR Lab Routine Daily until discontinued starting 10/23/2021, 7 completed [facility] Work Phone: Comment on above: Daily until disconti nued starting 10/23/2021, 7 completed End: 03-02-2022 Protime-INR Protime-INR Lab Routine One Time for 1 Occurrences starting 03/02/2022 until 03/02/2022 [facility] Work Phone: Comment on above: One Time for 1 Occur rences starting 03/02/2022 until 03/02/2022 Spirometry panel Incentive stef metry Respiratory Care Routine Daily until discontinued starting 10/21/2021 [facility] Work Phone: Comment on above: Daily until disconti nued starting 10/21/2021 End: 10-21-2021 Wound ostomy eval Wound ostomy eval Wound Ostomy Routine One Time for 1 Occurrences starting 10/21/2021 until 10/21/2021 [facility] Work Phone: Comment on above: One Time for 1 Occur rences starting 10/21/2021 until 10/21/2021 [facility] NEGATED: Highlighted row has been ruled out! Planned Goals not documented [facility] Work Phone: Immunizations Immunization Date Immunization Notes Care Provider Christopher chu 03-04-2019 influenza, high dose seasonal, preservative-free [facility] 12-03-2018 pneumococcal polysac charide vaccine, 23 valent Sarika Salas [facility] Work Phone: 01-25-2018 influenza, high dose seasonal, preservative-free [facility] 02-14-2017 influenza, injectabl e, quadrivalent, contains preservative [facility] 09-22-2016 pneumococcal conjuga te vaccine, 13 valent Sarika Salas [facility] Work Phone: 09-22-2016 tetanus toxoid, redu patrice diphtheria toxoid, and acellular pertussis vaccine, adsorbed Sarika ARMENDARIZ Work Phone: 02-24-2016 influenza, injectabl e, quadrivalent, contains preservative Sarika ARMENDARIZ 02-08-2015 influenza virus vacc ine, unspecified formulation Sarika ERAZOA Work Phone: 02-04-2013 pneumococcal Conjuga te, unspecified formulation Sarika ARMENDARIZ Work Phone: Payers Date Payer Category Payer Unknown [id number] 03-19-2024 Self-pay 01-05-2022 Medicaid 01-05-2022 Medicare 01-05-2022 Medicare [id number] 10-05-2021 Medicaid [id number] 06-07-2021 Medicare UHC MEDICARE UHC DUAL COMPLETE HMO SNP [id number] 06/07/2021-Present [phone] [address] [place] [address] Medicare [id number] 1.2.840.069696.1.13.159. 2.7.3.500730.315 06-07-2021 Medicare UHC MEDICARE UNITEDHEALTHCARE DUAL COMPLETE [id number] 06/07/2021-Present [phone] [address] [place] [address] [id number] 1.2.840.524230.1.13.239. 2.7.3.584122.315 11-05-2019 Medicare UHC AARP MEDICAR E [facility] AARP MEDICARE HMO [id number] 11/05/2019-Present O [id number] 1.2.840.712128.1.13.159. 2.7.3.439455.315 07-06-2015 Medicare UHC MEDICARE UHC MEDICARE COMPLETE xxxxxxxxx 2015-Present xxxxxxxxx 1.2.840.853057.1.13.239. 2.7.3.679562.315 1950 Unknown [id number] 2.16.840.1.251964.3.579. 2.668 1950 Unknown [id number] 2.840.1.814571.3.579. 2.668 1950 Unknown [id number] 2..840.1.132258.3.579. 2.05-06-1950 Unknown [id number] .840.1.546817.3.579. 2.05-06-1950 Unknown [id number] 2.840.1.597854.3.579. 2.05-06-1950 Unknown [id number] 2.840.1.487904.3.579. 2.8 1950 Unknown [id number] 2.840.1.514289.3.579. 2.8 Private Health Insurance Unknown Unknown [id number] 2.840.1.175470.3.579. 2.462 Unknown [id number] 2.840.1.775513.3.579. 2.462 Unknown [id number] 2.840.1.187681.3.579. 2.462 Unknown [id number] 2.840.1.562131.3.579. 2.462 Unknown [id number] 2.840.1.852498.3.579. 2.462 Unknown [id number] .840.1.480644.3.579. 2.462 Unknown [id number] 2.840.1.673086.3.579. 2.462 Unknown [id number] 2.840.1.017013.3.579. 2.462 Unknown [id number] 2.840.1.887139.3.579. 2.462 Unknown [id number] 2.840.1.937719.3.579. 2.462 Unknown [id number] 2.16.840.1.200134.3.579. 2.462 Unknown [id number] 2.16.840.1.366684.3.579. 2.462 Unknown 56400532 2.16.840.1.518766.3.579. 2.462 Unknown [id number] 2.16.840.1.159451.3.579. 2.462 Unknown [id number] 2.16.840.1.180868.3.579. 2.462 Unknown [id number] 2.16.840.1.221130.3.579. 2.462 Unknown 64010401 2.840.1.660644.3.579. 2.462 Unknown 43229755 2..840.1.495624.3.579. 2.462 Unknown 29303075 2.840.1.033149.3.579. 2.462 Unknown 23573618 2.840.1.662584.3.579. 2.462 Unknown 29785613 2.840.1.849613.3.579. 2.462 Unknown [id number] 2.16.840.1.140439.3.579. 2.462 Unknown [id number] 2.16.840.1.099477.3.579. 2.462 Unknown [id number] 2.840.1.930359.3.579. 2.462 Unknown [id number] 2..840.1.794516.3.579. 2.462 Unknown [id number] 2.16.840.1.116528.3.579. 2.462 Unknown [id number] 2.16.840.1.994231.3.579. 2.462 Unknown [id number] 2.16.840.1.380276.3.579. 2.462 Unknown [id number] 2.840.1.834985.3.579. 2.462 Unknown [id number] 2.16.840.1.330583.3.579. 2.462 Unknown [id number] 2.16.840.1.572237.3.579. 2.462 Unknown [id number] 2.16.840.1.363811.3.579. 2.462 Unknown [id number] 2.16840.1.749851.3.579. 2.462 Unknown [id number] 2.16.840.1.143700.3.579. 2.462 Unknown [id number] 2.840.1.450401.3.579. 2.462 Unknown [id number] 2.840.1.435187.3.579. 2.462 Unknown [id number] 2.840.1.949968.3.579. 2.462 Unknown [id number] 2.840.1.365419.3.579. 2.462 Unknown [id number] 2.840.1.651783.3.579. 2.462 Unknown [id number] 2.840.1.232792.3.579. 2.462 Unknown [id number] 2.840.1.099726.3.579. 2.462 Unknown [id number] 2.840.1.428846.3.579. 2.462 Unknown [id number] 2.840.1.395457.3.579. 2.462 Unknown [id number] 2.840.1.720058.3.579. 2.462 Unknown [id number] 2.840.1.033766.3.579. 2.462 Unknown [id number] 2.840.1.469323.3.579. 2.462 Unknown [id number] 2.16840.1.127153.3.579. 2.462 Unknown [id number] 2.16.840.1.405640.3.579. 2.462 Unknown [id number] 2.16.840.1.043275.3.579. 2.462 Unknown [id number] 2.16.840.1.745011.3.579. 2.462 Unknown [id number] 2.16.840.1.267169.3.579. 2.462 Unknown [id number] 2.16.840.1.773641.3.579. 2.462 Unknown [id number] 2.16.840.1.824017.3.579. 2.462 Unknown [id number] 2..840.1.569923.3.579. 2.462 Unknown [id number] 2..840.1.303329.3.579. 2.462 Unknown [id number] 2.840.1.242641.3.579. 2.462 Unknown [id number] 2..840.1.045153.3.579. 2.462 Unknown [id number] 2..840.1.739739.3.579. 2.462 Unknown [id number] 2..840.1.626301.3.579. 2.462 Unknown [id number] 2..840.1.662806.3.579. 2.462 Unknown [id number] 2.840.1.880816.3.579. 2.462 Unknown [id number] 2..840.1.593706.3.579. 2.462 Unknown [id number] 2..840.1.731717.3.579. 2.462 Unknown [id number] 2.16.840.1.507263.3.579. 2.462 Unknown [id number] 2.16.840.1.489554.3.579. 2.462 Unknown [id number] 2..840.1.180175.3.579. 2.462 Unknown [id number] 2.16.840.1.430422.3.579. 2.462 Unknown [id number] 2.16.840.1.960288.3.579. 2.462 Unknown [id number] 2.16.840.1.895359.3.579. 2.462 Unknown [id number] 2.16.840.1.879362.3.579. 2.462 Unknown [id number] 2.16.840.1.539891.3.579. 2.462 Unknown 48356095 2.16.840.1.466789.3.579. 2.462 Unknown 76668318 2.16.840.1.182870.3.579. 2.462 Unknown 44149802 2.16.840.1.506382.3.579. 2.462 Unknown 24579089 2.16840.1.142502.3.579. 2.462 Unknown 53130008 2.16840.1.146506.3.579. 2.462 Unknown 76059154 2.16.840.1.835620.3.579. 2.462 Unknown 85320921 2.16.840.1.463920.3.579. 2.462 Unknown 60263748 2.16.840.1.517851.3.579. 2.462 Unknown 24769303 2.16.840.1.228956.3.579. 2.462 Unknown 44891746 2.16.840.1.540141.3.579. 2.462 Unknown 99452459 2.16.840.1.091464.3.579. 2.462 Unknown 14959204 2.16.840.1.092811.3.579. 2.462 Unknown 35032408 2.16.840.1.733466.3.579. 2.462 Unknown 55269172 2.16.840.1.039088.3.579. 2.462 Unknown 05327972 2.16.840.1.364227.3.579. 2.462 Unknown 16162216 2.16.840.1.109810.3.579. 2.462 Unknown 81680095 2.16.840.1.234079.3.579. 2.462 Unknown 83765790 2.16.840.1.307260.3.579. 2.462 Unknown 00944115 2.16.840.1.679099.3.579. 2.462 Unknown 31836663 2.16.840.1.776016.3.579. 2.462 Unknown 19149420 2.16.840.1.742552.3.579. 2.462 Unknown 41572282 2.16.840.1.467899.3.579. 2.462 Unknown 54973316 2.16.840.1.315988.3.579. 2.462 Unknown 91100960 2.16.840.1.179895.3.579. 2.462 Unknown 65840873 2.16.840.1.722977.3.579. 2.462 Unknown 91400491 2.16.840.1.696664.3.579. 2.462 Unknown 95721780 2.16.840.1.466643.3.579. 2.462 Unknown 72593620 2.16.840.1.652449.3.579. 2.462 Unknown 91377962 2.16.840.1.031590.3.579. 2.462 Unknown 98761389 2.16.840.1.550304.3.579. 2.462 Unknown 86329663 2.16.840.1.603707.3.579. 2.462 Unknown 74588745 2.16.840.1.709132.3.579. 2.462 Unknown 56476825 2.16.840.1.763652.3.579. 2.462 Unknown 13899437 2.16.840.1.580796.3.579. 2.462 Unknown 22166782 2.16.840.1.089960.3.579. 2.462 Unknown 57438847 2.16.840.1.636829.3.579. 2.462 Unknown 74702656 2.16.840.1.402281.3.579. 2.462 Unknown 13874753 2.16.840.1.032166.3.579. 2.462 Unknown 06154226 2.16.840.1.225056.3.579. 2.462 Unknown 43757401 2.16.840.1.194511.3.579. 2.462 Unknown [id number] 2.16.840.1.089714.3.579. 2.462 Unknown [id number] 2.16.840.1.166613.3.579. 2.462 Unknown [id number] 2.16.840.1.936717.3.579. 2.462 Unknown [id number] 2.16.840.1.487989.3.579. 2.462 Social History Date Type Detail Facility Start: 05-23-2018 End: 05-19-2019 Tobacco smoking status KYIS Former smoker [employer] Work Phone: History of tobacco use Cigar Smoker [employer] Work Phone: Start: 05-19-2019 End: 08-13-2023 Cigarettes smoked current (pack per day) - Reported [employer] Work Phone: Start: 05-19-2019 End: 08-13-2023 Alcohol intake Current non-drinker of alcohol (finding) [facility] Work Phone: Start: 12-03-2018 History SDOH Physica l Activity DPW 7 [employer] Work Phone: Start: 12-03-2018 History SDOH Physica l Activity MPS 9 [facility] Work Phone: Start: 12-03-2018 End: 10-31-2021 History SDOH Stress 1 [facility] Work Phone: Start: 12-03-2018 History SDOH Financial 5 [facility] Work Phone: Start: 12-03-2018 History SDOH Transpo rt Med 2 [facility] Work Phone: Start: 1950 Sex Assigned At Not on file S [facility] Work Phone: Start: 08-13-2012 End: 11-13-2019 Tobacco smoking status NHIS Never smoker [facility] Start: 05-23-2018 End: 11-13-2019 Tobacco use and exposure Never used [facility] Start: 11-13-2019 History SDOH Alcohol Std Drinks 98 [facility] Start: 10-11-2021 End: 02-15-2022 Exposure to SARS-CoV-2 (event) Not sure [facility] Start: 1950 Sex Assigned At Male [facility] History of tobacco use Current smoker [facility] Work Phone: History of tobacco use Cigarette Smoker S [facility] Work Phone: Start: 10-31-2021 End: 08-13-2023 Tobacco use panel [facility] Tobacco smoking stat us KYIS Unknown if ever smoked [facility] Work Phone: Start: 07-11-2024 End: 08-21-2024 Sex Male (finding) [facility] NEGATED: Highlighted row - - [facility] Work Phone: Medical Equipment Procedure Code Equipment Code Equipment Origin al Text Equipment Identifier Dates Kit Bactiseal Woodard maria guadalupe Silicone Barium Catheter Shunt Sterile - [id number] Start: 06-08-2021 Catheter Bactise al 14cm External Drainage Csf Sterile Latex Free - [id number] Start: 08-05-2021 Valve Certas Shannon nt Inline - [id number] Start: 06-08-2021 Valve Certas Shannon nt Inline - [id number] Start: 08-05-2021 [facility] - [id number] Start: 08-09-2021 Goals Date Patient Goal [...] status health issues are not documented Disease [facility] Physician [facility] Work Phone: Mental Status Date Assessment Result Facility NEGATED: Highlighted row Cognitive function [Interpretation] Cognitive status health issues are not documented Disease [facility] Work Phone: Clinical [...] Hydrocephalus, adult (CMS/HCC) (HCC) Kidney stone Neuropathy SHOE RECONDITIONER (ventriculoperitoneal) shunt status Past Surgical History: Procedure [...] 09/13/23 12:05 PM documented in this encounter [facility] 08-31-2023 Note S: Shanthi from [facility] spoke with [facility] nurse regarding voiding trial procedure. [...] Protocols used: Information Only Call - No [facility] Telephone encounter Note S: Shanthi from [facility] spoke with [facility] nurse regarding voiding trial procedure. [...] Protocols used: Information Only Call - No Kzodlg-QIMLE-DW [facility] 08-31-2023 Miscellaneous Notes S: Shanthi from [facility] [place] spoke with [facility] nurse regarding voiding trial [...] Protocols used: Information Only Call - No Slgnel-ZCMSM-NC documented in this encounter [facility] 08-29-2023 Telephone encounter Note Chidi on greg vm to advise them to call the number for the auto body shop manager to get clarification, and to call back with further questions [facility] 08-29-2023 Miscellaneous Notes Chidi on greg vm to advise them to call the number for the auto body shop manager to get clarification, and to call back with further questions Yes, they will need to call the number given to them. Please advise Name of caller: Shanthi Contact phone number: [phone] Relationship to Patient: patient Provider: MD Quinn Practice: [facility] Chief Complaint/Reason for Call: Shanthi called [...] to reach out to call Maury Cedeño Casual Shoe Inspector at [facility] [phone] to get clarifications. [facility] did reach back out to [facility] and advised and provider Maury's #. Please advise Best time of day caller can be reached: Any Patient advised that office/PCP has 24-48 business hours to return their call: N/A documented in this encounter [facility] 08-27-2023 Telephone encounter Note Yes, they will need to call the number given to them. [facility] 08-27-2023 Telephone encounter Note Please advise [facility] 08-21-2023 Telephone encounter Note Name of caller: Shanthi Contact phone number: [phone] Relationship to Patient: patient Provider: MD Quinn Practice: [facility] Urology Chief Complaint/Reason for Call: Shanthi called [...] to reach out to call Maury Cedeño Casual Shoe Inspector at [facility] [phone] to get clarifications. CAC did reach back out to [facility] and advised and provider Maury's #. Please advise Best time of day caller can be reached: Any Patient advised that office/PCP has 24-48 business hours to return their call: N/A [facility] 08-13-2023 History of Present illness Narrative [...] Hydrocephalus, adult (CMS/HCC) (HCC) Kidney stone Neuropathy SHOE RECONDITIONER (ventriculoperitoneal) shunt status Past Surgical History: Past [...] 08/13/23 10:45 AM documented in this encounter [facility] 06-25-2023 Telephone encounter Note [facility] called in stating appt scheduled 07/10/23 [place] has to be made further out, pt being transported by cot. Changed appt to 08/13/23 per [facility] only avail time for transport, first avail with DR Buck at 10:00 AM. [facility] 06-25-2023 [facility]isc[facility]23 [place] has to be made further out, pt being transported by cot. Changed appt to 08/13/23 per [facility] only avail time for transport, first avail with DR Buck at 10:00 AM. documented in this encounter [facility] 12-22-2021 Hospital Discharge instructions SANIA Lou - 12/22/2021 2:32 AM EDT Please take medication as prescribed Please follow up with your Physicians as instructed in this discharge paperwork Thank you for choosing [facility] I appreciate your patience Please return to the emergency department if your symptoms worsen, or new symptoms develop as discussed documented in this encounter [facility] Work Phone: 10-29-2021 Note Hospitalist [...] abnormality and previous indwelling tubing history of SHOE RECONDITIONER shunt ? #?Bilateral lower extremity wounds-wound care [...] neurologist. Patient will be transferred to the detention and his Coumadin was continued, dosing instructions were given. Wound care was given for his lower extremity wounds. Consults: neurology, vascular surgery, gastroenterology Discharge Instructions: Diet: No diet orders on file Activity: as tolerated Disposition: Patient discharged in stable condition to detention . Greater than 30 minutes spent discharging [...] Your Medications These medications were sent to [facility] [address] [place] [address] [address] [facility] - P [phone] - F [phone] [facility] [address] ? levETIRAcetam 750 MG tablet ? warfarin 6 MG tablet Recommended Follow-up: No follow-up provider specified. Complexity of Follow up: [] Moderate Complexity: follow up within 7-14 calendar days (47613) [x] Severe Complexity: follow up within 7 calendar days (64114) Follow up Testing, Pending results or Referrals [...] fatigue or (more content not included)... [facility] 10-29-2021 Hospital Discharge instructions Fabi Subramanian RN - 10/29/2021 12:03 PM EDT Continuity of Care Form Patient Name: Andrew Sifuentes : 1950 Admit date: 10/21/2021 Discharge date: 10/29/2021 Code Status Order: Full Code Advance Directives: Admitting Physician: May Cash MD PCP: MONIKA STALEY MD Discharging Nurse: Fabi [facility] Hospital Unit/Room#: 146/1461 Discharging Unit Emergency Contact: Extended Emergency Contact Information Primary Emergency Contact: NelsonTriny Address: [address] [place] [address] [address] [place], [place] [address] [place] [address] Relation: Brother/Sister Secondary Emergency Contact: Melissa Sifuentes Mobile Relation: Child Preferred language: Cuban Past Surgical History: Past Surgical History: Procedure Laterality Date BRAIN SURGERY CHOLECYSTECTOMY COLONOSCOPY HERNIA REPAIR Immunization History: Immunization History Administered Date(s) Administered Influenza Virus Vaccine 02/08/2015 Influenza, High Dose (Fluzone 65 yrs and older) 01/25/2018, 03/04/2019 Influenza, Quadv, IM, (6 mo and older Fluzone, Flulaval, Fluarix and 3 yrs and older Afluria) 02/24/2016, 02/14/2017 Pneumococcal Conjugate 13-valent (Aannhyg46) 09/22/2016 Pneumococcal Conjugate Vaccine 02/04/2013 Pneumococcal Polysaccharide (Cgqubhcth81) 12/03/2018 Tdap (Boostrix, Adacel) 09/22/2016 Active Problems: Patient Active Problem List Diagnosis Code Flank pain, acute R10.9 Night muscle spasms M62.838 Chronic fatigue R53.82 Hydrocephalus ([facility]) G91.9 Neuropathy G62.9 Erectile dysfunction N52.9 Fluid retention in tissues R60.9 Hyperlipidemia E78.5 Morbidly obese ([facility]) E66.01 Leg wound, left S81.802A DVT, lower extremity, recurrent, unspecified laterality ([facility]) I82.409 Moderate malnutrition ([facility]) E44.0 History of seizures Z87.898 [...] Dependent Dressing Dependent Toileting Dependent Feeding Dependent Volunteer Manager Dependent Med Delivery whole in pudding [...] Q4H prn SOB Oxygen Therapy: {Therapy; copd oxygen:55287} Ventilator: { CC Vent List:[id number]} Rehab Therapies: {THERAPEUTIC INTERVENTION:9703802111} Weight Bearing Status/Restrictions: Weight Bearing - Patient was bedbound in hospital Other Medical Equipment (for information only, NOT a DME order): wheelchair, hospital bed, and Boaz Other Treatments: Patient's personal belongings (please select all that are sent with patient): {[facility] DME Belongings:356149914} RN SIGNATURE: CASE MANAGEMENT/SOCIAL WORK SECTION Inpatient Status Date: Readmission Risk Assessment Score: Readmission Risk Risk of Unplanned Readmission: 11 Discharging to Facility/ Agency Name: Address: Phone: Fax: Dialysis Facility (if applicable) Name: Address: Dialysis Schedule: Phone: Fax: Pediatric Oncology Nurse/Marker Machine Attendant signature: {Esignature:[id number]} PHYSICIAN SECTION Prognosis: Fair Condition at Discharge: Stable Rehab Potential (if transferring to Rehab): Fair Recommended Labs or Other Treatments After Discharge: Coumadin based on INR target range 2-3, Coumadin 6 mg on 10/30 and 10/31, recheck INR 11/01 and notify physician, ideally should be on 6 mg alt with 7 mg daily, PT/OT, follow-up with neurologist in 1 month, continue [facility] Physician Certification: I certify the above information and transfer of Andrew Sifuentes is necessary for the continuing treatment of the diagnosis listed and that he requires Long-Term Facility for greater than 30 days. Update Admission H&P: No change in H&P PHYSICIAN SIGNATURE: documented in this encounter [facility]: 10-29-2021 History of Present illness Narrative [facility] Anticoagulation Management Service ([facility]) Inpatient Warfarin Consult HPI: Andrew Sifuentes is a 71 y.o. 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 Past Medical History: Diagnosis Date ED (erectile dysfunction) Hemorrhoids Hydrocephalus, adult (HCC) Kidney stone Neuropathy SHOE RECONDITIONER (ventriculoperitoneal) shunt status Patient is newly referred to the [facility] clinic for warfarin management. Pt [...] PharmD IRVIN Consult Service is available daily [phone]. Please search for covering pharmacist name via [employer] or Groups --> Pharmacy --> Anti-Coagulation Consult Pharmacist (on 3rd page). If no response via [employer], please page [phone]. Patient seen and chart reviewed. Afebrile. Adequate [...] yr M with H obstructive hydrocephalus s/p SHOE RECONDITIONER shunt in 1987, needing multiple revisions and [...] normal limits and both old and new SHOE RECONDITIONER shunt tubing noted. At present patient is awake, follows commands, was able to tell his name, and that he was in hospital but not oriented to time. Per documentation patient had NCSE in May 2021, was on Vimpat, but it was discontinued as there was no evidence of recurrent seizures in july 2021 by Neurology at [facility], per daughter patient was on Dilantin [...] normal limits and both old and new SHOE RECONDITIONER shunt tubing noted -EEG mild to moderate slow, no seizures reported -Labs reviewed -Hydrocephalus management per Neurosurgery. At present patient does not have hydrocephalus on CT head done this admission. No Neuro[facility]. Patient can follow up with Neurosurgery as outpatient and if ends up needing inpatient neurosurgery requirement then may need to be transferred to [facility]. -No clear clinical signs of ventriculitis. Defer evaluation to primary medical team/ID as deemed necessary. -Discussed with daughter in detail on . She was concerned that patient has had h/o seizures, and he has been taken off seizure medication, per note documentation patient had NCSE in May 2021 when he was admitted to [facility]. Per daughter she would want patient [...] the weekend, primary hospitalist team to contact structural ironworker Neurology at [facility] for any weekend neurological issues related to the patient and if need to discuss any neurological test results/findings. Other deal in house Neurology coverage will be available from [facility] and please call structural ironworker Neurology back on Sunday if need further assistance. This note has been generated using [employer] dictation software. It may contain incorrect words, punctuation's and spellings that were not noted in the review of the note prior to signing. This note has been generated using [employer] dictation software. It may contain incorrect words, [...] eGFR >90.0 >60 mL/min EGFR IF NonAfrican Northern Irish >90.0 >60 mL/min Calcium 9.1 8.4 - [...] 26 AST 24 BILITOT 0.4 LABALBU 3.7 @BRIEFLAB([facility]) ABGs: )No results for input(s): [...] Radiology ACCESSION EXAM DATE/TIME PROCEDURE ORDERING PROVIDER [id number] 10/21/2021 15:30 EDT CR Calcaneus 2+ Views [id number] -HELENA, SHRUTHI Left CPT code 88649 Reason For Exam (CR Calcaneus 2+ Views [...] Result Date: 10/26/2021 [id number] Tomography ACCESSION EXAM DATE/TIME PROCEDURE ORDERING PROVIDER [id number] 10/26/2021 11:[address] Head or Brain w/o JUNIE PINEDA ALLISON Contrast CPT code 20512 Reason For Exam (CT Head or Brain w/o Contrast) hydrocephalus. thank you Report CLINICAL INFORMATION: Hydrocephalus. Shunt. 3 mm axial cuts through the head are obtained without IV contrast. The examination is compared to a previous study dated 06/29/2014. FINDINGS: Old SHOE RECONDITIONER shunt tubing is noted bilaterally. The new [...] are clear. IMPRESSION: 1. Old and new SHOE RECONDITIONER shunt tubing. 2. No hydrocephalus. 3. Atrophy [...] Imaging ACCESSION EXAM DATE/TIME PROCEDURE ORDERING PROVIDER [id number] 10/23/2021 11:08 EDT MRI Abdomen w/o Contrast WING SRIVASTAVA CPT code 95832 Reason For Exam (MRI Abdomen w/o Contrast) [...] Result Date: 10/21/2021 [id number] Nuclear Medicine ACCESSION EXAM DATE/TIME PROCEDURE ORDERING PROVIDER [id number] 10/21/2021 07:55 EDT NM Pulmonary Perfusion [id number] MAY BOGGS w/ Vent Aerosol CPT code 15753 A9567 Reason For Exam (NM Pulmonary Perfusion [...] Indices Extremity Bilateral Result Date: 10/22/2021 [facility] --- Ankle Brachial Index Report Patient DO GurpreetB: 1950 Study 10/21/2021 Name: Andrew Gonzalez (71yrs) Date: Age: 71 Account: [id number] Gender: M Loc: 444W BP: Ordering Physician: Shruthi Malik Roof Truss Machine Tender: Rody Cross RDMS, RVT Interpreting Physician: Carina Call --- Location: [facility] --- Indications: Foot wounds. Originally ordered as a full PVR. Ordering FLOORMAN had to modify the order to ABIs [...] supine position. Images were obtained using a [employer] vascular ultrasound machine. --- Arterial pressure indices: [...] BILATERAL VENOUS DUPLEX Result Date: 10/21/2021 [facility] --- Lower Extremity Venous Duplex Report Patient DO GurpreetB: 1950 Study 10/21/2021 Name: Andrew Gonzalez (71yrs) Date: Age: 71 Account: [id number] Gender: M Loc: 444 BP: Ordering Physician: May Cash Roof Truss Machine Tender: Rody Cross RDMS, T Interpreting Physician: Carina Call --- Location: [facility] --- Indications: Bilateral lower leg edema. [...] supine position. Images were obtained using a Radio Rebels vascular ultrasound machine. --- Venous flow and [...] Radiology ACCESSION EXAM DATE/TIME PROCEDURE ORDERING PROVIDER [id number] 10/21/2021 08:16 EDT CR Chest 1 View Frontal [id number] MAY BOGGS CPT code 88613 Reason For Exam (CR Chest 1 View [...] Tomography ACCESSION EXAM DATE/TIME PROCEDURE ORDERING PROVIDER [id number] 10/22/2021 13:[address] Abdomen/Pelvis (No SRIVASTAVA, WING PO, No IV) CPT code 95012 Reason For Exam (CT Abdomen/Pelvis (No PO, [...] Result Date: 10/27/2021 [id number] Imaging ACCESSION EXAM DATE/TIME PROCEDURE ORDERING PROVIDER [id number] 10/27/2021 13:14 EDT MRI Brain w/o Contrast UNASSIGNED, UNASSIGNED CPT code 09192 Reason For Exam (MRI Brain w/o Contrast) stroke Patient has SHOE RECONDITIONER shunt in place, please follow Radiology protocol [...] included. Hospitalist Progress Note 10/28/2021 11:37 AM [phone]: Please page me @ [phone] for patient care issues. [phone]: Please page deckhand engineer for any issues@ night Subjective: Admit Date: [...] abnormality and previous indwelling tubing history of SHOE RECONDITIONER shunt # Bilateral lower extremity wounds-wound care [...] Services This report was created using the [employer] Speaking voice-activated system. Despite prompt dictation and careful editorial review, there may be subtle contextual errors in this report, due to misrecognition of the spoken word. Speech Language Pathology Facility/Department: [facility] MED SURG Dysphagia Treatment [...] and gloves were worn throughout this session. [facility] Anticoagulation Management Service ([facility]) Inpatient Warfarin Consult HPI: Andrew Sifuentes is a 71 y.o. 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 Past Medical History: Diagnosis Date ED (erectile dysfunction) Hemorrhoids Hydrocephalus, adult (HCC) Kidney stone Neuropathy SHOE RECONDITIONER (ventriculoperitoneal) shunt status Patient is newly referred to the [facility] clinic for warfarin management. Pt [...] drug interactions and adjust dose accordingly. 3. [facility] will manage while inpatient and sign off at discharge. Patient resides in a SNF. 4. Will provide warfarin education including [facility] warfarin booklet, if appropriate. Brionna Le, PharmD candidate Josie Gupta RPh, PharmD [facility] Consult Service is available daily [phone]. Please search for covering pharmacist name via [employer] or Groups --> Pharmacy --> Anti-Coagulation Consult Pharmacist (on 3rd page). If no response via [employer], please page [phone]. Follow up b/l foot wounds. No new [...] yr M with PMH obstructive hydrocephalus s/p SHOE RECONDITIONER shunt in 1987, needing multiple revisions and [...] normal limits and both old and new SHOE RECONDITIONER shunt tubing noted. At present patient is awake, follows commands, was able to tell his name, and that he was in hospital but not oriented to time. Per documentation patient had NCSE in May 2021, was on Vimpat, but it was discontinued as there was no evidence of recurrent seizures in july 2021 by Neurology at [facility], per daughter patient was on Dilantin [...] normal limits and both old and new SHOE RECONDITIONER shunt tubing noted -EEG mild to moderate slow, no seizures reported -Labs reviewed -Hydrocephalus management per Neurosurgery. At present patient does not have hydrocephalus on CT head done this admission. [facility] Patient can follow up with Neurosurgery as outpatient and if ends up needing inpatient neurosurgery requirement then may need to be transferred to [facility]. -No clear clinical signs of ventriculitis. Defer evaluation to primary medical team/ID as deemed necessary. -Discussed with daughter in detail on . She was concerned that patient has had h/o seizures, and he has been taken off seizure medication, per note documentation patient had NCSE in May 2021 when he was admitted to [facility]. Per daughter she would want patient [...] interim. This note has been generated using [employer] dictation software. It may contain incorrect words, punctuation's and spellings that were not noted in the review of the note prior to signing. This note has been generated using [employer] dictation software. It may contain incorrect words, [...] LABALBU, AMYLASE, LIPASE in the last 72 hours.@BRIEFLAB([facility]) ABGs: )No results for input(s): [...] Radiology ACCESSION EXAM DATE/TIME PROCEDURE ORDERING PROVIDER [id number] 10/21/2021 15:30 EDT CR Calcaneus 2+ Views [id number] -SHRUTHI MALIK CPT code 57221 Reason For Exam (CR Calcaneus 2+ Views [...] Tomography ACCESSION EXAM DATE/TIME PROCEDURE ORDERING PROVIDER [id number] 10/26/2021 11:[address] Head or Brain w/o JUNIE PINEDA, SARINA Contrast CPT code 64243 Reason For Exam (CT Head or Brain w/o Contrast) hydrocephalus. thank you Report CLINICAL INFORMATION: Hydrocephalus. Shunt. 3 mm axial cuts through the head are obtained without IV contrast. The examination is compared to a previous study dated 06/29/2014. FINDINGS: Old SHOE RECONDITIONER shunt tubing is noted bilaterally. The new [...] are clear. IMPRESSION: 1. Old and new SHOE RECONDITIONER shunt tubing. 2. No hydrocephalus. 3. Atrophy [...] Imaging ACCESSION EXAM DATE/TIME PROCEDURE ORDERING PROVIDER [id number] 10/23/2021 11:08 EDT MRI Abdomen w/o Contrast WING SRIVASTAVA CPT code 45081 Reason For Exam (MRI Abdomen w/o Contrast) [...] Medicine ACCESSION EXAM DATE/TIME PROCEDURE ORDERING PROVIDER [id number] 10/21/2021 07:55 EDT NM Pulmonary Perfusion [id number] -MAY CASH w/ Vent Aerosol CPT code 19150 A9567 Reason For Exam (NM Pulmonary Perfusion [...] Indices Extremity Bilateral Result Date: 10/22/2021 [facility] --- Ankle Brachial Index Report Patient DO GurpreetB: 1950 Study 10/21/2021 Name: Andrew Gonzalez (71yrs) Date: Age: 71 Account: [id number] Gender: M Loc: 444W BP: Ordering Physician: Shruthi Malik Roof Truss Machine Tender: Rody Cross RDMS, RVT Interpreting Physician: Carina Call --- Location: [facility] --- Indications: Foot wounds. Originally ordered as a full PVR. Ordering FLOORMAN had to modify the order to ABIs [...] supine position. Images were obtained using a Radio Rebels vascular ultrasound machine. --- Arterial pressure indices: [...] BILATERAL VENOUS DUPLEX Result Date: 10/21/2021 [facility] --- Lower Extremity Venous Duplex Report Patient DO GurpreetB: 1950 Study 10/21/2021 Name: Andrew Gonzalez (71yr) Date: Age: 71 Account: [id number] Gender: M Loc: 444 BP: Ordering Physician: May Cash Roof Truss Machine Tender: Rody Cross RDMS, RVT Interpreting Physician: Carina Call --- Location: [facility] --- Indications: Bilateral lower leg edema. [...] supine position. Images were obtained using a Radio Rebels vascular ultrasound machine. --- Venous flow and [...] Radiology ACCESSION EXAM DATE/TIME PROCEDURE ORDERING PROVIDER [id number] 10/21/2021 08:16 EDT CR Chest 1 View Frontal [id number] MAY BOGGS CPT code 12418 Reason For Exam (CR Chest 1 View [...] Tomography ACCESSION EXAM DATE/TIME PROCEDURE ORDERING PROVIDER [id number] 10/22/2021 13:[address] Abdomen/Pelvis (No SRIVASTAVA, WING PO, No IV) CPT code 47621 Reason For Exam (CT Abdomen/Pelvis (No PO, [...] Time: 10/22/2021 2:36 pm Signed by: MD VITOR, HUMPHREY Transcribed Date and Time: 10/22/2021 2:37 All questions and concerns were addressed. Katherine Barreto MD Neurology, Vascular Neurology 10/27/2021 12:48 PM Consults Speech Language Pathology Facility/Department: [facility] MED SURG Dysphagia Treatment [...] reactivity and state change, indicative of a [id number]-lr-[id number] diffuse encephalopathy of nonspecific etiology. There are [...] Easy to chew diet/cut up. NEVILLE Jones M.A.CCC/COOK FRUIT Time session ended: 1156 Total session minutes: 23 Images from the original note were not included. Hospitalist Progress Note 10/27/2021 10:40 AM [phone]: Please page me @ [phone] for patient care issues. [phone]: Please page deckhand engineer for any issues@ night Subjective: Admit Date: [...] Services This report was created using the [employer] Naturally Speaking voice-activated system. Despite prompt dictation and careful editorial review, there may be subtle contextual errors in this report, due to misrecognition of the spoken word. [facility] Anticoagulation Management Service ([facility]) Inpatient Warfarin Consult HPI: Andrew Sifuentes is a 71 y.o. 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 Past Medical History: Diagnosis Date ED (erectile dysfunction) Hemorrhoids Hydrocephalus, adult (HCC) Kidney stone Neuropathy SHOE RECONDITIONER (ventriculoperitoneal) shunt status Patient is newly referred to the [facility] clinic for warfarin management. Pt [...] SNF. 4. Will provide warfarin education including [facility] warfarin booklet, if appropriate. Thank you for this consult Brionna Le, PharmD candidate Josie Gutpa [facility], PharmD [facility] Consult Service is available daily [phone]. Please search for covering pharmacist name via [employer] or Groups --> Pharmacy --> Anti-Coagulation Consult Pharmacist (on 3rd page). If no response via [employer], please page [phone]. I cleaned under patient's finger nails with [...] if concern Hydrocephalus Chronic WOODARD's - Revised SHOE RECONDITIONER shunt - daughter requested that pt have [...] then may need to be transferred to [facility]. Seizure history, unspecified - daughter [...] get report from nursing. Continue wound care. [facility] Anticoagulation Management Service ([facility]) Inpatient Warfarin Consult HPI: Andrew Sifuentes is a 71 y.o. 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 Past Medical History: Diagnosis Date ED (erectile dysfunction) Hemorrhoids Hydrocephalus, adult (HCC) Kidney stone Neuropathy SHOE RECONDITIONER (ventriculoperitoneal) shunt status Patient is newly referred to the [facility] clinic for warfarin management. Pt [...] PharmD [facility] Consult Service is available daily [phone]. Please search for covering pharmacist name via [employer] or Groups --> Pharmacy --> Anti-Coagulation Consult Pharmacist (on 3rd page). If no response via [employer], please page [phone]. Moon daughter stated that any of patient's family can call and obtain an update on patient's status. Speech Language Pathology Facility/Department: [facility] MED SURG CLINICAL BEDSIDE [...] a small bore straw. Additionally discussed with COOK FRUIT, agreeable to assess tomorrow. Recent Chest Xray/CT [...] and liquids between bites. Treatment Plan Requires COOK FRUIT Intervention: Yes Duration of Treatment: 2 weeks [...] Education Response: Verbalizes understanding;Needs reinforcement Therapy Time COOK FRUIT Individual Minutes Time In: 826 Time Out: 53 Minutes: 26 NEVILLE Jones 10/26/2021 9:20 AM Comprehensive Nutrition Assessment Type and Reason for Visit: Initial (DT referral for wounds) Nutrition Recommendations/Plan: 1. Recommend to continue: Easy to Chew diet with Thin Liquids as currently ordered and safe for patient to participate in. Discussed with: RN, FLOORMAN, and COOK FRUIT. COOK FRUIT to assess tomorrow, best diet and liquid [...] & deltoids),Scapula (trapezius) Fluid Accumulation: Mild Extremities Television Service Engineer Strength: Not Performed Nutrition Assessment: 71 [...] a small bore straw. Additionally discussed with COOK FRUIT, agreeable to assess tomorrow. Nutrition Related Findings: [...] Anthropometric Measures: Height: 5' 7.01 (170.2 cm) [place] Body Weight (IBW): 148 lbs (67 kg) [...] On: Kcal/kg Weight Used for Energy Requirements: [place] (67.15 kg) Energy (kcal/day): 3757-9738 (27-32 kcal/kg IBW) --> increased need d/t wounds Weight Used for Protein Requirements: [place] (67.15 kg) Protein (g/day): 67-101 (1.0-1.5 g protein/kg IBW) Method Used for Fluid Requirements: Other (Comment) Fluid (ml/day): 1678-8260 mL daily or per MD Nutrition Diagnosis: [...] Plan of Care discussed with: Patient, RN, FLOORMAN Edwin Goals: Goals: other (specify) Specify Other [...] to determine Puja Almanza RD, LD Contact: *[phone] Or Via [employer] Hematology/Oncology Attending Progress Note SUBJECTIVE: Patient seen [...] IRON, TIBC, FERRITIN No results found for: [id number] No results found for: FOLATE PT 15.6 INR 1.5 CA 19 - 9 is 17 Protein S 138% Protein C 186% ASSESSMENT AND PLAN GI input appreciated. Patient continues with subtherapeutic INR. GI input appreciated. Discussed with patient's aadc plans staff officer. Will continue monitor. Total visit time > 35 minutes. [facility] Anticoagulation Management Service ([facility]) Inpatient Warfarin Consult HPI: Andrew Sifuentes is a 71 y.o. 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 Past Medical History: Diagnosis Date ED (erectile dysfunction) Hemorrhoids Hydrocephalus, adult (HCC) Kidney stone Neuropathy SHOE RECONDITIONER (ventriculoperitoneal) shunt status Patient is newly referred to the [facility] clinic for warfarin management. Pt [...] drug interactions and adjust dose accordingly. 3. [facility] will manage while inpatient and sign off at discharge. Patient resides in a SNF. 4. Will provide warfarin education including [facility] warfarin booklet, if appropriate. Thank you for this consult Brionna Le, PharmD candidate Josie Gupta RPh, PharmD [facility] Consult Service is available daily [phone]. Please search for covering pharmacist name via [employer] or Groups --> Pharmacy --> Anti-Coagulation Consult Pharmacist (on 3rd page). If no response via [employer], please page [phone]. Progress Note 10/25/2021 9:36 AM Name: Andrew [...] if concern Hydrocephalus Chronic WOODARD's - Revised SHOE RECONDITIONER shunt DC planning - 10/25/21: INR subtherapeutic, [...] if concern Hydrocephalus Chronic WOODARD's - Revised SHOE RECONDITIONER shunt DC planning - Can be DC'd back to ECF once MRI done if no acute findings, MRI is done, defer to hem / onc on plan for that, awaiting chest PA with fluoro Patient seen and chart reviewed. Consult dictated. Will ask GI to assess concerning the etiology of liver lesions. Will continue to monitor. [facility] Anticoagulation Management Service ([facility]) Inpatient Warfarin Consult HPI: Andrew R Gurpreet is a 71 y.o. 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 Past Medical History: Diagnosis Date ED (erectile dysfunction) Hemorrhoids Hydrocephalus, adult (HCC) Kidney stone Neuropathy SHOE RECONDITIONER (ventriculoperitoneal) shunt status Patient is newly referred to the [facility] clinic for warfarin management. Pt [...] drug interactions and adjust dose accordingly. 3. [facility] will manage while inpatient and sign off at discharge. Patient resides in a SNF. 4. Will provide warfarin education including [facility] warfarin booklet, if appropriate. Thank you for this consult Brionna Le, PharmD candidate Josie Gupta RPh, PharmD [facility] Consult Service is available daily [phone]. Please search for covering pharmacist name via [employer] or Groups --> Pharmacy --> Anti-Coagulation Consult Pharmacist (on 3rd page). If no response via [employer], please page [phone]. Follow up foot wounds Patient is more alert this morning. Waffle boots are on Ulcer left heel ulcer right foot Foot drop PE, chart reviewed. Patient relates that he does not walk at home. c ontinue wound care. Images from the original note were not included. Hospitalist Progress Note 10/23/2021 1:47 PM [phone]: Please page me ([phone]) or perfect serve me for patient care issues. [phone]: Please page IMS night Hospitalist for any [...] if concern Hydrocephalus Chronic WOODARD's - Revised SHOE RECONDITIONER shunt DC planning - Can be DC'd [...] Hemorrhoids Hydrocephalus, adult (HCC) Kidney stone Neuropathy SHOE RECONDITIONER (ventriculoperitoneal) shunt status Medications: sodium chloride warfarin [...] of Hospitalist Medicine Inpatient Medical Services PAGER: [phone] Nutrition rescreen completed. Pt referred to RD for foot ulcers. Occupational Therapy Facility/Department: [facility] MED SURG Occupational Therapy Initial Assessment Name: Andrew Sifuentes : 1950 Date of Service: 10/23/2021 OT eval and treat orders received. Chart reviewed. Per notes pt from [facility], is Boaz lift at baseline, non-ambulatory, and requires assist for all ADLs. Will d/c OT orders. Elizabeth Gutierrez OT Physical Therapy Facility/Department: [facility] MED SURG Physical Therapy Initial Assessment Name: Andrew Sifuentes : 1950 Date of Service: 10/23/2021 PT eval and treat orders received. Chart reviewed. Per notes pt from [facility], is Boaz lift at baseline, non-ambulatory. Will d/c PT orders. Lloyd Silva PT [facility] Anticoagulation Management Service ([facility]) Inpatient Warfarin Consult HPI: Andrew Sifuentes is a 71 y.o. 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 Past Medical History: Diagnosis Date ED (erectile dysfunction) Hemorrhoids Hydrocephalus, adult (HCC) Kidney stone Neuropathy SHOE RECONDITIONER (ventriculoperitoneal) shunt status Patient is newly referred to the [facility] clinic for warfarin management. Pt [...] PharmD [facility] Consult Service is available daily [phone]. Please search for covering pharmacist name via [employer] or Groups --> Pharmacy --> Anti-Coagulation Consult Pharmacist (on 3rd page). If no response via [employer], please page [phone]. Department of Podiatry Attending Consult Note Reason for Consult: Wound care Requesting Physician: MD Oksana CHIEF COMPLAINT: Foot wounds HISTORY OF PRESENT ILLNESS: The patient is a 71 y.o. male with b/l foot wounds. Patient is awake , but not answering questions. 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 Will follow . Thank you. [facility] Respiratory Care Department Progress Note As [...] included. Hospitalist Progress Note 10/22/2021 6:33 AM [phone]: Please page me ([phone]) or perfect serve me for patient care issues. [phone]: Please page IMS night Hospitalist for any issues. Subjective: Admit Date: 10/21/2021 PCP: MONIKA STALEY MD Room#: [id number]/6402 Admitting Synopsis: 71 y/o male presents from [...] consider MRI if concern Hydrocephalus - Revised SHOE RECONDITIONER shunt Interval History: No overnight issues. 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 Hospitalist Progress Note 10/21/2021 5:31 PM [phone]: Please page me ([phone]) or perfect serve me for patient care issues. [phone]: Please page IMS night Hospitalist for any issues. Subjective: Admit Date: 10/21/2021 PCP: MONIKA STALEY MD Room#: [phone] Admitting Synopsis: 71 y/o male presents from [...] Will need chronic OAC Hydrocephalus - Revised SHOE RECONDITIONER shunt Interval History: No overnight issues. 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 Her phone number is [phone] to speak with whomever was attempting to reach out to her. documented in this encounter KALA Zavala Phone: 10-17-2021 Miscellaneous Notes Mr. Sifuentes missed his hospital stay follow-up appointment w. Dr. Lim today. Called to Reschedule. Could not get through. Subscriber you have dialed not in service - was the automated voice mail. Unable to leave . No other phone# available. Ramya Negro Utility Worker Driver [facility] documented in this encounter [facility] 08-19-2021 Note [facility] 08-19-2021 Note [facility] 08-18-2021 Note [facility] 08-18-2021 Note [facility] 08-17-2021 Note [facility] 08-17-2021 Note [facility] 08-16-2021 Note [facility] 08-16-2021 Note HNO ID: [id number] Author: Katt Kelsey DO Service: Hospital Medicine Author Type: Physician Type: Plan of Care Filed: 08/16/2021 12:26 PM Note Text: Spoke with RN that line is a PICC. Katt Kelsey DO 08/16/2021 12:26 PM [facility] 08-16-2021 Note [facility] 08-16-2021 Note [facility] 08-15-2021 Note [facility] 08-15-2021 Note [facility] 08-15-2021 Note [facility] 08-14-2021 Note [facility] 08-14-2021 Note [facility] 08-13-2021 Note [facility] 08-13-2021 Note [facility] 08-13-2021 Note [facility] 08-13-2021 Note HNO ID: [id number] Author: Interface Note Service: ? Author Type: ? Type: Progress Notes Filed: 08/13/2021 3:10 AM Note Text: Epic Scheduled Downtime: 08/13/2021 1:08:47 AM to 08/13/2021 2:53:47 AM [facility] 08-12-2021 Note [facility] 08-12-2021 Note [facility] 08-12-2021 Note [facility] 08-11-2021 Note [facility] 08-11-2021 Note [facility] 08-11-2021 Note [facility] 08-11-2021 Note [facility] 08-11-2021 Note [facility] 08-11-2021 Note [facility] 08-10-2021 Note [facility] 08-10-2021 Note [facility] 08-10-2021 Note [facility] 08-10-2021 Note [facility] 08-09-2021 Note HNO ID: [id number] Author: Shannon Brooks RN Service: ? Author Type: Registered Nurse Type: Nursing Progress Note Filed: 08/09/2021 7:33 PM Note Text: Report called to unit [facility] 08-09-2021 Note [facility] 08-09-2021 Note [facility] 08-09-2021 Note [facility] 08-08-2021 Note [facility] 08-08-2021 Note [facility] 08-08-2021 Note [facility] 08-07-2021 Note [facility] 08-07-2021 Note [facility] 08[facility]07-2021 Note [facility] 08[facility]07-2021 Note [facility] 08-07-2021 Note [facility] 08-06-2021 Note [facility] 08[facility]06-2021 Note [facility] 08-06-2021 Note [facility] 08[facility]05-2021 Note [facility] 08-05-2021 Note [facility] [facility] 08-[facility]-2021 [facility] 08-04-2021 [facility] 08-04-2021 [facility] 08[facility]04-2021 [facility] 08-03-2021 [facility] 08-03-2021 [facility] 08[facility]03-2021 [facility] 08-02-2021 [facility] 08-02-2021 [facility] 08-02-2021 [facility] 08-01-2021 [facility] 08-01-2021 [facility] 08[facility]01-2021 [facility] 08-01-2021 [facility] 07-31-2021 [facility] 07[facility]31-2021 [facility] 07-30-2021 [facility] 07[facility]30-2021 [facility] 07[facility]30-2021 [facility] 07-29-2021 [facility] 07-29-2021 [facility] 07-29-2021 [facility] 07-28-2021 [facility] 07-28-2021 [facility] 07[facility]28-2021 [facility] 07-27-2021 [facility] 07-27-2021 [facility] 07[facility]27-2021 [facility] 07-26-2021 [facility] 07-26-2021 [facility] 07-26-2021 [facility] 07-26-2021 [facility] 07[facility]26-2021 [facility] 07-25-2021 [facility] 07-25-2021 [facility] 07[facility]25-2021 [facility] 07[facility]25-2021 [facility] 07-24-2021 [facility] 07-24-2021 [facility] 07-24-2021 [facility] 07-23-2021 [facility] 07-23-2021 [facility] 07[facility]23-2021 [facility] 07-23-2021 [facility] 07-23-2021 [facility] 07[facility]22-2021 [facility] 07-22-2021 [facility] 07-22-2021 [facility] 07-21-2021 [facility] 07-21-2021 [facility] 07-21-2021 [facility] 07-21-2021 History of [...] history of fever, elevated WBC, RP hematoma SHOE RECONDITIONER shunt tip grew anaerobic gram positive cocci 06/08/2021 PLAN: SHOE RECONDITIONER shunt tip sent to [facility] main, awaiting cx Continue Meropenem [...] Hydrocephalus - repeat CTH 2 stable - 2 VA shunt removal and VPS shunt placed- EVD removed 06/10 PLAN: - following CSF studies; 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 for ART COORDINATOR infection at this time - ID following- Continue antibiotics: Meropenem -CSF leak from EVD site, appreciate NSGY recs> stat repeat CTH on 06/07 d/t concern for CSF leak, cephalematoma, CTH unremarkable -Tolerating TF - SBT WTE - PICC line placed documented as of this encounter (statuses as of 10/17/2021) [facility]03-17-2022 [facility]03-16-2022 [facility]03-16-2022 [facility]03-16-2022 Note [facility]03-16-2022 [facility] 07-19-2021 [facility]03-15-2022 [facility]03-15-2022 [facility]03-14-2022 [facility]03-14-2022 [facility]03-13-2022 [facility]03-13-2022 [facility]03-12-2022 Note [facility]03-12-2022 [facility] 07-15-2021 [facility]03-11-2022 [facility]03-10-2022 [facility]03-10-2022 [facility]03-10-2022 [facility]03-09-2022 [facility]03-09-2022 [facility]03-09-2022 Note [facility]03-09-2022 [facility] 07-12-2021 [facility]03-08-2022 [facility]03-07-2022 [facility]03-07-2022 [facility]03-07-2022 [facility]03-07-2022 [facility]03-06-2022 [facility]03-06-2022 Note [facility]03-05-2022 [facility] 07-09-2021 [facility]03-05-2022 [facility]03-05-2022 [facility]03-05-2022 NoteHNO ID: [id number] Author: Lizette Valderrama RN Service: Nursing Author Type: Registered Nurse Type: Nursing Progress Note Filed: 07/09/2021 1:41 AM Note Text: Report called to [facility]03-04-2022 NoteHNO ID: [id number] Author: Lizette Valderrama RN Service: Nursing Author Type: Registered Nurse Type: Nursing Progress Note Filed: 07/08/2021 8:57 PM Note Text: [address]49 back to PACU [address] [place], [place] [address]803-04-2022 NoteHNO ID: [id number] Author: Sukhi Chery APRN.CNP Service: ? Author Type: Nurse Practitioner Type: Progress Notes Filed: 07/09/2021 6:46 PM Note Text: Connected Care Unit Progress Note Patient Name: Andrew Sifuentes Patient Facility: [facility] Admit Date 06/28/2021 Level of Care: Skilled [...] Dept Phone 07/21/2021 11:00 AM [facility] [phone] HPI: (Per Dr. Beltran) Andrew Sifuentes is being seen today for fdc facility (SNF) admission AND management of weakness, tube feed, infected retroperitoneal infection and seizure. ? This is a 71 year old male who presents from [facility] with primary admitting diagnosis of [...] CT brain concerning for hydrocephalus. Tip of SHOE RECONDITIONER shunt was found to be in the [...] to respond. Ordered to transfer to [facility] ED for evaluation of neurological and pulmonary [...] in co (more content not included)... [facility]03-04-2022 [facility]03-04-2022 [facility]03-02-2022 NoteHNO ID: [id number] Author: Sukhi Chery APRN.CNP Service: ? Author Type: Nurse Practitioner Type: Progress Notes Filed: 07/09/2021 6:20 PM Note Text: Connected Care Unit Progress Note Patient Name: Andrew Sifuentes Patient Facility: [facility] Admit Date 06/28/2021 Level of Care: Skilled [...] Provider Location Dept Phone 07/21/2021 11:00 AM [facility] [phone] HPI: (Per Dr. Beltran) Andrew Sifuentes is being seen today for fdc facility (SNF) admission AND management of weakness, tube feed, infected retroperitoneal infection and seizure. ? This is a 71 year old male who presents from [facility] with primary admitting diagnosis of [...] CT brain concerning for hydrocephalus. Tip of SHOE RECONDITIONER shunt was found to be in the [...] Oropharynx is clear. (more content not included)...[facility]02-28-2022 NoteHNO ID: [id number] Author: Sukhi Chery APRN.CNP Service: ? Author Type: Nurse Practitioner Type: Progress Notes Filed: 07/09/2021 6:07 PM Note Text: Connected Care Unit Progress Note Patient Name: Andrew Sifuentes Patient Facility: [facility] Admit Date 06/28/2021 Level of Care: Skilled [...] but nursing notes it was drawn by workflow developer as vancomycin was being infused; reordered trough - PICC Line Intact - No fevers or chills per patient or staff (R53.81) Debility - Certify therapies - Maintain high falls risk precautions - pt/staff verbalize understanding validated via teach back - Monitor safety awareness Appointments for Next 60 Days Date Time Provider Location Dept Phone 07/21/2021 11:00 AM [facility] [phone] HPI: (Per Dr. Beltran) Andrew Sifuentes is being seen today for fdc facility (SNF) admission AND management of weakness, tube feed, infected retroperitoneal infection and seizure. ? This is a 71 year old male who presents from [facility] with primary admitting diagnosis of [...] CT brain concerning for hydrocephalus. Tip of SHOE RECONDITIONER shunt was found to be in the [...] to facility records. OBJECTIVE: Labs/diagnostics: 07/04/2021 Glucose=91 Ai=691 K=3.8 Ce=991 CO2=24 BUN=14 Creatinine=0.5 TYG=031 Ca=9.0 Protein,Total=6.7 Albumin=3.6 CrhYtfi=118 AST=15 ALT=21 Bilirubin,Totall=0.5 WBC=10.7 RBC=4.04 Hgb=10.9 Hct=35.3 Xdemrjzy=781 VancomycinTr (more content not included)...[facility]02-24-2022 NoteHNO ID: [id number] Author: Sukhi Chery APRN.CNP Service: ? Author Type: Nurse Practitioner Type: Progress Notes Filed: 07/09/2021 5:43 PM Note Text: Connected Care Unit Progress Note Patient Name: Andrew Sifuentes Patient Facility: [facility] Admit Date 06/28/2021 Level of Care: Skilled [...] Dept Phone 07/21/2021 11:00 AM [facility] [phone] HPI: (Per Dr. Beltran) Andrew Sifuentes is being seen today for fdc facility (SNF) admission AND management of weakness, tube feed, infected retroperitoneal infection and seizure. ? This is a 71 year old male who presents from [facility] with primary admitting diagnosis of [...] CT brain concerning for hydrocephalus. Tip of SHOE RECONDITIONER shunt was found to be in the [...] to facility records. OBJECTIVE: Labs/diagnostics: 07/01/2021 Glucose=83 Iz=372 K=4.1 Rw=702 CO2=27 BUN=22 Creatinine=0.6 JJN=690 Ca=8.7 WBC=10.8 RBC=3.40 Hgb=9.3 Hct=29.9 Zmyahscm=789 Vital Signs: BP 128/80 Pulse 77 Temp 36.7 ?C (98 ?F) Resp 20 Ht 182.9 cm (6') Wt 113 kg (249 lb 3.2 oz) SpO2 96% BMI 33.80 kg/m? Physical Exam: Physical Exam Vitals reviewed. Constitutional: General: He is not in acute distress. (more content not included)...[facility]02-21-2022 [facility]02-21-2022 Note [facility]02-20-2022 [facility] 06-26-2021 [facility]02-19-2022 [facility]02-19-2022 [facility]02-18-2022 [facility]02-18-2022 [facility]02-18-2022 [facility]02-17-2022 [facility]02-17-2022 Note [facility]02-17-2022 [facility] 06-22-2021 NoteHNO ID: [id number] Author: Xiomy England RN Service: Nursing Author Type: Registered Nurse Type: Nursing Progress Note Filed: 06/22/2021 7:22 PM Note Text: RT contacted as pt has wheezing auscultated and same auditory. For prn Treatment.[facility]02-16-2022 [facility]02-16-2022 [facility]02-16-2022 [facility]02-16-2022 [facility]02-16-2022 [facility]02[facility]15-2022 [facility]02-15-2022 Note [facility]02-15-2022 [facility] 06-21-2021 [facility]02-14-2022 [facility]02-14-2022 [facility]02-14-2022 [facility]02-14-2022 [facility]02[facility]14-2022 [facility]02-13-2022 [facility]02-13-2022 Note [facility]02-13-2022 [facility] 06-19-2021 [facility]02-13-2022 [facility]02-12-2022 [facility]02-12-2022 [facility]02-12-2022 [facility]02-12-2022 [facility]02-12-2022 [facility]02-12-2022 Note [facility]02-12-2022 NoteHNO ID: [id number] Author: Interface Note Service: ? Author Type: ? Type: Progress Notes Filed: 06/18/2021 3:10 AM Note Text: Epic Scheduled Downtime: 06/18/2021 1:00:00 AM to 06/18/2021 2:27:00 [facility]02-11-2022 Note [facility]02-11-2022 [facility] 06-17-2021 [facility]02-11-2022 [facility]02-11-2022 [facility]02-10-2022 [facility]02-10-2022 [facility]02[facility]10-2022 [facility]02-10-2022 [facility]02-10-2022 Note [facility]02-10-2022 [facility] 06-15-2021 [facility]02-09-2022 NoteHNO ID: [id number] Author: Lamonte Kline DO Service: Neurology ICU Author Type: Resident Type: Plan of Care Filed: 06/15/2021 6:21 PM Note Text: Patient's daughter Melissa updated on plan of care and critical condition, all questions answered.[facility]02-09-2022 [facility]02-09-2022 [facility]02-09-2022 [facility]02-09-2022 [facility]02-09-2022 Note [facility]02-09-2022 [facility] 06-15-2021 [facility]02-08-2022 [facility]02-08-2022 [facility]02-08-2022 [facility]02-08-2022 [facility]02-07-2022 [facility]02[facility]07-2022 [facility]02-07-2022 Note [facility]02-07-2022 [facility] 06-12-2021 [facility]02-06-2022 [facility]02-06-2022 [facility]02-05-2022 [facility]02-05-2022 [facility]02-04-2022 [facility]02-04-2022 [facility]02-04-2022 Note [facility]02-04-2022 [facility] 06-09-2021 [facility]02-03-2022 [facility]02-03-2022 [facility]02-03-2022 [facility]02-02-2022 [facility]02-02-2022 NoteHNO ID: [id number] Author: Luis Diaz RN Service: ? Author Type: Registered Nurse Type: Nursing Progress Note Filed: 06/08/2021 9:23 AM Note Text: Patient off the floor to OR at this time.[facility]02-02-2022 [facility]02-02-2022 [facility] 06-08-2021 NoteHNO ID: [id number] Author: Eloise Samuel RN Service: ? Author Type: Registered Nurse Type: Nursing Progress Note Filed: 06/08/2021 12:46 AM Note Text: Dr. Brito notified of changes throughout shift. No new orders at [facility]02[facility]22 [facility] 06-07-2021 NoteHNO ID: [id number] Author: Eloise Samuel RN Service: ? Author Type: Registered Nurse Type: Nursing Progress Note Filed: 06/07/2021 8:01 PM Note Text: Neuro surg CORONER FORENSIC TECHNICIAN notified of downward deviation of pupils. No new orders at this time.[facility]02-01-2022 [facility]02-01-2022 [facility]02-01-2022 [facility]02-01-2022 [facility]01-31-2022 [facility]01-31-2022 [facility]01-31-2022 Note [facility]01-31-2022 [facility] 06-05-2021 [facility]01-30-2022 [facility]01-30-2022 [facility]01-29-2022 [facility]01-29-2022 NoteHNO ID: [id number] Author: Jermaine Miller PA-C Service: Neurosurgery Author Type: Physician Environmental Marketing Representative Type: Plan of Care Filed: 06/04/2021 1:59 PM Note Text: Discussed with Dr. Charles CT brain results. At this time, continue with EVD at 5 [facility]01-29-2022 [facility] 06-04-2021 [facility]01-28-2022 [facility]01-28-2022 NoteHNO ID: [id number] Author: Mauricio Frank DO Service: Neurology ICU Author Type: Physician Type: Plan of Care Filed: 06/03/2021 2:38 PM Note Text: I spoke with Melissa and updated her over the phone. Mauricio Frank, [facility]01-28-2022 [facility]01-28-2022 [facility]01-27-2022 [facility]01-27-2022 [facility]01-27-2022 Note [facility]01-26-2022 [facility] 06-01-2021 [facility]01-26-2022 [facility]01-26-2022 [facility]01-26-2022 [facility]01-25-2022 [facility]01-25-2022 [facility]01-25-2022 [facility]01-25-2022 Note [facility]01-25-2022 [facility] 05-31-2021 [facility] Leg swelling- Primary Swelling of limb Acute deep vein thrombosis (DVT) of proximal vein of lower extremity, unspecified laterality (HCC) DVT, lower extremity, recurrent, unspecified laterality (HCC) Moderate malnutrition (HCC) Malnutrition of moderate degree History of seizures Personal history of other disorders of nervous system and sense organs documented in this encounter [facility] Work Phone: Evaluation noteNo assessment information available [facility] Work Phone: Evaluation note* Diagnosis Other fatigue- Primary documented in this encounter [facility] Work Phone: Evaluation note* Diagnosis Heel ulceration, left, with unspecified severity (HCC)- Primary documented in this encounter [facility] Work Phone: Evaluation note* Diagnosis Fall, initial encounter- Primary Anticoagulated Encounter for long-term (current) use of anticoagulants documented in this encounter [facility] Work Phone: Evaluation note* Diagnosis Left flank pain- Primary Abdominal pain, unspecified site Calculus of ureter Disease of prostate Unspecified disorder of prostate BPH with urinary obstruction Hypertrophy of prostate with urinary obstruction and other lower urinary tract symptoms (LUTS) documented in this encounter [facility] HealthEvaluation note* Diagnosis Left flank pain Abdominal pain, unspecified site Calculus of ureter documented in this encounter [facility]* Diagnosis Left flank pain- Primary Abdominal pain, unspecified site BPH with urinary obstruction Hypertrophy of prostate with urinary obstruction and other lower urinary tract symptoms (LUTS) History of kidney stones documented in this encounter [facility] HealthInstructions* Name Dates Details Instructions not documented [id number] Work Phone: Instructions* Name Dates Details Instructions not documented [id number] [address] [place] Work Phone: Reason for referral (narrative)No reason for referral information availableK[facility] Work Phone: Advance Directives No Advanced Directives Records FoundDocuments on File Type Date Recorded Patient Environmental Sustainability Manager Expl anation Advance Directives and Living Will Power of Digital Sales Assistant Documents on File Type Date Recorded Patient Environmental Sustainability Manager Expl anation Advance Directive(s) 06/02/2021 2:45 [...] Maker Relationship: 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 Adult Children (senior patient account representative) Documents on File Type Date Recorded Patient Environmental Sustainability Manager Expl anation ACP-Advance Directive ACP-Power of Digital Sales Assistant Latest Code Status on File Code Status Date Activated Date Inactivated Comments Full Code 10/21/2021 4:09 AM Healthcare Agents on File Name Relationship Healthcare Agent Relationshi p Communication Melissa Gurpreet Child Primary Decision Maker deann Gurpreet Child Secondary Decision Maker Documents on File Type Date Recorded Patient Environmental Sustainability Manager Expl anation ACP-Advance Directive ACP-Power of Digital Sales Assistant ACP-Do Not Resuscitate 11/01/2021 7:03 AM Latest Code Status on File Code Status Date Activated Date Inactivated Comments Full Code 10/21/2021 4:09 AM 10/29/2021 7:25 PM Healthcare Agents on File Name Relationship Healthcare Agent Relationshi p Communication Melissa Gurpreet Child Primary Decision Maker deann Gurpreet Child Secondary Decision Maker Documents on File Type Date Recorded Patient Environmental Sustainability Manager Expl anation ACP-Do Not Resuscitate 11/03/2021 10:15 AM ACP-Do Not Resuscitate 11/01/2021 7:03 AM Healthcare Agents on File Name Relationship Healthcare Agent Relationshi p Communication Melissa Gurpreet Child Primary Decision Maker deann Gurpreet Child Secondary Decision Maker Documents on File Type Date Recorded Patient Environmental Sustainability Manager Expl anation ACP-Do Not Resuscitate 11/03/2021 [...] on File Type Date Recorded Patient Environmental Sustainability Manager Expl anation DNR (Do Not Resuscitate) 10/31/2021 DNR (Do Not Resuscitate) 10/21/2021 Documents on File Type Date Recorded Patient Environmental Sustainability Manager Expl anation DNR (Do Not Resuscitate) [...] WORK LABWORK Chief Complaint LAB WORK LABWORK SKILLED NURSING LAB WORK SKILLED NURSING LABWORK Chief Complaint LAB WORK LABWORK SKILLED NURSING LAB WORK SKILLED NURSING LABWORK LABWORK LABWORK SKILLED NURSING LAB WORK SKILLED NURSING LABWORK SKILLED NURSING LAB WORK LABWORK SKILLED NURSING LAB WORK LABWORK SKILLED NURSING LABWORK Chief Complaint LAB WORK LABWORK SKILLED NURSING LAB WORK SKILLED NURSING LABWORK LABWORK LABWORK SKILLED NURSING LAB WORK SKILLED NURSING LABWORK SKILLED NURSING LAB WORK LABWORK SKILLED NURSING LAB WORK LABWORK SKILLED NURSING LABWORK SKILLED NURSING LABWORK LABWORK Chief Complaint LAB WORK LABWORK SKILLED NURSING LAB WORK SKILLED NURSING LABWORK LABWORK LABWORK SKILLED NURSING LAB WORK SKILLED NURSING LABWORK SKILLED NURSING LAB WORK LABWORK SKILLED NURSING LAB WORK LABWORK SKILLED NURSING LABWORK SKILLED NURSING LABWORK LABWORK SKILLED NURSING LAB WORK Chief Complaint LABWORK SKILLED NURSING LAB WORK SKILLED NURSING LABWORK LABWORK LABWORK SKILLED NURSING LAB WORK SKILLED NURSING LABWORK SKILLED NURSING LAB WORK LABWORK SKILLED NURSING LAB WORK LABWORK SKILLED NURSING LABWORK SKILLED NURSING LABWORK LABWORK LABWORK SKILLED NURSING LAB WORK Chief Complaint LABWORK SKILLED NURSING LAB WORK SKILLED NURSING LABWORK LABWORK LABWORK SKILLED NURSING LAB WORK SKILLED NURSING LABWORK SKILLED NURSING LAB WORK LABWORK SKILLED NURSING LAB WORK LABWORK SKILLED NURSING LABWORK SKILLED NURSING LABWORK LABWORK LABWORK SKILLED NURSING LAB WORK LABWORK SKILLED NURSING LABWORK SKILLED NURSING LAB WORK SKILLED NURSING LABWORK Chief Complaint SKILLED NURSING LAB WOR K SKILLED NURSING LABWORK LABWORK LABWORK SKILLED NURSING LAB WORK SKILLED NURSING LABWORK SKILLED NURSING LAB WORK LABWORK SKILLED NURSING LAB WORK LABWORK SKILLED NURSING LABWORK SKILLED NURSING LABWORK LABWORK LABWORK SKILLED NURSING LAB WORK LABWORK SKILLED NURSING LABWORK SKILLED NURSING LAB WORK SKILLED NURSING LABWORK SKILLED NURSING LAB WORK Chief Complaint SKILLED NURSING LABWORK LABWORK LABWORK SKILLED NURSING LAB WORK SKILLED NURSING LABWORK SKILLED NURSING LAB WORK LABWORK SKILLED NURSING LAB WORK LABWORK SKILLED NURSING LABWORK SKILLED NURSING LABWORK LABWORK LABWORK SKILLED NURSING LAB WORK LABWORK SKILLED NURSING LABWORK SKILLED NURSING LAB WORK SKILLED NURSING LABWORK LABWORK SKILLED NURSING LAB WORK Chief Complaint SKILLED NURSING LAB WOR K SKILLED NURSING LABWORK SKILLED NURSING LAB WORK LABWORK SKILLED NURSING LAB WORK LABWORK SKILLED NURSING LABWORK SKILLED NURSING LABWORK LABWORK LABWORK SKILLED NURSING LAB WORK LABWORK SKILLED NURSING LABWORK SKILLED NURSING LAB WORK SKILLED NURSING LABWORK LABWORK LABWORK SKILLED NURSING LAB WORK SKILLED NURSING PATIENT SKILLED NURSING LABWORK SKILLED NURSING LABWORK Chief Complaint LABWORK SKILLED NURSING LAB WORK LABWORK SKILLED NURSING LABWORK SKILLED NURSING LABWORK LABWORK LABWORK SKILLED NURSING LAB WORK LABWORK SKILLED NURSING LABWORK SKILLED NURSING LAB WORK SKILLED NURSING LABWORK LABWORK LABWORK SKILLED NURSING LAB WORK SKILLED NURSING PATIENT SKILLED NURSING LABWORK SKILLED NURSING LABWORK SKILLED NURSING LAB WORK Chief Complaint LABWORK SKILLED NURSING LABWORK SKILLED NURSING LABWORK LABWORK LABWORK SKILLED NURSING LAB WORK LABWORK SKILLED NURSING LABWORK SKILLED NURSING LAB WORK SKILLED NURSING LABWORK LABWORK LABWORK SKILLED NURSING LAB WORK SKILLED NURSING PATIENT SKILLED NURSING LABWORK SKILLED NURSING LABWORK SKILLED NURSING LAB WORK SKILLED NURSING LAB WORK SKILLED NURSING LAB WORK Chief Complaint LABWORK LABWORK SKILLED NURSING LAB WORK SKILLED NURSING PATIENT SKILLED NURSING LABWORK SKILLED NURSING LABWORK SKILLED NURSING LAB WORK SKILLED NURSING LAB WORK SKILLED NURSING LAB WORK SKILLED NURSING LABWORK SKILLED NURSING LABWORK LABWORK SKILLED NURSING LAB WORK LABWORK Chief Complaint SKILLED NURSING LAB WOR K SKILLED NURSING PATIENT SKILLED NURSING LABWORK SKILLED NURSING LABWORK SKILLED NURSING LAB WORK SKILLED NURSING LAB WORK SKILLED NURSING LAB WORK SKILLED NURSING LABWORK SKILLED NURSING LABWORK LABWORK SKILLED NURSING LAB WORK LABWORK SKILLED NURSING LABWORK Chief Complaint SKILLED NURSING PATIENT SKILLED NURSING LABWORK SKILLED NURSING LABWORK SKILLED NURSING LAB WORK SKILLED NURSING LAB WORK SKILLED NURSING LAB WORK SKILLED NURSING LABWORK SKILLED NURSING LABWORK LABWORK SKILLED NURSING LAB WORK LABWORK SKILLED NURSING LABWORK SKILLED NURSING LABWORK Chief Complaint SKILLED NURSING LABWORK SKILLED NURSING LAB WORK SKILLED NURSING LAB WORK SKILLED NURSING LAB WORK SKILLED NURSING LABWORK SKILLED NURSING LABWORK LABWORK SKILLED NURSING LAB WORK LABWORK SKILLED NURSING LABWORK SKILLED NURSING LABWORK SKILLED NURSING LABWORK Chief Complaint SKILLED NURSING LABWORK SKILLED NURSING LAB WORK SKILLED NURSING LAB WORK SKILLED NURSING LAB WORK SKILLED NURSING LABWORK SKILLED NURSING LABWORK LABWORK SKILLED NURSING LAB WORK LABWORK SKILLED NURSING LABWORK SKILLED NURSING LABWORK SKILLED NURSING LABWORK SKILLED NURSING LABWORK Chief Complaint SKILLED NURSING LABWORK LABWORK SKILLED NURSING LAB WORK LABWORK SKILLED NURSING LABWORK SKILLED NURSING LABWORK SKILLED NURSING LABWORK SKILLED NURSING LABWORK SKILLED NURSING LABWORK LABWORK SKILLED NURSING LABWORK Chief Complaint LABWORK SKILLED NURSING LAB WORK LABWORK SKILLED NURSING LABWORK SKILLED NURSING LABWORK SKILLED NURSING LABWORK SKILLED NURSING LABWORK SKILLED NURSING LABWORK LABWORK LABWORK SKILLED NURSING LABWORK SKILLED NURSING LAB WORK SKILLED NURSING LABWORK SKILLED NURSING LAB WORK Chief Complaint LABWORK SKILLED NURSING LAB WORK LABWORK SKILLED NURSING LABWORK SKILLED NURSING LABWORK SKILLED NURSING LABWORK SKILLED NURSING LABWORK SKILLED NURSING LABWORK LABWORK LABWORK SKILLED NURSING LABWORK SKILLED NURSING LAB WORK SKILLED NURSING LABWORK SKILLED NURSING LAB WORK SKILLED NURSING LABWORK Chief Complaint LABWORK SKILLED NURSING LAB WORK LABWORK SKILLED NURSING LABWORK SKILLED NURSING LABWORK SKILLED NURSING LABWORK SKILLED NURSING LABWORK SKILLED NURSING LABWORK LABWORK LABWORK SKILLED NURSING LABWORK SKILLED NURSING LAB WORK SKILLED NURSING LABWORK SKILLED NURSING LAB WORK SKILLED NURSING LABWORK LABWORK Chief Complaint SKILLED NURSING LABWORK SKILLED NURSING LABWORK SKILLED NURSING LABWORK SKILLED NURSING LABWORK SKILLED NURSING LABWORK LABWORK LABWORK SKILLED NURSING LABWORK SKILLED NURSING LAB WORK SKILLED NURSING LABWORK SKILLED NURSING LAB WORK SKILLED NURSING LABWORK LABWORK SKILLED NURSING LABWORK Chief Complaint SKILLED NURSING LABWORK SKILLED NURSING LABWORK SKILLED NURSING LABWORK SKILLED NURSING LABWORK SKILLED NURSING LABWORK LABWORK LABWORK SKILLED NURSING LABWORK SKILLED NURSING LAB WORK SKILLED NURSING LABWORK SKILLED NURSING LAB WORK SKILLED NURSING LABWORK LABWORK SKILLED NURSING LABWORK LABWORK Chief Complaint SKILLED NURSING LABWORK LABWORK LABWORK SKILLED NURSING LABWORK SKILLED NURSING LAB WORK SKILLED NURSING LABWORK SKILLED NURSING LAB WORK SKILLED NURSING LABWORK LABWORK SKILLED NURSING LABWORK LABWORK SKILLED NURSING LAB WORK SKILLED NURSING LAB WORK SKILLED NURSING LABWORK Chief Complaint LABWORK SKILLED NURSING LABWORK LABWORK SKILLED NURSING LAB WORK SKILLED NURSING LAB WORK SKILLED NURSING LABWORK SKILLED NURSING LABWORK SKILLED NURSING LAB WORK SKILLED NURSING LAB WORK SKILLED NURSING LAB WORK LABWORK SKILLED NURSING LABWORK Chief Complaint SKILLED NURSING LAB WOR K SKILLED NURSING LAB WORK SKILLED NURSING LABWORK SKILLED NURSING LABWORK SKILLED NURSING LAB WORK SKILLED NURSING LAB WORK SKILLED NURSING LAB WORK LABWORK SKILLED NURSING LABWORK LABWORK SKILLED NURSING LAB WORK SKILLED NURSING LAB WORK Chief Complaint SKILLED NURSING LAB WOR K SKILLED NURSING LABWORK SKILLED NURSING LABWORK SKILLED NURSING LAB WORK SKILLED NURSING LAB WORK SKILLED NURSING LAB WORK LABWORK SKILLED NURSING LABWORK LABWORK SKILLED NURSING LAB WORK SKILLED NURSING LAB WORK Chief Complaint SKILLED NURSING LABWORK SKILLED NURSING LABWORK SKILLED NURSING LAB WORK SKILLED NURSING LAB WORK SKILLED NURSING LAB WORK LABWORK SKILLED NURSING LABWORK LABWORK SKILLED NURSING LAB WORK SKILLED NURSING LAB WORK SKILLED NURSING LABWORK LABWORK LABWORK Chief Complaint SKILLED NURSING LAB WOR K SKILLED NURSING LAB WORK SKILLED NURSING LAB WORK LABWORK SKILLED NURSING LABWORK LABWORK SKILLED NURSING LAB WORK SKILLED NURSING LAB WORK SKILLED NURSING LABWORK LABWORK LABWORK LABWORK LABWORK LABWORK Chief Complaint SKILLED NURSING LAB WOR K LABWORK SKILLED NURSING LABWORK LABWORK SKILLED NURSING LAB WORK SKILLED NURSING LAB WORK SKILLED NURSING LABWORK LABWORK LABWORK LABWORK LABWORK SKILLED NURSING LABWORK SKILLED NURSING LAB WORK LABWORK SKILLED NURSING LAB WORK SKILLED NURSING LAB WORK Chief Complaint SKILLED NURSING LAB WOR K LABWORK SKILLED NURSING LABWORK LABWORK SKILLED NURSING LAB WORK SKILLED NURSING LAB WORK SKILLED NURSING LABWORK LABWORK LABWORK LABWORK LABWORK SKILLED NURSING LABWORK SKILLED NURSING LAB WORK LABWORK SKILLED NURSING LAB WORK SKILLED NURSING LAB WORK SKILLED NURSING LABWORK Chief Complaint SKILLED NURSING LAB WOR K SKILLED NURSING LAB WORK SKILLED NURSING LABWORK LABWORK LABWORK LABWORK LABWORK SKILLED NURSING LABWORK SKILLED NURSING LAB WORK LABWORK SKILLED NURSING LAB WORK SKILLED NURSING LAB WORK SKILLED NURSING LABWORK NUSING HOME LAB WORK Chief Complaint SKILLED NURSING LAB WOR K SKILLED NURSING LABWORK LABWORK LABWORK LABWORK LABWORK SKILLED NURSING LABWORK SKILLED NURSING LAB WORK LABWORK SKILLED NURSING LAB WORK SKILLED NURSING LAB WORK SKILLED NURSING LABWORK NUSING HOME LAB WORK LABWORK Chief Complaint SKILLED NURSING LAB WOR K SKILLED NURSING LABWORK LABWORK LABWORK LABWORK LABWORK SKILLED NURSING LABWORK SKILLED NURSING LAB WORK LABWORK SKILLED NURSING LAB WORK SKILLED NURSING LAB WORK SKILLED NURSING LABWORK NUSING HOME LAB WORK SKILLED NURSING LABWORK LABWORK Chief Complaint LABWORK SKILLED NURSING LAB WORK SKILLED NURSING LAB WORK SKILLED NURSING LABWORK NUSING HOME LAB WORK SKILLED NURSING LABWORK LABWORK SKILLED NURSING LABWORK SKILLED NURSING LAB WORK LABWORK LABWORK Chief Complaint NUSING HOME LAB WORK SKILLED NURSING LABWORK LABWORK SKILLED NURSING LABWORK SKILLED NURSING LAB WORK LABWORK SKILLED NURSING LAB WORK LABWORK LABWORK Chief Complaint NUSING HOME LAB WORK SKILLED NURSING LABWORK LABWORK SKILLED NURSING LABWORK SKILLED NURSING LAB WORK LABWORK SKILLED NURSING LAB WORK LABWORK SKILLED NURSING LAB WORK LABWORK Chief Complaint SKILLED NURSING LABWORK LABWORK SKILLED NURSING LABWORK SKILLED NURSING LAB WORK LABWORK SKILLED NURSING LAB WORK LABWORK SKILLED NURSING LAB WORK LABWORK LABWORK Chief Complaint SKILLED NURSING LABWORK LABWORK SKILLED NURSING LABWORK SKILLED NURSING LAB WORK LABWORK SKILLED NURSING LAB WORK LABWORK SKILLED NURSING LAB WORK LABWORK LABWORK LABWORK Chief Complaint SKILLED NURSING LABWORK LABWORK SKILLED NURSING LABWORK SKILLED NURSING LAB WORK LABWORK SKILLED NURSING LAB WORK LABWORK SKILLED NURSING LAB WORK LABWORK LABWORK LABWORK LABWORK Chief Complaint SKILLED NURSING LABWORK LABWORK SKILLED NURSING LABWORK SKILLED NURSING LAB WORK LABWORK SKILLED NURSING LAB WORK LABWORK SKILLED NURSING LAB WORK LABWORK LABWORK SKILLED NURSING LAB WORK LABWORK LABWORK LABWORK Chief Complaint LABWORK SKILLED NURSING LABWORK SKILLED NURSING LAB WORK LABWORK SKILLED NURSING LAB WORK LABWORK SKILLED NURSING LAB WORK LABWORK LABWORK SKILLED NURSING LAB WORK LABWORK LABWORK LABWORK LABWORK LABWORK LABWORK LABWORK Chief Complaint SKILLED NURSING LABWORK SKILLED NURSING LAB WORK LABWORK SKILLED NURSING LAB WORK LABWORK SKILLED NURSING LAB WORK LABWORK LABWORK SKILLED NURSING LAB WORK LABWORK LABWORK LABWORK LABWORK LABWORK LABWORK LABWORK LABWORK Chief Complaint LABWORK SKILLED NURSING LAB WORK LABWORK SKILLED NURSING LAB WORK LABWORK LABWORK SKILLED NURSING LAB WORK LABWORK LABWORK LABWORK LABWORK LABWORK LABWORK LABWORK LABWORK LABWORK Chief Complaint SKILLED NURSING LABWORK LABWORK LABWORK LABWORK LABWORK SKILLED NURSING LABWORK SKILLED NURSING LAB WORK LABWORK SKILLED NURSING LAB WORK SKILLED NURSING LAB WORK SKILLED NURSING LABWORK NUSING HOME LAB WORK SKILLED NURSING LABWORK LABWORK SKILLED NURSING LABWORK SKILLED NURSING LAB WORK Chief Complaint Admit Date SKILLED NURSING LAB WORK March 13, 2024 5:00am LABWORK March 14, 2024 5 :00am SKILLED NURSING LAB WORK March 17 5:00am SKILLED NURSING LAB WORK March 18 5:00am SKILLED NURSING LAB WORK March 19 4:00am SKILLED NURSING LAB WORK March 20 5:00am SKILLED NURSING LAB WORK March 24 5:00am SKILLED NURSING LAB WORK March 27 5:00am LABWORK March 31, 2024 5:00am SKILLED NURSING LAB WORK April 04 5:00am LABWORK April 07, 2024 5 :00am SKILLED NURSING LAB WORK April 10, 2024 5:00am SKILLED NURSING LAB WORK April 14, 2024 5:00am SKILLED NURSING LAB WORK April 17 5:00am LABWORK April 21, 2024 5:00am SKILLED NURSING LAB WORK April 24 4:00am LABWORK April 28, 2024 5:00am SKILLED NURSING LAB WORK May 01 4:00am SKILLED NURSING LAB WORK May 05 5:00am SKILLED NURSING LAB WORK May 08, 2024 5:00am SKILLED NURSING LAB WORK May 09, 2024 4:00am LABWORK May 12, 2024 5: 00am SKILLED NURSING LAB WORK May 15, 2024 5:00am SKILLED NURSING LAB WORK May 19, 2024 4:00am SKILLED NURSING LAB WORK May 20, 2024 5:00am SKILLED NURSING LAB WORK May 22, 2024 5:00am LABWORK May 26, 2024 5 :00am SKILLED NURSING LAB WORK May 29, 2024 5:00am SKILLED NURSING LAB WORK June 02, 2024 5:00am SKILLED NURSING LAB WORK June 05, 2024 5:00am LABWORK June 09, 2024 5 :00am SKILLED NURSING LAB WORK June 12, 2024 5:00am SKILLED NURSING LAB WORK June 16 5:00am SKILLED NURSING LAB WORK June 19 5:00am LABWORK June 23, 2024 5:00am SKILLED NURSING LAB WORK June 26 5:00am SKILLED NURSING LAB WORK June 30 5:00am Chief Complaint Admit Date LABWORK April 07, 2024 5 :00am SKILLED NURSING LAB WORK April 10, 2024 5:00am SKILLED NURSING LAB WORK April 14, 2024 5:00am SKILLED NURSING LAB WORK April 17 5:00am LABWORK April 21, 2024 5:00am SKILLED NURSING LAB WORK April 24 4:00am LABWORK April 28, 2024 5:00am SKILLED NURSING LAB WORK May 01 4:00am SKILLED NURSING LAB WORK May 05 5:00am SKILLED NURSING LAB WORK May 08, 2024 5:00am SKILLED NURSING LAB WORK May 09, 2024 4:00am LABWORK May 12, 2024 5: 00am SKILLED NURSING LAB WORK May 15, 2024 5:00am SKILLED NURSING LAB WORK May 19, 2024 4:00am SKILLED NURSING LAB WORK May 20, 2024 5:00am SKILLED NURSING LAB WORK May 22, 2024 5:00am LABWORK May 26, 2024 5 :00am SKILLED NURSING LAB WORK May 29, 2024 5:00am SKILLED NURSING LAB WORK June 02, 2024 5:00am SKILLED NURSING LAB WORK June 05, 2024 5:00am LABWORK June 09, 2024 5 :00am SKILLED NURSING LAB WORK June 12, 2024 5:00am SKILLED NURSING LAB WORK June 16 5:00am SKILLED NURSING LAB WORK June 19 5:00am LABWORK June 23, 2024 5:00am SKILLED NURSING LAB WORK June 26 5:00am SKILLED NURSING LAB WORK June 30 5:00am SKILLED NURSING LAB WORK July 03 5:00am SKILLED NURSING LAB WORK July 07, 2024 4: 00am LABWORK July 11, 2024 5:00 am LABWORK July 14, 2024 5:0 0am SKILLED NURSING LAB WORK July 17, 2024 4 :00am SKILLED NURSING LAB WORK July 24, 2024 4 :00am Chief Complaint Admit Date SKILLED NURSING LAB WORK April 14, 2024 5:00am SKILLED NURSING LAB WORK April 17 5:00am LABWORK April 21, 2024 5:00am SKILLED NURSING LAB WORK April 24 4:00am LABWORK April 28, 2024 5:00am SKILLED NURSING LAB WORK May 01 4:00am SKILLED NURSING LAB WORK May 05 5:00am SKILLED NURSING LAB WORK May 08, 2024 5:00am SKILLED NURSING LAB WORK May 09, 2024 4:00am LABWORK May 12, 2024 5: 00am SKILLED NURSING LAB WORK May 15, 2024 5:00am SKILLED NURSING LAB WORK May 19, 2024 4:00am SKILLED NURSING LAB WORK May 20, 2024 5:00am SKILLED NURSING LAB WORK May 22, 2024 5:00am LABWORK May 26, 2024 5 :00am SKILLED NURSING LAB WORK May 29, 2024 5:00am SKILLED NURSING LAB WORK June 02, 2024 5:00am SKILLED NURSING LAB WORK June 05, 2024 5:00am LABWORK June 09, 2024 5 :00am SKILLED NURSING LAB WORK June 12, 2024 5:00am SKILLED NURSING LAB WORK June 16 5:00am SKILLED NURSING LAB WORK June 19 5:00am LABWORK June 23, 2024 5:00am SKILLED NURSING LAB WORK June 26 5:00am SKILLED NURSING LAB WORK June 30 5:00am SKILLED NURSING LAB WORK July 03 5:00am SKILLED NURSING LAB WORK July 07, 2024 4: 00am LABWORK July 11, 2024 5:00 am LABWORK July 14, 2024 5:0 0am SKILLED NURSING LAB WORK July 17, 2024 4 :00am SKILLED NURSING LAB WORK July 24, 2024 4 :00am LABWORK July 25, 2024 5:0 0am Chief Complaint Admit Date SKILLED NURSING LAB WORK April 14, 2024 5:00am SKILLED NURSING LAB WORK April 17 5:00am LABWORK April 21, 2024 5:00am SKILLED NURSING LAB WORK April 24 4:00am LABWORK April 28, 2024 5:00am SKILLED NURSING LAB WORK May 01 4:00am SKILLED NURSING LAB WORK May 05 5:00am SKILLED NURSING LAB WORK May 08, 2024 5:00am SKILLED NURSING LAB WORK May 09, 2024 4:00am LABWORK May 12, 2024 5: 00am SKILLED NURSING LAB WORK May 15, 2024 5:00am SKILLED NURSING LAB WORK May 19, 2024 4:00am SKILLED NURSING LAB WORK May 20, 2024 5:00am SKILLED NURSING LAB WORK May 22, 2024 5:00am LABWORK May 26, 2024 5 :00am SKILLED NURSING LAB WORK May 29, 2024 5:00am SKILLED NURSING LAB WORK June 02, 2024 5:00am SKILLED NURSING LAB WORK June 05, 2024 5:00am LABWORK June 09, 2024 5 :00am SKILLED NURSING LAB WORK June 12, 2024 5:00am SKILLED NURSING LAB WORK June 16 5:00am SKILLED NURSING LAB WORK June 19 5:00am LABWORK June 23, 2024 5:00am SKILLED NURSING LAB WORK June 26 5:00am SKILLED NURSING LAB WORK June 30 5:00am SKILLED NURSING LAB WORK July 03 5:00am SKILLED NURSING LAB WORK July 07, 2024 4: 00am LABWORK July 11, 2024 5:00 am LABWORK July 14, 2024 5:0 0am SKILLED NURSING LAB WORK July 17, 2024 4 :00am SKILLED NURSING LAB WORK July 21, 2024 5 :00am SKILLED NURSING LAB WORK July 24, 2024 4 :00am LABWORK July 25, 2024 5:0 0am SKILLED NURSING LAB WORK July 31, 2024 4 :00am Chief Complaint Admit Date SKILLED NURSING LAB WORK April 17 5:00am LABWORK April 21, 2024 5:00am SKILLED NURSING LAB WORK April 24 4:00am LABWORK April 28, 2024 5:00am SKILLED NURSING LAB WORK May 01 4:00am SKILLED NURSING LAB WORK May 05 5:00am SKILLED NURSING LAB WORK May 08, 2024 5:00am SKILLED NURSING LAB WORK May 09, 2024 4:00am LABWORK May 12, 2024 5: 00am SKILLED NURSING LAB WORK May 15, 2024 5:00am SKILLED NURSING LAB WORK May 19, 2024 4:00am SKILLED NURSING LAB WORK May 20, 2024 5:00am SKILLED NURSING LAB WORK May 22, 2024 5:00am LABWORK May 26, 2024 5 :00am SKILLED NURSING LAB WORK May 29, 2024 5:00am SKILLED NURSING LAB WORK June 02, 2024 5:00am SKILLED NURSING LAB WORK June 05, 2024 5:00am LABWORK June 09, 2024 5 :00am SKILLED NURSING LAB WORK June 12, 2024 5:00am SKILLED NURSING LAB WORK June 16 5:00am SKILLED NURSING LAB WORK June 19 5:00am LABWORK June 23, 2024 5:00am SKILLED NURSING LAB WORK June 26 5:00am SKILLED NURSING LAB WORK June 30 5:00am SKILLED NURSING LAB WORK July 03 5:00am SKILLED NURSING LAB WORK July 07, 2024 4: 00am LABWORK July 11, 2024 5:00 am LABWORK July 14, 2024 5:0 0am SKILLED NURSING LAB WORK July 17, 2024 4 :00am SKILLED NURSING LAB WORK July 21, 2024 5 :00am SKILLED NURSING LAB WORK July 24, 2024 4 :00am LABWORK July 25, 2024 5:0 0am SKILLED NURSING LAB WORK July 28, 2024 5 :00am SKILLED NURSING LAB WORK July 31, 2024 4 :00am Chief Complaint Admit Date SKILLED NURSING LAB WORK April 24 4:00am LABWORK April 28, 2024 5:00am SKILLED NURSING LAB WORK May 01 4:00am SKILLED NURSING LAB WORK May 05 5:00am SKILLED NURSING LAB WORK May 08, 2024 5:00am SKILLED NURSING LAB WORK May 09, 2024 4:00am LABWORK May 12, 2024 5: 00am SKILLED NURSING LAB WORK May 15, 2024 5:00am SKILLED NURSING LAB WORK May 19, 2024 4:00am SKILLED NURSING LAB WORK May 20, 2024 5:00am SKILLED NURSING LAB WORK May 22, 2024 5:00am LABWORK May 26, 2024 5 :00am SKILLED NURSING LAB WORK May 29, 2024 5:00am SKILLED NURSING LAB WORK June 02, 2024 5:00am SKILLED NURSING LAB WORK June 05, 2024 5:00am LABWORK June 09, 2024 5 :00am SKILLED NURSING LAB WORK June 12, 2024 5:00am SKILLED NURSING LAB WORK June 16 5:00am SKILLED NURSING LAB WORK June 19 5:00am LABWORK June 23, 2024 5:00am SKILLED NURSING LAB WORK June 26 5:00am SKILLED NURSING LAB WORK June 30 5:00am SKILLED NURSING LAB WORK July 03 5:00am SKILLED NURSING LAB WORK July 07, 2024 4: 00am LABWORK July 11, 2024 5:00 am LABWORK July 14, 2024 5:0 0am SKILLED NURSING LAB WORK July 17, 2024 4 :00am SKILLED NURSING LAB WORK July 21, 2024 5 :00am SKILLED NURSING LAB WORK July 24, 2024 4 :00am LABWORK July 25, 2024 5:0 0am SKILLED NURSING LAB WORK July 28, 2024 5 :00am SKILLED NURSING LAB WORK July 31, 2024 4 :00am LABWORK August 04, 2024 5:0 0am Chief Complaint Admit Date SKILLED NURSING LAB WORK May 15, 2024 5:00am SKILLED NURSING LAB WORK May 19, 2024 4:00am SKILLED NURSING LAB WORK May 20, 2024 5:00am SKILLED NURSING LAB WORK May 22, 2024 5:00am LABWORK May 26, 2024 5 :00am SKILLED NURSING LAB WORK May 29, 2024 5:00am SKILLED NURSING LAB WORK June 02, 2024 5:00am SKILLED NURSING LAB WORK June 05, 2024 5:00am LABWORK June 09, 2024 5 :00am SKILLED NURSING LAB WORK June 12, 2024 5:00am SKILLED NURSING LAB WORK June 16 5:00am SKILLED NURSING LAB WORK June 19 5:00am LABWORK June 23, 2024 5:00am SKILLED NURSING LAB WORK June 26 5:00am SKILLED NURSING LAB WORK June 30 5:00am SKILLED NURSING LAB WORK July 03 5:00am SKILLED NURSING LAB WORK July 07, 2024 4: 00am LABWORK July 11, 2024 5:00 am LABWORK July 14, 2024 5:0 0am SKILLED NURSING LAB WORK July 17, 2024 4 :00am SKILLED NURSING LAB WORK July 21, 2024 5 :00am SKILLED NURSING LAB WORK July 24, 2024 4 :00am LABWORK July 25, 2024 5:0 0am SKILLED NURSING LAB WORK July 28, 2024 5 :00am SKILLED NURSING LAB WORK July 31, 2024 4 :00am LABWORK August 04, 2024 5:0 0am LABWORK August 07, 2024 5:00 am SKILLED NURSING LAB WORK August 11, 2024 5: 00am SKILLED NURSING LAB WORK August 14, 2024 5 :00am SKILLED NURSING LAB WORK August 18, 2024 5 :00am Chief Complaint Admit Date SKILLED NURSING LAB WORK May 20, 2024 5:00am SKILLED NURSING LAB WORK May 22, 2024 5:00am LABWORK May 26, 2024 5 :00am SKILLED NURSING LAB WORK May 29, 2024 5:00am SKILLED NURSING LAB WORK June 02, 2024 5:00am SKILLED NURSING LAB WORK June 05, 2024 5:00am LABWORK June 09, 2024 5 :00am SKILLED NURSING LAB WORK June 12, 2024 5:00am SKILLED NURSING LAB WORK June 16 5:00am SKILLED NURSING LAB WORK June 19 5:00am LABWORK June 23, 2024 5:00am SKILLED NURSING LAB WORK June 26 5:00am SKILLED NURSING LAB WORK June 30 5:00am SKILLED NURSING LAB WORK July 03 5:00am SKILLED NURSING LAB WORK July 07, 2024 4: 00am LABWORK July 11, 2024 5:00 am LABWORK July 14, 2024 5:0 0am SKILLED NURSING LAB WORK July 17, 2024 4 :00am SKILLED NURSING LAB WORK July 21, 2024 5 :00am SKILLED NURSING LAB WORK July 24, 2024 4 :00am LABWORK July 25, 2024 5:0 0am SKILLED NURSING LAB WORK July 28, 2024 5 :00am SKILLED NURSING LAB WORK July 31, 2024 4 :00am LABWORK August 04, 2024 5:0 0am LABWORK August 07, 2024 5:00 am SKILLED NURSING LAB WORK August 11, 2024 5: 00am SKILLED NURSING LAB WORK August 14, 2024 5 :00am SKILLED NURSING LAB WORK August 18, 2024 5 :00am LABWORK August 28, 2024 5:0 0am Chief Complaint Admit Date SKILLED NURSING LAB WORK May 22, 2024 5:00am LABWORK May 26, 2024 5 :00am SKILLED NURSING LAB WORK May 29, 2024 5:00am SKILLED NURSING LAB WORK June 02, 2024 5:00am SKILLED NURSING LAB WORK June 05, 2024 5:00am LABWORK June 09, 2024 5 :00am SKILLED NURSING LAB WORK June 12, 2024 5:00am SKILLED NURSING LAB WORK June 16 5:00am SKILLED NURSING LAB WORK June 19 5:00am LABWORK June 23, 2024 5:00am SKILLED NURSING LAB WORK June 26 5:00am SKILLED NURSING LAB WORK June 30 5:00am SKILLED NURSING LAB WORK July 03 5:00am SKILLED NURSING LAB WORK July 07, 2024 4: 00am LABWORK July 11, 2024 5:00 am LABWORK July 14, 2024 5:0 0am SKILLED NURSING LAB WORK July 17, 2024 4 :00am SKILLED NURSING LAB WORK July 21, 2024 5 :00am SKILLED NURSING LAB WORK July 24, 2024 4 :00am LABWORK July 25, 2024 5:0 0am SKILLED NURSING LAB WORK July 28, 2024 5 :00am SKILLED NURSING LAB WORK July 31, 2024 4 :00am LABWORK August 04, 2024 5:0 0am LABWORK August 07, 2024 5:00 am SKILLED NURSING LAB WORK August 11, 2024 5: 00am SKILLED NURSING LAB WORK August 14, 2024 5 :00am SKILLED NURSING LAB WORK August 18, 2024 5 :00am SKILLED NURSING LAB WORK August 21, 2024 5 :00am LABWORK August 28, 2024 5:0 0am LABWORK September 01, 2024 5:0 0am Chief Complaint Admit Date SKILLED NURSING LAB WORK June 05, 2024 5:00am LABWORK June 09, 2024 5 :00am SKILLED NURSING LAB WORK June 12, 2024 5:00am SKILLED NURSING LAB WORK June 16 5:00am SKILLED NURSING LAB WORK June 19 5:00am LABWORK June 23, 2024 5:00am SKILLED NURSING LAB WORK June 26 5:00am SKILLED NURSING LAB WORK June 30 5:00am SKILLED NURSING LAB WORK July 03 5:00am SKILLED NURSING LAB WORK July 07, 2024 4: 00am LABWORK July 11, 2024 5:00 am LABWORK July 14, 2024 5:0 0am SKILLED NURSING LAB WORK July 17, 2024 4 :00am SKILLED NURSING LAB WORK July 21, 2024 5 :00am SKILLED NURSING LAB WORK July 24, 2024 4 :00am LABWORK July 25, 2024 5:0 0am SKILLED NURSING LAB WORK July 28, 2024 5 :00am SKILLED NURSING LAB WORK July 31, 2024 4 :00am LABWORK August 04, 2024 5:0 0am LABWORK August 07, 2024 5:00 am SKILLED NURSING LAB WORK August 11, 2024 5: 00am SKILLED NURSING LAB WORK August 14, 2024 5 :00am SKILLED NURSING LAB WORK August 18, 2024 5 :00am SKILLED NURSING LAB WORK August 21, 2024 5 :00am SKILLED NURSING LAB WORK August 25, 2024 4 :00am LABWORK August 28, 2024 5:0 0am LABWORK September 01, 2024 5:0 0am LABWORK September 04, 2024 5:00am Chief Complaint Admit Date SKILLED NURSING LAB WORK June 05, 2024 5:00am LABWORK June 09, 2024 5 :00am SKILLED NURSING LAB WORK June 12, 2024 5:00am SKILLED NURSING LAB WORK June 16 5:00am SKILLED NURSING LAB WORK June 19 5:00am LABWORK June 23, 2024 5:00am SKILLED NURSING LAB WORK June 26 5:00am SKILLED NURSING LAB WORK June 30 5:00am SKILLED NURSING LAB WORK July 03 5:00am SKILLED NURSING LAB WORK July 07, 2024 4: 00am LABWORK July 11, 2024 5:00 am LABWORK July 14, 2024 5:0 0am SKILLED NURSING LAB WORK July 17, 2024 4 :00am SKILLED NURSING LAB WORK July 21, 2024 5 :00am SKILLED NURSING LAB WORK July 24, 2024 4 :00am LABWORK July 25, 2024 5:0 0am SKILLED NURSING LAB WORK July 28, 2024 5 :00am SKILLED NURSING LAB WORK July 31, 2024 4 :00am LABWORK August 04, 2024 5:0 0am LABWORK August 07, 2024 5:00 am SKILLED NURSING LAB WORK August 11, 2024 5: 00am SKILLED NURSING LAB WORK August 14, 2024 5 :00am SKILLED NURSING LAB WORK August 18, 2024 5 :00am SKILLED NURSING LAB WORK August 21, 2024 5 :00am SKILLED NURSING LAB WORK August 25, 2024 4 :00am LABWORK August 28, 2024 5:0 0am LABWORK September 01, 2024 5:0 0am LABWORK September 04, 2024 5:00am LABWORK September 15, 2024 5:00a m Chief Complaint Admit Date SKILLED NURSING LAB WORK June 19 5:00am LABWORK June 23, 2024 5:00am SKILLED NURSING LAB WORK June 26 5:00am SKILLED NURSING LAB WORK June 30 5:00am SKILLED NURSING LAB WORK July 03 5:00am SKILLED NURSING LAB WORK July 07, 2024 4: 00am LABWORK July 11, 2024 5:00 am LABWORK July 14, 2024 5:0 0am SKILLED NURSING LAB WORK July 17, 2024 4 :00am SKILLED NURSING LAB WORK July 21, 2024 5 :00am SKILLED NURSING LAB WORK July 24, 2024 4 :00am LABWORK July 25, 2024 5:0 0am SKILLED NURSING LAB WORK July 28, 2024 5 :00am SKILLED NURSING LAB WORK July 31, 2024 4 :00am LABWORK August 04, 2024 5:0 0am LABWORK August 07, 2024 5:00 am SKILLED NURSING LAB WORK August 11, 2024 5: 00am SKILLED NURSING LAB WORK August 14, 2024 5 :00am SKILLED NURSING LAB WORK August 18, 2024 5 :00am SKILLED NURSING LAB WORK August 21, 2024 5 :00am SKILLED NURSING LAB WORK August 25, 2024 4 :00am LABWORK August 28, 2024 5:0 0am LABWORK September 01, 2024 5:0 0am LABWORK September 04, 2024 5:00am SKILLED NURSING LAB WORK September 08, 2024 4:00 am SKILLED NURSING LAB WORK September 11, 2024 5:00 am LABWORK September 15, 2024 5:00a m SKILLED NURSING LAB WORK September 25, 2024 5:0 0am SKILLED NURSING LAB WORK September 30, 2024 4:0 0am Chief Complaint Admit Date SKILLED NURSING LAB WORK June 12, 2024 5:00am SKILLED NURSING LAB WORK June 16 5:00am SKILLED NURSING LAB WORK June 19 5:00am LABWORK June 23, 2024 5:00am SKILLED NURSING LAB WORK June 26 5:00am SKILLED NURSING LAB WORK June 30 5:00am SKILLED NURSING LAB WORK July 03 5:00am SKILLED NURSING LAB WORK July 07, 2024 4: 00am LABWORK July 11, 2024 5:00 am LABWORK July 14, 2024 5:0 0am SKILLED NURSING LAB WORK July 17, 2024 4 :00am SKILLED NURSING LAB WORK July 21, 2024 5 :00am SKILLED NURSING LAB WORK July 24, 2024 4 :00am LABWORK July 25, 2024 5:0 0am SKILLED NURSING LAB WORK July 28, 2024 5 :00am SKILLED NURSING LAB WORK July 31, 2024 4 :00am LABWORK August 04, 2024 5:0 0am LABWORK August 07, 2024 5:00 am SKILLED NURSING LAB WORK August 11, 2024 5: 00am SKILLED NURSING LAB WORK August 14, 2024 5 :00am SKILLED NURSING LAB WORK August 18, 2024 5 :00am SKILLED NURSING LAB WORK August 21, 2024 5 :00am SKILLED NURSING LAB WORK August 25, 2024 4 :00am LABWORK August 28, 2024 5:0 0am LABWORK September 01, 2024 5:0 0am LABWORK September 04, 2024 5:00am SKILLED NURSING LAB WORK September 08, 2024 4:00 am LABWORK September 15, 2024 5:00a m Chief Complaint Admit Date SKILLED NURSING LAB WORK July 07, 2024 4: 00am LABWORK July 11, 2024 5:00 am LABWORK July 14, 2024 5:0 0am SKILLED NURSING LAB WORK July 17, 2024 4 :00am SKILLED NURSING LAB WORK July 21, 2024 5 :00am SKILLED NURSING LAB WORK July 24, 2024 4 :00am LABWORK July 25, 2024 5:0 0am SKILLED NURSING LAB WORK July 28, 2024 5 :00am SKILLED NURSING LAB WORK July 31, 2024 4 :00am LABWORK August 04, 2024 5:0 0am LABWORK August 07, 2024 5:00 am SKILLED NURSING LAB WORK August 11, 2024 5: 00am SKILLED NURSING LAB WORK August 14, 2024 5 :00am SKILLED NURSING LAB WORK August 18, 2024 5 :00am SKILLED NURSING LAB WORK August 21, 2024 5 :00am SKILLED NURSING LAB WORK August 25, 2024 4 :00am LABWORK August 28, 2024 5:0 0am LABWORK September 01, 2024 5:0 0am LABWORK September 04, 2024 5:00am SKILLED NURSING LAB WORK September 08, 2024 4:00 am SKILLED NURSING LAB WORK September 11, 2024 5:00 am LABWORK September 15, 2024 5:00a m SKILLED NURSING LAB WORK September 18, 2024 5:0 0am SKILLED NURSING LAB WORK September 22, 2024 5:0 0am SKILLED NURSING LAB WORK September 25, 2024 5:0 0am SKILLED NURSING LAB WORK September 30, 2024 4:0 0am SKILLED NURSING LAB WORK October 02, 2024 5:0 0am SKILLED NURSING LAB WORK October 09, 2024 5:0 0am Chief Complaint Admit Date SKILLED NURSING LAB WORK October 09, 2024 5:0 0am LABWORK October 13, 2024 5:00a m SKILLED NURSING LAB WORK October 16, 2024 5: 00am SKILLED NURSING LAB WORK October 20, 2024 4: 00am SKILLED NURSING LAB WORK October 23, 2024 5: 00am SKILLED NURSING LAB WORK October 27, 2024 4: 00am SKILLED NURSING LAB WORK October 30, 2024 6: 35am LABWORK November 03, 2024 5:00 am SKILLED NURSING LAB WORK November 06, 2024 4:0 0am SKILLED NURSING LAB WORK November 10, 2024 4:0 0am SKILLED NURSING LAB WORK November 13, 2024 5: 00am SKILLED NURSING LAB WORK November 17, 2024 5: 00am SKILLED NURSING LAB WORK November 20, 2024 5: 00am SKILLED NURSING LAB WORK November 24, 2024 5: 00am SKILLED NURSING LAB WORK November 27, 2024 5: 00am LABWORK November 28, 2024 5:00 am LABWORK December 01, 2024 5:00 am SKILLED NURSING LAB WORK December 02, 2024 4: 00am SKILLED NURSING LAB WORK December 04, 2024 5: 00am SKILLED NURSING LAB WORK December 08, 2024 5 :00am LABWORK December 11, 2024 6:0 0am SKILLED NURSING LAB WORK December 15, 2024 4:00am SKILLED NURSING LAB WORK December 18, 2024 5:00am SKILLED NURSING LAB WORK December 22, 2024 4:00am LABWORK December 24, 2024 5: 00am SKILLED NURSING LAB WORK December 25, 2024 5:00am SKILLED NURSING LAB WORK December 26, 2024 5:00am LABWORK December 29, 2024 5: 00am SKILLED NURSING LAB WORK January 01, 2025 5:00am SKILLED NURSING LAB WORK January 06 5:00am LABWORK January 08, 2025 5:00am SKILLED NURSING LAB WORK January 12 4:00am SKILLED NURSING LAB WORK January 15 5:00am LABWORK January 19, 2025 5:00am SKILLED NURSING LAB WORK January 26 4:00am Chief Complaint Admit Date LABWORK November 03, 2024 5:00 am SKILLED NURSING LAB WORK November 06, 2024 4:0 0am SKILLED NURSING LAB WORK November 10, 2024 4:0 0am SKILLED NURSING LAB WORK November 13, 2024 5: 00am SKILLED NURSING LAB WORK November 17, 2024 5: 00am SKILLED NURSING LAB WORK November 20, 2024 5: 00am SKILLED NURSING LAB WORK November 24, 2024 5: 00am SKILLED NURSING LAB WORK November 27, 2024 5: 00am LABWORK November 28, 2024 5:00 am LABWORK December 01, 2024 5:00 am SKILLED NURSING LAB WORK December 02, 2024 4: 00am SKILLED NURSING LAB WORK December 04, 2024 5: 00am SKILLED NURSING LAB WORK December 08, 2024 5 :00am LABWORK December 11, 2024 6:0 0am SKILLED NURSING LAB WORK December 15, 2024 4:00am SKILLED NURSING LAB WORK December 18, 2024 5:00am SKILLED NURSING LAB WORK December 22, 2024 4:00am LABWORK December 24, 2024 5: 00am SKILLED NURSING LAB WORK December 25, 2024 5:00am SKILLED NURSING LAB WORK December 26, 2024 5:00am LABWORK December 29, 2024 5: 00am SKILLED NURSING LAB WORK January 01, 2025 5:00am SKILLED NURSING LAB WORK January 06 5:00am LABWORK January 08, 2025 5:00am SKILLED NURSING LAB WORK January 12 4:00am SKILLED NURSING LAB WORK January 15 5:00am LABWORK January 19, 2025 5:00am SKILLED NURSING LAB WORK January 22 5:00am SKILLED NURSING LAB WORK January 26 4:00am SKILLED NURSING LAB WORK January 29 7:30am SKILLED NURSING LAB WORK February 02 4:00am SKILLED NURSING LAB WORK February 05, 2025 5:00am SKILLED NURSING LAB WORK February 16, 2025 4:00am Reason for Referral Specialty Diagnoses / Procedures Referred By Contac t Referred To Contact Urology Diagnoses Other fatigue Lanette Munguia DO [address] [place] [address] [facility]ro [address] [place] [address] Referral ID Status Reason Start Date Expiration Date V isits Requested Visits Authorized [id number] Open Specialty Services Required 11/01/2021 11/01/2022 1 1 Scheduling Instructions [facility] - [place] [address] Specialty Diagnoses / Procedures Referred By Contac t Referred To Contact IP Unit Diagnoses Heel ulceration, left, with unspecified severity (HCC) [place] [address] [place] [address] [facility] [address] [place] [address] Referral ID Status Reason Start Date Expiration Date V isits Requested Visits Authorized [id number] Open Specialty Services Required 12/22/2021 12/22/2022 1 1 Scheduling Instructions [facility] Wound Care/Hyperbaric - [facility] [address] [place] [address] Comments Please use the parking lot located on [address] or [employer] [facility]. There are handicap parking spots located in a small lot beside the wound care entrance off of [address]. Please be advised there is a small incline from those handicap spots to our main door. Bring photo ID and insurance card to photocopy. Wear loose fitting clothing (to easily access wound). Bring list of medications (or can be sent by office). Check in at Registration for your first visit. Please call us directly with any questions [phone]. We look forward to helping you heal. Specialty Diagnoses / Procedures Referred By Aki kumari Referred To Contact Radiology Diagnoses Left flank pain Calculus of ureter Procedures CT abdomen pelvis wo IV contrast Rebecca Buck MD [address] [place] [address] Referral ID Status Reason Start Date Expiration Date V isits Requested Visits Authorized [id number] Pending Review 08/13/2023 08/12/2024 1 1 Referral ID Status Reason Start Date Expiration Date Visits Re quested Visits Authorized [id number] Closed 08/17/2023 09/16/2023 1 1 Additional Source Comments Source Comments (unrecognize d section and content) In the event this informatio n is protected by the Federal Confidentiality of Alcohol and Drug Abuse Patient Records regulations: The Federal rules restrict any use of the information to criminally investigate or prosecute any alcohol or drug abuse patient.[facility] the event this information is protected by the Federal Confidentiality of Alcohol and Drug Abuse Patient Records regulations: The Federal rules restrict any use of the information to criminally investigate or prosecute any alcohol or drug abuse patient.[facility] (unrecognized sect ion and content) No Status Records FoundNo Status Records FoundNo Status Records FoundNo Status Records FoundNo Status Records FoundNo Status Records FoundNo Status Records FoundNo Status Records FoundNo Status Records FoundNo Status Records Found INFORMATION SOURCE (unrecogn ized section and content) DATE CREATED AUTHOR 05/20/2021 [facility] DATE CREATED AUTHOR AUTHOR'S ORGANIZ ATION 06/07/2021 [facility] DATE CREATED AUTHOR AUTHOR'S ORGANIZ ATION 08/02/2021 [facility] DATE CREATED AUTHOR AUTHOR'S ORGANIZ ATION 12/09/2021 [facility] DATE CREATED AUTHOR AUTHOR'S ORGANIZ ATION 12/29/2021 [facility] DATE CREATED AUTHOR AUTHOR'S ORGANIZ ATION 02/04/2022 [facility] DATE CREATED AUTHOR AUTHOR'S ORGANIZ ATION 03/03/2022 [facility] DATE CREATED AUTHOR AUTHOR'S ORGANIZ ATION 09/15/2023 [facility] DATE CREATED AUTHOR AUTHOR'S ORGANIZ ATION 03/18/2025 [facility] Reason for Visit (unrecogniz ed section and content) Reason Comments Missed Appointment Reason Comments Leg Swelling Blood clots Reason Comments Altered Mental Status Pt presents to ED via [facility] for complaint listed. Pt is from [facility]. Pt's LKW was 1000 hours today. Per EMS, pt had a - [place]. Pt denies CP, SOB, and N/V. Pt seems slow to respond, slightly confused at this time. Reason Comments Osteomyelitis Patient from [facility], facility did xrays on left lower leg and and have concerns for possible osteomyelitis A&Ox2 to self and place, stated year 2022 preside [facility]ini Reason Comments Fall Patient had unwitnes sed fall at [facility] landed on butt. Is on [...] Buck MD [address] [place] [address] Referral ID Status Reason Start Date Expiration Date Visits Re quested Visits Authorized [id number] Closed 08/17/2023 09/16/2023 1 1 Reason Comments [...] Status Dates Carlos NOVAK Attending Provider Active Life Agent Relationship Specialty Start Date End Date Mateus Burris [address] [place] [address] PCP - General Family Practice 11/12/19 Life Agent Relationship Specialty [place] [address] [place] [address] PCP - General Family Medicine 09/09/20 Life Agent Relationship Specialty [place] [address] [place] [address] PCP - General Family Medicine 09/09/20 Life Agent Relationship Specialty [place] [address] [place] [address] PCP - General Family Medicine 09/09/20 Life Agent Relationship Specialty Start Date End Date Carlos Cavazos MD [address] [facility] [address] [place] [address] PCP - General Internal Medicine 02/20/22 Team [...] Monika Staley MD Primary Care Provider Active Life Agent Relationship Specialty Start Date End Date Carlos Cavazos [address] [place] [phone] PCP - General 12/21/21 Rebecca Buck MD [address] [place] [address] [address] [place] [address] Surgeon Urology 06/25/23 Team Status: Inactive Member [...] Monika Staley MD Primary Care Provider Active Peter Katsaros OLS Attending Provider, Referring Provi lupillo Active Life Agent Relationship Specialty Start Date End Date Carlos Cavazos [address] [place] [phone] PCP - General 12/21/21 Rebecca Buck MD [address] [address] Surgeon Urology 06/25/23 Life Agent Relationship Specialty Start Date End Date Carlos Cavazos [address] [place] [phone] PCP - General 12/21/21 Rebecca Buck MD [address] [address] Surgeon Urology 06/25/23 Life Agent Relationship Specialty Start Date End Date Carlos Cavazos [address] [place] [phone] PCP - General 12/21/21 Rebecca Buck MD [address] [address] Surgeon Urology 06/25/23 Life Agent Relationship Specialty Start Date End Date Carlos Cavazos [address] [place] [phone] PCP - General 12/21/21 Rebecca Buck MD [address] [address] Surgeon Urology 06/25/23 Life Agent Relationship Specialty Start Date End Date Carlos Cavazos [address] [place] [phone] PCP - General 12/21/21 Rebecca Buck MD [address] [address] Surgeon Urology 06/25/23 Life Agent Relationship Specialty Start Date End Date Carlos Cavazos [address] [place] [phone] PCP - General 12/21/21 Rebecca Buck MD [address] [address] Surgeon Urology 06/25/23 Team Status: Inactive Member Role Status Dates Dr. Monika Staley MD Primary Care Provider Active Start: March 13, 2024 End: March 13, 2024 [facility] Attending Provider Active Start: March 13, [...] March 17, 2024 End: March 17, 2024 [facility] Attending Provider Active Start: March 17, 2024 End: March 17, 2024 Team Status: Inactive Member Role Status Dates Dr. Monika Staley MD Primary Care Provider Active Start: March 18, 2024 End: March 18, 2024 [facility] Attending Provider Active Start: March 18, [...] March 20, 2024 End: March 20, 2024 [facility] Attending Provider Active Start: March 20, [...] March 27, 2024 End: March 27, 2024 [facility] Attending Provider Active Start: March 27, [...] Care Provider Active Start: July 07, 2024 [facility] Attending Provider Active Start: July 07, [...] Provider Active Start: July 07, 2024 End: March 3rd, 202Jin NOVAK MD Attending Provider Active Start: July [...] Activ e Start: December 15, 2024 Karon NOVKA MD Attending physician Active Start: December 15, [...] [id number] (Given - Provider: Lisa Ashby, AYUSH) 1024 [...] mg, Oral, ONCE Warfarin, 1 dose, On [facility] 10/29/21 at 1800, Indication of Use: [...] BE BASED ON THE PRIMARY CLINICAL RECORDS. [facility] [employer] [facility]. provides no warranty or guarantee of the accuracy or completeness of information in this document.
[2025-04-23 09:55] LABS: Prothrombin Time (Protime)PT. 33.0 SECONDS (11.7-14.9)
== END ==
LOC: OLS.SANC 05:00
PROVIDERS: PCP General Practice
DX: Z79.01 Long term (current) use of anticoagulants (principal)
CPT/HCPCS: 36415; 85610

== ENCOUNTER → 2025-04-24 05:00 | Outpatient (REF) | payer MEDICARE, MEDICAID, SELFPAY ==
--- OUTSIDE RECORDS SUMMARY | 2025-04-24 04:24 | XMS RPT_ITS | CCD ---
Author Organization [facility] Care Team Providers Care Flatwork Catcher Name Role Phone Mateus Burris Primary Care Provider [phone] Monika Staley Unavailable Unavailable Leonor, Maddy L [...] Unavailable Mateus Burris Primary Care Provider [phone] Monika Staley MD Primary Care Provider Monika [...] Unavailable Carlos Cavazos MD Primary Care Provider [phone] PROVIDER, UNKNOWN Primary Care Unavailable PROVIDER, UNKNOWN [...] VALLADARES, Dr. Monika Horner Primary Care Provider [facility] Attending Provider [phone] Carlos Nelson Attending Provider Jonh Pascual MD, [...] Jonh Cardoza MD, Dr. Monika Horner Primary [facility] Physician Karon Corrales MD Attending Physician Unav ailCarlos Anglin Attending Physician Camelia Corrales MD, Karon Referring Provider Unava evan Staley MD, Dr. Monika Horner Primary [facility] Physician Carlos Nelson Attending Physician Unavailvanessa Corrales [...] OLS, Mahaveer Attending Unavail able [facility] [place] Attending Unavai lable Luís, Shiela Primary Care Unavailable Crisostomo OLS, Babbaljeet Attending Unavailable Luís, Shiela Primary Care Unavailable [facility] [place] Attending Unavai lable Luís, Shiela Primary Care [...] Unavailable MukkKaron Hoover Attending Unavail able Luís, [facility] Primary Care Unavailable NubiaKaron Stacy Attending Unavail able Luís, Shiela Primary Care Unavailable NubiaKaron Stacy Attending Unavail able Luís, [facility] Primary Care Unavailable MaribelCarlos Flood Attending Unavailable [place] Unavailable Allergies Allergy Classification Reported Allergen(s) Allergy Type Date of Onset Reaction(s) Facility (13 sources) Morphine Drug Allergy 5 [facility] Work Phone: (15 sources) Alcohol Propensity to adverse reactions to drug 3 Rash, Hives, Other: See Comments, Other [facility] Work Phone: (1 source) Latex Drug Allergy [address] [facility] (8 sources) Cortisone Drug Allergy 2 [facility] (7 sources) Latex Allergy to substance 0 Rash [facility] Medications Current Medications Medication Drug Class(es) Dates Sig (Normalized) Sig (Original) Acetaminophen (10 sources) Start: 10-21-2021 acetaminophen (TYLENOL) tablet 650 mg Start: 09-14-2021 acetaminophen (TYLENOL) 325 MG tablet 650 mg every 6 hours as needed 0 09/14/2021 Active take 2 tablets by [facility] eight hours acetaminophen (TYLENOL) 325 [...] Start: 11-01-2021 take 1 capsule by [facility] once daily tamsulosin (FLOMAX) 0.4 [...] Comment on above: [facility]. Antacid TABS (6 [...] Comment on above: Take 1 capsule by [facility] three times daily. Complete Multi-Vitamin CHEW [...] docusate sodium 50 mg / sennosides, senior care 8.6 mg oral tablet (1 source) Start: [...] Oral Capsule (2 sources) Arabic Panax Gin amyuri 100 MG Oral Capsule Refills: 0 Active [...] once daily. Pentoxifylline (1 source) Blood Viscosity Site Damage Prevention Technician PENTOXIFYLLINE ORAL Take by mouth. 0 Active Comment on above: Take by mouth. petrolatum 0.41 mg/mg topical ointment (1 source) Start : 08-20 white petrolatum (AQUAPHOR) 41 % topical ointment Apply to affected area once daily. 0 08/20/2021 Active Comment on above: Apply to affected ar ea once daily. 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, [address] PT Coag (PPP) [Time] 25.1 s High 11.7-14.9 [facility] Comment on above: Order Comment: 411-2 Performed By: #### L 300.3900 ####[facility] [address] [place], [address] Prothrombin Time w/INRon INR Coag (PPP) [Relative time] 2.3 {INR} Normal [facility] Comment on above: Order Comment: 411-2 Performed By: #### L 300.3900 ####[facility] [address] [place], [address] PT Coag (PPP) [Time] 25.5 s High 11.7-14.9 [facility] Comment on above: Order Comment: 411-2 Performed By: #### L 300.3900 ####[facility] [address] [place], [address] Prothrombin Time w/INRon INR Coag (PPP) [Relative time] 2.0 {INR} Normal [facility] Comment on above: Order Comment: 411.2 Performed By: #### L 300.3900 ####[facility] [address] [place], [address] PT Coag (PPP) [Time] 22.8 s High 11.7-14.9 [facility] Comment on above: Order Comment: 411.2 Performed By: #### L 300.3900 ####[facility] [address] [place], [address] Prothrombin Time w/INRon INR Coag (PPP) [Relative time] 1.7 {INR} Normal [facility] Comment on above: Order Comment: 411-2 Performed By: #### L 300.3900 ####[facility] [address] [place], [address] PT Coag (PPP) [Time] 20.5 s High 11.7-14.9 [facility] Comment on above: Order Comment: 411-2 Performed By: #### L 300.3900 ####[facility] [address] [place], [address] Prothrombin Time w/INRon INR Coag (PPP) [Relative time] 1.5 {INR} Normal [facility] Comment on above: Order Comment: 411.2 Performed By: #### L 300.3900 ####[facility] [address] [place], [address] PT Coag (PPP) [Time] 18.4 s High 11.7-14.9 [facility] Comment on above: Order Comment: 411.2 Performed By: #### L 300.3900 ####[facility] [address] [place], [address] Prothrombin Time w/INRon INR Coag (PPP) [Relative time] 1.8 {INR} Normal [facility] Comment on above: Order Comment: 411.2 Performed By: #### L 300.3900 ####[facility] [address] [place], [address] PT Coag (PPP) [Time] 21.2 s High 11.7-14.9 [facility] Comment on above: Order Comment: 411.2 Performed By: #### L 300.3900 ####[facility] [address] [place], [place], [phone] International normalized rat io (INR) calculationOrdered By: Carlos Cavazos on 03-02-2025 INR Coag (Bld) [Relative time] 2.2 {INR} [facility] Prothrombin Time w/INRon INR Coag (PPP) [Relative time] 2.2 {INR} Normal [facility] Comment on above: Order Comment: 411-2 Performed By: #### L 300.3900 ####[facility] [address] [place], [place], [phone] Prothrombin timeOrdered By: Carlos Cavazos on 03-02-2025 PT Coag (PPP) [Time] 25.3 s High 11.7-14.9 [facility] Comment on above: Order Comment: 411-2 Performed By: #### L 300.3900 ####[facility] [address] [place], [place], [phone] International normalized rat io (INR) calculationOrdered By: Karon Corrales on 02-26-2025 INR Coag (Bld) [Relative time] 2.2 {INR} [facility] Prothrombin Time w/INRon INR Coag (PPP) [Relative time] 2.2 {INR} Normal [facility] Comment on above: Order Comment: 411.2 Performed By: #### L 300.3900 ####[facility] [address] [place], [address] PT Coag (PPP) [Time] 24.5 s High 11.7-14.9 [facility] Comment on above: Order Comment: 411.2 Performed By: #### L 300.3900 ####[facility] [address] [place], [place], [phone] Prothrombin timeOrdered By: Karon Corrales on 02-26-2025 PT Coag (PPP) [Time] 24.5 s High 11.7-14.9 [facility] International normalized rat io (INR) calculationOrdered By: Karon Corrales on 02-23-2025 INR Coag (Bld) [Relative time] 2.0 {INR} [facility] Prothrombin Time w/INRon INR Coag (PPP) [Relative time] 2.0 {INR} Normal [facility] Comment on above: Order Comment: 411.2 Performed By: #### L 300.3900 ####[facility] [address] [place], [place], [phone] PT Coag (PPP) [Time] 23.5 s High 11.7-14.9 [facility] Comment on above: Order Comment: 411.2 Performed By: #### L 300.3900 ####[facility] [address] [place], [place], [phone] Prothrombin timeOrdered By: Karon Corrales on 02-23-2025 PT Coag (PPP) [Time] 23.5 s High 11.7-14.9 [facility] International normalized rat io (INR) calculationOrdered By: Karon Corrales on 02-19-2025 INR Coag (Bld) [Relative time] 1.9 {INR} [facility] Prothrombin Time w/INRon INR Coag (PPP) [Relative time] 1.9 {INR} Normal [facility] Comment on above: Order Comment: 411.2 Performed By: #### L 300.3900 ####[facility] [address] [place], [address]) PT Coag (PPP) [Time] 21.8 s High 11.7-14.9 [facility] Comment on above: Order Comment: 411.2 Performed By: #### L 300.3900 ####[facility] [address] [place], [place], [address] Prothrombin timeOrdered By: Karon Corrales on 02-19-2025 PT Coag (PPP) [Time] 21.8 s High 11.7-14.9 [facility] International normalized rat io (INR) calculationOrdered By: Karon Corrales on 02-16-2025 INR Coag (Bld) [Relative time] 1.5 {INR} [facility] Prothrombin Time w/INRon INR Coag (PPP) [Relative time] 1.5 {INR} Normal [facility] Comment on above: Order Comment: 411.2 Performed By: #### L 300.3900 ####[facility] [address] [place], [place], [address] PT Coag (PPP) [Time] 18.6 s High 11.7-14.9 [facility] Comment on above: Order Comment: 411.2 Performed By: #### L 300.3900 ####[facility] [address] [place], [place], [phone] Prothrombin timeOrdered By: Karon Corrales on 02-16-2025 PT Coag (PPP) [Time] 18.6 s High 11.7-14.9 [facility] International normalized rat io (INR) calculationOrdered By: Karon Corrales on 02-12-2025 INR Coag (Bld) [Relative time] 2.5 {INR} [facility] Prothrombin Time w/INRon INR Coag (PPP) [Relative time] 2.5 {INR} Normal [facility] Comment on above: Order Comment: 411.2 Performed By: #### L 300.3900 ####[facility] [address] [place], [address] PT Coag (PPP) [Time] 27.5 s High 11.7-14.9 [facility] Comment on above: Order Comment: 411.2 Performed By: #### L 300.3900 ####[facility] [address] [place], [address] Prothrombin timeOrdered By: Karon Corrales on 02-12-2025 PT Coag (PPP) [Time] 27.5 s High 11.7-14.9 [facility] International normalized rat io (INR) calculationOrdered By: Carlos Cavazos on 02-09-2025 INR Coag (Bld) [Relative time] 2.5 {INR} [facility] Prothrombin Time w/INRon INR Coag (PPP) [Relative time] 2.5 {INR} Normal [facility] Comment on above: Order Comment: 411-2 Performed By: #### L 300.3900 ####[facility] [address] [place], [address] INR Normal [facility] Comment on above: Order Comment: 411.2 Result Comment: MISS ING TUBE Performed By: #### L 300.3900 ####[facility] [address] [place], [address] PROTIME Normal 11.7-14.9 [facility] Comment on above: Order Comment: 411.2 Result Comment: MISS ING TUBE Performed By: #### L 300.3900 ####[facility] [address] [place], [address] Prothrombin timeOrdered By: Carlos Cavazos on 02-09-2025 PT Coag (PPP) [Time] 27.2 s High 11.7-14.9 [facility] Comment on above: Order Comment: 411-2 Performed By: #### L 300.3900 ####[facility] [address] [place], [address] International normalized rat io (INR) calculationOrdered By: Karon Corrales on 02-05-2025 INR Coag (Bld) [Relative time] 2.5 {INR} [facility] Prothrombin Time w/INRon INR Coag (PPP) [Relative time] 2.5 {INR} Normal [facility] Comment on above: Order Comment: 411.2 Performed By: #### L 300.3900 ####[facility] [address] [place], [address] PT Coag (PPP) [Time] 27.6 s High 11.7-14.9 [facility] Comment on above: Order Comment: 411.2 Performed By: #### L 300.3900 ####[facility] [address] [place], [place], [phone] Prothrombin timeOrdered By: Karon Corrales on 02-05-2025 PT Coag (PPP) [Time] 27.6 s High 11.7-14.9 [facility] International normalized rat io (INR) calculationOrdered By: Karon Corrales on 02-02-2025 INR Coag (Bld) [Relative time] 2.4 {INR} [facility] Prothrombin Time w/INRon INR Coag (PPP) [Relative time] 2.4 {INR} Normal [facility] Comment on above: Order Comment: 411.2 Performed By: #### L 300.3900 ####[facility] [address] [place], [address] PT Coag (PPP) [Time] 26.8 s High 11.7-14.9 [facility] Comment on above: Order Comment: 411.2 Performed By: #### L 300.3900 ####[facility] [address] [place], [place], [phone] Prothrombin timeOrdered By: Karon Corrales on 02-02-2025 PT Coag (PPP) [Time] 26.8 s High 11.7-14.9 [facility] International normalized rat io (INR) calculationOrdered By: Karon Corrales on 01-29-2025 INR Coag (Bld) [Relative time] 2.7 {INR} [facility] Prothrombin Time w/INRon INR Coag (PPP) [Relative time] 2.7 {INR} Normal [facility] Comment on above: Performed By: #### L 300.3900 ####[facility] [address] [place], [place], [phone]) PT Coag (PPP) [Time] 29.1 s High 11.7-14.9 [facility] Comment on above: Performed By: #### L 300.3900 ####[facility] [address] [place], [place], [phone]) Prothrombin timeOrdered By: Karon Corrales on 01-29-2025 PT Coag (PPP) [Time] 29.1 s High 11.7-14.9 [facility] International normalized rat io (INR) calculationOrdered By: Karon Corrales on 01-26-2025 INR Coag (Bld) [Relative time] 2.0 {INR} [facility] Prothrombin Time w/INRon INR Coag (PPP) [Relative time] 2.0 {INR} Normal [facility] Comment on above: Order Comment: 411.2 Performed By: #### L 300.3900 ####[facility] [address] [place], [place], [phone]) PT Coag (PPP) [Time] 23.1 s High 11.7-14.9 [facility] Comment on above: Order Comment: 411.2 Performed By: #### L 300.3900 ####[facility] [address] [place], [place], [phone]) Prothrombin timeOrdered By: Karon Corrales on 01-26-2025 PT Coag (PPP) [Time] 23.1 s High 11.7-14.9 [facility] International normalized rat io (INR) calculationOrdered By: Karon Corrales on 01-22-2025 INR Coag (Bld) [Relative time] 2.4 {INR} [facility] Prothrombin Time w/INRon INR Coag (PPP) [Relative time] 2.4 {INR} Normal [facility] Comment on above: Order Comment: 411.2 Performed By: #### L 300.3900 ####[facility] [address] [place], [address] PT Coag (PPP) [Time] 26.6 s High 11.7-14.9 [facility] Comment on above: Order Comment: 411.2 Performed By: #### L 300.3900 ####[facility] [address] [place], [address] Prothrombin timeOrdered By: Karon Corrales on 01-22-2025 PT Coag (PPP) [Time] 26.6 s High 11.7-14.9 [facility] International normalized rat io (INR) calculationOrdered By: Carlos Cavazos on 01-19-2025 INR Coag (Bld) [Relative time] 2.7 {INR} [facility] Prothrombin Time w/INRon INR Coag (PPP) [Relative time] 2.7 {INR} Normal [facility] Comment on above: Order Comment: 411-2 Performed By: #### L 300.3900 ####[facility] [address] [place], [address] PT Coag (PPP) [Time] 29.7 s High 11.7-14.9 [facility] Comment on above: Order Comment: 411-2 Performed By: #### L 300.3900 ####[facility] [address] [place], [address] Prothrombin timeOrdered By: Carlos Cavazos on 01-19-2025 PT Coag (PPP) [Time] 29.7 s High 11.7-14.9 [facility] International normalized rat io (INR) calculationOrdered By: Karon Corrales on 01-15-2025 INR Coag (Bld) [Relative time] 2.4 {INR} [facility] Prothrombin Time w/INRon INR Coag (PPP) [Relative time] 2.4 {INR} Normal [facility] Comment on above: Order Comment: 411.1 Performed By: #### L 300.3900 ####[facility] [address] [place], [place], [phone] PT Coag (PPP) [Time] 26.6 s High 11.7-14.9 [facility] Comment on above: Order Comment: 411.1 Performed By: #### L 300.3900 ####[facility] [address] [place], [place], [address] Prothrombin timeOrdered By: Karon Corrales on 01-15-2025 PT Coag (PPP) [Time] 26.6 s High 11.7-14.9 [facility] KEPPRA (LEVETIRACETAM)on KEPPRA 30.1 ug/mL Normal 10.0-40.0 [facility] Comment on above: Order Comment: 411.1 Result Comment: Perf ormed at: [facility] [id number] Director: Alpesh Vázquez MD, Phone: [phone] Performed By: #### L 6710.0000, S416.2046 ####[facility] [address] [place], [place], [address] International normalized rat io (INR) calculationOrdered By: Karon Corrales on 01-12-2025 INR Coag (Bld) [Relative time] 2.3 {INR} [facility] LevetiracetamOrdered By: Carla Corrales on 01-12-2025 levETIRAcetam [Mass/Vol] 30.1 ug/mL 10.0-40.0 [facility] Comment on above: Performed at: - [facility] [address] [id number] Director: Alpesh Vázquez MD, Phone: [phone] Prothrombin Time w/INRon INR Coag (PPP) [Relative time] 2.3 {INR} Normal [facility] Comment on above: Order Comment: 411.1 Performed By: #### L 3310.0000, L300.3900 ####[facility] [address] [place], [address] PT Coag (PPP) [Time] 26.1 s High 11.7-14.9 [facility] Comment on above: Order Comment: 411.1 Performed By: #### L 3310.0000, L300.3900 ####[facility] [address] [place], [address] Prothrombin timeOrdered By: Karon Corrales on 01-12-2025 PT Coag (PPP) [Time] 26.1 s High 11.7-14.9 [facility] KEPPRA (LEVETIRACETAM)on KEPPRA 27.6 ug/mL Normal 10.0-40.0 [facility] Comment on above: Order Comment: 411.1 Result Comment: Perf ormed at: - [facility] [address] [id number] Director: Alpesh Vázquez MD, Phone: [phone] Performed By: #### L 3310.0000, L300.3900 ####[facility] [address] [place], [address] International normalized rat io (INR) calculationOrdered By: Karon Corrales on 01-08-2025 INR Coag (Bld) [Relative time] 2.2 {INR} [facility] Prothrombin Time w/INRon INR Coag (PPP) [Relative time] 2.2 {INR} Normal [facility] Comment on above: Order Comment: 411.1 Performed By: #### L 300.3900 ####[facility] [address] [place], [address] PT Coag (PPP) [Time] 24.5 s High 11.7-14.9 [facility] Comment on above: Order Comment: 411.1 Performed By: #### L 300.3900 ####[facility] [address] [place], [address] Prothrombin timeOrdered By: Karon Corrales on 01-08-2025 PT Coag (PPP) [Time] 24.5 s High 11.7-14.9 [facility] International normalized rat io (INR) calculationOrdered By: Karon Corrales on 01-06-2025 INR Coag (Bld) [Relative time] 3.2 {INR} [facility] LevetiracetamOrdered By: Carla Corrales on 01-06-2025 levETIRAcetam [Mass/Vol] 27.6 ug/mL 10.0-40.0 [facility] Comment on above: Performed at: [address] [id number] Director: Alpesh Vázquez MD, Phone: [phone] Prothrombin Time w/INRon INR Coag (PPP) [Relative time] 3.2 {INR} Normal [facility] Comment on above: Order Comment: 411.1 Performed By: #### L 3310.0000, L300.3900 ####[facility] [address] [place], [address] PT Coag (PPP) [Time] 33.1 s High 11.7-14.9 [facility] Comment on above: Order Comment: 411.1 Performed By: #### L 3310.0000, L300.3900 ####[facility] [address] [place], [place], [address] Prothrombin timeOrdered By: Karon Corrales on 01-06-2025 PT Coag (PPP) [Time] 33.1 s High 11.7-14.9 [facility] International normalized rat io (INR) calculationOrdered By: Karon Corrales on 01-01-2025 INR Coag (Bld) [Relative time] 2.7 {INR} [facility] Prothrombin Time w/INRon INR Coag (PPP) [Relative time] 2.7 {INR} Normal [facility] Comment on above: Order Comment: 411.1 Performed By: #### L [id number] ####[facility] [address] [place], [place], [address] Prothrombin timeOrdered By: Karon Corrales on 01-01-2025 PT Coag (PPP) [Time] 29.1 s High 11.7-14.9 [facility] Comment on above: Order Comment: 411.1 Performed By: #### L [id number] ####[facility] [address] [place], [place], [address] KEPPRA (LEVETIRACETAM)on KEPPRA 31.8 ug/mL Normal 10.0-40.0 [facility] Comment on above: Order Comment: 411-1 Result Comment: [facility] [place], [place] [id number] Director: Alpesh Vázquez MD, Phone: [phone] Performed By: #### L 3310.0000, L394.7706 ####[facility] [address] [place], [place], [address] International normalized rat io (INR) calculationOrdered By: Carlos Cavazos on 12-29-2024 INR Coag (Bld) [Relative time] 3.3 {INR} [facility] KEPPRA (LEVETIRACETAM)on KEPPRA 33.3 ug/mL Normal 10.0-40.0 [facility] Comment on above: Order Comment: 411.1 Result Comment: Perf ormed at: [facility] [address] [id number] Director: Alpesh Vázquez MD, Phone: [phone] Performed By: #### L 3310.0000 ####[facility] [address] [facility] [address] LevetiracetamOrdered By: Ted Cavazos on 12-29-2024 levETIRAcetam [Mass/Vol] 31.8 ug/mL 10.0-40.0 [facility] Comment on above: Performed at: [facility] [address] [id number] Director: Alpesh Vázquez MD, Phone: [phone] Prothrombin Time w/INRon INR Coag (PPP) [Relative time] 3.3 {INR} Normal [facility] Comment on above: Order Comment: 411-1 Performed By: #### L 3310.0000, L300.3900 ####[facility] [address] [place], [address] Prothrombin timeOrdered By: Carlos Cavazos on 12-29-2024 PT Coag (PPP) [Time] 34.0 s High 11.7-14.9 [facility] Comment on above: Order Comment: 411-1 Performed By: #### L 3310.0000, L300.3900 ####[facility] [address] [place], [place], [address] LevetiracetamOrdered By: Carla Corrales on 12-26-2024 levETIRAcetam [Mass/Vol] 33.3 ug/mL 10.0-40.0 [facility] Comment on above: Performed at: [facility] [address], [place] [id number] Director: Alpesh Vázquez MD, Phone: [phone] International normalized rat io (INR) calculationOrdered By: Karon Corrales on 12-25-2024 INR Coag (Bld) [Relative time] 2.8 {INR} [facility] Prothrombin Time w/INRon INR Coag (PPP) [Relative time] 2.8 {INR} Normal [facility] Comment on above: Order Comment: 411.1 Performed By: #### L 300.3900 ####[facility] [address] [place], [address] Prothrombin timeOrdered By: Karon Corrales on 12-25-2024 PT Coag (PPP) [Time] 30.0 s High 11.7-14.9 [facility] Comment on above: Order Comment: 411.1 Performed By: #### L 300.3900 ####[facility] [address] [place], [address] Anion gap in Serum or Plasma Ordered By: Carlos Cavazos on 12-24-2024 Anion gap [Moles/Vol] 13 mmol/L 09-18 [facility] BUN/creatinine ratioOrdered By: Carlos Cavazos on 12-24-2024 Urea nitrogen/Creatinine [Mass ratio] 19.2 mg/mg 02-23 [facility] Basic Metabolic Profile (BMP )on 12-24-2024 BUN/CRE 19.2 RATIO Normal 02-23 [facility] Comment on above: Order Comment: 411-1 Performed By: #### L 500.2500, L100.0500 ####[facility] [address] [place], [address] Calcium [Mass/Vol] 8.8 mg/dL Normal 7.6-11.0 [facility] Comment on above: Order Comment: 411-1 Performed By: #### L 500.2500, L100.0500 ####[facility] [address] [place], [address] Chloride [Moles/Vol] 103 mmol/L Normal 98-108 [facility] Comment on above: Order Comment: 411-1 Performed By: #### L 500.2500, L100.0500 ####[facility] [address] [place], [address] CO2 [Moles/Vol] 23.7 mmol/L Normal 21.0-32.0 [facility] Comment on above: Order Comment: 411-1 Performed By: #### L 500.2500, L100.0500 ####[facility] [address] [place], [address] Creatinine [Mass/Vol] 0.82 mg/dL Normal 0.70-1.20 [facility] Comment on above: Order Comment: 411-1 Performed By: #### L 500.2500, L100.0500 ####[facility] [address] [place], [address] GAP 13 Normal 5-15 [facility] Comment on above: Order Comment: 411-1 Performed By: #### L 500.2500, L100.0500 ####[facility] [address] [place], [address] GFR/1.73 sq M.predicted among non-blacks MDRD (S/P/Bld) [Vol rate/Area] 93 mL/min/{1.73_m2} Normal >60 [facility] Comment on above: Order Comment: 411-1 Result Comment: mL/m in/1.73m2 CKD-EPI Creatinine Equation (2020) Performed By: #### L 500.2500, L100.0500 ####[facility] [address] [place], [address] Glucose [Mass/Vol] 88 mg/dL Normal 70-99 [facility] Comment on above: Order Comment: 411-1 Performed By: #### L 500.2500, L100.0500 ####[facility] [address] [place], [address] Potassium [Moles/Vol] 4.2 mmol/L Normal 3.3-5.1 [facility] Comment on above: Order Comment: 411-1 Performed By: #### L 500.2500, L100.0500 ####[facility] [address] [place], [address] Sodium [Moles/Vol] 139 mmol/L Normal 133-145 [facility] Comment on above: Order Comment: 411-1 Performed By: #### L 500.2500, L100.0500 ####[facility] [address] [place], [address] Urea nitrogen [Mass/Vol] 16 mg/dL Normal 4-19 [facility] Comment on above: Order Comment: 411-1 Performed By: #### L 500.2500, L100.0500 ####[facility] [address] [place], [address] CBC-Complete Blood Cnt No Di ffon 12-24-2024 Erythrocyte distribution width (RBC) [Ratio] 15.4 % High 11.6-14.6 [facility] Comment on above: Order Comment: 411-1 Performed By: #### L 500.2500, L100.0500 ####[facility] [address] [place], [address] Hematocrit (Bld) [Volume fraction] 39.8 % Low 40-54 [facility] Comment on above: Order Comment: 411-1 Performed By: #### L 500.2500, L100.0500 ####[facility] [address] [place], [address] Hemoglobin (Bld) [Mass/Vol] 12.4 g/dL Low 13.0-16.5 [facility] Comment on above: Order Comment: 411-1 Performed By: #### L 500.2500, L100.0500 ####[facility] [address] [place], [address] MCH (RBC) [Entitic mass] 26.6 pg Low 27.0-32.0 [facility] Comment on above: Order Comment: 411-1 Performed By: #### L 500.2500, L100.0500 ####[facility] [address] [place], [address] MCHC (RBC) [Mass/Vol] 31.2 g/dL Low 32-36 [facility] Comment on above: Order Comment: 411-1 Performed By: #### L 500.2500, L100.0500 ####[facility] [address] [place], [address] MCV (RBC) [Entitic vol] 85.4 fL Normal 80-94 [facility] Comment on above: Order Comment: 411-1 Performed By: #### L 500.2500, L100.0500 ####[facility] [address] [place], [address] Platelet mean volume (Bld) [Entitic vol] 10.4 fL Normal 6.2-12.0 [facility] Comment on above: Order Comment: 411-1 Performed By: #### L 500.2500, L100.0500 ####[facility] [address] [place], [address] Platelets (Bld) [#/Vol] 290 10*3/uL Normal 150-450 [facility] Comment on above: Order Comment: 411-1 Performed By: #### L 500.2500, L100.0500 ####[facility] [address] [place], [address] RBC (Bld) [#/Vol] 4.66 10*6/uL Normal 4.6-6.2 [facility] Comment on above: Order Comment: 411-1 Performed By: #### L 500.2500, L100.0500 ####[facility] [address] [place], [address] RDW SD 48.1 fl High 35.1-43.9 [facility] Comment on above: Order Comment: 411-1 Performed By: #### L 500.2500, L100.0500 ####[facility] [address] [place], [address] WBC (Bld) [#/Vol] 16.6 10*3/uL High 4.4-11.0 [facility] Comment on above: Order Comment: 411-1 Performed By: #### L 500.2500, L100.0500 ####[facility] [address] [place], [address] Carbon dioxide, total [Moles /volume] in Central venous bloodOrdered By: Carlos Cavazos on 12-24-2024 CO2 [Moles/Vol] 23.7 mmol/L 21.0-32.0 [facility] Chloride assayOrdered By: Sharif Crouch on 12-24-2024 Chloride [Moles/Vol] 103 mmol/L 98-108 [facility] Erythrocyte distribution wid th ratioOrdered By: Carlos Cavazos on 12-24-2024 Erythrocyte distribution width (RBC) [Ratio] 15.4 % High 11.6-14.6 [facility] Erythrocyte distribution wid th standard deviationOrdered By: Carlos Cavazos on 12-24-2024 Erythrocyte distribution width (RBC) [Ratio] 48.1 fl High 35.1-43.9 [facility] Glomerular filtration rate ( GFR) estimation/1.73 sq m using serum, plasma, or whole bOrdered By: Carlos Cavazos on 12-24-2024 GFR/1.73 sq M.predicted among non-blacks MDRD (S/P/Bld) [Vol rate/Area] 93 mL/min/{1.73_m2} >60 [facility] Comment on above: mL/min/1.73m2 CKD-EP I Creatinine Equation (2020) Hematocrit Auto (Bld) [Volum e fraction]Ordered By: Carlos Cavazos on 12-24-2024 Hematocrit (Bld) [Volume fraction] 39.8 % Low 40-54 [facility] Hemoglobin measurementOrdere d By: Carlos Cavazos on 12-24-2024 Hemoglobin (Bld) [Mass/Vol] 12.4 g/dL Low 13.0-16.5 [facility] MCV (mean corpuscular volume ) determinationOrdered By: Carlos Cavazos on 12-24-2024 MCV (RBC) [Entitic vol] 85.4 fL 80-94 [facility] Mean corpuscular hemoglobin (MCH) determinationOrdered By: Carlos Cavazos on 12-24-2024 MCH (RBC) [Entitic mass] 26.6 pg Low 27.0-32.0 [facility] Mean corpuscular hemoglobin concentration (MCHC) determinationOrdered By: Carlos Cavazos on 12-24-2024 MCHC (RBC) [Mass/Vol] 31.2 g/dL Low 32-36 [facility] Mean platelet volume determi nationOrdered By: Carlos Cavazos on 12-24-2024 Platelet mean volume (Bld) [Entitic vol] 10.4 fL 6.2-12.0 [facility] Platelet countOrdered By: Sharif Crouch on 12-24-2024 Platelets (Bld) [#/Vol] 290 10*3/uL 150-450 [facility] Potassium measurement (mass/ volume)Ordered By: Carlos Cavazos on 12-24-2024 Potassium (Unsp spec) [Mass/Vol] 4.2 mmol/L 3.3-5.1 [facility] RBC Auto (Bld) [#/Vol]Ordere d By: Carlos Cavazos on 12-24-2024 RBC (Bld) [#/Vol] 4.66 10*6/uL 4.6-6.2 [facility] Serum creatinine measurement (mass/volume)Ordered By: Carlos Cavazos on 12-24-2024 Creatinine [Mass/Vol] 0.82 mg/dL 0.70-1.20 [facility] Serum glucose measurement (m ass/volume)Ordered By: Carlos Cavazos on 12-24-2024 Glucose [Mass/Vol] 88 mg/dL 70-99 [facility] Serum or plasma calcium oral urement (mass/volume)Ordered By: Carlos Cavazos on 12-24-2024 Calcium [Mass/Vol] 8.8 mg/dL 7.6-11.0 [facility] Serum or plasma urea nitroge n measurement (mass/volume)Ordered By: Carlos Cavazos on 12-24-2024 Urea nitrogen [Mass/Vol] 16 mg/dL 4-19 [facility] Sodium levelOrdered By: Moe Cavazos on 12-24-2024 Sodium [Moles/Vol] 139 mmol/L 133-145 [facility] White blood cell (WBC) count Ordered By: Carlos Cavazos on 12-24-2024 WBC (Bld) [#/Vol] 16.6 10*3/uL High 4.4-11.0 [facility] International normalized rat io (INR) calculationOrdered By: Karon Corrales on 12-22-2024 INR Coag (Bld) [Relative time] 2.6 {INR} [facility] Prothrombin Time w/INRon INR Coag (PPP) [Relative time] 2.6 {INR} Normal [facility] Comment on above: Order Comment: 411.1 Performed By: #### L 300.9930 ####[facility] [address] [facility] [place], [place], [phone] PT Coag (PPP) [Time] 28.8 s High 11.7-14.9 [facility] Comment on above: Order Comment: 411.1 Performed By: #### L 300.3900 ####[facility] [address] [facility] [place], [place], [phone] Prothrombin timeOrdered By: Karon Corrales on 12-22-2024 PT Coag (PPP) [Time] 28.8 s High 11.7-14.9 [facility] International normalized rat io (INR) calculationOrdered By: Karon Corrales on 12-18-2024 INR Coag (Bld) [Relative time] 2.4 {INR} [facility] Prothrombin Time w/INRon INR Coag (PPP) [Relative time] 2.4 {INR} Normal [facility] Comment on above: Order Comment: 411.1 Performed By: #### L 300.3900 ####[facility] [address] [place], [place], [phone] PT Coag (PPP) [Time] 26.7 s High 11.7-14.9 [facility] Comment on above: Order Comment: 411.1 Performed By: #### L 300.3900 ####[facility] [address] [place], [place], [phone] Prothrombin timeOrdered By: Karon Corrales on 12-18-2024 PT Coag (PPP) [Time] 26.7 s High 11.7-14.9 [facility] International normalized rat io (INR) calculationOrdered By: Karon Corrales on 12-15-2024 INR Coag (Bld) [Relative time] 2.3 {INR} [facility] Prothrombin Time w/INRon INR Coag (PPP) [Relative time] 2.3 {INR} Normal [facility] Comment on above: Order Comment: 411.1 Performed By: #### L 300.3900 ####[facility] [address] [place], [place], [phone] Prothrombin timeOrdered By: Karon Corrales on 12-15-2024 PT Coag (PPP) [Time] 25.7 s High 11.7-14.9 [facility] Comment on above: Order Comment: 411.1 Performed By: #### L 300.3900 ####[facility] [address] [place], [place], [phone] International normalized rat io (INR) calculationOrdered By: Carlos Cavazos on 12-11-2024 INR Coag (Bld) [Relative time] 2.2 {INR} [facility] Prothrombin Time w/INRon INR Coag (PPP) [Relative time] 2.2 {INR} Normal [facility] Comment on above: Order Comment: 411-1 Performed By: #### L 300.3900 ####[facility] [address] [place], [address] Prothrombin timeOrdered By: Carlos Cavazos on 12-11-2024 PT Coag (PPP) [Time] 24.7 s High 11.7-14.9 [facility] Comment on above: Order Comment: 411-1 Performed By: #### L 300.3900 ####[facility] [address] [place], [place], [phone] International normalized rat io (INR) calculationOrdered By: Karon Corrales on 12-08-2024 INR Coag (Bld) [Relative time] 2.2 {INR} [facility] Prothrombin Time w/INRon INR Coag (PPP) [Relative time] 2.2 {INR} Normal [facility] Comment on above: Order Comment: 411.1 Performed By: #### L 300.3900 ####[facility] [address] [place], [address] PT Coag (PPP) [Time] 25.0 s High 11.7-14.9 [facility] Comment on above: Order Comment: 411.1 Performed By: #### L 300.3900 ####[facility] [address] [place], [place], [phone] Prothrombin timeOrdered By: Karon Corrales on 12-08-2024 PT Coag (PPP) [Time] 25.0 s High 11.7-14.9 [facility] International normalized rat io (INR) calculationOrdered By: Karon Corrales on 12-04-2024 INR Coag (Bld) [Relative time] 2.3 {INR} [facility] Prothrombin Time w/INRon INR Coag (PPP) [Relative time] 2.3 {INR} Normal [facility] Comment on above: Order Comment: 411.1 Performed By: #### L 300.3900 ####[facility] [address] [place], [address] PT Coag (PPP) [Time] 25.9 s High 11.7-14.9 [facility] Comment on above: Order Comment: 411.1 Performed By: #### L 300.3900 ####[facility] [address] [place], [address] Prothrombin timeOrdered By: Karon Corrales on 12-04-2024 PT Coag (PPP) [Time] 25.9 s High 11.7-14.9 [facility] International normalized rat io (INR) calculationOrdered By: Karon Corrales on 12-02-2024 INR Coag (Bld) [Relative time] 2.5 {INR} [facility] Prothrombin Time w/INRon INR Coag (PPP) [Relative time] 2.5 {INR} Normal [facility] Comment on above: Order Comment: 411.1 Performed By: #### L 300.3900 ####[facility] [address] [place], [address] PT Coag (PPP) [Time] 27.3 s High 11.7-14.9 [facility] Comment on above: Order Comment: 411.1 Performed By: #### L 300.3900 ####[facility] [address] [place], [address] Prothrombin timeOrdered By: Karon Corrales on 12-02-2024 PT Coag (PPP) [Time] 27.3 s High 11.7-14.9 [facility] International normalized rat io (INR) calculationOrdered By: Carlos Cavazos on 12-01-2024 INR Coag (Bld) [Relative time] 2.3 {INR} [facility] Prothrombin Time w/INRon INR Coag (PPP) [Relative time] 2.3 {INR} Normal [facility] Comment on above: Order Comment: 411-1 Performed By: #### L 300.3900 ####[facility] [address] [place], [address] PT Coag (PPP) [Time] 26.0 s High 11.7-14.9 [facility] Comment on above: Order Comment: 411-1 Performed By: #### L 300.3900 ####[facility] [address] [place], [address] Prothrombin timeOrdered By: Carlos Cavazos on 12-01-2024 PT Coag (PPP) [Time] 26.0 s High 11.7-14.9 [facility] International normalized rat io (INR) calculationOrdered By: Carlos Cavazos on 11-28-2024 INR Coag (Bld) [Relative time] 3.1 {INR} [facility] Prothrombin Time w/INRon INR Coag (PPP) [Relative time] 3.1 {INR} Normal [facility] Comment on above: Order Comment: 411-1 Performed By: #### L 300.3900 ####[facility] [address] [place], [address] PT Coag (PPP) [Time] 32.8 s High 11.7-14.9 [facility] Comment on above: Order Comment: 411-1 Performed By: #### L 300.3900 ####[facility] [address] [place], [address] Prothrombin timeOrdered By: Carlos Cavazos on 11-28-2024 PT Coag (PPP) [Time] 32.8 s High 11.7-14.9 [facility] International normalized rat io (INR) calculationOrdered By: Karon Corrales on 11-27-2024 INR Coag (Bld) [Relative time] 3.3 {INR} [facility] Prothrombin Time w/INRon INR Coag (PPP) [Relative time] 3.3 {INR} Normal [facility] Comment on above: Order Comment: 411.1 Performed By: #### L 300.3900 ####[facility] [address] [place], [place], [phone] PT Coag (PPP) [Time] 34.3 s High 11.7-14.9 [facility] Comment on above: Order Comment: 411.1 Performed By: #### L 300.3900 ####[facility] [address] [place], [place], [phone] Prothrombin timeOrdered By: Karon Corrales on 11-27-2024 PT Coag (PPP) [Time] 34.3 s High 11.7-14.9 [facility] International normalized rat io (INR) calculationOrdered By: Karon Corrales on 11-24-2024 INR Coag (Bld) [Relative time] 2.8 {INR} [facility] Prothrombin Time w/INRon INR Coag (PPP) [Relative time] 2.8 {INR} Normal [facility] Comment on above: Order Comment: 411.2 Performed By: #### L 300.3900 ####[facility] [address] [place], [place], [phone] PT Coag (PPP) [Time] 30.0 s High 11.7-14.9 [facility] Comment on above: Order Comment: 411.2 Performed By: #### L 300.3900 ####[facility] [address] [place], [place], [phone] Prothrombin timeOrdered By: Karon Corrales on 11-24-2024 PT Coag (PPP) [Time] 30.0 s High 11.7-14.9 [facility] International normalized rat io (INR) calculationOrdered By: Karon Corrales on 11-20-2024 INR Coag (Bld) [Relative time] 3.0 {INR} [facility] Prothrombin Time w/INRon INR Coag (PPP) [Relative time] 3.0 {INR} Normal [facility] Comment on above: Order Comment: 411.2 Performed By: #### L 300.3900 ####[facility] [address] [place], [place], [phone] PT Coag (PPP) [Time] 32.0 s High 11.7-14.9 [facility] Comment on above: Order Comment: 411.2 Performed By: #### L 300.3900 ####[facility] [address] [place], [place], [phone] Prothrombin timeOrdered By: Karon Corrales on 11-20-2024 PT Coag (PPP) [Time] 32.0 s High 11.7-14.9 [facility] International normalized rat io (INR) calculationOrdered By: Karon Corrales on 11-17-2024 INR Coag (Bld) [Relative time] 2.9 {INR} [facility] Prothrombin Time w/INRon INR Coag (PPP) [Relative time] 2.9 {INR} Normal [facility] Comment on above: Order Comment: 411.2 Performed By: #### L 300.3900 ####[facility] [address] [place], [place], [phone] PT Coag (PPP) [Time] 30.7 s High 11.7-14.9 [facility] Comment on above: Order Comment: 411.2 Performed By: #### L 300.3900 ####[facility] [address] [place], [place], [phone] Prothrombin timeOrdered By: Karon Corrales on 11-17-2024 PT Coag (PPP) [Time] 30.7 s High 11.7-14.9 [facility] International normalized rat io (INR) calculationOrdered By: Karon Corrales on 11-13-2024 INR Coag (Bld) [Relative time] 2.2 {INR} [facility] Prothrombin Time w/INRon INR Coag (PPP) [Relative time] 2.2 {INR} Normal [facility] Comment on above: Order Comment: 411.2 Performed By: #### L 300.3900 ####[facility] [address] [place], [place], [phone] PT Coag (PPP) [Time] 24.7 s High 11.7-14.9 [facility] Comment on above: Order Comment: 411.2 Performed By: #### L 300.3900 ####[facility] [address] [place], [place], [phone] Prothrombin timeOrdered By: Karon Corrales on 11-13-2024 PT Coag (PPP) [Time] 24.7 s High 11.7-14.9 [facility] International normalized rat io (INR) calculationOrdered By: Karon Corrales on 11-10-2024 INR Coag (Bld) [Relative time] 2.6 {INR} [facility] Prothrombin Time w/INRon INR Coag (PPP) [Relative time] 2.6 {INR} Normal [facility] Comment on above: Order Comment: 411.2 Performed By: #### L 300.3900 ####[facility] [address] [place], [address] PT Coag (PPP) [Time] 28.7 s High 11.7-14.9 [facility] Comment on above: Order Comment: 411.2 Performed By: #### L 300.3900 ####[facility] [address] [place], [place], [phone] Prothrombin timeOrdered By: Karon Corrales on 11-10-2024 PT Coag (PPP) [Time] 28.7 s High 11.7-14.9 [facility] International normalized rat io (INR) calculationOrdered By: Karon Corrales on 11-06-2024 INR Coag (Bld) [Relative time] 3.1 {INR} [facility] Prothrombin Time w/INRon INR Coag (PPP) [Relative time] 3.1 {INR} Normal [facility] Comment on above: Order Comment: 411.2 Performed By: #### L 300.3900 ####[facility] [address] [place], [address] Prothrombin timeOrdered By: Karon Corrales on 11-06-2024 PT Coag (PPP) [Time] 33.0 s High 11.7-14.9 [facility] Comment on above: Order Comment: 411.2 Performed By: #### L 300.3900 ####[facility] [address] [place], [address] International normalized rat io (INR) calculationOrdered By: Carlos Cavazos on 11-03-2024 INR Coag (Bld) [Relative time] 3.0 {INR} [facility] Prothrombin Time w/INRon INR Coag (PPP) [Relative time] 3.0 {INR} Normal [facility] Comment on above: Order Comment: 411-2 Performed By: #### L 300.3900 ####[facility] [address] [place], [address] PT Coag (PPP) [Time] 31.4 s High 11.7-14.9 [facility] Comment on above: Order Comment: 411-2 Performed By: #### L 300.3900 ####[facility] [address] [place], [address] Prothrombin timeOrdered By: Carlos Cavazos on 11-03-2024 PT Coag (PPP) [Time] 31.4 s High 11.7-14.9 [facility] International normalized rat io (INR) calculationOrdered By: Karon Corrales on 10-30-2024 INR Coag (Bld) [Relative time] 2.4 {INR} [facility] Prothrombin Time w/INRon INR Coag (PPP) [Relative time] 2.4 {INR} Normal [facility] Comment on above: Performed By: #### L 300.3900 ####[facility] [address] [place], [place], [phone] PT Coag (PPP) [Time] 26.3 s High 11.7-14.9 [facility] Comment on above: Performed By: #### L 300.3900 ####[facility] [address] [place], [place], [phone] Prothrombin timeOrdered By: Karon Corrales on 10-30-2024 PT Coag (PPP) [Time] 26.3 s High 11.7-14.9 [facility] International normalized rat io (INR) calculationOrdered By: Karon Corrales on 10-27-2024 INR Coag (Bld) [Relative time] 2.2 {INR} [facility] Prothrombin Time w/INRon INR Coag (PPP) [Relative time] 2.2 {INR} Normal [facility] Comment on above: Order Comment: 411.2 Performed By: #### L 300.3900 ####[facility] [address] [place], [place], [phone] Prothrombin timeOrdered By: Karon Corrales on 10-27-2024 PT Coag (PPP) [Time] 24.5 s High 11.7-14.9 [facility] Comment on above: Order Comment: 411.2 Performed By: #### L 300.3900 ####[facility] [address] [place], [address] International normalized rat io (INR) calculationOrdered By: Karon Corrales on 10-23-2024 INR Coag (Bld) [Relative time] 2.5 {INR} [facility] Prothrombin Time w/INRon INR Coag (PPP) [Relative time] 2.5 {INR} Normal [facility] Comment on above: Order Comment: 411.2 Performed By: #### L 300.3900 ####[facility] [address] [place], [address] PT Coag (PPP) [Time] 27.9 s High 11.7-14.9 [facility] Comment on above: Order Comment: 411.2 Performed By: #### L 300.3900 ####[facility] [address] [place], [address] Prothrombin timeOrdered By: Karon Corrales on 10-23-2024 PT Coag (PPP) [Time] 27.9 s High 11.7-14.9 [facility] International normalized rat io (INR) calculationOrdered By: Karon Corrales on 10-20-2024 INR Coag (Bld) [Relative time] 3.1 {INR} [facility] Prothrombin Time w/INRon INR Coag (PPP) [Relative time] 3.1 {INR} Normal [facility] Comment on above: Order Comment: 411.2 Performed By: #### L 300.3900 ####[facility] [address] [place], [address] PT Coag (PPP) [Time] 32.8 s High 11.7-14.9 [facility] Comment on above: Order Comment: 411.2 Performed By: #### L 300.3900 ####[facility] [address] [place], [address] Prothrombin timeOrdered By: Karon Corrales on 10-20-2024 PT Coag (PPP) [Time] 32.8 s High 11.7-14.9 [facility] International normalized rat io (INR) calculationOrdered By: Karon Corrales on 10-16-2024 INR Coag (Bld) [Relative time] 2.8 {INR} [facility] Prothrombin Time w/INRon INR Coag (PPP) [Relative time] 2.8 {INR} Normal [facility] Comment on above: Order Comment: 411.2 Performed By: #### L 300.3900 ####[facility] [address] [place], [place], [phone] PT Coag (PPP) [Time] 30.4 s High 11.7-14.9 [facility] Comment on above: Order Comment: 411.2 Performed By: #### L 300.3900 ####[facility] [address] [place], [phone] Prothrombin timeOrdered By: Karon Corrales on 10-16-2024 PT Coag (PPP) [Time] 30.4 s High 11.7-14.9 [facility] International normalized rat io (INR) calculationOrdered By: Carlos Cavazos on 10-13-2024 INR Coag (Bld) [Relative time] 1.9 {INR} [facility] Prothrombin Time w/INRon INR Coag (PPP) [Relative time] 1.9 {INR} Normal [facility] Comment on above: Order Comment: 411-2 Performed By: #### L 300.3900 ####[facility] [address] [place], [place], [phone] PT Coag (PPP) [Time] 22.4 s High 11.7-14.9 [facility] Comment on above: Order Comment: 411-2 Performed By: #### L 300.3900 ####[facility] [address] [place], [place], [phone] Prothrombin timeOrdered By: Carlos Cavazos on 10-13-2024 PT Coag (PPP) [Time] 22.4 s High 11.7-14.9 [facility] International normalized rat io (INR) calculationOrdered By: Karon Corrales on 10-09-2024 INR Coag (Bld) [Relative time] 3.0 {INR} [facility] Prothrombin Time w/INRon INR Coag (PPP) [Relative time] 3.0 {INR} Normal [facility] Comment on above: Order Comment: 411.2 Performed By: #### L 300.3900 ####[facility] [address] [place], [address] Prothrombin timeOrdered By: Karon Corrales on 10-09-2024 PT Coag (PPP) [Time] 31.8 s High 11.7-14.9 [facility] Comment on above: Order Comment: 411.2 Performed By: #### L 300.3900 ####[facility] [address] [place], [address] International normalized rat io (INR) calculationOrdered By: Carlos Cavazos on 10-06-2024 INR Coag (Bld) [Relative time] 2.7 {INR} [facility] Prothrombin Time w/INRon INR Coag (PPP) [Relative time] 2.7 {INR} Normal [facility] Comment on above: Order Comment: 411-2 Performed By: #### L 300.3900 ####[facility] [address] [place], [address] PT Coag (PPP) [Time] 29.6 s High 11.7-14.9 [facility] Comment on above: Order Comment: 411-2 Performed By: #### L 300.3900 ####[facility] [address] [place], [address] Prothrombin timeOrdered By: Carlos Cavazos on 10-06-2024 PT Coag (PPP) [Time] 29.6 s High 11.7-14.9 [facility] International normalized rat io (INR) calculationOrdered By: Karon Corrales on 10-02-2024 INR Coag (Bld) [Relative time] 2.3 {INR} [facility] Prothrombin Time w/INRon INR Coag (PPP) [Relative time] 2.3 {INR} Normal [facility] Comment on above: Order Comment: 411.2 Performed By: #### L 300.3900 ####[facility] [address] [place], [address] PT Coag (PPP) [Time] 26.0 s High 11.7-14.9 [facility] Comment on above: Order Comment: 411.2 Performed By: #### L 300.3900 ####[facility] [address] [place], [address] Prothrombin timeOrdered By: Karon Corrales on 10-02-2024 PT Coag (PPP) [Time] 26.0 s High 11.7-14.9 [facility] International normalized rat io (INR) calculationOrdered By: Karon Corrales on 09-30-2024 INR Coag (Bld) [Relative time] 3.1 {INR} [facility] Prothrombin Time w/INRon INR Coag (PPP) [Relative time] 3.1 {INR} Normal [facility] Comment on above: Order Comment: 411.2 Performed By: #### L 300.3900 ####[facility] [address] [place], [address] PT Coag (PPP) [Time] 32.6 s High 11.7-14.9 [facility] Comment on above: Order Comment: 411.2 Performed By: #### L 300.3900 ####[facility] [address] [place], [place], [phone] Prothrombin timeOrdered By: Karon Corrales on 09-30-2024 PT Coag (PPP) [Time] 32.6 s High 11.7-14.9 [facility] International normalized rat io (INR) calculationOrdered By: Karon Corrales on 09-25-2024 INR Coag (Bld) [Relative time] 2.4 {INR} [facility] Prothrombin Time w/INRon INR Coag (PPP) [Relative time] 2.4 {INR} Normal [facility] Comment on above: Order Comment: 411.2 Performed By: #### L 300.3900 ####[facility] [address] [place], [address] Prothrombin timeOrdered By: Karon Corrales on 09-25-2024 PT Coag (PPP) [Time] 26.7 s High 11.7-14.9 [facility] Comment on above: Order Comment: 411.2 Performed By: #### L 300.3900 ####[facility] [address] [place], [place], [phone] International normalized rat io (INR) calculationOrdered By: Karon Corrales on 09-22-2024 INR Coag (Bld) [Relative time] 2.5 {INR} [facility] Prothrombin Time w/INRon INR Coag (PPP) [Relative time] 2.5 {INR} Normal [facility] Comment on above: Order Comment: 411.2 Performed By: #### L 300.3900 ####[facility] [address] [place], [place], [phone] Prothrombin timeOrdered By: Karon Corrales on 09-22-2024 PT Coag (PPP) [Time] 27.4 s High 11.7-14.9 [facility] Comment on above: Order Comment: 411.2 Performed By: #### L 300.3900 ####[facility] [address] [place], [address] International normalized rat io (INR) calculationOrdered By: Karon Corrales on 09-18-2024 INR Coag (Bld) [Relative time] 2.2 {INR} [facility] Prothrombin Time w/INRon INR Coag (PPP) [Relative time] 2.2 {INR} Normal [facility] Comment on above: Order Comment: 411.2 Performed By: #### L 300.3900 ####[facility] [address] [place], [place], [phone] PT Coag (PPP) [Time] 25.1 s High 11.7-14.9 [facility] Comment on above: Order Comment: 411.2 Performed By: #### L 300.3900 ####[facility] [address] [place], [place], [phone] Prothrombin timeOrdered By: Karon Corrales on 09-18-2024 PT Coag (PPP) [Time] 25.1 s High 11.7-14.9 [facility] International normalized rat io (INR) calculationOrdered By: Carlos Cavazos on 09-15-2024 INR Coag (Bld) [Relative time] 2.4 {INR} [facility] Prothrombin Time w/INRon INR Coag (PPP) [Relative time] 2.4 {INR} Normal [facility] Comment on above: Order Comment: 411-2 Performed By: #### L 300.3900 ####[facility] [address] [place], [place], [phone] Prothrombin timeOrdered By: Carlso Cavazos on 09-15-2024 PT Coag (PPP) [Time] 26.3 s High 11.7-14.9 [facility] Comment on above: Order Comment: 411-2 Performed By: #### L 300.3900 ####[facility] [address] [place], [place], [phone] International normalized rat io (INR) calculationOrdered By: Karon Corrales on 09-11-2024 INR Coag (Bld) [Relative time] 2.0 {INR} [facility] Prothrombin Time w/INRon INR Coag (PPP) [Relative time] 2.0 {INR} Normal [facility] Comment on above: Order Comment: 411.2 Performed By: #### L 300.3900 ####[facility] [address] [place], [place], [phone] PT Coag (PPP) [Time] 22.9 s High 11.7-14.9 [facility] Comment on above: Order Comment: 411.2 Performed By: #### L 300.3900 ####[facility] [address] [place], [place], [phone](715) Prothrombin timeOrdered By: Karon Corrales on 09-11-2024 PT Coag (PPP) [Time] 22.9 s High 11.7-14.9 [facility] International normalized rat io (INR) calculationOrdered By: Karon Corrales on 09-08-2024 INR Coag (Bld) [Relative time] 2.0 {INR} [facility] Prothrombin Time w/INRon INR Coag (PPP) [Relative time] 2.0 {INR} Normal [facility] Comment on above: Order Comment: 411.2 Performed By: #### L 300.3900 ####[facility] [address] [place], [place], [phone] PT Coag (PPP) [Time] 22.8 s High 11.7-14.9 [facility] Comment on above: Order Comment: 411.2 Performed By: #### L 300.3900 ####[facility] [address] [place], [place], [phone]) Prothrombin timeOrdered By: Karon Corrales on 09-08-2024 PT Coag (PPP) [Time] 22.8 s High 11.7-14.9 [facility] International normalized rat io (INR) calculationOrdered By: Carlos Cavazos on 09-04-2024 INR Coag (Bld) [Relative time] 1.7 {INR} [facility] Prothrombin Time w/INRon INR Coag (PPP) [Relative time] 1.7 {INR} Normal [facility] Comment on above: Order Comment: 411-2 Performed By: #### L 300.3900 ####[facility] [address] [place], [phone] PT Coag (PPP) [Time] 20.8 s High 11.7-14.9 [facility] Comment on above: Order Comment: 411-2 Performed By: #### L 300.3900 ####[facility] [address] [place], [phone] Prothrombin timeOrdered By: Carlos Cavazos on 09-04-2024 PT Coag (PPP) [Time] 20.8 s High 11.7-14.9 [facility] International normalized rat io (INR) calculationOrdered By: Carlos Cavazos on 09-01-2024 INR Coag (Bld) [Relative time] 2.9 {INR} [facility] Prothrombin Time w/INRon INR Coag (PPP) [Relative time] 2.9 {INR} Normal [facility] Comment on above: Order Comment: 411-2 Performed By: #### L 300.3900 ####[facility] [address] [place], [address] PT Coag (PPP) [Time] 30.7 s High 11.7-14.9 [facility] Comment on above: Order Comment: 411-2 Performed By: #### L 300.3900 ####[facility] [address] [place], [phone] Prothrombin timeOrdered By: Carlos Cavazos on 09-01-2024 PT Coag (PPP) [Time] 30.7 s High 11.7-14.[address] [facility] International normalized rat io (INR) calculationOrdered By: Carlos Cavazos on 08-28-2024 INR Coag (Bld) [Relative time] 2.4 {INR} [facility] Prothrombin Time w/INRon INR Coag (PPP) [Relative time] 2.4 {INR} Normal [facility] Comment on above: Order Comment: 411-2 Performed By: #### L 300.3900 ####[facility] [address] [place], [address] Prothrombin timeOrdered By: Carlos Cavazos on 08-28-2024 PT Coag (PPP) [Time] 26.7 s High 11.7-14.9 [facility] Comment on above: Order Comment: 411-2 Performed By: #### L 300.3900 ####[facility] [address] [place], [address] International normalized rat io (INR) calculationOrdered By: Karon Corrales on 08-25-2024 INR Coag (Bld) [Relative time] 1.8 {INR} [facility] Prothrombin Time w/INRon INR Coag (PPP) [Relative time] 1.8 {INR} Normal [facility] Comment on above: Order Comment: 411.2 Performed By: #### L 300.3900 ####[facility] [address] [place], [place], [phone] PT Coag (PPP) [Time] 21.6 s High 11.7-14.9 [facility] Comment on above: Order Comment: 411.2 Performed By: #### L 300.3900 ####[facility] [address] [place], [address] Prothrombin timeOrdered By: Karon Corrales on 08-25-2024 PT Coag (PPP) [Time] 21.6 s High 11.7-14.9 [facility] International normalized rat io (INR) calculationOrdered By: Karon Corrales on 08-21-2024 INR Coag (Bld) [Relative time] 1.7 {INR} [facility] PSA, total screeningOrdered By: Karon Corrales on 08-21-2024 Prostate Specific Antigen Screen 0.52 ng/mL 0.02-4.00 [facility] Comment on above: This test was perfor med using the [employer] tPSA method. Measured values of a patient sample can vary depending on the testing procedure used. PSA values determined on patient samples by different testing procedures cannot be used interchangeably. If there is a change in PSA assays while monitoring therapy, sequential testing should be performed to confirm baseline values. PSA,Total - Annual Screenon 08-21-2024 PSA,TOT SCREEN 0.52 ng/mL Normal 0.02-4.00 [facility] Comment on above: Order Comment: 411.2 [...] values. Performed By: #### L 501.9910, L300.3900 ####[facility] [address] [place], [address] Prothrombin Time w/INRon INR Coag (PPP) [Relative time] 1.7 {INR} Normal [facility] Comment on above: Order Comment: 411.2 Performed By: #### L 501.9910, L300.3900 ####[facility] [address] [place], [address] Prothrombin timeOrdered By: Karon Corrales on 08-21-2024 PT Coag (PPP) [Time] 20.1 s High 11.7-14.9 [facility] Comment on above: Order Comment: 411.2 Performed By: #### L 501.9910, L300.3900 ####[facility] [address] [place], [place], [phone] International normalized rat io (INR) calculationOrdered By: Karon Corrales on 08-18-2024 INR Coag (Bld) [Relative time] 3.0 {INR} [facility] Prothrombin Time w/INRon INR Coag (PPP) [Relative time] 3.0 {INR} Normal [facility] Comment on above: Order Comment: 411.2 Performed By: #### L 300.3900 ####[facility] [address] [place], [place], [phone] PT Coag (PPP) [Time] 31.4 s High 11.7-14.9 [facility] Comment on above: Order Comment: 411.2 Performed By: #### L 300.3900 ####[facility] [address] [place], [place], [phone]([phone] Prothrombin timeOrdered By: Karon Corrales on 08-18-2024 PT Coag (PPP) [Time] 31.4 s High 11.7-14.9 [facility] International normalized rat io (INR) calculationOrdered By: Karon Corrales on 08-14-2024 INR Coag (Bld) [Relative time] 2.4 {INR} [facility] Prothrombin Time w/INRon INR Coag (PPP) [Relative time] 2.4 {INR} Normal [facility] Comment on above: Order Comment: 411.2 Performed By: #### L 300.3900 ####[facility] [address] [place], [address] PT Coag (PPP) [Time] 26.6 s High 11.7-14.9 [facility] Comment on above: Order Comment: 411.2 Performed By: #### L 300.3900 ####[facility] [address] [place], [place], [phone]([phone] Prothrombin timeOrdered By: Karon Corrales on 08-14-2024 PT Coag (PPP) [Time] 26.6 s High 11.7-14.9 [facility] International normalized rat io (INR) calculationOrdered By: Karon Corrales on 08-11-2024 INR Coag (Bld) [Relative time] 3.1 {INR} [facility] Prothrombin Time w/INRon INR Coag (PPP) [Relative time] 3.1 {INR} Normal [facility] Comment on above: Order Comment: 411.2 Performed By: #### L 300.3900 ####[facility] [address] [place], [place], [phone](103) PT Coag (PPP) [Time] 32.4 s High 11.7-14.9 [facility] Comment on above: Order Comment: 411.2 Performed By: #### L 300.3900 ####[facility] [address] [place], [place], [phone] Prothrombin timeOrdered By: Karon Corrales on 08-11-2024 PT Coag (PPP) [Time] 32.4 s High 11.7-14.9 [facility] International normalized rat io (INR) calculationOrdered By: Carlos Cavazos on 08-07-2024 INR Coag (Bld) [Relative time] 2.8 {INR} [facility] Prothrombin Time w/INRon INR Coag (PPP) [Relative time] 2.8 {INR} Normal [facility] Comment on above: Order Comment: 411-2 Performed By: #### L 300.3900 ####[facility] [address] [place], [place], [phone] PT Coag (PPP) [Time] 30.3 s High 11.7-14.9 [facility] Comment on above: Order Comment: 411-2 Performed By: #### L 300.3900 ####[facility] [address] [place], [address] Prothrombin timeOrdered By: Carlos Cavazos on 08-07-2024 PT Coag (PPP) [Time] 30.3 s High 11.7-14.9 [facility] International normalized rat io (INR) calculationOrdered By: Carlos Cavazos on 08-04-2024 INR Coag (Bld) [Relative time] 1.9 {INR} [facility] Prothrombin Time w/INRon INR Coag (PPP) [Relative time] 1.9 {INR} Normal [facility] Comment on above: Order Comment: 411-2 Performed By: #### L 300.3900 ####[facility] [address] [place], [place], [phone] PT Coag (PPP) [Time] 22.1 s High 11.7-14.9 [facility] Comment on above: Order Comment: 411-2 Performed By: #### L 300.3900 ####[facility] [address] [place], [place], [phone] Prothrombin timeOrdered By: Carlos Cavazos on 08-04-2024 PT Coag (PPP) [Time] 22.1 s High 11.7-14.9 [facility] International normalized rat io (INR) calculationOrdered By: Karon Corrales on 07-31-2024 INR Coag (Bld) [Relative time] 3.2 {INR} [facility] Prothrombin Time w/INRon INR Coag (PPP) [Relative time] 3.2 {INR} Normal [facility] Comment on above: Order Comment: 411.2 Performed By: #### L 300.3900 ####[facility] [address] [place], [place], [phone] PT Coag (PPP) [Time] 33.5 s High 11.7-14.9 [facility] Comment on above: Order Comment: 411.2 Performed By: #### L 300.3900 ####[facility] [address] [place], [place], [phone] Prothrombin timeOrdered By: Karon Corrales on 07-31-2024 PT Coag (PPP) [Time] 33.5 s High 11.7-14.9 [facility] International normalized rat io (INR) calculationOrdered By: Karon Corrales on 07-28-2024 INR Coag (Bld) [Relative time] 2.7 {INR} [facility] Prothrombin Time w/INRon INR Coag (PPP) [Relative time] 2.7 {INR} Normal [facility] Comment on above: Order Comment: 411.2 Performed By: #### L 300.3900 ####[facility] [address] [place], [place], [phone] PT Coag (PPP) [Time] 29.6 s High 11.7-14.9 [facility] Comment on above: Order Comment: 411.2 Performed By: #### L 300.3900 ####[facility] [address] [place], [place], [phone] Prothrombin timeOrdered By: Karon Corrales on 07-28-2024 PT Coag (PPP) [Time] 29.6 s High 11.7-14.9 [facility] International normalized rat io (INR) calculationOrdered By: Carlos Cavazos on 07-25-2024 INR Coag (Bld) [Relative time] 3.0 {INR} [facility] Prothrombin Time w/INRon INR Coag (PPP) [Relative time] 3.0 {INR} Normal [facility] Comment on above: Order Comment: 411-2 Performed By: #### L 300.3900 ####[facility] [address] [place], [address] Prothrombin timeOrdered By: Carlos Cavazos on 07-25-2024 PT Coag (PPP) [Time] 32.1 s High 11.7-14.9 [facility] Comment on above: Order Comment: 411-2 Performed By: #### L 300.3900 ####[facility] [address] [place], [place], [phone] International normalized rat io (INR) calculationOrdered By: Karon Corrales on 07-24-2024 INR Coag (Bld) [Relative time] 3.4 {INR} [facility] Prothrombin Time w/INRon INR Coag (PPP) [Relative time] 3.4 {INR} Normal [facility] Comment on above: Order Comment: 411.2 Performed By: #### L 300.3900 ####[facility] [address] [place], [place], [phone] Prothrombin timeOrdered By: Karon Corrales on 07-24-2024 PT Coag (PPP) [Time] 35.4 s High 11.7-14.9 [facility] Comment on above: Order Comment: 411.2 Performed By: #### L 300.3900 ####[facility] [address] [place], [place], [phone] International normalized rat io (INR) calculationOrdered By: Karon Corrales on 07-21-2024 INR Coag (Bld) [Relative time] 1.6 {INR} [facility] Prothrombin Time w/INRon INR Coag (PPP) [Relative time] 1.6 {INR} Normal [facility] Comment on above: Order Comment: 411.2 Performed By: #### L 300.3900 ####[facility] [address] [place], [place], [phone] PT Coag (PPP) [Time] 19.6 s High 11.7-14.9 [facility] Comment on above: Order Comment: 411.2 Performed By: #### L 300.3900 ####[facility] [address] [place], [place], [phone]([phone] Prothrombin timeOrdered By: Karon Corrales on 07-21-2024 PT Coag (PPP) [Time] 19.6 s High 11.7-14.9 [facility] International normalized rat io (INR) calculationOrdered By: Karon Corrales on 07-17-2024 INR Coag (Bld) [Relative time] 2.9 {INR} [facility] Prothrombin Time w/INRon INR Coag (PPP) [Relative time] 2.9 {INR} Normal [facility] Comment on above: Order Comment: 411.2 Performed By: #### L 300.3900 ####[facility] [address] [place], [place], [phone] PT Coag (PPP) [Time] 31.1 s High 11.7-14.9 [facility] Comment on above: Order Comment: 411.2 Performed By: #### L 300.3900 ####[facility] [address] [place], [address] Prothrombin timeOrdered By: Karon Corrales on 07-17-2024 PT Coag (PPP) [Time] 31.1 s High 11.7-14.9 [facility] International normalized rat io (INR) calculationOrdered By: Carlos Cavazos on 07-14-2024 INR Coag (Bld) [Relative time] 2.5 {INR} [facility] Prothrombin Time w/INRon INR Coag (PPP) [Relative time] 2.5 {INR} Normal [facility] Comment on above: Order Comment: 411-2 Performed By: #### L 300.3900 ####[facility] [address] [place], [address] PT Coag (PPP) [Time] 27.5 s High 11.7-14.9 [facility] Comment on above: Order Comment: 411-2 Performed By: #### L 300.3900 ####[facility] [address] [place], [address] Prothrombin timeOrdered By: Carlos Cavazos on 07-14-2024 PT Coag (PPP) [Time] 27.5 s High 11.7-14.9 [facility] International normalized rat io (INR) calculationOrdered By: Carlos Cavazos on 07-11-2024 INR Coag (Bld) [Relative time] 2.5 {INR} [facility] Prothrombin Time w/INRon INR Coag (PPP) [Relative time] 2.5 {INR} Normal [facility] Comment on above: Performed By: #### L 300.3900 ####[facility] [address] [place], [address] PT Coag (PPP) [Time] 27.7 s High 11.7-14.9 [facility] Comment on above: Performed By: #### L 300.3900 ####[facility] [address] [place], [place], [phone] Prothrombin timeOrdered By: Carlos Cavazos on 07-11-2024 PT Coag (PPP) [Time] 27.7 s High 11.7-14.9 [facility] Prothrombin Time w/INRon INR Normal [facility] Comment on above: Order Comment: 411.2 Result Comment: QNS TUBE NOT FILLED Performed By: #### L 300.3900 ####[facility] [address] [place], [place], [phone] PROTIME Normal 11.7-14.9 [facility] Comment on above: Order Comment: 411.2 Result Comment: QNS TUBE NOT FILLED Performed By: #### L 300.3900 ####[facility] [address] [place], [place], [phone]) International normalized rat io (INR) calculationOrdered By: Kvng Crisostomo on 07-07-2024 INR Coag (Bld) [Relative time] 2.5 {INR} [facility] Prothrombin Time w/INRon INR Coag (PPP) [Relative time] 2.5 {INR} Normal [facility] [facility] Comment on above: Order Comment: 411.2 Performed By: #### L 300.3900 ####[facility] [address] [place], [address] PT Coag (PPP) [Time] 27.2 s High 11.7-14.9 [facility] Comment on above: Order Comment: 411.2 Performed By: #### L 300.3900 ####[facility] [address] [place], [address] Prothrombin timeOrdered By: Kvng Crisostomo on 07-07-2024 PT Coag (PPP) [Time] 27.2 s High 11.7-14.9 [facility] International normalized rat io (INR) calculationOrdered By: Kvng Crisostomo on 07-03-2024 INR Coag (Bld) [Relative time] 2.5 {INR} [facility] Prothrombin Time w/INRon INR Coag (PPP) [Relative time] 2.5 {INR} Normal [facility] Comment on above: Order Comment: 411.2 Performed By: #### L 300.3900 ####[facility] [address] [place], [address] PT Coag (PPP) [Time] 27.2 s High 11.7-14.9 [facility] Comment on above: Order Comment: 411.2 Performed By: #### L 300.3900 ####[facility] [address] [place], [address] Prothrombin timeOrdered By: Kvng Crisostomo on 07-03-2024 PT Coag (PPP) [Time] 27.2 s High 11.7-14.9 [facility] International normalized rat io (INR) calculationOrdered By: Kvng Crisostomo on 06-30-2024 INR Coag (Bld) [Relative time] 2.4 {INR} [facility] Prothrombin Time w/INRon INR Coag (PPP) [Relative time] 2.4 {INR} Normal [facility] Comment on above: Order Comment: 411.2 Performed By: #### L 300.3900 ####[facility] [address] [place], [address] PT Coag (PPP) [Time] 26.8 s High 11.7-14.9 [facility] Comment on above: Order Comment: 411.2 Performed By: #### L 300.3900 ####[facility] [address] [place], [address] Prothrombin timeOrdered By: Kvng Crisostomo on 06-30-2024 PT Coag (PPP) [Time] 26.8 s High 11.7-14.9 [facility] International normalized rat io (INR) calculationOrdered By: Kvng Crisostomo on 06-26-2024 INR Coag (Bld) [Relative time] 2.5 {INR} [facility] Prothrombin Time w/INRon INR Coag (PPP) [Relative time] 2.5 {INR} Normal [facility] Comment on above: Order Comment: 411.2 Performed By: #### L 300.3900 ####[facility] [address] [place], [address] PT Coag (PPP) [Time] 27.5 s High 11.7-14.9 [facility] Comment on above: Order Comment: 411.2 Performed By: #### L 300.3900 ####[facility] [address] [place], [place], [phone](467) Prothrombin timeOrdered By: Kvng Crisostomo on 06-26-2024 PT Coag (PPP) [Time] 27.5 s High 11.7-14.9 [facility] International normalized rat io (INR) calculationOrdered By: Carlos Cavazos on 06-23-2024 INR Coag (Bld) [Relative time] 2.8 {INR} [facility] Prothrombin Time w/INRon INR Coag (PPP) [Relative time] 2.8 {INR} Normal [facility] Comment on above: Order Comment: 411-2 Performed By: #### L 300.3900 ####[facility] [address] [place], [address] PT Coag (PPP) [Time] 29.7 s High 11.7-14.9 [facility] Comment on above: Order Comment: 411-2 Performed By: #### L 300.3900 ####[facility] [address] [place], [address] Prothrombin timeOrdered By: Carlos Cavazos on 06-23-2024 PT Coag (PPP) [Time] 29.7 s High 11.7-14.9 [facility] International normalized rat io (INR) calculationOrdered By: Kvng Crisostomo on 06-19-2024 INR Coag (Bld) [Relative time] 2.6 {INR} [facility] Prothrombin Time w/INRon INR Coag (PPP) [Relative time] 2.6 {INR} Normal [facility] Comment on above: Order Comment: 411.2 Performed By: #### L 300.3900 ####[facility] [address] [place], [address] PT Coag (PPP) [Time] 28.6 s High 11.7-14.9 [facility] Comment on above: Order Comment: 411.2 Performed By: #### L 300.3900 ####[facility] [address] [place], [address] Prothrombin timeOrdered By: Kvng Crisostomo on 06-19-2024 PT Coag (PPP) [Time] 28.6 s High 11.7-14.9 [facility] International normalized rat io (INR) calculationOrdered By: Kvng Crisostomo on 06-16-2024 INR Coag (Bld) [Relative time] 2.5 {INR} [facility] Prothrombin Time w/INRon INR Coag (PPP) [Relative time] 2.5 {INR} Normal [facility] Comment on above: Order Comment: 411.2 Performed By: #### L 300.3900 ####[facility] [address] [place], [address] PT Coag (PPP) [Time] 27.3 s High 11.7-14.9 [facility] Comment on above: Order Comment: 411.2 Performed By: #### L 300.3900 ####[facility] [address] [place], [address] Prothrombin timeOrdered By: Kvng Crisostomo on 06-16-2024 PT Coag (PPP) [Time] 27.3 s High 11.7-14.9 [facility] International normalized rat io (INR) calculationOrdered By: Kvng Crisostomo on 06-12-2024 INR Coag (Bld) [Relative time] 2.1 {INR} [facility] Prothrombin Time w/INRon INR Coag (PPP) [Relative time] 2.1 {INR} Normal [facility] Comment on above: Order Comment: 411.2 Performed By: #### L 300.3900 ####[facility] [address] [place], [address] PT Coag (PPP) [Time] 24.0 s High 11.7-14.9 [facility] Comment on above: Order Comment: 411.2 Performed By: #### L 300.3900 ####[facility] [address] [place], [address] Prothrombin timeOrdered By: Kvng Crisostomo on 06-12-2024 PT Coag (PPP) [Time] 24.0 s High 11.7-14.9 [facility] International normalized rat io (INR) calculationOrdered By: Carlos Cavazos on 06-09-2024 INR Coag (Bld) [Relative time] 1.5 {INR} [facility] Prothrombin Time w/INRon INR Coag (PPP) [Relative time] 1.5 {INR} Normal [facility] Comment on above: Order Comment: 411-2 Performed By: #### L 300.3900 ####[facility] [address] [place], [address] PT Coag (PPP) [Time] 18.0 s High 11.7-14.9 [facility] Comment on above: Order Comment: 411-2 Performed By: #### L 300.3900 ####[facility] [address] [place], [address] Prothrombin timeOrdered By: Carlos Cavazos on 06-09-2024 PT Coag (PPP) [Time] 18.0 s High 11.7-14.9 [facility] International normalized rat io (INR) calculationOrdered By: Kvng Crisostomo on 06-05-2024 INR Coag (Bld) [Relative time] 2.8 {INR} [facility] Prothrombin Time w/INRon INR Coag (PPP) [Relative time] 2.8 {INR} Normal [facility] Comment on above: Order Comment: 411.2 Performed By: #### L 300.3900 ####[facility] [address] [place], [address] PT Coag (PPP) [Time] 30.3 s High 11.7-14.9 [facility] Comment on above: Order Comment: 411.2 Performed By: #### L 300.3900 ####[facility] [address] [place], [address] Prothrombin timeOrdered By: Kvng Crisostomo on 06-05-2024 PT Coag (PPP) [Time] 30.3 s High 11.7-14.9 [facility] International normalized rat io (INR) calculationOrdered By: Kvng Crisostomo on 06-02-2024 INR Coag (Bld) [Relative time] 2.6 {INR} [facility] Prothrombin Time w/INRon INR Coag (PPP) [Relative time] 2.6 {INR} Normal [facility] Comment on above: Order Comment: 411.2 Performed By: #### L 300.3900 ####[facility] [address] [place], [address] PT Coag (PPP) [Time] 28.6 s High 11.7-14.9 [facility] Comment on above: Order Comment: 411.2 Performed By: #### L 300.3900 ####[facility] [address] [facility] [address] Prothrombin timeOrdered By: Kvng Crisostomo on 06-02-2024 PT Coag (PPP) [Time] 28.6 s High 11.7-14.9 [facility] International normalized rat io (INR) calculationOrdered By: Kvng Crisostomo on 05-29-2024 INR Coag (Bld) [Relative time] 2.5 {INR} [facility] Prothrombin Time w/INRon INR Coag (PPP) [Relative time] 2.5 {INR} Normal [facility] Comment on above: Order Comment: 411.2 Performed By: #### L 300.3900 ####[facility] [address] [place], [address] PT Coag (PPP) [Time] 27.7 s High 11.7-14.9 [facility] Comment on above: Order Comment: 411.2 Performed By: #### L 300.3900 ####[facility] [address] [place], [address] Prothrombin timeOrdered By: Kvng Crisostomo on 05-29-2024 PT Coag (PPP) [Time] 27.7 s High 11.7-14.9 [facility] International normalized rat io (INR) calculationOrdered By: Carlos Cavazos on 05-26-2024 INR Coag (Bld) [Relative time] 2.2 {INR} [facility] Prothrombin Time w/INRon INR Coag (PPP) [Relative time] 2.2 {INR} Normal [facility] Comment on above: Order Comment: 411-2 Performed By: #### L 300.3900 ####[facility] [address] [place], [place], [phone] PT Coag (PPP) [Time] 24.5 s High 11.7-14.9 [facility] Comment on above: Order Comment: 411-2 Performed By: #### L 300.3900 ####[facility] [address] [place], [address] Prothrombin timeOrdered By: Carlos Cavazos on 05-26-2024 PT Coag (PPP) [Time] 24.5 s High 11.7-14.9 [facility] International normalized rat io (INR) calculationOrdered By: Kvng Crisostomo on 05-22-2024 INR Coag (Bld) [Relative time] 2.8 {INR} [facility] Prothrombin Time w/INRon INR Coag (PPP) [Relative time] 2.8 {INR} Normal [facility] Comment on above: Order Comment: 411.2 Performed By: #### L 300.3900 ####[facility] [address] [place], [place], [phone] PT Coag (PPP) [Time] 30.3 s High 11.7-14.9 [facility] Comment on above: Order Comment: 411.2 Performed By: #### L 300.3900 ####[facility] [address] [place], [phone] Prothrombin timeOrdered By: Kvng Crisostomo on 05-22-2024 PT Coag (PPP) [Time] 30.3 s High 11.7-14.9 [facility] International normalized rat io (INR) calculationOrdered By: Kvng Crisostomo on 05-20-2024 INR Coag (Bld) [Relative time] 4.0 {INR} High [facility] Comment on above: CRITICAL VALUE CASEY D TO [id number]/14/25 08 Diana Srinivasan.RESULTS READ BACK BY SAME. Prothrombin Time w/INRon INR Coag (PPP) [Relative time] 4.0 {INR} Invalid Interpretation Code [facility] Comment on above: Order Comment: 411.2 Result Comment: CRIT ICAL VALUE CALLED TO [id number]/14/25 [facility] Diana Mattson.RESULTS READ BACK BY SAME. Performed By: #### L 300.3900 ####[facility] [address] [place], [place], [phone]) PT Coag (PPP) [Time] 39.9 s High 11.7-14.9 [facility] Comment on above: Order Comment: 411.2 Performed By: #### L 300.3900 ####[facility] [address] [place], [place], [phone](123) Prothrombin timeOrdered By: Kvng Cirsostomo on 05-20-2024 PT Coag (PPP) [Time] 39.9 s High 11.7-14.9 [facility] International normalized rat io (INR) calculationOrdered By: Kvng Crisostomo on 05-19-2024 INR Coag (Bld) [Relative time] 3.4 {INR} [facility] Prothrombin Time w/INRon INR Coag (PPP) [Relative time] 3.4 {INR} Normal [facility] Comment on above: Order Comment: 411.2 Performed By: #### L 300.3900 ####[facility] [address] [place], [place], [phone](811) PT Coag (PPP) [Time] 35.4 s High 11.7-14.9 [facility] Comment on above: Order Comment: 411.2 Performed By: #### L 300.3900 ####[facility] [address] [place], [place], [phone] Prothrombin timeOrdered By: Kvng Crisostomo on 05-19-2024 PT Coag (PPP) [Time] 35.4 s High 11.7-14.9 [facility] International normalized rat io (INR) calculationOrdered By: Kvng Crisostomo on 05-15-2024 INR Coag (Bld) [Relative time] 2.6 {INR} [facility] Prothrombin Time w/INRon INR Coag (PPP) [Relative time] 2.6 {INR} Normal [facility] Comment on above: Order Comment: 411.2 Performed By: #### L 300.3900 ####[facility] [address] [place], [place], [phone] PT Coag (PPP) [Time] 28.7 s High 11.7-14.9 [facility] Comment on above: Order Comment: 411.2 Performed By: #### L 300.3900 ####[facility] [address] [place], [address] Prothrombin timeOrdered By: Kvng Crisostomo on 05-15-2024 PT Coag (PPP) [Time] 28.7 s High 11.7-14.9 [facility] International normalized rat io (INR) calculationOrdered By: Carlos Cavazos on 05-12-2024 INR Coag (Bld) [Relative time] 2.1 {INR} [facility] Prothrombin Time w/INRon INR Coag (PPP) [Relative time] 2.1 {INR} Normal [facility] Comment on above: Order Comment: 411-2 Performed By: #### L 300.3900 ####[facility] [address] [place], [address] PT Coag (PPP) [Time] 24.1 s High 11.7-14.9 [facility] Comment on above: Order Comment: 411-2 Performed By: #### L 300.3900 ####[facility] [address] [place], [place], [phone] Prothrombin timeOrdered By: Carlos Cavazos on 05-12-2024 PT Coag (PPP) [Time] 24.1 s High 11.7-14.9 [facility] International normalized rat io (INR) calculationOrdered By: Kvng Crisostomo on 05-09-2024 INR Coag (Bld) [Relative time] 3.4 {INR} [facility] Prothrombin Time w/INRon INR Coag (PPP) [Relative time] 3.4 {INR} Normal [facility] Comment on above: Order Comment: 411.2 Performed By: #### L 300.3900 ####[facility] [address] [place], [place], [phone] PT Coag (PPP) [Time] 35.4 s High 11.7-14.9 [facility] Comment on above: Order Comment: 411.2 Performed By: #### L 300.3900 ####[facility] [address] [place], [place], [phone] Prothrombin timeOrdered By: Kvng Crisostomo on 05-09-2024 PT Coag (PPP) [Time] 35.4 s High 11.7-14.9 [facility] International normalized rat io (INR) calculationOrdered By: Kvng Crisostomo on 05-08-2024 INR Coag (Bld) [Relative time] 4.1 {INR} High [facility] Comment on above: CRITICAL VALUE CASEY D TO [facility]05/08/24 0950 Karen Jamison.RESULTS READ BACK BY SAME. Prothrombin Time w/INRon INR Coag (PPP) [Relative time] 4.1 {INR} Invalid Interpretation Code [facility] Comment on above: Order Comment: 411.2 Result Comment: CRIT ICAL VALUE CALLED TO [facility]05/08/24 0950 Karen Jamison.RESULTS READ BACK BY SAME. Performed By: #### L 300.3900 ####[facility] [address] [place], [address] PT Coag (PPP) [Time] 40.8 s High 11.7-14.9 [facility] Comment on above: Order Comment: 411.2 Performed By: #### L 300.3900 ####[facility] [address] [place], [address] Prothrombin timeOrdered By: Babbaljeet Andressa on 05-08-2024 PT Coag (PPP) [Time] 40.8 s High 11.7-14.9 [facility] International normalized rat io (INR) calculationOrdered By: Babbaljeet Crisostomo on 05-05-2024 INR Coag (Bld) [Relative time] 3.2 {INR} [facility] Prothrombin Time w/INRon INR Coag (PPP) [Relative time] 3.2 {INR} Normal [facility] Comment on above: Order Comment: 411.2 Performed By: #### L 300.3900 ####[facility] [address] [place], [address] PT Coag (PPP) [Time] 32.5 s High 11.7-14.9 [facility] Comment on above: Order Comment: 411.2 Performed By: #### L 300.3900 ####[facility] [address] [place], [address] Prothrombin timeOrdered By: Babbaljeet Crisostomo on 05-05-2024 PT Coag (PPP) [Time] 32.5 s High 11.7-14.9 [facility] International normalized rat io (INR) calculationOrdered By: Babbaljeet Crisostomo on 05-01-2024 INR Coag (Bld) [Relative time] 3.1 {INR} [facility] Prothrombin Time w/INRon INR Coag (PPP) [Relative time] 3.1 {INR} Normal [facility] Comment on above: Order Comment: 411.2 Performed By: #### L 300.3900 ####[facility] [address] [place], [address] PT Coag (PPP) [Time] 31.9 s High 11.7-14.9 [facility] Comment on above: Order Comment: 411.2 Performed By: #### L 300.3900 ####[facility] [address] [place], [address] Prothrombin timeOrdered By: Kvng Crisostomo on 05-01-2024 PT Coag (PPP) [Time] 31.9 s High 11.7-14.9 [facility] International normalized rat io (INR) calculationOrdered By: Carlos Cavazos on 04-28-2024 INR Coag (Bld) [Relative time] 2.6 {INR} [facility] Prothrombin Time w/INRon INR Coag (PPP) [Relative time] 2.6 {INR} Normal [facility] Comment on above: Order Comment: 411-2 Performed By: #### L 300.3900 ####[facility] [address] [place], [address] PT Coag (PPP) [Time] 27.3 s High 11.7-14.9 [facility] Comment on above: Order Comment: 411-2 Performed By: #### L 300.3900 ####[facility] [address] [place], [address] Prothrombin timeOrdered By: Carlos Cavazos on 04-28-2024 PT Coag (PPP) [Time] 27.3 s High 11.7-14.9 [facility] International normalized rat io (INR) calculationOrdered By: Kvng Crisostomo on 04-24-2024 INR Coag (Bld) [Relative time] 3.6 {INR} [facility] Prothrombin Time w/INRon INR Coag (PPP) [Relative time] 3.6 {INR} Normal [facility] Comment on above: Order Comment: 411.2 Performed By: #### L 300.3900 ####[facility] [address] [place], [address] PT Coag (PPP) [Time] 35.6 s High 11.7-14.9 [facility] Comment on above: Order Comment: 411.2 Performed By: #### L 300.3900 ####[facility] [address] [place], [address] Prothrombin timeOrdered By: Kvng rCisostomo on 04-24-2024 PT Coag (PPP) [Time] 35.6 s High 11.7-14.9 [facility] International normalized rat io (INR) calculationOrdered By: Carlos Cavazos on 04-21-2024 INR Coag (Bld) [Relative time] 2.8 {INR} [facility] Prothrombin Time w/INRon INR Coag (PPP) [Relative time] 2.8 {INR} Normal [facility] Comment on above: Order Comment: 411-2 Performed By: #### L 300.3900 ####[facility] [address] [place], [address] PT Coag (PPP) [Time] 29.4 s High 11.7-14.9 [facility] Comment on above: Order Comment: 411-2 Performed By: #### L 300.3900 ####[facility] [address] [place], [address] Prothrombin timeOrdered By: Carlos Cavazos on 04-21-2024 PT Coag (PPP) [Time] 29.4 s High 11.7-14.9 [facility] International normalized rat io (INR) calculationOrdered By: Kvng Crisostomo on 04-17-2024 INR Coag (Bld) [Relative time] 3.1 {INR} [facility] Prothrombin Time w/INRon INR Coag (PPP) [Relative time] 3.1 {INR} Normal [facility] Comment on above: Order Comment: 411.2 Performed By: #### L 300.3900 ####[facility] [address] [place], [place], [phone](354) Prothrombin timeOrdered By: Kvng Crisostomo on 04-17-2024 PT Coag (PPP) [Time] 31.3 s High 11.7-14.9 [facility] Comment on above: Order Comment: 411.2 Performed By: #### L 300.3900 ####[facility] [address] [place], [place], [phone](248) International normalized rat io (INR) calculationOrdered By: Kvng Crisostomo on 04-14-2024 INR Coag (Bld) [Relative time] 3.3 {INR} [facility] Prothrombin Time w/INRon INR Coag (PPP) [Relative time] 3.3 {INR} Normal [facility] Comment on above: Order Comment: 411.2 Performed By: #### L 300.3900 ####[facility] [address] [place], [place], [phone](088) PT Coag (PPP) [Time] 33.2 s High 11.7-14.9 [facility] Comment on above: Order Comment: 411.2 Performed By: #### L 300.3900 ####[facility] [address] [place], [place], [phone](480) Prothrombin timeOrdered By: Kvng Crisostomo on 04-14-2024 PT Coag (PPP) [Time] 33.2 s High 11.7-14.9 [facility] International normalized rat io (INR) calculationOrdered By: Kvng Crisostomo on 04-10-2024 INR Coag (Bld) [Relative time] 2.8 {INR} [facility] Prothrombin Time w/INRon INR Coag (PPP) [Relative time] 2.8 {INR} Normal [facility] Comment on above: Order Comment: 411.2 Performed By: #### L 300.3900 ####[facility] [address] [place], [address] PT Coag (PPP) [Time] 29.2 s High 11.7-14.9 [facility] Comment on above: Order Comment: 411.2 Performed By: #### L 300.3900 ####[facility] [address] [place], [address] Prothrombin timeOrdered By: Kvng Crisostomo on 04-10-2024 PT Coag (PPP) [Time] 29.2 s High 11.7-14.9 [facility] International normalized rat io (INR) calculationOrdered By: Carlos Cavazos on 04-07-2024 INR Coag (Bld) [Relative time] 2.7 {INR} [facility] Prothrombin Time w/INRon INR Coag (PPP) [Relative time] 2.7 {INR} Normal [facility] Comment on above: Order Comment: 411-2 Performed By: #### L 300.3900 ####[facility] [address] [place], [address] PT Coag (PPP) [Time] 28.1 s High 11.7-14.9 [facility] Comment on above: Order Comment: 411-2 Performed By: #### L 300.3900 ####[facility] [address] [place], [address] Prothrombin timeOrdered By: Carlos Cavazos on 04-07-2024 PT Coag (PPP) [Time] 28.1 s High 11.7-14.9 [facility] International normalized rat io (INR) calculationOrdered By: Kvng Crisostomo on 04-04-2024 INR Coag (Bld) [Relative time] 2.8 {INR} [facility] Prothrombin Time w/INRon INR Coag (PPP) [Relative time] 2.8 {INR} Normal [facility] Comment on above: Order Comment: 411.2 Performed By: #### L 300.3900 ####[facility] [address] [place], [address] PT Coag (PPP) [Time] 28.9 s High 11.7-14.9 [facility] Comment on above: Order Comment: 411.2 Performed By: #### L 300.3900 ####[facility] [address] [place], [address] Prothrombin timeOrdered By: Kvng Crisostomo on 04-04-2024 PT Coag (PPP) [Time] 28.9 s High 11.7-14.9 [facility] International normalized rat io (INR) calculationOrdered By: Carlos Cavazos on 03-31-2024 INR Coag (Bld) [Relative time] 2.6 {INR} [facility] Prothrombin Time w/INRon INR Coag (PPP) [Relative time] 2.6 {INR} Normal [facility] Comment on above: Order Comment: 411-2 Performed By: #### L 300.3900 ####[facility] [address] [place], [address] PT Coag (PPP) [Time] 27.3 s High 11.7-14.9 [facility] Comment on above: Order Comment: 411-2 Performed By: #### L 300.3900 ####[facility] [address] [place], [address] Prothrombin timeOrdered By: Carlos Cavazos on 03-31-2024 PT Coag (PPP) [Time] 27.3 s High 11.7-14.9 [facility] International normalized rat io (INR) calculationOrdered By: [employer] on 03-27-2024 INR Coag (Bld) [Relative time] 2.2 {INR} [facility] Prothrombin Time w/INRon INR Coag (PPP) [Relative time] 2.2 {INR} Normal [facility] Comment on above: Order Comment: 411.2 Performed By: #### L 300.3900 ####[facility] [address] [place], [address] PT Coag (PPP) [Time] 24.3 s High 11.7-14.9 [facility] Comment on above: Order Comment: 411.2 Performed By: #### L 300.3900 ####[facility] [address] [place], [address] Prothrombin timeOrdered By: [employer] on 03-27-2024 PT Coag (PPP) [Time] 24.3 s High 11.7-14.9 [facility] [employer] normalized rat io (INR) calculationOrdered By: Kvng Crisostomo on 03-24-2024 INR Coag (Bld) [Relative time] 1.8 {INR} [facility] Prothrombin Time w/INRon INR Coag (PPP) [Relative time] 1.8 {INR} Normal [facility] Comment on above: Order Comment: 411.2 Performed By: #### L [id number] ####[facility] [address] [place], [address] PT Coag (PPP) [Time] 20.7 s High 11.7-14.9 [facility] Comment on above: Order Comment: 411.2 Performed By: #### L [id number] ####[facility] [address] [place], [address] Prothrombin timeOrdered By: Kvng Crisostomo on 03-24-2024 PT Coag (PPP) [Time] 20.7 s High 11.7-14.9 [facility] normalized rat io (INR) calculationOrdered By: [employer] on 03-20-2024 INR Coag (Bld) [Relative time] 1.8 {INR} [facility] Prothrombin Time w/INRon INR Coag (PPP) [Relative time] 1.8 {INR} Normal [facility] Comment on above: Order Comment: 411.2 Performed By: #### L [id number] ####[facility] [address] [place], [address] PT Coag (PPP) [Time] 20.9 s High 11.7-14.9 [facility] Comment on above: Order Comment: 411.2 Performed By: #### L [id number] ####[facility] [address] [place], [address] Prothrombin timeOrdered By: [employer] on 03-20-2024 PT Coag (PPP) [Time] 20.9 s High 11.7-14.9 [facility] normalized rat io (INR) calculationOrdered By: Kvng Crisostomo on 03-19-2024 INR Coag (Bld) [Relative time] 2.4 {INR} [facility] Prothrombin Time w/INRon INR Coag (PPP) [Relative time] 2.4 {INR} Normal [facility] Comment on above: Order Comment: 411.2 Performed By: #### L [id number] ####[facility] [address] [place], [address] PT Coag (PPP) [Time] 26.4 s High 11.7-14.9 [facility] Comment on above: Order Comment: 411.2 Performed By: #### L [id number] ####[facility] [address] [place], [address] Prothrombin timeOrdered By: Kvng Crisostomo on 03-19-2024 PT Coag (PPP) [Time] 26.4 s High 11.7-14.9 [facility] normalized rat io (INR) calculationOrdered By: [employer] on 03-18-2024 INR Coag (Bld) [Relative time] 3.2 {INR} [facility] Prothrombin timeOrdered By: [employer] on 03-18-2024 PT Coag (PPP) [Time] 32.3 s High 11.7-14.9 [facility] normalized rat io (INR) calculationOrdered By: [employer] on 03-17-2024 INR Coag (Bld) [Relative time] 3.6 {INR} [facility] Prothrombin timeOrdered By: [employer] on 03-17-2024 PT Coag (PPP) [Time] 35.7 s High 11.7-14.9 [facility] normalized rat io (INR) calculationOrdered By: Carlos Cavazos on 03-14-2024 INR Coag (Bld) [Relative time] 3.5 {INR} [facility] Prothrombin timeOrdered By: Carlos Cavazos on 03-14-2024 PT Coag (PPP) [Time] 35.0 s High 11.7-14.9 [facility] normalized rat io (INR) calculationOrdered By: [employer] on 03-13-2024 INR Coag (Bld) [Relative time] 3.2 {INR} [facility] Prothrombin timeOrdered By: [employer] on 03-13-2024 PT Coag (PPP) [Time] 32.2 s High 11.7-14.9 [facility] Office Visiton 09-13-2023 Follow-up visit [id number] GurpreetTamie 1950 M [facility] Provider Department Center 09/13/2023 [id number] BUCK [facility] None Family History Problem Relation Age of Onset Heart disease Father Cancer Mother Family Status - Relation Status Age at Father Mother Level of Service:69763 DE OFFICE/OUTPATIENT ESTABLISHED MOD MDM 30 MIN Reason for Visit and Comments: left flank pain [Other] - 8/10 pain when touched Normal [facility] Progress Noteon 09-13-2023 Progress Note Walt Moran [...] Hydrocephalus, adult (CMS/HCC) (HCC) Kidney stone Neuropathy TAKE OFF WORKER (ventriculoperitoneal) shunt status Past Surgical History: Procedure [...] (more content not included)... Normal [facility] CT ABDOMEN PELVIS WO IV CONT Kelly 09-07-2023 CT ABDOMEN PELVIS WO IV CONTRAST [facility] 1950 [id number] Exam Date/Time: 09/06/2023 18:14 Procedure: CT ABDOMEN [...] a kidney stone; pt has a hernia [place] [id number] 36 Lm on daughters vm t o advise them to call the number for the technical publications manager to get clarification, and to call back with further questions [place] [id number] 36 Yes, they will need to call the number given to them. [facility] 36 Please advise [address] 08-21-2023 36 Name of caller: Zion holt Contact phone number: [phone] Relationship to Patient: patient Provider: MD Quinn Practice: [facility]rology Chief Complaint/Reason for Call: [...] to reach out to call Maury Cedeño Emergency Planning And Response Manager at [facility] [phone] to get clarifications. TEA did reach back out to [facility] and advised and provider Maury's #. Please advise Best time of day caller can be reached: Any Patient advised that office/PCP has 24-48 business hours to return their call: N/A Normal [facility] Laboratory - CoagulationOrde red By: Carlos Cavazos on 08-21-2023 INR Coag (Bld) [Relative time] 2.7 {INR} [facility] PT Coag (PPP) [Time] 28.9 s 11.7-14.9 [facility] Office Visiton 08-13-2023 Follow-up visit [id number] Tamie Sifuentes cheng R 1950 M [place] Provider Department Center 08/13/2023 [id number] BUCK [facility] None Family History Problem Relation Age of Onset Heart disease Father Cancer Mother Family Status - Relation Status Age at Father Mother Level of Service:98983 DE OFFICE/OUTPATIENT NEW MODERATE MDM 45 MINUTES Reason for Visit and Comments: New Patient [542] - Bilateral flank pain, hx of kidney stones Nephrolithiasis [631649] Normal [facility] Progress Noteon 08-13-2023 Progress Note Walt Moran [...] Hydrocephalus, adult (CMS/HCC) (HCC) Kidney stone Neuropathy TAKE OFF WORKER (ventriculoperitoneal) shunt status Past Surgical History: Past [...] (more content not included)... Normal [facility] No Panel InformationOrdered By: Carlos Cavazos on 08-03-2023 Levetiracetam (Keppra) Level 32.4 ug/mL 10.0-40.0 [facility] Comment on above: Performed at: [address] [id number] Director: Alpesh Vázquez MD, Phone: [phone] Basophil percentageOrdered B y: Carlos Cavazos on 07-20-2023 Chloride [Moles/Vol] 106 mmol/L 98-107 [facility] Glucose [Mass/Vol] 98 mg/dL 74-106 [facility] Hemoglobin (Bld) [Mass/Vol] 12.5 g/dL 13.0-16.5 [facility] Potassium [Moles/Vol] 4.3 mmol/L 3.5-5.1 [facility] Sodium [Moles/Vol] 135 mmol/L 136-145 [facility] WBC (Bld) [#/Vol] 13.0 10*3/uL 4.4-11.0 [facility] Determination of erythrocyte mean corpuscular volume (MCV)Ordered By: Carlos Cavazos on 07-20-2023 MCV (RBC) [Entitic vol] 86.2 fL 80-94 [facility] Erythrocyte distribution wid th ratioOrdered By: Carlos Cavazos on 07-20-2023 Erythrocyte distribution width (RBC) [Ratio] 15.3 % 11.6-14.6 [facility] Erythrocyte distribution wid th standard deviationOrdered By: Carlos Cavazos on 07-20-2023 Erythrocyte distribution width (RBC) [Entitic vol] 48.1 fL 35.1-43.9 [facility] Hematocrit Auto (Bld) [Volum e fraction]Ordered By: Carlos Cavazos on 07-20-2023 Hematocrit (Bld) [Volume fraction] 39.9 % 40-54 [facility] Laboratory - Chemistry and C hemistry - challengeOrdered By: Carlos Cavazos on 07-20-2023 CO2 [Moles/Vol] 24.0 mmol/L 21.0-32.0 [facility] Urea nitrogen/Creatinine [Mass ratio] 24.6 mg/mg 10-20 [facility] Laboratory - Hematology and Cell countsOrdered By: Carlos Cavazos on 07-20-2023 MCH (RBC) [Entitic mass] 27.0 pg 27.0-32.0 [facility] MCHC (RBC) [Mass/Vol] 31.3 g/dL 32-36 [facility] Platelet mean volume (Bld) [Entitic vol] 10.7 fL 6.2-12.0 [facility] Platelets (Bld) [#/Vol] 260 10*3/uL 150-450 [facility] No Panel InformationOrdered By: Carlos Cavazos on 07-20-2023 Estimated GFR (MDRD) Amer 114 mL/min >60 [facility] Comment on above: GFR Calc Estimated GFR (MDRD) Non-Af Amer 94 mL/min >60 [facility] Comment on above: Non- GFR Calc RBC Auto (Bld) [#/Vol]Ordere d By: Carlos Cavazos on 07-20-2023 RBC (Bld) [#/Vol] 4.63 10*6/uL 4.6-6.2 [facility] Serum or plasma calcium oral urement (mass/volume)Ordered By: Carlos Cavazos on 07-20-2023 Calcium [Mass/Vol] 8.6 mg/dL 8.5-10.1 [facility] Serum or plasma creatinine m easurement (mass/volume)Ordered By: Carlos Cavazos on 07-20-2023 Creatinine [Mass/Vol] 0.85 mg/dL 0.70-1.30 [facility] Comment on above: The validity of the calculated GFR & GFRAA in patients over 70 years has not been determined. Clinical correlation is essential. Serum or plasma urea nitroge n measurement (mass/volume)Ordered By: Carlos Cavazos on 07-20-2023 Urea nitrogen [Mass/Vol] 21 mg/dL 7-18 [facility] Thin prep Papanicolaou smear with manual screeningOrdered By: Carlos Cavazos on 07-20-2023 Thin prep Papanicolaou smear with manual screening 5 5-15 [facility] Basophil percentageOrdered B y: Carlos Cavazos on 07-18-2023 Chloride [Moles/Vol] 102 mmol/L 98-107 [facility] Glucose [Mass/Vol] 96 mg/dL 74-106 [facility] Hemoglobin (Bld) [Mass/Vol] 12.3 g/dL 13.0-16.5 [facility] Potassium [Moles/Vol] 4.2 mmol/L 3.5-5.1 [facility] Sodium [Moles/Vol] 136 mmol/L 136-145 [facility] WBC (Bld) [#/Vol] 14.7 10*3/uL 4.4-11.0 [facility] Determination of erythrocyte mean corpuscular volume (MCV)Ordered By: Carlos Cavazos on 07-18-2023 MCV (RBC) [Entitic vol] 85.4 fL 80-94 [facility] Erythrocyte distribution wid th ratioOrdered By: Carlos Cavazos on 07-18-2023 Erythrocyte distribution width (RBC) [Ratio] 15.1 % 11.6-14.6 [facility] Erythrocyte distribution wid th standard deviationOrdered By: Carlos Cavazos on 07-18-2023 Erythrocyte distribution width (RBC) [Entitic vol] 47.3 fL 35.1-43.9 [facility] Hematocrit Auto (Bld) [Volum e fraction]Ordered By: Carlos Cavazos on 07-18-2023 Hematocrit (Bld) [Volume fraction] 39.3 % 40-54 [facility] Laboratory - Chemistry and C hemistry - challengeOrdered By: Carlos Cavazos on 07-18-2023 CO2 [Moles/Vol] 27.0 mmol/L 21.0-32.0 [facility] Urea nitrogen/Creatinine [Mass ratio] 24.4 mg/mg 10-20 [facility] Laboratory - Hematology and Cell countsOrdered By: Carlos Cavazos on 07-18-2023 MCH (RBC) [Entitic mass] 26.7 pg 27.0-32.0 [facility] MCHC (RBC) [Mass/Vol] 31.3 g/dL 32-36 [facility] Platelet mean volume (Bld) [Entitic vol] 10.3 fL 6.2-12.0 [facility] Platelets (Bld) [#/Vol] 288 10*3/uL 150-450 [facility] No Panel InformationOrdered By: Carlos Cavazos on 07-18-2023 Estimated GFR (MDRD) Amer 113 mL/min >60 [facility] Comment on above: GFR Calc Estimated GFR (MDRD) Non-Af Amer 93 mL/min >60 [facility] Comment on above: Non- GFR Calc RBC Auto (Bld) [#/Vol]Ordere d By: Carlos Cavazos on 07-18-2023 RBC (Bld) [#/Vol] 4.60 10*6/uL 4.6-6.2 [facility] Serum or plasma calcium oral urement (mass/volume)Ordered By: Carlos Cavazos on 07-18-2023 Calcium [Mass/Vol] 8.9 mg/dL 8.5-10.1 [facility] Serum or plasma creatinine m easurement (mass/volume)Ordered By: Carlos Cavazos on 07-18-2023 Creatinine [Mass/Vol] 0.86 mg/dL 0.70-1.30 [facility] Comment on above: The validity of the calculated GFR & GFRAA in patients over 70 years has not been determined. Clinical correlation is essential. Serum or plasma urea nitroge n measurement (mass/volume)Ordered By: Carlos Cavazos on 07-18-2023 Urea nitrogen [Mass/Vol] 21 mg/dL 7-18 [facility] Thin prep Papanicolaou smear with manual screeningOrdered By: Carlos Cavazos on 07-18-2023 Thin prep Papanicolaou smear with manual screening 7 5-15 [facility] Basophil percentageOrdered B y: Carlos Cavazos on 07-17-2023 Basophil percentage 0-5 SEEN /hpf 0-5 [facility] Bilirubin Test strip Ql (U)O rdered By: Carlos Cavazos on 07-17-2023 Bilirubin Ql (U) Negative Negative [facility] Calcium oxalate crystals det ection in urine sediment by light microscopyOrdered By: Carlos Cavazos on 07-17-2023 Calcium oxalate crystals LM Ql (Urine sed) 1+ /hpf [facility] Culture, urineOrdered By: Sharif Crouch on 07-17-2023 Bacteria identified Cx Nom (U) Positive [facility] Ketones Test strip Ql (U)Ord ered By: Carlos Cavazos on 07-17-2023 Ketones Ql (U) Negative Negative [facility] Mucus LM Ql (Urine sed)Order ed By: Carlos Cavazos on 07-17-2023 Mucus Ql (Urine sed) 0 SEEN /hpf [facility] Nitrite Test strip Ql (U)Ord ered By: Carlos Cavazos on 07-17-2023 Nitrite Ql (U) Negative Negative [facility] No Panel InformationOrdered By: Carlos Cavazos on 07-17-2023 Urine RBC 0 SEEN /hpf 0-5 [facility] Protein Test strip Ql (U)Ord ered By: Carlos Cavazos on 07-17-2023 Protein Ql (U) Negative Negative [facility] Squamous epithelial cells de tection in urine sediment by light microscopyOrdered By: Carlos Cavazos on 07-17-2023 Epithelial cells.squamous LM Ql (Urine sed) 0-5 SEEN /hpf 0-5 [facility] Urine blood detectionOrdered By: Carlos Cavazos on 07-17-2023 RBC Ql (U) Negative Negative [facility] Urine clarityOrdered By: Ted Cavazos on 07-17-2023 Clarity (U) Clear Clear [facility] Urine color determinationOrd ered By: Carlos Cavazos on 07-17-2023 Color (U) Yellow Yellow [facility] Urine glucose detectionOrder ed By: Carlos Cavazos on 07-17-2023 Glucose Ql (U) Normal mg/dl Normal [facility] Urine leukocyte esterase det ection by dipstickOrdered By: Carlos Cavazos on 07-17-2023 Leukocyte esterase Test strip Ql (U) 25 /ul Negative [facility] Urine pHOrdered By: Carlos flores on 07-17-2023 pH (U) 6.0 [pH] 5.0 - 8.0 [facility] Urine sediment bacteria coun t by microscopy (number/high power field)Ordered By: Carlos Cavazos on 07-17-2023 Bacteria LM.HPF (Urine sed) [#/Area] 0 /[HPF] None Seen [facility] Urine specific gravity measu rementOrdered By: Carlos Cavazos on 07-17-2023 Specific gravity (U) [Rel density] 1.020 1.002-1.030 [facility] Urine urobilinogen measureme ntOrdered By: Carlos Cavazos on 07-17-2023 Urobilinogen Ql (U) Normal mg/dl Normal [facility] Absolute lymphocyte countOrd ered By: Carlos Cavazos on 07-16-2023 Lymphocytes Auto (Unsp spec) [#/Vol] 6.02 10*3/uL 0.83-4.51 [facility] Automated lymphocyte count a s percentage of total leukocytesOrdered By: Carlos Cavazos on 07-16-2023 Lymphocytes/100 WBC Auto (Unsp spec) 49.1 % 19-41 [facility] Basophil percentageOrdered B y: Carlos Cavazos on 07-16-2023 Basophils/100 WBC (Bld) 0.6 % 0-1 [facility] Chloride [Moles/Vol] 105 mmol/L 98-107 [facility] Eosinophils/100 WBC (Bld) 2.0 % 0-5 [facility] Glucose [Mass/Vol] 93 mg/dL 74-106 [facility] Hemoglobin (Bld) [Mass/Vol] 12.1 g/dL 13.0-16.5 [facility] Monocytes/100 WBC (Bld) 5.3 % 0-10 [facility] Neutrophils (Bld) [#/Vol] 5.2 10*3/uL 2.0-7.7 [facility] Neutrophils/100 WBC (Bld) 42.8 % 47-70 [facility] Potassium [Moles/Vol] 4.3 mmol/L 3.5-5.1 [facility] Sodium [Moles/Vol] 138 mmol/L 136-145 [facility] WBC (Bld) [#/Vol] 12.3 10*3/uL 4.4-11.0 [facility] Blood manual differential co mment interpretation (narrative result)Ordered By: Carlos Cavazos on 07-16-2023 Manual differential comment Shemar (Bld) [Interp] SCANNED [facility] Determination of erythrocyte mean corpuscular volume (MCV)Ordered By: Carlos Cavazos on 07-16-2023 MCV (RBC) [Entitic vol] 86.8 fL 80-94 [facility] Erythrocyte distribution wid th ratioOrdered By: Carlos Cavazos on 07-16-2023 Erythrocyte distribution width (RBC) [Ratio] 15.3 % 11.6-14.6 [facility] Erythrocyte distribution wid th standard deviationOrdered By: Carlos Cavazos on 07-16-2023 Erythrocyte distribution width (RBC) [Entitic vol] 48.9 fL 35.1-43.9 [facility] Hematocrit Auto (Bld) [Volum e fraction]Ordered By: Carlos Cavazos on 07-16-2023 Hematocrit (Bld) [Volume fraction] 38.7 % 40-54 [facility] Immature granulocytes/100 WB C Auto (Bld)Ordered By: Carlos Cavazos on 07-16-2023 Immature granulocytes/100 WBC (Bld) 0.200 % 0.0-0.9 [facility] Comment on above: IG% - Immature Granu locytes (promyelocytes, myelocytes and metamyelocytes) > 1% indicates that a LEFT SHIFT is Present. Laboratory - Chemistry and C hemistry - challengeOrdered By: Carlos Cavazos on 07-16-2023 CO2 [Moles/Vol] 25.0 mmol/L 21.0-32.0 [facility] Urea nitrogen/Creatinine [Mass ratio] 21.0 mg/mg 10-20 [facility] Laboratory - CoagulationOrde red By: Carlos Cavazos on 07-16-2023 INR Coag (Bld) [Relative time] 2.4 {INR} [facility] PT Coag (PPP) [Time] 25.7 s 11.7-14.9 [facility] Laboratory - Hematology and Cell countsOrdered By: Carlos Cavazos on 07-16-2023 MCH (RBC) [Entitic mass] 27.1 pg 27.0-32.0 [facility] MCHC (RBC) [Mass/Vol] 31.3 g/dL 32-36 [facility] Nucleated RBC/100 WBC (Bld) [Ratio] 0 % 0-5 [facility] Platelet mean volume (Bld) [Entitic vol] 10.5 fL 6.2-12.0 [facility] Platelets (Bld) [#/Vol] 289 10*3/uL 150-450 [facility] No Panel InformationOrdered By: Carlos Cavazos on 07-16-2023 Estimated GFR (MDRD) Amer 106 mL/min >60 [facility] Comment on above: GFR Calc Estimated GFR (MDRD) Non-Af Amer 88 mL/min >60 [facility] Comment on above: Non- GFR Calc Reactive Lymphocytes 1+ [facility] RBC Auto (Bld) [#/Vol]Ordere d By: Carlos Cavazos on 07-16-2023 RBC (Bld) [#/Vol] 4.46 10*6/uL 4.6-6.2 [facility] Serum or plasma calcium oral urement (mass/volume)Ordered By: Carlos Cavazos on 07-16-2023 Calcium [Mass/Vol] 9.0 mg/dL 8.5-10.1 [facility] Serum or plasma creatinine m easurement (mass/volume)Ordered By: Carlos Cavazos on 07-16-2023 Creatinine [Mass/Vol] 0.90 mg/dL 0.70-1.30 [facility] Comment on above: The validity of the calculated GFR & GFRAA in patients over 70 years has not been determined. Clinical correlation is essential. Serum or plasma urea nitroge n measurement (mass/volume)Ordered By: Carlos Cavazos on 07-16-2023 Urea nitrogen [Mass/Vol] 19 mg/dL 7-18 [facility] Thin prep Papanicolaou smear with manual screeningOrdered By: Carlos Cavazos on 07-16-2023 Thin prep Papanicolaou smear with manual screening 8 5-15 [facility] Absolute lymphocyte countOrd ered By: Carlos Cavazos on 07-13-2023 Lymphocytes Auto (Unsp spec) [#/Vol] 5.44 10*3/uL 0.83-4.51 [facility] Automated lymphocyte count a s percentage of total leukocytesOrdered By: Carlos Cavazos on 07-13-2023 Lymphocytes/100 WBC Auto (Unsp spec) 47.3 % 19-41 [facility] Basophil percentageOrdered B y: Carlos Cavazos on 07-13-2023 Basophils/100 WBC (Bld) 0.4 % 0-1 [facility] Chloride [Moles/Vol] 107 mmol/L 98-107 [facility] Eosinophils/100 WBC (Bld) 1.7 % 0-5 [facility] Glucose [Mass/Vol] 96 mg/dL 74-106 [facility] Hemoglobin (Bld) [Mass/Vol] 13.5 g/dL 13.0-16.5 [facility] Monocytes/100 WBC (Bld) 4.3 % 0-10 [facility] Neutrophils (Bld) [#/Vol] 5.3 10*3/uL 2.0-7.7 [facility] Neutrophils/100 WBC (Bld) 46.0 % 47-70 [facility] Potassium [Moles/Vol] 4.0 mmol/L 3.5-5.1 [facility] Sodium [Moles/Vol] 139 mmol/L 136-145 [facility] WBC (Bld) [#/Vol] 11.5 10*3/uL 4.4-11.0 [facility] Determination of erythrocyte mean corpuscular volume (MCV)Ordered By: Carlos Cavazos on 07-13-2023 MCV (RBC) [Entitic vol] 86.1 fL 80-94 [facility] Erythrocyte distribution wid th ratioOrdered By: Carlos Cavazos on 07-13-2023 Erythrocyte distribution width (RBC) [Ratio] 15.2 % 11.6-14.6 [facility] Erythrocyte distribution wid th standard deviationOrdered By: Carlos Cavazos on 07-13-2023 Erythrocyte distribution width (RBC) [Entitic vol] 48.0 fL 35.1-43.9 [facility] Hematocrit Auto (Bld) [Volum e fraction]Ordered By: Carlos Cavazos on 07-13-2023 Hematocrit (Bld) [Volume fraction] 42.2 % 40-54 [facility] Immature granulocytes/100 WB C Auto (Bld)Ordered By: Carlos Cavazos on 07-13-2023 Immature granulocytes/100 WBC (Bld) 0.300 % 0.0-0.9 [facility] Comment on above: IG% - Immature Granu locytes (promyelocytes, myelocytes and metamyelocytes) > 1% indicates that a LEFT SHIFT is Present. Laboratory - Chemistry and C hemistry - challengeOrdered By: Carlos Cavazos on 07-13-2023 CO2 [Moles/Vol] 26.0 mmol/L 21.0-32.0 [facility] Urea nitrogen/Creatinine [Mass ratio] 21.8 mg/mg 10-20 [facility] Laboratory - Hematology and Cell countsOrdered By: Carlos Cavazos on 07-13-2023 MCH (RBC) [Entitic mass] 27.6 pg 27.0-32.0 [facility] MCHC (RBC) [Mass/Vol] 32.0 g/dL 32-36 [facility] Nucleated RBC/100 WBC (Bld) [Ratio] 0 % 0-5 [facility] Platelet mean volume (Bld) [Entitic vol] 10.1 fL 6.2-12.0 [facility] Platelets (Bld) [#/Vol] 279 10*3/uL 150-450 [facility] No Panel InformationOrdered By: Carlos Cavazos on 07-13-2023 Estimated GFR (MDRD) Amer 118 mL/min >60 [facility] Comment on above: GFR Calc Estimated GFR (MDRD) Non-Af Amer 98 mL/min >60 [facility] Comment on above: Non- GFR Calc Levetiracetam (Keppra) Level 25.5 ug/mL 10.0-40.0 [facility] Comment on above: Performed at: [address] [id number] Director: Alpesh Vázquez MD, Phone: [phone] RBC Auto (Bld) [#/Vol]Ordere d By: Carlos Cavazos on 07-13-2023 RBC (Bld) [#/Vol] 4.90 10*6/uL 4.6-6.2 [facility] Serum or plasma calcium oral urement (mass/volume)Ordered By: Carlos Cavazos on 07-13-2023 Calcium [Mass/Vol] 9.1 mg/dL 8.5-10.1 [facility] Serum or plasma creatinine m easurement (mass/volume)Ordered By: Carlos Cavazos on 07-13-2023 Creatinine [Mass/Vol] 0.82 mg/dL 0.70-1.30 [facility] Comment on above: The validity of the calculated GFR & GFRAA in patients over 70 years has not been determined. Clinical correlation is essential. Serum or plasma urea nitroge n measurement (mass/volume)Ordered By: Carlos Cavazos on 07-13-2023 Urea nitrogen [Mass/Vol] 18 mg/dL 7-18 [facility] Thin prep Papanicolaou smear with manual screeningOrdered By: Carlos Cavazos on 07-13-2023 Thin prep Papanicolaou smear with manual screening 6 5-15 [facility] No Panel InformationOrdered By: Carlos Cavazos on 07-12-2023 Valproic Acid (Depakene) Level < 3 ug/mL 50-100 [facility] Laboratory - CoagulationOrde red By: Carlos Cavazos on 07-05-2023 INR Coag (Bld) [Relative time] 2.4 {INR} [facility] PT Coag (PPP) [Time] 26.3 s 11.7-14.9 [facility] - CoagulationOrde red By: Carlos Cavazos on 07-02-2023 INR Coag (Bld) [Relative time] 1.5 {INR} [facility] PT Coag (PPP) [Time] 18.5 s 11.7-14.9 [facility] - CoagulationOrde red By: Carlos Cavazos on 06-28-2023 INR Coag (Bld) [Relative time] 1.7 {INR} [facility] PT Coag (PPP) [Time] 20.5 s 11.7-14.9 [facility] 36on 06-25-2023 36 [facility] called in stating appt scheduled 07/10/23 [place] has to be made further out, pt being transported by cot. Changed appt to 08/13/23 per [facility] only avail time for transport, first avail with DR Buck at 10:[address] [facility] - CoagulationOrde red By: Carlos Cavazos on 06-25-2023 INR Coag (Bld) [Relative time] 3.8 {INR} [facility] PT Coag (PPP) [Time] 38.2 s 11.7-14.9 [facility] - CoagulationOrde red By: Carlos Cavazos on 06-21-2023 INR Coag (Bld) [Relative time] 3.2 {INR} [facility] PT Coag (PPP) [Time] 32.9 s 11.7-14.9 [facility] No Panel InformationOrdered By: Carlos Cavazos on 06-13-2023 Valproic Acid (Depakene) Level < 3 ug/mL 50-100 [facility] - CoagulationOrde red By: Carlos Cavazos on 06-06-2023 PT Coag (PPP) [Time] 30.5 s 11.7-14.9 [facility] Platelet poor plasma interna tional normalized ratio (INR)Ordered By: Carlos Cavazos on 06-06-2023 INR Coag (PPP) [Relative time] 2.9 {INR} [facility] International normalized rat io (INR) calculationOrdered By: Carlos Cavazos on 05-23-2023 INR Coag (PPP) [Relative time] 2.6 {INR} [facility] - CoagulationOrde red By: Carlos Cavazos on 05-23-2023 PT Coag (PPP) [Time] 27.7 s 11.7-14.9 [facility] - CoagulationOrde red By: Carlos Cavazos on 05-09-2023 PT Coag (PPP) [Time] 24.1 s 11.7-14.9 [facility] Whole blood international no rmalized ratio (INR)Ordered By: Carlos Cavazos on 05-09-2023 INR Coag (Bld) [Relative time] 2.1 {INR} [facility] - CoagulationOrde red By: Carlos Cavazos on 04-23-2023 PT Coag (PPP) [Time] 26.4 s 11.7-14.9 [facility] Whole blood international no rmalized ratio (INR)Ordered By: Carlos Cavazos on 04-23-2023 INR Coag (Bld) [Relative time] 2.4 {INR} [facility] INR in Blood by Coagulation assayOrdered By: Carlos Cavazos on 04-09-2023 INR Coag (Bld) [Relative time] 2.1 {INR} [facility] - CoagulationOrde red By: Carlos Cavazos on 04-09-2023 PT Coag (PPP) [Time] 23.9 s 11.7-14.9 [facility] INR in Blood by Coagulation assayOrdered By: Carlos Cavazos on 04-02-2023 INR Coag (Bld) [Relative time] 2.2 {INR} [facility] - CoagulationOrde red By: Carlos Cavazos on 04-02-2023 PT Coag (PPP) [Time] 24.5 s 11.7-14.9 [facility] INR in Blood by Coagulation assayOrdered By: Carlos Cavazos on 03-26-2023 INR Coag (Bld) [Relative time] 1.7 {INR} [facility] - CoagulationOrde red By: Carlos Cavazos on 03-26-2023 PT Coag (PPP) [Time] 19.9 s 11.7-14.9 [facility] INR in Blood by Coagulation assayOrdered By: Carlos Cavazos on 03-22-2023 INR Coag (Bld) [Relative time] 1.3 {INR} [facility] - CoagulationOrde red By: Carlos Cavazos on 03-22-2023 PT Coag (PPP) [Time] 16.4 s 11.7-14.9 [facility] INR in Blood by Coagulation assayOrdered By: Carlos Cavazos on 03-08-2023 INR Coag (Bld) [Relative time] 2.0 {INR} [facility] - CoagulationOrde red By: Carlos Cavazos on 03-08-2023 PT Coag (PPP) [Time] 22.5 s 11.7-14.9 [facility] - CoagulationOrde red By: Carlos Cavazos on 02-22-2023 INR Coag (Bld) [Relative time] 2.2 {INR} [facility] Comment on above: Critical Value > 4.0 Whole blood prothrombin time Ordered By: Carlos Cavazos on 02-22-2023 PT Coag (Bld) [Time] 24.0 s 11.7-14.9 [facility] INR in Blood by Coagulation assayOrdered By: Cliff Bruner on 02-15-2023 INR Coag (Bld) [Relative time] 2.0 {INR} [facility] - CoagulationOrde red By: Cliff Bruner on 02-15-2023 PT Coag (PPP) [Time] 22.8 s 11.7-14.9 [facility] INR in Blood by Coagulation assayOrdered By: Carlos Cavazos on 02-08-2023 INR Coag (Bld) [Relative time] 2.1 {INR} [facility] - CoagulationOrde red By: Carlos Cavazos on 02-08-2023 PT Coag (PPP) [Time] 23.5 s 11.7-14.9 [facility] INR in Blood by Coagulation assayOrdered By: Carlos Cavazos on 01-31-2023 INR Coag (Bld) [Relative time] 2.0 {INR} [facility] - CoagulationOrde red By: Carlos Cavazos on 01-31-2023 PT Coag (PPP) [Time] 22.4 s 11.7-14.9 [facility] - CoagulationOrde red By: Carols Cavazos on 01-29-2023 INR Coag (Bld) [Relative time] 1.8 {INR} [facility] Comment on above: Critical Value > 4.0 Whole blood prothrombin time Ordered By: Carlos Cavazos on 01-29-2023 PT Coag (Bld) [Time] 19.9 s 11.7-14.9 [facility] INR in Blood by Coagulation assayOrdered By: Carlos Cavazos on 01-26-2023 INR Coag (Bld) [Relative time] 1.5 {INR} [facility] - CoagulationOrde red By: Carlos Cavazos on 01-26-2023 PT Coag (PPP) [Time] 18.3 s 11.7-14.9 [facility] INR in Blood by Coagulation assayOrdered By: Carlos Cavazos on 01-24-2023 INR Coag (Bld) [Relative time] 1.3 {INR} [facility] - CoagulationOrde red By: Carlos Cavazos on 01-24-2023 PT Coag (PPP) [Time] 16.2 s 11.7-14.9 [facility] Basophil percentageOrdered B y: Carlos Cavazos on 01-22-2023 Basophil percentage 0 SEEN /hpf 0-5 [facility] Bilirubin Test strip Ql (U)O rdered By: Carlos Cavazos on 01-22-2023 Bilirubin Ql (U) Negative Negative [facility] Calcium oxalate crystals det ection in urine sediment by light microscopyOrdered By: Carlos Cavazos on 01-22-2023 Calcium oxalate crystals LM Ql (Urine sed) 1+ /hpf [facility] Culture, urineOrdered By: Sharif Crouch on 01-22-2023 Bacteria identified Cx Nom (U) Positive [facility] Ketones Test strip Ql (U)Ord ered By: Carlos Cavazos on 01-22-2023 Ketones Ql (U) Negative Negative [facility] Mucus LM Ql (Urine sed)Order ed By: Carlos Cavazos on 01-22-2023 Mucus Ql (Urine sed) 1+ /hpf [facility] Nitrite Test strip Ql (U)Ord ered By: Carlos Cavazos on 01-22-2023 Nitrite Ql (U) Negative Negative [facility] Protein Test strip Ql (U)Ord ered By: Carlos Cavazos on 01-22-2023 Protein Ql (U) Negative Negative [facility] Squamous epithelial cells de tection in urine sediment by light microscopyOrdered By: Carlos Cavazos on 01-22-2023 Epithelial cells.squamous LM Ql (Urine sed) 0 SEEN /hpf 0-5 [facility] Urine blood detectionOrdered By: Carlos Cavazos on 01-22-2023 RBC Ql (U) Negative Negative [facility] RBC Ql (U) 0 SEEN /hpf 0-5 [facility] Urine clarityOrdered By: Ted Cavazos on 01-22-2023 Clarity (U) Sl. Cloudy Clear [facility] Urine color determinationOrd ered By: Carlos Cavazos on 01-22-2023 Color (U) Yellow Yellow [facility] Urine glucose detectionOrder ed By: Carlos Cavazos on 01-22-2023 Glucose Ql (U) Normal mg/dl Normal [facility] Urine leukocyte esterase det ection by dipstickOrdered By: Carlos Cavazos on 01-22-2023 Leukocyte esterase Test strip Ql (U) Negative Negative [facility] Urine pHOrdered By: Carlos flores on 01-22-2023 pH (U) 5.0 [pH] 5.0 - 8.0 [facility] Urine sediment bacteria coun t by microscopy (number/high power field)Ordered By: Carlos Cavazos on 01-22-2023 Bacteria LM.HPF (Urine sed) [#/Area] 2 /[HPF] None Seen [facility] Urine specific gravity measu rementOrdered By: Carlos Cavazos on 01-22-2023 Specific gravity (U) [Rel density] 1.025 1.002-1.030 [facility] Urobilinogen Auto test strip Ql (U)Ordered By: Carlos Cavazos on 01-22-2023 Urobilinogen Ql (U) Normal mg/dl Normal [facility] INR in Blood by Coagulation assayOrdered By: Carlos Cavazos on 01-10-2023 INR Coag (Bld) [Relative time] 2.0 {INR} [facility] - CoagulationOrde red By: Carlos Cavazos on 01-10-2023 PT Coag (PPP) [Time] 22.6 s 11.7-14.9 [facility] INR in Blood by Coagulation assayOrdered By: Carlos Cavazos on 12-27-2022 INR Coag (Bld) [Relative time] 2.1 {INR} [facility] - CoagulationOrde red By: Carlos Cavazos on 12-27-2022 PT Coag (PPP) [Time] 24.1 s 11.7-14.9 [facility] INR in Blood by Coagulation assayOrdered By: Carlos Cavazos on 12-21-2022 INR Coag (Bld) [Relative time] 2.4 {INR} [facility] - CoagulationOrde red By: Carlos Cavazos on 12-21-2022 PT Coag (PPP) [Time] 26.7 s 11.7-14.9 [facility] - CoagulationOrde red By: Carlos Cavazos on 12-14-2022 INR Coag (Bld) [Relative time] 2.3 {INR} [facility] Comment on above: Critical Value > 4.0 Whole blood prothrombin time Ordered By: Carlos Cavazos on 12-14-2022 PT Coag (Bld) [Time] 25.2 s 11.7-14.9 [facility] - CoagulationOrde red By: Carlos Cavazos on 12-07-2022 INR Coag (Bld) [Relative time] 2.5 {INR} [facility] Comment on above: Critical Value > 4.0 Whole blood prothrombin time Ordered By: Carlos Cavazos on 12-07-2022 PT Coag (Bld) [Time] 26.9 s 11.7-14.9 [facility] Amorphous sediment detection in urine sediment by light microscopyOrdered By: Carlos Cavazos on 11-24-2022 Amorphous sediment LM Ql (Urine sed) 1+ [facility] Basophil percentageOrdered B y: Carlos Cavazos on 11-24-2022 Basophil percentage 0 SEEN /hpf 0-5 [facility] Bilirubin [Mass/Vol] 0.30 mg/dL 0.20-1.00 [facility] Comment on above: For patients on eltr ombopag therapy, use of [employer] [place] TBIL is not recommended. Chloride [Moles/Vol] 107 mmol/L 98-107 [facility] Glucose [Mass/Vol] 95 mg/dL 74-106 [facility] Potassium [Moles/Vol] 4.2 mmol/L 3.5-5.1 [facility] Protein [Mass/Vol] 6.9 g/dL 6.4-8.2 [facility] Sodium [Moles/Vol] 138 mmol/L 136-145 [facility] WBC (Bld) [#/Vol] 10.4 10*3/uL 4.4-11.0 [facility] Bilirubin Test strip Ql (U)O rdered By: Carlos Cavazos on 11-24-2022 Bilirubin Ql (U) Negative Negative [facility] Blood erythrocytes count (nu mber/volume)Ordered By: Carlos Cavazos on 11-24-2022 RBC (Bld) [#/Vol] 4.44 10*6/uL 4.6-6.2 [facility] Blood hemoglobin measurement (mass/volume)Ordered By: Carlos Cavazos on 11-24-2022 Hemoglobin (Bld) [Mass/Vol] 11.8 g/dL 13.0-16.5 [facility] Blood platelet mean volumeOr dered By: Carlos Cavazos on 11-24-2022 Platelet mean volume (Bld) [Entitic vol] 9.7 fL 6.2-12.0 [facility] Calcium oxalate crystals det ection in urine sediment by light microscopyOrdered By: Carlos Cavazos on 11-24-2022 Calcium oxalate crystals LM Ql (Urine sed) RARE /hpf [facility] Culture, urineOrdered By: Sharif Crouch on 11-24-2022 Bacteria identified Cx Nom (U) Positive [facility] Determination of erythrocyte mean corpuscular volume (MCV)Ordered By: Carlos Cavazos on 11-24-2022 MCV (RBC) [Entitic vol] 84.7 fL 80-94 [facility] Hematocrit Auto (Bld) [Volum e fraction]Ordered By: Carlos Cavazos on 11-24-2022 Hematocrit (Bld) [Volume fraction] 37.6 % 40-54 [facility] Ketones Test strip Ql (U)Ord ered By: Carlos Cavazos on 11-24-2022 Ketones Ql (U) Negative Negative [facility] Laboratory - Chemistry and C hemistry - challengeOrdered By: Carlos Cavazos on 11-24-2022 ALP [Catalytic activity/Vol] 103 U/L 45-117 [facility] ALT [Catalytic activity/Vol] 14 U/L 16-61 [facility] CO2 [Moles/Vol] 26.0 mmol/L 21.0-32.0 [facility] Globulin (S) [Mass/Vol] 4.0 g/dL 2.2-4.2 [facility] Urea nitrogen/Creatinine [Mass ratio] 24.1 mg/mg 10-20 [facility] Laboratory - Hematology and Cell countsOrdered By: Carlos Cavazos on 11-24-2022 Erythrocyte distribution width (RBC) [Entitic vol] 49.4 fL 35.1-43.9 [facility] Erythrocyte distribution width (RBC) [Ratio] 16.0 % 11.6-14.6 [facility] MCH (RBC) [Entitic mass] 26.6 pg 27.0-32.0 [facility] MCHC Auto (RBC) [Mass/Vol]Or dered By: Carlos Cavazos on 11-24-2022 MCHC (RBC) [Mass/Vol] 31.4 g/dL 32-36 [facility] Mucus LM Ql (Urine sed)Order ed By: Carlos Cavazos on 11-24-2022 Mucus Ql (Urine sed) 0 SEEN /hpf [facility] Nitrite Test strip Ql (U)Ord ered By: Carlos Cavazos on 11-24-2022 Nitrite Ql (U) Negative Negative [facility] No Panel InformationOrdered By: Carlos Cavazos on 11-24-2022 Estimated GFR (MDRD) Amer 118 mL/min >60 [facility] Comment on above: GFR Calc Estimated GFR (MDRD) Non-Af Amer 97 mL/min >60 [facility] Comment on above: Non- GFR Calc Platelets bldOrdered By: Ted Cavazos on 11-24-2022 Platelets (Bld) [#/Vol] 309 10*3/uL 150-450 [facility] Protein Test strip Ql (U)Ord ered By: Carlos Cavazos on 11-24-2022 Protein Ql (U) Negative Negative [facility] Serum or plasma albumin oral urement (mass/volume)Ordered By: Carlos Cavazos on 11-24-2022 Albumin [Mass/Vol] 2.9 g/dL 3.2-5.0 [facility] Serum or plasma albumin/glob ulin mass ratioOrdered By: Carlos Cavazos on 11-24-2022 Albumin/Globulin [Mass ratio] 0.7 {ratio} 0.9-2.4 [facility] Serum or plasma calcium oral urement (mass/volume)Ordered By: Carlos Cavazos on 11-24-2022 Calcium [Mass/Vol] 8.7 mg/dL 8.5-10.1 [facility] Serum or plasma creatinine m easurement (mass/volume)Ordered By: Carlos Cavazos on 11-24-2022 Creatinine [Mass/Vol] 0.83 mg/dL 0.70-1.30 [facility] Comment on above: The validity of the calculated GFR & GFRAA in patients over 70 years has not been determined. Clinical correlation is essential. Serum or plasma urea nitroge n measurement (mass/volume)Ordered By: Carlos Cavazos on 11-24-2022 Urea nitrogen [Mass/Vol] 20 mg/dL 7-18 [facility] Squamous epithelial cells de tection in urine sediment by light microscopyOrdered By: Carlos Cavazos on 11-24-2022 Epithelial cells.squamous LM Ql (Urine sed) 0 SEEN /hpf 0-5 [facility] Thin prep Papanicolaou smear with manual screeningOrdered By: Carlos Caavzos on 11-24-2022 Thin prep Papanicolaou smear with manual screening 10 U/L 15-37 [facility] Thin prep Papanicolaou smear with manual screening 5 5-15 [facility] Urine blood detectionOrdered By: Carlos Cavazos on 11-24-2022 RBC Ql (U) Negative Negative [facility] RBC Ql (U) 0 SEEN /hpf 0-5 [facility] Urine clarityOrdered By: eTd Cavazos on 11-24-2022 Clarity (U) Clear Clear [facility] Urine color determinationOrd ered By: Carlos Cavazos on 11-24-2022 Color (U) Yellow Yellow [facility] Urine glucose detectionOrder ed By: Carlos Cavazos on 11-24-2022 Glucose Ql (U) Normal mg/dl Normal [facility] Urine leukocyte esterase det ection by dipstickOrdered By: Carlos Cavazos on 11-24-2022 Leukocyte esterase Test strip Ql (U) Negative Negative [facility] Urine pHOrdered By: Carlos flores on 11-24-2022 pH (U) 7.0 [pH] 5.0 - 8.0 [facility] Urine sediment bacteria coun t by microscopy (number/high power field)Ordered By: Carlos Cavazos on 11-24-2022 Bacteria LM.HPF (Urine sed) [#/Area] 0 /[HPF] None Seen [facility] Urine specific gravity measu rementOrdered By: Carlos Cavazos on 11-24-2022 Specific gravity (U) [Rel density] 1.010 1.002-1.030 [facility] Urobilinogen Auto test strip Ql (U)Ordered By: Carlos Cavazos on 11-24-2022 Urobilinogen Ql (U) Normal mg/dl Normal [facility] - CoagulationOrde red By: Carlos Cavazos on 11-23-2022 INR Coag (Bld) [Relative time] 2.2 {INR} [facility] Comment on above: Critical Value > 4.0 Whole blood prothrombin time Ordered By: Carlos Cavazos on 11-23-2022 PT Coag (Bld) [Time] 24.5 s 11.7-14.9 [facility] Basophil percentageOrdered B y: Carlos Cavazos on 11-22-2022 Chloride [Moles/Vol] 105 mmol/L 98-107 [facility] Glucose [Mass/Vol] 91 mg/dL 74-106 [facility] Potassium [Moles/Vol] 4.1 mmol/L 3.5-5.1 [facility] Sodium [Moles/Vol] 138 mmol/L 136-145 [facility] WBC (Bld) [#/Vol] 12.0 10*3/uL 4.4-11.0 [facility] Blood erythrocytes count (nu mber/volume)Ordered By: Carlos Cavazos on 11-22-2022 RBC (Bld) [#/Vol] 4.65 10*6/uL 4.6-6.2 [facility] Blood hemoglobin measurement (mass/volume)Ordered By: Carlos Cavazos on 11-22-2022 Hemoglobin (Bld) [Mass/Vol] 12.4 g/dL 13.0-16.5 [facility] Blood platelet mean volumeOr dered By: Carlos Cavazos on 11-22-2022 Platelet mean volume (Bld) [Entitic vol] 10.3 fL 6.2-12.0 [facility] Determination of erythrocyte mean corpuscular volume (MCV)Ordered By: Carlos Cavazos on 11-22-2022 MCV (RBC) [Entitic vol] 86.0 fL 80-94 [facility] Hematocrit Auto (Bld) [Volum e fraction]Ordered By: Carlos Cavazos on 11-22-2022 Hematocrit (Bld) [Volume fraction] 40.0 % 40-54 [facility] - Chemistry and C hemistry - challengeOrdered By: Carlos Cavazos on 11-22-2022 CO2 [Moles/Vol] 25.0 mmol/L 21.0-32.0 [facility] Urea nitrogen/Creatinine [Mass ratio] 23.6 mg/mg 10-20 [facility] - Hematology and Cell countsOrdered By: Carlos Cavaozs on 11-22-2022 Erythrocyte distribution width (RBC) [Entitic vol] 50.0 fL 35.1-43.9 [facility] Erythrocyte distribution width (RBC) [Ratio] 15.9 % 11.6-14.6 [facility] MCH (RBC) [Entitic mass] 26.7 pg 27.0-32.0 [facility] MCHC Auto (RBC) [Mass/Vol]Or dered By: Carlos Cavazos on 11-22-2022 MCHC (RBC) [Mass/Vol] 31.0 g/dL 32-36 [facility] No Panel InformationOrdered By: Carlos Cavazos on 11-22-2022 Estimated GFR (MDRD) Amer 115 mL/min >60 [facility] Comment on above: GFR Calc Estimated GFR (MDRD) Non-Af Amer 95 mL/min >60 [facility] Comment on above: Non- GFR Calc Platelets bldOrdered By: Pet er Kenny on 11-22-2022 Platelets (Bld) [#/Vol] 320 10*3/uL 150-450 [facility] Serum or plasma calcium oral urement (mass/volume)Ordered By: Carlos Cavazos on 11-22-2022 Calcium [Mass/Vol] 8.7 mg/dL 8.5-10.1 [facility] Serum or plasma creatinine m easurement (mass/volume)Ordered By: Carlos Cavazos on 11-22-2022 Creatinine [Mass/Vol] 0.85 mg/dL 0.70-1.30 [facility] Comment on above: The validity of the calculated GFR & GFRAA in patients over 70 years has not been determined. Clinical correlation is essential. Serum or plasma urea nitroge n measurement (mass/volume)Ordered By: Carlos Cavazos on 11-22-2022 Urea nitrogen [Mass/Vol] 20 mg/dL 7-18 [facility] Thin prep Papanicolaou smear with manual screeningOrdered By: Carlos Cavazos on 11-22-2022 Thin prep Papanicolaou smear with manual screening 8 5-15 [facility] - CoagulationOrde red By: Carlos Cavazos on 11-09-2022 INR Coag (Bld) [Relative time] 2.1 {INR} [facility] Comment on above: Critical Value > 4.0 Whole blood prothrombin time Ordered By: Carlos Cavazos on 11-09-2022 PT Coag (Bld) [Time] 22.6 s 11.7-14.9 [facility] - CoagulationOrde red By: Carlos Cavazos on 10-26-2022 INR Coag (Bld) [Relative time] 2.6 {INR} [facility] Comment on above: Critical Value > 4.0 Whole blood prothrombin time Ordered By: Carlos Cavazos on 10-26-2022 PT Coag (Bld) [Time] 28.5 s 11.7-14.9 [facility] - CoagulationOrde red By: Carlos Cavazos on 10-12-2022 INR Coag (Bld) [Relative time] 2.4 {INR} [facility] Comment on above: Critical Value > 4.0 Whole blood prothrombin time Ordered By: Carlos Cavazos on 10-12-2022 PT Coag (Bld) [Time] 26.4 s 11.7-14.9 [facility] - CoagulationOrde red By: Carlos Cavazos on 10-05-2022 INR Coag (Bld) [Relative time] 2.6 {INR} [facility] Comment on above: Critical Value > 4.0 Whole blood prothrombin time Ordered By: Carlos Cavazos on 10-05-2022 PT Coag (Bld) [Time] 28.0 s 11.7-14.9 [facility] - CoagulationOrde red By: Carlos Cavazos on 09-28-2022 INR Coag (Bld) [Relative time] 2.7 {INR} [facility] Comment on above: Critical Value > 4.0 Whole blood prothrombin time Ordered By: Carlos Cavazos on 09-28-2022 PT Coag (Bld) [Time] 28.9 s 11.7-14.9 [facility] - CoagulationOrde red By: Carlos Cavazos on 09-14-2022 INR Coag (Bld) [Relative time] 2.5 {INR} [facility] Comment on above: Critical Value > 4.0 Whole blood prothrombin time Ordered By: Carlos Cavazos on 09-14-2022 PT Coag (Bld) [Time] 27.4 s 11.7-14.9 [facility] - CoagulationOrde red By: Carlos aCvazos on 08-31-2022 INR Coag (Bld) [Relative time] 2.3 {INR} [facility] Comment on above: Critical Value > 4.0 Whole blood prothrombin time Ordered By: Carlos Cavazos on 08-31-2022 PT Coag (Bld) [Time] 25.4 s 11.7-14.9 [facility] Basophil percentageOrdered B y: Carlos Cavazos on 08-23-2022 Chloride [Moles/Vol] 108 mmol/L 98-107 [facility] Glucose [Mass/Vol] 86 mg/dL 74-106 [facility] Potassium [Moles/Vol] 4.3 mmol/L 3.5-5.1 [facility] Sodium [Moles/Vol] 136 mmol/L 136-145 [facility] WBC (Bld) [#/Vol] 10.0 10*3/uL 4.4-11.0 [facility] Blood erythrocytes count (nu mber/volume)Ordered By: Carlos Cavazos on 08-23-2022 RBC (Bld) [#/Vol] 4.77 10*6/uL 4.6-6.2 [facility] Blood hemoglobin measurement (mass/volume)Ordered By: Carlos Cavazos on 08-23-2022 Hemoglobin (Bld) [Mass/Vol] 12.5 g/dL 13.0-16.5 [facility] Blood platelet mean volumeOr dered By: Carlos Cavazos on 08-23-2022 Platelet mean volume (Bld) [Entitic vol] 11.0 fL 6.2-12.0 [facility] Determination of erythrocyte mean corpuscular volume (MCV)Ordered By: Carlos Cavazos on 08-23-2022 MCV (RBC) [Entitic vol] 84.3 fL 80-94 [facility] Hematocrit Auto (Bld) [Volum e fraction]Ordered By: Carlos Cavazos on 08-23-2022 Hematocrit (Bld) [Volume fraction] 40.2 % 40-54 [facility] - Chemistry and C hemistry - challengeOrdered By: Carlos Cavazos on 08-23-2022 CO2 [Moles/Vol] 24.0 mmol/L 21.0-32.0 [facility] Urea nitrogen/Creatinine [Mass ratio] 22.8 mg/mg 10-20 [facility] - Hematology and Cell countsOrdered By: Carlos Cavazos on 08-23-2022 Erythrocyte distribution width (RBC) [Entitic vol] 49.3 fL 35.1-43.9 [facility] Erythrocyte distribution width (RBC) [Ratio] 16.0 % 11.6-14.6 [facility] MCH (RBC) [Entitic mass] 26.2 pg 27.0-32.0 [facility] MCHC Auto (RBC) [Mass/Vol]Or dered By: Carlos Cavazos on 08-23-2022 MCHC (RBC) [Mass/Vol] 31.1 g/dL 32-36 [facility] No Panel InformationOrdered By: Carlos Cavazos on 08-23-2022 Estimated GFR (MDRD) Amer 134 mL/min >60 [facility] Comment on above: GFR Calc Estimated GFR (MDRD) Non-Af Amer 110 mL/min >60 [facility] Comment on above: Non- GFR Calc Platelets bldOrdered By: Ted Cavazos on 08-23-2022 Platelets (Bld) [#/Vol] 268 10*3/uL 150-450 [facility] Serum or plasma calcium oral urement (mass/volume)Ordered By: Carlos Cavazos on 08-23-2022 Calcium [Mass/Vol] 9.1 mg/dL 8.5-10.1 [facility] Serum or plasma creatinine m easurement (mass/volume)Ordered By: Carlos Cavazos on 08-23-2022 Creatinine [Mass/Vol] 0.74 mg/dL 0.70-1.30 [facility] Comment on above: The validity of the calculated GFR & GFRAA in patients over 70 years has not been determined. Clinical correlation is essential. Serum or plasma urea nitroge n measurement (mass/volume)Ordered By: Carlos Cavazos on 08-23-2022 Urea nitrogen [Mass/Vol] 17 mg/dL 7-18 [facility] Thin prep Papanicolaou smear with manual screeningOrdered By: Carlos Cavazos on 08-23-2022 Thin prep Papanicolaou smear with manual screening 4 5-15 [facility] Laboratory - CoagulationOrde red By: Carlos Cavazos on 08-17-2022 INR Coag (Bld) [Relative time] 2.8 {INR} [facility] Comment on above: Critical Value > 4.0 Whole blood prothrombin time Ordered By: Carlos Cavazos on 08-17-2022 PT Coag (Bld) [Time] 29.6 s 11.7-14.9 [facility] Laboratory - CoagulationOrde red By: Carlos Cavazos on 08-14-2022 INR Coag (Bld) [Relative time] 3.9 {INR} [facility] Comment on above: Critical Value > 4.0 Whole blood prothrombin time Ordered By: Carlos Cavazos on 08-14-2022 PT Coag (Bld) [Time] 40.6 s 11.7-14.9 [facility] Laboratory - CoagulationOrde red By: Carlos Cavazos on 07-31-2022 INR Coag (Bld) [Relative time] 2.5 {INR} [facility] Comment on above: Critical Value > 4.0 Whole blood prothrombin time Ordered By: Carlos Cavazos on 07-31-2022 PT Coag (Bld) [Time] 26.8 s 11.7-14.9 [facility] INR in Blood by Coagulation assayOrdered By: Carlos Cavazos on 07-24-2022 INR Coag (Bld) [Relative time] 2.3 {INR} [facility] Laboratory - CoagulationOrde red By: Carlos Cavazos on 07-24-2022 PT Coag (PPP) [Time] 24.7 s 11.7-14.9 [facility] Laboratory - CoagulationOrde red By: Carlos Cavazos on 07-20-2022 INR Coag (Bld) [Relative time] 1.9 {INR} [facility] Comment on above: Critical Value > 4.0 Whole blood prothrombin time Ordered By: Carlos Cavazos on 07-20-2022 PT Coag (Bld) [Time] 20.6 s 11.7-14.9 [facility] Laboratory - CoagulationOrde red By: Carlos Cavazos on 07-17-2022 INR Coag (Bld) [Relative time] 1.3 {INR} [facility] Comment on above: Critical Value > 4.0 Whole blood prothrombin time Ordered By: Carlos Cavazos on 07-17-2022 PT Coag (Bld) [Time] 15.9 s 11.7-14.9 [facility] Basophil percentageOrdered B y: Carlos Cavazos on 07-11-2022 Chloride [Moles/Vol] 105 mmol/L 98-107 [facility] Glucose [Mass/Vol] 97 mg/dL 74-106 [facility] Potassium [Moles/Vol] 3.9 mmol/L 3.5-5.1 [facility] Sodium [Moles/Vol] 140 mmol/L 136-145 [facility] WBC (Bld) [#/Vol] 9.4 10*3/uL 4.4-11.0 [facility] Blood erythrocytes count (nu mber/volume)Ordered By: Carlos Cavazos on 07-11-2022 RBC (Bld) [#/Vol] 4.66 10*6/uL 4.6-6.2 [facility] Blood hemoglobin measurement (mass/volume)Ordered By: Carlos Cavazos on 07-11-2022 Hemoglobin (Bld) [Mass/Vol] 12.0 g/dL 13.0-16.5 [facility] Blood platelet mean volumeOr dered By: Carlos Cavazos on 07-11-2022 Platelet mean volume (Bld) [Entitic vol] 10.4 fL 6.2-12.0 [facility] Determination of erythrocyte mean corpuscular volume (MCV)Ordered By: Carlos Cavazos on 07-11-2022 MCV (RBC) [Entitic vol] 83.7 fL 80-94 [facility] Hematocrit Auto (Bld) [Volum e fraction]Ordered By: Carlos Cavazos on 07-11-2022 Hematocrit (Bld) [Volume fraction] 39.0 % 40-54 [facility] Laboratory - Chemistry and C hemistry - challengeOrdered By: Carlos Cavazos on 07-11-2022 CO2 [Moles/Vol] 28.0 mmol/L 21.0-32.0 [facility] Urea nitrogen/Creatinine [Mass ratio] 23.0 mg/mg 10-20 [facility] Laboratory - Hematology and Cell countsOrdered By: Carlos Cavazos on 07-11-2022 Erythrocyte distribution width (RBC) [Entitic vol] 51.0 fL 35.1-43.9 [facility] Erythrocyte distribution width (RBC) [Ratio] 16.8 % 11.6-14.6 [facility] MCH (RBC) [Entitic mass] 25.8 pg 27.0-32.0 [facility] MCHC Auto (RBC) [Mass/Vol]Or dered By: Carlos Cavazos on 07-11-2022 MCHC (RBC) [Mass/Vol] 30.8 g/dL 32-36 [facility] No Panel InformationOrdered By: Carlos Cavazos on 07-11-2022 Estimated GFR (MDRD) Amer 126 mL/min >60 [facility] Comment on above: GFR Calc Estimated GFR (MDRD) Non-Af Amer 104 mL/min >60 [facility] Comment on above: Non- GFR Calc Platelets bldOrdered By: Ted Cavazos on 07-11-2022 Platelets (Bld) [#/Vol] 291 10*3/uL 150-450 [facility] Serum or plasma calcium oral urement (mass/volume)Ordered By: Carlos Cavazos on 07-11-2022 Calcium [Mass/Vol] 9.2 mg/dL 8.5-10.1 [facility] Serum or plasma creatinine m easurement (mass/volume)Ordered By: Carlos Cavazos on 07-11-2022 Creatinine [Mass/Vol] 0.78 mg/dL 0.70-1.30 [facility] Comment on above: The validity of the calculated GFR & GFRAA in patients over 70 years has not been determined. Clinical correlation is essential. Serum or plasma urea nitroge n measurement (mass/volume)Ordered By: Carlos Cavazos on 07-11-2022 Urea nitrogen [Mass/Vol] 18 mg/dL 7-18 [facility] Thin prep Papanicolaou smear with manual screeningOrdered By: Carlos Cavazos on 07-11-2022 Thin prep Papanicolaou smear with manual screening 7 5-15 [facility] Laboratory - CoagulationOrde red By: Carlos Cavazos on 07-10-2022 INR Coag (Bld) [Relative time] 1.8 {INR} [facility] Comment on above: Critical Value > 4.0 Whole blood prothrombin time Ordered By: Carlos Cavazos on 07-10-2022 PT Coag (Bld) [Time] 21.0 s 11.7-14.9 [facility] Laboratory - CoagulationOrde red By: Carlos Cavazos on 07-03-2022 INR Coag (Bld) [Relative time] 1.9 {INR} [facility] Comment on above: Critical Value > 4.0 Whole blood prothrombin time Ordered By: Carlos Cavazos on 07-03-2022 PT Coag (Bld) [Time] 22.7 s 11.7-14.9 [facility] INR in Blood by Coagulation assayOrdered By: Carlos Cavazos on 06-27-2022 INR Coag (Bld) [Relative time] 2.9 {INR} [facility] Laboratory - CoagulationOrde red By: Carlos Cavazos on 06-27-2022 PT Coag (PPP) [Time] 29.9 s 11.7-14.9 [facility] Laboratory - CoagulationOrde red By: Carlos Cavazos on 06-13-2022 INR Coag (Bld) [Relative time] 2.1 {INR} [facility] Comment on above: Critical Value > 4.0 Whole blood prothrombin time Ordered By: Carlos Cavazos on 06-13-2022 PT Coag (Bld) [Time] 24.4 s 11.7-14.9 [facility] Laboratory - CoagulationOrde red By: Carlos Cavazos on 06-06-2022 INR Coag (Bld) [Relative time] 1.5 {INR} [facility] Comment on above: Critical Value > 4.0 Whole blood prothrombin time Ordered By: Carlos Cavazos on 06-06-2022 PT Coag (Bld) [Time] 18.4 s 11.7-14.9 [facility] Basophil percentageOrdered B y: Carlos Cavazos on 05-30-2022 Chloride [Moles/Vol] 105 mmol/L 98-107 [facility] Glucose [Mass/Vol] 95 mg/dL 74-106 [facility] Potassium [Moles/Vol] 3.9 mmol/L 3.5-5.1 [facility] Sodium [Moles/Vol] 140 mmol/L 136-145 [facility] WBC (Bld) [#/Vol] 7.6 10*3/uL 4.4-11.0 [facility] Blood erythrocytes count (nu mber/volume)Ordered By: Carlos Cavazos on 05-30-2022 RBC (Bld) [#/Vol] 4.79 10*6/uL 4.6-6.2 [facility] Blood hemoglobin measurement (mass/volume)Ordered By: Carlos Cavazos on 05-30-2022 Hemoglobin (Bld) [Mass/Vol] 12.1 g/dL 13.0-16.5 [facility] Blood platelet mean volumeOr dered By: Carlos Cavazos on 05-30-2022 Platelet mean volume (Bld) [Entitic vol] 10.4 fL 6.2-12.0 [facility] Determination of erythrocyte mean corpuscular volume (MCV)Ordered By: Carlos Cavazos on 05-30-2022 MCV (RBC) [Entitic vol] 82.5 fL 80-94 [facility] Hematocrit Auto (Bld) [Volum e fraction]Ordered By: Carlos Cavazos on 05-30-2022 Hematocrit (Bld) [Volume fraction] 39.5 % 40-54 [facility] INR in Blood by Coagulation assayOrdered By: Carlos Cavazos on 05-30-2022 INR Coag (Bld) [Relative time] 1.9 {INR} [facility] Laboratory - Chemistry and C hemistry - challengeOrdered By: Carlos Cavazos on 05-30-2022 CO2 [Moles/Vol] 27.0 mmol/L 21.0-32.0 [facility] Urea nitrogen/Creatinine [Mass ratio] 21.4 mg/mg 10-20 [facility] Laboratory - CoagulationOrde red By: Carlos Cavazos on 05-30-2022 PT Coag (PPP) [Time] 21.6 s 11.7-14.9 [facility] Laboratory - Hematology and Cell countsOrdered By: Carlos Cavazos on 05-30-2022 Erythrocyte distribution width (RBC) [Entitic vol] 48.8 fL 35.1-43.9 [facility] Erythrocyte distribution width (RBC) [Ratio] 16.2 % 11.6-14.6 [facility] MCH (RBC) [Entitic mass] 25.3 pg 27.0-32.0 [facility] [Mass/Vol]Or dered By: Carlos Cavazos on 05-30-2022 MCHC (RBC) [Mass/Vol] 30.6 g/dL 32-36 [facility] No Panel InformationOrdered By: Carlos Cavazos on 05-30-2022 Estimated GFR (MDRD) Amer 133 mL/min >60 [facility] Comment on above: GFR Calc Estimated GFR (MDRD) Non-Af Amer 110 mL/min >60 [facility] Comment on above: Non- GFR Calc Platelets bldOrdered By: Ted Cavazos on 05-30-2022 Platelets (Bld) [#/Vol] 308 10*3/uL 150-450 [facility] Serum or plasma calcium oral urement (mass/volume)Ordered By: Carlos Cavazos on 05-30-2022 Calcium [Mass/Vol] 9.1 mg/dL 8.5-10.1 [facility] Serum or plasma creatinine m easurement (mass/volume)Ordered By: Carlos Cavazos on 05-30-2022 Creatinine [Mass/Vol] 0.75 mg/dL 0.70-1.30 [facility] Comment on above: The validity of the calculated GFR & GFRAA in patients over 70 years has not been determined. Clinical correlation is essential. Serum or plasma urea nitroge n measurement (mass/volume)Ordered By: Carlos Cavazos on 05-30-2022 Urea nitrogen [Mass/Vol] 16 mg/dL 7-18 [facility] Thin prep Papanicolaou smear with manual screeningOrdered By: Carlos Cavazos on 05-30-2022 Thin prep Papanicolaou smear with manual screening 8 5-15 [facility] Laboratory - CoagulationOrde red By: Carlos Cavazos on 05-16-2022 INR Coag (Bld) [Relative time] 2.6 {INR} [facility] Comment on above: Critical Value > 4.0 Whole blood prothrombin time Ordered By: Carlos Cavazos on 05-16-2022 PT Coag (Bld) [Time] 29.9 s 11.7-14.[address] [facility] Laboratory - CoagulationOrde red By: Carlos Cavazos on 05-02-2022 INR Coag (Bld) [Relative time] 2.0 {INR} [facility] Comment on above: Critical Value > 4.0 Whole blood prothrombin time Ordered By: Carlos Cavazos on 05-02-2022 PT Coag (Bld) [Time] 23.2 s 11.7-14.9 [facility] Laboratory - CoagulationOrde red By: Carlos Cavazos on 04-27-2022 INR Coag (Bld) [Relative time] 2.7 {INR} [facility] Comment on above: Critical Value > 4.0 Whole blood prothrombin time Ordered By: Carlos Cavazos on 04-27-2022 PT Coag (Bld) [Time] 31.1 s 11.7-14.9 [facility] Laboratory - CoagulationOrde red By: Carlos Cavazos on 04-26-2022 INR Coag (Bld) [Relative time] 2.8 {INR} [facility] Comment on above: Critical Value > 4.0 Whole blood prothrombin time Ordered By: Carlos Cavazos on 04-26-2022 PT Coag (Bld) [Time] 32.6 s 11.7-14.9 [facility] Laboratory - CoagulationOrde red By: Carlos Cavazos on 04-11-2022 INR Coag (Bld) [Relative time] 2.9 {INR} [facility] Comment on above: Critical Value > 4.0 Whole blood prothrombin time Ordered By: Carlos Cavazos on 04-11-2022 PT Coag (Bld) [Time] 32.8 s 11.7-14.9 [facility] Laboratory - CoagulationOrde red By: Carlos Cavazos on 03-28-2022 INR Coag (Bld) [Relative time] 2.1 {INR} [facility] Comment on above: Critical Value > 4.0 Whole blood prothrombin time Ordered By: Carlos Cavaozs on 03-28-2022 PT Coag (Bld) [Time] 24.8 s 11.7-14.9 [facility] Laboratory - CoagulationOrde red By: Carlos Cavazos on 03-23-2022 INR Coag (Bld) [Relative time] 1.7 {INR} [facility] Comment on above: Critical Value > 4.0 Whole blood prothrombin time Ordered By: Carlos Cavazos on 03-23-2022 PT Coag (Bld) [Time] 20.9 s 11.7-14.9 [facility] Laboratory - CoagulationOrde red By: Carlos Cavazos on 03-16-2022 INR Coag (Bld) [Relative time] 1.7 {INR} [facility] Comment on above: Critical Value > 4.0 Whole blood prothrombin time Ordered By: Carlos Cavazos on 03-16-2022 PT Coag (Bld) [Time] 19.9 s 11.7-14.9 [facility] Laboratory - CoagulationOrde red By: Carlos Cavazos on 03-09-2022 INR Coag (Bld) [Relative time] 1.8 {INR} [facility] Comment on above: Critical Value > 4.0 Whole blood prothrombin time Ordered By: Carlos Cavazos on 03-09-2022 PT Coag (Bld) [Time] 21.9 s 11.7-14.9 [facility] Laboratory - CoagulationOrde red By: Carlos Cavazos on 03-06-2022 INR Coag (Bld) [Relative time] 1.7 {INR} [facility] Comment on above: Critical Value > [...] - 10.7 10*3/uL [facility] Test Performed by [facility], [address] [place] [address] [facility] [address] HEAD WO CONTRASTon 2021 Patient Name: ANDREW SIFUENTES Computed Tomography ACCESSION EXAM DATE/TIME PROCEDURE ORDERING PROVIDER [id number] 03/02/2022 13:[address] Head or Brain w/o [id number] -LANETTE MUNGUIA Contrast CPT code 86472 Reason For Exam (CT Head or Brain [...] tubes (parent active on the left for TAKE OFF WORKER shunting and disconnected on the right). 2. No definite evidence of acute infarction (MRI more sensitive), mass lesion, nor hemorrhage. Report Dictated on --- Final --- Dictated: 03/02/2022 1:35 pm Dictating Physician: MD GUTIERREZ WILLIAM Signed Date and Time: 03/02/2022 1:39 pm Signed by: MD GUTIERREZ WILLIAM Transcribed Date and Time: 03/02/2022 1:35 [facility] Anant Gutierrez MD - 03/02/2022 [id number] ACCESSION EXAM DATE/TIME PROCEDURE ORDERING PROVIDER [id number] 03/02/2022 13:[address] Head or Brain w/o [id number] -EZRA LANETTE Contrast CPT code 04054 Reason For Exam (CT Head or Brain [...] tubes (parent active on the left for TAKE OFF WORKER shunting and disconnected on the right). 2. [...] Tomography ACCESSION EXAM DATE/TIME PROCEDURE ORDERING PROVIDER [id number] 03/02/2022 13:[address] Head or Brain w/o [id number] -LANETTE MUNGUIA Contrast CPT code 38895 Reason For Exam (CT Head or Brain [...] tubes (parent active on the left for TAKE OFF WORKER shunting and disconnected on the right). 2. No definite evidence of acute infarction (MRI more sensitive), mass lesion, nor hemorrhage. Report Dictated on Final Dictated: 03/02/2022 1:35 pm Dictating Physician: MD GUTIERREZ WILLIAM Signed Date and Time: 03/02/2022 1:39 pm Signed by: MD GUTIERREZ WILLIAM Transcribed Date and Time: 03/02/2022 1:35 Normal [facility] Comp Metabolic Panelon 03-02 Calcium [Mass/Vol] 9.1 mg/dL Normal 8.4-10.4 [facility] Comment on above: Performed By: #### H TIERA PT, CMP3 ####[id number] [place], [place] ALP [Catalytic activity/Vol] 128 U/L High 38-126 [facility] Comment on above: Performed By: #### H TIERA PT, CMP3 ####[id number] [place], [place] ALT [Catalytic activity/Vol] 12 U/L Normal 0-49 [facility] Comment on above: Result Comment: The ALT test is performed by an updated assay method. Please note that the reference intervals have been changed and are now sex specific. Performed By: #### H EMDF PT, CMP3 ####[id number] [place], [place] Anion gap [Moles/Vol] 7 mmol/L Normal 3-13 [facility] Comment on above: Performed By: #### H EMDF PT, CMP3 ####[address] [place], [place] AST [Catalytic activity/Vol] 24 U/L Normal 15-46 [facility] Comment on above: Performed By: #### H CHRISTEL MOTT, CMP3 ####[address] [place], [place] Bilirubin [Mass/Vol] 0.4 mg/dL Normal 0.2-1.3 [facility] Comment on above: Performed By: #### H CHRISTEL MOTT, CMP3 ####[address] [place], [place] CO2 [Moles/Vol] 27 mmol/L Normal 22-30 [facility] Comment on above: Performed By: #### H CHRISTEL MOTT CMP3 ####[id number] [place], [place] Glucose [Mass/Vol] 109 mg/dL High 70-100 [facility] Comment on above: Performed By: #### H CHRISTEL MOTT, CMP3 ####[address] [place], [place] Protein [Mass/Vol] 8.1 g/dL Normal 6.3-8.2 [facility] Comment on above: Performed By: #### H CHRISTEL MOTT, CMP3 ####[address] [address] [place], [place] Urea nitrogen [Mass/Vol] 22 mg/dL High 7-17 [facility] Comment on above: Performed By: #### H CHRISTEL MOTT, CMP3 ####[address] [place], [place] Creatinine [Mass/Vol] 0.63 mg/dL Normal 0.52-1.25 [facility] Comment on above: Performed By: #### H CHRISTEL MOTT, CMP3 ####[address] [place], [place] eGFR OTHER > 90.0 Normal >60 [facility] Comment on above: Result [...] Performed By: #### H CHRISTEL MOTT CMP3 ####[address] [place] [address] GFR/1.73 sq M.predicted among blacks MDRD (S/P/Bld) [Vol rate/Area] mL/min/{1.73_m2} Normal >60 [facility] Comment on above: Performed By: #### H CHRISTEL MOTT CMP3 ####[address] [address] Albumin [Mass/Vol] 4.1 g/dL Normal 3.5-5.0 [facility] Comment on above: Performed By: #### H CHRISTEL MOTT CMP3 ####[address] [address] Chloride [Moles/Vol] 106 mmol/L Normal 98-107 [facility] Comment on above: Performed By: #### H CHRISTEL MOTT CMP3 ####[address] [address] Potassium [Moles/Vol] 3.7 mmol/L Normal 3.5-5.1 [facility] Comment on above: Performed By: #### H CHRISTEL MOTT CMP3 ####[address] [place] [address] Sodium [Moles/Vol] 140 mmol/L Normal 135-145 [facility] Comment on above: Performed By: #### H EMDF, PT, CMP3 ####[facility] [place] [address] Comprehensive Metabolic Pane [facility] 03-02-2022 Albumin [Mass/Vol] 4.1 g/dL 3.5 - [...] - 17 mg/dL [facility] Test Performed by [facility], [address] [place] [address] [facility] LAB [facility] ED Provider Noteon 2 ED Provider Note [facility] EMERGENCY DEPT EMERGENCY DEPARTMENT ENCOUNTER Pt Name: Andrew Sifuentes Birthdate 1950 Date of evaluation: 03/02/2022 Provider: Lanette Munguia DO CHIEF COMPLAINT Chief Complaint Patient presents with Fall Patient had unwitnessed fall at [facility] landed on butt. Is on thinners, denies LOC, denies head injury has no complaints at this time HISTORY OF PRESENT ILLNESS (Location/Symptom, Timing/Onset, Context/Setting, Quality, Duration, Modifying Factors, Severity) Note limiting factors. I wore a N-95 mask for the entirety of this encounter. Andrew Sifuentes is a 71 y.o. male medical history of hydrocephalus status post TAKE OFF WORKER shunt, history of DVT on Coumadin who presents [facility] the emergency department [facility] following mechanical fall. Patient [...] Hemorrhoids Hydrocephalus, adult (HCC) Kidney stone Neuropathy TAKE OFF WORKER (ventriculoperitoneal) shunt status SURGICAL HISTORY Past Surgical [...] CONTRAST R (more content not included)... Normal [facility] Hemogram w/ Autodiffon 03-02 Abs Baso Cnt 0.2 10*3/uL Normal 0.0-0.2 [facility] Comment on above: Performed By: #### H EMDF PT, CMP3 ####[facility] [place] [address] Abs Neutrophile Cnt 10.7 10*3/uL High 1.8-7.0 [facility] Comment on above: Performed By: #### H EMDF, PT, CMP3 ####[facility] [place] [address] Basophils/100 WBC (Bld) 1.1 % Normal 0.0-2.0 [facility] Comment on above: Performed By: #### H EMDF, PT, CMP3 ####[facility] [place] [address] Eosinophils (Bld) [#/Vol] 0.1 10*3/uL Normal 0.0-0.5 [facility] Comment on above: Performed By: #### H EMDHeydi PT, CMP3 ####[address] [address] Eosinophils/100 WBC (Bld) 0.5 % Low 1.0-6.0 [facility] Comment on above: Performed By: #### H EMDF PT, CMP3 ####[address] [address] Granulocytes/100 WBC (Bld) 73.9 % Normal 40.0-80.0 [facility] Comment on above: Performed By: #### H TIERA PT, CMP3 ####[address] [address] Lymphocytes (Bld) [#/Vol] 3.0 10*3/uL Normal 1.0-4.3 [facility] Comment on above: Performed By: #### H TIERA PT, CMP3 ####[address] [address] Lymphocytes/100 WBC (Bld) 20.6 % Normal 20.0-40.0 [facility] Comment on above: Performed By: #### H EMDHeydi PT, CMP3 ####[address] [address] Monocytes (Bld) [#/Vol] 0.6 10*3/uL Normal 0.0-0.8 [facility] Comment on above: Performed By: #### H EMDF PT, CMP3 ####[address] [address] Monocytes/100 WBC (Bld) 3.9 % Normal 2.0-10.0 [facility] Comment on above: Performed By: #### H EMDF PT, CMP3 ####[address] [address] Platelet mean volume (Bld) [Entitic vol] 8.5 fL Normal 7.4-12.4 [facility] Comment on above: Result Comment: MPV is a calculated measurement using platelet volume ratio. Performed By: #### H EMDHeydi PT, CMP3 ####[address] Platelets (Bld) [#/Vol] 411 10*3/uL Normal 140-440 [facility] Comment on above: Performed By: #### H EMDHeydi PT, CMP3 ####[address] [place], [place] Erythrocyte distribution width (RBC) [Ratio] 17.0 % High 11.5-14.5 [facility] Comment on above: Performed By: #### H TIERA PT, CMP3 ####[address] Hematocrit (Bld) [Volume fraction] 37.4 % Low 40.0-52.0 [facility] Comment on above: Performed By: #### H TIERA PT, CMP3 ####[address] Hemoglobin (Bld) [Mass/Vol] 12.1 g/dL Low 13.0-18.0 [facility] Comment on above: Performed By: #### H TIERA PT, CMP3 ####[address] [place], [place] MCH (RBC) [Entitic mass] 26.2 pg Normal 26.0-34.0 [facility] Comment on above: Performed By: #### H EMDHeydi PT, CMP3 ####[address] [place], [place] MCHC 32.3 % Normal 32.0-36.0 [facility] Comment on above: Performed By: #### H TIERA PT, CMP3 ####[address] MCV (RBC) [Entitic vol] 81.1 fL Normal 80.0-98.0 [facility] Comment on above: Performed By: #### H EMDHeydi PT, CMP3 ####[address] RBC (Bld) [#/Vol] 4.61 10*6/uL Normal 4.40-5.90 [facility] Comment on above: Performed By: #### H BIMALF PT, CMP3 ####[address] [place], [place] WBC (Bld) [#/Vol] 14.5 10*3/uL High 3.6-10.7 [facility] Comment on above: Performed By: #### H BIMALF PT, CMP3 ####[address] [place], [place] Prothrombin Timeon INR 1.9 High 0.9-1.1 [facility] Comment on above: Result [...] By: #### H TIERA PT, CMP3 ####[address] PT Coag (PPP) [Time] 18.9 s High 9.0-12.0 [facility] Comment on above: Result Comment: . Performed By: #### H TIERA PT, CMP3 ####[address] [place], [place] [employer] 03-02-2022 INR Coag (Bld) [Relative time] 1.9 {INR} High [facility] Comment on above: Recommended Anticoag ulant [...] Interpretation and review of laboratory results Abnormal [facility] PT Coag (PPP) [Time] 18.9 s High 9.0 - 12.0 s [facility] Comment on above: . Test Performed by [facility], [address] [place] [id number] [place] [address] LAB [facility] Laboratory - CoagulationOrde red By: Carlos Cavazos on 02-20-2022 INR Coag (Bld) [Relative time] 2.6 {INR} [facility] Comment on above: Critical Value > 4.0 Whole blood prothrombin time Ordered By: Carlos Cavazos on 02-20-2022 PT Coag (Bld) [Time] 30.1 s 11.7-14.9 [facility] Laboratory - CoagulationOrde red By: Carlos Cavazos on 02-13-2022 INR Coag (Bld) [Relative time] 2.3 {INR} [facility] Comment on above: Critical Value > 4.0 Whole blood prothrombin time Ordered By: Carols Cavazos on 02-13-2022 PT Coag (Bld) [Time] 26.7 s 11.7-14.9 [facility] Laboratory - CoagulationOrde red By: Carlos Cavazos on 02-06-2022 INR Coag (Bld) [Relative time] 2.3 {INR} [facility] Comment on above: Critical Value > 4.0 Whole blood prothrombin time Ordered By: Carlos Cavazos on 02-06-2022 PT Coag (Bld) [Time] 26.6 s 11.7-14.9 [facility] Laboratory - Coagulationon 0 01-30-2022 INR Coag (Bld) [Relative time] 1.7 {INR} [facility] Work Phone: Comment on above: Critical Value > 4.0 Whole blood prothrombin time on 01-30-2022 PT Coag (Bld) [Time] 20.1 s 11.7-14.9 [facility] Work Phone: Laboratory - Coagulationon 0 01-26-2022 INR Coag (Bld) [Relative time] 1.8 {INR} [facility] Work Phone: Comment on above: Critical Value > 4.0 Whole blood prothrombin time on 01-26-2022 PT Coag (Bld) [Time] 21.8 s 11.7-14.9 [facility] Work Phone: Laboratory - Coagulationon 0 01-19-2022 INR Coag (Bld) [Relative time] 2.2 {INR} [facility] Work Phone: Comment on above: Critical Value > 4.0 Whole blood prothrombin time on 01-19-2022 PT Coag (Bld) [Time] 25.7 s 11.7-14.9 [facility] Work Phone: INR in Blood by Coagulation assayon 01-10-2022 INR Coag (Bld) [Relative time] 1.8 {INR} [facility] Work Phone: Laboratory - Coagulationon 0 01-10-2022 PT Coag (PPP) [Time] 20.9 s 11.7-14.9 [facility] Work Phone: Basophil percentageon 2021 Chloride [Moles/Vol] 107 mmol/L 98-107 [facility] Work Phone: Glucose [Mass/Vol] 82 mg/dL 74-106 [facility] Work Phone: Potassium [Moles/Vol] 3.4 mmol/L 3.5-5.1 [facility] Work Phone: Sodium [Moles/Vol] 143 mmol/L 136-145 [facility] Work Phone: WBC (Bld) [#/Vol] 10.4 10*3/uL 4.4-11.0 [facility] Work Phone: Blood erythrocytes count (nu mber/volume)on 01-05-2022 RBC (Bld) [#/Vol] 4.27 10*6/uL 4.6-6.2 [facility] Work Phone: Blood hemoglobin measurement (mass/volume)on 01-05-2022 Hemoglobin (Bld) [Mass/Vol] 11.2 g/dL 13.0-16.5 [facility] Work Phone: Blood platelet mean volumeon 01-05-2022 Platelet mean volume (Bld) [Entitic vol] 10.3 fL 6.2-12.0 [facility] Work Phone: Determination of erythrocyte mean corpuscular volume (MCV)on 01-05-2022 MCV (RBC) [Entitic vol] 84.8 fL 80-94 [facility] Work Phone: Hematocrit Auto (Bld) [Volum e fraction]on 01-05-2022 Hematocrit (Bld) [Volume fraction] 36.2 % 40-54 [facility] Work Phone: Laboratory - Chemistry and C hemistry - challengeon 01-05-2022 CO2 [Moles/Vol] 28.0 mmol/L 21.0-32.0 [facility] Work Phone: Urea nitrogen/Creatinine [Mass ratio] 20.0 mg/mg 10-20 [facility] Work Phone: Laboratory - Hematology and Cell countson 01-05-2022 Erythrocyte distribution width (RBC) [Entitic vol] 51.8 fL 35.1-43.9 [facility] Work Phone: Erythrocyte distribution width (RBC) [Ratio] 16.8 % 11.6-14.6 [facility] Work Phone: MCH (RBC) [Entitic mass] 26.2 pg 27.0-32.0 [facility] Work Phone: MCHC Auto (RBC) [Mass/Vol]on 01-05-2022 MCHC (RBC) [Mass/Vol] 30.9 g/dL 32-36 [facility] Work Phone: No Panel Informationon 01-05 Estimated GFR (MDRD) Amer 133 mL/min >60 [facility] Work Phone: Comment on above: GFR Calc Estimated GFR (MDRD) Non-Af Amer 110 mL/min >60 [facility] Work Phone: Comment on above: Non- GFR Calc Platelets bldon 01-05-2022 Platelets (Bld) [#/Vol] 373 10*3/uL 150-450 [facility] Work Phone: Serum or plasma calcium oral urement (mass/volume)on 01-05-2022 Calcium [Mass/Vol] 8.8 mg/dL 8.5-10.1 [facility] Work Phone: Serum or plasma creatinine m easurement (mass/volume)on 01-05-2022 Creatinine [Mass/Vol] 0.75 mg/dL 0.70-1.30 [facility] Work Phone: Comment on above: The validity of the calculated GFR & GFRAA in patients over 70 years has not been determined. Clinical correlation is essential. Serum or plasma urea nitroge n measurement (mass/volume)on 01-05-2022 Urea nitrogen [Mass/Vol] 15 mg/dL 7-18 [facility] Work Phone: Thin prep Papanicolaou smear with manual screeningon 01-05-2022 Thin prep Papanicolaou smear with manual screening 8 5-15 [facility] Work Phone: Laboratory - Coagulationon 0 12-30-2021 INR Coag (Bld) [Relative time] 2.0 {INR} [facility] Work Phone: Comment on above: Critical Value > 4.0 Whole blood prothrombin time on 12-30-2021 PT Coag (Bld) [Time] 23.7 s 11.7-14.9 [facility] Work Phone: Basophil percentageon 2021 Chloride [Moles/Vol] 106 mmol/L 98-107 [facility] Work Phone: Glucose [Mass/Vol] 91 mg/dL 74-106 [facility] Work Phone: Potassium [Moles/Vol] 3.4 mmol/L 3.5-5.1 [facility] Work Phone: Sodium [Moles/Vol] 141 mmol/L 136-145 [facility] Work Phone: WBC (Bld) [#/Vol] 10.2 10*3/uL 4.4-11.0 [facility] Work Phone: Blood erythrocytes count (nu mber/volume)on 12-28-2021 RBC (Bld) [#/Vol] 4.22 10*6/uL 4.6-6.2 [facility] Work Phone: Blood hemoglobin measurement (mass/volume)on 12-28-2021 Hemoglobin (Bld) [Mass/Vol] 11.2 g/dL 13.0-16.5 [facility] Work Phone: Blood platelet mean volumeon 12-28-2021 Platelet mean volume (Bld) [Entitic vol] 10.1 fL 6.2-12.0 [facility] Work Phone: Determination of erythrocyte mean corpuscular volume (MCV)on 12-28-2021 MCV (RBC) [Entitic vol] 82.7 fL 80-94 [facility] Work Phone: Hematocrit Auto (Bld) [Volum e fraction]on 12-28-2021 Hematocrit (Bld) [Volume fraction] 34.9 % 40-54 [facility] Work Phone: Laboratory - Chemistry and C hemistry - challengeon 12-28-2021 CO2 [Moles/Vol] 30.0 mmol/L 21.0-32.0 [facility] Work Phone: Urea nitrogen/Creatinine [Mass ratio] 33.7 mg/mg 10-20 [facility] Work Phone: Laboratory - Hematology and Cell countson 12-28-2021 Erythrocyte distribution width (RBC) [Entitic vol] 49.1 fL 35.1-43.9 [facility] Work Phone: Erythrocyte distribution width (RBC) [Ratio] 16.5 % 11.6-14.6 [facility] Work Phone: MCH (RBC) [Entitic mass] 26.5 pg 27.0-32.0 [facility] Work Phone: MCHC Auto (RBC) [Mass/Vol]on 12-28-2021 MCHC (RBC) [Mass/Vol] 32.1 g/dL 32-36 [facility] Work Phone: No Panel Informationon 12-28 Estimated GFR (MDRD) Amer 174 mL/min >60 [facility] Work Phone: Comment on above: GFR Calc Estimated GFR (MDRD) Non-Af Amer 143 mL/min >60 [facility] Work Phone: Comment on above: Non- GFR Calc Platelets bldon 12-28-2021 Platelets (Bld) [#/Vol] 339 10*3/uL 150-450 [facility] Work Phone: Serum or plasma calcium oral urement (mass/volume)on 12-28-2021 Calcium [Mass/Vol] 8.6 mg/dL 8.5-10.1 [facility] Work Phone: Serum or plasma creatinine m easurement (mass/volume)on 12-28-2021 Creatinine [Mass/Vol] 0.59 mg/dL 0.70-1.30 [facility] Work Phone: Comment on above: The validity of the calculated GFR & GFRAA in patients over 70 years has not been determined. Clinical correlation is essential. Serum or plasma urea nitroge n measurement (mass/volume)on 12-28-2021 Urea nitrogen [Mass/Vol] 20 mg/dL 7-18 [facility] Work Phone: Thin prep Papanicolaou smear with manual screeningon 12-28-2021 Thin prep Papanicolaou smear with manual screening 5 5-15 [facility] Work Phone: CULTURE BLOODon 12-27-2021 Microscopic examination of blood, culture CULTURE BLOOD --> Status: F No growth at 5 days. Normal [facility] Comment on above: Performed By: #### C /BLD #### [facility] [address] [place] [address] Laboratory - Coagulationon 0 12-26-2021 INR Coag (Bld) [Relative time] 1.7 {INR} [facility] Work Phone: Comment on above: Critical Value > 4.0 Whole blood prothrombin time on 12-26-2021 PT Coag (Bld) [Time] 20.8 s 11.7-14.9 [facility] Work Phone: Basic Metabolic Panelon 12-05 Calcium [Mass/Vol] 8.8 mg/dL Normal 8.4-10.4 [facility] Comment on above: Performed By: #### C RP2, ESR, HEMDF, BMP3 ####[facility] [place], [place] Anion gap [Moles/Vol] 6 mmol/L Normal 3-13 [facility] Comment on above: Performed By: #### C RP2, ESR, HEMDF, BMP3 ####[facility] CO2 [Moles/Vol] 27 mmol/L Normal 22-30 [facility] Comment on above: Performed By: #### C RP2, ESR, HEMDF, BMP3 ####[facility] Glucose [Mass/Vol] 100 mg/dL Normal 70-100 [facility] Comment on above: Performed By: #### C RP2, ESR, HEMDF, BMP3 ####[employer] [place], [place] Urea nitrogen [Mass/Vol] 18 mg/dL High 7-17 [facility] Comment on above: Performed By: #### C RP2, ESR, HEMDF, BMP3 ####[facility] [place] [address] Creatinine [Mass/Vol] 0.73 mg/dL Normal 0.52-1.25 [facility] Comment on above: Performed By: #### C RP2, ESR, HEMDF, BMP3 ####[facility] [id number] [place], [place] eGFR OTHER > 90.0 Normal >60 [facility] Comment on above: Result [...] By: #### C RP2, ESR, HEMDF, BMP3 ####[facility] [place], [place] GFR/1.73 sq M.predicted among blacks MDRD (S/P/Bld) [Vol rate/Area] mL/min/{1.73_m2} Normal >60 [facility] Comment on above: Performed By: #### C RP2, ESR, HEMDF, BMP3 ####[facility] [place], [place] Potassium [Moles/Vol] 3.7 mmol/L Normal 3.5-5.1 [facility] Comment on above: Performed By: #### C RP2, ESR, HEMDF, BMP3 ####[facility] [id number] [place], [place] Chloride [Moles/Vol] 106 mmol/L Normal 98-107 [facility] Comment on above: Performed By: #### C RP2, ESR, HEMDF, BMP3 ####[facility] [place] [address] Sodium [Moles/Vol] 139 mmol/L Normal 135-145 [facility] Comment on above: Performed By: #### C RP2, ESR, HEMDF, BMP3 ####[facility] [place] [address] Anion gap [Moles/Vol] 6 mmol/L 3 - [...] NonAfrican Finnish mL/min 60 - PINF mL/min [facility] Comment on above: KDIGO guidelines pro vide [...] 2021 Basophil percentage 25-50 SEEN /hpf 0-5 [facility] Work Phone: Chloride [Moles/Vol] 106 mmol/L 98-[address] [facility] Work Phone: Glucose [Mass/Vol] 93 mg/dL 74-106 [facility] Work Phone: Potassium [Moles/Vol] 3.5 mmol/L 3.5-5.1 [facility] Work Phone: Sodium [Moles/Vol] 140 mmol/L 136-145 [facility] Work Phone: WBC (Bld) [#/Vol] 9.6 10*3/uL 4.4-11.0 [facility] Work Phone: Bilirubin Test strip Ql (U)o n 12-22-2021 Bilirubin Ql (U) Negative Negative [facility] Work Phone: Blood erythrocytes count (nu mber/volume)on 12-22-2021 RBC (Bld) [#/Vol] 4.34 10*6/uL 4.6-6.2 [facility] Work Phone: Blood hemoglobin measurement (mass/volume)on 12-22-2021 Hemoglobin (Bld) [Mass/Vol] 11.5 g/dL 13.0-16.5 [facility] Work Phone: Blood platelet mean volumeon 12-22-2021 Platelet mean volume (Bld) [Entitic vol] 10.8 fL 6.2-12.0 [facility] Work Phone: C-Reactive Proteinon 022 CRP [Mass/Vol] 27.2 mg/L High 0.0-9.9 [employer] Comment on above: Result Comment: . Performed By: #### C RP2, ESR, HEMDF, BMP3 ####[employer] [id number] [employer] [place] [address] CRP [Mass/Vol] 27.2 mg/L High 0 - 9.9 mg/L [facility] Comment on above: . CBC with Auto [...] - 10.7 10*3/uL [facility] Test Performed by [facility], [address] [place] [address] [facility] COVID-19, Flu A/B, and RSV C omboon 12-22-2021 Influenza A by PCR Not detected [facility] A Influenza B by PCR Not detected [facility] A RSV PCR Not Detected. Expected Result: Not Detected _ Method: Real-time, RT-PCR This assay was developed by [employer] and distributed under an Emergency Use Authorization (EUA) granted by the FDA for the qualitative detection of nucleic acids from SARS-CoV-2, Influenza A, Influenza B, and Respiratory Syncytial Virus. Provider and patient fact sheets can be found at https://www.fda.gov/media /923548/download and https://www.fda.gov/media /570122/download. [facility] SARS-CoV-2 (COVID-19) RNA MEGAN+probe Ql (Unsp spec) Not detected [facility] Test Performed by [address] [address] [facility] CR Foot Complete 3+ Views Le fton 12-22-2021 CR Foot Complete 3+ Views Left Patient Name: ANDREW SIFUENTES Diagnostic Radiology ACCESSION EXAM DATE/TIME PROCEDURE ORDERING PROVIDER [id number] 12/22/2021 00:09 EDT CR Foot Complete 3+ SANDY HIDALGO, TRAVIS Views Left CPT code 94633 Reason For Exam (CR Foot Complete 3+ [...] Transcribed Date and Time: 12/22/2021 0:21 Normal [facility] Calcium oxalate crystals det ection in urine sediment by light microscopyon 12-22-2021 Calcium oxalate crystals LM Ql (Urine sed) 1+ /hpf [facility] Work Phone: Determination of erythrocyte mean corpuscular volume (MCV)on 12-22-2021 MCV (RBC) [Entitic vol] 84.3 fL 80-94 [facility] Work Phone: ED Provider Noteon 2 [...] 79.4 kg (175 lb), SpO2 96 %. [id number] in no acute distress. 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 Tenderness: (more content not included)... Normal [facility] Hematocrit Auto (Bld) [Volum e fraction]on 12-22-2021 Hematocrit (Bld) [Volume fraction] 36.6 % 40-54 [facility] Work Phone: Hemogram w/ Autodiffon 12-22 Abs Baso Cnt 0.1 10*3/uL Normal 0.0-0.2 [facility] Comment on above: Performed By: #### C RP2, ESR, HEMDF, BMP3 ####[employer] [id number] [place] [address] Abs Neutrophile Cnt 5.9 10*3/uL Normal 1.8-7.0 [facility] Comment on above: Performed By: #### C RP2, ESR, HEMDF, BMP3 ####[address] [address] Basophils/100 WBC (Bld) 0.7 % Normal 0.0-2.0 [facility] Comment on above: Performed By: #### C RP2, ESR, HEMDF, BMP3 ####[address] [address] Eosinophils (Bld) [#/Vol] 0.2 10*3/uL Normal 0.0-0.5 [facility] Comment on above: Performed By: #### C RP2, ESR, HEMDF, BMP3 ####[address] [address] Eosinophils/100 WBC (Bld) 2.3 % Normal 1.0-6.0 [facility] Comment on above: Performed By: #### C RP2, ESR, HEMDF, BMP3 ####[address] Erythrocyte distribution width (RBC) [Ratio] 17.5 % High 11.5-14.5 [facility] Comment on above: Performed By: #### C RP2, ESR, HEMDF, BMP3 ####[address] [address] Granulocytes/100 WBC (Bld) 57.8 % Normal 40.0-80.0 [facility] Comment on above: Performed By: #### C RP2, ESR, HEMDF, BMP3 ####[address] [address] Hematocrit (Bld) [Volume fraction] 33.3 % Low 40.0-52.0 [facility] Comment on above: Performed By: #### C RP2, ESR, HEMDF, BMP3 ####[address] [address] Hemoglobin (Bld) [Mass/Vol] 11.0 g/dL Low 13.0-18.0 [facility] Comment on above: Performed By: #### C RP2, ESR, HEMDF, BMP3 ####[address] Lymphocytes (Bld) [#/Vol] 3.3 10*3/uL Normal 1.0-4.3 [facility] Comment on above: Performed By: #### C RP2, ESR, HEMDF, BMP3 ####[address] Lymphocytes/100 WBC (Bld) 33.0 % Normal 20.0-40.0 [facility] Comment on above: Performed By: #### C RP2, ESR, HEMDF, BMP3 ####[address] MCH (RBC) [Entitic mass] 26.5 pg Normal 26.0-34.0 [facility] Comment on above: Performed By: #### C RP2, ESR, HEMDF, BMP3 ####[address] MCHC 33.1 % Normal 32.0-36.0 [facility] Comment on above: Performed By: #### C RP2, ESR, HEMDF, BMP3 ####[address] MCV (RBC) [Entitic vol] 80.2 fL Normal 80.0-98.0 [facility] Comment on above: Performed By: #### C RP2, ESR, HEMDF, BMP3 ####[address] Monocytes (Bld) [#/Vol] 0.6 10*3/uL Normal 0.0-0.8 [facility] Comment on above: Performed By: #### C RP2, ESR, HEMDF, BMP3 ####[address] Monocytes/100 WBC (Bld) 6.2 % Normal 2.0-10.0 [facility] Comment on above: Performed By: #### C RP2, ESR, HEMDF, BMP3 ####[facility] [place], [place] Platelet mean volume (Bld) [Entitic vol] 8.0 fL Normal 7.4-12.4 [facility] Comment on above: Result Comment: MPV is a calculated measurement using platelet volume ratio. Performed By: #### C RP2, ESR, HEMDF, BMP3 ####[facility] [id number] [place], [place] Platelets (Bld) [#/Vol] 368 10*3/uL Normal 140-440 [facility] Comment on above: Performed By: #### C RP2, ESR, HEMDF, BMP3 ####[facility] [id number] [place], [place] RBC (Bld) [#/Vol] 4.15 10*6/uL Low 4.40-5.90 [facility] Comment on above: Performed By: #### C RP2, ESR, HEMDF, BMP3 ####[facility] [id number] [place], [place] WBC (Bld) [#/Vol] 10.1 10*3/uL Normal 3.6-10.7 [facility] Comment on above: Performed By: #### C RP2, ESR, HEMDF, BMP3 ####[facility] [id number] [place], [place] Ketones Test strip Ql (U)on 12-22-2021 Ketones Ql (U) Negative Negative [facility] Work Phone: Laboratory - Chemistry and C hemistry - challengeon 12-22-2021 CO2 [Moles/Vol] 27.0 mmol/L 21.0-32.0 [facility] Work Phone: Urea nitrogen/Creatinine [Mass ratio] 22.5 mg/mg 10-20 [facility] Work Phone: Laboratory - Hematology and Cell countson 12-22-2021 Erythrocyte distribution width (RBC) [Entitic vol] 49.1 fL 35.1-43.9 [facility] Work Phone: Erythrocyte distribution width (RBC) [Ratio] 16.1 % 11.6-14.6 [facility] Work Phone: MCH (RBC) [Entitic mass] 26.5 pg 27.0-32.0 [facility] Work Phone: MCHC Auto (RBC) [Mass/Vol]on 12-22-2021 MCHC (RBC) [Mass/Vol] 31.4 g/dL 32-36 [facility] Work Phone: Mucus LM Ql (Urine sed)on Mucus Ql (Urine sed) 0 SEEN /hpf [facility] Work Phone: Nitrite Test strip Ql (U)on 12-22-2021 Nitrite Ql (U) Positive Negative [facility] Work Phone: No Panel Informationon 12-22 Estimated GFR (MDRD) Amer 152 mL/min >60 [facility] Work Phone: Comment on above: GFR Calc Estimated GFR (MDRD) Non-Af Amer 125 mL/min >60 [facility] Work Phone: Comment on above: Non- GFR Calc Interpretation and review of laboratory results Abnormal [facility] Test Performed by [facility], [address] [place] [id number] [place] [address] LAB [facility] Platelets bldon 12-22-2021 Platelets (Bld) [#/Vol] 317 10*3/uL 150-450 [facility] Work Phone: Protein Test strip Ql (U)on 12-22-2021 Protein Ql (U) 30 mg/dl Negative [facility] Work Phone: SARS-CoV-2, Flu A/B and RSVo n 12-22-2021 SARS-CoV-2 (COVID-19) RNA MEGAN+probe Ql (Unsp spec) SARS-CoV-2 --> Status: F Not Detected. Flu A PCR --> Status: F Not Detected. Flu B PCR --> Status: F Not Detected. RSV PCR --> Status: F Not Detected. Expected Result: Not Detected _ Method: Real-time, RT-PCR This assay was developed by [employer] and distributed under an Emergency Use Authorization (EUA) granted by the FDA for the qualitative detection of nucleic acids from SARS-CoV-2, Influenza A, Influenza B, and Respiratory Syncytial Virus. Provider and patient fact sheets can be found at https://www.fda.gov/media /851415/download and https://www.fda.gov/media /884884/download. Expected Result: Not Detected _ Method: Real-time, RT-PCR This assay was developed by [employer] and distributed under an Emergency Use Authorization (EUA) granted by the FDA for the qualitative detection of nucleic acids from SARS-CoV-2, Influenza A, Influenza B, and Respiratory Syncytial Virus. Provider and patient fact sheets can be found at https://www.fda.gov/media /025292/download and https://www.fda.gov/media /940850/download. Normal [facility] Comment on above: Performed By: #### C VFLR ####[facility] [place] [address], [address] Sed Rateon 12-22-2021 Sed Rate 48 mm/h High 0-10 [facility] Comment on above: Performed By: #### C RP2, ESR, HEMDF, BMP3 ####[id number] [place] [address] Sedimentation Rateon 022 Interpretation and review of laboratory results Abnormal [facility] Sed Rate 48 mm/h High 0 - 10 mm/h [facility] Test Performed by [facility], [address] [place] [address] [facility] Serum or plasma calcium oral urement (mass/volume)on 12-22-2021 Calcium [Mass/Vol] 8.6 mg/dL 8.5-10.1 [facility] Work Phone: Serum or plasma creatinine m easurement (mass/volume)on 12-22-2021 Creatinine [Mass/Vol] 0.67 mg/dL 0.70-1.30 [facility] Work Phone: Comment on above: The validity of the calculated GFR & GFRAA in patients over 70 years has not been determined. Clinical correlation is essential. Serum or plasma urea nitroge n measurement (mass/volume)on 12-22-2021 Urea nitrogen [Mass/Vol] 15 mg/dL -18 [facility] Work Phone: Squamous epithelial cells de tection in urine sediment by light microscopyon 12-22-2021 Epithelial cells.squamous LM Ql (Urine sed) 0-5 SEEN /hpf 0-5 [facility] Work Phone: Thin prep Papanicolaou smear with manual screeningon 12-22-2021 Thin prep Papanicolaou smear with manual screening 7 5-15 [facility] Work Phone: Urine blood detectionon 12-05 RBC Ql (U) 150 /ul Negative [facility] Work Phone: RBC Ql (U) 10-25 SEEN /hpf 0-5 [facility] Work Phone: Urine clarityon 12-22-2021 Clarity (U) Sl. Cloudy Clear [facility] Work Phone: Urine color determinationon 12-22-2021 Color (U) Yellow Yellow [facility] Work Phone: Urine glucose detectionon Glucose Ql (U) Normal mg/dl Normal [facility] Work Phone: Urine leukocyte esterase det ection by dipstickon 12-22-2021 Leukocyte esterase Test strip Ql (U) 500 /ul Negative [facility] Work Phone: Urine pHon 12-22-2021 pH (U) 6.0 [pH] 5.0 - 8.0 [facility] Work Phone: Urine sediment bacteria coun t by microscopy (number/high power field)on 12-22-2021 Bacteria LM.HPF (Urine sed) [#/Area] 2 /[HPF] None Seen [facility] Work Phone: Urine specific gravity measu rementon 12-22-2021 Specific gravity (U) [Rel density] 1.020 1.002-1.030 [facility] Work Phone: Urobilinogen Auto test strip Ql (U)on 12-22-2021 Urobilinogen Ql (U) Normal mg/dl Normal [facility] Work Phone: XR FOOT LEFT (MIN 3 VIEWS)on 12-22-2021 Patient Name: ANDREW SIFUENTES Diagnostic Radiology ACCESSION EXAM DATE/TIME PROCEDURE ORDERING PROVIDER [id number] 12/22/2021 00:09 EDT CR Foot Complete 3+ SANDY HIDALGO, TRAVIS Views Left CPT code 95553 Reason For Exam (CR Foot Complete 3+ [...] JEFFREY Transcribed Date and Time: 12/22/2021 0:21 [facility] Albert Solano MD - 12/22/2021 Patient Name: ANDREW SIFUENTES Diagnostic Radiology ACCESSION EXAM DATE/TIME PROCEDURE ORDERING PROVIDER [id number] 12/22/2021 00:09 EDT CR Foot Complete 3+ SANDY HIDALGO, TRAVIS Views Left CPT code 78807 Reason For Exam (CR Foot Complete 3+ [...] Date and Time: 12/22/2021 0:21 [facility] Work Phone: Radiology Study observation (narrative) [facility] Work Phone: XR FOOT LEFT (MIN 3 VIEWS)Or dered By: Albert Solano on 12-22-2021 [facility] Work Phone: Basophil percentageon 2021 Chloride [Moles/Vol] 103 mmol/L 98-[address] [facility] [address] [facility] Work Phone: Glucose [Mass/Vol] 92 mg/dL 74-106 [facility] Work Phone: Potassium [Moles/Vol] 3.5 mmol/L 3.5-5.1 [facility] Work Phone: Sodium [Moles/Vol] 138 mmol/L 136-145 [facility] Work Phone: WBC (Bld) [#/Vol] 11.2 10*3/uL 4.4-11.0 [facility] Work Phone: Blood erythrocytes count (nu mber/volume)on 12-19-2021 RBC (Bld) [#/Vol] 4.50 10*6/uL 4.6-6.2 [facility] Work Phone: Blood hemoglobin measurement (mass/volume)on 12-19-2021 Hemoglobin (Bld) [Mass/Vol] 12.2 g/dL 13.0-16.5 [facility] Work Phone: Blood platelet mean volumeon 12-19-2021 Platelet mean volume (Bld) [Entitic vol] 11.3 fL 6.2-12.0 [facility] Work Phone: Determination of erythrocyte mean corpuscular volume (MCV)on 12-19-2021 MCV (RBC) [Entitic vol] 85.6 fL 80-94 [facility] Work Phone: Hematocrit Auto (Bld) [Volum e fraction]on 12-19-2021 Hematocrit (Bld) [Volume fraction] 38.5 % 40-54 [facility] Work Phone: Laboratory - Chemistry and C hemistry - challengeon 12-19-2021 CO2 [Moles/Vol] 30.0 mmol/L 21.0-32.0 [facility] Work Phone: Urea nitrogen/Creatinine [Mass ratio] 27.1 mg/mg 10-20 [facility] Work Phone: Laboratory - Hematology and Cell countson 12-19-2021 Erythrocyte distribution width (RBC) [Entitic vol] 50.5 fL 35.1-43.9 [facility] Work Phone: Erythrocyte distribution width (RBC) [Ratio] 16.0 % 11.6-14.6 [facility] Work Phone: MCH (RBC) [Entitic mass] 27.1 pg 27.0-32.0 [facility] Work Phone: MCHC Auto (RBC) [Mass/Vol]on 12-19-2021 MCHC (RBC) [Mass/Vol] 31.7 g/dL 32-36 [facility] Work Phone: No Panel Informationon 12-19 Estimated GFR (MDRD) Amer 153 mL/min >60 [facility] Work Phone: Comment on above: GFR Calc Estimated GFR (MDRD) Non-Af Amer 126 mL/min >60 [facility] Work Phone: Comment on above: Non- GFR Calc Platelets bldon 12-19-2021 Platelets (Bld) [#/Vol] 363 10*3/uL 150-450 [facility] Work Phone: Serum or plasma calcium oral urement (mass/volume)on 12-19-2021 Calcium [Mass/Vol] 9.5 mg/dL 8.5-10.1 [facility] Work Phone: Serum or plasma creatinine m easurement (mass/volume)on 12-19-2021 Creatinine [Mass/Vol] 0.66 mg/dL 0.70-1.30 [facility] Work Phone: Comment on above: The validity of the calculated GFR & GFRAA in patients over 70 years has not been determined. Clinical correlation is essential. Serum or plasma urea nitroge n measurement (mass/volume)on 12-19-2021 Urea nitrogen [Mass/Vol] 18 mg/dL 7-18 [facility] Work Phone: Thin prep Papanicolaou smear with manual screeningon 12-19-2021 Thin prep Papanicolaou smear with manual screening 5 5-15 [facility] Work Phone: Laboratory - Coagulationon 0 12-12-2021 INR Coag (Bld) [Relative time] 2.0 {INR} [facility] Work Phone: Comment on above: Critical Value > 4.0 Whole blood prothrombin time on 12-12-2021 PT Coag (Bld) [Time] 23.9 s 11.7-14.9 [facility] Work Phone: ANES POSTPROC EVALon 022 ANES POSTPROC EVAL Normal [facility] Laboratory - Coagulationon 0 12-08-2021 INR Coag (Bld) [Relative time] 1.8 {INR} [facility] Work Phone: Comment on above: Critical Value > 4.0 Whole blood prothrombin time on 12-08-2021 PT Coag (Bld) [Time] 21.0 s 11.7-14.9 [facility] Work Phone: Absolute lymphocyte counton 12-05-2021 Lymphocytes Auto (Unsp spec) [#/Vol] 2.97 10*3/uL 0.83-4.51 [facility] Work Phone: Basophil percentageon 2021 Basophils/100 WBC (Bld) 0.6 % 0-1 [facility] Work Phone: Chloride [Moles/Vol] 106 mmol/L 98-107 [facility] Work Phone: Eosinophils/100 WBC (Bld) 2.3 % 0-5 [facility] Work Phone: Glucose [Mass/Vol] 107 mg/dL 74-106 [facility] Work Phone: Comment on above: Fasting Glucose resu lt from 100 to 125 mg/dL suggests IMPAIRED HOMEOSTASIS per A.D.A. criteria. Neutrophils (Bld) [#/Vol] 5.6 10*3/uL 2.0-7.7 [facility] Work Phone: [phone] Neutrophils/100 WBC (Bld) 60.2 % 47-70 [facility] Work Phone: Potassium [Moles/Vol] 3.4 mmol/L 3.5-5.1 [facility] Work Phone: Sodium [Moles/Vol] 139 mmol/L 136-145 [facility] Work Phone: [phone] WBC (Bld) [#/Vol] 9.3 10*3/uL 4.4-11.0 [facility] Work Phone: Blood erythrocytes count (nu mber/volume)on 12-05-2021 RBC (Bld) [#/Vol] 4.49 10*6/uL 4.6-6.2 [facility] Work Phone: Blood hemoglobin measurement (mass/volume)on 12-05-2021 Hemoglobin (Bld) [Mass/Vol] 12.1 g/dL 13.0-16.5 [facility] Work Phone: Blood lymphocytes/100 leukoc yteson 12-05-2021 Lymphocytes/100 WBC (Bld) 32.0 % 19-41 [facility] Work Phone: Blood monocytes/100 leukocyt eson 12-05-2021 Monocytes/100 WBC (Bld) 4.7 % 0-10 [facility] Work Phone: Blood platelet mean volumeon 12-05-2021 Platelet mean volume (Bld) [Entitic vol] 10.8 fL 6.2-12.0 [facility] Work Phone: Determination of erythrocyte mean corpuscular volume (MCV)on 12-05-2021 MCV (RBC) [Entitic vol] 84.9 fL 80-94 [facility] Work Phone: Hematocrit Auto (Bld) [Volum e fraction]on 12-05-2021 Hematocrit (Bld) [Volume fraction] 38.1 % 40-54 [facility] Work Phone: INR in Blood by Coagulation assayon 12-05-2021 INR Coag (Bld) [Relative time] 1.8 {INR} [facility] Work Phone: Laboratory - Chemistry and C hemistry - challengeon 12-05-2021 CO2 [Moles/Vol] 29.0 mmol/L 21.0-32.0 [facility] Work Phone: Urea nitrogen/Creatinine [Mass ratio] 25.4 mg/mg 10-20 [facility] Work Phone: Laboratory - Coagulationon 0 12-05-2021 PT Coag (PPP) [Time] 20.5 s 11.7-14.9 [facility] Work Phone: Laboratory - Hematology and Cell countson 12-05-2021 Erythrocyte distribution width (RBC) [Entitic vol] 48.5 fL 35.1-43.9 [facility] Work Phone: Erythrocyte distribution width (RBC) [Ratio] 15.7 % 11.6-14.6 [facility] Work Phone: Immature granulocytes/100 WBC (Bld) 0.200 % 0.0-0.9 [facility] Work Phone: Comment on above: IG% - Immature Granu locytes (promyelocytes, myelocytes and metamyelocytes) > 1% indicates that a LEFT SHIFT is Present. MCH (RBC) [Entitic mass] 26.9 pg 27.0-32.0 [facility] Work Phone: Nucleated RBC/100 WBC (Bld) [Ratio] 0 % 0-5 [facility] Work Phone: MCHC Auto (RBC) [Mass/Vol]on 12-05-2021 MCHC (RBC) [Mass/Vol] 31.8 g/dL 32-36 [facility] Work Phone: No Panel Informationon 12-05 Estimated GFR (MDRD) Amer 133 mL/min >60 [facility] Work Phone: Comment on above: GFR Calc Estimated GFR (MDRD) Non-Af Amer 110 mL/min >60 [facility] Work Phone: Comment on above: Non- GFR Calc Platelets bldon 12-05-2021 Platelets (Bld) [#/Vol] 363 10*3/uL 150-450 [facility] Work Phone: Serum or plasma calcium oral urement (mass/volume)on 12-05-2021 Calcium [Mass/Vol] 9.4 mg/dL 8.5-10.1 [facility] Work Phone: Serum or plasma creatinine m easurement (mass/volume)on 12-05-2021 Creatinine [Mass/Vol] 0.75 mg/dL 0.70-1.30 [facility] Work Phone: Comment on above: The validity of the calculated GFR & GFRAA in patients over 70 years has not been determined. Clinical correlation is essential. Serum or plasma urea nitroge n measurement (mass/volume)on 12-05-2021 Urea nitrogen [Mass/Vol] 19 mg/dL 7-18 [facility] Work Phone: Thin prep Papanicolaou smear with manual screeningon 12-05-2021 Thin prep Papanicolaou smear with manual screening 4 5-15 [facility] Work Phone: Basophil percentageon 2021 Basophil percentage 0 SEEN /hpf 0-5 [facility] Work Phone: Chloride [Moles/Vol] 104 mmol/L 98-107 [facility] Work Phone: Glucose [Mass/Vol] 90 mg/dL 74-106 [facility] Work Phone: Potassium [Moles/Vol] 3.7 mmol/L 3.5-5.1 [facility] Work Phone: Comment on above: Slight Hemolysis, Re sult may be falsely increased. Sodium [Moles/Vol] 138 mmol/L 136-145 [facility] Work Phone: WBC (Bld) [#/Vol] 10.7 10*3/uL 4.4-11.0 [facility] Work Phone: Bilirubin Test strip Ql (U)o n 12-01-2021 Bilirubin Ql (U) Negative Negative [facility] Work Phone: Blood erythrocytes count (nu mber/volume)on 12-01-2021 RBC (Bld) [#/Vol] 4.33 10*6/uL 4.6-6.2 [facility] Work Phone: Blood hemoglobin measurement (mass/volume)on 12-01-2021 Hemoglobin (Bld) [Mass/Vol] 11.6 g/dL 13.0-16.5 [facility] Work Phone: Blood platelet mean volumeon 12-01-2021 Platelet mean volume (Bld) [Entitic vol] 11.2 fL 6.2-12.0 [facility] Work Phone: Determination of erythrocyte mean corpuscular volume (MCV)on 12-01-2021 MCV (RBC) [Entitic vol] 85.2 fL 80-94 [facility] Work Phone: Hematocrit Auto (Bld) [Volum e fraction]on 12-01-2021 Hematocrit (Bld) [Volume fraction] 36.9 % 40-54 [facility] Work Phone: Ketones Test strip Ql (U)on 12-01-2021 Ketones Ql (U) Negative Negative [facility] Work Phone: Laboratory - Chemistry and C hemistry - challengeon 12-01-2021 CO2 [Moles/Vol] 27.0 mmol/L 21.0-32.0 [facility] Work Phone: Urea nitrogen/Creatinine [Mass ratio] 24.0 mg/mg 10-20 [facility] Work Phone: Laboratory - Coagulationon 0 12-01-2021 INR Coag (Bld) [Relative time] 1.6 {INR} [facility] Work Phone: Comment on above: Critical Value > 4.0 Laboratory - Hematology and Cell countson 12-01-2021 Erythrocyte distribution width (RBC) [Entitic vol] 47.9 fL 35.1-43.9 [facility] Work Phone: Erythrocyte distribution width (RBC) [Ratio] 15.5 % 11.6-14.6 [facility] Work Phone: MCH (RBC) [Entitic mass] 26.8 pg 27.0-32.0 [facility] Work Phone: MCHC Auto (RBC) [Mass/Vol]on 12-01-2021 MCHC (RBC) [Mass/Vol] 31.4 g/dL 32-36 [facility] Work Phone: Mucus LM Ql (Urine sed)on Mucus Ql (Urine sed) 0 SEEN /hpf [facility] Work Phone: Nitrite Test strip Ql (U)on 12-01-2021 Nitrite Ql (U) Negative Negative [facility] Work Phone: No Panel Informationon 12-01 Estimated GFR (MDRD) Amer 133 mL/min >60 [facility] Work Phone: Comment on above: GFR Calc Estimated GFR (MDRD) Non-Af Amer 110 mL/min >60 [facility] Work Phone: Comment on above: Non- GFR Calc Platelets bldon 12-01-2021 Platelets (Bld) [#/Vol] 336 10*3/uL 150-450 [facility] Work Phone: Protein Test strip Ql (U)on 12-01-2021 Protein Ql (U) 30 mg/dl Negative [facility] Work Phone: Serum or plasma calcium oral urement (mass/volume)on 12-01-2021 Calcium [Mass/Vol] 9.4 mg/dL 8.5-10.1 [facility] Work Phone: Serum or plasma creatinine m easurement (mass/volume)on 12-01-2021 Creatinine [Mass/Vol] 0.75 mg/dL 0.70-1.30 [facility] Work Phone: Comment on above: The validity of the calculated GFR & GFRAA in patients over 70 years has not been determined. Clinical correlation is essential. Serum or plasma urea nitroge n measurement (mass/volume)on 12-01-2021 Urea nitrogen [Mass/Vol] 18 mg/dL 7-18 [facility] Work Phone: Squamous epithelial cells de tection in urine sediment by light microscopyon 12-01-2021 Epithelial cells.squamous LM Ql (Urine sed) 0-5 SEEN /hpf 0-5 [facility] Work Phone: Thin prep Papanicolaou smear with manual screeningon 12-01-2021 Thin prep Papanicolaou smear with manual screening 7 5-15 [facility] Work Phone: Urine blood detectionon 11-05 RBC Ql (U) Negative Negative [facility] Work Phone: RBC Ql (U) 0 SEEN /hpf 0-5 [facility] Work Phone: Urine clarityon 12-01-2021 Clarity (U) Clear Clear [facility] Work Phone: Urine color determinationon 12-01-2021 Color (U) Yellow Yellow [facility] Work Phone: Urine glucose detectionon Glucose Ql (U) 50 mg/dl Normal [facility] Work Phone: Urine leukocyte esterase det ection by dipstickon 12-01-2021 Leukocyte esterase Test strip Ql (U) Negative Negative [facility] Work Phone: Urine pHon 12-01-2021 pH (U) 6.0 [pH] 5.0 - 8.0 [facility] Work Phone: Urine sediment bacteria coun t by microscopy (number/high power field)on 12-01-2021 Bacteria LM.HPF (Urine sed) [#/Area] 0 /[HPF] None Seen [facility] Work Phone: Urine sediment yeast count b y microscopy (number/high powered field)on 12-01-2021 Yeast LM.HPF (Urine sed) [#/Area] 2 /[HPF] None Seen [facility] Work Phone: Urine specific gravity measu rementon 12-01-2021 Specific gravity (U) [Rel density] 1.010 1.002-1.030 [facility] Work Phone: Urobilinogen Auto test strip Ql (U)on 12-01-2021 Urobilinogen Ql (U) Normal mg/dl Normal [facility] Work Phone: Whole blood prothrombin time on 12-01-2021 PT Coag (Bld) [Time] 19.8 s 11.7-14.9 [facility] Work Phone: Laboratory - Coagulationon 0 11-28-2021 INR Coag (Bld) [Relative time] 1.6 {INR} [facility] Work Phone: Comment on above: Critical Value > 4.0 Whole blood prothrombin time on 11-28-2021 PT Coag (Bld) [Time] 18.8 s 11.7-14.9 [facility] Work Phone: INR in Blood by Coagulation assayon 11-23-2021 INR Coag (Bld) [Relative time] 2.7 {INR} [facility] Work Phone: Laboratory - Coagulationon 0 11-23-2021 PT Coag (PPP) [Time] 28.0 s 11.7-14.9 [facility] Work Phone: Laboratory - Coagulationon 0 11-22-2021 INR Coag (Bld) [Relative time] 3.8 {INR} [facility] Work Phone: Comment on above: Critical Value > 4.0 Whole blood prothrombin time on 11-22-2021 PT Coag (Bld) [Time] 42.8 s 11.7-14.9 [facility] Work Phone: INR in Blood by Coagulation assayon 11-21-2021 INR Coag (Bld) [Relative time] 3.9 {INR} [facility] Work Phone: Laboratory - Coagulationon 0 11-21-2021 PT Coag (PPP) [Time] 37.7 s 11.7-14.9 [facility] Work Phone: Whole blood prothrombin time on 11-21-2021 PT Coag (Bld) [Time] 45.5 s 11.7-14.9 [facility] Work Phone: INR in Blood by Coagulation assayon 11-14-2021 INR Coag (Bld) [Relative time] 3.1 {INR} [facility] Work Phone: Laboratory - Coagulationon 0 11-14-2021 PT Coag (PPP) [Time] 31.4 s 11.7-14.9 [facility] Work Phone: Laboratory - Coagulationon 0 11-08-2021 INR Coag (Bld) [Relative time] 2.5 {INR} [facility] Work Phone: Comment on above: Critical Value > 4.0 Whole blood prothrombin time on 11-08-2021 PT Coag (Bld) [Time] 29.0 s 11.7-14.9 [facility] Work Phone: Basophil percentageon 2021 Chloride [Moles/Vol] 106 mmol/L 98-107 [facility] Work Phone: Glucose [Mass/Vol] 100 mg/dL 74-106 [facility] Work Phone: Comment on above: Fasting Glucose resu lt from 100 to 125 mg/dL suggests IMPAIRED HOMEOSTASIS per A.D.A. criteria. Potassium [Moles/Vol] 3.7 mmol/L 3.5-5.1 [facility] Work Phone: Sodium [Moles/Vol] 140 mmol/L 136-145 [facility] Work Phone: WBC (Bld) [#/Vol] 8.8 10*3/uL 4.4-11.0 [facility] Work Phone: Blood erythrocytes count (nu mber/volume)on 11-04-2021 RBC (Bld) [#/Vol] 4.05 10*6/uL 4.6-6.2 [facility] Work Phone: Blood hemoglobin measurement (mass/volume)on 11-04-2021 Hemoglobin (Bld) [Mass/Vol] 11.1 g/dL 13.0-16.5 [facility] Work Phone: Blood platelet mean volumeon 11-04-2021 Platelet mean volume (Bld) [Entitic vol] 10.8 fL 6.2-12.0 [facility] Work Phone: Determination of erythrocyte mean corpuscular volume (MCV)on 11-04-2021 MCV (RBC) [Entitic vol] 86.9 fL 80-94 [facility] Work Phone: Hematocrit Auto (Bld) [Volum e fraction]on 11-04-2021 Hematocrit (Bld) [Volume fraction] 35.2 % 40-54 [facility] Work Phone: INR in Blood by Coagulation assayon 11-04-2021 INR Coag (Bld) [Relative time] 1.8 {INR} [facility] Work Phone: Laboratory - Chemistry and C hemistry - challengeon 11-04-2021 CO2 [Moles/Vol] 26.0 mmol/L 21.0-32.0 [facility] Work Phone: Urea nitrogen/Creatinine [Mass ratio] 18.3 mg/mg 10-20 [facility] Work Phone: Laboratory - Coagulationon 0 11-04-2021 PT Coag (PPP) [Time] 20.4 s 11.7-14.9 [facility] Work Phone: Laboratory - Hematology and Cell countson 11-04-2021 Erythrocyte distribution width (RBC) [Entitic vol] 48.1 fL 35.1-43.9 [facility] Work Phone: Erythrocyte distribution width (RBC) [Ratio] 15.0 % 11.6-14.6 [facility] Work Phone: MCH (RBC) [Entitic mass] 27.4 pg 27.0-32.0 [facility] Work Phone: MCHC Auto (RBC) [Mass/Vol]on 11-04-2021 MCHC (RBC) [Mass/Vol] 31.5 g/dL 32-36 [facility] Work Phone: No Panel Informationon 11-04 D-Dimer Quantitative (PE/DVT) 0.56 FEU/ug/m 0.27-0.49 [facility] Work Phone: Comment on above: D-Dimer ELEVATED (>0 .49): Additional studies and clinicalassessments are indicated to conclude diagnosis of:Deep Vein Thrombosis (DVT) or Pulmonary Embolism (PE) Estimated GFR (MDRD) Amer 155 mL/min >60 [facility] Work Phone: Comment on above: GFR Calc Estimated GFR (MDRD) Non-Af Amer 128 mL/min >60 [facility] Work Phone: Comment on above: Non- GFR Calc Troponin I High Sensitivity 11 pg/mL 3.0-78.0 [facility] Work Phone: Comment on above: Please Note: New [place]adum[place] t Units and Gender Specific Reference Ranges. For more information see Policy Stat Procedure [place] High Sensitivity Troponin (TNIH) and attachments. Platelets bldon 11-04-2021 Platelets (Bld) [#/Vol] 364 10*3/uL 150-450 [facility] Work Phone: Serum or plasma C reactive p rotein measurement (mass/volume)on 11-04-2021 CRP [Mass/Vol] 31.90 mg/L 0.0-3.0 [facility] Work Phone: Comment on above: C-Reactive Protein ( CRP) provides useful information for thediagnosis, therapy and monitoring of inflammatory processesand associated diseases. For the evaluation of Relative Riskfor Cardiovascular Disease, a High Sensitivity CRP (HSCRP)should be ordered. Serum or plasma calcium oral urement (mass/volume)on 11-04-2021 Calcium [Mass/Vol] 9.1 mg/dL 8.5-10.1 [facility] Work Phone: Serum or plasma creatinine m easurement (mass/volume)on 11-04-2021 Creatinine [Mass/Vol] 0.66 mg/dL 0.70-1.30 [facility] Work Phone: Comment on above: The validity of the calculated GFR & GFRAA in patients over 70 years has not been determined. Clinical correlation is essential. Serum or plasma urea nitroge n measurement (mass/volume)on 11-04-2021 Urea nitrogen [Mass/Vol] 12 mg/dL 7-18 [facility] Work Phone: Thin prep Papanicolaou smear with manual screeningon 11-04-2021 Thin prep Papanicolaou smear with manual screening 8 5-15 [facility] Work Phone: Complete Urinalysison 2021 Appearance (U) Clear Normal Clear [facility] Comment on above: Result Comment: . Performed By: #### C UA2 ####[employer] [place], [place] Bacteria Moderate Abnormal Negative [facility] Comment on above: Result Comment: . Performed By: #### C UA2 ####[facility] [employer] [id number] [place], [place] Bilirubin,Urine Negative Normal Negative [facility] [employer] Comment on above: Result Comment: . Performed By: #### C UA2 ####[employer] [place], [place] Cast, Hyaline Negative Normal Negative [facility] Comment on above: Result Comment: . Performed By: #### C UA2 ####[employer] [place], [place] Color (U) Yellow Normal Lt. Yellow [facility] Comment on above: Result Comment: . Performed By: #### C UA2 ####[employer] [id number] [place], [place] Glucose Ql (U) Normal Normal Normal (<70) [facility] Comment on above: Result Comment: . Performed By: #### C UA2 ####[address] [address] [place], [place] Ketone,Urine Negative Normal Negative [facility] Comment on above: Result Comment: . Performed By: #### C UA2 ####[facility] [id number] [place], [place] Leukocytes,Urine Negative Normal Negative [facility] Comment on above: Result Comment: . Performed By: #### C UA2 ####[id number] [place], [place] Mucous Threads Few Normal Negative [facility] Comment on above: Result Comment: . Performed By: #### C UA2 ####[id number] [place], [place] Nitrites,Urine Negative Normal Negative [facility] Comment on above: Result Comment: . Performed By: #### C UA2 ####[id number] [place], [place] Occult Blood,Urine 0.1 mg/dL Abnormal Negative [facility] Comment on above: Result Comment: . Performed By: #### C UA2 ####[address] [place], [place] pH,Urine 5.5 Normal 5.0-8.0 [facility] Comment on above: Result Comment: . Performed By: #### C UA2 ####[address] [place], [place] Protein (U) [Mass/Vol] 10 mg/dL Abnormal Negative [facility] Comment on above: Result Comment: . Performed By: #### C UA2 ####[address] [place], [place] RBC, Urine 26 - 50 Abnormal 0-2 [facility] Comment on above: Result Comment: . Performed By: #### C UA2 ####[address] [place], [place] Specific [place],Urine 1.023 Normal 1.005 - 1.030 [facility] Comment on above: Result Comment: . Performed By: #### C UA2 ####[address] [place], [place] Squamous Epithelial Negative Normal 3-5 [facility] Comment on above: Result Comment: . Performed By: #### C UA2 ####[address] [place], [place] Urobilinogen,Urine Normal Normal Normal (0-1) [facility] Comment on above: Result Comment: . Performed By: #### C UA2 ####[facility] [place] [address] WBC, Urine 0 - 2 Normal 0-5 [facility] Comment on above: Result Comment: . Performed By: #### C UA2 ####[facility] [place] [address] Urinalysison 11-01-2021 Appearance (U) Clear Clear NA [...] Protein (U) [Mass/Vol] 10 mg/dL Abnormal Negative [facility] Comment on above: . RBC, UA 26-50 Abnormal 0 - 2 /[HPF] [facility] Comment on above: . Specific [place], Urine 1.023 [facility] Comment on above: . Squam Epithel, UA Negative 3 - 5 /[HPF] [facility] Comment on above: . Urobilinogen, Urine Normal Normal ( 0-1) mg/dL [facility] Comment on above: . WBC, UA 0-2 0 - 5 /[HPF] [facility] Comment on above: . Test Performed by [facility], [address] [place] [address] [facility] Basic Metabolic Panelon 10-06 Anion gap [Moles/Vol] 6 mmol/L Normal 3-13 [facility] Comment on above: Performed By: #### P T/AP, TROPN, BMP3, HEMDF #### [facility] [address] [place], [place] Calcium [Mass/Vol] 9.1 mg/dL Normal 8.4-10.4 [facility] Comment on above: Performed By: #### P T/AP, TROPN, BMP3, HEMDF #### [facility] [address] [place], [place] CO2 [Moles/Vol] 28 mmol/L Normal 22-30 [facility] Comment on above: Performed By: #### P T/AP, TROPN, BMP3, HEMDF #### [place] [address] [place], [place] Glucose [Mass/Vol] 120 mg/dL High 70-100 [facility] Comment on above: Performed By: #### P T/AP, TROPN, BMP3, HEMDF #### [place] [address] [place], [place] Urea nitrogen [Mass/Vol] 17 mg/dL Normal 7-17 [facility] Comment on above: Performed By: #### P T/AP, TROPN, BMP3, HEMDF #### [place] [address] [place], [place] Creatinine [Mass/Vol] 0.65 mg/dL Normal 0.52-1.25 [facility] Comment on above: Performed By: #### P T/AP, TROPN, BMP3, HEMDF #### [place] [address] [place], [place] eGFR OTHER > 90.0 Normal >60 [facility] Comment on above: Result [...] #### P T/AP, TROPN, BMP3, HEMDF #### [address] GFR/1.73 sq M.predicted among blacks MDRD (S/P/Bld) [Vol rate/Area] mL/min/{1.73_m2} Normal >60 [facility] Comment on above: Performed By: #### P T/AP, TROPN, BMP3, HEMDF #### [address] Potassium [Moles/Vol] 3.8 mmol/L Normal 3.5-5.1 [facility] Comment on above: Performed By: #### P T/AP, TROPN, BMP3, HEMDF #### [address] Chloride [Moles/Vol] 101 mmol/L Normal 98-107 [facility] Comment on above: Performed By: #### P T/AP, TROPN, BMP3, HEMDF #### [address] Sodium [Moles/Vol] 134 mmol/L Low 135-145 [facility] Comment on above: Performed By: #### P T/AP, TROPN, BMP3, HEMDF #### [address] Anion gap [Moles/Vol] 6 mmol/L 3 - 13 mmol/L [facility] Calcium [Mass/Vol] 9.1 mg/dL 8.4 - 10. 4 mg/dL [facility] Chloride [Moles/Vol] 101 mmol/L 98 - 10 7 mmol/L [facility] CO2 [Moles/Vol] 28 mmol/L 22 - 30 mmol/L [facility] Creatinine [Mass/Vol] 0.65 mg/dL 0.52 - 1.25 [...] - 17 mg/dL [facility] Test Performed by [id number] [place] [address] LAB [facility] CBC with Auto Differentialon 10-31-2021 [...] - 10.7 10*3/uL [facility] Test Performed by [facility], [address] [place] [id number] [place] [address] LAB [facility] CR Abdomen APon 10-31-2021 CR Abdomen AP Patient Name: ANDREW SIFUENTES Diagnostic Radiology ACCESSION EXAM DATE/TIME PROCEDURE ORDERING PROVIDER [id number] 10/31/2021 20:36 EDT CR Abdomen AP [id number] MARTÍNEZ CPT code 58445 Reason For Exam (CR Abdomen AP) 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, 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 CHEST PORTABLE [...] Transcribed Date and Time: 10/31/2021 8:49 Normal [facility] CR Chest Portableon 11-01-19 22 CR Chest Portable [id number] Radiology ACCESSION EXAM DATE/TIME PROCEDURE ORDERING PROVIDER [id number] 10/31/2021 20:36 EDT CR Chest Portable [id number] MYRON GALINDO CPT code 08083 Reason For Exam (CR Chest Portable) AMS [...] Transcribed Date and Time: 10/31/2021 8:49 Normal [facility] CT HEAD WO CONTRASTon 2021 Patient Name[id number] Computed Tomography ACCESSION EXAM DATE/TIME PROCEDURE ORDERING PROVIDER [id number] 10/31/2021 20:[address] Head or Brain w/o [id number] -MYRON DURAN Contrast CPT code 93372 Reason For Exam (CT Head or Brain w/o Contrast) AMS, previous TAKE OFF WORKER shunt Report Examination: CT Head Clinical Information: AMS, previous TAKE OFF WORKER shunt Comparison: 10/26/2021, MRI 10/27/2021 Findings: Serial [...] J Transcribed Date and Time: 10/31/2021 8:54 [facility] Carla Wong MD - 10/31/2021 [facility] Name[id number] Computed Tomography ACCESSION EXAM DATE/TIME PROCEDURE ORDERING PROVIDER [id number] 10/31/2021 20:[address] Head or Brain w/o [id number] -MYRON DURAN Contrast CPT code 35515 Reason For Exam (CT Head or Brain w/o Contrast) AMS, previous TAKE OFF WORKER shunt Report Examination: CT Head Clinical Information: AMS, previous TAKE OFF WORKER shunt Comparison: 10/26/2021, MRI 10/27/2021 Findings: Serial [...] Brain w/o Contrast Patient [facility]: [id number] Computed Tomography ACCESSION EXAM DATE/TIME PROCEDURE ORDERING PROVIDER [id number] 10/31/2021 20:[address] Head or Brain w/o [id number] -MYRON DURAN Contrast CPT code 69524 Reason For Exam (CT Head or Brain w/o Contrast) AMS, previous TAKE OFF WORKER shunt Report Examination: CT Head Clinical Information: AMS, previous TAKE OFF WORKER shunt Comparison: 10/26/2021, MRI 10/27/2021 Findings: Serial [...] Transcribed Date and Time: 10/31/2021 8:54 Normal [facility] ED Provider Noteon ED Provider Note Emergency Department Encounter [facility] EMERGENCY DEPT Patient: Andrew Sifuentes : [...] [employer] Dante Kim MD 10/31/21 3861 Normal [facility] ED Provider Note [facility] EMERGENCY DEPT EMERGENCY DEPARTMENT ENCOUNTER Pt Name: Andrew Sifuentes Birthdate 1950 Date of evaluation: 10/31/2021 Provider: Myron Duran MD CHIEF COMPLAINT Chief Complaint Patient presents with ? Altered Mental Status Pt presents to ED via [facility] [place] for complaint listed. Pt is from [facility]. Pt's LKW was 1000 hours today. [...] have a history of hydrocephalus with a TAKE OFF WORKER shunt. 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 REVIEW OF [...] (HCC) ? Kidney stone ? Neuropathy ? TAKE OFF WORKER (ventriculoperitoneal) shunt status SURGICAL HISTORY Past Surgical [...] of Transportati (more content not included)... 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 : 1950 Requested By: MYRON DURAN Order Number: [id number] Reading MD: Dante Kim Measurements Intervals [place] Rate: 91 P: 41 DE: 154 QRS: 50 QRSD: 147 T: 8 QT: 385 QTc: 474 Interpretive Statements Sinus rhythm Right bundle branch block Electronically Signed On 10-31-2021 20:36:25 EDT by Dante Kim [facility] CARDIOLOGY Dante Kim M D - 10/31/2021 [facility] Test Date: 2021-10-31 Pat Name: ANDREW SIFUENTES Department: ER Room: 40 Gender: M 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 : 1950 Requested By: MYRON DURAN Order Number: [id number] Reading MD: Dante Kim Measurements Intervals [place] Rate: 91 P: 41 DE: 154 QRS: 50 QRSD: 147 T: 8 QT: 385 QTc: 474 Interpretive Statements Sinus rhythm Right bundle branch block Electronically Signed On 10-31-2021 20:36:25 EDT by Dante Kim [facility] Work Phone: EKG 12 Lead - Chest PainOrde red By: Dante Kim on 10-31-2021 [facility] Work Phone: Hemogram w/ Autodiffon 10-31 Abs Baso Cnt 0.1 10*3/uL Normal 0.0-0.2 [facility] Comment on above: Performed By: #### P T/AP, TROPN, BMP3, HEMDF #### [facility] [address] [place] [address] Abs Neutrophile Cnt 6.0 10*3/uL Normal 1.8-7.0 [facility] Comment on above: Performed By: #### P T/AP, TROPN, BMP3, HEMDF #### [place] [address] [place], [place] Basophils/100 WBC (Bld) 1.1 % Normal 0.0-2.0 [facility] Comment on above: Performed By: #### P T/AP, TROPN, BMP3, HEMDF #### [place] [address] [place], [place] Eosinophils (Bld) [#/Vol] 0.2 10*3/uL Normal 0.0-0.5 [facility] Comment on above: Performed By: #### P T/AP, TROPN, BMP3, HEMDF #### [place] [address] [place], [place] Eosinophils/100 WBC (Bld) 2.3 % Normal 1.0-6.0 [facility] Comment on above: Performed By: #### P T/AP, TROPN, BMP3, HEMDF #### [address] Erythrocyte distribution width (RBC) [Ratio] 17.2 % High 11.5-14.5 [facility] Comment on above: Performed By: #### P T/AP, TROPN, BMP3, HEMDF #### [address] Granulocytes/100 WBC (Bld) 61.8 % Normal 40.0-80.0 [facility] Comment on above: Performed By: #### P T/AP, TROPN, BMP3, HEMDF #### [place] [address] [place], [place] Hematocrit (Bld) [Volume fraction] 35.0 % Low 40.0-52.0 [facility] Comment on above: Performed By: #### P T/AP, TROPN, BMP3, HEMDF #### [place] [address] [place], [place] Hemoglobin (Bld) [Mass/Vol] 11.3 g/dL Low 13.0-18.0 [facility] Comment on above: Performed By: #### P T/AP, TROPN, BMP3, HEMDF #### [place] [address] [place], [place] Lymphocytes (Bld) [#/Vol] 2.8 10*3/uL Normal 1.0-4.3 [facility] Comment on above: Performed By: #### P T/AP, TROPN, BMP3, HEMDF #### [place] [address] [place], [place] Lymphocytes/100 WBC (Bld) 29.2 % Normal 20.0-40.0 [facility] Comment on above: Performed By: #### P T/AP, TROPN, BMP3, HEMDF #### [address] MCH (RBC) [Entitic mass] 27.5 pg Normal 26.0-34.0 [facility] Comment on above: Performed By: #### P T/AP, TROPN, BMP3, HEMDF #### [address] [place], [place] MCHC 32.3 % Normal 32.0-36.0 [facility] Comment on above: Performed By: #### P T/AP, TROPN, BMP3, HEMDF #### [address] MCV (RBC) [Entitic vol] 85.0 fL Normal 80.0-98.0 [facility] Comment on above: Performed By: #### P T/AP, TROPN, BMP3, HEMDF #### [place] [address] [place], [place] Monocytes (Bld) [#/Vol] 0.5 10*3/uL Normal 0.0-0.8 [facility] Comment on above: Performed By: #### P T/AP, TROPN, BMP3, HEMDF #### [place] [address] [place], [place] Monocytes/100 WBC (Bld) 5.6 % Normal 2.0-10.0 [facility] Comment on above: Performed By: #### P T/AP, TROPN, BMP3, HEMDF #### [facility] [address] [place], [place] Platelet mean volume (Bld) [Entitic vol] 8.6 fL Normal 7.4-12.4 [facility] Comment on above: Result Comment: MPV is a calculated measurement using platelet volume ratio. Performed By: #### P T/AP, TROPN, BMP3, HEMDF #### [facility] [address] [place], [place] Platelets (Bld) [#/Vol] 348 10*3/uL Normal 140-440 [facility] Comment on above: Performed By: #### P T/AP, TROPN, BMP3, HEMDF #### [place] [address] [place], [place] RBC (Bld) [#/Vol] 4.12 10*6/uL Low 4.40-5.90 [facility] Comment on above: Performed By: #### P T/AP, TROPN, BMP3, HEMDF #### [facility] [address] [place], [place] WBC (Bld) [#/Vol] 9.7 10*3/uL Normal 3.6-10.7 [facility] Comment on above: Performed By: #### P T/AP, TROPN, BMP3, HEMDF #### [facility] [address] [place], [place] Laboratory - Coagulationon 0 10-31-2021 INR Coag (Bld) [Relative time] 2.0 {INR} [facility] Work Phone: Comment on above: Critical Value > 4.0 No Panel Informationon 10-31 Radiology Study observation (narrative) [facility] Work Phone: PROTIME/INR & PTTon 11-01-19 aPTT Coag (Bld) [Time] 39.2 s High 20.0 - 30.5 s [facility] Comment on above: NOTE: The therapeuti c time for Heparin anticoagulation, based on Xa activity inhibition, is an APTT of 46-80 seconds. INR Coag (Bld) [Relative time] 1.9 {INR} High [facility] Comment on above: Recommended Anticoag ulant [...] Interpretation and review of laboratory results Abnormal [facility] PT Coag (PPP) [Time] 19.8 s High 9.0 - 12.0 s [facility] Comment on above: . Test Performed by [facility], [address] [place] [address] [facility] Protime AND APTTon 2 aPTT Coag (Bld) [Time] 39.2 s High 20.0-30.5 [facility] Comment on above: Result Comment: NOTE : The therapeutic time for Heparin anticoagulation, based on Xa activity inhibition, is an APTT of 46-80 seconds. Performed By: #### P T/AP, TROPN, BMP3, HEMDF #### [address] [address] INR 1.9 High 0.9-1.1 [facility] Comment on above: Result [...] #### P T/AP, TROPN, BMP3, HEMDF #### [address] [address] PT Coag (PPP) [Time] 19.8 s High 9.0-12.0 [facility] Comment on above: Result Comment: . Performed By: #### P T/AP, TROPN, BMP3, HEMDF #### [address] [address] Troponin Ion 10-31-2021 Troponin I.cardiac [Mass/Vol] ng/mL Normal 0.000-0.034 [facility] Comment on above: Result Comment: . Performed By: #### P T/AP, TROPN, BMP3, HEMDF #### [facility] [address] [place] [address] Troponin x1on 10-31-2021 Troponin I.cardiac [Mass/Vol] ng/mL 0.000 - 0.034 ng/mL [facility] Comment on above: . 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, 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 CHEST PORTABLE [...] Radiology ACCESSION EXAM DATE/TIME PROCEDURE ORDERING PROVIDER [id number] 10/31/2021 20:36 EDT CR Abdomen AP [id number] -MYRON DURAN CPT code 10693 Reason For Exam (CR Abdomen AP) 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, 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 CHEST PORTABLE [...] and Time: 10/31/2021 8:49 [facility] Work Phone: [facility] Work Phone: XR CHEST PORTABLEon 11-01-19 Patient Name: ANDREW SIFUENTES Diagnostic Radiology ACCESSION EXAM DATE/TIME PROCEDURE ORDERING PROVIDER [id number] 10/31/2021 20:36 EDT CR Chest Portable [id number] -MYRON DURAN CPT code 13531 Reason For Exam (CR Chest Portable) AMS [...] 8:49 [facility] Huang Munoz MD - 10/31/2021 Patient Name: ANDREW SIFUENTES Diagnostic Radiology ACCESSION EXAM DATE/TIME PROCEDURE ORDERING PROVIDER [id number] 10/31/2021 20:36 EDT CR Chest Portable [id number] MYRON GALINDO CPT code 35477 Reason For Exam (CR Chest Portable) AMS [...] Date and Time: 10/31/2021 8:49 [facility] Work Phone: XR CHEST PORTABLEOrdered By: Huang Reynoso on 10-31-2021 [facility] Work Phone: Lupus Anticoagulanton 2021 DRVVT Confirmation Test Not Applicable Negative ratio [facility] Work Phone: dRVVT Screen 38 [facility] Work Phone: Hex Phosph Neut Test Not Applicable Negative NA [facility] Work Phone: Interpretation and review of laboratory results Abnormal [facility] Work Phone: LUPUS INTERPRETATION See Note [facility] Work Phone: Comment on above: Lupus [...] has not already been performed. Performed by [facility], [address], [facility] [place] [address] [email or web address], Quiana Castro MD - Lab. Director Platelet Neutralization Not Applicable Negative NA [facility] Work Phone: PTT-D Heparin Neutralized 48 [facility] Work Phone: PTT-LA 55 High [facility] Work Phone: Reptilase Tm 17.6 <=21.9 sec [facility] Work Phone: [phone] Thrombin Time 25.3 High [facility] Work Phone: [facility] Work Phone: Lupus Anticoagulant Reflexiv e Panelon 10-29-2021 aPTT Coag (Bld) [Time] 55 s High 32-48 [facility] Comment on above: Performed By: #### C OVAG #### [facility] [address] [place] [address] aPTT Coag (Bld) [Time] 48 s Normal 32-48 [facility] Comment on above: Performed By: #### C OVAG #### [facility] [address] [place] [address] DRVVT 1:1 Mix Not Applicable Normal 33-44 [facility] Work Phone: Comment on above: Performed By: #### C OVAG #### [facility] [address] [place] [address] dRVVT Confirmation Not Applicable Normal Negative [facility] Comment on above: Performed By: #### C OVAG #### [facility] [address] [place] [address] dRVVT Screen 38 sec Normal 33-44 [facility] Comment on above: Performed By: #### C OVAG #### [facility] [address] [place] [address] Hexagonal Phospholipid Neutral Reflex Not Applicable Normal Negative [facility] Comment on above: Performed By: #### C OVAG #### [facility] [address] [place] [address] Lupus Anticoagulant Interpretation See Note Normal [facility] Comment on above: Result [...] has not already been performed. Performed by [facility], [address] [place] [id number] [email or web address], Quiana Castro MD - Lab. Director Performed By: #### C OVAG #### [facility] [address] [place] [address] Platelet Neutralization (PTT-D, Confirm) Not Applicable Normal Negative [facility] Comment on above: Performed By: #### C OVAG #### [facility] [address] [place] [address] PT Coag (PPP) [Time] 14.7 s Normal 12.0-15.5 [facility] Work Phone: Comment on above: Performed By: #### C OVAG #### [facility] [address] [place] [address] PTT-D 1:1 Mix Not Applicable Normal 32-48 [facility] Work Phone: Comment on above: Performed By: #### C OVAG #### [facility] [address] [place] [address] Reptilase Time 17.6 sec Normal <=21.9 [facility] Comment on above: Performed By: #### C OVAG #### [facility] [address] [place] [address] Thrombin Time 25.3 sec High 14.7-19.5 [facility] Comment on above: Performed By: #### C OVAG #### [facility] [address] [place] [address] POCT COVID-19, Antigenon SARS-CoV-2 Nucleocapsid Antigen Negative Negative NA [facility] Comment on above: A negative result does not rule out the possibility of SARS-CoV-2 infection. NAAT-based methods should be considered for symptomatic patients presenting greater than seven days after onset of symptoms. Method: Lateral flow immunoassay. Fact sheets for healthcare providers and patients can be found at the following sites: https://www.fda.gov/media/538411/download https://www.fda.gov/media/801705/download Test Performed by [facility], [address] [facility] [place] [id number] [place] [address] LAB [facility] Prothrombin Timeon INR 2.7 High 0.9-1.1 [facility] Comment on above: Result [...] Infarction Performed By: #### P T #### [facility] [address] [place] [address] PT Coag (PPP) [Time] 27.4 s High 9.0-12.0 [facility] Comment on above: Result Comment: . Performed By: #### P T #### [facility] [address] [place] [address] Protime-INRon 10-29-2021 INR Coag (Bld) [Relative time] 2.7 {INR} High [facility] Work Phone: Comment on above: Recommended [...] Interpretation and review of laboratory results Abnormal [facility] Work Phone: PT Coag (PPP) [Time] 27.4 s High 9.0 - 12.0 s [facility] Work Phone: [phone] Comment on above: . Test Performed by [facility], [address], [place], [place] [address] [facility] LAB [facility] Work Phone: [phone] SARS-CoV-2 Antigenon 022 SARS-CoV-2 Antigen Negative Normal Negative [facility] Comment on above: Result Comment: A negative result does not rule out the possibility of SARS-CoV-2 infection. NAAT-based methods should be considered for symptomatic patients presenting greater than seven days after onset of symptoms. Method: Lateral flow immunoassay. Fact sheets for healthcare providers and patients can be found at the following sites: https://www.[employer].gov/media/351126/download https://www.[employer].gov/media/082537/download Performed By: #### C OVAG #### [facility] [address] [place] [address] CBCon 10-28-2021 Hematocrit (Bld) [Volume fraction] 33.4 % Low 40.0 - 52.0 % [facility] Work Phone: Hemoglobin (Bld) [Mass/Vol] 11.0 g/dL Low 13.0 - 18.0 g/dL [facility] Work Phone: Interpretation and review of laboratory results Abnormal [facility] Work Phone: MCH (RBC) [Entitic mass] 27.8 pg 26.0 - 34.0 pg [facility] Work Phone: MCHC (RBC) [Mass/Vol] 32.8 % 32.0 - 36.0 % [facility] Work Phone: MCV (RBC) [Entitic vol] 84.8 fL 80.0 - 98.0 fL [facility] Work Phone: Platelet distribution width (Bld) [Ratio] 17.1 % High 11.5 - 14.5 % [facility] Work Phone: Platelet mean volume (Bld) [Entitic vol] 8.3 fL 7.4 - 12.4 fL [facility] Work Phone: Comment on above: MPV is a calculated measurement using platelet volume ratio. Platelets (Bld) [#/Vol] 344 10*3/uL 140 - 440 10*3/uL [facility] Work Phone: [phone] RBC (Bld) [#/Vol] 3.94 10*6/uL Low 4.40 - 5.9 0 10*6/uL [facility] Work Phone: [phone] WBC (Bld) [#/Vol] 10.0 10*3/uL 3.6 - 10.7 10*3/uL [facility] Work Phone: Test Performed by [facility], [address] [place], [place] [id number] [place] [address] LAB [facility] Work Phone: Comp Metabolic Panelon 10-28 ALP [Catalytic activity/Vol] 103 U/L Normal 38-126 [facility] Comment on above: Performed By: #### C A19O, LUPUS #### The performing lab is in the report. #### NSEO #### [facility] #### HEMDF, LDH3, BMP3, MG3, PT, CEA2 #### [facility] [address] [place] [address] #### B2GPM, B2GPA, B2GPG #### [facility] [address] [place] [address] ALT [Catalytic activity/Vol] 26 U/L Normal 0-49 [facility] Comment on above: Result Comment: The ALT test is performed by an updated assay method. Please note that the reference intervals have been changed and are now sex specific. Performed By: #### C A19O, LUPUS #### The performing lab is in the report. #### NSEO #### [facility] #### HEMDF, LDH3, BMP3, MG3, PT, CEA2 #### [facility] [address] [place] [address] #### B2GPM, B2GPA, B2GPG #### [address] AST [Catalytic activity/Vol] 24 U/L Normal 15-46 [facility] Comment on above: Performed By: #### C A19O, LUPUS #### The performing lab is in the report. #### NSEO #### [facility] #### HEMDF, LDH3, BMP3, MG3, PT, CEA2 #### [place] [address] [place] #### B2GPM, B2GPA, B2GPG #### [address] Calcium [Mass/Vol] 9.1 mg/dL Normal 8.4-10.4 [facility] Comment on above: Performed By: #### C A19O, LUPUS #### The performing lab is in the report. #### NSEO #### [facility] #### HEMDF, LDH3, BMP3, MG3, PT, CEA2 #### [address] [place] [address] #### B2GPM, B2GPA, B2GPG #### [address] Glucose [Mass/Vol] 117 mg/dL High 70-100 [facility] Comment on above: Performed By: #### C A19O, LUPUS #### The performing lab is in the report. #### NSEO #### [facility] #### HEMDF, LDH3, BMP3, MG3, PT, CEA2 #### [place] [address] [place] [address] #### B2GPM, B2GPA, B2GPG #### [address] Urea nitrogen [Mass/Vol] 16 mg/dL Normal 7-17 [facility] Comment on above: Performed By: #### C A19O, LUPUS #### The performing lab is in the report. #### NSEO #### [facility] #### HEMDF, LDH3, BMP3, MG3, PT, CEA2 #### [place] [address] [place] [address] #### B2GPM, B2GPA, B2GPG #### [address] Anion gap [Moles/Vol] 5 mmol/L Normal 3-13 [facility] Comment on above: Performed By: #### C A19O, LUPUS #### The performing lab is in the report. #### NSEO #### [facility] #### HEMDF, LDH3, BMP3, MG3, PT, CEA2 #### [place] [address] [facility] [place] [address] #### B2GPM, B2GPA, B2GPG #### [address] Bilirubin [Mass/Vol] 0.4 mg/dL Normal 0.2-1.3 [facility] Comment on above: Performed By: #### C A19O, LUPUS #### The performing lab is in the report. #### NSEO #### [facility] #### HEMDF, LDH3, BMP3, MG3, PT, CEA2 #### [place] [address] [place] [address] #### B2GPM, B2GPA, B2GPG #### [address] CO2 [Moles/Vol] 29 mmol/L Normal 22-30 [facility] Comment on above: Performed By: #### C A19O, LUPUS #### The performing lab is in the report. #### NSEO #### [facility] #### HEMDF, LDH3, BMP3, MG3, PT, CEA2 #### [place] [address] [place] [address] #### B2GPM, B2GPA, B2GPG #### [address] Creatinine [Mass/Vol] 0.71 mg/dL Normal 0.52-1.25 [facility] Comment on above: Performed By: #### C A19O, LUPUS #### The performing lab is in the report. #### NSEO #### [facility] #### HEMDF, LDH3, BMP3, MG3, PT, CEA2 #### [facility] [address] [place], [place] #### B2GPM, B2GPA, B2GPG #### [address] eGFR OTHER > 90.0 Normal >60 [facility] Comment on above: Result [...] HEMDF, LDH3, BMP3, MG3, PT, CEA2 #### [facility] [address] [facility] [place] [address] #### B2GPM, B2GPA, B2GPG #### [address] GFR/1.73 sq M.predicted among blacks MDRD (S/P/Bld) [Vol rate/Area] mL/min/{1.73_m2} Normal >60 [facility] Comment on above: Performed By: #### C A19O, LUPUS #### The performing lab is in the report. #### NSEO #### [facility] #### HEMDF, LDH3, BMP3, MG3, PT, CEA2 #### [facility] [address] [place] [address] #### B2GPM, B2GPA, B2GPG #### [address] Protein [Mass/Vol] 7.1 g/dL Normal 6.3-8.2 [facility] Comment on above: Performed By: #### C A19O, LUPUS #### The performing lab is in the report. #### NSEO #### [facility] #### HEMDF, LDH3, BMP3, MG3, PT, CEA2 #### [facility] [address] [place] [address] #### B2GPM, B2GPA, B2GPG #### [address] Potassium [Moles/Vol] 3.5 mmol/L Normal 3.5-5.1 [facility] Comment on above: Performed By: #### C A19O, LUPUS #### The performing lab is in the report. #### NSEO #### [facility] #### HEMDF, LDH3, BMP3, MG3, PT, CEA2 #### [facility] [address] [place] [address] #### B2GPM, B2GPA, B2GPG #### [address] Sodium [Moles/Vol] 138 mmol/L Normal 135-145 [facility] Comment on above: Performed By: #### C A19O, LUPUS #### The performing lab is in the report. #### NSEO #### [facility] #### HEMDF, LDH3, BMP3, MG3, PT, CEA2 #### [facility] [address] [place] [address] #### B2GPM, B2GPA, B2GPG #### [address] Albumin [Mass/Vol] 3.7 g/dL Normal 3.5-5.0 [facility] Comment on above: Performed By: #### C A19O, LUPUS #### The performing lab is in the report. #### NSEO #### [facility] #### HEMDF, LDH3, BMP3, MG3, PT, CEA2 #### [facility] [address] [place] [address] #### B2GPM, B2GPA, B2GPG #### [address] Chloride [Moles/Vol] 104 mmol/L Normal 98-107 [facility] Comment on above: Performed By: #### C A19O, LUPUS #### The performing lab is in the report. #### NSEO #### [facility] #### HEMDF, LDH3, BMP3, MG3, PT, CEA2 #### [facility] [address] [place] [address] #### B2GPM, B2GPA, B2GPG #### [address] Comprehensive Metabolic Pane kiel 10-28-2021 Albumin [Mass/Vol] 3.7 g/dL 3.5 - 5.0 g/dL [facility] Work Phone: ALP (Bld) [Catalytic activity/Vol] 103 U/L 38 - 126 U/L [facility] Work Phone: ALT [Catalytic activity/Vol] 26 U/L 0 - 49 U/L [facility] Work Phone: Comment on above: The [...] - 10. 4 mg/dL [facility] Work Phone: [phone] Chloride [Moles/Vol] 104 mmol/L 98 - 10 7 mmol/L [facility] Work Phone: CO2 [Moles/Vol] 29 mmol/L 22 - 30 mmol/L [facility] Work Phone: Creatinine [Mass/Vol] 0.71 mg/dL 0.52 - 1.25 mg/dL [facility] Work Phone: EGFR IF NonAfrican Finnish >90.0 >60 mL/min [facility] Work Phone: Comment on above: KDIGO guidelines [...] g/dL 6.3 - 8.2 g/dL [facility] Work Phone: GFR/1.73 sq M.predicted among blacks MDRD (S/P/Bld) [Vol rate/Area] mL/min/{1.73_m2} >60 mL/min [facility] Work Phone: Glucose [Mass/Vol] 117 mg/dL High 70 - 100 mg/dL [facility] Work Phone: Interpretation and review of laboratory results Abnormal [facility] Work Phone: Potassium [Moles/Vol] 3.5 mmol/L 3.5 - 5.1 mmol/L [facility] Work Phone: Sodium [Moles/Vol] 138 mmol/L 135 - 145 mmol/L [facility] Work Phone: Urea nitrogen (BldV) [Mass/Vol] 16 mg/dL 7 - 17 mg/dL [facility] Work Phone: Test Performed by [facility], [address] [place] [id number] [place] [address] LAB [facility] Work Phone: Hemogramon 10-28-2021 Erythrocyte distribution width (RBC) [Ratio] 17.1 % High 11.5-14.5 [facility] Comment on above: Performed By: #### C A19O, LUPUS #### The performing lab is in the report. #### NSEO #### [facility] #### HEMDF, LDH3, BMP3, MG3, PT, CEA2 #### [address] [address] #### B2GPM, B2GPA, B2GPG #### [address] [address] Hematocrit (Bld) [Volume fraction] 33.4 % Low 40.0-52.0 [facility] Comment on above: Performed By: #### C A19O, LUPUS #### The performing lab is in the report. #### NSEO #### [facility] #### HEMDF, LDH3, BMP3, MG3, PT, CEA2 #### [address] [address] #### B2GPM, B2GPA, B2GPG #### [address] Hemoglobin (Bld) [Mass/Vol] 11.0 g/dL Low 13.0-18.0 [facility] Comment on above: Performed By: #### C A19O, LUPUS #### The performing lab is in the report. #### NSEO #### [facility] #### HEMDF, LDH3, BMP3, MG3, PT, CEA2 #### [place] [address] [place], [place] #### B2GPM, B2GPA, B2GPG #### [address] MCH (RBC) [Entitic mass] 27.8 pg Normal 26.0-34.0 [facility] Comment on above: Performed By: #### C A19O, LUPUS #### The performing lab is in the report. #### NSEO #### [facility] #### HEMDF, LDH3, BMP3, MG3, PT, CEA2 #### [address] [place], [place] #### B2GPM, B2GPA, B2GPG #### [address] MCHC 32.8 % Normal 32.0-36.0 [facility] Comment on above: Performed By: #### C A19O, LUPUS #### The performing lab is in the report. #### NSEO #### [facility] #### HEMDF, LDH3, BMP3, MG3, PT, CEA2 #### [address] [place], [place] #### B2GPM, B2GPA, B2GPG #### [address] MCV (RBC) [Entitic vol] 84.8 fL Normal 80.0-98.0 [facility] Comment on above: Performed By: #### C A19O, LUPUS #### The performing lab is in the report. #### NSEO #### [facility] #### HEMDF, LDH3, BMP3, MG3, PT, CEA2 #### [facility] [address] [place] [address] #### B2GPM, B2GPA, B2GPG #### [address] Platelet mean volume (Bld) [Entitic vol] 8.3 fL Normal 7.4-12.4 [facility] Comment on above: Result Comment: MPV is a calculated measurement using platelet volume ratio. Performed By: #### C A19O, LUPUS #### The performing lab is in the report. #### NSEO #### [facility] #### HEMDF, LDH3, BMP3, MG3, PT, CEA2 #### [address] [facility] [place] #### B2GPM, B2GPA, B2GPG #### [address] Platelets (Bld) [#/Vol] 344 10*3/uL Normal 140-440 [facility] Comment on above: Performed By: #### C A19O, LUPUS #### The performing lab is in the report. #### NSEO #### [facility] #### HEMDF, LDH3, BMP3, MG3, PT, CEA2 #### [address] [facility] [place] #### B2GPM, B2GPA, B2GPG #### [address] RBC (Bld) [#/Vol] 3.94 10*6/uL Low 4.40-5.90 [facility] Comment on above: Performed By: #### C A19O, LUPUS #### The performing lab is in the report. #### NSEO #### [facility] #### HEMDF, LDH3, BMP3, MG3, PT, CEA2 #### [address] [place] [place] [address] #### B2GPM, B2GPA, B2GPG #### [facility] [address] [place] [address] WBC (Bld) [#/Vol] 10.0 10*3/uL Normal 3.6-10.7 [facility] Comment on above: Performed By: #### C A19O, LUPUS #### The performing lab is in the report. #### NSEO #### [facility] #### HEMDF, LDH3, BMP3, MG3, PT, CEA2 #### [facility] [address] [place] [address] #### B2GPM, B2GPA, B2GPG #### [facility] [address] [place], [place] Neuron Specific Enolaseon Neuron Specific Enolase 20.8 Normal [facility] Comment on above: Result Comment: Neur on Specific Enolase, Serum 20.8 ng/mL H (Ref Interval: <=12.7) NSE and Hgb are elevated in the specimen. The elevated NSE may be a result of hemolysis as NSE is expressed in red blood cells. Interpret results with caution. INTERPRETIVE INFORMATION: Neuron Specific Enolase in Serum This assay is performed using the [employer] NSE Kryptor Immunoassay. Results obtained with different assay methods or kits cannot be used interchangeably. Results cannot be interpreted as absolute evidence of the presence or absence of malignant disease. This test was developed and its performance characteristics determined by [employer]. It has not been cleared or approved by the [place] Food and Drug Administration. This test was performed in a CLIA certified laboratory and is intended for clinical purposes. Performed By: #### C OVAG #### [facility] [address] [place] [address] Neuron specific enolase (NSE )on 10-28-2021 Neuron Specific Enolase 20.8 [facility] Work Phone: Comment on above: Neuron Specific Enol ase, Serum 20.8 ng/mL H (Ref Interval: <=12.7) NSE and Hgb are elevated in the specimen. The elevated NSE may be a result of hemolysis as NSE is expressed in red blood cells. Interpret results with caution. INTERPRETIVE INFORMATION: Neuron Specific Enolase in Serum This assay is performed using the [employer] NSE Kryptor Immunoassay. Results obtained with different assay methods or kits cannot be used interchangeably. Results cannot be interpreted as absolute evidence of the presence or absence of malignant disease. This test was developed and its performance characteristics determined by [employer]. It has not been cleared or approved by the [place] Food and Drug Administration. This test was performed in a CLIA certified laboratory and is intended for clinical purposes. 1 [facility] Work Phone: Prothrombin Timeon 2 INR 3.1 High 0.9-1.1 [facility] Comment on above: Result [...] HEMDF, LDH3, BMP3, MG3, PT, CEA2 #### [facility] [address] [place] [address] #### B2GPM, B2GPA, B2GPG #### [address] [phone] PT Coag (PPP) [Time] 30.8 s High 9.0-12.0 [facility] Comment on above: Result Comment: . Performed By: #### C A19O, LUPUS #### The performing lab is in the report. #### NSEO #### [facility] #### HEMDF, LDH3, BMP3, MG3, PT, CEA2 #### [facility] [address] [place] [address] #### B2GPM, B2GPA, B2GPG #### [address] [phone] Protime-INRon 10-28-2021 INR Coag (Bld) [Relative time] 3.1 {INR} High [facility] Work Phone: Comment on above: Recommended [...] Interpretation and review of laboratory results Abnormal [facility] Work Phone: PT Coag (PPP) [Time] 30.8 s High 9.0 - 12.0 s [employer] Work Phone: Comment on above: . Test Performed by [facility], [address] [place], [place] [id number] [place] [address] LAB [facility] Work Phone: MRI BRAIN WO CONTRASTon 10-06 Patient Name: ANDREW SIFUENTES [facility] ACCESSION EXAM DATE/TIME PROCEDURE ORDERING PROVIDER [id number] 10/27/2021 13:14 EDT MRI Brain w/o Contrast UNASSIGNED, UNASSIGNED CPT code 62373 Reason For Exam (MRI Brain w/o Contrast) stroke Patient has TAKE OFF WORKER shunt in place, please follow Radiology protocol [...] OSAMA Transcribed Date and Time: 10/27/2021 2:39 [facility] Venus Loyd MD - 10/27/2021 Patient Name: ANDREW SIFUENTES [facility] Res[facility] Imaging ACCESSION EXAM DATE/TIME PROCEDURE ORDERING PROVIDER [id number] 10/27/2021 13:14 EDT MRI Brain w/o Contrast UNASSIGNED, UNASSIGNED CPT code 08019 Reason For Exam (MRI Brain w/o Contrast) stroke Patient has TAKE OFF WORKER shunt in place, please follow Radiology protocol [...] Brain w/o Contrast Patient Name: ANDREW VELAZQUEZ [facility]#: [id number] Magnetic Resonance Imaging ACCESSION EXAM DATE/TIME PROCEDURE ORDERING PROVIDER [id number] 10/27/2021 13:14 EDT MRI Brain w/o Contrast UNASSIGNED, UNASSIGNED CPT code 57497 Reason For Exam (MRI Brain w/o Contrast) stroke Patient has TAKE OFF WORKER shunt in place, please follow Radiology protocol [...] Transcribed Date and Time: 10/27/2021 2:39 Normal [facility] Prothrombin Timeon INR 2.1 High 0.9-1.1 [facility] Comment on above: Result [...] Infarction Performed By: #### P T #### [facility] [address] [place] [address] PT Coag (PPP) [Time] 21.9 s High 9.0-12.0 [facility] Work Phone: Comment on above: . Result Comment: . Performed By: #### P T #### [facility] [address] [place] [address] Protime-INRon 10-27-2021 INR Coag (Bld) [Relative time] 2.1 {INR} High [facility] Work Phone: Comment on above: Recommended [...] Interpretation and review of laboratory results Abnormal [facility] Work Phone: Test Performed by [facility], [address] [place], [place], [place] [address] [facility] Work Phone: CT HEAD WO CONTRASTon 2021 Patient Name: ANDREW SIFUENTES Computed Tomography ACCESSION EXAM DATE/TIME PROCEDURE ORDERING PROVIDER [id number] 10/26/2021 11:[address] Head or Brain w/o JUNIE PINEDA ALLISON Contrast CPT code 30460 Reason For Exam (CT Head or Brain w/o Contrast) hydrocephalus. thank you Report CLINICAL INFORMATION: Hydrocephalus. Shunt. 3 mm axial cuts through the head are obtained without IV contrast. The examination is compared to a previous study dated 06/29/2014. FINDINGS: Old TAKE OFF WORKER shunt tubing is noted bilaterally. The new [...] are clear. IMPRESSION: 1. Old and new TAKE OFF WORKER shunt tubing. 2. No hydrocephalus. 3. Atrophy and evidence of small-vessel ischemic disease. 4. No CT evidence of an acute intracranial process. Report Dictated on --- Final --- Dictating Physician: MD SOLANO JEFFREY Signed Date and Time: 10/26/2021 11:42 am Signed by: MD SOLANO JEFFREY Transcribed Date and Time: 10/26/2021 11:43 [facility] Albert Solano MD - 10/26/2021 [id number] Comput[facility] Tomography ACCESSION EXAM DATE/TIME PROCEDURE ORDERING PROVIDER [id number] 10/26/2021 11:[address] Head or Brain w/o JUNIE PINEDA ALLISON Contrast CPT code 86519 Reason For Exam (CT Head or Brain w/o Contrast) hydrocephalus. thank you Report CLINICAL INFORMATION: Hydrocephalus. Shunt. 3 mm axial cuts through the head are obtained without IV contrast. The examination is compared to a previous study dated 06/29/2014. FINDINGS: Old TAKE OFF WORKER shunt tubing is noted bilaterally. The new [...] are clear. IMPRESSION: 1. Old and new TAKE OFF WORKER shunt tubing. 2. No hydrocephalus. 3. Atrophy [...] Tomography ACCESSION EXAM DATE/TIME PROCEDURE ORDERING PROVIDER [id number] 10/26/2021 11:[address] Head or Brain w/o JUNIE PINEDA, SARINA Contrast CPT code 19869 Reason For Exam (CT Head or Brain w/o Contrast) hydrocephalus. thank you Report CLINICAL INFORMATION: Hydrocephalus. Shunt. 3 mm axial cuts through the head are obtained without IV contrast. The examination is compared to a previous study dated 06/29/2014. FINDINGS: Old TAKE OFF WORKER shunt tubing is noted bilaterally. The new [...] are clear. IMPRESSION: 1. Old and new TAKE OFF WORKER shunt tubing. 2. No hydrocephalus. 3. Atrophy and evidence of small-vessel ischemic disease. 4. No CT evidence of an acute intracranial process. Report Dictated on Final Dictating Physician: MD SOLANO JEFFREY Signed Date and Time: 10/26/2021 11:42 am Signed by: MD SOLANO JEFFREY Transcribed Date and Time: 10/26/2021 11:43 Normal [facility] EEG awake and asleepon 10-26 Bony Tompkins MD 10/26/2021 4:06 PM [facility] [address] [place] [address] ROUTINE EEG REPORT Patient Name: Andrew Sifuentes : 1950 Date of Study: 10/26/2021 Duration Recorded: 23 minutes EEG#: [id number] HEALTH PROGRAM DIRECTOR: CASTRO PROVIDER REQUESTING STUDY: Dr. Barreto REASON FOR EXAM: seizures HISTORY: Andrew Sifuentes is a 71 y.o. 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 At present patient is awake, follows commands, was able to tell his name, and that he was in hospital but not oriented to time. Per documentation patient had NCSE in May 2021, was on Vimpat, but it was discontinued as there was no evidence of recurrent seizures in July 2021 by Neurology at [facility], per daughter patient was on Dilantin for 31 yrs. Per daughter patient had seizures in the past and also felt he had staring episodes this morning. Per daughter patient has been essentially bed bound in [place] since May 2021 but prior to that [...] with video was carried out at [facility]. Scalp electrodes were positioned in person by an surgical technologist, following patient education, according to the 10-20 International system of electrode placement and maintained for integrity and quality of the recording. EEG data with video was recorded continuously and digitally stored. The surgical technologist reviewed all automated detections and manual [...] No normal vari (more content not included)... [facility] Work Phone: [facility] Work Phone: No Panel Informationon 10-26 Radiology Study observation (narrative) [facility] Work Phone: Prothrombin Timeon 2 INR 1.9 High 0.9-1.1 [facility] Comment on above: Result Comment: Harry [...] Infarction Performed By: #### C OVAG #### [facility] [address] [place] [address] PT Coag (PPP) [Time] 19.7 s High 9.0-12.0 [facility] Comment on above: Result Comment: . Performed By: #### C OVAG #### [facility] [address] [place] [address] Protime-INRon 10-26-2021 INR Coag (Bld) [Relative time] 1.9 {INR} High [facility] Work Phone: Comment on above: Recommended [...] Interpretation and review of laboratory results Abnormal [facility] Work Phone: PT Coag (PPP) [Time] 19.7 s High 9.0 - 12.0 s [facility] Work Phone: Comment on above: . Test Performed by [facility], [address] [place], [place] [id number] [place] [address] LAB [facility] Work Phone: CA 19-9on 10-25-2021 CA 19-9 17 U/mL Normal <=35 [facility] Work Phone: Comment on above: INTERPRETIVE [...] or absence of malignant disease. Performed By: [place] [address] Strategy Specialist: Quiana Castro MD Result Comment: INTE [...] or absence of malignant disease. Performed By: [place] [address] Strategy Specialist: Quiana Castro MD Performed By: #### C OVAG #### [facility] [address] [place] [address] Cancer Antigen 19-9on 2021 [facility] Work Phone: Prothrombin Timeon INR 1.5 High 0.9-1.1 [facility] Comment on above: Result Comment: Harry [...] Infarction Performed By: #### P T #### [facility] [address] [place] [address] PT Coag (PPP) [Time] 15.6 s High 9.0-12.0 [facility] Comment on above: Result Comment: . Performed By: #### P T #### [facility] [address] [place] [address] Protime-INRon 10-25-2021 INR Coag (Bld) [Relative time] 1.5 {INR} High [facility] Work Phone: Comment on above: Recommended [...] review of laboratory results Abnormal [facility] Work Phone: PT Coag (PPP) [Time] 15.6 s High 9.0 - 12.0 s [facility] Work Phone: Comment on above: . Test Performed by [facility], [address] [place], [place] [address] [facility] Work Phone: B-2 Glycoprotein (IGA)on Beta-2 Glyco 1 IgA <2.0 U/mL [facility] Work Phone: Comment on above: Interpretive Informa tion: Results equal to or greater than 20 U/mL = POSITIVE Results less than 20 U/mL = NEGATIVE B2 Glycoprotein I (IgM) Abon 10-24-2021 Beta-2 Glyco 1 IgM <1.5 U/mL [facility] Work Phone: Comment on above: Interpretive Informa tion: Results equal to or greater than 20 U/mL = POSITIVE Results less than 20 U/mL = NEGATIVE B2 Glycoprotein I Igg Abon 0 10-24-2021 Beta-2 Glyco 1 IgG <1.4 U/mL [facility] Work Phone: Comment on above: Interpretive Informa tion: Results equal to or greater than 20 U/mL = POSITIVE Results less than 20 U/mL = NEGATIVE Basic Metabolic Panelon 10-06 Anion gap [Moles/Vol] 8 mmol/L Normal 3-13 [facility] Comment on above: Performed By: #### C A19O, LUPUS #### The performing lab is in the report. #### NSEO #### [facility] #### HEMDF, LDH3, BMP3, MG3, PT, CEA2 #### [facility] [address] [place] [address] #### B2GPM, B2GPA, B2GPG #### [facility] [address] [place] [address] Calcium [Mass/Vol] 8.8 mg/dL Normal 8.4-10.4 [facility] Comment on above: Performed By: #### C A19O, LUPUS #### The performing lab is in the report. #### NSEO #### [facility] #### HEMDF, LDH3, BMP3, MG3, PT, CEA2 #### [facility] [address] [place] [address] #### B2GPM, B2GPA, B2GPG #### [address] CO2 [Moles/Vol] 25 mmol/L Normal 22-30 [facility] Comment on above: Performed By: #### C A19O, LUPUS #### The performing lab is in the report. #### NSEO #### [facility] #### HEMDF, LDH3, BMP3, MG3, PT, CEA2 #### [facility] [address] [place] [address] #### B2GPM, B2GPA, B2GPG #### [address] Creatinine [Mass/Vol] 0.74 mg/dL Normal 0.52-1.25 [facility] Comment on above: Performed By: #### C A19O, LUPUS #### The performing lab is in the report. #### NSEO #### [facility] #### HEMDF, LDH3, BMP3, MG3, PT, CEA2 #### [place] [address] [place] [address] #### B2GPM, B2GPA, B2GPG #### [address] eGFR OTHER > 90.0 Normal >60 [facility] Comment on above: Result [...] HEMDF, LDH3, BMP3, MG3, PT, CEA2 #### [facility] [address] [place] [address] #### B2GPM, B2GPA, B2GPG #### [address] GFR/1.73 sq M.predicted among blacks MDRD (S/P/Bld) [Vol rate/Area] mL/min/{1.73_m2} Normal >60 [facility] Comment on above: Performed By: #### C Mary LouO, LUPUS #### The performing lab is in the report. #### NSEO #### [facility] #### HEMDF, LDH3, BMP3, MG3, PT, CEA2 #### [facility] [address] [place] [address] #### B2GPM, B2GPA, B2GPG #### [address] Glucose [Mass/Vol] 116 mg/dL High 70-100 [facility] [facility] Comment on above: Performed By: #### C A19O, LUPUS #### The performing lab is in the report. #### NSEO #### [facility] #### HEMDF, LDH3, BMP3, MG3, PT, CEA2 #### [facility] [address] [place] [address] #### B2GPM, B2GPA, B2GPG #### [address] Urea nitrogen [Mass/Vol] 19 mg/dL High 7-17 [facility] Comment on above: Performed By: #### C A19O, LUPUS #### The performing lab is in the report. #### NSEO #### [facility] #### HEMDF, LDH3, BMP3, MG3, PT, CEA2 #### [place] [address] [place] [address] #### B2GPM, B2GPA, B2GPG #### [address] Chloride [Moles/Vol] 107 mmol/L Normal 98-107 [facility] Comment on above: Performed By: #### C A19O, LUPUS #### The performing lab is in the report. #### NSEO #### [facility] #### HEMDF, LDH3, BMP3, MG3, PT, CEA2 #### [place] [address] [place] [address] #### B2GPM, B2GPA, B2GPG #### [address] Potassium [Moles/Vol] 3.9 mmol/L Normal 3.5-5.1 [facility] Comment on above: Performed By: #### C A19O, LUPUS #### The performing lab is in the report. #### NSEO #### [facility] #### HEMDF, LDH3, BMP3, MG3, PT, CEA2 #### [address] [place] [address] #### B2GPM, B2GPA, B2GPG #### [address] Sodium [Moles/Vol] 140 mmol/L Normal 135-145 [facility] Comment on above: Performed By: #### C A19O, LUPUS #### The performing lab is in the report. #### NSEO #### [facility] #### HEMDF, LDH3, BMP3, MG3, PT, CEA2 #### [place] [address] [place] [address] #### B2GPM, B2GPA, B2GPG #### [address] [address] Anion gap [Moles/Vol] 8 mmol/L 3 - [...] - 17 mg/dL [facility] Test Performed by [facility], [address] [place], [place], [place] [id number] [place] [address] LAB [facility] Beta-2 Glycoprotein I IgAon 06-20-2022 Beta-2 Glycoprotein I IgA < 2.0 Normal [facility] Comment on above: Result Comment: Inte rpretive Information: Results equal to or greater than 20 U/mL = POSITIVE Results less than 20 U/mL = NEGATIVE Performed By: #### C OVAG #### [facility] [address] [place] [address] Beta-2 Glycoprotein I IgGon 10-24-2021 Beta-2 Glycoprotein I IgG < 1.4 Normal [facility] Comment on above: Result Comment: Inte rpretive Information: Results equal to or greater than 20 U/mL = POSITIVE Results less than 20 U/mL = NEGATIVE Performed By: #### C OVAG #### [facility] [address] [place] [address] Beta-2 Glycoprotein I IgMon 10-24-2021 Beta-2 Glycoprotein I IgM < 1.5 Normal [facility] Comment on above: Result Comment: Inte rpretive Information: Results equal to or greater than 20 U/mL = POSITIVE Results less than 20 U/mL = NEGATIVE Performed By: #### C OVAG #### [facility] [address] [place] [address] No Panel Informationon 10-24 [facility] Test Performed by [facility], [address] [place] [id number] [place] [address] LAB [facility] Work Phone: PROTEIN C FUNCTIONALon 10-24 Interpretation and review of laboratory results Abnormal [facility] Protein C-Functional 185 % High 83 - [...] reference intervals for this test in the [employer] [facility] Test [facility] ([facility]). Performed by [facility], [address] [facility] [address] www.[employer], Quiana Castro MD - Lab. Director Protein C, Functionalon 10-06 Protein C, Functional 185 % High 83-168 [facility] Comment on above: Result Comment: [...] reference intervals for this test in the [employer] [facility] Test [facility] ([facility]). Performed by [facility], [address] [facility] [address] www.[employer], Quiana Castro MD - Lab. Director Performed By: #### P T #### [facility] [address] [place] [address] Protein S, Functionalon 06-2 Protein S, Functional 138 % Normal 66-143 [facility] Comment on above: INTERPRETIVE INFORMA [...] reference intervals for this test in the [employer] [facility] Test [facility] ([facility]). Performed by [facility], [address] [facility] [address] www.[employer], Quiana Castro MD - Lab. Director Result [...] reference intervals for this test in the [employer] [facility] Test [facility] ([facility]). Performed by [facility], [address] [facility],[place] [id number] www.[employer], Quiana Castro MD - Lab. Director Performed By: #### P T #### [facility] [address] [place] [place] [address] Prothrombin Timeon INR 1.2 High 0.9-1.1 [facility] Comment on above: Result [...] HEMDF, LDH3, BMP3, MG3, PT, CEA2 #### [place] [address] [place] [address] #### B2GPM, B2GPA, B2GPG #### [address] [phone] PT Coag (PPP) [Time] 12.6 s High 9.0-12.0 [facility] Comment on above: Result Comment: . Performed By: #### C A19O, LUPUS #### The performing lab is in the report. #### NSEO #### [facility] #### HEMDF, LDH3, BMP3, MG3, PT, CEA2 #### [address] [place] [address] #### B2GPM, B2GPA, B2GPG #### [address] [address] Protime-INRon 10-24-2021 INR Coag (Bld) [Relative time] 1.2 {INR} High [facility] Comment on above: Recommended Anticoag ulant [...] Interpretation and review of laboratory results Abnormal [facility] PT Coag (PPP) [Time] 12.6 s High 9.0 - 12.0 s [facility] Comment on above: . Test Performed by [facility], [address] LAB [facility] Basic Metabolic Panelon 10-05 Anion gap [Moles/Vol] 10 mmol/L Normal 3-13 [facility] Comment on above: Performed By: #### C A19O, LUPUS #### The performing lab is in the report. #### NSEO #### [facility] #### HEMDF, LDH3, BMP3, MG3, PT, CEA2 #### [place] [address] [place] [address] #### B2GPM, B2GPA, B2GPG #### [address] [phone] Calcium [Mass/Vol] 9.6 mg/dL Normal 8.4-10.4 [facility] Comment on above: Performed By: #### C A19O, LUPUS #### The performing lab is in the report. #### NSEO #### [facility] #### HEMDF, LDH3, BMP3, MG3, PT, CEA2 #### [facility] [address] [place] [address] #### B2GPM, B2GPA, B2GPG #### [address] [address] CO2 [Moles/Vol] 27 mmol/L Normal 22-30 [facility] Comment on above: Performed By: #### C A19O, LUPUS #### The performing lab is in the report. #### NSEO #### [facility] #### HEMDF, LDH3, BMP3, MG3, PT, CEA2 #### [address] [place] [address] #### B2GPM, B2GPA, B2GPG #### [address] Glucose [Mass/Vol] 109 mg/dL High 70-100 [facility] Comment on above: Performed By: #### C A19O, LUPUS #### The performing lab is in the report. #### NSEO #### [facility] #### HEMDF, LDH3, BMP3, MG3, PT, CEA2 #### [address] [place] [address] #### B2GPM, B2GPA, B2GPG #### [address] Urea nitrogen [Mass/Vol] 18 mg/dL High 7-17 [facility] Comment on above: Performed By: #### C A19O, LUPUS #### The performing lab is in the report. #### NSEO #### [facility] #### HEMDF, LDH3, BMP3, MG3, PT, CEA2 #### [address] [place] [address] #### B2GPM, B2GPA, B2GPG #### [address] Creatinine [Mass/Vol] 0.82 mg/dL Normal 0.52-1.25 [facility] Comment on above: Performed By: #### C A19O, LUPUS #### The performing lab is in the report. #### NSEO #### [facility] #### HEMDF, LDH3, BMP3, MG3, PT, CEA2 #### [address] [place] [address] #### B2GPM, B2GPA, B2GPG #### [address] GFR/1.73 sq M.predicted among blacks MDRD (S/P/Bld) [Vol rate/Area] mL/min/{1.73_m2} Normal >60 [facility] Comment on above: Performed By: #### C A19O, LUPUS #### The performing lab is in the report. #### NSEO #### [facility] #### HEMDF, LDH3, BMP3, MG3, PT, CEA2 #### [facility] [address] [place] [address] #### B2GPM, B2GPA, B2GPG #### [facility] [address] [place] [address] GFR/1.73 sq M.predicted among non-blacks MDRD (S/P/Bld) [Vol rate/Area] 89.9 mL/min/{1.73_m2} Normal >60 [facility] Comment on above: Result [...] HEMDF, LDH3, BMP3, MG3, PT, CEA2 #### [facility] [address] [place] [address] #### B2GPM, B2GPA, B2GPG #### [facility] [address] [place] [address] Chloride [Moles/Vol] 104 mmol/L Normal 98-107 [facility] Comment on above: Performed By: #### C A19O, LUPUS #### The performing lab is in the report. #### NSEO #### [facility] #### HEMDF, LDH3, BMP3, MG3, PT, CEA2 #### [place] [address] [place] [address] #### B2GPM, B2GPA, B2GPG #### [address] Potassium [Moles/Vol] 3.9 mmol/L Normal 3.5-5.1 [facility] Comment on above: Performed By: #### C A19O, LUPUS #### The performing lab is in the report. #### NSEO #### [facility] #### HEMDF, LDH3, BMP3, MG3, PT, CEA2 #### [place] [address] [place] [address] #### B2GPM, B2GPA, B2GPG #### [address] Sodium [Moles/Vol] 142 mmol/L Normal 135-145 [facility] Comment on above: Performed By: #### C A19O, LUPUS #### The performing lab is in the report. #### NSEO #### [facility] #### HEMDF, LDH3, BMP3, MG3, PT, CEA2 #### [place] [address] [place] [address] #### B2GPM, B2GPA, B2GPG #### [address] Anion gap [Moles/Vol] 10 mmol/L 3 - 13 mmol/L [facility] Work Phone: Calcium [Mass/Vol] 9.6 mg/dL 8.4 - 10. 4 mg/dL [facility] Work Phone: [phone] Chloride [Moles/Vol] 104 mmol/L 98 - 10 7 mmol/L [facility] Work Phone: [phone] CO2 [Moles/Vol] 27 mmol/L 22 - 30 mmol/L [facility] Work Phone: Creatinine [Mass/Vol] 0.82 mg/dL 0.52 - 1.25 mg/dL [facility] Work Phone: EGFR IF NonAfrican Finnish 89.9 mL/min >60 [facility] Work Phone: [phone] Comment on above: KDIGO guidelines pro [...] [Vol rate/Area] mL/min/{1.73_m2} >60 mL/min [facility] Work Phone: [phone] Glucose [Mass/Vol] 109 mg/dL High 70 - 100 mg/dL [facility] Work Phone: [phone] Interpretation and review of laboratory results Abnormal [facility] Work Phone: [phone] Potassium [Moles/Vol] 3.9 mmol/L 3.5 - 5.1 mmol/L [facility] Work Phone: Sodium [Moles/Vol] 142 mmol/L 135 - 145 mmol/L [facility] Work Phone: Urea nitrogen (BldV) [Mass/Vol] 18 mg/dL High 7 - 17 mg/dL [facility] Work Phone: CBC with Auto Differentialon 10-23-2021 [...] (Bld) 3.9 % 1.0 - 6.0 % [facility] Work Phone: [phone] Granulocytes/100 WBC (Bld) 64.0 % 40.0 - 80.0 % [facility] Work Phone: [phone] Hematocrit (Bld) [Volume fraction] 35.1 % Low 40.0 - 52.0 % [facility] Work Phone: [phone] Hemoglobin (Bld) [Mass/Vol] 11.6 g/dL Low 13.0 - 18.0 g/dL [facility] Work Phone: [phone] Interpretation and review of laboratory results Abnormal [facility] Work Phone: [phone] Lymphocytes (Bld) [#/Vol] 2.6 10*3/uL 1.0 - 4.3 10*3/uL [facility] Work Phone: [phone] Lymphocytes/100 WBC (Bld) 25.0 % 20.0 - 40.0 % [facility] Work Phone: [phone] MCH (RBC) [Entitic mass] 28.4 pg 26.0 - 34.0 pg [facility] Work Phone: [phone] MCHC (RBC) [Mass/Vol] 33.1 % 32.0 - 36.0 % [facility] Work Phone: [phone] MCV (RBC) [Entitic vol] 85.9 fL 80.0 - 98.0 fL [facility] Work Phone: [phone] Monocytes (Bld) [#/Vol] [...] High 140 - 440 10*3/uL [facility] Work Phone: [phone] RBC (Bld) [#/Vol] 4.08 10*6/uL Low 4.40 - 5.9 0 10*6/uL [facility] Work Phone: [phone] WBC (Bld) [#/Vol] 10.3 10*3/uL 3.6 - 10.7 10*3/uL [facility] Work Phone: [phone] Test Performed by [facility], [address] LAB [facility] Work Phone: [phone] CEAon 10-23-2021 CEA 0.8 ng/mL 0.0 - 3.0 ng/mL [facility] Work Phone: [phone] Test Performed by [facility], [address] LAB [employer] [employer] Work Phone: [phone] Carcinoembryonic Agon 2021 Carcinoembryonic Ag. 0.8 ng/mL Normal 0.0-3.0 [facility] Comment on above: Performed By: #### C A19O, LUPUS #### The performing lab is in the report. #### NSEO #### [facility] #### HEMDF, LDH3, BMP3, MG3, PT, CEA2 #### [facility] [address] [place] [address] #### B2GPM, B2GPA, B2GPG #### [address] Hemogram w/ Autodiffon 10-23 Abs Baso Cnt 0.1 10*3/uL Normal 0.0-0.2 [facility] Comment on above: Performed By: #### C A19O, LUPUS #### The performing lab is in the report. #### NSEO #### [facility] #### HEMDF, LDH3, BMP3, MG3, PT, CEA2 #### [facility] [address] [place], [place] #### B2GPM, B2GPA, B2GPG #### [address] Abs Neutrophile Cnt 6.6 10*3/uL Normal 1.8-7.0 [facility] Comment on above: Performed By: #### C A19O, LUPUS #### The performing lab is in the report. #### NSEO #### [facility] #### HEMDF, LDH3, BMP3, MG3, PT, CEA2 #### [facility] [address] [place], [place] #### B2GPM, B2GPA, B2GPG #### [address] Basophils/100 WBC (Bld) 1.1 % Normal 0.0-2.0 [facility] Comment on above: Performed By: #### C A19O, LUPUS #### The performing lab is in the report. #### NSEO #### [facility] #### HEMDF, LDH3, BMP3, MG3, PT, CEA2 #### [facility] [address] [place], [place] #### B2GPM, B2GPA, B2GPG #### [address] Eosinophils (Bld) [#/Vol] 0.4 10*3/uL Normal 0.0-0.5 [facility] Comment on above: Performed By: #### C A19O, LUPUS #### The performing lab is in the report. #### NSEO #### [facility] #### HEMDF, LDH3, BMP3, MG3, PT, CEA2 #### [facility] [address] [place] [address] #### B2GPM, B2GPA, B2GPG #### [address] [phone] Eosinophils/100 WBC (Bld) 3.9 % Normal 1.0-6.0 [facility] Comment on above: Performed By: #### C A19O, LUPUS #### The performing lab is in the report. #### NSEO #### [facility] #### HEMDF, LDH3, BMP3, MG3, PT, CEA2 #### [facility] [address] [place] [address] #### B2GPM, B2GPA, B2GPG #### [address] [address] Erythrocyte distribution width (RBC) [Ratio] 17.4 % High 11.5-14.5 [facility] Comment on above: Performed By: #### C A19O, LUPUS #### The performing lab is in the report. #### NSEO #### [facility] #### HEMDF, LDH3, BMP3, MG3, PT, CEA2 #### [facility] [address] [place] [address] #### B2GPM, B2GPA, B2GPG #### [address] [address] Granulocytes/100 WBC (Bld) 64.0 % Normal 40.0-80.0 [facility] Comment on above: Performed By: #### C A19O, LUPUS #### The performing lab is in the report. #### NSEO #### [facility] #### HEMDF, LDH3, BMP3, MG3, PT, CEA2 #### [place] [address] [place] #### B2GPM, B2GPA, B2GPG #### [address] Hematocrit (Bld) [Volume fraction] 35.1 % Low 40.0-52.0 [facility] Comment on above: Performed By: #### C A19O, LUPUS #### The performing lab is in the report. #### NSEO #### [facility] #### HEMDF, LDH3, BMP3, MG3, PT, CEA2 #### [address] [place] #### B2GPM, B2GPA, B2GPG #### [address] Hemoglobin (Bld) [Mass/Vol] 11.6 g/dL Low 13.0-18.0 [facility] Comment on above: Performed By: #### C A19O, LUPUS #### The performing lab is in the report. #### NSEO #### [facility] #### HEMDF, LDH3, BMP3, MG3, PT, CEA2 #### [address] [place] #### B2GPM, B2GPA, B2GPG #### [address] Lymphocytes (Bld) [#/Vol] 2.6 10*3/uL Normal 1.0-4.3 [facility] Comment on above: Performed By: #### C A19O, LUPUS #### The performing lab is in the report. #### NSEO #### [facility] #### HEMDF, LDH3, BMP3, MG3, PT, CEA2 #### [address] [place] #### B2GPM, B2GPA, B2GPG #### [address] Lymphocytes/100 WBC (Bld) 25.0 % Normal 20.0-40.0 [facility] Comment on above: Performed By: #### C A19O, LUPUS #### The performing lab is in the report. #### NSEO #### [facility] #### HEMDF, LDH3, BMP3, MG3, PT, CEA2 #### [facility] [address] [place] [address] #### B2GPM, B2GPA, B2GPG #### [address] MCH (RBC) [Entitic mass] 28.4 pg Normal 26.0-34.0 [facility] Comment on above: Performed By: #### C A19O, LUPUS #### The performing lab is in the report. #### NSEO #### [facility] #### HEMDF, LDH3, BMP3, MG3, PT, CEA2 #### [facility] [address] [place], [place] #### B2GPM, B2GPA, B2GPG #### [address] MCHC 33.1 % Normal 32.0-36.0 [facility] Comment on above: Performed By: #### C A19O, LUPUS #### The performing lab is in the report. #### NSEO #### [facility] #### HEMDF, LDH3, BMP3, MG3, PT, CEA2 #### [facility] [address] [place], [place] #### B2GPM, B2GPA, B2GPG #### [address] MCV (RBC) [Entitic vol] 85.9 fL Normal 80.0-98.0 [facility] Comment on above: Performed By: #### C A19O, LUPUS #### The performing lab is in the report. #### NSEO #### [facility] #### HEMDF, LDH3, BMP3, MG3, PT, CEA2 #### [place] [address] [place] #### B2GPM, B2GPA, B2GPG #### [address] Monocytes (Bld) [#/Vol] 0.6 10*3/uL Normal 0.0-0.8 [facility] Comment on above: Performed By: #### C A19O, LUPUS #### The performing lab is in the report. #### NSEO #### [facility] #### HEMDF, LDH3, BMP3, MG3, PT, CEA2 #### [address] [place] #### B2GPM, B2GPA, B2GPG #### [address] Monocytes/100 WBC (Bld) 6.0 % Normal 2.0-10.0 [facility] Comment on above: Performed By: #### C A19O, LUPUS #### The performing lab is in the report. #### NSEO #### [facility] #### HEMDF, LDH3, BMP3, MG3, PT, CEA2 #### [address] [facility] [place] #### B2GPM, B2GPA, B2GPG #### [address] Platelet mean volume (Bld) [Entitic vol] 8.1 fL Normal 7.4-12.4 [facility] Comment on above: Result Comment: MPV is a calculated measurement using platelet volume ratio. Performed By: #### C A19O, LUPUS #### The performing lab is in the report. #### NSEO #### [facility] #### HEMDF, LDH3, BMP3, MG3, PT, CEA2 #### [place] [address] [place] #### B2GPM, B2GPA, B2GPG #### [place] [address] [place], [place] Platelets (Bld) [#/Vol] 450 10*3/uL High 140-440 [facility] Comment on above: Performed By: #### C A19O, LUPUS #### The performing lab is in the report. #### NSEO #### [facility] #### HEMDF, LDH3, BMP3, MG3, PT, CEA2 #### [facility] [address] [place], [place] #### B2GPM, B2GPA, B2GPG #### [address] RBC (Bld) [#/Vol] 4.08 10*6/uL Low 4.40-5.90 [facility] Comment on above: Performed By: #### C A19O, LUPUS #### The performing lab is in the report. #### NSEO #### [facility] #### HEMDF, LDH3, BMP3, MG3, PT, CEA2 #### [facility] [address] [place], [place] #### B2GPM, B2GPA, B2GPG #### [address] WBC (Bld) [#/Vol] 10.3 10*3/uL Normal 3.6-10.7 [facility] Comment on above: Performed By: #### C A19O, LUPUS #### The performing lab is in the report. #### NSEO #### [facility] #### HEMDF, LDH3, BMP3, MG3, PT, CEA2 #### [facility] [address] [place] [address] #### B2GPM, B2GPA, B2GPG #### [address] LDHon 10-23-2021 LDH 136 U/L Normal 120-246 [facility] Comment on above: Performed By: #### C A19O, LUPUS #### The performing lab is in the report. #### NSEO #### [facility] #### HEMDF, LDH3, BMP3, MG3, PT, CEA2 #### [employer] [address] [place] [address] #### B2GPM, B2GPA, B2GPG #### [employer] [address] [place] [address] Lactate Dehydrogenaseon - LD 136 U/L 120 - 246 U/L [facility] Work Phone: MRI ABDOMEN WO CONTRASTon Patient Name: ANDREW SIFUENTES [facility] ACCESSION EXAM DATE/TIME PROCEDURE ORDERING PROVIDER [id number] 10/23/2021 11:08 EDT MRI Abdomen w/o Contrast DONOVAN SRIVASTAVAW CPT code 18124 Reason For Exam (MRI Abdomen w/o Contrast) [...] Imaging ACCESSION EXAM DATE/TIME PROCEDURE ORDERING PROVIDER [id number] 10/23/2021 11:08 EDT MRI Abdomen w/o Contrast WING SRIVASTAVA CPT code 88870 Reason For Exam (MRI Abdomen w/o Contrast) [...] By: Unknown Result on 10-23-2021 [facility]domen w/o Contraston 0 10-23-2021 MRI Abdomen w/o Contrast Patient [facility]: [id number] Imaging ACCESSION EXAM DATE/TIME PROCEDURE ORDERING PROVIDER [id number] 10/23/2021 11:08 EDT MRI Abdomen w/o Contrast WING SRIVASTAVA CPT code 80188 Reason For Exam (MRI Abdomen w/o Contrast) [...] Transcribed Date and Time: 10/23/2021 4:36 Normal [facility] Magnesiumon 10-23-2021 Magnesium [Mass/Vol] 2.1 mg/dL Normal 1.6-2.3 [facility] Comment on above: Performed By: #### C A19O, LUPUS #### The performing lab is in the report. #### NSEO #### [facility] #### HEMDF, LDH3, BMP3, MG3, PT, CEA2 #### [facility] [address] [place] [address] #### B2GPM, B2GPA, B2GPG #### [address] [address] Magnesium [Mass/Vol] 2.1 mg/dL 1.6 - 2 .3 mg/dL [facility] Work Phone: No Panel Informationon 10-23 Test Performed by [facility], [address] [place] [id number] [place] [address] LAB [facility] Work Phone: Prothrombin Timeon 2 INR 1.1 Normal 0.9-1.1 [facility] Comment on above: Result [...] HEMDF, LDH3, BMP3, MG3, PT, CEA2 #### [address] [place] [address] #### B2GPM, B2GPA, B2GPG #### [address] [address] PT Coag (PPP) [Time] 12.2 s High 9.0-12.0 [facility] Comment on above: Result Comment: . Performed By: #### C A19O, LUPUS #### The performing lab is in the report. #### NSEO #### [facility] #### HEMDF, LDH3, BMP3, MG3, PT, CEA2 #### [address] [place] [address] #### B2GPM, B2GPA, B2GPG #### [address] [address] Protime-INRon 10-23-2021 INR Coag (Bld) [Relative time] 1.1 {INR} [facility] Work Phone: Comment on above: Recommended [...] Interpretation and review of laboratory results Abnormal [facility] Work Phone: PT Coag (PPP) [Time] 12.2 s High 9.0 - 12.0 s [facility] Work Phone: Comment on above: . Test Performed by [facility], [address] [place] [address] [facility] LAB [facility] Work Phone: Basic Metabolic Panelon 10-05-2021 Calcium [Mass/Vol] 8.9 mg/dL Normal 8.4-10.4 [facility] Comment on above: Performed By: #### P T #### [facility] [address] [place] [address] Glucose [Mass/Vol] 110 mg/dL High 70-100 [facility] Comment on above: Performed By: #### P T #### [facility] [address] [place] [address] Urea nitrogen [Mass/Vol] 14 mg/dL Normal 7-17 [facility] Comment on above: Performed By: #### P T #### [facility] [address] [place] [address] Anion gap [Moles/Vol] 7 mmol/L Normal 3-13 [facility] Comment on above: Performed By: #### P T #### [facility] [address] [place] [address] CO2 [Moles/Vol] 26 mmol/L Normal 22-30 [facility] Comment on above: Performed By: #### P T #### [facility] [address] [place] [address] Creatinine [Mass/Vol] 0.71 mg/dL Normal 0.52-1.25 [facility] Comment on above: Performed By: #### P T #### [facility] [address] [place] [address] eGFR OTHER > 90.0 Normal >60 [facility] Comment on above: Result [...] secretion. Performed By: #### P T #### [facility] [address] [place] [address] GFR/1.73 sq M.predicted among blacks MDRD (S/P/Bld) [Vol rate/Area] mL/min/{1.73_m2} Normal >60 [facility] Comment on above: Performed By: #### P T #### [facility] [address] [place] [address] Potassium [Moles/Vol] 3.8 mmol/L Normal 3.5-5.1 [facility] Comment on above: Performed By: #### P T #### [facility] [address] [place] [address] Chloride [Moles/Vol] 106 mmol/L Normal 98-107 [facility] Comment on above: Performed By: #### P T #### [facility] [address] [place] [address] Sodium [Moles/Vol] 139 mmol/L Normal 135-145 [facility] Comment on above: Performed By: #### P T #### [place] [address] [place] [address] Anion gap [Moles/Vol] 7 mmol/L 3 - 13 mmol/L [facility] Calcium [Mass/Vol] 8.9 mg/dL 8.4 - 10. 4 mg/dL [facility] Chloride [Moles/Vol] 106 mmol/L 98 - 10 7 mmol/L [facility] CO2 [Moles/Vol] 26 mmol/L 22 - 30 mmol/L [facility] Creatinine [Mass/Vol] 0.71 mg/dL 0.52 - 1.25 mg/dL [facility] EGFR IF NonAfrican Finnish >90.0 >60 mL/min [...] - 10.7 10*3/uL [facility] Test Performed by [facility], [address] [place], [place] [id number] [place] [address] [facility] [address] Abdomen Pelvis Wo Umair johnston 10-22-2021 Patient Name: ANDREW SIFUENTES Computed Tomography ACCESSION EXAM DATE/TIME PROCEDURE ORDERING PROVIDER [id number] 10/22/2021 13:[address] Abdomen/Pelvis (No WING SRIVASTAVA PO, No IV) CPT code 80722 Reason For Exam (CT Abdomen/Pelvis (No PO, [...] HARLAN Transcribed Date and Time: 10/22/2021 2:37 [facility] Humphrey Melton MD - 10/22/2021 Patient Name: ANDREW SIFUENTES Computed Tomography ACCESSION EXAM DATE/TIME PROCEDURE ORDERING PROVIDER [id number] 10/22/2021 13:[address] Abdomen/Pelvis (No SRIVASTAVA, WING PO, No IV) CPT code 50899 Reason For Exam (CT Abdomen/Pelvis (No PO, [...] Tomography ACCESSION EXAM DATE/TIME PROCEDURE ORDERING PROVIDER [id number] 10/22/2021 13:[address] Abdomen/Pelvis (No SRIVASTAVA, WING PO, No IV) CPT code 30843 Reason For Exam (CT Abdomen/Pelvis (No PO, [...] Transcribed Date and Time: 10/22/2021 2:37 Normal [facility] Hemogram w/ Autodiffon 10-22 Abs Baso Cnt 0.1 10*3/uL Normal 0.0-0.2 [facility] Comment on above: Performed By: #### P T #### [facility] [address] [place] [address] Abs Neutrophile Cnt 6.0 10*3/uL Normal 1.8-7.0 [facility] Comment on above: Performed By: #### P T #### [facility] [address] [place] [address] Basophils/100 WBC (Bld) 1.0 % Normal 0.0-2.0 [facility] Comment on above: Performed By: #### P T #### [facility] [address] [place] [address] Eosinophils (Bld) [#/Vol] 0.3 10*3/uL Normal 0.0-0.5 [facility] Comment on above: Performed By: #### P T #### [facility] [address] [place] [address] Eosinophils/100 WBC (Bld) 3.0 % Normal 1.0-6.0 [facility] Comment on above: Performed By: #### P T #### [facility] [address] [place] [address] Erythrocyte distribution width (RBC) [Ratio] 17.1 % High 11.5-14.5 [facility] Comment on above: Performed By: #### P T #### [facility] [address] [place] [address] Granulocytes/100 WBC (Bld) 64.1 % Normal 40.0-80.0 [facility] Comment on above: Performed By: #### P T #### [facility] [address] [place] [address] Hematocrit (Bld) [Volume fraction] 33.4 % Low 40.0-52.0 [facility] Comment on above: Performed By: #### P T #### [facility] [address] [place] [address] Hemoglobin (Bld) [Mass/Vol] 10.9 g/dL Low 13.0-18.0 [facility] Comment on above: Performed By: #### P T #### [facility] [address] [place] [address] Lymphocytes (Bld) [#/Vol] 2.5 10*3/uL Normal 1.0-4.3 [facility] Comment on above: Performed By: #### P T #### [facility] [address] [place] [address] Lymphocytes/100 WBC (Bld) 26.3 % Normal 20.0-40.0 [facility] Comment on above: Performed By: #### P T #### [place] [address] [place] [address] MCH (RBC) [Entitic mass] 28.2 pg Normal 26.0-34.0 [facility] Comment on above: Performed By: #### P T #### [place] [address] [place] [address] MCHC 32.7 % Normal 32.0-36.0 [facility] Comment on above: Performed By: #### P T #### [facility] [address] [place] [address] MCV (RBC) [Entitic vol] 86.3 fL Normal 80.0-98.0 [facility] Comment on above: Performed By: #### P T #### [place] [address] [place] [address] Monocytes (Bld) [#/Vol] 0.5 10*3/uL Normal 0.0-0.8 [facility] Comment on above: Performed By: #### P T #### [facility] [address] [place] [address] Monocytes/100 WBC (Bld) 5.6 % Normal 2.0-10.0 [facility] Comment on above: Performed By: #### P T #### [place] [address] [place] [address] Platelet mean volume (Bld) [Entitic vol] 7.6 fL Normal 7.4-12.4 [facility] Comment on above: Result Comment: MPV is a calculated measurement using platelet volume ratio. Performed By: #### P T #### [place] [address] [place] [address] Platelets (Bld) [#/Vol] 369 10*3/uL Normal 140-440 [facility] Comment on above: Performed By: #### P T #### [facility] [address] [place] [address] RBC (Bld) [#/Vol] 3.87 10*6/uL Low 4.40-5.90 [facility] Comment on above: Performed By: #### P T #### [facility] [address] [place] [address] WBC (Bld) [#/Vol] 9.4 10*3/uL Normal 3.6-10.7 [facility] Comment on above: Performed By: #### P T #### [facility] [address] [place] [address] Magnesiumon 10-22-2021 Magnesium [Mass/Vol] 2.0 mg/dL Normal 1.6-2.3 [facility] Comment on above: Performed By: #### P T #### [facility] [address] [place] [address] Magnesium [Mass/Vol] 2.0 mg/dL 1.6 - 2 .3 mg/dL [facility] No Panel Informationon 10-22 Radiology Study observation (narrative) [facility] Work Phone: Test Performed by [facility], [address] [place], [place] [address] [facility] Prothrombin Timeon 2 INR 1.1 Normal 0.9-1.1 [facility] Comment on above: Result [...] HEMDF, LDH3, BMP3, MG3, PT, CEA2 #### [facility] [address] [place] [address] #### B2GPM, B2GPA, B2GPG #### [facility] [address] [place] [address] PT Coag (PPP) [Time] 11.8 s Normal 9.0-12.0 [facility] Comment on above: Result Comment: . Performed By: #### C A19O, LUPUS #### The performing lab is in the report. #### NSEO #### [facility] #### HEMDF, LDH3, BMP3, MG3, PT, CEA2 #### [facility] [address] [place] [address] #### B2GPM, B2GPA, B2GPG #### [facility] [address] [place] [address] Protime-INRon 10-22-2021 INR Coag (Bld) [Relative time] 1.1 {INR} [facility] Work Phone: Comment on above: Recommended [...] [Time] 11.8 s 9.0 - 12.0 s [facility] Work Phone: Comment on above: . Test Performed by [facility], [address] [place], [place] [address] [facility] Work Phone: VL Ankle Art Brachial Indice s Extremity Bilateralon 10-22-2021 [facility] Ankle Brachial Index Report Patient DO GurpreetB: 1950 Study 10/21/2021 Name: Andrew Gonzalez (71yrs) Date: Age: 71 Account: [id number] Gender: M Loc: 444W BP: Ordering Physician: Shruthi Malik Motor Expert: Rody Cross RDMS, RVT Interpreting Physician: Carina Call Location: [facility] Indications: Foot wounds. Originally ordered as a full PVR. Ordering IT LEAD had to modify the order to ABIs [...] supine position. Images were obtained using a [employer] vascular ultrasound machine. Arterial pressure indices: + [...] electronically signed by Carina Call 10/22/2021 13:21 [facility] Carina Call MD - 10/22/2021 [facility] Ankle Brachial Index Report Patient RADHA Sifuentes: 1950 Study 10/21/2021 Name: Andrew Gonzalez (71yrs) Date: Age: 71 Account: [id number] Gender: M Loc: 444W BP: Ordering Physician: Shruthi Malik Motor Expert: Rody Cross RDMS, RVT Interpreting Physician: Carina Call Location: [facility] Indications: Foot wounds. Originally ordered as a full PVR. Ordering IT LEAD had to modify the order to ABIs [...] supine position. Images were obtained using a [employer] vascular ultrasound machine. Arterial pressure indices: + [...] electronically signed by Carina Call 10/22/2021 13:21 [facility] Work Phone: [facility] Work Phone: Basic Metabolic Panelon 10-05 Calcium [Mass/Vol] 9.1 mg/dL Normal 8.4-10.4 [facility] Comment on above: Performed By: #### C OVAG #### [facility] [address] [place] [address] Anion gap [Moles/Vol] 6 mmol/L Normal 3-13 [facility] Comment on above: Performed By: #### C OVAG #### [facility] [address] [place] [address] CO2 [Moles/Vol] 29 mmol/L Normal 22-30 [facility] Comment on above: Performed By: #### C OVAG #### [facility] [address] [place] [address] Creatinine [Mass/Vol] 0.90 mg/dL Normal 0.52-1.25 [facility] Comment on above: Performed By: #### C OVAG #### [facility] [address] [place] [address] GFR/1.73 sq M.predicted among blacks MDRD (S/P/Bld) [Vol rate/Area] mL/min/{1.73_m2} Normal >60 [facility] Comment on above: Performed By: #### C OVAG #### [facility] [address] [place] [address] GFR/1.73 sq M.predicted among non-blacks MDRD (S/P/Bld) [Vol rate/Area] 86.6 mL/min/{1.73_m2} Normal >60 [facility] Comment on above: Result [...] secretion. Performed By: #### C OVAG #### [facility] [address] [place] [address] Glucose [Mass/Vol] 106 mg/dL High 70-100 [facility] Comment on above: Performed By: #### C OVAG #### [facility] [address] [place] [address] Urea nitrogen [Mass/Vol] 18 mg/dL High 7-17 [facility] Comment on above: Performed By: #### C OVAG #### [facility] [address] [place] [address] Chloride [Moles/Vol] 105 mmol/L Normal 98-107 [facility] Comment on above: Performed By: #### C OVAG #### [facility] [address] [place] [address] Potassium [Moles/Vol] 4.3 mmol/L Normal 3.5-5.1 [facility] Comment on above: Performed By: #### C OVAG #### [facility] [address] [place] [address] Sodium [Moles/Vol] 139 mmol/L Normal 135-145 [facility] Comment on above: Performed By: #### C OVAG #### [facility] [address] [place] [address] Anion gap [Moles/Vol] 6 mmol/L 3 - 13 mmol/L [facility] Calcium [Mass/Vol] 9.1 mg/dL 8.4 - 10. 4 mg/dL [facility] Chloride [Moles/Vol] 105 mmol/L 98 - 10 7 mmol/L [facility] CO2 [Moles/Vol] 29 mmol/L 22 - 30 mmol/L [facility] Creatinine [Mass/Vol] 0.9 mg/dL 0.52 - 1.25 mg/dL [facility] EGFR IF NonAfrican Finnish 86.6 mL/min >60 [facility] Comment on above: KDIGO guidelines pro [...] - 17 mg/dL [facility] Test Performed by [facility], [address] [place], [place], [place] [address] [place] [address] LAB [facility] C-Reactive Proteinon 022 CRP [Mass/Vol] 33.5 mg/L High 0.0-9.9 [facility] Comment on above: Result Comment: . Performed By: #### P T #### [facility] [address] [place] [address] CRP [Mass/Vol] 33.5 mg/L High 0.0 - 9.9 mg/L [facility] Comment on above: . Interpretation and review of laboratory results Abnormal [facility] Test Performed by [facility], [address] [place], [address] LAB [facility] CR Calcaneus 2+ Views Lefton 10-21-2021 CR Calcaneus 2+ Views Left [facility]: [id number] Radiology ACCESSION EXAM DATE/TIME PROCEDURE ORDERING PROVIDER [id number] 10/21/2021 15:30 EDT CR Calcaneus 2+ Views [id number] -SHRUTHI MALIK Left CPT code 13588 Reason For Exam (CR Calcaneus 2+ Views [...] Transcribed Date and Time: 10/21/2021 4:33 Normal [facility] CR Chest 1 View Frontalon CR Chest 1 View Frontal Patient Name: ANDREW SIUFENTES Diagnostic Radiology ACCESSION EXAM DATE/TIME PROCEDURE ORDERING PROVIDER [id number] 10/21/2021 08:16 EDT CR Chest 1 View Frontal [id number] MAY BOGGS CPT code 54302 Reason For Exam (CR Chest 1 View [...] Transcribed Date and Time: 10/21/2021 8:33 Normal [facility] D-Dimer, Innovanceon 022 D-Dimer, Innovance 1.51 mg/L High <0.19-0.50 [facility] Comment on above: Result Comment: Inno saba D-Dimer values of <0.50 mg/L FEU can be used in combination with a pre-test probability model (e.g. Well's) to exclude pulmonary embolism (PE) disease, as well as an aid in the diagnosis of deep vein thrombosis (DVT). Performed By: #### P T #### [facility] [address] [place] [address] D-Dimer, Quantitativeon 10-05 D-Dimer, Quant 1.51 mg/L High <0.19 - 0.50 [facility] Comment on above: [facility] D-Dimer va lues of <0.50 mg/L FEU can be used in combination with a pre-test probability model (e.g. Well's) to exclude pulmonary embolism (PE) disease, as well as an aid in the diagnosis of deep vein thrombosis (DVT). Interpretation and review of laboratory results Abnormal [facility] Test Performed by [facility], [address] [place], [place], [place] [address] [facility] ED Provider Noteon 2 ED Provider Note [facility] ED EMERGENCY DEPARTMENT ENCOUNTER Pt Name: Andrew [...] (HCC) ? Kidney stone ? Neuropathy ? 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 Attends [employer] Services: Not on file ? Active Member [...] LUNGS: Respirations (more content not included)... Normal [facility] Hemogramon 10-21-2021 Erythrocyte distribution width (RBC) [Ratio] 17.3 % High 11.5-14.5 [facility] Comment on above: Performed By: #### C OVAG #### [facility] [address] [place] [address] Hematocrit (Bld) [Volume fraction] 33.6 % Low 40.0-52.0 [facility] Comment on above: Performed By: #### C OVAG #### [facility] [address] [place] [address] Hemoglobin (Bld) [Mass/Vol] 10.9 g/dL Low 13.0-18.0 [facility] Comment on above: Performed By: #### C OVAG #### [facility] [address] [place] [address] MCH (RBC) [Entitic mass] 27.8 pg Normal 26.0-34.0 [facility] Comment on above: Performed By: #### C OVAG #### [facility] [address] [place] [address] MCHC 32.5 % Normal 32.0-36.0 [facility] Comment on above: Performed By: #### C OVAG #### [facility] [address] [place] [address] MCV (RBC) [Entitic vol] 85.6 fL Normal 80.0-98.0 [facility] Comment on above: Performed By: #### C OVAG #### [facility] [address] [place] [address] Platelet mean volume (Bld) [Entitic vol] 7.7 fL Normal 7.4-12.4 [facility] Comment on above: Result Comment: MPV is a calculated measurement using platelet volume ratio. Performed By: #### C OVAG #### [facility] [address] [place] [address] Platelets (Bld) [#/Vol] 404 10*3/uL Normal 140-440 [facility] Comment on above: Performed By: #### C OVAG #### [facility] [address] [place] [address] RBC (Bld) [#/Vol] 3.93 10*6/uL Low 4.40-5.90 [facility] Comment on above: Performed By: #### C OVAG #### [facility] [address] [place] [address] WBC (Bld) [#/Vol] 11.6 10*3/uL High 3.6-10.7 [facility] Comment on above: Performed By: #### C OVAG #### [facility] [address] [place] [address] Hemogram (CBC)on 10-21-2021 Hematocrit (Bld) [Volume fraction] 33.6 % Low 40.0 - 52.0 % [facility] Hemoglobin (Bld) [Mass/Vol] 10.9 g/dL Low 13.0 - 18.0 g/dL [facility] Interpretation and review of laboratory results Abnormal [...] fL 7.4 - 12.4 fL [facility] Comment on above: MPV is a calculated measurement using platelet volume ratio. Platelets (Bld) [#/Vol] 404 10*3/uL 140 - 440 10*3/uL [facility] RBC (Bld) [#/Vol] 3.93 10*6/uL Low 4.40 - 5.9 0 10*6/uL [facility] WBC (Bld) [#/Vol] 11.6 10*3/uL High 3.6 - 10.7 10*3/uL [facility] Test Performed by [facility], [address] [place], [place] [address] [facility] NM LUNG VENT/PERFUSION (VQ)o n 10-21-2021 Patient Name: ANDREW SIFUENTES Nuclear Medicine ACCESSION EXAM DATE/TIME PROCEDURE ORDERING PROVIDER [id number] 10/21/2021 07:55 EDT NM Pulmonary Perfusion [id number] CASH w/ Vent Aerosol CPT code 22560 A9567 Reason For Exam (NM Pulmonary Perfusion [...] JOHN Transcribed Date and Time: 10/21/2021 8:49 [facility] Henry Harvey MD - 10/21/2021 Patient Name: ANDREW SIFUENTES Nuclear Medicine ACCESSION EXAM DATE/TIME PROCEDURE ORDERING PROVIDER [id number] 10/21/2021 07:55 EDT NM Pulmonary Perfusion [id number] CASH w/ Vent Aerosol CPT code 39453 A9567 Reason For Exam (NM Pulmonary Perfusion [...] JOHN Transcribed Date and Time: 10/21/2021 8:49 [facility] Work Phone: NM LUNG VENT/PERFUSION (VQ)O rdered By: Henry Harvey on 10-21-2021 [facility] Work Phone: NM Pulmonary Perfusion w/ Ve nt Aerosol or Gason 10-21-2021 NM Pulmonary Perfusion w/ Vent Aerosol or Gas Patient Name: ANDREW SIFUENTES Nuclear Medicine ACCESSION EXAM DATE/TIME PROCEDURE ORDERING PROVIDER [id number] 10/21/2021 07:55 EDT NM Pulmonary Perfusion [id number] MAY BOGGS w/ Vent Aerosol CPT code 66996 A9567 Reason For Exam (NM Pulmonary Perfusion [...] Date and Time: 10/21/2021 8:49 Normal [facility] No Panel Informationon 10-21 Radiology Study observation (narrative) [facility] Work Phone: Prothrombin Timeon 2 INR 1.1 Normal 0.9-1.1 [facility] Comment on above: Result [...] Infarction Performed By: #### C OVAG #### [facility] [address] [place] [address] PT Coag (PPP) [Time] 11.5 s Normal 9.0-12.0 [facility] Comment on above: Result Comment: . Performed By: #### C OVAG #### [facility] [address] [place] [address] Protime-INRon 10-21-2021 INR Coag (Bld) [Relative time] 1.1 {INR} [facility] Comment on above: Recommended Anticoag ulant [...] [Time] 11.5 s 9.0 - 12.0 s [facility] Comment on above: . Test Performed by [facility], [address] LAB [facility] Retic Count(%)on 10-21-2021 Retic Count(%) 1.6 Normal [facility] Comment on above: Result Comment: [place] < 5% Adults 0.5 - 1.5% Performed By: #### P T #### [facility] [address] [place] [address] Reticulocyteson 10-21-[address] Pct 1.6 [facility] Comment on above: [place] < 5% Adults 0.5 - 1.5% Test Performed by [facility], [address] LAB [facility] Sed Rateon 10-21-2021 Sed Rate 63 mm/h High 0-10 [facility] Comment on above: Performed By: #### P T #### [facility] [address] [place] [address] Sedimentation Rateon 022 Interpretation and review of laboratory results Abnormal [facility] Sed Rate 63 mm/h High 0 - 10 mm/h [facility] Test Performed by [facility], [address] [place], [place], [place] [address] [facility] VL CARMELLA Upr/L Extremity Art 1 -2 Levelson 10-21-2021 VL CARMELLA Upr/L Extremity Art 1-2 Levels Patient Name: ANDREW SIFUENTES Ultrasound ACCESSION EXAM DATE/TIME PROCEDURE ORDERING PROVIDER [id number] 10/21/2021 16:12 EDT VL Upr/L Extremity Art 235319 -SHRUTHI MALIK 1-2 Levels CPT code 83574 Reason For Exam (VL Upr/L Extremity Art 1-2 Levels) both lower legs CARMELLA for both feet wounds. Report [facility] Ankle Brachial Index Report Patient Gurpreet : 1950 Study 10/21/2021 Name: Andrew Gonzalez (71yrs) Date: Age: 71 Account: [id number] Gender: M Loc: 444W BP: Ordering Physician: Shruthi Malik Motor Expert: Rody Cross RDMS, RVT Interpreting Physician: Carina Call Location: [facility] Indications: Foot wounds. Originally ordered as a full PVR. Ordering IT LEAD had to modify the order to ABIs [...] supine position. Images were obtained using a [employer] vascular ultrasound machine. Arterial pressure indices: + [...] CARINA HENNESSY Cardiovascular ACCESSION EXAM DATE/TIME PROCEDURE [id number] 10/21/2021 16:12 EDT VL Upr/L Extremity Art 1-2 Levels CPT code 36027 Reason For Exam (VL Upr/L Extremity Art 1-2 Levels) both lower legs CARMELLA for both feet wounds. Report [facility] Ankle Brachial Index Report Patient DO GurpreetB: 1950 Study 10/21/2021 Name: Andrew Gonzalez (71yrs) Date: Age: 71 Account: [id number] Cardiovascular Report Gender: M Loc: 444W BP: Ordering Physician: Shruthi Malik Motor Expert: Rody Cross RDMS, RVT Interpreting Physician: Carina Call Location: [facility] Indications: Foot wounds. Originally ordered as a full PVR. Ordering IT LEAD had to modify the order to ABIs [...] in th (more content not included)... Normal [facility] VL LOWER EXTREMITY BILATERAL VENOUS DUPLEXon 10-21-2021 [facility] Lower Extremity Venous Duplex Report Patient DO GurpreetB: 1950 Study 10/21/2021 Name: Andrew Gonzalez (71yrs) Date: Age: 71 Account: [id number] Gender: M Loc: 444 BP: Ordering Physician: May Cash Motor Expert: Rody Cross RDMS, RVT Interpreting Physician: Carina Call Location: [facility] Indications: Bilateral lower leg edema. CRITICAL RESULTS: [...] supine position. Images were obtained using a [employer] vascular ultrasound machine. Venous flow and imaging: [...] +-------- --------+ + (more content not included)... [facility] Carina Call MD - 10/21/2021 [facility] Lower Extremity Venous Duplex Report Patient DO GurpreetB: 1950 Study 10/21/2021 Name: Andrew Gonzalez (71yrs) Date: Age: 71 Account: [id number] Gender: M Loc: 444 BP: Ordering Physician: May Cash Motor Expert: Rody Cross RDMS, RVT Interpreting Physician: Carina Call Location: [facility] Indications: Bilateral lower leg edema. CRITICAL RESULTS: [...] supine position. Images were obtained using a [employer] vascular ultrasound machine. Venous flow and imaging: [...] + + +----- (more content not included)... [employer]ini Work Phone: VL LOWER EXTREMITY BILATERAL VENOUS DUPLEXOrdered By: Carina Call on 10-21-2021 [employer] Work Phone: VL Venous Duplex US Lower Ex t Bilateralon 10-21-2021 VL Venous Duplex US Lower Ext Bilateral Patient Name: ANDREW SIFUENTES Ultrasound ACCESSION EXAM DATE/TIME PROCEDURE ORDERING PROVIDER [id number] 10/21/2021 09:53 EDT VL Venous Duplex US [id number] -MAY CASH Lower Ext Bilateral CPT code 75685 Reason For Exam (VL Venous Duplex US Lower Ext Bilateral) bilateral sqwelling redness Report [facility] Lower Extremity Venous Duplex Report Patient DO GurpreetB: 1950 Study 10/21/2021 Name: Andrew Gonzalez (71yrs) Date: Age: 71 Account: [id number] Gender: M Loc: 444 BP: Ordering Physician: May Cash Motor Expert: Rody Cross RDMS, RVT Interpreting Physician: Carina Call Location: [facility] Indications: Bilateral lower leg edema. CRITICAL RESULTS: [...] supine position. Images were obtained using a [employer] vascular ultrasound machine. Venous flow and imaging: [...] + + (more content not included)... [facility] [employer] XR CALCANEUS LEFT (MIN 2 VIE WS)on 10-21-2021 Patient Name: ANDREW SIFUENTES Diagnostic Radiology ACCESSION EXAM DATE/TIME PROCEDURE ORDERING PROVIDER [id number] 10/21/2021 15:30 EDT CR Calcaneus 2+ Views [id number] -SHRUTHI MALIK Left CPT code 36547 Reason For Exam (CR Calcaneus 2+ Views [...] Patient [facility]: [id number] Radiology ACCESSION EXAM DATE/TIME PROCEDURE ORDERING PROVIDER [id number] 10/21/2021 15:30 EDT CR Calcaneus 2+ Views [id number] -SHRUTHI MALIK Left CPT code 01793 Reason For Exam (CR Calcaneus 2+ Views [...] Radiology ACCESSION EXAM DATE/TIME PROCEDURE ORDERING PROVIDER [id number] 10/21/2021 08:16 EDT CR Chest 1 View Frontal [id number] FOSTER CPT code 46983 Reason For Exam (CR Chest 1 View [...] OSAMA Transcribed Date and Time: 10/21/2021 8:33 [facility] Venus Loyd MD - 10/21/2021 Patient Name: ANDREW SIFUENTES Diagnostic Radiology ACCESSION EXAM DATE/TIME PROCEDURE ORDERING PROVIDER [id number] 10/21/2021 08:16 EDT CR Chest 1 View Frontal [id number] CONTI CPT code 74483 Reason For Exam (CR Chest 1 View [...] Date and Time: 10/21/2021 8:33 [facility] Work Phone: XR Chest 1 VWOrdered By: Natalie Loyd on 10-21-2021 [facility] Work Phone: Basophil percentageon 2021 Chloride [Moles/Vol] 108 mmol/L 98-107 [facility] Work Phone: Glucose [Mass/Vol] 93 mg/dL 74-106 [facility] Work Phone: Potassium [Moles/Vol] 3.9 mmol/L 3.5-5.1 [facility] Work Phone: Sodium [Moles/Vol] 140 mmol/L 136-145 [facility] Work Phone: WBC (Bld) [#/Vol] 8.7 10*3/uL 4.4-11.0 [facility] Work Phone: Blood erythrocytes count (nu mber/volume)on 10-20-2021 RBC (Bld) [#/Vol] 3.63 10*6/uL 4.6-6.2 [facility] Work Phone: Blood hemoglobin measurement (mass/volume)on 10-20-2021 Hemoglobin (Bld) [Mass/Vol] 10.1 g/dL 13.0-16.5 [facility] Work Phone: Blood platelet mean volumeon 10-20-2021 Platelet mean volume (Bld) [Entitic vol] 9.8 fL 6.2-12.0 [facility] Work Phone: Determination of erythrocyte mean corpuscular volume (MCV)on 10-20-2021 MCV (RBC) [Entitic vol] 90.1 fL 80-94 [facility] Work Phone: Hematocrit Auto (Bld) [Volum e fraction]on 10-20-2021 Hematocrit (Bld) [Volume fraction] 32.7 % 40-54 [facility] Work Phone: Laboratory - Chemistry and C hemistry - challengeon 10-20-2021 CO2 [Moles/Vol] 25.0 mmol/L 21.0-32.0 [facility] Work Phone: Urea nitrogen/Creatinine [Mass ratio] 17.4 mg/mg 10-20 [facility] Work Phone: Laboratory - Hematology and Cell countson 10-20-2021 Erythrocyte distribution width (RBC) [Entitic vol] 52.1 fL 35.1-43.9 [facility] Work Phone: Erythrocyte distribution width (RBC) [Ratio] 15.6 % 11.6-14.6 [facility] Work Phone: MCH (RBC) [Entitic mass] 27.8 pg 27.0-32.0 [facility] Work Phone: MCHC Auto (RBC) [Mass/Vol]on 10-20-2021 MCHC (RBC) [Mass/Vol] 30.9 g/dL 32-36 [facility] Work Phone: No Panel Informationon 10-20 Estimated GFR (MDRD) Amer 133 mL/min >60 [facility] Work Phone: Comment on above: GFR Calc Estimated GFR (MDRD) Non-Af Amer 110 mL/min >60 [facility] Work Phone: Comment on above: Non- GFR Calc Platelets bldon 10-20-2021 Platelets (Bld) [#/Vol] 404 10*3/uL 150-450 [facility] Work Phone: Serum or plasma calcium oral urement (mass/volume)on 10-20-2021 Calcium [Mass/Vol] 9.1 mg/dL 8.5-10.1 [facility] Work Phone: Serum or plasma creatinine m easurement (mass/volume)on 10-20-2021 Creatinine [Mass/Vol] 0.75 mg/dL 0.70-1.30 [facility] Work Phone: Comment on above: The validity of the calculated GFR & GFRAA in patients over 70 years has not been determined. Clinical correlation is essential. Serum or plasma urea nitroge n measurement (mass/volume)on 10-20-2021 Urea nitrogen [Mass/Vol] 13 mg/dL 7-18 [facility] Work Phone: Thin prep Papanicolaou smear with manual screeningon 10-20-2021 Thin prep Papanicolaou smear with manual screening 7 5-15 [facility] Work Phone: CNPNon 10-17-2021 CNPN Normal [facility] Absolute lymphocyte counton 09-19-2021 Lymphocytes Auto (Unsp spec) [#/Vol] 1.74 10*3/uL 0.83-4.51 [facility] Work Phone: Basophil percentageon 2021 Basophils/100 WBC (Bld) 0.6 % 0-1 [facility] Work Phone: Bilirubin [Mass/Vol] 0.30 mg/dL 0.20-1.00 [facility] Work Phone: Comment on above: For patients on eltr ombopag therapy, use of Dimension [place] TBIL is not recommended. Chloride [Moles/Vol] 105 mmol/L 98-107 [facility] Work Phone: Eosinophils/100 WBC (Bld) 3.5 % 0-5 [facility] Work Phone: Glucose [Mass/Vol] 91 mg/dL 74-106 [facility] Work Phone: Neutrophils (Bld) [#/Vol] 4.2 10*3/uL 2.0-7.7 [facility] Work Phone: Neutrophils/100 WBC (Bld) 62.6 % 47-70 [facility] Work Phone: [phone] Potassium [Moles/Vol] 3.8 mmol/L 3.5-5.1 [facility] Work Phone: [phone] Protein [Mass/Vol] 6.3 g/dL 6.4-8.2 [facility] Work Phone: Sodium [Moles/Vol] 139 mmol/L 136-145 [facility] Work Phone: WBC (Bld) [#/Vol] 6.6 10*3/uL 4.4-11.0 [facility] Work Phone: Blood erythrocytes count (nu mber/volume)on 09-19-2021 RBC (Bld) [#/Vol] 3.47 10*6/uL 4.6-6.2 [facility] Work Phone: [phone] Blood hemoglobin measurement (mass/volume)on 09-19-2021 Hemoglobin (Bld) [Mass/Vol] 10.2 g/dL 13.0-16.5 [facility] Work Phone: Blood lymphocytes/100 leukoc yteson 09-19-2021 Lymphocytes/100 WBC (Bld) 26.2 % 19-41 [facility] Work Phone: Blood monocytes/100 leukocyt eson 09-19-2021 Monocytes/100 WBC (Bld) 6.5 % 0-10 [facility] Work Phone: [phone] Blood platelet mean volumeon 09-19-2021 Platelet mean volume (Bld) [Entitic vol] 9.6 fL 6.2-12.0 [facility] Work Phone: Determination of erythrocyte mean corpuscular volume (MCV)on 09-19-2021 MCV (RBC) [Entitic vol] 94.8 fL 80-94 [facility] Work Phone: [phone] Hematocrit Auto (Bld) [Volum e fraction]on 09-19-2021 Hematocrit (Bld) [Volume fraction] 32.9 % 40-54 [facility] Work Phone: Laboratory - Chemistry and C hemistry - challengeon 09-19-2021 ALP [Catalytic activity/Vol] 109 U/L 45-117 [facility] Work Phone: ALT [Catalytic activity/Vol] 23 U/L 16-61 [facility] Work Phone: CO2 [Moles/Vol] 26.0 mmol/L 21.0-32.0 [facility] Work Phone: Globulin (S) [Mass/Vol] 3.5 g/dL 2.2-4.2 [facility] Work Phone: Urea nitrogen/Creatinine [Mass ratio] 15.3 mg/mg 10-20 [facility] Work Phone: Laboratory - Hematology and Cell countson 09-19-2021 Erythrocyte distribution width (RBC) [Entitic vol] 59.4 fL 35.1-43.9 [facility] Work Phone: Erythrocyte distribution width (RBC) [Ratio] 17.1 % 11.6-14.6 [facility] Work Phone: Immature granulocytes/100 WBC (Bld) 0.600 % 0.0-0.9 [facility] Work Phone: Comment on above: IG% - Immature Granu locytes (promyelocytes, myelocytes and metamyelocytes) > 1% indicates that a LEFT SHIFT is Present. MCH (RBC) [Entitic mass] 29.4 pg 27.0-32.0 [facility] Work Phone: Nucleated RBC/100 WBC (Bld) [Ratio] 0 % 0-5 [facility] Work Phone: MCHC Auto (RBC) [Mass/Vol]on 09-19-2021 MCHC (RBC) [Mass/Vol] 31.0 g/dL 32-36 [facility] Work Phone: No Panel Informationon 09-19 Estimated GFR (MDRD) Amer 175 mL/min >60 [facility] Work Phone: Comment on above: GFR Calc Estimated GFR (MDRD) Non-Af Amer 145 mL/min >60 [facility] Work Phone: Comment on above: Non- GFR Calc Platelets bldon 09-19-2021 Platelets (Bld) [#/Vol] 342 10*3/uL 150-450 [facility] Work Phone: Serum or plasma albumin oral urement (mass/volume)on 09-19-2021 Albumin [Mass/Vol] 2.8 g/dL 3.2-5.0 [facility] Work Phone: Serum or plasma albumin/glob ulin mass ratioon 09-19-2021 Albumin/Globulin [Mass ratio] 0.8 {ratio} 0.9-2.4 [facility] Work Phone: Serum or plasma calcium oral urement (mass/volume)on 09-19-2021 Calcium [Mass/Vol] 9.0 mg/dL 8.5-10.1 [facility] Work Phone: Serum or plasma creatinine m easurement (mass/volume)on 09-19-2021 Creatinine [Mass/Vol] 0.59 mg/dL 0.70-1.30 [facility] Work Phone: Comment on above: The validity of the calculated GFR & GFRAA in patients over 70 years has not been determined. Clinical correlation is essential. Serum or plasma urea nitroge n measurement (mass/volume)on 09-19-2021 Urea nitrogen [Mass/Vol] 9 mg/dL 7-18 [facility] Work Phone: Thin prep Papanicolaou smear with manual screeningon 09-19-2021 Thin prep Papanicolaou smear with manual screening 12 U/L 15-37 [facility] Work Phone: Thin prep Papanicolaou smear with manual screening 8 5-15 [facility] Work Phone: OPERATIVE NOon 08-22-2021 OPERATIVE NO Normal [facility] Basic metabolic 2000 panelon 08-19-2021 Anion gap [Moles/Vol] 10 mmol/L Normal 9-18 [facility] Comment on above: Order Comment: Speci men Type: BLOOD SPECIMENOrdering Facility: [facility] Address: [address] [place] [address] Performed By: #### 2 4321-2 ####[facility] LABORATORYCLIA [id number] [place] [address] [place] Calcium [Mass/Vol] 8.6 mg/dL Normal 8.5-10.2 [facility] Comment on above: Order Comment: Speci men Type: BLOOD SPECIMENOrdering Facility: [facility] Address: [address] [place] [address] Performed By: #### 2 4321-2 ####[facility] LABORATORYCLIA [id number] [place] [address] [place] Chloride [Moles/Vol] 99 mmol/L Normal 97-105 [facility] Comment on above: Order Comment: Speci men Type: BLOOD SPECIMENOrdering Facility: [facility] Address: [address] [place] [address] Performed By: #### 2 4321-2 ####[facility] LABORATORYCLIA [id number] [place] [address] [place] CO2 [Moles/Vol] 29 mmol/L Normal 22-30 [facility] Comment on above: Order Comment: Speci men Type: BLOOD SPECIMENOrdering Facility: [facility] Address: [address] [place] [address] Performed By: #### 2 4321-2 ####[facility] LABORATORYCLIA [id number] [place] [address] [place] Creatinine [Mass/Vol] 0.58 mg/dL Low 0.73-1.22 [facility] Comment on above: Order Comment: Speci men Type: BLOOD SPECIMENOrdering Facility: [facility] Address: [address] [place] [address] Performed By: #### 2 4321-2 ####[facility]ORATORYCLIA [id number] [place] [address] [place] ESTIMATED GLOMERULAR FILTRATION RATE 106 mL/min/1.73m??? Normal >=60 [facility] Comment on above: Order Comment: Shira feldman Type: BLOOD SPECIMENOrdering Facility: [facility] Address: [address] [place] [address] Result Comment: Luzmaria mated Glomerular Filtration Rate [...] actual GFR. Performed By: #### 2 4321-2 ####[facility] COUNTYIA [id number] [place] [address] [place] Glucose [Mass/Vol] 101 mg/dL High 74-99 [facility] Comment on above: Order Comment: Shira feldman Type: BLOOD SPECIMENOrdering Facility: [facility] Address: [address] [place] [address] Result Comment: The [employer] (ADA) [...] 2016.39(Suppl 1). Performed By: #### 2 4321-2 ####[facility] LABORATORYCLIA [id number] [place] [id number] [place] Potassium [Moles/Vol] 3.5 mmol/L Low 3.7-5.1 [facility] Comment on above: Order Comment: Speci men Type: BLOOD SPECIMENOrdering Facility: [facility] Address: [address] [place] [address] Performed By: #### 2 4321-2 ####[facility] LABORATORYCLIA [id number] [address] STATES OF [facility] Sodium [Moles/Vol] 138 mmol/L Normal 136-144 [facility] Comment on above: Order Comment: Speci men Type: BLOOD SPECIMENOrdering Facility: [facility] Address: [address] [place] [address] Performed By: #### 2 4321-2 ####[facility] LABORATORYCLIA [id number] [address] STATES OF [facility] Urea nitrogen [Mass/Vol] 11 mg/dL Normal 9-24 [facility] Comment on above: Order Comment: Speci men Type: BLOOD SPECIMENOrdering Facility: [facility] Address: [address] [place] [address] Performed By: #### 2 4321-2 ####[facility] LABORATORYCLIA [id number] [address] STATES OF [facility] CASE MANAGEMon 08-19-2021 CASE MANAGEM Normal [facility] CBC W Auto Differential pane l (Bld)on 08-19-2021 Basophils (Bld) [#/Vol] 0.03 10*3/uL Normal <0.11 [facility] Comment on above: Order Comment: Speci men Type: BLOOD SPECIMENOrdering Facility: [facility] Address: [address] [place] [address] Performed By: #### 5 7021-8 ####[facility] LABORATORYCLIA [id number] [address] STATES [facility] Basophils/100 WBC (Bld) 0.4 % Normal [facility] Comment on above: Order Comment: Speci men Type: BLOOD SPECIMENOrdering Facility: [facility] Address: [address] [place] [address] Performed By: #### 5 7021-8 ####[facility] LABORATORYCLIA [id number] [address] Differential cell count method Nom (Bld) Auto Normal [facility] Comment on above: Order Comment: Speci men Type: BLOOD SPECIMENOrdering Facility: [facility] Address: [address] [place] [address] Performed By: #### 5 7021-8 ####[facility] LABORATORYCLIA [id number] [address] Eosinophils (Bld) [#/Vol] 0.24 10*3/uL Normal <0.46 [facility] Comment on above: Order Comment: Speci men Type: BLOOD SPECIMENOrdering Facility: [facility] Address: [address] [place] [address] Performed By: #### 5 7021-8 ####[facility] LABORATORYCLIA [id number] [address] Eosinophils/100 WBC (Bld) 3.1 % Normal [facility] Comment on above: Order Comment: Speci men Type: BLOOD SPECIMENOrdering Facility: [facility] Address: [address] [place] [address] Performed By: #### 5 7021-8 ####[facility] LABORATORYCLIA [id number] [address] Erythrocyte distribution width (RBC) [Ratio] 17.5 % High 11.5-15.0 [facility] Comment on above: Order Comment: Speci men Type: BLOOD SPECIMENOrdering Facility: [facility] Address: [address] [place] [address] Performed By: #### 5 7021-8 ####[facility] LABORATORYCLIA [id number] [address] Hematocrit (Bld) [Volume fraction] 30.2 % Low 39.0-51.0 [facility] Comment on above: Order Comment: Speci men Type: BLOOD SPECIMENOrdering Facility: [facility] Address: [address] [place] [address] Performed By: #### 5 7021-8 ####[facility] LABORATORYCLIA [id number] [address] Hemoglobin (Bld) [Mass/Vol] 9.6 g/dL Low 13.0-17.0 [facility] Comment on above: Order Comment: Speci men Type: BLOOD SPECIMENOrdering Facility: [facility] Address: [address] [place] [address] Performed By: #### 5 7021-8 ####[facility] LABORATORYCLIA [id number] [address] IMMATURE GRAN % 0.4 % Normal [facility] Comment on above: Order Comment: Speci men Type: BLOOD SPECIMENOrdering Facility: [facility] Address: [address] [place] [address] Performed By: #### 5 7021-8 ####[facility] LABORATORYCLIA [id number] [address] IMMATURE GRAN ABS 0.03 k/uL Normal <0.10 [facility] Comment on above: Order Comment: Speci men Type: BLOOD SPECIMENOrdering Facility: [facility] Address: [address] [place] [address] Performed By: #### 5 7021-8 ####[facility] LABORATORYCLIA [id number] [address] [place] Lymphocytes (Bld) [#/Vol] 1.71 10*3/uL Normal 1.00-4.00 [facility] Comment on above: Order Comment: Speci men Type: BLOOD SPECIMENOrdering Facility: [facility] Address: [address] [place] [address] Performed By: #### 5 7021-8 ####[facility] LABORATORYCLIA [id number] [address] Lymphocytes/100 WBC (Bld) 22.2 % Normal [facility] Comment on above: Order Comment: Speci men Type: BLOOD SPECIMENOrdering Facility: [facility] Address: [address] [place] [address] Performed By: #### 5 7021-8 ####[facility] LABORATORYCLIA [id number] [address] MCH (RBC) [Entitic mass] 29.4 pg Normal 26.0-34.0 [facility] Comment on above: Order Comment: Speci men Type: BLOOD SPECIMENOrdering Facility: [facility] Address: [address] [place] [address] Performed By: #### 5 7021-8 ####[facility] LABORATORYCLIA [id number] [address] STATES [facility] MCHC (RBC) [Mass/Vol] 31.8 g/dL Normal 30.5-36.0 [facility] Comment on above: Order Comment: Speci men Type: BLOOD SPECIMENOrdering Facility: [facility] Address: [address] [place] [address] Performed By: #### 5 7021-8 ####[facility] LABORATORYCLIA [id number] [address] MCV (RBC) [Entitic vol] 92.6 fL Normal 80.0-100.0 [facility] Comment on above: Order Comment: Speci men Type: BLOOD SPECIMENOrdering Facility: [facility] Address: [address] [place] [address] Performed By: #### 5 7021-8 ####[facility] LABORATORYCLIA [id number] [address] Monocytes (Bld) [#/Vol] 0.50 10*3/uL Normal <0.87 [facility] Comment on above: Order Comment: Speci men Type: BLOOD SPECIMENOrdering Facility: [facility] Address: [address] [place] [address] Performed By: #### 5 7021-8 ####[facility] LABORATORYCLIA [id number] [place] [address] [place] Monocytes/100 WBC (Bld) 6.5 % Normal [facility] Comment on above: Order Comment: Speci men Type: BLOOD SPECIMENOrdering Facility: [facility] Address: [address] [place] [address] Performed By: #### 5 7021-8 ####[facility]ORATORYCLIA [id number] [place] [address] [place] Neutrophils (Bld) [#/Vol] 5.20 10*3/uL Normal 1.45-7.50 [facility] Comment on above: Order Comment: Speci men Type: BLOOD SPECIMENOrdering Facility: [facility] Address: [address] [place] [address] Performed By: #### 5 7021-8 ####[facility] LABORATORYCLIA [id number] [address] [place] Neutrophils/100 WBC (Bld) 67.4 % Normal [facility] Comment on above: Order Comment: Speci men Type: BLOOD SPECIMENOrdering Facility: [facility] Address: [address] [place] [address] Performed By: #### 5 7021-8 ####[facility]ORATORYCLIA [id number] [place] [address] [place] Nucleated RBC (Bld) [#/Vol] 10*3/uL Normal <0.01 [facility] Comment on above: Order Comment: Speci men Type: BLOOD SPECIMENOrdering Facility: [facility] Address: [address] [place] [address] Performed By: #### 5 7021-8 ####[facility] LABORATORYCLIA [id number] [place] [address] [place] Nucleated RBC/100 WBC (Bld) [Ratio] 0.0 /100 WBC Normal [facility] Comment on above: Order Comment: Speci men Type: BLOOD SPECIMENOrdering Facility: [facility] Address: [address] [place] [address] Performed By: #### 5 7021-8 ####[facility] LABORATORYCLIA [id number] [address] Platelet mean volume (Bld) [Entitic vol] 8.9 fL Low 9.0-12.7 [facility] Comment on above: Order Comment: Speci men Type: BLOOD SPECIMENOrdering Facility: [facility] Address: [address] [place] [address] Performed By: #### 5 7021-8 ####[facility] LABORATORYCLIA [id number] [address] [place] Platelets (Bld) [#/Vol] 408 10*3/uL High 150-400 [facility] Comment on above: Order Comment: Speci men Type: BLOOD SPECIMENOrdering Facility: [facility] Address: [address] [place] [address] Performed By: #### 5 7021-8 ####[facility] LABORATORYCLIA [id number] [address] [place] RBC (Bld) [#/Vol] 3.26 10*6/uL Low 4.20-6.00 [facility] Comment on above: Order Comment: Speci men Type: BLOOD SPECIMENOrdering Facility: [facility] Address: [address] [place] [address] Performed By: #### 5 7021-8 ####[facility] LABORATORYCLIA [id number] [address] [place] WBC (Bld) [#/Vol] 7.71 10*3/uL Normal 3.70-11.00 [facility] Comment on above: Order Comment: Speci men Type: BLOOD SPECIMENOrdering Facility: [facility] Address: [address] [place] [address] Performed By: #### 5 7021-8 ####[facility] LABORATORYCLIA [id number] [address] [place] CNDSon 08-19-2021 CNDS Normal [facility] CONSULT PROGon 08-19-2021 CONSULT PROG Normal [facility] THERAPY NTon 08-19-2021 THERAPY NT Normal [facility] Basic metabolic 2000 panelon 08-18-2021 Anion gap [Moles/Vol] 11 mmol/L Normal 9-18 [facility] Comment on above: Order Comment: Speci men Type: BLOOD SPECIMENOrdering Facility: [facility] Address: [address] [place] [address] Performed By: #### 2 4321-2 ####[facility] LABORATORYCLIA [id number] [place] [address] [place] Calcium [Mass/Vol] 8.6 mg/dL Normal 8.5-10.2 [facility] Comment on above: Order Comment: Speci men Type: BLOOD SPECIMENOrdering Facility: [facility] Address: [address] [place] [address] Performed By: #### 2 4321-2 ####[facility] LABORATORYCLIA [id number] [place] [address] [place] Chloride [Moles/Vol] 98 mmol/L Normal 97-105 [facility] Comment on above: Order Comment: Speci men Type: BLOOD SPECIMENOrdering Facility: [facility] Address: [address] [place] [address] Performed By: #### 2 4321-2 ####[facility] LABORATORYCLIA [id number] [place] [address] [place] CO2 [Moles/Vol] 28 mmol/L Normal 22-30 [facility] Comment on above: Order Comment: Speci men Type: BLOOD SPECIMENOrdering Facility: [facility] Address: [address] [place] [address] Performed By: #### 2 4321-2 ####[facility] LABORATORYCLIA [id number] [place] [address] [place] Creatinine [Mass/Vol] 0.56 mg/dL Low 0.73-1.22 [facility] Comment on above: Order Comment: Speci men Type: BLOOD SPECIMENOrdering Facility: [facility] Address: [address] [place] [address] Performed By: #### 2 4321-2 ####[facility] COUNTYIA [id number] [address] ESTIMATED GLOMERULAR FILTRATION RATE 107 mL/min/1.73m??? Normal >=60 [facility] Comment on above: Order Comment: Shira francia Type: BLOOD SPECIMENOrdering Facility: [facility] Address: [address] [place] [address] Result Comment: Luzmaria mated Glomerular Filtration Rate [...] actual GFR. Performed By: #### 2 4321-2 ####[facility] COUNTYIA [id number] [place] [address] [place] Glucose [Mass/Vol] 113 mg/dL High 74-99 [facility] Comment on above: Order Comment: Johncara feldman Type: BLOOD SPECIMENOrdering Facility: [facility] Address: [address] [place] [address] Result Comment: The [employer] (ADA) [...] 2016.39(Suppl 1). Performed By: #### 2 4321-2 ####[facility] LABORATORYCLIA [id number] [place] [address] [place] Potassium [Moles/Vol] 3.5 mmol/L Low 3.7-5.1 [facility] Comment on above: Order Comment: Speci men Type: BLOOD SPECIMENOrdering Facility: [facility] Address: [address] [place] [address] Performed By: #### 2 4321-2 ####[facility] LABORATORYCLIA [id number] [address] [place] Sodium [Moles/Vol] 137 mmol/L Normal 136-144 [facility] Comment on above: Order Comment: Speci men Type: BLOOD SPECIMENOrdering Facility: [facility] Address: [address] [place] [address] Performed By: #### 2 4321-2 ####[facility] LABORATORYCLIA [id number] [address] STATES [facility] Urea nitrogen [Mass/Vol] 10 mg/dL Normal 9-24 [facility] Comment on above: Order Comment: Speci men Type: BLOOD SPECIMENOrdering Facility: [facility] Address: [address] [place] [address] Performed By: #### 2 4321-2 ####[facility] LABORATORYCLIA [id number] [address] [place] CBC W Auto Differential pane l (Bld)on 08-18-2021 Basophils (Bld) [#/Vol] 10*3/uL Normal <0.11 [facility] Comment on above: Order Comment: Speci men Type: BLOOD SPECIMENOrdering Facility: [facility] Address: [address] [place] [address] Performed By: #### 5 7021-8 ####[facility] LABORATORYCLIA [id number] [address] [place] Basophils/100 WBC (Bld) 0.3 % Normal [facility] Comment on above: Order Comment: Speci men Type: BLOOD SPECIMENOrdering Facility: [facility] Address: [address] [address] Performed By: #### 5 7021-8 ####[facility] LABORATORYCLIA [id number] [address] Differential cell count method Nom (Bld) Auto Normal [facility] Comment on above: Order Comment: Speci men Type: BLOOD SPECIMENOrdering Facility: [facility] Address: [address] [place] [address] Performed By: #### 5 7021-8 ####[facility] LABORATORYCLIA [id number] [address] [place] Eosinophils (Bld) [#/Vol] 0.37 10*3/uL Normal <0.46 [facility] Comment on above: Order Comment: Speci men Type: BLOOD SPECIMENOrdering Facility: [facility] Address: [address] [place] [address] Performed By: #### 5 7021-8 ####[facility] LABORATORYCLIA [id number] [address] Eosinophils/100 WBC (Bld) 4.8 % Normal [facility] Comment on above: Order Comment: Speci men Type: BLOOD SPECIMENOrdering Facility: [facility] Address: [address] [place] [address] Performed By: #### 5 7021-8 ####[facility] LABORATORYCLIA [id number] [address] Erythrocyte distribution width (RBC) [Ratio] 17.5 % High 11.5-15.0 [facility] Comment on above: Order Comment: Speci men Type: BLOOD SPECIMENOrdering Facility: [facility] Address: [address] [place] [address] Performed By: #### 5 7021-8 ####[facility] LABORATORYCLIA [id number] [address] [place] Hematocrit (Bld) [Volume fraction] 30.2 % Low 39.0-51.0 [facility] Comment on above: Order Comment: Speci men Type: BLOOD SPECIMENOrdering Facility: [facility] Address: [address] [place] [address] Performed By: #### 5 7021-8 ####[facility] LABORATORYCLIA [id number] [address] OF [facility] Hemoglobin (Bld) [Mass/Vol] 9.5 g/dL Low 13.0-17.0 [facility] Comment on above: Order Comment: Speci men Type: BLOOD SPECIMENOrdering Facility: [facility] Address: [address] [place] [address] Performed By: #### 5 7021-8 ####[facility] LABORATORYCLIA [id number] [address] IMMATURE GRAN % 0.4 % Normal [facility] Comment on above: Order Comment: Speci men Type: BLOOD SPECIMENOrdering Facility: [facility] Address: [address] [place] [address] Performed By: #### 5 7021-8 ####[facility] LABORATORYCLIA [id number] [address] IMMATURE GRAN ABS 0.03 k/uL Normal <0.10 [facility] Comment on above: Order Comment: Speci men Type: BLOOD SPECIMENOrdering Facility: [facility] Address: [address] [place] [address] Performed By: #### 5 7021-8 ####[facility] LABORATORYCLIA [id number] [address] [place] Lymphocytes (Bld) [#/Vol] 1.85 10*3/uL Normal 1.00-4.00 [facility] Comment on above: Order Comment: Speci men Type: BLOOD SPECIMENOrdering Facility: [facility] Address: [address] [place] [address] Performed By: #### 5 7021-8 ####[facility] LABORATORYCLIA [id number] [address] Lymphocytes/100 WBC (Bld) 23.8 % Normal [facility] Comment on above: Order Comment: Speci men Type: BLOOD SPECIMENOrdering Facility: [facility] Address: [address] [place] [address] Performed By: #### 5 7021-8 ####[facility] LABORATORYCLIA [id number] [address] MCH (RBC) [Entitic mass] 29.5 pg Normal 26.0-34.0 [facility] Comment on above: Order Comment: Speci men Type: BLOOD SPECIMENOrdering Facility: [facility] Address: [address] [place] [address] Performed By: #### 5 7021-8 ####[facility] LABORATORYCLIA [id number] [address] MCHC (RBC) [Mass/Vol] 31.5 g/dL Normal 30.5-36.0 [facility] Comment on above: Order Comment: Speci men Type: BLOOD SPECIMENOrdering Facility: [facility] Address: [address] [place] [address] Performed By: #### 5 7021-8 ####[facility] LABORATORYCLIA [id number] [address] MCV (RBC) [Entitic vol] 93.8 fL Normal 80.0-100.0 [facility] Comment on above: Order Comment: Speci men Type: BLOOD SPECIMENOrdering Facility: [facility] Address: [address] [place] [address] Performed By: #### 5 7021-8 ####[facility] LABORATORYCLIA [id number] [address] Monocytes (Bld) [#/Vol] 0.49 10*3/uL Normal <0.87 [facility] Comment on above: Order Comment: Speci men Type: BLOOD SPECIMENOrdering Facility: [facility] Address: [address] [place] [address] Performed By: #### 5 7021-8 ####[facility]ORATORYCLIA [id number] [address] [place] Monocytes/100 WBC (Bld) 6.3 % Normal [facility] Comment on above: Order Comment: Speci men Type: BLOOD SPECIMENOrdering Facility: [facility] Address: [address] [place] [address] Performed By: #### 5 7021-8 ####[facility]ORATORYCLIA [id number] [place] [address] [place] Neutrophils (Bld) [#/Vol] 5.00 10*3/uL Normal 1.45-7.50 [facility] Comment on above: Order Comment: Speci men Type: BLOOD SPECIMENOrdering Facility: [facility] Address: [address] [place] [address] Performed By: #### 5 7021-8 ####[facility] LABORATORYCLIA [id number] [address] Neutrophils/100 WBC (Bld) 64.4 % Normal [facility] Comment on above: Order Comment: Speci men Type: BLOOD SPECIMENOrdering Facility: [facility] Address: [address] [place] [address] Performed By: #### 5 7021-8 ####[facility] LABORATORYCLIA [id number] [address] [place] Nucleated RBC (Bld) [#/Vol] 10*3/uL Normal <0.01 [facility] Comment on above: Order Comment: Speci men Type: BLOOD SPECIMENOrdering Facility: [facility] Address: [address] [place] [address] Performed By: #### 5 7021-8 ####[facility]ORATORYCLIA [id number] [address] [place] Nucleated RBC/100 WBC (Bld) [Ratio] 0.0 /100 WBC Normal [facility] Comment on above: Order Comment: Speci men Type: BLOOD SPECIMENOrdering Facility: [facility] Address: [address] [place], [place] [address] Performed By: #### 5 7021-8 ####[facility] LABORATORYCLIA [id number] [address] Platelet mean volume (Bld) [Entitic vol] 9.1 fL Normal 9.0-12.7 [facility] Comment on above: Order Comment: Speci men Type: BLOOD SPECIMENOrdering Facility: [facility] Address: [address] [place], [place] [address] Performed By: #### 5 7021-8 ####[facility] LABORATORYCLIA [id number] [address] [place] Platelets (Bld) [#/Vol] 391 10*3/uL Normal 150-400 [facility] Comment on above: Order Comment: Speci men Type: BLOOD SPECIMENOrdering Facility: [facility] Address: [address] [place] [address] Performed By: #### 5 7021-8 ####[facility] LABORATORYCLIA [id number] [place] [address] [place] RBC (Bld) [#/Vol] 3.22 10*6/uL Low 4.20-6.00 [facility] Comment on above: Order Comment: Speci men Type: BLOOD SPECIMENOrdering Facility: [facility] Address: [address] [place], [place] [address] Performed By: #### 5 7021-8 ####[facility] LABORATORYCLIA [id number] [address] [place] WBC (Bld) [#/Vol] 7.76 10*3/uL Normal 3.70-11.00 [facility] Comment on above: Order Comment: Speci men Type: BLOOD SPECIMENOrdering Facility: [facility] Address: [address] [place] [address] Performed By: #### 5 7021-8 ####[facility] LABORATORYCLIA [id number] [address] [place] CONSULT PROGon 08-18-2021 CONSULT PROG Normal [facility] CASE MANAGEMon 08-17-2021 CASE MANAGEM Normal [facility] CBC W Auto Differential pane l (Bld)on 08-17-2021 Basophils (Bld) [#/Vol] 0.04 10*3/uL Normal <0.11 [facility] Comment on above: Order Comment: Speci men Type: BLOOD SPECIMENOrdering Facility: [facility] Address: [address] [place] [address] Performed By: #### 5 7021-8 ####[facility] LABORATORYCLIA [id number] [address] [place] Basophils/100 WBC (Bld) 0.5 % Normal [facility] Comment on above: Order Comment: Speci men Type: BLOOD SPECIMENOrdering Facility: [facility] Address: [address] [place] [address] Performed By: #### 5 7021-8 ####[facility] LABORATORYCLIA [id number] [address] [place] Differential cell count method Nom (Bld) Auto Normal [facility] Comment on above: Order Comment: Speci men Type: BLOOD SPECIMENOrdering Facility: [facility] Address: [address] [place] [address] Performed By: #### 5 7021-8 ####[facility] LABORATORYCLIA [id number] [place] [address] [place] Eosinophils (Bld) [#/Vol] 0.31 10*3/uL Normal <0.46 [facility] Comment on above: Order Comment: Speci men Type: BLOOD SPECIMENOrdering Facility: [facility] Address: [address] [place] [address] Performed By: #### 5 7021-8 ####[facility] LABORATORYCLIA [id number] [address] [place] Eosinophils/100 WBC (Bld) 3.7 % Normal [facility] Comment on above: Order Comment: Speci men Type: BLOOD SPECIMENOrdering Facility: [facility] Address: [address] [place] [address] Performed By: #### 5 7021-8 ####[facility] LABORATORYCLIA [id number] [address] Erythrocyte distribution width (RBC) [Ratio] 17.4 % High 11.5-15.0 [facility] Comment on above: Order Comment: Speci men Type: BLOOD SPECIMENOrdering Facility: [facility] Address: [address] [place] [address] Performed By: #### 5 7021-8 ####[facility] LABORATORYCLIA [id number] [address] Hematocrit (Bld) [Volume fraction] 30.6 % Low 39.0-51.0 [facility] Comment on above: Order Comment: Speci men Type: BLOOD SPECIMENOrdering Facility: [facility] Address: [address] [place] [address] Performed By: #### 5 7021-8 ####[facility] LABORATORYCLIA [id number] [address] [place] Hemoglobin (Bld) [Mass/Vol] 9.6 g/dL Low 13.0-17.0 [facility] Comment on above: Order Comment: Speci men Type: BLOOD SPECIMENOrdering Facility: [facility] Address: [address] [place] [address] Performed By: #### 5 7021-8 ####[facility] LABORATORYCLIA [id number] [address] [place] IMMATURE GRAN % 0.2 % Normal [facility] Comment on above: Order Comment: Speci men Type: BLOOD SPECIMENOrdering Facility: [facility] Address: [address] [place] [address] Performed By: #### 5 7021-8 ####[facility] LABORATORYCLIA [id number] [address] IMMATURE GRAN ABS <0.03 Normal <0.10 [facility] Comment on above: Order Comment: Speci men Type: BLOOD SPECIMENOrdering Facility: [facility] Address: [address] [place] [address] Performed By: #### 5 7021-8 ####[facility] LABORATORYCLIA [id number] [address] [place] Lymphocytes (Bld) [#/Vol] 1.66 10*3/uL Normal 1.00-4.00 [facility] Comment on above: Order Comment: Speci men Type: BLOOD SPECIMENOrdering Facility: [facility] Address: [address] [place] [address] Performed By: #### 5 7021-8 ####[facility] LABORATORYCLIA [id number] [address] Lymphocytes/100 WBC (Bld) 19.9 % Normal [facility] Comment on above: Order Comment: Speci men Type: BLOOD SPECIMENOrdering Facility: [facility] Address: [address] [place] [address] Performed By: #### 5 7021-8 ####[facility] LABORATORYCLIA [id number] [address] MCH (RBC) [Entitic mass] 28.9 pg Normal 26.0-34.0 [facility] Comment on above: Order Comment: Speci men Type: BLOOD SPECIMENOrdering Facility: [facility] Address: [address] [place] [address] Performed By: #### 5 7021-8 ####[facility] LABORATORYCLIA [id number] [address] MCHC (RBC) [Mass/Vol] 31.4 g/dL Normal 30.5-36.0 [facility] Comment on above: Order Comment: Speci men Type: BLOOD SPECIMENOrdering Facility: [facility] Address: [address] [place] [address] Performed By: #### 5 7021-8 ####[facility] LABORATORYCLIA [id number] [place] [address] [place] MCV (RBC) [Entitic vol] 92.2 fL Normal 80.0-100.0 [facility] Comment on above: Order Comment: Speci men Type: BLOOD SPECIMENOrdering Facility: [facility] Address: [address] [place] [address] Performed By: #### 5 7021-8 ####[facility] LABORATORYCLIA [id number] [address] [place] Monocytes (Bld) [#/Vol] 0.52 10*3/uL Normal <0.87 [facility] Comment on above: Order Comment: Speci men Type: BLOOD SPECIMENOrdering Facility: [facility] Address: [address] [place] [address] Performed By: #### 5 7021-8 ####[facility] LABORATORYCLIA [id number] [address] STATES [facility] Monocytes/100 WBC (Bld) 6.2 % Normal [facility] Comment on above: Order Comment: Speci men Type: BLOOD SPECIMENOrdering Facility: [facility] Address: [address] [place] [address] Performed By: #### 5 7021-8 ####[facility] LABORATORYCLIA [id number] [address] [place] Neutrophils (Bld) [#/Vol] 5.78 10*3/uL Normal 1.45-7.50 [facility] Comment on above: Order Comment: Speci men Type: BLOOD SPECIMENOrdering Facility: [facility] Address: [address] [place] [address] Performed By: #### 5 7021-8 ####[facility] LABORATORYCLIA [id number] [address] [place] Neutrophils/100 WBC (Bld) 69.5 % Normal [facility] Comment on above: Order Comment: Speci men Type: BLOOD SPECIMENOrdering Facility: [facility] Address: [address] Performed By: #### 5 7021-8 ####[facility] LABORATORYCLIA [id number] [address] Nucleated RBC (Bld) [#/Vol] 10*3/uL Normal <0.01 [facility] Comment on above: Order Comment: Speci men Type: BLOOD SPECIMENOrdering Facility: [facility] Address: [address] [place], [place] [address] Performed By: #### 5 7021-8 ####[facility] LABORATORYCLIA [id number] [address] Nucleated RBC/100 WBC (Bld) [Ratio] 0.0 /100 WBC Normal [facility] Comment on above: Order Comment: Speci men Type: BLOOD SPECIMENOrdering Facility: [facility] Address: [address] [place], [place] [address] Performed By: #### 5 7021-8 ####[facility] LABORATORYCLIA [id number] [address] STATES [facility] Platelet mean volume (Bld) [Entitic vol] 9.2 fL Normal 9.0-12.7 [facility] Comment on above: Order Comment: Speci men Type: BLOOD SPECIMENOrdering Facility: [facility] Address: [address] [place], [place] [address] Performed By: #### 5 7021-8 ####[facility] LABORATORYCLIA [id number] [address] STATES [facility] Platelets (Bld) [#/Vol] 379 10*3/uL Normal 150-400 [facility] Comment on above: Order Comment: Speci men Type: BLOOD SPECIMENOrdering Facility: [facility] Address: [address] [place], [place] [address] Performed By: #### 5 7021-8 ####[facility] LABORATORYCLIA [id number] [place] [address] [place] RBC (Bld) [#/Vol] 3.32 10*6/uL Low 4.20-6.00 [facility] Comment on above: Order Comment: Speci men Type: BLOOD SPECIMENOrdering Facility: [facility] Address: [address] [place] [address] Performed By: #### 5 7021-8 ####[facility] LABORATORYCLIA [id number] [place] [address] [place] WBC (Bld) [#/Vol] 8.33 10*3/uL Normal 3.70-11.00 [facility] Comment on above: Order Comment: Speci men Type: BLOOD SPECIMENOrdering Facility: [facility] Address: [address] [place] [address] Performed By: #### 5 7021-8 ####[facility] LABORATORYCLIA [id number] [address] OF [facility] CONSULT PROGon 08-17-2021 CONSULT PROG Normal [facility] NUTRITIONon 08-17-2021 NUTRITION Normal [facility] Basic metabolic 2000 panelon 08-16-2021 Anion gap [Moles/Vol] 14 mmol/L Normal 9-18 [facility] Comment on above: Order Comment: Speci men Type: BLOOD SPECIMENOrdering Facility: [facility] Address: [address] [place] [address] Performed By: #### 2 4321-2, 29361-8 ####[facility] LABORATORYCLIA [id number] [address] [place] Calcium [Mass/Vol] 8.8 mg/dL Normal 8.5-10.2 [facility] Comment on above: Order Comment: Speci men Type: BLOOD SPECIMENOrdering Facility: [facility] Address: [address] [place] [address] Performed By: #### 2 4321-2, 20946-7 ####[facility] LABORATORYCLIA [id number] [address] [place] Chloride [Moles/Vol] 97 mmol/L Normal 97-105 [facility] Comment on above: Order Comment: Speci men Type: BLOOD SPECIMENOrdering Facility: [facility] Address: [address] [address] Performed By: #### 2 4322, ####[facility] LABORATORYCLIA [id number] [place] [address] [place] CO2 [Moles/Vol] 27 mmol/L Normal 22-30 [facility] Comment on above: Order Comment: Speci men Type: BLOOD SPECIMENOrdering Facility: [facility] Address: [address] [place] [address] Performed By: #### 2 4322, ####[facility] SERVICESCLIA [id number] [address] STATES OF [facility] Creatinine [Mass/Vol] 0.50 mg/dL Low 0.73-1.22 [facility] Comment on above: Order Comment: Speci men Type: BLOOD SPECIMENOrdering Facility: [facility] Address: [address] [place] [address] Performed By: #### 2 4320-06, ####[facility] LABORATORYCLIA [id number] [address] ESTIMATED GLOMERULAR FILTRATION RATE 110 mL/min/1.73m??? Normal >=60 [facility] Comment on above: Order Comment: Speci men Type: BLOOD SPECIMENOrdering Facility: [facility] Address: [address] [place] [address] Result Comment: Luzmaria mated Glomerular Filtration Rate [...] actual GFR. Performed By: #### 2 2, ####[facility] LABORATORYCLIA [id number] [place] [address] [place] Glucose [Mass/Vol] 101 mg/dL High 74-99 [facility] Comment on above: Order Comment: Shira feldman Type: BLOOD SPECIMENOrdering Facility: [facility] Address: [address] [place] [address] Result Comment: The [employer] (ADA) [...] Care. 2016.39(Suppl 1). Performed By: #### 2 ####[facility] LABORATORYCLIA [id number] [place] [address] [place] Potassium [Moles/Vol] 3.6 mmol/L Low 3.7-5.1 [facility] Comment on above: Order Comment: Shira feldman Type: BLOOD SPECIMENOrdering Facility: [facility] Address: [address] [place] [address] Performed By: #### 2 ####[facility] LABORATORYCLIA [id number] [place] [address] [place] Sodium [Moles/Vol] 138 mmol/L Normal 136-144 [facility] Comment on above: Order Comment: Shira feldman Type: BLOOD SPECIMENOrdering Facility: [facility] Address: [address] [place] [address] Performed By: #### 2 ####[facility] LABORATORYCLIA [id number] [place] [address] [place] Urea nitrogen [Mass/Vol] 11 mg/dL Normal 9-24 [facility] Comment on above: Order Comment: Speci men Type: BLOOD SPECIMENOrdering Facility: [facility] Address: [address] [place] [address] Performed By: #### 2 4321-2, 52685-2 ####[facility] LABORATORYCLIA [id number] [address] [place] CASE MANAGEMon 08-16-2021 CASE MANAGEM Normal [facility] CBC W Auto Differential pane l (Bld)on 08-16-2021 Basophils (Bld) [#/Vol] 0.03 10*3/uL Normal <0.11 [facility] Comment on above: Order Comment: Speci men Type: BLOOD SPECIMENOrdering Facility: [facility] Address: [address] [place] [address] Performed By: #### 5 7021-8 ####[facility] LABORATORYCLIA [id number] [address] [place] Basophils/100 WBC (Bld) 0.4 % Normal [facility] Comment on above: Order Comment: Speci men Type: BLOOD SPECIMENOrdering Facility: [facility] Address: [address] [place] [address] Performed By: #### 5 7021-8 ####[facility] LABORATORYCLIA [id number] [address] [place] Differential cell count method Nom (Bld) Auto Normal [facility] Comment on above: Order Comment: Speci men Type: BLOOD SPECIMENOrdering Facility: [facility] Address: [address] [place] [address] Performed By: #### 5 7021-8 ####[facility] LABORATORYCLIA [id number] [place] [address] [place] Eosinophils (Bld) [#/Vol] 0.19 10*3/uL Normal <0.46 [facility] Comment on above: Order Comment: Speci men Type: BLOOD SPECIMENOrdering Facility: [facility] Address: [address] [place] [address] Performed By: #### 5 7021-8 ####[facility]ORATORYCLIA [id number] [address] Eosinophils/100 WBC (Bld) 2.5 % Normal [facility] Comment on above: Order Comment: Speci men Type: BLOOD SPECIMENOrdering Facility: [facility] Address: [address] [place] [address] Performed By: #### 5 7021-8 ####[facility] LABORATORYCLIA [id number] [address] Erythrocyte distribution width (RBC) [Ratio] 17.1 % High 11.5-15.0 [facility] Comment on above: Order Comment: Speci men Type: BLOOD SPECIMENOrdering Facility: [facility] Address: [address] [place] [address] Performed By: #### 5 7021-8 ####[facility] LABORATORYCLIA [id number] [address] Hematocrit (Bld) [Volume fraction] 29.2 % Low 39.0-51.0 [facility] Comment on above: Order Comment: Speci men Type: BLOOD SPECIMENOrdering Facility: [facility] Address: [address] [place] [address] Performed By: #### 5 7021-8 ####[facility] LABORATORYCLIA [id number] [address] Hemoglobin (Bld) [Mass/Vol] 9.0 g/dL Low 13.0-17.0 [facility] Comment on above: Order Comment: Speci men Type: BLOOD SPECIMENOrdering Facility: [facility] Address: [address] [place] [address] Performed By: #### 5 7021-8 ####[facility]ORATORYCLIA [id number] [address] [place] IMMATURE GRAN % 0.3 % Normal [facility] Comment on above: Order Comment: Speci men Type: BLOOD SPECIMENOrdering Facility: [facility] Address: [address] [place] [address] Performed By: #### 5 7021-8 ####[facility] LABORATORYCLIA [id number] [address] IMMATURE GRAN ABS <0.03 Normal <0.10 [facility] Comment on above: Order Comment: Speci men Type: BLOOD SPECIMENOrdering Facility: [facility] Address: [address] [place] [address] Performed By: #### 5 7021-8 ####[facility] LABORATORYCLIA [id number] [address] Lymphocytes (Bld) [#/Vol] 1.41 10*3/uL Normal 1.00-4.00 [facility] Comment on above: Order Comment: Speci men Type: BLOOD SPECIMENOrdering Facility: [facility] Address: [address] [place] [address] Performed By: #### 5 7021-8 ####[facility] LABORATORYCLIA [id number] [address] Lymphocytes/100 WBC (Bld) 18.4 % Normal [facility] Comment on above: Order Comment: Speci men Type: BLOOD SPECIMENOrdering Facility: [facility] Address: [address] [place] [address] Performed By: #### 5 7021-8 ####[facility] LABORATORYCLIA [id number] [address] MCH (RBC) [Entitic mass] 28.0 pg Normal 26.0-34.0 [facility] Comment on above: Order Comment: Speci men Type: BLOOD SPECIMENOrdering Facility: [facility] Address: [address] [place] [address] Performed By: #### 5 7021-8 ####[facility] LABORATORYCLIA [id number] [address] MCHC (RBC) [Mass/Vol] 30.8 g/dL Normal 30.5-36.0 [facility] Comment on above: Order Comment: Speci men Type: BLOOD SPECIMENOrdering Facility: [facility] Address: [address] [place] [address] Performed By: #### 5 7021-8 ####[facility] LABORATORYCLIA [id number] [address] [place] MCV (RBC) [Entitic vol] 91.0 fL Normal 80.0-100.0 [facility] Comment on above: Order Comment: Speci men Type: BLOOD SPECIMENOrdering Facility: [facility] Address: [address] [place] [address] Performed By: #### 5 7021-8 ####[facility] LABORATORYCLIA [id number] [address] STATES [facility] Monocytes (Bld) [#/Vol] 0.47 10*3/uL Normal <0.87 [facility] Comment on above: Order Comment: Speci men Type: BLOOD SPECIMENOrdering Facility: [facility] Address: [address] [place] [address] Performed By: #### 5 7021-8 ####[facility] LABORATORYCLIA [id number] [address] Monocytes/100 WBC (Bld) 6.1 % Normal [facility] Comment on above: Order Comment: Speci men Type: BLOOD SPECIMENOrdering Facility: [facility] Address: [address] [place] [address] Performed By: #### 5 7021-8 ####[facility]ORATORYCLIA [id number] [address] [place] Neutrophils (Bld) [#/Vol] 5.55 10*3/uL Normal 1.45-7.50 [facility] Comment on above: Order Comment: Speci men Type: BLOOD SPECIMENOrdering Facility: [facility] Address: [address] [place], [place] [address] Performed By: #### 5 7021-8 ####[facility]ORATORYCLIA [id number] [address] Neutrophils/100 WBC (Bld) 72.3 % Normal [facility] Comment on above: Order Comment: Speci men Type: BLOOD SPECIMENOrdering Facility: [facility] Address: [address] [place] [address] Performed By: #### 5 7021-8 ####[facility]ORATORYCLIA [id number] [address] [place] Nucleated RBC (Bld) [#/Vol] 10*3/uL Normal <0.01 [facility] Comment on above: Order Comment: Speci men Type: BLOOD SPECIMENOrdering Facility: [facility] Address: [address] [place] [address] Performed By: #### 5 7021-8 ####[facility]ORATORYCLIA [id number] [address] Nucleated RBC/100 WBC (Bld) [Ratio] 0.0 /100 WBC Normal [facility] Comment on above: Order Comment: Speci men Type: BLOOD SPECIMENOrdering Facility: [facility] Address: [address] [place] [address] Performed By: #### 5 7021-8 ####[facility]ORATORYCLIA [id number] [address] [place] Platelet mean volume (Bld) [Entitic vol] 9.3 fL Normal 9.0-12.7 [facility] Comment on above: Order Comment: Speci men Type: BLOOD SPECIMENOrdering Facility: [facility] Address: [address] [place] [address] Performed By: #### 5 7021-8 ####[facility]ORATORYCLIA [id number] [address] [place] Platelets (Bld) [#/Vol] 319 10*3/uL Normal 150-400 [facility] Comment on above: Order Comment: Speci men Type: BLOOD SPECIMENOrdering Facility: [facility] Address: [address] [place] [address] Performed By: #### 5 7021-8 ####[facility] LABORATORYCLIA [id number] [address] [place] RBC (Bld) [#/Vol] 3.21 10*6/uL Low 4.20-6.00 [facility] Comment on above: Order Comment: Speci men Type: BLOOD SPECIMENOrdering Facility: [facility] Address: [address] [place] [address] Performed By: #### 5 7021-8 ####[facility]ORATORYCLIA [id number] [address] [place] WBC (Bld) [#/Vol] 7.67 10*3/uL Normal 3.70-11.00 [facility] Comment on above: Order Comment: Speci men Type: BLOOD SPECIMENOrdering Facility: [facility] Address: [address] [place] [address] Performed By: #### 5 7021-8 ####[facility]ORATORYCLIA [id number] [address] [place] Basophils (Bld) [#/Vol] 0.04 10*3/uL Normal <0.11 [facility] Comment on above: Order Comment: Speci men Type: BLOOD SPECIMENOrdering Facility: [facility] Address: [address] [place] [address] Performed By: #### 5 7021-8 ####[facility]ORATORYCLIA [id number] [address] [place] Basophils/100 WBC (Bld) 0.5 % Normal [facility] Comment on above: Order Comment: Speci men Type: BLOOD SPECIMENOrdering Facility: [facility] Address: [address] [place] [address] Performed By: #### 5 7021-8 ####[facility]ORATORYCLIA [id number] [address] Differential cell count method Nom (Bld) Auto Normal [facility] Comment on above: Order Comment: Speci men Type: BLOOD SPECIMENOrdering Facility: [facility] Address: [address] [place] [address] Performed By: #### 5 7021-8 ####[facility]ORATORYCLIA [id number] [address] [place] Eosinophils (Bld) [#/Vol] 0.19 10*3/uL Normal <0.46 [facility] Comment on above: Order Comment: Speci men Type: BLOOD SPECIMENOrdering Facility: [facility] Address: [address] [place] [address] Performed By: #### 5 7021-8 ####[facility]ORATORYCLIA [id number] [address] Eosinophils/100 WBC (Bld) 2.5 % Normal [facility] Comment on above: Order Comment: Speci men Type: BLOOD SPECIMENOrdering Facility: [facility] Address: [address] [place] [address] Performed By: #### 5 7021-8 ####[facility]ORATORYCLIA [id number] [address] Erythrocyte distribution width (RBC) [Ratio] 17.2 % High 11.5-15.0 [facility] Comment on above: Order Comment: Speci men Type: BLOOD SPECIMENOrdering Facility: [facility] Address: [address] [place] [address] Performed By: #### 5 7021-8 ####[facility]ORATORYCLIA [id number] [address] [place] Hematocrit (Bld) [Volume fraction] 29.5 % Low 39.0-51.0 [facility] Comment on above: Order Comment: Speci men Type: BLOOD SPECIMENOrdering Facility: [facility] Address: [address] [place] [address] Performed By: #### 5 7021-8 ####[facility]ORATORYCLIA [id number] [address] STATES OF [facility] Hemoglobin (Bld) [Mass/Vol] 9.2 g/dL Low 13.0-17.0 [facility] Comment on above: Order Comment: Speci men Type: BLOOD SPECIMENOrdering Facility: [facility] Address: [address] [place] [address] Performed By: #### 5 7021-8 ####[facility]ORATORYCLIA [id number] [address] IMMATURE GRAN % 0.4 % Normal [facility] Comment on above: Order Comment: Speci men Type: BLOOD SPECIMENOrdering Facility: [facility] Address: [address] [place] [address] Performed By: #### 5 7021-8 ####[facility]ORATORYCLIA [id number] [address] IMMATURE GRAN ABS 0.03 k/uL Normal <0.10 [facility] Comment on above: Order Comment: Speci men Type: BLOOD SPECIMENOrdering Facility: [facility] Address: [address] [place] [address] Performed By: #### 5 7021-8 ####[facility]ORATORYCLIA [id number] [address] [place] Lymphocytes (Bld) [#/Vol] 1.50 10*3/uL Normal 1.00-4.00 [facility] Comment on above: Order Comment: Speci men Type: BLOOD SPECIMENOrdering Facility: [facility] Address: [address] [place] [address] Performed By: #### 5 7021-8 ####[facility]ORATORYCLIA [id number] [address] Lymphocytes/100 WBC (Bld) 19.7 % Normal [facility] Comment on above: Order Comment: Speci men Type: BLOOD SPECIMENOrdering Facility: [facility] Address: [address] [place] [address] Performed By: #### 5 7021-8 ####[facility]ORATORYCLIA [id number] [address] MCH (RBC) [Entitic mass] 28.3 pg Normal 26.0-34.0 [facility] Comment on above: Order Comment: Speci men Type: BLOOD SPECIMENOrdering Facility: [facility] Address: [address] [place] [address] Performed By: #### 5 7021-8 ####[facility]ORATORYCLIA [id number] [address] MCHC (RBC) [Mass/Vol] 31.2 g/dL Normal 30.5-36.0 [facility] Comment on above: Order Comment: Speci men Type: BLOOD SPECIMENOrdering Facility: [facility] Address: [address] [place] [address] Performed By: #### 5 7021-8 ####[facility]ORATORYCLIA [id number] [address] STATES [facility] MCV (RBC) [Entitic vol] 90.8 fL Normal 80.0-100.0 [facility] Comment on above: Order Comment: Speci men Type: BLOOD SPECIMENOrdering Facility: [facility] Address: [address] [place] [address] Performed By: #### 5 7021-8 ####[facility]ORATORYCLIA [id number] [address] Monocytes (Bld) [#/Vol] 0.49 10*3/uL Normal <0.87 [facility] Comment on above: Order Comment: Speci men Type: BLOOD SPECIMENOrdering Facility: [facility] Address: [address] [place] [address] Performed By: #### 5 7021-8 ####[facility]ORATORYCLIA [id number] [address] Monocytes/100 WBC (Bld) 6.4 % Normal [facility] Comment on above: Order Comment: Speci men Type: BLOOD SPECIMENOrdering Facility: [facility] Address: [address] [place] [address] Performed By: #### 5 7021-8 ####[facility]ORATORYCLIA [id number] [address] [place] Neutrophils (Bld) [#/Vol] 5.38 10*3/uL Normal 1.45-7.50 [facility] Comment on above: Order Comment: Speci men Type: BLOOD SPECIMENOrdering Facility: [facility] Address: [address] [place] [address] Performed By: #### 5 7021-8 ####[facility]ORATORYCLIA [id number] [address] [place] Neutrophils/100 WBC (Bld) 70.5 % Normal [facility] Comment on above: Order Comment: Speci men Type: BLOOD SPECIMENOrdering Facility: [facility] Address: [address] [place] [address] Performed By: #### 5 7021-8 ####[facility]ORATORYCLIA [id number] [address] [place] Nucleated RBC (Bld) [#/Vol] 10*3/uL Normal <0.01 [facility] Comment on above: Order Comment: Speci men Type: BLOOD SPECIMENOrdering Facility: [facility] Address: [address] [place] [address] Performed By: #### 5 7021-8 ####[facility]ORATORYCLIA [id number] [address] [place] Nucleated RBC/100 WBC (Bld) [Ratio] 0.0 /100 WBC Normal [facility] Comment on above: Order Comment: Speci men Type: BLOOD SPECIMENOrdering Facility: [facility] Address: [address] [address] Performed By: #### 5 7021-8 ####[facility]ORATORYCLIA [id number] [place] [address] [place] Platelet mean volume (Bld) [Entitic vol] 9.0 fL Normal 9.0-12.7 [facility] Comment on above: Order Comment: Speci men Type: BLOOD SPECIMENOrdering Facility: [facility] Address: [address] [place] [address] Performed By: #### 5 7021-8 ####[facility]ORATORYCLIA [id number] [place] [address] [place] Platelets (Bld) [#/Vol] 316 10*3/uL Normal 150-400 [facility] Comment on above: Order Comment: Speci men Type: BLOOD SPECIMENOrdering Facility: [facility] Address: [address] [place] [address] Performed By: #### 5 7021-8 ####[facility]ORATORYCLIA [id number] [place] [address] [place] RBC (Bld) [#/Vol] 3.25 10*6/uL Low 4.20-6.00 [facility] Comment on above: Order Comment: Speci men Type: BLOOD SPECIMENOrdering Facility: [facility] Address: [address] [place] [address] Performed By: #### 5 7021-8 ####[facility]ORATORYCLIA [id number] [address] [place] WBC (Bld) [#/Vol] 7.63 10*3/uL Normal 3.70-11.00 [facility] Comment on above: Order Comment: Speci men Type: BLOOD SPECIMENOrdering Facility: [facility] Address: [address] [place] [address] Performed By: #### 5 7021-8 ####[facility]ORATORYCLIA [id number] [address] [place] Basophils (Bld) [#/Vol] Normal <0.11 [facility] Comment on above: Order Comment: Speci men Type: BLOOD SPECIMENOrdering Facility: [facility] Address: [address] [place] [address] Result Comment: Carolina Owens RN informed lab after results autoverified that she rd on the wrong patient. Lab to credit. Nurse to redraw on correct patient.Corrected result: Previously reported as 0.04 k/uL on 08/16/2021 at 4:44 AM EDT. Performed By: #### 5 7021-8 ####[facility]ORATORYCLIA [id number] [address] STATES OF [facility] Basophils/100 WBC (Bld) Normal [facility] Comment on above: Order Comment: Johni francia Type: BLOOD SPECIMENOrdering Facility: [facility] Address: [address] [place] [address] Result Comment: Tati ected result: Previously reported as 0.4 % on 08/16/2021 at 4:44 AM EDT. Performed By: #### 5 7021-8 ####[facility]ORATORYCLIA [id number] [address] STATES OF [facility] CBC W Differential panel, method unspecified (Bld) Normal [facility] Comment on above: Order Comment: Speccara feldman Type: BLOOD SPECIMENOrdering Facility: [facility] Address: [address] [place] [address] Result Comment: Carolina Owens RN informed lab after results autoverified that she rd on the wrong patient. Lab to credit. Nurse to redraw on correct patient. Performed By: #### 5 7021-8 ####[facility]ORATORYCLIA [id number] [address] STATES OF [facility] Differential cell count method Nom (Bld) Normal [facility] Comment on above: Order Comment: Speci francia Type: BLOOD SPECIMENOrdering Facility: [facility] Address: [address] [place] [address] Result Comment: Carolina Owens RN informed lab after results autoverified that she rd on the wrong patient. Lab to credit. Nurse to redraw on correct patient.Corrected result: Previously reported as Auto on 08/16/2021 at 4:44 AM EDT. Performed By: #### 5 7021-8 ####[facility]ORATORYCLIA [id number] [address] Eosinophils (Bld) [#/Vol] Normal <0.46 [facility] Comment on above: Order Comment: Speci men Type: BLOOD SPECIMENOrdering Facility: [facility] Address: [address] [place] [address] Result Comment: Carolina Owens RN informed lab after results autoverified that she rd on the wrong patient. Lab to credit. Nurse to redraw on correct patient.Corrected result: Previously reported as 0.07 k/uL on 08/16/2021 at 4:44 AM EDT. Performed By: #### 5 7021-8 ####[facility]ORATORYCLIA [id number] [address] Eosinophils/100 WBC (Bld) Normal [facility] Comment on above: Order Comment: Speci men Type: BLOOD SPECIMENOrdering Facility: [facility] Address: [address] [place] [address] Result Comment: Carolina Owens RN informed lab after results autoverified that she rd on the wrong patient. Lab to credit. Nurse to redraw on correct patient.Corrected result: Previously reported as 0.7 % on 08/16/2021 at 4:44 AM EDT. Performed By: #### 5 7021-8 ####[facility]ORATORYCLIA [id number] [address] Erythrocyte distribution width (RBC) [Ratio] Normal 11.5-15.0 [facility] Comment on above: Order Comment: Speci men Type: BLOOD SPECIMENOrdering Facility: [facility] Address: [address] [place] [address] Result Comment: Carolina Owens RN informed lab after results autoverified that she rd on the wrong patient. Lab to credit. Nurse to redraw on correct patient.Corrected result: Previously reported as 14.2 % on 08/16/2021 at 4:44 AM EDT. Performed By: #### 5 7021-8 ####[facility]ORATORYCLIA [id number] [address] Hematocrit (Bld) [Volume fraction] Normal 39.0-51.0 [facility] Comment on above: Order Comment: Speci men Type: BLOOD SPECIMENOrdering Facility: [facility] Address: [address] [place] [address] Result Comment: Carolina Owens RN informed lab after results autoverified that she rd on the wrong patient. Lab to credit. Nurse to redraw on correct patient.Corrected result: Previously reported as 34.3 % on 08/16/2021 at 4:44 AM EDT. Performed By: #### 5 7021-8 ####[facility]ORATORYCLIA [id number] [address] Hemoglobin (Bld) [Mass/Vol] Normal 13.0-17.0 [facility] Comment on above: Order Comment: Speci men Type: BLOOD SPECIMENOrdering Facility: [facility] Address: [address] [place] [address] Result Comment: Carolina Owens RN informed lab after results autoverified that she dr on the wrong patient. Lab to credit. Nurse to redraw on correct patient.Corrected result: Previously reported as 11.2 g/dL on 08/16/2021 at 4:44 AM EDT. Performed By: #### 5 7021-8 ####[facility]ORATORYCLIA [id number] [address] [place] IMMATURE GRAN % Normal [facility] Comment on above: Order Comment: Speci men Type: BLOOD SPECIMENOrdering Facility: [facility] Address: [address] [place] [address] Result Comment: Carolina Owens RN informed lab after results autoverified that she rd on the wrong patient. Lab to credit. Nurse to redraw on correct patient.Corrected result: Previously reported as 0.8 % on 08/16/2021 at 4:44 AM EDT. Performed By: #### 5 7021-8 ####[facility] LABORATORYCLIA [id number] [address] STATES [facility] IMMATURE GRAN ABS Normal <0.10 [facility] Comment on above: Order Comment: Speci men Type: BLOOD SPECIMENOrdering Facility: [facility] Address: [address] [place] [address] Result Comment: Tati ected result: Previously reported as 0.08 k/uL on 08/16/2021 at 4:44 AM EDT. Performed By: #### 5 7021-8 ####[facility]ORATORYCLIA [id number] [address] Lymphocytes (Bld) [#/Vol] Normal 1.00-4.00 [facility] Comment on above: Order Comment: Speci [facility] Type: BLOOD SPECIMENOrdering Facility: [facility] Address: [address] [place] [address] Result Comment: Carolina Owens RN informed lab after results autoverified that she rd on the wrong patient. Lab to credit. Nurse to redraw on correct patient.Corrected result: Previously reported as 1.17 k/uL on 08/16/2021 at 4:44 AM EDT. Performed By: #### 5 7021-8 ####[facility]ORATORYCLIA [id number] [address] Lymphocytes/100 WBC (Bld) Normal [facility] Comment on above: Order Comment: Speci men Type: BLOOD SPECIMENOrdering Facility: [facility] Address: [address] [place] [address] Result Comment: Carolina Owens RN informed lab after results autoverified that she rd on the wrong patient. Lab to credit. Nurse to redraw on correct patient.Corrected result: Previously reported as 12.0 % on 08/16/2021 at 4:44 AM EDT. Performed By: #### 5 7021-8 ####[facility] LABORATORYCLIA [id number] [place] [address] [place] MCHC (RBC) [Mass/Vol] Normal 30.5-36.0 [facility] Comment on above: Order Comment: Speci men Type: BLOOD SPECIMENOrdering Facility: [facility] Address: [address] [place] [address] Result Comment: Carolina Owens RN informed lab after results autoverified that she rd on the wrong patient. Lab to credit. Nurse to redraw on correct patient.Corrected result: Previously reported as 32.7 g/dL on 08/16/2021 at 4:44 AM EDT. Performed By: #### 5 7021-8 ####[facility] LABORATORYCLIA [id number] [address] MCV (RBC) [Entitic vol] Normal 80.0-100.0 [facility] Comment on above: Order Comment: Speci men Type: BLOOD SPECIMENOrdering Facility: [facility] Address: [address] [place] [address] Result Comment: Carolina Owens RN informed lab after results autoverified that she rd on the wrong patient. Lab to credit. Nurse to redraw on correct patient.Corrected result: Previously reported as 94.2 fL on 08/16/2021 at 4:44 AM EDT. Performed By: #### 5 7021-8 ####[facility] LABORATORYCLIA [id number] [address] [place] Monocytes (Bld) [#/Vol] Normal <0.87 [facility] Comment on above: Order Comment: Speci men Type: BLOOD SPECIMENOrdering Facility: [facility] Address: [address] [place] [address] Result Comment: Carolina Owens RN informed lab after results autoverified that she rd on the wrong patient. Lab to credit. Nurse to redraw on correct patient.Corrected result: Previously reported as 0.99 k/uL on 08/16/2021 at 4:44 AM EDT. Performed By: #### 5 7021-8 ####[facility] LABORATORYCLIA [id number] [address] [place] Monocytes/100 WBC (Bld) Normal [facility] Comment on above: Order Comment: Speci francia Type: BLOOD SPECIMENOrdering Facility: [facility] Address: [address] [place] [address] Result Comment: Carolina Owens RN informed lab after results autoverified that she rd on the wrong patient. Lab to credit. Nurse to redraw on correct patient.Corrected result: Previously reported as 10.2 % on 08/16/2021 at 4:44 AM EDT. Performed By: #### 5 7021-8 ####[facility]ORATORYCLIA [id number] [address] [place] Neutrophils (Bld) [#/Vol] Normal 1.45-7.50 [facility] Comment on above: Order Comment: Speccara feldman Type: BLOOD SPECIMENOrdering Facility: [facility] Address: [address] [place] [address] Result Comment: Carolina Owens RN informed lab after results autoverified that she rd on the wrong patient. Lab to credit. Nurse to redraw on correct patient.Corrected result: Previously reported as 7.40 k/uL on 08/16/2021 at 4:44 AM EDT. Performed By: #### 5 7021-8 ####[facility]ORATORYCLIA [id number] [address] STATES OF [facility] Neutrophils/100 WBC (Bld) Normal [facility] Comment on above: Order Comment: Speci francia Type: BLOOD SPECIMENOrdering Facility: [facility] Address: [address] [place] [address] Result Comment: Carolina Owens RN informed lab after results autoverified that she rd on the wrong patient. Lab to credit. Nurse to redraw on correct patient.Corrected result: Previously reported as 75.9 % on 08/16/2021 at 4:44 AM EDT. Performed By: #### 5 7021-8 ####[facility] LABORATORYCLIA [id number] [place] [address] [place] Platelet mean volume (Bld) [Entitic vol] Normal 9.0-12.7 [facility] Comment on above: Order Comment: Speci men Type: BLOOD SPECIMENOrdering Facility: [facility] Address: [address] [place] [address] Result Comment: Carolina Owens RN informed lab after results autoverified that she rd on the wrong patient. Lab to credit. Nurse to redraw on correct patient.Corrected result: Previously reported as 9.1 fL on 08/16/2021 at 4:44 AM EDT. Performed By: #### 5 7021-8 ####[facility]ORATORYCLIA [id number] [place] [address] [place] Platelets (Bld) [#/Vol] Normal 150-400 [facility] Comment on above: Order Comment: Speci men Type: BLOOD SPECIMENOrdering Facility: [facility] Address: [address] [place] [address] Result Comment: Carolina Owens RN informed lab after results autoverified that she rd on the wrong patient. Lab to credit. Nurse to redraw on correct patient.Corrected result: Previously reported as 338 k/uL on 08/16/2021 at 4:44 AM EDT. Performed By: #### 5 7021-8 ####[facility]ORATORYCLIA [id number] [place] [address] [place] RBC (Bld) [#/Vol] Normal 4.20-6.00 [facility] Comment on above: Order Comment: Speci men Type: BLOOD SPECIMENOrdering Facility: [facility] Address: [address] [place] [address] Result Comment: Carolina Owens RN informed lab after results autoverified that she rd on the wrong patient. Lab to credit. Nurse to redraw on correct patient.Corrected result: Previously reported as 3.64 m/uL on 08/16/2021 at 4:44 AM EDT. Performed By: #### 5 7021-8 ####[facility]ORATORYCLIA [id number] [place] [address] [facility] [place] WBC (Bld) [#/Vol] Normal 3.70-11.00 [facility] Comment on above: Order Comment: Speci men Type: BLOOD SPECIMENOrdering Facility: [facility] Address: [address] [place] [address] Result Comment: Carolina Owens RN informed lab after results autoverified that she rd on the wrong patient. Lab to credit. Nurse to redraw on correct patient.Corrected result: Previously reported as 9.75 k/uL on 08/16/2021 at 4:44 AM EDT. Performed By: #### 5 7021-8 ####[facility]ORATORYCLIA [id number] [address] [place] CONSULT PROGon 08-16-2021 CONSULT PROG [facility] Magnesium SerPl-mCncon 08-16 Magnesium [Mass/Vol] 1.8 mg/dL Normal 1.7-2.3 [facility] Comment on above: Order Comment: Speci men Type: BLOOD SPECIMENOrdering Facility: [facility] Address: [address] [place] [address] Performed By: #### 2 4321-2, 84845-9 ####[facility]ORATORYCLIA [id number] [place] [address] [place] NURSING PROGon 08-16-2021 NURSING PROG Normal [facility] Basic metabolic 2000 panelon 08-15-2021 Anion gap [Moles/Vol] 13 mmol/L Normal 9-18 [facility] Comment on above: Order Comment: Speci men Type: BLOOD SPECIMENOrdering Facility: [facility] Address: [address] [place] [address] Performed By: #### 2 4321-2 ####[facility] LABORATORYCLIA [id number] [place] [address] [place] Calcium [Mass/Vol] 9.0 mg/dL Normal 8.5-10.2 [facility] Comment on above: Order Comment: Speci men Type: BLOOD SPECIMENOrdering Facility: [facility] Address: [address] [address] Performed By: #### 2 4321-2 ####[facility]ORATORYCLIA [id number] [place] [address] [place] Chloride [Moles/Vol] 95 mmol/L Low 97-105 [facility] Comment on above: Order Comment: Speci men Type: BLOOD SPECIMENOrdering Facility: [facility] Address: [address] [place] [address] Performed By: #### 2 4321-2 ####[facility]ORATORYCLIA [id number] [place] [address] [place] CO2 [Moles/Vol] 28 mmol/L Normal 22-30 [facility] Comment on above: Order Comment: Speci men Type: BLOOD SPECIMENOrdering Facility: [facility] Address: [address] [place] [address] Performed By: #### 2 4321-2 ####[facility] LABORATORYCLIA [id number] [address] STATES OF [facility] Creatinine [Mass/Vol] 0.50 mg/dL Low 0.73-1.22 [facility] Comment on above: Order Comment: Speci men Type: BLOOD SPECIMENOrdering Facility: [facility] Address: [address] [place] [address] Performed By: #### 2 4321-2 ####[facility] LABORATORYCLIA [id number] [address] ESTIMATED GLOMERULAR FILTRATION RATE 110 mL/min/1.73m??? Normal >=60 [facility] Comment on above: Order Comment: Speci men Type: BLOOD SPECIMENOrdering Facility: [facility] Address: [address] [place] [address] Result Comment: Luzmaria mated Glomerular Filtration Rate [...] actual GFR. Performed By: #### 2 4321-2 ####[facility]ORATORYCLIA [id number] [place] [address] [place] Glucose [Mass/Vol] 106 mg/dL High 74-99 [facility] Comment on above: Order Comment: Shira feldman Type: BLOOD SPECIMENOrdering Facility: [facility] Address: [address] [place] [address] Result Comment: The [employer] (ADA) [...] 2016.39(Suppl 1). Performed By: #### 2 4321-2 ####[facility]ORATORYCLIA [id number] [place] [address] [place] Potassium [Moles/Vol] 3.3 mmol/L Low 3.7-5.1 [facility] Comment on above: Order Comment: Shira feldman Type: BLOOD SPECIMENOrdering Facility: [facility] Address: [address] [address] Performed By: #### 2 4321-2 ####[facility]ORATORYCLIA [id number] [place] [address] [place] Sodium [Moles/Vol] 136 mmol/L Normal 136-144 [facility] Comment on above: Order Comment: Shira feldman Type: BLOOD SPECIMENOrdering Facility: [facility] Address: [address] [address] Performed By: #### 2 4321-2 ####[facility] LABORATORYCLIA [id number] [address] [place] Urea nitrogen [Mass/Vol] 11 mg/dL Normal 9-24 [facility] Comment on above: Order Comment: Speci men Type: BLOOD SPECIMENOrdering Facility: [facility] Address: [address] [place] [address] Performed By: #### 2 4321-2 ####[facility] LABORATORYCLIA [id number] [address] [place] CASE MANAGEMon 08-15-2021 CASE MANAGEM Normal [facility] CBC W Auto Differential pane l (Bld)on 08-15-2021 Basophils (Bld) [#/Vol] 0.03 10*3/uL Normal <0.11 [facility] Comment on above: Order Comment: Speci men Type: BLOOD SPECIMENOrdering Facility: [facility] Address: [address] [place] [address] Performed By: #### 5 7021-8 ####[facility] LABORATORYCLIA [id number] [address] [place] Basophils/100 WBC (Bld) 0.4 % Normal [facility] Comment on above: Order Comment: Speci men Type: BLOOD SPECIMENOrdering Facility: [facility] Address: [address] [place] [address] Performed By: #### 5 7021-8 ####[facility] LABORATORYCLIA [id number] [address] STATES OF [facility] Differential cell count method Nom (Bld) Auto Normal [facility] Comment on above: Order Comment: Speci men Type: BLOOD SPECIMENOrdering Facility: [facility] Address: [address] [place] [address] Performed By: #### 5 7021-8 ####[facility] LABORATORYCLIA [id number] [place] [address] [place] Eosinophils (Bld) [#/Vol] 0.20 10*3/uL Normal <0.46 [facility] Comment on above: Order Comment: Speci men Type: BLOOD SPECIMENOrdering Facility: [facility] Address: [address] [place] [address] Performed By: #### 5 7021-8 ####[facility]ORATORYCLIA [id number] [address] STATES OF [facility] Eosinophils/100 WBC (Bld) 2.5 % Normal [facility] Comment on above: Order Comment: Speci men Type: BLOOD SPECIMENOrdering Facility: [facility] Address: [address] [place] [address] Performed By: #### 5 7021-8 ####[facility]ORATORYCLIA [id number] [address] Erythrocyte distribution width (RBC) [Ratio] 16.7 % High 11.5-15.0 [facility] Comment on above: Order Comment: Speci men Type: BLOOD SPECIMENOrdering Facility: [facility] Address: [address] [place] [address] Performed By: #### 5 7021-8 ####[facility]ORATORYCLIA [id number] [address] Hematocrit (Bld) [Volume fraction] 30.3 % Low 39.0-51.0 [facility] Comment on above: Order Comment: Speci men Type: BLOOD SPECIMENOrdering Facility: [facility] Address: [address] [place] [address] Performed By: #### 5 7021-8 ####[facility]ORATORYCLIA [id number] [address] [place] Hemoglobin (Bld) [Mass/Vol] 9.4 g/dL Low 13.0-17.0 [facility] Comment on above: Order Comment: Speci men Type: BLOOD SPECIMENOrdering Facility: [facility] Address: [address] [place] [address] Performed By: #### 5 7021-8 ####[facility]ORATORYCLIA [id number] [address] [place] IMMATURE GRAN % 0.4 % Normal [facility] Comment on above: Order Comment: Speci men Type: BLOOD SPECIMENOrdering Facility: [facility] Address: [address] [place] [address] Performed By: #### 5 7021-8 ####[facility]ORATORYCLIA [id number] [address] IMMATURE GRAN ABS 0.03 k/uL Normal <0.10 [facility] Comment on above: Order Comment: Speci men Type: BLOOD SPECIMENOrdering Facility: [facility] Address: [address] [place] [address] Performed By: #### 5 7021-8 ####[facility]ORATORYCLIA [id number] [address] Lymphocytes (Bld) [#/Vol] 1.50 10*3/uL Normal 1.00-4.00 [facility] Comment on above: Order Comment: Speci men Type: BLOOD SPECIMENOrdering Facility: [facility] Address: [address] [place] [address] Performed By: #### 5 7021-8 ####[facility]ORATORYCLIA [id number] [address] Lymphocytes/100 WBC (Bld) 18.5 % Normal [facility] Comment on above: Order Comment: Speci men Type: BLOOD SPECIMENOrdering Facility: [facility] Address: [address] [place] [address] Performed By: #### 5 7021-8 ####[facility]ORATORYCLIA [id number] [address] STATES [facility] MCH (RBC) [Entitic mass] 29.0 pg Normal 26.0-34.0 [facility] Comment on above: Order Comment: Speci men Type: BLOOD SPECIMENOrdering Facility: [facility] Address: [address] [place] [address] Performed By: #### 5 7021-8 ####[facility]ORATORYCLIA [id number] [address] STATES OF [facility] MCHC (RBC) [Mass/Vol] 31.0 g/dL Normal 30.5-36.0 [facility] Comment on above: Order Comment: Speci men Type: BLOOD SPECIMENOrdering Facility: [facility] Address: [address] [place] [address] Performed By: #### 5 7021-8 ####[facility]ORATORYCLIA [id number] [address] MCV (RBC) [Entitic vol] 93.5 fL Normal 80.0-100.0 [facility] Comment on above: Order Comment: Speci men Type: BLOOD SPECIMENOrdering Facility: [facility] Address: [address] [place] [address] Performed By: #### 5 7021-8 ####[facility]ORATORYCLIA [id number] [address] [place] Monocytes (Bld) [#/Vol] 0.47 10*3/uL Normal <0.87 [facility] Comment on above: Order Comment: Speci men Type: BLOOD SPECIMENOrdering Facility: [facility] Address: [address] [place] [address] Performed By: #### 5 7021-8 ####[facility]ORATORYCLIA [id number] [address] Monocytes/100 WBC (Bld) 5.8 % Normal [facility] Comment on above: Order Comment: Speci men Type: BLOOD SPECIMENOrdering Facility: [facility] Address: [address] [place] [address] Performed By: #### 5 7021-8 ####[facility]ORATORYCLIA [id number] [address] [place] Neutrophils (Bld) [#/Vol] 5.87 10*3/uL Normal 1.45-7.50 [facility] Comment on above: Order Comment: Speci men Type: BLOOD SPECIMENOrdering Facility: [facility] Address: [address] [place] [address] Performed By: #### 5 7021-8 ####[facility]ORATORYCLIA [id number] [address] Neutrophils/100 WBC (Bld) 72.4 % Normal [facility] Comment on above: Order Comment: Speci men Type: BLOOD SPECIMENOrdering Facility: [facility] Address: [address] [place] [address] Performed By: #### 5 7021-8 ####[facility]ORATORYCLIA [id number] [address] Nucleated RBC (Bld) [#/Vol] 10*3/uL Normal <0.01 [facility] Comment on above: Order Comment: Speci men Type: BLOOD SPECIMENOrdering Facility: [facility] Address: [address] [place] [address] Performed By: #### 5 7021-8 ####[facility]ORATORYCLIA [id number] [address] Nucleated RBC/100 WBC (Bld) [Ratio] 0.0 /100 WBC Normal [facility] Comment on above: Order Comment: Speci men Type: BLOOD SPECIMENOrdering Facility: [facility] Address: [address] [place] [address] Performed By: #### 5 7021-8 ####[facility]ORATORYCLIA [id number] [address] Platelet mean volume (Bld) [Entitic vol] 9.4 fL Normal 9.0-12.7 [facility] Comment on above: Order Comment: Speci men Type: BLOOD SPECIMENOrdering Facility: [facility] Address: [address] [place] [address] Performed By: #### 5 7021-8 ####[facility]ORATORYCLIA [id number] [address] [place] Platelets (Bld) [#/Vol] 290 10*3/uL Normal 150-400 [facility] Comment on above: Order Comment: Speci men Type: BLOOD SPECIMENOrdering Facility: [facility] Address: [address] [place] [address] Performed By: #### 5 7021-8 ####[facility]ORATORYCLIA [id number] [address] STATES OF [facility] RBC (Bld) [#/Vol] 3.24 10*6/uL Low 4.20-6.00 [facility] Comment on above: Order Comment: Speci men Type: BLOOD SPECIMENOrdering Facility: [facility] Address: [address] [place] [address] Performed By: #### 5 7021-8 ####[facility]ORATORYCLIA [id number] [address] STATES OF [facility] WBC (Bld) [#/Vol] 8.10 10*3/uL Normal 3.70-11.00 [facility] Comment on above: Order Comment: Speci men Type: BLOOD SPECIMENOrdering Facility: [facility] Address: [address] [place] [address] Performed By: #### 5 7021-8 ####[facility] LABORATORYCLIA [id number] [address] OF [facility] THERAPY NTon 08-15-2021 THERAPY NT Normal [facility] THERAPY NT Normal [facility] THERAPY NT Normal [facility] Basic metabolic 2000 panelon 08-14-2021 Anion gap [Moles/Vol] 10 mmol/L Normal 9-18 [facility] Comment on above: Order Comment: Speci men Type: BLOOD SPECIMENOrdering Facility: [facility] Address: [address] [place] [address] Performed By: #### 2 4321-2 ####[facility]ORATORYCLIA [id number] [address] [place] Calcium [Mass/Vol] 8.8 mg/dL Normal 8.5-10.2 [facility] Comment on above: Order Comment: Speci men Type: BLOOD SPECIMENOrdering Facility: [facility] Address: [address] [place] [address] Performed By: #### 2 4321-2 ####[facility] LABORATORYCLIA [id number] [place] [address] [place] Chloride [Moles/Vol] 92 mmol/L Low 97-105 [facility] Comment on above: Order Comment: Speci men Type: BLOOD SPECIMENOrdering Facility: [facility] Address: [address] [place] [address] Performed By: #### 2 4321-2 ####[facility]ORATORYCLIA [id number] [place] [address] [place] CO2 [Moles/Vol] 29 mmol/L Normal 22-30 [facility] Comment on above: Order Comment: Speci men Type: BLOOD SPECIMENOrdering Facility: [facility] Address: [address] [place] [address] Performed By: #### 2 4321-2 ####[facility] LABORATORYCLIA [id number] [place] [address] [place] Creatinine [Mass/Vol] 0.49 mg/dL Low 0.73-1.22 [facility] Comment on above: Order Comment: Speci men Type: BLOOD SPECIMENOrdering Facility: [facility] Address: [address] [place] [address] Performed By: #### 2 4321-2 ####[facility] LABORATORYCLIA [id number] [address] OF [facility] ESTIMATED GLOMERULAR FILTRATION RATE 111 mL/min/1.73m??? Normal >=60 [facility] Comment on above: Order Comment: Speci men Type: BLOOD SPECIMENOrdering Facility: [facility] Address: [address] [place] [address] Result Comment: Luzmaria mated Glomerular Filtration Rate [...] actual GFR. Performed By: #### 2 4321-2 ####[facility] LABORATORYCLIA [id number] [place] [address] [place] Glucose [Mass/Vol] 104 mg/dL High 74-99 [facility] Comment on above: Order Comment: Shira feldman Type: BLOOD SPECIMENOrdering Facility: [facility] Address: [address] [id number] Result Comment: The [employer] (ADA) [...] 2016.39(Suppl 1). Performed By: #### 2 4321-2 ####[facility] LABORATORYCLIA [id number] [place] [address] [place] Potassium [Moles/Vol] 3.1 mmol/L Low 3.7-5.1 [facility] Comment on above: Order Comment: Shira feldman Type: BLOOD SPECIMENOrdering Facility: [facility] Address: [address] [place] [address] Performed By: #### 2 4321-2 ####[facility] LABORATORYCLIA [id number] [place] [address] [place] Sodium [Moles/Vol] 131 mmol/L Low 136-144 [facility] Comment on above: Order Comment: Shira feldman Type: BLOOD SPECIMENOrdering Facility: [facility] Address: [address] [address] Performed By: #### 2 4321-2 ####[facility] LABORATORYCLIA [id number] [address] STATES [facility] Urea nitrogen [Mass/Vol] 13 mg/dL Normal 9-24 [facility] Comment on above: Order Comment: Speci men Type: BLOOD SPECIMENOrdering Facility: [facility] Address: [address] [place] [address] Performed By: #### 2 4321-2 ####[facility] LABORATORYCLIA [id number] [address] [place] CBC W Auto Differential pane l (Bld)on 08-14-2021 Basophils (Bld) [#/Vol] 10*3/uL Normal <0.11 [facility] Comment on above: Order Comment: Speci men Type: BLOOD SPECIMENOrdering Facility: [facility] Address: [address] [place] [address] Performed By: #### 5 7021-8 ####[facility] LABORATORYCLIA [id number] [address] [place] Basophils/100 WBC (Bld) 0.2 % Normal [facility] Comment on above: Order Comment: Speci men Type: BLOOD SPECIMENOrdering Facility: [facility] Address: [address] [place] [address] Performed By: #### 5 7021-8 ####[facility] LABORATORYCLIA [id number] [address] Differential cell count method Nom (Bld) Auto Normal [facility] Comment on above: Order Comment: Speci men Type: BLOOD SPECIMENOrdering Facility: [facility] Address: [address] [place] [address] Performed By: #### 5 7021-8 ####[facility]ORATORYCLIA [id number] [place] [address] [place] Eosinophils (Bld) [#/Vol] 0.23 10*3/uL Normal <0.46 [facility] Comment on above: Order Comment: Speci men Type: BLOOD SPECIMENOrdering Facility: [facility] Address: [address] [place] [address] Performed By: #### 5 7021-8 ####[facility]ORATORYCLIA [id number] [address] [place] Eosinophils/100 WBC (Bld) 2.7 % Normal [facility] Comment on above: Order Comment: Speci men Type: BLOOD SPECIMENOrdering Facility: [facility] Address: [address] [place] [address] Performed By: #### 5 7021-8 ####[facility]ORATORYCLIA [id number] [address] [place] Erythrocyte distribution width (RBC) [Ratio] 16.6 % High 11.5-15.0 [facility] Comment on above: Order Comment: Speci men Type: BLOOD SPECIMENOrdering Facility: [facility] Address: [address] [place] [address] Performed By: #### 5 7021-8 ####[facility] LABORATORYCLIA [id number] [address] [place] Hematocrit (Bld) [Volume fraction] 28.6 % Low 39.0-51.0 [facility] Comment on above: Order Comment: Speci men Type: BLOOD SPECIMENOrdering Facility: [facility] Address: [address] [place] [address] Performed By: #### 5 7021-8 ####[facility]ORATORYCLIA [id number] [address] [place] Hemoglobin (Bld) [Mass/Vol] 9.0 g/dL Low 13.0-17.0 [facility] Comment on above: Order Comment: Speci men Type: BLOOD SPECIMENOrdering Facility: [facility] Address: [address] [place] [address] Performed By: #### 5 7021-8 ####[facility]ATORYCLIA [id number] [address] IMMATURE GRAN % 0.2 % Normal [facility] Comment on above: Order Comment: Speci men Type: BLOOD SPECIMENOrdering Facility: [facility] Address: [address] [place] [address] Performed By: #### 5 7021-8 ####[facility]ORATORYCLIA [id number] [address] IMMATURE GRAN ABS <0.03 Normal <0.10 [facility] Comment on above: Order Comment: Speci men Type: BLOOD SPECIMENOrdering Facility: [facility] Address: [address] [place] [address] Performed By: #### 5 7021-8 ####[facility]ORATORYCLIA [id number] [address] Lymphocytes (Bld) [#/Vol] 1.33 10*3/uL Normal 1.00-4.00 [facility] Comment on above: Order Comment: Speci men Type: BLOOD SPECIMENOrdering Facility: [facility] Address: [address] [place] [address] Performed By: #### 5 7021-8 ####[facility]ORATORYCLIA [id number] [address] Lymphocytes/100 WBC (Bld) 15.6 % Normal [facility] Comment on above: Order Comment: Speci men Type: BLOOD SPECIMENOrdering Facility: [facility] Address: [address] [place] [address] Performed By: #### 5 7021-8 ####[facility]ORATORYCLIA [id number] [address] STATES [facility] MCH (RBC) [Entitic mass] 29.0 pg Normal 26.0-34.0 [facility] Comment on above: Order Comment: Speci men Type: BLOOD SPECIMENOrdering Facility: [facility] Address: [address] [place] [address] Performed By: #### 5 7021-8 ####[facility]ORATORYCLIA [id number] [address] [place] MCHC (RBC) [Mass/Vol] 31.5 g/dL Normal 30.5-36.0 [facility] Comment on above: Order Comment: Speci men Type: BLOOD SPECIMENOrdering Facility: [facility] Address: [address] [place] [address] Performed By: #### 5 7021-8 ####[facility]ORATORYCLIA [id number] [address] MCV (RBC) [Entitic vol] 92.3 fL Normal 80.0-100.0 [facility] Comment on above: Order Comment: Speci men Type: BLOOD SPECIMENOrdering Facility: [facility] Address: [address] [place] [address] Performed By: #### 5 7021-8 ####[facility]ORATORYCLIA [id number] [address] [place] Monocytes (Bld) [#/Vol] 0.44 10*3/uL Normal <0.87 [facility] Comment on above: Order Comment: Speci men Type: BLOOD SPECIMENOrdering Facility: [facility] Address: [address] [place] [address] Performed By: #### 5 7021-8 ####[facility]ORATORYCLIA [id number] [address] Monocytes/100 WBC (Bld) 5.2 % Normal [facility] Comment on above: Order Comment: Speci men Type: BLOOD SPECIMENOrdering Facility: [facility] Address: [address] [place] [address] Performed By: #### 5 7021-8 ####[facility]ORATORYCLIA [id number] [address] [place] Neutrophils (Bld) [#/Vol] 6.46 10*3/uL Normal 1.45-7.50 [facility] Comment on above: Order Comment: Speci men Type: BLOOD SPECIMENOrdering Facility: [facility] Address: [address] [address] Performed By: #### 5 7021-8 ####[facility]ORATORYCLIA [id number] [address] Neutrophils/100 WBC (Bld) 76.1 % Normal [facility] Comment on above: Order Comment: Speci men Type: BLOOD SPECIMENOrdering Facility: [facility] Address: [address] [place] [address] Performed By: #### 5 7021-8 ####[facility]ATORYCLIA [id number] [address] Nucleated RBC (Bld) [#/Vol] 10*3/uL Normal <0.01 [facility] Comment on above: Order Comment: Speci men Type: BLOOD SPECIMENOrdering Facility: [facility] Address: [address] [place] [address] Performed By: #### 5 7021-8 ####[facility]ORATORYCLIA [id number] [address] Nucleated RBC/100 WBC (Bld) [Ratio] 0.0 /100 WBC Normal [facility] Comment on above: Order Comment: Speci men Type: BLOOD SPECIMENOrdering Facility: [facility] Address: [address] [place] [address] Performed By: #### 5 7021-8 ####[facility]ORATORYCLIA [id number] [address] [place] Platelet mean volume (Bld) [Entitic vol] 9.5 fL Normal 9.0-12.7 [facility] Comment on above: Order Comment: Speci men Type: BLOOD SPECIMENOrdering Facility: [facility] Address: [address] [place] [address] Performed By: #### 5 7021-8 ####[facility]ORATORYCLIA [id number] [address] [place] Platelets (Bld) [#/Vol] 247 10*3/uL Normal 150-400 [facility] Comment on above: Order Comment: Speci men Type: BLOOD SPECIMENOrdering Facility: [facility] Address: [address] [place] [address] Performed By: #### 5 7021-8 ####[facility]ORATORYCLIA [id number] [place] [address] [place] [facility] RBC (Bld) [#/Vol] 3.10 10*6/uL Low 4.20-6.00 [facility] Comment on above: Order Comment: Speci men Type: BLOOD SPECIMENOrdering Facility: [facility] Address: [address] [place] [address] Performed By: #### 5 7021-8 ####[facility]ORATORYCLIA [id number] [address] [place] WBC (Bld) [#/Vol] 8.50 10*3/uL Normal 3.70-11.00 [facility] Comment on above: Order Comment: Speci men Type: BLOOD SPECIMENOrdering Facility: [facility] Address: [address] [place] [address] Performed By: #### 5 7021-8 ####[facility]ORATORYCLIA [id number] [address] [place] CONSULTon 08-14-2021 CONSULT Normal [facility] NURSING PROGon 08-14-2021 NURSING PROG Normal [facility] CBC W Auto Differential pane l (Bld)on 08-13-2021 Basophils (Bld) [#/Vol] 10*3/uL Normal <0.11 [facility] Comment on above: Order Comment: Speci men Type: BLOOD SPECIMENOrdering Facility: [facility] Address: [address] [place] [address] Performed By: #### 5 7021-8 ####[facility]ORATORYCLIA [id number] [address] [place] Basophils/100 WBC (Bld) 0.2 % Normal [facility] Comment on above: Order Comment: Speci men Type: BLOOD SPECIMENOrdering Facility: [facility] Address: [address] [place] [address] Performed By: #### 5 7021-8 ####[facility]ORATORYCLIA [id number] [address] Differential cell count method Nom (Bld) Auto Normal [facility] Comment on above: Order Comment: Speci men Type: BLOOD SPECIMENOrdering Facility: [facility] Address: [address] [place] [address] Performed By: #### 5 7021-8 ####[facility]ORATORYCLIA [id number] [address] Eosinophils (Bld) [#/Vol] 0.31 10*3/uL Normal <0.46 [facility] Comment on above: Order Comment: Speci men Type: BLOOD SPECIMENOrdering Facility: [facility] Address: [address] [place] [address] Performed By: #### 5 7021-8 ####[facility]ORATORYCLIA [id number] [address] Eosinophils/100 WBC (Bld) 3.7 % Normal [facility] Comment on above: Order Comment: Speci men Type: BLOOD SPECIMENOrdering Facility: [facility] Address: [address] [place] [address] Performed By: #### 5 7021-8 ####[facility]ORATORYCLIA [id number] [address] Erythrocyte distribution width (RBC) [Ratio] 16.6 % High 11.5-15.0 [facility] Comment on above: Order Comment: Speci men Type: BLOOD SPECIMENOrdering Facility: [facility] Address: [address] [place] [address] Performed By: #### 5 7021-8 ####[facility]ORATORYCLIA [id number] [address] [place] Hematocrit (Bld) [Volume fraction] 27.5 % Low 39.0-51.0 [facility] Comment on above: Order Comment: Speci men Type: BLOOD SPECIMENOrdering Facility: [facility] Address: [address] [place] [address] Performed By: #### 5 7021-8 ####[facility]ORATORYCLIA [id number] [address] Hemoglobin (Bld) [Mass/Vol] 8.4 g/dL Low 13.0-17.0 [facility] Comment on above: Order Comment: Speci men Type: BLOOD SPECIMENOrdering Facility: [facility] Address: [address] [place] [address] Performed By: #### 5 7021-8 ####[facility]ORATORYCLIA [id number] [address] IMMATURE GRAN % 0.5 % Normal [facility] Comment on above: Order Comment: Speci men Type: BLOOD SPECIMENOrdering Facility: [facility] Address: [address] [place] [address] Performed By: #### 5 7021-8 ####[facility]ATORYCLIA [id number] [address] IMMATURE GRAN ABS 0.04 k/uL Normal <0.10 [facility] Comment on above: Order Comment: Speci men Type: BLOOD SPECIMENOrdering Facility: [facility] Address: [address] [place] [address] Performed By: #### 5 7021-8 ####[facility]ORATORYCLIA [id number] [address] Lymphocytes (Bld) [#/Vol] 1.55 10*3/uL Normal 1.00-4.00 [facility] Comment on above: Order Comment: Speci men Type: BLOOD SPECIMENOrdering Facility: [facility] Address: [address] [place] [address] Performed By: #### 5 7021-8 ####[facility]ORATORYCLIA [id number] [address] Lymphocytes/100 WBC (Bld) 18.7 % Normal [facility] Comment on above: Order Comment: Speci men Type: BLOOD SPECIMENOrdering Facility: [facility] Address: [address] [place] [address] Performed By: #### 5 7021-8 ####[facility]ORATORYCLIA [id number] [address] MCH (RBC) [Entitic mass] 28.9 pg Normal 26.0-34.0 [facility] Comment on above: Order Comment: Speci men Type: BLOOD SPECIMENOrdering Facility: [facility] Address: [address] [place] [address] Performed By: #### 5 7021-8 ####[facility]ATORYCLIA [id number] [address] MCHC (RBC) [Mass/Vol] 30.5 g/dL Normal 30.5-36.0 [facility] Comment on above: Order Comment: Speci men Type: BLOOD SPECIMENOrdering Facility: [facility] Address: [address] [place] [address] Performed By: #### 5 7021-8 ####[facility]ORATORYCLIA [id number] [address] MCV (RBC) [Entitic vol] 94.5 fL Normal 80.0-100.0 [facility] Comment on above: Order Comment: Speci men Type: BLOOD SPECIMENOrdering Facility: [facility] Address: [address] [place] [address] Performed By: #### 5 7021-8 ####[facility]ORATORYCLIA [id number] [address] Monocytes (Bld) [#/Vol] 0.47 10*3/uL Normal <0.87 [facility] Comment on above: Order Comment: Speci men Type: BLOOD SPECIMENOrdering Facility: [facility] Address: [address] [place] [address] Performed By: #### 5 7021-8 ####[facility]ATORYCLIA [id number] [address] Monocytes/100 WBC (Bld) 5.7 % Normal [facility] Comment on above: Order Comment: Speci men Type: BLOOD SPECIMENOrdering Facility: [facility] Address: [address] [place] [address] Performed By: #### 5 7021-8 ####[facility]ATORYCLIA [id number] [address] [place] Neutrophils (Bld) [#/Vol] 5.92 10*3/uL Normal 1.45-7.50 [facility] Comment on above: Order Comment: Speci men Type: BLOOD SPECIMENOrdering Facility: [facility] Address: [address] [place] [address] Performed By: #### 5 7021-8 ####[facility]ATORYCLIA [id number] [address] Neutrophils/100 WBC (Bld) 71.2 % Normal [facility] Comment on above: Order Comment: Speci men Type: BLOOD SPECIMENOrdering Facility: [facility] Address: [address] [place] [address] Performed By: #### 5 7021-8 ####[facility]ORYCLIA [id number] [address] [place] Nucleated RBC (Bld) [#/Vol] 10*3/uL Normal <0.01 [facility] Comment on above: Order Comment: Speci men Type: BLOOD SPECIMENOrdering Facility: [facility] Address: [address] [place] [address] Performed By: #### 5 7021-8 ####[facility]ATORYCLIA [id number] [address] [place] Nucleated RBC/100 WBC (Bld) [Ratio] 0.0 /100 WBC Normal [facility] Comment on above: Order Comment: Speci men Type: BLOOD SPECIMENOrdering Facility: [facility] Address: [address] [place] [address] Performed By: #### 5 7021-8 ####[facility]ATORYCLIA [id number] [address] [place] Platelet mean volume (Bld) [Entitic vol] 9.9 fL Normal 9.0-12.7 [facility] Comment on above: Order Comment: Speci men Type: BLOOD SPECIMENOrdering Facility: [facility] Address: [address] [place] [address] Performed By: #### 5 7021-8 ####[facility]ORATORYCLIA [id number] [address] [place] Platelets (Bld) [#/Vol] 203 10*3/uL Normal 150-400 [facility] Comment on above: Order Comment: Speci men Type: BLOOD SPECIMENOrdering Facility: [facility] Address: [address] [place] [address] Performed By: #### 5 7021-8 ####[facility]ORATORYCLIA [id number] [address] [place] RBC (Bld) [#/Vol] 2.91 10*6/uL Low 4.20-6.00 [facility] Comment on above: Order Comment: Speci men Type: BLOOD SPECIMENOrdering Facility: [facility] Address: [address] [place], [place] [address] Performed By: #### 5 7021-8 ####[facility]ORATORYCLIA [id number] [address] [place] WBC (Bld) [#/Vol] 8.31 10*3/uL Normal 3.70-11.00 [facility] Comment on above: Order Comment: Speci men Type: BLOOD SPECIMENOrdering Facility: [facility] Address: [address] [place] [address] Performed By: #### 5 7021-8 ####[facility]ORATORYCLIA [id number] [address] OF [facility] aPTT PPPon 08-13-2021 aPTT Coag (PPP) [Time] 69.7 s High 23.0-32.[address] [facility] Comment on above: Order Comment: Speci men Type: BLOOD SPECIMENOrdering Facility: [facility] Address: [address] [place], [place] [address] Performed By: #### 1 4979-9 ####[facility]ATORYCLIA [id number] [address] STATES OF [facility] aPTT Coag (PPP) [Time] 70.6 s High 23.0-32.[address] [facility] Comment on above: Order Comment: Speci men Type: BLOOD SPECIMENOrdering Facility: [facility] Address: [address] [place], [place] [address] Performed By: #### 1 4979-9 ####[facility]ATORYCLIA [id number] [address] [place] ALLIED HEALTHon 08-12-2021 ALLIED HEALTH Normal [facility] ALLIED HEALTH Normal [facility] Basic metabolic 2000 panelon 08-12-2021 Anion gap [Moles/Vol] 7 mmol/L Low 9-18 [facility] Comment on above: Order Comment: Speci men Type: BLOOD SPECIMENOrdering Facility: [facility] Address: [address] [place], [place] [address] Performed By: #### 2 4321-2, , 2776-05 ####[facility]ORATORYCLIA [id number] [address] STATES OF [facility] Calcium [Mass/Vol] 8.8 mg/dL Normal 8.5-10.2 [facility] Comment on above: Order Comment: Speci men Type: BLOOD SPECIMENOrdering Facility: [facility] Address: [address] [place], [place] [address] Performed By: #### 2 4321-2, , 2776-05 ####[facility]ORATORYCLIA [id number] [place] [address] [place] Chloride [Moles/Vol] 96 mmol/L Low 97-105 [facility] Comment on above: Order Comment: Speci men Type: BLOOD SPECIMENOrdering Facility: [facility] Address: [address] [place] [address] Performed By: #### 2 4321-2, , 2776-05 ####[facility]ATORYCLIA [id number] [address] STATES OF [facility] CO2 [Moles/Vol] 32 mmol/L High 22-30 [facility] Comment on above: Order Comment: Speci men Type: BLOOD SPECIMENOrdering Facility: [facility] Address: [address] [place] [address] Performed By: #### 2 4321-2, , 2776-05 ####[facility]ATORYCLIA [id number] [address] Creatinine [Mass/Vol] 0.52 mg/dL Low 0.73-1.22 [facility] Comment on above: Order Comment: Speci men Type: BLOOD SPECIMENOrdering Facility: [facility] Address: [address] [place] [address] Performed By: #### 2 4321-2, , 2776-05 ####[facility]ORATORYCLIA [id number] [address] ESTIMATED GLOMERULAR FILTRATION RATE 109 mL/min/1.73m??? Normal >=60 [facility] Comment on above: Order Comment: Speci men Type: BLOOD SPECIMENOrdering Facility: [facility] Address: [address] [place] [address] Result Comment: Luzmaria mated Glomerular Filtration Rate [...] Performed By: #### 2 4321-2, , 2776-05 ####[facility]ORATORYCLIA [id number] [place] [address] [place] Glucose [Mass/Vol] 119 mg/dL High 74-99 [facility] Comment on above: Order Comment: Shira feldman Type: BLOOD SPECIMENOrdering Facility: [facility] Address: [address] [place], [place] [address] Result Comment: The [employer] (ADA) [...] Performed By: #### 2 4321-2, , 2776-05 ####[facility]ORATORYCLIA [id number] [place] [address] [place] Potassium [Moles/Vol] 3.7 mmol/L Normal 3.7-5.1 [facility] Comment on above: Order Comment: Shira feldman Type: BLOOD SPECIMENOrdering Facility: [facility] Address: [address] [place] [address] Performed By: #### 2 4321-2, , 2776-05 ####[facility]ORATORYCLIA [id number] [place] [address] [place] Sodium [Moles/Vol] 135 mmol/L Low 136-144 [facility] Comment on above: Order Comment: Shira feldman Type: BLOOD SPECIMENOrdering Facility: [facility] Address: [address] [place] [address] Performed By: #### 2 4321-2, 24562-4, 2771 ####[facility]ORATORYCLIA [id number] [address] STATES [facility] Urea nitrogen [Mass/Vol] 20 mg/dL Normal 9-24 [facility] Comment on above: Order Comment: Speci men Type: BLOOD SPECIMENOrdering Facility: [facility] Address: [address] [place] [address] Performed By: #### 2 4321-2, , 27711-04 ####[facility]ORATORYCLIA [id number] [address] CASE MANAGEMon 08-12-2021 CASE MANAGEM Normal [facility] CBC W Auto Differential pane l (Bld)on 08-12-2021 Basophils (Bld) [#/Vol] 0.04 10*3/uL Normal <0.11 [facility] Comment on above: Order Comment: Speci men Type: BLOOD SPECIMENOrdering Facility: [facility] Address: [address] [place] [address] Performed By: #### 5 7021-8 ####[facility]ORATORYCLIA [id number] [address] [place] Basophils/100 WBC (Bld) 0.5 % Normal [facility] Comment on above: Order Comment: Speci men Type: BLOOD SPECIMENOrdering Facility: [facility] Address: [address] [place] [address] Performed By: #### 5 7021-8 ####[facility]ORATORYCLIA [id number] [address] STATES [facility] Differential cell count method Nom (Bld) Auto Normal [facility] Comment on above: Order Comment: Speci men Type: BLOOD SPECIMENOrdering Facility: [facility] Address: [address] [place] [address] Performed By: #### 5 7021-8 ####[facility]ORATORYCLIA [id number] [address] [place] Eosinophils (Bld) [#/Vol] 0.19 10*3/uL Normal <0.46 [facility] Comment on above: Order Comment: Speci men Type: BLOOD SPECIMENOrdering Facility: [facility] Address: [address] [place] [address] Performed By: #### 5 7021-8 ####[facility]ORATORYCLIA [id number] [address] [place] Eosinophils/100 WBC (Bld) 2.3 % Normal [facility] Comment on above: Order Comment: Speci men Type: BLOOD SPECIMENOrdering Facility: [facility] Address: [address] [place] [address] Performed By: #### 5 7021-8 ####[facility]ORATORYCLIA [id number] [address] STATES [facility] Erythrocyte distribution width (RBC) [Ratio] 17.1 % High 11.5-15.0 [facility] Comment on above: Order Comment: Speci men Type: BLOOD SPECIMENOrdering Facility: [facility] Address: [address] [place] [address] Performed By: #### 5 7021-8 ####[facility]ORATORYCLIA [id number] [address] [place] Hematocrit (Bld) [Volume fraction] 25.3 % Low 39.0-51.0 [facility] Comment on above: Order Comment: Speci men Type: BLOOD SPECIMENOrdering Facility: [facility] Address: [address] [place] [address] Performed By: #### 5 7021-8 ####[facility]ORATORYCLIA [id number] [address] [place] Hemoglobin (Bld) [Mass/Vol] 7.9 g/dL Low 13.0-17.0 [facility] Comment on above: Order Comment: Speci men Type: BLOOD SPECIMENOrdering Facility: [facility] Address: [address] [place] [address] Performed By: #### 5 7021-8 ####[facility]ATORYCLIA [id number] [address] IMMATURE GRAN % 0.5 % Normal [facility] Comment on above: Order Comment: Speci men Type: BLOOD SPECIMENOrdering Facility: [facility] Address: [address] [place] [address] Performed By: #### 5 7021-8 ####[facility]ATORYCLIA [id number] [address] IMMATURE GRAN ABS 0.04 k/uL Normal <0.10 [facility] Comment on above: Order Comment: Speci men Type: BLOOD SPECIMENOrdering Facility: [facility] Address: [address] [place] [address] Performed By: #### 5 7021-8 ####[facility]ORATORYCLIA [id number] [address] Lymphocytes (Bld) [#/Vol] 1.69 10*3/uL Normal 1.00-4.00 [facility] Comment on above: Order Comment: Speci men Type: BLOOD SPECIMENOrdering Facility: [facility] Address: [address] [place] [address] Performed By: #### 5 7021-8 ####[facility] LABORATORYCLIA [id number] [address] Lymphocytes/100 WBC (Bld) 20.1 % Normal [facility] Comment on above: Order Comment: Speci men Type: BLOOD SPECIMENOrdering Facility: [facility] Address: [address] [place] [address] Performed By: #### 5 7021-8 ####[facility]ATORYCLIA [id number] [address] [place] MCH (RBC) [Entitic mass] 28.5 pg Normal 26.0-34.0 [facility] Comment on above: Order Comment: Speci men Type: BLOOD SPECIMENOrdering Facility: [facility] Address: [address] [place] [address] Performed By: #### 5 7021-8 ####[facility] LABORATORYCLIA [id number] [address] [place] MCHC (RBC) [Mass/Vol] 31.2 g/dL Normal 30.5-36.0 [facility] Comment on above: Order Comment: Speci men Type: BLOOD SPECIMENOrdering Facility: [facility] Address: [address] [place] [address] Performed By: #### 5 7021-8 ####[facility] LABORATORYCLIA [id number] [address] [place] MCV (RBC) [Entitic vol] 91.3 fL Normal 80.0-100.0 [facility] Comment on above: Order Comment: Speci men Type: BLOOD SPECIMENOrdering Facility: [facility] Address: [address] [place] [address] Performed By: #### 5 7021-8 ####[facility] LABORATORYCLIA [id number] [address] [place] Monocytes (Bld) [#/Vol] 0.53 10*3/uL Normal <0.87 [facility] Comment on above: Order Comment: Speci men Type: BLOOD SPECIMENOrdering Facility: [facility] Address: [address] [place] [address] Performed By: #### 5 7021-8 ####[facility] LABORATORYCLIA [id number] [address] Monocytes/100 WBC (Bld) 6.3 % Normal [facility] Comment on above: Order Comment: Speci men Type: BLOOD SPECIMENOrdering Facility: [facility] Address: [address] [place] [address] Performed By: #### 5 7021-8 ####[facility] LABORATORYCLIA [id number] [address] [place] Neutrophils (Bld) [#/Vol] 5.90 10*3/uL Normal 1.45-7.50 [facility] Comment on above: Order Comment: Speci men Type: BLOOD SPECIMENOrdering Facility: [facility] Address: [address] [place] [address] Performed By: #### 5 7021-8 ####[facility] LABORATORYCLIA [id number] [address] [place] Neutrophils/100 WBC (Bld) 70.3 % Normal [facility] Comment on above: Order Comment: Speci men Type: BLOOD SPECIMENOrdering Facility: [facility] Address: [address] [place] [address] Performed By: #### 5 7021-8 ####[facility] LABORATORYCLIA [id number] [address] [place] Nucleated RBC (Bld) [#/Vol] 10*3/uL Normal <0.01 [facility] Comment on above: Order Comment: Speci men Type: BLOOD SPECIMENOrdering Facility: [facility] Address: [address] [place] [address] Performed By: #### 5 7021-8 ####[facility] LABORATORYCLIA [id number] [address] [place] Nucleated RBC/100 WBC (Bld) [Ratio] 0.0 /100 WBC Normal [facility] Comment on above: Order Comment: Speci men Type: BLOOD SPECIMENOrdering Facility: [facility] Address: [address] [place] [address] Performed By: #### 5 7021-8 ####[facility]ORATORYCLIA [id number] [address] [place] Platelet mean volume (Bld) [Entitic vol] 9.8 fL Normal 9.0-12.7 [facility] Comment on above: Order Comment: Speci men Type: BLOOD SPECIMENOrdering Facility: [facility] Address: [address] [place] [address] Performed By: #### 5 7021-8 ####[facility]ORATORYCLIA [id number] [address] Platelets (Bld) [#/Vol] 164 10*3/uL Normal 150-400 [facility] Comment on above: Order Comment: Speci men Type: BLOOD SPECIMENOrdering Facility: [facility] Address: [address] [place] [address] Performed By: #### 5 7021-8 ####[facility]ORATORYCLIA [id number] [address] [place] RBC (Bld) [#/Vol] 2.77 10*6/uL Low 4.20-6.00 [facility] Comment on above: Order Comment: Speci men Type: BLOOD SPECIMENOrdering Facility: [facility] Address: [address] [place] [address] Performed By: #### 5 7021-8 ####[facility]ORATORYCLIA [id number] [address] WBC (Bld) [#/Vol] 8.39 10*3/uL Normal 3.70-11.00 [facility] Comment on above: Order Comment: Speci men Type: BLOOD SPECIMENOrdering Facility: [facility] Address: [address] [place] [address] Performed By: #### 5 7021-8 ####[facility] LABORATORYCLIA [id number] [address] BRAIN WO IVCONon 08-13-19 CT BRAIN WO IVCON Normal [facility] CT BRAIN WO IVCON Normal [facility] Magnesium SerPl-mCncon 08-12 Magnesium [Mass/Vol] 2.0 mg/dL Normal 1.7-2.3 [facility] Comment on above: Order Comment: Speci men Type: BLOOD SPECIMENOrdering Facility: [facility] Address: [address] [place] [address] Performed By: #### 2 4321-2, 63459-1, 2777-1 ####[facility]ORATORYCLIA [id number] [address] Phosphate SerPl-mCncon 08-12 Phosphate [Mass/Vol] 2.9 mg/dL Normal 2.7-4.8 [facility] Comment on above: Order Comment: Speci men Type: BLOOD SPECIMENOrdering Facility: [facility] Address: [address] [place] [address] Performed By: #### 2 4321-2, 00175-9, 2777-1 ####[facility]ORATORYCLIA [id number] [address] THERAPY NTon 08-12-2021 THERAPY NT Normal [facility] THERAPY NT Normal [facility] aPTT PPPon 08-12-2021 aPTT Coag (PPP) [Time] 94.2 s High 23.0-32.[address] [facility] Comment on above: Order Comment: Speci men Type: BLOOD SPECIMENOrdering Facility: [facility] Address: [address] [place] [address] Performed By: #### 1 4979-9 ####[facility]ORATORYCLIA [id number] [address] aPTT Coag (PPP) [Time] 84.4 s High 23.0-32.[address] [facility] Comment on above: Order Comment: Speci men Type: BLOOD SPECIMENOrdering Facility: [facility] Address: [address] [place] [address] Performed By: #### 1 4979-9 ####[facility]ORATORYCLIA [id number] [address] aPTT Coag (PPP) [Time] 71.3 s High 23.0-32.[address] [facility] Comment on above: Order Comment: Speci men Type: BLOOD SPECIMENOrdering Facility: [facility] Address: [address] [place] [address] Performed By: #### 1 4979-9 ####[facility]ORATORYCLIA [id number] [address] [place] ALLIED HEALTHon 08-11-2021 ALLIED HEALTH Normal [facility] CBC W Auto Differential pane l (Bld)on 08-11-2021 Basophils (Bld) [#/Vol] 10*3/uL Normal <0.11 [facility] Comment on above: Order Comment: Speci men Type: BLOOD SPECIMENOrdering Facility: [facility] Address: [address] [place] [address] Performed By: #### 5 7021-8 ####[facility]ORATORYCLIA [id number] [address] Basophils/100 WBC (Bld) 0.2 % Normal [facility] Comment on above: Order Comment: Speci men Type: BLOOD SPECIMENOrdering Facility: [facility] Address: [address] [place] [address] Performed By: #### 5 7021-8 ####[facility]ORATORYCLIA [id number] [address] Differential cell count method Nom (Bld) Auto Normal [facility] Comment on above: Order Comment: Speci men Type: BLOOD SPECIMENOrdering Facility: [facility] Address: [address] [place] [address] Performed By: #### 5 7021-8 ####[facility]ORATORYCLIA [id number] [address] [place] Eosinophils (Bld) [#/Vol] 0.16 10*3/uL Normal <0.46 [facility] Comment on above: Order Comment: Speci men Type: BLOOD SPECIMENOrdering Facility: [facility] Address: [address] [place] [address] Performed By: #### 5 7021-8 ####[facility]ORATORYCLIA [id number] [address] [place] Eosinophils/100 WBC (Bld) 1.8 % Normal [facility] Comment on above: Order Comment: Speci men Type: BLOOD SPECIMENOrdering Facility: [facility] Address: [address] [place] [address] Performed By: #### 5 7021-8 ####[facility]ORATORYCLIA [id number] [address] Erythrocyte distribution width (RBC) [Ratio] 17.3 % High 11.5-15.0 [facility] Comment on above: Order Comment: Speci men Type: BLOOD SPECIMENOrdering Facility: [facility] Address: [address] [place] [address] Performed By: #### 5 7021-8 ####[facility]ORATORYCLIA [id number] [address] Hematocrit (Bld) [Volume fraction] 26.6 % Low 39.0-51.0 [facility] Comment on above: Order Comment: Speci men Type: BLOOD SPECIMENOrdering Facility: [facility] Address: [address] [place] [address] Performed By: #### 5 7021-8 ####[facility]ORATORYCLIA [id number] [address] Hemoglobin (Bld) [Mass/Vol] 8.2 g/dL Low 13.0-17.0 [facility] Comment on above: Order Comment: Speci men Type: BLOOD SPECIMENOrdering Facility: [facility] Address: [address] [place] [address] Performed By: #### 5 7021-8 ####[facility]ORATORYCLIA [id number] [address] IMMATURE GRAN % 0.6 % Normal [facility] Comment on above: Order Comment: Speci men Type: BLOOD SPECIMENOrdering Facility: [facility] Address: [address] [place] [address] Performed By: #### 5 7021-8 ####[facility]ORATORYCLIA [id number] [address] IMMATURE GRAN ABS 0.05 k/uL Normal <0.10 [facility] Comment on above: Order Comment: Speci men Type: BLOOD SPECIMENOrdering Facility: [facility] Address: [address] [place] [address] Performed By: #### 5 7021-8 ####[facility]ORATORYCLIA [id number] [address] [place] Lymphocytes (Bld) [#/Vol] 1.40 10*3/uL Normal 1.00-4.00 [facility] Comment on above: Order Comment: Speci men Type: BLOOD SPECIMENOrdering Facility: [facility] Address: [address] [place] [address] Performed By: #### 5 7021-8 ####[facility]ORATORYCLIA [id number] [address] Lymphocytes/100 WBC (Bld) 15.8 % Normal [facility] Comment on above: Order Comment: Speci men Type: BLOOD SPECIMENOrdering Facility: [facility] Address: [address] [place] [address] Performed By: #### 5 7021-8 ####[facility]ORATORYCLIA [id number] [address] MCH (RBC) [Entitic mass] 28.4 pg Normal 26.0-34.0 [facility] Comment on above: Order Comment: Speci men Type: BLOOD SPECIMENOrdering Facility: [facility] Address: [address] [place] [address] Performed By: #### 5 7021-8 ####[facility]ORATORYCLIA [id number] [address] MCHC (RBC) [Mass/Vol] 30.8 g/dL Normal 30.5-36.0 [facility] Comment on above: Order Comment: Speci men Type: BLOOD SPECIMENOrdering Facility: [facility] Address: [address] [address] Performed By: #### 5 7021-8 ####[facility]ORATORYCLIA [id number] [address] [place] MCV (RBC) [Entitic vol] 92.0 fL Normal 80.0-100.0 [facility] Comment on above: Order Comment: Speci men Type: BLOOD SPECIMENOrdering Facility: [facility] Address: [address] [place] [address] Performed By: #### 5 7021-8 ####[facility]ORATORYCLIA [id number] [address] [place] Monocytes (Bld) [#/Vol] 0.61 10*3/uL Normal <0.87 [facility] Comment on above: Order Comment: Speci men Type: BLOOD SPECIMENOrdering Facility: [facility] Address: [address] [place] [address] Performed By: #### 5 7021-8 ####[facility]ORATORYCLIA [id number] [address] STATES [facility] Monocytes/100 WBC (Bld) 6.9 % Normal [facility] Comment on above: Order Comment: Speci men Type: BLOOD SPECIMENOrdering Facility: [facility] Address: [address] [place] [address] Performed By: #### 5 7021-8 ####[facility]ORATORYCLIA [id number] [address] [place] Neutrophils (Bld) [#/Vol] 6.62 10*3/uL Normal 1.45-7.50 [facility] Comment on above: Order Comment: Speci men Type: BLOOD SPECIMENOrdering Facility: [facility] Address: [address] [place] [address] Performed By: #### 5 7021-8 ####[facility]ORATORYCLIA [id number] [address] [place] Neutrophils/100 WBC (Bld) 74.7 % Normal [facility] Comment on above: Order Comment: Speci men Type: BLOOD SPECIMENOrdering Facility: [facility] Address: [address] [address] Performed By: #### 5 7021-8 ####[facility]ORATORYCLIA [id number] [address] [place] Nucleated RBC (Bld) [#/Vol] 10*3/uL Normal <0.01 [facility] Comment on above: Order Comment: Speci men Type: BLOOD SPECIMENOrdering Facility: [facility] Address: [address] [place] [address] Performed By: #### 5 7021-8 ####[facility]ORATORYCLIA [id number] [address] [place] Nucleated RBC/100 WBC (Bld) [Ratio] 0.0 /100 WBC Normal [facility] Comment on above: Order Comment: Speci men Type: BLOOD SPECIMENOrdering Facility: [facility] Address: [address] [place] [address] Performed By: #### 5 7021-8 ####[facility]ORATORYCLIA [id number] [address] [place] Platelet mean volume (Bld) [Entitic vol] 9.8 fL Normal 9.0-12.7 [facility] Comment on above: Order Comment: Speci men Type: BLOOD SPECIMENOrdering Facility: [facility] Address: [address] [place], [place] [address] Performed By: #### 5 7021-8 ####[facility]ORATORYCLIA [id number] [address] [place] Platelets (Bld) [#/Vol] 157 10*3/uL Normal 150-400 [facility] Comment on above: Order Comment: Speci men Type: BLOOD SPECIMENOrdering Facility: [facility] Address: [address] [place] [address] Performed By: #### 5 7021-8 ####[facility]ORATORYCLIA [id number] [address] OF [facility] RBC (Bld) [#/Vol] 2.89 10*6/uL Low 4.20-6.00 [facility] Comment on above: Order Comment: Speci men Type: BLOOD SPECIMENOrdering Facility: [facility] Address: [address] [place] [address] Performed By: #### 5 7021-8 ####[facility]ORATORYCLIA [id number] [address] OF [facility] WBC (Bld) [#/Vol] 8.86 10*3/uL Normal 3.70-11.00 [facility] Comment on above: Order Comment: Speci men Type: BLOOD SPECIMENOrdering Facility: [facility] Address: [address] [place] [address] Performed By: #### 5 7021-8 ####[facility]ORATORYCLIA [id number] [address] CBC panel Auto (Bld)on 08-11 Erythrocyte distribution width (RBC) [Ratio] 17.2 % High 11.5-15.0 [facility] Comment on above: Order Comment: Speci men Type: BLOOD SPECIMENOrdering Facility: [facility] Address: [address] [place] [address] Performed By: #### 5 8410-2 ####[facility]ORATORYCLIA [id number] [address] Hematocrit (Bld) [Volume fraction] 27.0 % Low 39.0-51.0 [facility] Comment on above: Order Comment: Speci men Type: BLOOD SPECIMENOrdering Facility: [facility] Address: [address] [place] [address] Performed By: #### 5 8410-2 ####[facility]ORATORYCLIA [id number] [address] OF [facility] Hemoglobin (Bld) [Mass/Vol] 8.3 g/dL Low 13.0-17.0 [facility] Comment on above: Order Comment: Speci men Type: BLOOD SPECIMENOrdering Facility: [facility] Address: [address] [place] [address] Performed By: #### 5 8410-2 ####[facility]ORATORYCLIA [id number] [address] MCH (RBC) [Entitic mass] 28.7 pg Normal 26.0-34.0 [facility] Comment on above: Order Comment: Speci men Type: BLOOD SPECIMENOrdering Facility: [facility] Address: [address] [place] [address] Performed By: #### 5 8410-2 ####[facility]ORATORYCLIA [id number] [address] MCHC (RBC) [Mass/Vol] 30.7 g/dL Normal 30.5-36.0 [facility] Comment on above: Order Comment: Speci men Type: BLOOD SPECIMENOrdering Facility: [facility] Address: [address] [place] [address] Performed By: #### 5 8410-2 ####[facility]ORATORYCLIA [id number] [address] MCV (RBC) [Entitic vol] 93.4 fL Normal 80.0-100.0 [facility] Comment on above: Order Comment: Speci men Type: BLOOD SPECIMENOrdering Facility: [facility] Address: [address] [place] [address] Performed By: #### 5 8410-2 ####[facility]ORATORYCLIA [id number] [address] Nucleated RBC (Bld) [#/Vol] 10*3/uL Normal <0.01 [facility] Comment on above: Order Comment: Speci men Type: BLOOD SPECIMENOrdering Facility: [facility] Address: [address] [place] [address] Performed By: #### 5 8410-2 ####[facility]ORATORYCLIA [id number] [address] Platelet mean volume (Bld) [Entitic vol] 9.8 fL Normal 9.0-12.7 [facility] Comment on above: Order Comment: Speci men Type: BLOOD SPECIMENOrdering Facility: [facility] Address: [address] [place] [address] Performed By: #### 5 8410-2 ####[facility]ORATORYCLIA [id number] [address] [place] Platelets (Bld) [#/Vol] 169 10*3/uL Normal 150-400 [facility] Comment on above: Order Comment: Speci men Type: BLOOD SPECIMENOrdering Facility: [facility] Address: [address] [place] [address] Performed By: #### 5 8410-2 ####[facility]ORATORYCLIA [id number] [address] STATES OF [facility] RBC (Bld) [#/Vol] 2.89 10*6/uL Low 4.20-6.00 [facility] Comment on above: Order Comment: Speci men Type: BLOOD SPECIMENOrdering Facility: [facility] Address: [address] [place] [address] Performed By: #### 5 8410-2 ####[facility]ORATORYCLIA [id number] [address] [place] WBC (Bld) [#/Vol] 9.03 10*3/uL Normal 3.70-11.00 [facility] Comment on above: Order Comment: Speci men Type: BLOOD SPECIMENOrdering Facility: [facility] Address: [address] [place] [address] Performed By: #### 5 8410-2 ####[facility] LABORATORYCLIA [id number] [address] OF [facility] CT BRAIN WO IVCONon 08-12-19 CT BRAIN WO IVCON Normal [facility] PT panel Coag (PPP)on 2021 INR Coag (PPP) [Relative time] 1.0 {INR} Normal 0.9-1.3 [facility] Comment on above: Order Comment: Shira feldman Type: BLOOD SPECIMENOrdering Facility: [facility] Address: [address] [id number] Result Comment: Yris min K Antagonist (VKA) [...] al. Chest 2012, 141:7S-47SNishimpatricia RA, et al. [facility] 2017, 70: 252-289 Performed By: #### 1 4979-9, 87347-5 ####[facility] LABORATORYCLIA [id number] [place] [address] [place] PT Coag (PPP) [Time] 11.4 s Normal 9.7-13.0 [facility] Comment on above: Order Comment: Shira feldman Type: BLOOD SPECIMENOrdering Facility: [facility] Address: [address] [place] [address] Performed By: #### 1 4979-9, 39671-5 ####[facility] LABORATORYCLIA [id number] [place] [address] [place] THERAPY NTon 08-11-2021 THERAPY NT Normal [facility] US DVT LOWER BILon 2 US DVT LOWER RAINER Normal [facility] US DVT UPPER BILon 2 US DVT UPPER RAINER Normal [facility] aPTT PPPon 08-11-2021 aPTT Coag (PPP) [Time] 26.9 s Normal 23.0-32.[address] [facility] Comment on above: Order Comment: Speci men Type: BLOOD SPECIMENOrdering Facility: [facility] Address: [address] [place] [address] Performed By: #### 1 4979-9, 09412-1 ####[facility] LABORATORYCLIA [id number] [place] [address] [place] Basic metabolic 2000 panelon 08-10-2021 Anion gap [Moles/Vol] 11 mmol/L Normal 9-18 [facility] Comment on above: Order Comment: Speci men Type: BLOOD SPECIMENOrdering Facility: [facility] Address: [address] [place] [address] Performed By: #### 2 4321-2 ####[facility] LABORATORYCLIA [id number] [place] [address] [place] Calcium [Mass/Vol] 8.7 mg/dL Normal 8.5-10.2 [facility] Comment on above: Order Comment: Speci men Type: BLOOD SPECIMENOrdering Facility: [facility] Address: [address] [place] [address] Performed By: #### 2 4321-2 ####[facility] LABORATORYCLIA [id number] [place] [address] [place] Chloride [Moles/Vol] 98 mmol/L Normal 97-105 [facility] Comment on above: Order Comment: Speci men Type: BLOOD SPECIMENOrdering Facility: [facility] Address: [address] [place] [address] Performed By: #### 2 4321-2 ####[facility] LABORATORYCLIA [id number] [place] [address] [place] CO2 [Moles/Vol] 28 mmol/L Normal 22-30 [facility] Comment on above: Order Comment: Speci men Type: BLOOD SPECIMENOrdering Facility: [facility] Address: [address] [place] [address] Performed By: #### 2 4321-2 ####[facility] LABORATORYCLIA [id number] [address] STATES OF [facility] Creatinine [Mass/Vol] 0.59 mg/dL Low 0.73-1.22 [facility] Comment on above: Order Comment: Shira feldman Type: BLOOD SPECIMENOrdering Facility: [facility] Address: [address] [place] [address] Performed By: #### 2 4321-2 ####[facility] LABORATORYCLIA [id number] [address] ESTIMATED GLOMERULAR FILTRATION RATE 105 mL/min/1.73m??? Normal >=60 [facility] Comment on above: Order Comment: Shira feldman Type: BLOOD SPECIMENOrdering Facility: [facility] Address: [address] [place] [address] Result Comment: Luzmaria mated Glomerular Filtration Rate [...] actual GFR. Performed By: #### 2 4321-2 ####[facility] LABORATORYCLIA [id number] [address] STATES OF [facility] Glucose [Mass/Vol] 118 mg/dL High 74-99 [facility] Comment on above: Order Comment: Shira francia Type: BLOOD SPECIMENOrdering Facility: [facility] Address: [address] [place] [address] Result Comment: The [employer] (ADA) [...] 2016.39(Suppl 1). Performed By: #### 2 4321-2 ####[facility] LABORATORYCLIA [id number] [place] [address] [place] Potassium [Moles/Vol] 3.7 mmol/L Normal 3.7-5.1 [facility] Comment on above: Order Comment: Speci men Type: BLOOD SPECIMENOrdering Facility: [facility] Address: [address] [place] [address] Performed By: #### 2 4321-2 ####[facility] LABORATORYCLIA [id number] [place] [address] [place] Sodium [Moles/Vol] 137 mmol/L Normal 136-144 [facility] Comment on above: Order Comment: Speci men Type: BLOOD SPECIMENOrdering Facility: [facility] Address: [address] [place] [address] Performed By: #### 2 4321-2 ####[facility] LABORATORYCLIA [id number] [place] [address] [place] Urea nitrogen [Mass/Vol] 23 mg/dL Normal 9-24 [facility] Comment on above: Order Comment: Speci men Type: BLOOD SPECIMENOrdering Facility: [facility] Address: [address] [place] [address] Performed By: #### 2 4321-2 ####[facility] LABORATORYCLIA [id number] [place] [address] [place] Anion gap [Moles/Vol] 17 mmol/L Normal 9-18 [facility] [facility] Comment on above: Order Comment: Speci men Type: BLOOD SPECIMENOrdering Facility: [facility] Address: [address] [place] [address] Performed By: #### 1 9123-9, 2777-1, 64655-5 ####[facility] LABORATORYCLIA [id number] [place] [address] [place] Calcium [Mass/Vol] 7.7 mg/dL Low 8.5-10.2 [facility] Comment on above: Order Comment: Speci men Type: BLOOD SPECIMENOrdering Facility: [facility] Address: [address] [place] [address] Performed By: #### 1 9123-9, 27711-04, 23452-6 ####[facility] LABORATORYCLIA [id number] [place] [address] [place] Chloride [Moles/Vol] 86 mmol/L Low 97-105 [facility] Comment on above: Order Comment: Speci men Type: BLOOD SPECIMENOrdering Facility: [facility] Address: [address] [place] [address] Performed By: #### 1 9123-9, 27711-04, 56154-5 ####[facility] LABORATORYCLIA [id number] [address] [place] CO2 [Moles/Vol] 24 mmol/L Normal 22-30 [facility] Comment on above: Order Comment: Speci men Type: BLOOD SPECIMENOrdering Facility: [facility] Address: [address] [place] [address] Performed By: #### 1 9123-9, 27711-04, 75233-9 ####[facility] LABORATORYCLIA [id number] [place] [address] [place] Creatinine [Mass/Vol] 0.53 mg/dL Low 0.73-1.22 [facility] Comment on above: Order Comment: Speci men Type: BLOOD SPECIMENOrdering Facility: [facility] Address: [address] [place] [address] Performed By: #### 1 9123-9, 27711-04, 71488-3 ####[facility] LABORATORYCLIA [id number] [address] [place] ESTIMATED GLOMERULAR FILTRATION RATE 108 mL/min/1.73m??? Normal >=60 [facility] Comment on above: Order Comment: Shira feldman Type: BLOOD SPECIMENOrdering Facility: [facility] Address: [address] [place] [address] Result Comment: Luzmaria mated Glomerular Filtration Rate [...] GFR. Performed By: #### 1 9123-9, 2777-1, 78222-8 ####[facility] SERVICESCLIA [id number] [place] [address] [place] Glucose [Mass/Vol] 455 mg/dL High 74-99 [facility] Comment on above: Order Comment: Shira feldman Type: BLOOD SPECIMENOrdering Facility: [facility] Address: [address] [place] [address] Result Comment: The [employer] (ADA) [...] 1). Performed By: #### 1 9123-9, 2777-1, 92868-8 ####[facility] LABORATORYCLIA [id number] [place] [address] [place] Potassium [Moles/Vol] 3.4 mmol/L Low 3.7-5.1 [facility] Comment on above: Order Comment: Shira [facility] Type: BLOOD SPECIMENOrdering Facility: [facility] Address: [address] [place] [address] Performed By: #### 1 9123-9, 2777-1, 49463-3 ####[facility]ORATORYCLIA [id number] [address] [place] Sodium [Moles/Vol] 127 mmol/L Low 136-144 [facility] Comment on above: Order Comment: Speci men Type: BLOOD SPECIMENOrdering Facility: [facility] Address: [address] [place] [address] Performed By: #### 1 9123-9, 2777-1, 69820-0 ####[facility]ORATORYCLIA [id number] [address] [place] Urea nitrogen [Mass/Vol] 21 mg/dL Normal 9-24 [facility] Comment on above: Order Comment: Speci men Type: BLOOD SPECIMENOrdering Facility: [facility] Address: [address] [place] [address] Performed By: #### 1 9123-9, 2777-, 38414-8 ####[facility]ORATORYCLIA [id number] [address] [place] CASE MANAGEMon 08-10-2021 CASE MANAGEM Normal [facility] CBC W Auto Differential pane l (Bld)on 08-10-2021 Basophils (Bld) [#/Vol] 0.04 10*3/uL Normal <0.11 [facility] Comment on above: Order Comment: Speci men Type: BLOOD SPECIMENOrdering Facility: [facility] Address: [address] [place] [address] Performed By: #### 5 7021-8 ####[facility] LABORATORYCLIA [id number] [address] [place] Basophils/100 WBC (Bld) 0.4 % Normal [facility] Comment on above: Order Comment: Speci men Type: BLOOD SPECIMENOrdering Facility: [facility] Address: [address] [place] [address] Performed By: #### 5 7021-8 ####[facility]ORATORYCLIA [id number] [address] Differential cell count method Nom (Bld) Auto Normal [facility] Comment on above: Order Comment: Speci men Type: BLOOD SPECIMENOrdering Facility: [facility] Address: [address] [place] [address] Performed By: #### 5 7021-8 ####[facility]ORATORYCLIA [id number] [address] Eosinophils (Bld) [#/Vol] 0.11 10*3/uL Normal <0.46 [facility] Comment on above: Order Comment: Speci men Type: BLOOD SPECIMENOrdering Facility: [facility] Address: [address] [place] [address] Performed By: #### 5 7021-8 ####[facility]ORATORYCLIA [id number] [address] Eosinophils/100 WBC (Bld) 1.1 % Normal [facility] Comment on above: Order Comment: Speci men Type: BLOOD SPECIMENOrdering Facility: [facility] Address: [address] [place] [address] Performed By: #### 5 7021-8 ####[facility]ORATORYCLIA [id number] [address] Erythrocyte distribution width (RBC) [Ratio] 17.2 % High 11.5-15.0 [facility] Comment on above: Order Comment: Speci men Type: BLOOD SPECIMENOrdering Facility: [facility] Address: [address] [place] [address] Performed By: #### 5 7021-8 ####[facility]ORATORYCLIA [id number] [address] Hematocrit (Bld) [Volume fraction] 25.5 % Low 39.0-51.0 [facility] Comment on above: Order Comment: Speci men Type: BLOOD SPECIMENOrdering Facility: [facility] Address: [address] [place] [address] Performed By: #### 5 7021-8 ####[facility]ORATORYCLIA [id number] [address] Hemoglobin (Bld) [Mass/Vol] 7.9 g/dL Low 13.0-17.0 [facility] Comment on above: Order Comment: Speci men Type: BLOOD SPECIMENOrdering Facility: [facility] Address: [address] [place] [address] Performed By: #### 5 7021-8 ####[facility]ORATORYCLIA [id number] [address] IMMATURE GRAN % 0.4 % Normal [facility] Comment on above: Order Comment: Speci men Type: BLOOD SPECIMENOrdering Facility: [facility] Address: [address] [place] [address] Performed By: #### 5 7021-8 ####[facility]ORATORYCLIA [id number] [address] IMMATURE GRAN ABS 0.04 k/uL Normal <0.10 [facility] Comment on above: Order Comment: Speci men Type: BLOOD SPECIMENOrdering Facility: [facility] Address: [address] [place] [address] Performed By: #### 5 7021-8 ####[facility]ORATORYCLIA [id number] [address] Lymphocytes (Bld) [#/Vol] 1.66 10*3/uL Normal 1.00-4.00 [facility] Comment on above: Order Comment: Speci men Type: BLOOD SPECIMENOrdering Facility: [facility] Address: [address] [place] [address] Performed By: #### 5 7021-8 ####[facility]ORATORYCLIA [id number] [address] Lymphocytes/100 WBC (Bld) 16.2 % Normal [facility] Comment on above: Order Comment: Speci men Type: BLOOD SPECIMENOrdering Facility: [facility] Address: [address] [place] [address] Performed By: #### 5 7021-8 ####[facility]ORATORYCLIA [id number] [address] MCH (RBC) [Entitic mass] 28.5 pg Normal 26.0-34.0 [facility] Comment on above: Order Comment: Speci men Type: BLOOD SPECIMENOrdering Facility: [facility] Address: [address] [place] [address] Performed By: #### 5 7021-8 ####[facility]ORATORYCLIA [id number] [address] MCHC (RBC) [Mass/Vol] 31.0 g/dL Normal 30.5-36.0 [facility] Comment on above: Order Comment: Speci men Type: BLOOD SPECIMENOrdering Facility: [facility] Address: [address] [place] [address] Performed By: #### 5 7021-8 ####[facility]ORATORYCLIA [id number] [address] MCV (RBC) [Entitic vol] 92.1 fL Normal 80.0-100.0 [facility] Comment on above: Order Comment: Speci men Type: BLOOD SPECIMENOrdering Facility: [facility] Address: [address] [place] [address] Performed By: #### 5 7021-8 ####[facility]ORATORYCLIA [id number] [address] Monocytes (Bld) [#/Vol] 0.51 10*3/uL Normal <0.87 [facility] Comment on above: Order Comment: Speci men Type: BLOOD SPECIMENOrdering Facility: [facility] Address: [address] [place] [address] Performed By: #### 5 7021-8 ####[facility] HE[facility] SERVICESCLIA [id number] [address] [place] Monocytes/100 WBC (Bld) 5.0 % Normal [facility] Comment on above: Order Comment: Speci men Type: BLOOD SPECIMENOrdering Facility: [facility] Address: [address] [place] [address] Performed By: #### 5 7021-8 ####[facility]ORATORYCLIA [id number] [place] [address] [place] Neutrophils (Bld) [#/Vol] 7.91 10*3/uL High 1.45-7.50 [facility] Comment on above: Order Comment: Speci men Type: BLOOD SPECIMENOrdering Facility: [facility] Address: [address] [place] [address] Performed By: #### 5 7021-8 ####[facility]ORATORYCLIA [id number] [address] Neutrophils/100 WBC (Bld) 76.9 % Normal [facility] Comment on above: Order Comment: Speci men Type: BLOOD SPECIMENOrdering Facility: [facility] Address: [address] [place] [address] Performed By: #### 5 7021-8 ####[facility]ORATORYCLIA [id number] [address] [place] Nucleated RBC (Bld) [#/Vol] 10*3/uL Normal <0.01 [facility] Comment on above: Order Comment: Speci men Type: BLOOD SPECIMENOrdering Facility: [facility] Address: [address] [place] [address] Performed By: #### 5 7021-8 ####[facility]ORATORYCLIA [id number] [address] [place] Nucleated RBC/100 WBC (Bld) [Ratio] 0.0 /100 WBC Normal [facility] Comment on above: Order Comment: Speci men Type: BLOOD SPECIMENOrdering Facility: [facility] Address: [address] Performed By: #### 5 7021-8 ####[facility]ORATORYCLIA [id number] [address] Platelet mean volume (Bld) [Entitic vol] 10.3 fL Normal 9.0-12.7 [facility] Comment on above: Order Comment: Speci men Type: BLOOD SPECIMENOrdering Facility: [facility] Address: [address] [place], [place] [address] Performed By: #### 5 7021-8 ####[facility]ORATORYCLIA [id number] [address] [place] Platelets (Bld) [#/Vol] 152 10*3/uL Normal 150-400 [facility] Comment on above: Order Comment: Speci men Type: BLOOD SPECIMENOrdering Facility: [facility] Address: [address] [place], [place] [address] Performed By: #### 5 7021-8 ####[facility]ORATORYCLIA [id number] [address] [place] RBC (Bld) [#/Vol] 2.77 10*6/uL Low 4.20-6.00 [facility] Comment on above: Order Comment: Speci men Type: BLOOD SPECIMENOrdering Facility: [facility] Address: [address] [place], [place] [address] Performed By: #### 5 7021-8 ####[facility]ORATORYCLIA [id number] [address] [place] WBC (Bld) [#/Vol] 10.27 10*3/uL Normal 3.70-11.00 [facility] Comment on above: Order Comment: Speci men Type: BLOOD SPECIMENOrdering Facility: [facility] Address: [address] [place], [place] [address] Performed By: #### 5 7021-8 ####[facility]ORATORYCLIA [id number] [address] Magnesium SerPl-mCncon 08-10 Magnesium [Mass/Vol] 1.8 mg/dL Normal 1.7-2.3 [facility] Comment on above: Order Comment: Speci men Type: BLOOD SPECIMENOrdering Facility: [facility] Address: [address] [place] [address] Performed By: #### 1 9123-9, 2777-1, 08248-2 ####[facility]ORATORYCLIA [id number] [address] NURSING PROGon 08-10-2021 NURSING PROG Normal [facility] NURSING PROG Normal [facility] NUTRITIONon 08-10-2021 NUTRITION Normal [facility] Phosphate SerPl-mCncon 08-10 Phosphate [Mass/Vol] 3.7 mg/dL Normal 2.7-4.8 [facility] Comment on above: Order Comment: Speci men Type: BLOOD SPECIMENOrdering Facility: [facility] Address: [address] [place] [address] Performed By: #### 1 9123-9, 2777-1, 42635-2 ####[facility]ORATORYCLIA [id number] [address] ALLIED HEALTHon 08-09-2021 ALLIED HEALTH Normal [facility] ANES POSTPROC EVALon 022 ANES POSTPROC EVAL Normal [facility] ANES PRE-OPon 08-09-2021 ANES PRE-OP Normal [facility] BRIEF OP NOTon 08-09-2021 BRIEF OP NOT Normal [facility] Basic metabolic 2000 panelon 08-09-2021 Anion gap [Moles/Vol] 8 mmol/L Low 9-18 [facility] Comment on above: Order Comment: Speci men Type: BLOOD SPECIMENOrdering Facility: [facility] Address: [address] [place] [address] Performed By: #### 2 4321-2, 67229-2, 2777-1 ####[facility]ORATORYCLIA [id number] [address] STATES OF [facility] Calcium [Mass/Vol] 9.2 mg/dL Normal 8.5-10.2 [facility] Comment on above: Order Comment: Speci men Type: BLOOD SPECIMENOrdering Facility: [facility] Address: [address] [place] [address] Performed By: #### 2 4321-2, , 2776-05 ####[facility]ORATORYCLIA [id number] [place] [address] [place] Chloride [Moles/Vol] 97 mmol/L Normal 97-105 [facility] Comment on above: Order Comment: Speci men Type: BLOOD SPECIMENOrdering Facility: [facility] Address: [address] [place] [address] Performed By: #### 2 4321-2, , 2776-05 ####[facility]ORATORYCLIA [id number] [address] STATES OF [facility] CO2 [Moles/Vol] 30 mmol/L Normal 22-30 [facility] Comment on above: Order Comment: Speci men Type: BLOOD SPECIMENOrdering Facility: [facility] Address: [address] [place] [address] Performed By: #### 2 4321-2, , 2776-05 ####[facility]ORATORYCLIA [id number] [address] [place] Creatinine [Mass/Vol] 0.51 mg/dL Low 0.73-1.22 [facility] Comment on above: Order Comment: Speci men Type: BLOOD SPECIMENOrdering Facility: [facility] Address: [address] [place] [address] Performed By: #### 2 4321-2, , 2776-05 ####[facility]ORATORYCLIA [id number] [address] [place] ESTIMATED GLOMERULAR FILTRATION RATE 110 mL/min/1.73m??? Normal >=60 [facility] Comment on above: Order Comment: Shira feldman Type: BLOOD SPECIMENOrdering Facility: [facility] Address: [address] [place] [address] Result Comment: Luzmaria mated Glomerular Filtration Rate [...] actual GFR. Performed By: #### 2 4321-2, 95436-1, 2776-05 ####[facility]ORATORYCLIA [id number] [place] [address] [place] Glucose [Mass/Vol] 106 mg/dL High 74-99 [facility] Comment on above: Order Comment: Shira feldman Type: BLOOD SPECIMENOrdering Facility: [facility] Address: [address] [place] [address] Result Comment: The [employer] (ADA) [...] Performed By: #### 2 4321-2, , 2776-05 ####[facility]ORATORYCLIA [id number] [place] [address] [place] Potassium [Moles/Vol] 4.1 mmol/L Normal 3.7-5.1 [facility] Comment on above: Order Comment: Shira feldman Type: BLOOD SPECIMENOrdering Facility: [facility] Address: [address] [place] [address] Performed By: #### 2 4321-2, , 1 ####[facility]ORATORYCLIA [id number] [address] STATES OF [facility] Sodium [Moles/Vol] 135 mmol/L Low 136-144 [facility] Comment on above: Order Comment: Speci men Type: BLOOD SPECIMENOrdering Facility: [facility] Address: [address] [place] [address] Performed By: #### 2 4321-2, , 2776-05 ####[facility]ORATORYCLIA [id number] [address] [place] Urea nitrogen [Mass/Vol] 26 mg/dL High 9-24 [facility] Comment on above: Order Comment: Speci men Type: BLOOD SPECIMENOrdering Facility: [facility] Address: [address] [place] [address] Performed By: #### 2 4321-2, , 2776-05 ####[facility]ORATORYCLIA [id number] [address] [place] CBC W Auto Differential pane l (Bld)on 08-09-2021 Basophils (Bld) [#/Vol] 0.06 10*3/uL Normal <0.11 [facility] Comment on above: Order Comment: Speci men Type: BLOOD SPECIMENOrdering Facility: [facility] Address: [address] [place] [address] Performed By: #### 5 7021-8 ####[facility]ORATORYCLIA [id number] [address] [place] Basophils/100 WBC (Bld) 0.5 % Normal [facility] Comment on above: Order Comment: Speci men Type: BLOOD SPECIMENOrdering Facility: [facility] Address: [address] [place] [address] Performed By: #### 5 7021-8 ####[facility]ORATORYCLIA [id number] [address] Differential cell count method Nom (Bld) Auto Normal [facility] Comment on above: Order Comment: Speci men Type: BLOOD SPECIMENOrdering Facility: [facility] Address: [address] [place] [address] Performed By: #### 5 7021-8 ####[facility]ORATORYCLIA [id number] [address] [place] Eosinophils (Bld) [#/Vol] 0.42 10*3/uL Normal <0.46 [facility] Comment on above: Order Comment: Speci men Type: BLOOD SPECIMENOrdering Facility: [facility] Address: [address] [place] [address] Performed By: #### 5 7021-8 ####[facility]ORATORYCLIA [id number] [address] Eosinophils/100 WBC (Bld) 3.8 % Normal [facility] Comment on above: Order Comment: Speci men Type: BLOOD SPECIMENOrdering Facility: [facility] Address: [address] [place] [address] Performed By: #### 5 7021-8 ####[facility]ORATORYCLIA [id number] [address] [place] Erythrocyte distribution width (RBC) [Ratio] 17.6 % High 11.5-15.0 [facility] Comment on above: Order Comment: Speci men Type: BLOOD SPECIMENOrdering Facility: [facility] Address: [address] [place] [address] Performed By: #### 5 7021-8 ####[facility]ORATORYCLIA [id number] [address] Hematocrit (Bld) [Volume fraction] 29.3 % Low 39.0-51.0 [facility] Comment on above: Order Comment: Speci men Type: BLOOD SPECIMENOrdering Facility: [facility] Address: [address] [place] [address] Performed By: #### 5 7021-8 ####[facility]ORATORYCLIA [id number] [address] [place] OF [facility] Hemoglobin (Bld) [Mass/Vol] 9.0 g/dL Low 13.0-17.0 [facility] Comment on above: Order Comment: Speci men Type: BLOOD SPECIMENOrdering Facility: [facility] Address: [address] [place] [address] Performed By: #### 5 7021-8 ####[facility]ORATORYCLIA [id number] [address] IMMATURE GRAN % 0.5 % Normal [facility] Comment on above: Order Comment: Speci men Type: BLOOD SPECIMENOrdering Facility: [facility] Address: [address] [place] [address] Performed By: #### 5 7021-8 ####[facility]ORATORYCLIA [id number] [address] IMMATURE GRAN ABS 0.05 k/uL Normal <0.10 [facility] Comment on above: Order Comment: Speci men Type: BLOOD SPECIMENOrdering Facility: [facility] Address: [address] [place] [address] Performed By: #### 5 7021-8 ####[facility]ORATORYCLIA [id number] [address] [place] Lymphocytes (Bld) [#/Vol] 2.00 10*3/uL Normal 1.00-4.00 [facility] Comment on above: Order Comment: Speci men Type: BLOOD SPECIMENOrdering Facility: [facility] Address: [address] [place] [address] Performed By: #### 5 7021-8 ####[facility]ORATORYCLIA [id number] [address] Lymphocytes/100 WBC (Bld) 18.1 % Normal [facility] Comment on above: Order Comment: Speci men Type: BLOOD SPECIMENOrdering Facility: [facility] Address: [address] [place] [address] Performed By: #### 5 7021-8 ####[facility]ORATORYCLIA [id number] [address] MCH (RBC) [Entitic mass] 28.1 pg Normal 26.0-34.0 [facility] Comment on above: Order Comment: Speci men Type: BLOOD SPECIMENOrdering Facility: [facility] Address: [address] [place] [address] Performed By: #### 5 7021-8 ####[facility]ORATORYCLIA [id number] [address] MCHC (RBC) [Mass/Vol] 30.7 g/dL Normal 30.5-36.0 [facility] Comment on above: Order Comment: Speci men Type: BLOOD SPECIMENOrdering Facility: [facility] Address: [address] [place] [address] Performed By: #### 5 7021-8 ####[facility]ORATORYCLIA [id number] [address] STATES OF [facility] MCV (RBC) [Entitic vol] 91.6 fL Normal 80.0-100.0 [facility] Comment on above: Order Comment: Speci men Type: BLOOD SPECIMENOrdering Facility: [facility] Address: [address] [place] [address] Performed By: #### 5 7021-8 ####[facility]ORATORYCLIA [id number] [address] Monocytes (Bld) [#/Vol] 0.68 10*3/uL Normal <0.87 [facility] Comment on above: Order Comment: Speci men Type: BLOOD SPECIMENOrdering Facility: [facility] Address: [address] [place] [address] Performed By: #### 5 7021-8 ####[facility]ORATORYCLIA [id number] [address] Monocytes/100 WBC (Bld) 6.2 % Normal [facility] Comment on above: Order Comment: Speci men Type: BLOOD SPECIMENOrdering Facility: [facility] Address: [address] [place] [address] Performed By: #### 5 7021-8 ####[facility]ORYCLIA [id number] [address] [place] Neutrophils (Bld) [#/Vol] 7.82 10*3/uL High 1.45-7.50 [facility] Comment on above: Order Comment: Speci men Type: BLOOD SPECIMENOrdering Facility: [facility] Address: [address] [place] [address] Performed By: #### 5 7021-8 ####[facility]ORYCLIA [id number] [address] [place] Neutrophils/100 WBC (Bld) 70.9 % Normal [facility] Comment on above: Order Comment: Speci men Type: BLOOD SPECIMENOrdering Facility: [facility] Address: [address] [place], [place] [id number] Performed By: #### 5 7021-8 ####[facility]ORY[facility] [id number] [address] [place] Nucleated RBC (Bld) [#/Vol] 10*3/uL Normal <0.01 [facility] Comment on above: Order Comment: Speci men Type: BLOOD SPECIMENOrdering Facility: [facility] Address: [address] [place], [place] [id number] Performed By: #### 5 7021-8 ####[facility]ATORYCLIA [id number] [address] [place] Nucleated RBC/100 WBC (Bld) [Ratio] 0.0 /100 WBC Normal [facility] Comment on above: Order Comment: Speci men Type: BLOOD SPECIMENOrdering Facility: [facility] Address: [address] [place] [address] Performed By: #### 5 7021-8 ####[facility]ORATORYCLIA [id number] [address] [place] Platelet mean volume (Bld) [Entitic vol] 10.1 fL Normal 9.0-12.7 [facility] Comment on above: Order Comment: Speci men Type: BLOOD SPECIMENOrdering Facility: [facility] Address: [address] [place] [address] Performed By: #### 5 7021-8 ####[facility] LABORATORYCLIA [id number] [address] [place] Platelets (Bld) [#/Vol] 160 10*3/uL Normal 150-400 [facility] Comment on above: Order Comment: Speci men Type: BLOOD SPECIMENOrdering Facility: [facility] Address: [address] [place] [address] Performed By: #### 5 7021-8 ####[facility] LABORATORYCLIA [id number] [place] [address] [place] RBC (Bld) [#/Vol] 3.20 10*6/uL Low 4.20-6.00 [facility] Comment on above: Order Comment: Speci men Type: BLOOD SPECIMENOrdering Facility: [facility] Address: [address] [place] [address] Performed By: #### 5 7021-8 ####[facility] LABORATORYCLIA [id number] [place] [address] [place] WBC (Bld) [#/Vol] 11.03 10*3/uL High 3.70-11.00 [facility] Comment on above: Order Comment: Speci men Type: BLOOD SPECIMENOrdering Facility: [facility] Address: [address] [place] [address] Performed By: #### 5 7021-8 ####[facility] LABORATORYCLIA [id number] [address] [place] CONSULT PROGon 08-09-2021 CONSULT PROG Normal [facility] CT BRAIN WO IVCONon 08-10-[address] BRAIN WO IVCON Normal [facility] CT BRAIN WO IVCON Normal [facility] Magnesium SerPl-mCncon 08-09 Magnesium [Mass/Vol] 2.0 mg/dL Normal 1.7-2.3 [facility] Comment on above: Order Comment: Speci men Type: BLOOD SPECIMENOrdering Facility: [facility] Address: [address] [place] [address] Performed By: #### 2 4321-2, 56828-6, 2777-1 ####[facility] LABORATORYCLIA [id number] [address] OF [facility] NURSING PROGon 08-09-2021 NURSING PROG Normal [facility] OPERATIVE NOon 08-09-2021 OPERATIVE NO Normal [facility] PT panel Coag (PPP)on 2021 INR Coag (PPP) [Relative time] 1.1 {INR} Normal 0.9-1.3 [facility] Comment on above: Order Comment: Speci men Type: BLOOD SPECIMENOrdering Facility: [facility] Address: [address] [place] [address] Result Comment: Yris min K Antagonist (VKA) [...] of 2.5 to 3.5 (target INR of 3).Jfefy GUZMAN, et al. Chest 2012, 141:7S-47SAlba MURRY, et al. [facility] 2017, 70: 252-289 Performed By: #### 3 4528-0, 58646-0 ####[facility] LABORATORYCLIA [id number] [address] [place] PT Coag (PPP) [Time] 11.7 s Normal 9.7-13.0 [facility] Comment on above: Order Comment: Speci men Type: BLOOD SPECIMENOrdering Facility: [facility] Address: [address] [place] [address] Performed By: #### 3 4528-0, 06399-0 ####[facility] LABORATORYCLIA [id number] [address] [place] Phosphate SerPl-mCncon 08-09 Phosphate [Mass/Vol] 4.0 mg/dL Normal 2.7-4.8 [facility] Comment on above: Order Comment: Speci men Type: BLOOD SPECIMENOrdering Facility: [facility] Address: [address] [place] [address] Performed By: #### 2 4321-2, 89866-1, 2777-1 ####[facility] LABORATORYCLIA [id number] [address] OF [facility] THERAPY NTon 08-09-2021 THERAPY NT Normal [facility] THERAPY NT Normal [facility] TYPE AND SCREENon 08-09-2021 ABO O Normal [facility] Comment on above: Order Comment: Speci men Type: BLOOD SPECIMENOrdering Facility: [facility] Address: [address] [place] [address] Performed By: #### T SCR ####[facility] BLOOD BANKCLIA [id number] [address] [place] HISTORICAL AB SCR STATUS Negative Normal [facility] Comment on above: Order Comment: Speci men Type: BLOOD SPECIMENOrdering Facility: [facility] Address: [address] [place] [address] Performed By: #### T SCR ####[facility] BLOOD BANKCLIA [id number] [address] Rh Nom (Bld) Positive Normal [facility] Comment on above: Order Comment: Speci men Type: BLOOD SPECIMENOrdering Facility: [facility] Address: [address] [place] [address] Performed By: #### T SCR ####[facility] BLOOD BANKCLIA [id number] [address] TYPE AND SCREEN EXPIRATION 08/12/2021 23:59 Normal [facility] Comment on above: Order Comment: Speci men Type: BLOOD SPECIMENOrdering Facility: [facility] Address: [address] [place] [address] Performed By: #### T SCR ####[facility] BLOOD BANKCLIA [id number] [address] XR ABD 2V SUPINE W UPR/DECUB [...] [Time] 26.8 s Normal 23.0-32.[address] [facility] Comment on above: Order Comment: Speci men Type: BLOOD SPECIMENOrdering Facility: [facility] Address: [address] [place] [address] Performed By: #### 3 4528-0, 76558-0 ####[facility] LABORATORYCLIA [id number] [address] CASE MANAGEMon 08-08-2021 CASE MANAGEM Normal [facility] CBC W Auto Differential pane l (Bld)on 08-08-2021 Basophils (Bld) [#/Vol] 0.05 10*3/uL Normal <0.11 [facility] Comment on above: Order Comment: Speci men Type: BLOOD SPECIMENOrdering Facility: [facility] Address: [address] [place] [address] Performed By: #### 5 7021-8 ####[facility]ORATORYCLIA [id number] [address] Basophils/100 WBC (Bld) 0.5 % Normal [facility] Comment on above: Order Comment: Speci men Type: BLOOD SPECIMENOrdering Facility: [facility] Address: [address] [place] [address] Performed By: #### 5 7021-8 ####[facility] LABORATORYCLIA [id number] [address] Differential cell count method Nom (Bld) Auto Normal [facility] Comment on above: Order Comment: Speci men Type: BLOOD SPECIMENOrdering Facility: [facility] Address: [address] [place] [address] Performed By: #### 5 7021-8 ####[facility] LABORATORYCLIA [id number] [address] [place] Eosinophils (Bld) [#/Vol] 0.17 10*3/uL Normal <0.46 [facility] Comment on above: Order Comment: Speci men Type: BLOOD SPECIMENOrdering Facility: [facility] Address: [address] [place] [address] Performed By: #### 5 7021-8 ####[facility]ORATORYCLIA [id number] [address] Eosinophils/100 WBC (Bld) 1.6 % Normal [facility] Comment on above: Order Comment: Speci men Type: BLOOD SPECIMENOrdering Facility: [facility] Address: [address] [place] [address] Performed By: #### 5 7021-8 ####[facility]ORATORYCLIA [id number] [address] [place] Erythrocyte distribution width (RBC) [Ratio] 17.8 % High 11.5-15.0 [facility] Comment on above: Order Comment: Speci men Type: BLOOD SPECIMENOrdering Facility: [facility] Address: [address] [place] [address] Performed By: #### 5 7021-8 ####[facility] LABORATORYCLIA [id number] [address] Hematocrit (Bld) [Volume fraction] 29.6 % Low 39.0-51.0 [facility] Comment on above: Order Comment: Speci men Type: BLOOD SPECIMENOrdering Facility: [facility] Address: [address] [place] [address] Performed By: #### 5 7021-8 ####[facility] LABORATORYCLIA [id number] [address] Hemoglobin (Bld) [Mass/Vol] 9.0 g/dL Low 13.0-17.0 [facility] Comment on above: Order Comment: Speci men Type: BLOOD SPECIMENOrdering Facility: [facility] Address: [address] [place] [address] Performed By: #### 5 7021-8 ####[facility] LABORATORYCLIA [id number] [address] IMMATURE GRAN % 0.5 % Normal [facility] Comment on above: Order Comment: Speci men Type: BLOOD SPECIMENOrdering Facility: [facility] Address: [address] [place] [address] Performed By: #### 5 7021-8 ####[facility] LABORATORYCLIA [id number] [address] IMMATURE GRAN ABS 0.05 k/uL Normal <0.10 [facility] Comment on above: Order Comment: Speci men Type: BLOOD SPECIMENOrdering Facility: [facility] Address: [address] [place] [address] Performed By: #### 5 7021-8 ####[facility] LABORATORYCLIA [id number] [place] [address] [place] Lymphocytes (Bld) [#/Vol] 1.93 10*3/uL Normal 1.00-4.00 [facility] Comment on above: Order Comment: Speci men Type: BLOOD SPECIMENOrdering Facility: [facility] Address: [address] [place] [address] Performed By: #### 5 7021-8 ####[facility] LABORATORYCLIA [id number] [address] [place] Lymphocytes/100 WBC (Bld) 18.2 % Normal [facility] Comment on above: Order Comment: Speci men Type: BLOOD SPECIMENOrdering Facility: [facility] Address: [address] [place] [address] Performed By: #### 5 7021-8 ####[facility] LABORATORYCLIA [id number] [address] [place] MCH (RBC) [Entitic mass] 28.1 pg Normal 26.0-34.0 [facility] Comment on above: Order Comment: Speci men Type: BLOOD SPECIMENOrdering Facility: [facility] Address: [address] [place] [address] Performed By: #### 5 7021-8 ####[facility] LABORATORYCLIA [id number] [address] [place] MCHC (RBC) [Mass/Vol] 30.4 g/dL Low 30.5-36.0 [facility] Comment on above: Order Comment: Speci men Type: BLOOD SPECIMENOrdering Facility: [facility] Address: [address] [place] [address] Performed By: #### 5 7021-8 ####[facility] LABORATORYCLIA [id number] [address] MCV (RBC) [Entitic vol] 92.5 fL Normal 80.0-100.0 [facility] Comment on above: Order Comment: Speci men Type: BLOOD SPECIMENOrdering Facility: [facility] Address: [address] [place] [address] Performed By: #### 5 7021-8 ####[facility]ORATORYCLIA [id number] [place] [address] [place] Monocytes (Bld) [#/Vol] 0.75 10*3/uL Normal <0.87 [facility] Comment on above: Order Comment: Speci men Type: BLOOD SPECIMENOrdering Facility: [facility] Address: [address] [place] [address] Performed By: #### 5 7021-8 ####[facility]ORATORYCLIA [id number] [address] [place] Monocytes/100 WBC (Bld) 7.1 % Normal [facility] Comment on above: Order Comment: Speci men Type: BLOOD SPECIMENOrdering Facility: [facility] Address: [address] [place] [address] Performed By: #### 5 7021-8 ####[facility] LABORATORYCLIA [id number] [address] [place] Neutrophils (Bld) [#/Vol] 7.65 10*3/uL High 1.45-7.50 [facility] Comment on above: Order Comment: Speci men Type: BLOOD SPECIMENOrdering Facility: [facility] Address: [address] [place] [address] Performed By: #### 5 7021-8 ####[facility]ORATORYCLIA [id number] [address] [place] Neutrophils/100 WBC (Bld) 72.1 % Normal [facility] Comment on above: Order Comment: Speci men Type: BLOOD SPECIMENOrdering Facility: [facility] Address: [address] [place] [address] Performed By: #### 5 7021-8 ####[facility] LABORATORYCLIA [id number] [place] [address] [place] Nucleated RBC (Bld) [#/Vol] 10*3/uL Normal <0.01 [facility] Comment on above: Order Comment: Speci men Type: BLOOD SPECIMENOrdering Facility: [facility] Address: [address] [place] [address] Performed By: #### 5 7021-8 ####[facility] LABORATORYCLIA [id number] [address] Nucleated RBC/100 WBC (Bld) [Ratio] 0.0 /100 WBC Normal [facility] Comment on above: Order Comment: Speci men Type: BLOOD SPECIMENOrdering Facility: [facility] Address: [address] [place] [address] Performed By: #### 5 7021-8 ####[facility] LABORATORYCLIA [id number] [address] [place] Platelet mean volume (Bld) [Entitic vol] 9.8 fL Normal 9.0-12.7 [facility] Comment on above: Order Comment: Speci men Type: BLOOD SPECIMENOrdering Facility: [facility] Address: [address] [place] [address] Performed By: #### 5 7021-8 ####[facility] LABORATORYCLIA [id number] [address] [place] Platelets (Bld) [#/Vol] 175 10*3/uL Normal 150-400 [facility] Comment on above: Order Comment: Speci men Type: BLOOD SPECIMENOrdering Facility: [facility] Address: [address] [place] [address] Performed By: #### 5 7021-8 ####[facility] LABORATORYCLIA [id number] [address] [place] RBC (Bld) [#/Vol] 3.20 10*6/uL Low 4.20-6.00 [facility] Comment on above: Order Comment: Speci men Type: BLOOD SPECIMENOrdering Facility: [facility] Address: [address] [place] [address] Performed By: #### 5 7021-8 ####[facility] LABORATORYCLIA [id number] [address] [place] WBC (Bld) [#/Vol] 10.60 10*3/uL Normal 3.70-11.00 [facility] Comment on above: Order Comment: Speci men Type: BLOOD SPECIMENOrdering Facility: [facility] Address: [address] [place] [address] Performed By: #### 5 7021-8 ####[facility] LABORATORYCLIA [id number] [address] [place] CT BRAIN WO IVCONon 08-09-19 CT BRAIN WO IVCON Normal [facility] NURSING PROGon 08-08-2021 NURSING PROG Normal [facility] Prealbumin [Mass/Vol]on Prealbumin Nephelometry [Mass/Vol] 29 mg/dL Normal 17-36 [facility] Comment on above: Order Comment: Speci men Type: BLOOD SPECIMENOrdering Facility: [facility] Address: [address] [place] [address] Performed By: #### 1 4338-8 ####[facility] LABORATORYCLIA [id number] [address] OF [facility] SARS-CoV-2 RNA Resp Ql MEGAN+p robeon 08-08-2021 SARS-CoV-2 (COVID-19) RNA MEGAN+probe Ql (Resp) COVID 19 RESULT: SARS-CoV-2 (Agent of COVID-19) Not Detected by RT-PCR or equivalent method. This test has been authorized by FDA under an Emergency Use Authorization (EUA). Normal [facility] Comment on above: Performed By: #### 9 4500-6 ####[facility] LABORATORYCLIA [id number] [address] [place] ALLIED HEALTHon 08-07-2021 ALLIED HEALTH Normal [facility] Basic metabolic 2000 panelon 08-07-2021 Anion gap [Moles/Vol] 9 mmol/L Normal 9-18 [facility] Comment on above: Order Comment: Speci men Type: BLOOD SPECIMENOrdering Facility: [facility] Address: [address] Performed By: #### 2 4321-2, 2776-, , HFP ####[facility] LABORATORYCLIA [id number] [place] [address] [place] Calcium [Mass/Vol] 9.4 mg/dL Normal 8.5-10.2 [facility] Comment on above: Order Comment: Speci men Type: BLOOD SPECIMENOrdering Facility: [facility] Address: [address] [place] [address] Performed By: #### 2 4321-2, 2776-05, , HFP ####[facility] LABORATORYCLIA [id number] [place] [address] [place] Chloride [Moles/Vol] 98 mmol/L Normal 97-105 [facility] Comment on above: Order Comment: Speci men Type: BLOOD SPECIMENOrdering Facility: [facility] Address: [address] [place] [address] Performed By: #### 2 4321-2, 2776-05, , HFP ####[facility] LABORATORYCLIA [id number] [place] [address] [place] CO2 [Moles/Vol] 29 mmol/L Normal 22-30 [facility] Comment on above: Order Comment: Speci men Type: BLOOD SPECIMENOrdering Facility: [facility] Address: [address] [place], [place] [address] Performed By: #### 2 4321-2, 2776-05, , HFP ####[facility] LABORATORYCLIA [id number] [place] [address] [place] Creatinine [Mass/Vol] 0.67 mg/dL Low 0.73-1.22 [facility] Comment on above: Order Comment: Speci men Type: BLOOD SPECIMENOrdering Facility: [facility] Address: [address] [place], [place] [address] Performed By: #### 2 4321-2, 2776-, , HFP ####[facility] OR[facility] COUNTYIA [id number] [place] [address] [facility] ESTIMATED GLOMERULAR FILTRATION RATE 101 mL/min/1.73m??? Normal >=60 [facility] Comment on above: Order Comment: Shira feldman Type: BLOOD SPECIMENOrdering Facility: [facility] Address: [address] [place] [address] Result Comment: Luzmaria mated Glomerular Filtration Rate [...] 2777-, , [facility] ####[facility] [id number] [place] [id number] [facility] Glucose [Mass/Vol] 117 mg/dL High 74-99 [facility] Comment on above: Order Comment: Johncara feldman Type: BLOOD SPECIMENOrdering Facility: [facility] Address: [address] [place] [address] Result Comment: The [employer] (ADA) [...] 2777-, , [facility] ####[facility] OR[facility] COUNTYIA [id number] [place] [address] [place] Potassium [Moles/Vol] 4.1 mmol/L Normal 3.7-5.1 [facility] Comment on above: Order Comment: Speci men Type: BLOOD SPECIMENOrdering Facility: [facility] Address: [address] [place] [address] Performed By: #### 2 4321-2, 2777-1, , HFP ####[facility] LABORATORYCLIA [id number] [address] STATES [facility] Sodium [Moles/Vol] 136 mmol/L Normal 136-144 [facility] Comment on above: Order Comment: Speci men Type: BLOOD SPECIMENOrdering Facility: [facility] Address: [address] [place] [address] Performed By: #### 2 4321-2, 2776-, , HFP ####[facility] LABORATORYCLIA [id number] [address] STATES [facility] Urea nitrogen [Mass/Vol] 31 mg/dL High 9-24 [facility] Comment on above: Order Comment: Speci men Type: BLOOD SPECIMENOrdering Facility: [facility] Address: [address] [place] [address] Performed By: #### 2 4321-2, 2776-, , HFP ####[facility] LABORATORYCLIA [id number] [address] STATES OF [facility] CBC W Auto Differential pane l (Bld)on 08-07-2021 Basophils (Bld) [#/Vol] 0.03 10*3/uL Normal <0.11 [facility] Comment on above: Order Comment: Speci men Type: BLOOD SPECIMENOrdering Facility: [facility] Address: [address] [place] [address] Performed By: #### 5 7021-8 ####[facility] LABORATORYCLIA [id number] [address] Basophils/100 WBC (Bld) 0.3 % Normal [facility] Comment on above: Order Comment: Speci men Type: BLOOD SPECIMENOrdering Facility: [facility] Address: [address] [place] [address] Performed By: #### 5 7021-8 ####[facility] LABORATORYCLIA [id number] [address] Differential cell count method Nom (Bld) Auto Normal [facility] Comment on above: Order Comment: Speci men Type: BLOOD SPECIMENOrdering Facility: [facility] Address: [address] [place] [address] Performed By: #### 5 7021-8 ####[facility] LABORATORYCLIA [id number] [address] [place] Eosinophils (Bld) [#/Vol] 0.16 10*3/uL Normal <0.46 [facility] Comment on above: Order Comment: Speci men Type: BLOOD SPECIMENOrdering Facility: [facility] Address: [address] [place] [address] Performed By: #### 5 7021-8 ####[facility] LABORATORYCLIA [id number] [address] Eosinophils/100 WBC (Bld) 1.6 % Normal [facility] Comment on above: Order Comment: Speci men Type: BLOOD SPECIMENOrdering Facility: [facility] Address: [address] [place] [address] Performed By: #### 5 7021-8 ####[facility] LABORATORYCLIA [id number] [address] [place] Erythrocyte distribution width (RBC) [Ratio] 18.1 % High 11.5-15.0 [facility] Comment on above: Order Comment: Speci men Type: BLOOD SPECIMENOrdering Facility: [facility] Address: [address] [place] [address] Performed By: #### 5 7021-8 ####[facility] LABORATORYCLIA [id number] [address] [place] Hematocrit (Bld) [Volume fraction] 30.6 % Low 39.0-51.0 [facility] Comment on above: Order Comment: Speci men Type: BLOOD SPECIMENOrdering Facility: [facility] Address: [address] [place] [address] Performed By: #### 5 7021-8 ####[facility] LABORATORYCLIA [id number] [address] [place] Hemoglobin (Bld) [Mass/Vol] 9.4 g/dL Low 13.0-17.0 [facility] Comment on above: Order Comment: Speci men Type: BLOOD SPECIMENOrdering Facility: [facility] Address: [address] [place] [address] Performed By: #### 5 7021-8 ####[facility] LABORATORYCLIA [id number] [address] [place] IMMATURE GRAN % 0.4 % Normal [facility] Comment on above: Order Comment: Speci men Type: BLOOD SPECIMENOrdering Facility: [facility] Address: [address] [place] [address] Performed By: #### 5 7021-8 ####[facility] LABORATORYCLIA [id number] [address] IMMATURE GRAN ABS 0.04 k/uL Normal <0.10 [facility] Comment on above: Order Comment: Speci men Type: BLOOD SPECIMENOrdering Facility: [facility] Address: [address] [place] [address] Performed By: #### 5 7021-8 ####[facility]ORATORYCLIA [id number] [address] [place] Lymphocytes (Bld) [#/Vol] 2.05 10*3/uL Normal 1.00-4.00 [facility] Comment on above: Order Comment: Speci men Type: BLOOD SPECIMENOrdering Facility: [facility] Address: [address] [place] [address] Performed By: #### 5 7021-8 ####[facility]ORATORYCLIA [id number] [address] Lymphocytes/100 WBC (Bld) 20.2 % Normal [facility] Comment on above: Order Comment: Speci men Type: BLOOD SPECIMENOrdering Facility: [facility] Address: [address] [place] [address] Performed By: #### 5 7021-8 ####[facility] LABORATORYCLIA [id number] [address] MCH (RBC) [Entitic mass] 28.8 pg Normal 26.0-34.0 [facility] Comment on above: Order Comment: Speci men Type: BLOOD SPECIMENOrdering Facility: [facility] Address: [address] [place] [address] Performed By: #### 5 7021-8 ####[facility] LABORATORYCLIA [id number] [address] MCHC (RBC) [Mass/Vol] 30.7 g/dL Normal 30.5-36.0 [facility] Comment on above: Order Comment: Speci men Type: BLOOD SPECIMENOrdering Facility: [facility] Address: [address] [place] [address] Performed By: #### 5 7021-8 ####[facility] LABORATORYCLIA [id number] [address] MCV (RBC) [Entitic vol] 93.9 fL Normal 80.0-100.0 [facility] Comment on above: Order Comment: Speci men Type: BLOOD SPECIMENOrdering Facility: [facility] Address: [address] [place] [address] Performed By: #### 5 7021-8 ####[facility] LABORATORYCLIA [id number] [address] Monocytes (Bld) [#/Vol] 0.64 10*3/uL Normal <0.87 [facility] Comment on above: Order Comment: Speci men Type: BLOOD SPECIMENOrdering Facility: [facility] Address: [address] [place] [address] Performed By: #### 5 7021-8 ####[facility]ORATORYCLIA [id number] [address] [place] Monocytes/100 WBC (Bld) 6.3 % Normal [facility] Comment on above: Order Comment: Speci men Type: BLOOD SPECIMENOrdering Facility: [facility] Address: [address] [place] [address] Performed By: #### 5 7021-8 ####[facility] LABORATORYCLIA [id number] [place] [address] [place] Neutrophils (Bld) [#/Vol] 7.22 10*3/uL Normal 1.45-7.50 [facility] Comment on above: Order Comment: Speci men Type: BLOOD SPECIMENOrdering Facility: [facility] Address: [address] [place] [address] Performed By: #### 5 7021-8 ####[facility] LABORATORYCLIA [id number] [address] [place] Neutrophils/100 WBC (Bld) 71.2 % Normal [facility] Comment on above: Order Comment: Speci men Type: BLOOD SPECIMENOrdering Facility: [facility] Address: [address] [place] [address] Performed By: #### 5 7021-8 ####[facility]ORATORYCLIA [id number] [place] [address] [place] Nucleated RBC (Bld) [#/Vol] 10*3/uL Normal <0.01 [facility] Comment on above: Order Comment: Speci men Type: BLOOD SPECIMENOrdering Facility: [facility] Address: [address] [place] [address] Performed By: #### 5 7021-8 ####[facility]ATORYCLIA [id number] [place] [address] [place] Nucleated RBC/100 WBC (Bld) [Ratio] 0.0 /100 WBC Normal [facility] Comment on above: Order Comment: Speci men Type: BLOOD SPECIMENOrdering Facility: [facility] Address: [address] [place] [address] Performed By: #### 5 7021-8 ####[facility] LABORATORYCLIA [id number] [address] [place] Platelet mean volume (Bld) [Entitic vol] 9.9 fL Normal 9.0-12.7 [facility] Comment on above: Order Comment: Speci men Type: BLOOD SPECIMENOrdering Facility: [facility] Address: [address] [place], [place] [address] Performed By: #### 5 7021-8 ####[facility] LABORATORYCLIA [id number] [address] [place] Platelets (Bld) [#/Vol] 227 10*3/uL Normal 150-400 [facility] Comment on above: Order Comment: Speci men Type: BLOOD SPECIMENOrdering Facility: [facility] Address: [address] [place] [address] Performed By: #### 5 7021-8 ####[facility] LABORATORYCLIA [id number] [place] [address] [place] RBC (Bld) [#/Vol] 3.26 10*6/uL Low 4.20-6.00 [facility] Comment on above: Order Comment: Speci men Type: BLOOD SPECIMENOrdering Facility: [facility] Address: [address] [place], [place] [address] Performed By: #### 5 7021-8 ####[facility] LABORATORYCLIA [id number] [address] [place] WBC (Bld) [#/Vol] 10.14 10*3/uL Normal 3.70-11.00 [facility] Comment on above: Order Comment: Speci men Type: BLOOD SPECIMENOrdering Facility: [facility] Address: [address] [place], [place] [address] Performed By: #### 5 7021-8 ####[facility] LABORATORYCLIA [id number] [address] BRAIN WO IVCONon 08-08-19 CT BRAIN WO IVCON Normal [facility] HEPATIC FUNCTION PNLon 08-07 Albumin [Mass/Vol] 3.6 g/dL Low 3.9-4.9 [facility] Comment on above: Order Comment: Speci men Type: BLOOD SPECIMENOrdering Facility: [facility] Address: [address] [place] [address] Performed By: #### 2 4321-2, 2777-1, , HFP ####[facility] LABORATORYCLIA [id number] [address] ALP [Catalytic activity/Vol] 124 U/L High 38-113 [facility] Comment on above: Order Comment: Speci men Type: BLOOD SPECIMENOrdering Facility: [facility] Address: [address] [place] [address] Performed By: #### 2 4321-2, 2777-1, , HFP ####[facility] LABORATORYCLIA [id number] [address] ALT With P-5'-P [Catalytic activity/Vol] 29 U/L Normal 10-54 [facility] Comment on above: Order Comment: Speci men Type: BLOOD SPECIMENOrdering Facility: [facility] Address: [address] [place] [address] Performed By: #### 2 4321-2, 2777-1, , HFP ####[facility]ORATORYCLIA [id number] [address] AST With P-5'-P [Catalytic activity/Vol] 18 U/L Normal 14-40 [facility] Comment on above: Order Comment: Speci men Type: BLOOD SPECIMENOrdering Facility: [facility] Address: [address] [place] [address] Performed By: #### 2 4321-2, 277-, , HFP ####[facility] LABORATORYCLIA [id number] [place] [id number] [place] Bilirubin [Mass/Vol] 0.3 mg/dL Normal 0.2-1.3 [facility] Comment on above: Order Comment: Speci men Type: BLOOD SPECIMENOrdering Facility: [facility] Address: [address] [place], [place] [address] Performed By: #### 2 4321-2, 2776-05, , HFP ####[facility] LABORATORYCLIA [id number] [place] [address] [place] Bilirubin.conjugated [Mass/Vol] mg/dL Normal <0.2 [facility] Comment on above: Order Comment: Speci men Type: BLOOD SPECIMENOrdering Facility: [facility] Address: [address] [place] [address] Performed By: #### 2 4321-2, 2776-05, , HFP ####[facility]ORATORYCLIA [id number] [place] [address] [place] Protein [Mass/Vol] 6.4 g/dL Normal 6.3-8.0 [facility] Comment on above: Order Comment: Speci men Type: BLOOD SPECIMENOrdering Facility: [facility] Address: [address] [place] [address] Performed By: #### 2 4321-2, 2776-05, , HFP ####[facility]ORATORYCLIA [id number] [place] [address] [place] Magnesium SerPl-mCncon 08-07 Magnesium [Mass/Vol] 2.3 mg/dL Normal 1.7-2.3 [facility] Comment on above: Order Comment: Speci men Type: BLOOD SPECIMENOrdering Facility: [facility] Address: [address] [place] [address] Performed By: #### 2 4321-2, 2776-05, , HFP ####[facility] LABORATORYCLIA [id number] [place] [address] [place] NURSING PROGon 08-07-2021 NURSING PROG Normal [facility] Phosphate SerPl-mCncon 08-07 Phosphate [Mass/Vol] 3.5 mg/dL Normal 2.7-4.8 [facility] Comment on above: Order Comment: Speci men Type: BLOOD SPECIMENOrdering Facility: [facility] Address: [address] [place] [address] Performed By: #### 2 4321-2, 2776-05, , [facility] ####[facility] LABORATORYCLIA [id number] [address] [place] ANES POSTPROC EVALon 022 ANES POSTPROC EVAL Normal [facility] Basic metabolic 2000 panelon 08-06-2021 Anion gap [Moles/Vol] 11 mmol/L Normal 9-18 [facility] Comment on above: Order Comment: Speci men Type: BLOOD SPECIMENOrdering Facility: [facility] Address: [address] [place] [address] Performed By: #### 2 4321-2, 2776-05, ####[facility] HE[facility] SERVICESCLIA [id number] [place] [address] [place] Calcium [Mass/Vol] 8.2 mg/dL Low 8.5-10.2 [facility] Comment on above: Order Comment: Speci men Type: BLOOD SPECIMENOrdering Facility: [facility] Address: [address] [place] [address] Performed By: #### 2 4321-2, 2776-05, ####[facility]ORATORYCLIA [id number] [place] [address] [place] Chloride [Moles/Vol] 100 mmol/L Normal 97-105 [facility] Comment on above: Order Comment: Speci men Type: BLOOD SPECIMENOrdering Facility: [facility] Address: [address] [place], [place] [address] Performed By: #### 2 4321-2, 2776-05, ####[facility] HE[facility] SERVICESCLIA [id number] [place] [address] [place] [facility] CO2 [Moles/Vol] 23 mmol/L Normal 22-30 [facility] Comment on above: Order Comment: Speci men Type: BLOOD SPECIMENOrdering Facility: [facility] Address: [address] [place] [address] Performed By: #### 2 4321-2, 2776-05, ####[facility] SERVICESCLIA [id number] [place] [id number] [place] [facility] Creatinine [Mass/Vol] 0.55 mg/dL Low 0.73-1.22 [facility] Comment on above: Order Comment: Speci men Type: BLOOD SPECIMENOrdering Facility: [facility] Address: [address] [place] [address] Performed By: #### 2 4321-2, 2776-05, ####[facility] SERVICESCLIA [id number] [address] ESTIMATED GLOMERULAR FILTRATION RATE 107 mL/min/1.73m??? Normal >=60 [facility] Comment on above: Order Comment: Speci men Type: BLOOD SPECIMENOrdering Facility: [facility] Address: [address] [place] [address] Result Comment: Luzmaria mated Glomerular Filtration Rate [...] GFR. Performed By: #### 2 4321-2, 27711-04, ####[facility]ORATORYCLIA [id number] [place] [id number] [place] Glucose [Mass/Vol] 275 mg/dL High 74-99 [facility] Comment on above: Order Comment: Shira feldman Type: BLOOD SPECIMENOrdering Facility: [facility] Address: [address] [place], [place] [address] Result Comment: The [place] [employer] (ADA) [...] 1). Performed By: #### 2 4321-2, 2776-05, ####[facility]ORATORYCLIA [id number] [place] [address] [place] Potassium [Moles/Vol] 3.6 mmol/L Low 3.7-5.1 [facility] Comment on above: Order Comment: Shira feldman Type: BLOOD SPECIMENOrdering Facility: [facility] Address: [address] [place], [place] [phone] Performed By: #### 2 4321-2, 27711-04, ####[facility]ORATORYCLIA [id number] [place] [address] [place] Sodium [Moles/Vol] 134 mmol/L Low 136-144 [facility] Comment on above: Order Comment: Shira feldman Type: BLOOD SPECIMENOrdering Facility: [facility] Address: [address] [place], [place] [address] Performed By: #### 2 4321-2, 2776-05, ####[facility]ORATORYCLIA [id number] [place] [address] [place] Urea nitrogen [Mass/Vol] 29 mg/dL High 9-24 [facility] Comment on above: Order Comment: Speci men Type: BLOOD SPECIMENOrdering Facility: [facility] Address: [address] [place] [address] Performed By: #### 2 4321-2, 2777-1, 60715-6 ####[facility]ORATORYCLIA [id number] [place] [address] [place] CBC W Auto Differential pane l (Bld)on 08-06-2021 Basophils (Bld) [#/Vol] 0.03 10*3/uL Normal <0.11 [facility] Comment on above: Order Comment: Speci men Type: BLOOD SPECIMENOrdering Facility: [facility] Address: [address] [place] [address] Performed By: #### 5 7021-8 ####[facility]ORATORYCLIA [id number] [place] [address] [place] Basophils/100 WBC (Bld) 0.3 % Normal [facility] Comment on above: Order Comment: Speci men Type: BLOOD SPECIMENOrdering Facility: [facility] Address: [address] [place] [address] Performed By: #### 5 7021-8 ####[facility]ORATORYCLIA [id number] [address] STATES [facility] Differential cell count method Nom (Bld) Auto Normal [facility] Comment on above: Order Comment: Speci men Type: BLOOD SPECIMENOrdering Facility: [facility] Address: [address] [place] [address] Performed By: #### 5 7021-8 ####[facility]ORATORYCLIA [id number] [place] [address] [place] Eosinophils (Bld) [#/Vol] 0.18 10*3/uL Normal <0.46 [facility] Comment on above: Order Comment: Speci men Type: BLOOD SPECIMENOrdering Facility: [facility] Address: [address] [place] [address] Performed By: #### 5 7021-8 ####[facility]ORATORYCLIA [id number] [address] STATES [facility] Eosinophils/100 WBC (Bld) 1.6 % Normal [facility] Comment on above: Order Comment: Speci men Type: BLOOD SPECIMENOrdering Facility: [facility] Address: [address] [place] [address] Performed By: #### 5 7021-8 ####[facility]ORATORYCLIA [id number] [address] Erythrocyte distribution width (RBC) [Ratio] 17.9 % High 11.5-15.0 [facility] Comment on above: Order Comment: Speci men Type: BLOOD SPECIMENOrdering Facility: [facility] Address: [address] [place] [address] Performed By: #### 5 7021-8 ####[facility]ORATORYCLIA [id number] [address] Hematocrit (Bld) [Volume fraction] 27.6 % Low 39.0-51.0 [facility] Comment on above: Order Comment: Speci men Type: BLOOD SPECIMENOrdering Facility: [facility] Address: [address] [place] [address] Performed By: #### 5 7021-8 ####[facility]ORATORYCLIA [id number] [address] [place] Hemoglobin (Bld) [Mass/Vol] 8.5 g/dL Low 13.0-17.0 [facility] Comment on above: Order Comment: Speci men Type: BLOOD SPECIMENOrdering Facility: [facility] Address: [address] [place] [address] Performed By: #### 5 7021-8 ####[facility]ORATORYCLIA [id number] [address] [place] IMMATURE GRAN % 0.6 % Normal [facility] Comment on above: Order Comment: Speci men Type: BLOOD SPECIMENOrdering Facility: [facility] Address: [address] [place] [address] Performed By: #### 5 7021-8 ####[facility]ORATORYCLIA [id number] [address] IMMATURE GRAN ABS 0.07 k/uL Normal <0.10 [facility] Comment on above: Order Comment: Speci men Type: BLOOD SPECIMENOrdering Facility: [facility] Address: [address] [place] [address] Performed By: #### 5 7021-8 ####[facility]ORATORYCLIA [id number] [address] Lymphocytes (Bld) [#/Vol] 1.81 10*3/uL Normal 1.00-4.00 [facility] Comment on above: Order Comment: Speci men Type: BLOOD SPECIMENOrdering Facility: [facility] Address: [address] [place] [address] Performed By: #### 5 7021-8 ####[facility]ORATORYCLIA [id number] [address] Lymphocytes/100 WBC (Bld) 15.7 % Normal [facility] Comment on above: Order Comment: Speci men Type: BLOOD SPECIMENOrdering Facility: [facility] Address: [address] [place] [address] Performed By: #### 5 7021-8 ####[facility]ORATORYCLIA [id number] [address] STATES [facility] MCH (RBC) [Entitic mass] 28.6 pg Normal 26.0-34.0 [facility] Comment on above: Order Comment: Speci men Type: BLOOD SPECIMENOrdering Facility: [facility] Address: [address] [place] [address] Performed By: #### 5 7021-8 ####[facility]ORATORYCLIA [id number] [address] MCHC (RBC) [Mass/Vol] 30.8 g/dL Normal 30.5-36.0 [facility] Comment on above: Order Comment: Speci men Type: BLOOD SPECIMENOrdering Facility: [facility] Address: [address] [place] [address] Performed By: #### 5 7021-8 ####[facility]ORATORYCLIA [id number] [address] [place] MCV (RBC) [Entitic vol] 92.9 fL Normal 80.0-100.0 [facility] Comment on above: Order Comment: Speci men Type: BLOOD SPECIMENOrdering Facility: [facility] Address: [address] [place] [address] Performed By: #### 5 7021-8 ####[facility]ORATORYCLIA [id number] [address] [place] Monocytes (Bld) [#/Vol] 0.63 10*3/uL Normal <0.87 [facility] Comment on above: Order Comment: Speci men Type: BLOOD SPECIMENOrdering Facility: [facility] Address: [address] [place] [address] Performed By: #### 5 7021-8 ####[facility]ORATORYCLIA [id number] [address] Monocytes/100 WBC (Bld) 5.5 % Normal [facility] Comment on above: Order Comment: Speci men Type: BLOOD SPECIMENOrdering Facility: [facility] Address: [address] [place] [address] Performed By: #### 5 7021-8 ####[facility]ORATORYCLIA [id number] [address] [place] Neutrophils (Bld) [#/Vol] 8.78 10*3/uL High 1.45-7.50 [facility] Comment on above: Order Comment: Speci men Type: BLOOD SPECIMENOrdering Facility: [facility] Address: [address] [place] [address] Performed By: #### 5 7021-8 ####[facility]ORATORYCLIA [id number] [address] [place] Neutrophils/100 WBC (Bld) 76.3 % Normal [facility] Comment on above: Order Comment: Speci men Type: BLOOD SPECIMENOrdering Facility: [facility] Address: [address] [place] [address] Performed By: #### 5 7021-8 ####[facility]ORATORYCLIA [id number] [address] [place] Nucleated RBC (Bld) [#/Vol] 10*3/uL Normal <0.01 [facility] Comment on above: Order Comment: Speci men Type: BLOOD SPECIMENOrdering Facility: [facility] Address: [address] [place] [address] Performed By: #### 5 7021-8 ####[facility]ORATORYCLIA [id number] [address] Nucleated RBC/100 WBC (Bld) [Ratio] 0.0 /100 WBC Normal [facility] Comment on above: Order Comment: Speci men Type: BLOOD SPECIMENOrdering Facility: [facility] Address: [address] [place] [address] Performed By: #### 5 7021-8 ####[facility]ORATORYCLIA [id number] [address] [place] Platelet mean volume (Bld) [Entitic vol] 9.9 fL Normal 9.0-12.7 [facility] Comment on above: Order Comment: Speci men Type: BLOOD SPECIMENOrdering Facility: [facility] Address: [address] [place] [address] Performed By: #### 5 7021-8 ####[facility] LABORATORYCLIA [id number] [address] [place] Platelets (Bld) [#/Vol] 230 10*3/uL Normal 150-400 [facility] Comment on above: Order Comment: Speci men Type: BLOOD SPECIMENOrdering Facility: [facility] Address: [address] [place] [address] Performed By: #### 5 7021-8 ####[facility] LABORATORYCLIA [id number] [address] RBC (Bld) [#/Vol] 2.97 10*6/uL Low 4.20-6.00 [facility] Comment on above: Order Comment: Speci men Type: BLOOD SPECIMENOrdering Facility: [facility] Address: [address] [place] [address] Performed By: #### 5 7021-8 ####[facility] LABORATORYCLIA [id number] [address] WBC (Bld) [#/Vol] 11.50 10*3/uL High 3.70-11.00 [facility] Comment on above: Order Comment: Speci men Type: BLOOD SPECIMENOrdering Facility: [facility] Address: [address] [place] [address] Performed By: #### 5 7021-8 ####[facility] LABORATORYCLIA [id number] [address] CONSULT PROGon 08-06-2021 CONSULT PROG Normal [facility] Magnesium SerPl-mCncon 08-06 Magnesium [Mass/Vol] 1.9 mg/dL Normal 1.7-2.3 [facility] Comment on above: Order Comment: Speci men Type: BLOOD SPECIMENOrdering Facility: [facility] Address: [address] [place] [address] Performed By: #### 2 4321-2, 2777-1, 52845-7 ####[facility] LABORATORYCLIA [id number] [address] NURSING PROGon 08-06-2021 NURSING PROG Normal [facility] OPERATIVE NOon 08-06-2021 OPERATIVE NO Normal [facility] Phosphate SerPl-mCncon 08-06 Phosphate [Mass/Vol] 4.2 mg/dL Normal 2.7-4.8 [facility] Comment on above: Order Comment: Speci men Type: BLOOD SPECIMENOrdering Facility: [facility] Address: [address] [place], [place] [phone] Performed By: #### 2 4321-2, 2777-1, 98441-0 ####[facility] LABORATORYCLIA [id number] [place] [address] [place] ALLIED HEALTHon 08-05-2021 [...] on above: Performed By: #### 3 2355-0 ####[facility] LABORATORYCLIA [id number] [place] [address] [place] Bacteria Ur Culton Bacteria identified Cx Nom (U) CULTURE, URINE: No growth (<1,000 CFU/ml) Normal [facility] Comment on above: Performed By: #### 6 30-4 ####[facility] LABORATORYCLIA [id number] [place] [address] [place] Basic metabolic 2000 panelon 08-05-2021 Anion gap [Moles/Vol] 7 mmol/L Low 9-18 [facility] Comment on above: Order Comment: Speci men Type: BLOOD SPECIMENOrdering Facility: [facility] Address: [address] [place] [address] Performed By: #### 2 4321-2 ####[facility] LABORATORYCLIA [id number] [place] [address] [place] Calcium [Mass/Vol] 9.5 mg/dL Normal 8.5-10.2 [facility] Comment on above: Order Comment: Speci men Type: BLOOD SPECIMENOrdering Facility: [facility] Address: [address] [place] [address] Performed By: #### 2 4321-2 ####[facility] LABORATORYCLIA [id number] [address] [place] Chloride [Moles/Vol] 97 mmol/L Normal 97-105 [facility] Comment on above: Order Comment: Speci men Type: BLOOD SPECIMENOrdering Facility: [facility] Address: [address] [place] [address] Performed By: #### 2 4321-2 ####[facility] LABORATORYCLIA [id number] [address] [place] CO2 [Moles/Vol] 30 mmol/L Normal 22-30 [facility] Comment on above: Order Comment: Speci men Type: BLOOD SPECIMENOrdering Facility: [facility] Address: [address] [place] [address] Performed By: #### 2 4321-2 ####[facility] LABORATORYCLIA [id number] [address] [place] Creatinine [Mass/Vol] 0.61 mg/dL Low 0.73-1.22 [facility] Comment on above: Order Comment: Speci men Type: BLOOD SPECIMENOrdering Facility: [facility] Address: [address] [place] [address] Performed By: #### 2 4321-2 ####[facility] LABORATORYCLIA [id number] [address] ESTIMATED GLOMERULAR FILTRATION RATE 104 mL/min/1.73m??? Normal >=60 [facility] Comment on above: Order Comment: Speci men Type: BLOOD SPECIMENOrdering Facility: [facility] Address: [address] [place] [address] Result Comment: Luzmaria mated Glomerular Filtration Rate [...] actual GFR. Performed By: #### 2 4321-2 ####[facility] LABORATORYCLIA [id number] [place] [address] [place] Glucose [Mass/Vol] 124 mg/dL High 74-99 [facility] Comment on above: Order Comment: Shira feldman Type: BLOOD SPECIMENOrdering Facility: [facility] Address: [address] [place], [place] [phone] Result Comment: The [place] [employer] (ADA) [...] 2016.39(Suppl 1). Performed By: #### 2 4321-2 ####[facility] LABORATORYCLIA [id number] [place] [address] [place] Potassium [Moles/Vol] 4.9 mmol/L Normal 3.7-5.1 [facility] Comment on above: Order Comment: Shira feldman Type: BLOOD SPECIMENOrdering Facility: [facility] Address: [address] [place] [address] Performed By: #### 2 4321-2 ####[facility] LABORATORYCLIA [id number] [place] [address] [place] Sodium [Moles/Vol] 134 mmol/L Low 136-144 [facility] Comment on above: Order Comment: Shira feldman Type: BLOOD SPECIMENOrdering Facility: [facility] Address: [address] [place] [address] Performed By: #### 2 4321-2 ####[facility] LABORATORYCLIA [id number] [address] [place] [facility] Urea nitrogen [Mass/Vol] 40 mg/dL High 9-24 [facility] Comment on above: Order Comment: Speci men Type: BLOOD SPECIMENOrdering Facility: [facility] Address: [address] [place] [address] Performed By: #### 2 4321-2 ####[facility] LABORATORYCLIA [id number] [place] [address] [place] CBC W Auto Differential pane l (Bld)on 08-05-2021 Basophils (Bld) [#/Vol] 0.04 10*3/uL Normal <0.11 [facility] Comment on above: Order Comment: Speci men Type: BLOOD SPECIMENOrdering Facility: [facility] Address: [address] [place] [address] Performed By: #### 5 7021-8 ####[facility] LABORATORYCLIA [id number] [address] [place] Basophils/100 WBC (Bld) 0.3 % Normal [facility] Comment on above: Order Comment: Speci men Type: BLOOD SPECIMENOrdering Facility: [facility] Address: [address] [place] [address] Performed By: #### 5 7021-8 ####[facility] LABORATORYCLIA [id number] [address] STATES [facility] Differential cell count method Nom (Bld) Auto Normal [facility] Comment on above: Order Comment: Speci men Type: BLOOD SPECIMENOrdering Facility: [facility] Address: [address] [place] [address] Performed By: #### 5 7021-8 ####[facility] LABORATORYCLIA [id number] [place] [address] [place] Eosinophils (Bld) [#/Vol] 0.42 10*3/uL Normal <0.46 [facility] Comment on above: Order Comment: Speci men Type: BLOOD SPECIMENOrdering Facility: [facility] Address: [address] [place] [address] Performed By: #### 5 7021-8 ####[facility]ORATORYCLIA [id number] [address] Eosinophils/100 WBC (Bld) 3.6 % Normal [facility] Comment on above: Order Comment: Speci men Type: BLOOD SPECIMENOrdering Facility: [facility] Address: [address] [place] [address] Performed By: #### 5 7021-8 ####[facility] LABORATORYCLIA [id number] [address] [place] Erythrocyte distribution width (RBC) [Ratio] 17.9 % High 11.5-15.0 [facility] Comment on above: Order Comment: Speci men Type: BLOOD SPECIMENOrdering Facility: [facility] Address: [address] [place] [address] Performed By: #### 5 7021-8 ####[facility]ORATORYCLIA [id number] [address] [place] Hematocrit (Bld) [Volume fraction] 30.8 % Low 39.0-51.0 [facility] Comment on above: Order Comment: Speci men Type: BLOOD SPECIMENOrdering Facility: [facility] Address: [address] [place] [address] Performed By: #### 5 7021-8 ####[facility] LABORATORYCLIA [id number] [address] [place] Hemoglobin (Bld) [Mass/Vol] 9.6 g/dL Low 13.0-17.0 [facility] Comment on above: Order Comment: Speci men Type: BLOOD SPECIMENOrdering Facility: [facility] Address: [address] [place] [address] Performed By: #### 5 7021-8 ####[facility]ORATORYCLIA [id number] [address] IMMATURE GRAN % 0.5 % Normal [facility] Comment on above: Order Comment: Speci men Type: BLOOD SPECIMENOrdering Facility: [facility] Address: [address] [place] [address] Performed By: #### 5 7021-8 ####[facility]ORATORYCLIA [id number] [address] IMMATURE GRAN ABS 0.06 k/uL Normal <0.10 [facility] Comment on above: Order Comment: Speci men Type: BLOOD SPECIMENOrdering Facility: [facility] Address: [address] [place] [address] Performed By: #### 5 7021-8 ####[facility] LABORATORYCLIA [id number] [address] [place] Lymphocytes (Bld) [#/Vol] 2.17 10*3/uL Normal 1.00-4.00 [facility] Comment on above: Order Comment: Speci men Type: BLOOD SPECIMENOrdering Facility: [facility] Address: [address] [place] [address] Performed By: #### 5 7021-8 ####[facility] LABORATORYCLIA [id number] [address] Lymphocytes/100 WBC (Bld) 18.7 % Normal [facility] Comment on above: Order Comment: Speci men Type: BLOOD SPECIMENOrdering Facility: [facility] Address: [address] [place] [address] Performed By: #### 5 7021-8 ####[facility]ORATORYCLIA [id number] [address] [place] MCH (RBC) [Entitic mass] 28.9 pg Normal 26.0-34.0 [facility] Comment on above: Order Comment: Speci men Type: BLOOD SPECIMENOrdering Facility: [facility] Address: [address] [place] [address] Performed By: #### 5 7021-8 ####[facility]ORATORYCLIA [id number] [address] STATES [facility] MCHC (RBC) [Mass/Vol] 31.2 g/dL Normal 30.5-36.0 [facility] Comment on above: Order Comment: Speci men Type: BLOOD SPECIMENOrdering Facility: [facility] Address: [address] [place] [address] Performed By: #### 5 7021-8 ####[facility] LABORATORYCLIA [id number] [address] MCV (RBC) [Entitic vol] 92.8 fL Normal 80.0-100.0 [facility] Comment on above: Order Comment: Speci men Type: BLOOD SPECIMENOrdering Facility: [facility] Address: [address] [place] [address] Performed By: #### 5 7021-8 ####[facility] LABORATORYCLIA [id number] [address] STATES OF [facility] Monocytes (Bld) [#/Vol] 0.71 10*3/uL Normal <0.87 [facility] Comment on above: Order Comment: Speci men Type: BLOOD SPECIMENOrdering Facility: [facility] Address: [address] [place] [address] Performed By: #### 5 7021-8 ####[facility]ORATORYCLIA [id number] [address] Monocytes/100 WBC (Bld) 6.1 % Normal [facility] Comment on above: Order Comment: Speci men Type: BLOOD SPECIMENOrdering Facility: [facility] Address: [address] [place] [address] Performed By: #### 5 7021-8 ####[facility]ORATORYCLIA [id number] [address] [place] Neutrophils (Bld) [#/Vol] 8.19 10*3/uL High 1.45-7.50 [facility] Comment on above: Order Comment: Speci men Type: BLOOD SPECIMENOrdering Facility: [facility] Address: [address] [address] Performed By: #### 5 7021-8 ####[facility]ORATORYCLIA [id number] [address] Neutrophils/100 WBC (Bld) 70.8 % Normal [facility] Comment on above: Order Comment: Speci men Type: BLOOD SPECIMENOrdering Facility: [facility] Address: [address] [place] [address] Performed By: #### 5 7021-8 ####[facility]ORATORYCLIA [id number] [address] Nucleated RBC (Bld) [#/Vol] 10*3/uL Normal <0.01 [facility] Comment on above: Order Comment: Speci men Type: BLOOD SPECIMENOrdering Facility: [facility] Address: [address] [place] [address] Performed By: #### 5 7021-8 ####[facility]ORATORYCLIA [id number] [address] Nucleated RBC/100 WBC (Bld) [Ratio] 0.0 /100 WBC Normal [facility] Comment on above: Order Comment: Speci men Type: BLOOD SPECIMENOrdering Facility: [facility] Address: [address] [place] [address] Performed By: #### 5 7021-8 ####[facility]ORATORYCLIA [id number] [address] Platelet mean volume (Bld) [Entitic vol] 9.6 fL Normal 9.0-12.7 [facility] Comment on above: Order Comment: Speci men Type: BLOOD SPECIMENOrdering Facility: [facility] Address: [address] [place] [address] Performed By: #### 5 7021-8 ####[facility]ORATORYCLIA [id number] [address] Platelets (Bld) [#/Vol] 339 10*3/uL Normal 150-400 [facility] Comment on above: Order Comment: Speci men Type: BLOOD SPECIMENOrdering Facility: [facility] Address: [address] [place] [address] Performed By: #### 5 7021-8 ####[facility]ORATORYCLIA [id number] [place] [address] [place] RBC (Bld) [#/Vol] 3.32 10*6/uL Low 4.20-6.00 [facility] Comment on above: Order Comment: Speci men Type: BLOOD SPECIMENOrdering Facility: [facility] Address: [address] [place] [address] Performed By: #### 5 7021-8 ####[facility]ORATORYCLIA [id number] [address] WBC (Bld) [#/Vol] 11.59 10*3/uL High 3.70-11.00 [facility] Comment on above: Order Comment: Speci men Type: BLOOD SPECIMENOrdering Facility: [facility] Address: [address] [place] [address] Performed By: #### 5 7021-8 ####[facility]ORATORYCLIA [id number] [address] [place] BRAIN WO IVCONon 08-06-[address] BRAIN WO IVCON Normal [facility] Magnesium SerPl-mCncon 08-05 Magnesium [Mass/Vol] 2.2 mg/dL Normal 1.7-2.3 [facility] Comment on above: Order Comment: Speci men Type: BLOOD SPECIMENOrdering Facility: [facility] Address: [address] [place] [address] Performed By: #### 1 9123-9, 2777-1 ####[facility]ORATORYCLIA [id number] [address] [place] NURSING PROGon 08-05-2021 NURSING PROG Normal [facility] NURSING PROG Normal [facility] NUTRITIONon 08-05-2021 NUTRITION Normal [facility] OPERATIVE NOon 08-05-2021 OPERATIVE NO Normal [facility] Phosphate SerPl-mCncon 08-05 Phosphate [Mass/Vol] 4.6 mg/dL Normal 2.7-4.8 [facility] Comment on above: Order Comment: Speci men Type: BLOOD SPECIMENOrdering Facility: [facility] Address: [address] [place] [address] Performed By: #### 1 9123-9, 2777-1 ####[facility]ORATORYCLIA [id number] [address] THERAPY NTon 08-05-2021 THERAPY NT Normal [facility] THERAPY NT Normal [facility] Urinalysis complete panel (U )on 08-05-2021 Bilirubin Ql (U) Negative Normal Negative [facility] Comment on above: Order Comment: Speci men Type: URINE SPECIMENOrdering Facility: [facility] Address: [address] [place] [address] Performed By: #### 2 4356-8 ####[facility]ORATORYCLIA [id number] [address] [place] Clarity (Unsp spec) Clear Normal Clear [facility] Comment on above: Order Comment: Speci men Type: URINE SPECIMENOrdering Facility: [facility] Address: [address] [place] [address] Performed By: #### 2 4356-8 ####[facility]ORATORYCLIA [id number] [address] [place] Color (U) Light Yellow Normal yellow [facility] Comment on above: Order Comment: Speci men Type: URINE SPECIMENOrdering Facility: [facility] Address: [address] [place] [address] Performed By: #### 2 4356-8 ####[facility]ORATORYCLIA [id number] [address] [place] Epithelial cells LM.HPF (Urine sed) [#/Area] Few Abnormal None Seen [facility] Comment on above: Order Comment: Speci men Type: URINE SPECIMENOrdering Facility: [facility] Address: [address] [place] [address] Performed By: #### 2 4356-8 ####[facility]ORATORYCLIA [id number] [address] Glucose Test strip (U) [Mass/Vol] Negative Normal Negative [facility] Comment on above: Order Comment: Speci men Type: URINE SPECIMENOrdering Facility: [facility] Address: [address] [place] [address] Performed By: #### 2 4356-8 ####[facility]ATORYCLIA [id number] [address] Hemoglobin Ql (U) Negative Normal Negative [facility] Comment on above: Order Comment: Speci men Type: URINE SPECIMENOrdering Facility: [facility] Address: [address] [place] [address] Performed By: #### 2 4356-8 ####[facility]ORATORYCLIA [id number] [address] Hyaline casts (Urine sed) [#/Area] 1-3 /LPF Abnormal 0 /LPF [facility] Comment on above: Order Comment: Speci men Type: URINE SPECIMENOrdering Facility: [facility] Address: [address] [place] [address] Performed By: #### 2 4356-8 ####[facility]ORATORYCLIA [id number] [address] Ketones Ql (U) Negative Normal Negative [facility] Comment on above: Order Comment: Speci men Type: URINE SPECIMENOrdering Facility: [facility] Address: [address] [place] [address] Performed By: #### 2 4356-8 ####[facility] LABORATORYCLIA [id number] [place] [address] Leukocyte esterase Test strip Ql (U) Negative Normal Negative [facility] Comment on above: Order Comment: Speci men Type: URINE SPECIMENOrdering Facility: [facility] Address: [address] [place] [address] Performed By: #### 2 4356-8 ####[facility]ORATORYCLIA [id number] [address] STATES [facility] Nitrite Ql (U) Negative Normal Negative [facility] Comment on above: Order Comment: Speci men Type: URINE SPECIMENOrdering Facility: [facility] Address: [address] [place] [address] Performed By: #### 2 4356-8 ####[facility]ORATORYCLIA [id number] [address] STATES [facility] pH (U) 6.0 [pH] Normal 5.0-8.0 [facility] Comment on above: Order Comment: Speci men Type: URINE SPECIMENOrdering Facility: [facility] Address: [address] [place] [address] Performed By: #### 2 4356-8 ####[facility]ORATORYCLIA [id number] [address] Protein (U) [Mass/Vol] Negative Normal Negative [facility] Comment on above: Order Comment: Speci men Type: URINE SPECIMENOrdering Facility: [facility] Address: [address] [place] [address] Performed By: #### 2 4356-8 ####[facility]ORATORYCLIA [id number] [address] RBC LM.HPF (Urine sed) [#/Area] 0-3 /HPF Normal 0-3 /HPF [facility] Comment on above: Order Comment: Speci men Type: URINE SPECIMENOrdering Facility: [facility] Address: [address] [place] [address] Performed By: #### 2 4356-8 ####[facility]ORATORYCLIA [id number] [address] [place] Specific gravity (U) [Rel density] 1.015 Normal 1.005-1.030 [facility] Comment on above: Order Comment: Speci men Type: URINE SPECIMENOrdering Facility: [facility] Address: [address] [place] [address] Performed By: #### 2 4356-8 ####[facility]ORATORYCLIA [id number] [address] [place] Urobilinogen Ql (U) Normal Normal Negative [facility] Comment on above: Order Comment: Speci men Type: URINE SPECIMENOrdering Facility: [facility] Address: [address] [place] [address] Performed By: #### 2 4356-8 ####[facility]ORATORYCLIA [id number] [address] [place] WBC LM.HPF (Urine sed) [#/Area] 0-5 /HPF Normal 0-5 /HPF [facility] Comment on above: Order Comment: Speci men Type: URINE SPECIMENOrdering Facility: [facility] Address: [address] [place] [address] Performed By: #### 2 4356-8 ####[facility]ORATORYCLIA [id number] [address] [place] XR ABDOMEN 1V SUPINEon [...] on above: Performed By: #### 6 00-7 ####[facility]ORATORYCLIA [id number] [address] Bacteria identified Cx Nom (Bld) CULTURE, BLOOD: No growth 5 days Normal [facility] Comment on above: Performed By: #### 6 00-7 ####[facility]ORATORYCLIA [id number] [address] OF [facility] CBC W Auto Differential pane l (Bld)on 08-04-2021 Basophils (Bld) [#/Vol] 0.05 10*3/uL Normal <0.11 [facility] Comment on above: Order Comment: Speci men Type: BLOOD SPECIMENOrdering Facility: [facility] Address: [address] [place] [address] Performed By: #### 5 7021-8 ####[facility]ATORYCLIA [id number] [address] Basophils/100 WBC (Bld) 0.4 % Normal [facility] Comment on above: Order Comment: Speci men Type: BLOOD SPECIMENOrdering Facility: [facility] Address: [address] [place] [address] Performed By: #### 5 7021-8 ####[facility]ORATORYCLIA [id number] [address] Differential cell count method Nom (Bld) Auto Normal [facility] Comment on above: Order Comment: Speci men Type: BLOOD SPECIMENOrdering Facility: [facility] Address: [address] [place] [address] Performed By: #### 5 7021-8 ####[facility]ORATORYCLIA [id number] [address] OF [facility] Eosinophils (Bld) [#/Vol] 0.21 10*3/uL Normal <0.46 [facility] Comment on above: Order Comment: Speci men Type: BLOOD SPECIMENOrdering Facility: [facility] Address: [address] [place] [address] Performed By: #### 5 7021-8 ####[facility]ORATORYCLIA [id number] [address] STATES [facility] Eosinophils/100 WBC (Bld) 1.7 % Normal [facility] Comment on above: Order Comment: Speci men Type: BLOOD SPECIMENOrdering Facility: [facility] Address: [address] [place] [address] Performed By: #### 5 7021-8 ####[facility]ATORYCLIA [id number] [address] [place] Erythrocyte distribution width (RBC) [Ratio] 18.1 % High 11.5-15.0 [facility] Comment on above: Order Comment: Speci men Type: BLOOD SPECIMENOrdering Facility: [facility] Address: [address] [place] [address] Performed By: #### 5 7021-8 ####[facility]ORATORYCLIA [id number] [address] Hematocrit (Bld) [Volume fraction] 32.0 % Low 39.0-51.0 [facility] Comment on above: Order Comment: Speci men Type: BLOOD SPECIMENOrdering Facility: [facility] Address: [address] [place] [address] Performed By: #### 5 7021-8 ####[facility]ORATORYCLIA [id number] [address] [place] Hemoglobin (Bld) [Mass/Vol] 10.0 g/dL Low 13.0-17.0 [facility] Comment on above: Order Comment: Speci men Type: BLOOD SPECIMENOrdering Facility: [facility] Address: [address] [place] [address] Performed By: #### 5 7021-8 ####[facility]ORATORYCLIA [id number] [address] [place] IMMATURE GRAN % 0.6 % Normal [facility] Comment on above: Order Comment: Speci men Type: BLOOD SPECIMENOrdering Facility: [facility] Address: [address] [place] [address] Performed By: #### 5 7021-8 ####[facility]ORATORYCLIA [id number] [address] IMMATURE GRAN ABS 0.08 k/uL Normal <0.10 [facility] Comment on above: Order Comment: Speci men Type: BLOOD SPECIMENOrdering Facility: [facility] Address: [address] [place] [address] Performed By: #### 5 7021-8 ####[facility]ORATORYCLIA [id number] [address] Lymphocytes (Bld) [#/Vol] 2.55 10*3/uL Normal 1.00-4.00 [facility] Comment on above: Order Comment: Speci men Type: BLOOD SPECIMENOrdering Facility: [facility] Address: [address] [place] [address] Performed By: #### 5 7021-8 ####[facility]ORATORYCLIA [id number] [address] Lymphocytes/100 WBC (Bld) 20.5 % Normal [facility] Comment on above: Order Comment: Speci men Type: BLOOD SPECIMENOrdering Facility: [facility] Address: [address] [place] [address] Performed By: #### 5 7021-8 ####[facility]ORATORYCLIA [id number] [address] MCH (RBC) [Entitic mass] 28.9 pg Normal 26.0-34.0 [facility] Comment on above: Order Comment: Speci men Type: BLOOD SPECIMENOrdering Facility: [facility] Address: [address] [place] [address] Performed By: #### 5 7021-8 ####[facility]ORATORYCLIA [id number] [address] MCHC (RBC) [Mass/Vol] 31.3 g/dL Normal 30.5-36.0 [facility] Comment on above: Order Comment: Speci men Type: BLOOD SPECIMENOrdering Facility: [facility] Address: [address] [place] [address] Performed By: #### 5 7021-8 ####[facility]ORATORYCLIA [id number] [address] [place] MCV (RBC) [Entitic vol] 92.5 fL Normal 80.0-100.0 [facility] Comment on above: Order Comment: Speci men Type: BLOOD SPECIMENOrdering Facility: [facility] Address: [address] [place] [address] Performed By: #### 5 7021-8 ####[facility]ORATORYCLIA [id number] [address] [place] Monocytes (Bld) [#/Vol] 0.85 10*3/uL Normal <0.87 [facility] Comment on above: Order Comment: Speci men Type: BLOOD SPECIMENOrdering Facility: [facility] Address: [address] [place] [address] Performed By: #### 5 7021-8 ####[facility]ORATORYCLIA [id number] [address] OF [facility] Monocytes/100 WBC (Bld) 6.8 % Normal [facility] Comment on above: Order Comment: Speci men Type: BLOOD SPECIMENOrdering Facility: [facility] Address: [address] [place] [address] Performed By: #### 5 7021-8 ####[facility]ORATORYCLIA [id number] [address] [place] Neutrophils (Bld) [#/Vol] 8.68 10*3/uL High 1.45-7.50 [facility] Comment on above: Order Comment: Speci men Type: BLOOD SPECIMENOrdering Facility: [facility] Address: [address] [place] [address] Performed By: #### 5 7021-8 ####[facility]ORATORYCLIA [id number] [address] Neutrophils/100 WBC (Bld) 70.0 % Normal [facility] Comment on above: Order Comment: Speci men Type: BLOOD SPECIMENOrdering Facility: [facility] Address: [address] [place] [address] Performed By: #### 5 7021-8 ####[facility]ORATORYCLIA [id number] [address] Nucleated RBC (Bld) [#/Vol] 10*3/uL Normal <0.01 [facility] Comment on above: Order Comment: Speci men Type: BLOOD SPECIMENOrdering Facility: [facility] Address: [address] [place] [address] Performed By: #### 5 7021-8 ####[facility]ORATORYCLIA [id number] [address] STATES [facility] Nucleated RBC/100 WBC (Bld) [Ratio] 0.0 /100 WBC Normal [facility] Comment on above: Order Comment: Speci men Type: BLOOD SPECIMENOrdering Facility: [facility] Address: [address] [place] [address] Performed By: #### 5 7021-8 ####[facility]ORATORYCLIA [id number] [address] [place] Platelet mean volume (Bld) [Entitic vol] 10.0 fL Normal 9.0-12.7 [facility] Comment on above: Order Comment: Speci men Type: BLOOD SPECIMENOrdering Facility: [facility] Address: [address] [place] [address] Performed By: #### 5 7021-8 ####[facility]ORATORYCLIA [id number] [address] [place] Platelets (Bld) [#/Vol] 393 10*3/uL Normal 150-400 [facility] Comment on above: Order Comment: Speci men Type: BLOOD SPECIMENOrdering Facility: [facility] Address: [address] [place] [address] Performed By: #### 5 7021-8 ####[facility]ORATORYCLIA [id number] [address] RBC (Bld) [#/Vol] 3.46 10*6/uL Low 4.20-6.00 [facility] Comment on above: Order Comment: Speci men Type: BLOOD SPECIMENOrdering Facility: [facility] Address: [address] [place] [address] Performed By: #### 5 7021-8 ####[facility] LABORATORYCLIA [id number] [address] WBC (Bld) [#/Vol] 12.42 10*3/uL High 3.70-11.00 [facility] Comment on above: Order Comment: Speci men Type: BLOOD SPECIMENOrdering Facility: [facility] Address: [address] [place], [place] [address] Performed By: #### 5 7021-8 ####[facility] LABORATORYCLIA [id number] [address] BRAIN WO IVCONon 08-05-[address] BRAIN WO IVCON Normal [facility] Lactate (Bld) [Moles/Vol]on 08-04-2021 Lactate [Moles/Vol] 1.4 mmol/L Normal 0.5-2.2 [facility] Comment on above: Order Comment: Speci men Type: BLOOD SPECIMENOrdering Facility: [facility] Address: [address] [place] [address] Performed By: #### 3 2693-4 ####[facility] LABORATORYCLIA [id number] [address] PROCALCITONIN (LAB)on 2021 Procalcitonin [Mass/Vol] 0.08 ng/mL Normal <0.09 [facility] Comment on above: Order Comment: Speci men Type: BLOOD SPECIMENOrdering Facility: [facility] Address: [facility] [place] [address] Result Comment: For a guided interpretation of test results, please visit the Change in Procalcitonin Calculator, [email or web address]. Performed By: #### P ROCAL ####[facility] LABORATORYCLIA [id number] [address] Prealbumin [Mass/Vol]on 07-07 Prealbumin Nephelometry [Mass/Vol] 35 mg/dL Normal [facility] Comment on above: Order Comment: Speci men Type: BLOOD SPECIMENOrdering Facility: [facility] Address: [address] [place] [address] Performed By: #### 1 4338-8 ####[facility] LABORATORYCLIA [id number] [address] SARS-CoV-2 RNA Resp Ql MEGAN+p robeon 08-04-2021 SARS-CoV-2 (COVID-19) RNA MEGAN+probe Ql (Resp) COVID 19 RESULT: SARS-CoV-2 (Agent of COVID-19) Not Detected by RT-PCR or equivalent method. This test has been authorized by FDA under an Emergency Use Authorization (EUA). Normal [facility] Comment on above: Performed By: #### 9 4500-6 ####[facility] LABORATORYCLIA [id number] [address] STATES OF [facility] TYPE AND SCREENon 08-04-2021 ABO O Normal [facility] Comment on above: Order Comment: Speci men Type: BLOOD SPECIMENOrdering Facility: [facility] Address: [address] [place] [address] Performed By: #### T SCR ####[facility] BLOOD BANKCLIA [id number] [address] HISTORICAL AB SCR STATUS Negative Normal [facility] Comment on above: Order Comment: Speci men Type: BLOOD SPECIMENOrdering Facility: [facility] Address: [address] [place] [address] Performed By: #### T SCR ####[facility] BLOOD BANKCLIA [id number] [address] Rh Nom (Bld) Positive Normal [facility] Comment on above: Order Comment: Speci men Type: BLOOD SPECIMENOrdering Facility: [facility] Address: [address] [place] [address] Performed By: #### T SCR ####[facility] BLOOD BANKCLIA [id number] [address] TYPE AND SCREEN EXPIRATION 08/07/2021 23:59 Normal [facility] Comment on above: Order Comment: Speci men Type: BLOOD SPECIMENOrdering Facility: [facility] Address: [address] [place] [address] Performed By: #### T SCR ####[facility] BLOOD BANKCLIA [id number] [address] aPTT PPPon 08-04-2021 aPTT Coag (PPP) [Time] 51.8 s High 23.0-32.[address] [facility] Comment on above: Order Comment: Speci men Type: BLOOD SPECIMENOrdering Facility: [facility] Address: [address] [place] [address] Performed By: #### 1 4979-9 ####[facility] LABORATORYCLIA [id number] [address] Basic metabolic 2000 panelon 08-03-2021 Anion gap [Moles/Vol] 9 mmol/L Normal 9-18 [facility] Comment on above: Order Comment: Speci men Type: BLOOD SPECIMENOrdering Facility: [facility] Address: [address] [place] [address] Performed By: #### 2 4321-2, 61569-0, 2777-1 ####[facility] LABORATORYCLIA [id number] [address] Calcium [Mass/Vol] 9.3 mg/dL Normal 8.5-10.2 [facility] Comment on above: Order Comment: Speci men Type: BLOOD SPECIMENOrdering Facility: [facility] Address: [address] [place] [address] Performed By: #### 2 4321-2, , 2776-05 ####[facility] LABORATORYCLIA [id number] [place] [address] [place] Chloride [Moles/Vol] 97 mmol/L Normal 97-105 [facility] Comment on above: Order Comment: Speci men Type: BLOOD SPECIMENOrdering Facility: [facility] Address: [address] [place] [address] Performed By: #### 2 4321-2, , 2776-05 ####[facility] LABORATORYCLIA [id number] [place] [address] [place] CO2 [Moles/Vol] 27 mmol/L Normal 22-30 [facility] Comment on above: Order Comment: Speci men Type: BLOOD SPECIMENOrdering Facility: [facility] Address: [address] [place] [address] Performed By: #### 2 4321-2, , 2776-05 ####[facility] LABORATORYCLIA [id number] [address] [place] Creatinine [Mass/Vol] 0.63 mg/dL Low 0.73-1.22 [facility] Comment on above: Order Comment: Speci men Type: BLOOD SPECIMENOrdering Facility: [facility] Address: [address] [place] [address] Performed By: #### 2 4321-2, , 2776-05 ####[facility] LABORATORYCLIA [id number] [address] ESTIMATED GLOMERULAR FILTRATION RATE 103 mL/min/1.73m??? Normal >=60 [facility] Comment on above: Order Comment: Speci men Type: BLOOD SPECIMENOrdering Facility: [facility] Address: [address] [place] [address] Result Comment: Luzmaria mated Glomerular Filtration Rate [...] Performed By: #### 2 4321-2, , 2776-05 ####[facility] COUNTYIA [id number] [place] [address] [place] Glucose [Mass/Vol] 136 mg/dL High 74-99 [facility] Comment on above: Order Comment: Shira feldman Type: BLOOD SPECIMENOrdering Facility: [facility] Address: [address] [place] [address] Result Comment: The [employer] (ADA) [...] Performed By: #### 2 4321-2, , 2776-05 ####[facility] LABORATORYCLIA [id number] [place] [id number] [place] Potassium [Moles/Vol] 4.1 mmol/L Normal 3.7-5.1 [facility] Comment on above: Order Comment: Shira feldman Type: BLOOD SPECIMENOrdering Facility: [facility] Address: [address] [place] [id number] Performed By: #### 2 4321-2, , 2776-05 ####[facility] LABORATORYCLIA [id number] [place] [address] [place] Sodium [Moles/Vol] 133 mmol/L Low 136-144 [facility] Comment on above: Order Comment: Speci men Type: BLOOD SPECIMENOrdering Facility: [facility] Address: [address] [place] [address] Performed By: #### 2 4321-2, 04745-1, 2777-1 ####[facility] LABORATORYCLIA [id number] [address] [place] Urea nitrogen [Mass/Vol] 40 mg/dL High 9-24 [facility] Comment on above: Order Comment: Speci men Type: BLOOD SPECIMENOrdering Facility: [facility] Address: [address] [place] [address] Performed By: #### 2 4321-2, , 2777 ####[facility] LABORATORYCLIA [id number] [address] OF [facility] CASE MANAGEMon 08-03-2021 CASE MANAGEM Normal [facility] CBC W Auto Differential pane l (Bld)on 08-03-2021 Basophils (Bld) [#/Vol] 0.06 10*3/uL Normal <0.11 [facility] Comment on above: Order Comment: Speci men Type: BLOOD SPECIMENOrdering Facility: [facility] Address: [address] [place] [address] Performed By: #### 5 7021-8 ####[facility] LABORATORYCLIA [id number] [address] [place] Basophils/100 WBC (Bld) 0.5 % Normal [facility] Comment on above: Order Comment: Speci men Type: BLOOD SPECIMENOrdering Facility: [facility] Address: [address] [place] [address] Performed By: #### 5 7021-8 ####[facility] LABORATORYCLIA [id number] [place] [address] [place] Differential cell count method Nom (Bld) Auto Normal [facility] Comment on above: Order Comment: Speci men Type: BLOOD SPECIMENOrdering Facility: [facility] Address: [address] [place] [address] Performed By: #### 5 7021-8 ####[facility] LABORATORYCLIA [id number] [address] [place] Eosinophils (Bld) [#/Vol] 0.23 10*3/uL Normal <0.46 [facility] Comment on above: Order Comment: Speci men Type: BLOOD SPECIMENOrdering Facility: [facility] Address: [address] [place] [address] Performed By: #### 5 7021-8 ####[facility] LABORATORYCLIA [id number] [address] Eosinophils/100 WBC (Bld) 1.8 % Normal [facility] Comment on above: Order Comment: Speci men Type: BLOOD SPECIMENOrdering Facility: [facility] Address: [address] [place] [address] Performed By: #### 5 7021-8 ####[facility] LABORATORYCLIA [id number] [address] Erythrocyte distribution width (RBC) [Ratio] 17.6 % High 11.5-15.0 [facility] Comment on above: Order Comment: Speci men Type: BLOOD SPECIMENOrdering Facility: [facility] Address: [address] [place] [address] Performed By: #### 5 7021-8 ####[facility] LABORATORYCLIA [id number] [address] Hematocrit (Bld) [Volume fraction] 30.7 % Low 39.0-51.0 [facility] Comment on above: Order Comment: Speci men Type: BLOOD SPECIMENOrdering Facility: [facility] Address: [address] [place] [address] Performed By: #### 5 7021-8 ####[facility] LABORATORYCLIA [id number] [address] OF [facility] Hemoglobin (Bld) [Mass/Vol] 9.3 g/dL Low 13.0-17.0 [facility] Comment on above: Order Comment: Speci men Type: BLOOD SPECIMENOrdering Facility: [facility] Address: [address] [place] [address] Performed By: #### 5 7021-8 ####[facility] LABORATORYCLIA [id number] [address] IMMATURE GRAN % 0.6 % Normal [facility] Comment on above: Order Comment: Speci men Type: BLOOD SPECIMENOrdering Facility: [facility] Address: [address] [place] [address] Performed By: #### 5 7021-8 ####[facility] LABORATORYCLIA [id number] [address] IMMATURE GRAN ABS 0.08 k/uL Normal <0.10 [facility] Comment on above: Order Comment: Speci men Type: BLOOD SPECIMENOrdering Facility: [facility] Address: [address] [place] [address] Performed By: #### 5 7021-8 ####[facility] LABORATORYCLIA [id number] [address] Lymphocytes (Bld) [#/Vol] 2.45 10*3/uL Normal 1.00-4.00 [facility] Comment on above: Order Comment: Speci men Type: BLOOD SPECIMENOrdering Facility: [facility] Address: [address] [place] [address] Performed By: #### 5 7021-8 ####[facility] LABORATORYCLIA [id number] [address] Lymphocytes/100 WBC (Bld) 19.7 % Normal [facility] Comment on above: Order Comment: Speci men Type: BLOOD SPECIMENOrdering Facility: [facility] Address: [address] [place] [address] Performed By: #### 5 7021-8 ####[facility] LABORATORYCLIA [id number] [address] MCH (RBC) [Entitic mass] 28.2 pg Normal 26.0-34.0 [facility] Comment on above: Order Comment: Speci men Type: BLOOD SPECIMENOrdering Facility: [facility] Address: [address] [place] [address] Performed By: #### 5 7021-8 ####[facility] LABORATORYCLIA [id number] [address] MCHC (RBC) [Mass/Vol] 30.3 g/dL Low 30.5-36.0 [facility] Comment on above: Order Comment: Speci men Type: BLOOD SPECIMENOrdering Facility: [facility] Address: [address] [place] [address] Performed By: #### 5 7021-8 ####[facility] LABORATORYCLIA [id number] [address] MCV (RBC) [Entitic vol] 93.0 fL Normal 80.0-100.0 [facility] Comment on above: Order Comment: Speci men Type: BLOOD SPECIMENOrdering Facility: [facility] Address: [address] [place] [address] Performed By: #### 5 7021-8 ####[facility] LABORATORYCLIA [id number] [address] Monocytes (Bld) [#/Vol] 0.72 10*3/uL Normal <0.87 [facility] Comment on above: Order Comment: Speci men Type: BLOOD SPECIMENOrdering Facility: [facility] Address: [address] [place] [address] Performed By: #### 5 7021-8 ####[facility] LABORATORYCLIA [id number] [address] Monocytes/100 WBC (Bld) 5.8 % Normal [facility] Comment on above: Order Comment: Speci men Type: BLOOD SPECIMENOrdering Facility: [facility] Address: [address] [place] [address] Performed By: #### 5 7021-8 ####[facility] LABORATORYCLIA [id number] [address] [place] Neutrophils (Bld) [#/Vol] 8.92 10*3/uL High 1.45-7.50 [facility] Comment on above: Order Comment: Speci men Type: BLOOD SPECIMENOrdering Facility: [facility] Address: [address] [place] [address] Performed By: #### 5 7021-8 ####[facility] LABORATORYCLIA [id number] [address] OF [place] Neutrophils/100 WBC (Bld) 71.6 % Normal [facility] Comment on above: Order Comment: Speci men Type: BLOOD SPECIMENOrdering Facility: [facility] Address: [address] [place] [address] Performed By: #### 5 7021-8 ####[facility] LABORATORYCLIA [id number] [address] [place] Nucleated RBC (Bld) [#/Vol] 10*3/uL Normal <0.01 [facility] Comment on above: Order Comment: Speci men Type: BLOOD SPECIMENOrdering Facility: [facility] Address: [address] [place] [address] Performed By: #### 5 7021-8 ####[facility] LABORATORYCLIA [id number] [address] [place] Nucleated RBC/100 WBC (Bld) [Ratio] 0.0 /100 WBC Normal [facility] Comment on above: Order Comment: Speci men Type: BLOOD SPECIMENOrdering Facility: [facility] Address: [address] [place] [address] Performed By: #### 5 7021-8 ####[facility] LABORATORYCLIA [id number] [place] [address] Platelet mean volume (Bld) [Entitic vol] 10.2 fL Normal 9.0-12.7 [facility] Comment on above: Order Comment: Speci men Type: BLOOD SPECIMENOrdering Facility: [facility] Address: [address] [place] [address] Performed By: #### 5 7021-8 ####[facility] LABORATORYCLIA [id number] [address] [place] Platelets (Bld) [#/Vol] 352 10*3/uL Normal 150-400 [facility] Comment on above: Order Comment: Speci men Type: BLOOD SPECIMENOrdering Facility: [facility] Address: [address] [place] [address] Performed By: #### 5 7021-8 ####[facility] LABORATORYCLIA [id number] [address] STATES OF [facility] RBC (Bld) [#/Vol] 3.30 10*6/uL Low 4.20-6.00 [facility] Comment on above: Order Comment: Speci men Type: BLOOD SPECIMENOrdering Facility: [facility] Address: [address] [place] [address] Performed By: #### 5 7021-8 ####[facility] LABORATORYCLIA [id number] [address] [place] WBC (Bld) [#/Vol] 12.46 10*3/uL High 3.70-11.00 [facility] Comment on above: Order Comment: Speci men Type: BLOOD SPECIMENOrdering Facility: [facility] Address: [address] [place] [address] Performed By: #### 5 7021-8 ####[facility] LABORATORYCLIA [id number] [address] OF [facility] CONSULT PROGon 08-03-2021 CONSULT PROG Normal [facility] Magnesium SerPl-mCncon 08-03 Magnesium [Mass/Vol] 2.2 mg/dL Normal 1.7-2.3 [facility] Comment on above: Order Comment: Speci men Type: BLOOD SPECIMENOrdering Facility: [facility] Address: [address] [place] [address] Performed By: #### 2 4321-2, 93703-2, 2776- ####[facility] LABORATORYCLIA [id number] [address] STATES OF [facility] NURSING PROGon 08-03-2021 NURSING PROG Normal [facility] Phosphate SerPl-mCncon 08-03 Phosphate [Mass/Vol] 4.2 mg/dL Normal 2.7-4.8 [facility] Comment on above: Order Comment: Speci men Type: BLOOD SPECIMENOrdering Facility: [facility] Address: [address] [place] [address] Performed By: #### 2 4321-2, , 2776-05 ####[facility] LABORATORYCLIA [id number] [address] aPTT PPPon 08-03-2021 aPTT Coag (PPP) [Time] 50.0 s High 23.0-32.[address] [facility] Comment on above: Order Comment: Speci men Type: BLOOD SPECIMENOrdering Facility: [facility] Address: [address] [place] [address] Performed By: #### 1 4979-9 ####[facility] LABORATORYCLIA [id number] [address] STATES OF [facility] CBC W Auto Differential pane l (Bld)on 08-02-2021 Basophils (Bld) [#/Vol] 10*3/uL Normal <0.11 [facility] Comment on above: Order Comment: Speci men Type: BLOOD SPECIMENOrdering Facility: [facility] Address: [address] [place] [address] Performed By: #### 5 7021-8 ####[facility] LABORATORYCLIA [id number] [address] Basophils/100 WBC (Bld) 0.2 % Normal [facility] Comment on above: Order Comment: Speci men Type: BLOOD SPECIMENOrdering Facility: [facility] Address: [address] [place] [address] Performed By: #### 5 7021-8 ####[facility] LABORATORYCLIA [id number] [place] [address] [place] Differential cell count method Nom (Bld) Auto Normal [facility] Comment on above: Order Comment: Speci men Type: BLOOD SPECIMENOrdering Facility: [facility] Address: [address] [place] [address] Performed By: #### 5 7021-8 ####[facility] LABORATORYCLIA [id number] [place] [address] [place] Eosinophils (Bld) [#/Vol] 10*3/uL Normal <0.46 [facility] Comment on above: Order Comment: Speci men Type: BLOOD SPECIMENOrdering Facility: [facility] Address: [address] [place] [address] Performed By: #### 5 7021-8 ####[facility] LABORATORYCLIA [id number] [address] STATES OF [facility] Eosinophils/100 WBC (Bld) 0.0 % Normal [facility] Comment on above: Order Comment: Speci men Type: BLOOD SPECIMENOrdering Facility: [facility] Address: [address] [place] [address] Performed By: #### 5 7021-8 ####[facility] LABORATORYCLIA [id number] [place] [address] [place] Erythrocyte distribution width (RBC) [Ratio] 17.3 % High 11.5-15.0 [facility] Comment on above: Order Comment: Speci men Type: BLOOD SPECIMENOrdering Facility: [facility] Address: [address] [place] [address] Performed By: #### 5 7021-8 ####[facility] LABORATORYCLIA [id number] [address] Hematocrit (Bld) [Volume fraction] 30.8 % Low 39.0-51.0 [facility] Comment on above: Order Comment: Speci men Type: BLOOD SPECIMENOrdering Facility: [facility] Address: [address] [place] [address] Performed By: #### 5 7021-8 ####[facility] LABORATORYCLIA [id number] [address] [place] Hemoglobin (Bld) [Mass/Vol] 9.7 g/dL Low 13.0-17.0 [facility] Comment on above: Order Comment: Speci men Type: BLOOD SPECIMENOrdering Facility: [facility] Address: [address] [place] [address] Performed By: #### 5 7021-8 ####[facility] LABORATORYCLIA [id number] [address] IMMATURE GRAN % 0.5 % Normal [facility] Comment on above: Order Comment: Speci men Type: BLOOD SPECIMENOrdering Facility: [facility] Address: [address] [place] [address] Performed By: #### 5 7021-8 ####[facility] LABORATORYCLIA [id number] [address] IMMATURE GRAN ABS 0.07 k/uL Normal <0.10 [facility] Comment on above: Order Comment: Speci men Type: BLOOD SPECIMENOrdering Facility: [facility] Address: [address] [place] [address] Performed By: #### 5 7021-8 ####[facility] LABORATORYCLIA [id number] [address] [place] Lymphocytes (Bld) [#/Vol] 1.60 10*3/uL Normal 1.00-4.00 [facility] Comment on above: Order Comment: Speci men Type: BLOOD SPECIMENOrdering Facility: [facility] Address: [address] [place] [address] Performed By: #### 5 7021-8 ####[facility] LABORATORYCLIA [id number] [address] Lymphocytes/100 WBC (Bld) 12.1 % Normal [facility] Comment on above: Order Comment: Speci men Type: BLOOD SPECIMENOrdering Facility: [facility] Address: [address] [place] [address] Performed By: #### 5 7021-8 ####[facility] LABORATORYCLIA [id number] [address] MCH (RBC) [Entitic mass] 28.6 pg Normal 26.0-34.0 [facility] Comment on above: Order Comment: Speci men Type: BLOOD SPECIMENOrdering Facility: [facility] Address: [address] [place] [address] Performed By: #### 5 7021-8 ####[facility] LABORATORYCLIA [id number] [address] MCHC (RBC) [Mass/Vol] 31.5 g/dL Normal 30.5-36.0 [facility] Comment on above: Order Comment: Speci men Type: BLOOD SPECIMENOrdering Facility: [facility] Address: [address] [place] [address] Performed By: #### 5 7021-8 ####[facility] LABORATORYCLIA [id number] [address] MCV (RBC) [Entitic vol] 90.9 fL Normal 80.0-100.0 [facility] Comment on above: Order Comment: Speci men Type: BLOOD SPECIMENOrdering Facility: [facility] Address: [address] [place] [address] Performed By: #### 5 7021-8 ####[facility] LABORATORYCLIA [id number] [address] Monocytes (Bld) [#/Vol] 0.39 10*3/uL Normal <0.87 [facility] Comment on above: Order Comment: Speci men Type: BLOOD SPECIMENOrdering Facility: [facility] Address: [address] [place] [address] Performed By: #### 5 7021-8 ####[facility] LABORATORYCLIA [id number] [address] [place] Monocytes/100 WBC (Bld) 3.0 % Normal [facility] Comment on above: Order Comment: Speci men Type: BLOOD SPECIMENOrdering Facility: [facility] Address: [address] [place] [address] Performed By: #### 5 7021-8 ####[facility] LABORATORYCLIA [id number] [place] [address] [place] Neutrophils (Bld) [#/Vol] 11.09 10*3/uL High 1.45-7.50 [facility] Comment on above: Order Comment: Speci men Type: BLOOD SPECIMENOrdering Facility: [facility] Address: [address] [place] [address] Performed By: #### 5 7021-8 ####[facility] LABORATORYCLIA [id number] [address] [place] Neutrophils/100 WBC (Bld) 84.2 % Normal [facility] Comment on above: Order Comment: Speci men Type: BLOOD SPECIMENOrdering Facility: [facility] Address: [address] [place] [address] Performed By: #### 5 7021-8 ####[facility]ORATORYCLIA [id number] [place] [address] [place] Nucleated RBC (Bld) [#/Vol] 10*3/uL Normal <0.01 [facility] Comment on above: Order Comment: Speci men Type: BLOOD SPECIMENOrdering Facility: [facility] Address: [address] [place] [address] Performed By: #### 5 7021-8 ####[facility]ORATORYCLIA [id number] [address] [place] Nucleated RBC/100 WBC (Bld) [Ratio] 0.0 /100 WBC Normal [facility] Comment on above: Order Comment: Speci men Type: BLOOD SPECIMENOrdering Facility: [facility] Address: [address] [place] [address] Performed By: #### 5 7021-8 ####[facility] LABORATORYCLIA [id number] [place] [address] [place] Platelet mean volume (Bld) [Entitic vol] 10.0 fL Normal 9.0-12.7 [facility] Comment on above: Order Comment: Speci men Type: BLOOD SPECIMENOrdering Facility: [facility] Address: [address] [place] [address] Performed By: #### 5 7021-8 ####[facility] LABORATORYCLIA [id number] [place] [address] [place] Platelets (Bld) [#/Vol] 358 10*3/uL Normal 150-400 [facility] Comment on above: Order Comment: Speci men Type: BLOOD SPECIMENOrdering Facility: [facility] Address: [address] [place] [address] Performed By: #### 5 7021-8 ####[facility] LABORATORYCLIA [id number] [place] [address] [place] RBC (Bld) [#/Vol] 3.39 10*6/uL Low 4.20-6.00 [facility] Comment on above: Order Comment: Speci men Type: BLOOD SPECIMENOrdering Facility: [facility] Address: [address] [place] [address] Performed By: #### 5 7021-8 ####[facility] LABORATORYCLIA [id number] [place] [address] [place] WBC (Bld) [#/Vol] 13.17 10*3/uL High 3.70-11.00 [facility] Comment on above: Order Comment: Speci men Type: BLOOD SPECIMENOrdering Facility: [facility] Address: [address] [place] [address] Performed By: #### 5 7021-8 ####[facility] LABORATORYCLIA [id number] [address] OF [facility] NURSING PROGon 08-02-2021 NURSING PROG Normal [facility] THERAPY NTon 08-02-2021 THERAPY NT Normal [facility] aPTT PPPon 08-02-2021 aPTT Coag (PPP) [Time] 54.9 s High 23.0-32.[address] [facility] Comment on above: Order Comment: Speci men Type: BLOOD SPECIMENOrdering Facility: [facility] Address: [address] [place] [address] Performed By: #### 1 4979-9 ####[facility] LABORATORYCLIA [id number] [address] [place] ALLIED HEALTHon 08-01-2021 ALLIED HEALTH Normal [facility] ALLIED HEALTH Normal [facility] Basic metabolic 2000 panelon 08-01-2021 Anion gap [Moles/Vol] 12 mmol/L Normal 9-18 [facility] Comment on above: Order Comment: Speci men Type: BLOOD SPECIMENOrdering Facility: [facility] Address: [address] [place] [address] Performed By: #### 2 4321-2, 80380-3, 39218-1, 2777-1 ####[facility] LABORATORYCLIA [id number] [place] [address] [place] Calcium [Mass/Vol] 9.1 mg/dL Normal 8.5-10.2 [facility] Comment on above: Order Comment: Speci men Type: BLOOD SPECIMENOrdering Facility: [facility] Address: [address] [place] [address] Performed By: #### 2 4321-2, 93021-1, 91749-9, 2777-1 ####[facility] LABORATORYCLIA [id number] [place] [address] [place] Chloride [Moles/Vol] 96 mmol/L Low 97-105 [facility] Comment on above: Order Comment: Speci men Type: BLOOD SPECIMENOrdering Facility: [facility] Address: [address] [place], [place] [address] Performed By: #### 2 4321-2, 35211-5, 05659-8, 277- ####[facility] LABORATORYCLIA [id number] [place] [address] [place] CO2 [Moles/Vol] 27 mmol/L Normal 22-30 [facility] Comment on above: Order Comment: Speci men Type: BLOOD SPECIMENOrdering Facility: [facility] Address: [address] [place] [address] Performed By: #### 2 4321-2, 17515-8, 28549-6, 2776- ####[facility] LABORATORYCLIA [id number] [address] STATES OF [facility] Creatinine [Mass/Vol] 0.64 mg/dL Low 0.73-1.22 [facility] Comment on above: Order Comment: Speci men Type: BLOOD SPECIMENOrdering Facility: [facility] Address: [address] [place] [address] Performed By: #### 2 4321-2, 23980-2, 59319-9, 2776-05 ####[facility] LABORATORYCLIA [id number] [address] [place] ESTIMATED GLOMERULAR FILTRATION RATE 102 mL/min/1.73m??? Normal >=60 [facility] Comment on above: Order Comment: Speci men Type: BLOOD SPECIMENOrdering Facility: [facility] Address: [address] [place] [address] Result Comment: Luzmaria mated Glomerular Filtration Rate [...] actual GFR. Performed By: #### 2 4321-2, 67523-1, 78396-5, 2777-1 ####[facility] LABORATORYCLIA [id number] [place] [address] [place] Glucose [Mass/Vol] 122 mg/dL High 74-99 [facility] Comment on above: Order Comment: Shira francia Type: BLOOD SPECIMENOrdering Facility: [facility] Address: [address] [place] [address] Result Comment: The [place] [employer] (ADA) [...] 2016.39(Suppl 1). Performed By: #### 2 4321-2, 82912-2, 34943-5, 2777-1 ####[facility] LABORATORYCLIA [id number] [place] [address] [place] Potassium [Moles/Vol] 4.2 mmol/L Normal 3.7-5.1 [facility] Comment on above: Order Comment: Shira francia Type: BLOOD SPECIMENOrdering Facility: [facility] Address: [address] [address] Performed By: #### 2 4321-2, 35060-9, 88364-4, 2777-1 ####[facility] LABORATORYCLIA [id number] [place] [address] [place] Sodium [Moles/Vol] 135 mmol/L Low 136-144 [facility] Comment on above: Order Comment: Johni francia Type: BLOOD SPECIMENOrdering Facility: [facility] Address: [address] [address] Performed By: #### 2 4321-2, 41030-3, 21192-8, 2777-1 ####[facility] LABORATORYCLIA [id number] [place] [address] [place] Urea nitrogen [Mass/Vol] 36 mg/dL High 9-24 [facility] Comment on above: Order Comment: Speci men Type: BLOOD SPECIMENOrdering Facility: [facility] Address: [address] [place] [address] Performed By: #### 2 4321-2, 73971-2, 02724-0, 2777-1 ####[facility] LABORATORYCLIA [id number] [address] STATES OF [facility] CASE MANAGEMon 08-01-2021 CASE MANAGEM Normal [facility] CBC W Auto Differential pane l (Bld)on 08-01-2021 Basophils (Bld) [#/Vol] 0.04 10*3/uL Normal <0.11 [facility] Comment on above: Order Comment: Speci men Type: BLOOD SPECIMENOrdering Facility: [facility] Address: [address] [place] [address] Performed By: #### 5 7021-8 ####[facility] LABORATORYCLIA [id number] [address] [place] Basophils/100 WBC (Bld) 0.3 % Normal [facility] Comment on above: Order Comment: Speci men Type: BLOOD SPECIMENOrdering Facility: [facility] Address: [address] [place] [address] Performed By: #### 5 7021-8 ####[facility] LABORATORYCLIA [id number] [address] STATES OF [facility] Differential cell count method Nom (Bld) Auto Normal [facility] Comment on above: Order Comment: Speci men Type: BLOOD SPECIMENOrdering Facility: [facility] Address: [address] [place] [address] Performed By: #### 5 7021-8 ####[facility] LABORATORYCLIA [id number] [address] [place] Eosinophils (Bld) [#/Vol] 0.37 10*3/uL Normal <0.46 [facility] Comment on above: Order Comment: Speci men Type: BLOOD SPECIMENOrdering Facility: [facility] Address: [address] [place] [address] Performed By: #### 5 7021-8 ####[facility] LABORATORYCLIA [id number] [address] [place] Eosinophils/100 WBC (Bld) 3.1 % Normal [facility] Comment on above: Order Comment: Speci men Type: BLOOD SPECIMENOrdering Facility: [facility] Address: [address] [place] [address] Performed By: #### 5 7021-8 ####[facility] LABORATORYCLIA [id number] [address] Erythrocyte distribution width (RBC) [Ratio] 17.5 % High 11.5-15.0 [facility] Comment on above: Order Comment: Speci men Type: BLOOD SPECIMENOrdering Facility: [facility] Address: [address] [place] [address] Performed By: #### 5 7021-8 ####[facility] LABORATORYCLIA [id number] [address] [place] Hematocrit (Bld) [Volume fraction] 30.1 % Low 39.0-51.0 [facility] Comment on above: Order Comment: Speci men Type: BLOOD SPECIMENOrdering Facility: [facility] Address: [address] [place] [address] Performed By: #### 5 7021-8 ####[facility] LABORATORYCLIA [id number] [address] [place] Hemoglobin (Bld) [Mass/Vol] 9.1 g/dL Low 13.0-17.0 [facility] Comment on above: Order Comment: Speci men Type: BLOOD SPECIMENOrdering Facility: [facility] Address: [address] [address] Performed By: #### 5 7021-8 ####[facility] LABORATORYCLIA [id number] [address] IMMATURE GRAN % 0.6 % Normal [facility] Comment on above: Order Comment: Speci men Type: BLOOD SPECIMENOrdering Facility: [facility] Address: [address] [place] [address] Performed By: #### 5 7021-8 ####[facility] LABORATORYCLIA [id number] [address] IMMATURE GRAN ABS 0.07 k/uL Normal <0.10 [facility] Comment on above: Order Comment: Speci men Type: BLOOD SPECIMENOrdering Facility: [facility] Address: [address] [place] [address] Performed By: #### 5 7021-8 ####[facility] LABORATORYCLIA [id number] [address] Lymphocytes (Bld) [#/Vol] 2.05 10*3/uL Normal 1.00-4.00 [facility] Comment on above: Order Comment: Speci men Type: BLOOD SPECIMENOrdering Facility: [facility] Address: [address] [place] [address] Performed By: #### 5 7021-8 ####[facility] LABORATORYCLIA [id number] [address] Lymphocytes/100 WBC (Bld) 17.1 % Normal [facility] Comment on above: Order Comment: Speci men Type: BLOOD SPECIMENOrdering Facility: [facility] Address: [address] [place] [address] Performed By: #### 5 7021-8 ####[facility] LABORATORYCLIA [id number] [address] MCH (RBC) [Entitic mass] 27.7 pg Normal 26.0-34.0 [facility] Comment on above: Order Comment: Speci men Type: BLOOD SPECIMENOrdering Facility: [facility] Address: [address] [place] [address] Performed By: #### 5 7021-8 ####[facility] LABORATORYCLIA [id number] [address] MCHC (RBC) [Mass/Vol] 30.2 g/dL Low 30.5-36.0 [facility] Comment on above: Order Comment: Speci men Type: BLOOD SPECIMENOrdering Facility: [facility] Address: [address] [place] [address] Performed By: #### 5 7021-8 ####[facility] LABORATORYCLIA [id number] [address] MCV (RBC) [Entitic vol] 91.5 fL Normal 80.0-100.0 [facility] Comment on above: Order Comment: Speci men Type: BLOOD SPECIMENOrdering Facility: [facility] Address: [address] [place] [address] Performed By: #### 5 7021-8 ####[facility] LABORATORYCLIA [id number] [address] Monocytes (Bld) [#/Vol] 0.53 10*3/uL Normal <0.87 [facility] Comment on above: Order Comment: Speci men Type: BLOOD SPECIMENOrdering Facility: [facility] Address: [address] [place] [address] Performed By: #### 5 7021-8 ####[facility] LABORATORYCLIA [id number] [address] Monocytes/100 WBC (Bld) 4.4 % Normal [facility] Comment on above: Order Comment: Speci men Type: BLOOD SPECIMENOrdering Facility: [facility] Address: [address] [place] [address] Performed By: #### 5 7021-8 ####[facility] LABORATORYCLIA [id number] [place] [address] [place] Neutrophils (Bld) [#/Vol] 8.91 10*3/uL High 1.45-7.50 [facility] Comment on above: Order Comment: Speci men Type: BLOOD SPECIMENOrdering Facility: [facility] Address: [address] [place] [address] Performed By: #### 5 7021-8 ####[facility] LABORATORYCLIA [id number] [address] [place] Neutrophils/100 WBC (Bld) 74.5 % Normal [facility] Comment on above: Order Comment: Speci men Type: BLOOD SPECIMENOrdering Facility: [facility] Address: [address] [place] [address] Performed By: #### 5 7021-8 ####[facility] LABORATORYCLIA [id number] [address] [place] Nucleated RBC (Bld) [#/Vol] 10*3/uL Normal <0.01 [facility] Comment on above: Order Comment: Speci men Type: BLOOD SPECIMENOrdering Facility: [facility] Address: [address] [place] [address] Performed By: #### 5 7021-8 ####[facility] LABORATORYCLIA [id number] [address] [place] Nucleated RBC/100 WBC (Bld) [Ratio] 0.0 /100 WBC Normal [facility] Comment on above: Order Comment: Speci men Type: BLOOD SPECIMENOrdering Facility: [facility] Address: [address] [place] [address] Performed By: #### 5 7021-8 ####[facility] LABORATORYCLIA [id number] [address] [place] Platelet mean volume (Bld) [Entitic vol] 10.4 fL Normal 9.0-12.7 [facility] Comment on above: Order Comment: Speci men Type: BLOOD SPECIMENOrdering Facility: [facility] Address: [address] [place] [address] Performed By: #### 5 7021-8 ####[facility] LABORATORYCLIA [id number] [address] STATES OF [facility] Platelets (Bld) [#/Vol] 319 10*3/uL Normal 150-400 [facility] Comment on above: Order Comment: Speci men Type: BLOOD SPECIMENOrdering Facility: [facility] Address: [address] [place] [address] Performed By: #### 5 7021-8 ####[facility] LABORATORYCLIA [id number] [place] [address] [place] RBC (Bld) [#/Vol] 3.29 10*6/uL Low 4.20-6.00 [facility] Comment on above: Order Comment: Speci men Type: BLOOD SPECIMENOrdering Facility: [facility] Address: [address] [place] [address] Performed By: #### 5 7021-8 ####[facility] LABORATORYCLIA [id number] [address] OF [facility] WBC (Bld) [#/Vol] 11.97 10*3/uL High 3.70-11.00 [facility] Comment on above: Order Comment: Speci men Type: BLOOD SPECIMENOrdering Facility: [facility] Address: [address] [place] [address] Performed By: #### 5 7021-8 ####[facility] LABORATORYCLIA [id number] [address] OF [place] CT BRAIN WO IVCONon 08-02-19 CT BRAIN WO IVCON Normal [facility] Magnesium SerPl-mCncon 08-01 Magnesium [Mass/Vol] 2.4 mg/dL High 1.7-2.3 [facility] Comment on above: Order Comment: Speci men Type: BLOOD SPECIMENOrdering Facility: [facility] Address: [address] [place] [address] Performed By: #### 2 4321-2, 56922-5, 93344-1, 2777-1 ####[facility] LABORATORYCLIA [id number] [address] [place] NURSING PROGon 08-01-2021 NURSING PROG Normal [facility] NUTRITIONon 08-01-2021 NUTRITION Normal [facility] Phosphate SerPl-mCncon 08-01 Phosphate [Mass/Vol] 3.3 mg/dL Normal 2.7-4.8 [facility] Comment on above: Order Comment: Speci men Type: BLOOD SPECIMENOrdering Facility: [facility] Address: [address] [place] [address] Performed By: #### 2 4321-2, 14647-8, 92586-9, 2777-1 ####[facility] LABORATORYCLIA [id number] [address] [place] Prealbumin [Mass/Vol]on 07-06 Prealbumin Nephelometry [Mass/Vol] 30 mg/dL Normal 17-36 [facility] Comment on above: Order Comment: Speci men Type: BLOOD SPECIMENOrdering Facility: [facility] Address: [address] [place] [address] Performed By: #### 2 4321-2, 06947-6, 44943-9, 2777-1 ####[facility] LABORATORYCLIA [id number] [address] [place] THERAPY NTon 08-01-2021 THERAPY NT Normal [facility] THERAPY NT Normal [facility] TYPE AND SCREENon 08-01-2021 ABO O Normal [facility] Comment on above: Order Comment: Speci men Type: BLOOD SPECIMENOrdering Facility: [facility] Address: [address] [place] [address] Performed By: #### T SCR ####[facility] BLOOD BANKCLIA [id number] [address] [place] HISTORICAL AB SCR STATUS Negative Normal [facility] Comment on above: Order Comment: Speci men Type: BLOOD SPECIMENOrdering Facility: [facility] Address: [address] [address] Performed By: #### T SCR ####[facility] BLOOD BANKCLIA [id number] [address] Rh Nom (Bld) Positive Normal [facility] Comment on above: Order Comment: Speci men Type: BLOOD SPECIMENOrdering Facility: [facility] Address: [address] [place] [address] Performed By: #### T SCR ####[facility] BLOOD BANKCLIA [id number] [address] TYPE AND SCREEN EXPIRATION 08/04/2021 23:59 Normal [facility] Comment on above: Order Comment: Speci men Type: BLOOD SPECIMENOrdering Facility: [facility] Address: [address] [place] [address] Performed By: #### T SCR ####[facility] BLOOD BANKCLIA [id number] [address] OF [facility] XR CHEST 1V FRONTALon 2021 XR CHEST 1V FRONTAL Normal [facility] aPTT PPPon 08-01-2021 aPTT Coag (PPP) [Time] 50.9 s High 23.0-32.[address] [facility] Comment on above: Order Comment: Speci men Type: BLOOD SPECIMENOrdering Facility: [facility] Address: [address] [place] [address] Performed By: #### 1 4979-9 ####[facility] LABORATORYCLIA [id number] [address] CBC W Auto Differential pane l (Bld)on 07-31-2021 Basophils (Bld) [#/Vol] 0.05 10*3/uL Normal <0.11 [facility] Comment on above: Order Comment: Speci men Type: BLOOD SPECIMENOrdering Facility: [facility] Address: [address] [place] [address] Performed By: #### 5 7021-8 ####[facility] LABORATORYCLIA [id number] [address] [place] Basophils/100 WBC (Bld) 0.4 % Normal [facility] Comment on above: Order Comment: Speci men Type: BLOOD SPECIMENOrdering Facility: [facility] Address: [address] [place] [address] Performed By: #### 5 7021-8 ####[facility] LABORATORYCLIA [id number] [address] [place] Differential cell count method Nom (Bld) Auto Normal [facility] Comment on above: Order Comment: Speci men Type: BLOOD SPECIMENOrdering Facility: [facility] Address: [address] [place] [address] Performed By: #### 5 7021-8 ####[facility] LABORATORYCLIA [id number] [place] [address] [place] Eosinophils (Bld) [#/Vol] 0.51 10*3/uL High <0.46 [facility] Comment on above: Order Comment: Speci men Type: BLOOD SPECIMENOrdering Facility: [facility] Address: [address] [place] [address] Performed By: #### 5 7021-8 ####[facility] LABORATORYCLIA [id number] [address] [place] Eosinophils/100 WBC (Bld) 4.5 % Normal [facility] Comment on above: Order Comment: Speci men Type: BLOOD SPECIMENOrdering Facility: [facility] Address: [address] [place] [address] Performed By: #### 5 7021-8 ####[facility] LABORATORYCLIA [id number] [address] [place] Erythrocyte distribution width (RBC) [Ratio] 17.5 % High 11.5-15.0 [facility] Comment on above: Order Comment: Speci men Type: BLOOD SPECIMENOrdering Facility: [facility] Address: [address] [place] [address] Performed By: #### 5 7021-8 ####[facility] LABORATORYCLIA [id number] [address] Hematocrit (Bld) [Volume fraction] 30.4 % Low 39.0-51.0 [facility] Comment on above: Order Comment: Speci men Type: BLOOD SPECIMENOrdering Facility: [facility] Address: [address] [place] [address] Performed By: #### 5 7021-8 ####[facility] LABORATORYCLIA [id number] [address] Hemoglobin (Bld) [Mass/Vol] 9.2 g/dL Low 13.0-17.0 [facility] Comment on above: Order Comment: Speci men Type: BLOOD SPECIMENOrdering Facility: [facility] Address: [address] [place] [address] Performed By: #### 5 7021-8 ####[facility] LABORATORYCLIA [id number] [address] IMMATURE GRAN % 0.5 % Normal [facility] Comment on above: Order Comment: Speci men Type: BLOOD SPECIMENOrdering Facility: [facility] Address: [address] [place] [address] Performed By: #### 5 7021-8 ####[facility] LABORATORYCLIA [id number] [address] IMMATURE GRAN ABS 0.06 k/uL Normal <0.10 [facility] Comment on above: Order Comment: Speci men Type: BLOOD SPECIMENOrdering Facility: [facility] Address: [address] [place] [address] Performed By: #### 5 7021-8 ####[facility] LABORATORYCLIA [id number] [address] Lymphocytes (Bld) [#/Vol] 1.99 10*3/uL Normal 1.00-4.00 [facility] Comment on above: Order Comment: Speci men Type: BLOOD SPECIMENOrdering Facility: [facility] Address: [address] [place] [address] Performed By: #### 5 7021-8 ####[facility] LABORATORYCLIA [id number] [address] Lymphocytes/100 WBC (Bld) 17.6 % Normal [facility] Comment on above: Order Comment: Speci men Type: BLOOD SPECIMENOrdering Facility: [facility] Address: [address] [place] [address] Performed By: #### 5 7021-8 ####[facility] LABORATORYCLIA [id number] [address] MCH (RBC) [Entitic mass] 28.4 pg Normal 26.0-34.0 [facility] Comment on above: Order Comment: Speci men Type: BLOOD SPECIMENOrdering Facility: [facility] Address: [address] [place] [address] Performed By: #### 5 7021-8 ####[facility] LABORATORYCLIA [id number] [address] MCHC (RBC) [Mass/Vol] 30.3 g/dL Low 30.5-36.0 [facility] Comment on above: Order Comment: Speci men Type: BLOOD SPECIMENOrdering Facility: [facility] Address: [address] [place] [address] Performed By: #### 5 7021-8 ####[facility] LABORATORYCLIA [id number] [address] MCV (RBC) [Entitic vol] 93.8 fL Normal 80.0-100.0 [facility] Comment on above: Order Comment: Speci men Type: BLOOD SPECIMENOrdering Facility: [facility] Address: [address] [place] [address] Performed By: #### 5 7021-8 ####[facility] LABORATORYCLIA [id number] [address] Monocytes (Bld) [#/Vol] 0.57 10*3/uL Normal <0.87 [facility] Comment on above: Order Comment: Speci men Type: BLOOD SPECIMENOrdering Facility: [facility] Address: [address] [place] [address] Performed By: #### 5 7021-8 ####[facility]ORATORYCLIA [id number] [address] [place] Monocytes/100 WBC (Bld) 5.0 % Normal [facility] Comment on above: Order Comment: Speci men Type: BLOOD SPECIMENOrdering Facility: [facility] Address: [address] [place] [address] Performed By: #### 5 7021-8 ####[facility]ORATORYCLIA [id number] [address] [place] Neutrophils (Bld) [#/Vol] 8.12 10*3/uL High 1.45-7.50 [facility] Comment on above: Order Comment: Speci men Type: BLOOD SPECIMENOrdering Facility: [facility] Address: [address] [place] [address] Performed By: #### 5 7021-8 ####[facility]ORATORYCLIA [id number] [address] Neutrophils/100 WBC (Bld) 72.0 % Normal [facility] Comment on above: Order Comment: Speci men Type: BLOOD SPECIMENOrdering Facility: [facility] Address: [address] [place] [address] Performed By: #### 5 7021-8 ####[facility]ATORYCLIA [id number] [address] [place] Nucleated RBC (Bld) [#/Vol] 10*3/uL Normal <0.01 [facility] Comment on above: Order Comment: Speci men Type: BLOOD SPECIMENOrdering Facility: [facility] Address: [address] [place] [address] Performed By: #### 5 7021-8 ####[facility]ATORYCLIA [id number] [place] [address] [place] Nucleated RBC/100 WBC (Bld) [Ratio] 0.0 /100 WBC Normal [facility] Comment on above: Order Comment: Speci men Type: BLOOD SPECIMENOrdering Facility: [facility] Address: [address] [place] [address] Performed By: #### 5 7021-8 ####[facility]ORATORYCLIA [id number] [place] [address] [place] Platelet mean volume (Bld) [Entitic vol] 10.9 fL Normal 9.0-12.7 [facility] Comment on above: Order Comment: Speci men Type: BLOOD SPECIMENOrdering Facility: [facility] Address: [address] [place] [address] Performed By: #### 5 7021-8 ####[facility]ORATORYCLIA [id number] [address] [place] Platelets (Bld) [#/Vol] 303 10*3/uL Normal 150-400 [facility] Comment on above: Order Comment: Speci men Type: BLOOD SPECIMENOrdering Facility: [facility] Address: [address] [place] [address] Performed By: #### 5 7021-8 ####[facility] LABORATORYCLIA [id number] [place] [address] [place] RBC (Bld) [#/Vol] 3.24 10*6/uL Low 4.20-6.00 [facility] Comment on above: Order Comment: Speci men Type: BLOOD SPECIMENOrdering Facility: [facility] Address: [address] [place] [address] Performed By: #### 5 7021-8 ####[facility]ORATORYCLIA [id number] [place] [address] [place] WBC (Bld) [#/Vol] 11.30 10*3/uL High 3.70-11.00 [facility] Comment on above: Order Comment: Speci men Type: BLOOD SPECIMENOrdering Facility: [facility] Address: [address] [place] [address] Performed By: #### 5 7021-8 ####[facility]ORATORYCLIA [id number] [address] [place] NURSING PROGon 07-31-2021 NURSING PROG Normal [facility] aPTT PPPon 07-31-2021 aPTT Coag (PPP) [Time] 64.9 s High 23.0-32.[address] [facility] Comment on above: Order Comment: Speci men Type: BLOOD SPECIMENOrdering Facility: [facility] Address: [address] [place] [address] Performed By: #### 1 4979-9 ####[facility]ORATORYCLIA [id number] [address] [place] ALLIED HEALTHon 07-30-2021 ALLIED HEALTH Normal [facility] Bacteria CSF Culton 07-31-19 22 Bacteria identified Cx Nom (CSF) CULTURE, CSF: No growth 14 days GRAM STAIN: No organisms seen Few Mononuclear cells Rare Polymorphonuclear leukocytes Gram stain performed on cytospun specimen. Normal [facility] Comment on above: Performed By: #### 6 06-4 ####[facility]ORATORYCLIA [id number] [place] [address] [place] Basic metabolic 2000 panelon 07-30-2021 Anion gap [Moles/Vol] 9 mmol/L Normal 9-18 [facility] Comment on above: Order Comment: Speci men Type: BLOOD SPECIMENOrdering Facility: [facility] Address: [address] [place] [address] Performed By: #### 2 777-1, 33488-0, 23751-4 ####[facility]ORATORYCLIA [id number] [place] [address] [place] Calcium [Mass/Vol] 8.9 mg/dL Normal 8.5-10.2 [facility] Comment on above: Order Comment: Speci men Type: BLOOD SPECIMENOrdering Facility: [facility] Address: [address] [place] [address] Performed By: #### 2 777-1, 12052-2, ####[facility]ORATORYCLIA [id number] [place] [address] [place] Chloride [Moles/Vol] 95 mmol/L Low 97-105 [facility] Comment on above: Order Comment: Speci men Type: BLOOD SPECIMENOrdering Facility: [facility] Address: [address] [place] [address] Performed By: #### 2 777-1, 04229-7, ####[facility]ORATORYCLIA [id number] [address] [place] CO2 [Moles/Vol] 28 mmol/L Normal 22-30 [facility] Comment on above: Order Comment: Speci men Type: BLOOD SPECIMENOrdering Facility: [facility] Address: [address] [place] [address] Performed By: #### 2 777-1, , ####[facility]ORATORYCLIA [id number] [address] [place] Creatinine [Mass/Vol] 0.67 mg/dL Low 0.73-1.22 [facility] Comment on above: Order Comment: Speci men Type: BLOOD SPECIMENOrdering Facility: [facility] Address: [address] [place] [address] Performed By: #### 2 777-1, , ####[facility]ORATORYCLIA [id number] [address] OF [facility] ESTIMATED GLOMERULAR FILTRATION RATE 101 mL/min/1.73m??? Normal >=60 [facility] Comment on above: Order Comment: Speci men Type: BLOOD SPECIMENOrdering Facility: [facility] Address: [address] [place] [address] Result Comment: Luzmaria mated Glomerular Filtration Rate [...] actual GFR. Performed By: #### 2 777-1, 51924-7, ####[facility]ORATORYCLIA [id number] [place] [address] [place] Glucose [Mass/Vol] 125 mg/dL High 74-99 [facility] Comment on above: Order Comment: Shira feldman Type: BLOOD SPECIMENOrdering Facility: [facility] Address: [address] [place] [id number] Result Comment: The [place] [employer] (ADA) [...] 1). Performed By: #### 2 777-1, , ####[facility]ORATORYCLIA [id number] [place] [address] [place] Potassium [Moles/Vol] 3.9 mmol/L Normal 3.7-5.1 [facility] Comment on above: Order Comment: Shira feldman Type: BLOOD SPECIMENOrdering Facility: [facility] [address] [place] [address] Performed By: #### 2 777-1, 19965-5, ####[facility]ORATORYCLIA [id number] [place] [address] [place] Sodium [Moles/Vol] 132 mmol/L Low 136-144 [facility] Comment on above: Order Comment: Speci men Type: BLOOD SPECIMENOrdering Facility: [facility] Address: [address] [place] [address] Performed By: #### 2 777-1, 27729-4, ####[facility]ORATORYCLIA [id number] [address] STATES [facility] Urea nitrogen [Mass/Vol] 38 mg/dL High 9-24 [facility] Comment on above: Order Comment: Speci men Type: BLOOD SPECIMENOrdering Facility: [facility] Address: [address] [place] [address] Performed By: #### 2 777-1, 64743-3, ####[facility]ORATORYCLIA [id number] [address] STATES OF [facility] CBC W Auto Differential pane l (Bld)on 07-30-2021 Basophils (Bld) [#/Vol] 0.04 10*3/uL Normal <0.11 [facility] Comment on above: Order Comment: Speci men Type: BLOOD SPECIMENOrdering Facility: [facility] Address: [address] [place] [address] Performed By: #### 5 7021-8 ####[facility]ORATORYCLIA [id number] [address] [place] Basophils/100 WBC (Bld) 0.4 % Normal [facility] Comment on above: Order Comment: Speci men Type: BLOOD SPECIMENOrdering Facility: [facility] Address: [address] [place] [address] Performed By: #### 5 7021-8 ####[facility]ORATORYCLIA [id number] [address] Differential cell count method Nom (Bld) Auto Normal [facility] Comment on above: Order Comment: Speci men Type: BLOOD SPECIMENOrdering Facility: [facility] Address: [address] [place] [address] Performed By: #### 5 7021-8 ####[facility]ORYCLIA [id number] [address] [place] Eosinophils (Bld) [#/Vol] 0.30 10*3/uL Normal <0.46 [facility] Comment on above: Order Comment: Speci men Type: BLOOD SPECIMENOrdering Facility: [facility] Address: [address] [place] [address] Performed By: #### 5 7021-8 ####[facility]ORATORYCLIA [id number] [address] Eosinophils/100 WBC (Bld) 2.7 % Normal [facility] Comment on above: Order Comment: Speci men Type: BLOOD SPECIMENOrdering Facility: [facility] Address: [address] [place] [address] Performed By: #### 5 7021-8 ####[facility]ORATORYCLIA [id number] [address] Erythrocyte distribution width (RBC) [Ratio] 17.2 % High 11.5-15.0 [facility] Comment on above: Order Comment: Speci men Type: BLOOD SPECIMENOrdering Facility: [facility] Address: [address] [place] [address] Performed By: #### 5 7021-8 ####[facility]ORATORYCLIA [id number] [address] [place] Hematocrit (Bld) [Volume fraction] 30.8 % Low 39.0-51.0 [facility] Comment on above: Order Comment: Speci men Type: BLOOD SPECIMENOrdering Facility: [facility] Address: [address] [place] [address] Performed By: #### 5 7021-8 ####[facility]ORATORYCLIA [id number] [address] [place] Hemoglobin (Bld) [Mass/Vol] 9.4 g/dL Low 13.0-17.0 [facility] Comment on above: Order Comment: Speci men Type: BLOOD SPECIMENOrdering Facility: [facility] Address: [address] [place] [address] Performed By: #### 5 7021-8 ####[facility]ORATORYCLIA [id number] [address] IMMATURE GRAN % 0.5 % Normal [facility] Comment on above: Order Comment: Speci men Type: BLOOD SPECIMENOrdering Facility: [facility] Address: [address] [place] [address] Performed By: #### 5 7021-8 ####[facility]ATORYCLIA [id number] [address] IMMATURE GRAN ABS 0.06 k/uL Normal <0.10 [facility] Comment on above: Order Comment: Speci men Type: BLOOD SPECIMENOrdering Facility: [facility] Address: [address] [place] [address] Performed By: #### 5 7021-8 ####[facility]ATORYCLIA [id number] [address] Lymphocytes (Bld) [#/Vol] 1.68 10*3/uL Normal 1.00-4.00 [facility] Comment on above: Order Comment: Speci men Type: BLOOD SPECIMENOrdering Facility: [facility] Address: [address] [place] [address] Performed By: #### 5 7021-8 ####[facility]ATORYCLIA [id number] [address] Lymphocytes/100 WBC (Bld) 15.3 % Normal [facility] Comment on above: Order Comment: Speci men Type: BLOOD SPECIMENOrdering Facility: [facility] Address: [address] [place] [address] Performed By: #### 5 7021-8 ####[facility]ORATORYCLIA [id number] [address] MCH (RBC) [Entitic mass] 28.0 pg Normal 26.0-34.0 [facility] Comment on above: Order Comment: Speci men Type: BLOOD SPECIMENOrdering Facility: [facility] Address: [address] [place] [address] Performed By: #### 5 7021-8 ####[facility]ORATORYCLIA [id number] [address] STATES OF [facility] MCHC (RBC) [Mass/Vol] 30.5 g/dL Normal 30.5-36.0 [facility] Comment on above: Order Comment: Speci men Type: BLOOD SPECIMENOrdering Facility: [facility] Address: [address] [place] [address] Performed By: #### 5 7021-8 ####[facility]ORATORYCLIA [id number] [address] STATES OF [facility] MCV (RBC) [Entitic vol] 91.7 fL Normal 80.0-100.0 [facility] Comment on above: Order Comment: Speci men Type: BLOOD SPECIMENOrdering Facility: [facility] Address: [address] [place] [address] Performed By: #### 5 7021-8 ####[facility]ATORYCLIA [id number] [address] Monocytes (Bld) [#/Vol] 0.53 10*3/uL Normal <0.87 [facility] Comment on above: Order Comment: Speci men Type: BLOOD SPECIMENOrdering Facility: [facility] Address: [address] [place] [address] Performed By: #### 5 7021-8 ####[facility]ATORYCLIA [id number] [address] Monocytes/100 WBC (Bld) 4.8 % Normal [facility] Comment on above: Order Comment: Speci men Type: BLOOD SPECIMENOrdering Facility: [facility] Address: [address] [place] [address] Performed By: #### 5 7021-8 ####[facility]ORATORYCLIA [id number] [place] [address] [place] Neutrophils (Bld) [#/Vol] 8.39 10*3/uL High 1.45-7.50 [facility] Comment on above: Order Comment: Speci men Type: BLOOD SPECIMENOrdering Facility: [facility] Address: [address] [place] [address] Performed By: #### 5 7021-8 ####[facility]ORATORYCLIA [id number] [address] [place] Neutrophils/100 WBC (Bld) 76.3 % Normal [facility] Comment on above: Order Comment: Speci men Type: BLOOD SPECIMENOrdering Facility: [facility] Address: [address] [place] [address] Performed By: #### 5 7021-8 ####[facility]ORATORYCLIA [id number] [address] STATES [facility] Nucleated RBC (Bld) [#/Vol] 10*3/uL Normal <0.01 [facility] Comment on above: Order Comment: Speci men Type: BLOOD SPECIMENOrdering Facility: [facility] Address: [address] [place] [address] Performed By: #### 5 7021-8 ####[facility]ORATORYCLIA [id number] [address] [place] Nucleated RBC/100 WBC (Bld) [Ratio] 0.0 /100 WBC Normal [facility] Comment on above: Order Comment: Speci men Type: BLOOD SPECIMENOrdering Facility: [facility] Address: [address] [place] [address] Performed By: #### 5 7021-8 ####[facility]ORATORYCLIA [id number] [address] [place] Platelet mean volume (Bld) [Entitic vol] 10.9 fL Normal 9.0-12.7 [facility] Comment on above: Order Comment: Speci men Type: BLOOD SPECIMENOrdering Facility: [facility] Address: [address] [place], [place] [address] Performed By: #### 5 7021-8 ####[facility]ORATORYCLIA [id number] [address] Platelets (Bld) [#/Vol] 287 10*3/uL Normal 150-400 [facility] Comment on above: Order Comment: Speci men Type: BLOOD SPECIMENOrdering Facility: [facility] Address: [address] [place] [address] Performed By: #### 5 7021-8 ####[facility]ORATORYCLIA [id number] [address] RBC (Bld) [#/Vol] 3.36 10*6/uL Low 4.20-6.00 [facility] Comment on above: Order Comment: Speci men Type: BLOOD SPECIMENOrdering Facility: [facility] Address: [address] [place] [address] Performed By: #### 5 7021-8 ####[facility]ATORYCLIA [id number] [address] WBC (Bld) [#/Vol] 11.00 10*3/uL Normal 3.70-11.00 [facility] Comment on above: Order Comment: Speci men Type: BLOOD SPECIMENOrdering Facility: [facility] Address: [address] [place] [address] Performed By: #### 5 7021-8 ####[facility]ATORYCLIA [id number] [address] CSF MANUAL DIFFon 07-30-2021 DIF TTL, CSF 100 cells counted Normal [facility] Comment on above: Order Comment: Speci men Type: CEREBROSPINAL FLUIDOrdering Facility: [facility] Address: [address] [place] [address] Performed By: #### L [id number], VBO8974, 05340-5 ####[facility]ORATORYCLIA [id number] [place] [address] [place] EOSIN%, CSF 0 % Normal [facility] Comment on above: Order Comment: Speci men Type: CEREBROSPINAL FLUIDOrdering Facility: [facility] Address: [address] [place] [address] Performed By: #### L [id number], ABA1724, 40739-5 ####[facility]ATORYCLIA [id number] [place] [address] [place] LYMPH%, CSF 75 % Normal 50-90 [facility] Comment on above: Order Comment: Speci men Type: CEREBROSPINAL FLUIDOrdering Facility: [facility] Address: [address] [place] [address] Performed By: #### L [id number], JLE8041, 47155-7 ####[facility]ORYCLIA [id number] [place] [address] [place] MACRO%, CSF 9 % High <1 [facility] Comment on above: Order Comment: Speci men Type: CEREBROSPINAL FLUIDOrdering Facility: [facility] Address: [address] [place] [address] Performed By: #### L [id number], WOO9606, 78170-8 ####[facility]ATORYCLIA [id number] [place] [address] [place] MONO%, CSF 10 % Normal 10-50 [facility] Comment on above: Order Comment: Speci men Type: CEREBROSPINAL FLUIDOrdering Facility: [facility] Address: [address] [place] [address] Performed By: #### L [id number], LAJ9070, 26981-2 ####[facility]ORYCLIA [id number] [address] [place] OTHER CL%, CSF 4 % Normal [facility] Comment on above: Order Comment: Speci men Type: CEREBROSPINAL FLUIDOrdering Facility: [facility] Address: [address] [place] [address] Result Comment: Path review to follow. Performed By: #### L QQ6629, LIP5546, 77998-2 ####[facility]ATORYCLIA [id number] [address] [place] REAC LYMPH %, CSF 2 % Normal [facility] Comment on above: Order Comment: Speci men Type: CEREBROSPINAL FLUIDOrdering Facility: [facility] Address: [address] [place] [address] Performed By: #### L [id number], OJC8054, 15281-7 ####[facility]ATORYCLIA [id number] [address] [place] CSF PATHOLOGIST INTERP (LAB REFLEX ORDER-NO BILL)on 07-30-2021 CSF STAFF REVIEW Negative Normal [facility] Comment on above: Order Comment: Speci men Type: CEREBROSPINAL FLUIDOrdering Facility: [facility] Address: [address] [place] [address] Performed By: #### L [id number], UBK2973, 85019-4 ####[facility]ORATORYCLIA [id number] [address] Pathologist name Reviewed by Eloise rebolledo MD Normal [facility] Comment on above: Order Comment: Speci men Type: CEREBROSPINAL FLUIDOrdering Facility: [facility] Address: [address] [place] [address] Performed By: #### L [id number], ZTM9320, 29205-4 ####[facility]ATORYCLIA [id number] [address] [place] CT BRAIN WO IVCONon 07-31-[address] BRAIN WO IVCON Normal [facility] Cell count panel (CSF)on Clarity (CSF) Clear Normal Clear [facility] Comment on above: Order Comment: Speci men Type: CEREBROSPINAL FLUIDOrdering Facility: [facility] Address: [address] [place] [address] Performed By: #### L [id number], XAM9421, 14923-7 ####[facility]ATORYCLIA [id number] [address] Clarity (Unsp spec) Clear Normal Clear [facility] Comment on above: Order Comment: Speci men Type: CEREBROSPINAL FLUIDOrdering Facility: [facility] Address: [address] [place] [address] Performed By: #### L [id number], GAE1234, 90174-7 ####[facility]ORATORYCLIA [id number] [address] Color (CSF) Colorless Normal Colorless [facility] Comment on above: Order Comment: Speci men Type: CEREBROSPINAL FLUIDOrdering Facility: [facility] Address: [address] [place] [address] Performed By: #### L [id number], LXT3264, 50801-1 ####[facility]ORATORYCLIA [id number] [address] Color (Spun CSF) Colorless Normal Colorless [facility] Comment on above: Order Comment: Speci men Type: CEREBROSPINAL FLUIDOrdering Facility: [facility] Address: [address] [place], [place] [address] Performed By: #### L [id number], [id number], 29334-0 ####[facility]ORATORYCLIA [id number] [address] CSF TUBE NUMBER [employer] Normal [facility] Comment on above: Order Comment: Speci men Type: CEREBROSPINAL FLUIDOrdering Facility: [facility] Address: [address] [place], [place] [address] Performed By: #### L [id number], QJJ3081, 08516-9 ####[facility]ORATORYCLIA [id number] [address] RBC Manual cnt (CSF) [#/Vol] 9 cells/uL High 0-5 [facility] Comment on above: Order Comment: Speci men Type: CEREBROSPINAL FLUIDOrdering Facility: [facility] Address: [address] [place], [place] [address] Performed By: #### L [id number], BXJ6112, 93862-4 ####[facility]ORATORYCLIA [id number] [place] [address] [place] WBC Manual cnt (CSF) [#/Vol] 8 cells/uL High 0-5 [facility] Comment on above: Order Comment: Speci men Type: CEREBROSPINAL FLUIDOrdering Facility: [facility] Address: [address] [place] [address] Performed By: #### L [id number], KFX5542, 23180-1 ####[facility]ORATORYCLIA [id number] [address] STATES OF [facility] Glucose CSF-mCncon Glucose (CSF) [Mass/Vol] 65 mg/dL Normal 40-70 [facility] Comment on above: Order Comment: Speci men Type: CEREBROSPINAL FLUIDOrdering Facility: [facility] Address: [address] [place] [address] Result Comment: Lumb ar CSF glucose values of healthy patients are approximately 60% of the plasma values and must always be compared with a concurrently measured plasma value for adequate clinical interpretation.References: 1. Glucose HK (GLUC3) [package insert V 12.0 [place]]. [employer], [place], [place]. September 2015. 2. Michelle Moore, Loki, H. (2015). Chapter 7: Glucose and Lactate. Marianela Alcocer al.(eds.), Cerebrospinal Fluid in Clinical Neurology. [place]: [employer]. Performed By: #### 2 342-4, 2880-3 ####[facility]ORATORYCLIA [id number] [address] [place] Magnesium SerPl-ncon 07-30 Magnesium [Mass/Vol] 2.5 mg/dL High 1.7-2.3 [facility] Comment on above: Order Comment: Speci men Type: BLOOD SPECIMENOrdering Facility: [facility] Address: [address] [place] [address] Performed By: #### 2 777-1, 90756-3, 01725-9 ####[facility]ORATORYCLIA [id number] [address] NURSING PROGon 07-30-2021 NURSING PROG Normal [facility] Phosphate SerPl-mCncon 07-30 Phosphate [Mass/Vol] 2.4 mg/dL Low 2.7-4.8 [facility] Comment on above: Order Comment: Speci men Type: BLOOD SPECIMENOrdering Facility: [facility] Address: [address] [place] [address] Performed By: #### 2 777-1, 67506-5, 10011-7 ####[facility]ORATORYCLIA [id number] [address] Prot CSF-mCncon 07-30-2021 Protein (CSF) [Mass/Vol] 50 mg/dL High 15-45 [facility] Comment on above: Order Comment: Speci men Type: CEREBROSPINAL FLUIDOrdering Facility: [facility] Address: [address] [place] [address] Performed By: #### 2 342-4, 2880-3 ####[facility]ORATORYCLIA [id number] [address] aPTT PPPon 07-30-2021 aPTT Coag (PPP) [Time] 64.1 s High 23.0-32.[address] [facility] Comment on above: Order Comment: Speci men Type: BLOOD SPECIMENOrdering Facility: [facility] Address: [address] [place] [address] Performed By: #### 1 4979-9 ####[facility] LABORATORYCLIA [id number] [address] [place] Bacteria CSF Culton 07-30-19 22 Bacteria identified Cx Nom (CSF) CULTURE, CSF: No growth 14 days GRAM STAIN: No cells or organisms seen Gram stain performed on cytospun specimen. Gram stain confirmed by microbiology Normal [facility] Comment on above: Performed By: #### 6 06-4 ####[facility] LABORATORYCLIA [id number] [address] [place] CASE MANAGEMon 07-29-2021 CASE MANAGEM Normal [facility] CBC W Auto Differential pane l (Bld)on 07-29-2021 Basophils (Bld) [#/Vol] 0.03 10*3/uL Normal <0.11 [facility] Comment on above: Order Comment: Speci men Type: BLOOD SPECIMENOrdering Facility: [facility] Address: [address] [place] [address] Performed By: #### 5 7021-8 ####[facility]ORATORYCLIA [id number] [address] Basophils/100 WBC (Bld) 0.3 % Normal [facility] Comment on above: Order Comment: Speci men Type: BLOOD SPECIMENOrdering Facility: [facility] Address: [address] [place] [address] Performed By: #### 5 7021-8 ####[facility]ORATORYCLIA [id number] [address] Differential cell count method Nom (Bld) Auto Normal [facility] Comment on above: Order Comment: Speci men Type: BLOOD SPECIMENOrdering Facility: [facility] Address: [address] [place] [address] Performed By: #### 5 7021-8 ####[facility] LABORATORYCLIA [id number] [address] [place] Eosinophils (Bld) [#/Vol] 0.40 10*3/uL Normal <0.46 [facility] Comment on above: Order Comment: Speci men Type: BLOOD SPECIMENOrdering Facility: [facility] Address: [address] [place] [address] Performed By: #### 5 7021-8 ####[facility]ORATORYCLIA [id number] [address] Eosinophils/100 WBC (Bld) 3.9 % Normal [facility] Comment on above: Order Comment: Speci men Type: BLOOD SPECIMENOrdering Facility: [facility] Address: [address] [place] [address] Performed By: #### 5 7021-8 ####[facility]ORATORYCLIA [id number] [address] Erythrocyte distribution width (RBC) [Ratio] 17.1 % High 11.5-15.0 [facility] Comment on above: Order Comment: Speci men Type: BLOOD SPECIMENOrdering Facility: [facility] Address: [address] [place] [address] Performed By: #### 5 7021-8 ####[facility]ORATORYCLIA [id number] [address] Hematocrit (Bld) [Volume fraction] 32.0 % Low 39.0-51.0 [facility] Comment on above: Order Comment: Speci men Type: BLOOD SPECIMENOrdering Facility: [facility] Address: [address] [place] [address] Performed By: #### 5 7021-8 ####[facility]ATORYCLIA [id number] [address] Hemoglobin (Bld) [Mass/Vol] 9.7 g/dL Low 13.0-17.0 [facility] Comment on above: Order Comment: Speci men Type: BLOOD SPECIMENOrdering Facility: [facility] Address: [address] [place] [address] Performed By: #### 5 7021-8 ####[facility]ORATORYCLIA [id number] [address] IMMATURE GRAN % 0.6 % Normal [facility] Comment on above: Order Comment: Speci men Type: BLOOD SPECIMENOrdering Facility: [facility] Address: [address] [place] [address] Performed By: #### 5 7021-8 ####[facility]ORATORYCLIA [id number] [address] IMMATURE GRAN ABS 0.06 k/uL Normal <0.10 [facility] Comment on above: Order Comment: Speci men Type: BLOOD SPECIMENOrdering Facility: [facility] Address: [address] [place] [address] Performed By: #### 5 7021-8 ####[facility]ORATORYCLIA [id number] [address] Lymphocytes (Bld) [#/Vol] 1.96 10*3/uL Normal 1.00-4.00 [facility] Comment on above: Order Comment: Speci men Type: BLOOD SPECIMENOrdering Facility: [facility] Address: [address] [place] [address] Performed By: #### 5 7021-8 ####[facility]ORATORYCLIA [id number] [address] Lymphocytes/100 WBC (Bld) 19.0 % Normal [facility] Comment on above: Order Comment: Speci men Type: BLOOD SPECIMENOrdering Facility: [facility] Address: [address] [place] [address] Performed By: #### 5 7021-8 ####[facility]ORATORYCLIA [id number] [address] [place] MCH (RBC) [Entitic mass] 28.0 pg Normal 26.0-34.0 [facility] Comment on above: Order Comment: Speci men Type: BLOOD SPECIMENOrdering Facility: [facility] Address: [address] [place] [address] Performed By: #### 5 7021-8 ####[facility]ORATORYCLIA [id number] [address] [place] MCHC (RBC) [Mass/Vol] 30.3 g/dL Low 30.5-36.0 [facility] Comment on above: Order Comment: Speci men Type: BLOOD SPECIMENOrdering Facility: [facility] Address: [address] [place] [address] Performed By: #### 5 7021-8 ####[facility]ORATORYCLIA [id number] [address] [place] MCV (RBC) [Entitic vol] 92.5 fL Normal 80.0-100.0 [facility] Comment on above: Order Comment: Speci men Type: BLOOD SPECIMENOrdering Facility: [facility] Address: [facility] [place] [address] Performed By: #### 5 7021-8 ####[facility] LABORATORYCLIA [id number] [place] [address] [place] Monocytes (Bld) [#/Vol] 0.53 10*3/uL Normal <0.87 [facility] Comment on above: Order Comment: Speci men Type: BLOOD SPECIMENOrdering Facility: [facility] Address: [address] [place] [address] Performed By: #### 5 7021-8 ####[facility]ORATORYCLIA [id number] [address] Monocytes/100 WBC (Bld) 5.2 % Normal [facility] Comment on above: Order Comment: Speci men Type: BLOOD SPECIMENOrdering Facility: [facility] Address: [address] [place] [address] Performed By: #### 5 7021-8 ####[facility]ORATORYCLIA [id number] [place] [address] [place] Neutrophils (Bld) [#/Vol] 7.31 10*3/uL Normal 1.45-7.50 [facility] Comment on above: Order Comment: Speci men Type: BLOOD SPECIMENOrdering Facility: [facility] Address: [address] [place] [address] Performed By: #### 5 7021-8 ####[facility]ORATORYCLIA [id number] [address] [place] Neutrophils/100 WBC (Bld) 71.0 % Normal [facility] Comment on above: Order Comment: Speci men Type: BLOOD SPECIMENOrdering Facility: [facility] Address: [address] [place] [address] Performed By: #### 5 7021-8 ####[facility]ORATORYCLIA [id number] [address] [place] Nucleated RBC (Bld) [#/Vol] 10*3/uL Normal <0.01 [facility] Comment on above: Order Comment: Speci men Type: BLOOD SPECIMENOrdering Facility: [facility] Address: [address] [place] [address] Performed By: #### 5 7021-8 ####[facility]ORATORYCLIA [id number] [address] [place] Nucleated RBC/100 WBC (Bld) [Ratio] 0.0 /100 WBC Normal [facility] Comment on above: Order Comment: Speci men Type: BLOOD SPECIMENOrdering Facility: [facility] Address: [address] [place] [address] Performed By: #### 5 7021-8 ####[facility]ORATORYCLIA [id number] [address] Platelet mean volume (Bld) [Entitic vol] 11.2 fL Normal 9.0-12.7 [facility] Comment on above: Order Comment: Speci men Type: BLOOD SPECIMENOrdering Facility: [facility] Address: [address] [place] [address] Performed By: #### 5 7021-8 ####[facility]ORATORYCLIA [id number] [address] [place] Platelets (Bld) [#/Vol] 276 10*3/uL Normal 150-400 [facility] Comment on above: Order Comment: Speci men Type: BLOOD SPECIMENOrdering Facility: [facility] Address: [address] [place] [address] Performed By: #### 5 7021-8 ####[facility]ORATORYCLIA [id number] [address] [place] RBC (Bld) [#/Vol] 3.46 10*6/uL Low 4.20-6.00 [facility] Comment on above: Order Comment: Speci men Type: BLOOD SPECIMENOrdering Facility: [facility] Address: [address] [place] [address] Performed By: #### 5 7021-8 ####[facility]ORATORYCLIA [id number] [address] STATES OF [facility] WBC (Bld) [#/Vol] 10.29 10*3/uL Normal 3.70-11.00 [facility] Comment on above: Order Comment: Speci men Type: BLOOD SPECIMENOrdering Facility: [facility] Address: [address] [place] [address] Performed By: #### 5 7021-8 ####[facility]ORATORYCLIA [id number] [address] NURSING PROGon 07-29-2021 NURSING PROG Normal [facility] THERAPY NTon 07-29-2021 THERAPY NT Normal [facility] aPTT PPPon 07-29-2021 aPTT Coag (PPP) [Time] 59.2 s High 23.0-32.[address] [facility] Comment on above: Order Comment: Speci men Type: BLOOD SPECIMENOrdering Facility: [facility] Address: [address] [place] [address] Performed By: #### 1 4979-9 ####[facility]ORATORYCLIA [id number] [address] [place] ALLIED HEALTHon 07-28-2021 ALLIED HEALTH Normal [facility] Basic metabolic 2000 panelon 07-28-2021 Anion gap [Moles/Vol] 7 mmol/L Low 9-18 [facility] Comment on above: Order Comment: Speci men Type: BLOOD SPECIMENOrdering Facility: [facility] Address: [address] [place] [address] Performed By: #### 1 4338-8, 57848-4, 2777-1, 25314-8 ####[facility]ORATORYCLIA [id number] [address] STATES [facility] Calcium [Mass/Vol] 9.0 mg/dL Normal 8.5-10.2 [facility] Comment on above: Order Comment: Speci men Type: BLOOD SPECIMENOrdering Facility: [facility] Address: [address] [place] [address] Performed By: #### 1 4338-8, 34153-7, 2777-1, 48988-9 ####[facility]ORATORYCLIA [id number] [place] [address] [place] Chloride [Moles/Vol] 94 mmol/L Low 97-105 [facility] Comment on above: Order Comment: Speci men Type: BLOOD SPECIMENOrdering Facility: [facility] Address: [address] [place] [address] Performed By: #### 1 4338-8, 34298-2, 2777-1, 37094-1 ####[facility]ORATORYCLIA [id number] [address] STATES OF [facility] CO2 [Moles/Vol] 31 mmol/L High 22-30 [facility] Comment on above: Order Comment: Speci men Type: BLOOD SPECIMENOrdering Facility: [facility] Address: [address] [place] [address] Performed By: #### 1 4338-8, 15418-2, 2777-1, 75215-0 ####[facility]ORATORYCLIA [id number] [place] [address] [place] Creatinine [Mass/Vol] 0.75 mg/dL Normal 0.73-1.22 [facility] Comment on above: Order Comment: Speci men Type: BLOOD SPECIMENOrdering Facility: [facility] Address: [address] [place] [address] Performed By: #### 1 4338-8, 37034-9, 2777-1, 20924-5 ####[facility]ORATORYCLIA [id number] [address] STATES OF [facility] ESTIMATED GLOMERULAR FILTRATION RATE 98 mL/min/1.73m??? Normal >=60 [facility] Comment on above: Order Comment: Shira feldman Type: BLOOD SPECIMENOrdering Facility: [facility] Address: [address] [place], [place] [address] Result Comment: Luzmaria mated Glomerular Filtration Rate [...] actual GFR. Performed By: #### 1 4338-8, 18212-6, 2777-1, 12179-2 ####[facility] SERVICESCLIA [id number] [place] [address] [place] Glucose [Mass/Vol] 122 mg/dL High 74-99 [facility] Comment on above: Order Comment: Shira feldman Type: BLOOD SPECIMENOrdering Facility: [facility] Address: [address] [place] [address] Result Comment: The [employer] (ADA) [...] 2016.39(Suppl 1). Performed By: #### 1 4338-8, 60447-5, 2777-1, 30168-2 ####[facility] SERVICESCLIA [id number] [place] [id number] [place] Potassium [Moles/Vol] 4.0 mmol/L Normal 3.7-5.1 [facility] Comment on above: Order Comment: Shira men Type: BLOOD SPECIMENOrdering Facility: [facility] Address: [address] [place] [address] Performed By: #### 1 4338-8, 37308-3, 2777-, 37369-0 ####[facility]ORATORYCLIA [id number] [address] STATES OF [facility] Sodium [Moles/Vol] 132 mmol/L Low 136-144 [facility] Comment on above: Order Comment: Speci men Type: BLOOD SPECIMENOrdering Facility: [facility] Address: [address] [place] [address] Performed By: #### 1 4338-8, , 2777-, 92928-5 ####[facility]ORATORYCLIA [id number] [address] [place] Urea nitrogen [Mass/Vol] 34 mg/dL High 01-28 [facility] Comment on above: Order Comment: Speci men Type: BLOOD SPECIMENOrdering Facility: [facility] Address: [address] [place] [address] Performed By: #### 1 4338-8, 51118-8, 2777-, 61586-6 ####[facility]ATORYCLIA [id number] [address] [place] CBC W Auto Differential pane l (Bld)on 07-28-2021 Basophils (Bld) [#/Vol] 0.04 10*3/uL Normal <0.11 [facility] Comment on above: Order Comment: Speci men Type: BLOOD SPECIMENOrdering Facility: [facility] Address: [address] [place] [address] Performed By: #### 5 7021-8 ####[facility]ORATORYCLIA [id number] [address] STATES OF [facility] Basophils/100 WBC (Bld) 0.5 % Normal [facility] Comment on above: Order Comment: Speci men Type: BLOOD SPECIMENOrdering Facility: [facility] Address: [address] [place] [address] Performed By: #### 5 7021-8 ####[facility]ORATORYCLIA [id number] [address] Differential cell count method Nom (Bld) Auto Normal [facility] Comment on above: Order Comment: Speci men Type: BLOOD SPECIMENOrdering Facility: [facility] Address: [address] [place] [address] Performed By: #### 5 7021-8 ####[facility]ORATORYCLIA [id number] [address] Eosinophils (Bld) [#/Vol] 0.30 10*3/uL Normal <0.46 [facility] Comment on above: Order Comment: Speci men Type: BLOOD SPECIMENOrdering Facility: [facility] Address: [address] [place] [address] Performed By: #### 5 7021-8 ####[facility]ORATORYCLIA [id number] [address] Eosinophils/100 WBC (Bld) 3.4 % Normal [facility] Comment on above: Order Comment: Speci men Type: BLOOD SPECIMENOrdering Facility: [facility] Address: [address] [place] [address] Performed By: #### 5 7021-8 ####[facility]ORATORYCLIA [id number] [address] Erythrocyte distribution width (RBC) [Ratio] 16.9 % High 11.5-15.0 [facility] Comment on above: Order Comment: Speci men Type: BLOOD SPECIMENOrdering Facility: [facility] Address: [address] [place] [address] Performed By: #### 5 7021-8 ####[facility]ORATORYCLIA [id number] [address] Hematocrit (Bld) [Volume fraction] 30.3 % Low 39.0-51.0 [facility] Comment on above: Order Comment: Speci men Type: BLOOD SPECIMENOrdering Facility: [facility] Address: [address] [place] [address] Performed By: #### 5 7021-8 ####[facility]ORATORYCLIA [id number] [address] Hemoglobin (Bld) [Mass/Vol] 9.2 g/dL Low 13.0-17.0 [facility] Comment on above: Order Comment: Speci men Type: BLOOD SPECIMENOrdering Facility: [facility] Address: [address] [place] [address] Performed By: #### 5 7021-8 ####[facility]ORATORYCLIA [id number] [address] IMMATURE GRAN % 0.6 % Normal [facility] Comment on above: Order Comment: Speci men Type: BLOOD SPECIMENOrdering Facility: [facility] Address: [address] [place] [address] Performed By: #### 5 7021-8 ####[facility]ORATORYCLIA [id number] [address] IMMATURE GRAN ABS 0.05 k/uL Normal <0.10 [facility] Comment on above: Order Comment: Speci men Type: BLOOD SPECIMENOrdering Facility: [facility] Address: [address] [place] [address] Performed By: #### 5 7021-8 ####[facility]ORATORYCLIA [id number] [address] Lymphocytes (Bld) [#/Vol] 1.68 10*3/uL Normal 1.00-4.00 [facility] Comment on above: Order Comment: Speci men Type: BLOOD SPECIMENOrdering Facility: [facility] Address: [address] [place] [address] Performed By: #### 5 7021-8 ####[facility]ORATORYCLIA [id number] [address] Lymphocytes/100 WBC (Bld) 19.2 % Normal [facility] Comment on above: Order Comment: Speci men Type: BLOOD SPECIMENOrdering Facility: [facility] Address: [address] [place] [address] Performed By: #### 5 7021-8 ####[facility]ORATORYCLIA [id number] [address] MCH (RBC) [Entitic mass] 28.4 pg Normal 26.0-34.0 [facility] Comment on above: Order Comment: Speci men Type: BLOOD SPECIMENOrdering Facility: [facility] Address: [address] [place] [address] Performed By: #### 5 7021-8 ####[facility]ORATORYCLIA [id number] [address] MCHC (RBC) [Mass/Vol] 30.4 g/dL Low 30.5-36.0 [facility] Comment on above: Order Comment: Speci men Type: BLOOD SPECIMENOrdering Facility: [facility] Address: [address] [place] [address] Performed By: #### 5 7021-8 ####[facility] LABORATORYCLIA [id number] [address] MCV (RBC) [Entitic vol] 93.5 fL Normal 80.0-100.0 [facility] Comment on above: Order Comment: Speci men Type: BLOOD SPECIMENOrdering Facility: [facility] Address: [address] [place] [address] Performed By: #### 5 7021-8 ####[facility] LABORATORYCLIA [id number] [address] Monocytes (Bld) [#/Vol] 0.58 10*3/uL Normal <0.87 [facility] Comment on above: Order Comment: Speci men Type: BLOOD SPECIMENOrdering Facility: [facility] Address: [address] [place] [address] Performed By: #### 5 7021-8 ####[facility] HE[facility] SERVICESCLIA [id number] [address] [place] Monocytes/100 WBC (Bld) 6.6 % Normal [facility] Comment on above: Order Comment: Speci men Type: BLOOD SPECIMENOrdering Facility: [facility] Address: [address] [place] [address] Performed By: #### 5 7021-8 ####[facility] LABORATORYCLIA [id number] [place] [address] [place] Neutrophils (Bld) [#/Vol] 6.11 10*3/uL Normal 1.45-7.50 [facility] Comment on above: Order Comment: Speci men Type: BLOOD SPECIMENOrdering Facility: [facility] Address: [address] [place] [address] Performed By: #### 5 7021-8 ####[facility] LABORATORYCLIA [id number] [address] Neutrophils/100 WBC (Bld) 69.7 % Normal [facility] Comment on above: Order Comment: Speci men Type: BLOOD SPECIMENOrdering Facility: [facility] Address: [address] [place] [address] Performed By: #### 5 7021-8 ####[facility] LABORATORYCLIA [id number] [address] [place] Nucleated RBC (Bld) [#/Vol] 10*3/uL Normal <0.01 [facility] Comment on above: Order Comment: Speci men Type: BLOOD SPECIMENOrdering Facility: [facility] Address: [address] [place] [address] Performed By: #### 5 7021-8 ####[facility]ORATORYCLIA [id number] [address] [place] Nucleated RBC/100 WBC (Bld) [Ratio] 0.0 /100 WBC Normal [facility] Comment on above: Order Comment: Speci men Type: BLOOD SPECIMENOrdering Facility: [facility] Address: [address] Performed By: #### 5 7021-8 ####[facility] LABORATORYCLIA [id number] [address] STATES [facility] Platelet mean volume (Bld) [Entitic vol] 11.3 fL Normal 9.0-12.7 [facility] Comment on above: Order Comment: Speci men Type: BLOOD SPECIMENOrdering Facility: [facility] Address: [address] [place] [address] Performed By: #### 5 7021-8 ####[facility] LABORATORYCLIA [id number] [place] [address] [place] Platelets (Bld) [#/Vol] 238 10*3/uL Normal 150-400 [facility] Comment on above: Order Comment: Speci men Type: BLOOD SPECIMENOrdering Facility: [facility] Address: [address] [place] [address] Performed By: #### 5 7021-8 ####[facility] LABORATORYCLIA [id number] [address] [place] RBC (Bld) [#/Vol] 3.24 10*6/uL Low 4.20-6.00 [facility] Comment on above: Order Comment: Speci men Type: BLOOD SPECIMENOrdering Facility: [facility] Address: [address] [place] [address] Performed By: #### 5 7021-8 ####[facility] LABORATORYCLIA [id number] [address] [place] WBC (Bld) [#/Vol] 8.76 10*3/uL Normal 3.70-11.00 [facility] Comment on above: Order Comment: Speci men Type: BLOOD SPECIMENOrdering Facility: [facility] Address: [address] [place], [place] [address] Performed By: #### 5 7021-8 ####[facility] LABORATORYCLIA [id number] [address] [place] MRI BRAIN WO/W IVCONon 07-28 MRI BRAIN WO/W IVCON Normal [facility] Magnesium SerPl-mCncon 07-28 Magnesium [Mass/Vol] 2.5 mg/dL High 1.7-2.3 [facility] Comment on above: Order Comment: Speci men Type: BLOOD SPECIMENOrdering Facility: [facility] Address: [address] [place] [address] Performed By: #### 1 4338-8, 12472-5, 277-1, 32452-8 ####[facility] LABORATORYCLIA [id number] [address] OF [facility] NURSING PROGon 07-28-2021 NURSING PROG Normal [facility] NURSING PROG Normal [facility] Phosphate SerPl-mCncon 07-28 Phosphate [Mass/Vol] 2.8 mg/dL Normal 2.7-4.8 [facility] Comment on above: Order Comment: Speci men Type: BLOOD SPECIMENOrdering Facility: [facility] Address: [address] [place] [address] Performed By: #### 1 4338-8, 37692-4, 2776-05, 36495-6 ####[facility] LABORATORYCLIA [id number] [address] [place] Prealbumin [Mass/Vol]on 07-06 Prealbumin Nephelometry [Mass/Vol] 25 mg/dL Normal 17-36 [facility] Comment on above: Order Comment: Speci men Type: BLOOD SPECIMENOrdering Facility: [facility] Address: [facility] [place] [address] Performed By: #### 1 4338-8, 88125-5, 277-, 10987-8 ####[facility] LABORATORYCLIA [id number] [address] [place] aPTT PPPon 07-28-2021 aPTT Coag (PPP) [Time] 53.0 s High 23.0-32.[address] [facility] Comment on above: Order Comment: Speci men Type: BLOOD SPECIMENOrdering Facility: [facility] Address: [address] [place] [address] Performed By: #### 1 4979-9 ####[facility] LABORATORYCLIA [id number] [address] [place] aPTT Coag (PPP) [Time] 57.2 s High 23.0-32.[address] [facility] Comment on above: Order Comment: Speci men Type: BLOOD SPECIMENOrdering Facility: [facility] Address: [address] [place] [address] Performed By: #### 1 4979-9 ####[facility] LABORATORYCLIA [id number] [address] Bacteria CSF Culton 07-28-19 Bacteria identified Cx Nom (CSF) CULTURE, CSF: No growth 14 days GRAM STAIN: No organisms seen Rare Polymorphonuclear leukocytes Rare Red Blood Cells Gram stain performed on cytospun specimen. Normal [facility] Comment on above: Performed By: #### 6 06-4 ####[facility] LABORATORYCLIA [id number] [address] Bacteria Spec Resp Culton Bacteria identified Respiratory culture Nom (Unsp spec) CULTURE, RESPIRATORY: Rare Normal respiratory chris present GRAM STAIN: No organisms seen Rare Polymorphonuclear leukocytes Rare Epithelial cells Normal [facility] Comment on above: Performed By: #### 3 2355-0 ####[facility]ORATORYCLIA [id number] [address] CASE MANAGEMon 07-27-2021 CASE MANAGEM Normal [facility] CBC W Auto Differential pane l (Bld)on 07-27-2021 Basophils (Bld) [#/Vol] 0.04 10*3/uL Normal <0.11 [facility] Comment on above: Order Comment: Speci men Type: BLOOD SPECIMENOrdering Facility: [facility] Address: [address] [place] [address] Performed By: #### 5 7021-8 ####[facility] SERVICESCLIA [id number] [address] [place] Basophils/100 WBC (Bld) 0.4 % Normal [facility] Comment on above: Order Comment: Speci men Type: BLOOD SPECIMENOrdering Facility: [facility] Address: [address] [place] [address] Performed By: #### 5 7021-8 ####[facility]ORATORYCLIA [id number] [address] Differential cell count method Nom (Bld) Auto Normal [facility] Comment on above: Order Comment: Speci men Type: BLOOD SPECIMENOrdering Facility: [facility] Address: [address] [place] [address] Performed By: #### 5 7021-8 ####[facility] LABORATORYCLIA [id number] [address] [place] Eosinophils (Bld) [#/Vol] 0.50 10*3/uL High <0.46 [facility] Comment on above: Order Comment: Speci men Type: BLOOD SPECIMENOrdering Facility: [facility] Address: [address] [place] [address] Performed By: #### 5 7021-8 ####[facility] LABORATORYCLIA [id number] [address] [place] Eosinophils/100 WBC (Bld) 5.2 % Normal [facility] Comment on above: Order Comment: Speci men Type: BLOOD SPECIMENOrdering Facility: [facility] Address: [address] [place] [address] Performed By: #### 5 7021-8 ####[facility]ORATORYCLIA [id number] [address] Erythrocyte distribution width (RBC) [Ratio] 16.8 % High 11.5-15.0 [facility] Comment on above: Order Comment: Speci men Type: BLOOD SPECIMENOrdering Facility: [facility] Address: [address] [place] [address] Performed By: #### 5 7021-8 ####[facility]ORATORYCLIA [id number] [address] Hematocrit (Bld) [Volume fraction] 29.8 % Low 39.0-51.0 [facility] Comment on above: Order Comment: Speci men Type: BLOOD SPECIMENOrdering Facility: [facility] Address: [address] [place] [address] Performed By: #### 5 7021-8 ####[facility]ORATORYCLIA [id number] [address] Hemoglobin (Bld) [Mass/Vol] 9.0 g/dL Low 13.0-17.0 [facility] Comment on above: Order Comment: Speci men Type: BLOOD SPECIMENOrdering Facility: [facility] Address: [address] [place] [address] Performed By: #### 5 7021-8 ####[facility]ORATORYCLIA [id number] [address] IMMATURE GRAN % 0.6 % Normal [facility] Comment on above: Order Comment: Speci men Type: BLOOD SPECIMENOrdering Facility: [facility] Address: [address] [place] [address] Performed By: #### 5 7021-8 ####[facility]ORATORYCLIA [id number] [address] IMMATURE GRAN ABS 0.06 k/uL Normal <0.10 [facility] Comment on above: Order Comment: Speci men Type: BLOOD SPECIMENOrdering Facility: [facility] Address: [address] [place] [address] Performed By: #### 5 7021-8 ####[facility]ORATORYCLIA [id number] [address] Lymphocytes (Bld) [#/Vol] 1.73 10*3/uL Normal 1.00-4.00 [facility] Comment on above: Order Comment: Speci men Type: BLOOD SPECIMENOrdering Facility: [facility] Address: [address] [place] [address] Performed By: #### 5 7021-8 ####[facility]ORATORYCLIA [id number] [address] Lymphocytes/100 WBC (Bld) 17.9 % Normal [facility] Comment on above: Order Comment: Speci men Type: BLOOD SPECIMENOrdering Facility: [facility] Address: [address] [place] [address] Performed By: #### 5 7021-8 ####[facility]ORATORYCLIA [id number] [address] MCH (RBC) [Entitic mass] 28.1 pg Normal 26.0-34.0 [facility] Comment on above: Order Comment: Speci men Type: BLOOD SPECIMENOrdering Facility: [facility] Address: [address] [place] [address] Performed By: #### 5 7021-8 ####[facility] LABORATORYCLIA [id number] [address] STATES OF [facility] MCHC (RBC) [Mass/Vol] 30.2 g/dL Low 30.5-36.0 [facility] Comment on above: Order Comment: Speci men Type: BLOOD SPECIMENOrdering Facility: [facility] Address: [address] [place] [address] Performed By: #### 5 7021-8 ####[facility]ORATORYCLIA [id number] [address] STATES OF [facility] MCV (RBC) [Entitic vol] 93.1 fL Normal 80.0-100.0 [facility] Comment on above: Order Comment: Speci men Type: BLOOD SPECIMENOrdering Facility: [facility] Address: [address] [place] [address] Performed By: #### 5 7021-8 ####[facility] LABORATORYCLIA [id number] [place] [address] [place] Monocytes (Bld) [#/Vol] 0.59 10*3/uL Normal <0.87 [facility] Comment on above: Order Comment: Speci men Type: BLOOD SPECIMENOrdering Facility: [facility] Address: [address] [address] Performed By: #### 5 7021-8 ####[facility]ORATORYCLIA [id number] [address] [place] Monocytes/100 WBC (Bld) 6.1 % Normal [facility] Comment on above: Order Comment: Speci men Type: BLOOD SPECIMENOrdering Facility: [facility] Address: [address] [place] [address] Performed By: #### 5 7021-8 ####[facility]ORATORYCLIA [id number] [address] [place] Neutrophils (Bld) [#/Vol] 6.75 10*3/uL Normal 1.45-7.50 [facility] Comment on above: Order Comment: Speci men Type: BLOOD SPECIMENOrdering Facility: [facility] Address: [address] [place] [address] Performed By: #### 5 7021-8 ####[facility]ORATORYCLIA [id number] [address] [place] Neutrophils/100 WBC (Bld) 69.8 % Normal [facility] Comment on above: Order Comment: Speci men Type: BLOOD SPECIMENOrdering Facility: [facility] Address: [address] [address] Performed By: #### 5 7021-8 ####[facility]ORATORYCLIA [id number] [place] [address] [place] Nucleated RBC (Bld) [#/Vol] 10*3/uL Normal <0.01 [facility] Comment on above: Order Comment: Speci men Type: BLOOD SPECIMENOrdering Facility: [facility] Address: [address] [place] [address] Performed By: #### 5 7021-8 ####[facility]ORATORYCLIA [id number] [address] OF [place] Nucleated RBC/100 WBC (Bld) [Ratio] 0.0 /100 WBC Normal [facility] Comment on above: Order Comment: Speci men Type: BLOOD SPECIMENOrdering Facility: [facility] Address: [address] [place] [address] Performed By: #### 5 7021-8 ####[facility]ORATORYCLIA [id number] [address] [place] Platelet mean volume (Bld) [Entitic vol] 11.3 fL Normal 9.0-12.7 [facility] Comment on above: Order Comment: Speci men Type: BLOOD SPECIMENOrdering Facility: [facility] Address: [address] [place] [address] Performed By: #### 5 7021-8 ####[facility]ORATORYCLIA [id number] [address] [place] Platelets (Bld) [#/Vol] 227 10*3/uL Normal 150-400 [facility] Comment on above: Order Comment: Speci men Type: BLOOD SPECIMENOrdering Facility: [facility] Address: [address] [place] [address] Performed By: #### 5 7021-8 ####[facility]ORATORYCLIA [id number] [address] [place] RBC (Bld) [#/Vol] 3.20 10*6/uL Low 4.20-6.00 [facility] Comment on above: Order Comment: Speci men Type: BLOOD SPECIMENOrdering Facility: [facility] Address: [address] [place] [address] Performed By: #### 5 7021-8 ####[facility]ORATORYCLIA [id number] [address] [place] WBC (Bld) [#/Vol] 9.67 10*3/uL Normal 3.70-11.00 [facility] Comment on above: Order Comment: Speci men Type: BLOOD SPECIMENOrdering Facility: [facility] Address: [address] [place] [address] Performed By: #### 5 7021-8 ####[facility]ORATORYCLIA [id number] [address] [place] CONSULT PROGon 07-27-2021 CONSULT PROG Normal [facility] CSF MANUAL DIFFon 07-27-2021 DIF TTL, CSF 100 cells counted Normal [facility] Comment on above: Order Comment: Speci men Type: CEREBROSPINAL FLUIDOrdering Facility: [facility] Address: [address] [place] [address] Performed By: #### L GG1995, 47444-1, [id number] ####[facility] LABORATORYCLIA [id number] [place] [address] [place] LYMPH%, CSF 75 % Normal 50-90 [facility] Comment on above: Order Comment: Speci men Type: CEREBROSPINAL FLUIDOrdering Facility: [facility] Address: [address] [place] [address] Performed By: #### L VL7298, 67920-5, [id number] ####[facility]ORATORYCLIA [id number] [place] [address] [place] MONO%, CSF 22 % Normal 10-50 [facility] Comment on above: Order Comment: Speci men Type: CEREBROSPINAL FLUIDOrdering Facility: [facility] Address: [address] [place] [address] Performed By: #### L [id number], 17706-8, [id number] ####[facility]ORATORYCLIA [id number] [address] [place] NEUT%, CSF 2 % Normal 0-3 [facility] Comment on above: Order Comment: Speci men Type: CEREBROSPINAL FLUIDOrdering Facility: [facility] Address: [address] [place] [address] Performed By: #### L [id number], 92718-0, [id number] ####[facility]ORATORYCLIA [id number] [place] [address] [place] OTHER CL%, CSF 1 % Normal [facility] Comment on above: Order Comment: Speci men Type: CEREBROSPINAL FLUIDOrdering Facility: [facility] Address: [address] [place] [address] Result Comment: Path ologist review of microscopy results to follow Performed By: #### L MA8659, 04912-2, [id number] ####[facility]ORATORYCLIA [id number] [place] [address] [place] CSF PATHOLOGIST INTERP (LAB REFLEX ORDER-NO BILL)on 07-27-2021 CSF STAFF REVIEW Negative Normal [facility] Comment on above: Order Comment: Speci men Type: CEREBROSPINAL FLUIDOrdering Facility: [facility] Address: [address] [place] [address] Performed By: #### L OG5862, 66055-3, [id number] ####[facility]ORATORYCLIA [id number] [address] Pathologist name Reviewed by Amador Stevens MD Normal [facility] Comment on above: Order Comment: Speci men Type: CEREBROSPINAL FLUIDOrdering Facility: [facility] Address: [address] [place] [address] Performed By: #### L LE9144, 17260-5, [id number] ####[facility]ORATORYCLIA [id number] [address] Cell count panel (CSF)on Clarity (CSF) Clear Normal Clear [facility] Comment on above: Order Comment: Speci men Type: CEREBROSPINAL FLUIDOrdering Facility: [facility] Address: [address] [place] [address] Performed By: #### L RI6417, 32089-9, [id number] ####[facility]ORATORYCLIA [id number] [address] [place] Clarity (Unsp spec) Not Indicated Normal Clear [facility] Comment on above: Order Comment: Speci men Type: CEREBROSPINAL FLUIDOrdering Facility: [facility] Address: [address] [address] Performed By: #### L [id number], 62294-5, [id number] ####[facility]ORATORYCLIA [id number] [address] Color (CSF) Colorless Normal Colorless [facility] Comment on above: Order Comment: Speci men Type: CEREBROSPINAL FLUIDOrdering Facility: [facility] Address: [address] [place] [address] Performed By: #### L [id number], 07236-8, [id number] ####[facility]ORATORYCLIA [id number] [address] Color (Spun CSF) Not Indicated Normal Colorless [facility] Comment on above: Order Comment: Speci men Type: CEREBROSPINAL FLUIDOrdering Facility: [facility] Address: [address] [place] [address] Performed By: #### L MM1556, 68905-3, [id number] ####[facility]ORATORYCLIA [id number] [address] CSF TUBE NUMBER [employer] Normal [facility] Comment on above: Order Comment: Speci men Type: CEREBROSPINAL FLUIDOrdering Facility: [facility] Address: [address] [place] [address] Performed By: #### L BC5053, 47767-6, [id number] ####[facility]ATORYCLIA [id number] [address] RBC Manual cnt (CSF) [#/Vol] 39 cells/uL High 0-5 [facility] Comment on above: Order Comment: Speci men Type: CEREBROSPINAL FLUIDOrdering Facility: [facility] Address: [address] [place] [address] Performed By: #### L GW2959, 57752-5, [id number] ####[facility]ATORYCLIA [id number] [address] [place] WBC Manual cnt (CSF) [#/Vol] 14 cells/uL High 0-5 [facility] Comment on above: Order Comment: Speci men Type: CEREBROSPINAL FLUIDOrdering Facility: [facility] Address: [address] [place] [address] Performed By: #### L OU7981, 57446-9, [id number] ####[facility]ORATORYCLIA [id number] [place] [address] [place] Glucose CSF-mCncon 2 Glucose (CSF) [Mass/Vol] 64 mg/dL Normal 40-70 [facility] Comment on above: Order Comment: Speci men Type: CEREBROSPINAL FLUIDOrdering Facility: [facility] Address: [address] [place] [address] Result Comment: Lumb ar CSF glucose values of healthy patients are approximately 60% of the plasma values and must always be compared with a concurrently measured plasma value for adequate clinical interpretation.References: 1. Glucose HK (GLUC3) [package insert V 12.0 [place]]. [employer], [place], [place]. September 2015. 2. Michelle Moore, Loki, H. (2015). Chapter 7: Glucose and Lactate. Marianela Alcocer al.(eds.), Cerebrospinal Fluid in Clinical Neurology. [place]: [employer]. Performed By: #### 2 342-4, 2880-3 ####[facility]ORATORYCLIA [id number] [place] [address] [place] NUTRITIONon 07-27-2021 NUTRITION Normal [facility] Prot CSF-mCncon 07-27-2021 Protein (CSF) [Mass/Vol] 58 mg/dL High 15-45 [facility] Comment on above: Order Comment: Speci men Type: CEREBROSPINAL FLUIDOrdering Facility: [facility] Address: [address] [place] [address] Performed By: #### 2 342-4, 2880-3 ####[facility]ORATORYCLIA [id number] [address] [place] aPTT PPPon 07-27-2021 aPTT Coag (PPP) [Time] 68.4 s High 23.0-32.[address] [facility] Comment on above: Order Comment: Speci men Type: BLOOD SPECIMENOrdering Facility: [facility] Address: [address] [place] [address] Performed By: #### 1 4979-9 ####[facility]ORATORYCLIA [id number] [address] aPTT Coag (PPP) [Time] 51.3 s High 23.0-32.[address] [facility] Comment on above: Order Comment: Speci men Type: BLOOD SPECIMENOrdering Facility: [facility] Address: [address] [place] [address] Performed By: #### 1 4979-9 ####[facility]ORATORYCLIA [id number] [address] ALLIED HEALTHon 07-26-2021 ALLIED HEALTH HNO ID: [id number] Author: Stephanie Maldonado, chute operator Service: Radiology Author Type: Gas Specialist Type: Allied Health Filed: 07/26/2021 4:10 PM Note Text: Spoke with nurse. Pt getting new EVD today. Try tomorrow. Normal [facility] Bacteria CSF Culton 07-27-19 Bacteria identified Cx Nom (CSF) Abnormal [facility] Comment on above: Performed By: #### 6 06-4 ####[facility]ORATORYCLIA [id number] [address] STATES OF [facility] Basic metabolic 2000 panelon 07-26-2021 Anion gap [Moles/Vol] 6 mmol/L Low 9-18 [facility] Comment on above: Order Comment: Speci men Type: BLOOD SPECIMENOrdering Facility: [facility] Address: [address] [place] [address] Performed By: #### 2 4321-2 ####[facility]ORATORYCLIA [id number] [address] Calcium [Mass/Vol] 9.2 mg/dL Normal 8.5-10.2 [facility] Comment on above: Order Comment: Speci men Type: BLOOD SPECIMENOrdering Facility: [facility] Address: [address] [place] [address] Performed By: #### 2 4321-2 ####[facility]ORATORYCLIA [id number] [place] [address] [place] Chloride [Moles/Vol] 99 mmol/L Normal 97-105 [facility] Comment on above: Order Comment: Speci men Type: BLOOD SPECIMENOrdering Facility: [facility] Address: [address] [place] [address] Performed By: #### 2 4321-2 ####[facility]ORATORYCLIA [id number] [place] [address] [place] CO2 [Moles/Vol] 32 mmol/L High 22-30 [facility] Comment on above: Order Comment: Speci men Type: BLOOD SPECIMENOrdering Facility: [facility] Address: [address] [place] [address] Performed By: #### 2 4321-2 ####[facility]ORATORYCLIA [id number] [address] [place] Creatinine [Mass/Vol] 0.74 mg/dL Normal 0.73-1.22 [facility] Comment on above: Order Comment: Speci men Type: BLOOD SPECIMENOrdering Facility: [facility] Address: [address] [place] [address] Performed By: #### 2 4321-2 ####[facility]ORATORYCLIA [id number] [address] [place] ESTIMATED GLOMERULAR FILTRATION RATE 98 mL/min/1.73m??? Normal >=60 [facility] Comment on above: Order Comment: Speci men Type: BLOOD SPECIMENOrdering Facility: [facility] Address: [address] [place] [address] Result Comment: Luzmaria mated Glomerular Filtration Rate [...] actual GFR. Performed By: #### 2 4321-2 ####[facility]ORATORYCLIA [id number] [place] [address] [place] Glucose [Mass/Vol] 126 mg/dL High 74-99 [facility] Comment on above: Order Comment: Speci men Type: BLOOD SPECIMENOrdering Facility: [facility] Address: [address] [place], [place] [id number] Result Comment: The [place] [employer] (ADA) [...] 2016.39(Suppl 1). Performed By: #### 2 4321-2 ####[facility]ORATORYCLIA [id number] [place] [address] [place] Potassium [Moles/Vol] 4.2 mmol/L Normal 3.7-5.1 [facility] Comment on above: Order Comment: Speci men Type: BLOOD SPECIMENOrdering Facility: [facility] Address: [address] [place] [address] Performed By: #### 2 4321-2 ####[facility]ORATORYCLIA [id number] [place] [address] [place] Sodium [Moles/Vol] 137 mmol/L Normal 136-144 [facility] Comment on above: Order Comment: Speci men Type: BLOOD SPECIMENOrdering Facility: [facility] Address: [address] [place] [address] Performed By: #### 2 4321-2 ####[facility]ORATORYCLIA [id number] [address] STATES [facility] Urea nitrogen [Mass/Vol] 36 mg/dL High 9-24 [facility] Comment on above: Order Comment: Speci men Type: BLOOD SPECIMENOrdering Facility: [facility] Address: [address] [place] [address] Performed By: #### 2 4321-2 ####[facility]ORATORYCLIA [id number] [address] [place] CBC W Auto Differential pane l (Bld)on 07-26-2021 Basophils (Bld) [#/Vol] 0.04 10*3/uL Normal <0.11 [facility] Comment on above: Order Comment: Speci men Type: BLOOD SPECIMENOrdering Facility: [facility] Address: [address] [place] [address] Performed By: #### 5 7021-8 ####[facility]ORATORYCLIA [id number] [address] [place] Basophils/100 WBC (Bld) 0.4 % Normal [facility] Comment on above: Order Comment: Speci men Type: BLOOD SPECIMENOrdering Facility: [facility] Address: [address] [place] [address] Performed By: #### 5 7021-8 ####[facility]ORATORYCLIA [id number] [address] STATES [facility] Differential cell count method Nom (Bld) Auto Normal [facility] Comment on above: Order Comment: Speci men Type: BLOOD SPECIMENOrdering Facility: [facility] Address: [address] [place] [address] Performed By: #### 5 7021-8 ####[facility]ORATORYCLIA [id number] [place] [address] [place] Eosinophils (Bld) [#/Vol] 0.63 10*3/uL High <0.46 [facility] Comment on above: Order Comment: Speci men Type: BLOOD SPECIMENOrdering Facility: [facility] Address: [address] [place] [address] Performed By: #### 5 7021-8 ####[facility]ORATORYCLIA [id number] [address] STATES [facility] Eosinophils/100 WBC (Bld) 5.8 % Normal [facility] Comment on above: Order Comment: Speci men Type: BLOOD SPECIMENOrdering Facility: [facility] Address: [address] [place] [address] Performed By: #### 5 7021-8 ####[facility]ORATORYCLIA [id number] [address] [place] Erythrocyte distribution width (RBC) [Ratio] 16.8 % High 11.5-15.0 [facility] Comment on above: Order Comment: Speci men Type: BLOOD SPECIMENOrdering Facility: [facility] Address: [address] [place] [address] Performed By: #### 5 7021-8 ####[facility]ORATORYCLIA [id number] [address] STATES OF [facility] Hematocrit (Bld) [Volume fraction] 31.2 % Low 39.0-51.0 [facility] Comment on above: Order Comment: Speci men Type: BLOOD SPECIMENOrdering Facility: [facility] Address: [address] [place] [address] Performed By: #### 5 7021-8 ####[facility]ORATORYCLIA [id number] [address] [place] Hemoglobin (Bld) [Mass/Vol] 9.1 g/dL Low 13.0-17.0 [facility] Comment on above: Order Comment: Speci men Type: BLOOD SPECIMENOrdering Facility: [facility] Address: [address] [place] [address] Performed By: #### 5 7021-8 ####[facility]ATORYCLIA [id number] [address] IMMATURE GRAN % 0.6 % Normal [facility] Comment on above: Order Comment: Speci men Type: BLOOD SPECIMENOrdering Facility: [facility] Address: [address] [place] [address] Performed By: #### 5 7021-8 ####[facility]ORATORYCLIA [id number] [address] IMMATURE GRAN ABS 0.07 k/uL Normal <0.10 [facility] Comment on above: Order Comment: Speci men Type: BLOOD SPECIMENOrdering Facility: [facility] Address: [address] [place] [address] Performed By: #### 5 7021-8 ####[facility] LABORATORYCLIA [id number] [address] STATES [facility] Lymphocytes (Bld) [#/Vol] 2.16 10*3/uL Normal 1.00-4.00 [facility] Comment on above: Order Comment: Speci men Type: BLOOD SPECIMENOrdering Facility: [facility] Address: [address] [place] [address] Performed By: #### 5 7021-8 ####[facility] LABORATORYCLIA [id number] [address] Lymphocytes/100 WBC (Bld) 20.0 % Normal [facility] Comment on above: Order Comment: Speci men Type: BLOOD SPECIMENOrdering Facility: [facility] Address: [address] [place] [address] Performed By: #### 5 7021-8 ####[facility] LABORATORYCLIA [id number] [address] STATES [facility] MCH (RBC) [Entitic mass] 27.7 pg Normal 26.0-34.0 [facility] Comment on above: Order Comment: Speci men Type: BLOOD SPECIMENOrdering Facility: [facility] Address: [address] [place] [address] Performed By: #### 5 7021-8 ####[facility] LABORATORYCLIA [id number] [address] STATES [facility] MCHC (RBC) [Mass/Vol] 29.2 g/dL Low 30.5-36.0 [facility] Comment on above: Order Comment: Speci men Type: BLOOD SPECIMENOrdering Facility: [facility] Address: [address] [place] [address] Performed By: #### 5 7021-8 ####[facility]ORATORYCLIA [id number] [address] [place] MCV (RBC) [Entitic vol] 95.1 fL Normal 80.0-100.0 [facility] Comment on above: Order Comment: Speci men Type: BLOOD SPECIMENOrdering Facility: [facility] Address: [address] [place] [address] Performed By: #### 5 7021-8 ####[facility]ORATORYCLIA [id number] [address] STATES OF [facility] Monocytes (Bld) [#/Vol] 0.63 10*3/uL Normal <0.87 [facility] Comment on above: Order Comment: Speci men Type: BLOOD SPECIMENOrdering Facility: [facility] Address: [address] [place] [address] Performed By: #### 5 7021-8 ####[facility]ORATORYCLIA [id number] [address] Monocytes/100 WBC (Bld) 5.8 % Normal [facility] Comment on above: Order Comment: Speci men Type: BLOOD SPECIMENOrdering Facility: [facility] Address: [address] [place] [address] Performed By: #### 5 7021-8 ####[facility]ORATORYCLIA [id number] [address] [place] Neutrophils (Bld) [#/Vol] 7.25 10*3/uL Normal 1.45-7.50 [facility] Comment on above: Order Comment: Speci men Type: BLOOD SPECIMENOrdering Facility: [facility] Address: [address] [place] [address] Performed By: #### 5 7021-8 ####[facility]ORATORYCLIA [id number] [address] Neutrophils/100 WBC (Bld) 67.4 % Normal [facility] Comment on above: Order Comment: Speci men Type: BLOOD SPECIMENOrdering Facility: [facility] Address: [address] [place] [address] Performed By: #### 5 7021-8 ####[facility]ORATORYCLIA [id number] [address] [place] Nucleated RBC (Bld) [#/Vol] 10*3/uL Normal <0.01 [facility] Comment on above: Order Comment: Speci men Type: BLOOD SPECIMENOrdering Facility: [facility] Address: [address] [place] [address] Performed By: #### 5 7021-8 ####[facility]ORATORYCLIA [id number] [address] Nucleated RBC/100 WBC (Bld) [Ratio] 0.0 /100 WBC Normal [facility] Comment on above: Order Comment: Speci men Type: BLOOD SPECIMENOrdering Facility: [facility] Address: [address] [place] [address] Performed By: #### 5 7021-8 ####[facility] LABORATORYCLIA [id number] [address] [place] Platelet mean volume (Bld) [Entitic vol] 11.2 fL Normal 9.0-12.7 [facility] Comment on above: Order Comment: Speci men Type: BLOOD SPECIMENOrdering Facility: [facility] Address: [address] [place] [address] Performed By: #### 5 7021-8 ####[facility]ORATORYCLIA [id number] [address] STATES OF [facility] Platelets (Bld) [#/Vol] 245 10*3/uL Normal 150-400 [facility] Comment on above: Order Comment: Speci men Type: BLOOD SPECIMENOrdering Facility: [facility] Address: [address] [place] [address] Performed By: #### 5 7021-8 ####[facility] LABORATORYCLIA [id number] [place] [address] [place] RBC (Bld) [#/Vol] 3.28 10*6/uL Low 4.20-6.00 [facility] Comment on above: Order Comment: Speci men Type: BLOOD SPECIMENOrdering Facility: [facility] Address: [address] [place] [address] Performed By: #### 5 7021-8 ####[facility]ORATORYCLIA [id number] [address] STATES OF [facility] WBC (Bld) [#/Vol] 10.78 10*3/uL Normal 3.70-11.00 [facility] Comment on above: Order Comment: Speci men Type: BLOOD SPECIMENOrdering Facility: [facility] Address: [address] [place] [address] Performed By: #### 5 7021-8 ####[facility]ORATORYCLIA [id number] [address] STATES OF [facility] CSF MANUAL DIFFon 07-26-2021 DIF TTL, CSF 100 cells counted Normal [facility] Comment on above: Order Comment: Speci men Type: CEREBROSPINAL FLUIDOrdering Facility: [facility] Address: [address] [place] [address] Performed By: #### 3 4563-7, [id number], [id number] ####[facility]ORATORYCLIA [id number] [address] [place] LYMPH%, CSF 26 % Low 50-90 [facility] Comment on above: Order Comment: Speci men Type: CEREBROSPINAL FLUIDOrdering Facility: [facility] Address: [address] [address] Performed By: #### 3 4563-7, [id number], [id number] ####[facility]ORATORYCLIA [id number] [place] [address] [place] MACRO%, CSF 10 % High <1 [facility] Comment on above: Order Comment: Speci men Type: CEREBROSPINAL FLUIDOrdering Facility: [facility] Address: [address] [place] [address] Performed By: #### 3 4563-7, [id number], [id number] ####[facility]ATORYCLIA [id number] [place] [address] [place] MONO%, CSF 20 % Normal 10-50 [facility] Comment on above: Order Comment: Speci men Type: CEREBROSPINAL FLUIDOrdering Facility: [facility] Address: [address] [place] [address] Performed By: #### 3 4563-7, [id number], [id number] ####[facility]ATORYCLIA [id number] [place] [address] [place] NEUT%, CSF 40 % High 0-3 [facility] Comment on above: Order Comment: Speci men Type: CEREBROSPINAL FLUIDOrdering Facility: [facility] Address: [address] [place] [address] Performed By: #### 3 4563-7, [id number], [id number] ####[facility]ATORYCLIA [id number] [address] [place] OTHER CL%, CSF 2 % Normal [facility] Comment on above: Order Comment: Speci men Type: CEREBROSPINAL FLUIDOrdering Facility: [facility] Address: [address] [place] [address] Result Comment: Path review to follow. Performed By: #### 3 4563-7, [id number], [id number] ####[facility]ATORYCLIA [id number] [place] [address] [place] REAC LYMPH %, CSF 2 % Normal [facility] Comment on above: Order Comment: Speci men Type: CEREBROSPINAL FLUIDOrdering Facility: [facility] Address: [address] [place] [address] Performed By: #### 3 4563-7, [id number], [id number] ####[facility]ORATORYCLIA [id number] [address] [place] CSF PATHOLOGIST INTERP (LAB REFLEX ORDER-NO BILL)on 07-26-2021 CSF STAFF REVIEW Negative for maligna nt cells. Rare bacteria present, cocci in pairs and chains. Correlation with CSF cultures is recommended. Normal [facility] Comment on above: Order Comment: Speci men Type: CEREBROSPINAL FLUIDOrdering Facility: [facility] Address: [address] [place] [address] Performed By: #### 3 4563-7, [id number], [id number] ####[facility]ORATORYCLIA [id number] [address] Pathologist name Reviewed by Amador Stevens MD [facility] Comment on above: Order Comment: Speci men Type: CEREBROSPINAL FLUIDOrdering Facility: [facility] Address: [address] [place] [address] Performed By: #### 3 4563-7, [id number], [id number] ####[facility]ORATORYCLIA [id number] [address] Cell count panel (CSF)on Clarity (CSF) Slightly Cloudy Abnormal Clear [facility] Comment on above: Order Comment: Speci men Type: CEREBROSPINAL FLUIDOrdering Facility: [facility] Address: [address] [place] [address] Performed By: #### 3 4563-7, [id number], [id number] ####[facility]ORATORYCLIA [id number] [address] [place] Clarity (Unsp spec) Clear Normal Clear [facility] Comment on above: Order Comment: Speci men Type: CEREBROSPINAL FLUIDOrdering Facility: [facility] Address: [address] [address] Performed By: #### 3 4563-7, [id number], [id number] ####[facility]ORATORYCLIA [id number] [address] Color (CSF) Colorless Normal Colorless [facility] Comment on above: Order Comment: Speci men Type: CEREBROSPINAL FLUIDOrdering Facility: [facility] Address: [facility] [place] [address] Performed By: #### 3 4563-7, [id number], [id number] ####[facility]ORATORYCLIA [id number] [address] Color (Spun CSF) Not Indicated Normal Colorless [facility] Comment on above: Order Comment: Speci men Type: CEREBROSPINAL FLUIDOrdering Facility: [facility] Address: [address] [place] [address] Performed By: #### 3 4563-7, [id number], [id number] ####[facility]ORATORYCLIA [id number] [address] CSF TUBE [employer] Normal [facility] Comment on above: Order Comment: Speci men Type: CEREBROSPINAL FLUIDOrdering Facility: [facility] Address: [address] [place] [address] Performed By: #### 3 4563-7, [id number], [id number] ####[facility]ORATORYCLIA [id number] [address] RBC Manual cnt (CSF) [#/Vol] 1 cells/uL Normal 0-5 [facility] Comment on above: Order Comment: Speci men Type: CEREBROSPINAL FLUIDOrdering Facility: [facility] Address: [facility] [place] [address] Performed By: #### 3 4563-7, [id number], [id number] ####[facility]ORATORYCLIA [id number] [address] WBC Manual cnt (CSF) [#/Vol] 50 cells/uL High 0-5 [facility] Comment on above: Order Comment: Speci men Type: CEREBROSPINAL FLUIDOrdering Facility: [facility] Address: [address] [place] [address] Performed By: #### 3 4563-7, [id number], [id number] ####[facility]ORATORYCLIA [id number] [place] [address] [place] [facility] Glucose CSF-ncon Glucose (CSF) [Mass/Vol] 64 mg/dL Normal 40-70 [facility] Comment on above: Order Comment: Speci men Type: CEREBROSPINAL FLUIDOrdering Facility: [facility] Address: [address] [place] [address] Result Comment: Lumb ar CSF glucose values of healthy patients are approximately 60% of the plasma values and must always be compared with a concurrently measured plasma value for adequate clinical interpretation.References: 1. Glucose HK (GLUC3) [package insert V 12.0 [place]yan]. [employer], [place], [place]. September 2015. 2. Michelle Moore, Loki HGarfield (2015). Chapter 7: Glucose and Lactate. F. Irina rose al.(eds.), Cerebrospinal Fluid in Clinical Neurology. [place]: [employer]. Performed By: #### 2 880-3, 2342-4 ####[facility]ORATORYCLIA [id number] [place] [address] [place] Magnesium SerPl-ncon 07-26 Magnesium [Mass/Vol] 2.3 mg/dL Normal 1.7-2.3 [facility] Comment on above: Order Comment: Speci men Type: BLOOD SPECIMENOrdering Facility: [facility] Address: [address] [place] [address] Performed By: #### 1 9123-9, 2777-1, 3016-3 ####[facility]ORATORYCLIA [id number] [place] [address] [place] NURSING PROGon 07-26-2021 NURSING PROG Normal [facility] Phosphate SerPl-ncon 07-26 Phosphate [Mass/Vol] 2.6 mg/dL Low 2.7-4.8 [facility] Comment on above: Order Comment: Speci men Type: BLOOD SPECIMENOrdering Facility: [facility] Address: [address] [place] [address] Performed By: #### 1 9123-9, 2777-1, 3016-3 ####[facility]ORATORYCLIA [id number] [place] [address] [place] Prot CSF-mCncon 07-26-2021 Protein (CSF) [Mass/Vol] 64 mg/dL High 15-45 [facility] Comment on above: Order Comment: Speci men Type: CEREBROSPINAL FLUIDOrdering Facility: [facility] Address: [address] [place] [address] Performed By: #### 2 880-3, 2342-4 ####[facility]ORATORYCLIA [id number] [address] OF [facility] THERAPY NTon 07-26-2021 THERAPY NT Normal [facility] TSH SerPl-aCncon 07-26-2021 TSH Qn 1.470 m[IU]/L Normal 0.270-4.200 [facility] Comment on above: Order Comment: Speci men Type: BLOOD SPECIMENOrdering Facility: [facility] Address: [address] [place] [address] Performed By: #### 1 9123-9, 2777-1, 3016-3 ####[facility]ORATORYCLIA [id number] [address] [place] VITAMIN B12 BLOODon 07-27-19 Cobalamin (Vitamin B12) [Mass/Vol] 934 pg/mL Normal 232-1,245 [facility] Comment on above: Order Comment: Speci men Type: BLOOD SPECIMENOrdering Facility: [facility] Address: [address] [place] [address] Performed By: #### B 12 ####[facility]ORATORYCLIA [id number] [address] [place] aPTT PPPon 07-26-2021 aPTT Coag (PPP) [Time] 53.6 s High 23.0-32.[address] [facility] Comment on above: Order Comment: Speci men Type: BLOOD SPECIMENOrdering Facility: [facility] Address: [address] [place] [address] Performed By: #### 1 4979-9 ####[facility]ORATORYCLIA [id number] [address] aPTT Coag (PPP) [Time] 44.9 s High 23.0-32.[address] [facility] Comment on above: Order Comment: Speci men Type: BLOOD SPECIMENOrdering Facility: [facility] Address: [address] [place] [address] Performed By: #### 1 4979-9 ####[facility]ORATORYCLIA [id number] [address] ALLIED HEALTHon 07-25-2021 ALLIED HEALTH HNO ID: [id number] Author: RT Rajwinder(R) Service: Radiology Author Type: Technologist Type: Allied Health Filed: 07/25/2021 1:37 PM Note Text: Called floor for MRI screening form [id number] Normal [facility] Bacteria Bld Culton 07-26-19 Bacteria identified Cx Nom (Bld) CULTURE, BLOOD: No growth 5 days Normal [facility] Comment on above: Performed By: #### 6 00-7 ####[facility]ORATORYCLIA [id number] [address] Bacteria identified Cx Nom (Bld) CULTURE, BLOOD: No growth 5 days Normal [facility] Comment on above: Performed By: #### 6 00-7 ####[facility]ATORYCLIA [id number] [address] CASE MANAGEMon 07-25-2021 CASE MANAGEM Normal [facility] CBC W Auto Differential pane l (Bld)on 07-25-2021 Basophils (Bld) [#/Vol] 0.06 10*3/uL Normal <0.11 [facility] Comment on above: Order Comment: Speci men Type: BLOOD SPECIMENOrdering Facility: [facility] Address: [address] [place] [address] Performed By: #### 5 7021-8 ####[facility]ATORYCLIA [id number] [place] [address] [place] Basophils/100 WBC (Bld) 0.6 % Normal [facility] Comment on above: Order Comment: Speci men Type: BLOOD SPECIMENOrdering Facility: [facility] Address: [address] [place] [address] Performed By: #### 5 7021-8 ####[facility]ATORYCLIA [id number] [address] [place] Differential cell count method Nom (Bld) Auto Normal [facility] Comment on above: Order Comment: Speci men Type: BLOOD SPECIMENOrdering Facility: [facility] Address: [address] [place] [address] Performed By: #### 5 7021-8 ####[facility]ATORYCLIA [id number] [address] [place] Eosinophils (Bld) [#/Vol] 0.26 10*3/uL Normal <0.46 [facility] Comment on above: Order Comment: Speci men Type: BLOOD SPECIMENOrdering Facility: [facility] Address: [address] [place] [address] Performed By: #### 5 7021-8 ####[facility]ORYCLIA [id number] [address] [place] Eosinophils/100 WBC (Bld) 2.5 % Normal [facility] Comment on above: Order Comment: Speci men Type: BLOOD SPECIMENOrdering Facility: [facility] Address: [address] [place] [address] Performed By: #### 5 7021-8 ####[facility]ORYCLIA [id number] [address] Erythrocyte distribution width (RBC) [Ratio] 16.9 % High 11.5-15.0 [facility] Comment on above: Order Comment: Speci men Type: BLOOD SPECIMENOrdering Facility: [facility] Address: [address] [place] [address] Performed By: #### 5 7021-8 ####[facility]ORATORYCLIA [id number] [address] OF [facility] Hematocrit (Bld) [Volume fraction] 29.6 % Low 39.0-51.0 [facility] Comment on above: Order Comment: Speci men Type: BLOOD SPECIMENOrdering Facility: [facility] Address: [address] [place] [address] Performed By: #### 5 7021-8 ####[facility]ORATORYCLIA [id number] [address] STATES OF [facility] Hemoglobin (Bld) [Mass/Vol] 8.8 g/dL Low 13.0-17.0 [facility] Comment on above: Order Comment: Speci men Type: BLOOD SPECIMENOrdering Facility: [facility] Address: [address] [place] [address] Performed By: #### 5 7021-8 ####[facility]ORATORYCLIA [id number] [address] [place] IMMATURE GRAN % 0.6 % Normal [facility] Comment on above: Order Comment: Speci men Type: BLOOD SPECIMENOrdering Facility: [facility] Address: [address] [place] [address] Performed By: #### 5 7021-8 ####[facility]ORATORYCLIA [id number] [address] IMMATURE GRAN ABS 0.06 k/uL Normal <0.10 [facility] Comment on above: Order Comment: Speci men Type: BLOOD SPECIMENOrdering Facility: [facility] Address: [address] [place] [address] Performed By: #### 5 7021-8 ####[facility]ORATORYCLIA [id number] [address] [place] Lymphocytes (Bld) [#/Vol] 2.15 10*3/uL Normal 1.00-4.00 [facility] Comment on above: Order Comment: Speci men Type: BLOOD SPECIMENOrdering Facility: [facility] Address: [address] [place] [address] Performed By: #### 5 7021-8 ####[facility]ORATORYCLIA [id number] [address] Lymphocytes/100 WBC (Bld) 20.7 % Normal [facility] Comment on above: Order Comment: Speci men Type: BLOOD SPECIMENOrdering Facility: [facility] Address: [address] [place] [address] Performed By: #### 5 7021-8 ####[facility]ORATORYCLIA [id number] [address] MCH (RBC) [Entitic mass] 28.2 pg Normal 26.0-34.0 [facility] Comment on above: Order Comment: Speci men Type: BLOOD SPECIMENOrdering Facility: [facility] Address: [address] [place] [address] Performed By: #### 5 7021-8 ####[facility]ORATORYCLIA [id number] [address] STATES OF [facility] MCHC (RBC) [Mass/Vol] 29.7 g/dL Low 30.5-36.0 [facility] Comment on above: Order Comment: Speci men Type: BLOOD SPECIMENOrdering Facility: [facility] Address: [address] [place] [address] Performed By: #### 5 7021-8 ####[facility]ORATORYCLIA [id number] [address] STATES OF [facility] MCV (RBC) [Entitic vol] 94.9 fL Normal 80.0-100.0 [facility] Comment on above: Order Comment: Speci men Type: BLOOD SPECIMENOrdering Facility: [facility] Address: [address] [place] [address] Performed By: #### 5 7021-8 ####[facility]ORATORYCLIA [id number] [address] [place] Monocytes (Bld) [#/Vol] 0.62 10*3/uL Normal <0.87 [facility] Comment on above: Order Comment: Speci men Type: BLOOD SPECIMENOrdering Facility: [facility] Address: [address] [place] [address] Performed By: #### 5 7021-8 ####[facility]ORYCLIA [id number] [address] Monocytes/100 WBC (Bld) 6.0 % Normal [facility] Comment on above: Order Comment: Speci men Type: BLOOD SPECIMENOrdering Facility: [facility] Address: [address] [place] [address] Performed By: #### 5 7021-8 ####[facility]ORATORYCLIA [id number] [address] [place] Neutrophils (Bld) [#/Vol] 7.25 10*3/uL Normal 1.45-7.50 [facility] Comment on above: Order Comment: Speci men Type: BLOOD SPECIMENOrdering Facility: [facility] Address: [address] [place] [address] Performed By: #### 5 7021-8 ####[facility]ORYCLIA [id number] [address] [place] Neutrophils/100 WBC (Bld) 69.6 % Normal [facility] Comment on above: Order Comment: Speci men Type: BLOOD SPECIMENOrdering Facility: [facility] Address: [address] [place] [address] Performed By: #### 5 7021-8 ####[facility]ORATORYCLIA [id number] [place] [address] [place] Nucleated RBC (Bld) [#/Vol] 10*3/uL Normal <0.01 [facility] Comment on above: Order Comment: Speci men Type: BLOOD SPECIMENOrdering Facility: [facility] Address: [address] [place] [address] Performed By: #### 5 7021-8 ####[facility]ORATORYCLIA [id number] [place] [address] [place] Nucleated RBC/100 WBC (Bld) [Ratio] 0.0 /100 WBC Normal [facility] Comment on above: Order Comment: Speci men Type: BLOOD SPECIMENOrdering Facility: [facility] Address: [address] [place] [address] Performed By: #### 5 7021-8 ####[facility]ORATORYCLIA [id number] [place] [address] [place] Platelet mean volume (Bld) [Entitic vol] 11.3 fL Normal 9.0-12.7 [facility] Comment on above: Order Comment: Speci men Type: BLOOD SPECIMENOrdering Facility: [facility] Address: [address] [place] [address] Performed By: #### 5 7021-8 ####[facility]ORATORYCLIA [id number] [place] [address] [place] Platelets (Bld) [#/Vol] 243 10*3/uL Normal 150-400 [facility] Comment on above: Order Comment: Speci men Type: BLOOD SPECIMENOrdering Facility: [facility] Address: [address] Performed By: #### 5 7021-8 ####[facility] LABORATORYCLIA [id number] [place] [address] [place] RBC (Bld) [#/Vol] 3.12 10*6/uL Low 4.20-6.00 [facility] Comment on above: Order Comment: Speci men Type: BLOOD SPECIMENOrdering Facility: [facility] Address: [address] [place] [address] Performed By: #### 5 7021-8 ####[facility] LABORATORYCLIA [id number] [place] [address] [place] [place] WBC (Bld) [#/Vol] 10.40 10*3/uL Normal 3.70-11.00 [facility] Comment on above: Order Comment: Speci men Type: BLOOD SPECIMENOrdering Facility: [facility] Address: [address] [place] [address] Performed By: #### 5 7021-8 ####[facility] LABORATORYCLIA [id number] [address] OF [place] CONSULT PROGon 07-25-2021 CONSULT PROG Normal [facility] MYCOPLASMA PNEUM IGMon 07-25 M. PNEUMO IGM, QUAL Negative Normal Negative [facility] Comment on above: Order Comment: Speci [facility] Type: BLOOD SPECIMENOrdering Facility: [facility] Address: [address] [place] [address] Result Comment: Myco plasma pneumoniae IgM antibody test is used as an aid in diagnosis of recent infection with M. pneumoniae. It may occasionally remain elevated for extended periods after an acute infection. Cannot exclude recent infection if the specimen collected 7-10 days after onset of signs and symptoms. Clinical correlation is required. Performed By: #### M YCOPM ####[facility] LABCLIA [id number] [facility] [id number] [place] NURSING PROGon 07-25-2021 NURSING PROG Normal [facility] THERAPY NTon 07-25-2021 THERAPY NT Normal [facility] THERAPY NT Normal [facility] aPTT PPPon 07-25-2021 aPTT Coag (PPP) [Time] 62.6 s High 23.0-32.[address] [facility] Comment on above: Order Comment: Speci men Type: BLOOD SPECIMENOrdering Facility: [facility] Address: [address] [place] [address] Performed By: #### 1 4979-9 ####[facility] LABORATORYCLIA [id number] [place] [address] [place] Bacteria Ur Culton 2 Bacteria identified Cx Nom (U) CULTURE, URINE: No growth (<100 CFU/ml) Normal [facility] Comment on above: Performed By: #### 6 30-4 ####[facility] LABORATORYCLIA [id number] [place] [address] [place] Basic metabolic 2000 panelon 07-24-2021 Anion gap [Moles/Vol] 13 mmol/L Normal 9-18 [facility] Comment on above: Order Comment: Speci men Type: BLOOD SPECIMENOrdering Facility: [facility] Address: [address] [place] [address] Performed By: #### 1 9123-9, KATIE, 2776-05, 08024-9 ####[facility] LABORATORYCLIA [id number] [place] [address] [place] Calcium [Mass/Vol] 9.5 mg/dL Normal 8.5-10.2 [facility] Comment on above: Order Comment: Speci men Type: BLOOD SPECIMENOrdering Facility: [facility] Address: [address] [place] [address] Performed By: #### 1 9123-9, KATIE, 2776-05, 81236-4 ####[facility] LABORATORYCLIA [id number] [place] [address] [place] Chloride [Moles/Vol] 102 mmol/L Normal 97-105 [facility] Comment on above: Order Comment: Speci men Type: BLOOD SPECIMENOrdering Facility: [facility] Address: [address] [address] Performed By: #### 1 9123-9, KATIE, 2776-05, ####[facility] LABORATORYCLIA [id number] [place] [address] [place] CO2 [Moles/Vol] 28 mmol/L Normal 22-30 [facility] Comment on above: Order Comment: Speci men Type: BLOOD SPECIMENOrdering Facility: [facility] Address: [address] [address] Performed By: #### 1 9123-9, PROCAL, 2777-1, 46337-3 ####[facility] COUNTYIA [id number] [address] [place] Creatinine [Mass/Vol] 0.86 mg/dL Normal 0.73-1.22 [facility] Comment on above: Order Comment: Speci men Type: BLOOD SPECIMENOrdering Facility: [facility] Address: [address] [address] Performed By: #### 1 9123-9, [facility], 277-, 93477-9 ####[facility] COUNTYIA [id number] [address] [place] ESTIMATED GLOMERULAR FILTRATION RATE 94 mL/min/1.73m??? Normal >=60 [facility] Comment on above: Order Comment: Speci men Type: BLOOD SPECIMENOrdering Facility: [facility] Address: [address] [address] Result Comment: Luzmaria mated Glomerular Filtration Rate [...] Performed By: #### 1 9123-9, PROCAL, 2777-1, 98277-7 ####[facility] COUNTY[facility] [id number] [address] [place] Glucose [Mass/Vol] 148 mg/dL High 74-99 [facility] Comment on above: Order Comment: Speci men Type: BLOOD SPECIMENOrdering Facility: [facility] Address: [address] [address] Result Comment: The [employer] (ADA) [...] Performed By: #### 1 9123-9, PROCAL, 2776-, 83425-2 ####[facility] LABORATORYCLIA [id number] [place] [address] [place] Potassium [Moles/Vol] 4.0 mmol/L Normal 3.7-5.1 [facility] Comment on above: Order Comment: Shira felmdan Type: BLOOD SPECIMENOrdering Facility: [facility] Address: [address] [place] [address] Performed By: #### 1 9123-9, [facility], 2776-05, 66754-4 ####[facility] SERVICESCLIA [id number] [place] [address] [place] Sodium [Moles/Vol] 143 mmol/L Normal 136-144 [facility] Comment on above: Order Comment: Shira feldman Type: BLOOD SPECIMENOrdering Facility: [facility] Address: [address] [place] [address] Performed By: #### 1 9123-9, PROCNJ, 2776-05, 92078-6 ####[facility] LABORATORYCLIA [id number] [place] [address] [place] Urea nitrogen [Mass/Vol] 38 mg/dL High 9-24 [facility] Comment on above: Order Comment: Shira feldman Type: BLOOD SPECIMENOrdering Facility: [facility] Address: [address] [address] Performed By: #### 1 9123-9, PROCAL, 7-, 06928-3 ####[facility] LABORATORYCLIA [id number] [place] [address] [place] CBC W Auto Differential pane l (Bld)on 07-24-2021 Basophils (Bld) [#/Vol] 0.06 10*3/uL Normal <0.11 [facility] Comment on above: Order Comment: Speci men Type: BLOOD SPECIMENOrdering Facility: [facility] Address: [address] [place] [address] Performed By: #### 5 7021-8 ####[facility] LABORATORYCLIA [id number] [address] STATES [facility] Basophils/100 WBC (Bld) 0.6 % Normal [facility] Comment on above: Order Comment: Speci men Type: BLOOD SPECIMENOrdering Facility: [facility] Address: [address] [place] [address] Performed By: #### 5 7021-8 ####[facility] LABORATORYCLIA [id number] [address] Differential cell count method Nom (Bld) Auto Normal [facility] Comment on above: Order Comment: Speci men Type: BLOOD SPECIMENOrdering Facility: [facility] Address: [address] [place] [address] Performed By: #### 5 7021-8 ####[facility] LABORATORYCLIA [id number] [address] [place] Eosinophils (Bld) [#/Vol] 0.03 10*3/uL Normal <0.46 [facility] Comment on above: Order Comment: Speci men Type: BLOOD SPECIMENOrdering Facility: [facility] Address: [address] [place] [address] Performed By: #### 5 7021-8 ####[facility] LABORATORYCLIA [id number] [address] Eosinophils/100 WBC (Bld) 0.3 % Normal [facility] Comment on above: Order Comment: Speci men Type: BLOOD SPECIMENOrdering Facility: [facility] Address: [address] [address] Performed By: #### 5 7021-8 ####[facility] LABORATORYCLIA [id number] [address] Erythrocyte distribution width (RBC) [Ratio] 17.0 % High 11.5-15.0 [facility] Comment on above: Order Comment: Speci men Type: BLOOD SPECIMENOrdering Facility: [facility] Address: [address] [place] [address] Performed By: #### 5 7021-8 ####[facility] LABORATORYCLIA [id number] [address] Hematocrit (Bld) [Volume fraction] 30.5 % Low 39.0-51.0 [facility] Comment on above: Order Comment: Speci men Type: BLOOD SPECIMENOrdering Facility: [facility] Address: [address] [place] [address] Performed By: #### 5 7021-8 ####[facility] LABORATORYCLIA [id number] [address] Hemoglobin (Bld) [Mass/Vol] 9.0 g/dL Low 13.0-17.0 [facility] Comment on above: Order Comment: Speci men Type: BLOOD SPECIMENOrdering Facility: [facility] Address: [address] [place] [address] Performed By: #### 5 7021-8 ####[facility] LABORATORYCLIA [id number] [address] IMMATURE GRAN % 0.5 % Normal [facility] Comment on above: Order Comment: Speci men Type: BLOOD SPECIMENOrdering Facility: [facility] Address: [address] [place] [address] Performed By: #### 5 7021-8 ####[facility] LABORATORYCLIA [id number] [address] IMMATURE GRAN ABS 0.05 k/uL Normal <0.10 [facility] Comment on above: Order Comment: Speci men Type: BLOOD SPECIMENOrdering Facility: [facility] Address: [address] [place] [address] Performed By: #### 5 7021-8 ####[facility] LABORATORYCLIA [id number] [address] OF [facility] Lymphocytes (Bld) [#/Vol] 1.68 10*3/uL Normal 1.00-4.00 [facility] Comment on above: Order Comment: Speci men Type: BLOOD SPECIMENOrdering Facility: [facility] Address: [address] [place] [address] Performed By: #### 5 7021-8 ####[facility] LABORATORYCLIA [id number] [address] Lymphocytes/100 WBC (Bld) 16.2 % Normal [facility] Comment on above: Order Comment: Speci men Type: BLOOD SPECIMENOrdering Facility: [facility] Address: [address] [place] [address] Performed By: #### 5 7021-8 ####[facility] LABORATORYCLIA [id number] [address] [place] MCH (RBC) [Entitic mass] 27.4 pg Normal 26.0-34.0 [facility] Comment on above: Order Comment: Speci men Type: BLOOD SPECIMENOrdering Facility: [facility] Address: [address] [place] [address] Performed By: #### 5 7021-8 ####[facility] LABORATORYCLIA [id number] [address] [place] MCHC (RBC) [Mass/Vol] 29.5 g/dL Low 30.5-36.0 [facility] Comment on above: Order Comment: Speci men Type: BLOOD SPECIMENOrdering Facility: [facility] Address: [address] [place] [address] Performed By: #### 5 7021-8 ####[facility] LABORATORYCLIA [id number] [address] [place] MCV (RBC) [Entitic vol] 93.0 fL Normal 80.0-100.0 [facility] Comment on above: Order Comment: Speci men Type: BLOOD SPECIMENOrdering Facility: [facility] Address: [address] [place] [address] Performed By: #### 5 7021-8 ####[facility] LABORATORYCLIA [id number] [place] [address] [place] Monocytes (Bld) [#/Vol] 0.63 10*3/uL Normal <0.87 [facility] Comment on above: Order Comment: Speci men Type: BLOOD SPECIMENOrdering Facility: [facility] Address: [address] [place] [address] Performed By: #### 5 7021-8 ####[facility] LABORATORYCLIA [id number] [address] Monocytes/100 WBC (Bld) 6.1 % Normal [facility] Comment on above: Order Comment: Speci men Type: BLOOD SPECIMENOrdering Facility: [facility] Address: [address] [place] [address] Performed By: #### 5 7021-8 ####[facility] LABORATORYCLIA [id number] [address] [place] Neutrophils (Bld) [#/Vol] 7.91 10*3/uL High 1.45-7.50 [facility] Comment on above: Order Comment: Speci men Type: BLOOD SPECIMENOrdering Facility: [facility] Address: [address] [place] [address] Performed By: #### 5 7021-8 ####[facility] LABORATORYCLIA [id number] [address] [place] Neutrophils/100 WBC (Bld) 76.3 % Normal [facility] Comment on above: Order Comment: Speci men Type: BLOOD SPECIMENOrdering Facility: [facility] Address: [address] [place] [address] Performed By: #### 5 7021-8 ####[facility] LABORATORYCLIA [id number] [address] OF [place] Nucleated RBC (Bld) [#/Vol] 10*3/uL Normal <0.01 [facility] Comment on above: Order Comment: Speci men Type: BLOOD SPECIMENOrdering Facility: [facility] Address: [address] [place] [address] Performed By: #### 5 7021-8 ####[facility] LABORATORYCLIA [id number] [address] OF [place] Nucleated RBC/100 WBC (Bld) [Ratio] 0.0 /100 WBC Normal [facility] Comment on above: Order Comment: Speci men Type: BLOOD SPECIMENOrdering Facility: [facility] Address: [address] [place] [address] Performed By: #### 5 7021-8 ####[facility] LABORATORYCLIA [id number] [address] Platelet mean volume (Bld) [Entitic vol] 11.1 fL Normal 9.0-12.7 [facility] Comment on above: Order Comment: Speci men Type: BLOOD SPECIMENOrdering Facility: [facility] Address: [address] [place] [address] Performed By: #### 5 7021-8 ####[facility] LABORATORYCLIA [id number] [address] OF [place] Platelets (Bld) [#/Vol] 285 10*3/uL Normal 150-400 [facility] Comment on above: Order Comment: Speci men Type: BLOOD SPECIMENOrdering Facility: [facility] Address: [address] [place] [address] Performed By: #### 5 7021-8 ####[facility] LABORATORYCLIA [id number] [address] OF [place] RBC (Bld) [#/Vol] 3.28 10*6/uL Low 4.20-6.00 [facility] Comment on above: Order Comment: Speci men Type: BLOOD SPECIMENOrdering Facility: [facility] Address: [address] [place] [address] Performed By: #### 5 7021-8 ####[facility] LABORATORYCLIA [id number] [place] [address] [place] WBC (Bld) [#/Vol] 10.36 10*3/uL Normal 3.70-11.00 [facility] Comment on above: Order Comment: Speci men Type: BLOOD SPECIMENOrdering Facility: [facility] Address: [address] [place] [address] Performed By: #### 5 7021-8 ####[facility] LABORATORYCLIA [id number] [address] OF [place] Legionella Ag Ur Qlon 2021 Legionella sp Ag Ql (U) Negative Normal Negative [facility] Comment on above: Order Comment: Speci men Type: URINE SPECIMENOrdering Facility: [facility] Address: [address] [place] [address] Performed By: #### 3 2781-7 ####[facility] LABORATORYCLIA [id number] [place] [address] [place] Magnesium SerPl-mCncon 07-24 Magnesium [Mass/Vol] 2.3 mg/dL Normal 1.7-2.3 [facility] Comment on above: Order Comment: Speci men Type: BLOOD SPECIMENOrdering Facility: [facility] Address: [address] [place] [address] Performed By: #### 1 9123-9, PROCAL, 2777-1, 87384-1 ####[facility] LABORATORYCLIA [id number] [address] [place] NURSING PROGon 07-24-2021 NURSING PROG Normal [facility] PROCALCITONIN (LAB)on 2021 Procalcitonin [Mass/Vol] 0.15 ng/mL High <0.09 [facility] Comment on above: Order Comment: Speci men Type: BLOOD SPECIMENOrdering Facility: [facility] Address: [address] [place] [address] Result Comment: For a guided interpretation of test results, please visit the Change in Procalcitonin Calculator, [email or web address]. Performed By: #### 1 9123-9, PROCCARLITOS, 2777-1, 99612-4 ####[facility] LABORATORYCLIA [id number] [address] [place] Phosphate SerPl-mCncon 07-24 Phosphate [Mass/Vol] 3.9 mg/dL Normal 2.7-4.8 [facility] Comment on above: Order Comment: Speci men Type: BLOOD SPECIMENOrdering Facility: [facility] Address: [address] [place] [address] Performed By: #### 1 9123-9, PROCAL, 2777-1, 24505-9 ####[facility] LABORATORYCLIA [id number] [address] [place] STREPTOCOCCUS PNEUMONIAE AGo n 07-24-2021 STREPTOCOCCUS PNEUMONIAE AG Normal [facility] Comment on above: Performed By: #### S PNAG ####[facility] LABORATORYCLIA [id number] [address] [place] aPTT PPPon 07-24-2021 aPTT Coag (PPP) [Time] 60.8 s High 23.0-32.[address] [facility] Comment on above: Order Comment: Speci men Type: BLOOD SPECIMENOrdering Facility: [facility] Address: [address] [place] [address] Performed By: #### 1 4979-9 ####[facility] LABORATORYCLIA [id number] [address] OF [place] aPTT Coag (PPP) [Time] 38.2 s High 23.0-32.[address] [facility] Comment on above: Order Comment: Speci men Type: BLOOD SPECIMENOrdering Facility: [facility] Address: [address] [address] Performed By: #### 1 4979-9 ####[facility] LABORATORYCLIA [id number] [address] aPTT Coag (PPP) [Time] 35.9 s High 23.0-32.[address] [facility] Comment on above: Order Comment: Speci men Type: BLOOD SPECIMENOrdering Facility: [facility] Address: [address] [place] [address] Performed By: #### 1 4979-9 ####[facility] LABORATORYCLIA [id number] [address] aPTT Coag (PPP) [Time] 28.8 s Normal 23.0-32.[address] [facility] Comment on above: Order Comment: Speci men Type: BLOOD SPECIMENOrdering Facility: [facility] Address: [address] [place] [address] Performed By: #### 1 4979-9 ####[facility] LABORATORYCLIA [id number] [address] [place] ALLIED HEALTHon 07-23-2021 ALLIED HEALTH Normal [facility] ALLIED HEALTH Normal [facility] ALLIED HEALTH Normal [facility] ARTERIAL BLOOD GASESon 07-23 Base excess Calc (Bld) [Moles/Vol] 4 mmol/L High 0-2 [facility] Comment on above: Order Comment: Speci men Type: ARTERIAL BLOOD SPECIMENOrdering Facility: [facility] Address: [address] [address] Performed By: #### A LLBG ####[facility] LABORATORYCLIA [id number] [address] Body temperature 100.58 [degF] Normal [facility] Comment on above: Order Comment: Speci men Type: ARTERIAL BLOOD SPECIMENOrdering Facility: [facility] Address: [address] [place] [address] Performed By: #### A LLBG ####[facility] LABORATORYCLIA [id number] [address] STATES OF [facility] CALCIUM IONIZED, PH CORRECTED 1.26 mmol/L Normal 1.08-1.30 [facility] Comment on above: Order Comment: Speci men Type: ARTERIAL BLOOD SPECIMENOrdering Facility: [facility] Address: [address] [place] [address] Performed By: #### A LLBG ####[facility] LABORATORYCLIA [id number] [place] [address] [place] Calcium.ionized (BldV) [Mass/Vol] 1.25 mmol/L Normal 1.08-1.30 [facility] Comment on above: Order Comment: Speci men Type: ARTERIAL BLOOD SPECIMENOrdering Facility: [facility] Address: [address] [place] [address] Performed By: #### A LLBG ####[facility] LABORATORYCLIA [id number] [address] Carboxyhemoglobin (BldA) [Mass fraction] 1.2 % Normal 0.0-2.0 [facility] Comment on above: Order Comment: Speci men Type: ARTERIAL BLOOD SPECIMENOrdering Facility: [facility] Address: [address] [place] [address] Result Comment: Carb oxyhemoglobin Reference Range for Smokers: 2.0-8.0% Performed By: #### A LLBG ####[facility] LABORATORYCLIA [id number] [place] [address] [place] CO2 (Bld) [Partial pressure] 46 mm Hg Normal 36-46 [facility] Comment on above: Order Comment: Speci men Type: ARTERIAL BLOOD SPECIMENOrdering Facility: [facility] Address: [address] [place] [address] Performed By: #### A LLBG ####[facility] LABORATORYCLIA [id number] [address] [place] CO2 [Moles/Vol] 27 mmol/L Normal 22-28 [facility] Comment on above: Order Comment: Speci men Type: ARTERIAL BLOOD SPECIMENOrdering Facility: [facility] Address: [address] [place] [address] Performed By: #### A LLBG ####[facility] LABORATORYCLIA [id number] [address] CO2 adjusted to patient's actual temperature (Bld) [Partial pressure] 48 mmHg High 36-46 [facility] Comment on above: Order Comment: Speci men Type: ARTERIAL BLOOD SPECIMENOrdering Facility: [facility] Address: [address] [place] [address] Performed By: #### A LLBG ####[facility] LABORATORYCLIA [id number] [address] [place] Glucose [Mass/Vol] 134 mg/dL High 60-105 [facility] Comment on above: Order Comment: Speci men Type: ARTERIAL BLOOD SPECIMENOrdering Facility: [facility] Address: [address] [place] [address] Performed By: #### A LLBG ####[facility] LABORATORYCLIA [id number] [address] [place] HCO3 (Bld) [Moles/Vol] 29 mmol/L High 22-[address] [facility] Comment on above: Order Comment: Speci men Type: ARTERIAL BLOOD SPECIMENOrdering Facility: [facility] Address: [address] [place] [address] Performed By: #### A LLBG ####[facility] LABORATORYCLIA [id number] [address] Hematocrit (Bld) [Volume fraction] 31.4 % Low 39.0-51.0 [facility] Comment on above: Order Comment: Speci men Type: ARTERIAL BLOOD SPECIMENOrdering Facility: [facility] Address: [address] [place] [address] Performed By: #### A LLBG ####[facility] LABORATORYCLIA [id number] [address] OF [place] Hemoglobin (Bld) [Mass/Vol] 10.2 g/dL Low 13.0-17.0 [facility] Comment on above: Order Comment: Speci men Type: ARTERIAL BLOOD SPECIMENOrdering Facility: [facility] Address: [facility] [address] Performed By: #### A LLBG ####[facility]ORATORYCLIA [id number] [address] Methemoglobin (Bld) [Mass fraction] % Normal 0.0-1.5 [facility] Comment on above: Order Comment: Speci men Type: ARTERIAL BLOOD SPECIMENOrdering Facility: [facility] Address: [address] [place] [address] Performed By: #### A LLBG ####[facility] LABORATORYCLIA [id number] [address] O2 THERAPY Ventilator Normal [facility] Comment on above: Order Comment: Speci men Type: ARTERIAL BLOOD SPECIMENOrdering Facility: [facility] Address: [address] [place] [address] Performed By: #### A LLBG ####[facility] LABORATORYCLIA [id number] [address] Oxygen (Bld) [Partial pressure] 113 mm Hg High 85-95 [facility] Comment on above: Order Comment: Speci men Type: ARTERIAL BLOOD SPECIMENOrdering Facility: [facility] Address: [address] [place] [address] Performed By: #### A LLBG ####[facility]ORATORYCLIA [id number] [address] Oxygen adjusted to patient's actual temperature (Bld) [Partial pressure] 119 mmHg High 85-95 [facility] Comment on above: Order Comment: Speci men Type: ARTERIAL BLOOD SPECIMENOrdering Facility: [facility] Address: [address] [place] [address] Performed By: #### A LLBG ####[facility]ORATORYCLIA [id number] [place] [address] OXYGEN SATURATION, ARTERIAL 98 % Normal 95-98 [facility] Comment on above: Order Comment: Speci men Type: ARTERIAL BLOOD SPECIMENOrdering Facility: [facility] Address: [address] [place] [address] Performed By: #### A LLBG ####[facility] LABORATORYCLIA [id number] [address] [place] Oxyhemoglobin (BldA) [Mass fraction] 96 % Normal 95-98 [facility] Comment on above: Order Comment: Speci men Type: ARTERIAL BLOOD SPECIMENOrdering Facility: [facility] Address: [address] [place] [address] Performed By: #### A LLBG ####[facility] LABORATORYCLIA [id number] [address] [place] pH (Bld) 7.41 [pH] Normal 7.35-7.45 [facility] Comment on above: Order Comment: Speci men Type: ARTERIAL BLOOD SPECIMENOrdering Facility: [facility] Address: [address] [place] [address] Performed By: #### A LLBG ####[facility] LABORATORYCLIA [id number] [address] pH adjusted to patient's actual temperature (Bld) 7.40 Normal 7.35-7.45 [facility] Comment on above: Order Comment: Speci men Type: ARTERIAL BLOOD SPECIMENOrdering Facility: [facility] Address: [address] [place] [address] Performed By: #### A LLBG ####[facility] LABORATORYCLIA [id number] [address] [place] Potassium [Moles/Vol] 4.3 mmol/L Normal 3.5-5.0 [facility] Comment on above: Order Comment: Speci men Type: ARTERIAL BLOOD SPECIMENOrdering Facility: [facility] Address: [address] [place] [address] Performed By: #### A LLBG ####[facility] LABORATORYCLIA [id number] [address] [place] Sodium [Moles/Vol] 144 mmol/L Normal 136-144 [facility] Comment on above: Order Comment: Speci men Type: ARTERIAL BLOOD SPECIMENOrdering Facility: [facility] Address: [address] [address] Performed By: #### A LLBG ####[facility] LABORATORYCLIA [id number] [address] Bacteria CSF Culton 07-24-19 22 Bacteria identified Cx Nom (CSF) Abnormal [facility] Comment on above: Performed By: #### 6 06-4 ####[facility] LABORATORYCLIA [id number] [address] [place] Basic metabolic 2000 panelon 07-23-2021 Anion gap [Moles/Vol] 12 mmol/L Normal 9-18 [facility] Comment on above: Order Comment: Speci men Type: BLOOD SPECIMENOrdering Facility: [facility] Address: [address] [place] [address] Performed By: #### 2 4321-2 ####[facility] LABORATORYCLIA [id number] [address] [place] Calcium [Mass/Vol] 9.7 mg/dL Normal 8.5-10.2 [facility] Comment on above: Order Comment: Speci men Type: BLOOD SPECIMENOrdering Facility: [facility] Address: [address] [address] Performed By: #### 2 4321-2 ####[facility] LABORATORYCLIA [id number] [address] [place] Chloride [Moles/Vol] 105 mmol/L Normal 97-105 [facility] Comment on above: Order Comment: Speci men Type: BLOOD SPECIMENOrdering Facility: [facility] Address: [address] [address] Performed By: #### 2 4321-2 ####[facility] LABORATORYCLIA [id number] [address] STATES OF [facility] CO2 [Moles/Vol] 28 mmol/L Normal 22-30 [facility] Comment on above: Order Comment: Speci men Type: BLOOD SPECIMENOrdering Facility: [facility] Address: [address] [place] [address] Performed By: #### 2 4321-2 ####[facility] LABORATORYCLIA [id number] [address] STATES OF [facility] Creatinine [Mass/Vol] 0.78 mg/dL Normal 0.73-1.22 [facility] Comment on above: Order Comment: Speci men Type: BLOOD SPECIMENOrdering Facility: [facility] Address: [address] [place] [address] Performed By: #### 2 4321-2 ####[facility] HE[facility] SERVICESCLIA [id number] [address] ESTIMATED GLOMERULAR FILTRATION RATE 97 mL/min/1.73m??? Normal >=60 [facility] Comment on above: Order Comment: Speci men Type: BLOOD SPECIMENOrdering Facility: [facility] Address: [address] [place] [address] Result Comment: Luzmaria mated Glomerular Filtration Rate [...] actual GFR. Performed By: #### 2 4321-2 ####[facility] LABORATORYCLIA [id number] [address] STATES OF [facility] Glucose [Mass/Vol] 127 mg/dL High 74-99 [facility] Comment on above: Order Comment: Speci men Type: BLOOD SPECIMENOrdering Facility: [facility] Address: [address] [place] [address] Result Comment: The [employer] (ADA) [...] 2016.39(Suppl 1). Performed By: #### 2 4321-2 ####[facility] LABORATORYCLIA [id number] [address] STATES OF [facility] Potassium [Moles/Vol] 4.3 mmol/L Normal 3.7-5.1 [facility] Comment on above: Order Comment: Shira feldamn Type: BLOOD SPECIMENOrdering Facility: [facility] Address: [address] [place] [address] Performed By: #### 2 4321-2 ####[facility] LABORATORYCLIA [id number] [address] STATES [facility] Sodium [Moles/Vol] 145 mmol/L High 136-144 [facility] Comment on above: Order Comment: Shira feldman Type: BLOOD SPECIMENOrdering Facility: [facility] Address: [address] [place] [address] Performed By: #### 2 4321-2 ####[facility] LABORATORYCLIA [id number] [address] STATES [facility] Urea nitrogen [Mass/Vol] 37 mg/dL High 9-24 [facility] Comment on above: Order Comment: Shira feldman Type: BLOOD SPECIMENOrdering Facility: [facility] Address: [address] [place] [address] Performed By: #### 2 4321-2 ####[facility] LABORATORYCLIA [id number] [place] [address] [place] C diff Tox gens Stl Ql MEGAN+p robeon 07-23-2021 C. difficile toxin genes MEGAN+probe Ql (Stl) Negative Normal Negative for C. difficile toxin by PCR [facility] Comment on above: Order Comment: Speci men Type: STOOL SPECIMENOrdering Facility: [facility] Address: [address] [place] [address] Performed By: #### 5 4067-4 ####[facility] LABORATORYCLIA [id number] [address] STATES [place] [facility] CBC W Auto Differential pane l (Bld)on 07-23-2021 Basophils (Bld) [#/Vol] 0.07 10*3/uL Normal <0.11 [facility] Comment on above: Order Comment: Speci men Type: BLOOD SPECIMENOrdering Facility: [facility] Address: [address] [place] [address] Performed By: #### 5 7021-8 ####[facility] LABORATORYCLIA [id number] [address] STATES OF [facility] Basophils/100 WBC (Bld) 0.5 % Normal [facility] Comment on above: Order Comment: Speci men Type: BLOOD SPECIMENOrdering Facility: [facility] Address: [address] [place] [address] Performed By: #### 5 7021-8 ####[facility]ORATORYCLIA [id number] [address] Differential cell count method Nom (Bld) Auto Normal [facility] Comment on above: Order Comment: Speci men Type: BLOOD SPECIMENOrdering Facility: [facility] Address: [address] [place] [address] Performed By: #### 5 7021-8 ####[facility] LABORATORYCLIA [id number] [place] [address] [place] Eosinophils (Bld) [#/Vol] 10*3/uL Normal <0.46 [facility] Comment on above: Order Comment: Speci men Type: BLOOD SPECIMENOrdering Facility: [facility] Address: [address] [place] [address] Performed By: #### 5 7021-8 ####[facility] LABORATORYCLIA [id number] [address] Eosinophils/100 WBC (Bld) 0.2 % Normal [facility] Comment on above: Order Comment: Speci men Type: BLOOD SPECIMENOrdering Facility: [facility] Address: [address] [place] [address] Performed By: #### 5 7021-8 ####[facility] LABORATORYCLIA [id number] [address] [place] Erythrocyte distribution width (RBC) [Ratio] 16.7 % High 11.5-15.0 [facility] Comment on above: Order Comment: Speci men Type: BLOOD SPECIMENOrdering Facility: [facility] Address: [address] [place] [address] Performed By: #### 5 7021-8 ####[facility]ORATORYCLIA [id number] [address] Hematocrit (Bld) [Volume fraction] 32.8 % Low 39.0-51.0 [facility] Comment on above: Order Comment: Speci men Type: BLOOD SPECIMENOrdering Facility: [facility] Address: [address] [place] [address] Performed By: #### 5 7021-8 ####[facility] LABORATORYCLIA [id number] [address] [place] Hemoglobin (Bld) [Mass/Vol] 9.7 g/dL Low 13.0-17.0 [facility] Comment on above: Order Comment: Speci men Type: BLOOD SPECIMENOrdering Facility: [facility] Address: [address] [place] [address] Performed By: #### 5 7021-8 ####[facility]ORATORYCLIA [id number] [address] [place] IMMATURE GRAN % 0.7 % Normal [facility] Comment on above: Order Comment: Speci men Type: BLOOD SPECIMENOrdering Facility: [facility] Address: [address] [place] [address] Performed By: #### 5 7021-8 ####[facility] LABORATORYCLIA [id number] [address] IMMATURE GRAN ABS 0.09 k/uL Normal <0.10 [facility] Comment on above: Order Comment: Speci men Type: BLOOD SPECIMENOrdering Facility: [facility] Address: [address] [place] [address] Performed By: #### 5 7021-8 ####[facility] LABORATORYCLIA [id number] [address] Lymphocytes (Bld) [#/Vol] 1.94 10*3/uL Normal 1.00-4.00 [facility] Comment on above: Order Comment: Speci men Type: BLOOD SPECIMENOrdering Facility: [facility] Address: [address] [place] [address] Performed By: #### 5 7021-8 ####[facility] LABORATORYCLIA [id number] [address] Lymphocytes/100 WBC (Bld) 14.6 % Normal [facility] Comment on above: Order Comment: Speci men Type: BLOOD SPECIMENOrdering Facility: [facility] Address: [address] [place] [address] Performed By: #### 5 7021-8 ####[facility] LABORATORYCLIA [id number] [address] MCH (RBC) [Entitic mass] 27.2 pg Normal 26.0-34.0 [facility] Comment on above: Order Comment: Speci men Type: BLOOD SPECIMENOrdering Facility: [facility] Address: [address] [place] [address] Performed By: #### 5 7021-8 ####[facility] LABORATORYCLIA [id number] [place] [address] [place] MCHC (RBC) [Mass/Vol] 29.6 g/dL Low 30.5-36.0 [facility] Comment on above: Order Comment: Speci men Type: BLOOD SPECIMENOrdering Facility: [facility] Address: [address] [place] [address] Performed By: #### 5 7021-8 ####[facility] LABORATORYCLIA [id number] [place] [address] [place] MCV (RBC) [Entitic vol] 92.1 fL Normal 80.0-100.0 [facility] Comment on above: Order Comment: Speci men Type: BLOOD SPECIMENOrdering Facility: [facility] Address: [address] [place] [address] Performed By: #### 5 7021-8 ####[facility] LABORATORYCLIA [id number] [address] [place] Monocytes (Bld) [#/Vol] 0.74 10*3/uL Normal <0.87 [facility] Comment on above: Order Comment: Speci men Type: BLOOD SPECIMENOrdering Facility: [facility] Address: [address] [place] [address] Performed By: #### 5 7021-8 ####[facility] LABORATORYCLIA [id number] [address] Monocytes/100 WBC (Bld) 5.6 % Normal [facility] Comment on above: Order Comment: Speci men Type: BLOOD SPECIMENOrdering Facility: [facility] Address: [address] [place] [address] Performed By: #### 5 7021-8 ####[facility]ORATORYCLIA [id number] [address] [place] Neutrophils (Bld) [#/Vol] 10.43 10*3/uL High 1.45-7.50 [facility] Comment on above: Order Comment: Speci men Type: BLOOD SPECIMENOrdering Facility: [facility] Address: [address] [place] [address] Performed By: #### 5 7021-8 ####[facility]ORATORYCLIA [id number] [address] Neutrophils/100 WBC (Bld) 78.4 % Normal [facility] Comment on above: Order Comment: Speci men Type: BLOOD SPECIMENOrdering Facility: [facility] Address: [address] [place] [address] Performed By: #### 5 7021-8 ####[facility]ORATORYCLIA [id number] [address] [place] Nucleated RBC (Bld) [#/Vol] 10*3/uL Normal <0.01 [facility] Comment on above: Order Comment: Speci men Type: BLOOD SPECIMENOrdering Facility: [facility] Address: [address] [place] [address] Performed By: #### 5 7021-8 ####[facility]ORATORYCLIA [id number] [address] Nucleated RBC/100 WBC (Bld) [Ratio] 0.0 /100 WBC Normal [facility] Comment on above: Order Comment: Speci men Type: BLOOD SPECIMENOrdering Facility: [facility] Address: [address] [place] [address] Performed By: #### 5 7021-8 ####[facility]ORATORYCLIA [id number] [address] [place] Platelet mean volume (Bld) [Entitic vol] 11.0 fL Normal 9.0-12.7 [facility] Comment on above: Order Comment: Speci men Type: BLOOD SPECIMENOrdering Facility: [facility] Address: [address] [place] [address] Performed By: #### 5 7021-8 ####[facility]ORATORYCLIA [id number] [address] [place] Platelets (Bld) [#/Vol] 381 10*3/uL Normal 150-400 [facility] Comment on above: Order Comment: Speci men Type: BLOOD SPECIMENOrdering Facility: [facility] Address: [address] [place] [address] Performed By: #### 5 7021-8 ####[facility] LABORATORYCLIA [id number] [address] OF [facility] RBC (Bld) [#/Vol] 3.56 10*6/uL Low 4.20-6.00 [facility] Comment on above: Order Comment: Speci men Type: BLOOD SPECIMENOrdering Facility: [facility] Address: [address] [place] [address] Performed By: #### 5 7021-8 ####[facility] LABORATORYCLIA [id number] [address] OF [facility] WBC (Bld) [#/Vol] 13.29 10*3/uL High 3.70-11.00 [facility] Comment on above: Order Comment: Speci men Type: BLOOD SPECIMENOrdering Facility: [facility] Address: [address] [place] [address] Performed By: #### 5 7021-8 ####[facility] LABORATORYCLIA [id number] [address] CONSULT PROGon 07-23-2021 CONSULT PROG Normal [facility] CONSULT PROG Normal [facility] CSF MANUAL DIFFon 07-23-2021 DIF TTL, CSF 100 cells counted Normal [facility] Comment on above: Order Comment: Speci men Type: CEREBROSPINAL FLUIDOrdering Facility: [facility] Address: [address] [place] [address] Performed By: #### L [id number], DIU1926, 75232-2 ####[facility] LABORATORYCLIA [id number] [address] [place] LYMPH%, CSF 2 % Low 50-90 [facility] Comment on above: Order Comment: Speci men Type: CEREBROSPINAL FLUIDOrdering Facility: [facility] Address: [address] [place] [address] Performed By: #### L [id number], AXE5154, 78640-8 ####[facility] LABORATORYCLIA [id number] [place] [address] [place] MONO%, CSF 9 % Low 10-50 [facility] Comment on above: Order Comment: Speci men Type: CEREBROSPINAL FLUIDOrdering Facility: [facility] Address: [address] [place] [address] Performed By: #### L [id number], WAK3881, 62202-9 ####[facility]ORATORYCLIA [id number] [place] [address] [place] NEUT%, CSF 89 % High 0-3 [facility] Comment on above: Order Comment: Speci men Type: CEREBROSPINAL FLUIDOrdering Facility: [facility] Address: [address] [place] [address] Performed By: #### L [id number], GGA4741, 12712-6 ####[facility]ORATORYCLIA [id number] [address] CSF PATHOLOGIST INTERP (LAB REFLEX ORDER-NO BILL)on 07-23-2021 CSF STAFF REVIEW Negative for maligna nt cells. Numerous bacterial organisms present, cocci in pairs and chains. Recommend correlation with CSF culture results. Normal [facility] Comment on above: Order Comment: Speci men Type: CEREBROSPINAL FLUIDOrdering Facility: [facility] Address: [address] [place] [address] Performed By: #### L [id number], [id number], 97117-1 ####[facility]ORATORYCLIA [id number] [address] Pathologist name Reviewed by Amador Stevens MD [facility] Comment on above: Order Comment: Speci men Type: CEREBROSPINAL FLUIDOrdering Facility: [facility] Address: [address] [place] [address] Performed By: #### L [id number], EPG5318, 54514-7 ####[facility]ORATORYCLIA [id number] [address] BRAIN WO IVCONon 07-24-19 CT BRAIN WO IVCON Normal [facility] Cell count panel (CSF)on Clarity (CSF) Clear Normal Clear [facility] Comment on above: Order Comment: Speci men Type: CEREBROSPINAL FLUIDOrdering Facility: [facility] Address: [address] [place] [address] Performed By: #### L [id number], [id number], 56161-2 ####[facility]ORATORYCLIA [id number] [address] Clarity (Unsp spec) Not Indicated Normal Clear [facility] Comment on above: Order Comment: Speci men Type: CEREBROSPINAL FLUIDOrdering Facility: [facility] Address: [address] [place] [address] Performed By: #### L [id number], RQH5253, 85654-3 ####[facility]ORATORYCLIA [id number] [address] Color (CSF) Colorless Normal Colorless [facility] Comment on above: Order Comment: Speci men Type: CEREBROSPINAL FLUIDOrdering Facility: [facility] Address: [address] [place] [address] Performed By: #### L [id number], KRL2985, 63459-2 ####[facility]ORATORYCLIA [id number] [address] Color (Spun CSF) Not Indicated Normal Colorless [facility] Comment on above: Order Comment: Speci men Type: CEREBROSPINAL FLUIDOrdering Facility: [facility] Address: [address] [place] [address] Performed By: #### L [id number], EEN1501, 15553-1 ####[facility]ORATORYCLIA [id number] [address] CSF TUBE NUMBER [employer] Normal [facility] Comment on above: Order Comment: Speci men Type: CEREBROSPINAL FLUIDOrdering Facility: [facility] Address: [address] [place], [place] [address] Performed By: #### L [id number], EKT1654, 17600-6 ####[facility]ORATORYCLIA [id number] [address] RBC Manual cnt (CSF) [#/Vol] 7 cells/uL High 0-5 [facility] Comment on above: Order Comment: Speci men Type: CEREBROSPINAL FLUIDOrdering Facility: [facility] Address: [address] [place] [address] Performed By: #### L [id number], ZRG6331, 34199-4 ####[facility]ORATORYCLIA [id number] [address] WBC Manual cnt (CSF) [#/Vol] 193 cells/uL High 0-5 [facility] Comment on above: Order Comment: Speci men Type: CEREBROSPINAL FLUIDOrdering Facility: [facility] Address: [address] [place] [address] Performed By: #### L [id number], QAA3985, 24471-6 ####[facility] LABORATORYCLIA [id number] [address] [place] Glucose CSF-ncon 2 Glucose (CSF) [Mass/Vol] 81 mg/dL High 40-70 [facility] Comment on above: Order Comment: Speci men Type: CEREBROSPINAL FLUIDOrdering Facility: [facility] Address: [address] [place] [address] Result Comment: Lumb ar CSF glucose values of healthy patients are approximately 60% of the plasma values and must always be compared with a concurrently measured plasma value for adequate clinical interpretation.References: 1. Glucose HK (GLUC3) [package insert V 12.0 [place]yan]. [employer], [place], [place]. September 2015. 2. Michelle Moore, Loki H. (2015). Chapter 7: Glucose and Lactate. Marianela Rothman.(eds.), Cerebrospinal Fluid in Clinical Neurology. [place]: [employer]. Performed By: #### 2 342-4, 2880-3 ####[facility] LABORATORYCLIA [id number] [address] [place] NURSING PROGon 07-23-2021 NURSING PROG Normal [facility] NURSING PROG Normal [facility] Prot CSF-mCncon 07-23-2021 Protein (CSF) [Mass/Vol] 68 mg/dL High 15-45 [facility] Comment on above: Order Comment: Speci men Type: CEREBROSPINAL FLUIDOrdering Facility: [facility] Address: [address] [place] [address] Performed By: #### 2 342-4, 2880-3 ####[facility] LABORATORYCLIA [id number] [address] Urinalysis complete panel (U )on 07-23-2021 Bilirubin Ql (U) Negative Normal Negative [facility] Comment on above: Order Comment: Speci men Type: URINE SPECIMENOrdering Facility: [facility] Address: [address] [place] [address] Performed By: #### 2 4356-8 ####[facility]ORATORYCLIA [id number] [address] [place] Clarity (Unsp spec) Clear Normal Clear [facility] Comment on above: Order Comment: Speci men Type: URINE SPECIMENOrdering Facility: [facility] Address: [address] [place] [address] Performed By: #### 2 4356-8 ####[facility]ORATORYCLIA [id number] [address] Color (U) Light Yellow Normal yellow [facility] Comment on above: Order Comment: Speci men Type: URINE SPECIMENOrdering Facility: [facility] Address: [address] [place] [address] Performed By: #### 2 4356-8 ####[facility]ORATORYCLIA [id number] [address] [place] Glucose Test strip (U) [Mass/Vol] Negative Normal Negative [facility] Comment on above: Order Comment: Speci men Type: URINE SPECIMENOrdering Facility: [facility] Address: [address] [place] [address] Performed By: #### 2 4356-8 ####[facility]ORATORYCLIA [id number] [address] Hemoglobin Ql (U) Negative Normal Negative [facility] Comment on above: Order Comment: Speci men Type: URINE SPECIMENOrdering Facility: [facility] Address: [address] [place] [address] Performed By: #### 2 4356-8 ####[facility] [facility] LABORATORYCLIA [id number] [address] [place] Ketones Ql (U) Negative Normal Negative [facility] Comment on above: Order Comment: Speci men Type: URINE SPECIMENOrdering Facility: [facility] Address: [address] [place] [address] Performed By: #### 2 4356-8 ####[facility]ORATORYCLIA [id number] [address] [place] Leukocyte esterase Test strip Ql (U) Negative Normal Negative [facility] Comment on above: Order Comment: Speci men Type: URINE SPECIMENOrdering Facility: [facility] Address: [address] [place] [address] Performed By: #### 2 4356-8 ####[facility]ORATORYCLIA [id number] [address] [place] Nitrite Ql (U) Negative Normal Negative [facility] Comment on above: Order Comment: Speci men Type: URINE SPECIMENOrdering Facility: [facility] Address: [address] [place] [address] Performed By: #### 2 4356-8 ####[facility]ORATORYCLIA [id number] [address] [place] pH (U) 6.0 [pH] Normal 5.0-8.0 [facility] Comment on above: Order Comment: Speci men Type: URINE SPECIMENOrdering Facility: [facility] Address: [address] [place] [address] Performed By: #### 2 4356-8 ####[facility]ORATORYCLIA [id number] [address] Protein (U) [Mass/Vol] 1+ Abnormal Negative [facility] Comment on above: Order Comment: Speci men Type: URINE SPECIMENOrdering Facility: [facility] Address: [address] [place] [address] Performed By: #### 2 4356-8 ####[facility] LABORATORYCLIA [id number] [address] RBC LM.HPF (Urine sed) [#/Area] 0-3 /HPF Normal 0-3 /HPF [facility] Comment on above: Order Comment: Speci men Type: URINE SPECIMENOrdering Facility: [facility] Address: [address] [place] [address] Performed By: #### 2 4356-8 ####[facility] LABORATORYCLIA [id number] [address] Specific gravity (U) [Rel density] 1.018 Normal 1.005-1.030 [facility] Comment on above: Order Comment: Speci men Type: URINE SPECIMENOrdering Facility: [facility] Address: [address] [place] [address] Performed By: #### 2 4356-8 ####[facility] LABORATORYCLIA [id number] [address] Urobilinogen Ql (U) Normal Normal Negative [facility] Comment on above: Order Comment: Speci men Type: URINE SPECIMENOrdering Facility: [facility] Address: [address] [place] [address] Performed By: #### 2 4356-8 ####[facility]ORATORYCLIA [id number] [address] [place] WBC LM.HPF (Urine sed) [#/Area] 0-5 /HPF Normal 0-5 /HPF [facility] Comment on above: Order Comment: Speci men Type: URINE SPECIMENOrdering Facility: [facility] Address: [address] [place] [address] Performed By: #### 2 4356-8 ####[facility]ORATORYCLIA [id number] [address] Vancomycin random [Mass/Vol] on 07-23-2021 Vancomycin [Mass/Vol] 12.9 ug/mL Normal 10.0-20.0 [facility] Comment on above: Order Comment: Speci men Type: BLOOD SPECIMENOrdering Facility: [facility] Address: [address] [place] [address] Result Comment: Refe rence ranges and high/low indicator flags are provided as general guidelines only. The treating physician must determine appropriate target levels/dosing based on the specific clinical situation. Performed By: #### 4 091-5 ####[facility]ORATORYCLIA [id number] [address] OF [facility] XR CHEST 1V FRONTALon 2021 XR CHEST 1V FRONTAL Normal [facility] XR CHEST 1V FRONTAL Normal [facility] aPTT PPPon 07-23-2021 aPTT Coag (PPP) [Time] 32.3 s Normal 23.0-32.[address] [facility] Comment on above: Order Comment: Speci men Type: BLOOD SPECIMENOrdering Facility: [facility] Address: [address] [address] Performed By: #### 1 4979-9 ####[facility]ORATORYCLIA [id number] [address] aPTT Coag (PPP) [Time] 57.9 s High 23.0-32.[address] [facility] Comment on above: Order Comment: Speci men Type: BLOOD SPECIMENOrdering Facility: [facility] Address: [address] [place] [address] Performed By: #### 1 4979-9 ####[facility]ORATORYCLIA [id number] [place] [address] [place] aPTT Coag (PPP) [Time] 46.3 s High 23.0-32.[address] [facility] Comment on above: Order Comment: Speci men Type: BLOOD SPECIMENOrdering Facility: [facility] Address: [address] [place] [address] Performed By: #### 1 4979-9 ####[facility]ORATORYCLIA [id number] [place] [address] [place] Basic metabolic 2000 panelon 07-22-2021 Anion gap [Moles/Vol] 8 mmol/L Low 9-18 [facility] Comment on above: Order Comment: Speci men Type: BLOOD SPECIMENOrdering Facility: [facility] Address: [address] [place] [address] Performed By: #### 2 4321-2 ####[facility]ORATORYCLIA [id number] [place] [address] [place] Calcium [Mass/Vol] 9.5 mg/dL Normal 8.5-10.2 [facility] Comment on above: Order Comment: Speci men Type: BLOOD SPECIMENOrdering Facility: [facility] Address: [address] [place] [address] Performed By: #### 2 4321-2 ####[facility]ORATORYCLIA [id number] [address] [place] Chloride [Moles/Vol] 105 mmol/L Normal 97-105 [facility] Comment on above: Order Comment: Speci men Type: BLOOD SPECIMENOrdering Facility: [facility] Address: [address] [place] [address] Performed By: #### 2 4321-2 ####[facility]ORATORYCLIA [id number] [place] [address] [place] CO2 [Moles/Vol] 32 mmol/L High 22-30 [facility] Comment on above: Order Comment: Speci men Type: BLOOD SPECIMENOrdering Facility: [facility] Address: [address] [place] [address] Performed By: #### 2 4321-2 ####[facility]ORATORYCLIA [id number] [address] STATES OF [facility] Creatinine [Mass/Vol] 0.75 mg/dL Normal 0.73-1.22 [facility] Comment on above: Order Comment: Shira feldman Type: BLOOD SPECIMENOrdering Facility: [facility] Address: [address] [place] [address] Performed By: #### 2 4321-2 ####[facility]ORATORYCLIA [id number] [address] ESTIMATED GLOMERULAR FILTRATION RATE 98 mL/min/1.73m??? Normal >=60 [facility] Comment on above: Order Comment: Shira feldman Type: BLOOD SPECIMENOrdering Facility: [facility] Address: [address] [place] [address] Result Comment: Luzmaria mated Glomerular Filtration Rate [...] actual GFR. Performed By: #### 2 4321-2 ####[facility]ORATORYCLIA [id number] [address] STATES OF [facility] Glucose [Mass/Vol] 128 mg/dL High 74-99 [facility] Comment on above: Order Comment: Shira francia Type: BLOOD SPECIMENOrdering Facility: [facility] Address: [address] [place] [address] Result Comment: The [employer] (ADA) [...] 2016.39(Suppl 1). Performed By: #### 2 4321-2 ####[facility]ORATORYCLIA [id number] [address] STATES OF [facility] Potassium [Moles/Vol] 3.7 mmol/L Normal 3.7-5.1 [facility] Comment on above: Order Comment: Speci men Type: BLOOD SPECIMENOrdering Facility: [facility] Address: [address] [place] [address] Performed By: #### 2 4321-2 ####[facility]ORATORYCLIA [id number] [address] Sodium [Moles/Vol] 145 mmol/L High 136-144 [facility] Comment on above: Order Comment: Shira feldman Type: BLOOD SPECIMENOrdering Facility: [facility] Address: [address] [place] [address] Performed By: #### 2 4321-2 ####[facility]ORATORYCLIA [id number] [address] Urea nitrogen [Mass/Vol] 39 mg/dL High 9-24 [facility] Comment on above: Order Comment: Shira feldman Type: BLOOD SPECIMENOrdering Facility: [facility] Address: [address] [place] [address] Performed By: #### 2 4321-2 ####[facility]ORATORYCLIA [id number] [address] [place] CASE MANAGEMon 07-22-2021 CASE MANAGEM Normal [facility] CBC W Auto Differential pane l (Bld)on 07-22-2021 Basophils (Bld) [#/Vol] 0.06 10*3/uL Normal <0.11 [facility] Comment on above: Order Comment: Speci men Type: BLOOD SPECIMENOrdering Facility: [facility] Address: [address] [address] Performed By: #### 5 7021-8 ####[facility]ORATORYCLIA [id number] [address] STATES [facility] Basophils/100 WBC (Bld) 0.5 % Normal [facility] Comment on above: Order Comment: Speci men Type: BLOOD SPECIMENOrdering Facility: [facility] Address: [address] [place] [address] Performed By: #### 5 7021-8 ####[facility]ORATORYCLIA [id number] [address] Differential cell count method Nom (Bld) Auto Normal [facility] Comment on above: Order Comment: Speci men Type: BLOOD SPECIMENOrdering Facility: [facility] Address: [address] [place] [address] Performed By: #### 5 7021-8 ####[facility]ORATORYCLIA [id number] [address] [place] Eosinophils (Bld) [#/Vol] 0.44 10*3/uL Normal <0.46 [facility] Comment on above: Order Comment: Speci men Type: BLOOD SPECIMENOrdering Facility: [facility] Address: [address] [place] [address] Performed By: #### 5 7021-8 ####[facility]ORATORYCLIA [id number] [address] Eosinophils/100 WBC (Bld) 3.9 % Normal [facility] Comment on above: Order Comment: Speci men Type: BLOOD SPECIMENOrdering Facility: [facility] Address: [address] [place] [address] Performed By: #### 5 7021-8 ####[facility]ORATORYCLIA [id number] [address] [place] Erythrocyte distribution width (RBC) [Ratio] 17.0 % High 11.5-15.0 [facility] Comment on above: Order Comment: Speci men Type: BLOOD SPECIMENOrdering Facility: [facility] Address: [address] [place] [address] Performed By: #### 5 7021-8 ####[facility]ORATORYCLIA [id number] [address] Hematocrit (Bld) [Volume fraction] 32.0 % Low 39.0-51.0 [facility] Comment on above: Order Comment: Speci men Type: BLOOD SPECIMENOrdering Facility: [facility] Address: [address] [place] [address] Performed By: #### 5 7021-8 ####[facility]ORATORYCLIA [id number] [address] Hemoglobin (Bld) [Mass/Vol] 9.3 g/dL Low 13.0-17.0 [facility] Comment on above: Order Comment: Speci men Type: BLOOD SPECIMENOrdering Facility: [facility] Address: [address] [place] [address] Performed By: #### 5 7021-8 ####[facility]ORATORYCLIA [id number] [address] IMMATURE GRAN % 0.5 % Normal [facility] Comment on above: Order Comment: Speci men Type: BLOOD SPECIMENOrdering Facility: [facility] Address: [address] [place] [address] Performed By: #### 5 7021-8 ####[facility]ORATORYCLIA [id number] [address] IMMATURE GRAN ABS 0.06 k/uL Normal <0.10 [facility] Comment on above: Order Comment: Speci men Type: BLOOD SPECIMENOrdering Facility: [facility] Address: [address] [place] [address] Performed By: #### 5 7021-8 ####[facility]ORATORYCLIA [id number] [address] Lymphocytes (Bld) [#/Vol] 1.83 10*3/uL Normal 1.00-4.00 [facility] Comment on above: Order Comment: Speci men Type: BLOOD SPECIMENOrdering Facility: [facility] Address: [address] [place] [address] Performed By: #### 5 7021-8 ####[facility]ORATORYCLIA [id number] [address] Lymphocytes/100 WBC (Bld) 16.1 % Normal [facility] Comment on above: Order Comment: Speci men Type: BLOOD SPECIMENOrdering Facility: [facility] Address: [address] [place] [address] Performed By: #### 5 7021-8 ####[facility]ORATORYCLIA [id number] [address] STATES OF [facility] MCH (RBC) [Entitic mass] 27.0 pg Normal 26.0-34.0 [facility] Comment on above: Order Comment: Speci men Type: BLOOD SPECIMENOrdering Facility: [facility] Address: [address] [place] [address] Performed By: #### 5 7021-8 ####[facility]ORATORYCLIA [id number] [address] MCHC (RBC) [Mass/Vol] 29.1 g/dL Low 30.5-36.0 [facility] Comment on above: Order Comment: Speci men Type: BLOOD SPECIMENOrdering Facility: [facility] Address: [address] [place] [address] Performed By: #### 5 7021-8 ####[facility]ORATORYCLIA [id number] [address] MCV (RBC) [Entitic vol] 92.8 fL Normal 80.0-100.0 [facility] Comment on above: Order Comment: Speci men Type: BLOOD SPECIMENOrdering Facility: [facility] Address: [address] [place] [address] Performed By: #### 5 7021-8 ####[facility]ORATORYCLIA [id number] [place] [address] [place] Monocytes (Bld) [#/Vol] 0.87 10*3/uL High <0.87 [facility] Comment on above: Order Comment: Speci men Type: BLOOD SPECIMENOrdering Facility: [facility] Address: [address] [place] [address] Performed By: #### 5 7021-8 ####[facility]ORATORYCLIA [id number] [place] [address] [place] Monocytes/100 WBC (Bld) 7.6 % Normal [facility] Comment on above: Order Comment: Speci men Type: BLOOD SPECIMENOrdering Facility: [facility] Address: [address] [place] [address] Performed By: #### 5 7021-8 ####[facility]ORATORYCLIA [id number] [place] [address] [place] Neutrophils (Bld) [#/Vol] 8.12 10*3/uL High 1.45-7.50 [facility] Comment on above: Order Comment: Speci men Type: BLOOD SPECIMENOrdering Facility: [facility] Address: [address] [place] [address] Performed By: #### 5 7021-8 ####[facility]ORATORYCLIA [id number] [address] [place] Neutrophils/100 WBC (Bld) 71.4 % Normal [facility] Comment on above: Order Comment: Speci men Type: BLOOD SPECIMENOrdering Facility: [facility] Address: [address] [place] [address] Performed By: #### 5 7021-8 ####[facility]ORATORYCLIA [id number] [place] [address] [place] Nucleated RBC (Bld) [#/Vol] 10*3/uL Normal <0.01 [facility] Comment on above: Order Comment: Speci men Type: BLOOD SPECIMENOrdering Facility: [facility] Address: [address] [address] Performed By: #### 5 7021-8 ####[facility]ORATORYCLIA [id number] [address] [place] Nucleated RBC/100 WBC (Bld) [Ratio] 0.0 /100 WBC Normal [facility] Comment on above: Order Comment: Speci men Type: BLOOD SPECIMENOrdering Facility: [facility] Address: [address] [place] [address] Performed By: #### 5 7021-8 ####[facility]ORATORYCLIA [id number] [address] [place] Platelet mean volume (Bld) [Entitic vol] 10.8 fL Normal 9.0-12.7 [facility] Comment on above: Order Comment: Speci men Type: BLOOD SPECIMENOrdering Facility: [facility] Address: [address] [place] [address] Performed By: #### 5 7021-8 ####[facility]ORATORYCLIA [id number] [place] [address] [place] Platelets (Bld) [#/Vol] 362 10*3/uL Normal 150-400 [facility] Comment on above: Order Comment: Speci men Type: BLOOD SPECIMENOrdering Facility: [facility] Address: [address] [place] [address] Performed By: #### 5 7021-8 ####[facility]ORATORYCLIA [id number] [place] [address] [place] RBC (Bld) [#/Vol] 3.45 10*6/uL Low 4.20-6.00 [facility] Comment on above: Order Comment: Speci men Type: BLOOD SPECIMENOrdering Facility: [facility] Address: [address] [place] [address] Performed By: #### 5 7021-8 ####[facility]ORATORYCLIA [id number] [address] OF [place] WBC (Bld) [#/Vol] 11.38 10*3/uL High 3.70-11.00 [facility] Comment on above: Order Comment: Speci men Type: BLOOD SPECIMENOrdering Facility: [facility] Address: [address] [place] [address] Performed By: #### 5 7021-8 ####[facility]ATORYCLIA [id number] [address] Magnesium SerPl-mCncon 07-22 Magnesium [Mass/Vol] 2.3 mg/dL Normal 1.7-2.3 [facility] Comment on above: Order Comment: Speci men Type: BLOOD SPECIMENOrdering Facility: [facility] Address: [address] [place] [address] Performed By: #### 1 9123-9, 2777-1, 99021-3 ####[facility]ORATORYCLIA [id number] [address] NT-proBNP SerPl-ncon 07-22 Natriuretic peptide.B prohormone N-Terminal [Mass/Vol] 328 pg/mL High <125 [facility] Comment on above: Order Comment: Speci men Type: BLOOD SPECIMENOrdering Facility: [facility] Address: [address] [place] [address] Performed By: #### 1 9123-9, 2777-1, 22712-9 ####[facility]ATORYCLIA [id number] [address] OF [place] NURSING PROGon 07-22-2021 NURSING PROG Normal [facility] NUTRITIONon 07-22-2021 NUTRITION Normal [facility] Phosphate SerPl-mCncon 07-22 Phosphate [Mass/Vol] 3.5 mg/dL Normal 2.7-4.8 [facility] Comment on above: Order Comment: Speci men Type: BLOOD SPECIMENOrdering Facility: [facility] Address: [address] [place] [address] Performed By: #### 1 9123-9, 2777-1, 15257-0 ####[facility]ORATORYCLIA [id number] [address] THERAPY NTon 07-22-2021 THERAPY NT Normal [facility] THERAPY NT Normal [facility] aPTT PPPon 07-22-2021 aPTT Coag (PPP) [Time] 50.1 s High 23.0-32.[address] [facility] Comment on above: Order Comment: Speci men Type: BLOOD SPECIMENOrdering Facility: [facility] Address: [address] [place] [address] Performed By: #### 1 4979-9 ####[facility]ORATORYCLIA [id number] [address] OF [facility] ALLIED HEALTHon 07-21-2021 ALLIED HEALTH Normal [facility] Bacteria Spec Resp Culton Bacteria identified Respiratory culture Nom (Unsp spec) Abnormal [facility] Comment on above: Performed By: #### 3 2355-0 ####[facility]ORATORYCLIA [id number] [address] [place] Basic metabolic 2000 panelon 07-21-2021 Anion gap [Moles/Vol] 9 mmol/L Normal - [facility] Comment on above: Order Comment: Speci men Type: BLOOD SPECIMENOrdering Facility: [facility] Address: [address] [place] [address] Performed By: #### 1 9123-9, 2777-, 05441-0 ####[facility]ORATORYCLIA [id number] [address] [place] Calcium [Mass/Vol] 9.9 mg/dL Normal 8.5-10.2 [facility] Comment on above: Order Comment: Speci men Type: BLOOD SPECIMENOrdering Facility: [facility] Address: [facility] [address] Performed By: #### 1 9123-9, 2777-1, 99083-9 ####[facility]ORATORYCLIA [id number] [address] [place] Chloride [Moles/Vol] 103 mmol/L Normal 97-105 [facility] Comment on above: Order Comment: Speci francia Type: BLOOD SPECIMENOrdering Facility: [facility] Address: [address] [place] [address] Performed By: #### 1 9123-9, 2777-1, 94336-9 ####[facility]ORATORYCLIA [id number] [address] OF [place] CO2 [Moles/Vol] 33 mmol/L High 22-30 [facility] Comment on above: Order Comment: Speci men Type: BLOOD SPECIMENOrdering Facility: [facility] Address: [address] [place] [address] Performed By: #### 1 9123-9, 2777-1, 71173-7 ####[facility] HE[facility] SERVICESCLIA [id number] [address] Creatinine [Mass/Vol] 0.80 mg/dL Normal 0.73-1.22 [facility] Comment on above: Order Comment: Speci men Type: BLOOD SPECIMENOrdering Facility: [facility] Address: [address] [place] [address] Performed By: #### 1 9123-9, 2777-1, 38748-4 ####[facility]ORATORYCLIA [id number] [address] ESTIMATED GLOMERULAR FILTRATION RATE 96 mL/min/1.73m??? Normal >=60 [facility] Comment on above: Order Comment: Speci men Type: BLOOD SPECIMENOrdering Facility: [facility] Address: [address] [place] [address] Result Comment: Luzmaria mated Glomerular Filtration Rate [...] GFR. Performed By: #### 1 9123-9, 2777-, 31848-0 ####[facility]ORATORYCLIA [id number] [place] [address] [place] Glucose [Mass/Vol] 148 mg/dL High 74-99 [facility] Comment on above: Order Comment: Shira feldman Type: BLOOD SPECIMENOrdering Facility: [facility] Address: [address] [place] [address] Result Comment: The [place] [employer] (ADA) [...] 1). Performed By: #### 1 9123-9, 2777-, 95873-4 ####[facility] SERVICESCLIA [id number] [place] [address] [place] Potassium [Moles/Vol] 4.1 mmol/L Normal 3.7-5.1 [facility] Comment on above: Order Comment: Shira feldman Type: BLOOD SPECIMENOrdering Facility: [facility] Address: [address] [id number] Performed By: #### 1 9123-9, 2777-, 72586-7 ####[facility]ORATORYCLIA [id number] [place] [address] [place] Sodium [Moles/Vol] 145 mmol/L High 136-144 [facility] Comment on above: Order Comment: Shira feldman Type: BLOOD SPECIMENOrdering Facility: [facility] Address: [address] [address] Performed By: #### 1 9123-9, 2777-1, 89371-0 ####[facility]ORATORYCLIA [id number] [address] STATES [facility] Urea nitrogen [Mass/Vol] 40 mg/dL High 9-24 [facility] Comment on above: Order Comment: Speci men Type: BLOOD SPECIMENOrdering Facility: [facility] Address: [address] [place] [address] Performed By: #### 1 9123-9, 2777-1, 14528-0 ####[facility]ORATORYCLIA [id number] [address] CBC W Auto Differential pane l (Bld)on 07-21-2021 Basophils (Bld) [#/Vol] 0.06 10*3/uL Normal <0.11 [facility] Comment on above: Order Comment: Speci men Type: BLOOD SPECIMENOrdering Facility: [facility] Address: [address] [place] [address] Performed By: #### 5 7021-8 ####[facility]ORATORYCLIA [id number] [address] STATES [facility] Basophils/100 WBC (Bld) 0.4 % Normal [facility] Comment on above: Order Comment: Speci men Type: BLOOD SPECIMENOrdering Facility: [facility] Address: [address] [place] [address] Performed By: #### 5 7021-8 ####[facility]ATORYCLIA [id number] [address] Differential cell count method Nom (Bld) Auto Normal [facility] Comment on above: Order Comment: Speci men Type: BLOOD SPECIMENOrdering Facility: [facility] Address: [address] [place] [address] Performed By: #### 5 7021-8 ####[facility]ORATORYCLIA [id number] [address] [place] Eosinophils (Bld) [#/Vol] 0.04 10*3/uL Normal <0.46 [facility] Comment on above: Order Comment: Speci men Type: BLOOD SPECIMENOrdering Facility: [facility] Address: [address] [place] [address] Performed By: #### 5 7021-8 ####[facility]ORATORYCLIA [id number] [address] [place] Eosinophils/100 WBC (Bld) 0.3 % Normal [facility] Comment on above: Order Comment: Speci men Type: BLOOD SPECIMENOrdering Facility: [facility] Address: [address] [place] [address] Performed By: #### 5 7021-8 ####[facility]ORATORYCLIA [id number] [address] STATES [facility] Erythrocyte distribution width (RBC) [Ratio] 17.0 % High 11.5-15.0 [facility] Comment on above: Order Comment: Speci men Type: BLOOD SPECIMENOrdering Facility: [facility] Address: [address] [place] [address] Performed By: #### 5 7021-8 ####[facility] LABORATORYCLIA [id number] [address] [place] Hematocrit (Bld) [Volume fraction] 33.1 % Low 39.0-51.0 [facility] Comment on above: Order Comment: Speci men Type: BLOOD SPECIMENOrdering Facility: [facility] Address: [address] [place] [address] Performed By: #### 5 7021-8 ####[facility] LABORATORYCLIA [id number] [address] [place] Hemoglobin (Bld) [Mass/Vol] 9.7 g/dL Low 13.0-17.0 [facility] Comment on above: Order Comment: Speci men Type: BLOOD SPECIMENOrdering Facility: [facility] Address: [address] [place] [address] Performed By: #### 5 7021-8 ####[facility]ATORYCLIA [id number] [address] IMMATURE GRAN % 0.5 % Normal [facility] Comment on above: Order Comment: Speci men Type: BLOOD SPECIMENOrdering Facility: [facility] Address: [address] [place] [address] Performed By: #### 5 7021-8 ####[facility]ORATORYCLIA [id number] [address] IMMATURE GRAN ABS 0.07 k/uL Normal <0.10 [facility] Comment on above: Order Comment: Speci men Type: BLOOD SPECIMENOrdering Facility: [facility] Address: [address] [place] [address] Performed By: #### 5 7021-8 ####[facility]ORATORYCLIA [id number] [address] Lymphocytes (Bld) [#/Vol] 1.99 10*3/uL Normal 1.00-4.00 [facility] Comment on above: Order Comment: Speci men Type: BLOOD SPECIMENOrdering Facility: [facility] Address: [address] [place] [address] Performed By: #### 5 7021-8 ####[facility]ATORYCLIA [id number] [address] Lymphocytes/100 WBC (Bld) 13.4 % Normal [facility] Comment on above: Order Comment: Speci men Type: BLOOD SPECIMENOrdering Facility: [facility] Address: [address] [place] [address] Performed By: #### 5 7021-8 ####[facility]ATORYCLIA [id number] [address] MCH (RBC) [Entitic mass] 27.2 pg Normal 26.0-34.0 [facility] Comment on above: Order Comment: Speci men Type: BLOOD SPECIMENOrdering Facility: [facility] Address: [address] [place] [address] Performed By: #### 5 7021-8 ####[facility] LABORATORYCLIA [id number] [address] [place] MCHC (RBC) [Mass/Vol] 29.3 g/dL Low 30.5-36.0 [facility] Comment on above: Order Comment: Speci men Type: BLOOD SPECIMENOrdering Facility: [facility] Address: [address] [place] [address] Performed By: #### 5 7021-8 ####[facility] LABORATORYCLIA [id number] [address] [place] MCV (RBC) [Entitic vol] 92.7 fL Normal 80.0-100.0 [facility] Comment on above: Order Comment: Speci men Type: BLOOD SPECIMENOrdering Facility: [facility] Address: [address] [place] [address] Performed By: #### 5 7021-8 ####[facility] LABORATORYCLIA [id number] [address] [place] Monocytes (Bld) [#/Vol] 1.10 10*3/uL High <0.87 [facility] Comment on above: Order Comment: Speci men Type: BLOOD SPECIMENOrdering Facility: [facility] Address: [address] [place] [address] Performed By: #### 5 7021-8 ####[facility]ORATORYCLIA [id number] [address] STATES [facility] Monocytes/100 WBC (Bld) 7.4 % Normal [facility] Comment on above: Order Comment: Speci men Type: BLOOD SPECIMENOrdering Facility: [facility] Address: [address] [place] [address] Performed By: #### 5 7021-8 ####[facility] LABORATORYCLIA [id number] [place] [address] [place] Neutrophils (Bld) [#/Vol] 11.61 10*3/uL High 1.45-7.50 [facility] Comment on above: Order Comment: Speci men Type: BLOOD SPECIMENOrdering Facility: [facility] Address: [address] [place] [address] Performed By: #### 5 7021-8 ####[facility]ORATORYCLIA [id number] [address] Neutrophils/100 WBC (Bld) 78.0 % Normal [facility] Comment on above: Order Comment: Speci men Type: BLOOD SPECIMENOrdering Facility: [facility] Address: [address] [place] [address] Performed By: #### 5 7021-8 ####[facility]ORATORYCLIA [id number] [address] [place] Nucleated RBC (Bld) [#/Vol] 10*3/uL Normal <0.01 [facility] Comment on above: Order Comment: Speci men Type: BLOOD SPECIMENOrdering Facility: [facility] Address: [address] [place] [address] Performed By: #### 5 7021-8 ####[facility]ORATORYCLIA [id number] [address] Nucleated RBC/100 WBC (Bld) [Ratio] 0.0 /100 WBC Normal [facility] Comment on above: Order Comment: Speci men Type: BLOOD SPECIMENOrdering Facility: [facility] Address: [address] [place] [address] Performed By: #### 5 7021-8 ####[facility]ORATORYCLIA [id number] [place] [address] [place] Platelet mean volume (Bld) [Entitic vol] 10.4 fL Normal 9.0-12.7 [facility] Comment on above: Order Comment: Speci men Type: BLOOD SPECIMENOrdering Facility: [facility] Address: [address] [place] [address] Performed By: #### 5 7021-8 ####[facility]ORATORYCLIA [id number] [address] OF [facility] Platelets (Bld) [#/Vol] 396 10*3/uL Normal 150-400 [facility] Comment on above: Order Comment: Speci men Type: BLOOD SPECIMENOrdering Facility: [facility] Address: [address] [place] [address] Performed By: #### 5 7021-8 ####[facility]ORATORYCLIA [id number] [address] OF [facility] RBC (Bld) [#/Vol] 3.57 10*6/uL Low 4.20-6.00 [facility] Comment on above: Order Comment: Speci men Type: BLOOD SPECIMENOrdering Facility: [facility] Address: [address] [place] [address] Performed By: #### 5 7021-8 ####[facility]ORATORYCLIA [id number] [address] OF [facility] WBC (Bld) [#/Vol] 14.87 10*3/uL High 3.70-11.00 [facility] Comment on above: Order Comment: Speci men Type: BLOOD SPECIMENOrdering Facility: [facility] Address: [address] [place] [address] Performed By: #### 5 7021-8 ####[facility]ORATORYCLIA [id number] [address] Gas and Carbon monoxide pane l (BldV)on 07-21-2021 Base excess Calc (BldV) [Moles/Vol] 7 mmol/L High 0-2 [facility] Comment on above: Order Comment: Speci men Type: VENOUS BLOOD SPECIMENOrdering Facility: [facility] Address: [address] [place] [address] Performed By: #### 2 4344-4 ####[facility]ORATORYCLIA [id number] [address] Body temperature 98.6 [degF] Normal [facility] Comment on above: Order Comment: Speci men Type: VENOUS BLOOD SPECIMENOrdering Facility: [facility] Address: [address] [place] [address] Performed By: #### 2 4344-4 ####[facility]ORATORYCLIA [id number] [address] [place] CALCIUM IONIZED, PH CORRECTED 1.21 mmol/L Normal 1.08-1.30 [facility] Comment on above: Order Comment: Speci men Type: VENOUS BLOOD SPECIMENOrdering Facility: [facility] Address: [address] [place] [address] Performed By: #### 2 4344-4 ####[facility]ORATORYCLIA [id number] [address] OF [facility] Calcium.ionized (BldV) [Mass/Vol] 1.23 mmol/L Normal 1.08-1.30 [facility] Comment on above: Order Comment: Speci men Type: VENOUS BLOOD SPECIMENOrdering Facility: [facility] Address: [address] [place] [address] Performed By: #### 2 4344-4 ####[facility]ORATORYCLIA [id number] [address] [place] Carboxyhemoglobin (BldV) [Mass fraction] 2.3 % High 0.0-2.0 [facility] Comment on above: Order Comment: Speci men Type: VENOUS BLOOD SPECIMENOrdering Facility: [facility] Address: [address] [place] [address] Result Comment: Carb oxyhemoglobin Reference Range for Smokers: 2.0-8.0% Performed By: #### 2 4344-4 ####[facility]ORATORYCLIA [id number] [address] [place] CO2 (BldV) [Partial pressure] 58 mm[Hg] High 42-55 [facility] Comment on above: Order Comment: Speci men Type: VENOUS BLOOD SPECIMENOrdering Facility: [facility] Address: [address] [place] [address] Performed By: #### 2 4344-4 ####[facility]ORATORYCLIA [id number] [place] [address] [place] CO2 [Moles/Vol] 31 mmol/L High 25-29 [facility] Comment on above: Order Comment: Speci men Type: VENOUS BLOOD SPECIMENOrdering Facility: [facility] Address: [address] [place] [address] Performed By: #### 2 4344-4 ####[facility]ORATORYCLIA [id number] [place] [address] [place] Glucose [Mass/Vol] 146 mg/dL High 60-105 [facility] Comment on above: Order Comment: Speci men Type: VENOUS BLOOD SPECIMENOrdering Facility: [facility] Address: [address] [place] [address] Performed By: #### 2 4344-4 ####[facility]ORATORYCLIA [id number] [place] [address] [place] HCO3 (Bld) [Moles/Vol] 33 mmol/L High 24-[address] [facility] Comment on above: Order Comment: Speci men Type: VENOUS BLOOD SPECIMENOrdering Facility: [facility] Address: [address] [place] [address] Performed By: #### 2 4344-4 ####[facility]ORATORYCLIA [id number] [place] [address] [place] Hematocrit (Bld) [Volume fraction] 30.1 % Low 39.0-51.0 [facility] Comment on above: Order Comment: Speci men Type: VENOUS BLOOD SPECIMENOrdering Facility: [facility] Address: [address] [place] [address] Performed By: #### 2 4344-4 ####[facility]ORATORYCLIA [id number] [place] [address] [place] Hemoglobin (Bld) [Mass/Vol] 9.7 g/dL Low 13.0-17.0 [facility] Comment on above: Order Comment: Speci men Type: VENOUS BLOOD SPECIMENOrdering Facility: [facility] Address: [address] [address] Performed By: #### 2 4344-4 ####[facility]ORATORYCLIA [id number] [address] [place] Methemoglobin (Bld) [Mass fraction] % Normal 0.0-1.5 [facility] Comment on above: Order Comment: Speci men Type: VENOUS BLOOD SPECIMENOrdering Facility: [facility] Address: [address] [address] Performed By: #### 2 4344-4 ####[facility]ORATORYCLIA [id number] [address] O2 THERAPY NC = Nasal Cannula Normal [facility] Comment on above: Order Comment: Speci men Type: VENOUS BLOOD SPECIMENOrdering Facility: [facility] Address: [address] [address] Performed By: #### 2 4344-4 ####[facility]ORATORYCLIA [id number] [address] [place] Oxygen (BldV) [Partial pressure] 64 mm[Hg] High 35-45 [facility] Comment on above: Order Comment: Speci men Type: VENOUS BLOOD SPECIMENOrdering Facility: [facility] Address: [address] [address] Performed By: #### 2 4344-4 ####[facility]ORYCLIA [id number] [address] [place] Oxygen saturation in Blood 90 % High 60-85 [facility] Comment on above: Order Comment: Speci men Type: VENOUS BLOOD SPECIMENOrdering Facility: [facility] Address: [address] [address] Performed By: #### 2 4344-4 ####[facility]ORATORYCLIA [id number] [address] [place] Oxyhemoglobin (BldV) [Mass fraction] 87 % High 60-85 [facility] Comment on above: Order Comment: Speci men Type: VENOUS BLOOD SPECIMENOrdering Facility: [facility] Address: [address] [place] [address] Performed By: #### 2 4344-4 ####[facility]ORATORYCLIA [id number] [place] [address] [place] pH (BldV) 7.38 [pH] Normal 7.32-7.42 [facility] Comment on above: Order Comment: Speci men Type: VENOUS BLOOD SPECIMENOrdering Facility: [facility] Address: [address] [place] [address] Performed By: #### 2 4344-4 ####[facility]ORATORYCLIA [id number] [place] [address] [place] Potassium [Moles/Vol] 3.8 mmol/L Normal 3.5-5.0 [facility] Comment on above: Order Comment: Speci men Type: VENOUS BLOOD SPECIMENOrdering Facility: [facility] Address: [address] [place] [address] Performed By: #### 2 4344-4 ####[facility]ORATORYCLIA [id number] [address] [place] Sodium [Moles/Vol] 145 mmol/L High 136-144 [facility] Comment on above: Order Comment: Speci men Type: VENOUS BLOOD SPECIMENOrdering Facility: [facility] Address: [address] [place] [address] Performed By: #### 2 4344-4 ####[facility]ORATORYCLIA [id number] [place] [address] [place] Base excess Calc (BldV) [Moles/Vol] 8 mmol/L High 0-2 [facility] Comment on above: Order Comment: Speci men Type: VENOUS BLOOD SPECIMENOrdering Facility: [facility] Address: [address] [place] [address] Performed By: #### 2 4344-4 ####[facility]ORATORYCLIA [id number] [address] Body temperature 100.22 [degF] Normal [facility] Comment on above: Order Comment: Speci men Type: VENOUS BLOOD SPECIMENOrdering Facility: [facility] Address: [address] [place] [address] Performed By: #### 2 4344-4 ####[facility]ORATORYCLIA [id number] [address] OF [facility] CALCIUM IONIZED, PH CORRECTED 1.25 mmol/L Normal 1.08-1.30 [facility] Comment on above: Order Comment: Speci men Type: VENOUS BLOOD SPECIMENOrdering Facility: [facility] Address: [address] [place] [address] Performed By: #### 2 4344-4 ####[facility]ORATORYCLIA [id number] [address] STATES [facility] Calcium.ionized (BldV) [Mass/Vol] 1.24 mmol/L Normal 1.08-1.30 [facility] Comment on above: Order Comment: Speci men Type: VENOUS BLOOD SPECIMENOrdering Facility: [facility] Address: [address] [place] [address] Performed By: #### 2 4344-4 ####[facility]ORATORYCLIA [id number] [address] [place] Carboxyhemoglobin (BldV) [Mass fraction] 2.5 % High 0.0-2.0 [facility] Comment on above: Order Comment: Speci men Type: VENOUS BLOOD SPECIMENOrdering Facility: [facility] Address: [address] [place] [address] Result Comment: Carb oxyhemoglobin Reference Range for Smokers: 2.0-8.0% Performed By: #### 2 4344-4 ####[facility]ORATORYCLIA [id number] [address] [place] CO2 (BldV) [Partial pressure] 53 mm[Hg] Normal 42-55 [facility] Comment on above: Order Comment: Speci men Type: VENOUS BLOOD SPECIMENOrdering Facility: [facility] Address: [address] [place] [address] Performed By: #### 2 4344-4 ####[facility]ATORYCLIA [id number] [address] [place] CO2 [Moles/Vol] 31 mmol/L High 25-29 [facility] Comment on above: Order Comment: Speci men Type: VENOUS BLOOD SPECIMENOrdering Facility: [facility] Address: [address] [place] [address] Performed By: #### 2 4344-4 ####[facility]ORATORYCLIA [id number] [address] [place] CO2 adjusted to patient's actual temperature (BldV) [Partial pressure] 56 mmHg High 42-55 [facility] Comment on above: Order Comment: Speci men Type: VENOUS BLOOD SPECIMENOrdering Facility: [facility] Address: [address] [place] [address] Performed By: #### 2 4344-4 ####[facility]ORATORYCLIA [id number] [place] [address] [place] Glucose [Mass/Vol] 131 mg/dL High 60-105 [facility] Comment on above: Order Comment: Speci men Type: VENOUS BLOOD SPECIMENOrdering Facility: [facility] Address: [address] [place] [address] Performed By: #### 2 4344-4 ####[facility]ATORYCLIA [id number] [place] [address] [place] HCO3 (Bld) [Moles/Vol] 33 mmol/L High 24-[address] [facility] Comment on above: Order Comment: Speci men Type: VENOUS BLOOD SPECIMENOrdering Facility: [facility] Address: [address] [place] [address] Performed By: #### 2 4344-4 ####[facility]ORYCLIA [id number] [place] [address] [place] Hematocrit (Bld) [Volume fraction] 30.8 % Low 39.0-51.0 [facility] Comment on above: Order Comment: Speci men Type: VENOUS BLOOD SPECIMENOrdering Facility: [facility] Address: [address] [address] Performed By: #### 2 4344-4 ####[facility]ORATORYCLIA [id number] [address] [place] Hemoglobin (Bld) [Mass/Vol] 10.0 g/dL Low 13.0-17.0 [facility] Comment on above: Order Comment: Speci men Type: VENOUS BLOOD SPECIMENOrdering Facility: [facility] Address: [address] [place] [address] Performed By: #### 2 4344-4 ####[facility]ORATORYCLIA [id number] [address] [place] Methemoglobin (Bld) [Mass fraction] % Normal 0.0-1.5 [facility] Comment on above: Order Comment: Speci men Type: VENOUS BLOOD SPECIMENOrdering Facility: [facility] Address: [address] [place] [address] Performed By: #### 2 4344-4 ####[facility]ORATORYCLIA [id number] [address] [place] O2 THERAPY NC = Nasal Cannula Normal [facility] Comment on above: Order Comment: Speci men Type: VENOUS BLOOD SPECIMENOrdering Facility: [facility] Address: [address] [place] [address] Performed By: #### 2 4344-4 ####[facility]ORATORYCLIA [id number] [address] [place] Oxygen (BldV) [Partial pressure] 58 mm[Hg] High 35-45 [facility] Comment on above: Order Comment: Speci men Type: VENOUS BLOOD SPECIMENOrdering Facility: [facility] Address: [address] [address] Performed By: #### 2 4344-4 ####[facility]ORATORYCLIA [id number] [address] [place] Oxygen adjusted to patient's actual temperature (BldV) [Partial pressure] 61 mmHg High 35-45 [facility] Comment on above: Order Comment: Speci men Type: VENOUS BLOOD SPECIMENOrdering Facility: [facility] Address: [address] [place] [address] Performed By: #### 2 4344-4 ####[facility]ORATORYCLIA [id number] [address] [place] Oxygen saturation in Blood 88 % High 60-85 [facility] Comment on above: Order Comment: Speci men Type: VENOUS BLOOD SPECIMENOrdering Facility: [facility] Address: [address] [place] [address] Performed By: #### 2 4344-4 ####[facility]ORATORYCLIA [id number] [address] Oxyhemoglobin (BldV) [Mass fraction] 85 % Normal 60-85 [facility] Comment on above: Order Comment: Speci men Type: VENOUS BLOOD SPECIMENOrdering Facility: [facility] Address: [address] [place] [address] Performed By: #### 2 4344-4 ####[facility]ORATORYCLIA [id number] [address] [place] pH (BldV) 7.41 [pH] Normal 7.32-7.42 [facility] Comment on above: Order Comment: Speci men Type: VENOUS BLOOD SPECIMENOrdering Facility: [facility] Address: [address] [place] [address] Performed By: #### 2 4344-4 ####[facility]ORATORYCLIA [id number] [address] STATES [facility] pH adjusted to patient's actual temperature (BldV) 7.40 Normal 7.32-7.42 [facility] Comment on above: Order Comment: Speci men Type: VENOUS BLOOD SPECIMENOrdering Facility: [facility] Address: [address] [address] Performed By: #### 2 4344-4 ####[facility]ORATORYCLIA [id number] [place] [address] [place] Potassium [Moles/Vol] 4.0 mmol/L Normal 3.5-5.0 [facility] Comment on above: Order Comment: Speci men Type: VENOUS BLOOD SPECIMENOrdering Facility: [facility] Address: [address] [place] [address] Performed By: #### 2 4344-4 ####[facility]ORATORYCLIA [id number] [place] [address] [place] Sodium [Moles/Vol] 146 mmol/L High 136-144 [facility] Comment on above: Order Comment: Speci men Type: VENOUS BLOOD SPECIMENOrdering Facility: [facility] Address: [address] [place] [address] Performed By: #### 2 4344-4 ####[facility] LABORATORYCLIA [id number] [place] [address] [place] Magnesium SerPl-mCncon 07-21 Magnesium [Mass/Vol] 2.5 mg/dL High 1.7-2.3 [facility] Comment on above: Order Comment: Speci men Type: BLOOD SPECIMENOrdering Facility: [facility] Address: [address] [place] [address] Performed By: #### 1 9123-9, 2777-1, 08734-0 ####[facility]ORATORYCLIA [id number] [place] [address] [place] NURSING PROGon 07-21-2021 NURSING PROG Normal [facility] Phosphate SerPl-mCncon 07-21 Phosphate [Mass/Vol] 3.7 mg/dL Normal 2.7-4.8 [facility] Comment on above: Order Comment: Speci men Type: BLOOD SPECIMENOrdering Facility: [facility] Address: [address] [place] [address] Performed By: #### 1 9123-9, 2777-1, 66090-8 ####[facility] LABORATORYCLIA [id number] [address] OF [facility] THERAPY NTon 07-21-2021 THERAPY NT Normal [facility] XR CHEST 1V FRONTALon 2021 XR CHEST 1V FRONTAL Normal [facility] aPTT PPPon 07-21-2021 aPTT Coag (PPP) [Time] 53.0 s High 23.0-32.[address] [facility] Comment on above: Order Comment: Speci men Type: BLOOD SPECIMENOrdering Facility: [facility] Address: [address] [place] [address] Performed By: #### 1 4979-9 ####[facility]ORATORYCLIA [id number] [address] [place] ALLIED HEALTHon 07-20-2021 ALLIED HEALTH Normal [facility] Basic metabolic 2000 panelon 07-20-2021 Anion gap [Moles/Vol] 8 mmol/L Low 9-18 [facility] Comment on above: Order Comment: Speci men Type: BLOOD SPECIMENOrdering Facility: [facility] Address: [address] [place] [address] Performed By: #### 2 4321-2, , 2776-05 ####[facility] LABORATORYCLIA [id number] [place] [address] [place] [facility] Calcium [Mass/Vol] 9.7 mg/dL Normal 8.5-10.2 [facility] Comment on above: Order Comment: Speci men Type: BLOOD SPECIMENOrdering Facility: [facility] Address: [address] [place] [address] Performed By: #### 2 4321-2, , 2777 ####[facility] LABORATORYCLIA [id number] [place] [address] [place] Chloride [Moles/Vol] 104 mmol/L Normal 97-105 [facility] Comment on above: Order Comment: Speci men Type: BLOOD SPECIMENOrdering Facility: [facility] Address: [address] [place] [address] Performed By: #### 2 4321-2, , 2776-05 ####[facility] SERVICESCLIA [id number] [address] STATES OF [facility] CO2 [Moles/Vol] 34 mmol/L High 22-30 [facility] Comment on above: Order Comment: Speci men Type: BLOOD SPECIMENOrdering Facility: [facility] Address: [address] [place] [address] Performed By: #### 2 4321-2, , 2776-05 ####[facility] SERVICESCLIA [id number] [address] Creatinine [Mass/Vol] 0.76 mg/dL Normal 0.73-1.22 [facility] Comment on above: Order Comment: Speci men Type: BLOOD SPECIMENOrdering Facility: [facility] Address: [address] [place] [address] Performed By: #### 2 4321-2, , 2776-05 ####[facility] COUNTYIA [id number] [address] ESTIMATED GLOMERULAR FILTRATION RATE 97 mL/min/1.73m??? Normal >=60 [facility] Comment on above: Order Comment: Speci men Type: BLOOD SPECIMENOrdering Facility: [facility] Address: [address] [place] [address] Result Comment: Luzmaria mated Glomerular Filtration Rate [...] Performed By: #### 2 4321-2, , 2776-05 ####[facility] LABORATORYCLIA [id number] [place] [address] [place] Glucose [Mass/Vol] 123 mg/dL High 74-99 [facility] Comment on above: Order Comment: Speci men Type: BLOOD SPECIMENOrdering Facility: [facility] Address: [address] [place], [place] [address] Result Comment: The [employer] Diabetes [employer] (ADA) [...] Performed By: #### 2 4321-2, , 2776-05 ####[facility]ORATORYCLIA [id number] [place] [address] [place] Potassium [Moles/Vol] 4.4 mmol/L Normal 3.7-5.1 [facility] Comment on above: Order Comment: Shira francia Type: BLOOD SPECIMENOrdering Facility: [facility] Address: [address] [place], [place] [address] Performed By: #### 2 4321-2, , 2776-05 ####[facility]ORATORYCLIA [id number] [place] [address] [place] Sodium [Moles/Vol] 146 mmol/L High 136-144 [facility] Comment on above: Order Comment: Speci men Type: BLOOD SPECIMENOrdering Facility: [facility] Address: [address] [place], [place] [address] Performed By: #### 2 4321-2, , 2776-05 ####[facility] LABORATORYCLIA [id number] [place] [address] [place] Urea nitrogen [Mass/Vol] 38 mg/dL High 9-24 [facility] Comment on above: Order Comment: Speci men Type: BLOOD SPECIMENOrdering Facility: [facility] Address: [address] [place] [address] Performed By: #### 2 4321-2, 28050-4, 2777-1 ####[facility]ORATORYCLIA [id number] [address] [place] CASE MANAGEMon 07-20-2021 CASE MANAGEM Normal [facility] CBC W Auto Differential pane l (Bld)on 07-20-2021 Basophils (Bld) [#/Vol] 0.05 10*3/uL Normal <0.11 [facility] Comment on above: Order Comment: Speci men Type: BLOOD SPECIMENOrdering Facility: [facility] Address: [address] [place] [address] Performed By: #### 5 7021-8 ####[facility]ORATORYCLIA [id number] [place] [address] [place] Basophils/100 WBC (Bld) 0.5 % Normal [facility] Comment on above: Order Comment: Speci men Type: BLOOD SPECIMENOrdering Facility: [facility] Address: [address] [place] [address] Performed By: #### 5 7021-8 ####[facility]ORATORYCLIA [id number] [address] [place] Differential cell count method Nom (Bld) Auto Normal [facility] Comment on above: Order Comment: Speci men Type: BLOOD SPECIMENOrdering Facility: [facility] Address: [address] [place] [address] Performed By: #### 5 7021-8 ####[facility]ORATORYCLIA [id number] [place] [address] [place] Eosinophils (Bld) [#/Vol] 0.43 10*3/uL Normal <0.46 [facility] Comment on above: Order Comment: Speci men Type: BLOOD SPECIMENOrdering Facility: [facility] Address: [address] [place] [address] Performed By: #### 5 7021-8 ####[facility]ORATORYCLIA [id number] [address] Eosinophils/100 WBC (Bld) 4.1 % Normal [facility] Comment on above: Order Comment: Speci men Type: BLOOD SPECIMENOrdering Facility: [facility] Address: [address] [place] [address] Performed By: #### 5 7021-8 ####[facility]ORATORYCLIA [id number] [address] Erythrocyte distribution width (RBC) [Ratio] 16.7 % High 11.5-15.0 [facility] Comment on above: Order Comment: Speci men Type: BLOOD SPECIMENOrdering Facility: [facility] Address: [address] [place] [address] Performed By: #### 5 7021-8 ####[facility]ORATORYCLIA [id number] [address] Hematocrit (Bld) [Volume fraction] 33.0 % Low 39.0-51.0 [facility] Comment on above: Order Comment: Speci men Type: BLOOD SPECIMENOrdering Facility: [facility] Address: [address] [place] [address] Performed By: #### 5 7021-8 ####[facility]ORATORYCLIA [id number] [address] Hemoglobin (Bld) [Mass/Vol] 9.7 g/dL Low 13.0-17.0 [facility] Comment on above: Order Comment: Speci men Type: BLOOD SPECIMENOrdering Facility: [facility] Address: [address] [place] [address] Performed By: #### 5 7021-8 ####[facility]ORATORYCLIA [id number] [address] IMMATURE GRAN % 0.4 % Normal [facility] Comment on above: Order Comment: Speci men Type: BLOOD SPECIMENOrdering Facility: [facility] Address: [address] [place] [address] Performed By: #### 5 7021-8 ####[facility]ORATORYCLIA [id number] [address] IMMATURE GRAN ABS 0.04 k/uL Normal <0.10 [facility] Comment on above: Order Comment: Speci men Type: BLOOD SPECIMENOrdering Facility: [facility] Address: [address] [place] [address] Performed By: #### 5 7021-8 ####[facility]ORATORYCLIA [id number] [address] Lymphocytes (Bld) [#/Vol] 1.99 10*3/uL Normal 1.00-4.00 [facility] Comment on above: Order Comment: Speci men Type: BLOOD SPECIMENOrdering Facility: [facility] Address: [address] [place] [address] Performed By: #### 5 7021-8 ####[facility]ORATORYCLIA [id number] [address] Lymphocytes/100 WBC (Bld) 18.8 % Normal [facility] Comment on above: Order Comment: Speci men Type: BLOOD SPECIMENOrdering Facility: [facility] Address: [address] [place] [address] Performed By: #### 5 7021-8 ####[facility]ORATORYCLIA [id number] [address] [place] MCH (RBC) [Entitic mass] 27.8 pg Normal 26.0-34.0 [facility] Comment on above: Order Comment: Speci men Type: BLOOD SPECIMENOrdering Facility: [facility] Address: [address] [place] [address] Performed By: #### 5 7021-8 ####[facility]ORATORYCLIA [id number] [address] STATES OF [facility] MCHC (RBC) [Mass/Vol] 29.4 g/dL Low 30.5-36.0 [facility] Comment on above: Order Comment: Speci men Type: BLOOD SPECIMENOrdering Facility: [facility] Address: [address] [place] [address] Performed By: #### 5 7021-8 ####[facility]ORATORYCLIA [id number] [address] MCV (RBC) [Entitic vol] 94.6 fL Normal 80.0-100.0 [facility] Comment on above: Order Comment: Speci men Type: BLOOD SPECIMENOrdering Facility: [facility] Address: [address] [place] [address] Performed By: #### 5 7021-8 ####[facility]ORATORYCLIA [id number] [address] [place] Monocytes (Bld) [#/Vol] 0.82 10*3/uL Normal <0.87 [facility] Comment on above: Order Comment: Speci men Type: BLOOD SPECIMENOrdering Facility: [facility] Address: [address] [place] [address] Performed By: #### 5 7021-8 ####[facility]ORATORYCLIA [id number] [address] Monocytes/100 WBC (Bld) 7.8 % Normal [facility] Comment on above: Order Comment: Speci men Type: BLOOD SPECIMENOrdering Facility: [facility] Address: [address] [place] [address] Performed By: #### 5 7021-8 ####[facility]ORATORYCLIA [id number] [address] [place] Neutrophils (Bld) [#/Vol] 7.23 10*3/uL Normal 1.45-7.50 [facility] Comment on above: Order Comment: Speci men Type: BLOOD SPECIMENOrdering Facility: [facility] Address: [address] [address] Performed By: #### 5 7021-8 ####[facility]ORATORYCLIA [id number] [address] Neutrophils/100 WBC (Bld) 68.4 % Normal [facility] Comment on above: Order Comment: Speci men Type: BLOOD SPECIMENOrdering Facility: [facility] Address: [address] [place] [address] Performed By: #### 5 7021-8 ####[facility]ORATORYCLIA [id number] [address] [place] Nucleated RBC (Bld) [#/Vol] 10*3/uL Normal <0.01 [facility] Comment on above: Order Comment: Speci men Type: BLOOD SPECIMENOrdering Facility: [facility] Address: [address] [place] [address] Performed By: #### 5 7021-8 ####[facility]ORATORYCLIA [id number] [address] [place] Nucleated RBC/100 WBC (Bld) [Ratio] 0.0 /100 WBC Normal [facility] Comment on above: Order Comment: Speci men Type: BLOOD SPECIMENOrdering Facility: [facility] Address: [address] [place] [address] Performed By: #### 5 7021-8 ####[facility]ORATORYCLIA [id number] [address] [place] Platelet mean volume (Bld) [Entitic vol] 10.5 fL Normal 9.0-12.7 [facility] Comment on above: Order Comment: Speci men Type: BLOOD SPECIMENOrdering Facility: [facility] Address: [address] [place] [address] Performed By: #### 5 7021-8 ####[facility]ORATORYCLIA [id number] [place] [address] [place] Platelets (Bld) [#/Vol] 400 10*3/uL Normal 150-400 [facility] Comment on above: Order Comment: Speci men Type: BLOOD SPECIMENOrdering Facility: [facility] Address: [address] [place] [address] Performed By: #### 5 7021-8 ####[facility]ORATORYCLIA [id number] [address] [place] RBC (Bld) [#/Vol] 3.49 10*6/uL Low 4.20-6.00 [facility] Comment on above: Order Comment: Speci men Type: BLOOD SPECIMENOrdering Facility: [facility] Address: [address] [place] [address] Performed By: #### 5 7021-8 ####[facility]ORATORYCLIA [id number] [address] WBC (Bld) [#/Vol] 10.56 10*3/uL Normal 3.70-11.00 [facility] Comment on above: Order Comment: Speci men Type: BLOOD SPECIMENOrdering Facility: [facility] Address: [address] [place] [address] Performed By: #### 5 7021-8 ####[facility]ORATORYCLIA [id number] [address] CONSULT PROGon 07-20-2021 CONSULT PROG Normal [facility] CT BRAIN WO IVCONon 07-21-[address] BRAIN WO IVCON Normal [facility] Magnesium SerPl-mCncon 07-20 Magnesium [Mass/Vol] 2.4 mg/dL High 1.7-2.3 [facility] Comment on above: Order Comment: Speci men Type: BLOOD SPECIMENOrdering Facility: [facility] Address: [address] [place] [address] Performed By: #### 2 4321-2, 24128-7, 2777-1 ####[facility]ORATORYCLIA [id number] [address] [place] NUTRITIONon 07-20-2021 NUTRITION Normal [facility] Phosphate SerPl-mCncon 07-20 Phosphate [Mass/Vol] 4.1 mg/dL Normal 2.7-4.8 [facility] Comment on above: Order Comment: Speci men Type: BLOOD SPECIMENOrdering Facility: [facility] Address: [address] [place] [address] Performed By: #### 2 4321-2, 46738-9, 2777-1 ####[facility]ORATORYCLIA [id number] [place] [address] [place] aPTT PPPon 07-20-2021 aPTT Coag (PPP) [Time] 53.6 s High 23.0-32.[address] [facility] Comment on above: Order Comment: Speci men Type: BLOOD SPECIMENOrdering Facility: [facility] Address: [address] [place] [address] Performed By: #### 1 4979-9 ####[facility]ORATORYCLIA [id number] [place] [address] [place] Bacteria CSF Culton 07-20-19 22 Bacteria identified Cx Nom (CSF) CULTURE, CSF: No growth 14 days GRAM STAIN: No organisms seen No Polymorphonuclear Leukocytes Rare Mononuclear cells Gram stain performed on cytospun specimen. Normal [facility] Comment on above: Performed By: #### 6 06-4 ####[facility]ORATORYCLIA [id number] [place] [address] [place] CONSULT PROGon 07-19-2021 CONSULT PROG Normal [facility] CSF MANUAL DIFFon 07-19-2021 DIF TTL, CSF 100 cells counted Normal [facility] Comment on above: Order Comment: Speci men Type: CEREBROSPINAL FLUIDOrdering Facility: [facility] Address: [address] [place] [address] Performed By: #### L [id number], 57263-1, [id number] ####[facility]ORATORYCLIA [id number] [place] [address] [place] EOSIN%, CSF 1 % Normal [facility] Comment on above: Order Comment: Speci men Type: CEREBROSPINAL FLUIDOrdering Facility: [facility] Address: [address] [address] Performed By: #### L [id number], 26219-8, [id number] ####[facility] [facility]ATORYCLIA [id number] [place] [address] [place] LYMPH%, CSF 67 % Normal 50-90 [facility] Comment on above: Order Comment: Speci men Type: CEREBROSPINAL FLUIDOrdering Facility: [facility] Address: [address] [place] [address] Performed By: #### L [id number], 47136-7, [id number] ####[facility]ATORYCLIA [id number] [address] [place] MACRO%, CSF 1 % High <1 [facility] Comment on above: Order Comment: Speci men Type: CEREBROSPINAL FLUIDOrdering Facility: [facility] Address: [address] [place] [address] Performed By: #### L [id number], 42265-3, SVA1031 ####[facility]ATORYCLIA [id number] [address] [place] MONO%, CSF 18 % Normal 10-50 [facility] Comment on above: Order Comment: Speci men Type: CEREBROSPINAL FLUIDOrdering Facility: [facility] Address: [address] [address] Performed By: #### L UP1419, 46275-1, [id number] ####[facility] [facility]ATORYCLIA [id number] [address] [place] NEUT%, CSF 11 % High 0-3 [facility] Comment on above: Order Comment: Speci men Type: CEREBROSPINAL FLUIDOrdering Facility: [facility] Address: [facility] [address] Performed By: #### L LA5815, 47814-7, [id number] ####[facility] [facility]ATORYCLIA [id number] [address] [place] OTHER CL%, CSF 2 % Normal [facility] Comment on above: Order Comment: Speci men Type: CEREBROSPINAL FLUIDOrdering Facility: [facility] Address: [address] [place] [address] Result Comment: Path review to follow. Performed By: #### L [id number], 99804-4, [id number] ####[facility]ORATORYCLIA [id number] [address] [place] CSF PATHOLOGIST INTERP (LAB REFLEX ORDER-NO BILL)on 07-19-2021 CSF STAFF REVIEW Normal [facility] Comment on above: Order Comment: Speci men Type: CEREBROSPINAL FLUIDOrdering Facility: [facility] Address: [address] [place] [address] Performed By: #### L [id number], 26733-6, [id number] ####[facility]ATORYCLIA [id number] [address] Pathologist name Reviewed by Wing Cummings MD [facility] Comment on above: Order Comment: Speci men Type: CEREBROSPINAL FLUIDOrdering Facility: [facility] Address: [address] [place] [address] Performed By: #### L [id number], 92614-5, [id number] ####[facility]ATORYCLIA [id number] [address] Cell count panel (CSF)on Clarity (CSF) Clear Normal Clear [facility] Comment on above: Order Comment: Speci men Type: CEREBROSPINAL FLUIDOrdering Facility: [facility] Address: [address] [place] [address] Performed By: #### L MR7720, 07488-0, [id number] ####[facility]ATORYCLIA [id number] [address] Clarity (Unsp spec) Not Indicated Normal Clear [facility] Comment on above: Order Comment: Speci men Type: CEREBROSPINAL FLUIDOrdering Facility: [facility] Address: [address] [address] Performed By: #### L PA9209, 37217-7, [id number] ####[facility] [facility]ATORYCLIA [id number] [address] Color (CSF) Colorless Normal Colorless [facility] Comment on above: Order Comment: Speci men Type: CEREBROSPINAL FLUIDOrdering Facility: [facility] Address: [address] [place] [address] Performed By: #### L [id number], 47866-3, [id number] ####[facility]ATORYCLIA [id number] [address] OF [facility] Color (Spun CSF) Not Indicated Normal Colorless [facility] Comment on above: Order Comment: Speci men Type: CEREBROSPINAL FLUIDOrdering Facility: [facility] Address: [address] [place] [address] Performed By: #### L [id number], 42250-4, [id number] ####[facility]ATORYCLIA [id number] [address] CSF TUBE NUMBER [employer] Normal [facility] Comment on above: Order Comment: Speci men Type: CEREBROSPINAL FLUIDOrdering Facility: [facility] Address: [address] [place] [address] Performed By: #### L [id number], 94403-6, [id number] ####[facility]ORYCLIA [id number] [address] STATES OF [facility] RBC Manual cnt (CSF) [#/Vol] 0 cells/uL Normal 0-5 [facility] Comment on above: Order Comment: Speci men Type: CEREBROSPINAL FLUIDOrdering Facility: [facility] Address: [address] [place] [address] Performed By: #### L [id number], 72191-5, [id number] ####[facility] [facility]ATORYCLIA [id number] [address] OF [facility] WBC Manual cnt (CSF) [#/Vol] 2 cells/uL Normal 0-5 [facility] Comment on above: Order Comment: Speci men Type: CEREBROSPINAL FLUIDOrdering Facility: [facility] Address: [address] [place] [address] Performed By: #### L [id number], 81966-1, [id number] ####[facility]ATORYCLIA [id number] [address] [place] Glucose CSF-[facility] Glucose (CSF) [Mass/Vol] 69 mg/dL Normal 40-70 [facility] Comment on above: Order Comment: Speci men Type: CEREBROSPINAL FLUIDOrdering Facility: [facility] Address: [address] [place] [address] Result Comment: Lumb ar CSF glucose values of healthy patients are approximately 60% of the plasma values and must always be compared with a concurrently measured plasma value for adequate clinical interpretation.References: 1. Glucose HK (GLUC3) [package insert V 12.0 [place]]. [employer], [place], [place]. September 2015. 2. Michelle Moore, Loki HGarfield (2015). Chapter 7: Glucose and Lactate. F. Irina rose al.(eds.), Cerebrospinal Fluid in Clinical Neurology. [place]: [employer]. Performed By: #### 2 342-4, 2880-3 ####[facility]ORATORYCLIA [id number] [address] [place] NURSING PROGon 07-19-2021 NURSING PROG Normal [facility] NURSING PROG Normal [facility] Prot CSF-ncon 07-19-2021 Protein (CSF) [Mass/Vol] 51 mg/dL High 15-45 [facility] Comment on above: Order Comment: Speci men Type: CEREBROSPINAL FLUIDOrdering Facility: [facility] Address: [address] [place] [address] Performed By: #### 2 342-4, 2880-3 ####[facility]ORATORYCLIA [id number] [address] [place] THERAPY NTon 07-19-2021 THERAPY NT Normal [facility] Urinalysis complete panel (U )on 07-19-2021 Bilirubin Ql (U) Negative Normal Negative [facility] Comment on above: Order Comment: Speci men Type: URINE SPECIMENOrdering Facility: [facility] Address: [address] [place] [address] Performed By: #### 2 4356-8 ####[facility]ORATORYCLIA [id number] [address] Clarity (Unsp spec) Clear Normal Clear [facility] Comment on above: Order Comment: Speci men Type: URINE SPECIMENOrdering Facility: [facility] Address: [address] [place] [address] Performed By: #### 2 4356-8 ####[facility]ORATORYCLIA [id number] [address] Color (U) Colorless Normal yellow [facility] Comment on above: Order Comment: Speci men Type: URINE SPECIMENOrdering Facility: [facility] Address: [address] [place] [address] Performed By: #### 2 4356-8 ####[facility]ORATORYCLIA [id number] [address] Glucose Test strip (U) [Mass/Vol] Negative Normal Negative [facility] Comment on above: Order Comment: Speci men Type: URINE SPECIMENOrdering Facility: [facility] Address: [address] [place] [address] Performed By: #### 2 4356-8 ####[facility]ATORYCLIA [id number] [address] Hemoglobin Ql (U) Trace Abnormal Negative [facility] Comment on above: Order Comment: Speci men Type: URINE SPECIMENOrdering Facility: [facility] Address: [address] [place] [address] Performed By: #### 2 4356-8 ####[facility]ORATORYCLIA [id number] [address] [place] Hyaline casts (Urine sed) [#/Area] 1-3 /LPF Abnormal 0 /LPF [facility] Comment on above: Order Comment: Speci men Type: URINE SPECIMENOrdering Facility: [facility] Address: [address] [place] [address] Performed By: #### 2 4356-8 ####[facility]ORATORYCLIA [id number] [address] Ketones Ql (U) Negative Normal Negative [facility] Comment on above: Order Comment: Speci men Type: URINE SPECIMENOrdering Facility: [facility] Address: [address] [place] [address] Performed By: #### 2 4356-8 ####[facility]ATORYCLIA [id number] [address] Leukocyte esterase Test strip Ql (U) Negative Normal Negative [facility] Comment on above: Order Comment: Speci men Type: URINE SPECIMENOrdering Facility: [facility] Address: [address] [place] [address] Performed By: #### 2 4356-8 ####[facility]ORATORYCLIA [id number] [address] STATES [facility] Nitrite Ql (U) Negative Normal Negative [facility] Comment on above: Order Comment: Speci men Type: URINE SPECIMENOrdering Facility: [facility] Address: [address] [place] [address] Performed By: #### 2 4356-8 ####[facility]ORATORYCLIA [id number] [address] [place] pH (U) 7.0 [pH] Normal 5.0-8.0 [facility] Comment on above: Order Comment: Speci men Type: URINE SPECIMENOrdering Facility: [facility] Address: [address] [place] [address] Performed By: #### 2 4356-8 ####[facility]ORATORYCLIA [id number] [address] [place] Protein (U) [Mass/Vol] Negative Normal Negative [facility] Comment on above: Order Comment: Speci men Type: URINE SPECIMENOrdering Facility: [facility] Address: [address] [place] [address] Performed By: #### 2 4356-8 ####[facility]ORATORYCLIA [id number] [address] [place] RBC LM.HPF (Urine sed) [#/Area] 6-10 /HPF Abnormal 0-3 /HPF [facility] Comment on above: Order Comment: Speci men Type: URINE SPECIMENOrdering Facility: [facility] Address: [address] [place] [address] Performed By: #### 2 4356-8 ####[facility]ORATORYCLIA [id number] [address] Specific gravity (U) [Rel density] 1.008 Normal 1.005-1.030 [facility] Comment on above: Order Comment: Speci men Type: URINE SPECIMENOrdering Facility: [facility] Address: [address] [place] [address] Performed By: #### 2 4356-8 ####[facility]ORATORYCLIA [id number] [address] Urobilinogen Ql (U) Normal Normal Negative [facility] Comment on above: Order Comment: Speci men Type: URINE SPECIMENOrdering Facility: [facility] Address: [address] [place] [address] Performed By: #### 2 4356-8 ####[facility] LABORATORYCLIA [id number] [address] [place] WBC LM.HPF (Urine sed) [#/Area] 0-5 /HPF Normal 0-5 /HPF [facility] Comment on above: Order Comment: Speci men Type: URINE SPECIMENOrdering Facility: [facility] Address: [address] [place] [address] Performed By: #### 2 4356-8 ####[facility] LABORATORYCLIA [id number] [address] STATES OF [facility] Vancomycin random [Mass/Vol] on 07-19-2021 Vancomycin [Mass/Vol] 13.9 ug/mL Normal 10.0-20.0 [facility] Comment on above: Order Comment: Speci men Type: BLOOD SPECIMENOrdering Facility: [facility] Address: [address] [place] [address] Result Comment: Refe rence ranges and high/low indicator flags are provided as general guidelines only. The treating physician must determine appropriate target levels/dosing based on the specific clinical situation. Performed By: #### 4 091-5 ####[facility] LABORATORYCLIA [id number] [address] STATES OF [facility] aPTT PPPon 07-19-2021 aPTT Coag (PPP) [Time] 53.9 s High 23.0-32.[address] [facility] Comment on above: Order Comment: Speci men Type: BLOOD SPECIMENOrdering Facility: [facility] Address: [address] [place] [address] Performed By: #### 1 4979-9 ####[facility] HE[facility] SERVICESCLIA [id number] [place] [address] [place] Basic metabolic 2000 panelon 07-18-2021 Anion gap [Moles/Vol] 6 mmol/L Low 9-18 [facility] Comment on above: Order Comment: Speci men Type: BLOOD SPECIMENOrdering Facility: [facility] Address: [address] [place] [address] Performed By: #### 2 4321-2, 82041-1, 2777-1 ####[facility] LABORATORYCLIA [id number] [address] [place] Calcium [Mass/Vol] 9.4 mg/dL Normal 8.5-10.2 [facility] Comment on above: Order Comment: Speci men Type: BLOOD SPECIMENOrdering Facility: [facility] Address: [address] [place] [address] Performed By: #### 2 4321-2, , 2776-05 ####[facility] LABORATORYCLIA [id number] [place] [id number] [place] Chloride [Moles/Vol] 103 mmol/L Normal 97-105 [facility] Comment on above: Order Comment: Speci men Type: BLOOD SPECIMENOrdering Facility: [facility] Address: [address] [place] [address] Performed By: #### 2 4321-2, , 2776-05 ####[facility] LABORATORYCLIA [id number] [place] [address] [place] CO2 [Moles/Vol] 34 mmol/L High 22-30 [facility] Comment on above: Order Comment: Speci men Type: BLOOD SPECIMENOrdering Facility: [facility] Address: [address] [place] [address] Performed By: #### 2 4321-2, , 2776-05 ####[facility] LABORATORYCLIA [id number] [address] STATES OF [facility] Creatinine [Mass/Vol] 0.75 mg/dL Normal 0.73-1.22 [facility] Comment on above: Order Comment: Speci men Type: BLOOD SPECIMENOrdering Facility: [facility] Address: [address] [place] [address] Performed By: #### 2 4321-2, , 2776-05 ####[facility] LABORATORYCLIA [id number] [address] ESTIMATED GLOMERULAR FILTRATION RATE 98 mL/min/1.73m??? Normal >=60 [facility] Comment on above: Order Comment: Speci men Type: BLOOD SPECIMENOrdering Facility: [facility] Address: [address] [place] [address] Result Comment: Luzmaria mated Glomerular Filtration Rate [...] Performed By: #### 2 4321-2, , 2776-05 ####[facility] LABORATORYCLIA [id number] [place] [address] [place] Glucose [Mass/Vol] 125 mg/dL High 74-99 [facility] Comment on above: Order Comment: Shira feldman Type: BLOOD SPECIMENOrdering Facility: [facility] Address: [address] [place] [address] Result Comment: The [employer] (ADA) [...] Performed By: #### 2 4321-2, , 2776-05 ####[facility] LABORATORYCLIA [id number] [place] [address] [place] Potassium [Moles/Vol] 4.4 mmol/L Normal 3.7-5.1 [facility] Comment on above: Order Comment: Shira feldman Type: BLOOD SPECIMENOrdering Facility: [facility] Address: [address] [place] [address] Performed By: #### 2 4321-2, , 2776-05 ####[facility] LABORATORYCLIA [id number] [place] [address] [place] Sodium [Moles/Vol] 143 mmol/L Normal 136-144 [facility] Comment on above: Order Comment: Speci men Type: BLOOD SPECIMENOrdering Facility: [facility] Address: [address] [place] [address] Performed By: #### 2 4321-2, , 2776-05 ####[facility] LABORATORYCLIA [id number] [address] STATES [facility] Urea nitrogen [Mass/Vol] 33 mg/dL High 9-24 [facility] Comment on above: Order Comment: Speci men Type: BLOOD SPECIMENOrdering Facility: [facility] Address: [address] [place] [address] Performed By: #### 2 4321-2, , 2776-05 ####[facility] LABORATORYCLIA [id number] [address] [place] CASE MANAGEMon 07-18-2021 CASE MANAGEM Normal [facility] CBC W Auto Differential pane l (Bld)on 07-18-2021 Basophils (Bld) [#/Vol] 0.05 10*3/uL Normal <0.11 [facility] Comment on above: Order Comment: Speci men Type: BLOOD SPECIMENOrdering Facility: [facility] Address: [address] [place] [address] Performed By: #### 5 7021-8 ####[facility] LABORATORYCLIA [id number] [address] STATES [facility] Basophils/100 WBC (Bld) 0.5 % Normal [facility] Comment on above: Order Comment: Speci men Type: BLOOD SPECIMENOrdering Facility: [facility] Address: [address] [place] [address] Performed By: #### 5 7021-8 ####[facility] LABORATORYCLIA [id number] [address] STATES OF [facility] Differential cell count method Nom (Bld) Auto Normal [facility] Comment on above: Order Comment: Speci men Type: BLOOD SPECIMENOrdering Facility: [facility] Address: [address] [place] [address] Performed By: #### 5 7021-8 ####[facility] LABORATORYCLIA [id number] [address] [place] Eosinophils (Bld) [#/Vol] 0.44 10*3/uL Normal <0.46 [facility] Comment on above: Order Comment: Speci men Type: BLOOD SPECIMENOrdering Facility: [facility] Address: [address] [place] [address] Performed By: #### 5 7021-8 ####[facility] LABORATORYCLIA [id number] [address] Eosinophils/100 WBC (Bld) 4.3 % Normal [facility] Comment on above: Order Comment: Speci men Type: BLOOD SPECIMENOrdering Facility: [facility] Address: [address] [place] [address] Performed By: #### 5 7021-8 ####[facility] LABORATORYCLIA [id number] [address] Erythrocyte distribution width (RBC) [Ratio] 16.6 % High 11.5-15.0 [facility] Comment on above: Order Comment: Speci men Type: BLOOD SPECIMENOrdering Facility: [facility] Address: [address] [place] [address] Performed By: #### 5 7021-8 ####[facility] LABORATORYCLIA [id number] [address] Hematocrit (Bld) [Volume fraction] 32.2 % Low 39.0-51.0 [facility] Comment on above: Order Comment: Speci men Type: BLOOD SPECIMENOrdering Facility: [facility] Address: [address] [place] [address] Performed By: #### 5 7021-8 ####[facility] LABORATORYCLIA [id number] [address] [place] Hemoglobin (Bld) [Mass/Vol] 9.5 g/dL Low 13.0-17.0 [facility] Comment on above: Order Comment: Speci men Type: BLOOD SPECIMENOrdering Facility: [facility] Address: [address] [place] [address] Performed By: #### 5 7021-8 ####[facility] LABORATORYCLIA [id number] [address] IMMATURE GRAN % 0.4 % Normal [facility] Comment on above: Order Comment: Speci men Type: BLOOD SPECIMENOrdering Facility: [facility] Address: [address] [place] [address] Performed By: #### 5 7021-8 ####[facility] LABORATORYCLIA [id number] [address] IMMATURE GRAN ABS 0.04 k/uL Normal <0.10 [facility] Comment on above: Order Comment: Speci men Type: BLOOD SPECIMENOrdering Facility: [facility] Address: [address] [place] [address] Performed By: #### 5 7021-8 ####[facility] LABORATORYCLIA [id number] [address] Lymphocytes (Bld) [#/Vol] 1.71 10*3/uL Normal 1.00-4.00 [facility] Comment on above: Order Comment: Speci men Type: BLOOD SPECIMENOrdering Facility: [facility] Address: [address] [place] [address] Performed By: #### 5 7021-8 ####[facility] LABORATORYCLIA [id number] [address] Lymphocytes/100 WBC (Bld) 16.9 % Normal [facility] Comment on above: Order Comment: Speci men Type: BLOOD SPECIMENOrdering Facility: [facility] Address: [address] [place] [address] Performed By: #### 5 7021-8 ####[facility] LABORATORYCLIA [id number] [address] MCH (RBC) [Entitic mass] 27.9 pg Normal 26.0-34.0 [facility] Comment on above: Order Comment: Speci men Type: BLOOD SPECIMENOrdering Facility: [facility] Address: [address] [place] [address] Performed By: #### 5 7021-8 ####[facility] LABORATORYCLIA [id number] [address] STATES [facility] MCHC (RBC) [Mass/Vol] 29.5 g/dL Low 30.5-36.0 [facility] Comment on above: Order Comment: Speci men Type: BLOOD SPECIMENOrdering Facility: [facility] Address: [address] [place] [address] Performed By: #### 5 7021-8 ####[facility] LABORATORYCLIA [id number] [address] STATES OF [facility] MCV (RBC) [Entitic vol] 94.7 fL Normal 80.0-100.0 [facility] Comment on above: Order Comment: Speci men Type: BLOOD SPECIMENOrdering Facility: [facility] Address: [address] [place] [address] Performed By: #### 5 7021-8 ####[facility] LABORATORYCLIA [id number] [address] Monocytes (Bld) [#/Vol] 0.69 10*3/uL Normal <0.87 [facility] Comment on above: Order Comment: Speci men Type: BLOOD SPECIMENOrdering Facility: [facility] Address: [address] [place] [address] Performed By: #### 5 7021-8 ####[facility] LABORATORYCLIA [id number] [address] Monocytes/100 WBC (Bld) 6.8 % Normal [facility] Comment on above: Order Comment: Speci men Type: BLOOD SPECIMENOrdering Facility: [facility] Address: [address] [place] [address] Performed By: #### 5 7021-8 ####[facility] LABORATORYCLIA [id number] [place] [address] [place] Neutrophils (Bld) [#/Vol] 7.19 10*3/uL Normal 1.45-7.50 [facility] Comment on above: Order Comment: Speci men Type: BLOOD SPECIMENOrdering Facility: [facility] Address: [address] [place] [address] Performed By: #### 5 7021-8 ####[facility] LABORATORYCLIA [id number] [address] [place] Neutrophils/100 WBC (Bld) 71.1 % Normal [facility] Comment on above: Order Comment: Speci men Type: BLOOD SPECIMENOrdering Facility: [facility] Address: [address] [place] [address] Performed By: #### 5 7021-8 ####[facility] LABORATORYCLIA [id number] [address] [place] Nucleated RBC (Bld) [#/Vol] 10*3/uL Normal <0.01 [facility] Comment on above: Order Comment: Speci men Type: BLOOD SPECIMENOrdering Facility: [facility] Address: [address] [place] [address] Performed By: #### 5 7021-8 ####[facility] LABORATORYCLIA [id number] [address] [place] Nucleated RBC/100 WBC (Bld) [Ratio] 0.0 /100 WBC Normal [facility] Comment on above: Order Comment: Speci men Type: BLOOD SPECIMENOrdering Facility: [facility] Address: [address] [place] [address] Performed By: #### 5 7021-8 ####[facility] LABORATORYCLIA [id number] [address] [place] Platelet mean volume (Bld) [Entitic vol] 10.3 fL Normal 9.0-12.7 [facility] Comment on above: Order Comment: Speci men Type: BLOOD SPECIMENOrdering Facility: [facility] Address: [address] [place] [address] Performed By: #### 5 7021-8 ####[facility] LABORATORYCLIA [id number] [address] Platelets (Bld) [#/Vol] 403 10*3/uL High 150-400 [facility] Comment on above: Order Comment: Speci men Type: BLOOD SPECIMENOrdering Facility: [facility] Address: [address] [place] [address] Performed By: #### 5 7021-8 ####[facility] LABORATORYCLIA [id number] [address] [place] RBC (Bld) [#/Vol] 3.40 10*6/uL Low 4.20-6.00 [facility] Comment on above: Order Comment: Speci men Type: BLOOD SPECIMENOrdering Facility: [facility] Address: [address] [place] [address] Performed By: #### 5 7021-8 ####[facility] LABORATORYCLIA [id number] [address] OF [facility] WBC (Bld) [#/Vol] 10.12 10*3/uL Normal 3.70-11.00 [facility] Comment on above: Order Comment: Speci men Type: BLOOD SPECIMENOrdering Facility: [facility] Address: [address] [place] [address] Performed By: #### 5 7021-8 ####[facility] LABORATORYCLIA [id number] [address] Magnesium SerPl-mCncon 07-18 Magnesium [Mass/Vol] 2.4 mg/dL High 1.7-2.3 [facility] Comment on above: Order Comment: Speci men Type: BLOOD SPECIMENOrdering Facility: [facility] Address: [address] [place] [address] Performed By: #### 2 4321-2, 69944-9, 2777-1 ####[facility] LABORATORYCLIA [id number] [address] [place] NURSING PROGon 07-18-2021 NURSING PROG Normal [facility] NURSING PROG Normal [facility] Phosphate SerPl-mCncon 07-18 Phosphate [Mass/Vol] 3.9 mg/dL Normal 2.7-4.8 [facility] Comment on above: Order Comment: Speci men Type: BLOOD SPECIMENOrdering Facility: [facility] Address: [address] [place] [address] Performed By: #### 2 4321-2, 33371-9, 2777-1 ####[facility] LABORATORYCLIA [id number] [address] THERAPY NTon 07-18-2021 THERAPY NT Normal [facility] aPTT PPPon 07-18-2021 aPTT Coag (PPP) [Time] 52.3 s High 23.0-32.[address] [facility] Comment on above: Order Comment: Speci men Type: BLOOD SPECIMENOrdering Facility: [facility] Address: [address] [place] [address] Performed By: #### 1 4979-9 ####[facility] LABORATORYCLIA [id number] [address] STATES OF [facility] CBC W Auto Differential pane l (Bld)on 07-17-2021 Basophils (Bld) [#/Vol] 0.05 10*3/uL Normal <0.11 [facility] Comment on above: Order Comment: Speci men Type: BLOOD SPECIMENOrdering Facility: [facility] Address: [address] [place] [address] Performed By: #### 5 7021-8 ####[facility] LABORATORYCLIA [id number] [address] Basophils/100 WBC (Bld) 0.5 % Normal [facility] Comment on above: Order Comment: Speci men Type: BLOOD SPECIMENOrdering Facility: [facility] Address: [address] [place] [address] Performed By: #### 5 7021-8 ####[facility] LABORATORYCLIA [id number] [address] Differential cell count method Nom (Bld) Auto Normal [facility] Comment on above: Order Comment: Speci men Type: BLOOD SPECIMENOrdering Facility: [facility] Address: [address] [place] [address] Performed By: #### 5 7021-8 ####[facility] LABORATORYCLIA [id number] [address] [place] Eosinophils (Bld) [#/Vol] 0.32 10*3/uL Normal <0.46 [facility] Comment on above: Order Comment: Speci men Type: BLOOD SPECIMENOrdering Facility: [facility] Address: [address] [place] [address] Performed By: #### 5 7021-8 ####[facility] LABORATORYCLIA [id number] [address] Eosinophils/100 WBC (Bld) 3.4 % Normal [facility] Comment on above: Order Comment: Speci men Type: BLOOD SPECIMENOrdering Facility: [facility] Address: [address] [place] [address] Performed By: #### 5 7021-8 ####[facility] LABORATORYCLIA [id number] [address] [place] Erythrocyte distribution width (RBC) [Ratio] 16.6 % High 11.5-15.0 [facility] Comment on above: Order Comment: Speci men Type: BLOOD SPECIMENOrdering Facility: [facility] Address: [address] [place] [address] Performed By: #### 5 7021-8 ####[facility] LABORATORYCLIA [id number] [address] [place] Hematocrit (Bld) [Volume fraction] 30.7 % Low 39.0-51.0 [facility] Comment on above: Order Comment: Speci men Type: BLOOD SPECIMENOrdering Facility: [facility] Address: [address] [place] [address] Performed By: #### 5 7021-8 ####[facility] LABORATORYCLIA [id number] [address] [place] Hemoglobin (Bld) [Mass/Vol] 9.0 g/dL Low 13.0-17.0 [facility] Comment on above: Order Comment: Speci men Type: BLOOD SPECIMENOrdering Facility: [facility] Address: [address] [place] [address] Performed By: #### 5 7021-8 ####[facility] LABORATORYCLIA [id number] [address] IMMATURE GRAN % 0.6 % Normal [facility] Comment on above: Order Comment: Speci men Type: BLOOD SPECIMENOrdering Facility: [facility] Address: [address] [place] [address] Performed By: #### 5 7021-8 ####[facility] LABORATORYCLIA [id number] [address] IMMATURE GRAN ABS 0.06 k/uL Normal <0.10 [facility] Comment on above: Order Comment: Speci men Type: BLOOD SPECIMENOrdering Facility: [facility] Address: [address] [place] [address] Performed By: #### 5 7021-8 ####[facility] LABORATORYCLIA [id number] [address] [place] Lymphocytes (Bld) [#/Vol] 1.61 10*3/uL Normal 1.00-4.00 [facility] Comment on above: Order Comment: Speci men Type: BLOOD SPECIMENOrdering Facility: [facility] Address: [address] [place] [address] Performed By: #### 5 7021-8 ####[facility] LABORATORYCLIA [id number] [address] Lymphocytes/100 WBC (Bld) 17.3 % Normal [facility] Comment on above: Order Comment: Speci men Type: BLOOD SPECIMENOrdering Facility: [facility] Address: [address] [place] [address] Performed By: #### 5 7021-8 ####[facility] LABORATORYCLIA [id number] [address] STATES OF [facility] MCH (RBC) [Entitic mass] 26.9 pg Normal 26.0-34.0 [facility] Comment on above: Order Comment: Speci men Type: BLOOD SPECIMENOrdering Facility: [facility] Address: [address] [place] [address] Performed By: #### 5 7021-8 ####[facility] LABORATORYCLIA [id number] [address] [place] MCHC (RBC) [Mass/Vol] 29.3 g/dL Low 30.5-36.0 [facility] Comment on above: Order Comment: Speci men Type: BLOOD SPECIMENOrdering Facility: [facility] Address: [address] [place] [address] Performed By: #### 5 7021-8 ####[facility] LABORATORYCLIA [id number] [address] MCV (RBC) [Entitic vol] 91.9 fL Normal 80.0-100.0 [facility] Comment on above: Order Comment: Speci men Type: BLOOD SPECIMENOrdering Facility: [facility] Address: [address] [place] [address] Performed By: #### 5 7021-8 ####[facility] LABORATORYCLIA [id number] [address] Monocytes (Bld) [#/Vol] 0.61 10*3/uL Normal <0.87 [facility] Comment on above: Order Comment: Speci men Type: BLOOD SPECIMENOrdering Facility: [facility] Address: [address] [place] [address] Performed By: #### 5 7021-8 ####[facility]ORATORYCLIA [id number] [address] [place] Monocytes/100 WBC (Bld) 6.6 % Normal [facility] Comment on above: Order Comment: Speci men Type: BLOOD SPECIMENOrdering Facility: [facility] Address: [address] [place] [address] Performed By: #### 5 7021-8 ####[facility] LABORATORYCLIA [id number] [place] [address] [place] Neutrophils (Bld) [#/Vol] 6.64 10*3/uL Normal 1.45-7.50 [facility] Comment on above: Order Comment: Speci men Type: BLOOD SPECIMENOrdering Facility: [facility] Address: [address] [place] [address] Performed By: #### 5 7021-8 ####[facility] LABORATORYCLIA [id number] [address] Neutrophils/100 WBC (Bld) 71.6 % Normal [facility] Comment on above: Order Comment: Speci men Type: BLOOD SPECIMENOrdering Facility: [facility] Address: [address] [place] [address] Performed By: #### 5 7021-8 ####[facility]ORATORYCLIA [id number] [address] [place] Nucleated RBC (Bld) [#/Vol] 10*3/uL Normal <0.01 [facility] Comment on above: Order Comment: Speci men Type: BLOOD SPECIMENOrdering Facility: [facility] Address: [address] [place] [address] Performed By: #### 5 7021-8 ####[facility] LABORATORYCLIA [id number] [address] [place] Nucleated RBC/100 WBC (Bld) [Ratio] 0.0 /100 WBC Normal [facility] Comment on above: Order Comment: Speci men Type: BLOOD SPECIMENOrdering Facility: [facility] Address: [address] Performed By: #### 5 7021-8 ####[facility] LABORATORYCLIA [id number] [address] STATES [facility] Platelet mean volume (Bld) [Entitic vol] 10.1 fL Normal 9.0-12.7 [facility] Comment on above: Order Comment: Speci men Type: BLOOD SPECIMENOrdering Facility: [facility] Address: [address] [place] [address] Performed By: #### 5 7021-8 ####[facility] LABORATORYCLIA [id number] [address] [place] Platelets (Bld) [#/Vol] 387 10*3/uL Normal 150-400 [facility] Comment on above: Order Comment: Speci men Type: BLOOD SPECIMENOrdering Facility: [facility] Address: [address] [place] [address] Performed By: #### 5 7021-8 ####[facility] LABORATORYCLIA [id number] [address] [place] RBC (Bld) [#/Vol] 3.34 10*6/uL Low 4.20-6.00 [facility] Comment on above: Order Comment: Speci men Type: BLOOD SPECIMENOrdering Facility: [facility] Address: [address] [place], [place] [address] Performed By: #### 5 7021-8 ####[facility] LABORATORYCLIA [id number] [address] [place] WBC (Bld) [#/Vol] 9.29 10*3/uL Normal 3.70-11.00 [facility] Comment on above: Order Comment: Speci men Type: BLOOD SPECIMENOrdering Facility: [facility] Address: [address] [place] [address] Performed By: #### 5 7021-8 ####[facility] LABORATORYCLIA [id number] [address] [place] CONSULT PROGon 07-17-2021 CONSULT PROG Normal [facility] Magnesium SerPl-mCncon 07-17 Magnesium [Mass/Vol] 2.3 mg/dL Normal 1.7-2.3 [facility] Comment on above: Order Comment: Speci men Type: BLOOD SPECIMENOrdering Facility: [facility] Address: [address] [place] [address] Performed By: #### 2 [id number], 47606-1 ####[facility] LABORATORYCLIA [id number] [address] NURSING PROGon 07-17-2021 NURSING PROG Normal [facility] [facility]UR[facility] PROG Normal [facility] NURSING PROG Normal [facility] Phosphate SerPl-mCncon 07-17 Phosphate [Mass/Vol] 3.6 mg/dL Normal 2.7-4.8 [facility] Comment on above: Order Comment: Speci men Type: BLOOD SPECIMENOrdering Facility: [facility] Address: [address] [place] [address] Performed By: #### 2 777-1, 12024-0 ####[facility] LABORATORYCLIA [id number] [address] aPTT PPPon 07-17-2021 aPTT Coag (PPP) [Time] 57.2 s High 23.0-32.[address] [facility] Comment on above: Order Comment: Speci men Type: BLOOD SPECIMENOrdering Facility: [facility] Address: [address] [place] [address] Performed By: #### 1 4979-9 ####[facility] LABORATORYCLIA [id number] [address] [place] Basic metabolic 2000 panelon 07-16-2021 Anion gap [Moles/Vol] 5 mmol/L Low 9-18 [facility] Comment on above: Order Comment: Speci men Type: BLOOD SPECIMENOrdering Facility: [facility] Address: [address] [place], [place] [address] Performed By: #### 2 777-1, 13411-4, ####[facility] LABORATORYCLIA [id number] [place] [address] [place] Calcium [Mass/Vol] 9.1 mg/dL Normal 8.5-10.2 [facility] Comment on above: Order Comment: Speci men Type: BLOOD SPECIMENOrdering Facility: [facility] Address: [address] [place] [address] Performed By: #### 2 777-1, 14032-2, ####[facility] LABORATORYCLIA [id number] [place] [address] [place] Chloride [Moles/Vol] 101 mmol/L Normal 97-105 [facility] Comment on above: Order Comment: Speci men Type: BLOOD SPECIMENOrdering Facility: [facility] Address: [address] [place] [address] Performed By: #### 2 777-1, , ####[facility] LABORATORYCLIA [id number] [place] [address] [place] CO2 [Moles/Vol] 35 mmol/L High 22-30 [facility] Comment on above: Order Comment: Speci men Type: BLOOD SPECIMENOrdering Facility: [facility] Address: [address] [place] [address] Performed By: #### 2 777-1, , ####[facility] LABORATORYCLIA [id number] [place] [address] [place] Creatinine [Mass/Vol] 0.73 mg/dL Normal 0.73-1.22 [facility] Comment on above: Order Comment: Speci men Type: BLOOD SPECIMENOrdering Facility: [facility] Address: [address] [place] [address] Performed By: #### 2 777-1, 84490-2, ####[facility]ORATORYCLIA [id number] [place] [address] [place] ESTIMATED GLOMERULAR FILTRATION RATE 98 mL/min/1.73m??? Normal >=60 [facility] Comment on above: Order Comment: Shira feldman Type: BLOOD SPECIMENOrdering Facility: [facility] Address: [address] [place], [place] [address] Result Comment: Luzmaria mated Glomerular Filtration Rate [...] actual GFR. Performed By: #### 2 777-1, 34072-5, ####[facility] LABORATORYCLIA [id number] [place] [id number] [place] Glucose [Mass/Vol] 133 mg/dL High 74-99 [facility] Comment on above: Order Comment: Shira feldman Type: BLOOD SPECIMENOrdering Facility: [facility] Address: [address] [place] [address] Result Comment: The [employer] (ADA) [...] 2016.39(Suppl 1). Performed By: #### 2 777-1, 54791-1, ####[facility] LABORATORYCLIA [id number] [place] [address] [place] Potassium [Moles/Vol] 4.2 mmol/L Normal 3.7-5.1 [facility] Comment on above: Order Comment: Speci men Type: BLOOD SPECIMENOrdering Facility: [facility] Address: [address] [place] [address] Performed By: #### 2 777-1, 18645-1, ####[facility] LABORATORYCLIA [id number] [place] [address] [place] Sodium [Moles/Vol] 141 mmol/L Normal 136-144 [facility] Comment on above: Order Comment: Speci men Type: BLOOD SPECIMENOrdering Facility: [facility] Address: [address] [place] [address] Performed By: #### 2 777-1, , ####[facility] LABORATORYCLIA [id number] [address] [place] Urea nitrogen [Mass/Vol] 21 mg/dL Normal 9-24 [facility] Comment on above: Order Comment: Speci men Type: BLOOD SPECIMENOrdering Facility: [facility] Address: [address] [place] [address] Performed By: #### 2 777-1, , ####[facility]ORATORYCLIA [id number] [address] [place] CBC W Auto Differential pane l (Bld)on 07-16-2021 Basophils (Bld) [#/Vol] 0.06 10*3/uL Normal <0.11 [facility] Comment on above: Order Comment: Speci men Type: BLOOD SPECIMENOrdering Facility: [facility] Address: [address] [place] [address] Performed By: #### 5 7021-8 ####[facility] LABORATORYCLIA [id number] [address] [place] Basophils/100 WBC (Bld) 0.7 % Normal [facility] Comment on above: Order Comment: Speci men Type: BLOOD SPECIMENOrdering Facility: [facility] Address: [address] [address] Performed By: #### 5 7021-8 ####[facility]ORATORYCLIA [id number] [address] Differential cell count method Nom (Bld) Auto Normal [facility] Comment on above: Order Comment: Speci men Type: BLOOD SPECIMENOrdering Facility: [facility] Address: [address] [place] [address] Performed By: #### 5 7021-8 ####[facility]ORATORYCLIA [id number] [address] [place] Eosinophils (Bld) [#/Vol] 0.35 10*3/uL Normal <0.46 [facility] Comment on above: Order Comment: Speci men Type: BLOOD SPECIMENOrdering Facility: [facility] Address: [address] [place] [address] Performed By: #### 5 7021-8 ####[facility] LABORATORYCLIA [id number] [address] Eosinophils/100 WBC (Bld) 3.9 % Normal [facility] Comment on above: Order Comment: Speci men Type: BLOOD SPECIMENOrdering Facility: [facility] Address: [address] [place] [address] Performed By: #### 5 7021-8 ####[facility] LABORATORYCLIA [id number] [address] [place] Erythrocyte distribution width (RBC) [Ratio] 16.5 % High 11.5-15.0 [facility] Comment on above: Order Comment: Speci men Type: BLOOD SPECIMENOrdering Facility: [facility] Address: [address] [place] [address] Performed By: #### 5 7021-8 ####[facility]ORATORYCLIA [id number] [address] [place] Hematocrit (Bld) [Volume fraction] 30.9 % Low 39.0-51.0 [facility] Comment on above: Order Comment: Speci men Type: BLOOD SPECIMENOrdering Facility: [facility] Address: [address] [place] [address] Performed By: #### 5 7021-8 ####[facility]ORATORYCLIA [id number] [address] [place] Hemoglobin (Bld) [Mass/Vol] 9.1 g/dL Low 13.0-17.0 [facility] Comment on above: Order Comment: Speci men Type: BLOOD SPECIMENOrdering Facility: [facility] Address: [address] [place] [address] Performed By: #### 5 7021-8 ####[facility]ORATORYCLIA [id number] [address] IMMATURE GRAN % 0.4 % Normal [facility] Comment on above: Order Comment: Speci men Type: BLOOD SPECIMENOrdering Facility: [facility] Address: [address] [place] [address] Performed By: #### 5 7021-8 ####[facility]ORATORYCLIA [id number] [address] IMMATURE GRAN ABS 0.04 k/uL Normal <0.10 [facility] Comment on above: Order Comment: Speci men Type: BLOOD SPECIMENOrdering Facility: [facility] Address: [address] [place] [address] Performed By: #### 5 7021-8 ####[facility]ORATORYCLIA [id number] [address] [place] Lymphocytes (Bld) [#/Vol] 1.35 10*3/uL Normal 1.00-4.00 [facility] Comment on above: Order Comment: Speci men Type: BLOOD SPECIMENOrdering Facility: [facility] Address: [address] [place] [address] Performed By: #### 5 7021-8 ####[facility]ORATORYCLIA [id number] [address] Lymphocytes/100 WBC (Bld) 15.0 % Normal [facility] Comment on above: Order Comment: Speci men Type: BLOOD SPECIMENOrdering Facility: [facility] Address: [address] [place] [address] Performed By: #### 5 7021-8 ####[facility]ORATORYCLIA [id number] [address] STATES OF [facility] MCH (RBC) [Entitic mass] 27.1 pg Normal 26.0-34.0 [facility] Comment on above: Order Comment: Speci men Type: BLOOD SPECIMENOrdering Facility: [facility] Address: [address] [place] [address] Performed By: #### 5 7021-8 ####[facility]ORATORYCLIA [id number] [address] MCHC (RBC) [Mass/Vol] 29.4 g/dL Low 30.5-36.0 [facility] Comment on above: Order Comment: Speci men Type: BLOOD SPECIMENOrdering Facility: [facility] Address: [address] [place] [address] Performed By: #### 5 7021-8 ####[facility]ORATORYCLIA [id number] [address] MCV (RBC) [Entitic vol] 92.0 fL Normal 80.0-100.0 [facility] Comment on above: Order Comment: Speci men Type: BLOOD SPECIMENOrdering Facility: [facility] Address: [address] [place] [address] Performed By: #### 5 7021-8 ####[facility]ORATORYCLIA [id number] [address] Monocytes (Bld) [#/Vol] 0.53 10*3/uL Normal <0.87 [facility] Comment on above: Order Comment: Speci men Type: BLOOD SPECIMENOrdering Facility: [facility] Address: [address] [place] [address] Performed By: #### 5 7021-8 ####[facility]ORATORYCLIA [id number] [address] [place] Monocytes/100 WBC (Bld) 5.9 % Normal [facility] Comment on above: Order Comment: Speci men Type: BLOOD SPECIMENOrdering Facility: [facility] Address: [address] [place] [address] Performed By: #### 5 7021-8 ####[facility]ORATORYCLIA [id number] [address] [place] Neutrophils (Bld) [#/Vol] 6.67 10*3/uL Normal 1.45-7.50 [facility] Comment on above: Order Comment: Speci men Type: BLOOD SPECIMENOrdering Facility: [facility] Address: [address] [place] [address] Performed By: #### 5 7021-8 ####[facility]ORATORYCLIA [id number] [address] Neutrophils/100 WBC (Bld) 74.1 % Normal [facility] Comment on above: Order Comment: Speci men Type: BLOOD SPECIMENOrdering Facility: [facility] Address: [address] [place] [address] Performed By: #### 5 7021-8 ####[facility]ATORYCLIA [id number] [address] [place] Nucleated RBC (Bld) [#/Vol] 10*3/uL Normal <0.01 [facility] Comment on above: Order Comment: Speci men Type: BLOOD SPECIMENOrdering Facility: [facility] Address: [address] [place] [address] Performed By: #### 5 7021-8 ####[facility]ORATORYCLIA [id number] [address] [place] Nucleated RBC/100 WBC (Bld) [Ratio] 0.0 /100 WBC Normal [facility] Comment on above: Order Comment: Speci men Type: BLOOD SPECIMENOrdering Facility: [facility] Address: [address] [place], [place] [address] Performed By: #### 5 7021-8 ####[facility]ORATORYCLIA [id number] [address] [place] Platelet mean volume (Bld) [Entitic vol] 9.9 fL Normal 9.0-12.7 [facility] Comment on above: Order Comment: Speci men Type: BLOOD SPECIMENOrdering Facility: [facility] Address: [address] [place], [place] [address] Performed By: #### 5 7021-8 ####[facility]ORATORYCLIA [id number] [address] [place] Platelets (Bld) [#/Vol] 391 10*3/uL Normal 150-400 [facility] Comment on above: Order Comment: Speci men Type: BLOOD SPECIMENOrdering Facility: [facility] Address: [address] [place] [address] Performed By: #### 5 7021-8 ####[facility]ORATORYCLIA [id number] [place] [address] [place] RBC (Bld) [#/Vol] 3.36 10*6/uL Low 4.20-6.00 [facility] Comment on above: Order Comment: Speci men Type: BLOOD SPECIMENOrdering Facility: [facility] Address: [address] [place], [place] [address] Performed By: #### 5 7021-8 ####[facility]ORATORYCLIA [id number] [place] [address] [place] WBC (Bld) [#/Vol] 9.00 10*3/uL Normal 3.70-11.00 [facility] Comment on above: Order Comment: Speci men Type: BLOOD SPECIMENOrdering Facility: [facility] Address: [address] [place] [address] Performed By: #### 5 7021-8 ####[facility]ORATORYCLIA [id number] [address] CONSULT PROGon 07-16-2021 CONSULT PROG Normal [facility] CONSULT PROG Normal [facility] Magnesium SerPl-mCncon 07-16 Magnesium [Mass/Vol] 2.3 mg/dL Normal 1.7-2.3 [facility] Comment on above: Order Comment: Speci men Type: BLOOD SPECIMENOrdering Facility: [facility] Address: [address] [place] [address] Performed By: #### 2 777-1, 22040-9, ####[facility]ORATORYCLIA [id number] [address] NURSING PROGon 07-16-2021 NURSING PROG Normal [facility] Phosphate SerPl-mCncon 07-16 Phosphate [Mass/Vol] 3.6 mg/dL Normal 2.7-4.8 [facility] Comment on above: Order Comment: Speci men Type: BLOOD SPECIMENOrdering Facility: [facility] Address: [address] [place] [address] Performed By: #### 2 777-1, 65594-5, ####[facility]ORATORYCLIA [id number] [address] Vancomycin random [Mass/Vol] on 07-16-2021 Vancomycin [Mass/Vol] 16.9 ug/mL Normal 10.0-20.0 [facility] Comment on above: Order Comment: Speci men Type: BLOOD SPECIMENOrdering Facility: [facility] Address: [address] [place] [address] Result Comment: Refe rence ranges and high/low indicator flags are provided as general guidelines only. The treating physician must determine appropriate target levels/dosing based on the specific clinical situation. Performed By: #### 4 091-5 ####[facility]ORATORYCLIA [id number] [address] [place] aPTT PPPon 07-16-2021 aPTT Coag (PPP) [Time] 57.2 s High 23.0-32.[address] [facility] Comment on above: Order Comment: Speci men Type: BLOOD SPECIMENOrdering Facility: [facility] Address: [address] [place] [address] Performed By: #### 1 4979-9 ####[facility]ORATORYCLIA [id number] [place] [id number] [place] ALLIED HEALTHon 07-15-2021 ALLIED HEALTH Normal [facility] Basic metabolic 2000 panelon 07-15-2021 Anion gap [Moles/Vol] 11 mmol/L Normal 9-18 [facility] Comment on above: Order Comment: Speci men Type: BLOOD SPECIMENOrdering Facility: [facility] Address: [address] [place] [address] Performed By: #### 2 4321-2, , 2776-05 ####[facility]ORATORYCLIA [id number] [place] [address] [place] Calcium [Mass/Vol] 8.8 mg/dL Normal 8.5-10.2 [facility] Comment on above: Order Comment: Speci men Type: BLOOD SPECIMENOrdering Facility: [facility] Address: [address] [place] [address] Performed By: #### 2 4321-2, , 2776-05 ####[facility]ORATORYCLIA [id number] [place] [address] [place] Chloride [Moles/Vol] 101 mmol/L Normal 97-105 [facility] Comment on above: Order Comment: Speci men Type: BLOOD SPECIMENOrdering Facility: [facility] Address: [address] [place] [address] Performed By: #### 2 4321-2, , 2776-05 ####[facility]ORATORYCLIA [id number] [place] [address] [place] CO2 [Moles/Vol] 31 mmol/L High 22-30 [facility] Comment on above: Order Comment: Speci men Type: BLOOD SPECIMENOrdering Facility: [facility] Address: [address] [place] [address] Performed By: #### 2 4321-2, , 2776-05 ####[facility] SERVICESCLIA [id number] [place] [address] [place] Creatinine [Mass/Vol] 0.76 mg/dL Normal 0.73-1.22 [facility] Comment on above: Order Comment: Speci men Type: BLOOD SPECIMENOrdering Facility: [facility] Address: [address] [place] [address] Performed By: #### 2 4321-2, , 2776-05 ####[facility] COUNTYIA [id number] [address] [place] ESTIMATED GLOMERULAR FILTRATION RATE 97 mL/min/1.73m??? Normal >=60 [facility] Comment on above: Order Comment: Speccara men Type: BLOOD SPECIMENOrdering Facility: [facility] Address: [address] [place] [address] Result Comment: Luzmaria mated Glomerular Filtration Rate [...] Performed By: #### 2 4321-2, , 2776-05 ####[facility] LABORATORYIA [id number] [place] [address] [place] Glucose [Mass/Vol] 115 mg/dL High 74-99 [facility] Comment on above: Order Comment: Johni francia Type: BLOOD SPECIMENOrdering Facility: [facility] Address: [address] [place] [address] Result Comment: The [place] [employer] (ADA) [...] Performed By: #### 2 4321-2, , 2776-05 ####[facility] LABORATORYCLIA [id number] [place] [address] [place] Potassium [Moles/Vol] 4.0 mmol/L Normal 3.7-5.1 [facility] Comment on above: Order Comment: Shira fledman Type: BLOOD SPECIMENOrdering Facility: [facility] Address: [address] [place] [address] Performed By: #### 2 4320-2, , 2776-05 ####[facility] SERVICESCLIA [id number] [place] [address] [place] Sodium [Moles/Vol] 143 mmol/L Normal 136-144 [facility] Comment on above: Order Comment: Shira feldman Type: BLOOD SPECIMENOrdering Facility: [facility] Address: [address] [place] [address] Performed By: #### 2 4321-2, , 2776-05 ####[facility]ORATORYCLIA [id number] [place] [address] [place] Urea nitrogen [Mass/Vol] 17 mg/dL Normal 9-24 [facility] Comment on above: Order Comment: Shira feldman Type: BLOOD SPECIMENOrdering Facility: [facility] Address: [address] [address] Performed By: #### 2 4321-2, , 2776-05 ####[facility] LABORATORYCLIA [id number] [address] [place] CASE MANAGEMon 07-15-2021 CASE MANAGEM Normal [facility] CBC panel Auto (Bld)on 07-15 Erythrocyte distribution width (RBC) [Ratio] 16.4 % High 11.5-15.0 [facility] Comment on above: Order Comment: Speci men Type: BLOOD SPECIMENOrdering Facility: [facility] Address: [address] [place] [address] Performed By: #### 5 8410-2 ####[facility] LABORATORYCLIA [id number] [address] Hematocrit (Bld) [Volume fraction] 30.3 % Low 39.0-51.0 [facility] Comment on above: Order Comment: Speci men Type: BLOOD SPECIMENOrdering Facility: [facility] Address: [address] [place] [address] Performed By: #### 5 8410-2 ####[facility]ORATORYCLIA [id number] [address] Hemoglobin (Bld) [Mass/Vol] 9.2 g/dL Low 13.0-17.0 [facility] Comment on above: Order Comment: Speci men Type: BLOOD SPECIMENOrdering Facility: [facility] Address: [address] [place] [address] Performed By: #### 5 8410-2 ####[facility]ORATORYCLIA [id number] [address] [place] MCH (RBC) [Entitic mass] 28.3 pg Normal 26.0-34.0 [facility] Comment on above: Order Comment: Speci men Type: BLOOD SPECIMENOrdering Facility: [facility] Address: [address] [place] [address] Performed By: #### 5 8410-2 ####[facility] LABORATORYCLIA [id number] [address] [place] MCHC (RBC) [Mass/Vol] 30.4 g/dL Low 30.5-36.0 [facility] Comment on above: Order Comment: Speci men Type: BLOOD SPECIMENOrdering Facility: [facility] Address: [address] [place], [place] [address] Performed By: #### 5 8410-2 ####[facility]ORATORYCLIA [id number] [address] [place] MCV (RBC) [Entitic vol] 93.2 fL Normal 80.0-100.0 [facility] Comment on above: Order Comment: Speci men Type: BLOOD SPECIMENOrdering Facility: [facility] Address: [address] [place], [place] [address] Performed By: #### 5 8410-2 ####[facility]ORATORYCLIA [id number] [address] [place] Nucleated RBC (Bld) [#/Vol] 10*3/uL Normal <0.01 [facility] Comment on above: Order Comment: Speci men Type: BLOOD SPECIMENOrdering Facility: [facility] Address: [address] [place] [address] Performed By: #### 5 8410-2 ####[facility] LABORATORYCLIA [id number] [address] [place] Platelet mean volume (Bld) [Entitic vol] 9.9 fL Normal 9.0-12.7 [facility] Comment on above: Order Comment: Speci men Type: BLOOD SPECIMENOrdering Facility: [facility] Address: [address] [place], [place] [address] Performed By: #### 5 8410-2 ####[facility] LABORATORYCLIA [id number] [address] [place] Platelets (Bld) [#/Vol] 381 10*3/uL Normal 150-400 [facility] Comment on above: Order Comment: Speci men Type: BLOOD SPECIMENOrdering Facility: [facility] Address: [address] [place], [place] [address] Performed By: #### 5 8410-2 ####[facility] LABORATORYCLIA [id number] [place] [address] [place] RBC (Bld) [#/Vol] 3.25 10*6/uL Low 4.20-6.00 [facility] Comment on above: Order Comment: Speci men Type: BLOOD SPECIMENOrdering Facility: [facility] Address: [address] [place] [address] Performed By: #### 5 8410-2 ####[facility] LABORATORYCLIA [id number] [address] [place] WBC (Bld) [#/Vol] 8.80 10*3/uL Normal 3.70-11.00 [facility] Comment on above: Order Comment: Speci men Type: BLOOD SPECIMENOrdering Facility: [facility] Address: [address] [place] [address] Performed By: #### 5 8410-2 ####[facility] LABORATORYCLIA [id number] [address] [place] Magnesium SerPl-mCncon 07-15 Magnesium [Mass/Vol] 2.2 mg/dL Normal 1.7-2.3 [facility] Comment on above: Order Comment: Speci men Type: BLOOD SPECIMENOrdering Facility: [facility] Address: [address] [place] [address] Performed By: #### 2 4321-2, 57416-5, 2777-1 ####[facility]ORATORYCLIA [id number] [place] [address] [place] NURSING PROGon 07-15-2021 NURSING PROG Normal [facility] NURSING PROG Normal [facility] NURSING PROG Normal [facility] NUTRITIONon 07-15-2021 NUTRITION Normal [facility] Phosphate SerPl-mCncon 07-15 Phosphate [Mass/Vol] 3.4 mg/dL Normal 2.7-4.8 [facility] Comment on above: Order Comment: Speci men Type: BLOOD SPECIMENOrdering Facility: [facility] Address: [address] [place] [address] Performed By: #### 2 4321-2, [id number], 2777-1 ####[facility] LABORATORYCLIA [id number] [place] [address] [facility] THERAPY NTon 07-15-2021 THERAPY NT Normal [facility] US DVT UPPER LTon 07-15-2021 US DVT UPPER LT Normal [facility] XR CHEST 1V FRONTALon 2021 XR CHEST 1V FRONTAL Normal [facility] aPTT PPPon 07-15-2021 aPTT Coag (PPP) [Time] 59.9 s High 23.0-32.[address] [facility] Comment on above: Order Comment: Speci men Type: BLOOD SPECIMENOrdering Facility: [facility] Address: [address] [place] [address] Performed By: #### 1 4979-9 ####[facility] LABORATORYCLIA [id number] [place] [address] [place] Basic metabolic 2000 panelon 07-14-2021 Anion gap [Moles/Vol] 9 mmol/L Normal 9-18 [facility] Comment on above: Order Comment: Speci men Type: BLOOD SPECIMENOrdering Facility: [facility] Address: [address] [place] [address] Performed By: #### 1 9123-9, 2777-1, 29816-9 ####[facility] LABORATORYCLIA [id number] [place] [address] [place] Calcium [Mass/Vol] 8.5 mg/dL Normal 8.5-10.2 [facility] Comment on above: Order Comment: Speci men Type: BLOOD SPECIMENOrdering Facility: [facility] Address: [address] [place] [address] Performed By: #### 1 9123-9, 2777-1, 69747-7 ####[facility] LABORATORYCLIA [id number] [place] [address] [place] Chloride [Moles/Vol] 99 mmol/L Normal 97-105 [facility] Comment on above: Order Comment: Speci men Type: BLOOD SPECIMENOrdering Facility: [facility] Address: [address] [place] [address] Performed By: #### 1 9123-9, 2777, ####[facility] LABORATORYCLIA [id number] [address] CO2 [Moles/Vol] 31 mmol/L High 22-30 [facility] Comment on above: Order Comment: Speci men Type: BLOOD SPECIMENOrdering Facility: [facility] Address: [address] [place] [address] Performed By: #### 1 9123-9, 27711-04, ####[facility] LABORATORYCLIA [id number] [address] Creatinine [Mass/Vol] 0.74 mg/dL Normal 0.73-1.22 [facility] Comment on above: Order Comment: Speci men Type: BLOOD SPECIMENOrdering Facility: [facility] Address: [address] [place] [address] Performed By: #### 1 9123-9, 2776-05, ####[facility] SERVICESCLIA [id number] [address] ESTIMATED GLOMERULAR FILTRATION RATE 98 mL/min/1.73m??? Normal >=60 [facility] Comment on above: Order Comment: Speci men Type: BLOOD SPECIMENOrdering Facility: [facility] Address: [address] [place] [address] Result Comment: Luzmaria mated Glomerular Filtration Rate [...] GFR. Performed By: #### 1 9123-9, 27711-04, 30450-9 ####[facility] LABORATORYCLIA [id number] [place] [address] [place] Glucose [Mass/Vol] 117 mg/dL High 74-99 [facility] Comment on above: Order Comment: Speci men Type: BLOOD SPECIMENOrdering Facility: [facility] Address: [address] [place] [address] Result Comment: The [employer] (ADA) [...] 1). Performed By: #### 1 9123-9, 2777, 48712-2 ####[facility] LABORATORYCLIA [id number] [place] [address] [place] Potassium [Moles/Vol] 3.7 mmol/L Normal 3.7-5.1 [facility] Comment on above: Order Comment: Speci men Type: BLOOD SPECIMENOrdering Facility: [facility] Address: [address] [place], [place] [address] Performed By: #### 1 9123-9, 27711-04, 14144-1 ####[facility] LABORATORYCLIA [id number] [place] [address] [place] Sodium [Moles/Vol] 139 mmol/L Normal 136-144 [facility] Comment on above: Order Comment: Speci men Type: BLOOD SPECIMENOrdering Facility: [facility] Address: [address] [place] [address] Performed By: #### 1 9123-9, 27711-04, 98351-5 ####[facility] LABORATORYCLIA [id number] [address] [place] Urea nitrogen [Mass/Vol] 16 mg/dL Normal 9-24 [facility] Comment on above: Order Comment: Speci men Type: BLOOD SPECIMENOrdering Facility: [facility] Address: [address] [place] [address] Performed By: #### 1 9123-9, 2777-1, 00200-1 ####[facility] LABORATORYCLIA [id number] [address] CBC panel Auto (Bld)on 07-14 Erythrocyte distribution width (RBC) [Ratio] 16.2 % High 11.5-15.0 [facility] Comment on above: Order Comment: Speci men Type: BLOOD SPECIMENOrdering Facility: [facility] Address: [address] [place] [address] Performed By: #### 5 8410-2 ####[facility] LABORATORYCLIA [id number] [address] STATES OF [facility] Hematocrit (Bld) [Volume fraction] 29.7 % Low 39.0-51.0 [facility] Comment on above: Order Comment: Speci men Type: BLOOD SPECIMENOrdering Facility: [facility] Address: [address] [place] [address] Performed By: #### 5 8410-2 ####[facility] LABORATORYCLIA [id number] [address] [place] Hemoglobin (Bld) [Mass/Vol] 8.8 g/dL Low 13.0-17.0 [facility] Comment on above: Order Comment: Speci men Type: BLOOD SPECIMENOrdering Facility: [facility] Address: [address] [place] [address] Performed By: #### 5 8410-2 ####[facility] LABORATORYCLIA [id number] [address] [place] MCH (RBC) [Entitic mass] 27.5 pg Normal 26.0-34.0 [facility] Comment on above: Order Comment: Speci men Type: BLOOD SPECIMENOrdering Facility: [facility] Address: [address] [place] [address] Performed By: #### 5 8410-2 ####[facility] LABORATORYCLIA [id number] [address] MCHC (RBC) [Mass/Vol] 29.6 g/dL Low 30.5-36.0 [facility] Comment on above: Order Comment: Speci men Type: BLOOD SPECIMENOrdering Facility: [facility] Address: [address] [place] [address] Performed By: #### 5 8410-2 ####[facility] LABORATORYCLIA [id number] [address] [place] MCV (RBC) [Entitic vol] 92.8 fL Normal 80.0-100.0 [facility] Comment on above: Order Comment: Speci men Type: BLOOD SPECIMENOrdering Facility: [facility] Address: [address] [place] [address] Performed By: #### 5 8410-2 ####[facility]ORATORYCLIA [id number] [address] Nucleated RBC (Bld) [#/Vol] 10*3/uL Normal <0.01 [facility] Comment on above: Order Comment: Speci men Type: BLOOD SPECIMENOrdering Facility: [facility] Address: [address] [place] [address] Performed By: #### 5 8410-2 ####[facility] LABORATORYCLIA [id number] [address] Platelet mean volume (Bld) [Entitic vol] 9.6 fL Normal 9.0-12.7 [facility] Comment on above: Order Comment: Speci men Type: BLOOD SPECIMENOrdering Facility: [facility] Address: [address] [place] [address] Performed By: #### 5 8410-2 ####[facility] LABORATORYCLIA [id number] [place] [address] [place] Platelets (Bld) [#/Vol] 354 10*3/uL Normal 150-400 [facility] Comment on above: Order Comment: Speci men Type: BLOOD SPECIMENOrdering Facility: [facility] Address: [address] [place] [address] Performed By: #### 5 8410-2 ####[facility]ORATORYCLIA [id number] [place] [address] [place] RBC (Bld) [#/Vol] 3.20 10*6/uL Low 4.20-6.00 [facility] Comment on above: Order Comment: Speci men Type: BLOOD SPECIMENOrdering Facility: [facility] Address: [address] [place] [address] Performed By: #### 5 8410-2 ####[facility] LABORATORYCLIA [id number] [address] STATES OF [facility] WBC (Bld) [#/Vol] 9.41 10*3/uL Normal 3.70-11.00 [facility] Comment on above: Order Comment: Speci men Type: BLOOD SPECIMENOrdering Facility: [facility] Address: [address] [place] [address] Performed By: #### 5 8410-2 ####[facility] LABORATORYCLIA [id number] [address] [place] CONSULT PROGon 07-14-2021 CONSULT PROG Normal [facility] Magnesium SerPl-mCncon 07-14 Magnesium [Mass/Vol] 2.2 mg/dL Normal 1.7-2.3 [facility] Comment on above: Order Comment: Speci men Type: BLOOD SPECIMENOrdering Facility: [facility] Address: [address] [place] [address] Performed By: #### 1 9123-9, 2777-1, 30086-5 ####[facility]ORATORYCLIA [id number] [address] [place] NURSING PROGon 07-14-2021 NURSING PROG Normal [facility] Phosphate SerPl-mCncon 07-14 Phosphate [Mass/Vol] 3.6 mg/dL Normal 2.7-4.8 [facility] Comment on above: Order Comment: Speci men Type: BLOOD SPECIMENOrdering Facility: [facility] Address: [address] [place] [address] Performed By: #### 1 9123-9, 2777-1, 71361-4 ####[facility]ORATORYCLIA [id number] [address] [place] aPTT PPPon 07-14-2021 aPTT Coag (PPP) [Time] 62.9 s High 23.0-32.[address] [facility] Comment on above: Order Comment: Speci men Type: BLOOD SPECIMENOrdering Facility: [facility] Address: [address] [place] [address] Performed By: #### 1 4979-9 ####[facility]ORATORYCLIA [id number] [address] [place] aPTT Coag (PPP) [Time] 55.2 s High 23.0-32.[address] [facility] Comment on above: Order Comment: Speci men Type: BLOOD SPECIMENOrdering Facility: [facility] Address: [address] [place] [address] Performed By: #### 1 4979-9 ####[facility]ORATORYCLIA [id number] [place] [address] [place] Basic metabolic 2000 panelon 07-13-2021 Anion gap [Moles/Vol] 10 mmol/L Normal 9-18 [facility] Comment on above: Order Comment: Speci men Type: BLOOD SPECIMENOrdering Facility: [facility] Address: [address] [place] [address] Performed By: #### 1 9123-9, 2777-1, 45216-1 ####[facility]ORATORYCLIA [id number] [address] STATES OF [facility] Calcium [Mass/Vol] 8.5 mg/dL Normal 8.5-10.2 [facility] Comment on above: Order Comment: Speci men Type: BLOOD SPECIMENOrdering Facility: [facility] Address: [address] [place] [address] Performed By: #### 1 9123-9, 2777-1, 14817-5 ####[facility] LABORATORYCLIA [id number] [place] [address] [place] Chloride [Moles/Vol] 98 mmol/L Normal 97-105 [facility] Comment on above: Order Comment: Speci men Type: BLOOD SPECIMENOrdering Facility: [facility] Address: [address] [place] [address] Performed By: #### 1 9123-9, 27711-04, 64397-7 ####[facility]ORATORYCLIA [id number] [address] STATES OF [facility] CO2 [Moles/Vol] 32 mmol/L High 22-30 [facility] Comment on above: Order Comment: Speci men Type: BLOOD SPECIMENOrdering Facility: [facility] Address: [address] [place] [address] Performed By: #### 1 9123-9, 27711-04, 44005-7 ####[facility]ORATORYCLIA [id number] [address] [place] Creatinine [Mass/Vol] 0.75 mg/dL Normal 0.73-1.22 [facility] Comment on above: Order Comment: Speci men Type: BLOOD SPECIMENOrdering Facility: [facility] Address: [address] [place] [address] Performed By: #### 1 9123-9, 2777, 67783-2 ####[facility]ORATORYCLIA [id number] [address] [place] ESTIMATED GLOMERULAR FILTRATION RATE 98 mL/min/1.73m??? Normal >=60 [facility] Comment on above: Order Comment: Speci men Type: BLOOD SPECIMENOrdering Facility: [facility] Address: [address] [id number] Result Comment: Luzmaria mated Glomerular Filtration Rate [...] GFR. Performed By: #### 1 9123-9, 2777-1, 71955-1 ####[facility] LABORATORYCLIA [id number] [place] [address] [place] Glucose [Mass/Vol] 118 mg/dL High 74-99 [facility] Comment on above: Order Comment: Shira feldman Type: BLOOD SPECIMENOrdering Facility: [facility] Address: [address] [place] [address] Result Comment: The [employer] (ADA) [...] 1). Performed By: #### 1 9123-9, 2777-1, 07793-7 ####[facility]ORATORYCLIA [id number] [place] [address] [place] Potassium [Moles/Vol] 3.6 mmol/L Low 3.7-5.1 [facility] Comment on above: Order Comment: Shira feldman Type: BLOOD SPECIMENOrdering Facility: [facility] Address: [address] [id number] Performed By: #### 1 9123-9, 2777-1, 03154-8 ####[facility]ORATORYCLIA [id number] [address] Sodium [Moles/Vol] 140 mmol/L Normal 136-144 [facility] Comment on above: Order Comment: Speci men Type: BLOOD SPECIMENOrdering Facility: [facility] Address: [address] [place] [address] Performed By: #### 1 9123-9, 2777-, 17415-8 ####[facility]ORATORYCLIA [id number] [address] STATES [facility] Urea nitrogen [Mass/Vol] 15 mg/dL Normal 9-24 [facility] Comment on above: Order Comment: Speci men Type: BLOOD SPECIMENOrdering Facility: [facility] Address: [address] [place] [address] Performed By: #### 1 9123-9, 2777, 12659-6 ####[facility]ORATORYCLIA [id number] [address] CASE MANAGEMon 07-13-2021 CASE MANAGEM Normal [facility] CBC panel Auto (Bld)on 07-13 Erythrocyte distribution width (RBC) [Ratio] 16.2 % High 11.5-15.0 [facility] Comment on above: Order Comment: Speci men Type: BLOOD SPECIMENOrdering Facility: [facility] Address: [address] [place] [address] Performed By: #### 5 8410-2 ####[facility] LABORATORYCLIA [id number] [address] Hematocrit (Bld) [Volume fraction] 29.5 % Low 39.0-51.0 [facility] Comment on above: Order Comment: Speci men Type: BLOOD SPECIMENOrdering Facility: [facility] Address: [address] [place] [address] Performed By: #### 5 8410-2 ####[facility]ORATORYCLIA [id number] [address] STATES OF [facility] Hemoglobin (Bld) [Mass/Vol] 8.9 g/dL Low 13.0-17.0 [facility] Comment on above: Order Comment: Speci men Type: BLOOD SPECIMENOrdering Facility: [facility] Address: [address] [place] [address] Performed By: #### 5 8410-2 ####[facility]ORATORYCLIA [id number] [address] MCH (RBC) [Entitic mass] 27.8 pg Normal 26.0-34.0 [facility] Comment on above: Order Comment: Speci men Type: BLOOD SPECIMENOrdering Facility: [facility] Address: [address] [place] [address] Performed By: #### 5 8410-2 ####[facility] LABORATORYCLIA [id number] [address] MCHC (RBC) [Mass/Vol] 30.2 g/dL Low 30.5-36.0 [facility] Comment on above: Order Comment: Speci men Type: BLOOD SPECIMENOrdering Facility: [facility] Address: [address] [place] [address] Performed By: #### 5 8410-2 ####[facility]ORATORYCLIA [id number] [address] MCV (RBC) [Entitic vol] 92.2 fL Normal 80.0-100.0 [facility] Comment on above: Order Comment: Speci men Type: BLOOD SPECIMENOrdering Facility: [facility] Address: [address] [place] [address] Performed By: #### 5 8410-2 ####[facility]ORATORYCLIA [id number] [address] Nucleated RBC (Bld) [#/Vol] 10*3/uL Normal <0.01 [facility] Comment on above: Order Comment: Speci men Type: BLOOD SPECIMENOrdering Facility: [facility] Address: [address] [place] [address] Performed By: #### 5 8410-2 ####[facility]ORATORYCLIA [id number] [address] [place] Platelet mean volume (Bld) [Entitic vol] 9.8 fL Normal 9.0-12.7 [facility] Comment on above: Order Comment: Speci men Type: BLOOD SPECIMENOrdering Facility: [facility] Address: [address] [place] [address] Performed By: #### 5 8410-2 ####[facility]ORATORYCLIA [id number] [address] [place] Platelets (Bld) [#/Vol] 356 10*3/uL Normal 150-400 [facility] Comment on above: Order Comment: Speci men Type: BLOOD SPECIMENOrdering Facility: [facility] Address: [address] [place] [address] Performed By: #### 5 8410-2 ####[facility]ORATORYCLIA [id number] [place] [address] [place] RBC (Bld) [#/Vol] 3.20 10*6/uL Low 4.20-6.00 [facility] Comment on above: Order Comment: Speci men Type: BLOOD SPECIMENOrdering Facility: [facility] Address: [address] [place], [place] [address] Performed By: #### 5 8410-2 ####[facility]ORATORYCLIA [id number] [address] [place] WBC (Bld) [#/Vol] 9.20 10*3/uL Normal 3.70-11.00 [facility] Comment on above: Order Comment: Speci men Type: BLOOD SPECIMENOrdering Facility: [facility] Address: [address] [place] [address] Performed By: #### 5 8410-2 ####[facility] LABORATORYCLIA [id number] [address] [place] CONSULT PROGon 07-13-2021 CONSULT PROG Normal [facility] CONSULT PROG Normal [facility] CONSULT PROG Normal [facility] Magnesium SerPl-mCncon 07-13 Magnesium [Mass/Vol] 2.1 mg/dL Normal 1.7-2.3 [facility] Comment on above: Order Comment: Speci men Type: BLOOD SPECIMENOrdering Facility: [facility] Address: [address] [place] [address] Performed By: #### 1 9123-9, 2777-1, 62614-0 ####[facility]ORATORYCLIA [id number] [address] Phosphate SerPl-mCncon 07-13 Phosphate [Mass/Vol] 3.7 mg/dL Normal 2.7-4.8 [facility] Comment on above: Order Comment: Speci men Type: BLOOD SPECIMENOrdering Facility: [facility] Address: [address] [place] [address] Performed By: #### 1 9123-9, 2777-1, 24253-9 ####[facility] SERVICESCLIA [id number] [address] THERAPY NTon 07-13-2021 THERAPY NT Normal [facility] THERAPY NT Normal [facility] Vancomycin random [Mass/Vol] on 07-13-2021 Vancomycin [Mass/Vol] 31.7 ug/mL High 10.0-20.0 [facility] Comment on above: Order Comment: Speci men Type: BLOOD SPECIMENOrdering Facility: [facility] Address: [address] [place] [address] Result Comment: Refe rence ranges and high/low indicator flags are provided as general guidelines only. The treating physician must determine appropriate target levels/dosing based on the specific clinical situation. Performed By: #### 4 091-5 ####[facility] LABORATORYCLIA [id number] [address] [place] aPTT PPPon 07-13-2021 aPTT Coag (PPP) [Time] 47.3 s High 23.0-32.[address] [facility] Comment on above: Order Comment: Speci men Type: BLOOD SPECIMENOrdering Facility: [facility] Address: [address] [place] [address] Performed By: #### 1 4979-9 ####[facility] LABORATORYCLIA [id number] [address] aPTT Coag (PPP) [Time] 51.2 s High 23.0-32.[address] [facility] Comment on above: Order Comment: Speci men Type: BLOOD SPECIMENOrdering Facility: [facility] Address: [address] [place] [address] Performed By: #### 1 4979-9 ####[facility]ORATORYCLIA [id number] [address] aPTT Coag (PPP) [Time] 47.5 s High 23.0-32.[address] [facility] Comment on above: Order Comment: Speci men Type: BLOOD SPECIMENOrdering Facility: [facility] Address: [address] [place] [address] Performed By: #### 1 4979-9 ####[facility] LABORATORYCLIA [id number] [address] STATES OF [facility] Basic metabolic 2000 panelon 07-12-2021 Anion gap [Moles/Vol] 7 mmol/L Low 9-18 [facility] Comment on above: Order Comment: Speci men Type: BLOOD SPECIMENOrdering Facility: [facility] Address: [address] [place] [address] Performed By: #### 1 9123-9, 2777-1, 10084-5 ####[facility]ORATORYCLIA [id number] [address] STATES OF [facility] Calcium [Mass/Vol] 8.3 mg/dL Low 8.5-10.2 [facility] Comment on above: Order Comment: Speci men Type: BLOOD SPECIMENOrdering Facility: [facility] Address: [address] [place] [address] Performed By: #### 1 9123-9, 27711-04, 13673-9 ####[facility] LABORATORYCLIA [id number] [place] [address] [place] Chloride [Moles/Vol] 101 mmol/L Normal 97-105 [facility] Comment on above: Order Comment: Speci men Type: BLOOD SPECIMENOrdering Facility: [facility] Address: [address] [place] [address] Performed By: #### 1 9123-9, 2776-05, 74337-6 ####[facility] LABORATORYCLIA [id number] [address] [place] CO2 [Moles/Vol] 32 mmol/L High 22-30 [facility] Comment on above: Order Comment: Speci men Type: BLOOD SPECIMENOrdering Facility: [facility] Address: [address] [place] [address] Performed By: #### 1 9123-9, 2776-05, 07818-2 ####[facility]ORATORYCLIA [id number] [address] [place] Creatinine [Mass/Vol] 0.70 mg/dL Low 0.73-1.22 [facility] Comment on above: Order Comment: Speci men Type: BLOOD SPECIMENOrdering Facility: [facility] Address: [address] [place] [address] Performed By: #### 1 9123-9, 27711-04, 25940-0 ####[facility] LABORATORYCLIA [id number] [address] [place] ESTIMATED GLOMERULAR FILTRATION RATE 100 mL/min/1.73m??? Normal >=60 [facility] Comment on above: Order Comment: Speci men Type: BLOOD SPECIMENOrdering Facility: [facility] Address: [address] [place] [address] Result Comment: Luzmaria mated Glomerular Filtration Rate [...] GFR. Performed By: #### 1 9123-9, 2777-1, 62039-1 ####[facility] LABORATORYCLIA [id number] [place] [address] [place] Glucose [Mass/Vol] 104 mg/dL High 74-99 [facility] Comment on above: Order Comment: Shira feldman Type: BLOOD SPECIMENOrdering Facility: [facility] Address: [address] [place] [address] Result Comment: The [place] [employer] (ADA) [...] 1). Performed By: #### 1 9123-9, 2777-, 30492-9 ####[facility] LABORATORYIA [id number] [place] [address] [place] Potassium [Moles/Vol] 3.7 mmol/L Normal 3.7-5.1 [facility] Comment on above: Order Comment: Shira feldman Type: BLOOD SPECIMENOrdering Facility: [facility] Address: [address] [place] [address] Performed By: #### 1 9123-9, 2777-, 81110-5 ####[facility] LABORATORYCLIA [id number] [address] STATES [facility] Sodium [Moles/Vol] 140 mmol/L Normal 136-144 [facility] Comment on above: Order Comment: Speci men Type: BLOOD SPECIMENOrdering Facility: [facility] Address: [address] [place] [address] Performed By: #### 1 9123-9, 2777-1, 13973-3 ####[facility] LABORATORYCLIA [id number] [address] STATES OF [facility] Urea nitrogen [Mass/Vol] 12 mg/dL Normal 9-24 [facility] Comment on above: Order Comment: Speci men Type: BLOOD SPECIMENOrdering Facility: [facility] Address: [address] [place] [address] Performed By: #### 1 9123-9, 2777-1, 87108-9 ####[facility] LABORATORYCLIA [id number] [address] CBC panel Auto (Bld)on 07-12 Erythrocyte distribution width (RBC) [Ratio] 16.1 % High 11.5-15.0 [facility] Comment on above: Order Comment: Speci men Type: BLOOD SPECIMENOrdering Facility: [facility] Address: [address] [place] [place] [address] Performed By: #### 5 8410-2 ####[facility] LABORATORYCLIA [id number] [address] [place] Hematocrit (Bld) [Volume fraction] 28.2 % Low 39.0-51.0 [facility] Comment on above: Order Comment: Speci men Type: BLOOD SPECIMENOrdering Facility: [facility] Address: [address] [place] [address] Performed By: #### 5 8410-2 ####[facility] LABORATORYCLIA [id number] [address] [place] Hemoglobin (Bld) [Mass/Vol] 8.5 g/dL Low 13.0-17.0 [facility] Comment on above: Order Comment: Speci men Type: BLOOD SPECIMENOrdering Facility: [facility] Address: [address] [place] [address] Performed By: #### 5 8410-2 ####[facility] LABORATORYCLIA [id number] [address] MCH (RBC) [Entitic mass] 26.8 pg Normal 26.0-34.0 [facility] Comment on above: Order Comment: Speci men Type: BLOOD SPECIMENOrdering Facility: [facility] Address: [address] [place] [address] Performed By: #### 5 8410-2 ####[facility] LABORATORYCLIA [id number] [address] MCHC (RBC) [Mass/Vol] 30.1 g/dL Low 30.5-36.0 [facility] Comment on above: Order Comment: Speci men Type: BLOOD SPECIMENOrdering Facility: [facility] Address: [address] [place] [address] Performed By: #### 5 8410-2 ####[facility] LABORATORYCLIA [id number] [address] MCV (RBC) [Entitic vol] 89.0 fL Normal 80.0-100.0 [facility] Comment on above: Order Comment: Speci men Type: BLOOD SPECIMENOrdering Facility: [facility] Address: [address] [place] [address] Performed By: #### 5 8410-2 ####[facility] LABORATORYCLIA [id number] [address] Nucleated RBC (Bld) [#/Vol] 10*3/uL Normal <0.01 [facility] Comment on above: Order Comment: Speci men Type: BLOOD SPECIMENOrdering Facility: [facility] Address: [address] [place] [address] Performed By: #### 5 8410-2 ####[facility] LABORATORYCLIA [id number] [address] [place] Platelet mean volume (Bld) [Entitic vol] 9.6 fL Normal 9.0-12.7 [facility] Comment on above: Order Comment: Speci men Type: BLOOD SPECIMENOrdering Facility: [facility] Address: [address] [place] [address] Performed By: #### 5 8410-2 ####[facility] LABORATORYCLIA [id number] [place] [address] [place] Platelets (Bld) [#/Vol] 340 10*3/uL Normal 150-400 [facility] Comment on above: Order Comment: Speci men Type: BLOOD SPECIMENOrdering Facility: [facility] Address: [address] [place] [address] Performed By: #### 5 8410-2 ####[facility] LABORATORYCLIA [id number] [place] [address] [place] RBC (Bld) [#/Vol] 3.17 10*6/uL Low 4.20-6.00 [facility] Comment on above: Order Comment: Speci men Type: BLOOD SPECIMENOrdering Facility: [facility] Address: [address] [place] [address] Performed By: #### 5 8410-2 ####[facility] LABORATORYCLIA [id number] [place] [address] [place] WBC (Bld) [#/Vol] 8.66 10*3/uL Normal 3.70-11.00 [facility] Comment on above: Order Comment: Speci men Type: BLOOD SPECIMENOrdering Facility: [facility] Address: [address] [place] [address] Performed By: #### 5 8410-2 ####[facility] LABORATORYCLIA [id number] [address] [place] CONSULTon 07-12-2021 CONSULT Normal [facility] CONSULT PROGon 07-12-2021 CONSULT PROG Normal [facility] Magnesium SerPl-mCncon 07-12 Magnesium [Mass/Vol] 2.1 mg/dL Normal 1.7-2.3 [facility] Comment on above: Order Comment: Speci men Type: BLOOD SPECIMENOrdering Facility: [facility] Address: [address] [place] [address] Performed By: #### 1 9123-9, 2777-1, 01042-6 ####[facility] LABORATORYCLIA [id number] [address] OF [facility] NURSING PROGon 07-12-2021 NURSING PROG Normal [facility] Phosphate SerPl-mCncon 07-12 Phosphate [Mass/Vol] 3.1 mg/dL Normal 2.7-4.8 [facility] Comment on above: Order Comment: Speci men Type: BLOOD SPECIMENOrdering Facility: [facility] Address: [address] [place] [address] Performed By: #### 1 9123-9, 2777-1, 03499-3 ####[facility] LABORATORYCLIA [id number] [address] OF [facility] THERAPY NTon 07-12-2021 THERAPY NT Normal [facility] aPTT PPPon 07-12-2021 aPTT Coag (PPP) [Time] 49.5 s High 23.0-32.[address] [facility] Comment on above: Order Comment: Speci men Type: BLOOD SPECIMENOrdering Facility: [facility] Address: [address] [place] [address] Performed By: #### 1 4979-9 ####[facility] LABORATORYCLIA [id number] [address] aPTT Coag (PPP) [Time] 68.0 s High 23.0-32.[address] [facility] Comment on above: Order Comment: Speci men Type: BLOOD SPECIMENOrdering Facility: [facility] Address: [address] [place] [address] Performed By: #### 1 4979-9 ####[facility] LABORATORYCLIA [id number] [place] [address] [place] aPTT Coag (PPP) [Time] 80.0 s High 23.0-32.[address] [facility] Comment on above: Order Comment: Speci men Type: BLOOD SPECIMENOrdering Facility: [facility] Address: [address] [place] [address] Performed By: #### 1 4979-9 ####[facility] LABORATORYCLIA [id number] [address] [place] CASE MGT INIT ASSESon 2021 CASE MGT INIT ASSES Normal [facility] CBC panel Auto (Bld)on 07-11 Erythrocyte distribution width (RBC) [Ratio] 16.3 % High 11.5-15.0 [facility] Comment on above: Order Comment: Speci men Type: BLOOD SPECIMENOrdering Facility: [facility] Address: [address] [place] [address] Performed By: #### 5 8410-2 ####[facility] SERVICESCLIA [id number] [address] [place] [facility] Hematocrit (Bld) [Volume fraction] 28.3 % Low 39.0-51.0 [facility] Comment on above: Order Comment: Speci men Type: BLOOD SPECIMENOrdering Facility: [facility] Address: [address] [place] [address] Performed By: #### 5 8410-2 ####[facility] LABORATORYCLIA [id number] [address] [place] Hemoglobin (Bld) [Mass/Vol] 8.8 g/dL Low 13.0-17.0 [facility] Comment on above: Order Comment: Speci men Type: BLOOD SPECIMENOrdering Facility: [facility] Address: [address] [place] [address] Performed By: #### 5 8410-2 ####[facility] LABORATORYCLIA [id number] [address] [place] MCH (RBC) [Entitic mass] 27.4 pg Normal 26.0-34.0 [facility] Comment on above: Order Comment: Speci men Type: BLOOD SPECIMENOrdering Facility: [facility] Address: [address] [place] [address] Performed By: #### 5 8410-2 ####[facility] LABORATORYCLIA [id number] [place] [address] [place] MCHC (RBC) [Mass/Vol] 31.1 g/dL Normal 30.5-36.0 [facility] Comment on above: Order Comment: Speci men Type: BLOOD SPECIMENOrdering Facility: [facility] Address: [address] [place] [address] Performed By: #### 5 8410-2 ####[facility] LABORATORYCLIA [id number] [address] [place] MCV (RBC) [Entitic vol] 88.2 fL Normal 80.0-100.0 [facility] Comment on above: Order Comment: Speci men Type: BLOOD SPECIMENOrdering Facility: [facility] Address: [address] [place] [address] Performed By: #### 5 8410-2 ####[facility]ORATORYCLIA [id number] [address] [place] Nucleated RBC (Bld) [#/Vol] 10*3/uL Normal <0.01 [facility] Comment on above: Order Comment: Speci men Type: BLOOD SPECIMENOrdering Facility: [facility] Address: [address] [place] [address] Performed By: #### 5 8410-2 ####[facility] LABORATORYCLIA [id number] [address] [place] Platelet mean volume (Bld) [Entitic vol] 9.7 fL Normal 9.0-12.7 [facility] Comment on above: Order Comment: Speci men Type: BLOOD SPECIMENOrdering Facility: [facility] Address: [address] [place] [address] Performed By: #### 5 8410-2 ####[facility] LABORATORYCLIA [id number] [address] Platelets (Bld) [#/Vol] 315 10*3/uL Normal 150-400 [facility] Comment on above: Order Comment: Speci men Type: BLOOD SPECIMENOrdering Facility: [facility] Address: [address] [place] [address] Performed By: #### 5 8410-2 ####[facility] LABORATORYCLIA [id number] [address] STATES OF [facility] RBC (Bld) [#/Vol] 3.21 10*6/uL Low 4.20-6.00 [facility] Comment on above: Order Comment: Speci men Type: BLOOD SPECIMENOrdering Facility: [facility] Address: [address] [place] [address] Performed By: #### 5 8410-2 ####[facility] LABORATORYCLIA [id number] [address] WBC (Bld) [#/Vol] 9.18 10*3/uL Normal 3.70-11.00 [facility] Comment on above: Order Comment: Speci men Type: BLOOD SPECIMENOrdering Facility: [facility] Address: [address] [place] [address] Performed By: #### 5 8410-2 ####[facility] LABORATORYCLIA [id number] [address] CONSULT PROGon 07-11-2021 CONSULT PROG Normal [facility] CT BRAIN WO IVCONon 07-12-19 CT BRAIN WO IVCON Normal [facility] Magnesium SerPl-mCncon 07-11 Magnesium [Mass/Vol] 2.1 mg/dL Normal 1.7-2.3 [facility] Comment on above: Order Comment: Speci men Type: BLOOD SPECIMENOrdering Facility: [facility] Address: [address] [place] [address] Performed By: #### 1 9123-9, 2777-1 ####[facility] LABORATORYCLIA [id number] [address] NURSING PROGon 07-11-2021 NURSING PROG Normal [facility] NURSING PROG Normal [facility] Phosphate SerPl-mCncon 07-11 Phosphate [Mass/Vol] 3.4 mg/dL Normal 2.7-4.8 [facility] Comment on above: Order Comment: Speci men Type: BLOOD SPECIMENOrdering Facility: [facility] Address: [address] [place] [address] Performed By: #### 1 9123-9, 2777-1 ####[facility] LABORATORYCLIA [id number] [address] THERAPY NTon 07-11-2021 THERAPY NT Normal [facility] Vancomycin random [Mass/Vol] on 07-11-2021 Vancomycin [Mass/Vol] 28.6 ug/mL High 10.0-20.0 [facility] Comment on above: Order Comment: Speci men Type: BLOOD SPECIMENOrdering Facility: [facility] Address: [address] [place] [address] Result Comment: Refe rence ranges and high/low indicator flags are provided as general guidelines only. The treating physician must determine appropriate target levels/dosing based on the specific clinical situation. Performed By: #### 4 091-5 ####[facility] LABORATORYCLIA [id number] [address] aPTT PPPon 07-11-2021 aPTT Coag (PPP) [Time] 62.0 s High 23.0-32.[address] [facility] Comment on above: Order Comment: Speci men Type: BLOOD SPECIMENOrdering Facility: [facility] Address: [address] [place] [address] Performed By: #### 1 4979-9 ####[facility] LABORATORYCLIA [id number] [address] aPTT Coag (PPP) [Time] 52.7 s High 23.0-32.[address] [facility] Comment on above: Order Comment: Speci men Type: BLOOD SPECIMENOrdering Facility: [facility] Address: [address] [place] [address] Performed By: #### 1 4979-9 ####[facility] LABORATORYCLIA [id number] [place] [address] [place] aPTT Coag (PPP) [Time] 29.9 s Normal 23.0-32.[address] [facility] Comment on above: Order Comment: Speci men Type: BLOOD SPECIMENOrdering Facility: [facility] Address: [address] [place] [address] Performed By: #### 1 4979-9 ####[facility] LABORATORYCLIA [id number] [place] [address] [place] Basic metabolic 2000 panelon 07-10-2021 Anion gap [Moles/Vol] 14 mmol/L Normal 9-18 [facility] Comment on above: Order Comment: Speci men Type: BLOOD SPECIMENOrdering Facility: [facility] Address: [address] [place] [address] Performed By: #### 1 9123-9, 2777-1, 46039-5 ####[facility] HE[facility] SERVICESCLIA [id number] [place] [address] [place] Calcium [Mass/Vol] 8.5 mg/dL Normal 8.5-10.2 [facility] Comment on above: Order Comment: Speci men Type: BLOOD SPECIMENOrdering Facility: [facility] Address: [address] [place] [address] Performed By: #### 1 9123-9, 2777-1, 00521-0 ####[facility] LABORATORYCLIA [id number] [address] [place] Chloride [Moles/Vol] 100 mmol/L Normal 97-105 [facility] Comment on above: Order Comment: Speci men Type: BLOOD SPECIMENOrdering Facility: [facility] Address: [address] [place] [address] Performed By: #### 1 9123-9, 2777-1, 33539-0 ####[facility] SERVICESCLIA [id number] [address] STATES OF [facility] CO2 [Moles/Vol] 27 mmol/L Normal 22-30 [facility] Comment on above: Order Comment: Speci men Type: BLOOD SPECIMENOrdering Facility: [facility] Address: [address] [place] [address] Performed By: #### 1 9123-9, 2777, 92238-0 ####[facility] SERVICESCLIA [id number] [address] Creatinine [Mass/Vol] 0.66 mg/dL Low 0.73-1.22 [facility] Comment on above: Order Comment: Speci men Type: BLOOD SPECIMENOrdering Facility: [facility] Address: [address] [place] [address] Performed By: #### 1 9123-9, 2777, 39901-4 ####[facility] COUNTYIA [id number] [address] ESTIMATED GLOMERULAR FILTRATION RATE 102 mL/min/1.73m??? Normal >=60 [facility] Comment on above: Order Comment: Speci men Type: BLOOD SPECIMENOrdering Facility: [facility] Address: [address] [place] [address] Result Comment: Luzmaria mated Glomerular Filtration Rate [...] GFR. Performed By: #### 1 9123-9, 2777-1, 55084-7 ####[facility] LABORATORYCLIA [id number] [place] [address] [place] Glucose [Mass/Vol] 93 mg/dL Normal 74-99 [facility] Comment on above: Order Comment: Shira feldman Type: BLOOD SPECIMENOrdering Facility: [facility] Address: [address] [place], [place] [id number] Result Comment: The [employer] (ADA) [...] 1). Performed By: #### 1 9123-9, 2777-, 39802-4 ####[facility] LABORATORYCLIA [id number] [place] [address] [place] Potassium [Moles/Vol] 3.5 mmol/L Low 3.7-5.1 [facility] Comment on above: Order Comment: Shira feldman Type: BLOOD SPECIMENOrdering Facility: [facility] Address: [address] [place], [place] [id number] Performed By: #### 1 9123-9, 2777-, 88854-2 ####[facility] LABORATORYCLIA [id number] [place] [address] [place] Sodium [Moles/Vol] 141 mmol/L Normal 136-144 [facility] Comment on above: Order Comment: Shira feldman Type: BLOOD SPECIMENOrdering Facility: [facility] Address: [address] [place], [place] [address] Performed By: #### 1 9123-9, 2777-, 11643-8 ####[facility] LABORATORYCLIA [id number] [place] [address] [place] Urea nitrogen [Mass/Vol] 11 mg/dL Normal 9-24 [facility] Comment on above: Order Comment: Speci men Type: BLOOD SPECIMENOrdering Facility: [facility] Address: [address] [place] [address] Performed By: #### 1 9123-9, 2777-1, 12821-3 ####[facility] LABORATORYCLIA [id number] [address] STATES [facility] CBC panel Auto (Bld)on 07-10 Erythrocyte distribution width (RBC) [Ratio] 16.2 % High 11.5-15.0 [facility] Comment on above: Order Comment: Speci men Type: BLOOD SPECIMENOrdering Facility: [facility] Address: [address] [place] [address] Performed By: #### 5 8410-2 ####[facility] LABORATORYCLIA [id number] [address] STATES [facility] Hematocrit (Bld) [Volume fraction] 30.6 % Low 39.0-51.0 [facility] Comment on above: Order Comment: Speci men Type: BLOOD SPECIMENOrdering Facility: [facility] Address: [address] [place] [address] Performed By: #### 5 8410-2 ####[facility] LABORATORYCLIA [id number] [address] STATES OF [facility] Hemoglobin (Bld) [Mass/Vol] 9.6 g/dL Low 13.0-17.0 [facility] Comment on above: Order Comment: Speci men Type: BLOOD SPECIMENOrdering Facility: [facility] Address: [address] [place] [address] Performed By: #### 5 8410-2 ####[facility] LABORATORYCLIA [id number] [address] MCH (RBC) [Entitic mass] 28.3 pg Normal 26.0-34.0 [facility] Comment on above: Order Comment: Speci men Type: BLOOD SPECIMENOrdering Facility: [facility] Address: [address] [place] [address] Performed By: #### 5 8410-2 ####[facility] LABORATORYCLIA [id number] [address] MCHC (RBC) [Mass/Vol] 31.4 g/dL Normal 30.5-36.0 [facility] Comment on above: Order Comment: Speci men Type: BLOOD SPECIMENOrdering Facility: [facility] Address: [address] [place] [address] Performed By: #### 5 8410-2 ####[facility] LABORATORYCLIA [id number] [address] [place] MCV (RBC) [Entitic vol] 90.3 fL Normal 80.0-100.0 [facility] Comment on above: Order Comment: Speci men Type: BLOOD SPECIMENOrdering Facility: [facility] Address: [address] [place] [address] Performed By: #### 5 8410-2 ####[facility] LABORATORYCLIA [id number] [address] OF [facility] Nucleated RBC (Bld) [#/Vol] 10*3/uL Normal <0.01 [facility] Comment on above: Order Comment: Speci men Type: BLOOD SPECIMENOrdering Facility: [facility] Address: [address] [place] [address] Performed By: #### 5 8410-2 ####[facility] LABORATORYCLIA [id number] [address] Platelet mean volume (Bld) [Entitic vol] 9.7 fL Normal 9.0-12.7 [facility] Comment on above: Order Comment: Speci men Type: BLOOD SPECIMENOrdering Facility: [facility] Address: [address] [place] [address] Performed By: #### 5 8410-2 ####[facility] LABORATORYCLIA [id number] [address] [place] Platelets (Bld) [#/Vol] 306 10*3/uL Normal 150-400 [facility] Comment on above: Order Comment: Speci men Type: BLOOD SPECIMENOrdering Facility: [facility] Address: [address] [place] [address] Performed By: #### 5 8410-2 ####[facility] LABORATORYCLIA [id number] [place] [address] [place] RBC (Bld) [#/Vol] 3.39 10*6/uL Low 4.20-6.00 [facility] Comment on above: Order Comment: Speci men Type: BLOOD SPECIMENOrdering Facility: [facility] Address: [address] [place] [address] Performed By: #### 5 8410-2 ####[facility] LABORATORYCLIA [id number] [address] STATES OF [facility] WBC (Bld) [#/Vol] 9.81 10*3/uL Normal 3.70-11.00 [facility] Comment on above: Order Comment: Speci men Type: BLOOD SPECIMENOrdering Facility: [facility] Address: [address] [place] [address] Performed By: #### 5 8410-2 ####[facility] LABORATORYCLIA [id number] [address] [place] CONSULTon 07-10-2021 CONSULT Normal [facility] CONSULT Normal [facility] Magnesium SerPl-mCncon 07-10 Magnesium [Mass/Vol] 1.9 mg/dL Normal 1.7-2.3 [facility] Comment on above: Order Comment: Speci men Type: BLOOD SPECIMENOrdering Facility: [facility] Address: [address] [place] [address] Performed By: #### 1 9123-9, 2777-1, 24487-0 ####[facility] LABORATORYCLIA [id number] [place] [address] [place] NURSING PROGon 07-10-2021 NURSING PROG Normal [facility] NURSING PROG Normal [facility] NUTRITIONon 07-10-2021 NUTRITION Normal [facility] Phosphate SerPl-mCncon 07-10 Phosphate [Mass/Vol] 3.6 mg/dL Normal 2.7-4.8 [facility] Comment on above: Order Comment: Speci men Type: BLOOD SPECIMENOrdering Facility: [facility] Address: [address] [place] [address] Performed By: #### 1 9123-9, 2777-1, 64871-4 ####[facility] LABORATORYCLIA [id number] [place] [address] [place] US DVT LOWER BILon US DVT LOWER RAINER Normal [facility] aPTT PPPon 07-10-2021 aPTT Coag (PPP) [Time] 28.8 s Normal 23.0-32.[address] [facility] Comment on above: Order Comment: Speci men Type: BLOOD SPECIMENOrdering Facility: [facility] Address: [address] [place] [address] Performed By: #### 1 4979-9 ####[facility] LABORATORYCLIA [id number] [address] aPTT Coag (PPP) [Time] 28.4 s Normal 23.0-32.[address] [facility] Comment on above: Order Comment: Speci men Type: BLOOD SPECIMENOrdering Facility: [facility] Address: [address] [place] [address] Performed By: #### 1 4979-9 ####[facility] LABORATORYCLIA [id number] [place] [address] [place] ALLIED HEALTHon 07-09-2021 ALLIED HEALTH Normal [facility] Basic metabolic 2000 panelon 07-09-2021 Anion gap [Moles/Vol] 9 mmol/L Normal 9-18 [facility] Comment on above: Order Comment: Speci men Type: BLOOD SPECIMENOrdering Facility: [facility] Address: [address] [place] [address] Performed By: #### 1 9123-9, 2777, 31810-6 ####[facility] LABORATORYCLIA [id number] [place] [address] [place] Calcium [Mass/Vol] 8.3 mg/dL Low 8.5-10.2 [facility] Comment on above: Order Comment: Speci men Type: BLOOD SPECIMENOrdering Facility: [facility] Address: [address] [place] [address] Performed By: #### 1 9123-9, 27711-04, 23186-9 ####[facility] LABORATORYCLIA [id number] [place] [address] [place] Chloride [Moles/Vol] 100 mmol/L Normal 97-105 [facility] Comment on above: Order Comment: Speci men Type: BLOOD SPECIMENOrdering Facility: [facility] Address: [address] [place] [address] Performed By: #### 1 9123-9, 27711-04, 59115-5 ####[facility] LABORATORYCLIA [id number] [address] [place] CO2 [Moles/Vol] 29 mmol/L Normal 22-30 [facility] Comment on above: Order Comment: Speci men Type: BLOOD SPECIMENOrdering Facility: [facility] Address: [address] [place] [address] Performed By: #### 1 9123-9, 2776-05, 46372-1 ####[facility] LABORATORYCLIA [id number] [place] [address] [place] Creatinine [Mass/Vol] 0.61 mg/dL Low 0.73-1.22 [facility] Comment on above: Order Comment: Speci men Type: BLOOD SPECIMENOrdering Facility: [facility] Address: [address] [place] [address] Performed By: #### 1 9123-9, 27711-04, 27669-0 ####[facility] LABORATORYCLIA [id number] [place] [address] [place] ESTIMATED GLOMERULAR FILTRATION RATE 104 mL/min/1.73m??? Normal >=60 [facility] Comment on above: Order Comment: Shira feldman Type: BLOOD SPECIMENOrdering Facility: [facility] Address: [address] [place], [place] [address] Result Comment: Luzmaria mated Glomerular Filtration Rate [...] GFR. Performed By: #### 1 9123-9, 2777-1, 53435-2 ####[facility] SERVICESCLIA [id number] [place] [address] [place] Glucose [Mass/Vol] 106 mg/dL High 74-99 [facility] Comment on above: Order Comment: Shira feldman Type: BLOOD SPECIMENOrdering Facility: [facility] Address: [address] [place] [address] Result Comment: The [place] [employer] (ADA) [...] 1). Performed By: #### 1 9123-9, 2777-1, 11835-9 ####[facility] LABORATORYCLIA [id number] [place] [address] [place] Potassium [Moles/Vol] 3.6 mmol/L Low 3.7-5.1 [facility] Comment on above: Order Comment: Speci men Type: BLOOD SPECIMENOrdering Facility: [facility] Address: [address] [place] [address] Performed By: #### 1 9123-9, 2777-, 44181-8 ####[facility] LABORATORYCLIA [id number] [address] STATES OF [facility] Sodium [Moles/Vol] 138 mmol/L Normal 136-144 [facility] Comment on above: Order Comment: Speci men Type: BLOOD SPECIMENOrdering Facility: [facility] Address: [address] [place] [address] Performed By: #### 1 9123-9, 27711-04, 19106-6 ####[facility] LABORATORYCLIA [id number] [address] STATES OF [facility] Urea nitrogen [Mass/Vol] 12 mg/dL Normal 9-24 [facility] Comment on above: Order Comment: Speci men Type: BLOOD SPECIMENOrdering Facility: [facility] Address: [address] [place] [address] Performed By: #### 1 9123-9, 27711-04, 11626-7 ####[facility] LABORATORYCLIA [id number] [address] STATES OF [facility] CBC panel Auto (Bld)on 07-09 Erythrocyte distribution width (RBC) [Ratio] 16.2 % High 11.5-15.0 [facility] Comment on above: Order Comment: Speci men Type: BLOOD SPECIMENOrdering Facility: [facility] Address: [address] [place] [address] Performed By: #### 5 8410-2 ####[facility] LABORATORYCLIA [id number] [address] Hematocrit (Bld) [Volume fraction] 29.0 % Low 39.0-51.0 [facility] Comment on above: Order Comment: Speci men Type: BLOOD SPECIMENOrdering Facility: [facility] Address: [address] [place] [address] Performed By: #### 5 8410-2 ####[facility] LABORATORYCLIA [id number] [address] Hemoglobin (Bld) [Mass/Vol] 8.8 g/dL Low 13.0-17.0 [facility] Comment on above: Order Comment: Speci men Type: BLOOD SPECIMENOrdering Facility: [facility] Address: [address] [place] [address] Performed By: #### 5 8410-2 ####[facility] LABORATORYCLIA [id number] [address] MCH (RBC) [Entitic mass] 27.0 pg Normal 26.0-34.0 [facility] Comment on above: Order Comment: Speci men Type: BLOOD SPECIMENOrdering Facility: [facility] Address: [address] [place] [address] Performed By: #### 5 8410-2 ####[facility] LABORATORYCLIA [id number] [address] MCHC (RBC) [Mass/Vol] 30.3 g/dL Low 30.5-36.0 [facility] Comment on above: Order Comment: Speci men Type: BLOOD SPECIMENOrdering Facility: [facility] Address: [address] [place] [address] Performed By: #### 5 8410-2 ####[facility] LABORATORYCLIA [id number] [address] MCV (RBC) [Entitic vol] 89.0 fL Normal 80.0-100.0 [facility] Comment on above: Order Comment: Speci men Type: BLOOD SPECIMENOrdering Facility: [facility] Address: [address] [place] [address] Performed By: #### 5 8410-2 ####[facility] LABORATORYCLIA [id number] [address] Nucleated RBC (Bld) [#/Vol] 10*3/uL Normal <0.01 [facility] Comment on above: Order Comment: Speci men Type: BLOOD SPECIMENOrdering Facility: [facility] Address: [address] [place], [place] [address] Performed By: #### 5 8410-2 ####[facility] LABORATORYCLIA [id number] [address] [place] Platelet mean volume (Bld) [Entitic vol] 9.8 fL Normal 9.0-12.7 [facility] Comment on above: Order Comment: Speci men Type: BLOOD SPECIMENOrdering Facility: [facility] Address: [address] [place] [address] Performed By: #### 5 8410-2 ####[facility] LABORATORYCLIA [id number] [address] [place] Platelets (Bld) [#/Vol] 281 10*3/uL Normal 150-400 [facility] Comment on above: Order Comment: Speci men Type: BLOOD SPECIMENOrdering Facility: [facility] Address: [address] [place], [place] [address] Performed By: #### 5 8410-2 ####[facility] LABORATORYCLIA [id number] [place] [address] [place] RBC (Bld) [#/Vol] 3.26 10*6/uL Low 4.20-6.00 [facility] Comment on above: Order Comment: Speci men Type: BLOOD SPECIMENOrdering Facility: [facility] Address: [address] [place], [place] [address] Performed By: #### 5 8410-2 ####[facility] LABORATORYCLIA [id number] [address] [place] WBC (Bld) [#/Vol] 9.12 10*3/uL Normal 3.70-11.00 [facility] Comment on above: Order Comment: Speci men Type: BLOOD SPECIMENOrdering Facility: [facility] Address: [address] [place], [place] [address] Performed By: #### 5 8410-2 ####[facility] LABORATORYCLIA [id number] [address] OF [facility] CONSULT PROGon 07-09-2021 CONSULT PROG Normal [facility] CONSULT PROG Normal [facility] HISTORY PHYSICALon HISTORY PHYSICAL Normal [facility] Magnesium SerPl-mCncon 07-09 Magnesium [Mass/Vol] 1.9 mg/dL Normal 1.7-2.3 [facility] Comment on above: Order Comment: Speci men Type: BLOOD SPECIMENOrdering Facility: [facility] Address: [address] [place] [address] Performed By: #### 1 9123-9, 2777-1, 91738-1 ####[facility]ORATORYCLIA [id number] [address] Phosphate SerPl-ncon 07-09 Phosphate [Mass/Vol] 3.6 mg/dL Normal 2.7-4.8 [facility] Comment on above: Order Comment: Speci men Type: BLOOD SPECIMENOrdering Facility: [facility] Address: [address] [place] [address] Performed By: #### 1 9123-9, 2777-1, 87608-6 ####[facility] LABORATORYCLIA [id number] [address] [place] THERAPY NTon 07-09-2021 THERAPY NT Normal [facility] XR ABDOMEN 1V SUPINEon 07-09 XR ABDOMEN 1V SUPINE Normal [facility] ALLIED HEALTHon 07-08-2021 ALLIED HEALTH Normal [facility] ALLIED HEALTH Normal [facility] ALLIED HEALTH Normal [facility] ANES PRE-OPon 07-08-2021 ANES PRE-OP Normal [facility] BRIEF OP NOTon 07-08-2021 BRIEF OP NOT Normal [facility] Bacteria Bld Culton 07-09-19 22 Bacteria identified Cx Nom (Bld) CULTURE, BLOOD: No growth 5 days Normal [facility] Comment on above: Performed By: #### 6 00-7 ####[facility] LABORATORYCLIA [id number] [address] Bacteria identified Cx Nom (Bld) CULTURE, BLOOD: No growth 5 days [facility] Comment on above: Performed By: #### 6 00-7 ####[facility]ORATORYCLIA [id number] [address] Bacteria CSF Culton 07-09-19 22 Bacteria identified Cx Nom (CSF) CULTURE, CSF: No growth 14 days GRAM STAIN: No organisms seen No Polymorphonuclear Leukocytes Few Red Blood Cells Gram stain performed on cytospun specimen. Normal [facility] Comment on above: Performed By: #### 6 06-4 ####[facility] LABORATORYCLIA [id number] [address] Bacteria Ur Culton 2 Bacteria identified Cx Nom (U) ORGANISM ID: 1 10,000 -<50,000 CFU/ml Proteus species Insignificant colony count. No further workup. ORGANISM ID: 2 <10,000 CFU/ml Normal urogenital chris Normal [facility] Comment on above: Performed By: #### 6 30-4 ####[facility]ORATORYCLIA [id number] [address] Bacteria Wnd Culton 07-09-19 22 Bacteria identified Cx Nom (Wound) ORGANISM ID: 1 Coagulase negative staphylococcus Growth in Enrichment Broth Only No susceptibility testing done. Call lab within 72 hours to initiate work-up if clinically indicated. GRAM STAIN: Account credited. Not performed on this specimen type. [facility] Comment on above: Performed By: #### 6 462-6 ####[facility] LABORATORYCLIA [id number] [address] Bacteria identified Cx Nom (Wound) ORGANISM ID: 1 Rare Coagulase negative staphylococcus No susceptibility testing done. Call lab within 72 hours to initiate work-up if clinically indicated. GRAM STAIN: Account credited. Not performed on this specimen type. [facility] Comment on above: Performed By: #### 6 462-6 ####[facility]ORATORYCLIA [id number] [place] [address] [place] Bacteria identified Cx Nom (Wound) CULTURE, INTRAOPERATIVE HARDWARE: No growth 14 days GRAM STAIN: Account credited. Not performed on this specimen type. Normal [facility] Comment on above: Performed By: #### 6 462-6 ####[facility]ORATORYCLIA [id number] [place] [address] [place] Basic metabolic 2000 panelon 07-08-2021 Anion gap [Moles/Vol] 9 mmol/L Normal 9-18 [facility] Comment on above: Order Comment: Speci men Type: BLOOD SPECIMENOrdering Facility: [facility] Address: [address] [place] [address] Performed By: #### 2 4321-2 ####[facility]ORATORYCLIA [id number] [place] [address] [place] Calcium [Mass/Vol] 8.5 mg/dL Normal 8.5-10.2 [facility] Comment on above: Order Comment: Speci men Type: BLOOD SPECIMENOrdering Facility: [facility] Address: [address] [place] [address] Performed By: #### 2 4321-2 ####[facility] LABORATORYCLIA [id number] [address] [place] Chloride [Moles/Vol] 98 mmol/L Normal 97-105 [facility] Comment on above: Order Comment: Speci men Type: BLOOD SPECIMENOrdering Facility: [facility] Address: [address] [place] [address] Performed By: #### 2 4321-2 ####[facility] LABORATORYCLIA [id number] [address] [place] CO2 [Moles/Vol] 31 mmol/L High 22-30 [facility] Comment on above: Order Comment: Speci men Type: BLOOD SPECIMENOrdering Facility: [facility] Address: [address] [place] [address] Performed By: #### 2 4321-2 ####[facility] LABORATORYCLIA [id number] [address] STATES OF [facility] Creatinine [Mass/Vol] 0.64 mg/dL Low 0.73-1.22 [facility] Comment on above: Order Comment: Shira francia Type: BLOOD SPECIMENOrdering Facility: [facility] Address: [address] [place] [address] Performed By: #### 2 4321-2 ####[facility] LABORATORYCLIA [id number] [address] ESTIMATED GLOMERULAR FILTRATION RATE 102 mL/min/1.73m??? Normal >=60 [facility] Comment on above: Order Comment: Shira feldman Type: BLOOD SPECIMENOrdering Facility: [facility] Address: [address] [place] [address] Result Comment: Luzmaria mated Glomerular Filtration Rate [...] actual GFR. Performed By: #### 2 4321-2 ####[facility]ORATORYCLIA [id number] [address] [place] Glucose [Mass/Vol] 114 mg/dL High 74-99 [facility] Comment on above: Order Comment: Johncara feldman Type: BLOOD SPECIMENOrdering Facility: [facility] Address: [address] [place] [address] Result Comment: The [place] [employer] (ADA) [...] 2016.39(Suppl 1). Performed By: #### 2 4321-2 ####[facility]ORATORYCLIA [id number] [place] [address] [place] Potassium [Moles/Vol] 3.4 mmol/L Low 3.7-5.1 [facility] Comment on above: Order Comment: Speci men Type: BLOOD SPECIMENOrdering Facility: [facility] Address: [address] [place] [address] Performed By: #### 2 4321-2 ####[facility] LABORATORYCLIA [id number] [address] STATES [facility] Sodium [Moles/Vol] 138 mmol/L Normal 136-144 [facility] Comment on above: Order Comment: Speci men Type: BLOOD SPECIMENOrdering Facility: [facility] Address: [address] [place] [address] Performed By: #### 2 4321-2 ####[facility]ORATORYCLIA [id number] [address] STATES [facility] Urea nitrogen [Mass/Vol] 14 mg/dL Normal 9-24 [facility] Comment on above: Order Comment: Speci men Type: BLOOD SPECIMENOrdering Facility: [facility] Address: [address] [address] Performed By: #### 2 4321-2 ####[facility]ORATORYCLIA [id number] [place] [address] [place] CBC W Auto Differential pane l (Bld)on 07-08-2021 Basophils (Bld) [#/Vol] 0.05 10*3/uL Normal <0.11 [facility] Comment on above: Order Comment: Speci men Type: BLOOD SPECIMENOrdering Facility: [facility] Address: [address] [address] Performed By: #### 5 7021-8 ####[facility]ORATORYCLIA [id number] [address] [place] Basophils/100 WBC (Bld) 0.4 % Normal [facility] Comment on above: Order Comment: Speci men Type: BLOOD SPECIMENOrdering Facility: [facility] Address: [address] [place] [address] Performed By: #### 5 7021-8 ####[facility]ORATORYCLIA [id number] [address] [place] Differential cell count method Nom (Bld) Auto Normal [facility] Comment on above: Order Comment: Speci men Type: BLOOD SPECIMENOrdering Facility: [facility] Address: [address] [place] [address] Performed By: #### 5 7021-8 ####[facility]ORATORYCLIA [id number] [address] [place] Eosinophils (Bld) [#/Vol] 0.68 10*3/uL High <0.46 [facility] Comment on above: Order Comment: Speci men Type: BLOOD SPECIMENOrdering Facility: [facility] Address: [address] [place] [address] Performed By: #### 5 7021-8 ####[facility]ORATORYCLIA [id number] [address] Eosinophils/100 WBC (Bld) 5.4 % Normal [facility] Comment on above: Order Comment: Speci men Type: BLOOD SPECIMENOrdering Facility: [facility] Address: [address] [place] [address] Performed By: #### 5 7021-8 ####[facility]ATORYCLIA [id number] [address] [place] Erythrocyte distribution width (RBC) [Ratio] 16.3 % High 11.5-15.0 [facility] Comment on above: Order Comment: Speci men Type: BLOOD SPECIMENOrdering Facility: [facility] Address: [address] [address] Performed By: #### 5 7021-8 ####[facility]ORATORYCLIA [id number] [address] Hematocrit (Bld) [Volume fraction] 35.7 % Low 39.0-51.0 [facility] Comment on above: Order Comment: Speci men Type: BLOOD SPECIMENOrdering Facility: [facility] Address: [address] [place] [address] Performed By: #### 5 7021-8 ####[facility]ORATORYCLIA [id number] [address] Hemoglobin (Bld) [Mass/Vol] 10.8 g/dL Low 13.0-17.0 [facility] Comment on above: Order Comment: Speci men Type: BLOOD SPECIMENOrdering Facility: [facility] Address: [address] [place] [address] Performed By: #### 5 7021-8 ####[facility]ORATORYCLIA [id number] [address] IMMATURE GRAN % 0.4 % Normal [facility] Comment on above: Order Comment: Speci men Type: BLOOD SPECIMENOrdering Facility: [facility] Address: [address] [place] [address] Performed By: #### 5 7021-8 ####[facility]ORATORYCLIA [id number] [address] IMMATURE GRAN ABS 0.05 k/uL Normal <0.10 [facility] Comment on above: Order Comment: Speci men Type: BLOOD SPECIMENOrdering Facility: [facility] Address: [address] [place] [address] Performed By: #### 5 7021-8 ####[facility]ORATORYCLIA [id number] [address] OF [facility] Lymphocytes (Bld) [#/Vol] 1.85 10*3/uL Normal 1.00-4.00 [facility] Comment on above: Order Comment: Speci men Type: BLOOD SPECIMENOrdering Facility: [facility] Address: [address] [place] [address] Performed By: #### 5 7021-8 ####[facility]ORATORYCLIA [id number] [address] Lymphocytes/100 WBC (Bld) 14.7 % Normal [facility] Comment on above: Order Comment: Speci men Type: BLOOD SPECIMENOrdering Facility: [facility] Address: [address] [place] [address] Performed By: #### 5 7021-8 ####[facility]ORATORYCLIA [id number] [address] MCH (RBC) [Entitic mass] 27.1 pg Normal 26.0-34.0 [facility] Comment on above: Order Comment: Speci men Type: BLOOD SPECIMENOrdering Facility: [facility] Address: [address] [place] [address] Performed By: #### 5 7021-8 ####[facility]ORATORYCLIA [id number] [address] MCHC (RBC) [Mass/Vol] 30.3 g/dL Low 30.5-36.0 [facility] Comment on above: Order Comment: Speci men Type: BLOOD SPECIMENOrdering Facility: [facility] Address: [address] [place] [address] Performed By: #### 5 7021-8 ####[facility]ORATORYCLIA [id number] [address] MCV (RBC) [Entitic vol] 89.7 fL Normal 80.0-100.0 [facility] Comment on above: Order Comment: Speci men Type: BLOOD SPECIMENOrdering Facility: [facility] Address: [address] [place] [address] Performed By: #### 5 7021-8 ####[facility]ORATORYCLIA [id number] [address] [place] Monocytes (Bld) [#/Vol] 0.87 10*3/uL High <0.87 [facility] Comment on above: Order Comment: Speci men Type: BLOOD SPECIMENOrdering Facility: [facility] Address: [address] [place] [address] Performed By: #### 5 7021-8 ####[facility]ORATORYCLIA [id number] [place] [address] [place] Monocytes/100 WBC (Bld) 6.9 % Normal [facility] Comment on above: Order Comment: Speci men Type: BLOOD SPECIMENOrdering Facility: [facility] Address: [address] [place] [address] Performed By: #### 5 7021-8 ####[facility]ORATORYCLIA [id number] [address] [place] Neutrophils (Bld) [#/Vol] 9.05 10*3/uL High 1.45-7.50 [facility] Comment on above: Order Comment: Speci men Type: BLOOD SPECIMENOrdering Facility: [facility] Address: [address] [place] [address] Performed By: #### 5 7021-8 ####[facility]ORATORYCLIA [id number] [address] [place] Neutrophils/100 WBC (Bld) 72.2 % Normal [facility] Comment on above: Order Comment: Speci men Type: BLOOD SPECIMENOrdering Facility: [facility] Address: [address] [place] [address] Performed By: #### 5 7021-8 ####[facility]ORATORYCLIA [id number] [place] [address] [place] Nucleated RBC (Bld) [#/Vol] 10*3/uL Normal <0.01 [facility] Comment on above: Order Comment: Speci men Type: BLOOD SPECIMENOrdering Facility: [facility] Address: [address] [place] [address] Performed By: #### 5 7021-8 ####[facility]ORATORYCLIA [id number] [address] [place] Nucleated RBC/100 WBC (Bld) [Ratio] 0.0 /100 WBC Normal [facility] Comment on above: Order Comment: Speci men Type: BLOOD SPECIMENOrdering Facility: [facility] Address: [address] [place] [address] Performed By: #### 5 7021-8 ####[facility]ORATORYCLIA [id number] [address] [place] Platelet mean volume (Bld) [Entitic vol] 9.9 fL Normal 9.0-12.7 [facility] Comment on above: Order Comment: Speci men Type: BLOOD SPECIMENOrdering Facility: [facility] Address: [address] [place] [address] Performed By: #### 5 7021-8 ####[facility]ORATORYCLIA [id number] [address] [place] Platelets (Bld) [#/Vol] 335 10*3/uL Normal 150-400 [facility] Comment on above: Order Comment: Speci men Type: BLOOD SPECIMENOrdering Facility: [facility] Address: [address] [place] [address] Performed By: #### 5 7021-8 ####[facility]ORATORYCLIA [id number] [address] [place] RBC (Bld) [#/Vol] 3.98 10*6/uL Low 4.20-6.00 [facility] Comment on above: Order Comment: Speci men Type: BLOOD SPECIMENOrdering Facility: [facility] Address: [address] [place] [address] Performed By: #### 5 7021-8 ####[facility]ORATORYCLIA [id number] [address] [place] WBC (Bld) [#/Vol] 12.55 10*3/uL High 3.70-11.00 [facility] Comment on above: Order Comment: Speci men Type: BLOOD SPECIMENOrdering Facility: [facility] Address: [address] [place] [address] Performed By: #### 5 7021-8 ####[facility]ORATORYCLIA [id number] [address] [place] CK CREATINE KINASEon 022 CK [Catalytic activity/Vol] 72 U/L Normal 51-298 [facility] Comment on above: Order Comment: Speci men Type: BLOOD SPECIMENOrdering Facility: [facility] Address: [address] [place] [address] Performed By: #### C K, 04577-0 ####[facility]ORATORYCLIA [id number] [address] [place] CONSULT PROGon 07-08-2021 CONSULT PROG Normal [facility] CONSULT PROG Normal [facility] CSF MANUAL DIFFon 07-08-2021 DIF TTL, CSF 3 cells counted Normal [facility] Comment on above: Order Comment: Speci men Type: CEREBROSPINAL FLUIDOrdering Facility: [facility] Address: [address] [place] [address] Performed By: #### 3 4563-7, [id number] ####[facility] LABORATORYCLIA [id number] [place] [address] [place] LYMPH%, CSF 33 % Low 50-90 [facility] Comment on above: Order Comment: Speci men Type: CEREBROSPINAL FLUIDOrdering Facility: [facility] Address: [address] [place] [address] Performed By: #### 3 4563-7, [id number] ####[facility]ORATORYCLIA [id number] [place] [address] [place] MONO%, CSF 67 % High 10-50 [facility] Comment on above: Order Comment: Speci men Type: CEREBROSPINAL FLUIDOrdering Facility: [facility] Address: [address] [place] [address] Performed By: #### 3 4563-7, [id number] ####[facility]ORATORYCLIA [id number] [address] [place] CT ABD/PEL W [...] Comment: Speci men Type: CEREBROSPINAL FLUIDOrdering Facility: [facility] Address: [address] [place] [address] Performed By: #### 3 4563-7, [id number] ####[facility]ORATORYCLIA [id number] [address] [place] Clarity (Unsp spec) Clear Normal Clear [facility] Comment on above: Order Comment: Speci men Type: CEREBROSPINAL FLUIDOrdering Facility: [facility] Address: [address] [place] [address] Performed By: #### 3 4563-7, [id number] ####[facility] LABORATORYCLIA [id number] [address] [place] Color (CSF) Colorless Normal Colorless [facility] Comment on above: Order Comment: Speci men Type: CEREBROSPINAL FLUIDOrdering Facility: [facility] Address: [address] [address] Performed By: #### 3 4563-7, [id number] ####[facility] LABORATORYCLIA [id number] [address] OF [place] Color (Spun CSF) Colorless Normal Colorless [facility] Comment on above: Order Comment: Speci men Type: CEREBROSPINAL FLUIDOrdering Facility: [facility] Address: [facility] [place] [address] Performed By: #### 3 4563-7, [id number] ####[facility] LABORATORYCLIA [id number] [address] CSF TUBE NUMBER [employer] Normal [facility] Comment on above: Order Comment: Speci men Type: CEREBROSPINAL FLUIDOrdering Facility: [facility] Address: [address] [place] [address] Performed By: #### 3 4563-7, [id number] ####[facility] LABORATORYCLIA [id number] [address] RBC Manual cnt (CSF) [#/Vol] 94 cells/uL High 0-5 [facility] Comment on above: Order Comment: Speci men Type: CEREBROSPINAL FLUIDOrdering Facility: [facility] Address: [address] [place] [address] Performed By: #### 3 4563-7, [id number] ####[facility] LABORATORYCLIA [id number] [address] WBC Manual cnt (CSF) [#/Vol] 1 cells/uL Normal 0-5 [facility] Comment on above: Order Comment: Speci men Type: CEREBROSPINAL FLUIDOrdering Facility: [facility] Address: [address] [place] [address] Performed By: #### 3 4563-7, [id number] ####[facility] LABORATORYCLIA [id number] [address] Comprehensive metabolic 2000 panelon 07-08-2021 Albumin [Mass/Vol] 3.6 g/dL Low 3.9-4.9 [facility] Comment on above: Order Comment: Speci men Type: BLOOD SPECIMENOrdering Facility: [facility] Address: [address] [place] [address] Performed By: #### C K, 91235-2 ####[facility] LABORATORYCLIA [id number] [address] [place] ALP [Catalytic activity/Vol] 125 U/L High 38-113 [facility] Comment on above: Order Comment: Speci men Type: BLOOD SPECIMENOrdering Facility: [facility] Address: [address] [place] [address] Performed By: #### Eileen Valdivia, 47522-4 ####[facility] LABORATORYCLIA [id number] [address] STATES [place] ALT With P-5'-P [Catalytic activity/Vol] 24 U/L Normal 10-54 [facility] Comment on above: Order Comment: Speci men Type: BLOOD SPECIMENOrdering Facility: [facility] Address: [address] [place] [address] Performed By: #### Eileen Valdivia, 77572-7 ####[facility] LABORATORYCLIA [id number] [address] OF [facility] Anion gap [Moles/Vol] 16 mmol/L Normal 9-18 [facility] Comment on above: Order Comment: Speci men Type: BLOOD SPECIMENOrdering Facility: [facility] Address: [address] [place] [address] Performed By: #### Eileen Valdivia, 75695-4 ####[facility] LABORATORYCLIA [id number] [address] AST With P-5'-P [Catalytic activity/Vol] 21 U/L Normal 14-40 [facility] Comment on above: Order Comment: Speci men Type: BLOOD SPECIMENOrdering Facility: [facility] Address: [address] [place] [address] Performed By: #### Eileen Valdivia, 71727-9 ####[facility] LABORATORYCLIA [id number] [address] STATES [place] Bilirubin [Mass/Vol] 0.3 mg/dL Normal 0.2-1.3 [facility] Comment on above: Order Comment: Speci men Type: BLOOD SPECIMENOrdering Facility: [facility] Address: [address] [place] [address] Performed By: #### Eileen Valdivia, 49492-3 ####[facility] LABORATORYCLIA [id number] [place] [address] [place] Calcium [Mass/Vol] 8.9 mg/dL Normal 8.5-10.2 [facility] Comment on above: Order Comment: Speci men Type: BLOOD SPECIMENOrdering Facility: [facility] Address: [address] [place] [address] Performed By: #### Eileen Valdivia, 19502-6 ####[facility] LABORATORYCLIA [id number] [place] [address] [place] Chloride [Moles/Vol] 96 mmol/L Low 97-105 [facility] Comment on above: Order Comment: Speci men Type: BLOOD SPECIMENOrdering Facility: [facility] Address: [address] [place] [address] Performed By: #### Eileen Valdivia, 29936-0 ####[facility] LABORATORYCLIA [id number] [address] [place] CO2 [Moles/Vol] 27 mmol/L Normal 22-30 [facility] Comment on above: Order Comment: Speci men Type: BLOOD SPECIMENOrdering Facility: [facility] Address: [address] [place] [address] Performed By: #### Eileen Valdivia, 98179-8 ####[facility] LABORATORYCLIA [id number] [place] [address] [place] Creatinine [Mass/Vol] 0.68 mg/dL Low 0.73-1.22 [facility] Comment on above: Order Comment: Speci men Type: BLOOD SPECIMENOrdering Facility: [facility] Address: [address] [place] [address] Performed By: #### Eileen Valdivia, 10649-9 ####[facility] LABORATORYCLIA [id number] [address] ESTIMATED GLOMERULAR FILTRATION RATE 101 mL/min/1.73m??? Normal >=60 [facility] Comment on above: Order Comment: Speci men Type: BLOOD SPECIMENOrdering Facility: [facility] Address: [address] [place] [address] Result Comment: Luzmaria mated Glomerular Filtration Rate [...] actual GFR. Performed By: #### Eileen Valdivia, 57881-2 ####[facility] LABORATORYCLIA [id number] [place] [address] [place] Glucose [Mass/Vol] 130 mg/dL High 74-99 [facility] Comment on above: Order Comment: Shira men Type: BLOOD SPECIMENOrdering Facility: [facility] Address: [address] [place] [address] Result Comment: The [employer] Diabetes [employer] (ADA) [...] 2016.39(Suppl 1). Performed By: #### Eileen Valdivia, 94068-5 ####[facility] LABORATORYCLIA [id number] [place] [address] [place] Potassium [Moles/Vol] 3.9 mmol/L Normal 3.7-5.1 [facility] Comment on above: Order Comment: Shira feldman Type: BLOOD SPECIMENOrdering Facility: [facility] Address: [address] Performed By: #### Eileen Valdivia, 15552-1 ####[facility] LABORATORYCLIA [id number] [place] [address] Protein [Mass/Vol] 7.0 g/dL Normal 6.3-8.0 [facility] Comment on above: Order Comment: Speci men Type: BLOOD SPECIMENOrdering Facility: [facility] Address: [address] [place] [address] Performed By: #### C Skip, 38051-8 ####[facility] LABORATORYCLIA [id number] [address] STATES [facility] Sodium [Moles/Vol] 139 mmol/L Normal 136-144 [facility] Comment on above: Order Comment: Speci men Type: BLOOD SPECIMENOrdering Facility: [facility] Address: [address] [place] [address] Performed By: #### Eileen Valdivia, 19386-9 ####[facility] LABORATORYCLIA [id number] [address] STATES [facility] Urea nitrogen [Mass/Vol] 16 mg/dL Normal 9-24 [facility] Comment on above: Order Comment: Speci men Type: BLOOD SPECIMENOrdering Facility: [facility] Address: [address] [place] [address] Performed By: #### Eileen Valdivia, 77309-1 ####[facility]ORATORYCLIA [id number] [address] OF [facility] ED NOTEon 07-08-2021 ED NOTE HNO ID: [id number] Author: Lenora James RN Service: Emergency Medicine Author Type: Registered Nurse Type: ED Notes Filed: 07/08/2021 5:03 PM Note Text: Pt to OR with surgical team Normal [facility] ED NOTE HNO ID: [id number] Author: Lenora James RN Service: Emergency Medicine Author Type: Registered Nurse Type: ED Notes Filed: 07/08/2021 4:50 PM Note Text: OR team to get pt Normal [facility] ED NOTE HNO ID: [id number] Author: Lenora James RN Service: Emergency Medicine Author Type: Registered Nurse Type: ED Notes Filed: 07/08/2021 4:50 PM Note Text: Normal [facility] ED NOTE HNO ID: [id number] Author: Lenora James RN Service: Emergency Medicine Author Type: Registered Nurse Type: ED Notes Filed: 07/08/2021 4:50 PM Note Text: Spoke with presurg; pt to go to OR now [facility] ED NOTE HNO ID: [id number] Author: Lenora James RN Service: Emergency Medicine Author Type: Registered Nurse Type: ED Notes Filed: 07/08/2021 4:12 PM Note Text: Neurosurgery at beside [facility] ED NOTE HNO ID: [id number] Author: Lenora James RN Service: Emergency Medicine Author Type: Registered Nurse Type: ED Notes Filed: 07/08/2021 2:35 PM Note Text: respiratory aware of pt breathing treatments [facility] ED NOTE HNO ID: [id number] Author: Lisa Woo RN Service: ? Author Type: Registered Nurse Type: ED Notes Filed: 07/08/2021 2:20 PM Note Text: Xray notified pt is ready. [facility] ED NOTE HNO ID: [id number] Author: Lenora James RN Service: Emergency Medicine Author Type: Registered Nurse Type: ED Notes Filed: 07/08/2021 12:14 PM Note Text: CT notified regarding imaging orders placed [facility] ED NOTE Normal [facility] ED PROV NOTEon 07-08-2021 ED PROV NOTE Normal [facility] Glucose CSF-mCncon 2 Glucose (CSF) [Mass/Vol] 88 mg/dL High 40-70 [facility] Comment on above: Order Comment: Speci men Type: CEREBROSPINAL FLUIDOrdering Facility: [facility] Address: [address] [place] [phone] Result Comment: Lumb ar CSF glucose values of healthy patients are approximately 60% of the plasma values and must always be compared with a concurrently measured plasma value for adequate clinical interpretation.References: 1. Glucose HK (GLUC3) [package insert V 12.0 Libyan]. [employer], [place], [place]. September 2015. 2. Michelle Moore, Michelle Manjarrez (2015). Chapter 7: Glucose and Lactate. Marianela Alcocer al.(eds.), Cerebrospinal Fluid in Clinical Neurology. [place]: [employer]. Performed By: #### 2 880-3, 2342-4 ####[facility] LABORATORYCLIA [id number] [address] HIGH SENSITIVITY TROPONIN To n 07-08-2021 HIGH SENSITIVITY TAMIKO 27 ng/L High <12 [facility] Comment on above: Order Comment: Speci men Type: BLOOD SPECIMENOrdering Facility: [facility] Address: [address] [place] [address] Result Comment: When assessing risk for acute [...] day MACE. Performed By: #### H STNT ####[facility] LABORATORYIA [id number] [address] HIGH SENSITIVITY TAMIKO 36 ng/L High <12 [facility] Comment on above: Order Comment: Shira feldman Type: BLOOD SPECIMENOrdering Facility: [facility] Address: [address] [place] [address] Result Comment: When assessing risk for acute [...] day MACE. Performed By: #### H STNT ####[facility] LABORATORYIA [id number] [address] STATES OF [facility] HISTORY PHYSICALon HISTORY PHYSICAL Normal [facility] NURSING PROGon 07-08-2021 NURSING PROG Normal [facility] OPERATIVE NOon 07-08-2021 OPERATIVE NO Normal [facility] Prot CSF-mCncon 07-08-2021 Protein (CSF) [Mass/Vol] 33 mg/dL Normal 15-45 [facility] Comment on above: Order Comment: Speci men Type: CEREBROSPINAL FLUIDOrdering Facility: [facility] Address: [address] [place] [address] Performed By: #### 2 880-3, 2342-4 ####[facility] LABORATORYCLIA [id number] [address] [place] SARS-CoV-2 RNA Resp Ql MEGAN+p robeon 07-08-2021 SARS-CoV-2 (COVID-19) RNA MEGAN+probe Ql (Resp) COVID 19 RESULT: SARS-CoV-2 (Agent of COVID-19) Not Detected by RT-PCR or equivalent method. This test has been authorized by FDA under an Emergency Use Authorization (EUA). Normal [facility] Comment on above: Performed By: #### 9 4500-6 ####[facility] LABORATORYCLIA [id number] [address] [place] STAPH AUREUS PCRon 2 S. aureus and MRSA panel MEGAN+probe (Nose) Normal Negative [facility] Comment on above: Order Comment: Speci men Type: SWAB OF INTERNAL NOSEOrdering Facility: [facility] Address: [address] [place] [address] Result Comment: Nega tive for Staphylococcus aureus by PCR.Negative for MRSA by PCR Performed By: #### S APCR ####[facility] LABORATORYCLIA [id number] [place] [address] [place] Urinalysis complete panel (U )on 07-08-2021 Bacteria LM.HPF (Urine sed) [#/Area] Few Abnormal None Seen [facility] Comment on above: Order Comment: Speci men Type: URINE SPECIMENOrdering Facility: [facility] Address: [address] [place] [address] Performed By: #### 2 4356-8 ####[facility] LABORATORYCLIA [id number] [facility] [address] [address] Bilirubin Ql (U) Negative Normal Negative [facility] Comment on above: Order Comment: Speci men Type: URINE SPECIMENOrdering Facility: [facility] Address: [address] [place] [address] Performed By: #### 2 4356-8 ####[facility] LABORATORYCLIA [id number] [address] Clarity (Unsp spec) Turbid Abnormal Clear [facility] Comment on above: Order Comment: Speci men Type: URINE SPECIMENOrdering Facility: [facility] Address: [address] [place] [address] Performed By: #### 2 4356-8 ####[facility] LABORATORYCLIA [id number] [address] Color (U) Light Yellow Normal yellow [facility] Comment on above: Order Comment: Speci men Type: URINE SPECIMENOrdering Facility: [facility] Address: [address] [place] [address] Performed By: #### 2 4356-8 ####[facility] LABORATORYCLIA [id number] [address] Glucose Test strip (U) [Mass/Vol] Negative Normal Negative [facility] Comment on above: Order Comment: Speci men Type: URINE SPECIMENOrdering Facility: [facility] Address: [address] [place] [address] Performed By: #### 2 4356-8 ####[facility] LABORATORYCLIA [id number] [address] STATES [facility] Hemoglobin Ql (U) Negative Normal Negative [facility] Comment on above: Order Comment: Speci men Type: URINE SPECIMENOrdering Facility: [facility] Address: [address] [place] [address] Performed By: #### 2 4356-8 ####[facility] LABORATORYCLIA [id number] [address] [place] Hyaline casts (Urine sed) [#/Area] 1-3 /LPF Abnormal 0 /LPF [facility] Comment on above: Order Comment: Speci men Type: URINE SPECIMENOrdering Facility: [facility] Address: [address] [place] [address] Performed By: #### 2 4356-8 ####[facility] LABORATORYCLIA [id number] [address] STATES [facility] Ketones Ql (U) Negative Normal Negative [facility] Comment on above: Order Comment: Speci men Type: URINE SPECIMENOrdering Facility: [facility] Address: [address] [place] [address] Performed By: #### 2 4356-8 ####[facility] LABORATORYCLIA [id number] [address] Leukocyte esterase Test strip Ql (U) Negative Normal Negative [facility] Comment on above: Order Comment: Speci men Type: URINE SPECIMENOrdering Facility: [facility] Address: [address] [place] [address] Performed By: #### 2 4356-8 ####[facility] LABORATORYCLIA [id number] [address] STATES [facility] Nitrite Ql (U) Negative Normal Negative [facility] Comment on above: Order Comment: Speci men Type: URINE SPECIMENOrdering Facility: [facility] Address: [address] [place] [address] Performed By: #### 2 4356-8 ####[facility]ORATORYCLIA [id number] [address] [place] pH (U) 5.0 [pH] Normal 5.0-8.0 [facility] Comment on above: Order Comment: Speci men Type: URINE SPECIMENOrdering Facility: [facility] Address: [address] [place] [address] Performed By: #### 2 4356-8 ####[facility] LABORATORYCLIA [id number] [address] [place] Protein (U) [Mass/Vol] Negative Normal Negative [facility] Comment on above: Order Comment: Speci men Type: URINE SPECIMENOrdering Facility: [facility] Address: [address] [place] [address] Performed By: #### 2 4356-8 ####[facility] LABORATORYCLIA [id number] [address] STATES [facility] RBC LM.HPF (Urine sed) [#/Area] 11-25 /HPF Abnormal 0-3 /HPF [facility] Comment on above: Order Comment: Speci men Type: URINE SPECIMENOrdering Facility: [facility] Address: [address] [place] [address] Performed By: #### 2 4356-8 ####[facility] HE[facility] SERVICESCLIA [id number] [address] Specific gravity (U) [Rel density] 1.018 Normal 1.005-1.030 [facility] Comment on above: Order Comment: Speci men Type: URINE SPECIMENOrdering Facility: [facility] Address: [address] [place] [address] Performed By: #### 2 4356-8 ####[facility] LABORATORYCLIA [id number] [address] Urobilinogen Ql (U) Normal Normal Negative [facility] Comment on above: Order Comment: Speci men Type: URINE SPECIMENOrdering Facility: [facility] Address: [address] [place] [address] Performed By: #### 2 4356-8 ####[facility] LABORATORYCLIA [id number] [address] WBC LM.HPF (Urine sed) [#/Area] /[HPF] Abnormal 0-5 /HPF [facility] Comment on above: Order Comment: Speci men Type: URINE SPECIMENOrdering Facility: [facility] Address: [address] [place] [address] Performed By: #### 2 4356-8 ####[facility] LABORATORYCLIA [id number] [place] [address] [facility] OF [facility] Vancomycin random [Mass/Vol] on 07-08-2021 Vancomycin [Mass/Vol] 31.0 ug/mL High 10.0-20.0 [facility] Comment on above: Order Comment: Speci men Type: BLOOD SPECIMENOrdering Facility: [facility] Address: [facility] [place] [phone] Result Comment: Refe rence ranges and high/low indicator flags are provided as general guidelines only. The treating physician must determine appropriate target levels/dosing based on the specific clinical situation. Performed By: #### 4 091-5 ####[facility] LABORATORYCLIA [id number] [address] XR ABD 2V SUPINE W UPR/DECUB [...] Hospital HISTORY PHYSICALon HISTORY PHYSICAL HNO ID: [id number] Author: Amy Beltran MD Service: ? Author Type: Physician Type: HANDP Filed: 06/30/2021 6:42 PM Note Text: Connected Care Unit History and Physical Facility: [facility] Level of Care: Skilled Admission Date: June [...] regarding the above plan. Total time spent icim-pl-zcvh and/or counseling and coordinating care on the skilled care unit for patient was approximately 45 minutes SUBJECTIVE (HISTORY) Chief Complaint: Confusion, infection, blood clot. Andrew Sifuentes is being seen today for prison facility ([facility] admission AND management of weakness, tube feed, infected retroperitoneal infection and seizure. HPI: This is a 71 year old male who presents from [facility] with primary admitting diagnosis of [...] CT brain concerning for hydrocephalus. 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 Normal [facility] Basic metabolic 2000 panelon 06-28-2021 Anion gap [Moles/Vol] 7 mmol/L Low 9-18 [facility] Comment on above: Order Comment: Speci men Type: BLOOD SPECIMENOrdering Facility: [facility] Address: [address] Performed By: #### 2 4320-2, ####[facility] LABORATORYCLIA [id number] [place] [address] [place] Calcium [Mass/Vol] 8.8 mg/dL Normal 8.5-10.2 [facility] Comment on above: Order Comment: Speci men Type: BLOOD SPECIMENOrdering Facility: [facility] Address: [address] [place] [address] Performed By: #### 2 4320-06, ####[facility] LABORATORYCLIA [id number] [place] [address] [place] Chloride [Moles/Vol] 103 mmol/L Normal 97-105 [facility] Comment on above: Order Comment: Speci men Type: BLOOD SPECIMENOrdering Facility: [facility] Address: [address] [place] [address] Performed By: #### 2 4320-06, ####[facility] LABORATORYCLIA [id number] [place] [address] [place] CO2 [Moles/Vol] 28 mmol/L Normal 22-30 [facility] Comment on above: Order Comment: Speci men Type: BLOOD SPECIMENOrdering Facility: [facility] Address: [address] [place] [address] Performed By: #### 2 4320-06, ####[facility] LABORATORYCLIA [id number] [place] [address] [place] Creatinine [Mass/Vol] 0.57 mg/dL Low 0.73-1.22 [facility] Comment on above: Order Comment: Speci men Type: BLOOD SPECIMENOrdering Facility: [facility] Address: [address] [place] [address] Performed By: #### 2 2, ####[facility] LABORATORYCLIA [id number] [place] [address] [place] GFR/1.73 sq M.predicted MDRD (S/P/Bld) [Vol rate/Area] mL/min/{1.73_m2} Normal [facility] Comment on above: Order Comment: Shira feldman Type: BLOOD SPECIMENOrdering Facility: [facility] Address: [address] [phone] Result Comment: >60e GFR (Estimated GFR) Units [...] actual GFR. Performed By: #### 2 4321-2, 60357-0 ####[facility] LABORATORYCLIA [id number] [address] OF [facility] Glucose [Mass/Vol] 120 mg/dL High 74-99 [facility] Comment on above: Order Comment: Shira feldman Type: BLOOD SPECIMENOrdering Facility: [facility] Address: [address] [place], [place] [phone] Result Comment: The [place] [employer] (ADA) [...] 2016.39(Suppl 1). Performed By: #### 2 4321-2, 49542-3 ####[facility] LABORATORYCLIA [id number] [address] [place] Potassium [Moles/Vol] 3.8 mmol/L Normal 3.7-5.1 [facility] Comment on above: Order Comment: Speci men Type: BLOOD SPECIMENOrdering Facility: [facility] Address: [address] [place] [address] Performed By: #### 2 4321-2, ####[facility] LABORATORYCLIA [id number] [address] [place] Sodium [Moles/Vol] 138 mmol/L Normal 136-144 [facility] Comment on above: Order Comment: Speci men Type: BLOOD SPECIMENOrdering Facility: [facility] Address: [address] [place] [address] Performed By: #### 2 4321-2, ####[facility] LABORATORYCLIA [id number] [address] STATES OF [facility] Urea nitrogen [Mass/Vol] 24 mg/dL Normal 9-24 [facility] Comment on above: Order Comment: Speci men Type: BLOOD SPECIMENOrdering Facility: [facility] Address: [address] [place] [address] Performed By: #### 2 4321-2, ####[facility] LABORATORYCLIA [id number] [address] [place] CASE MANAGEMon 06-28-2021 CASE MANAGEM Normal [facility] CBC panel Auto (Bld)on 06-28 Erythrocyte distribution width (RBC) [Ratio] 15.6 % High 11.5-15.0 [facility] Comment on above: Order Comment: Speci men Type: BLOOD SPECIMENOrdering Facility: [facility] Address: [address] [place] [address] Performed By: #### 5 8410-2 ####[facility] LABORATORYCLIA [id number] [address] [place] Hematocrit (Bld) [Volume fraction] 30.5 % Low 39.0-51.0 [facility] Comment on above: Order Comment: Speci men Type: BLOOD SPECIMENOrdering Facility: [facility] Address: [address] [place] [address] Performed By: #### 5 8410-2 ####[facility] [facility]ATORYCLIA [id number] [address] STATES OF [facility] Hemoglobin (Bld) [Mass/Vol] 9.4 g/dL Low 13.0-17.0 [facility] Comment on above: Order Comment: Speci men Type: BLOOD SPECIMENOrdering Facility: [facility] Address: [address] [place] [address] Performed By: #### 5 8410-2 ####[facility] LABORATORYCLIA [id number] [address] STATES OF [facility] MCH (RBC) [Entitic mass] 27.8 pg Normal 26.0-34.0 [facility] Comment on above: Order Comment: Speci men Type: BLOOD SPECIMENOrdering Facility: [facility] Address: [address] [place] [address] Performed By: #### 5 8410-2 ####[facility]ORATORYCLIA [id number] [address] MCHC (RBC) [Mass/Vol] 30.8 g/dL Normal 30.5-36.0 [facility] Comment on above: Order Comment: Speci men Type: BLOOD SPECIMENOrdering Facility: [facility] Address: [address] [place] [address] Performed By: #### 5 8410-2 ####[facility]ORATORYCLIA [id number] [address] [place] MCV (RBC) [Entitic vol] 90.2 fL Normal 80.0-100.0 [facility] Comment on above: Order Comment: Speci men Type: BLOOD SPECIMENOrdering Facility: [facility] Address: [address] [place] [address] Performed By: #### 5 8410-2 ####[facility]ORATORYCLIA [id number] [address] [place] Nucleated RBC (Bld) [#/Vol] 10*3/uL Normal <0.01 [facility] Comment on above: Order Comment: Speci men Type: BLOOD SPECIMENOrdering Facility: [facility] Address: [address] [place] [address] Performed By: #### 5 8410-2 ####[facility] LABORATORYCLIA [id number] [address] [place] Platelet mean volume (Bld) [Entitic vol] 9.9 fL Normal 9.0-12.7 [facility] Comment on above: Order Comment: Speci men Type: BLOOD SPECIMENOrdering Facility: [facility] Address: [address] [place] [address] Performed By: #### 5 8410-2 ####[facility]ORATORYCLIA [id number] [address] [place] Platelets (Bld) [#/Vol] 333 10*3/uL Normal 150-400 [facility] Comment on above: Order Comment: Speci men Type: BLOOD SPECIMENOrdering Facility: [facility] Address: [address] [place] [address] Performed By: #### 5 8410-2 ####[facility]ORATORYCLIA [id number] [address] [place] RBC (Bld) [#/Vol] 3.38 10*6/uL Low 4.20-6.00 [facility] Comment on above: Order Comment: Speci men Type: BLOOD SPECIMENOrdering Facility: [facility] Address: [address] [place] [address] Performed By: #### 5 8410-2 ####[facility]ORATORYCLIA [id number] [address] [place] WBC (Bld) [#/Vol] 9.71 10*3/uL Normal 3.70-11.00 [facility] Comment on above: Order Comment: Speci men Type: BLOOD SPECIMENOrdering Facility: [facility] Address: [address] [place] [address] Performed By: #### 5 8410-2 ####[facility] LABORATORYCLIA [id number] [address] CNDSon 06-28-2021 CNDS Normal [facility] CONSULT PROGon 06-28-2021 CONSULT PROG Normal [facility] Magnesium SerPl-mCncon 06-28 Magnesium [Mass/Vol] 2.2 mg/dL Normal 1.7-2.3 [facility] Comment on above: Order Comment: Speci men Type: BLOOD SPECIMENOrdering Facility: [facility] Address: [address] [place] [address] Performed By: #### 2 4321-2, ####[facility]ORATORYCLIA [id number] [address] Vancomycin random [Mass/Vol] on 06-28-2021 Vancomycin [Mass/Vol] 23.0 ug/mL High 10.0-20.0 [facility] Comment on above: Order Comment: Speci men Type: BLOOD SPECIMENOrdering Facility: [facility] Address: [address] [place] [address] Result Comment: Refe rence ranges and high/low indicator flags are provided as general guidelines only. The treating physician must determine appropriate target levels/dosing based on the specific clinical situation. Performed By: #### 4 091-5 ####[facility]ORATORYCLIA [id number] [address] [place] ALLIED HEALTHon 06-27-2021 ALLIED HEALTH Normal [facility] Basic metabolic 2000 panelon 06-27-2021 Anion gap [Moles/Vol] 10 mmol/L Normal 9-18 [facility] Comment on above: Order Comment: Speci men Type: BLOOD SPECIMENOrdering Facility: [facility] Address: [address] [place] [address] Performed By: #### 2 4320-2, ####[facility]ORATORYCLIA [id number] [place] [address] [place] Calcium [Mass/Vol] 8.8 mg/dL Normal 8.5-10.2 [facility] Comment on above: Order Comment: Speci men Type: BLOOD SPECIMENOrdering Facility: [facility] Address: [address] [place] [address] Performed By: #### 2 2, ####[facility]ORATORYCLIA [id number] [place] [address] [place] Chloride [Moles/Vol] 104 mmol/L Normal 97-105 [facility] Comment on above: Order Comment: Speci men Type: BLOOD SPECIMENOrdering Facility: [facility] Address: [address] [place] [address] Performed By: #### 2 4320-06, ####[facility]ORATORYCLIA [id number] [address] STATES [place] CO2 [Moles/Vol] 26 mmol/L Normal 22-30 [facility] Comment on above: Order Comment: Speci men Type: BLOOD SPECIMENOrdering Facility: [facility] Address: [address] [place] [address] Performed By: #### 2 4320-06, ####[facility]ORATORYCLIA [id number] [place] [address] [place] Creatinine [Mass/Vol] 0.57 mg/dL Low 0.73-1.22 [facility] Comment on above: Order Comment: Speci men Type: BLOOD SPECIMENOrdering Facility: [facility] Address: [address] [place] [address] Performed By: #### 2 2, ####[facility]ORATORYCLIA [id number] [place] [address] [place] GFR/1.73 sq M.predicted MDRD (S/P/Bld) [Vol rate/Area] mL/min/{1.73_m2} Normal [facility] Comment on above: Order Comment: Shira feldman Type: BLOOD SPECIMENOrdering Facility: [facility] Address: [address] [phone] Result Comment: >60e GFR (Estimated GFR) Units [...] actual GFR. Performed By: #### 2 4321-2, 10055-2 ####[facility]ORATORYCLIA [id number] [place] [address] [place] Glucose [Mass/Vol] 133 mg/dL High 74-99 [facility] Comment on above: Order Comment: Shira feldman Type: BLOOD SPECIMENOrdering Facility: [facility] Address: [address] [place] [address] Result Comment: The [employer] (ADA) [...] 2016.39(Suppl 1). Performed By: #### 2 4321-2, 62646-2 ####[facility]ORATORYCLIA [id number] [place] [address] [place] Potassium [Moles/Vol] 4.2 mmol/L Normal 3.7-5.1 [facility] Comment on above: Order Comment: Speci men Type: BLOOD SPECIMENOrdering Facility: [facility] Address: [address] [place] [address] Performed By: #### 2 4321-2, ####[facility]ORATORYCLIA [id number] [address] STATES [facility] Sodium [Moles/Vol] 140 mmol/L Normal 136-144 [facility] Comment on above: Order Comment: Speci men Type: BLOOD SPECIMENOrdering Facility: [facility] Address: [address] [place] [address] Performed By: #### 2 4321-2, ####[facility]ORATORYCLIA [id number] [address] STATES OF [facility] Urea nitrogen [Mass/Vol] 24 mg/dL Normal 9-24 [facility] Comment on above: Order Comment: Speci men Type: BLOOD SPECIMENOrdering Facility: [facility] Address: [address] [place] [address] Performed By: #### 2 4321-2, ####[facility]ORATORYCLIA [id number] [address] CASE MANAGEMon 06-27-2021 CASE MANAGEM Normal [facility] CBC panel Auto (Bld)on 06-27 Erythrocyte distribution width (RBC) [Ratio] 15.8 % High 11.5-15.0 [facility] Comment on above: Order Comment: Speci men Type: BLOOD SPECIMENOrdering Facility: [facility] Address: [address] [place] [address] Performed By: #### 5 8410-2 ####[facility]ORATORYCLIA [id number] [address] Hematocrit (Bld) [Volume fraction] 31.4 % Low 39.0-51.0 [facility] Comment on above: Order Comment: Speci men Type: BLOOD SPECIMENOrdering Facility: [facility] Address: [address] [place] [address] Performed By: #### 5 8410-2 ####[facility]ORATORYCLIA [id number] [address] Hemoglobin (Bld) [Mass/Vol] 9.3 g/dL Low 13.0-17.0 [facility] Comment on above: Order Comment: Speci men Type: BLOOD SPECIMENOrdering Facility: [facility] Address: [address] [place] [address] Performed By: #### 5 8410-2 ####[facility]ORATORYCLIA [id number] [address] MCH (RBC) [Entitic mass] 27.0 pg Normal 26.0-34.0 [facility] Comment on above: Order Comment: Speci men Type: BLOOD SPECIMENOrdering Facility: [facility] Address: [address] [place] [address] Performed By: #### 5 8410-2 ####[facility]ORATORYCLIA [id number] [address] MCHC (RBC) [Mass/Vol] 29.6 g/dL Low 30.5-36.0 [facility] Comment on above: Order Comment: Speci men Type: BLOOD SPECIMENOrdering Facility: [facility] Address: [address] [place] [address] Performed By: #### 5 8410-2 ####[facility]ORATORYCLIA [id number] [address] STATES [facility] MCV (RBC) [Entitic vol] 91.3 fL Normal 80.0-100.0 [facility] Comment on above: Order Comment: Speci men Type: BLOOD SPECIMENOrdering Facility: [facility] Address: [address] [place] [address] Performed By: #### 5 8410-2 ####[facility]ORATORYCLIA [id number] [address] Nucleated RBC (Bld) [#/Vol] 10*3/uL Normal <0.01 [facility] Comment on above: Order Comment: Speci men Type: BLOOD SPECIMENOrdering Facility: [facility] Address: [address] [place] [address] Performed By: #### 5 8410-2 ####[facility]ORATORYCLIA [id number] [place] [address] [place] Platelet mean volume (Bld) [Entitic vol] 10.3 fL Normal 9.0-12.7 [facility] Comment on above: Order Comment: Speci men Type: BLOOD SPECIMENOrdering Facility: [facility] Address: [address] [place] [address] Performed By: #### 5 8410-2 ####[facility]ORATORYCLIA [id number] [address] [place] Platelets (Bld) [#/Vol] 359 10*3/uL Normal 150-400 [facility] Comment on above: Order Comment: Speci men Type: BLOOD SPECIMENOrdering Facility: [facility] Address: [address] [place] [address] Performed By: #### 5 8410-2 ####[facility]ORATORYCLIA [id number] [place] [address] [place] RBC (Bld) [#/Vol] 3.44 10*6/uL Low 4.20-6.00 [facility] Comment on above: Order Comment: Speci men Type: BLOOD SPECIMENOrdering Facility: [facility] Address: [address] [place] [address] Performed By: #### 5 8410-2 ####[facility]ORATORYCLIA [id number] [place] [address] [place] WBC (Bld) [#/Vol] 10.73 10*3/uL Normal 3.70-11.00 [facility] Comment on above: Order Comment: Speci men Type: BLOOD SPECIMENOrdering Facility: [facility] Address: [address] [place] [address] Performed By: #### 5 8410-2 ####[facility]ORATORYCLIA [id number] [place] [address] [place] Magnesium [facility]27 Magnesium [Mass/Vol] 2.2 mg/dL Normal 1.7-2.3 [facility] Comment on above: Order Comment: Speci men Type: BLOOD SPECIMENOrdering Facility: [facility] Address: [address] [place] [address] Performed By: #### 2 4321-2, 78700-1 ####[facility]ORATORYCLIA [id number] [address] [place] NT-proBNP [facility]27 Natriuretic peptide.B prohormone N-Terminal [Mass/Vol] 184 pg/mL High <125 [facility] Comment on above: Order Comment: Speci men Type: BLOOD SPECIMENOrdering Facility: [facility] Address: [address] [place] [address] Performed By: #### 3 3762-6 ####[facility]ORATORYCLIA [id number] [place] [address] [place] NUTRITIONon 06-27-2021 NUTRITION Normal [facility] THERAPY NTon 06-27-2021 THERAPY NT Normal [facility] THERAPY NT Normal [facility] XR CHEST 1V FRONTALon 2021 XR CHEST 1V FRONTAL Normal [facility] Basic metabolic 2000 panelon 06-26-2021 Anion gap [Moles/Vol] 9 mmol/L Normal 9-18 [facility] Comment on above: Order Comment: Speci men Type: BLOOD SPECIMENOrdering Facility: [facility] Address: [address] [place] [address] Performed By: #### 1 9123-9, 57539-6 ####[facility]ORATORYCLIA [id number] [address] [place] Calcium [Mass/Vol] 8.7 mg/dL Normal 8.5-10.2 [facility] Comment on above: Order Comment: Speci men Type: BLOOD SPECIMENOrdering Facility: [facility] Address: [address] [place] [address] Performed By: #### 1 9123-9, 34898-5 ####[facility]ORATORYCLIA [id number] [place] [address] [place] Chloride [Moles/Vol] 105 mmol/L Normal 97-105 [facility] Comment on above: Order Comment: Speci men Type: BLOOD SPECIMENOrdering Facility: [facility] Address: [address] [place] [address] Performed By: #### 1 9123-9, 39188-2 ####[facility]ORATORYCLIA [id number] [place] [address] [place] CO2 [Moles/Vol] 26 mmol/L Normal 22-30 [facility] Comment on above: Order Comment: Speci men Type: BLOOD SPECIMENOrdering Facility: [facility] Address: [address] [place] [address] Performed By: #### 1 9123-9, 25307-2 ####[facility]ORATORYCLIA [id number] [place] [address] [place] Creatinine [Mass/Vol] 0.56 mg/dL Low 0.73-1.22 [facility] Comment on above: Order Comment: Speci men Type: BLOOD SPECIMENOrdering Facility: [facility] Address: [address] [place] [address] Performed By: #### 1 9123-9, 10428-5 ####[facility]ORATORYCLIA [id number] [place] [address] [place] GFR/1.73 sq M.predicted MDRD (S/P/Bld) [Vol rate/Area] mL/min/{1.73_m2} Normal [facility] Comment on above: Order Comment: Speci men Type: BLOOD SPECIMENOrdering Facility: [facility] Address: [address] [phone] Result Comment: >60e GFR (Estimated GFR) Units [...] actual GFR. Performed By: #### 1 9123-9, 33473-2 ####[facility] HE[facility] SERVICESCLIA [id number] [place] [address] [place] Glucose [Mass/Vol] 134 mg/dL High 74-99 [facility] Comment on above: Order Comment: Shira feldman Type: BLOOD SPECIMENOrdering Facility: [facility] Address: [address] [place] [address] Result Comment: The [employer] (ADA) [...] 2016.39(Suppl 1). Performed By: #### 1 9123-9, 74725-7 ####[facility]ORATORYCLIA [id number] [place] [address] [place] Potassium [Moles/Vol] 3.8 mmol/L Normal 3.7-5.1 [facility] Comment on above: Order Comment: Shira feldman Type: BLOOD SPECIMENOrdering Facility: [facility] Address: [address] [place] [address] Performed By: #### 1 9123-9, 43395-4 ####[facility]ORATORYCLIA [id number] [address] Sodium [Moles/Vol] 140 mmol/L Normal 136-144 [facility] Comment on above: Order Comment: Speci men Type: BLOOD SPECIMENOrdering Facility: [facility] Address: [address] [place] [address] Performed By: #### 1 9123-9, 60610-9 ####[facility]ORATORYCLIA [id number] [address] [place] Urea nitrogen [Mass/Vol] 24 mg/dL Normal 9-24 [facility] Comment on above: Order Comment: Speci men Type: BLOOD SPECIMENOrdering Facility: [facility] Address: [address] [place] [address] Performed By: #### 1 91239, 12537-7 ####[facility]ORATORYCLIA [id number] [address] STATES [facility] CBC panel Auto (Bld)on 06-26 Erythrocyte distribution width (RBC) [Ratio] 15.9 % High 11.5-15.0 [facility] Comment on above: Order Comment: Speci men Type: BLOOD SPECIMENOrdering Facility: [facility] Address: [address] [place] [address] Performed By: #### 5 8410-2 ####[facility]ORATORYCLIA [id number] [address] Hematocrit (Bld) [Volume fraction] 29.8 % Low 39.0-51.0 [facility] Comment on above: Order Comment: Speci men Type: BLOOD SPECIMENOrdering Facility: [facility] Address: [address] [place] [address] Performed By: #### 5 8410-2 ####[facility]ORATORYCLIA [id number] [place] [address] [place] Hemoglobin (Bld) [Mass/Vol] 9.1 g/dL Low 13.0-17.0 [facility] Comment on above: Order Comment: Speci men Type: BLOOD SPECIMENOrdering Facility: [facility] Address: [address] [place] [address] Performed By: #### 5 8410-2 ####[facility]ORATORYCLIA [id number] [address] MCH (RBC) [Entitic mass] 27.8 pg Normal 26.0-34.0 [facility] Comment on above: Order Comment: Speci men Type: BLOOD SPECIMENOrdering Facility: [facility] Address: [address] [place] [address] Performed By: #### 5 8410-2 ####[facility]ORATORYCLIA [id number] [address] OF [facility] MCHC (RBC) [Mass/Vol] 30.5 g/dL Normal 30.5-36.0 [facility] Comment on above: Order Comment: Speci men Type: BLOOD SPECIMENOrdering Facility: [facility] Address: [address] [place] [address] Performed By: #### 5 8410-2 ####[facility]ORATORYCLIA [id number] [address] MCV (RBC) [Entitic vol] 91.1 fL Normal 80.0-100.0 [facility] Comment on above: Order Comment: Speci men Type: BLOOD SPECIMENOrdering Facility: [facility] Address: [address] [place] [address] Performed By: #### 5 8410-2 ####[facility]ORATORYCLIA [id number] [address] Nucleated RBC (Bld) [#/Vol] 10*3/uL Normal <0.01 [facility] Comment on above: Order Comment: Speci men Type: BLOOD SPECIMENOrdering Facility: [facility] Address: [address] [place] [address] Performed By: #### 5 8410-2 ####[facility]ORATORYCLIA [id number] [address] Platelet mean volume (Bld) [Entitic vol] 10.3 fL Normal 9.0-12.7 [facility] Comment on above: Order Comment: Speci men Type: BLOOD SPECIMENOrdering Facility: [facility] Address: [address] [place] [address] Performed By: #### 5 8410-2 ####[facility]ORATORYCLIA [id number] [address] [place] Platelets (Bld) [#/Vol] 336 10*3/uL Normal 150-400 [facility] Comment on above: Order Comment: Speci men Type: BLOOD SPECIMENOrdering Facility: [facility] Address: [address] [place] [address] Performed By: #### 5 8410-2 ####[facility]ORATORYCLIA [id number] [address] [place] RBC (Bld) [#/Vol] 3.27 10*6/uL Low 4.20-6.00 [facility] Comment on above: Order Comment: Speci men Type: BLOOD SPECIMENOrdering Facility: [facility] Address: [address] [place] [address] Performed By: #### 5 8410-2 ####[facility]ORATORYCLIA [id number] [address] [place] WBC (Bld) [#/Vol] 9.14 10*3/uL Normal 3.70-11.00 [facility] Comment on above: Order Comment: Speci men Type: BLOOD SPECIMENOrdering Facility: [facility] Address: [address] [place] [address] Performed By: #### 5 8410-2 ####[facility] LABORATORYCLIA [id number] [address] OF [facility] CONSULT PROGon 06-26-2021 CONSULT PROG Normal [facility] Magnesium SerPl-mCncon 06-26 Magnesium [Mass/Vol] 2.2 mg/dL Normal 1.7-2.3 [facility] Comment on above: Order Comment: Speci men Type: BLOOD SPECIMENOrdering Facility: [facility] Address: [address] [place] [address] Performed By: #### 1 9123-9, 12622-4 ####[facility] LABORATORYCLIA [id number] [address] OF [facility] NURSING PROGon 06-26-2021 NURSING PROG Normal [facility] NURSING PROG Normal [facility] Basic metabolic 2000 panelon 06-25-2021 Anion gap [Moles/Vol] 8 mmol/L Low 9-18 [facility] Comment on above: Order Comment: Speci men Type: BLOOD SPECIMENOrdering Facility: [facility] Address: [address] [place] [address] Performed By: #### 2 432-2, ####[facility] LABORATORYCLIA [id number] [place] [address] [place] Calcium [Mass/Vol] 8.8 mg/dL Normal 8.5-10.2 [facility] Comment on above: Order Comment: Speci men Type: BLOOD SPECIMENOrdering Facility: [facility] Address: [address] [place] [address] Performed By: #### 2 432-2, ####[facility]ORATORYCLIA [id number] [place] [address] [place] Chloride [Moles/Vol] 105 mmol/L Normal 97-105 [facility] Comment on above: Order Comment: Speci men Type: BLOOD SPECIMENOrdering Facility: [facility] Address: [address] [place] [address] Performed By: #### 2 432-2, ####[facility]ORATORYCLIA [id number] [place] [address] [place] CO2 [Moles/Vol] 27 mmol/L Normal 22-30 [facility] Comment on above: Order Comment: Speci men Type: BLOOD SPECIMENOrdering Facility: [facility] Address: [address] [place] [address] Performed By: #### 2 432-, ####[facility] LABORATORYCLIA [id number] [address] [id number] [place] Creatinine [Mass/Vol] 0.59 mg/dL Low 0.73-1.22 [facility] Comment on above: Order Comment: Speci men Type: BLOOD SPECIMENOrdering Facility: [facility] Address: [address] [place] [address] Performed By: #### 2 43205-08, ####[facility]ORATORYCLIA [id number] [address] [place] GFR/1.73 sq M.predicted MDRD (S/P/Bld) [Vol rate/Area] mL/min/{1.73_m2} Normal [facility] Comment on above: Order Comment: Speci men Type: BLOOD SPECIMENOrdering Facility: [facility] Address: [address] [place] [address] Result Comment: >60e GFR (Estimated GFR) Units [...] actual GFR. Performed By: #### 2 43205-08, ####[facility] LABORATORYCLIA [id number] [place] [address] [place] Glucose [Mass/Vol] 132 mg/dL High 74-99 [facility] Comment on above: Order Comment: Speci men Type: BLOOD SPECIMENOrdering Facility: [facility] Address: [address] [place], [place] [id number] Result Comment: The [employer] (ADA) [...] 2016.39(Suppl 1). Performed By: #### 2 4320-06, ####[facility] LABORATORYCLIA [id number] [place] [address] [place] Potassium [Moles/Vol] 3.9 mmol/L Normal 3.7-5.1 [place] [facility] Comment on above: Order Comment: Johni men Type: BLOOD SPECIMENOrdering Facility: [facility] Address: [address] [place], [place] [address] Performed By: #### 2 4320-06, ####[facility] LABORATORYCLIA [id number] [place] [address] [place] Sodium [Moles/Vol] 140 mmol/L Normal 136-144 [facility] Comment on above: Order Comment: Speci men Type: BLOOD SPECIMENOrdering Facility: [facility] Address: [address] Performed By: #### 2 4320-06, ####[facility] LABORATORYCLIA [id number] [place] [address] [place] Urea nitrogen [Mass/Vol] 24 mg/dL Normal 9-24 [facility] Comment on above: Order Comment: Speci men Type: BLOOD SPECIMENOrdering Facility: [facility] Address: [address] [place] [address] Performed By: #### 2 4321-2, 92882-0 ####[facility] LABORATORYCLIA [id number] [address] [place] CASE MANAGEMon 06-25-2021 CASE MANAGEM Normal [facility] CBC panel Auto (Bld)on 06-25 Erythrocyte distribution width (RBC) [Ratio] 15.9 % High 11.5-15.0 [facility] Comment on above: Order Comment: Speci men Type: BLOOD SPECIMENOrdering Facility: [facility] Address: [address] [place] [address] Performed By: #### 5 8410-2 ####[facility] LABORATORYCLIA [id number] [address] [place] Hematocrit (Bld) [Volume fraction] 31.0 % Low 39.0-51.0 [facility] Comment on above: Order Comment: Speci men Type: BLOOD SPECIMENOrdering Facility: [facility] Address: [address] [place] [address] Performed By: #### 5 8410-2 ####[facility] LABORATORYCLIA [id number] [address] STATES [facility] Hemoglobin (Bld) [Mass/Vol] 9.4 g/dL Low 13.0-17.0 [facility] Comment on above: Order Comment: Speci men Type: BLOOD SPECIMENOrdering Facility: [facility] Address: [address] [place] [address] Performed By: #### 5 8410-2 ####[facility] LABORATORYCLIA [id number] [address] [place] MCH (RBC) [Entitic mass] 28.1 pg Normal 26.0-34.0 [facility] Comment on above: Order Comment: Speci men Type: BLOOD SPECIMENOrdering Facility: [facility] Address: [address] [place] [address] Performed By: #### 5 8410-2 ####[facility] HE[facility] SERVICESCLIA [id number] [address] STATES [facility] MCHC (RBC) [Mass/Vol] 30.3 g/dL Low 30.5-36.0 [facility] Comment on above: Order Comment: Speci men Type: BLOOD SPECIMENOrdering Facility: [facility] Address: [address] [place] [address] Performed By: #### 5 8410-2 ####[facility] LABORATORYCLIA [id number] [address] MCV (RBC) [Entitic vol] 92.5 fL Normal 80.0-100.0 [facility] Comment on above: Order Comment: Speci men Type: BLOOD SPECIMENOrdering Facility: [facility] Address: [address] [place] [address] Performed By: #### 5 8410-2 ####[facility] LABORATORYCLIA [id number] [address] Nucleated RBC (Bld) [#/Vol] 10*3/uL Normal <0.01 [facility] Comment on above: Order Comment: Speci men Type: BLOOD SPECIMENOrdering Facility: [facility] Address: [address] [place] [address] Performed By: #### 5 8410-2 ####[facility] LABORATORYCLIA [id number] [address] [place] Platelet mean volume (Bld) [Entitic vol] 10.5 fL Normal 9.0-12.7 [facility] Comment on above: Order Comment: Speci men Type: BLOOD SPECIMENOrdering Facility: [facility] Address: [address] [place] [address] Performed By: #### 5 8410-2 ####[facility] LABORATORYCLIA [id number] [address] [place] Platelets (Bld) [#/Vol] 311 10*3/uL Normal 150-400 [facility] Comment on above: Order Comment: Speci men Type: BLOOD SPECIMENOrdering Facility: [facility] Address: [address] [place] [address] Performed By: #### 5 8410-2 ####[facility] LABORATORYCLIA [id number] [address] OF [facility] RBC (Bld) [#/Vol] 3.35 10*6/uL Low 4.20-6.00 [facility] Comment on above: Order Comment: Speci men Type: BLOOD SPECIMENOrdering Facility: [facility] Address: [address] [place] [address] Performed By: #### 5 8410-2 ####[facility] LABORATORYCLIA [id number] [address] WBC (Bld) [#/Vol] 9.57 10*3/uL Normal 3.70-11.00 [facility] Comment on above: Order Comment: Speci men Type: BLOOD SPECIMENOrdering Facility: [facility] Address: [address] [place] [address] Performed By: #### 5 8410-2 ####[facility] LABORATORYCLIA [id number] [address] Magnesium SerPl-mCncon 06-25 Magnesium [Mass/Vol] 2.4 mg/dL High 1.7-2.3 [facility] Comment on above: Order Comment: Speci men Type: BLOOD SPECIMENOrdering Facility: [facility] Address: [address] [place] [address] Performed By: #### 2 4321-2, 83972-6 ####[facility] LABORATORYCLIA [id number] [address] Basic metabolic 2000 panelon 06-24-2021 Anion gap [Moles/Vol] 9 mmol/L Normal -18 [facility] Comment on above: Order Comment: Speci men Type: BLOOD SPECIMENOrdering Facility: [facility] Address: [address] [place] [address] Performed By: #### 1 9123-9, 04215-1 ####[facility] LABORATORYCLIA [id number] [place] [address] [place] Calcium [Mass/Vol] 8.6 mg/dL Normal 8.5-10.2 [facility] Comment on above: Order Comment: Speci men Type: BLOOD SPECIMENOrdering Facility: [facility] Address: [address] [place] [address] Performed By: #### 1 9123-9, 91640-5 ####[facility] LABORATORYCLIA [id number] [place] [address] [place] Chloride [Moles/Vol] 103 mmol/L Normal 97-105 [facility] Comment on above: Order Comment: Speci men Type: BLOOD SPECIMENOrdering Facility: [facility] Address: [address] [place] [address] Performed By: #### 1 239, 88232-4 ####[facility] LABORATORYCLIA [id number] [place] [address] [place] CO2 [Moles/Vol] 26 mmol/L Normal 22-30 [facility] Comment on above: Order Comment: Speci men Type: BLOOD SPECIMENOrdering Facility: [facility] Address: [address] [place] [address] Performed By: #### 1 91239, ####[facility] LABORATORYCLIA [id number] [place] [address] [place] Creatinine [Mass/Vol] 0.60 mg/dL Low 0.73-1.22 [facility] Comment on above: Order Comment: Speci men Type: BLOOD SPECIMENOrdering Facility: [facility] Address: [address] [place] [address] Performed By: #### 1 9123-9, 53115-9 ####[facility] LABORATORYCLIA [id number] [place] [address] [place] GFR/1.73 sq M.predicted MDRD (S/P/Bld) [Vol rate/Area] mL/min/{1.73_m2} Normal [facility] Comment on above: Order Comment: Shira feldman Type: BLOOD SPECIMENOrdering Facility: [facility] Address: [address] [place] [address] Result Comment: >60e GFR (Estimated GFR) Units [...] actual GFR. Performed By: #### 1 9123-9, 06489-8 ####[facility] LABORATORYCLIA [id number] [place] [address] [place] Glucose [Mass/Vol] 126 mg/dL High 74-99 [facility] Comment on above: Order Comment: Shira feldman Type: BLOOD SPECIMENOrdering Facility: [facility] Address: [place] [id number] Result Comment: The [place] [employer] (ADA) [...] 2016.39(Suppl 1). Performed By: #### 1 9123-9, 20508-3 ####[facility] LABORATORYCLIA [id number] [place] [address] [place] Potassium [Moles/Vol] 3.9 mmol/L Normal 3.7-5.1 [facility] Comment on above: Order Comment: Speci men Type: BLOOD SPECIMENOrdering Facility: [facility] Address: [address] [place] [address] Performed By: #### 1 9123-9, 08582-8 ####[facility] LABORATORYCLIA [id number] [place] [address] [place] Sodium [Moles/Vol] 138 mmol/L Normal 136-144 [facility] Comment on above: Order Comment: Speci men Type: BLOOD SPECIMENOrdering Facility: [facility] Address: [address] [place] [address] Performed By: #### 1 9123-9, 34947-0 ####[facility] LABORATORYCLIA [id number] [address] [place] Urea nitrogen [Mass/Vol] 24 mg/dL Normal 9-24 [facility] Comment on above: Order Comment: Speci men Type: BLOOD SPECIMENOrdering Facility: [facility] Address: [address] [place] [address] Performed By: #### 1 9123-9, ####[facility] LABORATORYCLIA [id number] [address] [place] CASE MANAGEMon 06-24-2021 CASE MANAGEM Normal [facility] CASE MANAGEM Normal [facility] CASE MANAGEM Normal [facility] CBC panel Auto (Bld)on 06-24 Erythrocyte distribution width (RBC) [Ratio] 16.1 % High 11.5-15.0 [facility] Comment on above: Order Comment: Speci men Type: BLOOD SPECIMENOrdering Facility: [facility] Address: [address] [place] [address] Performed By: #### 5 8410-2 ####[facility] LABORATORYCLIA [id number] [place] [address] [place] Hematocrit (Bld) [Volume fraction] 31.7 % Low 39.0-51.0 [facility] Comment on above: Order Comment: Speci men Type: BLOOD SPECIMENOrdering Facility: [facility] Address: [address] [place] [address] Performed By: #### 5 8410-2 ####[facility] LABORATORYCLIA [id number] [address] OF [facility] Hemoglobin (Bld) [Mass/Vol] 9.7 g/dL Low 13.0-17.0 [facility] Comment on above: Order Comment: Speci men Type: BLOOD SPECIMENOrdering Facility: [facility] Address: [address] [place] [address] Performed By: #### 5 8410-2 ####[facility] LABORATORYCLIA [id number] [address] STATES OF [facility] MCH (RBC) [Entitic mass] 28.0 pg Normal 26.0-34.0 [facility] Comment on above: Order Comment: Speci men Type: BLOOD SPECIMENOrdering Facility: [facility] Address: [address] [place] [address] Performed By: #### 5 8410-2 ####[facility] LABORATORYCLIA [id number] [address] MCHC (RBC) [Mass/Vol] 30.6 g/dL Normal 30.5-36.0 [facility] Comment on above: Order Comment: Speci men Type: BLOOD SPECIMENOrdering Facility: [facility] Address: [address] [place] [address] Performed By: #### 5 8410-2 ####[facility] LABORATORYCLIA [id number] [address] MCV (RBC) [Entitic vol] 91.4 fL Normal 80.0-100.0 [facility] Comment on above: Order Comment: Speci men Type: BLOOD SPECIMENOrdering Facility: [facility] Address: [address] [place] [address] Performed By: #### 5 8410-2 ####[facility] LABORATORYCLIA [id number] [address] [place] Nucleated RBC (Bld) [#/Vol] 10*3/uL Normal <0.01 [facility] Comment on above: Order Comment: Speci men Type: BLOOD SPECIMENOrdering Facility: [facility] Address: [address] [place] [address] Performed By: #### 5 8410-2 ####[facility] LABORATORYCLIA [id number] [address] OF [place] Platelet mean volume (Bld) [Entitic vol] 11.0 fL Normal 9.0-12.7 [facility] Comment on above: Order Comment: Speci men Type: BLOOD SPECIMENOrdering Facility: [facility] Address: [address] [place] [address] Performed By: #### 5 8410-2 ####[facility] LABORATORYCLIA [id number] [address] Platelets (Bld) [#/Vol] 358 10*3/uL Normal 150-400 [facility] Comment on above: Order Comment: Speci men Type: BLOOD SPECIMENOrdering Facility: [facility] Address: [address] [place] [address] Performed By: #### 5 8410-2 ####[facility] LABORATORYCLIA [id number] [address] [place] RBC (Bld) [#/Vol] 3.47 10*6/uL Low 4.20-6.00 [facility] Comment on above: Order Comment: Speci men Type: BLOOD SPECIMENOrdering Facility: [facility] Address: [address] [place] [address] Performed By: #### 5 8410-2 ####[facility] LABORATORYCLIA [id number] [address] [place] WBC (Bld) [#/Vol] 10.07 10*3/uL Normal 3.70-11.00 [facility] Comment on above: Order Comment: Speci men Type: BLOOD SPECIMENOrdering Facility: [facility] Address: [address] [place] [address] Performed By: #### 5 8410-2 ####[facility] LABORATORYCLIA [id number] [place] [address] [place] Magnesium SerPl-mCncon 06-24 Magnesium [Mass/Vol] 2.3 mg/dL Normal 1.7-2.3 [facility] Comment on above: Order Comment: Speci men Type: BLOOD SPECIMENOrdering Facility: [facility] Address: [address] [place] [address] Performed By: #### 1 9123-9, 64808-7 ####[facility] LABORATORYCLIA [id number] [place] [address] [place] ALLIED HEALTHon 06-23-2021 ALLIED HEALTH Normal [facility] Basic metabolic 2000 panelon 06-23-2021 Anion gap [Moles/Vol] 9 mmol/L Normal 9-18 [facility] Comment on above: Order Comment: Speci men Type: BLOOD SPECIMENOrdering Facility: [facility] Address: [address] [place] [address] Performed By: #### 1 9123-9, 88114-4 ####[facility] LABORATORYCLIA [id number] [place] [address] [place] Calcium [Mass/Vol] 8.4 mg/dL Low 8.5-10.2 [facility] Comment on above: Order Comment: Speci men Type: BLOOD SPECIMENOrdering Facility: [facility] Address: [address] [place] [address] Performed By: #### 1 9123-9, 11086-6 ####[facility] LABORATORYCLIA [id number] [place] [address] [place] Chloride [Moles/Vol] 104 mmol/L Normal 97-105 [facility] Comment on above: Order Comment: Speci men Type: BLOOD SPECIMENOrdering Facility: [facility] Address: [address] [place], [place] [address] [address] Performed By: #### 1 9123-9, 50695-5 ####[facility] LABORATORYCLIA [id number] [address] STATES OF [facility] CO2 [Moles/Vol] 26 mmol/L Normal 22-30 [facility] Comment on above: Order Comment: Speci men Type: BLOOD SPECIMENOrdering Facility: [facility] Address: [address] [place] [address] Performed By: #### 1 9123-9, 67004-0 ####[facility] LABORATORYCLIA [id number] [address] [place] Creatinine [Mass/Vol] 0.62 mg/dL Low 0.73-1.22 [facility] Comment on above: Order Comment: Speci men Type: BLOOD SPECIMENOrdering Facility: [facility] Address: [address] [place] [address] Performed By: #### 1 9123-9, 40601-5 ####[facility] LABORATORYCLIA [id number] [address] [place] GFR/1.73 sq M.predicted MDRD (S/P/Bld) [Vol rate/Area] mL/min/{1.73_m2} Normal [facility] Comment on above: Order Comment: Speci men Type: BLOOD SPECIMENOrdering Facility: [facility] Address: [address] [place] [address] Result Comment: >60e GFR (Estimated GFR) Units [...] actual GFR. Performed By: #### 1 9123-9, 21113-3 ####[facility] LABORATORYCLIA [id number] [place] [address] [place] Glucose [Mass/Vol] 111 mg/dL High 74-99 [facility] Comment on above: Order Comment: Speci men Type: BLOOD SPECIMENOrdering Facility: [facility] Address: [address] [place] [address] Result Comment: The [place] [employer] (ADA) [...] 2016.39(Suppl 1). Performed By: #### 1 9123-9, 85765-7 ####[facility] LABORATORYCLIA [id number] [place] [address] [place] Potassium [Moles/Vol] 4.1 mmol/L Normal 3.7-5.1 [facility] Comment on above: Order Comment: Speci men Type: BLOOD SPECIMENOrdering Facility: [facility] Address: [address] [place] [address] Performed By: #### 1 9123-9, 11123-7 ####[facility] LABORATORYCLIA [id number] [place] [address] [place] Sodium [Moles/Vol] 139 mmol/L Normal 136-144 [facility] Comment on above: Order Comment: Speci men Type: BLOOD SPECIMENOrdering Facility: [facility] Address: [address] [place] [address] Performed By: #### 1 9123-9-2 ####[facility] LABORATORYCLIA [id number] [place] [address] [place] Urea nitrogen [Mass/Vol] 26 mg/dL High 9-24 [facility] Comment on above: Order Comment: Speci men Type: BLOOD SPECIMENOrdering Facility: [facility] Address: [address] [place] [address] Performed By: #### 1 9123-9, 10120-8 ####[facility] LABORATORYCLIA [id number] [address] OF [facility] CASE MANAGEMon 06-23-2021 CASE MANAGEM Normal [facility] CBC panel Auto (Bld)on 06-23 Erythrocyte distribution width (RBC) [Ratio] 16.0 % High 11.5-15.0 [facility] Comment on above: Order Comment: Speci men Type: BLOOD SPECIMENOrdering Facility: [facility] Address: [address] [place] [address] Performed By: #### 5 8410-2 ####[facility] LABORATORYCLIA [id number] [address] STATES OF [facility] Hematocrit (Bld) [Volume fraction] 31.1 % Low 39.0-51.0 [facility] Comment on above: Order Comment: Speci men Type: BLOOD SPECIMENOrdering Facility: [facility] Address: [address] [place] [address] Performed By: #### 5 8410-2 ####[facility] LABORATORYCLIA [id number] [place] [address] [place] Hemoglobin (Bld) [Mass/Vol] 9.5 g/dL Low 13.0-17.0 [facility] Comment on above: Order Comment: Speci men Type: BLOOD SPECIMENOrdering Facility: [facility] Address: [address] [place] [address] Performed By: #### 5 8410-2 ####[facility] LABORATORYCLIA [id number] [place] [address] [place] MCH (RBC) [Entitic mass] 28.1 pg Normal 26.0-34.0 [facility] Comment on above: Order Comment: Speci men Type: BLOOD SPECIMENOrdering Facility: [facility] Address: [address] [place] [address] Performed By: #### 5 8410-2 ####[facility] LABORATORYCLIA [id number] [address] MCHC (RBC) [Mass/Vol] 30.5 g/dL Normal 30.5-36.0 [facility] Comment on above: Order Comment: Speci men Type: BLOOD SPECIMENOrdering Facility: [facility] Address: [address] [place] [address] Performed By: #### 5 8410-2 ####[facility] LABORATORYCLIA [id number] [address] MCV (RBC) [Entitic vol] 92.0 fL Normal 80.0-100.0 [facility] Comment on above: Order Comment: Speci men Type: BLOOD SPECIMENOrdering Facility: [facility] Address: [address] [place] [address] Performed By: #### 5 8410-2 ####[facility] LABORATORYCLIA [id number] [address] Nucleated RBC (Bld) [#/Vol] 10*3/uL Normal <0.01 [facility] Comment on above: Order Comment: Speci men Type: BLOOD SPECIMENOrdering Facility: [facility] Address: [address] [place] [address] Performed By: #### 5 8410-2 ####[facility] LABORATORYCLIA [id number] [address] Platelet mean volume (Bld) [Entitic vol] 11.0 fL Normal 9.0-12.7 [facility] Comment on above: Order Comment: Speci men Type: BLOOD SPECIMENOrdering Facility: [facility] Address: [address] [place] [address] Performed By: #### 5 8410-2 ####[facility] LABORATORYCLIA [id number] [place] [address] [place] Platelets (Bld) [#/Vol] 361 10*3/uL Normal 150-400 [facility] Comment on above: Order Comment: Speci men Type: BLOOD SPECIMENOrdering Facility: [facility] Address: [address] [place] [address] Performed By: #### 5 8410-2 ####[facility] LABORATORYCLIA [id number] [place] [address] [place] RBC (Bld) [#/Vol] 3.38 10*6/uL Low 4.20-6.00 [facility] Comment on above: Order Comment: Speci men Type: BLOOD SPECIMENOrdering Facility: [facility] Address: [address] [place] [address] Performed By: #### 5 8410-2 ####[facility] LABORATORYCLIA [id number] [address] OF [facility] WBC (Bld) [#/Vol] 9.02 10*3/uL Normal 3.70-11.00 [facility] Comment on above: Order Comment: Speci men Type: BLOOD SPECIMENOrdering Facility: [facility] Address: [address] [place] [address] Performed By: #### 5 8410-2 ####[facility] LABORATORYCLIA [id number] [address] [place] CONSULT PROGon 06-23-2021 CONSULT PROG Normal [facility] CONSULT PROG Normal [facility] Magnesium SerPl-mCncon 06-23 Magnesium [Mass/Vol] 2.4 mg/dL High 1.7-2.3 [facility] Comment on above: Order Comment: Speci men Type: BLOOD SPECIMENOrdering Facility: [facility] Address: [address] [place] [address] Performed By: #### 1 9123-9, 54882-8 ####[facility] LABORATORYCLIA [id number] [address] [place] THERAPY NTon 06-23-2021 THERAPY NT Normal [facility] Vancomycin random [Mass/Vol] on 06-23-2021 Vancomycin [Mass/Vol] 22.8 ug/mL High 10.0-20.0 [facility] Comment on above: Order Comment: Speci men Type: BLOOD SPECIMENOrdering Facility: [facility] Address: [address] [place] [address] Result Comment: Refe rence ranges and high/low indicator flags are provided as general guidelines only. The treating physician must determine appropriate target levels/dosing based on the specific clinical situation. Performed By: #### 4 091-5 ####[facility] LABORATORYCLIA [id number] [address] [place] XR MOD BARIUM SWALLOW W SPEE Lore 06-23-2021 XR MOD BARIUM SWALLOW W SPEECH Normal [facility] Basic metabolic 2000 panelon 06-22-2021 Anion gap [Moles/Vol] 6 mmol/L Low 9-18 [facility] Comment on above: Order Comment: Speci men Type: BLOOD SPECIMENOrdering Facility: [facility] Address: [address] [place] [address] Performed By: #### 2 4321-2, 35169-5 ####[facility] LABORATORYCLIA [id number] [place] [address] [place] Calcium [Mass/Vol] 8.5 mg/dL Normal 8.5-10.2 [facility] Comment on above: Order Comment: Speci men Type: BLOOD SPECIMENOrdering Facility: [facility] Address: [address] [place], [place] [address] Performed By: #### 2 4321-2, ####[facility] LABORATORYCLIA [id number] [place] [address] [place] Chloride [Moles/Vol] 105 mmol/L Normal 97-105 [facility] Comment on above: Order Comment: Speci men Type: BLOOD SPECIMENOrdering Facility: [facility] Address: [address] [place], [place] [address] [address] Performed By: #### 2 4321-2, ####[facility] LABORATORYCLIA [id number] [address] [place] CO2 [Moles/Vol] 26 mmol/L Normal 22-30 [facility] Comment on above: Order Comment: Speci men Type: BLOOD SPECIMENOrdering Facility: [facility] Address: [address] [place] [address] Performed By: #### 2 43205-08, ####[facility] LABORATORYCLIA [id number] [address] STATES [place] Creatinine [Mass/Vol] 0.56 mg/dL Low 0.73-1.22 [facility] Comment on above: Order Comment: Speci men Type: BLOOD SPECIMENOrdering Facility: [facility] Address: [address] [place] [address] Performed By: #### 2 43205-08, ####[facility] LABORATORYCLIA [id number] [address] [place] GFR/1.73 sq M.predicted MDRD (S/P/Bld) [Vol rate/Area] mL/min/{1.73_m2} Normal [facility] Comment on above: Order Comment: Speci men Type: BLOOD SPECIMENOrdering Facility: [facility] Address: [address] [place] [address] Result Comment: >60e GFR (Estimated GFR) Units [...] reflect actual GFR. Performed By: #### 2 ####[facility] LABORATORYCLIA [id number] [place] [address] [place] Glucose [Mass/Vol] 120 mg/dL High 74-99 [facility] Comment on above: Order Comment: Speci men Type: BLOOD SPECIMENOrdering Facility: [facility] Address: [address] [place] [address] Result Comment: The [employer] (ADA) [...] Care. 2016.39(Suppl 1). Performed By: #### 2 ####[facility] LABORATORYCLIA [id number] [place] [address] [place] Potassium [Moles/Vol] 4.0 mmol/L Normal 3.7-5.1 [facility] Comment on above: Order Comment: Speci men Type: BLOOD SPECIMENOrdering Facility: [facility] Address: [address] [place], [place] [address] Performed By: #### 2 ####[facility] LABORATORYCLIA [id number] [place] [id number] [place] Sodium [Moles/Vol] 137 mmol/L Normal 136-144 [facility] Comment on above: Order Comment: Speci men Type: BLOOD SPECIMENOrdering Facility: [facility] Address: [address] [place], [place] [address] Performed By: #### 2 ####[facility]ORATORYCLIA [id number] [address] [place] Urea nitrogen [Mass/Vol] 25 mg/dL High 9-24 [facility] Comment on above: Order Comment: Speci men Type: BLOOD SPECIMENOrdering Facility: [facility] Address: [address] [place] [address] Performed By: #### 2 4321-2, 51252-8 ####[facility] LABORATORYCLIA [id number] [address] [place] CASE MANAGEMon 06-22-2021 CASE MANAGEM Normal [facility] CBC panel Auto (Bld)on 06-22 Erythrocyte distribution width (RBC) [Ratio] 16.0 % High 11.5-15.0 [facility] Comment on above: Order Comment: Speci men Type: BLOOD SPECIMENOrdering Facility: [facility] Address: [address] [place] [address] Performed By: #### 5 8410-2 ####[facility] LABORATORYCLIA [id number] [address] [place] Hematocrit (Bld) [Volume fraction] 30.5 % Low 39.0-51.0 [facility] Comment on above: Order Comment: Speci men Type: BLOOD SPECIMENOrdering Facility: [facility] Address: [address] [place] [address] Performed By: #### 5 8410-2 ####[facility]ORATORYCLIA [id number] [address] [place] Hemoglobin (Bld) [Mass/Vol] 9.3 g/dL Low 13.0-17.0 [facility] Comment on above: Order Comment: Speci men Type: BLOOD SPECIMENOrdering Facility: [facility] Address: [address] [place] [address] Performed By: #### 5 8410-2 ####[facility]ORATORYCLIA [id number] [address] [place] MCH (RBC) [Entitic mass] 28.4 pg Normal 26.0-34.0 [facility] Comment on above: Order Comment: Speci men Type: BLOOD SPECIMENOrdering Facility: [facility] Address: [address] [place] [address] Performed By: #### 5 8410-2 ####[facility]ORATORYCLIA [id number] [address] MCHC (RBC) [Mass/Vol] 30.5 g/dL Normal 30.5-36.0 [facility] Comment on above: Order Comment: Speci men Type: BLOOD SPECIMENOrdering Facility: [facility] Address: [address] [place] [address] Performed By: #### 5 8410-2 ####[facility] LABORATORYCLIA [id number] [address] MCV (RBC) [Entitic vol] 93.3 fL Normal 80.0-100.0 [facility] Comment on above: Order Comment: Speci men Type: BLOOD SPECIMENOrdering Facility: [facility] Address: [address] [place] [address] Performed By: #### 5 8410-2 ####[facility] LABORATORYCLIA [id number] [address] Nucleated RBC (Bld) [#/Vol] 10*3/uL Normal <0.01 [facility] Comment on above: Order Comment: Speci men Type: BLOOD SPECIMENOrdering Facility: [facility] Address: [address] [place] [address] Performed By: #### 5 8410-2 ####[facility] LABORATORYCLIA [id number] [address] Platelet mean volume (Bld) [Entitic vol] 11.5 fL Normal 9.0-12.7 [facility] Comment on above: Order Comment: Speci men Type: BLOOD SPECIMENOrdering Facility: [facility] Address: [address] [place] [address] Performed By: #### 5 8410-2 ####[facility] HE[facility] SERVICESCLIA [id number] [address] [place] Platelets (Bld) [#/Vol] 346 10*3/uL Normal 150-400 [facility] Comment on above: Order Comment: Speci men Type: BLOOD SPECIMENOrdering Facility: [facility] Address: [address] [place] [address] Performed By: #### 5 8410-2 ####[facility]ORATORYCLIA [id number] [address] [place] RBC (Bld) [#/Vol] 3.27 10*6/uL Low 4.20-6.00 [facility] Comment on above: Order Comment: Speci men Type: BLOOD SPECIMENOrdering Facility: [facility] Address: [address] [place] [address] Performed By: #### 5 8410-2 ####[facility] SERVICESCLIA [id number] [address] OF [facility] WBC (Bld) [#/Vol] 9.44 10*3/uL Normal 3.70-11.00 [facility] Comment on above: Order Comment: Speci men Type: BLOOD SPECIMENOrdering Facility: [facility] Address: [address] [place] [address] Performed By: #### 5 8410-2 ####[facility]ORATORYCLIA [id number] [address] [place] HEMOGLOBIN (HGB)on Hemoglobin (Bld) [Mass/Vol] 9.7 g/dL Low 13.0-17.0 [facility] Comment on above: Order Comment: Speci men Type: BLOOD SPECIMENOrdering Facility: [facility] Address: [address] [place] [address] Performed By: #### H GB ####[facility] LABORATORYCLIA [id number] [address] [place] Magnesium SerPl-mCncon 06-22 Magnesium [Mass/Vol] 2.4 mg/dL High 1.7-2.3 [facility] Comment on above: Order Comment: Speci men Type: BLOOD SPECIMENOrdering Facility: [facility] Address: [address] [place] [address] Performed By: #### 2 4321-2, ####[facility]ORATORYCLIA [id number] [address] OF [facility] THERAPY NTon 06-22-2021 THERAPY NT Normal [facility] THERAPY NT Normal [facility] aPTT PPPon 06-22-2021 aPTT Coag (PPP) [Time] 62.3 s High 23.0-32.[address] [facility] Comment on above: Order Comment: Speci men Type: BLOOD SPECIMENOrdering Facility: [facility] Address: [address] [place] [address] Performed By: #### 1 4979-9 ####[facility]ORATORYCLIA [id number] [address] [place] ALLIED HEALTHon 06-21-2021 ALLIED HEALTH Normal [facility] Basic metabolic 2000 panelon 06-21-2021 Anion gap [Moles/Vol] 8 mmol/L Low 9-18 [facility] Comment on above: Order Comment: Speci men Type: BLOOD SPECIMENOrdering Facility: [facility] Address: [address] [place] [address] Performed By: #### 2 4321-2, ####[facility]ORATORYCLIA [id number] [place] [address] [place] Calcium [Mass/Vol] 8.2 mg/dL Low 8.5-10.2 [facility] Comment on above: Order Comment: Speci men Type: BLOOD SPECIMENOrdering Facility: [facility] Address: [address] [place] [address] Performed By: #### 2 4321-2, ####[facility]ORATORYCLIA [id number] [place] [address] [place] Chloride [Moles/Vol] 108 mmol/L High 97-105 [facility] Comment on above: Order Comment: Speci men Type: BLOOD SPECIMENOrdering Facility: [facility] Address: [address] [place] [address] Performed By: #### 2 4321-2, ####[facility]ORATORYCLIA [id number] [place] [address] [place] CO2 [Moles/Vol] 24 mmol/L Normal 22-30 [facility] Comment on above: Order Comment: Speci men Type: BLOOD SPECIMENOrdering Facility: [facility] Address: [address] [place] [address] Performed By: #### 2 43205-08, ####[facility]ORATORYCLIA [id number] [address] [place] Creatinine [Mass/Vol] 0.61 mg/dL Low 0.73-1.22 [facility] Comment on above: Order Comment: Speci men Type: BLOOD SPECIMENOrdering Facility: [facility] Address: [address] [place] [address] Performed By: #### 2 43205-08, ####[facility]ORATORYCLIA [id number] [address] [place] GFR/1.73 sq M.predicted MDRD (S/P/Bld) [Vol rate/Area] mL/min/{1.73_m2} Normal [facility] Comment on above: Order Comment: Speci men Type: BLOOD SPECIMENOrdering Facility: [facility] Address: [address] [place] [address] Result Comment: >60e GFR (Estimated GFR) Units [...] actual GFR. Performed By: #### 2 4321-, 71343-9 ####[facility] LABORATORYCLIA [id number] [place] [address] [place] Glucose [Mass/Vol] 211 mg/dL High 74-99 [facility] Comment on above: Order Comment: Shira feldman Type: BLOOD SPECIMENOrdering Facility: [facility] Address: [address] [place] [phone] Result Comment: The [place] [employer] (ADA) [...] 2016.39(Suppl 1). Performed By: #### 2 432-, ####[facility]ORATORYCLIA [id number] [place] [address] [place] Potassium [Moles/Vol] 4.3 mmol/L Normal 3.7-5.1 [facility] Comment on above: Order Comment: Shira feldman Type: BLOOD SPECIMENOrdering Facility: [facility] Address: [address] [phone] Performed By: #### 2 432-, ####[facility]ORATORYCLIA [id number] [place] [address] [place] Sodium [Moles/Vol] 140 mmol/L Normal 136-144 [facility] Comment on above: Order Comment: Shira feldman Type: BLOOD SPECIMENOrdering Facility: [facility] Address: [address] [address] Performed By: #### 2 4321-2, ####[facility]ORATORYCLIA [id number] [address] STATES [facility] Urea nitrogen [Mass/Vol] 26 mg/dL High 9-24 [facility] Comment on above: Order Comment: Speci men Type: BLOOD SPECIMENOrdering Facility: [facility] Address: [address] [place] [address] Performed By: #### 2 4321-2, ####[facility]ORATORYCLIA [id number] [address] CBC panel Auto (Bld)on 06-21 Erythrocyte distribution width (RBC) [Ratio] 16.1 % High 11.5-15.0 [facility] Comment on above: Order Comment: Speci men Type: BLOOD SPECIMENOrdering Facility: [facility] Address: [address] [place] [address] Performed By: #### 5 8410-2 ####[facility]ORATORYCLIA [id number] [address] Hematocrit (Bld) [Volume fraction] 29.7 % Low 39.0-51.0 [facility] Comment on above: Order Comment: Speci men Type: BLOOD SPECIMENOrdering Facility: [facility] Address: [address] [place] [address] Performed By: #### 5 8410-2 ####[facility]ORATORYCLIA [id number] [address] STATES OF [facility] Hemoglobin (Bld) [Mass/Vol] 9.2 g/dL Low 13.0-17.0 [facility] Comment on above: Order Comment: Speci men Type: BLOOD SPECIMENOrdering Facility: [facility] Address: [address] [place] [address] Performed By: #### 5 8410-2 ####[facility]ORATORYCLIA [id number] [place] [address] MCH (RBC) [Entitic mass] 28.8 pg Normal 26.0-34.0 [facility] Comment on above: Order Comment: Speci men Type: BLOOD SPECIMENOrdering Facility: [facility] Address: [address] [place] [address] Performed By: #### 5 8410-2 ####[facility]ORATORYCLIA [id number] [address] MCHC (RBC) [Mass/Vol] 31.0 g/dL Normal 30.5-36.0 [facility] Comment on above: Order Comment: Speci men Type: BLOOD SPECIMENOrdering Facility: [facility] Address: [address] [place] [address] Performed By: #### 5 8410-2 ####[facility]ORATORYCLIA [id number] [address] MCV (RBC) [Entitic vol] 93.1 fL Normal 80.0-100.0 [facility] Comment on above: Order Comment: Speci men Type: BLOOD SPECIMENOrdering Facility: [facility] Address: [address] [place] [address] Performed By: #### 5 8410-2 ####[facility]ORATORYCLIA [id number] [address] Nucleated RBC (Bld) [#/Vol] 10*3/uL Normal <0.01 [facility] Comment on above: Order Comment: Speci men Type: BLOOD SPECIMENOrdering Facility: [facility] Address: [address] [place] [address] Performed By: #### 5 8410-2 ####[facility]ORATORYCLIA [id number] [address] Platelet mean volume (Bld) [Entitic vol] 11.6 fL Normal 9.0-12.7 [facility] Comment on above: Order Comment: Speci men Type: BLOOD SPECIMENOrdering Facility: [facility] Address: [address] [place] [address] Performed By: #### 5 8410-2 ####[facility] LABORATORYCLIA [id number] [address] OF [facility] Platelets (Bld) [#/Vol] 347 10*3/uL Normal 150-400 [facility] Comment on above: Order Comment: Speci men Type: BLOOD SPECIMENOrdering Facility: [facility] Address: [address] [place] [address] Performed By: #### 5 8410-2 ####[facility]ORATORYCLIA [id number] [address] [place] RBC (Bld) [#/Vol] 3.19 10*6/uL Low 4.20-6.00 [facility] Comment on above: Order Comment: Speci men Type: BLOOD SPECIMENOrdering Facility: [facility] Address: [address] [place] [address] Performed By: #### 5 8410-2 ####[facility]ORATORYCLIA [id number] [address] OF [facility] WBC (Bld) [#/Vol] 10.29 10*3/uL Normal 3.70-11.00 [facility] Comment on above: Order Comment: Speci men Type: BLOOD SPECIMENOrdering Facility: [facility] Address: [address] [place] [address] Performed By: #### 5 8410-2 ####[facility]ORATORYCLIA [id number] [address] CONSULT PROGon 06-21-2021 CONSULT PROG Normal [facility] CONSULT PROG Normal [facility] Magnesium SerPl-mCncon 06-21 Magnesium [Mass/Vol] 2.5 mg/dL High 1.7-2.3 [facility] Comment on above: Order Comment: Speci men Type: BLOOD SPECIMENOrdering Facility: [facility] Address: [address] [place] [address] Performed By: #### 2 4321-2, 35687-1 ####[facility]ORATORYCLIA [id number] [place] [address] [place] NUTRITIONon 06-21-2021 NUTRITION Normal [facility] XR CHEST 1V FRONTALon 2021 XR CHEST 1V FRONTAL Normal [facility] aPTT PPPon 06-21-2021 aPTT Coag (PPP) [Time] 68.5 s High 23.0-32.[address] [facility] Comment on above: Order Comment: Speci men Type: BLOOD SPECIMENOrdering Facility: [facility] Address: [address] [place] [address] Performed By: #### 1 4979-9 ####[facility]ORATORYCLIA [id number] [address] STATES OF [facility] aPTT Coag (PPP) [Time] 57.8 s High 23.0-32.[address] [facility] Comment on above: Order Comment: Speci men Type: BLOOD SPECIMENOrdering Facility: [facility] Address: [address] [place] [address] Performed By: #### 1 4979-9 ####[facility]ORATORYCLIA [id number] [place] [address] [place] Basic metabolic 2000 panelon 06-20-2021 Anion gap [Moles/Vol] 9 mmol/L Normal 9-18 [facility] Comment on above: Order Comment: Speci men Type: BLOOD SPECIMENOrdering Facility: [facility] Address: [address] [place] [address] Performed By: #### 2 4321-2, 35484-8 ####[facility]ORATORYCLIA [id number] [address] [place] Calcium [Mass/Vol] 8.3 mg/dL Low 8.5-10.2 [facility] Comment on above: Order Comment: Speci men Type: BLOOD SPECIMENOrdering Facility: [facility] Address: [address] [place] [address] Performed By: #### 2 432-2, ####[facility]ORATORYCLIA [id number] [place] [address] [place] Chloride [Moles/Vol] 111 mmol/L High 97-105 [facility] Comment on above: Order Comment: Speci men Type: BLOOD SPECIMENOrdering Facility: [facility] Address: [address] [place] [address] Performed By: #### 2 432-2, ####[facility]ORATORYCLIA [id number] [place] [address] [place] CO2 [Moles/Vol] 24 mmol/L Normal 22-30 [facility] Comment on above: Order Comment: Speci men Type: BLOOD SPECIMENOrdering Facility: [facility] Address: [address] [place] [address] Performed By: #### 2 43205-08, ####[facility]ORATORYCLIA [id number] [address] [place] Creatinine [Mass/Vol] 0.64 mg/dL Low 0.73-1.22 [facility] Comment on above: Order Comment: Speci men Type: BLOOD SPECIMENOrdering Facility: [facility] Address: [address] [place] [address] Performed By: #### 2 43205-08, ####[facility]ORATORYCLIA [id number] [place] [address] [place] GFR/1.73 sq M.predicted MDRD (S/P/Bld) [Vol rate/Area] mL/min/{1.73_m2} Normal [facility] Comment on above: Order Comment: Speci men Type: BLOOD SPECIMENOrdering Facility: [facility] Address: [address] [place] [address] Result Comment: >60e GFR (Estimated GFR) Units [...] actual GFR. Performed By: #### 2 43205-08, ####[facility]ORATORYCLIA [id number] [place] [address] [place] Glucose [Mass/Vol] 114 mg/dL High 74-99 [facility] Comment on above: Order Comment: Shira feldman Type: BLOOD SPECIMENOrdering Facility: [facility] Address: [address] [phone] Result Comment: The [place] [employer] (ADA) [...] 2016.39(Suppl 1). Performed By: #### 2 4320-06, ####[facility] LABORATORYCLIA [id number] [place] [address] [place] Potassium [Moles/Vol] 4.1 mmol/L Normal 3.7-5.1 [facility] Comment on above: Order Comment: Shira feldman Type: BLOOD SPECIMENOrdering Facility: [facility] Address: [address] [phone] Performed By: #### 2 43205-08, ####[facility] LABORATORYCLIA [id number] [place] [address] [place] Sodium [Moles/Vol] 144 mmol/L Normal 136-144 [facility] Comment on above: Order Comment: Speci men Type: BLOOD SPECIMENOrdering Facility: [facility] Address: [address] [place] [address] Performed By: #### 2 4321-2, ####[facility] LABORATORYCLIA [id number] [address] STATES OF [facility] Urea nitrogen [Mass/Vol] 27 mg/dL High 9-24 [facility] Comment on above: Order Comment: Speci men Type: BLOOD SPECIMENOrdering Facility: [facility] Address: [address] [place] [address] Performed By: #### 2 432-2, ####[facility] LABORATORYCLIA [id number] [address] OF [facility] CASE MANAGEMon 06-20-2021 CASE MANAGEM Normal [facility] CBC panel Auto (Bld)on 06-20 Erythrocyte distribution width (RBC) [Ratio] 15.9 % High 11.5-15.0 [facility] Comment on above: Order Comment: Speci men Type: BLOOD SPECIMENOrdering Facility: [facility] Address: [address] [place] [address] Performed By: #### 5 8410-2 ####[facility] LABORATORYCLIA [id number] [address] [place] Hematocrit (Bld) [Volume fraction] 31.0 % Low 39.0-51.0 [facility] Comment on above: Order Comment: Speci men Type: BLOOD SPECIMENOrdering Facility: [facility] Address: [address] [place] [address] Performed By: #### 5 8410-2 ####[facility]ORATORYCLIA [id number] [address] [place] Hemoglobin (Bld) [Mass/Vol] 9.2 g/dL Low 13.0-17.0 [facility] Comment on above: Order Comment: Speci men Type: BLOOD SPECIMENOrdering Facility: [facility] Address: [address] [place] [address] Performed By: #### 5 8410-2 ####[facility] LABORATORYCLIA [id number] [address] MCH (RBC) [Entitic mass] 27.4 pg Normal 26.0-34.0 [facility] Comment on above: Order Comment: Speci men Type: BLOOD SPECIMENOrdering Facility: [facility] Address: [address] [place] [address] Performed By: #### 5 8410-2 ####[facility] LABORATORYCLIA [id number] [address] MCHC (RBC) [Mass/Vol] 29.7 g/dL Low 30.5-36.0 [facility] Comment on above: Order Comment: Speci men Type: BLOOD SPECIMENOrdering Facility: [facility] Address: [address] [place] [address] Performed By: #### 5 8410-2 ####[facility] LABORATORYCLIA [id number] [address] MCV (RBC) [Entitic vol] 92.3 fL Normal 80.0-100.0 [facility] Comment on above: Order Comment: Speci men Type: BLOOD SPECIMENOrdering Facility: [facility] Address: [address] [place] [address] Performed By: #### 5 8410-2 ####[facility]ORATORYCLIA [id number] [address] Nucleated RBC (Bld) [#/Vol] 10*3/uL Normal <0.01 [facility] Comment on above: Order Comment: Speci men Type: BLOOD SPECIMENOrdering Facility: [facility] Address: [address] [place] [address] Performed By: #### 5 8410-2 ####[facility]ORATORYCLIA [id number] [address] Platelet mean volume (Bld) [Entitic vol] 11.5 fL Normal 9.0-12.7 [facility] Comment on above: Order Comment: Speci men Type: BLOOD SPECIMENOrdering Facility: [facility] Address: [address] [place] [address] Performed By: #### 5 8410-2 ####[facility] LABORATORYCLIA [id number] [address] [place] Platelets (Bld) [#/Vol] 343 10*3/uL Normal 150-400 [facility] Comment on above: Order Comment: Speci men Type: BLOOD SPECIMENOrdering Facility: [facility] Address: [address] [place] [address] Performed By: #### 5 8410-2 ####[facility]ORATORYCLIA [id number] [address] RBC (Bld) [#/Vol] 3.36 10*6/uL Low 4.20-6.00 [facility] Comment on above: Order Comment: Speci men Type: BLOOD SPECIMENOrdering Facility: [facility] Address: [address] [place] [address] Performed By: #### 5 8410-2 ####[facility] LABORATORYCLIA [id number] [address] WBC (Bld) [#/Vol] 10.71 10*3/uL Normal 3.70-11.00 [facility] Comment on above: Order Comment: Speci men Type: BLOOD SPECIMENOrdering Facility: [facility] Address: [address] [place] [address] Performed By: #### 5 8410-2 ####[facility] LABORATORYCLIA [id number] [address] CONSULT PROGon 06-20-2021 CONSULT PROG Normal [facility] HEMOGLOBIN (HGB)on 2 Hemoglobin (Bld) [Mass/Vol] 9.7 g/dL Low 13.0-17.0 [facility] Comment on above: Order Comment: Speci men Type: BLOOD SPECIMENOrdering Facility: [facility] Address: [address] [place] [address] Performed By: #### H GB ####[facility] LABORATORYCLIA [id number] [address] [place] Magnesium SerPl-mCncon 06-20 Magnesium [Mass/Vol] 2.5 mg/dL High 1.7-2.3 [facility] Comment on above: Order Comment: Speci men Type: BLOOD SPECIMENOrdering Facility: [facility] Address: [address] [place] [address] Performed By: #### 2 4321-2, 33233-5 ####[facility] LABORATORYCLIA [id number] [address] [place] NURSING PROGon 06-20-2021 NURSING PROG Normal [facility] THERAPY NTon 06-20-2021 THERAPY NT Normal [facility] aPTT PPPon 06-20-2021 aPTT Coag (PPP) [Time] 93.5 s High 23.0-32.[address] [facility] Comment on above: Order Comment: Speci men Type: BLOOD SPECIMENOrdering Facility: [facility] Address: [address] [place] [address] Performed By: #### 1 4979-9 ####[facility] LABORATORYCLIA [id number] [address] STATES [facility] aPTT Coag (PPP) [Time] 47.1 s High 23.0-32.[address] [facility] Comment on above: Order Comment: Speci men Type: BLOOD SPECIMENOrdering Facility: [facility] Address: [address] [place] [address] Performed By: #### 1 4979-9 ####[facility] LABORATORYCLIA [id number] [place] [address] [place] Basic metabolic 2000 panelon 06-19-2021 Anion gap [Moles/Vol] 7 mmol/L Low 9-18 [facility] Comment on above: Order Comment: Speci men Type: BLOOD SPECIMENOrdering Facility: [facility] Address: [address] [place] [address] Performed By: #### 2 4321-2 ####[facility]ORATORYCLIA [id number] [place] [address] [place] Calcium [Mass/Vol] 8.1 mg/dL Low 8.5-10.2 [facility] Comment on above: Order Comment: Speci men Type: BLOOD SPECIMENOrdering Facility: [facility] Address: [address] [place] [address] Performed By: #### 2 4321-2 ####[facility] LABORATORYCLIA [id number] [place] [address] [place] Chloride [Moles/Vol] 111 mmol/L High 97-105 [facility] Comment on above: Order Comment: Speci men Type: BLOOD SPECIMENOrdering Facility: [facility] Address: [address] [place] [address] Performed By: #### 2 4321-2 ####[facility] LABORATORYCLIA [id number] [place] [address] [place] CO2 [Moles/Vol] 24 mmol/L Normal 22-30 [facility] Comment on above: Order Comment: Speci men Type: BLOOD SPECIMENOrdering Facility: [facility] Address: [address] [place] [address] Performed By: #### 2 4321-2 ####[facility] LABORATORYCLIA [id number] [place] [address] [place] Creatinine [Mass/Vol] 0.71 mg/dL Low 0.73-1.22 [facility] Comment on above: Order Comment: Speci men Type: BLOOD SPECIMENOrdering Facility: [facility] Address: [address] [place] [address] Performed By: #### 2 4321-2 ####[facility]ORATORYCLIA [id number] [place] [address] [place] GFR/1.73 sq M.predicted MDRD (S/P/Bld) [Vol rate/Area] mL/min/{1.73_m2} Normal [facility] Comment on above: Order Comment: Shira feldman Type: BLOOD SPECIMENOrdering Facility: [facility] Address: [address] [place] [address] Result Comment: >60e GFR (Estimated GFR) Units [...] 2 4321-2 ####[facility] SERVICESCLIA [id number] [place] [address] [place] Glucose [Mass/Vol] 110 mg/dL High 74-99 [facility] Comment on above: Order Comment: Shira feldman Type: BLOOD SPECIMENOrdering Facility: [facility] Address: [address] [place] [address] Result Comment: The [employer] (ADA) [...] 2016.39(Suppl 1). Performed By: #### 2 4321-2 ####[facility] LABORATORYCLIA [id number] [address] [place] Potassium [Moles/Vol] 3.7 mmol/L Normal 3.7-5.1 [facility] Comment on above: Order Comment: Speci men Type: BLOOD SPECIMENOrdering Facility: [facility] Address: [address] [place] [address] Performed By: #### 2 4321-2 ####[facility] LABORATORYCLIA [id number] [address] [place] Sodium [Moles/Vol] 142 mmol/L Normal 136-144 [facility] Comment on above: Order Comment: Speci men Type: BLOOD SPECIMENOrdering Facility: [facility] Address: [address] [place] [address] Performed By: #### 2 4321-2 ####[facility] LABORATORYCLIA [id number] [address] STATES [facility] Urea nitrogen [Mass/Vol] 26 mg/dL High 9-24 [facility] Comment on above: Order Comment: Speci men Type: BLOOD SPECIMENOrdering Facility: [facility] Address: [address] [place] [address] Performed By: #### 2 4321-2 ####[facility] LABORATORYCLIA [id number] [address] STATES OF [facility] CBC panel Auto (Bld)on 06-19 Erythrocyte distribution width (RBC) [Ratio] 15.7 % High 11.5-15.0 [facility] Comment on above: Order Comment: Speci men Type: BLOOD SPECIMENOrdering Facility: [facility] Address: [address] [place] [address] Performed By: #### 5 8410-2 ####[facility] LABORATORYCLIA [id number] [address] Hematocrit (Bld) [Volume fraction] 30.9 % Low 39.0-51.0 [facility] Comment on above: Order Comment: Speci men Type: BLOOD SPECIMENOrdering Facility: [facility] Address: [address] [place] [address] Performed By: #### 5 8410-2 ####[facility] LABORATORYCLIA [id number] [address] OF [facility] Hemoglobin (Bld) [Mass/Vol] 9.5 g/dL Low 13.0-17.0 [facility] Comment on above: Order Comment: Speci men Type: BLOOD SPECIMENOrdering Facility: [facility] Address: [address] [place] [address] Performed By: #### 5 8410-2 ####[facility]ORATORYCLIA [id number] [address] MCH (RBC) [Entitic mass] 28.4 pg Normal 26.0-34.0 [facility] Comment on above: Order Comment: Speci men Type: BLOOD SPECIMENOrdering Facility: [facility] Address: [address] [place] [address] Performed By: #### 5 8410-2 ####[facility] LABORATORYCLIA [id number] [address] STATES OF [facility] MCHC (RBC) [Mass/Vol] 30.7 g/dL Normal 30.5-36.0 [facility] Comment on above: Order Comment: Speci men Type: BLOOD SPECIMENOrdering Facility: [facility] Address: [address] [place] [address] Performed By: #### 5 8410-2 ####[facility]ORATORYCLIA [id number] [address] STATES [facility] MCV (RBC) [Entitic vol] 92.2 fL Normal 80.0-100.0 [facility] Comment on above: Order Comment: Speci men Type: BLOOD SPECIMENOrdering Facility: [facility] Address: [address] [place] [address] Performed By: #### 5 8410-2 ####[facility]ORATORYCLIA [id number] [address] Nucleated RBC (Bld) [#/Vol] 10*3/uL Normal <0.01 [facility] Comment on above: Order Comment: Speci men Type: BLOOD SPECIMENOrdering Facility: [facility] Address: [address] [place] [address] Performed By: #### 5 8410-2 ####[facility] LABORATORYCLIA [id number] [place] [address] [place] Platelet mean volume (Bld) [Entitic vol] 11.7 fL Normal 9.0-12.7 [facility] Comment on above: Order Comment: Speci men Type: BLOOD SPECIMENOrdering Facility: [facility] Address: [address] [place] [address] Performed By: #### 5 8410-2 ####[facility] LABORATORYCLIA [id number] [address] [place] Platelets (Bld) [#/Vol] 323 10*3/uL Normal 150-400 [facility] Comment on above: Order Comment: Speci men Type: BLOOD SPECIMENOrdering Facility: [facility] Address: [address] [place] [address] Performed By: #### 5 8410-2 ####[facility] LABORATORYCLIA [id number] [place] [address] [place] RBC (Bld) [#/Vol] 3.35 10*6/uL Low 4.20-6.00 [facility] Comment on above: Order Comment: Speci men Type: BLOOD SPECIMENOrdering Facility: [facility] Address: [address] [place], [place] [address] Performed By: #### 5 8410-2 ####[facility] LABORATORYCLIA [id number] [address] [place] WBC (Bld) [#/Vol] 9.53 10*3/uL Normal 3.70-11.00 [facility] Comment on above: Order Comment: Speci men Type: BLOOD SPECIMENOrdering Facility: [facility] Address: [address] [place] [address] Performed By: #### 5 8410-2 ####[facility] LABORATORYCLIA [id number] [address] HEMOGLOBIN (HGB)on Hemoglobin (Bld) [Mass/Vol] 9.7 g/dL Low 13.0-17.0 [facility] Comment on above: Order Comment: Speci men Type: BLOOD SPECIMENOrdering Facility: [facility] Address: [address] [place] [address] Performed By: #### H GB ####[facility]ORATORYCLIA [id number] [address] Magnesium SerPl-mCncon 06-19 Magnesium [Mass/Vol] 2.5 mg/dL High 1.7-2.3 [facility] Comment on above: Order Comment: Speci men Type: BLOOD SPECIMENOrdering Facility: [facility] Address: [address] [place] [address] Performed By: #### 1 9123-9, 2777-1 ####[facility]ORATORYCLIA [id number] [address] NURSING PROGon 06-19-2021 NURSING PROG Normal [facility] Phosphate SerPl-mCncon 06-19 Phosphate [Mass/Vol] 2.6 mg/dL Low 2.7-4.8 [facility] Comment on above: Order Comment: Speci men Type: BLOOD SPECIMENOrdering Facility: [facility] Address: [address] [place] [address] Performed By: #### 1 9123-9, 2777-1 ####[facility]ORATORYCLIA [id number] [address] aPTT PPPon 06-19-2021 aPTT Coag (PPP) [Time] 61.9 s High 23.0-32.[address] [facility] Comment on above: Order Comment: Speci men Type: BLOOD SPECIMENOrdering Facility: [facility] Address: [address] [address] Performed By: #### 1 4979-9 ####[facility]ORATORYCLIA [id number] [address] aPTT Coag (PPP) [Time] 68.6 s High 23.0-32.[address] [facility] Comment on above: Order Comment: Speci men Type: BLOOD SPECIMENOrdering Facility: [facility] Address: [address] [place] [address] Performed By: #### 1 4979-9 ####[facility] LABORATORYCLIA [id number] [address] STATES OF [facility] aPTT Coag (PPP) [Time] 83.2 s High 23.0-32.[address] [facility] Comment on above: Order Comment: Speci men Type: BLOOD SPECIMENOrdering Facility: [facility] Address: [address] [place] [address] Performed By: #### 1 4979-9 ####[facility]ORATORYCLIA [id number] [place] [address] [place] Basic metabolic 2000 panelon 06-18-2021 Anion gap [Moles/Vol] 7 mmol/L Low 9-18 [facility] Comment on above: Order Comment: Speci men Type: BLOOD SPECIMENOrdering Facility: [facility] Address: [address] [place] [address] Performed By: #### 2 4321-2, , 2776-05 ####[facility]ORATORYCLIA [id number] [address] [place] Calcium [Mass/Vol] 8.2 mg/dL Low 8.5-10.2 [facility] Comment on above: Order Comment: Speci men Type: BLOOD SPECIMENOrdering Facility: [facility] Address: [address] [place] [address] Performed By: #### 2 4321-2, , 27711-04 ####[facility] LABORATORYCLIA [id number] [place] [address] [place] Chloride [Moles/Vol] 115 mmol/L High 97-105 [facility] Comment on above: Order Comment: Speci men Type: BLOOD SPECIMENOrdering Facility: [facility] Address: [address] [place] [address] Performed By: #### 2 4321-2, 43337-0, 2776- ####[facility]ORATORYCLIA [id number] [address] [place] CO2 [Moles/Vol] 23 mmol/L Normal 22-30 [facility] Comment on above: Order Comment: Speci men Type: BLOOD SPECIMENOrdering Facility: [facility] Address: [address] [place] [address] Performed By: #### 2 4321-2, , 2776-05 ####[facility] COUNTYIA [id number] [address] [place] Creatinine [Mass/Vol] 0.70 mg/dL Low 0.73-1.22 [facility] Comment on above: Order Comment: Speci men Type: BLOOD SPECIMENOrdering Facility: [facility] Address: [address] [place] [address] Performed By: #### 2 4321-2, , 2776-05 ####[facility] LABORATORYCLIA [id number] [place] [address] [place] GFR/1.73 sq M.predicted MDRD (S/P/Bld) [Vol rate/Area] mL/min/{1.73_m2} Normal [facility] Comment on above: Order Comment: Speci men Type: BLOOD SPECIMENOrdering Facility: [facility] Address: [address] [place] [address] Result Comment: >60e GFR (Estimated GFR) Units [...] Performed By: #### 2 4321-2, , 2776-05 ####[facility] LABORATORYCLIA [id number] [place] [address] [place] Glucose [Mass/Vol] 105 mg/dL High 74-99 [facility] Comment on above: Order Comment: Shira feldman Type: BLOOD SPECIMENOrdering Facility: [facility] Address: [address] [place], [place] [address] Result Comment: The [employer] (ADA) [...] Performed By: #### 2 4321-2, , 2776-05 ####[facility] LABORATORYCLIA [id number] [place] [address] [place] Potassium [Moles/Vol] 4.1 mmol/L Normal 3.7-5.1 [facility] Comment on above: Order Comment: Shira feldman Type: BLOOD SPECIMENOrdering Facility: [facility] Address: [address] [place] [address] Performed By: #### 2 4321-2, , 2776-05 ####[facility] LABORATORYCLIA [id number] [place] [address] [place] Sodium [Moles/Vol] 145 mmol/L High 136-144 [facility] Comment on above: Order Comment: Speci men Type: BLOOD SPECIMENOrdering Facility: [facility] Address: [address] [place] [address] Performed By: #### 2 4321-2, 29955-1, 2776- ####[facility]ORATORYCLIA [id number] [address] [place] Urea nitrogen [Mass/Vol] 27 mg/dL High 9-24 [facility] Comment on above: Order Comment: Speci men Type: BLOOD SPECIMENOrdering Facility: [facility] Address: [address] [place] [address] Performed By: #### 2 4321-2, , 2776-05 ####[facility]ORATORYCLIA [id number] [address] STATES OF [facility] CALCIUM IONIZED Bon 06-18-19 Calcium.ionized (BldV) [Mass/Vol] 1.22 mmol/L Normal 1.08-1.30 [facility] Comment on above: Order Comment: Speci men Type: BLOOD SPECIMENOrdering Facility: [facility] Address: [address] [place] [address] Performed By: #### I CA ####[facility]ORATORYCLIA [id number] [address] Calcium.ionized adjusted to pH 7.4 (Bld) [Moles/Vol] 1.23 mmol/L Normal 1.08-1.30 [facility] Comment on above: Order Comment: Speci men Type: BLOOD SPECIMENOrdering Facility: [facility] Address: [address] [place] [address] Performed By: #### I CA ####[facility] LABORATORYCLIA [id number] [address] [place] CBC panel Auto (Bld)on 06-18 Erythrocyte distribution width (RBC) [Ratio] 15.8 % High 11.5-15.0 [facility] Comment on above: Order Comment: Speci men Type: BLOOD SPECIMENOrdering Facility: [facility] Address: [address] [place] [address] Performed By: #### 5 8410-2 ####[facility] LABORATORYCLIA [id number] [address] Hematocrit (Bld) [Volume fraction] 29.5 % Low 39.0-51.0 [facility] Comment on above: Order Comment: Speci men Type: BLOOD SPECIMENOrdering Facility: [facility] Address: [address] [place] [address] Performed By: #### 5 8410-2 ####[facility]ORATORYCLIA [id number] [address] Hemoglobin (Bld) [Mass/Vol] 8.8 g/dL Low 13.0-17.0 [facility] Comment on above: Order Comment: Speci men Type: BLOOD SPECIMENOrdering Facility: [facility] Address: [address] [place] [address] Performed By: #### 5 8410-2 ####[facility] LABORATORYCLIA [id number] [address] MCH (RBC) [Entitic mass] 27.4 pg Normal 26.0-34.0 [facility] Comment on above: Order Comment: Speci men Type: BLOOD SPECIMENOrdering Facility: [facility] Address: [address] [place] [address] Performed By: #### 5 8410-2 ####[facility] LABORATORYCLIA [id number] [address] [place] MCHC (RBC) [Mass/Vol] 29.8 g/dL Low 30.5-36.0 [facility] Comment on above: Order Comment: Speci men Type: BLOOD SPECIMENOrdering Facility: [facility] Address: [address] [place] [address] Performed By: #### 5 8410-2 ####[facility] LABORATORYCLIA [id number] [address] STATES OF [facility] MCV (RBC) [Entitic vol] 91.9 fL Normal 80.0-100.0 [facility] Comment on above: Order Comment: Speci men Type: BLOOD SPECIMENOrdering Facility: [facility] Address: [address] [place] [address] Performed By: #### 5 8410-2 ####[facility] LABORATORYCLIA [id number] [address] Nucleated RBC (Bld) [#/Vol] 10*3/uL Normal <0.01 [facility] Comment on above: Order Comment: Speci men Type: BLOOD SPECIMENOrdering Facility: [facility] Address: [address] [place] [address] Performed By: #### 5 8410-2 ####[facility] LABORATORYCLIA [id number] [address] Platelet mean volume (Bld) [Entitic vol] 11.9 fL Normal 9.0-12.7 [facility] Comment on above: Order Comment: Speci men Type: BLOOD SPECIMENOrdering Facility: [facility] Address: [address] [place] [address] Performed By: #### 5 8410-2 ####[facility] LABORATORYCLIA [id number] [address] Platelets (Bld) [#/Vol] 291 10*3/uL Normal 150-400 [facility] Comment on above: Order Comment: Speci men Type: BLOOD SPECIMENOrdering Facility: [facility] Address: [address] [place] [address] Performed By: #### 5 8410-2 ####[facility] LABORATORYCLIA [id number] [address] [place] RBC (Bld) [#/Vol] 3.21 10*6/uL Low 4.20-6.00 [facility] Comment on above: Order Comment: Speci men Type: BLOOD SPECIMENOrdering Facility: [facility] Address: [address] [place] [address] Performed By: #### 5 8410-2 ####[facility] LABORATORYCLIA [id number] [address] WBC (Bld) [#/Vol] 10.19 10*3/uL Normal 3.70-11.00 [facility] Comment on above: Order Comment: Speci men Type: BLOOD SPECIMENOrdering Facility: [facility] Address: [address] [place] [address] Performed By: #### 5 8410-2 ####[facility] LABORATORYCLIA [id number] [address] FERRITIN BLDon 06-18-2021 Ferritin [Mass/Vol] 600.9 ng/mL High 30.3-565.7 [facility] Comment on above: Order Comment: Speci men Type: BLOOD SPECIMENOrdering Facility: [facility] Address: [address] [place] [address] Performed By: #### S ERFOL, IRON, FERR ####[facility] LABORATORYCLIA [id number] [address] FOLATE SERUMon 06-18-2021 Folate [Mass/Vol] 14.3 ng/mL Normal >4.7 [facility] Comment on above: Order Comment: Speci men Type: BLOOD SPECIMENOrdering Facility: [facility] Address: [address] [place] [address] Performed By: #### S ERFOL, IRON, FERR ####[facility] LABORATORYCLIA [id number] [address] Gas and Carbon monoxide pane l (BldV)on 06-18-2021 Base excess Calc (BldV) [Moles/Vol] 0.5 mmol/L Normal 0-2 [facility] Comment on above: Order Comment: Speci men Type: VENOUS BLOOD SPECIMENOrdering Facility: [facility] Address: [address] [place] [address] Performed By: #### 2 4344-4 ####[facility] LABORATORYCLIA [id number] [address] Body temperature 97.34 [degF] Normal [facility] Comment on above: Order Comment: Speci men Type: VENOUS BLOOD SPECIMENOrdering Facility: [facility] Address: [address] [place] [address] Performed By: #### 2 4344-4 ####[facility] LABORATORYCLIA [id number] [address] CALCIUM IONIZED, PH CORRECTED 1.26 mmol/L Normal 1.08-1.30 [facility] Comment on above: Order Comment: Speci men Type: VENOUS BLOOD SPECIMENOrdering Facility: [facility] Address: [address] [place] [address] Performed By: #### 2 4344-4 ####[facility] LABORATORYCLIA [id number] [address] Calcium.ionized (BldV) [Mass/Vol] 1.25 mmol/L Normal 1.08-1.30 [facility] Comment on above: Order Comment: Speci men Type: VENOUS BLOOD SPECIMENOrdering Facility: [facility] Address: [address] [place] [address] Performed By: #### 2 4344-4 ####[facility] LABORATORYCLIA [id number] [address] OF [facility] Carboxyhemoglobin (BldV) [Mass fraction] 1.5 % Normal 0.0-2.0 [facility] Comment on above: Order Comment: Speci men Type: VENOUS BLOOD SPECIMENOrdering Facility: [facility] Address: [address] [place] [address] Result Comment: Carb oxyhemoglobin Reference Range for Smokers: 2.0-8.0% Performed By: #### 2 4344-4 ####[facility] LABORATORYCLIA [id number] [place] [address] [place] CO2 (BldV) [Partial pressure] 38 mm[Hg] Low 42-55 [facility] Comment on above: Order Comment: Speci men Type: VENOUS BLOOD SPECIMENOrdering Facility: [facility] Address: [address] [place] [address] Performed By: #### 2 4344-4 ####[facility] LABORATORYCLIA [id number] [place] [address] [place] CO2 [Moles/Vol] 22.9 mmol/L Low 25-29 [facility] Comment on above: Order Comment: Speci men Type: VENOUS BLOOD SPECIMENOrdering Facility: [facility] Address: [address] [place] [address] Performed By: #### 2 4344-4 ####[facility] LABORATORYCLIA [id number] [address] [place] CO2 adjusted to patient's actual temperature (BldV) [Partial pressure] 37 mmHg Low 42-55 [facility] Comment on above: Order Comment: Speci men Type: VENOUS BLOOD SPECIMENOrdering Facility: [facility] Address: [address] [place] [address] Performed By: #### 2 4344-4 ####[facility] LABORATORYCLIA [id number] [place] [address] [place] Glucose [Mass/Vol] 103 mg/dL Normal 60-105 [facility] Comment on above: Order Comment: Speci men Type: VENOUS BLOOD SPECIMENOrdering Facility: [facility] Address: [address] [place] [address] Performed By: #### 2 4344-4 ####[facility] LABORATORYCLIA [id number] [place] [address] [place] HCO3 (Bld) [Moles/Vol] 24.4 mmol/L Normal 24-[address] [place] Comment on above: Order Comment: Speci men Type: VENOUS BLOOD SPECIMENOrdering Facility: [facility] Address: [address] [place] [address] Performed By: #### 2 4344-4 ####[facility] [facility]ORY[facility] [id number] [address] [place] Hematocrit (Bld) [Volume fraction] 28.7 % Low 39.0-51.0 [facility] Comment on above: Order Comment: Speci men Type: VENOUS BLOOD SPECIMENOrdering Facility: [facility] Address: [address] [place] [address] Performed By: #### 2 4344-4 ####[facility]ORATORYCLIA [id number] [address] [place] Hemoglobin (Bld) [Mass/Vol] 9.3 g/dL Low 13.0-17.0 [facility] Comment on above: Order Comment: Speci men Type: VENOUS BLOOD SPECIMENOrdering Facility: [facility] Address: [address] [place] [address] Performed By: #### 2 4344-4 ####[facility]ORATORYCLIA [id number] [address] Methemoglobin (Bld) [Mass fraction] % Normal 0.0-1.5 [facility] Comment on above: Order Comment: Speci men Type: VENOUS BLOOD SPECIMENOrdering Facility: [facility] Address: [address] [place] [address] Performed By: #### 2 4344-4 ####[facility]ORATORYCLIA [id number] [address] [place] O2 THERAPY Ventilator Normal [facility] Comment on above: Order Comment: Speci men Type: VENOUS BLOOD SPECIMENOrdering Facility: [facility] Address: [address] [place] [address] Performed By: #### 2 4344-4 ####[facility]ORATORYCLIA [id number] [address] Oxygen (BldV) [Partial pressure] 37 mm[Hg] Normal 35-45 [facility] Comment on above: Order Comment: Speci men Type: VENOUS BLOOD SPECIMENOrdering Facility: [facility] Address: [address] [address] Performed By: #### 2 4344-4 ####[facility]ATORYCLIA [id number] [address] OF [facility] Oxygen adjusted to patient's actual temperature (BldV) [Partial pressure] 35.1 mmHg Normal 35-45 [facility] Comment on above: Order Comment: Speci men Type: VENOUS BLOOD SPECIMENOrdering Facility: [facility] Address: [address] [place] [address] Performed By: #### 2 4344-4 ####[facility]ORATORYCLIA [id number] [address] Oxygen saturation in Blood 67.1 % Normal 60-85 [facility] Comment on above: Order Comment: Speci men Type: VENOUS BLOOD SPECIMENOrdering Facility: [facility] Address: [address] [place] [address] Performed By: #### 2 4344-4 ####[facility]ORATORYCLIA [id number] [address] Oxyhemoglobin (BldV) [Mass fraction] 66 % Normal 60-85 [facility] Comment on above: Order Comment: Speci men Type: VENOUS BLOOD SPECIMENOrdering Facility: [facility] Address: [address] [place] [address] Performed By: #### 2 4344-4 ####[facility]ORATORYCLIA [id number] [address] [place] pH (BldV) 7.42 [pH] Normal 7.32-7.42 [facility] Comment on above: Order Comment: Speci men Type: VENOUS BLOOD SPECIMENOrdering Facility: [facility] Address: [address] [place] [address] Performed By: #### 2 4344-4 ####[facility] LABORATORYCLIA [id number] [address] [place] pH adjusted to patient's actual temperature (BldV) 7.43 High 7.32-7.42 [facility] Comment on above: Order Comment: Speci men Type: VENOUS BLOOD SPECIMENOrdering Facility: [facility] Address: [address] [place] [address] Performed By: #### 2 4344-4 ####[facility]ORATORYCLIA [id number] [address] [place] Potassium [Moles/Vol] 4.0 mmol/L Normal 3.5-5.0 [facility] Comment on above: Order Comment: Speci men Type: VENOUS BLOOD SPECIMENOrdering Facility: [facility] Address: [address] [place] [address] Performed By: #### 2 4344-4 ####[facility] LABORATORYCLIA [id number] [address] STATES OF [facility] Sodium [Moles/Vol] 146 mmol/L High 136-144 [facility] Comment on above: Order Comment: Speci men Type: VENOUS BLOOD SPECIMENOrdering Facility: [facility] Address: [address] [place] [address] Performed By: #### 2 4344-4 ####[facility]ORATORYCLIA [id number] [address] [place] HEMOGLOBIN (HGB)on Hemoglobin (Bld) [Mass/Vol] 9.2 g/dL Low 13.0-17.0 [facility] Comment on above: Order Comment: Speci men Type: BLOOD SPECIMENOrdering Facility: [facility] Address: [address] [place] [address] Performed By: #### H GB ####[facility]ORATORYCLIA [id number] [address] [place] IRON + TIBCon 06-18-2021 Iron [Mass/Vol] 27 ug/dL Low 41-186 [facility] Comment on above: Order Comment: Speci men Type: BLOOD SPECIMENOrdering Facility: [facility] Address: [address] [place] [address] Performed By: #### S ERFOL, IRON, FERR ####[facility]ORATORYCLIA [id number] [address] Iron binding capacity [Mass/Vol] 141 ug/dL Low 232-386 [facility] Comment on above: Order Comment: Speci men Type: BLOOD SPECIMENOrdering Facility: [facility] Address: [address] [place] [address] Performed By: #### S ERFOL, IRON, FERR ####[facility]ORATORYCLIA [id number] [address] Iron saturation [Mass fraction] 19 % Normal 15-57 [facility] Comment on above: Order Comment: Speci men Type: BLOOD SPECIMENOrdering Facility: [facility] Address: [address] [place] [address] Performed By: #### S ERFOL, IRON, FERR ####[facility]ORATORYCLIA [id number] [address] Magnesium SerPl-mCncon 06-18 Magnesium [Mass/Vol] 2.5 mg/dL High 1.7-2.3 [facility] Comment on above: Order Comment: Speci men Type: BLOOD SPECIMENOrdering Facility: [facility] Address: [address] [place] [address] Performed By: #### 2 4321-2, , 2776-05 ####[facility]ORATORYCLIA [id number] [address] [place] NURSING PROGon 06-18-2021 NURSING PROG Normal [facility] Phosphate SerPl-mCncon 06-18 Phosphate [Mass/Vol] 3.0 mg/dL Normal 2.7-4.8 [facility] Comment on above: Order Comment: Speci men Type: BLOOD SPECIMENOrdering Facility: [facility] Address: [address] [place] [address] Performed By: #### 2 4321-2, , 2776-05 ####[facility]ORATORYCLIA [id number] [address] [place] THERAPY NTon 06-18-2021 THERAPY NT Normal [facility] aPTT PPPon 06-18-2021 aPTT Coag (PPP) [Time] 43.0 s High 23.0-32.[address] [facility] Comment on above: Order Comment: Speci men Type: BLOOD SPECIMENOrdering Facility: [facility] Address: [address] [place] [address] Performed By: #### 1 4979-9 ####[facility]ORATORYCLIA [id number] [address] aPTT Coag (PPP) [Time] 60.6 s High 23.0-32.[address] [facility] Comment on above: Order Comment: Speci men Type: BLOOD SPECIMENOrdering Facility: [facility] Address: [address] [place] [address] Performed By: #### 1 4979-9 ####[facility] SERVICESCLIA [id number] [address] aPTT Coag (PPP) [Time] 46.4 s High 23.0-32.[address] [facility] Comment on above: Order Comment: Speci men Type: BLOOD SPECIMENOrdering Facility: [facility] Address: [address] [place] [address] Performed By: #### 1 4979-9 ####[facility]ORATORYCLIA [id number] [address] OF [facility] Basic metabolic 2000 panelon 06-17-2021 Anion gap [Moles/Vol] 7 mmol/L Low 9-18 [facility] Comment on above: Order Comment: Speci men Type: BLOOD SPECIMENOrdering Facility: [facility] Address: [address] [place] [address] Performed By: #### 2 951-2, 75368-1, 2777-1, 54766-9 ####[facility] LABORATORYCLIA [id number] [place] [address] [place] Calcium [Mass/Vol] 8.1 mg/dL Low 8.5-10.2 [facility] Comment on above: Order Comment: Speci men Type: BLOOD SPECIMENOrdering Facility: [facility] Address: [address] [place] [address] Performed By: #### 2 951-2, 13364-4, 2776-1, 16814-7 ####[facility] LABORATORYCLIA [id number] [place] [address] [place] Chloride [Moles/Vol] 113 mmol/L High 97-105 [facility] Comment on above: Order Comment: Speci men Type: BLOOD SPECIMENOrdering Facility: [facility] Address: [address] [place] [address] Performed By: #### 2 951-2, , 2776-05, 28469-6 ####[facility]ORATORYCLIA [id number] [place] [address] [place] CO2 [Moles/Vol] 25 mmol/L Normal 22-30 [facility] Comment on above: Order Comment: Speci men Type: BLOOD SPECIMENOrdering Facility: [facility] Address: [address] [place] [address] Performed By: #### 2 951-2, , 2776-05, 09828-8 ####[facility] LABORATORYCLIA [id number] [place] [address] [place] Creatinine [Mass/Vol] 0.70 mg/dL Low 0.73-1.22 [facility] Comment on above: Order Comment: Speci men Type: BLOOD SPECIMENOrdering Facility: [facility] Address: [address] [place] [address] Performed By: #### 2 951-2, , 2776-05, 16133-6 ####[facility] LABORATORYCLIA [id number] [place] [address] [place] GFR/1.73 sq M.predicted MDRD (S/P/Bld) [Vol rate/Area] mL/min/{1.73_m2} Normal [facility] Comment on above: Order Comment: Shira feldman Type: BLOOD SPECIMENOrdering Facility: [facility] Address: [address] [place], [place] [address] Result Comment: >60e GFR (Estimated GFR) Units [...] actual GFR. Performed By: #### 2 951-2, 78508-8, 2777-1, 80606-9 ####[facility] LABORATORYCLIA [id number] [place] [address] [place] Glucose [Mass/Vol] 122 mg/dL High 74-99 [facility] Comment on above: Order Comment: Shira feldman Type: BLOOD SPECIMENOrdering Facility: [facility] Address: [address] [place], [place] [address] Result Comment: The [employer] (ADA) [...] 2016.39(Suppl 1). Performed By: #### 2 951-2, 27378-1, 2777-1, 59127-5 ####[facility]ORATORYCLIA [id number] [address] STATES OF [facility] Potassium [Moles/Vol] 3.5 mmol/L Low 3.7-5.1 [facility] Comment on above: Order Comment: Speci men Type: BLOOD SPECIMENOrdering Facility: [facility] Address: [address] [place] [address] Performed By: #### 2 951-2, 71103-9, 2777-1, 22844-5 ####[facility] LABORATORYCLIA [id number] [address] [place] Urea nitrogen [Mass/Vol] 27 mg/dL High 9- [facility] Comment on above: Order Comment: Speci men Type: BLOOD SPECIMENOrdering Facility: [facility] Address: [address] [place] [address] Performed By: #### 2 951-2, 46303-0, 2777-1, 29056-9 ####[facility] HE[facility] SERVICESCLIA [id number] [address] OF [facility] CASE MANAGEMon 06-17-2021 CASE MANAGEM Normal [facility] CBC panel Auto (Bld)on 06-17 Erythrocyte distribution width (RBC) [Ratio] 15.9 % High 11.5-15.0 [facility] Comment on above: Order Comment: Speci men Type: BLOOD SPECIMENOrdering Facility: [facility] Address: [address] [place] [address] Performed By: #### 5 8410-2 ####[facility]ORATORYCLIA [id number] [address] Hematocrit (Bld) [Volume fraction] 28.9 % Low 39.0-51.0 [facility] Comment on above: Order Comment: Speci men Type: BLOOD SPECIMENOrdering Facility: [facility] Address: [address] [place] [address] Performed By: #### 5 8410-2 ####[facility]ORATORYCLIA [id number] [address] Hemoglobin (Bld) [Mass/Vol] 8.8 g/dL Low 13.0-17.0 [facility] Comment on above: Order Comment: Speci men Type: BLOOD SPECIMENOrdering Facility: [facility] Address: [address] [place] [address] Performed By: #### 5 8410-2 ####[facility] LABORATORYCLIA [id number] [address] MCH (RBC) [Entitic mass] 28.4 pg Normal 26.0-34.0 [facility] Comment on above: Order Comment: Speci men Type: BLOOD SPECIMENOrdering Facility: [facility] Address: [address] [place] [address] Performed By: #### 5 8410-2 ####[facility] LABORATORYCLIA [id number] [address] MCHC (RBC) [Mass/Vol] 30.4 g/dL Low 30.5-36.0 [facility] Comment on above: Order Comment: Speci men Type: BLOOD SPECIMENOrdering Facility: [facility] Address: [address] [place] [address] Performed By: #### 5 8410-2 ####[facility]ORATORYCLIA [id number] [address] MCV (RBC) [Entitic vol] 93.2 fL Normal 80.0-100.0 [facility] Comment on above: Order Comment: Speci men Type: BLOOD SPECIMENOrdering Facility: [facility] Address: [address] [place] [address] Performed By: #### 5 8410-2 ####[facility]ORATORYCLIA [id number] [address] Nucleated RBC (Bld) [#/Vol] 10*3/uL Normal <0.01 [facility] Comment on above: Order Comment: Speci men Type: BLOOD SPECIMENOrdering Facility: [facility] Address: [address] Performed By: #### 5 8410-2 ####[facility]ORATORYCLIA [id number] [address] Platelet mean volume (Bld) [Entitic vol] 11.9 fL Normal 9.0-12.7 [facility] Comment on above: Order Comment: Speci men Type: BLOOD SPECIMENOrdering Facility: [facility] Address: [address] [place] [address] Performed By: #### 5 8410-2 ####[facility]ORATORYCLIA [id number] [address] OF [facility] Platelets (Bld) [#/Vol] 257 10*3/uL Normal 150-400 [facility] Comment on above: Order Comment: Speci men Type: BLOOD SPECIMENOrdering Facility: [facility] Address: [address] [place] [address] Performed By: #### 5 8410-2 ####[facility]ORATORYCLIA [id number] [address] [place] RBC (Bld) [#/Vol] 3.10 10*6/uL Low 4.20-6.00 [facility] Comment on above: Order Comment: Speci men Type: BLOOD SPECIMENOrdering Facility: [facility] Address: [address] [place] [address] Performed By: #### 5 8410-2 ####[facility]ORATORYCLIA [id number] [address] [place] WBC (Bld) [#/Vol] 10.54 10*3/uL Normal 3.70-11.00 [facility] Comment on above: Order Comment: Speci men Type: BLOOD SPECIMENOrdering Facility: [facility] Address: [address] [place] [address] Performed By: #### 5 8410-2 ####[facility]ORATORYCLIA [id number] [address] HEMOGLOBIN (HGB)on Hemoglobin (Bld) [Mass/Vol] 8.8 g/dL Low 13.0-17.0 [facility] Comment on above: Order Comment: Speci men Type: BLOOD SPECIMENOrdering Facility: [facility] Address: [address] [place] [address] Performed By: #### H GB ####[facility]ORATORYCLIA [id number] [address] OF [facility] Magnesium SerPl-mCncon 06-17 Magnesium [Mass/Vol] 2.5 mg/dL High 1.7-2.3 [facility] Comment on above: Order Comment: Speci men Type: BLOOD SPECIMENOrdering Facility: [facility] Address: [address] [place] [address] Performed By: #### 2 951-2, 39446-3, 2777-1, 04858-4 ####[facility]ORATORYCLIA [id number] [address] NURSING PROGon 06-17-2021 NURSING PROG Normal [facility] NURSING PROG Normal [facility] NURSING PROG Normal [facility] Phosphate SerPl-mCncon 06-17 Phosphate [Mass/Vol] 1.9 mg/dL Low 2.7-4.8 [facility] Comment on above: Order Comment: Speci men Type: BLOOD SPECIMENOrdering Facility: [facility] Address: [address] [place] [address] Performed By: #### 2 951-2, 65176-0, 2777-1, 10234-5 ####[facility]ORATORYCLIA [id number] [address] OF [facility] Sodium SerPl-sCncon 06-17-19 22 Sodium [Moles/Vol] 144 mmol/L Normal 136-144 [facility] Comment on above: Order Comment: Speci men Type: BLOOD SPECIMENOrdering Facility: [facility] Address: [address] [place] [address] Performed By: #### 2 951-2 ####[facility]ORATORYCLIA [id number] [address] STATES OF [facility] Sodium [Moles/Vol] 145 mmol/L High 136-144 [facility] Comment on above: Order Comment: Speci men Type: BLOOD SPECIMENOrdering Facility: [facility] Address: [address] [place] [address] Performed By: #### 2 951-2, 37193-6, 2777-1, 18417-1 ####[facility]ORATORYCLIA [id number] [place] [address] [place] aPTT PPPon 06-17-2021 aPTT Coag (PPP) [Time] 55.8 s High 23.0-32.[address] [facility] Comment on above: Order Comment: Speci men Type: BLOOD SPECIMENOrdering Facility: [facility] Address: [address] [place] [address] Performed By: #### 1 4979-9 ####[facility] LABORATORYCLIA [id number] [address] [place] ARTERIAL BLOOD GASESon 06-16 Base excess Calc (Bld) [Moles/Vol] 3 mmol/L High 0-2 [facility] Comment on above: Order Comment: Speci men Type: ARTERIAL BLOOD SPECIMENOrdering Facility: [facility] Address: [address] [place] [address] Performed By: #### A LLBG ####[facility] LABORATORYCLIA [id number] [address] [place] Body temperature 99.14 [degF] Normal [facility] Comment on above: Order Comment: Speci men Type: ARTERIAL BLOOD SPECIMENOrdering Facility: [facility] Address: [address] [place] [address] Performed By: #### A LLBG ####[facility] LABORATORYCLIA [id number] [address] [place] CALCIUM IONIZED, PH CORRECTED 1.21 mmol/L Normal 1.08-1.30 [facility] Comment on above: Order Comment: Speci men Type: ARTERIAL BLOOD SPECIMENOrdering Facility: [facility] Address: [address] [place] [address] Performed By: #### A LLBG ####[facility] LABORATORYCLIA [id number] [place] [address] [place] Calcium.ionized (BldV) [Mass/Vol] 1.17 mmol/L Normal 1.08-1.30 [facility] Comment on above: Order Comment: Speci men Type: ARTERIAL BLOOD SPECIMENOrdering Facility: [facility] Address: [address] [place] [address] Performed By: #### A LLBG ####[facility] LABORATORYCLIA [id number] [address] [place] Carboxyhemoglobin (BldA) [Mass fraction] 1.4 % Normal 0.0-2.0 [facility] Comment on above: Order Comment: Speci men Type: ARTERIAL BLOOD SPECIMENOrdering Facility: [facility] Address: [address] [place] [address] Result Comment: Carb oxyhemoglobin Reference Range for Smokers: 2.0-8.0% Performed By: #### A LLBG ####[facility] LABORATORYCLIA [id number] [place] [address] [place] CO2 (Bld) [Partial pressure] 38 mm Hg Normal 36-46 [facility] Comment on above: Order Comment: Speci men Type: ARTERIAL BLOOD SPECIMENOrdering Facility: [facility] Address: [address] [place] [address] Performed By: #### A LLBG ####[facility] LABORATORYCLIA [id number] [place] [address] [place] CO2 [Moles/Vol] 24.5 mmol/L Normal 22-28 [facility] Comment on above: Order Comment: Speci men Type: ARTERIAL BLOOD SPECIMENOrdering Facility: [facility] Address: [address] [place] [address] Performed By: #### A LLBG ####[facility] LABORATORYCLIA [id number] [address] CO2 adjusted to patient's actual temperature (Bld) [Partial pressure] 38 mmHg Normal 36-46 [facility] Comment on above: Order Comment: Speci men Type: ARTERIAL BLOOD SPECIMENOrdering Facility: [facility] Address: [address] [place] [address] Performed By: #### A LLBG ####[facility] LABORATORYCLIA [id number] [address] [place] Glucose [Mass/Vol] 147 mg/dL High 60-105 [facility] Comment on above: Order Comment: Speci men Type: ARTERIAL BLOOD SPECIMENOrdering Facility: [facility] Address: [address] [place] [address] Performed By: #### A LLBG ####[facility] LABORATORYCLIA [id number] [address] HCO3 (Bld) [Moles/Vol] 27 mmol/L High 22-[address] [facility] Comment on above: Order Comment: Speci men Type: ARTERIAL BLOOD SPECIMENOrdering Facility: [facility] Address: [address] [place] [address] Performed By: #### A LLBG ####[facility] LABORATORYCLIA [id number] [address] [place] Hematocrit (Bld) [Volume fraction] 31.8 % Low 39.0-51.0 [facility] Comment on above: Order Comment: Speci men Type: ARTERIAL BLOOD SPECIMENOrdering Facility: [facility] Address: [address] [place] [address] Performed By: #### A LLBG ####[facility]ORATORYCLIA [id number] [address] [place] Hemoglobin (Bld) [Mass/Vol] 10.3 g/dL Low 13.0-17.0 [facility] Comment on above: Order Comment: Speci men Type: ARTERIAL BLOOD SPECIMENOrdering Facility: [facility] Address: [address] [address] Performed By: #### A LLBG ####[facility]ORATORYCLIA [id number] [address] Methemoglobin (Bld) [Mass fraction] 1.0 % Normal 0.0-1.5 [facility] Comment on above: Order Comment: Speci men Type: ARTERIAL BLOOD SPECIMENOrdering Facility: [facility] Address: [address] [place] [address] Performed By: #### A LLBG ####[facility] LABORATORYCLIA [id number] [address] O2 THERAPY Ventilator Normal [facility] Comment on above: Order Comment: Speci men Type: ARTERIAL BLOOD SPECIMENOrdering Facility: [facility] Address: [address] [place] [address] Performed By: #### A LLBG ####[facility]ORATORYCLIA [id number] [address] Oxygen (Bld) [Partial pressure] 78 mm Hg Low 85-95 [facility] Comment on above: Order Comment: Speci men Type: ARTERIAL BLOOD SPECIMENOrdering Facility: [facility] Address: [address] [place] [address] Performed By: #### A LLBG ####[facility]ORATORYCLIA [id number] [address] Oxygen adjusted to patient's actual temperature (Bld) [Partial pressure] 79.7 mmHg Low 85-95 [facility] Comment on above: Order Comment: Speci men Type: ARTERIAL BLOOD SPECIMENOrdering Facility: [facility] Address: [address] [address] Performed By: #### A LLBG ####[facility]ORATORYCLIA [id number] [address] [place] OXYGEN SATURATION, ARTERIAL 96 % Normal 95-98 [facility] Comment on above: Order Comment: Speci men Type: ARTERIAL BLOOD SPECIMENOrdering Facility: [facility] Address: [address] [place] [address] Performed By: #### A LLBG ####[facility] LABORATORYCLIA [id number] [address] [place] Oxyhemoglobin (BldA) [Mass fraction] 94 % Low 95- [facility] Comment on above: Order Comment: Speci men Type: ARTERIAL BLOOD SPECIMENOrdering Facility: [facility] Address: [address] [place] [address] Performed By: #### A LLBG ####[facility] LABORATORYCLIA [id number] [place] [address] [place] pH (Bld) 7.47 [pH] High 7.35-7.45 [facility] Comment on above: Order Comment: Speci men Type: ARTERIAL BLOOD SPECIMENOrdering Facility: [facility] HOSP[facility] Address: [address] [place] [address] Performed By: #### A LLBG ####[facility] LABORATORYCLIA [id number] [address] STATES [facility] pH adjusted to patient's actual temperature (Bld) 7.46 High 7.35-7.45 [facility] Comment on above: Order Comment: Speci men Type: ARTERIAL BLOOD SPECIMENOrdering Facility: [facility] Address: [address] [place] [address] Performed By: #### A LLBG ####[facility] LABORATORYCLIA [id number] [place] [address] [place] Potassium [Moles/Vol] 3.7 mmol/L Normal 3.5-5.0 [facility] Comment on above: Order Comment: Speci men Type: ARTERIAL BLOOD SPECIMENOrdering Facility: [facility] Address: [address] [place] [address] Performed By: #### A LLBG ####[facility] LABORATORYCLIA [id number] [address] [place] Sodium [Moles/Vol] 155 mmol/L High 136-144 [facility] Comment on above: Order Comment: Speci men Type: ARTERIAL BLOOD SPECIMENOrdering Facility: [facility] Address: [address] [place] [address] Performed By: #### A LLBG ####[facility] LABORATORYCLIA [id number] [address] [place] Bacteria Spec Resp Culton Bacteria identified Respiratory culture Nom (Unsp spec) CULTURE, RESPIRATORY: Rare Normal respiratory chris present ORGANISM ID: 1 Few Yeast, not cryptococcus neoformans GRAM STAIN: No organisms seen Few Polymorphonuclear leukocytes Few Epithelial cells Abnormal [facility] Comment on above: Performed By: #### 3 2355-0 ####[facility] LABORATORYCLIA [id number] [place] [address] [place] Basic metabolic 2000 panelon 06-16-2021 Anion gap [Moles/Vol] 9 mmol/L Normal 9-18 [facility] Comment on above: Order Comment: Speci men Type: BLOOD SPECIMENOrdering Facility: [facility] Address: [address] [place] [address] Performed By: #### 2 4321-2 ####[facility] LABORATORYCLIA [id number] [place] [address] [place] Calcium [Mass/Vol] 8.4 mg/dL Low 8.5-10.2 [facility] Comment on above: Order Comment: Speci men Type: BLOOD SPECIMENOrdering Facility: [facility] Address: [address] [place] [address] Performed By: #### 2 4321-2 ####[facility] LABORATORYCLIA [id number] [place] [address] [place] Chloride [Moles/Vol] 120 mmol/L High 97-105 [facility] Comment on above: Order Comment: Speci men Type: BLOOD SPECIMENOrdering Facility: [facility] Address: [address] [place] [address] Performed By: #### 2 4321-2 ####[facility] LABORATORYCLIA [id number] [address] STATES OF [facility] CO2 [Moles/Vol] 27 mmol/L Normal 22-30 [facility] Comment on above: Order Comment: Speci men Type: BLOOD SPECIMENOrdering Facility: [facility] Address: [address] [place] [address] Performed By: #### 2 4321-2 ####[facility] LABORATORYCLIA [id number] [address] [place] Creatinine [Mass/Vol] 0.75 mg/dL Normal 0.73-1.22 [facility] Comment on above: Order Comment: Speci men Type: BLOOD SPECIMENOrdering Facility: [facility] Address: [address] [place] [address] Performed By: #### 2 4321-2 ####[facility] HE[facility] SERVICESCLIA [id number] [address] [place] GFR/1.73 sq M.predicted MDRD (S/P/Bld) [Vol rate/Area] mL/min/{1.73_m2} Normal [facility] Comment on above: Order Comment: Speci men Type: BLOOD SPECIMENOrdering Facility: [facility] Address: [address] [place] [address] Result Comment: >60e GFR (Estimated GFR) Units [...] actual GFR. Performed By: #### 2 4321-2 ####[facility] LABORATORYCLIA [id number] [address] [place] Glucose [Mass/Vol] 160 mg/dL High 74-99 [facility] Comment on above: Order Comment: Speci men Type: BLOOD SPECIMENOrdering Facility: [facility] Address: [address] [place] [address] Result Comment: The [employer] (ADA) [...] 2016.39(Suppl 1). Performed By: #### 2 4321-2 ####[facility] LABORATORYCLIA [id number] [place] [address] [place] Potassium [Moles/Vol] 3.1 mmol/L Low 3.7-5.1 [facility] Comment on above: Order Comment: Shira men Type: BLOOD SPECIMENOrdering Facility: [facility] Address: [address] [place] [address] Performed By: #### 2 4321-2 ####[facility] LABORATORYCLIA [id number] [place] [address] [place] Sodium [Moles/Vol] 156 mmol/L High 136-144 [facility] Comment on above: Order Comment: Speci men Type: BLOOD SPECIMENOrdering Facility: [facility] Address: [address] [place] [address] Performed By: #### 2 4321-2 ####[facility] LABORATORYCLIA [id number] [place] [address] [place] Urea nitrogen [Mass/Vol] 33 mg/dL High 9-24 [facility] Comment on above: Order Comment: Speci men Type: BLOOD SPECIMENOrdering Facility: [facility] Address: [address] [place] [address] Performed By: #### 2 4321-2 ####[facility] LABORATORYCLIA [id number] [address] CASE MANAGEMon 06-16-2021 CASE MANAGEM Normal [facility] CBC panel Auto (Bld)on 06-16 Erythrocyte distribution width (RBC) [Ratio] 15.9 % High 11.5-15.0 [facility] Comment on above: Order Comment: Speci men Type: BLOOD SPECIMENOrdering Facility: [facility] Address: [address] [place] [address] Performed By: #### 5 8410-2 ####[facility] LABORATORYCLIA [id number] [address] STATES [facility] Hematocrit (Bld) [Volume fraction] 34.6 % Low 39.0-51.0 [facility] Comment on above: Order Comment: Speci men Type: BLOOD SPECIMENOrdering Facility: [facility] Address: [address] [place] [address] Performed By: #### 5 8410-2 ####[facility]ORATORYCLIA [id number] [address] Hemoglobin (Bld) [Mass/Vol] 10.2 g/dL Low 13.0-17.0 [facility] Comment on above: Order Comment: Speci men Type: BLOOD SPECIMENOrdering Facility: [facility] Address: [address] [place] [address] Performed By: #### 5 8410-2 ####[facility] LABORATORYCLIA [id number] [address] MCH (RBC) [Entitic mass] 28.5 pg Normal 26.0-34.0 [facility] Comment on above: Order Comment: Speci men Type: BLOOD SPECIMENOrdering Facility: [facility] Address: [address] [place] [address] Performed By: #### 5 8410-2 ####[facility] LABORATORYCLIA [id number] [address] STATES [facility] MCHC (RBC) [Mass/Vol] 29.5 g/dL Low 30.5-36.0 [facility] Comment on above: Order Comment: Speci men Type: BLOOD SPECIMENOrdering Facility: [facility] Address: [address] [place] [address] Performed By: #### 5 8410-2 ####[facility] LABORATORYCLIA [id number] [address] STATES OF [facility] MCV (RBC) [Entitic vol] 96.6 fL Normal 80.0-100.0 [facility] Comment on above: Order Comment: Speci men Type: BLOOD SPECIMENOrdering Facility: [facility] Address: [address] [place] [address] Performed By: #### 5 8410-2 ####[facility]ORATORYCLIA [id number] [address] Nucleated RBC (Bld) [#/Vol] 10*3/uL Normal <0.01 [facility] Comment on above: Order Comment: Speci men Type: BLOOD SPECIMENOrdering Facility: [facility] Address: [address] [place] [address] Performed By: #### 5 8410-2 ####[facility]ORATORYCLIA [id number] [address] [place] Platelet mean volume (Bld) [Entitic vol] 11.9 fL Normal 9.0-12.7 [facility] Comment on above: Order Comment: Speci men Type: BLOOD SPECIMENOrdering Facility: [facility] Address: [address] [place] [address] Performed By: #### 5 8410-2 ####[facility]ORATORYCLIA [id number] [address] [place] Platelets (Bld) [#/Vol] 269 10*3/uL Normal 150-400 [facility] Comment on above: Order Comment: Speci men Type: BLOOD SPECIMENOrdering Facility: [facility] Address: [address] [place] [address] Performed By: #### 5 8410-2 ####[facility] LABORATORYCLIA [id number] [address] STATES OF [facility] RBC (Bld) [#/Vol] 3.58 10*6/uL Low 4.20-6.00 [facility] Comment on above: Order Comment: Speci men Type: BLOOD SPECIMENOrdering Facility: [facility] Address: [address] [place] [address] Performed By: #### 5 8410-2 ####[facility] LABORATORYCLIA [id number] [address] WBC (Bld) [#/Vol] 13.11 10*3/uL High 3.70-11.00 [facility] Comment on above: Order Comment: Speci men Type: BLOOD SPECIMENOrdering Facility: [facility] Address: [address] [place] [address] Performed By: #### 5 8410-2 ####[facility] LABORATORYCLIA [id number] [address] [place] CONSULTon 06-16-2021 CONSULT Normal [facility] CONSULT PROGon 06-16-2021 CONSULT PROG Normal [facility] CT BRAIN WO IVCONon 06-16-[address] BRAIN WO IVCON Normal [facility] HEMOGLOBIN (HGB)on 2 Hemoglobin (Bld) [Mass/Vol] 8.9 g/dL Low 13.0-17.0 [facility] Comment on above: Order Comment: Speci men Type: BLOOD SPECIMENOrdering Facility: [facility] Address: [address] [place] [address] Performed By: #### H GB ####[facility] LABORATORYCLIA [id number] [address] OF [facility] Hemoglobin (Bld) [Mass/Vol] 9.6 g/dL Low 13.0-17.0 [facility] Comment on above: Order Comment: Speci men Type: BLOOD SPECIMENOrdering Facility: [facility] Address: [address] [place] [address] Performed By: #### H GB ####[facility]ORATORYCLIA [id number] [address] [place] Magnesium SerPl-mCncon 06-16 Magnesium [Mass/Vol] 2.7 mg/dL High 1.7-2.3 [facility] Comment on above: Order Comment: Speci men Type: BLOOD SPECIMENOrdering Facility: [facility] Address: [address] [place] [address] Performed By: #### 1 9123-9 ####[facility] LABORATORYCLIA [id number] [address] [place] NURSING PROGon 06-16-2021 NURSING PROG Normal [facility] NUTRITIONon 06-16-2021 NUTRITION Normal [facility] Phosphate SerPl-mCncon 06-16 Phosphate [Mass/Vol] 1.4 mg/dL Low 2.7-4.8 [facility] Comment on above: Order Comment: Speci men Type: BLOOD SPECIMENOrdering Facility: [facility] Address: [address] [place] [address] Performed By: #### 2 777-1 ####[facility] LABORATORYCLIA [id number] [address] [place] STAPH AUREUS PCRon 2 S. aureus and MRSA panel MEGAN+probe (Nose) Normal Negative [facility] Comment on above: Order Comment: Speci men Type: SWAB OF INTERNAL NOSEOrdering Facility: [facility] Address: [address] [place] [address] Result Comment: Nega tive for Staphylococcus aureus by PCR.Negative for MRSA by PCR Performed By: #### S APCR ####[facility]ORATORYCLIA [id number] [address] [place] Sodium SerPl-sCncon 06-16-19 Sodium [Moles/Vol] 150 mmol/L High 136-144 [facility] Comment on above: Order Comment: Speci men Type: BLOOD SPECIMENOrdering Facility: [facility] Address: [address] [place] [address] Performed By: #### 2 951-2 ####[facility] LABORATORYCLIA [id number] [place] [address] [place] Sodium [Moles/Vol] 153 mmol/L High 136-144 [facility] Comment on above: Order Comment: Speci men Type: BLOOD SPECIMENOrdering Facility: [facility] Address: [address] [place] [address] Performed By: #### 2 951-2 ####[facility]ORATORYCLIA [id number] [address] [place] Sodium [Moles/Vol] 158 mmol/L High 136-144 [facility] Comment on above: Order Comment: Speci men Type: BLOOD SPECIMENOrdering Facility: [facility] Address: [address] [place] [address] Performed By: #### 2 951-2 ####[facility]ORATORYCLIA [id number] [address] [place] aPTT PPPon 06-16-2021 aPTT Coag (PPP) [Time] 61.8 s High 23.0-32.[address] [facility] Comment on above: Order Comment: Speci men Type: BLOOD SPECIMENOrdering Facility: [facility] Address: [address] [place] [address] Performed By: #### 1 4979-9 ####[facility]ORATORYCLIA [id number] [address] [place] aPTT Coag (PPP) [Time] 57.6 s High 23.0-32.[address] [facility] Comment on above: Order Comment: Speci men Type: BLOOD SPECIMENOrdering Facility: [facility] Address: [address] [place] [address] Performed By: #### 1 4979-9 ####[facility]ORATORYCLIA [id number] [address] [place] ALLIED HEALTHon 06-15-2021 ALLIED HEALTH Normal [facility] ALLIED HEALTH Normal [facility] ALLIED HEALTH Normal [facility] ALLIED HEALTH Normal [facility] ARTERIAL BLOOD GASESon 06-15 Base excess Calc (Bld) [Moles/Vol] 3 mmol/L High 0-2 [facility] Comment on above: Order Comment: Speci men Type: ARTERIAL BLOOD SPECIMENOrdering Facility: [facility] Address: [address] [place] [address] Performed By: #### A LLBG ####[facility]ORATORYCLIA [id number] [address] [place] Body temperature 99.5 [degF] Normal [facility] Comment on above: Order Comment: Speci men Type: ARTERIAL BLOOD SPECIMENOrdering Facility: [facility] Address: [address] [place] [address] Performed By: #### A LLBG ####[facility] LABORATORYCLIA [id number] [place] [address] [place] CALCIUM IONIZED, PH CORRECTED 1.34 mmol/L High 1.08-1.30 [facility] Comment on above: Order Comment: Speci men Type: ARTERIAL BLOOD SPECIMENOrdering Facility: [facility] Address: [address] [place] [address] Performed By: #### A LLBG ####[facility]ORATORYCLIA [id number] [address] [place] Calcium.ionized (BldV) [Mass/Vol] 1.29 mmol/L Normal 1.08-1.30 [facility] Comment on above: Order Comment: Speci men Type: ARTERIAL BLOOD SPECIMENOrdering Facility: [facility] Address: [address] [place] [address] Performed By: #### A LLBG ####[facility]ORATORYCLIA [id number] [address] [place] Carboxyhemoglobin (BldA) [Mass fraction] 1.3 % Normal 0.0-2.0 [facility] Comment on above: Order Comment: Speci men Type: ARTERIAL BLOOD SPECIMENOrdering Facility: [facility] Address: [address] [place] [address] Result Comment: Carb oxyhemoglobin Reference Range for Smokers: 2.0-8.0% Performed By: #### A LLBG ####[facility]ORATORYCLIA [id number] [address] [place] CO2 (Bld) [Partial pressure] 37 mm Hg Normal 36-46 [facility] Comment on above: Order Comment: Speci men Type: ARTERIAL BLOOD SPECIMENOrdering Facility: [facility] Address: [address] [place] [address] Performed By: #### A LLBG ####[facility]ORATORYCLIA [id number] [address] [place] CO2 [Moles/Vol] 24.6 mmol/L Normal 22-28 [facility] Comment on above: Order Comment: Speci men Type: ARTERIAL BLOOD SPECIMENOrdering Facility: [facility] Address: [address] [address] Performed By: #### A LLBG ####[facility]ORATORYCLIA [id number] [address] [place] CO2 adjusted to patient's actual temperature (Bld) [Partial pressure] 38 mmHg Normal 36-46 [facility] Comment on above: Order Comment: Speci men Type: ARTERIAL BLOOD SPECIMENOrdering Facility: [facility] Address: [address] [address] Performed By: #### A LLBG ####[facility]ORATORYCLIA [id number] [address] [place] FIO2 100 % Normal [facility] Comment on above: Order Comment: Speci men Type: ARTERIAL BLOOD SPECIMENOrdering Facility: [facility] Address: [address] [address] Performed By: #### A LLBG ####[facility]ORATORYCLIA [id number] [address] [place] Glucose [Mass/Vol] 159 mg/dL High 60-105 [facility] Comment on above: Order Comment: Speci men Type: ARTERIAL BLOOD SPECIMENOrdering Facility: [facility] Address: [address] [place] [address] Performed By: #### A LLBG ####[facility]ORATORYCLIA [id number] [address] [place] HCO3 (Bld) [Moles/Vol] 27 mmol/L High 22-[address] [facility] Comment on above: Order Comment: Speci men Type: ARTERIAL BLOOD SPECIMENOrdering Facility: [facility] Address: [address] [place] [address] Performed By: #### A LLBG ####[facility]ORATORYCLIA [id number] [address] Hematocrit (Bld) [Volume fraction] 31.0 % Low 39.0-51.0 [facility] Comment on above: Order Comment: Speci men Type: ARTERIAL BLOOD SPECIMENOrdering Facility: [facility] Address: [address] [place] [address] Performed By: #### A LLBG ####[facility]ORATORYCLIA [id number] [address] [place] Hemoglobin (Bld) [Mass/Vol] 10.0 g/dL Low 13.0-17.0 [facility] Comment on above: Order Comment: Speci men Type: ARTERIAL BLOOD SPECIMENOrdering Facility: [facility] Address: [address] [place] [address] Performed By: #### A LLBG ####[facility]ORATORYCLIA [id number] [address] [place] Methemoglobin (Bld) [Mass fraction] % Normal 0.0-1.5 [facility] Comment on above: Order Comment: Speci men Type: ARTERIAL BLOOD SPECIMENOrdering Facility: [facility] Address: [facility] [place] [address] Performed By: #### A LLBG ####[facility]ATORYCLIA [id number] [address] [place] O2 THERAPY Ventilator Normal [facility] Comment on above: Order Comment: Speci men Type: ARTERIAL BLOOD SPECIMENOrdering Facility: [facility] Address: [address] [place] [address] Performed By: #### A LLBG ####[facility]ORATORYCLIA [id number] [address] [place] Oxygen (Bld) [Partial pressure] 279 mm Hg High 85-95 [facility] Comment on above: Order Comment: Speci men Type: ARTERIAL BLOOD SPECIMENOrdering Facility: [facility] Address: [address] [place] [address] Performed By: #### A LLBG ####[facility]ATORYCLIA [id number] [address] Oxygen adjusted to patient's actual temperature (Bld) [Partial pressure] 281 mmHg High 85-95 [facility] Comment on above: Order Comment: Speci men Type: ARTERIAL BLOOD SPECIMENOrdering Facility: [facility] Address: [address] [place] [address] Performed By: #### A LLBG ####[facility]ATORYCLIA [id number] [address] [place] OXYGEN SATURATION, ARTERIAL 100 % High 95-98 [facility] Comment on above: Order Comment: Speci men Type: ARTERIAL BLOOD SPECIMENOrdering Facility: [facility] Address: [facility] [place] [address] Performed By: #### A LLBG ####[facility]ATORYCLIA [id number] [address] [place] Oxyhemoglobin (BldA) [Mass fraction] 98 % Normal 95-98 [facility] Comment on above: Order Comment: Speci men Type: ARTERIAL BLOOD SPECIMENOrdering Facility: [facility] Address: [address] [place] [address] Performed By: #### A LLBG ####[facility]ORATORYCLIA [id number] [address] pH (Bld) 7.47 [pH] High 7.35-7.45 [facility] Comment on above: Order Comment: Speci men Type: ARTERIAL BLOOD SPECIMENOrdering Facility: [facility] Address: [address] [place] [address] Performed By: #### A LLBG ####[facility]ORATORYCLIA [id number] [address] pH adjusted to patient's actual temperature (Bld) 7.46 High 7.35-7.45 [facility] Comment on above: Order Comment: Speci men Type: ARTERIAL BLOOD SPECIMENOrdering Facility: [facility] Address: [address] [place] [address] Performed By: #### A LLBG ####[facility]ORATORYCLIA [id number] [address] [place] Potassium [Moles/Vol] 3.6 mmol/L Normal 3.5-5.0 [facility] Comment on above: Order Comment: Speci men Type: ARTERIAL BLOOD SPECIMENOrdering Facility: [facility] Address: [address] [place] [address] Performed By: #### A LLBG ####[facility]ORATORYCLIA [id number] [address] [place] Sodium [Moles/Vol] 162 mmol/L High 136-144 [facility] Comment on above: Order Comment: Speci men Type: ARTERIAL BLOOD SPECIMENOrdering Facility: [facility] Address: [address] [place] [address] Performed By: #### A LLBG ####[facility]ORATORYCLIA [id number] [address] [place] Base excess Calc (Bld) [Moles/Vol] 4 mmol/L High 0-2 [facility] Comment on above: Order Comment: Speci men Type: ARTERIAL BLOOD SPECIMENOrdering Facility: [facility] Address: [address] [place] [address] Performed By: #### A LLBG ####[facility]ORATORYCLIA [id number] [address] [place] Body temperature 100.58 [degF] Normal [facility] Comment on above: Order Comment: Speci men Type: ARTERIAL BLOOD SPECIMENOrdering Facility: [facility] Address: [address] [place] [address] Performed By: #### A LLBG ####[facility]ORATORYCLIA [id number] [place] [address] [place] CALCIUM IONIZED, PH CORRECTED 1.34 mmol/L High 1.08-1.30 [facility] Comment on above: Order Comment: Speci men Type: ARTERIAL BLOOD SPECIMENOrdering Facility: [facility] Address: [address] [place] [address] Performed By: #### A LLBG ####[facility]ORATORYCLIA [id number] [address] [place] Calcium.ionized (BldV) [Mass/Vol] 1.33 mmol/L High 1.08-1.30 [facility] Comment on above: Order Comment: Speci men Type: ARTERIAL BLOOD SPECIMENOrdering Facility: [facility] Address: [address] [place] [address] Performed By: #### A LLBG ####[facility]ORATORYCLIA [id number] [place] [address] [place] Carboxyhemoglobin (BldA) [Mass fraction] 1.5 % Normal 0.0-2.0 [facility] Comment on above: Order Comment: Speci men Type: ARTERIAL BLOOD SPECIMENOrdering Facility: [facility] Address: [address] [place] [address] Result Comment: Carb oxyhemoglobin Reference Range for Smokers: 2.0-8.0% Performed By: #### A LLBG ####[facility]ORYCLIA [id number] [address] CO2 (Bld) [Partial pressure] 46 mm Hg Normal 36-46 [facility] Comment on above: Order Comment: Speci men Type: ARTERIAL BLOOD SPECIMENOrdering Facility: [facility] Address: [address] [address] Performed By: #### A LLBG ####[facility]ATORYCLIA [id number] [address] CO2 [Moles/Vol] 26.4 mmol/L Normal 22-28 [facility] Comment on above: Order Comment: Speci men Type: ARTERIAL BLOOD SPECIMENOrdering Facility: [facility] Address: [address] [place] [address] Performed By: #### A LLBG ####[facility] LABORATORYCLIA [id number] [address] CO2 adjusted to patient's actual temperature (Bld) [Partial pressure] 48 mmHg High 36-46 [facility] Comment on above: Order Comment: Speci men Type: ARTERIAL BLOOD SPECIMENOrdering Facility: [facility] Address: [address] [place] [address] Performed By: #### A LLBG ####[facility] LABORATORYCLIA [id number] [address] FIO2 100 % Normal [facility] Comment on above: Order Comment: Speci men Type: ARTERIAL BLOOD SPECIMENOrdering Facility: [facility] Address: [address] [address] Performed By: #### A LLBG ####[facility]ATORYCLIA [id number] [address] Glucose [Mass/Vol] 132 mg/dL High 60-105 [facility] Comment on above: Order Comment: Speci men Type: ARTERIAL BLOOD SPECIMENOrdering Facility: [facility] Address: [address] [place], [place] [address] Performed By: #### A LLBG ####[facility]ORATORYCLIA [id number] [address] [place] HCO3 (Bld) [Moles/Vol] 29 mmol/L High 22-[address] [facility] Comment on above: Order Comment: Speci men Type: ARTERIAL BLOOD SPECIMENOrdering Facility: [facility] Address: [address] [place] [address] Performed By: #### A LLBG ####[facility]ORATORYCLIA [id number] [address] [place] Hematocrit (Bld) [Volume fraction] 32.3 % Low 39.0-51.0 [facility] Comment on above: Order Comment: Speci men Type: ARTERIAL BLOOD SPECIMENOrdering Facility: [facility] Address: [address] [place] [address] Performed By: #### A LLBG ####[facility]ORATORYCLIA [id number] [address] OF [facility] Hemoglobin (Bld) [Mass/Vol] 10.4 g/dL Low 13.0-17.0 [facility] Comment on above: Order Comment: Speci men Type: ARTERIAL BLOOD SPECIMENOrdering Facility: [facility] Address: [address] [place] [address] Performed By: #### A LLBG ####[facility]ORATORYCLIA [id number] [address] [place] Methemoglobin (Bld) [Mass fraction] % Normal 0.0-1.5 [facility] Comment on above: Order Comment: Speci men Type: ARTERIAL BLOOD SPECIMENOrdering Facility: [facility] Address: [address] [place] [address] Performed By: #### A LLBG ####[facility]ORATORYCLIA [id number] [address] [place] O2 THERAPY NR=Non-Rebreather Mask Normal [facility] Comment on above: Order Comment: Speci men Type: ARTERIAL BLOOD SPECIMENOrdering Facility: [facility] Address: [address] [place] [address] Performed By: #### A LLBG ####[facility]ATORYCLIA [id number] [address] Oxygen (Bld) [Partial pressure] 130 mm Hg High 85-95 [facility] Comment on above: Order Comment: Speci men Type: ARTERIAL BLOOD SPECIMENOrdering Facility: [facility] Address: [address] [place] [address] Performed By: #### A LLBG ####[facility]ORATORYCLIA [id number] [address] Oxygen adjusted to patient's actual temperature (Bld) [Partial pressure] 136 mmHg High 85-95 [facility] Comment on above: Order Comment: Speci men Type: ARTERIAL BLOOD SPECIMENOrdering Facility: [facility] Address: [address] [place] [address] Performed By: #### A LLBG ####[facility]ORATORYCLIA [id number] [address] [place] OXYGEN SATURATION, ARTERIAL 99 % High 95-98 [facility] Comment on above: Order Comment: Speci men Type: ARTERIAL BLOOD SPECIMENOrdering Facility: [facility] Address: [address] [place] [address] Performed By: #### A LLBG ####[facility]ORATORYCLIA [id number] [address] [place] Oxyhemoglobin (BldA) [Mass fraction] 97 % Normal 95-98 [facility] Comment on above: Order Comment: Speci men Type: ARTERIAL BLOOD SPECIMENOrdering Facility: [facility] Address: [address] [place] [address] Performed By: #### A LLBG ####[facility]ORATORYCLIA [id number] [address] [place] pH (Bld) 7.41 [pH] Normal 7.35-7.45 [facility] Comment on above: Order Comment: Speci men Type: ARTERIAL BLOOD SPECIMENOrdering Facility: [facility] Address: [address] [place] [address] Performed By: #### A LLBG ####[facility]ORATORYCLIA [id number] [address] pH adjusted to patient's actual temperature (Bld) 7.40 Normal 7.35-7.45 [facility] Comment on above: Order Comment: Speci men Type: ARTERIAL BLOOD SPECIMENOrdering Facility: [facility] Address: [address] [place] [address] Performed By: #### A LLBG ####[facility]ORATORYCLIA [id number] [address] Potassium [Moles/Vol] 3.8 mmol/L Normal 3.5-5.0 [facility] Comment on above: Order Comment: Speci men Type: ARTERIAL BLOOD SPECIMENOrdering Facility: [facility] Address: [address] [place] [address] Performed By: #### A LLBG ####[facility]ORATORYCLIA [id number] [address] STATES [facility] Sodium [Moles/Vol] 166 mmol/L High 136-144 [facility] Comment on above: Order Comment: Speci men Type: ARTERIAL BLOOD SPECIMENOrdering Facility: [facility] Address: [address] [place] [address] Performed By: #### A LLBG ####[facility]ORATORYCLIA [id number] [place] [address] [place] Bacteria Bld Culton 06-15-19 Bacteria identified Cx Nom (Bld) CULTURE, BLOOD: No growth 5 days Normal [facility] Comment on above: Performed By: #### 6 00-7 ####[facility] LABORATORYCLIA [id number] [place] [address] [place] Basic metabolic 2000 panelon 06-15-2021 Anion gap [Moles/Vol] 9 mmol/L Normal 9-18 [facility] Comment on above: Order Comment: Speci men Type: BLOOD SPECIMEN Performed By: #### 2 4321-2, 2776-05, ####[facility]ORATORYCLIA [id number] [place], [place] [address] [place] [address] [place] [facility] Calcium [Mass/Vol] 9.0 mg/dL Normal 8.5-10.2 [facility] Comment on above: Order Comment: Speci men Type: BLOOD SPECIMEN Performed By: #### 2 4321-2, 2776-05, ####[facility]ORATORYCLIA [id number] [address] [place] Chloride [Moles/Vol] 125 mmol/L High 97-105 [facility] Comment on above: Order Comment: Speci men Type: BLOOD SPECIMEN Performed By: #### 2 4321-2, 2776-05, ####[facility]ORATORYCLIA [id number] [address] [place] CO2 [Moles/Vol] 29 mmol/L Normal 22-30 [facility] Comment on above: Order Comment: Speci men Type: BLOOD SPECIMEN Performed By: #### 2 4321-2, 2776-05, ####[facility]ORATORYCLIA [id number] [address] [place] Creatinine [Mass/Vol] 0.81 mg/dL Normal 0.73-1.22 [facility] Comment on above: Order Comment: Speci men Type: BLOOD SPECIMEN Performed By: #### 2 4321-2, 2776-05, ####[facility]ORATORYCLIA [id number] [place] [address] [place] GFR/1.73 sq M.predicted [...] has been calibrated to be traceable to IDHI. An eGFR <60 mL/min/1.73m2 for >3 months is consistent with chronic kidney disease. Refer to KDOQI guidelines for clinical interpretation. In patients with unstable renal function, e.g. those with acute kidney injury, the eGFR may not accurately reflect actual GFR. Performed By: #### 2 4321-2, 2776-05, ####[facility] HE[facility] SERVICESCLIA [id number] [place] [address] [place] Glucose [Mass/Vol] 124 [...] 1). Performed By: #### 2 4321-2, 2776-05, ####[facility]ORATORYCLIA [id number] [place] [address] [place] Potassium [Moles/Vol] 3.8 mmol/L Normal 3.7-5.1 [facility] Comment on above: Order Comment: Speci men Type: BLOOD SPECIMEN Performed By: #### 2 4321-2, 2776-05, ####[facility] LABORATORYCLIA [id number] [place] [address] [place] Sodium [Moles/Vol] 163 mmol/L High 136-144 [facility] Comment on above: Order Comment: Speci men Type: BLOOD SPECIMEN Performed By: #### 2 4321-2, 2776-, ####[facility]ORATORYCLIA [id number] [place], [place] [address] [place] [address] [place] Urea nitrogen [Mass/Vol] 35 mg/dL High 9-24 [facility] Comment on above: Order Comment: Speci men Type: BLOOD SPECIMEN Performed By: #### 2 4321-2, 2776-, ####[facility]ORATORYCLIA [id number] [address] [place] CBC panel Auto (Bld)on 06-15 Erythrocyte distribution width (RBC) [Ratio] 16.3 % High 11.5-15.0 [facility] Comment on above: Order Comment: Speci men Type: BLOOD SPECIMENOrdering Facility: [facility] Address: [address] [place] [address] Performed By: #### 5 8410-2 ####[facility]ORATORYCLIA [id number] [address] [place] Hematocrit (Bld) [Volume fraction] 30.0 % Low 39.0-51.0 [facility] Comment on above: Order Comment: Speci men Type: BLOOD SPECIMENOrdering Facility: [facility] Address: [address] [place] [address] Performed By: #### 5 8410-2 ####[facility]ORATORYCLIA [id number] [address] [place] Hemoglobin (Bld) [Mass/Vol] 8.9 g/dL Low 13.0-17.0 [facility] Comment on above: Order Comment: Speci men Type: BLOOD SPECIMENOrdering Facility: [facility] Address: [address] [place] [address] Performed By: #### 5 8410-2 ####[facility]ORATORYCLIA [id number] [address] MCH (RBC) [Entitic mass] 28.7 pg Normal 26.0-34.0 [facility] Comment on above: Order Comment: Speci men Type: BLOOD SPECIMENOrdering Facility: [facility] Address: [address] [place] [address] Performed By: #### 5 8410-2 ####[facility]ORATORYCLIA [id number] [address] MCHC (RBC) [Mass/Vol] 29.7 g/dL Low 30.5-36.0 [facility] Comment on above: Order Comment: Speci men Type: BLOOD SPECIMENOrdering Facility: [facility] Address: [address] [place] [address] Performed By: #### 5 8410-2 ####[facility]ORATORYCLIA [id number] [address] MCV (RBC) [Entitic vol] 96.8 fL Normal 80.0-100.0 [facility] Comment on above: Order Comment: Speci men Type: BLOOD SPECIMENOrdering Facility: [facility] Address: [address] [place] [address] Performed By: #### 5 8410-2 ####[facility]ORATORYCLIA [id number] [address] Nucleated RBC (Bld) [#/Vol] 10*3/uL Normal <0.01 [facility] Comment on above: Order Comment: Speci men Type: BLOOD SPECIMENOrdering Facility: [facility] Address: [address] [place] [address] Performed By: #### 5 8410-2 ####[facility]ORATORYCLIA [id number] [address] Platelet mean volume (Bld) [Entitic vol] 12.3 fL Normal 9.0-12.7 [facility] Comment on above: Order Comment: Speci men Type: BLOOD SPECIMENOrdering Facility: [facility] Address: [address] [address] Performed By: #### 5 8410-2 ####[facility]ORATORYCLIA [id number] [address] Platelets (Bld) [#/Vol] 226 10*3/uL Normal 150-400 [facility] Comment on above: Order Comment: Speci men Type: BLOOD SPECIMENOrdering Facility: [facility] Address: [address] [place] [address] Performed By: #### 5 8410-2 ####[facility]ORATORYCLIA [id number] [address] RBC (Bld) [#/Vol] 3.10 10*6/uL Low 4.20-6.00 [facility] Comment on above: Order Comment: Speci men Type: BLOOD SPECIMENOrdering Facility: [facility] Address: [address] [place] [address] Performed By: #### 5 8410-2 ####[facility]ORATORYCLIA [id number] [address] WBC (Bld) [#/Vol] 10.77 10*3/uL Normal 3.70-11.00 [facility] Comment on above: Order Comment: Speci men Type: BLOOD SPECIMENOrdering Facility: [facility] Address: [address] [place] [address] Performed By: #### 5 8410-2 ####[facility]ORATORYCLIA [id number] [address] Erythrocyte distribution width (RBC) [Ratio] 16.2 % High 11.5-15.0 [facility] Comment on above: Order Comment: Speci men Type: BLOOD SPECIMENOrdering Facility: [facility] Address: [address] [place] [address] Performed By: #### 5 8410-2 ####[facility]ORATORYCLIA [id number] [address] Hematocrit (Bld) [Volume fraction] 34.8 % Low 39.0-51.0 [facility] Comment on above: Order Comment: Speci men Type: BLOOD SPECIMENOrdering Facility: [facility] Address: [address] [place] [address] Performed By: #### 5 8410-2 ####[facility]ORATORYCLIA [id number] [address] STATES OF [facility] Hemoglobin (Bld) [Mass/Vol] 10.0 g/dL Low 13.0-17.0 [facility] Comment on above: Order Comment: Speci men Type: BLOOD SPECIMENOrdering Facility: [facility] Address: [address] [place] [address] Performed By: #### 5 8410-2 ####[facility]ORATORYCLIA [id number] [address] OF [facility] MCH (RBC) [Entitic mass] 27.5 pg Normal 26.0-34.0 [facility] Comment on above: Order Comment: Speci men Type: BLOOD SPECIMENOrdering Facility: [facility] Address: [address] [place] [address] Performed By: #### 5 8410-2 ####[facility]ORATORYCLIA [id number] [address] STATES OF [facility] MCHC (RBC) [Mass/Vol] 28.7 g/dL Low 30.5-36.0 [facility] Comment on above: Order Comment: Speci men Type: BLOOD SPECIMENOrdering Facility: [facility] Address: [address] [place] [address] Performed By: #### 5 8410-2 ####[facility]ORATORYCLIA [id number] [address] MCV (RBC) [Entitic vol] 95.6 fL Normal 80.0-100.0 [facility] Comment on above: Order Comment: Speci men Type: BLOOD SPECIMENOrdering Facility: [facility] Address: [address] [place] [address] Performed By: #### 5 8410-2 ####[facility]ORATORYCLIA [id number] [address] Nucleated RBC (Bld) [#/Vol] 10*3/uL Normal <0.01 [facility] Comment on above: Order Comment: Speci men Type: BLOOD SPECIMENOrdering Facility: [facility] Address: [address] [place] [address] Performed By: #### 5 8410-2 ####[facility]ORATORYCLIA [id number] [address] [place] Platelet mean volume (Bld) [Entitic vol] 11.9 fL Normal 9.0-12.7 [facility] Comment on above: Order Comment: Speci men Type: BLOOD SPECIMENOrdering Facility: [facility] Address: [address] [place] [address] Performed By: #### 5 8410-2 ####[facility]ORATORYCLIA [id number] [address] [place] Platelets (Bld) [#/Vol] 246 10*3/uL Normal 150-400 [facility] Comment on above: Order Comment: Speci men Type: BLOOD SPECIMENOrdering Facility: [facility] Address: [address] [place] [address] Performed By: #### 5 8410-2 ####[facility]ORATORYCLIA [id number] [address] [place] RBC (Bld) [#/Vol] 3.64 10*6/uL Low 4.20-6.00 [facility] Comment on above: Order Comment: Speci men Type: BLOOD SPECIMENOrdering Facility: [facility] Address: [address] [place] [address] Performed By: #### 5 8410-2 ####[facility]ORATORYCLIA [id number] [address] [place] WBC (Bld) [#/Vol] 11.45 10*3/uL High 3.70-11.00 [facility] Comment on above: Order Comment: Speci men Type: BLOOD SPECIMENOrdering Facility: [facility] Address: [address] [place] [address] Performed By: #### 5 8410-2 ####[facility]ORATORYCLIA [id number] [address] Erythrocyte distribution width (RBC) [Ratio] 15.9 % High 11.5-15.0 [facility] Comment on above: Order Comment: Speci men Type: BLOOD SPECIMEN Performed By: #### 5 8410-2 ####[facility]ORATORYCLIA [id number] [address] Hematocrit (Bld) [Volume fraction] 35.8 % Low 39.0-51.0 [facility] Comment on above: Order Comment: Speci men Type: BLOOD SPECIMEN Performed By: #### 5 8410-2 ####[facility]ATORYCLIA [id number] [address] Hemoglobin (Bld) [Mass/Vol] 10.4 g/dL Low 13.0-17.0 [facility] Comment on above: Order Comment: Speci men Type: BLOOD SPECIMEN Performed By: #### 5 8410-2 ####[facility]ORATORYCLIA [id number] [address] MCH (RBC) [Entitic mass] 28.0 pg Normal 26.0-34.0 [facility] Comment on above: Order Comment: Speci men Type: BLOOD SPECIMEN Performed By: #### 5 8410-2 ####[facility]ORATORYCLIA [id number] [address] OF [facility] MCHC (RBC) [Mass/Vol] 29.1 g/dL Low 30.5-36.0 [facility] Comment on above: Order Comment: Speci men Type: BLOOD SPECIMEN Performed By: #### 5 8410-2 ####[facility]ATORYCLIA [id number] [address] MCV (RBC) [Entitic vol] 96.2 fL Normal 80.0-100.0 [facility] Comment on above: Order Comment: Speci men Type: BLOOD SPECIMEN Performed By: #### 5 8410-2 ####[facility]ATORYCLIA [id number] [address] Nucleated RBC (Bld) [#/Vol] 10*3/uL Normal <0.01 [facility] Comment on above: Order Comment: Speci men Type: BLOOD SPECIMEN Performed By: #### 5 8410-2 ####[facility]ORATORYCLIA [id number] [address] Platelet mean volume (Bld) [Entitic vol] 11.6 fL Normal 9.0-12.7 [facility] Comment on above: Order Comment: Speci men Type: BLOOD SPECIMEN Performed By: #### 5 8410-2 ####[facility]ORATORYCLIA [id number] [address] Platelets (Bld) [#/Vol] 265 10*3/uL Normal 150-400 [facility] Comment on above: Order Comment: Speci men Type: BLOOD SPECIMEN Performed By: #### 5 8410-2 ####[facility]ATORYCLIA [id number] [address] RBC (Bld) [#/Vol] 3.72 10*6/uL Low 4.20-6.00 [facility] Comment on above: Order Comment: Speci men Type: BLOOD SPECIMEN Performed By: #### 5 8410-2 ####[facility]ORATORYCLIA [id number] [address] WBC (Bld) [#/Vol] 12.24 10*3/uL High 3.70-11.00 [facility] Comment on above: Order Comment: Speci men Type: BLOOD SPECIMEN Performed By: #### 5 8410-2 ####[facility]ORATORYCLIA [id number] [address] [place] CONSULTon 06-15-2021 CONSULT Normal [...] Comment: Speci men Type: URINE SPECIMENOrdering Facility: [facility] Address: [address] [place] [address] Performed By: #### U TPR, 22572-3, 84790-7, 92786-4 ####[facility] LABORATORYCLIA [id number] [address] Comprehensive metabolic 2000 panelon 06-15-2021 Albumin [Mass/Vol] 2.8 g/dL Low 3.9-4.9 [facility] Comment on above: Order Comment: Speci men Type: BLOOD SPECIMENOrdering Facility: [facility] Address: [address] [place] [address] Performed By: #### 2 4323-8 ####[facility]ORATORYCLIA [id number] [address] [place] ALP [Catalytic activity/Vol] 74 U/L Normal 38-113 [facility] Comment on above: Order Comment: Speci men Type: BLOOD SPECIMENOrdering Facility: [facility] Address: [address] [place] [address] Performed By: #### 2 4323-8 ####[facility] LABORATORYCLIA [id number] [address] [place] ALT With P-5'-P [Catalytic activity/Vol] 50 U/L Normal 10-54 [facility] Comment on above: Order Comment: Speci men Type: BLOOD SPECIMENOrdering Facility: [facility] Address: [address] [place] [address] Performed By: #### 2 4323-8 ####[facility] LABORATORYCLIA [id number] [place] [address] [place] Anion gap [Moles/Vol] 12 mmol/L Normal 9-18 [facility] Comment on above: Order Comment: Speci men Type: BLOOD SPECIMENOrdering Facility: [facility] Address: [address] [place] [address] Performed By: #### 2 4323-8 ####[facility]ORATORYCLIA [id number] [address] [place] AST With P-5'-P [Catalytic activity/Vol] 36 U/L Normal 14-40 [facility] Comment on above: Order Comment: Speci men Type: BLOOD SPECIMENOrdering Facility: [facility] Address: [address] [place] [address] Performed By: #### 2 4323-8 ####[facility] LABORATORYCLIA [id number] [place] [address] [place] Bilirubin [Mass/Vol] 0.5 mg/dL Normal 0.2-1.3 [facility] Comment on above: Order Comment: Speci men Type: BLOOD SPECIMENOrdering Facility: [facility] Address: [address] [place] [address] Performed By: #### 2 4323-8 ####[facility]ORATORYCLIA [id number] [address] [place] Calcium [Mass/Vol] 8.8 mg/dL Normal 8.5-10.2 [facility] Comment on above: Order Comment: Speci men Type: BLOOD SPECIMENOrdering Facility: [facility] Address: [address] [place] [address] Performed By: #### 2 4323-8 ####[facility] LABORATORYCLIA [id number] [address] [place] Chloride [Moles/Vol] 126 mmol/L High 97-105 [facility] Comment on above: Order Comment: Speccara feldman Type: BLOOD SPECIMENOrdering Facility: [facility] Address: [address] [place] [address] Performed By: #### 2 4323-8 ####[facility]ORATORYCLIA [id number] [address] [place] CO2 [Moles/Vol] 24 mmol/L Normal 22-30 [facility] Comment on above: Order Comment: Johni francia Type: BLOOD SPECIMENOrdering Facility: [facility] Address: [address] [place] [address] Performed By: #### 2 4323-8 ####[facility] LABORATORYCLIA [id number] [address] [place] Creatinine [Mass/Vol] 0.84 mg/dL Normal 0.73-1.22 [facility] Comment on above: Order Comment: Johncara feldman Type: BLOOD SPECIMENOrdering Facility: [facility] Address: [address] [place] [address] Performed By: #### 2 4323-8 ####[facility]ORATORYCLIA [id number] [address] [place] GFR/1.73 sq M.predicted MDRD (S/P/Bld) [Vol rate/Area] mL/min/{1.73_m2} Normal [facility] Comment on above: Order Comment: Johncara feldman Type: BLOOD SPECIMENOrdering Facility: [facility] Address: [address] [place] [address] Result Comment: >60e GFR (Estimated GFR) Units [...] actual GFR. Performed By: #### 2 4323-8 ####[facility] LABORATORYCLIA [id number] [place] [address] [place] Glucose [Mass/Vol] 142 mg/dL High 74-99 [facility] Comment on above: Order Comment: Shira feldman Type: BLOOD SPECIMENOrdering Facility: [facility] Address: [address] [place] [address] Result Comment: The [employer] (ADA) [...] 2016.39(Suppl 1). Performed By: #### 2 4323-8 ####[facility] LABORATORYCLIA [id number] [place] [address] [place] Potassium [Moles/Vol] 3.8 mmol/L Normal 3.7-5.1 [facility] Comment on above: Order Comment: Shira feldman Type: BLOOD SPECIMENOrdering Facility: [facility] Address: [address] [address] Performed By: #### 2 4323-8 ####[facility] LABORATORYCLIA [id number] [place] [address] [place] Protein [Mass/Vol] 6.1 g/dL Low 6.3-8.0 [facility] Comment on above: Order Comment: Shira feldman Type: BLOOD SPECIMENOrdering Facility: [facility] Address: [address] [address] Performed By: #### 2 4323-8 ####[facility] LABORATORYCLIA [id number] [place] [address] [place] Sodium [Moles/Vol] 162 mmol/L High 136-144 [facility] Comment on above: Order Comment: Speci men Type: BLOOD SPECIMENOrdering Facility: [facility] Address: [address] [place] [address] Performed By: #### 2 4323-8 ####[facility] LABORATORYCLIA [id number] [place] [address] [place] Urea nitrogen [Mass/Vol] 33 mg/dL High 9-24 [facility] Comment on above: Order Comment: Speci men Type: BLOOD SPECIMENOrdering Facility: [facility] Address: [address] [place] [address] Performed By: #### 2 4323-8 ####[facility] LABORATORYCLIA [id number] [address] [place] Creatinine Unsp time (U) [Ma ss/Vol]on 06-15-2021 Creatinine (U) [Mass/Vol] 87.0 mg/dL Normal 46.8-314.5 [facility] Comment on above: Order Comment: Speci men Type: URINE SPECIMENOrdering Facility: [facility] Address: [address] [place] [address] Performed By: #### U TPR, 15586-2, 13554-2, 79616-8 ####[facility] LABORATORYCLIA [id number] [address] [place] HIGH SENSITIVITY TROPONIN To n 06-15-2021 HIGH SENSITIVITY TAMIKO 23 ng/L High <12 [facility] Comment on above: Order Comment: Speci men Type: BLOOD SPECIMENOrdering Facility: [facility] Address: [address] [place] [address] Result Comment: When assessing risk for acute [...] day MACE. Performed By: #### P JULIANNE, 04825-0, HSTNT ####[facility] LABORATORYCLIA [id number] [address] STATES OF [facility] Lactate (Bld) [Moles/Vol]on 06-15-2021 Lactate [Moles/Vol] 0.8 mmol/L Normal 0.5-2.2 [facility] Comment on above: Order Comment: Speci men Type: BLOOD SPECIMENOrdering Facility: [facility] Address: [address] [place] [address] Performed By: #### 3 2693-4 ####[facility] SERVICESCLIA [id number] [address] [place] Magnesium [facility]-ncon 06-15 Magnesium [Mass/Vol] 3.0 mg/dL High 1.7-2.3 [facility] Comment on above: Order Comment: Speci men Type: BLOOD SPECIMEN Performed By: #### 2 4321-2, 2777-1, 84980-9 ####[facility] LABORATORYCLIA [id number] [address] [facility] Natriuretic peptide.B prohormone N-Terminal [Mass/Vol] 265 pg/mL High <125 [facility] Comment on above: Order Comment: Speci men Type: BLOOD SPECIMENOrdering Facility: [facility] Address: [address] [address] Performed By: #### P JULIANNE, 16407-9, HSTNT ####[facility] LABORATORYCLIA [id number] [address] [place] Osmolality Uron 06-15-2021 Osmolality (U) [Osmolality] 606 mosm/kg Normal 50-1,200 [facility] Comment on above: Order Comment: Speci men Type: URINE SPECIMENOrdering Facility: [facility] Address: [address] [place] [address] Performed By: #### 2 695-5 ####[facility] LABORATORYCLIA [id number] [address] PROCALCITONIN (LAB)on 2021 Procalcitonin [Mass/Vol] 0.21 ng/mL High <0.09 [facility] Comment on above: Order Comment: Speci men Type: BLOOD SPECIMENOrdering Facility: [facility] Address: [address] [place] [address] Result Comment: For a guided interpretation of test results, please visit the Change in Procalcitonin Calculator, [email or web address]. Performed By: #### P JULIANNE, 2951-2 ####[facility]ORATORYCLIA [id number] [address] Procalcitonin [Mass/Vol] 0.17 ng/mL High <0.09 [facility] Comment on above: Order Comment: Speci men Type: BLOOD SPECIMENOrdering Facility: [facility] Address: [address] [place] [address] Result Comment: For a guided interpretation of test results, please visit the Change in Procalcitonin Calculator, [email or web address]. Performed By: #### P JULIANNE, 64481-7, HSTNT ####[facility] LABORATORYCLIA [id number] [address] PROTEIN RANDOM URon 06-15-19 22 Protein (U) [Mass/Vol] 175 mg/dL High 0-[address] [facility] Comment on above: Order Comment: Speci men Type: URINE SPECIMENOrdering Facility: [facility] Address: [address] [place] [address] Performed By: #### U TPR, 17259-9, 37447-0, 44975-4 ####[facility]ORATORYCLIA [id number] [address] PT panel Coag (PPP)on 2021 INR Coag (PPP) [Relative time] 1.1 {INR} Normal <1.4 [facility] Comment on above: Order Comment: Shira feldman Type: BLOOD SPECIMENOrdering Facility: [facility] Address: [address] [place] [address] Result Comment: Yris min K Antagonist (VKA) [...] al. Chest 2012, 141:7S-47SNishimura RA, et al. [facility] 2017, 70: 252-289 Performed By: #### 3 4528-0, 61634-8 ####[facility] LABORATORYCLIA [id number] [place] [address] [place] PT Coag (PPP) [Time] 11.4 s Normal <13.1 [facility] Comment on above: Order Comment: Shira feldman Type: BLOOD SPECIMENOrdering Facility: [facility] Address: [address] [place], [place] [address] Performed By: #### 3 4528-0, 76979-7 ####[facility]ORATORYCLIA [id number] [place] [address] [place] Phosphate SerPl-mCncon 06-15 Phosphate [Mass/Vol] 2.6 mg/dL Low 2.7-4.8 [facility] Comment on above: Order Comment: Shira feldman Type: BLOOD SPECIMEN Performed By: #### 2 4321-2, 2777-1, 89353-4 ####[facility]ORATORYCLIA [id number] [place] [address] [place] Sodium ?Tm Ur-sCncon 022 Sodium Unsp time (U) [Moles/Vol] 34 mmol/L Normal 14-216 [facility] Comment on above: Order Comment: Speci men Type: URINE SPECIMENOrdering Facility: [facility] Address: [address] [place] [address] Performed By: #### U TPR, 43268-3, 60067-9, 58398-1 ####[facility]ORATORYCLIA [id number] [address] [place] Sodium SerPl-sCncon 06-15-19 22 Sodium [Moles/Vol] 159 mmol/L High 136-144 [facility] Comment on above: Order Comment: Speci men Type: BLOOD SPECIMENOrdering Facility: [facility] Address: [address] [place] [address] Performed By: #### P JULIANNE, 2951-2 ####[facility] LABORATORYCLIA [id number] [address] [place] THERAPY NTon 06-15-2021 THERAPY NT Normal [facility] Urinalysis complete panel (U )on 06-15-2021 Bacteria LM.HPF (Urine sed) [#/Area] None Seen Normal None Seen [facility] Comment on above: Order Comment: Speci men Type: URINE SPECIMENOrdering Facility: [facility] Address: [address] [place] [address] Performed By: #### 2 4356-8 ####[facility]ORATORYCLIA [id number] [address] [place] Bilirubin Ql (U) Negative Normal Negative [facility] Comment on above: Order Comment: Speci men Type: URINE SPECIMENOrdering Facility: [facility] Address: [address] [place] [address] Performed By: #### 2 4356-8 ####[facility]ORATORYCLIA [id number] [address] Clarity (Unsp spec) Cloudy Abnormal Clear [facility] Comment on above: Order Comment: Speci men Type: URINE SPECIMENOrdering Facility: [facility] Address: [address] [place] [address] Performed By: #### 2 4356-8 ####[facility]ORATORYCLIA [id number] [address] Color (U) Yellow Normal Yellow [facility] Comment on above: Order Comment: Speci men Type: URINE SPECIMENOrdering Facility: [facility] Address: [address] [place] [address] Performed By: #### 2 4356-8 ####[facility]ORATORYCLIA [id number] [address] Epithelial cells LM.HPF (Urine sed) [#/Area] 7.1 /[HPF] Normal [facility] Comment on above: Order Comment: Speci men Type: URINE SPECIMENOrdering Facility: [facility] Address: [address] [place] [address] Performed By: #### 2 4356-8 ####[facility]ORATORYCLIA [id number] [address] Glucose Test strip (U) [Mass/Vol] Negative Normal Negative [facility] Comment on above: Order Comment: Speci men Type: URINE SPECIMENOrdering Facility: [facility] Address: [address] [place] [address] Performed By: #### 2 4356-8 ####[facility]ORATORYCLIA [id number] [address] Granular casts (Urine sed) [#/Area] /[LPF] Abnormal 0 /LPF [facility] Comment on above: Order Comment: Speci men Type: URINE SPECIMENOrdering Facility: [facility] Address: [address] [place] [address] Performed By: #### 2 4356-8 ####[facility]ORATORYCLIA [id number] [address] [place] Hemoglobin Ql (U) Moderate Abnormal Negative [facility] Comment on above: Order Comment: Speci men Type: URINE SPECIMENOrdering Facility: [facility] Address: [address] [place] [address] Performed By: #### 2 4356-8 ####[facility]ORATORYCLIA [id number] [place] [address] [place] Hyaline casts (Urine sed) [#/Area] /[LPF] Abnormal 0 /LPF [facility] Comment on above: Order Comment: Speci men Type: URINE SPECIMENOrdering Facility: [facility] Address: [address] [place] [address] Performed By: #### 2 4356-8 ####[facility]ORATORYCLIA [id number] [address] STATES [facility] Ketones Ql (U) Negative Normal Negative [facility] Comment on above: Order Comment: Speci men Type: URINE SPECIMENOrdering Facility: [facility] Address: [address] [place] [address] Performed By: #### 2 4356-8 ####[facility]ORATORYCLIA [id number] [address] [place] Leukocyte esterase Test strip Ql (U) Negative Normal Negative [facility] Comment on above: Order Comment: Speci men Type: URINE SPECIMENOrdering Facility: [facility] Address: [address] [place] [address] Performed By: #### 2 4356-8 ####[facility]ATORYCLIA [id number] [place] [address] [place] Nitrite Ql (U) Negative Normal Negative [facility] Comment on above: Order Comment: Speci men Type: URINE SPECIMENOrdering Facility: [facility] Address: [facility] [address] Performed By: #### 2 4356-8 ####[facility]ATORYCLIA [id number] [address] pH (U) 6.0 [pH] Normal 5.0-8.0 [facility] Comment on above: Order Comment: Speci men Type: URINE SPECIMENOrdering Facility: [facility] Address: [address] [place] [address] Performed By: #### 2 4356-8 ####[facility]ORATORYCLIA [id number] [address] Protein (U) [Mass/Vol] 100 mg/dL Abnormal Negative [facility] Comment on above: Order Comment: Speci men Type: URINE SPECIMENOrdering Facility: [facility] Address: [address] [place] [address] Performed By: #### 2 4356-8 ####[facility] SERVICESCLIA [id number] [address] STATES [facility] RBC LM.HPF (Urine sed) [#/Area] 0-3 /HPF Normal 0-3 /HPF [facility] Comment on above: Order Comment: Speci men Type: URINE SPECIMENOrdering Facility: [facility] Address: [address] [place] [address] Performed By: #### 2 4356-8 ####[facility]ORATORYCLIA [id number] [address] Specific gravity (U) [Rel density] 1.024 Normal 1.005-1.030 [facility] Comment on above: Order Comment: Speci men Type: URINE SPECIMENOrdering Facility: [facility] Address: [address] [place] [address] Performed By: #### 2 4356-8 ####[facility]ORATORYCLIA [id number] [address] Urobilinogen Ql (U) 0.2 EU/dL Normal 0.2-1.0 EU/dL [facility] Comment on above: Order Comment: Speci men Type: URINE SPECIMENOrdering Facility: [facility] Address: [address] [place] [address], [place] [address] Performed By: #### 2 4356-8 ####[facility]ORATORYCLIA [id number] [address] STATES [facility] WBC LM.HPF (Urine sed) [#/Area] 0-5 /HPF Normal 0-5 /HPF [facility] Comment on above: Order Comment: Speci men Type: URINE SPECIMENOrdering Facility: [facility] Address: [address] [place], [place] [address] [address] Performed By: #### 2 4356-8 ####[facility] LABORATORYCLIA [id number] [address] OF [facility] XR CHEST 1V FRONTALon 2021 XR CHEST 1V FRONTAL Normal [facility] XR CHEST 1V FRONTAL PORTon 0 06-15-2021 XR CHEST 1V FRONTAL PORT Normal [facility] XR CHEST 1V FRONTAL PORT Normal [facility] aPTT PPPon 06-15-2021 aPTT Coag (PPP) [Time] 30.9 s Normal 23.0-32.[address] [facility] Comment on above: Order Comment: Speci men Type: BLOOD SPECIMENOrdering Facility: [facility] Address: [facility] [address] [address] Performed By: #### 3 4528-0, 86999-0 ####[facility]ORATORYCLIA [id number] [address] STATES OF [facility] Basic metabolic 2000 panelon 06-14-2021 Anion gap [Moles/Vol] 8 mmol/L Low 9-18 [facility] Comment on above: Order Comment: Speci men Type: BLOOD SPECIMEN Performed By: #### 2 4321-2, 2777-1, 64085-6 ####[facility]ORATORYCLIA [id number] [address] STATES OF [facility] Calcium [Mass/Vol] 8.9 mg/dL Normal 8.5-10.2 [facility] Comment on above: Order Comment: Speci men Type: BLOOD SPECIMEN Performed By: #### 2 4321-2, 2776-05, ####[facility]ORATORYCLIA [id number] [place], [place] [address] [place] [address] [place] [facility] Chloride [Moles/Vol] 121 mmol/L High 97-105 [facility] Comment on above: Order Comment: Speci men Type: BLOOD SPECIMEN Performed By: #### 2 4321-2, 2776-05, ####[facility]ORATORYCLIA [id number] [address] [place] CO2 [Moles/Vol] 30 mmol/L Normal 22-30 [facility] Comment on above: Order Comment: Speci men Type: BLOOD SPECIMEN Performed By: #### 2 4321-2, 2776-05, ####[facility]ORATORYCLIA [id number] [address] STATES OF [facility] Creatinine [Mass/Vol] 0.78 mg/dL Normal 0.73-1.22 [facility] Comment on above: Order Comment: Speci men Type: BLOOD SPECIMEN Performed By: #### 2 4321-2, 2776-05, ####[facility]ORATORYCLIA [id number] [address] [place] GFR/1.73 sq M.predicted [...] GFR. Performed By: #### 2 4321-2, 2776-05, ####[facility]ORATORYCLIA [id number] [place] [address] [place] Glucose [Mass/Vol] 132 [...] 1). Performed By: #### 2 4321-2, 2776-05, ####[facility]ORATORYCLIA [id number] [place] [address] [place] Potassium [Moles/Vol] 3.7 mmol/L Normal 3.7-5.1 [facility] Comment on above: Order Comment: Speci men Type: BLOOD SPECIMEN Performed By: #### 2 1-2, 2776-05, ####[facility]ORATORYCLIA [id number] [place] [address] [place] Sodium [Moles/Vol] 159 mmol/L High 136-144 [facility] Comment on above: Order Comment: Speci men Type: BLOOD SPECIMEN Performed By: #### 2 4321-2, 2776-05, ####[facility]ORATORYCLIA [id number] [place] [address] [place] Urea nitrogen [Mass/Vol] 35 mg/dL High 9-24 [facility] Comment on above: Order Comment: Speci men Type: BLOOD SPECIMEN Performed By: #### 2 1-2, 2776-05, 13366-0 ####[facility]ORATORYCLIA [id number] [address] CASE MANAGEMon 06-14-2021 CASE MANAGEM Normal [facility] CBC panel Auto (Bld)on 06-14 Erythrocyte distribution width (RBC) [Ratio] 16.2 % High 11.5-15.0 [facility] Comment on above: Order Comment: Speci men Type: BLOOD SPECIMEN Performed By: #### 5 8410-2 ####[facility]ORATORYCLIA [id number] [address] Hematocrit (Bld) [Volume fraction] 35.2 % Low 39.0-51.0 [facility] Comment on above: Order Comment: Speci men Type: BLOOD SPECIMEN Performed By: #### 5 8410-2 ####[facility]ORATORYCLIA [id number] [address] Hemoglobin (Bld) [Mass/Vol] 10.1 g/dL Low 13.0-17.0 [facility] Comment on above: Order Comment: Speci men Type: BLOOD SPECIMEN Performed By: #### 5 8410-2 ####[facility]ORATORYCLIA [id number] [address] MCH (RBC) [Entitic mass] 27.2 pg Normal 26.0-34.0 [facility] Comment on above: Order Comment: Speci men Type: BLOOD SPECIMEN Performed By: #### 5 8410-2 ####[facility]ORATORYCLIA [id number] [address] MCHC (RBC) [Mass/Vol] 28.7 g/dL Low 30.5-36.0 [facility] Comment on above: Order Comment: Speci men Type: BLOOD SPECIMEN Performed By: #### 5 8410-2 ####[facility]ORATORYCLIA [id number] [address] MCV (RBC) [Entitic vol] 94.6 fL Normal 80.0-100.0 [facility] Comment on above: Order Comment: Speci men Type: BLOOD SPECIMEN Performed By: #### 5 8410-2 ####[facility]ORATORYCLIA [id number] [address] Nucleated RBC (Bld) [#/Vol] 10*3/uL Normal <0.01 [facility] Comment on above: Order Comment: Speci men Type: BLOOD SPECIMEN Performed By: #### 5 8410-2 ####[facility]ORATORYCLIA [id number] [address] Platelet mean volume (Bld) [Entitic vol] 11.0 fL Normal 9.0-12.7 [facility] Comment on above: Order Comment: Speci men Type: BLOOD SPECIMEN Performed By: #### 5 8410-2 ####[facility]ORATORYCLIA [id number] [address] Platelets (Bld) [#/Vol] 287 10*3/uL Normal 150-400 [facility] Comment on above: Order Comment: Speci men Type: BLOOD SPECIMEN Performed By: #### 5 8410-2 ####[facility]ORATORYCLIA [id number] [address] RBC (Bld) [#/Vol] 3.72 10*6/uL Low 4.20-6.00 [facility] Comment on above: Order Comment: Speci men Type: BLOOD SPECIMEN Performed By: #### 5 8410-2 ####[facility]ORATORYCLIA [id number] [address] WBC (Bld) [#/Vol] 12.23 10*3/uL High 3.70-11.00 [facility] Comment on above: Order Comment: Speci men Type: BLOOD SPECIMEN Performed By: #### 5 8410-2 ####[facility]ORATORYCLIA [id number] [address] Comprehensive metabolic 2000 panelon 06-14-2021 Albumin [Mass/Vol] 3.1 g/dL Low 3.9-4.9 [facility] Comment on above: Order Comment: Speci men Type: BLOOD SPECIMEN Performed By: #### 2 4323-8, HSTNT, 2776-05, ####[facility]ORATORYCLIA [id number] [place], [place] [id number] [place] [address] ALP [Catalytic activity/Vol] 72 U/L Normal 38-113 [facility] Comment on above: Order Comment: Speci men Type: BLOOD SPECIMEN Performed By: #### 2 4323-8, HSTNT, 2776-05, ####[facility]ORATORYCLIA [id number] [address] ALT With P-5'-P [Catalytic activity/Vol] 57 U/L High 10-54 [facility] Comment on above: Order Comment: Speci men Type: BLOOD SPECIMEN Performed By: #### 2 4323-8, HSTNT, 2776-05, ####[facility]ORATORYCLIA [id number] [address] Anion gap [Moles/Vol] 9 mmol/L Normal 9-18 [facility] Comment on above: Order Comment: Speci men Type: BLOOD SPECIMEN Performed By: #### 2 4323-8, HSTNT, 2776-05, ####[facility]ORATORYCLIA [id number] [address] AST With P-5'-P [Catalytic activity/Vol] 33 U/L Normal 14-40 [facility] Comment on above: Order Comment: Speci men Type: BLOOD SPECIMEN Performed By: #### 2 4323-8, HSTNT, 2776-05, ####[facility]ORATORYCLIA [id number] [address] OF [facility] Bilirubin [Mass/Vol] 0.5 mg/dL Normal 0.2-1.3 [facility] Comment on above: Order Comment: Speci men Type: BLOOD SPECIMEN Performed By: #### 2 4323-8, HSTNT, 2776-05, ####[facility]ORYCLIA [id number] [address] STATES OF [facility] Calcium [Mass/Vol] 8.8 mg/dL Normal 8.5-10.2 [facility] Comment on above: Order Comment: Speci men Type: BLOOD SPECIMEN Performed By: #### 2 4323-8, HSTNT, 2776-05, ####[facility]ATORYCLIA [id number] [address] STATES OF [facility] Chloride [Moles/Vol] 124 mmol/L High 97-105 [facility] Comment on above: Order Comment: Speci men Type: BLOOD SPECIMEN Performed By: #### 2 4323-8, HSTNT, 2776-05, ####[facility]ORYCLIA [id number] [address] STATES OF [facility] CO2 [Moles/Vol] 29 mmol/L Normal 22-30 [facility] Comment on above: Order Comment: Speci men Type: BLOOD SPECIMEN Performed By: #### 2 4323-8, HSTNT, 2776-05, ####[facility]ORYCLIA [id number] [address] [place] Creatinine [Mass/Vol] 0.73 mg/dL Normal 0.73-1.22 [facility] Comment on above: Order Comment: Speci men Type: BLOOD SPECIMEN Performed By: #### 2 4323-8, HSTNT, 2776-05, ####[facility]ATORYCLIA [id number] [address] [place] GFR/1.73 sq M.predicted [...] Performed By: #### 2 4323-8, HSTNT, 2776-05, ####[facility]ATORYCLIA [id number] [place] [address] [place] Glucose [Mass/Vol] 137 [...] Performed By: #### 2 4323-8, HSTNT, 2776-05, ####[facility]ORYCLIA [id number] [place] [address] [place] Potassium [Moles/Vol] 3.6 mmol/L Low 3.7-5.1 [facility] Comment on above: Order Comment: Speci men Type: BLOOD SPECIMEN Performed By: #### 2 4323-8, HSTNT, 2776-05, ####[facility]ATORYCLIA [id number] [address] Protein [Mass/Vol] 5.9 g/dL Low 6.3-8.0 [facility] Comment on above: Order Comment: Speci men Type: BLOOD SPECIMEN Performed By: #### 2 4323-8, HSTNT, 2777-1, 56112-4 ####[facility]ORATORYCLIA [id number] [address] Sodium [Moles/Vol] 162 mmol/L High 136-144 [facility] Comment on above: Order Comment: Speci men Type: BLOOD SPECIMEN Performed By: #### 2 4323-8, HSTNT, 2776-, ####[facility]ATORYCLIA [id number] [address] Urea nitrogen [Mass/Vol] 33 mg/dL High 9-24 [facility] Comment on above: Order Comment: Speci men Type: BLOOD SPECIMEN Performed By: #### 2 4323-8, HSTNT, 2776-05, ####[facility]ATORYCLIA [id number] [address] HIGH SENSITIVITY TROPONIN To n 06-14-2021 [...] day MACE. Performed By: #### H STNT ####[facility]ORATORYCLIA [id number] [address] HIGH SENSITIVITY TAMIKO 22 ng/L High [...] Performed By: #### 2 4323-8, HSTNT, 2776-05, ####[facility]ORYCLIA [id number] [address] Magnesium SerPl-mCncon 06-14 Magnesium [Mass/Vol] 2.9 mg/dL High 1.7-2.3 [facility] Comment on above: Order Comment: Speci men Type: BLOOD SPECIMEN Performed By: #### 2 4323-8, HSTNT, 2776-05, ####[facility]ATORYCLIA [id number] [address] Magnesium [Mass/Vol] 3.0 mg/dL High 1.7-2.3 [facility] Comment on above: Order Comment: Speci men Type: BLOOD SPECIMEN Performed By: #### 2 4321-2, 2776-05, ####[facility]ATORYCLIA [id number] [address] NURSING PROGon 06-14-2021 NURSING PROG Normal [facility] NUTRITIONon 06-14-2021 NUTRITION Normal [facility] Phosphate SerPl-mCncon 06-14 Phosphate [Mass/Vol] 2.4 mg/dL Low 2.7-4.8 [facility] Comment on above: Order Comment: Speci men Type: BLOOD SPECIMEN Performed By: #### 2 4323-8, HSTNT, 2776-05, ####[facility]ORYCLIA [id number] [address] Phosphate [Mass/Vol] 3.2 mg/dL Normal 2.7-4.8 [facility] Comment on above: Order Comment: Speci men Type: BLOOD SPECIMEN Performed By: #### 2 4321-2, 2776-05, ####[facility]ATORYCLIA [id number] [place], [place] [id number] [place] [address] [place] THERAPY NTon 06-14-2021 THERAPY NT Normal [facility] THERAPY NT Normal [facility] THERAPY NT Normal [facility] US DVT LOWER BILon US DVT LOWER RAINER Normal [facility] ALLIED HEALTHon 06-13-2021 ALLIED HEALTH Normal [facility] Basic metabolic 2000 panelon 06-13-2021 Anion gap [Moles/Vol] 7 mmol/L Low 9-18 [facility] Comment on above: Order Comment: Speci men Type: BLOOD SPECIMEN Performed By: #### 2 4321-2, , 2776-05 ####[facility]ATORYCLIA [id number] [address] STATES OF [facility] Calcium [Mass/Vol] 8.8 mg/dL Normal 8.5-10.2 [facility] Comment on above: Order Comment: Speci men Type: BLOOD SPECIMEN Performed By: #### 2 4321-2, , 2776-05 ####[facility]ATORYCLIA [id number] [address] [place] Chloride [Moles/Vol] 120 mmol/L High 97-105 [facility] Comment on above: Order Comment: Speci men Type: BLOOD SPECIMEN Performed By: #### 2 4321-2, , 2776-05 ####[facility]ATORYCLIA [id number] [place] [id number] [place] CO2 [Moles/Vol] 28 mmol/L Normal 22-30 [facility] Comment on above: Order Comment: Speci men Type: BLOOD SPECIMEN Performed By: #### 2 4321-2, , 2776-05 ####[facility]ATORYCLIA [id number] [place] [address] [place] Creatinine [Mass/Vol] 0.78 mg/dL Normal 0.73-1.22 [facility] Comment on above: Order Comment: Speci [facility] Type: BLOOD SPECIMEN Performed By: #### 2 4321-2, 83886-5, 2777-1 ####[facility]ATORYCLIA [id number] [place] [address] [place] GFR/1.73 sq M.predicted [...] actual GFR. Performed By: #### 2 4321-2, 21574-3, 277-1 ####[facility]ORATORYCLIA [id number] [place] [address] [place] Glucose [Mass/Vol] 126 mg/dL High 74-99 [facility] Comment on above: Order Comment: [facility] Type: BLOOD SPECIMEN Result Comment: The [employer] [...] 2 4321-2, , 2776-05 ####[facility]ATORYCLIA [id number] [place], [place] [id number] [place] [address] [place] [facility] Potassium [Moles/Vol] 3.6 mmol/L Low 3.7-5.1 [facility] Comment on above: Order Comment: Speci men Type: BLOOD SPECIMEN Performed By: #### 2 4321-2, , 2776-05 ####[facility]ATORYCLIA [id number] [place], [place] [address] [place] [address] [place] Sodium [Moles/Vol] 155 mmol/L High 136-144 [facility] Comment on above: Order Comment: Speci men Type: BLOOD SPECIMEN Performed By: #### 2 1-2, , 2776-05 ####[facility]ORYCLIA [id number] [place] [address] [place] Urea nitrogen [Mass/Vol] 36 mg/dL High 9-24 [facility] Comment on above: Order Comment: Speci men Type: BLOOD SPECIMEN Performed By: #### 2 1-2, , 2776-05 ####[facility]ORYCLIA [id number] [address] STATES OF [facility] Anion gap [Moles/Vol] 6 mmol/L Low 9-18 [facility] Comment on above: Order Comment: Speci men Type: BLOOD SPECIMEN Performed By: #### 2 4321-2, 2776-05, ####[facility]ORYCLIA [id number] [place] [address] [place] Calcium [Mass/Vol] 6.5 mg/dL Low 8.5-10.2 [facility] Comment on above: Order Comment: Speci men Type: BLOOD SPECIMEN Performed By: #### 2 4321-2, 2776-05, ####[facility]ATORYCLIA [id number] [place] [address] [place] Chloride [Moles/Vol] 124 mmol/L High 97-105 [facility] Comment on above: Order Comment: Speci men Type: BLOOD SPECIMEN Performed By: #### 2 4321-2, 2776-05, ####[facility]ORATORYCLIA [id number] [place] [address] [place] CO2 [Moles/Vol] 24 mmol/L Normal 22-30 [facility] Comment on above: Order Comment: Speci men Type: BLOOD SPECIMEN Performed By: #### 2 4321-2, 2776-05, ####[facility]ATORYCLIA [id number] [place] [address] [place] Creatinine [Mass/Vol] 0.61 mg/dL Low 0.73-1.22 [facility] Comment on above: Order Comment: Speci men Type: BLOOD SPECIMEN Performed By: #### 2 4321-2, 2776-05, ####[facility]ATORYCLIA [id number] [address] [place] GFR/1.73 sq M.predicted [...] GFR. Performed By: #### 2 4321-2, 2776-05, ####[facility]ATORYCLIA [id number] [place] [address] [place] Glucose [Mass/Vol] 100 [...] 1). Performed By: #### 2 4321-2, 2776-05, ####[facility]ATORYCLIA [id number] [address] STATES OF [facility] Potassium [Moles/Vol] 2.7 mmol/L Low 3.7-5.1 [facility] Comment on above: Order Comment: Speci men Type: BLOOD SPECIMEN Performed By: #### 2 4321-2, 2776-05, ####[facility]ATORYCLIA [id number] [address] STATES [facility] Sodium [Moles/Vol] 154 mmol/L High 136-144 [facility] Comment on above: Order Comment: Speci men Type: BLOOD SPECIMEN Performed By: #### 2 4321-2, 2776-05, ####[facility]ORATORYCLIA [id number] [place], [place] [id number] [place] [address] [place] Urea nitrogen [Mass/Vol] 29 mg/dL High 9-24 [facility] Comment on above: Order Comment: Speci men Type: BLOOD SPECIMEN Performed By: #### 2 4321-2, 2776-05, ####[facility]ATORYCLIA [id number] [address] OF [facility] CASE MANAGEMon 06-13-2021 CASE MANAGEM Normal [facility] CBC panel Auto (Bld)on 06-13 Erythrocyte distribution width (RBC) [Ratio] 15.9 % High 11.5-15.0 [facility] Comment on above: Order Comment: Speci men Type: BLOOD SPECIMEN Performed By: #### 5 8410-2 ####[facility]ORATORYCLIA [id number] [address] Hematocrit (Bld) [Volume fraction] 34.3 % Low 39.0-51.0 [facility] Comment on above: Order Comment: Speci men Type: BLOOD SPECIMEN Performed By: #### 5 8410-2 ####[facility]ATORYCLIA [id number] [address] Hemoglobin (Bld) [Mass/Vol] 9.9 g/dL Low 13.0-17.0 [facility] Comment on above: Order Comment: Speci men Type: BLOOD SPECIMEN Performed By: #### 5 8410-2 ####[facility]ATORYCLIA [id number] [address] MCH (RBC) [Entitic mass] 27.3 pg Normal 26.0-34.0 [facility] Comment on above: Order Comment: Speci men Type: BLOOD SPECIMEN Performed By: #### 5 8410-2 ####[facility]ORATORYCLIA [id number] [address] MCHC (RBC) [Mass/Vol] 28.9 g/dL Low 30.5-36.0 [facility] Comment on above: Order Comment: Speci men Type: BLOOD SPECIMEN Performed By: #### 5 8410-2 ####[facility]ORATORYCLIA [id number] [address] MCV (RBC) [Entitic vol] 94.5 fL Normal 80.0-100.0 [facility] Comment on above: Order Comment: Speci men Type: BLOOD SPECIMEN Performed By: #### 5 8410-2 ####[facility]ORATORYCLIA [id number] [address] Nucleated RBC (Bld) [#/Vol] 10*3/uL Normal <0.01 [facility] Comment on above: Order Comment: Speci men Type: BLOOD SPECIMEN Performed By: #### 5 8410-2 ####[facility]ATORYCLIA [id number] [address] Platelet mean volume (Bld) [Entitic vol] 11.3 fL Normal 9.0-12.7 [facility] Comment on above: Order Comment: Speci men Type: BLOOD SPECIMEN Performed By: #### 5 8410-2 ####[facility]ORATORYCLIA [id number] [address] Platelets (Bld) [#/Vol] 269 10*3/uL Normal 150-400 [facility] Comment on above: Order Comment: Speci men Type: BLOOD SPECIMEN Performed By: #### 5 8410-2 ####[facility]ATORYCLIA [id number] [address] RBC (Bld) [#/Vol] 3.63 10*6/uL Low 4.20-6.00 [facility] Comment on above: Order Comment: Speci men Type: BLOOD SPECIMEN Performed By: #### 5 8410-2 ####[facility]ATORYCLIA [id number] [address] WBC (Bld) [#/Vol] 12.77 10*3/uL High 3.70-11.00 [facility] Comment on above: Order Comment: Speci men Type: BLOOD SPECIMEN Performed By: #### 5 8410-2 ####[facility]ORATORYCLIA [id number] [address] Gas and Carbon monoxide pane l (BldV)on 06-13-2021 Base excess Calc (BldV) [Moles/Vol] 5.7 mmol/L High 0-2 [facility] Comment on above: Order Comment: Speci men Type: VENOUS BLOOD SPECIMEN Performed By: #### 2 4344-4 ####[facility]ATORYCLIA [id number] [address] Body temperature 99.5 [degF] Normal [facility] Comment on above: Order Comment: Speci men Type: VENOUS BLOOD SPECIMEN Performed By: #### 2 4344-4 ####[facility]ORATORYCLIA [id number] [address] CALCIUM IONIZED, PH CORRECTED 1.24 mmol/L Normal 1.08-1.30 [facility] Comment on above: Order Comment: Speci men Type: VENOUS BLOOD SPECIMEN Performed By: #### 2 4344-4 ####[facility]ORYCLIA [id number] [address] Calcium.ionized (BldV) [Mass/Vol] 1.23 mmol/L Normal 1.08-1.30 [facility] Comment on above: Order Comment: Speci men Type: VENOUS BLOOD SPECIMEN Performed By: #### 2 4344-4 ####[facility]ATORYCLIA [id number] [address] Carboxyhemoglobin (BldV) [Mass fraction] 1.2 % Normal 0.0-2.0 [facility] Comment on above: Order Comment: Speci men Type: VENOUS BLOOD SPECIMEN Result Comment: Carb oxyhemoglobin Reference Range for Smokers: 2.0-8.0% Performed By: #### 2 4344-4 ####[facility]ATORYCLIA [id number] [address] CO2 (BldV) [Partial pressure] 48 mm[Hg] Normal 42-55 [facility] Comment on above: Order Comment: Speci men Type: VENOUS BLOOD SPECIMEN Performed By: #### 2 4344-4 ####[facility]ORYCLIA [id number] [address] CO2 [Moles/Vol] 28.2 mmol/L Normal 25-29 [facility] Comment on above: Order Comment: Speci men Type: VENOUS BLOOD SPECIMEN Performed By: #### 2 4344-4 ####[facility]ORATORYCLIA [id number] [address] CO2 adjusted to patient's actual temperature (BldV) [Partial pressure] 49 mmHg Normal 42-55 [facility] Comment on above: Order Comment: Speci men Type: VENOUS BLOOD SPECIMEN Performed By: #### 2 4344-4 ####[facility]ORYCLIA [id number] [address] Glucose [Mass/Vol] 131 mg/dL High 60-105 [facility] Comment on above: Order Comment: Speci men Type: VENOUS BLOOD SPECIMEN Performed By: #### 2 4344-4 ####[facility]ORYCLIA [id number] [address] HCO3 (Bld) [Moles/Vol] 30.6 mmol/L High 24-[address] [place] Comment on above: Order Comment: Speci men Type: VENOUS BLOOD SPECIMEN Performed By: #### 2 4344-4 ####[facility]ORYCLIA [id number] [address] Hematocrit (Bld) [Volume fraction] 32.8 % Low 39.0-51.0 [facility] Comment on above: Order Comment: Speci men Type: VENOUS BLOOD SPECIMEN Performed By: #### 2 4344-4 ####[facility]ORYCLIA [id number] [address] Hemoglobin (Bld) [Mass/Vol] 10.6 g/dL Low 13.0-17.0 [facility] Comment on above: Order Comment: Speci men Type: VENOUS BLOOD SPECIMEN Performed By: #### 2 4344-4 ####[facility]ORYCLIA [id number] [address] OF [place] 6 Liters/min Normal [facility] Comment on above: Order Comment: Speci men Type: VENOUS BLOOD SPECIMEN Performed By: #### 2 4344-4 ####[facility]ORYCLIA [id number] [place], [place] [address] [place] [address] [place] Methemoglobin (Bld) [Mass fraction] 1.0 % Normal 0.0-1.5 [facility] Comment on above: Order Comment: Speci men Type: VENOUS BLOOD SPECIMEN Performed By: #### 2 4344-4 ####[facility]ORYCLIA [id number] [address] O2 THERAPY NC = Nasal Cannula Normal [facility] Comment on above: Order Comment: Speci men Type: VENOUS BLOOD SPECIMEN Performed By: #### 2 4344-4 ####[facility]ORYCLIA [id number] [address] Oxygen (BldV) [Partial pressure] 42 mm[Hg] Normal 35-45 [facility] Comment on above: Order Comment: Speci men Type: VENOUS BLOOD SPECIMEN Performed By: #### 2 4344-4 ####[facility]ORYCLIA [id number] [address] Oxygen adjusted to patient's actual temperature (BldV) [Partial pressure] 43.8 mmHg Normal 35-45 [facility] Comment on above: Order Comment: Speci men Type: VENOUS BLOOD SPECIMEN Performed By: #### 2 4344-4 ####[facility]ORYCLIA [id number] [address] OF [place] Oxygen saturation in Blood 76.7 % Normal 60-85 [facility] Comment on above: Order Comment: Speci men Type: VENOUS BLOOD SPECIMEN Performed By: #### 2 4344-4 ####[facility]ORYCLIA [id number] [address] Oxyhemoglobin (BldV) [Mass fraction] 75 % Normal 60-85 [facility] Comment on above: Order Comment: Speci men Type: VENOUS BLOOD SPECIMEN Performed By: #### 2 4344-4 ####[facility]ORYCLIA [id number] pH (BldV) 7.42 [pH] Normal 7.32-7.42 [facility] Comment on above: Order Comment: Speci men Type: VENOUS BLOOD SPECIMEN Performed By: #### 2 4344-4 ####[facility]ORYCLIA [id number] [address] pH adjusted to patient's actual temperature (BldV) 7.41 Normal 7.32-7.42 [facility] Comment on above: Order Comment: Speci men Type: VENOUS BLOOD SPECIMEN Performed By: #### 2 4344-4 ####[facility]ORYCLIA [id number] [address] Potassium [Moles/Vol] 3.5 mmol/L Normal 3.5-5.0 [facility] Comment on above: Order Comment: Speci men Type: VENOUS BLOOD SPECIMEN Performed By: #### 2 4344-4 ####[facility]ORYCLIA [id number] [address] STATES OF [facility] Sodium [Moles/Vol] 157 mmol/L High 136-144 [facility] Comment on above: Order Comment: Speci men Type: VENOUS BLOOD SPECIMEN Performed By: #### 2 4344-4 ####[facility]ORYCLIA [id number] [address] [place] Magnesium SerPl-mCncon 06-13 Magnesium [Mass/Vol] 3.0 mg/dL High 1.7-2.3 [facility] Comment on above: Order Comment: Speci men Type: BLOOD SPECIMEN Performed By: #### 2 4321-2, 35029-1, 2776-05 ####[facility]ORYCLIA [id number] [address] OF [facility] Magnesium [Mass/Vol] 2.2 mg/dL Normal 1.7-2.3 [facility] Comment on above: Order Comment: Speci men Type: BLOOD SPECIMEN Performed By: #### 2 4321-2, 2776, ####[facility]ORYCLIA [id number] [place] [address] [place] Phosphate SerPl-mCncon 06-13 Phosphate [Mass/Vol] 2.2 mg/dL Low 2.7-4.8 [facility] Comment on above: Order Comment: Speci men Type: BLOOD SPECIMEN Performed By: #### 2 4321-2, , 2776-05 ####[facility]ORYCLIA [id number] [place] [address] [place] OF [facility] Phosphate [Mass/Vol] 1.8 mg/dL Low 2.7-4.8 [facility] Comment on above: Order Comment: Speci men Type: BLOOD SPECIMEN Performed By: #### 2 4321-2, 2776-05, ####[facility]ORYCLIA [id number] [address] STATES [place] XR CHEST 1V [...] on above: Performed By: #### 6 11-4 ####[facility]ORYCLIA [id number] [place] [address] [place] Basic metabolic 2000 panelon 06-12-2021 Anion gap [Moles/Vol] 6 mmol/L Low 9-18 [facility] Comment on above: Order Comment: Speci men Type: BLOOD SPECIMEN Performed By: #### 2 777-1, 69693-8, ####[facility]ORYCLIA [id number] [place] [address] [place] Calcium [Mass/Vol] 8.7 mg/dL Normal 8.5-10.2 [facility] Comment on above: Order Comment: Speci men Type: BLOOD SPECIMEN Performed By: #### 2 777-1, 96595-8, ####[facility]ORYCLIA [id number] [address] Chloride [Moles/Vol] 118 mmol/L High 97-105 [facility] Comment on above: Order Comment: Speci men Type: BLOOD SPECIMEN Performed By: #### 2 777-1, 65994-2, ####[facility]ORYCLIA [id number] [address] STATES [place] CO2 [Moles/Vol] 28 mmol/L Normal 22-30 [facility] Comment on above: Order Comment: Speci men Type: BLOOD SPECIMEN Performed By: #### 2 777-1, 60599-1, ####[facility]ORYCLIA [id number] [address] STATES [place] Creatinine [Mass/Vol] 0.77 mg/dL Normal 0.73-1.22 [facility] Comment on above: Order Comment: Speci men Type: BLOOD SPECIMEN Performed By: #### 2 777-1, , ####[facility]ORYCLIA [id number] [address] STATES [place] GFR/1.73 sq M.predicted [...] GFR. Performed By: #### 2 777-1, , ####[facility]ORYCLIA [id number] [place] [address] [place] Glucose [Mass/Vol] 116 [...] 1). Performed By: #### 2 777-1, , ####[facility]ORYCLIA [id number] [place] [address] [place] Potassium [Moles/Vol] 4.0 mmol/L Normal 3.7-5.1 [facility] Comment on above: Order Comment: Speci men Type: BLOOD SPECIMEN Performed By: #### 2 777-1, , ####[facility]ORYCLIA [id number] [place] [address] [place] Sodium [Moles/Vol] 152 mmol/L High 136-144 [facility] Comment on above: Order Comment: Speci men Type: BLOOD SPECIMEN Performed By: #### 2 777-1, , ####[facility]ORYCLIA [id number] [place] [address] [place] Urea nitrogen [Mass/Vol] 34 mg/dL High 9-24 [facility] Comment on above: Order Comment: Speci men Type: BLOOD SPECIMEN Performed By: #### 2 777-1, 86013-7, 84638-6 ####[facility]ORYCLIA [id number] [address] CBC panel Auto (Bld)on 06-12 Erythrocyte distribution width (RBC) [Ratio] 16.1 % High 11.5-15.0 [facility] Comment on above: Order Comment: Speci men Type: BLOOD SPECIMEN Performed By: #### 5 8410-2 ####[facility]ORYCLIA [id number] [address] Hematocrit (Bld) [Volume fraction] 32.8 % Low 39.0-51.0 [facility] Comment on above: Order Comment: Speci men Type: BLOOD SPECIMEN Performed By: #### 5 8410-2 ####[facility]ORYCLIA [id number] [address] Hemoglobin (Bld) [Mass/Vol] 9.9 g/dL Low 13.0-17.0 [facility] Comment on above: Order Comment: Speci men Type: BLOOD SPECIMEN Performed By: #### 5 8410-2 ####[facility]ORYCLIA [id number] [address] MCH (RBC) [Entitic mass] 28.4 pg Normal 26.0-34.0 [facility] Comment on above: Order Comment: Speci men Type: BLOOD SPECIMEN Performed By: #### 5 8410-2 ####[facility]ORYCLIA [id number] [address] MCHC (RBC) [Mass/Vol] 30.2 g/dL Low 30.5-36.0 [facility] Comment on above: Order Comment: Speci men Type: BLOOD SPECIMEN Performed By: #### 5 8410-2 ####[facility]ORYCLIA [id number] [address] MCV (RBC) [Entitic vol] 94.3 fL Normal 80.0-100.0 [facility] Comment on above: Order Comment: Speci men Type: BLOOD SPECIMEN Performed By: #### 5 8410-2 ####[facility]ORYCLIA [id number] [address] Nucleated RBC (Bld) [#/Vol] 10*3/uL Normal <0.01 [facility] Comment on above: Order Comment: Speci men Type: BLOOD SPECIMEN Performed By: #### 5 8410-2 ####[facility]ORYCLIA [id number] [address] Platelet mean volume (Bld) [Entitic vol] 11.2 fL Normal 9.0-12.7 [facility] Comment on above: Order Comment: Speci men Type: BLOOD SPECIMEN Performed By: #### 5 8410-2 ####[facility]ORYCLIA [id number] [address] Platelets (Bld) [#/Vol] 218 10*3/uL Normal 150-400 [facility] Comment on above: Order Comment: Speci men Type: BLOOD SPECIMEN Performed By: #### 5 8410-2 ####[facility]ORYCLIA [id number] [address] RBC (Bld) [#/Vol] 3.48 10*6/uL Low 4.20-6.00 [facility] Comment on above: Order Comment: Speci men Type: BLOOD SPECIMEN Performed By: #### 5 8410-2 ####[facility]ORYCLIA [id number] [address] WBC (Bld) [#/Vol] 13.33 10*3/uL High 3.70-11.00 [facility] Comment on above: Order Comment: Speci men Type: BLOOD SPECIMEN Performed By: #### 5 8410-2 ####[facility]ATORYCLIA [id number] [address] CONSULT PROGon 06-12-2021 CONSULT PROG Normal [facility] CT [address]N PLACE PERIT/RETROP [place] BIon 06-12-[address] PERIT/RETROP FL BI Normal [facility] HISTORY PHYSICALon HISTORY PHYSICAL Normal [facility] Magnesium SerPl-mCncon 06-12 Magnesium [Mass/Vol] 2.7 mg/dL High 1.7-2.3 [facility] Comment on above: Order Comment: Speci men Type: BLOOD SPECIMEN Performed By: #### 2 777-1, 57806-5, 86231-7 ####[facility]ORATORYCLIA [id number] [address] PT panel Coag (PPP)on 2021 INR [...] al. Chest 2012, 141:7S-[id number] RA, et al. [facility] 2017, 70: 252-289 Performed By: #### 3 4528-0 ####[facility]ORATORYCLIA [id number] [place] [id number] [facility] PT Coag (PPP) [Time] 11.9 s Normal 9.7-13.0 [facility] Comment on above: Order Comment: Speci men Type: BLOOD SPECIMEN Performed By: #### 3 4528-0 ####[facility]ATORYCLIA [id number] [address] Phosphate SerPl-mCncon 06-12 Phosphate [Mass/Vol] 2.2 mg/dL Low 2.7-4.8 [facility] Comment on above: Order Comment: Speci men Type: BLOOD SPECIMEN Performed By: #### 2 777-1, 92085-6, 72629-3 ####[facility]ORATORYCLIA [id number] 71 [address] XR ABDOMEN 1V SUPINEon 06-12 XR ABDOMEN 1V SUPINE Normal [facility] ALLIED HEALTHon 06-11-2021 ALLIED HEALTH Normal [facility] Bacteria Bld Culton 06-11-19 22 Bacteria identified Cx Nom (Bld) CULTURE, BLOOD: No growth 5 days Normal [facility] Comment on above: Performed By: #### 6 00-7 ####[facility] LABORATORYCLIA [id number] [address] Bacteria identified Cx Nom (Bld) CULTURE, BLOOD: No growth 5 days Normal [facility] Comment on above: Performed By: #### 6 00-7 ####[facility] LABORATORYCLIA [id number] [address] Bacteria Ur Culton 2 Bacteria identified Cx Nom (U) CULTURE, URINE: No growth (<1,000 CFU/ml) [facility] Comment on above: Performed By: #### 6 30-4 ####[facility]ORATORYCLIA [id number] [address] Basic metabolic 2000 panelon 06-11-2021 Anion gap [Moles/Vol] 9 mmol/L Normal 9-18 [facility] Comment on above: Order Comment: Speci men Type: BLOOD SPECIMEN Performed By: #### 1 9123-9, 2777, 13231-0 ####[facility]ORATORYCLIA [id number] [address] STATES [facility] Calcium [Mass/Vol] 8.5 mg/dL Normal 8.5-10.2 [facility] Comment on above: Order Comment: Speci men Type: BLOOD SPECIMEN Performed By: #### 1 9123-9, 2777, 42269-4 ####[facility]ORATORYCLIA [id number] [address] Chloride [Moles/Vol] 118 mmol/L High 97-105 [facility] Comment on above: Order Comment: Speci men Type: BLOOD SPECIMEN Performed By: #### 1 9123-9, 2776-05, ####[facility]ORATORYCLIA [id number] [address] CO2 [Moles/Vol] 27 mmol/L Normal 22-30 [facility] Comment on above: Order Comment: Speci men Type: BLOOD SPECIMEN Performed By: #### 1 9123-9, 2776-05, ####[facility]ORATORYCLIA [id number] [address] STATES OF [facility] Creatinine [Mass/Vol] 0.75 mg/dL Normal 0.73-1.22 [facility] Comment on above: Order Comment: Speci men Type: BLOOD SPECIMEN Performed By: #### 1 9123-9, 27711-04, ####[facility]ORATORYCLIA [id number] [address] [place] GFR/1.73 sq M.predicted [...] GFR. Performed By: #### 1 9123-9, 2777-, 18788-5 ####[facility]ORATORYCLIA [id number] [address] OF [facility] Glucose [Mass/Vol] 142 mg/dL High 74-99 [facility] [...] 1). Performed By: #### 1 9123-9, 2777, 19919-5 ####[facility]ORATORYCLIA [id number] [address] STATES OF [facility] Potassium [Moles/Vol] 3.6 mmol/L Low 3.7-5.1 [facility] Comment on above: Order Comment: Speci men Type: BLOOD SPECIMEN Performed By: #### 1 9123-9, 2777, 66430-4 ####[facility]ORATORYCLIA [id number] [address] STATES OF [facility] Sodium [Moles/Vol] 154 mmol/L High 136-144 [facility] Comment on above: Order Comment: Speci men Type: BLOOD SPECIMEN Performed By: #### 1 9123-9, 2777-1, 01410-8 ####[facility]ORATORYCLIA [id number] [address] Urea nitrogen [Mass/Vol] 31 mg/dL High 9-24 [facility] Comment on above: Order Comment: Speci men Type: BLOOD SPECIMEN Performed By: #### 1 9123-9, 2777-1, 65688-9 ####[facility]ORATORYCLIA [id number] [address] C diff Tox gens Stl Ql MEGAN+p robeon 06-11-2021 C. difficile toxin genes MEGAN+probe Ql (Stl) Negative Normal Negative for C. difficile toxin by PCR [facility] Comment on above: Order Comment: Speci men Type: STOOL SPECIMEN Performed By: #### 5 4067-4 ####[facility]ORATORYCLIA [id number] [address] STATES [facility] CBC W Auto Differential pane l (Bld)on 06-11-2021 Basophils (Bld) [#/Vol] 0.03 10*3/uL Normal <0.11 [facility] Comment on above: Order Comment: Speci men Type: BLOOD SPECIMEN Performed By: #### 5 7021-8 ####[facility] LABORATORYCLIA [id number] [address] Basophils/100 WBC (Bld) 0.2 % Normal [facility] Comment on above: Order Comment: Speci men Type: BLOOD SPECIMEN Performed By: #### 5 7021-8 ####[facility]ORATORYCLIA [id number] [address] Differential cell count method Nom (Bld) Auto Normal [facility] Comment on above: Order Comment: Speci men Type: BLOOD SPECIMEN Performed By: #### 5 7021-8 ####[facility]ORATORYCLIA [id number] [address] STATES [facility] Eosinophils (Bld) [#/Vol] 0.19 10*3/uL Normal <0.46 [facility] Comment on above: Order Comment: Speci men Type: BLOOD SPECIMEN Performed By: #### 5 7021-8 ####[facility] LABORATORYCLIA [id number] [address] Eosinophils/100 WBC (Bld) 1.5 % Normal [facility] Comment on above: Order Comment: Speci men Type: BLOOD SPECIMEN Performed By: #### 5 7021-8 ####[facility]ATORYCLIA [id number] [address] Erythrocyte distribution width (RBC) [Ratio] 16.3 % High 11.5-15.0 [facility] Comment on above: Order Comment: Speci men Type: BLOOD SPECIMEN Performed By: #### 5 7021-8 ####[facility] LABORATORYCLIA [id number] [address] Hematocrit (Bld) [Volume fraction] 32.1 % Low 39.0-51.0 [facility] Comment on above: Order Comment: Speci men Type: BLOOD SPECIMEN Performed By: #### 5 7021-8 ####[facility]ORATORYCLIA [id number] [address] Hemoglobin (Bld) [Mass/Vol] 9.3 g/dL Low 13.0-17.0 [facility] Comment on above: Order Comment: Speci men Type: BLOOD SPECIMEN Performed By: #### 5 7021-8 ####[facility] LABORATORYCLIA [id number] [address] IMMATURE GRAN % 0.6 % Normal [facility] Comment on above: Order Comment: Speci men Type: BLOOD SPECIMEN Performed By: #### 5 7021-8 ####[facility]ATORYCLIA [id number] [address] IMMATURE GRAN ABS 0.08 k/uL Normal <0.10 [facility] Comment on above: Order Comment: Speci men Type: BLOOD SPECIMEN Performed By: #### 5 7021-8 ####[facility]ORATORYCLIA [id number] [address] Lymphocytes (Bld) [#/Vol] 1.65 10*3/uL Normal 1.00-4.00 [facility] Comment on above: Order Comment: Speci men Type: BLOOD SPECIMEN Performed By: #### 5 7021-8 ####[facility]ORATORYCLIA [id number] [address] Lymphocytes/100 WBC (Bld) 12.8 % Normal [facility] Comment on above: Order Comment: Speci men Type: BLOOD SPECIMEN Performed By: #### 5 7021-8 ####[facility]ORATORYCLIA [id number] [address] MCH (RBC) [Entitic mass] 27.2 pg Normal 26.0-34.0 [facility] Comment on above: Order Comment: Speci men Type: BLOOD SPECIMEN Performed By: #### 5 7021-8 ####[facility]ORATORYCLIA [id number] [address] MCHC (RBC) [Mass/Vol] 29.0 g/dL Low 30.5-36.0 [facility] Comment on above: Order Comment: Speci men Type: BLOOD SPECIMEN Performed By: #### 5 7021-8 ####[facility]ORATORYCLIA [id number] [address] MCV (RBC) [Entitic vol] 93.9 fL Normal 80.0-100.0 [facility] Comment on above: Order Comment: Speci men Type: BLOOD SPECIMEN Performed By: #### 5 7021-8 ####[facility]ORATORYCLIA [id number] [address] Monocytes (Bld) [#/Vol] 0.68 10*3/uL Normal <0.87 [facility] Comment on above: Order Comment: Speci men Type: BLOOD SPECIMEN Performed By: #### 5 7021-8 ####[facility]ATORYCLIA [id number] [address] Monocytes/100 WBC (Bld) 5.3 % Normal [facility] Comment on above: Order Comment: Speci men Type: BLOOD SPECIMEN Performed By: #### 5 7021-8 ####[facility]ATORYCLIA [id number] [address] Neutrophils (Bld) [#/Vol] 10.22 10*3/uL High 1.45-7.50 [facility] Comment on above: Order Comment: Speci men Type: BLOOD SPECIMEN Performed By: #### 5 7021-8 ####[facility]ATORYCLIA [id number] [address] Neutrophils/100 WBC (Bld) 79.6 % Normal [facility] Comment on above: Order Comment: Speci men Type: BLOOD SPECIMEN Performed By: #### 5 7021-8 ####[facility]ATORYCLIA [id number] [address] Nucleated RBC (Bld) [#/Vol] 10*3/uL Normal <0.01 [facility] Comment on above: Order Comment: Speci men Type: BLOOD SPECIMEN Performed By: #### 5 7021-8 ####[facility]ATORYCLIA [id number] [address] Nucleated RBC/100 WBC (Bld) [Ratio] 0.0 /100 WBC Normal 0.0 [facility] Comment on above: Order Comment: Speci men Type: BLOOD SPECIMEN Performed By: #### 5 7021-8 ####[facility]ORATORYCLIA [id number] [address] Platelet mean volume (Bld) [Entitic vol] 11.1 fL Normal 9.0-12.7 [facility] Comment on above: Order Comment: Speci men Type: BLOOD SPECIMEN Performed By: #### 5 7021-8 ####[facility]ORATORYCLIA [id number] [address] Platelets (Bld) [#/Vol] 188 10*3/uL Normal 150-400 [facility] Comment on above: Order Comment: Speci men Type: BLOOD SPECIMEN Performed By: #### 5 7021-8 ####[facility]ORATORYCLIA [id number] [address] RBC (Bld) [#/Vol] 3.42 10*6/uL Low 4.20-6.00 [facility] Comment on above: Order Comment: Speci men Type: BLOOD SPECIMEN Performed By: #### 5 7021-8 ####[facility]ORATORYCLIA [id number] [address] WBC (Bld) [#/Vol] 12.85 10*3/uL High 3.70-11.00 [facility] Comment on above: Order Comment: Speci men Type: BLOOD SPECIMEN Performed By: #### 5 7021-8 ####[facility]ORATORYCLIA [id number] [address] CBC panel Auto (Bld)on 06-11 Erythrocyte distribution width (RBC) [Ratio] 16.2 % High 11.5-15.0 [facility] Comment on above: Order Comment: Speci men Type: BLOOD SPECIMEN Performed By: #### 5 8410-2 ####[facility]ORATORYCLIA [id number] [address] Hematocrit (Bld) [Volume fraction] 34.5 % Low 39.0-51.0 [facility] Comment on above: Order Comment: Speci men Type: BLOOD SPECIMEN Performed By: #### 5 8410-2 ####[facility]ORATORYCLIA [id number] [address] Hemoglobin (Bld) [Mass/Vol] 10.3 g/dL Low 13.0-17.0 [facility] Comment on above: Order Comment: Speci men Type: BLOOD SPECIMEN Performed By: #### 5 8410-2 ####[facility]ORATORYCLIA [id number] [address] MCH (RBC) [Entitic mass] 28.1 pg Normal 26.0-34.0 [facility] Comment on above: Order Comment: Speci men Type: BLOOD SPECIMEN Performed By: #### 5 8410-2 ####[facility]ORATORYCLIA [id number] [address] MCHC (RBC) [Mass/Vol] 29.9 g/dL Low 30.5-36.0 [facility] Comment on above: Order Comment: Speci men Type: BLOOD SPECIMEN Performed By: #### 5 8410-2 ####[facility]ORATORYCLIA [id number] [address] MCV (RBC) [Entitic vol] 94.3 fL Normal 80.0-100.0 [facility] Comment on above: Order Comment: Speci men Type: BLOOD SPECIMEN Performed By: #### 5 8410-2 ####[facility]ORATORYCLIA [id number] [address] Nucleated RBC (Bld) [#/Vol] 10*3/uL Normal <0.01 [facility] Comment on above: Order Comment: Speci men Type: BLOOD SPECIMEN Performed By: #### 5 8410-2 ####[facility]ORATORYCLIA [id number] [address] Platelet mean volume (Bld) [Entitic vol] 10.9 fL Normal 9.0-12.7 [facility] Comment on above: Order Comment: Speci men Type: BLOOD SPECIMEN Performed By: #### 5 8410-2 ####[facility]ORATORYCLIA [id number] [address] Platelets (Bld) [#/Vol] 210 10*3/uL Normal 150-400 [facility] Comment on above: Order Comment: Speci men Type: BLOOD SPECIMEN Performed By: #### 5 8410-2 ####[facility]ORATORYCLIA [id number] [place], [place] [id number] [place] [address] [place] OF [facility] RBC (Bld) [#/Vol] 3.66 10*6/uL Low 4.20-6.00 [facility] Comment on above: Order Comment: Speci men Type: BLOOD SPECIMEN Performed By: #### 5 8410-2 ####[facility]ORATORYCLIA [id number] [address] STATES OF [facility] WBC (Bld) [#/Vol] 13.03 10*3/uL High 3.70-11.00 [facility] Comment on above: Order Comment: Speci men Type: BLOOD SPECIMEN Performed By: #### 5 8410-2 ####[facility]ORATORYCLIA [id number] [address] CONSULT PROGon 06-11-2021 CONSULT PROG Normal [facility] CONSULT PROG Normal [facility] CONSULT PROG Normal [facility] CT ABD/PEL W IVCONon 022 CT ABD/PEL W IVCON Invalid Interpretation Code [facility] Magnesium SerPl-mCncon 06-11 Magnesium [Mass/Vol] 2.7 mg/dL High 1.7-2.3 [facility] Comment on above: Order Comment: Speci men Type: BLOOD SPECIMEN Performed By: #### 1 9123-9, 2777-1, 50365-2 ####[facility]ORATORYCLIA [id number] [address] Phosphate SerPl-mCncon 06-11 Phosphate [Mass/Vol] 2.5 mg/dL Low 2.7-4.8 [facility] Comment on above: Order Comment: Speci men Type: BLOOD SPECIMEN Performed By: #### 1 9123-9, 2777-1, 22623-1 ####[facility]ORATORYCLIA [id number] [address] OF [facility] Basic metabolic 2000 panelon 06-10-2021 Anion gap [Moles/Vol] 7 mmol/L Low 9-18 [facility] Comment on above: Order Comment: Speci men Type: BLOOD SPECIMEN Performed By: #### 2 777-1, 94581-0, , HFP ####[facility] LABORATORYCLIA [id number] [address] STATES OF [facility] Calcium [Mass/Vol] 8.5 mg/dL Normal 8.5-10.2 [facility] Comment on above: Order Comment: Speci men Type: BLOOD SPECIMEN Performed By: #### 2 777-1, 21189-9, , HFP ####[facility]ORATORYCLIA [id number] [address] STATES OF [facility] Chloride [Moles/Vol] 118 mmol/L High 97-105 [facility] Comment on above: Order Comment: Speci men Type: BLOOD SPECIMEN Performed By: #### 2 777-1, 53641-4, , HFP ####[facility]ORATORYCLIA [id number] [address] [place] CO2 [Moles/Vol] 26 mmol/L Normal 22-30 [facility] Comment on above: Order Comment: Speci men Type: BLOOD SPECIMEN Performed By: #### 2 777-1, 38025-6, , HFP ####[facility]ORATORYCLIA [id number] [address] [place] Creatinine [Mass/Vol] 0.70 mg/dL Low 0.73-1.22 [facility] Comment on above: Order Comment: Speci men Type: BLOOD SPECIMEN Performed By: #### 2 777-1, 51724-5, , HFP ####[facility]ORATORYCLIA [id number] [address] [place] GFR/1.73 sq M.predicted [...] actual GFR. Performed By: #### 2 777-1, 97989-6, , [facility] ####[facility] LABORATORYCLIA [id number] [place] [address] [place] Glucose [Mass/Vol] 135 mg/dL High 74-99 [facility] Comment on above: Order Comment: Specfrancisc[facility] children's Type: BLOOD SPECIMEN Result Comment: The [employer] [...] 2016.39(Suppl 1). Performed By: #### 2 777-1, 44521-0, , [facility] ####[facility] LABORATORYCLIA [id number] [place] [address] [place] Potassium [Moles/Vol] 3.9 mmol/L Normal 3.7-5.1 [facility] Comment on above: Order Comment: Speci [facility] Type: BLOOD SPECIMEN Performed By: #### 2 777-1, 45166-9, , [facility] ####[facility] LABORATORYCLIA [id number] [place], [place] [address] [place] [address] Sodium [Moles/Vol] 151 mmol/L High 136-144 [facility] Comment on above: Order Comment: Speci men Type: BLOOD SPECIMEN Performed By: #### 2 777-1, 97594-4, , [facility] ####[facility] LABORATORYCLIA [id number] [place] [id number] [facility] Urea nitrogen [Mass/Vol] 27 mg/dL High 9-24 [facility] Comment on above: Order Comment: Speci men Type: BLOOD SPECIMEN Performed By: #### 2 777-1, 85239-3, , [facility] ####[facility]ORATORYCLIA [id number] [address] CASE MANAGEMon 06-10-2021 CASE MANAGEM Normal [facility] CBC panel Auto (Bld)on 06-10 Erythrocyte distribution width (RBC) [Ratio] 16.2 % High 11.5-15.0 [facility] Comment on above: Order Comment: Speci men Type: BLOOD SPECIMEN Performed By: #### 5 8410-2 ####[facility]ORATORYCLIA [id number] [address] Hematocrit (Bld) [Volume fraction] 34.8 % Low 39.0-51.0 [facility] Comment on above: Order Comment: Speci men Type: BLOOD SPECIMEN Performed By: #### 5 8410-2 ####[facility]ORATORYCLIA [id number] [address] Hemoglobin (Bld) [Mass/Vol] 10.2 g/dL Low 13.0-17.0 [facility] Comment on above: Order Comment: Speci men Type: BLOOD SPECIMEN Performed By: #### 5 8410-2 ####[facility]ORATORYCLIA [id number] [address] [place] MCH (RBC) [Entitic mass] 27.1 pg Normal 26.0-34.0 [facility] Comment on above: Order Comment: Speci men Type: BLOOD SPECIMEN Performed By: #### 5 8410-2 ####[facility]ORATORYCLIA [id number] [address] MCHC (RBC) [Mass/Vol] 29.3 g/dL Low 30.5-36.0 [facility] Comment on above: Order Comment: Speci men Type: BLOOD SPECIMEN Performed By: #### 5 8410-2 ####[facility]ORATORYCLIA [id number] [address] MCV (RBC) [Entitic vol] 92.6 fL Normal 80.0-100.0 [facility] Comment on above: Order Comment: Speci men Type: BLOOD SPECIMEN Performed By: #### 5 8410-2 ####[facility]ORATORYCLIA [id number] [address] Nucleated RBC (Bld) [#/Vol] 10*3/uL Normal <0.01 [facility] Comment on above: Order Comment: Speci men Type: BLOOD SPECIMEN Performed By: #### 5 8410-2 ####[facility]ORATORYCLIA [id number] [address] Platelet mean volume (Bld) [Entitic vol] 10.4 fL Normal 9.0-12.7 [facility] Comment on above: Order Comment: Speci men Type: BLOOD SPECIMEN Performed By: #### 5 8410-2 ####[facility]ORATORYCLIA [id number] [address] Platelets (Bld) [#/Vol] 206 10*3/uL Normal 150-400 [facility] Comment on above: Order Comment: Speci men Type: BLOOD SPECIMEN Performed By: #### 5 8410-2 ####[facility]ORATORYCLIA [id number] [address] RBC (Bld) [#/Vol] 3.76 10*6/uL Low 4.20-6.00 [facility] Comment on above: Order Comment: Speci men Type: BLOOD SPECIMEN Performed By: #### 5 8410-2 ####[facility]ORATORYCLIA [id number] [address] WBC (Bld) [#/Vol] 11.36 10*3/uL High 3.70-11.00 [facility] Comment on above: Order Comment: Speci men Type: BLOOD SPECIMEN Performed By: #### 5 8410-2 ####[facility]ORATORYCLIA [id number] [address] HEPATIC FUNCTION PNLon 06-10 Albumin [Mass/Vol] 3.1 g/dL Low 3.9-4.9 [facility] Comment on above: Order Comment: Speci men Type: BLOOD SPECIMEN Performed By: #### 2 777-1, 07585-0, , HFP ####[facility]ORATORYCLIA [id number] [address] ALP [Catalytic activity/Vol] 73 U/L Normal 38-113 [facility] Comment on above: Order Comment: Speci men Type: BLOOD SPECIMEN Performed By: #### 2 777-1, 72885-6, , HFP ####[facility] LABORATORYCLIA [id number] [address] ALT With P-5'-P [Catalytic activity/Vol] 64 U/L High 10-54 [facility] Comment on above: Order Comment: Speci men Type: BLOOD SPECIMEN Performed By: #### 2 777-1, 67372-8, , HFP ####[facility]ORATORYCLIA [id number] [address] AST With P-5'-P [Catalytic activity/Vol] 44 U/L High 14-40 [facility] Comment on above: Order Comment: Speci men Type: BLOOD SPECIMEN Performed By: #### 2 777-1, 96639-7, , HFP ####[facility]ATORYCLIA [id number] [address] Bilirubin [Mass/Vol] 0.5 mg/dL Normal 0.2-1.3 [facility] Comment on above: Order Comment: Speci men Type: BLOOD SPECIMEN Performed By: #### 2 777-1, 40886-3, , [facility] ####[facility] LABORATORYCLIA [id number] [address] Bilirubin.conjugated [Mass/Vol] mg/dL Normal <0.2 [facility] Comment on above: Order Comment: Speci men Type: BLOOD SPECIMEN Performed By: #### 2 777-1, 66480-3, , [facility] ####[facility] LABORATORYCLIA [id number] [address] Protein [Mass/Vol] 5.7 g/dL Low 6.3-8.0 [facility] Comment on above: Order Comment: Speci men Type: BLOOD SPECIMEN Performed By: #### 2 777-1, 11854-8, , [facility] ####[facility] LABORATORYCLIA [id number] [address] LEVETIRACETAMon 06-10-2021 levETIRAcetam [Mass/Vol] 57.7 ug/mL [...] developed and its performance characteristics determined by [facility]'s Isrrael Perez [facility] Pathology and Laboratory [facility] [place] ([facility]). It has not been cleared or approved by the FDA. [facility] is regulated under CLIA as qualified to perform high complexity testing. This test is used for clinical purposes. It should not be regarded as investigational or for research. Performed By: #### L DARY ####[facility] LABCLIA [id number] NILESH MCKEON [id number] [address] [place] Magnesium SerPl-mCncon 06-10 Magnesium [Mass/Vol] 2.7 mg/dL High 1.7-2.3 [facility] Comment on above: Order Comment: Speci men Type: BLOOD SPECIMEN Performed By: #### 2 777-1, 14430-9, , [facility] ####[facility]ORY[facility]IA [id number] [place] [address] [place] Phosphate SerPl-ncon 06-10 Phosphate [Mass/Vol] 1.8 mg/dL Low 2.7-4.8 [facility] Comment on above: Order Comment: Speci men Type: BLOOD SPECIMEN Performed By: #### 2 777-1, 09680-0, , [facility] ####[facility]ORATORYCLIA [id number] [place] [address] [place] ALLIED HEALTHon 06-09-2021 ALLIED HEALTH Normal [facility] ALLIED HEALTH Normal [facility] ALLIED HEALTH Normal [facility] ALLIED HEALTH Normal [facility] Basic metabolic 2000 panelon 06-09-2021 Anion gap [Moles/Vol] 8 mmol/L Low 9-18 [facility] Comment on above: Order Comment: Speci men Type: BLOOD SPECIMEN Performed By: #### 2 4321-2, 2776-, ####[facility]ORATORYCLIA [id number] [place] [address] [place] Calcium [Mass/Vol] 8.3 mg/dL Low 8.5-10.2 [facility] Comment on above: Order Comment: Speci men Type: BLOOD SPECIMEN Performed By: #### 2 4321-2, 2776-, ####[facility]ORY[facility] [id number] [place] [address] [place] Chloride [Moles/Vol] 116 mmol/L High 97-105 [facility] Comment on above: Order Comment: Speci men Type: BLOOD SPECIMEN Performed By: #### 2 4321-2, 2776-05, ####[facility] LABORATORYCLIA [id number] [place] [address] [place] CO2 [Moles/Vol] 27 mmol/L Normal 22-30 [facility] Comment on above: Order Comment: Speci men Type: BLOOD SPECIMEN Performed By: #### 2 4321-2, 2776-05, ####[facility]ORATORYCLIA [id number] [address] STATES OF [facility] Creatinine [Mass/Vol] 0.70 mg/dL Low 0.73-1.22 [facility] Comment on above: Order Comment: Speci men Type: BLOOD SPECIMEN Performed By: #### 2 4321-2, 2776-05, ####[facility]ORATORYCLIA [id number] [place] [address] [place] GFR/1.73 sq M.predicted [...] GFR. Performed By: #### 2 4321-2, 2777, ####[facility]ORATORYCLIA [id number] [place] [address] [place] Glucose [Mass/Vol] 123 [...] 1). Performed By: #### 2 4321-2, 2776-05, ####[facility]ORATORYCLIA [id number] [address] [place] Potassium [Moles/Vol] 3.5 mmol/L Low 3.7-5.1 [facility] Comment on above: Order Comment: Speci men Type: BLOOD SPECIMEN Performed By: #### 2 4321-2, 2776-05, ####[facility]ORATORYCLIA [id number] [address] [place] Sodium [Moles/Vol] 151 mmol/L High 136-144 [facility] Comment on above: Order Comment: Speci men Type: BLOOD SPECIMEN Performed By: #### 2 4321-2, 2776-05, ####[facility]ORATORYCLIA [id number] [place] [address] [place] Urea nitrogen [Mass/Vol] 39 mg/dL High 9-24 [facility] Comment on above: Order Comment: Speci men Type: BLOOD SPECIMEN Performed By: #### 2 4321-2, 2776-05, ####[facility]ORATORYCLIA [id number] [address] CBC panel Auto (Bld)on 06-09 Erythrocyte distribution width (RBC) [Ratio] 16.2 % High 11.5-15.0 [facility] Comment on above: Order Comment: Speci men Type: BLOOD SPECIMEN Performed By: #### 5 8410-2 ####[facility]ORATORYCLIA [id number] [address] Hematocrit (Bld) [Volume fraction] 33.7 % Low 39.0-51.0 [facility] Comment on above: Order Comment: Speci men Type: BLOOD SPECIMEN Performed By: #### 5 8410-2 ####[facility]ORATORYCLIA [id number] [address] Hemoglobin (Bld) [Mass/Vol] 10.2 g/dL Low 13.0-17.0 [facility] Comment on above: Order Comment: Speci men Type: BLOOD SPECIMEN Performed By: #### 5 8410-2 ####[facility]ATORYCLIA [id number] [address] MCH (RBC) [Entitic mass] 27.4 pg Normal 26.0-34.0 [facility] Comment on above: Order Comment: Speci men Type: BLOOD SPECIMEN Performed By: #### 5 8410-2 ####[facility]ATORYCLIA [id number] [address] MCHC (RBC) [Mass/Vol] 30.3 g/dL Low 30.5-36.0 [facility] Comment on above: Order Comment: Speci men Type: BLOOD SPECIMEN Performed By: #### 5 8410-2 ####[facility]ORATORYCLIA [id number] [address] MCV (RBC) [Entitic vol] 90.6 fL Normal 80.0-100.0 [facility] Comment on above: Order Comment: Speci men Type: BLOOD SPECIMEN Performed By: #### 5 8410-2 ####[facility]ORATORYCLIA [id number] [address] Nucleated RBC (Bld) [#/Vol] 10*3/uL Normal <0.01 [facility] Comment on above: Order Comment: Speci men Type: BLOOD SPECIMEN Performed By: #### 5 8410-2 ####[facility]ORATORYCLIA [id number] [address] Platelet mean volume (Bld) [Entitic vol] 10.3 fL Normal 9.0-12.7 [facility] Comment on above: Order Comment: Speci men Type: BLOOD SPECIMEN Performed By: #### 5 8410-2 ####[facility]ATORYCLIA [id number] [address] Platelets (Bld) [#/Vol] 219 10*3/uL Normal 150-400 [facility] Comment on above: Order Comment: Speci men Type: BLOOD SPECIMEN Performed By: #### 5 8410-2 ####[facility]ORATORYCLIA [id number] [address] RBC (Bld) [#/Vol] 3.72 10*6/uL Low 4.20-6.00 [facility] Comment on above: Order Comment: Speci men Type: BLOOD SPECIMEN Performed By: #### 5 8410-2 ####[facility]ORATORYCLIA [id number] [address] OF [facility] WBC (Bld) [#/Vol] 13.02 10*3/uL High 3.70-11.00 [facility] Comment on above: Order Comment: Speci men Type: BLOOD SPECIMEN Performed By: #### 5 8410-2 ####[facility]ORATORYCLIA [id number] [address] CONSULT PROGon 06-09-2021 CONSULT PROG Normal [facility] CONSULT PROG Normal [facility] CT BRAIN WO IVCONon 06-09-[address] BRAIN WO IVCON Normal [facility] Magnesium SerPl-mCncon 06-09 Magnesium [Mass/Vol] 2.8 mg/dL High 1.7-2.3 [facility] Comment on above: Order Comment: Speci men Type: BLOOD SPECIMEN Performed By: #### 2 4321-2, 2777-1, 54981-5 ####[facility]ORATORYCLIA [id number] [address] NURSING PROGon 06-09-2021 NURSING PROG Normal [facility] NUTRITIONon 06-09-2021 NUTRITION Normal [facility] PT EDon 06-09-2021 PT ED Normal [facility] Phosphate SerPl-mCncon 06-09 Phosphate [Mass/Vol] 2.2 mg/dL Low 2.7-4.8 [facility] Comment on above: Order Comment: Speci men Type: BLOOD SPECIMEN Performed By: #### 2 4321-2, 2777-1, ####[facility]ORATORYCLIA [id number] [address] Vancomycin random [Mass/Vol] on 06-09-2021 Vancomycin [Mass/Vol] 18.9 ug/mL Normal 10.0-20.0 [facility] Comment on above: Order Comment: Speci men Type: BLOOD SPECIMEN Result Comment: Refe rence ranges and high/low indicator flags are provided as general guidelines only. The treating physician must determine appropriate target levels/dosing based on the specific clinical situation. Performed By: #### 4 091-5 ####[facility]ORATORYCLIA [id number] [address] XR ABD 2V SUPINE W UPR/DECUB [...] 1 Rare Staphylococcus saccharolyticus Identification performed by [facility] See scanned document for susceptibility report Normal [facility] Comment on above: Performed By: #### 6 462-6 635-3 ####[facility]ORATORYCLIA [id number] [place] [address] [place] Bacteria Wnd Culton 06-08-19 22 Bacteria identified Cx Nom (Wound) CULTURE, INTRAOPERATIVE HARDWARE: No growth 5 days GRAM STAIN: Not performed on specimen type Normal [facility] Comment on above: Performed By: #### 6 462-6 635-3 ####[facility]ORATORYCLIA [id number] [place] [address] [place] Basic metabolic 2000 panelon 06-08-2021 Anion gap [Moles/Vol] 9 mmol/L Normal 9-18 [facility] Comment on above: Order Comment: Speci men Type: BLOOD SPECIMEN Performed By: #### 2 4321-2, 2776-05, ####[facility]ORATORYCLIA [id number] [place] [address] [place] Calcium [Mass/Vol] 8.7 mg/dL Normal 8.5-10.2 [facility] Comment on above: Order Comment: Speci men Type: BLOOD SPECIMEN Performed By: #### 2 4321-2, 2776-05, ####[facility]ORATORYCLIA [id number] [place] [address] [place] Chloride [Moles/Vol] 113 mmol/L High 97-105 [facility] Comment on above: Order Comment: Speci men Type: BLOOD SPECIMEN Performed By: #### 2 4321-2, 2776-05, ####[facility]ORATORYCLIA [id number] [place], [place] [id number] [place] [address] [place] CO2 [Moles/Vol] 26 mmol/L Normal 22-30 [facility] Comment on above: Order Comment: Speci men Type: BLOOD SPECIMEN Performed By: #### 2 4321-2, 2776-05, ####[facility]ATORYCLIA [id number] [address] [place] Creatinine [Mass/Vol] 0.68 mg/dL Low 0.73-1.22 [facility] Comment on above: Order Comment: Speci men Type: BLOOD SPECIMEN Performed By: #### 2 4321-2, 2776-05, ####[facility]ATORYCLIA [id number] [address] [place] GFR/1.73 sq M.predicted [...] GFR. Performed By: #### 2 4321-2, 2776-05, ####[facility]ORATORYCLIA [id number] [place], [place] [id number] [place] [address] [place] Glucose [Mass/Vol] 146 mg/dL [...] 1). Performed By: #### 2 4321-2, 2776-05, ####[facility]ORATORYCLIA [id number] [address] STATES OF [facility] Potassium [Moles/Vol] 3.6 mmol/L Low 3.7-5.1 [facility] Comment on above: Order Comment: Speci men Type: BLOOD SPECIMEN Performed By: #### 2 4321-2, 2776-05, ####[facility]ORATORYCLIA [id number] [address] STATES OF [facility] Sodium [Moles/Vol] 148 mmol/L High 136-144 [facility] Comment on above: Order Comment: Speci men Type: BLOOD SPECIMEN Performed By: #### 2 4321-2, 2776-05, ####[facility]ATORYCLIA [id number] [address] [place] Urea nitrogen [Mass/Vol] 36 mg/dL High 9-24 [facility] Comment on above: Order Comment: Speci men Type: BLOOD SPECIMEN Performed By: #### 2 4321-2, 2776-05, ####[facility]ATORYCLIA [id number] [address] [place] CASE MANAGEMon 02-02-2022 CASE MANAGEM Normal [facility] CBC panel Auto (Bld)on 06-08 Erythrocyte distribution width (RBC) [Ratio] 16.0 % High 11.5-15.0 [facility] Comment on above: Order Comment: Speci men Type: BLOOD SPECIMEN Performed By: #### 5 8410-2 ####[facility]ORATORYCLIA [id number] [address] Hematocrit (Bld) [Volume fraction] 38.4 % Low 39.0-51.0 [facility] Comment on above: Order Comment: Speci men Type: BLOOD SPECIMEN Performed By: #### 5 8410-2 ####[facility]ATORYCLIA [id number] [address] Hemoglobin (Bld) [Mass/Vol] 12.1 g/dL Low 13.0-17.0 [facility] Comment on above: Order Comment: Speci men Type: BLOOD SPECIMEN Performed By: #### 5 8410-2 ####[facility]ORATORYCLIA [id number] [address] MCH (RBC) [Entitic mass] 28.3 pg Normal 26.0-34.0 [facility] Comment on above: Order Comment: Speci men Type: BLOOD SPECIMEN Performed By: #### 5 8410-2 ####[facility]ATORYCLIA [id number] [address] MCHC (RBC) [Mass/Vol] 31.5 g/dL Normal 30.5-36.0 [facility] Comment on above: Order Comment: Speci men Type: BLOOD SPECIMEN Performed By: #### 5 8410-2 ####[facility]ATORYCLIA [id number] [address] MCV (RBC) [Entitic vol] 89.9 fL Normal 80.0-100.0 [facility] Comment on above: Order Comment: Speci men Type: BLOOD SPECIMEN Performed By: #### 5 8410-2 ####[facility]ORATORYCLIA [id number] [address] Nucleated RBC (Bld) [#/Vol] 10*3/uL Normal <0.01 [facility] Comment on above: Order Comment: Speci men Type: BLOOD SPECIMEN Performed By: #### 5 8410-2 ####[facility]ORATORYCLIA [id number] [address] Platelet mean volume (Bld) [Entitic vol] 10.3 fL Normal 9.0-12.7 [facility] Comment on above: Order Comment: Speci men Type: BLOOD SPECIMEN Performed By: #### 5 8410-2 ####[facility]ORATORYCLIA [id number] [address] Platelets (Bld) [#/Vol] 236 10*3/uL Normal 150-400 [facility] Comment on above: Order Comment: Speci men Type: BLOOD SPECIMEN Performed By: #### 5 8410-2 ####[facility]ATORYCLIA [id number] [address] RBC (Bld) [#/Vol] 4.27 10*6/uL Normal 4.20-6.00 [facility] Comment on above: Order Comment: Speci men Type: BLOOD SPECIMEN Performed By: #### 5 8410-2 ####[facility]ATORYCLIA [id number] [address] WBC (Bld) [#/Vol] 11.06 10*3/uL High 3.70-11.00 [facility] Comment on above: Order Comment: Speci men Type: BLOOD SPECIMEN Performed By: #### 5 8410-2 ####[facility]ORATORYCLIA [id number] [address] CONSULT PROGon 06-08-2021 CONSULT PROG Normal [facility] CT BRAIN WO IVCONon 06-08-19 CT BRAIN WO IVCON Normal [facility] Magnesium SerPl-mCncon 02-02 -2022 Magnesium [Mass/Vol] 2.8 mg/dL High 1.7-2.3 [facility] Comment on above: Order Comment: Speci men Type: BLOOD SPECIMEN Performed By: #### 2 4321-2, 2777-1, 15083-7 ####[facility]ORATORYCLIA [id number] [address] Microorganism Spec Culton Microorganism identified Cx Nom (Unsp spec) CULTURE, FUNGAL: No Fungus isolated after 28 days FUNGAL SMEAR: No fungus seen Normal [facility] Comment on above: Performed By: #### 1 1475-1 ####[facility]ORATORYCLIA [id number] [address] NURSING PROGon 06-08-2021 NURSING PROG Normal [...] 70: 252-289 Performed By: #### 3 4528-0, 31129-8 ####[facility] LABORATORYCLIA [id number] [place], [place] [id number] [place] [address] OF [facility] PT Coag (PPP) [Time] 11.9 s Normal 9.7-13.0 [facility] Comment on above: Order Comment: Speci men Type: BLOOD SPECIMEN Performed By: #### 3 4528-0, 65597-0 ####[facility]ORATORYCLIA [id number] [address] OF [facility] Phosphate SerPl-mCncon 06-08 Phosphate [Mass/Vol] 2.3 mg/dL Low 2.7-4.8 [facility] Comment on above: Order Comment: Speci men Type: BLOOD SPECIMEN Performed By: #### 2 4321-2, 2777-1, 37760-3 ####[facility]ATORYCLIA [id number] [address] aPTT PPPon 06-08-2021 aPTT Coag (PPP) [Time] 24.2 s Normal 23.0-32.[address] [facility] Comment on above: Order Comment: Speci men Type: BLOOD SPECIMEN Performed By: #### 3 4528-0, 42346-2 ####[facility]ORATORYCLIA [id number] [address] OF [facility] ALLIED HEALTHon 06-07-2021 ALLIED HEALTH Normal [facility] ALLIED HEALTH Normal [facility] ALLIED HEALTH Normal [facility] Bacteria CSF Culton 06-07-19 22 Bacteria identified Cx Nom (CSF) CULTURE, CSF: No growth 14 days GRAM STAIN: No organisms seen Rare Mononuclear cells Rare Polymorphonuclear leukocytes Gram stain performed on cytospun specimen. Normal [facility] Comment on above: Performed By: #### 6 06-4 ####[facility]ORATORYCLIA [id number] [address] OF [facility] Basic metabolic 2000 panelon 06-07-2021 Anion gap [Moles/Vol] 9 mmol/L Normal 9-18 [facility] Comment on above: Order Comment: Speci men Type: BLOOD SPECIMEN Performed By: #### 1 9123-9, 27711-04, 35836-2 ####[facility]ATORYCLIA [id number] [address] Calcium [Mass/Vol] 8.8 mg/dL Normal 8.5-10.2 [facility] Comment on above: Order Comment: Speci men Type: BLOOD SPECIMEN Performed By: #### 1 9123-9, 2776-05, 44093-5 ####[facility]ORATORYCLIA [id number] [address] OF [facility] Chloride [Moles/Vol] 111 mmol/L High 97-105 [facility] Comment on above: Order Comment: Speci men Type: BLOOD SPECIMEN Performed By: #### 1 9123-9, 2776-05, 50182-5 ####[facility]ATORYCLIA [id number] [address] STATES OF [facility] CO2 [Moles/Vol] 27 mmol/L Normal 22-30 [facility] Comment on above: Order Comment: Speci men Type: BLOOD SPECIMEN Performed By: #### 1 9123-9, 2776-05, 68582-2 ####[facility]ORATORYCLIA [id number] [address] OF [facility] Creatinine [Mass/Vol] 0.66 mg/dL Low 0.73-1.22 [facility] Comment on above: Order Comment: Speci men Type: BLOOD SPECIMEN Performed By: #### 1 9123-9, 27711-04, ####[facility]ORATORYCLIA [id number] [place] [address] [place] GFR/1.73 sq M.predicted [...] GFR. Performed By: #### 1 9123-9, 2777-, 69633-1 ####[facility]ORATORYCLIA [id number] [place] [address] [place] Glucose [Mass/Vol] 123 [...] 1). Performed By: #### 1 9123-9, 2777, 75063-1 ####[facility]ORATORYCLIA [id number] [address] STATES OF [facility] Potassium [Moles/Vol] 3.6 mmol/L Low 3.7-5.1 [facility] Comment on above: Order Comment: Speci men Type: BLOOD SPECIMEN Performed By: #### 1 9123-9, 2777, 00337-7 ####[facility]ORATORYCLIA [id number] [address] [place] Sodium [Moles/Vol] 147 mmol/L High 136-144 [facility] Comment on above: Order Comment: Speci men Type: BLOOD SPECIMEN Performed By: #### 1 9123-9, 2777-1, 72501-4 ####[facility]ATORYCLIA [id number] [address] Urea nitrogen [Mass/Vol] 30 mg/dL High 9-24 [facility] Comment on above: Order Comment: Speci men Type: BLOOD SPECIMEN Performed By: #### 1 9123-9, 2777-1, 80913-9 ####[facility]ORATORYCLIA [id number] [address] CBC W Auto Differential pane l (Bld)on 06-07-2021 Basophils (Bld) [#/Vol] 10*3/uL Normal <0.11 [facility] Comment on above: Order Comment: Speci men Type: BLOOD SPECIMEN Performed By: #### 5 7021-8 ####[facility]ORATORYCLIA [id number] [address] Basophils/100 WBC (Bld) 0.2 % Normal [facility] Comment on above: Order Comment: Speci men Type: BLOOD SPECIMEN Performed By: #### 5 7021-8 ####[facility]ORATORYCLIA [id number] [address] Differential cell count method Nom (Bld) Auto Normal [facility] Comment on above: Order Comment: Speci men Type: BLOOD SPECIMEN Performed By: #### 5 7021-8 ####[facility]ORATORYCLIA [id number] [address] Eosinophils (Bld) [#/Vol] 0.06 10*3/uL Normal <0.46 [facility] Comment on above: Order Comment: Speci men Type: BLOOD SPECIMEN Performed By: #### 5 7021-8 ####[facility]ORATORYCLIA [id number] [address] Eosinophils/100 WBC (Bld) 0.6 % Normal [facility] Comment on above: Order Comment: Speci men Type: BLOOD SPECIMEN Performed By: #### 5 7021-8 ####[facility] LABORATORYCLIA [id number] [address] Erythrocyte distribution width (RBC) [Ratio] 15.8 % High 11.5-15.0 [facility] Comment on above: Order Comment: Speci men Type: BLOOD SPECIMEN Performed By: #### 5 7021-8 ####[facility] LABORATORYCLIA [id number] [address] Hematocrit (Bld) [Volume fraction] 40.4 % Normal 39.0-51.0 [facility] Comment on above: Order Comment: Speci men Type: BLOOD SPECIMEN Performed By: #### 5 7021-8 ####[facility] LABORATORYCLIA [id number] [address] Hemoglobin (Bld) [Mass/Vol] 12.4 g/dL Low 13.0-17.0 [facility] Comment on above: Order Comment: Speci men Type: BLOOD SPECIMEN Performed By: #### 5 7021-8 ####[facility]ORATORYCLIA [id number] [address] IMMATURE GRAN % 0.7 % Normal [facility] Comment on above: Order Comment: Speci men Type: BLOOD SPECIMEN Performed By: #### 5 7021-8 ####[facility]ATORYCLIA [id number] [address] IMMATURE GRAN ABS 0.07 k/uL Normal <0.10 [facility] Comment on above: Order Comment: Speci men Type: BLOOD SPECIMEN Performed By: #### 5 7021-8 ####[facility]ATORYCLIA [id number] [address] Lymphocytes (Bld) [#/Vol] 1.43 10*3/uL Normal 1.00-4.00 [facility] Comment on above: Order Comment: Speci men Type: BLOOD SPECIMEN Performed By: #### 5 7021-8 ####[facility]ORATORYCLIA [id number] [address] Lymphocytes/100 WBC (Bld) 14.1 % Normal [facility] Comment on above: Order Comment: Speci men Type: BLOOD SPECIMEN Performed By: #### 5 7021-8 ####[facility]ORATORYCLIA [id number] [address] MCH (RBC) [Entitic mass] 27.6 pg Normal 26.0-34.0 [facility] Comment on above: Order Comment: Speci men Type: BLOOD SPECIMEN Performed By: #### 5 7021-8 ####[facility]ORATORYCLIA [id number] [address] MCHC (RBC) [Mass/Vol] 30.7 g/dL Normal 30.5-36.0 [facility] Comment on above: Order Comment: Speci men Type: BLOOD SPECIMEN Performed By: #### 5 7021-8 ####[facility]ORATORYCLIA [id number] [address] MCV (RBC) [Entitic vol] 89.8 fL Normal 80.0-100.0 [facility] Comment on above: Order Comment: Speci men Type: BLOOD SPECIMEN Performed By: #### 5 7021-8 ####[facility]ORATORYCLIA [id number] [address] Monocytes (Bld) [#/Vol] 0.82 10*3/uL Normal <0.87 [facility] Comment on above: Order Comment: Speci men Type: BLOOD SPECIMEN Performed By: #### 5 7021-8 ####[facility]ORATORYCLIA [id number] [address] Monocytes/100 WBC (Bld) 8.1 % Normal [facility] Comment on above: Order Comment: Speci men Type: BLOOD SPECIMEN Performed By: #### 5 7021-8 ####[facility]ORATORYCLIA [id number] [place] [address] Neutrophils (Bld) [#/Vol] 7.74 10*3/uL High 1.45-7.50 [facility] Comment on above: Order Comment: Speci men Type: BLOOD SPECIMEN Performed By: #### 5 7021-8 ####[facility]ORATORYCLIA [id number] [address] Neutrophils/100 WBC (Bld) 76.3 % Normal [facility] Comment on above: Order Comment: Speci men Type: BLOOD SPECIMEN Performed By: #### 5 7021-8 ####[facility]ORATORYCLIA [id number] [address] Nucleated RBC (Bld) [#/Vol] 10*3/uL Normal <0.01 [facility] Comment on above: Order Comment: Speci men Type: BLOOD SPECIMEN Performed By: #### 5 7021-8 ####[facility]ATORYCLIA [id number] [address] Nucleated RBC/100 WBC (Bld) [Ratio] 0.0 /100 WBC Normal 0.0 [facility] Comment on above: Order Comment: Speci men Type: BLOOD SPECIMEN Performed By: #### 5 7021-8 ####[facility]ATORYCLIA [id number] [address] Platelet mean volume (Bld) [Entitic vol] 10.4 fL Normal 9.0-12.7 [facility] Comment on above: Order Comment: Speci men Type: BLOOD SPECIMEN Performed By: #### 5 7021-8 ####[facility]ORYCL[facility] [id number] [address] Platelets (Bld) [#/Vol] 236 10*3/uL Normal 150-400 [facility] Comment on above: Order Comment: Speci men Type: BLOOD SPECIMEN Performed By: #### 5 7021-8 ####[facility]ORATORYCLIA [id number] [place] [address] [place] RBC (Bld) [#/Vol] 4.50 10*6/uL Normal 4.20-6.00 [facility] Comment on above: Order Comment: Speci men Type: BLOOD SPECIMEN Performed By: #### 5 7021-8 ####[facility]ORYCL[facility] [id number] [address] WBC (Bld) [#/Vol] 10.14 10*3/uL Normal 3.70-11.00 [facility] Comment on above: Order Comment: Speci men Type: BLOOD SPECIMEN Performed By: #### 5 7021-8 ####[facility]ORYCLIA [id number] [address] CBC panel Auto (Bld)on 06-07 Erythrocyte distribution width (RBC) [Ratio] 15.8 % High 11.5-15.0 [facility] Comment on above: Order Comment: Speci men Type: BLOOD SPECIMEN Performed By: #### 5 8410-2 ####[facility] LABORATORYCLIA [id number] [address] Hematocrit (Bld) [Volume fraction] 40.0 % Normal 39.0-51.0 [facility] Comment on above: Order Comment: Speci men Type: BLOOD SPECIMEN Performed By: #### 5 8410-2 ####[facility] LABORATORYCLIA [id number] [address] Hemoglobin (Bld) [Mass/Vol] 12.3 g/dL Low 13.0-17.0 [facility] Comment on above: Order Comment: Speci men Type: BLOOD SPECIMEN Performed By: #### 5 8410-2 ####[facility] LABORATORYCLIA [id number] [address] MCH (RBC) [Entitic mass] 27.3 pg Normal 26.0-34.0 [facility] Comment on above: Order Comment: Speci men Type: BLOOD SPECIMEN Performed By: #### 5 8410-2 ####[facility]ATORYCLIA [id number] [address] MCHC (RBC) [Mass/Vol] 30.8 g/dL Normal 30.5-36.0 [facility] Comment on above: Order Comment: Speci men Type: BLOOD SPECIMEN Performed By: #### 5 8410-2 ####[facility] LABORATORYCLIA [id number] [address] MCV (RBC) [Entitic vol] 88.7 fL Normal 80.0-100.0 [facility] Comment on above: Order Comment: Speci men Type: BLOOD SPECIMEN Performed By: #### 5 8410-2 ####[facility] LABORATORYCLIA [id number] [address] Nucleated RBC (Bld) [#/Vol] 10*3/uL Normal <0.01 [facility] Comment on above: Order Comment: Speci men Type: BLOOD SPECIMEN Performed By: #### 5 8410-2 ####[facility] LABORATORYCLIA [id number] [address] Platelet mean volume (Bld) [Entitic vol] 10.0 fL Normal 9.0-12.7 [facility] Comment on above: Order Comment: Speci men Type: BLOOD SPECIMEN Performed By: #### 5 8410-2 ####[facility]ORATORYCLIA [id number] [address] Platelets (Bld) [#/Vol] 234 10*3/uL Normal 150-400 [facility] Comment on above: Order Comment: Speci men Type: BLOOD SPECIMEN Performed By: #### 5 8410-2 ####[facility] LABORATORYCLIA [id number] [address] RBC (Bld) [#/Vol] 4.51 10*6/uL Normal 4.20-6.00 [facility] Comment on above: Order Comment: Speci men Type: BLOOD SPECIMEN Performed By: #### 5 8410-2 ####[facility] LABORATORYCLIA [id number] [address] OF [place] WBC (Bld) [#/Vol] 11.47 10*3/uL High 3.70-11.00 [facility] Comment on above: Order Comment: Speci men Type: BLOOD SPECIMEN Performed By: #### 5 8410-2 ####[facility] LABORATORYCLIA [id number] [address] CONSULT PROGon 06-07-2021 CONSULT PROG Normal [facility] CONSULT PROG Normal [facility] CSF MANUAL DIFFon 06-07-2021 DIF TTL, CSF 92 cells counted Normal [facility] Comment on above: Order Comment: Speci men Type: CEREBROSPINAL FLUID Performed By: #### 3 4563-7, [id number], [id number] ####[facility] LABORATORYCLIA [id number] [address] EOSIN%, CSF 1 % Normal [facility] Comment on above: Order Comment: Speci men Type: CEREBROSPINAL FLUID Performed By: #### 3 4563-7, [id number], [id number] ####[facility]ORATORYCLIA [id number] [address] [place] LYMPH%, CSF 21 % Low 50-90 [facility] Comment on above: Order Comment: Speci men Type: CEREBROSPINAL FLUID Performed By: #### 3 4563-7, [id number], [id number] ####[facility]ORATORYCLIA [id number] [address] [place] MACRO%, CSF 27 % High <1 [facility] Comment on above: Order Comment: Speci men Type: CEREBROSPINAL FLUID Result Comment: Tati ected result: Previously reported as 22 % on 06/07/2021 at 1:49 PM EST. Performed By: #### 3 4563-7, [id number], [id number] ####[facility]ORATORYCLIA [id number] [address] [place] MONO%, CSF 36 % Normal 10-50 [facility] Comment on above: Order Comment: Speci men Type: CEREBROSPINAL FLUID Performed By: #### 3 4563-7, [id number], [id number] ####[facility]ORATORYCLIA [id number] [address] [place] NEUT%, CSF 11 % High 0-3 [facility] Comment on above: Order Comment: Speci men Type: CEREBROSPINAL FLUID Performed By: #### 3 4563-7, [id number], [id number] ####[facility]ORATORYCLIA [id number] [address] OTHER CL%, CSF 4 % Normal [facility] Comment on above: Order Comment: Speci men Type: CEREBROSPINAL FLUID Result Comment: Path review to follow.Corrected result: Previously reported as 10 % on 06/07/2021 at 1:49 PM EST. Performed By: #### 3 4563-7, [id number], JDV6515 ####[facility]ORATORYCLIA [id number] [address] CSF PATHOLOGIST INTERP (LAB REFLEX ORDER-NO BILL)on 06-07-2021 CSF STAFF REVIEW Negative for maligna nt cells. Rare immature myeloid or ventricular lining cells. Normal [facility] Comment on above: Order Comment: Speci men Type: CEREBROSPINAL FLUID Performed By: #### 3 4563-7, [id number], [id number] ####[facility]ORATORYCLIA [id number] [address] Pathologist name Reviewed by Eloise rebolledo MD [facility] Comment on above: Order Comment: Speci men Type: CEREBROSPINAL FLUID Performed By: #### 3 4563-7, [id number], [id number] ####[facility]ORATORYCLIA [id number] [address] BRAIN WO IVCONon 06-07-19 CT BRAIN WO IVCON Normal [facility] CT BRAIN WO IVCON Normal [facility] Cell count panel (CSF)on Clarity (CSF) Clear Normal Clear [facility] Comment on above: Order Comment: Speci men Type: CEREBROSPINAL FLUID Performed By: #### 3 4563-7, [id number], [id number] ####[facility]ORATORYCLIA [id number] [address] Clarity (Unsp spec) Not Indicated Normal Clear [facility] Comment on above: Order Comment: Speci men Type: CEREBROSPINAL FLUID Performed By: #### 3 4563-7, [id number], [id number] ####[facility]ATORYCLIA [id number] [address] Color (CSF) Colorless Normal Colorless [facility] Comment on above: Order Comment: Speci men Type: CEREBROSPINAL FLUID Performed By: #### 3 4563-7, [id number], [id number] ####[facility]ATORYCLIA [id number] [address] Color (Spun CSF) Not Indicated Normal Colorless [facility] Comment on above: Order Comment: Speci men Type: CEREBROSPINAL FLUID Performed By: #### 3 4563-7, [id number], PRX8485 ####[facility]ORATORYCLIA [id number] [address] CSF TUBE NUMBER [employer] Normal [facility] Comment on above: Order Comment: Speci men Type: CEREBROSPINAL FLUID Performed By: #### 3 4563-7, SZC0574, CTG6954 ####[facility]ATORYCLIA [id number] [address] RBC Manual cnt (CSF) [#/Vol] 42 cells/uL High 0-5 [facility] Comment on above: Order Comment: Speci men Type: CEREBROSPINAL FLUID Performed By: #### 3 4563-7, TOX1933, MQG9059 ####[facility]ATORYCLIA [id number] [address] WBC Manual cnt (CSF) [#/Vol] 1 cells/uL Normal 0-5 [facility] Comment on above: Order Comment: Speci men Type: CEREBROSPINAL FLUID Performed By: #### 3 4563-7, WVC3814, ODY1723 ####[facility] LABORATORYCLIA [id number] [address] STATES OF [place] Glucose CSF-mCncon 2 [...] Glucose HK (GLUC3) [package insert V 12.0 Libyan]. [employer], [place], [place]. September 2015. 2. Michelle Moore, Loki HGarfield (2015). Chapter 7: Glucose and Lactate. Marainela Rothman.(eds.), Cerebrospinal Fluid in Clinical Neurology. [place]: [employer]. Performed By: #### 2 880-3, 2342-4 ####[facility]ORATORYCLIA [id number] [address] STATES OF [facility] Lactate (Bld) [Moles/Vol]on 06-07-2021 Lactate [Moles/Vol] 0.9 mmol/L Normal 0.5-2.2 [facility] Comment on above: Order Comment: Speci men Type: BLOOD SPECIMEN Performed By: #### 3 2693-4 ####[facility] LABORATORYCLIA [id number] [address] STATES [place] Lipase SerPl-cCncon 06-07-19 22 Lipase [Catalytic activity/Vol] 35 U/L Normal 16-61 [facility] Comment on above: Order Comment: Speci men Type: BLOOD SPECIMEN Performed By: #### 3 040-3, PROCAL ####[facility] LABORATORYCLIA [id number] [address] [place] Magnesium SerPl-mCncon 06-07 Magnesium [Mass/Vol] 2.7 mg/dL High 1.7-2.3 [facility] Comment on above: Order Comment: Speci men Type: BLOOD SPECIMEN Performed By: #### 1 9123-9, 2777-1, 97519-9 ####[facility]ORATORYCLIA [id number] [address] PROCALCITONIN (LAB)on 2021 Procalcitonin [Mass/Vol] 0.13 ng/mL High <0.09 [facility] Comment on above: Order Comment: Speci men Type: BLOOD SPECIMEN Result Comment: For a guided interpretation of test results, please visit the [facility] in Procalcitonin Calculator, [email or web address]. Performed By: #### 3 040-3, PROCAL ####[facility] SERVICESCLIA [id number] [address] OF [facility] Phosphate SerPl-ncon 06-07 Phosphate [Mass/Vol] 1.9 mg/dL Low 2.7-4.8 [facility] Comment on above: Order Comment: Speci men Type: BLOOD SPECIMEN Performed By: #### 1 9123-9, 2777-1, 26938-3 ####[facility] SERVICESCLIA [id number] [address] Prot CSF-mCncon 06-07-2021 Protein (CSF) [Mass/Vol] 33 mg/dL Normal 15-45 [facility] Comment on above: Order Comment: Speci men Type: CEREBROSPINAL FLUID Performed By: #### 2 880-3, 2342-4 ####[facility] LABORATORYCLIA [id number] [address] SARS-CoV-2 RNA Resp Ql MEGAN+p robeon 06-07-2021 SARS-CoV-2 (COVID-19) RNA MEGAN+probe Ql (Resp) COVID 19 RESULT: SARS-CoV-2 (Agent of COVID-19) Not Detected by PCR. This test has been authorized by FDA under an Emergency Use Authorization (EUA). Normal [facility] Comment on above: Performed By: #### 9 4500-6 ####[facility] LABORATORYCLIA [id number] [place] [address] [facility] TYPE AND SCREENon 06-07-2021 ABO O Normal [facility] Comment on above: Order Comment: Speci men Type: BLOOD SPECIMEN Performed By: #### T SCR ####[facility]LOOD BANKCLIA [id number] [place] [id number] [facility] HISTORICAL AB SCR STATUS Negative Normal [facility] Comment on above: Order Comment: Speci men Type: BLOOD SPECIMEN Performed By: #### T SCR ####[facility]LO[facility] BANKCLIA [id number] [address] Rh Nom (Bld) Positive Normal [facility] Comment on above: Order Comment: Speci men Type: BLOOD SPECIMEN Performed By: #### T SCR ####[facility] BANKCLIA [id number] [address] TYPE AND SCREEN EXPIRATION 06/10/2021 23:59 Normal [facility] Comment on above: Order Comment: Speci men Type: BLOOD SPECIMEN Performed By: #### T SCR ####[facility] BLOOD BANKCLIA [id number] [address] Vancomycin random [Mass/Vol] on 06-07-2021 Vancomycin [Mass/Vol] 16.5 ug/mL Normal 10.0-20.0 [facility] Comment on above: Order Comment: Speci men Type: BLOOD SPECIMEN Result Comment: Refe rence ranges and high/low indicator flags are provided as general guidelines only. The treating physician must determine appropriate target levels/dosing based on the specific clinical situation. Performed By: #### 4 091-5 ####[facility] LABORATORYCLIA [id number] [address] XR CHEST 1V FRONTAL PORTon 0 06-07-2021 XR CHEST 1V FRONTAL PORT Normal [facility] Basic metabolic 2000 panelon 06-06-2021 Anion gap [Moles/Vol] 11 mmol/L Normal 9-18 [facility] Comment on above: Order Comment: Speci men Type: BLOOD SPECIMEN Performed By: #### 2 4321-2, , 2776-05 ####[facility] LABORATORYCLIA [id number] [address] STATES [facility] Calcium [Mass/Vol] 8.6 mg/dL Normal 8.5-10.2 [facility] Comment on above: Order Comment: Speci men Type: BLOOD SPECIMEN Performed By: #### 2 4321-2, , 2776-05 ####[facility] LABORATORYCLIA [id number] [address] [place] Chloride [Moles/Vol] 108 mmol/L High 97-105 [facility] Comment on above: Order Comment: Speci men Type: BLOOD SPECIMEN Performed By: #### 2 4321-2, , 2776-05 ####[facility] LABORATORYCLIA [id number] [address] [place] CO2 [Moles/Vol] 25 mmol/L Normal 22-30 [facility] Comment on above: Order Comment: Speci men Type: BLOOD SPECIMEN Performed By: #### 2 4321-2, , 2776-05 ####[facility] LABORATORYCLIA [id number] [address] STATES OF [facility] Creatinine [Mass/Vol] 0.76 mg/dL Normal 0.73-1.22 [facility] Comment on above: Order Comment: Speci men Type: BLOOD SPECIMEN Performed By: #### 2 4321-2, , 2776-05 ####[facility] LABORATORYCLIA [id number] [place] [address] [place] GFR/1.73 sq M.predicted [...] has been calibrated to be traceable to IDHI. An eGFR <60 mL/min/1.73m2 for >3 months is consistent with chronic kidney disease. Refer to KDOQI guidelines for clinical interpretation. In patients with unstable renal function, e.g. those with acute kidney injury, the eGFR may not accurately reflect actual GFR. Performed By: #### 2 4321-2, , 2776-05 ####[facility] LABORATORYCLIA [id number] [place] [address] [place] Glucose [Mass/Vol] 116 [...] Performed By: #### 2 4321-2, , 2776-05 ####[facility] LABORATORYCLIA [id number] [place] [address] [place] Potassium [Moles/Vol] 3.5 mmol/L Low 3.7-5.1 [facility] Comment on above: Order Comment: Speci men Type: BLOOD SPECIMEN Performed By: #### 2 4321-2, , 2776-05 ####[facility] LABORATORYCLIA [id number] [place] [address] [place] Sodium [Moles/Vol] 144 mmol/L Normal 136-144 [facility] Comment on above: Order Comment: Speci men Type: BLOOD SPECIMEN Performed By: #### 2 4321-2, 03472-2, 2776-05 ####[facility] LABORATORYCLIA [id number] [address] Urea nitrogen [Mass/Vol] 31 mg/dL High 9-24 [facility] Comment on above: Order Comment: Speci men Type: BLOOD SPECIMEN Performed By: #### 2 4321-2, , 2776-05 ####[facility] LABORATORYCLIA [id number] [address] CASE MANAGEMon 06-06-2021 CASE MANAGEM Normal [facility] CBC panel Auto (Bld)on 06-06 Erythrocyte distribution width (RBC) [Ratio] 15.8 % High 11.5-15.0 [facility] Comment on above: Order Comment: Speci men Type: BLOOD SPECIMEN Performed By: #### 5 8410-2 ####[facility] LABORATORYCLIA [id number] [address] Hematocrit (Bld) [Volume fraction] 39.5 % Normal 39.0-51.0 [facility] Comment on above: Order Comment: Speci men Type: BLOOD SPECIMEN Performed By: #### 5 8410-2 ####[facility] LABORATORYCLIA [id number] [address] Hemoglobin (Bld) [Mass/Vol] 12.2 g/dL Low 13.0-17.0 [facility] Comment on above: Order Comment: Speci men Type: BLOOD SPECIMEN Performed By: #### 5 8410-2 ####[facility] LABORATORYCLIA [id number] [address] MCH (RBC) [Entitic mass] 27.8 pg Normal 26.0-34.0 [facility] Comment on above: Order Comment: Speci men Type: BLOOD SPECIMEN Performed By: #### 5 8410-2 ####[facility] LABORATORYCLIA [id number] [address] MCHC (RBC) [Mass/Vol] 30.9 g/dL Normal 30.5-36.0 [facility] Comment on above: Order Comment: Speci men Type: BLOOD SPECIMEN Performed By: #### 5 8410-2 ####[facility] LABORATORYCLIA [id number] [address] MCV (RBC) [Entitic vol] 90.0 fL Normal 80.0-100.0 [facility] Comment on above: Order Comment: Speci men Type: BLOOD SPECIMEN Performed By: #### 5 8410-2 ####[facility] LABORATORYCLIA [id number] [address] Nucleated RBC (Bld) [#/Vol] 10*3/uL Normal <0.01 [facility] Comment on above: Order Comment: Speci men Type: BLOOD SPECIMEN Performed By: #### 5 8410-2 ####[facility] LABORATORYCLIA [id number] [address] Platelet mean volume (Bld) [Entitic vol] 10.4 fL Normal 9.0-12.7 [facility] Comment on above: Order Comment: Speci men Type: BLOOD SPECIMEN Performed By: #### 5 8410-2 ####[facility] LABORATORYCLIA [id number] [address] Platelets (Bld) [#/Vol] 236 10*3/uL Normal 150-400 [facility] Comment on above: Order Comment: Speci men Type: BLOOD SPECIMEN Performed By: #### 5 8410-2 ####[facility] LABORATORYCLIA [id number] [address] RBC (Bld) [#/Vol] 4.39 10*6/uL Normal 4.20-6.00 [facility] Comment on above: Order Comment: Speci men Type: BLOOD SPECIMEN Performed By: #### 5 8410-2 ####[facility] LABORATORYCLIA [id number] [place], [place] [address] [place] [address] WBC (Bld) [#/Vol] 9.74 10*3/uL Normal 3.70-11.00 [facility] Comment on above: Order Comment: Speci men Type: BLOOD SPECIMEN Performed By: #### 5 8410-2 ####[facility] LABORATORYCLIA [id number] [place] [address] [facility] CONSULT PROGon 06-06-2021 CONSULT PROG Normal [facility] CONSULT PROG Normal [facility] Magnesium SerPl-mCncon 06-06 Magnesium [Mass/Vol] 2.5 mg/dL High 1.7-2.3 [facility] Comment on above: Order Comment: Speci men Type: BLOOD SPECIMEN Performed By: #### 2 4321-2, 02682-2, 2777-1 ####[facility] LABORATORYCLIA [id number] [address] PT panel Coag (PPP)on 2021 INR [...] 70: 252-289 Performed By: #### 3 4528-0, 00510-4 ####[facility] LABORATORYCLIA [id number] [address] PT Coag (PPP) [Time] 11.4 s Normal 9.7-13.0 [facility] Comment on above: Order Comment: Speci men Type: BLOOD SPECIMEN Performed By: #### 3 4528-0, 49134-0 ####[facility] LABORATORYCLIA [id number] [address] Phosphate SerPl-mCncon 06-06 Phosphate [Mass/Vol] 2.3 mg/dL Low 2.7-4.8 [facility] Comment on above: Order Comment: Speci men Type: BLOOD SPECIMEN Performed By: #### 2 4321-2, 23399-6, 2777-1 ####[facility] LABORATORYCLIA [id number] [address] THROMBOGRAPH HEPARINASE PANE Kiel 06-06-2021 Clot angle after addition of heparinase TEG (Bld) [Angle] 70.2 degrees Normal 47.0-74.0 [facility] Comment on above: Order Comment: Speci men Type: BLOOD SPECIMEN Performed By: #### T EGHPP ####[facility] LABORATORYCLIA [id number] [address] Clot Lysis 30 Min post maximum clot amplitude TEG (Bld) [Length fraction] 0.0 % Normal 0.0-8.0 [facility] Comment on above: Order Comment: Speci men Type: BLOOD SPECIMEN Performed By: #### T EGHPP ####[facility] LABORATORYCLIA [id number] [address] Clotting time after addition of heparinase TEG (Bld) 5.7 minutes Normal 4.0-10.0 [facility] Comment on above: Order Comment: Speci men Type: BLOOD SPECIMEN Performed By: #### T EGHPP ####[facility] LABORATORYCLIA [id number] [address] Coagulation index TEG Qn (Bld) 1.2 Normal -4.6-3.2 [facility] Comment on above: Order Comment: Speci men Type: BLOOD SPECIMEN Result Comment: The Coagulation Index, a secondary parameter, is labeled by the hotel houseman as for "research use only" and is used per the hotel houseman's instructions. Its performance characteristics were determined by [facility]'s [facility] in a manner consistent with CLIA requirements. This test has not been cleared by the U.S. Food and Drug Administration. Performed By: #### T EGHPP ####[facility] LABORATORYCLIA [id number] [address] Maximum clot firmness after addition of heparinase TEG (Bld) [Length] 64.0 mm Normal 51.0-75.0 [facility] Comment on above: Order Comment: Speci men Type: BLOOD SPECIMEN Performed By: #### T EGHPP ####[facility] LABORATORYCLIA [id number] [address] OF [facility] Vancomycin random [Mass/Vol] on 06-06-2021 Vancomycin [Mass/Vol] 17.4 ug/mL Normal 10.0-20.0 [facility] Comment on above: Order Comment: Speci men Type: BLOOD SPECIMEN Result Comment: Refe rence ranges and high/low indicator flags are provided as general guidelines only. The treating physician must determine appropriate target levels/dosing based on the specific clinical situation. Performed By: #### 4 091-5 ####[facility] LABORATORYCLIA [id number] [address] STATES OF [facility] Vancomycin [Mass/Vol] 13.5 ug/mL Normal 10.0-20.0 [facility] Comment on above: Order Comment: Speci men Type: BLOOD SPECIMEN Result Comment: Refe rence ranges and high/low indicator flags are provided as general guidelines only. The treating physician must determine appropriate target levels/dosing based on the specific clinical situation. Performed By: #### 4 091-5 ####[facility] LABORATORYCLIA [id number] [address] [place] aPTT PPPon 06-06-2021 aPTT Coag (PPP) [Time] 27.8 s Normal 23.0-32.[address] [facility] Comment on above: Order Comment: Speci men Type: BLOOD SPECIMEN Performed By: #### 3 4528-0, 78096-3 ####[facility] LABORATORYCLIA [id number] [address] [place] Basic metabolic 2000 panelon 06-05-2021 Anion gap [Moles/Vol] 11 mmol/L Normal 9-18 [facility] Comment on above: Order Comment: Speci men Type: BLOOD SPECIMEN Performed By: #### 1 9123-9, 02684-0, 2776- ####[facility] LABORATORYCLIA [id number] [place] [address] [place] Calcium [Mass/Vol] 8.6 mg/dL Normal 8.5-10.2 [facility] Comment on above: Order Comment: Speci men Type: BLOOD SPECIMEN Performed By: #### 1 9123-9, 92913-2, 2776- ####[facility] LABORATORYCLIA [id number] [address] STATES OF [facility] Chloride [Moles/Vol] 108 mmol/L High 97-105 [facility] Comment on above: Order Comment: Speci men Type: BLOOD SPECIMEN Performed By: #### 1 9123-9, 56413-4, 2776- ####[facility]ORATORYCLIA [id number] [place] [address] [place] CO2 [Moles/Vol] 25 mmol/L Normal 22-30 [facility] Comment on above: Order Comment: Speci men Type: BLOOD SPECIMEN Performed By: #### 1 9123-9, 81122-8, 2776- ####[facility] LABORATORYCLIA [id number] [place] [address] [place] Creatinine [Mass/Vol] 0.77 mg/dL Normal 0.73-1.22 [facility] Comment on above: Order Comment: Specfranciscan children's Type: BLOOD SPECIMEN Performed By: #### 1 9123-9, 72868-5, 2777-1 ####[facility] LABORATORYCLIA [id number] [place] [address] [place] GFR/1.73 sq M.predicted [...] actual GFR. Performed By: #### 1 9123-9, 48954-3, 2777-1 ####[facility] [id number] [place] [address] [place] Glucose [Mass/Vol] 96 mg/dL Normal 74-99 [facility] Comment on above: Order Comment: [facility] Type: BLOOD SPECIMEN Result Comment: [employer] [place] [...] 2016.39(Suppl 1). Performed By: #### 1 9123-9, 06837-7, 2776-05 ####[facility]ATORYCLIA [id number] [address] STATES [facility] Potassium [Moles/Vol] 3.9 mmol/L Normal 3.7-5.1 [facility] Comment on above: Order Comment: Speci men Type: BLOOD SPECIMEN Performed By: #### 1 9123-9, 81253-2, 2776- ####[facility]ATORYCLIA [id number] [address] Sodium [Moles/Vol] 144 mmol/L Normal 136-144 [facility] Comment on above: Order Comment: Speci men Type: BLOOD SPECIMEN Performed By: #### 1 91239, 95428-3, 2776-05 ####[facility]ORATORYCLIA [id number] [address] Urea nitrogen [Mass/Vol] 26 mg/dL High 9-24 [facility] Comment on above: Order Comment: Speci men Type: BLOOD SPECIMEN Performed By: #### 1 9123-9, , 2776-05 ####[facility]ORATORYCLIA [id number] [address] CBC panel Auto (Bld)on 06-05 Erythrocyte distribution width (RBC) [Ratio] 15.9 % High 11.5-15.0 [facility] Comment on above: Order Comment: Speci men Type: BLOOD SPECIMEN Performed By: #### 5 8410-2 ####[facility]ORYCLIA [id number] [address] Hematocrit (Bld) [Volume fraction] 39.6 % Normal 39.0-51.0 [facility] Comment on above: Order Comment: Speci men Type: BLOOD SPECIMEN Performed By: #### 5 8410-2 ####[facility]ORATORYCLIA [id number] [address] Hemoglobin (Bld) [Mass/Vol] 12.3 g/dL Low 13.0-17.0 [facility] Comment on above: Order Comment: Speci men Type: BLOOD SPECIMEN Performed By: #### 5 8410-2 ####[facility]ATORYCLIA [id number] [address] MCH (RBC) [Entitic mass] 28.1 pg Normal 26.0-34.0 [facility] Comment on above: Order Comment: Speci men Type: BLOOD SPECIMEN Performed By: #### 5 8410-2 ####[facility]ATORYCLIA [id number] [address] MCHC (RBC) [Mass/Vol] 31.1 g/dL Normal 30.5-36.0 [facility] Comment on above: Order Comment: Speci men Type: BLOOD SPECIMEN Performed By: #### 5 8410-2 ####[facility]ATORYCLIA [id number] [address] MCV (RBC) [Entitic vol] 90.4 fL Normal 80.0-100.0 [facility] Comment on above: Order Comment: Speci men Type: BLOOD SPECIMEN Performed By: #### 5 8410-2 ####[facility]ORATORYCLIA [id number] [address] Nucleated RBC (Bld) [#/Vol] 10*3/uL Normal <0.01 [facility] Comment on above: Order Comment: Speci men Type: BLOOD SPECIMEN Performed By: #### 5 8410-2 ####[facility]ORATORYCLIA [id number] [address] Platelet mean volume (Bld) [Entitic vol] 10.5 fL Normal 9.0-12.7 [facility] Comment on above: Order Comment: Speci men Type: BLOOD SPECIMEN Performed By: #### 5 8410-2 ####[facility]ORATORYCLIA [id number] [address] Platelets (Bld) [#/Vol] 224 10*3/uL Normal 150-400 [facility] Comment on above: Order Comment: Speci men Type: BLOOD SPECIMEN Performed By: #### 5 8410-2 ####[facility]ORATORYCLIA [id number] [address] RBC (Bld) [#/Vol] 4.38 10*6/uL Normal 4.20-6.00 [facility] Comment on above: Order Comment: Speci men Type: BLOOD SPECIMEN Performed By: #### 5 8410-2 ####[facility]ORATORYCLIA [id number] [address] OF [facility] WBC (Bld) [#/Vol] 9.66 10*3/uL Normal 3.70-11.00 [facility] Comment on above: Order Comment: Speci men Type: BLOOD SPECIMEN Performed By: #### 5 8410-2 ####[facility]ORATORYCLIA [id number] [address] CONSULT PROGon 06-05-2021 CONSULT PROG Normal [facility] Gas and Carbon monoxide pane l (BldV)on 06-05-2021 Base excess Calc (BldV) [Moles/Vol] 1.8 mmol/L Normal 0-2 [facility] Comment on above: Order Comment: Speci men Type: VENOUS BLOOD SPECIMEN Performed By: #### 2 4344-4 ####[facility]ORATORYCLIA [id number] [address] Body temperature 100.4 [degF] Normal [facility] Comment on above: Order Comment: Speci men Type: VENOUS BLOOD SPECIMEN Performed By: #### 2 4344-4 ####[facility]ORATORYCLIA [id number] [address] CALCIUM IONIZED, PH CORRECTED 1.21 mmol/L Normal 1.08-1.30 [facility] Comment on above: Order Comment: Speci men Type: VENOUS BLOOD SPECIMEN Performed By: #### 2 4344-4 ####[facility]ATORYCLIA [id number] [address] Calcium.ionized (BldV) [Mass/Vol] 1.19 mmol/L Normal 1.08-1.30 [facility] Comment on above: Order Comment: Speci men Type: VENOUS BLOOD SPECIMEN Performed By: #### 2 4344-4 ####[facility]ORATORYCLIA [id number] [address] Carboxyhemoglobin (BldV) [Mass fraction] 1.0 % Normal 0.0-2.0 [facility] Comment on above: Order Comment: Speci men Type: VENOUS BLOOD SPECIMEN Result Comment: Carb oxyhemoglobin Reference Range for Smokers: 2.0-8.0% Performed By: #### 2 4344-4 ####[facility]ORATORYCLIA [id number] [address] CO2 (BldV) [Partial pressure] 41 mm[Hg] Low 42-55 [facility] Comment on above: Order Comment: Speci men Type: VENOUS BLOOD SPECIMEN Performed By: #### 2 4344-4 ####[facility]ATORYCLIA [id number] [address] CO2 [Moles/Vol] 23.4 mmol/L Low 25-29 [facility] Comment on above: Order Comment: Speci men Type: VENOUS BLOOD SPECIMEN Performed By: #### 2 4344-4 ####[facility]ATORYCLIA [id number] [address] CO2 adjusted to patient's actual temperature (BldV) [Partial pressure] 43 mmHg Normal 42-55 [facility] Comment on above: Order Comment: Speci men Type: VENOUS BLOOD SPECIMEN Performed By: #### 2 4344-4 ####[facility]ATORYCLIA [id number] [address] Glucose [Mass/Vol] 101 mg/dL Normal 60-105 [facility] Comment on above: Order Comment: Speci men Type: VENOUS BLOOD SPECIMEN Performed By: #### 2 4344-4 ####[facility]ORYCLIA [id number] [place], [place] [address] [place] [address] [place] HCO3 (Bld) [Moles/Vol] 26.0 mmol/L Normal 24-28 [facility] Comment on above: Order Comment: Speci men Type: VENOUS BLOOD SPECIMEN Performed By: #### 2 4344-4 ####[facility]ORATORYCLIA [id number] [address] [place] Hematocrit (Bld) [Volume fraction] 38.4 % Low 39.0-51.0 [facility] Comment on above: Order Comment: Speci men Type: VENOUS BLOOD SPECIMEN Performed By: #### 2 4344-4 ####[facility]ATORYCLIA [id number] [address] OF [facility] Hemoglobin (Bld) [Mass/Vol] 12.5 g/dL Low 13.0-17.0 [facility] Comment on above: Order Comment: Speci men Type: VENOUS BLOOD SPECIMEN Performed By: #### 2 4344-4 ####[facility]ORATORYCLIA [id number] [address] STATES OF [facility] Methemoglobin (Bld) [Mass fraction] % Normal 0.0-1.5 [facility] Comment on above: Order Comment: Speci men Type: VENOUS BLOOD SPECIMEN Performed By: #### 2 4344-4 ####[facility]ORYCLIA [id number] [address] OF [place] O2 THERAPY Ventilator Normal [facility] Comment on above: Order Comment: Speci men Type: VENOUS BLOOD SPECIMEN Performed By: #### 2 4344-4 ####[facility]ORYCLIA [id number] [address] Oxygen (BldV) [Partial pressure] 44 mm[Hg] Normal 35-45 [facility] Comment on above: Order Comment: Speci men Type: VENOUS BLOOD SPECIMEN Performed By: #### 2 4344-4 ####[facility]ORATORYCLIA [id number] [address] Oxygen adjusted to patient's actual temperature (BldV) [Partial pressure] 46.8 mmHg High 35-45 [facility] Comment on above: Order Comment: Speci men Type: VENOUS BLOOD SPECIMEN Performed By: #### 2 4344-4 ####[facility] LABORATORYCLIA [id number] [address] Oxygen saturation in Blood 76.5 % Normal 60-85 [facility] Comment on above: Order Comment: Speci men Type: VENOUS BLOOD SPECIMEN Performed By: #### 2 4344-4 ####[facility]ATORYCLIA [id number] [address] Oxyhemoglobin (BldV) [Mass fraction] 75 % Normal 60-85 [facility] Comment on above: Order Comment: Speci men Type: VENOUS BLOOD SPECIMEN Performed By: #### 2 4344-4 ####[facility]ATORYCLIA [id number] [address] pH (BldV) 7.42 [pH] Normal 7.32-7.42 [facility] Comment on above: Order Comment: Speci men Type: VENOUS BLOOD SPECIMEN Performed By: #### 2 4344-4 ####[facility]ATORYCLIA [id number] [address] pH adjusted to patient's actual temperature (BldV) 7.40 Normal 7.32-7.42 [facility] Comment on above: Order Comment: Speci men Type: VENOUS BLOOD SPECIMEN Performed By: #### 2 4344-4 ####[facility]ORYCLIA [id number] [address] [place] Potassium [Moles/Vol] 3.7 mmol/L Normal 3.5-5.0 [facility] Comment on above: Order Comment: Speci men Type: VENOUS BLOOD SPECIMEN Performed By: #### 2 4344-4 ####[facility]ORYCLIA [id number] [address] Sodium [Moles/Vol] 141 mmol/L Normal 136-144 [facility] Comment on above: Order Comment: Speci men Type: VENOUS BLOOD SPECIMEN Performed By: #### 2 4344-4 ####[facility]ORATORYCLIA [id number] [address] [place] Magnesium SerPl-mCncon 06-05 Magnesium [Mass/Vol] 2.3 mg/dL Normal 1.7-2.3 [facility] Comment on above: Order Comment: Speci men Type: BLOOD SPECIMEN Performed By: #### 1 9123-9, 07680-4, 2777-1 ####[facility]ATORYCLIA [id number] [address] Phosphate SerPl-mCncon 06-05 Phosphate [Mass/Vol] 2.9 mg/dL Normal 2.7-4.8 [facility] Comment on above: Order Comment: Speci men Type: BLOOD SPECIMEN Performed By: #### 1 9123-9, 30209-2, 2777-1 ####[facility]ORATORYCLIA [id number] [address] OF [facility] Vancomycin random [Mass/Vol] on 06-05-2021 Vancomycin [Mass/Vol] 23.2 ug/mL High 10.0-20.0 [facility] Comment on above: Order Comment: Speci men Type: BLOOD SPECIMEN Result Comment: Refe rence ranges and high/low indicator flags are provided as general guidelines only. The treating physician must determine appropriate target levels/dosing based on the specific clinical situation. Performed By: #### 4 091-5 ####[facility]ORATORYCLIA [id number] [place] [address] [place] (1,3)-C-W-VOYBZUig 2 (1,3) B-D GLUCAN <31 Normal <60 [facility] Comment on above: Order Comment: Speci men Type: BLOOD SPECIMEN Performed By: #### B DGLUC ####[facility] LABCLIA [id number] [place] [address] [place] (1,3) B-D GLUCAN, QUAL Negative Normal NEGAT [facility] Comment on above: Order Comment: Speci men Type: BLOOD SPECIMEN Result Comment: Cert ain fungi, such as the genus Cryptococcus which produces very low levels of (1,3)-oejn-X-jamddh, may not result in serum (1,3)-csbm-W-oheyid sufficiently elevated so as to be detected by the assay. Infections with fungi of the order Mucorales such as Absidia, Mucor and Rhizopus which are not known to produce (1,3)-nyvc-P-cwbmim, are also observed to yield low serum (1,3)-mgmz-V-yclvrv titers.In addition, the yeast phase of Blastomyces dermatitidis produces little (1,3)-bddp-T-gaitez and may not be detected by the assay. Performed By: #### B DGLUC ####[facility] LABCLIA [id number] [place] [address] [place] ALLIED HEALTHon 06-04-2021 ALLIED HEALTH Normal [facility] ALLIED HEALTH Normal [facility] ARTERIAL BLOOD GASESon 06-04 Base excess Calc (Bld) [Moles/Vol] 3 mmol/L High 0-2 [facility] Comment on above: Order Comment: Speci men Type: ARTERIAL BLOOD SPECIMEN Performed By: #### A LLBG ####[facility]ORATORYCLIA [id number] [address] [place] Body temperature 98.06 [degF] Normal [facility] Comment on above: Order Comment: Speci men Type: ARTERIAL BLOOD SPECIMEN Performed By: #### A LLBG ####[facility]ORATORYCLIA [id number] [address] [place] CALCIUM IONIZED, PH CORRECTED 1.19 mmol/L Normal 1.08-1.30 [facility] Comment on above: Order Comment: Speci men Type: ARTERIAL BLOOD SPECIMEN Performed By: #### A LLBG ####[facility]ATORYCLIA [id number] [address] OF [facility] Calcium.ionized (BldV) [Mass/Vol] 1.14 mmol/L Normal 1.08-1.30 [facility] Comment on above: Order Comment: Speci men Type: ARTERIAL BLOOD SPECIMEN Performed By: #### A LLBG ####[facility]ORATORYCLIA [id number] [address] OF [facility] Carboxyhemoglobin (BldA) [Mass fraction] 1.2 % Normal 0.0-2.0 [facility] Comment on above: Order Comment: Speci men Type: ARTERIAL BLOOD SPECIMEN Result Comment: Carb oxyhemoglobin Reference Range for Smokers: 2.0-8.0% Performed By: #### A LLBG ####[facility]ATORYCLIA [id number] [address] CO2 (Bld) [Partial pressure] 35 mm Hg Low 36-46 [facility] Comment on above: Order Comment: Speci men Type: ARTERIAL BLOOD SPECIMEN Performed By: #### A LLBG ####[facility]ORATORYCLIA [id number] [address] CO2 [Moles/Vol] 23.2 mmol/L Normal 22-28 [facility] Comment on above: Order Comment: Speci men Type: ARTERIAL BLOOD SPECIMEN Performed By: #### A LLBG ####[facility]ORATORYCLIA [id number] [address] CO2 adjusted to patient's actual temperature (Bld) [Partial pressure] 34 mmHg Low 36-46 [facility] Comment on above: Order Comment: Speci men Type: ARTERIAL BLOOD SPECIMEN Performed By: #### A LLBG ####[facility]ATORYCLIA [id number] [address] Glucose [Mass/Vol] 115 mg/dL High 60-105 [facility] Comment on above: Order Comment: Speci men Type: ARTERIAL BLOOD SPECIMEN Performed By: #### A LLBG ####[facility]ORATORYCLIA [id number] [address] [place] HCO3 (Bld) [Moles/Vol] 26 mmol/L Normal 22-[address] [facility] Comment on above: Order Comment: Speci men Type: ARTERIAL BLOOD SPECIMEN Performed By: #### A LLBG ####[facility]ATORYCLIA [id number] [address] [place] Hematocrit (Bld) [Volume fraction] 35.3 % Low 39.0-51.0 [facility] Comment on above: Order Comment: Speci men Type: ARTERIAL BLOOD SPECIMEN Performed By: #### A LLBG ####[facility]ORATORYCLIA [id number] [address] [place] Hemoglobin (Bld) [Mass/Vol] 11.5 g/dL Low 13.0-17.0 [facility] Comment on above: Order Comment: Speci men Type: ARTERIAL BLOOD SPECIMEN Performed By: #### A LLBG ####[facility]ORATORYCLIA [id number] [address] Methemoglobin (Bld) [Mass fraction] % Normal 0.0-1.5 [facility] Comment on above: Order Comment: Speci men Type: ARTERIAL BLOOD SPECIMEN Performed By: #### A LLBG ####[facility]ATORYCLIA [id number] [address] OF [place] O2 THERAPY Ventilator Normal [facility] Comment on above: Order Comment: Speci men Type: ARTERIAL BLOOD SPECIMEN Performed By: #### A LLBG ####[facility]ATORYCLIA [id number] [address] [place] Oxygen (Bld) [Partial pressure] 66 mm Hg Low 85-95 [facility] Comment on above: Order Comment: Speci men Type: ARTERIAL BLOOD SPECIMEN Performed By: #### A LLBG ####[facility]ATORYCLIA [id number] [address] OF [place] Oxygen adjusted to patient's actual temperature (Bld) [Partial pressure] 64.3 mmHg Low 85-95 [facility] Comment on above: Order Comment: Speci men Type: ARTERIAL BLOOD SPECIMEN Performed By: #### A LLBG ####[facility]ATORYCLIA [id number] [address] OXYGEN SATURATION, ARTERIAL 95 % Normal 95-98 [facility] Comment on above: Order Comment: Speci men Type: ARTERIAL BLOOD SPECIMEN Performed By: #### A LLBG ####[facility]ATORYCLIA [id number] [address] Oxyhemoglobin (BldA) [Mass fraction] 93 % Low 95-98 [facility] Comment on above: Order Comment: Speci men Type: ARTERIAL BLOOD SPECIMEN Performed By: #### A LLBG ####[facility]ATORYCLIA [id number] [address] pH (Bld) 7.49 [pH] High 7.35-7.45 [facility] Comment on above: Order Comment: Speci men Type: ARTERIAL BLOOD SPECIMEN Performed By: #### A LLBG ####[facility]ATORYCLIA [id number] [address] pH adjusted to patient's actual temperature (Bld) 7.49 High 7.35-7.45 [facility] Comment on above: Order Comment: Speci men Type: ARTERIAL BLOOD SPECIMEN Performed By: #### A LLBG ####[facility]ORYCLIA [id number] [address] Potassium [Moles/Vol] 2.8 mmol/L Low 3.5-5.0 [facility] Comment on above: Order Comment: Speci men Type: ARTERIAL BLOOD SPECIMEN Performed By: #### A LLBG ####[facility]ORYCLIA [id number] [address] Bas Metab 2000 Pnl SerPlon 0 06-04-2021 Sodium [Moles/Vol] 143 mmol/L Normal 136-144 [facility] Comment on above: Order Comment: Speci men Type: BLOOD SPECIMEN Performed By: #### 2 777-1, , ####[facility]ORYCLIA [id number] [address] Order Comment: Speci men Type: ARTERIAL BLOOD SPECIMEN Performed By: #### A LLBG ####[facility]ATORYCLIA [id number] [address] Basic metabolic 2000 panelon 06-04-2021 Anion gap [Moles/Vol] 11 mmol/L Normal 9-18 [facility] Comment on above: Order Comment: Speci men Type: BLOOD SPECIMEN Performed By: #### 2 777-1, , ####[facility]ORYCLIA [id number] [address] Calcium [Mass/Vol] 8.5 mg/dL Normal 8.5-10.2 [facility] Comment on above: Order Comment: Speci men Type: BLOOD SPECIMEN Performed By: #### 2 777-1, , ####[facility]ORYCLIA [id number] [address] Chloride [Moles/Vol] 107 mmol/L High 97-105 [facility] Comment on above: Order Comment: Speci men Type: BLOOD SPECIMEN Performed By: #### 2 777-1, , ####[facility]ORYCLIA [id number] [address] STATES OF [facility] CO2 [Moles/Vol] 25 mmol/L Normal 22-30 [facility] Comment on above: Order Comment: Speci men Type: BLOOD SPECIMEN Performed By: #### 2 777-1, , ####[facility]ATORYCLIA [id number] [address] [place] Creatinine [Mass/Vol] 0.77 mg/dL Normal 0.73-1.22 [facility] Comment on above: Order Comment: Speci men Type: BLOOD SPECIMEN Performed By: #### 2 777-1, 25508-6, ####[facility]ORATORYCLIA [id number] [place] [address] [place] GFR/1.73 sq M.predicted [...] 777-1, , ####[facility] SERVICESCLIA [id number] [place] [id number] [place] Glucose [Mass/Vol] 107 mg/dL High 74-99 [facility] Comment on above: Order Comment: Specfranciscan children's Type: BLOOD SPECIMEN Result Comment: The Finnish [...] 1). Performed By: #### 2 777-1, , ####[facility] LABORATORYCLIA [id number] [address] Potassium [Moles/Vol] 3.1 mmol/L Low 3.7-5.1 [facility] Comment on above: Order Comment: Speci men Type: BLOOD SPECIMEN Performed By: #### 2 777-1, , ####[facility] LABORATORYCLIA [id number] [address] Urea nitrogen [Mass/Vol] 19 mg/dL Normal 9-24 [facility] Comment on above: Order Comment: Speci men Type: BLOOD SPECIMEN Performed By: #### 2 777-1, , ####[facility]ORATORYCLIA [id number] [address] CBC panel Auto (Bld)on 06-04 Erythrocyte distribution width (RBC) [Ratio] 15.8 % High 11.5-15.0 [facility] Comment on above: Order Comment: Speci men Type: BLOOD SPECIMEN Performed By: #### 5 8410-2 ####[facility]ORATORYCLIA [id number] [address] Hematocrit (Bld) [Volume fraction] 36.9 % Low 39.0-51.0 [facility] Comment on above: Order Comment: Speci men Type: BLOOD SPECIMEN Performed By: #### 5 8410-2 ####[facility]ORATORYCLIA [id number] [address] Hemoglobin (Bld) [Mass/Vol] 11.2 g/dL Low 13.0-17.0 [facility] Comment on above: Order Comment: Speci men Type: BLOOD SPECIMEN Performed By: #### 5 8410-2 ####[facility]ORATORYCLIA [id number] [address] OF [facility] MCH (RBC) [Entitic mass] 27.3 pg Normal 26.0-34.0 [facility] Comment on above: Order Comment: Speci men Type: BLOOD SPECIMEN Performed By: #### 5 8410-2 ####[facility] LABORATORYCLIA [id number] [address] MCHC (RBC) [Mass/Vol] 30.4 g/dL Low 30.5-36.0 [facility] Comment on above: Order Comment: Speci men Type: BLOOD SPECIMEN Performed By: #### 5 8410-2 ####[facility] LABORATORYCLIA [id number] [address] MCV (RBC) [Entitic vol] 89.8 fL Normal 80.0-100.0 [facility] Comment on above: Order Comment: Speci men Type: BLOOD SPECIMEN Performed By: #### 5 8410-2 ####[facility]ORATORYCLIA [id number] [address] Nucleated RBC (Bld) [#/Vol] 10*3/uL Normal <0.01 [facility] Comment on above: Order Comment: Speci men Type: BLOOD SPECIMEN Performed By: #### 5 8410-2 ####[facility]ORATORYCLIA [id number] [address] Platelet mean volume (Bld) [Entitic vol] 10.7 fL Normal 9.0-12.7 [facility] Comment on above: Order Comment: Speci men Type: BLOOD SPECIMEN Performed By: #### 5 8410-2 ####[facility]ORATORYCLIA [id number] [address] Platelets (Bld) [#/Vol] 174 10*3/uL Normal 150-400 [facility] Comment on above: Order Comment: Speci men Type: BLOOD SPECIMEN Performed By: #### 5 8410-2 ####[facility]ORATORYCLIA [id number] [address] RBC (Bld) [#/Vol] 4.11 10*6/uL Low 4.20-6.00 [facility] Comment on above: Order Comment: Speci men Type: BLOOD SPECIMEN Performed By: #### 5 8410-2 ####[facility] LABORATORYCLIA [id number] [address] OF [facility] WBC (Bld) [#/Vol] 8.29 10*3/uL Normal 3.70-11.00 [facility] Comment on above: Order Comment: Speci men Type: BLOOD SPECIMEN Performed By: #### 5 8410-2 ####[facility]ORATORYCLIA [id number] [address] CONSULT PROGon 06-04-2021 CONSULT PROG Normal [facility] CT BRAIN WO IVCONon 06-04-19 CT BRAIN WO IVCON Normal [facility] CT CHEST W IVCON PEon 2021 CT CHEST W IVCON PE Normal [facility] Magnesium SerPl-mCncon 06-04 Magnesium [Mass/Vol] 2.2 mg/dL Normal 1.7-2.3 [facility] Comment on above: Order Comment: Speci men Type: BLOOD SPECIMEN Performed By: #### 2 777-1, 24542-9, 69475-1 ####[facility] LABORATORYCLIA [id number] [address] NT-proBNP SerPl-mCncon 06-04 Natriuretic peptide.B prohormone N-Terminal [Mass/Vol] 229 pg/mL High <125 [facility] Comment on above: Order Comment: Speci men Type: BLOOD SPECIMEN Performed By: #### 3 3762-6, 4091-5 ####[facility] LABORATORYCLIA [id number] [address] Phosphate SerPl-mCncon 06-04 Phosphate [Mass/Vol] 2.0 mg/dL Low 2.7-4.8 [facility] Comment on above: Order Comment: Speci men Type: BLOOD SPECIMEN Performed By: #### 2 777-1, 27748-3, 51026-6 ####[facility] LABORATORYCLIA [id number] [address] Vancomycin random [Mass/Vol] on 06-04-2021 Vancomycin [Mass/Vol] 35.2 ug/mL High 10.0-20.0 [facility] Comment on above: Order Comment: Speci men Type: BLOOD SPECIMEN Result Comment: Refe rence ranges and high/low indicator flags are provided as general guidelines only. The treating physician must determine appropriate target levels/dosing based on the specific clinical situation. Performed By: #### 3 3762-6, 4091-5 ####[facility]ATORYCLIA [id number] [address] XR ABDOMEN 1V SUPINEon 06-04 XR ABDOMEN 1V SUPINE Normal [facility] ALLIED HEALTHon 06-03-2021 ALLIED HEALTH Normal [facility] ARTERIAL BLOOD GASESon 06-03 Base excess Calc (Bld) [Moles/Vol] 5 mmol/L High 0-2 [facility] Comment on above: Order Comment: Speci men Type: ARTERIAL BLOOD SPECIMEN Performed By: #### A LLBG ####[facility]ORATORYCLIA [id number] [address] Body temperature 99.5 [degF] Normal [facility] Comment on above: Order Comment: Speci men Type: ARTERIAL BLOOD SPECIMEN Performed By: #### A LLBG ####[facility]ATORYCLIA [id number] [address] CALCIUM IONIZED, PH CORRECTED 1.18 mmol/L Normal 1.08-1.30 [facility] Comment on above: Order Comment: Speci men Type: ARTERIAL BLOOD SPECIMEN Performed By: #### A LLBG ####[facility]ATORYCLIA [id number] [address] Calcium.ionized (BldV) [Mass/Vol] 1.16 mmol/L Normal 1.08-1.30 [facility] Comment on above: Order Comment: Speci men Type: ARTERIAL BLOOD SPECIMEN Performed By: #### A LLBG ####[facility]ORYCLIA [id number] [address] Carboxyhemoglobin (BldA) [Mass fraction] 1.2 % Normal 0.0-2.0 [facility] Comment on above: Order Comment: Speci men Type: ARTERIAL BLOOD SPECIMEN Result Comment: Carb oxyhemoglobin Reference Range for Smokers: 2.0-8.0% Performed By: #### A LLBG ####[facility]ATORYCLIA [id number] [address] CO2 (Bld) [Partial pressure] 45 mm Hg Normal 36-46 [facility] Comment on above: Order Comment: Speci men Type: ARTERIAL BLOOD SPECIMEN Performed By: #### A LLBG ####[facility]ATORYCLIA [id number] [address] CO2 [Moles/Vol] 26.9 mmol/L Normal 22-28 [facility] Comment on above: Order Comment: Speci men Type: ARTERIAL BLOOD SPECIMEN Performed By: #### A LLBG ####[facility]ATORYCLIA [id number] [address] CO2 adjusted to patient's actual temperature (Bld) [Partial pressure] 47 mmHg High 36-46 [facility] Comment on above: Order Comment: Speci men Type: ARTERIAL BLOOD SPECIMEN Performed By: #### A LLBG ####[facility]ATORYCLIA [id number] [address] OF [place] Glucose [Mass/Vol] 141 mg/dL High 60-105 [facility] Comment on above: Order Comment: Speci men Type: ARTERIAL BLOOD SPECIMEN Performed By: #### A LLBG ####[facility]ORYCLIA [id number] [address] HCO3 (Bld) [Moles/Vol] 30 mmol/L High 22-[address] [facility] Comment on above: Order Comment: Speci men Type: ARTERIAL BLOOD SPECIMEN Performed By: #### A LLBG ####[facility]ORYCLIA [id number] [address] Hematocrit (Bld) [Volume fraction] 35.8 % Low 39.0-51.0 [facility] Comment on above: Order Comment: Speci men Type: ARTERIAL BLOOD SPECIMEN Performed By: #### A LLBG ####[facility]ATORYCLIA [id number] [address] Hemoglobin (Bld) [Mass/Vol] 11.6 g/dL Low 13.0-17.0 [facility] Comment on above: Order Comment: Speci men Type: ARTERIAL BLOOD SPECIMEN Performed By: #### A LLBG ####[facility]ATORYCLIA [id number] [address] Methemoglobin (Bld) [Mass fraction] % Normal 0.0-1.5 [facility] Comment on above: Order Comment: Speci men Type: ARTERIAL BLOOD SPECIMEN Performed By: #### A LLBG ####[facility]ATORYCLIA [id number] [address] O2 THERAPY Ventilator Normal [facility] Comment on above: Order Comment: Speci men Type: ARTERIAL BLOOD SPECIMEN Performed By: #### A LLBG ####[facility]ORYCLIA [id number] [address] Oxygen (Bld) [Partial pressure] 69 mm Hg Low 85-95 [facility] Comment on above: Order Comment: Speci men Type: ARTERIAL BLOOD SPECIMEN Performed By: #### A LLBG ####[facility]ORYCLIA [id number] [address] Oxygen adjusted to patient's actual temperature (Bld) [Partial pressure] 70.8 mmHg Low 85-95 [facility] Comment on above: Order Comment: Speci men Type: ARTERIAL BLOOD SPECIMEN Performed By: #### A LLBG ####[facility]ATORYCLIA [id number] [address] OXYGEN SATURATION, ARTERIAL 94 % Low 95-98 [facility] Comment on above: Order Comment: Speci men Type: ARTERIAL BLOOD SPECIMEN Performed By: #### A LLBG ####[facility]ORYCLIA [id number] [address] Oxyhemoglobin (BldA) [Mass fraction] 93 % Low 95-98 [facility] Comment on above: Order Comment: Speci men Type: ARTERIAL BLOOD SPECIMEN Performed By: #### A LLBG ####[facility]ATORYCLIA [id number] [address] [place] pH (Bld) 7.43 [pH] Normal 7.35-7.45 [facility] Comment on above: Order Comment: Speci men Type: ARTERIAL BLOOD SPECIMEN Performed By: #### A LLBG ####[facility]ORYCLIA [id number] [address] pH adjusted to patient's actual temperature (Bld) 7.43 Normal 7.35-7.45 [facility] Comment on above: Order Comment: Speci men Type: ARTERIAL BLOOD SPECIMEN Performed By: #### A LLBG ####[facility]ORYCLIA [id number] [address] STATES OF [facility] Potassium [Moles/Vol] 3.1 mmol/L Low 3.5-5.0 [facility] Comment on above: Order Comment: Speci men Type: ARTERIAL BLOOD SPECIMEN Performed By: #### A LLBG ####[facility]ORYCLIA [id number] [address] [place] Sodium [Moles/Vol] 145 mmol/L High 136-144 [facility] Comment on above: Order Comment: Speci men Type: ARTERIAL BLOOD SPECIMEN Performed By: #### A LLBG ####[facility]ATORYCLIA [id number] [address] [place] ASPERGILLUS GALACTOMANNAN SE RUMon 06-03-2021 Galactomannan Ag IA Ql Negative Normal NEGAT [facility] Comment on above: Order Comment: Speci [...] is suspected. Performed By: #### A SGALS ####[facility] LABCLIA [id number] [place] [facility] [address] OF [facility] Galactomannan Ag IA Qn <0.[address] [facility] Comment on above: Order Comment: Speci men Type: BLOOD SPECIMEN Result Comment: Inde x Values are Interpreted as Follows:Negative specimens <0.50Positive specimens >=0.50 Performed By: #### A SGALS ####[facility] LABCLIA [id number] [place] [facility] [place] [id number] [facility] Basic metabolic 2000 panelon 06-03-2021 Anion gap [Moles/Vol] 8 mmol/L Low 9-18 [facility] Comment on above: Order Comment: Speci men Type: BLOOD SPECIMEN Performed By: #### 1 9123-9, 2777-1, 25456-7 ####[facility]ATORYCLIA [id number] [address] STATES OF [facility] Calcium [Mass/Vol] 8.0 mg/dL Low 8.5-10.2 [facility] Comment on above: Order Comment: Speci men Type: BLOOD SPECIMEN Performed By: #### 1 9123-9, 2777-1, 49171-4 ####[facility]ORATORYCLIA [id number] [address] STATES OF [facility] Chloride [Moles/Vol] 110 mmol/L High 97-105 [facility] Comment on above: Order Comment: Speci men Type: BLOOD SPECIMEN Performed By: #### 1 9123-9, 2777-1, 70266-0 ####[facility]ATORYCLIA [id number] [address] CO2 [Moles/Vol] 28 mmol/L Normal 22-30 [facility] Comment on above: Order Comment: Speci men Type: BLOOD SPECIMEN Performed By: #### 1 9123-9, 2777-1, 73496-3 ####[facility]ATORYCLIA [id number] [address] STATES OF [facility] Creatinine [Mass/Vol] 0.75 mg/dL Normal 0.73-1.22 [facility] Comment on above: Order Comment: Speci men Type: BLOOD SPECIMEN Performed By: #### 1 9123-9, 2777-, 33575-7 ####[facility]ATORYCLIA [id number] [address] STATES [facility] GFR/1.73 sq M.predicted MDRD (S/P/Bld) [Vol [...] GFR. Performed By: #### 1 9123-9, 2777-1, 35102-8 ####[facility]ATORYCLIA [id number] [address] [place] Glucose [Mass/Vol] 141 [...] 1). Performed By: #### 1 9123-9, 2777-, 92154-8 ####[facility]ATORYCLIA [id number] [address] STATES OF [facility] Potassium [Moles/Vol] 3.3 mmol/L Low 3.7-5.1 [facility] Comment on above: Order Comment: Speci men Type: BLOOD SPECIMEN Performed By: #### 1 9123-9, 2777, 46382-5 ####[facility]ORATORYCLIA [id number] [address] Sodium [Moles/Vol] 146 mmol/L High 136-144 [facility] Comment on above: Order Comment: Speci men Type: BLOOD SPECIMEN Performed By: #### 1 9123-9, 2777, 20230-2 ####[facility]ATORYCLIA [id number] [address] Urea nitrogen [Mass/Vol] 10 mg/dL Normal 9-24 [facility] Comment on above: Order Comment: Speci men Type: BLOOD SPECIMEN Performed By: #### 1 9123-9, 2777-, 13710-1 ####[facility]ATORYCLIA [id number] [address] OF [facility] CASE MANAGEMon 06-03-2021 CASE MANAGEM Normal [facility] CBC panel Auto (Bld)on 06-03 Erythrocyte distribution width (RBC) [Ratio] 15.6 % High 11.5-15.0 [facility] Comment on above: Order Comment: Speci men Type: BLOOD SPECIMEN Performed By: #### 5 8410-2 ####[facility]ATORYCLIA [id number] [address] Hematocrit (Bld) [Volume fraction] 36.9 % Low 39.0-51.0 [facility] Comment on above: Order Comment: Speci men Type: BLOOD SPECIMEN Performed By: #### 5 8410-2 ####[facility]ATORYCLIA [id number] [address] Hemoglobin (Bld) [Mass/Vol] 11.1 g/dL Low 13.0-17.0 [facility] Comment on above: Order Comment: Speci men Type: BLOOD SPECIMEN Performed By: #### 5 8410-2 ####[facility]ATORYCLIA [id number] [address] MCH (RBC) [Entitic mass] 27.0 pg Normal 26.0-34.0 [facility] Comment on above: Order Comment: Speci men Type: BLOOD SPECIMEN Performed By: #### 5 8410-2 ####[facility]ATORYCLIA [id number] [address] MCHC (RBC) [Mass/Vol] 30.1 g/dL Low 30.5-36.0 [facility] Comment on above: Order Comment: Speci men Type: BLOOD SPECIMEN Performed By: #### 5 8410-2 ####[facility]ATORYCLIA [id number] [address] MCV (RBC) [Entitic vol] 89.8 fL Normal 80.0-100.0 [facility] Comment on above: Order Comment: Speci men Type: BLOOD SPECIMEN Performed By: #### 5 8410-2 ####[facility]ATORYCLIA [id number] [address] Nucleated RBC (Bld) [#/Vol] 10*3/uL Normal <0.01 [facility] Comment on above: Order Comment: Speci men Type: BLOOD SPECIMEN Performed By: #### 5 8410-2 ####[facility]ATORYCLIA [id number] [address] Platelet mean volume (Bld) [Entitic vol] 10.5 fL Normal 9.0-12.7 [facility] Comment on above: Order Comment: Speci men Type: BLOOD SPECIMEN Performed By: #### 5 8410-2 ####[facility]ATORYCLIA [id number] [address] [place] Platelets (Bld) [#/Vol] 196 10*3/uL Normal 150-400 [facility] Comment on above: Order Comment: Speci men Type: BLOOD SPECIMEN Performed By: #### 5 8410-2 ####[facility]ATORYCLIA [id number] [address] RBC (Bld) [#/Vol] 4.11 10*6/uL Low 4.20-6.00 [facility] Comment on above: Order Comment: Speci men Type: BLOOD SPECIMEN Performed By: #### 5 8410-2 ####[facility]ATORYCLIA [id number] [address] WBC (Bld) [#/Vol] 8.18 10*3/uL Normal 3.70-11.00 [facility] Comment on above: Order Comment: Speci men Type: BLOOD SPECIMEN Performed By: #### 5 8410-2 ####[facility]ORATORYCLIA [id number] [address] OF [facility] CONSULTon 06-03-2021 CONSULT Normal [facility] CONSULT PROGon 06-03-2021 CONSULT PROG Normal [facility] Gas and Carbon monoxide pane l (BldV)on 06-03-2021 Base excess Calc (BldV) [Moles/Vol] 1.4 mmol/L Normal 0-2 [facility] Comment on above: Order Comment: Speci men Type: VENOUS BLOOD SPECIMEN Performed By: #### 2 4344-4 ####[facility]ORATORYCLIA [id number] [place] [address] Body temperature 98.42 [degF] Normal [facility] Comment on above: Order Comment: Speci men Type: VENOUS BLOOD SPECIMEN Performed By: #### 2 4344-4 ####[facility]ATORYCLIA [id number] [address] CALCIUM IONIZED, PH CORRECTED 1.09 mmol/L Normal 1.08-1.30 [facility] Comment on above: Order Comment: Speci men Type: VENOUS BLOOD SPECIMEN Performed By: #### 2 4344-4 ####[facility]ATORYCLIA [id number] [address] Calcium.ionized (BldV) [Mass/Vol] 1.12 mmol/L Normal 1.08-1.30 [facility] Comment on above: Order Comment: Speci men Type: VENOUS BLOOD SPECIMEN Performed By: #### 2 4344-4 ####[facility]ATORYCLIA [id number] [address] Carboxyhemoglobin (BldV) [Mass fraction] 1.7 % Normal 0.0-2.0 [facility] Comment on above: Order Comment: Speci men Type: VENOUS BLOOD SPECIMEN Result Comment: Carb oxyhemoglobin Reference Range for Smokers: 2.0-8.0% Performed By: #### 2 4344-4 ####[facility]ATORYCLIA [id number] [address] CO2 (BldV) [Partial pressure] 50 mm[Hg] Normal 42-55 [facility] Comment on above: Order Comment: Speci men Type: VENOUS BLOOD SPECIMEN Performed By: #### 2 4344-4 ####[facility]ATORYCLIA [id number] [address] CO2 [Moles/Vol] 24.9 mmol/L Low 25-29 [facility] Comment on above: Order Comment: Speci men Type: VENOUS BLOOD SPECIMEN Performed By: #### 2 4344-4 ####[facility]ATORYCLIA [id number] [address] CO2 adjusted to patient's actual temperature (BldV) [Partial pressure] 50 mmHg Normal 42-55 [facility] Comment on above: Order Comment: Speci men Type: VENOUS BLOOD SPECIMEN Performed By: #### 2 4344-4 ####[facility]ATORYCLIA [id number] [place], [place] [address] [place] [address] [place] FIO2 30 % Normal [facility] Comment on above: Order Comment: Speci men Type: VENOUS BLOOD SPECIMEN Performed By: #### 2 4344-4 ####[facility]ORATORYCLIA [id number] [address] Glucose [Mass/Vol] 191 mg/dL High 60-105 [facility] Comment on above: Order Comment: Speci men Type: VENOUS BLOOD SPECIMEN Performed By: #### 2 4344-4 ####[facility]ORYCLIA [id number] [address] HCO3 (Bld) [Moles/Vol] 27.1 mmol/L Normal 24-[address] [place] Comment on above: Order Comment: Speci men Type: VENOUS BLOOD SPECIMEN Performed By: #### 2 4344-4 ####[facility]ATORYCLIA [id number] [address] Hematocrit (Bld) [Volume fraction] 36.2 % Low 39.0-51.0 [facility] Comment on above: Order Comment: Speci men Type: VENOUS BLOOD SPECIMEN Performed By: #### 2 4344-4 ####[facility]ORYCLIA [id number] [address] Hemoglobin (Bld) [Mass/Vol] 11.8 g/dL Low 13.0-17.0 [facility] Comment on above: Order Comment: Speci men Type: VENOUS BLOOD SPECIMEN Performed By: #### 2 4344-4 ####[facility]ORYCLIA [id number] [address] INHALED TIDAL VOLUME (ML) 530 Normal [facility] Comment on above: Order Comment: Speci men Type: VENOUS BLOOD SPECIMEN Performed By: #### 2 4344-4 ####[facility]ATORYCLIA [id number] [place] [address] [facility] [place] Methemoglobin (Bld) [Mass fraction] % Normal 0.0-1.5 [facility] Comment on above: Order Comment: Speci men Type: VENOUS BLOOD SPECIMEN Performed By: #### 2 4344-4 ####[facility]ORYCLIA [id number] [place] [address] [facility] [place] O2 THERAPY Ventilator Normal [facility] Comment on above: Order Comment: Speci men Type: VENOUS BLOOD SPECIMEN Performed By: #### 2 4344-4 ####[facility]ORYCLIA [id number] [place], [place] [id number] [place] [address] OF [place] Oxygen (BldV) [Partial pressure] 69 mm[Hg] High 35-45 [facility] Comment on above: Order Comment: Speci men Type: VENOUS BLOOD SPECIMEN Performed By: #### 2 4344-4 ####[facility]ORYCLIA [id number] [place], [place] [address] [place] [address] OF [place] Oxygen adjusted to patient's actual temperature (BldV) [Partial pressure] 68.8 mmHg High 35-45 [facility] Comment on above: Order Comment: Speci men Type: VENOUS BLOOD SPECIMEN Performed By: #### 2 4344-4 ####[facility]ORYCLIA [id number] [place], [place] [id number] [place] [address] OF [place] Oxygen saturation in Blood 92.4 % High 60-85 [facility] Comment on above: Order Comment: Speci men Type: VENOUS BLOOD SPECIMEN Performed By: #### 2 4344-4 ####[facility]ATORYCLIA [id number] [place], [place] [id number] [place] [address] [place] Oxyhemoglobin (BldV) [Mass fraction] 90 % High 60-85 [facility] Comment on above: Order Comment: Speci men Type: VENOUS BLOOD SPECIMEN Performed By: #### 2 4344-4 ####[facility]ORYCLIA [id number] [address] PEEP/CPAP 8 cmH2O Normal [facility] Comment on above: Order Comment: Speci men Type: VENOUS BLOOD SPECIMEN Performed By: #### 2 4344-4 ####[facility]ORYCLIA [id number] [address] pH (BldV) 7.35 [pH] Normal 7.32-7.42 [facility] Comment on above: Order Comment: Speci men Type: VENOUS BLOOD SPECIMEN Performed By: #### 2 4344-4 ####[facility]ORYCLIA [id number] [address] pH adjusted to patient's actual temperature (BldV) 7.35 Normal 7.32-7.42 [facility] Comment on above: Order Comment: Speci men Type: VENOUS BLOOD SPECIMEN Performed By: #### 2 4344-4 ####[facility]ORYCLIA [id number] [address] Potassium [Moles/Vol] 3.6 mmol/L Normal 3.5-5.0 [facility] Comment on above: Order Comment: Speci men Type: VENOUS BLOOD SPECIMEN Performed By: #### 2 4344-4 ####[facility]ORYCLIA [id number] [address] SET VENTILATOR RESPIRATORY RATE (BPM) 18 BPM Normal [facility] Comment on above: Order Comment: Speci men Type: VENOUS BLOOD SPECIMEN Performed By: #### 2 4344-4 ####[facility]ORYCLIA [id number] [address] Sodium [Moles/Vol] 141 mmol/L Normal 136-144 [facility] Comment on above: Order Comment: Speci men Type: VENOUS BLOOD SPECIMEN Performed By: #### 2 4344-4 ####[facility]ATORYCLIA [id number] [address] HIV 1+2 Ab IA Qlon 01-28-202 2 HIV 1 and 2 Ab IA.rapid Nom Normal [facility] Comment on above: Order Comment: Speci men Type: BLOOD SPECIMEN Result Comment: Test not indicated. Performed By: #### 3 1201-7, TOXMG ####[facility]ORATORYCLIA [id number] [place] [address] [place] HIV 1+2 Ab+HIV1 [...] diagnoses. Performed By: #### 3 1201-7, TOXMG ####[facility]ORATORYCLIA [id number] [address] HIVINT Normal [facility] Comment on above: Order Comment: Speci men Type: BLOOD SPECIMEN Result Comment: No e vidence of HIV-1 or HIV-2 infection. Should recent infection be suspected, repeat testing may be considered 2-3 weeks after this draw. Performed By: #### 3 1201-7, TOXMG ####[facility]ORATORYCLIA [id number] [address] [place] Magnesium SerPl-mCncon 06-03 Magnesium [Mass/Vol] 1.9 mg/dL Normal 1.7-2.3 [facility] Comment on above: Order Comment: Speci men Type: BLOOD SPECIMEN Performed By: #### 1 9123-9, 2777-1, 51773-2 ####[facility]ORATORYCLIA [id number] [place] [address] [place] NUTRITIONon 06-03-2021 NUTRITION Normal [facility] Phosphate SerPl-mCncon 06-03 Phosphate [Mass/Vol] 1.9 mg/dL Low 2.7-4.8 [facility] Comment on above: Order Comment: Speci men Type: BLOOD SPECIMEN Performed By: #### 1 9123-9, 2777-1, 66213-4 ####[facility]ORATORYCLIA [id number] [address] TOXOPLASMOSIS IGM AND IGG AB on 06-03-2021 TOXO IGG QUAL Negative Normal Negative [facility] Comment on above: Order Comment: Speci men Type: BLOOD SPECIMEN Result Comment: No s erological evidence of past exposure to Toxoplasma gondii. Cannot exclude recent infection if the specimen collected within 3-4 weeks after infection.Negative <6.4 IU/mLEquivocal 6.4-9.9 IU/mLPositive >=10.0 IU/mL Performed By: #### 3 1201-7, TOXMG ####[facility]ORATORYCLIA [id number] [address] TOXO IGM QUAL Negative Normal Negative [facility] Comment on above: Order Comment: Speci men Type: BLOOD SPECIMEN Result Comment: No s erological evidence of recent exposure to Toxoplasma gondii.Negative <0.9 IndexEquivocal 0.9-0.99 IndexPositive >=1.0 Index Performed By: #### 3 1201-7, TOXMG ####[facility]ORATORYCLIA [id number] [address] [place] US DVT LOWER BILon US DVT LOWER RAINER Normal [facility] XR CHEST 1V FRONTALon 2021 XR CHEST 1V FRONTAL Normal [facility] ARTERIAL BLOOD GASESon 06-02 Base excess Calc (Bld) [Moles/Vol] 2 mmol/L Normal 0-2 [facility] Comment on above: Order Comment: Speci men Type: ARTERIAL BLOOD SPECIMEN Performed By: #### A LLBG ####[facility]ORATORYCLIA [id number] [address] Body temperature 99.32 [degF] Normal [facility] Comment on above: Order Comment: Speci men Type: ARTERIAL BLOOD SPECIMEN Performed By: #### A LLBG ####[facility]ORYCLIA [id number] [address] CALCIUM IONIZED, PH CORRECTED 1.15 mmol/L Normal 1.08-1.30 [facility] Comment on above: Order Comment: Speci men Type: ARTERIAL BLOOD SPECIMEN Performed By: #### A LLBG ####[facility]ATORYCLIA [id number] [address] Calcium.ionized (BldV) [Mass/Vol] 1.13 mmol/L Normal 1.08-1.30 [facility] Comment on above: Order Comment: Speci men Type: ARTERIAL BLOOD SPECIMEN Performed By: #### A LLBG ####[facility]ATORYCLIA [id number] [address] Carboxyhemoglobin (BldA) [Mass fraction] 1.4 % Normal 0.0-2.0 [facility] Comment on above: Order Comment: Speci men Type: ARTERIAL BLOOD SPECIMEN Result Comment: Carb oxyhemoglobin Reference Range for Smokers: 2.0-8.0% Performed By: #### A LLBG ####[facility] LABORATORYCLIA [id number] [address] CO2 (Bld) [Partial pressure] 39 mm Hg Normal 36-46 [facility] Comment on above: Order Comment: Speci men Type: ARTERIAL BLOOD SPECIMEN Performed By: #### A LLBG ####[facility] LABORATORYCLIA [id number] [address] [place] CO2 [Moles/Vol] 23.4 mmol/L Normal 22-28 [facility] Comment on above: Order Comment: Speci men Type: ARTERIAL BLOOD SPECIMEN Performed By: #### A LLBG ####[facility]ATORYCLIA [id number] [address] CO2 adjusted to patient's actual temperature (Bld) [Partial pressure] 40 mmHg Normal 36-46 [facility] Comment on above: Order Comment: Speci men Type: ARTERIAL BLOOD SPECIMEN Performed By: #### A LLBG ####[facility]ORYCLIA [id number] [address] Glucose [Mass/Vol] 156 mg/dL High 60-105 [facility] Comment on above: Order Comment: Speci men Type: ARTERIAL BLOOD SPECIMEN Performed By: #### A LLBG ####[facility]ORYCLIA [id number] [address] HCO3 (Bld) [Moles/Vol] 26 mmol/L Normal 22-[address] [facility] Comment on above: Order Comment: Speci men Type: ARTERIAL BLOOD SPECIMEN Performed By: #### A LLBG ####[facility]ORYCLIA [id number] [address] Hematocrit (Bld) [Volume fraction] 33.9 % Low 39.0-51.0 [facility] Comment on above: Order Comment: Speci men Type: ARTERIAL BLOOD SPECIMEN Performed By: #### A LLBG ####[facility]ORYCLIA [id number] [address] OF [facility] Hemoglobin (Bld) [Mass/Vol] 11.0 g/dL Low 13.0-17.0 [facility] Comment on above: Order Comment: Speci men Type: ARTERIAL BLOOD SPECIMEN Performed By: #### A LLBG ####[facility]ORYCLIA [id number] [address] Methemoglobin (Bld) [Mass fraction] % Normal 0.0-1.5 [facility] Comment on above: Order Comment: Speci men Type: ARTERIAL BLOOD SPECIMEN Performed By: #### A LLBG ####[facility]ORYCLIA [id number] [address] O2 THERAPY Ventilator Normal [facility] Comment on above: Order Comment: Speci men Type: ARTERIAL BLOOD SPECIMEN Performed By: #### A LLBG ####[facility]ORYCLIA [id number] [place], [place] [id number] [place] [address] Oxygen (Bld) [Partial pressure] 70 mm Hg Low 85-95 [facility] Comment on above: Order Comment: Speci men Type: ARTERIAL BLOOD SPECIMEN Performed By: #### A LLBG ####[facility]ORYCLIA [id number] [address] Oxygen adjusted to patient's actual temperature (Bld) [Partial pressure] 72.2 mmHg Low 85-95 [facility] Comment on above: Order Comment: Speci men Type: ARTERIAL BLOOD SPECIMEN Performed By: #### A LLBG ####[facility]ATORYCLIA [id number] [address] OXYGEN SATURATION, ARTERIAL 96 % Normal 95-98 [facility] Comment on above: Order Comment: Speci men Type: ARTERIAL BLOOD SPECIMEN Performed By: #### A LLBG ####[facility]ATORYCLIA [id number] [address] Oxyhemoglobin (BldA) [Mass fraction] 94 % Low 95-98 [facility] Comment on above: Order Comment: Speci men Type: ARTERIAL BLOOD SPECIMEN Performed By: #### A LLBG ####[facility]ORYCLIA [id number] [address] OF [place] pH (Bld) 7.43 [pH] Normal 7.35-7.45 [facility] Comment on above: Order Comment: Speci men Type: ARTERIAL BLOOD SPECIMEN Performed By: #### A LLBG ####[facility]ORYCLIA [id number] [address] pH adjusted to patient's actual temperature (Bld) 7.42 Normal 7.35-7.45 [facility] Comment on above: Order Comment: Speci men Type: ARTERIAL BLOOD SPECIMEN Performed By: #### A LLBG ####[facility]ORYCLIA [id number] [address] [place] Potassium [Moles/Vol] 2.6 mmol/L Low 3.5-5.0 [facility] Comment on above: Order Comment: Speci men Type: ARTERIAL BLOOD SPECIMEN Performed By: #### A LLBG ####[facility]ATORYCLIA [id number] [address] STATES OF [facility] Sodium [Moles/Vol] 142 mmol/L Normal 136-144 [facility] Comment on above: Order Comment: Speci men Type: ARTERIAL BLOOD SPECIMEN Performed By: #### A LLBG ####[facility]ATORYCLIA [id number] [address] [place] Ammonia Plas-sCncon 06-02-19 22 Ammonia (P) [Moles/Vol] 20 umol/L Normal 16-60 [facility] Comment on above: Order Comment: Speci men Type: BLOOD SPECIMEN Performed By: #### 1 6362-6 ####[facility]ORATORYCLIA [id number] [address] [place] Bacteria CSF Culton 06-02-19 22 Bacteria identified Cx Nom (CSF) CULTURE, CSF: No growth 14 days GRAM STAIN: No organisms seen Rare Polymorphonuclear leukocytes Gram stain performed on cytospun specimen. Normal [facility] Comment on above: Performed By: #### 6 06-4 ####[facility]ATORYCLIA [id number] [address] [place] Basic metabolic 2000 panelon 06-02-2021 Anion gap [Moles/Vol] 10 mmol/L Normal 9-18 [facility] Comment on above: Order Comment: Speci men Type: BLOOD SPECIMEN Performed By: #### 2 4321-2, , 2776-05 ####[facility]ORATORYCLIA [id number] [address] STATES OF [facility] Calcium [Mass/Vol] 8.1 mg/dL Low 8.5-10.2 [facility] Comment on above: Order Comment: Speci men Type: BLOOD SPECIMEN Performed By: #### 2 4321-2, , 2776 ####[facility]ORATORYCLIA [id number] [place], [place] [id number] [place] [address] [place] Chloride [Moles/Vol] 108 mmol/L High 97-105 [facility] Comment on above: Order Comment: Speci men Type: BLOOD SPECIMEN Performed By: #### 2 4321-2, , 2776-05 ####[facility]ATORYCLIA [id number] [address] [place] CO2 [Moles/Vol] 24 mmol/L Normal 22-30 [facility] Comment on above: Order Comment: Speci men Type: BLOOD SPECIMEN Performed By: #### 2 1-2, , 2776-05 ####[facility]ATORYCLIA [id number] [address] [place] Creatinine [Mass/Vol] 0.78 mg/dL Normal 0.73-1.22 [facility] Comment on above: Order Comment: Speci men Type: BLOOD SPECIMEN Performed By: #### 2 1-2, , 2776-05 ####[facility]ATORYCLIA [id number] [address] [place] GFR/1.73 sq M.predicted [...] Performed By: #### 2 4321-2, , 2776-05 ####[facility]ORATORYCLIA [id number] [place] [address] [place] Glucose [Mass/Vol] 162 [...] Performed By: #### 2 1-2, , 2776-05 ####[facility]ATORYCLIA [id number] [address] [place] Potassium [Moles/Vol] 2.7 mmol/L Low 3.7-5.1 [facility] Comment on above: Order Comment: Speci men Type: BLOOD SPECIMEN Performed By: #### 2 1-2, , 2776-05 ####[facility]ORATORYCLIA [id number] [address] [place] Sodium [Moles/Vol] 142 mmol/L Normal 136-144 [facility] Comment on above: Order Comment: Speci men Type: BLOOD SPECIMEN Performed By: #### 2 4321-2, , 2776-05 ####[facility]ORATORYCLIA [id number] [address] [place] Urea nitrogen [Mass/Vol] 12 mg/dL Normal 9-24 [facility] Comment on above: Order Comment: Speci men Type: BLOOD SPECIMEN Performed By: #### 2 1-2, , 2776-05 ####[facility]ORATORYCLIA [id number] [address] CBC panel Auto (Bld)on 06-02 Erythrocyte distribution width (RBC) [Ratio] 15.0 % Normal 11.5-15.0 [facility] Comment on above: Order Comment: Speci men Type: BLOOD SPECIMEN Performed By: #### 5 8410-2 ####[facility]ATORYCLIA [id number] [address] Hematocrit (Bld) [Volume fraction] 34.3 % Low 39.0-51.0 [facility] Comment on above: Order Comment: Speci men Type: BLOOD SPECIMEN Performed By: #### 5 8410-2 ####[facility]ATORYCLIA [id number] [address] Hemoglobin (Bld) [Mass/Vol] 10.3 g/dL Low 13.0-17.0 [facility] Comment on above: Order Comment: Speci men Type: BLOOD SPECIMEN Performed By: #### 5 8410-2 ####[facility]ORATORYCLIA [id number] [address] MCH (RBC) [Entitic mass] 27.0 pg Normal 26.0-34.0 [facility] Comment on above: Order Comment: Speci men Type: BLOOD SPECIMEN Performed By: #### 5 8410-2 ####[facility]ATORYCLIA [id number] [address] MCHC (RBC) [Mass/Vol] 30.0 g/dL Low 30.5-36.0 [facility] Comment on above: Order Comment: Speci men Type: BLOOD SPECIMEN Performed By: #### 5 8410-2 ####[facility]ATORYCLIA [id number] [address] MCV (RBC) [Entitic vol] 90.0 fL Normal 80.0-100.0 [facility] Comment on above: Order Comment: Speci men Type: BLOOD SPECIMEN Performed By: #### 5 8410-2 ####[facility]ATORYCLIA [id number] [address] Nucleated RBC (Bld) [#/Vol] 10*3/uL Normal <0.01 [facility] Comment on above: Order Comment: Speci men Type: BLOOD SPECIMEN Performed By: #### 5 8410-2 ####[facility]ATORYCLIA [id number] [address] Platelet mean volume (Bld) [Entitic vol] 10.2 fL Normal 9.0-12.7 [facility] Comment on above: Order Comment: Speci men Type: BLOOD SPECIMEN Performed By: #### 5 8410-2 ####[facility]ATORYCLIA [id number] [address] Platelets (Bld) [#/Vol] 194 10*3/uL Normal 150-400 [facility] Comment on above: Order Comment: Speci men Type: BLOOD SPECIMEN Performed By: #### 5 8410-2 ####[facility]ATORYCLIA [id number] [address] RBC (Bld) [#/Vol] 3.81 10*6/uL Low 4.20-6.00 [facility] Comment on above: Order Comment: Speci men Type: BLOOD SPECIMEN Performed By: #### 5 8410-2 ####[facility]ATORYCLIA [id number] [address] WBC (Bld) [#/Vol] 9.22 10*3/uL Normal 3.70-11.00 [facility] Comment on above: Order Comment: Speci men Type: BLOOD SPECIMEN Performed By: #### 5 8410-2 ####[facility]ORATORYCLIA [id number] [address] CONSULT PROGon 06-02-2021 CONSULT PROG Normal [facility] CSF MANUAL DIFFon 06-02-2021 DIF TTL, CSF 25 cells counted Normal [facility] Comment on above: Order Comment: Speci men Type: CEREBROSPINAL FLUID Performed By: #### 3 4563-7, [id number], [id number] ####[facility]ORYCLIA [id number] [address] [place] LYMPH%, CSF 4 % Low 50-90 [facility] Comment on above: Order Comment: Speci men Type: CEREBROSPINAL FLUID Performed By: #### 3 4563-7, [id number], [id number] ####[facility]ORYCLIA [id number] [address] [place] MACRO%, CSF 4 % High <1 [facility] Comment on above: Order Comment: Speci men Type: CEREBROSPINAL FLUID Performed By: #### 3 4563-7, [id number], [id number] ####[facility]ORYCLIA [id number] [address] [place] MONO%, CSF 20 % Normal 10-50 [facility] Comment on above: Order Comment: Speci men Type: CEREBROSPINAL FLUID Performed By: #### 3 4563-7, [id number], [id number] ####[facility]ORYCLIA [id number] [address] [place] NEUT%, CSF 72 % High 0-3 [facility] Comment on above: Order Comment: Speci men Type: CEREBROSPINAL FLUID Performed By: #### 3 4563-7, [id number], [id number] ####[facility]ORYCLIA [id number] [address] CSF PATHOLOGIST INTERP (LAB REFLEX ORDER-NO BILL)on 06-02-2021 CSF STAFF REVIEW Negative Normal [facility] Comment on above: Order Comment: Speci men Type: CEREBROSPINAL FLUID Performed By: #### 3 4563-7, [id number], [id number] ####[facility]ORYCLIA [id number] [address] Pathologist name Reviewed by Amador Stevens MD [facility] Comment on above: Order Comment: Speci men Type: CEREBROSPINAL FLUID Performed By: #### 3 4563-7, [id number], [id number] ####[facility]ORYCLIA [id number] [address] Cell count panel (CSF)on Clarity (CSF) Clear Normal Clear [facility] Comment on above: Order Comment: Speci men Type: CEREBROSPINAL FLUID Performed By: #### 3 4563-7, [id number], [id number] ####[facility]ORYCLIA [id number] [address] Clarity (Unsp spec) Not Indicated Normal Clear [facility] Comment on above: Order Comment: Speci men Type: CEREBROSPINAL FLUID Performed By: #### 3 4563-7, [id number], RCA3243 ####[facility]ORYCLIA [id number] [address] Color (CSF) Colorless Normal Colorless [facility] Comment on above: Order Comment: Speci men Type: CEREBROSPINAL FLUID Performed By: #### 3 4563-7, [id number], [id number] ####[facility]ORYCLIA [id number] [address] Color (Spun CSF) Not Indicated Normal Colorless [facility] Comment on above: Order Comment: Speci men Type: CEREBROSPINAL FLUID Performed By: #### 3 4563-7, [id number], [id number] ####[facility]ORYCLIA [id number] [address] CSF TUBE NUMBER [employer] Normal [facility] Comment on above: Order Comment: Speci men Type: CEREBROSPINAL FLUID Performed By: #### 3 4563-7, [id number], RPG0723 ####[facility]ORYCLIA [id number] [address] RBC Manual cnt (CSF) [#/Vol] 117 cells/uL High 0-5 [facility] Comment on above: Order Comment: Speci men Type: CEREBROSPINAL FLUID Performed By: #### 3 4563-7, [id number], [id number] ####[facility]ORYCLIA [id number] [address] WBC Manual cnt (CSF) [#/Vol] 1 cells/uL Normal 0-5 [facility] Comment on above: Order Comment: Speci men Type: CEREBROSPINAL FLUID Performed By: #### 3 4563-7, NPX1277, [id number] ####[facility]ORYCLIA [id number] [address] Glucose CSF-mCncon 2 Glucose (CSF) [Mass/Vol] 82 mg/dL High 40-70 [facility] Comment on above: Order Comment: Speci men Type: CEREBROSPINAL FLUID Result Comment: Lumb ar CSF glucose values of healthy patients are approximately 60% of the plasma values and must always be compared with a concurrently measured plasma value for adequate clinical interpretation.References: 1. Glucose HK (GLUC3) [package insert V 12.0 [place]]. [employer], [place], [place]. September 2015. 2. Michelle Moore, Loki HGarfield (2015). Chapter 7: Glucose and Lactate. F. Irina rose al.(eds.), Cerebrospinal Fluid in Clinical Neurology. [place]: [employer]. Performed By: #### 2 342-4 ####[facility]ATORYCLIA [id number] [address] HEPATIC FUNCTION PNLon 06-02 Albumin [Mass/Vol] 3.2 g/dL Low 3.9-4.9 [facility] Comment on above: Order Comment: Speci men Type: BLOOD SPECIMEN Performed By: #### H FP, 63519-1 ####[facility]ATORYCLIA [id number] [address] ALP [Catalytic activity/Vol] 67 U/L Normal 38-113 [facility] Comment on above: Order Comment: Speci men Type: BLOOD SPECIMEN Performed By: #### [place], [address]-3 ####[facility]ORYCLIA [id number] [address] [place] ALT With P-5'-P [Catalytic activity/Vol] 16 U/L Normal 10-54 [facility] Comment on above: Order Comment: Speci men Type: BLOOD SPECIMEN Performed By: #### [place], [address]-4 ####[facility]ORYCLIA [id number] [address] AST With P-5'-P [Catalytic activity/Vol] 25 U/L Normal 14-40 [facility] Comment on above: Order Comment: Speci men Type: BLOOD SPECIMEN Performed By: #### [place], [address]-3 ####[facility]ORYCLIA [id number] [address] Bilirubin [Mass/Vol] 0.2 mg/dL Normal 0.2-1.3 [facility] Comment on above: Order Comment: Speci men Type: BLOOD SPECIMEN Performed By: #### [place] KATHIE, 34861-0 ####[facility]ORYCLIA [id number] [address] Bilirubin.conjugated [Mass/Vol] mg/dL Normal <0.2 [facility] Comment on above: Order Comment: Speci men Type: BLOOD SPECIMEN Performed By: #### [place], [address]-3 ####[facility]ORYCLIA [id number] [address] Protein [Mass/Vol] 5.8 g/dL Low 6.3-8.0 [facility] Comment on above: Order Comment: Speci men Type: BLOOD SPECIMEN Performed By: #### [place], [address]-7 ####[facility]ORYCLIA [id number] [address] MRI BRAIN WO/W IVCONon 06-02 MRI BRAIN WO/W IVCON Normal [facility] Magnesium SerPl-mCncon 06-02 Magnesium [Mass/Vol] 2.0 mg/dL Normal 1.7-2.3 [facility] Comment on above: Order Comment: Speci men Type: BLOOD SPECIMEN Performed By: #### 2 4321-2, 58706-8, 2777-1 ####[facility]ORYCLIA [id number] [address] [facility] Natriuretic peptide.B prohormone N-Terminal [Mass/Vol] 296 pg/mL High <125 [facility] Comment on above: Order Comment: Speci men Type: BLOOD SPECIMEN Performed By: #### H FP, 91823-9 ####[facility]ATORYCLIA [id number] [address] OF [facility] POTASSIUM BLDon 06-02-2021 Potassium [Moles/Vol] 3.2 mmol/L Low 3.7-5.1 [facility] Comment on above: Order Comment: Speci men Type: BLOOD SPECIMEN Performed By: #### K 1 ####[facility]ATORYCLIA [id number] [address] Phosphate [facility] 06-02 Phosphate [Mass/Vol] 2.1 mg/dL Low 2.7-4.8 [facility] Comment on above: Order Comment: Speci men Type: BLOOD SPECIMEN Performed By: #### 2 4321-2, 20376-7, 2776-05 ####[facility]ATORYCLIA [id number] [address] OF [facility] Vancomycin random [Mass/Vol] on 06-02-2021 Vancomycin [Mass/Vol] 18.8 ug/mL Normal 10.0-20.0 [facility] Comment on above: Order Comment: Speci men Type: BLOOD SPECIMEN Result Comment: Refe rence ranges and high/low indicator flags are provided as general guidelines only. The treating physician must determine appropriate target levels/dosing based on the specific clinical situation. Performed By: #### 4 091-5 ####[facility]ATORYCLIA [id number] [address] OF [facility] ALLIED HEALTHon 06-01-2021 ALLIED HEALTH Normal [facility] ALLIED HEALTH Normal [facility] ALLIED HEALTH Normal [facility] ARTERIAL BLOOD GASESon 06-01 Base excess Calc (Bld) [Moles/Vol] 1 mmol/L Normal 0-2 [facility] Comment on above: Order Comment: Speci men Type: ARTERIAL BLOOD SPECIMEN Performed By: #### A LLBG ####[facility]ATORYCLIA [id number] [address] Body temperature 97.52 [degF] Normal [facility] Comment on above: Order Comment: Speci men Type: ARTERIAL BLOOD SPECIMEN Performed By: #### A LLBG ####[facility]ATORYCLIA [id number] [address] CALCIUM IONIZED, PH CORRECTED 1.13 mmol/L Normal 1.08-1.30 [facility] Comment on above: Order Comment: Speci men Type: ARTERIAL BLOOD SPECIMEN Performed By: #### A LLBG ####[facility]ATORYCLIA [id number] [address] STATES OF [facility] Calcium.ionized (BldV) [Mass/Vol] 1.12 mmol/L Normal 1.08-1.30 [facility] Comment on above: Order Comment: Speci men Type: ARTERIAL BLOOD SPECIMEN Performed By: #### A LLBG ####[facility]ATORYCLIA [id number] [address] OF [facility] Carboxyhemoglobin (BldA) [Mass fraction] 1.6 % Normal 0.0-2.0 [facility] Comment on above: Order Comment: Speci men Type: ARTERIAL BLOOD SPECIMEN Result Comment: Carb oxyhemoglobin Reference Range for Smokers: 2.0-8.0% Performed By: #### A LLBG ####[facility]ATORYCLIA [id number] [address] CO2 (Bld) [Partial pressure] 41 mm Hg Normal 36-46 [facility] Comment on above: Order Comment: Speci men Type: ARTERIAL BLOOD SPECIMEN Performed By: #### A LLBG ####[facility]ORYCLIA [id number] [address] CO2 [Moles/Vol] 23.0 mmol/L Normal 22-28 [facility] Comment on above: Order Comment: Speci men Type: ARTERIAL BLOOD SPECIMEN Performed By: #### A LLBG ####[facility]ORYCLIA [id number] [address] CO2 adjusted to patient's actual temperature (Bld) [Partial pressure] 40 mmHg Normal 36-46 [facility] Comment on above: Order Comment: Speci men Type: ARTERIAL BLOOD SPECIMEN Performed By: #### A LLBG ####[facility]ORYCLIA [id number] [address] FIO2 40 % Normal [facility] Comment on above: Order Comment: Speci men Type: ARTERIAL BLOOD SPECIMEN Performed By: #### A LLBG ####[facility]ORYCLIA [id number] [address] Glucose [Mass/Vol] 127 mg/dL High 60-105 [facility] Comment on above: Order Comment: Speci men Type: ARTERIAL BLOOD SPECIMEN Performed By: #### A LLBG ####[facility]ORYCLIA [id number] [address] HCO3 (Bld) [Moles/Vol] 25 mmol/L Normal 22-[address] [facility] Comment on above: Order Comment: Speci men Type: ARTERIAL BLOOD SPECIMEN Performed By: #### A LLBG ####[facility]ORYCLIA [id number] [address] Hematocrit (Bld) [Volume fraction] 33.7 % Low 39.0-51.0 [facility] Comment on above: Order Comment: Speci men Type: ARTERIAL BLOOD SPECIMEN Performed By: #### A LLBG ####[facility]ORYCLIA [id number] [address] [place] Hemoglobin (Bld) [Mass/Vol] 10.9 g/dL Low 13.0-17.0 [facility] Comment on above: Order Comment: Speci men Type: ARTERIAL BLOOD SPECIMEN Performed By: #### A LLBG ####[facility]ORYCLIA [id number] [address] INHALED TIDAL VOLUME (ML) 500 Normal [facility] Comment on above: Order Comment: Speci men Type: ARTERIAL BLOOD SPECIMEN Performed By: #### A LLBG ####[facility]ORYCLIA [id number] [address] INVASIVE VENTILATOR MODE PRVC=Pressure Regulated Volume Control Normal [facility] Comment on above: Order Comment: Speci men Type: ARTERIAL BLOOD SPECIMEN Performed By: #### A LLBG ####[facility]ORYCLIA [id number] [address] Methemoglobin (Bld) [Mass fraction] % Normal 0.0-1.5 [facility] Comment on above: Order Comment: Speci men Type: ARTERIAL BLOOD SPECIMEN Performed By: #### A LLBG ####[facility]ORYCLIA [id number] [address] [place] O2 THERAPY Ventilator Normal [facility] Comment on above: Order Comment: Speci men Type: ARTERIAL BLOOD SPECIMEN Performed By: #### A LLBG ####[facility]ORYCLIA [id number] [address] [place] Oxygen (Bld) [Partial pressure] 64 mm Hg Low 85-95 [facility] Comment on above: Order Comment: Speci men Type: ARTERIAL BLOOD SPECIMEN Performed By: #### A LLBG ####[facility]ORYCLIA [id number] [address] Oxygen adjusted to patient's actual temperature (Bld) [Partial pressure] 61.8 mmHg Low 85-95 [facility] Comment on above: Order Comment: Speci men Type: ARTERIAL BLOOD SPECIMEN Performed By: #### A LLBG ####[facility]ORYCLIA [id number] [place] [address] OXYGEN SATURATION, ARTERIAL 94 % Low 95-98 [facility] Comment on above: Order Comment: Speci men Type: ARTERIAL BLOOD SPECIMEN Performed By: #### A LLBG ####[facility]ORYCLIA [id number] [address] Oxyhemoglobin (BldA) [Mass fraction] 92 % Low 95-98 [facility] Comment on above: Order Comment: Speci men Type: ARTERIAL BLOOD SPECIMEN Performed By: #### A LLBG ####[facility]ORYCLIA [id number] [address] PEEP/CPAP 5 cmH2O Normal [facility] Comment on above: Order Comment: Speci men Type: ARTERIAL BLOOD SPECIMEN Performed By: #### A LLBG ####[facility]ORATORYCLIA [id number] [address] pH (Bld) 7.40 [pH] Normal 7.35-7.45 [facility] [facility] Comment on above: Order Comment: Speci men Type: ARTERIAL BLOOD SPECIMEN Performed By: #### A LLBG ####[facility] LABORATORYCLIA [id number] [address] pH adjusted to patient's actual temperature (Bld) 7.41 Normal 7.35-7.45 [facility] Comment on above: Order Comment: Speci men Type: ARTERIAL BLOOD SPECIMEN Performed By: #### A LLBG ####[facility]ORATORYCLIA [id number] [address] Potassium [Moles/Vol] 3.1 mmol/L Low 3.5-5.0 [facility] Comment on above: Order Comment: Speci men Type: ARTERIAL BLOOD SPECIMEN Performed By: #### A LLBG ####[facility]ORATORYCLIA [id number] [address] SET VENTILATOR RESPIRATORY RATE (BPM) 18 BPM Normal [facility] Comment on above: Order Comment: Speci men Type: ARTERIAL BLOOD SPECIMEN Performed By: #### A LLBG ####[facility]ORATORYCLIA [id number] [address] Sodium [Moles/Vol] 141 mmol/L Normal 136-144 [facility] Comment on above: Order Comment: Speci men Type: ARTERIAL BLOOD SPECIMEN Performed By: #### A LLBG ####[facility]ORATORYCLIA [id number] [address] BASE DEFICIT, ARTERIAL -1.0 mmol/L Normal -2-0 [place] Comment on above: Order Comment: Speci men Type: ARTERIAL BLOOD SPECIMEN Performed By: #### A LLBG ####[facility] LABORATORYCLIA [id number] [address] Body temperature 98.24 [degF] Normal [facility] Comment on above: Order Comment: Speci men Type: ARTERIAL BLOOD SPECIMEN Performed By: #### A LLBG ####[facility] LABORATORYCLIA [id number] [address] CALCIUM IONIZED, PH CORRECTED 1.08 mmol/L Normal 1.08-1.30 [facility] Comment on above: Order Comment: Speci men Type: ARTERIAL BLOOD SPECIMEN Performed By: #### A LLBG ####[facility] LABORATORYCLIA [id number] [address] Calcium.ionized (BldV) [Mass/Vol] 1.15 mmol/L Normal 1.08-1.30 [facility] Comment on above: Order Comment: Speci men Type: ARTERIAL BLOOD SPECIMEN Performed By: #### A LLBG ####[facility]ORATORYCLIA [id number] [address] Carboxyhemoglobin (BldA) [Mass fraction] 1.4 % Normal 0.0-2.0 [facility] Comment on above: Order Comment: Speci men Type: ARTERIAL BLOOD SPECIMEN Result Comment: Carb oxyhemoglobin Reference Range for Smokers: 2.0-8.0% Performed By: #### A LLBG ####[facility]ORATORYCLIA [id number] [place], [place] [id number] [place] [address] CO2 (Bld) [Partial pressure] 59 mm Hg High 36-46 [facility] Comment on above: Order Comment: Speci men Type: ARTERIAL BLOOD SPECIMEN Performed By: #### A LLBG ####[facility]ORATORYCLIA [id number] [place], [place] [id number] [place] [address] [place] CO2 [Moles/Vol] 24.5 mmol/L Normal 22-28 [facility] Comment on above: Order Comment: Speci men Type: ARTERIAL BLOOD SPECIMEN Performed By: #### A LLBG ####[facility]ATORYCLIA [id number] [address] CO2 adjusted to patient's actual temperature (Bld) [Partial pressure] 58 mmHg High 36-46 [facility] Comment on above: Order Comment: Speci men Type: ARTERIAL BLOOD SPECIMEN Performed By: #### A LLBG ####[facility]ORATORYCLIA [id number] [address] [place] FIO2 40 % Normal [facility] Comment on above: Order Comment: Speci men Type: ARTERIAL BLOOD SPECIMEN Performed By: #### A LLBG ####[facility]ORATORYCLIA [id number] [address] Glucose [Mass/Vol] 128 mg/dL High 60-105 [facility] Comment on above: Order Comment: Speci men Type: ARTERIAL BLOOD SPECIMEN Performed By: #### A LLBG ####[facility]ATORYCLIA [id number] [address] HCO3 (Bld) [Moles/Vol] 26 mmol/L Normal 22-[address] [facility] Comment on above: Order Comment: Speci men Type: ARTERIAL BLOOD SPECIMEN Performed By: #### A LLBG ####[facility]ORATORYCLIA [id number] [address] OF [place] Hematocrit (Bld) [Volume fraction] 35.6 % Low 39.0-51.0 [facility] Comment on above: Order Comment: Speci men Type: ARTERIAL BLOOD SPECIMEN Performed By: #### A LLBG ####[facility]ATORYCLIA [id number] [address] Hemoglobin (Bld) [Mass/Vol] 11.5 g/dL Low 13.0-17.0 [facility] Comment on above: Order Comment: Speci men Type: ARTERIAL BLOOD SPECIMEN Performed By: #### A LLBG ####[facility]ATORYCLIA [id number] [address] OF [place] INHALED TIDAL VOLUME (ML) 500 Normal [facility] Comment on above: Order Comment: Speci men Type: ARTERIAL BLOOD SPECIMEN Performed By: #### A LLBG ####[facility]ATORYCLIA [id number] [address] INVASIVE VENTILATOR MODE PRVC=Pressure Regulated Volume Control [facility] Comment on above: Order Comment: Speci men Type: ARTERIAL BLOOD SPECIMEN Performed By: #### A LLBG ####[facility]ATORYCLIA [id number] [address] OF [facility] Methemoglobin (Bld) [Mass fraction] % Normal 0.0-1.5 [facility] Comment on above: Order Comment: Speci men Type: ARTERIAL BLOOD SPECIMEN Performed By: #### A LLBG ####[facility]ATORYCLIA [id number] [address] O2 THERAPY Ventilator Normal [facility] Comment on above: Order Comment: Speci men Type: ARTERIAL BLOOD SPECIMEN Performed By: #### A LLBG ####[facility]ATORYCLIA [id number] [address] Oxygen (Bld) [Partial pressure] 88 mm Hg Normal 85-95 [facility] Comment on above: Order Comment: Speci men Type: ARTERIAL BLOOD SPECIMEN Performed By: #### A LLBG ####[facility]ATORYCLIA [id number] [address] Oxygen adjusted to patient's actual temperature (Bld) [Partial pressure] 86.5 mmHg Normal 85-95 [facility] Comment on above: Order Comment: Speci men Type: ARTERIAL BLOOD SPECIMEN Performed By: #### A LLBG ####[facility]ATORYCLIA [id number] [address] OXYGEN SATURATION, ARTERIAL 95 % Normal 95-98 [facility] Comment on above: Order Comment: Speci men Type: ARTERIAL BLOOD SPECIMEN Performed By: #### A LLBG ####[facility]ATORYCLIA [id number] [address] Oxyhemoglobin (BldA) [Mass fraction] 93 % Low 95-98 [facility] Comment on above: Order Comment: Speci men Type: ARTERIAL BLOOD SPECIMEN Performed By: #### A LLBG ####[facility]ATORYCLIA [id number] [address] PEEP/CPAP 5 cmH2O Normal [facility] Comment on above: Order Comment: Speci men Type: ARTERIAL BLOOD SPECIMEN Performed By: #### A LLBG ####[facility]ORATORYCLIA [id number] [address] OF [facility] pH (Bld) 7.27 [pH] Low 7.35-7.45 [facility] Comment on above: Order Comment: Speci men Type: ARTERIAL BLOOD SPECIMEN Performed By: #### A LLBG ####[facility]ORATORYCLIA [id number] [address] pH adjusted to patient's actual temperature (Bld) 7.28 Low 7.35-7.45 [facility] Comment on above: Order Comment: Speci men Type: ARTERIAL BLOOD SPECIMEN Performed By: #### A LLBG ####[facility]ATORYCLIA [id number] [address] Potassium [Moles/Vol] 3.3 mmol/L Low 3.5-5.0 [facility] Comment on above: Order Comment: Speci men Type: ARTERIAL BLOOD SPECIMEN Performed By: #### A LLBG ####[facility] LABORATORYCLIA [id number] [address] SET VENTILATOR RESPIRATORY RATE (BPM) 14 BPM Normal [facility] Comment on above: Order Comment: Speci men Type: ARTERIAL BLOOD SPECIMEN Performed By: #### A LLBG ####[facility] LABORATORYCLIA [id number] [address] Sodium [Moles/Vol] 141 mmol/L Normal 136-144 [facility] Comment on above: Order Comment: Speci men Type: ARTERIAL BLOOD SPECIMEN Performed By: #### A LLBG ####[facility] LABORATORYCLIA [id number] [address] Bacteria CSF Culton 06-01-19 22 Bacteria identified Cx Nom (CSF) CULTURE, CSF: No growth 14 days GRAM STAIN: No organisms seen Rare Polymorphonuclear leukocytes Moderate Red Blood Cells Gram stain performed on cytospun specimen. Normal [facility] Comment on above: Performed By: #### 6 06-4 ####[facility] LABORATORYCLIA [id number] [address] Bacteria Spec Resp Culton Bacteria identified Respiratory culture Nom (Unsp spec) CULTURE, RESPIRATORY: No growth 2 days GRAM STAIN: No organisms seen No Polymorphonuclear Leukocytes Normal [facility] Comment on above: Performed By: #### 3 2355-0 ####[facility] LABORATORYCLIA [id number] [address] Basic metabolic 2000 panelon 06-01-2021 Anion gap [Moles/Vol] 8 mmol/L Low 9-18 [facility] Comment on above: Order Comment: Speci men Type: BLOOD SPECIMEN Performed By: #### 2 4321-2, 89039-0, 2777-1 ####[facility]ORATORYCLIA [id number] [address] [place] Calcium [Mass/Vol] 7.8 mg/dL Low 8.5-10.2 [facility] Comment on above: Order Comment: Speci men Type: BLOOD SPECIMEN Performed By: #### 2 4321-2, , 2776-05 ####[facility] LABORATORYCLIA [id number] [address] STATES [facility] Chloride [Moles/Vol] 109 mmol/L High 97-105 [facility] Comment on above: Order Comment: Speci men Type: BLOOD SPECIMEN Performed By: #### 2 4321-2, , 2776-05 ####[facility] LABORATORYCLIA [id number] [address] [place] CO2 [Moles/Vol] 26 mmol/L Normal 22-30 [facility] Comment on above: Order Comment: Speci men Type: BLOOD SPECIMEN Performed By: #### 2 4321-2, , 2776-05 ####[facility] LABORATORYCLIA [id number] [address] STATES OF [facility] Creatinine [Mass/Vol] 0.82 mg/dL Normal 0.73-1.22 [facility] Comment on above: Order Comment: Speci men Type: BLOOD SPECIMEN Performed By: #### 2 4321-2, , 2776-05 ####[facility] LABORATORYCLIA [id number] [address] [place] GFR/1.73 sq M.predicted [...] Performed By: #### 2 4320-2, , 2776-05 ####[facility] LABORATORYCLIA [id number] [place] [address] [place] Glucose [Mass/Vol] 105 [...] Performed By: #### 2 4320-2, , 2776-05 ####[facility] LABORATORYCLIA [id number] [place] [address] [place] Potassium [Moles/Vol] 3.8 mmol/L Normal 3.7-5.1 [facility] Comment on above: Order Comment: Speci men Type: BLOOD SPECIMEN Performed By: #### 2 4320-2, , 2776-05 ####[facility] LABORATORYCLIA [id number] [place] [address] [place] Sodium [Moles/Vol] 143 mmol/L Normal 136-144 [facility] Comment on above: Order Comment: Speci men Type: BLOOD SPECIMEN Performed By: #### 2 4320-2, , 2776-05 ####[facility] LABORATORYCLIA [id number] [place] [address] [place] Urea nitrogen [Mass/Vol] 15 mg/dL Normal 9-24 [facility] Comment on above: Order Comment: Speci men Type: BLOOD SPECIMEN Performed By: #### 2 4321-2, 38147-7, 2777-1 ####[facility] LABORATORYCLIA [id number] [address] CBC panel Auto (Bld)on 06-01 Erythrocyte distribution width (RBC) [Ratio] 15.4 % High 11.5-15.0 [facility] Comment on above: Order Comment: Speci men Type: BLOOD SPECIMEN Performed By: #### 5 8410-2 ####[facility] LABORATORYCLIA [id number] [address] Hematocrit (Bld) [Volume fraction] 38.4 % Low 39.0-51.0 [facility] Comment on above: Order Comment: Speci men Type: BLOOD SPECIMEN Performed By: #### 5 8410-2 ####[facility] LABORATORYCLIA [id number] [address] Hemoglobin (Bld) [Mass/Vol] 11.1 g/dL Low 13.0-17.0 [facility] Comment on above: Order Comment: Speci men Type: BLOOD SPECIMEN Performed By: #### 5 8410-2 ####[facility] LABORATORYCLIA [id number] [address] MCH (RBC) [Entitic mass] 26.9 pg Normal 26.0-34.0 [facility] Comment on above: Order Comment: Speci men Type: BLOOD SPECIMEN Performed By: #### 5 8410-2 ####[facility] LABORATORYCLIA [id number] [address] MCHC (RBC) [Mass/Vol] 28.9 g/dL Low 30.5-36.0 [facility] Comment on above: Order Comment: Speci men Type: BLOOD SPECIMEN Performed By: #### 5 8410-2 ####[facility] LABORATORYCLIA [id number] [address] MCV (RBC) [Entitic vol] 93.2 fL Normal 80.0-100.0 [facility] Comment on above: Order Comment: Speci men Type: BLOOD SPECIMEN Performed By: #### 5 8410-2 ####[facility] LABORATORYCLIA [id number] [address] Nucleated RBC (Bld) [#/Vol] 10*3/uL Normal <0.01 [facility] Comment on above: Order Comment: Speci men Type: BLOOD SPECIMEN Performed By: #### 5 8410-2 ####[facility] LABORATORYCLIA [id number] [address] Platelet mean volume (Bld) [Entitic vol] 10.2 fL Normal 9.0-12.7 [facility] Comment on above: Order Comment: Speci men Type: BLOOD SPECIMEN Performed By: #### 5 8410-2 ####[facility] LABORATORYCLIA [id number] [address] Platelets (Bld) [#/Vol] 231 10*3/uL Normal 150-400 [facility] Comment on above: Order Comment: Speci men Type: BLOOD SPECIMEN Performed By: #### 5 8410-2 ####[facility] LABORATORYCLIA [id number] [address] RBC (Bld) [#/Vol] 4.12 10*6/uL Low 4.20-6.00 [facility] Comment on above: Order Comment: Speci men Type: BLOOD SPECIMEN Performed By: #### 5 8410-2 ####[facility] LABORATORYCLIA [id number] [address] OF [facility] WBC (Bld) [#/Vol] 10.99 10*3/uL Normal 3.70-11.00 [facility] Comment on above: Order Comment: Speci men Type: BLOOD SPECIMEN Performed By: #### 5 8410-2 ####[facility] LABORATORYCLIA [id number] [address] CONSULT PROGon 06-01-2021 CONSULT PROG Normal [facility] CSF MANUAL DIFFon 06-01-2021 DIF TTL, CSF 100 cells counted Normal [facility] Comment on above: Order Comment: Speci men Type: CEREBROSPINAL FLUID Performed By: #### 3 4563-7, [id number] ####[facility]ORATORYCLIA [id number] [place], [place] [address] [place] [address] LYMPH%, CSF 11 % Low 50-90 [facility] Comment on above: Order Comment: Speci men Type: CEREBROSPINAL FLUID Performed By: #### 3 4563-7, [id number] ####[facility]ORATORYCLIA [id number] [address] OF [facility] MONO%, CSF 10 % Normal 10-50 [facility] Comment on above: Order Comment: Speci men Type: CEREBROSPINAL FLUID Performed By: #### 3 4563-7, [id number] ####[facility]ATORYCLIA [id number] [address] [place] NEUT%, CSF 79 % High 0-3 [facility] Comment on above: Order Comment: Speci men Type: CEREBROSPINAL FLUID Performed By: #### 3 4563-7, [id number] ####[facility]ATORYCLIA [id number] [address] OF [facility] CT BRAIN WO IVCONon 06-01-19 CT BRAIN WO IVCON Normal [facility] Cell count panel (CSF)on Clarity (CSF) Clear Normal Clear [facility] Comment on above: Order Comment: Speci men Type: CEREBROSPINAL FLUID Performed By: #### 3 4563-7, [id number] ####[facility]ATORYCLIA [id number] [address] Clarity (Unsp spec) Not Indicated Normal Clear [facility] Comment on above: Order Comment: Speci men Type: CEREBROSPINAL FLUID Performed By: #### 3 4563-7, [id number] ####[facility]ATORYCLIA [id number] [address] Color (CSF) Colorless Normal Colorless [facility] Comment on above: Order Comment: Speci men Type: CEREBROSPINAL FLUID Performed By: #### 3 4563-7, [id number] ####[facility]ORATORYCLIA [id number] [address] Color (Spun CSF) Not Indicated Normal Colorless [facility] Comment on above: Order Comment: Speci men Type: CEREBROSPINAL FLUID Performed By: #### 3 4563-7, [id number] ####[facility] LABORATORYCLIA [id number] [address] CSF TUBE NUMBER [employer] Normal [facility] Comment on above: Order Comment: Speci men Type: CEREBROSPINAL FLUID Performed By: #### 3 4563-7, [id number] ####[facility]ORATORYCLIA [id number] [address] RBC Manual cnt (CSF) [#/Vol] 171 cells/uL High 0-5 [facility] Comment on above: Order Comment: Speci men Type: CEREBROSPINAL FLUID Performed By: #### 3 4563-7, [id number] ####[facility]ORATORYCLIA [id number] [address] WBC Manual cnt (CSF) [#/Vol] 5 cells/uL Normal 0-5 [facility] Comment on above: Order Comment: Speci men Type: CEREBROSPINAL FLUID Performed By: #### 3 4563-7, [id number] ####[facility] LABORATORYCLIA [id number] [address] [place] FUNGAL CULTUREon 06-01-2021 FUNGAL CULTURE CULTURE, FUNGAL: No Fungus isolated after 28 days Normal [facility] Comment on above: Performed By: #### F CUL ####[facility] LABORATORYCLIA [id number] [address] [place] Glucose CSF-mCncon Glucose (CSF) [...] Glucose HK (GLUC3) [package insert V 12.0 [place]]. [employer], [place], [place]. September 2015. 2. Michelle Moore, Michelle Manjarrez (2015). Chapter 7: Glucose and Lactate. F. Irina rose al.(eds.), Cerebrospinal Fluid in Clinical Neurology. [place]: [employer]. Performed By: #### 2 342-4, 2880-3 ####[facility] LABORATORYCLIA [id number] [address] [place] HERPES SIMPLEX CSFon 022 HERPES SIMPLEX CSF HSV PCR SPEC SOURCE: Cerebrospinal Fluid HSV-1: Negative for Herpes Simplex Virus Type 1 by PCR HSV-2: Negative for Herpes Simplex Virus Type 2 by PCR Normal [facility] Comment on above: Performed By: #### H [facility] ####[facility]FER[facility] LABCLIA [id number] [place] AVEDK [id number] [address] [place] Lactate (Bld) [Moles/Vol]on 06-01-2021 Lactate [Moles/Vol] 0.5 mmol/L Normal 0.5-2.2 [facility] Comment on above: Order Comment: Speci men Type: BLOOD SPECIMEN Performed By: #### 3 2693-4 ####[facility] LABORATORYCLIA [id number] [address] [place] MENINGITIS ENCEPHALITIS BIOF IREon 06-01-2021 MENINGITIS ENCEPHALITIS BIOFIRE Negative Normal [facility] Comment on above: Order Comment: Speci men Type: CEREBROSPINAL FLUID Performed By: #### M GEBF ####[facility] [id number] [place] [address] Magnesium SerPl-mCncon 06-01 Magnesium [Mass/Vol] 2.2 mg/dL Normal 1.7-2.3 [facility] Comment on above: Order Comment: Speci men Type: BLOOD SPECIMEN Performed By: #### 2 4321-2, 89406-7, 2776- ####[facility]ORATORYCLIA [id number] [address] Microorganism Spec Culton Microorganism identified Cx Nom (Unsp spec) CULTURE, AFB: No Acid Fast Bacilli isolated after 42 days AFB STAIN: No acid fast bacilli seen by flurochrome stain Normal [facility] Comment on above: Performed By: #### 1 1475-1 ####[facility] LABORATORYCLIA [id number] [address] PROCALCITONIN (LAB)on 2021 Procalcitonin [Mass/Vol] 0.08 ng/mL Normal <0.09 [facility] Comment on above: Order Comment: Speci men Type: BLOOD SPECIMEN Result Comment: For a guided interpretation of test results, please visit the [facility] in Procalcitonin Calculator, [email or web address]. Performed By: #### P ROCAL ####[facility]ORATORYCLIA [id number] [address] Phosphate SerPl-ncon 06-01 Phosphate [Mass/Vol] 3.5 mg/dL Normal 2.7-4.8 [facility] Comment on above: Order Comment: Speci men Type: BLOOD SPECIMEN Performed By: #### 2 4321-2, 26979-6, 2776-05 ####[facility] LABORATORYCLIA [id number] [address] [place] Prot CSF-mCncon 06-01-2021 Protein (CSF) [Mass/Vol] 52 mg/dL High 15-45 [facility] Comment on above: Order Comment: Speci men Type: CEREBROSPINAL FLUID Performed By: #### 2 342-4, 2880-3 ####[facility] LABORATORYCLIA [id number] [address] [place] Vancomycin random [Mass/Vol] on 06-01-2021 Vancomycin [Mass/Vol] 14.6 ug/mL Normal 10.0-20.0 [facility] Comment on above: Order Comment: Speci men Type: BLOOD SPECIMEN Result Comment: Refe rence ranges and high/low indicator flags are provided as general guidelines only. The treating physician must determine appropriate target levels/dosing based on the specific clinical situation. Performed By: #### 4 091-5 ####[facility] LABORATORYCLIA [id number] [address] STATES OF [facility] XR CHEST 1V FRONTALon 2021 XR CHEST 1V FRONTAL Normal [facility] XR CHEST 1V FRONTAL Normal [facility] XR NECK SOFT TISSUE 2V AP/LA Ton 06-01-2021 XR NECK SOFT TISSUE 2V AP/LAT Normal [facility] XR SKULL 2V AP/LATon 022 XR SKULL 2V AP/LAT Normal [facility] ALLIED HEALTHon 05-31-2021 ALLIED HEALTH HNO ID: [id number] Author: Christina Lynne RT(R) Service: Radiology Author Type: Technologist Type: Allied Health Filed: 05/31/2021 5:48 PM Note Text: MRI tomorrow per RN. Normal [facility] HEALTH Normal [facility] ALLIED HEALTH Normal [facility] HEALTH Normal [facility] ANES POSTPROC EVALon 022 ANES POSTPROC EVAL Normal [facility] ANES PRE-OPon 05-31-2021 ANES PRE-OP Normal [facility] BRIEF OP NOTon 05-31-2021 BRIEF OP NOT Normal [facility] Bacteria Bld Culton 05-31-19 22 Bacteria identified Cx Nom (Bld) CULTURE, BLOOD: No growth 5 days Normal [facility] Comment on above: Performed By: #### 6 00-7 ####[facility] LABORATORYCLIA [id number] [address] OF [facility] Bacteria CSF Culton 05-31-19 22 Bacteria identified Cx Nom (CSF) CULTURE, CSF: No growth 14 days GRAM STAIN: No organisms seen Rare Polymorphonuclear leukocytes Rare Red Blood Cells Gram stain performed on cytospun specimen. Normal [facility] Comment on above: Performed By: #### 6 06-4 ####[facility] LABORATORYCLIA [id number] [address] OF [facility] Basic metabolic 2000 panelon 05-31-2021 Anion gap [Moles/Vol] 9 mmol/L Normal 9-18 [facility] Comment on above: Order Comment: Speci men Type: BLOOD SPECIMEN Performed By: #### 2 777-1, 63707-8, ####[facility]ATORYCLIA [id number] [address] [place] Calcium [Mass/Vol] 8.2 mg/dL Low 8.5-10.2 [facility] Comment on above: Order Comment: Speci men Type: BLOOD SPECIMEN Performed By: #### 2 777-1, 01285-2, ####[facility]ATORYCLIA [id number] [address] STATES OF [facility] Chloride [Moles/Vol] 110 mmol/L High 97-105 [facility] Comment on above: Order Comment: Speci men Type: BLOOD SPECIMEN Performed By: #### 2 777-1, , ####[facility]ORATORYCLIA [id number] [address] [place] CO2 [Moles/Vol] 27 mmol/L Normal 22-30 [facility] Comment on above: Order Comment: Speci men Type: BLOOD SPECIMEN Performed By: #### 2 777-1, 08336-4, ####[facility] LABORATORYCLIA [id number] [address] [place] Creatinine [Mass/Vol] 0.85 mg/dL Normal 0.73-1.22 [facility] Comment on above: Order Comment: Speci men Type: BLOOD SPECIMEN Performed By: #### 2 777-1, 64001-5, ####[facility]ORATORYCLIA [id number] [place] [address] [place] GFR/1.73 sq M.predicted [...] actual GFR. Performed By: #### 2 777-1, 57893-3, 24247-2 ####[facility] LABORATORYCLIA [id number] [place] [address] [place] Glucose [Mass/Vol] 111 [...] 2016.39(Suppl 1). Performed By: #### 2 777-1, 97570-9, 26738-6 ####[facility] LABORATORYCLIA [id number] [place] [address] [place] Potassium [Moles/Vol] 3.7 mmol/L Normal 3.7-5.1 [facility] Comment on above: Order Comment: Speci men Type: BLOOD SPECIMEN Performed By: #### 2 777-1, 66645-1, ####[facility]ORATORYCLIA [id number] [address] Sodium [Moles/Vol] 146 mmol/L High 136-144 [facility] Comment on above: Order Comment: Speci men Type: BLOOD SPECIMEN Performed By: #### 2 777-1, 21481-8, ####[facility]ORATORYCLIA [id number] [address] STATES OF [facility] Urea nitrogen [Mass/Vol] 16 mg/dL Normal 9-24 [facility] Comment on above: Order Comment: Speci men Type: BLOOD SPECIMEN Performed By: #### 2 777-1, 92910-2, ####[facility]ORATORYCLIA [id number] [address] [place] CASE MGT INIT ASSESon 2021 CASE MGT INIT ASSES Normal [facility] CBC W Auto Differential pane l (Bld)on 05-31-2021 Basophils (Bld) [#/Vol] 0.04 10*3/uL Normal <0.11 [facility] Comment on above: Order Comment: Speci men Type: BLOOD SPECIMEN Performed By: #### 5 7021-8 ####[facility]ORATORYCLIA [id number] [address] Basophils/100 WBC (Bld) 0.5 % Normal [facility] Comment on above: Order Comment: Speci men Type: BLOOD SPECIMEN Performed By: #### 5 7021-8 ####[facility]ORATORYCLIA [id number] [address] Differential cell count method Nom (Bld) Auto Normal [facility] Comment on above: Order Comment: Speci men Type: BLOOD SPECIMEN Performed By: #### 5 7021-8 ####[facility]ATORYCLIA [id number] [address] Eosinophils (Bld) [#/Vol] 0.27 10*3/uL Normal <0.46 [facility] Comment on above: Order Comment: Speci men Type: BLOOD SPECIMEN Performed By: #### 5 7021-8 ####[facility]ORATORYCLIA [id number] [address] Eosinophils/100 WBC (Bld) 3.3 % Normal [facility] Comment on above: Order Comment: Speci men Type: BLOOD SPECIMEN Performed By: #### 5 7021-8 ####[facility]ORATORYCLIA [id number] [address] Erythrocyte distribution width (RBC) [Ratio] 15.4 % High 11.5-15.0 [facility] Comment on above: Order Comment: Speci men Type: BLOOD SPECIMEN Performed By: #### 5 7021-8 ####[facility]ORATORYCLIA [id number] [address] Hematocrit (Bld) [Volume fraction] 37.9 % Low 39.0-51.0 [facility] Comment on above: Order Comment: Speci men Type: BLOOD SPECIMEN Performed By: #### 5 7021-8 ####[facility]ATORYCLIA [id number] [address] Hemoglobin (Bld) [Mass/Vol] 11.5 g/dL Low 13.0-17.0 [facility] Comment on above: Order Comment: Speci men Type: BLOOD SPECIMEN Performed By: #### 5 7021-8 ####[facility]ORATORYCLIA [id number] [address] IMMATURE GRAN % 0.4 % Normal [facility] Comment on above: Order Comment: Speci men Type: BLOOD SPECIMEN Performed By: #### 5 7021-8 ####[facility]ORATORYCLIA [id number] [address] IMMATURE GRAN ABS 0.03 k/uL Normal <0.10 [facility] Comment on above: Order Comment: Speci men Type: BLOOD SPECIMEN Performed By: #### 5 7021-8 ####[facility]ATORYCLIA [id number] [address] Lymphocytes (Bld) [#/Vol] 1.90 10*3/uL Normal 1.00-4.00 [facility] Comment on above: Order Comment: Speci men Type: BLOOD SPECIMEN Performed By: #### 5 7021-8 ####[facility]ORATORYCLIA [id number] [address] Lymphocytes/100 WBC (Bld) 23.0 % Normal [facility] Comment on above: Order Comment: Speci men Type: BLOOD SPECIMEN Performed By: #### 5 7021-8 ####[facility]ORATORYCLIA [id number] [address] MCH (RBC) [Entitic mass] 28.0 pg Normal 26.0-34.0 [facility] Comment on above: Order Comment: Speci men Type: BLOOD SPECIMEN Performed By: #### 5 7021-8 ####[facility]ORATORYCLIA [id number] [address] MCHC (RBC) [Mass/Vol] 30.3 g/dL Low 30.5-36.0 [facility] Comment on above: Order Comment: Speci men Type: BLOOD SPECIMEN Performed By: #### 5 7021-8 ####[facility]ORATORYCLIA [id number] [address] MCV (RBC) [Entitic vol] 92.4 fL Normal 80.0-100.0 [facility] Comment on above: Order Comment: Speci men Type: BLOOD SPECIMEN Performed By: #### 5 7021-8 ####[facility]ORATORYCLIA [id number] [address] Monocytes (Bld) [#/Vol] 0.60 10*3/uL Normal <0.87 [facility] Comment on above: Order Comment: Speci men Type: BLOOD SPECIMEN Performed By: #### 5 7021-8 ####[facility]ATORYCLIA [id number] [address] Monocytes/100 WBC (Bld) 7.3 % Normal [facility] Comment on above: Order Comment: Speci men Type: BLOOD SPECIMEN Performed By: #### 5 7021-8 ####[facility]ORYCLIA [id number] [address] Neutrophils (Bld) [#/Vol] 5.41 10*3/uL Normal 1.45-7.50 [facility] Comment on above: Order Comment: Speci men Type: BLOOD SPECIMEN Performed By: #### 5 7021-8 ####[facility]ORATORYCLIA [id number] [address] Neutrophils/100 WBC (Bld) 65.5 % Normal [facility] Comment on above: Order Comment: Speci men Type: BLOOD SPECIMEN Performed By: #### 5 7021-8 ####[facility]ORYCLIA [id number] [address] Nucleated RBC (Bld) [#/Vol] 10*3/uL Normal <0.01 [facility] Comment on above: Order Comment: Speci men Type: BLOOD SPECIMEN Performed By: #### 5 7021-8 ####[facility]ORYCLIA [id number] [address] Nucleated RBC/100 WBC (Bld) [Ratio] 0.0 /100 WBC Normal 0.0 [facility] Comment on above: Order Comment: Speci men Type: BLOOD SPECIMEN Performed By: #### 5 7021-8 ####[facility]ORYCLIA [id number] [address] Platelet mean volume (Bld) [Entitic vol] 9.8 fL Normal 9.0-12.7 [facility] Comment on above: Order Comment: Speci men Type: BLOOD SPECIMEN Performed By: #### 5 7021-8 ####[facility]ORATORYCLIA [id number] [address] Platelets (Bld) [#/Vol] 251 10*3/uL Normal 150-400 [facility] Comment on above: Order Comment: Speci men Type: BLOOD SPECIMEN Performed By: #### 5 7021-8 ####[facility]ATORYCLIA [id number] [address] RBC (Bld) [#/Vol] 4.10 10*6/uL Low 4.20-6.00 [facility] Comment on above: Order Comment: Speci men Type: BLOOD SPECIMEN Performed By: #### 5 7021-8 ####[facility]ATORYCLIA [id number] [address] WBC (Bld) [#/Vol] 8.25 10*3/uL Normal 3.70-11.00 [facility] Comment on above: Order Comment: Speci men Type: BLOOD SPECIMEN Performed By: #### 5 7021-8 ####[facility]ORATORYCLIA [id number] [address] CONSULTon 05-31-2021 CONSULT Normal [facility] [...] ug/dL Performed By: #### 2 143-6, 3016-3 ####[facility]ORATORYCLIA [id number] [address] Cryptoc Ag Spec Ql LAon 05-08 Cryptococcus sp Ag LA Ql (Unsp spec) Negative Normal [facility] Comment on above: Performed By: #### 4 3228-6 ####[facility]ORATORYCLIA [id number] [address] OF [place] HISTORY PHYSICALon 2 HISTORY PHYSICAL Normal [facility] Magnesium SerPl-ncon 05-31 Magnesium [Mass/Vol] 2.2 mg/dL Normal 1.7-2.3 [facility] [place] [facility] Comment on above: Order Comment: Speci men Type: BLOOD SPECIMEN Performed By: #### 2 777-1, 36041-1, 78529-7 ####[facility]ORATORYCLIA [id number] [address] OF [place] NURSING PROGon 05-31-2021 NURSING PROG Normal [facility] NUTRITIONon 05-31-2021 NUTRITION Normal [facility] OPERATIVE NOon 05-31-2021 OPERATIVE NO Normal [facility] Phosphate SerPl-mCncon 05-31 Phosphate [Mass/Vol] 3.3 mg/dL Normal 2.7-4.8 [facility] [place] [facility] Comment on above: Order Comment: Speci men Type: BLOOD SPECIMEN Performed By: #### 2 777-1, 03128-9, ####[facility]ORATORYCLIA [id number] [address] STAPH AUREUS PCRon 2 S. aureus and MRSA panel MEGAN+probe (Nose) Normal Negative [facility] Comment on above: Order Comment: Speci men Type: SWAB OF INTERNAL NOSE Result Comment: Nega tive for Staphylococcus aureus by PCR.Negative for MRSA by PCR Performed By: #### S APCR ####[facility]ORATORYCLIA [id number] [address] [place] TSH SerPl-aCncon 05-31-2021 TSH Qn 0.829 m[IU]/L Normal 0.270-4.200 [facility] Comment on above: Order Comment: Speci men Type: BLOOD SPECIMEN Performed By: #### 2 143-6, 3016-3 ####[facility]ORATORYCLIA [id number] [address] XR CHEST 1V FRONTALon 2021 XR CHEST 1V FRONTAL Normal [facility] XR CHEST 1V FRONTAL Normal [facility] Blood Cultureon 05-30-2021 Bacteria identified Cx Nom (Bld) Culture Result - No growth 5 days Normal [facility] Comment on above: Performed By: #### C AD #### [facility] [address] [place] [address] Bacteria identified Cx Nom (Bld) Sp. Request/Comment: - 8.2MLS Culture Result - No growth 5 days Normal [facility] Comment on above: Performed By: #### C AD #### [facility] [address] [place] [address] C-Reactive Proteinon 022 C-Reactive Protein 1.7 mg/dL High <0.9 [facility] Comment on above: Performed By: #### C RP ####[facility] [address] [place] [phone] CNDSon 05-30-2021 [facility] HNO ID: [id number] Author: Columba Carroll PA-C Service: Hospital Medicine Author Type: Physician Donor Processor Type: Discharge Summary Filed: 05/30/2021 12:49 PM Note Text: ----- Attestation signed by Ayaka Menjivar MD at 06/01/2021 12:53 PM Attending Note I have personally reviewed the PA/DATAPOWER CONSULTANT note. Agree with above assessment and plan. [...] Team: Attending Provider: Ayaka Menjivar MD Physician Donor Processor: Columba Carroll PA-C Consulting: Lilo Mendoza MD [...] consulted. Neurology suggested empiric abx coverage for OBSTETRICS GYN PHYSICIAN infection Rocephin and Vancomycin was started. Tele-neuro also suggested an MRI brain be obtained prior to LP to check TAKE OFF WORKER shunt and decrease risk of herniation in neurosurgery capable facility. Transfer to [facility] requested. Sepsis lactate was 1.3. ABG showed pO2 67.8, placed patient on 2L NC.Follow B1, B12, and RPR pending. Transitions of Care Critical Issues: - patient transferred for [facility] for management of possible OBSTETRICS GYN PHYSICIAN infection and herniation. LABS AND PROCEDURES PENDING [...] intravenously q 1 (more content not included)... [facility] CONSULTon 05-30-2021 CONSULT HNO ID: [id number] Author: Juan Carlos Mckenzie MD Service: Infectious [...] vertebrae with counting from the craniocervical junction. 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 CT CERVICAL SPINE WO (more content not included)... Normal [facility] CONSULT HNO ID: [id number] Author: Lilo Mendoza MD Service: Neurology General Author Type: Physician Type: Consults Filed: 05/30/2021 10:56 AM Note Text: [facility] TeleNeurology Consult Note Patient seen using [facility]. Recommendations are placed in the chart. Please review. 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 [facility] CONSULT PROGon 05-30-2021 CONSULT PROG [facility] CONSULT PROG HNO ID: [id number] Author: Shannon Gutierres [facility] Service: Pharmacy Author Type: Pharmacist Type: Consult Progress Note Filed: 05/30/2021 2:35 PM Note Text: PHARMACY VANCOMYCIN DOSING NOTE Patient Name: Andrew Sifuentes Admission Date: 05/29/2021 Date of Consult: 05/30/2021 Time of Consult: 2:32 PM Indication: possible OBSTETRICS GYN PHYSICIAN infection Goal Range: 15-20 mcg/mL RECOMMENDATIONS/PLAN: Pharmacy [...] any questions, please contact inpatient pharmacy at [phone]. Age: [age] year old Allergies: ALLERGIES Allergen [...] Levels: No results found for: IMANI Gutierres [facility] Normal [facility] Creatinineon 05-30-2021 Creatinine [Mass/Vol] 0.86 mg/dL Normal 0.73-1.[address] [facility] Comment on above: Performed By: #### C RET1 ####[facility] Twltzzreyi9898 [address]160 eGFR- Amer. >60 Normal [facility] Comment on above: Performed By: #### C RET1 ####[facility] Mvjjssjhdq8922 [address] eGFR-All Other Races >60 Normal [facility] Comment on above: Result Comment: eGFR [...] at [email or web address]. Performed By: #### C RET1 ####[facility] [address] [place] [phone] Crypto Antigen Deton 022 Crypto Antigen Det Sp. Request/Comment: - SST Test Result - Duplicate request Account Credited [facility] Comment on above: Performed By: #### C AD #### [facility] [address] [place] [address] [facility] [address] [place] [address] Crypto Antigen Det Sp. Request/Comment: - SST Test Result - Cryptococcal antigen detection result: Negative By latex agglutination [facility] Comment on above: Performed By: #### C AD #### [facility] [address] [place] [id number] [facility] [address] [place] [address] ED NOTEon 05-30-2021 ED NOTE HNO ID: [id number] Author: Aletha Lopez RN Service: ? Author Type: Registered Nurse Type: ED Notes Filed: 05/29/2021 11:16 PM Note Text: Patient changed for incontinent urine, labs redrawn and sent. Patient aware of plan to be admitted and agrees with plan Normal [facility] HISTORY PHYSICALon HISTORY PHYSICAL Normal [facility] HISTORY PHYSICAL HNO ID: [id number] Author: Hermes Roca MD Service: Hospital Medicine Author Type: Physician Type: HANDP Filed: 05/30/2021 1:03 AM Note Text: DEPARTMENT OF HOSPITAL MEDICINE HISTORY AND PHYSICAL EXAM SERVICE DATE: 05/29/2021 SERVICE TIME: 11:18 PM Primary Care Physician: Mateus Burris MD NIGHT AND WEEKEND COVERAGE: Please page [phone] until 7:30am this morning. After 7:30am please check the treatment team banner and page the appropriate service. 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 Normal [facility] Magnesium SerPl-mCncon 05-30 Magnesium [Mass/Vol] 2.5 mg/dL High 1.7-2.3 [facility] Comment on above: Order Comment: Speci men Type: BLOOD SPECIMEN Performed By: #### 1 9123-9, 2777-1 ####[facility]ORATORYCLIA [id number] [place] [address] [place] NURSING PROGon 05-30-2021 NURSING PROG HNO ID: [id number] Author: Precious Cervantes RN Service: ? Author Type: Registered Nurse Type: Nursing Progress Note Filed: 05/30/2021 11:26 AM Note Text: Nursing Progress Note Patient Name: Andrew Sifuentes Patient Location: [place] [address]/[id number]- Daily Note: 0700- Report received from surgery attendant RN, patient resting in bed at this time, call light within reach, bed low and locked. Asked the patient to state his name because surgery attendant RN was unable to complete his admission [...] This note was completed by: Precious Cervantes [facility] NURSING PROG HNO ID: [id number] Author: Lyubov Day RN Service: ? Author Type: Registered Nurse Type: Nursing Progress Note Filed: 05/30/2021 1:27 AM Note Text: Nursing Progress Note Patient Name: Andrew STACKN: [id number] Patient Location: [facility]-0217/[id number] 0100: Patient is unresponsive to questions. Patient [...] This note was completed by: Lyubov Day [facility] Phosphate SerPl-mCncon 05-30 Phosphate [Mass/Vol] 3.5 mg/dL Normal 2.7-4.8 [facility] Comment on above: Order Comment: Speci men Type: BLOOD SPECIMEN Performed By: #### 1 9123-9, 2777-1 ####[facility]ORATORYCLIA [id number] [place] [address] [place] Sepsis Lactateon 05-30-2021 Sepsis Lactate 1.5 mmol/L Normal 0.5-2.0 [facility] Comment on above: Performed By: #### S LACT ####[facility] [address] [place] [phone] Syphilis Ttl w/Reflxon 05-30 Syphilis Interp Cannot exclude recen t Treponemal infection if specimen collected within 7 to 10 days after appearance of suspect lesions or 2 to 3 weeks after an exposure. Clinical correlation is required. [facility] Comment on above: Performed By: #### S SAMUEL RUCKER ####[facility] [place], [place] [phone] Syphilis Screen Rslt Non-Reactive Normal Non Reactive [facility] Comment on above: Performed By: #### S SAMUEL RUCKER ####[facility] [place], [place] [phone] THERAPY NTon 05-30-2021 THERAPY NT HNO ID: [id number] Author: Bette Jimenez OTR/L Service: Occupational Therapy Author Type: Occupational Therapist Type: Therapy (PT/OT/Speech/Resp) Filed: 05/30/2021 10:29 AM Note Text: OCCUPATIONAL THERAPY MISSED VISIT SERVICE DATE: 05/30/2021 SERVICE TIME: 1017 to 1019 ROOM: [place] [address] Attempted Evaluation. Patient not seen due to Not following commands. Per nursing patient was seen by neuro and they are talking about having him transferred to [facility] secondary to shunt concerns. Will re attempt in the event patient continues to be admitted at [facility] and is able to participate. SIGNATURE: RADHA Andres/L PATIENT NAME: Andrew Sifuentes DATE: May 30, 2021 TIME: 10:21 AM Normal [facility] THERAPY NT HNO ID: [id number] Author: Bette Velasquez PT Service: Physical Therapy Author Type: Physical Therapist Type: Therapy (PT/OT/Speech/Resp) Filed: 05/30/2021 8:42 AM Note Text: PHYSICAL THERAPY MISSED VISIT SERVICE DATE: 05/30/2021 SERVICE TIME: 0840 to 0840 ROOM: [place] [address] Attempted Evaluation. Patient not seen due to (pt difficult to awake per RN, very lethargic). Will re-attempt when schedule permits. SIGNATURE: Bette Velasquez PT PATIENT NAME: Andrew Sifuentes DATE: May 30, 2021 TIME: 8:41 AM Normal [facility] Toxicology Screen,Uron 05-30 Amphetamines, Urine Negative Normal Negative [facility] Comment on above: Result Comment: Cuto ff threshold at 1000 ng/mL. Performed By: #### C AD #### [facility] [address] [place] [address] [facility] [address] [place], [place] [address] Barbiturates, Urine Negative Normal Negative [facility] Comment on above: Result Comment: Cuto ff threshold at 200 ng/mL. Performed By: #### C AD #### [facility] [place] [id number] [place] [address] Benzodiazepines, Ur Negative Normal Negative [facility] Comment on above: Result Comment: Cuto ff threshold at 200 ng/mL. Performed By: #### C AD #### [facility] [place] [phone] [place] [address] Cannabinoids, Urine Negative Normal Negative [facility] Comment on above: Result Comment: Cuto ff threshold at 50 ng/mL. Performed By: #### C AD #### [facility] [address] [place] [phone] Cocaine, Urine Negative Normal Negative [facility] Comment on above: Result Comment: Cuto ff threshold at 300 ng/mL. Performed By: #### C AD #### [facility] [address] [place], [place] [phone] [place] [address] Opiates, Urine Negative Normal Negative [facility] Comment on above: Result Comment: Cuto ff threshold at 300 ng/mL. Performed By: #### C AD #### [facility] [address] [place], [place] [phone] [place] [address] Oxycodone, Urine Negative Normal [facility] [...] on the same specimen through Client Services ([phone]) if contacted within 48 hours of initial testing. [1]Substance Abuse and Mental Health Services Administration (2012). Clinical Drug Testing in Primary Care Technical Assistance Publication Series 32. Department of Health and Human Services, [place], p.10. Performed By: #### C AD #### [facility] [address] [place] [phone] Phencyclidine, Urine Negative Normal Negative [facility] Comment on above: Result Comment: Cuto ff threshold at 25 ng/mL. Performed By: #### C AD #### [facility] [address] [place] [phone] Troponin Ton 05-30-2021 Troponin T <0.010 Normal 0.000-0.029 [facility] Comment on above: Performed By: #### T NT ####[facility] [address] [place] [phone] Urinalysison 05-30-2021 Bilirubin, Urine Negative Normal Negative [facility] Comment on above: Performed By: #### C AD #### [facility] [address] [place] [phone] Clarity (U) Slightly Cloudy Critically abnormal Clear [facility] Comment on above: Performed By: #### C AD #### [facility] [address] [place] [phone] Color (U) Yellow Normal Yellow [facility] Comment on above: Performed By: #### C AD #### [facility] [address] [place], [place] [address]e [place], [place] [address] Glucose Ql (U) Negative Normal Negative [facility] Comment on above: Performed By: #### C AD #### [facility] [address] [place] [address] [facility] [address] [place], [place] [address] Hemoglobin/Blood,Ur Negative Normal Negative [facility] Comment on above: Performed By: #### C AD #### [facility] [address] [place] [address] [facility] [address] [place], [place] [address] Ketones Ql (U) Negative Normal Negative [facility] Comment on above: Performed By: #### C AD #### [facility] [address] [place] [address] [facility] [address] [place], [place] [address] Leukest Negative Normal Negative [facility] Comment on above: Performed By: #### C AD #### [facility] [address] [place] [address] [facility] [facility] [place] [address] [place], [place] [address] Nitrite Ql (U) Negative Normal Negative [facility] Comment on above: Performed By: #### C AD #### [facility] [address] [place] [address] [facility] [place] [address] [place], [place] [address] pH (U) 8.5 [pH] High 5.0-8.0 [facility] Comment on above: Performed By: #### C AD #### [facility] [address] [place] [address] [facility] [place] [address] [place], [place] [address] Protein, Urine Negative Normal Negative [facility] Comment on above: Performed By: #### C AD #### [facility] [address] [place] [address] [facility] [place] [address] [place], [place] [address] Specific [place], Ur 1.015 Normal 1.005-1.[address] [facility] Comment on above: Performed By: #### C AD #### [facility] [address] [place] [address] [facility] [place] [address] [place], [place] [address] Urobilinogen Qn (U) 0.2 {Marianne'U}/dL Normal 0.2-1.0 [facility] Comment on above: Performed By: #### C AD #### [facility] [address] [place] [address] [address] Vitamin B1, Whole Blon 05-30 Vitamin B1 (TDP), WB 207.1 nmol/L Normal 84.0-213.0 [facility] Comment on above: Result Comment: This assay measures the concentration of thiamine diphosphate (TDP), the primary active form of vitamin B1. Approximately 90 percent of vitamin B1 present in whole blood is TDP. Thiamine and thiamine monophosphate, which comprise the remaining 10 percent, are not measured. This test was developed and its performance characteristics determined by [facility]'s Isrrael Perez [facility] Pathology [facility] ( [facility]). It has not been cleared or approved by the FDA. [facility] is regulated under CLIA as qualified to perform high complexity testing. This test is used for clinical purposes. It should not be regarded as investigational or for research. Performed By: #### S YPHTX, B1WB ####[facility] [place] [place], [place] [phone] Vitamin B12on 05-30-2021 Cobalamin (Vitamin B12) [Mass/Vol] 494 pg/mL Normal 232-1245 [facility] Comment on above: Performed By: #### C AD #### [facility] [address] [place] [address] [place] [address] [place], [place] [address] ALLIED HEALTHon 05-29-2021 [facility] HNO ID: [id number] Author: RT Kitty(Lisa) Service: Radiology Author Type: Technologist Type: [facility] Filed: 05/29/2021 8:51 PM [...] Kitty(R) May 29, 2021 8:51 PM [facility] HNO ID: [id number] Author: Markie Fish Service: ? Author Type: Gas Specialist Type: [facility] Filed: 05/29/2021 8:39 PM [...] Markie Fish May 29, 2021 8:38 PM [facility] CBC and Differentialon 05-29 Abs Baso 0.05 k/uL Normal <0.11 [facility] Comment on above: Performed By: #### C MP, MG1, CBCDIF ####[facility] [address] [place] [address] Abs Dickson 0.72 k/uL Normal <0.87 [facility] Comment on above: Performed By: #### C MP, MG1, CBCDIF ####[facility] [address] [place] [address] Abs Neut 7.86 k/uL High 1.45-7.50 [facility] Comment on above: Performed By: #### C MP, MG1, CBCDIF ####[place] [address] Absolute nRBC <0.01 Normal <0.01 [facility] Comment on above: Performed By: #### C MP, MG1, CBCDIF ####[place] [address] Basophils/100 WBC (Bld) 0.5 % [facility] Comment on above: Performed By: #### C MP, MG1, CBCDIF ####[place] [address] DTYPE Auto Diff Normal [facility] Comment on above: Performed By: #### C MP, MG1, CBCDIF ####[place] [address] Eosinophils (Bld) [#/Vol] 0.10 10*3/uL Normal <0.46 [facility] Comment on above: Performed By: #### C MP, MG1, CBCDIF ####[place] [address] Eosinophils/100 WBC (Bld) 0.9 % [facility] Comment on above: Performed By: #### C MP, MG1, CBCDIF ####[place] [address] Erythrocyte distribution width (RBC) [Ratio] 15.5 % High 11.5-15.0 [facility] Comment on above: Performed By: #### C MP, MG1, CBCDIF ####[place] [address] Hematocrit (Bld) [Volume fraction] 41.6 % Normal 39.0-51.0 [facility] Comment on above: Performed By: #### C MP, MG1, CBCDIF ####[facility] [address] [place] [address] Hemoglobin (Bld) [Mass/Vol] 12.7 g/dL Low 13.0-17.0 [facility] Comment on above: Performed By: #### C MP, MG1, CBCDIF ####[facility] [address] [place] [address] Lymphocytes (Bld) [#/Vol] 2.04 10*3/uL Normal 1.00-4.00 [facility] Comment on above: Performed By: #### C MP, MG1, CBCDIF ####[facility] [address] [place] [address] Lymphocytes/100 WBC (Bld) 18.9 % Normal [facility] Comment on above: Performed By: #### C MP, MG1, CBCDIF ####[facility] [address] [place] [address] MCH 27.3 pG Normal 26.0-34.0 [facility] Comment on above: Performed By: #### C MP, MG1, CBCDIF ####[facility] [address] [place] [address] MCHC (RBC) [Mass/Vol] 30.5 g/dL Normal 30.5-36.[address] [facility] Comment on above: Performed By: #### C MP, MG1, CBCDIF ####[facility] [address] [place], [place] [id number] MCV (RBC) [Entitic vol] 89.5 fL Normal 80.0-100.0 [facility] Comment on above: Performed By: #### C MP, MG1, CBCDIF ####[facility] [address] [place], [place] [id number] Monocytes/100 WBC (Bld) 6.7 % Normal [facility] Comment on above: Performed By: #### C MP, MG1, CBCDIF ####[facility] [address] [place], [place] [phone] Neutrophils/100 WBC (Bld) 73.0 % Normal [facility] Comment on above: Performed By: #### C MP, MG1, CBCDIF ####[facility] [address] [place] [address] NRBCs 0.0 /100 WBC Normal 0 [facility] Comment on above: Performed By: #### C MP, MG1, CBCDIF ####[facility] F[address]umki4163 [address] Platelet mean volume (Bld) [Entitic vol] 10.1 fL Normal 9.0-12.7 [facility] Comment on above: Performed By: #### C MP, MG1, CBCDIF ####[facility] [address] [place] [address] Platelets (Bld) [#/Vol] 291 10*3/uL Normal 150-400 [facility] Comment on above: Performed By: #### C MP, MG1, CBCDIF ####[facility] [address] [place] [address] RBC (Bld) [#/Vol] 4.65 10*6/uL Normal 4.20-6.00 [facility] Comment on above: Performed By: #### C MP, MG1, CBCDIF ####[facility] [address] [place] [address] WBC (Bld) [#/Vol] 10.77 10*3/uL Normal 3.70-11.00 [facility] Comment on above: Performed By: #### C MP, MG1, CBCDIF ####[facility] [address] [place] [phone] CT BRAIN WO IVCONon 05-29-19 CT BRAIN [...] CLINICAL HISTORY: C-spine trauma, NEXUS/CCR positive (accession [id number]), Head trauma, headache (accession [id number]) TECHNIQUE: Serial axial unenhanced images were obtained from the vertex to the foramen magnum. Spiral, high resolution axial unenhanced images were obtained from the skull base to the cervicothoracic junction with sagittal and coronal planar reconstructions. Dose-Length Product (DLP): 2132 mGy*cm. CT Dose Reduction Employed: Automated exposure control (AEC) COMPARISON: 08/13/[address] RESULT: BRAIN: Post-operative change: Right parietal approach TAKE OFF WORKER shunt is intact. The intracranial fragments of [...] vertebrae with counting from the craniocervical junction. Septic Tank Setter: OG Transcribe Date/Time: May 29 2021 8:59P Dictated by : CARLOS YOUNGER MD This examination was interpreted and the report reviewed and electronically signed by: CARLOS YOUNGER MD on May 29 2021 9:14PM EST [id number] [facility] CT CERVICAL SPINE WO IVCONon 05-29-2021 [...] CLINICAL HISTORY: C-spine trauma, NEXUS/CCR positive (accession [id number]), Head trauma, headache (accession [id number]) TECHNIQUE: Serial axial unenhanced images were obtained from the vertex to the foramen magnum. Spiral, high resolution axial unenhanced images were obtained from the skull base to the cervicothoracic junction with sagittal and coronal planar reconstructions. Dose-Length Product (DLP): 2132 mGy*cm. CT Dose Reduction Employed: Automated exposure control (AEC) COMPARISON: 08/13/[address] RESULT: BRAIN: Post-operative change: Right parietal approach TAKE OFF WORKER shunt is intact. The intracranial fragments of [...] vertebrae with counting from the craniocervical junction. Septic Tank Setter: [facility] Transcribe Date/Time: May 29 2021 8:59P Dictated by : CARLOS YOUNGER MD This examination was interpreted and the report reviewed and electronically signed by: CARLOS YOUNGER MD on May 29 2021 9:14PM EST [id number] [facility] Cepheid Bill only (EXCFR)on 05-29-2021 Cepheid Bill only (EXCFR) Billed for services performed Normal [facility] Comment on above: Performed By: #### C AD #### [facility] [address] [place] [address] [facility] [address] [place], [place] [address] Comp Metabolic Panelon 05-29 Albumin [Mass/Vol] 4.1 g/dL Normal 3.9-4.9 [facility] Comment on above: Performed By: #### C MP ####[facility] [address] [place] [address] ALP [Catalytic activity/Vol] 86 U/L Normal 38-113 [facility] Comment on above: Performed By: #### C MP ####[facility] [address] [place] [address] ALT [Catalytic activity/Vol] 15 U/L Normal 10-54 [facility] Comment on above: Performed By: #### C MP ####[facility] [address] [place] [address] Anion gap [Moles/Vol] 9 mmol/L Normal 9-[address] [facility] Comment on above: Performed By: #### C MP ####[facility] [address] [place] [address] AST [Catalytic activity/Vol] 22 U/L Normal 14-40 [facility] Comment on above: Performed By: #### C MP ####[facility] [address] [place] [address] Bilirubin [Mass/Vol] 0.2 mg/dL Normal 0.2-1.3 [facility] Comment on above: Performed By: #### C MP ####[facility] [address] [place] [address] Calcium [Mass/Vol] 9.1 mg/dL Normal 8.5-10.2 [facility] Comment on above: Performed By: #### C MP ####[facility] [address] [place] [address] Chloride [Moles/Vol] 103 mmol/L Normal 97-105 [facility] Comment on above: Performed By: #### C MP ####[facility] [address]pwp[address] [place] [address] CO2 [Moles/Vol] 29 mmol/L Normal 22-30 [facility] Comment on above: Performed By: #### C MP ####[facility] [address] [place] [address] Creatinine [Mass/Vol] 0.89 mg/dL Normal 0.73-1.[address] [facility] Comment on above: Performed By: #### C MP ####[facility] [address] [place] [address] eGFR- Amer. >60 Normal [facility] Comment on above: Performed By: #### C MP ####[facility] [address] [place] [address] eGFR-All Other Races >60 Normal [facility] Comment on above: Result Comment: eGFR [...] at [email or web address]. Performed By: #### C MP ####[facility] S[address]mf[address]yuc8006 [address] Glucose [Mass/Vol] 120 mg/dL High 74-99 [facility] Comment on above: Result Comment: The [...] 2016.39(Suppl 1). Performed By: #### C MP ####[facility] [address] [place] [address] Potassium [Moles/Vol] 4.2 mmol/L Normal 3.7-5.[address] [facility] Comment on above: Performed By: #### C MP ####[facility] [address] [place] [address] Protein [Mass/Vol] 7.1 g/dL Normal 6.3-8.0 [facility] Comment on above: Performed By: #### C MP ####[place] [address] Sodium [Moles/Vol] 141 mmol/L Normal 136-144 [facility] Comment on above: Performed By: #### C MP ####[facility] [address] [place] [address] Urea nitrogen [Mass/Vol] 11 mg/dL Normal 9-24 [facility] Comment on above: Performed By: #### C MP ####[place] [address] Albumin [Mass/Vol] 4.1 g/dL Normal 3.9-4.9 [facility] Comment on above: Performed By: #### C MP, MG1, CBCDIF ####[place] [address] ALP [Catalytic activity/Vol] 86 U/L Normal 38-113 [facility] Comment on above: Performed By: #### C MP, MG1, CBCDIF ####[place] [address] ALT Unable to assay due to interference from hemolysis. Suggest reorder as clinically indicated. Normal 10-54 [facility] Comment on above: Result Comment: Call ed to LISA Rea at 2129 on 05.29.21 by Sabino Performed By: #### C MP, MG1, CBCDIF ####[facility] [address] [place] [address] Anion gap [Moles/Vol] 12 mmol/L Normal 9-[address] [facility] Comment on above: Performed By: #### C MP, MG1, CBCDIF ####[facility] [address] [place] [address] AST Unable to assay due to interference from hemolysis. Suggest reorder as clinically indicated. Normal 14-40 [facility] Comment on above: Result Comment: Call ed to ED Álvaro at 2129 on 05.29.21 by Sabino Performed By: #### C MP, MG1, CBCDIF ####[facility] [address] [place] [address] Bilirubin [Mass/Vol] 0.2 mg/dL Normal 0.2-1.3 [facility] Comment on above: Performed By: #### C MP, MG1, CBCDIF ####[facility] [address] [place] [address] Calcium [Mass/Vol] 9.0 mg/dL Normal 8.5-10.2 [facility] Comment on above: Performed By: #### C MP, MG1, CBCDIF ####[facility] [address] [place] [address] Chloride [Moles/Vol] 102 mmol/L Normal 97-105 [facility] Comment on above: Performed By: #### C MP, MG1, CBCDIF ####[facility] [address] [place] [address] CO2 [Moles/Vol] 27 mmol/L Normal 22-30 [facility] Comment on above: Performed By: #### C MP, MG1, CBCDIF ####[facility] [address] [place] [address] Creatinine [Mass/Vol] 0.75 mg/dL Normal 0.73-1.[address] [facility] Comment on above: Performed By: #### C MP, MG1, CBCDIF ####[facility] [address] [place] [address] eGFR- Amer. >60 Normal [facility] Comment on above: Performed By: #### C MP, MG1, CBCDIF ####[facility] [address] [place] [phone] eGFR-All Other Races >60 Normal [facility] Comment on above: Result Comment: eGFR [...] By: #### C MARÍA ELENA, MG1, CBCDIF ####[facility] [address] [place] [phone] Glucose [Mass/Vol] 112 mg/dL High 74-99 [facility] Comment on above: Result Comment: The [...] Performed By: #### C MP, MG1, CBCDIF ####[facility] [address]irj[address] [place] [phone] Potassium Unable to assay due to interference from hemolysis. Suggest reorder as clinically indicated. Normal 3.7-5.1 [facility] Comment on above: Result Comment: Call ed to ED Álvaro at 2129 on 05.29.21 by Sabino Performed By: #### C MP, MG1, CBCDIF ####[facility] [address] [place] [phone] Protein [Mass/Vol] 7.3 g/dL Normal 6.3-8.0 [facility] Comment on above: Performed By: #### C MP, MG1, CBCDIF ####[facility] T[address]pjan[address]129 [address]721[address] Sodium [Moles/Vol] 141 mmol/L Normal 136-144 [facility] Comment on above: Performed By: #### C MP, MG1, CBCDIF ####[facility] [address] [place] [phone] Urea nitrogen [Mass/Vol] 11 mg/dL Normal 9-24 [facility] Comment on above: Performed By: #### C MP, MG1, CBCDIF ####[facility] [address] [place] [phone] ED PROV NOTEon 05-29-2021 ED PROV NOTE HNO ID: [id number] Author: Shanell Slaughter MD Service: ? Author [...] No radiographic evidence of acute cardiopulmonary disease. Septic Tank Setter: [facility] Transcribe Date/Time: May 29 [...] vertebrae with counting from the craniocervical junction. Septic Tank Setter: [facility] Transcribe Date/Time: May 29 [...] vertebrae with counting from the craniocervical junction. Septic Tank Setter: [facility] Transcribe Date/Time: May 29 (more content not included)... Normal [facility] ED PROV NOTE HNO ID: [id number] Author: Flavio Pandya DO Service: Emergency Medicine Author Type: Physician Type: ED Provider Notes Filed: 05/29/2021 7:10 PM Note Text: ED Provider Note Patient Name: Andrew Sifuentes SERVICE DATE: 05/29/21 History Patient presents with: Fall 71 yo male non-smoker, hx of HTN, 2 TAKE OFF WORKER shunts, PE (not on anticoagulation now), asthma, [...] with assistance from bedside clinician. Provider Location: [facility] Patient Location: Outpatient [facility] Physical [...] Flavio Pandya, DO Flavio Pandya, 05/29/211909 Normal [facility] EXCOVD, Flu A/B, RSV (On int erfaces 1102,1120)on 05-29-2021 Influenza A PCR Negative Normal [facility] Comment on above: Performed By: #### C AD #### [facility] [address] [place], [place] [id number] [place] [address] Influenza B PCR Negative Normal [facility] Comment on above: Performed By: #### C AD #### [facility] [address] [place], [place] [address] [place] [address] RSV PCR Negative Normal [facility] Comment on above: Result Comment: This test has been authorized by [facility] under an Emergency Use Authorization (EUA). Performed By: #### C AD #### [facility] [address] [place] [address] SARS-CoV-2 (COVID-19) RNA MEGAN+probe Ql (Unsp spec) UPPER RESPIRATORY TRACT SWAB Normal [facility] Comment on above: Performed By: #### C AD #### [facility] [address] [place], [place] [address] [place] [address] SARS-CoV-2 (COVID-19) RNA MEGAN+probe Ql (Unsp spec) Negative for COVID19 (SARS CoV2) by RT-PCR or equivalent method. Normal Negative for COVID19 (SARS CoV2) by RT-PCR or equivalent method. [facility] Comment on above: Result Comment: This test has been authorized by [facility] under an Emergency Use Authorization (EUA). Performed By: #### C AD #### [facility] [address] [place], [place] [address] [place] [phone] Magnesiumon 05-29-2021 Magnesium [Mass/Vol] 2.2 mg/dL Normal 1.7-2.3 [facility] Comment on above: Performed By: #### C MP, MG1, CBCDIF ####[phone] NT Pro BNPon 05-29-2021 PRO B Natr Peptide 303 pg/mL High <125 [facility] Comment on above: Performed By: #### N TBNP ####[facility] Wsdt[address]xnak6842 [phone] Troponin Ton 05-29-2021 Troponin T <0.010 Normal 0.000-0.029 [facility] Comment on above: Performed By: #### T NT ####[facility] [address] [place] [phone] Troponin T Unable to assay due to interference from hemolysis. Suggest reorder as clinically indicated. Normal 0.000-0.029 [facility] Comment on above: Result Comment: Call ed to ED Álvaro at 2129 on 05.29.21 by Sabino Performed By: #### T NT ####[facility] W[address]vgv4821 [phone] XR CHEST 1V FRONTAL PORTon 0 [...] No radiographic evidence of acute cardiopulmonary disease. Septic Tank Setter: OG Transcribe Date/Time: May 29 2021 8:53P Dictated by : ROLY BANGURA MD This examination was interpreted and the report reviewed and electronically signed by: ROLY BANGURA MD on May 29 2021 8:54PM EST [id number] Normal [facility] COMPREHENSIVE PANELon 2020 Albumin [Mass/Vol] 3.9 g/dL Normal 3.4 - 5.0 [facility] Comment on above: Order Comment: PATIE NT FASTING Performed By: #### C MP #### [facility] [address] [place] [address] ALP [Catalytic activity/Vol] 71 U/L Normal 33 - 136 [facility] Comment on above: Order Comment: PATIE NT FASTING Performed By: #### C MP #### [facility] [address] [place] [address] ALT [Catalytic activity/Vol] 19 U/L Normal 10 - 52 [facility] Comment on above: Order Comment: PATIE NT FASTING Result Comment: Nasima ents treated with Sulfasalazine may generate falsely decreased results for ALT. Performed By: #### C MP #### [facility] [address] [place] [address] Anion gap [Moles/Vol] 13 mmol/L Normal 10 - 20 [facility] Comment on above: Order Comment: PATIE NT FASTING Performed By: #### C MP #### [facility] [address] [place] [address] AST [Catalytic activity/Vol] 20 U/L Normal 9 - 39 [facility] Comment on above: Order Comment: PATIE NT FASTING Performed By: #### C MP #### [facility] [address] [place] [address] Bilirubin [Mass/Vol] 0.6 mg/dL Normal 0.0 - 1.2 [facility] Comment on above: Order Comment: PATIE NT FASTING Performed By: #### C MP #### [facility] [address] [place] [address] Calcium [Mass/Vol] 9.0 mg/dL Normal 8.6 - 10.6 [facility] Comment on above: Order Comment: PATIE NT FASTING Performed By: #### C MP #### [facility] [address] [place] [address] Chloride [Moles/Vol] 103 mmol/L Normal 98 - 107 [facility] Comment on above: Order Comment: PATIE NT FASTING Performed By: #### C MP #### [facility] [address] [place] [address] Creatinine [Mass/Vol] 0.94 mg/dL Normal 0.50 - 1.30 [facility] Comment on above: Order Comment: PATIE NT FASTING Performed By: #### C MP #### [facility] [address] [place] [address] GFR- AM. >60 Normal >60 [facility] Comment on above: Order Comment: PATIE NT FASTING Result Comment: CALC ULATIONS OF ESTIMATED GFR ARE PERFORMED USING THE MDRD STUDY EQUATION FOR THE IDMS-TRACEABLE CREATININE METHODS. CLIN CHEM 2007;53:766-72 Performed By: #### C MP #### [facility] [address] [place] [address] GFR-NON AM. >60 Normal >60 [facility] Comment on above: Order Comment: PATIE NT FASTING Performed By: #### C MP #### [facility] [address] [place] [address] Glucose [Mass/Vol] 85 mg/dL Normal 74 - 99 [facility] [facility] Comment on above: Order Comment: PATIE NT FASTING Performed By: #### C MP #### [facility] [address] [place] [address] HCO3 (Bld) [Moles/Vol] 30 mmol/L Normal 21 - 32 [facility] Comment on above: Order Comment: PATIE NT FASTING Performed By: #### C MP #### [facility] [address] [place] [address] Potassium [Moles/Vol] 4.1 mmol/L Normal 3.5 - 5.3 [facility] Comment on above: Order Comment: PATIE NT FASTING Performed By: #### C MP #### [facility] [address] [place] [address] Protein [Mass/Vol] 6.6 g/dL Normal 6.4 - 8.2 [facility] Comment on above: Order Comment: PATIE NT FASTING Performed By: #### C MP #### [facility] [address] [place] [address] Sodium [Moles/Vol] 142 mmol/L Normal 136 - 145 [facility] Comment on above: Order Comment: PATIE NT FASTING Performed By: #### C MP #### [facility] [address] [place] [address] Urea nitrogen [Mass/Vol] 14 mg/dL Normal 6 - 23 [facility] Comment on above: Order Comment: PATIE NT FASTING Performed By: #### C MP #### [facility] [address] [place] [address] LIPID PANEL (CORONARY RISK 2 )on 09-03-2020 Cholesterol [Mass/Vol] 210 mg/dL High 0 - 199 [facility] Comment on above: Order Comment: PATIE NT [...] Performed By: #### L IPID #### [facility] [address] [place] [address] Cholesterol in HDL [Mass/Vol] 50.1 mg/dL Normal [facility] Comment on above: Order Comment: PATIE NT FASTING Result Comment: . AGE VERY LOW LOW NORMAL HIGH 0-19 Y < 35 < 40 40-45 ---- 20-24 Y ---- < 40 >45 ---- >24 Y ---- < 40 40-60 >60 . Performed By: #### L IPID #### [facility] [address] [place] [address] Cholesterol in LDL [Mass/Vol] 130 mg/dL High 0 - 99 [facility] Comment on above: Order Comment: PATIE NT FASTING Result Comment: . NEAR BORD AGE DESIRABLE OPTIMAL HIGH HIGH VERY HIGH 0-19 Y 0 - 109 --- 110-129 >/= 130 ---- 20-24 Y 0 - 119 --- 120-159 >/= 160 ---- >24 Y 0 - 99 100-129 130-159 160-189 >/=190 . Performed By: #### L IPID #### [facility] [address] [place] [address] Cholesterol in VLDL [Mass/Vol] 30 mg/dL Normal 0 - 40 [facility] Comment on above: Order Comment: PATIE NT FASTING Performed By: #### L IPID #### [facility] [address] [place] [address] Cholesterol.total/Chol esterol in HDL [Mass ratio] 4.2 {ratio} Normal [facility] Comment on above: Order Comment: PATIE NT FASTING Result Comment: REF VALUES DESIRABLE < 3.4 HIGH RISK > 5.0 Performed By: #### L IPID #### [facility] [address] [place] [address] Triglyceride [Mass/Vol] 152 mg/dL High 0 - 149 [facility] Comment on above: Order Comment: PATIE NT [...] Performed By: #### L IPID #### [facility] [address] [place] [address] PROSTATE SPEC.AG,SCREENon PROSTATE SPEC.AG,SCREEN 0.37 ng/mL Normal 0.00 - 4.00 [facility] Comment on above: Order Comment: PATIE NT FASTING Result Comment: The FDA requires that the method used for PSA assay be reported to the physician. Values obtained with different assay methods must not be used interchangeably. This test was performed at [facility] using the Siemens Sympara MedicalllMaterial Mix PSA method, which is a sandwich immunoassay using chemiluminescence for quantitation. The assay is approved for measurement of prostate-specific antigen (PSA) in serum and may be used in conjunction with a digital rectal examination in men 50 years and older as an aid in detection of prostate cancer. 8-Beezy-mtueeeflo inhibitors (e.g. Proscar, Finasteride, Avodart, Dutasteride and Elizabeth) for the treatment of BPH have been shown to lower PSA levels by an average of 50% after 6 months of treatment. Performed By: #### P SAS #### [facility] [address] [place] [address] TSH WITH REFLEX TO FREE T4 I F ABNORMALon 09-03-2020 TSH Qn 0.97 m[IU]/L Normal 0.44 - 3.98 [facility] Comment on above: Order Comment: PATIE NT FASTING Result Comment: TSH testing is performed using different testing methodology at [facility] than at other [facility]. Direct result comparisons should only be made within the same method. Performed By: #### T HYDS #### [facility] [address] [place] [address] CBC AND DIFFERENTIALon 09-02 % AUTOMATED IMMATURE GRAN 0.3 % Normal 0.0 - 0.9 [facility] Comment on above: Order Comment: PATIE NT FASTING Result Comment: [place] Granulocyte Count (IG) includes promyelocytes, myelocytes and metamyelocytes but does not include bands. Percent differential counts (%) should be interpreted in the context of the absolute cell counts (cells/L). Performed By: #### C BCDF #### [facility] [address] [place] [address] Basophils (Bld) [#/Vol] 0.07 10*3/uL Normal 0.00 - 0.10 [facility] Comment on above: Order Comment: PATIE NT FASTING Result Comment: Auto mated WBC differential has been confirmed by manual smear. Performed By: #### C BCDF #### [facility] [address] [place] [address] Basophils/100 WBC (Bld) 0.9 % Normal 0.0 - 2.0 [facility] Comment on above: Order Comment: PATIE NT FASTING Performed By: #### C BCDF #### [facility] [address] [place] [address] Eosinophils (Bld) [#/Vol] 0.21 10*3/uL Normal 0.00 - 0.70 [facility] Comment on above: Order Comment: PATIE NT FASTING Performed By: #### C BCDF #### [facility] [address] [place] [address] Eosinophils/100 WBC (Bld) 2.8 % Normal 0.0 - 6.0 [facility] Comment on above: Order Comment: PATIE NT FASTING Performed By: #### C BCDF #### [facility] [address] [place] [address] Lymphocytes (Bld) [#/Vol] 2.28 10*3/uL Normal 1.20 - 4.80 [facility] Comment on above: Order Comment: PATIE NT FASTING Performed By: #### C BCDF #### [place] [address] [place] [address] Lymphocytes/100 WBC (Bld) 30.9 % Normal 13.0 - 44.0 [facility] Comment on above: Order Comment: PATIE NT FASTING Performed By: #### C BCDF #### [facility] [address] [place] [address] Monocytes (Bld) [#/Vol] 0.50 10*3/uL Normal 0.10 - 1.00 [facility] Comment on above: Order Comment: PATIE NT FASTING Performed By: #### C BCDF #### [facility] [address] [place] [address] Monocytes/100 WBC (Bld) 6.8 % Normal 2.0 - 10.0 [facility] Comment on above: Order Comment: PATIE NT FASTING Performed By: #### C BCDF #### [facility] [address] [place] [address] Neutrophils (Bld) [#/Vol] 4.29 10*3/uL Normal 1.20 - 7.70 [facility] Comment on above: Order Comment: PATIE NT FASTING Performed By: #### C BCDF #### [facility] [address] [place] [address] Neutrophils/100 WBC (Bld) 58.3 % Normal 40.0 - 80.0 [facility] Comment on above: Order Comment: PATIE NT FASTING Performed By: #### C BCDF #### [facility] [address] [place] [address] Erythrocyte distribution width (RBC) [Ratio] 14.6 % High 11.5 - 14.5 [facility] Comment on above: Order Comment: PATIE NT FASTING Performed By: #### C BCDF #### [facility] [address] [place] [address] Hematocrit (Bld) [Volume fraction] 43.1 % Normal 41.0 - 52.0 [facility] Comment on above: Order Comment: PATIE NT FASTING Performed By: #### C BCDF #### [facility] [address] [place] [address] Hemoglobin (Bld) [Mass/Vol] 13.3 g/dL Low 13.5 - 17.5 [facility] Comment on above: Order Comment: PATIE NT FASTING Performed By: #### C BCDF #### [facility] [address] [place] [address] MCHC (RBC) [Mass/Vol] 30.9 g/dL Low 32.0 - 36.0 [facility] Comment on above: Order Comment: PATIE NT FASTING Performed By: #### C BCDF #### [facility] [address] [place] [address] MCV (RBC) [Entitic vol] 92 fL Normal 80 - 100 [facility] Comment on above: Order Comment: PATIE NT FASTING Performed By: #### C BCDF #### [facility] [address] [place] [address] NUCLEATED RBC 0.0 /100 WBC Normal 0.0-0.0 [facility] Comment on above: Order Comment: PATIE NT FASTING Performed By: #### C BCDF #### [facility] [address] [place] [address] Platelets (Bld) [#/Vol] 267 10*3/uL Normal 150 - 450 [facility] Comment on above: Order Comment: PATIE NT FASTING Performed By: #### C BCDF #### [facility] [address] [place] [address] RBC 4.69 x10E12/L Normal 4.50 - 5.90 [facility] Comment on above: Order Comment: PATIE NT FASTING Performed By: #### C BCDF #### [facility] [address] [place] [address] WBC (Bld) [#/Vol] 7.4 10*3/uL Normal 4.4 - 11.3 [facility] Comment on above: Order Comment: PATIE NT FASTING Performed By: #### C BCDF #### [facility] [address] [place] [address] RED CELL MORPHOLOGYon 2020 CHANELL CELLS Few Normal [facility] Comment on above: Order Comment: PATIE NT FASTING Performed By: #### M ORP2 #### [facility] [address] [place] [address] OVALOCYTES Few Normal [facility] Comment on above: Order Comment: PATIE NT FASTING Performed By: #### M ORP2 #### [facility] [address] [place] [address] POLYCHROMASIA Mild Normal [facility] Comment on above: Order Comment: PATIE NT FASTING Performed By: #### M ORP2 #### [facility] [address] [place] [address] RBC FRAGMENTS Few Normal [facility] Comment on above: Order Comment: PATIE NT FASTING Performed By: #### M ORP2 #### [facility] [address] [place] [address] RBC morphology finding Nom (Bld) See Below Normal [facility] Comment on above: Order Comment: PATIE NT FASTING Performed By: #### M ORP2 #### [facility] [address] [place] [address] No Panel Informationon 01-19 76 1 [facility] [...] [place] Work Phone: [email or web address] ?RetrieveTestByDateTime?P [id number]&Date=1 09-13-2019&Time=15%3a11%3a 03%3a00&TestType=ECG&Site =1&OutputType=PDF&Ext=PDF [facility] [place] Work Phone: Otheron 11-13-[address] [facility] Complete Blood Count + Diffe rentialon 11-06-2019 Basophils (Bld) [#/Vol] 0.06 {x10E9/L} See Below [facility] Work Phone: Comment on above: Reference Range: 0.0 0 - 0.10 Basophils/100 WBC (Bld) 0.8 % 0.0 - 2.0 [facility] Work Phone: [phone] Eosinophils (Bld) [#/Vol] 0.18 {x10E9/L} See Below [facility] Work Phone: Comment on above: Reference Range: 0.0 0 - 0.70 Eosinophils/100 WBC (Bld) 2.5 % 0.0 - 6.0 [facility] Work Phone: Erythrocyte distribution width (RBC) [Ratio] 13.7 % See Below [facility] Work Phone: Comment on above: Reference Range: 11. 5 - 14.5 Hematocrit (Bld) [Volume fraction] 45.5 % See Below [facility] Work Phone: Comment on above: Reference Range: 41. 0 - 52.0 Hemoglobin (Bld) [Mass/Vol] 14.0 g/dL See Below [facility] Work Phone: Comment on above: Reference Range: 13. 5 - 17.5 Lymphocytes (Bld) [#/Vol] 2.15 {x10E9/L} See Below [facility] Work Phone: Comment on above: Reference Range: 1.2 0 - 4.80 Lymphocytes/100 WBC (Bld) 29.9 % See Below [facility] Work Phone: Comment on above: Reference Range: 13. 0 - 44.0 MCHC (RBC) [Mass/Vol] 30.8 g/dL below low threshold See Below [facility] Work Phone: Comment on above: Reference Range: 32. 0 - 36.0 MCV (RBC) [Entitic vol] 94 fL 80 - 100 [facility] Work Phone: Monocytes (Bld) [#/Vol] 0.49 {x10E9/L} See Below [facility] Work Phone: Comment on above: Reference Range: 0.1 0 - 1.00 Monocytes/100 WBC (Bld) 6.8 % 2.0 - 10.0 [facility] Work Phone: Neutrophils (Bld) [#/Vol] 4.30 {x10E9/L} See Below [facility] Work Phone: Comment on above: Reference Range: 1.2 0 - 7.70 Neutrophils/100 WBC (Bld) 59.9 % See Below [facility] Work Phone: Comment on above: Reference Range: 40. 0 - 80.0 Platelets (Bld) [#/Vol] 270 {x10E9/L} 150 - 450 [facility] Work Phone: RBC (Bld) [#/Vol] 4.85 {x10E12/L} See Below [facility] Work Phone: Comment on above: Reference Range: 4.5 0 - 5.90 WBC (Bld) [#/Vol] 0.0 {/100_WBC} 0.0-0.0 [facility] Work Phone: WBC (Bld) [#/Vol] 7.2 {x10E9/L} 4.4 - 11.3 [facility] Work Phone: Complete Blood Count + Differential 0.1 % 0.0 - 0.9 [facility] Work Phone: Comment on above: Immature Granulocyte Count (IG) includes promyelocytes, myelocytes and metamyelocytes but does not include bands. Percent differential counts (%) should be interpreted in the context of the absolute cell counts (cells/L). Lipid Panelon 11-06-2019 Cholesterol [Mass/Vol] 181 mg/dL 0 - 199 [facility] Work [...] in HDL [Mass/Vol] 52.1 mg/dL [facility] Work Phone: Comment on above: . AGE VERY LOW LOW N ORMAL HIGH 0-19 Y < 35 < 40 40-45 ---- 20-24 Y ---- < 40 >45 ---- >24 Y ---- < 40 40-60 >60. Cholesterol in LDL [Mass/Vol] 97 mg/dL 0 - 99 [facility] Work Phone: Comment on above: . NEAR BORD AGE IZABELLA RABLE OPTIMAL HIGH HIGH VERY HIGH 0-19 Y 0 - 109 --- 110-129 >/= 130 ---- 20-24 Y 0 - 119 --- 120-159 >/= 160 ---- >24 Y 0 - 99 100-129 130-159 160-189 >/=190. Cholesterol.total/Chol esterol in HDL [Mass ratio] 3.5 {ratio} [facility] Work Phone: Comment on above: REF VALUESDESIRABLE < 3.4HIGH RISK > 5.0 Triglyceride [Mass/Vol] 158 mg/dL above high threshold 0 - 149 [facility] Work Phone: Comment on above: . [...] 32 mg/dL 0 - 40 [facility] Work Phone: Metabolic Panelon 11-06-2019 ALP [Catalytic activity/Vol] 70 U/L 33 - 136 [facility] Work Phone: Anion gap [Moles/Vol] 13 mmol/L 10 - 20 [facility] Work Phone: Bilirubin [Mass/Vol] 0.6 mg/dL 0.0 - 1.2 [facility] Work Phone: Calcium [Mass/Vol] 9.4 mg/dL 8.6 - 10.6 [facility] Work Phone: Chloride [Moles/Vol] 99 mmol/L 98 - 107 [facility] Work Phone: CO2 [Moles/Vol] 30 mmol/L 21 - 32 [facility] Work Phone: Creatinine [Mass/Vol] 0.87 mg/dL See Below [facility] Work Phone: Comment on above: Reference Range: 0.5 0 - 1.30 Glucose [Mass/Vol] 89 mg/dL 74 - 99 [facility] Work Phone: Potassium [Moles/Vol] 4.3 mmol/L 3.5 - 5.3 [facility] Work Phone: Protein [Mass/Vol] 7.3 g/dL 6.4 - 8.2 [facility] Work Phone: Sodium [Moles/Vol] 138 mmol/L 136 - 145 [facility] Work Phone: Urea nitrogen [Mass/Vol] 14 mg/dL 6 - 23 [facility] Work Phone: Otheron 11-06-2019 Albumin BCP dye [Mass/Vol] 4.4 g/dL 3.4 - 5.0 [facility] Work Phone: ALT With P-5'-P [Catalytic activity/Vol] 11 U/L 10 - 52 [facility] Work Phone: Comment on above: Patients treated wit h Sulfasalazine may generate falsely decreased results for ALT. AST With P-5'-P [Catalytic activity/Vol] 17 U/L 9 - 39 [facility] Work Phone: >60 >60 [facility] Work Phone: Comment on above: CALCULATIONS OF LUZMARIA MATED GFR ARE PERFORMED USING THE MDRD STUDY EQUATION FOR THE IDMS-TRACEABLE CREATININE METHODS. CLIN CHEM 2007;53:766-72 Culture, urine Bacteria identified Cx Nom (U) Mixed Gram Pos & Gram Neg Org [facility] Work Phone: Bacteria identified Cx Nom (U) Klebsiella pneumoniae sp pneum [facility] Work Phone: Vital Signs Date Time Vital Sign Value Performing Clinician Facility 09-13-2023 11:48-0400 Body height 175.3 cm Rebecca Buck MD Work Phone: [facility] 09-13-2023 11:48-0400 Body mass index (BMI) [Ratio] 25.84 kg/m2 Rebecca Buck MD Work Phone: [facility] 09-13-2023 11:48-0400 Body weight 79.38 kg Rebecca Buck MD Work Phone: [facility] 08-13-2023 09:56-0400 Body height 175.3 cm Rebecca Buck MD Work Phone: [facility] 08-13-2023 09:56-0400 Body mass index (BMI) [Ratio] 25.84 kg/m2 Rebecca Buck MD Work Phone: [facility] 08-13-2023 09:56-0400 Body weight 79.38 kg Rebecca Buck MD Work Phone: [facility] 03-02-2022 18:49-0400 Body temperature 98.01 [degF] Lanette Munguia DO Work Phone: [facility] 03-02-2022 18:49-0400 Diastolic blood pressure 72 mm[Hg] Lan[facility]unguia DO [facility] 03-02-2022 18:49-0400 Heart rate 94 /min Lanette Munguia DO Work Phone: [facility] 03-02-2022 18:49-0400 Respiratory rate 18 /min Lanette Munguia DO Work Phone: [facility] 03-02-2022 18:49-0400 SaO2% (BldA) [Mass fraction] 98 % Lanette Munguia DO Work Phone: [facility] 03-02-2022 18:49-0400 Systolic blood pressure 104 mm[Hg] Lanette Munguia DO Work Phone: [facility] 03-02-2022 11:55-0400 Body height 175.3 cm Lanette Munguia DO Work Phone: [facility] 03-02-2022 11:55-0400 Body mass index (BMI) [Ratio] 25.84 kg/m2 Lanette Munguia DO Work Phone: [facility] 03-02-2022 11:55-0400 Body weight 79.38 kg Lanette Munguia DO Work Phone: [facility] 12-22-2021 02:08-0400 Diastolic blood pressure 67 mm[Hg] Sharon Olivia MD Work Phone: [facility] 12-22-2021 02:08-0400 Heart rate 77 /min Sharon Olivia MD Work Phone: [facility] 12-22-2021 02:08-0400 Respiratory rate 16 /min Sharon Olivia MD Work Phone: [facility] 12-22-2021 02:08-0400 SaO2% (BldA) [Mass fraction] 96 % Sharon Olivia MD Work Phone: [facility] 12-22-2021 02:08-0400 Systolic blood pressure 108 mm[Hg] Sharon Olivia MD Work Phone: [facility] 12-21-2021 23:52-0400 Body height 175.3 cm Sharon Olivia MD Work Phone: [facility] 12-21-2021 23:52-0400 Body mass index (BMI) [Ratio] 25.84 kg/m2 Sharon Olivia MD Work Phone: [facility] 12-21-2021 23:52-0400 Body temperature 97.9 [degF] Sharon Olivia MD Work Phone: [facility] 12-21-2021 23:52-0400 Body weight 79.38 kg Sharon Olivia MD Work Phone: [facility] 11-01-2021 08:41-0400 Diastolic blood pressure 77 mm[Hg] Dante Kim MD Work Phone: [facility] 11-01-2021 08:41-0400 Heart rate 75 /min Dante Kim MD Work Phone: [facility] 11-01-2021 08:41-0400 Respiratory rate 16 /min Dante Kim MD Work Phone: [facility] 11-01-2021 08:41-0400 SaO2% (BldA) [Mass fraction] 97 % Dante Kim MD Work Phone: [facility] 11-01-2021 08:41-0400 Systolic blood pressure 112 mm[Hg] Dante Kim MD Work Phone: [facility] 10-31-2021 19:13-0400 Body height 177.8 cm Dante Kim MD Work Phone: [facility] 10-31-2021 19:13-0400 Body mass index (BMI) [Ratio] 27.26 kg/m2 Dante Kim MD Work Phone: [facility] 10-31-2021 19:13-0400 Body temperature 98.49 [degF] Dante Kim MD Work Phone: [facility] 10-31-2021 19:13-0400 Body weight 86.18 kg Dante Kim MD Work Phone: [facility] 10-29-2021 07:38-0400 Body temperature 97.81 [degF] Lisa Miguel Angel DO Work Phone: [facility] 10-29-2021 07:38-0400 Diastolic blood pressure 79 mm[Hg] Lisa Miguel Angel DO Work Phone: [facility] 10-29-2021 07:38-0400 Heart rate 80 /min Lisa Miguel Angel DO Work Phone: [facility] 10-29-2021 07:38-0400 Respiratory rate 18 /min Lisa Miguel Angel DO Work Phone: [facility] 10-29-2021 07:38-0400 SaO2% (BldA) [Mass fraction] 96 % Lisa Miguel Angel DO Work Phone: [facility] 10-29-2021 07:38-0400 Systolic blood pressure 123 mm[Hg] Lisa Miguel Angel DO Work Phone: [facility] 10-25-2021 13:55-0400 Body height 170.2 cm Lisa Miguel Angel DO Work Phone: [facility] 10-21-2021 00:57-0400 Body mass index (BMI) [Ratio] 37.58 kg/m2 Lisa Miguel Angel DO Work Phone: [facility] 10-21-2021 00:57-0400 Body weight 108.86 kg Lisa Miguel Angel DO Work Phone: [facility] 07-13-2020 13:21-0500 BMI (Body Mass Index) 40.47 kg/m2 Monika Staley [facility] Work Phone: 07-13-2020 13:21-0500 Body Temperature 98 [degF] Monika Staley [facility] Work Phone: 07-13-2020 13:21-0500 Body [...] Source: 04-13-2020 15:33-0500 0 1 Wing Ritter [facility] Work Phone: Comment on above: Pain Scale 01-20-2020 16:39-0400 Body height 175.26 cm Monika Staley MD [facility] [place] Work Phone: 01-20-2020 16:39-0400 Body mass index (BMI) [Ratio] 39.28 kg/m2 Monika Staley MD UT-Hfoimogzwt-Ekz [facility] [address] [place] Work Phone: 01-20-2020 16:39-0400 Body surface area Derived from formula 2.33 m2 Monika Staley MD II-Ycqvqulsss-Nat russ [address] [place] Work Phone: 01-20-2020 16:39-0400 Body weight 120.66 kg Monika Staley MD [facility] [place] Work Phone: 01-20-2020 16:39-0400 Diastolic blood pressure 84 mm[Hg] Monika Staley MD PJ-Fmfoenuzvn-Yfs russ [address] [place] Work Phone: Comment on above: Location: [facility]; Position: Sitting 01-20-2020 16:39-0400 Heart rate 80 /min Monika Staley MD, [facility] [place] Work Phone: 01-20-2020 16:39-0400 SaO2% (BldA) [Mass fraction] 100 % Monika Staley MD IJ-Pcjkczphku-Nmb russ [address] [place] Work Phone: Comment on above: Source: 01-20-2020 16:39-0400 Systolic blood pressure 144 mm[Hg] Monika Staley MD HY-Arjxjzitab-Ojq russ [address] [place] Work Phone: Comment on [...] 15:29-0400 BP Systolic 140 mm[Hg] Monika Staley [facility] Work Phone: 11-06-2019 15:29-0400 BSA (Body Surface Area) 2.31 m2 Monika Staley [facility] Work Phone: 11-06-2019 15:29-0400 Height 175.26 cm Monika Staley [facility] Work Phone: Encounters Encounter Date Encounter Type Care Provider Facility Start: 03-16-2025 ambulatory Carlos Cavazos OLS Faci lity:[facility] Start: 03-13-2025 ambulatory Carlos Quickros OLS Faci lity:[facility] Start: 03-12-2025 [facility] Start: 03-11-2025 ambulatory Carlos Quickros OLS Faci lity:[facility] Start: 03-09-2025 ambulatory Mahaveer kka flash OLS Facility:[facility] Start: 03-05-2025 [facility] Start: 03-02-2025 ambulatory Peter Katsaros OLS Faci lity:[facility] Start: 02-26-2025 ambulatory Mahaveer kka flash OLS Facility:[facility] Start: 02-23-2025 [facility]ulatory [facility] Start: 02-19-2025 ambulatory Karon muellera OLS Facility:[facility] Start: 02-16-2025 End: 02-16-2025 ambulatory Karon Farmera OLS Facility:[facility] Start: 02-12-2025 [facility] Start: 02-12-2025 End: 02-12-2025 ambulatory Karon Farmera OLS Facility:[facility] Start: 02-09-2025 Registered Referred Carlos Cavazos - [facility] Start: 02-09-2025 ambulatory Carlos Cavazos OLS Faci lity:[facility] Start: 02-05-2025 [facility]istered [facility] Start: 02-05-2025 End: 02-05-2025 ambulatory Karon Farmera OLS Facility:[facility] Start: 02-02-2025 Registered [facility] Start: 02-02-2025 End: 02-02-2025 ambulatory Karon Farmera OLS Facility:[facility] Start: 01-29-2025 [facility] Start: 01-29-2025 End: 01-29-2025 ambulatory Karon Farmera OLS Facility:[facility] Start: 01-26-2025 Registered [facility] Start: 01-26-2025 End: 01-26-2025 ambulatory Karon Delacruzlla OLS Facility:[facility] Start: 01-22-2025 [facility] Start: 01-22-2025 End: 01-22-2025 ambulatory Carlaavenoe Delacruzlla OLS Facility:[facility] Start: 01-19-2025 Registered Referred Carlos Cavazos - [facility] Start: 01-19-2025 End: 01-19-2025 ambulatory Carlos Cavazos OLS Facility:[facility] Start: 01-15-2025 Registered Referred Karon casillas MD -[facility] Start: 01-15-2025 End: 01-15-2025 ambulatory [facility] O[facility] Facility:[facility] Start: 01-12-2025 Registered Referred Karon casillas MD -[facility] Start: 01-12-2025 End: 01-12-2025 ambulatory [facility] OLS Facility:[facility] Start: 01-08-2025 Registered Referred Karon casillas MD -[facility] Start: 01-08-2025 End: 01-08-2025 ambulatory [facility] OLS Facility:[facility] Start: 01-06-2025 Registered Referred Karon casillas MD -[facility] Start: 01-06-2025 End: 01-06-2025 ambulatory [facility] OLS Facility:[facility] Start: 01-01-2025 End: 01-01-[address] Monika Staley MD Work Phone: [facility] Start: 01-01-2025 End: 01-01-2025 Departed Referred Karon Corrales MD -[facility] Start: 01-01-2025 Registered Referred Karon casillas MD -[facility] Start: 01-01-2025 End: 01-01-2025 [facility] Start: 12-29-2024 Registered Referred Carlos Cavazos - [facility] Start: 12-29-2024 End: 12-29-2024 ambulatory Carlos Cavazos OLS Facility:[facility] Start: 12-26-2024 End: 12-26-[address] Monika Staley MD Work Phone: [facility] Start: 12-26-2024 End: 12-26-2024 Departed Referred Karon Corrales MD -[facility] Start: 12-26-2024 Registered Referred Karon casillas MD -[facility] Start: 12-26-2024 End: 12-26-2024 ambulatory Mahaveer Mukkamalla OLS Facility:[facility] Start: 12-25-2024 Registered Referred Karon casillas MD -[facility] Start: 12-24-2024 End: 12-25-2024 ambulatory Mahaveer Mukkamalla OLS Facility:[facility] Start: 12-24-2024 Registered Referred Carlos Lópezsaros - [facility] Start: 12-22-2024 ambulatory [facility] flash OLS Facility:[facility] Start: 12-22-2024 Registered Referred Karon casillas MD -[facility] Start: 12-18-2024 Registered Referred Karon casillas MD -[facility] Start: 12-18-2024 End: 12-18-2024 ambulatory Carlaaveer Princeamalla OLS Facility:[facility] Start: 12-15-2024 [facility] Start: 12-15-2024 Registered Referred Karon casillas MD -[facility] Start: 12-11-2024 Registered Referred Carlos Cavazos - [facility] Start: 12-11-2024 End: 12-11-2024 ambulatory Carlos Maribelkameron OLS Facility:[facility] Start: 12-08-2024 Registered Referred Karon casillas MD -[facility] Start: 12-08-2024 End: 12-08-2024 ambulatory Mahaveer Mukkamalla OLS Facility:[facility] Start: 12-04-2024 Registered Referred Karon casillas MD -[facility] Start: 12-04-2024 End: 12-04-2024 ambulatory Mahaveer kkamalla OLS Facility:[facility] Start: 12-02-2024 [facility]ulatory [facility] Start: 12-02-2024 Registered Referred Karon casillas MD -[facility] Start: 12-01-2024 ambulatory Carlos NOVAK Faci lity:[facility] Start: 12-01-2024 Registered Referred Carlos Cavazos - [facility] Start: 11-28-2024 Registered Referred Carlos Cavazos - [facility] Start: 11-28-2024 End: 11-28-2024 ambulatory Carlos Cavazos OLS Facility:[facility] Start: 11-27-2024 Registered Referred Karon casillas MD -[facility] Start: 11-27-2024 End: 11-27-2024 ambulatory Karon inga OLS Facility:[facility] Start: 11-24-2024 [facility] Start: 11-24-2024 Registered Referred Karon casillas MD -[facility] Start: 11-20-2024 Registered Referred Karon casillas MD -[facility] Start: 11-20-2024 End: 11-20-2024 ambulatory Karon NOVAK Facility:[facility] Start: 11-17-2024 ambulatory Shiela Luís Facili ty:[facility] Start: 11-17-2024 Registered Referred Karon casillas MD -[facility] Start: 11-13-2024 ambulatory Shiela Luís Facili ty:[facility] Start: 11-13-2024 Registered Referred Karon casillas MD -[facility] Start: 11-10-2024 [facility]ulatory [facility] Start: 11-10-2024 Registered Referred Karon casillas MD -[facility] Start: 11-06-2024 Registered Referred Karon casillas MD -[facility] Start: 11-06-2024 End: 11-06-2024 ambulatory Karon Corrales OLS Facility:[facility] Start: 11-03-2024 End: 11-03-[address] Monika Staley MD Work Phone: -[facility] Start: 11-03-2024 End: 11-03-2024 Departed Referred Carlos Maribelkameron -[facility] Start: 11-03-2024 Registered Referred Carlos Maribelkameron - [facility] Start: 11-03-2024 End: 11-03-2024 ambulatory Carlos Cavazos OLS Facility:[facility] Start: 10-30-2024 End: 10-30-[address] Monika Staley MD Work Phone: [facility] Start: 10-30-2024 End: 10-30-2024 Departed Referred Karon Corrales MD -[facility] Start: 10-30-2024 Registered Referred Karon casillas MD -[facility] Start: 10-30-2024 End: 10-30-2024 ambulatory Monika Staley Facility:[facility] Start: 10-27-2024 Registered Referred Karon casillas MD -[facility] Start: 10-27-2024 End: 10-27-2024 ambulatory Karon NOVAK Facility:[facility] Start: 10-23-2024 Registered Referred Karon casillas MD -[facility] Start: 10-23-2024 End: 10-23-2024 ambulatory Monika Staley Facility:[facility] Start: 10-20-2024 End: 10-20-[address] Monika Staley MD Work Phone: [facility] Start: 10-20-2024 End: 10-20-2024 Departed Referred Karon Corrales MD -[facility] Start: 10-20-2024 Registered Referred Karon casillas MD -[facility] Start: 10-20-2024 End: 10-20-2024 ambulatory Karon Corrales OLS Facility:[facility] Start: 10-16-2024 ambulatory Monika Horner Luís Facili ty:[facility] Start: 10-16-2024 Registered Referred Karon casillas MD -[facility] Start: 10-13-2024 ambulatory Carlos Cavazos OLS Faci lity:[facility] Start: 10-13-2024 Registered Referred Carlos Cavazos - [facility] Start: 10-09-2024 ambulatory Shiela Luís Facili ty:[facility] Start: 10-09-2024 Registered Referred Karon casillas MD -[facility] Start: 10-06-2024 ambulatory Carlos Cavazos OLS Faci lity:[facility] Start: 10-06-2024 Registered Referred Carlos Cavazos - [facility] Start: 10-02-2024 ambulatory Shiela Luís Facili ty:[facility] Start: 10-02-2024 Registered Referred Karon casillas MD -[facility] Start: 09-30-2024 End: 09-30-[address] Monika Staley MD Work Phone: [facility] Work Phone: Start: 09-30-2024 End: 09-30-2024 Departed Referred Karon Corrales MD -[facility] Start: 09-30-2024 Registered Referred Karon casillas MD -[facility] Start: 09-30-2024 End: 09-30-2024 ambulatory Karon NOVAK Facility:[facility] Start: 09-25-2024 ambulatory Karon vidales OLS Facility:[facility] Start: 09-25-2024 Registered [facility] Start: 09-22-2024 End: 09-22-[address] Monika Staley MD Work Phone: [facility] Start: 09-22-2024 End: 09-22-2024 Departed Referred Karon Corrales MD -[facility] Start: 09-22-2024 Registered Referred Karon casillas MD -[facility] Start: 09-22-2024 End: 09-22-2024 ambulatory Karon NOVAK Facility:[facility] Start: 09-18-2024 End: 09-18-[address] Monika Staley MD Work Phone: -[facility] Start: 09-18-2024 End: 09-18-2024 Departed Referred Karon Corrales MD -[facility] Start: 09-18-2024 Registered Referred Karon casillas MD -[facility] Start: 09-18-2024 End: 09-18-2024 ambulatory Karon Corrales OLS Facility:[facility] Start: 09-15-2024 End: 09-15-[address] Monika Staley MD Work Phone: [facility] Work Phone: Start: 09-15-2024 End: 09-15-2024 Departed Referred Carlos Cavazos -[facility] Start: 09-15-2024 Registered Referred Carlos Cavazos - [facility] Start: 09-15-2024 End: 09-15-2024 ambulatory Carlos Cavazos OLS Facility:[facility] Start: 09-11-2024 ambulatory Karon vidales OLS Facility:[facility] Start: 09-11-2024 Registered Referred Karon casillas MD -[facility] Start: 09-08-2024 End: 09-08-[address] Monika Staley MD Work Phone: [facility] Work Phone: Start: 09-08-2024 End: 09-08-2024 Departed Referred Karon Corrales MD -[facility] Start: 09-08-2024 Registered Referred Karon casillas MD -[facility] Start: 09-08-2024 End: 09-08-2024 ambulatory Karon NOVAK Facility:[facility] Start: 09-04-2024 End: 09-04-2024 Departed Referred Carlos Maribelsaros -[facility] Start: 09-04-2024 Registered Referred Carlos Maribelsaros - [facility] Start: 09-04-2024 End: 09-04-2024 ambulatory Carlos NOVAK Facility:[facility] Start: 09-01-2024 End: 09-01-[address] Monika Staley MD Work Phone: [facility] Work Phone: Start: 09-01-2024 End: 09-01-2024 Departed Referred Carlos Lópezsaros -[facility] Start: 09-01-2024 Registered Referred Carlos Maribelsaros - [facility] Start: 09-01-2024 End: 09-01-2024 ambulatory Carlos NOVAK Facility:[facility] Start: 08-28-2024 End: 08-28-[address] Monika Staley MD Work Phone: [facility] Work Phone: Start: 08-28-2024 End: 08-28-2024 Departed Referred Carlos Lópezsaros -[facility] Start: 08-28-2024 Registered Referred Carlos Lópezsaros - [facility] Start: 08-28-2024 End: 08-28-2024 ambulatory Carlos NOVAK Facility:[facility] Start: 08-25-2024 End: 08-25-[address] Monika Staley MD Work Phone: [facility] Work Phone: Start: 08-25-2024 End: 08-25-2024 Departed Referred Karno Corrales MD -[facility] Start: 08-25-2024 Registered Referred Karon casillas MD -[facility] Start: 08-25-2024 End: 08-25-2024 ambulatory Carlaamber Corrales OLS Facility:[facility] Start: 08-21-2024 End: 08-21-[address] Monika Staley MD Work Phone: [facility] Work Phone: Start: 08-21-2024 End: 08-21-2024 Departed Referred Karon Corrales MD -[facility] Start: 08-21-2024 Registered Referred Karon casillas MD -[facility] Start: 08-21-2024 End: 08-21-2024 ambulatory Carlaamber NOVAK Facility:[facility] Start: 08-18-2024 End: 08-18-[address] Monika Staley MD Work Phone: [facility] Work Phone: Start: 08-18-2024 End: 08-18-2024 Departed Referred Karon Corrales MD -[facility] Start: 08-18-2024 Registered Referred Karon casillas MD -[facility] Start: 08-18-2024 End: 08-18-2024 ambulatory Carlaamber Corrales OLS Facility:[facility] Start: 08-14-2024 End: 08-14-[address] Monika Staley MD Work Phone: [facility] Work Phone: Start: 08-14-2024 End: 08-14-2024 Departed Referred Karon Corrales MD -[facility] Start: 08-14-2024 Registered Referred Karon casillas MD -[facility] Start: 08-14-2024 End: 08-14-2024 ambulatory Karon NOVAK Facility:[facility] Start: 08-11-2024 End: 08-11-2024 Departed Referred Karon Corrales MD -[facility] Start: 08-11-2024 Registered Referred Karon casillas MD -[facility] Start: 08-11-2024 End: 08-11-2024 ambulatory Karon NOVAK Facility:[facility] Start: 08-07-2024 End: 08-07-2024 Departed Referred Carlos Lópezsaviri -[facility] Start: 08-07-2024 Registered Referred Carlos Lópezsaviri - [facility] Start: 08-07-2024 End: 08-07-2024 ambulatory Carlos Cavazos OLS Facility:[facility] Start: 08-04-2024 End: 08-04-[address] Monika Staley MD Work Phone: [facility] Work Phone: Start: 08-04-2024 End: 08-04-2024 Departed Referred Carlos Lópezsaviri -[facility] Start: 08-04-2024 Registered Referred Carlos Lópezsaros - [facility] Start: 08-04-2024 End: 08-04-2024 ambulatory Carlos NOVAK Facility:[facility] Start: 07-31-2024 End: 07-31-[address] Monika Staley MD Work Phone: [facility] Work Phone: Start: 07-31-2024 End: 07-31-2024 Departed Referred Karon Corrales MD -[facility] Start: 07-31-2024 Registered Referred Karon casillas MD -[facility] Start: 07-31-2024 End: 07-31-2024 ambulatory Karon NOVAK Facility:[facility] Start: 07-28-2024 End: 07-28-[address] Monika Staley MD Work Phone: [facility] Work Phone: Start: 07-28-2024 End: 07-28-2024 Departed Referred Karon Corrales MD -[facility] Start: 07-28-2024 Registered Referred Karon casillas MD -[facility] Start: 07-28-2024 End: 07-28-2024 ambulatory Karon NOVAK Facility:[facility] Start: 07-25-2024 End: 07-25-[address] Monika Staley MD Work Phone: [facility] Work Phone: Start: 07-25-2024 End: 07-25-2024 Departed Referred Carlos Cavazos -[facility] Start: 07-25-2024 Registered Referred Carlos Reeder [facility] Start: 07-24-2024 End: 07-25-[address] Monika Staley MD Work Phone: [facility] Work Phone: Start: 07-24-2024 End: 07-24-2024 Departed Referred Karon Corrales MD -[facility] Start: 07-24-2024 Registered Referred aKron casillas MD -[facility] Start: 07-24-2024 End: 07-24-2024 ambulatory Karon NOVAK Facility:[facility] Start: 07-21-2024 End: 07-21-[address] Monika Staley MD Work Phone: [facility] Work Phone: Start: 07-21-2024 End: 07-21-2024 Departed Referred Karon Corrales MD -[facility] Start: 07-21-2024 Registered Referred Karon casillas MD -[facility] Start: 07-21-2024 End: 07-21-2024 ambulatory Karon NOVAK Facility:[facility] Start: 07-17-2024 End: 07-17-[address] Monika Staley MD Work Phone: [facility] Work Phone: Start: 07-17-2024 End: 07-17-2024 Departed Referred Karon Corrales MD -[facility] Start: 07-17-2024 Registered Referred Karon casillas MD -[facility] Start: 07-17-2024 End: 07-17-2024 ambulatory Karon NOVAK Facility:[facility] Start: 07-14-2024 End: 07-14-[address] Monika Staley MD Work Phone: [facility] Work Phone: Start: 07-14-2024 End: 07-14-2024 Departed Referred Carlos Cavazos -[facility] Start: 07-14-2024 Registered Referred Carlos Lópezsaros - [facility] Start: 07-14-2024 End: 07-14-2024 ambulatory Carlos Cavazos OLS Facility:[facility] Start: 07-11-2024 End: 07-11-[address] Monika Staley MD Work Phone: [facility] Work Phone: Start: 07-11-2024 End: 07-11-2024 Departed Referred Carlos Lópezsaros -[facility] Start: 07-11-2024 Registered Referred Carlos Lópezsaros - [facility] Start: 07-11-2024 End: 07-11-2024 ambulatory Carlos Cavazos OLS Facility:[facility] Start: 07-07-2024 End: 07-07-[address] Monika Staley MD Work Phone: [facility] Work Phone: Start: 07-07-2024 End: 07-07-2024 Departed Referred Karon Corrales MD -[facility] Start: 07-07-2024 [facility] Start: 07-07-2024 End: 07-07-2024 ambulatory Karon NOVAK Facility:[facility] Start: 07-03-2024 End: 07-03-[address] Monika Staley MD Work Phone: [facility] Work Phone: Start: 07-03-2024 End: 07-03-2024 Departed Referred Kvng Crisostomo MD -[facility] Start: 07-03-2024 Registered Referred Kvng Crisostomo MD -[facility] Start: 07-03-2024 End: 07-03-2024 ambulatory Kvng NOVAK Facility:[facility] Start: 06-30-2024 End: 06-30-[address] Monika Staley MD Work Phone: [facility] Work Phone: Start: 06-30-2024 End: 06-30-2024 Departed Referred Kvng Crisostomo MD -[facility] Start: 06-30-2024 Registered Referred Kvng Crisostomo MD -[facility] Start: 06-30-2024 End: 06-30-2024 ambulatory Kvng NOVAK Facility:[facility] Start: 06-26-2024 ambulatory Kvng NOVAK Fac ility:[facility] Start: 06-26-2024 Registered Referred Kvng Crisostomo MD -[facility] Start: 06-23-2024 End: 06-23-[address] Monika Staley MD Work Phone: [facility] Work Phone: Start: 06-23-2024 End: 06-23-2024 Departed Referred Carlos [facility] Start: 06-23-2024 Registered Referred Carlos Cavazos - [facility] Start: 06-23-2024 End: 06-23-2024 ambulatory Carlos NOVAK Facility:[facility] Start: 06-19-2024 End: 06-19-[address] Monika Staley MD Work Phone: [facility] Work Phone: Start: 06-19-2024 End: 06-19-2024 Departed Referred Kvng Crisostomo MD -[facility] Start: 06-19-2024 Registered Referred Kvng Crisostomo MD -[facility] Start: 06-19-2024 End: 06-19-2024 ambulatory Monika Staley Facility:[facility] Start: 06-16-2024 End: 06-16-[address] Monika Staley MD Work Phone: [facility] Work Phone: Start: 06-16-2024 End: 06-16-2024 Departed Referred Kvng Crisostomo MD -[facility] Start: 06-16-2024 Registered Referred Kvng Crisostomo MD -[facility] Start: 06-16-2024 End: 06-16-2024 ambulatory Monika Staley Facility:[facility] Start: 06-12-2024 End: 06-12-[address] Monika Staley MD Work Phone: [facility] Work Phone: Start: 06-12-2024 End: 06-12-2024 Departed Referred Kvng Crisostomo MD -[facility] Start: 06-12-2024 Registered Referred Kvng Crisostomo MD -[facility] Start: 06-12-2024 End: 06-12-2024 ambulatory Kvng NOVAK Facility:[facility] Start: 06-09-2024 End: 06-09-[address] Monika Staley MD Work Phone: [facility] Work Phone: Start: 06-09-2024 End: 06-09-2024 Departed Referred Carlos Cavazos -[facility] Start: 06-09-2024 Registered Referred Carlos Cavazos - [facility] Start: 06-09-2024 End: 06-09-2024 ambulatory Monika Staley Facility:[facility] Start: 06-05-2024 End: 06-05-[address] Monika Staley MD Work Phone: [facility] Work Phone: Start: 06-05-2024 End: 06-05-2024 Departed Referred Kvng Crisostomo MD -[facility] Start: 06-05-2024 End: 06-05-2024 ambulatory Kvng NOVAK Facility:[facility] Start: 06-02-2024 End: 06-02-[address] Monika Staley MD Work Phone: [facility] Work Phone: Start: 06-02-2024 End: 06-02-2024 Departed Referred Kvng Crisostomo MD -[facility] Start: 06-02-2024 Registered Referred Kvng Crisostomo MD -[facility] Start: 06-02-2024 End: 06-02-2024 ambulatory Kvng NOVAK Facility:[facility] Start: 05-29-2024 End: 05-29-[address] Monika Staley MD Work Phone: [facility] Work Phone: Start: 05-29-2024 End: 05-29-2024 Departed Referred Kvng Crisostomo MD -[facility] Start: 05-29-2024 Registered Referred Kvng Crisostomo MD -[facility] Start: 05-29-2024 End: 05-29-2024 ambulatory Kvng NOVAK Facility:[facility] Start: 05-26-2024 End: 05-26-[address] Monika Staley MD Work Phone: [facility] Work Phone: Start: 05-26-2024 End: 05-26-2024 Departed Referred Carlos Cavazos -[facility] Start: 05-26-2024 Registered Referred Carlos Cavazos - [facility] Start: 05-26-2024 End: 05-26-2024 ambulatory Carlos NOVAK Facility:[facility] Start: 05-22-2024 ambulatory Kvng NOVAK Fac ility:[facility] Start: 05-22-2024 [facility] Start: 05-20-2024 End: 05-20-2024 Departed Referred [facility] Start: 05-19-2024 End: 05-20-2024 ambulatory Kvng NOVAK Facility:[facility] Start: 05-19-2024 [facility] Start: 05-15-2024 End: 05-15-2024 Departed Referred [facility] Start: 05-15-2024 End: 05-15-2024 ambulatory Kvng NOVAK Facility:[facility] Start: 05-12-2024 End: 05-12-2024 [facility] Start: 05-12-2024 End: 05-12-2024 ambulatory Carlos NOVAK Facility:[facility] Start: 05-09-2024 End: 05-09-2024 [facility]ed [facility] Start: 05-09-2024 End: 05-09-2024 ambulatory Kvng NOVAK Facility:[facility] Start: 05-08-2024 End: 05-08-2024 Departed Referred Babbaljeet Crisostomo MD -[facility] Start: 05-08-2024 End: 05-08-2024 ambulatory Elizabethmilton Andressa NOVAK Facility:[facility] Start: 05-05-2024 End: 05-05-2024 Departed Referred Kvng Crisostomo MD -[facility] Start: 05-05-2024 End: 05-05-2024 ambulatory Kvng NOVAK Facility:[facility] Start: 05-01-2024 End: 05-01-2024 Departed Referred Kvng Crisostomo MD -[facility] Start: 05-01-2024 End: 05-01-2024 ambulatory Kvng NOVAK Facility:[facility] Start: 04-28-2024 End: 04-28-2024 Departed Referred Carlos Cavazos -[facility] Start: 04-28-2024 End: 04-28-2024 ambulatory Carlos NOVAK Facility:[facility] Start: 04-24-2024 End: 04-24-2024 Departed Referred Kvng Crisostomo MD -[facility] Start: 04-24-2024 End: 04-24-2024 ambulatory Vicentesigifredokarolmilton Andressa NOVAK Facility:[facility] Start: 04-21-2024 End: 04-21-2024 Departed Referred Carlos Cavazos -[facility] Start: 04-21-2024 End: 04-21-2024 ambulatory Carlos NOVAK Facility:[facility] Start: 04-17-2024 ambulatory Vicenterocio Andressa NOVAK Fac ility:[facility] Start: 04-17-2024 Registered Referred Kvng Crisostomo MD -[facility] Start: 04-14-2024 ambulatory Vicenterocio Andressa NOVAK Fac ility:[facility] Start: 04-14-2024 Registered Referred Kvng Crisostomo MD -[facility] Start: 04-10-2024 End: 04-10-2024 Departed Referred Kvng Crisostomo MD -[facility] Start: 04-10-2024 End: 04-10-2024 ambulatory Kvng Jonesur OLS Facility:[facility] Start: 04-07-2024 End: 04-07-2024 Departed Referred Carlos Cavazos -[facility] Start: 04-07-2024 End: 04-07-2024 ambulatory Carlos NOVAK Facility:[facility] Start: 04-04-2024 ambulatory Avisgerson Andressa NOVAK Fac ility:[facility] Start: 04-04-2024 Registered Referred Kvng Crisostomo MD -[facility] Start: 03-31-2024 End: 03-31-2024 Departed Referred Carlos Cavazos -[facility] Start: 03-31-2024 End: 03-31-2024 ambulatory Carlos NOVAK Facility:[facility] Start: 03-27-2024 End: 03-27-2024 Departed Referred [facility] Start: 03-27-2024 End: 03-27-2024 ambulatory [facility] Facility:[facility] Start: 03-24-2024 End: 03-24-2024 Departed Referred Kvng Crisostomo MD -[facility] Start: 03-24-2024 End: 03-24-2024 ambulatory Kvng NOVAK Facility:[facility] Start: 03-20-2024 End: 03-20-2024 Departed Referred [facility] Start: 03-20-2024 End: 03-20-2024 ambulatory [facility] Facility:[facility] Start: 03-19-2024 End: 03-19-2024 Departed Referred Kvng Crisostomo MD -[facility] Start: 03-19-2024 End: 03-19-2024 ambulatory Kvng NOVAK Facility:[facility] Start: 03-18-2024 End: 03-18-2024 Departed Referred [facility] Start: 03-17-2024 End: 03-17-2024 Departed Referred [facility] Start: 03-14-2024 End: 03-14-2024 Departed Referred Carlos Cavazos [facility] Start: 03-13-2024 End: 03-13-2024 Departed Referred [facility] Start: 09-13-2023 End: 09-13-[address] [facility] Start: 09-13-2023 End: 09-13-2023 Office outpatient visit 25 minutes Rebecca Buck MD Work Phone: [facility] Comment on above: Left flank pain (Christina magui Dx); BPH with urinary obstruction; History of kidney stones Start: 09-06-2023 End: 09-07-[address] [facility] Start: 09-06-2023 End: 09-06-2023 Subsequent hospital visit by physician Rebecca Buck MD Work Phone: [facility] Imaging Comment on above: Left flank pain; Calculus of ureter Start: 08-31-2023 [facility] Start: 08-31-2023 [facility] Start: 08-21-2023 Telephone encounter Rebecca Buck MD Work Phone: [facility] Clinical Communication Comment on above: CT appt Boaz advice Start: 08-21-2023 Registered Referred [facility] Start: 08-13-2023 End: 08-13-[address] [facility] Start: 08-13-2023 End: 08-13-2023 Office outpatient new 45 minutes Rebecca Buck MD Work Phone: [facility] Comment on above: Left flank pain (Christina magui Dx); Calculus of ureter; Disease of prostate; BPH with urinary obstruction Start: 08-03-2023 End: 08-03-2023 ambulatory [facility] Work Phone: Start: 08-03-2023 End: 08-03-2023 Departed Referred [facility] Start: 07-20-2023 End: 07-20-2023 ambulatory [facility] Work Phone: Start: 07-20-2023 End: 07-20-2023 Departed Referred [facility] Start: 07-20-2023 Registered Referred [facility] Start: 07-18-2023 End: 07-18-2023 ambulatory [facility] Work Phone: Start: 07-18-2023 End: 07-18-2023 [facility] Start: 07-18-2023 [facility] Start: 07-16-2023 End: 07-16-2023 ambulatory [facility] Work Phone: Start: 07-16-2023 End: 07-16-2023 [facility] Start: 07-16-2023 Registered Referred [facility] Start: 07-13-2023 End: 07-13-2023 ambulatory [facility] Work Phone: Start: 07-13-2023 End: 07-13-2023 [facility] Start: 07-13-2023 Registered Referred [facility] Start: 07-12-2023 End: 07-12-2023 ambulatory [facility] Work Phone: Start: 07-12-2023 End: 07-12-2023 [facility] Start: 07-12-2023 Registered Referred [facility] Start: 07-05-2023 End: 07-05-2023 ambulatory [facility] Work Phone: Start: 07-05-2023 End: 07-05-2023 [facility] Start: 07-05-2023 [facility] Start: 07-02-2023 [facility] Start: 06-28-2023 End: 06-28-2023 ambulatory [facility] Work Phone: Start: 06-28-2023 End: 06-28-2023 [facility] Start: 06-28-2023 [facility] Start: 06-25-2023 Telephone encounter Rebecca Buck MD Work Phone: [facility] Start: 06-25-2023 End: 06-25-2023 ambulatory [facility] Work Phone: Start: 06-25-2023 End: 06-25-2023 [facility] Start: 06-25-2023 [facility] Start: 06-21-2023 End: 06-21-2023 ambulatory [facility] Work Phone: Start: 06-21-2023 End: 06-21-2023 [facility] Start: 06-21-2023 [facility] Start: 06-13-2023 End: 06-13-2023 ambulatory [facility] Work Phone: Start: 06-13-2023 End: 06-13-2023 [facility] Start: 06-06-2023 End: 06-06-2023 ambulatory [facility] Work Phone: Start: 06-06-2023 End: 06-06-2023 [facility] Start: 06-06-2023 [facility] Start: 05-23-2023 End: 05-23-2023 ambulatory [facility] Work Phone: Start: 05-23-2023 End: 05-23-2023 [facility] Start: 05-09-2023 End: 05-09-2023 [facility] Start: 05-09-2023 [facility] Start: 04-23-2023 End: 04-23-2023 [facility] Start: 04-09-2023 End: 04-09-2023 ambulatory [facility] Work Phone: Start: 04-09-2023 End: 04-09-2023 [facility] Start: 04-09-2023 [facility] Start: 04-02-2023 End: 04-02-2023 ambulatory [facility] Work Phone: Start: 04-02-2023 End: 04-02-2023 [facility] Start: 04-02-2023 [facility] Start: 03-26-2023 End: 03-26-2023 ambulatory [facility] Work Phone: Start: 03-26-2023 End: 03-26-2023 [facility] Start: 03-26-2023 [facility] Start: 03-22-2023 End: 03-22-2023 ambulatory [facility] Work Phone: Start: 03-22-2023 End: 03-22-2023 [facility] Start: 03-22-2023 [facility] Start: 03-08-2023 End: 03-08-2023 ambulatory [facility] Work Phone: Start: 03-08-2023 End: 03-08-2023 Departed Referred [facility] Start: 02-22-2023 End: 02-22-2023 ambulatory [facility] Work Phone: Start: 02-22-2023 End: 02-22-2023 Departed Referred [facility] Start: 02-22-2023 Registered Referred [facility] Start: 02-15-2023 End: 02-15-2023 ambulatory [facility] Work Phone: Start: 02-15-2023 End: 02-15-2023 Departed Referred [facility] Start: 02-15-2023 Registered Referred [facility] Start: 02-08-2023 End: 02-08-2023 ambulatory [facility] Work Phone: Start: 02-08-2023 End: 02-08-2023 Departed Referred [facility] Start: 01-31-2023 End: 01-31-2023 ambulatory [facility] Work Phone: Start: 01-31-2023 End: 01-31-2023 Departed Referred [facility] Start: 01-31-2023 Registered Referred [facility] Start: 01-29-2023 End: 01-29-2023 Departed Referred [facility] Start: 01-29-2023 Registered Referred [facility] Start: 01-26-2023 End: 01-26-2023 Departed Referred [facility] Start: 01-26-2023 Registered Referred [facility] Start: 01-24-2023 End: 01-24-2023 Departed Referred [facility] Start: 01-24-2023 Registered Referred [facility] Start: 01-22-2023 End: 01-22-2023 ambulatory [facility] Work Phone: Start: 01-22-2023 End: 01-22-2023 [facility] Start: 01-22-2023 [facility] Start: 01-10-2023 End: 01-10-2023 ambulatory [facility] Work Phone: Start: 01-10-2023 End: 01-10-2023 [facility] Start: 01-10-2023 [facility] Start: 12-27-2022 End: 12-27-2022 ambulatory [facility] Work Phone: Start: 12-27-2022 End: 12-27-2022 [facility] Start: 12-27-2022 [facility] Start: 12-21-2022 End: 12-21-2022 ambulatory [facility] Work Phone: Start: 12-21-2022 End: 12-21-2022 [facility] Start: 12-21-2022 [facility] Start: 12-14-2022 End: 12-14-2022 ambulatory [facility] Work Phone: Start: 12-14-2022 End: 12-14-2022 [facility] Start: 12-14-2022 [facility] Start: 12-07-2022 End: 12-07-2022 ambulatory [facility] Work Phone: Start: 12-07-2022 End: 12-07-2022 [facility] Start: 12-07-2022 [facility] Start: 11-24-2022 End: 11-24-2022 ambulatory [facility] Work Phone: Start: 11-24-2022 End: 11-24-2022 Departed Referred [facility] Start: 11-24-2022 [facility] Start: 11-23-2022 End: 11-23-2022 ambulatory [facility] Work Phone: Start: 11-23-2022 End: 11-23-2022 [facility] Start: 11-23-2022 [facility] Start: 11-22-2022 End: 11-22-2022 ambulatory [facility] Work Phone: Start: 11-22-2022 End: 11-22-2022 [facility] Start: 11-22-2022 [facility] Start: 11-09-2022 End: 11-09-2022 ambulatory [facility] Work Phone: Start: 11-09-2022 End: 11-09-2022 [facility] Start: 11-09-2022 [facility] Start: 10-26-2022 End: 10-26-2022 Departed Referred [facility] Start: 10-26-2022 [facility] Start: 10-12-2022 End: 10-12-2022 ambulatory [facility] Work Phone: Start: 10-12-2022 End: 10-12-2022 [facility] Start: 10-12-2022 [facility] Start: 10-05-2022 End: 10-05-2022 [facility] Start: 10-05-2022 Registered Referred [facility] Start: 09-28-2022 End: 09-28-2022 ambulatory [facility] Work Phone: Start: 09-28-2022 End: 09-28-2022 [facility] Start: 09-14-2022 End: 09-14-2022 [facility] Start: 08-31-2022 End: 08-31-2022 [facility] Start: 08-31-2022 [facility] Start: 08-23-2022 End: 08-23-2022 ambulatory [facility] Work Phone: Start: 08-23-2022 End: 08-23-2022 [facility] Start: 08-23-2022 [facility] Start: 08-17-2022 End: 08-17-2022 ambulatory [facility] Work Phone: Start: 08-17-2022 End: 08-17-2022 [facility] Start: 08-17-2022 Registered Referred [facility] [employer] Start: 08-14-2022 End: 08-14-2022 ambulatory [facility] Work Phone: Start: 08-14-2022 End: 08-14-2022 [facility] Start: 08-14-2022 [facility] Start: 07-31-2022 End: 07-31-2022 ambulatory [facility] Work Phone: Start: 07-31-2022 End: 07-31-2022 Departed Referred [facility] Start: 07-31-2022 Registered Referred [facility] Start: 07-24-2022 End: 07-24-2022 ambulatory [facility] Work Phone: Start: 07-24-2022 End: 07-24-2022 Departed Referred [facility] Start: 07-24-2022 Registered Referred [facility] Start: 07-20-2022 End: 07-20-2022 [facility] Start: 07-20-2022 [facility] Start: 07-17-2022 End: 07-17-2022 [facility] Start: 07-17-2022 Registered Referred [facility] Start: 07-11-2022 Registered Referred [facility] Start: 07-10-2022 End: 07-10-2022 ambulatory [facility] Work Phone: Start: 07-10-2022 End: 07-10-2022 Departed Referred [facility] Start: 07-10-2022 Registered Referred [facility] Start: 07-03-2022 End: 07-03-2022 ambulatory [facility] Work Phone: Start: 07-03-2022 End: 07-03-2022 [facility] Start: 07-03-2022 [facility] Start: 06-27-2022 End: 06-27-2022 ambulatory [facility] Work Phone: Start: 06-27-2022 End: 06-27-2022 [facility] Start: 06-27-2022 [facility] Start: 06-13-2022 End: 06-13-2022 ambulatory [facility] Work Phone: Start: 06-13-2022 End: 06-13-2022 [facility] Start: 06-13-2022 [facility] Start: 06-06-2022 End: 06-06-2022 ambulatory [facility] Work Phone: Start: 06-06-2022 End: 06-06-2022 [facility] Start: 06-06-2022 [facility] Start: 05-30-2022 End: 05-30-2022 ambulatory [facility] Work Phone: Start: 05-30-2022 End: 05-30-2022 [facility] Start: 05-30-2022 [facility] Start: 05-16-2022 End: 05-16-2022 ambulatory [facility] Work Phone: Start: 05-16-2022 End: 05-16-2022 [facility] Start: 05-16-2022 [facility] Start: 05-02-2022 End: 05-02-2022 ambulatory [facility] Work Phone: Start: 05-02-2022 End: 05-02-2022 [facility] Start: 05-02-2022 [facility] Start: 04-27-2022 End: 04-27-2022 ambulatory [facility] Work Phone: Start: 04-27-2022 End: 04-27-2022 Departed Referred [facility] Start: 04-27-2022 Registered Referred [facility] Start: 04-26-2022 End: 04-26-2022 ambulatory [facility] Work Phone: Start: 04-26-2022 End: 04-26-2022 Departed Referred [facility] Start: 04-11-2022 End: 04-11-2022 ambulatory [facility] Work Phone: Start: 04-11-2022 End: 04-11-2022 Departed Referred [facility] Start: 03-28-2022 End: 03-28-2022 Departed Referred [facility] Start: 03-28-2022 Registered Referred [facility] Start: 03-23-2022 End: 03-23-2022 Departed Referred [facility] Start: 03-23-2022 Registered Referred [facility] Start: 03-16-2022 End: 03-16-2022 ambulatory [facility] Work Phone: Start: 03-16-2022 End: 03-16-2022 Departed Referred [facility] Start: 03-16-2022 Registered Referred [facility] Start: 03-09-2022 End: 03-09-2022 ambulatory [facility] Work Phone: Start: 03-09-2022 End: 03-09-2022 [facility] Start: 03-09-2022 Registered Referred [facility] Start: 03-06-2022 End: 03-06-2022 ambulatory [facility] Work Phone: Start: 03-06-2022 End: 03-06-2022 [facility] Start: 03-06-2022 [facility] Start: 03-02-2022 End: 03-03-2022 Emergency department patient visit UNKNOWN PROVIDER [facility] Start: 03-02-2022 End: 03-02-2022 Emergency department patient visit Lanette Munguia DO Work Phone: [facility] Emergency Dept Comment on above: Fall, initial encoun ter (Primary Dx); Anticoagulated Start: 02-20-2022 End: 02-20-2022 Departed Referred [facility] Start: 02-20-2022 Registered Referred [facility] Start: 02-13-2022 End: 02-13-2022 ambulatory [facility] Work Phone: Start: 02-13-2022 End: 02-13-2022 Departed Referred [facility] Start: 02-13-2022 [facility] Start: 02-06-2022 End: 02-06-2022 ambulatory [facility] Work Phone: Start: 02-06-2022 End: 02-06-2022 [facility] Start: 02-06-2022 [facility] Start: 01-30-2022 End: 01-30-2022 [facility] Start: 01-30-2022 [facility] Start: 01-26-2022 End: 01-26-2022 ambulatory [facility] Work Phone: Start: 01-26-2022 End: 01-26-2022 [facility] Start: 01-26-2022 [facility] Start: 01-19-2022 End: 01-19-2022 ambulatory [facility] Work Phone: Start: 01-19-2022 End: 01-19-2022 [facility] Start: 01-19-2022 [facility] Start: 01-17-2022 ambulatory [facility] Start: 01-10-2022 [facility] Start: 01-10-2022 End: 01-10-2022 ambulatory [facility] Work Phone: Start: 01-10-2022 End: 01-10-2022 [facility] Start: 01-10-2022 [facility] Start: 01-06-2022 AUDIT Monika Elias rt Work Phone: [facility] Work Phone: Start: 01-05-2022 End: 01-05-2022 [facility] Start: 01-05-2022 [facility] Start: 12-30-2021 End: 12-30-2021 Departed [facility] [facility] Start: 12-30-2021 [facility]istered [facility] Start: 12-28-2021 End: 12-28-2021 ambulatory [facility] Work Phone: Start: 12-28-2021 End: 12-28-2021 [facility]ed [facility] Start: 12-28-2021 [facility] Start: 12-26-2021 End: 12-26-2021 ambulatory [facility] Work Phone: Start: 12-26-2021 End: 12-26-2021 [facility]ed [facility] Start: 12-26-2021 Registered Referred [facility] Start: 12-22-2021 End: 12-22-2021 ambulatory [facility] Work Phone: Start: 12-22-2021 End: 12-22-2021 Departed Ref[facility] Start: 12-22-2021 Registered Referred [facility] Start: 12-22-2021 End: 12-22-2021 [facility] Start: 12-21-2021 End: 12-22-2021 Emergency department patient visit Sharon Olivia MD Work Phone: [facility] Emergency Dept Comment on above: Heel ulceration, lef t, with unspecified severity (HCC) (Primary Dx) Start: 12-19-2021 End: 12-19-2021 ambulatory [facility] Work Phone: Start: 12-19-2021 End: 12-19-2021 Departed Referred [facility] Start: 12-19-2021 Registered Referred [facility] Start: 12-12-2021 End: 12-12-2021 ambulatory [facility] Work Phone: Start: 12-12-2021 End: 12-12-2021 Departed Referred [facility] Start: 12-12-2021 Registered Referred [facility] Kathy [facility] Start: 12-08-2021 End: 12-08-2021 ambulatory [facility] Work Phone: Start: 12-08-2021 End: 12-08-2021 Departed Ref[facility] Start: 12-08-2021 Registered Referred [facility] Start: 12-05-2021 End: 12-05-2021 ambulatory [facility] Work Phone: Start: 12-05-2021 End: 12-05-2021 [facility]ed [facility] Start: 12-05-2021 [facility] Start: 12-01-2021 End: 12-01-2021 [facility]ed [facility] Start: 12-01-2021 [facility] Start: 11-28-2021 End: 11-28-2021 [facility]ed [facility] Start: 11-28-2021 [facility]istered [facility] Start: 11-25-2021 Rx Renewal Monika Elias rt Work Phone: [facility] Work Phone: Start: 11-23-2021 End: 11-23-2021 [facility]ed [facility] [employer] [facility] Start: 11-23-2021 [facility] Start: 11-22-2021 End: 11-22-2021 [facility]ed [facility] Start: 11-22-2021 [facility]istered [facility] [facility] Start: 11-21-2021 End: 11-21-2021 [facility]ed [facility] Start: 11-15-2021 AUDIT Monika Elias rt Work Phone: [facility] Work Phone: Start: 11-14-2021 End: 11-14-2021 [facility]ed [facility] Start: 11-14-2021 [facility] Start: 11-08-2021 End: 11-08-2021 [facility]ed [facility] Start: 11-08-2021 Registered [facility] Start: 11-04-2021 End: 11-04-2021 Departed [facility] Start: 11-04-2021 Registered Ref[facility] Start: 10-31-2021 End: 11-01-2021 Emergency department patient visit UNKNOWN PROVIDER [facility] Start: 10-31-2021 End: 11-01-2021 Emergency department patient visit Dante Kim MD Work Phone: [facility] Emergency Dept Comment on above: Other fatigue (Prima ry Dx) Start: 10-31-2021 End: 10-31-2021 Departed Referred [facility] Start: 10-21-2021 End: 10-29-2021 Evaluation and management of inpatient UNKNOWN PROVIDER [facility] Start: 10-21-2021 End: 10-29-2021 Evaluation and management of inpatient Lisa Michelle DO Work Phone: [facility] Comment on above: Leg swelling (Primar y Dx); Acute deep vein thrombosis (DVT) of proximal vein of lower extremity, unspecified laterality (HCC) Start: 10-20-2021 End: 10-20-2021 Departed Ref[facility] Start: 10-17-2021 Telephone encounter Nicole davis MD Work Phone: [facility] Comment on above: Missed Appointment Start: 09-19-2021 End: 09-19-2021 Departed [facility] Start: 11-02-2020 AUDIT Monika Elias rt Work Phone: [facility] Work Phone: Start: 10-27-2020 AUDIT Monika Elias rt Work Phone: [facility] Work Phone: Start: 07-13-2020 Patient encounter procedure Monika Staley [facility] Work Phone: Start: 04-13-2020 Patient encounter procedure Wing Ritter [facility] Work Phone: Start: 04-07-2020 Patient encounter procedure Wing Ritter [facility] Work Phone: Start: 03-18-2020 Patient encounter procedure Wing Ritter [facility] Work Phone: Start: 01-20-2020 Patient encounter procedure Monika Staley MD OD-Thpiwkdtyj-Kyrfy Work Phone: Start: 11-13-2019 End: 11-13-2019 Subsequent hospital visit by physician [facility] Comment on above: Non-pressure chronic ulcer left lower leg, 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] Start: 11-06-2019 Patient encounter procedure Monika Staley MD HI-Lsppxxofwq-Wxkbu Work Phone: Start: 06-18-2019 End: 06-18-2019 Subsequent [...] Start: 10-26-2021 Electroencephalogram w/rec awake&asleep Sarina Pineda [employer] 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 Work Phone: Start: 10-26-2021 Ct head/brain w/o co ntrast material Sarina Pineda [employer] 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 Work Phone: Start: 10-26-2021 Prothrombin time Andres Sheridan MD Work Phone: Start: 10-25-2021 Speech and language therapy regime Sarina Pineda [employer] 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 Work Phone: Start: 10-25-2021 Prothrombin time Andres [...] count reticulo cyte automated Ellen Massey Niesha [employer] 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 Work Phone: Start: 10-21-2021 C-reactive protein Jax Scherer [employer] 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 Work Phone: Start: 10-21-2021 Non-invas physiologi c std extremity art 2 level Shruthi Malik [employer] 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 Work Phone: Start: 10-21-2021 Radex calcaneus mini mum 2 views Shruthi Malik [employer] 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 Work Phone: Start: 10-21-2021 Dup-scan xtr veins [...] Comment: Speci men Type: BLOOD SPECIMENOrdering Facility: [facility] Address: [address] [place] [address] Performed By: #### T SCR ####[facility] BLOOD BANKCLIA [id number] [address] Start: 08-04-2021 Antibody screen Comment on above: Order Comment: Speci men Type: BLOOD SPECIMENOrdering Facility: [facility] Address: [address] [place] [address] Performed By: #### T SCR ####[facility] BLOOD BANKCLIA [id number] [address] Start: 08-01-2021 Antibody screen Comment on above: Order Comment: Speci men Type: BLOOD SPECIMENOrdering Facility: [facility] Address: [facility] [place] [address] Performed By: #### T SCR ####[facility] BLOOD BANKCLIA [id number] [place] [address] [facility] Start: 06-07-2021 Antibody screen Comment on above: Order Comment: Speci men Type: BLOOD SPECIMEN Performed By: #### T SCR ####[facility] BLOOD BANKCLIA [id number] [place] [address] [facility] Start: 09-02-2020 Lipid 1996 panel [...] History of Interrupt ion Inferior Vena Cava Tatum Filter Placement Monika Staley Urine culture Plan of Treatment Date Care Activity Detail Author Start: 09-22-2026 DTaP/Tdap/Td vaccine (2 - Td or Tdap) DTaP/Tdap/Td vaccine (2 - Td or Tdap) [facility] Start: 09-22-2026 DTaP/Tdap/Td vaccine (2 - Td) DTaP/Tdap/Td vaccine (2 - Td) [facility] Work Phone: Start: 09-22-2026 DTaP/Tdap/Td Vaccine s (2 - Td or Tdap) DTaP/Tdap/Td Vaccines (2 - Td or Tdap) [facility] Start: 09-02-2025 Lipid panel Lipid Panel [facility] Start: 03-02-2025 Registered Referred Registered Refer red [facility] Start: 02-26-2025 Registered Referred Registered Refer red -[facility] Start: 02-23-2025 Registered Referred Registered Refer red -[facility] Start: 02-19-2025 Registered Referred Registered Refer red -[facility] Start: 02-16-2025 Registered Referred Registered Refer red -[facility] Start: 08-22-2024 DIABETES SCREEN DIABETES SCREEN [facility] Start: 12-04-2023 Lipid panel Lipids [facility] Start: 12-04-2023 Lipid screen Lipid screen [facility] Work Phone: Start: 09-13-2023 End: 09-13-2023 Patient encounter procedure 09/13/2023 11:30 AM EDT Office Visit [facility] [address] [place] [phone] Rebecca Buck MD [address] [facility] [facility] [address] [place], [place] [id number] [facility] Start: 08-31-2023 End: 08-31-2023 Patient encounter procedure 08/31/2023 9:30 AM EDT Appointment [facility] [address] [place] [phone] Rebecca Buck MD [address] [facility] [address] [place] [address] [facility] [address] [facility] Start: 08-13-2023 End: 08-12-2024 Basic metabolic 1998 panel - Serum or Plasma Basic metabolic panel Lab Routine Calculus of ureter Expected: 08/13/2023 (Approximate), Expires: 08/12/2024 [facility] Comment on above: Expected: 08/13/2023 (Approximate), Expires: 08/12/2024 Start: 08-13-2023 End: 08-12-2024 CT Abdomen WO contrast CT abdomen pelvis wo IV contrast Imaging Routine Left flank pain Calculus of ureter Expected: 08/13/2023, Expires: 08/12/2024 [facility] Comment on above: Expected: 08/13/2023 , Expires: 08/12/2024 Start: 08-13-2023 End: 02-12-2024 PSA, Monitoring ([facility]) PSA, Monitoring ([facility]) Lab Routine Disease of prostate Expected: 08/13/2023 (Approximate), Expires: 02/12/2024 [facility] Work Phone: Comment on above: Expected: 08/13/2023 (Approximate), Expires: 02/12/2024 Start: 08-13-2023 End: 08-13-2023 Patient encounter procedure 08/13/2023 10:00 AM EDT Office Visit [facility] [address] [place] [phone] Rebecca Buck MD [address] [place] [address] [facility] Start: 07-17-2023 Bacteria identified in Urine by Culture [facility] Start: 07-17-2023 [facility] Start: 07-16-2023 Measurement of substance [facility] Start: 05-07-2023 Medicare Advantage A nnual Wellness Visit Medicare Advantage Annual Wellness Visit [facility] Start: 03-02-2023 Creatinine measurement Creatinine Le carmela [facility] Start: 03-02-2023 Potassium measurement Potassium Leve l [facility] Start: 08-22-2022 Diabetes mellitus screening Diabetes Screening [facility] Start: 01-05-2022 Influenza vaccination S [facility] Start: 12-23-2021 EPV, Provider: Wing Ritter, Status: Pen, Time: 9:30 AM EPV, Provider: Wing Ritter, Status: Pen, Time: 9:30 AM LR-Axwqvcszyf-Xtf ma Work Phone: Start: 12-05-2021 Influenza vaccination Flu vaccine (# 1) [facility] Start: 12-05-2021 Blood chemistry [facility] Work Phone: Start: 12-05-2021 Complete blood count [facility] Work Phone: Start: 12-05-2021 [facility] Work Phone: Start: 12-01-2021 [facility] Work Phone: Start: 08-05-2021 COVID-19 VACCINE (4 - Booster for Moderna series) COVID-19 VACCINE (4 - Booster for Moderna series) [facility] Start: 08-05-2021 COVID-19 Vaccine (4 - Booster for Pfizer series) COVID-19 Vaccine (4 - Booster for Pfizer series) [facility] Start: 06-01-2021 COVID-19 Vaccine (4 - Booster for Pfizer series) COVID-19 Vaccine (4 - Booster for Pfizer series) [facility] Start: 05-07-2021 ADVANCE DIRECTIVE DISCUSSION ADVANCE DIRECTIVE DISCUSSION [facility] Start: 08-11-2020 Screening for malign ant neoplasm of colon [facility] Start: 07-30-2020 Screening for malign ant neoplasm of colon [facility] Start: 01-20-2020 Echocardiography Echocardiogram MP-[facility] [address] [place] Work Phone: Start: 01-06-2020 Influenza vaccination INFLUENZA (#1) [facility] Start: 12-04-2019 Annual Wellness Visi t (AWV) Annual Wellness Visit (AWV) [facility] Start: 12-04-2019 Creatinine monitoring Creatinine mon itoring [facility] Work Phone: Start: 12-04-2019 Hepatitis C screen Hepatitis C scree n [facility] Work Phone: Comment on above: Postponed from 05/06 (Patient Refused) Start: 12-04-2019 Potassium monitoring Potassium monit oring [facility] Work Phone: Start: 12-04-2019 Prostate specific an tigen measurement Prostate Specific Antigen (PSA) Screening or Monitoring [facility] Start: 12-04-2019 Shingles Vaccine (1 of 2) Day gles Vaccine (1 of 2) [facility] Work Phone: Comment on above: Postponed from 05/06 (Patient Refused) Start: 06-07-2019 Colon Cancer Screen FIT/FOBT [facility] Work Phone: Start: 08-14-2017 LIPID SCREEN LIPID SCREEN [facility] Start: 2017 ADVANCE DIRECTIVE DISCUSSION ADVANCE DIRECTIVE DISCUSSION [facility] Start: 2017 PNEUMOCOCCAL: 65+ (1 - PCV) PNEUMOCOCCAL: 65+ (1 - PCV) [facility] Start: 2017 PNEUMOVAX AGE 65 AND OVER WITH 5YR LOOKBACK (#1) PNEUMOVAX AGE 65 AND OVER WITH 5YR LOOKBACK (#1) [facility] Start: 04-14-2016 DIABETES SCREEN DIABETES SCREEN [facility] Start: 2012 RSV Immunization age d 60 or older (1 - 1-dose 60+ series) RSV Immunization aged 60 or older (1 - 1-dose 60+ series) [facility] Start: 2007 PROSTATE CANCER SCRE ENING DISCUSSION PROSTATE CANCER SCREENING DISCUSSION [facility] Start: 2002 Shingles vaccine (1 of 2) Day gles vaccine (1 of 2) [facility] Start: 2002 SHINGRIX VACCINE (1 of 2) DAY GRIX VACCINE (1 of 2) [facility] Start: 2002 Tuberculosis screening COLOREC MONIQUE CANCER SCREENING,SEE MODIFIER [facility] Start: 2002 Zoster Vaccines (1 of 2) Zoste r Vaccines (1 of 2) [facility] Start: 1997 COLOGUARD (FIT-DNA) COLOGUARD (FIT-D NA) [facility] Start: 1997 [address] [facility] Start: 1997 COLORECTAL CANCER SCREENING COLORECTAL CANCER SCREENING [facility] Start: [address] COLONOGRAPHY [facility] Start: 1997 FECAL OCCULT BLOOD FECAL OCCULT BLOO D [facility] Start: 1997 Screening for malign ant neoplasm of colon [facility] Start: 1997 SIGMOIDOSCOPY SIGMOIDOSCOPY [facility] Start: 1987 Diabetes screen Diabetes screen [facility] Start: 1971 Urine microalbumin profile DTAP,TDAP,TD (1 - Tdap) [facility] Start: 1970 ANNUAL PCP TEAM SURGICAL CLINICAL REVIEWER KEESHA DISEASE VISIT ANNUAL PCP TEAM CHRONIC DISEASE VISIT [facility] Start: 1970 BP CONTROLLED (<130/80) BP CONTROLLE D (<130/80) [facility] Start: 1970 Diabetes mellitus screening Diabetes Screening [facility] Start: 1970 HEPATITIS C SCREENING HEPATITIS C JOBY VILLARREAL [facility] Start: 1970 Hepatitis C screening S [facility] Start: 1964 Adult depression screening assessment DEPRESSION SCREENING [facility] Start: 1964 Depression Screen [facility] Start: 1962 Diabetic foot examination Diabetes: Foot Exam [facility] Start: 1962 Glaucoma screening Diabetes: R etinopathy Screening [facility] Start: 1962 Preventive dental service Diabetes: Dental Exam [facility] Start: 1952 Echocardiography Echocardiogram [facility] Start: 1952 Hemoglobin A1c measurement Diabetes: Hemoglobin A1C [facility] Start: 1952 Lipid panel Lipid Panel [facility] Start: 1952 Screening for malign ant neoplasm of colon [facility] Bacteria identified in Urine by Culture Urine Culture [facility] Work Phone: End: 03-02-2022 CBC W Auto Differential panel - Blood CBC with Auto Differential Lab Routine One Time for 1 Occurrences starting 03/02/2022 until 03/02/2022 [facility]: Comment on above: One Time for 1 Occur rences starting 03/02/2022 until 03/02/2022 End: 03-02-2022 Comprehensive metabolic 2000 panel - Serum or Plasma Comprehensive Metabolic Panel Lab STAT One Time for 1 Occurrences starting 03/02/2022 until 03/02/2022 [facility] Work Phone: Comment on above: One Time for 1 Occur rences starting 03/02/2022 until 03/02/2022 End: 09-06-2023 CT Abdomen WO contrast [facility] Work Phone: Comment on above: Once for 1 Occurrenc es starting 09/06/2023 until 09/06/2023 End: 12-22-2021 Culture, Blood 2 Culture, Blood 2 Microbiology STAT One Time for 1 Occurrences starting 12/22/2021 until 12/22/2021 [facility] Work Phone: Comment on above: One Time for 1 Occur rences starting 12/22/2021 until 12/22/2021 End: 12-22-2021 Microscopic examination of blood, culture Culture, Blood Microbiology STAT One Time for 1 Occurrences starting 12/22/2021 until 12/22/2021 [facility] Work Phone: Comment on above: One Time for 1 Occur rences starting 12/22/2021 until 12/22/2021 Microscopic examinat ion of blood, culture Culture, Blood Microbiology STAT 12/22/2021 12:22 AM EDT [facility] Work Phone: Oxygen therapy [[facility] Data Set] Initiate Oxygen Therapy Protocol Respiratory Care Routine As Needed until discontinued starting 10/21/2021 [facility] Comment on above: As Needed until disc ontinued starting 10/21/2021 Protime-INR Protime-INR Lab Routine Daily until discontinued starting 10/23/2021, 7 completed [facility] Work Phone: Comment on above: Daily until disconti nued starting 10/23/2021, 7 completed End: 03-02-2022 Protime-INR Protime-INR Lab Routine One Time for 1 Occurrences starting 03/02/2022 until 03/02/2022 [facility] Work Phone: Comment on above: One Time for 1 Occur rences starting 03/02/2022 until 03/02/2022 Spirometry panel Incentive stef metry Respiratory Care Routine Daily until discontinued starting 10/21/2021 [facility] Work Phone: Comment on above: Daily until disconti nued starting 10/21/2021 End: 10-21-2021 Wound ostomy eval Wound ostomy eval Wound Ostomy Routine One Time for 1 Occurrences starting 10/21/2021 until 10/21/2021 [facility] Work Phone: Comment on above: One Time for 1 Occur rences starting 10/21/2021 until 10/21/2021 [facility] NEGATED: Highlighted row has been ruled out! Planned Goals not documented TC-Jjqqsxmxuw-Bro ma Work Phone: Immunizations Immunization Date Immunization Notes Care Provider Fa cili 03-04-2019 influenza, high dose seasonal, preservative-free Sarika Salas [facility] 12-03-2018 pneumococcal polysac charide vaccine, 23 valent [facility] Work Phone: 01-25-2018 influenza, high dose seasonal, [...] Phone: Payers Date Payer Category Payer Unknown [id number] 03-19-2024 Self-pay 01-05-2022 Medicaid 01-05-2022 Medicare 01-05-2022 Medicare [id number] 10-05-2021 Medicaid [id number] 06-07-2021 Medicare UHC MEDICARE UHC DUAL COMPLETE HMO SNP [id number] 06/07/2021-Present [phone] [address] [place] [address] Medicare [id number] 06-07-2021 Medicare UHC MEDICARE [employer] DUAL COMPLETE [id number] 06/07/2021-Present [phone] [address] [place] [address] [id number]. [id number] 11-05-2019 Medicare UHC AARP MEDICAR E [facility] AARP MEDICARE HMO [id number] 11/05/2019-Present [id number] [id number] 07-06-2015 Medicare UHC MEDICARE UHC MEDICARE COMPLETE xxxxxxxxx 2015-Present xxxxxxxxx [id number] [id number] 1952 Unknown [id number] 2.16.840.1.935039.3.579. 2.668 1952 Unknown [id number] 2.16.840.1.541661.3.579. 2.668 1952 Unknown [id number] 2.840.1.729549.3.579. 2.6605-06-1950 Unknown [id number] 2.16.840.1.863029.3.579. 2.8 1952 Unknown [id number] 2.840.1.570455.3.579. 2.[birth year]-06-1950 Unknown [id number] 2.840.1.895300.3.579. 2.668 1952 Unknown [id number] 2.840.1.652716.3.579. 2.668 Private Health Insurance Unknown Unknown [id number] 2.840.1.773256.3.579. 2.462 Unknown [id number] 2.840.1.536438.3.579. 2.462 Unknown [id number] 2.840.1.858908.3.579. 2.462 Unknown [id number] 2.840.1.651455.3.579. 2.462 Unknown [id number] 2.16840.1.259992.3.579. 2.462 Unknown [id number] 2.16.840.1.300214.3.579. 2.462 Unknown [id number] 2.16.840.1.648124.3.579. 2.462 Unknown [id number] 2.16.840.1.176257.3.579. 2.462 Unknown [id number] 2.840.1.376206.3.579. 2.462 Unknown [id number] 2.16.840.1.473671.3.579. 2.462 Unknown [id number] 2.16.840.1.084715.3.579. 2.462 Unknown [id number] 2.16.840.1.530719.3.579. 2.462 Unknown [id number] 2.16.840.1.361489.3.579. 2.462 Unknown [id number] 2.16.840.1.822323.3.579. 2.462 Unknown [id number] 2.16.840.1.753211.3.579. 2.462 Unknown [id number] 2.840.1.754139.3.579. 2.462 Unknown [id number] 2.840.1.483038.3.579. 2.462 Unknown [id number] 2..840.1.436372.3.579. 2.462 Unknown [id number] 2.840.1.693742.3.579. 2.462 Unknown [id number] 2.840.1.193348.3.579. 2.462 Unknown [id number] 2.16.840.1.873499.3.579. 2.462 Unknown [id number] 2.16.840.1.472541.3.579. 2.462 Unknown [id number] 2..840.1.473461.3.579. 2.462 Unknown [id number] 2.16.840.1.025114.3.579. 2.462 Unknown [id number] 2.16.840.1.180495.3.579. 2.462 Unknown [id number] 2.16.840.1.603425.3.579. 2.462 Unknown [id number] 2.16.840.1.794175.3.579. 2.462 Unknown [id number] 2.16840.1.317853.3.579. 2.462 Unknown [id number] 2.16.840.1.719753.3.579. 2.462 Unknown [id number] 2.16840.1.338243.3.579. 2.462 Unknown [id number] 2.16.840.1.489802.3.579. 2.462 Unknown [id number] 2.16840.1.570644.3.579. 2.462 Unknown [id number] 2.16840.1.832928.3.579. 2.462 Unknown [id number] 2.840.1.095371.3.579. 2.462 Unknown [id number] 2.840.1.788864.3.579. 2.462 Unknown [id number] 2.840.1.154221.3.579. 2.462 Unknown [id number] 2.840.1.910102.3.579. 2.462 Unknown [id number] 2.840.1.242491.3.579. 2.462 Unknown [id number] 2.840.1.432544.3.579. 2.462 Unknown [id number] 2.840.1.889274.3.579. 2.462 Unknown [id number] 2.840.1.341094.3.579. 2.462 Unknown [id number] 2.840.1.053230.3.579. 2.462 Unknown [id number] 2.840.1.158711.3.579. 2.462 Unknown [id number] 2.840.1.917300.3.579. 2.462 Unknown [id number] 2.840.1.845018.3.579. 2.462 Unknown [id number] 2.16840.1.159010.3.579. 2.462 Unknown [id number] 2.16.840.1.636543.3.579. 2.462 Unknown [id number] 2.16.840.1.045336.3.579. 2.462 Unknown [id number] 2.16.840.1.153270.3.579. 2.462 Unknown [id number] 2.16.840.1.750916.3.579. 2.462 Unknown [id number] 2.16.840.1.797402.3.579. 2.462 Unknown [id number] 2.16.840.1.566001.3.579. 2.462 Unknown [id number] 2.16.840.1.104691.3.579. 2.462 Unknown [id number] 2.16.840.1.779952.3.579. 2.462 Unknown [id number] 2.16.840.1.052873.3.579. 2.462 Unknown 66668113 2.16.840.1.579669.3.579. 2.462 Unknown [id number] 2.16.840.1.653172.3.579. 2.462 Unknown [id number] 2.16.840.1.226043.3.579. 2.462 Unknown [id number] 2.16.840.1.310657.3.579. 2.462 Unknown 27281436 2.16.840.1.262334.3.579. 2.462 Unknown 40496076 2.16.840.1.455418.3.579. 2.462 Unknown [id number] 2.16.840.1.744232.3.579. 2.462 Unknown [id number] 2.16.840.1.472324.3.579. 2.462 Unknown 67614097 2.16.840.1.072216.3.579. 2.462 Unknown [id number] 2.16.840.1.999510.3.579. 2.462 Unknown 72025610 2.16.840.1.678630.3.579. 2.462 Unknown [id number] 2.16.840.1.138942.3.579. 2.462 Unknown [id number] 2.16.840.1.654070.3.579. 2.462 Unknown [id number] 2.16.840.1.715600.3.579. 2.462 Unknown [id number] 2.16.840.1.134193.3.579. 2.462 Unknown [id number] 2.16.840.1.412364.3.579. 2.462 Unknown [id number] 2.16.840.1.713229.3.579. 2.462 Unknown [id number] 2.16.840.1.182581.3.579. 2.462 Unknown [id number] 2.16.840.1.912670.3.579. 2.462 Unknown [id number] 2.16.840.1.996429.3.579. 2.462 Unknown [id number] 2.16.840.1.821621.3.579. 2.462 Unknown [id number] 2.16.840.1.032063.3.579. 2.462 Unknown [id number] 2.16.840.1.410488.3.579. 2.462 Unknown [id number] 2.16.840.1.208782.3.579. 2.462 Unknown 65692872 2.16.840.1.978105.3.579. 2.462 Unknown [id number] 2.16.840.1.409037.3.579. 2.462 Unknown 42373005 2.16.840.1.333066.3.579. 2.462 Unknown [id number] 2.16.840.1.682837.3.579. 2.462 Unknown [id number] 2.16.840.1.056576.3.579. 2.462 Unknown 40705045 2.16.840.1.339293.3.579. 2.462 Unknown [id number] 2.16.840.1.600830.3.579. 2.462 Unknown [id number] 2.16.840.1.252112.3.579. 2.462 Unknown [id number] 2.16.840.1.245419.3.579. 2.462 Unknown [id number] 2.16.840.1.051794.3.579. 2.462 Unknown [id number] 2.16.840.1.671454.3.579. 2.462 Unknown [id number] 2.16.840.1.840614.3.579. 2.462 Unknown [id number] 2.16.840.1.400467.3.579. 2.462 Unknown [id number] 2.16.840.1.965569.3.579. 2.462 Unknown [id number] 2.16.840.1.498136.3.579. 2.462 Unknown [id number] 2.16.840.1.353126.3.579. 2.462 Unknown [id number] 2.16.840.1.178276.3.579. 2.462 Unknown [id number] 2.16.840.1.682082.3.579. 2.462 Unknown [id number] 2.16.840.1.304460.3.579. 2.462 Unknown [id number] 2.16.840.1.944171.3.579. 2.462 Unknown [id number] 2.16.840.1.026094.3.579. 2.462 Unknown [id number] 2.16.840.1.896978.3.579. 2.462 Unknown [id number] 2.16.840.1.224869.3.579. 2.462 Unknown [id number] 2.16.840.1.428260.3.579. 2.462 Unknown [id number] 2.16.840.1.995265.3.579. 2.462 Unknown [id number] 2.16.840.1.865913.3.579. 2.462 Unknown [id number] 2.16.840.1.565897.3.579. 2.462 Unknown [id number] 2.16.840.1.436853.3.579. 2.462 Unknown [id number] 2.16.840.1.001472.3.579. 2.462 Unknown [id number] 2.16.840.1.277525.3.579. 2.462 Unknown [id number] 2.16.840.1.149095.3.579. 2.462 Unknown [id number] 2.16.840.1.282465.3.579. 2.462 Unknown [id number] 2.16.840.1.058728.3.579. 2.462 Unknown [id number] 2.16.840.1.839520.3.579. 2.462 Unknown [id number] 2.16.840.1.401542.3.579. 2.462 Unknown [id number] 2.16.840.1.600523.3.579. 2.462 Social History Date Type Detail Facility Start: 05-23-2018 End: 05-19-2019 Tobacco smoking status NVIS Former smoker [facility] Work Phone: History of tobacco use Cigar Smoker [facility] Work Phone: Start: 05-19-2019 End: 08-13-2023 Cigarettes smoked current (pack per day) - Reported [facility] Work Phone: Start: 05-19-2019 End: 08-13-2023 Alcohol intake Current non-drinker of alcohol (finding) [facility] Work Phone: Start: 12-03-2018 History SDOH Physica l Activity DPW 7 [facility] Work Phone: Start: 12-03-2018 History SDOH Physica l Activity MPS 9 [employer] Work Phone: Start: 12-03-2018 End: 10-31-2021 History SDOH Stress 1 [facility] Work Phone: Start: 12-03-2018 History SDOH Financial 5 [facility] Work Phone: Start: 12-03-2018 History SDOH Transpo rt Med 2 [employer] Work Phone: Start: 1950 Sex Assigned At Not on file S [facility] Work Phone: Start: 08-13-2012 End: 11-13-2019 Tobacco smoking status NHIS Never smoker [facility] Start: 05-23-2018 End: 11-13-2019 Tobacco use and exposure Never used [facility] Start: 11-13-2019 History SDOH Alcohol Std Drinks [address] [facility] Start: 10-11-2021 End: 02-15-2022 Exposure to SARS-CoV-2 (event) Not sure [facility] Start: 1950 Sex Assigned At Male [facility] History of tobacco use Current smoker [facility] Work Phone: History of tobacco use Cigarette Smoker S [facility] Work Phone: Start: 10-31-2021 End: 08-13-2023 Tobacco use panel [facility] Tobacco smoking stat us NVIS Unknown if ever smoked [facility] Work Phone: Start: 07-11-2024 End: 08-21-2024 Sex Male (finding) [facility] NEGATED: Highlighted row - - [facility] Work Phone: Medical Equipment Procedure Code Equipment Code Equipment Origin al Text Equipment Identifier Dates Kit Bactiseal Woodard maria guadalupe Silicone Barium Catheter Shunt Sterile - [id number] Start: 06-08-2021 Catheter Bactise al 14cm External Drainage Csf Sterile Latex Free - [id number] Start: 08-05-2021 Valve Certas Shannon nt Inline - [id number] Start: 06-08-2021 Cass snow Inline - [id number] Start: 08-05-2021 Valve Armando snow Inline - [id number] Start: 08-09-2021 Goals Date Patient Goal [...] confident he can reach it. Added to [facility] exercise information Functional Status Date Assessment Result Facility NEGATED: Highlighted row Functional performance Functional status health issues are not documented Disease [facility] Work Phone: Mental Status Date Assessment Result Facility NEGATED: Highlighted row Cognitive function [Interpretation] Cognitive status health issues are not documented Disease [facility] Work Phone: Clinical Notes 05-31-2021 [...] Hydrocephalus, adult (CMS/HCC) (HCC) Kidney stone Neuropathy TAKE OFF WORKER (ventriculoperitoneal) shunt status Past Surgical History: Procedure [...] 12:05 PM documented in this encounter [facility] 08-31-2023 Note S: Shanthi from [facility] spoke with [facility] nurse regarding voiding trial procedure. B: [...] Protocols used: Information Only Call - No [facility] Tele[facility] encounter Note S: Shanthi from [facility] spoke with [facility] nurse regarding voiding trial procedure. B: [...] Protocols used: Information Only Call - No Voiepv-SIROZ-LN [facility] 08-31-2023 Miscellaneous Notes S: Shanthi from [facility] [place] spoke with [facility] nurse regarding voiding trial procedure. B: Onset of symptoms/concern today. A: [facility] is calling to make sure [...] Protocols used: Information Only Call - No Iioorb-SKBYT-IV documented in this encounter [facility] 08-29-2023 Telephone encounter Note Lm on daughters vm to advise them to call the number for the technical publications manager to get clarification, and to call back with further questions [facility] 08-29-2023 Miscellaneous Notes Lm on daughters vm to advise them to call the number for the technical publications manager to get clarification, and to call back with further questions Yes, they will need to call the number given to them. Please advise Name of caller: Shanthi Contact phone number: [phone] Relationship to Patient: patient Provider: MD Quinn Practice: [facility] Urology Chief Complaint/Reason for Call: [...] to call Maury Avila at [facility] [phone] to get clarifications. TEA did reach back out to [facility] and advised and provider Maury's #. Please advise Best time of day caller can be reached: Any Patient advised that office/PCP has 24-48 business hours to return their call: N/A documented in this encounter [facility] 08-27-2023 Telephone encounter Note Yes, they will need to call the number given to them. [facility] 08-27-2023 Telephone encounter Note Please advise [facility] 08-21-2023 Telephone encounter Note Name of caller: Shanthi Contact phone number: [phone] Relationship to Patient: patient Provider: MD Quinn Practice: [facility] Urology Chief Complaint/Reason for Call: Shanthi called in to see if Pt would need to come by cot for his CT appt due to Pt being Boaz. TEA did reach out to office and was advised to reach out to Central Scheduling. TEA did reach out to CS and was advised to let [facility] know that she would need to reach out to call Maury Avila at [facility] [phone] to get clarifications. [facility] did reach back out to [facility] and advised and provider Maury's #. Please advise Best time of day caller can be reached: Any Patient advised that office/PCP has 24-48 business hours to return their call: N/A [facility] 08-13-2023 History of Present illness Narrative Images [...] Hydrocephalus, adult (CMS/HCC) (HCC) Kidney stone Neuropathy TAKE OFF WORKER (ventriculoperitoneal) shunt status Past Surgical History: Past [...] 10:45 AM documented in this encounter [facility] 06-25-2023 Telephone encounter Note [facility] called in stating appt scheduled 07/10/23 Guy has to be made further out, pt being transported by cot. Changed appt to 08/13/23 per [facility] only avail time for transport, first avail with DR Buck at 10:00 AM. [facility] 06-25-2023 Miscellaneous Notes [facility] called in stating appt scheduled 07/10/23 Guy has to be made further out, pt being transported by cot. Changed appt to 08/13/23 per [facility] only avail time for transport, first avail with DR Buck at 10:00 AM. documented in this encounter [facility] 12-22-2021 Hospital Discharge instructions SANIA Lou - 12/22/2021 2:32 AM EDT Please take medication as prescribed Please follow up with your Physicians as instructed in this discharge paperwork Thank you for choosing [facility] I appreciate your patience Please return to the emergency department if your symptoms worsen, or new symptoms develop as discussed documented in this encounter [facility] Work Phone: 10-29-2021 Note Hospitalist Discharg [...] abnormality and previous indwelling tubing history of TAKE OFF WORKER shunt ? #?Bilateral lower extremity wounds-wound care [...] neurologist. Patient will be transferred to the halfway and his Coumadin was continued, dosing instructions were given. Wound care was given for his lower extremity wounds. Consults: neurology, vascular surgery, gastroenterology Discharge Instructions: Diet: No diet orders on file Activity: as tolerated Disposition: Patient discharged in stable condition to halfway . Greater than 30 minutes spent discharging [...] Your Medications These medications were sent to [facility] [address] [place] [address] [address] [facility] - P [phone] - F [phone] [facility] [id number] ? levETIRAcetam 750 MG tablet ? warfarin 6 MG tablet Recommended Follow-up: No follow-up provider specified. Complexity of Follow up: [] Moderate Complexity: follow up within 7-14 calendar days (98878) [x] Severe Complexity: follow up within 7 calendar days (82872) Follow up Testing, Pending results or Referrals [...] Increased fatigue or (more content not included)... [facility] 10-29-2021 Hospital Discharge instructions Fabi [...] Contact Information Primary Emergency Contact: NelsonTriny Address: [address] [place] [address] [place] [address] [facility] Relation: Brother/Sister Secondary Emergency Contact: Melissa Sifuentes Mobile Relation: Child Preferred language: Libyan Past Surgical History: Past Surgical History: Procedure Laterality Date BRAIN SURGERY CHOLECYSTECTOMY COLONOSCOPY HERNIA REPAIR Immunization History: Immunization History Administered Date(s) Administered Influenza Virus Vaccine 02/08/2015 Influenza, High Dose (Fluzone 65 yrs and older) 01/25/2018, 03/04/2019 Influenza, Quadv, IM, (6 mo and older Fluzone, Flulaval, Fluarix and 3 yrs and older Afluria) 02/24/2016, 02/14/2017 Pneumococcal Conjugate 13-valent ([id number]) 09/22/2016 Pneumococcal Conjugate Vaccine 02/04/2013 Pneumococcal Polysaccharide ([id number]) 12/03/2018 Tdap (Boostrix, Adacel) 09/22/2016 Active Problems: [...] Dependent Dressing Dependent Toileting Dependent Feeding Dependent Coiled Tubing Supervisor Dependent Med Delivery whole in pudding Wound [...] Q4H prn SOB Oxygen Therapy: {Therapy; copd oxygen:53961} Ventilator: { CC Vent List:[id number]} Rehab Therapies: {THERAPEUTIC INTERVENTION:[id number]} Weight Bearing Status/Restrictions: Weight Bearing - Patient was bedbound in hospital Other Medical Equipment (for information only, NOT a DME order): wheelchair, hospital bed, and Boaz Other Treatments: Patient's personal belongings (please select all that are sent with patient): {[facility] DME Belongings:[id number]} RN SIGNATURE: CASE MANAGEMENT/SOCIAL WORK SECTION Inpatient Status Date: Readmission Risk Assessment Score: Readmission Risk Risk of Unplanned Readmission: 11 Discharging to Facility/ Agency Name: Address: Phone: Fax: Dialysis Facility (if applicable) Name: Address: Dialysis Schedule: Phone: Fax: Hot Dipper/Admitting Office Escort signature: {Esignature:[id number]} PHYSICIAN SECTION Prognosis: Fair Condition at Discharge: [...] diagnosis listed and that he requires Senior Living Facility for greater than 30 days. Update Admission H&P: No change in H&P PHYSICIAN SIGNATURE: documented in this encounter [facility] Work Phone: 10-29-2021 History of Present illness Narrative [facility] ([facility]) Inpatient Warfarin Consult HPI: Andrew Sifuentes is a 71 y.o. 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 Past Medical History: Diagnosis Date ED (erectile dysfunction) Hemorrhoids Hydrocephalus, adult (HCC) Kidney stone Neuropathy TAKE OFF WORKER (ventriculoperitoneal) shunt status Patient is newly referred to the [facility] clinic for warfarin management. Pt was referred [...] PharmD IRVIN Consult Service is available daily [phone]. Please search for covering pharmacist name via Clear Standards or Groups --> Pharmacy --> Anti-Coagulation Consult Pharmacist (on 3rd page). If no response via Clear Standards, please page [phone]. Patient seen and chart reviewed. Afebrile. Adequate oxygenation on room air. Baseline mentation. Exam stable X 5 systems. Hgb 11.0 WBC 10.0 K Platelets 344 K Creatinine 0.71 GFR > 90 cc/min. NSE 20.8 with hemolysis. PT 30.8 INR 3.1 Conversion to Warfarin has been completed. APS w/u pending. 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 Will continue to monitor. Total visit time > 35 minutes. Neurology Attending Progress Note SUBJECTIVE: No issues overnight. Care discussed with nursing staff/patient's medical team MRI brain reported nothing acute. 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 At present patient is awake, follows commands, was able to tell his name, and that he was in hospital but not oriented to time. Per documentation patient had NCSE in May 2021, was on Vimpat, but it was discontinued as there was no evidence of recurrent seizures in july 2021 by Neurology at [facility], per daughter patient was on Dilantin for 31 yrs. Per daughter patient had seizures in the past and also felt he had staring episodes 10/26/2021 morning. Per daughter patient has been essentially bed bound in [place] since May 2021 but prior to that was independent Impressions: H/O hydrocephalus H/O seizure, H/O stroke Acute DVT H/O PE Plan: -MRI brain w/o contrast nothing acute -CT head done during this admission reported no hydrocephalus, ventricles within normal limits and both old and new TAKE OFF WORKER shunt tubing noted -EEG mild to moderate [...] then may need to be transferred to [facility]. -No clear clinical signs of ventriculitis. Defer evaluation to primary medical team/ID as deemed necessary. -Discussed with daughter in detail on . She was concerned that patient has had h/o seizures, and he has been taken off seizure medication, per note documentation patient had NCSE in May 2021 when he was admitted to [facility]. Per daughter she would want patient [...] the weekend, primary hospitalist team to contact behavioral consultant Neurology at [facility] for any weekend neurological issues related to the patient and if need to discuss any neurological test results/findings. Other deal in house Neurology coverage will be available from Sunday at [facility] and please call behavioral consultant Neurology back on Sunday if need further assistance. This note has been generated using Idooble dictation software. It may contain incorrect words, punctuation's and spellings that were not noted in the review of the note prior to signing. This note has been generated using Idooble dictation software. It may contain incorrect words, [...] AST 24 BILITOT 0.4 LABALBU 3.7 @BRIEFLAB([facility]) ABGs: )No results for input(s): PH, [...] Radiology ACCESSION EXAM DATE/TIME PROCEDURE ORDERING PROVIDER [id number] 10/21/2021 15:30 EDT CR Calcaneus 2+ Views [id number] -SHRUTHI MALIK Left CPT code 85025 Reason For Exam (CR Calcaneus 2+ Views [...] [facility]: [id number] Tomography ACCESSION EXAM DATE/TIME PROCEDURE ORDERING PROVIDER [id number] 10/26/2021 11:[address] Head or Brain w/o JUNIE PINEDA ALLISON Contrast CPT code 01276 Reason For Exam (CT Head or Brain w/o Contrast) hydrocephalus. thank you Report CLINICAL INFORMATION: Hydrocephalus. Shunt. 3 mm axial cuts through the head are obtained without IV contrast. The examination is compared to a previous study dated 06/29/2014. FINDINGS: Old TAKE OFF WORKER shunt tubing is noted bilaterally. The new [...] are clear. IMPRESSION: 1. Old and new TAKE OFF WORKER shunt tubing. 2. No hydrocephalus. 3. Atrophy [...] Imaging ACCESSION EXAM DATE/TIME PROCEDURE ORDERING PROVIDER [id number] 10/23/2021 11:08 EDT MRI Abdomen w/o Contrast SRIVASTAVAWING CPT code 52713 Reason For Exam (MRI Abdomen w/o Contrast) [...] Medicine ACCESSION EXAM DATE/TIME PROCEDURE ORDERING PROVIDER [id number] 10/21/2021 07:55 EDT NM Pulmonary Perfusion [id number] -MAY CASH w/ Vent Aerosol CPT code 02373 A9567 Reason For Exam (NM Pulmonary Perfusion [...] Brachial Indices Extremity Bilateral Result Date: 10/22/2021 [facility] --- Ankle Brachial Index Report Patient DO GurpreetB: 1950 Study 10/21/2021 Name: Andrew Gonzalez (71yrs) Date: Age: 71 Account: [id number] Gender: M Loc: 444W BP: Ordering Physician: Shruthi Malik Motor Expert: Rody Cross RDMS, RVT Interpreting Physician: Carina Call --- Location: [facility] --- Indications: Foot wounds. Originally ordered as a full PVR. Ordering IT LEAD had to modify the order to ABIs [...] supine position. Images were obtained using a [employer] vascular ultrasound machine. --- Arterial pressure indices: [...] EXTREMITY BILATERAL VENOUS DUPLEX Result Date: 10/21/2021 [facility] --- Lower Extremity Venous Duplex Report Patient DO GurpreetB: 1950 Study 10/21/2021 Name: Andrew Gonzalez (71yrs) Date: Age: 71 Account: [id number] Gender: M Loc: 444 BP: Ordering Physician: May Cash Motor Expert: Rody Cross RDMS, RVT Interpreting Physician: Carina Call --- Location: [facility] --- Indications: Bilateral lower leg edema. --- [...] supine position. Images were obtained using a [employer] vascular ultrasound machine. --- Venous flow and [...] Radiology ACCESSION EXAM DATE/TIME PROCEDURE ORDERING PROVIDER [id number] 10/21/2021 08:16 EDT CR Chest 1 View Frontal [id number] MAY BOGGS CPT code 76250 Reason For Exam (CR Chest 1 View [...] [facility]: [id number] Computed Tomography ACCESSION EXAM DATE/TIME PROCEDURE ORDERING PROVIDER [id number] 10/22/2021 13:[address] Abdomen/Pelvis (No SRIVASTAVA, WING PO, No IV) CPT code 01795 Reason For Exam (CT Abdomen/Pelvis (No PO, [...] Imaging ACCESSION EXAM DATE/TIME PROCEDURE ORDERING PROVIDER [id number] 10/27/2021 13:14 EDT MRI Brain w/o Contrast UNASSIGNED, UNASSIGNED CPT code 62714 Reason For Exam (MRI Brain w/o Contrast) stroke Patient has TAKE OFF WORKER shunt in place, please follow Radiology protocol [...] included. Hospitalist Progress Note 10/28/2021 11:37 AM [phone]: Please page me @ [phone] for patient care issues. [phone]: Please page tallow maker for any issues@ night Subjective: Admit Date: [...] abnormality and previous indwelling tubing history of TAKE OFF WORKER shunt # Bilateral lower extremity wounds-wound care [...] Services This report was created using the Currently Speaking voice-activated system. Despite prompt dictation and careful editorial review, there may be subtle contextual errors in this report, due to misrecognition of the spoken word. Speech Language Pathology Facility/Department: [facility] Dysphagia Treatment Note NAME: [...] were worn throughout this session. [facility] ([facility]) Inpatient Warfarin Consult HPI: Andrew Sifuentes is a 71 y.o. 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 Past Medical History: Diagnosis Date ED (erectile dysfunction) Hemorrhoids Hydrocephalus, adult (HCC) Kidney stone Neuropathy TAKE OFF WORKER (ventriculoperitoneal) shunt status Patient is newly referred to the [facility] clinic for warfarin management. Pt was referred [...] drug interactions and adjust dose accordingly. 3. [facility] will manage while inpatient and sign off at discharge. Patient resides in a SNF. 4. Will provide warfarin education including [facility] warfarin booklet, if appropriate. Brionna Le, PharmD candidate Josie Gupta RPh, PharmD [facility] Consult Service is available daily [phone]. Please search for covering pharmacist name via [employer] or Groups --> Pharmacy --> Anti-Coagulation Consult Pharmacist (on 3rd page). If no response via PerfectServe, please page [phone]. Follow up b/l foot wounds. 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 At present patient is awake, follows commands, was able to tell his name, and that he was in hospital but not oriented to time. Per documentation patient had NCSE in May 2021, was on Vimpat, but it was discontinued as there was no evidence of recurrent seizures in july 2021 by Neurology at [facility], per daughter patient was on Dilantin for 31 yrs. Per daughter patient had seizures in the past and also felt he had staring episodes 10/26/2021 morning. Per daughter patient has been essentially bed bound in [place] since May 2021 but prior to that was independent Impressions: H/O hydrocephalus H/O seizure, H/O stroke Acute DVT H/O PE Plan: -MRI brain w/o contrast. Per daughter she would like MRI brain done to evaluate for strokes -CT head done during this admission today reported no hydrocephalus, ventricles within normal limits and both old and new TAKE OFF WORKER shunt tubing noted -EEG mild to moderate [...] then may need to be transferred to [facility]. -No clear clinical signs of ventriculitis. Defer evaluation to primary medical team/ID as deemed necessary. -Discussed with daughter in detail on . She was concerned that patient has had h/o seizures, and he has been taken off seizure medication, per note documentation patient had NCSE in May 2021 when he was admitted to [facility]. Per daughter she would want patient [...] interim. This note has been generated using Idooble dictation software. It may contain incorrect words, punctuation's and spellings that were not noted in the review of the note prior to signing. This note has been generated using Idooble dictation software. It may contain incorrect words, [...] AMYLASE, LIPASE in the last 72 hours.@BRIEFLAB([facility]) ABGs: )No results for input(s): PH, [...] Radiology ACCESSION EXAM DATE/TIME PROCEDURE ORDERING PROVIDER [id number] 10/21/2021 15:30 EDT CR Calcaneus 2+ Views [id number] -SHRUTHI MALIK Left CPT code 93497 Reason For Exam (CR Calcaneus 2+ Views [...] Tomography ACCESSION EXAM DATE/TIME PROCEDURE ORDERING PROVIDER [id number] 10/26/2021 11:[address] Head or Brain w/o EDWIN, IT LEAD, SARINA Contrast CPT code 75224 Reason For Exam (CT Head or Brain w/o Contrast) hydrocephalus. thank you Report CLINICAL INFORMATION: Hydrocephalus. Shunt. 3 mm axial cuts through the head are obtained without IV contrast. The examination is compared to a previous study dated 06/29/2014. FINDINGS: Old TAKE OFF WORKER shunt tubing is noted bilaterally. The new [...] are clear. IMPRESSION: 1. Old and new TAKE OFF WORKER shunt tubing. 2. No hydrocephalus. 3. Atrophy [...] Imaging ACCESSION EXAM DATE/TIME PROCEDURE ORDERING PROVIDER [id number] 10/23/2021 11:08 EDT MRI Abdomen w/o Contrast WING SRIVASTAVA CPT code 34260 Reason For Exam (MRI Abdomen w/o Contrast) [...] Medicine ACCESSION EXAM DATE/TIME PROCEDURE ORDERING PROVIDER [id number] 10/21/2021 07:55 EDT NM Pulmonary Perfusion [id number] MAY BOGGS w/ Vent Aerosol CPT code 07683 A9567 Reason For Exam (NM Pulmonary Perfusion [...] Brachial Indices Extremity Bilateral Result Date: 10/22/2021 [facility] --- Ankle Brachial Index Report Patient Gurpreet RADHA: 1950 Study 10/21/2021 Name: Andrew Gonzalez (71yrs) Date: Age: 71 Account: [id number] Gender: M Loc: 444W BP: Ordering Physician: Shruthi Malik Motor Expert: Rody Cross RDMS, RVT Interpreting Physician: Carina Call --- Location: [facility] --- Indications: Foot wounds. Originally ordered as a full PVR. Ordering IT LEAD had to modify the order to ABIs [...] supine position. Images were obtained using a Empact Interactive Medias vascular ultrasound machine. --- Arterial pressure indices: [...] EXTREMITY BILATERAL VENOUS DUPLEX Result Date: 10/21/2021 [facility] --- Lower Extremity Venous Duplex Report Patient DO GurpreetB: 1950 Study 10/21/2021 Name: Andrew Gonzalez (71yr) Date: Age: 71 Account: [id number] Gender: M Loc: 444 BP: Ordering Physician: May Cash Motor Expert: Rody Cross RDMS, RVT Interpreting Physician: Jakub, Carina --- Location: [facility] --- Indications: Bilateral lower leg edema. --- [...] supine position. Images were obtained using a Empact Interactive Medias vascular ultrasound machine. --- Venous flow and [...] Radiology ACCESSION EXAM DATE/TIME PROCEDURE ORDERING PROVIDER [id number] 10/21/2021 08:16 EDT CR Chest 1 View Frontal [id number] MAY BOGGS CPT code 43666 Reason For Exam (CR Chest 1 View [...] Tomography ACCESSION EXAM DATE/TIME PROCEDURE ORDERING PROVIDER [id number] 10/22/2021 13:[address] Abdomen/Pelvis (No SRIVASTAVA, WING PO, No IV) CPT code 52963 Reason For Exam (CT Abdomen/Pelvis (No PO, [...] 12:48 PM Consults Speech Language Pathology Facility/Department: [facility] Dysphagia Treatment Note NAME: [...] reactivity and state change, indicative of a yibg-zo-gmcndnty diffuse encephalopathy of nonspecific etiology. There are [...] Easy to chew diet/cut up. NEVILLE Jones M.A.CCC/PIPE LINE WALKER Time session ended: 1156 Total session minutes: 23 Images from the original note were not included. Hospitalist Progress Note 10/27/2021 10:40 AM [phone]: Please page me @ [phone] for patient care issues. [phone]: Please page tallow maker for any issues@ night Subjective: Admit Date: [...] Services This report was created using the Currently Speaking voice-activated system. Despite prompt dictation and careful editorial review, there may be subtle contextual errors in this report, due to misrecognition of the spoken word. [facility] ([facility]) Inpatient Warfarin Consult HPI: Andrew Sifuentes is a 71 y.o. 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 Past Medical History: Diagnosis Date ED (erectile dysfunction) Hemorrhoids Hydrocephalus, adult (HCC) Kidney stone Neuropathy TAKE OFF WORKER (ventriculoperitoneal) shunt status Patient is newly referred to the [facility] clinic for warfarin management. Pt was referred by Ellen Scherer APRN-KMI. Pt is on warfarin for DVT and [...] Will provide warfarin education including [facility] warfarin booklet, if appropriate. Thank you for this consult Brionna Le, RigoD candidate Josie Gupta [facility], PharmD IRVIN Consult Service is available daily [phone]. Please search for covering pharmacist name via Clear Standards or Groups --> Pharmacy --> Anti-Coagulation Consult Pharmacist (on 3rd page). If no response via Clear Standards, please page [phone]. I cleaned under patient's finger nails with [...] status with Warfarin. 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 Will continue to monitor. Total visit [...] if concern Hydrocephalus Chronic WOODARD's - Revised TAKE OFF WORKER shunt - daughter requested that pt have [...] then may need to be transferred to [facility]. " Seizure history, unspecified - daughter [...] from nursing. Continue wound care. [facility] ([facility]) Inpatient Warfarin Consult HPI: Andrew Sifuentes is a 71 y.o. 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 Past Medical History: Diagnosis Date ED (erectile dysfunction) Hemorrhoids Hydrocephalus, adult (HCC) Kidney stone Neuropathy TAKE OFF WORKER (ventriculoperitoneal) shunt status Patient is newly referred to the [facility] clinic for warfarin management. Pt was referred by Ellen B Niesha, GEOPH[employer]ORATORY CHIEF-F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 SUPERVISOR. Pt is on warfarin for DVT and [...] PharmD IRVIN Consult Service is available daily [phone]. Please search for covering pharmacist name via Clear Standards or Groups --> Pharmacy --> Anti-Coagulation Consult Pharmacist (on 3rd page). If no response via Clear Standards, please page [phone]. Moon daughter stated that any of patient's family can call and obtain an update on patient's status. Speech Language Pathology Facility/Department: [facility] CLINICAL BEDSIDE SWALLOW EVALUATION [...] a small bore straw. Additionally discussed with PIPE LINE WALKER, agreeable to assess tomorrow. Recent Chest Xray/CT [...] and liquids between bites. Treatment Plan Requires PIPE LINE WALKER Intervention: Yes Duration of Treatment: 2 weeks [...] Education Response: Verbalizes understanding;Needs reinforcement Therapy Time PIPE LINE WALKER Individual Minutes Time In: 826 Time Out: 852 Minutes: 26 NEVILLE Jones 10/26/2021 9:20 AM Comprehensive Nutrition Assessment Type and Reason for Visit: Initial (DT referral for wounds) Nutrition Recommendations/Plan: 1. Recommend to continue: Easy to Chew diet with Thin Liquids as currently ordered and safe for patient to participate in. Discussed with: RN, IT LEAD, and PIPE LINE WALKER. PIPE LINE WALKER to assess tomorrow, best diet and liquid [...] Malnutrition Assessment: Malnutrition Status: Moderate malnutrition (10/25/21 1049) Context: Chronic Illness Findings of the 6 [...] deltoids),Scapula (trapezius) Fluid Accumulation: Mild Extremities Director [employer] Strength: Not Performed Nutrition Assessment: 71 year [...] a small bore straw. Additionally discussed with PIPE LINE WALKER, agreeable to assess tomorrow. Nutrition Related Findings: [...] Anthropometric Measures: Height: 5' 7.01" (170.2 cm) [place] Body Weight (IBW): 148 lbs (67 kg) [...] On: Kcal/kg Weight Used for Energy Requirements: [place] (67.15 kg) Energy (kcal/day): 9262-4278 (27-32 kcal/kg IBW) --> increased need d/t wounds Weight Used for Protein Requirements: [place] (67.15 kg) Protein (g/day): 67-101 (1.0-1.5 g protein/kg IBW) Method Used for Fluid Requirements: Other (Comment) Fluid (ml/day): 3638-6913 mL daily or per MD Nutrition Diagnosis: [...] Plan of Care discussed with: Patient, RN, IT LEAD Edwin Goals: Goals: other (specify) Specify Other [...] to determine Puja Almanza RD, LD Contact: [phone] Or Via Clear Standards Hematology/Oncology Attending Progress Note SUBJECTIVE: Patient seen [...] IRON, TIBC, FERRITIN No results found for: [id number] No results found for: FOLATE PT 15.6 INR 1.5 CA 19 - 9 is 17 Protein S 138% Protein C 186% ASSESSMENT AND PLAN GI input appreciated. Patient continues with subtherapeutic INR. GI input appreciated. 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 Will continue monitor. Total visit time > 35 minutes. [facility] ([facility]) Inpatient Warfarin Consult HPI: Andrew Sifuentes is a 71 y.o. 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 Past Medical History: Diagnosis Date ED (erectile dysfunction) Hemorrhoids Hydrocephalus, adult (HCC) Kidney stone Neuropathy TAKE OFF WORKER (ventriculoperitoneal) shunt status Patient is newly referred to the [facility] clinic for warfarin management. Pt was referred [...] Will provide warfarin education including [facility] warfarin booklet, if appropriate. Thank you for this consult Brionna Le, PharmD candidate Josie Gupta RPh, PharmD [facility] Consult Service is available daily [phone]. Please search for covering pharmacist name via Clear Standards or Groups --> Pharmacy --> Anti-Coagulation Consult Pharmacist (on 3rd page). If no response via Clear Standards, please page [phone]. Progress Note 10/25/2021 9:36 AM Name: Andrew [...] if concern Hydrocephalus Chronic WOODARD's - Revised TAKE OFF WORKER shunt DC planning - 10/25/21: INR subtherapeutic, [...] if concern Hydrocephalus Chronic WOODARD's - Revised TAKE OFF WORKER shunt DC planning - Can be DC'd back to [facility] once MRI done if no acute findings, MRI is done, defer to hem / onc on plan for that, awaiting chest PA with fluoro Patient seen and chart reviewed. Consult dictated. Will ask GI to assess concerning the etiology of liver lesions. Will continue to monitor. [facility] ([facility]) Inpatient Warfarin Consult HPI: Andrew Sifuentes is a 71 y.o. 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 Past Medical History: Diagnosis Date ED (erectile dysfunction) Hemorrhoids Hydrocephalus, adult (HCC) Kidney stone Neuropathy TAKE OFF WORKER (ventriculoperitoneal) shunt status Patient is newly referred to the [facility] clinic for warfarin management. Pt was referred [...] drug interactions and adjust dose accordingly. 3. [facility] will manage while inpatient and sign off at discharge. Patient resides in a SNF. 4. Will provide warfarin education including [facility] warfarin booklet, if appropriate. Thank you for this consult Brionna Le, PharmD candidate Josie Gupta RPh, PharmD [facility] Consult Service is available daily [phone]. Please search for covering pharmacist name via Yohobuyve or Groups --> Pharmacy --> Anti-Coagulation Consult Pharmacist (on 3rd page). If no response via PerfectServe, please page [phone]. Follow up foot wounds Patient is more alert this morning. Waffle boots are on Ulcer left heel ulcer right foot Foot drop PE, chart reviewed. Patient relates that he does not walk at home. c ontinue wound care. Images from the original note were not included. Hospitalist Progress Note 10/23/2021 1:47 PM [phone]: Please page me ([phone]) or perfect serve me for patient care issues. [phone]: Please page I[facility] night Hospitalist for any issues. Subjective: Admit Date: 10/21/2021 PCP: MONIKA STALEY MD Room#: [id number]/[id number] Admitting Synopsis: 71 y/o male presents from [...] if concern Hydrocephalus Chronic WOODARD's - Revised TAKE OFF WORKER shunt DC planning - Can be DC'd [...] Hemorrhoids Hydrocephalus, adult (HCC) Kidney stone Neuropathy TAKE OFF WORKER (ventriculoperitoneal) shunt status Medications: sodium chloride warfarin [...] of Hospitalist Medicine Inpatient Medical Services PAGER: [phone] Nutrition rescreen completed. Pt referred to RD for foot ulcers. Occupational Therapy Facility/Department: [facility] Occupational Therapy Initial Assessment Name: Andrew Sifuentes : 1950 Date of Service: 10/23/2021 OT eval and treat orders received. Chart reviewed. Per notes pt from [facility], is Boaz lift at baseline, non-ambulatory, and requires assist for all ADLs. Will d/c OT orders. Elizabeth Gutierrez OT Physical Therapy Facility/Department: [address] Physical Therapy Initial Assessment Name: Andrew Sifuentes : 1950 Date of Service: 10/23/2021 PT eval and treat orders received. Chart reviewed. Per notes pt from [facility], is Boaz lift at baseline, non-ambulatory. Will d/c PT orders. Lloyd Silva PT [facility] ([facility]) Inpatient Warfarin Consult HPI: Andrew Sifuentes is a 71 y.o. 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 Past Medical History: Diagnosis Date ED (erectile dysfunction) Hemorrhoids Hydrocephalus, adult (HCC) Kidney stone Neuropathy TAKE OFF WORKER (ventriculoperitoneal) shunt status Patient is newly referred to the [facility] clinic for warfarin management. Pt was referred [...] PharmD IRVIN Consult Service is available daily [phone]. Please search for covering pharmacist name via Clear Standards or Groups --> Pharmacy --> Anti-Coagulation Consult Pharmacist (on 3rd page). If no response via Yohobuyve, please page [phone]. Department of Podiatry Attending Consult Note Reason for Consult: Wound care Requesting Physician: MD Oksana CHIEF COMPLAINT: Foot wounds HISTORY OF PRESENT ILLNESS: The patient is a 71 y.o. male with b/l foot wounds. Patient is awake , but not answering questions. Past Medical History: Diagnosis Date ED (erectile dysfunction) Hemorrhoids Hydrocephalus, adult (HCC) Kidney stone Neuropathy TAKE OFF WORKER (ventriculoperitoneal) shunt status Past Surgical History: Procedure [...] OT consulted. Will follow . Thank you. [facility] Respiratory Care Department Progress Note [...] included. Hospitalist Progress Note 10/22/2021 6:33 AM [phone]: Please page me ([phone]) or perfect serve me for patient care issues. [phone]: Please page [facility] night Hospitalist for any issues. Subjective: Admit Date: 10/21/2021 PCP: MONIKA STALEY MD Room#: 531/[id number] Admitting Synopsis: 71 y/o male presents from [...] consider MRI if concern Hydrocephalus - Revised TAKE OFF WORKER shunt Interval History: No overnight issues. Denies [...] Hemorrhoids Hydrocephalus, adult (HCC) Kidney stone Neuropathy TAKE OFF WORKER (ventriculoperitoneal) shunt status Medications: sodium chloride baclofen [...] of Hospitalist Medicine Inpatient Medical Services PAGER: [phone] Images from the original note were not included. Hospitalist Progress Note 10/21/2021 5:31 PM [phone]: Please page me ([phone]) or perfect serve me for patient care issues. [phone]: Please page IMS night Hospitalist for any [...] Will need chronic OAC Hydrocephalus - Revised TAKE OFF WORKER shunt Interval History: No overnight issues. Denies [...] Hemorrhoids Hydrocephalus, adult (HCC) Kidney stone Neuropathy TAKE OFF WORKER (ventriculoperitoneal) shunt status Medications: sodium chloride baclofen [...] of Hospitalist Medicine Inpatient Medical Services PAGER: [phone] Family member Triny, sister to patient, called back to the hospital stating that she was returning a call from a provider. Her phone number is [phone] to speak with whomever was attempting to reach out to her. documented in this encounter [facility] Work Phone: 10-17-2021 Miscellaneous Notes Mr. Sifuentes missed his hospital stay follow-up appointment w. Dr. Lim today. Called to Reschedule. Could not get through. "Subscriber you have dialed not in service" - was the automated voice mail. Unable to leave VM. No other phone# available. Ramya Negro Dietetic Assistant [facility] documented in this encounter [facility] 08-19-2021 Note [facility] 08-19-[address] [facility] 08-18-2021 Note [facility] 08[facility]18-2021 Note [facility] 08-17-2021 Note [facility] 08[facility]17-2021 Note [facility] 08-16-2021 Note [facility] 08-16-2021 Note HNO ID: [id number] Author: Katt Kelsey DO Service: Hospital Medicine Author Type: Physician Type: Plan of Care Filed: 08/16/2021 12:26 PM Note Text: Spoke with RN that line is a PICC. Katt Kelsey DO 08/16/2021 12:26 PM [facility] 08-16-[address] [facility] 08-16-2021 Note [facility] 08-15-2021 Note [facility] 08-15-2021 Note [facility] 08-15-2021 Note [facility] 08-14-2021 Note [facility] 08[facility]14-2021 Note [facility] 08-13-2021 Note [facility] 08-13-2021 Note [facility] 08-13-2021 Note [facility] 08-13-2021 Note HNO ID: [id number] Author: Ambar Note Service: ? Author Type: ? Type: Progress Notes Filed: 08/13/2021 3:10 AM Note Text: Epic Scheduled Downtime: 08/13/2021 1:08:47 AM to 08/13/2021 2:53:47 AM [facility] 08-12-[address] [facility] 08-12-[address] [facility] 08[facility]12-[address] [facility] 08-11-[address] [facility] 08-11-[address] [facility] 08-11-[address] [facility] 08-11-[address] [facility] 08-11-[address] [facility] 08[facility]11-[address] [facility] 08-10-[address] [facility] 08-10-[address] [facility] 08-10-[address] [facility] 08-10-[address] [facility] 08-09-2021 Note HNO ID: [id number] Author: Shannon Brooks RN Service: ? Author Type: Registered Nurse Type: Nursing Progress Note Filed: 08/09/2021 7:33 PM Note Text: Report called to unit [facility] 08-09-[address] [facility] 08-09-[address] [facility] 08-09-[address] [facility] 08-08-[address] [facility] 08-08-[address] [facility] 08-08-[address] [facility] 08-07-[address] [facility] 08-07-[address] [facility] 08-07-[address] [facility] 08-07-2021 Note [facility] 08-07-2021 Note [facility] 08-06-2021 Note [facility] 08-06-2021 Note [facility] 08-06-2021 Note [facility] 08-05-2021 Note [facility] 08-05-2021 Note [facility] 08[facility]05-2021 Note [facility] 08-04-2021 Note [facility] 08-04-2021 Note [facility] 08-04-2021 Note [facility] 08-03-2021 Note [facility] 08[facility]03-2021 Note [facility] 08[facility]03-2021 Note [facility] 08-02-2021 Note [facility] 08-02-2021 Note [facility] 08-02-2021 Note [facility] 08-01-2021 Note [facility] 08-01-2021 Note [facility] 08[facility]01-2021 Note [facility] 08-01-2021 Note [facility] 07-31-2021 Note [facility] 07-31-2021 Note [facility] 07-30-2021 Note [facility] 07-30-2021 [facility] 07[facility]30-2021 [facility] 07-29-2021 [facility] 07-29-2021 Note [facility] 07-29-2021 Note [facility] 07-28-2021 Note [facility] 07-28-2021 Note [facility] 07[facility]28-2021 Note [facility] 07-27-2021 Note [facility] 07-27-2021 Note [facility] 07-27-2021 Note [facility] 07-26-2021 Note [facility] 07-26-2021 Note [facility] 07[facility]26-2021 Note [facility] 07-26-2021 Note [facility] 07-26-2021 Note [facility] 07-25-2021 Note [facility] 07-25-2021 Note [facility] 07-25-2021 Note [facility] 07-25-2021 Note [facility] 07-24-2021 Note [facility] 07[facility]24-2021 Note [facility] 07-24-2021 Note [facility] 07-23-2021 Note [facility] 07-23-2021 Note [facility] 07-23-2021 [facility] 07-23-[address] [facility] 07-23-[address] [facility] 07-22-[address] [facility] 07-22-[address] [facility] 07-22-[address] [facility] 07-21-[address] [facility] 07[facility]21-[address] [facility] 07-21-[address] [facility] 07-21-2021 History of Past i [...] history of fever, elevated WBC, RP hematoma TAKE OFF WORKER shunt tip grew anaerobic gram positive cocci 06/08/2021 PLAN: TAKE OFF WORKER shunt tip sent to [facility] main, awaiting cx Continue Meropenem per I.D [...] - following CSF studies; 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 for OBSTETRICS GYN PHYSICIAN infection at this time - ID following- Continue antibiotics: Meropenem -CSF leak from EVD site, appreciate NSGY recs> stat repeat CTH on 06/07 d/t concern for CSF leak, cephalematoma, CTH unremarkable -Tolerating TF - SBT WTE - PICC line placed documented as of this encounter (statuses as of 10/17/2021) [facility]03-17-2022 [facility]03-16-2022 [facility]03-16-2022 [facility]03-16-2022 Note [facility]03[facility]16-2022 [facility] [facility]03-15-2022 [facility]03-15-2022 [facility]03-14-2022 [facility]03-14-2022 [facility]03-13-2022 [facility]03[facility]13-2022 [facility]03-12-2022 Note [facility]03-12-2022 [facility] 07-15-2021 [facility]03-11-2022 [facility]03-10-2022 [facility]03-10-2022 [facility]03-10-2022 [facility]03-09-2022 [facility]03-09-2022 [facility]03-09-2022 Note [facility]03-09-2022 [facility] 07-12-2021 [facility]03-08-2022 [facility]03-07-2022 [facility]03-07-2022 [facility]03-07-2022 [facility]03-07-2022 [facility]03-06-2022 [facility]03-06-2022 Note [facility]03-05-2022 [facility] 07-09-2021 [facility]03-05-2022 [facility]03-05-2022 [facility]03-05-2022 NoteHNO ID: [id number] Author: Lizette Valderrama RN Service: Nursing Author Type: Registered Nurse Type: Nursing Progress Note Filed: 07/09/2021 1:41 AM Note Text: Report called to Anel [facility]03-04-2022 NoteHNO ID: [id number] Author: Lizette Valderrama RN Service: Nursing Author Type: Registered Nurse Type: Nursing Progress Note Filed: 07/08/2021 8:57 PM Note Text: [address]49 back to PACU [address] [place], [place] [address]3-04-2022 NoteHNO ID: [id number] Author: Sukhi Chery APRN.CNP Service: ? Author Type: Nurse Practitioner Type: Progress Notes Filed: 07/09/2021 6:46 PM Note Text: Connected Care Unit Progress Note Patient Name: Andrew Sifuentes Patient Facility: [facility] Admit Date 06/28/2021 Level of Care: Skilled [...] Dept Phone 07/21/2021 11:00 AM NICOLE LIM [phone] HPI: (Per Dr. Beltran) Andrew Sifuentes is being seen today for prison facility (SNF) admission AND management of weakness, tube feed, infected retroperitoneal infection and seizure. ? This is a 71 year old male who presents from [facility] with primary admitting diagnosis of [...] CT brain concerning for hydrocephalus. Tip of TAKE OFF WORKER shunt was found to be in the [...] slow to respond. Ordered to transfer to [facility] ED for evaluation of neurological and [...] changes in co (more content not included)... [facility]03-04-2022 [facility]03-04-2022 [facility]03-02-2022 NoteHNO ID: [id number] Author: Sukhi Chery APRN.CNP Service: ? Author Type: Nurse Practitioner Type: Progress Notes Filed: 07/09/2021 6:20 PM Note Text: Connected Care Unit Progress Note Patient Name: Andrew Sifuentes Patient Facility: [facility] Admit Date 06/28/2021 Level of Care: Skilled [...] Dept Phone 07/21/2021 11:00 AM NICOLE LIM [phone] HPI: (Per Dr. Beltran) Andrew Sifuentes is being seen today for prison facility (SNF) admission AND management of weakness, tube feed, infected retroperitoneal infection and seizure. ? This is a 71 year old male who presents from [facility] with primary admitting diagnosis of [...] CT brain concerning for hydrocephalus. Tip of TAKE OFF WORKER shunt was found to be in the [...] Pharynx: Oropharynx is clear. (more content not included)...[facility]02-28-2022 NoteHNO ID: [id number] Author: Sukhi Chery APRN.F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 SUPERVISOR Service: ? Author Type: Nurse Practitioner Type: Progress Notes Filed: 07/09/2021 6:07 PM Note Text: Connected Care Unit Progress Note Patient Name: Andrew Sifuentes Patient Facility: [facility] Admit Date 06/28/2021 Level of Care: Skilled [...] but nursing notes it was drawn by furnace combustion tester as vancomycin was being infused; reordered trough - PICC Line Intact - No fevers or chills per patient or staff (R53.81) Debility - Certify therapies - Maintain high falls risk precautions - pt/staff verbalize understanding validated via teach back - Monitor safety awareness Appointments for Next 60 Days Date Time Provider Location Dept Phone 07/21/2021 11:00 AM NICOLE LIM [phone] HPI: (Per Dr. Beltran) Andrew Sifuentes is being seen today for prison facility (SNF) admission AND management of weakness, tube feed, infected retroperitoneal infection and seizure. ? This is a 71 year old male who presents from [facility] with primary admitting diagnosis of [...] CT brain concerning for hydrocephalus. 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 OBJECTIVE: Labs/diagnostics: 07/04/2021 Glucose=91 Da=586 K=3.8 Or=557 CO2=24 BUN=14 Creatinine=0.5 YWS=581 Ca=9.0 Protein,Total=6.7 Albumin=3.6 MgjJxtg=692 AST=15 ALT=21 Bilirubin,Totall=0.5 WBC=10.7 RBC=4.04 Hgb=10.9 Hct=35.3 Utdpxbsj=053 VancomycinTr (more content not included)...[facility]02-24-2022 NoteHNO ID: [id number] Author: Sukhi Chery APRN.KIM Service: ? Author Type: Nurse Practitioner Type: Progress Notes Filed: 07/09/2021 5:43 PM Note Text: Connected Care Unit Progress Note Patient Name: Andrew Sifuentes Patient Facility: [facility] Admit Date 06/28/2021 Level of Care: Skilled [...] Phone 07/21/2021 11:00 AM NICOLE LIM GENERA [phone] HPI: (Per Dr. Beltran) Andrew Sifuentes is being seen today for prison facility (SNF) admission AND management of weakness, tube feed, infected retroperitoneal infection and seizure. ? This is a 71 year old male who presents from [facility] with primary admitting diagnosis of [...] CT brain concerning for hydrocephalus. 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 OBJECTIVE: Labs/diagnostics: 07/01/2021 Glucose=83 Fr=231 K=4.1 Ul=828 CO2=27 BUN=22 Creatinine=0.6 ZMW=228 Ca=8.7 WBC=10.8 RBC=3.40 Hgb=9.3 Hct=29.9 Uswvfemj=412 Vital Signs: BP 128/80 Pulse 77 Temp 36.7 ?C (98 ?F) Resp 20 Ht 182.9 cm (6') Wt 113 kg (249 lb 3.2 oz) SpO2 96% BMI 33.80 kg/m? Physical Exam: Physical Exam Vitals reviewed. Constitutional: General: He is not in acute distress. (more content not included)...[facility]02-22-2022 [facility]02-22-2022 [facility]02-21-2022 [facility]02-21-2022 Note [facility]02-20-2022 [facility] 06-26-2021 [facility]02-19-2022 [facility]02-19-2022 [facility]02-18-2022 [facility]02-18-2022 [facility]02-18-2022 [facility]02-17-2022 [facility]02-17-2022 Note [facility]02-17-2022 [facility] 06-22-2021 NoteHNO ID: [id number] Author: Xiomy England RN Service: Nursing Author Type: Registered Nurse Type: Nursing Progress Note Filed: 06/22/2021 7:22 PM Note Text: RT contacted as pt has wheezing auscultated and same auditory. For prn Treatment.[facility]02-16-2022 [facility]02-16-2022 [facility]02-16-2022 [facility]02-16-2022 [facility]02-16-2022 [facility]02-15-2022 [facility]02[facility]15-2022 Note [facility]02-15-2022 [facility] 06-21-2021 [facility]02-14-2022 [facility]02-14-2022 [facility]02-14-2022 [facility]02-14-2022 [facility]02[facility]14-2022 [facility]02-13-2022 [facility]02-13-2022 Note [facility]02-13-2022 [facility] 06-19-2021 [facility]02-13-2022 [facility]02-12-2022 [facility]02-12-2022 [facility]02-12-2022 [facility]02-12-2022 [facility]02-12-2022 [facility]02-12-2022 Note [facility]02-12-2022 NoteHNO ID: [id number] Author: Ambar Note Service: ? Author Type: ? Type: Progress Notes Filed: 06/18/2021 3:10 AM Note Text: Epic Scheduled Downtime: 06/18/2021 1:00:00 AM to 06/18/2021 2:27:[facility] Note [facility]02-11-2022 [facility] 06-17-2021 [facility]02-11-2022 [facility]02-11-2022 [facility]02-10-2022 [facility]02-10-2022 [facility]02-10-2022 [facility]10-20[facility]02-10-2022 [facility]02-10-2022 [facility] 06-15-2021 [facility]02-09-2022 NoteHNO ID: [id number] Author: Lamonte Kline DO Service: Neurology ICU Author Type: Resident Type: Plan of Care Filed: 06/15/2021 6:21 PM Note Text: Patient's daughter Melissa updated on plan of care and critical condition, all questions answered.[facility]02-09-2022 [facility]02-09-2022 [facility]02-09-2022 [facility]02-09-2022 [facility]02-09-2022 Note [facility]02-09-2022 [facility] 06-15-2021 [facility]02-08-2022 [facility]02-08-2022 [facility]02[facility]08-2022 [facility]02-08-2022 [facility]02-07-2022 [facility]02-07-2022 [facility]02-07-2022 Note [facility]02-07-2022 [facility] 06-12-[facility]02[facility]05-2022 [facility]02-05-2022 [facility]02-04-2022 [facility]02-04-2022 [facility]02-04-2022 Note [facility]02-04-2022 [facility] 06-09-2021 [facility]02-03-2022 [facility]02-03-2022 [facility]02-03-2022 [facility]02-02-2022 [facility]02-02-2022 NoteHNO ID: [id number] Author: Luis Diaz RN Service: ? Author Type: Registered Nurse Type: Nursing Progress Note Filed: 06/08/2021 9:23 AM Note Text: Patient off the floor to OR at this time.[facility]02-02-2022 [facility]02-02-2022 [facility] 06-08-2021 NoteHNO ID: [id number] Author: Eloise Samuel RN Service: ? Author Type: Registered Nurse Type: Nursing Progress Note Filed: 06/08/2021 12:46 AM Note Text: Dr. Brito notified of changes throughout shift. No new [facility] 06-07-2021 NoteHNO ID: [id number] Author: Eloise Samuel RN Service: ? 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 No new orders at this time.[facility]02-01-2022 [facility]02-01-2022 [facility]02-01-2022 [facility]02-01-2022 [facility]01-31-2022 [facility]01-31-2022 [facility]01-31-2022 Note [facility]01-31-2022 [facility] 06-05-2021 [facility]01-30-2022 [facility]01-30-2022 [facility]01-29-2022 [facility]01-29-2022 NoteHNO ID: [id number] Author: Jermaine Miller PA-C Service: Neurosurgery Author Type: Physician Donor Processor Type: Plan of Care Filed: 06/04/2021 1:59 PM Note Text: Discussed with Dr. Charles CT brain results. At this time, continue with EVD at 5 [facility]01-29-2022 [facility] 06-04-2021 [facility]01-28-2022 [facility]01-28-2022 NoteHNO ID: [id number] Author: Mauricio Frank DO Service: Neurology ICU Author Type: Physician Type: Plan of Care Filed: 06/03/2021 2:38 PM Note Text: I spoke with Melissa and updated her over the phone. Mauricio Frank, [facility]01-28-2022 [facility]01-28-2022 [facility]01-27-2022 [facility]01-27-2022 [facility]01-27-2022 Note [facility]01-26-2022 [facility] 06-01-2021 [facility]01-26-2022 [facility]01-26-2022 [facility]01[facility]26-2022 [facility]01-25-2022 [facility]01[facility]25-2022 [facility]01-25-2022 [facility]01-25-2022 Note [facility]01-25-2022 [facility] 05-31-2021 [facility] Leg swelling- Primary Swelling of limb Acute deep vein thrombosis (DVT) of proximal vein of lower extremity, unspecified laterality (HCC) DVT, lower extremity, recurrent, unspecified laterality (HCC) Moderate malnutrition (HCC) Malnutrition of moderate degree History of seizures Personal history of other disorders of nervous system and sense organs documented in this encounter [facility] Work Phone: Evaluation noteNo assessment information available [facility] Work Phone: Evaluation note* Diagnosis Other fatigue- Primary documented in this encounter [facility] Work Phone: Evaluation note* Diagnosis Heel ulceration, left, with unspecified severity (HCC)- Primary documented in this encounter [facility] Work Phone: Evaluation note* Diagnosis Fall, initial encounter- Primary Anticoagulated Encounter for long-term (current) use of anticoagulants documented in this encounter [facility] Work Phone: Evaluation note* Diagnosis Left flank pain- Primary Abdominal pain, unspecified site Calculus of ureter Disease of prostate Unspecified disorder of prostate BPH with urinary obstruction Hypertrophy of prostate with urinary obstruction and other lower urinary tract symptoms (LUTS) [facility]* Diagnosis Left flank pain Abdominal pain, unspecified site Calculus of ureter [facility]* Diagnosis Left flank pain- Primary Abdominal pain, unspecified site BPH with urinary obstruction Hypertrophy of prostate with urinary obstruction and other lower urinary tract symptoms (LUTS) History of kidney stones [facility] Health[facility]* Name Dates Details Instructions not documented [facility] Work Phone: Instructions* Name Dates Details Instructions not documented [facility] [address] [place] Work Phone: Reason for referral (narrative)No reason for referral information availableOhio [facility] Work Phone: Advance Directives No Advanced Directives Records FoundDocuments on File Type Date Recorded Patient Dyer And Washer Expl anation Advance Directives and Living Will Power of Vegetable Picker Documents on File Type Date Recorded Patient Dyer And Washer Expl anation Advance Directive(s) 06/02/2021 2:45 PM [...] Maker Relationship: 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 Adult Children (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) Documents on File Type Date Recorded Patient Dyer And Washer Expl anation ACP-Advance Directive ACP-Power of Vegetable Picker Latest Code Status on File Code Status Date Activated Date Inactivated Comments Full Code 10/21/2021 4:09 AM Healthcare Agents on File Name Relationship Healthcare Agent Relationshi p Communication Melissakb Dengyer Child Primary Decision Maker deann Gurpreet Child Secondary Decision Maker Documents on File Type Date Recorded Patient Dyer And Washer Expl anation ACP-Advance Directive ACP-Power of Vegetable Picker ACP-Do Not Resuscitate 11/01/2021 7:03 AM Latest Code Status on File Code Status Date Activated Date Inactivated Comments Full Code 10/21/2021 4:09 AM 10/29/2021 7:25 PM Healthcare Agents on File Name Relationship Healthcare Agent Relationshi p Communication Melissakb Dengyer Child Primary Decision Maker deann Gurpreet Child Secondary Decision Maker Documents on File Type Date Recorded Patient Dyer And Washer Expl anation ACP-Do Not Resuscitate 11/03/2021 10:15 AM ACP-Do Not Resuscitate 11/01/2021 7:03 AM Healthcare Agents on File Name Relationship Healthcare Agent Relationshi p Communication Melissa Gurpreet Child Primary Decision Maker deann Gurpreet Child Secondary Decision Maker Documents on File Type Date Recorded Patient Dyer And Washer Expl anation ACP-Do Not Resuscitate 11/03/2021 10:15 [...] Documents on File Type Date Recorded Patient Dyer And Washer Expl anation DNR (Do Not Resuscitate) 10/31/2021 DNR (Do Not Resuscitate) 10/21/2021 Documents on File Type Date Recorded Patient Dyer And Washer Expl anation DNR (Do Not Resuscitate) 10/31/2021 [...] 2024 5:00am [facility] WORK April 04 5:00am LABWORK April 07, 2024 5 :00am [facility] WORK April 10, 2024 5:00am [facility] WORK April 14, 2024 5:00am [facility] WORK April 17 5:00am LABWORK April 21, 2024 5:00am [facility] WORK April 24 4:00am LABWORK April 28, 2024 5:00am [facility] WORK May 01 4:00am [facility] WORK May 05 4 5:00am [facility] WORK May 08, 2024 [...] WORK June 30 5:00am [facility] WORK February 27th, 202 5 5:00am J[facility] WORK July 07, 2024 [...] Urology Diagnoses Other fatigue Lanette Munguia DO [address] [place] [address] [facility] [address] [place] [id number] Referral ID Status Reason Start Date Expiration Date V isits Requested Visits Authorized [id number] Open Specialty Services Required 11/01/2021 11/01/2022 1 1 Scheduling Instructions [facility] [place] [address] Specialty Diagnoses / Procedures Referred By Aki kumari Referred To Contact IP Unit Diagnoses Heel ulceration, left, with unspecified severity (HCC) Henry Hidalgo PA [address] [place] [address] [facility] [address] [place] [address] Referral ID Status Reason Start Date Expiration Date V isits Requested Visits Authorized [id number] Open Specialty Services Required 12/22/2021 12/22/2022 1 1 Scheduling Instructions [facility] [address] [place] [address] Comments Please use the parking lot located on [employer] or [employer]. There are handicap parking spots located in a small lot beside the wound care entrance off of [address]. Please be advised there is a small incline from those handicap spots to our main door. Bring photo ID and insurance card to photocopy. Wear loose fitting clothing (to easily access wound). Bring list of medications (or can be sent by office). Check in at Registration for your first visit. Please call us directly with any questions [phone]. We look forward to helping you heal. Specialty Diagnoses / Procedures Referred By Contdesiree t Referred To Contact Radiology Diagnoses Left flank pain Calculus of ureter Procedures CT abdomen pelvis wo IV contrast Rebecca Buck MD [address] [place] [address] Referral ID Status Reason Start Date Expiration Date V isits Requested Visits Authorized [id number] Pending Review 08/13/2023 08/12/2024 1 1 Referral ID Status Reason Start Date Expiration Date Visits Re quested Visits Authorized [id number] Closed 08/17/2023 09/16/2023 1 1 Additional Source Comments Source Comments (unrecognize d section and content) In the event this informatio n is protected by the Federal Confidentiality of Alcohol and Drug Abuse Patient Records regulations: The Federal rules restrict any use of the information to criminally investigate or prosecute any alcohol or drug abuse patient.[facility] Hospital[facility] the event this information is protected by the Federal Confidentiality of Alcohol and Drug Abuse Patient Records regulations: The Federal rules restrict any use of the information to criminally investigate or prosecute any alcohol or drug abuse patient.[facility] (unrecognized sect ion and content) No Status Records FoundNo Status Records FoundNo Status Records FoundNo Status Records FoundNo Status Records FoundNo Status Records FoundNo Status Records FoundNo Status Records FoundNo Status Records FoundNo Status Records Found INFORMATION SOURCE (unrecogn ized section and content) DATE CREATED AUTHOR 05/20/2021 [facility] DATE CREATED AUTHOR AUTHOR'S ORGANIZ ATION 06/07/2021 [facility] DATE CREATED AUTHOR AUTHOR'S ORGANIZ ATION 08/02/2021 [facility] DATE CREATED AUTHOR AUTHOR'S ORGANIZ ATION 12/09/2021 [facility] DATE CREATED AUTHOR AUTHOR'S ORGANIZ ATION 12/29/2021 [facility] DATE CREATED AUTHOR AUTHOR'S ORGANIZ ATION 02/04/2022 [facility] DATE CREATED AUTHOR AUTHOR'S ORGANIZ ATION 03/03/2022 [facility] DATE CREATED AUTHOR AUTHOR'S ORGANIZ ATION 09/15/2023 [facility] DATE CREATED AUTHOR AUTHOR'S ORGANIZ ATION 03/18/2025 [facility] Reason for Visit (unrecogniz ed section and content) Reason Comments Missed Appointment Reason Comments Leg Swelling Blood clots Reason Comments Altered Mental Status Pt presents to ED via [facility] for complaint listed. Pt is from [facility]. Pt's LKW was 1000 hours today. Per EMS, pt had a - [place]. Pt denies CP, SOB, and N/V. Pt seems slow to respond, slightly confused at this time. Reason Comments Osteomyelitis Patient from [facility] did xrays on left lower leg and and have concerns for possible osteomyelitis A&Ox2 to self and place, stated year 2022 preside Miss martini Reason Comments Fall Patient had unwitnes sed fall at [facility] landed on butt. Is on thinners, denies [...] Buck MD [address] [place] [address] Referral ID Status Reason Start Date Expiration Date Visits Re quested Visits Authorized [id number] Closed 08/17/2023 09/16/2023 1 1 Reason Comments [...] 09, 2024 End: May 09, 2024 Dr. vKng NOVAK MD Referring Provider [...] Status Dates Carlos NOVAK Attending Provider Active Flatwork Catcher Relationship Specialty Start Date End Date Mateus Burris [address] [place] [address] PCP - General Family Practice 11/12/19 Flatwork Catcher Relationship Specialty [place] [address] [place] [address] PCP - General Family Medicine 09/09/20 Flatwork Catcher Relationship Specialty [place] [address] [place] [address] PCP - General Family Medicine 09/09/20 Flatwork Catcher Relationship Specialty [place] [address] [place] [address] PCP - General Family Medicine 09/09/20 Flatwork Catcher Relationship Specialty Start Date End Date Carlos Cavazos MD [address] [place] [address] PCP - General Internal Medicine 02/20/22 Team [...] Monika Staley MD Primary Care Provider Active Flatwork Catcher Relationship Specialty Start Date End Date Carlos Cavazos [address] [place] [phone] PCP - General 12/21/21 Rebecca Buck MD [address] [place] [address] Surgeon Urology 06/25/23 Team Status: Inactive Member [...] NOVAK Attending Provider, Referring Provi lupillo Active Flatwork Catcher Relationship Specialty Start Date End Date Carlos Cavazos [address] [place] [phone] PCP - General 12/21/21 Rebecca Buck MD [address] [address] Surgeon Urology 06/25/23 Flatwork Catcher Relationship Specialty Start Date End Date Carlos Cavazos [address] [place] [phone] PCP - General 12/21/21 Rebecca Buck MD [address] [address] Surgeon Urology 06/25/23 Flatwork Catcher Relationship Specialty Start Date End Date Carlos Cavazos [address] [place] [phone] PCP - General 12/21/21 Rebecca Buck MD [address] [address] Surgeon Urology 06/25/23 Flatwork Catcher Relationship Specialty Start Date End Date Carlos Cavazos [address] [place] [phone] PCP - General 12/21/21 Rebecca Buck MD [address] [address] Surgeon Urology 06/25/23 Flatwork Catcher Relationship Specialty Start Date End Date Carlos [facility] [address] [place] [id number] PCP - General 12/21/21 Rebecca Buck MD [address] [id number] Surgeon Urology 06/25/23 [employer]work Catcher Relationship Specialty Start Date End Date Carlos Cavazos [address] [place] [id number] PCP - General 12/21/21 Rebecca Buck MD [address] [id number] Surgeon Urology 06/25/23 Team Status: Inactive Member Role Status Dates Dr. Monika Staley MD Primary Care Provider Active Start: March 13, 2024 End: March 13, 2024 [facility] Attending Provider Active Start: March [...] 17, 2024 End: March 17, 2024 [facility] Attending Provider Active Start: March 17, 2024 End: March 17, 2024 Team Status: Inactive Member Role Status Dates Dr. Monika Staley MD Primary Care Provider Active Start: March 18, 2024 End: March 18, 2024 [facility] Attending Provider Active Start: March [...] 20, 2024 End: March 20, 2024 [facility] Attending Provider Active Start: March [...] 27, 2024 End: March 27, 2024 [facility] Attending Provider Active Start: March [...] Provider Active Start: July 07, 2024 [facility] Attending Provider Active Start: July [...] Status: Active Member Role/Relationship Status Dates Dr. Mnoika Staley [...] physician Activ e Start: November 03, 2024 Carlso NOVAK Attending physician Active St art: November [...] mg, Oral, ONCE Warfarin, 1 dose, On Rust 10/29/21 at 1800, Indication of Use: Treatment-DVT/PE, [...] BE BASED ON THE PRIMARY CLINICAL RECORDS. [facility]. provides no warranty or guarantee of the accuracy or completeness of information in this document.
[2025-04-24 08:02] LABS: Hematocrit 37.2 % (40-54); Hemoglobin 11.8 g/dL (13.0-16.5); Immature Granulocytes Count 0.050 X10^3/uL (0.0-0.0); Mean Corp Hgb Conc 31.7 g/dL (32-36); Mean Corpuscular Volume 84.9 fL (80-94); Mean Platelet Vol. 10.0 fl (6.2-12.0); NRBC Flagged by Analyzer 0 % (0-5); POSITIVE DIFFERENTIAL YES; POSITIVE MORPHOLOGY YES; Platelet Count 290 K/mm3 (150-450); RBC Distribution Width CV 16.5 % (11.6-14.6); RBC Distribution Width SD 50.8 fl (35.1-43.9); Red Blood Count 4.38 M/mm3 (4.6-6.2); White Blood Count 18.7 K/mm3 (4.4-11.0)
[2025-04-24 08:10] LABS: Differential Indicated SCAN CRITERIA MET
[2025-04-24 08:27] LABS: AST(SGOT) 34 U/L (<=37); Alanine Aminotransfer ALT/SGPT 41 U/L (<=46); Albumin, Serum 3.4 g/dL (3.4-4.8); Alkaline Phosphatase 76 U/L (40-129); Anion Gap 11 (5-15); BUN 17 mg/dL (4-19); BUN/Creat Ratio 23.0 RATIO (10-20); Calcium,Total 8.6 mg/dL (7.6-11.0); Carbon Dioxide 24.0 mmol/L (21.0-32.0); Chloride 104 mmol/L (98-108); Globulin 3.1 g/dL (2.2-4.2); Glucose 89 mg/dL (70-99); Potassium 4.1 mmol/L (3.3-5.1)
== END ==
LOC: OLS.SANC 05:00
PROVIDERS: PCP General Practice; Visit Provider Internal Medicine
DX: I11.0 Hypertensive heart disease with heart failure (principal); I50.9 Heart failure, unspecified; E87.6 Hypokalemia; Z79.01 Long term (current) use of anticoagulants; Z79.899 Other long term (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
CPT/HCPCS: 36415; 80053; 85025

== ENCOUNTER → 2025-04-27 05:00 | Outpatient (REF) | payer MEDICARE, MEDICAID, SELFPAY ==
--- OUTSIDE RECORDS SUMMARY | 2025-04-27 03:58 | XMS RPT_ITS | CCD ---
Author Organization [facility] Care Team Providers Care Hospital Coder Name Role Phone Mateus Burris Primary Care [...] Unavailable Carlos Cavazos MD Primary Care Provider [phone] PROVIDER, UNKNOWN Primary Care Unavailable PROVIDER, UNKNOWN [...] Care Unavailable REBECCA BUCK Attending Unavailable KENNY, CARLSO Primary Care Unavailable Luís VALLADARES, Dr. Monika Horner Primary Care Provider [facility] Attending Provider [phone] Carlos Nelson Attending Provider Jonh Pascual MD, [...] Jonh Cardoza MD, Dr. Monika Horner Primary [facility] Physician Karon Corrales MD Attending Physician Unav ailCarlos Anglin Attending Physician Camelia Corrales MD, Karon Referring Provider Unava evan Staley MD, Dr. Monika Horner Primary [facility] Physician Carlos Nelson Attending Physician Unavailvanessa Corrales [...] Unavailable Crisostomo OLS, Babbaljeet Attending Unavailable Luís, Sihela Primary Care Unavailable Katsaros OLS, Carlos Attending [...] Care Unavailable Katsaros OLS, Peter Attending Unavailable Líus, Shiela Primary Care Unavailable Katsaros OLS, Peter [...] OLS, Mahaveer Attending Unavail able [facility] [place] Attending Unavai lable Luís, Shiela Primary Care Unavailable Crisostomo OLS, Babbaljeet Attending Unavailable Luís, Shiela Primary Care Unavailable [facility] [place] Attending Unavai lable Luís, Shiela Primary Care [...] Unavailable MukkKaron Hoover Attending Unavail able Luís, [facility] Primary Care Unavailable NubiaKaron Stacy Attending Unavail able Luís, Shiela Primary Care Unavailable NubiaKaron Stacy Attending Unavail able Luís, [facility] Primary Care Unavailable MaribelCarlos Flood Attending Unavailable [place], [facility] Unavailable Allergies Allergy Classification Reported Allergen(s) Allergy Type Date of Onset Reaction(s) Facility (13 sources) [facility]: (15 sources) Alcohol Propensity to adverse reactions to drug 3 Rash, Hives, Other: See Comments, Other [facility] Work Phone: (1 source) Latex Drug Allergy 0 Rash [facility] (8 sources) Cortisone Drug Allergy 2 [facility] (7 sources) Latex Allergy to substance 0 Rash [facility] Medications Current Medications Medication Drug Class(es) Dates Sig (Normalized) Sig (Original) Acetaminophen (10 sources) Start: 10-21-2021 acetaminophen (TYLENOL) tablet 650 mg Start: 09-14-2021 acetaminophen (TYLENOL) 325 MG tablet 650 mg every 6 hours as needed 0 09/14/2021 Active take 2 tablets by [facility] every eight hours [...] Start: 11-01-2021 take 1 capsule by [facility] once daily tamsulosin (FLOMAX) 0.4 [...] Comment on above: [facility]. Antacid TABS (6 [...] Comment on above: Take 1 capsule by [facility] three times daily. Complete Multi-Vitamin [...] once daily. Pentoxifylline (1 source) Blood Viscosity Drywall Foreman PENTOXIFYLLINE ORAL Take by mouth. 0 Active Comment on above: Take by mouth. petrolatum 0.41 mg/mg topical ointment (1 source) Start : 08-20 white petrolatum (AQUAPHOR) 41 % topical ointment Apply to affected area once daily. 0 08/20/2021 Active Comment on above: Apply to affected ar ea once daily. 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, [address] PT Coag (PPP) [Time] 25.1 s High 11.7-14.9 [facility] Comment on above: Order Comment: 411-2 Performed By: #### L 300.3900 ####[facility] [address] [place], [address] Prothrombin Time w/INRon INR Coag (PPP) [Relative time] 2.3 {INR} Normal [facility] Comment on above: Order Comment: 411-2 Performed By: #### L 300.3900 ####[facility] [address] [place], [address] PT Coag (PPP) [Time] 25.5 s High 11.7-14.9 [facility] Comment on above: Order Comment: 411-2 Performed By: #### L 300.3900 ####[facility] [address] [place], [address] Prothrombin Time w/INRon INR Coag (PPP) [Relative time] 2.0 {INR} Normal [facility] Comment on above: Order Comment: 411.2 Performed By: #### L 300.3900 ####[facility] [address] [place], [address] PT Coag (PPP) [Time] 22.8 s High 11.7-14.9 [facility] Comment on above: Order Comment: 411.2 Performed By: #### L 300.3900 ####[facility] [address] [place], [address] Prothrombin Time w/INRon INR Coag (PPP) [Relative time] 1.7 {INR} Normal [facility] Comment on above: Order Comment: 411-2 Performed By: #### L 300.3900 ####[facility] [address] [place], [address] PT Coag (PPP) [Time] 20.5 s High 11.7-14.9 [facility] Comment on above: Order Comment: 411-2 Performed By: #### L 300.3900 ####[facility] [address] [place], [address] Prothrombin Time w/INRon INR Coag (PPP) [Relative time] 1.5 {INR} Normal [facility] Comment on above: Order Comment: 411.2 Performed By: #### L 300.3900 ####[facility] [address] [place], [address] PT Coag (PPP) [Time] 18.4 s High 11.7-14.9 [facility] Comment on above: Order Comment: 411.2 Performed By: #### L 300.3900 ####[facility] [address] [place] [place], [address] Prothrombin Time w/INRon INR Coag (PPP) [Relative time] 1.8 {INR} Normal [facility] Comment on above: Order Comment: 411.2 Performed By: #### L 300.3900 ####[facility] [address] [place], [address] PT Coag (PPP) [Time] 21.2 s High 11.7-14.9 [facility] Comment on above: Order Comment: 411.2 Performed By: #### L 300.3900 ####[facility] [address] [place], [place], [phone] International normalized rat io (INR) calculationOrdered By: Carlos Cavazos on 03-02-2025 INR Coag (Bld) [Relative time] 2.2 {INR} [facility] Prothrombin Time w/INRon INR Coag (PPP) [Relative time] 2.2 {INR} Normal [facility] Comment on above: Order Comment: 411-2 Performed By: #### L 300.3900 ####[facility] [address] [place], [place], [phone] Prothrombin timeOrdered By: Carlos Cavazos on 03-02-2025 PT Coag (PPP) [Time] 25.3 s High 11.7-14.9 [facility] Comment on above: Order Comment: 411-2 Performed By: #### L 300.3900 ####[facility] [address] [place], [place], [phone] International normalized rat io (INR) calculationOrdered By: Karon Corrales on 02-26-2025 INR Coag (Bld) [Relative time] 2.2 {INR} [facility] Prothrombin Time w/INRon INR Coag (PPP) [Relative time] 2.2 {INR} Normal [facility] Comment on above: Order Comment: 411.2 Performed By: #### L 300.3900 ####[facility] [address] [place], [address] PT Coag (PPP) [Time] 24.5 s High 11.7-14.9 [facility] Comment on above: Order Comment: 411.2 Performed By: #### L 300.3900 ####[facility] [address] [place], [place], [phone] Prothrombin timeOrdered By: Karon Corrales on 02-26-2025 PT Coag (PPP) [Time] 24.5 s High 11.7-14.9 [facility] International normalized rat io (INR) calculationOrdered By: Karon Corrales on 02-23-2025 INR Coag (Bld) [Relative time] 2.0 {INR} [facility] Prothrombin Time w/INRon INR Coag (PPP) [Relative time] 2.0 {INR} Normal [facility] Comment on above: Order Comment: 411.2 Performed By: #### L 300.3900 ####[facility] [address] [place], [place], [address] PT Coag (PPP) [Time] 23.5 s High 11.7-14.9 [facility] Comment on above: Order Comment: 411.2 Performed By: #### L 300.3900 ####[facility] [address] [place], [place], [address] Prothrombin timeOrdered By: Karon Corrales on 02-23-2025 PT Coag (PPP) [Time] 23.5 s High 11.7-14.9 [facility] International normalized rat io (INR) calculationOrdered By: Karon Corrales on 02-19-2025 INR Coag (Bld) [Relative time] 1.9 {INR} [facility] Prothrombin Time w/INRon INR Coag (PPP) [Relative time] 1.9 {INR} Normal [facility] Comment on above: Order Comment: 411.2 Performed By: #### L 300.3900 ####[facility] [address] [place], [address]) PT Coag (PPP) [Time] 21.8 s High 11.7-14.9 [facility] Comment on above: Order Comment: 411.2 Performed By: #### L 300.3900 ####[facility] [address] [place], [place], [address] Prothrombin timeOrdered By: Karon Corrales on 02-19-2025 PT Coag (PPP) [Time] 21.8 s High 11.7-14.9 [facility] International normalized rat io (INR) calculationOrdered By: Karon Corrales on 02-16-2025 INR Coag (Bld) [Relative time] 1.5 {INR} [facility] Prothrombin Time w/INRon INR Coag (PPP) [Relative time] 1.5 {INR} Normal [facility] Comment on above: Order Comment: 411.2 Performed By: #### L 300.3900 ####[facility] [address] [place], [place], [address] PT Coag (PPP) [Time] 18.6 s High 11.7-14.9 [facility] Comment on above: Order Comment: 411.2 Performed By: #### L 300.3900 ####[facility] [address] [place], [place], [address] Prothrombin timeOrdered By: Karon Corrales on 02-16-2025 PT Coag (PPP) [Time] 18.6 s High 11.7-14.9 [facility] International normalized rat io (INR) calculationOrdered By: Karon Corrales on 02-12-2025 INR Coag (Bld) [Relative time] 2.5 {INR} [facility] Prothrombin Time w/INRon INR Coag (PPP) [Relative time] 2.5 {INR} Normal [facility] Comment on above: Order Comment: 411.2 Performed By: #### L 300.3900 ####[facility] [address] [place], [address] PT Coag (PPP) [Time] 27.5 s High 11.7-14.9 [facility] Comment on above: Order Comment: 411.2 Performed By: #### L 300.3900 ####[facility] [address] [place], [address] Prothrombin timeOrdered By: Karon Corrales on 02-12-2025 PT Coag (PPP) [Time] 27.5 s High 11.7-14.9 [facility] International normalized rat io (INR) calculationOrdered By: Carlos Cavazos on 02-09-2025 INR Coag (Bld) [Relative time] 2.5 {INR} [facility] Prothrombin Time w/INRon INR Coag (PPP) [Relative time] 2.5 {INR} Normal [facility] Comment on above: Order Comment: 411-2 Performed By: #### L 300.3900 ####[facility] [address] [place], [address] INR Normal [facility] Comment on above: Order Comment: 411.2 Result Comment: MISS ING TUBE Performed By: #### L 300.3900 ####[facility] [address] [place], [address] PROTIME Normal 11.7-14.9 [facility] Comment on above: Order Comment: 411.2 Result Comment: MISS ING TUBE Performed By: #### L 300.3900 ####[facility] [address] [place], [address] Prothrombin timeOrdered By: Carlos Cavazos on 02-09-2025 PT Coag (PPP) [Time] 27.2 s High 11.7-14.9 [facility] Comment on above: Order Comment: 411-2 Performed By: #### L 300.3900 ####[facility] [address] [place], [address] International normalized rat io (INR) calculationOrdered By: Karon Corrales on 02-05-2025 INR Coag (Bld) [Relative time] 2.5 {INR} [facility] Prothrombin Time w/INRon INR Coag (PPP) [Relative time] 2.5 {INR} Normal [facility] Comment on above: Order Comment: 411.2 Performed By: #### L 300.3900 ####[facility] [address] [place], [address] PT Coag (PPP) [Time] 27.6 s High 11.7-14.9 [facility] Comment on above: Order Comment: 411.2 Performed By: #### L 300.3900 ####[facility] [address] [place], [place], [phone] Prothrombin timeOrdered By: Karon Corrales on 02-05-2025 PT Coag (PPP) [Time] 27.6 s High 11.7-14.9 [facility] International normalized rat io (INR) calculationOrdered By: Karon Corrales on 02-02-2025 INR Coag (Bld) [Relative time] 2.4 {INR} [facility] Prothrombin Time w/INRon INR Coag (PPP) [Relative time] 2.4 {INR} Normal [facility] Comment on above: Order Comment: 411.2 Performed By: #### L 300.3900 ####[facility] [address] [place], [address] PT Coag (PPP) [Time] 26.8 s High 11.7-14.9 [facility] Comment on above: Order Comment: 411.2 Performed By: #### L 300.3900 ####[facility] [address] [place], [place], [phone] Prothrombin timeOrdered By: Karon Corrales on 02-02-2025 PT Coag (PPP) [Time] 26.8 s High 11.7-14.9 [facility] International normalized rat io (INR) calculationOrdered By: Karon Corrales on 01-29-2025 INR Coag (Bld) [Relative time] 2.7 {INR} [facility] Prothrombin Time w/INRon INR Coag (PPP) [Relative time] 2.7 {INR} Normal [facility] Comment on above: Performed By: #### L 300.3900 ####[facility] [address] [place], [place], [phone]) PT Coag (PPP) [Time] 29.1 s High 11.7-14.9 [facility] Comment on above: Performed By: #### L 300.3900 ####[facility] [address] [place], [place], [phone]) Prothrombin timeOrdered By: Karon Corrales on 01-29-2025 PT Coag (PPP) [Time] 29.1 s High 11.7-14.9 [facility] International normalized rat io (INR) calculationOrdered By: Karon Corrales on 01-26-2025 INR Coag (Bld) [Relative time] 2.0 {INR} [facility] Prothrombin Time w/INRon INR Coag (PPP) [Relative time] 2.0 {INR} Normal [facility] Comment on above: Order Comment: 411.2 Performed By: #### L 300.3900 ####[facility] [address] [place], [place], [phone]) PT Coag (PPP) [Time] 23.1 s High 11.7-14.9 [facility] Comment on above: Order Comment: 411.2 Performed By: #### L 300.3900 ####[facility] [address] [place], [place], [phone]) Prothrombin timeOrdered By: Karon Corrales on 01-26-2025 PT Coag (PPP) [Time] 23.1 s High 11.7-14.9 [facility] International normalized rat io (INR) calculationOrdered By: Karon Corrales on 01-22-2025 INR Coag (Bld) [Relative time] 2.4 {INR} [facility] Prothrombin Time w/INRon INR Coag (PPP) [Relative time] 2.4 {INR} Normal [facility] Comment on above: Order Comment: 411.2 Performed By: #### L 300.3900 ####[facility] [address] [place], [address] PT Coag (PPP) [Time] 26.6 s High 11.7-14.9 [facility] Comment on above: Order Comment: 411.2 Performed By: #### L 300.3900 ####[facility] [address] [place], [address] Prothrombin timeOrdered By: Karon Corrales on 01-22-2025 PT Coag (PPP) [Time] 26.6 s High 11.7-14.9 [facility] International normalized rat io (INR) calculationOrdered By: Carlos Cavazos on 01-19-2025 INR Coag (Bld) [Relative time] 2.7 {INR} [facility] Prothrombin Time w/INRon INR Coag (PPP) [Relative time] 2.7 {INR} Normal [facility] Comment on above: Order Comment: 411-2 Performed By: #### L 300.3900 ####[facility] [address] [place], [address] PT Coag (PPP) [Time] 29.7 s High 11.7-14.9 [facility] Comment on above: Order Comment: 411-2 Performed By: #### L 300.3900 ####[facility] [address] [place], [address] Prothrombin timeOrdered By: Carlos Cavazos on 01-19-2025 PT Coag (PPP) [Time] 29.7 s High 11.7-14.9 [facility] International normalized rat io (INR) calculationOrdered By: Karon Corrales on 01-15-2025 INR Coag (Bld) [Relative time] 2.4 {INR} [facility] Prothrombin Time w/INRon INR Coag (PPP) [Relative time] 2.4 {INR} Normal [facility] Comment on above: Order Comment: 411.1 Performed By: #### L 300.3900 ####[facility] [address] [place], [place], [address] PT Coag (PPP) [Time] 26.6 s High 11.7-14.9 [facility] Comment on above: Order Comment: 411.1 Performed By: #### L 300.3900 ####[facility] [address] [place], [place], [address] Prothrombin timeOrdered By: Karon Corrales on 01-15-2025 PT Coag (PPP) [Time] 26.6 s High 11.7-14.9 [facility] KEPPRA (LEVETIRACETAM)on KEPPRA 30.1 ug/mL Normal 10.0-40.0 [facility] Comment on above: Order Comment: 411.1 Result Comment: Perf ormed at: [facility] [address] [id number] Director: Alpesh Vázquez MD, Phone: [phone] Performed By: #### L 0190.0000, O502.7313 ####[facility] [address] [place], [place], [address] International normalized rat io (INR) calculationOrdered By: Karon Corrales on 01-12-2025 INR Coag (Bld) [Relative time] 2.3 {INR} [facility] LevetiracetamOrdered By: Carla Corrales on 01-12-2025 levETIRAcetam [Mass/Vol] 30.1 ug/mL 10.0-40.0 [facility] Comment on above: Performed at: - [facility] [address] [id number] Director: Alpesh Vázquez MD, Phone: [phone] Prothrombin Time w/INRon INR Coag (PPP) [Relative time] 2.3 {INR} Normal [facility] Comment on above: Order Comment: 411.1 Performed By: #### L 3310.0000, L300.3900 ####[facility] [address] [place], [address] PT Coag (PPP) [Time] 26.1 s High 11.7-14.9 [facility] Comment on above: Order Comment: 411.1 Performed By: #### L 3310.0000, L300.3900 ####[facility] [address] [place], [address] Prothrombin timeOrdered By: Karon Corrales on 01-12-2025 PT Coag (PPP) [Time] 26.1 s High 11.7-14.9 [facility] KEPPRA (LEVETIRACETAM)on KEPPRA 27.6 ug/mL Normal 10.0-40.0 [facility] Comment on above: Order Comment: 411.1 Result Comment: Perf ormed at: - [facility] [address] [id number] Director: Alpesh Vázquez MD, Phone: [phone] Performed By: #### L 3310.0000, L300.3900 ####[facility] [address] [place], [address] International normalized rat io (INR) calculationOrdered By: Karon Corrales on 01-08-2025 INR Coag (Bld) [Relative time] 2.2 {INR} [facility] Prothrombin Time w/INRon INR Coag (PPP) [Relative time] 2.2 {INR} Normal [facility] Comment on above: Order Comment: 411.1 Performed By: #### L 300.3900 ####[facility] [address] [place], [address] PT Coag (PPP) [Time] 24.5 s High 11.7-14.9 [facility] Comment on above: Order Comment: 411.1 Performed By: #### L 300.3900 ####[facility] [address] [place], [address] Prothrombin timeOrdered By: Karon Corrales on 01-08-2025 PT Coag (PPP) [Time] 24.5 s High 11.7-14.9 [facility] International normalized rat io (INR) calculationOrdered By: Karon Corrales on 01-06-2025 INR Coag (Bld) [Relative time] 3.2 {INR} [facility] LevetiracetamOrdered By: Carla Corrales on 01-06-2025 levETIRAcetam [Mass/Vol] 27.6 ug/mL 10.0-40.0 [facility] Comment on above: Performed at: [address] [id number] Director: Alpesh Vázquez MD, Phone: [phone] Prothrombin Time w/INRon INR Coag (PPP) [Relative time] 3.2 {INR} Normal [facility] Comment on above: Order Comment: 411.1 Performed By: #### L 3310.0000, L300.3900 ####[facility] [address] [place], [address] PT Coag (PPP) [Time] 33.1 s High 11.7-14.9 [facility] Comment on above: Order Comment: 411.1 Performed By: #### L 3310.0000, L300.3900 ####[facility] [address] [place], [place], [address] Prothrombin timeOrdered By: Karon Corrales on 01-06-2025 PT Coag (PPP) [Time] 33.1 s High 11.7-14.9 [facility] International normalized rat io (INR) calculationOrdered By: Karon Corrales on 01-01-2025 INR Coag (Bld) [Relative time] 2.7 {INR} [facility] Prothrombin Time w/INRon INR Coag (PPP) [Relative time] 2.7 {INR} Normal [facility] Comment on above: Order Comment: 411.1 Performed By: #### L [id number] ####[facility] [address] [place], [place], [address] Prothrombin timeOrdered By: Karon Corrales on 01-01-2025 PT Coag (PPP) [Time] 29.1 s High 11.7-14.9 [facility] Comment on above: Order Comment: 411.1 Performed By: #### L [id number] ####[facility] [address] [place], [place], [address] KEPPRA (LEVETIRACETAM)on KEPPRA 31.8 ug/mL Normal 10.0-40.0 [facility] Comment on above: Order Comment: 411-1 Result Comment: Perf ormed at: - [facility] [place], [place] [id number] Director: Alpesh Vázquez MD, Phone: [phone] Performed By: #### L 3310.0000, L301.0915 ####[facility] [address] [place], [place], [address] International normalized rat io (INR) calculationOrdered By: Carlos Cavazos on 12-29-2024 INR Coag (Bld) [Relative time] 3.3 {INR} [facility] KEPPRA (LEVETIRACETAM)on KEPPRA 33.3 ug/mL Normal 10.0-40.0 [facility] Comment on above: Order Comment: 411.1 Result Comment: Perf ormed at: [employer] [facility] [address] [id number] Director: Alpesh Vázquez MD, Phone: [phone] Performed By: #### L 3310.0000 ####[facility] [address] [facility] [address] LevetiracetamOrdered By: Ted Cavazos on 12-29-2024 levETIRAcetam [Mass/Vol] 31.8 ug/mL 10.0-40.0 [facility] Comment on above: Performed at: [employer] [address] [id number] Director: Alpesh Vázquez MD, Phone: [phone] Prothrombin Time w/INRon INR Coag (PPP) [Relative time] 3.3 {INR} Normal [facility] Comment on above: Order Comment: 411-1 Performed By: #### L 3310.0000, L300.3900 ####[facility] [address] [place], [address] Prothrombin timeOrdered By: Carlos Cavazos on 12-29-2024 PT Coag (PPP) [Time] 34.0 s High 11.7-14.9 [facility] Comment on above: Order Comment: 411-1 Performed By: #### L 3310.0000, L300.3900 ####[facility] [address] [place], [place], [id number] LevetiracetamOrdered By: Carla Corrales on 12-26-2024 levETIRAcetam [Mass/Vol] 33.3 ug/mL 10.0-40.0 [facility] Comment on above: Performed at: [employer] [address], [place] [id number] Director: Alpesh Vázquez MD, Phone: [phone] International normalized rat io (INR) calculationOrdered By: Karon Corrales on 12-25-2024 INR Coag (Bld) [Relative time] 2.8 {INR} [facility] Prothrombin Time w/INRon INR Coag (PPP) [Relative time] 2.8 {INR} Normal [facility] Comment on above: Order Comment: 411.1 Performed By: #### L 300.3900 ####[facility] [address] [place], [address] Prothrombin timeOrdered By: Karon Corrales on 12-25-2024 PT Coag (PPP) [Time] 30.0 s High 11.7-14.9 [facility] Comment on above: Order Comment: 411.1 Performed By: #### L 300.3900 ####[facility] [address] [place], [address] Anion gap in Serum or Plasma Ordered By: Carlos Cavazos on 12-24-2024 Anion gap [Moles/Vol] 13 mmol/L 09-18 [facility] BUN/creatinine ratioOrdered By: Carlos Cavazos on 12-24-2024 Urea nitrogen/Creatinine [Mass ratio] 19.2 mg/mg 02-23 [facility] Basic Metabolic Profile (BMP )on 12-24-2024 BUN/CRE 19.2 RATIO Normal 02-23 [facility] Comment on above: Order Comment: 411-1 Performed By: #### L 500.2500, L100.0500 ####[facility] [address] [place], [address] Calcium [Mass/Vol] 8.8 mg/dL Normal 7.6-11.0 [facility] Comment on above: Order Comment: 411-1 Performed By: #### L 500.2500, L100.0500 ####[facility] [address] [place], [address] Chloride [Moles/Vol] 103 mmol/L Normal 98-108 [facility] Comment on above: Order Comment: 411-1 Performed By: #### L 500.2500, L100.0500 ####[facility] [address] [place], [address] CO2 [Moles/Vol] 23.7 mmol/L Normal 21.0-32.0 [facility] Comment on above: Order Comment: 411-1 Performed By: #### L 500.2500, L100.0500 ####[facility] [address] [place], [address] Creatinine [Mass/Vol] 0.82 mg/dL Normal 0.70-1.20 [facility] Comment on above: Order Comment: 411-1 Performed By: #### L 500.2500, L100.0500 ####[facility] [address] [place], [address] GAP 13 Normal 5-15 [facility] Comment on above: Order Comment: 411-1 Performed By: #### L 500.2500, L100.0500 ####[facility] [address] [place], [address] GFR/1.73 sq M.predicted among non-blacks MDRD (S/P/Bld) [Vol rate/Area] 93 mL/min/{1.73_m2} Normal >60 [facility] Comment on above: Order Comment: 411-1 Result Comment: mL/m in/1.73m2 CKD-EPI Creatinine Equation (2020) Performed By: #### L 500.2500, L100.0500 ####[facility] [address] [place], [address] Glucose [Mass/Vol] 88 mg/dL Normal 70-99 [facility] Comment on above: Order Comment: 411-1 Performed By: #### L 500.2500, L100.0500 ####[facility] [address] [place], [address] Potassium [Moles/Vol] 4.2 mmol/L Normal 3.3-5.1 [facility] Comment on above: Order Comment: 411-1 Performed By: #### L 500.2500, L100.0500 ####[facility] [address] [place], [address] Sodium [Moles/Vol] 139 mmol/L Normal 133-145 [facility] Comment on above: Order Comment: 411-1 Performed By: #### L 500.2500, L100.0500 ####[facility] [address] [place], [address] Urea nitrogen [Mass/Vol] 16 mg/dL Normal 4-19 [facility] Comment on above: Order Comment: 411-1 Performed By: #### L 500.2500, L100.0500 ####[facility] [address] [place], [address] CBC-Complete Blood Cnt No Di ffon 12-24-2024 Erythrocyte distribution width (RBC) [Ratio] 15.4 % High 11.6-14.6 [facility] Comment on above: Order Comment: 411-1 Performed By: #### L 500.2500, L100.0500 ####[facility] [address] [place], [address] Hematocrit (Bld) [Volume fraction] 39.8 % Low 40-54 [facility] Comment on above: Order Comment: 411-1 Performed By: #### L 500.2500, L100.0500 ####[facility] [address] [place], [address] Hemoglobin (Bld) [Mass/Vol] 12.4 g/dL Low 13.0-16.5 [facility] Comment on above: Order Comment: 411-1 Performed By: #### L 500.2500, L100.0500 ####[facility] [address] [place], [address] MCH (RBC) [Entitic mass] 26.6 pg Low 27.0-32.0 [facility] Comment on above: Order Comment: 411-1 Performed By: #### L 500.2500, L100.0500 ####[facility] [address] [place], [address] MCHC (RBC) [Mass/Vol] 31.2 g/dL Low 32-36 [facility] Comment on above: Order Comment: 411-1 Performed By: #### L 500.2500, L100.0500 ####[facility] [address] [place], [address] MCV (RBC) [Entitic vol] 85.4 fL Normal 80-94 [facility] Comment on above: Order Comment: 411-1 Performed By: #### L 500.2500, L100.0500 ####[facility] [address] [place], [address] Platelet mean volume (Bld) [Entitic vol] 10.4 fL Normal 6.2-12.0 [facility] Comment on above: Order Comment: 411-1 Performed By: #### L 500.2500, L100.0500 ####[facility] [address] [place], [address] Platelets (Bld) [#/Vol] 290 10*3/uL Normal 150-450 [facility] Comment on above: Order Comment: 411-1 Performed By: #### L 500.2500, L100.0500 ####[facility] [address] [place], [address] RBC (Bld) [#/Vol] 4.66 10*6/uL Normal 4.6-6.[address] [facility] Comment on above: Order Comment: 411-1 Performed By: #### L 500.2500, L100.0500 ####[facility] [address] [place], [address] RDW SD 48.1 fl High 35.1-43.9 [facility] Comment on above: Order Comment: 411-1 Performed By: #### L 500.2500, L100.0500 ####[facility] [address] [place], [address] WBC (Bld) [#/Vol] 16.6 10*3/uL High 4.4-11.[address] [facility] Comment on above: Order Comment: 411-1 Performed By: #### L 500.2500, L100.0500 ####[facility] [address] [place], [address] Carbon dioxide, total [Moles /volume] in Central venous bloodOrdered By: Carlos Cavazos on 12-24-2024 CO2 [Moles/Vol] 23.7 mmol/L 21.0-32.0 [facility] Chloride assayOrdered By: Sharif Crouch on 12-24-2024 Chloride [Moles/Vol] 103 mmol/L 98-108 [facility] Erythrocyte distribution wid th ratioOrdered By: Carlos Cavazos on 12-24-2024 Erythrocyte distribution width (RBC) [Ratio] 15.4 % High 11.6-14.6 [facility] Erythrocyte distribution wid th standard deviationOrdered By: Carlos Cavazos on 12-24-2024 Erythrocyte distribution width (RBC) [Ratio] 48.1 fl High 35.1-43.9 [facility] Glomerular filtration rate ( GFR) estimation/1.73 sq m using serum, plasma, or whole bOrdered By: Carlos Cavazos on 12-24-2024 GFR/1.73 sq M.predicted among non-blacks MDRD (S/P/Bld) [Vol rate/Area] 93 mL/min/{1.73_m2} >60 [facility] Comment on above: mL/min/1.73m2 CKD-EP I Creatinine Equation (2020) Hematocrit Auto (Bld) [Volum e fraction]Ordered By: Carlos Cavazos on 12-24-2024 Hematocrit (Bld) [Volume fraction] 39.8 % Low 40-54 [facility] Hemoglobin measurementOrdere d By: Carlos Cavazos on 12-24-2024 Hemoglobin (Bld) [Mass/Vol] 12.4 g/dL Low 13.0-16.5 [facility] MCV (mean corpuscular volume ) determinationOrdered By: Carlos Cavazos on 12-24-2024 MCV (RBC) [Entitic vol] 85.4 fL 80-94 [facility] Mean corpuscular hemoglobin (MCH) determinationOrdered By: Carlos Cavazos on 12-24-2024 MCH (RBC) [Entitic mass] 26.6 pg Low 27.0-32.0 [facility] Mean corpuscular hemoglobin concentration (MCHC) determinationOrdered By: Carlos Cavazos on 12-24-2024 MCHC (RBC) [Mass/Vol] 31.2 g/dL Low 32-36 [facility] Mean platelet volume determi nationOrdered By: Carlos Cavazos on 12-24-2024 Platelet mean volume (Bld) [Entitic vol] 10.4 fL 6.2-12.0 [facility] Platelet countOrdered By: Sharif Crouch on 12-24-2024 Platelets (Bld) [#/Vol] 290 10*3/uL 150-450 [facility] Potassium measurement (mass/ volume)Ordered By: Carlos Cavazos on 12-24-2024 Potassium (Unsp spec) [Mass/Vol] 4.2 mmol/L 3.3-5.1 [facility] RBC Auto (Bld) [#/Vol]Ordere d By: Carlos Cavazos on 12-24-2024 RBC (Bld) [#/Vol] 4.66 10*6/uL 4.6-6.[address] [facility] Serum creatinine measurement (mass/volume)Ordered By: Carlos Cavazos on 12-24-2024 Creatinine [Mass/Vol] 0.82 mg/dL 0.70-1.20 [facility] Serum glucose measurement (m ass/volume)Ordered By: Carlos Cavazos on 12-24-2024 Glucose [Mass/Vol] 88 mg/dL 70-99 [facility] Serum or plasma calcium oral urement (mass/volume)Ordered By: Carlos Cavazos on 12-24-2024 Calcium [Mass/Vol] 8.8 mg/dL 7.6-11.0 [facility] Serum or plasma urea nitroge n measurement (mass/volume)Ordered By: Carlos Cavazos on 12-24-2024 Urea nitrogen [Mass/Vol] 16 mg/dL 4-19 [facility] Sodium levelOrdered By: Moe Cavazos on 12-24-2024 Sodium [Moles/Vol] 139 mmol/L 133-145 [facility] White blood cell (WBC) count Ordered By: Carlos Cavazos on 12-24-2024 WBC (Bld) [#/Vol] 16.6 10*3/uL High 4.4-11.[address] [facility] International normalized rat io (INR) calculationOrdered By: Karon Corrales on 12-22-2024 INR Coag (Bld) [Relative time] 2.6 {INR} [facility] Prothrombin Time w/INRon INR Coag (PPP) [Relative time] 2.6 {INR} Normal [facility] Comment on above: Order Comment: 411.1 Performed By: #### L 300.7787 ####[facility] [address] [facility] [place], [place], [phone] PT Coag (PPP) [Time] 28.8 s High 11.7-14.9 [facility] Comment on above: Order Comment: 411.1 Performed By: #### L 300.3900 ####[facility] [address] [facility] [place], [place], [phone] Prothrombin timeOrdered By: Karon Corrales on 12-22-2024 PT Coag (PPP) [Time] 28.8 s High 11.7-14.9 [facility] International normalized rat io (INR) calculationOrdered By: Karon Corrales on 12-18-2024 INR Coag (Bld) [Relative time] 2.4 {INR} [facility] Prothrombin Time w/INRon INR Coag (PPP) [Relative time] 2.4 {INR} Normal [facility] Comment on above: Order Comment: 411.1 Performed By: #### L 300.3900 ####[facility] [address] [place], [place], [phone] PT Coag (PPP) [Time] 26.7 s High 11.7-14.9 [facility] Comment on above: Order Comment: 411.1 Performed By: #### L 300.3900 ####[facility] [address] [place], [place], [phone] Prothrombin timeOrdered By: Karon Corrales on 12-18-2024 PT Coag (PPP) [Time] 26.7 s High 11.7-14.9 [facility] International normalized rat io (INR) calculationOrdered By: Karon Corrales on 12-15-2024 INR Coag (Bld) [Relative time] 2.3 {INR} [facility] Prothrombin Time w/INRon INR Coag (PPP) [Relative time] 2.3 {INR} Normal [facility] Comment on above: Order Comment: 411.1 Performed By: #### L 300.3900 ####[facility] [address] [place], [place], [phone] Prothrombin timeOrdered By: Karon Corrales on 12-15-2024 PT Coag (PPP) [Time] 25.7 s High 11.7-14.9 [facility] Comment on above: Order Comment: 411.1 Performed By: #### L 300.3900 ####[facility] [address] [place], [place], [phone] International normalized rat io (INR) calculationOrdered By: Carlos Cavazos on 12-11-2024 INR Coag (Bld) [Relative time] 2.2 {INR} [facility] Prothrombin Time w/INRon INR Coag (PPP) [Relative time] 2.2 {INR} Normal [facility] Comment on above: Order Comment: 411-1 Performed By: #### L 300.3900 ####[facility] [address] [place], [address] Prothrombin timeOrdered By: Carlos Cavazos on 12-11-2024 PT Coag (PPP) [Time] 24.7 s High 11.7-14.9 [facility] Comment on above: Order Comment: 411-1 Performed By: #### L 300.3900 ####[facility] [address] [place], [place], [phone] International normalized rat io (INR) calculationOrdered By: Karon Corrales on 12-08-2024 INR Coag (Bld) [Relative time] 2.2 {INR} [facility] Prothrombin Time w/INRon INR Coag (PPP) [Relative time] 2.2 {INR} Normal [facility] Comment on above: Order Comment: 411.1 Performed By: #### L 300.3900 ####[facility] [address] [place], [address] PT Coag (PPP) [Time] 25.0 s High 11.7-14.9 [facility] Comment on above: Order Comment: 411.1 Performed By: #### L 300.3900 ####[facility] [address] [place], [place], [phone] Prothrombin timeOrdered By: Karon Corrales on 12-08-2024 PT Coag (PPP) [Time] 25.0 s High 11.7-14.9 [facility] International normalized rat io (INR) calculationOrdered By: Karon Corrales on 12-04-2024 INR Coag (Bld) [Relative time] 2.3 {INR} [facility] Prothrombin Time w/INRon INR Coag (PPP) [Relative time] 2.3 {INR} Normal [facility] Comment on above: Order Comment: 411.1 Performed By: #### L 300.3900 ####[facility] [address] [place], [address] PT Coag (PPP) [Time] 25.9 s High 11.7-14.9 [facility] Comment on above: Order Comment: 411.1 Performed By: #### L 300.3900 ####[facility] [address] [place], [address] Prothrombin timeOrdered By: Karon Corrales on 12-04-2024 PT Coag (PPP) [Time] 25.9 s High 11.7-14.9 [facility] International normalized rat io (INR) calculationOrdered By: Karon Corrales on 12-02-2024 INR Coag (Bld) [Relative time] 2.5 {INR} [facility] Prothrombin Time w/INRon INR Coag (PPP) [Relative time] 2.5 {INR} Normal [facility] Comment on above: Order Comment: 411.1 Performed By: #### L 300.3900 ####[facility] [address] [place], [address] PT Coag (PPP) [Time] 27.3 s High 11.7-14.9 [facility] Comment on above: Order Comment: 411.1 Performed By: #### L 300.3900 ####[facility] [address] [place], [address] Prothrombin timeOrdered By: Karon Corrales on 12-02-2024 PT Coag (PPP) [Time] 27.3 s High 11.7-14.9 [facility] International normalized rat io (INR) calculationOrdered By: Carlos Cavazos on 12-01-2024 INR Coag (Bld) [Relative time] 2.3 {INR} [facility] Prothrombin Time w/INRon INR Coag (PPP) [Relative time] 2.3 {INR} Normal [facility] Comment on above: Order Comment: 411-1 Performed By: #### L 300.3900 ####[facility] [address] [place], [address] PT Coag (PPP) [Time] 26.0 s High 11.7-14.9 [facility] Comment on above: Order Comment: 411-1 Performed By: #### L 300.3900 ####[facility] [address] [place], [address] Prothrombin timeOrdered By: Carlos Cavazos on 12-01-2024 PT Coag (PPP) [Time] 26.0 s High 11.7-14.9 [facility] International normalized rat io (INR) calculationOrdered By: Carlos Cavazos on 11-28-2024 INR Coag (Bld) [Relative time] 3.1 {INR} [facility] Prothrombin Time w/INRon INR Coag (PPP) [Relative time] 3.1 {INR} Normal [facility] Comment on above: Order Comment: 411-1 Performed By: #### L 300.3900 ####[facility] [address] [place], [address] PT Coag (PPP) [Time] 32.8 s High 11.7-14.9 [facility] Comment on above: Order Comment: 411-1 Performed By: #### L 300.3900 ####[facility] [address] [place], [address] Prothrombin timeOrdered By: Carlos Cavazos on 11-28-2024 PT Coag (PPP) [Time] 32.8 s High 11.7-14.9 [facility] International normalized rat io (INR) calculationOrdered By: Karon Corrales on 11-27-2024 INR Coag (Bld) [Relative time] 3.3 {INR} [facility] Prothrombin Time w/INRon INR Coag (PPP) [Relative time] 3.3 {INR} Normal [facility] Comment on above: Order Comment: 411.1 Performed By: #### L 300.3900 ####[facility] [address] [place], [place], [phone] PT Coag (PPP) [Time] 34.3 s High 11.7-14.9 [facility] Comment on above: Order Comment: 411.1 Performed By: #### L 300.3900 ####[facility] [address] [place], [place], [phone]) Prothrombin timeOrdered By: Karon Corrales on 11-27-2024 PT Coag (PPP) [Time] 34.3 s High 11.7-14.9 [facility] International normalized rat io (INR) calculationOrdered By: Kaorn Corrales on 11-24-2024 INR Coag (Bld) [Relative time] 2.8 {INR} [facility] Prothrombin Time w/INRon INR Coag (PPP) [Relative time] 2.8 {INR} Normal [facility] Comment on above: Order Comment: 411.2 Performed By: #### L 300.3900 ####[facility] [address] [place], [place], [phone] PT Coag (PPP) [Time] 30.0 s High 11.7-14.9 [facility] Comment on above: Order Comment: 411.2 Performed By: #### L 300.3900 ####[facility] [address] [place], [place], [phone](141) Prothrombin timeOrdered By: Karon Corrales on 11-24-2024 PT Coag (PPP) [Time] 30.0 s High 11.7-14.9 [facility] International normalized rat io (INR) calculationOrdered By: Karon Corrales on 11-20-2024 INR Coag (Bld) [Relative time] 3.0 {INR} [facility] Prothrombin Time w/INRon INR Coag (PPP) [Relative time] 3.0 {INR} Normal [facility] Comment on above: Order Comment: 411.2 Performed By: #### L 300.3900 ####[facility] [address] [place], [place], [phone] PT Coag (PPP) [Time] 32.0 s High 11.7-14.9 [facility] Comment on above: Order Comment: 411.2 Performed By: #### L 300.3900 ####[facility] [address] [place], [place], [phone](184) Prothrombin timeOrdered By: Karon Corrales on 11-20-2024 PT Coag (PPP) [Time] 32.0 s High 11.7-14.9 [facility] International normalized rat io (INR) calculationOrdered By: Karon Corrales on 11-17-2024 INR Coag (Bld) [Relative time] 2.9 {INR} [facility] Prothrombin Time w/INRon INR Coag (PPP) [Relative time] 2.9 {INR} Normal [facility] Comment on above: Order Comment: 411.2 Performed By: #### L 300.3900 ####[facility] [address] [place], [place], [phone] PT Coag (PPP) [Time] 30.7 s High 11.7-14.9 [facility] Comment on above: Order Comment: 411.2 Performed By: #### L 300.3900 ####[facility] [address] [place], [place], [phone](443) Prothrombin timeOrdered By: Karon Corrales on 11-17-2024 PT Coag (PPP) [Time] 30.7 s High 11.7-14.9 [facility] International normalized rat io (INR) calculationOrdered By: Karon Corrales on 11-13-2024 INR Coag (Bld) [Relative time] 2.2 {INR} [facility] Prothrombin Time w/INRon INR Coag (PPP) [Relative time] 2.2 {INR} Normal [facility] Comment on above: Order Comment: 411.2 Performed By: #### L 300.3900 ####[facility] [address] [place], [place], [phone] PT Coag (PPP) [Time] 24.7 s High 11.7-14.9 [facility] Comment on above: Order Comment: 411.2 Performed By: #### L 300.3900 ####[facility] [address] [place], [place], [phone](798) Prothrombin timeOrdered By: Karon Corrales on 11-13-2024 PT Coag (PPP) [Time] 24.7 s High 11.7-14.9 [facility] International normalized rat io (INR) calculationOrdered By: Karon Corrales on 11-10-2024 INR Coag (Bld) [Relative time] 2.6 {INR} [facility] Prothrombin Time w/INRon INR Coag (PPP) [Relative time] 2.6 {INR} Normal [facility] Comment on above: Order Comment: 411.2 Performed By: #### L 300.3900 ####[facility] [address] [place], [address] PT Coag (PPP) [Time] 28.7 s High 11.7-14.9 [facility] Comment on above: Order Comment: 411.2 Performed By: #### L 300.3900 ####[facility] [address] [place], [place], [phone] Prothrombin timeOrdered By: Karon Corrales on 11-10-2024 PT Coag (PPP) [Time] 28.7 s High 11.7-14.9 [facility] International normalized rat io (INR) calculationOrdered By: Karon Corrales on 11-06-2024 INR Coag (Bld) [Relative time] 3.1 {INR} [facility] Prothrombin Time w/INRon INR Coag (PPP) [Relative time] 3.1 {INR} Normal [facility] Comment on above: Order Comment: 411.2 Performed By: #### L 300.3900 ####[facility] [address] [place], [address] Prothrombin timeOrdered By: Karon Corrales on 11-06-2024 PT Coag (PPP) [Time] 33.0 s High 11.7-14.9 [facility] Comment on above: Order Comment: 411.2 Performed By: #### L 300.3900 ####[facility] [address] [place], [address] International normalized rat io (INR) calculationOrdered By: Carlos Cavazos on 11-03-2024 INR Coag (Bld) [Relative time] 3.0 {INR} [facility] Prothrombin Time w/INRon INR Coag (PPP) [Relative time] 3.0 {INR} Normal [facility] Comment on above: Order Comment: 411-2 Performed By: #### L 300.3900 ####[facility] [address] [place], [address] PT Coag (PPP) [Time] 31.4 s High 11.7-14.9 [facility] Comment on above: Order Comment: 411-2 Performed By: #### L 300.3900 ####[facility] [address] [place], [address] Prothrombin timeOrdered By: Carlos Cavazos on 11-03-2024 PT Coag (PPP) [Time] 31.4 s High 11.7-14.9 [facility] International normalized rat io (INR) calculationOrdered By: Karon Corrales on 10-30-2024 INR Coag (Bld) [Relative time] 2.4 {INR} [facility] Prothrombin Time w/INRon INR Coag (PPP) [Relative time] 2.4 {INR} Normal [facility] Comment on above: Performed By: #### L 300.3900 ####[facility] [address] [place], [place], [phone] PT Coag (PPP) [Time] 26.3 s High 11.7-14.9 [facility] Comment on above: Performed By: #### L 300.3900 ####[facility] [address] [place], [place], [phone] Prothrombin timeOrdered By: Karon Corrales on 10-30-2024 PT Coag (PPP) [Time] 26.3 s High 11.7-14.9 [facility] International normalized rat io (INR) calculationOrdered By: Karon Corrales on 10-27-2024 INR Coag (Bld) [Relative time] 2.2 {INR} [facility] Prothrombin Time w/INRon INR Coag (PPP) [Relative time] 2.2 {INR} Normal [facility] Comment on above: Order Comment: 411.2 Performed By: #### L 300.3900 ####[facility] [address] [place], [place], [phone] Prothrombin timeOrdered By: Karon Corrales on 10-27-2024 PT Coag (PPP) [Time] 24.5 s High 11.7-14.9 [facility] Comment on above: Order Comment: 411.2 Performed By: #### L 300.3900 ####[facility] [address] [place], [address] International normalized rat io (INR) calculationOrdered By: Karon Corrales on 10-23-2024 INR Coag (Bld) [Relative time] 2.5 {INR} [facility] Prothrombin Time w/INRon INR Coag (PPP) [Relative time] 2.5 {INR} Normal [facility] Comment on above: Order Comment: 411.2 Performed By: #### L 300.3900 ####[facility] [address] [place], [address] PT Coag (PPP) [Time] 27.9 s High 11.7-14.9 [facility] Comment on above: Order Comment: 411.2 Performed By: #### L 300.3900 ####[facility] [address], [address] Prothrombin timeOrdered By: Karon Corrales on 10-23-2024 PT Coag (PPP) [Time] 27.9 s High 11.7-14.9 [facility] International normalized rat io (INR) calculationOrdered By: Karon Corrales on 10-20-2024 INR Coag (Bld) [Relative time] 3.1 {INR} [facility] Prothrombin Time w/INRon INR Coag (PPP) [Relative time] 3.1 {INR} Normal [facility] Comment on above: Order Comment: 411.2 Performed By: #### L 300.3900 ####[facility] [address], [address] PT Coag (PPP) [Time] 32.8 s High 11.7-14.9 [facility] Comment on above: Order Comment: 411.2 Performed By: #### L 300.3900 ####[facility] [address], [address] Prothrombin timeOrdered By: Karon Corrales on 10-20-2024 PT Coag (PPP) [Time] 32.8 s High 11.7-14.9 [facility] International normalized rat io (INR) calculationOrdered By: Karon Corrales on 10-16-2024 INR Coag (Bld) [Relative time] 2.8 {INR} [facility] Prothrombin Time w/INRon INR Coag (PPP) [Relative time] 2.8 {INR} Normal [facility] Comment on above: Order Comment: 411.2 Performed By: #### L 300.3900 ####[facility] [address] [place], [place], [phone] PT Coag (PPP) [Time] 30.4 s High 11.7-14.9 [facility] Comment on above: Order Comment: 411.2 Performed By: #### L 300.3900 ####[facility] [address] [place], [phone] Prothrombin timeOrdered By: Karon Corrales on 10-16-2024 PT Coag (PPP) [Time] 30.4 s High 11.7-14.9 [facility] International normalized rat io (INR) calculationOrdered By: Carlos Cavazos on 10-13-2024 INR Coag (Bld) [Relative time] 1.9 {INR} [facility] Prothrombin Time w/INRon INR Coag (PPP) [Relative time] 1.9 {INR} Normal [facility] Comment on above: Order Comment: 411-2 Performed By: #### L 300.3900 ####[facility] [address] [place], [place], [phone] PT Coag (PPP) [Time] 22.4 s High 11.7-14.9 [facility] Comment on above: Order Comment: 411-2 Performed By: #### L 300.3900 ####[facility] [address] [place], [place], [phone] Prothrombin timeOrdered By: Carlos Cavazos on 10-13-2024 PT Coag (PPP) [Time] 22.4 s High 11.7-14.9 [facility] International normalized rat io (INR) calculationOrdered By: Karon Corrales on 10-09-2024 INR Coag (Bld) [Relative time] 3.0 {INR} [facility] Prothrombin Time w/INRon INR Coag (PPP) [Relative time] 3.0 {INR} Normal [facility] Comment on above: Order Comment: 411.2 Performed By: #### L 300.3900 ####[facility] [address] [place], [address] Prothrombin timeOrdered By: Karon Corrales on 10-09-2024 PT Coag (PPP) [Time] 31.8 s High 11.7-14.9 [facility] Comment on above: Order Comment: 411.2 Performed By: #### L 300.3900 ####[facility] [address] [place], [address] International normalized rat io (INR) calculationOrdered By: Carlos Cavazos on 10-06-2024 INR Coag (Bld) [Relative time] 2.7 {INR} [facility] Prothrombin Time w/INRon INR Coag (PPP) [Relative time] 2.7 {INR} Normal [facility] Comment on above: Order Comment: 411-2 Performed By: #### L 300.3900 ####[facility] [address] [place], [address] PT Coag (PPP) [Time] 29.6 s High 11.7-14.9 [facility] Comment on above: Order Comment: 411-2 Performed By: #### L 300.3900 ####[facility] [address] [place], [address] Prothrombin timeOrdered By: Carlos Cavazos on 10-06-2024 PT Coag (PPP) [Time] 29.6 s High 11.7-14.9 [facility] International normalized rat io (INR) calculationOrdered By: Karon Corrales on 10-02-2024 INR Coag (Bld) [Relative time] 2.3 {INR} [facility] Prothrombin Time w/INRon INR Coag (PPP) [Relative time] 2.3 {INR} Normal [facility] Comment on above: Order Comment: 411.2 Performed By: #### L 300.3900 ####[facility] [address] [place], [address] PT Coag (PPP) [Time] 26.0 s High 11.7-14.9 [facility] Comment on above: Order Comment: 411.2 Performed By: #### L 300.3900 ####[facility] [address] [place], [address] Prothrombin timeOrdered By: Karon Corrales on 10-02-2024 PT Coag (PPP) [Time] 26.0 s High 11.7-14.9 [facility] International normalized rat io (INR) calculationOrdered By: Karon Corrales on 09-30-2024 INR Coag (Bld) [Relative time] 3.1 {INR} [facility] Prothrombin Time w/INRon INR Coag (PPP) [Relative time] 3.1 {INR} Normal [facility] Comment on above: Order Comment: 411.2 Performed By: #### L 300.3900 ####[facility] [address] [place], [address] PT Coag (PPP) [Time] 32.6 s High 11.7-14.9 [facility] Comment on above: Order Comment: 411.2 Performed By: #### L 300.3900 ####[facility] [address] [place], [place], [phone] Prothrombin timeOrdered By: Karon Corrales on 09-30-2024 PT Coag (PPP) [Time] 32.6 s High 11.7-14.9 [facility] International normalized rat io (INR) calculationOrdered By: Karon Corrales on 09-25-2024 INR Coag (Bld) [Relative time] 2.4 {INR} [facility] Prothrombin Time w/INRon INR Coag (PPP) [Relative time] 2.4 {INR} Normal [facility] Comment on above: Order Comment: 411.2 Performed By: #### L 300.3900 ####[facility] [address] [place], [address] Prothrombin timeOrdered By: Karon Corrales on 09-25-2024 PT Coag (PPP) [Time] 26.7 s High 11.7-14.9 [facility] Comment on above: Order Comment: 411.2 Performed By: #### L 300.3900 ####[facility] [address] [place], [place], [phone] International normalized rat io (INR) calculationOrdered By: Karon Corrales on 09-22-2024 INR Coag (Bld) [Relative time] 2.5 {INR} [facility] Prothrombin Time w/INRon INR Coag (PPP) [Relative time] 2.5 {INR} Normal [facility] Comment on above: Order Comment: 411.2 Performed By: #### L 300.3900 ####[facility] [address] [place], [place], [phone] Prothrombin timeOrdered By: Karon Corrales on 09-22-2024 PT Coag (PPP) [Time] 27.4 s High 11.7-14.9 [facility] Comment on above: Order Comment: 411.2 Performed By: #### L 300.3900 ####[facility] [address] [place], [address] International normalized rat io (INR) calculationOrdered By: Karon Corrales on 09-18-2024 INR Coag (Bld) [Relative time] 2.2 {INR} [facility] Prothrombin Time w/INRon INR Coag (PPP) [Relative time] 2.2 {INR} Normal [facility] Comment on above: Order Comment: 411.2 Performed By: #### L 300.3900 ####[facility] [address] [place], [place], [phone] PT Coag (PPP) [Time] 25.1 s High 11.7-14.9 [facility] Comment on above: Order Comment: 411.2 Performed By: #### L 300.3900 ####[facility] [address] [place], [place], [phone] Prothrombin timeOrdered By: Karon Corrales on 09-18-2024 PT Coag (PPP) [Time] 25.1 s High 11.7-14.9 [facility] International normalized rat io (INR) calculationOrdered By: Carlos Cavazos on 09-15-2024 INR Coag (Bld) [Relative time] 2.4 {INR} [facility] Prothrombin Time w/INRon INR Coag (PPP) [Relative time] 2.4 {INR} Normal [facility] Comment on above: Order Comment: 411-2 Performed By: #### L 300.3900 ####[facility] [address] [place], [place], [phone] Prothrombin timeOrdered By: Carlos Cavazos on 09-15-2024 PT Coag (PPP) [Time] 26.3 s High 11.7-14.9 [facility] Comment on above: Order Comment: 411-2 Performed By: #### L 300.3900 ####[facility] [address] [place], [place], [phone] International normalized rat io (INR) calculationOrdered By: Karon Corrales on 09-11-2024 INR Coag (Bld) [Relative time] 2.0 {INR} [facility] Prothrombin Time w/INRon INR Coag (PPP) [Relative time] 2.0 {INR} Normal [facility] Comment on above: Order Comment: 411.2 Performed By: #### L 300.3900 ####[facility] [address] [place], [place], [phone] PT Coag (PPP) [Time] 22.9 s High 11.7-14.9 [facility] Comment on above: Order Comment: 411.2 Performed By: #### L 300.3900 ####[facility] [address] [place], [place], [phone](153) Prothrombin timeOrdered By: Karon Corrales on 09-11-2024 PT Coag (PPP) [Time] 22.9 s High 11.7-14.9 [facility] International normalized rat io (INR) calculationOrdered By: Karon Corrales on 09-08-2024 INR Coag (Bld) [Relative time] 2.0 {INR} [facility] Prothrombin Time w/INRon INR Coag (PPP) [Relative time] 2.0 {INR} Normal [facility] Comment on above: Order Comment: 411.2 Performed By: #### L 300.3900 ####[facility] [address] [place], [place], [phone] PT Coag (PPP) [Time] 22.8 s High 11.7-14.9 [facility] Comment on above: Order Comment: 411.2 Performed By: #### L 300.3900 ####[facility] [address] [place], [place], [phone]) Prothrombin timeOrdered By: Karon Corrales on 09-08-2024 PT Coag (PPP) [Time] 22.8 s High 11.7-14.9 [facility] International normalized rat io (INR) calculationOrdered By: Carlos Cavazos on 09-04-2024 INR Coag (Bld) [Relative time] 1.7 {INR} [facility] Prothrombin Time w/INRon INR Coag (PPP) [Relative time] 1.7 {INR} Normal [facility] Comment on above: Order Comment: 411-2 Performed By: #### L 300.3900 ####[facility] [address], [address] PT Coag (PPP) [Time] 20.8 s High 11.7-14.9 [facility] Comment on above: Order Comment: 411-2 Performed By: #### L 300.3900 ####[facility] [address] [place], [address] Prothrombin timeOrdered By: Carlos Cavazos on 09-04-2024 PT Coag (PPP) [Time] 20.8 s High 11.7-14.9 [facility] International normalized rat io (INR) calculationOrdered By: Carlos Cavazos on 09-01-2024 INR Coag (Bld) [Relative time] 2.9 {INR} [facility] Prothrombin Time w/INRon INR Coag (PPP) [Relative time] 2.9 {INR} Normal [facility] Comment on above: Order Comment: 411-2 Performed By: #### L 300.3900 ####[facility] [address], [address] PT Coag (PPP) [Time] 30.7 s High 11.7-14.9 [facility] Comment on above: Order Comment: 411-2 Performed By: #### L 300.3900 ####[facility] [address], [phone] Prothrombin timeOrdered By: Carlos Cavazos on 09-01-2024 PT Coag (PPP) [Time] 30.7 s High 11.7-14.[address] [facility] International normalized rat io (INR) calculationOrdered By: Carlos Cavazos on 08-28-2024 INR Coag (Bld) [Relative time] 2.4 {INR} [facility] Prothrombin Time w/INRon INR Coag (PPP) [Relative time] 2.4 {INR} Normal [facility] Comment on above: Order Comment: 411-2 Performed By: #### L 300.3900 ####[facility] [address] [place], [address] Prothrombin timeOrdered By: Carlos Cavazos on 08-28-2024 PT Coag (PPP) [Time] 26.7 s High 11.7-14.9 [facility] Comment on above: Order Comment: 411-2 Performed By: #### L 300.3900 ####[facility] [address] [place], [address] International normalized rat io (INR) calculationOrdered By: Karon Corrales on 08-25-2024 INR Coag (Bld) [Relative time] 1.8 {INR} [facility] Prothrombin Time w/INRon INR Coag (PPP) [Relative time] 1.8 {INR} Normal [facility] Comment on above: Order Comment: 411.2 Performed By: #### L 300.3900 ####[facility] [address] [place], [place], [phone] PT Coag (PPP) [Time] 21.6 s High 11.7-14.9 [facility] Comment on above: Order Comment: 411.2 Performed By: #### L 300.3900 ####[facility] [address] [place], [address] Prothrombin timeOrdered By: Karon Corrales on 08-25-2024 PT Coag (PPP) [Time] 21.6 s High 11.7-14.9 [facility] International normalized rat io (INR) calculationOrdered By: Karon Corrales on 08-21-2024 INR Coag (Bld) [Relative time] 1.7 {INR} [facility] PSA, total screeningOrdered By: Karon Corrales on 08-21-2024 Prostate Specific Antigen Screen 0.52 ng/mL 0.02-4.00 [facility] Comment on above: This test was perfor med using the [employer] tPSA method. Measured values of a patient sample can vary depending on the testing procedure used. PSA values determined on patient samples by different testing procedures cannot be used interchangeably. If there is a change in PSA assays while monitoring therapy, sequential testing should be performed to confirm baseline values. PSA,Total - Annual Screenon 08-21-2024 PSA,TOT SCREEN 0.52 ng/mL Normal 0.02-4.00 [facility] Comment on above: Order Comment: 411.2 [...] values. Performed By: #### L 501.9910, L300.3900 ####[facility] [address], [address] Prothrombin Time w/INRon INR Coag (PPP) [Relative time] 1.7 {INR} Normal [facility] Comment on above: Order Comment: 411.2 Performed By: #### L 501.9910, L300.3900 ####[facility] [address] [place], [address] Prothrombin timeOrdered By: Karon Corrales on 08-21-2024 PT Coag (PPP) [Time] 20.1 s High 11.7-14.9 [facility] Comment on above: Order Comment: 411.2 Performed By: #### L 501.9910, L300.3900 ####[facility] [address] [place], [place], [phone] International normalized rat io (INR) calculationOrdered By: Karon Corrales on 08-18-2024 INR Coag (Bld) [Relative time] 3.0 {INR} [facility] Prothrombin Time w/INRon INR Coag (PPP) [Relative time] 3.0 {INR} Normal [facility] Comment on above: Order Comment: 411.2 Performed By: #### L 300.3900 ####[facility] [address] [place], [place], [phone](376) PT Coag (PPP) [Time] 31.4 s High 11.7-14.9 [facility] Comment on above: Order Comment: 411.2 Performed By: #### L 300.3900 ####[facility] [address] [place], [place], [phone](596) Prothrombin timeOrdered By: Karon Corrales on 08-18-2024 PT Coag (PPP) [Time] 31.4 s High 11.7-14.9 [facility] International normalized rat io (INR) calculationOrdered By: Karon Corrales on 08-14-2024 INR Coag (Bld) [Relative time] 2.4 {INR} [facility] Prothrombin Time w/INRon INR Coag (PPP) [Relative time] 2.4 {INR} Normal [facility] Comment on above: Order Comment: 411.2 Performed By: #### L 300.3900 ####[facility] [address] [place], [address] PT Coag (PPP) [Time] 26.6 s High 11.7-14.9 [facility] Comment on above: Order Comment: 411.2 Performed By: #### L 300.3900 ####[facility] [address] [place], [place], [phone](249) Prothrombin timeOrdered By: Karon Corrales on 08-14-2024 PT Coag (PPP) [Time] 26.6 s High 11.7-14.9 [facility] International normalized rat io (INR) calculationOrdered By: Karon Corrales on 08-11-2024 INR Coag (Bld) [Relative time] 3.1 {INR} [facility] Prothrombin Time w/INRon INR Coag (PPP) [Relative time] 3.1 {INR} Normal [facility] Comment on above: Order Comment: 411.2 Performed By: #### L 300.3900 ####[facility] [address] [place], [place], [phone](425) PT Coag (PPP) [Time] 32.4 s High 11.7-14.9 [facility] Comment on above: Order Comment: 411.2 Performed By: #### L 300.3900 ####[facility] [address] [place], [place], [phone] Prothrombin timeOrdered By: Karon Corrales on 08-11-2024 PT Coag (PPP) [Time] 32.4 s High 11.7-14.9 [facility] International normalized rat io (INR) calculationOrdered By: Carlos Cavazos on 08-07-2024 INR Coag (Bld) [Relative time] 2.8 {INR} [facility] Prothrombin Time w/INRon INR Coag (PPP) [Relative time] 2.8 {INR} Normal [facility] Comment on above: Order Comment: 411-2 Performed By: #### L 300.3900 ####[facility] [address] [place], [place], [phone] PT Coag (PPP) [Time] 30.3 s High 11.7-14.9 [facility] Comment on above: Order Comment: 411-2 Performed By: #### L 300.3900 ####[facility] [address] [place], [address] Prothrombin timeOrdered By: Carlos Cavazos on 08-07-2024 PT Coag (PPP) [Time] 30.3 s High 11.7-14.9 [facility] International normalized rat io (INR) calculationOrdered By: Carlos Cavazos on 08-04-2024 INR Coag (Bld) [Relative time] 1.9 {INR} [facility] Prothrombin Time w/INRon INR Coag (PPP) [Relative time] 1.9 {INR} Normal [facility] Comment on above: Order Comment: 411-2 Performed By: #### L 300.3900 ####[facility] [address] [place], [place], [phone] PT Coag (PPP) [Time] 22.1 s High 11.7-14.9 [facility] Comment on above: Order Comment: 411-2 Performed By: #### L 300.3900 ####[facility] [address] [place], [place], [phone] Prothrombin timeOrdered By: Carlos Cavazos on 08-04-2024 PT Coag (PPP) [Time] 22.1 s High 11.7-14.9 [facility] International normalized rat io (INR) calculationOrdered By: Karon Corrales on 07-31-2024 INR Coag (Bld) [Relative time] 3.2 {INR} [facility] Prothrombin Time w/INRon INR Coag (PPP) [Relative time] 3.2 {INR} Normal [facility] Comment on above: Order Comment: 411.2 Performed By: #### L 300.3900 ####[facility] [address] [place], [place], [phone] PT Coag (PPP) [Time] 33.5 s High 11.7-14.9 [facility] Comment on above: Order Comment: 411.2 Performed By: #### L 300.3900 ####[facility] [address] [place], [place], [phone] Prothrombin timeOrdered By: Karon Corrales on 07-31-2024 PT Coag (PPP) [Time] 33.5 s High 11.7-14.9 [facility] International normalized rat io (INR) calculationOrdered By: Karon Corrales on 07-28-2024 INR Coag (Bld) [Relative time] 2.7 {INR} [facility] Prothrombin Time w/INRon INR Coag (PPP) [Relative time] 2.7 {INR} Normal [facility] Comment on above: Order Comment: 411.2 Performed By: #### L 300.3900 ####[facility] [address] [place], [place], [phone] PT Coag (PPP) [Time] 29.6 s High 11.7-14.9 [facility] Comment on above: Order Comment: 411.2 Performed By: #### L 300.3900 ####[facility] [address] [place], [place], [phone] Prothrombin timeOrdered By: Karon Corrales on 07-28-2024 PT Coag (PPP) [Time] 29.6 s High 11.7-14.9 [facility] International normalized rat io (INR) calculationOrdered By: Carlos Cavazos on 07-25-2024 INR Coag (Bld) [Relative time] 3.0 {INR} [facility] Prothrombin Time w/INRon INR Coag (PPP) [Relative time] 3.0 {INR} Normal [facility] Comment on above: Order Comment: 411-2 Performed By: #### L 300.3900 ####[facility] [address] [place], [address] Prothrombin timeOrdered By: Carlos Cavazos on 07-25-2024 PT Coag (PPP) [Time] 32.1 s High 11.7-14.9 [facility] Comment on above: Order Comment: 411-2 Performed By: #### L 300.3900 ####[facility] [address] [place], [place], [phone] International normalized rat io (INR) calculationOrdered By: Karon Corrales on 07-24-2024 INR Coag (Bld) [Relative time] 3.4 {INR} [facility] Prothrombin Time w/INRon INR Coag (PPP) [Relative time] 3.4 {INR} Normal [facility] Comment on above: Order Comment: 411.2 Performed By: #### L 300.3900 ####[facility] [address] [place], [place], [phone] Prothrombin timeOrdered By: Karon Corrales on 07-24-2024 PT Coag (PPP) [Time] 35.4 s High 11.7-14.9 [facility] Comment on above: Order Comment: 411.2 Performed By: #### L 300.3900 ####[facility] [address] [place], [place], [phone] International normalized rat io (INR) calculationOrdered By: Karon Corrales on 07-21-2024 INR Coag (Bld) [Relative time] 1.6 {INR} [facility] Prothrombin Time w/INRon INR Coag (PPP) [Relative time] 1.6 {INR} Normal [facility] Comment on above: Order Comment: 411.2 Performed By: #### L 300.3900 ####[facility] [address] [place], [place], [phone] PT Coag (PPP) [Time] 19.6 s High 11.7-14.9 [facility] Comment on above: Order Comment: 411.2 Performed By: #### L 300.3900 ####[facility] [address] [place], [place], [phone](675) Prothrombin timeOrdered By: Karon Corrales on 07-21-2024 PT Coag (PPP) [Time] 19.6 s High 11.7-14.9 [facility] International normalized rat io (INR) calculationOrdered By: Karon Corrales on 07-17-2024 INR Coag (Bld) [Relative time] 2.9 {INR} [facility] Prothrombin Time w/INRon INR Coag (PPP) [Relative time] 2.9 {INR} Normal [facility] Comment on above: Order Comment: 411.2 Performed By: #### L 300.3900 ####[facility] [address] [place], [place], [phone] PT Coag (PPP) [Time] 31.1 s High 11.7-14.9 [facility] Comment on above: Order Comment: 411.2 Performed By: #### L 300.3900 ####[facility] [address] [place], [address] Prothrombin timeOrdered By: Karon Corrales on 07-17-2024 PT Coag (PPP) [Time] 31.1 s High 11.7-14.9 [facility] International normalized rat io (INR) calculationOrdered By: Carlos Cavazos on 07-14-2024 INR Coag (Bld) [Relative time] 2.5 {INR} [facility] Prothrombin Time w/INRon INR Coag (PPP) [Relative time] 2.5 {INR} Normal [facility] Comment on above: Order Comment: 411-2 Performed By: #### L 300.3900 ####[facility] [address] [place], [address] PT Coag (PPP) [Time] 27.5 s High 11.7-14.9 [facility] Comment on above: Order Comment: 411-2 Performed By: #### L 300.3900 ####[facility] [address] [place], [address] Prothrombin timeOrdered By: Carlos Cavazos on 07-14-2024 PT Coag (PPP) [Time] 27.5 s High 11.7-14.9 [facility] International normalized rat io (INR) calculationOrdered By: Carlos Cavazos on 07-11-2024 INR Coag (Bld) [Relative time] 2.5 {INR} [facility] Prothrombin Time w/INRon INR Coag (PPP) [Relative time] 2.5 {INR} Normal [facility] Comment on above: Performed By: #### L 300.3900 ####[facility] [address] [place], [address] PT Coag (PPP) [Time] 27.7 s High 11.7-14.9 [facility] Comment on above: Performed By: #### L 300.3900 ####[facility] [address] [place], [place], [phone] Prothrombin timeOrdered By: Carlos Cavazos on 07-11-2024 PT Coag (PPP) [Time] 27.7 s High 11.7-14.9 [facility] Prothrombin Time w/INRon INR Normal [facility] Comment on above: Order Comment: 411.2 Result Comment: QNS TUBE NOT FILLED Performed By: #### L 300.3900 ####[facility] [address] [place], [place], [phone] PROTIME Normal 11.7-14.9 [facility] Comment on above: Order Comment: 411.2 Result Comment: QNS TUBE NOT FILLED Performed By: #### L 300.3900 ####[facility] [address] [place], [place], [phone]) International normalized rat io (INR) calculationOrdered By: Kvng Crisostomo on 07-07-2024 INR Coag (Bld) [Relative time] 2.5 {INR} [facility] Prothrombin Time w/INRon INR Coag (PPP) [Relative time] 2.5 {INR} Normal [facility] Comment on above: Order Comment: 411.2 Performed By: #### L 300.3900 ####[facility] [address] [place], [address] PT Coag (PPP) [Time] 27.2 s High 11.7-14.9 [facility] Comment on above: Order Comment: 411.2 Performed By: #### L 300.3900 ####[facility] [address] [place], [address] Prothrombin timeOrdered By: Kvng Crisostomo on 07-07-2024 PT Coag (PPP) [Time] 27.2 s High 11.7-14.9 [facility] International normalized rat io (INR) calculationOrdered By: Kvng Crisostomo on 07-03-2024 INR Coag (Bld) [Relative time] 2.5 {INR} [facility] Prothrombin Time w/INRon INR Coag (PPP) [Relative time] 2.5 {INR} Normal [facility] Comment on above: Order Comment: 411.2 Performed By: #### L 300.3900 ####[facility] [address] [place], [address] PT Coag (PPP) [Time] 27.2 s High 11.7-14.9 [facility] Comment on above: Order Comment: 411.2 Performed By: #### L 300.3900 ####[facility] [address] [place], [address] Prothrombin timeOrdered By: Kvng Crisostomo on 07-03-2024 PT Coag (PPP) [Time] 27.2 s High 11.7-14.9 [facility] International normalized rat io (INR) calculationOrdered By: Kvng Crisostomo on 06-30-2024 INR Coag (Bld) [Relative time] 2.4 {INR} [facility] Prothrombin Time w/INRon INR Coag (PPP) [Relative time] 2.4 {INR} Normal [facility] Comment on above: Order Comment: 411.2 Performed By: #### L 300.3900 ####[facility] [address] [place], [address] PT Coag (PPP) [Time] 26.8 s High 11.7-14.9 [facility] Comment on above: Order Comment: 411.2 Performed By: #### L 300.3900 ####[facility] [address] [place], [address] Prothrombin timeOrdered By: Kvng Crisostomo on 06-30-2024 PT Coag (PPP) [Time] 26.8 s High 11.7-14.9 [facility] International normalized rat io (INR) calculationOrdered By: Kvng Crisostomo on 06-26-2024 INR Coag (Bld) [Relative time] 2.5 {INR} [facility] Prothrombin Time w/INRon INR Coag (PPP) [Relative time] 2.5 {INR} Normal [facility] Comment on above: Order Comment: 411.2 Performed By: #### L 300.3900 ####[facility] [address] [place], [address] PT Coag (PPP) [Time] 27.5 s High 11.7-14.9 [facility] Comment on above: Order Comment: 411.2 Performed By: #### L 300.3900 ####[facility] [address] [place], [place], [phone](263) Prothrombin timeOrdered By: Kvng Crisostomo on 06-26-2024 PT Coag (PPP) [Time] 27.5 s High 11.7-14.9 [facility] International normalized rat io (INR) calculationOrdered By: Carlos Cavazos on 06-23-2024 INR Coag (Bld) [Relative time] 2.8 {INR} [facility] Prothrombin Time w/INRon INR Coag (PPP) [Relative time] 2.8 {INR} Normal [facility] Comment on above: Order Comment: 411-2 Performed By: #### L 300.3900 ####[facility] [address] [place], [address] PT Coag (PPP) [Time] 29.7 s High 11.7-14.9 [facility] Comment on above: Order Comment: 411-2 Performed By: #### L 300.3900 ####[facility] [address] [place], [address] Prothrombin timeOrdered By: Carlos Cavazos on 06-23-2024 PT Coag (PPP) [Time] 29.7 s High 11.7-14.9 [facility] International normalized rat io (INR) calculationOrdered By: Kvng Crisostomo on 06-19-2024 INR Coag (Bld) [Relative time] 2.6 {INR} [facility] Prothrombin Time w/INRon INR Coag (PPP) [Relative time] 2.6 {INR} Normal [facility] Comment on above: Order Comment: 411.2 Performed By: #### L 300.3900 ####[facility] [address] [place], [address] PT Coag (PPP) [Time] 28.6 s High 11.7-14.9 [facility] Comment on above: Order Comment: 411.2 Performed By: #### L 300.3900 ####[facility] [address] [place], [address] Prothrombin timeOrdered By: Kvng Crisostomo on 06-19-2024 PT Coag (PPP) [Time] 28.6 s High 11.7-14.9 [facility] International normalized rat io (INR) calculationOrdered By: Kvng Crisostomo on 06-16-2024 INR Coag (Bld) [Relative time] 2.5 {INR} [facility] Prothrombin Time w/INRon INR Coag (PPP) [Relative time] 2.5 {INR} Normal [facility] Comment on above: Order Comment: 411.2 Performed By: #### L 300.3900 ####[facility] [address] [place], [address] PT Coag (PPP) [Time] 27.3 s High 11.7-14.9 [facility] Comment on above: Order Comment: 411.2 Performed By: #### L 300.3900 ####[facility] [address] [place], [address] Prothrombin timeOrdered By: Kvng Crisostomo on 06-16-2024 PT Coag (PPP) [Time] 27.3 s High 11.7-14.9 [facility] International normalized rat io (INR) calculationOrdered By: Kvng Crisostomo on 06-12-2024 INR Coag (Bld) [Relative time] 2.1 {INR} [facility] Prothrombin Time w/INRon INR Coag (PPP) [Relative time] 2.1 {INR} Normal [facility] Comment on above: Order Comment: 411.2 Performed By: #### L 300.3900 ####[facility] [address] [place], [address] PT Coag (PPP) [Time] 24.0 s High 11.7-14.9 [facility] Comment on above: Order Comment: 411.2 Performed By: #### L 300.3900 ####[facility] [address] [place], [address] Prothrombin timeOrdered By: Kvng Crisostomo on 06-12-2024 PT Coag (PPP) [Time] 24.0 s High 11.7-14.9 [facility] International normalized rat io (INR) calculationOrdered By: Carlos Cavazos on 06-09-2024 INR Coag (Bld) [Relative time] 1.5 {INR} [facility] Prothrombin Time w/INRon INR Coag (PPP) [Relative time] 1.5 {INR} Normal [facility] Comment on above: Order Comment: 411-2 Performed By: #### L 300.3900 ####[facility] [address] [place], [address] PT Coag (PPP) [Time] 18.0 s High 11.7-14.9 [facility] Comment on above: Order Comment: 411-2 Performed By: #### L 300.3900 ####[facility] [address], [address] Prothrombin timeOrdered By: Carlos Cavazos on 06-09-2024 PT Coag (PPP) [Time] 18.0 s High 11.7-14.9 [facility] International normalized rat io (INR) calculationOrdered By: Kvng Crisostomo on 06-05-2024 INR Coag (Bld) [Relative time] 2.8 {INR} [facility] Prothrombin Time w/INRon INR Coag (PPP) [Relative time] 2.8 {INR} Normal [facility] Comment on above: Order Comment: 411.2 Performed By: #### L 300.3900 ####[facility] [address], [address] PT Coag (PPP) [Time] 30.3 s High 11.7-14.9 [facility] Comment on above: Order Comment: 411.2 Performed By: #### L 300.3900 ####[facility] [address] [place], [address] Prothrombin timeOrdered By: Kvng Crisostomo on 06-05-2024 PT Coag (PPP) [Time] 30.3 s High 11.7-14.9 [facility] International normalized rat io (INR) calculationOrdered By: Kvng Crisostomo on 06-02-2024 INR Coag (Bld) [Relative time] 2.6 {INR} [facility] Prothrombin Time w/INRon INR Coag (PPP) [Relative time] 2.6 {INR} Normal [facility] Comment on above: Order Comment: 411.2 Performed By: #### L 300.3900 ####[facility] [address] [place], [address] PT Coag (PPP) [Time] 28.6 s High 11.7-14.9 [facility] Comment on above: Order Comment: 411.2 Performed By: #### L 300.3900 ####[facility] [address] [facility] [address] Prothrombin timeOrdered By: Kvng Crisostomo on 06-02-2024 PT Coag (PPP) [Time] 28.6 s High 11.7-14.9 [facility] International normalized rat io (INR) calculationOrdered By: Kvng Crisostomo on 05-29-2024 INR Coag (Bld) [Relative time] 2.5 {INR} [facility] Prothrombin Time w/INRon INR Coag (PPP) [Relative time] 2.5 {INR} Normal [facility] Comment on above: Order Comment: 411.2 Performed By: #### L 300.3900 ####[facility] [address] [place], [address] PT Coag (PPP) [Time] 27.7 s High 11.7-14.9 [facility] Comment on above: Order Comment: 411.2 Performed By: #### L 300.3900 ####[facility] [address] [place], [address] Prothrombin timeOrdered By: Kvng Crisostomo on 05-29-2024 PT Coag (PPP) [Time] 27.7 s High 11.7-14.9 [facility] International normalized rat io (INR) calculationOrdered By: Carlos Cavazos on 05-26-2024 INR Coag (Bld) [Relative time] 2.2 {INR} [facility] Prothrombin Time w/INRon INR Coag (PPP) [Relative time] 2.2 {INR} Normal [facility] Comment on above: Order Comment: 411-2 Performed By: #### L 300.3900 ####[facility] [address] [place], [place], [phone] PT Coag (PPP) [Time] 24.5 s High 11.7-14.9 [facility] Comment on above: Order Comment: 411-2 Performed By: #### L 300.3900 ####[facility] [address] [place], [address] Prothrombin timeOrdered By: Carlos Cavazos on 05-26-2024 PT Coag (PPP) [Time] 24.5 s High 11.7-14.9 [facility] International normalized rat io (INR) calculationOrdered By: Kvng Crisostomo on 05-22-2024 INR Coag (Bld) [Relative time] 2.8 {INR} [facility] Prothrombin Time w/INRon INR Coag (PPP) [Relative time] 2.8 {INR} Normal [facility] Comment on above: Order Comment: 411.2 Performed By: #### L 300.3900 ####[facility] [address] [place], [place], [phone] PT Coag (PPP) [Time] 30.3 s High 11.7-14.9 [facility] Comment on above: Order Comment: 411.2 Performed By: #### L 300.3900 ####[facility] [address] [place], [phone] Prothrombin timeOrdered By: Kvng Crisostomo on 05-22-2024 PT Coag (PPP) [Time] 30.3 s High 11.7-14.9 [facility] International normalized rat io (INR) calculationOrdered By: Kvng Crisostomo on 05-20-2024 INR Coag (Bld) [Relative time] 4.0 {INR} High [facility] Comment on above: CRITICAL VALUE CASEY D TO [id number]/14/25 08 Diana Srinivasan.RESULTS READ BACK BY SAME. Prothrombin Time w/INRon INR Coag (PPP) [Relative time] 4.0 {INR} Invalid Interpretation Code [facility] Comment on above: Order Comment: 411.2 Result Comment: CRIT ICAL VALUE CALLED TO FIGKWMFOA59/14/25 [facility] Diana Mattson.RESULTS READ BACK BY SAME. Performed By: #### L 300.3900 ####[facility] [address] [place], [place], [phone](206) PT Coag (PPP) [Time] 39.9 s High 11.7-14.9 [facility] Comment on above: Order Comment: 411.2 Performed By: #### L 300.3900 ####[facility] [address] [place], [place], [phone]) Prothrombin timeOrdered By: Kvng Crisostomo on 05-20-2024 PT Coag (PPP) [Time] 39.9 s High 11.7-14.9 [facility] International normalized rat io (INR) calculationOrdered By: Kvng Crisostomo on 05-19-2024 INR Coag (Bld) [Relative time] 3.4 {INR} [facility] Prothrombin Time w/INRon INR Coag (PPP) [Relative time] 3.4 {INR} Normal [facility] Comment on above: Order Comment: 411.2 Performed By: #### L 300.3900 ####[facility] [address] [place], [place], [phone](778) PT Coag (PPP) [Time] 35.4 s High 11.7-14.9 [facility] Comment on above: Order Comment: 411.2 Performed By: #### L 300.3900 ####[facility] [address] [place], [place], [phone](044) Prothrombin timeOrdered By: Kvng Crisostomo on 05-19-2024 PT Coag (PPP) [Time] 35.4 s High 11.7-14.9 [facility] International normalized rat io (INR) calculationOrdered By: Kvng Crisostomo on 05-15-2024 INR Coag (Bld) [Relative time] 2.6 {INR} [facility] Prothrombin Time w/INRon INR Coag (PPP) [Relative time] 2.6 {INR} Normal [facility] Comment on above: Order Comment: 411.2 Performed By: #### L 300.3900 ####[facility] [address] [place], [place], [phone] PT Coag (PPP) [Time] 28.7 s High 11.7-14.9 [facility] Comment on above: Order Comment: 411.2 Performed By: #### L 300.3900 ####[facility] [address], [address] Prothrombin timeOrdered By: Kvng Crisostomo on 05-15-2024 PT Coag (PPP) [Time] 28.7 s High 11.7-14.9 [facility] International normalized rat io (INR) calculationOrdered By: Carlos Cavazos on 05-12-2024 INR Coag (Bld) [Relative time] 2.1 {INR} [facility] Prothrombin Time w/INRon INR Coag (PPP) [Relative time] 2.1 {INR} Normal [facility] Comment on above: Order Comment: 411-2 Performed By: #### L 300.3900 ####[facility] [address] [place], [address] PT Coag (PPP) [Time] 24.1 s High 11.7-14.9 [facility] Comment on above: Order Comment: 411-2 Performed By: #### L 300.3900 ####[facility] [address] [place], [place], [phone] Prothrombin timeOrdered By: Carlos Cavazos on 05-12-2024 PT Coag (PPP) [Time] 24.1 s High 11.7-14.9 [facility] International normalized rat io (INR) calculationOrdered By: Kvng Crisostomo on 05-09-2024 INR Coag (Bld) [Relative time] 3.4 {INR} [facility] Prothrombin Time w/INRon INR Coag (PPP) [Relative time] 3.4 {INR} Normal [facility] Comment on above: Order Comment: 411.2 Performed By: #### L 300.3900 ####[facility] [address] [place], [place], [phone] PT Coag (PPP) [Time] 35.4 s High 11.7-14.9 [facility] Comment on above: Order Comment: 411.2 Performed By: #### L 300.3900 ####[facility] [address] [place], [place], [phone] Prothrombin timeOrdered By: Kvng Crisostomo on 05-09-2024 PT Coag (PPP) [Time] 35.4 s High 11.7-14.9 [facility] International normalized rat io (INR) calculationOrdered By: Kvng Crisostomo on 05-08-2024 INR Coag (Bld) [Relative time] 4.1 {INR} High [facility] Comment on above: CRITICAL VALUE CASEY D TO [facility]05/08/24 0950 Karen Jamison.RESULTS READ BACK BY SAME. Prothrombin Time w/INRon INR Coag (PPP) [Relative time] 4.1 {INR} Invalid Interpretation Code [facility] Comment on above: Order Comment: 411.2 Result Comment: CRIT ICAL VALUE CALLED TO COBY HAIRSTONND05/08/24 0950 Karen Jamison.RESULTS READ BACK BY SAME. Performed By: #### L 300.3900 ####[facility] [address] [place], [address] PT Coag (PPP) [Time] 40.8 s High 11.7-14.9 [facility] Comment on above: Order Comment: 411.2 Performed By: #### L 300.3900 ####[facility] [address] [place], [address] Prothrombin timeOrdered By: Babbaljeet Andressa on 05-08-2024 PT Coag (PPP) [Time] 40.8 s High 11.7-14.9 [facility] International normalized rat io (INR) calculationOrdered By: Babbaljeet Crisostomo on 05-05-2024 INR Coag (Bld) [Relative time] 3.2 {INR} [facility] Prothrombin Time w/INRon INR Coag (PPP) [Relative time] 3.2 {INR} Normal [facility] Comment on above: Order Comment: 411.2 Performed By: #### L 300.3900 ####[facility] [address] [place], [address] PT Coag (PPP) [Time] 32.5 s High 11.7-14.9 [facility] Comment on above: Order Comment: 411.2 Performed By: #### L 300.3900 ####[facility] [address] [place], [address] Prothrombin timeOrdered By: Babbaljeet Crisostomo on 05-05-2024 PT Coag (PPP) [Time] 32.5 s High 11.7-14.9 [facility] International normalized rat io (INR) calculationOrdered By: Babbaljeet Crisostomo on 05-01-2024 INR Coag (Bld) [Relative time] 3.1 {INR} [facility] Prothrombin Time w/INRon INR Coag (PPP) [Relative time] 3.1 {INR} Normal [facility] Comment on above: Order Comment: 411.2 Performed By: #### L 300.3900 ####[facility] [address] [place], [address] PT Coag (PPP) [Time] 31.9 s High 11.7-14.9 [facility] Comment on above: Order Comment: 411.2 Performed By: #### L 300.3900 ####[facility] [address] [place], [address] Prothrombin timeOrdered By: Kvng Crisostomo on 05-01-2024 PT Coag (PPP) [Time] 31.9 s High 11.7-14.9 [facility] International normalized rat io (INR) calculationOrdered By: Carlos Cavazos on 04-28-2024 INR Coag (Bld) [Relative time] 2.6 {INR} [facility] Prothrombin Time w/INRon INR Coag (PPP) [Relative time] 2.6 {INR} Normal [facility] Comment on above: Order Comment: 411-2 Performed By: #### L 300.3900 ####[facility] [address] [place], [address] PT Coag (PPP) [Time] 27.3 s High 11.7-14.9 [facility] Comment on above: Order Comment: 411-2 Performed By: #### L 300.3900 ####[facility] [address] [place], [address] Prothrombin timeOrdered By: Carlos Cavazos on 04-28-2024 PT Coag (PPP) [Time] 27.3 s High 11.7-14.9 [facility] International normalized rat io (INR) calculationOrdered By: Kvng Crisostomo on 04-24-2024 INR Coag (Bld) [Relative time] 3.6 {INR} [facility] Prothrombin Time w/INRon INR Coag (PPP) [Relative time] 3.6 {INR} Normal [facility] Comment on above: Order Comment: 411.2 Performed By: #### L 300.3900 ####[facility] [address] [place], [address] PT Coag (PPP) [Time] 35.6 s High 11.7-14.9 [facility] Comment on above: Order Comment: 411.2 Performed By: #### L 300.3900 ####[facility] [address] [place], [address] Prothrombin timeOrdered By: Kvng Crisostomo on 04-24-2024 PT Coag (PPP) [Time] 35.6 s High 11.7-14.9 [facility] International normalized rat io (INR) calculationOrdered By: Carlos Cavazos on 04-21-2024 INR Coag (Bld) [Relative time] 2.8 {INR} [facility] Prothrombin Time w/INRon INR Coag (PPP) [Relative time] 2.8 {INR} Normal [facility] Comment on above: Order Comment: 411-2 Performed By: #### L 300.3900 ####[facility] [address] [place], [address] PT Coag (PPP) [Time] 29.4 s High 11.7-14.9 [facility] Comment on above: Order Comment: 411-2 Performed By: #### L 300.3900 ####[facility] [address] [place], [address] Prothrombin timeOrdered By: Carlos Cavazos on 04-21-2024 PT Coag (PPP) [Time] 29.4 s High 11.7-14.9 [facility] International normalized rat io (INR) calculationOrdered By: Kvng Crisostomo on 04-17-2024 INR Coag (Bld) [Relative time] 3.1 {INR} [facility] Prothrombin Time w/INRon INR Coag (PPP) [Relative time] 3.1 {INR} Normal [facility] Comment on above: Order Comment: 411.2 Performed By: #### L 300.3900 ####[facility] [address] [place], [place], [phone](100) Prothrombin timeOrdered By: Kvng Crisostomo on 04-17-2024 PT Coag (PPP) [Time] 31.3 s High 11.7-14.9 [facility] Comment on above: Order Comment: 411.2 Performed By: #### L 300.3900 ####[facility] [address] [place], [place], [phone](045) International normalized rat io (INR) calculationOrdered By: Kvng Crisostomo on 04-14-2024 INR Coag (Bld) [Relative time] 3.3 {INR} [facility] Prothrombin Time w/INRon INR Coag (PPP) [Relative time] 3.3 {INR} Normal [facility] Comment on above: Order Comment: 411.2 Performed By: #### L 300.3900 ####[facility] [address] [place], [place], [phone](526) PT Coag (PPP) [Time] 33.2 s High 11.7-14.9 [facility] Comment on above: Order Comment: 411.2 Performed By: #### L 300.3900 ####[facility] [address] [place], [place], [phone](887) Prothrombin timeOrdered By: Kvng Crisostomo on 04-14-2024 PT Coag (PPP) [Time] 33.2 s High 11.7-14.9 [facility] International normalized rat io (INR) calculationOrdered By: Kvng Crisostomo on 04-10-2024 INR Coag (Bld) [Relative time] 2.8 {INR} [facility] Prothrombin Time w/INRon INR Coag (PPP) [Relative time] 2.8 {INR} Normal [facility] Comment on above: Order Comment: 411.2 Performed By: #### L 300.3900 ####[facility] [address] [place], [address] PT Coag (PPP) [Time] 29.2 s High 11.7-14.9 [facility] Comment on above: Order Comment: 411.2 Performed By: #### L 300.3900 ####[facility] [address] [place], [address] Prothrombin timeOrdered By: Kvng Crisostomo on 04-10-2024 PT Coag (PPP) [Time] 29.2 s High 11.7-14.9 [facility] normalized rat io (INR) calculationOrdered By: Carlos Cavazos on 04-07-2024 INR Coag (Bld) [Relative time] 2.7 {INR} [facility] Prothrombin Time w/INRon INR Coag (PPP) [Relative time] 2.7 {INR} Normal [facility] Comment on above: Order Comment: 411-2 Performed By: #### L 300.3900 ####[facility] [address] [place], [address] PT Coag (PPP) [Time] 28.1 s High 11.7-14.9 [facility] Comment on above: Order Comment: 411-2 Performed By: #### L 300.3900 ####[facility] [address] [place], [address] Prothrombin timeOrdered By: Carlos Cavazos on 04-07-2024 PT Coag (PPP) [Time] 28.1 s High 11.7-14.9 [facility] normalized rat io (INR) calculationOrdered By: Kvng Crisostomo on 04-04-2024 INR Coag (Bld) [Relative time] 2.8 {INR} [facility] Prothrombin Time w/INRon INR Coag (PPP) [Relative time] 2.8 {INR} Normal [facility] Comment on above: Order Comment: 411.2 Performed By: #### L 300.3900 ####[facility] [address] [place], [address] PT Coag (PPP) [Time] 28.9 s High 11.7-14.9 [facility] Comment on above: Order Comment: 411.2 Performed By: #### L 300.3900 ####[facility] [address] [place], [address] Prothrombin timeOrdered By: Kvng Crisostomo on 04-04-2024 PT Coag (PPP) [Time] 28.9 s High 11.7-14.9 [facility] normalized rat io (INR) calculationOrdered By: Carlos Cavazos on 03-31-2024 INR Coag (Bld) [Relative time] 2.6 {INR} [facility] Prothrombin Time w/INRon INR Coag (PPP) [Relative time] 2.6 {INR} Normal [facility] Comment on above: Order Comment: 411-2 Performed By: #### L 300.3900 ####[facility] [address] [place], [address] PT Coag (PPP) [Time] 27.3 s High 11.7-14.9 [facility] Comment on above: Order Comment: 411-2 Performed By: #### L 300.3900 ####[facility] [address] [place], [address] Prothrombin timeOrdered By: Carlos Cavazos on 03-31-2024 PT Coag (PPP) [Time] 27.3 s High 11.7-14.9 [facility] normalized rat io (INR) calculationOrdered By: [place] [facility] on 03-27-2024 INR Coag (Bld) [Relative time] 2.2 {INR} [facility] Prothrombin Time w/INRon INR Coag (PPP) [Relative time] 2.2 {INR} Normal [facility] Comment on above: Order Comment: 411.2 Performed By: #### L 300.3900 ####[facility] [address] [place], [address] PT Coag (PPP) [Time] 24.3 s High 11.7-14.9 [facility] Comment on above: Order Comment: 411.2 Performed By: #### L [id number] ####[facility] [address] [place], [address] Prothrombin timeOrdered By: [place] [facility] on 03-27-2024 PT Coag (PPP) [Time] 24.3 s High 11.7-14.9 [facility] normalized rat io (INR) calculationOrdered By: Kvng Crisostomo on 03-24-2024 INR Coag (Bld) [Relative time] 1.8 {INR} [facility] Prothrombin Time w/INRon INR Coag (PPP) [Relative time] 1.8 {INR} Normal [facility] Comment on above: Order Comment: 411.2 Performed By: #### L 300.3900 ####[facility] [address] [place], [address] PT Coag (PPP) [Time] 20.7 s High 11.7-14.9 [facility] Comment on above: Order Comment: 411.2 Performed By: #### L 300.3900 ####[facility] [address] [place], [address] Prothrombin timeOrdered By: Kvng Crisostomo on 03-24-2024 PT Coag (PPP) [Time] 20.7 s High 11.7-14.9 [facility] normalized rat io (INR) calculationOrdered By: [place] [facility] on 03-20-2024 INR Coag (Bld) [Relative time] 1.8 {INR} [facility] Prothrombin Time w/INRon INR Coag (PPP) [Relative time] 1.8 {INR} Normal [facility] Comment on above: Order Comment: 411.2 Performed By: #### L 300.3900 ####[facility] [address] [place], [address] PT Coag (PPP) [Time] 20.9 s High 11.7-14.9 [facility] Comment on above: Order Comment: 411.2 Performed By: #### L 300.3900 ####[facility] [address] [place], [address] Prothrombin timeOrdered By: [place] [facility] on 03-20-2024 PT Coag (PPP) [Time] 20.9 s High 11.7-14.9 [facility] normalized rat io (INR) calculationOrdered By: Kvng Crisostomo on 03-19-2024 INR Coag (Bld) [Relative time] 2.4 {INR} [facility] Prothrombin Time w/INRon INR Coag (PPP) [Relative time] 2.4 {INR} Normal [facility] Comment on above: Order Comment: 411.2 Performed By: #### L 300.3900 ####[facility] [address] [place], [address] PT Coag (PPP) [Time] 26.4 s High 11.7-14.9 [facility] Comment on above: Order Comment: 411.2 Performed By: #### L [id number] ####[facility] [address] [place], [address] Prothrombin timeOrdered By: Kvng Crisostomo on 03-19-2024 PT Coag (PPP) [Time] 26.4 s High 11.7-14.9 [facility] normalized rat io (INR) calculationOrdered By: [place] [facility] on 03-18-2024 INR Coag (Bld) [Relative time] 3.2 {INR} [facility] Prothrombin timeOrdered By: [place] [facility] on 03-18-2024 PT Coag (PPP) [Time] 32.3 s High 11.7-14.9 [facility] normalized rat io (INR) calculationOrdered By: [place] [facility] on 03-17-2024 INR Coag (Bld) [Relative time] 3.6 {INR} [facility] Prothrombin timeOrdered By: [place] [facility] on 03-17-2024 PT Coag (PPP) [Time] 35.7 s High 11.7-14.9 [facility] normalized rat io (INR) calculationOrdered By: Carlos Cavazos on 03-14-2024 INR Coag (Bld) [Relative time] 3.5 {INR} [facility] Prothrombin timeOrdered By: Carlos Cavazos on 03-14-2024 PT Coag (PPP) [Time] 35.0 s High 11.7-14.9 [facility] normalized rat io (INR) calculationOrdered By: [place] [facility] on 03-13-2024 INR Coag (Bld) [Relative time] 3.2 {INR} [facility] Prothrombin timeOrdered By: [place] [facility] on 03-13-2024 PT Coag (PPP) [Time] 32.2 s High 11.7-14.9 [facility] Office Visiton 09-13-2023 Follow-up visit [id number] GurpreetTamie 1950 [address] Provider Department Center 09/13/2023 [id number]-HQYHROREBECCA BUCK [facility] None Family History Problem Relation Age of Onset Heart disease Father Cancer Mother Family Status - Relation Status Age at Father Mother Level of Service:72841 [place] OFFICE/OUTPATIENT ESTABLISHED MOD MDM 30 MIN Reason for Visit and Comments: left flank pain [Other] - 8/10 pain when touched Normal [facility] Progress Noteon 09-13-2023 Progress Note Walt [...] Hydrocephalus, adult (CMS/HCC) (HCC) Kidney stone Neuropathy TRIM SETTER HELPER (ventriculoperitoneal) shunt status Past Surgical History: Procedure [...] 03/02/2022 CR (more content not included)... Normal [facility] CT ABDOMEN PELVIS WO IV CONT Kelly 09-07-2023 CT ABDOMEN PELVIS WO IV CONTRAST Patient Name[facility]REW [facility]UENT[facility] 1950 [id number] Exam Date/Time: 09/06/2023 18:14 Procedure: CT ABDOMEN [...] kidney stone; pt has a hernia [facility] 36on 08-29-2023 36 Lm on daughters vm t o advise them to call the number for the loss prevention/safety district manager to get clarification, and to call back with further questions [place] [address]on 08-27-2023 36 Yes, they will need to call the number given to them. [facility] 36 Please advise [address] 08-21-2023 36 Name of caller: Zion holt Contact phone number: [phone] Relationship to Patient: patient Provider: MD Quinn Practice: [facility] Chief Complaint/Reason for Call: Shanthi called [...] to reach out to call Maury Cedeño Motor Vehicle Lecturer at [facility] [phone] to get clarifications. TEA did reach back out to [facility] and advised and provider Maury's #. Please advise Best time of day caller can be reached: Any Patient advised that office/PCP has 24-48 business hours to return their call: N/A Normal [facility] Laboratory - CoagulationOrde red By: Carlos Cavazos on 08-21-2023 INR Coag (Bld) [Relative time] 2.7 {INR} [facility] PT Coag (PPP) [Time] 28.9 s 11.7-14.9 [facility] Office Visiton 08-13-2023 Follow-up visit [id number] Tamie Sifuentes cheng Gonzalez 1950 [address] [place] Provider Department Center 08/13/2023 [id number] BUCK [facility] None Family History Problem Relation Age of Onset Heart disease Father Cancer Mother Family Status - Relation Status Age at Father Mother Level of Service:36959 [place] OFFICE/OUTPATIENT NEW MODERATE MDM 45 MINUTES Reason for Visit and Comments: New Patient [542] - Bilateral flank pain, hx of kidney stones Nephrolithiasis [437617] Normal [facility] Progress Noteon 08-13-2023 Progress Note Walt [...] Hydrocephalus, adult (CMS/HCC) (HCC) Kidney stone Neuropathy TRIM SETTER HELPER (ventriculoperitoneal) shunt status Past Surgical History: Past [...] CT ab (more content not included)... Normal [facility] No Panel InformationOrdered By: Carlos Cavazos on 08-03-2023 Levetiracetam (Keppra) Level 32.4 ug/mL 10.0-40.0 [facility] Comment on above: Performed at: [address] [id number] Director: Alpesh Vázquez MD, Phone: [phone] Basophil percentageOrdered B y: Carlos Cavazos on 07-20-2023 Chloride [Moles/Vol] 106 mmol/L 98-107 [facility] Glucose [Mass/Vol] 98 mg/dL 74-106 [facility] Hemoglobin (Bld) [Mass/Vol] 12.5 g/dL 13.0-16.5 [facility] Potassium [Moles/Vol] 4.3 mmol/L 3.5-5.1 [facility] Sodium [Moles/Vol] 135 mmol/L 136-145 [facility] WBC (Bld) [#/Vol] 13.0 10*3/uL 4.4-11.[address] [facility] Determination of erythrocyte mean corpuscular volume (MCV)Ordered By: Carlos Cavazos on 07-20-2023 MCV (RBC) [Entitic vol] 86.2 fL 80-94 [facility] Erythrocyte distribution wid th ratioOrdered By: Carlos Cavazos on 07-20-2023 Erythrocyte distribution width (RBC) [Ratio] 15.3 % 11.6-14.6 [facility] Erythrocyte distribution wid th standard deviationOrdered By: Carlos Cavazos on 07-20-2023 Erythrocyte distribution width (RBC) [Entitic vol] 48.1 fL 35.1-43.9 [facility] Hematocrit Auto (Bld) [Volum e fraction]Ordered By: Carlos Cavazos on 07-20-2023 Hematocrit (Bld) [Volume fraction] 39.9 % 40-54 [facility] Laboratory - Chemistry and C hemistry - challengeOrdered By: Carlos Cavazos on 07-20-2023 CO2 [Moles/Vol] 24.0 mmol/L 21.0-32.0 [facility] Urea nitrogen/Creatinine [Mass ratio] 24.6 mg/mg 10-20 [facility] Laboratory - Hematology and Cell countsOrdered By: Carlos Cavazos on 07-20-2023 MCH (RBC) [Entitic mass] 27.0 pg 27.0-32.0 [facility] MCHC (RBC) [Mass/Vol] 31.3 g/dL 32-36 [facility] Platelet mean volume (Bld) [Entitic vol] 10.7 fL 6.2-12.0 [facility] Platelets (Bld) [#/Vol] 260 10*3/uL 150-450 [facility] No Panel InformationOrdered By: Carlos Cavazos on 03-15-2024 Estimated GFR (MDRD) Amer 114 mL/min >60 [facility] Comment on above: GFR Calc Estimated GFR (MDRD) Non-Af Amer 94 mL/min >60 [facility] Comment on above: Non- GFR Calc RBC Auto (Bld) [#/Vol]Ordere d By: Carlos Cavazos on 07-20-2023 RBC (Bld) [#/Vol] 4.63 10*6/uL 4.6-6.[address] [facility] Serum or plasma calcium oral urement (mass/volume)Ordered By: Carlos Cavazos on 07-20-2023 Calcium [Mass/Vol] 8.6 mg/dL 8.5-10.1 [facility] Serum or plasma creatinine m easurement (mass/volume)Ordered By: Carlos Cavazos on 07-20-2023 Creatinine [Mass/Vol] 0.85 mg/dL 0.70-1.30 [facility] Comment on above: The validity of the calculated GFR & GFRAA in patients over 70 years has not been determined. Clinical correlation is essential. Serum or plasma urea nitroge n measurement (mass/volume)Ordered By: Carlos Cavazos on 07-20-2023 Urea nitrogen [Mass/Vol] 21 mg/dL 7-18 [facility] Thin prep Papanicolaou smear with manual screeningOrdered By: Carlos Cavazos on 07-20-2023 Thin prep Papanicolaou smear with manual screening 5 5-15 [facility] Basophil percentageOrdered B y: Carlos Cavazos on 07-18-2023 Chloride [Moles/Vol] 102 mmol/L 98-107 [facility] Glucose [Mass/Vol] 96 mg/dL 74-106 [facility] Hemoglobin (Bld) [Mass/Vol] 12.3 g/dL 13.0-16.5 [facility] Potassium [Moles/Vol] 4.2 mmol/L 3.5-5.1 [facility] Sodium [Moles/Vol] 136 mmol/L 136-145 [facility] WBC (Bld) [#/Vol] 14.7 10*3/uL 4.4-11.[address] [facility] Determination of erythrocyte mean corpuscular volume (MCV)Ordered By: Carlos Cavazos on 07-18-2023 MCV (RBC) [Entitic vol] 85.4 fL 80-94 [facility] Erythrocyte distribution wid th ratioOrdered By: Carlos Cavazos on 07-18-2023 Erythrocyte distribution width (RBC) [Ratio] 15.1 % 11.6-14.6 [facility] Erythrocyte distribution wid th standard deviationOrdered By: Carlos Cavazos on 07-18-2023 Erythrocyte distribution width (RBC) [Entitic vol] 47.3 fL 35.1-43.9 [facility] Hematocrit Auto (Bld) [Volum e fraction]Ordered By: Carlos Cavazos on 07-18-2023 Hematocrit (Bld) [Volume fraction] 39.3 % 40-54 [facility] Laboratory - Chemistry and C hemistry - challengeOrdered By: Carlos Cavazos on 07-18-2023 CO2 [Moles/Vol] 27.0 mmol/L 21.0-32.0 [facility] Urea nitrogen/Creatinine [Mass ratio] 24.4 mg/mg 10-20 [facility] Laboratory - Hematology and Cell countsOrdered By: Carlos Cavazos on 07-18-2023 MCH (RBC) [Entitic mass] 26.7 pg 27.0-32.0 [facility] MCHC (RBC) [Mass/Vol] 31.3 g/dL 32-36 [facility] Platelet mean volume (Bld) [Entitic vol] 10.3 fL 6.2-12.0 [facility] Platelets (Bld) [#/Vol] 288 10*3/uL 150-450 [facility] No Panel InformationOrdered By: Carlos Cavazos on 07-18-2023 Estimated GFR (MDRD) Amer 113 mL/min >60 [facility] Comment on above: GFR Calc Estimated GFR (MDRD) Non-Af Amer 93 mL/min >60 [facility] Comment on above: Non- GFR Calc RBC Auto (Bld) [#/Vol]Ordere d By: Carlos Cavazos on 07-18-2023 RBC (Bld) [#/Vol] 4.60 10*6/uL 4.6-6.[address] [facility] Serum or plasma calcium oral urement (mass/volume)Ordered By: Carlos Cavazos on 07-18-2023 Calcium [Mass/Vol] 8.9 mg/dL 8.5-10.1 [facility] Serum or plasma creatinine m easurement (mass/volume)Ordered By: Carlos Cavazos on 07-18-2023 Creatinine [Mass/Vol] 0.86 mg/dL 0.70-1.30 [facility] Comment on above: The validity of the calculated GFR & GFRAA in patients over 70 years has not been determined. Clinical correlation is essential. Serum or plasma urea nitroge n measurement (mass/volume)Ordered By: Carlos Cavazos on 07-18-2023 Urea nitrogen [Mass/Vol] 21 mg/dL 7-18 [facility] Thin prep Papanicolaou smear with manual screeningOrdered By: Carlos Cavazos on 07-18-2023 Thin prep Papanicolaou smear with manual screening 7 5-15 [facility] Basophil percentageOrdered B y: Carlos Cavazos on 07-17-2023 Basophil percentage 0-5 SEEN /hpf 0-5 [facility] Bilirubin Test strip Ql (U)O rdered By: Carlos Cavazos on 07-17-2023 Bilirubin Ql (U) Negative Negative [facility] Calcium oxalate crystals det ection in urine sediment by light microscopyOrdered By: Carlos Cavazos on 07-17-2023 Calcium oxalate crystals LM Ql (Urine sed) 1+ /hpf [facility] Culture, urineOrdered By: Sharif Crouch on 07-17-2023 Bacteria identified Cx Nom (U) Positive [facility] Ketones Test strip Ql (U)Ord ered By: Carlos Cavazos on 07-17-2023 Ketones Ql (U) Negative Negative [facility] Mucus LM Ql (Urine sed)Order ed By: Carlos Cavazos on 07-17-2023 Mucus Ql (Urine sed) 0 SEEN /hpf [facility] Nitrite Test strip Ql (U)Ord ered By: Carlos Cavazos on 07-17-2023 Nitrite Ql (U) Negative Negative [facility] No Panel InformationOrdered By: Carlos Cavazos on 07-17-2023 Urine RBC 0 SEEN /hpf 0-5 [facility] Protein Test strip Ql (U)Ord ered By: Carlos Cavazos on 07-17-2023 Protein Ql (U) Negative Negative [facility] Squamous epithelial cells de tection in urine sediment by light microscopyOrdered By: Carlos Cavazos on 07-17-2023 Epithelial cells.squamous LM Ql (Urine sed) 0-5 SEEN /hpf 0-5 [facility] Urine blood detectionOrdered By: Carlos Cavazos on 07-17-2023 RBC Ql (U) Negative Negative [facility] Urine clarityOrdered By: Ted Cavazos on 07-17-2023 Clarity (U) Clear Clear [facility] Urine color determinationOrd ered By: Carlos Cavazos on 07-17-2023 Color (U) Yellow Yellow [facility] Urine glucose detectionOrder ed By: Carlos Cavazos on 07-17-2023 Glucose Ql (U) Normal mg/dl Normal [facility] Urine leukocyte esterase det ection by dipstickOrdered By: Carlos Cavazos on 07-17-2023 Leukocyte esterase Test strip Ql (U) 25 /ul Negative [facility] Urine pHOrdered By: Carlos flores on 07-17-2023 pH (U) 6.0 [pH] 5.0 - 8.0 [facility] Urine sediment bacteria coun t by microscopy (number/high power field)Ordered By: Carlos Cavazos on 07-17-2023 Bacteria LM.HPF (Urine sed) [#/Area] 0 /[HPF] None Seen [facility] Urine specific gravity measu rementOrdered By: Carlos Cavazos on 07-17-2023 Specific gravity (U) [Rel density] 1.020 1.002-1.030 [facility] Urine urobilinogen measureme ntOrdered By: Carlos Cavazos on 07-17-2023 Urobilinogen Ql (U) Normal mg/dl Normal [facility] Absolute lymphocyte countOrd ered By: Carlos Cavazos on 07-16-2023 Lymphocytes Auto (Unsp spec) [#/Vol] 6.02 10*3/uL 0.83-4.51 [facility] Automated lymphocyte count a s percentage of total leukocytesOrdered By: Carlos Cavazos on 07-16-2023 Lymphocytes/100 WBC Auto (Unsp spec) 49.1 % 19-41 [facility] Basophil percentageOrdered B y: Carlos Cavazos on 07-16-2023 Basophils/100 WBC (Bld) 0.6 % 0-1 [facility] Chloride [Moles/Vol] 105 mmol/L 98-107 [facility] Eosinophils/100 WBC (Bld) 2.0 % 0-5 [facility] Glucose [Mass/Vol] 93 mg/dL 74-106 [facility] Hemoglobin (Bld) [Mass/Vol] 12.1 g/dL 13.0-16.5 [facility] Monocytes/100 WBC (Bld) 5.3 % 0-10 [facility] Neutrophils (Bld) [#/Vol] 5.2 10*3/uL 2.0-7.7 [facility] Neutrophils/100 WBC (Bld) 42.8 % 47-70 [facility] Potassium [Moles/Vol] 4.3 mmol/L 3.5-5.1 [facility] Sodium [Moles/Vol] 138 mmol/L 136-145 [facility] WBC (Bld) [#/Vol] 12.3 10*3/uL 4.4-11.[address] [facility] Blood manual differential co mment interpretation (narrative result)Ordered By: Carlos Cavazos on 07-16-2023 Manual differential comment Shemar (Bld) [Interp] SCANNED [facility] Determination of erythrocyte mean corpuscular volume (MCV)Ordered By: Carlos Cavazos on 07-16-2023 MCV (RBC) [Entitic vol] 86.8 fL 80-94 [facility] Erythrocyte distribution wid th ratioOrdered By: Carlos Cavazos on 07-16-2023 Erythrocyte distribution width (RBC) [Ratio] 15.3 % 11.6-14.6 [facility] Erythrocyte distribution wid th standard deviationOrdered By: Carlos Cavazos on 07-16-2023 Erythrocyte distribution width (RBC) [Entitic vol] 48.9 fL 35.1-43.9 [facility] Hematocrit Auto (Bld) [Volum e fraction]Ordered By: Carlos Cavazos on 07-16-2023 Hematocrit (Bld) [Volume fraction] 38.7 % 40-54 [facility] Immature granulocytes/100 WB C Auto (Bld)Ordered By: Carlos Cavazos on 07-16-2023 Immature granulocytes/100 WBC (Bld) 0.200 % 0.0-0.9 [facility] Comment on above: IG% - Immature Granu locytes (promyelocytes, myelocytes and metamyelocytes) > 1% indicates that a LEFT SHIFT is Present. Laboratory - Chemistry and C hemistry - challengeOrdered By: Carlos Cavazos on 07-16-2023 CO2 [Moles/Vol] 25.0 mmol/L 21.0-32.0 [facility] Urea nitrogen/Creatinine [Mass ratio] 21.0 mg/mg 10-20 [facility] Laboratory - CoagulationOrde red By: Carlos Cavazos on 07-16-2023 INR Coag (Bld) [Relative time] 2.4 {INR} [facility] PT Coag (PPP) [Time] 25.7 s 11.7-14.9 [facility] Laboratory - Hematology and Cell countsOrdered By: Carlos Cavazos on 07-16-2023 MCH (RBC) [Entitic mass] 27.1 pg 27.0-32.0 [facility] MCHC (RBC) [Mass/Vol] 31.3 g/dL 32-36 [facility] Nucleated RBC/100 WBC (Bld) [Ratio] 0 % 0-5 [facility] Platelet mean volume (Bld) [Entitic vol] 10.5 fL 6.2-12.0 [facility] Platelets (Bld) [#/Vol] 289 10*3/uL 150-450 [facility] No Panel InformationOrdered By: Carlos Cavazos on 07-16-2023 Estimated GFR (MDRD) Amer 106 mL/min >60 [facility] Comment on above: GFR Calc Estimated GFR (MDRD) Non-Af Amer 88 mL/min >60 [facility] Comment on above: Non- GFR Calc Reactive Lymphocytes 1+ [facility] RBC Auto (Bld) [#/Vol]Ordere d By: Carlos Cavazos on 07-16-2023 RBC (Bld) [#/Vol] 4.46 10*6/uL 4.6-6.[address] [facility] Serum or plasma calcium oral urement (mass/volume)Ordered By: Carlos Cavazos on 07-16-2023 Calcium [Mass/Vol] 9.0 mg/dL 8.5-10.1 [facility] Serum or plasma creatinine m easurement (mass/volume)Ordered By: Carlos Cavazos on 07-16-2023 Creatinine [Mass/Vol] 0.90 mg/dL 0.70-1.30 [facility] Comment on above: The validity of the calculated GFR & GFRAA in patients over 70 years has not been determined. Clinical correlation is essential. Serum or plasma urea nitroge n measurement (mass/volume)Ordered By: Carlos Cavazos on 07-16-2023 Urea nitrogen [Mass/Vol] 19 mg/dL 7-18 [facility] Thin prep Papanicolaou smear with manual screeningOrdered By: Carlos Cavazos on 07-16-2023 Thin prep Papanicolaou smear with manual screening 8 5-15 [facility] Absolute lymphocyte countOrd ered By: Carlos Cavazos on 07-13-2023 Lymphocytes Auto (Unsp spec) [#/Vol] 5.44 10*3/uL 0.83-4.51 [facility] Automated lymphocyte count a s percentage of total leukocytesOrdered By: Carlos Cavazos on 07-13-2023 Lymphocytes/100 WBC Auto (Unsp spec) 47.3 % 19-41 [facility] Basophil percentageOrdered B y: Carlos Cavazos on 07-13-2023 Basophils/100 WBC (Bld) 0.4 % 0-1 [facility] Chloride [Moles/Vol] 107 mmol/L 98-107 [facility] Eosinophils/100 WBC (Bld) 1.7 % 0-5 [facility] Glucose [Mass/Vol] 96 mg/dL 74-106 [facility] Hemoglobin (Bld) [Mass/Vol] 13.5 g/dL 13.0-16.5 [facility] Monocytes/100 WBC (Bld) 4.3 % 0-10 [facility] Neutrophils (Bld) [#/Vol] 5.3 10*3/uL 2.0-7.7 [facility] Neutrophils/100 WBC (Bld) 46.0 % 47-70 [facility] Potassium [Moles/Vol] 4.0 mmol/L 3.5-5.1 [facility] [facility] S[facility] [Moles/Vol] 139 mmol/L 136-145 [facility] WBC (Bld) [#/Vol] 11.5 10*3/uL 4.4-11.[address] [facility] Determination of erythrocyte mean corpuscular volume (MCV)Ordered By: Carlos Cavazos on 07-13-2023 MCV (RBC) [Entitic vol] 86.1 fL 80-94 [facility] Erythrocyte distribution wid th ratioOrdered By: Carlos Cavazos on 07-13-2023 Erythrocyte distribution width (RBC) [Ratio] 15.2 % 11.6-14.6 [facility] Erythrocyte distribution wid th standard deviationOrdered By: Carlos Cavazos on 07-13-2023 Erythrocyte distribution width (RBC) [Entitic vol] 48.0 fL 35.1-43.9 [facility] Hematocrit Auto (Bld) [Volum e fraction]Ordered By: Carlos Cavazos on 07-13-2023 Hematocrit (Bld) [Volume fraction] 42.2 % 40-54 [facility] Immature granulocytes/100 WB C Auto (Bld)Ordered By: Carlos Cavazos on 07-13-2023 Immature granulocytes/100 WBC (Bld) 0.300 % 0.0-0.9 [facility] Comment on above: IG% - Immature Granu locytes (promyelocytes, myelocytes and metamyelocytes) > 1% indicates that a LEFT SHIFT is Present. Laboratory - Chemistry and C hemistry - challengeOrdered By: Carlos Cavazos on 07-13-2023 CO2 [Moles/Vol] 26.0 mmol/L 21.0-32.0 [facility] Urea nitrogen/Creatinine [Mass ratio] 21.8 mg/mg 10-20 [facility] Laboratory - Hematology and Cell countsOrdered By: Carlos Cavazos on 07-13-2023 MCH (RBC) [Entitic mass] 27.6 pg 27.0-32.0 [facility] MCHC (RBC) [Mass/Vol] 32.0 g/dL 32-36 [facility] Nucleated RBC/100 WBC (Bld) [Ratio] 0 % 0-5 [facility] Platelet mean volume (Bld) [Entitic vol] 10.1 fL 6.2-12.0 [facility] Platelets (Bld) [#/Vol] 279 10*3/uL 150-450 [facility] No Panel InformationOrdered By: Carlos Cavazos on 07-13-2023 Estimated GFR (MDRD) Amer 118 mL/min >60 [facility] Comment on above: GFR Calc Estimated GFR (MDRD) Non-Af Amer 98 mL/min >60 [facility] Comment on above: Non- GFR Calc Levetiracetam (Keppra) Level 25.5 ug/mL 10.0-40.0 [facility] Comment on above: Performed at: [employer] [facility] [employer] [address] [id number] Director: Alpesh Vázquez MD, Phone: [phone] RBC Auto (Bld) [#/Vol]Ordere d By: Carlos Cavazos on 07-13-2023 RBC (Bld) [#/Vol] 4.90 10*6/uL 4.6-6.[address] [facility] Serum or plasma calcium oral urement (mass/volume)Ordered By: Carlos Cavazos on 07-13-2023 Calcium [Mass/Vol] 9.1 mg/dL 8.5-10.1 [facility] Serum or plasma creatinine m easurement (mass/volume)Ordered By: Carlos Cavazos on 07-13-2023 Creatinine [Mass/Vol] 0.82 mg/dL 0.70-1.30 [facility] Comment on above: The validity of the calculated GFR & GFRAA in patients over 70 years has not been determined. Clinical correlation is essential. Serum or plasma urea nitroge n measurement (mass/volume)Ordered By: Carlos Cavazos on 07-13-2023 Urea nitrogen [Mass/Vol] 18 mg/dL 7-18 [facility] Thin prep Papanicolaou smear with manual screeningOrdered By: Carlos Cavazos on 07-13-2023 Thin prep Papanicolaou smear with manual screening 6 5-15 [facility] No Panel InformationOrdered By: Carlos Cavazos on 07-12-2023 Valproic Acid (Depakene) Level < 3 ug/mL 50-100 [facility] Laboratory - CoagulationOrde red By: Carlos Cavazos on 07-05-2023 INR Coag (Bld) [Relative time] 2.4 {INR} [facility] PT Coag (PPP) [Time] 26.3 s 11.7-14.9 [facility] Laboratory - CoagulationOrde red By: Carlos Cavazos on 07-02-2023 INR Coag (Bld) [Relative time] 1.5 {INR} [facility] PT Coag (PPP) [Time] 18.5 s 11.7-14.9 [facility] Laboratory - CoagulationOrde red By: Carlos Cavazos on 06-28-2023 INR Coag (Bld) [Relative time] 1.7 {INR} [facility] PT Coag (PPP) [Time] 20.5 s 11.7-14.9 [facility] 36on 06-25-2023 36 [facility] called in stating appt scheduled 07/10/23 [place] has to be made further out, pt being transported by cot. Changed appt to 08/13/23 per [facility] only avail time for transport, first avail with DR Buck at 10:00 AM. [facility] Laboratory - CoagulationOrde red By: Carlos Cavazos on 06-25-2023 INR Coag (Bld) [Relative time] 3.8 {INR} [facility] PT Coag (PPP) [Time] 38.2 s 11.7-14.9 [facility] Laboratory - CoagulationOrde red By: Carlos Cavazos on 06-21-2023 INR Coag (Bld) [Relative time] 3.2 {INR} [facility] PT Coag (PPP) [Time] 32.9 s 11.7-14.9 [facility] No Panel InformationOrdered By: Carlos Cavazos on 06-13-2023 Valproic Acid (Depakene) Level < 3 ug/mL 50-100 [facility] Laboratory - CoagulationOrde red By: Carlos Cavazos on 06-06-2023 PT Coag (PPP) [Time] 30.5 s 11.7-14.9 [facility] Platelet poor plasma interna tional normalized ratio (INR)Ordered By: Carlos Cavazos on 06-06-2023 INR Coag (PPP) [Relative time] 2.9 {INR} [facility] International normalized rat io (INR) calculationOrdered By: Carlos Cavazos on 05-23-2023 INR Coag (PPP) [Relative time] 2.6 {INR} [facility] Laboratory - CoagulationOrde red By: Carlos Cavazos on 05-23-2023 PT Coag (PPP) [Time] 27.7 s 11.7-14.9 [facility] Laboratory - CoagulationOrde red By: Carlos Cavazos on 05-09-2023 PT Coag (PPP) [Time] 24.1 s 11.7-14.9 [facility] Whole blood international no rmalized ratio (INR)Ordered By: Carlos Cavazos on 05-09-2023 INR Coag (Bld) [Relative time] 2.1 {INR} [facility] Laboratory - CoagulationOrde red By: Carlos Cavazos on 04-23-2023 PT Coag (PPP) [Time] 26.4 s 11.7-14.9 [facility] Whole blood international no rmalized ratio (INR)Ordered By: Carlos Cavazos on 04-23-2023 INR Coag (Bld) [Relative time] 2.4 {INR} [facility] INR in Blood by Coagulation assayOrdered By: Carlos Cavazos on 04-09-2023 INR Coag (Bld) [Relative time] 2.1 {INR} [facility] Laboratory - CoagulationOrde red By: Carlos Cavazos on 04-09-2023 PT Coag (PPP) [Time] 23.9 s 11.7-14.9 [facility] INR in Blood by Coagulation assayOrdered By: Carlos Cavazos on 04-02-2023 INR Coag (Bld) [Relative time] 2.2 {INR} [facility] Laboratory - CoagulationOrde red By: Carlos aCvazos on 04-02-2023 PT Coag (PPP) [Time] 24.5 s 11.7-14.9 [facility] INR in Blood by Coagulation assayOrdered By: Carlos Cavazos on 03-26-2023 INR Coag (Bld) [Relative time] 1.7 {INR} [facility] Laboratory - CoagulationOrde red By: Carlos Cavazos on 03-26-2023 PT Coag (PPP) [Time] 19.9 s 11.7-14.9 [facility] INR in Blood by Coagulation assayOrdered By: Carlos Cavazos on 03-22-2023 INR Coag (Bld) [Relative time] 1.3 {INR} [facility] - CoagulationOrde red By: Carlos Cavazos on 03-22-2023 PT Coag (PPP) [Time] 16.4 s 11.7-14.9 [facility] INR in Blood by Coagulation assayOrdered By: Carlos Cavazos on 03-08-2023 INR Coag (Bld) [Relative time] 2.0 {INR} [facility] - CoagulationOrde red By: Carlos Cavazos on 03-08-2023 PT Coag (PPP) [Time] 22.5 s 11.7-14.9 [facility] Laboratory - CoagulationOrde red By: Carlos Cavazos on 02-22-2023 INR Coag (Bld) [Relative time] 2.2 {INR} [facility] Comment on above: Critical Value > 4.0 Whole blood prothrombin time Ordered By: Carlos Cavazos on 02-22-2023 PT Coag (Bld) [Time] 24.0 s 11.7-14.9 [facility] INR in Blood by Coagulation assayOrdered By: Cliff Bruner on 02-15-2023 INR Coag (Bld) [Relative time] 2.0 {INR} [facility] Laboratory - CoagulationOrde red By: Cliff Bruner on 02-15-2023 PT Coag (PPP) [Time] 22.8 s 11.7-14.9 [facility] INR in Blood by Coagulation assayOrdered By: Carlos Cavazos on 02-08-2023 INR Coag (Bld) [Relative time] 2.1 {INR} [facility] Laboratory - CoagulationOrde red By: Carlos Cavazos on 02-08-2023 PT Coag (PPP) [Time] 23.5 s 11.7-14.9 [facility] INR in Blood by Coagulation assayOrdered By: Carlos Cavazos on 01-31-2023 INR Coag (Bld) [Relative time] 2.0 {INR} [facility] Laboratory - CoagulationOrde red By: Carlos Cavazos on 01-31-2023 PT Coag (PPP) [Time] 22.4 s 11.7-14.9 [facility] Laboratory - CoagulationOrde red By: Carlos Cavazos on 01-29-2023 INR Coag (Bld) [Relative time] 1.8 {INR} [facility] Comment on above: Critical Value > 4.0 Whole blood prothrombin time Ordered By: Carlos Cavazos on 01-29-2023 PT Coag (Bld) [Time] 19.9 s 11.7-14.9 [facility] INR in Blood by Coagulation assayOrdered By: Carlos Cavazos on 01-26-2023 INR Coag (Bld) [Relative time] 1.5 {INR} [facility] - CoagulationOrde red By: Carlos Cavazos on 01-26-2023 PT Coag (PPP) [Time] 18.3 s 11.7-14.9 [facility] INR in Blood by Coagulation assayOrdered By: Carlos Cavazos on 01-24-2023 INR Coag (Bld) [Relative time] 1.3 {INR} [facility] - CoagulationOrde red By: Carlos Cavazos on 01-24-2023 PT Coag (PPP) [Time] 16.2 s 11.7-14.9 [facility] Basophil percentageOrdered B y: Carlos Cavazos on 01-22-2023 Basophil percentage 0 SEEN /hpf 0-5 [facility] Bilirubin Test strip Ql (U)O rdered By: Carlos Cavazos on 01-22-2023 Bilirubin Ql (U) Negative Negative [facility] Calcium oxalate crystals det ection in urine sediment by light microscopyOrdered By: Carlos Cavazos on 01-22-2023 Calcium oxalate crystals LM Ql (Urine sed) 1+ /hpf [facility] Culture, urineOrdered By: Sharif Crouch on 01-22-2023 Bacteria identified Cx Nom (U) Positive [facility] Ketones Test strip Ql (U)Ord ered By: Carlos Cavazos on 01-22-2023 Ketones Ql (U) Negative Negative [facility] Mucus LM Ql (Urine sed)Order ed By: Carlos Cavazos on 01-22-2023 Mucus Ql (Urine sed) 1+ /hpf [facility] Nitrite Test strip Ql (U)Ord ered By: Carlos Cavazos on 01-22-2023 Nitrite Ql (U) Negative Negative [facility] Protein Test strip Ql (U)Ord ered By: Carlos Cavazos on 01-22-2023 Protein Ql (U) Negative Negative [facility] Squamous epithelial cells de tection in urine sediment by light microscopyOrdered By: Carlos Cavazos on 01-22-2023 Epithelial cells.squamous LM Ql (Urine sed) 0 SEEN /hpf 0-5 [facility] Urine blood detectionOrdered By: Carlos Cavazos on 01-22-2023 RBC Ql (U) Negative Negative [facility] RBC Ql (U) 0 SEEN /hpf 0-5 [facility] Urine clarityOrdered By: Ted Cavazos on 01-22-2023 Clarity (U) Sl. Cloudy Clear [facility] Urine color determinationOrd ered By: Carlos Cavazos on 01-22-2023 Color (U) Yellow Yellow [facility] Urine glucose detectionOrder ed By: Carlos Cavazos on 01-22-2023 Glucose Ql (U) Normal mg/dl Normal [facility] Urine leukocyte esterase det ection by dipstickOrdered By: Carlos Cavazos on 01-22-2023 Leukocyte esterase Test strip Ql (U) Negative Negative [facility] Urine pHOrdered By: Carlos flores on 01-22-2023 pH (U) 5.0 [pH] 5.0 - 8.0 [facility] Urine sediment bacteria coun t by microscopy (number/high power field)Ordered By: Carlos Cavazos on 01-22-2023 Bacteria LM.HPF (Urine sed) [#/Area] 2 /[HPF] None Seen [facility] Urine specific gravity measu rementOrdered By: Carlos Cavazos on 01-22-2023 Specific gravity (U) [Rel density] 1.025 1.002-1.030 [facility] Urobilinogen Auto test strip Ql (U)Ordered By: Carlos Cavazos on 01-22-2023 Urobilinogen Ql (U) Normal mg/dl Normal [facility] INR in Blood by Coagulation assayOrdered By: Carlos Cavazos on 01-10-2023 INR Coag (Bld) [Relative time] 2.0 {INR} [facility] Laboratory - CoagulationOrde red By: Carlos Cavazos on 01-10-2023 PT Coag (PPP) [Time] 22.6 s 11.7-14.9 [facility] INR in Blood by Coagulation assayOrdered By: Carlos Cavazos on 12-27-2022 INR Coag (Bld) [Relative time] 2.1 {INR} [facility] Laboratory - CoagulationOrde red By: Carlos Cavazos on 12-27-2022 PT Coag (PPP) [Time] 24.1 s 11.7-14.9 [facility] INR in Blood by Coagulation assayOrdered By: Carlos Cavazos on 12-21-2022 INR Coag (Bld) [Relative time] 2.4 {INR} [facility] Laboratory - CoagulationOrde red By: Carlos Cavazos on 12-21-2022 PT Coag (PPP) [Time] 26.7 s 11.7-14.9 [facility] Laboratory - CoagulationOrde red By: Carlos Cavazos on 12-14-2022 INR Coag (Bld) [Relative time] 2.3 {INR} [facility] Comment on above: Critical Value > 4.0 Whole blood prothrombin time Ordered By: Carlos Cavazos on 12-14-2022 PT Coag (Bld) [Time] 25.2 s 11.7-14.9 [facility] Laboratory - CoagulationOrde red By: Carlos Cavazos on 12-07-2022 INR Coag (Bld) [Relative time] 2.5 {INR} [facility] Comment on above: Critical Value > 4.0 Whole blood prothrombin time Ordered By: Carlos Cavazos on 12-07-2022 PT Coag (Bld) [Time] 26.9 s 11.7-14.9 [facility] Amorphous sediment detection in urine sediment by light microscopyOrdered By: Carlos Cavazos on 07-21-2023 Amorphous sediment LM Ql (Urine sed) 1+ [facility] Basophil percentageOrdered B y: Carlos Cavazos on 11-24-2022 Basophil percentage 0 SEEN /hpf 0-5 [facility] Bilirubin [Mass/Vol] 0.30 mg/dL 0.20-1.00 [facility] Comment on above: For patients on eltr ombopag therapy, use of Dimension [place] TBIL is not recommended. Chloride [Moles/Vol] 107 mmol/L 98-107 [facility] Glucose [Mass/Vol] 95 mg/dL 74-106 [facility] Potassium [Moles/Vol] 4.2 mmol/L 3.5-5.1 [facility] Protein [Mass/Vol] 6.9 g/dL 6.4-8.2 [facility] Sodium [Moles/Vol] 138 mmol/L 136-145 [facility] WBC (Bld) [#/Vol] 10.4 10*3/uL 4.4-11.[address] [facility] Bilirubin Test strip Ql (U)O rdered By: Carlos Cavazos on 11-24-2022 Bilirubin Ql (U) Negative Negative [facility] Blood erythrocytes count (nu mber/volume)Ordered By: Carlos Cavazos on 11-24-2022 RBC (Bld) [#/Vol] 4.44 10*6/uL 4.6-6.[address] [facility] Blood hemoglobin measurement (mass/volume)Ordered By: Carlos Cavazos on 11-24-2022 Hemoglobin (Bld) [Mass/Vol] 11.8 g/dL 13.0-16.5 [facility] Blood platelet mean volumeOr dered By: Carlos Cavazos on 11-24-2022 Platelet mean volume (Bld) [Entitic vol] 9.7 fL 6.2-12.0 [facility] Calcium oxalate crystals det ection in urine sediment by light microscopyOrdered By: Carlos Cavazos on 11-24-2022 Calcium oxalate crystals LM Ql (Urine sed) RARE /hpf [facility] Culture, urineOrdered By: Sharif Crouch on 11-24-2022 Bacteria identified Cx Nom (U) Positive [facility] Determination of erythrocyte mean corpuscular volume (MCV)Ordered By: Carlos Cavazos on 11-24-2022 MCV (RBC) [Entitic vol] 84.7 fL 80-94 [facility] Hematocrit Auto (Bld) [Volum e fraction]Ordered By: Carlos Cavazos on 11-24-2022 Hematocrit (Bld) [Volume fraction] 37.6 % 40-54 [facility] Ketones Test strip Ql (U)Ord ered By: Carlos Cavazos on 11-24-2022 Ketones Ql (U) Negative Negative [facility] Laboratory - Chemistry and C hemistry - challengeOrdered By: Carlos Cavazos on 11-24-2022 ALP [Catalytic activity/Vol] 103 U/L 45-117 [facility] ALT [Catalytic activity/Vol] 14 U/L 16-61 [facility] CO2 [Moles/Vol] 26.0 mmol/L 21.0-32.0 [facility] Globulin (S) [Mass/Vol] 4.0 g/dL 2.2-4.2 [facility] Urea nitrogen/Creatinine [Mass ratio] 24.1 mg/mg 10-20 [facility] Laboratory - Hematology and Cell countsOrdered By: Carlos Cavazos on 11-24-2022 Erythrocyte distribution width (RBC) [Entitic vol] 49.4 fL 35.1-43.9 [facility] Erythrocyte distribution width (RBC) [Ratio] 16.0 % 11.6-14.6 [facility] MCH (RBC) [Entitic mass] 26.6 pg 27.0-32.0 [facility] MCHC Auto (RBC) [Mass/Vol]Or dered By: Carlos Cavazos on 11-24-2022 MCHC (RBC) [Mass/Vol] 31.4 g/dL 32-36 [facility] Mucus LM Ql (Urine sed)Order ed By: Carlos Cavazos on 11-24-2022 Mucus Ql (Urine sed) 0 SEEN /hpf [facility] Nitrite Test strip Ql (U)Ord ered By: Carlos Cavazos on 11-24-2022 Nitrite Ql (U) Negative Negative [facility] No Panel InformationOrdered By: Carlos Cavazos on 11-24-2022 Estimated GFR (MDRD) Amer 118 mL/min >60 [facility] Comment on above: GFR Calc Estimated GFR (MDRD) Non-Af Amer 97 mL/min >60 [facility] Comment on above: Non- GFR Calc Platelets bldOrdered By: Ted Cavazos on 11-24-2022 Platelets (Bld) [#/Vol] 309 10*3/uL 150-450 [facility] Protein Test strip Ql (U)Ord ered By: Carlos Cavazos on 11-24-2022 Protein Ql (U) Negative Negative [facility] Serum or plasma albumin oral urement (mass/volume)Ordered By: Carlos Cavazos on 11-24-2022 Albumin [Mass/Vol] 2.9 g/dL 3.2-5.0 [facility] Serum or plasma albumin/glob ulin mass ratioOrdered By: Carlos Cavazos on 11-24-2022 Albumin/Globulin [Mass ratio] 0.7 {ratio} 0.9-2.4 [facility] Serum or plasma calcium oral urement (mass/volume)Ordered By: Carlos Cavazos on 11-24-2022 Calcium [Mass/Vol] 8.7 mg/dL 8.5-10.1 [facility] Serum or plasma creatinine m easurement (mass/volume)Ordered By: Carlos Cavazos on 11-24-2022 Creatinine [Mass/Vol] 0.83 mg/dL 0.70-1.30 [facility] Comment on above: The validity of the calculated GFR & GFRAA in patients over 70 years has not been determined. Clinical correlation is essential. Serum or plasma urea nitroge n measurement (mass/volume)Ordered By: Carlos Cavazos on 11-24-2022 Urea nitrogen [Mass/Vol] 20 mg/dL 7-18 [facility] Squamous epithelial cells de tection in urine sediment by light microscopyOrdered By: Carlos Cavazos on 11-24-2022 Epithelial cells.squamous LM Ql (Urine sed) 0 SEEN /hpf 0-5 [facility] Thin prep Papanicolaou smear with manual screeningOrdered By: Carlos Cavazos on 11-24-2022 Thin prep Papanicolaou smear with manual screening 10 U/L 15-37 [facility] Thin prep Papanicolaou smear with manual screening 5 5-15 [facility] Urine blood detectionOrdered By: Carlos Cavazos on 11-24-2022 RBC Ql (U) Negative Negative [facility] RBC Ql (U) 0 SEEN /hpf 0-5 [facility] Urine clarityOrdered By: Ted Cavazos on 11-24-2022 Clarity (U) Clear Clear [facility] Urine color determinationOrd ered By: Carlos Cavazos on 11-24-2022 Color (U) Yellow Yellow [facility] Urine glucose detectionOrder ed By: Carlos Cavazos on 11-24-2022 Glucose Ql (U) Normal mg/dl Normal [facility] Urine leukocyte esterase det ection by dipstickOrdered By: Carlos Cavazos on 11-24-2022 Leukocyte esterase Test strip Ql (U) Negative Negative [facility] Urine pHOrdered By: Carlos flores on 11-24-2022 pH (U) 7.0 [pH] 5.0 - 8.0 [facility] Urine sediment bacteria coun t by microscopy (number/high power field)Ordered By: Carlos Cavazos on 11-24-2022 Bacteria LM.HPF (Urine sed) [#/Area] 0 /[HPF] None Seen [facility] Urine specific gravity measu rementOrdered By: Carlos Cavazos on 11-24-2022 Specific gravity (U) [Rel density] 1.010 1.002-1.030 [facility] Urobilinogen Auto test strip Ql (U)Ordered By: Carlos Cavazos on 11-24-2022 Urobilinogen Ql (U) Normal mg/dl Normal [facility] Laboratory - CoagulationOrde red By: Carlos Cavazos on 11-23-2022 INR Coag (Bld) [Relative time] 2.2 {INR} [facility] Comment on above: Critical Value > 4.0 Whole blood prothrombin time Ordered By: Carlos Cavazos on 11-23-2022 PT Coag (Bld) [Time] 24.5 s 11.7-14.9 [facility] Basophil percentageOrdered B y: Carlos Cavazos on 11-22-2022 Chloride [Moles/Vol] 105 mmol/L 98-107 [facility] Glucose [Mass/Vol] 91 mg/dL 74-106 [facility] Potassium [Moles/Vol] 4.1 mmol/L 3.5-5.1 [facility] Sodium [Moles/Vol] 138 mmol/L 136-145 [facility] WBC (Bld) [#/Vol] 12.0 10*3/uL 4.4-11.[address] [facility] Blood erythrocytes count (nu mber/volume)Ordered By: Carlos Cavazos on 11-22-2022 RBC (Bld) [#/Vol] 4.65 10*6/uL 4.6-6.[address] [facility] Blood hemoglobin measurement (mass/volume)Ordered By: Carlos Cavazos on 11-22-2022 Hemoglobin (Bld) [Mass/Vol] 12.4 g/dL 13.0-16.5 [facility] Blood platelet mean volumeOr dered By: Carlos Cavazos on 11-22-2022 Platelet mean volume (Bld) [Entitic vol] 10.3 fL 6.2-12.0 [facility] Determination of erythrocyte mean corpuscular volume (MCV)Ordered By: Carlos Cavazos on 11-22-2022 MCV (RBC) [Entitic vol] 86.0 fL 80-94 [facility] Hematocrit Auto (Bld) [Volum e fraction]Ordered By: Carlos Cavazos on 11-22-2022 Hematocrit (Bld) [Volume fraction] 40.0 % 40-54 [facility] Laboratory - Chemistry and C hemistry - challengeOrdered By: Carlos Caavzos on 11-22-2022 CO2 [Moles/Vol] 25.0 mmol/L 21.0-32.0 [facility] Urea nitrogen/Creatinine [Mass ratio] 23.6 mg/mg 10-20 [facility] Laboratory - Hematology and Cell countsOrdered By: Carlos Cavazos on 11-22-2022 Erythrocyte distribution width (RBC) [Entitic vol] 50.0 fL 35.1-43.9 [facility] Erythrocyte distribution width (RBC) [Ratio] 15.9 % 11.6-14.6 [facility] MCH (RBC) [Entitic mass] 26.7 pg 27.0-32.0 [facility] MCHC Auto (RBC) [Mass/Vol]Or dered By: Carlos Cavazos on 11-22-2022 MCHC (RBC) [Mass/Vol] 31.0 g/dL 32-36 [facility] No Panel InformationOrdered By: Carlos Cavazos on 11-22-2022 Estimated GFR (MDRD) Amer 115 mL/min >60 [facility] Comment on above: GFR Calc Estimated GFR (MDRD) Non-Af Amer 95 mL/min >60 [facility] Comment on above: Non- GFR Calc Platelets bldOrdered By: Pet er Kenny on 11-22-2022 Platelets (Bld) [#/Vol] 320 10*3/uL 150-450 [facility] Serum or plasma calcium oral urement (mass/volume)Ordered By: Carlos Cavazos on 11-22-2022 Calcium [Mass/Vol] 8.7 mg/dL 8.5-10.1 [facility] Serum or plasma creatinine m easurement (mass/volume)Ordered By: Carlos Cavazos on 11-22-2022 Creatinine [Mass/Vol] 0.85 mg/dL 0.70-1.30 [facility] Comment on above: The validity of the calculated GFR & GFRAA in patients over 70 years has not been determined. Clinical correlation is essential. Serum or plasma urea nitroge n measurement (mass/volume)Ordered By: Carlos Cavazos on 11-22-2022 Urea nitrogen [Mass/Vol] 20 mg/dL 7-18 [facility] Thin prep Papanicolaou smear with manual screeningOrdered By: Carlos Cavazos on 11-22-2022 Thin prep Papanicolaou smear with manual screening 8 5-15 [facility] Laboratory - CoagulationOrde red By: Carlos Cavazos on 11-09-2022 INR Coag (Bld) [Relative time] 2.1 {INR} [facility] Comment on above: Critical Value > 4.0 Whole blood prothrombin time Ordered By: Carlos Cavazos on 11-09-2022 PT Coag (Bld) [Time] 22.6 s 11.7-14.9 [facility] Laboratory - CoagulationOrde red By: Carlos Cavazos on 10-26-2022 INR Coag (Bld) [Relative time] 2.6 {INR} [facility] Comment on above: Critical Value > 4.0 Whole blood prothrombin time Ordered By: Carlos Cavazos on 10-26-2022 PT Coag (Bld) [Time] 28.5 s 11.7-14.9 [facility] Laboratory - CoagulationOrde red By: Carlos Cavazos on 10-12-2022 INR Coag (Bld) [Relative time] 2.4 {INR} [facility] Comment on above: Critical Value > 4.0 Whole blood prothrombin time Ordered By: Carlos Cavazos on 10-12-2022 PT Coag (Bld) [Time] 26.4 s 11.7-14.9 [facility] Laboratory - CoagulationOrde red By: Carlos Cavazos on 10-05-2022 INR Coag (Bld) [Relative time] 2.6 {INR} [facility] Comment on above: Critical Value > 4.0 Whole blood prothrombin time Ordered By: Carlos Cavazos on 10-05-2022 PT Coag (Bld) [Time] 28.0 s 11.7-14.9 [facility] Laboratory - CoagulationOrde red By: Carlos Cavazos on 09-28-2022 INR Coag (Bld) [Relative time] 2.7 {INR} [facility] Comment on above: Critical Value > 4.0 Whole blood prothrombin time Ordered By: Carlos Cavazos on 09-28-2022 PT Coag (Bld) [Time] 28.9 s 11.7-14.9 [facility] Laboratory - CoagulationOrde red By: Carlos Cavazos on 09-14-2022 INR Coag (Bld) [Relative time] 2.5 {INR} [facility] Comment on above: Critical Value > 4.0 Whole blood prothrombin time Ordered By: Carlos Cavazos on 09-14-2022 PT Coag (Bld) [Time] 27.4 s 11.7-14.9 [facility] Laboratory - CoagulationOrde red By: Carlos Cavazos on 08-31-2022 INR Coag (Bld) [Relative time] 2.3 {INR} [facility] Comment on above: Critical Value > 4.0 Whole blood prothrombin time Ordered By: Carlos Cavazos on 08-31-2022 PT Coag (Bld) [Time] 25.4 s 11.7-14.9 [facility] Basophil percentageOrdered B y: Carlos Cavazos on 08-23-2022 Chloride [Moles/Vol] 108 mmol/L 98-107 [facility] Glucose [Mass/Vol] 86 mg/dL 74-106 [facility] Potassium [Moles/Vol] 4.3 mmol/L 3.5-5.1 [facility] Sodium [Moles/Vol] 136 mmol/L 136-145 [facility] WBC (Bld) [#/Vol] 10.0 10*3/uL 4.4-11.[address] [facility] Blood erythrocytes count (nu mber/volume)Ordered By: Carlos Cavazos on 08-23-2022 RBC (Bld) [#/Vol] 4.77 10*6/uL 4.6-6.[address] [facility] Blood hemoglobin measurement (mass/volume)Ordered By: Carlos Cavazos on 08-23-2022 Hemoglobin (Bld) [Mass/Vol] 12.5 g/dL 13.0-16.5 [facility] Blood platelet mean volumeOr dered By: Carlos Cavazos on 08-23-2022 Platelet mean volume (Bld) [Entitic vol] 11.0 fL 6.2-12.0 [facility] Determination of erythrocyte mean corpuscular volume (MCV)Ordered By: Carlos Cavazos on 08-23-2022 MCV (RBC) [Entitic vol] 84.3 fL 80-94 [facility] Hematocrit Auto (Bld) [Volum e fraction]Ordered By: Carlos Cavazos on 08-23-2022 Hematocrit (Bld) [Volume fraction] 40.2 % 40-54 [facility] Laboratory - Chemistry and C hemistry - challengeOrdered By: Carlos Cavazos on 08-23-2022 CO2 [Moles/Vol] 24.0 mmol/L 21.0-32.0 [facility] Urea nitrogen/Creatinine [Mass ratio] 22.8 mg/mg 10-20 [facility] Laboratory - Hematology and Cell countsOrdered By: Carlos Cavazos on 08-23-2022 Erythrocyte distribution width (RBC) [Entitic vol] 49.3 fL 35.1-43.9 [facility] Erythrocyte distribution width (RBC) [Ratio] 16.0 % 11.6-14.6 [facility] MCH (RBC) [Entitic mass] 26.2 pg 27.0-32.0 [facility] MCHC Auto (RBC) [Mass/Vol]Or dered By: Carlos Cavazos on 08-23-2022 MCHC (RBC) [Mass/Vol] 31.1 g/dL 32-36 [facility] No Panel InformationOrdered By: Carlos Cavazos on 08-23-2022 Estimated GFR (MDRD) Amer 134 mL/min >60 [facility] Comment on above: GFR Calc Estimated GFR (MDRD) Non-Af Amer 110 mL/min >60 [facility] Comment on above: Non- GFR Calc Platelets bldOrdered By: Ted Cavazos on 08-23-2022 Platelets (Bld) [#/Vol] 268 10*3/uL 150-450 [facility] Serum or plasma calcium oral urement (mass/volume)Ordered By: Carlos Cavazos on 08-23-2022 Calcium [Mass/Vol] 9.1 mg/dL 8.5-10.1 [facility] Serum or plasma creatinine m easurement (mass/volume)Ordered By: Carlos Cavazos on 08-23-2022 Creatinine [Mass/Vol] 0.74 mg/dL 0.70-1.30 [facility] Comment on above: The validity of the calculated GFR & GFRAA in patients over 70 years has not been determined. Clinical correlation is essential. Serum or plasma urea nitroge n measurement (mass/volume)Ordered By: Carlos Cavazos on 08-23-2022 Urea nitrogen [Mass/Vol] 17 mg/dL 7-18 [facility] Thin prep Papanicolaou smear with manual screeningOrdered By: Carlos Cavazos on 08-23-2022 Thin prep Papanicolaou smear with manual screening 4 5-15 [facility] Laboratory - CoagulationOrde red By: Carlos Cavazos on 08-17-2022 INR Coag (Bld) [Relative time] 2.8 {INR} [facility] Comment on above: Critical Value > 4.0 Whole blood prothrombin time Ordered By: Carlos Cavazos on 08-17-2022 PT Coag (Bld) [Time] 29.6 s 11.7-14.9 [facility] Laboratory - CoagulationOrde red By: Carlos Cavazos on 08-14-2022 INR Coag (Bld) [Relative time] 3.9 {INR} [facility] Comment on above: Critical Value > 4.0 Whole blood prothrombin time Ordered By: Carlos Cavazos on 08-14-2022 PT Coag (Bld) [Time] 40.6 s 11.7-14.9 [facility] - CoagulationOrde red By: Carlos Cvaazos on 07-31-2022 INR Coag (Bld) [Relative time] 2.5 {INR} [facility] Comment on above: Critical Value > 4.0 Whole blood prothrombin time Ordered By: Carlos Cavazos on 07-31-2022 PT Coag (Bld) [Time] 26.8 s 11.7-14.9 [facility] INR in Blood by Coagulation assayOrdered By: Carlos Cavazos on 07-24-2022 INR Coag (Bld) [Relative time] 2.3 {INR} [facility] Laboratory - CoagulationOrde red By: Carlos Cavazos on 07-24-2022 PT Coag (PPP) [Time] 24.7 s 11.7-14.9 [facility] Laboratory - CoagulationOrde red By: Carlos Cavazos on 07-20-2022 INR Coag (Bld) [Relative time] 1.9 {INR} [facility] Comment on above: Critical Value > 4.0 Whole blood prothrombin time Ordered By: Carlos Cavazos on 07-20-2022 PT Coag (Bld) [Time] 20.6 s 11.7-14.9 [facility] Laboratory - CoagulationOrde red By: Carlos Cavazos on 07-17-2022 INR Coag (Bld) [Relative time] 1.3 {INR} [facility] Comment on above: Critical Value > 4.0 Whole blood prothrombin time Ordered By: Carlos Cavazos on 07-17-2022 PT Coag (Bld) [Time] 15.9 s 11.7-14.[address] [facility] Basophil percentageOrdered B y: Carlos Cavazos on 07-11-2022 Chloride [Moles/Vol] 105 mmol/L 98-107 [facility] Glucose [Mass/Vol] 97 mg/dL 74-106 [facility] Potassium [Moles/Vol] 3.9 mmol/L 3.5-5.1 [facility] Sodium [Moles/Vol] 140 mmol/L 136-145 [facility] WBC (Bld) [#/Vol] 9.4 10*3/uL 4.4-11.0 [facility] Blood erythrocytes count (nu mber/volume)Ordered By: Carlos Cavazos on 07-11-2022 RBC (Bld) [#/Vol] 4.66 10*6/uL 4.6-6.[address] [facility] Blood hemoglobin measurement (mass/volume)Ordered By: Carlos Cavazos on 07-11-2022 Hemoglobin (Bld) [Mass/Vol] 12.0 g/dL 13.0-16.5 [facility] Blood platelet mean volumeOr dered By: Carlos Cavazos on 07-11-2022 Platelet mean volume (Bld) [Entitic vol] 10.4 fL 6.2-12.0 [facility] Determination of erythrocyte mean corpuscular volume (MCV)Ordered By: Carlos Cavazos on 07-11-2022 MCV (RBC) [Entitic vol] 83.7 fL 80-94 [facility] Hematocrit Auto (Bld) [Volum e fraction]Ordered By: Carlos Cavazos on 07-11-2022 Hematocrit (Bld) [Volume fraction] 39.0 % 40-54 [facility] Laboratory - Chemistry and C hemistry - challengeOrdered By: Carlos Cavazos on 07-11-2022 CO2 [Moles/Vol] 28.0 mmol/L 21.0-32.0 [facility] Urea nitrogen/Creatinine [Mass ratio] 23.0 mg/mg 10-20 [facility] Laboratory - Hematology and Cell countsOrdered By: Calros Cavazos on 07-11-2022 Erythrocyte distribution width (RBC) [Entitic vol] 51.0 fL 35.1-43.9 [facility] Erythrocyte distribution width (RBC) [Ratio] 16.8 % 11.6-14.6 [facility] MCH (RBC) [Entitic mass] 25.8 pg 27.0-32.0 [facility] MCHC Auto (RBC) [Mass/Vol]Or dered By: Carlos Cavazos on 07-11-2022 MCHC (RBC) [Mass/Vol] 30.8 g/dL 32-36 [facility] No Panel InformationOrdered By: Carlos Cavazos on 07-11-2022 Estimated GFR (MDRD) Amer 126 mL/min >60 [facility] Comment on above: GFR Calc Estimated GFR (MDRD) Non-Af Amer 104 mL/min >60 [facility] Comment on above: Non- GFR Calc Platelets bldOrdered By: Ted Cavazos on 07-11-2022 Platelets (Bld) [#/Vol] 291 10*3/uL 150-450 [facility] Serum or plasma calcium oral urement (mass/volume)Ordered By: Carlos Cavazos on 07-11-2022 Calcium [Mass/Vol] 9.2 mg/dL 8.5-10.1 [facility] Serum or plasma creatinine m easurement (mass/volume)Ordered By: Carlos Cavazos on 07-11-2022 Creatinine [Mass/Vol] 0.78 mg/dL 0.70-1.30 [facility] Comment on above: The validity of the calculated GFR & GFRAA in patients over 70 years has not been determined. Clinical correlation is essential. Serum or plasma urea nitroge n measurement (mass/volume)Ordered By: Carlos Cavazos on 07-11-2022 Urea nitrogen [Mass/Vol] 18 mg/dL 7-18 [facility] Thin prep Papanicolaou smear with manual screeningOrdered By: Carlos Cavazos on 07-11-2022 Thin prep Papanicolaou smear with manual screening 7 5-15 [facility] Laboratory - CoagulationOrde red By: Carlos Cavazos on 07-10-2022 INR Coag (Bld) [Relative time] 1.8 {INR} [facility] Comment on above: Critical Value > 4.0 Whole blood prothrombin time Ordered By: Carlos Cavazos on 07-10-2022 PT Coag (Bld) [Time] 21.0 s 11.7-14.9 [facility] Laboratory - CoagulationOrde red By: Carlos Cavazos on 07-03-2022 INR Coag (Bld) [Relative time] 1.9 {INR} [facility] Comment on above: Critical Value > 4.0 Whole blood prothrombin time Ordered By: Carlos Cavazos on 07-03-2022 PT Coag (Bld) [Time] 22.7 s 11.7-14.9 [facility] INR in Blood by Coagulation assayOrdered By: Carlos Cavazos on 06-27-2022 INR Coag (Bld) [Relative time] 2.9 {INR} [facility] - CoagulationOrde red By: Carlos Cavazos on 06-27-2022 PT Coag (PPP) [Time] 29.9 s 11.7-14.9 [facility] Laboratory - CoagulationOrde red By: Carlos Cavazos on 06-13-2022 INR Coag (Bld) [Relative time] 2.1 {INR} [facility] Comment on above: Critical Value > 4.0 Whole blood prothrombin time Ordered By: Carlos Cavazos on 06-13-2022 PT Coag (Bld) [Time] 24.4 s 11.7-14.9 [facility] Laboratory - CoagulationOrde red By: Carlos Cavazos on 06-06-2022 INR Coag (Bld) [Relative time] 1.5 {INR} [facility] Comment on above: Critical Value > 4.0 Whole blood prothrombin time Ordered By: Carlos Cavazos on 06-06-2022 PT Coag (Bld) [Time] 18.4 s 11.7-14.9 [facility] Basophil percentageOrdered B y: Carlos Cavazos on 05-30-2022 Chloride [Moles/Vol] 105 mmol/L 98-107 [facility] Glucose [Mass/Vol] 95 mg/dL 74-106 [facility] Potassium [Moles/Vol] 3.9 mmol/L 3.5-5.1 [facility] Sodium [Moles/Vol] 140 mmol/L 136-145 [facility] WBC (Bld) [#/Vol] 7.6 10*3/uL 4.4-11.0 [facility] Blood erythrocytes count (nu mber/volume)Ordered By: Carlos Cavazos on 05-30-2022 RBC (Bld) [#/Vol] 4.79 10*6/uL 4.6-6.[address] [facility] Blood hemoglobin measurement (mass/volume)Ordered By: Carlos Cavazos on 05-30-2022 Hemoglobin (Bld) [Mass/Vol] 12.1 g/dL 13.0-16.5 [facility] Blood platelet mean volumeOr dered By: Carlos Cavazos on 05-30-2022 Platelet mean volume (Bld) [Entitic vol] 10.4 fL 6.2-12.0 [facility] Determination of erythrocyte mean corpuscular volume (MCV)Ordered By: Carlos Cavazos on 05-30-2022 MCV (RBC) [Entitic vol] 82.5 fL 80-94 [facility] Hematocrit Auto (Bld) [Volum e fraction]Ordered By: Carlos Cavazos on 05-30-2022 Hematocrit (Bld) [Volume fraction] 39.5 % 40-54 [facility] INR in Blood by Coagulation assayOrdered By: Carlos Cavazos on 05-30-2022 INR Coag (Bld) [Relative time] 1.9 {INR} [facility] Laboratory - Chemistry and C hemistry - challengeOrdered By: Carlos Cavazos on 05-30-2022 CO2 [Moles/Vol] 27.0 mmol/L 21.0-32.0 [facility] Urea nitrogen/Creatinine [Mass ratio] 21.4 mg/mg 10-20 [facility] Laboratory - CoagulationOrde red By: Carlos Cavazos on 05-30-2022 PT Coag (PPP) [Time] 21.6 s 11.7-14.9 [facility] Laboratory - Hematology and Cell countsOrdered By: Carlos Cavazos on 05-30-2022 Erythrocyte distribution width (RBC) [Entitic vol] 48.8 fL 35.1-43.9 [facility] Erythrocyte distribution width (RBC) [Ratio] 16.2 % 11.6-14.6 [facility] MCH (RBC) [Entitic mass] 25.3 pg 27.0-32.0 [facility] Auto (RBC) [Mass/Vol]Or dered By: Carlos Cavazos on 05-30-2022 MCHC (RBC) [Mass/Vol] 30.6 g/dL 32-36 [facility] No Panel InformationOrdered By: Carlos Cavazos on 05-30-2022 Estimated GFR (MDRD) Amer 133 mL/min >60 [facility] Comment on above: GFR Calc Estimated GFR (MDRD) Non-Af Amer 110 mL/min >60 [facility] Comment on above: Non- GFR Calc Platelets bldOrdered By: Ted Cavazos on 05-30-2022 Platelets (Bld) [#/Vol] 308 10*3/uL 150-450 [facility] Serum or plasma calcium oral urement (mass/volume)Ordered By: Carlos Cavazos on 05-30-2022 Calcium [Mass/Vol] 9.1 mg/dL 8.5-10.1 [facility] Serum or plasma creatinine m easurement (mass/volume)Ordered By: Carlos Cavazos on 05-30-2022 Creatinine [Mass/Vol] 0.75 mg/dL 0.70-1.30 [facility] Comment on above: The validity of the calculated GFR & GFRAA in patients over 70 years has not been determined. Clinical correlation is essential. Serum or plasma urea nitroge n measurement (mass/volume)Ordered By: Carlos Cavazos on 05-30-2022 Urea nitrogen [Mass/Vol] 16 mg/dL 7-18 [facility] Thin prep Papanicolaou smear with manual screeningOrdered By: Carlos Cavazos on 05-30-2022 Thin prep Papanicolaou smear with manual screening 8 5-15 [facility] Laboratory - CoagulationOrde red By: Carlos Cavazos on 05-16-2022 INR Coag (Bld) [Relative time] 2.6 {INR} [facility] Comment on above: Critical Value > 4.0 Whole blood prothrombin time Ordered By: Carlos Cavazos on 05-16-2022 PT Coag (Bld) [Time] 29.9 s 11.7-14.9 [facility] Laboratory - CoagulationOrde red By: Carlos Cavazos on 05-02-2022 INR Coag (Bld) [Relative time] 2.0 {INR} [facility] Comment on above: Critical Value > 4.0 Whole blood prothrombin time Ordered By: Carlos Cavazos on 05-02-2022 PT Coag (Bld) [Time] 23.2 s 11.7-14.9 [facility] Laboratory - CoagulationOrde red By: Carlos Cavazos on 04-27-2022 INR Coag (Bld) [Relative time] 2.7 {INR} [facility] Comment on above: Critical Value > 4.0 Whole blood prothrombin time Ordered By: Carlos Cavazos on 04-27-2022 PT Coag (Bld) [Time] 31.1 s 11.7-14.9 [facility] Laboratory - CoagulationOrde red By: Carlos Cavazos on 04-26-2022 INR Coag (Bld) [Relative time] 2.8 {INR} [facility] Comment on above: Critical Value > 4.0 Whole blood prothrombin time Ordered By: Carlos Cavazos on 04-26-2022 PT Coag (Bld) [Time] 32.6 s 11.7-14.9 [facility] Laboratory - CoagulationOrde red By: Carlos Cavazos on 04-11-2022 INR Coag (Bld) [Relative time] 2.9 {INR} [facility] Comment on above: Critical Value > 4.0 Whole blood prothrombin time Ordered By: Carlos Cavazos on 04-11-2022 PT Coag (Bld) [Time] 32.8 s 11.7-14.9 [facility] Laboratory - CoagulationOrde red By: Carlos Cavazos on 03-28-2022 INR Coag (Bld) [Relative time] 2.1 {INR} [facility] Comment on above: Critical Value > 4.0 Whole blood prothrombin time Ordered By: Carlos Cavazos on 03-28-2022 PT Coag (Bld) [Time] 24.8 s 11.7-14.9 [facility] Laboratory - CoagulationOrde red By: Carlos Cavazos on 03-23-2022 INR Coag (Bld) [Relative time] 1.7 {INR} [facility] Comment on above: Critical Value > 4.0 Whole blood prothrombin time Ordered By: Carlos Cavazos on 03-23-2022 PT Coag (Bld) [Time] 20.9 s 11.7-14.9 [facility] Laboratory - CoagulationOrde red By: Carlos Cavazos on 03-16-2022 INR Coag (Bld) [Relative time] 1.7 {INR} [facility] Comment on above: Critical Value > 4.0 Whole blood prothrombin time Ordered By: Carlos Cavazos on 03-16-2022 PT Coag (Bld) [Time] 19.9 s 11.7-14.9 [facility] Laboratory - CoagulationOrde red By: Carlos Cavazos on 03-09-2022 INR Coag (Bld) [Relative time] 1.8 {INR} [facility] Comment on above: Critical Value > 4.0 Whole blood prothrombin time Ordered By: Carlos Cavazos on 03-09-2022 PT Coag (Bld) [Time] 21.9 s 11.7-14.9 [facility] Laboratory - CoagulationOrde red By: Carlos Cavazos on 03-06-2022 INR Coag (Bld) [Relative time] 1.7 {INR} [facility] Comment on above: Critical Value > 4.0 Whole blood prothrombin time Ordered By: Carlos Cavazos on 03-06-2022 PT Coag (Bld) [Time] 20.0 s 11.7-14.9 [facility] CBC with Auto Differentialon 03-02-2022 [...] Test Performed by [facility], [address] [place] [address] HEAD WO CONTRASTon 2021 Patient Name: ANDREW SIFUENTES Computed Tomography ACCESSION EXAM DATE/TIME PROCEDURE ORDERING PROVIDER [id number] 03/02/2022 13:[address] Head or Brain w/o [id number] -LANETTE MUNGUIA CPT code 66764 Reason For Exam (CT Head or Brain [...] tubes (parent active on the left for [employer] shunting and disconnected on the right). 2. No definite evidence of acute infarction (MRI more sensitive), mass lesion, nor hemorrhage. Report Dictated on --- Final --- Dictated: 03/02/2022 1:35 pm Dictating Physician: MD GUTIERREZ WILLIAM Signed Date and Time: 03/02/2022 1:39 pm Signed by: MD GUTIERREZ WILLIAM Transcribed Date and Time: 03/02/2022 1:35 [facility] Anant Gutierrez MD - 03/02/2022 [id number] ACCESSION EXAM DATE/TIME PROCEDURE ORDERING PROVIDER [id number] 03/02/2022 13:[address] Head or Brain w/o [id number] -LANETTE MUNGUIA Contrast CPT code 81768 Reason For Exam (CT Head or Brain [...] tubes (parent active on the left for [employer]TER HEL[employer] shunting and disconnected on the right). 2. [...] Tomography ACCESSION EXAM DATE/TIME PROCEDURE ORDERING PROVIDER [id number] 03/02/2022 13:[address] Head or Brain w/o [id number] -LANETTE MUNGUIA Contrast CPT code 91410 Reason For Exam (CT Head or Brain [...] tubes (parent active on the left for TR[employer]TER [employer]PER shunting and disconnected on the right). 2. No definite evidence of acute infarction (MRI more sensitive), mass lesion, nor hemorrhage. Report Dictated on Final Dictated: 03/02/2022 1:35 pm Dictating Physician: MD GUTIERREZ WILLIAM Signed Date and Time: 03/02/2022 1:39 pm Signed by: MD GUTIERREZ WILLIAM Transcribed Date and Time: 03/02/2022 1:35 Normal [facility] Comp Metabolic Panelon 03-02 Calcium [Mass/Vol] 9.1 mg/dL Normal 8.4-10.4 [facility] Comment on above: Performed By: #### H EMDF PT, CMP3 ####[id number] [place], [place] ALP [Catalytic activity/Vol] 128 U/L High 38-126 [facility] Comment on above: Performed By: #### H BIMALF PT, CMP3 ####[id number] [place], [place] ALT [Catalytic activity/Vol] 12 U/L Normal 0-49 [facility] Comment on above: Result Comment: The ALT test is performed by an updated assay method. Please note that the reference intervals have been changed and are now sex specific. Performed By: #### H EMDF PT, CMP3 ####[id number] [place], [place] Anion gap [Moles/Vol] 7 mmol/L Normal 3-13 [facility] Comment on above: Performed By: #### H EMDF, PT, CMP3 ####[id number] [place], [place] AST [Catalytic activity/Vol] 24 U/L Normal 15-46 [facility] Comment on above: Performed By: #### H BIMALF PT, CMP3 ####[facility] [employer] [id number] [employer] [place], [place] Bilirubin [Mass/Vol] 0.4 mg/dL Normal 0.2-1.3 [facility] Comment on above: Performed By: #### H EMDF PT, CMP3 ####[facility] [employer] [id number] [place] CO2 [Moles/Vol] 27 mmol/L Normal 22-30 [facility] Comment on above: Performed By: #### H BIMALF PT, CMP3 ####[facility] [employer] [id number] [place] Glucose [Mass/Vol] 109 mg/dL High 70-100 [facility] Comment on above: Performed By: #### H BIMALF PT, CMP3 ####[facility] [employer] [id number] [place] Protein [Mass/Vol] 8.1 g/dL Normal 6.3-8.2 [facility] Comment on above: Performed By: #### H TIERA PT, CMP3 ####[facility] [employer] [id number] [employer] [place], [place] Urea nitrogen [Mass/Vol] 22 mg/dL High 7-17 [facility] Comment on above: Performed By: #### H BIMALF PT, CMP3 ####[facility] [employer] [id number] [employer] [place], [place] Creatinine [Mass/Vol] 0.63 mg/dL Normal 0.52-1.25 [facility] Comment on above: Performed By: #### H EMDF PT, CMP3 ####[facility] [employer] [id number] [employer] [place], [place] eGFR OTHER > 90.0 Normal >60 [facility] Comment on above: Result Comment: KDIG [...] By: #### H CHRISTEL MOTT CMP3 ####[address] GFR/1.73 sq M.predicted among blacks MDRD (S/P/Bld) [Vol rate/Area] mL/min/{1.73_m2} Normal >60 [facility] Comment on above: Performed By: #### H CHRISTEL MOTT CMP3 ####[address] Albumin [Mass/Vol] 4.1 g/dL Normal 3.5-5.0 [facility] Comment on above: Performed By: #### H CHRISTEL MOTT CMP3 ####[address] Chloride [Moles/Vol] 106 mmol/L Normal 98-107 [facility] Comment on above: Performed By: #### H CHRISTEL MOTT CMP3 ####[address] Potassium [Moles/Vol] 3.7 mmol/L Normal 3.5-5.1 [facility] Comment on above: Performed By: #### H CHRISTEL MOTT CMP3 ####[address] Sodium [Moles/Vol] 140 mmol/L Normal 135-145 [facility] Comment on above: Performed By: #### H CHRISTEL MOTT CMP3 ####[address] [id number] [facility] 03-02-2022 Albumin [Mass/Vol] 4.1 g/dL 3.5 - [...] P INF mL/min [facility] EGFR IF NonAfrican Somali mL/min 60 - PINF mL/min [facility] Comment [...] Test Performed by [facility], [address] [place] [id number] [facility] ED Provider Noteon 2 ED Provider Note [facility] DEPT EMERGENCY DEPARTMENT ENCOUNTER Pt Name: Andrew Sifuentes Birthdate 1950 Date of evaluation: 03/02/2022 Provider: Lanette Munguia DO CHIEF COMPLAINT Chief Complaint Patient presents with Fall Patient had unwitnessed fall at [facility] landed on butt. Is on thinners, denies LOC, denies head injury has no complaints at this time HISTORY OF PRESENT ILLNESS (Location/Symptom, Timing/Onset, Context/Setting, Quality, Duration, Modifying Factors, Severity) Note limiting factors. I wore a N-95 mask for the entirety of this encounter. Andrew Sifuentes is a 71 y.o. male medical history of hydrocephalus status post TRIM SETTER HELPER shunt, history of DVT on Coumadin who presents to the emergency department from [facility] for evaluation following mechanical fall. 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 Normal [facility] Hemogram w/ Autodiffon 03-02 Abs Baso Cnt 0.2 10*3/uL Normal 0.0-0.2 [facility] Comment on above: Performed By: #### H TIERA PT, CMP3 ####[facility] [place] [address] Abs Neutrophile Cnt 10.7 10*3/uL High 1.8-7.0 [facility] Comment on above: Performed By: #### H TIERA PT, CMP3 ####[facility] [place] [address] Basophils/100 WBC (Bld) 1.1 % Normal 0.0-2.0 [facility] Comment on above: Performed By: #### H TIERA PT, CMP3 ####[facility] [place] [address] Eosinophils (Bld) [#/Vol] 0.1 10*3/uL Normal 0.0-0.5 [facility] Comment on above: Performed By: #### H BIMALF PT, CMP3 ####[id number] [place] [address] Eosinophils/100 WBC (Bld) 0.5 % Low 1.0-6.0 [facility] Comment on above: Performed By: #### H EMDF PT, CMP3 ####[address] [address] Granulocytes/100 WBC (Bld) 73.9 % Normal 40.0-80.0 [facility] Comment on above: Performed By: #### H EMDF PT, CMP3 ####[address] [address] Lymphocytes (Bld) [#/Vol] 3.0 10*3/uL Normal 1.0-4.3 [facility] Comment on above: Performed By: #### H EMDHeydi PT, CMP3 ####[address] [address] Lymphocytes/100 WBC (Bld) 20.6 % Normal 20.0-40.0 [facility] Comment on above: Performed By: #### H EMDHeydi PT, CMP3 ####[address] [address] Monocytes (Bld) [#/Vol] 0.6 10*3/uL Normal 0.0-0.8 [facility] Comment on above: Performed By: #### H EMDF PT, CMP3 ####[address] [address] Monocytes/100 WBC (Bld) 3.9 % Normal 2.0-10.0 [facility] Comment on above: Performed By: #### H EMDHeydi PT, CMP3 ####[address] [address] Platelet mean volume (Bld) [Entitic vol] 8.5 fL Normal 7.4-12.4 [facility] Comment on above: Result Comment: MPV is a calculated measurement using platelet volume ratio. Performed By: #### H EMDF PT, CMP3 ####[address] [place], [place] Platelets (Bld) [#/Vol] 411 10*3/uL Normal 140-440 [facility] Comment on above: Performed By: #### H EMDF, PT, CMP3 ####[address] Erythrocyte distribution width (RBC) [Ratio] 17.0 % High 11.5-14.5 [facility] Comment on above: Performed By: #### H EMDF, PT, CMP3 ####[address] Hematocrit (Bld) [Volume fraction] 37.4 % Low 40.0-52.0 [facility] Comment on above: Performed By: #### H EMDF, PT, CMP3 ####[address] Hemoglobin (Bld) [Mass/Vol] 12.1 g/dL Low 13.0-18.0 [facility] Comment on above: Performed By: #### H EMDF, PT, CMP3 ####[address] MCH (RBC) [Entitic mass] 26.2 pg Normal 26.0-34.0 [facility] Comment on above: Performed By: #### H EMDF, PT, CMP3 ####[address] MCHC 32.3 % Normal 32.0-36.0 [facility] Comment on above: Performed By: #### H EMDF, PT, CMP3 ####[address] MCV (RBC) [Entitic vol] 81.1 fL Normal 80.0-98.0 [facility] Comment on above: Performed By: #### H EMDF, PT, CMP3 ####[address] RBC (Bld) [#/Vol] 4.61 10*6/uL Normal 4.40-5.90 [facility] Comment on above: Performed By: #### H BIMALF PT, CMP3 ####[address] WBC (Bld) [#/Vol] 14.5 10*3/uL High 3.6-10.7 [facility] Comment on above: Performed By: #### H EMDF PT, CMP3 ####[address] Prothrombin Timeon INR 1.9 High 0.9-1.1 [facility] Comment on above: Result Comment: Harry [...] Performed By: #### H TIERA PT, CMP3 ####[address] PT Coag (PPP) [Time] 18.9 s High 9.0-12.0 [facility] Comment on above: Result Comment: . Performed By: #### H BIMALF PT, CMP3 ####[address] Protime-INRon 03-02-2022 INR Coag (Bld) [Relative time] 1.9 {INR} High [facility] Comment on above: Recommended Anticoag [...] Interpretation and review of laboratory results Abnormal [facility] PT Coag (PPP) [Time] 18.9 s High 9.0 - 12.0 s [facility] Comment on above: . Test Performed by [facility], [address] [place] [address] [facility] Laboratory - CoagulationOrde red By: Carlos Cavazos on 02-20-2022 INR Coag (Bld) [Relative time] 2.6 {INR} [facility] Comment on above: Critical Value > 4.0 Whole blood prothrombin time Ordered By: Carlos Cavazos on 02-20-2022 PT Coag (Bld) [Time] 30.1 s 11.7-14.9 [facility] Laboratory - CoagulationOrde red By: Carlos Cavazos on 02-13-2022 INR Coag (Bld) [Relative time] 2.3 {INR} [facility] Comment on above: Critical Value > 4.0 Whole blood prothrombin time Ordered By: Carlos Cavazos on 02-13-2022 PT Coag (Bld) [Time] 26.7 s 11.7-14.9 [facility] Laboratory - CoagulationOrde red By: Carlos Cavazos on 02-06-2022 INR Coag (Bld) [Relative time] 2.3 {INR} [facility] Comment on above: Critical Value > 4.0 Whole blood prothrombin time Ordered By: Carlos Cavazos on 02-06-2022 PT Coag (Bld) [Time] 26.6 s 11.7-14.9 [facility] Laboratory - Coagulationon 0 01-30-2022 INR Coag (Bld) [Relative time] 1.7 {INR} [facility] Work Phone: Comment on above: Critical Value > 4.0 Whole blood prothrombin time on 01-30-2022 PT Coag (Bld) [Time] 20.1 s 11.7-14.9 [facility] Work Phone: Laboratory - Coagulationon 0 01-26-2022 INR Coag (Bld) [Relative time] 1.8 {INR} [facility] Work Phone: Comment on above: Critical Value > 4.0 Whole blood prothrombin time on 01-26-2022 PT Coag (Bld) [Time] 21.8 s 11.7-14.9 [facility] Work Phone: Laboratory - Coagulationon 0 01-19-2022 INR Coag (Bld) [Relative time] 2.2 {INR} [facility] Work Phone: Comment on above: Critical Value > 4.0 Whole blood prothrombin time on 01-19-2022 PT Coag (Bld) [Time] 25.7 s 11.7-14.9 [facility] Work Phone: INR in Blood by Coagulation assayon 01-10-2022 INR Coag (Bld) [Relative time] 1.8 {INR} [facility] Work Phone: Laboratory - Coagulationon 0 01-10-2022 PT Coag (PPP) [Time] 20.9 s 11.7-14.9 [facility] Work Phone: Basophil percentageon 2021 Chloride [Moles/Vol] 107 mmol/L 98-107 [facility] Work Phone: Glucose [Mass/Vol] 82 mg/dL 74-106 [facility] Work Phone: Potassium [Moles/Vol] 3.4 mmol/L 3.5-5.1 [facility] Work Phone: Sodium [Moles/Vol] 143 mmol/L 136-145 [facility] Work Phone: WBC (Bld) [#/Vol] 10.4 10*3/uL 4.4-11.[address] [facility] Work Phone: Blood erythrocytes count (nu mber/volume)on 01-05-2022 RBC (Bld) [#/Vol] 4.27 10*6/uL 4.6-6.[address] [facility] Work Phone: Blood hemoglobin measurement (mass/volume)on 01-05-2022 Hemoglobin (Bld) [Mass/Vol] 11.2 g/dL 13.0-16.5 [facility] Work Phone: Blood platelet mean volumeon 01-05-2022 Platelet mean volume (Bld) [Entitic vol] 10.3 fL 6.2-12.0 [facility] Work Phone: Determination of erythrocyte mean corpuscular volume (MCV)on 01-05-2022 MCV (RBC) [Entitic vol] 84.8 fL 80-94 [facility] Work Phone: Hematocrit Auto (Bld) [Volum e fraction]on 01-05-2022 Hematocrit (Bld) [Volume fraction] 36.2 % 40-54 [facility] Work Phone: Laboratory - Chemistry and C hemistry - challengeon 01-05-2022 CO2 [Moles/Vol] 28.0 mmol/L 21.0-32.0 [facility] Work Phone: Urea nitrogen/Creatinine [Mass ratio] 20.0 mg/mg 10-20 [facility] Work Phone: Laboratory - Hematology and Cell countson 01-05-2022 Erythrocyte distribution width (RBC) [Entitic vol] 51.8 fL 35.1-43.9 [facility] Work Phone: Erythrocyte distribution width (RBC) [Ratio] 16.8 % 11.6-14.6 [facility] Work Phone: MCH (RBC) [Entitic mass] 26.2 pg 27.0-32.0 [facility] Work Phone: MCHC Auto (RBC) [Mass/Vol]on 01-05-2022 MCHC (RBC) [Mass/Vol] 30.9 g/dL 32-36 [facility] Work Phone: No Panel Informationon 01-05 Estimated GFR (MDRD) Amer 133 mL/min >60 [facility] Work Phone: Comment on above: GFR Calc Estimated GFR (MDRD) Non-Af Amer 110 mL/min >60 [facility] Work Phone: Comment on above: Non- GFR Calc Platelets bldon 01-05-2022 Platelets (Bld) [#/Vol] 373 10*3/uL 150-450 [facility] Work Phone: Serum or plasma calcium oral urement (mass/volume)on 01-05-2022 Calcium [Mass/Vol] 8.8 mg/dL 8.5-10.1 [facility] Work Phone: Serum or plasma creatinine m easurement (mass/volume)on 01-05-2022 Creatinine [Mass/Vol] 0.75 mg/dL 0.70-1.30 [facility] Work Phone: Comment on above: The validity of the calculated GFR & GFRAA in patients over 70 years has not been determined. Clinical correlation is essential. Serum or plasma urea nitroge n measurement (mass/volume)on 01-05-2022 Urea nitrogen [Mass/Vol] 15 mg/dL 7-18 [facility] Work Phone: Thin prep Papanicolaou smear with manual screeningon 01-05-2022 Thin prep Papanicolaou smear with manual screening 8 5-15 [facility] Work Phone: Laboratory - Coagulationon 0 12-30-2021 INR Coag (Bld) [Relative time] 2.0 {INR} [facility] Work Phone: Comment on above: Critical Value > 4.0 Whole blood prothrombin time on 12-30-2021 PT Coag (Bld) [Time] 23.7 s 11.7-14.9 [facility] Work Phone: Basophil percentageon 2021 Chloride [Moles/Vol] 106 mmol/L 98-107 [facility] Work Phone: Glucose [Mass/Vol] 91 mg/dL 74-106 [facility] Work Phone: Potassium [Moles/Vol] 3.4 mmol/L 3.5-5.1 [facility] Work Phone: Sodium [Moles/Vol] 141 mmol/L 136-145 [facility] Work Phone: WBC (Bld) [#/Vol] 10.2 10*3/uL 4.4-11.[address] [facility] Work Phone: Blood erythrocytes count (nu mber/volume)on 12-28-2021 RBC (Bld) [#/Vol] 4.22 10*6/uL 4.6-6.[address] [facility] Work Phone: Blood hemoglobin measurement (mass/volume)on 12-28-2021 Hemoglobin (Bld) [Mass/Vol] 11.2 g/dL 13.0-16.5 [facility] Work Phone: Blood platelet mean volumeon 12-28-2021 Platelet mean volume (Bld) [Entitic vol] 10.1 fL 6.2-12.0 [facility] Work Phone: Determination of erythrocyte mean corpuscular volume (MCV)on 12-28-2021 MCV (RBC) [Entitic vol] 82.7 fL 80-94 [facility] Work Phone: Hematocrit Auto (Bld) [Volum e fraction]on 12-28-2021 Hematocrit (Bld) [Volume fraction] 34.9 % 40-54 [facility] Work Phone: Laboratory - Chemistry and C hemistry - challengeon 12-28-2021 CO2 [Moles/Vol] 30.0 mmol/L 21.0-32.0 [facility] Work Phone: Urea nitrogen/Creatinine [Mass ratio] 33.7 mg/mg 10-20 [facility] Work Phone: Laboratory - Hematology and Cell countson 12-28-2021 Erythrocyte distribution width (RBC) [Entitic vol] 49.1 fL 35.1-43.9 [facility] Work Phone: Erythrocyte distribution width (RBC) [Ratio] 16.5 % 11.6-14.6 [facility] Work Phone: MCH (RBC) [Entitic mass] 26.5 pg 27.0-32.0 [facility] Work Phone: MCHC Auto (RBC) [Mass/Vol]on 12-28-2021 MCHC (RBC) [Mass/Vol] 32.1 g/dL 32-36 [facility] Work Phone: No Panel Informationon 12-28 Estimated GFR (MDRD) Amer 174 mL/min >60 [facility] Work Phone: Comment on above: GFR Calc Estimated GFR (MDRD) Non-Af Amer 143 mL/min >60 [facility] Work Phone: Comment on above: Non- GFR Calc Platelets bldon 12-28-2021 Platelets (Bld) [#/Vol] 339 10*3/uL 150-450 [facility] Work Phone: Serum or plasma calcium oral urement (mass/volume)on 12-28-2021 Calcium [Mass/Vol] 8.6 mg/dL 8.5-10.1 [facility] Work Phone: Serum or plasma creatinine m easurement (mass/volume)on 12-28-2021 Creatinine [Mass/Vol] 0.59 mg/dL 0.70-1.30 [facility] Work Phone: Comment on above: The validity of the calculated GFR & GFRAA in patients over 70 years has not been determined. Clinical correlation is essential. Serum or plasma urea nitroge n measurement (mass/volume)on 12-28-2021 Urea nitrogen [Mass/Vol] 20 mg/dL 7-18 [facility] Work Phone: Thin prep Papanicolaou smear with manual screeningon 12-28-2021 Thin prep Papanicolaou smear with manual screening 5 5-15 [facility] Work Phone: CULTURE BLOODon 12-27-2021 Microscopic examination of blood, culture CULTURE BLOOD --> Status: F No growth at 5 days. Normal [facility] Comment on above: Performed By: #### C /BLD #### [facility] [address] [place] [address] Laboratory - Coagulationon 0 12-26-2021 INR Coag (Bld) [Relative time] 1.7 {INR} [facility] Work Phone: Comment on above: Critical Value > 4.0 Whole blood prothrombin time on 12-26-2021 PT Coag (Bld) [Time] 20.8 s 11.7-14.9 [facility] Work Phone: Basic Metabolic Panelon 12-05 Calcium [Mass/Vol] 8.8 mg/dL Normal 8.4-10.4 [facility] Comment on above: Performed By: #### C RP2, ESR, HEMDF, BMP3 ####[facility] [address] [place] [address] Anion gap [Moles/Vol] 6 mmol/L Normal 3-13 [facility] Comment on above: Performed By: #### C RP2, ESR, HEMDF, BMP3 ####[facility] [place] [address] CO2 [Moles/Vol] 27 mmol/L Normal 22-30 [facility] Comment on above: Performed By: #### C RP2, ESR, HEMDF, BMP3 ####[facility] [address] [place] [address] Glucose [Mass/Vol] 100 mg/dL Normal 70-100 [facility] Comment on above: Performed By: #### C RP2, ESR, HEMDF, BMP3 ####[address] [place] [address] Urea nitrogen [Mass/Vol] 18 mg/dL High 7-17 [facility] Comment on above: Performed By: #### C RP2, ESR, HEMDF, BMP3 ####[facility] [address] [place] [address] Creatinine [Mass/Vol] 0.73 mg/dL Normal 0.52-1.25 [facility] Comment on above: Performed By: #### C RP2, ESR, HEMDF, BMP3 ####[facility] [id number] [place], [place] eGFR OTHER > 90.0 Normal >60 [facility] Comment on above: Result Comment: KDIG [...] By: #### C RP2, ESR, HEMDF, BMP3 ####[facility] [id number] [place], [place] GFR/1.73 sq M.predicted among blacks MDRD (S/P/Bld) [Vol rate/Area] mL/min/{1.73_m2} Normal >60 [facility] Comment on above: Performed By: #### C RP2, ESR, HEMDF, BMP3 ####[facility] [id number] [place], [place] Potassium [Moles/Vol] 3.7 mmol/L Normal 3.5-5.1 [facility] Comment on above: Performed By: #### C RP2, ESR, HEMDF, BMP3 ####[facility] [id number] [place], [place] Chloride [Moles/Vol] 106 mmol/L Normal 98-107 [facility] Comment on above: Performed By: #### C RP2, ESR, HEMDF, BMP3 ####[facility] [address] [place], [place] Sodium [Moles/Vol] 139 mmol/L Normal 135-145 [facility] Comment on above: Performed By: #### C RP2, ESR, HEMDF, BMP3 ####[facility] [address] [place] [address] Anion gap [Moles/Vol] 6 mmol/L 3 - 13 mmol/L [facility] Calcium [Mass/Vol] 8.8 mg/dL 8.4 - 10. 4 mg/dL [facility] Chloride [Moles/Vol] 106 mmol/L 98 - 10 7 mmol/L [facility] CO2 [Moles/Vol] 27 mmol/L 22 - 30 mmol/L [facility] Creatinine [Mass/Vol] 0.73 mg/dL 0.52 - 1.25 mg/dL [facility] eGFR mL/min 60 - P INF mL/min [facility] EGFR IF NonAfrican Somali mL/min 60 - PINF mL/min [facility] Comment on above: KDIGO guidelines [...] 2021 Basophil percentage 25-50 SEEN /hpf 0-5 [facility] Work Phone: Chloride [Moles/Vol] 106 mmol/L 98-[address] [facility] Work Phone: Glucose [Mass/Vol] 93 mg/dL 74-106 [facility] Work Phone: Potassium [Moles/Vol] 3.5 mmol/L 3.5-5.1 [facility] Work Phone: Sodium [Moles/Vol] 140 mmol/L 136-145 [facility] Work Phone: WBC (Bld) [#/Vol] 9.6 10*3/uL 4.4-11.0 [facility] Work Phone: Bilirubin Test strip Ql (U)o n 12-22-2021 Bilirubin Ql (U) Negative Negative [facility] Work Phone: Blood erythrocytes count (nu mber/volume)on 12-22-2021 RBC (Bld) [#/Vol] 4.34 10*6/uL 4.6-6.2 [facility] [facility] Work Phone: Blood hemoglobin measurement (mass/volume)on 12-22-2021 Hemoglobin (Bld) [Mass/Vol] 11.5 g/dL 13.0-16.5 [facility] Work Phone: Blood platelet mean volumeon 12-22-2021 Platelet mean volume (Bld) [Entitic vol] 10.8 fL 6.2-12.0 [facility] Work Phone: C-Reactive Proteinon 022 CRP [Mass/Vol] 27.2 mg/L High 0.0-9.9 [facility] [address] Comment on above: Result Comment: . Performed By: #### C RP2, ESR, HEMDF, BMP3 ####[facility] [id number] [place] [address] CRP [Mass/Vol] 27.2 mg/L High 0 - 9.9 mg/L [employer] Comment on above: . CBC with Auto [...] - 10.7 10*3/uL [facility] Test Performed by [address] [place] [address] [facility] COVID-19, Flu A/B, and RSV C omboon 12-22-2021 Influenza A by PCR Not detected [facility] Influenza B by PCR Not detected [facility] RSV PCR Not Detected. Expected Result: Not Detected _ Method: Real-time, RT-PCR This assay was developed by [employer] and distributed under an Emergency Use Authorization (EUA) granted by the FDA for the qualitative detection of nucleic acids from SARS-CoV-2, Influenza A, Influenza B, and Respiratory Syncytial Virus. Provider and patient fact sheets can be found at https://www.fda.gov/media /963735/download and https://www.fda.gov/media /467168/download. [facility] SARS-CoV-2 (COVID-19) RNA MEGAN+probe Ql (Unsp spec) Not detected [facility] Test Performed by [address] [address] [facility] CR Foot Complete 3+ Views Le fton 12-22-2021 CR Foot Complete 3+ Views Left Patient Name: ANDREW SIFUENTES Diagnostic Radiology ACCESSION EXAM DATE/TIME PROCEDURE ORDERING PROVIDER [id number] 12/22/2021 00:09 EDT CR Foot Complete 3+ SANDY HIDALGO JOHN M Views Left CPT code 21396 Reason For Exam (CR Foot Complete 3+ [...] Transcribed Date and Time: 12/22/2021 0:21 Normal [facility] Calcium oxalate crystals det ection in urine sediment by light microscopyon 12-22-2021 Calcium oxalate crystals LM Ql (Urine sed) 1+ /hpf [facility] Work Phone: Determination of erythrocyte mean corpuscular volume (MCV)on 12-22-2021 MCV (RBC) [Entitic vol] 84.3 fL 80-94 [facility] Work Phone: ED Provider Noteon 2 [...] 79.4 kg (175 lb), SpO2 96 %. [id number] in no acute distress. Alert and oriented [...] mis-transcribed.) Sharon Olivia MD Acute Care [facility] Sharon Olivia MD 12/22/21 0305 [facility] ED Provider Note [facility] EMERGENCY DEPT EMERGENCY DEPARTMENT ENCOUNTER Pt Name: Andrew Sifuentes Birthdate 1950 Date of evaluation: 12/21/2021 Provider: SANIA Lou CHIEF COMPLAINT Chief Complaint Patient presents with Osteomyelitis Patient from [facility] did xrays on left lower leg and and have concerns for possible osteomyelitis A&Ox2 to self and place, stated year 2022 [facility] Miss martini HISTORY OF PRESENT [...] Hemorrhoids Hydrocephalus, adult (HCC) Kidney stone Neuropathy TRIM SETTER HELPER (ventriculoperitoneal) shunt status SURGICAL HISTORY Past Surgical [...] use: No Sexual activity: Not Currently SCREENINGS [place] Coma Scale Eye Opening: Spontaneous Best Verbal [...] soft. Tenderness: (more content not included)... Normal [facility] Hematocrit Auto (Bld) [Volum e fraction]on 12-22-2021 Hematocrit (Bld) [Volume fraction] 36.6 % 40-54 [facility] Work Phone: Hemogram w/ Autodiffon 12-22 Abs Baso Cnt 0.1 10*3/uL Normal 0.0-0.2 [facility] Comment on above: Performed By: #### C RP2, ESR, HEMDF, BMP3 ####[facility] [place] [address] Abs Neutrophile Cnt 5.9 10*3/uL Normal 1.8-7.0 [facility] Comment on above: Performed By: #### C RP2, ESR, HEMDF, BMP3 ####[address] Basophils/100 WBC (Bld) 0.7 % Normal 0.0-2.0 [facility] Comment on above: Performed By: #### C RP2, ESR, HEMDF, BMP3 ####[address] Eosinophils (Bld) [#/Vol] 0.2 10*3/uL Normal 0.0-0.5 [facility] Comment on above: Performed By: #### C RP2, ESR, HEMDF, BMP3 ####[address] Eosinophils/100 WBC (Bld) 2.3 % Normal 1.0-6.0 [facility] Comment on above: Performed By: #### C RP2, ESR, HEMDF, BMP3 ####[address] Erythrocyte distribution width (RBC) [Ratio] 17.5 % High 11.5-14.5 [facility] Comment on above: Performed By: #### C RP2, ESR, HEMDF, BMP3 ####[address] Granulocytes/100 WBC (Bld) 57.8 % Normal 40.0-80.0 [facility] Comment on above: Performed By: #### C RP2, ESR, HEMDF, BMP3 ####[address] Hematocrit (Bld) [Volume fraction] 33.3 % Low 40.0-52.0 [facility] Comment on above: Performed By: #### C RP2, ESR, HEMDF, BMP3 ####[address] Hemoglobin (Bld) [Mass/Vol] 11.0 g/dL Low 13.0-18.0 [facility] Comment on above: Performed By: #### C RP2, ESR, HEMDF, BMP3 ####[id number] [place], [place] Lymphocytes (Bld) [#/Vol] 3.3 10*3/uL Normal 1.0-4.3 [facility] Comment on above: Performed By: #### C RP2, ESR, HEMDF, BMP3 ####[address] [place], [place] Lymphocytes/100 WBC (Bld) 33.0 % Normal 20.0-40.0 [facility] Comment on above: Performed By: #### C RP2, ESR, HEMDF, BMP3 ####[address] MCH (RBC) [Entitic mass] 26.5 pg Normal 26.0-34.0 [facility] Comment on above: Performed By: #### C RP2, ESR, HEMDF, BMP3 ####[id number] [place], [place] MCHC 33.1 % Normal 32.0-36.0 [facility] Comment on above: Performed By: #### C RP2, ESR, HEMDF, BMP3 ####[id number] [place], [place] MCV (RBC) [Entitic vol] 80.2 fL Normal 80.0-98.0 [facility] Comment on above: Performed By: #### C RP2, ESR, HEMDF, BMP3 ####[id number] [place], [place] Monocytes (Bld) [#/Vol] 0.6 10*3/uL Normal 0.0-0.8 [facility] Comment on above: Performed By: #### C RP2, ESR, HEMDF, BMP3 ####[id number] [place], [place] Monocytes/100 WBC (Bld) 6.2 % Normal 2.0-10.0 [facility] Comment on above: Performed By: #### C RP2, ESR, HEMDF, BMP3 ####[address] [address] [place] Platelet mean volume (Bld) [Entitic vol] 8.0 fL Normal 7.4-12.4 [facility] Comment on above: Result Comment: MPV is a calculated measurement using platelet volume ratio. Performed By: #### C RP2, ESR, HEMDF, BMP3 ####[id number] [place], [place] Platelets (Bld) [#/Vol] 368 10*3/uL Normal 140-440 [facility] Comment on above: Performed By: #### C RP2, ESR, HEMDF, BMP3 ####[id number] [place], [place] RBC (Bld) [#/Vol] 4.15 10*6/uL Low 4.40-5.90 [facility] Comment on above: Performed By: #### C RP2, ESR, HEMDF, BMP3 ####[facility] [id number] [place] WBC (Bld) [#/Vol] 10.1 10*3/uL Normal 3.6-10.7 [facility] Comment on above: Performed By: #### C RP2, ESR, HEMDF, BMP3 ####[facility] [id number] [place], [place] Ketones Test strip Ql (U)on 12-22-2021 Ketones Ql (U) Negative Negative [facility] Work Phone: Laboratory - Chemistry and C hemistry - challengeon 12-22-2021 CO2 [Moles/Vol] 27.0 mmol/L 21.0-32.0 [facility] Work Phone: Urea nitrogen/Creatinine [Mass ratio] 22.5 mg/mg 10-20 [facility] Work Phone: Laboratory - Hematology and Cell countson 12-22-2021 Erythrocyte distribution width (RBC) [Entitic vol] 49.1 fL 35.1-43.9 [facility] Work Phone: Erythrocyte distribution width (RBC) [Ratio] 16.1 % 11.6-14.6 [facility] Work Phone: MCH (RBC) [Entitic mass] 26.5 pg 27.0-32.0 [facility] Work Phone: MCHC Auto (RBC) [Mass/Vol]on 12-22-2021 MCHC (RBC) [Mass/Vol] 31.4 g/dL 32-36 [facility] Work Phone: Mucus LM Ql (Urine sed)on Mucus Ql (Urine sed) 0 SEEN /hpf [facility] Work Phone: Nitrite Test strip Ql (U)on 12-22-2021 Nitrite Ql (U) Positive Negative [facility] Work Phone: No Panel Informationon 12-22 Estimated GFR (MDRD) Amer 152 mL/min >60 [facility] Work Phone: Comment on above: GFR Calc Estimated GFR (MDRD) Non-Af Amer 125 mL/min >60 [facility] Work Phone: Comment on above: Non- GFR Calc Interpretation and review of laboratory results Abnormal [facility] Test Performed by [facility], [address] [place] [id number] [facility] Platelets bldon 12-22-2021 Platelets (Bld) [#/Vol] 317 10*3/uL 150-450 [facility] Work Phone: Protein Test strip Ql (U)on 12-22-2021 Protein Ql (U) 30 mg/dl Negative [facility] Work Phone: SARS-CoV-2, Flu A/B and RSVo n 12-22-2021 SARS-CoV-2 (COVID-19) RNA MEGAN+probe Ql (Unsp spec) SARS-CoV-2 --> Status: F Not Detected. Flu A PCR --> Status: F Not Detected. Flu B PCR --> Status: F Not Detected. RSV PCR --> Status: F Not Detected. Expected Result: Not Detected _ Method: Real-time, RT-PCR This assay was developed by [employer] and distributed under an Emergency Use Authorization (EUA) granted by the FDA for the qualitative detection of nucleic acids from SARS-CoV-2, Influenza A, Influenza B, and Respiratory Syncytial Virus. Provider and patient fact sheets can be found at https://www.fda.gov/media /909039/download and https://www.fda.gov/media /469253/download. Expected Result: Not Detected _ Method: Real-time, RT-PCR This assay was developed by [employer] and distributed under an Emergency Use Authorization (EUA) granted by the FDA for the qualitative detection of nucleic acids from SARS-CoV-2, Influenza A, Influenza B, and Respiratory Syncytial Virus. Provider and patient fact sheets can be found at https://www.newScale.gov/media /755528/download and https://www.newScale.gov/media /274734/download. Normal [facility] Comment on above: Performed By: #### C VFLR ####[id number] [place] [address], [id number] Sed Rateon 12-22-2021 Sed Rate 48 mm/h High 0-10 [facility] Comment on above: Performed By: #### C RP2, ESR, HEMDF, BMP3 ####[id number] [place] [address] Sedimentation Rateon 022 Interpretation and review of laboratory results Abnormal [facility] Sed Rate 48 mm/h High 0 - 10 mm/h [facility] by [facility], [address] [place] [address] [facility] Serum or plasma calcium oral urement (mass/volume)on 12-22-2021 Calcium [Mass/Vol] 8.6 mg/dL 8.5-10.1 [facility] Work Phone: Serum or plasma creatinine m easurement (mass/volume)on 12-22-2021 Creatinine [Mass/Vol] 0.67 mg/dL 0.70-1.30 [facility] Work Phone: Comment on above: The validity of the calculated GFR & GFRAA in patients over 70 years has not been determined. Clinical correlation is essential. Serum or plasma urea nitroge n measurement (mass/volume)on 12-22-2021 Urea nitrogen [Mass/Vol] 15 mg/dL - [facility] Work Phone: Squamous epithelial cells de tection in urine sediment by light microscopyon 12-22-2021 Epithelial cells.squamous LM Ql (Urine sed) 0-5 SEEN /hpf 0-5 [facility] Work Phone: Thin prep Papanicolaou smear with manual screeningon 12-22-2021 Thin prep Papanicolaou smear with manual screening 7 -15 [facility] Work Phone: Urine blood detectionon 12-05 RBC Ql (U) 150 /ul Negative [facility] Work Phone: RBC Ql (U) 10-25 SEEN /hpf 0-5 [facility] Work Phone: Urine clarityon 12-22-2021 Clarity (U) Sl. Cloudy Clear [facility] Work Phone: Urine color determinationon 12-22-2021 Color (U) Yellow Yellow [facility] Work Phone: Urine glucose detectionon Glucose Ql (U) Normal mg/dl Normal [facility] Work Phone: Urine leukocyte esterase det ection by dipstickon 12-22-2021 Leukocyte esterase Test strip Ql (U) 500 /ul Negative [facility] Work Phone: Urine pHon 12-22-2021 pH (U) 6.0 [pH] 5.0 - 8.0 [facility] Work Phone: Urine sediment bacteria coun t by microscopy (number/high power field)on 12-22-2021 Bacteria LM.HPF (Urine sed) [#/Area] 2 /[HPF] None Seen [facility] Work Phone: Urine specific gravity measu rementon 12-22-2021 Specific gravity (U) [Rel density] 1.020 1.002-1.030 [facility] Work Phone: Urobilinogen Auto test strip Ql (U)on 12-22-2021 Urobilinogen Ql (U) Normal mg/dl Normal [facility] Work Phone: XR FOOT LEFT (MIN 3 VIEWS)on 12-22-2021 Patient Name: ANDREW SIFUENTES Diagnostic Radiology ACCESSION EXAM DATE/TIME PROCEDURE ORDERING PROVIDER [id number] 12/22/2021 00:09 EDT CR Foot Complete 3+ SANDY HIDALGO JOHN M Views Left CPT code 65682 Reason For Exam (CR Foot Complete 3+ [...] JEFFREY Transcribed Date and Time: 12/22/2021 0:21 [facility] Albert Solano MD - 12/22/2021 Patient Name: ANDREW SIFUENTES Diagnostic Radiology ACCESSION EXAM DATE/TIME PROCEDURE ORDERING PROVIDER [id number] 12/22/2021 00:09 EDT CR Foot Complete 3+ SANDY HIDALGO JOHN M Views Left CPT code 33056 Reason For Exam (CR Foot Complete 3+ [...] JEFFREY Transcribed Date and Time: 12/22/2021 0:21 [facility] Work Phone: Radiology Study observation (narrative) [facility] Work Phone: XR FOOT LEFT (MIN 3 VIEWS)Or dered By: Albert Solano on 12-22-2021 [facility] Work Phone: Basophil percentageon 2021 Chloride [Moles/Vol] 103 mmol/L 98-[address] [facility] [address] [facility] Work Phone: Glucose [Mass/Vol] 92 mg/dL 74-106 [facility]: Potassium [Moles/Vol] 3.5 mmol/L 3.5-5.1 [facility] Work Phone: [phone] Sodium [Moles/Vol] 138 mmol/L 136-145 [facility] Work Phone: WBC (Bld) [#/Vol] 11.2 10*3/uL 4.4-11.0 [facility] Work Phone: Blood erythrocytes count (nu mber/volume)on 12-19-2021 RBC (Bld) [#/Vol] 4.50 10*6/uL 4.6-6.[address] [facility] Work Phone: Blood hemoglobin measurement (mass/volume)on 12-19-2021 Hemoglobin (Bld) [Mass/Vol] 12.2 g/dL 13.0-16.5 [facility] Work Phone: Blood platelet mean volumeon 12-19-2021 Platelet mean volume (Bld) [Entitic vol] 11.3 fL 6.2-12.0 [facility] Work Phone: Determination of erythrocyte mean corpuscular volume (MCV)on 12-19-2021 MCV (RBC) [Entitic vol] 85.6 fL 80-94 [facility] Work Phone: Hematocrit Auto (Bld) [Volum e fraction]on 12-19-2021 Hematocrit (Bld) [Volume fraction] 38.5 % 40-54 [facility] Work Phone: Laboratory - Chemistry and C hemistry - challengeon 12-19-2021 CO2 [Moles/Vol] 30.0 mmol/L 21.0-32.0 [facility] Work Phone: Urea nitrogen/Creatinine [Mass ratio] 27.1 mg/mg 10-20 [facility] Work Phone: Laboratory - Hematology and Cell countson 12-19-2021 Erythrocyte distribution width (RBC) [Entitic vol] 50.5 fL 35.1-43.9 [facility] Work Phone: Erythrocyte distribution width (RBC) [Ratio] 16.0 % 11.6-14.6 [facility] Work Phone: MCH (RBC) [Entitic mass] 27.1 pg 27.0-32.0 [facility] Work Phone: MCHC Auto (RBC) [Mass/Vol]on 12-19-2021 MCHC (RBC) [Mass/Vol] 31.7 g/dL 32-36 [facility] Work Phone: No Panel Informationon 12-19 Estimated GFR (MDRD) Amer 153 mL/min >60 [facility] Work Phone: Comment on above: GFR Calc Estimated GFR (MDRD) Non-Af Amer 126 mL/min >60 [facility] Work Phone: Comment on above: Non- GFR Calc Platelets bldon 12-19-2021 Platelets (Bld) [#/Vol] 363 10*3/uL 150-450 [facility] Work Phone: Serum or plasma calcium oral urement (mass/volume)on 12-19-2021 Calcium [Mass/Vol] 9.5 mg/dL 8.5-10.1 [facility] Work Phone: Serum or plasma creatinine m easurement (mass/volume)on 12-19-2021 Creatinine [Mass/Vol] 0.66 mg/dL 0.70-1.30 [facility] Work Phone: Comment on above: The validity of the calculated GFR & GFRAA in patients over 70 years has not been determined. Clinical correlation is essential. Serum or plasma urea nitroge n measurement (mass/volume)on 12-19-2021 Urea nitrogen [Mass/Vol] 18 mg/dL 7-18 [facility] Work Phone: Thin prep Papanicolaou smear with manual screeningon 12-19-2021 Thin prep Papanicolaou smear with manual screening 5 5-15 [facility] Work Phone: Laboratory - Coagulationon 0 12-12-2021 INR Coag (Bld) [Relative time] 2.0 {INR} [facility] Work Phone: Comment on above: Critical Value > 4.0 Whole blood prothrombin time on 12-12-2021 PT Coag (Bld) [Time] 23.9 s 11.7-14.9 [facility] Work Phone: ANES POSTPROC EVALon 022 ANES POSTPROC EVAL Normal [facility] Laboratory - Coagulationon 0 12-08-2021 INR Coag (Bld) [Relative time] 1.8 {INR} [facility] Work Phone: Comment on above: Critical Value > 4.0 Whole blood prothrombin time on 12-08-2021 PT Coag (Bld) [Time] 21.0 s 11.7-14.9 [facility] Work Phone: Absolute lymphocyte counton 12-05-2021 Lymphocytes Auto (Unsp spec) [#/Vol] 2.97 10*3/uL 0.83-4.51 [facility] Work Phone: Basophil percentageon 2021 Basophils/100 WBC (Bld) 0.6 % 0-1 [facility] Work Phone: Chloride [Moles/Vol] 106 mmol/L 98-107 [facility] Work Phone: Eosinophils/100 WBC (Bld) 2.3 % 0-5 [facility] Work Phone: Glucose [Mass/Vol] 107 mg/dL 74-106 [facility] Work Phone: Comment on above: Fasting Glucose resu lt from 100 to 125 mg/dL suggests IMPAIRED HOMEOSTASIS per A.D.A. criteria. Neutrophils (Bld) [#/Vol] 5.6 10*3/uL 2.0-7.7 [facility] Work Phone: Neutrophils/100 WBC (Bld) 60.2 % 47-70 [facility] Work Phone: Potassium [Moles/Vol] 3.4 mmol/L 3.5-5.1 [facility] Work Phone: Sodium [Moles/Vol] 139 mmol/L 136-145 [facility] Work Phone: WBC (Bld) [#/Vol] 9.3 10*3/uL 4.4-11.0 [facility] Work Phone: Blood erythrocytes count (nu mber/volume)on 12-05-2021 RBC (Bld) [#/Vol] 4.49 10*6/uL 4.6-6.[address] [facility] Work Phone: Blood hemoglobin measurement (mass/volume)on 12-05-2021 Hemoglobin (Bld) [Mass/Vol] 12.1 g/dL 13.0-16.5 [facility] Work Phone: Blood lymphocytes/100 leukoc yteson 12-05-2021 Lymphocytes/100 WBC (Bld) 32.0 % 19-41 [facility] Work Phone: Blood monocytes/100 leukocyt eson 12-05-2021 Monocytes/100 WBC (Bld) 4.7 % 0-10 [facility] Work Phone: Blood platelet mean volumeon 12-05-2021 Platelet mean volume (Bld) [Entitic vol] 10.8 fL 6.2-12.0 [facility] Work Phone: Determination of erythrocyte mean corpuscular volume (MCV)on 12-05-2021 MCV (RBC) [Entitic vol] 84.9 fL 80-94 [facility] Work Phone: Hematocrit Auto (Bld) [Volum e fraction]on 12-05-2021 Hematocrit (Bld) [Volume fraction] 38.1 % 40-54 [facility] Work Phone: INR in Blood by Coagulation assayon 12-05-2021 INR Coag (Bld) [Relative time] 1.8 {INR} [facility] Work Phone: Laboratory - Chemistry and C hemistry - challengeon 12-05-2021 CO2 [Moles/Vol] 29.0 mmol/L 21.0-32.0 [facility] Work Phone: Urea nitrogen/Creatinine [Mass ratio] 25.4 mg/mg 10-20 [facility] Work Phone: Laboratory - Coagulationon 0 12-05-2021 PT Coag (PPP) [Time] 20.5 s 11.7-14.9 [facility] Work Phone: Laboratory - Hematology and Cell countson 12-05-2021 Erythrocyte distribution width (RBC) [Entitic vol] 48.5 fL 35.1-43.9 [facility] Work Phone: Erythrocyte distribution width (RBC) [Ratio] 15.7 % 11.6-14.6 [facility] Work Phone: Immature granulocytes/100 WBC (Bld) 0.200 % 0.0-0.9 [facility] Work Phone: Comment on above: IG% - Immature Granu locytes (promyelocytes, myelocytes and metamyelocytes) > 1% indicates that a LEFT SHIFT is Present. MCH (RBC) [Entitic mass] 26.9 pg 27.0-32.0 [facility] Work Phone: Nucleated RBC/100 WBC (Bld) [Ratio] 0 % 0-5 [facility] Work Phone: MCHC Auto (RBC) [Mass/Vol]on 12-05-2021 MCHC (RBC) [Mass/Vol] 31.8 g/dL 32-36 [facility] Work Phone: No Panel Informationon 12-05 Estimated GFR (MDRD) Amer 133 mL/min >60 [facility] Work Phone: Comment on above: GFR Calc Estimated GFR (MDRD) Non-Af Amer 110 mL/min >60 [facility] Work Phone: Comment on above: Non- GFR Calc Platelets bldon 12-05-2021 Platelets (Bld) [#/Vol] 363 10*3/uL 150-450 [facility] Work Phone: Serum or plasma calcium oral urement (mass/volume)on 12-05-2021 Calcium [Mass/Vol] 9.4 mg/dL 8.5-10.1 [facility] Work Phone: Serum or plasma creatinine m easurement (mass/volume)on 12-05-2021 Creatinine [Mass/Vol] 0.75 mg/dL 0.70-1.30 [facility] Work Phone: Comment on above: The validity of the calculated GFR & GFRAA in patients over 70 years has not been determined. Clinical correlation is essential. Serum or plasma urea nitroge n measurement (mass/volume)on 12-05-2021 Urea nitrogen [Mass/Vol] 19 mg/dL 7-18 [facility] Work Phone: Thin prep Papanicolaou smear with manual screeningon 12-05-2021 Thin prep Papanicolaou smear with manual screening 4 5-15 [facility] Work Phone: Basophil percentageon 2021 Basophil percentage 0 SEEN /hpf 0-5 [facility] Work Phone: Chloride [Moles/Vol] 104 mmol/L 98-107 [facility] Work Phone: Glucose [Mass/Vol] 90 mg/dL 74-106 [facility] Work Phone: Potassium [Moles/Vol] 3.7 mmol/L 3.5-5.1 [facility] Work Phone: Comment on above: Slight Hemolysis, Re sult may be falsely increased. Sodium [Moles/Vol] 138 mmol/L 136-145 [facility] Work Phone: WBC (Bld) [#/Vol] 10.7 10*3/uL 4.4-11.[address] [facility] Work Phone: Bilirubin Test strip Ql (U)o n 12-01-2021 Bilirubin Ql (U) Negative Negative [facility] Work Phone: Blood erythrocytes count (nu mber/volume)on 12-01-2021 RBC (Bld) [#/Vol] 4.33 10*6/uL 4.6-6.[address] [facility] Work Phone: Blood hemoglobin measurement (mass/volume)on 12-01-2021 Hemoglobin (Bld) [Mass/Vol] 11.6 g/dL 13.0-16.5 [facility] Work Phone: Blood platelet mean volumeon 12-01-2021 Platelet mean volume (Bld) [Entitic vol] 11.2 fL 6.2-12.0 [facility] Work Phone: Determination of erythrocyte mean corpuscular volume (MCV)on 12-01-2021 MCV (RBC) [Entitic vol] 85.2 fL 80-94 [facility] Work Phone: Hematocrit Auto (Bld) [Volum e fraction]on 12-01-2021 Hematocrit (Bld) [Volume fraction] 36.9 % 40-54 [facility] Work Phone: Ketones Test strip Ql (U)on 12-01-2021 Ketones Ql (U) Negative Negative [facility] Work Phone: Laboratory - Chemistry and C hemistry - challengeon 12-01-2021 CO2 [Moles/Vol] 27.0 mmol/L 21.0-32.0 [facility] Work Phone: Urea nitrogen/Creatinine [Mass ratio] 24.0 mg/mg 10-20 [facility] Work Phone: Laboratory - Coagulationon 0 12-01-2021 INR Coag (Bld) [Relative time] 1.6 {INR} [facility] Work Phone: Comment on above: Critical Value > 4.0 Laboratory - Hematology and Cell countson 12-01-2021 Erythrocyte distribution width (RBC) [Entitic vol] 47.9 fL 35.1-43.9 [facility] Work Phone: Erythrocyte distribution width (RBC) [Ratio] 15.5 % 11.6-14.6 [facility] Work Phone: MCH (RBC) [Entitic mass] 26.8 pg 27.0-32.0 [facility] Work Phone: MCHC Auto (RBC) [Mass/Vol]on 12-01-2021 MCHC (RBC) [Mass/Vol] 31.4 g/dL 32-36 [facility] Work Phone: Mucus LM Ql (Urine sed)on Mucus Ql (Urine sed) 0 SEEN /hpf [facility] Work Phone: Nitrite Test strip Ql (U)on 12-01-2021 Nitrite Ql (U) Negative Negative [facility] Work Phone: No Panel Informationon 12-01 Estimated GFR (MDRD) Amer 133 mL/min >60 [facility] Work Phone: Comment on above: GFR Calc Estimated GFR (MDRD) Non-Af Amer 110 mL/min >60 [facility] Work Phone: Comment on above: Non- GFR Calc Platelets bldon 12-01-2021 Platelets (Bld) [#/Vol] 336 10*3/uL 150-450 [facility] Work Phone: Protein Test strip Ql (U)on 12-01-2021 Protein Ql (U) 30 mg/dl Negative [facility] Work Phone: Serum or plasma calcium oral urement (mass/volume)on 12-01-2021 Calcium [Mass/Vol] 9.4 mg/dL 8.5-10.1 [facility] Work Phone: Serum or plasma creatinine m easurement (mass/volume)on 12-01-2021 Creatinine [Mass/Vol] 0.75 mg/dL 0.70-1.30 [facility] Work Phone: Comment on above: The validity of the calculated GFR & GFRAA in patients over 70 years has not been determined. Clinical correlation is essential. Serum or plasma urea nitroge n measurement (mass/volume)on 12-01-2021 Urea nitrogen [Mass/Vol] 18 mg/dL 7-18 [facility] Work Phone: Squamous epithelial cells de tection in urine sediment by light microscopyon 12-01-2021 Epithelial cells.squamous LM Ql (Urine sed) 0-5 SEEN /hpf 0-5 [facility] Work Phone: Thin prep Papanicolaou smear with manual screeningon 12-01-2021 Thin prep Papanicolaou smear with manual screening 7 5-15 [facility] Work Phone: Urine blood detectionon 11-05 RBC Ql (U) Negative Negative [facility] Work Phone: RBC Ql (U) 0 SEEN /hpf 0-5 [facility] Work Phone: Urine clarityon 12-01-2021 Clarity (U) Clear Clear [facility] Work Phone: Urine color determinationon 12-01-2021 Color (U) Yellow Yellow [facility] Work Phone: Urine glucose detectionon Glucose Ql (U) 50 mg/dl Normal [facility] Work Phone: Urine leukocyte esterase det ection by dipstickon 12-01-2021 Leukocyte esterase Test strip Ql (U) Negative Negative [facility] Work Phone: Urine pHon 12-01-2021 pH (U) 6.0 [pH] 5.0 - 8.0 [facility] Work Phone: Urine sediment bacteria coun t by microscopy (number/high power field)on 12-01-2021 Bacteria LM.HPF (Urine sed) [#/Area] 0 /[HPF] None Seen [facility] Work Phone: Urine sediment yeast count b y microscopy (number/high powered field)on 12-01-2021 Yeast LM.HPF (Urine sed) [#/Area] 2 /[HPF] None Seen [facility] Work Phone: Urine specific gravity measu rementon 12-01-2021 Specific gravity (U) [Rel density] 1.010 1.002-1.030 [facility] Work Phone: Urobilinogen Auto test strip Ql (U)on 12-01-2021 Urobilinogen Ql (U) Normal mg/dl Normal [facility] Work Phone: Whole blood prothrombin time on 12-01-2021 PT Coag (Bld) [Time] 19.8 s 11.7-14.9 [facility] Work Phone: Laboratory - Coagulationon 0 11-28-2021 INR Coag (Bld) [Relative time] 1.6 {INR} [facility] Work Phone: Comment on above: Critical Value > 4.0 Whole blood prothrombin time on 11-28-2021 PT Coag (Bld) [Time] 18.8 s 11.7-14.9 [facility] Work Phone: INR in Blood by Coagulation assayon 11-23-2021 INR Coag (Bld) [Relative time] 2.7 {INR} [facility] Work Phone: Laboratory - Coagulationon 0 11-23-2021 PT Coag (PPP) [Time] 28.0 s 11.7-14.9 [facility] Work Phone: Laboratory - Coagulationon 0 11-22-2021 INR Coag (Bld) [Relative time] 3.8 {INR} [facility] Work Phone: Comment on above: Critical Value > 4.0 Whole blood prothrombin time on 11-22-2021 PT Coag (Bld) [Time] 42.8 s 11.7-14.9 [facility] Work Phone: INR in Blood by Coagulation assayon 11-21-2021 INR Coag (Bld) [Relative time] 3.9 {INR} [facility] Work Phone: Laboratory - Coagulationon 0 11-21-2021 PT Coag (PPP) [Time] 37.7 s 11.7-14.9 [facility] Work Phone: Whole blood prothrombin time on 11-21-2021 PT Coag (Bld) [Time] 45.5 s 11.7-14.9 [facility] Work Phone: INR in Blood by Coagulation assayon 11-14-2021 INR Coag (Bld) [Relative time] 3.1 {INR} [facility] Work Phone: Laboratory - Coagulationon 0 11-14-2021 PT Coag (PPP) [Time] 31.4 s 11.7-14.9 [facility] Work Phone: Laboratory - Coagulationon 0 11-08-2021 INR Coag (Bld) [Relative time] 2.5 {INR} [facility] Work Phone: Comment on above: Critical Value > 4.0 Whole blood prothrombin time on 11-08-2021 PT Coag (Bld) [Time] 29.0 s 11.7-14.9 [facility] Work Phone: Basophil percentageon 2021 Chloride [Moles/Vol] 106 mmol/L 98-107 [facility] Work Phone: Glucose [Mass/Vol] 100 mg/dL 74-106 [facility] Work Phone: Comment on above: Fasting Glucose resu lt from 100 to 125 mg/dL suggests IMPAIRED HOMEOSTASIS per A.D.A. criteria. Potassium [Moles/Vol] 3.7 mmol/L 3.5-5.1 [facility] Work Phone: Sodium [Moles/Vol] 140 mmol/L 136-145 [facility] Work Phone: WBC (Bld) [#/Vol] 8.8 10*3/uL 4.4-11.0 [facility] Work Phone: Blood erythrocytes count (nu mber/volume)on 11-04-2021 RBC (Bld) [#/Vol] 4.05 10*6/uL 4.6-6.[address] [facility] Work Phone: Blood hemoglobin measurement (mass/volume)on 11-04-2021 Hemoglobin (Bld) [Mass/Vol] 11.1 g/dL 13.0-16.5 [facility] Work Phone: Blood platelet mean volumeon 11-04-2021 Platelet mean volume (Bld) [Entitic vol] 10.8 fL 6.2-12.0 [facility] Work Phone: Determination of erythrocyte mean corpuscular volume (MCV)on 11-04-2021 MCV (RBC) [Entitic vol] 86.9 fL 80-94 [facility] Work Phone: Hematocrit Auto (Bld) [Volum e fraction]on 11-04-2021 Hematocrit (Bld) [Volume fraction] 35.2 % 40-54 [facility] Work Phone: INR in Blood by Coagulation assayon 11-04-2021 INR Coag (Bld) [Relative time] 1.8 {INR} [facility] Work Phone: Laboratory - Chemistry and C hemistry - challengeon 11-04-2021 CO2 [Moles/Vol] 26.0 mmol/L 21.0-32.0 [facility] Work Phone: Urea nitrogen/Creatinine [Mass ratio] 18.3 mg/mg 10-20 [facility] Work Phone: Laboratory - Coagulationon 0 11-04-2021 PT Coag (PPP) [Time] 20.4 s 11.7-14.9 [facility] Work Phone: Laboratory - Hematology and Cell countson 11-04-2021 Erythrocyte distribution width (RBC) [Entitic vol] 48.1 fL 35.1-43.9 [facility] Work Phone: Erythrocyte distribution width (RBC) [Ratio] 15.0 % 11.6-14.6 [facility] Work Phone: MCH (RBC) [Entitic mass] 27.4 pg 27.0-32.0 [facility] Work Phone: MCHC Auto (RBC) [Mass/Vol]on 11-04-2021 MCHC (RBC) [Mass/Vol] 31.5 g/dL 32-36 [facility] Work Phone: No Panel Informationon 11-04 D-Dimer Quantitative (PE/DVT) 0.56 FEU/ug/m 0.27-0.49 [facility] Work Phone: Comment on above: D-Dimer ELEVATED (>0 .49): Additional studies and clinicalassessments are indicated to conclude diagnosis of:Deep Vein Thrombosis (DVT) or Pulmonary Embolism (PE) Estimated GFR (MDRD) Amer 155 mL/min >60 [facility] Work Phone: Comment on above: GFR Calc Estimated GFR (MDRD) Non-Af Amer 128 mL/min >60 [facility] Work Phone: Comment on above: Non- GFR Calc Troponin I High Sensitivity 11 pg/mL 3.0-78.0 [facility] [facility] Work Phone: Comment on above: Please Note: New Fadumo t Units and Gender Specific Reference Ranges. For more information see Policy Stat Procedure [place] High Sensitivity Troponin (TNIH) and attachments. Platelets bldon 11-04-2021 Platelets (Bld) [#/Vol] 364 10*3/uL 150-450 [facility] Work Phone: Serum or plasma C reactive p rotein measurement (mass/volume)on 11-04-2021 CRP [Mass/Vol] 31.90 mg/L 0.0-3.0 [facility] Work Phone: Comment on above: C-Reactive Protein ( CRP) provides useful information for thediagnosis, therapy and monitoring of inflammatory processesand associated diseases. For the evaluation of Relative Riskfor Cardiovascular Disease, a High Sensitivity CRP (HSCRP)should be ordered. Serum or plasma calcium oral urement (mass/volume)on 11-04-2021 Calcium [Mass/Vol] 9.1 mg/dL 8.5-10.1 oste r [facility] Work Phone: Serum or plasma creatinine m easurement (mass/volume)on 11-04-2021 Creatinine [Mass/Vol] 0.66 mg/dL 0.70-1.30 [facility] Work Phone: Comment on above: The validity of the calculated GFR & GFRAA in patients over 70 years has not been determined. Clinical correlation is essential. Serum or plasma urea nitroge n measurement (mass/volume)on 11-04-2021 Urea nitrogen [Mass/Vol] 12 mg/dL 7-18 [facility] Work Phone: Thin prep Papanicolaou smear with manual screeningon 11-04-2021 Thin prep Papanicolaou smear with manual screening 8 5-15 [facility] Work Phone: Complete Urinalysison 2021 Appearance (U) Clear Normal Clear [facility] yoonew Comment on above: Result Comment: . Performed By: #### C UA2 ####ASCENDANT MDX [id number] [place], [place] Bacteria Moderate Abnormal Negative [facility] Drivr Comment on above: Result Comment: . Performed By: #### C UA2 ####ASCENDANT MDX [id number] [place], [place] Bilirubin,Urine Negative Normal Negative [facility] Comment on above: Result Comment: . Performed By: #### C UA2 ####ASCENDANT MDX [id number] [place], [place] Cast, Hyaline Negative Normal Negative [facility] Comment on above: Result Comment: . Performed By: #### C UA2 ####[address] [place], [place] Color (U) Yellow Normal Lt. Yellow [facility] Comment on above: Result Comment: . Performed By: #### C UA2 ####ASCENDANT MDX [id number] [place], [place] Glucose Ql (U) Normal Normal Normal (<70) [facility] Comment on above: Result Comment: . Performed By: #### C UA2 ####ASCENDANT MDX [id number] [place] Ketone,Urine Negative Normal Negative [facility] yoonew Comment on above: Result Comment: . Performed By: #### C UA2 ####ASCENDANT MDX [id number] [place], [place] Leukocytes,Urine Negative Normal Negative [facility] Comment on above: Result Comment: . Performed By: #### C UA2 ####[id number] [place], [place] Mucous Threads Few Normal Negative [facility] Comment on above: Result Comment: . Performed By: #### C UA2 ####[id number] . [place], [place] Nitrites,Urine Negative Normal Negative [facility] Comment on above: Result Comment: . Performed By: #### C UA2 ####[address] [place], [place] Occult Blood,Urine 0.1 mg/dL Abnormal Negative [facility] Comment on above: Result Comment: . Performed By: #### C UA2 ####[address] pH,Urine 5.5 Normal 5.0-8.0 [facility] Comment on above: Result Comment: . Performed By: #### C UA2 ####[address] [place], [place] Protein (U) [Mass/Vol] 10 mg/dL Abnormal Negative [facility] Comment on above: Result Comment: . Performed By: #### C UA2 ####[address] [place], [place] RBC, Urine 26 - 50 Abnormal 0-2 [facility] Comment on above: Result Comment: . Performed By: #### C UA2 ####[address] Specific [place],Urine 1.023 Normal 1.005 - 1.030 [facility] Comment on above: Result Comment: . Performed By: #### C UA2 ####[address] Squamous Epithelial Negative Normal 3-5 [facility] Comment on above: Result Comment: . Performed By: #### C UA2 ####[address] Urobilinogen,Urine Normal Normal Normal (0-1) [facility] Comment on above: Result Comment: . Performed By: #### C UA2 ####[facility] [place] [address] WBC, Urine 0 - 2 Normal 0-5 [facility] Comment on above: Result Comment: . Performed By: #### C UA2 ####[facility] [place] [place] [address] Urinalysison 11-01-2021 Appearance (U) Clear Clear NA [...] Protein (U) [Mass/Vol] 10 mg/dL Abnormal Negative [facility] Comment on above: . RBC, UA 26-50 Abnormal 0 - 2 /[HPF] [facility] Comment on above: . Specific [place], Urine 1.023 [facility] Comment on above: . Squam Epithel, UA Negative 3 - 5 /[HPF] [facility] Comment on above: . Urobilinogen, Urine Normal Normal ( 0-1) mg/dL [facility] Comment on above: . WBC, UA 0-2 0 - 5 /[HPF] [facility] Comment on above: . Test Performed by [facility], [address] [place] [address] [facility] Basic Metabolic Panelon 10-06 Anion gap [Moles/Vol] 6 mmol/L Normal 3-13 [facility] Comment on above: Performed By: #### P T/AP, TROPN, BMP3, HEMDF #### [facility] [address] [place], [place] Calcium [Mass/Vol] 9.1 mg/dL Normal 8.4-10.4 [facility] Comment on above: Performed By: #### P T/AP, TROPN, BMP3, HEMDF #### [facility] [address] [place], [place] CO2 [Moles/Vol] 28 mmol/L Normal 22-30 [facility] Comment on above: Performed By: #### P T/AP, TROPN, BMP3, HEMDF #### [facility] [address] [place], [place] Glucose [Mass/Vol] 120 mg/dL High 70-100 [facility] Comment on above: Performed By: #### P T/AP, TROPN, BMP3, HEMDF #### [address] [place], [place] Urea nitrogen [Mass/Vol] 17 mg/dL Normal 7-17 [facility] Comment on above: Performed By: #### P T/AP, TROPN, BMP3, HEMDF #### [facility] [address] [place], [place] Creatinine [Mass/Vol] 0.65 mg/dL Normal 0.52-1.25 [facility] Comment on above: Performed By: #### P T/AP, TROPN, BMP3, HEMDF #### [facility] [address] [place], [place] eGFR OTHER > 90.0 Normal >60 [facility] Comment on above: Result Comment: KDIG [...] #### P T/AP, TROPN, BMP3, HEMDF #### [address] [place], [place] GFR/1.73 sq M.predicted among blacks MDRD (S/P/Bld) [Vol rate/Area] mL/min/{1.73_m2} Normal >60 [facility] Comment on above: Performed By: #### P T/AP, TROPN, BMP3, HEMDF #### [address] [place], [place] Potassium [Moles/Vol] 3.8 mmol/L Normal 3.5-5.1 [facility] Comment on above: Performed By: #### P T/AP, TROPN, BMP3, HEMDF #### [address] [address] [place], [place] Chloride [Moles/Vol] 101 mmol/L Normal 98-107 [facility] Comment on above: Performed By: #### P T/AP, TROPN, BMP3, HEMDF #### [address] [place], [place] Sodium [Moles/Vol] 134 mmol/L Low 135-145 [facility] Comment on above: Performed By: #### P T/AP, TROPN, BMP3, HEMDF #### [address] [place], [place] Anion gap [Moles/Vol] 6 mmol/L 3 - 13 mmol/L [facility] Calcium [Mass/Vol] 9.1 mg/dL 8.4 - 10. 4 mg/dL [facility] Chloride [Moles/Vol] 101 mmol/L 98 - 10 7 mmol/L [facility] CO2 [Moles/Vol] 28 mmol/L 22 - 30 mmol/L [facility] Creatinine [Mass/Vol] 0.65 mg/dL 0.52 - 1.25 mg/dL [facility] EGFR IF NonAfrican Somali >90.0 >60 mL/min [facility] Comment on above: KDIGO guidelines [...] [Mass/Vol] 17 mg/dL 7 - 17 mg/dL [facility] Test Performed by [facility], [address] [place] [id number] [place] [address] LAB [facility] CBC with Auto Differentialon 10-31-2021 [...] - 10.7 10*3/uL [facility] Test Performed by [address] LAB [facility] CR Abdomen APon 10-31-2021 CR Abdomen AP Patient Name: ANDREW SIFUENTES Diagnostic Radiology ACCESSION EXAM DATE/TIME PROCEDURE ORDERING PROVIDER [id number] 10/31/2021 20:36 EDT CR Abdomen AP [id number] -MYRON DURAN CPT code 19558 Reason For Exam (CR Abdomen AP) vp compliance shunt, 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 CHEST PORTABLE [...] Transcribed Date and Time: 10/31/2021 8:49 Normal [facility] CR Chest Portableon 11-01-19 22 CR Chest Portable [id number] Radiology ACCESSION EXAM DATE/TIME PROCEDURE ORDERING PROVIDER [id number] 10/31/2021 20:36 EDT CR Chest Portable [id number] MYRON GALINDO CPT code 16782 Reason For Exam (CR Chest Portable) AMS [...] Transcribed Date and Time: 10/31/2021 8:[address] [facility] [address] HEAD WO CONTRASTon 2021 Patient Name: ANDREW SIFUENTES Computed Tomography ACCESSION EXAM DATE/TIME PROCEDURE ORDERING PROVIDER [id number] 10/31/2021 20:[address] Head or Brain w/o [id number] -MYRON DURAN Contrast CPT code 84520 Reason For Exam (CT Head or Brain w/o Contrast) AMS, previous TRIM SETTER HELPER shunt Report Examination: CT Head Clinical Information: AMS, previous TRIM SETTER HELPER shunt Comparison: 10/26/2021, MRI 10/27/2021 Findings: Serial [...] J Transcribed Date and Time: 10/31/2021 8:54 [facility] Alan Wong MD - 10/31/2021 [facility] Name[id number] Computed Tomography ACCESSION EXAM DATE/TIME PROCEDURE ORDERING PROVIDER [id number] 10/31/2021 20:[address] Head or Brain w/o [id number] -MYRON DURAN Contrast CPT code 11406 Reason For Exam (CT Head or Brain w/o Contrast) AMS, previous TRIM SETTER HELPER shunt Report Examination: CT Head Clinical Information: AMS, previous TRIM SETTER HELPER shunt Comparison: 10/26/2021, MRI 10/27/2021 Findings: Serial [...] Brain w/o Contrast Patient [facility]: [id number] Computed Tomography ACCESSION EXAM DATE/TIME PROCEDURE ORDERING PROVIDER [id number] 10/31/2021 20:[address] Head or Brain w/o [id number] -DURAN, MYRON Contrast CPT code 05187 Reason For Exam (CT Head or Brain w/o Contrast) AMS, 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 Altered Mental Status Pt presents to ED via [facility] for complaint listed. Pt is from [place] [facility]. Pt's LKW was 1000 hours [...] have a history of hydrocephalus with a TRIM SETTER HELPER shunt. 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 REVIEW OF [...] (HCC) ? Kidney stone ? Neuropathy ? TRIM SETTER HELPER (ventriculoperitoneal) shunt status SURGICAL HISTORY Past Surgical [...] of Transportati (more content not included)... Normal [facility] EKG 12 Lead - Chest Painon 0 10-31-2021 [facility] Test Date: 2021-10-31 Pat Name: ANDREW SIFUENTES Department: [facility] Room: 40 Gender: M Entry Analyst: ANDRES : 1950 Requested By: MYRON DURAN Order Number: [id number] Reading MD: Dante Kim Measurements Intervals [place] Rate: 91 P: 41 TX: 154 QRS: 50 QRSD: 147 T: 8 QT: 385 QTc: 474 Interpretive Statements Sinus rhythm Right bundle branch block Electronically Signed On 10-31-2021 20:36:25 EDT by Dante Kim [facility] Dante Kim M D - 10/31/2021 [facility] Test Date: 2021-10-31 Pat Name: ANDREW SIFUENTES Department: [facility] Room: 40 Gender: M Entry Analyst: ANDRES : 1950 Requested By: MYRON DURAN Order Number: [id number] Reading MD: Dante Kim Measurements Intervals [place] Rate: 91 P: 41 TX: 154 QRS: 50 QRSD: 147 T: 8 QT: 385 QTc: 474 Interpretive Statements Sinus rhythm Right bundle branch block Electronically Signed On 10-31-2021 20:36:25 EDT by Dante Kim [facility] Work Phone: EKG 12 Lead - Chest PainOrde red By: Dante Kim on 10-31-2021 [facility] Work Phone: Hemogram w/ Autodiffon 10-31 Abs Baso Cnt 0.1 10*3/uL Normal 0.0-0.2 [facility] Comment on above: Performed By: #### P T/AP, TROPN, BMP3, HEMDF #### [facility] [facility] [address] [place] [address] Abs Neutrophile Cnt 6.0 10*3/uL Normal 1.8-7.0 [facility] Comment on above: Performed By: #### P T/AP, TROPN, BMP3, HEMDF #### [address] [place], [place] Basophils/100 WBC (Bld) 1.1 % Normal 0.0-2.0 [facility] Comment on above: Performed By: #### P T/AP, TROPN, BMP3, HEMDF #### [address] [place], [place] Eosinophils (Bld) [#/Vol] 0.2 10*3/uL Normal 0.0-0.5 [facility] Comment on above: Performed By: #### P T/AP, TROPN, BMP3, HEMDF #### [address] Eosinophils/100 WBC (Bld) 2.3 % Normal 1.0-6.0 [facility] Comment on above: Performed By: #### P T/AP, TROPN, BMP3, HEMDF #### [address] Erythrocyte distribution width (RBC) [Ratio] 17.2 % High 11.5-14.5 [facility] Comment on above: Performed By: #### P T/AP, TROPN, BMP3, HEMDF #### [address] Granulocytes/100 WBC (Bld) 61.8 % Normal 40.0-80.0 [facility] Comment on above: Performed By: #### P T/AP, TROPN, BMP3, HEMDF #### [address] [place], [place] Hematocrit (Bld) [Volume fraction] 35.0 % Low 40.0-52.0 [facility] Comment on above: Performed By: #### P T/AP, TROPN, BMP3, HEMDF #### [address] [place], [place] Hemoglobin (Bld) [Mass/Vol] 11.3 g/dL Low 13.0-18.0 [facility] Comment on above: Performed By: #### P T/AP, TROPN, BMP3, HEMDF #### [address] [place], [place] Lymphocytes (Bld) [#/Vol] 2.8 10*3/uL Normal 1.0-4.3 [facility] Comment on above: Performed By: #### P T/AP, TROPN, BMP3, HEMDF #### [address] [place], [place] Lymphocytes/100 WBC (Bld) 29.2 % Normal 20.0-40.0 [facility] Comment on above: Performed By: #### P T/AP, TROPN, BMP3, HEMDF #### [address] [place], [place] MCH (RBC) [Entitic mass] 27.5 pg Normal 26.0-34.0 [facility] Comment on above: Performed By: #### P T/AP, TROPN, BMP3, HEMDF #### [address] [place], [place] MCHC 32.3 % Normal 32.0-36.0 [facility] Comment on above: Performed By: #### P T/AP, TROPN, BMP3, HEMDF #### [address] [place], [place] MCV (RBC) [Entitic vol] 85.0 fL Normal 80.0-98.0 [facility] Comment on above: Performed By: #### P T/AP, TROPN, BMP3, HEMDF #### [address] [place], [place] Monocytes (Bld) [#/Vol] 0.5 10*3/uL Normal 0.0-0.8 [facility] Comment on above: Performed By: #### P T/AP, TROPN, BMP3, HEMDF #### [address] Monocytes/100 WBC (Bld) 5.6 % Normal 2.0-10.0 [facility] Comment on above: Performed By: #### P T/AP, TROPN, BMP3, HEMDF #### [address] [place], [place] Platelet mean volume (Bld) [Entitic vol] 8.6 fL Normal 7.4-12.4 [facility] Comment on above: Result Comment: MPV is a calculated measurement using platelet volume ratio. Performed By: #### P T/AP, TROPN, BMP3, HEMDF #### [facility] [address] [place], [place] Platelets (Bld) [#/Vol] 348 10*3/uL Normal 140-440 [facility] Comment on above: Performed By: #### P T/AP, TROPN, BMP3, HEMDF #### [address] [place], [place] RBC (Bld) [#/Vol] 4.12 10*6/uL Low 4.40-5.90 [facility] Comment on above: Performed By: #### P T/AP, TROPN, BMP3, HEMDF #### [facility] [address] [place], [place] WBC (Bld) [#/Vol] 9.7 10*3/uL Normal 3.6-10.7 [facility] Comment on above: Performed By: #### P T/AP, TROPN, BMP3, HEMDF #### [facility] [address] [place], [place] Laboratory - Coagulationon 0 10-31-2021 INR Coag (Bld) [Relative time] 2.0 {INR} [facility] Work Phone: Comment on above: Critical Value > 4.0 No Panel Informationon 10-31 Radiology Study observation (narrative) [facility] Work Phone: PROTIME/INR & PTTon 11-01-19 22 aPTT Coag (Bld) [Time] 39.2 s High 20.0 - 30.5 s [facility] Comment on above: NOTE: The therapeuti c time for Heparin anticoagulation, based on Xa activity inhibition, is an APTT of 46-80 seconds. INR Coag (Bld) [Relative time] 1.9 {INR} High [facility] Comment on above: Recommended Anticoag [...] Interpretation and review of laboratory results Abnormal [facility] PT Coag (PPP) [Time] 19.8 s High 9.0 - 12.0 s [facility] Comment on above: . Test Performed by [facility], [address] [place] [address] - [facility] Protime AND APTTon 2 aPTT Coag (Bld) [Time] 39.2 s High 20.0-30.5 [facility] Comment on above: Result Comment: NOTE : The therapeutic time for Heparin anticoagulation, based on Xa activity inhibition, is an APTT of 46-80 seconds. Performed By: #### P T/AP, TROPN, BMP3, HEMDF #### [address] [address] INR 1.9 High 0.9-1.1 [facility] Comment on above: Result Comment: Harry [...] #### P T/AP, TROPN, BMP3, HEMDF #### [facility] [address] [place] [address] PT Coag (PPP) [Time] 19.8 s High 9.0-12.0 [facility] Comment on above: Result Comment: . Performed By: #### P T/AP, TROPN, BMP3, HEMDF #### [facility] [address] [place] [address] Troponin Ion 10-31-2021 Troponin I.cardiac [Mass/Vol] ng/mL Normal 0.000-0.034 [facility] Comment on above: Result Comment: . Performed By: #### P T/AP, TROPN, BMP3, HEMDF #### [facility] [address] [place] [address] Troponin x1on 10-31-2021 Troponin I.cardiac [Mass/Vol] ng/mL 0.000 - 0.034 ng/mL [facility] Comment on above: . Test Performed by [facility], [address] [place] [address] [facility] Whole blood prothrombin time on 10-31-2021 PT Coag (Bld) [Time] 23.7 s 11.7-14.9 [facility] Work Phone: XR ABDOMEN (KUB) (SINGLE AP VIEW)on 10-31-2021 Patient Name: ANDREW SIFUENTES Diagnostic Radiology ACCESSION EXAM DATE/TIME PROCEDURE ORDERING PROVIDER [id number] 10/31/2021 20:36 EDT CR Abdomen AP [id number] -MYRON DURAN CPT code 43601 Reason For Exam (CR Abdomen AP) vp compliance shunt, 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 CHEST PORTABLE [...] WENDELL Transcribed Date and Time: 10/31/2021 8:49 [facility] - 10/31/2021 Patient Name: ANDREW SIFUENTES Diagnostic Radiology ACCESSION EXAM DATE/TIME PROCEDURE ORDERING PROVIDER [id number] 10/31/2021 20:36 EDT CR Abdomen AP [id number] -DURAN MYRON CPT code 33856 Reason For Exam (CR Abdomen AP) vp compliance shunt, 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 CHEST PORTABLE [...] and Time: 10/31/2021 8:49 [facility] Work Phone: [facility] Work Phone: XR CHEST PORTABLEon 11-01-19 Patient Name: ANDREW SIFUENTES Diagnostic Radiology ACCESSION EXAM DATE/TIME PROCEDURE ORDERING PROVIDER [id number] 10/31/2021 20:36 EDT CR Chest Portable [id number] PERDOMO CPT code 62242 Reason For Exam (CR Chest Portable) AMS [...] WENDELL Transcribed Date and Time: 10/31/2021 8:49 [facility] Huang Reynoso MD - 10/31/2021 Patient Name: ANDREW SIFUENTES Diagnostic Radiology ACCESSION EXAM DATE/TIME PROCEDURE ORDERING PROVIDER [id number] 10/31/2021 20:36 EDT CR Chest Portable [id number] MYRON GALINDO CPT code 57349 Reason For Exam (CR Chest Portable) AMS [...] WENDELL Transcribed Date and Time: 10/31/2021 8:49 [facility] Work Phone: XR CHEST PORTABLEOrdered By: Huang Reynoso on 10-31-2021 [facility] Work Phone: Lupus Anticoagulanton 2021 DRVVT Confirmation Test Not Applicable Negative ratio [facility] Work Phone: dRVVT Screen 38 [facility] Work Phone: Hex Phosph Neut Test Not Applicable Negative NA [facility] Work Phone: Interpretation and review of laboratory results Abnormal [facility] Work Phone: LUPUS INTERPRETATION See Note [facility] Work Phone: Comment on above: Lupus [...] has not already been performed. Performed by [facility], [address], [facility] [address] [email or web address], Quiana Castro MD - Lab. Director Platelet Neutralization Not Applicable Negative NA [facility] Work Phone: PTT-D Heparin Neutralized 48 [facility] Work Phone: PTT-LA 55 High [facility] Work Phone: Reptilase Tm 17.6 <=21.9 sec [facility] Work Phone: Thrombin Time 25.3 High [facility] Work Phone: [facility] Work Phone: Lupus Anticoagulant Reflexiv e Panelon 10-29-2021 aPTT Coag (Bld) [Time] 55 s High 32-48 [facility] Comment on above: Performed By: #### C OVAG #### [facility] [address] [place] [address] aPTT Coag (Bld) [Time] 48 s Normal 32-48 [facility] Comment on above: Performed By: #### C OVAG #### [facility] [address] [place] [address] DRVVT 1:1 Mix Not Applicable Normal 33-44 [facility] Work Phone: Comment on above: Performed By: #### C OVAG #### [facility] [address] [place] [address] dRVVT Confirmation Not Applicable Normal Negative [facility] Comment on above: Performed By: #### C OVAG #### [facility] [address] [place] [address] dRVVT Screen 38 sec Normal 33-44 [facility] Comment on above: Performed By: #### C OVAG #### [facility] [address] [place] [address] Hexagonal Phospholipid Neutral Reflex Not Applicable Normal Negative [facility] Comment on above: Performed By: #### C OVAG #### [facility] [address] [place] [address] Lupus Anticoagulant Interpretation See Note Normal [facility] Comment on above: Result Comment: Lupu [...] has not already been performed. Performed by [facility], [address] [place] [id number] [email or web address], Quiana Castro MD - Lab. Director Performed By: #### C OVAG #### [facility] [address] [place] [address] Platelet Neutralization (PTT-D, Confirm) Not Applicable Normal Negative [facility] Comment on above: Performed By: #### C OVAG #### [facility] [address] [place] [address] PT Coag (PPP) [Time] 14.7 s Normal 12.0-15.5 [facility] Work Phone: Comment on above: Performed By: #### C OVAG #### [facility] [address] [facility] [place] [address] PTT-D 1:1 Mix Not Applicable Normal 32-48 [facility] Work Phone: Comment on above: Performed By: #### C OVAG #### [facility] [address] [facility] [place] [address] Reptilase Time 17.6 sec Normal <=21.9 [facility] Comment on above: Performed By: #### C OVAG #### [facility] [address] [place] [address] Thrombin Time 25.3 sec High 14.7-19.5 [facility] Comment on above: Performed By: #### C OVAG #### [facility] [address] [place] [address] POCT COVID-19, Antigenon SARS-CoV-2 Nucleocapsid Antigen Negative Negative NA [facility] Comment on above: A negative result does not rule out the possibility of SARS-CoV-2 infection. NAAT-based methods should be considered for symptomatic patients presenting greater than seven days after onset of symptoms. Method: Lateral flow immunoassay. Fact sheets for healthcare providers and patients can be found at the following sites: https://www.newScale.gov/media/783166/download https://www.newScale.gov/media/659021/download Test Performed by [facility], [address] [place], [place] [address] [facility] Prothrombin Timeon INR 2.7 High 0.9-1.1 [facility] Comment on above: Result Comment: Harry [...] Infarction Performed By: #### P T #### [facility] [address] [place] [address] PT Coag (PPP) [Time] 27.4 s High 9.0-12.0 [facility] Comment on above: Result Comment: . Performed By: #### P T #### [facility] [address] [place] [address] Protime-INRon 10-29-2021 INR Coag (Bld) [Relative time] 2.7 {INR} High [facility] Work Phone: Comment on above: [...] Interpretation and review of laboratory results Abnormal [facility] Work Phone: 1 PT Coag (PPP) [Time] 27.4 s High 9.0 - 12.0 s [facility] Work Phone: Comment on above: . Test Performed by [facility], [address], [place], [place] [address] [facility] Work Phone: SARS-CoV-2 Antigenon 022 SARS-CoV-2 Antigen Negative Normal Negative [facility] Comment on above: Result Comment: A negative result does not rule out the possibility of SARS-CoV-2 infection. NAAT-based methods should be considered for symptomatic patients presenting greater than seven days after onset of symptoms. Method: Lateral flow immunoassay. Fact sheets for healthcare providers and patients can be found at the following sites: https://www.newScale.gov/media/945180/download https://www.newScale.gov/media/727048/download Performed By: #### C OVAG #### [facility] [address] [place] [address] CBCon 10-28-2021 Hematocrit (Bld) [Volume fraction] 33.4 % Low 40.0 - 52.0 % [facility] Work Phone: Hemoglobin (Bld) [Mass/Vol] 11.0 g/dL Low 13.0 - 18.0 g/dL [facility] Work Phone: 1 Interpretation and review of laboratory results Abnormal [facility] Work Phone: MCH (RBC) [Entitic mass] 27.8 pg 26.0 - 34.0 pg [facility] Work Phone: MCHC (RBC) [Mass/Vol] 32.8 % 32.0 - 36.0 % [facility] Work Phone: MCV (RBC) [Entitic vol] 84.8 fL 80.0 - 98.0 fL [facility] Work Phone: Platelet distribution width (Bld) [Ratio] 17.1 % High 11.5 - 14.5 % [facility] Work Phone: ) Platelet mean volume (Bld) [Entitic vol] 8.3 fL 7.4 - 12.4 fL [facility] Work Phone: [phone] Comment on above: MPV is a calculated measurement using platelet volume ratio. Platelets (Bld) [#/Vol] 344 10*3/uL 140 - 440 10*3/uL [facility] Work Phone: 1 RBC (Bld) [#/Vol] 3.94 10*6/uL Low 4.40 - 5.9 0 10*6/uL [facility] Work Phone: 1) WBC (Bld) [#/Vol] 10.0 10*3/uL 3.6 - 10.7 10*3/uL [facility] Work Phone: [phone] Test Performed by [facility], [address] [place], [place] [address] [facility] Work Phone: [phone] Comp Metabolic Panelon 10-28 ALP [Catalytic activity/Vol] 103 U/L Normal 38-126 [facility] Comment on above: Performed By: #### C A19O, LUPUS #### The performing lab is in the report. #### NSEO #### [facility] #### HEMDF, LDH3, BMP3, MG3, PT, CEA2 #### [facility] [address] [place] [address] #### B2GPM, B2GPA, B2GPG #### [address] [id number] ALT [Catalytic activity/Vol] 26 U/L Normal 0-49 [facility] Comment on above: Result Comment: The ALT test is performed by an updated assay method. Please note that the reference intervals have been changed and are now sex specific. Performed By: #### C A19O, LUPUS #### The performing lab is in the report. #### NSEO #### [facility] #### HEMDF, LDH3, BMP3, MG3, PT, CEA2 #### [facility] [address] [place] [address] #### B2GPM, B2GPA, B2GPG #### [address] AST [Catalytic activity/Vol] 24 U/L Normal 15-46 [facility] Comment on above: Performed By: #### C A19O, LUPUS #### The performing lab is in the report. #### NSEO #### [facility] #### HEMDF, LDH3, BMP3, MG3, PT, CEA2 #### [facility] [address] [place] #### B2GPM, B2GPA, B2GPG #### [address] Calcium [Mass/Vol] 9.1 mg/dL Normal 8.4-10.4 [facility] Comment on above: Performed By: #### C A19O, LUPUS #### The performing lab is in the report. #### NSEO #### [facility] #### HEMDF, LDH3, BMP3, MG3, PT, CEA2 #### [facility] [address] [place] #### B2GPM, B2GPA, B2GPG #### [address] Glucose [Mass/Vol] 117 mg/dL High 70-100 [facility] Comment on above: Performed By: #### C A19O, LUPUS #### The performing lab is in the report. #### NSEO #### [facility] #### HEMDF, LDH3, BMP3, MG3, PT, CEA2 #### [facility] [address] [place] #### B2GPM, B2GPA, B2GPG #### [address] Urea nitrogen [Mass/Vol] 16 mg/dL Normal 7-17 [facility] Comment on above: Performed By: #### C A19O, LUPUS #### The performing lab is in the report. #### NSEO #### [facility] #### HEMDF, LDH3, BMP3, MG3, PT, CEA2 #### [place] [address] [place] [address] #### B2GPM, B2GPA, B2GPG #### [address] Anion gap [Moles/Vol] 5 mmol/L Normal 3-13 [facility] Comment on above: Performed By: #### C A19O, LUPUS #### The performing lab is in the report. #### NSEO #### [facility] #### HEMDF, LDH3, BMP3, MG3, PT, CEA2 #### [address] [place] #### B2GPM, B2GPA, B2GPG #### [address] Bilirubin [Mass/Vol] 0.4 mg/dL Normal 0.2-1.3 [facility] Comment on above: Performed By: #### C A19O, LUPUS #### The performing lab is in the report. #### NSEO #### [facility] #### HEMDF, LDH3, BMP3, MG3, PT, CEA2 #### [address] [place] #### B2GPM, B2GPA, B2GPG #### [address] CO2 [Moles/Vol] 29 mmol/L Normal 22-30 [facility] Comment on above: Performed By: #### C A19O, LUPUS #### The performing lab is in the report. #### NSEO #### [facility] #### HEMDF, LDH3, BMP3, MG3, PT, CEA2 #### [address] [place] #### B2GPM, B2GPA, B2GPG #### [address] [place], [place] Creatinine [Mass/Vol] 0.71 mg/dL Normal 0.52-1.25 [facility] Comment on above: Performed By: #### C A19O, LUPUS #### The performing lab is in the report. #### NSEO #### [facility] #### HEMDF, LDH3, BMP3, MG3, PT, CEA2 #### [facility] [address] [place] [address] #### B2GPM, B2GPA, B2GPG #### [address] eGFR OTHER > 90.0 Normal >60 [facility] Comment on above: Result Comment: KDIG [...] HEMDF, LDH3, BMP3, MG3, PT, CEA2 #### [facility] [address] [place] [address] #### B2GPM, B2GPA, B2GPG #### [address] GFR/1.73 sq M.predicted among blacks MDRD (S/P/Bld) [Vol rate/Area] mL/min/{1.73_m2} Normal >60 [facility] Comment on above: Performed By: #### C A19O, LUPUS #### The performing lab is in the report. #### NSEO #### [facility] #### HEMDF, LDH3, BMP3, MG3, PT, CEA2 #### [place] [address] [place] [address] #### B2GPM, B2GPA, B2GPG #### [address] Protein [Mass/Vol] 7.1 g/dL Normal 6.3-8.2 [facility] Comment on above: Performed By: #### C A19O, LUPUS #### The performing lab is in the report. #### NSEO #### [facility] #### HEMDF, LDH3, BMP3, MG3, PT, CEA2 #### [address] [place] [address] #### B2GPM, B2GPA, B2GPG #### [address] Potassium [Moles/Vol] 3.5 mmol/L Normal 3.5-5.1 [facility] Comment on above: Performed By: #### C A19O, LUPUS #### The performing lab is in the report. #### NSEO #### [facility] #### HEMDF, LDH3, BMP3, MG3, PT, CEA2 #### [address] [place] [address] #### B2GPM, B2GPA, B2GPG #### [address] Sodium [Moles/Vol] 138 mmol/L Normal 135-145 [facility] Comment on above: Performed By: #### C A19O, LUPUS #### The performing lab is in the report. #### NSEO #### [facility] #### HEMDF, LDH3, BMP3, MG3, PT, CEA2 #### [place] [address] [place] [address] #### B2GPM, B2GPA, B2GPG #### [address] Albumin [Mass/Vol] 3.7 g/dL Normal 3.5-5.0 [facility] Comment on above: Performed By: #### C A19O, LUPUS #### The performing lab is in the report. #### NSEO #### [facility] #### HEMDF, LDH3, BMP3, MG3, PT, CEA2 #### [place] [address] [place] [address] #### B2GPM, B2GPA, B2GPG #### [address] Chloride [Moles/Vol] 104 mmol/L Normal 98-107 [facility] Comment on above: Performed By: #### C A19O, LUPUS #### The performing lab is in the report. #### NSEO #### [facility] #### HEMDF, LDH3, BMP3, MG3, PT, CEA2 #### [address] [place] [address] #### B2GPM, B2GPA, B2GPG #### [address] Comprehensive Metabolic Pane kiel 10-28-2021 Albumin [Mass/Vol] 3.7 g/dL 3.5 - 5.0 g/dL [facility] Work Phone: ALP (Bld) [Catalytic activity/Vol] 103 U/L 38 - 126 U/L [facility] Work Phone: ALT [Catalytic activity/Vol] 26 U/L 0 - 49 U/L [facility] Work Phone: Comment on above: The ALT test is perf ormed by an updated assay method. Please note that the reference intervals have been changed and are now sex specific. Anion gap [Moles/Vol] 5 mmol/L 3 - 13 mmol/L [facility] Work Phone: [phone] AST [Catalytic activity/Vol] 24 U/L 15 - 46 U/L [facility] Work Phone: [phone] Bilirubin [Mass/Vol] 0.4 mg/dL 0.2 - 1 .3 mg/dL [facility] Work Phone: ) [phone] Calcium [Mass/Vol] 9.1 mg/dL 8.4 - 10. 4 mg/dL [facility] Work Phone: ) 222 Chloride [Moles/Vol] 104 mmol/L 98 - 10 7 mmol/L [facility] Work Phone: () 222 CO2 [Moles/Vol] 29 mmol/L 22 - 30 mmol/L [facility] Work Phone: Creatinine [Mass/Vol] 0.71 mg/dL 0.52 - 1.25 mg/dL [facility] Work Phone: [phone] IF NonAfrican Somali >90.0 >60 mL/min [facility] Work Phone: Comment on above: [...] g/dL 6.3 - 8.2 g/dL [facility] Work Phone: [phone] GFR/1.73 sq M.predicted among blacks MDRD (S/P/Bld) [Vol rate/Area] mL/min/{1.73_m2} >60 mL/min [facility] Work Phone: Glucose [Mass/Vol] 117 mg/dL High 70 - 100 mg/dL [facility] Work Phone: [phone] Interpretation and review of laboratory results Abnormal [facility] Work Phone: [phone] Potassium [Moles/Vol] 3.5 mmol/L 3.5 - 5.1 mmol/L [facility] Work Phone: [phone] Sodium [Moles/Vol] 138 mmol/L 135 - 145 mmol/L [facility] Work Phone: [phone] Urea nitrogen (BldV) [Mass/Vol] 16 mg/dL 7 - 17 mg/dL [facility] Work Phone: [phone] Test Performed by [facility], [address] [place], [place] [id number] [place] [address] LAB [facility] Work Phone: [phone] Hemogramon 10-28-2021 Erythrocyte distribution width (RBC) [Ratio] 17.1 % High 11.5-14.5 [facility] Comment on above: Performed By: #### C A19O, LUPUS #### The performing lab is in the report. #### NSEO #### [facility] #### HEMDF, LDH3, BMP3, MG3, PT, CEA2 #### [address] [address] #### B2GPM, B2GPA, B2GPG #### [address] Hematocrit (Bld) [Volume fraction] 33.4 % Low 40.0-52.0 [facility] Comment on above: Performed By: #### C A19O, LUPUS #### The performing lab is in the report. #### NSEO #### [facility] #### HEMDF, LDH3, BMP3, MG3, PT, CEA2 #### [address] [address] #### B2GPM, B2GPA, B2GPG #### [address] Hemoglobin (Bld) [Mass/Vol] 11.0 g/dL Low 13.0-18.0 [facility] Comment on above: Performed By: #### C A19O, LUPUS #### The performing lab is in the report. #### NSEO #### [facility] #### HEMDF, LDH3, BMP3, MG3, PT, CEA2 #### [facility] [address] [place] [address] #### B2GPM, B2GPA, B2GPG #### [address] MCH (RBC) [Entitic mass] 27.8 pg Normal 26.0-34.0 [facility] Comment on above: Performed By: #### C A19O, LUPUS #### The performing lab is in the report. #### NSEO #### [facility] #### HEMDF, LDH3, BMP3, MG3, PT, CEA2 #### [address] [place] [address] #### B2GPM, B2GPA, B2GPG #### [address] MCHC 32.8 % Normal 32.0-36.0 [facility] Comment on above: Performed By: #### C A19O, LUPUS #### The performing lab is in the report. #### NSEO #### [facility] #### HEMDF, LDH3, BMP3, MG3, PT, CEA2 #### [address] [place] [address] #### B2GPM, B2GPA, B2GPG #### [address] MCV (RBC) [Entitic vol] 84.8 fL Normal 80.0-98.0 [facility] Comment on above: Performed By: #### C A19O, LUPUS #### The performing lab is in the report. #### NSEO #### [facility] #### HEMDF, LDH3, BMP3, MG3, PT, CEA2 #### [facility] [address] [place] [address] #### B2GPM, B2GPA, B2GPG #### [address] Platelet mean volume (Bld) [Entitic vol] 8.3 fL Normal 7.4-12.4 [facility] Comment on above: Result Comment: MPV is a calculated measurement using platelet volume ratio. Performed By: #### C A19O, LUPUS #### The performing lab is in the report. #### NSEO #### [facility] #### HEMDF, LDH3, BMP3, MG3, PT, CEA2 #### [place] [address] [place] #### B2GPM, B2GPA, B2GPG #### [address] Platelets (Bld) [#/Vol] 344 10*3/uL Normal 140-440 [facility] Comment on above: Performed By: #### C A19O, LUPUS #### The performing lab is in the report. #### NSEO #### [facility] #### HEMDF, LDH3, BMP3, MG3, PT, CEA2 #### [address] [place] #### B2GPM, B2GPA, B2GPG #### [address] RBC (Bld) [#/Vol] 3.94 10*6/uL Low 4.40-5.90 [facility] Comment on above: Performed By: #### C A19O, LUPUS #### The performing lab is in the report. #### NSEO #### [facility] #### HEMDF, LDH3, BMP3, MG3, PT, CEA2 #### [place] [address] [place] #### B2GPM, B2GPA, B2GPG #### [address] [place] [address] WBC (Bld) [#/Vol] 10.0 10*3/uL Normal 3.6-10.7 [facility] Comment on above: Performed By: #### C A19O, LUPUS #### The performing lab is in the report. #### NSEO #### [facility] #### HEMDF, LDH3, BMP3, MG3, PT, CEA2 #### [facility] [address] [place] [address] #### B2GPM, B2GPA, B2GPG #### [facility] [address] [place] [address] Neuron Specific Enolaseon Neuron Specific Enolase 20.8 Normal [facility] Comment on above: Result Comment: Neur on Specific Enolase, Serum 20.8 ng/mL H (Ref Interval: <=12.7) NSE and Hgb are elevated in the specimen. The elevated NSE may be a result of hemolysis as NSE is expressed in red blood cells. Interpret results with caution. INTERPRETIVE INFORMATION: Neuron Specific Enolase in Serum This assay is performed using the [employer] NSE Kryptor Immunoassay. Results obtained with different assay methods or kits cannot be used interchangeably. Results cannot be interpreted as absolute evidence of the presence or absence of malignant disease. This test was developed and its performance characteristics determined by [employer]. It has not been cleared or approved by the [place] Food and Drug Administration. This test was performed in a CLIA certified laboratory and is intended for clinical purposes. Performed By: #### C OVAG #### [facility] [address] [place] [address] Neuron specific enolase (NSE )on 10-28-2021 Neuron Specific Enolase 20.8 [facility] Work Phone: Comment on above: Neuron Specific Enol ase, Serum 20.8 ng/mL H (Ref Interval: <=12.7) NSE and Hgb are elevated in the specimen. The elevated NSE may be a result of hemolysis as NSE is expressed in red blood cells. Interpret results with caution. INTERPRETIVE INFORMATION: Neuron Specific Enolase in Serum This assay is performed using the [employer] NSE Kryptor Immunoassay. Results obtained with different assay methods or kits cannot be used interchangeably. Results cannot be interpreted as absolute evidence of the presence or absence of malignant disease. This test was developed and its performance characteristics determined by [employer]. It has not been cleared or approved by the [place] Food and Drug Administration. This test was performed in a CLIA certified laboratory and is intended for clinical purposes. 1 [facility] Work Phone: Prothrombin Timeon 2 INR 3.1 High 0.9-1.1 [facility] Comment on above: Result Comment: Harry [...] HEMDF, LDH3, BMP3, MG3, PT, CEA2 #### [facility] [address] [place] [address] #### B2GPM, B2GPA, B2GPG #### [place] [address] [place], [place] PT Coag (PPP) [Time] 30.8 s High 9.0-12.0 [facility] Comment on above: Result Comment: . Performed By: #### C A19O, LUPUS #### The performing lab is in the report. #### NSEO #### [facility] #### HEMDF, LDH3, BMP3, MG3, PT, CEA2 #### [facility] [address] [place] [address] #### B2GPM, B2GPA, B2GPG #### [address] [id number] Protime-INRon 10-28-2021 INR Coag (Bld) [Relative time] 3.1 {INR} High [facility] Work Phone: Comment on above: [...] Interpretation and review of laboratory results Abnormal [facility] Work Phone: PT Coag (PPP) [Time] 30.8 s High 9.0 - 12.0 s [facility] Work Phone: Comment on above: . Test Performed by [facility], [address] LAB [facility] Work Phone: MRI BRAIN WO CONTRASTon 10-06 Patient Name: ANDREW SIFUENTES [facility] ACCESSION EXAM DATE/TIME PROCEDURE ORDERING PROVIDER [id number] 10/27/2021 13:14 EDT MRI Brain w/o Contrast UNASSIGNED, UNASSIGNED CPT code 99662 Reason For Exam (MRI Brain w/o Contrast) stroke Patient has TRIM SETTER HELPER shunt in place, please follow Radiology protocol [...] OSAMA Transcribed Date and Time: 10/27/2021 2:39 [facility] Venus Loyd MD - 10/27/2021 [id number] ACCESSION EXAM DATE/TIME PROCEDURE ORDERING PROVIDER [id number] 10/27/2021 13:14 EDT MRI Brain w/o Contrast UNASSIGNED, UNASSIGNED CPT code 57684 Reason For Exam (MRI Brain w/o Contrast) stroke Patient has TRIM SETTER HELPER shunt in place, please follow Radiology protocol [...] Brain w/o Contrast Patient [facility]: [id number] ACCESSION EXAM DATE/TIME PROCEDURE ORDERING PROVIDER [id number] 10/27/2021 13:14 EDT MRI Brain w/o Contrast UNASSIGNED, UNASSIGNED CPT code 99513 Reason For Exam (MRI Brain w/o Contrast) stroke Patient has TRIM SETTER HELPER shunt in place, please follow Radiology protocol [...] Transcribed Date and Time: 10/27/2021 2:39 Normal [facility] Prothrombin Timeon 2 INR 2.1 High 0.9-1.1 [facility] Comment on above: Result Comment: Harry [...] Infarction Performed By: #### P T #### [facility] [address] [place] [address] PT Coag (PPP) [Time] 21.9 s High 9.0-12.0 [facility] Work Phone: Comment on above: . Result Comment: . Performed By: #### P T #### [facility] [address] [place] [address] Protime-INRon 10-27-2021 INR Coag (Bld) [Relative time] 2.1 {INR} High [facility] Work Phone: Comment on above: [...] Interpretation and review of laboratory results Abnormal [facility] Work Phone: Test Performed by [facility], [address], [place], [place] [address] [facility] Work Phone: CT HEAD WO CONTRASTon 2021 Patient Name: ANDREW SIFUENTES Computed Tomography ACCESSION EXAM DATE/TIME PROCEDURE ORDERING PROVIDER [id number] 10/26/2021 11:[address] Head or Brain w/o JUNIE PINEDA ALLISON Contrast CPT code 63021 Reason For Exam (CT Head or Brain w/o Contrast) hydrocephalus. thank you Report CLINICAL INFORMATION: Hydrocephalus. Shunt. 3 mm axial cuts through the head are obtained without IV contrast. The examination is compared to a previous study dated 06/29/2014. FINDINGS: Old TRIM SETTER HELPER shunt tubing is noted bilaterally. The new [...] are clear. IMPRESSION: 1. Old and new TRIM SETTER HELPER shunt tubing. 2. No hydrocephalus. 3. Atrophy [...] Tomography ACCESSION EXAM DATE/TIME PROCEDURE ORDERING PROVIDER [id number] 10/26/2021 11:[address] Head or Brain w/o JUNIE PINEDA, SARINA Contrast CPT code 45275 Reason For Exam (CT Head or Brain w/o Contrast) hydrocephalus. thank you Report CLINICAL INFORMATION: Hydrocephalus. Shunt. 3 mm axial cuts through the head are obtained without IV contrast. The examination is compared to a previous study dated 06/29/2014. FINDINGS: Old TRIM SETTER HELPER shunt tubing is noted bilaterally. The new [...] are clear. IMPRESSION: 1. Old and new TRIM SETTER HELPER shunt tubing. 2. No hydrocephalus. 3. Atrophy [...] Tomography ACCESSION EXAM DATE/TIME PROCEDURE ORDERING PROVIDER [id number] 10/26/2021 11:[address] Head or Brain w/o JUNEI PINEDA, SARINA Contrast CPT code 42885 Reason For Exam (CT Head or Brain w/o Contrast) hydrocephalus. thank you Report CLINICAL INFORMATION: Hydrocephalus. Shunt. 3 mm axial cuts through the head are obtained without IV contrast. The examination is compared to a previous study dated 06/29/2014. FINDINGS: Old TRIM SETTER HELPER shunt tubing is noted bilaterally. The new [...] are clear. IMPRESSION: 1. Old and new TRIM SETTER HELPER shunt tubing. 2. No hydrocephalus. 3. Atrophy and evidence of small-vessel ischemic disease. 4. No CT evidence of an acute intracranial process. Report Dictated on Final Dictating Physician: MD SOLANO JEFFREY Signed Date and Time: 10/26/2021 11:42 am Signed by: MD XIOMARA, ALBERT Transcribed Date and Time: 10/26/2021 11:43 Normal [facility] EEG awake and asleepon 10-26 Bony Tompkins MD 10/26/2021 4:06 PM [facility] [address] [facility] [place] [address] ROUTINE EEG REPORT Patient Name: Andrew Sifuentes : 1950 Date of Study: 10/26/2021 Duration Recorded: 23 minutes EEG#: [id number] CALENDERING SUPERVISOR: CASTRO PROVIDER REQUESTING STUDY: Dr. Barreto REASON FOR EXAM: seizures HISTORY: Andrew Sifuentes is a 71 y.o. male with history of obstructive hydrocephalus s/p TRIM SETTER HELPER shunt in 1987, needing multiple revisions and [...] normal limits and both old and new TRIM SETTER HELPER shunt tubing noted. At present patient is awake, follows commands, was able to tell his name, and that he was in hospital but not oriented to time. Per documentation patient had NCSE in May 2021, was on Vimpat, but it was discontinued as there was no evidence of recurrent seizures in July 2021 by Neurology at [facility], per daughter patient was on Dilantin [...] were positioned in person by an senior nuclear medicine technologist, following patient education, according to the 10-20 International system of electrode placement and maintained for integrity and quality of the recording. EEG data with video was recorded continuously and digitally stored. The senior nuclear medicine technologist reviewed all automated detections and [...] No normal vari (more content not included)... [facility] Work Phone: [facility] Work Phone: No Panel Informationon 10-26 Radiology Study observation (narrative) [employer] Phone: Prothrombin Timeon 2 INR 1.9 High 0.9-1.1 [facility] Comment on above: Result Comment: Harry mmended [...] Infarction Performed By: #### C OVAG #### [facility] [address] [place] [address] PT Coag (PPP) [Time] 19.7 s High 9.0-12.0 [facility] Comment on above: Result Comment: . Performed By: #### C OVAG #### [facility] [address] [place] [address] Protime-INRon 10-26-2021 INR Coag (Bld) [Relative time] [...] Interpretation and review of laboratory results Abnormal [facility] Work Phone: PT Coag (PPP) [Time] 19.7 s High 9.0 - 12.0 s [facility] Work Phone: Comment on above: . Test Performed by [facility], [address] [place], [place] [address] [facility] Work Phone: CA 19-9on 10-25-2021 CA 19-9 17 U/mL Normal <=35 [facility] Work Phone: Comment on above: [...] or absence of malignant disease. Performed By: [place] [address] Corporate Claims Examiner: Quinaa Castro MD Result Comment: INTE RPRETIVE INFORMATION: [...] or absence of malignant disease. Performed By: [place] [address] Corporate Claims Examiner: Quiana Castro MD Performed By: #### C OVAG #### [facility] [address] [place] [address] Cancer Antigen 19-9on 2021 [facility] Work Phone: Prothrombin Timeon 2 INR 1.5 High 0.9-1.1 [facility] Comment on above: Result Comment: Harry [...] Infarction Performed By: #### P T #### [facility] [address] [facility] [place] [address] PT Coag (PPP) [Time] 15.6 s High 9.0-12.0 [facility] Comment on above: Result Comment: . Performed By: #### P T #### [facility] [address] [place] [address] Protime-INRon 10-25-2021 INR Coag (Bld) [Relative time] 1.5 {INR} High [facility] Work Phone: Comment on above: [...] Interpretation and review of laboratory results Abnormal [facility] Work Phone: PT Coag (PPP) [Time] 15.6 s High 9.0 - 12.0 s [facility] Work Phone: Comment on above: . Test Performed by [facility], [address] [place], [place] [address] [facility] Work Phone: B-2 Glycoprotein [...] HEMDF, LDH3, BMP3, MG3, PT, CEA2 #### [facility] [address] [place] [address] #### B2GPM, B2GPA, B2GPG #### [facility] [address] [place] [address] Calcium [Mass/Vol] 8.8 mg/dL Normal 8.4-10.4 [facility] Comment on above: Performed By: #### C A19O, LUPUS #### The performing lab is in the report. #### NSEO #### [facility] #### HEMDF, LDH3, BMP3, MG3, PT, CEA2 #### [facility] [address] [place] [address] #### B2GPM, B2GPA, B2GPG #### [address] CO2 [Moles/Vol] 25 mmol/L Normal 22-30 [facility] Comment on above: Performed By: #### C A19O, LUPUS #### The performing lab is in the report. #### NSEO #### [facility] #### HEMDF, LDH3, BMP3, MG3, PT, CEA2 #### [facility] [address] [place] [address] #### B2GPM, B2GPA, B2GPG #### [address] Creatinine [Mass/Vol] 0.74 mg/dL Normal 0.52-1.25 [facility] Comment on above: Performed By: #### C A19O, LUPUS #### The performing lab is in the report. #### NSEO #### [facility] #### HEMDF, LDH3, BMP3, MG3, PT, CEA2 #### [facility] [address] [place] [address] #### B2GPM, B2GPA, B2GPG #### [address] eGFR OTHER > 90.0 Normal >60 [facility] Comment on above: Result Comment: KDIG [...] HEMDF, LDH3, BMP3, MG3, PT, CEA2 #### [facility] [address] [place] [address] #### B2GPM, B2GPA, B2GPG #### [address] GFR/1.73 sq M.predicted among blacks MDRD (S/P/Bld) [Vol rate/Area] mL/min/{1.73_m2} Normal >60 [facility] Comment on above: Performed By: #### C A19O, LUPUS #### The performing lab is in the report. #### NSEO #### [facility] #### HEMDF, LDH3, BMP3, MG3, PT, CEA2 #### [address] [place] [address] #### B2GPM, B2GPA, B2GPG #### [address] Glucose [Mass/Vol] 116 mg/dL High 70-100 [facility] Comment on above: Performed By: #### C A19O, LUPUS #### The performing lab is in the report. #### NSEO #### [facility] #### HEMDF, LDH3, BMP3, MG3, PT, CEA2 #### [address] [place] [address] #### B2GPM, B2GPA, B2GPG #### [address] Urea nitrogen [Mass/Vol] 19 mg/dL High 7-17 [facility] Comment on above: Performed By: #### C A19O, LUPUS #### The performing lab is in the report. #### NSEO #### [facility] #### HEMDF, LDH3, BMP3, MG3, PT, CEA2 #### [facility] [address] [place] [address] #### B2GPM, B2GPA, B2GPG #### [address] Chloride [Moles/Vol] 107 mmol/L Normal 98-107 [facility] Comment on above: Performed By: #### C A19O, LUPUS #### The performing lab is in the report. #### NSEO #### [facility] #### HEMDF, LDH3, BMP3, MG3, PT, CEA2 #### [place] [address] [place] [address] #### B2GPM, B2GPA, B2GPG #### [address] Potassium [Moles/Vol] 3.9 mmol/L Normal 3.5-5.1 [facility] Comment on above: Performed By: #### C A19O, LUPUS #### The performing lab is in the report. #### NSEO #### [facility] #### HEMDF, LDH3, BMP3, MG3, PT, CEA2 #### [place] [address] [place] [address] #### B2GPM, B2GPA, B2GPG #### [address] Sodium [Moles/Vol] 140 mmol/L Normal 135-145 [facility] Comment on above: Performed By: #### C A19O, LUPUS #### The performing lab is in the report. #### NSEO #### [facility] #### HEMDF, LDH3, BMP3, MG3, PT, CEA2 #### [place] [address] [place] [address] #### B2GPM, B2GPA, B2GPG #### [address] Anion gap [Moles/Vol] 8 mmol/L 3 - 13 mmol/L [facility] Calcium [Mass/Vol] 8.8 mg/dL 8.4 - 10. 4 mg/dL [facility] Chloride [Moles/Vol] 107 mmol/L 98 - 10 7 mmol/L [facility] CO2 [Moles/Vol] 25 mmol/L 22 - 30 mmol/L [facility] Creatinine [Mass/Vol] 0.74 mg/dL 0.52 - 1.25 mg/dL [facility] EGFR IF NonAfrican Somali >90.0 >60 mL/min [facility] Comment on above: KDIGO guidelines [...] 116 mg/dL High 70 - 100 mg/dL [facility] Interpretation and review of laboratory results Abnormal [facility] Potassium [Moles/Vol] 3.9 mmol/L 3.5 - 5.1 mmol/L [facility] Sodium [Moles/Vol] 140 mmol/L 135 - 145 mmol/L [facility] Urea nitrogen (BldV) [Mass/Vol] 19 mg/dL High 7 - 17 mg/dL [facility] Test Performed by [facility], [address] [place], [place] [address] [facility] Beta-2 Glycoprotein I IgAon 10-24-2021 Beta-2 Glycoprotein I IgA < 2.0 Normal [facility] Comment on above: Result Comment: Inte rpretive Information: Results equal to or greater than 20 U/mL = POSITIVE Results less than 20 U/mL = NEGATIVE Performed By: #### C OVAG #### [facility] [address] [place] [address] Beta-2 Glycoprotein I IgGon 10-24-2021 Beta-2 Glycoprotein I IgG < 1.4 Normal [facility] Comment on above: Result Comment: Inte rpretive Information: Results equal to or greater than 20 U/mL = POSITIVE Results less than 20 U/mL = NEGATIVE Performed By: #### C OVAG #### [facility] [address] [place] [address] Beta-2 Glycoprotein I IgMon 10-24-2021 Beta-2 Glycoprotein I IgM < 1.5 Normal [facility] Comment on above: Result Comment: Inte rpretive Information: Results equal to or greater than 20 U/mL = POSITIVE Results less than 20 U/mL = NEGATIVE Performed By: #### C OVAG #### [facility] [address] [place] [address] No Panel Informationon 10-24 [facility] Test Performed by [facility], [address] [place] [address] [facility] Work Phone: PROTEIN C FUNCTIONALon 10-24 Interpretation and review of laboratory results Abnormal [facility] Protein C-Functional 185 % High 83 [...] reference intervals for this test in the [facility] ([employer]). Performed by [facility], [address] [place] [address] [email or web address], Quiana Castro MD - Lab. Director Protein C, Functionalon 10-06 Protein C, Functional 185 % High 83-168 [facility] Comment on above: Result Comment: INTE [...] reference intervals for this test in the [facility] ([employer]). Performed by [facility], [address] [place] [address] [email or web address], Quiana Castro MD - Lab. Director Performed By: #### P T #### ASCENDANT MDX [facility] [address] [place] [place] [address] Protein S, Functionalon 10-06 Protein S, Functional [...] reference intervals for this test in the [facility] ([employer]). Performed by [facility], [address] [facility] [address] [email or web address], Quiana Castro MD - Lab. Director Result [...] reference intervals for this test in the [facility] ([employer]). Performed by [facility], [address] [facility] [place] [address] [email or web address], Quiana Castro MD - Lab. Director Performed By: #### P T #### [facility] [address] [place] [address] Prothrombin Timeon INR 1.2 High 0.9-1.1 [facility] Comment on above: Result Comment: Harry [...] HEMDF, LDH3, BMP3, MG3, PT, CEA2 #### [facility] [address] [place] [address] #### B2GPM, B2GPA, B2GPG #### [address] [phone] PT Coag (PPP) [Time] 12.6 s High 9.0-12.0 [facility] Comment on above: Result Comment: . Performed By: #### C A19O, LUPUS #### The performing lab is in the report. #### NSEO #### [facility] #### HEMDF, LDH3, BMP3, MG3, PT, CEA2 #### [facility] [address] [place] [address] #### B2GPM, B2GPA, B2GPG #### [address] [phone] Protime-INRon 10-24-2021 INR Coag (Bld) [Relative time] 1.2 {INR} High [facility] Comment on above: Recommended Anticoag [...] Interpretation and review of laboratory results Abnormal [facility] PT Coag (PPP) [Time] 12.6 s High 9.0 - 12.0 s [facility] Comment on above: . Test Performed by [facility], [address] [place], [place] [address] [facility] Basic Metabolic Panelon - Anion gap [Moles/Vol] 10 mmol/L Normal 3-13 [facility] Comment on above: Performed By: #### C A19O, LUPUS #### The performing lab is in the report. #### NSEO #### [facility] #### HEMDF, LDH3, BMP3, MG3, PT, CEA2 #### [facility] [address] [place] [address] #### B2GPM, B2GPA, B2GPG #### [address] [address] Calcium [Mass/Vol] 9.6 mg/dL Normal 8.4-10.4 [facility] Comment on above: Performed By: #### C A19O, LUPUS #### The performing lab is in the report. #### NSEO #### [facility] #### HEMDF, LDH3, BMP3, MG3, PT, CEA2 #### [facility] [address] [place] [address] #### B2GPM, B2GPA, B2GPG #### [address] [address] CO2 [Moles/Vol] 27 mmol/L Normal 22-30 [facility] Comment on above: Performed By: #### C A19O, LUPUS #### The performing lab is in the report. #### NSEO #### [facility] #### HEMDF, LDH3, BMP3, MG3, PT, CEA2 #### [facility] [address] [place] [address] #### B2GPM, B2GPA, B2GPG #### [address] Glucose [Mass/Vol] 109 mg/dL High 70-100 [facility] Comment on above: Performed By: #### C A19O, LUPUS #### The performing lab is in the report. #### NSEO #### [facility] #### HEMDF, LDH3, BMP3, MG3, PT, CEA2 #### [address] [place] [address] #### B2GPM, B2GPA, B2GPG #### [address] Urea nitrogen [Mass/Vol] 18 mg/dL High 7-17 [facility] Comment on above: Performed By: #### C A19O, LUPUS #### The performing lab is in the report. #### NSEO #### [facility] #### HEMDF, LDH3, BMP3, MG3, PT, CEA2 #### [address] [place], [place] #### B2GPM, B2GPA, B2GPG #### [address] Creatinine [Mass/Vol] 0.82 mg/dL Normal 0.52-1.25 [facility] Comment on above: Performed By: #### C A19O, LUPUS #### The performing lab is in the report. #### NSEO #### [facility] #### HEMDF, LDH3, BMP3, MG3, PT, CEA2 #### [address] [place], [place] #### B2GPM, B2GPA, B2GPG #### [address] GFR/1.73 sq M.predicted among blacks MDRD (S/P/Bld) [Vol rate/Area] mL/min/{1.73_m2} Normal >60 [facility] Comment on above: Performed By: #### C A19O, LUPUS #### The performing lab is in the report. #### NSEO #### [facility] #### HEMDF, LDH3, BMP3, MG3, PT, CEA2 #### [facility] [address] [place] [address] #### B2GPM, B2GPA, B2GPG #### [facility] [address] [place] [address] GFR/1.73 sq M.predicted among non-blacks MDRD (S/P/Bld) [Vol rate/Area] 89.9 mL/min/{1.73_m2} Normal >60 [facility] Comment on above: Result Comment: KDIG [...] HEMDF, LDH3, BMP3, MG3, PT, CEA2 #### [facility] [address] [place] [address] #### B2GPM, B2GPA, B2GPG #### [facility] [address], [place] Chloride [Moles/Vol] 104 mmol/L Normal 98-107 [facility] Comment on above: Performed By: #### C A19O, LUPUS #### The performing lab is in the report. #### NSEO #### [facility] #### HEMDF, LDH3, BMP3, MG3, PT, CEA2 #### [place] [address] [place] [address] #### B2GPM, B2GPA, B2GPG #### [address] Potassium [Moles/Vol] 3.9 mmol/L Normal 3.5-5.1 [facility] Comment on above: Performed By: #### C A19O, LUPUS #### The performing lab is in the report. #### NSEO #### [facility] #### HEMDF, LDH3, BMP3, MG3, PT, CEA2 #### [place] [address] [place] [address] #### B2GPM, B2GPA, B2GPG #### [address] Sodium [Moles/Vol] 142 mmol/L Normal 135-145 [facility] Comment on above: Performed By: #### C A19O, LUPUS #### The performing lab is in the report. #### NSEO #### [facility] #### HEMDF, LDH3, BMP3, MG3, PT, CEA2 #### [address] [place] [address] #### B2GPM, B2GPA, B2GPG #### [address] Anion gap [Moles/Vol] 10 mmol/L 3 - 13 mmol/L [facility] Work Phone: [phone] Calcium [Mass/Vol] 9.6 mg/dL 8.4 - 10. 4 mg/dL [facility] Work Phone: [phone] Chloride [Moles/Vol] 104 mmol/L 98 - 10 7 mmol/L [facility] Work Phone: [phone] CO2 [Moles/Vol] 27 mmol/L 22 - 30 mmol/L [facility] Work Phone: [phone] Creatinine [Mass/Vol] 0.82 mg/dL 0.52 - 1.25 mg/dL [facility] Work Phone: [phone] EGFR IF NonAfrican Somali 89.9 mL/min >60 [facility] Work Phone: [phone] Comment on above: KDIGO guidelines pro [...] [Vol rate/Area] mL/min/{1.73_m2} >60 mL/min [facility] Work Phone: [phone] Glucose [Mass/Vol] 109 mg/dL High 70 - 100 mg/dL [facility] Work Phone: [phone] Interpretation and review of laboratory results Abnormal [facility] Work Phone: [phone] Potassium [Moles/Vol] 3.9 mmol/L 3.5 - 5.1 mmol/L [facility] Work Phone: [phone] Sodium [Moles/Vol] 142 mmol/L 135 - 145 mmol/L [facility] Work Phone: [phone] Urea nitrogen (BldV) [Mass/Vol] 18 mg/dL High 7 - 17 mg/dL [facility] Work Phone: [phone] CBC with Auto Differentialon 10-23-2021 Absolute Baso # 0.1 10*3/uL 0.0 - 0.2 10*3/uL [facility] Work Phone: Absolute Neut # 6.6 10*3/uL 1.8 - 7.0 10*3/uL [facility] Work Phone: [phone] Basophils/100 WBC (Bld) 1.1 % 0.0 - 2.0 % [facility] Work Phone: [phone] Eosinophils (Bld) [#/Vol] 0.4 10*3/uL 0.0 - 0.5 10*3/uL [facility] Work Phone: [phone] Eosinophils/100 WBC (Bld) 3.9 % 1.0 - 6.0 % [facility] Work Phone: [phone]() 222 Granulocytes/100 WBC (Bld) 64.0 % 40.0 - 80.0 % [facility] Work Phone: ) 222 Hematocrit (Bld) [Volume fraction] 35.1 % Low 40.0 - 52.0 % [facility] Work Phone: [phone] 222 Hemoglobin (Bld) [Mass/Vol] 11.6 g/dL Low 13.0 - 18.0 g/dL [facility] Work Phone: [phone] Interpretation and review of laboratory results Abnormal [facility] Work Phone: [phone] Lymphocytes (Bld) [#/Vol] 2.6 10*3/uL 1.0 - 4.3 10*3/uL [facility] Work Phone: [phone] 222 Lymphocytes/100 WBC (Bld) 25.0 % 20.0 - 40.0 % [facility] Work Phone: [phone] 222 MCH (RBC) [Entitic mass] 28.4 pg 26.0 - 34.0 pg [facility] Work Phone: [phone] 222 MCHC (RBC) [Mass/Vol] 33.1 % 32.0 - 36.0 % [facility] Work Phone: [phone] MCV (RBC) [Entitic vol] 85.9 fL 80.0 - 98.0 fL [facility] Work Phone: [phone] 222 Monocytes (Bld) [#/Vol] 0.6 10*3/uL 0.0 - 0.8 10*3/uL [facility] Work Phone: [phone] Monocytes/100 WBC (Bld) 6.0 % 2.0 - 10.0 % [facility] Work Phone: [phone] Platelet distribution width (Bld) [Ratio] 17.4 % High 11.5 - 14.5 % [facility] Work Phone: [phone] Platelet mean volume (Bld) [Entitic vol] 8.1 fL 7.4 - 12.4 fL [facility] Work Phone: [phone] Comment on above: MPV is a calculated measurement using platelet volume ratio. Platelets (Bld) [#/Vol] 450 10*3/uL High 140 - 440 10*3/uL [facility] Work Phone: [phone] RBC (Bld) [#/Vol] 4.08 10*6/uL Low 4.40 - 5.9 0 10*6/uL [facility] Work Phone: [phone] WBC (Bld) [#/Vol] 10.3 10*3/uL 3.6 - 10.7 10*3/uL [facility] Work Phone: [phone] Test Performed by [facility], [address], [place] [id number] [place] [address] LAB [facility] Work Phone: [phone] CEAon 10-23-2021 CEA 0.8 ng/mL 0.0 - 3.0 ng/mL [facility] Work Phone: [phone] Test Performed by [facility], [address], [place] [id number] [place] [address] LAB [facility] Work Phone: [phone] Carcinoembryonic Agon 2021 Carcinoembryonic Ag. 0.8 ng/mL Normal 0.0-3.0 [facility] Comment on above: Performed By: #### C A19O, LUPUS #### The performing lab is in the report. #### NSEO #### [facility] #### HEMDF, LDH3, BMP3, MG3, PT, CEA2 #### [facility] [address] [place] [address] #### B2GPM, B2GPA, B2GPG #### [address] Hemogram w/ Autodiffon 10-23 Abs Baso Cnt 0.1 10*3/uL Normal 0.0-0.2 [facility] Comment on above: Performed By: #### C A19O, LUPUS #### The performing lab is in the report. #### NSEO #### [facility] #### HEMDF, LDH3, BMP3, MG3, PT, CEA2 #### [facility] [address] [place], [place] #### B2GPM, B2GPA, B2GPG #### [address] Abs Neutrophile Cnt 6.6 10*3/uL Normal 1.8-7.0 [facility] Comment on above: Performed By: #### C A19O, LUPUS #### The performing lab is in the report. #### NSEO #### [facility] #### HEMDF, LDH3, BMP3, MG3, PT, CEA2 #### [facility] [address] [place], [place] #### B2GPM, B2GPA, B2GPG #### [address] Basophils/100 WBC (Bld) 1.1 % Normal 0.0-2.0 [facility] Comment on above: Performed By: #### C A19O, LUPUS #### The performing lab is in the report. #### NSEO #### [facility] #### HEMDF, LDH3, BMP3, MG3, PT, CEA2 #### [facility] [address] [place], [place] #### B2GPM, B2GPA, B2GPG #### [address] Eosinophils (Bld) [#/Vol] 0.4 10*3/uL Normal 0.0-0.5 [facility] Comment on above: Performed By: #### C A19O, LUPUS #### The performing lab is in the report. #### NSEO #### [facility] #### HEMDF, LDH3, BMP3, MG3, PT, CEA2 #### [facility] [address] [place] [address] #### B2GPM, B2GPA, B2GPG #### [address] [phone] Eosinophils/100 WBC (Bld) 3.9 % Normal 1.0-6.0 [facility] Comment on above: Performed By: #### C A19O, LUPUS #### The performing lab is in the report. #### NSEO #### [facility] #### HEMDF, LDH3, BMP3, MG3, PT, CEA2 #### [address] [place], [place] #### B2GPM, B2GPA, B2GPG #### [address] [phone] Erythrocyte distribution width (RBC) [Ratio] 17.4 % High 11.5-14.5 [facility] Comment on above: Performed By: #### C A19O, LUPUS #### The performing lab is in the report. #### NSEO #### [facility] #### HEMDF, LDH3, BMP3, MG3, PT, CEA2 #### [address] [place] [address] #### B2GPM, B2GPA, B2GPG #### [address] [phone] Granulocytes/100 WBC (Bld) 64.0 % Normal 40.0-80.0 [facility] Comment on above: Performed By: #### C A19O, LUPUS #### The performing lab is in the report. #### NSEO #### [facility] #### HEMDF, LDH3, BMP3, MG3, PT, CEA2 #### [place] [address] [place], [place] #### B2GPM, B2GPA, B2GPG #### [address] Hematocrit (Bld) [Volume fraction] 35.1 % Low 40.0-52.0 [facility] Comment on above: Performed By: #### C A19O, LUPUS #### The performing lab is in the report. #### NSEO #### [facility] #### HEMDF, LDH3, BMP3, MG3, PT, CEA2 #### [facility] [address] [place], [place] #### B2GPM, B2GPA, B2GPG #### [address] Hemoglobin (Bld) [Mass/Vol] 11.6 g/dL Low 13.0-18.0 [facility] Comment on above: Performed By: #### C A19O, LUPUS #### The performing lab is in the report. #### NSEO #### [facility] #### HEMDF, LDH3, BMP3, MG3, PT, CEA2 #### [facility] [address] [place] #### B2GPM, B2GPA, B2GPG #### [address] Lymphocytes (Bld) [#/Vol] 2.6 10*3/uL Normal 1.0-4.3 [facility] Comment on above: Performed By: #### C A19O, LUPUS #### The performing lab is in the report. #### NSEO #### [facility] #### HEMDF, LDH3, BMP3, MG3, PT, CEA2 #### [facility] [address] [place] #### B2GPM, B2GPA, B2GPG #### [address] Lymphocytes/100 WBC (Bld) 25.0 % Normal 20.0-40.0 [facility] Comment on above: Performed By: #### C A19O, LUPUS #### The performing lab is in the report. #### NSEO #### [facility] #### HEMDF, LDH3, BMP3, MG3, PT, CEA2 #### [facility] [address] [facility] [place] [address] #### B2GPM, B2GPA, B2GPG #### [address] MCH (RBC) [Entitic mass] 28.4 pg Normal 26.0-34.0 [facility] Comment on above: Performed By: #### C A19O, LUPUS #### The performing lab is in the report. #### NSEO #### [facility] #### HEMDF, LDH3, BMP3, MG3, PT, CEA2 #### [address] [place], [place] #### B2GPM, B2GPA, B2GPG #### [address] MCHC 33.1 % Normal 32.0-36.0 [facility] Comment on above: Performed By: #### C A19O, LUPUS #### The performing lab is in the report. #### NSEO #### [facility] #### HEMDF, LDH3, BMP3, MG3, PT, CEA2 #### [facility] [address] [place], [place] #### B2GPM, B2GPA, B2GPG #### [address] MCV (RBC) [Entitic vol] 85.9 fL Normal 80.0-98.0 [facility] Comment on above: Performed By: #### C A19O, LUPUS #### The performing lab is in the report. #### NSEO #### [facility] #### HEMDF, LDH3, BMP3, MG3, PT, CEA2 #### [facility] [address] [place] #### B2GPM, B2GPA, B2GPG #### [address] Monocytes (Bld) [#/Vol] 0.6 10*3/uL Normal 0.0-0.8 [facility] Comment on above: Performed By: #### C A19O, LUPUS #### The performing lab is in the report. #### NSEO #### [facility] #### HEMDF, LDH3, BMP3, MG3, PT, CEA2 #### [facility] [address] [place] #### B2GPM, B2GPA, B2GPG #### [address] Monocytes/100 WBC (Bld) 6.0 % Normal 2.0-10.0 [facility] Comment on above: Performed By: #### C A19O, LUPUS #### The performing lab is in the report. #### NSEO #### [facility] #### HEMDF, LDH3, BMP3, MG3, PT, CEA2 #### [facility] [address] [place] #### B2GPM, B2GPA, B2GPG #### [address] Platelet mean volume (Bld) [Entitic vol] 8.1 fL Normal 7.4-12.4 [facility] Comment on above: Result Comment: MPV is a calculated measurement using platelet volume ratio. Performed By: #### C A19O, LUPUS #### The performing lab is in the report. #### NSEO #### [facility] #### HEMDF, LDH3, BMP3, MG3, PT, CEA2 #### [facility] [address] [place] #### B2GPM, B2GPA, B2GPG #### [address] Platelets (Bld) [#/Vol] 450 10*3/uL High 140-440 [facility] Comment on above: Performed By: #### C A19O, LUPUS #### The performing lab is in the report. #### NSEO #### [facility] #### HEMDF, LDH3, BMP3, MG3, PT, CEA2 #### [facility] [address] [place] [address] #### B2GPM, B2GPA, B2GPG #### [address] RBC (Bld) [#/Vol] 4.08 10*6/uL Low 4.40-5.90 [facility] Comment on above: Performed By: #### C A19O, LUPUS #### The performing lab is in the report. #### NSEO #### [facility] #### HEMDF, LDH3, BMP3, MG3, PT, CEA2 #### [facility] [address] [place] [address] #### B2GPM, B2GPA, B2GPG #### [address] WBC (Bld) [#/Vol] 10.3 10*3/uL Normal 3.6-10.7 [facility] Comment on above: Performed By: #### C A19O, LUPUS #### The performing lab is in the report. #### NSEO #### [facility] #### HEMDF, LDH3, BMP3, MG3, PT, CEA2 #### [facility] [address] [place] [address] #### B2GPM, B2GPA, B2GPG #### [address] LDHon 10-23-2021 LDH 136 U/L Normal 120-246 [facility] Comment on above: Performed By: #### C A19O, LUPUS #### The performing lab is in the report. #### NSEO #### [facility] #### HEMDF, LDH3, BMP3, MG3, PT, CEA2 #### [facility] [address] [place] [address] #### B2GPM, B2GPA, B2GPG #### [facility] [address] [place] [address] Lactate Dehydrogenaseon 06- LD 136 U/L 120 - 246 U/L [facility] Work Phone: MRI ABDOMEN WO CONTRASTon Patient Name: ANDREW SIFUENTES Magnetic Resonance Imaging ACCESSION EXAM DATE/TIME PROCEDURE ORDERING PROVIDER [id number] 10/23/2021 11:08 EDT MRI Abdomen w/o Contrast WING SRIVASTAVA CPT code 16697 Reason For Exam (MRI Abdomen w/o Contrast) [...] Imaging ACCESSION EXAM DATE/TIME PROCEDURE ORDERING PROVIDER [id number] 10/23/2021 11:08 EDT MRI Abdomen w/o Contrast WING SRIVASTAVA CPT code 39440 Reason For Exam (MRI Abdomen w/o Contrast) [...] VLADIMIR Transcribed Date and Time: 10/23/2021 4:36 [facility] Work Phone: MRI ABDOMEN WO CONTRASTOrder ed By: Unknown Result on 10-23-2021 [facility] MRI Abdomen w/o Contraston 0 10-23-2021 MRI Abdomen w/o Contrast Patient Name: ANDREW SIFUENTES Magnetic Resonance Imaging ACCESSION EXAM DATE/TIME PROCEDURE ORDERING PROVIDER [id number] 10/23/2021 11:08 EDT MRI Abdomen w/o Contrast WING SRIVASTAVA CPT code 86117 Reason For Exam (MRI Abdomen w/o Contrast) [...] Transcribed Date and Time: 10/23/2021 4:36 Normal [facility] Magnesiumon 10-23-2021 Magnesium [Mass/Vol] 2.1 mg/dL Normal 1.6-2.3 [facility] Comment on above: Performed By: #### C A19O, LUPUS #### The performing lab is in the report. #### NSEO #### [facility] #### HEMDF, LDH3, BMP3, MG3, PT, CEA2 #### [facility] [address] [place] [address] #### B2GPM, B2GPA, B2GPG #### [facility] [address] [place] [address] Magnesium [Mass/Vol] 2.1 mg/dL 1.6 - 2 .3 mg/dL [facility] Work Phone: No Panel Informationon 10-23 Test Performed by [facility], [address] [place], [place] [id number] [place] [address] LAB [facility] Work Phone: Prothrombin Timeon 2 INR 1.1 Normal 0.9-1.1 [facility] Comment on above: Result Comment: Harry [...] LDH3, BMP3, MG3, PT, CEA2 #### [address] [place] [address] #### B2GPM, B2GPA, B2GPG #### [address] [address] PT Coag (PPP) [Time] 12.2 s High 9.0-12.0 [facility] Comment on above: Result Comment: . Performed By: #### C A19O, LUPUS #### The performing lab is in the report. #### NSEO #### [facility] #### HEMDF, LDH3, BMP3, MG3, PT, CEA2 #### [address] [place] [address] #### B2GPM, B2GPA, B2GPG #### [address] [address] Protime-INRon 10-23-2021 INR Coag (Bld) [Relative time] 1.1 {INR} [facility] Work Phone: Comment on above: Recommended [...] 12.2 s High 9.0 - 12.0 s [facility] Work Phone: Comment on above: . Test Performed by [facility], [address] [place] [address] [facility] LAB [facility] Work Phone: Basic Metabolic Panelon 10-05 Calcium [Mass/Vol] 8.9 mg/dL Normal 8.4-10.4 [facility] Comment on above: Performed By: #### P T #### [facility] [address] [place] [address] Glucose [Mass/Vol] 110 mg/dL High 70-100 [facility] Comment on above: Performed By: #### P T #### [facility] [address] [place] [address] Urea nitrogen [Mass/Vol] 14 mg/dL Normal 7-17 [facility] Comment on above: Performed By: #### P T #### [facility] [address] [place] [address] Anion gap [Moles/Vol] 7 mmol/L Normal 3-13 [facility] Comment on above: Performed By: #### P T #### [facility] [address] [place] [address] CO2 [Moles/Vol] 26 mmol/L Normal 22-30 [facility] Comment on above: Performed By: #### P T #### [facility] [address] [place] [address] Creatinine [Mass/Vol] 0.71 mg/dL Normal 0.52-1.25 [facility] Comment on above: Performed By: #### P T #### [facility] [address] [place] [address] eGFR OTHER > 90.0 Normal >60 [facility] Comment on above: Result Comment: KDIG [...] secretion. Performed By: #### P T #### [facility] [address] [place] [address] GFR/1.73 sq M.predicted among blacks MDRD (S/P/Bld) [Vol rate/Area] mL/min/{1.73_m2} Normal >60 [facility] Comment on above: Performed By: #### P T #### [facility] [address] [place] [address] Potassium [Moles/Vol] 3.8 mmol/L Normal 3.5-5.1 [facility] Comment on above: Performed By: #### P T #### [facility] [address] [place] [address] Chloride [Moles/Vol] 106 mmol/L Normal 98-107 [facility] Comment on above: Performed By: #### P T #### [facility] [address] [place] [address] Sodium [Moles/Vol] 139 mmol/L Normal 135-145 [facility] Comment on above: Performed By: #### P T #### [facility] [address] [place] [address] Anion gap [Moles/Vol] 7 mmol/L 3 - 13 mmol/L [facility] Calcium [Mass/Vol] 8.9 mg/dL 8.4 - 10. 4 mg/dL [facility] Chloride [Moles/Vol] 106 mmol/L 98 - 10 7 mmol/L [facility] CO2 [Moles/Vol] 26 mmol/L 22 - 30 mmol/L [facility] Creatinine [Mass/Vol] 0.71 mg/dL 0.52 - 1.25 mg/dL [facility] EGFR IF NonAfrican Somali >90.0 >60 mL/min [facility] Comment on above: KDIGO guidelines [...] [facility], [address] [place], [place] [id number] [place] [address] [facility] [address] Abdomen Pelvis Wo Contras ton 10-22-2021 Patient Name: ANDREW SIFUENTES Computed Tomography ACCESSION EXAM DATE/TIME PROCEDURE ORDERING PROVIDER [id number] 10/22/2021 13:[address] Abdomen/Pelvis (No SRIVASTAVA, WING PO, No IV) CPT code 77408 Reason For Exam (CT Abdomen/Pelvis (No PO, [...] HARLAN Transcribed Date and Time: 10/22/2021 2:37 [facility] Humphrey Melton MD - 10/22/2021 Patient Name: ANDREW SIFUENTES Computed Tomography ACCESSION EXAM DATE/TIME PROCEDURE ORDERING PROVIDER [id number] 10/22/2021 13:[address] Abdomen/Pelvis (No SRIVASTAVA, WING PO, No IV) CPT code 88919 Reason For Exam (CT Abdomen/Pelvis (No PO, [...] Tomography ACCESSION EXAM DATE/TIME PROCEDURE ORDERING PROVIDER [id number] 10/22/2021 13:[address] Abdomen/Pelvis (No SRIVASTAVA, WING PO, No IV) CPT code 49860 Reason For Exam (CT Abdomen/Pelvis (No PO, [...] Transcribed Date and Time: 10/22/2021 2:37 Normal [facility] Hemogram w/ Autodiffon 10-22 Abs Baso Cnt 0.1 10*3/uL Normal 0.0-0.2 [facility] Comment on above: Performed By: #### P T #### [facility] [address] [place] [address] Abs Neutrophile Cnt 6.0 10*3/uL Normal 1.8-7.0 [facility] Comment on above: Performed By: #### P T #### [facility] [address] [place] [address] Basophils/100 WBC (Bld) 1.0 % Normal 0.0-2.0 [facility] Comment on above: Performed By: #### P T #### [facility] [address] [place] [address] Eosinophils (Bld) [#/Vol] 0.3 10*3/uL Normal 0.0-0.5 [facility] Comment on above: Performed By: #### P T #### [facility] [address] [place] [address] Eosinophils/100 WBC (Bld) 3.0 % Normal 1.0-6.0 [facility] Comment on above: Performed By: #### P T #### [facility] [address] [place] [address] Erythrocyte distribution width (RBC) [Ratio] 17.1 % High 11.5-14.5 [facility] Comment on above: Performed By: #### P T #### [facility] [address] [place] [address] Granulocytes/100 WBC (Bld) 64.1 % Normal 40.0-80.0 [facility] Comment on above: Performed By: #### P T #### [facility] [address] [place] [address] Hematocrit (Bld) [Volume fraction] 33.4 % Low 40.0-52.0 [facility] Comment on above: Performed By: #### P T #### [facility] [address] [place] [address] Hemoglobin (Bld) [Mass/Vol] 10.9 g/dL Low 13.0-18.0 [facility] Comment on above: Performed By: #### P T #### [facility] [address] [place] [address] Lymphocytes (Bld) [#/Vol] 2.5 10*3/uL Normal 1.0-4.3 [facility] Comment on above: Performed By: #### P T #### [facility] [address] [place] [address] Lymphocytes/100 WBC (Bld) 26.3 % Normal 20.0-40.0 [facility] Comment on above: Performed By: #### P T #### [facility] [address] [place] [address] MCH (RBC) [Entitic mass] 28.2 pg Normal 26.0-34.0 [facility] Comment on above: Performed By: #### P T #### [place] [address] [place] [address] MCHC 32.7 % Normal 32.0-36.0 [facility] Comment on above: Performed By: #### P T #### [facility] [address] [place] [address] MCV (RBC) [Entitic vol] 86.3 fL Normal 80.0-98.0 [facility] Comment on above: Performed By: #### P T #### [place] [address] [place] [address] Monocytes (Bld) [#/Vol] 0.5 10*3/uL Normal 0.0-0.8 [facility] Comment on above: Performed By: #### P T #### [facility] [address] [place] [address] Monocytes/100 WBC (Bld) 5.6 % Normal 2.0-10.0 [facility] Comment on above: Performed By: #### P T #### [facility] [address] [place] [address] Platelet mean volume (Bld) [Entitic vol] 7.6 fL Normal 7.4-12.4 [facility] Comment on above: Result Comment: MPV is a calculated measurement using platelet volume ratio. Performed By: #### P T #### [place] [address] [place] [address] Platelets (Bld) [#/Vol] 369 10*3/uL Normal 140-440 [facility] Comment on above: Performed By: #### P T #### [facility] [address] [place] [address] RBC (Bld) [#/Vol] 3.87 10*6/uL Low 4.40-5.90 [facility] Comment on above: Performed By: #### P T #### [facility] [address] [place] [address] WBC (Bld) [#/Vol] 9.4 10*3/uL Normal 3.6-10.7 [facility] Comment on above: Performed By: #### P T #### [facility] [address] [place] [address] Magnesiumon 10-22-2021 Magnesium [Mass/Vol] 2.0 mg/dL Normal 1.6-2.3 [facility] Comment on above: Performed By: #### P T #### [facility] [address] [place] [place] [address] Magnesium [Mass/Vol] 2.0 mg/dL 1.6 - 2 .3 mg/dL [facility] No Panel Informationon 10-22 Radiology Study observation (narrative) [facility] Work Phone: Test Performed by [facility], [address] [place], [place] [address] [facility] Prothrombin Timeon 2 INR 1.1 Normal 0.9-1.1 [facility] Comment on above: Result Comment: Harry [...] HEMDF, LDH3, BMP3, MG3, PT, CEA2 #### [facility] [address] [place] [address] #### B2GPM, B2GPA, B2GPG #### [facility] [address] [place] [address] PT Coag (PPP) [Time] 11.8 s Normal 9.0-12.0 [facility] Comment on above: Result Comment: . Performed By: #### C A19O, LUPUS #### The performing lab is in the report. #### NSEO #### [facility] #### HEMDF, LDH3, BMP3, MG3, PT, CEA2 #### [facility] [address] [place] [address] #### B2GPM, B2GPA, B2GPG #### [address] [address] Protime-INRon 10-22-2021 INR Coag (Bld) [Relative time] 1.1 {INR} [facility] Work Phone: Comment on above: [...] [Time] 11.8 s 9.0 - 12.0 s [facility] Work Phone: Comment on above: . Test Performed by [facility], [address], [place], [place] [address] [facility] Work Phone: VL Ankle Art Brachial Indice s Extremity Bilateralon 10-22-2021 [facility] Ankle Brachial Index Report Patient RADHA Sifuentes: 1950 Study 10/21/2021 Name: Andrew Gonzalez (71yrs) Date: Age: 71 Account: [id number] Gender: M Loc: 444W BP: Ordering Physician: Shruthi Malik Machine Rigger: Rody Cross RDMS, RVT Interpreting Physician: Carina Call Location: [facility] Indications: Foot wounds. Originally ordered as a full PVR. Ordering MEAL MILLER had to modify the order to ABIs [...] supine position. Images were obtained using a [employer] vascular ultrasound machine. Arterial pressure indices: + [...] electronically signed by Carina Call 10/22/2021 13:21 [facility] Carina Call MD - 10/22/2021 [facility] Ankle Brachial Index Report Patient GurpreetRADHA: 1950 Study 10/21/2021 Name: Andrew R (71yrs) Date: Age: 71 Account: [id number] Gender: M Loc: 444W BP: Ordering Physician: Shruthi Malik Machine Rigger: Rody Cross RDMS RVT Interpreting Physician: Carina Call Location: [facility] Indications: Foot wounds. Originally ordered as a full PVR. Ordering MEAL MILLER had to modify the order to ABIs [...] supine position. Images were obtained using a [employer] vascular ultrasound machine. Arterial pressure indices: + [...] by Carina Call 10/22/2021 13:21 [facility] Work Phone: [facility] Work Phone: Basic Metabolic Panelon 10-05 Calcium [Mass/Vol] 9.1 mg/dL Normal 8.4-10.4 [facility] Comment on above: Performed By: #### C OVAG #### [facility] [address] [place] [address] Anion gap [Moles/Vol] 6 mmol/L Normal 3-13 [facility] Comment on above: Performed By: #### C OVAG #### [facility] [address] [place] [address] CO2 [Moles/Vol] 29 mmol/L Normal 22-30 [facility] Comment on above: Performed By: #### C OVAG #### [facility] [address] [place] [address] Creatinine [Mass/Vol] 0.90 mg/dL Normal 0.52-1.25 [facility] Comment on above: Performed By: #### C OVAG #### [facility] [address] [place] [address] GFR/1.73 sq M.predicted among blacks MDRD (S/P/Bld) [Vol rate/Area] mL/min/{1.73_m2} Normal >60 [facility] Comment on above: Performed By: #### C OVAG #### [facility] [address] [place] [address] GFR/1.73 sq M.predicted among non-blacks MDRD (S/P/Bld) [Vol rate/Area] 86.6 mL/min/{1.73_m2} Normal >60 [facility] Comment on above: Result Comment: KDIG [...] secretion. Performed By: #### C OVAG #### [facility] [address] [place] [address] Glucose [Mass/Vol] 106 mg/dL High 70-100 [facility] Comment on above: Performed By: #### C OVAG #### [facility] [address] [place] [address] Urea nitrogen [Mass/Vol] 18 mg/dL High 7-17 [facility] Comment on above: Performed By: #### C OVAG #### [facility] [address] [place] [address] Chloride [Moles/Vol] 105 mmol/L Normal 98-107 [facility] Comment on above: Performed By: #### C OVAG #### [facility] [address] [place] [address] Potassium [Moles/Vol] 4.3 mmol/L Normal 3.5-5.1 [facility] Comment on above: Performed By: #### C OVAG #### [facility] [address] [place] [address] Sodium [Moles/Vol] 139 mmol/L Normal 135-145 [facility] Comment on above: Performed By: #### C OVAG #### [facility] [address] [place] [address] Anion gap [Moles/Vol] 6 mmol/L 3 - 13 mmol/L [facility] Calcium [Mass/Vol] 9.1 mg/dL 8.4 - 10. 4 mg/dL [facility] Chloride [Moles/Vol] 105 mmol/L 98 - 10 7 mmol/L [facility] CO2 [Moles/Vol] 29 mmol/L 22 - 30 mmol/L [facility] Creatinine [Mass/Vol] 0.9 mg/dL 0.52 - 1.25 mg/dL [facility] EGFR IF NonAfrican Somali 86.6 mL/min >60 [facility] Comment on above: KDIGO guidelines [...] [facility], [address] LAB [facility] C-Reactive Proteinon 022 CRP [Mass/Vol] 33.5 mg/L High 0.0-9.9 [facility] Comment on above: Result Comment: . Performed By: #### P T #### [facility] [address] [place] [address] CRP [Mass/Vol] 33.5 mg/L High 0.0 - 9.9 mg/L [facility] Comment on above: . Interpretation and review of laboratory results Abnormal [facility] Test Performed by [facility], [address] LAB [facility] CR Calcaneus 2+ Views Lefton 10-21-2021 CR Calcaneus 2+ Views Left [facility]: [id number] Radiology ACCESSION EXAM DATE/TIME PROCEDURE ORDERING PROVIDER [id number] 10/21/2021 15:30 EDT CR Calcaneus 2+ Views [id number] -SHRUTHI MALIK Left CPT code 83032 Reason For Exam (CR Calcaneus 2+ Views [...] Transcribed Date and Time: 10/21/2021 4:33 Normal [facility] CR Chest 1 View Frontalon CR Chest 1 View Frontal Patient Name: ANDREW SIFUENTES Diagnostic Radiology ACCESSION EXAM DATE/TIME PROCEDURE ORDERING PROVIDER [id number] 10/21/2021 08:16 EDT CR Chest 1 View Frontal [id number] MAY BOGGS CPT code 02543 Reason For Exam (CR Chest 1 View [...] Transcribed Date and Time: 10/21/2021 8:33 Normal [facility] D-Dimer, Innovanceon 022 D-Dimer, Innovance 1.51 mg/L High <0.19-0.50 [facility] Comment on above: Result Comment: Inno saba D-Dimer values of <0.50 mg/L FEU can be used in combination with a pre-test probability model (e.g. Well's) to exclude pulmonary embolism (PE) disease, as well as an aid in the diagnosis of deep vein thrombosis (DVT). Performed By: #### P T #### [facility] [address] [place] [address] D-Dimer, Quantitativeon 10-05 D-Dimer, Quant 1.51 mg/L High <0.19 - 0.50 [facility] Comment on above: Innovance D-Dimer va lues of <0.50 mg/L FEU can be used in combination with a pre-test probability model (e.g. Well's) to exclude pulmonary embolism (PE) disease, as well as an aid in the diagnosis of deep vein thrombosis (DVT). Interpretation and review of laboratory results Abnormal [facility] Test Performed by [facility], [address], [place], [place] [address] [facility] ED Provider Noteon ED Provider Note [facility] ED EMERGENCY DEPARTMENT ENCOUNTER Pt Name: [...] (HCC) ? Kidney stone ? Neuropathy ? TRIM SETTER HELPER (ventriculoperitoneal) shunt status SURGICAL HISTORY Past Surgical [...] and Family: Not on file ? Attends Judaism Services: Not on file ? Active Member [...] LUNGS: Respirations (more content not included)... Normal [facility] Hemogramon 10-21-2021 Erythrocyte distribution width (RBC) [Ratio] 17.3 % High 11.5-14.5 [facility] Comment on above: Performed By: #### C OVAG #### [facility] [address] [place] [address] Hematocrit (Bld) [Volume fraction] 33.6 % Low 40.0-52.0 [facility] Comment on above: Performed By: #### C OVAG #### [facility] [address] [place] [address] Hemoglobin (Bld) [Mass/Vol] 10.9 g/dL Low 13.0-18.0 [facility] Comment on above: Performed By: #### C OVAG #### [facility] [address] [place] [address] MCH (RBC) [Entitic mass] 27.8 pg Normal 26.0-34.0 [facility] Comment on above: Performed By: #### C OVAG #### [facility] [address] [place] [address] MCHC 32.5 % Normal 32.0-36.0 [facility] Comment on above: Performed By: #### C OVAG #### [facility] [address] [place] [address] MCV (RBC) [Entitic vol] 85.6 fL Normal 80.0-98.0 [facility] Comment on above: Performed By: #### C OVAG #### [facility] [address] [place] [address] Platelet mean volume (Bld) [Entitic vol] 7.7 fL Normal 7.4-12.4 [facility] Comment on above: Result Comment: MPV is a calculated measurement using platelet volume ratio. Performed By: #### C OVAG #### [facility] [address] [place] [address] Platelets (Bld) [#/Vol] 404 10*3/uL Normal 140-440 [facility] Comment on above: Performed By: #### C OVAG #### [facility] [address] [place] [address] RBC (Bld) [#/Vol] 3.93 10*6/uL Low 4.40-5.90 [facility] Comment on above: Performed By: #### C OVAG #### [facility] [address] [place] [address] WBC (Bld) [#/Vol] 11.6 10*3/uL High 3.6-10.7 [facility] Comment on above: Performed By: #### C OVAG #### [facility] [address] [place] [address] Hemogram (CBC)on 10-21-2021 Hematocrit (Bld) [Volume fraction] 33.6 % Low 40.0 - 52.0 % [facility] Hemoglobin (Bld) [Mass/Vol] 10.9 g/dL Low 13.0 - 18.0 g/dL [facility] Interpretation and review of laboratory [...] [facility], [address] [place], [place], [place] [address] [facility] NM LUNG VENT/PERFUSION (VQ)o n 10-21-2021 Patient Name: ANDREW SIFUENTES Nuclear Medicine ACCESSION EXAM DATE/TIME PROCEDURE ORDERING PROVIDER [id number] 10/21/2021 07:55 EDT NM Pulmonary Perfusion [id number] MAY BOGGS w/ Vent Aerosol CPT code 47654 A9567 Reason For Exam (NM Pulmonary Perfusion [...] Medicine ACCESSION EXAM DATE/TIME PROCEDURE ORDERING PROVIDER [id number] 10/21/2021 07:55 EDT NM Pulmonary Perfusion [id number] MAY BOGGS w/ Vent Aerosol CPT code 93152 A9567 Reason For Exam (NM Pulmonary Perfusion [...] JOHN Transcribed Date and Time: 10/21/2021 8:49 [facility] Work Phone: NM LUNG VENT/PERFUSION (VQ)O rdered By: Henry Harvey on 10-21-2021 [facility] Work Phone: NM Pulmonary Perfusion w/ Ve nt Aerosol or Gason 10-21-2021 NM Pulmonary Perfusion w/ Vent Aerosol or Gas Patient Name: ANDREW SIFUENTES Nuclear Medicine ACCESSION EXAM DATE/TIME PROCEDURE ORDERING PROVIDER [id number] 10/21/2021 07:55 EDT NM Pulmonary Perfusion [id number] -MAY CASH w/ Vent Aerosol CPT code 41447 A9567 Reason For Exam (NM Pulmonary Perfusion [...] Transcribed Date and Time: 10/21/2021 8:49 Normal [facility] No Panel Informationon 10-21 Radiology Study observation (narrative) [facility] Work Phone: Prothrombin Timeon 2 INR 1.1 Normal 0.9-1.1 [facility] Comment on above: Result Comment: Harry [...] Infarction Performed By: #### C OVAG #### [facility] [address] [place] [address] PT Coag (PPP) [Time] 11.5 s Normal 9.0-12.0 [facility] Comment on above: Result Comment: . Performed By: #### C OVAG #### [facility] [address] [place] [address] Protime-INRon 10-21-2021 INR Coag (Bld) [Relative time] 1.1 {INR} [facility] Comment on above: Recommended Anticoag [...] [Time] 11.5 s 9.0 - 12.0 s [facility] Comment on above: . Test Performed by [facility], [address] LAB [facility] Retic Count(%)on 10-21-2021 Retic Count(%) 1.6 Normal [facility] Comment on above: Result Comment: Newb orn < 5% Adults 0.5 - 1.5% Performed By: #### P T #### [facility] [address] [place] [address] Reticulocyteson 10-21-[address] Pct 1.6 [facility] Comment on above: < 5% Adults 0.5 - 1.5% Test Performed by [facility], [address] [place], [place] [id number] [place] [address] LAB [facility] Sed Rateon 10-21-2021 Sed Rate 63 mm/h High 0-10 [facility] Comment on above: Performed By: #### P T #### [facility] [address] [place] [address] Sedimentation Rateon 022 Interpretation and review of laboratory results Abnormal [facility] Sed Rate 63 mm/h High 0 - 10 mm/h [facility] Test Performed by [facility], [address], [place] [address] [facility] VL CARMELLA Upr/L Extremity Art 1 -2 Levelson 10-21-2021 VL CARMELLA Upr/L Extremity Art 1-2 Levels Patient Name: ANDREW SIFUENTES Ultrasound ACCESSION EXAM DATE/TIME PROCEDURE ORDERING PROVIDER [id number] 10/21/2021 16:12 EDT VL Upr/L Extremity Art [id number] -SHRUTHI MALIK 1-2 Levels CPT code 15941 Reason For Exam (VL Upr/L Extremity Art 1-2 Levels) both lower legs CARMELLA for both feet wounds. Report [facility] Ankle Brachial Index Report Patient RADHA Sifuentes: 1950 Study 10/21/2021 Name: Andrew Gonzalez (71yrs) Date: Age: 71 Account: [id number] Gender: M Loc: 444W BP: Ordering Physician: Shruthi Malik Machine Rigger: Rody Cross RDMS, RVT Interpreting Physician: Carina Call Location: [facility] Indications: Foot wounds. Originally ordered as a full PVR. Ordering MEAL MILLER had to modify the order to ABIs [...] supine position. Images were obtained using a [employer] vascular ultrasound machine. Arterial pressure indices: + [...] CARINA HENNESSY Cardiovascular ACCESSION EXAM DATE/TIME PROCEDURE [id number] 10/21/2021 16:12 EDT VL Upr/L Extremity Art 1-2 Levels CPT code 91186 Reason For Exam (VL Upr/L Extremity Art 1-2 Levels) both lower legs CARMELLA for both feet wounds. Report [facility] Ankle Brachial Index Report Patient DO GurpreetB: 1950 Study 10/21/2021 Name: Andrew Gonzalez (71yr) Date: Age: 71 Account: [id number] Cardiovascular Report Gender: M Loc: 444W BP: Ordering Physician: Shruthi Malik Machine Rigger: Rody Cross RDMS, RVT Interpreting Physician: Carina Call Location: [facility] Indications: Foot wounds. Originally ordered as a full PVR. Ordering MEAL MILLER had to modify the order to ABIs [...] in th (more content not included)... Normal [facility] VL LOWER EXTREMITY BILATERAL VENOUS DUPLEXon 10-21-2021 [facility] Lower Extremity Venous Duplex Report Patient DO GurpreetB: 1950 Study 10/21/2021 Name: Andrew Gonzalez (71yrs) Date: Age: 71 Account: [id number] Gender: M Loc: 444 BP: Ordering Physician: May Cash Machine Rigger: Rody Cross RDMS, RVT Interpreting Physician: Carina [...] supine position. Images were obtained using a [employer] vascular ultrasound machine. Venous flow and imaging: [...] +-------- --------+ + (more content not included)... [facility] Carina Call MD - 10/21/2021 [facility] Lower Extremity Venous Duplex Report Patient DO GurpreetB: 1950 Study 10/21/2021 Name: Andrew Gonzalez (71yrs) Date: Age: 71 Account: [id number] Gender: M Loc: 444 BP: Ordering Physician: May Cash Machine Rigger: Rody Cross RDMS, RVT Interpreting Physician: Carina [...] supine position. Images were obtained using a [employer] vascular ultrasound machine. Venous flow and imaging: [...] + + +----- (more content not included)... [facility] Work Phone: VL LOWER EXTREMITY BILATERAL VENOUS DUPLEXOrdered By: Carina Call on 10-21-2021 [employer] [employer] Work Phone: VL Venous Duplex US Lower Ex t Bilateralon 10-21-2021 VL Venous Duplex US Lower Ext Bilateral Patient Name: ANDREW SIFUENTES Ultrasound ACCESSION EXAM DATE/TIME PROCEDURE ORDERING PROVIDER [id number] 10/21/2021 09:53 EDT VL Venous Duplex [place] [id number] -MAY CASH Lower Ext Bilateral CPT code 10794 Reason For Exam (VL Venous Duplex US Lower Ext Bilateral) bilateral sqwelling redness Report [facility] Lower Extremity Venous Duplex Report Luís Sifuentes DOB: 1950 Study 10/21/2021 Name: Andrew Gonzalez (71yr) Date: Age: 71 Account: [id number] Gender: M Loc: 444 BP: Ordering Physician: May Cash Machine Rigger: Rody Cross RDMS, T Interpreting Physician: Carina Call [facility] supine position. Images were obtained using a [employer] vascular ultrasound machine. Venous flow and imaging: [...] + + (more content not included)... Normal [facility] XR CALCANEUS LEFT (MIN 2 VIE WS)on 10-21-2021 [facility]: [id number]iology ACCESSION EXAM DATE/TIME PROCEDURE ORDERING PROVIDER [id number] 10/21/2021 15:30 EDT CR Calcaneus 2+ Views [id number] -SHRUTHI MALIK Left CPT code 63607 Reason For Exam (CR Calcaneus 2+ Views [...] MD - 10/21/2021 [facility]: [id number] Diagnostic Radiology ACCESSION EXAM DATE/TIME PROCEDURE ORDERING PROVIDER [id number] 10/21/2021 15:30 EDT CR Calcaneus 2+ Views [id number] -SHRUTHI MALIK Left CPT code 32506 Reason For Exam (CR Calcaneus 2+ Views [...] J Transcribed Date and Time: 10/21/2021 4:33 [facility] Work Phone: XR CALCANEUS LEFT (MIN 2 VIE WS)Ordered By: Alan Wong on 10-21-2021 [facility] Work Phone: XR Chest 1 VWon 10-21-2021 Patient Name: ANDREW SIFUENTES Diagnostic Radiology ACCESSION EXAM DATE/TIME PROCEDURE ORDERING PROVIDER [id number] 10/21/2021 08:16 EDT CR Chest 1 View Frontal [id number] FOSTER CPT code 37193 Reason For Exam (CR Chest 1 View [...] OSAMA Transcribed Date and Time: 10/21/2021 8:33 [facility] Venus Loyd MD - 10/21/2021 Patient Name: ANDREW SIFUENTES Diagnostic Radiology ACCESSION EXAM DATE/TIME PROCEDURE ORDERING PROVIDER [id number] 10/21/2021 08:16 EDT CR Chest 1 View Frontal [id number] CONTI CPT code 55730 Reason For Exam (CR Chest 1 View [...] RAMOS Transcribed Date and Time: 10/21/2021 8:33 [facility] Work Phone: XR Chest 1 VWOrdered By: Natalie Loyd on 10-21-2021 [facility] Work Phone: Basophil percentageon 2021 Chloride [Moles/Vol] 108 mmol/L 98-107 [facility] Work Phone: Glucose [Mass/Vol] 93 mg/dL 74-106 [facility] Work Phone: Potassium [Moles/Vol] 3.9 mmol/L 3.5-5.1 [facility] Work Phone: Sodium [Moles/Vol] 140 mmol/L 136-145 [facility] Work Phone: WBC (Bld) [#/Vol] 8.7 10*3/uL 4.4-11.0 [facility] Work Phone: Blood erythrocytes count (nu mber/volume)on 10-20-2021 RBC (Bld) [#/Vol] 3.63 10*6/uL 4.6-6.[address] [facility] Work Phone: Blood hemoglobin measurement (mass/volume)on 10-20-2021 Hemoglobin (Bld) [Mass/Vol] 10.1 g/dL 13.0-16.5 [facility] Work Phone: Blood platelet mean volumeon 10-20-2021 Platelet mean volume (Bld) [Entitic vol] 9.8 fL 6.2-12.0 [facility] Work Phone: Determination of erythrocyte mean corpuscular volume (MCV)on 10-20-2021 MCV (RBC) [Entitic vol] 90.1 fL 80-94 [facility] Work Phone: Hematocrit Auto (Bld) [Volum e fraction]on 10-20-2021 Hematocrit (Bld) [Volume fraction] 32.7 % 40-54 [facility] Work Phone: Laboratory - Chemistry and C hemistry - challengeon 10-20-2021 CO2 [Moles/Vol] 25.0 mmol/L 21.0-32.0 [facility] Work Phone: Urea nitrogen/Creatinine [Mass ratio] 17.4 mg/mg 10-20 [facility] Work Phone: Laboratory - Hematology and Cell countson 10-20-2021 Erythrocyte distribution width (RBC) [Entitic vol] 52.1 fL 35.1-43.9 [facility] Work Phone: Erythrocyte distribution width (RBC) [Ratio] 15.6 % 11.6-14.6 [facility] Work Phone: MCH (RBC) [Entitic mass] 27.8 pg 27.0-32.0 [facility] Work Phone: MCHC Auto (RBC) [Mass/Vol]on 10-20-2021 MCHC (RBC) [Mass/Vol] 30.9 g/dL 32-36 [facility] Work Phone: No Panel Informationon 10-20 Estimated GFR (MDRD) Amer 133 mL/min >60 [facility] Work Phone: Comment on above: GFR Calc Estimated GFR (MDRD) Non-Af Amer 110 mL/min >60 [facility] Work Phone: Comment on above: Non- GFR Calc Platelets bldon 10-20-2021 Platelets (Bld) [#/Vol] 404 10*3/uL 150-450 [facility] Work Phone: Serum or plasma calcium oral urement (mass/volume)on 10-20-2021 Calcium [Mass/Vol] 9.1 mg/dL 8.5-10.1 [facility] Work Phone: Serum or plasma creatinine m easurement (mass/volume)on 10-20-2021 Creatinine [Mass/Vol] 0.75 mg/dL 0.70-1.30 [facility] Work Phone: Comment on above: The validity of the calculated GFR & GFRAA in patients over 70 years has not been determined. Clinical correlation is essential. Serum or plasma urea nitroge n measurement (mass/volume)on 10-20-2021 Urea nitrogen [Mass/Vol] 13 mg/dL 7-18 [facility] Work Phone: Thin prep Papanicolaou smear with manual screeningon 10-20-2021 Thin prep Papanicolaou smear with manual screening 7 5-15 [facility] Work Phone: CNPNon 10-17-2021 CNPN Normal [facility] Absolute lymphocyte counton 09-19-2021 Lymphocytes Auto (Unsp spec) [#/Vol] 1.74 10*3/uL 0.83-4.51 [facility] Work Phone: Basophil percentageon 2021 Basophils/100 WBC (Bld) 0.6 % 0-1 [facility] Work Phone: Bilirubin [Mass/Vol] 0.30 mg/dL 0.20-1.00 [facility] Work Phone: Comment on above: For patients on eltr ombopag therapy, use of Dimension [place] TBIL is not recommended. Chloride [Moles/Vol] 105 mmol/L 98-107 [facility] Work Phone: Eosinophils/100 WBC (Bld) 3.5 % 0-5 [facility] Work Phone: Glucose [Mass/Vol] 91 mg/dL 74-106 [facility] Work Phone: Neutrophils (Bld) [#/Vol] 4.2 10*3/uL 2.0-7.7 [facility] Work Phone: Neutrophils/100 WBC (Bld) 62.6 % 47-70 [facility] Work Phone: Potassium [Moles/Vol] 3.8 mmol/L 3.5-5.1 [facility] Work Phone: Protein [Mass/Vol] 6.3 g/dL 6.4-8.2 [facility] Work Phone: Sodium [Moles/Vol] 139 mmol/L 136-145 [facility] Work Phone: WBC (Bld) [#/Vol] 6.6 10*3/uL 4.4-11.0 [facility] Work Phone: Blood erythrocytes count (nu mber/volume)on 09-19-2021 RBC (Bld) [#/Vol] 3.47 10*6/uL 4.6-6.2 [facility] [facility] Work Phone: Blood hemoglobin measurement (mass/volume)on 09-19-2021 Hemoglobin (Bld) [Mass/Vol] 10.2 g/dL 13.0-16.5 [facility] Work Phone: Blood lymphocytes/100 leukoc yteson 09-19-2021 Lymphocytes/100 WBC (Bld) 26.2 % 19-41 [facility] Work Phone: Blood monocytes/100 leukocyt eson 09-19-2021 Monocytes/100 WBC (Bld) 6.5 % 0-10 [facility] Work Phone: Blood platelet mean volumeon 09-19-2021 Platelet mean volume (Bld) [Entitic vol] 9.6 fL 6.2-12.0 [facility] Work Phone: Determination of erythrocyte mean corpuscular volume (MCV)on 09-19-2021 MCV (RBC) [Entitic vol] 94.8 fL 80-94 [facility] Work Phone: Hematocrit Auto (Bld) [Volum e fraction]on 09-19-2021 Hematocrit (Bld) [Volume fraction] 32.9 % 40-54 [facility] Work Phone: Laboratory - Chemistry and C hemistry - challengeon 09-19-2021 ALP [Catalytic activity/Vol] 109 U/L 45-117 [facility] Work Phone: ALT [Catalytic activity/Vol] 23 U/L 16-61 [facility] Work Phone: CO2 [Moles/Vol] 26.0 mmol/L 21.0-32.0 [facility] Work Phone: Globulin (S) [Mass/Vol] 3.5 g/dL 2.2-4.2 [facility] Work Phone: Urea nitrogen/Creatinine [Mass ratio] 15.3 mg/mg 10-20 [facility] Work Phone: Laboratory - Hematology and Cell countson 09-19-2021 Erythrocyte distribution width (RBC) [Entitic vol] 59.4 fL 35.1-43.9 [facility] Work Phone: Erythrocyte distribution width (RBC) [Ratio] 17.1 % 11.6-14.6 [facility] Work Phone: Immature granulocytes/100 WBC (Bld) 0.600 % 0.0-0.9 [facility] Work Phone: Comment on above: IG% - Immature Granu locytes (promyelocytes, myelocytes and metamyelocytes) > 1% indicates that a LEFT SHIFT is Present. MCH (RBC) [Entitic mass] 29.4 pg 27.0-32.0 [facility] Work Phone: Nucleated RBC/100 WBC (Bld) [Ratio] 0 % 0-5 [facility] Work Phone: MCHC Auto (RBC) [Mass/Vol]on 09-19-2021 MCHC (RBC) [Mass/Vol] 31.0 g/dL 32-36 [facility] Work Phone: No Panel Informationon 09-19 Estimated GFR (MDRD) Amer 175 mL/min >60 [facility] Work Phone: Comment on above: GFR Calc Estimated GFR (MDRD) Non-Af Amer 145 mL/min >60 [facility] Work Phone: Comment on above: Non- GFR Calc Platelets bldon 09-19-2021 Platelets (Bld) [#/Vol] 342 10*3/uL 150-450 [facility] Work Phone: Serum or plasma albumin oral urement (mass/volume)on 09-19-2021 Albumin [Mass/Vol] 2.8 g/dL 3.2-5.0 [facility] Work Phone: Serum or plasma albumin/glob ulin mass ratioon 09-19-2021 Albumin/Globulin [Mass ratio] 0.8 {ratio} 0.9-2.4 [facility] Work Phone: Serum or plasma calcium oral urement (mass/volume)on 09-19-2021 Calcium [Mass/Vol] 9.0 mg/dL 8.5-10.1 [facility] Work Phone: Serum or plasma creatinine m easurement (mass/volume)on 09-19-2021 Creatinine [Mass/Vol] 0.59 mg/dL 0.70-1.30 [facility] Work Phone: Comment on above: The validity of the calculated GFR & GFRAA in patients over 70 years has not been determined. Clinical correlation is essential. Serum or plasma urea nitroge n measurement (mass/volume)on 09-19-2021 Urea nitrogen [Mass/Vol] 9 mg/dL 7-18 [facility] Work Phone: Thin prep Papanicolaou smear with manual screeningon 09-19-2021 Thin prep Papanicolaou smear with manual screening 12 U/L 15-37 [facility] Work Phone: Thin prep Papanicolaou smear with manual screening 8 5-15 [facility] Work Phone: OPERATIVE NOon 08-22-2021 OPERATIVE NO Normal [facility] Basic metabolic 2000 panelon 08-19-2021 Anion gap [Moles/Vol] 10 mmol/L Normal 9-18 [facility] Comment on above: Order Comment: Speci men Type: BLOOD SPECIMENOrdering Facility: [facility] Address: [address] [place] [address] Performed By: #### 2 4321-2 ####[facility] LABORATORYCLIA [id number] [place] [address] [place] Calcium [Mass/Vol] 8.6 mg/dL Normal 8.5-10.2 [facility] Comment on above: Order Comment: Speci men Type: BLOOD SPECIMENOrdering Facility: [facility] Address: [address] [place] [address] Performed By: #### 2 4321-2 ####[facility] LABORATORYCLIA [id number] [address] [place] Chloride [Moles/Vol] 99 mmol/L Normal 97-105 [facility] Comment on above: Order Comment: Speci men Type: BLOOD SPECIMENOrdering Facility: [facility] Address: [address] [place] [address] Performed By: #### 2 4321-2 ####[facility] LABORATORYCLIA [id number] [address] [place] CO2 [Moles/Vol] 29 mmol/L Normal 22-30 [facility] Comment on above: Order Comment: Speci men Type: BLOOD SPECIMENOrdering Facility: [facility] Address: [address] [place] [address] Performed By: #### 2 4321-2 ####[facility] LABORATORYCLIA [id number] [place] [address] [place] Creatinine [Mass/Vol] 0.58 mg/dL Low 0.73-1.22 [facility] Comment on above: Order Comment: Speci men Type: BLOOD SPECIMENOrdering Facility: [facility] Address: [address] [place] [address] Performed By: #### 2 4321-2 ####[facility] LABORATORYCLIA [id number] [address] [place] ESTIMATED GLOMERULAR FILTRATION RATE 106 mL/min/1.73m??? Normal >=60 [facility] Comment on above: Order Comment: Shira feldman Type: BLOOD SPECIMENOrdering Facility: [facility] Address: [address] [place] [address] Result Comment: Luzmaria mated Glomerular Filtration Rate [...] By: #### 2 4321-2 ####[facility] LABORATORYCLIA [id number] [place] [address] [place] Glucose [Mass/Vol] 101 mg/dL High 74-99 [facility] Comment on above: Order Comment: Shira feldman Type: BLOOD SPECIMENOrdering Facility: [facility] Address: [address] [place] [address] Result Comment: The [place] [employer] (ADA) provides guidance for cutoff [...] Standards of Medical Care in Diabetes 2016, [place] [employer]. Diabetes Care. 2016.39(Suppl 1). Performed By: #### 2 4321-2 ####[facility] LABORATORYCLIA [id number] [place] [address] [place] Potassium [Moles/Vol] 3.5 mmol/L Low 3.7-5.1 [facility] Comment on above: Order Comment: Shira feldman Type: BLOOD SPECIMENOrdering Facility: [facility] Address: [address] [address] Performed By: #### 2 4321-2 ####[facility] LABORATORYCLIA [id number] [address] [place] Sodium [Moles/Vol] 138 mmol/L Normal 136-144 [facility] Comment on above: Order Comment: Speci men Type: BLOOD SPECIMENOrdering Facility: [facility] Address: [address] [place] [address] Performed By: #### 2 4321-2 ####[facility] LABORATORYCLIA [id number] [place] [address] [place] Urea nitrogen [Mass/Vol] 11 mg/dL Normal 9-24 [facility] Comment on above: Order Comment: Speci men Type: BLOOD SPECIMENOrdering Facility: [facility] Address: [address] [place] [address] Performed By: #### 2 4321-2 ####[facility] LABORATORYCLIA [id number] [address] [place] CASE MANAGEMon 08-19-2021 CASE MANAGEM Normal [facility] CBC W Auto Differential pane l (Bld)on 08-19-2021 Basophils (Bld) [#/Vol] 0.03 10*3/uL Normal <0.11 [facility] Comment on above: Order Comment: Speci men Type: BLOOD SPECIMENOrdering Facility: [facility] Address: [address] [place] [address] Performed By: #### 5 7021-8 ####[facility] LABORATORYCLIA [id number] [address] [place] Basophils/100 WBC (Bld) 0.4 % Normal [facility] Comment on above: Order Comment: Speci men Type: BLOOD SPECIMENOrdering Facility: [facility] Address: [address] [place] [address] Performed By: #### 5 7021-8 ####[facility]ORATORYCLIA [id number] [address] Differential cell count method Nom (Bld) Auto Normal [facility] Comment on above: Order Comment: Speci men Type: BLOOD SPECIMENOrdering Facility: [facility] Address: [address] [place] [address] Performed By: #### 5 7021-8 ####[facility] LABORATORYCLIA [id number] [address] [place] Eosinophils (Bld) [#/Vol] 0.24 10*3/uL Normal <0.46 [facility] Comment on above: Order Comment: Speci men Type: BLOOD SPECIMENOrdering Facility: [facility] Address: [address] [place] [address] Performed By: #### 5 7021-8 ####[facility] LABORATORYCLIA [id number] [address] Eosinophils/100 WBC (Bld) 3.1 % Normal [facility] Comment on above: Order Comment: Speci men Type: BLOOD SPECIMENOrdering Facility: [facility] Address: [address] [place] [address] Performed By: #### 5 7021-8 ####[facility] LABORATORYCLIA [id number] [address] [place] Erythrocyte distribution width (RBC) [Ratio] 17.5 % High 11.5-15.0 [facility] Comment on above: Order Comment: Speci men Type: BLOOD SPECIMENOrdering Facility: [facility] Address: [address] [place] [address] Performed By: #### 5 7021-8 ####[facility] LABORATORYCLIA [id number] [address] Hematocrit (Bld) [Volume fraction] 30.2 % Low 39.0-51.0 [facility] Comment on above: Order Comment: Speci men Type: BLOOD SPECIMENOrdering Facility: [facility] Address: [address] [place] [address] Performed By: #### 5 7021-8 ####[facility] LABORATORYCLIA [id number] [address] [place] Hemoglobin (Bld) [Mass/Vol] 9.6 g/dL Low 13.0-17.0 [facility] Comment on above: Order Comment: Speci men Type: BLOOD SPECIMENOrdering Facility: [facility] Address: [address] [place] [address] Performed By: #### 5 7021-8 ####[facility] LABORATORYCLIA [id number] [address] IMMATURE GRAN % 0.4 % Normal [facility] Comment on above: Order Comment: Speci men Type: BLOOD SPECIMENOrdering Facility: [facility] Address: [address] [place] [address] Performed By: #### 5 7021-8 ####[facility] LABORATORYCLIA [id number] [address] IMMATURE GRAN ABS 0.03 k/uL Normal <0.10 [facility] Comment on above: Order Comment: Speci men Type: BLOOD SPECIMENOrdering Facility: [facility] Address: [address] [place] [address] Performed By: #### 5 7021-8 ####[facility] LABORATORYCLIA [id number] [address] [place] Lymphocytes (Bld) [#/Vol] 1.71 10*3/uL Normal 1.00-4.00 [facility] Comment on above: Order Comment: Speci men Type: BLOOD SPECIMENOrdering Facility: [facility] Address: [address] [place] [address] Performed By: #### 5 7021-8 ####[facility] LABORATORYCLIA [id number] [address] Lymphocytes/100 WBC (Bld) 22.2 % Normal [facility] Comment on above: Order Comment: Speci men Type: BLOOD SPECIMENOrdering Facility: [facility] Address: [address] [place] [address] Performed By: #### 5 7021-8 ####[facility] LABORATORYCLIA [id number] [address] MCH (RBC) [Entitic mass] 29.4 pg Normal 26.0-34.0 [facility] Comment on above: Order Comment: Speci men Type: BLOOD SPECIMENOrdering Facility: [facility] Address: [address] [place] [address] Performed By: #### 5 7021-8 ####[facility] LABORATORYCLIA [id number] [address] MCHC (RBC) [Mass/Vol] 31.8 g/dL Normal 30.5-36.0 [facility] Comment on above: Order Comment: Speci men Type: BLOOD SPECIMENOrdering Facility: [facility] Address: [address] [place] [address] Performed By: #### 5 7021-8 ####[facility] LABORATORYCLIA [id number] [address] [place] [facility] MCV (RBC) [Entitic vol] 92.6 fL Normal 80.0-100.0 [facility] Comment on above: Order Comment: Speci men Type: BLOOD SPECIMENOrdering Facility: [facility] Address: [address] [place] [address] Performed By: #### 5 7021-8 ####[facility] LABORATORYCLIA [id number] [address] Monocytes (Bld) [#/Vol] 0.50 10*3/uL Normal <0.87 [facility] Comment on above: Order Comment: Speci men Type: BLOOD SPECIMENOrdering Facility: [facility] Address: [address] [place] [address] Performed By: #### 5 7021-8 ####[facility] LABORATORYCLIA [id number] [address] Monocytes/100 WBC (Bld) 6.5 % Normal [facility] Comment on above: Order Comment: Speci men Type: BLOOD SPECIMENOrdering Facility: [facility] Address: [address] [place] [address] Performed By: #### 5 7021-8 ####[facility]ORATORYCLIA [id number] [address] [place] Neutrophils (Bld) [#/Vol] 5.20 10*3/uL Normal 1.45-7.50 [facility] Comment on above: Order Comment: Speci men Type: BLOOD SPECIMENOrdering Facility: [facility] Address: [address] [place] [address] Performed By: #### 5 7021-8 ####[facility]ORATORYCLIA [id number] [address] [place] Neutrophils/100 WBC (Bld) 67.4 % Normal [facility] Comment on above: Order Comment: Speci men Type: BLOOD SPECIMENOrdering Facility: [facility] Address: [address] [place] [address] Performed By: #### 5 7021-8 ####[facility]ORATORYCLIA [id number] [address] [place] Nucleated RBC (Bld) [#/Vol] 10*3/uL Normal <0.01 [facility] Comment on above: Order Comment: Speci men Type: BLOOD SPECIMENOrdering Facility: [facility] Address: [address] [place] [address] Performed By: #### 5 7021-8 ####[facility]ORATORYCLIA [id number] [address] [place] Nucleated RBC/100 WBC (Bld) [Ratio] 0.0 /100 WBC Normal [facility] Comment on above: Order Comment: Speci men Type: BLOOD SPECIMENOrdering Facility: [facility] Address: [address] [place] [address] Performed By: #### 5 7021-8 ####[facility]ORATORYCLIA [id number] [address] [place] Platelet mean volume (Bld) [Entitic vol] 8.9 fL Low 9.0-12.7 [facility] Comment on above: Order Comment: Speci men Type: BLOOD SPECIMENOrdering Facility: [facility] Address: [address] [place] [address] Performed By: #### 5 7021-8 ####[facility] LABORATORYCLIA [id number] [address] [place] Platelets (Bld) [#/Vol] 408 10*3/uL High 150-400 [facility] Comment on above: Order Comment: Speci men Type: BLOOD SPECIMENOrdering Facility: [facility] Address: [address] [place] [address] Performed By: #### 5 7021-8 ####[facility] LABORATORYCLIA [id number] [place] [address] [place] RBC (Bld) [#/Vol] 3.26 10*6/uL Low 4.20-6.00 [facility] Comment on above: Order Comment: Speci men Type: BLOOD SPECIMENOrdering Facility: [facility] Address: [address] [place] [address] Performed By: #### 5 7021-8 ####[facility] LABORATORYCLIA [id number] [place] [address] [place] WBC (Bld) [#/Vol] 7.71 10*3/uL Normal 3.70-11.00 [facility] Comment on above: Order Comment: Speci men Type: BLOOD SPECIMENOrdering Facility: [facility] Address: [address] [place] [address] Performed By: #### 5 7021-8 ####[facility] LABORATORYCLIA [id number] [address] [place] CNDSon 08-19-2021 CNDS Normal [facility] CONSULT PROGon 08-19-2021 CONSULT PROG Normal [facility] THERAPY NTon 08-19-2021 THERAPY NT Normal [facility] Basic metabolic 2000 panelon 08-18-2021 Anion gap [Moles/Vol] 11 mmol/L Normal 9-18 [facility] Comment on above: Order Comment: Speci men Type: BLOOD SPECIMENOrdering Facility: [facility] Address: [address] [place] [address] Performed By: #### 2 4321-2 ####[facility] LABORATORYCLIA [id number] [place] [address] [place] Calcium [Mass/Vol] 8.6 mg/dL Normal 8.5-10.2 [facility] Comment on above: Order Comment: Speci men Type: BLOOD SPECIMENOrdering Facility: [facility] Address: [address] [place] [address] Performed By: #### 2 4321-2 ####[facility] LABORATORYCLIA [id number] [place] [address] [place] Chloride [Moles/Vol] 98 mmol/L Normal 97-105 [facility] Comment on above: Order Comment: Speci men Type: BLOOD SPECIMENOrdering Facility: [facility] Address: [address] [place] [address] Performed By: #### 2 4321-2 ####[facility] LABORATORYCLIA [id number] [place] [address] [place] CO2 [Moles/Vol] 28 mmol/L Normal 22-30 [facility] Comment on above: Order Comment: Speci men Type: BLOOD SPECIMENOrdering Facility: [facility] Address: [address] [place] [address] Performed By: #### 2 4321-2 ####[facility] LABORATORYCLIA [id number] [place] [address] [place] Creatinine [Mass/Vol] 0.56 mg/dL Low 0.73-1.22 [facility] Comment on above: Order Comment: Speci men Type: BLOOD SPECIMENOrdering Facility: [facility] Address: [address] [address] Performed By: #### 2 4321-2 ####[facility]ITALCLIA [id number] [address] [place] ESTIMATED GLOMERULAR FILTRATION RATE 107 mL/min/1.73m??? Normal >=60 [facility] Comment on above: Order Comment: Shira feldman Type: BLOOD SPECIMENOrdering Facility: [facility] Address: [address] [address] Result Comment: Luzmaria mated Glomerular Filtration Rate [...] actual GFR. Performed By: #### 2 4321-2 ####[facility]ENDIA [id number] [place] [address] [place] Glucose [Mass/Vol] 113 mg/dL High 74-99 [facility] Comment on above: Order Comment: Shira feldman Type: BLOOD SPECIMENOrdering Facility: [facility] Address: [address] [address] Result Comment: The [place] [employer] (ADA) provides guidance for cutoff [...] Standards of Medical Care in Diabetes 2016, [place] [employer]. Diabetes Care. 2016.39(Suppl 1). Performed By: #### 2 4321-2 ####[facility] LABORATORYCLIA [id number] [place] [id number] [place] Potassium [Moles/Vol] 3.5 mmol/L Low 3.7-5.1 [facility] Comment on above: Order Comment: Speci men Type: BLOOD SPECIMENOrdering Facility: [facility] Address: [address] [place] [address] Performed By: #### 2 4321-2 ####[facility] LABORATORYCLIA [id number] [address] STATES OF [facility] Sodium [Moles/Vol] 137 mmol/L Normal 136-144 [facility] Comment on above: Order Comment: Speci men Type: BLOOD SPECIMENOrdering Facility: [facility] Address: [address] [place] [address] Performed By: #### 2 4321-2 ####[facility] LABORATORYCLIA [id number] [address] STATES OF [facility] Urea nitrogen [Mass/Vol] 10 mg/dL Normal 9-24 [facility] Comment on above: Order Comment: Speci men Type: BLOOD SPECIMENOrdering Facility: [facility] Address: [address] [place] [address] Performed By: #### 2 4321-2 ####[facility] LABORATORYCLIA [id number] [address] STATES OF [facility] CBC W Auto Differential pane l (Bld)on 08-18-2021 Basophils (Bld) [#/Vol] 10*3/uL Normal <0.11 [facility] Comment on above: Order Comment: Speci men Type: BLOOD SPECIMENOrdering Facility: [facility] Address: [address] [place] [address] Performed By: #### 5 7021-8 ####[facility] LABORATORYCLIA [id number] [address] STATES [facility] Basophils/100 WBC (Bld) 0.3 % Normal [facility] Comment on above: Order Comment: Speci men Type: BLOOD SPECIMENOrdering Facility: [facility] Address: [address] [place] [address] Performed By: #### 5 7021-8 ####[facility] LABORATORYCLIA [id number] [address] Differential cell count method Nom (Bld) Auto Normal [facility] Comment on above: Order Comment: Speci men Type: BLOOD SPECIMENOrdering Facility: [facility] Address: [address] [place] [address] Performed By: #### 5 7021-8 ####[facility] LABORATORYCLIA [id number] [address] Eosinophils (Bld) [#/Vol] 0.37 10*3/uL Normal <0.46 [facility] Comment on above: Order Comment: Speci men Type: BLOOD SPECIMENOrdering Facility: [facility] Address: [address] [place] [address] Performed By: #### 5 7021-8 ####[facility] LABORATORYCLIA [id number] [address] Eosinophils/100 WBC (Bld) 4.8 % Normal [facility] Comment on above: Order Comment: Speci men Type: BLOOD SPECIMENOrdering Facility: [facility] Address: [address] [place] [address] Performed By: #### 5 7021-8 ####[facility] LABORATORYCLIA [id number] [address] Erythrocyte distribution width (RBC) [Ratio] 17.5 % High 11.5-15.0 [facility] Comment on above: Order Comment: Speci men Type: BLOOD SPECIMENOrdering Facility: [facility] Address: [address] [place] [address] Performed By: #### 5 7021-8 ####[facility] LABORATORYCLIA [id number] [address] Hematocrit (Bld) [Volume fraction] 30.2 % Low 39.0-51.0 [facility] Comment on above: Order Comment: Speci men Type: BLOOD SPECIMENOrdering Facility: [facility] Address: [address] [place] [address] Performed By: #### 5 7021-8 ####[facility] LABORATORYCLIA [id number] [address] Hemoglobin (Bld) [Mass/Vol] 9.5 g/dL Low 13.0-17.0 [facility] Comment on above: Order Comment: Speci men Type: BLOOD SPECIMENOrdering Facility: [facility] Address: [address] [place] [address] Performed By: #### 5 7021-8 ####[facility] LABORATORYCLIA [id number] [address] IMMATURE GRAN % 0.4 % Normal [facility] Comment on above: Order Comment: Speci men Type: BLOOD SPECIMENOrdering Facility: [facility] Address: [address] [place] [address] Performed By: #### 5 7021-8 ####[facility] LABORATORYCLIA [id number] [address] IMMATURE GRAN ABS 0.03 k/uL Normal <0.10 [facility] Comment on above: Order Comment: Speci men Type: BLOOD SPECIMENOrdering Facility: [facility] Address: [address] [place] [address] Performed By: #### 5 7021-8 ####[facility] LABORATORYCLIA [id number] [address] [place] Lymphocytes (Bld) [#/Vol] 1.85 10*3/uL Normal 1.00-4.00 [facility] Comment on above: Order Comment: Speci men Type: BLOOD SPECIMENOrdering Facility: [facility] Address: [address] [place] [address] Performed By: #### 5 7021-8 ####[facility]ORATORYCLIA [id number] [address] Lymphocytes/100 WBC (Bld) 23.8 % Normal [facility] Comment on above: Order Comment: Speci men Type: BLOOD SPECIMENOrdering Facility: [facility] Address: [address] [place] [address] Performed By: #### 5 7021-8 ####[facility] LABORATORYCLIA [id number] [address] MCH (RBC) [Entitic mass] 29.5 pg Normal 26.0-34.0 [facility] Comment on above: Order Comment: Speci men Type: BLOOD SPECIMENOrdering Facility: [facility] Address: [address] [place] [address] Performed By: #### 5 7021-8 ####[facility] LABORATORYCLIA [id number] [address] MCHC (RBC) [Mass/Vol] 31.5 g/dL Normal 30.5-36.0 [facility] Comment on above: Order Comment: Speci men Type: BLOOD SPECIMENOrdering Facility: [facility] Address: [address] [place] [address] Performed By: #### 5 7021-8 ####[facility] LABORATORYCLIA [id number] [address] MCV (RBC) [Entitic vol] 93.8 fL Normal 80.0-100.0 [facility] Comment on above: Order Comment: Speci men Type: BLOOD SPECIMENOrdering Facility: [facility] Address: [address] [place] [address] Performed By: #### 5 7021-8 ####[facility] LABORATORYCLIA [id number] [address] Monocytes (Bld) [#/Vol] 0.49 10*3/uL Normal <0.87 [facility] Comment on above: Order Comment: Speci men Type: BLOOD SPECIMENOrdering Facility: [facility] Address: [address] [place] [address] Performed By: #### 5 7021-8 ####[facility]ATORYCLIA [id number] [place] [address] [place] Monocytes/100 WBC (Bld) 6.3 % Normal [facility] Comment on above: Order Comment: Speci men Type: BLOOD SPECIMENOrdering Facility: [facility] Address: [address] [place] [address] Performed By: #### 5 7021-8 ####[facility]ATORYCLIA [id number] [place] [address] [place] Neutrophils (Bld) [#/Vol] 5.00 10*3/uL Normal 1.45-7.50 [facility] Comment on above: Order Comment: Speci men Type: BLOOD SPECIMENOrdering Facility: [facility] Address: [address] [place] [address] Performed By: #### 5 7021-8 ####[facility] LABORATORYCLIA [id number] [address] [place] Neutrophils/100 WBC (Bld) 64.4 % Normal [facility] Comment on above: Order Comment: Speci men Type: BLOOD SPECIMENOrdering Facility: [facility] Address: [address] [place] [address] Performed By: #### 5 7021-8 ####[facility] LABORATORYCLIA [id number] [place] [address] [place] Nucleated RBC (Bld) [#/Vol] 10*3/uL Normal <0.01 [facility] Comment on above: Order Comment: Speci men Type: BLOOD SPECIMENOrdering Facility: [facility] Address: [address] [place] [address] Performed By: #### 5 7021-8 ####[facility]ATORYCLIA [id number] [place] [address] [place] Nucleated RBC/100 WBC (Bld) [Ratio] 0.0 /100 WBC Normal [facility] Comment on above: Order Comment: Speci men Type: BLOOD SPECIMENOrdering Facility: [facility] Address: [address] [place] [address] Performed By: #### 5 7021-8 ####[facility] LABORATORYCLIA [id number] [address] [place] Platelet mean volume (Bld) [Entitic vol] 9.1 fL Normal 9.0-12.7 [facility] Comment on above: Order Comment: Speci men Type: BLOOD SPECIMENOrdering Facility: [facility] Address: [address] [place] [address] Performed By: #### 5 7021-8 ####[facility] LABORATORYCLIA [id number] [place] [address] [place] Platelets (Bld) [#/Vol] 391 10*3/uL Normal 150-400 [facility] Comment on above: Order Comment: Speci men Type: BLOOD SPECIMENOrdering Facility: [facility] Address: [address] [place] [address] Performed By: #### 5 7021-8 ####[facility] LABORATORYCLIA [id number] [place] [address] [place] RBC (Bld) [#/Vol] 3.22 10*6/uL Low 4.20-6.00 [facility] Comment on above: Order Comment: Speci men Type: BLOOD SPECIMENOrdering Facility: [facility] Address: [address] [place] [address] Performed By: #### 5 7021-8 ####[facility] LABORATORYCLIA [id number] [address] [place] WBC (Bld) [#/Vol] 7.76 10*3/uL Normal 3.70-11.00 [facility] Comment on above: Order Comment: Speci men Type: BLOOD SPECIMENOrdering Facility: [facility] Address: [address] [place] [address] Performed By: #### 5 7021-8 ####[facility] LABORATORYCLIA [id number] [address] OF [facility] CONSULT PROGon 08-18-2021 CONSULT PROG Normal [facility] CASE MANAGEMon 08-17-2021 CASE MANAGEM Normal [facility] CBC W Auto Differential pane l (Bld)on 08-17-2021 Basophils (Bld) [#/Vol] 0.04 10*3/uL Normal <0.11 [facility] Comment on above: Order Comment: Speci men Type: BLOOD SPECIMENOrdering Facility: [facility] Address: [address] [place] [address] Performed By: #### 5 7021-8 ####[facility] LABORATORYCLIA [id number] [address] [place] Basophils/100 WBC (Bld) 0.5 % Normal [facility] Comment on above: Order Comment: Speci men Type: BLOOD SPECIMENOrdering Facility: [facility] Address: [address] [place] [address] Performed By: #### 5 7021-8 ####[facility] LABORATORYCLIA [id number] [address] [place] Differential cell count method Nom (Bld) Auto Normal [facility] Comment on above: Order Comment: Speci men Type: BLOOD SPECIMENOrdering Facility: [facility] Address: [address] [place] [address] Performed By: #### 5 7021-8 ####[facility]ATORYCLIA [id number] [place] [address] [place] Eosinophils (Bld) [#/Vol] 0.31 10*3/uL Normal <0.46 [facility] Comment on above: Order Comment: Speci men Type: BLOOD SPECIMENOrdering Facility: [facility] Address: [address] [place] [address] Performed By: #### 5 7021-8 ####[facility]ORYCLIA [id number] [address] [place] Eosinophils/100 WBC (Bld) 3.7 % Normal [facility] Comment on above: Order Comment: Speci men Type: BLOOD SPECIMENOrdering Facility: [facility] Address: [address] [place] [address] Performed By: #### 5 7021-8 ####[facility] LABORATORYCLIA [id number] [address] Erythrocyte distribution width (RBC) [Ratio] 17.4 % High 11.5-15.0 [facility] Comment on above: Order Comment: Speci men Type: BLOOD SPECIMENOrdering Facility: [facility] Address: [address] [place] [address] Performed By: #### 5 7021-8 ####[facility] LABORATORYCLIA [id number] [address] Hematocrit (Bld) [Volume fraction] 30.6 % Low 39.0-51.0 [facility] Comment on above: Order Comment: Speci men Type: BLOOD SPECIMENOrdering Facility: [facility] Address: [address] [place] [address] Performed By: #### 5 7021-8 ####[facility] LABORATORYCLIA [id number] [address] STATES OF [facility] Hemoglobin (Bld) [Mass/Vol] 9.6 g/dL Low 13.0-17.0 [facility] Comment on above: Order Comment: Speci men Type: BLOOD SPECIMENOrdering Facility: [facility] Address: [address] [place] [address] Performed By: #### 5 7021-8 ####[facility] LABORATORYCLIA [id number] [address] IMMATURE GRAN % 0.2 % Normal [facility] Comment on above: Order Comment: Speci men Type: BLOOD SPECIMENOrdering Facility: [facility] Address: [address] [place] [address] Performed By: #### 5 7021-8 ####[facility] LABORATORYCLIA [id number] [address] IMMATURE GRAN ABS <0.03 Normal <0.10 [facility] Comment on above: Order Comment: Speci men Type: BLOOD SPECIMENOrdering Facility: [facility] Address: [address] [place] [address] Performed By: #### 5 7021-8 ####[facility] LABORATORYCLIA [id number] [address] [place] Lymphocytes (Bld) [#/Vol] 1.66 10*3/uL Normal 1.00-4.00 [facility] Comment on above: Order Comment: Speci men Type: BLOOD SPECIMENOrdering Facility: [facility] Address: [address] [place] [address] Performed By: #### 5 7021-8 ####[facility] LABORATORYCLIA [id number] [address] Lymphocytes/100 WBC (Bld) 19.9 % Normal [facility] Comment on above: Order Comment: Speci men Type: BLOOD SPECIMENOrdering Facility: [facility] Address: [address] [place] [address] Performed By: #### 5 7021-8 ####[facility] LABORATORYCLIA [id number] [address] [place] MCH (RBC) [Entitic mass] 28.9 pg Normal 26.0-34.0 [facility] Comment on above: Order Comment: Speci men Type: BLOOD SPECIMENOrdering Facility: [facility] Address: [address] [place] [address] Performed By: #### 5 7021-8 ####[facility] LABORATORYCLIA [id number] [address] [place] MCHC (RBC) [Mass/Vol] 31.4 g/dL Normal 30.5-36.0 [facility] Comment on above: Order Comment: Speci men Type: BLOOD SPECIMENOrdering Facility: [facility] Address: [address] [place] [address] Performed By: #### 5 7021-8 ####[facility] LABORATORYCLIA [id number] [place] [address] [place] MCV (RBC) [Entitic vol] 92.2 fL Normal 80.0-100.0 [facility] Comment on above: Order Comment: Speci men Type: BLOOD SPECIMENOrdering Facility: [facility] Address: [address] [place] [address] Performed By: #### 5 7021-8 ####[facility] LABORATORYCLIA [id number] [place] [address] [place] Monocytes (Bld) [#/Vol] 0.52 10*3/uL Normal <0.87 [facility] Comment on above: Order Comment: Speci men Type: BLOOD SPECIMENOrdering Facility: [facility] Address: [address] [place] [address] Performed By: #### 5 7021-8 ####[facility] LABORATORYCLIA [id number] [address] [place] Monocytes/100 WBC (Bld) 6.2 % Normal [facility] Comment on above: Order Comment: Speci men Type: BLOOD SPECIMENOrdering Facility: [facility] Address: [address] [place] [address] Performed By: #### 5 7021-8 ####[facility] LABORATORYCLIA [id number] [place] [address] [place] Neutrophils (Bld) [#/Vol] 5.78 10*3/uL Normal 1.45-7.50 [facility] Comment on above: Order Comment: Speci men Type: BLOOD SPECIMENOrdering Facility: [facility] Address: [address] [place] [address] Performed By: #### 5 7021-8 ####[facility] LABORATORYCLIA [id number] [address] [place] Neutrophils/100 WBC (Bld) 69.5 % Normal [facility] Comment on above: Order Comment: Speci men Type: BLOOD SPECIMENOrdering Facility: [facility] Address: [address] [place], [place] [id number] Performed By: #### 5 7021-8 ####[facility] LABORATORYCLIA [id number] [address] Nucleated RBC (Bld) [#/Vol] 10*3/uL Normal <0.01 [facility] Comment on above: Order Comment: Speci men Type: BLOOD SPECIMENOrdering Facility: [facility] Address: [address] [place] [address] Performed By: #### 5 7021-8 ####[facility] LABORATORYCLIA [id number] [address] OF [facility] Nucleated RBC/100 WBC (Bld) [Ratio] 0.0 /100 WBC Normal [facility] Comment on above: Order Comment: Speci men Type: BLOOD SPECIMENOrdering Facility: [facility] Address: [address] [place] [address] Performed By: #### 5 7021-8 ####[facility] LABORATORYCLIA [id number] [address] Platelet mean volume (Bld) [Entitic vol] 9.2 fL Normal 9.0-12.7 [facility] Comment on above: Order Comment: Speci men Type: BLOOD SPECIMENOrdering Facility: [facility] Address: [address] [place] [address] Performed By: #### 5 7021-8 ####[facility] LABORATORYCLIA [id number] [address] [place] Platelets (Bld) [#/Vol] 379 10*3/uL Normal 150-400 [facility] Comment on above: Order Comment: Speci men Type: BLOOD SPECIMENOrdering Facility: [facility] Address: [address] [place] [address] Performed By: #### 5 7021-8 ####[facility] LABORATORYCLIA [id number] [address] OF [place] RBC (Bld) [#/Vol] 3.32 10*6/uL Low 4.20-6.00 [facility] Comment on above: Order Comment: Speci men Type: BLOOD SPECIMENOrdering Facility: [facility] Address: [address] [place] [address] Performed By: #### 5 7021-8 ####[facility] LABORATORYCLIA [id number] [place] [address] [place] WBC (Bld) [#/Vol] 8.33 10*3/uL Normal 3.70-11.00 [facility] Comment on above: Order Comment: Speci men Type: BLOOD SPECIMENOrdering Facility: [facility] Address: [address] [place] [address] Performed By: #### 5 7021-8 ####[facility] [facility]ATORYCLIA [id number] [address] [place] CONSULT PROGon 08-17-2021 CONSULT PROG Normal [facility] NUTRITIONon 08-17-2021 NUTRITION Normal [facility] Basic metabolic 2000 panelon 08-16-2021 Anion gap [Moles/Vol] 14 mmol/L Normal 9-18 [facility] Comment on above: Order Comment: Speci men Type: BLOOD SPECIMENOrdering Facility: [facility] Address: [address] [place] [address] Performed By: #### 2 4321-2, 55215-9 ####[facility] LABORATORYCLIA [id number] [place] [address] [place] Calcium [Mass/Vol] 8.8 mg/dL Normal 8.5-10.2 [facility] Comment on above: Order Comment: Speci men Type: BLOOD SPECIMENOrdering Facility: [facility] Address: [address] [place] [address] Performed By: #### 2 4321-2, 47049-4 ####[facility] LABORATORYCLIA [id number] [place] [address] [place] Chloride [Moles/Vol] 97 mmol/L Normal 97-105 [facility] Comment on above: Order Comment: Speci men Type: BLOOD SPECIMENOrdering Facility: [facility] Address: [address] [place] [address] Performed By: #### 2 432-2, ####[facility] LABORATORYCLIA [id number] [address] [place] CO2 [Moles/Vol] 27 mmol/L Normal 22-30 [facility] Comment on above: Order Comment: Speci men Type: BLOOD SPECIMENOrdering Facility: [facility] Address: [address] [place] [address] Performed By: #### 2 4322, ####[facility] LABORATORYCLIA [id number] [address] STATES OF [facility] Creatinine [Mass/Vol] 0.50 mg/dL Low 0.73-1.22 [facility] Comment on above: Order Comment: Speci men Type: BLOOD SPECIMENOrdering Facility: [facility] Address: [address] [place] [address] Performed By: #### 2 4320-06, ####[facility] LABORATORYCLIA [id number] [address] ESTIMATED GLOMERULAR FILTRATION RATE 110 mL/min/1.73m??? Normal >=60 [facility] Comment on above: Order Comment: Speci men Type: BLOOD SPECIMENOrdering Facility: [facility] Address: [address] [place] [address] Result Comment: Luzmaria mated Glomerular Filtration Rate [...] By: #### 2 4321-2, ####[facility] LABORATORYCLIA [id number] [place] [id number] [place] Glucose [Mass/Vol] 101 mg/dL High 74-99 [facility] Comment on above: Order Comment: Speccara men Type: BLOOD SPECIMENOrdering Facility: [facility] Address: [address] [place] [address] Result Comment: The [place] [employer] (ADA) provides guidance for cutoff [...] Standards of Medical Care in Diabetes 2016, [place] [employer]. Diabetes Care. 2016.39(Suppl 1). Performed By: #### 2 4320-06, ####[facility] LABORATORYCLIA [id number] [place] [address] [place] Potassium [Moles/Vol] 3.6 mmol/L Low 3.7-5.1 [facility] Comment on above: Order Comment: Shira feldman Type: BLOOD SPECIMENOrdering Facility: [facility] Address: [address] [place] [address] Performed By: #### 2 ####[facility] LABORATORYCLIA [id number] [place] [address] [place] Sodium [Moles/Vol] 138 mmol/L Normal 136-144 [facility] Comment on above: Order Comment: Shira feldman Type: BLOOD SPECIMENOrdering Facility: [facility] Address: [address] [place] [address] Performed By: #### 2 4320-06, ####[facility] LABORATORYCLIA [id number] [place] [address] [place] Urea nitrogen [Mass/Vol] 11 mg/dL Normal 9-24 [facility] Comment on above: Order Comment: Speci men Type: BLOOD SPECIMENOrdering Facility: [facility] Address: [address] [place] [address] Performed By: #### 2 4321-2, 29414-9 ####[facility] LABORATORYCLIA [id number] [address] [place] CASE MANAGEMon 08-16-2021 CASE MANAGEM Normal [facility] CBC W Auto Differential pane l (Bld)on 08-16-2021 Basophils (Bld) [#/Vol] 0.03 10*3/uL Normal <0.11 [facility] Comment on above: Order Comment: Speci men Type: BLOOD SPECIMENOrdering Facility: [facility] Address: [address] [place] [address] Performed By: #### 5 7021-8 ####[facility] LABORATORYCLIA [id number] [address] [place] Basophils/100 WBC (Bld) 0.4 % Normal [facility] Comment on above: Order Comment: Speci men Type: BLOOD SPECIMENOrdering Facility: [facility] Address: [address] [place] [address] Performed By: #### 5 7021-8 ####[facility] LABORATORYCLIA [id number] [address] [place] Differential cell count method Nom (Bld) Auto Normal [facility] Comment on above: Order Comment: Speci men Type: BLOOD SPECIMENOrdering Facility: [facility] Address: [address] [place] [address] Performed By: #### 5 7021-8 ####[facility] LABORATORYCLIA [id number] [place] [address] [place] Eosinophils (Bld) [#/Vol] 0.19 10*3/uL Normal <0.46 [facility] Comment on above: Order Comment: Speci men Type: BLOOD SPECIMENOrdering Facility: [facility] Address: [address] [place] [address] Performed By: #### 5 7021-8 ####[facility]ORATORYCLIA [id number] [address] STATES [facility] Eosinophils/100 WBC (Bld) 2.5 % Normal [facility] Comment on above: Order Comment: Speci men Type: BLOOD SPECIMENOrdering Facility: [facility] Address: [address] [place] [address] Performed By: #### 5 7021-8 ####[facility] LABORATORYCLIA [id number] [address] Erythrocyte distribution width (RBC) [Ratio] 17.1 % High 11.5-15.0 [facility] Comment on above: Order Comment: Speci men Type: BLOOD SPECIMENOrdering Facility: [facility] Address: [address] [place] [address] Performed By: #### 5 7021-8 ####[facility] LABORATORYCLIA [id number] [address] Hematocrit (Bld) [Volume fraction] 29.2 % Low 39.0-51.0 [facility] Comment on above: Order Comment: Speci men Type: BLOOD SPECIMENOrdering Facility: [facility] Address: [address] [place] [address] Performed By: #### 5 7021-8 ####[facility] LABORATORYCLIA [id number] [address] [place] Hemoglobin (Bld) [Mass/Vol] 9.0 g/dL Low 13.0-17.0 [facility] Comment on above: Order Comment: Speci men Type: BLOOD SPECIMENOrdering Facility: [facility] Address: [address] [place] [address] Performed By: #### 5 7021-8 ####[facility]ORATORYCLIA [id number] [address] IMMATURE GRAN % 0.3 % Normal [facility] Comment on above: Order Comment: Speci men Type: BLOOD SPECIMENOrdering Facility: [facility] Address: [address] [place] [address] Performed By: #### 5 7021-8 ####[facility] LABORATORYCLIA [id number] [address] IMMATURE GRAN ABS <0.03 Normal <0.10 [facility] Comment on above: Order Comment: Speci men Type: BLOOD SPECIMENOrdering Facility: [facility] Address: [address] [place] [address] Performed By: #### 5 7021-8 ####[facility] LABORATORYCLIA [id number] [address] Lymphocytes (Bld) [#/Vol] 1.41 10*3/uL Normal 1.00-4.00 [facility] Comment on above: Order Comment: Speci men Type: BLOOD SPECIMENOrdering Facility: [facility] Address: [address] [place] [address] Performed By: #### 5 7021-8 ####[facility] LABORATORYCLIA [id number] [address] Lymphocytes/100 WBC (Bld) 18.4 % Normal [facility] Comment on above: Order Comment: Speci men Type: BLOOD SPECIMENOrdering Facility: [facility] Address: [address] [place] [address] Performed By: #### 5 7021-8 ####[facility] LABORATORYCLIA [id number] [address] MCH (RBC) [Entitic mass] 28.0 pg Normal 26.0-34.0 [facility] Comment on above: Order Comment: Speci men Type: BLOOD SPECIMENOrdering Facility: [facility] Address: [address] [place] [address] Performed By: #### 5 7021-8 ####[facility] LABORATORYCLIA [id number] [address] MCHC (RBC) [Mass/Vol] 30.8 g/dL Normal 30.5-36.0 [facility] Comment on above: Order Comment: Speci men Type: BLOOD SPECIMENOrdering Facility: [facility] Address: [address] [place] [address] Performed By: #### 5 7021-8 ####[facility] LABORATORYCLIA [id number] [address] [place] MCV (RBC) [Entitic vol] 91.0 fL Normal 80.0-100.0 [facility] Comment on above: Order Comment: Speci men Type: BLOOD SPECIMENOrdering Facility: [facility] Address: [address] [place] [address] Performed By: #### 5 7021-8 ####[facility] LABORATORYCLIA [id number] [address] [place] Monocytes (Bld) [#/Vol] 0.47 10*3/uL Normal <0.87 [facility] Comment on above: Order Comment: Speci men Type: BLOOD SPECIMENOrdering Facility: [facility] Address: [address] [place] [address] Performed By: #### 5 7021-8 ####[facility] LABORATORYCLIA [id number] [address] Monocytes/100 WBC (Bld) 6.1 % Normal [facility] Comment on above: Order Comment: Speci men Type: BLOOD SPECIMENOrdering Facility: [facility] Address: [address] [place] [address] Performed By: #### 5 7021-8 ####[facility] LABORATORYCLIA [id number] [address] [place] Neutrophils (Bld) [#/Vol] 5.55 10*3/uL Normal 1.45-7.50 [facility] Comment on above: Order Comment: Speci men Type: BLOOD SPECIMENOrdering Facility: [facility] Address: [address] [place] [address] Performed By: #### 5 7021-8 ####[facility] LABORATORYCLIA [id number] [address] Neutrophils/100 WBC (Bld) 72.3 % Normal [facility] Comment on above: Order Comment: Speci men Type: BLOOD SPECIMENOrdering Facility: [facility] Address: [address] [place] [address] Performed By: #### 5 7021-8 ####[facility] LABORATORYCLIA [id number] [address] [place] Nucleated RBC (Bld) [#/Vol] 10*3/uL Normal <0.01 [facility] Comment on above: Order Comment: Speci men Type: BLOOD SPECIMENOrdering Facility: [facility] Address: [address] [place] [address] Performed By: #### 5 7021-8 ####[facility] LABORATORYCLIA [id number] [address] Nucleated RBC/100 WBC (Bld) [Ratio] 0.0 /100 WBC Normal [facility] Comment on above: Order Comment: Speci men Type: BLOOD SPECIMENOrdering Facility: [facility] Address: [address] [place] [address] Performed By: #### 5 7021-8 ####[facility] LABORATORYCLIA [id number] [address] [place] Platelet mean volume (Bld) [Entitic vol] 9.3 fL Normal 9.0-12.7 [facility] Comment on above: Order Comment: Speci men Type: BLOOD SPECIMENOrdering Facility: [facility] Address: [address] [place] [address] Performed By: #### 5 7021-8 ####[facility] LABORATORYCLIA [id number] [address] Platelets (Bld) [#/Vol] 319 10*3/uL Normal 150-400 [facility] Comment on above: Order Comment: Speci men Type: BLOOD SPECIMENOrdering Facility: [facility] Address: [address] [place] [address] Performed By: #### 5 7021-8 ####[facility] LABORATORYCLIA [id number] [address] STATES OF [facility] RBC (Bld) [#/Vol] 3.21 10*6/uL Low 4.20-6.00 [facility] Comment on above: Order Comment: Speci men Type: BLOOD SPECIMENOrdering Facility: [facility] Address: [address] [place] [address] Performed By: #### 5 7021-8 ####[facility] LABORATORYCLIA [id number] [address] OF [facility] WBC (Bld) [#/Vol] 7.67 10*3/uL Normal 3.70-11.00 [facility] Comment on above: Order Comment: Speci men Type: BLOOD SPECIMENOrdering Facility: [facility] Address: [address] [place] [address] Performed By: #### 5 7021-8 ####[facility] LABORATORYCLIA [id number] [address] STATES [facility] Basophils (Bld) [#/Vol] 0.04 10*3/uL Normal <0.11 [facility] Comment on above: Order Comment: Speci men Type: BLOOD SPECIMENOrdering Facility: [facility] Address: [address] [place] [address] Performed By: #### 5 7021-8 ####[facility] LABORATORYCLIA [id number] [address] Basophils/100 WBC (Bld) 0.5 % Normal [facility] Comment on above: Order Comment: Speci men Type: BLOOD SPECIMENOrdering Facility: [facility] Address: [address] [place] [address] Performed By: #### 5 7021-8 ####[facility] LABORATORYCLIA [id number] [address] Differential cell count method Nom (Bld) Auto Normal [facility] Comment on above: Order Comment: Speci men Type: BLOOD SPECIMENOrdering Facility: [facility] Address: [address] [place] [address] Performed By: #### 5 7021-8 ####[facility] LABORATORYCLIA [id number] [address] [place] Eosinophils (Bld) [#/Vol] 0.19 10*3/uL Normal <0.46 [facility] Comment on above: Order Comment: Speci men Type: BLOOD SPECIMENOrdering Facility: [facility] Address: [address] [place] [address] Performed By: #### 5 7021-8 ####[facility] LABORATORYCLIA [id number] [address] [place] Eosinophils/100 WBC (Bld) 2.5 % Normal [facility] Comment on above: Order Comment: Speci men Type: BLOOD SPECIMENOrdering Facility: [facility] Address: [address] [place] [address] Performed By: #### 5 7021-8 ####[facility] LABORATORYCLIA [id number] [address] [place] Erythrocyte distribution width (RBC) [Ratio] 17.2 % High 11.5-15.0 [facility] Comment on above: Order Comment: Speci men Type: BLOOD SPECIMENOrdering Facility: [facility] Address: [address] [place] [address] Performed By: #### 5 7021-8 ####[facility] LABORATORYCLIA [id number] [address] [place] Hematocrit (Bld) [Volume fraction] 29.5 % Low 39.0-51.0 [facility] Comment on above: Order Comment: Speci men Type: BLOOD SPECIMENOrdering Facility: [facility] Address: [address] [place] [address] Performed By: #### 5 7021-8 ####[facility] LABORATORYCLIA [id number] [address] OF [facility] Hemoglobin (Bld) [Mass/Vol] 9.2 g/dL Low 13.0-17.0 [facility] Comment on above: Order Comment: Speci men Type: BLOOD SPECIMENOrdering Facility: [facility] Address: [address] [place] [address] Performed By: #### 5 7021-8 ####[facility] LABORATORYCLIA [id number] [address] IMMATURE GRAN % 0.4 % Normal [facility] Comment on above: Order Comment: Speci men Type: BLOOD SPECIMENOrdering Facility: [facility] Address: [address] [place] [address] Performed By: #### 5 7021-8 ####[facility] LABORATORYCLIA [id number] [address] IMMATURE GRAN ABS 0.03 k/uL Normal <0.10 [facility] Comment on above: Order Comment: Speci men Type: BLOOD SPECIMENOrdering Facility: [facility] Address: [address] [place] [address] Performed By: #### 5 7021-8 ####[facility] LABORATORYCLIA [id number] [address] [place] Lymphocytes (Bld) [#/Vol] 1.50 10*3/uL Normal 1.00-4.00 [facility] Comment on above: Order Comment: Speci men Type: BLOOD SPECIMENOrdering Facility: [facility] Address: [address] [place] [address] Performed By: #### 5 7021-8 ####[facility] LABORATORYCLIA [id number] [address] Lymphocytes/100 WBC (Bld) 19.7 % Normal [facility] Comment on above: Order Comment: Speci men Type: BLOOD SPECIMENOrdering Facility: [facility] Address: [address] [place] [address] Performed By: #### 5 7021-8 ####[facility] LABORATORYCLIA [id number] [address] MCH (RBC) [Entitic mass] 28.3 pg Normal 26.0-34.0 [facility] Comment on above: Order Comment: Speci men Type: BLOOD SPECIMENOrdering Facility: [facility] Address: [address] [place] [address] Performed By: #### 5 7021-8 ####[facility] LABORATORYCLIA [id number] [address] MCHC (RBC) [Mass/Vol] 31.2 g/dL Normal 30.5-36.0 [facility] Comment on above: Order Comment: Speci men Type: BLOOD SPECIMENOrdering Facility: [facility] Address: [address] [place] [address] Performed By: #### 5 7021-8 ####[facility] LABORATORYCLIA [id number] [address] MCV (RBC) [Entitic vol] 90.8 fL Normal 80.0-100.0 [facility] Comment on above: Order Comment: Speci men Type: BLOOD SPECIMENOrdering Facility: [facility] Address: [address] [place] [address] Performed By: #### 5 7021-8 ####[facility] LABORATORYCLIA [id number] [address] Monocytes (Bld) [#/Vol] 0.49 10*3/uL Normal <0.87 [facility] Comment on above: Order Comment: Speci men Type: BLOOD SPECIMENOrdering Facility: [facility] Address: [address] [place] [address] Performed By: #### 5 7021-8 ####[facility] LABORATORYCLIA [id number] [address] Monocytes/100 WBC (Bld) 6.4 % Normal [facility] Comment on above: Order Comment: Speci men Type: BLOOD SPECIMENOrdering Facility: [facility] Address: [address] [place] [place] [address] Performed By: #### 5 7021-8 ####[facility]ATORYCLIA [id number] [address] [place] Neutrophils (Bld) [#/Vol] 5.38 10*3/uL Normal 1.45-7.50 [facility] Comment on above: Order Comment: Speci men Type: BLOOD SPECIMENOrdering Facility: [facility] Address: [address] [place] [address] Performed By: #### 5 7021-8 ####[facility]ATORYCLIA [id number] [address] Neutrophils/100 WBC (Bld) 70.5 % Normal [facility] Comment on above: Order Comment: Speci men Type: BLOOD SPECIMENOrdering Facility: [facility] Address: [address] [place] [address] Performed By: #### 5 7021-8 ####[facility] LABORATORYCLIA [id number] [address] Nucleated RBC (Bld) [#/Vol] 10*3/uL Normal <0.01 [facility] Comment on above: Order Comment: Speci men Type: BLOOD SPECIMENOrdering Facility: [facility] Address: [address] [place] [place] [address] Performed By: #### 5 7021-8 ####[facility]ORATORYCLIA [id number] [address] Nucleated RBC/100 WBC (Bld) [Ratio] 0.0 /100 WBC Normal [facility] Comment on above: Order Comment: Speci men Type: BLOOD SPECIMENOrdering Facility: [facility] Address: [address] [place] [address] Performed By: #### 5 7021-8 ####[facility] LABORATORYCLIA [id number] [place] [address] [place] Platelet mean volume (Bld) [Entitic vol] 9.0 fL Normal 9.0-12.7 [facility] Comment on above: Order Comment: Speci men Type: BLOOD SPECIMENOrdering Facility: [facility] Address: [address] [place] [address] Performed By: #### 5 7021-8 ####[facility] LABORATORYCLIA [id number] [place] [address] [place] Platelets (Bld) [#/Vol] 316 10*3/uL Normal 150-400 [facility] Comment on above: Order Comment: Speci men Type: BLOOD SPECIMENOrdering Facility: [facility] Address: [address] [place] [address] Performed By: #### 5 7021-8 ####[facility] LABORATORYCLIA [id number] [place] [address] [place] RBC (Bld) [#/Vol] 3.25 10*6/uL Low 4.20-6.00 [facility] Comment on above: Order Comment: Speci men Type: BLOOD SPECIMENOrdering Facility: [facility] Address: [address] [place] [address] Performed By: #### 5 7021-8 ####[facility] LABORATORYCLIA [id number] [address] [place] WBC (Bld) [#/Vol] 7.63 10*3/uL Normal 3.70-11.00 [facility] Comment on above: Order Comment: Speci men Type: BLOOD SPECIMENOrdering Facility: [facility] Address: [address] [place] [address] Performed By: #### 5 7021-8 ####[facility] LABORATORYCLIA [id number] [address] [place] Basophils (Bld) [#/Vol] Normal <0.11 [facility] Comment on above: Order Comment: Speci men Type: BLOOD SPECIMENOrdering Facility: [facility] Address: [address] [place] [address] Result Comment: Carolina Owens RN informed lab after results autoverified that she rd on the wrong patient. Lab to credit. Nurse to redraw on correct patient.Corrected result: Previously reported as 0.04 k/uL on 08/16/2021 at 4:44 AM EDT. Performed By: #### 5 7021-8 ####[facility] LABORATORYCLIA [id number] [address] STATES [facility] Basophils/100 WBC (Bld) Normal [facility] Comment on above: Order Comment: Speci men Type: BLOOD SPECIMENOrdering Facility: [facility] Address: [address] [place] [address] Result Comment: Tati ected result: Previously reported as 0.4 % on 08/16/2021 at 4:44 AM EDT. Performed By: #### 5 7021-8 ####[facility] LABORATORYCLIA [id number] [address] CBC W Differential panel, method unspecified (Bld) Normal [facility] Comment on above: Order Comment: Speci men Type: BLOOD SPECIMENOrdering Facility: [facility] Address: [address] [place] [address] Result Comment: Carolina Owens RN informed lab after results autoverified that she rd on the wrong patient. Lab to credit. Nurse to redraw on correct patient. Performed By: #### 5 7021-8 ####[facility] LABORATORYCLIA [id number] [address] Differential cell count method Nom (Bld) Normal [facility] Comment on above: Order Comment: Speci men Type: BLOOD SPECIMENOrdering Facility: [facility] Address: [address] [place] [address] Result Comment: Carolina Owens RN informed lab after results autoverified that she rd on the wrong patient. Lab to credit. Nurse to redraw on correct patient.Corrected result: Previously reported as Auto on 08/16/2021 at 4:44 AM EDT. Performed By: #### 5 7021-8 ####[facility] LABORATORYCLIA [id number] [address] [place] Eosinophils (Bld) [#/Vol] Normal <0.46 [facility] Comment on above: Order Comment: Speci men Type: BLOOD SPECIMENOrdering Facility: [facility] Address: [address] [place] [address] Result Comment: Carolina Owens RN informed lab after results autoverified that she rd on the wrong patient. Lab to credit. Nurse to redraw on correct patient.Corrected result: Previously reported as 0.07 k/uL on 08/16/2021 at 4:44 AM EDT. Performed By: #### 5 7021-8 ####[facility] LABORATORYCLIA [id number] [address] Eosinophils/100 WBC (Bld) Normal [facility] Comment on above: Order Comment: Speci [facility] Type: BLOOD SPECIMENOrdering Facility: [facility] Address: [address] [place] [address] Result Comment: Carolina Owens RN informed lab after results autoverified that she rd on the wrong patient. Lab to credit. Nurse to redraw on correct patient.Corrected result: Previously reported as 0.7 % on 08/16/2021 at 4:44 AM EDT. Performed By: #### 5 7021-8 ####[facility] LABORATORYCLIA [id number] [address] [place] Erythrocyte distribution width (RBC) [Ratio] Normal 11.5-15.0 [facility] Comment on above: Order Comment: Speci [facility] Type: BLOOD SPECIMENOrdering Facility: [facility] Address: [address] [place] [address] Result Comment: Carolina Owens RN informed lab after results autoverified that she rd on the wrong patient. Lab to credit. Nurse to redraw on correct patient.Corrected result: Previously reported as 14.2 % on 08/16/2021 at 4:44 AM EDT. Performed By: #### 5 7021-8 ####[facility] LABORATORYCLIA [id number] [address] Hematocrit (Bld) [Volume fraction] Normal 39.0-51.0 [facility] Comment on above: Order Comment: Speci men Type: BLOOD SPECIMENOrdering Facility: [facility] Address: [address] [place] [address] Result Comment: Carolina Owens RN informed lab after results autoverified that she rd on the wrong patient. Lab to credit. Nurse to redraw on correct patient.Corrected result: Previously reported as 34.3 % on 08/16/2021 at 4:44 AM EDT. Performed By: #### 5 7021-8 ####[facility] LABORATORYCLIA [id number] [address] Hemoglobin (Bld) [Mass/Vol] Normal 13.0-17.0 [facility] Comment on above: Order Comment: Speci men Type: BLOOD SPECIMENOrdering Facility: [facility] Address: [address] [place] [address] Result Comment: Carolina Owens RN informed lab after results autoverified that she rd on the wrong patient. Lab to credit. Nurse to redraw on correct patient.Corrected result: Previously reported as 11.2 g/dL on 08/16/2021 at 4:44 AM EDT. Performed By: #### 5 7021-8 ####[facility] LABORATORYCLIA [id number] [address] IMMATURE GRAN % Normal [facility] Comment on above: Order Comment: Speci men Type: BLOOD SPECIMENOrdering Facility: [facility] Address: [address] [place] [address] Result Comment: Carolina Owens RN informed lab after results autoverified that she rd on the wrong patient. Lab to credit. Nurse to redraw on correct patient.Corrected result: Previously reported as 0.8 % on 08/16/2021 at 4:44 AM EDT. Performed By: #### 5 7021-8 ####[facility] LABORATORYCLIA [id number] [address] STATES OF [facility] IMMATURE GRAN ABS Normal <0.10 [facility] Comment on above: Order Comment: Speci men Type: BLOOD SPECIMENOrdering Facility: [facility] Address: [address] [place] [address] Result Comment: Tati ected result: Previously reported as 0.08 k/uL on 08/16/2021 at 4:44 AM EDT. Performed By: #### 5 7021-8 ####[facility] LABORATORYCLIA [id number] [address] Lymphocytes (Bld) [#/Vol] Normal 1.00-4.00 [facility] Comment on above: Order Comment: Speci men Type: BLOOD SPECIMENOrdering Facility: [facility] Address: [address] [place] [address] Result Comment: Carolina Owens RN informed lab after results autoverified that she rd on the wrong patient. Lab to credit. Nurse to redraw on correct patient.Corrected result: Previously reported as 1.17 k/uL on 08/16/2021 at 4:44 AM EDT. Performed By: #### 5 7021-8 ####[facility] LABORATORYCLIA [id number] [address] Lymphocytes/100 WBC (Bld) Normal [facility] Comment on above: Order Comment: Speci men Type: BLOOD SPECIMENOrdering Facility: [facility] Address: [address] [place] [address] Result Comment: Carolina Owens RN informed lab after results autoverified that she rd on the wrong patient. Lab to credit. Nurse to redraw on correct patient.Corrected result: Previously reported as 12.0 % on 08/16/2021 at 4:44 AM EDT. Performed By: #### 5 7021-8 ####[facility] LABORATORYCLIA [id number] [address] [place] MCHC (RBC) [Mass/Vol] Normal 30.5-36.0 [facility] Comment on above: Order Comment: Speci men Type: BLOOD SPECIMENOrdering Facility: [facility] Address: [address] [place] [address] Result Comment: Carolina Owens RN informed lab after results autoverified that she rd on the wrong patient. Lab to credit. Nurse to redraw on correct patient.Corrected result: Previously reported as 32.7 g/dL on 08/16/2021 at 4:44 AM EDT. Performed By: #### 5 7021-8 ####[facility] LABORATORYCLIA [id number] [address] [place] MCV (RBC) [Entitic vol] Normal 80.0-100.0 [facility] Comment on above: Order Comment: Speci men Type: BLOOD SPECIMENOrdering Facility: [facility] Address: [address] [place] [address] Result Comment: Carolina Owens RN informed lab after results autoverified that she rd on the wrong patient. Lab to credit. Nurse to redraw on correct patient.Corrected result: Previously reported as 94.2 fL on 08/16/2021 at 4:44 AM EDT. Performed By: #### 5 7021-8 ####[facility] LABORATORYCLIA [id number] [address] OF [facility] Monocytes (Bld) [#/Vol] Normal <0.87 [facility] Comment on above: Order Comment: Speci men Type: BLOOD SPECIMENOrdering Facility: [facility] Address: [address] [place] [address] Result Comment: Carolina Owens RN informed lab after results autoverified that she rd on the wrong patient. Lab to credit. Nurse to redraw on correct patient.Corrected result: Previously reported as 0.99 k/uL on 08/16/2021 at 4:44 AM EDT. Performed By: #### 5 7021-8 ####[facility] LABORATORYCLIA [id number] [address] [place] Monocytes/100 WBC (Bld) Normal [facility] Comment on above: Order Comment: Speci men Type: BLOOD SPECIMENOrdering Facility: [facility] Address: [address] [place] [address] Result Comment: Carolina Owens RN informed lab after results autoverified that she rd on the wrong patient. Lab to credit. Nurse to redraw on correct patient.Corrected result: Previously reported as 10.2 % on 08/16/2021 at 4:44 AM EDT. Performed By: #### 5 7021-8 ####[facility] LABORATORYCLIA [id number] [address] [place] Neutrophils (Bld) [#/Vol] Normal 1.45-7.50 [facility] Comment on above: Order Comment: Speci men Type: BLOOD SPECIMENOrdering Facility: [facility] Address: [address] [place] [address] Result Comment: Carolina Owens RN informed lab after results autoverified that she rd on the wrong patient. Lab to credit. Nurse to redraw on correct patient.Corrected result: Previously reported as 7.40 k/uL on 08/16/2021 at 4:44 AM EDT. Performed By: #### 5 7021-8 ####[facility] LABORATORYCLIA [id number] [address] STATES OF [facility] Neutrophils/100 WBC (Bld) Normal [facility] Comment on above: Order Comment: Speci men Type: BLOOD SPECIMENOrdering Facility: [facility] Address: [address] [place] [address] Result Comment: Carolina Owens RN informed lab after results autoverified that she rd on the wrong patient. Lab to credit. Nurse to redraw on correct patient.Corrected result: Previously reported as 75.9 % on 08/16/2021 at 4:44 AM EDT. Performed By: #### 5 7021-8 ####[facility] LABORATORYCLIA [id number] [place] [address] [place] Platelet mean volume (Bld) [Entitic vol] Normal 9.0-12.7 [facility] Comment on above: Order Comment: Speci men Type: BLOOD SPECIMENOrdering Facility: [facility] Address: [address] [place] [address] Result Comment: Carolina Owens RN informed lab after results autoverified that she rd on the wrong patient. Lab to credit. Nurse to redraw on correct patient.Corrected result: Previously reported as 9.1 fL on 08/16/2021 at 4:44 AM EDT. Performed By: #### 5 7021-8 ####[facility] LABORATORYCLIA [id number] [place] [address] [place] Platelets (Bld) [#/Vol] Normal 150-400 [facility] Comment on above: Order Comment: Shira feldman Type: BLOOD SPECIMENOrdering Facility: [facility] Address: [address] [place] [address] Result Comment: Carolina Owens RN informed lab after results autoverified that she rd on the wrong patient. Lab to credit. Nurse to redraw on correct patient.Corrected result: Previously reported as 338 k/uL on 08/16/2021 at 4:44 AM EDT. Performed By: #### 5 7021-8 ####[facility] LABORATORYCLIA [id number] [address] [place] RBC (Bld) [#/Vol] Normal 4.20-6.00 [facility] Comment on above: Order Comment: Shira feldman Type: BLOOD SPECIMENOrdering Facility: [facility] Address: [address] [place] [address] Result Comment: Carolina Owens RN informed lab after results autoverified that she rd on the wrong patient. Lab to credit. Nurse to redraw on correct patient.Corrected result: Previously reported as 3.64 m/uL on 08/16/2021 at 4:44 AM EDT. Performed By: #### 5 7021-8 ####[facility]ORATORYCLIA [id number] [address] [place] WBC (Bld) [#/Vol] Normal 3.70-11.00 [facility] Comment on above: Order Comment: Speci men Type: BLOOD SPECIMENOrdering Facility: [facility] Address: [address] [place] [address] Result Comment: Carolina Owens RN informed lab after results autoverified that she rd on the wrong patient. Lab to credit. Nurse to redraw on correct patient.Corrected result: Previously reported as 9.75 k/uL on 08/16/2021 at 4:44 AM EDT. Performed By: #### 5 7021-8 ####[facility] LABORATORYCLIA [id number] [address] CONSULT PROGon 08-16-2021 CONSULT PROG [facility] Magnesium SerPl-mCncon 08-16 Magnesium [Mass/Vol] 1.8 mg/dL Normal 1.7-2.3 [facility] Comment on above: Order Comment: Speci men Type: BLOOD SPECIMENOrdering Facility: [facility] Address: [address] [place] [address] Performed By: #### 2 4321-2, 12600-6 ####[facility] LABORATORYCLIA [id number] [address] NURSING PROGon 08-16-2021 NURSING PROG Normal [facility] Basic metabolic 2000 panelon 08-15-2021 Anion gap [Moles/Vol] 13 mmol/L Normal 9-18 [facility] Comment on above: Order Comment: Speci men Type: BLOOD SPECIMENOrdering Facility: [facility] Address: [address] [place] [address] Performed By: #### 2 4321-2 ####[facility] LABORATORYCLIA [id number] [address] STATES OF [facility] Calcium [Mass/Vol] 9.0 mg/dL Normal 8.5-10.2 [facility] Comment on above: Order Comment: Speci men Type: BLOOD SPECIMENOrdering Facility: [facility] Address: [address] [place] [address] Performed By: #### 2 4321-2 ####[facility] LABORATORYCLIA [id number] [address] OF [facility] Chloride [Moles/Vol] 95 mmol/L Low 97-105 [facility] Comment on above: Order Comment: Speci men Type: BLOOD SPECIMENOrdering Facility: [facility] Address: [address] [place] [address] Performed By: #### 2 4321-2 ####[facility] LABORATORYCLIA [id number] [address] CO2 [Moles/Vol] 28 mmol/L Normal 22-30 [facility] Comment on above: Order Comment: Speci men Type: BLOOD SPECIMENOrdering Facility: [facility] Address: [address] [place] [address] Performed By: #### 2 4321-2 ####[facility] LABORATORYCLIA [id number] [address] Creatinine [Mass/Vol] 0.50 mg/dL Low 0.73-1.22 [facility] Comment on above: Order Comment: Speci men Type: BLOOD SPECIMENOrdering Facility: [facility] Address: [address] [place] [address] Performed By: #### 2 4321-2 ####[facility] LABORATORYCLIA [id number] [address] ESTIMATED GLOMERULAR FILTRATION RATE 110 mL/min/1.73m??? Normal >=60 [facility] Comment on above: Order Comment: Speci men Type: BLOOD SPECIMENOrdering Facility: [facility] Address: [address] [place] [address] Result Comment: Luzmaria mated Glomerular Filtration Rate [...] By: #### 2 4321-2 ####[facility] LABORATORYCLIA [id number] [place] [address] [place] Glucose [Mass/Vol] 106 mg/dL High 74-99 [facility] Comment on above: Order Comment: Speci men Type: BLOOD SPECIMENOrdering Facility: [facility] Address: [address] [place] [address] Result Comment: The [place] [employer] (ADA) provides guidance for cutoff [...] Standards of Medical Care in Diabetes 2016, [place] [employer]. Diabetes Care. 2016.39(Suppl 1). Performed By: #### 2 4321-2 ####[facility] LABORATORYCLIA [id number] [place] [address] [place] Potassium [Moles/Vol] 3.3 mmol/L Low 3.7-5.1 [facility] Comment on above: Order Comment: Johni men Type: BLOOD SPECIMENOrdering Facility: [facility] Address: [address] [place] [address] Performed By: #### 2 4321-2 ####[facility] LABORATORYCLIA [id number] [place] [address] [place] Sodium [Moles/Vol] 136 mmol/L Normal 136-144 [facility] Comment on above: Order Comment: Speci men Type: BLOOD SPECIMENOrdering Facility: [facility] Address: [address] [place] [address] Performed By: #### 2 4321-2 ####[facility] LABORATORYCLIA [id number] [place] [address] [place] Urea nitrogen [Mass/Vol] 11 mg/dL Normal 9-24 [facility] Comment on above: Order Comment: Speci men Type: BLOOD SPECIMENOrdering Facility: [facility] Address: [address] [place] [address] Performed By: #### 2 4321-2 ####[facility] LABORATORYCLIA [id number] [address] [place] CASE MANAGEMon 08-15-2021 CASE MANAGEM Normal [facility] CBC W Auto Differential pane l (Bld)on 08-15-2021 Basophils (Bld) [#/Vol] 0.03 10*3/uL Normal <0.11 [facility] Comment on above: Order Comment: Speci men Type: BLOOD SPECIMENOrdering Facility: [facility] Address: [address] [place] [address] Performed By: #### 5 7021-8 ####[facility] LABORATORYCLIA [id number] [address] [place] Basophils/100 WBC (Bld) 0.4 % Normal [facility] Comment on above: Order Comment: Speci men Type: BLOOD SPECIMENOrdering Facility: [facility] Address: [address] [place] [address] Performed By: #### 5 7021-8 ####[facility] LABORATORYCLIA [id number] [address] [place] Differential cell count method Nom (Bld) Auto Normal [facility] Comment on above: Order Comment: Speci men Type: BLOOD SPECIMENOrdering Facility: [facility] Address: [address] [place] [address] Performed By: #### 5 7021-8 ####[facility] LABORATORYCLIA [id number] [place] [address] [place] Eosinophils (Bld) [#/Vol] 0.20 10*3/uL Normal <0.46 [facility] Comment on above: Order Comment: Speci men Type: BLOOD SPECIMENOrdering Facility: [facility] Address: [address] [place] [address] Performed By: #### 5 7021-8 ####[facility] LABORATORYCLIA [id number] [address] Eosinophils/100 WBC (Bld) 2.5 % Normal [facility] Comment on above: Order Comment: Speci men Type: BLOOD SPECIMENOrdering Facility: [facility] Address: [address] [place] [address] Performed By: #### 5 7021-8 ####[facility] LABORATORYCLIA [id number] [address] [place] Erythrocyte distribution width (RBC) [Ratio] 16.7 % High 11.5-15.0 [facility] Comment on above: Order Comment: Speci men Type: BLOOD SPECIMENOrdering Facility: [facility] Address: [address] [place] [address] Performed By: #### 5 7021-8 ####[facility] LABORATORYCLIA [id number] [address] Hematocrit (Bld) [Volume fraction] 30.3 % Low 39.0-51.0 [facility] Comment on above: Order Comment: Speci men Type: BLOOD SPECIMENOrdering Facility: [facility] Address: [address] [place] [address] Performed By: #### 5 7021-8 ####[facility] LABORATORYCLIA [id number] [address] [place] Hemoglobin (Bld) [Mass/Vol] 9.4 g/dL Low 13.0-17.0 [facility] Comment on above: Order Comment: Speci men Type: BLOOD SPECIMENOrdering Facility: [facility] Address: [address] [place] [address] Performed By: #### 5 7021-8 ####[facility] LABORATORYCLIA [id number] [address] [place] IMMATURE GRAN % 0.4 % Normal [facility] Comment on above: Order Comment: Speci men Type: BLOOD SPECIMENOrdering Facility: [facility] Address: [address] [place] [address] Performed By: #### 5 7021-8 ####[facility] LABORATORYCLIA [id number] [address] IMMATURE GRAN ABS 0.03 k/uL Normal <0.10 [facility] Comment on above: Order Comment: Speci men Type: BLOOD SPECIMENOrdering Facility: [facility] Address: [address] [place] [address] Performed By: #### 5 7021-8 ####[facility] LABORATORYCLIA [id number] [address] Lymphocytes (Bld) [#/Vol] 1.50 10*3/uL Normal 1.00-4.00 [facility] Comment on above: Order Comment: Speci men Type: BLOOD SPECIMENOrdering Facility: [facility] Address: [address] [place] [address] Performed By: #### 5 7021-8 ####[facility] LABORATORYCLIA [id number] [address] Lymphocytes/100 WBC (Bld) 18.5 % Normal [facility] Comment on above: Order Comment: Speci men Type: BLOOD SPECIMENOrdering Facility: [facility] Address: [address] [place] [address] Performed By: #### 5 7021-8 ####[facility] LABORATORYCLIA [id number] [address] MCH (RBC) [Entitic mass] 29.0 pg Normal 26.0-34.0 [facility] Comment on above: Order Comment: Speci men Type: BLOOD SPECIMENOrdering Facility: [facility] Address: [address] [place] [address] Performed By: #### 5 7021-8 ####[facility] LABORATORYCLIA [id number] [place] [address] [place] MCHC (RBC) [Mass/Vol] 31.0 g/dL Normal 30.5-36.0 [facility] Comment on above: Order Comment: Speci men Type: BLOOD SPECIMENOrdering Facility: [facility] Address: [address] [place] [address] Performed By: #### 5 7021-8 ####[facility] LABORATORYCLIA [id number] [place] [address] [place] MCV (RBC) [Entitic vol] 93.5 fL Normal 80.0-100.0 [facility] Comment on above: Order Comment: Speci men Type: BLOOD SPECIMENOrdering Facility: [facility] Address: [address] [place] [address] Performed By: #### 5 7021-8 ####[facility] LABORATORYCLIA [id number] [address] [place] Monocytes (Bld) [#/Vol] 0.47 10*3/uL Normal <0.87 [facility] Comment on above: Order Comment: Speci men Type: BLOOD SPECIMENOrdering Facility: [facility] Address: [address] [place] [address] Performed By: #### 5 7021-8 ####[facility] LABORATORYCLIA [id number] [address] STATES [facility] Monocytes/100 WBC (Bld) 5.8 % Normal [facility] Comment on above: Order Comment: Speci men Type: BLOOD SPECIMENOrdering Facility: [facility] Address: [address] [place] [address] Performed By: #### 5 7021-8 ####[facility] LABORATORYCLIA [id number] [place] [address] [place] Neutrophils (Bld) [#/Vol] 5.87 10*3/uL Normal 1.45-7.50 [facility] Comment on above: Order Comment: Speci men Type: BLOOD SPECIMENOrdering Facility: [facility] Address: [address] [place] [address] Performed By: #### 5 7021-8 ####[facility] LABORATORYCLIA [id number] [address] Neutrophils/100 WBC (Bld) 72.4 % Normal [facility] Comment on above: Order Comment: Speci men Type: BLOOD SPECIMENOrdering Facility: [facility] Address: [address] [place] [address] Performed By: #### 5 7021-8 ####[facility] LABORATORYCLIA [id number] [address] [place] Nucleated RBC (Bld) [#/Vol] 10*3/uL Normal <0.01 [facility] Comment on above: Order Comment: Speci men Type: BLOOD SPECIMENOrdering Facility: [facility] Address: [address] [place] [address] Performed By: #### 5 7021-8 ####[facility] LABORATORYCLIA [id number] [address] Nucleated RBC/100 WBC (Bld) [Ratio] 0.0 /100 WBC Normal [facility] Comment on above: Order Comment: Speci men Type: BLOOD SPECIMENOrdering Facility: [facility] Address: [address] [place] [address] Performed By: #### 5 7021-8 ####[facility] LABORATORYCLIA [id number] [address] [place] Platelet mean volume (Bld) [Entitic vol] 9.4 fL Normal 9.0-12.7 [facility] Comment on above: Order Comment: Speci men Type: BLOOD SPECIMENOrdering Facility: [facility] Address: [address] [place] [address] Performed By: #### 5 7021-8 ####[facility]ORATORYCLIA [id number] [address] [place] Platelets (Bld) [#/Vol] 290 10*3/uL Normal 150-400 [facility] Comment on above: Order Comment: Speci men Type: BLOOD SPECIMENOrdering Facility: [facility] Address: [address] [place] [address] Performed By: #### 5 7021-8 ####[facility] LABORATORYCLIA [id number] [address] OF [facility] RBC (Bld) [#/Vol] 3.24 10*6/uL Low 4.20-6.00 [facility] Comment on above: Order Comment: Speci men Type: BLOOD SPECIMENOrdering Facility: [facility] Address: [address] [place] [address] Performed By: #### 5 7021-8 ####[facility] LABORATORYCLIA [id number] [address] STATES OF [facility] WBC (Bld) [#/Vol] 8.10 10*3/uL Normal 3.70-11.00 [facility] Comment on above: Order Comment: Speci men Type: BLOOD SPECIMENOrdering Facility: [facility] Address: [address] [place] [address] Performed By: #### 5 7021-8 ####[facility] LABORATORYCLIA [id number] [address] OF [facility] THERAPY NTon 08-15-2021 THERAPY NT Normal [facility] THERAPY NT Normal [facility] THERAPY NT Normal [facility] Basic metabolic 2000 panelon 08-14-2021 Anion gap [Moles/Vol] 10 mmol/L Normal 9-18 [facility] Comment on above: Order Comment: Speci men Type: BLOOD SPECIMENOrdering Facility: [facility] Address: [address] [place] [address] Performed By: #### 2 4321-2 ####[facility] LABORATORYCLIA [id number] [address] Calcium [Mass/Vol] 8.8 mg/dL Normal 8.5-10.2 [facility] Comment on above: Order Comment: Speci men Type: BLOOD SPECIMENOrdering Facility: [facility] Address: [address] [place] [address] Performed By: #### 2 4321-2 ####[facility] LABORATORYCLIA [id number] [place] [address] [place] Chloride [Moles/Vol] 92 mmol/L Low 97-105 [facility] Comment on above: Order Comment: Speci men Type: BLOOD SPECIMENOrdering Facility: [facility] Address: [address] [place] [address] Performed By: #### 2 4321-2 ####[facility] LABORATORYCLIA [id number] [place] [address] [place] CO2 [Moles/Vol] 29 mmol/L Normal 22-30 [facility] Comment on above: Order Comment: Speci men Type: BLOOD SPECIMENOrdering Facility: [facility] Address: [address] [place] [address] Performed By: #### 2 4321-2 ####[facility] LABORATORYCLIA [id number] [address] [place] [facility] Creatinine [Mass/Vol] 0.49 mg/dL Low 0.73-1.22 [facility] Comment on above: Order Comment: Speci men Type: BLOOD SPECIMENOrdering Facility: [facility] Address: [address] [place] [address] Performed By: #### 2 4321-2 ####[facility] LABORATORYCLIA [id number] [address] OF [facility] ESTIMATED GLOMERULAR FILTRATION RATE 111 mL/min/1.73m??? Normal >=60 [facility] Comment on above: Order Comment: Speci men Type: BLOOD SPECIMENOrdering Facility: [facility] Address: [address] [place] [address] Result Comment: Luzmaria mated Glomerular Filtration Rate [...] By: #### 2 4321-2 ####[facility] LABORATORYCLIA [id number] [place] [address] [place] Glucose [Mass/Vol] 104 mg/dL High 74-99 [facility] Comment on above: Order Comment: Shira feldman Type: BLOOD SPECIMENOrdering Facility: [facility] Address: [address] [place] [address] Result Comment: The [place] [employer] (ADA) provides guidance for cutoff [...] Standards of Medical Care in Diabetes 2016, [place] [employer]. Diabetes Care. 2016.39(Suppl 1). Performed By: #### 2 4321-2 ####[facility] LABORATORYCLIA [id number] [place] [address] [place] Potassium [Moles/Vol] 3.1 mmol/L Low 3.7-5.1 [facility] Comment on above: Order Comment: Shira feldman Type: BLOOD SPECIMENOrdering Facility: [facility] Address: [address] [address] Performed By: #### 2 4321-2 ####[facility] LABORATORYCLIA [id number] [place] [address] [place] Sodium [Moles/Vol] 131 mmol/L Low 136-144 [facility] Comment on above: Order Comment: Shira feldman Type: BLOOD SPECIMENOrdering Facility: [facility] Address: [address] [address] Performed By: #### 2 4321-2 ####[facility] LABORATORYCLIA [id number] [address] [place] Urea nitrogen [Mass/Vol] 13 mg/dL Normal 9-24 [facility] Comment on above: Order Comment: Speci men Type: BLOOD SPECIMENOrdering Facility: [facility] Address: [address] [place] [address] Performed By: #### 2 4321-2 ####[facility] LABORATORYCLIA [id number] [address] [place] CBC W Auto Differential pane l (Bld)on 08-14-2021 Basophils (Bld) [#/Vol] 10*3/uL Normal <0.11 [facility] Comment on above: Order Comment: Speci men Type: BLOOD SPECIMENOrdering Facility: [facility] Address: [address] [place] [address] Performed By: #### 5 7021-8 ####[facility] LABORATORYCLIA [id number] [address] [place] Basophils/100 WBC (Bld) 0.2 % Normal [facility] Comment on above: Order Comment: Speci men Type: BLOOD SPECIMENOrdering Facility: [facility] Address: [address] [place] [address] Performed By: #### 5 7021-8 ####[facility] LABORATORYCLIA [id number] [address] Differential cell count method Nom (Bld) Auto Normal [facility] Comment on above: Order Comment: Speci men Type: BLOOD SPECIMENOrdering Facility: [facility] Address: [address] [place] [address] Performed By: #### 5 7021-8 ####[facility] LABORATORYCLIA [id number] [address] [place] Eosinophils (Bld) [#/Vol] 0.23 10*3/uL Normal <0.46 [facility] Comment on above: Order Comment: Speci men Type: BLOOD SPECIMENOrdering Facility: [facility] Address: [address] [place] [address] Performed By: #### 5 7021-8 ####[facility] LABORATORYCLIA [id number] [address] Eosinophils/100 WBC (Bld) 2.7 % Normal [facility] Comment on above: Order Comment: Speci men Type: BLOOD SPECIMENOrdering Facility: [facility] Address: [address] [place] [address] Performed By: #### 5 7021-8 ####[facility] LABORATORYCLIA [id number] [address] Erythrocyte distribution width (RBC) [Ratio] 16.6 % High 11.5-15.0 [facility] Comment on above: Order Comment: Speci men Type: BLOOD SPECIMENOrdering Facility: [facility] Address: [address] [place] [address] Performed By: #### 5 7021-8 ####[facility] LABORATORYCLIA [id number] [address] Hematocrit (Bld) [Volume fraction] 28.6 % Low 39.0-51.0 [facility] Comment on above: Order Comment: Speci men Type: BLOOD SPECIMENOrdering Facility: [facility] Address: [address] [place] [address] Performed By: #### 5 7021-8 ####[facility] LABORATORYCLIA [id number] [address] Hemoglobin (Bld) [Mass/Vol] 9.0 g/dL Low 13.0-17.0 [facility] Comment on above: Order Comment: Speci men Type: BLOOD SPECIMENOrdering Facility: [facility] Address: [address] [place] [address] Performed By: #### 5 7021-8 ####[facility] LABORATORYCLIA [id number] [address] [place] IMMATURE GRAN % 0.2 % Normal [facility] Comment on above: Order Comment: Speci men Type: BLOOD SPECIMENOrdering Facility: [facility] Address: [address] [place] [address] Performed By: #### 5 7021-8 ####[facility] LABORATORYCLIA [id number] [address] STATES [facility] IMMATURE GRAN ABS <0.03 Normal <0.10 [facility] Comment on above: Order Comment: Speci men Type: BLOOD SPECIMENOrdering Facility: [facility] Address: [address] [place] [address] Performed By: #### 5 7021-8 ####[facility] LABORATORYCLIA [id number] [address] Lymphocytes (Bld) [#/Vol] 1.33 10*3/uL Normal 1.00-4.00 [facility] Comment on above: Order Comment: Speci men Type: BLOOD SPECIMENOrdering Facility: [facility] Address: [address] [place] [address] Performed By: #### 5 7021-8 ####[facility] LABORATORYCLIA [id number] [address] Lymphocytes/100 WBC (Bld) 15.6 % Normal [facility] Comment on above: Order Comment: Speci men Type: BLOOD SPECIMENOrdering Facility: [facility] Address: [address] [place] [address] Performed By: #### 5 7021-8 ####[facility] LABORATORYCLIA [id number] [address] STATES [facility] MCH (RBC) [Entitic mass] 29.0 pg Normal 26.0-34.0 [facility] Comment on above: Order Comment: Speci men Type: BLOOD SPECIMENOrdering Facility: [facility] Address: [address] [place] [address] Performed By: #### 5 7021-8 ####[facility] LABORATORYCLIA [id number] [address] MCHC (RBC) [Mass/Vol] 31.5 g/dL Normal 30.5-36.0 [facility] Comment on above: Order Comment: Speci men Type: BLOOD SPECIMENOrdering Facility: [facility] Address: [address] [place] [address] Performed By: #### 5 7021-8 ####[facility] LABORATORYCLIA [id number] [address] [place] MCV (RBC) [Entitic vol] 92.3 fL Normal 80.0-100.0 [facility] Comment on above: Order Comment: Speci men Type: BLOOD SPECIMENOrdering Facility: [facility] Address: [address] [place] [address] Performed By: #### 5 7021-8 ####[facility] LABORATORYCLIA [id number] [address] [place] Monocytes (Bld) [#/Vol] 0.44 10*3/uL Normal <0.87 [facility] Comment on above: Order Comment: Speci men Type: BLOOD SPECIMENOrdering Facility: [facility] Address: [address] [place] [address] Performed By: #### 5 7021-8 ####[facility] LABORATORYCLIA [id number] [address] Monocytes/100 WBC (Bld) 5.2 % Normal [facility] Comment on above: Order Comment: Speci men Type: BLOOD SPECIMENOrdering Facility: [facility] Address: [address] [place] [address] Performed By: #### 5 7021-8 ####[facility] LABORATORYCLIA [id number] [address] [place] Neutrophils (Bld) [#/Vol] 6.46 10*3/uL Normal 1.45-7.50 [facility] Comment on above: Order Comment: Speci men Type: BLOOD SPECIMENOrdering Facility: [facility] Address: [address] [place] [address] Performed By: #### 5 7021-8 ####[facility]ATORYCLIA [id number] [address] Neutrophils/100 WBC (Bld) 76.1 % Normal [facility] Comment on above: Order Comment: Speci men Type: BLOOD SPECIMENOrdering Facility: [facility] Address: [address] [place] [address] Performed By: #### 5 7021-8 ####[facility]ATORYCLIA [id number] [address] [place] Nucleated RBC (Bld) [#/Vol] 10*3/uL Normal <0.01 [facility] Comment on above: Order Comment: Speci men Type: BLOOD SPECIMENOrdering Facility: [facility] Address: [address] [place] [address] Performed By: #### 5 7021-8 ####[facility] LABORATORYCLIA [id number] [address] Nucleated RBC/100 WBC (Bld) [Ratio] 0.0 /100 WBC Normal [facility] Comment on above: Order Comment: Speci men Type: BLOOD SPECIMENOrdering Facility: [facility] Address: [address] [place] [address] Performed By: #### 5 7021-8 ####[facility] LABORATORYCLIA [id number] [address] [place] Platelet mean volume (Bld) [Entitic vol] 9.5 fL Normal 9.0-12.7 [facility] Comment on above: Order Comment: Speci men Type: BLOOD SPECIMENOrdering Facility: [facility] Address: [address] [place] [address] Performed By: #### 5 7021-8 ####[facility]ORATORYCLIA [id number] [address] [place] Platelets (Bld) [#/Vol] 247 10*3/uL Normal 150-400 [facility] Comment on above: Order Comment: Speci men Type: BLOOD SPECIMENOrdering Facility: [facility] Address: [address] [place] [address] Performed By: #### 5 7021-8 ####[facility] LABORATORYCLIA [id number] [address] [place] RBC (Bld) [#/Vol] 3.10 10*6/uL Low 4.20-6.00 [facility] Comment on above: Order Comment: Speci men Type: BLOOD SPECIMENOrdering Facility: [facility] Address: [address] [place] [address] Performed By: #### 5 7021-8 ####[facility] LABORATORYCLIA [id number] [address] OF [facility] WBC (Bld) [#/Vol] 8.50 10*3/uL Normal 3.70-11.00 [facility] Comment on above: Order Comment: Speci men Type: BLOOD SPECIMENOrdering Facility: [facility] Address: [address] [place] [address] Performed By: #### 5 7021-8 ####[facility] LABORATORYCLIA [id number] [address] [place] CONSULTon 08-14-2021 CONSULT Normal [facility] NURSING PROGon 08-14-2021 NURSING PROG Normal [facility] CBC W Auto Differential pane l (Bld)on 08-13-2021 Basophils (Bld) [#/Vol] 10*3/uL Normal <0.11 [facility] Comment on above: Order Comment: Speci men Type: BLOOD SPECIMENOrdering Facility: [facility] Address: [address] [place] [address] Performed By: #### 5 7021-8 ####[facility] LABORATORYCLIA [id number] [address] STATES OF [facility] Basophils/100 WBC (Bld) 0.2 % Normal [facility] Comment on above: Order Comment: Speci men Type: BLOOD SPECIMENOrdering Facility: [facility] Address: [address] [address] Performed By: #### 5 7021-8 ####[facility] LABORATORYCLIA [id number] [address] Differential cell count method Nom (Bld) Auto Normal [facility] Comment on above: Order Comment: Speci men Type: BLOOD SPECIMENOrdering Facility: [facility] Address: [address] [place] [address] Performed By: #### 5 7021-8 ####[facility] LABORATORYCLIA [id number] [address] Eosinophils (Bld) [#/Vol] 0.31 10*3/uL Normal <0.46 [facility] Comment on above: Order Comment: Speci men Type: BLOOD SPECIMENOrdering Facility: [facility] Address: [address] [place] [address] Performed By: #### 5 7021-8 ####[facility] LABORATORYCLIA [id number] [address] Eosinophils/100 WBC (Bld) 3.7 % Normal [facility] Comment on above: Order Comment: Speci men Type: BLOOD SPECIMENOrdering Facility: [facility] Address: [address] [place] [address] Performed By: #### 5 7021-8 ####[facility] LABORATORYCLIA [id number] [address] Erythrocyte distribution width (RBC) [Ratio] 16.6 % High 11.5-15.0 [facility] Comment on above: Order Comment: Speci men Type: BLOOD SPECIMENOrdering Facility: [facility] Address: [address] [place] [address] Performed By: #### 5 7021-8 ####[facility] LABORATORYCLIA [id number] [address] [place] Hematocrit (Bld) [Volume fraction] 27.5 % Low 39.0-51.0 [facility] Comment on above: Order Comment: Speci men Type: BLOOD SPECIMENOrdering Facility: [facility] Address: [address] [place] [address] Performed By: #### 5 7021-8 ####[facility] LABORATORYCLIA [id number] [address] OF [facility] Hemoglobin (Bld) [Mass/Vol] 8.4 g/dL Low 13.0-17.0 [facility] Comment on above: Order Comment: Speci men Type: BLOOD SPECIMENOrdering Facility: [facility] Address: [address] [place] [address] Performed By: #### 5 7021-8 ####[facility] LABORATORYCLIA [id number] [address] IMMATURE GRAN % 0.5 % Normal [facility] Comment on above: Order Comment: Speci men Type: BLOOD SPECIMENOrdering Facility: [facility] Address: [address] [place] [address] Performed By: #### 5 7021-8 ####[facility] LABORATORYCLIA [id number] [address] IMMATURE GRAN ABS 0.04 k/uL Normal <0.10 [facility] Comment on above: Order Comment: Speci men Type: BLOOD SPECIMENOrdering Facility: [facility] Address: [address] [place] [address] Performed By: #### 5 7021-8 ####[facility] LABORATORYCLIA [id number] [address] [place] Lymphocytes (Bld) [#/Vol] 1.55 10*3/uL Normal 1.00-4.00 [facility] Comment on above: Order Comment: Speci men Type: BLOOD SPECIMENOrdering Facility: [facility] Address: [address] [place] [address] Performed By: #### 5 7021-8 ####[facility] LABORATORYCLIA [id number] [place] [address] Lymphocytes/100 WBC (Bld) 18.7 % Normal [facility] Comment on above: Order Comment: Speci men Type: BLOOD SPECIMENOrdering Facility: [facility] Address: [address] [place] [address] Performed By: #### 5 7021-8 ####[facility] LABORATORYCLIA [id number] [address] MCH (RBC) [Entitic mass] 28.9 pg Normal 26.0-34.0 [facility] Comment on above: Order Comment: Speci men Type: BLOOD SPECIMENOrdering Facility: [facility] Address: [address] [place] [address] Performed By: #### 5 7021-8 ####[facility] LABORATORYCLIA [id number] [address] OF [facility] MCHC (RBC) [Mass/Vol] 30.5 g/dL Normal 30.5-36.0 [facility] Comment on above: Order Comment: Speci men Type: BLOOD SPECIMENOrdering Facility: [facility] Address: [address] [place] [address] Performed By: #### 5 7021-8 ####[facility] LABORATORYCLIA [id number] [address] MCV (RBC) [Entitic vol] 94.5 fL Normal 80.0-100.0 [facility] Comment on above: Order Comment: Speci men Type: BLOOD SPECIMENOrdering Facility: [facility] Address: [address] [place] [address] Performed By: #### 5 7021-8 ####[facility] LABORATORYCLIA [id number] [address] Monocytes (Bld) [#/Vol] 0.47 10*3/uL Normal <0.87 [facility] Comment on above: Order Comment: Speci men Type: BLOOD SPECIMENOrdering Facility: [facility] Address: [address] [place] [address] Performed By: #### 5 7021-8 ####[facility]ATORYCLIA [id number] [address] [place] Monocytes/100 WBC (Bld) 5.7 % Normal [facility] Comment on above: Order Comment: Speci men Type: BLOOD SPECIMENOrdering Facility: [facility] Address: [address] [place] [address] Performed By: #### 5 7021-8 ####[facility]ORATORYCLIA [id number] [place] [address] [place] Neutrophils (Bld) [#/Vol] 5.92 10*3/uL Normal 1.45-7.50 [facility] Comment on above: Order Comment: Speci men Type: BLOOD SPECIMENOrdering Facility: [facility] Address: [address] [place] [address] Performed By: #### 5 7021-8 ####[facility] LABORATORYCLIA [id number] [address] Neutrophils/100 WBC (Bld) 71.2 % Normal [facility] Comment on above: Order Comment: Speci men Type: BLOOD SPECIMENOrdering Facility: [facility] Address: [address] [place] [address] Performed By: #### 5 7021-8 ####[facility] LABORATORYCLIA [id number] [address] [place] Nucleated RBC (Bld) [#/Vol] 10*3/uL Normal <0.01 [facility] Comment on above: Order Comment: Speci men Type: BLOOD SPECIMENOrdering Facility: [facility] Address: [address] [place] [address] Performed By: #### 5 7021-8 ####[facility]ORATORYCLIA [id number] [address] [place] Nucleated RBC/100 WBC (Bld) [Ratio] 0.0 /100 WBC Normal [facility] Comment on above: Order Comment: Speci men Type: BLOOD SPECIMENOrdering Facility: [facility] Address: [address] [place] [address] Performed By: #### 5 7021-8 ####[facility] LABORATORYCLIA [id number] [address] Platelet mean volume (Bld) [Entitic vol] 9.9 fL Normal 9.0-12.7 [facility] Comment on above: Order Comment: Speci men Type: BLOOD SPECIMENOrdering Facility: [facility] Address: [address] [place] [address] Performed By: #### 5 7021-8 ####[facility] LABORATORYCLIA [id number] [address] [place] Platelets (Bld) [#/Vol] 203 10*3/uL Normal 150-400 [facility] Comment on above: Order Comment: Speci men Type: BLOOD SPECIMENOrdering Facility: [facility] Address: [address] [place] [address] Performed By: #### 5 7021-8 ####[facility] LABORATORYCLIA [id number] [address] [place] RBC (Bld) [#/Vol] 2.91 10*6/uL Low 4.20-6.00 [facility] Comment on above: Order Comment: Speci men Type: BLOOD SPECIMENOrdering Facility: [facility] Address: [address] [place], [place] [address] Performed By: #### 5 7021-8 ####[facility] LABORATORYCLIA [id number] [address] [place] WBC (Bld) [#/Vol] 8.31 10*3/uL Normal 3.70-11.00 [facility] Comment on above: Order Comment: Speci men Type: BLOOD SPECIMENOrdering Facility: [facility] Address: [address] [place] [address] Performed By: #### 5 7021-8 ####[facility] LABORATORYCLIA [id number] [place] [address] [place] aPTT PPPon 08-13-2021 aPTT Coag (PPP) [Time] 69.7 s High 23.0-32.4 [facility] Comment on above: Order Comment: Speci men Type: BLOOD SPECIMENOrdering Facility: [facility] Address: [address] [place] [address] Performed By: #### 1 4979-9 ####[facility] LABORATORYCLIA [id number] [address] [place] aPTT Coag (PPP) [Time] 70.6 s High 23.0-32.4 [facility] Comment on above: Order Comment: Speci men Type: BLOOD SPECIMENOrdering Facility: [facility] Address: [address] [place] [address] Performed By: #### 1 4979-9 ####[facility] LABORATORYCLIA [id number] [place] [address] [place] ALLIED HEALTHon 08-12-2021 ALLIED HEALTH Normal [facility] ALLIED HEALTH Normal [facility] Basic metabolic 2000 panelon 08-12-2021 Anion gap [Moles/Vol] 7 mmol/L Low 9-18 [place] [facility] Comment on above: Order Comment: Speci men Type: BLOOD SPECIMENOrdering Facility: [facility] Address: [address] [place] [address] Performed By: #### 2 4321-2, , 2776-05 ####[facility] LABORATORYCLIA [id number] [address] STATES OF [facility] Calcium [Mass/Vol] 8.8 mg/dL Normal 8.5-10.2 [facility] Comment on above: Order Comment: Speci men Type: BLOOD SPECIMENOrdering Facility: [facility] Address: [address] [place] [address] Performed By: #### 2 4321-2, , 2776-05 ####[facility] LABORATORYCLIA [id number] [place], [place] [address] [place] [address] [place] Chloride [Moles/Vol] 96 mmol/L Low 97-105 [facility] Comment on above: Order Comment: Speci men Type: BLOOD SPECIMENOrdering Facility: [facility] Address: [address] [place] [address] Performed By: #### 2 4321-2, 58832-0, 2776- ####[facility] LABORATORYCLIA [id number] [address] STATES OF [facility] CO2 [Moles/Vol] 32 mmol/L High 22-30 [facility] Comment on above: Order Comment: Speci men Type: BLOOD SPECIMENOrdering Facility: [facility] Address: [address] [place] [address] Performed By: #### 2 4321-2, , 2776-05 ####[facility] LABORATORYCLIA [id number] [address] OF [facility] Creatinine [Mass/Vol] 0.52 mg/dL Low 0.73-1.22 [facility] Comment on above: Order Comment: Speci men Type: BLOOD SPECIMENOrdering Facility: [facility] Address: [address] [place] [address] Performed By: #### 2 4321-2, , 2776-05 ####[facility] LABORATORYCLIA [id number] [address] ESTIMATED GLOMERULAR FILTRATION RATE 109 mL/min/1.73m??? Normal >=60 [facility] Comment on above: Order Comment: Speci men Type: BLOOD SPECIMENOrdering Facility: [facility] Address: [address] [place] [address] Result Comment: Luzmaria mated Glomerular Filtration Rate [...] 2 4321-2, , 2776-05 ####[facility] LABORATORYCLIA [id number] [place] [address] [place] Glucose [Mass/Vol] 119 mg/dL High 74-99 [facility] Comment on above: Order Comment: Speci men Type: BLOOD SPECIMENOrdering Facility: [facility] Address: [address] [place], [place] [id number] Result Comment: The [place] [employer] (ADA) provides guidance for cutoff [...] Standards of Medical Care in Diabetes 2016, [place] [employer]. Diabetes Care. 2016.39(Suppl 1). Performed By: #### 2 4321-2, , 2776-05 ####[facility] LABORATORYCLIA [id number] [place] [address] [place] Potassium [Moles/Vol] 3.7 mmol/L Normal 3.7-5.1 [facility] Comment on above: Order Comment: Speci men Type: BLOOD SPECIMENOrdering Facility: [facility] Address: [address] [id number] Performed By: #### 2 4321-2, , 2776-05 ####[facility] LABORATORYIA [id number] [place] [address] [place] Sodium [Moles/Vol] 135 mmol/L Low 136-144 [facility] Comment on above: Order Comment: Shira francia Type: BLOOD SPECIMENOrdering Facility: [facility] Address: [address] [id number] Performed By: #### 2 4321-2, 67370-9, 277-1 ####[facility] LABORATORYCLIA [id number] [address] STATES [facility] Urea nitrogen [Mass/Vol] 20 mg/dL Normal 9-24 [facility] Comment on above: Order Comment: Speci men Type: BLOOD SPECIMENOrdering Facility: [facility] Address: [address] [place] [address] Performed By: #### 2 4321-2, , 2776-05 ####[facility] LABORATORYCLIA [id number] [address] OF [facility] CASE MANAGEMon 08-12-2021 CASE MANAGEM Normal [facility] CBC W Auto Differential pane l (Bld)on 08-12-2021 Basophils (Bld) [#/Vol] 0.04 10*3/uL Normal <0.11 [facility] Comment on above: Order Comment: Speci men Type: BLOOD SPECIMENOrdering Facility: [facility] Address: [address] [place] [address] Performed By: #### 5 7021-8 ####[facility] LABORATORYCLIA [id number] [address] Basophils/100 WBC (Bld) 0.5 % Normal [facility] Comment on above: Order Comment: Speci men Type: BLOOD SPECIMENOrdering Facility: [facility] Address: [address] [place] [address] Performed By: #### 5 7021-8 ####[facility] LABORATORYCLIA [id number] [address] [place] Differential cell count method Nom (Bld) Auto Normal [facility] Comment on above: Order Comment: Speci men Type: BLOOD SPECIMENOrdering Facility: [facility] Address: [address] [place] [address] Performed By: #### 5 7021-8 ####[facility] LABORATORYCLIA [id number] [address] [place] Eosinophils (Bld) [#/Vol] 0.19 10*3/uL Normal <0.46 [facility] Comment on above: Order Comment: Speci men Type: BLOOD SPECIMENOrdering Facility: [facility] Address: [address] [place] [address] Performed By: #### 5 7021-8 ####[facility] LABORATORYCLIA [id number] [address] [place] Eosinophils/100 WBC (Bld) 2.3 % Normal [facility] Comment on above: Order Comment: Speci men Type: BLOOD SPECIMENOrdering Facility: [facility] Address: [address] [place] [address] Performed By: #### 5 7021-8 ####[facility] LABORATORYCLIA [id number] [address] Erythrocyte distribution width (RBC) [Ratio] 17.1 % High 11.5-15.0 [facility] Comment on above: Order Comment: Speci men Type: BLOOD SPECIMENOrdering Facility: [facility] Address: [address] [place] [address] Performed By: #### 5 7021-8 ####[facility] LABORATORYCLIA [id number] [address] OF [place] Hematocrit (Bld) [Volume fraction] 25.3 % Low 39.0-51.0 [facility] Comment on above: Order Comment: Speci men Type: BLOOD SPECIMENOrdering Facility: [facility] Address: [address] [place] [address] Performed By: #### 5 7021-8 ####[facility] LABORATORYCLIA [id number] [address] [place] Hemoglobin (Bld) [Mass/Vol] 7.9 g/dL Low 13.0-17.0 [facility] Comment on above: Order Comment: Speci men Type: BLOOD SPECIMENOrdering Facility: [facility] Address: [address] [place] [address] Performed By: #### 5 7021-8 ####[facility] LABORATORYCLIA [id number] [address] IMMATURE GRAN % 0.5 % Normal [facility] Comment on above: Order Comment: Speci men Type: BLOOD SPECIMENOrdering Facility: [facility] Address: [address] [place] [address] Performed By: #### 5 7021-8 ####[facility] LABORATORYCLIA [id number] [address] IMMATURE GRAN ABS 0.04 k/uL Normal <0.10 [facility] Comment on above: Order Comment: Speci men Type: BLOOD SPECIMENOrdering Facility: [facility] Address: [address] [place] [address] Performed By: #### 5 7021-8 ####[facility] LABORATORYCLIA [id number] [address] Lymphocytes (Bld) [#/Vol] 1.69 10*3/uL Normal 1.00-4.00 [facility] Comment on above: Order Comment: Speci men Type: BLOOD SPECIMENOrdering Facility: [facility] Address: [address] [place] [address] Performed By: #### 5 7021-8 ####[facility] LABORATORYCLIA [id number] [address] Lymphocytes/100 WBC (Bld) 20.1 % Normal [facility] Comment on above: Order Comment: Speci men Type: BLOOD SPECIMENOrdering Facility: [facility] Address: [address] [place] [address] Performed By: #### 5 7021-8 ####[facility] LABORATORYCLIA [id number] [address] MCH (RBC) [Entitic mass] 28.5 pg Normal 26.0-34.0 [facility] Comment on above: Order Comment: Speci men Type: BLOOD SPECIMENOrdering Facility: [facility] Address: [address] [place] [address] Performed By: #### 5 7021-8 ####[facility] LABORATORYCLIA [id number] [address] STATES [facility] MCHC (RBC) [Mass/Vol] 31.2 g/dL Normal 30.5-36.0 [facility] Comment on above: Order Comment: Speci men Type: BLOOD SPECIMENOrdering Facility: [facility] Address: [address] [place] [address] Performed By: #### 5 7021-8 ####[facility] LABORATORYCLIA [id number] [address] OF [facility] MCV (RBC) [Entitic vol] 91.3 fL Normal 80.0-100.0 [facility] Comment on above: Order Comment: Speci men Type: BLOOD SPECIMENOrdering Facility: [facility] Address: [address] [place] [address] Performed By: #### 5 7021-8 ####[facility] LABORATORYCLIA [id number] [address] STATES OF [facility] Monocytes (Bld) [#/Vol] 0.53 10*3/uL Normal <0.87 [facility] Comment on above: Order Comment: Speci men Type: BLOOD SPECIMENOrdering Facility: [facility] Address: [address] [place] [address] Performed By: #### 5 7021-8 ####[facility] LABORATORYCLIA [id number] [address] Monocytes/100 WBC (Bld) 6.3 % Normal [facility] Comment on above: Order Comment: Speci men Type: BLOOD SPECIMENOrdering Facility: [facility] Address: [address] [place] [address] Performed By: #### 5 7021-8 ####[facility] LABORATORYCLIA [id number] [address] [place] Neutrophils (Bld) [#/Vol] 5.90 10*3/uL Normal 1.45-7.50 [facility] Comment on above: Order Comment: Speci men Type: BLOOD SPECIMENOrdering Facility: [facility] Address: [address] [place] [address] Performed By: #### 5 7021-8 ####[facility] LABORATORYCLIA [id number] [address] Neutrophils/100 WBC (Bld) 70.3 % Normal [facility] Comment on above: Order Comment: Speci men Type: BLOOD SPECIMENOrdering Facility: [facility] Address: [address] [place] [address] Performed By: #### 5 7021-8 ####[facility] LABORATORYCLIA [id number] [address] [place] Nucleated RBC (Bld) [#/Vol] 10*3/uL Normal <0.01 [facility] Comment on above: Order Comment: Speci men Type: BLOOD SPECIMENOrdering Facility: [facility] Address: [address] [place] [address] Performed By: #### 5 7021-8 ####[facility] LABORATORYCLIA [id number] [address] Nucleated RBC/100 WBC (Bld) [Ratio] 0.0 /100 WBC Normal [facility] Comment on above: Order Comment: Speci men Type: BLOOD SPECIMENOrdering Facility: [facility] Address: [address] [place] [address] Performed By: #### 5 7021-8 ####[facility] LABORATORYCLIA [id number] [address] [place] Platelet mean volume (Bld) [Entitic vol] 9.8 fL Normal 9.0-12.7 [facility] Comment on above: Order Comment: Speci men Type: BLOOD SPECIMENOrdering Facility: [facility] Address: [address] [place] [address] Performed By: #### 5 7021-8 ####[facility] LABORATORYCLIA [id number] [address] [place] Platelets (Bld) [#/Vol] 164 10*3/uL Normal 150-400 [facility] Comment on above: Order Comment: Speci men Type: BLOOD SPECIMENOrdering Facility: [facility] Address: [address] [place] [address] Performed By: #### 5 7021-8 ####[facility] LABORATORYCLIA [id number] [place] [address] [place] RBC (Bld) [#/Vol] 2.77 10*6/uL Low 4.20-6.00 [facility] Comment on above: Order Comment: Speci men Type: BLOOD SPECIMENOrdering Facility: [facility] Address: [address] [place] [address] Performed By: #### 5 7021-8 ####[facility] LABORATORYCLIA [id number] [address] OF [facility] WBC (Bld) [#/Vol] 8.39 10*3/uL Normal 3.70-11.00 [facility] Comment on above: Order Comment: Speci men Type: BLOOD SPECIMENOrdering Facility: [facility] Address: [address] [place] [address] Performed By: #### 5 7021-8 ####[facility] LABORATORYCLIA [id number] [address] [place] CT BRAIN WO IVCONon 08-13-19 CT BRAIN WO IVCON Normal [facility] CT BRAIN WO IVCON Normal [facility] Magnesium SerPl-mCncon 08-12 Magnesium [Mass/Vol] 2.0 mg/dL Normal 1.7-2.3 [facility] Comment on above: Order Comment: Speci men Type: BLOOD SPECIMENOrdering Facility: [facility] Address: [address] [place] [address] Performed By: #### 2 4321-2, 98087-2, 2777-1 ####[facility] LABORATORYCLIA [id number] [address] Phosphate SerPl-mCncon 08-12 Phosphate [Mass/Vol] 2.9 mg/dL Normal 2.7-4.8 [facility] Comment on above: Order Comment: Speci men Type: BLOOD SPECIMENOrdering Facility: [facility] Address: [address] [place] [address] Performed By: #### 2 4321-2, 09355-9, 2777-1 ####[facility] LABORATORYCLIA [id number] [address] THERAPY NTon 08-12-2021 THERAPY NT Normal [facility] THERAPY NT Normal [facility] aPTT PPPon 08-12-2021 aPTT Coag (PPP) [Time] 94.2 s High 23.0-32.4 [facility] Comment on above: Order Comment: Speci men Type: BLOOD SPECIMENOrdering Facility: [facility] Address: [address] [place] [address] Performed By: #### 1 4979-9 ####[facility] LABORATORYCLIA [id number] [address] aPTT Coag (PPP) [Time] 84.4 s High 23.0-32.4 [facility] Comment on above: Order Comment: Speci men Type: BLOOD SPECIMENOrdering Facility: [facility] Address: [address] [place] [address] Performed By: #### 1 4979-9 ####[facility] LABORATORYCLIA [id number] [address] aPTT Coag (PPP) [Time] 71.3 s High 23.0-32.4 [facility] Comment on above: Order Comment: Speci men Type: BLOOD SPECIMENOrdering Facility: [facility] Address: [address] [place] [address] Performed By: #### 1 4979-9 ####[facility] LABORATORYCLIA [id number] [place] [address] [place] ALLIED HEALTHon 08-11-2021 ALLIED HEALTH Normal [facility] CBC W Auto Differential pane l (Bld)on 08-11-2021 Basophils (Bld) [#/Vol] 10*3/uL Normal <0.11 [facility] Comment on above: Order Comment: Speci men Type: BLOOD SPECIMENOrdering Facility: [facility] Address: [address] [place] [address] Performed By: #### 5 7021-8 ####[facility] LABORATORYCLIA [id number] [address] [place] Basophils/100 WBC (Bld) 0.2 % Normal [facility] Comment on above: Order Comment: Speci men Type: BLOOD SPECIMENOrdering Facility: [facility] Address: [address] [place] [address] Performed By: #### 5 7021-8 ####[facility] LABORATORYCLIA [id number] [address] [place] Differential cell count method Nom (Bld) Auto Normal [facility] Comment on above: Order Comment: Speci men Type: BLOOD SPECIMENOrdering Facility: [facility] Address: [address] [place] [address] Performed By: #### 5 7021-8 ####[facility] LABORATORYCLIA [id number] [place] [address] [place] Eosinophils (Bld) [#/Vol] 0.16 10*3/uL Normal <0.46 [facility] Comment on above: Order Comment: Speci men Type: BLOOD SPECIMENOrdering Facility: [facility] Address: [address] [place] [address] Performed By: #### 5 7021-8 ####[facility] LABORATORYCLIA [id number] [address] [place] Eosinophils/100 WBC (Bld) 1.8 % Normal [facility] Comment on above: Order Comment: Speci men Type: BLOOD SPECIMENOrdering Facility: [facility] Address: [address] [place] [address] Performed By: #### 5 7021-8 ####[facility] LABORATORYCLIA [id number] [address] Erythrocyte distribution width (RBC) [Ratio] 17.3 % High 11.5-15.0 [facility] Comment on above: Order Comment: Speci men Type: BLOOD SPECIMENOrdering Facility: [facility] Address: [address] [place] [address] Performed By: #### 5 7021-8 ####[facility] LABORATORYCLIA [id number] [address] Hematocrit (Bld) [Volume fraction] 26.6 % Low 39.0-51.0 [facility] Comment on above: Order Comment: Speci men Type: BLOOD SPECIMENOrdering Facility: [facility] Address: [address] [place] [address] Performed By: #### 5 7021-8 ####[facility] LABORATORYCLIA [id number] [address] Hemoglobin (Bld) [Mass/Vol] 8.2 g/dL Low 13.0-17.0 [facility] Comment on above: Order Comment: Speci men Type: BLOOD SPECIMENOrdering Facility: [facility] Address: [address] [place] [address] Performed By: #### 5 7021-8 ####[facility] LABORATORYCLIA [id number] [address] IMMATURE GRAN % 0.6 % Normal [facility] Comment on above: Order Comment: Speci men Type: BLOOD SPECIMENOrdering Facility: [facility] Address: [address] [place] [address] Performed By: #### 5 7021-8 ####[facility] LABORATORYCLIA [id number] [address] IMMATURE GRAN ABS 0.05 k/uL Normal <0.10 [facility] Comment on above: Order Comment: Speci men Type: BLOOD SPECIMENOrdering Facility: [facility] Address: [address] [place] [address] Performed By: #### 5 7021-8 ####[facility] LABORATORYCLIA [id number] [address] Lymphocytes (Bld) [#/Vol] 1.40 10*3/uL Normal 1.00-4.00 [facility] Comment on above: Order Comment: Speci men Type: BLOOD SPECIMENOrdering Facility: [facility] Address: [address] [place] [address] Performed By: #### 5 7021-8 ####[facility] LABORATORYCLIA [id number] [address] Lymphocytes/100 WBC (Bld) 15.8 % Normal [facility] Comment on above: Order Comment: Speci men Type: BLOOD SPECIMENOrdering Facility: [facility] Address: [address] [place] [address] Performed By: #### 5 7021-8 ####[facility] LABORATORYCLIA [id number] [address] STATES OF [facility] MCH (RBC) [Entitic mass] 28.4 pg Normal 26.0-34.0 [facility] Comment on above: Order Comment: Speci men Type: BLOOD SPECIMENOrdering Facility: [facility] Address: [address] [place] [address] Performed By: #### 5 7021-8 ####[facility] LABORATORYCLIA [id number] [address] STATES [facility] MCHC (RBC) [Mass/Vol] 30.8 g/dL Normal 30.5-36.0 [facility] Comment on above: Order Comment: Speci men Type: BLOOD SPECIMENOrdering Facility: [facility] Address: [address] [place] [address] Performed By: #### 5 7021-8 ####[facility] LABORATORYCLIA [id number] [place] [address] [place] MCV (RBC) [Entitic vol] 92.0 fL Normal 80.0-100.0 [facility] Comment on above: Order Comment: Speci men Type: BLOOD SPECIMENOrdering Facility: [facility] Address: [address] [place] [address] Performed By: #### 5 7021-8 ####[facility] LABORATORYCLIA [id number] [place] [address] [place] Monocytes (Bld) [#/Vol] 0.61 10*3/uL Normal <0.87 [facility] Comment on above: Order Comment: Speci men Type: BLOOD SPECIMENOrdering Facility: [facility] Address: [address] [place] [address] Performed By: #### 5 7021-8 ####[facility] LABORATORYCLIA [id number] [address] STATES [facility] Monocytes/100 WBC (Bld) 6.9 % Normal [facility] Comment on above: Order Comment: Speci men Type: BLOOD SPECIMENOrdering Facility: [facility] Address: [address] [place] [address] Performed By: #### 5 7021-8 ####[facility] LABORATORYCLIA [id number] [place] [address] [place] Neutrophils (Bld) [#/Vol] 6.62 10*3/uL Normal 1.45-7.50 [facility] Comment on above: Order Comment: Speci men Type: BLOOD SPECIMENOrdering Facility: [facility] Address: [address] [place] [address] Performed By: #### 5 7021-8 ####[facility] LABORATORYCLIA [id number] [address] [place] Neutrophils/100 WBC (Bld) 74.7 % Normal [facility] Comment on above: Order Comment: Speci men Type: BLOOD SPECIMENOrdering Facility: [facility] Address: [address] [address] Performed By: #### 5 7021-8 ####[facility] LABORATORYCLIA [id number] [address] Nucleated RBC (Bld) [#/Vol] 10*3/uL Normal <0.01 [facility] Comment on above: Order Comment: Speci men Type: BLOOD SPECIMENOrdering Facility: [facility] Address: [address] [place] [address] Performed By: #### 5 7021-8 ####[facility] LABORATORYCLIA [id number] [address] Nucleated RBC/100 WBC (Bld) [Ratio] 0.0 /100 WBC Normal [facility] Comment on above: Order Comment: Speci men Type: BLOOD SPECIMENOrdering Facility: [facility] Address: [address] [place] [address] Performed By: #### 5 7021-8 ####[facility] LABORATORYCLIA [id number] [address] [place] Platelet mean volume (Bld) [Entitic vol] 9.8 fL Normal 9.0-12.7 [facility] Comment on above: Order Comment: Speci men Type: BLOOD SPECIMENOrdering Facility: [facility] Address: [address] [place] [address] Performed By: #### 5 7021-8 ####[facility] LABORATORYCLIA [id number] [address] Platelets (Bld) [#/Vol] 157 10*3/uL Normal 150-400 [facility] Comment on above: Order Comment: Speci men Type: BLOOD SPECIMENOrdering Facility: [facility] Address: [address] [place] [address] Performed By: #### 5 7021-8 ####[facility] LABORATORYCLIA [id number] [address] [place] (Bld) [#/Vol] 2.89 10*6/uL Low 4.20-6.00 [facility] Comment on above: Order Comment: Speci men Type: BLOOD SPECIMENOrdering Facility: [facility] Address: [address] [place] [address] Performed By: #### 5 7021-8 ####[facility] LABORATORYCLIA [id number] [place] [address] UNITED [place] WBC (Bld) [#/Vol] 8.86 10*3/uL Normal 3.70-11.00 [facility] Comment on above: Order Comment: Speci men Type: BLOOD SPECIMENOrdering Facility: [facility] Address: [address] [place] [address] Performed By: #### 5 7021-8 ####[facility] LABORATORYCLIA [id number] [address] OF [facility] CBC panel Auto (Bld)on 08-11 Erythrocyte distribution width (RBC) [Ratio] 17.2 % High 11.5-15.0 [facility] Comment on above: Order Comment: Speci men Type: BLOOD SPECIMENOrdering Facility: [facility] Address: [address] [place] [address] Performed By: #### 5 8410-2 ####[facility] LABORATORYCLIA [id number] [address] [place] Hematocrit (Bld) [Volume fraction] 27.0 % Low 39.0-51.0 [facility] Comment on above: Order Comment: Speci men Type: BLOOD SPECIMENOrdering Facility: [facility] Address: [address] [place] [address] Performed By: #### 5 8410-2 ####[facility] LABORATORYCLIA [id number] [address] Hemoglobin (Bld) [Mass/Vol] 8.3 g/dL Low 13.0-17.0 [facility] Comment on above: Order Comment: Speci men Type: BLOOD SPECIMENOrdering Facility: [facility] Address: [address] [place] [address] Performed By: #### 5 8410-2 ####[facility] LABORATORYCLIA [id number] [address] MCH (RBC) [Entitic mass] 28.7 pg Normal 26.0-34.0 [facility] Comment on above: Order Comment: Speci men Type: BLOOD SPECIMENOrdering Facility: [facility] Address: [address] [place] [address] Performed By: #### 5 8410-2 ####[facility] LABORATORYCLIA [id number] [address] MCHC (RBC) [Mass/Vol] 30.7 g/dL Normal 30.5-36.0 [facility] Comment on above: Order Comment: Speci men Type: BLOOD SPECIMENOrdering Facility: [facility] Address: [address] [place] [address] Performed By: #### 5 8410-2 ####[facility] LABORATORYCLIA [id number] [address] STATES OF [facility] MCV (RBC) [Entitic vol] 93.4 fL Normal 80.0-100.0 [facility] Comment on above: Order Comment: Speci men Type: BLOOD SPECIMENOrdering Facility: [facility] Address: [address] [place] [address] Performed By: #### 5 8410-2 ####[facility] LABORATORYCLIA [id number] [address] Nucleated RBC (Bld) [#/Vol] 10*3/uL Normal <0.01 [facility] Comment on above: Order Comment: Speci men Type: BLOOD SPECIMENOrdering Facility: [facility] Address: [address] [place] [address] Performed By: #### 5 8410-2 ####[facility] LABORATORYCLIA [id number] [address] Platelet mean volume (Bld) [Entitic vol] 9.8 fL Normal 9.0-12.7 [facility] Comment on above: Order Comment: Speci men Type: BLOOD SPECIMENOrdering Facility: [facility] Address: [address] [place] [address] Performed By: #### 5 8410-2 ####[facility] LABORATORYCLIA [id number] [address] Platelets (Bld) [#/Vol] 169 10*3/uL Normal 150-400 [facility] Comment on above: Order Comment: Speci men Type: BLOOD SPECIMENOrdering Facility: [facility] Address: [address] [place] [address] Performed By: #### 5 8410-2 ####[facility] LABORATORYCLIA [id number] [address] STATES [place] [facility] RBC (Bld) [#/Vol] 2.89 10*6/uL Low 4.20-6.00 [facility] Comment on above: Order Comment: Speci men Type: BLOOD SPECIMENOrdering Facility: [facility] Address: [address] [place] [address] Performed By: #### 5 8410-2 ####[facility] LABORATORYCLIA [id number] [address] WBC (Bld) [#/Vol] 9.03 10*3/uL Normal 3.70-11.00 [facility] Comment on above: Order Comment: Speci men Type: BLOOD SPECIMENOrdering Facility: [facility] Address: [address] [place] [address] Performed By: #### 5 8410-2 ####[facility] LABORATORYCLIA [id number] [address] BRAIN WO IVCONon 08-12-19 CT BRAIN WO IVCON Normal [facility] PT panel Coag (PPP)on 2021 INR Coag (PPP) [Relative time] 1.0 {INR} Normal 0.9-1.3 [facility] Comment on above: Order Comment: Shira feldman Type: BLOOD SPECIMENOrdering Facility: [facility] Address: [address] [id number] Result Comment: Yris min K Antagonist (VKA) Therapeutic Range: INR 2 to 3 (Target INR of 2.5)Note: For patients treated with VKA drugs, such as warfarin, the [place] [employer] 2012 Guideline recommends [...] al. Chest 2012, 141:7S-47SNishimura RA, et al. [facility] 2017, 70: 252-289 Performed By: #### 1 4979-9, 38984-9 ####[facility] LABORATORYCLIA [id number] [place] [address] [place] PT Coag (PPP) [Time] 11.4 s Normal 9.7-13.0 [facility] Comment on above: Order Comment: Shira feldman Type: BLOOD SPECIMENOrdering Facility: [facility] Address: [address] [id number] Performed By: #### 1 4979-9, 57368-0 ####[facility] LABORATORYCLIA [id number] [place] [address] [place] THERAPY NTon 08-11-2021 THERAPY NT Normal [facility] US DVT LOWER BILon 2 US DVT LOWER RAINER Normal [facility] US DVT UPPER BILon 2 US DVT UPPER RAINER Normal [facility] aPTT PPPon 08-11-2021 aPTT Coag (PPP) [Time] 26.9 s Normal 23.0-32.4 [facility] Comment on above: Order Comment: Speci men Type: BLOOD SPECIMENOrdering Facility: [facility] Address: [address] [place] [address] Performed By: #### 1 4979-9, 57266-8 ####[facility] LABORATORYCLIA [id number] [place] [address] [place] Basic metabolic 2000 panelon 08-10-2021 Anion gap [Moles/Vol] 11 mmol/L Normal 9-18 [facility] Comment on above: Order Comment: Speci men Type: BLOOD SPECIMENOrdering Facility: [facility] Address: [address] [place] [address] Performed By: #### 2 4321-2 ####[facility] LABORATORYCLIA [id number] [place] [address] [place] Calcium [Mass/Vol] 8.7 mg/dL Normal 8.5-10.2 [facility] Comment on above: Order Comment: Speci men Type: BLOOD SPECIMENOrdering Facility: [facility] Address: [address] [place] [address] Performed By: #### 2 4321-2 ####[facility] LABORATORYCLIA [id number] [address] [place] Chloride [Moles/Vol] 98 mmol/L Normal 97-105 [facility] Comment on above: Order Comment: Speci men Type: BLOOD SPECIMENOrdering Facility: [facility] Address: [address] [place] [address] Performed By: #### 2 4321-2 ####[facility] LABORATORYCLIA [id number] [place] [address] [place] CO2 [Moles/Vol] 28 mmol/L Normal 22-30 [facility] Comment on above: Order Comment: Speci men Type: BLOOD SPECIMENOrdering Facility: [facility] Address: [address] [place] [address] Performed By: #### 2 4321-2 ####[facility] LABORATORYCLIA [id number] [address] STATES OF [facility] Creatinine [Mass/Vol] 0.59 mg/dL Low 0.73-1.22 [facility] Comment on above: Order Comment: Johncara feldman Type: BLOOD SPECIMENOrdering Facility: [facility] Address: [address] [place] [address] Performed By: #### 2 4321-2 ####[facility] LABORATORYCLIA [id number] [address] ESTIMATED GLOMERULAR FILTRATION RATE 105 mL/min/1.73m??? Normal >=60 [facility] Comment on above: Order Comment: Shira feldman Type: BLOOD SPECIMENOrdering Facility: [facility] Address: [address] [place] [address] Result Comment: Luzmaria mated Glomerular Filtration Rate [...] actual GFR. Performed By: #### 2 4321-2 ####[facility] BENDIA [id number] [address] STATES OF [facility] Glucose [Mass/Vol] 118 mg/dL High 74-99 [facility] Comment on above: Order Comment: Sihra francia Type: BLOOD SPECIMENOrdering Facility: [facility] Address: [address] [place] [address] Result Comment: The [place] [employer] (ADA) provides guidance for cutoff [...] Standards of Medical Care in Diabetes 2016, [place] [employer]. Diabetes Care. 2016.39(Suppl 1). Performed By: #### 2 4321-2 ####[facility] LABORATORYCLIA [id number] [address] [place] Potassium [Moles/Vol] 3.7 mmol/L Normal 3.7-5.1 [facility] Comment on above: Order Comment: Speci men Type: BLOOD SPECIMENOrdering Facility: [facility] Address: [address] [place] [address] Performed By: #### 2 4321-2 ####[facility] LABORATORYCLIA [id number] [address] STATES [place] [facility] Sodium [Moles/Vol] 137 mmol/L Normal 136-144 [facility] Comment on above: Order Comment: Speci men Type: BLOOD SPECIMENOrdering Facility: [facility] Address: [address] [place] [address] Performed By: #### 2 4321-2 ####[facility] LABORATORYCLIA [id number] [address] STATES [facility] Urea nitrogen [Mass/Vol] 23 mg/dL Normal 9-24 [facility] Comment on above: Order Comment: Speci men Type: BLOOD SPECIMENOrdering Facility: [facility] Address: [address] [place] [address] Performed By: #### 2 4321-2 ####[facility] LABORATORYCLIA [id number] [address] [place] Anion gap [Moles/Vol] 17 mmol/L Normal 9-18 [facility] Comment on above: Order Comment: Speci men Type: BLOOD SPECIMENOrdering Facility: [facility] Address: [address] [place] [address] Performed By: #### 1 9123-9, 2777-1, 89958-9 ####[facility] LABORATORYCLIA [id number] [address] [place] [facility] Calcium [Mass/Vol] 7.7 mg/dL Low 8.5-10.2 [facility] Comment on above: Order Comment: Speci men Type: BLOOD SPECIMENOrdering Facility: [facility] Address: [address] [place] [address] Performed By: #### 1 9123-9, 2777-1, 30484-0 ####[facility] LABORATORYCLIA [id number] [place] [address] [place] Chloride [Moles/Vol] 86 mmol/L Low 97-105 [facility] Comment on above: Order Comment: Speci men Type: BLOOD SPECIMENOrdering Facility: [facility] Address: [address] [place] [address] Performed By: #### 1 9123-9, 2776-05, 70831-0 ####[facility] LABORATORYCLIA [id number] [address] STATES OF [facility] CO2 [Moles/Vol] 24 mmol/L Normal 22-30 [facility] Comment on above: Order Comment: Speci men Type: BLOOD SPECIMENOrdering Facility: [facility] Address: [address] [place] [address] Performed By: #### 1 9123-9, 2776-05, 57301-4 ####[facility] LABORATORYCLIA [id number] [address] [place] [facility] Creatinine [Mass/Vol] 0.53 mg/dL Low 0.73-1.22 [facility] Comment on above: Order Comment: Speci men Type: BLOOD SPECIMENOrdering Facility: [facility] Address: [address] [place] [address] Performed By: #### 1 9123-9, 27711-04, 21501-5 ####[facility] LABORATORYCLIA [id number] [address] OF [facility] ESTIMATED GLOMERULAR FILTRATION RATE 108 mL/min/1.73m??? Normal >=60 [facility] Comment on above: Order Comment: Speci men Type: BLOOD SPECIMENOrdering Facility: [facility] Address: [address] [phone] Result Comment: Luzmaria mated Glomerular Filtration Rate [...] GFR. Performed By: #### 1 9123-9, 2777-1, 76537-5 ####[facility]ITALCLIA [id number] [place] [address] [place] Glucose [Mass/Vol] 455 mg/dL High 74-99 [facility] Comment on above: Order Comment: Shira feldman Type: BLOOD SPECIMENOrdering Facility: [facility] Address: [address] [place] [address] Result Comment: The [place] Diabetes Association (ADA) provides guidance for cutoff [...] Standards of Medical Care in Diabetes 2016, [place] [employer]. Diabetes Care. 2016.39(Suppl 1). Performed By: #### 1 9123-9, 2777-1, 38015-4 ####[facility] LABORATORYCLIA [id number] [place] [address] [place] Potassium [Moles/Vol] 3.4 mmol/L Low 3.7-5.1 [facility] Comment on above: Order Comment: Shira [facility] Type: BLOOD SPECIMENOrdering Facility: [facility] Address: [address] [phone] Performed By: #### 1 9123-9, 2777-, 82860-1 ####[facility] LABORATORYCLIA [id number] [address] [place] Sodium [Moles/Vol] 127 mmol/L Low 136-144 [facility] Comment on above: Order Comment: Speci men Type: BLOOD SPECIMENOrdering Facility: [facility] Address: [address] [place] [address] Performed By: #### 1 9123-9, 2777, 64063-2 ####[facility] LABORATORYCLIA [id number] [address] [place] Urea nitrogen [Mass/Vol] 21 mg/dL Normal 9-24 [facility] Comment on above: Order Comment: Speci men Type: BLOOD SPECIMENOrdering Facility: [facility] Address: [address] [place] [address] Performed By: #### 1 9123-9, 2777, ####[facility] LABORATORYCLIA [id number] [address] [place] CASE MANAGEMon 08-10-2021 CASE MANAGEM Normal [facility] CBC W Auto Differential pane l (Bld)on 08-10-2021 Basophils (Bld) [#/Vol] 0.04 10*3/uL Normal <0.11 [facility] Comment on above: Order Comment: Speci men Type: BLOOD SPECIMENOrdering Facility: [facility] Address: [address] [place] [address] Performed By: #### 5 7021-8 ####[facility] LABORATORYCLIA [id number] [address] STATES [facility] Basophils/100 WBC (Bld) 0.4 % Normal [facility] Comment on above: Order Comment: Speci men Type: BLOOD SPECIMENOrdering Facility: [facility] Address: [address] [place] [address] Performed By: #### 5 7021-8 ####[facility] LABORATORYCLIA [id number] [address] Differential cell count method Nom (Bld) Auto Normal [facility] Comment on above: Order Comment: Speci men Type: BLOOD SPECIMENOrdering Facility: [facility] Address: [address] [place] [address] Performed By: #### 5 7021-8 ####[facility] LABORATORYCLIA [id number] [address] [place] Eosinophils (Bld) [#/Vol] 0.11 10*3/uL Normal <0.46 [facility] Comment on above: Order Comment: Speci men Type: BLOOD SPECIMENOrdering Facility: [facility] Address: [address] [place] [address] Performed By: #### 5 7021-8 ####[facility] LABORATORYCLIA [id number] [address] Eosinophils/100 WBC (Bld) 1.1 % Normal [facility] Comment on above: Order Comment: Speci men Type: BLOOD SPECIMENOrdering Facility: [facility] Address: [address] [place] [address] Performed By: #### 5 7021-8 ####[facility] LABORATORYCLIA [id number] [address] Erythrocyte distribution width (RBC) [Ratio] 17.2 % High 11.5-15.0 [facility] Comment on above: Order Comment: Speci men Type: BLOOD SPECIMENOrdering Facility: [facility] Address: [address] [place] [address] Performed By: #### 5 7021-8 ####[facility] LABORATORYCLIA [id number] [address] Hematocrit (Bld) [Volume fraction] 25.5 % Low 39.0-51.0 [facility] Comment on above: Order Comment: Speci men Type: BLOOD SPECIMENOrdering Facility: [facility] Address: [address] [place] [address] Performed By: #### 5 7021-8 ####[facility] LABORATORYCLIA [id number] [address] STATES OF [facility] Hemoglobin (Bld) [Mass/Vol] 7.9 g/dL Low 13.0-17.0 [facility] Comment on above: Order Comment: Speci men Type: BLOOD SPECIMENOrdering Facility: [facility] Address: [address] [place] [address] Performed By: #### 5 7021-8 ####[facility] LABORATORYCLIA [id number] [address] IMMATURE GRAN % 0.4 % Normal [facility] Comment on above: Order Comment: Speci men Type: BLOOD SPECIMENOrdering Facility: [facility] Address: [address] [place] [address] Performed By: #### 5 7021-8 ####[facility] LABORATORYCLIA [id number] [address] IMMATURE GRAN ABS 0.04 k/uL Normal <0.10 [facility] Comment on above: Order Comment: Speci men Type: BLOOD SPECIMENOrdering Facility: [facility] Address: [address] [place] [address] Performed By: #### 5 7021-8 ####[facility] LABORATORYCLIA [id number] [address] [place] Lymphocytes (Bld) [#/Vol] 1.66 10*3/uL Normal 1.00-4.00 [facility] Comment on above: Order Comment: Speci men Type: BLOOD SPECIMENOrdering Facility: [facility] Address: [address] [place] [address] Performed By: #### 5 7021-8 ####[facility] LABORATORYCLIA [id number] [address] Lymphocytes/100 WBC (Bld) 16.2 % Normal [facility] Comment on above: Order Comment: Speci men Type: BLOOD SPECIMENOrdering Facility: [facility] Address: [address] [place] [address] Performed By: #### 5 7021-8 ####[facility] LABORATORYCLIA [id number] [address] MCH (RBC) [Entitic mass] 28.5 pg Normal 26.0-34.0 [facility] Comment on above: Order Comment: Speci men Type: BLOOD SPECIMENOrdering Facility: [facility] Address: [address] [place] [address] Performed By: #### 5 7021-8 ####[facility] LABORATORYCLIA [id number] [address] MCHC (RBC) [Mass/Vol] 31.0 g/dL Normal 30.5-36.0 [facility] Comment on above: Order Comment: Speci men Type: BLOOD SPECIMENOrdering Facility: [facility] Address: [address] [place] [address] Performed By: #### 5 7021-8 ####[facility] LABORATORYCLIA [id number] [address] MCV (RBC) [Entitic vol] 92.1 fL Normal 80.0-100.0 [facility] Comment on above: Order Comment: Speci men Type: BLOOD SPECIMENOrdering Facility: [facility] Address: [address] [place] [address] Performed By: #### 5 7021-8 ####[facility] LABORATORYCLIA [id number] [address] Monocytes (Bld) [#/Vol] 0.51 10*3/uL Normal <0.87 [facility] Comment on above: Order Comment: Speci men Type: BLOOD SPECIMENOrdering Facility: [facility] Address: [address] [place] [address] Performed By: #### 5 7021-8 ####[facility] LABORATORYCLIA [id number] [address] Monocytes/100 WBC (Bld) 5.0 % Normal [facility] Comment on above: Order Comment: Speci men Type: BLOOD SPECIMENOrdering Facility: [facility] Address: [address] [place] [address] Performed By: #### 5 7021-8 ####[facility] LABORATORYCLIA [id number] [address] [place] Neutrophils (Bld) [#/Vol] 7.91 10*3/uL High 1.45-7.50 [facility] Comment on above: Order Comment: Speci men Type: BLOOD SPECIMENOrdering Facility: [facility] Address: [address] [place] [address] Performed By: #### 5 7021-8 ####[facility]ORYCLIA [id number] [address] [place] Neutrophils/100 WBC (Bld) 76.9 % Normal [facility] Comment on above: Order Comment: Speci men Type: BLOOD SPECIMENOrdering Facility: [facility] Address: [address] [place] [address] Performed By: #### 5 7021-8 ####[facility] LABORATORYCLIA [id number] [address] [place] Nucleated RBC (Bld) [#/Vol] 10*3/uL Normal <0.01 [facility] Comment on above: Order Comment: Speci men Type: BLOOD SPECIMENOrdering Facility: [facility] Address: [address] [place] [address] Performed By: #### 5 7021-8 ####[facility] LABORATORYCLIA [id number] [address] [place] Nucleated RBC/100 WBC (Bld) [Ratio] 0.0 /100 WBC Normal [facility] Comment on above: Order Comment: Speci men Type: BLOOD SPECIMENOrdering Facility: [facility] Address: [address] [place] [address] Performed By: #### 5 7021-8 ####[facility] LABORATORYCLIA [id number] [address] [place] Platelet mean volume (Bld) [Entitic vol] 10.3 fL Normal 9.0-12.7 [facility] Comment on above: Order Comment: Speci men Type: BLOOD SPECIMENOrdering Facility: [facility] Address: [address] [place] [address] Performed By: #### 5 7021-8 ####[facility] LABORATORYCLIA [id number] [place] [address] [place] Platelets (Bld) [#/Vol] 152 10*3/uL Normal 150-400 [facility] Comment on above: Order Comment: Speci men Type: BLOOD SPECIMENOrdering Facility: [facility] Address: [address] [place] [address] Performed By: #### 5 7021-8 ####[facility] LABORATORYCLIA [id number] [address] STATES OF [facility] RBC (Bld) [#/Vol] 2.77 10*6/uL Low 4.20-6.00 [facility] Comment on above: Order Comment: Speci men Type: BLOOD SPECIMENOrdering Facility: [facility] Address: [address] [place] [address] Performed By: #### 5 7021-8 ####[facility] LABORATORYCLIA [id number] [address] [place] WBC (Bld) [#/Vol] 10.27 10*3/uL Normal 3.70-11.00 [facility] Comment on above: Order Comment: Speci men Type: BLOOD SPECIMENOrdering Facility: [facility] Address: [address] [place] [address] Performed By: #### 5 7021-8 ####[facility] LABORATORYCLIA [id number] [address] [place] Magnesium SerPl-mCncon 08-10 Magnesium [Mass/Vol] 1.8 mg/dL Normal 1.7-2.3 [facility] Comment on above: Order Comment: Speci men Type: BLOOD SPECIMENOrdering Facility: [facility] Address: [place] [address] Performed By: #### 1 9123-9, 2777-1, 78994-1 ####[facility] LABORATORYCLIA [id number] [address] OF [facility] NURSING PROGon 08-10-2021 NURSING PROG Normal [facility] NURSING PROG Normal [facility] NUTRITIONon 08-10-2021 NUTRITION Normal [facility] Phosphate SerPl-mCncon 08-10 Phosphate [Mass/Vol] 3.7 mg/dL Normal 2.7-4.8 [facility] Comment on above: Order Comment: Speci men Type: BLOOD SPECIMENOrdering Facility: [facility] Address: [address] [place] [address] Performed By: #### 1 9123-9, 2777, 60670-0 ####[facility] LABORATORYCLIA [id number] [address] [place] ALLIED HEALTHon 08-09-2021 [...] Comment: Speci men Type: BLOOD SPECIMENOrdering Facility: [facility] Address: [place] [address] Performed By: #### 2 4321-2, 72274-5, 2777-1 ####[facility] LABORATORYCLIA [id number] [address] [place] Calcium [Mass/Vol] 9.2 mg/dL Normal 8.5-10.2 [facility] Comment on above: Order Comment: Speci men Type: BLOOD SPECIMENOrdering Facility: [facility] Address: [address] [place] [address] Performed By: #### 2 4321-2, , 2776-05 ####[facility] LABORATORYCLIA [id number] [place] [address] [place] Chloride [Moles/Vol] 97 mmol/L Normal 97-105 [facility] Comment on above: Order Comment: Speci men Type: BLOOD SPECIMENOrdering Facility: [facility] Address: [address] [place] [address] Performed By: #### 2 4321-2, , 2776-05 ####[facility] LABORATORYCLIA [id number] [address] [place] CO2 [Moles/Vol] 30 mmol/L Normal 22-30 [facility] Comment on above: Order Comment: Speci men Type: BLOOD SPECIMENOrdering Facility: [facility] Address: [address] [place] [address] Performed By: #### 2 4321-2, , 2776-05 ####[facility] LABORATORYCLIA [id number] [address] [place] Creatinine [Mass/Vol] 0.51 mg/dL Low 0.73-1.22 [facility] Comment on above: Order Comment: Speci men Type: BLOOD SPECIMENOrdering Facility: [facility] Address: [address] [place] [address] Performed By: #### 2 4321-2, , 2776-05 ####[facility] LABORATORYCLIA [id number] [address] ESTIMATED GLOMERULAR FILTRATION RATE 110 mL/min/1.73m??? Normal >=60 [facility] Comment on above: Order Comment: Speci men Type: BLOOD SPECIMENOrdering Facility: [facility] Address: [address] [place] [address] Result Comment: Luzmaria mated Glomerular Filtration Rate [...] Performed By: #### 2 4321-2, , 2776-05 ####[facility]IA [id number] [place] [address] [place] Glucose [Mass/Vol] 106 mg/dL High 74-99 [facility] Comment on above: Order Comment: Shira feldman Type: BLOOD SPECIMENOrdering Facility: [facility] Address: [address] [place], [place] [id number] Result Comment: The [place] [employer] (ADA) provides guidance for cutoff [...] Standards of Medical Care in Diabetes 2016, [place] [employer]. Diabetes Care. 2016.39(Suppl 1). Performed By: #### 2 4321-2, , 2776-05 ####[facility] LABORATORYIA [id number] [place] [address] [place] Potassium [Moles/Vol] 4.1 mmol/L Normal 3.7-5.1 [facility] Comment on above: Order Comment: Shira feldman Type: BLOOD SPECIMENOrdering Facility: [facility] Address: [address] [place] [id number] Performed By: #### 2 4321-2, , 2776-05 ####[facility] LABORATORYCLIA [id number] [place] [address] [place] Sodium [Moles/Vol] 135 mmol/L Low 136-144 [facility] Comment on above: Order Comment: Speci men Type: BLOOD SPECIMENOrdering Facility: [facility] Address: [address] [place] [address] Performed By: #### 2 4321-2, , 2776-05 ####[facility] LABORATORYCLIA [id number] [place] [address] [place] Urea nitrogen [Mass/Vol] 26 mg/dL High 9-24 [facility] Comment on above: Order Comment: Speci men Type: BLOOD SPECIMENOrdering Facility: [facility] Address: [address] [place] [address] Performed By: #### 2 4321-2, , 2776-05 ####[facility] LABORATORYCLIA [id number] [address] [place] CBC W Auto Differential pane l (Bld)on 08-09-2021 Basophils (Bld) [#/Vol] 0.06 10*3/uL Normal <0.11 [facility] Comment on above: Order Comment: Speci men Type: BLOOD SPECIMENOrdering Facility: [facility] Address: [address] [place] [address] Performed By: #### 5 7021-8 ####[facility] LABORATORYCLIA [id number] [address] [place] Basophils/100 WBC (Bld) 0.5 % Normal [facility] Comment on above: Order Comment: Speci men Type: BLOOD SPECIMENOrdering Facility: [facility] Address: [address] [place] [address] Performed By: #### 5 7021-8 ####[facility] LABORATORYCLIA [id number] [address] [place] Differential cell count method Nom (Bld) Auto Normal [facility] Comment on above: Order Comment: Speci men Type: BLOOD SPECIMENOrdering Facility: [facility] Address: [address] [place] [address] Performed By: #### 5 7021-8 ####[facility] LABORATORYCLIA [id number] [address] [place] Eosinophils (Bld) [#/Vol] 0.42 10*3/uL Normal <0.46 [facility] Comment on above: Order Comment: Speci men Type: BLOOD SPECIMENOrdering Facility: [facility] Address: [address] [place] [address] Performed By: #### 5 7021-8 ####[facility] LABORATORYCLIA [id number] [address] [place] Eosinophils/100 WBC (Bld) 3.8 % Normal [facility] Comment on above: Order Comment: Speci men Type: BLOOD SPECIMENOrdering Facility: [facility] Address: [address] [place] [address] Performed By: #### 5 7021-8 ####[facility] LABORATORYCLIA [id number] [address] [place] Erythrocyte distribution width (RBC) [Ratio] 17.6 % High 11.5-15.0 [facility] Comment on above: Order Comment: Speci men Type: BLOOD SPECIMENOrdering Facility: [facility] Address: [address] [place] [address] Performed By: #### 5 7021-8 ####[facility] LABORATORYCLIA [id number] [address] [place] Hematocrit (Bld) [Volume fraction] 29.3 % Low 39.0-51.0 [facility] Comment on above: Order Comment: Speci men Type: BLOOD SPECIMENOrdering Facility: [facility] Address: [address] [place] [address] Performed By: #### 5 7021-8 ####[facility]ORATORYCLIA [id number] [address] [place] Hemoglobin (Bld) [Mass/Vol] 9.0 g/dL Low 13.0-17.0 [facility] Comment on above: Order Comment: Speci men Type: BLOOD SPECIMENOrdering Facility: [facility] Address: [address] [place] [address] Performed By: #### 5 7021-8 ####[facility] LABORATORYCLIA [id number] [address] IMMATURE GRAN % 0.5 % Normal [facility] Comment on above: Order Comment: Speci men Type: BLOOD SPECIMENOrdering Facility: [facility] Address: [address] [place] [address] Performed By: #### 5 7021-8 ####[facility] LABORATORYCLIA [id number] [address] IMMATURE GRAN ABS 0.05 k/uL Normal <0.10 [facility] Comment on above: Order Comment: Speci men Type: BLOOD SPECIMENOrdering Facility: [facility] Address: [address] [place] [address] Performed By: #### 5 7021-8 ####[facility] LABORATORYCLIA [id number] [address] [place] Lymphocytes (Bld) [#/Vol] 2.00 10*3/uL Normal 1.00-4.00 [facility] Comment on above: Order Comment: Speci men Type: BLOOD SPECIMENOrdering Facility: [facility] Address: [address] [place] [address] Performed By: #### 5 7021-8 ####[facility] LABORATORYCLIA [id number] [address] Lymphocytes/100 WBC (Bld) 18.1 % Normal [facility] Comment on above: Order Comment: Speci men Type: BLOOD SPECIMENOrdering Facility: [facility] Address: [address] [place] [address] Performed By: #### 5 7021-8 ####[facility] LABORATORYCLIA [id number] [address] MCH (RBC) [Entitic mass] 28.1 pg Normal 26.0-34.0 [facility] Comment on above: Order Comment: Speci men Type: BLOOD SPECIMENOrdering Facility: [facility] Address: [address] [place] [address] Performed By: #### 5 7021-8 ####[facility] LABORATORYCLIA [id number] [address] STATES [facility] MCHC (RBC) [Mass/Vol] 30.7 g/dL Normal 30.5-36.0 [facility] Comment on above: Order Comment: Speci men Type: BLOOD SPECIMENOrdering Facility: [facility] Address: [address] [place] [address] Performed By: #### 5 7021-8 ####[facility] LABORATORYCLIA [id number] [address] MCV (RBC) [Entitic vol] 91.6 fL Normal 80.0-100.0 [facility] Comment on above: Order Comment: Speci men Type: BLOOD SPECIMENOrdering Facility: [facility] Address: [address] [place] [address] Performed By: #### 5 7021-8 ####[facility] LABORATORYCLIA [id number] [address] Monocytes (Bld) [#/Vol] 0.68 10*3/uL Normal <0.87 [facility] Comment on above: Order Comment: Speci men Type: BLOOD SPECIMENOrdering Facility: [facility] Address: [address] [place] [address] Performed By: #### 5 7021-8 ####[facility] LABORATORYCLIA [id number] [address] Monocytes/100 WBC (Bld) 6.2 % Normal [facility] Comment on above: Order Comment: Speci men Type: BLOOD SPECIMENOrdering Facility: [facility] Address: [address] [place] [address] Performed By: #### 5 7021-8 ####[facility] LABORATORYCLIA [id number] [address] [place] Neutrophils (Bld) [#/Vol] 7.82 10*3/uL High 1.45-7.50 [facility] Comment on above: Order Comment: Speci men Type: BLOOD SPECIMENOrdering Facility: [facility] Address: [address] [place] [address] Performed By: #### 5 7021-8 ####[facility] LABORATORYCLIA [id number] [address] [place] Neutrophils/100 WBC (Bld) 70.9 % Normal [facility] Comment on above: Order Comment: Speci men Type: BLOOD SPECIMENOrdering Facility: [facility] Address: [address] [place] [address] Performed By: #### 5 7021-8 ####[facility] LABORATORYCLIA [id number] [address] [place] Nucleated RBC (Bld) [#/Vol] 10*3/uL Normal <0.01 [facility] Comment on above: Order Comment: Speci men Type: BLOOD SPECIMENOrdering Facility: [facility] Address: [address] [place] [address] Performed By: #### 5 7021-8 ####[facility] LABORATORYCLIA [id number] [address] [place] Nucleated RBC/100 WBC (Bld) [Ratio] 0.0 /100 WBC Normal [facility] Comment on above: Order Comment: Speci men Type: BLOOD SPECIMENOrdering Facility: [facility] Address: [address] [place] [address] Performed By: #### 5 7021-8 ####[facility]ORATORYCLIA [id number] [address] [place] Platelet mean volume (Bld) [Entitic vol] 10.1 fL Normal 9.0-12.7 [facility] Comment on above: Order Comment: Speci men Type: BLOOD SPECIMENOrdering Facility: [facility] Address: [address] [place] [address] Performed By: #### 5 7021-8 ####[facility] LABORATORYCLIA [id number] [place] [address] [place] Platelets (Bld) [#/Vol] 160 10*3/uL Normal 150-400 [facility] Comment on above: Order Comment: Speci men Type: BLOOD SPECIMENOrdering Facility: [facility] Address: [address] [place] [address] Performed By: #### 5 7021-8 ####[facility] LABORATORYCLIA [id number] [place] [address] [place] RBC (Bld) [#/Vol] 3.20 10*6/uL Low 4.20-6.00 [facility] Comment on above: Order Comment: Speci men Type: BLOOD SPECIMENOrdering Facility: [facility] Address: [address] [place] [address] Performed By: #### 5 7021-8 ####[facility] LABORATORYCLIA [id number] [place] [address] [place] WBC (Bld) [#/Vol] 11.03 10*3/uL High 3.70-11.00 [facility] Comment on above: Order Comment: Speci men Type: BLOOD SPECIMENOrdering Facility: [facility] Address: [address] [place] [address] Performed By: #### 5 7021-8 ####[facility] LABORATORYCLIA [id number] [address] [place] CONSULT PROGon 08-09-2021 CONSULT PROG Normal [facility] CT BRAIN WO IVCONon 08-10-19 CT BRAIN WO IVCON Normal [facility] CT BRAIN WO IVCON Normal [facility] Magnesium SerPl-mCncon 08-09 Magnesium [Mass/Vol] 2.0 mg/dL Normal 1.7-2.3 [facility] Comment on above: Order Comment: Shira feldman Type: BLOOD SPECIMENOrdering Facility: [facility] Address: [address] [place] [address] Performed By: #### 2 4321-2, 28677-2, 2777-1 ####[facility] LABORATORYCLIA [id number] [address] OF [facility] NURSING PROGon 08-09-2021 NURSING PROG Normal [facility] OPERATIVE NOon 08-09-2021 OPERATIVE NO Normal [facility] PT panel Coag (PPP)on 2021 INR Coag (PPP) [Relative time] 1.1 {INR} Normal 0.9-1.3 [facility] Comment on above: Order Comment: Shira feldman Type: BLOOD SPECIMENOrdering Facility: [facility] Address: [address] [place] [address] Result Comment: Yris min K Antagonist (VKA) Therapeutic Range: INR 2 to 3 (Target INR of 2.5)Note: For patients treated with VKA drugs, such as warfarin, the [place] [employer] 2012 Guideline recommends [...] al. Chest 2012, 141:7S-47SNishmariangel RA, et al. [facility] 2017, 70: 252-289 Performed By: #### 3 4528-0, 84895-9 ####[facility] LABORATORYCLIA [id number] [address] [place] PT Coag (PPP) [Time] 11.7 s Normal 9.7-13.0 [facility] Comment on above: Order Comment: Speci men Type: BLOOD SPECIMENOrdering Facility: [facility] Address: [address] [place] [address] Performed By: #### 3 4528-0, 21445-0 ####[facility] LABORATORYCLIA [id number] [address] Phosphate SerPl-mCncon 08-09 Phosphate [Mass/Vol] 4.0 mg/dL Normal 2.7-4.8 [facility] Comment on above: Order Comment: Speci men Type: BLOOD SPECIMENOrdering Facility: [facility] Address: [address] [place] [address] Performed By: #### 2 4321-2, 14215-6, 2777-1 ####[facility] LABORATORYCLIA [id number] [address] THERAPY NTon 08-09-2021 THERAPY NT Normal [facility] THERAPY NT Normal [facility] TYPE AND SCREENon 08-09-2021 ABO O Normal [facility] Comment on above: Order Comment: Speci men Type: BLOOD SPECIMENOrdering Facility: [facility] Address: [address] [place] [address] Performed By: #### T SCR ####[facility] BLOOD BANKCLIA [id number] [address] OF [facility] HISTORICAL AB SCR STATUS Negative Normal [facility] Comment on above: Order Comment: Speci men Type: BLOOD SPECIMENOrdering Facility: [facility] Address: [address] [place] [address] Performed By: #### T SCR ####[facility] BLOOD BANKCLIA [id number] [address] Rh Nom (Bld) Positive Normal [facility] Comment on above: Order Comment: Speci men Type: BLOOD SPECIMENOrdering Facility: [facility] Address: [address] [place] [address] Performed By: #### T SCR ####[facility] BLOOD BANKCLIA [id number] [address] TYPE AND SCREEN EXPIRATION 08/12/2021 23:59 Normal [facility] Comment on above: Order Comment: Speci men Type: BLOOD SPECIMENOrdering Facility: [facility] Address: [address] [place] [address] Performed By: #### T SCR ####[facility] BLOOD BANKCLIA [id number] [address] XR ABD 2V SUPINE W UPR/DECUB [...] (PPP) [Time] 26.8 s Normal 23.0-32.4 [facility] Comment on above: Order Comment: Speci men Type: BLOOD SPECIMENOrdering Facility: [facility] Address: [address] [place] [address] Performed By: #### 3 4528-0, 70612-7 ####[facility] LABORATORYCLIA [id number] [address] CASE MANAGEMon 08-08-2021 CASE MANAGEM Normal [facility] CBC W Auto Differential pane l (Bld)on 08-08-2021 Basophils (Bld) [#/Vol] 0.05 10*3/uL Normal <0.11 [facility] Comment on above: Order Comment: Speci men Type: BLOOD SPECIMENOrdering Facility: [facility] Address: [address] [place] [address] Performed By: #### 5 7021-8 ####[facility]ORATORYCLIA [id number] [address] STATES [facility] Basophils/100 WBC (Bld) 0.5 % Normal [facility] Comment on above: Order Comment: Speci men Type: BLOOD SPECIMENOrdering Facility: [facility] Address: [address] [place] [address] Performed By: #### 5 7021-8 ####[facility] LABORATORYCLIA [id number] [address] [place] Differential cell count method Nom (Bld) Auto Normal [facility] Comment on above: Order Comment: Speci men Type: BLOOD SPECIMENOrdering Facility: [facility] Address: [address] [place] [address] Performed By: #### 5 7021-8 ####[facility] LABORATORYCLIA [id number] [address] [place] Eosinophils (Bld) [#/Vol] 0.17 10*3/uL Normal <0.46 [facility] Comment on above: Order Comment: Speci men Type: BLOOD SPECIMENOrdering Facility: [facility] Address: [address] [place] [address] Performed By: #### 5 7021-8 ####[facility] LABORATORYCLIA [id number] [address] Eosinophils/100 WBC (Bld) 1.6 % Normal [facility] Comment on above: Order Comment: Speci men Type: BLOOD SPECIMENOrdering Facility: [facility] Address: [address] [place] [address] Performed By: #### 5 7021-8 ####[facility] LABORATORYCLIA [id number] [address] [place] Erythrocyte distribution width (RBC) [Ratio] 17.8 % High 11.5-15.0 [facility] Comment on above: Order Comment: Speci men Type: BLOOD SPECIMENOrdering Facility: [facility] Address: [address] [place] [address] Performed By: #### 5 7021-8 ####[facility] LABORATORYCLIA [id number] [address] Hematocrit (Bld) [Volume fraction] 29.6 % Low 39.0-51.0 [facility] Comment on above: Order Comment: Speci men Type: BLOOD SPECIMENOrdering Facility: [facility] Address: [address] [place] [address] Performed By: #### 5 7021-8 ####[facility] LABORATORYCLIA [id number] [address] Hemoglobin (Bld) [Mass/Vol] 9.0 g/dL Low 13.0-17.0 [facility] Comment on above: Order Comment: Speci men Type: BLOOD SPECIMENOrdering Facility: [facility] Address: [address] [place] [address] Performed By: #### 5 7021-8 ####[facility] LABORATORYCLIA [id number] [address] IMMATURE GRAN % 0.5 % Normal [facility] Comment on above: Order Comment: Speci men Type: BLOOD SPECIMENOrdering Facility: [facility] Address: [address] [place] [address] Performed By: #### 5 7021-8 ####[facility] LABORATORYCLIA [id number] [address] IMMATURE GRAN ABS 0.05 k/uL Normal <0.10 [facility] Comment on above: Order Comment: Speci men Type: BLOOD SPECIMENOrdering Facility: [facility] Address: [address] [place] [address] Performed By: #### 5 7021-8 ####[facility] LABORATORYCLIA [id number] [address] [place] Lymphocytes (Bld) [#/Vol] 1.93 10*3/uL Normal 1.00-4.00 [facility] Comment on above: Order Comment: Speci men Type: BLOOD SPECIMENOrdering Facility: [facility] Address: [address] [place] [address] Performed By: #### 5 7021-8 ####[facility] LABORATORYCLIA [id number] [address] Lymphocytes/100 WBC (Bld) 18.2 % Normal [facility] Comment on above: Order Comment: Speci men Type: BLOOD SPECIMENOrdering Facility: [facility] Address: [address] [place] [address] Performed By: #### 5 7021-8 ####[facility] LABORATORYCLIA [id number] [address] MCH (RBC) [Entitic mass] 28.1 pg Normal 26.0-34.0 [facility] Comment on above: Order Comment: Speci men Type: BLOOD SPECIMENOrdering Facility: [facility] Address: [address] [place] [address] Performed By: #### 5 7021-8 ####[facility] LABORATORYCLIA [id number] [address] MCHC (RBC) [Mass/Vol] 30.4 g/dL Low 30.5-36.0 [facility] Comment on above: Order Comment: Speci men Type: BLOOD SPECIMENOrdering Facility: [facility] Address: [address] [place] [address] Performed By: #### 5 7021-8 ####[facility] LABORATORYCLIA [id number] [address] STATES [facility] MCV (RBC) [Entitic vol] 92.5 fL Normal 80.0-100.0 [facility] Comment on above: Order Comment: Speci men Type: BLOOD SPECIMENOrdering Facility: [facility] Address: [address] [place] [address] Performed By: #### 5 7021-8 ####[facility] LABORATORYCLIA [id number] [place] [address] [place] Monocytes (Bld) [#/Vol] 0.75 10*3/uL Normal <0.87 [facility] Comment on above: Order Comment: Speci men Type: BLOOD SPECIMENOrdering Facility: [facility] Address: [address] [place] [address] Performed By: #### 5 7021-8 ####[facility] LABORATORYCLIA [id number] [place] [address] [place] Monocytes/100 WBC (Bld) 7.1 % Normal [facility] Comment on above: Order Comment: Speci men Type: BLOOD SPECIMENOrdering Facility: [facility] Address: [address] [place] [address] Performed By: #### 5 7021-8 ####[facility] LABORATORYCLIA [id number] [place] [address] [place] Neutrophils (Bld) [#/Vol] 7.65 10*3/uL High 1.45-7.50 [facility] Comment on above: Order Comment: Speci men Type: BLOOD SPECIMENOrdering Facility: [facility] Address: [address] [place] [address] Performed By: #### 5 7021-8 ####[facility] [facility]ATORYCLIA [id number] [address] [place] Neutrophils/100 WBC (Bld) 72.1 % Normal [facility] Comment on above: Order Comment: Speci men Type: BLOOD SPECIMENOrdering Facility: [facility] Address: [address] [place] [address] Performed By: #### 5 7021-8 ####[facility] LABORATORYCLIA [id number] [place] [address] [place] Nucleated RBC (Bld) [#/Vol] 10*3/uL Normal <0.01 [facility] Comment on above: Order Comment: Speci men Type: BLOOD SPECIMENOrdering Facility: [facility] Address: [address] [place] [address] Performed By: #### 5 7021-8 ####[facility] LABORATORYCLIA [id number] [address] Nucleated RBC/100 WBC (Bld) [Ratio] 0.0 /100 WBC Normal [facility] Comment on above: Order Comment: Speci men Type: BLOOD SPECIMENOrdering Facility: [facility] Address: [address] [place] [address] Performed By: #### 5 7021-8 ####[facility] LABORATORYCLIA [id number] [address] [place] Platelet mean volume (Bld) [Entitic vol] 9.8 fL Normal 9.0-12.7 [facility] Comment on above: Order Comment: Speci men Type: BLOOD SPECIMENOrdering Facility: [facility] Address: [address] [place] [address] Performed By: #### 5 7021-8 ####[facility] LABORATORYCLIA [id number] [address] [place] Platelets (Bld) [#/Vol] 175 10*3/uL Normal 150-400 [facility] Comment on above: Order Comment: Speci men Type: BLOOD SPECIMENOrdering Facility: [facility] Address: [address] [place] [address] Performed By: #### 5 7021-8 ####[facility]ORATORYCLIA [id number] [address] [place] RBC (Bld) [#/Vol] 3.20 10*6/uL Low 4.20-6.00 [facility] Comment on above: Order Comment: Speci men Type: BLOOD SPECIMENOrdering Facility: [facility] Address: [address] [place] [address] Performed By: #### 5 7021-8 ####[facility] LABORATORYCLIA [id number] [address] [place] WBC (Bld) [#/Vol] 10.60 10*3/uL Normal 3.70-11.00 [facility] Comment on above: Order Comment: Speci men Type: BLOOD SPECIMENOrdering Facility: [facility] Address: [address] [place] [address] Performed By: #### 5 7021-8 ####[facility] LABORATORYCLIA [id number] [address] [place] CT BRAIN WO IVCONon 08-09-19 CT BRAIN WO IVCON Normal [facility] NURSING PROGon 08-08-2021 NURSING PROG Normal [facility] Prealbumin [Mass/Vol]on Prealbumin Nephelometry [Mass/Vol] 29 mg/dL Normal - [facility] Comment on above: Order Comment: Speci men Type: BLOOD SPECIMENOrdering Facility: [facility] Address: [address] [place] [address] Performed By: #### 1 4338-8 ####[facility]ORATORYCLIA [id number] [address] OF [facility] SARS-CoV-2 RNA Resp Ql MEGAN+p robeon 08-08-2021 SARS-CoV-2 (COVID-19) RNA MEGAN+probe Ql (Resp) COVID 19 RESULT: SARS-CoV-2 (Agent of COVID-19) Not Detected by RT-PCR or equivalent method. This test has been authorized by FDA under an Emergency Use Authorization (EUA). Normal [facility] Comment on above: Performed By: #### 9 4500-6 ####[facility]ORATORYCLIA [id number] [place] [address] [place] ALLIED HEALTHon 08-07-2021 ALLIED HEALTH Normal [facility] Basic metabolic 2000 panelon 08-07-2021 Anion gap [Moles/Vol] 9 mmol/L Normal 9-18 [facility] Comment on above: Order Comment: Speci men Type: BLOOD SPECIMENOrdering Facility: [facility] Address: [address] [place] [address] Performed By: #### 2 4321-2, 2776-05, , HFP ####[facility]ORATORYCLIA [id number] [place] [address] [place] Calcium [Mass/Vol] 9.4 mg/dL Normal 8.5-10.2 [facility] Comment on above: Order Comment: Speci men Type: BLOOD SPECIMENOrdering Facility: [facility] Address: [address] [place] [address] Performed By: #### 2 4321-2, 2776-05, , HFP ####[facility]ORATORYCLIA [id number] [place] [address] [place] Chloride [Moles/Vol] 98 mmol/L Normal 97-105 [facility] Comment on above: Order Comment: Speci men Type: BLOOD SPECIMENOrdering Facility: [facility] Address: [address] [place] [address] Performed By: #### 2 4321-2, 2776-05, , HFP ####[facility]ORATORYCLIA [id number] [place] [address] [place] CO2 [Moles/Vol] 29 mmol/L Normal 22-30 [facility] Comment on above: Order Comment: Speci men Type: BLOOD SPECIMENOrdering Facility: [facility] Address: [address] [place] [address] Performed By: #### 2 4321-2, 2776-05, , HFP ####[facility]ORATORYCLIA [id number] [place] [address] [place] Creatinine [Mass/Vol] 0.67 mg/dL Low 0.73-1.22 [facility] Comment on above: Order Comment: Speci men Type: BLOOD SPECIMENOrdering Facility: [facility] Address: [address] [place] [address] Performed By: #### 2 4321-2, 2776-05, , HFP ####[facility]ORATORYCLIA [id number] [address] [place] ESTIMATED GLOMERULAR FILTRATION RATE 101 mL/min/1.73m??? Normal >=60 [facility] Comment on above: Order Comment: Shira feldman Type: BLOOD SPECIMENOrdering Facility: [facility] Address: [address] [place], [place] [address] Result Comment: Luzmaria mated Glomerular Filtration Rate [...] [facility] ####[facility]ORATORYCLIA [id number] [place] [address] [place] Glucose [Mass/Vol] 117 mg/dL High 74-99 [facility] Comment on above: Order Comment: Shira feldman Type: BLOOD SPECIMENOrdering Facility: [facility] Address: [address] [place] [address] Result Comment: The [place] [employer] (ADA) provides guidance for cutoff [...] Standards of Medical Care in Diabetes 2016, [place] [employer]. Diabetes Care. 2016.39(Suppl 1). Performed By: #### 2 4321-2, 2777-, , [facility] ####[facility]ORATORYCLIA [id number] [place] [address] [place] Potassium [Moles/Vol] 4.1 mmol/L Normal 3.7-5.1 [facility] Comment on above: Order Comment: Speci men Type: BLOOD SPECIMENOrdering Facility: [facility] Address: [address] [place], [place] [address] Performed By: #### 2 4321-2, 2776-05, , [facility] ####[facility]ORATORYCLIA [id number] [place] [address] [place] Sodium [Moles/Vol] 136 mmol/L Normal 136-144 [facility] Comment on above: Order Comment: Speci men Type: BLOOD SPECIMENOrdering Facility: [facility] Address: [address] [place], [place] [address] Performed By: #### 2 4321-2, 2776-05, , [facility] ####[facility]ORATORYCLIA [id number] [place] [address] [place] Urea nitrogen [Mass/Vol] 31 mg/dL High 9-24 [facility] Comment on above: Order Comment: Speci men Type: BLOOD SPECIMENOrdering Facility: [facility] Address: [address] [place] [address] Performed By: #### 2 4321-2, 2776-05, , [facility] ####[facility]ATORYCLIA [id number] [address] [place] CBC W Auto Differential pane l (Bld)on 08-07-2021 Basophils (Bld) [#/Vol] 0.03 10*3/uL Normal <0.11 [facility] Comment on above: Order Comment: Speci men Type: BLOOD SPECIMENOrdering Facility: [facility] Address: [address] [place] [address] Performed By: #### 5 7021-8 ####[facility]ORATORYCLIA [id number] [address] [place] Basophils/100 WBC (Bld) 0.3 % Normal [facility] Comment on above: Order Comment: Speci men Type: BLOOD SPECIMENOrdering Facility: [facility] Address: [address] [place] [address] Performed By: #### 5 7021-8 ####[facility]ATORYCLIA [id number] [address] Differential cell count method Nom (Bld) Auto Normal [facility] Comment on above: Order Comment: Speci men Type: BLOOD SPECIMENOrdering Facility: [facility] Address: [address] [place] [address] Performed By: #### 5 7021-8 ####[facility]ORATORYCLIA [id number] [address] [place] Eosinophils (Bld) [#/Vol] 0.16 10*3/uL Normal <0.46 [facility] Comment on above: Order Comment: Speci men Type: BLOOD SPECIMENOrdering Facility: [facility] Address: [address] [place] [address] Performed By: #### 5 7021-8 ####[facility]ORATORYCLIA [id number] [address] Eosinophils/100 WBC (Bld) 1.6 % Normal [facility] Comment on above: Order Comment: Speci men Type: BLOOD SPECIMENOrdering Facility: [facility] Address: [address] [place] [address] Performed By: #### 5 7021-8 ####[facility]ORATORYCLIA [id number] [address] Erythrocyte distribution width (RBC) [Ratio] 18.1 % High 11.5-15.0 [facility] Comment on above: Order Comment: Speci men Type: BLOOD SPECIMENOrdering Facility: [facility] Address: [address] [place] [address] Performed By: #### 5 7021-8 ####[facility]ORATORYCLIA [id number] [address] [place] Hematocrit (Bld) [Volume fraction] 30.6 % Low 39.0-51.0 [facility] Comment on above: Order Comment: Speci men Type: BLOOD SPECIMENOrdering Facility: [facility] Address: [address] [place] [address] Performed By: #### 5 7021-8 ####[facility]ORATORYCLIA [id number] [address] [place] Hemoglobin (Bld) [Mass/Vol] 9.4 g/dL Low 13.0-17.0 [facility] Comment on above: Order Comment: Speci men Type: BLOOD SPECIMENOrdering Facility: [facility] Address: [address] [place] [address] Performed By: #### 5 7021-8 ####[facility]ORATORYCLIA [id number] [address] IMMATURE GRAN % 0.4 % Normal [facility] Comment on above: Order Comment: Speci men Type: BLOOD SPECIMENOrdering Facility: [facility] Address: [address] [place] [address] Performed By: #### 5 7021-8 ####[facility]ORATORYCLIA [id number] [address] IMMATURE GRAN ABS 0.04 k/uL Normal <0.10 [facility] Comment on above: Order Comment: Speci men Type: BLOOD SPECIMENOrdering Facility: [facility] Address: [address] [place] [address] Performed By: #### 5 7021-8 ####[facility]ORATORYCLIA [id number] [address] [place] Lymphocytes (Bld) [#/Vol] 2.05 10*3/uL Normal 1.00-4.00 [facility] Comment on above: Order Comment: Speci men Type: BLOOD SPECIMENOrdering Facility: [facility] Address: [address] [place] [address] Performed By: #### 5 7021-8 ####[facility]ORATORYCLIA [id number] [address] Lymphocytes/100 WBC (Bld) 20.2 % Normal [facility] Comment on above: Order Comment: Speci men Type: BLOOD SPECIMENOrdering Facility: [facility] Address: [address] [place] [address] Performed By: #### 5 7021-8 ####[facility]ORATORYCLIA [id number] [address] STATES OF [facility] MCH (RBC) [Entitic mass] 28.8 pg Normal 26.0-34.0 [facility] Comment on above: Order Comment: Speci men Type: BLOOD SPECIMENOrdering Facility: [facility] Address: [address] [place] [address] Performed By: #### 5 7021-8 ####[facility]ORATORYCLIA [id number] [address] OF [facility] MCHC (RBC) [Mass/Vol] 30.7 g/dL Normal 30.5-36.0 [facility] Comment on above: Order Comment: Speci men Type: BLOOD SPECIMENOrdering Facility: [facility] Address: [address] [place] [address] Performed By: #### 5 7021-8 ####[facility]ORATORYCLIA [id number] [address] MCV (RBC) [Entitic vol] 93.9 fL Normal 80.0-100.0 [facility] Comment on above: Order Comment: Speci men Type: BLOOD SPECIMENOrdering Facility: [facility] Address: [address] [place] [address] Performed By: #### 5 7021-8 ####[facility]ORATORYCLIA [id number] [address] Monocytes (Bld) [#/Vol] 0.64 10*3/uL Normal <0.87 [facility] Comment on above: Order Comment: Speci men Type: BLOOD SPECIMENOrdering Facility: [facility] Address: [address] [place] [address] Performed By: #### 5 7021-8 ####[facility]ORATORYCLIA [id number] [address] [place] Monocytes/100 WBC (Bld) 6.3 % Normal [facility] Comment on above: Order Comment: Speci men Type: BLOOD SPECIMENOrdering Facility: [facility] Address: [address] [place] [address] Performed By: #### 5 7021-8 ####[facility]ATORYCLIA [id number] [address] [place] Neutrophils (Bld) [#/Vol] 7.22 10*3/uL Normal 1.45-7.50 [facility] Comment on above: Order Comment: Speci men Type: BLOOD SPECIMENOrdering Facility: [facility] Address: [address] [place] [address] Performed By: #### 5 7021-8 ####[facility]ORATORYCLIA [id number] [address] Neutrophils/100 WBC (Bld) 71.2 % Normal [facility] Comment on above: Order Comment: Speci men Type: BLOOD SPECIMENOrdering Facility: [facility] Address: [address] [place] [address] Performed By: #### 5 7021-8 ####[facility]ATORYCLIA [id number] [address] [place] Nucleated RBC (Bld) [#/Vol] 10*3/uL Normal <0.01 [facility] Comment on above: Order Comment: Speci men Type: BLOOD SPECIMENOrdering Facility: [facility] Address: [address] [place] [address] Performed By: #### 5 7021-8 ####[facility]ATORYCLIA [id number] [address] [place] Nucleated RBC/100 WBC (Bld) [Ratio] 0.0 /100 WBC Normal [facility] Comment on above: Order Comment: Speci men Type: BLOOD SPECIMENOrdering Facility: [facility] Address: [address] [place], [place] [address] Performed By: #### 5 7021-8 ####[facility] LABORATORYCLIA [id number] [address] Platelet mean volume (Bld) [Entitic vol] 9.9 fL Normal 9.0-12.7 [facility] Comment on above: Order Comment: Speci men Type: BLOOD SPECIMENOrdering Facility: [facility] Address: [address] [place] [address] Performed By: #### 5 7021-8 ####[facility] LABORATORYCLIA [id number] [address] [place] Platelets (Bld) [#/Vol] 227 10*3/uL Normal 150-400 [facility] Comment on above: Order Comment: Speci men Type: BLOOD SPECIMENOrdering Facility: [facility] Address: [address] [place] [address] Performed By: #### 5 7021-8 ####[facility]ORATORYCLIA [id number] [address] [place] RBC (Bld) [#/Vol] 3.26 10*6/uL Low 4.20-6.00 [facility] Comment on above: Order Comment: Speci men Type: BLOOD SPECIMENOrdering Facility: [facility] Address: [address] [place], [place] [address] Performed By: #### 5 7021-8 ####[facility] LABORATORYCLIA [id number] [address] [place] WBC (Bld) [#/Vol] 10.14 10*3/uL Normal 3.70-11.00 [facility] Comment on above: Order Comment: Speci men Type: BLOOD SPECIMENOrdering Facility: [facility] Address: [address] [place] [address] Performed By: #### 5 7021-8 ####[facility]ORATORYCLIA [id number] [address] BRAIN WO IVCONon 08-08-19 CT BRAIN WO IVCON Normal [facility] HEPATIC FUNCTION PNLon 08-07 Albumin [Mass/Vol] 3.6 g/dL Low 3.9-4.9 [facility] Comment on above: Order Comment: Speci men Type: BLOOD SPECIMENOrdering Facility: [facility] Address: [address] [place] [address] Performed By: #### 2 4321-2, 2776-, , HFP ####[facility]ORATORYCLIA [id number] [address] ALP [Catalytic activity/Vol] 124 U/L High 38-113 [facility] Comment on above: Order Comment: Speci men Type: BLOOD SPECIMENOrdering Facility: [facility] Address: [address] [place] [address] Performed By: #### 2 4321-2, 2776-05, , HFP ####[facility]ORATORYCLIA [id number] [address] STATES OF [facility] ALT With P-5'-P [Catalytic activity/Vol] 29 U/L Normal 10-54 [facility] Comment on above: Order Comment: Speci men Type: BLOOD SPECIMENOrdering Facility: [facility] Address: [address] [place] [address] Performed By: #### 2 4321-2, 2776-05, , HFP ####[facility]ORATORYCLIA [id number] [address] AST With P-5'-P [Catalytic activity/Vol] 18 U/L Normal 14-40 [facility] Comment on above: Order Comment: Speci men Type: BLOOD SPECIMENOrdering Facility: [facility] Address: [address] [place] [address] Performed By: #### 2 4321-2, 277-, , HFP ####[facility]ORATORYCLIA [id number] [address] [place] Bilirubin [Mass/Vol] 0.3 mg/dL Normal 0.2-1.3 [facility] Comment on above: Order Comment: Speci men Type: BLOOD SPECIMENOrdering Facility: [facility] Address: [address] [place] [address] Performed By: #### 2 4321-2, 2777-, , HFP ####[facility] LABORATORYCLIA [id number] [address] [place] Bilirubin.conjugated [Mass/Vol] mg/dL Normal <0.2 [facility] Comment on above: Order Comment: Speci men Type: BLOOD SPECIMENOrdering Facility: [facility] Address: [address] [place] [address] Performed By: #### 2 4321-2, 27711-04, , HFP ####[facility] LABORATORYCLIA [id number] [address] STATES OF [facility] Protein [Mass/Vol] 6.4 g/dL Normal 6.3-8.0 [facility] Comment on above: Order Comment: Speci men Type: BLOOD SPECIMENOrdering Facility: [facility] Address: [address] [place] [address] Performed By: #### 2 4321-2, 27711-04, , HFP ####[facility] LABORATORYCLIA [id number] [address] [place] Magnesium SerPl-mCncon 08-07 Magnesium [Mass/Vol] 2.3 mg/dL Normal 1.7-2.3 [facility] Comment on above: Order Comment: Speci men Type: BLOOD SPECIMENOrdering Facility: [facility] Address: [address] [place] [address] Performed By: #### 2 4321-2, 277-1, , HFP ####[facility] LABORATORYCLIA [id number] [address] [place] NURSING PROGon 08-07-2021 NURSING PROG Normal [facility] Phosphate SerPl-mCncon 08-07 Phosphate [Mass/Vol] 3.5 mg/dL Normal 2.7-4.8 [facility] Comment on above: Order Comment: Speci men Type: BLOOD SPECIMENOrdering Facility: [facility] Address: [address] [place] [address] Performed By: #### 2 4321-2, 277-1, , HFP ####[facility] LABORATORYCLIA [id number] [address] [place] ANES POSTPROC EVALon 022 ANES POSTPROC EVAL Normal [facility] Basic metabolic 2000 panelon 08-06-2021 Anion gap [Moles/Vol] 11 mmol/L Normal 9-18 [facility] Comment on above: Order Comment: Speci men Type: BLOOD SPECIMENOrdering Facility: [facility] Address: [address] [place] [address] Performed By: #### 2 4321-2, 2776-05, ####[facility] LABORATORYCLIA [id number] [place] [address] [place] Calcium [Mass/Vol] 8.2 mg/dL Low 8.5-10.2 [facility] Comment on above: Order Comment: Speci men Type: BLOOD SPECIMENOrdering Facility: [facility] Address: [address] [place] [address] Performed By: #### 2 4321-2, 2776-, ####[facility]ORATORYCLIA [id number] [place] [address] [place] Chloride [Moles/Vol] 100 mmol/L Normal 97-105 [facility] Comment on above: Order Comment: Speci men Type: BLOOD SPECIMENOrdering Facility: [facility] Address: [address] [place] [address] Performed By: #### 2 4321-2, 2776-05, ####[facility] LABORATORYCLIA [id number] [place] [address] [place] CO2 [Moles/Vol] 23 mmol/L Normal 22-30 [facility] Comment on above: Order Comment: Speci men Type: BLOOD SPECIMENOrdering Facility: [facility] Address: [address] [place] [address] Performed By: #### 2 4321-2, 2776-05, ####[facility] LABORATORYCLIA [id number] [place] [address] [place] [facility] Creatinine [Mass/Vol] 0.55 mg/dL Low 0.73-1.22 [facility] Comment on above: Order Comment: Speci men Type: BLOOD SPECIMENOrdering Facility: [facility] Address: [address] [place] [address] Performed By: #### 2 432-2, 2776-05, ####[facility] BENDIA [id number] [address] STATES OF [facility] ESTIMATED GLOMERULAR FILTRATION RATE 107 mL/min/1.73m??? Normal >=60 [facility] Comment on above: Order Comment: Speci men Type: BLOOD SPECIMENOrdering Facility: [facility] Address: [address] [place] [address] Result Comment: Luzmaria mated Glomerular Filtration Rate [...] #### 2 4321-2, 2776-05, ####[facility]ORATORYCLIA [id number] [place] [address] [place] Glucose [Mass/Vol] 275 mg/dL High 74-99 [facility] Comment on above: Order Comment: Speci men Type: BLOOD SPECIMENOrdering Facility: [facility] Address: [address] [place], [place] [id number] Result Comment: The [place] [employer] (ADA) provides guidance for cutoff [...] Standards of Medical Care in Diabetes 2016, [place] [employer]. Diabetes Care. 2016.39(Suppl 1). Performed By: #### 2 4321-2, 2776-05, ####[facility]ORATORYCLIA [id number] [place] [address] [place] Potassium [Moles/Vol] 3.6 mmol/L Low 3.7-5.1 [facility] Comment on above: Order Comment: Shira feldman Type: BLOOD SPECIMENOrdering Facility: [facility] Address: [address] [place], [place] [id number] Performed By: #### 2 4321-2, 2776-05, ####[facility] LABORATORYCLIA [id number] [place] [address] [place] Sodium [Moles/Vol] 134 mmol/L Low 136-144 [facility] Comment on above: Order Comment: Johni men Type: BLOOD SPECIMENOrdering Facility: [facility] Address: [address] [id number] Performed By: #### 2 4321-2, 2776-05, ####[facility] LABORATORYCLIA [id number] [place] [address] [place] Urea nitrogen [Mass/Vol] 29 mg/dL High 9-24 [facility] Comment on above: Order Comment: Speci men Type: BLOOD SPECIMENOrdering Facility: [facility] Address: [address] [place] [address] Performed By: #### 2 4321-2, 2777-1, 64953-7 ####[facility] LABORATORYCLIA [id number] [address] STATES OF [facility] CBC W Auto Differential pane l (Bld)on 08-06-2021 Basophils (Bld) [#/Vol] 0.03 10*3/uL Normal <0.11 [facility] Comment on above: Order Comment: Speci men Type: BLOOD SPECIMENOrdering Facility: [facility] Address: [address] [place] [address] Performed By: #### 5 7021-8 ####[facility] LABORATORYCLIA [id number] [address] [place] Basophils/100 WBC (Bld) 0.3 % Normal [facility] Comment on above: Order Comment: Speci men Type: BLOOD SPECIMENOrdering Facility: [facility] Address: [address] [place] [address] Performed By: #### 5 7021-8 ####[facility] LABORATORYCLIA [id number] [address] Differential cell count method Nom (Bld) Auto Normal [facility] Comment on above: Order Comment: Speci men Type: BLOOD SPECIMENOrdering Facility: [facility] Address: [address] [place] [address] Performed By: #### 5 7021-8 ####[facility] LABORATORYCLIA [id number] [address] [place] Eosinophils (Bld) [#/Vol] 0.18 10*3/uL Normal <0.46 [facility] Comment on above: Order Comment: Speci men Type: BLOOD SPECIMENOrdering Facility: [facility] Address: [address] [place] [address] Performed By: #### 5 7021-8 ####[facility]ORATORYCLIA [id number] [address] Eosinophils/100 WBC (Bld) 1.6 % Normal [facility] Comment on above: Order Comment: Speci men Type: BLOOD SPECIMENOrdering Facility: [facility] Address: [address] [place] [address] Performed By: #### 5 7021-8 ####[facility] LABORATORYCLIA [id number] [address] Erythrocyte distribution width (RBC) [Ratio] 17.9 % High 11.5-15.0 [facility] Comment on above: Order Comment: Speci men Type: BLOOD SPECIMENOrdering Facility: [facility] Address: [address] [place] [address] Performed By: #### 5 7021-8 ####[facility] LABORATORYCLIA [id number] [address] Hematocrit (Bld) [Volume fraction] 27.6 % Low 39.0-51.0 [facility] Comment on above: Order Comment: Speci men Type: BLOOD SPECIMENOrdering Facility: [facility] Address: [address] [place] [address] Performed By: #### 5 7021-8 ####[facility] LABORATORYCLIA [id number] [address] [place] Hemoglobin (Bld) [Mass/Vol] 8.5 g/dL Low 13.0-17.0 [facility] Comment on above: Order Comment: Speci men Type: BLOOD SPECIMENOrdering Facility: [facility] Address: [address] [place] [address] Performed By: #### 5 7021-8 ####[facility] LABORATORYCLIA [id number] [address] IMMATURE GRAN % 0.6 % Normal [facility] Comment on above: Order Comment: Speci men Type: BLOOD SPECIMENOrdering Facility: [facility] Address: [address] [place] [address] Performed By: #### 5 7021-8 ####[facility] LABORATORYCLIA [id number] [address] IMMATURE GRAN ABS 0.07 k/uL Normal <0.10 [facility] Comment on above: Order Comment: Speci men Type: BLOOD SPECIMENOrdering Facility: [facility] Address: [address] [place] [address] Performed By: #### 5 7021-8 ####[facility] LABORATORYCLIA [id number] [address] Lymphocytes (Bld) [#/Vol] 1.81 10*3/uL Normal 1.00-4.00 [facility] Comment on above: Order Comment: Speci men Type: BLOOD SPECIMENOrdering Facility: [facility] Address: [address] [place] [address] Performed By: #### 5 7021-8 ####[facility] LABORATORYCLIA [id number] [address] Lymphocytes/100 WBC (Bld) 15.7 % Normal [facility] Comment on above: Order Comment: Speci men Type: BLOOD SPECIMENOrdering Facility: [facility] Address: [address] [place] [address] Performed By: #### 5 7021-8 ####[facility] LABORATORYCLIA [id number] [address] MCH (RBC) [Entitic mass] 28.6 pg Normal 26.0-34.0 [facility] Comment on above: Order Comment: Speci men Type: BLOOD SPECIMENOrdering Facility: [facility] Address: [address] [place] [address] Performed By: #### 5 7021-8 ####[facility] LABORATORYCLIA [id number] [address] MCHC (RBC) [Mass/Vol] 30.8 g/dL Normal 30.5-36.0 [facility] Comment on above: Order Comment: Speci men Type: BLOOD SPECIMENOrdering Facility: [facility] Address: [address] [place] [address] Performed By: #### 5 7021-8 ####[facility] LABORATORYCLIA [id number] [address] [place] MCV (RBC) [Entitic vol] 92.9 fL Normal 80.0-100.0 [facility] Comment on above: Order Comment: Speci men Type: BLOOD SPECIMENOrdering Facility: [facility] Address: [address] [place] [address] Performed By: #### 5 7021-8 ####[facility] LABORATORYCLIA [id number] [address] [place] Monocytes (Bld) [#/Vol] 0.63 10*3/uL Normal <0.87 [facility] Comment on above: Order Comment: Speci men Type: BLOOD SPECIMENOrdering Facility: [facility] Address: [address] [place] [address] Performed By: #### 5 7021-8 ####[facility] LABORATORYCLIA [id number] [address] STATES [facility] Monocytes/100 WBC (Bld) 5.5 % Normal [facility] Comment on above: Order Comment: Speci men Type: BLOOD SPECIMENOrdering Facility: [facility] Address: [address] [place] [address] Performed By: #### 5 7021-8 ####[facility] LABORATORYCLIA [id number] [address] [place] Neutrophils (Bld) [#/Vol] 8.78 10*3/uL High 1.45-7.50 [facility] Comment on above: Order Comment: Speci men Type: BLOOD SPECIMENOrdering Facility: [facility] Address: [address] [place] [address] Performed By: #### 5 7021-8 ####[facility] LABORATORYCLIA [id number] [address] Neutrophils/100 WBC (Bld) 76.3 % Normal [facility] Comment on above: Order Comment: Speci men Type: BLOOD SPECIMENOrdering Facility: [facility] Address: [address] [address] Performed By: #### 5 7021-8 ####[facility] LABORATORYCLIA [id number] [address] [place] Nucleated RBC (Bld) [#/Vol] 10*3/uL Normal <0.01 [facility] Comment on above: Order Comment: Speci men Type: BLOOD SPECIMENOrdering Facility: [facility] Address: [address] [place] [address] Performed By: #### 5 7021-8 ####[facility] LABORATORYCLIA [id number] [address] Nucleated RBC/100 WBC (Bld) [Ratio] 0.0 /100 WBC Normal [facility] Comment on above: Order Comment: Speci men Type: BLOOD SPECIMENOrdering Facility: [facility] Address: [address] [place] [address] Performed By: #### 5 7021-8 ####[facility] LABORATORYCLIA [id number] [address] Platelet mean volume (Bld) [Entitic vol] 9.9 fL Normal 9.0-12.7 [facility] Comment on above: Order Comment: Speci men Type: BLOOD SPECIMENOrdering Facility: [facility] Address: [address] Performed By: #### 5 7021-8 ####[facility] LABORATORYCLIA [id number] [address] [place] Platelets (Bld) [#/Vol] 230 10*3/uL Normal 150-400 [facility] Comment on above: Order Comment: Speci men Type: BLOOD SPECIMENOrdering Facility: [facility] Address: [address] [place], [place] [address] Performed By: #### 5 7021-8 ####[facility] LABORATORYCLIA [id number] [address] OF [facility] RBC (Bld) [#/Vol] 2.97 10*6/uL Low 4.20-6.00 [facility] Comment on above: Order Comment: Speci men Type: BLOOD SPECIMENOrdering Facility: [facility] Address: [address] [place] [address] Performed By: #### 5 7021-8 ####[facility] LABORATORYCLIA [id number] [address] WBC (Bld) [#/Vol] 11.50 10*3/uL High 3.70-11.00 [facility] Comment on above: Order Comment: Speci men Type: BLOOD SPECIMENOrdering Facility: [facility] Address: [address] [place] [address] Performed By: #### 5 7021-8 ####[facility] LABORATORYCLIA [id number] [address] CONSULT PROGon 08-06-2021 CONSULT PROG Normal [facility] Magnesium SerPl-mCncon 08-06 Magnesium [Mass/Vol] 1.9 mg/dL Normal 1.7-2.3 [facility] Comment on above: Order Comment: Speci men Type: BLOOD SPECIMENOrdering Facility: [facility] Address: [address] [place] [address] Performed By: #### 2 4321-2, 2777-1, 90339-8 ####[facility] LABORATORYCLIA [id number] [address] NURSING PROGon 08-06-2021 NURSING PROG Normal [facility] OPERATIVE NOon 08-06-2021 OPERATIVE NO Normal [facility] Phosphate SerPl-mCncon 08-06 Phosphate [Mass/Vol] 4.2 mg/dL Normal 2.7-4.8 [facility] Comment on above: Order Comment: Speci men Type: BLOOD SPECIMENOrdering Facility: [facility] Address: [address] [place] [address] Performed By: #### 2 4321-2, 2777-1, 55418-3 ####[facility] LABORATORYCLIA [id number] [place] [address] [place] ALLIED HEALTHon 08-05-2021 [...] By: #### 3 2355-0 ####[facility]ORATORYCLIA [id number] [place] [address] [place] Bacteria Ur Culton Bacteria identified Cx Nom (U) CULTURE, URINE: No growth (<1,000 CFU/ml) Normal [facility] Comment on above: Performed By: #### 6 30-4 ####[facility] LABORATORYCLIA [id number] [place] [address] [place] Basic metabolic 2000 panelon 08-05-2021 Anion gap [Moles/Vol] 7 mmol/L Low 9-18 [facility] Comment on above: Order Comment: Speci men Type: BLOOD SPECIMENOrdering Facility: [facility] Address: [address] [place] [address] Performed By: #### 2 4321-2 ####[facility] LABORATORYCLIA [id number] [place] [address] [place] Calcium [Mass/Vol] 9.5 mg/dL Normal 8.5-10.2 [facility] Comment on above: Order Comment: Speci men Type: BLOOD SPECIMENOrdering Facility: [facility] Address: [address] [address] Performed By: #### 2 4321-2 ####[facility] LABORATORYCLIA [id number] [address] [place] Chloride [Moles/Vol] 97 mmol/L Normal 97-105 [facility] Comment on above: Order Comment: Speci men Type: BLOOD SPECIMENOrdering Facility: [facility] Address: [address] [place] [address] Performed By: #### 2 4321-2 ####[facility] LABORATORYCLIA [id number] [address] [place] CO2 [Moles/Vol] 30 mmol/L Normal 22-30 [facility] Comment on above: Order Comment: Speci men Type: BLOOD SPECIMENOrdering Facility: [facility] Address: [address] [place] [address] Performed By: #### 2 4321-2 ####[facility] LABORATORYCLIA [id number] [address] STATES OF [facility] Creatinine [Mass/Vol] 0.61 mg/dL Low 0.73-1.22 [facility] Comment on above: Order Comment: Speci men Type: BLOOD SPECIMENOrdering Facility: [facility] Address: [address] [place] [address] Performed By: #### 2 4321-2 ####[facility] LABORATORYCLIA [id number] [address] ESTIMATED GLOMERULAR FILTRATION RATE 104 mL/min/1.73m??? Normal >=60 [facility] Comment on above: Order Comment: Speci men Type: BLOOD SPECIMENOrdering Facility: [facility] Address: [address] [place] [address] Result Comment: Luzmaria mated Glomerular Filtration Rate [...] By: #### 2 4321-2 ####[facility] LABORATORYCLIA [id number] [place] [address] [place] Glucose [Mass/Vol] 124 mg/dL High 74-99 [facility] Comment on above: Order Comment: Shira feldman Type: BLOOD SPECIMENOrdering Facility: [facility] Address: [address] [place] [address] Result Comment: The [place] [employer] (ADA) provides guidance for cutoff [...] Standards of Medical Care in Diabetes 2016, [place] [employer]. Diabetes Care. 2016.39(Suppl 1). Performed By: #### 2 4321-2 ####[facility] LABORATORYCLIA [id number] [place] [address] [place] Potassium [Moles/Vol] 4.9 mmol/L Normal 3.7-5.1 [facility] Comment on above: Order Comment: Shira feldman Type: BLOOD SPECIMENOrdering Facility: [facility] Address: [address] [address] Performed By: #### 2 4321-2 ####[facility] LABORATORYCLIA [id number] [place] [address] [place] Sodium [Moles/Vol] 134 mmol/L Low 136-144 [facility] Comment on above: Order Comment: Shira feldman Type: BLOOD SPECIMENOrdering Facility: [facility] Address: [address] [address] Performed By: #### 2 4321-2 ####[facility] LABORATORYCLIA [id number] [place] [address] [place] Urea nitrogen [Mass/Vol] 40 mg/dL High 9-24 [facility] Comment on above: Order Comment: Speci men Type: BLOOD SPECIMENOrdering Facility: [facility] Address: [address] [place] [address] Performed By: #### 2 4321-2 ####[facility] LABORATORYCLIA [id number] [address] [place] CBC W Auto Differential pane l (Bld)on 08-05-2021 Basophils (Bld) [#/Vol] 0.04 10*3/uL Normal <0.11 [facility] Comment on above: Order Comment: Speci men Type: BLOOD SPECIMENOrdering Facility: [facility] Address: [address] [place] [address] Performed By: #### 5 7021-8 ####[facility] LABORATORYCLIA [id number] [address] [place] Basophils/100 WBC (Bld) 0.3 % Normal [facility] Comment on above: Order Comment: Speci men Type: BLOOD SPECIMENOrdering Facility: [facility] Address: [address] [place] [address] Performed By: #### 5 7021-8 ####[facility] LABORATORYCLIA [id number] [address] Differential cell count method Nom (Bld) Auto Normal [facility] Comment on above: Order Comment: Speci men Type: BLOOD SPECIMENOrdering Facility: [facility] Address: [address] [place] [address] Performed By: #### 5 7021-8 ####[facility] LABORATORYCLIA [id number] [place] [address] [place] Eosinophils (Bld) [#/Vol] 0.42 10*3/uL Normal <0.46 [facility] Comment on above: Order Comment: Speci men Type: BLOOD SPECIMENOrdering Facility: [facility] Address: [address] [place] [address] Performed By: #### 5 7021-8 ####[facility] LABORATORYCLIA [id number] [address] Eosinophils/100 WBC (Bld) 3.6 % Normal [facility] Comment on above: Order Comment: Speci men Type: BLOOD SPECIMENOrdering Facility: [facility] Address: [address] [place] [address] Performed By: #### 5 7021-8 ####[facility] LABORATORYCLIA [id number] [address] Erythrocyte distribution width (RBC) [Ratio] 17.9 % High 11.5-15.0 [facility] Comment on above: Order Comment: Speci men Type: BLOOD SPECIMENOrdering Facility: [facility] Address: [address] [place] [address] Performed By: #### 5 7021-8 ####[facility] LABORATORYCLIA [id number] [address] Hematocrit (Bld) [Volume fraction] 30.8 % Low 39.0-51.0 [facility] Comment on above: Order Comment: Speci men Type: BLOOD SPECIMENOrdering Facility: [facility] Address: [address] [place] [address] Performed By: #### 5 7021-8 ####[facility] LABORATORYCLIA [id number] [address] Hemoglobin (Bld) [Mass/Vol] 9.6 g/dL Low 13.0-17.0 [facility] Comment on above: Order Comment: Speci men Type: BLOOD SPECIMENOrdering Facility: [facility] Address: [address] [place] [address] Performed By: #### 5 7021-8 ####[facility] LABORATORYCLIA [id number] [address] IMMATURE GRAN % 0.5 % Normal [facility] Comment on above: Order Comment: Speci men Type: BLOOD SPECIMENOrdering Facility: [facility] Address: [address] [place] [address] Performed By: #### 5 7021-8 ####[facility] LABORATORYCLIA [id number] [address] STATES OF [facility] IMMATURE GRAN ABS 0.06 k/uL Normal <0.10 [facility] Comment on above: Order Comment: Speci men Type: BLOOD SPECIMENOrdering Facility: [facility] Address: [address] [place] [address] Performed By: #### 5 7021-8 ####[facility] LABORATORYCLIA [id number] [address] Lymphocytes (Bld) [#/Vol] 2.17 10*3/uL Normal 1.00-4.00 [facility] Comment on above: Order Comment: Speci men Type: BLOOD SPECIMENOrdering Facility: [facility] Address: [address] [place] [address] Performed By: #### 5 7021-8 ####[facility] LABORATORYCLIA [id number] [address] Lymphocytes/100 WBC (Bld) 18.7 % Normal [facility] Comment on above: Order Comment: Speci men Type: BLOOD SPECIMENOrdering Facility: [facility] Address: [address] [place] [address] Performed By: #### 5 7021-8 ####[facility] LABORATORYCLIA [id number] [place] [address] [place] MCH (RBC) [Entitic mass] 28.9 pg Normal 26.0-34.0 [facility] Comment on above: Order Comment: Speci men Type: BLOOD SPECIMENOrdering Facility: [facility] Address: [address] [place] [address] Performed By: #### 5 7021-8 ####[facility]ATORYCLIA [id number] [address] STATES OF [facility] MCHC (RBC) [Mass/Vol] 31.2 g/dL Normal 30.5-36.0 [facility] Comment on above: Order Comment: Speci men Type: BLOOD SPECIMENOrdering Facility: [facility] Address: [address] [place] [address] Performed By: #### 5 7021-8 ####[facility] LABORATORYCLIA [id number] [address] [place] MCV (RBC) [Entitic vol] 92.8 fL Normal 80.0-100.0 [facility] Comment on above: Order Comment: Speci men Type: BLOOD SPECIMENOrdering Facility: [facility] Address: [address] [place] [address] Performed By: #### 5 7021-8 ####[facility] LABORATORYCLIA [id number] [address] Monocytes (Bld) [#/Vol] 0.71 10*3/uL Normal <0.87 [facility] Comment on above: Order Comment: Speci men Type: BLOOD SPECIMENOrdering Facility: [facility] Address: [address] [place] [address] Performed By: #### 5 7021-8 ####[facility] LABORATORYCLIA [id number] [address] Monocytes/100 WBC (Bld) 6.1 % Normal [facility] Comment on above: Order Comment: Speci men Type: BLOOD SPECIMENOrdering Facility: [facility] Address: [address] [place] [address] Performed By: #### 5 7021-8 ####[facility] LABORATORYCLIA [id number] [address] [place] Neutrophils (Bld) [#/Vol] 8.19 10*3/uL High 1.45-7.50 [facility] Comment on above: Order Comment: Speci men Type: BLOOD SPECIMENOrdering Facility: [facility] Address: [address] [address] Performed By: #### 5 7021-8 ####[facility] LABORATORYCLIA [id number] [address] Neutrophils/100 WBC (Bld) 70.8 % Normal [facility] Comment on above: Order Comment: Speci men Type: BLOOD SPECIMENOrdering Facility: [facility] Address: [address] [place] [address] Performed By: #### 5 7021-8 ####[facility] LABORATORYCLIA [id number] [address] [place] Nucleated RBC (Bld) [#/Vol] 10*3/uL Normal <0.01 [facility] Comment on above: Order Comment: Speci men Type: BLOOD SPECIMENOrdering Facility: [facility] Address: [address] [place] [address] Performed By: #### 5 7021-8 ####[facility] LABORATORYCLIA [id number] [address] [place] Nucleated RBC/100 WBC (Bld) [Ratio] 0.0 /100 WBC Normal [facility] Comment on above: Order Comment: Speci men Type: BLOOD SPECIMENOrdering Facility: [facility] Address: [address] [place] [address] Performed By: #### 5 7021-8 ####[facility] LABORATORYCLIA [id number] [place] [address] [place] Platelet mean volume (Bld) [Entitic vol] 9.6 fL Normal 9.0-12.7 [facility] Comment on above: Order Comment: Speci men Type: BLOOD SPECIMENOrdering Facility: [facility] Address: [address] [place] [address] Performed By: #### 5 7021-8 ####[facility] LABORATORYCLIA [id number] [place] [address] [place] Platelets (Bld) [#/Vol] 339 10*3/uL Normal 150-400 [facility] Comment on above: Order Comment: Speci men Type: BLOOD SPECIMENOrdering Facility: [facility] Address: [address] [place] [address] Performed By: #### 5 7021-8 ####[facility] LABORATORYCLIA [id number] [address] STATES OF [facility] RBC (Bld) [#/Vol] 3.32 10*6/uL Low 4.20-6.00 [facility] Comment on above: Order Comment: Speci men Type: BLOOD SPECIMENOrdering Facility: [facility] Address: [address] [place] [address] Performed By: #### 5 7021-8 ####[facility] LABORATORYCLIA [id number] [address] OF [facility] WBC (Bld) [#/Vol] 11.59 10*3/uL High 3.70-11.00 [facility] Comment on above: Order Comment: Speci men Type: BLOOD SPECIMENOrdering Facility: [facility] Address: [address] [place] [address] Performed By: #### 5 7021-8 ####[facility] LABORATORYCLIA [id number] [address] BRAIN WO IVCONon 08-06-19 CT BRAIN WO IVCON Normal [facility] Magnesium SerPl-mCncon 08-05 Magnesium [Mass/Vol] 2.2 mg/dL Normal 1.7-2.3 [facility] Comment on above: Order Comment: Speci men Type: BLOOD SPECIMENOrdering Facility: [facility] Address: [address] [place] [address] Performed By: #### 1 9123-9, 2777-1 ####[facility] LABORATORYCLIA [id number] [address] OF [facility] NURSING PROGon 08-05-2021 NURSING PROG Normal [facility] NURSING PROG Normal [facility] NUTRITIONon 08-05-2021 NUTRITION Normal [facility] OPERATIVE NOon 08-05-2021 OPERATIVE NO Normal [facility] Phosphate SerPl-mCncon 08-05 Phosphate [Mass/Vol] 4.6 mg/dL Normal 2.7-4.8 [facility] Comment on above: Order Comment: Speci men Type: BLOOD SPECIMENOrdering Facility: [facility] Address: [address] [place] [address] Performed By: #### 1 9123-9, 2777-1 ####[facility] LABORATORYCLIA [id number] [address] [place] THERAPY NTon 08-05-2021 THERAPY NT Normal [facility] THERAPY NT Normal [facility] Urinalysis complete panel (U )on 08-05-2021 Bilirubin Ql (U) Negative Normal Negative [facility] Comment on above: Order Comment: Speci men Type: URINE SPECIMENOrdering Facility: [facility] Address: [address] [place] [address] Performed By: #### 2 4356-8 ####[facility]ITAL[facility] [id number] [address] [place] Clarity (Unsp spec) Clear Normal Clear [facility] Comment on above: Order Comment: Speci men Type: URINE SPECIMENOrdering Facility: [facility] Address: [address] [place] [address] Performed By: #### 2 4356-8 ####[facility] LABORATORYCLIA [id number] [address] [place] Color (U) Light Yellow Normal yellow [facility] Comment on above: Order Comment: Speci men Type: URINE SPECIMENOrdering Facility: [facility] Address: [address] [place] [address] Performed By: #### 2 4356-8 ####[facility] LABORATORYCLIA [id number] [address] [place] Epithelial cells LM.HPF (Urine sed) [#/Area] Few Abnormal None Seen [facility] Comment on above: Order Comment: Speci men Type: URINE SPECIMENOrdering Facility: [facility] Address: [address] [place] [address] Performed By: #### 2 4356-8 ####[facility] LABORATORYCLIA [id number] [address] [place] Glucose Test strip (U) [Mass/Vol] Negative Normal Negative [facility] Comment on above: Order Comment: Speci men Type: URINE SPECIMENOrdering Facility: [facility] Address: [address] [place] [address] Performed By: #### 2 4356-8 ####[facility] LABORATORYCLIA [id number] [address] STATES OF [facility] Hemoglobin Ql (U) Negative Normal Negative [facility] Comment on above: Order Comment: Speci men Type: URINE SPECIMENOrdering Facility: [facility] Address: [address] [place] [address] Performed By: #### 2 4356-8 ####[facility] LABORATORYCLIA [id number] [address] STATES OF [facility] Hyaline casts (Urine sed) [#/Area] 1-3 /LPF Abnormal 0 /LPF [facility] Comment on above: Order Comment: Speci men Type: URINE SPECIMENOrdering Facility: [facility] Address: [address] [place] [address] Performed By: #### 2 4356-8 ####[facility] LABORATORYCLIA [id number] [address] [place] Ketones Ql (U) Negative Normal Negative [facility] Comment on above: Order Comment: Speci men Type: URINE SPECIMENOrdering Facility: [facility] Address: [address] [place] [address] Performed By: #### 2 4356-8 ####[facility] LABORATORYCLIA [id number] [address] [place] Leukocyte esterase Test strip Ql (U) Negative Normal Negative [facility] Comment on above: Order Comment: Speci men Type: URINE SPECIMENOrdering Facility: [facility] Address: [address] [place] [address] Performed By: #### 2 4356-8 ####[facility] LABORATORYCLIA [id number] [address] [place] Nitrite Ql (U) Negative Normal Negative [facility] Comment on above: Order Comment: Speci men Type: URINE SPECIMENOrdering Facility: [facility] Address: [address] [place] [address] Performed By: #### 2 4356-8 ####[facility] LABORATORYCLIA [id number] [address] pH (U) 6.0 [pH] Normal 5.0-8.0 [facility] Comment on above: Order Comment: Speci men Type: URINE SPECIMENOrdering Facility: [facility] Address: [address] [place] [address] Performed By: #### 2 4356-8 ####[facility] LABORATORYCLIA [id number] [address] STATES [facility] Protein (U) [Mass/Vol] Negative Normal Negative [facility] Comment on above: Order Comment: Speci men Type: URINE SPECIMENOrdering Facility: [facility] Address: [address] [place] [address] Performed By: #### 2 4356-8 ####[facility] LABORATORYCLIA [id number] [address] [place] RBC LM.HPF (Urine sed) [#/Area] 0-3 /HPF Normal 0-3 /HPF [facility] Comment on above: Order Comment: Speci men Type: URINE SPECIMENOrdering Facility: [facility] Address: [address] [place] [address] Performed By: #### 2 4356-8 ####[facility] LABORATORYCLIA [id number] [address] [place] Specific gravity (U) [Rel density] 1.015 Normal 1.005-1.030 [facility] Comment on above: Order Comment: Speci men Type: URINE SPECIMENOrdering Facility: [facility] Address: [address] [place] [address] Performed By: #### 2 4356-8 ####[facility] LABORATORYCLIA [id number] [address] [place] Urobilinogen Ql (U) Normal Normal Negative [facility] Comment on above: Order Comment: Speci men Type: URINE SPECIMENOrdering Facility: [facility] Address: [address] [place] [address] Performed By: #### 2 4356-8 ####[facility] LABORATORYCLIA [id number] [address] [place] WBC LM.HPF (Urine sed) [#/Area] 0-5 /HPF Normal 0-5 /HPF [facility] Comment on above: Order Comment: Speci men Type: URINE SPECIMENOrdering Facility: [facility] Address: [address] [place] [address] Performed By: #### 2 4356-8 ####[facility] LABORATORYCLIA [id number] [address] [place] XR ABDOMEN 1V [...] By: #### 6 00-7 ####[facility] LABORATORYCLIA [id number] [address] Bacteria identified Cx Nom (Bld) CULTURE, BLOOD: No growth 5 days Normal [facility] Comment on above: Performed By: #### 6 00-7 ####[facility] LABORATORYCLIA [id number] [address] [place] CBC W Auto Differential pane l (Bld)on 08-04-2021 Basophils (Bld) [#/Vol] 0.05 10*3/uL Normal <0.11 [facility] Comment on above: Order Comment: Speci men Type: BLOOD SPECIMENOrdering Facility: [facility] Address: [address] [place] [address] Performed By: #### 5 7021-8 ####[facility] LABORATORYCLIA [id number] [address] Basophils/100 WBC (Bld) 0.4 % Normal [facility] Comment on above: Order Comment: Speci men Type: BLOOD SPECIMENOrdering Facility: [facility] Address: [address] [place] [address] Performed By: #### 5 7021-8 ####[facility] LABORATORYCLIA [id number] [address] Differential cell count method Nom (Bld) Auto Normal [facility] Comment on above: Order Comment: Speci men Type: BLOOD SPECIMENOrdering Facility: [facility] Address: [address] [address] Performed By: #### 5 7021-8 ####[facility] LABORATORYCLIA [id number] [address] STATES OF [facility] Eosinophils (Bld) [#/Vol] 0.21 10*3/uL Normal <0.46 [facility] Comment on above: Order Comment: Speci men Type: BLOOD SPECIMENOrdering Facility: [facility] Address: [address] [address] Performed By: #### 5 7021-8 ####[facility] LABORATORYCLIA [id number] [address] Eosinophils/100 WBC (Bld) 1.7 % Normal [facility] Comment on above: Order Comment: Speci men Type: BLOOD SPECIMENOrdering Facility: [facility] Address: [address] [place] [address] Performed By: #### 5 7021-8 ####[facility] LABORATORYCLIA [id number] [address] Erythrocyte distribution width (RBC) [Ratio] 18.1 % High 11.5-15.0 [facility] Comment on above: Order Comment: Speci men Type: BLOOD SPECIMENOrdering Facility: [facility] Address: [address] [place] [address] Performed By: #### 5 7021-8 ####[facility] LABORATORYCLIA [id number] [address] Hematocrit (Bld) [Volume fraction] 32.0 % Low 39.0-51.0 [facility] Comment on above: Order Comment: Speci men Type: BLOOD SPECIMENOrdering Facility: [facility] Address: [address] [place] [address] Performed By: #### 5 7021-8 ####[facility] LABORATORYCLIA [id number] [address] [place] Hemoglobin (Bld) [Mass/Vol] 10.0 g/dL Low 13.0-17.0 [facility] Comment on above: Order Comment: Speci men Type: BLOOD SPECIMENOrdering Facility: [facility] Address: [address] [place] [address] Performed By: #### 5 7021-8 ####[facility] LABORATORYCLIA [id number] [address] IMMATURE GRAN % 0.6 % Normal [facility] Comment on above: Order Comment: Speci men Type: BLOOD SPECIMENOrdering Facility: [facility] Address: [address] [place] [address] Performed By: #### 5 7021-8 ####[facility] LABORATORYCLIA [id number] [address] IMMATURE GRAN ABS 0.08 k/uL Normal <0.10 [facility] Comment on above: Order Comment: Speci men Type: BLOOD SPECIMENOrdering Facility: [facility] Address: [address] [place] [address] Performed By: #### 5 7021-8 ####[facility] LABORATORYCLIA [id number] [address] Lymphocytes (Bld) [#/Vol] 2.55 10*3/uL Normal 1.00-4.00 [facility] Comment on above: Order Comment: Speci men Type: BLOOD SPECIMENOrdering Facility: [facility] Address: [address] [place] [address] Performed By: #### 5 7021-8 ####[facility] LABORATORYCLIA [id number] [address] Lymphocytes/100 WBC (Bld) 20.5 % Normal [facility] Comment on above: Order Comment: Speci men Type: BLOOD SPECIMENOrdering Facility: [facility] Address: [address] [place] [address] Performed By: #### 5 7021-8 ####[facility] LABORATORYCLIA [id number] [address] MCH (RBC) [Entitic mass] 28.9 pg Normal 26.0-34.0 [facility] Comment on above: Order Comment: Speci men Type: BLOOD SPECIMENOrdering Facility: [facility] Address: [address] [place] [address] Performed By: #### 5 7021-8 ####[facility] LABORATORYCLIA [id number] [address] MCHC (RBC) [Mass/Vol] 31.3 g/dL Normal 30.5-36.0 [facility] Comment on above: Order Comment: Speci men Type: BLOOD SPECIMENOrdering Facility: [facility] Address: [address] [address] Performed By: #### 5 7021-8 ####[facility] LABORATORYCLIA [id number] [address] [place] MCV (RBC) [Entitic vol] 92.5 fL Normal 80.0-100.0 [facility] Comment on above: Order Comment: Speci men Type: BLOOD SPECIMENOrdering Facility: [facility] Address: [address] [place] [address] Performed By: #### 5 7021-8 ####[facility] LABORATORYCLIA [id number] [address] [place] Monocytes (Bld) [#/Vol] 0.85 10*3/uL Normal <0.87 [facility] Comment on above: Order Comment: Speci men Type: BLOOD SPECIMENOrdering Facility: [facility] Address: [address] [place] [address] Performed By: #### 5 7021-8 ####[facility] LABORATORYCLIA [id number] [address] Monocytes/100 WBC (Bld) 6.8 % Normal [facility] Comment on above: Order Comment: Speci men Type: BLOOD SPECIMENOrdering Facility: [facility] Address: [address] [place] [address] Performed By: #### 5 7021-8 ####[facility] LABORATORYCLIA [id number] [address] [place] Neutrophils (Bld) [#/Vol] 8.68 10*3/uL High 1.45-7.50 [facility] Comment on above: Order Comment: Speci men Type: BLOOD SPECIMENOrdering Facility: [facility] Address: [address] [place] [address] Performed By: #### 5 7021-8 ####[facility] LABORATORYCLIA [id number] [address] Neutrophils/100 WBC (Bld) 70.0 % Normal [facility] Comment on above: Order Comment: Speci men Type: BLOOD SPECIMENOrdering Facility: [facility] Address: [address] [place] [address] Performed By: #### 5 7021-8 ####[facility] LABORATORYCLIA [id number] [address] [place] Nucleated RBC (Bld) [#/Vol] 10*3/uL Normal <0.01 [facility] Comment on above: Order Comment: Speci men Type: BLOOD SPECIMENOrdering Facility: [facility] Address: [address] [place] [address] Performed By: #### 5 7021-8 ####[facility] LABORATORYCLIA [id number] [address] Nucleated RBC/100 WBC (Bld) [Ratio] 0.0 /100 WBC Normal [facility] Comment on above: Order Comment: Speci men Type: BLOOD SPECIMENOrdering Facility: [facility] Address: [address] [place] [address] Performed By: #### 5 7021-8 ####[facility] LABORATORYCLIA [id number] [address] [place] Platelet mean volume (Bld) [Entitic vol] 10.0 fL Normal 9.0-12.7 [facility] Comment on above: Order Comment: Speci men Type: BLOOD SPECIMENOrdering Facility: [facility] Address: [address] Performed By: #### 5 7021-8 ####[facility] LABORATORYCLIA [id number] [address] [place] Platelets (Bld) [#/Vol] 393 10*3/uL Normal 150-400 [facility] Comment on above: Order Comment: Speci men Type: BLOOD SPECIMENOrdering Facility: [facility] Address: [address] [place] [address] Performed By: #### 5 7021-8 ####[facility] LABORATORYCLIA [id number] [address] OF [facility] RBC (Bld) [#/Vol] 3.46 10*6/uL Low 4.20-6.00 [facility] Comment on above: Order Comment: Speci men Type: BLOOD SPECIMENOrdering Facility: [facility] Address: [address] [place] [address] Performed By: #### 5 7021-8 ####[facility] LABORATORYCLIA [id number] [address] OF [facility] WBC (Bld) [#/Vol] 12.42 10*3/uL High 3.70-11.00 [facility] Comment on above: Order Comment: Speci men Type: BLOOD SPECIMENOrdering Facility: [facility] Address: [address] [place] [address] Performed By: #### 5 7021-8 ####[facility] LABORATORYCLIA [id number] [address] [place] BRAIN WO IVCONon 08-05-[address] BRAIN WO IVCON Normal [facility] Lactate (Bld) [Moles/Vol]on 08-04-2021 Lactate [Moles/Vol] 1.4 mmol/L Normal 0.5-2.2 [facility] Comment on above: Order Comment: Speci men Type: BLOOD SPECIMENOrdering Facility: [facility] Address: [address] [place] [address] Performed By: #### 3 2693-4 ####[facility] LABORATORYCLIA [id number] [address] PROCALCITONIN (LAB)on 2021 Procalcitonin [Mass/Vol] 0.08 ng/mL Normal <0.09 [facility] Comment on above: Order Comment: Speci men Type: BLOOD SPECIMENOrdering Facility: [facility] Address: [address] [place] [address] Result Comment: For a guided interpretation of test results, please visit the Change in Procalcitonin Calculator, [email or web address]. Performed By: #### P ROCAL ####[facility] LABORATORYCLIA [id number] [address] Prealbumin [Mass/Vol]on 07-07 Prealbumin Nephelometry [Mass/Vol] 35 mg/dL Normal 17-36 [facility] Comment on above: Order Comment: Speci men Type: BLOOD SPECIMENOrdering Facility: [facility] Address: [address] [place] [address] Performed By: #### 1 4338-8 ####[facility] LABORATORYCLIA [id number] [address] SARS-CoV-2 RNA Resp Ql MEGAN+p robeon 08-04-2021 SARS-CoV-2 (COVID-19) RNA MEGAN+probe Ql (Resp) COVID 19 RESULT: SARS-CoV-2 (Agent of COVID-19) Not Detected by RT-PCR or equivalent method. This test has been authorized by FDA under an Emergency Use Authorization (EUA). Normal [facility] Comment on above: Performed By: #### 9 4500-6 ####[facility] LABORATORYCLIA [id number] [address] TYPE AND SCREENon 08-04-2021 ABO O Normal [facility] Comment on above: Order Comment: Speci men Type: BLOOD SPECIMENOrdering Facility: [facility] Address: [address] [place] [address] Performed By: #### T SCR ####[facility] BLOOD BANKCLIA [id number] [address] HISTORICAL AB SCR STATUS Negative Normal [facility] Comment on above: Order Comment: Speci men Type: BLOOD SPECIMENOrdering Facility: [facility] Address: [address] [place] [address] Performed By: #### T SCR ####[facility] BLOOD BANKCLIA [id number] [address] OF [facility] Rh Nom (Bld) Positive Normal [facility] Comment on above: Order Comment: Speci men Type: BLOOD SPECIMENOrdering Facility: [facility] Address: [address] [place] [address] Performed By: #### T SCR ####[facility] BLOOD BANKCLIA [id number] [address] TYPE AND SCREEN EXPIRATION 08/07/2021 23:59 Normal [facility] Comment on above: Order Comment: Speci men Type: BLOOD SPECIMENOrdering Facility: [facility] Address: [address] [place] [address] Performed By: #### T SCR ####[facility] BLOOD BANKCLIA [id number] [address] [place] aPTT PPPon 08-04-2021 aPTT Coag (PPP) [Time] 51.8 s High 23.0-32.4 [facility] Comment on above: Order Comment: Speci men Type: BLOOD SPECIMENOrdering Facility: [facility] Address: [address] [place] [address] Performed By: #### 1 4979-9 ####[facility] LABORATORYCLIA [id number] [address] [place] Basic metabolic 2000 panelon 08-03-2021 Anion gap [Moles/Vol] 9 mmol/L Normal 9-18 [facility] Comment on above: Order Comment: Speci men Type: BLOOD SPECIMENOrdering Facility: [facility] Address: [address] [place] [address] Performed By: #### 2 4321-2, 06706-7, 2777-1 ####[facility] LABORATORYCLIA [id number] [address] STATES OF [facility] Calcium [Mass/Vol] 9.3 mg/dL Normal 8.5-10.2 [facility] Comment on above: Order Comment: Speci men Type: BLOOD SPECIMENOrdering Facility: [facility] Address: [address] [place], [place] [address] Performed By: #### 2 4321-2, , 2776-05 ####[facility] LABORATORYCLIA [id number] [place] [address] [place] Chloride [Moles/Vol] 97 mmol/L Normal 97-105 [facility] Comment on above: Order Comment: Speci men Type: BLOOD SPECIMENOrdering Facility: [facility] Address: [address] [place] [address] Performed By: #### 2 4321-2, , 2776-05 ####[facility] LABORATORYCLIA [id number] [address] [place] CO2 [Moles/Vol] 27 mmol/L Normal 22-30 [facility] Comment on above: Order Comment: Speci men Type: BLOOD SPECIMENOrdering Facility: [facility] Address: [address] [place] [address] Performed By: #### 2 4321-2, , 2776-05 ####[facility] LABORATORYCLIA [id number] [address] [place] Creatinine [Mass/Vol] 0.63 mg/dL Low 0.73-1.22 [facility] Comment on above: Order Comment: Speci men Type: BLOOD SPECIMENOrdering Facility: [facility] Address: [address] [place] [address] Performed By: #### 2 4321-2, , 2776-05 ####[facility] LABORATORYCLIA [id number] [address] OF [facility] ESTIMATED GLOMERULAR FILTRATION RATE 103 mL/min/1.73m??? Normal >=60 [facility] Comment on above: Order Comment: Speci men Type: BLOOD SPECIMENOrdering Facility: [facility] Address: [address] [place] [address] Result Comment: Luzmaria mated Glomerular Filtration Rate [...] 2 4321-2, , 2776-05 ####[facility] LABORATORYCLIA [id number] [place] [address] [place] Glucose [Mass/Vol] 136 mg/dL High 74-99 [facility] Comment on above: Order Comment: Shira feldman Type: BLOOD SPECIMENOrdering Facility: [facility] Address: [address] [place], [place] [address] Result Comment: The [place] [employer] (ADA) provides guidance for cutoff [...] Standards of Medical Care in Diabetes 2016, [place] [employer]. Diabetes Care. 2016.39(Suppl 1). Performed By: #### 2 4321-2, , 2776-05 ####[facility] LABORATORYCLIA [id number] [place] [address] [place] Potassium [Moles/Vol] 4.1 mmol/L Normal 3.7-5.1 [facility] Comment on above: Order Comment: Shira feldman Type: BLOOD SPECIMENOrdering Facility: [facility] Address: [address] [place] [address] Performed By: #### 2 4321-2, , 2776-05 ####[facility] LABORATORYCLIA [id number] [place] [address] [place] Sodium [Moles/Vol] 133 mmol/L Low 136-144 [facility] Comment on above: Order Comment: Speci men Type: BLOOD SPECIMENOrdering Facility: [facility] Address: [address] [place] [address] Performed By: #### 2 4321-2, 07215-6, 2777-1 ####[facility] LABORATORYCLIA [id number] [address] [place] Urea nitrogen [Mass/Vol] 40 mg/dL High 9-24 [facility] Comment on above: Order Comment: Speci men Type: BLOOD SPECIMENOrdering Facility: [facility] Address: [address] [place] [address] Performed By: #### 2 4321-2, , 27711-04 ####[facility] LABORATORYCLIA [id number] [address] CASE MANAGEMon 08-03-2021 CASE MANAGEM Normal [facility] CBC W Auto Differential pane l (Bld)on 08-03-2021 Basophils (Bld) [#/Vol] 0.06 10*3/uL Normal <0.11 [facility] Comment on above: Order Comment: Speci men Type: BLOOD SPECIMENOrdering Facility: [facility] Address: [address] [place] [address] Performed By: #### 5 7021-8 ####[facility] LABORATORYCLIA [id number] [address] [place] Basophils/100 WBC (Bld) 0.5 % Normal [facility] Comment on above: Order Comment: Speci men Type: BLOOD SPECIMENOrdering Facility: [facility] Address: [address] [place] [address] Performed By: #### 5 7021-8 ####[facility] LABORATORYCLIA [id number] [address] [place] Differential cell count method Nom (Bld) Auto Normal [facility] Comment on above: Order Comment: Speci men Type: BLOOD SPECIMENOrdering Facility: [facility] Address: [address] [address] Performed By: #### 5 7021-8 ####[facility] LABORATORYCLIA [id number] [address] Eosinophils (Bld) [#/Vol] 0.23 10*3/uL Normal <0.46 [facility] Comment on above: Order Comment: Speci men Type: BLOOD SPECIMENOrdering Facility: [facility] Address: [address] [place] [address] Performed By: #### 5 7021-8 ####[facility] LABORATORYCLIA [id number] [address] Eosinophils/100 WBC (Bld) 1.8 % Normal [facility] Comment on above: Order Comment: Speci men Type: BLOOD SPECIMENOrdering Facility: [facility] Address: [address] [place] [address] Performed By: #### 5 7021-8 ####[facility] LABORATORYCLIA [id number] [address] Erythrocyte distribution width (RBC) [Ratio] 17.6 % High 11.5-15.0 [facility] Comment on above: Order Comment: Speci men Type: BLOOD SPECIMENOrdering Facility: [facility] Address: [address] [place] [address] Performed By: #### 5 7021-8 ####[facility] LABORATORYCLIA [id number] [address] Hematocrit (Bld) [Volume fraction] 30.7 % Low 39.0-51.0 [facility] Comment on above: Order Comment: Speci men Type: BLOOD SPECIMENOrdering Facility: [facility] Address: [address] [place] [address] Performed By: #### 5 7021-8 ####[facility] LABORATORYCLIA [id number] [place] [address] [place] Hemoglobin (Bld) [Mass/Vol] 9.3 g/dL Low 13.0-17.0 [facility] Comment on above: Order Comment: Speci men Type: BLOOD SPECIMENOrdering Facility: [facility] Address: [address] [place] [address] Performed By: #### 5 7021-8 ####[facility]ATORYCLIA [id number] [address] [place] IMMATURE GRAN % 0.6 % Normal [facility] Comment on above: Order Comment: Speci men Type: BLOOD SPECIMENOrdering Facility: [facility] Address: [address] [place] [address] Performed By: #### 5 7021-8 ####[facility] LABORATORYCLIA [id number] [address] OF [facility] IMMATURE GRAN ABS 0.08 k/uL Normal <0.10 [facility] Comment on above: Order Comment: Speci men Type: BLOOD SPECIMENOrdering Facility: [facility] Address: [address] [place] [address] Performed By: #### 5 7021-8 ####[facility] LABORATORYCLIA [id number] [place] [address] [place] Lymphocytes (Bld) [#/Vol] 2.45 10*3/uL Normal 1.00-4.00 [facility] Comment on above: Order Comment: Speci men Type: BLOOD SPECIMENOrdering Facility: [facility] Address: [address] [place] [address] Performed By: #### 5 7021-8 ####[facility] LABORATORYCLIA [id number] [address] [place] Lymphocytes/100 WBC (Bld) 19.7 % Normal [facility] Comment on above: Order Comment: Speci men Type: BLOOD SPECIMENOrdering Facility: [facility] Address: [address] [place] [address] Performed By: #### 5 7021-8 ####[facility]ORATORYCLIA [id number] [address] MCH (RBC) [Entitic mass] 28.2 pg Normal 26.0-34.0 [facility] Comment on above: Order Comment: Speci men Type: BLOOD SPECIMENOrdering Facility: [facility] Address: [address] [place] [address] Performed By: #### 5 7021-8 ####[facility] LABORATORYCLIA [id number] [address] STATES OF [facility] MCHC (RBC) [Mass/Vol] 30.3 g/dL Low 30.5-36.0 [facility] Comment on above: Order Comment: Speci men Type: BLOOD SPECIMENOrdering Facility: [facility] Address: [address] [place] [address] Performed By: #### 5 7021-8 ####[facility] LABORATORYCLIA [id number] [address] OF [facility] MCV (RBC) [Entitic vol] 93.0 fL Normal 80.0-100.0 [facility] Comment on above: Order Comment: Speci men Type: BLOOD SPECIMENOrdering Facility: [facility] Address: [address] [place] [address] Performed By: #### 5 7021-8 ####[facility] LABORATORYCLIA [id number] [address] STATES OF [facility] Monocytes (Bld) [#/Vol] 0.72 10*3/uL Normal <0.87 [facility] Comment on above: Order Comment: Speci men Type: BLOOD SPECIMENOrdering Facility: [facility] Address: [address] [place] [address] Performed By: #### 5 7021-8 ####[facility] LABORATORYCLIA [id number] [address] Monocytes/100 WBC (Bld) 5.8 % Normal [facility] Comment on above: Order Comment: Speci men Type: BLOOD SPECIMENOrdering Facility: [facility] Address: [address] [address] Performed By: #### 5 7021-8 ####[facility] LABORATORYCLIA [id number] [address] [place] Neutrophils (Bld) [#/Vol] 8.92 10*3/uL High 1.45-7.50 [facility] Comment on above: Order Comment: Speci men Type: BLOOD SPECIMENOrdering Facility: [facility] Address: [address] [place] [address] Performed By: #### 5 7021-8 ####[facility] LABORATORYCLIA [id number] [address] STATES [facility] Neutrophils/100 WBC (Bld) 71.6 % Normal [facility] Comment on above: Order Comment: Speci men Type: BLOOD SPECIMENOrdering Facility: [facility] Address: [address] [place] [address] Performed By: #### 5 7021-8 ####[facility]ORATORYCLIA [id number] [address] [place] Nucleated RBC (Bld) [#/Vol] 10*3/uL Normal <0.01 [facility] Comment on above: Order Comment: Speci men Type: BLOOD SPECIMENOrdering Facility: [facility] Address: [address] [place] [address] Performed By: #### 5 7021-8 ####[facility] LABORATORYCLIA [id number] [address] [place] Nucleated RBC/100 WBC (Bld) [Ratio] 0.0 /100 WBC Normal [facility] Comment on above: Order Comment: Speci men Type: BLOOD SPECIMENOrdering Facility: [facility] Address: [address] [place] [address] Performed By: #### 5 7021-8 ####[facility] LABORATORYCLIA [id number] [address] [place] Platelet mean volume (Bld) [Entitic vol] 10.2 fL Normal 9.0-12.7 [facility] Comment on above: Order Comment: Speci men Type: BLOOD SPECIMENOrdering Facility: [facility] Address: [address] [place] [address] Performed By: #### 5 7021-8 ####[facility] LABORATORYCLIA [id number] [address] [place] Platelets (Bld) [#/Vol] 352 10*3/uL Normal 150-400 [facility] Comment on above: Order Comment: Speci men Type: BLOOD SPECIMENOrdering Facility: [facility] Address: [address] [place] [address] Performed By: #### 5 7021-8 ####[facility] LABORATORYCLIA [id number] [place] [address] [place] RBC (Bld) [#/Vol] 3.30 10*6/uL Low 4.20-6.00 [facility] Comment on above: Order Comment: Speci men Type: BLOOD SPECIMENOrdering Facility: [facility] Address: [address] [place] [address] Performed By: #### 5 7021-8 ####[facility] LABORATORYCLIA [id number] [address] OF [facility] WBC (Bld) [#/Vol] 12.46 10*3/uL High 3.70-11.00 [facility] Comment on above: Order Comment: Speci men Type: BLOOD SPECIMENOrdering Facility: [facility] Address: [address] [place] [address] Performed By: #### 5 7021-8 ####[facility] LABORATORYCLIA [id number] [address] OF [facility] CONSULT PROGon 08-03-2021 CONSULT PROG Normal [facility] Magnesium SerPl-mCncon 08-03 Magnesium [Mass/Vol] 2.2 mg/dL Normal 1.7-2.3 [facility] Comment on above: Order Comment: Speci men Type: BLOOD SPECIMENOrdering Facility: [facility] Address: [address] [place] [address] Performed By: #### 2 4321-2, 12609-0, 2777 ####[facility] LABORATORYCLIA [id number] [address] STATES OF [facility] NURSING PROGon 08-03-2021 NURSING PROG Normal [facility] Phosphate SerPl-mCncon 08-03 Phosphate [Mass/Vol] 4.2 mg/dL Normal 2.7-4.8 [facility] Comment on above: Order Comment: Speci men Type: BLOOD SPECIMENOrdering Facility: [facility] Address: [address] [place] [address] Performed By: #### 2 4321-2, , 2777 ####[facility] LABORATORYCLIA [id number] [address] aPTT PPPon 08-03-2021 aPTT Coag (PPP) [Time] 50.0 s High 23.0-32.4 [facility] Comment on above: Order Comment: Speci men Type: BLOOD SPECIMENOrdering Facility: [facility] Address: [address] [place] [address] Performed By: #### 1 4979-9 ####[facility] LABORATORYCLIA [id number] [address] STATES OF [facility] CBC W Auto Differential pane l (Bld)on 08-02-2021 Basophils (Bld) [#/Vol] 10*3/uL Normal <0.11 [facility] Comment on above: Order Comment: Speci men Type: BLOOD SPECIMENOrdering Facility: [facility] Address: [address] [place] [address] Performed By: #### 5 7021-8 ####[facility] LABORATORYCLIA [id number] [address] Basophils/100 WBC (Bld) 0.2 % Normal [facility] Comment on above: Order Comment: Speci men Type: BLOOD SPECIMENOrdering Facility: [facility] Address: [address] [place] [address] Performed By: #### 5 7021-8 ####[facility] LABORATORYCLIA [id number] [address] Differential cell count method Nom (Bld) Auto Normal [facility] Comment on above: Order Comment: Speci men Type: BLOOD SPECIMENOrdering Facility: [facility] Address: [address] [place] [address] Performed By: #### 5 7021-8 ####[facility] LABORATORYCLIA [id number] [address] Eosinophils (Bld) [#/Vol] 10*3/uL Normal <0.46 [facility] Comment on above: Order Comment: Speci men Type: BLOOD SPECIMENOrdering Facility: [facility] Address: [address] [place] [address] Performed By: #### 5 7021-8 ####[facility] LABORATORYCLIA [id number] [address] Eosinophils/100 WBC (Bld) 0.0 % Normal [facility] Comment on above: Order Comment: Speci men Type: BLOOD SPECIMENOrdering Facility: [facility] Address: [address] [place] [address] Performed By: #### 5 7021-8 ####[facility] LABORATORYCLIA [id number] [address] Erythrocyte distribution width (RBC) [Ratio] 17.3 % High 11.5-15.0 [facility] Comment on above: Order Comment: Speci men Type: BLOOD SPECIMENOrdering Facility: [facility] Address: [address] [place] [address] Performed By: #### 5 7021-8 ####[facility] LABORATORYCLIA [id number] [address] [place] Hematocrit (Bld) [Volume fraction] 30.8 % Low 39.0-51.0 [facility] Comment on above: Order Comment: Speci men Type: BLOOD SPECIMENOrdering Facility: [facility] Address: [address] [place] [address] Performed By: #### 5 7021-8 ####[facility] LABORATORYCLIA [id number] [address] [place] Hemoglobin (Bld) [Mass/Vol] 9.7 g/dL Low 13.0-17.0 [facility] Comment on above: Order Comment: Speci men Type: BLOOD SPECIMENOrdering Facility: [facility] Address: [address] [place] [address] Performed By: #### 5 7021-8 ####[facility] LABORATORYCLIA [id number] [address] [place] IMMATURE GRAN % 0.5 % Normal [facility] Comment on above: Order Comment: Speci men Type: BLOOD SPECIMENOrdering Facility: [facility] Address: [address] [place] [address] Performed By: #### 5 7021-8 ####[facility] LABORATORYCLIA [id number] [address] IMMATURE GRAN ABS 0.07 k/uL Normal <0.10 [facility] Comment on above: Order Comment: Speci men Type: BLOOD SPECIMENOrdering Facility: [facility] Address: [address] [place] [address] Performed By: #### 5 7021-8 ####[facility] LABORATORYCLIA [id number] [address] [place] Lymphocytes (Bld) [#/Vol] 1.60 10*3/uL Normal 1.00-4.00 [facility] Comment on above: Order Comment: Speci men Type: BLOOD SPECIMENOrdering Facility: [facility] Address: [address] [place] [address] Performed By: #### 5 7021-8 ####[facility]ORATORYCLIA [id number] [address] Lymphocytes/100 WBC (Bld) 12.1 % Normal [facility] Comment on above: Order Comment: Speci men Type: BLOOD SPECIMENOrdering Facility: [facility] Address: [address] [place] [address] Performed By: #### 5 7021-8 ####[facility] LABORATORYCLIA [id number] [address] MCH (RBC) [Entitic mass] 28.6 pg Normal 26.0-34.0 [facility] Comment on above: Order Comment: Speci men Type: BLOOD SPECIMENOrdering Facility: [facility] Address: [address] [place] [address] Performed By: #### 5 7021-8 ####[facility] LABORATORYCLIA [id number] [address] STATES OF [facility] MCHC (RBC) [Mass/Vol] 31.5 g/dL Normal 30.5-36.0 [facility] Comment on above: Order Comment: Speci men Type: BLOOD SPECIMENOrdering Facility: [facility] Address: [address] [place] [address] Performed By: #### 5 7021-8 ####[facility] LABORATORYCLIA [id number] [address] MCV (RBC) [Entitic vol] 90.9 fL Normal 80.0-100.0 [facility] Comment on above: Order Comment: Speci men Type: BLOOD SPECIMENOrdering Facility: [facility] Address: [address] [place] [address] Performed By: #### 5 7021-8 ####[facility] LABORATORYCLIA [id number] [address] Monocytes (Bld) [#/Vol] 0.39 10*3/uL Normal <0.87 [facility] Comment on above: Order Comment: Speci men Type: BLOOD SPECIMENOrdering Facility: [facility] Address: [address] [address] Performed By: #### 5 7021-8 ####[facility] LABORATORYCLIA [id number] [address] [place] Monocytes/100 WBC (Bld) 3.0 % Normal [facility] Comment on above: Order Comment: Speci men Type: BLOOD SPECIMENOrdering Facility: [facility] Address: [address] [place] [address] Performed By: #### 5 7021-8 ####[facility]ORATORYCLIA [id number] [place] [address] [place] Neutrophils (Bld) [#/Vol] 11.09 10*3/uL High 1.45-7.50 [facility] Comment on above: Order Comment: Speci men Type: BLOOD SPECIMENOrdering Facility: [facility] Address: [address] [place] [address] Performed By: #### 5 7021-8 ####[facility] LABORATORYCLIA [id number] [address] STATES [facility] Neutrophils/100 WBC (Bld) 84.2 % Normal [facility] Comment on above: Order Comment: Speci men Type: BLOOD SPECIMENOrdering Facility: [facility] Address: [address] [place] [address] Performed By: #### 5 7021-8 ####[facility]ATORYCLIA [id number] [address] [place] Nucleated RBC (Bld) [#/Vol] 10*3/uL Normal <0.01 [facility] Comment on above: Order Comment: Speci men Type: BLOOD SPECIMENOrdering Facility: [facility] Address: [address] [place] [address] Performed By: #### 5 7021-8 ####[facility]ORATORYCLIA [id number] [address] [place] Nucleated RBC/100 WBC (Bld) [Ratio] 0.0 /100 WBC Normal [facility] Comment on above: Order Comment: Speci men Type: BLOOD SPECIMENOrdering Facility: [facility] Address: [address] [place] [address] Performed By: #### 5 7021-8 ####[facility] LABORATORYCLIA [id number] [address] Platelet mean volume (Bld) [Entitic vol] 10.0 fL Normal 9.0-12.7 [facility] Comment on above: Order Comment: Speci men Type: BLOOD SPECIMENOrdering Facility: [facility] Address: [address] [place], [place] [address] Performed By: #### 5 7021-8 ####[facility] LABORATORYCLIA [id number] [address] [place] Platelets (Bld) [#/Vol] 358 10*3/uL Normal 150-400 [facility] Comment on above: Order Comment: Speci men Type: BLOOD SPECIMENOrdering Facility: [facility] Address: [address] [place] [address] Performed By: #### 5 7021-8 ####[facility] LABORATORYCLIA [id number] [address] [place] RBC (Bld) [#/Vol] 3.39 10*6/uL Low 4.20-6.00 [facility] Comment on above: Order Comment: Speci men Type: BLOOD SPECIMENOrdering Facility: [facility] Address: [address] [place], [place] [address] Performed By: #### 5 7021-8 ####[facility] LABORATORYCLIA [id number] [address] [place] WBC (Bld) [#/Vol] 13.17 10*3/uL High 3.70-11.00 [facility] Comment on above: Order Comment: Speci men Type: BLOOD SPECIMENOrdering Facility: [facility] Address: [address] [place] [address] Performed By: #### 5 7021-8 ####[facility] LABORATORYCLIA [id number] [address] OF [facility] NURSING PROGon 08-02-2021 NURSING PROG Normal [facility] THERAPY NTon 08-02-2021 THERAPY NT Normal [facility] aPTT PPPon 08-02-2021 aPTT Coag (PPP) [Time] 54.9 s High 23.0-32.4 [facility] Comment on above: Order Comment: Speci men Type: BLOOD SPECIMENOrdering Facility: [facility] Address: [address] [place] [address] Performed By: #### 1 4979-9 ####[facility] LABORATORYCLIA [id number] [address] OF [facility] ALLIED HEALTHon 08-01-2021 ALLIED HEALTH Normal [facility] ALLIED HEALTH Normal [facility] Basic metabolic 2000 panelon 08-01-2021 Anion gap [Moles/Vol] 12 mmol/L Normal 9-18 [facility] Comment on above: Order Comment: Speci men Type: BLOOD SPECIMENOrdering Facility: [facility] Address: [address] [place] [address] Performed By: #### 2 4321-2, 61892-7, 76067-1, 2777-1 ####[facility] LABORATORYCLIA [id number] [place] [address] [place] Calcium [Mass/Vol] 9.1 mg/dL Normal 8.5-10.2 [facility] Comment on above: Order Comment: Speci men Type: BLOOD SPECIMENOrdering Facility: [facility] Address: [address] [place] [address] Performed By: #### 2 4321-2, 42938-7, 31542-0, 2777-1 ####[facility] LABORATORYCLIA [id number] [place] [address] [place] Chloride [Moles/Vol] 96 mmol/L Low 97-105 [facility] Comment on above: Order Comment: Speci men Type: BLOOD SPECIMENOrdering Facility: [facility] Address: [address] [place] [address] Performed By: #### 2 4321-2, 26713-9, 38833-5, 2777-1 ####[facility] [id number] [address] STATES [facility] CO2 [Moles/Vol] 27 mmol/L Normal 22-30 [facility] Comment on above: Order Comment: Speci men Type: BLOOD SPECIMENOrdering Facility: [facility] Address: [address] [place] [address] Performed By: #### 2 4321-2, 17610-0, 24278-3, 2777-1 ####[facility] [id number] [address] Creatinine [Mass/Vol] 0.64 mg/dL Low 0.73-1.22 [facility] Comment on above: Order Comment: Speci men Type: BLOOD SPECIMENOrdering Facility: [facility] Address: [address] [place] [address] Performed By: #### 2 4321-2, 46454-5, 57945-8, 2777- ####[facility] [id number] [address] ESTIMATED GLOMERULAR FILTRATION RATE 102 mL/min/1.73m??? Normal >=60 [facility] Comment on above: Order Comment: Speci men Type: BLOOD SPECIMENOrdering Facility: [facility] Address: [address] [place] [address] Result Comment: Luzmaria mated Glomerular Filtration Rate [...] actual GFR. Performed By: #### 2 4321-2, 12894-2, 86927-6, 2777-1 ####[facility] LABORATORYCLIA [id number] [place] [address] [place] Glucose [Mass/Vol] 122 mg/dL High 74-99 [facility] Comment on above: Order Comment: Shira feldman Type: BLOOD SPECIMENOrdering Facility: [facility] Address: [address] [place], [place] [id number] Result Comment: The [place] [employer] (ADA) provides guidance for cutoff [...] Standards of Medical Care in Diabetes 2016, [place] [employer]. Diabetes Care. 2016.39(Suppl 1). Performed By: #### 2 4321-2, 79405-0, 85139-4, 2777-1 ####[facility] LABORATORYCLIA [id number] [place] [address] [place] Potassium [Moles/Vol] 4.2 mmol/L Normal 3.7-5.1 [facility] Comment on above: Order Comment: Shira feldman Type: BLOOD SPECIMENOrdering Facility: [facility] Address: [address] [place], [place] [id number] Performed By: #### 2 4321-2, 94845-2, 70610-8, 2777-1 ####[facility] LABORATORYCLIA [id number] [place] [address] [place] Sodium [Moles/Vol] 135 mmol/L Low 136-144 [facility] Comment on above: Order Comment: Shira feldman Type: BLOOD SPECIMENOrdering Facility: [facility] Address: [address] [id number] Performed By: #### 2 4321-2, 62525-8, 49996-4, 2777-1 ####[facility] LABORATORYCLIA [id number] [place] [address] [place] Urea nitrogen [Mass/Vol] 36 mg/dL High 9-24 [facility] Comment on above: Order Comment: Speci men Type: BLOOD SPECIMENOrdering Facility: [facility] Address: [address] [place] [address] Performed By: #### 2 4321-2, 03925-3, 02548-3, 2777-1 ####[facility] LABORATORYCLIA [id number] [address] [place] CASE MANAGEMon 08-01-2021 CASE MANAGEM Normal [facility] CBC W Auto Differential pane l (Bld)on 08-01-2021 Basophils (Bld) [#/Vol] 0.04 10*3/uL Normal <0.11 [facility] Comment on above: Order Comment: Speci men Type: BLOOD SPECIMENOrdering Facility: [facility] Address: [address] [place] [address] Performed By: #### 5 7021-8 ####[facility] LABORATORYCLIA [id number] [address] [place] Basophils/100 WBC (Bld) 0.3 % Normal [facility] Comment on above: Order Comment: Speci men Type: BLOOD SPECIMENOrdering Facility: [facility] Address: [address] [place] [address] Performed By: #### 5 7021-8 ####[facility] LABORATORYCLIA [id number] [address] [place] Differential cell count method Nom (Bld) Auto Normal [facility] Comment on above: Order Comment: Speci men Type: BLOOD SPECIMENOrdering Facility: [facility] Address: [address] [place] [address] Performed By: #### 5 7021-8 ####[facility] LABORATORYCLIA [id number] [place] [address] [place] Eosinophils (Bld) [#/Vol] 0.37 10*3/uL Normal <0.46 [facility] Comment on above: Order Comment: Speci men Type: BLOOD SPECIMENOrdering Facility: [facility] Address: [address] [place] [address] Performed By: #### 5 7021-8 ####[facility] LABORATORYCLIA [id number] [address] Eosinophils/100 WBC (Bld) 3.1 % Normal [facility] Comment on above: Order Comment: Speci men Type: BLOOD SPECIMENOrdering Facility: [facility] Address: [address] [place] [address] Performed By: #### 5 7021-8 ####[facility] LABORATORYCLIA [id number] [address] [place] Erythrocyte distribution width (RBC) [Ratio] 17.5 % High 11.5-15.0 [facility] Comment on above: Order Comment: Speci men Type: BLOOD SPECIMENOrdering Facility: [facility] Address: [address] [place] [address] Performed By: #### 5 7021-8 ####[facility] LABORATORYCLIA [id number] [address] STATES OF [facility] Hematocrit (Bld) [Volume fraction] 30.1 % Low 39.0-51.0 [facility] Comment on above: Order Comment: Speci men Type: BLOOD SPECIMENOrdering Facility: [facility] Address: [address] [place] [address] Performed By: #### 5 7021-8 ####[facility] LABORATORYCLIA [id number] [address] [place] Hemoglobin (Bld) [Mass/Vol] 9.1 g/dL Low 13.0-17.0 [facility] Comment on above: Order Comment: Speci men Type: BLOOD SPECIMENOrdering Facility: [facility] Address: [address] [place] [address] Performed By: #### 5 7021-8 ####[facility]ORATORYCLIA [id number] [address] IMMATURE GRAN % 0.6 % Normal [facility] Comment on above: Order Comment: Speci men Type: BLOOD SPECIMENOrdering Facility: [facility] Address: [address] [place] [address] Performed By: #### 5 7021-8 ####[facility] LABORATORYCLIA [id number] [address] IMMATURE GRAN ABS 0.07 k/uL Normal <0.10 [facility] Comment on above: Order Comment: Speci men Type: BLOOD SPECIMENOrdering Facility: [facility] Address: [address] [place] [address] Performed By: #### 5 7021-8 ####[facility] LABORATORYCLIA [id number] [address] STATES [facility] Lymphocytes (Bld) [#/Vol] 2.05 10*3/uL Normal 1.00-4.00 [facility] Comment on above: Order Comment: Speci men Type: BLOOD SPECIMENOrdering Facility: [facility] Address: [address] [place] [address] Performed By: #### 5 7021-8 ####[facility] LABORATORYCLIA [id number] [address] Lymphocytes/100 WBC (Bld) 17.1 % Normal [facility] Comment on above: Order Comment: Speci men Type: BLOOD SPECIMENOrdering Facility: [facility] Address: [address] [place] [address] Performed By: #### 5 7021-8 ####[facility] LABORATORYCLIA [id number] [address] STATES [facility] MCH (RBC) [Entitic mass] 27.7 pg Normal 26.0-34.0 [facility] Comment on above: Order Comment: Speci men Type: BLOOD SPECIMENOrdering Facility: [facility] Address: [address] [place] [address] Performed By: #### 5 7021-8 ####[facility] LABORATORYCLIA [id number] [address] STATES [facility] MCHC (RBC) [Mass/Vol] 30.2 g/dL Low 30.5-36.0 [facility] Comment on above: Order Comment: Speci men Type: BLOOD SPECIMENOrdering Facility: [facility] Address: [address] [place] [address] Performed By: #### 5 7021-8 ####[facility] LABORATORYCLIA [id number] [address] STATES OF [facility] MCV (RBC) [Entitic vol] 91.5 fL Normal 80.0-100.0 [facility] Comment on above: Order Comment: Speci men Type: BLOOD SPECIMENOrdering Facility: [facility] Address: [address] [place] [address] Performed By: #### 5 7021-8 ####[facility] LABORATORYCLIA [id number] [address] STATES OF [facility] Monocytes (Bld) [#/Vol] 0.53 10*3/uL Normal <0.87 [facility] Comment on above: Order Comment: Speci men Type: BLOOD SPECIMENOrdering Facility: [facility] Address: [address] [place] [address] Performed By: #### 5 7021-8 ####[facility] LABORATORYCLIA [id number] [address] Monocytes/100 WBC (Bld) 4.4 % Normal [facility] Comment on above: Order Comment: Speci men Type: BLOOD SPECIMENOrdering Facility: [facility] Address: [address] [place] [address] Performed By: #### 5 7021-8 ####[facility] LABORATORYCLIA [id number] [address] [place] Neutrophils (Bld) [#/Vol] 8.91 10*3/uL High 1.45-7.50 [facility] Comment on above: Order Comment: Speci men Type: BLOOD SPECIMENOrdering Facility: [facility] Address: [address] [place] [address] Performed By: #### 5 7021-8 ####[facility] LABORATORYCLIA [id number] [address] Neutrophils/100 WBC (Bld) 74.5 % Normal [facility] Comment on above: Order Comment: Speci men Type: BLOOD SPECIMENOrdering Facility: [facility] Address: [address] [place] [address] Performed By: #### 5 7021-8 ####[facility] LABORATORYCLIA [id number] [address] [place] Nucleated RBC (Bld) [#/Vol] 10*3/uL Normal <0.01 [facility] Comment on above: Order Comment: Speci men Type: BLOOD SPECIMENOrdering Facility: [facility] Address: [address] [place] [address] Performed By: #### 5 7021-8 ####[facility] LABORATORYCLIA [id number] [address] Nucleated RBC/100 WBC (Bld) [Ratio] 0.0 /100 WBC Normal [facility] Comment on above: Order Comment: Speci men Type: BLOOD SPECIMENOrdering Facility: [facility] Address: [address] [place] [address] Performed By: #### 5 7021-8 ####[facility] LABORATORYCLIA [id number] [address] [place] Platelet mean volume (Bld) [Entitic vol] 10.4 fL Normal 9.0-12.7 [facility] Comment on above: Order Comment: Speci men Type: BLOOD SPECIMENOrdering Facility: [facility] Address: [address] [place] [address] Performed By: #### 5 7021-8 ####[facility]ORATORYCLIA [id number] [address] OF [facility] Platelets (Bld) [#/Vol] 319 10*3/uL Normal 150-400 [facility] Comment on above: Order Comment: Speci men Type: BLOOD SPECIMENOrdering Facility: [facility] Address: [address] [place] [address] Performed By: #### 5 7021-8 ####[facility] LABORATORYCLIA [id number] [place] [address] [place] RBC (Bld) [#/Vol] 3.29 10*6/uL Low 4.20-6.00 [facility] Comment on above: Order Comment: Speci men Type: BLOOD SPECIMENOrdering Facility: [facility] Address: [address] [place] [address] Performed By: #### 5 7021-8 ####[facility] LABORATORYCLIA [id number] [address] WBC (Bld) [#/Vol] 11.97 10*3/uL High 3.70-11.00 [facility] Comment on above: Order Comment: Speci men Type: BLOOD SPECIMENOrdering Facility: [facility] Address: [address] [place] [address] Performed By: #### 5 7021-8 ####[facility] LABORATORYCLIA [id number] [address] [place] CT BRAIN WO IVCONon 08-02-19 CT BRAIN WO IVCON Normal [facility] Magnesium SerPl-mCncon 08-01 Magnesium [Mass/Vol] 2.4 mg/dL High 1.7-2.3 [facility] Comment on above: Order Comment: Speci men Type: BLOOD SPECIMENOrdering Facility: [facility] Address: [address] [place] [address] Performed By: #### 2 4321-2, 12403-4, 58802-5, 2777-1 ####[facility] LABORATORYCLIA [id number] [place] [address] NURSING PROGon 08-01-2021 NURSING PROG Normal [facility] NUTRITIONon 08-01-2021 NUTRITION Normal [facility] Phosphate SerPl-mCncon 08-01 Phosphate [Mass/Vol] 3.3 mg/dL Normal 2.7-4.8 [facility] Comment on above: Order Comment: Speci men Type: BLOOD SPECIMENOrdering Facility: [facility] Address: [address] [place] [address] Performed By: #### 2 4321-2, 52364-8, 44734-1, 2777-1 ####[facility] LABORATORYCLIA [id number] [address] Prealbumin [Mass/Vol]on 07-06 Prealbumin Nephelometry [Mass/Vol] 30 mg/dL Normal 17-36 [facility] Comment on above: Order Comment: Speci men Type: BLOOD SPECIMENOrdering Facility: [facility] Address: [address] [place] [address] Performed By: #### 2 4321-2, 73166-8, 77234-3, 2777-1 ####[facility] LABORATORYCLIA [id number] [address] THERAPY NTon 08-01-2021 THERAPY NT Normal [facility] THERAPY NT Normal [facility] TYPE AND SCREENon 08-01-2021 ABO O Normal [facility] Comment on above: Order Comment: Speci men Type: BLOOD SPECIMENOrdering Facility: [facility] Address: [address] [place] [address] Performed By: #### T SCR ####[facility] BLOOD BANKCLIA [id number] [address] HISTORICAL AB SCR STATUS Negative Normal [facility] Comment on above: Order Comment: Speci men Type: BLOOD SPECIMENOrdering Facility: [facility] Address: [address] [place] [address] Performed By: #### T SCR ####[facility] BLOOD BANKCLIA [id number] [address] Rh Nom (Bld) Positive Normal [facility] Comment on above: Order Comment: Speci men Type: BLOOD SPECIMENOrdering Facility: [facility] Address: [address] [place] [address] Performed By: #### T SCR ####[facility] BLOOD BANKCLIA [id number] [address] TYPE AND SCREEN EXPIRATION 08/04/2021 23:59 Normal [facility] Comment on above: Order Comment: Speci men Type: BLOOD SPECIMENOrdering Facility: [facility] Address: [address] [place] [address] Performed By: #### T SCR ####[facility] BLOOD BANKCLIA [id number] [address] XR CHEST 1V FRONTALon 2021 XR CHEST 1V FRONTAL Normal [facility] aPTT PPPon 08-01-2021 aPTT Coag (PPP) [Time] 50.9 s High 23.0-32.4 [facility] Comment on above: Order Comment: Speci men Type: BLOOD SPECIMENOrdering Facility: [facility] Address: [address] [place] [address] Performed By: #### 1 4979-9 ####[facility] LABORATORYCLIA [id number] [address] CBC W Auto Differential pane l (Bld)on 07-31-2021 Basophils (Bld) [#/Vol] 0.05 10*3/uL Normal <0.11 [facility] Comment on above: Order Comment: Speci men Type: BLOOD SPECIMENOrdering Facility: [facility] Address: [address] [place] [address] Performed By: #### 5 7021-8 ####[facility] LABORATORYCLIA [id number] [address] Basophils/100 WBC (Bld) 0.4 % Normal [facility] Comment on above: Order Comment: Speci men Type: BLOOD SPECIMENOrdering Facility: [facility] Address: [address] [place] [address] Performed By: #### 5 7021-8 ####[facility] LABORATORYCLIA [id number] [address] [place] Differential cell count method Nom (Bld) Auto Normal [facility] Comment on above: Order Comment: Speci men Type: BLOOD SPECIMENOrdering Facility: [facility] Address: [address] [place] [address] Performed By: #### 5 7021-8 ####[facility] LABORATORYCLIA [id number] [address] [place] Eosinophils (Bld) [#/Vol] 0.51 10*3/uL High <0.46 [facility] Comment on above: Order Comment: Speci men Type: BLOOD SPECIMENOrdering Facility: [facility] Address: [address] [place] [address] Performed By: #### 5 7021-8 ####[facility] LABORATORYCLIA [id number] [address] Eosinophils/100 WBC (Bld) 4.5 % Normal [facility] Comment on above: Order Comment: Speci men Type: BLOOD SPECIMENOrdering Facility: [facility] Address: [address] [place] [address] Performed By: #### 5 7021-8 ####[facility] LABORATORYCLIA [id number] [address] [place] Erythrocyte distribution width (RBC) [Ratio] 17.5 % High 11.5-15.0 [facility] Comment on above: Order Comment: Speci men Type: BLOOD SPECIMENOrdering Facility: [facility] Address: [address] [place] [address] Performed By: #### 5 7021-8 ####[facility] LABORATORYCLIA [id number] [address] Hematocrit (Bld) [Volume fraction] 30.4 % Low 39.0-51.0 [facility] Comment on above: Order Comment: Speci men Type: BLOOD SPECIMENOrdering Facility: [facility] Address: [address] [place] [address] Performed By: #### 5 7021-8 ####[facility] LABORATORYCLIA [id number] [address] [place] Hemoglobin (Bld) [Mass/Vol] 9.2 g/dL Low 13.0-17.0 [facility] Comment on above: Order Comment: Speci men Type: BLOOD SPECIMENOrdering Facility: [facility] Address: [address] [place] [address] Performed By: #### 5 7021-8 ####[facility] LABORATORYCLIA [id number] [address] IMMATURE GRAN % 0.5 % Normal [facility] Comment on above: Order Comment: Speci men Type: BLOOD SPECIMENOrdering Facility: [facility] Address: [address] [place] [address] Performed By: #### 5 7021-8 ####[facility] LABORATORYCLIA [id number] [address] IMMATURE GRAN ABS 0.06 k/uL Normal <0.10 [facility] Comment on above: Order Comment: Speci men Type: BLOOD SPECIMENOrdering Facility: [facility] Address: [address] [place] [address] Performed By: #### 5 7021-8 ####[facility] LABORATORYCLIA [id number] [address] [place] Lymphocytes (Bld) [#/Vol] 1.99 10*3/uL Normal 1.00-4.00 [facility] Comment on above: Order Comment: Speci men Type: BLOOD SPECIMENOrdering Facility: [facility] Address: [address] [place] [address] Performed By: #### 5 7021-8 ####[facility] LABORATORYCLIA [id number] [address] Lymphocytes/100 WBC (Bld) 17.6 % Normal [facility] Comment on above: Order Comment: Speci men Type: BLOOD SPECIMENOrdering Facility: [facility] Address: [address] [place] [address] Performed By: #### 5 7021-8 ####[facility] LABORATORYCLIA [id number] [address] MCH (RBC) [Entitic mass] 28.4 pg Normal 26.0-34.0 [facility] Comment on above: Order Comment: Speci men Type: BLOOD SPECIMENOrdering Facility: [facility] Address: [address] [place] [address] Performed By: #### 5 7021-8 ####[facility] LABORATORYCLIA [id number] [address] MCHC (RBC) [Mass/Vol] 30.3 g/dL Low 30.5-36.0 [facility] Comment on above: Order Comment: Speci men Type: BLOOD SPECIMENOrdering Facility: [facility] Address: [address] [place] [address] Performed By: #### 5 7021-8 ####[facility] LABORATORYCLIA [id number] [address] MCV (RBC) [Entitic vol] 93.8 fL Normal 80.0-100.0 [facility] Comment on above: Order Comment: Speci men Type: BLOOD SPECIMENOrdering Facility: [facility] Address: [address] [place] [address] Performed By: #### 5 7021-8 ####[facility] LABORATORYCLIA [id number] [address] Monocytes (Bld) [#/Vol] 0.57 10*3/uL Normal <0.87 [facility] Comment on above: Order Comment: Speci men Type: BLOOD SPECIMENOrdering Facility: [facility] Address: [address] [place] [address] Performed By: #### 5 7021-8 ####[facility] LABORATORYCLIA [id number] [address] [place] Monocytes/100 WBC (Bld) 5.0 % Normal [facility] Comment on above: Order Comment: Speci men Type: BLOOD SPECIMENOrdering Facility: [facility] Address: [address] [place] [address] Performed By: #### 5 7021-8 ####[facility]ORATORYCLIA [id number] [place] [address] [place] Neutrophils (Bld) [#/Vol] 8.12 10*3/uL High 1.45-7.50 [facility] Comment on above: Order Comment: Speci men Type: BLOOD SPECIMENOrdering Facility: [facility] Address: [address] [place] [address] Performed By: #### 5 7021-8 ####[facility] LABORATORYCLIA [id number] [address] [place] Neutrophils/100 WBC (Bld) 72.0 % Normal [facility] Comment on above: Order Comment: Speci men Type: BLOOD SPECIMENOrdering Facility: [facility] Address: [address] [place] [address] Performed By: #### 5 7021-8 ####[facility]ORATORYCLIA [id number] [place] [address] [place] Nucleated RBC (Bld) [#/Vol] 10*3/uL Normal <0.01 [facility] Comment on above: Order Comment: Speci men Type: BLOOD SPECIMENOrdering Facility: [facility] Address: [address] [place] [address] Performed By: #### 5 7021-8 ####[facility]ORATORYCLIA [id number] [address] [place] Nucleated RBC/100 WBC (Bld) [Ratio] 0.0 /100 WBC Normal [facility] Comment on above: Order Comment: Speci men Type: BLOOD SPECIMENOrdering Facility: [facility] Address: [address] [place] [address] Performed By: #### 5 7021-8 ####[facility] LABORATORYCLIA [id number] [place] [address] [place] Platelet mean volume (Bld) [Entitic vol] 10.9 fL Normal 9.0-12.7 [facility] Comment on above: Order Comment: Speci men Type: BLOOD SPECIMENOrdering Facility: [facility] Address: [address] [place] [address] Performed By: #### 5 7021-8 ####[facility] LABORATORYCLIA [id number] [place] [address] [place] Platelets (Bld) [#/Vol] 303 10*3/uL Normal 150-400 [facility] Comment on above: Order Comment: Speci men Type: BLOOD SPECIMENOrdering Facility: [facility] Address: [address] [place] [address] Performed By: #### 5 7021-8 ####[facility] LABORATORYCLIA [id number] [place] [address] [place] RBC (Bld) [#/Vol] 3.24 10*6/uL Low 4.20-6.00 [facility] Comment on above: Order Comment: Speci men Type: BLOOD SPECIMENOrdering Facility: [facility] Address: [address] [place] [address] Performed By: #### 5 7021-8 ####[facility] LABORATORYCLIA [id number] [place] [address] [place] WBC (Bld) [#/Vol] 11.30 10*3/uL High 3.70-11.00 [facility] Comment on above: Order Comment: Speci men Type: BLOOD SPECIMENOrdering Facility: [facility] Address: [address] [place] [address] Performed By: #### 5 7021-8 ####[facility] LABORATORYCLIA [id number] [address] NURSING PROGon 07-31-2021 NURSING PROG Normal [facility] aPTT PPPon 07-31-2021 aPTT Coag (PPP) [Time] 64.9 s High 23.0-32.4 [facility] Comment on above: Order Comment: Speci men Type: BLOOD SPECIMENOrdering Facility: [facility] Address: [address] [place] [address] Performed By: #### 1 4979-9 ####[facility] LABORATORYCLIA [id number] [address] OF [facility] ALLIED HEALTHon 07-30-2021 ALLIED HEALTH Normal [facility] Bacteria CSF Culton 07-31-19 22 Bacteria identified Cx Nom (CSF) CULTURE, CSF: No growth 14 days GRAM STAIN: No organisms seen Few Mononuclear cells Rare Polymorphonuclear leukocytes Gram stain performed on cytospun specimen. Normal [facility] Comment on above: Performed By: #### 6 06-4 ####[facility] LABORATORYCLIA [id number] [place] [address] [place] Basic metabolic 2000 panelon 07-30-2021 Anion gap [Moles/Vol] 9 mmol/L Normal 9-18 [facility] Comment on above: Order Comment: Speci men Type: BLOOD SPECIMENOrdering Facility: [facility] Address: [address] [place] [address] Performed By: #### 2 777-1, 64661-6, 25424-7 ####[facility] LABORATORYCLIA [id number] [address] STATES OF [facility] Calcium [Mass/Vol] 8.9 mg/dL Normal 8.5-10.2 [facility] Comment on above: Order Comment: Speci men Type: BLOOD SPECIMENOrdering Facility: [facility] Address: [address] [place] [address] Performed By: #### 2 777-1, 85053-0, ####[facility] LABORATORYCLIA [id number] [place] [address] [place] Chloride [Moles/Vol] 95 mmol/L Low 97-105 [facility] Comment on above: Order Comment: Speci men Type: BLOOD SPECIMENOrdering Facility: [facility] Address: [address] [place] [address] Performed By: #### 2 777-1, 90655-5, ####[facility] LABORATORYCLIA [id number] [place] [id number] [place] [place] CO2 [Moles/Vol] 28 mmol/L Normal 22-30 [facility] Comment on above: Order Comment: Speci men Type: BLOOD SPECIMENOrdering Facility: [facility] Address: [address] [place] [address] Performed By: #### 2 777-1, , ####[facility] [id number] [address] OF [facility] Creatinine [Mass/Vol] 0.67 mg/dL Low 0.73-1.22 [facility] Comment on above: Order Comment: Speci men Type: BLOOD SPECIMENOrdering Facility: [facility] Address: [address] [place] [address] Performed By: #### 2 777-1, , ####[facility] LABORATORYCLIA [id number] [address] ESTIMATED GLOMERULAR FILTRATION RATE 101 mL/min/1.73m??? Normal >=60 [facility] Comment on above: Order Comment: Speci men Type: BLOOD SPECIMENOrdering Facility: [facility] Address: [address] [place] [address] Result Comment: Luzmaria mated Glomerular Filtration Rate [...] actual GFR. Performed By: #### 2 777-1, 95998-8, ####[facility] LABORATORYCLIA [id number] [place] [address] [place] Glucose [Mass/Vol] 125 mg/dL High 74-99 [facility] Comment on above: Order Comment: Shira feldman Type: BLOOD SPECIMENOrdering Facility: [facility] Address: [address] [place], [place] [id number] Result Comment: The [place] Diabetes Association (ADA) provides guidance for cutoff [...] Standards of Medical Care in Diabetes 2016, [place] [employer] Association. Diabetes Care. 2016.39(Suppl 1). Performed By: #### 2 777-1, 34439-5, ####[facility] LABORATORYCLIA [id number] [place] [address] [place] Potassium [Moles/Vol] 3.9 mmol/L Normal 3.7-5.1 [facility] Comment on above: Order Comment: Shira feldman Type: BLOOD SPECIMENOrdering Facility: [facility] Address: [address] [place] [address] Performed By: #### 2 777-1, 06482-1, ####[facility] LABORATORYCLIA [id number] [place] [address] [place] Sodium [Moles/Vol] 132 mmol/L Low 136-144 [facility] Comment on above: Order Comment: Speci men Type: BLOOD SPECIMENOrdering Facility: [facility] Address: [address] [place] [address] Performed By: #### 2 777-1, 46578-7, ####[facility] LABORATORYCLIA [id number] [address] STATES [facility] Urea nitrogen [Mass/Vol] 38 mg/dL High 9-24 [facility] Comment on above: Order Comment: Speci men Type: BLOOD SPECIMENOrdering Facility: [facility] Address: [address] [place] [address] Performed By: #### 2 777-1, 69785-1, ####[facility] LABORATORYCLIA [id number] [address] [place] CBC W Auto Differential pane l (Bld)on 07-30-2021 Basophils (Bld) [#/Vol] 0.04 10*3/uL Normal <0.11 [facility] Comment on above: Order Comment: Speci men Type: BLOOD SPECIMENOrdering Facility: [facility] Address: [address] [place] [address] Performed By: #### 5 7021-8 ####[facility] LABORATORYCLIA [id number] [address] [place] Basophils/100 WBC (Bld) 0.4 % Normal [facility] Comment on above: Order Comment: Speci men Type: BLOOD SPECIMENOrdering Facility: [facility] Address: [address] [place] [address] Performed By: #### 5 7021-8 ####[facility] LABORATORYCLIA [id number] [address] Differential cell count method Nom (Bld) Auto Normal [facility] Comment on above: Order Comment: Speci men Type: BLOOD SPECIMENOrdering Facility: [facility] Address: [address] [place] [address] Performed By: #### 5 7021-8 ####[facility]ORATORYCLIA [id number] [address] [place] Eosinophils (Bld) [#/Vol] 0.30 10*3/uL Normal <0.46 [facility] Comment on above: Order Comment: Speci men Type: BLOOD SPECIMENOrdering Facility: [facility] Address: [address] [place] [address] Performed By: #### 5 7021-8 ####[facility] LABORATORYCLIA [id number] [address] Eosinophils/100 WBC (Bld) 2.7 % Normal [facility] Comment on above: Order Comment: Speci men Type: BLOOD SPECIMENOrdering Facility: [facility] Address: [address] [place] [address] Performed By: #### 5 7021-8 ####[facility] LABORATORYCLIA [id number] [address] Erythrocyte distribution width (RBC) [Ratio] 17.2 % High 11.5-15.0 [facility] Comment on above: Order Comment: Speci men Type: BLOOD SPECIMENOrdering Facility: [facility] Address: [address] [place] [address] Performed By: #### 5 7021-8 ####[facility] LABORATORYCLIA [id number] [address] [place] Hematocrit (Bld) [Volume fraction] 30.8 % Low 39.0-51.0 [facility] Comment on above: Order Comment: Speci men Type: BLOOD SPECIMENOrdering Facility: [facility] Address: [address] [place] [address] Performed By: #### 5 7021-8 ####[facility] LABORATORYCLIA [id number] [address] Hemoglobin (Bld) [Mass/Vol] 9.4 g/dL Low 13.0-17.0 [facility] Comment on above: Order Comment: Speci men Type: BLOOD SPECIMENOrdering Facility: [facility] Address: [address] [place] [address] Performed By: #### 5 7021-8 ####[facility]ATORYCLIA [id number] [address] IMMATURE GRAN % 0.5 % Normal [facility] Comment on above: Order Comment: Speci men Type: BLOOD SPECIMENOrdering Facility: [facility] Address: [address] [place] [address] Performed By: #### 5 7021-8 ####[facility] LABORATORYCLIA [id number] [address] IMMATURE GRAN ABS 0.06 k/uL Normal <0.10 [facility] Comment on above: Order Comment: Speci men Type: BLOOD SPECIMENOrdering Facility: [facility] Address: [address] [place] [address] Performed By: #### 5 7021-8 ####[facility] LABORATORYCLIA [id number] [address] Lymphocytes (Bld) [#/Vol] 1.68 10*3/uL Normal 1.00-4.00 [facility] Comment on above: Order Comment: Speci men Type: BLOOD SPECIMENOrdering Facility: [facility] Address: [address] [place] [address] Performed By: #### 5 7021-8 ####[facility]ORATORYCLIA [id number] [address] Lymphocytes/100 WBC (Bld) 15.3 % Normal [facility] Comment on above: Order Comment: Speci men Type: BLOOD SPECIMENOrdering Facility: [facility] Address: [address] [place] [address] Performed By: #### 5 7021-8 ####[facility]ATORYCLIA [id number] [address] [place] MCH (RBC) [Entitic mass] 28.0 pg Normal 26.0-34.0 [facility] Comment on above: Order Comment: Speci men Type: BLOOD SPECIMENOrdering Facility: [facility] Address: [address] [place] [address] Performed By: #### 5 7021-8 ####[facility] LABORATORYCLIA [id number] [address] MCHC (RBC) [Mass/Vol] 30.5 g/dL Normal 30.5-36.0 [facility] Comment on above: Order Comment: Speci men Type: BLOOD SPECIMENOrdering Facility: [facility] Address: [address] [place] [address] Performed By: #### 5 7021-8 ####[facility] LABORATORYCLIA [id number] [address] MCV (RBC) [Entitic vol] 91.7 fL Normal 80.0-100.0 [facility] Comment on above: Order Comment: Speci men Type: BLOOD SPECIMENOrdering Facility: [facility] Address: [address] [place] [address] Performed By: #### 5 7021-8 ####[facility] LABORATORYCLIA [id number] [address] Monocytes (Bld) [#/Vol] 0.53 10*3/uL Normal <0.87 [facility] Comment on above: Order Comment: Speci men Type: BLOOD SPECIMENOrdering Facility: [facility] Address: [address] [place] [address] Performed By: #### 5 7021-8 ####[facility] LABORATORYCLIA [id number] [address] Monocytes/100 WBC (Bld) 4.8 % Normal [facility] Comment on above: Order Comment: Speci men Type: BLOOD SPECIMENOrdering Facility: [facility] Address: [address] [place] [address] Performed By: #### 5 7021-8 ####[facility] LABORATORYCLIA [id number] [place] [address] [place] Neutrophils (Bld) [#/Vol] 8.39 10*3/uL High 1.45-7.50 [facility] Comment on above: Order Comment: Speci men Type: BLOOD SPECIMENOrdering Facility: [facility] Address: [address] [place] [address] Performed By: #### 5 7021-8 ####[facility] LABORATORYCLIA [id number] [address] [place] Neutrophils/100 WBC (Bld) 76.3 % Normal [facility] Comment on above: Order Comment: Speci men Type: BLOOD SPECIMENOrdering Facility: [facility] Address: [address] [place] [address] Performed By: #### 5 7021-8 ####[facility] LABORATORYCLIA [id number] [address] [place] Nucleated RBC (Bld) [#/Vol] 10*3/uL Normal <0.01 [facility] Comment on above: Order Comment: Speci men Type: BLOOD SPECIMENOrdering Facility: [facility] Address: [address] [place] [address] Performed By: #### 5 7021-8 ####[facility]ORATORYCLIA [id number] [address] [place] Nucleated RBC/100 WBC (Bld) [Ratio] 0.0 /100 WBC Normal [facility] Comment on above: Order Comment: Speci men Type: BLOOD SPECIMENOrdering Facility: [facility] Address: [address] [place] [address] Performed By: #### 5 7021-8 ####[facility] LABORATORYCLIA [id number] [address] [place] Platelet mean volume (Bld) [Entitic vol] 10.9 fL Normal 9.0-12.7 [facility] Comment on above: Order Comment: Speci men Type: BLOOD SPECIMENOrdering Facility: [facility] Address: [address] [place] [address] Performed By: #### 5 7021-8 ####[facility] LABORATORYCLIA [id number] [address] Platelets (Bld) [#/Vol] 287 10*3/uL Normal 150-400 [facility] Comment on above: Order Comment: Speci men Type: BLOOD SPECIMENOrdering Facility: [facility] Address: [address] [place] [address] Performed By: #### 5 7021-8 ####[facility] LABORATORYCLIA [id number] [address] OF [facility] RBC (Bld) [#/Vol] 3.36 10*6/uL Low 4.20-6.00 [facility] Comment on above: Order Comment: Speci men Type: BLOOD SPECIMENOrdering Facility: [facility] Address: [address] [place] [address] Performed By: #### 5 7021-8 ####[facility] LABORATORYCLIA [id number] [address] WBC (Bld) [#/Vol] 11.00 10*3/uL Normal 3.70-11.00 [facility] Comment on above: Order Comment: Speci men Type: BLOOD SPECIMENOrdering Facility: [facility] Address: [address] [place] [address] Performed By: #### 5 7021-8 ####[facility] LABORATORYCLIA [id number] [address] CSF MANUAL DIFFon 07-30-2021 DIF TTL, CSF 100 cells counted Normal [facility] Comment on above: Order Comment: Speci men Type: CEREBROSPINAL FLUIDOrdering Facility: [facility] Address: [address] [place] [address] Performed By: #### L [id number], [id number], 32647-2 ####[facility] LABORATORYCLIA [id number] [address] EOSIN%, CSF 0 % Normal [facility] Comment on above: Order Comment: Speci men Type: CEREBROSPINAL FLUIDOrdering Facility: [facility] Address: [address] [address] Performed By: #### L [id number], GZG7354, 33142-3 ####[facility]ORATORYCLIA [id number] [place] [address] [place] LYMPH%, CSF 75 % Normal 50-90 [facility] Comment on above: Order Comment: Speci men Type: CEREBROSPINAL FLUIDOrdering Facility: [facility] Address: [address] [place] [address] Performed By: #### L IV3439, DPT9685, 14718-7 ####[facility]ORATORYCLIA [id number] [place] [address] [place] MACRO%, CSF 9 % High <1 [facility] Comment on above: Order Comment: Speci men Type: CEREBROSPINAL FLUIDOrdering Facility: [facility] Address: [address] [place] [address] Performed By: #### L [id number], HBT1982, 19159-4 ####[facility]ORATORYCLIA [id number] [place] [address] [place] MONO%, CSF 10 % Normal 10-50 [facility] Comment on above: Order Comment: Speci men Type: CEREBROSPINAL FLUIDOrdering Facility: [facility] Address: [address] [place] [address] Performed By: #### L [id number], EUX0566, 39921-5 ####[facility]ATORYCLIA [id number] [address] [place] OTHER CL%, CSF 4 % Normal [facility] Comment on above: Order Comment: Speci men Type: CEREBROSPINAL FLUIDOrdering Facility: [facility] Address: [address] [place] [address] Result Comment: Path review to follow. Performed By: #### L OH5716, CLE3556, 56117-5 ####[facility]ORATORYCLIA [id number] [address] [place] REAC LYMPH %, CSF 2 % Normal [facility] Comment on above: Order Comment: Speci men Type: CEREBROSPINAL FLUIDOrdering Facility: [facility] Address: [address] [place] [address] Performed By: #### L [id number], [id number], 26038-7 ####[facility]ATORYCLIA [id number] [address] [place] CSF PATHOLOGIST INTERP (LAB REFLEX ORDER-NO BILL)on 07-30-2021 CSF STAFF REVIEW Negative Normal [facility] Comment on above: Order Comment: Speci men Type: CEREBROSPINAL FLUIDOrdering Facility: [facility] Address: [address] [place] [address] Performed By: #### L [id number], GZC7456, 56981-3 ####[facility]ORYCLIA [id number] [address] Pathologist name Reviewed by Eloise rebolledo MD Normal [facility] Comment on above: Order Comment: Speci men Type: CEREBROSPINAL FLUIDOrdering Facility: [facility] Address: [address] [place] [address] Performed By: #### L [id number], TRM7658, 22634-6 ####[facility]ATORYCLIA [id number] [address] OF [place] CT BRAIN WO IVCONon 07-31-[address] BRAIN WO IVCON Normal [facility] Cell count panel (CSF)on Clarity (CSF) Clear Normal Clear [facility] Comment on above: Order Comment: Speci men Type: CEREBROSPINAL FLUIDOrdering Facility: [facility] Address: [address] [place] [address] Performed By: #### L [id number], MIL6554, 71755-8 ####[facility]ATORYCLIA [id number] [address] [place] Clarity (Unsp spec) Clear Normal Clear [facility] Comment on above: Order Comment: Speci men Type: CEREBROSPINAL FLUIDOrdering Facility: [facility] Address: [address] [address] Performed By: #### L SO6874, AVO1066, 59754-1 ####[facility] LABORATORYCLIA [id number] [address] Color (CSF) Colorless Normal Colorless [facility] Comment on above: Order Comment: Speci men Type: CEREBROSPINAL FLUIDOrdering Facility: [facility] Address: [address] [place] [address] Performed By: #### L NU3216, VWR4866, 91666-2 ####[facility] LABORATORYCLIA [id number] [address] Color (Spun CSF) Colorless Normal Colorless [facility] Comment on above: Order Comment: Speci men Type: CEREBROSPINAL FLUIDOrdering Facility: [facility] Address: [address] [place] [address] Performed By: #### L FY8757, TIQ8186, 07742-6 ####[facility] LABORATORYCLIA [id number] [address] CSF TUBE NUMBER [employer] Normal [facility] Comment on above: Order Comment: Speci men Type: CEREBROSPINAL FLUIDOrdering Facility: [facility] Address: [address] [place] [address] Performed By: #### L [id number], AYZ1973, 03907-1 ####[facility] LABORATORYCLIA [id number] [address] RBC Manual cnt (CSF) [#/Vol] 9 cells/uL High 0-5 [facility] Comment on above: Order Comment: Speci men Type: CEREBROSPINAL FLUIDOrdering Facility: [facility] Address: [address] [place] [address] Performed By: #### L SO5907, WAR9206, 09162-9 ####[facility] LABORATORYCLIA [id number] [address] WBC Manual cnt (CSF) [#/Vol] 8 cells/uL High 0-5 [facility] Comment on above: Order Comment: Speci men Type: CEREBROSPINAL FLUIDOrdering Facility: [facility] Address: [address] [place] [address] Performed By: #### L [id number], WCO6562, 38891-5 ####[facility]ORATORYCLIA [id number] [address] Glucose CSF-ncon Glucose (CSF) [Mass/Vol] 65 mg/dL Normal 40-70 [facility] Comment on above: Order Comment: Speci men Type: CEREBROSPINAL FLUIDOrdering Facility: [facility] Address: [address] [place] [address] Result Comment: Lumb ar CSF glucose values of healthy patients are approximately 60% of the plasma values and must always be compared with a concurrently measured plasma value for adequate clinical interpretation.References: 1. Glucose HK (GLUC3) [package insert V 12.0 [place]]. [employer], [place], [place]. September 2015. 2. Michelle Moore, Loki, H. (2015). Chapter 7: Glucose and Lactate. Marianela Alcocer al.(eds.), Cerebrospinal Fluid in Clinical Neurology. [place]: [employer]. Performed By: #### 2 342-4, 2880-3 ####[facility] LABORATORYCLIA [id number] [address] OF [facility] Magnesium SerPl[facility] 07-30 Magnesium [Mass/Vol] 2.5 mg/dL High 1.7-2.3 [facility] Comment on above: Order Comment: Speci men Type: BLOOD SPECIMENOrdering Facility: [facility] Address: [address] [place] [address] Performed By: #### 2 777-1, 54437-6, 84202-6 ####[facility] LABORATORYCLIA [id number] [address] [place] NURSING PROGon 07-30-2021 NURSING PROG Normal [facility] Phosphate SerPl-mCncon 07-30 Phosphate [Mass/Vol] 2.4 mg/dL Low 2.7-4.8 [facility] Comment on above: Order Comment: Speci men Type: BLOOD SPECIMENOrdering Facility: [facility] Address: [address] [place] [address] Performed By: #### 2 777-1, 65628-2, 59364-7 ####[facility] LABORATORYCLIA [id number] [place] [address] [place] Prot CSF-mCncon 07-30-2021 Protein (CSF) [Mass/Vol] 50 mg/dL High 15-45 [facility] Comment on above: Order Comment: Speci men Type: CEREBROSPINAL FLUIDOrdering Facility: [facility] Address: [address] [place] [address] Performed By: #### 2 342-4, 2880-3 ####[facility]ITALCLIA [id number] [place] [address] [place] aPTT PPPon 07-30-2021 aPTT Coag (PPP) [Time] 64.1 s High 23.0-32.4 [facility] Comment on above: Order Comment: Speci men Type: BLOOD SPECIMENOrdering Facility: [facility] Address: [address] [place] [address] Performed By: #### 1 4979-9 ####[facility] LABORATORYCLIA [id number] [address] [place] Bacteria CSF Culton 07-30-19 22 Bacteria identified Cx Nom (CSF) CULTURE, CSF: No growth 14 days GRAM STAIN: No cells or organisms seen Gram stain performed on cytospun specimen. Gram stain confirmed by microbiology Normal [facility] Comment on above: Performed By: #### 6 06-4 ####[facility] LABORATORYCLIA [id number] [place] [address] [place] CASE MANAGEMon 07-29-2021 CASE MANAGEM Normal [facility] CBC W Auto Differential pane l (Bld)on 07-29-2021 Basophils (Bld) [#/Vol] 0.03 10*3/uL Normal <0.11 [facility] Comment on above: Order Comment: Speci men Type: BLOOD SPECIMENOrdering Facility: [facility] Address: [address] [address] Performed By: #### 5 7021-8 ####[facility]ORATORYCLIA [id number] [place] [address] [place] Basophils/100 WBC (Bld) 0.3 % Normal [facility] Comment on above: Order Comment: Speci men Type: BLOOD SPECIMENOrdering Facility: [facility] Address: [address] [place] [address] Performed By: #### 5 7021-8 ####[facility] LABORATORYCLIA [id number] [address] STATES OF [facility] Differential cell count method Nom (Bld) Auto Normal [facility] Comment on above: Order Comment: Speci men Type: BLOOD SPECIMENOrdering Facility: [facility] Address: [address] [place] [address] Performed By: #### 5 7021-8 ####[facility] LABORATORYCLIA [id number] [place] [address] [place] Eosinophils (Bld) [#/Vol] 0.40 10*3/uL Normal <0.46 [facility] Comment on above: Order Comment: Speci men Type: BLOOD SPECIMENOrdering Facility: [facility] Address: [address] [address] Performed By: #### 5 7021-8 ####[facility]ATORYCLIA [id number] [address] [place] Eosinophils/100 WBC (Bld) 3.9 % Normal [facility] Comment on above: Order Comment: Speci men Type: BLOOD SPECIMENOrdering Facility: [facility] Address: [address] [place] [address] Performed By: #### 5 7021-8 ####[facility] LABORATORYCLIA [id number] [address] Erythrocyte distribution width (RBC) [Ratio] 17.1 % High 11.5-15.0 [facility] Comment on above: Order Comment: Speci men Type: BLOOD SPECIMENOrdering Facility: [facility] Address: [address] [place] [address] Performed By: #### 5 7021-8 ####[facility] LABORATORYCLIA [id number] [address] OF [facility] Hematocrit (Bld) [Volume fraction] 32.0 % Low 39.0-51.0 [facility] Comment on above: Order Comment: Speci men Type: BLOOD SPECIMENOrdering Facility: [facility] Address: [address] [place] [address] Performed By: #### 5 7021-8 ####[facility] LABORATORYCLIA [id number] [address] Hemoglobin (Bld) [Mass/Vol] 9.7 g/dL Low 13.0-17.0 [facility] Comment on above: Order Comment: Speci men Type: BLOOD SPECIMENOrdering Facility: [facility] Address: [address] [place] [address] Performed By: #### 5 7021-8 ####[facility] LABORATORYCLIA [id number] [address] IMMATURE GRAN % 0.6 % Normal [facility] Comment on above: Order Comment: Speci men Type: BLOOD SPECIMENOrdering Facility: [facility] Address: [address] [place] [address] Performed By: #### 5 7021-8 ####[facility] LABORATORYCLIA [id number] [address] IMMATURE GRAN ABS 0.06 k/uL Normal <0.10 [facility] Comment on above: Order Comment: Speci men Type: BLOOD SPECIMENOrdering Facility: [facility] Address: [address] [address] Performed By: #### 5 7021-8 ####[facility] LABORATORYCLIA [id number] [address] [place] Lymphocytes (Bld) [#/Vol] 1.96 10*3/uL Normal 1.00-4.00 [facility] Comment on above: Order Comment: Speci men Type: BLOOD SPECIMENOrdering Facility: [facility] Address: [address] [place] [address] Performed By: #### 5 7021-8 ####[facility] LABORATORYCLIA [id number] [address] Lymphocytes/100 WBC (Bld) 19.0 % Normal [facility] Comment on above: Order Comment: Speci men Type: BLOOD SPECIMENOrdering Facility: [facility] Address: [address] [place] [address] Performed By: #### 5 7021-8 ####[facility] LABORATORYCLIA [id number] [address] STATES OF [facility] MCH (RBC) [Entitic mass] 28.0 pg Normal 26.0-34.0 [facility] Comment on above: Order Comment: Speci men Type: BLOOD SPECIMENOrdering Facility: [facility] Address: [address] [place] [address] Performed By: #### 5 7021-8 ####[facility] LABORATORYCLIA [id number] [address] [place] MCHC (RBC) [Mass/Vol] 30.3 g/dL Low 30.5-36.0 [facility] Comment on above: Order Comment: Speci men Type: BLOOD SPECIMENOrdering Facility: [facility] Address: [address] [place] [address] Performed By: #### 5 7021-8 ####[facility] LABORATORYCLIA [id number] [address] [place] MCV (RBC) [Entitic vol] 92.5 fL Normal 80.0-100.0 [facility] Comment on above: Order Comment: Speci men Type: BLOOD SPECIMENOrdering Facility: [facility] Address: [address] [place] [address] Performed By: #### 5 7021-8 ####[facility] LABORATORYCLIA [id number] [place] [address] [place] Monocytes (Bld) [#/Vol] 0.53 10*3/uL Normal <0.87 [facility] Comment on above: Order Comment: Speci men Type: BLOOD SPECIMENOrdering Facility: [facility] Address: [address] [place] [address] Performed By: #### 5 7021-8 ####[facility] LABORATORYCLIA [id number] [place] [address] [place] Monocytes/100 WBC (Bld) 5.2 % Normal [facility] Comment on above: Order Comment: Speci men Type: BLOOD SPECIMENOrdering Facility: [facility] Address: [address] [place] [address] Performed By: #### 5 7021-8 ####[facility]ORATORYCLIA [id number] [place] [address] [place] Neutrophils (Bld) [#/Vol] 7.31 10*3/uL Normal 1.45-7.50 [facility] Comment on above: Order Comment: Speci men Type: BLOOD SPECIMENOrdering Facility: [facility] Address: [address] [place] [address] Performed By: #### 5 7021-8 ####[facility] LABORATORYCLIA [id number] [place] [address] [place] Neutrophils/100 WBC (Bld) 71.0 % Normal [facility] Comment on above: Order Comment: Speci men Type: BLOOD SPECIMENOrdering Facility: [facility] Address: [address] [place] [address] Performed By: #### 5 7021-8 ####[facility]ORATORYCLIA [id number] [address] [place] Nucleated RBC (Bld) [#/Vol] 10*3/uL Normal <0.01 [facility] Comment on above: Order Comment: Speci men Type: BLOOD SPECIMENOrdering Facility: [facility] Address: [address] [place] [address] Performed By: #### 5 7021-8 ####[facility] LABORATORYCLIA [id number] [address] [place] Nucleated RBC/100 WBC (Bld) [Ratio] 0.0 /100 WBC Normal [facility] Comment on above: Order Comment: Speci men Type: BLOOD SPECIMENOrdering Facility: [facility] Address: [address] [place] [address] Performed By: #### 5 7021-8 ####[facility] LABORATORYCLIA [id number] [address] [place] Platelet mean volume (Bld) [Entitic vol] 11.2 fL Normal 9.0-12.7 [facility] Comment on above: Order Comment: Speci men Type: BLOOD SPECIMENOrdering Facility: [facility] Address: [address] [place] [address] Performed By: #### 5 7021-8 ####[facility] LABORATORYCLIA [id number] [address] [place] Platelets (Bld) [#/Vol] 276 10*3/uL Normal 150-400 [facility] Comment on above: Order Comment: Speci men Type: BLOOD SPECIMENOrdering Facility: [facility] Address: [address] [place] [address] Performed By: #### 5 7021-8 ####[facility] LABORATORYCLIA [id number] [address] [place] RBC (Bld) [#/Vol] 3.46 10*6/uL Low 4.20-6.00 [facility] Comment on above: Order Comment: Speci men Type: BLOOD SPECIMENOrdering Facility: [facility] Address: [facility] [place] [address] Performed By: #### 5 7021-8 ####[facility] LABORATORYCLIA [id number] [place] [address] [place] [facility] WBC (Bld) [#/Vol] 10.29 10*3/uL Normal 3.70-11.00 [facility] Comment on above: Order Comment: Speci men Type: BLOOD SPECIMENOrdering Facility: [facility] Address: [address] [place] [address] Performed By: #### 5 7021-8 ####[facility] LABORATORYCLIA [id number] [address] OF [facility] NURSING PROGon 07-29-2021 NURSING PROG Normal [facility] THERAPY NTon 07-29-2021 THERAPY NT Normal [facility] aPTT PPPon 07-29-2021 aPTT Coag (PPP) [Time] 59.2 s High 23.0-32.4 [facility] Comment on above: Order Comment: Speci men Type: BLOOD SPECIMENOrdering Facility: [facility] Address: [address] [place] [address] Performed By: #### 1 4979-9 ####[facility] LABORATORYCLIA [id number] [address] [place] ALLIED HEALTHon 07-28-2021 ALLIED HEALTH Normal [facility] Basic metabolic 2000 panelon 07-28-2021 Anion gap [Moles/Vol] 7 mmol/L Low 9-18 [facility] Comment on above: Order Comment: Speci men Type: BLOOD SPECIMENOrdering Facility: [facility] Address: [address] [place] [address] Performed By: #### 1 4338-8, 50727-0, 2777-1, 90710-4 ####[facility] LABORATORYCLIA [id number] [address] [place] Calcium [Mass/Vol] 9.0 mg/dL Normal 8.5-10.2 [facility] Comment on above: Order Comment: Speci men Type: BLOOD SPECIMENOrdering Facility: [facility] Address: [address] [place] [address] Performed By: #### 1 4338-8, 45111-7, 277-, 86155-2 ####[facility] LABORATORYCLIA [id number] [place] [address] [place] Chloride [Moles/Vol] 94 mmol/L Low 97-105 [facility] Comment on above: Order Comment: Speci men Type: BLOOD SPECIMENOrdering Facility: [facility] Address: [address] [place] [address] Performed By: #### 1 4338-8, 69645-6, 27711-04, 34701-7 ####[facility]ITALCLIA [id number] [place] [address] [place] CO2 [Moles/Vol] 31 mmol/L High 22-30 [facility] Comment on above: Order Comment: Speci men Type: BLOOD SPECIMENOrdering Facility: [facility] Address: [address] [place] [address] Performed By: #### 1 4338-8, , 2776-05, 17271-6 ####[facility] LABORATORYCLIA [id number] [address] [place] Creatinine [Mass/Vol] 0.75 mg/dL Normal 0.73-1.22 [facility] Comment on above: Order Comment: Speci men Type: BLOOD SPECIMENOrdering Facility: [facility] Address: [address] [place] [address] Performed By: #### 1 4338-8, 34235-2, 2776-05, 24291-4 ####[facility] LABORATORYCLIA [id number] [address] STATES OF [facility] ESTIMATED GLOMERULAR FILTRATION RATE 98 mL/min/1.73m??? Normal >=60 [facility] Comment on above: Order Comment: Speci men Type: BLOOD SPECIMENOrdering Facility: [facility] Address: [address] [place] [address] Result Comment: Luzmaria mated Glomerular Filtration Rate [...] actual GFR. Performed By: #### 1 4338-8, 89974-8, 2777-1, 29771-0 ####[facility]PITALCLIA [id number] [address] [id number] [place] Glucose [Mass/Vol] 122 mg/dL High 74-99 [facility] Comment on above: Order Comment: Shira feldman Type: BLOOD SPECIMENOrdering Facility: [facility] Address: [address] [place], [place] [id number] Result Comment: The [place] [employer] (ADA) provides guidance for cutoff [...] Standards of Medical Care in Diabetes 2016, [place] [employer]. Diabetes Care. 2016.39(Suppl 1). Performed By: #### 1 4338-8, 37435-0, 2777-1, 85959-2 ####[facility] LABORATORYCLIA [id number] [address] [id number] [place] Potassium [Moles/Vol] 4.0 mmol/L Normal 3.7-5.1 [facility] Comment on above: Order Comment: Shira feldman Type: BLOOD SPECIMENOrdering Facility: [facility] Address: [address] [place] [address] Performed By: #### 1 4338-8, 56454-7, 2777-1, 79409-0 ####[facility] LABORATORYCLIA [id number] [address] STATES [facility] Sodium [Moles/Vol] 132 mmol/L Low 136-144 [facility] Comment on above: Order Comment: Speci men Type: BLOOD SPECIMENOrdering Facility: [facility] Address: [address] [place] [address] Performed By: #### 1 4338-8, 58846-9, 2777-1, 03125-8 ####[facility] LABORATORYCLIA [id number] [address] [place] Urea nitrogen [Mass/Vol] 34 mg/dL High 01-28 [facility] Comment on above: Order Comment: Speci men Type: BLOOD SPECIMENOrdering Facility: [facility] Address: [address] [place] [address] Performed By: #### 1 4338-8, 80175-8, 2777-1, 81314-5 ####[facility] LABORATORYCLIA [id number] [address] CBC W Auto Differential pane l (Bld)on 07-28-2021 Basophils (Bld) [#/Vol] 0.04 10*3/uL Normal <0.11 [facility] Comment on above: Order Comment: Speci men Type: BLOOD SPECIMENOrdering Facility: [facility] Address: [address] [place] [address] Performed By: #### 5 7021-8 ####[facility] LABORATORYCLIA [id number] [address] STATES [facility] Basophils/100 WBC (Bld) 0.5 % Normal [facility] Comment on above: Order Comment: Speci men Type: BLOOD SPECIMENOrdering Facility: [facility] Address: [address] [place] [address] Performed By: #### 5 7021-8 ####[facility] LABORATORYCLIA [id number] [address] Differential cell count method Nom (Bld) Auto Normal [facility] Comment on above: Order Comment: Speci men Type: BLOOD SPECIMENOrdering Facility: [facility] Address: [address] [place] [address] Performed By: #### 5 7021-8 ####[facility] LABORATORYCLIA [id number] [address] [place] Eosinophils (Bld) [#/Vol] 0.30 10*3/uL Normal <0.46 [facility] Comment on above: Order Comment: Speci men Type: BLOOD SPECIMENOrdering Facility: [facility] Address: [address] [place] [address] Performed By: #### 5 7021-8 ####[facility] LABORATORYCLIA [id number] [address] Eosinophils/100 WBC (Bld) 3.4 % Normal [facility] Comment on above: Order Comment: Speci men Type: BLOOD SPECIMENOrdering Facility: [facility] Address: [address] [place] [address] Performed By: #### 5 7021-8 ####[facility] LABORATORYCLIA [id number] [address] Erythrocyte distribution width (RBC) [Ratio] 16.9 % High 11.5-15.0 [facility] Comment on above: Order Comment: Speci men Type: BLOOD SPECIMENOrdering Facility: [facility] Address: [address] [place] [address] Performed By: #### 5 7021-8 ####[facility] LABORATORYCLIA [id number] [address] Hematocrit (Bld) [Volume fraction] 30.3 % Low 39.0-51.0 [facility] Comment on above: Order Comment: Speci men Type: BLOOD SPECIMENOrdering Facility: [facility] Address: [address] [place] [address] Performed By: #### 5 7021-8 ####[facility] LABORATORYCLIA [id number] [address] STATES OF [facility] Hemoglobin (Bld) [Mass/Vol] 9.2 g/dL Low 13.0-17.0 [facility] Comment on above: Order Comment: Speci men Type: BLOOD SPECIMENOrdering Facility: [facility] Address: [address] [place] [address] Performed By: #### 5 7021-8 ####[facility] LABORATORYCLIA [id number] [address] IMMATURE GRAN % 0.6 % Normal [facility] Comment on above: Order Comment: Speci men Type: BLOOD SPECIMENOrdering Facility: [facility] Address: [address] [place] [address] Performed By: #### 5 7021-8 ####[facility] LABORATORYCLIA [id number] [address] IMMATURE GRAN ABS 0.05 k/uL Normal <0.10 [facility] Comment on above: Order Comment: Speci men Type: BLOOD SPECIMENOrdering Facility: [facility] Address: [address] [place] [address] Performed By: #### 5 7021-8 ####[facility] LABORATORYCLIA [id number] [address] [place] Lymphocytes (Bld) [#/Vol] 1.68 10*3/uL Normal 1.00-4.00 [facility] Comment on above: Order Comment: Speci men Type: BLOOD SPECIMENOrdering Facility: [facility] Address: [address] [place] [address] Performed By: #### 5 7021-8 ####[facility] LABORATORYCLIA [id number] [address] Lymphocytes/100 WBC (Bld) 19.2 % Normal [facility] Comment on above: Order Comment: Speci men Type: BLOOD SPECIMENOrdering Facility: [facility] Address: [address] [place] [address] Performed By: #### 5 7021-8 ####[facility] LABORATORYCLIA [id number] [address] MCH (RBC) [Entitic mass] 28.4 pg Normal 26.0-34.0 [facility] Comment on above: Order Comment: Speci men Type: BLOOD SPECIMENOrdering Facility: [facility] Address: [address] [place] [address] Performed By: #### 5 7021-8 ####[facility] LABORATORYCLIA [id number] [address] MCHC (RBC) [Mass/Vol] 30.4 g/dL Low 30.5-36.0 [facility] Comment on above: Order Comment: Speci men Type: BLOOD SPECIMENOrdering Facility: [facility] Address: [address] [place] [address] Performed By: #### 5 7021-8 ####[facility] LABORATORYCLIA [id number] [address] MCV (RBC) [Entitic vol] 93.5 fL Normal 80.0-100.0 [facility] Comment on above: Order Comment: Speci men Type: BLOOD SPECIMENOrdering Facility: [facility] Address: [address] [place] [address] Performed By: #### 5 7021-8 ####[facility] LABORATORYCLIA [id number] [address] Monocytes (Bld) [#/Vol] 0.58 10*3/uL Normal <0.87 [facility] Comment on above: Order Comment: Speci men Type: BLOOD SPECIMENOrdering Facility: [facility] Address: [address] [place] [address] Performed By: #### 5 7021-8 ####[facility] LABORATORYCLIA [id number] [address] Monocytes/100 WBC (Bld) 6.6 % Normal [facility] Comment on above: Order Comment: Speci men Type: BLOOD SPECIMENOrdering Facility: [facility] Address: [address] [place] [address] Performed By: #### 5 7021-8 ####[facility] LABORATORYCLIA [id number] [place] [address] [place] Neutrophils (Bld) [#/Vol] 6.11 10*3/uL Normal 1.45-7.50 [facility] Comment on above: Order Comment: Speci men Type: BLOOD SPECIMENOrdering Facility: [facility] Address: [address] [place] [address] Performed By: #### 5 7021-8 ####[facility]ORATORYCLIA [id number] [address] [place] Neutrophils/100 WBC (Bld) 69.7 % Normal [facility] Comment on above: Order Comment: Speci men Type: BLOOD SPECIMENOrdering Facility: [facility] Address: [address] [place] [address] Performed By: #### 5 7021-8 ####[facility] LABORATORYCLIA [id number] [address] [place] Nucleated RBC (Bld) [#/Vol] 10*3/uL Normal <0.01 [facility] Comment on above: Order Comment: Speci men Type: BLOOD SPECIMENOrdering Facility: [facility] Address: [address] [place] [address] Performed By: #### 5 7021-8 ####[facility] LABORATORYCLIA [id number] [address] [place] Nucleated RBC/100 WBC (Bld) [Ratio] 0.0 /100 WBC Normal [facility] Comment on above: Order Comment: Speci men Type: BLOOD SPECIMENOrdering Facility: [facility] Address: [address] [place] [address] Performed By: #### 5 7021-8 ####[facility] LABORATORYCLIA [id number] [address] [place] Platelet mean volume (Bld) [Entitic vol] 11.3 fL Normal 9.0-12.7 [facility] Comment on above: Order Comment: Speci men Type: BLOOD SPECIMENOrdering Facility: [facility] Address: [address] [place] [address] Performed By: #### 5 7021-8 ####[facility] LABORATORYCLIA [id number] [place] [address] [place] Platelets (Bld) [#/Vol] 238 10*3/uL Normal 150-400 [facility] Comment on above: Order Comment: Speci men Type: BLOOD SPECIMENOrdering Facility: [facility] Address: [address] [place] [address] Performed By: #### 5 7021-8 ####[facility] LABORATORYCLIA [id number] [place] [address] [place] RBC (Bld) [#/Vol] 3.24 10*6/uL Low 4.20-6.00 [facility] Comment on above: Order Comment: Speci men Type: BLOOD SPECIMENOrdering Facility: [facility] Address: [address] [place] [address] Performed By: #### 5 7021-8 ####[facility] LABORATORYCLIA [id number] [place] [address] [place] WBC (Bld) [#/Vol] 8.76 10*3/uL Normal 3.70-11.00 [facility] Comment on above: Order Comment: Speci men Type: BLOOD SPECIMENOrdering Facility: [facility] Address: [address] [place] [address] Performed By: #### 5 7021-8 ####[facility] LABORATORYCLIA [id number] [address] [place] MRI BRAIN WO/W IVCONon 07-28 MRI BRAIN WO/W IVCON Normal [facility] Magnesium SerPl-mCncon 07-28 Magnesium [Mass/Vol] 2.5 mg/dL High 1.7-2.3 [facility] Comment on above: Order Comment: Speci men Type: BLOOD SPECIMENOrdering Facility: [facility] Address: [address] [place] [address] Performed By: #### 1 4338-8, 41562-9, 2777-1, 03471-0 ####[facility] LABORATORYCLIA [id number] [address] STATES OF [facility] NURSING PROGon 07-28-2021 NURSING PROG Normal [facility] NURSING PROG Normal [facility] Phosphate SerPl-mCncon 07-28 Phosphate [Mass/Vol] 2.8 mg/dL Normal 2.7-4.8 [facility] Comment on above: Order Comment: Speci men Type: BLOOD SPECIMENOrdering Facility: [facility] Address: [address] [place] [address] Performed By: #### 1 4338-8, 30835-6, 2777-1, 12947-8 ####[facility] LABORATORYCLIA [id number] [address] [place] Prealbumin [Mass/Vol]on 07-06 Prealbumin Nephelometry [Mass/Vol] 25 mg/dL Normal 17-36 [facility] Comment on above: Order Comment: Speci men Type: BLOOD SPECIMENOrdering Facility: [facility] Address: [address] [place] [address] Performed By: #### 1 4338-8, 40992-6, 2777-1, 43292-2 ####[facility] LABORATORYCLIA [id number] [address] [place] aPTT PPPon 07-28-2021 aPTT Coag (PPP) [Time] 53.0 s High 23.0-32.4 [facility] Comment on above: Order Comment: Speci men Type: BLOOD SPECIMENOrdering Facility: [facility] Address: [address] [place] [place] [address] Performed By: #### 1 4979-9 ####[facility] LABORATORYCLIA [id number] [address] [place] aPTT Coag (PPP) [Time] 57.2 s High 23.0-32.4 [facility] Comment on above: Order Comment: Speci men Type: BLOOD SPECIMENOrdering Facility: [facility] Address: [address] [place] [address] Performed By: #### 1 4979-9 ####[facility] LABORATORYCLIA [id number] [address] [place] Bacteria CSF Culton 07-28-19 22 Bacteria identified Cx Nom (CSF) CULTURE, CSF: No growth 14 days GRAM STAIN: No organisms seen Rare Polymorphonuclear leukocytes Rare Red Blood Cells Gram stain performed on cytospun specimen. Normal [facility] Comment on above: Performed By: #### 6 06-4 ####[facility] LABORATORYCLIA [id number] [address] [place] Bacteria Spec Resp Culton Bacteria identified Respiratory culture Nom (Unsp spec) CULTURE, RESPIRATORY: Rare Normal respiratory chris present GRAM STAIN: No organisms seen Rare Polymorphonuclear leukocytes Rare Epithelial cells Normal [facility] Comment on above: Performed By: #### 3 2355-0 ####[facility] LABORATORYCLIA [id number] [address] [place] CASE MANAGEMon 07-27-2021 CASE MANAGEM Normal [facility] CBC W Auto Differential pane l (Bld)on 07-27-2021 Basophils (Bld) [#/Vol] 0.04 10*3/uL Normal <0.11 [facility] Comment on above: Order Comment: Speci men Type: BLOOD SPECIMENOrdering Facility: [facility] Address: [address] [id number] Performed By: #### 5 7021-8 ####[facility] LABORATORYCLIA [id number] [address] [place] Basophils/100 WBC (Bld) 0.4 % Normal [facility] Comment on above: Order Comment: Speci men Type: BLOOD SPECIMENOrdering Facility: [facility] Address: [address] [place] [address] Performed By: #### 5 7021-8 ####[facility] LABORATORYCLIA [id number] [address] Differential cell count method Nom (Bld) Auto Normal [facility] Comment on above: Order Comment: Speci men Type: BLOOD SPECIMENOrdering Facility: [facility] Address: [address] [place] [address] Performed By: #### 5 7021-8 ####[facility] LABORATORYCLIA [id number] [address] [place] Eosinophils (Bld) [#/Vol] 0.50 10*3/uL High <0.46 [facility] Comment on above: Order Comment: Speci men Type: BLOOD SPECIMENOrdering Facility: [facility] Address: [address] [place] [address] Performed By: #### 5 7021-8 ####[facility] LABORATORYCLIA [id number] [address] Eosinophils/100 WBC (Bld) 5.2 % Normal [facility] Comment on above: Order Comment: Speci men Type: BLOOD SPECIMENOrdering Facility: [facility] Address: [address] [place] [address] Performed By: #### 5 7021-8 ####[facility] LABORATORYCLIA [id number] [address] [place] Erythrocyte distribution width (RBC) [Ratio] 16.8 % High 11.5-15.0 [facility] Comment on above: Order Comment: Speci men Type: BLOOD SPECIMENOrdering Facility: [facility] Address: [address] [place] [address] Performed By: #### 5 7021-8 ####[facility]ORATORYCLIA [id number] [address] OF [facility] Hematocrit (Bld) [Volume fraction] 29.8 % Low 39.0-51.0 [facility] Comment on above: Order Comment: Speci men Type: BLOOD SPECIMENOrdering Facility: [facility] Address: [address] [place] [address] Performed By: #### 5 7021-8 ####[facility] LABORATORYCLIA [id number] [address] Hemoglobin (Bld) [Mass/Vol] 9.0 g/dL Low 13.0-17.0 [facility] Comment on above: Order Comment: Speci men Type: BLOOD SPECIMENOrdering Facility: [facility] Address: [address] [place] [address] Performed By: #### 5 7021-8 ####[facility] LABORATORYCLIA [id number] [address] IMMATURE GRAN % 0.6 % Normal [facility] Comment on above: Order Comment: Speci men Type: BLOOD SPECIMENOrdering Facility: [facility] Address: [address] [place] [address] Performed By: #### 5 7021-8 ####[facility] LABORATORYCLIA [id number] [address] IMMATURE GRAN ABS 0.06 k/uL Normal <0.10 [facility] Comment on above: Order Comment: Speci men Type: BLOOD SPECIMENOrdering Facility: [facility] Address: [address] [place] [address] Performed By: #### 5 7021-8 ####[facility] LABORATORYCLIA [id number] [address] Lymphocytes (Bld) [#/Vol] 1.73 10*3/uL Normal 1.00-4.00 [facility] Comment on above: Order Comment: Speci men Type: BLOOD SPECIMENOrdering Facility: [facility] Address: [address] [place] [address] Performed By: #### 5 7021-8 ####[facility] LABORATORYCLIA [id number] [address] Lymphocytes/100 WBC (Bld) 17.9 % Normal [facility] Comment on above: Order Comment: Speci men Type: BLOOD SPECIMENOrdering Facility: [facility] Address: [address] [place] [address] Performed By: #### 5 7021-8 ####[facility] LABORATORYCLIA [id number] [address] MCH (RBC) [Entitic mass] 28.1 pg Normal 26.0-34.0 [facility] Comment on above: Order Comment: Speci men Type: BLOOD SPECIMENOrdering Facility: [facility] Address: [address] [place] [address] Performed By: #### 5 7021-8 ####[facility] LABORATORYCLIA [id number] [address] MCHC (RBC) [Mass/Vol] 30.2 g/dL Low 30.5-36.0 [facility] Comment on above: Order Comment: Speci men Type: BLOOD SPECIMENOrdering Facility: [facility] Address: [address] [place] [address] Performed By: #### 5 7021-8 ####[facility] LABORATORYCLIA [id number] [address] MCV (RBC) [Entitic vol] 93.1 fL Normal 80.0-100.0 [facility] Comment on above: Order Comment: Speci men Type: BLOOD SPECIMENOrdering Facility: [facility] Address: [address] [place] [address] Performed By: #### 5 7021-8 ####[facility] LABORATORYCLIA [id number] [address] Monocytes (Bld) [#/Vol] 0.59 10*3/uL Normal <0.87 [facility] Comment on above: Order Comment: Speci men Type: BLOOD SPECIMENOrdering Facility: [facility] Address: [address] [place] [address] Performed By: #### 5 7021-8 ####[facility] LABORATORYCLIA [id number] [address] STATES [facility] Monocytes/100 WBC (Bld) 6.1 % Normal [facility] Comment on above: Order Comment: Speci men Type: BLOOD SPECIMENOrdering Facility: [facility] Address: [address] [place] [address] Performed By: #### 5 7021-8 ####[facility] LABORATORYCLIA [id number] [address] [place] Neutrophils (Bld) [#/Vol] 6.75 10*3/uL Normal 1.45-7.50 [facility] Comment on above: Order Comment: Speci men Type: BLOOD SPECIMENOrdering Facility: [facility] Address: [address] [place] [address] Performed By: #### 5 7021-8 ####[facility] LABORATORYCLIA [id number] [address] Neutrophils/100 WBC (Bld) 69.8 % Normal [facility] Comment on above: Order Comment: Speci men Type: BLOOD SPECIMENOrdering Facility: [facility] Address: [address] [place] [address] Performed By: #### 5 7021-8 ####[facility] LABORATORYCLIA [id number] [address] [place] Nucleated RBC (Bld) [#/Vol] 10*3/uL Normal <0.01 [facility] Comment on above: Order Comment: Speci men Type: BLOOD SPECIMENOrdering Facility: [facility] Address: [address] [place] [address] Performed By: #### 5 7021-8 ####[facility] LABORATORYCLIA [id number] [address] [place] Nucleated RBC/100 WBC (Bld) [Ratio] 0.0 /100 WBC Normal [facility] Comment on above: Order Comment: Speci men Type: BLOOD SPECIMENOrdering Facility: [facility] Address: [address] [place] [address] Performed By: #### 5 7021-8 ####[facility] LABORATORYCLIA [id number] [address] [place] Platelet mean volume (Bld) [Entitic vol] 11.3 fL Normal 9.0-12.7 [facility] Comment on above: Order Comment: Speci men Type: BLOOD SPECIMENOrdering Facility: [facility] Address: [address] [place] [address] Performed By: #### 5 7021-8 ####[facility] LABORATORYCLIA [id number] [address] [place] Platelets (Bld) [#/Vol] 227 10*3/uL Normal 150-400 [facility] Comment on above: Order Comment: Speci men Type: BLOOD SPECIMENOrdering Facility: [facility] Address: [address] [place] [address] Performed By: #### 5 7021-8 ####[facility] LABORATORYCLIA [id number] [address] [place] RBC (Bld) [#/Vol] 3.20 10*6/uL Low 4.20-6.00 [facility] Comment on above: Order Comment: Speci men Type: BLOOD SPECIMENOrdering Facility: [facility] Address: [address] [place] [address] Performed By: #### 5 7021-8 ####[facility] LABORATORYCLIA [id number] [address] [place] WBC (Bld) [#/Vol] 9.67 10*3/uL Normal 3.70-11.00 [facility] Comment on above: Order Comment: Speci men Type: BLOOD SPECIMENOrdering Facility: [facility] Address: [address] [place] [address] Performed By: #### 5 7021-8 ####[facility] LABORATORYCLIA [id number] [address] OF [facility] CONSULT PROGon 07-27-2021 CONSULT PROG Normal [facility] CSF MANUAL DIFFon 07-27-2021 DIF TTL, CSF 100 cells counted Normal [facility] Comment on above: Order Comment: Speci men Type: CEREBROSPINAL FLUIDOrdering Facility: [facility] Address: [address] [place] [address] Performed By: #### L [id number], 60184-2, [id number] ####[facility] LABORATORYCLIA [id number] [address] [place] LYMPH%, CSF 75 % Normal 50-90 [facility] Comment on above: Order Comment: Speci men Type: CEREBROSPINAL FLUIDOrdering Facility: [facility] Address: [address] [place] [address] Performed By: #### L [id number], 81098-7, [id number] ####[facility] LABORATORYCLIA [id number] [place] [address] [place] MONO%, CSF 22 % Normal 10-50 [facility] Comment on above: Order Comment: Speci men Type: CEREBROSPINAL FLUIDOrdering Facility: [facility] Address: [address] [place] [address] Performed By: #### L [id number], 83556-7, [id number] ####[facility]ORATORYCLIA [id number] [place] [address] [place] NEUT%, CSF 2 % Normal 0-3 [facility] Comment on above: Order Comment: Speci men Type: CEREBROSPINAL FLUIDOrdering Facility: [facility] Address: [address] [place] [address] Performed By: #### L BY9074, 63480-4, [id number] ####[facility]ORATORYCLIA [id number] [address] OTHER CL%, CSF 1 % Normal [facility] Comment on above: Order Comment: Speci men Type: CEREBROSPINAL FLUIDOrdering Facility: [facility] Address: [address] [place] [address] Result Comment: Path ologist review of microscopy results to follow Performed By: #### L [id number], 09519-8, [id number] ####[facility]ORATORYCLIA [id number] [address] [place] CSF PATHOLOGIST INTERP (LAB REFLEX ORDER-NO BILL)on 07-27-2021 CSF STAFF REVIEW Negative Normal [facility] Comment on above: Order Comment: Speci men Type: CEREBROSPINAL FLUIDOrdering Facility: [facility] Address: [address] [place] [address] Performed By: #### L [id number], 54286-7, [id number] ####[facility] LABORATORYCLIA [id number] [address] Pathologist name Reviewed by Amador Stevens MD [facility] Comment on above: Order Comment: Speci men Type: CEREBROSPINAL FLUIDOrdering Facility: [facility] Address: [address] [place] [address] Performed By: #### L [id number], 97638-3, [id number] ####[facility] LABORATORYCLIA [id number] [address] Cell count panel (CSF)on Clarity (CSF) Clear Normal Clear [facility] Comment on above: Order Comment: Speci men Type: CEREBROSPINAL FLUIDOrdering Facility: [facility] Address: [address] [place] [address] Performed By: #### L [id number], 95106-8, [id number] ####[facility]ORATORYCLIA [id number] [address] Clarity (Unsp spec) Not Indicated Normal Clear [facility] Comment on above: Order Comment: Speci men Type: CEREBROSPINAL FLUIDOrdering Facility: [facility] Address: [address] [address] Performed By: #### L CH7619, 15967-3, [id number] ####[facility]ORATORYCLIA [id number] [address] Color (CSF) Colorless Normal Colorless [facility] Comment on above: Order Comment: Speci men Type: CEREBROSPINAL FLUIDOrdering Facility: [facility] Address: [address] [place] [address] Performed By: #### L [id number], 96990-8, [id number] ####[facility] LABORATORYCLIA [id number] [address] Color (Spun CSF) Not Indicated Normal Colorless [facility] Comment on above: Order Comment: Speci men Type: CEREBROSPINAL FLUIDOrdering Facility: [facility] Address: [address] [place] [address] Performed By: #### L FH0395, 24592-2, [id number] ####[facility] LABORATORYCLIA [id number] [address] CSF TUBE [employer]BER [employer] Normal [facility] Comment on above: Order Comment: Speci men Type: CEREBROSPINAL FLUIDOrdering Facility: [facility] Address: [address] [place] [address] Performed By: #### L XQ2400, 31765-4, [id number] ####[facility]ATORYCLIA [id number] [address] RBC Manual cnt (CSF) [#/Vol] 39 cells/uL High 0-5 [facility] Comment on above: Order Comment: Speci men Type: CEREBROSPINAL FLUIDOrdering Facility: [facility] Address: [address] [place] [address] Performed By: #### L [id number], 26941-7, [id number] ####[facility]ATORYCLIA [id number] [address] WBC Manual cnt (CSF) [#/Vol] 14 cells/uL High 0-5 [facility] Comment on above: Order Comment: Speci men Type: CEREBROSPINAL FLUIDOrdering Facility: [facility] Address: [address] [place] [address] Performed By: #### L [id number], 41640-3, [id number] ####[facility] LABORATORYCLIA [id number] [place] [address] [place] Glucose CSF-ncon 2 Glucose (CSF) [Mass/Vol] 64 mg/dL Normal 40-70 [facility] Comment on above: Order Comment: Speci men Type: CEREBROSPINAL FLUIDOrdering Facility: [facility] Address: [address] [place] [address] Result Comment: Lumb ar CSF glucose values of healthy patients are approximately 60% of the plasma values and must always be compared with a concurrently measured plasma value for adequate clinical interpretation.References: 1. Glucose HK (GLUC3) [package insert V 12.0 [place]er]. [employer], [place], [place]. September 2015. 2. Michelle Moore, Loki HGarfield (2015). Chapter 7: Glucose and Lactate. F. Irina rose al.(eds.), Cerebrospinal Fluid in Clinical Neurology. [place]: [employer]. Performed By: #### 2 342-4, 2880-3 ####[facility] LABORATORYCLIA [id number] [place] [address] [place] NUTRITIONon 07-27-2021 NUTRITION Normal [facility] Prot CSF-ncon 07-27-2021 Protein (CSF) [Mass/Vol] 58 mg/dL High 15-45 [facility] Comment on above: Order Comment: Speci men Type: CEREBROSPINAL FLUIDOrdering Facility: [facility] Address: [address] [place] [address] Performed By: #### 2 342-4, 2880-3 ####[facility] LABORATORYCLIA [id number] [place] [address] [place] aPTT PPPon 07-27-2021 aPTT Coag (PPP) [Time] 68.4 s High 23.0-32.4 [facility] Comment on above: Order Comment: Speci men Type: BLOOD SPECIMENOrdering Facility: [facility] Address: [address] [place] [address] Performed By: #### 1 4979-9 ####[facility] LABORATORYCLIA [id number] [address] aPTT Coag (PPP) [Time] 51.3 s High 23.0-32.4 [facility] Comment on above: Order Comment: Speci men Type: BLOOD SPECIMENOrdering Facility: [facility] Address: [address] [place] [address] Performed By: #### 1 4979-9 ####[facility] LABORATORYCLIA [id number] [address] ALLIED HEALTHon 07-26-2021 ALLIED HEALTH HNO ID: [id number] Author: Stephanie Maldonado, pastry finisher Service: Radiology Author Type: Entry Analyst Type: Allied Health Filed: 07/26/2021 4:10 PM Note Text: Spoke with nurse. Pt getting new EVD today. Try tomorrow. Normal [facility] Bacteria CSF Culton 07-27-19 Bacteria identified Cx Nom (CSF) Abnormal [facility] Comment on above: Performed By: #### 6 06-4 ####[facility] LABORATORYCLIA [id number] [address] STATES OF [facility] Basic metabolic 2000 panelon 07-26-2021 Anion gap [Moles/Vol] 6 mmol/L Low 9-18 [facility] Comment on above: Order Comment: Speci men Type: BLOOD SPECIMENOrdering Facility: [facility] Address: [address] [place] [address] Performed By: #### 2 4321-2 ####[facility] LABORATORYCLIA [id number] [address] [place] Calcium [Mass/Vol] 9.2 mg/dL Normal 8.5-10.2 [facility] Comment on above: Order Comment: Speci men Type: BLOOD SPECIMENOrdering Facility: [facility] Address: [address] [address] Performed By: #### 2 4321-2 ####[facility] LABORATORYCLIA [id number] [address] [place] Chloride [Moles/Vol] 99 mmol/L Normal 97-105 [facility] Comment on above: Order Comment: Speci men Type: BLOOD SPECIMENOrdering Facility: [facility] Address: [address] [place] [address] Performed By: #### 2 4321-2 ####[facility] LABORATORYCLIA [id number] [address] [place] CO2 [Moles/Vol] 32 mmol/L High 22-30 [facility] Comment on above: Order Comment: Speci men Type: BLOOD SPECIMENOrdering Facility: [facility] Address: [address] [place] [address] Performed By: #### 2 4321-2 ####[facility] LABORATORYCLIA [id number] [address] [place] Creatinine [Mass/Vol] 0.74 mg/dL Normal 0.73-1.22 [facility] Comment on above: Order Comment: Speci men Type: BLOOD SPECIMENOrdering Facility: [facility] Address: [address] [place] [address] Performed By: #### 2 4321-2 ####[facility] LABORATORYCLIA [id number] [address] ESTIMATED GLOMERULAR FILTRATION RATE 98 mL/min/1.73m??? Normal >=60 [facility] Comment on above: Order Comment: Speci men Type: BLOOD SPECIMENOrdering Facility: [facility] Address: [address] [place] [address] Result Comment: Luzmaria mated Glomerular Filtration Rate [...] By: #### 2 4321-2 ####[facility] LABORATORYCLIA [id number] [place] [address] [place] Glucose [Mass/Vol] 126 mg/dL High 74-99 [facility] Comment on above: Order Comment: Shira feldman Type: BLOOD SPECIMENOrdering Facility: [facility] Address: [address] [place] [address] Result Comment: The [place] Diabetes Association (ADA) provides guidance for cutoff [...] Standards of Medical Care in Diabetes 2016, [place] [employer] Association. Diabetes Care. 2016.39(Suppl 1). Performed By: #### 2 4321-2 ####[facility] LABORATORYCLIA [id number] [place] [address] [place] Potassium [Moles/Vol] 4.2 mmol/L Normal 3.7-5.1 [facility] Comment on above: Order Comment: Shira feldman Type: BLOOD SPECIMENOrdering Facility: [facility] Address: [address] [address] Performed By: #### 2 4321-2 ####[facility] LABORATORYCLIA [id number] [place] [address] [place] Sodium [Moles/Vol] 137 mmol/L Normal 136-144 [facility] Comment on above: Order Comment: Shira feldman Type: BLOOD SPECIMENOrdering Facility: [facility] Address: [address] [address] Performed By: #### 2 4321-2 ####[facility] LABORATORYCLIA [id number] [address] STATES [facility] Urea nitrogen [Mass/Vol] 36 mg/dL High 9-24 [facility] Comment on above: Order Comment: Speci men Type: BLOOD SPECIMENOrdering Facility: [facility] Address: [address] [place] [address] Performed By: #### 2 4321-2 ####[facility] LABORATORYCLIA [id number] [address] [place] CBC W Auto Differential pane l (Bld)on 07-26-2021 Basophils (Bld) [#/Vol] 0.04 10*3/uL Normal <0.11 [facility] Comment on above: Order Comment: Speci men Type: BLOOD SPECIMENOrdering Facility: [facility] Address: [address] [place] [address] Performed By: #### 5 7021-8 ####[facility] LABORATORYCLIA [id number] [address] STATES [facility] Basophils/100 WBC (Bld) 0.4 % Normal [facility] Comment on above: Order Comment: Speci men Type: BLOOD SPECIMENOrdering Facility: [facility] Address: [address] [place] [address] Performed By: #### 5 7021-8 ####[facility] LABORATORYCLIA [id number] [address] Differential cell count method Nom (Bld) Auto Normal [facility] Comment on above: Order Comment: Speci men Type: BLOOD SPECIMENOrdering Facility: [facility] Address: [address] [place] [address] Performed By: #### 5 7021-8 ####[facility] LABORATORYCLIA [id number] [address] [place] Eosinophils (Bld) [#/Vol] 0.63 10*3/uL High <0.46 [facility] Comment on above: Order Comment: Speci men Type: BLOOD SPECIMENOrdering Facility: [facility] Address: [address] [place] [address] Performed By: #### 5 7021-8 ####[facility] LABORATORYCLIA [id number] [address] [place] Eosinophils/100 WBC (Bld) 5.8 % Normal [facility] Comment on above: Order Comment: Speci men Type: BLOOD SPECIMENOrdering Facility: [facility] Address: [address] [place] [address] Performed By: #### 5 7021-8 ####[facility] LABORATORYCLIA [id number] [address] Erythrocyte distribution width (RBC) [Ratio] 16.8 % High 11.5-15.0 [facility] Comment on above: Order Comment: Speci men Type: BLOOD SPECIMENOrdering Facility: [facility] Address: [address] [place] [address] Performed By: #### 5 7021-8 ####[facility] LABORATORYCLIA [id number] [address] Hematocrit (Bld) [Volume fraction] 31.2 % Low 39.0-51.0 [facility] Comment on above: Order Comment: Speci men Type: BLOOD SPECIMENOrdering Facility: [facility] Address: [address] [place] [address] Performed By: #### 5 7021-8 ####[facility] LABORATORYCLIA [id number] [address] [place] Hemoglobin (Bld) [Mass/Vol] 9.1 g/dL Low 13.0-17.0 [facility] Comment on above: Order Comment: Speci men Type: BLOOD SPECIMENOrdering Facility: [facility] Address: [address] [place] [address] Performed By: #### 5 7021-8 ####[facility] LABORATORYCLIA [id number] [address] IMMATURE GRAN % 0.6 % Normal [facility] Comment on above: Order Comment: Speci men Type: BLOOD SPECIMENOrdering Facility: [facility] Address: [address] [place] [address] Performed By: #### 5 7021-8 ####[facility] LABORATORYCLIA [id number] [address] IMMATURE GRAN ABS 0.07 k/uL Normal <0.10 [facility] Comment on above: Order Comment: Speci men Type: BLOOD SPECIMENOrdering Facility: [facility] Address: [address] [place] [address] Performed By: #### 5 7021-8 ####[facility] LABORATORYCLIA [id number] [address] Lymphocytes (Bld) [#/Vol] 2.16 10*3/uL Normal 1.00-4.00 [facility] Comment on above: Order Comment: Speci men Type: BLOOD SPECIMENOrdering Facility: [facility] Address: [address] [place] [address] Performed By: #### 5 7021-8 ####[facility]ORATORYCLIA [id number] [address] Lymphocytes/100 WBC (Bld) 20.0 % Normal [facility] Comment on above: Order Comment: Speci men Type: BLOOD SPECIMENOrdering Facility: [facility] Address: [address] [place] [address] Performed By: #### 5 7021-8 ####[facility] LABORATORYCLIA [id number] [address] STATES [facility] MCH (RBC) [Entitic mass] 27.7 pg Normal 26.0-34.0 [facility] Comment on above: Order Comment: Speci men Type: BLOOD SPECIMENOrdering Facility: [facility] Address: [address] [place] [address] Performed By: #### 5 7021-8 ####[facility] LABORATORYCLIA [id number] [address] STATES OF [facility] MCHC (RBC) [Mass/Vol] 29.2 g/dL Low 30.5-36.0 [facility] Comment on above: Order Comment: Speci men Type: BLOOD SPECIMENOrdering Facility: [facility] Address: [address] [place] [address] Performed By: #### 5 7021-8 ####[facility] LABORATORYCLIA [id number] [address] MCV (RBC) [Entitic vol] 95.1 fL Normal 80.0-100.0 [facility] Comment on above: Order Comment: Speci men Type: BLOOD SPECIMENOrdering Facility: [facility] Address: [address] [place] [address] Performed By: #### 5 7021-8 ####[facility] LABORATORYCLIA [id number] [address] [place] Monocytes (Bld) [#/Vol] 0.63 10*3/uL Normal <0.87 [facility] Comment on above: Order Comment: Speci men Type: BLOOD SPECIMENOrdering Facility: [facility] Address: [address] [place] [address] Performed By: #### 5 7021-8 ####[facility] LABORATORYCLIA [id number] [address] Monocytes/100 WBC (Bld) 5.8 % Normal [facility] Comment on above: Order Comment: Speci men Type: BLOOD SPECIMENOrdering Facility: [facility] Address: [address] [place] [address] Performed By: #### 5 7021-8 ####[facility] LABORATORYCLIA [id number] [address] [place] Neutrophils (Bld) [#/Vol] 7.25 10*3/uL Normal 1.45-7.50 [facility] Comment on above: Order Comment: Speci men Type: BLOOD SPECIMENOrdering Facility: [facility] Address: [address] [place] [address] Performed By: #### 5 7021-8 ####[facility] LABORATORYCLIA [id number] [address] Neutrophils/100 WBC (Bld) 67.4 % Normal [facility] Comment on above: Order Comment: Speci men Type: BLOOD SPECIMENOrdering Facility: [facility] Address: [address] [place] [address] Performed By: #### 5 7021-8 ####[facility] LABORATORYCLIA [id number] [address] Nucleated RBC (Bld) [#/Vol] 10*3/uL Normal <0.01 [facility] Comment on above: Order Comment: Speci men Type: BLOOD SPECIMENOrdering Facility: [facility] Address: [address] [place] [address] Performed By: #### 5 7021-8 ####[facility] LABORATORYCLIA [id number] [address] Nucleated RBC/100 WBC (Bld) [Ratio] 0.0 /100 WBC Normal [facility] Comment on above: Order Comment: Speci men Type: BLOOD SPECIMENOrdering Facility: [facility] Address: [address] [place] [address] Performed By: #### 5 7021-8 ####[facility] LABORATORYCLIA [id number] [address] Platelet mean volume (Bld) [Entitic vol] 11.2 fL Normal 9.0-12.7 [facility] Comment on above: Order Comment: Speci men Type: BLOOD SPECIMENOrdering Facility: [facility] Address: [address] [place] [address] Performed By: #### 5 7021-8 ####[facility] LABORATORYCLIA [id number] [address] [place] Platelets (Bld) [#/Vol] 245 10*3/uL Normal 150-400 [facility] Comment on above: Order Comment: Speci men Type: BLOOD SPECIMENOrdering Facility: [facility] Address: [address] [place], [place] [address] Performed By: #### 5 7021-8 ####[facility] LABORATORYCLIA [id number] [address] STATES OF [facility] RBC (Bld) [#/Vol] 3.28 10*6/uL Low 4.20-6.00 [facility] Comment on above: Order Comment: Speci men Type: BLOOD SPECIMENOrdering Facility: [facility] Address: [address] [place], [place] [address] Performed By: #### 5 7021-8 ####[facility] LABORATORYCLIA [id number] [address] STATES OF [facility] WBC (Bld) [#/Vol] 10.78 10*3/uL Normal 3.70-11.00 [facility] Comment on above: Order Comment: Speci men Type: BLOOD SPECIMENOrdering Facility: [facility] Address: [address] [place] [address] Performed By: #### 5 7021-8 ####[facility] LABORATORYCLIA [id number] [address] OF [facility] CSF MANUAL DIFFon 07-26-2021 DIF TTL, CSF 100 cells counted Normal [facility] Comment on above: Order Comment: Speci men Type: CEREBROSPINAL FLUIDOrdering Facility: [facility] Address: [address] [place], [place] [address] Performed By: #### 3 4563-7, [id number], [id number] ####[facility] LABORATORYCLIA [id number] [address] [place] LYMPH%, CSF 26 % Low 50-90 [facility] Comment on above: Order Comment: Speci men Type: CEREBROSPINAL FLUIDOrdering Facility: [facility] Address: [address] [place], [place] [address] Performed By: #### 3 4563-7, [id number], [id number] ####[facility]ORATORYCLIA [id number] [place] [address] [place] MACRO%, CSF 10 % High <1 [facility] Comment on above: Order Comment: Speci men Type: CEREBROSPINAL FLUIDOrdering Facility: [facility] Address: [address] [place] [address] Performed By: #### 3 4563-7, [id number], [id number] ####[facility]ORATORYCLIA [id number] [place] [address] [place] MONO%, CSF 20 % Normal 10-50 [facility] Comment on above: Order Comment: Speci men Type: CEREBROSPINAL FLUIDOrdering Facility: [facility] Address: [address] [place] [address] Performed By: #### 3 4563-7, [id number], [id number] ####[facility]ORATORYCLIA [id number] [place] [address] [place] NEUT%, CSF 40 % High 0-3 [facility] Comment on above: Order Comment: Speci men Type: CEREBROSPINAL FLUIDOrdering Facility: [facility] Address: [address] [place] [address] Performed By: #### 3 4563-7, [id number], [id number] ####[facility]ORATORYCLIA [id number] [address] OF [place] OTHER CL%, CSF 2 % Normal [facility] Comment on above: Order Comment: Speci men Type: CEREBROSPINAL FLUIDOrdering Facility: [facility] Address: [address] [place] [address] Result Comment: Path review to follow. Performed By: #### 3 4563-7, [id number], [id number] ####[facility]ORATORYCLIA [id number] [place] [address] [place] REAC LYMPH %, CSF 2 % Normal [facility] Comment on above: Order Comment: Speci men Type: CEREBROSPINAL FLUIDOrdering Facility: [facility] Address: [address] [place] [address] Performed By: #### 3 4563-7, [id number], [id number] ####[facility] LABORATORYCLIA [id number] [address] CSF PATHOLOGIST INTERP (LAB REFLEX ORDER-NO BILL)on 07-26-2021 CSF STAFF REVIEW Negative for maligna nt cells. Rare bacteria present, cocci in pairs and chains. Correlation with CSF cultures is recommended. Normal [facility] Comment on above: Order Comment: Speci men Type: CEREBROSPINAL FLUIDOrdering Facility: [facility] Address: [address] [place] [address] Performed By: #### 3 4563-7, [id number], [id number] ####[facility] LABORATORYCLIA [id number] [address] Pathologist name Reviewed by Amador Stevens MD [facility] Comment on above: Order Comment: Speci men Type: CEREBROSPINAL FLUIDOrdering Facility: [facility] Address: [address] [place] [address] Performed By: #### 3 4563-7, [id number], [id number] ####[facility] LABORATORYCLIA [id number] [address] [place] Cell count panel (CSF)on Clarity (CSF) Slightly Cloudy Abnormal Clear [facility] Comment on above: Order Comment: Speci men Type: CEREBROSPINAL FLUIDOrdering Facility: [facility] Address: [address] [place] [address] Performed By: #### 3 4563-7, [id number], [id number] ####[facility] LABORATORYCLIA [id number] [address] [place] Clarity (Unsp spec) Clear Normal Clear [facility] Comment on above: Order Comment: Speci men Type: CEREBROSPINAL FLUIDOrdering Facility: [facility] Address: [address] [place] [address] Performed By: #### 3 4563-7, [id number], [id number] ####[facility] LABORATORYCLIA [id number] [address] Color (CSF) Colorless Normal Colorless [facility] Comment on above: Order Comment: Speci men Type: CEREBROSPINAL FLUIDOrdering Facility: [facility] Address: [address] [place] [address] Performed By: #### 3 4563-7, [id number], [id number] ####[facility]ORATORYCLIA [id number] [address] Color (Spun CSF) Not Indicated Normal Colorless [facility] Comment on above: Order Comment: Speci men Type: CEREBROSPINAL FLUIDOrdering Facility: [facility] Address: [address] [place] [address] Performed By: #### 3 4563-7, [id number], [id number] ####[facility] LABORATORYCLIA [id number] [address] CSF TUBE NUMBER [employer] Normal [facility] Comment on above: Order Comment: Speci men Type: CEREBROSPINAL FLUIDOrdering Facility: [facility] Address: [address] [place] [address] Performed By: #### 3 4563-7, [id number], [id number] ####[facility] LABORATORYCLIA [id number] [address] RBC Manual cnt (CSF) [#/Vol] 1 cells/uL Normal 0-[address] [place] [address] Comment on above: Order Comment: Speci men Type: CEREBROSPINAL FLUIDOrdering Facility: [facility] Address: [address] [address] Performed By: #### 3 4563-7, [id number], [id number] ####[facility]ORATORYCLIA [id number] [address] WBC Manual cnt (CSF) [#/Vol] 50 cells/uL High 0-5 [facility] Comment on above: Order Comment: Speci men Type: CEREBROSPINAL FLUIDOrdering Facility: [facility] Address: [address] [place] [address] Performed By: #### 3 4563-7, [id number], [id number] ####[facility] LABORATORYCLIA [id number] [place] [address] [place] Glucose CSF-mCncon Glucose (CSF) [Mass/Vol] 64 mg/dL Normal 40-70 [facility] Comment on above: Order Comment: Speci men Type: CEREBROSPINAL FLUIDOrdering Facility: [facility] Address: [address] [place] [address] Result Comment: Lumb ar CSF glucose values of healthy patients are approximately 60% of the plasma values and must always be compared with a concurrently measured plasma value for adequate clinical interpretation.References: 1. Glucose HK (GLUC3) [package insert V 12.0 [place]]. [employer], [place], [place]. September 2015. 2. Michelle Moore, Loki HGarfield (2015). Chapter 7: Glucose and Lactate. F. Irina rose al.(eds.), Cerebrospinal Fluid in Clinical Neurology. [place]: [employer]. Performed By: #### 2 880-3, 2342-4 ####[facility] LABORATORYCLIA [id number] [place] [address] [place] Magnesium SerPl-ncon 07-26 Magnesium [Mass/Vol] 2.3 mg/dL Normal 1.7-2.3 [facility] Comment on above: Order Comment: Speci men Type: BLOOD SPECIMENOrdering Facility: [facility] Address: [address] [place] [address] Performed By: #### 1 9123-9, 2777-1, 3016-3 ####[facility] LABORATORYCLIA [id number] [place] [address] [place] NURSING PROGon 07-26-2021 NURSING PROG Normal [facility] Phosphate SerPl-mCncon 07-26 Phosphate [Mass/Vol] 2.6 mg/dL Low 2.7-4.8 [facility] Comment on above: Order Comment: Speci men Type: BLOOD SPECIMENOrdering Facility: [facility] Address: [address] [place] [address] Performed By: #### 1 9123-9, 2777-1, 3016-3 ####[facility] LABORATORYCLIA [id number] [place] [address] [place] Prot CSF-mCncon 07-26-2021 Protein (CSF) [Mass/Vol] 64 mg/dL High 15-45 [facility] Comment on above: Order Comment: Speci men Type: CEREBROSPINAL FLUIDOrdering Facility: [facility] Address: [address] [place] [address] Performed By: #### 2 880-3, 2342-4 ####[facility] LABORATORYCLIA [id number] [address] OF [facility] THERAPY NTon 07-26-2021 THERAPY NT Normal [facility] TSH SerPl-aCncon 07-26-2021 TSH Qn 1.470 m[IU]/L Normal 0.270-4.200 [facility] Comment on above: Order Comment: Speci men Type: BLOOD SPECIMENOrdering Facility: [facility] Address: [address] [place] [address] Performed By: #### 1 9123-9, 2777-1, 3016-3 ####[facility] LABORATORYCLIA [id number] [address] OF [place] VITAMIN B12 BLOODon 07-27-19 Cobalamin (Vitamin B12) [Mass/Vol] 934 pg/mL Normal 232-1,245 [facility] Comment on above: Order Comment: Speci men Type: BLOOD SPECIMENOrdering Facility: [facility] Address: [address] [place] [address] Performed By: #### B 12 ####[facility] LABORATORYCLIA [id number] [place] [address] [place] aPTT PPPon 07-26-2021 aPTT Coag (PPP) [Time] 53.6 s High 23.0-32.4 [facility] Comment on above: Order Comment: Speci men Type: BLOOD SPECIMENOrdering Facility: [facility] Address: [address] [place] [address] Performed By: #### 1 4979-9 ####[facility] LABORATORYCLIA [id number] [address] aPTT Coag (PPP) [Time] 44.9 s High 23.0-32.4 [facility] Comment on above: Order Comment: Speci men Type: BLOOD SPECIMENOrdering Facility: [facility] Address: [address] [place] [address] Performed By: #### 1 4979-9 ####[facility] LABORATORYCLIA [id number] [address] ALLIED HEALTHon 07-25-2021 ALLIED HEALTH HNO ID: [id number] Author: RT aRjwinder(R) Service: Radiology Author Type: Technologist Type: Allied Health Filed: 07/25/2021 1:37 PM Note Text: Called floor for MRI screening form [id number] Normal [facility] Bacteria Bld Culton 07-26-19 22 Bacteria identified Cx Nom (Bld) CULTURE, BLOOD: No growth 5 days Normal [facility] Comment on above: Performed By: #### 6 00-7 ####[facility] LABORATORYCLIA [id number] [address] Bacteria identified Cx Nom (Bld) CULTURE, BLOOD: No growth 5 days Normal [facility] Comment on above: Performed By: #### 6 00-7 ####[facility] LABORATORYCLIA [id number] [address] CASE MANAGEMon 07-25-2021 CASE MANAGEM Normal [facility] CBC W Auto Differential pane l (Bld)on 07-25-2021 Basophils (Bld) [#/Vol] 0.06 10*3/uL Normal <0.11 [facility] Comment on above: Order Comment: Speci men Type: BLOOD SPECIMENOrdering Facility: [facility] Address: [address] [address] Performed By: #### 5 7021-8 ####[facility] LABORATORYCLIA [id number] [address] STATES [facility] Basophils/100 WBC (Bld) 0.6 % Normal [facility] Comment on above: Order Comment: Speci men Type: BLOOD SPECIMENOrdering Facility: [facility] Address: [address] [place] [address] Performed By: #### 5 7021-8 ####[facility] LABORATORYCLIA [id number] [address] Differential cell count method Nom (Bld) Auto Normal [facility] Comment on above: Order Comment: Speci men Type: BLOOD SPECIMENOrdering Facility: [facility] Address: [address] [place] [address] Performed By: #### 5 7021-8 ####[facility] LABORATORYCLIA [id number] [address] [place] Eosinophils (Bld) [#/Vol] 0.26 10*3/uL Normal <0.46 [facility] Comment on above: Order Comment: Speci men Type: BLOOD SPECIMENOrdering Facility: [facility] Address: [address] [place] [address] Performed By: #### 5 7021-8 ####[facility]ORATORYCLIA [id number] [address] STATES [facility] Eosinophils/100 WBC (Bld) 2.5 % Normal [facility] Comment on above: Order Comment: Speci men Type: BLOOD SPECIMENOrdering Facility: [facility] Address: [address] [place] [address] Performed By: #### 5 7021-8 ####[facility]ORATORYCLIA [id number] [address] [place] Erythrocyte distribution width (RBC) [Ratio] 16.9 % High 11.5-15.0 [facility] Comment on above: Order Comment: Speci men Type: BLOOD SPECIMENOrdering Facility: [facility] Address: [address] [place] [address] Performed By: #### 5 7021-8 ####[facility] LABORATORYCLIA [id number] [address] OF [facility] Hematocrit (Bld) [Volume fraction] 29.6 % Low 39.0-51.0 [facility] Comment on above: Order Comment: Speci men Type: BLOOD SPECIMENOrdering Facility: [facility] Address: [address] [place] [address] Performed By: #### 5 7021-8 ####[facility] LABORATORYCLIA [id number] [address] Hemoglobin (Bld) [Mass/Vol] 8.8 g/dL Low 13.0-17.0 [facility] Comment on above: Order Comment: Speci men Type: BLOOD SPECIMENOrdering Facility: [facility] Address: [address] [place] [address] Performed By: #### 5 7021-8 ####[facility] LABORATORYCLIA [id number] [address] IMMATURE GRAN % 0.6 % Normal [facility] Comment on above: Order Comment: Speci men Type: BLOOD SPECIMENOrdering Facility: [facility] Address: [address] [place] [address] Performed By: #### 5 7021-8 ####[facility] LABORATORYCLIA [id number] [address] IMMATURE GRAN ABS 0.06 k/uL Normal <0.10 [facility] Comment on above: Order Comment: Speci men Type: BLOOD SPECIMENOrdering Facility: [facility] Address: [address] [place] [address] Performed By: #### 5 7021-8 ####[facility] LABORATORYCLIA [id number] [address] OF [facility] Lymphocytes (Bld) [#/Vol] 2.15 10*3/uL Normal 1.00-4.00 [facility] Comment on above: Order Comment: Speci men Type: BLOOD SPECIMENOrdering Facility: [facility] Address: [address] [place] [address] Performed By: #### 5 7021-8 ####[facility] LABORATORYCLIA [id number] [address] Lymphocytes/100 WBC (Bld) 20.7 % Normal [facility] Comment on above: Order Comment: Speci men Type: BLOOD SPECIMENOrdering Facility: [facility] Address: [address] [place] [address] Performed By: #### 5 7021-8 ####[facility] LABORATORYCLIA [id number] [address] STATES [facility] MCH (RBC) [Entitic mass] 28.2 pg Normal 26.0-34.0 [facility] Comment on above: Order Comment: Speci men Type: BLOOD SPECIMENOrdering Facility: [facility] Address: [address] [place] [address] Performed By: #### 5 7021-8 ####[facility] LABORATORYCLIA [id number] [address] STATES OF [facility] MCHC (RBC) [Mass/Vol] 29.7 g/dL Low 30.5-36.0 [facility] Comment on above: Order Comment: Speci men Type: BLOOD SPECIMENOrdering Facility: [facility] Address: [address] [place] [address] Performed By: #### 5 7021-8 ####[facility] LABORATORYCLIA [id number] [address] MCV (RBC) [Entitic vol] 94.9 fL Normal 80.0-100.0 [facility] Comment on above: Order Comment: Speci men Type: BLOOD SPECIMENOrdering Facility: [facility] Address: [address] [place] [address] Performed By: #### 5 7021-8 ####[facility]ORATORYCLIA [id number] [place] [address] [place] Monocytes (Bld) [#/Vol] 0.62 10*3/uL Normal <0.87 [facility] Comment on above: Order Comment: Speci men Type: BLOOD SPECIMENOrdering Facility: [facility] Address: [address] [place] [address] Performed By: #### 5 7021-8 ####[facility]ATORYCLIA [id number] [address] [place] Monocytes/100 WBC (Bld) 6.0 % Normal [facility] Comment on above: Order Comment: Speci men Type: BLOOD SPECIMENOrdering Facility: [facility] Address: [address] [place] [address] Performed By: #### 5 7021-8 ####[facility] LABORATORYCLIA [id number] [address] [place] Neutrophils (Bld) [#/Vol] 7.25 10*3/uL Normal 1.45-7.50 [facility] Comment on above: Order Comment: Speci men Type: BLOOD SPECIMENOrdering Facility: [facility] Address: [address] [place] [address] Performed By: #### 5 7021-8 ####[facility]ORYCLIA [id number] [address] [place] Neutrophils/100 WBC (Bld) 69.6 % Normal [facility] Comment on above: Order Comment: Speci men Type: BLOOD SPECIMENOrdering Facility: [facility] Address: [address] [place] [address] Performed By: #### 5 7021-8 ####[facility] LABORATORYCLIA [id number] [place] [address] [place] Nucleated RBC (Bld) [#/Vol] 10*3/uL Normal <0.01 [facility] Comment on above: Order Comment: Speci men Type: BLOOD SPECIMENOrdering Facility: [facility] Address: [address] [place] [address] Performed By: #### 5 7021-8 ####[facility] LABORATORYCLIA [id number] [address] [place] Nucleated RBC/100 WBC (Bld) [Ratio] 0.0 /100 WBC Normal [facility] Comment on above: Order Comment: Speci men Type: BLOOD SPECIMENOrdering Facility: [facility] Address: [address] [place] [address] Performed By: #### 5 7021-8 ####[facility] LABORATORYCLIA [id number] [place] [address] [place] Platelet mean volume (Bld) [Entitic vol] 11.3 fL Normal 9.0-12.7 [facility] Comment on above: Order Comment: Speci men Type: BLOOD SPECIMENOrdering Facility: [facility] Address: [address] [place] [address] Performed By: #### 5 7021-8 ####[facility] LABORATORYCLIA [id number] [place] [address] [place] Platelets (Bld) [#/Vol] 243 10*3/uL Normal 150-400 [facility] Comment on above: Order Comment: Speci men Type: BLOOD SPECIMENOrdering Facility: [facility] Address: [address] Performed By: #### 5 7021-8 ####[facility] LABORATORYCLIA [id number] [place] [address] [place] RBC (Bld) [#/Vol] 3.12 10*6/uL Low 4.20-6.00 [facility] Comment on above: Order Comment: Speci men Type: BLOOD SPECIMENOrdering Facility: [facility] Address: [address] [place] [address] Performed By: #### 5 7021-8 ####[facility] LABORATORYCLIA [id number] [place] [address] [place] WBC (Bld) [#/Vol] 10.40 10*3/uL Normal 3.70-11.00 [facility] Comment on above: Order Comment: Speci men Type: BLOOD SPECIMENOrdering Facility: [facility] Address: [address] [place] [address] Performed By: #### 5 7021-8 ####[facility] LABORATORYCLIA [id number] [address] [place] CONSULT PROGon 07-25-2021 CONSULT PROG Normal [facility] MYCOPLASMA PNEUM IGMon 07-25 M. PNEUMO IGM, QUAL Negative Normal Negative [facility] Comment on above: Order Comment: Speci men Type: BLOOD SPECIMENOrdering Facility: [facility] Address: [address] [place] [address] Result Comment: Myco plasma pneumoniae IgM antibody test is used as an aid in diagnosis of recent infection with M. pneumoniae. It may occasionally remain elevated for extended periods after an acute infection. Cannot exclude recent infection if the specimen collected 7-10 days after onset of signs and symptoms. Clinical correlation is required. Performed By: #### M YCOPM ####[facility] LABCLIA [id number] [facility] [id number] [place] NURSING PROGon 07-25-2021 NURSING PROG Normal [facility] THERAPY NTon 07-25-2021 THERAPY NT Normal [facility] THERAPY NT Normal [facility] aPTT PPPon 07-25-2021 aPTT Coag (PPP) [Time] 62.6 s High 23.0-32.4 [facility] Comment on above: Order Comment: Speci men Type: BLOOD SPECIMENOrdering Facility: [facility] Address: [address] [place] [address] Performed By: #### 1 4979-9 ####[facility] LABORATORYCLIA [id number] [address] [place] Bacteria Ur Culton 03-20-202 2 Bacteria identified Cx Nom (U) CULTURE, URINE: No growth (<100 CFU/ml) Normal [facility] Comment on above: Performed By: #### 6 30-4 ####[facility] LABORATORYCLIA [id number] [place] [address] [place] Basic metabolic 2000 panelon 07-24-2021 Anion gap [Moles/Vol] 13 mmol/L Normal 9-18 [facility] Comment on above: Order Comment: Speci men Type: BLOOD SPECIMENOrdering Facility: [facility] Address: [address] [place] [address] Performed By: #### 1 9123-9, PROCCARLITOS, 7-1, 95799-8 ####[facility] LABORATORYCLIA [id number] [place] [address] [place] Calcium [Mass/Vol] 9.5 mg/dL Normal 8.5-10.2 [facility] Comment on above: Order Comment: Speci men Type: BLOOD SPECIMENOrdering Facility: [facility] Address: [address] [address] Performed By: #### 1 9123-9, PROCAL, 2776-1, 71891-0 ####[facility] LABORATORYCLIA [id number] [address] [place] Chloride [Moles/Vol] 102 mmol/L Normal 97-105 [facility] Comment on above: Order Comment: Speci men Type: BLOOD SPECIMENOrdering Facility: [facility] Address: [address] [address] Performed By: #### 1 9123-9, PROCAL, 2776-1, 43988-5 ####[facility] LABORATORYCLIA [id number] [place] [address] [place] CO2 [Moles/Vol] 28 mmol/L Normal 22-30 [facility] Comment on above: Order Comment: Speci men Type: BLOOD SPECIMENOrdering Facility: [facility] Address: [address] [address] Performed By: #### 1 9123-9, PROCAL, 2777-1, 10458-3 ####[facility] [id number] [address] STATES OF [facility] Creatinine [Mass/Vol] 0.86 mg/dL Normal 0.73-1.22 [facility] Comment on above: Order Comment: Speci men Type: BLOOD SPECIMENOrdering Facility: [facility] Address: [address] [address] Performed By: #### 1 9123-9, PROCNY, 2777-1, 03998-7 ####[facility]ITALCLIA [id number] [address] ESTIMATED GLOMERULAR FILTRATION RATE 94 mL/min/1.73m??? Normal >=60 [facility] Comment on above: Order Comment: Speci men Type: BLOOD SPECIMENOrdering Facility: [facility] Address: [address] [address] Result Comment: Luzmaria mated Glomerular Filtration Rate [...] actual GFR. Performed By: #### 1 9123-9, [facility], 2777-1, 18392-2 ####[facility] LABORATORYCLIA [id number] [address] STATES [facility] Glucose [Mass/Vol] 148 mg/dL High 74-99 [facility] Comment on above: Order Comment: Speci men Type: BLOOD SPECIMENOrdering Facility: [facility] Address: [address] [address] Result Comment: The [place] Diabetes Association (ADA) provides guidance for cutoff [...] Standards of Medical Care in Diabetes 2016, [place] [employer]. Diabetes Care. 2016.39(Suppl 1). Performed By: #### 1 9123-9, KATIE, 2776-, 26064-3 ####[facility] LABORATORYCLIA [id number] [place] [address] [place] Potassium [Moles/Vol] 4.0 mmol/L Normal 3.7-5.1 [facility] Comment on above: Order Comment: Shira feldman Type: BLOOD SPECIMENOrdering Facility: [facility] Address: [address] [place] [address] Performed By: #### 1 9123-9, [facility], 2776-05, 87431-5 ####[facility]ITALCLIA [id number] [address] STATES OF [facility] Sodium [Moles/Vol] 143 mmol/L Normal 136-144 [facility] Comment on above: Order Comment: Shira feldman Type: BLOOD SPECIMENOrdering Facility: [facility] Address: [address] [place] [address] Performed By: #### 1 9123-9, [place], 2776-05, 51979-8 ####[facility] LABORATORYCLIA [id number] [address] STATES OF [facility] Urea nitrogen [Mass/Vol] 38 mg/dL High 9-24 [facility] Comment on above: Order Comment: Shira feldman Type: BLOOD SPECIMENOrdering Facility: [facility] Address: [address] [place] [address] Performed By: #### 1 9123-9, [facility], 2776-1, 11361-1 ####[facility] LABORATORYCLIA [id number] [place] [address] [place] CBC W Auto Differential pane l (Bld)on 07-24-2021 Basophils (Bld) [#/Vol] 0.06 10*3/uL Normal <0.11 [facility] Comment on above: Order Comment: Speci men Type: BLOOD SPECIMENOrdering Facility: [facility] Address: [address] [address] Performed By: #### 5 7021-8 ####[facility]ORATORYCLIA [id number] [place] [address] [place] Basophils/100 WBC (Bld) 0.6 % Normal [facility] Comment on above: Order Comment: Speci men Type: BLOOD SPECIMENOrdering Facility: [facility] Address: [address] [place] [address] Performed By: #### 5 7021-8 ####[facility] LABORATORYCLIA [id number] [address] STATES OF [facility] Differential cell count method Nom (Bld) Auto Normal [facility] Comment on above: Order Comment: Speci men Type: BLOOD SPECIMENOrdering Facility: [facility] Address: [address] [place] [address] Performed By: #### 5 7021-8 ####[facility] LABORATORYCLIA [id number] [place] [address] [place] Eosinophils (Bld) [#/Vol] 0.03 10*3/uL Normal <0.46 [facility] Comment on above: Order Comment: Speci men Type: BLOOD SPECIMENOrdering Facility: [facility] Address: [address] [place] [address] Performed By: #### 5 7021-8 ####[facility] LABORATORYCLIA [id number] [address] Eosinophils/100 WBC (Bld) 0.3 % Normal [facility] Comment on above: Order Comment: Speci men Type: BLOOD SPECIMENOrdering Facility: [facility] Address: [address] [place] [address] Performed By: #### 5 7021-8 ####[facility] LABORATORYCLIA [id number] [address] Erythrocyte distribution width (RBC) [Ratio] 17.0 % High 11.5-15.0 [facility] Comment on above: Order Comment: Speci men Type: BLOOD SPECIMENOrdering Facility: [facility] Address: [address] [place] [address] Performed By: #### 5 7021-8 ####[facility] LABORATORYCLIA [id number] [address] Hematocrit (Bld) [Volume fraction] 30.5 % Low 39.0-51.0 [facility] Comment on above: Order Comment: Speci men Type: BLOOD SPECIMENOrdering Facility: [facility] Address: [address] [place] [address] Performed By: #### 5 7021-8 ####[facility] LABORATORYCLIA [id number] [address] Hemoglobin (Bld) [Mass/Vol] 9.0 g/dL Low 13.0-17.0 [facility] Comment on above: Order Comment: Speci men Type: BLOOD SPECIMENOrdering Facility: [facility] Address: [address] [place] [address] Performed By: #### 5 7021-8 ####[facility] LABORATORYCLIA [id number] [address] IMMATURE GRAN % 0.5 % Normal [facility] Comment on above: Order Comment: Speci men Type: BLOOD SPECIMENOrdering Facility: [facility] Address: [address] [place] [address] Performed By: #### 5 7021-8 ####[facility] LABORATORYCLIA [id number] [address] IMMATURE GRAN ABS 0.05 k/uL Normal <0.10 [facility] Comment on above: Order Comment: Speci men Type: BLOOD SPECIMENOrdering Facility: [facility] Address: [address] [address] Performed By: #### 5 7021-8 ####[facility] LABORATORYCLIA [id number] [address] [place] Lymphocytes (Bld) [#/Vol] 1.68 10*3/uL Normal 1.00-4.00 [facility] Comment on above: Order Comment: Speci men Type: BLOOD SPECIMENOrdering Facility: [facility] Address: [address] [place] [address] Performed By: #### 5 7021-8 ####[facility] LABORATORYCLIA [id number] [address] Lymphocytes/100 WBC (Bld) 16.2 % Normal [facility] Comment on above: Order Comment: Speci men Type: BLOOD SPECIMENOrdering Facility: [facility] Address: [address] [place] [address] Performed By: #### 5 7021-8 ####[facility] LABORATORYCLIA [id number] [address] STATES OF [facility] MCH (RBC) [Entitic mass] 27.4 pg Normal 26.0-34.0 [facility] Comment on above: Order Comment: Speci men Type: BLOOD SPECIMENOrdering Facility: [facility] Address: [address] [place] [address] Performed By: #### 5 7021-8 ####[facility] LABORATORYCLIA [id number] [address] [place] MCHC (RBC) [Mass/Vol] 29.5 g/dL Low 30.5-36.0 [facility] Comment on above: Order Comment: Speci men Type: BLOOD SPECIMENOrdering Facility: [facility] Address: [address] [place] [address] Performed By: #### 5 7021-8 ####[facility] LABORATORYCLIA [id number] [address] [place] MCV (RBC) [Entitic vol] 93.0 fL Normal 80.0-100.0 [facility] Comment on above: Order Comment: Speci men Type: BLOOD SPECIMENOrdering Facility: [facility] Address: [address] [place] [address] Performed By: #### 5 7021-8 ####[facility] LABORATORYCLIA [id number] [place] [address] [place] Monocytes (Bld) [#/Vol] 0.63 10*3/uL Normal <0.87 [facility] Comment on above: Order Comment: Speci men Type: BLOOD SPECIMENOrdering Facility: [facility] Address: [address] [place] [address] Performed By: #### 5 7021-8 ####[facility] LABORATORYCLIA [id number] [address] [place] Monocytes/100 WBC (Bld) 6.1 % Normal [facility] Comment on above: Order Comment: Speci men Type: BLOOD SPECIMENOrdering Facility: [facility] Address: [address] [place] [address] Performed By: #### 5 7021-8 ####[facility] LABORATORYCLIA [id number] [place] [address] [place] Neutrophils (Bld) [#/Vol] 7.91 10*3/uL High 1.45-7.50 [facility] Comment on above: Order Comment: Speci men Type: BLOOD SPECIMENOrdering Facility: [facility] Address: [address] [place] [address] Performed By: #### 5 7021-8 ####[facility]ORATORYCLIA [id number] [place] [address] [place] Neutrophils/100 WBC (Bld) 76.3 % Normal [facility] Comment on above: Order Comment: Speci men Type: BLOOD SPECIMENOrdering Facility: [facility] Address: [address] [place] [address] Performed By: #### 5 7021-8 ####[facility]ORATORYCLIA [id number] [address] [place] Nucleated RBC (Bld) [#/Vol] 10*3/uL Normal <0.01 [facility] Comment on above: Order Comment: Speci men Type: BLOOD SPECIMENOrdering Facility: [facility] Address: [address] [place] [address] Performed By: #### 5 7021-8 ####[facility] LABORATORYCLIA [id number] [address] [place] Nucleated RBC/100 WBC (Bld) [Ratio] 0.0 /100 WBC Normal [facility] Comment on above: Order Comment: Speci men Type: BLOOD SPECIMENOrdering Facility: [facility] Address: [address] [place] [address] Performed By: #### 5 7021-8 ####[facility] LABORATORYCLIA [id number] [address] [place] Platelet mean volume (Bld) [Entitic vol] 11.1 fL Normal 9.0-12.7 [facility] Comment on above: Order Comment: Speci men Type: BLOOD SPECIMENOrdering Facility: [facility] Address: [address] [place] [address] Performed By: #### 5 7021-8 ####[facility] LABORATORYCLIA [id number] [address] [place] Platelets (Bld) [#/Vol] 285 10*3/uL Normal 150-400 [facility] Comment on above: Order Comment: Speci men Type: BLOOD SPECIMENOrdering Facility: [facility] Address: [address] [place] [address] Performed By: #### 5 7021-8 ####[facility] LABORATORYCLIA [id number] [address] [place] RBC (Bld) [#/Vol] 3.28 10*6/uL Low 4.20-6.00 [facility] Comment on above: Order Comment: Speci men Type: BLOOD SPECIMENOrdering Facility: [facility] Address: [address] [place] [address] Performed By: #### 5 7021-8 ####[facility] LABORATORYCLIA [id number] [place] [address] [place] WBC (Bld) [#/Vol] 10.36 10*3/uL Normal 3.70-11.00 [facility] Comment on above: Order Comment: Speci men Type: BLOOD SPECIMENOrdering Facility: [facility] Address: [address] [place] [address] Performed By: #### 5 7021-8 ####[facility] LABORATORYCLIA [id number] [address] [place] Legionella Ag Ur Qlon 2021 Legionella sp Ag Ql (U) Negative Normal Negative [facility] Comment on above: Order Comment: Speci men Type: URINE SPECIMENOrdering Facility: [facility] Address: [address] [place] [address] Performed By: #### 3 2781-7 ####[facility] LABORATORYCLIA [id number] [address] [place] Magnesium SerPl-mCncon 07-24 Magnesium [Mass/Vol] 2.3 mg/dL Normal 1.7-2.3 [facility] Comment on above: Order Comment: Speci men Type: BLOOD SPECIMENOrdering Facility: [facility] Address: [address] [place] [address] Performed By: #### 1 9123-9, PROCAL, 2777-1, 49629-8 ####[facility] LABORATORYCLIA [id number] [place] [address] [place] NURSING PROGon 07-24-2021 NURSING PROG Normal [facility] PROCALCITONIN (LAB)on 2021 Procalcitonin [Mass/Vol] 0.15 ng/mL High <0.09 [facility] Comment on above: Order Comment: Speci men Type: BLOOD SPECIMENOrdering Facility: [facility] Address: [address] [place] [address] Result Comment: For a guided interpretation of test results, please visit the Change in Procalcitonin Calculator, [email or web address]. Performed By: #### 1 9123-9, PROCAL, 2777-1, 53780-7 ####[facility] LABORATORYCLIA [id number] [address] Phosphate SerPl-mCncon 07-24 Phosphate [Mass/Vol] 3.9 mg/dL Normal 2.7-4.8 [facility] Comment on above: Order Comment: Speci men Type: BLOOD SPECIMENOrdering Facility: [facility] Address: [address] [place] [address] Performed By: #### 1 9123-9, PROCAL, 2777-1, 28338-1 ####[facility] LABORATORYCLIA [id number] [address] [place] STREPTOCOCCUS PNEUMONIAE AGo n 07-24-2021 STREPTOCOCCUS PNEUMONIAE AG Normal [facility] Comment on above: Performed By: #### S PNAG ####[facility] LABORATORYCLIA [id number] [address] [place] aPTT PPPon 07-24-2021 aPTT Coag (PPP) [Time] 60.8 s High 23.0-32.4 [facility] Comment on above: Order Comment: Speci men Type: BLOOD SPECIMENOrdering Facility: [facility] Address: [address] [place] [address] Performed By: #### 1 4979-9 ####[facility] LABORATORYCLIA [id number] [address] aPTT Coag (PPP) [Time] 38.2 s High 23.0-32.4 [facility] Comment on above: Order Comment: Speci men Type: BLOOD SPECIMENOrdering Facility: [facility] Address: [address] [place] [address] Performed By: #### 1 4979-9 ####[facility] LABORATORYCLIA [id number] [address] [place] aPTT Coag (PPP) [Time] 35.9 s High 23.0-32.4 [facility] Comment on above: Order Comment: Speci men Type: BLOOD SPECIMENOrdering Facility: [facility] Address: [address] [place] [address] Performed By: #### 1 4979-9 ####[facility] LABORATORYCLIA [id number] [address] aPTT Coag (PPP) [Time] 28.8 s Normal 23.0-32.4 [facility] Comment on above: Order Comment: Speci men Type: BLOOD SPECIMENOrdering Facility: [facility] Address: [address] [place] [address] Performed By: #### 1 4979-9 ####[facility] LABORATORYCLIA [id number] [address] [place] ALLIED HEALTHon 07-23-2021 ALLIED HEALTH Normal [facility] ALLIED HEALTH Normal [facility] ALLIED HEALTH Normal [facility] ARTERIAL BLOOD GASESon 07-23 Base excess Calc (Bld) [Moles/Vol] 4 mmol/L High 0-2 [facility] Comment on above: Order Comment: Speci men Type: ARTERIAL BLOOD SPECIMENOrdering Facility: [facility] Address: [address] [place] [address] Performed By: #### A LLBG ####[facility] LABORATORYCLIA [id number] [address] Body temperature 100.58 [degF] Normal [facility] Comment on above: Order Comment: Speci men Type: ARTERIAL BLOOD SPECIMENOrdering Facility: [facility] Address: [address] [place] [address] Performed By: #### A LLBG ####[facility] LABORATORYCLIA [id number] [place] [address] [place] CALCIUM IONIZED, PH CORRECTED 1.26 mmol/L Normal 1.08-1.30 [facility] Comment on above: Order Comment: Speci men Type: ARTERIAL BLOOD SPECIMENOrdering Facility: [facility] Address: [address] [place] [address] Performed By: #### A LLBG ####[facility] LABORATORYCLIA [id number] [place] [address] [place] Calcium.ionized (BldV) [Mass/Vol] 1.25 mmol/L Normal 1.08-1.30 [facility] Comment on above: Order Comment: Speci men Type: ARTERIAL BLOOD SPECIMENOrdering Facility: [facility] Address: [address] [place] [address] Performed By: #### A LLBG ####[facility] LABORATORYCLIA [id number] [address] [place] Carboxyhemoglobin (BldA) [Mass fraction] 1.2 % Normal 0.0-2.0 [facility] Comment on above: Order Comment: Speci men Type: ARTERIAL BLOOD SPECIMENOrdering Facility: [facility] Address: [address] [place] [address] Result Comment: Carb oxyhemoglobin Reference Range for Smokers: 2.0-8.0% Performed By: #### A LLBG ####[facility] LABORATORYCLIA [id number] [place] [address] [place] CO2 (Bld) [Partial pressure] 46 mm Hg Normal 36-46 [facility] Comment on above: Order Comment: Speci men Type: ARTERIAL BLOOD SPECIMENOrdering Facility: [facility] Address: [address] [address] Performed By: #### A LLBG ####[facility] LABORATORYCLIA [id number] [place] [address] [place] CO2 [Moles/Vol] 27 mmol/L Normal 22-28 [facility] Comment on above: Order Comment: Speci men Type: ARTERIAL BLOOD SPECIMENOrdering Facility: [facility] Address: [address] [place] [address] Performed By: #### A LLBG ####[facility] LABORATORYCLIA [id number] [address] CO2 adjusted to patient's actual temperature (Bld) [Partial pressure] 48 mmHg High 36-46 [facility] Comment on above: Order Comment: Speci men Type: ARTERIAL BLOOD SPECIMENOrdering Facility: [facility] Address: [address] [place] [address] Performed By: #### A LLBG ####[facility] LABORATORYCLIA [id number] [address] [place] Glucose [Mass/Vol] 134 mg/dL High 60-105 [facility] Comment on above: Order Comment: Speci men Type: ARTERIAL BLOOD SPECIMENOrdering Facility: [facility] Address: [address] [place] [address] Performed By: #### A LLBG ####[facility] LABORATORYCLIA [id number] [address] HCO3 (Bld) [Moles/Vol] 29 mmol/L High 22-26 [facility] Comment on above: Order Comment: Speci men Type: ARTERIAL BLOOD SPECIMENOrdering Facility: [facility] Address: [address] [place] [address] Performed By: #### A LLBG ####[facility] LABORATORYCLIA [id number] [address] [place] Hematocrit (Bld) [Volume fraction] 31.4 % Low 39.0-51.0 [facility] Comment on above: Order Comment: Speci men Type: ARTERIAL BLOOD SPECIMENOrdering Facility: [facility] Address: [address] [place] [address] Performed By: #### A LLBG ####[facility]ORATORYCLIA [id number] [address] [place] Hemoglobin (Bld) [Mass/Vol] 10.2 g/dL Low 13.0-17.0 [facility] Comment on above: Order Comment: Speci men Type: ARTERIAL BLOOD SPECIMENOrdering Facility: [facility] Address: [address] [address] Performed By: #### A LLBG ####[facility]ORATORYCLIA [id number] [address] Methemoglobin (Bld) [Mass fraction] % Normal 0.0-1.5 [facility] Comment on above: Order Comment: Speci men Type: ARTERIAL BLOOD SPECIMENOrdering Facility: [facility] Address: [address] [address] Performed By: #### A LLBG ####[facility]ORATORYCLIA [id number] [address] O2 THERAPY Ventilator Normal [facility] Comment on above: Order Comment: Speci men Type: ARTERIAL BLOOD SPECIMENOrdering Facility: [facility] Address: [address] [place] [address] Performed By: #### A LLBG ####[facility]ORATORYCLIA [id number] [address] Oxygen (Bld) [Partial pressure] 113 mm Hg High 85-95 [facility] Comment on above: Order Comment: Speci men Type: ARTERIAL BLOOD SPECIMENOrdering Facility: [facility] Address: [address] [place] [address] Performed By: #### A LLBG ####[facility]ORATORYCLIA [id number] [address] Oxygen adjusted to patient's actual temperature (Bld) [Partial pressure] 119 mmHg High 85-95 [facility] Comment on above: Order Comment: Speci men Type: ARTERIAL BLOOD SPECIMENOrdering Facility: [facility] Address: [address] [address] Performed By: #### A LLBG ####[facility]ORATORYCLIA [id number] [address] [place] OXYGEN SATURATION, ARTERIAL 98 % Normal 95-98 [facility] Comment on above: Order Comment: Speci men Type: ARTERIAL BLOOD SPECIMENOrdering Facility: [facility] Address: [address] [place] [address] Performed By: #### A LLBG ####[facility] LABORATORYCLIA [id number] [address] Oxyhemoglobin (BldA) [Mass fraction] 96 % Normal 95-98 [facility] Comment on above: Order Comment: Speci men Type: ARTERIAL BLOOD SPECIMENOrdering Facility: [facility] Address: [address] [place] [address] Performed By: #### A LLBG ####[facility] LABORATORYCLIA [id number] [address] [place] pH (Bld) 7.41 [pH] Normal 7.35-7.45 [facility] Comment on above: Order Comment: Speci men Type: ARTERIAL BLOOD SPECIMENOrdering Facility: [facility] Address: [address] [place] [address] Performed By: #### A LLBG ####[facility] LABORATORYCLIA [id number] [address] pH adjusted to patient's actual temperature (Bld) 7.40 Normal 7.35-7.45 [facility] Comment on above: Order Comment: Speci men Type: ARTERIAL BLOOD SPECIMENOrdering Facility: [facility] Address: [address] [place] [address] Performed By: #### A LLBG ####[facility] LABORATORYCLIA [id number] [address] [place] Potassium [Moles/Vol] 4.3 mmol/L Normal 3.5-5.0 [facility] Comment on above: Order Comment: Speci men Type: ARTERIAL BLOOD SPECIMENOrdering Facility: [facility] Address: [address] [place] [address] Performed By: #### A LLBG ####[facility] LABORATORYCLIA [id number] [address] [place] Sodium [Moles/Vol] 144 mmol/L Normal 136-144 [facility] Comment on above: Order Comment: Speci men Type: ARTERIAL BLOOD SPECIMENOrdering Facility: [facility] Address: [address] [place] [address] Performed By: #### A LLBG ####[facility] LABORATORYCLIA [id number] [address] OF [facility] Bacteria CSF Culton 07-24-19 22 Bacteria identified Cx Nom (CSF) Abnormal [facility] Comment on above: Performed By: #### 6 06-4 ####[facility] LABORATORYCLIA [id number] [address] [place] Basic metabolic 2000 panelon 07-23-2021 Anion gap [Moles/Vol] 12 mmol/L Normal 9-18 [facility] Comment on above: Order Comment: Speci men Type: BLOOD SPECIMENOrdering Facility: [facility] Address: [address] [place] [address] Performed By: #### 2 4321-2 ####[facility] LABORATORYCLIA [id number] [place] [address] [place] Calcium [Mass/Vol] 9.7 mg/dL Normal 8.5-10.2 [facility] Comment on above: Order Comment: Speci men Type: BLOOD SPECIMENOrdering Facility: [facility] Address: [address] [place] [address] Performed By: #### 2 4321-2 ####[facility] LABORATORYCLIA [id number] [place] [address] [place] Chloride [Moles/Vol] 105 mmol/L Normal 97-105 [facility] Comment on above: Order Comment: Speci men Type: BLOOD SPECIMENOrdering Facility: [facility] Address: [address] [place] [address] Performed By: #### 2 4321-2 ####[facility] LABORATORYCLIA [id number] [place] [address] [place] CO2 [Moles/Vol] 28 mmol/L Normal 22-30 [facility] Comment on above: Order Comment: Speci men Type: BLOOD SPECIMENOrdering Facility: [facility] Address: [address] [address] Performed By: #### 2 4321-2 ####[facility] LABORATORYCLIA [id number] [address] STATES OF [facility] Creatinine [Mass/Vol] 0.78 mg/dL Normal 0.73-1.22 [facility] Comment on above: Order Comment: Speci men Type: BLOOD SPECIMENOrdering Facility: [facility] Address: [address] [place] [address] Performed By: #### 2 4321-2 ####[facility]PITALCLIA [id number] [address] ESTIMATED GLOMERULAR FILTRATION RATE 97 mL/min/1.73m??? Normal >=60 [facility] Comment on above: Order Comment: Speci men Type: BLOOD SPECIMENOrdering Facility: [facility] Address: [address] [place] [address] Result Comment: Luzmaria mated Glomerular Filtration Rate [...] By: #### 2 4321-2 ####[facility] LABORATORYCLIA [id number] [address] [place] Glucose [Mass/Vol] 127 mg/dL High 74-99 [facility] Comment on above: Order Comment: Speci francia Type: BLOOD SPECIMENOrdering Facility: [facility] Address: [address] [address] Result Comment: The [place] Diabetes Association (ADA) provides guidance for cutoff [...] Standards of Medical Care in Diabetes 2016, [place] [employer]. Diabetes Care. 2016.39(Suppl 1). Performed By: #### 2 4321-2 ####[facility] LABORATORYCLIA [id number] [place] [address] [place] Potassium [Moles/Vol] 4.3 mmol/L Normal 3.7-5.1 [facility] Comment on above: Order Comment: Shira feldmna Type: BLOOD SPECIMENOrdering Facility: [facility] Address: [address] [place] [address] Performed By: #### 2 4321-2 ####[facility]ENDIA [id number] [place] [address] [place] Sodium [Moles/Vol] 145 mmol/L High 136-144 [facility] Comment on above: Order Comment: Shira feldman Type: BLOOD SPECIMENOrdering Facility: [facility] Address: [address] [place] [address] Performed By: #### 2 4321-2 ####[facility] BENDIA [id number] [place] [address] [place] Urea nitrogen [Mass/Vol] 37 mg/dL High 9-24 [facility] Comment on above: Order Comment: Shira feldman Type: BLOOD SPECIMENOrdering Facility: [facility] Address: [address] [place] [address] Performed By: #### 2 4321-2 ####[facility] LABORATORYCLIA [id number] [place] [address] [place] C diff Tox gens Stl Ql MEGAN+p robeon 07-23-2021 C. difficile toxin genes MEGAN+probe Ql (Stl) Negative Normal Negative for C. difficile toxin by PCR [facility] Comment on above: Order Comment: Speci men Type: STOOL SPECIMENOrdering Facility: [facility] Address: [address] [place] [address] Performed By: #### 5 4067-4 ####[facility] LABORATORYCLIA [id number] [address] [place] [facility] CBC W Auto Differential pane l (Bld)on 07-23-2021 Basophils (Bld) [#/Vol] 0.07 10*3/uL Normal <0.11 [facility] Comment on above: Order Comment: Speci men Type: BLOOD SPECIMENOrdering Facility: [facility] Address: [address] [place] [address] Performed By: #### 5 7021-8 ####[facility] LABORATORYCLIA [id number] [address] [place] Basophils/100 WBC (Bld) 0.5 % Normal [facility] Comment on above: Order Comment: Speci men Type: BLOOD SPECIMENOrdering Facility: [facility] Address: [address] [place] [address] Performed By: #### 5 7021-8 ####[facility] LABORATORYCLIA [id number] [address] Differential cell count method Nom (Bld) Auto Normal [facility] Comment on above: Order Comment: Speci men Type: BLOOD SPECIMENOrdering Facility: [facility] Address: [address] [place] [address] Performed By: #### 5 7021-8 ####[facility] LABORATORYCLIA [id number] [place] [address] [place] Eosinophils (Bld) [#/Vol] 10*3/uL Normal <0.46 [facility] Comment on above: Order Comment: Speci men Type: BLOOD SPECIMENOrdering Facility: [facility] Address: [address] [place] [address] Performed By: #### 5 7021-8 ####[facility]ORATORYCLIA [id number] [address] [place] Eosinophils/100 WBC (Bld) 0.2 % Normal [facility] Comment on above: Order Comment: Speci men Type: BLOOD SPECIMENOrdering Facility: [facility] Address: [address] [place] [address] Performed By: #### 5 7021-8 ####[facility] LABORATORYCLIA [id number] [address] Erythrocyte distribution width (RBC) [Ratio] 16.7 % High 11.5-15.0 [facility] Comment on above: Order Comment: Speci men Type: BLOOD SPECIMENOrdering Facility: [facility] Address: [address] [place] [address] Performed By: #### 5 7021-8 ####[facility] LABORATORYCLIA [id number] [address] Hematocrit (Bld) [Volume fraction] 32.8 % Low 39.0-51.0 [facility] Comment on above: Order Comment: Speci men Type: BLOOD SPECIMENOrdering Facility: [facility] Address: [address] [place] [address] Performed By: #### 5 7021-8 ####[facility] LABORATORYCLIA [id number] [address] [place] Hemoglobin (Bld) [Mass/Vol] 9.7 g/dL Low 13.0-17.0 [facility] Comment on above: Order Comment: Speci men Type: BLOOD SPECIMENOrdering Facility: [facility] Address: [address] [place] [address] Performed By: #### 5 7021-8 ####[facility]ORATORYCLIA [id number] [address] IMMATURE GRAN % 0.7 % Normal [facility] Comment on above: Order Comment: Speci men Type: BLOOD SPECIMENOrdering Facility: [facility] Address: [address] [address] Performed By: #### 5 7021-8 ####[facility] LABORATORYCLIA [id number] [address] IMMATURE GRAN ABS 0.09 k/uL Normal <0.10 [facility] Comment on above: Order Comment: Speci men Type: BLOOD SPECIMENOrdering Facility: [facility] Address: [address] [place] [address] Performed By: #### 5 7021-8 ####[facility] LABORATORYCLIA [id number] [address] Lymphocytes (Bld) [#/Vol] 1.94 10*3/uL Normal 1.00-4.00 [facility] Comment on above: Order Comment: Speci men Type: BLOOD SPECIMENOrdering Facility: [facility] Address: [address] [place] [address] Performed By: #### 5 7021-8 ####[facility] LABORATORYCLIA [id number] [address] Lymphocytes/100 WBC (Bld) 14.6 % Normal [facility] Comment on above: Order Comment: Speci men Type: BLOOD SPECIMENOrdering Facility: [facility] Address: [address] [place] [address] Performed By: #### 5 7021-8 ####[facility] LABORATORYCLIA [id number] [address] MCH (RBC) [Entitic mass] 27.2 pg Normal 26.0-34.0 [facility] Comment on above: Order Comment: Speci men Type: BLOOD SPECIMENOrdering Facility: [facility] Address: [address] [place] [address] Performed By: #### 5 7021-8 ####[facility] LABORATORYCLIA [id number] [address] MCHC (RBC) [Mass/Vol] 29.6 g/dL Low 30.5-36.0 [facility] Comment on above: Order Comment: Speci men Type: BLOOD SPECIMENOrdering Facility: [facility] Address: [address] [place] [address] Performed By: #### 5 7021-8 ####[facility] LABORATORYCLIA [id number] [address] [place] MCV (RBC) [Entitic vol] 92.1 fL Normal 80.0-100.0 [facility] Comment on above: Order Comment: Speci men Type: BLOOD SPECIMENOrdering Facility: [facility] Address: [address] [place] [address] Performed By: #### 5 7021-8 ####[facility] LABORATORYCLIA [id number] [address] [place] Monocytes (Bld) [#/Vol] 0.74 10*3/uL Normal <0.87 [facility] Comment on above: Order Comment: Speci men Type: BLOOD SPECIMENOrdering Facility: [facility] Address: [address] [place] [address] Performed By: #### 5 7021-8 ####[facility] LABORATORYCLIA [id number] [address] [place] Monocytes/100 WBC (Bld) 5.6 % Normal [facility] Comment on above: Order Comment: Speci men Type: BLOOD SPECIMENOrdering Facility: [facility] Address: [address] [place] [address] Performed By: #### 5 7021-8 ####[facility] LABORATORYCLIA [id number] [address] [place] Neutrophils (Bld) [#/Vol] 10.43 10*3/uL High 1.45-7.50 [facility] Comment on above: Order Comment: Speci men Type: BLOOD SPECIMENOrdering Facility: [facility] Address: [address] [place] [address] Performed By: #### 5 7021-8 ####[facility] LABORATORYCLIA [id number] [address] [place] Neutrophils/100 WBC (Bld) 78.4 % Normal [facility] Comment on above: Order Comment: Speci men Type: BLOOD SPECIMENOrdering Facility: [facility] Address: [address] [address] Performed By: #### 5 7021-8 ####[facility] LABORATORYCLIA [id number] [address] [place] Nucleated RBC (Bld) [#/Vol] 10*3/uL Normal <0.01 [facility] Comment on above: Order Comment: Speci men Type: BLOOD SPECIMENOrdering Facility: [facility] Address: [address] [place] [address] Performed By: #### 5 7021-8 ####[facility] LABORATORYCLIA [id number] [address] Nucleated RBC/100 WBC (Bld) [Ratio] 0.0 /100 WBC Normal [facility] Comment on above: Order Comment: Speci men Type: BLOOD SPECIMENOrdering Facility: [facility] Address: [address] [place] [address] Performed By: #### 5 7021-8 ####[facility] LABORATORYCLIA [id number] [address] [place] Platelet mean volume (Bld) [Entitic vol] 11.0 fL Normal 9.0-12.7 [facility] Comment on above: Order Comment: Speci men Type: BLOOD SPECIMENOrdering Facility: [facility] Address: [address] [address] Performed By: #### 5 7021-8 ####[facility] LABORATORYCLIA [id number] [address] [place] Platelets (Bld) [#/Vol] 381 10*3/uL Normal 150-400 [facility] Comment on above: Order Comment: Speci men Type: BLOOD SPECIMENOrdering Facility: [facility] Address: [address] [place], [place] [address] Performed By: #### 5 7021-8 ####[facility] LABORATORYCLIA [id number] [address] [place] RBC (Bld) [#/Vol] 3.56 10*6/uL Low 4.20-6.00 [facility] Comment on above: Order Comment: Speci men Type: BLOOD SPECIMENOrdering Facility: [facility] Address: [address] [place] [address] Performed By: #### 5 7021-8 ####[facility] LABORATORYCLIA [id number] [address] STATES OF [facility] WBC (Bld) [#/Vol] 13.29 10*3/uL High 3.70-11.00 [facility] Comment on above: Order Comment: Speci men Type: BLOOD SPECIMENOrdering Facility: [facility] Address: [address] [place] [address] Performed By: #### 5 7021-8 ####[facility] LABORATORYCLIA [id number] [address] OF [facility] CONSULT PROGon 07-23-2021 CONSULT PROG Normal [facility] CONSULT PROG Normal [facility] CSF MANUAL DIFFon 07-23-2021 DIF TTL, CSF 100 cells counted Normal [facility] Comment on above: Order Comment: Speci men Type: CEREBROSPINAL FLUIDOrdering Facility: [facility] Address: [address] [place] [address] Performed By: #### L [id number], [id number], 84567-6 ####[facility] LABORATORYCLIA [id number] [address] [place] LYMPH%, CSF 2 % Low 50-90 [facility] Comment on above: Order Comment: Speci men Type: CEREBROSPINAL FLUIDOrdering Facility: [facility] Address: [address] [place] [address] Performed By: #### L [id number], [id number], 24761-8 ####[facility] LABORATORYCLIA [id number] [address] [place] MONO%, CSF 9 % Low 10-50 [facility] Comment on above: Order Comment: Speci men Type: CEREBROSPINAL FLUIDOrdering Facility: [facility] Address: [address] [place] [address] Performed By: #### L [id number], [id number], 17170-4 ####[facility] LABORATORYCLIA [id number] [address] [place] NEUT%, CSF 89 % High 0-3 [facility] Comment on above: Order Comment: Speci men Type: CEREBROSPINAL FLUIDOrdering Facility: [facility] Address: [address] [place] [address] Performed By: #### L [id number], [id number], 88289-9 ####[facility] LABORATORYCLIA [id number] [address] CSF PATHOLOGIST INTERP (LAB REFLEX ORDER-NO BILL)on 07-23-2021 CSF STAFF REVIEW Negative for maligna nt cells. Numerous bacterial organisms present, cocci in pairs and chains. Recommend correlation with CSF culture results. Normal [facility] Comment on above: Order Comment: Speci men Type: CEREBROSPINAL FLUIDOrdering Facility: [facility] Address: [address] [place] [address] Performed By: #### L [id number], NCI5570, 39667-7 ####[facility] LABORATORYCLIA [id number] [address] Pathologist name Reviewed by Amador Stevens MD [facility] Comment on above: Order Comment: Speci men Type: CEREBROSPINAL FLUIDOrdering Facility: [facility] Address: [address] [place] [address] Performed By: #### L [id number], [id number], 81419-4 ####[facility] LABORATORYCLIA [id number] [address] [place] CT BRAIN WO IVCONon 03-19-[address] BRAIN WO IVCON Normal [facility] Cell count panel (CSF)on Clarity (CSF) Clear Normal Clear [facility] Comment on above: Order Comment: Speci men Type: CEREBROSPINAL FLUIDOrdering Facility: [facility] Address: [address] [place] [address] Performed By: #### L [id number], [id number], 70005-5 ####[facility]ATORYCLIA [id number] [address] Clarity (Unsp spec) Not Indicated Normal Clear [facility] Comment on above: Order Comment: Speci men Type: CEREBROSPINAL FLUIDOrdering Facility: [facility] Address: [address] [place] [address] Performed By: #### L [id number], [id number], 20253-7 ####[facility] LABORATORYCLIA [id number] [address] Color (CSF) Colorless Normal Colorless [facility] Comment on above: Order Comment: Speci men Type: CEREBROSPINAL FLUIDOrdering Facility: [facility] Address: [address] [place] [address] Performed By: #### L [id number], [id number], 42524-7 ####[facility]ATORYCLIA [id number] [address] Color (Spun CSF) Not Indicated Normal Colorless [facility] Comment on above: Order Comment: Speci men Type: CEREBROSPINAL FLUIDOrdering Facility: [facility] Address: [address] [place] [address] Performed By: #### L [id number], TQA1615, 94771-6 ####[facility]ATORYCLIA [id number] [address] CSF TUBE NUMBER [employer] Normal [facility] Comment on above: Order Comment: Speci men Type: CEREBROSPINAL FLUIDOrdering Facility: [facility] Address: [address] [place] [address] Performed By: #### L [id number], [id number], 55368-9 ####[facility] LABORATORYCLIA [id number] [address] RBC Manual cnt (CSF) [#/Vol] 7 cells/uL High 0-5 [facility] Comment on above: Order Comment: Speci men Type: CEREBROSPINAL FLUIDOrdering Facility: [facility] Address: [address] [place] [address] Performed By: #### L [id number], [id number], 46977-6 ####[facility] LABORATORYCLIA [id number] [address] WBC Manual cnt (CSF) [#/Vol] 193 cells/uL High 0-5 [facility] Comment on above: Order Comment: Speci men Type: CEREBROSPINAL FLUIDOrdering Facility: [facility] Address: [address] [place] [address] Performed By: #### L [id number], [id number], 20786-6 ####[facility]ITALCLIA [id number] [address] Glucose CSF-mCncon 2 Glucose (CSF) [Mass/Vol] 81 mg/dL High 40-70 [facility] Comment on above: Order Comment: Speci men Type: CEREBROSPINAL FLUIDOrdering Facility: [facility] Address: [address] [place] [address] Result Comment: Lumb ar CSF glucose values of healthy patients are approximately 60% of the plasma values and must always be compared with a concurrently measured plasma value for adequate clinical interpretation.References: 1. Glucose HK (GLUC3) [package insert V 12.0 [place]]. [employer], [place], [place]. September 2015. 2. Teresa H., He, H. (2015). Chapter 7: Glucose and Lactate. Marianela Rothman.(eds.), Cerebrospinal Fluid in Clinical Neurology. [place]: [employer]. Performed By: #### 2 342-4, 2880-3 ####[facility] LABORATORYCLIA [id number] [address] NURSING PROGon 07-23-2021 NURSING PROG Normal [facility] NURSING PROG Normal [facility] Prot CSF-mCncon 07-23-2021 Protein (CSF) [Mass/Vol] 68 mg/dL High 15-45 [facility] Comment on above: Order Comment: Speci men Type: CEREBROSPINAL FLUIDOrdering Facility: [facility] Address: [address] [place] [address] Performed By: #### 2 342-4, 2880-3 ####[facility] LABORATORYCLIA [id number] [address] Urinalysis complete panel (U )on 07-23-2021 Bilirubin Ql (U) Negative Normal Negative [facility] Comment on above: Order Comment: Speci men Type: URINE SPECIMENOrdering Facility: [facility] Address: [address] [place] [address] Performed By: #### 2 4356-8 ####[facility] LABORATORYCLIA [id number] [address] [place] Clarity (Unsp spec) Clear Normal Clear [facility] Comment on above: Order Comment: Speci men Type: URINE SPECIMENOrdering Facility: [facility] Address: [address] [place] [address] Performed By: #### 2 4356-8 ####[facility] LABORATORYCLIA [id number] [address] Color (U) Light Yellow Normal yellow [facility] Comment on above: Order Comment: Speci men Type: URINE SPECIMENOrdering Facility: [facility] Address: [address] [place] [address] Performed By: #### 2 4356-8 ####[facility] LABORATORYCLIA [id number] [address] Glucose Test strip (U) [Mass/Vol] Negative Normal Negative [facility] Comment on above: Order Comment: Speci men Type: URINE SPECIMENOrdering Facility: [facility] Address: [address] [place], [place] [address] Performed By: #### 2 4356-8 ####[facility] LABORATORYCLIA [id number] [address] Hemoglobin Ql (U) Negative Normal Negative [facility] Comment on above: Order Comment: Speci men Type: URINE SPECIMENOrdering Facility: [facility] Address: [address] [address] Performed By: #### 2 4356-8 ####[facility] LABORATORYCLIA [id number] [address] STATES OF [facility] Ketones Ql (U) Negative Normal Negative [facility] Comment on above: Order Comment: Speci men Type: URINE SPECIMENOrdering Facility: [facility] Address: [facility] [place] [address] Performed By: #### 2 4356-8 ####[facility] LABORATORYCLIA [id number] [address] Leukocyte esterase Test strip Ql (U) Negative Normal Negative [facility] Comment on above: Order Comment: Speci men Type: URINE SPECIMENOrdering Facility: [facility] Address: [address] [address] Performed By: #### 2 4356-8 ####[facility] LABORATORYCLIA [id number] [address] Nitrite Ql (U) Negative Normal Negative [facility] Comment on above: Order Comment: Speci men Type: URINE SPECIMENOrdering Facility: [facility] Address: [address] [address] Performed By: #### 2 4356-8 ####[facility] LABORATORYCLIA [id number] [address] pH (U) 6.0 [pH] Normal 5.0-8.0 [facility] Comment on above: Order Comment: Speci men Type: URINE SPECIMENOrdering Facility: [facility] Address: [address] [address] Performed By: #### 2 4356-8 ####[facility] LABORATORYCLIA [id number] [address] Protein (U) [Mass/Vol] 1+ Abnormal Negative [facility] Comment on above: Order Comment: Speci men Type: URINE SPECIMENOrdering Facility: [facility] Address: [address] [place] [address] Performed By: #### 2 4356-8 ####[facility] LABORATORYCLIA [id number] [address] RBC LM.HPF (Urine sed) [#/Area] 0-3 /HPF Normal 0-3 /HPF [facility] Comment on above: Order Comment: Speci men Type: URINE SPECIMENOrdering Facility: [facility] Address: [address] [place] [address] Performed By: #### 2 4356-8 ####[facility] LABORATORYCLIA [id number] [address] Specific gravity (U) [Rel density] 1.018 Normal 1.005-1.030 [facility] Comment on above: Order Comment: Speci men Type: URINE SPECIMENOrdering Facility: [facility] Address: [address] [place] [address] Performed By: #### 2 4356-8 ####[facility] LABORATORYCLIA [id number] [address] Urobilinogen Ql (U) Normal Normal Negative [facility] Comment on above: Order Comment: Speci men Type: URINE SPECIMENOrdering Facility: [facility] Address: [address] [place] [address] Performed By: #### 2 4356-8 ####[facility] LABORATORYCLIA [id number] [address] WBC LM.HPF (Urine sed) [#/Area] 0-5 /HPF Normal 0-5 /HPF [facility] Comment on above: Order Comment: Speci men Type: URINE SPECIMENOrdering Facility: [facility] Address: [address] [place] [address] Performed By: #### 2 4356-8 ####[facility] LABORATORYCLIA [id number] [address] Vancomycin random [Mass/Vol] on 07-23-2021 Vancomycin [Mass/Vol] 12.9 ug/mL Normal 10.0-20.0 [facility] Comment on above: Order Comment: Speci men Type: BLOOD SPECIMENOrdering Facility: [facility] Address: [address] [place] [address] Result Comment: Refe rence ranges and high/low indicator flags are provided as general guidelines only. The treating physician must determine appropriate target levels/dosing based on the specific clinical situation. Performed By: #### 4 091-5 ####[facility] LABORATORYCLIA [id number] [address] STATES OF [facility] XR CHEST 1V FRONTALon 2021 XR CHEST 1V FRONTAL Normal [facility] XR CHEST 1V FRONTAL Normal [facility] aPTT PPPon 07-23-2021 aPTT Coag (PPP) [Time] 32.3 s Normal 23.0-32.4 [facility] Comment on above: Order Comment: Speci men Type: BLOOD SPECIMENOrdering Facility: [facility] Address: [address] [place] [address] Performed By: #### 1 4979-9 ####[facility] LABORATORYCLIA [id number] [address] STATES OF [facility] aPTT Coag (PPP) [Time] 57.9 s High 23.0-32.4 [facility] Comment on above: Order Comment: Speci men Type: BLOOD SPECIMENOrdering Facility: [facility] Address: [address] [place] [address] Performed By: #### 1 4979-9 ####[facility] LABORATORYCLIA [id number] [address] aPTT Coag (PPP) [Time] 46.3 s High 23.0-32.4 [facility] Comment on above: Order Comment: Speci men Type: BLOOD SPECIMENOrdering Facility: [facility] Address: [address] [place] [address] Performed By: #### 1 4979-9 ####[facility] LABORATORYCLIA [id number] [place] [address] [place] Basic metabolic 2000 panelon 07-22-2021 Anion gap [Moles/Vol] 8 mmol/L Low -18 [facility] Comment on above: Order Comment: Speci men Type: BLOOD SPECIMENOrdering Facility: [facility] Address: [address] [place] [address] Performed By: #### 2 4321-2 ####[facility] LABORATORYCLIA [id number] [place] [address] [place] Calcium [Mass/Vol] 9.5 mg/dL Normal 8.5-10.2 [facility] Comment on above: Order Comment: Speci men Type: BLOOD SPECIMENOrdering Facility: [facility] Address: [address] [place] [address] Performed By: #### 2 4321-2 ####[facility] LABORATORYCLIA [id number] [address] [place] Chloride [Moles/Vol] 105 mmol/L Normal 97-105 [facility] Comment on above: Order Comment: Speci men Type: BLOOD SPECIMENOrdering Facility: [facility] Address: [address] [place] [address] Performed By: #### 2 4321-2 ####[facility] LABORATORYCLIA [id number] [place] [address] [place] CO2 [Moles/Vol] 32 mmol/L High 22-30 [facility] Comment on above: Order Comment: Speci men Type: BLOOD SPECIMENOrdering Facility: [facility] Address: [address] [place] [address] Performed By: #### 2 4321-2 ####[facility] LABORATORYCLIA [id number] [address] STATES OF [facility] Creatinine [Mass/Vol] 0.75 mg/dL Normal 0.73-1.22 [facility] Comment on above: Order Comment: Johncara feldman Type: BLOOD SPECIMENOrdering Facility: [facility] Address: [address] [place] [address] Performed By: #### 2 4321-2 ####[facility] LABORATORYCLIA [id number] [address] ESTIMATED GLOMERULAR FILTRATION RATE 98 mL/min/1.73m??? Normal >=60 [facility] Comment on above: Order Comment: Shira feldman Type: BLOOD SPECIMENOrdering Facility: [facility] Address: [address] [place] [address] Result Comment: Luzmaria mated Glomerular Filtration Rate [...] actual GFR. Performed By: #### 2 4321-2 ####[facility] BENDIA [id number] [address] Glucose [Mass/Vol] 128 mg/dL High 74-99 [facility] Comment on above: Order Comment: Shira francia Type: BLOOD SPECIMENOrdering Facility: [facility] Address: [address] [place] [address] Result Comment: The [place] [employer] (ADA) provides guidance for cutoff [...] Standards of Medical Care in Diabetes 2016, [place] [employer]. Diabetes Care. 2016.39(Suppl 1). Performed By: #### 2 4321-2 ####[facility] LABORATORYCLIA [id number] [address] OF [facility] Potassium [Moles/Vol] 3.7 mmol/L Normal 3.7-5.1 [facility] Comment on above: Order Comment: Speci men Type: BLOOD SPECIMENOrdering Facility: [facility] Address: [address] [place] [address] Performed By: #### 2 4321-2 ####[facility] LABORATORYCLIA [id number] [address] Sodium [Moles/Vol] 145 mmol/L High 136-144 [facility] Comment on above: Order Comment: Speci men Type: BLOOD SPECIMENOrdering Facility: [facility] Address: [address] [place] [address] Performed By: #### 2 4321-2 ####[facility] LABORATORYCLIA [id number] [address] Urea nitrogen [Mass/Vol] 39 mg/dL High 9-24 [facility] Comment on above: Order Comment: Speci men Type: BLOOD SPECIMENOrdering Facility: [facility] Address: [address] [place] [address] Performed By: #### 2 4321-2 ####[facility] LABORATORYCLIA [id number] [address] [place] CASE MANAGEMon 07-22-2021 CASE MANAGEM Normal [facility] CBC W Auto Differential pane l (Bld)on 07-22-2021 Basophils (Bld) [#/Vol] 0.06 10*3/uL Normal <0.11 [facility] Comment on above: Order Comment: Speci men Type: BLOOD SPECIMENOrdering Facility: [facility] Address: [address] [place] [address] Performed By: #### 5 7021-8 ####[facility]ORATORYCLIA [id number] [address] STATES [facility] Basophils/100 WBC (Bld) 0.5 % Normal [facility] Comment on above: Order Comment: Speci men Type: BLOOD SPECIMENOrdering Facility: [facility] Address: [address] [place] [address] Performed By: #### 5 7021-8 ####[facility]ORATORYCLIA [id number] [address] OF [place] Differential cell count method Nom (Bld) Auto Normal [facility] Comment on above: Order Comment: Speci men Type: BLOOD SPECIMENOrdering Facility: [facility] Address: [address] [place] [address] Performed By: #### 5 7021-8 ####[facility]ORATORYCLIA [id number] [address] [place] Eosinophils (Bld) [#/Vol] 0.44 10*3/uL Normal <0.46 [facility] Comment on above: Order Comment: Speci men Type: BLOOD SPECIMENOrdering Facility: [facility] Address: [address] [place] [address] Performed By: #### 5 7021-8 ####[facility]ORATORYCLIA [id number] [address] Eosinophils/100 WBC (Bld) 3.9 % Normal [facility] Comment on above: Order Comment: Speci men Type: BLOOD SPECIMENOrdering Facility: [facility] Address: [address] [place] [address] Performed By: #### 5 7021-8 ####[facility]ORATORYCLIA [id number] [address] [place] Erythrocyte distribution width (RBC) [Ratio] 17.0 % High 11.5-15.0 [facility] Comment on above: Order Comment: Speci men Type: BLOOD SPECIMENOrdering Facility: [facility] Address: [address] [address] Performed By: #### 5 7021-8 ####[facility] LABORATORYCLIA [id number] [address] Hematocrit (Bld) [Volume fraction] 32.0 % Low 39.0-51.0 [facility] Comment on above: Order Comment: Speci men Type: BLOOD SPECIMENOrdering Facility: [facility] Address: [address] [place] [address] Performed By: #### 5 7021-8 ####[facility] LABORATORYCLIA [id number] [address] Hemoglobin (Bld) [Mass/Vol] 9.3 g/dL Low 13.0-17.0 [facility] Comment on above: Order Comment: Speci men Type: BLOOD SPECIMENOrdering Facility: [facility] Address: [address] [place] [address] Performed By: #### 5 7021-8 ####[facility] LABORATORYCLIA [id number] [address] IMMATURE GRAN % 0.5 % Normal [facility] Comment on above: Order Comment: Speci men Type: BLOOD SPECIMENOrdering Facility: [facility] Address: [address] [place] [address] Performed By: #### 5 7021-8 ####[facility] LABORATORYCLIA [id number] [address] IMMATURE GRAN ABS 0.06 k/uL Normal <0.10 [facility] Comment on above: Order Comment: Speci men Type: BLOOD SPECIMENOrdering Facility: [facility] Address: [address] [place] [address] Performed By: #### 5 7021-8 ####[facility] LABORATORYCLIA [id number] [address] OF [facility] Lymphocytes (Bld) [#/Vol] 1.83 10*3/uL Normal 1.00-4.00 [facility] Comment on above: Order Comment: Speci men Type: BLOOD SPECIMENOrdering Facility: [facility] Address: [address] [place] [address] Performed By: #### 5 7021-8 ####[facility] LABORATORYCLIA [id number] [address] Lymphocytes/100 WBC (Bld) 16.1 % Normal [facility] Comment on above: Order Comment: Speci men Type: BLOOD SPECIMENOrdering Facility: [facility] Address: [address] [place] [address] Performed By: #### 5 7021-8 ####[facility] LABORATORYCLIA [id number] [address] MCH (RBC) [Entitic mass] 27.0 pg Normal 26.0-34.0 [facility] Comment on above: Order Comment: Speci men Type: BLOOD SPECIMENOrdering Facility: [facility] Address: [address] [place] [address] Performed By: #### 5 7021-8 ####[facility] LABORATORYCLIA [id number] [address] STATES OF [facility] MCHC (RBC) [Mass/Vol] 29.1 g/dL Low 30.5-36.0 [facility] Comment on above: Order Comment: Speci men Type: BLOOD SPECIMENOrdering Facility: [facility] Address: [address] [place] [address] Performed By: #### 5 7021-8 ####[facility] LABORATORYCLIA [id number] [address] STATES OF [facility] MCV (RBC) [Entitic vol] 92.8 fL Normal 80.0-100.0 [facility] Comment on above: Order Comment: Speci men Type: BLOOD SPECIMENOrdering Facility: [facility] Address: [address] [place] [address] Performed By: #### 5 7021-8 ####[facility] LABORATORYCLIA [id number] [address] [place] Monocytes (Bld) [#/Vol] 0.87 10*3/uL High <0.87 [facility] Comment on above: Order Comment: Speci men Type: BLOOD SPECIMENOrdering Facility: [facility] Address: [address] [place] [address] Performed By: #### 5 7021-8 ####[facility] LABORATORYCLIA [id number] [address] [place] Monocytes/100 WBC (Bld) 7.6 % Normal [facility] Comment on above: Order Comment: Speci men Type: BLOOD SPECIMENOrdering Facility: [facility] Address: [address] [place] [address] Performed By: #### 5 7021-8 ####[facility] LABORATORYCLIA [id number] [address] [place] Neutrophils (Bld) [#/Vol] 8.12 10*3/uL High 1.45-7.50 [facility] Comment on above: Order Comment: Speci men Type: BLOOD SPECIMENOrdering Facility: [facility] Address: [address] [place] [address] Performed By: #### 5 7021-8 ####[facility] LABORATORYCLIA [id number] [address] [place] Neutrophils/100 WBC (Bld) 71.4 % Normal [facility] Comment on above: Order Comment: Speci men Type: BLOOD SPECIMENOrdering Facility: [facility] Address: [address] [place] [address] Performed By: #### 5 7021-8 ####[facility] LABORATORYCLIA [id number] [address] [place] Nucleated RBC (Bld) [#/Vol] 10*3/uL Normal <0.01 [facility] Comment on above: Order Comment: Speci men Type: BLOOD SPECIMENOrdering Facility: [facility] Address: [address] [place] [address] Performed By: #### 5 7021-8 ####[facility] LABORATORYCLIA [id number] [address] [place] Nucleated RBC/100 WBC (Bld) [Ratio] 0.0 /100 WBC Normal [facility] Comment on above: Order Comment: Speci men Type: BLOOD SPECIMENOrdering Facility: [facility] Address: [address] [place] [address] Performed By: #### 5 7021-8 ####[facility] LABORATORYCLIA [id number] [address] [place] Platelet mean volume (Bld) [Entitic vol] 10.8 fL Normal 9.0-12.7 [facility] Comment on above: Order Comment: Speci men Type: BLOOD SPECIMENOrdering Facility: [facility] Address: [address] [place] [address] Performed By: #### 5 7021-8 ####[facility] LABORATORYCLIA [id number] [address] [place] Platelets (Bld) [#/Vol] 362 10*3/uL Normal 150-400 [facility] Comment on above: Order Comment: Speci men Type: BLOOD SPECIMENOrdering Facility: [facility] Address: [address] [place] [address] Performed By: #### 5 7021-8 ####[facility] LABORATORYCLIA [id number] [address] [place] RBC (Bld) [#/Vol] 3.45 10*6/uL Low 4.20-6.00 [facility] Comment on above: Order Comment: Speci men Type: BLOOD SPECIMENOrdering Facility: [facility] Address: [address] [place] [address] Performed By: #### 5 7021-8 ####[facility] LABORATORYCLIA [id number] [address] [place] WBC (Bld) [#/Vol] 11.38 10*3/uL High 3.70-11.00 [facility] Comment on above: Order Comment: Speci men Type: BLOOD SPECIMENOrdering Facility: [facility] Address: [address] [place] [address] Performed By: #### 5 7021-8 ####[facility] LABORATORYCLIA [id number] [address] [place] Magnesium SerPl-mCncon 07-22 Magnesium [Mass/Vol] 2.3 mg/dL Normal 1.7-2.3 [facility] Comment on above: Order Comment: Speci men Type: BLOOD SPECIMENOrdering Facility: [facility] Address: [address] [place] [address] Performed By: #### 1 9123-9, 2777-1, 37168-4 ####[facility] LABORATORYCLIA [id number] [address] [place] NT-proBNP SerPl-ncon 07-22 Natriuretic peptide.B prohormone N-Terminal [Mass/Vol] 328 pg/mL High <125 [facility] Comment on above: Order Comment: Speci men Type: BLOOD SPECIMENOrdering Facility: [facility] Address: [address] [place] [address] Performed By: #### 1 9123-9, 2777-1, 02346-8 ####[facility] LABORATORYCLIA [id number] [address] [place] NURSING PROGon 07-22-2021 NURSING PROG Normal [facility] NUTRITIONon 07-22-2021 NUTRITION Normal [facility] Phosphate SerPl-mCncon 07-22 Phosphate [Mass/Vol] 3.5 mg/dL Normal 2.7-4.8 [facility] Comment on above: Order Comment: Speci men Type: BLOOD SPECIMENOrdering Facility: [facility] Address: [address] [place] [address] Performed By: #### 1 9123-9, 2777-1, 74698-8 ####[facility] LABORATORYCLIA [id number] [address] [place] THERAPY NTon 07-22-2021 THERAPY NT Normal [facility] THERAPY NT Normal [facility] aPTT PPPon 07-22-2021 aPTT Coag (PPP) [Time] 50.1 s High 23.0-32.4 [facility] Comment on above: Order Comment: Speci men Type: BLOOD SPECIMENOrdering Facility: [facility] Address: [address] [place] [address] Performed By: #### 1 4979-9 ####[facility] LABORATORYCLIA [id number] [address] STATES OF [facility] ALLIED HEALTHon 07-21-2021 ALLIED HEALTH Normal [facility] Bacteria Spec Resp Culton Bacteria identified Respiratory culture Nom (Unsp spec) Abnormal [facility] Comment on above: Performed By: #### 3 2355-0 ####[facility] LABORATORYCLIA [id number] [place] [address] [place] Basic metabolic 2000 panelon 07-21-2021 Anion gap [Moles/Vol] 9 mmol/L Normal 9-18 [facility] Comment on above: Order Comment: Speci men Type: BLOOD SPECIMENOrdering Facility: [facility] Address: [address] [place] [address] Performed By: #### 1 9123-9, 2777-1, 62615-5 ####[facility] LABORATORYCLIA [id number] [address] [place] Calcium [Mass/Vol] 9.9 mg/dL Normal 8.5-10.2 [facility] Comment on above: Order Comment: Speci men Type: BLOOD SPECIMENOrdering Facility: [facility] Address: [address] [place] [address] Performed By: #### 1 9123-9, 2777-1, 26580-6 ####[facility] LABORATORYCLIA [id number] [place] [address] [place] Chloride [Moles/Vol] 103 mmol/L Normal 97-105 [facility] Comment on above: Order Comment: Speci men Type: BLOOD SPECIMENOrdering Facility: [facility] Address: [address] [place] [address] Performed By: #### 1 9123-9, 2777, 67659-2 ####[facility] LABORATORYCLIA [id number] [address] [place] CO2 [Moles/Vol] 33 mmol/L High 22-30 [facility] Comment on above: Order Comment: Speci men Type: BLOOD SPECIMENOrdering Facility: [facility] Address: [address] [place] [address] Performed By: #### 1 9123-9, 27711-04, 47546-7 ####[facility] LABORATORYCLIA [id number] [address] STATES OF [facility] Creatinine [Mass/Vol] 0.80 mg/dL Normal 0.73-1.22 [facility] Comment on above: Order Comment: Speci men Type: BLOOD SPECIMENOrdering Facility: [facility] Address: [address] [place] [address] Performed By: #### 1 9123-9, 27711-04, 29468-8 ####[facility] LABORATORYCLIA [id number] [address] ESTIMATED GLOMERULAR FILTRATION RATE 96 mL/min/1.73m??? Normal >=60 [facility] Comment on above: Order Comment: Speci men Type: BLOOD SPECIMENOrdering Facility: [facility] Address: [address] [place] [address] Result Comment: Luzmaria mated Glomerular Filtration Rate [...] GFR. Performed By: #### 1 9123-9, 2777-, 24024-3 ####[facility] LABORATORYCLIA [id number] [place] [address] [place] Glucose [Mass/Vol] 148 mg/dL High 74-99 [facility] Comment on above: Order Comment: Speci men Type: BLOOD SPECIMENOrdering Facility: [facility] Address: [address] [place] [address] Result Comment: The [place] [employer] (ADA) provides guidance for cutoff [...] Standards of Medical Care in Diabetes 2016, [employer]. Diabetes Care. 2016.39(Suppl 1). Performed By: #### 1 9123-9, 2777-, 28077-5 ####[facility] LABORATORYCLIA [id number] [place] [address] [place] Potassium [Moles/Vol] 4.1 mmol/L Normal 3.7-5.1 [facility] Comment on above: Order Comment: Speci men Type: BLOOD SPECIMENOrdering Facility: [facility] Address: [address] [place] [address] Performed By: #### 1 9123-9, 2777-1, 19627-2 ####[facility] LABORATORYCLIA [id number] [place] [address] [place] Sodium [Moles/Vol] 145 mmol/L High 136-144 [facility] Comment on above: Order Comment: Speci men Type: BLOOD SPECIMENOrdering Facility: [facility] Address: [address] [place] [address] Performed By: #### 1 9123-9, 2777-1, 11560-8 ####[facility] LABORATORYCLIA [id number] [address] STATES [facility] Urea nitrogen [Mass/Vol] 40 mg/dL High 9-24 [facility] Comment on above: Order Comment: Speci men Type: BLOOD SPECIMENOrdering Facility: [facility] Address: [address] [place] [address] Performed By: #### 1 9123-9, 27711-04, 45306-7 ####[facility] LABORATORYCLIA [id number] [address] [place] CBC W Auto Differential pane l (Bld)on 07-21-2021 Basophils (Bld) [#/Vol] 0.06 10*3/uL Normal <0.11 [facility] Comment on above: Order Comment: Speci men Type: BLOOD SPECIMENOrdering Facility: [facility] Address: [address] [place] [address] Performed By: #### 5 7021-8 ####[facility] LABORATORYCLIA [id number] [address] [place] Basophils/100 WBC (Bld) 0.4 % Normal [facility] Comment on above: Order Comment: Speci men Type: BLOOD SPECIMENOrdering Facility: [facility] Address: [address] [place] [address] Performed By: #### 5 7021-8 ####[facility] LABORATORYCLIA [id number] [address] Differential cell count method Nom (Bld) Auto Normal [facility] Comment on above: Order Comment: Speci men Type: BLOOD SPECIMENOrdering Facility: [facility] Address: [address] [place] [address] Performed By: #### 5 7021-8 ####[facility] LABORATORYCLIA [id number] [place] [address] [place] Eosinophils (Bld) [#/Vol] 0.04 10*3/uL Normal <0.46 [facility] Comment on above: Order Comment: Speci men Type: BLOOD SPECIMENOrdering Facility: [facility] Address: [address] [place] [address] Performed By: #### 5 7021-8 ####[facility] LABORATORYCLIA [id number] [address] [place] Eosinophils/100 WBC (Bld) 0.3 % Normal [facility] Comment on above: Order Comment: Speci men Type: BLOOD SPECIMENOrdering Facility: [facility] Address: [address] [place] [address] Performed By: #### 5 7021-8 ####[facility] LABORATORYCLIA [id number] [address] [place] Erythrocyte distribution width (RBC) [Ratio] 17.0 % High 11.5-15.0 [facility] Comment on above: Order Comment: Speci men Type: BLOOD SPECIMENOrdering Facility: [facility] Address: [address] [place] [address] Performed By: #### 5 7021-8 ####[facility] LABORATORYCLIA [id number] [address] [place] Hematocrit (Bld) [Volume fraction] 33.1 % Low 39.0-51.0 [facility] Comment on above: Order Comment: Speci men Type: BLOOD SPECIMENOrdering Facility: [facility] Address: [address] [place] [address] Performed By: #### 5 7021-8 ####[facility] LABORATORYCLIA [id number] [address] [place] Hemoglobin (Bld) [Mass/Vol] 9.7 g/dL Low 13.0-17.0 [facility] Comment on above: Order Comment: Speci men Type: BLOOD SPECIMENOrdering Facility: [facility] Address: [address] [place] [address] Performed By: #### 5 7021-8 ####[facility] LABORATORYCLIA [id number] [address] IMMATURE GRAN % 0.5 % Normal [facility] Comment on above: Order Comment: Speci men Type: BLOOD SPECIMENOrdering Facility: [facility] Address: [address] [place] [address] Performed By: #### 5 7021-8 ####[facility] LABORATORYCLIA [id number] [address] IMMATURE GRAN ABS 0.07 k/uL Normal <0.10 [facility] Comment on above: Order Comment: Speci men Type: BLOOD SPECIMENOrdering Facility: [facility] Address: [address] [place] [address] Performed By: #### 5 7021-8 ####[facility] LABORATORYCLIA [id number] [address] Lymphocytes (Bld) [#/Vol] 1.99 10*3/uL Normal 1.00-4.00 [facility] Comment on above: Order Comment: Speci men Type: BLOOD SPECIMENOrdering Facility: [facility] Address: [address] [place] [address] Performed By: #### 5 7021-8 ####[facility] LABORATORYCLIA [id number] [address] Lymphocytes/100 WBC (Bld) 13.4 % Normal [facility] Comment on above: Order Comment: Speci men Type: BLOOD SPECIMENOrdering Facility: [facility] Address: [address] [place] [address] Performed By: #### 5 7021-8 ####[facility] LABORATORYCLIA [id number] [address] STATES [facility] MCH (RBC) [Entitic mass] 27.2 pg Normal 26.0-34.0 [facility] Comment on above: Order Comment: Speci men Type: BLOOD SPECIMENOrdering Facility: [facility] Address: [address] [place] [address] Performed By: #### 5 7021-8 ####[facility] LABORATORYCLIA [id number] [address] [place] MCHC (RBC) [Mass/Vol] 29.3 g/dL Low 30.5-36.0 [facility] Comment on above: Order Comment: Speci men Type: BLOOD SPECIMENOrdering Facility: [facility] Address: [address] [place] [address] Performed By: #### 5 7021-8 ####[facility] LABORATORYCLIA [id number] [address] [place] MCV (RBC) [Entitic vol] 92.7 fL Normal 80.0-100.0 [facility] Comment on above: Order Comment: Speci men Type: BLOOD SPECIMENOrdering Facility: [facility] Address: [address] [place] [address] Performed By: #### 5 7021-8 ####[facility] LABORATORYCLIA [id number] [address] [place] Monocytes (Bld) [#/Vol] 1.10 10*3/uL High <0.87 [facility] Comment on above: Order Comment: Speci men Type: BLOOD SPECIMENOrdering Facility: [facility] Address: [address] [place] [address] Performed By: #### 5 7021-8 ####[facility] LABORATORYCLIA [id number] [address] OF [facility] Monocytes/100 WBC (Bld) 7.4 % Normal [facility] Comment on above: Order Comment: Speci men Type: BLOOD SPECIMENOrdering Facility: [facility] Address: [address] [place] [address] Performed By: #### 5 7021-8 ####[facility] LABORATORYCLIA [id number] [address] [place] Neutrophils (Bld) [#/Vol] 11.61 10*3/uL High 1.45-7.50 [facility] Comment on above: Order Comment: Speci men Type: BLOOD SPECIMENOrdering Facility: [facility] Address: [address] [place] [address] Performed By: #### 5 7021-8 ####[facility]ORATORYCLIA [id number] [address] Neutrophils/100 WBC (Bld) 78.0 % Normal [facility] Comment on above: Order Comment: Speci men Type: BLOOD SPECIMENOrdering Facility: [facility] Address: [address] [place] [address] Performed By: #### 5 7021-8 ####[facility] LABORATORYCLIA [id number] [address] [place] Nucleated RBC (Bld) [#/Vol] 10*3/uL Normal <0.01 [facility] Comment on above: Order Comment: Speci men Type: BLOOD SPECIMENOrdering Facility: [facility] Address: [address] [place] [address] Performed By: #### 5 7021-8 ####[facility] LABORATORYCLIA [id number] [address] Nucleated RBC/100 WBC (Bld) [Ratio] 0.0 /100 WBC Normal [facility] Comment on above: Order Comment: Speci men Type: BLOOD SPECIMENOrdering Facility: [facility] Address: [address] [place] [address] Performed By: #### 5 7021-8 ####[facility] LABORATORYCLIA [id number] [address] [place] Platelet mean volume (Bld) [Entitic vol] 10.4 fL Normal 9.0-12.7 [facility] Comment on above: Order Comment: Speci men Type: BLOOD SPECIMENOrdering Facility: [facility] Address: [address] [place] [address] Performed By: #### 5 7021-8 ####[facility] LABORATORYCLIA [id number] [place] [address] [place] Platelets (Bld) [#/Vol] 396 10*3/uL Normal 150-400 [facility] Comment on above: Order Comment: Speci men Type: BLOOD SPECIMENOrdering Facility: [facility] Address: [address] [place] [address] Performed By: #### 5 7021-8 ####[facility] LABORATORYCLIA [id number] [place] [address] [place] RBC (Bld) [#/Vol] 3.57 10*6/uL Low 4.20-6.00 [facility] Comment on above: Order Comment: Speci men Type: BLOOD SPECIMENOrdering Facility: [facility] Address: [address] [place] [address] Performed By: #### 5 7021-8 ####[facility] LABORATORYCLIA [id number] [address] STATES OF [facility] WBC (Bld) [#/Vol] 14.87 10*3/uL High 3.70-11.00 [facility] Comment on above: Order Comment: Speci men Type: BLOOD SPECIMENOrdering Facility: [facility] Address: [address] [place] [address] Performed By: #### 5 7021-8 ####[facility] LABORATORYCLIA [id number] [address] OF [facility] Gas and Carbon monoxide pane l (BldV)on 07-21-2021 Base excess Calc (BldV) [Moles/Vol] 7 mmol/L High 0-2 [facility] Comment on above: Order Comment: Speci men Type: VENOUS BLOOD SPECIMENOrdering Facility: [facility] Address: [address] [place] [address] Performed By: #### 2 4344-4 ####[facility] LABORATORYCLIA [id number] [address] Body temperature 98.6 [degF] Normal [facility] Comment on above: Order Comment: Speci men Type: VENOUS BLOOD SPECIMENOrdering Facility: [facility] Address: [address] [place] [address] Performed By: #### 2 4344-4 ####[facility] LABORATORYCLIA [id number] [place] [address] [place] CALCIUM IONIZED, PH CORRECTED 1.21 mmol/L Normal 1.08-1.30 [facility] Comment on above: Order Comment: Speci men Type: VENOUS BLOOD SPECIMENOrdering Facility: [facility] Address: [address] [place] [address] Performed By: #### 2 4344-4 ####[facility] LABORATORYCLIA [id number] [place] [address] [place] Calcium.ionized (BldV) [Mass/Vol] 1.23 mmol/L Normal 1.08-1.30 [facility] Comment on above: Order Comment: Speci men Type: VENOUS BLOOD SPECIMENOrdering Facility: [facility] Address: [address] [place] [address] Performed By: #### 2 4344-4 ####[facility] LABORATORYCLIA [id number] [place] [address] [place] Carboxyhemoglobin (BldV) [Mass fraction] 2.3 % High 0.0-2.0 [facility] Comment on above: Order Comment: Speci men Type: VENOUS BLOOD SPECIMENOrdering Facility: [facility] Address: [address] [place] [address] Result Comment: Carb oxyhemoglobin Reference Range for Smokers: 2.0-8.0% Performed By: #### 2 4344-4 ####[facility] LABORATORYCLIA [id number] [address] [place] CO2 (BldV) [Partial pressure] 58 mm[Hg] High 42-55 [facility] Comment on above: Order Comment: Speci men Type: VENOUS BLOOD SPECIMENOrdering Facility: [facility] Address: [address] [place] [address] Performed By: #### 2 4344-4 ####[facility] LABORATORYCLIA [id number] [place] [address] [place] CO2 [Moles/Vol] 31 mmol/L High 25-29 [facility] Comment on above: Order Comment: Speci men Type: VENOUS BLOOD SPECIMENOrdering Facility: [facility] Address: [address] [place] [address] Performed By: #### 2 4344-4 ####[facility] LABORATORYCLIA [id number] [place] [address] [place] Glucose [Mass/Vol] 146 mg/dL High 60-105 [facility] Comment on above: Order Comment: Speci men Type: VENOUS BLOOD SPECIMENOrdering Facility: [facility] Address: [address] [place] [address] Performed By: #### 2 4344-4 ####[facility] LABORATORYCLIA [id number] [place] [address] [place] HCO3 (Bld) [Moles/Vol] 33 mmol/L High 24-28 [facility] Comment on above: Order Comment: Speci men Type: VENOUS BLOOD SPECIMENOrdering Facility: [facility] Address: [address] [place] [address] Performed By: #### 2 4344-4 ####[facility] LABORATORYCLIA [id number] [place] [address] [place] Hematocrit (Bld) [Volume fraction] 30.1 % Low 39.0-51.0 [facility] Comment on above: Order Comment: Speci men Type: VENOUS BLOOD SPECIMENOrdering Facility: [facility] Address: [address] [address] Performed By: #### 2 4344-4 ####[facility] LABORATORYCLIA [id number] [place] [address] [place] Hemoglobin (Bld) [Mass/Vol] 9.7 g/dL Low 13.0-17.0 [facility] Comment on above: Order Comment: Speci men Type: VENOUS BLOOD SPECIMENOrdering Facility: [facility] Address: [address] [place] [address] Performed By: #### 2 4344-4 ####[facility] LABORATORYCLIA [id number] [place] [id number] [place] Methemoglobin (Bld) [Mass fraction] % Normal 0.0-1.5 [facility] Comment on above: Order Comment: Speci men Type: VENOUS BLOOD SPECIMENOrdering Facility: [facility] Address: [address] [place] [address] Performed By: #### 2 4344-4 ####[facility] LABORATORYCLIA [id number] [address] [place] O2 THERAPY NC = Nasal Cannula Normal [facility] Comment on above: Order Comment: Speci men Type: VENOUS BLOOD SPECIMENOrdering Facility: [facility] Address: [address] [place] [address] Performed By: #### 2 4344-4 ####[facility] LABORATORYCLIA [id number] [address] [place] Oxygen (BldV) [Partial pressure] 64 mm[Hg] High 35-45 [facility] Comment on above: Order Comment: Speci men Type: VENOUS BLOOD SPECIMENOrdering Facility: [facility] Address: [address] [place] [address] Performed By: #### 2 4344-4 ####[facility] LABORATORYCLIA [id number] [address] [place] Oxygen saturation in Blood 90 % High 60-85 [facility] Comment on above: Order Comment: Speci men Type: VENOUS BLOOD SPECIMENOrdering Facility: [facility] Address: [address] [place] [address] Performed By: #### 2 4344-4 ####[facility] LABORATORYCLIA [id number] [address] [place] Oxyhemoglobin (BldV) [Mass fraction] 87 % High 60-85 [facility] Comment on above: Order Comment: Speci men Type: VENOUS BLOOD SPECIMENOrdering Facility: [facility] Address: [address] [place] [address] Performed By: #### 2 4344-4 ####[facility] LABORATORYCLIA [id number] [place] [address] [place] pH (BldV) 7.38 [pH] Normal 7.32-7.42 [facility] Comment on above: Order Comment: Speci men Type: VENOUS BLOOD SPECIMENOrdering Facility: [facility] Address: [address] [place] [address] Performed By: #### 2 4344-4 ####[facility] LABORATORYCLIA [id number] [address] [place] Potassium [Moles/Vol] 3.8 mmol/L Normal 3.5-5.0 [facility] Comment on above: Order Comment: Speci men Type: VENOUS BLOOD SPECIMENOrdering Facility: [facility] Address: [address] [place] [address] Performed By: #### 2 4344-4 ####[facility] LABORATORYCLIA [id number] [address] [place] Sodium [Moles/Vol] 145 mmol/L High 136-144 [facility] Comment on above: Order Comment: Speci men Type: VENOUS BLOOD SPECIMENOrdering Facility: [facility] Address: [address] [place] [address] Performed By: #### 2 4344-4 ####[facility] LABORATORYCLIA [id number] [address] [place] Base excess Calc (BldV) [Moles/Vol] 8 mmol/L High 0-2 [facility] Comment on above: Order Comment: Speci men Type: VENOUS BLOOD SPECIMENOrdering Facility: [facility] Address: [address] [place] [address] Performed By: #### 2 4344-4 ####[facility] LABORATORYCLIA [id number] [address] [place] Body temperature 100.22 [degF] Normal [facility] Comment on above: Order Comment: Speci men Type: VENOUS BLOOD SPECIMENOrdering Facility: [facility] Address: [address] [place] [address] Performed By: #### 2 4344-4 ####[facility] LABORATORYCLIA [id number] [address] STATES OF [facility] CALCIUM IONIZED, PH CORRECTED 1.25 mmol/L Normal 1.08-1.30 [facility] Comment on above: Order Comment: Speci men Type: VENOUS BLOOD SPECIMENOrdering Facility: [facility] Address: [address] [place] [address] Performed By: #### 2 4344-4 ####[facility] LABORATORYCLIA [id number] [address] Calcium.ionized (BldV) [Mass/Vol] 1.24 mmol/L Normal 1.08-1.30 [facility] Comment on above: Order Comment: Speci men Type: VENOUS BLOOD SPECIMENOrdering Facility: [facility] Address: [address] [place] [address] Performed By: #### 2 4344-4 ####[facility] LABORATORYCLIA [id number] [address] [place] Carboxyhemoglobin (BldV) [Mass fraction] 2.5 % High 0.0-2.0 [facility] Comment on above: Order Comment: Speci men Type: VENOUS BLOOD SPECIMENOrdering Facility: [facility] Address: [address] [place] [address] Result Comment: Carb oxyhemoglobin Reference Range for Smokers: 2.0-8.0% Performed By: #### 2 4344-4 ####[facility] LABORATORYCLIA [id number] [address] [place] CO2 (BldV) [Partial pressure] 53 mm[Hg] Normal 42-55 [facility] Comment on above: Order Comment: Speci men Type: VENOUS BLOOD SPECIMENOrdering Facility: [facility] Address: [address] [place] [address] Performed By: #### 2 4344-4 ####[facility] LABORATORYCLIA [id number] [address] [place] CO2 [Moles/Vol] 31 mmol/L High 25-29 [facility] Comment on above: Order Comment: Speci men Type: VENOUS BLOOD SPECIMENOrdering Facility: [facility] Address: [address] [place] [address] Performed By: #### 2 4344-4 ####[facility] LABORATORYCLIA [id number] [address] [place] CO2 adjusted to patient's actual temperature (BldV) [Partial pressure] 56 mmHg High 42-55 [facility] Comment on above: Order Comment: Speci men Type: VENOUS BLOOD SPECIMENOrdering Facility: [facility] Address: [address] [place] [address] Performed By: #### 2 4344-4 ####[facility] LABORATORYCLIA [id number] [address] [place] Glucose [Mass/Vol] 131 mg/dL High 60-105 [facility] Comment on above: Order Comment: Speci men Type: VENOUS BLOOD SPECIMENOrdering Facility: [facility] Address: [address] [place] [address] Performed By: #### 2 4344-4 ####[facility] LABORATORYCLIA [id number] [place] [address] [place] HCO3 (Bld) [Moles/Vol] 33 mmol/L High 24-28 [facility] Comment on above: Order Comment: Speci men Type: VENOUS BLOOD SPECIMENOrdering Facility: [facility] Address: [address] [place] [address] Performed By: #### 2 4344-4 ####[facility] LABORATORYCLIA [id number] [place] [address] [place] Hematocrit (Bld) [Volume fraction] 30.8 % Low 39.0-51.0 [facility] Comment on above: Order Comment: Speci men Type: VENOUS BLOOD SPECIMENOrdering Facility: [facility] Address: [address] [place] [address] Performed By: #### 2 4344-4 ####[facility] LABORATORYCLIA [id number] [address] OF [facility] Hemoglobin (Bld) [Mass/Vol] 10.0 g/dL Low 13.0-17.0 [facility] Comment on above: Order Comment: Speci men Type: VENOUS BLOOD SPECIMENOrdering Facility: [facility] Address: [address] [place] [address] Performed By: #### 2 4344-4 ####[facility] LABORATORYCLIA [id number] [address] Methemoglobin (Bld) [Mass fraction] % Normal 0.0-1.5 [facility] Comment on above: Order Comment: Speci men Type: VENOUS BLOOD SPECIMENOrdering Facility: [facility] Address: [address] [place] [address] Performed By: #### 2 4344-4 ####[facility] LABORATORYCLIA [id number] [address] O2 THERAPY NC = Nasal Cannula Normal [facility] Comment on above: Order Comment: Speci men Type: VENOUS BLOOD SPECIMENOrdering Facility: [facility] Address: [address] [place] [address] Performed By: #### 2 4344-4 ####[facility] LABORATORYCLIA [id number] [address] Oxygen (BldV) [Partial pressure] 58 mm[Hg] High 35-45 [facility] Comment on above: Order Comment: Speci men Type: VENOUS BLOOD SPECIMENOrdering Facility: [facility] Address: [address] [place] [address] Performed By: #### 2 4344-4 ####[facility] LABORATORYCLIA [id number] [place] [address] [place] Oxygen adjusted to patient's actual temperature (BldV) [Partial pressure] 61 mmHg High 35-45 [facility] Comment on above: Order Comment: Speci men Type: VENOUS BLOOD SPECIMENOrdering Facility: [facility] Address: [address] [address] Performed By: #### 2 4344-4 ####[facility] LABORATORYCLIA [id number] [address] [place] Oxygen saturation in Blood 88 % High 60-85 [facility] Comment on above: Order Comment: Speci men Type: VENOUS BLOOD SPECIMENOrdering Facility: [facility] Address: [address] [place] [address] Performed By: #### 2 4344-4 ####[facility] LABORATORYCLIA [id number] [address] Oxyhemoglobin (BldV) [Mass fraction] 85 % Normal 60-85 [facility] Comment on above: Order Comment: Speci men Type: VENOUS BLOOD SPECIMENOrdering Facility: [facility] Address: [address] [address] Performed By: #### 2 4344-4 ####[facility]ORATORYCLIA [id number] [address] [place] pH (BldV) 7.41 [pH] Normal 7.32-7.42 [facility] Comment on above: Order Comment: Speci men Type: VENOUS BLOOD SPECIMENOrdering Facility: [facility] Address: [address] [address] Performed By: #### 2 4344-4 ####[facility]ORATORYCLIA [id number] [address] STATES [facility] pH adjusted to patient's actual temperature (BldV) 7.40 Normal 7.32-7.42 [facility] Comment on above: Order Comment: Speci men Type: VENOUS BLOOD SPECIMENOrdering Facility: [facility] Address: [address] [address] Performed By: #### 2 4344-4 ####[facility] LABORATORYCLIA [id number] [address] [place] Potassium [Moles/Vol] 4.0 mmol/L Normal 3.5-5.0 [facility] Comment on above: Order Comment: Speci men Type: VENOUS BLOOD SPECIMENOrdering Facility: [facility] Address: [address] [place] [address] Performed By: #### 2 4344-4 ####[facility] LABORATORYCLIA [id number] [address] STATES OF [facility] Sodium [Moles/Vol] 146 mmol/L High 136-144 [facility] Comment on above: Order Comment: Speci men Type: VENOUS BLOOD SPECIMENOrdering Facility: [facility] Address: [address] [place] [address] Performed By: #### 2 4344-4 ####[facility] LABORATORYCLIA [id number] [address] [place] Magnesium SerPl-ncon 07-21 Magnesium [Mass/Vol] 2.5 mg/dL High 1.7-2.3 [facility] Comment on above: Order Comment: Speci men Type: BLOOD SPECIMENOrdering Facility: [facility] Address: [address] [place] [address] Performed By: #### 1 9123-9, 2777-1, 25962-1 ####[facility] LABORATORYCLIA [id number] [address] [place] NURSING PROGon 07-21-2021 NURSING PROG Normal [facility] Phosphate SerPl-mCncon 07-21 Phosphate [Mass/Vol] 3.7 mg/dL Normal 2.7-4.8 [facility] Comment on above: Order Comment: Speci men Type: BLOOD SPECIMENOrdering Facility: [facility] Address: [address] [place] [address] Performed By: #### 1 9123-9, 2777-1, 36744-3 ####[facility] LABORATORYCLIA [id number] [place] [address] [facility] [place] THERAPY NTon 07-21-2021 THERAPY NT Normal [facility] XR CHEST 1V FRONTALon 2021 XR CHEST 1V FRONTAL Normal [facility] aPTT PPPon 07-21-2021 aPTT Coag (PPP) [Time] 53.0 s High 23.0-32.4 [facility] Comment on above: Order Comment: Speci men Type: BLOOD SPECIMENOrdering Facility: [facility] Address: [address] [place] [address] Performed By: #### 1 4979-9 ####[facility] LABORATORYCLIA [id number] [address] [place] ALLIED HEALTHon 07-20-2021 ALLIED HEALTH Normal [facility] Basic metabolic 2000 panelon 07-20-2021 Anion gap [Moles/Vol] 8 mmol/L Low 9-18 [facility] Comment on above: Order Comment: Speci men Type: BLOOD SPECIMENOrdering Facility: [facility] Address: [address] [place] [address] Performed By: #### 2 4321-2, 43179-9, 2777-1 ####[facility]ITALCLIA [id number] [place] [address] [place] Calcium [Mass/Vol] 9.7 mg/dL Normal 8.5-10.2 [facility] Comment on above: Order Comment: Speci men Type: BLOOD SPECIMENOrdering Facility: [facility] Address: [address] [place] [address] Performed By: #### 2 4321-2, 01093-6, 2777-1 ####[facility] LABORATORYCLIA [id number] [place] [address] [place] Chloride [Moles/Vol] 104 mmol/L Normal 97-105 [facility] Comment on above: Order Comment: Speci men Type: BLOOD SPECIMENOrdering Facility: [facility] Address: [address] [place] [address] Performed By: #### 2 4321-2, , 2776-05 ####[facility] LABORATORYCLIA [id number] [place] [address] [place] CO2 [Moles/Vol] 34 mmol/L High 22-30 [facility] Comment on above: Order Comment: Speci men Type: BLOOD SPECIMENOrdering Facility: [facility] Address: [address] [place] [address] Performed By: #### 2 4321-2, , 2776-05 ####[facility] LABORATORYCLIA [id number] [place], [place] [address] [place] [address] STATES OF [facility] Creatinine [Mass/Vol] 0.76 mg/dL Normal 0.73-1.22 [facility] Comment on above: Order Comment: Speci men Type: BLOOD SPECIMENOrdering Facility: [facility] Address: [address] [place] [address] Performed By: #### 2 4321-2, , 2776-05 ####[facility]PITALCLIA [id number] [address] ESTIMATED GLOMERULAR FILTRATION RATE 97 mL/min/1.73m??? Normal >=60 [facility] Comment on above: Order Comment: Speci men Type: BLOOD SPECIMENOrdering Facility: [facility] Address: [address] [place] [address] Result Comment: Luzmaria mated Glomerular Filtration Rate [...] 2 4321-2, , 2776-05 ####[facility] LABORATORYCLIA [id number] [place] [address] [place] Glucose [Mass/Vol] 123 mg/dL High 74-99 [facility] Comment on above: Order Comment: Shira feldman Type: BLOOD SPECIMENOrdering Facility: [facility] Address: [address] [place], [place] [address] Result Comment: The [place] [employer] (ADA) provides guidance for cutoff [...] Standards of Medical Care in Diabetes 2016, [place] [employer]. Diabetes Care. 2016.39(Suppl 1). Performed By: #### 2 4321-2, , 2776-05 ####[facility] LABORATORYCLIA [id number] [place] [address] [place] Potassium [Moles/Vol] 4.4 mmol/L Normal 3.7-5.1 [facility] Comment on above: Order Comment: Shira feldman Type: BLOOD SPECIMENOrdering Facility: [facility] Address: [address] [place], [place] [address] Performed By: #### 2 4321-2, , 2776-05 ####[facility] LABORATORYCLIA [id number] [place] [address] [place] Sodium [Moles/Vol] 146 mmol/L High 136-144 [facility] Comment on above: Order Comment: Shira feldman Type: BLOOD SPECIMENOrdering Facility: [facility] Address: [address] [place], [place] [address] Performed By: #### 2 4321-2, , 2776-05 ####[facility] LABORATORYCLIA [id number] [place] [address] [place] Urea nitrogen [Mass/Vol] 38 mg/dL High 9-24 [facility] Comment on above: Order Comment: Speci men Type: BLOOD SPECIMENOrdering Facility: [facility] Address: [address] [place] [address] Performed By: #### 2 4321-2, 64548-4, 2777-1 ####[facility] LABORATORYCLIA [id number] [address] [place] CASE MANAGEMon 07-20-2021 CASE MANAGEM Normal [facility] CBC W Auto Differential pane l (Bld)on 07-20-2021 Basophils (Bld) [#/Vol] 0.05 10*3/uL Normal <0.11 [facility] Comment on above: Order Comment: Speci men Type: BLOOD SPECIMENOrdering Facility: [facility] Address: [address] [place] [address] Performed By: #### 5 7021-8 ####[facility] LABORATORYCLIA [id number] [address] [place] Basophils/100 WBC (Bld) 0.5 % Normal [facility] Comment on above: Order Comment: Speci men Type: BLOOD SPECIMENOrdering Facility: [facility] Address: [address] [place] [address] Performed By: #### 5 7021-8 ####[facility] LABORATORYCLIA [id number] [address] [place] Differential cell count method Nom (Bld) Auto Normal [facility] Comment on above: Order Comment: Speci men Type: BLOOD SPECIMENOrdering Facility: [facility] Address: [address] [place] [address] Performed By: #### 5 7021-8 ####[facility] LABORATORYCLIA [id number] [place] [address] [place] Eosinophils (Bld) [#/Vol] 0.43 10*3/uL Normal <0.46 [facility] Comment on above: Order Comment: Speci men Type: BLOOD SPECIMENOrdering Facility: [facility] Address: [address] [place], [place] [address] Performed By: #### 5 7021-8 ####[facility] LABORATORYCLIA [id number] [address] [place] Eosinophils/100 WBC (Bld) 4.1 % Normal [facility] Comment on above: Order Comment: Speci men Type: BLOOD SPECIMENOrdering Facility: [facility] Address: [address] [place] [address] Performed By: #### 5 7021-8 ####[facility] LABORATORYCLIA [id number] [address] [place] Erythrocyte distribution width (RBC) [Ratio] 16.7 % High 11.5-15.0 [facility] Comment on above: Order Comment: Speci men Type: BLOOD SPECIMENOrdering Facility: [facility] Address: [address] [place] [address] Performed By: #### 5 7021-8 ####[facility] LABORATORYCLIA [id number] [address] Hematocrit (Bld) [Volume fraction] 33.0 % Low 39.0-51.0 [facility] Comment on above: Order Comment: Speci men Type: BLOOD SPECIMENOrdering Facility: [facility] Address: [address] [place] [address] Performed By: #### 5 7021-8 ####[facility] LABORATORYCLIA [id number] [address] [place] Hemoglobin (Bld) [Mass/Vol] 9.7 g/dL Low 13.0-17.0 [facility] Comment on above: Order Comment: Speci men Type: BLOOD SPECIMENOrdering Facility: [facility] Address: [address] [place] [address] Performed By: #### 5 7021-8 ####[facility]ORATORYCLIA [id number] [address] [place] IMMATURE GRAN % 0.4 % Normal [facility] Comment on above: Order Comment: Speci men Type: BLOOD SPECIMENOrdering Facility: [facility] Address: [address] [place] [address] Performed By: #### 5 7021-8 ####[facility] LABORATORYCLIA [id number] [address] IMMATURE GRAN ABS 0.04 k/uL Normal <0.10 [facility] Comment on above: Order Comment: Speci men Type: BLOOD SPECIMENOrdering Facility: [facility] Address: [address] [place] [address] Performed By: #### 5 7021-8 ####[facility] LABORATORYCLIA [id number] [address] Lymphocytes (Bld) [#/Vol] 1.99 10*3/uL Normal 1.00-4.00 [facility] Comment on above: Order Comment: Speci men Type: BLOOD SPECIMENOrdering Facility: [facility] Address: [address] [place] [address] Performed By: #### 5 7021-8 ####[facility] LABORATORYCLIA [id number] [address] Lymphocytes/100 WBC (Bld) 18.8 % Normal [facility] Comment on above: Order Comment: Speci men Type: BLOOD SPECIMENOrdering Facility: [facility] Address: [address] [place] [address] Performed By: #### 5 7021-8 ####[facility] LABORATORYCLIA [id number] [address] MCH (RBC) [Entitic mass] 27.8 pg Normal 26.0-34.0 [facility] Comment on above: Order Comment: Speci men Type: BLOOD SPECIMENOrdering Facility: [facility] Address: [address] [place] [address] Performed By: #### 5 7021-8 ####[facility] LABORATORYCLIA [id number] [address] MCHC (RBC) [Mass/Vol] 29.4 g/dL Low 30.5-36.0 [facility] Comment on above: Order Comment: Speci men Type: BLOOD SPECIMENOrdering Facility: [facility] Address: [address] [place] [address] Performed By: #### 5 7021-8 ####[facility] LABORATORYCLIA [id number] [address] [place] MCV (RBC) [Entitic vol] 94.6 fL Normal 80.0-100.0 [facility] Comment on above: Order Comment: Speci men Type: BLOOD SPECIMENOrdering Facility: [facility] Address: [address] [place] [address] Performed By: #### 5 7021-8 ####[facility] LABORATORYCLIA [id number] [address] [place] Monocytes (Bld) [#/Vol] 0.82 10*3/uL Normal <0.87 [facility] Comment on above: Order Comment: Speci men Type: BLOOD SPECIMENOrdering Facility: [facility] Address: [address] [place] [address] Performed By: #### 5 7021-8 ####[facility] LABORATORYCLIA [id number] [address] [place] Monocytes/100 WBC (Bld) 7.8 % Normal [facility] Comment on above: Order Comment: Speci men Type: BLOOD SPECIMENOrdering Facility: [facility] Address: [address] [place] [address] Performed By: #### 5 7021-8 ####[facility] LABORATORYCLIA [id number] [address] [place] Neutrophils (Bld) [#/Vol] 7.23 10*3/uL Normal 1.45-7.50 [facility] Comment on above: Order Comment: Speci men Type: BLOOD SPECIMENOrdering Facility: [facility] Address: [address] [place] [address] Performed By: #### 5 7021-8 ####[facility]ORYCLIA [id number] [address] Neutrophils/100 WBC (Bld) 68.4 % Normal [facility] Comment on above: Order Comment: Speci men Type: BLOOD SPECIMENOrdering Facility: [facility] Address: [address] [place] [address] Performed By: #### 5 7021-8 ####[facility] LABORATORYCLIA [id number] [address] [place] Nucleated RBC (Bld) [#/Vol] 10*3/uL Normal <0.01 [facility] Comment on above: Order Comment: Speci men Type: BLOOD SPECIMENOrdering Facility: [facility] Address: [address] [place] [address] Performed By: #### 5 7021-8 ####[facility] LABORATORYCLIA [id number] [address] Nucleated RBC/100 WBC (Bld) [Ratio] 0.0 /100 WBC Normal [facility] Comment on above: Order Comment: Speci men Type: BLOOD SPECIMENOrdering Facility: [facility] Address: [address] [place] [address] Performed By: #### 5 7021-8 ####[facility] LABORATORYCLIA [id number] [address] [place] Platelet mean volume (Bld) [Entitic vol] 10.5 fL Normal 9.0-12.7 [facility] Comment on above: Order Comment: Speci men Type: BLOOD SPECIMENOrdering Facility: [facility] Address: [address] [place] [address] Performed By: #### 5 7021-8 ####[facility] LABORATORYCLIA [id number] [address] [place] Platelets (Bld) [#/Vol] 400 10*3/uL Normal 150-400 [facility] Comment on above: Order Comment: Speci men Type: BLOOD SPECIMENOrdering Facility: [facility] Address: [address] [place] [address] Performed By: #### 5 7021-8 ####[facility] LABORATORYCLIA [id number] [address] RBC (Bld) [#/Vol] 3.49 10*6/uL Low 4.20-6.00 [facility] Comment on above: Order Comment: Speci men Type: BLOOD SPECIMENOrdering Facility: [facility] Address: [address] [place] [address] Performed By: #### 5 7021-8 ####[facility] LABORATORYCLIA [id number] [address] WBC (Bld) [#/Vol] 10.56 10*3/uL Normal 3.70-11.00 [facility] Comment on above: Order Comment: Speci men Type: BLOOD SPECIMENOrdering Facility: [facility] Address: [address] [place] [address] Performed By: #### 5 7021-8 ####[facility] LABORATORYCLIA [id number] [address] CONSULT PROGon 07-20-2021 CONSULT PROG Normal [facility] CT BRAIN WO IVCONon 07-21-[address] BRAIN WO IVCON Normal [facility] Magnesium [Mass/Vol] 2.4 mg/dL High 1.7-2.3 [facility] Comment on above: Order Comment: Speci men Type: BLOOD SPECIMENOrdering Facility: [facility] Address: [address] [place] [address] Performed By: #### 2 4321-2, 87395-9, 2777-1 ####[facility]ORYCLIA [id number] [address] [place] NUTRITIONon 07-20-2021 NUTRITION Normal [facility] Phosphate SerPl-mCncon 07-20 Phosphate [Mass/Vol] 4.1 mg/dL Normal 2.7-4.8 [facility] Comment on above: Order Comment: Speci men Type: BLOOD SPECIMENOrdering Facility: [facility] Address: [address] [place] [address] Performed By: #### 2 4321-2, 19047-9, 2777-1 ####[facility] LABORATORYCLIA [id number] [place] [address] [place] aPTT PPPon 07-20-2021 aPTT Coag (PPP) [Time] 53.6 s High 23.0-32.4 [facility] Comment on above: Order Comment: Speci men Type: BLOOD SPECIMENOrdering Facility: [facility] Address: [address] [place] [address] Performed By: #### 1 4979-9 ####[facility] LABORATORYCLIA [id number] [address] [place] Bacteria CSF Culton 07-20-19 22 Bacteria identified Cx Nom (CSF) CULTURE, CSF: No growth 14 days GRAM STAIN: No organisms seen No Polymorphonuclear Leukocytes Rare Mononuclear cells Gram stain performed on cytospun specimen. Normal [facility] Comment on above: Performed By: #### 6 06-4 ####[facility] LABORATORYCLIA [id number] [place] [address] [place] CONSULT PROGon 07-19-2021 CONSULT PROG Normal [facility] CSF MANUAL DIFFon 07-19-2021 DIF TTL, CSF 100 cells counted Normal [facility] Comment on above: Order Comment: Speci men Type: CEREBROSPINAL FLUIDOrdering Facility: [facility] Address: [address] [place] [address] Performed By: #### L [id number], 99682-2, [id number] ####[facility] LABORATORYCLIA [id number] [place] [address] [place] EOSIN%, CSF 1 % Normal [facility] Comment on above: Order Comment: Speci men Type: CEREBROSPINAL FLUIDOrdering Facility: [facility] Address: [address] [address] Performed By: #### L [id number], 33622-5, [id number] ####[facility]ATORYCLIA [id number] [place] [address] [place] LYMPH%, CSF 67 % Normal 50-90 [facility] Comment on above: Order Comment: Speci men Type: CEREBROSPINAL FLUIDOrdering Facility: [facility] Address: [address] [place] [address] Performed By: #### L [id number], 66675-9, [id number] ####[facility]ORYCLIA [id number] [address] [place] MACRO%, CSF 1 % High <1 [facility] Comment on above: Order Comment: Speci men Type: CEREBROSPINAL FLUIDOrdering Facility: [facility] Address: [address] [place] [address] Performed By: #### L WI9185, 14317-2, [id number] ####[facility]ORYCLIA [id number] [place] [address] [place] MONO%, CSF 18 % Normal 10-50 [facility] Comment on above: Order Comment: Speci men Type: CEREBROSPINAL FLUIDOrdering Facility: [facility] Address: [address] [place] [address] Performed By: #### L [id number], 04623-8, [id number] ####[facility]ORYCLIA [id number] [place] [address] [place] NEUT%, CSF 11 % High 0-3 [facility] Comment on above: Order Comment: Speci men Type: CEREBROSPINAL FLUIDOrdering Facility: [facility] Address: [address] [place] [address] Performed By: #### L [id number], 51966-5, [id number] ####[facility]ORYCLIA [id number] [address] [place] OTHER CL%, CSF 2 % Normal [facility] Comment on above: Order Comment: Speci men Type: CEREBROSPINAL FLUIDOrdering Facility: [facility] Address: [address] [place] [address] Result Comment: Path review to follow. Performed By: #### L [id number], 70164-2, [id number] ####[facility] LABORATORYCLIA [id number] [address] CSF PATHOLOGIST INTERP (LAB REFLEX ORDER-NO BILL)on 07-19-2021 CSF STAFF REVIEW Normal [facility] Comment on above: Order Comment: Speci men Type: CEREBROSPINAL FLUIDOrdering Facility: [facility] Address: [address] [place] [address] Performed By: #### L [id number], 25717-9, [id number] ####[facility] LABORATORYCLIA [id number] [address] Pathologist name Reviewed by Wing Cummings MD [facility] Comment on above: Order Comment: Speci men Type: CEREBROSPINAL FLUIDOrdering Facility: [facility] Address: [address] [place] [address] Performed By: #### L [id number], 65605-2, [id number] ####[facility] LABORATORYCLIA [id number] [address] Cell count panel (CSF)on Clarity (CSF) Clear Normal Clear [facility] Comment on above: Order Comment: Speci men Type: CEREBROSPINAL FLUIDOrdering Facility: [facility] Address: [address] [place] [address] Performed By: #### L [id number], 86231-8, [id number] ####[facility] LABORATORYCLIA [id number] [address] Clarity (Unsp spec) Not Indicated Normal Clear [facility] Comment on above: Order Comment: Speci men Type: CEREBROSPINAL FLUIDOrdering Facility: [facility] Address: [address] [place] [address] Performed By: #### L [id number], 96284-4, [id number] ####[facility]ATORYCLIA [id number] [address] OF [facility] Color (CSF) Colorless Normal Colorless [facility] Comment on above: Order Comment: Speci men Type: CEREBROSPINAL FLUIDOrdering Facility: [facility] Address: [address] [place] [address] Performed By: #### L [id number], 84928-2, [id number] ####[facility]ORYCLIA [id number] [address] [place] Color (Spun CSF) Not Indicated Normal Colorless [facility] Comment on above: Order Comment: Speci men Type: CEREBROSPINAL FLUIDOrdering Facility: [facility] Address: [address] [place] [address] Performed By: #### L [id number], 43307-9, [id number] ####[facility] LABORATORYCLIA [id number] [address] OF [facility] CSF TUBE NUMBER [employer] Container Normal [facility] Comment on above: Order Comment: Speci men Type: CEREBROSPINAL FLUIDOrdering Facility: [facility] Address: [address] [place] [address] Performed By: #### L [id number], 45720-8, [id number] ####[facility]ORYCLIA [id number] [address] OF [facility] RBC Manual cnt (CSF) [#/Vol] 0 cells/uL Normal 0-5 [facility] Comment on above: Order Comment: Speci men Type: CEREBROSPINAL FLUIDOrdering Facility: [facility] Address: [address] [place] [address] Performed By: #### L [id number], 78692-2, [id number] ####[facility]ORATORYCLIA [id number] [address] WBC Manual cnt (CSF) [#/Vol] 2 cells/uL Normal 0-5 [facility] Comment on above: Order Comment: Speci men Type: CEREBROSPINAL FLUIDOrdering Facility: [facility] Address: [address] [place] [address] Performed By: #### L [id number], 25046-4, [id number] ####[facility] LABORATORYCLIA [id number] [place] [address] [place] Glucose CSF-mCncon Glucose (CSF) [Mass/Vol] 69 mg/dL Normal 40-70 [facility] Comment on above: Order Comment: Speci men Type: CEREBROSPINAL FLUIDOrdering Facility: [facility] Address: [address] [place] [address] Result Comment: Lumb ar CSF glucose values of healthy patients are approximately 60% of the plasma values and must always be compared with a concurrently measured plasma value for adequate clinical interpretation.References: 1. Glucose HK (GLUC3) [package insert V 12.0 [place]er]. [employer], [place], [place]. September 2015. 2. Michlele Moore, Loki HGarfield (2015). Chapter 7: Glucose and Lactate. FGarfield Alcocer al.(eds.), Cerebrospinal Fluid in Clinical Neurology. [place]: [employer]. Performed By: #### 2 342-4, 2880-3 ####[facility] LABORATORYCLIA [id number] [place] [address] [place] NURSING PROGon 07-19-2021 NURSING PROG Normal [facility] NURSING PROG Normal [facility] Prot CSF-mCncon 07-19-2021 Protein (CSF) [Mass/Vol] 51 mg/dL High 15-45 [facility] Comment on above: Order Comment: Speci men Type: CEREBROSPINAL FLUIDOrdering Facility: [facility] Address: [address] [place] [address] Performed By: #### 2 342-4, 2880-3 ####[facility] LABORATORYCLIA [id number] [address] [place] THERAPY NTon 07-19-2021 THERAPY NT Normal [facility] Urinalysis complete panel (U )on 07-19-2021 Bilirubin Ql (U) Negative Normal Negative [facility] Comment on above: Order Comment: Speci men Type: URINE SPECIMENOrdering Facility: [facility] Address: [address] [place] [address] Performed By: #### 2 4356-8 ####[facility] LABORATORYCLIA [id number] [address] [place] Clarity (Unsp spec) Clear Normal Clear [facility] Comment on above: Order Comment: Speci men Type: URINE SPECIMENOrdering Facility: [facility] Address: [address] [place] [address] Performed By: #### 2 4356-8 ####[facility] LABORATORYCLIA [id number] [address] STATES [facility] Color (U) Colorless Normal yellow [facility] Comment on above: Order Comment: Speci men Type: URINE SPECIMENOrdering Facility: [facility] Address: [address] [place] [address] Performed By: #### 2 4356-8 ####[facility] LABORATORYCLIA [id number] [address] [place] Glucose Test strip (U) [Mass/Vol] Negative Normal Negative [facility] Comment on above: Order Comment: Speci men Type: URINE SPECIMENOrdering Facility: [facility] Address: [address] [place] [address] Performed By: #### 2 4356-8 ####[facility] LABORATORYCLIA [id number] [address] Hemoglobin Ql (U) Trace Abnormal Negative [facility] Comment on above: Order Comment: Speci men Type: URINE SPECIMENOrdering Facility: [facility] Address: [address] [place] [address] Performed By: #### 2 4356-8 ####[facility] LABORATORYCLIA [id number] [address] [place] Hyaline casts (Urine sed) [#/Area] 1-3 /LPF Abnormal 0 /LPF [facility] Comment on above: Order Comment: Speci men Type: URINE SPECIMENOrdering Facility: [facility] Address: [address] [place] [address] Performed By: #### 2 4356-8 ####[facility] LABORATORYCLIA [id number] [address] OF [facility] Ketones Ql (U) Negative Normal Negative [facility] Comment on above: Order Comment: Speci men Type: URINE SPECIMENOrdering Facility: [facility] Address: [address] [place] [address] Performed By: #### 2 4356-8 ####[facility] LABORATORYCLIA [id number] [address] Leukocyte esterase Test strip Ql (U) Negative Normal Negative [facility] Comment on above: Order Comment: Speci men Type: URINE SPECIMENOrdering Facility: [facility] Address: [address] [place] [address] Performed By: #### 2 4356-8 ####[facility] LABORATORYCLIA [id number] [address] STATES OF [facility] Nitrite Ql (U) Negative Normal Negative [facility] Comment on above: Order Comment: Speci men Type: URINE SPECIMENOrdering Facility: [facility] Address: [address] [place] [address] Performed By: #### 2 4356-8 ####[facility] LABORATORYCLIA [id number] [address] [place] pH (U) 7.0 [pH] Normal 5.0-8.0 [facility] Comment on above: Order Comment: Speci men Type: URINE SPECIMENOrdering Facility: [facility] Address: [address] [place] [address] Performed By: #### 2 4356-8 ####[facility]ATORYCLIA [id number] [address] STATES [place] Protein (U) [Mass/Vol] Negative Normal Negative [facility] Comment on above: Order Comment: Speci men Type: URINE SPECIMENOrdering Facility: [facility] Address: [address] [place] [address] Performed By: #### 2 4356-8 ####[facility] LABORATORYCLIA [id number] [address] RBC LM.HPF (Urine sed) [#/Area] 6-10 /HPF Abnormal 0-3 /HPF [facility] Comment on above: Order Comment: Speci men Type: URINE SPECIMENOrdering Facility: [facility] Address: [address] [place] [address] Performed By: #### 2 4356-8 ####[facility] LABORATORYCLIA [id number] [address] Specific gravity (U) [Rel density] 1.008 Normal 1.005-1.030 [facility] Comment on above: Order Comment: Speci men Type: URINE SPECIMENOrdering Facility: [facility] Address: [address] [place] [address] Performed By: #### 2 4356-8 ####[facility] LABORATORYCLIA [id number] [address] Urobilinogen Ql (U) Normal Normal Negative [facility] Comment on above: Order Comment: Speci men Type: URINE SPECIMENOrdering Facility: [facility] Address: [address] [place] [address] Performed By: #### 2 4356-8 ####[facility] LABORATORYCLIA [id number] [address] WBC LM.HPF (Urine sed) [#/Area] 0-5 /HPF Normal 0-5 /HPF [facility] Comment on above: Order Comment: Speci men Type: URINE SPECIMENOrdering Facility: [facility] Address: [address] [place] [address] Performed By: #### 2 4356-8 ####[facility] LABORATORYCLIA [id number] [address] Vancomycin random [Mass/Vol] on 07-19-2021 Vancomycin [Mass/Vol] 13.9 ug/mL Normal 10.0-20.0 [facility] Comment on above: Order Comment: Speci men Type: BLOOD SPECIMENOrdering Facility: [facility] Address: [address] [place] [address] Result Comment: Refe rence ranges and high/low indicator flags are provided as general guidelines only. The treating physician must determine appropriate target levels/dosing based on the specific clinical situation. Performed By: #### 4 091-5 ####[facility]ORATORYCLIA [id number] [address] [place] aPTT PPPon 07-19-2021 aPTT Coag (PPP) [Time] 53.9 s High 23.0-32.4 [facility] Comment on above: Order Comment: Speci men Type: BLOOD SPECIMENOrdering Facility: [facility] Address: [address] [place] [address] Performed By: #### 1 4979-9 ####[facility] LABORATORYCLIA [id number] [place] [address] [place] Basic metabolic 2000 panelon 07-18-2021 Anion gap [Moles/Vol] 6 mmol/L Low 9-18 [facility] Comment on above: Order Comment: Speci men Type: BLOOD SPECIMENOrdering Facility: [facility] Address: [address] [place] [address] Performed By: #### 2 4321-2, , 2777-1 ####[facility]ORATORYCLIA [id number] [place] [address] [place] Calcium [Mass/Vol] 9.4 mg/dL Normal 8.5-10.2 [facility] Comment on above: Order Comment: Speci men Type: BLOOD SPECIMENOrdering Facility: [facility] Address: [address] [place] [address] Performed By: #### 2 4321-2, , 2777-1 ####[facility] LABORATORYCLIA [id number] [address] [place] Chloride [Moles/Vol] 103 mmol/L Normal 97-105 [facility] Comment on above: Order Comment: Speci francia Type: BLOOD SPECIMENOrdering Facility: [facility] Address: [address] [place] [address] Performed By: #### 2 4321-2, 94310-1, 277-1 ####[facility] LABORATORYCLIA [id number] [place] [id number] [place] CO2 [Moles/Vol] 34 mmol/L High 22-30 [facility] Comment on above: Order Comment: Speci men Type: BLOOD SPECIMENOrdering Facility: [facility] Address: [address] [place] [address] Performed By: #### 2 4321-2, , 2776-05 ####[facility]ITALCLIA [id number] [address] Creatinine [Mass/Vol] 0.75 mg/dL Normal 0.73-1.22 [facility] Comment on above: Order Comment: Speci men Type: BLOOD SPECIMENOrdering Facility: [facility] Address: [address] [place] [address] Performed By: #### 2 4321-2, , 2777 ####[facility]ORATORYCLIA [id number] [address] ESTIMATED GLOMERULAR FILTRATION RATE 98 mL/min/1.73m??? Normal >=60 [facility] Comment on above: Order Comment: Speci men Type: BLOOD SPECIMENOrdering Facility: [facility] Address: [address] [place] [address] Result Comment: Luzmaria mated Glomerular Filtration Rate [...] #### 2 4321-2, , 2776-05 ####[facility]ITALCLIA [id number] [place] [address] [place] Glucose [Mass/Vol] 125 mg/dL High 74-99 [facility] Comment on above: Order Comment: Shira feldman Type: BLOOD SPECIMENOrdering Facility: [facility] Address: [address] [place], [place] [id number] Result Comment: The [place] Diabetes Association (ADA) provides guidance for cutoff [...] Standards of Medical Care in Diabetes 2016, [place] [employer]. Diabetes Care. 2016.39(Suppl 1). Performed By: #### 2 4321-2, , 2776-05 ####[facility]ITALCLIA [id number] [place] [address] [place] Potassium [Moles/Vol] 4.4 mmol/L Normal 3.7-5.1 [facility] Comment on above: Order Comment: Shira feldman Type: BLOOD SPECIMENOrdering Facility: [facility] Address: [address] [id number] Performed By: #### 2 4321-2, , 2776-05 ####[facility]ORATORYCLIA [id number] [place] [address] [place] Sodium [Moles/Vol] 143 mmol/L Normal 136-144 [facility] Comment on above: Order Comment: Shira feldman Type: BLOOD SPECIMENOrdering Facility: [facility] Address: [address] [address] Performed By: #### 2 4321-2, 92234-1, 2777-1 ####[facility] LABORATORYCLIA [id number] [place] [address] [place] Urea nitrogen [Mass/Vol] 33 mg/dL High 9-24 [facility] Comment on above: Order Comment: Speci men Type: BLOOD SPECIMENOrdering Facility: [facility] Address: [address] [place] [address] Performed By: #### 2 4321-2, , 2776-05 ####[facility]ORATORYCLIA [id number] [address] [place] CASE MANAGEMon 07-18-2021 CASE MANAGEM Normal [facility] CBC W Auto Differential pane l (Bld)on 07-18-2021 Basophils (Bld) [#/Vol] 0.05 10*3/uL Normal <0.11 [facility] Comment on above: Order Comment: Speci men Type: BLOOD SPECIMENOrdering Facility: [facility] Address: [address] [place] [address] Performed By: #### 5 7021-8 ####[facility]ORATORYCLIA [id number] [address] [place] Basophils/100 WBC (Bld) 0.5 % Normal [facility] Comment on above: Order Comment: Speci men Type: BLOOD SPECIMENOrdering Facility: [facility] Address: [address] [place] [address] Performed By: #### 5 7021-8 ####[facility]ORATORYCLIA [id number] [address] STATES [facility] Differential cell count method Nom (Bld) Auto Normal [facility] Comment on above: Order Comment: Speci men Type: BLOOD SPECIMENOrdering Facility: [facility] Address: [address] [place] [address] Performed By: #### 5 7021-8 ####[facility]ORATORYCLIA [id number] [address] [place] Eosinophils (Bld) [#/Vol] 0.44 10*3/uL Normal <0.46 [facility] Comment on above: Order Comment: Speci men Type: BLOOD SPECIMENOrdering Facility: [facility] Address: [address] [place] [address] Performed By: #### 5 7021-8 ####[facility] LABORATORYCLIA [id number] [address] Eosinophils/100 WBC (Bld) 4.3 % Normal [facility] Comment on above: Order Comment: Speci men Type: BLOOD SPECIMENOrdering Facility: [facility] Address: [address] [place] [address] Performed By: #### 5 7021-8 ####[facility] LABORATORYCLIA [id number] [address] Erythrocyte distribution width (RBC) [Ratio] 16.6 % High 11.5-15.0 [facility] Comment on above: Order Comment: Speci men Type: BLOOD SPECIMENOrdering Facility: [facility] Address: [address] [place] [address] Performed By: #### 5 7021-8 ####[facility] LABORATORYCLIA [id number] [address] [place] Hematocrit (Bld) [Volume fraction] 32.2 % Low 39.0-51.0 [facility] Comment on above: Order Comment: Speci men Type: BLOOD SPECIMENOrdering Facility: [facility] Address: [address] [place] [address] Performed By: #### 5 7021-8 ####[facility] LABORATORYCLIA [id number] [address] Hemoglobin (Bld) [Mass/Vol] 9.5 g/dL Low 13.0-17.0 [facility] Comment on above: Order Comment: Speci men Type: BLOOD SPECIMENOrdering Facility: [facility] Address: [address] [place] [address] Performed By: #### 5 7021-8 ####[facility] LABORATORYCLIA [id number] [address] IMMATURE GRAN % 0.4 % Normal [facility] Comment on above: Order Comment: Speci men Type: BLOOD SPECIMENOrdering Facility: [facility] Address: [address] [place] [address] Performed By: #### 5 7021-8 ####[facility]ORATORYCLIA [id number] [address] IMMATURE GRAN ABS 0.04 k/uL Normal <0.10 [facility] Comment on above: Order Comment: Speci men Type: BLOOD SPECIMENOrdering Facility: [facility] Address: [address] [place] [address] Performed By: #### 5 7021-8 ####[facility] LABORATORYCLIA [id number] [address] Lymphocytes (Bld) [#/Vol] 1.71 10*3/uL Normal 1.00-4.00 [facility] Comment on above: Order Comment: Speci men Type: BLOOD SPECIMENOrdering Facility: [facility] Address: [address] [place] [address] Performed By: #### 5 7021-8 ####[facility]ORATORYCLIA [id number] [address] Lymphocytes/100 WBC (Bld) 16.9 % Normal [facility] Comment on above: Order Comment: Speci men Type: BLOOD SPECIMENOrdering Facility: [facility] Address: [address] [place] [address] Performed By: #### 5 7021-8 ####[facility]ATORYCLIA [id number] [address] [place] MCH (RBC) [Entitic mass] 27.9 pg Normal 26.0-34.0 [facility] Comment on above: Order Comment: Speci men Type: BLOOD SPECIMENOrdering Facility: [facility] Address: [address] [place] [address] Performed By: #### 5 7021-8 ####[facility] LABORATORYCLIA [id number] [address] MCHC (RBC) [Mass/Vol] 29.5 g/dL Low 30.5-36.0 [facility] Comment on above: Order Comment: Speci men Type: BLOOD SPECIMENOrdering Facility: [facility] Address: [address] [place] [address] Performed By: #### 5 7021-8 ####[facility] LABORATORYCLIA [id number] [address] MCV (RBC) [Entitic vol] 94.7 fL Normal 80.0-100.0 [facility] Comment on above: Order Comment: Speci men Type: BLOOD SPECIMENOrdering Facility: [facility] Address: [address] [place] [address] Performed By: #### 5 7021-8 ####[facility] LABORATORYCLIA [id number] [address] Monocytes (Bld) [#/Vol] 0.69 10*3/uL Normal <0.87 [facility] Comment on above: Order Comment: Speci men Type: BLOOD SPECIMENOrdering Facility: [facility] Address: [address] [place] [address] Performed By: #### 5 7021-8 ####[facility]ORATORYCLIA [id number] [address] Monocytes/100 WBC (Bld) 6.8 % Normal [facility] Comment on above: Order Comment: Speci men Type: BLOOD SPECIMENOrdering Facility: [facility] Address: [address] [place] [address] Performed By: #### 5 7021-8 ####[facility] LABORATORYCLIA [id number] [place] [address] [place] Neutrophils (Bld) [#/Vol] 7.19 10*3/uL Normal 1.45-7.50 [facility] Comment on above: Order Comment: Speci men Type: BLOOD SPECIMENOrdering Facility: [facility] Address: [address] [place] [address] Performed By: #### 5 7021-8 ####[facility]ORATORYCLIA [id number] [address] [place] Neutrophils/100 WBC (Bld) 71.1 % Normal [facility] Comment on above: Order Comment: Speci men Type: BLOOD SPECIMENOrdering Facility: [facility] Address: [address] [place] [address] Performed By: #### 5 7021-8 ####[facility]ORATORYCLIA [id number] [address] [place] Nucleated RBC (Bld) [#/Vol] 10*3/uL Normal <0.01 [facility] Comment on above: Order Comment: Speci men Type: BLOOD SPECIMENOrdering Facility: [facility] Address: [address] [place] [address] Performed By: #### 5 7021-8 ####[facility] LABORATORYCLIA [id number] [address] [place] Nucleated RBC/100 WBC (Bld) [Ratio] 0.0 /100 WBC Normal [facility] Comment on above: Order Comment: Speci men Type: BLOOD SPECIMENOrdering Facility: [facility] Address: [address] [place] [address] Performed By: #### 5 7021-8 ####[facility] LABORATORYCLIA [id number] [address] [place] Platelet mean volume (Bld) [Entitic vol] 10.3 fL Normal 9.0-12.7 [facility] Comment on above: Order Comment: Speci men Type: BLOOD SPECIMENOrdering Facility: [facility] Address: [address] [place] [address] Performed By: #### 5 7021-8 ####[facility] LABORATORYCLIA [id number] [address] OF [facility] Platelets (Bld) [#/Vol] 403 10*3/uL High 150-400 [facility] Comment on above: Order Comment: Speci men Type: BLOOD SPECIMENOrdering Facility: [facility] Address: [address] [place] [address] Performed By: #### 5 7021-8 ####[facility] LABORATORYCLIA [id number] [address] STATES OF [facility] RBC (Bld) [#/Vol] 3.40 10*6/uL Low 4.20-6.00 [facility] Comment on above: Order Comment: Speci men Type: BLOOD SPECIMENOrdering Facility: [facility] Address: [address] [place] [address] Performed By: #### 5 7021-8 ####[facility] LABORATORYCLIA [id number] [address] OF [facility] WBC (Bld) [#/Vol] 10.12 10*3/uL Normal 3.70-11.00 [facility] Comment on above: Order Comment: Speci men Type: BLOOD SPECIMENOrdering Facility: [facility] Address: [address] [place] [address] Performed By: #### 5 7021-8 ####[facility] LABORATORYCLIA [id number] [address] OF [facility] Magnesium SerPl-mCncon 07-18 Magnesium [Mass/Vol] 2.4 mg/dL High 1.7-2.3 [facility] Comment on above: Order Comment: Speci men Type: BLOOD SPECIMENOrdering Facility: [facility] Address: [address] [place] [address] Performed By: #### 2 4321-2, 42928-5, 2777-1 ####[facility]ORATORYCLIA [id number] [address] [place] NURSING PROGon 07-18-2021 NURSING PROG Normal [facility] NURSING PROG Normal [facility] Phosphate SerPl-mCncon 07-18 Phosphate [Mass/Vol] 3.9 mg/dL Normal 2.7-4.8 [facility] Comment on above: Order Comment: Speci men Type: BLOOD SPECIMENOrdering Facility: [facility] Address: [address] [place] [address] Performed By: #### 2 4321-2, 01946-8, 2777-1 ####[facility]ORATORYCLIA [id number] [address] THERAPY NTon 07-18-2021 THERAPY NT Normal [facility] aPTT PPPon 07-18-2021 aPTT Coag (PPP) [Time] 52.3 s High 23.0-32.4 [facility] Comment on above: Order Comment: Speci men Type: BLOOD SPECIMENOrdering Facility: [facility] Address: [address] [place] [address] Performed By: #### 1 4979-9 ####[facility]ORATORYCLIA [id number] [address] CBC W Auto Differential pane l (Bld)on 07-17-2021 Basophils (Bld) [#/Vol] 0.05 10*3/uL Normal <0.11 [facility] Comment on above: Order Comment: Speci men Type: BLOOD SPECIMENOrdering Facility: [facility] Address: [address] [place] [address] Performed By: #### 5 7021-8 ####[facility]ATORYCLIA [id number] [address] Basophils/100 WBC (Bld) 0.5 % Normal [facility] Comment on above: Order Comment: Speci men Type: BLOOD SPECIMENOrdering Facility: [facility] Address: [address] [place] [address] Performed By: #### 5 7021-8 ####[facility]ORATORYCLIA [id number] [address] Differential cell count method Nom (Bld) Auto Normal [facility] Comment on above: Order Comment: Speci men Type: BLOOD SPECIMENOrdering Facility: [facility] Address: [address] [place] [address] Performed By: #### 5 7021-8 ####[facility]ORATORYCLIA [id number] [address] [place] Eosinophils (Bld) [#/Vol] 0.32 10*3/uL Normal <0.46 [facility] Comment on above: Order Comment: Speci men Type: BLOOD SPECIMENOrdering Facility: [facility] Address: [address] [place] [address] Performed By: #### 5 7021-8 ####[facility] LABORATORYCLIA [id number] [address] Eosinophils/100 WBC (Bld) 3.4 % Normal [facility] Comment on above: Order Comment: Speci men Type: BLOOD SPECIMENOrdering Facility: [facility] Address: [address] [place] [address] Performed By: #### 5 7021-8 ####[facility] LABORATORYCLIA [id number] [address] [place] Erythrocyte distribution width (RBC) [Ratio] 16.6 % High 11.5-15.0 [facility] Comment on above: Order Comment: Speci men Type: BLOOD SPECIMENOrdering Facility: [facility] Address: [address] [place] [address] Performed By: #### 5 7021-8 ####[facility] LABORATORYCLIA [id number] [address] Hematocrit (Bld) [Volume fraction] 30.7 % Low 39.0-51.0 [facility] Comment on above: Order Comment: Speci men Type: BLOOD SPECIMENOrdering Facility: [facility] Address: [address] [address] Performed By: #### 5 7021-8 ####[facility]ORATORYCLIA [id number] [address] [place] Hemoglobin (Bld) [Mass/Vol] 9.0 g/dL Low 13.0-17.0 [facility] Comment on above: Order Comment: Speci men Type: BLOOD SPECIMENOrdering Facility: [facility] Address: [address] [place] [address] Performed By: #### 5 7021-8 ####[facility] LABORATORYCLIA [id number] [address] IMMATURE GRAN % 0.6 % Normal [facility] Comment on above: Order Comment: Speci men Type: BLOOD SPECIMENOrdering Facility: [facility] Address: [address] [place] [address] Performed By: #### 5 7021-8 ####[facility] LABORATORYCLIA [id number] [address] IMMATURE GRAN ABS 0.06 k/uL Normal <0.10 [facility] Comment on above: Order Comment: Speci men Type: BLOOD SPECIMENOrdering Facility: [facility] Address: [address] [place] [address] Performed By: #### 5 7021-8 ####[facility] LABORATORYCLIA [id number] [address] [place] Lymphocytes (Bld) [#/Vol] 1.61 10*3/uL Normal 1.00-4.00 [facility] Comment on above: Order Comment: Speci men Type: BLOOD SPECIMENOrdering Facility: [facility] Address: [address] [place] [address] Performed By: #### 5 7021-8 ####[facility]ATORYCLIA [id number] [address] [place] Lymphocytes/100 WBC (Bld) 17.3 % Normal [facility] Comment on above: Order Comment: Speci men Type: BLOOD SPECIMENOrdering Facility: [facility] Address: [address] [place] [address] Performed By: #### 5 7021-8 ####[facility] LABORATORYCLIA [id number] [address] MCH (RBC) [Entitic mass] 26.9 pg Normal 26.0-34.0 [facility] Comment on above: Order Comment: Speci men Type: BLOOD SPECIMENOrdering Facility: [facility] Address: [address] [place] [address] Performed By: #### 5 7021-8 ####[facility] LABORATORYCLIA [id number] [address] MCHC (RBC) [Mass/Vol] 29.3 g/dL Low 30.5-36.0 [facility] Comment on above: Order Comment: Speci men Type: BLOOD SPECIMENOrdering Facility: [facility] Address: [address] [place] [address] Performed By: #### 5 7021-8 ####[facility] LABORATORYCLIA [id number] [address] MCV (RBC) [Entitic vol] 91.9 fL Normal 80.0-100.0 [facility] Comment on above: Order Comment: Speci men Type: BLOOD SPECIMENOrdering Facility: [facility] Address: [address] [place] [address] Performed By: #### 5 7021-8 ####[facility] LABORATORYCLIA [id number] [address] Monocytes (Bld) [#/Vol] 0.61 10*3/uL Normal <0.87 [facility] Comment on above: Order Comment: Speci men Type: BLOOD SPECIMENOrdering Facility: [facility] Address: [address] [place] [address] Performed By: #### 5 7021-8 ####[facility] LABORATORYCLIA [id number] [address] [place] Monocytes/100 WBC (Bld) 6.6 % Normal [facility] Comment on above: Order Comment: Speci men Type: BLOOD SPECIMENOrdering Facility: [facility] Address: [address] [place] [address] Performed By: #### 5 7021-8 ####[facility] LABORATORYCLIA [id number] [place] [address] [place] Neutrophils (Bld) [#/Vol] 6.64 10*3/uL Normal 1.45-7.50 [facility] Comment on above: Order Comment: Speci men Type: BLOOD SPECIMENOrdering Facility: [facility] Address: [address] [place] [address] Performed By: #### 5 7021-8 ####[facility] LABORATORYCLIA [id number] [address] [place] Neutrophils/100 WBC (Bld) 71.6 % Normal [facility] Comment on above: Order Comment: Speci men Type: BLOOD SPECIMENOrdering Facility: [facility] Address: [address] [place] [address] Performed By: #### 5 7021-8 ####[facility] LABORATORYCLIA [id number] [place] [address] [place] Nucleated RBC (Bld) [#/Vol] 10*3/uL Normal <0.01 [facility] Comment on above: Order Comment: Speci men Type: BLOOD SPECIMENOrdering Facility: [facility] Address: [address] [place] [address] Performed By: #### 5 7021-8 ####[facility]ATORYCLIA [id number] [address] [place] Nucleated RBC/100 WBC (Bld) [Ratio] 0.0 /100 WBC Normal [facility] Comment on above: Order Comment: Speci men Type: BLOOD SPECIMENOrdering Facility: [facility] Address: [address] [place] [address] Performed By: #### 5 7021-8 ####[facility] LABORATORYCLIA [id number] [address] [place] Platelet mean volume (Bld) [Entitic vol] 10.1 fL Normal 9.0-12.7 [facility] Comment on above: Order Comment: Speci men Type: BLOOD SPECIMENOrdering Facility: [facility] Address: [address] [place] [address] Performed By: #### 5 7021-8 ####[facility] LABORATORYCLIA [id number] [place] [address] [place] Platelets (Bld) [#/Vol] 387 10*3/uL Normal 150-400 [facility] Comment on above: Order Comment: Speci men Type: BLOOD SPECIMENOrdering Facility: [facility] Address: [address] [place] [address] Performed By: #### 5 7021-8 ####[facility] LABORATORYCLIA [id number] [place] [address] [place] RBC (Bld) [#/Vol] 3.34 10*6/uL Low 4.20-6.00 [facility] Comment on above: Order Comment: Speci men Type: BLOOD SPECIMENOrdering Facility: [facility] Address: [address] [place] [address] Performed By: #### 5 7021-8 ####[facility] LABORATORYCLIA [id number] [place] [address] [place] WBC (Bld) [#/Vol] 9.29 10*3/uL Normal 3.70-11.00 [facility] Comment on above: Order Comment: Speci men Type: BLOOD SPECIMENOrdering Facility: [facility] Address: [address] [place], [place] [address] Performed By: #### 5 7021-8 ####[facility] LABORATORYCLIA [id number] [address] [place] CONSULT PROGon 07-17-2021 CONSULT PROG Normal [facility] Magnesium SerPl-ncon 07-17 Magnesium [Mass/Vol] 2.3 mg/dL Normal 1.7-2.3 [facility] Comment on above: Order Comment: Speci men Type: BLOOD SPECIMENOrdering Facility: [facility] Address: [address] [place] [address] Performed By: #### 2 777-1, ####[facility] LABORATORYCLIA [id number] [address] NURSING PROGon 07-17-2021 NURSING PROG Normal [facility] NURSING PROG Normal [facility] NURSING PROG Normal [facility] Phosphate SerPl-mCncon 07-17 Phosphate [Mass/Vol] 3.6 mg/dL Normal 2.7-4.8 [facility] Comment on above: Order Comment: Speci men Type: BLOOD SPECIMENOrdering Facility: [facility] Address: [address] [place] [address] Performed By: #### 2 777-1, ####[facility] LABORATORYCLIA [id number] [address] aPTT PPPon 07-17-2021 aPTT Coag (PPP) [Time] 57.2 s High 23.0-32.4 [facility] Comment on above: Order Comment: Speci men Type: BLOOD SPECIMENOrdering Facility: [facility] Address: [address] [place] [address] Performed By: #### 1 4979-9 ####[facility] LABORATORYCLIA [id number] [place] [address] [place] Basic metabolic 2000 panelon 07-16-2021 Anion gap [Moles/Vol] 5 mmol/L Low 9-18 [facility] Comment on above: Order Comment: Speci men Type: BLOOD SPECIMENOrdering Facility: [facility] Address: [address] [place] [address] Performed By: #### 2 777-1, , ####[facility] LABORATORYCLIA [id number] [place] [address] [place] Calcium [Mass/Vol] 9.1 mg/dL Normal 8.5-10.2 [facility] Comment on above: Order Comment: Speci men Type: BLOOD SPECIMENOrdering Facility: [facility] Address: [address] [place] [address] Performed By: #### 2 777-1, , ####[facility] LABORATORYCLIA [id number] [place] [address] [place] Chloride [Moles/Vol] 101 mmol/L Normal 97-105 [facility] Comment on above: Order Comment: Speci men Type: BLOOD SPECIMENOrdering Facility: [facility] Address: [address] [place] [address] Performed By: #### 2 777-1, , ####[facility] LABORATORYCLIA [id number] [place] [address] [place] CO2 [Moles/Vol] 35 mmol/L High 22-30 [facility] Comment on above: Order Comment: Speci men Type: BLOOD SPECIMENOrdering Facility: [facility] Address: [address] [place] [address] Performed By: #### 2 777-1, , ####[facility] LABORATORYCLIA [id number] [place] [address] [place] Creatinine [Mass/Vol] 0.73 mg/dL Normal 0.73-1.22 [facility] Comment on above: Order Comment: Speci men Type: BLOOD SPECIMENOrdering Facility: [facility] Address: [address] [place] [address] Performed By: #### 2 777-1, , ####[facility] LABORATORYCLIA [id number] [address] [place] ESTIMATED GLOMERULAR FILTRATION RATE 98 mL/min/1.73m??? Normal >=60 [facility] Comment on above: Order Comment: Shira feldman Type: BLOOD SPECIMENOrdering Facility: [facility] Address: [address] [place] [address] Result Comment: Luzmaria mated Glomerular Filtration Rate [...] actual GFR. Performed By: #### 2 777-1, 63352-1, ####[facility]ITALCLIA [id number] [place] [address] [place] Glucose [Mass/Vol] 133 mg/dL High 74-99 [facility] Comment on above: Order Comment: Shira feldman Type: BLOOD SPECIMENOrdering Facility: [facility] Address: [address] [place] [address] Result Comment: The [place] [employer] (ADA) provides guidance for cutoff [...] Standards of Medical Care in Diabetes 2016, [place] [employer]. Diabetes Care. 2016.39(Suppl 1). Performed By: #### 2 777-1, 20238-8, 92618-0 ####[facility] LABORATORYCLIA [id number] [place] [id number] [place] Potassium [Moles/Vol] 4.2 mmol/L Normal 3.7-5.1 [facility] Comment on above: Order Comment: Speci men Type: BLOOD SPECIMENOrdering Facility: [facility] Address: [address] [place] [address] Performed By: #### 2 777-1, 01318-6, 53199-9 ####[facility] LABORATORYCLIA [id number] [address] STATES [place] [facility] Sodium [Moles/Vol] 141 mmol/L Normal 136-144 [facility] Comment on above: Order Comment: Speci men Type: BLOOD SPECIMENOrdering Facility: [facility] Address: [address] [place] [address] Performed By: #### 2 777-1, 49358-9, ####[facility]ORATORYCLIA [id number] [address] [place] Urea nitrogen [Mass/Vol] 21 mg/dL Normal 9-24 [facility] Comment on above: Order Comment: Speci men Type: BLOOD SPECIMENOrdering Facility: [facility] Address: [address] [place] [address] Performed By: #### 2 777-1, 94694-1, ####[facility] LABORATORYCLIA [id number] [address] [place] CBC W Auto Differential pane l (Bld)on 07-16-2021 Basophils (Bld) [#/Vol] 0.06 10*3/uL Normal <0.11 [facility] Comment on above: Order Comment: Speci men Type: BLOOD SPECIMENOrdering Facility: [facility] Address: [address] [place] [address] Performed By: #### 5 7021-8 ####[facility] LABORATORYCLIA [id number] [address] Basophils/100 WBC (Bld) 0.7 % Normal [facility] Comment on above: Order Comment: Speci men Type: BLOOD SPECIMENOrdering Facility: [facility] Address: [address] [place] [address] Performed By: #### 5 7021-8 ####[facility] LABORATORYCLIA [id number] [address] Differential cell count method Nom (Bld) Auto Normal [facility] Comment on above: Order Comment: Speci men Type: BLOOD SPECIMENOrdering Facility: [facility] Address: [address] [place] [address] Performed By: #### 5 7021-8 ####[facility]ORYCLIA [id number] [address] Eosinophils (Bld) [#/Vol] 0.35 10*3/uL Normal <0.46 [facility] Comment on above: Order Comment: Speci men Type: BLOOD SPECIMENOrdering Facility: [facility] Address: [address] [place] [address] Performed By: #### 5 7021-8 ####[facility] LABORATORYCLIA [id number] [address] Eosinophils/100 WBC (Bld) 3.9 % Normal [facility] Comment on above: Order Comment: Speci men Type: BLOOD SPECIMENOrdering Facility: [facility] Address: [address] [place] [address] Performed By: #### 5 7021-8 ####[facility] LABORATORYCLIA [id number] [address] Erythrocyte distribution width (RBC) [Ratio] 16.5 % High 11.5-15.0 [facility] Comment on above: Order Comment: Speci men Type: BLOOD SPECIMENOrdering Facility: [facility] Address: [address] [place] [address] Performed By: #### 5 7021-8 ####[facility] LABORATORYCLIA [id number] [address] Hematocrit (Bld) [Volume fraction] 30.9 % Low 39.0-51.0 [facility] Comment on above: Order Comment: Speci men Type: BLOOD SPECIMENOrdering Facility: [facility] Address: [address] [place] [address] Performed By: #### 5 7021-8 ####[facility]ORYCLIA [id number] [address] [place] Hemoglobin (Bld) [Mass/Vol] 9.1 g/dL Low 13.0-17.0 [facility] Comment on above: Order Comment: Speci men Type: BLOOD SPECIMENOrdering Facility: [facility] Address: [address] [place] [address] Performed By: #### 5 7021-8 ####[facility] LABORATORYCLIA [id number] [address] IMMATURE GRAN % 0.4 % Normal [facility] Comment on above: Order Comment: Speci men Type: BLOOD SPECIMENOrdering Facility: [facility] Address: [address] [place] [address] Performed By: #### 5 7021-8 ####[facility] LABORATORYCLIA [id number] [address] IMMATURE GRAN ABS 0.04 k/uL Normal <0.10 [facility] Comment on above: Order Comment: Speci men Type: BLOOD SPECIMENOrdering Facility: [facility] Address: [address] [place] [address] Performed By: #### 5 7021-8 ####[facility] LABORATORYCLIA [id number] [address] [place] Lymphocytes (Bld) [#/Vol] 1.35 10*3/uL Normal 1.00-4.00 [facility] Comment on above: Order Comment: Speci men Type: BLOOD SPECIMENOrdering Facility: [facility] Address: [address] [place] [address] Performed By: #### 5 7021-8 ####[facility]ORATORYCLIA [id number] [address] Lymphocytes/100 WBC (Bld) 15.0 % Normal [facility] Comment on above: Order Comment: Speci men Type: BLOOD SPECIMENOrdering Facility: [facility] Address: [address] [place] [address] Performed By: #### 5 7021-8 ####[facility] LABORATORYCLIA [id number] [address] MCH (RBC) [Entitic mass] 27.1 pg Normal 26.0-34.0 [facility] Comment on above: Order Comment: Speci men Type: BLOOD SPECIMENOrdering Facility: [facility] Address: [address] [place] [address] Performed By: #### 5 7021-8 ####[facility] LABORATORYCLIA [id number] [address] STATES [facility] MCHC (RBC) [Mass/Vol] 29.4 g/dL Low 30.5-36.0 [facility] Comment on above: Order Comment: Speci men Type: BLOOD SPECIMENOrdering Facility: [facility] Address: [address] [place] [address] Performed By: #### 5 7021-8 ####[facility] LABORATORYCLIA [id number] [address] MCV (RBC) [Entitic vol] 92.0 fL Normal 80.0-100.0 [facility] Comment on above: Order Comment: Speci men Type: BLOOD SPECIMENOrdering Facility: [facility] Address: [address] [place] [address] Performed By: #### 5 7021-8 ####[facility] LABORATORYCLIA [id number] [address] Monocytes (Bld) [#/Vol] 0.53 10*3/uL Normal <0.87 [facility] Comment on above: Order Comment: Speci men Type: BLOOD SPECIMENOrdering Facility: [facility] Address: [address] [place] [address] Performed By: #### 5 7021-8 ####[facility] LABORATORYCLIA [id number] [address] [place] Monocytes/100 WBC (Bld) 5.9 % Normal [facility] Comment on above: Order Comment: Speci men Type: BLOOD SPECIMENOrdering Facility: [facility] Address: [address] [place] [address] Performed By: #### 5 7021-8 ####[facility] LABORATORYCLIA [id number] [place] [address] [place] Neutrophils (Bld) [#/Vol] 6.67 10*3/uL Normal 1.45-7.50 [facility] Comment on above: Order Comment: Speci men Type: BLOOD SPECIMENOrdering Facility: [facility] Address: [address] [place] [address] Performed By: #### 5 7021-8 ####[facility] LABORATORYCLIA [id number] [address] [place] Neutrophils/100 WBC (Bld) 74.1 % Normal [facility] Comment on above: Order Comment: Speci men Type: BLOOD SPECIMENOrdering Facility: [facility] Address: [address] [place] [address] Performed By: #### 5 7021-8 ####[facility] LABORATORYCLIA [id number] [place] [address] [place] Nucleated RBC (Bld) [#/Vol] 10*3/uL Normal <0.01 [facility] Comment on above: Order Comment: Speci men Type: BLOOD SPECIMENOrdering Facility: [facility] Address: [address] [place] [address] Performed By: #### 5 7021-8 ####[facility] LABORATORYCLIA [id number] [address] [place] Nucleated RBC/100 WBC (Bld) [Ratio] 0.0 /100 WBC Normal [facility] Comment on above: Order Comment: Speci men Type: BLOOD SPECIMENOrdering Facility: [facility] Address: [address] [place] [address] Performed By: #### 5 7021-8 ####[facility] LABORATORYCLIA [id number] [address] [place] Platelet mean volume (Bld) [Entitic vol] 9.9 fL Normal 9.0-12.7 [facility] Comment on above: Order Comment: Speci men Type: BLOOD SPECIMENOrdering Facility: [facility] Address: [address] [place] [address] Performed By: #### 5 7021-8 ####[facility] LABORATORYCLIA [id number] [place] [address] [place] Platelets (Bld) [#/Vol] 391 10*3/uL Normal 150-400 [facility] Comment on above: Order Comment: Speci men Type: BLOOD SPECIMENOrdering Facility: [facility] Address: [address] [place] [address] Performed By: #### 5 7021-8 ####[facility] LABORATORYCLIA [id number] [place] [address] [place] RBC (Bld) [#/Vol] 3.36 10*6/uL Low 4.20-6.00 [facility] Comment on above: Order Comment: Speci men Type: BLOOD SPECIMENOrdering Facility: [facility] Address: [address] [place] [address] Performed By: #### 5 7021-8 ####[facility] LABORATORYCLIA [id number] [place] [address] [place] WBC (Bld) [#/Vol] 9.00 10*3/uL Normal 3.70-11.00 [facility] Comment on above: Order Comment: Speci men Type: BLOOD SPECIMENOrdering Facility: [facility] Address: [address] [place] [address] Performed By: #### 5 7021-8 ####[facility] LABORATORYCLIA [id number] [address] [place] CONSULT PROGon 07-16-2021 CONSULT PROG Normal [facility] CONSULT PROG Normal [facility] Magnesium SerPl-mCncon 07-16 Magnesium [Mass/Vol] 2.3 mg/dL Normal 1.7-2.3 [facility] Comment on above: Order Comment: Speci men Type: BLOOD SPECIMENOrdering Facility: [facility] Address: [address] [place] [address] Performed By: #### 2 777-1, 37500-5, 48545-1 ####[facility] LABORATORYCLIA [id number] [address] [place] NURSING PROGon 07-16-2021 NURSING PROG Normal [facility] Phosphate SerPl-mCncon 07-16 Phosphate [Mass/Vol] 3.6 mg/dL Normal 2.7-4.8 [facility] Comment on above: Order Comment: Speci men Type: BLOOD SPECIMENOrdering Facility: [facility] Address: [address] [place] [address] Performed By: #### 2 777-1, 74293-0, 43437-7 ####[facility] LABORATORYCLIA [id number] [address] [place] Vancomycin random [Mass/Vol] on 07-16-2021 Vancomycin [Mass/Vol] 16.9 ug/mL Normal 10.0-20.0 [facility] Comment on above: Order Comment: Speci men Type: BLOOD SPECIMENOrdering Facility: [facility] Address: [address] [place] [address] Result Comment: Refe rence ranges and high/low indicator flags are provided as general guidelines only. The treating physician must determine appropriate target levels/dosing based on the specific clinical situation. Performed By: #### [id number] ####[facility] LABORATORYCLIA [id number] [address] [place] aPTT PPPon 07-16-2021 aPTT Coag (PPP) [Time] 57.2 s High 23.0-32.4 [facility] Comment on above: Order Comment: Speci men Type: BLOOD SPECIMENOrdering Facility: [facility] Address: [address] [place] [address] Performed By: #### 1 4979-9 ####[facility] LABORATORYCLIA [id number] [place] [address] [place] ALLIED HEALTHon 07-15-2021 ALLIED HEALTH Normal [facility] Basic metabolic 2000 panelon 07-15-2021 Anion gap [Moles/Vol] 11 mmol/L Normal 9-18 [facility] Comment on above: Order Comment: Speci men Type: BLOOD SPECIMENOrdering Facility: [facility] Address: [address] [place] [address] Performed By: #### 2 4321-2, , 2776-05 ####[facility] LABORATORYCLIA [id number] [place] [address] [place] Calcium [Mass/Vol] 8.8 mg/dL Normal 8.5-10.2 [facility] Comment on above: Order Comment: Speci men Type: BLOOD SPECIMENOrdering Facility: [facility] Address: [address] [place] [address] Performed By: #### 2 4321-2, , 2776-05 ####[facility] LABORATORYCLIA [id number] [place] [address] [place] Chloride [Moles/Vol] 101 mmol/L Normal 97-105 [facility] Comment on above: Order Comment: Speci men Type: BLOOD SPECIMENOrdering Facility: [facility] Address: [address] [place], [place] [address] Performed By: #### 2 4321-2, , 2776-05 ####[facility] LABORATORYCLIA [id number] [place] [address] [place] CO2 [Moles/Vol] 31 mmol/L High 22-30 [facility] Comment on above: Order Comment: Speci men Type: BLOOD SPECIMENOrdering Facility: [facility] Address: [address] [place], [place] [address] Performed By: #### 2 4321-2, 90577-7, 2776-05 ####[facility]ITAL[facility]IA [id number] [place] [id number] [place] [facility] Creatinine [Mass/Vol] 0.76 mg/dL Normal 0.73-1.22 [facility] Comment on above: Order Comment: Speccara feldman Type: BLOOD SPECIMENOrdering Facility: [facility] Address: [address] [address] Performed By: #### 2 4321-2, , 2776-05 ####[facility]ITAL[facility]IA [id number] [place] [id number] [facility] ESTIMATED GLOMERULAR FILTRATION RATE 97 mL/min/1.73m??? Normal >=60 [facility] Comment on above: Order Comment: Speccara feldman Type: BLOOD SPECIMENOrdering Facility: [facility] Address: [address] [address] Result Comment: Luzmaria mated Glomerular Filtration Rate [...] 2 4321-2, , 2776-05 ####[facility] LABORATORYCLIA [id number] [place] [id number] [place] Glucose [Mass/Vol] 115 mg/dL High 74-99 [facility] Comment on above: Order Comment: Speci men Type: BLOOD SPECIMENOrdering Facility: [facility] Address: [address] Result Comment: The [place] [employer] (ADA) provides guidance for cutoff [...] Standards of Medical Care in Diabetes 2016, [place] [employer]. Diabetes Care. 2016.39(Suppl 1). Performed By: #### 2 4321-2, , 2776-05 ####[facility] LABORATORYCLIA [id number] [place] [address] [place] Potassium [Moles/Vol] 4.0 mmol/L Normal 3.7-5.1 [facility] Comment on above: Order Comment: Shira feldman Type: BLOOD SPECIMENOrdering Facility: [facility] Address: [address] [place] [address] Performed By: #### 2 432-2, , 2776-05 ####[facility] LABORATORYCLIA [id number] [address] [place] Sodium [Moles/Vol] 143 mmol/L Normal 136-144 [facility] Comment on above: Order Comment: Shira feldman Type: BLOOD SPECIMENOrdering Facility: [facility] Address: [address] [place] [address] Performed By: #### 2 4321-2, , 2776-05 ####[facility] LABORATORYCLIA [id number] [place] [address] [place] Urea nitrogen [Mass/Vol] 17 mg/dL Normal 9-24 [facility] Comment on above: Order Comment: Johni francia Type: BLOOD SPECIMENOrdering Facility: [facility] Address: [address] [place] [address] Performed By: #### 2 4321-2, , 2776-05 ####[facility] LABORATORYCLIA [id number] [place] [address] [place] CASE MANAGEMon 07-15-2021 CASE MANAGEM Normal [facility] CBC panel Auto (Bld)on 07-15 Erythrocyte distribution width (RBC) [Ratio] 16.4 % High 11.5-15.0 [facility] Comment on above: Order Comment: Speci men Type: BLOOD SPECIMENOrdering Facility: [facility] Address: [address] [place] [address] Performed By: #### 5 8410-2 ####[facility] LABORATORYCLIA [id number] [address] Hematocrit (Bld) [Volume fraction] 30.3 % Low 39.0-51.0 [facility] Comment on above: Order Comment: Speci men Type: BLOOD SPECIMENOrdering Facility: [facility] Address: [address] [place] [address] Performed By: #### 5 8410-2 ####[facility] LABORATORYCLIA [id number] [address] OF [facility] Hemoglobin (Bld) [Mass/Vol] 9.2 g/dL Low 13.0-17.0 [facility] Comment on above: Order Comment: Speci men Type: BLOOD SPECIMENOrdering Facility: [facility] Address: [address] [place] [address] Performed By: #### 5 8410-2 ####[facility] LABORATORYCLIA [id number] [address] STATES OF [facility] MCH (RBC) [Entitic mass] 28.3 pg Normal 26.0-34.0 [facility] Comment on above: Order Comment: Speci men Type: BLOOD SPECIMENOrdering Facility: [facility] Address: [address] [place] [address] Performed By: #### 5 8410-2 ####[facility] LABORATORYCLIA [id number] [address] [place] MCHC (RBC) [Mass/Vol] 30.4 g/dL Low 30.5-36.0 [facility] Comment on above: Order Comment: Speci men Type: BLOOD SPECIMENOrdering Facility: [facility] Address: [address] [address] Performed By: #### 5 8410-2 ####[facility] LABORATORYCLIA [id number] [address] MCV (RBC) [Entitic vol] 93.2 fL Normal 80.0-100.0 [facility] Comment on above: Order Comment: Speci men Type: BLOOD SPECIMENOrdering Facility: [facility] Address: [address] [place] [address] Performed By: #### 5 8410-2 ####[facility] LABORATORYCLIA [id number] [address] Nucleated RBC (Bld) [#/Vol] 10*3/uL Normal <0.01 [facility] Comment on above: Order Comment: Speci men Type: BLOOD SPECIMENOrdering Facility: [facility] Address: [address] [place] [address] Performed By: #### 5 8410-2 ####[facility] LABORATORYCLIA [id number] [address] Platelet mean volume (Bld) [Entitic vol] 9.9 fL Normal 9.0-12.7 [facility] Comment on above: Order Comment: Speci men Type: BLOOD SPECIMENOrdering Facility: [facility] Address: [address] [place] [address] Performed By: #### 5 8410-2 ####[facility] LABORATORYCLIA [id number] [address] Platelets (Bld) [#/Vol] 381 10*3/uL Normal 150-400 [facility] Comment on above: Order Comment: Speci men Type: BLOOD SPECIMENOrdering Facility: [facility] Address: [address] [place] [address] Performed By: #### 5 8410-2 ####[facility] LABORATORYCLIA [id number] [place] [address] [place] RBC (Bld) [#/Vol] 3.25 10*6/uL Low 4.20-6.00 [facility] Comment on above: Order Comment: Speci men Type: BLOOD SPECIMENOrdering Facility: [facility] Address: [address] [place] [address] Performed By: #### 5 8410-2 ####[facility] LABORATORYCLIA [id number] [address] [place] WBC (Bld) [#/Vol] 8.80 10*3/uL Normal 3.70-11.00 [facility] Comment on above: Order Comment: Speci men Type: BLOOD SPECIMENOrdering Facility: [facility] Address: [address] [place] [address] Performed By: #### 5 8410-2 ####[facility] LABORATORYCLIA [id number] [address] Magnesium SerPl-mCncon 07-15 Magnesium [Mass/Vol] 2.2 mg/dL Normal 1.7-2.3 [facility] Comment on above: Order Comment: Speci men Type: BLOOD SPECIMENOrdering Facility: [facility] Address: [address] [place] [address] Performed By: #### 2 4321-2, , 2777-1 ####[facility] LABORATORYCLIA [id number] [address] [place] NURSING PROGon 07-15-2021 NURSING PROG Normal [facility] NURSING PROG Normal [facility] NURSING PROG Normal [facility] NUTRITIONon 07-15-2021 NUTRITION Normal [facility] Phosphate SerPl-mCncon 07-15 Phosphate [Mass/Vol] 3.4 mg/dL Normal 2.7-4.8 [facility] Comment on above: Order Comment: Speci men Type: BLOOD SPECIMENOrdering Facility: [facility] Address: [address] [place] [address] Performed By: #### 2 4321-2, , 2777-1 ####[facility] LABORATORYCLIA [id number] [place] [address] [place] THERAPY NTon 07-15-2021 THERAPY NT Normal [facility] US DVT UPPER LTon 07-15-2021 US DVT UPPER LT Normal [facility] XR CHEST 1V FRONTALon 2021 XR CHEST 1V FRONTAL Normal [facility] aPTT PPPon 07-15-2021 aPTT Coag (PPP) [Time] 59.9 s High 23.0-32.4 [facility] Comment on above: Order Comment: Speci men Type: BLOOD SPECIMENOrdering Facility: [facility] Address: [address] [place] [address] Performed By: #### 1 4979-9 ####[facility] LABORATORYCLIA [id number] [place] [address] [place] Basic metabolic 2000 panelon 07-14-2021 Anion gap [Moles/Vol] 9 mmol/L Normal 9-18 [facility] Comment on above: Order Comment: Speci men Type: BLOOD SPECIMENOrdering Facility: [facility] Address: [address] [place] [address] Performed By: #### 1 9123-9, 2777-, 70724-1 ####[facility] LABORATORYCLIA [id number] [place] [address] [place] Calcium [Mass/Vol] 8.5 mg/dL Normal 8.5-10.2 [facility] Comment on above: Order Comment: Speci men Type: BLOOD SPECIMENOrdering Facility: [facility] Address: [address] [place] [address] Performed By: #### 1 9123-9, 2777-, 39219-7 ####[facility] LABORATORYCLIA [id number] [place] [address] [place] Chloride [Moles/Vol] 99 mmol/L Normal 97-105 [facility] Comment on above: Order Comment: Speci men Type: BLOOD SPECIMENOrdering Facility: [facility] Address: [address] [place] [address] Performed By: #### 1 9123-9, 2777-1, 81603-3 ####[facility] [id number] [address] CO2 [Moles/Vol] 31 mmol/L High 22-30 [facility] Comment on above: Order Comment: Speci men Type: BLOOD SPECIMENOrdering Facility: [facility] Address: [address] [place] [address] Performed By: #### 1 9123-9, 2777, 59812-5 ####[facility] [id number] [address] Creatinine [Mass/Vol] 0.74 mg/dL Normal 0.73-1.22 [facility] Comment on above: Order Comment: Speci men Type: BLOOD SPECIMENOrdering Facility: [facility] Address: [address] [place] [address] Performed By: #### 1 9123-9, 2777, 37315-4 ####[facility] [id number] [address] ESTIMATED GLOMERULAR FILTRATION RATE 98 mL/min/1.73m??? Normal >=60 [facility] Comment on above: Order Comment: Speci men Type: BLOOD SPECIMENOrdering Facility: [facility] Address: [address] [place] [address] Result Comment: Luzmaria mated Glomerular Filtration Rate [...] GFR. Performed By: #### 1 9123-9, 2777-1, 00847-0 ####[facility] LABORATORYCLIA [id number] [place] [address] [place] Glucose [Mass/Vol] 117 mg/dL High 74-99 [facility] Comment on above: Order Comment: Speci men Type: BLOOD SPECIMENOrdering Facility: [facility] Address: [address] [place] [address] Result Comment: The [place] [employer] Association (ADA) provides guidance for cutoff [...] Standards of Medical Care in Diabetes 2016, [place] [employer]. Diabetes Care. 2016.39(Suppl 1). Performed By: #### 1 9123-9, 2777-, 60091-1 ####[facility] LABORATORYCLIA [id number] [place] [address] [place] Potassium [Moles/Vol] 3.7 mmol/L Normal 3.7-5.1 [facility] Comment on above: Order Comment: Shira feldman Type: BLOOD SPECIMENOrdering Facility: [facility] Address: [address] [place], [place] [address] Performed By: #### 1 9123-9, 2777-, 51904-8 ####[facility] LABORATORYCLIA [id number] [place] [address] [place] Sodium [Moles/Vol] 139 mmol/L Normal 136-144 [facility] Comment on above: Order Comment: Shira francia Type: BLOOD SPECIMENOrdering Facility: [facility] Address: [address] [place] [address] Performed By: #### 1 9123-9, 2777-1, 67779-4 ####[facility] LABORATORYCLIA [id number] [place] [address] [place] Urea nitrogen [Mass/Vol] 16 mg/dL Normal 9-24 [facility] Comment on above: Order Comment: Speci men Type: BLOOD SPECIMENOrdering Facility: [facility] Address: [address] [place] [address] Performed By: #### 1 9123-9, 2777-1, 60329-5 ####[facility] LABORATORYCLIA [id number] [address] [place] [facility] CBC panel Auto (Bld)on 07-14 Erythrocyte distribution width (RBC) [Ratio] 16.2 % High 11.5-15.0 [facility] Comment on above: Order Comment: Speci men Type: BLOOD SPECIMENOrdering Facility: [facility] Address: [address] [place] [address] Performed By: #### 5 8410-2 ####[facility] LABORATORYCLIA [id number] [address] [place] Hematocrit (Bld) [Volume fraction] 29.7 % Low 39.0-51.0 [facility] Comment on above: Order Comment: Speci men Type: BLOOD SPECIMENOrdering Facility: [facility] Address: [address] [place] [address] Performed By: #### 5 8410-2 ####[facility] LABORATORYCLIA [id number] [address] [place] [facility] Hemoglobin (Bld) [Mass/Vol] 8.8 g/dL Low 13.0-17.0 [facility] Comment on above: Order Comment: Speci men Type: BLOOD SPECIMENOrdering Facility: [facility] Address: [address] [place] [address] Performed By: #### 5 8410-2 ####[facility] LABORATORYCLIA [id number] [address] [place] MCH (RBC) [Entitic mass] 27.5 pg Normal 26.0-34.0 [facility] Comment on above: Order Comment: Speci men Type: BLOOD SPECIMENOrdering Facility: [facility] Address: [address] [place] [address] Performed By: #### 5 8410-2 ####[facility] LABORATORYCLIA [id number] [address] MCHC (RBC) [Mass/Vol] 29.6 g/dL Low 30.5-36.0 [facility] Comment on above: Order Comment: Speci men Type: BLOOD SPECIMENOrdering Facility: [facility] Address: [address] [place] [address] Performed By: #### 5 8410-2 ####[facility] LABORATORYCLIA [id number] [address] MCV (RBC) [Entitic vol] 92.8 fL Normal 80.0-100.0 [facility] Comment on above: Order Comment: Speci men Type: BLOOD SPECIMENOrdering Facility: [facility] Address: [address] [place] [address] Performed By: #### 5 8410-2 ####[facility] LABORATORYCLIA [id number] [address] Nucleated RBC (Bld) [#/Vol] 10*3/uL Normal <0.01 [facility] Comment on above: Order Comment: Speci men Type: BLOOD SPECIMENOrdering Facility: [facility] Address: [address] [place] [address] Performed By: #### 5 8410-2 ####[facility] LABORATORYCLIA [id number] [address] Platelet mean volume (Bld) [Entitic vol] 9.6 fL Normal 9.0-12.7 [facility] Comment on above: Order Comment: Speci men Type: BLOOD SPECIMENOrdering Facility: [facility] Address: [address] [place] [address] Performed By: #### 5 8410-2 ####[facility] LABORATORYCLIA [id number] [address] Platelets (Bld) [#/Vol] 354 10*3/uL Normal 150-400 [facility] Comment on above: Order Comment: Speci men Type: BLOOD SPECIMENOrdering Facility: [facility] Address: [address] [place] [address] Performed By: #### 5 8410-2 ####[facility] LABORATORYCLIA [id number] [place] [address] [place] RBC (Bld) [#/Vol] 3.20 10*6/uL Low 4.20-6.00 [facility] Comment on above: Order Comment: Speci men Type: BLOOD SPECIMENOrdering Facility: [facility] Address: [address] [place] [address] Performed By: #### 5 8410-2 ####[facility] LABORATORYCLIA [id number] [address] WBC (Bld) [#/Vol] 9.41 10*3/uL Normal 3.70-11.00 [facility] Comment on above: Order Comment: Speci men Type: BLOOD SPECIMENOrdering Facility: [facility] Address: [address] [place] [address] Performed By: #### 5 8410-2 ####[facility] LABORATORYCLIA [id number] [address] OF [facility] CONSULT PROGon 07-14-2021 CONSULT PROG Normal [facility] Magnesium SerPl-mCncon 07-14 Magnesium [Mass/Vol] 2.2 mg/dL Normal 1.7-2.3 [facility] Comment on above: Order Comment: Speci men Type: BLOOD SPECIMENOrdering Facility: [facility] Address: [address] [place] [address] Performed By: #### 1 9123-9, 2777-1, 52349-1 ####[facility] LABORATORYCLIA [id number] [address] [place] NURSING PROGon 07-14-2021 NURSING PROG Normal [facility] Phosphate SerPl-mCncon 07-14 Phosphate [Mass/Vol] 3.6 mg/dL Normal 2.7-4.8 [facility] Comment on above: Order Comment: Speci men Type: BLOOD SPECIMENOrdering Facility: [facility] Address: [address] [place] [address] Performed By: #### 1 9123-9, 2777-1, 24418-1 ####[facility] LABORATORYCLIA [id number] [address] aPTT PPPon 07-14-2021 aPTT Coag (PPP) [Time] 62.9 s High 23.0-32.4 [facility] Comment on above: Order Comment: Speci men Type: BLOOD SPECIMENOrdering Facility: [facility] Address: [address] [place] [address] Performed By: #### 1 4979-9 ####[facility] [id number] [address] aPTT Coag (PPP) [Time] 55.2 s High 23.0-32.4 [facility] Comment on above: Order Comment: Speci men Type: BLOOD SPECIMENOrdering Facility: [facility] Address: [address] [place] [address] Performed By: #### 1 4979-9 ####[facility] [id number] [address] [place] Basic metabolic 2000 panelon 07-13-2021 Anion gap [Moles/Vol] 10 mmol/L Normal 9-18 [facility] Comment on above: Order Comment: Speci men Type: BLOOD SPECIMENOrdering Facility: [facility] Address: [address] [place] [address] Performed By: #### 1 9123-9, 2777-1, 76596-6 ####[facility] LABORATORYCLIA [id number] [address] OF [facility] Calcium [Mass/Vol] 8.5 mg/dL Normal 8.5-10.2 [facility] Comment on above: Order Comment: Speci men Type: BLOOD SPECIMENOrdering Facility: [facility] Address: [address] [place] [address] Performed By: #### 1 9123-9, 27711-04, 48228-1 ####[facility] LABORATORYCLIA [id number] [address] [place] Chloride [Moles/Vol] 98 mmol/L Normal 97-105 [facility] Comment on above: Order Comment: Speci men Type: BLOOD SPECIMENOrdering Facility: [facility] Address: [address] [place] [address] Performed By: #### 1 9123-9, 2776-05, 76385-4 ####[facility] LABORATORYCLIA [id number] [address] [place] CO2 [Moles/Vol] 32 mmol/L High 22-30 [facility] Comment on above: Order Comment: Speci men Type: BLOOD SPECIMENOrdering Facility: [facility] Address: [address] [place] [address] Performed By: #### 1 9123-9, 2776-05, ####[facility] LABORATORYCLIA [id number] [address] [place] [facility] Creatinine [Mass/Vol] 0.75 mg/dL Normal 0.73-1.22 [facility] Comment on above: Order Comment: Speci men Type: BLOOD SPECIMENOrdering Facility: [facility] Address: [address] [place] [address] Performed By: #### 1 9123-9, 27711-04, 32300-4 ####[facility] LABORATORYCLIA [id number] [address] ESTIMATED GLOMERULAR FILTRATION RATE 98 mL/min/1.73m??? Normal >=60 [facility] Comment on above: Order Comment: Speci men Type: BLOOD SPECIMENOrdering Facility: [facility] Address: [address] [place] [address] Result Comment: Luzmaria mated Glomerular Filtration Rate [...] GFR. Performed By: #### 1 9123-9, 2777-, 98498-0 ####[facility] [id number] [place] [address] [place] Glucose [Mass/Vol] 118 mg/dL High 74-99 [facility] Comment on above: Order Comment: Shira feldman Type: BLOOD SPECIMENOrdering Facility: [facility] Address: [address] [place] [address] Result Comment: The [place] [employer] (ADA) provides guidance for cutoff [...] Standards of Medical Care in Diabetes 2016, [place] [employer]. Diabetes Care. 2016.39(Suppl 1). Performed By: #### 1 9123-9, 2777-, 40493-6 ####[facility] [id number] [place] [address] [place] Potassium [Moles/Vol] 3.6 mmol/L Low 3.7-5.1 [facility] Comment on above: Order Comment: Shira feldman Type: BLOOD SPECIMENOrdering Facility: [facility] Address: [address] [place], [place] [id number] Performed By: #### 1 9123-9, 2777-, 22359-0 ####[facility] LABORATORYCLIA [id number] [place], [place] [address] [place] [address] [place] Sodium [Moles/Vol] 140 mmol/L Normal 136-144 [facility] Comment on above: Order Comment: Speci men Type: BLOOD SPECIMENOrdering Facility: [facility] Address: [address] [place] [address] Performed By: #### 1 9123-9, 2777-, 03077-2 ####[facility] LABORATORYCLIA [id number] [address] [place] Urea nitrogen [Mass/Vol] 15 mg/dL Normal 9-24 [facility] Comment on above: Order Comment: Speci men Type: BLOOD SPECIMENOrdering Facility: [facility] Address: [address] [place] [address] Performed By: #### 1 9123-9, 2777, 49630-6 ####[facility] LABORATORYCLIA [id number] [address] CASE MANAGEMon 07-13-2021 CASE MANAGEM Normal [facility] CBC panel Auto (Bld)on 07-13 Erythrocyte distribution width (RBC) [Ratio] 16.2 % High 11.5-15.0 [facility] Comment on above: Order Comment: Speci men Type: BLOOD SPECIMENOrdering Facility: [facility] Address: [address] [place] [address] Performed By: #### 5 8410-2 ####[facility] LABORATORYCLIA [id number] [address] STATES [facility] Hematocrit (Bld) [Volume fraction] 29.5 % Low 39.0-51.0 [facility] Comment on above: Order Comment: Speci men Type: BLOOD SPECIMENOrdering Facility: [facility] Address: [address] [place] [address] Performed By: #### 5 8410-2 ####[facility] LABORATORYCLIA [id number] [address] [place] Hemoglobin (Bld) [Mass/Vol] 8.9 g/dL Low 13.0-17.0 [facility] Comment on above: Order Comment: Speci men Type: BLOOD SPECIMENOrdering Facility: [facility] Address: [address] [place] [address] Performed By: #### 5 8410-2 ####[facility] LABORATORYCLIA [id number] [address] MCH (RBC) [Entitic mass] 27.8 pg Normal 26.0-34.0 [facility] Comment on above: Order Comment: Speci men Type: BLOOD SPECIMENOrdering Facility: [facility] Address: [address] [place] [address] Performed By: #### 5 8410-2 ####[facility] LABORATORYCLIA [id number] [address] MCHC (RBC) [Mass/Vol] 30.2 g/dL Low 30.5-36.0 [facility] Comment on above: Order Comment: Speci men Type: BLOOD SPECIMENOrdering Facility: [facility] Address: [address] [place] [address] Performed By: #### 5 8410-2 ####[facility] LABORATORYCLIA [id number] [address] MCV (RBC) [Entitic vol] 92.2 fL Normal 80.0-100.0 [facility] Comment on above: Order Comment: Speci men Type: BLOOD SPECIMENOrdering Facility: [facility] Address: [address] [place] [address] Performed By: #### 5 8410-2 ####[facility] LABORATORYCLIA [id number] [address] Nucleated RBC (Bld) [#/Vol] 10*3/uL Normal <0.01 [facility] Comment on above: Order Comment: Speci men Type: BLOOD SPECIMENOrdering Facility: [facility] Address: [address] Performed By: #### 5 8410-2 ####[facility] LABORATORYCLIA [id number] [address] STATES [facility] Platelet mean volume (Bld) [Entitic vol] 9.8 fL Normal 9.0-12.7 [facility] Comment on above: Order Comment: Speci men Type: BLOOD SPECIMENOrdering Facility: [facility] Address: [address] [place] [address] Performed By: #### 5 8410-2 ####[facility] LABORATORYCLIA [id number] [place] [address] [place] Platelets (Bld) [#/Vol] 356 10*3/uL Normal 150-400 [facility] Comment on above: Order Comment: Speci men Type: BLOOD SPECIMENOrdering Facility: [facility] Address: [address] [place] [address] Performed By: #### 5 8410-2 ####[facility] LABORATORYCLIA [id number] [address] [place] RBC (Bld) [#/Vol] 3.20 10*6/uL Low 4.20-6.00 [facility] Comment on above: Order Comment: Speci men Type: BLOOD SPECIMENOrdering Facility: [facility] Address: [address] [place] [address] Performed By: #### 5 8410-2 ####[facility] LABORATORYCLIA [id number] [address] [place] WBC (Bld) [#/Vol] 9.20 10*3/uL Normal 3.70-11.00 [facility] Comment on above: Order Comment: Speci men Type: BLOOD SPECIMENOrdering Facility: [facility] Address: [address] [place] [address] Performed By: #### 5 8410-2 ####[facility] LABORATORYCLIA [id number] [address] CONSULT PROGon 07-13-2021 CONSULT PROG Normal [facility] CONSULT PROG Normal [facility] CONSULT PROG Normal [facility] Magnesium SerPl-mCncon 07-13 Magnesium [Mass/Vol] 2.1 mg/dL Normal 1.7-2.3 [facility] Comment on above: Order Comment: Speci men Type: BLOOD SPECIMENOrdering Facility: [facility] Address: [address] [place] [address] Performed By: #### 1 9123-9, 2777-1, 18311-0 ####[facility] LABORATORYCLIA [id number] [address] Phosphate SerPl-mCncon 07-13 Phosphate [Mass/Vol] 3.7 mg/dL Normal 2.7-4.8 [facility] Comment on above: Order Comment: Speci men Type: BLOOD SPECIMENOrdering Facility: [facility] Address: [address] [place] [address] Performed By: #### 1 9123-9, 2777-1, 03010-6 ####[facility] LABORATORYCLIA [id number] [address] THERAPY NTon 07-13-2021 THERAPY NT Normal [facility] THERAPY NT Normal [facility] Vancomycin random [Mass/Vol] on 07-13-2021 Vancomycin [Mass/Vol] 31.7 ug/mL High 10.0-20.0 [facility] Comment on above: Order Comment: Speci men Type: BLOOD SPECIMENOrdering Facility: [facility] Address: [address] [place] [address] Result Comment: Refe rence ranges and high/low indicator flags are provided as general guidelines only. The treating physician must determine appropriate target levels/dosing based on the specific clinical situation. Performed By: #### 4 091-5 ####[facility] LABORATORYCLIA [id number] [address] [place] aPTT PPPon 07-13-2021 aPTT Coag (PPP) [Time] 47.3 s High 23.0-32.4 [facility] Comment on above: Order Comment: Speci men Type: BLOOD SPECIMENOrdering Facility: [facility] Address: [address] [place] [address] Performed By: #### 1 4979-9 ####[facility] LABORATORYCLIA [id number] [address] aPTT Coag (PPP) [Time] 51.2 s High 23.0-32.4 [facility] Comment on above: Order Comment: Speci men Type: BLOOD SPECIMENOrdering Facility: [facility] Address: [address] [place] [address] Performed By: #### 1 4979-9 ####[facility] LABORATORYCLIA [id number] [address] STATES OF [facility] aPTT Coag (PPP) [Time] 47.5 s High 23.0-32.4 [facility] Comment on above: Order Comment: Speci men Type: BLOOD SPECIMENOrdering Facility: [facility] Address: [address] [place] [address] Performed By: #### 1 4979-9 ####[facility] LABORATORYCLIA [id number] [place] [address] [place] Basic metabolic 2000 panelon 07-12-2021 Anion gap [Moles/Vol] 7 mmol/L Low 9-18 [facility] Comment on above: Order Comment: Speci men Type: BLOOD SPECIMENOrdering Facility: [facility] Address: [address] [place] [address] Performed By: #### 1 9123-9, 2777-1, 68033-7 ####[facility] LABORATORYCLIA [id number] [address] STATES OF [facility] Calcium [Mass/Vol] 8.3 mg/dL Low 8.5-10.2 [facility] Comment on above: Order Comment: Speci men Type: BLOOD SPECIMENOrdering Facility: [facility] Address: [address] [place] [id number] Performed By: #### 1 9123-9, 2777-1, 27206-8 ####[facility] LABORATORYCLIA [id number] [place] [address] [place] Chloride [Moles/Vol] 101 mmol/L Normal 97-105 [facility] Comment on above: Order Comment: Speci men Type: BLOOD SPECIMENOrdering Facility: [facility] Address: [address] [place] [address] Performed By: #### 1 9123-9, 2777-1, 36640-2 ####[facility] LABORATORYCLIA [id number] [place] [address] [place] CO2 [Moles/Vol] 32 mmol/L High 22-30 [facility] Comment on above: Order Comment: Speci men Type: BLOOD SPECIMENOrdering Facility: [facility] Address: [address] [place] [address] Performed By: #### 1 9123-9, 2777-, 23808-4 ####[facility] LABORATORYCLIA [id number] [place] [address] [place] Creatinine [Mass/Vol] 0.70 mg/dL Low 0.73-1.22 [facility] Comment on above: Order Comment: Speci men Type: BLOOD SPECIMENOrdering Facility: [facility] Address: [address] [place] [address] Performed By: #### 1 9123-9, 2777-, 02412-8 ####[facility] LABORATORYCLIA [id number] [address] OF [place] ESTIMATED GLOMERULAR FILTRATION RATE 100 mL/min/1.73m??? Normal >=60 [facility] Comment on above: Order Comment: Speci men Type: BLOOD SPECIMENOrdering Facility: [facility] Address: [address] [place] [address] Result Comment: Luzmaria mated Glomerular Filtration Rate [...] GFR. Performed By: #### 1 9123-9, 2777-1, 39473-0 ####[facility] LABORATORYCLIA [id number] [place] [address] [place] Glucose [Mass/Vol] 104 mg/dL High 74-99 [facility] Comment on above: Order Comment: Shira feldman Type: BLOOD SPECIMENOrdering Facility: [facility] Address: [address] [place], [place] [id number] Result Comment: The [place] [employer] (ADA) provides guidance for cutoff [...] Standards of Medical Care in Diabetes 2016, [place] [employer]. Diabetes Care. 2016.39(Suppl 1). Performed By: #### 1 9123-9, 2776-, 59195-6 ####[facility] LABORATORYCLIA [id number] [place] [id number] [place] Potassium [Moles/Vol] 3.7 mmol/L Normal 3.7-5.1 [facility] Comment on above: Order Comment: Shira feldman Type: BLOOD SPECIMENOrdering Facility: [facility] Address: [address] [place] [address] Performed By: #### 1 9123-9, 2777-, 03141-8 ####[facility] LABORATORYCLIA [id number] [place] [address] [place] Sodium [Moles/Vol] 140 mmol/L Normal 136-144 [facility] Comment on above: Order Comment: Speci men Type: BLOOD SPECIMENOrdering Facility: [facility] Address: [address] [place] [address] Performed By: #### 1 9123-9, 2777-1, 70107-7 ####[facility] LABORATORYCLIA [id number] [address] STATES OF [facility] Urea nitrogen [Mass/Vol] 12 mg/dL Normal 9-24 [facility] Comment on above: Order Comment: Speci men Type: BLOOD SPECIMENOrdering Facility: [facility] Address: [address] [place] [address] Performed By: #### 1 9123-9, 2777-, 91484-6 ####[facility] LABORATORYCLIA [id number] [address] STATES OF [facility] CBC panel Auto (Bld)on 07-12 Erythrocyte distribution width (RBC) [Ratio] 16.1 % High 11.5-15.0 [facility] Comment on above: Order Comment: Speci men Type: BLOOD SPECIMENOrdering Facility: [facility] Address: [address] [place] [address] Performed By: #### 5 8410-2 ####[facility] LABORATORYCLIA [id number] [address] [place] Hematocrit (Bld) [Volume fraction] 28.2 % Low 39.0-51.0 [facility] Comment on above: Order Comment: Speci men Type: BLOOD SPECIMENOrdering Facility: [facility] Address: [address] [place] [address] Performed By: #### 5 8410-2 ####[facility] LABORATORYCLIA [id number] [address] STATES OF [facility] Hemoglobin (Bld) [Mass/Vol] 8.5 g/dL Low 13.0-17.0 [facility] Comment on above: Order Comment: Speci men Type: BLOOD SPECIMENOrdering Facility: [facility] Address: [address] [place] [address] Performed By: #### 5 8410-2 ####[facility] LABORATORYCLIA [id number] [address] MCH (RBC) [Entitic mass] 26.8 pg Normal 26.0-34.0 [facility] Comment on above: Order Comment: Speci men Type: BLOOD SPECIMENOrdering Facility: [facility] Address: [address] [place] [address] Performed By: #### 5 8410-2 ####[facility] LABORATORYCLIA [id number] [address] MCHC (RBC) [Mass/Vol] 30.1 g/dL Low 30.5-36.0 [facility] Comment on above: Order Comment: Speci men Type: BLOOD SPECIMENOrdering Facility: [facility] Address: [address] [place] [address] Performed By: #### 5 8410-2 ####[facility] LABORATORYCLIA [id number] [address] MCV (RBC) [Entitic vol] 89.0 fL Normal 80.0-100.0 [facility] Comment on above: Order Comment: Speci men Type: BLOOD SPECIMENOrdering Facility: [facility] Address: [address] [place] [address] Performed By: #### 5 8410-2 ####[facility] LABORATORYCLIA [id number] [address] Nucleated RBC (Bld) [#/Vol] 10*3/uL Normal <0.01 [facility] Comment on above: Order Comment: Speci men Type: BLOOD SPECIMENOrdering Facility: [facility] Address: [address] [place] [address] Performed By: #### 5 8410-2 ####[facility] LABORATORYCLIA [id number] [address] Platelet mean volume (Bld) [Entitic vol] 9.6 fL Normal 9.0-12.7 [facility] Comment on above: Order Comment: Speci men Type: BLOOD SPECIMENOrdering Facility: [facility] Address: [address] [place] [address] Performed By: #### 5 8410-2 ####[facility] LABORATORYCLIA [id number] [address] OF [facility] Platelets (Bld) [#/Vol] 340 10*3/uL Normal 150-400 [facility] Comment on above: Order Comment: Speci men Type: BLOOD SPECIMENOrdering Facility: [facility] Address: [address] [place] [address] Performed By: #### 5 8410-2 ####[facility] LABORATORYCLIA [id number] [address] [place] RBC (Bld) [#/Vol] 3.17 10*6/uL Low 4.20-6.00 [facility] Comment on above: Order Comment: Speci men Type: BLOOD SPECIMENOrdering Facility: [facility] Address: [address] [place] [address] Performed By: #### 5 8410-2 ####[facility] LABORATORYCLIA [id number] [address] OF [facility] WBC (Bld) [#/Vol] 8.66 10*3/uL Normal 3.70-11.00 [facility] Comment on above: Order Comment: Speci men Type: BLOOD SPECIMENOrdering Facility: [facility] Address: [address] [place] [address] Performed By: #### 5 8410-2 ####[facility] LABORATORYCLIA [id number] [address] [place] CONSULTon 07-12-2021 CONSULT Normal [facility] CONSULT PROGon 07-12-2021 CONSULT PROG Normal [facility] Magnesium SerPl-mCncon 07-12 Magnesium [Mass/Vol] 2.1 mg/dL Normal 1.7-2.3 [facility] Comment on above: Order Comment: Speci men Type: BLOOD SPECIMENOrdering Facility: [facility] Address: [address] [place] [address] Performed By: #### 1 9123-9, 2777-1, 53461-0 ####[facility] LABORATORYCLIA [id number] [address] OF [facility] NURSING PROGon 07-12-2021 NURSING PROG Normal [facility] Phosphate SerPl-mCncon 07-12 Phosphate [Mass/Vol] 3.1 mg/dL Normal 2.7-4.8 [facility] Comment on above: Order Comment: Speci men Type: BLOOD SPECIMENOrdering Facility: [facility] Address: [address] [place] [address] Performed By: #### 1 9123-9, 2777, 02693-2 ####[facility] LABORATORYCLIA [id number] [address] THERAPY NTon 07-12-2021 THERAPY NT Normal [facility] aPTT PPPon 07-12-2021 aPTT Coag (PPP) [Time] 49.5 s High 23.0-32.4 [facility] Comment on above: Order Comment: Speci men Type: BLOOD SPECIMENOrdering Facility: [facility] Address: [address] [place] [address] Performed By: #### 1 4979-9 ####[facility] LABORATORYCLIA [id number] [address] [place] aPTT Coag (PPP) [Time] 68.0 s High 23.0-32.4 [facility] Comment on above: Order Comment: Speci men Type: BLOOD SPECIMENOrdering Facility: [facility] Address: [address] [place] [address] Performed By: #### 1 4979-9 ####[facility] LABORATORYCLIA [id number] [address] aPTT Coag (PPP) [Time] 80.0 s High 23.0-32.4 [facility] Comment on above: Order Comment: Speci men Type: BLOOD SPECIMENOrdering Facility: [facility] Address: [address] [place] [address] Performed By: #### 1 4979-9 ####[facility] LABORATORYCLIA [id number] [address] [place] CASE MGT INIT ASSESon 2021 CASE MGT INIT ASSES Normal [facility] CBC panel Auto (Bld)on 07-11 Erythrocyte distribution width (RBC) [Ratio] 16.3 % High 11.5-15.0 [facility] Comment on above: Order Comment: Speci men Type: BLOOD SPECIMENOrdering Facility: [facility] Address: [address] [place] [address] Performed By: #### 5 8410-2 ####[facility] LABORATORYCLIA [id number] [address] STATES [facility] Hematocrit (Bld) [Volume fraction] 28.3 % Low 39.0-51.0 [facility] Comment on above: Order Comment: Speci men Type: BLOOD SPECIMENOrdering Facility: [facility] Address: [address] [place] [address] Performed By: #### 5 8410-2 ####[facility] LABORATORYCLIA [id number] [address] [place] Hemoglobin (Bld) [Mass/Vol] 8.8 g/dL Low 13.0-17.0 [facility] Comment on above: Order Comment: Speci men Type: BLOOD SPECIMENOrdering Facility: [facility] Address: [address] [place] [address] Performed By: #### 5 8410-2 ####[facility] LABORATORYCLIA [id number] [address] [place] MCH (RBC) [Entitic mass] 27.4 pg Normal 26.0-34.0 [facility] Comment on above: Order Comment: Speci men Type: BLOOD SPECIMENOrdering Facility: [facility] Address: [address] [place] [address] Performed By: #### 5 8410-2 ####[facility] LABORATORYCLIA [id number] [address] MCHC (RBC) [Mass/Vol] 31.1 g/dL Normal 30.5-36.0 [facility] Comment on above: Order Comment: Speci men Type: BLOOD SPECIMENOrdering Facility: [facility] Address: [address] [place] [address] Performed By: #### 5 8410-2 ####[facility] LABORATORYCLIA [id number] [address] MCV (RBC) [Entitic vol] 88.2 fL Normal 80.0-100.0 [facility] Comment on above: Order Comment: Speci men Type: BLOOD SPECIMENOrdering Facility: [facility] Address: [address] [place] [address] Performed By: #### 5 8410-2 ####[facility] LABORATORYCLIA [id number] [address] Nucleated RBC (Bld) [#/Vol] 10*3/uL Normal <0.01 [facility] Comment on above: Order Comment: Speci men Type: BLOOD SPECIMENOrdering Facility: [facility] Address: [address] [place] [address] Performed By: #### 5 8410-2 ####[facility] LABORATORYCLIA [id number] [address] Platelet mean volume (Bld) [Entitic vol] 9.7 fL Normal 9.0-12.7 [facility] Comment on above: Order Comment: Speci men Type: BLOOD SPECIMENOrdering Facility: [facility] Address: [address] [place] [address] Performed By: #### 5 8410-2 ####[facility]ORATORYCLIA [id number] [address] STATES OF [facility] Platelets (Bld) [#/Vol] 315 10*3/uL Normal 150-400 [facility] Comment on above: Order Comment: Speci men Type: BLOOD SPECIMENOrdering Facility: [facility] Address: [address] [place] [address] Performed By: #### 5 8410-2 ####[facility] LABORATORYCLIA [id number] [place] [address] [place] RBC (Bld) [#/Vol] 3.21 10*6/uL Low 4.20-6.00 [facility] Comment on above: Order Comment: Speci men Type: BLOOD SPECIMENOrdering Facility: [facility] Address: [address] [place] [address] Performed By: #### 5 8410-2 ####[facility] LABORATORYCLIA [id number] [address] OF [facility] WBC (Bld) [#/Vol] 9.18 10*3/uL Normal 3.70-11.00 [facility] Comment on above: Order Comment: Speci men Type: BLOOD SPECIMENOrdering Facility: [facility] Address: [address] [place] [address] Performed By: #### 5 8410-2 ####[facility] LABORATORYCLIA [id number] [address] [place] CONSULT PROGon 07-11-2021 CONSULT PROG Normal [facility] CT BRAIN WO IVCONon 07-12-[address] BRAIN WO IVCON Normal [facility] Magnesium SerPl-mCncon 07-11 Magnesium [Mass/Vol] 2.1 mg/dL Normal 1.7-2.3 [facility] Comment on above: Order Comment: Speci men Type: BLOOD SPECIMENOrdering Facility: [facility] Address: [address] [place] [address] Performed By: #### 1 9123-9, 2777-1 ####[facility] LABORATORYCLIA [id number] [address] NURSING PROGon 07-11-2021 NURSING PROG Normal [facility] NURSING PROG Normal [facility] Phosphate SerPl-mCncon 07-11 Phosphate [Mass/Vol] 3.4 mg/dL Normal 2.7-4.8 [facility] Comment on above: Order Comment: Speci men Type: BLOOD SPECIMENOrdering Facility: [facility] Address: [address] [place] [address] Performed By: #### 1 9123-9, 2777-1 ####[facility] LABORATORYCLIA [id number] [address] THERAPY NTon 07-11-2021 THERAPY NT Normal [facility] Vancomycin random [Mass/Vol] on 07-11-2021 Vancomycin [Mass/Vol] 28.6 ug/mL High 10.0-20.0 [facility] Comment on above: Order Comment: Speci men Type: BLOOD SPECIMENOrdering Facility: [facility] Address: [address] [place] [address] Result Comment: Refe rence ranges and high/low indicator flags are provided as general guidelines only. The treating physician must determine appropriate target levels/dosing based on the specific clinical situation. Performed By: #### 4 091-5 ####[facility] LABORATORYCLIA [id number] [address] aPTT PPPon 07-11-2021 aPTT Coag (PPP) [Time] 62.0 s High 23.0-32.4 [facility] Comment on above: Order Comment: Speci men Type: BLOOD SPECIMENOrdering Facility: [facility] Address: [address] [place] [address] Performed By: #### 1 4979-9 ####[facility] LABORATORYCLIA [id number] [address] aPTT Coag (PPP) [Time] 52.7 s High 23.0-32.4 [facility] Comment on above: Order Comment: Speci men Type: BLOOD SPECIMENOrdering Facility: [facility] Address: [address] [place] [address] Performed By: #### 1 4979-9 ####[facility] LABORATORYCLIA [id number] [address] [place] aPTT Coag (PPP) [Time] 29.9 s Normal 23.0-32.4 [facility] Comment on above: Order Comment: Speci men Type: BLOOD SPECIMENOrdering Facility: [facility] Address: [address] [place] [address] Performed By: #### 1 4979-9 ####[facility] LABORATORYCLIA [id number] [place] [address] [place] Basic metabolic 2000 panelon 07-10-2021 Anion gap [Moles/Vol] 14 mmol/L Normal 9-18 [facility] Comment on above: Order Comment: Speci men Type: BLOOD SPECIMENOrdering Facility: [facility] Address: [address] [place] [address] Performed By: #### 1 9123-9, 2777-1, 72402-8 ####[facility] [id number] [place] [address] [place] Calcium [Mass/Vol] 8.5 mg/dL Normal 8.5-10.2 [facility] Comment on above: Order Comment: Speci men Type: BLOOD SPECIMENOrdering Facility: [facility] Address: [address] [place] [address] Performed By: #### 1 9123-9, 2777-1, 24657-2 ####[facility] LABORATORYCLIA [id number] [place] [address] [place] Chloride [Moles/Vol] 100 mmol/L Normal 97-105 [facility] Comment on above: Order Comment: Speci men Type: BLOOD SPECIMENOrdering Facility: [facility] Address: [address] [place] [address] Performed By: #### 1 9123-9, 2777, 88074-5 ####[facility] LABORATORYCLIA [id number] [address] STATES OF [facility] CO2 [Moles/Vol] 27 mmol/L Normal 22-30 [facility] Comment on above: Order Comment: Speci men Type: BLOOD SPECIMENOrdering Facility: [facility] Address: [address] [place] [address] Performed By: #### 1 9123-9, 27711-04, 52803-9 ####[facility] LABORATORYCLIA [id number] [address] STATES OF [facility] Creatinine [Mass/Vol] 0.66 mg/dL Low 0.73-1.22 [facility] Comment on above: Order Comment: Speci men Type: BLOOD SPECIMENOrdering Facility: [facility] Address: [address] [place] [address] Performed By: #### 1 9123-9, 27711-04, ####[facility]ITALCLIA [id number] [address] ESTIMATED GLOMERULAR FILTRATION RATE 102 mL/min/1.73m??? Normal >=60 [facility] Comment on above: Order Comment: Speci men Type: BLOOD SPECIMENOrdering Facility: [facility] Address: [address] [place] [address] Result Comment: Luzmaria mated Glomerular Filtration Rate [...] GFR. Performed By: #### 1 9123-9, 2777-, 97130-6 ####[facility] LABORATORYCLIA [id number] [address] [place] Glucose [Mass/Vol] 93 mg/dL Normal 74-99 [facility] Comment on above: Order Comment: Speci men Type: BLOOD SPECIMENOrdering Facility: [facility] Address: [address] [place], [place] [address] Result Comment: The [place] [employer] (ADA) provides guidance for cutoff [...] Standards of Medical Care in Diabetes 2016, [place] [employer]. Diabetes Care. 2016.39(Suppl 1). Performed By: #### 1 9123-9, 2777-1, 68471-9 ####[facility] LABORATORYCLIA [id number] [place] [address] [place] Potassium [Moles/Vol] 3.5 mmol/L Low 3.7-5.1 [facility] Comment on above: Order Comment: Shira [facility] Type: BLOOD SPECIMENOrdering Facility: [facility] Address: [address] [place], [place] [address] Performed By: #### 1 9123-9, 2777-, 39377-8 ####[facility] LABORATORYCLIA [id number] [place] [address] [place] Sodium [Moles/Vol] 141 mmol/L Normal 136-144 [facility] Comment on above: Order Comment: Speci men Type: BLOOD SPECIMENOrdering Facility: [facility] Address: [address] [place], [place] [address] Performed By: #### 1 9123-9, 2777-, 26274-0 ####[facility] LABORATORYCLIA [id number] [place] [address] [place] Urea nitrogen [Mass/Vol] 11 mg/dL Normal 9-24 [facility] Comment on above: Order Comment: Speci men Type: BLOOD SPECIMENOrdering Facility: [facility] Address: [address] [place] [address] Performed By: #### 1 9123-9, 2777-1, 47494-5 ####[facility] LABORATORYCLIA [id number] [address] CBC panel Auto (Bld)on 07-10 Erythrocyte distribution width (RBC) [Ratio] 16.2 % High 11.5-15.0 [facility] Comment on above: Order Comment: Speci men Type: BLOOD SPECIMENOrdering Facility: [facility] Address: [address] [place] [address] Performed By: #### 5 8410-2 ####[facility] LABORATORYCLIA [id number] [address] Hematocrit (Bld) [Volume fraction] 30.6 % Low 39.0-51.0 [facility] Comment on above: Order Comment: Speci men Type: BLOOD SPECIMENOrdering Facility: [facility] Address: [address] [place] [address] Performed By: #### 5 8410-2 ####[facility] LABORATORYCLIA [id number] [address] Hemoglobin (Bld) [Mass/Vol] 9.6 g/dL Low 13.0-17.0 [facility] Comment on above: Order Comment: Speci men Type: BLOOD SPECIMENOrdering Facility: [facility] Address: [address] [place] [address] Performed By: #### 5 8410-2 ####[facility] LABORATORYCLIA [id number] [address] MCH (RBC) [Entitic mass] 28.3 pg Normal 26.0-34.0 [facility] Comment on above: Order Comment: Speci men Type: BLOOD SPECIMENOrdering Facility: [facility] Address: [address] [place] [address] Performed By: #### 5 8410-2 ####[facility] LABORATORYCLIA [id number] [address] STATES [facility] MCHC (RBC) [Mass/Vol] 31.4 g/dL Normal 30.5-36.0 [facility] Comment on above: Order Comment: Speci men Type: BLOOD SPECIMENOrdering Facility: [facility] Address: [address] [place] [address] Performed By: #### 5 8410-2 ####[facility] LABORATORYCLIA [id number] [address] STATES [facility] MCV (RBC) [Entitic vol] 90.3 fL Normal 80.0-100.0 [facility] Comment on above: Order Comment: Speci men Type: BLOOD SPECIMENOrdering Facility: [facility] Address: [address] [place] [address] Performed By: #### 5 8410-2 ####[facility] LABORATORYCLIA [id number] [address] Nucleated RBC (Bld) [#/Vol] 10*3/uL Normal <0.01 [facility] Comment on above: Order Comment: Speci men Type: BLOOD SPECIMENOrdering Facility: [facility] Address: [address] [place] [address] Performed By: #### 5 8410-2 ####[facility] LABORATORYCLIA [id number] [address] [place] Platelet mean volume (Bld) [Entitic vol] 9.7 fL Normal 9.0-12.7 [facility] Comment on above: Order Comment: Speci men Type: BLOOD SPECIMENOrdering Facility: [facility] Address: [address] [place] [address] Performed By: #### 5 8410-2 ####[facility] LABORATORYCLIA [id number] [address] [place] Platelets (Bld) [#/Vol] 306 10*3/uL Normal 150-400 [facility] Comment on above: Order Comment: Speci men Type: BLOOD SPECIMENOrdering Facility: [facility] Address: [address] [place] [address] Performed By: #### 5 8410-2 ####[facility] LABORATORYCLIA [id number] [address] OF [facility] RBC (Bld) [#/Vol] 3.39 10*6/uL Low 4.20-6.00 [facility] Comment on above: Order Comment: Speci men Type: BLOOD SPECIMENOrdering Facility: [facility] Address: [address] [place] [address] Performed By: #### 5 8410-2 ####[facility] LABORATORYCLIA [id number] [address] WBC (Bld) [#/Vol] 9.81 10*3/uL Normal 3.70-11.00 [facility] Comment on above: Order Comment: Speci men Type: BLOOD SPECIMENOrdering Facility: [facility] Address: [address] [place] [address] Performed By: #### 5 8410-2 ####[facility] LABORATORYCLIA [id number] [address] [place] CONSULTon 07-10-2021 CONSULT Normal [facility] CONSULT Normal [facility] Magnesium SerPl-mCncon 07-10 Magnesium [Mass/Vol] 1.9 mg/dL Normal 1.7-2.3 [facility] Comment on above: Order Comment: Speci men Type: BLOOD SPECIMENOrdering Facility: [facility] Address: [address] [place] [address] Performed By: #### 1 9123-9, 2777-1, 41240-8 ####[facility] LABORATORYCLIA [id number] [address] [place] NURSING PROGon 07-10-2021 NURSING PROG Normal [facility] NURSING PROG Normal [facility] NUTRITIONon 07-10-2021 NUTRITION Normal [facility] Phosphate SerPl-mCncon 07-10 Phosphate [Mass/Vol] 3.6 mg/dL Normal 2.7-4.8 [facility] Comment on above: Order Comment: Speci men Type: BLOOD SPECIMENOrdering Facility: [facility] Address: [address] [place] [address] Performed By: #### 1 9123-9, 2777-1, 26099-3 ####[facility] LABORATORYCLIA [id number] [address] [place] US DVT LOWER BILon US DVT LOWER RAINER Normal [facility] aPTT PPPon 07-10-2021 aPTT Coag (PPP) [Time] 28.8 s Normal 23.0-32.4 [facility] Comment on above: Order Comment: Speci men Type: BLOOD SPECIMENOrdering Facility: [facility] Address: [address] [place] [address] Performed By: #### 1 4979-9 ####[facility] LABORATORYCLIA [id number] [address] aPTT Coag (PPP) [Time] 28.4 s Normal 23.0-32.4 [facility] Comment on above: Order Comment: Speci men Type: BLOOD SPECIMENOrdering Facility: [facility] Address: [address] [place] [address] Performed By: #### 1 4979-9 ####[facility] LABORATORYCLIA [id number] [address] [place] ALLIED HEALTHon 07-09-2021 ALLIED HEALTH Normal [facility] Basic metabolic 2000 panelon 07-09-2021 Anion gap [Moles/Vol] 9 mmol/L Normal 9-18 [facility] Comment on above: Order Comment: Speci men Type: BLOOD SPECIMENOrdering Facility: [facility] Address: [address] [place] [address] Performed By: #### 1 9123-9, 2777-1, 61130-6 ####[facility] LABORATORYCLIA [id number] [place] [address] [place] Calcium [Mass/Vol] 8.3 mg/dL Low 8.5-10.2 [facility] Comment on above: Order Comment: Speci men Type: BLOOD SPECIMENOrdering Facility: [facility] Address: [address] [place] [address] Performed By: #### 1 9123-9, 2777-1, 82233-2 ####[facility] LABORATORYCLIA [id number] [place] [address] [place] Chloride [Moles/Vol] 100 mmol/L Normal 97-105 [facility] Comment on above: Order Comment: Speci men Type: BLOOD SPECIMENOrdering Facility: [facility] Address: [address] [place] [address] Performed By: #### 1 9123-9, 27711-04, 04471-8 ####[facility] LABORATORYCLIA [id number] [address] [place] CO2 [Moles/Vol] 29 mmol/L Normal 22-30 [facility] Comment on above: Order Comment: Speci men Type: BLOOD SPECIMENOrdering Facility: [facility] Address: [address] [place] [address] Performed By: #### 1 9123-9, 27711-04, 10112-7 ####[facility] LABORATORYCLIA [id number] [place] [address] [place] Creatinine [Mass/Vol] 0.61 mg/dL Low 0.73-1.22 [facility] Comment on above: Order Comment: Speci men Type: BLOOD SPECIMENOrdering Facility: [facility] Address: [address] [place] [address] Performed By: #### 1 9123-9, 2777-1, 43711-2 ####[facility] LABORATORYCLIA [id number] [address] OF [facility] ESTIMATED GLOMERULAR FILTRATION RATE 104 mL/min/1.73m??? Normal >=60 [facility] Comment on above: Order Comment: Shira feldman Type: BLOOD SPECIMENOrdering Facility: [facility] Address: [address] [place], [place] [phone] Result Comment: Luzmaria mated Glomerular Filtration Rate [...] GFR. Performed By: #### 1 9123-9, 2777-1, 98560-5 ####[facility]ITALCLIA [id number] [place] [address] [place] Glucose [Mass/Vol] 106 mg/dL High 74-99 [facility] Comment on above: Order Comment: Shira feldman Type: BLOOD SPECIMENOrdering Facility: [facility] Address: [address] [place] [address] Result Comment: The [place] [employer] Association (ADA) provides guidance for cutoff [...] Standards of Medical Care in Diabetes 2016, [place] [employer]. Diabetes Care. 2016.39(Suppl 1). Performed By: #### 1 9123-9, 2777-1, 48993-2 ####[facility] LABORATORYCLIA [id number] [place] [address] [place] Potassium [Moles/Vol] 3.6 mmol/L Low 3.7-5.1 [facility] Comment on above: Order Comment: Shira feldman Type: BLOOD SPECIMENOrdering Facility: [facility] Address: [address] [place] [address] Performed By: #### 1 9123-9, 2777-1, 91843-3 ####[facility] LABORATORYCLIA [id number] [address] Sodium [Moles/Vol] 138 mmol/L Normal 136-144 [facility] Comment on above: Order Comment: Speci men Type: BLOOD SPECIMENOrdering Facility: [facility] Address: [address] [place] [address] Performed By: #### 1 9123-9, 2777, 73914-3 ####[facility] LABORATORYCLIA [id number] [address] Urea nitrogen [Mass/Vol] 12 mg/dL Normal 9-24 [facility] Comment on above: Order Comment: Speci men Type: BLOOD SPECIMENOrdering Facility: [facility] Address: [address] [place] [address] Performed By: #### 1 9123-9, 2777, 06067-2 ####[facility] LABORATORYCLIA [id number] [address] CBC panel Auto (Bld)on 07-09 Erythrocyte distribution width (RBC) [Ratio] 16.2 % High 11.5-15.0 [facility] Comment on above: Order Comment: Speci men Type: BLOOD SPECIMENOrdering Facility: [facility] Address: [address] [place] [address] Performed By: #### 5 8410-2 ####[facility] LABORATORYCLIA [id number] [address] Hematocrit (Bld) [Volume fraction] 29.0 % Low 39.0-51.0 [facility] Comment on above: Order Comment: Speci men Type: BLOOD SPECIMENOrdering Facility: [facility] Address: [address] [place] [address] Performed By: #### 5 8410-2 ####[facility] LABORATORYCLIA [id number] [address] OF [facility] Hemoglobin (Bld) [Mass/Vol] 8.8 g/dL Low 13.0-17.0 [facility] Comment on above: Order Comment: Speci men Type: BLOOD SPECIMENOrdering Facility: [facility] Address: [address] [place] [address] Performed By: #### 5 8410-2 ####[facility] LABORATORYCLIA [id number] [address] MCH (RBC) [Entitic mass] 27.0 pg Normal 26.0-34.0 [facility] Comment on above: Order Comment: Speci men Type: BLOOD SPECIMENOrdering Facility: [facility] Address: [address] [place] [address] Performed By: #### 5 8410-2 ####[facility] LABORATORYCLIA [id number] [address] MCHC (RBC) [Mass/Vol] 30.3 g/dL Low 30.5-36.0 [facility] Comment on above: Order Comment: Speci men Type: BLOOD SPECIMENOrdering Facility: [facility] Address: [address] [place] [address] Performed By: #### 5 8410-2 ####[facility] LABORATORYCLIA [id number] [address] MCV (RBC) [Entitic vol] 89.0 fL Normal 80.0-100.0 [facility] Comment on above: Order Comment: Speci men Type: BLOOD SPECIMENOrdering Facility: [facility] Address: [address] [place] [address] Performed By: #### 5 8410-2 ####[facility] LABORATORYCLIA [id number] [address] Nucleated RBC (Bld) [#/Vol] 10*3/uL Normal <0.01 [facility] Comment on above: Order Comment: Speci men Type: BLOOD SPECIMENOrdering Facility: [facility] Address: [address] [place] [address] Performed By: #### 5 8410-2 ####[facility] LABORATORYCLIA [id number] [address] Platelet mean volume (Bld) [Entitic vol] 9.8 fL Normal 9.0-12.7 [facility] Comment on above: Order Comment: Speci men Type: BLOOD SPECIMENOrdering Facility: [facility] Address: [address] [place] [address] Performed By: #### 5 8410-2 ####[facility] LABORATORYCLIA [id number] [address] [place] Platelets (Bld) [#/Vol] 281 10*3/uL Normal 150-400 [facility] Comment on above: Order Comment: Speci men Type: BLOOD SPECIMENOrdering Facility: [facility] Address: [address] [place] [address] Performed By: #### 5 8410-2 ####[facility] LABORATORYCLIA [id number] [address] [place] RBC (Bld) [#/Vol] 3.26 10*6/uL Low 4.20-6.00 [facility] Comment on above: Order Comment: Speci men Type: BLOOD SPECIMENOrdering Facility: [facility] Address: [address] [place], [place] [address] Performed By: #### 5 8410-2 ####[facility] LABORATORYCLIA [id number] [address] [place] WBC (Bld) [#/Vol] 9.12 10*3/uL Normal 3.70-11.00 [facility] Comment on above: Order Comment: Speci men Type: BLOOD SPECIMENOrdering Facility: [facility] Address: [address] [place] [address] Performed By: #### 5 8410-2 ####[facility] LABORATORYCLIA [id number] [address] [place] CONSULT PROGon 07-09-2021 CONSULT PROG Normal [facility] CONSULT PROG Normal [facility] HISTORY PHYSICALon HISTORY PHYSICAL Normal [facility] Magnesium SerPl-mCncon 07-09 Magnesium [Mass/Vol] 1.9 mg/dL Normal 1.7-2.3 [facility] Comment on above: Order Comment: Speci men Type: BLOOD SPECIMENOrdering Facility: [facility] Address: [address] [place] [address] Performed By: #### 1 9123-9, 2777-1, 45248-2 ####[facility] LABORATORYCLIA [id number] [address] Phosphate SerPl-mCncon 07-09 Phosphate [Mass/Vol] 3.6 mg/dL Normal 2.7-4.8 [facility] Comment on above: Order Comment: Speci men Type: BLOOD SPECIMENOrdering Facility: [facility] Address: [address] [place] [address] Performed By: #### 1 9123-9, 2777-1, 97428-6 ####[facility] LABORATORYCLIA [id number] [address] THERAPY NTon 07-09-2021 THERAPY NT Normal [...] By: #### 6 00-7 ####[facility] LABORATORYCLIA [id number] [address] Bacteria identified Cx Nom (Bld) CULTURE, BLOOD: No growth 5 days [facility] Comment on above: Performed By: #### 6 00-7 ####[facility] LABORATORYCLIA [id number] [address] Bacteria CSF Culton 07-09-19 22 Bacteria identified Cx Nom (CSF) CULTURE, CSF: No growth 14 days GRAM STAIN: No organisms seen No Polymorphonuclear Leukocytes Few Red Blood Cells Gram stain performed on cytospun specimen. Normal [facility] Comment on above: Performed By: #### 6 06-4 ####[facility] LABORATORYCLIA [id number] [address] Bacteria Ur Culton 2 Bacteria identified Cx Nom (U) ORGANISM ID: 1 10,000 -<50,000 CFU/ml Proteus species Insignificant colony count. No further workup. ORGANISM ID: 2 <10,000 CFU/ml Normal urogenital chris [facility] Comment on above: Performed By: #### 6 30-4 ####[facility] LABORATORYCLIA [id number] [address] Bacteria Wnd Culton 07-09-19 22 Bacteria identified Cx Nom (Wound) ORGANISM ID: 1 Coagulase negative staphylococcus Growth in Enrichment Broth Only No susceptibility testing done. Call lab within 72 hours to initiate work-up if clinically indicated. GRAM STAIN: Account credited. Not performed on this specimen type. Normal [facility] Comment on above: Performed By: #### 6 462-6 ####[facility] LABORATORYCLIA [id number] [address] Bacteria identified Cx Nom (Wound) ORGANISM ID: 1 Rare Coagulase negative staphylococcus No susceptibility testing done. Call lab within 72 hours to initiate work-up if clinically indicated. GRAM STAIN: Account credited. Not performed on this specimen type. [facility] Comment on above: Performed By: #### 6 462-6 ####[facility] LABORATORYCLIA [id number] [place] [address] Bacteria identified Cx Nom (Wound) CULTURE, INTRAOPERATIVE HARDWARE: No growth 14 days GRAM STAIN: Account credited. Not performed on this specimen type. Normal [facility] Comment on above: Performed By: #### 6 462-6 ####[facility] LABORATORYCLIA [id number] [place] [address] [place] Basic metabolic 2000 panelon 07-08-2021 Anion gap [Moles/Vol] 9 mmol/L Normal 9-18 [facility] Comment on above: Order Comment: Speci men Type: BLOOD SPECIMENOrdering Facility: [facility] Address: [address] [place] [address] Performed By: #### 2 4321-2 ####[facility] LABORATORYCLIA [id number] [place] [address] [place] Calcium [Mass/Vol] 8.5 mg/dL Normal 8.5-10.2 [facility] Comment on above: Order Comment: Speci men Type: BLOOD SPECIMENOrdering Facility: [facility] Address: [address] [place] [address] Performed By: #### 2 4321-2 ####[facility] LABORATORYCLIA [id number] [address] [place] Chloride [Moles/Vol] 98 mmol/L Normal 97-105 [facility] Comment on above: Order Comment: Speci men Type: BLOOD SPECIMENOrdering Facility: [facility] Address: [address] [place] [address] Performed By: #### 2 4321-2 ####[facility] LABORATORYCLIA [id number] [place] [address] [place] CO2 [Moles/Vol] 31 mmol/L High 22-30 [facility] Comment on above: Order Comment: Speci men Type: BLOOD SPECIMENOrdering Facility: [facility] Address: [facility] [place] [address] Performed By: #### 2 4321-2 ####[facility] LABORATORYCLIA [id number] [address] [place] Creatinine [Mass/Vol] 0.64 mg/dL Low 0.73-1.22 [facility] Comment on above: Order Comment: Shira feldman Type: BLOOD SPECIMENOrdering Facility: [facility] Address: [address] [place] [address] Performed By: #### 2 4321-2 ####[facility] LABORATORYIA [id number] [address] ESTIMATED GLOMERULAR FILTRATION RATE 102 mL/min/1.73m??? Normal >=60 [facility] [facility] Comment on above: Order Comment: Shira feldman Type: BLOOD SPECIMENOrdering Facility: [facility] Address: [address] [place] [address] Result Comment: Luzmaria mated Glomerular Filtration Rate [...] actual GFR. Performed By: #### 2 4321-2 ####[facility] [id number] [address] [place] Glucose [Mass/Vol] 114 mg/dL High 74-99 [facility] Comment on above: Order Comment: Shira feldman Type: BLOOD SPECIMENOrdering Facility: [facility] Address: [address] [place] [address] Result Comment: The [place] Diabetes Association (ADA) provides guidance for cutoff [...] Standards of Medical Care in Diabetes 2016, [place] [employer]. Diabetes Care. 2016.39(Suppl 1). Performed By: #### 2 4321-2 ####[facility] LABORATORYCLIA [id number] [address] [place] Potassium [Moles/Vol] 3.4 mmol/L Low 3.7-5.1 [facility] Comment on above: Order Comment: Speci men Type: BLOOD SPECIMENOrdering Facility: [facility] Address: [address] [place] [address] Performed By: #### 2 4321-2 ####[facility] LABORATORYCLIA [id number] [address] STATES [facility] Sodium [Moles/Vol] 138 mmol/L Normal 136-144 [facility] Comment on above: Order Comment: Speci men Type: BLOOD SPECIMENOrdering Facility: [facility] Address: [address] [place] [address] Performed By: #### 2 4321-2 ####[facility] LABORATORYCLIA [id number] [address] STATES [facility] Urea nitrogen [Mass/Vol] 14 mg/dL Normal 9-24 [facility] Comment on above: Order Comment: Speci men Type: BLOOD SPECIMENOrdering Facility: [facility] Address: [address] [place] [address] Performed By: #### 2 4321-2 ####[facility] LABORATORYCLIA [id number] [address] [place] CBC W Auto Differential pane l (Bld)on 07-08-2021 Basophils (Bld) [#/Vol] 0.05 10*3/uL Normal <0.11 [facility] Comment on above: Order Comment: Speci men Type: BLOOD SPECIMENOrdering Facility: [facility] Address: [address] [place] [address] Performed By: #### 5 7021-8 ####[facility] LABORATORYCLIA [id number] [address] [place] Basophils/100 WBC (Bld) 0.4 % Normal [facility] Comment on above: Order Comment: Speci men Type: BLOOD SPECIMENOrdering Facility: [facility] Address: [address] [place] [address] Performed By: #### 5 7021-8 ####[facility] LABORATORYCLIA [id number] [address] [place] Differential cell count method Nom (Bld) Auto Normal [facility] Comment on above: Order Comment: Speci men Type: BLOOD SPECIMENOrdering Facility: [facility] Address: [address] [place] [address] Performed By: #### 5 7021-8 ####[facility] LABORATORYCLIA [id number] [address] [place] Eosinophils (Bld) [#/Vol] 0.68 10*3/uL High <0.46 [facility] Comment on above: Order Comment: Speci men Type: BLOOD SPECIMENOrdering Facility: [facility] Address: [address] [place] [address] Performed By: #### 5 7021-8 ####[facility]ORATORYCLIA [id number] [address] [place] Eosinophils/100 WBC (Bld) 5.4 % Normal [facility] Comment on above: Order Comment: Speci men Type: BLOOD SPECIMENOrdering Facility: [facility] Address: [address] [place] [address] Performed By: #### 5 7021-8 ####[facility] LABORATORYCLIA [id number] [address] [place] Erythrocyte distribution width (RBC) [Ratio] 16.3 % High 11.5-15.0 [facility] Comment on above: Order Comment: Speci men Type: BLOOD SPECIMENOrdering Facility: [facility] Address: [address] [place] [address] Performed By: #### 5 7021-8 ####[facility] LABORATORYCLIA [id number] [address] Hematocrit (Bld) [Volume fraction] 35.7 % Low 39.0-51.0 [facility] Comment on above: Order Comment: Speci men Type: BLOOD SPECIMENOrdering Facility: [facility] Address: [address] [place] [address] Performed By: #### 5 7021-8 ####[facility] LABORATORYCLIA [id number] [address] Hemoglobin (Bld) [Mass/Vol] 10.8 g/dL Low 13.0-17.0 [facility] Comment on above: Order Comment: Speci men Type: BLOOD SPECIMENOrdering Facility: [facility] Address: [address] [place] [address] Performed By: #### 5 7021-8 ####[facility] LABORATORYCLIA [id number] [address] IMMATURE GRAN % 0.4 % Normal [facility] Comment on above: Order Comment: Speci men Type: BLOOD SPECIMENOrdering Facility: [facility] Address: [address] [place] [address] Performed By: #### 5 7021-8 ####[facility]ORATORYCLIA [id number] [address] IMMATURE GRAN ABS 0.05 k/uL Normal <0.10 [facility] Comment on above: Order Comment: Speci men Type: BLOOD SPECIMENOrdering Facility: [facility] Address: [address] [place] [address] Performed By: #### 5 7021-8 ####[facility] LABORATORYCLIA [id number] [address] Lymphocytes (Bld) [#/Vol] 1.85 10*3/uL Normal 1.00-4.00 [facility] Comment on above: Order Comment: Speci men Type: BLOOD SPECIMENOrdering Facility: [facility] Address: [address] [place] [address] Performed By: #### 5 7021-8 ####[facility] LABORATORYCLIA [id number] [address] Lymphocytes/100 WBC (Bld) 14.7 % Normal [facility] Comment on above: Order Comment: Speci men Type: BLOOD SPECIMENOrdering Facility: [facility] Address: [address] [place] [address] Performed By: #### 5 7021-8 ####[facility] LABORATORYCLIA [id number] [address] OF [facility] MCH (RBC) [Entitic mass] 27.1 pg Normal 26.0-34.0 [facility] Comment on above: Order Comment: Speci men Type: BLOOD SPECIMENOrdering Facility: [facility] Address: [address] [place] [address] Performed By: #### 5 7021-8 ####[facility]ORATORYCLIA [id number] [address] STATES [facility] MCHC (RBC) [Mass/Vol] 30.3 g/dL Low 30.5-36.0 [facility] Comment on above: Order Comment: Speci men Type: BLOOD SPECIMENOrdering Facility: [facility] Address: [address] [place] [address] Performed By: #### 5 7021-8 ####[facility]ORATORYCLIA [id number] [address] MCV (RBC) [Entitic vol] 89.7 fL Normal 80.0-100.0 [facility] Comment on above: Order Comment: Speci men Type: BLOOD SPECIMENOrdering Facility: [facility] Address: [address] [place] [address] Performed By: #### 5 7021-8 ####[facility]ORATORYCLIA [id number] [address] Monocytes (Bld) [#/Vol] 0.87 10*3/uL High <0.87 [facility] Comment on above: Order Comment: Speci men Type: BLOOD SPECIMENOrdering Facility: [facility] Address: [address] [place] [address] Performed By: #### 5 7021-8 ####[facility] LABORATORYCLIA [id number] [address] [place] Monocytes/100 WBC (Bld) 6.9 % Normal [facility] Comment on above: Order Comment: Speci men Type: BLOOD SPECIMENOrdering Facility: [facility] Address: [address] [place] [address] Performed By: #### 5 7021-8 ####[facility] LABORATORYCLIA [id number] [address] [place] Neutrophils (Bld) [#/Vol] 9.05 10*3/uL High 1.45-7.50 [facility] Comment on above: Order Comment: Speci men Type: BLOOD SPECIMENOrdering Facility: [facility] Address: [address] [place] [address] Performed By: #### 5 7021-8 ####[facility]ORATORYCLIA [id number] [address] [place] Neutrophils/100 WBC (Bld) 72.2 % Normal [facility] Comment on above: Order Comment: Speci men Type: BLOOD SPECIMENOrdering Facility: [facility] Address: [address] [place] [address] Performed By: #### 5 7021-8 ####[facility]ATORYCLIA [id number] [address] [place] Nucleated RBC (Bld) [#/Vol] 10*3/uL Normal <0.01 [facility] Comment on above: Order Comment: Speci men Type: BLOOD SPECIMENOrdering Facility: [facility] Address: [address] [place] [address] Performed By: #### 5 7021-8 ####[facility]ATORYCLIA [id number] [address] [place] Nucleated RBC/100 WBC (Bld) [Ratio] 0.0 /100 WBC Normal [facility] Comment on above: Order Comment: Speci men Type: BLOOD SPECIMENOrdering Facility: [facility] Address: [address] [place] [address] Performed By: #### 5 7021-8 ####[facility] LABORATORYCLIA [id number] [place] [address] [place] Platelet mean volume (Bld) [Entitic vol] 9.9 fL Normal 9.0-12.7 [facility] Comment on above: Order Comment: Speci men Type: BLOOD SPECIMENOrdering Facility: [facility] Address: [address] [place] [address] Performed By: #### 5 7021-8 ####[facility]ORATORYCLIA [id number] [address] [place] Platelets (Bld) [#/Vol] 335 10*3/uL Normal 150-400 [facility] Comment on above: Order Comment: Speci men Type: BLOOD SPECIMENOrdering Facility: [facility] Address: [address] [place] [address] Performed By: #### 5 7021-8 ####[facility] LABORATORYCLIA [id number] [place] [address] [place] RBC (Bld) [#/Vol] 3.98 10*6/uL Low 4.20-6.00 [facility] Comment on above: Order Comment: Speci men Type: BLOOD SPECIMENOrdering Facility: [facility] Address: [address] [place] [address] Performed By: #### 5 7021-8 ####[facility]ORATORYCLIA [id number] [address] [place] WBC (Bld) [#/Vol] 12.55 10*3/uL High 3.70-11.00 [facility] Comment on above: Order Comment: Speci men Type: BLOOD SPECIMENOrdering Facility: [facility] Address: [address] [place] [address] Performed By: #### 5 7021-8 ####[facility] LABORATORYCLIA [id number] [address] OF [facility] CK CREATINE KINASEon 022 CK [Catalytic activity/Vol] 72 U/L Normal 51-298 [facility] Comment on above: Order Comment: Speci men Type: BLOOD SPECIMENOrdering Facility: [facility] Address: [address] [place] [address] Performed By: #### C K, 19089-1 ####[facility] LABORATORYCLIA [id number] [address] [place] CONSULT PROGon 07-08-2021 CONSULT PROG Normal [facility] CONSULT PROG Normal [facility] CSF MANUAL DIFFon 07-08-2021 DIF TTL, CSF 3 cells counted Normal [facility] Comment on above: Order Comment: Speci men Type: CEREBROSPINAL FLUIDOrdering Facility: [facility] Address: [address] [place] [address] Performed By: #### 3 4563-7, [id number] ####[facility] LABORATORYCLIA [id number] [place] [address] [place] LYMPH%, CSF 33 % Low 50-90 [facility] Comment on above: Order Comment: Speci men Type: CEREBROSPINAL FLUIDOrdering Facility: [facility] Address: [address] [place] [address] Performed By: #### 3 4563-7, [id number] ####[facility]ORATORYCLIA [id number] [place] [address] [place] MONO%, CSF 67 % High 10-50 [facility] Comment on above: Order Comment: Speci men Type: CEREBROSPINAL FLUIDOrdering Facility: [facility] Address: [address] [place] [address] Performed By: #### 3 4563-7, [id number] ####[facility]ORATORYCLIA [id number] [place] [address] [place] [address] ABD/PEL W [...] Comment: Speci men Type: CEREBROSPINAL FLUIDOrdering Facility: [facility] Address: [address] [place] [address] Performed By: #### 3 4563-7, [id number] ####[facility] LABORATORYCLIA [id number] [place] [address] [place] Clarity (Unsp spec) Clear Normal Clear [facility] Comment on above: Order Comment: Speci men Type: CEREBROSPINAL FLUIDOrdering Facility: [facility] Address: [address] [place] [address] Performed By: #### 3 4563-7, [id number] ####[facility]ORATORYCLIA [id number] [address] [place] Color (CSF) Colorless Normal Colorless [facility] Comment on above: Order Comment: Speci men Type: CEREBROSPINAL FLUIDOrdering Facility: [facility] Address: [address] [place] [address] Performed By: #### 3 4563-7, [id number] ####[facility]ORATORYCLIA [id number] [address] [place] Color (Spun CSF) Colorless Normal Colorless [facility] Comment on above: Order Comment: Speci men Type: CEREBROSPINAL FLUIDOrdering Facility: [facility] Address: [address] [place] [address] Performed By: #### 3 4563-7, [id number] ####[facility]ORATORYCLIA [id number] [address] CSF TUBE NUMBER [employer] Normal [facility] Comment on above: Order Comment: Speci men Type: CEREBROSPINAL FLUIDOrdering Facility: [facility] Address: [address] [place] [address] Performed By: #### 3 4563-7, [id number] ####[facility] LABORATORYCLIA [id number] [address] RBC Manual cnt (CSF) [#/Vol] 94 cells/uL High 0-5 [facility] Comment on above: Order Comment: Speci men Type: CEREBROSPINAL FLUIDOrdering Facility: [facility] Address: [address] [place] [address] Performed By: #### 3 4563-7, [id number] ####[facility] LABORATORYCLIA [id number] [address] WBC Manual cnt (CSF) [#/Vol] 1 cells/uL Normal 0-5 [facility] Comment on above: Order Comment: Speci men Type: CEREBROSPINAL FLUIDOrdering Facility: [facility] Address: [address] [place] [address] Performed By: #### 3 4563-7, [id number] ####[facility] LABORATORYCLIA [id number] [address] OF [facility] Comprehensive metabolic 2000 panelon 07-08-2021 Albumin [Mass/Vol] 3.6 g/dL Low 3.9-4.9 [facility] Comment on above: Order Comment: Speci men Type: BLOOD SPECIMENOrdering Facility: [facility] Address: [address] [place] [address] Performed By: #### C K, 15928-8 ####[facility]ORATORYCLIA [id number] [address] ALP [Catalytic activity/Vol] 125 U/L High 38-113 [facility] Comment on above: Order Comment: Speci men Type: BLOOD SPECIMENOrdering Facility: [facility] Address: [address] [place] [address] Performed By: #### Eileen Valdivia, 36636-0 ####[facility] LABORATORYCLIA [id number] [place] [address] [place] ALT With P-5'-P [Catalytic activity/Vol] 24 U/L Normal 10-54 [facility] Comment on above: Order Comment: Speci men Type: BLOOD SPECIMENOrdering Facility: [facility] Address: [address] [place] [address] Performed By: #### Eileen Valdivia, 16746-3 ####[facility] LABORATORYCLIA [id number] [address] STATES OF [facility] Anion gap [Moles/Vol] 16 mmol/L Normal 9-18 [facility] Comment on above: Order Comment: Speci men Type: BLOOD SPECIMENOrdering Facility: [facility] Address: [address] [place] [address] Performed By: #### Eileen Valdivia, 15201-1 ####[facility] LABORATORYCLIA [id number] [address] [place] AST With P-5'-P [Catalytic activity/Vol] 21 U/L Normal 14-40 [facility] Comment on above: Order Comment: Speci men Type: BLOOD SPECIMENOrdering Facility: [facility] Address: [address] [place] [address] Performed By: #### Eileen Valdivia, 06957-9 ####[facility] LABORATORYCLIA [id number] [address] [place] Bilirubin [Mass/Vol] 0.3 mg/dL Normal 0.2-1.3 [facility] Comment on above: Order Comment: Speci men Type: BLOOD SPECIMENOrdering Facility: [facility] Address: [address] [place] [address] Performed By: #### Eileen Valdivia, 57748-7 ####[facility] LABORATORYCLIA [id number] [address] [place] Calcium [Mass/Vol] 8.9 mg/dL Normal 8.5-10.2 [facility] Comment on above: Order Comment: Speci men Type: BLOOD SPECIMENOrdering Facility: [facility] Address: [address] [place] [address] Performed By: #### Eileen Valdivia, 26165-1 ####[facility] LABORATORYCLIA [id number] [place] [address] [place] Chloride [Moles/Vol] 96 mmol/L Low 97-105 [facility] Comment on above: Order Comment: Speci men Type: BLOOD SPECIMENOrdering Facility: [facility] Address: [address] [place] [address] Performed By: #### Eileen Valdivia, 17269-3 ####[facility] LABORATORYCLIA [id number] [address] [place] CO2 [Moles/Vol] 27 mmol/L Normal 22-30 [facility] Comment on above: Order Comment: Speci men Type: BLOOD SPECIMENOrdering Facility: [facility] Address: [address] [place] [address] Performed By: #### Eileen Valdivia, 45602-0 ####[facility] LABORATORYCLIA [id number] [address] [place] Creatinine [Mass/Vol] 0.68 mg/dL Low 0.73-1.22 [facility] Comment on above: Order Comment: Speci men Type: BLOOD SPECIMENOrdering Facility: [facility] Address: [address] [place] [address] Performed By: #### Eileen Valdivia, 25271-9 ####[facility] LABORATORYCLIA [id number] [address] ESTIMATED GLOMERULAR FILTRATION RATE 101 mL/min/1.73m??? Normal >=60 [facility] Comment on above: Order Comment: Speci men Type: BLOOD SPECIMENOrdering Facility: [facility] Address: [address] [place] [address] Result Comment: Luzmaria mated Glomerular Filtration Rate [...] actual GFR. Performed By: #### Eileen Valdivia, 29865-0 ####[facility] LABORATORYCLIA [id number] [place] [address] [place] Glucose [Mass/Vol] 130 mg/dL High 74-99 [facility] Comment on above: Order Comment: Shira feldman Type: BLOOD SPECIMENOrdering Facility: [facility] Address: [address] [place], [place] [id number] Result Comment: The [place] [employer] Association (ADA) provides guidance for cutoff [...] Standards of Medical Care in Diabetes 2016, [place] [employer]. Diabetes Care. 2016.39(Suppl 1). Performed By: #### Eileen Valdivia, 16994-0 ####[facility] LABORATORYCLIA [id number] [place] [id number] [place] Potassium [Moles/Vol] 3.9 mmol/L Normal 3.7-5.1 [facility] Comment on above: Order Comment: Shira feldman Type: BLOOD SPECIMENOrdering Facility: [facility] Address: [address] [place] [address] Performed By: #### Eileen Valdivia, 19443-0 ####[facility] LABORATORYCLIA [id number] [place] [address] [place] Protein [Mass/Vol] 7.0 g/dL Normal 6.3-8.0 [facility] Comment on above: Order Comment: Speci men Type: BLOOD SPECIMENOrdering Facility: [facility] Address: [address] [place] [address] Performed By: #### Eileen Valdivia, 71244-9 ####[facility]ORATORYCLIA [id number] [address] [place] Sodium [Moles/Vol] 139 mmol/L Normal 136-144 [facility] Comment on above: Order Comment: Speci men Type: BLOOD SPECIMENOrdering Facility: [facility] Address: [address] [place] [address] Performed By: #### Eileen Valdivia, 63707-4 ####[facility]ORATORYCLIA [id number] [address] [place] Urea nitrogen [Mass/Vol] 16 mg/dL Normal 9-24 [facility] Comment on above: Order Comment: Speci men Type: BLOOD SPECIMENOrdering Facility: [facility] Address: [address] [place] [address] Performed By: #### Eileen Valdivia, 73250-1 ####[facility]ORATORYCLIA [id number] [address] ED NOTEon 07-08-2021 ED NOTE HNO ID: [id number] Author: Lenora James RN Service: Emergency Medicine Author Type: Registered Nurse Type: ED Notes Filed: 07/08/2021 5:03 PM Note Text: Pt to OR with surgical team Normal [facility] ED NOTE HNO ID: [id number] Author: Lenora James RN Service: Emergency Medicine Author Type: Registered Nurse Type: ED Notes Filed: 07/08/2021 4:50 PM Note Text: OR team to get pt Normal [facility] ED NOTE HNO ID: [id number] Author: Lenora James RN Service: Emergency Medicine Author Type: Registered Nurse Type: ED Notes Filed: 07/08/2021 4:50 PM Note Text: Normal [facility] ED NOTE HNO ID: [id number] Author: Lenora James RN Service: Emergency Medicine Author Type: Registered Nurse Type: ED Notes Filed: 07/08/2021 4:50 PM Note Text: Spoke with presurg; pt to go to OR now [facility] ED NOTE HNO ID: [id number] Author: Lenora James RN Service: Emergency Medicine Author Type: Registered Nurse Type: ED Notes Filed: 07/08/2021 4:12 PM Note Text: Neurosurgery at beside [facility] ED NOTE HNO ID: [id number] Author: Lenora James RN Service: Emergency Medicine Author Type: Registered Nurse Type: ED Notes Filed: 07/08/2021 2:35 PM Note Text: respiratory aware of pt breathing treatments [facility] ED NOTE HNO ID: [id number] Author: Lisa Woo RN Service: ? Author Type: Registered Nurse Type: ED Notes Filed: 07/08/2021 2:20 PM Note Text: Xray notified pt is ready. [facility] ED NOTE HNO ID: [id number] Author: Lenora James RN Service: Emergency Medicine Author Type: Registered Nurse Type: ED Notes Filed: 07/08/2021 12:14 PM Note Text: CT notified regarding imaging orders placed [facility] ED NOTE Normal [facility] ED PROV NOTEon 07-08-2021 ED PROV NOTE Normal [facility] Glucose CSF-mCncon 2 Glucose (CSF) [Mass/Vol] 88 mg/dL High 40-70 [facility] Comment on above: Order Comment: Speci men Type: CEREBROSPINAL FLUIDOrdering Facility: [facility] Address: [address] [place] [address] Result Comment: Lumb ar CSF glucose values of healthy patients are approximately 60% of the plasma values and must always be compared with a concurrently measured plasma value for adequate clinical interpretation.References: 1. Glucose HK (GLUC3) [package insert V 12.0 [place]]. [employer], [place], [place]. September 2015. 2. Teresa HGarfield, Loki, H. (2015). Chapter 7: Glucose and Lactate. F. Irina rose al.(eds.), Cerebrospinal Fluid in Clinical Neurology. [place]: [employer]. Performed By: #### 2 880-3, 2342-4 ####[facility] LABORATORYCLIA [id number] [address] HIGH SENSITIVITY TROPONIN To n 07-08-2021 HIGH SENSITIVITY TAMIKO 27 ng/L High <12 [facility] Comment on above: Order Comment: Speci men Type: BLOOD SPECIMENOrdering Facility: [facility] Address: [address] [place] [address] Result Comment: When assessing risk for acute [...] By: #### H STNT ####[facility] LABORATORYCLIA [id number] [address] HIGH SENSITIVITY TAMIKO 36 ng/L High <12 [facility] Comment on above: Order Comment: Speci francia Type: BLOOD SPECIMENOrdering Facility: [facility] Address: [address] [place] [address] Result Comment: When assessing risk for acute [...] By: #### H STNT ####[facility] LABORATORYCLIA [id number] [address] OF [facility] HISTORY PHYSICALon HISTORY PHYSICAL Normal [facility] NURSING PROGon 07-08-2021 NURSING PROG Normal [facility] OPERATIVE NOon 07-08-2021 OPERATIVE NO Normal [facility] Prot CSF-mCncon 07-08-2021 Protein (CSF) [Mass/Vol] 33 mg/dL Normal 15-45 [facility] Comment on above: Order Comment: Speci men Type: CEREBROSPINAL FLUIDOrdering Facility: [facility] Address: [address] [place] [address] Performed By: #### 2 880-3, 2342-4 ####[facility] LABORATORYCLIA [id number] [address] [place] SARS-CoV-2 RNA Resp Ql MEGAN+p robeon 07-08-2021 SARS-CoV-2 (COVID-19) RNA MEGAN+probe Ql (Resp) COVID 19 RESULT: SARS-CoV-2 (Agent of COVID-19) Not Detected by RT-PCR or equivalent method. This test has been authorized by FDA under an Emergency Use Authorization (EUA). Normal [facility] Comment on above: Performed By: #### 9 4500-6 ####[facility] LABORATORYCLIA [id number] [address] STAPH AUREUS PCRon 2 S. aureus and MRSA panel MEGAN+probe (Nose) Normal Negative [facility] Comment on above: Order Comment: Speci men Type: SWAB OF INTERNAL NOSEOrdering Facility: [facility] Address: [address] [place] [address] Result Comment: Nega tive for Staphylococcus aureus by PCR.Negative for MRSA by PCR Performed By: #### S APCR ####[facility] LABORATORYCLIA [id number] [address] [place] Urinalysis complete panel (U )on 07-08-2021 Bacteria LM.HPF (Urine sed) [#/Area] Few Abnormal None Seen [facility] Comment on above: Order Comment: Speci men Type: URINE SPECIMENOrdering Facility: [facility] Address: [address] [place] [address] Performed By: #### 2 4356-8 ####[facility] LABORATORYCLIA [id number] [place] [address] [place] Bilirubin Ql (U) Negative Normal Negative [facility] Comment on above: Order Comment: Speci men Type: URINE SPECIMENOrdering Facility: [facility] Address: [address] [place] [address] Performed By: #### 2 4356-8 ####[facility] LABORATORYCLIA [id number] [address] Clarity (Unsp spec) Turbid Abnormal Clear [facility] Comment on above: Order Comment: Speci men Type: URINE SPECIMENOrdering Facility: [facility] Address: [address] [place] [address] Performed By: #### 2 4356-8 ####[facility] LABORATORYCLIA [id number] [address] Color (U) Light Yellow Normal yellow [facility] Comment on above: Order Comment: Speci men Type: URINE SPECIMENOrdering Facility: [facility] Address: [address] [place] [address] Performed By: #### 2 4356-8 ####[facility] LABORATORYCLIA [id number] [address] Glucose Test strip (U) [Mass/Vol] Negative Normal Negative [facility] Comment on above: Order Comment: Speci men Type: URINE SPECIMENOrdering Facility: [facility] Address: [address] [place] [address] Performed By: #### 2 4356-8 ####[facility] LABORATORYCLIA [id number] [address] Hemoglobin Ql (U) Negative Normal Negative [facility] Comment on above: Order Comment: Speci men Type: URINE SPECIMENOrdering Facility: [facility] Address: [address] [place] [address] Performed By: #### 2 4356-8 ####[facility] LABORATORYCLIA [id number] [address] Hyaline casts (Urine sed) [#/Area] 1-3 /LPF Abnormal 0 /LPF [facility] Comment on above: Order Comment: Speci men Type: URINE SPECIMENOrdering Facility: [facility] Address: [address] [place] [address] Performed By: #### 2 4356-8 ####[facility]ORATORYCLIA [id number] [address] Ketones Ql (U) Negative Normal Negative [facility] Comment on above: Order Comment: Speci men Type: URINE SPECIMENOrdering Facility: [facility] Address: [address] [place] [address] Performed By: #### 2 4356-8 ####[facility] LABORATORYCLIA [id number] [address] Leukocyte esterase Test strip Ql (U) Negative Normal Negative [facility] Comment on above: Order Comment: Speci men Type: URINE SPECIMENOrdering Facility: [facility] Address: [address] [place] [address] Performed By: #### 2 4356-8 ####[facility] LABORATORYCLIA [id number] [address] [place] Nitrite Ql (U) Negative Normal Negative [facility] Comment on above: Order Comment: Speci men Type: URINE SPECIMENOrdering Facility: [facility] Address: [address] [place] [address] Performed By: #### 2 4356-8 ####[facility]ORATORYCLIA [id number] [address] [place] pH (U) 5.0 [pH] Normal 5.0-8.0 [facility] Comment on above: Order Comment: Speci men Type: URINE SPECIMENOrdering Facility: [facility] Address: [address] [place] [address] Performed By: #### 2 4356-8 ####[facility]ORATORYCLIA [id number] [address] [place] Protein (U) [Mass/Vol] Negative Normal Negative [facility] Comment on above: Order Comment: Speci men Type: URINE SPECIMENOrdering Facility: [facility] Address: [address] [place] [address] Performed By: #### 2 4356-8 ####[facility] LABORATORYCLIA [id number] [address] RBC LM.HPF (Urine sed) [#/Area] 11-25 /HPF Abnormal 0-3 /HPF [facility] Comment on above: Order Comment: Speci men Type: URINE SPECIMENOrdering Facility: [facility] Address: [address] [place] [address] Performed By: #### 2 4356-8 ####[facility] LABORATORYCLIA [id number] [address] Specific gravity (U) [Rel density] 1.018 Normal 1.005-1.030 [facility] Comment on above: Order Comment: Speci men Type: URINE SPECIMENOrdering Facility: [facility] Address: [address] [place] [address] Performed By: #### 2 4356-8 ####[facility] LABORATORYCLIA [id number] [address] Urobilinogen Ql (U) Normal Normal Negative [facility] Comment on above: Order Comment: Speci men Type: URINE SPECIMENOrdering Facility: [facility] Address: [address] [place] [address] Performed By: #### 2 4356-8 ####[facility] LABORATORYCLIA [id number] [address] WBC LM.HPF (Urine sed) [#/Area] /[HPF] Abnormal 0-5 /HPF [facility] Comment on above: Order Comment: Speci men Type: URINE SPECIMENOrdering Facility: [facility] Address: [address] [place] [address] Performed By: #### 2 4356-8 ####[facility] LABORATORYCLIA [id number] [address] Vancomycin random [Mass/Vol] on 07-08-2021 Vancomycin [Mass/Vol] 31.0 ug/mL High 10.0-20.0 [facility] Comment on above: Order Comment: Speci men Type: BLOOD SPECIMENOrdering Facility: [facility] Address: [address] [place] [address] Result Comment: Refe rence ranges and high/low indicator flags are provided as general guidelines only. The treating physician must determine appropriate target levels/dosing based on the specific clinical situation. Performed By: #### 4 091-5 ####[facility] LABORATORYCLIA [id number] [address] OF [facility] XR ABD 2V SUPINE W [...] Hospital HISTORY PHYSICALon HISTORY PHYSICAL HNO ID: [id number] Author: Amy Beltran MD Service: ? Author Type: Physician Type: HANDP Filed: 06/30/2021 6:42 PM Note Text: Connected Care Unit History and Physical Facility: [facility] Level of Care: Skilled Admission Date: [...] regarding the above plan. Total time spent [id number] and/or counseling and coordinating care on the skilled care unit for patient was approximately 45 minutes SUBJECTIVE (HISTORY) Chief Complaint: Confusion, infection, blood clot. Andrew Sifuentes is being seen today for correction facility (SNF) admission AND management of weakness, tube feed, infected retroperitoneal infection and seizure. HPI: This is a 71 year old male who presents from [facility] with primary admitting diagnosis of Seizure, enteral [...] CT brain concerning for hydrocephalus. Tip of [employer] shunt was found to be in the [...] Status: Fu (more content not included)... Normal [facility] Basic metabolic 2000 panelon 06-28-2021 Anion gap [Moles/Vol] 7 mmol/L Low 9-18 [facility] Comment on above: Order Comment: Speci men Type: BLOOD SPECIMENOrdering Facility: [facility] Address: [address] [place] [address] [place] [address] Performed By: #### 2 43205-08, ####[facility] LABORATORYCLIA [id number] [place] [address] [place] Calcium [Mass/Vol] 8.8 mg/dL Normal 8.5-10.2 [facility] Comment on above: Order Comment: Speci men Type: BLOOD SPECIMENOrdering Facility: [facility] Address: [address] [place] [address] Performed By: #### 2 2, ####[facility] LABORATORYCLIA [id number] [place] [address] [place] Chloride [Moles/Vol] 103 mmol/L Normal 97-105 [facility] Comment on above: Order Comment: Speci men Type: BLOOD SPECIMENOrdering Facility: [facility] Address: [address] [place] [address] Performed By: #### 2 4320-06, ####[facility] LABORATORYCLIA [id number] [place] [address] [place] CO2 [Moles/Vol] 28 mmol/L Normal 22-30 [facility] Comment on above: Order Comment: Speci men Type: BLOOD SPECIMENOrdering Facility: [facility] Address: [address] [place] [address] Performed By: #### 2 4320-06, ####[facility] LABORATORYCLIA [id number] [place] [address] [place] Creatinine [Mass/Vol] 0.57 mg/dL Low 0.73-1.22 [facility] Comment on above: Order Comment: Speci men Type: BLOOD SPECIMENOrdering Facility: [facility] Address: [address] [place] [address] Performed By: #### 2 4320-06, ####[facility] LABORATORYCLIA [id number] [place] [address] [place] GFR/1.73 sq M.predicted MDRD (S/P/Bld) [Vol rate/Area] mL/min/{1.73_m2} Normal [facility] Comment on above: Order Comment: Shira feldman Type: BLOOD SPECIMENOrdering Facility: [facility] Address: [address] [place] [address] Result Comment: >60e GFR (Estimated GFR) Units [...] actual GFR. Performed By: #### 2 4321-2, 47684-6 ####[facility] LABORATORYCLIA [id number] [place] [address] [place] Glucose [Mass/Vol] 120 mg/dL High 74-99 [facility] Comment on above: Order Comment: Shira feldman Type: BLOOD SPECIMENOrdering Facility: [facility] Address: [address] [place] [address] Result Comment: The [place] [employer] (ADA) provides guidance for cutoff [...] Standards of Medical Care in Diabetes 2016, [place] [employer]. Diabetes Care. 2016.39(Suppl 1). Performed By: #### 2 4321-2, 16610-3 ####[facility] LABORATORYCLIA [id number] [place] [address] [place] Potassium [Moles/Vol] 3.8 mmol/L Normal 3.7-5.1 [facility] Comment on above: Order Comment: Speci men Type: BLOOD SPECIMENOrdering Facility: [facility] Address: [address] [place] [address] Performed By: #### 2 4321-2, ####[facility] LABORATORYCLIA [id number] [address] STATES [facility] Sodium [Moles/Vol] 138 mmol/L Normal 136-144 [facility] Comment on above: Order Comment: Speci men Type: BLOOD SPECIMENOrdering Facility: [facility] Address: [address] [place] [address] Performed By: #### 2 4321-2, ####[facility] LABORATORYCLIA [id number] [address] STATES [facility] Urea nitrogen [Mass/Vol] 24 mg/dL Normal 9-24 [facility] Comment on above: Order Comment: Speci men Type: BLOOD SPECIMENOrdering Facility: [facility] Address: [address] [place] [address] Performed By: #### 2 4321-2, ####[facility] LABORATORYCLIA [id number] [address] CASE MANAGEMon 06-28-2021 CASE MANAGEM Normal [facility] CBC panel Auto (Bld)on 06-28 Erythrocyte distribution width (RBC) [Ratio] 15.6 % High 11.5-15.0 [facility] Comment on above: Order Comment: Speci men Type: BLOOD SPECIMENOrdering Facility: [facility] Address: [address] [place] [address] Performed By: #### 5 8410-2 ####[facility] LABORATORYCLIA [id number] [address] Hematocrit (Bld) [Volume fraction] 30.5 % Low 39.0-51.0 [facility] Comment on above: Order Comment: Speci men Type: BLOOD SPECIMENOrdering Facility: [facility] Address: [address] [place] [address] Performed By: #### 5 8410-2 ####[facility] LABORATORYCLIA [id number] [address] Hemoglobin (Bld) [Mass/Vol] 9.4 g/dL Low 13.0-17.0 [facility] Comment on above: Order Comment: Speci men Type: BLOOD SPECIMENOrdering Facility: [facility] Address: [address] [place] [address] Performed By: #### 5 8410-2 ####[facility] LABORATORYCLIA [id number] [address] MCH (RBC) [Entitic mass] 27.8 pg Normal 26.0-34.0 [facility] Comment on above: Order Comment: Speci men Type: BLOOD SPECIMENOrdering Facility: [facility] Address: [address] [place] [address] Performed By: #### 5 8410-2 ####[facility] LABORATORYCLIA [id number] [address] MCHC (RBC) [Mass/Vol] 30.8 g/dL Normal 30.5-36.0 [facility] Comment on above: Order Comment: Speci men Type: BLOOD SPECIMENOrdering Facility: [facility] Address: [address] [place] [address] Performed By: #### 5 8410-2 ####[facility] LABORATORYCLIA [id number] [address] STATES [facility] MCV (RBC) [Entitic vol] 90.2 fL Normal 80.0-100.0 [facility] Comment on above: Order Comment: Speci men Type: BLOOD SPECIMENOrdering Facility: [facility] Address: [address] [place] [address] Performed By: #### 5 8410-2 ####[facility] LABORATORYCLIA [id number] [place] [address] [place] Nucleated RBC (Bld) [#/Vol] 10*3/uL Normal <0.01 [facility] Comment on above: Order Comment: Speci men Type: BLOOD SPECIMENOrdering Facility: [facility] Address: [address] [place] [address] Performed By: #### 5 8410-2 ####[facility] LABORATORYCLIA [id number] [place] [address] [place] Platelet mean volume (Bld) [Entitic vol] 9.9 fL Normal 9.0-12.7 [facility] Comment on above: Order Comment: Speci men Type: BLOOD SPECIMENOrdering Facility: [facility] Address: [address] [place] [address] Performed By: #### 5 8410-2 ####[facility] LABORATORYCLIA [id number] [address] [place] Platelets (Bld) [#/Vol] 333 10*3/uL Normal 150-400 [facility] Comment on above: Order Comment: Speci men Type: BLOOD SPECIMENOrdering Facility: [facility] Address: [address] [place] [address] Performed By: #### 5 8410-2 ####[facility] LABORATORYCLIA [id number] [place] [address] [place] RBC (Bld) [#/Vol] 3.38 10*6/uL Low 4.20-6.00 [facility] Comment on above: Order Comment: Speci men Type: BLOOD SPECIMENOrdering Facility: [facility] Address: [address] [address] Performed By: #### 5 8410-2 ####[facility] LABORATORYCLIA [id number] [place] [address] [place] WBC (Bld) [#/Vol] 9.71 10*3/uL Normal 3.70-11.00 [facility] Comment on above: Order Comment: Speci men Type: BLOOD SPECIMENOrdering Facility: [facility] Address: [address] [address] Performed By: #### 5 8410-2 ####[facility] LABORATORYCLIA [id number] [address] [place] CNDSon 06-28-2021 CNDS Normal [facility] CONSULT PROGon 06-28-2021 CONSULT PROG Normal [facility] Magnesium SerPl-mCncon 06-28 Magnesium [Mass/Vol] 2.2 mg/dL Normal 1.7-2.3 [facility] Comment on above: Order Comment: Speci men Type: BLOOD SPECIMENOrdering Facility: [facility] Address: [address] [address] Performed By: #### 2 4321-2, ####[facility] LABORATORYCLIA [id number] [address] Vancomycin random [Mass/Vol] on 06-28-2021 Vancomycin [Mass/Vol] 23.0 ug/mL High 10.0-20.0 [facility] Comment on above: Order Comment: Speci men Type: BLOOD SPECIMENOrdering Facility: [facility] Address: [address] [place] [address] Result Comment: Refe rence ranges and high/low indicator flags are provided as general guidelines only. The treating physician must determine appropriate target levels/dosing based on the specific clinical situation. Performed By: #### 4 091-5 ####[facility] LABORATORYCLIA [id number] [address] OF [facility] ALLIED HEALTHon 06-27-2021 ALLIED HEALTH Normal [facility] Basic metabolic 2000 panelon 06-27-2021 Anion gap [Moles/Vol] 10 mmol/L Normal 9-18 [facility] Comment on above: Order Comment: Speci men Type: BLOOD SPECIMENOrdering Facility: [facility] Address: [address] [address] Performed By: #### 2 4321-2, ####[facility]ORATORYCLIA [id number] [place] [address] [place] Calcium [Mass/Vol] 8.8 mg/dL Normal 8.5-10.2 [facility] Comment on above: Order Comment: Speci men Type: BLOOD SPECIMENOrdering Facility: [facility] Address: [address] [place] [address] Performed By: #### 2 4321-2, ####[facility] LABORATORYCLIA [id number] [place] [address] [place] Chloride [Moles/Vol] 104 mmol/L Normal 97-105 [facility] Comment on above: Order Comment: Speci men Type: BLOOD SPECIMENOrdering Facility: [facility] Address: [address] [place] [address] Performed By: #### 2 4321-2, ####[facility] LABORATORYCLIA [id number] [address] [place] CO2 [Moles/Vol] 26 mmol/L Normal 22-30 [facility] Comment on above: Order Comment: Speci men Type: BLOOD SPECIMENOrdering Facility: [facility] Address: [address] [place] [address] Performed By: #### 2 4320-2, ####[facility] LABORATORYCLIA [id number] [place] [address] [place] Creatinine [Mass/Vol] 0.57 mg/dL Low 0.73-1.22 [facility] Comment on above: Order Comment: Speci men Type: BLOOD SPECIMENOrdering Facility: [facility] Address: [address] [place] [address] Performed By: #### 2 4320-2, ####[facility] LABORATORYCLIA [id number] [address] [place] GFR/1.73 sq M.predicted MDRD (S/P/Bld) [Vol rate/Area] mL/min/{1.73_m2} Normal [facility] Comment on above: Order Comment: Speci men Type: BLOOD SPECIMENOrdering Facility: [facility] Address: [address] [place], [place] [address] Result Comment: >60e GFR (Estimated GFR) Units [...] actual GFR. Performed By: #### 2 4321-2, 36140-8 ####[facility] LABORATORYCLIA [id number] [place] [address] [place] Glucose [Mass/Vol] 133 mg/dL High 74-99 [facility] Comment on above: Order Comment: Shira feldman Type: BLOOD SPECIMENOrdering Facility: [facility] Address: [address] [place] [address] Result Comment: The [place] Diabetes [employer] (ADA) provides guidance for cutoff [...] Standards of Medical Care in Diabetes 2016, [place] [employer]. Diabetes Care. 2016.39(Suppl 1). Performed By: #### 2 4321-2, 23371-6 ####[facility] LABORATORYCLIA [id number] [place] [address] [place] Potassium [Moles/Vol] 4.2 mmol/L Normal 3.7-5.1 [facility] Comment on above: Order Comment: Speci men Type: BLOOD SPECIMENOrdering Facility: [facility] Address: [address] [place] [address] Performed By: #### 2 4321-2, 08669-2 ####[facility] LABORATORYCLIA [id number] [address] Sodium [Moles/Vol] 140 mmol/L Normal 136-144 [facility] Comment on above: Order Comment: Speci men Type: BLOOD SPECIMENOrdering Facility: [facility] Address: [address] [place] [address] Performed By: #### 2 4321-2, ####[facility] LABORATORYCLIA [id number] [address] STATES OF [facility] Urea nitrogen [Mass/Vol] 24 mg/dL Normal 9-24 [facility] Comment on above: Order Comment: Speci men Type: BLOOD SPECIMENOrdering Facility: [facility] Address: [address] [place] [address] Performed By: #### 2 432-2, ####[facility] LABORATORYCLIA [id number] [address] CASE MANAGEMon 06-27-2021 CASE MANAGEM Normal [facility] CBC panel Auto (Bld)on 06-27 Erythrocyte distribution width (RBC) [Ratio] 15.8 % High 11.5-15.0 [facility] Comment on above: Order Comment: Speci men Type: BLOOD SPECIMENOrdering Facility: [facility] Address: [address] [place] [address] Performed By: #### 5 8410-2 ####[facility] LABORATORYCLIA [id number] [address] Hematocrit (Bld) [Volume fraction] 31.4 % Low 39.0-51.0 [facility] Comment on above: Order Comment: Speci men Type: BLOOD SPECIMENOrdering Facility: [facility] Address: [address] [place] [address] Performed By: #### 5 8410-2 ####[facility] LABORATORYCLIA [id number] [address] Hemoglobin (Bld) [Mass/Vol] 9.3 g/dL Low 13.0-17.0 [facility] Comment on above: Order Comment: Speci men Type: BLOOD SPECIMENOrdering Facility: [facility] Address: [address] [place] [address] Performed By: #### 5 8410-2 ####[facility] LABORATORYCLIA [id number] [address] MCH (RBC) [Entitic mass] 27.0 pg Normal 26.0-34.0 [facility] Comment on above: Order Comment: Speci men Type: BLOOD SPECIMENOrdering Facility: [facility] Address: [address] [place] [address] Performed By: #### 5 8410-2 ####[facility] LABORATORYCLIA [id number] [address] MCHC (RBC) [Mass/Vol] 29.6 g/dL Low 30.5-36.0 [facility] Comment on above: Order Comment: Speci men Type: BLOOD SPECIMENOrdering Facility: [facility] Address: [address] [place] [address] Performed By: #### 5 8410-2 ####[facility] LABORATORYCLIA [id number] [address] MCV (RBC) [Entitic vol] 91.3 fL Normal 80.0-100.0 [facility] Comment on above: Order Comment: Speci men Type: BLOOD SPECIMENOrdering Facility: [facility] Address: [address] [place] [address] Performed By: #### 5 8410-2 ####[facility] LABORATORYCLIA [id number] [address] Nucleated RBC (Bld) [#/Vol] 10*3/uL Normal <0.01 [facility] Comment on above: Order Comment: Speci men Type: BLOOD SPECIMENOrdering Facility: [facility] Address: [address] [place] [address] Performed By: #### 5 8410-2 ####[facility] LABORATORYCLIA [id number] [address] [place] Platelet mean volume (Bld) [Entitic vol] 10.3 fL Normal 9.0-12.7 [facility] Comment on above: Order Comment: Speci men Type: BLOOD SPECIMENOrdering Facility: [facility] Address: [address] [place] [address] Performed By: #### 5 8410-2 ####[facility] LABORATORYCLIA [id number] [address] [place] Platelets (Bld) [#/Vol] 359 10*3/uL Normal 150-400 [facility] Comment on above: Order Comment: Speci men Type: BLOOD SPECIMENOrdering Facility: [facility] Address: [address] [place] [address] Performed By: #### 5 8410-2 ####[facility] LABORATORYCLIA [id number] [place] [address] [place] RBC (Bld) [#/Vol] 3.44 10*6/uL Low 4.20-6.00 [facility] Comment on above: Order Comment: Speci men Type: BLOOD SPECIMENOrdering Facility: [facility] Address: [address] [place], [place] [address] Performed By: #### 5 8410-2 ####[facility] LABORATORYCLIA [id number] [place] [address] [place] WBC (Bld) [#/Vol] 10.73 10*3/uL Normal 3.70-11.00 [facility] Comment on above: Order Comment: Speci men Type: BLOOD SPECIMENOrdering Facility: [facility] Address: [address] [place] [address] Performed By: #### 5 8410-2 ####[facility] LABORATORYCLIA [id number] [place] [address] [place] Magnesium [facility] 06-27 Magnesium [Mass/Vol] 2.2 mg/dL Normal 1.7-2.3 [facility] Comment on above: Order Comment: Speci men Type: BLOOD SPECIMENOrdering Facility: [facility] Address: [address] [place] [address] Performed By: #### 2 4321-2, 84772-9 ####[facility] LABORATORYCLIA [id number] [place] [address] [place] NT-proBNP SerPl-[facility] 06-27 Natriuretic peptide.B prohormone N-Terminal [Mass/Vol] 184 pg/mL High <125 [facility] Comment on above: Order Comment: Speci men Type: BLOOD SPECIMENOrdering Facility: [facility] Address: [address] [place] [address] Performed By: #### 3 3762-6 ####[facility] LABORATORYCLIA [id number] [place] [address] [place] NUTRITIONon 06-27-2021 NUTRITION [...] Comment: Speci men Type: BLOOD SPECIMENOrdering Facility: [facility] Address: [address] [place] [address] Performed By: #### 1 9123-9, 81868-8 ####[facility] LABORATORYCLIA [id number] [place] [address] [place] Calcium [Mass/Vol] 8.7 mg/dL Normal 8.5-10.2 [facility] Comment on above: Order Comment: Speci men Type: BLOOD SPECIMENOrdering Facility: [facility] Address: [address] [address] Performed By: #### 1 9123-9, 14540-2 ####[facility] LABORATORYCLIA [id number] [address] [place] Chloride [Moles/Vol] 105 mmol/L Normal 97-105 [facility] Comment on above: Order Comment: Speci men Type: BLOOD SPECIMENOrdering Facility: [facility] Address: [address] [place] [address] Performed By: #### 1 9123-9, 98558-9 ####[facility] LABORATORYCLIA [id number] [address] [place] CO2 [Moles/Vol] 26 mmol/L Normal 22-30 [facility] Comment on above: Order Comment: Speci men Type: BLOOD SPECIMENOrdering Facility: [facility] Address: [address] [place] [address] Performed By: #### 1 9123-9, 93048-9 ####[facility] LABORATORYCLIA [id number] [place] [address] [place] Creatinine [Mass/Vol] 0.56 mg/dL Low 0.73-1.22 [facility] Comment on above: Order Comment: Speci men Type: BLOOD SPECIMENOrdering Facility: [facility] Address: [address] [place] [address] Performed By: #### 1 9123-9, 74288-9 ####[facility] LABORATORYCLIA [id number] [place] [address] [place] GFR/1.73 sq M.predicted MDRD (S/P/Bld) [Vol rate/Area] mL/min/{1.73_m2} Normal [facility] Comment on above: Order Comment: Speci men Type: BLOOD SPECIMENOrdering Facility: [facility] Address: [address] [place] [address] Result Comment: >60e GFR (Estimated GFR) Units [...] actual GFR. Performed By: #### 1 9123-9, 43813-4 ####[facility]ITALCLIA [id number] [place] [address] [place] Glucose [Mass/Vol] 134 mg/dL High 74-99 [facility] Comment on above: Order Comment: Shira feldman Type: BLOOD SPECIMENOrdering Facility: [facility] Address: [address] [place] [address] Result Comment: The [place] [employer] (ADA) provides guidance for cutoff [...] Standards of Medical Care in Diabetes 2016, [place] [employer]. Diabetes Care. 2016.39(Suppl 1). Performed By: #### 1 9123-9, 68702-4 ####[facility] LABORATORYCLIA [id number] [place] [address] [place] Potassium [Moles/Vol] 3.8 mmol/L Normal 3.7-5.1 [facility] Comment on above: Order Comment: Shira feldman Type: BLOOD SPECIMENOrdering Facility: [facility] Address: [address] [place], [place] [id number] Performed By: #### 1 9123-9, 92889-0 ####[facility] LABORATORYCLIA [id number] [address] STATES [facility] Sodium [Moles/Vol] 140 mmol/L Normal 136-144 [facility] Comment on above: Order Comment: Speci men Type: BLOOD SPECIMENOrdering Facility: [facility] Address: [address] [place] [address] Performed By: #### 1 9123-9, 31648-7 ####[facility] LABORATORYCLIA [id number] [address] [place] Urea nitrogen [Mass/Vol] 24 mg/dL Normal 9-24 [facility] Comment on above: Order Comment: Speci men Type: BLOOD SPECIMENOrdering Facility: [facility] Address: [address] [place] [address] Performed By: #### 1 9123-9, 96558-1 ####[facility] LABORATORYCLIA [id number] [address] STATES [facility] CBC panel Auto (Bld)on 06-26 Erythrocyte distribution width (RBC) [Ratio] 15.9 % High 11.5-15.0 [facility] Comment on above: Order Comment: Speci men Type: BLOOD SPECIMENOrdering Facility: [facility] Address: [address] [place] [address] Performed By: #### 5 8410-2 ####[facility] LABORATORYCLIA [id number] [address] STATES [facility] Hematocrit (Bld) [Volume fraction] 29.8 % Low 39.0-51.0 [facility] Comment on above: Order Comment: Speci men Type: BLOOD SPECIMENOrdering Facility: [facility] Address: [address] [place] [address] Performed By: #### 5 8410-2 ####[facility] LABORATORYCLIA [id number] [address] [place] Hemoglobin (Bld) [Mass/Vol] 9.1 g/dL Low 13.0-17.0 [facility] Comment on above: Order Comment: Speci men Type: BLOOD SPECIMENOrdering Facility: [facility] Address: [address] [place] [address] Performed By: #### 5 8410-2 ####[facility] LABORATORYCLIA [id number] [address] MCH (RBC) [Entitic mass] 27.8 pg Normal 26.0-34.0 [facility] Comment on above: Order Comment: Speci men Type: BLOOD SPECIMENOrdering Facility: [facility] Address: [address] [place] [address] Performed By: #### 5 8410-2 ####[facility] LABORATORYCLIA [id number] [address] MCHC (RBC) [Mass/Vol] 30.5 g/dL Normal 30.5-36.0 [facility] Comment on above: Order Comment: Speci men Type: BLOOD SPECIMENOrdering Facility: [facility] Address: [address] [place] [address] Performed By: #### 5 8410-2 ####[facility] LABORATORYCLIA [id number] [address] MCV (RBC) [Entitic vol] 91.1 fL Normal 80.0-100.0 [facility] Comment on above: Order Comment: Speci men Type: BLOOD SPECIMENOrdering Facility: [facility] Address: [address] [place] [address] Performed By: #### 5 8410-2 ####[facility] LABORATORYCLIA [id number] [address] Nucleated RBC (Bld) [#/Vol] 10*3/uL Normal <0.01 [facility] Comment on above: Order Comment: Speci men Type: BLOOD SPECIMENOrdering Facility: [facility] Address: [address] [place] [address] Performed By: #### 5 8410-2 ####[facility] LABORATORYCLIA [id number] [address] [place] Platelet mean volume (Bld) [Entitic vol] 10.3 fL Normal 9.0-12.7 [facility] Comment on above: Order Comment: Speci men Type: BLOOD SPECIMENOrdering Facility: [facility] Address: [address] [place] [address] Performed By: #### 5 8410-2 ####[facility] LABORATORYCLIA [id number] [address] [place] Platelets (Bld) [#/Vol] 336 10*3/uL Normal 150-400 [facility] Comment on above: Order Comment: Speci men Type: BLOOD SPECIMENOrdering Facility: [facility] Address: [address] [place] [address] Performed By: #### 5 8410-2 ####[facility] LABORATORYCLIA [id number] [address] [place] RBC (Bld) [#/Vol] 3.27 10*6/uL Low 4.20-6.00 [facility] Comment on above: Order Comment: Speci men Type: BLOOD SPECIMENOrdering Facility: [facility] Address: [address] [place] [address] Performed By: #### 5 8410-2 ####[facility] LABORATORYCLIA [id number] [address] [place] WBC (Bld) [#/Vol] 9.14 10*3/uL Normal 3.70-11.00 [facility] Comment on above: Order Comment: Speci men Type: BLOOD SPECIMENOrdering Facility: [facility] Address: [address] [place] [address] Performed By: #### 5 8410-2 ####[facility] LABORATORYCLIA [id number] [address] [place] CONSULT PROGon 06-26-2021 CONSULT PROG Normal [facility] Magnesium SerPl-mCncon 02-20 -2022 Magnesium [Mass/Vol] 2.2 mg/dL Normal 1.7-2.3 [facility] Comment on above: Order Comment: Speci men Type: BLOOD SPECIMENOrdering Facility: [facility] Address: [address] [place] [address] Performed By: #### 1 9123-9, 30855-4 ####[facility] LABORATORYCLIA [id number] [address] [place] NURSING PROGon 06-26-2021 NURSING PROG Normal [facility] NURSING PROG Normal [facility] Basic metabolic 2000 panelon 06-25-2021 Anion gap [Moles/Vol] 8 mmol/L Low 9-18 [facility] Comment on above: Order Comment: Speci men Type: BLOOD SPECIMENOrdering Facility: [facility] Address: [address] [place] [address] Performed By: #### 2 4321-2, ####[facility] LABORATORYCLIA [id number] [place] [address] [place] Calcium [Mass/Vol] 8.8 mg/dL Normal 8.5-10.2 [facility] Comment on above: Order Comment: Speci men Type: BLOOD SPECIMENOrdering Facility: [facility] Address: [address] [place] [address] Performed By: #### 2 4321-2, ####[facility] LABORATORYCLIA [id number] [place] [address] [place] Chloride [Moles/Vol] 105 mmol/L Normal 97-105 [facility] Comment on above: Order Comment: Speci men Type: BLOOD SPECIMENOrdering Facility: [facility] Address: [address] [place] [address] Performed By: #### 2 4321-2, ####[facility] LABORATORYCLIA [id number] [place] [address] [place] CO2 [Moles/Vol] 27 mmol/L Normal 22-30 [facility] Comment on above: Order Comment: Speci francia Type: BLOOD SPECIMENOrdering Facility: [facility] Address: [address] [id number] Performed By: #### 2 432-, ####[facility] LABORATORYCLIA [id number] [place] [address] [place] Creatinine [Mass/Vol] 0.59 mg/dL Low 0.73-1.22 [facility] Comment on above: Order Comment: Speci men Type: BLOOD SPECIMENOrdering Facility: [facility] Address: [address] [place] [address] Performed By: #### 2 43205-08, ####[facility]ITALCLIA [id number] [place] [address] [place] GFR/1.73 sq M.predicted MDRD (S/P/Bld) [Vol rate/Area] mL/min/{1.73_m2} Normal [facility] Comment on above: Order Comment: Shira francia Type: BLOOD SPECIMENOrdering Facility: [facility] Address: [address] [place] [address] Result Comment: >60e GFR (Estimated GFR) Units [...] By: #### 2 432-, ####[facility] LABORATORYCLIA [id number] [place] [address] [place] Glucose [Mass/Vol] 132 mg/dL High 74-99 [facility] Comment on above: Order Comment: Johncara feldman Type: BLOOD SPECIMENOrdering Facility: [facility] Address: [address] [place], [place] [phone] Result Comment: The [place] [employer] (ADA) provides guidance for cutoff [...] Standards of Medical Care in Diabetes 2016, [place] [employer]. Diabetes Care. 2016.39(Suppl 1). Performed By: #### 2 4320-06, ####[facility] LABORATORYCLIA [id number] [place] [address] [place] Potassium [Moles/Vol] 3.9 mmol/L Normal 3.7-5.1 [facility] Comment on above: Order Comment: Speci men Type: BLOOD SPECIMENOrdering Facility: [facility] Address: [address] [address] Performed By: #### 2 4320-06, ####[facility] LABORATORYCLIA [id number] [place] [address] [place] Sodium [Moles/Vol] 140 mmol/L Normal 136-144 [facility] Comment on above: Order Comment: Speci men Type: BLOOD SPECIMENOrdering Facility: [facility] Address: [address] [address] Performed By: #### 2 4320-06, ####[facility] LABORATORYCLIA [id number] [place] [address] [place] Urea nitrogen [Mass/Vol] 24 mg/dL Normal 9-24 [facility] Comment on above: Order Comment: Speci men Type: BLOOD SPECIMENOrdering Facility: [facility] Address: [address] [address] Performed By: #### 2 4320-06, 87177-7 ####[facility] LABORATORYCLIA [id number] [address] [place] CASE MANAGEMon 06-25-2021 CASE MANAGEM Normal [facility] CBC panel Auto (Bld)on 06-25 Erythrocyte distribution width (RBC) [Ratio] 15.9 % High 11.5-15.0 [facility] Comment on above: Order Comment: Speci men Type: BLOOD SPECIMENOrdering Facility: [facility] Address: [address] [place] [address] Performed By: #### 5 8410-2 ####[facility] LABORATORYCLIA [id number] [address] Hematocrit (Bld) [Volume fraction] 31.0 % Low 39.0-51.0 [facility] Comment on above: Order Comment: Speci men Type: BLOOD SPECIMENOrdering Facility: [facility] Address: [address] [place] [address] Performed By: #### 5 8410-2 ####[facility] LABORATORYCLIA [id number] [address] Hemoglobin (Bld) [Mass/Vol] 9.4 g/dL Low 13.0-17.0 [facility] Comment on above: Order Comment: Speci men Type: BLOOD SPECIMENOrdering Facility: [facility] Address: [address] [place] [address] Performed By: #### 5 8410-2 ####[facility] LABORATORYCLIA [id number] [address] [place] MCH (RBC) [Entitic mass] 28.1 pg Normal 26.0-34.0 [facility] Comment on above: Order Comment: Speci men Type: BLOOD SPECIMENOrdering Facility: [facility] Address: [address] [place] [address] Performed By: #### 5 8410-2 ####[facility] LABORATORYCLIA [id number] [address] [place] MCHC (RBC) [Mass/Vol] 30.3 g/dL Low 30.5-36.0 [facility] Comment on above: Order Comment: Speci men Type: BLOOD SPECIMENOrdering Facility: [facility] Address: [address] [place] [address] Performed By: #### 5 8410-2 ####[facility]ORATORYCLIA [id number] [address] [place] MCV (RBC) [Entitic vol] 92.5 fL Normal 80.0-100.0 [facility] Comment on above: Order Comment: Speci men Type: BLOOD SPECIMENOrdering Facility: [facility] Address: [address] [place] [address] Performed By: #### 5 8410-2 ####[facility] LABORATORYCLIA [id number] [address] STATES OF [facility] Nucleated RBC (Bld) [#/Vol] 10*3/uL Normal <0.01 [facility] Comment on above: Order Comment: Speci men Type: BLOOD SPECIMENOrdering Facility: [facility] Address: [address] [place] [address] Performed By: #### 5 8410-2 ####[facility] LABORATORYCLIA [id number] [address] [place] Platelet mean volume (Bld) [Entitic vol] 10.5 fL Normal 9.0-12.7 [facility] Comment on above: Order Comment: Speci men Type: BLOOD SPECIMENOrdering Facility: [facility] Address: [address] [place] [address] Performed By: #### 5 8410-2 ####[facility]ORATORYCLIA [id number] [address] [place] Platelets (Bld) [#/Vol] 311 10*3/uL Normal 150-400 [facility] Comment on above: Order Comment: Speci men Type: BLOOD SPECIMENOrdering Facility: [facility] Address: [address] [place] [address] Performed By: #### 5 8410-2 ####[facility] LABORATORYCLIA [id number] [address] STATES OF [facility] RBC (Bld) [#/Vol] 3.35 10*6/uL Low 4.20-6.00 [facility] Comment on above: Order Comment: Speci men Type: BLOOD SPECIMENOrdering Facility: [facility] Address: [address] [place] [address] Performed By: #### 5 8410-2 ####[facility]ORATORYCLIA [id number] [address] OF [facility] WBC (Bld) [#/Vol] 9.57 10*3/uL Normal 3.70-11.00 [facility] Comment on above: Order Comment: Speci men Type: BLOOD SPECIMENOrdering Facility: [facility] Address: [address] [place] [address] Performed By: #### 5 8410-2 ####[facility]ORATORYCLIA [id number] [address] [place] Magnesium SerPl-mCncon 06-25 Magnesium [Mass/Vol] 2.4 mg/dL High 1.7-2.3 [facility] Comment on above: Order Comment: Speci men Type: BLOOD SPECIMENOrdering Facility: [facility] Address: [address] [place] [address] Performed By: #### 2 4321-2, 09104-8 ####[facility]ORATORYCLIA [id number] [address] [place] Basic metabolic 2000 panelon 06-24-2021 Anion gap [Moles/Vol] 9 mmol/L Normal -18 [facility] Comment on above: Order Comment: Speci men Type: BLOOD SPECIMENOrdering Facility: [facility] Address: [address] [place] [address] Performed By: #### 1 9123-9, 61415-0 ####[facility]ORATORYCLIA [id number] [place] [address] [place] Calcium [Mass/Vol] 8.6 mg/dL Normal 8.5-10.2 [facility] Comment on above: Order Comment: Speci men Type: BLOOD SPECIMENOrdering Facility: [facility] Address: [address] [place] [address] Performed By: #### 1 9123-9, 12838-0 ####[facility]ORATORYCLIA [id number] [place] [address] [place] Chloride [Moles/Vol] 103 mmol/L Normal 97-105 [facility] Comment on above: Order Comment: Speci men Type: BLOOD SPECIMENOrdering Facility: [facility] Address: [address] [place] [address] Performed By: #### 1 9123-9, 20587-8 ####[facility]ATORYCLIA [id number] [address] [place] CO2 [Moles/Vol] 26 mmol/L Normal 22-30 [facility] Comment on above: Order Comment: Speci men Type: BLOOD SPECIMENOrdering Facility: [facility] Address: [address] [place] [address] Performed By: #### 1 9123-9, 56871-6 ####[facility]ORATORYCLIA [id number] [place] [address] [place] Creatinine [Mass/Vol] 0.60 mg/dL Low 0.73-1.22 [facility] Comment on above: Order Comment: Speci men Type: BLOOD SPECIMENOrdering Facility: [facility] Address: [address] [place] [address] Performed By: #### 1 9123-9, 55217-8 ####[facility]ORATORYCLIA [id number] [place] [address] [place] GFR/1.73 sq M.predicted MDRD (S/P/Bld) [Vol rate/Area] mL/min/{1.73_m2} Normal [facility] Comment on above: Order Comment: Shira feldman Type: BLOOD SPECIMENOrdering Facility: [facility] Address: [address] [place], [place] [id number] Result Comment: >60e GFR (Estimated GFR) Units [...] actual GFR. Performed By: #### 1 9123-9, 29402-7 ####[facility]ORATORYCLIA [id number] [place] [address] [place] Glucose [Mass/Vol] 126 mg/dL High 74-99 [facility] Comment on above: Order Comment: Johncara feldman Type: BLOOD SPECIMENOrdering Facility: [facility] Address: [address] [id number] Result Comment: The [place] [employer] Association (ADA) provides guidance for cutoff [...] Standards of Medical Care in Diabetes 2016, [place] [employer]. Diabetes Care. 2016.39(Suppl 1). Performed By: #### 1 9123-9, 00432-3 ####[facility] LABORATORYCLIA [id number] [place] [address] [place] Potassium [Moles/Vol] 3.9 mmol/L Normal 3.7-5.1 [facility] Comment on above: Order Comment: Speci men Type: BLOOD SPECIMENOrdering Facility: [facility] Address: [address] [place] [address] Performed By: #### 1 9123-9, 85458-4 ####[facility] LABORATORYCLIA [id number] [address] STATES OF [facility] Sodium [Moles/Vol] 138 mmol/L Normal 136-144 [facility] Comment on above: Order Comment: Speci men Type: BLOOD SPECIMENOrdering Facility: [facility] Address: [address] [place] [address] Performed By: #### 1 9123-9, 25128-3 ####[facility] LABORATORYCLIA [id number] [address] [place] Urea nitrogen [Mass/Vol] 24 mg/dL Normal 9-24 [facility] Comment on above: Order Comment: Speci men Type: BLOOD SPECIMENOrdering Facility: [facility] Address: [address] [place] [address] Performed By: #### 1 9123-9, 35629-7 ####[facility] LABORATORYCLIA [id number] [address] OF [facility] CASE MANAGEMon 06-24-2021 CASE MANAGEM Normal [facility] CASE MANAGEM Normal [facility] CASE MANAGEM Normal [facility] CBC panel Auto (Bld)on 06-24 Erythrocyte distribution width (RBC) [Ratio] 16.1 % High 11.5-15.0 [facility] Comment on above: Order Comment: Speci men Type: BLOOD SPECIMENOrdering Facility: [facility] Address: [address] [place] [address] Performed By: #### 5 8410-2 ####[facility] LABORATORYCLIA [id number] [address] [place] Hematocrit (Bld) [Volume fraction] 31.7 % Low 39.0-51.0 [facility] Comment on above: Order Comment: Speci men Type: BLOOD SPECIMENOrdering Facility: [facility] Address: [address] [place] [address] Performed By: #### 5 8410-2 ####[facility] LABORATORYCLIA [id number] [address] Hemoglobin (Bld) [Mass/Vol] 9.7 g/dL Low 13.0-17.0 [facility] Comment on above: Order Comment: Speci men Type: BLOOD SPECIMENOrdering Facility: [facility] Address: [address] [place] [address] Performed By: #### 5 8410-2 ####[facility] LABORATORYCLIA [id number] [address] MCH (RBC) [Entitic mass] 28.0 pg Normal 26.0-34.0 [facility] Comment on above: Order Comment: Speci men Type: BLOOD SPECIMENOrdering Facility: [facility] Address: [address] [place] [address] Performed By: #### 5 8410-2 ####[facility] LABORATORYCLIA [id number] [address] MCHC (RBC) [Mass/Vol] 30.6 g/dL Normal 30.5-36.0 [facility] Comment on above: Order Comment: Speci men Type: BLOOD SPECIMENOrdering Facility: [facility] Address: [address] [place] [address] Performed By: #### 5 8410-2 ####[facility] LABORATORYCLIA [id number] [address] MCV (RBC) [Entitic vol] 91.4 fL Normal 80.0-100.0 [facility] Comment on above: Order Comment: Speci men Type: BLOOD SPECIMENOrdering Facility: [facility] Address: [address] [place] [address] Performed By: #### 5 8410-2 ####[facility] LABORATORYCLIA [id number] [address] Nucleated RBC (Bld) [#/Vol] 10*3/uL Normal <0.01 [facility] Comment on above: Order Comment: Speci men Type: BLOOD SPECIMENOrdering Facility: [facility] Address: [address] [place] [address] Performed By: #### 5 8410-2 ####[facility] LABORATORYCLIA [id number] [address] [place] Platelet mean volume (Bld) [Entitic vol] 11.0 fL Normal 9.0-12.7 [facility] Comment on above: Order Comment: Speci men Type: BLOOD SPECIMENOrdering Facility: [facility] Address: [address] [place] [address] Performed By: #### 5 8410-2 ####[facility] LABORATORYCLIA [id number] [address] Platelets (Bld) [#/Vol] 358 10*3/uL Normal 150-400 [facility] Comment on above: Order Comment: Speci men Type: BLOOD SPECIMENOrdering Facility: [facility] Address: [address] [place] [address] Performed By: #### 5 8410-2 ####[facility] LABORATORYCLIA [id number] [address] [place] RBC (Bld) [#/Vol] 3.47 10*6/uL Low 4.20-6.00 [facility] Comment on above: Order Comment: Speci men Type: BLOOD SPECIMENOrdering Facility: [facility] Address: [address] [place] [address] Performed By: #### 5 8410-2 ####[facility] LABORATORYCLIA [id number] [address] [place] WBC (Bld) [#/Vol] 10.07 10*3/uL Normal 3.70-11.00 [facility] Comment on above: Order Comment: Speci men Type: BLOOD SPECIMENOrdering Facility: [facility] Address: [address] [place] [address] Performed By: #### 5 8410-2 ####[facility] LABORATORYCLIA [id number] [place] [address] [place] Magnesium SerPl-mCncon 06-24 Magnesium [Mass/Vol] 2.3 mg/dL Normal 1.7-2.3 [facility] Comment on above: Order Comment: Speci men Type: BLOOD SPECIMENOrdering Facility: [facility] Address: [address] [place] [address] Performed By: #### 1 9123-9, 79224-6 ####[facility] LABORATORYCLIA [id number] [place] [address] [place] ALLIED HEALTHon 06-23-2021 ALLIED HEALTH Normal [facility] Basic metabolic 2000 panelon 06-23-2021 Anion gap [Moles/Vol] 9 mmol/L Normal 9-18 [facility] Comment on above: Order Comment: Speci men Type: BLOOD SPECIMENOrdering Facility: [facility] Address: [address] [place] [address] Performed By: #### 1 9123-9, 99527-8 ####[facility] LABORATORYCLIA [id number] [place] [address] [place] Calcium [Mass/Vol] 8.4 mg/dL Low 8.5-10.2 [facility] Comment on above: Order Comment: Speci men Type: BLOOD SPECIMENOrdering Facility: [facility] Address: [address] [place], [place] [address] Performed By: #### 1 9123-9, 59475-0 ####[facility] LABORATORYCLIA [id number] [place] [address] [place] Chloride [Moles/Vol] 104 mmol/L Normal 97-105 [facility] Comment on above: Order Comment: Speci men Type: BLOOD SPECIMENOrdering Facility: [facility] Address: [address] [place] [address] Performed By: #### 1 91239, ####[facility] LABORATORYCLIA [id number] [place] [address] [place] [facility] CO2 [Moles/Vol] 26 mmol/L Normal 22-30 [facility] Comment on above: Order Comment: Speci men Type: BLOOD SPECIMENOrdering Facility: [facility] Address: [address] [place] [address] Performed By: #### 1 919, ####[facility]ITALCLIA [id number] [place] [address] [place] Creatinine [Mass/Vol] 0.62 mg/dL Low 0.73-1.22 [facility] Comment on above: Order Comment: Speci men Type: BLOOD SPECIMENOrdering Facility: [facility] Address: [address] [place] [address] Performed By: #### 1 91239, ####[facility]ITALCLIA [id number] [address] [place] GFR/1.73 sq M.predicted MDRD (S/P/Bld) [Vol rate/Area] mL/min/{1.73_m2} Normal [facility] Comment on above: Order Comment: Speci men Type: BLOOD SPECIMENOrdering Facility: [facility] Address: [address] [place] [address] Result Comment: >60e GFR (Estimated GFR) Units [...] actual GFR. Performed By: #### 1 9123-9, 73755-5 ####[facility] LABORATORYCLIA [id number] [place] [address] [place] Glucose [Mass/Vol] 111 mg/dL High 74-99 [facility] Comment on above: Order Comment: Shira men Type: BLOOD SPECIMENOrdering Facility: [facility] Address: [address] [place] [address] Result Comment: The [place] [employer] (ADA) provides guidance for cutoff [...] Standards of Medical Care in Diabetes 2016, [place] [employer]. Diabetes Care. 2016.39(Suppl 1). Performed By: #### 1 9123-9, 42520-2 ####[facility] LABORATORYCLIA [id number] [place] [address] [place] Potassium [Moles/Vol] 4.1 mmol/L Normal 3.7-5.1 [facility] Comment on above: Order Comment: Shira feldman Type: BLOOD SPECIMENOrdering Facility: [facility] Address: [address] [place] [address] Performed By: #### 1 9123-9, 51709-5 ####[facility] LABORATORYCLIA [id number] [place] [address] [place] Sodium [Moles/Vol] 139 mmol/L Normal 136-144 [facility] Comment on above: Order Comment: Shira francia Type: BLOOD SPECIMENOrdering Facility: [facility] Address: [address] [place] [address] Performed By: #### 1 9123-9, 47990-4 ####[facility] LABORATORYCLIA [id number] [place] [address] [place] Urea nitrogen [Mass/Vol] 26 mg/dL High 9-24 [facility] Comment on above: Order Comment: Speci men Type: BLOOD SPECIMENOrdering Facility: [facility] Address: [address] [place] [address] Performed By: #### 1 9123-9, 25862-0 ####[facility] LABORATORYCLIA [id number] [address] [place] CASE MANAGEMon 06-23-2021 CASE MANAGEM Normal [facility] CBC panel Auto (Bld)on 06-23 Erythrocyte distribution width (RBC) [Ratio] 16.0 % High 11.5-15.0 [facility] Comment on above: Order Comment: Speci men Type: BLOOD SPECIMENOrdering Facility: [facility] Address: [address] [place] [address] Performed By: #### 5 8410-2 ####[facility] LABORATORYCLIA [id number] [address] [place] Hematocrit (Bld) [Volume fraction] 31.1 % Low 39.0-51.0 [facility] Comment on above: Order Comment: Speci men Type: BLOOD SPECIMENOrdering Facility: [facility] Address: [address] [place] [address] Performed By: #### 5 8410-2 ####[facility] LABORATORYCLIA [id number] [place] [address] [place] Hemoglobin (Bld) [Mass/Vol] 9.5 g/dL Low 13.0-17.0 [facility] Comment on above: Order Comment: Speci men Type: BLOOD SPECIMENOrdering Facility: [facility] Address: [address] [place] [address] Performed By: #### 5 8410-2 ####[facility] LABORATORYCLIA [id number] [address] [place] MCH (RBC) [Entitic mass] 28.1 pg Normal 26.0-34.0 [facility] Comment on above: Order Comment: Speci men Type: BLOOD SPECIMENOrdering Facility: [facility] Address: [address] [place] [address] Performed By: #### 5 8410-2 ####[facility] LABORATORYCLIA [id number] [address] MCHC (RBC) [Mass/Vol] 30.5 g/dL Normal 30.5-36.0 [facility] Comment on above: Order Comment: Speci men Type: BLOOD SPECIMENOrdering Facility: [facility] Address: [address] [place] [address] Performed By: #### 5 8410-2 ####[facility] LABORATORYCLIA [id number] [address] MCV (RBC) [Entitic vol] 92.0 fL Normal 80.0-100.0 [facility] Comment on above: Order Comment: Speci men Type: BLOOD SPECIMENOrdering Facility: [facility] Address: [address] [place] [address] Performed By: #### 5 8410-2 ####[facility] LABORATORYCLIA [id number] [address] Nucleated RBC (Bld) [#/Vol] 10*3/uL Normal <0.01 [facility] Comment on above: Order Comment: Speci men Type: BLOOD SPECIMENOrdering Facility: [facility] Address: [address] [place] [address] Performed By: #### 5 8410-2 ####[facility] LABORATORYCLIA [id number] [address] Platelet mean volume (Bld) [Entitic vol] 11.0 fL Normal 9.0-12.7 [facility] Comment on above: Order Comment: Speci men Type: BLOOD SPECIMENOrdering Facility: [facility] Address: [address] [place] [address] Performed By: #### 5 8410-2 ####[facility] LABORATORYCLIA [id number] [address] [facility] Platelets (Bld) [#/Vol] 361 10*3/uL Normal 150-400 [facility] Comment on above: Order Comment: Speci men Type: BLOOD SPECIMENOrdering Facility: [facility] Address: [address] [place] [address] Performed By: #### 5 8410-2 ####[facility] LABORATORYCLIA [id number] [place] [address] [place] RBC (Bld) [#/Vol] 3.38 10*6/uL Low 4.20-6.00 [facility] Comment on above: Order Comment: Speci men Type: BLOOD SPECIMENOrdering Facility: [facility] Address: [address] [place] [address] Performed By: #### 5 8410-2 ####[facility] LABORATORYCLIA [id number] [address] WBC (Bld) [#/Vol] 9.02 10*3/uL Normal 3.70-11.00 [facility] Comment on above: Order Comment: Speci men Type: BLOOD SPECIMENOrdering Facility: [facility] Address: [address] [place] [address] Performed By: #### 5 8410-2 ####[facility] LABORATORYCLIA [id number] [address] CONSULT PROGon 06-23-2021 CONSULT PROG Normal [facility] CONSULT PROG Normal [facility] Magnesium SerPl-mCncon 06-23 Magnesium [Mass/Vol] 2.4 mg/dL High 1.7-2.3 [facility] Comment on above: Order Comment: Speci men Type: BLOOD SPECIMENOrdering Facility: [facility] Address: [address] [place] [address] Performed By: #### 1 9123-9, 10210-2 ####[facility] LABORATORYCLIA [id number] [address] THERAPY NTon 06-23-2021 THERAPY NT Normal [facility] Vancomycin random [Mass/Vol] on 06-23-2021 Vancomycin [Mass/Vol] 22.8 ug/mL High 10.0-20.0 [facility] Comment on above: Order Comment: Speci men Type: BLOOD SPECIMENOrdering Facility: [facility] Address: [address] [place] [address] Result Comment: Refe rence ranges and high/low indicator flags are provided as general guidelines only. The treating physician must determine appropriate target levels/dosing based on the specific clinical situation. Performed By: #### 4 091-5 ####[facility] LABORATORYCLIA [id number] [place] [address] [place] XR MOD BARIUM SWALLOW W SPEE Lore 06-23-2021 XR MOD BARIUM SWALLOW W SPEECH Normal [facility] Basic metabolic 2000 panelon 06-22-2021 Anion gap [Moles/Vol] 6 mmol/L Low 9-18 [facility] Comment on above: Order Comment: Speci men Type: BLOOD SPECIMENOrdering Facility: [facility] Address: [address] [place] [address] Performed By: #### 2 4321-2, ####[facility] LABORATORYCLIA [id number] [place] [address] [place] Calcium [Mass/Vol] 8.5 mg/dL Normal 8.5-10.2 [facility] Comment on above: Order Comment: Speci men Type: BLOOD SPECIMENOrdering Facility: [facility] Address: [address] [address] Performed By: #### 2 4321-2, ####[facility] LABORATORYCLIA [id number] [place] [address] [place] Chloride [Moles/Vol] 105 mmol/L Normal 97-105 [facility] Comment on above: Order Comment: Speci men Type: BLOOD SPECIMENOrdering Facility: [facility] Address: [address] [place] [address] Performed By: #### 2 43205-08, ####[facility] LABORATORYCLIA [id number] [place] [address] [place] CO2 [Moles/Vol] 26 mmol/L Normal 22-30 [facility] Comment on above: Order Comment: Speci men Type: BLOOD SPECIMENOrdering Facility: [facility] Address: [address] [place] [address] Performed By: #### 2 4320-06, ####[facility]ITALCLIA [id number] [place] [address] [place] Creatinine [Mass/Vol] 0.56 mg/dL Low 0.73-1.22 [facility] Comment on above: Order Comment: Speci men Type: BLOOD SPECIMENOrdering Facility: [facility] Address: [address] [place] [address] Performed By: #### 2 43205-08, ####[facility]ITALCLIA [id number] [address] [place] GFR/1.73 sq M.predicted MDRD (S/P/Bld) [Vol rate/Area] mL/min/{1.73_m2} Normal [facility] Comment on above: Order Comment: Speci men Type: BLOOD SPECIMENOrdering Facility: [facility] Address: [address] [place] [address] Result Comment: >60e GFR (Estimated GFR) Units [...] actual GFR. Performed By: #### 2 43205-08, ####[facility] LABORATORYCLIA [id number] [place] [address] [place] Glucose [Mass/Vol] 120 mg/dL High 74-99 [facility] Comment on above: Order Comment: Shira feldman Type: BLOOD SPECIMENOrdering Facility: [facility] Address: [address] [place] [address] Result Comment: The [place] [employer] (ADA) provides guidance for cutoff [...] Standards of Medical Care in Diabetes 2016, [place] [employer]. Diabetes Care. 2016.39(Suppl 1). Performed By: #### 2 ####[facility] LABORATORYCLIA [id number] [place] [address] [place] Potassium [Moles/Vol] 4.0 mmol/L Normal 3.7-5.1 [facility] Comment on above: Order Comment: Shira feldman Type: BLOOD SPECIMENOrdering Facility: [facility] Address: [address] [place] [address] Performed By: #### 2 ####[facility] LABORATORYCLIA [id number] [place] [address] [place] Sodium [Moles/Vol] 137 mmol/L Normal 136-144 [facility] Comment on above: Order Comment: Shira feldman Type: BLOOD SPECIMENOrdering Facility: [facility] Address: [address] [place] [address] Performed By: #### 2 ####[facility] LABORATORYCLIA [id number] [place] [address] [place] Urea nitrogen [Mass/Vol] 25 mg/dL High 9-24 [facility] Comment on above: Order Comment: Speci men Type: BLOOD SPECIMENOrdering Facility: [facility] Address: [address] [place] [address] Performed By: #### 2 4321-2, 09756-6 ####[facility] LABORATORYCLIA [id number] [address] [place] CASE MANAGEMon 06-22-2021 CASE MANAGEM Normal [facility] CBC panel Auto (Bld)on 06-22 Erythrocyte distribution width (RBC) [Ratio] 16.0 % High 11.5-15.0 [facility] Comment on above: Order Comment: Speci men Type: BLOOD SPECIMENOrdering Facility: [facility] Address: [address] [place] [address] Performed By: #### 5 8410-2 ####[facility] LABORATORYCLIA [id number] [address] [place] Hematocrit (Bld) [Volume fraction] 30.5 % Low 39.0-51.0 [facility] Comment on above: Order Comment: Speci men Type: BLOOD SPECIMENOrdering Facility: [facility] Address: [address] [place] [address] Performed By: #### 5 8410-2 ####[facility] LABORATORYCLIA [id number] [place] [address] [place] Hemoglobin (Bld) [Mass/Vol] 9.3 g/dL Low 13.0-17.0 [facility] Comment on above: Order Comment: Speci men Type: BLOOD SPECIMENOrdering Facility: [facility] Address: [address] [place] [address] Performed By: #### 5 8410-2 ####[facility] LABORATORYCLIA [id number] [address] [place] MCH (RBC) [Entitic mass] 28.4 pg Normal 26.0-34.0 [facility] Comment on above: Order Comment: Speci men Type: BLOOD SPECIMENOrdering Facility: [facility] Address: [address] [place] [address] Performed By: #### 5 8410-2 ####[facility] LABORATORYCLIA [id number] [address] MCHC (RBC) [Mass/Vol] 30.5 g/dL Normal 30.5-36.0 [facility] Comment on above: Order Comment: Speci men Type: BLOOD SPECIMENOrdering Facility: [facility] Address: [address] [place] [address] Performed By: #### 5 8410-2 ####[facility] LABORATORYCLIA [id number] [address] MCV (RBC) [Entitic vol] 93.3 fL Normal 80.0-100.0 [facility] Comment on above: Order Comment: Speci men Type: BLOOD SPECIMENOrdering Facility: [facility] Address: [address] [place] [address] Performed By: #### 5 8410-2 ####[facility]ORATORYCLIA [id number] [address] Nucleated RBC (Bld) [#/Vol] 10*3/uL Normal <0.01 [facility] Comment on above: Order Comment: Speci men Type: BLOOD SPECIMENOrdering Facility: [facility] Address: [address] [place] [address] Performed By: #### 5 8410-2 ####[facility]ORATORYCLIA [id number] [address] Platelet mean volume (Bld) [Entitic vol] 11.5 fL Normal 9.0-12.7 [facility] Comment on above: Order Comment: Speci men Type: BLOOD SPECIMENOrdering Facility: [facility] Address: [address] [place] [address] Performed By: #### 5 8410-2 ####[facility]ORATORYCLIA [id number] [address] Platelets (Bld) [#/Vol] 346 10*3/uL Normal 150-400 [facility] Comment on above: Order Comment: Speci men Type: BLOOD SPECIMENOrdering Facility: [facility] Address: [address] [place] [address] Performed By: #### 5 8410-2 ####[facility]ORATORYCLIA [id number] [place] [address] [place] RBC (Bld) [#/Vol] 3.27 10*6/uL Low 4.20-6.00 [facility] Comment on above: Order Comment: Speci men Type: BLOOD SPECIMENOrdering Facility: [facility] Address: [address] [place] [address] Performed By: #### 5 8410-2 ####[facility] LABORATORYCLIA [id number] [address] OF [facility] WBC (Bld) [#/Vol] 9.44 10*3/uL Normal 3.70-11.00 [facility] Comment on above: Order Comment: Speci men Type: BLOOD SPECIMENOrdering Facility: [facility] Address: [address] [place] [address] Performed By: #### 5 8410-2 ####[facility]ORATORYCLIA [id number] [address] [place] HEMOGLOBIN (HGB)on 2 Hemoglobin (Bld) [Mass/Vol] 9.7 g/dL Low 13.0-17.0 [facility] Comment on above: Order Comment: Speci men Type: BLOOD SPECIMENOrdering Facility: [facility] Address: [address] [place] [address] Performed By: #### H GB ####[facility] LABORATORYCLIA [id number] [address] OF [facility] Magnesium SerPl-mCncon 06-22 Magnesium [Mass/Vol] 2.4 mg/dL High 1.7-2.3 [facility] Comment on above: Order Comment: Speci men Type: BLOOD SPECIMENOrdering Facility: [facility] Address: [address] [place] [address] Performed By: #### 2 4321-2, ####[facility] LABORATORYCLIA [id number] [address] OF [facility] THERAPY NTon 06-22-2021 THERAPY NT Normal [facility] THERAPY NT Normal [facility] aPTT PPPon 06-22-2021 aPTT Coag (PPP) [Time] 62.3 s High 23.0-32.4 [facility] Comment on above: Order Comment: Speci men Type: BLOOD SPECIMENOrdering Facility: [facility] Address: [address] [place] [address] Performed By: #### 1 4979-9 ####[facility] LABORATORYCLIA [id number] [address] [place] ALLIED HEALTHon 06-21-2021 ALLIED HEALTH Normal [facility] Basic metabolic 2000 panelon 06-21-2021 Anion gap [Moles/Vol] 8 mmol/L Low 9-18 [facility] Comment on above: Order Comment: Speci men Type: BLOOD SPECIMENOrdering Facility: [facility] Address: [address] [place] [address] Performed By: #### 2 4321-2, ####[facility] LABORATORYCLIA [id number] [place] [address] [place] Calcium [Mass/Vol] 8.2 mg/dL Low 8.5-10.2 [facility] Comment on above: Order Comment: Speci men Type: BLOOD SPECIMENOrdering Facility: [facility] Address: [address] [place] [address] Performed By: #### 2 4321-2, ####[facility] LABORATORYCLIA [id number] [address] [place] Chloride [Moles/Vol] 108 mmol/L High 97-105 [facility] Comment on above: Order Comment: Speci men Type: BLOOD SPECIMENOrdering Facility: [facility] Address: [address] [place] [address] Performed By: #### 2 432-2, ####[facility] LABORATORYCLIA [id number] [address] STATES OF [facility] CO2 [Moles/Vol] 24 mmol/L Normal 22-30 [facility] Comment on above: Order Comment: Speci men Type: BLOOD SPECIMENOrdering Facility: [facility] Address: [address] [place] [address] Performed By: #### 2 4321-2, ####[facility] LABORATORYCLIA [id number] [address] OF [facility] Creatinine [Mass/Vol] 0.61 mg/dL Low 0.73-1.22 [facility] Comment on above: Order Comment: Speci men Type: BLOOD SPECIMENOrdering Facility: [facility] Address: [address] [place] [address] Performed By: #### 2 43205-08, ####[facility] LABORATORYCLIA [id number] [address] [place] GFR/1.73 sq M.predicted MDRD (S/P/Bld) [Vol rate/Area] mL/min/{1.73_m2} Normal [facility] Comment on above: Order Comment: Speci men Type: BLOOD SPECIMENOrdering Facility: [facility] Address: [address] [place] [address] Result Comment: >60e GFR (Estimated GFR) Units [...] By: #### 2 432-, ####[facility] LABORATORYCLIA [id number] [place] [address] [place] Glucose [Mass/Vol] 211 mg/dL High 74-99 [facility] Comment on above: Order Comment: Sh[facility] Type: BLOOD SPECIMENOrdering Facility: [facility] Address: [address] [place] [address] Result Comment: The [place] [employer] (ADA) provides guidance for cutoff [...] Standards of Medical Care in Diabetes 2016, [place] [employer]. Diabetes Care. 2016.39(Suppl 1). Performed By: #### 2 43205-08, ####[facility] LABORATORYCLIA [id number] [place] [address] [place] Potassium [Moles/Vol] 4.3 mmol/L Normal 3.7-5.1 [facility] Comment on above: Order Comment: Shira [facility] Type: BLOOD SPECIMENOrdering Facility: [facility] Address: [address] Performed By: #### 2 43205-08, ####[facility] LABORATORYCLIA [id number] [place] [address] [place] Sodium [Moles/Vol] 140 mmol/L Normal 136-144 [facility] Comment on above: Order Comment: Shira feldman Type: BLOOD SPECIMENOrdering Facility: [facility] Address: [address] [place] [address] Performed By: #### 2 1-2, ####[facility] LABORATORYCLIA [id number] [place] [address] [place] [facility] Urea nitrogen [Mass/Vol] 26 mg/dL High 9-24 [facility] Comment on above: Order Comment: Speci men Type: BLOOD SPECIMENOrdering Facility: [facility] Address: [address] [place] [address] Performed By: #### 2 4320-2, ####[facility] LABORATORYCLIA [id number] [address] CBC panel Auto (Bld)on 06-21 Erythrocyte distribution width (RBC) [Ratio] 16.1 % High 11.5-15.0 [facility] Comment on above: Order Comment: Speci men Type: BLOOD SPECIMENOrdering Facility: [facility] Address: [address] [place] [address] Performed By: #### 5 8410-2 ####[facility] LABORATORYCLIA [id number] [address] STATES [facility] Hematocrit (Bld) [Volume fraction] 29.7 % Low 39.0-51.0 [facility] Comment on above: Order Comment: Speci men Type: BLOOD SPECIMENOrdering Facility: [facility] Address: [address] [place] [address] Performed By: #### 5 8410-2 ####[facility] LABORATORYCLIA [id number] [address] STATES OF [facility] Hemoglobin (Bld) [Mass/Vol] 9.2 g/dL Low 13.0-17.0 [facility] Comment on above: Order Comment: Speci men Type: BLOOD SPECIMENOrdering Facility: [facility] Address: [address] [place] [address] Performed By: #### 5 8410-2 ####[facility] LABORATORYCLIA [id number] [address] [place] MCH (RBC) [Entitic mass] 28.8 pg Normal 26.0-34.0 [facility] Comment on above: Order Comment: Speci men Type: BLOOD SPECIMENOrdering Facility: [facility] Address: [address] [place] [address] Performed By: #### 5 8410-2 ####[facility] LABORATORYCLIA [id number] [address] MCHC (RBC) [Mass/Vol] 31.0 g/dL Normal 30.5-36.0 [facility] Comment on above: Order Comment: Speci men Type: BLOOD SPECIMENOrdering Facility: [facility] Address: [address] [place] [address] Performed By: #### 5 8410-2 ####[facility] LABORATORYCLIA [id number] [address] MCV (RBC) [Entitic vol] 93.1 fL Normal 80.0-100.0 [facility] Comment on above: Order Comment: Speci men Type: BLOOD SPECIMENOrdering Facility: [facility] Address: [address] [place] [address] Performed By: #### 5 8410-2 ####[facility] LABORATORYCLIA [id number] [address] Nucleated RBC (Bld) [#/Vol] 10*3/uL Normal <0.01 [facility] Comment on above: Order Comment: Speci men Type: BLOOD SPECIMENOrdering Facility: [facility] Address: [address] [place] [address] Performed By: #### 5 8410-2 ####[facility] LABORATORYCLIA [id number] [address] Platelet mean volume (Bld) [Entitic vol] 11.6 fL Normal 9.0-12.7 [facility] Comment on above: Order Comment: Speci men Type: BLOOD SPECIMENOrdering Facility: [facility] Address: [address] [place] [address] Performed By: #### 5 8410-2 ####[facility] LABORATORYCLIA [id number] [place] [address] [place] Platelets (Bld) [#/Vol] 347 10*3/uL Normal 150-400 [facility] Comment on above: Order Comment: Speci men Type: BLOOD SPECIMENOrdering Facility: [facility] Address: [address] [place] [address] Performed By: #### 5 8410-2 ####[facility] LABORATORYCLIA [id number] [place] [address] [place] RBC (Bld) [#/Vol] 3.19 10*6/uL Low 4.20-6.00 [facility] Comment on above: Order Comment: Speci men Type: BLOOD SPECIMENOrdering Facility: [facility] Address: [address] [place] [address] Performed By: #### 5 8410-2 ####[facility] LABORATORYCLIA [id number] [address] OF [facility] WBC (Bld) [#/Vol] 10.29 10*3/uL Normal 3.70-11.00 [facility] Comment on above: Order Comment: Speci men Type: BLOOD SPECIMENOrdering Facility: [facility] Address: [address] [place] [address] Performed By: #### 5 8410-2 ####[facility] LABORATORYCLIA [id number] [address] [place] CONSULT PROGon 06-21-2021 CONSULT PROG Normal [facility] CONSULT PROG Normal [facility] Magnesium SerPl-mCncon 06-21 Magnesium [Mass/Vol] 2.5 mg/dL High 1.7-2.3 [facility] Comment on above: Order Comment: Speci men Type: BLOOD SPECIMENOrdering Facility: [facility] Address: [address] [place] [address] Performed By: #### 2 4321-2, 96385-7 ####[facility] LABORATORYCLIA [id number] [place] [address] [place] NUTRITIONon 06-21-2021 NUTRITION Normal [facility] XR CHEST 1V FRONTALon 2021 XR CHEST 1V FRONTAL Normal [facility] aPTT PPPon 06-21-2021 aPTT Coag (PPP) [Time] 68.5 s High 23.0-32.4 [facility] Comment on above: Order Comment: Speci men Type: BLOOD SPECIMENOrdering Facility: [facility] Address: [address] [place] [address] Performed By: #### 1 4979-9 ####[facility] LABORATORYCLIA [id number] [address] [place] aPTT Coag (PPP) [Time] 57.8 s High 23.0-32.4 [facility] Comment on above: Order Comment: Speci men Type: BLOOD SPECIMENOrdering Facility: [facility] Address: [address] [place] [address] Performed By: #### 1 4979-9 ####[facility] LABORATORYCLIA [id number] [place] [address] [place] Basic metabolic 2000 panelon 06-20-2021 Anion gap [Moles/Vol] 9 mmol/L Normal 9-18 [facility] Comment on above: Order Comment: Speci men Type: BLOOD SPECIMENOrdering Facility: [facility] Address: [address] [place] [address] Performed By: #### 2 4321-2, ####[facility] LABORATORYCLIA [id number] [place] [address] [place] Calcium [Mass/Vol] 8.3 mg/dL Low 8.5-10.2 [facility] Comment on above: Order Comment: Speci men Type: BLOOD SPECIMENOrdering Facility: [facility] Address: [address] [place] [address] Performed By: #### 2 4321-2, ####[facility] LABORATORYCLIA [id number] [address] [place] Chloride [Moles/Vol] 111 mmol/L High 97-105 [facility] Comment on above: Order Comment: Speci men Type: BLOOD SPECIMENOrdering Facility: [facility] Address: [address] [place] [address] Performed By: #### 2 4321-2, ####[facility] LABORATORYCLIA [id number] [place] [address] [place] CO2 [Moles/Vol] 24 mmol/L Normal 22-30 [facility] Comment on above: Order Comment: Speci men Type: BLOOD SPECIMENOrdering Facility: [facility] Address: [address] [place] [address] Performed By: #### 2 4321-2, ####[facility] LABORATORYCLIA [id number] [address] [place] Creatinine [Mass/Vol] 0.64 mg/dL Low 0.73-1.22 [facility] Comment on above: Order Comment: Speci men Type: BLOOD SPECIMENOrdering Facility: [facility] Address: [address] [place] [address] Performed By: #### 2 4321-2, ####[facility] LABORATORYCLIA [id number] [place] [address] [place] GFR/1.73 sq M.predicted MDRD (S/P/Bld) [Vol rate/Area] mL/min/{1.73_m2} Normal [facility] Comment on above: Order Comment: Speci men Type: BLOOD SPECIMENOrdering Facility: [facility] Address: [address] [place] [address] Result Comment: >60e GFR (Estimated GFR) Units [...] By: #### 2 4320-06, ####[facility] LABORATORYCLIA [id number] [place] [address] [place] Glucose [Mass/Vol] 114 mg/dL High 74-99 [facility] Comment on above: Order Comment: Speci men Type: BLOOD SPECIMENOrdering Facility: [facility] Address: [address] [place], [place] [id number] Result Comment: The [place] [employer] (ADA) provides guidance for cutoff [...] Standards of Medical Care in Diabetes 2016, [place] [employer]. Diabetes Care. 2016.39(Suppl 1). Performed By: #### 2 4320-06, ####[facility] LABORATORYCLIA [id number] [place] [address] [place] Potassium [Moles/Vol] 4.1 mmol/L Normal 3.7-5.1 [facility] Comment on above: Order Comment: Speci men Type: BLOOD SPECIMENOrdering Facility: [facility] Address: [address] [place] [address] Performed By: #### 2 4320-06, ####[facility] LABORATORYCLIA [id number] [place] [address] [place] Sodium [Moles/Vol] 144 mmol/L Normal 136-144 [facility] Comment on above: Order Comment: Speci men Type: BLOOD SPECIMENOrdering Facility: [facility] Address: [address] [place] [address] Performed By: #### 2 4321-2, 00113-7 ####[facility] LABORATORYCLIA [id number] [address] [place] Urea nitrogen [Mass/Vol] 27 mg/dL High 9-24 [facility] Comment on above: Order Comment: Speci men Type: BLOOD SPECIMENOrdering Facility: [facility] Address: [address] [place] [address] Performed By: #### 2 4321-2, 73081-3 ####[facility] LABORATORYCLIA [id number] [address] [place] CASE MANAGEMon 06-20-2021 CASE MANAGEM Normal [facility] CBC panel Auto (Bld)on 06-20 Erythrocyte distribution width (RBC) [Ratio] 15.9 % High 11.5-15.0 [facility] Comment on above: Order Comment: Speci men Type: BLOOD SPECIMENOrdering Facility: [facility] Address: [address] [place] [address] Performed By: #### 5 8410-2 ####[facility] LABORATORYCLIA [id number] [address] [place] Hematocrit (Bld) [Volume fraction] 31.0 % Low 39.0-51.0 [facility] Comment on above: Order Comment: Speci men Type: BLOOD SPECIMENOrdering Facility: [facility] Address: [address] [place] [address] Performed By: #### 5 8410-2 ####[facility] LABORATORYCLIA [id number] [place] [address] [place] Hemoglobin (Bld) [Mass/Vol] 9.2 g/dL Low 13.0-17.0 [facility] Comment on above: Order Comment: Speci men Type: BLOOD SPECIMENOrdering Facility: [facility] Address: [address] [place] [address] Performed By: #### 5 8410-2 ####[facility] LABORATORYCLIA [id number] [address] MCH (RBC) [Entitic mass] 27.4 pg Normal 26.0-34.0 [facility] Comment on above: Order Comment: Speci men Type: BLOOD SPECIMENOrdering Facility: [facility] Address: [address] [place] [address] Performed By: #### 5 8410-2 ####[facility] LABORATORYCLIA [id number] [address] MCHC (RBC) [Mass/Vol] 29.7 g/dL Low 30.5-36.0 [facility] Comment on above: Order Comment: Speci men Type: BLOOD SPECIMENOrdering Facility: [facility] Address: [address] [place] [address] Performed By: #### 5 8410-2 ####[facility] LABORATORYCLIA [id number] [address] MCV (RBC) [Entitic vol] 92.3 fL Normal 80.0-100.0 [facility] Comment on above: Order Comment: Speci men Type: BLOOD SPECIMENOrdering Facility: [facility] Address: [address] [place] [address] Performed By: #### 5 8410-2 ####[facility] LABORATORYCLIA [id number] [address] Nucleated RBC (Bld) [#/Vol] 10*3/uL Normal <0.01 [facility] Comment on above: Order Comment: Speci men Type: BLOOD SPECIMENOrdering Facility: [facility] Address: [address] [place] [address] Performed By: #### 5 8410-2 ####[facility] LABORATORYCLIA [id number] [address] Platelet mean volume (Bld) [Entitic vol] 11.5 fL Normal 9.0-12.7 [facility] Comment on above: Order Comment: Speci men Type: BLOOD SPECIMENOrdering Facility: [facility] Address: [address] [place] [address] Performed By: #### 5 8410-2 ####[facility] LABORATORYCLIA [id number] [address] OF [facility] Platelets (Bld) [#/Vol] 343 10*3/uL Normal 150-400 [facility] Comment on above: Order Comment: Speci men Type: BLOOD SPECIMENOrdering Facility: [facility] Address: [address] [place] [address] Performed By: #### 5 8410-2 ####[facility] LABORATORYCLIA [id number] [address] RBC (Bld) [#/Vol] 3.36 10*6/uL Low 4.20-6.00 [facility] Comment on above: Order Comment: Speci men Type: BLOOD SPECIMENOrdering Facility: [facility] Address: [address] [place] [address] Performed By: #### 5 8410-2 ####[facility] LABORATORYCLIA [id number] [address] WBC (Bld) [#/Vol] 10.71 10*3/uL Normal 3.70-11.00 [facility] Comment on above: Order Comment: Speci men Type: BLOOD SPECIMENOrdering Facility: [facility] Address: [address] [place] [address] Performed By: #### 5 8410-2 ####[facility] LABORATORYCLIA [id number] [address] CONSULT PROGon 06-20-2021 CONSULT PROG Normal [facility] HEMOGLOBIN (HGB)on 2 Hemoglobin (Bld) [Mass/Vol] 9.7 g/dL Low 13.0-17.0 [facility] Comment on above: Order Comment: Speci men Type: BLOOD SPECIMENOrdering Facility: [facility] Address: [address] [place] [address] Performed By: #### H GB ####[facility] LABORATORYCLIA [id number] [address] [place] Magnesium SerPl-mCncon 06-20 Magnesium [Mass/Vol] 2.5 mg/dL High 1.7-2.3 [facility] Comment on above: Order Comment: Speci men Type: BLOOD SPECIMENOrdering Facility: [facility] Address: [address] [place] [address] Performed By: #### 2 4321-2, 52435-8 ####[facility] LABORATORYCLIA [id number] [address] OF [facility] NURSING PROGon 06-20-2021 NURSING PROG Normal [facility] THERAPY NTon 06-20-2021 THERAPY NT Normal [facility] aPTT PPPon 06-20-2021 aPTT Coag (PPP) [Time] 93.5 s High 23.0-32.4 [facility] Comment on above: Order Comment: Speci men Type: BLOOD SPECIMENOrdering Facility: [facility] Address: [address] [place] [address] Performed By: #### 1 4979-9 ####[facility] LABORATORYCLIA [id number] [address] aPTT Coag (PPP) [Time] 47.1 s High 23.0-32.4 [facility] Comment on above: Order Comment: Speci men Type: BLOOD SPECIMENOrdering Facility: [facility] Address: [address] [place] [address] Performed By: #### 1 4979-9 ####[facility] LABORATORYCLIA [id number] [address] [place] Basic metabolic 2000 panelon 06-19-2021 Anion gap [Moles/Vol] 7 mmol/L Low 9-18 [facility] Comment on above: Order Comment: Speci men Type: BLOOD SPECIMENOrdering Facility: [facility] Address: [address] [place] [address] Performed By: #### 2 4321-2 ####[facility]ORATORYCLIA [id number] [place] [address] [place] Calcium [Mass/Vol] 8.1 mg/dL Low 8.5-10.2 [facility] Comment on above: Order Comment: Speci men Type: BLOOD SPECIMENOrdering Facility: [facility] Address: [address] [place] [address] Performed By: #### 2 4321-2 ####[facility] LABORATORYCLIA [id number] [place] [address] [place] Chloride [Moles/Vol] 111 mmol/L High 97-105 [facility] Comment on above: Order Comment: Speci men Type: BLOOD SPECIMENOrdering Facility: [facility] Address: [address] [place] [address] Performed By: #### 2 4321-2 ####[facility] LABORATORYCLIA [id number] [place] [address] [place] CO2 [Moles/Vol] 24 mmol/L Normal 22-30 [facility] Comment on above: Order Comment: Speci men Type: BLOOD SPECIMENOrdering Facility: [facility] Address: [address] [place] [address] Performed By: #### 2 4321-2 ####[facility] LABORATORYCLIA [id number] [place] [address] [place] Creatinine [Mass/Vol] 0.71 mg/dL Low 0.73-1.22 [facility] Comment on above: Order Comment: Speci men Type: BLOOD SPECIMENOrdering Facility: [facility] Address: [address] [place] [address] Performed By: #### 2 4321-2 ####[facility] LABORATORYCLIA [id number] [place] [address] [place] GFR/1.73 sq M.predicted MDRD (S/P/Bld) [Vol rate/Area] mL/min/{1.73_m2} Normal [facility] Comment on above: Order Comment: Shira feldman Type: BLOOD SPECIMENOrdering Facility: [facility] Address: [address] [place] [address] Result Comment: >60e GFR (Estimated GFR) Units [...] Performed By: #### 2 4321-2 ####[facility] [id number] [place] [address] [place] Glucose [Mass/Vol] 110 mg/dL High 74-99 [facility] Comment on above: Order Comment: Johncara feldman Type: BLOOD SPECIMENOrdering Facility: [facility] Address: [address] [place], [place] [id number] Result Comment: The [place] [employer] (ADA) provides guidance for cutoff [...] Standards of Medical Care in Diabetes 2016, [place] [employer]. Diabetes Care. 2016.39(Suppl 1). Performed By: #### 2 4321-2 ####[facility] LABORATORYCLIA [id number] [place] [id number] [place] Potassium [Moles/Vol] 3.7 mmol/L Normal 3.7-5.1 [facility] Comment on above: Order Comment: Speci men Type: BLOOD SPECIMENOrdering Facility: [facility] Address: [address] [place] [address] Performed By: #### 2 4321-2 ####[facility] LABORATORYCLIA [id number] [address] STATES OF [facility] Sodium [Moles/Vol] 142 mmol/L Normal 136-144 [facility] Comment on above: Order Comment: Speci men Type: BLOOD SPECIMENOrdering Facility: [facility] Address: [address] [place] [address] Performed By: #### 2 4321-2 ####[facility] LABORATORYCLIA [id number] [address] [place] [facility] Urea nitrogen [Mass/Vol] 26 mg/dL High 9-24 [facility] Comment on above: Order Comment: Speci men Type: BLOOD SPECIMENOrdering Facility: [facility] Address: [address] [place] [address] Performed By: #### 2 4321-2 ####[facility] LABORATORYCLIA [id number] [address] CBC panel Auto (Bld)on 06-19 Erythrocyte distribution width (RBC) [Ratio] 15.7 % High 11.5-15.0 [facility] Comment on above: Order Comment: Speci men Type: BLOOD SPECIMENOrdering Facility: [facility] Address: [address] [place] [address] Performed By: #### 5 8410-2 ####[facility] LABORATORYCLIA [id number] [address] Hematocrit (Bld) [Volume fraction] 30.9 % Low 39.0-51.0 [facility] Comment on above: Order Comment: Speci men Type: BLOOD SPECIMENOrdering Facility: [facility] Address: [address] [place] [address] Performed By: #### 5 8410-2 ####[facility] LABORATORYCLIA [id number] [address] OF [facility] Hemoglobin (Bld) [Mass/Vol] 9.5 g/dL Low 13.0-17.0 [facility] Comment on above: Order Comment: Speci men Type: BLOOD SPECIMENOrdering Facility: [facility] Address: [address] [place] [address] Performed By: #### 5 8410-2 ####[facility] LABORATORYCLIA [id number] [address] MCH (RBC) [Entitic mass] 28.4 pg Normal 26.0-34.0 [facility] Comment on above: Order Comment: Speci men Type: BLOOD SPECIMENOrdering Facility: [facility] Address: [address] [place] [address] Performed By: #### 5 8410-2 ####[facility] LABORATORYCLIA [id number] [address] MCHC (RBC) [Mass/Vol] 30.7 g/dL Normal 30.5-36.0 [facility] Comment on above: Order Comment: Speci men Type: BLOOD SPECIMENOrdering Facility: [facility] Address: [address] [place] [address] Performed By: #### 5 8410-2 ####[facility] LABORATORYCLIA [id number] [address] MCV (RBC) [Entitic vol] 92.2 fL Normal 80.0-100.0 [facility] Comment on above: Order Comment: Speci men Type: BLOOD SPECIMENOrdering Facility: [facility] Address: [address] [place] [address] Performed By: #### 5 8410-2 ####[facility] LABORATORYCLIA [id number] [address] OF [facility] Nucleated RBC (Bld) [#/Vol] 10*3/uL Normal <0.01 [facility] Comment on above: Order Comment: Speci men Type: BLOOD SPECIMENOrdering Facility: [facility] Address: [address] [place] [address] Performed By: #### 5 8410-2 ####[facility] LABORATORYCLIA [id number] [address] [place] Platelet mean volume (Bld) [Entitic vol] 11.7 fL Normal 9.0-12.7 [facility] Comment on above: Order Comment: Speci men Type: BLOOD SPECIMENOrdering Facility: [facility] Address: [address] [place] [address] Performed By: #### 5 8410-2 ####[facility] LABORATORYCLIA [id number] [address] [place] Platelets (Bld) [#/Vol] 323 10*3/uL Normal 150-400 [facility] Comment on above: Order Comment: Speci men Type: BLOOD SPECIMENOrdering Facility: [facility] Address: [address] [place] [address] Performed By: #### 5 8410-2 ####[facility] LABORATORYCLIA [id number] [place] [address] [place] RBC (Bld) [#/Vol] 3.35 10*6/uL Low 4.20-6.00 [facility] Comment on above: Order Comment: Speci men Type: BLOOD SPECIMENOrdering Facility: [facility] Address: [address] [place], [place] [address] Performed By: #### 5 8410-2 ####[facility] LABORATORYCLIA [id number] [address] [place] WBC (Bld) [#/Vol] 9.53 10*3/uL Normal 3.70-11.00 [facility] Comment on above: Order Comment: Speci men Type: BLOOD SPECIMENOrdering Facility: [facility] Address: [address] [place] [address] Performed By: #### 5 8410-2 ####[facility] LABORATORYCLIA [id number] [address] [place] HEMOGLOBIN (HGB)on Hemoglobin (Bld) [Mass/Vol] 9.7 g/dL Low 13.0-17.0 [facility] Comment on above: Order Comment: Speci men Type: BLOOD SPECIMENOrdering Facility: [facility] Address: [address] [place] [address] Performed By: #### H GB ####[facility] LABORATORYCLIA [id number] [address] [place] Magnesium SerPl-mCncon 06-19 Magnesium [Mass/Vol] 2.5 mg/dL High 1.7-2.3 [facility] Comment on above: Order Comment: Speci men Type: BLOOD SPECIMENOrdering Facility: [facility] Address: [address] [place] [address] Performed By: #### 1 9123-9, 2777-1 ####[facility]ITAL[facility] [id number] [address] [place] NURSING PROGon 06-19-2021 NURSING PROG Normal [facility] Phosphate SerPl-mCncon 06-19 Phosphate [Mass/Vol] 2.6 mg/dL Low 2.7-4.8 [facility] Comment on above: Order Comment: Speci men Type: BLOOD SPECIMENOrdering Facility: [facility] Address: [address] [place] [address] Performed By: #### 1 9123-9, 2777-1 ####[facility]ITALCLIA [id number] [address] [place] aPTT PPPon 06-19-2021 aPTT Coag (PPP) [Time] 61.9 s High 23.0-32.4 [facility] Comment on above: Order Comment: Speci men Type: BLOOD SPECIMENOrdering Facility: [facility] Address: [address] [place] [address] Performed By: #### 1 4979-9 ####[facility] LABORATORYCLIA [id number] [address] [place] aPTT Coag (PPP) [Time] 68.6 s High 23.0-32.4 [facility] Comment on above: Order Comment: Speci men Type: BLOOD SPECIMENOrdering Facility: [facility] Address: [address] [place] [address] Performed By: #### 1 4979-9 ####[facility] LABORATORYCLIA [id number] [address] [place] aPTT Coag (PPP) [Time] 83.2 s High 23.0-32.4 [facility] Comment on above: Order Comment: Speci men Type: BLOOD SPECIMENOrdering Facility: [facility] Address: [address] [place] [address] Performed By: #### 1 4979-9 ####[facility] LABORATORYCLIA [id number] [place] [address] [place] Basic metabolic 2000 panelon 06-18-2021 Anion gap [Moles/Vol] 7 mmol/L Low 9-18 [facility] Comment on above: Order Comment: Speci men Type: BLOOD SPECIMENOrdering Facility: [facility] Address: [address] [place] [address] Performed By: #### 2 4321-2, , 2776-05 ####[facility] LABORATORYCLIA [id number] [place] [address] [place] Calcium [Mass/Vol] 8.2 mg/dL Low 8.5-10.2 [facility] Comment on above: Order Comment: Speci men Type: BLOOD SPECIMENOrdering Facility: [facility] Address: [address] [place] [address] Performed By: #### 2 4321-2, , 2776-05 ####[facility] LABORATORYCLIA [id number] [address] [place] Chloride [Moles/Vol] 115 mmol/L High 97-105 [facility] Comment on above: Order Comment: Speci men Type: BLOOD SPECIMENOrdering Facility: [facility] Address: [address] [place], [place] [id number] Performed By: #### 2 4321-2, , 2776-05 ####[facility] LABORATORYCLIA [id number] [place] [address] [place] [facility] CO2 [Moles/Vol] 23 mmol/L Normal 22-30 [facility] Comment on above: Order Comment: Speci men Type: BLOOD SPECIMENOrdering Facility: [facility] Address: [address] [place], [place] [address] Performed By: #### 2 4321-2, , 2776-05 ####[facility]ITALCLIA [id number] [address] [place] Creatinine [Mass/Vol] 0.70 mg/dL Low 0.73-1.22 [facility] Comment on above: Order Comment: Speci men Type: BLOOD SPECIMENOrdering Facility: [facility] Address: [address] [place], [place] [address] Performed By: #### 2 4321-2, , 2776-05 ####[facility] LABORATORYCLIA [id number] [address] [place] GFR/1.73 sq M.predicted MDRD (S/P/Bld) [Vol rate/Area] mL/min/{1.73_m2} Normal [facility] Comment on above: Order Comment: Speci men Type: BLOOD SPECIMENOrdering Facility: [facility] Address: [address] [place], [place] [id number] Result Comment: >60e GFR (Estimated GFR) Units [...] 2 4321-2, , 2776-05 ####[facility] LABORATORYCLIA [id number] [place] [address] [place] Glucose [Mass/Vol] 105 mg/dL High 74-99 [facility] Comment on above: Order Comment: Shira feldman Type: BLOOD SPECIMENOrdering Facility: [facility] Address: [address] [place] [id number] Result Comment: The [place] [employer] (ADA) provides guidance for cutoff [...] Standards of Medical Care in Diabetes 2016, [place] [employer]. Diabetes Care. 2016.39(Suppl 1). Performed By: #### 2 4321-2, , 2776-05 ####[facility] LABORATORYCLIA [id number] [place] [address] [place] Potassium [Moles/Vol] 4.1 mmol/L Normal 3.7-5.1 [facility] Comment on above: Order Comment: Shira feldman Type: BLOOD SPECIMENOrdering Facility: [facility] Address: [address] [place] [address] Performed By: #### 2 4321-2, , 2776-05 ####[facility] LABORATORYCLIA [id number] [place] [address] [place] Sodium [Moles/Vol] 145 mmol/L High 136-144 [facility] Comment on above: Order Comment: Speci men Type: BLOOD SPECIMENOrdering Facility: [facility] Address: [address] [place] [address] Performed By: #### 2 4321-2, , 2776-05 ####[facility] LABORATORYCLIA [id number] [address] [place] [facility] Urea nitrogen [Mass/Vol] 27 mg/dL High 9-24 [facility] Comment on above: Order Comment: Speci men Type: BLOOD SPECIMENOrdering Facility: [facility] Address: [address] [place] [address] Performed By: #### 2 4321-2, , 2776-05 ####[facility] LABORATORYCLIA [id number] [address] [place] [facility] CALCIUM IONIZED Bon 06-18-19 Calcium.ionized (BldV) [Mass/Vol] 1.22 mmol/L Normal 1.08-1.30 [facility] Comment on above: Order Comment: Speci men Type: BLOOD SPECIMENOrdering Facility: [facility] Address: [address] [place] [address] Performed By: #### I CA ####[facility] LABORATORYCLIA [id number] [address] Calcium.ionized adjusted to pH 7.4 (Bld) [Moles/Vol] 1.23 mmol/L Normal 1.08-1.30 [facility] Comment on above: Order Comment: Speci men Type: BLOOD SPECIMENOrdering Facility: [facility] Address: [address] [place] [address] Performed By: #### I CA ####[facility] LABORATORYCLIA [id number] [address] [place] CBC panel Auto (Bld)on 06-18 Erythrocyte distribution width (RBC) [Ratio] 15.8 % High 11.5-15.0 [facility] Comment on above: Order Comment: Speci men Type: BLOOD SPECIMENOrdering Facility: [facility] Address: [address] [place] [address] Performed By: #### 5 8410-2 ####[facility] LABORATORYCLIA [id number] [address] Hematocrit (Bld) [Volume fraction] 29.5 % Low 39.0-51.0 [facility] Comment on above: Order Comment: Speci men Type: BLOOD SPECIMENOrdering Facility: [facility] Address: [address] [place] [address] Performed By: #### 5 8410-2 ####[facility] LABORATORYCLIA [id number] [address] OF [facility] Hemoglobin (Bld) [Mass/Vol] 8.8 g/dL Low 13.0-17.0 [facility] Comment on above: Order Comment: Speci men Type: BLOOD SPECIMENOrdering Facility: [facility] Address: [address] [place] [address] Performed By: #### 5 8410-2 ####[facility] LABORATORYCLIA [id number] [address] OF [facility] MCH (RBC) [Entitic mass] 27.4 pg Normal 26.0-34.0 [facility] Comment on above: Order Comment: Speci men Type: BLOOD SPECIMENOrdering Facility: [facility] Address: [address] [place] [address] Performed By: #### 5 8410-2 ####[facility] LABORATORYCLIA [id number] [address] [place] MCHC (RBC) [Mass/Vol] 29.8 g/dL Low 30.5-36.0 [facility] Comment on above: Order Comment: Speci men Type: BLOOD SPECIMENOrdering Facility: [facility] Address: [address] [place] [address] Performed By: #### 5 8410-2 ####[facility] LABORATORYCLIA [id number] [address] MCV (RBC) [Entitic vol] 91.9 fL Normal 80.0-100.0 [facility] Comment on above: Order Comment: Speci men Type: BLOOD SPECIMENOrdering Facility: [facility] Address: [address] [place] [address] Performed By: #### 5 8410-2 ####[facility] LABORATORYCLIA [id number] [place] [address] [place] Nucleated RBC (Bld) [#/Vol] 10*3/uL Normal <0.01 [facility] Comment on above: Order Comment: Speci men Type: BLOOD SPECIMENOrdering Facility: [facility] Address: [address] [place] [address] Performed By: #### 5 8410-2 ####[facility] LABORATORYCLIA [id number] [place] [address] [place] Platelet mean volume (Bld) [Entitic vol] 11.9 fL Normal 9.0-12.7 [facility] Comment on above: Order Comment: Speci men Type: BLOOD SPECIMENOrdering Facility: [facility] Address: [address] [place] [address] Performed By: #### 5 8410-2 ####[facility] LABORATORYCLIA [id number] [place] [address] [place] Platelets (Bld) [#/Vol] 291 10*3/uL Normal 150-400 [facility] Comment on above: Order Comment: Speci men Type: BLOOD SPECIMENOrdering Facility: [facility] Address: [address] Performed By: #### 5 8410-2 ####[facility] LABORATORYCLIA [id number] [place] [address] [place] RBC (Bld) [#/Vol] 3.21 10*6/uL Low 4.20-6.00 [facility] Comment on above: Order Comment: Speci men Type: BLOOD SPECIMENOrdering Facility: [facility] Address: [address] [place] [address] Performed By: #### 5 8410-2 ####[facility] LABORATORYCLIA [id number] [address] OF [facility] WBC (Bld) [#/Vol] 10.19 10*3/uL Normal 3.70-11.00 [facility] Comment on above: Order Comment: Speci men Type: BLOOD SPECIMENOrdering Facility: [facility] Address: [address] [place] [address] Performed By: #### 5 8410-2 ####[facility] LABORATORYCLIA [id number] [address] [place] FERRITIN BLDon 06-18-2021 Ferritin [Mass/Vol] 600.9 ng/mL High 30.3-565.7 [facility] Comment on above: Order Comment: Speci men Type: BLOOD SPECIMENOrdering Facility: [facility] Address: [address] [place] [address] Performed By: #### S ERFOL, IRON, FERR ####[facility]ITALCLIA [id number] [address] FOLATE SERUMon 06-18-2021 Folate [Mass/Vol] 14.3 ng/mL Normal >4.7 [facility] Comment on above: Order Comment: Speci men Type: BLOOD SPECIMENOrdering Facility: [facility] Address: [address] [place] [address] Performed By: #### S ERFOL, IRON, FERR ####[facility] LABORATORYCLIA [id number] [address] Gas and Carbon monoxide pane l (BldV)on 06-18-2021 Base excess Calc (BldV) [Moles/Vol] 0.5 mmol/L Normal 0-2 [facility] Comment on above: Order Comment: Speci men Type: VENOUS BLOOD SPECIMENOrdering Facility: [facility] Address: [address] [place] [address] Performed By: #### 2 4344-4 ####[facility] LABORATORYCLIA [id number] [address] Body temperature 97.34 [degF] Normal [facility] Comment on above: Order Comment: Speci men Type: VENOUS BLOOD SPECIMENOrdering Facility: [facility] Address: [address] [place] [address] Performed By: #### 2 4344-4 ####[facility] LABORATORYCLIA [id number] [address] [place] [facility] CALCIUM IONIZED, PH CORRECTED 1.26 mmol/L Normal 1.08-1.30 [facility] Comment on above: Order Comment: Speci men Type: VENOUS BLOOD SPECIMENOrdering Facility: [facility] Address: [address] [place] [address] Performed By: #### 2 4344-4 ####[facility] LABORATORYCLIA [id number] [address] Calcium.ionized (BldV) [Mass/Vol] 1.25 mmol/L Normal 1.08-1.30 [facility] Comment on above: Order Comment: Speci men Type: VENOUS BLOOD SPECIMENOrdering Facility: [facility] Address: [address] [place] [address] Performed By: #### 2 4344-4 ####[facility] LABORATORYCLIA [id number] [address] [place] Carboxyhemoglobin (BldV) [Mass fraction] 1.5 % Normal 0.0-2.0 [facility] Comment on above: Order Comment: Speci men Type: VENOUS BLOOD SPECIMENOrdering Facility: [facility] Address: [address] [place] [address] Result Comment: Carb oxyhemoglobin Reference Range for Smokers: 2.0-8.0% Performed By: #### 2 4344-4 ####[facility] LABORATORYCLIA [id number] [address] [place] CO2 (BldV) [Partial pressure] 38 mm[Hg] Low 42-55 [facility] Comment on above: Order Comment: Speci men Type: VENOUS BLOOD SPECIMENOrdering Facility: [facility] Address: [address] [address] Performed By: #### 2 4344-4 ####[facility] LABORATORYCLIA [id number] [address] [place] [facility] CO2 [Moles/Vol] 22.9 mmol/L Low 25-29 [facility] Comment on above: Order Comment: Speci men Type: VENOUS BLOOD SPECIMENOrdering Facility: [facility] Address: [address] [place] [address] Performed By: #### 2 4344-4 ####[facility] LABORATORYCLIA [id number] [address] CO2 adjusted to patient's actual temperature (BldV) [Partial pressure] 37 mmHg Low 42-55 [facility] Comment on above: Order Comment: Speci men Type: VENOUS BLOOD SPECIMENOrdering Facility: [facility] Address: [address] [place] [address] Performed By: #### 2 4344-4 ####[facility]ORATORYCLIA [id number] [address] Glucose [Mass/Vol] 103 mg/dL Normal 60-105 [facility] Comment on above: Order Comment: Speci men Type: VENOUS BLOOD SPECIMENOrdering Facility: [facility] Address: [address] [address] Performed By: #### 2 4344-4 ####[facility] LABORATORYCLIA [id number] [address] [place] HCO3 (Bld) [Moles/Vol] 24.4 mmol/L Normal 24-28 [facility] Comment on above: Order Comment: Speci men Type: VENOUS BLOOD SPECIMENOrdering Facility: [facility] Address: [address] [place] [address] Performed By: #### 2 4344-4 ####[facility]ATORYCLIA [id number] [address] [facility] Hematocrit (Bld) [Volume fraction] 28.7 % Low 39.0-51.0 [facility] Comment on above: Order Comment: Speci men Type: VENOUS BLOOD SPECIMENOrdering Facility: [facility] Address: [address] [place] [address] Performed By: #### 2 4344-4 ####[facility] LABORATORYCLIA [id number] [address] [place] Hemoglobin (Bld) [Mass/Vol] 9.3 g/dL Low 13.0-17.0 [facility] Comment on above: Order Comment: Speci men Type: VENOUS BLOOD SPECIMENOrdering Facility: [facility] Address: [address] [place] [address] Performed By: #### 2 4344-4 ####[facility]ORATORYCLIA [id number] [address] [place] Methemoglobin (Bld) [Mass fraction] % Normal 0.0-1.5 [facility] Comment on above: Order Comment: Speci men Type: VENOUS BLOOD SPECIMENOrdering Facility: [facility] Address: [address] [place] [address] Performed By: #### 2 4344-4 ####[facility]ORATORYCLIA [id number] [address] [place] O2 THERAPY Ventilator Normal [facility] Comment on above: Order Comment: Speci men Type: VENOUS BLOOD SPECIMENOrdering Facility: [facility] Address: [address] [place] [address] Performed By: #### 2 4344-4 ####[facility]ORATORYCLIA [id number] [address] Oxygen (BldV) [Partial pressure] 37 mm[Hg] Normal 35-45 [facility] Comment on above: Order Comment: Speci men Type: VENOUS BLOOD SPECIMENOrdering Facility: [facility] Address: [address] [place] [address] Performed By: #### 2 4344-4 ####[facility]ATORYCLIA [id number] [place], [place] [id number] [place] [address] [place] Oxygen adjusted to patient's actual temperature (BldV) [Partial pressure] 35.1 mmHg Normal 35-45 [facility] Comment on above: Order Comment: Speci men Type: VENOUS BLOOD SPECIMENOrdering Facility: [facility] Address: [address] [place] [address] Performed By: #### 2 4344-4 ####[facility]ORATORYCLIA [id number] [address] [place] Oxygen saturation in Blood 67.1 % Normal 60-85 [facility] Comment on above: Order Comment: Speci men Type: VENOUS BLOOD SPECIMENOrdering Facility: [facility] Address: [address] [place] [address] Performed By: #### 2 4344-4 ####[facility] LABORATORYCLIA [id number] [address] Oxyhemoglobin (BldV) [Mass fraction] 66 % Normal 60-85 [facility] Comment on above: Order Comment: Speci men Type: VENOUS BLOOD SPECIMENOrdering Facility: [facility] Address: [address] [place] [address] Performed By: #### 2 4344-4 ####[facility] LABORATORYCLIA [id number] [address] [place] pH (BldV) 7.42 [pH] Normal 7.32-7.42 [facility] Comment on above: Order Comment: Speci men Type: VENOUS BLOOD SPECIMENOrdering Facility: [facility] Address: [address] [place], [place] [address] Performed By: #### 2 4344-4 ####[facility] LABORATORYCLIA [id number] [address] pH adjusted to patient's actual temperature (BldV) 7.43 High 7.32-7.42 [facility] Comment on above: Order Comment: Speci men Type: VENOUS BLOOD SPECIMENOrdering Facility: [facility] Address: [address] [place] [address] Performed By: #### 2 4344-4 ####[facility] LABORATORYCLIA [id number] [place] [address] [place] Potassium [Moles/Vol] 4.0 mmol/L Normal 3.5-5.0 [facility] Comment on above: Order Comment: Speci men Type: VENOUS BLOOD SPECIMENOrdering Facility: [facility] Address: [address] [place] [address] Performed By: #### 2 4344-4 ####[facility] LABORATORYCLIA [id number] [address] [place] Sodium [Moles/Vol] 146 mmol/L High 136-144 [facility] Comment on above: Order Comment: Speci men Type: VENOUS BLOOD SPECIMENOrdering Facility: [facility] Address: [address] [place] [address] Performed By: #### 2 4344-4 ####[facility] LABORATORYCLIA [id number] [place] [address] [place] HEMOGLOBIN (HGB)on Hemoglobin (Bld) [Mass/Vol] 9.2 g/dL Low 13.0-17.0 [facility] Comment on above: Order Comment: Speci men Type: BLOOD SPECIMENOrdering Facility: [facility] Address: [address] [place] [address] Performed By: #### H GB ####[facility] LABORATORYCLIA [id number] [address] [place] IRON + TIBCon 06-18-2021 Iron [Mass/Vol] 27 ug/dL Low 41-186 [facility] Comment on above: Order Comment: Speci men Type: BLOOD SPECIMENOrdering Facility: [facility] Address: [address] [place] [address] Performed By: #### S ERFOL, IRON, FERR ####[facility] LABORATORYCLIA [id number] [address] Iron binding capacity [Mass/Vol] 141 ug/dL Low 232-386 [facility] Comment on above: Order Comment: Speci men Type: BLOOD SPECIMENOrdering Facility: [facility] Address: [address] [place] [address] Performed By: #### S ERFOL, IRON, FERR ####[facility] LABORATORYCLIA [id number] [address] Iron saturation [Mass fraction] 19 % Normal 15-57 [facility] Comment on above: Order Comment: Speci men Type: BLOOD SPECIMENOrdering Facility: [facility] Address: [address] [place] [address] Performed By: #### S ERFOL, IRON, FERR ####[facility]ORATORYCLIA [id number] [address] Magnesium SerPl-mCncon 06-18 Magnesium [Mass/Vol] 2.5 mg/dL High 1.7-2.3 [facility] Comment on above: Order Comment: Speci men Type: BLOOD SPECIMENOrdering Facility: [facility] Address: [address] [place] [address] Performed By: #### 2 4321-2, , 2776- ####[facility]ORATORYCLIA [id number] [address] NURSING PROGon 06-18-2021 NURSING PROG Normal [facility] Phosphate SerPl-mCncon 06-18 Phosphate [Mass/Vol] 3.0 mg/dL Normal 2.7-4.8 [facility] Comment on above: Order Comment: Speci men Type: BLOOD SPECIMENOrdering Facility: [facility] Address: [address] [place] [address] Performed By: #### 2 4321-2, 82061-5, 2777-1 ####[facility] LABORATORYCLIA [id number] [address] THERAPY NTon 06-18-2021 THERAPY NT Normal [facility] aPTT PPPon 06-18-2021 aPTT Coag (PPP) [Time] 43.0 s High 23.0-32.4 [facility] Comment on above: Order Comment: Speci men Type: BLOOD SPECIMENOrdering Facility: [facility] Address: [address] [place] [address] Performed By: #### 1 4979-9 ####[facility] LABORATORYCLIA [id number] [address] aPTT Coag (PPP) [Time] 60.6 s High 23.0-32.4 [facility] Comment on above: Order Comment: Speci men Type: BLOOD SPECIMENOrdering Facility: [facility] Address: [address] [place] [address] Performed By: #### 1 4979-9 ####[facility] [id number] [address] aPTT Coag (PPP) [Time] 46.4 s High 23.0-32.4 [facility] Comment on above: Order Comment: Speci men Type: BLOOD SPECIMENOrdering Facility: [facility] Address: [address] [place] [address] Performed By: #### 1 4979-9 ####[facility]ORATORYCLIA [id number] [address] [place] Basic metabolic 2000 panelon 06-17-2021 Anion gap [Moles/Vol] 7 mmol/L Low 9-18 [facility] Comment on above: Order Comment: Speci men Type: BLOOD SPECIMENOrdering Facility: [facility] Address: [address] [place] [address] Performed By: #### 2 951-2, 56070-5, 2777-1, 59406-2 ####[facility] LABORATORYCLIA [id number] [address] OF [facility] Calcium [Mass/Vol] 8.1 mg/dL Low 8.5-10.2 [facility] Comment on above: Order Comment: Speci men Type: BLOOD SPECIMENOrdering Facility: [facility] Address: [address] [place] [address] Performed By: #### 2 951-2, , 2776-05, 64926-9 ####[facility]ORATORYCLIA [id number] [place] [address] [place] Chloride [Moles/Vol] 113 mmol/L High 97-105 [facility] Comment on above: Order Comment: Speci men Type: BLOOD SPECIMENOrdering Facility: [facility] Address: [address] [place] [address] Performed By: #### 2 951-2, , 2776-05, 08832-9 ####[facility]ORATORYCLIA [id number] [place] [address] [place] CO2 [Moles/Vol] 25 mmol/L Normal 22-30 [facility] Comment on above: Order Comment: Speci men Type: BLOOD SPECIMENOrdering Facility: [facility] Address: [address] [place] [address] Performed By: #### 2 951-2, , 2776-05, ####[facility]ORATORYCLIA [id number] [place] [address] [place] Creatinine [Mass/Vol] 0.70 mg/dL Low 0.73-1.22 [facility] Comment on above: Order Comment: Speci men Type: BLOOD SPECIMENOrdering Facility: [facility] Address: [address] [place] [address] Performed By: #### 2 951-2, , 2776-05, 31425-8 ####[facility]ORATORYCLIA [id number] [place] [address] [place] GFR/1.73 sq M.predicted MDRD (S/P/Bld) [Vol rate/Area] mL/min/{1.73_m2} Normal [facility] Comment on above: Order Comment: Shira feldman Type: BLOOD SPECIMENOrdering Facility: [facility] Address: [address] [place] [address] Result Comment: >60e GFR (Estimated GFR) Units [...] actual GFR. Performed By: #### 2 951-2, 87546-3, 2777-1, 91304-7 ####[facility]ITALCLIA [id number] [place] [id number] [place] Glucose [Mass/Vol] 122 mg/dL High 74-99 [facility] Comment on above: Order Comment: Shira feldman Type: BLOOD SPECIMENOrdering Facility: [facility] Address: [address] [place] [address] Result Comment: The [place] [employer] (ADA) provides guidance for cutoff [...] Standards of Medical Care in Diabetes 2016, [place] [employer]. Diabetes Care. 2016.39(Suppl 1). Performed By: #### 2 951-2, 84071-7, 2777-1, 60102-7 ####[facility] LABORATORYCLIA [id number] [place] [address] [place] Potassium [Moles/Vol] 3.5 mmol/L Low 3.7-5.1 [facility] Comment on above: Order Comment: Speci men Type: BLOOD SPECIMENOrdering Facility: [facility] Address: [address] [place] [address] Performed By: #### 2 951-2, 98089-4, 2777-1, 25224-2 ####[facility] LABORATORYCLIA [id number] [address] STATES OF [facility] Urea nitrogen [Mass/Vol] 27 mg/dL High 9-24 [facility] Comment on above: Order Comment: Speci men Type: BLOOD SPECIMENOrdering Facility: [facility] Address: [address] [place] [address] Performed By: #### 2 951-2, 66240-9, 2777-1, 46945-6 ####[facility] LABORATORYCLIA [id number] [address] CASE MANAGEMon 06-17-2021 CASE MANAGEM Normal [facility] CBC panel Auto (Bld)on 06-17 Erythrocyte distribution width (RBC) [Ratio] 15.9 % High 11.5-15.0 [facility] Comment on above: Order Comment: Speci men Type: BLOOD SPECIMENOrdering Facility: [facility] Address: [address] [place] [address] Performed By: #### 5 8410-2 ####[facility]ORATORYCLIA [id number] [address] Hematocrit (Bld) [Volume fraction] 28.9 % Low 39.0-51.0 [facility] Comment on above: Order Comment: Speci men Type: BLOOD SPECIMENOrdering Facility: [facility] Address: [address] [place] [address] Performed By: #### 5 8410-2 ####[facility] LABORATORYCLIA [id number] [address] STATES OF [facility] Hemoglobin (Bld) [Mass/Vol] 8.8 g/dL Low 13.0-17.0 [facility] Comment on above: Order Comment: Speci men Type: BLOOD SPECIMENOrdering Facility: [facility] Address: [address] [place] [address] Performed By: #### 5 8410-2 ####[facility] LABORATORYCLIA [id number] [address] STATES [facility] MCH (RBC) [Entitic mass] 28.4 pg Normal 26.0-34.0 [facility] Comment on above: Order Comment: Speci men Type: BLOOD SPECIMENOrdering Facility: [facility] Address: [address] [place] [address] Performed By: #### 5 8410-2 ####[facility] LABORATORYCLIA [id number] [address] STATES [facility] MCHC (RBC) [Mass/Vol] 30.4 g/dL Low 30.5-36.0 [facility] Comment on above: Order Comment: Speci men Type: BLOOD SPECIMENOrdering Facility: [facility] Address: [address] [place] [address] Performed By: #### 5 8410-2 ####[facility]ORATORYCLIA [id number] [address] MCV (RBC) [Entitic vol] 93.2 fL Normal 80.0-100.0 [facility] Comment on above: Order Comment: Speci men Type: BLOOD SPECIMENOrdering Facility: [facility] Address: [address] [place] [address] Performed By: #### 5 8410-2 ####[facility] LABORATORYCLIA [id number] [address] Nucleated RBC (Bld) [#/Vol] 10*3/uL Normal <0.01 [facility] Comment on above: Order Comment: Speci men Type: BLOOD SPECIMENOrdering Facility: [facility] Address: [address] [place] [address] Performed By: #### 5 8410-2 ####[facility]ORATORYCLIA [id number] [address] Platelet mean volume (Bld) [Entitic vol] 11.9 fL Normal 9.0-12.7 [facility] Comment on above: Order Comment: Speci men Type: BLOOD SPECIMENOrdering Facility: [facility] Address: [address] [place] [address] Performed By: #### 5 8410-2 ####[facility] LABORATORYCLIA [id number] [address] OF [facility] Platelets (Bld) [#/Vol] 257 10*3/uL Normal 150-400 [facility] Comment on above: Order Comment: Speci men Type: BLOOD SPECIMENOrdering Facility: [facility] Address: [address] [place] [address] Performed By: #### 5 8410-2 ####[facility]ORATORYCLIA [id number] [address] RBC (Bld) [#/Vol] 3.10 10*6/uL Low 4.20-6.00 [facility] Comment on above: Order Comment: Speci men Type: BLOOD SPECIMENOrdering Facility: [facility] Address: [address] [place] [address] Performed By: #### 5 8410-2 ####[facility]ORATORYCLIA [id number] [address] WBC (Bld) [#/Vol] 10.54 10*3/uL Normal 3.70-11.00 [facility] Comment on above: Order Comment: Speci men Type: BLOOD SPECIMENOrdering Facility: [facility] Address: [address] [place] [address] Performed By: #### 5 8410-2 ####[facility]ORATORYCLIA [id number] [address] HEMOGLOBIN (HGB)on 2 Hemoglobin (Bld) [Mass/Vol] 8.8 g/dL Low 13.0-17.0 [facility] Comment on above: Order Comment: Speci men Type: BLOOD SPECIMENOrdering Facility: [facility] Address: [address] [place] [address] Performed By: #### H GB ####[facility] LABORATORYCLIA [id number] [address] [place] Magnesium SerPl-mCncon 06-17 Magnesium [Mass/Vol] 2.5 mg/dL High 1.7-2.3 [facility] Comment on above: Order Comment: Speci men Type: BLOOD SPECIMENOrdering Facility: [facility] Address: [address] [place] [address] Performed By: #### 2 951-2, , 2776-05, 03515-2 ####[facility]ORATORYCLIA [id number] [place] [address] [place] NURSING PROGon 06-17-2021 NURSING PROG Normal [facility] NURSING PROG Normal [facility] NURSING PROG Normal [facility] Phosphate SerPl-mCncon 06-17 Phosphate [Mass/Vol] 1.9 mg/dL Low 2.7-4.8 [facility] Comment on above: Order Comment: Speci men Type: BLOOD SPECIMENOrdering Facility: [facility] Address: [address] [place] [address] Performed By: #### 2 951-2, , 2776-05, 69837-0 ####[facility]ORATORYCLIA [id number] [place] [address] [place] Sodium SerPl-sCncon 06-17-19 22 Sodium [Moles/Vol] 144 mmol/L Normal 136-144 [facility] Comment on above: Order Comment: Speci men Type: BLOOD SPECIMENOrdering Facility: [facility] Address: [address] [place] [address] Performed By: #### 2 951-2 ####[facility]ORATORYCLIA [id number] [address] STATES OF [facility] Sodium [Moles/Vol] 145 mmol/L High 136-144 [facility] Comment on above: Order Comment: Speci men Type: BLOOD SPECIMENOrdering Facility: [facility] Address: [address] [place] [address] Performed By: #### 2 951-2, 08449-9, 2777-1, 51179-2 ####[facility]ORATORYCLIA [id number] [address] [place] aPTT PPPon 06-17-2021 aPTT Coag (PPP) [Time] 55.8 s High 23.0-32.4 [facility] Comment on above: Order Comment: Speci men Type: BLOOD SPECIMENOrdering Facility: [facility] Address: [address] [place] [address] Performed By: #### 1 4979-9 ####[facility] LABORATORYCLIA [id number] [address] [place] ARTERIAL BLOOD GASESon 06-16 Base excess Calc (Bld) [Moles/Vol] 3 mmol/L High 0-2 [facility] Comment on above: Order Comment: Speci men Type: ARTERIAL BLOOD SPECIMENOrdering Facility: [facility] Address: [address] [place] [address] Performed By: #### A LLBG ####[facility] LABORATORYCLIA [id number] [address] [place] Body temperature 99.14 [degF] Normal [facility] Comment on above: Order Comment: Speci men Type: ARTERIAL BLOOD SPECIMENOrdering Facility: [facility] Address: [address] [place] [address] Performed By: #### A LLBG ####[facility] LABORATORYCLIA [id number] [address] [place] CALCIUM IONIZED, PH CORRECTED 1.21 mmol/L Normal 1.08-1.30 [facility] Comment on above: Order Comment: Speci men Type: ARTERIAL BLOOD SPECIMENOrdering Facility: [facility] Address: [address] [place] [address] Performed By: #### A LLBG ####[facility] LABORATORYCLIA [id number] [address] [place] Calcium.ionized (BldV) [Mass/Vol] 1.17 mmol/L Normal 1.08-1.30 [facility] Comment on above: Order Comment: Speci men Type: ARTERIAL BLOOD SPECIMENOrdering Facility: [facility] Address: [address] [place] [address] Performed By: #### A LLBG ####[facility]ORATORYCLIA [id number] [address] Carboxyhemoglobin (BldA) [Mass fraction] 1.4 % Normal 0.0-2.0 [facility] Comment on above: Order Comment: Speci men Type: ARTERIAL BLOOD SPECIMENOrdering Facility: [facility] Address: [address] [place] [address] Result Comment: Carb oxyhemoglobin Reference Range for Smokers: 2.0-8.0% Performed By: #### A LLBG ####[facility]ORATORYCLIA [id number] [address] [place] CO2 (Bld) [Partial pressure] 38 mm Hg Normal 36-46 [facility] Comment on above: Order Comment: Speci men Type: ARTERIAL BLOOD SPECIMENOrdering Facility: [facility] Address: [address] [place] [address] Performed By: #### A LLBG ####[facility] LABORATORYCLIA [id number] [address] [place] CO2 [Moles/Vol] 24.5 mmol/L Normal 22-28 [facility] Comment on above: Order Comment: Speci men Type: ARTERIAL BLOOD SPECIMENOrdering Facility: [facility] Address: [address] [place] [address] Performed By: #### A LLBG ####[facility] LABORATORYCLIA [id number] [address] OF [facility] CO2 adjusted to patient's actual temperature (Bld) [Partial pressure] 38 mmHg Normal 36-46 [facility] Comment on above: Order Comment: Speci men Type: ARTERIAL BLOOD SPECIMENOrdering Facility: [facility] Address: [address] [place] [address] Performed By: #### A LLBG ####[facility]ORATORYCLIA [id number] [address] [place] Glucose [Mass/Vol] 147 mg/dL High 60-105 [facility] Comment on above: Order Comment: Speci men Type: ARTERIAL BLOOD SPECIMENOrdering Facility: [facility] Address: [address] [place] [address] Performed By: #### A LLBG ####[facility] LABORATORYCLIA [id number] [address] [place] HCO3 (Bld) [Moles/Vol] 27 mmol/L High 22-26 [facility] Comment on above: Order Comment: Speci men Type: ARTERIAL BLOOD SPECIMENOrdering Facility: [facility] Address: [address] [place] [address] Performed By: #### A LLBG ####[facility]ORATORYCLIA [id number] [address] [place] Hematocrit (Bld) [Volume fraction] 31.8 % Low 39.0-51.0 [facility] Comment on above: Order Comment: Speci men Type: ARTERIAL BLOOD SPECIMENOrdering Facility: [facility] Address: [address] [place] [address] Performed By: #### A LLBG ####[facility]ORATORYCLIA [id number] [address] [place] Hemoglobin (Bld) [Mass/Vol] 10.3 g/dL Low 13.0-17.0 [facility] Comment on above: Order Comment: Speci men Type: ARTERIAL BLOOD SPECIMENOrdering Facility: [facility] Address: [address] [place] [address] Performed By: #### A LLBG ####[facility]ATORYCLIA [id number] [address] Methemoglobin (Bld) [Mass fraction] 1.0 % Normal 0.0-1.5 [facility] Comment on above: Order Comment: Speci men Type: ARTERIAL BLOOD SPECIMENOrdering Facility: [facility] Address: [address] [place] [address] Performed By: #### A LLBG ####[facility]ORYCLIA [id number] [address] O2 THERAPY Ventilator Normal [facility] Comment on above: Order Comment: Speci men Type: ARTERIAL BLOOD SPECIMENOrdering Facility: [facility] Address: [address] [place] [address] Performed By: #### A LLBG ####[facility]ORYCLIA [id number] [address] Oxygen (Bld) [Partial pressure] 78 mm Hg Low 85-95 [facility] Comment on above: Order Comment: Speci men Type: ARTERIAL BLOOD SPECIMENOrdering Facility: [facility] Address: [address] [place] [address] Performed By: #### A LLBG ####[facility]ORYCLIA [id number] [address] Oxygen adjusted to patient's actual temperature (Bld) [Partial pressure] 79.7 mmHg Low 85-95 [facility] Comment on above: Order Comment: Speci men Type: ARTERIAL BLOOD SPECIMENOrdering Facility: [facility] Address: [address] [place] [address] Performed By: #### A LLBG ####[facility]ORYCLIA [id number] [address] [place] OXYGEN SATURATION, ARTERIAL 96 % Normal 95-98 [facility] Comment on above: Order Comment: Speci men Type: ARTERIAL BLOOD SPECIMENOrdering Facility: [facility] Address: [address] [place] [address] Performed By: #### A LLBG ####[facility]ORATORYCLIA [id number] [address] [place] Oxyhemoglobin (BldA) [Mass fraction] 94 % Low 95-98 [facility] Comment on above: Order Comment: Speci men Type: ARTERIAL BLOOD SPECIMENOrdering Facility: [facility] Address: [address] [place] [address] Performed By: #### A LLBG ####[facility]ORATORYCLIA [id number] [place] [address] [place] pH (Bld) 7.47 [pH] High 7.35-7.45 [facility] Comment on above: Order Comment: Speci men Type: ARTERIAL BLOOD SPECIMENOrdering Facility: [facility] Address: [address] [place] [address] Performed By: #### A LLBG ####[facility]ORATORYCLIA [id number] [address] pH adjusted to patient's actual temperature (Bld) 7.46 High 7.35-7.45 [facility] Comment on above: Order Comment: Speci men Type: ARTERIAL BLOOD SPECIMENOrdering Facility: [facility] Address: [address] [place] [address] Performed By: #### A LLBG ####[facility]ORATORYCLIA [id number] [address] [place] Potassium [Moles/Vol] 3.7 mmol/L Normal 3.5-5.0 [facility] Comment on above: Order Comment: Speci men Type: ARTERIAL BLOOD SPECIMENOrdering Facility: [facility] Address: [address] [place] [address] Performed By: #### A LLBG ####[facility]ORATORYCLIA [id number] [place] [address] [place] Sodium [Moles/Vol] 155 mmol/L High 136-144 [facility] Comment on above: Order Comment: Speci men Type: ARTERIAL BLOOD SPECIMENOrdering Facility: [facility] Address: [address] [place] [address] Performed By: #### A LLBG ####[facility]ORATORYCLIA [id number] [place] [address] [place] Bacteria Spec Resp Culton Bacteria identified Respiratory culture Nom (Unsp spec) CULTURE, RESPIRATORY: Rare Normal respiratory chris present ORGANISM ID: 1 Few Yeast, not cryptococcus neoformans GRAM STAIN: No organisms seen Few Polymorphonuclear leukocytes Few Epithelial cells Abnormal [facility] Comment on above: Performed By: #### 3 2355-0 ####[facility]ORATORYCLIA [id number] [place] [address] [place] Basic metabolic 2000 panelon 06-16-2021 Anion gap [Moles/Vol] 9 mmol/L Normal 9-18 [facility] Comment on above: Order Comment: Speci men Type: BLOOD SPECIMENOrdering Facility: [facility] Address: [address] [place] [address] Performed By: #### 2 4321-2 ####[facility] LABORATORYCLIA [id number] [place] [address] [place] Calcium [Mass/Vol] 8.4 mg/dL Low 8.5-10.2 [facility] Comment on above: Order Comment: Speci men Type: BLOOD SPECIMENOrdering Facility: [facility] Address: [address] [place] [address] Performed By: #### 2 4321-2 ####[facility] LABORATORYCLIA [id number] [place] [address] [place] Chloride [Moles/Vol] 120 mmol/L High 97-105 [facility] Comment on above: Order Comment: Speci men Type: BLOOD SPECIMENOrdering Facility: [facility] Address: [address] [place] [address] Performed By: #### 2 4321-2 ####[facility] LABORATORYCLIA [id number] [place] [address] [place] CO2 [Moles/Vol] 27 mmol/L Normal 22-30 [facility] Comment on above: Order Comment: Speci men Type: BLOOD SPECIMENOrdering Facility: [facility] Address: [address] [place] [address] Performed By: #### 2 4321-2 ####[facility] LABORATORYCLIA [id number] [place] [address] [place] Creatinine [Mass/Vol] 0.75 mg/dL Normal 0.73-1.22 [facility] Comment on above: Order Comment: Speci men Type: BLOOD SPECIMENOrdering Facility: [facility] Address: [address] [place] [address] Performed By: #### 2 4321-2 ####[facility]IA [id number] [place] [address] [place] GFR/1.73 sq M.predicted MDRD (S/P/Bld) [Vol rate/Area] mL/min/{1.73_m2} Normal [facility] Comment on above: Order Comment: Speci francia Type: BLOOD SPECIMENOrdering Facility: [facility] Address: [address] [place] [address] Result Comment: >60e GFR (Estimated GFR) Units [...] By: #### 2 4321-2 ####[facility] LABORATORYCLIA [id number] [place] [address] [place] Glucose [Mass/Vol] 160 mg/dL High 74-99 [facility] Comment on above: Order Comment: Speci men Type: BLOOD SPECIMENOrdering Facility: [facility] Address: [address] [place] [address] Result Comment: The [place] [employer] (ADA) provides guidance for cutoff [...] Standards of Medical Care in Diabetes 2016, [place] [employer]. Diabetes Care. 2016.39(Suppl 1). Performed By: #### 2 4321-2 ####[facility] LABORATORYCLIA [id number] [place] [address] [place] Potassium [Moles/Vol] 3.1 mmol/L Low 3.7-5.1 [facility] Comment on above: Order Comment: [facility] Type: BLOOD SPECIMENOrdering Facility: [facility] Address: [address] [address] Performed By: #### 2 4321-2 ####[facility] LABORATORYCLIA [id number] [place] [address] [place] Sodium [Moles/Vol] 156 mmol/L High 136-144 [facility] Comment on above: Order Comment: Johni men Type: BLOOD SPECIMENOrdering Facility: [facility] Address: [address] [address] Performed By: #### 2 4321-2 ####[facility] LABORATORYCLIA [id number] [place] [address] [place] Urea nitrogen [Mass/Vol] 33 mg/dL High 9-24 [facility] Comment on above: Order Comment: [facility] Type: BLOOD SPECIMENOrdering Facility: [facility] Address: [address] [address] Performed By: #### 2 4321-2 ####[facility] LABORATORYCLIA [id number] [address] CASE MANAGEMon 06-16-2021 CASE MANAGEM Normal [facility] CBC panel Auto (Bld)on 06-16 Erythrocyte distribution width (RBC) [Ratio] 15.9 % High 11.5-15.0 [facility] Comment on above: Order Comment: Speci men Type: BLOOD SPECIMENOrdering Facility: [facility] Address: [address] [place] [address] Performed By: #### 5 8410-2 ####[facility] LABORATORYCLIA [id number] [address] Hematocrit (Bld) [Volume fraction] 34.6 % Low 39.0-51.0 [facility] Comment on above: Order Comment: Speci men Type: BLOOD SPECIMENOrdering Facility: [facility] Address: [address] [place] [address] Performed By: #### 5 8410-2 ####[facility] LABORATORYCLIA [id number] [address] Hemoglobin (Bld) [Mass/Vol] 10.2 g/dL Low 13.0-17.0 [facility] Comment on above: Order Comment: Speci men Type: BLOOD SPECIMENOrdering Facility: [facility] Address: [address] [place] [address] Performed By: #### 5 8410-2 ####[facility] LABORATORYCLIA [id number] [address] MCH (RBC) [Entitic mass] 28.5 pg Normal 26.0-34.0 [facility] Comment on above: Order Comment: Speci men Type: BLOOD SPECIMENOrdering Facility: [facility] Address: [address] [place] [address] Performed By: #### 5 8410-2 ####[facility] LABORATORYCLIA [id number] [place] [address] MCHC (RBC) [Mass/Vol] 29.5 g/dL Low 30.5-36.0 [facility] Comment on above: Order Comment: Speci men Type: BLOOD SPECIMENOrdering Facility: [facility] Address: [address] [place] [address] Performed By: #### 5 8410-2 ####[facility] LABORATORYCLIA [id number] [address] [place] MCV (RBC) [Entitic vol] 96.6 fL Normal 80.0-100.0 [facility] Comment on above: Order Comment: Speci men Type: BLOOD SPECIMENOrdering Facility: [facility] Address: [address] [place] [address] Performed By: #### 5 8410-2 ####[facility] LABORATORYCLIA [id number] [address] Nucleated RBC (Bld) [#/Vol] 10*3/uL Normal <0.01 [facility] Comment on above: Order Comment: Speci men Type: BLOOD SPECIMENOrdering Facility: [facility] Address: [address] [place] [address] Performed By: #### 5 8410-2 ####[facility] LABORATORYCLIA [id number] [address] [place] Platelet mean volume (Bld) [Entitic vol] 11.9 fL Normal 9.0-12.7 [facility] Comment on above: Order Comment: Speci men Type: BLOOD SPECIMENOrdering Facility: [facility] Address: [address] [place] [address] Performed By: #### 5 8410-2 ####[facility] LABORATORYCLIA [id number] [address] [place] Platelets (Bld) [#/Vol] 269 10*3/uL Normal 150-400 [facility] Comment on above: Order Comment: Speci men Type: BLOOD SPECIMENOrdering Facility: [facility] Address: [address] [address] Performed By: #### 5 8410-2 ####[facility] LABORATORYCLIA [id number] [address] [place] RBC (Bld) [#/Vol] 3.58 10*6/uL Low 4.20-6.00 [facility] Comment on above: Order Comment: Speci men Type: BLOOD SPECIMENOrdering Facility: [facility] Address: [address] [place] [address] Performed By: #### 5 8410-2 ####[facility] LABORATORYCLIA [id number] [address] STATES OF [facility] WBC (Bld) [#/Vol] 13.11 10*3/uL High 3.70-11.00 [facility] Comment on above: Order Comment: Speci men Type: BLOOD SPECIMENOrdering Facility: [facility] Address: [address] [place] [address] Performed By: #### 5 8410-2 ####[facility] LABORATORYCLIA [id number] [address] [place] CONSULTon 06-16-2021 CONSULT Normal [facility] CONSULT PROGon 06-16-2021 CONSULT PROG Normal [facility] CT BRAIN WO IVCONon 06-16-[address] BRAIN WO IVCON Normal [facility] HEMOGLOBIN (HGB)on 2 Hemoglobin (Bld) [Mass/Vol] 8.9 g/dL Low 13.0-17.0 [facility] Comment on above: Order Comment: Speci men Type: BLOOD SPECIMENOrdering Facility: [facility] Address: [address] [place] [address] Performed By: #### H GB ####[facility] LABORATORYCLIA [id number] [address] STATES OF [facility] Hemoglobin (Bld) [Mass/Vol] 9.6 g/dL Low 13.0-17.0 [facility] Comment on above: Order Comment: Speci men Type: BLOOD SPECIMENOrdering Facility: [facility] Address: [address] [place] [address] Performed By: #### H GB ####[facility] LABORATORYCLIA [id number] [place] [address] [place] Magnesium SerPl-mCncon 06-16 Magnesium [Mass/Vol] 2.7 mg/dL High 1.7-2.3 [facility] Comment on above: Order Comment: Speci men Type: BLOOD SPECIMENOrdering Facility: [facility] Address: [address] [place] [address] Performed By: #### 1 9123-9 ####[facility] LABORATORYCLIA [id number] [place] [address] [place] NURSING PROGon 06-16-2021 NURSING PROG Normal [facility] NUTRITIONon 06-16-2021 NUTRITION Normal [facility] Phosphate SerPl-mCncon 06-16 Phosphate [Mass/Vol] 1.4 mg/dL Low 2.7-4.8 [facility] Comment on above: Order Comment: Speci men Type: BLOOD SPECIMENOrdering Facility: [facility] Address: [address] [place] [address] Performed By: #### 2 777-1 ####[facility] LABORATORYCLIA [id number] [address] [place] STAPH AUREUS PCRon 2 S. aureus and MRSA panel MEGAN+probe (Nose) Normal Negative [facility] Comment on above: Order Comment: Speci men Type: SWAB OF INTERNAL NOSEOrdering Facility: [facility] Address: [address] [place] [address] Result Comment: Nega tive for Staphylococcus aureus by PCR.Negative for MRSA by PCR Performed By: #### S APCR ####[facility] LABORATORYCLIA [id number] [place] [address] [place] Sodium SerPl-sCncon 06-16-19 Sodium [Moles/Vol] 150 mmol/L High 136-144 [facility] Comment on above: Order Comment: Speci men Type: BLOOD SPECIMENOrdering Facility: [facility] Address: [address] [place] [address] Performed By: #### 2 951-2 ####[facility] LABORATORYCLIA [id number] [address] [place] Sodium [Moles/Vol] 153 mmol/L High 136-144 [facility] Comment on above: Order Comment: Speci men Type: BLOOD SPECIMENOrdering Facility: [facility] Address: [address] [place] [address] Performed By: #### 2 951-2 ####[facility] LABORATORYCLIA [id number] [address] STATES OF [facility] Sodium [Moles/Vol] 158 mmol/L High 136-144 [facility] Comment on above: Order Comment: Speci men Type: BLOOD SPECIMENOrdering Facility: [facility] Address: [address] [place] [address] Performed By: #### 2 951-2 ####[facility] LABORATORYCLIA [id number] [address] [place] aPTT PPPon 06-16-2021 aPTT Coag (PPP) [Time] 61.8 s High 23.0-32.4 [facility] Comment on above: Order Comment: Speci men Type: BLOOD SPECIMENOrdering Facility: [facility] Address: [address] [place] [address] Performed By: #### 1 4979-9 ####[facility] LABORATORYCLIA [id number] [address] [place] aPTT Coag (PPP) [Time] 57.6 s High 23.0-32.4 [facility] Comment on above: Order Comment: Speci men Type: BLOOD SPECIMENOrdering Facility: [facility] Address: [address] [place] [address] Performed By: #### 1 4979-9 ####[facility]ORATORYCLIA [id number] [place] [address] [place] ALLIED HEALTHon 06-15-2021 [...] Speci men Type: ARTERIAL BLOOD SPECIMENOrdering Facility: [facility] Address: [address] [place] [address] Performed By: #### A LLBG ####[facility] LABORATORYCLIA [id number] [address] Body temperature 99.5 [degF] Normal [facility] Comment on above: Order Comment: Speci men Type: ARTERIAL BLOOD SPECIMENOrdering Facility: [facility] Address: [address] [place] [address] Performed By: #### A LLBG ####[facility] LABORATORYCLIA [id number] [place] [address] [place] CALCIUM IONIZED, PH CORRECTED 1.34 mmol/L High 1.08-1.30 [facility] Comment on above: Order Comment: Speci men Type: ARTERIAL BLOOD SPECIMENOrdering Facility: [facility] Address: [address] [place] [address] Performed By: #### A LLBG ####[facility] LABORATORYCLIA [id number] [place] [address] [place] Calcium.ionized (BldV) [Mass/Vol] 1.29 mmol/L Normal 1.08-1.30 [facility] Comment on above: Order Comment: Speci men Type: ARTERIAL BLOOD SPECIMENOrdering Facility: [facility] Address: [address] [place] [address] Performed By: #### A LLBG ####[facility] LABORATORYCLIA [id number] [address] [place] Carboxyhemoglobin (BldA) [Mass fraction] 1.3 % Normal 0.0-2.0 [facility] Comment on above: Order Comment: Speci men Type: ARTERIAL BLOOD SPECIMENOrdering Facility: [facility] Address: [address] [address] Result Comment: Carb oxyhemoglobin Reference Range for Smokers: 2.0-8.0% Performed By: #### A LLBG ####[facility]ORATORYCLIA [id number] [address] [place] CO2 (Bld) [Partial pressure] 37 mm Hg Normal 36-46 [facility] Comment on above: Order Comment: Speci men Type: ARTERIAL BLOOD SPECIMENOrdering Facility: [facility] Address: [address] [place] [address] Performed By: #### A LLBG ####[facility] LABORATORYCLIA [id number] [address] [place] CO2 [Moles/Vol] 24.6 mmol/L Normal 22-28 [facility] Comment on above: Order Comment: Speci men Type: ARTERIAL BLOOD SPECIMENOrdering Facility: [facility] Address: [address] [place] [address] Performed By: #### A LLBG ####[facility]ORATORYCLIA [id number] [address] [place] CO2 adjusted to patient's actual temperature (Bld) [Partial pressure] 38 mmHg Normal 36-46 [facility] Comment on above: Order Comment: Speci men Type: ARTERIAL BLOOD SPECIMENOrdering Facility: [facility] Address: [address] [address] Performed By: #### A LLBG ####[facility]ORATORYCLIA [id number] [address] [place] FIO2 100 % Normal [facility] Comment on above: Order Comment: Speci men Type: ARTERIAL BLOOD SPECIMENOrdering Facility: [facility] Address: [address] [address] Performed By: #### A LLBG ####[facility]ORATORYCLIA [id number] [address] [place] Glucose [Mass/Vol] 159 mg/dL High 60-105 [facility] Comment on above: Order Comment: Speci men Type: ARTERIAL BLOOD SPECIMENOrdering Facility: [facility] Address: [address] [address] Performed By: #### A LLBG ####[facility] LABORATORYCLIA [id number] [place] [address] [place] HCO3 (Bld) [Moles/Vol] 27 mmol/L High 22-26 [facility] Comment on above: Order Comment: Speci men Type: ARTERIAL BLOOD SPECIMENOrdering Facility: [facility] Address: [address] [place] [address] Performed By: #### A LLBG ####[facility] LABORATORYCLIA [id number] [address] [place] Hematocrit (Bld) [Volume fraction] 31.0 % Low 39.0-51.0 [facility] Comment on above: Order Comment: Speci men Type: ARTERIAL BLOOD SPECIMENOrdering Facility: [facility] Address: [address] [place] [address] Performed By: #### A LLBG ####[facility] LABORATORYCLIA [id number] [address] [place] Hemoglobin (Bld) [Mass/Vol] 10.0 g/dL Low 13.0-17.0 [facility] Comment on above: Order Comment: Speci men Type: ARTERIAL BLOOD SPECIMENOrdering Facility: [facility] Address: [address] [address] Performed By: #### A LLBG ####[facility] LABORATORYCLIA [id number] [address] [place] Methemoglobin (Bld) [Mass fraction] % Normal 0.0-1.5 [facility] Comment on above: Order Comment: Speci men Type: ARTERIAL BLOOD SPECIMENOrdering Facility: [facility] Address: [address] [place], [place] [address] Performed By: #### A LLBG ####[facility]ORATORYCLIA [id number] [address] O2 THERAPY Ventilator Normal [facility] Comment on above: Order Comment: Speci men Type: ARTERIAL BLOOD SPECIMENOrdering Facility: [facility] Address: [address] [address] Performed By: #### A LLBG ####[facility]ORATORYCLIA [id number] [address] [place] Oxygen (Bld) [Partial pressure] 279 mm Hg High 85-95 [facility] Comment on above: Order Comment: Speci men Type: ARTERIAL BLOOD SPECIMENOrdering Facility: [facility] Address: [address] [address] Performed By: #### A LLBG ####[facility] LABORATORYCLIA [id number] [address] Oxygen adjusted to patient's actual temperature (Bld) [Partial pressure] 281 mmHg High 85-95 [facility] Comment on above: Order Comment: Speci men Type: ARTERIAL BLOOD SPECIMENOrdering Facility: [facility] Address: [facility] [address] Performed By: #### A LLBG ####[facility] LABORATORYCLIA [id number] [address] [place] OXYGEN SATURATION, ARTERIAL 100 % High 95-98 [facility] Comment on above: Order Comment: Speci men Type: ARTERIAL BLOOD SPECIMENOrdering Facility: [facility] Address: [address] [address] Performed By: #### A LLBG ####[facility]ORATORYCLIA [id number] [address] Oxyhemoglobin (BldA) [Mass fraction] 98 % Normal 95-98 [facility] Comment on above: Order Comment: Speci men Type: ARTERIAL BLOOD SPECIMENOrdering Facility: [facility] Address: [address] [place] [address] Performed By: #### A LLBG ####[facility] LABORATORYCLIA [id number] [address] [place] pH (Bld) 7.47 [pH] High 7.35-7.45 [facility] Comment on above: Order Comment: Speci men Type: ARTERIAL BLOOD SPECIMENOrdering Facility: [facility] Address: [address] [place] [address] Performed By: #### A LLBG ####[facility] LABORATORYCLIA [id number] [address] pH adjusted to patient's actual temperature (Bld) 7.46 High 7.35-7.45 [facility] Comment on above: Order Comment: Speci men Type: ARTERIAL BLOOD SPECIMENOrdering Facility: [facility] Address: [address] [place] [address] Performed By: #### A LLBG ####[facility] LABORATORYCLIA [id number] [address] [place] Potassium [Moles/Vol] 3.6 mmol/L Normal 3.5-5.0 [facility] Comment on above: Order Comment: Speci men Type: ARTERIAL BLOOD SPECIMENOrdering Facility: [facility] Address: [address] [place] [address] Performed By: #### A LLBG ####[facility] LABORATORYCLIA [id number] [address] [place] Sodium [Moles/Vol] 162 mmol/L High 136-144 [facility] Comment on above: Order Comment: Speci men Type: ARTERIAL BLOOD SPECIMENOrdering Facility: [facility] Address: [address] [place] [address] Performed By: #### A LLBG ####[facility] LABORATORYCLIA [id number] [place] [address] [place] Base excess Calc (Bld) [Moles/Vol] 4 mmol/L High 0-2 [facility] Comment on above: Order Comment: Speci men Type: ARTERIAL BLOOD SPECIMENOrdering Facility: [facility] Address: [address] [place] [address] Performed By: #### A LLBG ####[facility] LABORATORYCLIA [id number] [address] Body temperature 100.58 [degF] Normal [facility] Comment on above: Order Comment: Speci men Type: ARTERIAL BLOOD SPECIMENOrdering Facility: [facility] Address: [address] [place] [address] Performed By: #### A LLBG ####[facility] LABORATORYCLIA [id number] [address] [place] CALCIUM IONIZED, PH CORRECTED 1.34 mmol/L High 1.08-1.30 [facility] Comment on above: Order Comment: Speci men Type: ARTERIAL BLOOD SPECIMENOrdering Facility: [facility] Address: [address] [place] [address] Performed By: #### A LLBG ####[facility] LABORATORYCLIA [id number] [address] [place] Calcium.ionized (BldV) [Mass/Vol] 1.33 mmol/L High 1.08-1.30 [facility] Comment on above: Order Comment: Speci men Type: ARTERIAL BLOOD SPECIMENOrdering Facility: [facility] Address: [address] [place] [address] Performed By: #### A LLBG ####[facility] LABORATORYCLIA [id number] [address] Carboxyhemoglobin (BldA) [Mass fraction] 1.5 % Normal 0.0-2.0 [facility] Comment on above: Order Comment: Speci men Type: ARTERIAL BLOOD SPECIMENOrdering Facility: [facility] Address: [address] [place] [address] Result Comment: Carb oxyhemoglobin Reference Range for Smokers: 2.0-8.0% Performed By: #### A LLBG ####[facility]ORATORYCLIA [id number] [address] CO2 (Bld) [Partial pressure] 46 mm Hg Normal 36-46 [facility] Comment on above: Order Comment: Speci men Type: ARTERIAL BLOOD SPECIMENOrdering Facility: [facility] Address: [address] [place] [address] Performed By: #### A LLBG ####[facility]ORATORYCLIA [id number] [address] [place] CO2 [Moles/Vol] 26.4 mmol/L Normal 22-28 [facility] Comment on above: Order Comment: Speci men Type: ARTERIAL BLOOD SPECIMENOrdering Facility: [facility] Address: [address] [place] [address] Performed By: #### A LLBG ####[facility] LABORATORYCLIA [id number] [address] CO2 adjusted to patient's actual temperature (Bld) [Partial pressure] 48 mmHg High 36-46 [facility] Comment on above: Order Comment: Speci men Type: ARTERIAL BLOOD SPECIMENOrdering Facility: [facility] Address: [address] [place] [address] Performed By: #### A LLBG ####[facility] LABORATORYCLIA [id number] [address] [place] FIO2 100 % Normal [facility] Comment on above: Order Comment: Speci men Type: ARTERIAL BLOOD SPECIMENOrdering Facility: [facility] Address: [address] [place] [address] Performed By: #### A LLBG ####[facility]ATORYCLIA [id number] [address] [place] Glucose [Mass/Vol] 132 mg/dL High 60-105 [facility] Comment on above: Order Comment: Speci men Type: ARTERIAL BLOOD SPECIMENOrdering Facility: [facility] Address: [address] [place] [address] Performed By: #### A LLBG ####[facility]ORATORYCLIA [id number] [address] [place] HCO3 (Bld) [Moles/Vol] 29 mmol/L High 22-26 [facility] Comment on above: Order Comment: Speci men Type: ARTERIAL BLOOD SPECIMENOrdering Facility: [facility] Address: [address] [place] [address] Performed By: #### A LLBG ####[facility] LABORATORYCLIA [id number] [address] OF [facility] Hematocrit (Bld) [Volume fraction] 32.3 % Low 39.0-51.0 [facility] Comment on above: Order Comment: Speci men Type: ARTERIAL BLOOD SPECIMENOrdering Facility: [facility] Address: [address] [place] [address] Performed By: #### A LLBG ####[facility] LABORATORYCLIA [id number] [address] [place] Hemoglobin (Bld) [Mass/Vol] 10.4 g/dL Low 13.0-17.0 [facility] Comment on above: Order Comment: Speci men Type: ARTERIAL BLOOD SPECIMENOrdering Facility: [facility] Address: [address] [place] [address] Performed By: #### A LLBG ####[facility] LABORATORYCLIA [id number] [address] Methemoglobin (Bld) [Mass fraction] % Normal 0.0-1.5 [facility] Comment on above: Order Comment: Speci men Type: ARTERIAL BLOOD SPECIMENOrdering Facility: [facility] Address: [address] [place] [address] Performed By: #### A LLBG ####[facility] LABORATORYCLIA [id number] [address] O2 THERAPY NR=Non-Rebreather Mask Normal [facility] Comment on above: Order Comment: Speci men Type: ARTERIAL BLOOD SPECIMENOrdering Facility: [facility] Address: [address] [place] [address] Performed By: #### A LLBG ####[facility] LABORATORYCLIA [id number] [address] [place] Oxygen (Bld) [Partial pressure] 130 mm Hg High 85-95 [facility] Comment on above: Order Comment: Speci men Type: ARTERIAL BLOOD SPECIMENOrdering Facility: [facility] Address: [address] [place] [address] Performed By: #### A LLBG ####[facility] LABORATORYCLIA [id number] [address] OF [place] Oxygen adjusted to patient's actual temperature (Bld) [Partial pressure] 136 mmHg High 85-95 [facility] Comment on above: Order Comment: Speci men Type: ARTERIAL BLOOD SPECIMENOrdering Facility: [facility] Address: [address] [place] [address] Performed By: #### A LLBG ####[facility] LABORATORYCLIA [id number] [address] [place] OXYGEN SATURATION, ARTERIAL 99 % High 95-98 [facility] Comment on above: Order Comment: Speci men Type: ARTERIAL BLOOD SPECIMENOrdering Facility: [facility] Address: [address] [place] [address] Performed By: #### A LLBG ####[facility] LABORATORYCLIA [id number] [address] [place] Oxyhemoglobin (BldA) [Mass fraction] 97 % Normal 95-98 [facility] Comment on above: Order Comment: Speci men Type: ARTERIAL BLOOD SPECIMENOrdering Facility: [facility] Address: [address] [address] Performed By: #### A LLBG ####[facility] LABORATORYCLIA [id number] [address] [place] pH (Bld) 7.41 [pH] Normal 7.35-7.45 [facility] Comment on above: Order Comment: Speci men Type: ARTERIAL BLOOD SPECIMENOrdering Facility: [facility] Address: [address] [place] [address] Performed By: #### A LLBG ####[facility] LABORATORYCLIA [id number] [address] STATES [facility] pH adjusted to patient's actual temperature (Bld) 7.40 Normal 7.35-7.45 [facility] Comment on above: Order Comment: Speci men Type: ARTERIAL BLOOD SPECIMENOrdering Facility: [facility] Address: [address] [place] [address] Performed By: #### A LLBG ####[facility] LABORATORYCLIA [id number] [address] OF [facility] Potassium [Moles/Vol] 3.8 mmol/L Normal 3.5-5.0 [facility] Comment on above: Order Comment: Speci men Type: ARTERIAL BLOOD SPECIMENOrdering Facility: [facility] Address: [address] [place] [address] Performed By: #### A LLBG ####[facility] LABORATORYCLIA [id number] [address] STATES [facility] Sodium [Moles/Vol] 166 mmol/L High 136-144 [facility] Comment on above: Order Comment: Speci men Type: ARTERIAL BLOOD SPECIMENOrdering Facility: [facility] Address: [address] [place] [address] Performed By: #### A LLBG ####[facility] LABORATORYCLIA [id number] [address] [place] Bacteria Bld Culton 06-15-19 22 Bacteria identified Cx Nom (Bld) CULTURE, BLOOD: No growth 5 days Normal [facility] Comment on above: Performed By: #### 6 00-7 ####[facility] LABORATORYCLIA [id number] [address] [place] Basic metabolic 2000 panelon 06-15-2021 Anion gap [Moles/Vol] 9 mmol/L Normal 9-18 [facility] Comment on above: Order Comment: Speci men Type: BLOOD SPECIMEN Performed By: #### 2 4321-2, 2776-05, ####[facility] LABORATORYCLIA [id number] [place], [place] [id number] [place] [address] [place] [facility] Calcium [Mass/Vol] 9.0 mg/dL Normal 8.5-10.2 [facility] Comment on above: Order Comment: Speci men Type: BLOOD SPECIMEN Performed By: #### 2 4321-2, 2776-05, ####[facility] LABORATORYCLIA [id number] [place], [place] [address] [place] [address] [place] Chloride [Moles/Vol] 125 mmol/L High 97-105 [facility] Comment on above: Order Comment: Speci men Type: BLOOD SPECIMEN Performed By: #### 2 4321-2, 2776-05, ####[facility] LABORATORYCLIA [id number] [address] [place] CO2 [Moles/Vol] 29 mmol/L Normal 22-30 [facility] Comment on above: Order Comment: Speci men Type: BLOOD SPECIMEN Performed By: #### 2 4321-2, 2776-05, ####[facility] LABORATORYCLIA [id number] [address] [place] Creatinine [Mass/Vol] 0.81 mg/dL Normal 0.73-1.22 [facility] Comment on above: Order Comment: Speci men Type: BLOOD SPECIMEN Performed By: #### 2 4321-2, 2776-05, ####[facility] LABORATORYCLIA [id number] [place] [address] [place] GFR/1.73 sq M.predicted [...] #### 2 4321-2, 2776-05, ####[facility] LABORATORYCLIA [id number] [place] [address] [place] Glucose [Mass/Vol] 124 mg/dL High 74-99 [facility] Comment on above: Order Comment: Speci men Type: BLOOD SPECIMEN Result Comment: The [place] [employer] (ADA) provides guidance for cutoff [...] Standards of Medical Care in Diabetes 2016, [place] [employer]. Diabetes Care. 2016.39(Suppl 1). Performed By: #### 2 4321-2, 2776-05, ####[facility] LABORATORYCLIA [id number] [address] [place] Potassium [Moles/Vol] 3.8 mmol/L Normal 3.7-5.1 [facility] Comment on above: Order Comment: Speci men Type: BLOOD SPECIMEN Performed By: #### 2 4321-2, 2776-05, ####[facility] LABORATORYCLIA [id number] [address] [place] Sodium [Moles/Vol] 163 mmol/L High 136-144 [facility] Comment on above: Order Comment: Speci men Type: BLOOD SPECIMEN Performed By: #### 2 4321-2, 2776-1, ####[facility] LABORATORYCLIA [id number] [address] Urea nitrogen [Mass/Vol] 35 mg/dL High 9-24 [facility] Comment on above: Order Comment: Speci men Type: BLOOD SPECIMEN Performed By: #### 2 4321-2, 2776-, ####[facility] LABORATORYCLIA [id number] [address] CBC panel Auto (Bld)on 06-15 Erythrocyte distribution width (RBC) [Ratio] 16.3 % High 11.5-15.0 [facility] Comment on above: Order Comment: Speci men Type: BLOOD SPECIMENOrdering Facility: [facility] Address: [address] [place] [address] Performed By: #### 5 8410-2 ####[facility] LABORATORYCLIA [id number] [address] Hematocrit (Bld) [Volume fraction] 30.0 % Low 39.0-51.0 [facility] Comment on above: Order Comment: Speci men Type: BLOOD SPECIMENOrdering Facility: [facility] Address: [address] [place] [address] Performed By: #### 5 8410-2 ####[facility] LABORATORYCLIA [id number] [address] Hemoglobin (Bld) [Mass/Vol] 8.9 g/dL Low 13.0-17.0 [facility] Comment on above: Order Comment: Speci men Type: BLOOD SPECIMENOrdering Facility: [facility] Address: [address] [place] [address] Performed By: #### 5 8410-2 ####[facility] LABORATORYCLIA [id number] [address] MCH (RBC) [Entitic mass] 28.7 pg Normal 26.0-34.0 [facility] Comment on above: Order Comment: Speci men Type: BLOOD SPECIMENOrdering Facility: [facility] Address: [address] [place] [address] Performed By: #### 5 8410-2 ####[facility] LABORATORYCLIA [id number] [address] MCHC (RBC) [Mass/Vol] 29.7 g/dL Low 30.5-36.0 [facility] Comment on above: Order Comment: Speci men Type: BLOOD SPECIMENOrdering Facility: [facility] Address: [address] [place] [address] Performed By: #### 5 8410-2 ####[facility] LABORATORYCLIA [id number] [address] STATES [facility] MCV (RBC) [Entitic vol] 96.8 fL Normal 80.0-100.0 [facility] Comment on above: Order Comment: Speci men Type: BLOOD SPECIMENOrdering Facility: [facility] Address: [address] [place] [address] Performed By: #### 5 8410-2 ####[facility] LABORATORYCLIA [id number] [address] Nucleated RBC (Bld) [#/Vol] 10*3/uL Normal <0.01 [facility] Comment on above: Order Comment: Speci men Type: BLOOD SPECIMENOrdering Facility: [facility] Address: [address] [place] [address] Performed By: #### 5 8410-2 ####[facility] LABORATORYCLIA [id number] [address] Platelet mean volume (Bld) [Entitic vol] 12.3 fL Normal 9.0-12.7 [facility] Comment on above: Order Comment: Speci men Type: BLOOD SPECIMENOrdering Facility: [facility] Address: [address] [place] [address] Performed By: #### 5 8410-2 ####[facility] LABORATORYCLIA [id number] [address] [place] Platelets (Bld) [#/Vol] 226 10*3/uL Normal 150-400 [facility] Comment on above: Order Comment: Speci men Type: BLOOD SPECIMENOrdering Facility: [facility] Address: [address] [place] [address] Performed By: #### 5 8410-2 ####[facility] LABORATORYCLIA [id number] [address] OF [facility] RBC (Bld) [#/Vol] 3.10 10*6/uL Low 4.20-6.00 [facility] Comment on above: Order Comment: Speci men Type: BLOOD SPECIMENOrdering Facility: [facility] Address: [address] [place] [address] Performed By: #### 5 8410-2 ####[facility] LABORATORYCLIA [id number] [address] WBC (Bld) [#/Vol] 10.77 10*3/uL Normal 3.70-11.00 [facility] Comment on above: Order Comment: Speci men Type: BLOOD SPECIMENOrdering Facility: [facility] Address: [address] [place] [address] Performed By: #### 5 8410-2 ####[facility] LABORATORYCLIA [id number] [address] Erythrocyte distribution width (RBC) [Ratio] 16.2 % High 11.5-15.0 [facility] Comment on above: Order Comment: Speci men Type: BLOOD SPECIMENOrdering Facility: [facility] Address: [address] [place] [address] Performed By: #### 5 8410-2 ####[facility] LABORATORYCLIA [id number] [address] OF [facility] Hematocrit (Bld) [Volume fraction] 34.8 % Low 39.0-51.0 [facility] Comment on above: Order Comment: Speci men Type: BLOOD SPECIMENOrdering Facility: [facility] Address: [address] [place] [address] Performed By: #### 5 8410-2 ####[facility] LABORATORYCLIA [id number] [address] STATES OF [facility] Hemoglobin (Bld) [Mass/Vol] 10.0 g/dL Low 13.0-17.0 [facility] Comment on above: Order Comment: Speci men Type: BLOOD SPECIMENOrdering Facility: [facility] Address: [address] [place] [address] Performed By: #### 5 8410-2 ####[facility] LABORATORYCLIA [id number] [address] STATES OF [facility] MCH (RBC) [Entitic mass] 27.5 pg Normal 26.0-34.0 [facility] Comment on above: Order Comment: Speci men Type: BLOOD SPECIMENOrdering Facility: [facility] Address: [address] [place] [address] Performed By: #### 5 8410-2 ####[facility] LABORATORYCLIA [id number] [address] OF [facility] MCHC (RBC) [Mass/Vol] 28.7 g/dL Low 30.5-36.0 [facility] Comment on above: Order Comment: Speci men Type: BLOOD SPECIMENOrdering Facility: [facility] Address: [address] [place] [address] Performed By: #### 5 8410-2 ####[facility] LABORATORYCLIA [id number] [address] [place] MCV (RBC) [Entitic vol] 95.6 fL Normal 80.0-100.0 [facility] Comment on above: Order Comment: Speci men Type: BLOOD SPECIMENOrdering Facility: [facility] Address: [address] [place] [address] Performed By: #### 5 8410-2 ####[facility] LABORATORYCLIA [id number] [address] [place] Nucleated RBC (Bld) [#/Vol] 10*3/uL Normal <0.01 [facility] Comment on above: Order Comment: Speci men Type: BLOOD SPECIMENOrdering Facility: [facility] Address: [address] [place] [address] Performed By: #### 5 8410-2 ####[facility] LABORATORYCLIA [id number] [address] [place] Platelet mean volume (Bld) [Entitic vol] 11.9 fL Normal 9.0-12.7 [facility] Comment on above: Order Comment: Speci men Type: BLOOD SPECIMENOrdering Facility: [facility] Address: [address] [place] [address] Performed By: #### 5 8410-2 ####[facility] LABORATORYCLIA [id number] [address] [place] Platelets (Bld) [#/Vol] 246 10*3/uL Normal 150-400 [facility] Comment on above: Order Comment: Speci men Type: BLOOD SPECIMENOrdering Facility: [facility] Address: [address] [place] [address] Performed By: #### 5 8410-2 ####[facility] LABORATORYCLIA [id number] [address] [place] RBC (Bld) [#/Vol] 3.64 10*6/uL Low 4.20-6.00 [facility] Comment on above: Order Comment: Speci men Type: BLOOD SPECIMENOrdering Facility: [facility] Address: [address] [place] [address] Performed By: #### 5 8410-2 ####[facility] LABORATORYCLIA [id number] [address] [place] WBC (Bld) [#/Vol] 11.45 10*3/uL High 3.70-11.00 [facility] Comment on above: Order Comment: Speci men Type: BLOOD SPECIMENOrdering Facility: [facility] Address: [address] [place] [address] Performed By: #### 5 8410-2 ####[facility] LABORATORYCLIA [id number] [address] Erythrocyte distribution width (RBC) [Ratio] 15.9 % High 11.5-15.0 [facility] Comment on above: Order Comment: Speci men Type: BLOOD SPECIMEN Performed By: #### 5 8410-2 ####[facility] LABORATORYCLIA [id number] [address] Hematocrit (Bld) [Volume fraction] 35.8 % Low 39.0-51.0 [facility] Comment on above: Order Comment: Speci men Type: BLOOD SPECIMEN Performed By: #### 5 8410-2 ####[facility] LABORATORYCLIA [id number] [address] Hemoglobin (Bld) [Mass/Vol] 10.4 g/dL Low 13.0-17.0 [facility] Comment on above: Order Comment: Speci men Type: BLOOD SPECIMEN Performed By: #### 5 8410-2 ####[facility] LABORATORYCLIA [id number] [address] MCH (RBC) [Entitic mass] 28.0 pg Normal 26.0-34.0 [facility] Comment on above: Order Comment: Speci men Type: BLOOD SPECIMEN Performed By: #### 5 8410-2 ####[facility] LABORATORYCLIA [id number] [address] MCHC (RBC) [Mass/Vol] 29.1 g/dL Low 30.5-36.0 [facility] Comment on above: Order Comment: Speci men Type: BLOOD SPECIMEN Performed By: #### 5 8410-2 ####[facility] LABORATORYCLIA [id number] [address] MCV (RBC) [Entitic vol] 96.2 fL Normal 80.0-100.0 [facility] Comment on above: Order Comment: Speci men Type: BLOOD SPECIMEN Performed By: #### 5 8410-2 ####[facility] LABORATORYCLIA [id number] [address] Nucleated RBC (Bld) [#/Vol] 10*3/uL Normal <0.01 [facility] Comment on above: Order Comment: Speci men Type: BLOOD SPECIMEN Performed By: #### 5 8410-2 ####[facility] LABORATORYCLIA [id number] [address] Platelet mean volume (Bld) [Entitic vol] 11.6 fL Normal 9.0-12.7 [facility] Comment on above: Order Comment: Speci men Type: BLOOD SPECIMEN Performed By: #### 5 8410-2 ####[facility] LABORATORYCLIA [id number] [address] Platelets (Bld) [#/Vol] 265 10*3/uL Normal 150-400 [facility] Comment on above: Order Comment: Speci men Type: BLOOD SPECIMEN Performed By: #### 5 8410-2 ####[facility] LABORATORYCLIA [id number] [address] RBC (Bld) [#/Vol] 3.72 10*6/uL Low 4.20-6.00 [facility] Comment on above: Order Comment: Speci men Type: BLOOD SPECIMEN Performed By: #### 5 8410-2 ####[facility] LABORATORYCLIA [id number] [address] WBC (Bld) [#/Vol] 12.24 10*3/uL High 3.70-11.00 [facility] Comment on above: Order Comment: Speci men Type: BLOOD SPECIMEN Performed By: #### 5 8410-2 ####[facility] LABORATORYCLIA [id number] [address] CONSULTon 06-15-2021 CONSULT Normal [facility] [...] Comment: Speci men Type: URINE SPECIMENOrdering Facility: [facility] Address: [address] [place] [address] Performed By: #### U TPR, 33120-6, 87753-2, 50729-0 ####[facility] LABORATORYCLIA [id number] [address] Comprehensive metabolic 2000 panelon 06-15-2021 Albumin [Mass/Vol] 2.8 g/dL Low 3.9-4.9 [facility] Comment on above: Order Comment: Speci men Type: BLOOD SPECIMENOrdering Facility: [facility] Address: [address] [place] [address] Performed By: #### 2 4323-8 ####[facility] LABORATORYCLIA [id number] [address] ALP [Catalytic activity/Vol] 74 U/L Normal 38-113 [facility] Comment on above: Order Comment: Speci men Type: BLOOD SPECIMENOrdering Facility: [facility] Address: [address] [address] Performed By: #### 2 4323-8 ####[facility] LABORATORYCLIA [id number] [address] ALT With P-5'-P [Catalytic activity/Vol] 50 U/L Normal 10-54 [facility] Comment on above: Order Comment: Speci men Type: BLOOD SPECIMENOrdering Facility: [facility] Address: [address] [place] [address] Performed By: #### 2 4323-8 ####[facility]ORATORYCLIA [id number] [place] [address] [place] Anion gap [Moles/Vol] 12 mmol/L Normal 9-18 [facility] Comment on above: Order Comment: Speci men Type: BLOOD SPECIMENOrdering Facility: [facility] Address: [address] [place] [address] Performed By: #### 2 4323-8 ####[facility] LABORATORYCLIA [id number] [place] [address] [place] AST With P-5'-P [Catalytic activity/Vol] 36 U/L Normal 14-40 [facility] Comment on above: Order Comment: Speci men Type: BLOOD SPECIMENOrdering Facility: [facility] Address: [address] [place] [address] Performed By: #### 2 4323-8 ####[facility] LABORATORYCLIA [id number] [address] [place] Bilirubin [Mass/Vol] 0.5 mg/dL Normal 0.2-1.3 [facility] Comment on above: Order Comment: Speci men Type: BLOOD SPECIMENOrdering Facility: [facility] Address: [address] [place] [address] Performed By: #### 2 4323-8 ####[facility] LABORATORYCLIA [id number] [address] [place] Calcium [Mass/Vol] 8.8 mg/dL Normal 8.5-10.2 [facility] Comment on above: Order Comment: Speci men Type: BLOOD SPECIMENOrdering Facility: [facility] Address: [address] [place] [address] Performed By: #### 2 4323-8 ####[facility] LABORATORYCLIA [id number] [place] [address] [place] Chloride [Moles/Vol] 126 mmol/L High 97-105 [facility] Comment on above: Order Comment: Speci men Type: BLOOD SPECIMENOrdering Facility: [facility] Address: [address] [place] [address] Performed By: #### 2 4323-8 ####[facility] LABORATORYCLIA [id number] [address] [place] CO2 [Moles/Vol] 24 mmol/L Normal 22-30 [facility] Comment on above: Order Comment: Speci men Type: BLOOD SPECIMENOrdering Facility: [facility] Address: [address] [place] [address] Performed By: #### 2 4323-8 ####[facility] LABORATORYCLIA [id number] [place] [address] [place] Creatinine [Mass/Vol] 0.84 mg/dL Normal 0.73-1.22 [facility] Comment on above: Order Comment: Speci men Type: BLOOD SPECIMENOrdering Facility: [facility] Address: [address] [place] [address] Performed By: #### 2 4323-8 ####[facility] LABORATORYCLIA [id number] [place] [address] [place] GFR/1.73 sq M.predicted MDRD (S/P/Bld) [Vol rate/Area] mL/min/{1.73_m2} Normal [facility] Comment on above: Order Comment: Speci men Type: BLOOD SPECIMENOrdering Facility: [facility] Address: [address] [place] [address] Result Comment: >60e GFR (Estimated GFR) Units [...] By: #### 2 4323-8 ####[facility] LABORATORYCLIA [id number] [place] [address] [place] Glucose [Mass/Vol] 142 mg/dL High 74-99 [facility] Comment on above: Order Comment: Shira men Type: BLOOD SPECIMENOrdering Facility: [facility] Address: [address] [place] [address] Result Comment: [employer] (ADA) provides guidance for cutoff [...] Standards of Medical Care in Diabetes 2016, [place] [employer]. Diabetes Care. 2016.39(Suppl 1). Performed By: #### 2 4323-8 ####[facility] LABORATORYCLIA [id number] [place] [address] [place] Potassium [Moles/Vol] 3.8 mmol/L Normal 3.7-5.1 [facility] Comment on above: Order Comment: Shira feldman Type: BLOOD SPECIMENOrdering Facility: [facility] Address: [address] [place] [address] Performed By: #### 2 4323-8 ####[facility] LABORATORYCLIA [id number] [place] [address] [place] Protein [Mass/Vol] 6.1 g/dL Low 6.3-8.0 [facility] Comment on above: Order Comment: Johni men Type: BLOOD SPECIMENOrdering Facility: [facility] Address: [address] [place] [address] Performed By: #### 2 4323-8 ####[facility] LABORATORYCLIA [id number] [place] [address] [place] Sodium [Moles/Vol] 162 mmol/L High 136-144 [facility] Comment on above: Order Comment: Speci men Type: BLOOD SPECIMENOrdering Facility: [facility] Address: [address] [place] [address] Performed By: #### 2 4323-8 ####[facility] LABORATORYCLIA [id number] [place] [address] [place] Urea nitrogen [Mass/Vol] 33 mg/dL High 9-24 [facility] Comment on above: Order Comment: Speci men Type: BLOOD SPECIMENOrdering Facility: [facility] Address: [address] [place] [address] Performed By: #### 2 4323-8 ####[facility] LABORATORYCLIA [id number] [place] [address] [place] Creatinine Unsp time (U) [Ma ss/Vol]on 06-15-2021 Creatinine (U) [Mass/Vol] 87.0 mg/dL Normal 46.8-314.5 [facility] Comment on above: Order Comment: Speci men Type: URINE SPECIMENOrdering Facility: [facility] Address: [address] [place] [address] Performed By: #### U TPR, 84887-3, 46653-0, 44130-3 ####[facility] LABORATORYCLIA [id number] [place] [address] [place] HIGH SENSITIVITY TROPONIN To n 06-15-2021 HIGH SENSITIVITY TAMIKO 23 ng/L High <12 [facility] Comment on above: Order Comment: Speci men Type: BLOOD SPECIMENOrdering Facility: [facility] Address: [address] [place] [address] Result Comment: When assessing risk for acute [...] Performed By: #### P Chelo WHITAKER62-6, HSTNT ####[facility]IA [id number] [address] STATES OF [facility] Lactate (Bld) [Moles/Vol]on 06-15-2021 Lactate [Moles/Vol] 0.8 mmol/L Normal 0.5-2.2 [facility] Comment on above: Order Comment: Speci men Type: BLOOD SPECIMENOrdering Facility: [facility] Address: [address] [place] [address] Performed By: #### 3 2693-4 ####[facility]IA [id number] [address] [place] Magnesium [facility] Magnesium [Mass/Vol] 3.0 mg/dL High 1.7-2.3 [facility] Comment on above: Order Comment: Speci men Type: BLOOD SPECIMEN Performed By: #### 2 4321-2, 2777-1, 00076-3 ####[facility]IA [id number] [address] [place] NT-proBNP [facility] 06-15 Natriuretic peptide.B prohormone N-Terminal [Mass/Vol] 265 pg/mL High <125 [facility] Comment on above: Order Comment: Speci men Type: BLOOD SPECIMENOrdering Facility: [facility] Address: [address] [place] [address] Performed By: #### P JULIANNE, 37097-1, HSTNT ####[facility] LABORATORYCLIA [id number] [place] [address] [place] Osmolality Uron 06-15-2021 Osmolality (U) [Osmolality] 606 mosm/kg Normal 50-1,200 [facility] Comment on above: Order Comment: Speci men Type: URINE SPECIMENOrdering Facility: [facility] Address: [address] [place] [address] Performed By: #### 2 695-5 ####[facility]ITALCLIA [id number] [address] PROCALCITONIN (LAB)on 2021 Procalcitonin [Mass/Vol] 0.21 ng/mL High <0.09 [facility] Comment on above: Order Comment: Speci men Type: BLOOD SPECIMENOrdering Facility: [facility] Address: [address] [place] [address] Result Comment: For a guided interpretation of test results, please visit the Change in Procalcitonin Calculator, [email or web address]. Performed By: #### P JULIANNE, 2951-2 ####[facility] LABORATORYIA [id number] [address] Procalcitonin [Mass/Vol] 0.17 ng/mL High <0.09 [facility] Comment on above: Order Comment: Speci men Type: BLOOD SPECIMENOrdering Facility: [facility] Address: [address] [place] [address] Result Comment: For a guided interpretation of test results, please visit the Change in Procalcitonin Calculator, [email or web address]. Performed By: #### P JULIANNE, 49273-2, HSTNT ####[facility]IA [id number] [address] PROTEIN RANDOM URon 06-15-19 22 Protein (U) [Mass/Vol] 175 mg/dL High 0-20 [facility] Comment on above: Order Comment: Speci men Type: URINE SPECIMENOrdering Facility: [facility] Address: [address] [place] [address] Performed By: #### U TPR, 05119-2, 31572-6, 64233-3 ####[facility] LABORATORYCLIA [id number] [address] PT panel Coag (PPP)on 2021 INR Coag (PPP) [Relative time] 1.1 {INR} Normal <1.4 [facility] Comment on above: Order Comment: Speci men Type: BLOOD SPECIMENOrdering Facility: [facility] Address: [address] [place] [address] Result Comment: Yris min K Antagonist (VKA) Therapeutic Range: INR 2 to 3 (Target INR of 2.5)Note: For patients treated with VKA drugs, such as warfarin, the [place] [employer] 2012 Guideline recommends [...] al. Chest 2012, 141:7S-47SNishmariangel RA, et al. [facility] 2017, 70: 252-289 Performed By: #### 3 4528-0, 08609-0 ####[facility] LABORATORYCLIA [id number] [place] [address] [place] PT Coag (PPP) [Time] 11.4 s Normal <13.1 [facility] Comment on above: Order Comment: Shira feldman Type: BLOOD SPECIMENOrdering Facility: [facility] Address: [address] [place], [place] [id number] Performed By: #### 3 4528-0, 65379-2 ####[facility]ORATORYCLIA [id number] [place] [address] [place] Phosphate SerPl-mCncon 06-15 Phosphate [Mass/Vol] 2.6 mg/dL Low 2.7-4.8 [facility] Comment on above: Order Comment: Shira feldman Type: BLOOD SPECIMEN Performed By: #### 2 4321-2, 2777-1, 56695-8 ####[facility]ORATORYCLIA [id number] [address] [place] Sodium ?Tm Ur-sCncon 022 Sodium Unsp time (U) [Moles/Vol] 34 mmol/L Normal 14-216 [facility] Comment on above: Order Comment: Speci men Type: URINE SPECIMENOrdering Facility: [facility] Address: [address] [place] [address] Performed By: #### U TPR, 54774-3, 26483-7, 18792-3 ####[facility]ORATORYCLIA [id number] [address] STATES [place] Sodium SerPl-sCncon 06-15-19 22 Sodium [Moles/Vol] 159 mmol/L High 136-144 [facility] Comment on above: Order Comment: Speci men Type: BLOOD SPECIMENOrdering Facility: [facility] Address: [address] [place] [address] Performed By: #### P JULIANNE, 2951-2 ####[facility]ORATORYCLIA [id number] [address] THERAPY NTon 06-15-2021 THERAPY NT Normal [facility] Urinalysis complete panel (U )on 06-15-2021 Bacteria LM.HPF (Urine sed) [#/Area] None Seen Normal None Seen [facility] Comment on above: Order Comment: Speci men Type: URINE SPECIMENOrdering Facility: [facility] Address: [address] [place] [address] Performed By: #### 2 4356-8 ####[facility]ORATORYCLIA [id number] [address] STATES [place] Bilirubin Ql (U) Negative Normal Negative [facility] Comment on above: Order Comment: Speci men Type: URINE SPECIMENOrdering Facility: [facility] Address: [address] [place] [address] Performed By: #### 2 4356-8 ####[facility]ORATORYCLIA [id number] [address] STATES [place] Clarity (Unsp spec) Cloudy Abnormal Clear [facility] Comment on above: Order Comment: Speci men Type: URINE SPECIMENOrdering Facility: [facility] Address: [address] [place] [address] Performed By: #### 2 4356-8 ####[facility]ORATORYCLIA [id number] [address] Color (U) Yellow Normal Yellow [facility] Comment on above: Order Comment: Speci men Type: URINE SPECIMENOrdering Facility: [facility] Address: [address] [place] [address] Performed By: #### 2 4356-8 ####[facility]ORATORYCLIA [id number] [address] Epithelial cells LM.HPF (Urine sed) [#/Area] 7.1 /[HPF] Normal [facility] Comment on above: Order Comment: Speci men Type: URINE SPECIMENOrdering Facility: [facility] Address: [address] [place] [address] Performed By: #### 2 4356-8 ####[facility]ORATORYCLIA [id number] [address] Glucose Test strip (U) [Mass/Vol] Negative Normal Negative [facility] Comment on above: Order Comment: Speci men Type: URINE SPECIMENOrdering Facility: [facility] Address: [address] [place] [address] Performed By: #### 2 4356-8 ####[facility]ORATORYCLIA [id number] [address] Granular casts (Urine sed) [#/Area] /[LPF] Abnormal 0 /LPF [facility] Comment on above: Order Comment: Speci men Type: URINE SPECIMENOrdering Facility: [facility] Address: [address] [place] [address] Performed By: #### 2 4356-8 ####[facility]ORATORYCLIA [id number] [address] Hemoglobin Ql (U) Moderate Abnormal Negative [facility] Comment on above: Order Comment: Speci men Type: URINE SPECIMENOrdering Facility: [facility] Address: [address] [place] [address] Performed By: #### 2 4356-8 ####[facility] LABORATORYCLIA [id number] [address] OF [facility] Hyaline casts (Urine sed) [#/Area] /[LPF] Abnormal 0 /LPF [facility] Comment on above: Order Comment: Speci men Type: URINE SPECIMENOrdering Facility: [facility] Address: [address] [place] [address] Performed By: #### 2 4356-8 ####[facility]ORATORYCLIA [id number] [address] Ketones Ql (U) Negative Normal Negative [facility] Comment on above: Order Comment: Speci men Type: URINE SPECIMENOrdering Facility: [facility] Address: [address] [place] [address] Performed By: #### 2 4356-8 ####[facility]ORATORYCLIA [id number] [address] Leukocyte esterase Test strip Ql (U) Negative Normal Negative [facility] Comment on above: Order Comment: Speci men Type: URINE SPECIMENOrdering Facility: [facility] Address: [address] [place] [address] Performed By: #### 2 4356-8 ####[facility]ATORYCLIA [id number] [address] Nitrite Ql (U) Negative Normal Negative [facility] Comment on above: Order Comment: Speci men Type: URINE SPECIMENOrdering Facility: [facility] Address: [address] [place] [address] Performed By: #### 2 4356-8 ####[facility]ORATORYCLIA [id number] [address] [place] pH (U) 6.0 [pH] Normal 5.0-8.0 [facility] Comment on above: Order Comment: Speci men Type: URINE SPECIMENOrdering Facility: [facility] Address: [address] [place] [address] Performed By: #### 2 4356-8 ####[facility]ORATORYCLIA [id number] [address] Protein (U) [Mass/Vol] 100 mg/dL Abnormal Negative [facility] Comment on above: Order Comment: Speci men Type: URINE SPECIMENOrdering Facility: [facility] Address: [address] [place] [address] Performed By: #### 2 4356-8 ####[facility]ORATORYCLIA [id number] [address] [place] RBC LM.HPF (Urine sed) [#/Area] 0-3 /HPF Normal 0-3 /HPF [facility] Comment on above: Order Comment: Speci men Type: URINE SPECIMENOrdering Facility: [facility] Address: [address] [place] [address] Performed By: #### 2 4356-8 ####[facility]ORATORYCLIA [id number] [address] Specific gravity (U) [Rel density] 1.024 Normal 1.005-1.030 [facility] Comment on above: Order Comment: Speci men Type: URINE SPECIMENOrdering Facility: [facility] Address: [address] [place] [address] Performed By: #### 2 4356-8 ####[facility]ORATORYCLIA [id number] [address] Urobilinogen Ql (U) 0.2 EU/dL Normal 0.2-1.0 EU/dL [facility] Comment on above: Order Comment: Speci men Type: URINE SPECIMENOrdering Facility: [facility] Address: [address] [place] [address] Performed By: #### 2 4356-8 ####[facility]ORATORYCLIA [id number] [place] [address] [place] WBC LM.HPF (Urine sed) [#/Area] 0-5 /HPF Normal 0-5 /HPF [facility] Comment on above: Order Comment: Speci men Type: URINE SPECIMENOrdering Facility: [facility] Address: [address] [place] [address] Performed By: #### 2 4356-8 ####[facility]ORATORYCLIA [id number] [address] [place] XR CHEST 1V FRONTALon 2021 XR CHEST 1V FRONTAL Normal [facility] XR CHEST 1V FRONTAL PORTon 0 06-15-2021 XR CHEST 1V FRONTAL PORT Normal [facility] XR CHEST 1V FRONTAL PORT Normal [facility] aPTT PPPon 06-15-2021 aPTT Coag (PPP) [Time] 30.9 s Normal 23.0-32.4 [facility] Comment on above: Order Comment: Speci men Type: BLOOD SPECIMENOrdering Facility: [facility] Address: [address] [place] [address] Performed By: #### 3 4528-0, 17376-0 ####[facility]ORATORYCLIA [id number] [place] [address] [place] Basic metabolic 2000 panelon 06-14-2021 Anion gap [Moles/Vol] 8 mmol/L Low 9-18 [facility] Comment on above: Order Comment: Speci men Type: BLOOD SPECIMEN Performed By: #### 2 4321-2, 2776-1, ####[facility]ORATORYCLIA [id number] [place] [address] [place] Calcium [Mass/Vol] 8.9 mg/dL Normal 8.5-10.2 [facility] Comment on above: Order Comment: Speci men Type: BLOOD SPECIMEN Performed By: #### 2 4321-2, 2777-1, ####[facility]ORATORYCLIA [id number] [place], [place] [address] [place] [address] [place] Chloride [Moles/Vol] 121 mmol/L High 97-105 [facility] Comment on above: Order Comment: Speci men Type: BLOOD SPECIMEN Performed By: #### 2 4321-2, 2776-05, ####[facility]ORATORYCLIA [id number] [place] [address] [place] CO2 [Moles/Vol] 30 mmol/L Normal 22-30 [facility] Comment on above: Order Comment: Speci men Type: BLOOD SPECIMEN Performed By: #### 2 4321-2, 2776-05, ####[facility]IA [id number] [address] STATES OF [facility] Creatinine [Mass/Vol] 0.78 mg/dL Normal 0.73-1.22 [facility] Comment on above: Order Comment: Speci men Type: BLOOD SPECIMEN Performed By: #### 2 4321-2, 2776-05, ####[facility]ORATORYCLIA [id number] [place] [address] [place] GFR/1.73 sq M.predicted [...] #### 2 4321-2, 2777, ####[facility]ATORYCLIA [id number] [place] [address] [place] Glucose [Mass/Vol] 132 mg/dL High 74-99 [facility] Comment on above: Order Comment: Speci men Type: BLOOD SPECIMEN Result Comment: The [place] [employer] (ADA) provides guidance for cutoff [...] Standards of Medical Care in Diabetes 2016, [place] [employer]. Diabetes Care. 2016.39(Suppl 1). Performed By: #### 2 4321-2, 2776-05, ####[facility]ORYCLIA [id number] [address] [place] Potassium [Moles/Vol] 3.7 mmol/L Normal 3.7-5.1 [facility] Comment on above: Order Comment: Speci men Type: BLOOD SPECIMEN Performed By: #### 2 4321-2, 2776-05, ####[facility]ORYCLIA [id number] [address] [place] Sodium [Moles/Vol] 159 mmol/L High 136-144 [facility] Comment on above: Order Comment: Speci men Type: BLOOD SPECIMEN Performed By: #### 2 4321-2, 2776-05, ####[facility]ORYCLIA [id number] [place] [address] [place] Urea nitrogen [Mass/Vol] 35 mg/dL High 9-24 [facility] Comment on above: Order Comment: Speci men Type: BLOOD SPECIMEN Performed By: #### 2 4321-2, 2776-05, ####[facility]ORYCLIA [id number] [address] CASE MANAGEMon 06-14-2021 CASE MANAGEM Normal [facility] CBC panel Auto (Bld)on 06-14 Erythrocyte distribution width (RBC) [Ratio] 16.2 % High 11.5-15.0 [facility] Comment on above: Order Comment: Speci men Type: BLOOD SPECIMEN Performed By: #### 5 8410-2 ####[facility]ORYCLIA [id number] [address] Hematocrit (Bld) [Volume fraction] 35.2 % Low 39.0-51.0 [facility] Comment on above: Order Comment: Speci men Type: BLOOD SPECIMEN Performed By: #### 5 8410-2 ####[facility]ORYCLIA [id number] [address] Hemoglobin (Bld) [Mass/Vol] 10.1 g/dL Low 13.0-17.0 [facility] Comment on above: Order Comment: Speci men Type: BLOOD SPECIMEN Performed By: #### 5 8410-2 ####[facility]ATORYCLIA [id number] [address] MCH (RBC) [Entitic mass] 27.2 pg Normal 26.0-34.0 [facility] Comment on above: Order Comment: Speci men Type: BLOOD SPECIMEN Performed By: #### 5 8410-2 ####[facility]ORYCLIA [id number] [address] MCHC (RBC) [Mass/Vol] 28.7 g/dL Low 30.5-36.0 [facility] Comment on above: Order Comment: Speci men Type: BLOOD SPECIMEN Performed By: #### 5 8410-2 ####[facility]ORYCLIA [id number] [address] MCV (RBC) [Entitic vol] 94.6 fL Normal 80.0-100.0 [facility] Comment on above: Order Comment: Speci men Type: BLOOD SPECIMEN Performed By: #### 5 8410-2 ####[facility]ATORYCLIA [id number] [address] Nucleated RBC (Bld) [#/Vol] 10*3/uL Normal <0.01 [facility] Comment on above: Order Comment: Speci men Type: BLOOD SPECIMEN Performed By: #### 5 8410-2 ####[facility]ORYCLIA [id number] [address] Platelet mean volume (Bld) [Entitic vol] 11.0 fL Normal 9.0-12.7 [facility] Comment on above: Order Comment: Speci men Type: BLOOD SPECIMEN Performed By: #### 5 8410-2 ####[facility]ORYCLIA [id number] [address] Platelets (Bld) [#/Vol] 287 10*3/uL Normal 150-400 [facility] Comment on above: Order Comment: Speci men Type: BLOOD SPECIMEN Performed By: #### 5 8410-2 ####[facility]ORYCLIA [id number] [address] RBC (Bld) [#/Vol] 3.72 10*6/uL Low 4.20-6.00 [facility] Comment on above: Order Comment: Speci men Type: BLOOD SPECIMEN Performed By: #### 5 8410-2 ####[facility]ORYCLIA [id number] [address] WBC (Bld) [#/Vol] 12.23 10*3/uL High 3.70-11.00 [facility] Comment on above: Order Comment: Speci men Type: BLOOD SPECIMEN Performed By: #### 5 8410-2 ####[facility]ORYCLIA [id number] [address] Comprehensive metabolic 2000 panelon 06-14-2021 Albumin [Mass/Vol] 3.1 g/dL Low 3.9-4.9 [facility] Comment on above: Order Comment: Speci men Type: BLOOD SPECIMEN Performed By: #### 2 4323-8, HSTNT, 2776-05, ####[facility]ATORYCLIA [id number] [place], [place] [address] [place] [address] ALP [Catalytic activity/Vol] 72 U/L Normal 38-113 [facility] Comment on above: Order Comment: Speci men Type: BLOOD SPECIMEN Performed By: #### 2 4323-8, HSTNT, 2776-05, ####[facility] LABORATORYCLIA [id number] [address] ALT With P-5'-P [Catalytic activity/Vol] 57 U/L High 10-54 [facility] Comment on above: Order Comment: Speci men Type: BLOOD SPECIMEN Performed By: #### 2 4323-8, HSTNT, 2776-05, ####[facility]ORYCLIA [id number] [address] Anion gap [Moles/Vol] 9 mmol/L Normal 9-18 [facility] Comment on above: Order Comment: Speci men Type: BLOOD SPECIMEN Performed By: #### 2 4323-8, HSTNT, 2776-05, ####[facility]ORYCLIA [id number] [place], [place] [address] [place] [address] AST With P-5'-P [Catalytic activity/Vol] 33 U/L Normal 14-40 [facility] Comment on above: Order Comment: Speci men Type: BLOOD SPECIMEN Performed By: #### 2 4323-8, HSTNT, 2776-05, ####[facility]ORYCLIA [id number] [address] Bilirubin [Mass/Vol] 0.5 mg/dL Normal 0.2-1.3 [facility] Comment on above: Order Comment: Speci men Type: BLOOD SPECIMEN Performed By: #### 2 4323-8, HSTNT, 2776-05, ####[facility]ATORYCLIA [id number] [place] [address] [place] Calcium [Mass/Vol] 8.8 mg/dL Normal 8.5-10.2 [facility] Comment on above: Order Comment: Speci men Type: BLOOD SPECIMEN Performed By: #### 2 4323-8, HSTNT, 2776-05, ####[facility]ORYCLIA [id number] [address] [place] Chloride [Moles/Vol] 124 mmol/L High 97-105 [facility] Comment on above: Order Comment: Speci men Type: BLOOD SPECIMEN Performed By: #### 2 4323-8, HSTNT, 2776-05, ####[facility]ORYCLIA [id number] [address] [place] CO2 [Moles/Vol] 29 mmol/L Normal 22-30 [facility] Comment on above: Order Comment: Speci men Type: BLOOD SPECIMEN Performed By: #### 2 4323-8, HSTNT, 2776-05, ####[facility]ORATORYCLIA [id number] [address] [place] Creatinine [Mass/Vol] 0.73 mg/dL Normal 0.73-1.22 [facility] Comment on above: Order Comment: Speci men Type: BLOOD SPECIMEN Performed By: #### 2 4323-8, HSTNT, 2776-05, ####[facility] LABORATORYCLIA [id number] [place] [address] [place] GFR/1.73 sq M.predicted [...] GFR. Performed By: #### 2 4323-8, HSTNT, ####[facility] [facility]ORYCLIA [id number] [place] [address] [place] Glucose [Mass/Vol] 137 mg/dL High 74-99 [facility] Comment on above: Order Comment: Speci men Type: BLOOD SPECIMEN Result Comment: The [place] Diabetes Association (ADA) provides guidance for cutoff [...] Standards of Medical Care in Diabetes 2016, [place] [employer]. Diabetes Care. 2016.39(Suppl 1). Performed By: #### 2 4323-8, HSTNT, ####[facility]ATORYCLIA [id number] [place] [address] [place] Potassium [Moles/Vol] 3.6 mmol/L Low 3.7-5.1 [facility] Comment on above: Order Comment: Speci men Type: BLOOD SPECIMEN Performed By: #### 2 4323-8, HSTNT, ####[facility]ORATORYCLIA [id number] [place] [address] [place] Protein [Mass/Vol] 5.9 g/dL Low 6.3-8.0 [facility] Comment on above: Order Comment: Speci men Type: BLOOD SPECIMEN Performed By: #### 2 4323-8, HSTNT, 2776-05, ####[facility]ORATORYCLIA [id number] [place], [place] [address] [place] [address] Sodium [Moles/Vol] 162 mmol/L High 136-144 [facility] Comment on above: Order Comment: Speci men Type: BLOOD SPECIMEN Performed By: #### 2 4323-8, HSTNT, 2776-05, ####[facility]ORATORYCLIA [id number] [address] Urea nitrogen [Mass/Vol] 33 mg/dL High 9-24 [facility] Comment on above: Order Comment: Speci men Type: BLOOD SPECIMEN Performed By: #### 2 4323-8, HSTNT, 2776-05, ####[facility]ORATORYCLIA [id number] [address] HIGH SENSITIVITY TROPONIN To n 06-14-2021 [...] By: #### H STNT ####[facility] LABORATORYCLIA [id number] [address] HIGH SENSITIVITY TAMIKO 22 ng/L High [...] Performed By: #### 2 4323-8, HSTNT, 2776-05, ####[facility]ORY[facility] [id number] [address] Magnesium SerPl-mCncon 06-14 Magnesium [Mass/Vol] 2.9 mg/dL High 1.7-2.3 [facility] Comment on above: Order Comment: Speci men Type: BLOOD SPECIMEN Performed By: #### 2 4323-8, HSTNT, 2776-05, ####[facility]ORATORYCLIA [id number] [address] Magnesium [Mass/Vol] 3.0 mg/dL High 1.7-2.3 [facility] Comment on above: Order Comment: Speci men Type: BLOOD SPECIMEN Performed By: #### 2 4321-2, 2776-05, ####[facility]ORATORYCLIA [id number] [address] NURSING PROGon 06-14-2021 NURSING PROG Normal [facility] NUTRITIONon 06-14-2021 NUTRITION Normal [facility] Phosphate SerPl-mCncon 06-14 Phosphate [Mass/Vol] 2.4 mg/dL Low 2.7-4.8 [facility] Comment on above: Order Comment: Speci men Type: BLOOD SPECIMEN Performed By: #### 2 4323-8, HSTNT, 2776-05, ####[facility]ATORYCLIA [id number] [address] Phosphate [Mass/Vol] 3.2 mg/dL Normal 2.7-4.8 [facility] Comment on above: Order Comment: Speci men Type: BLOOD SPECIMEN Performed By: #### 2 4321-2, 2776-05, ####[facility]ATORYCLIA [id number] [place] [address] [place] THERAPY NTon 06-14-2021 [...] 2 4321-2, , 2776-05 ####[facility]ORATORYCLIA [id number] [place] [address] [place] Calcium [Mass/Vol] 8.8 mg/dL Normal 8.5-10.2 [facility] Comment on above: Order Comment: Speci men Type: BLOOD SPECIMEN Performed By: #### 2 4321-2, , 2776-05 ####[facility]ORATORYCLIA [id number] [place] [address] [place] Chloride [Moles/Vol] 120 mmol/L High 97-105 [facility] Comment on above: Order Comment: Speci men Type: BLOOD SPECIMEN Performed By: #### 2 4321-2, , 2776-05 ####[facility]ATORYCLIA [id number] [place] [address] [place] CO2 [Moles/Vol] 28 mmol/L Normal 22-30 [facility] Comment on above: Order Comment: Speci men Type: BLOOD SPECIMEN Performed By: #### 2 4321-2, , 2776-05 ####[facility]ATORYCLIA [id number] [place] [address] [place] Creatinine [Mass/Vol] 0.78 mg/dL Normal 0.73-1.22 [facility] Comment on above: Order Comment: Speci men Type: BLOOD SPECIMEN Performed By: #### 2 4321-2, 30643-6, 2776-05 ####[facility]ATORYCLIA [id number] [place] [address] [place] GFR/1.73 sq M.predicted [...] Performed By: #### 2 4321-2, , 2776-05 ####[facility] [id number] [place] [address] [place] Glucose [Mass/Vol] 126 mg/dL High 74-99 [facility] Comment on above: Order Comment: Shira feldman Type: BLOOD SPECIMEN Result Comment: The [place] Diabetes Association (ADA) provides guidance for cutoff [...] Standards of Medical Care in Diabetes 2016, [place] [employer]. Diabetes Care. 2016.39(Suppl 1). Performed By: #### 2 4321-2, 80389-7, 2776- ####[facility]ATORYCLIA [id number] [place] [address] [place] Potassium [Moles/Vol] 3.6 mmol/L Low 3.7-5.1 [facility] Comment on above: Order Comment: Speci men Type: BLOOD SPECIMEN Performed By: #### 2 4321-2, , 2776-05 ####[facility]ORATORYCLIA [id number] [place] [address] [place] Sodium [Moles/Vol] 155 mmol/L High 136-144 [facility] Comment on above: Order Comment: Speci men Type: BLOOD SPECIMEN Performed By: #### 2 4321-2, , 2776-05 ####[facility]ATORYCLIA [id number] [place] [address] [place] Urea nitrogen [Mass/Vol] 36 mg/dL High 9-24 [facility] Comment on above: Order Comment: Speci men Type: BLOOD SPECIMEN Performed By: #### 2 4321-2, , 2776-05 ####[facility]ATORYCLIA [id number] [place], [place] [address] [place] [address] [place] Anion gap [Moles/Vol] 6 mmol/L Low 9-18 [facility] Comment on above: Order Comment: Speci men Type: BLOOD SPECIMEN Performed By: #### 2 4321-2, 2776-05, ####[facility]ATORYCLIA [id number] [place] [address] [place] Calcium [Mass/Vol] 6.5 mg/dL Low 8.5-10.2 [facility] Comment on above: Order Comment: Speci men Type: BLOOD SPECIMEN Performed By: #### 2 4321-2, 2776-05, ####[facility]ATORYCLIA [id number] [place] [address] [place] Chloride [Moles/Vol] 124 mmol/L High 97-105 [facility] Comment on above: Order Comment: Speci men Type: BLOOD SPECIMEN Performed By: #### 2 4321-2, 2776-05, ####[facility]ATORYCLIA [id number] [place], [place] [address] [place] [address] [place] CO2 [Moles/Vol] 24 mmol/L Normal 22-30 [facility] Comment on above: Order Comment: Speci men Type: BLOOD SPECIMEN Performed By: #### 2 4321-2, 2776-05, ####[facility]ATORYCLIA [id number] [address] [place] Creatinine [Mass/Vol] 0.61 mg/dL Low 0.73-1.22 [facility] Comment on above: Order Comment: Speci men Type: BLOOD SPECIMEN Performed By: #### 2 4321-2, 2776-05, ####[facility]ORATORYCLIA [id number] [address] [place] GFR/1.73 sq M.predicted [...] #### 2 4321-2, 2776-05, ####[facility]ORATORYCLIA [id number] [place] [address] [place] Glucose [Mass/Vol] 100 mg/dL High 74-99 [facility] Comment on above: Order Comment: Speci men Type: BLOOD SPECIMEN Result Comment: The [place] Diabetes Association (ADA) provides guidance for cutoff [...] Standards of Medical Care in Diabetes 2016, [place] [employer]. Diabetes Care. 2016.39(Suppl 1). Performed By: #### 2 4321-2, 2776-05, ####[facility]ATORYCLIA [id number] [address] STATES OF [facility] Potassium [Moles/Vol] 2.7 mmol/L Low 3.7-5.1 [facility] Comment on above: Order Comment: Speci men Type: BLOOD SPECIMEN Performed By: #### 2 4321-2, 2776-05, ####[facility]ATORYCLIA [id number] [address] STATES OF [facility] Sodium [Moles/Vol] 154 mmol/L High 136-144 [facility] Comment on above: Order Comment: Speci men Type: BLOOD SPECIMEN Performed By: #### 2 4321-2, 2776-05, ####[facility]ORATORYCLIA [id number] [address] [place] Urea nitrogen [Mass/Vol] 29 mg/dL High 9-24 [facility] Comment on above: Order Comment: Speci men Type: BLOOD SPECIMEN Performed By: #### 2 4321-2, 2776-05, ####[facility]ATORYCLIA [id number] [address] [place] CASE MANAGEMon 06-13-2021 CASE MANAGEM Normal [facility] CBC panel Auto (Bld)on 06-13 Erythrocyte distribution width (RBC) [Ratio] 15.9 % High 11.5-15.0 [facility] Comment on above: Order Comment: Speci men Type: BLOOD SPECIMEN Performed By: #### 5 8410-2 ####[facility]ORATORYCLIA [id number] [address] Hematocrit (Bld) [Volume fraction] 34.3 % Low 39.0-51.0 [facility] Comment on above: Order Comment: Speci men Type: BLOOD SPECIMEN Performed By: #### 5 8410-2 ####[facility]ATORYCLIA [id number] [address] Hemoglobin (Bld) [Mass/Vol] 9.9 g/dL Low 13.0-17.0 [facility] Comment on above: Order Comment: Speci men Type: BLOOD SPECIMEN Performed By: #### 5 8410-2 ####[facility]ORATORYCLIA [id number] [address] MCH (RBC) [Entitic mass] 27.3 pg Normal 26.0-34.0 [facility] Comment on above: Order Comment: Speci men Type: BLOOD SPECIMEN Performed By: #### 5 8410-2 ####[facility]ATORYCLIA [id number] [address] MCHC (RBC) [Mass/Vol] 28.9 g/dL Low 30.5-36.0 [facility] Comment on above: Order Comment: Speci men Type: BLOOD SPECIMEN Performed By: #### 5 8410-2 ####[facility]ORATORYCLIA [id number] [address] MCV (RBC) [Entitic vol] 94.5 fL Normal 80.0-100.0 [facility] Comment on above: Order Comment: Speci men Type: BLOOD SPECIMEN Performed By: #### 5 8410-2 ####[facility]ORATORYCLIA [id number] [address] Nucleated RBC (Bld) [#/Vol] 10*3/uL Normal <0.01 [facility] Comment on above: Order Comment: Speci men Type: BLOOD SPECIMEN Performed By: #### 5 8410-2 ####[facility]ATORYCLIA [id number] [address] Platelet mean volume (Bld) [Entitic vol] 11.3 fL Normal 9.0-12.7 [facility] Comment on above: Order Comment: Speci men Type: BLOOD SPECIMEN Performed By: #### 5 8410-2 ####[facility]ATORYCLIA [id number] [address] STATES OF [facility] Platelets (Bld) [#/Vol] 269 10*3/uL Normal 150-400 [facility] Comment on above: Order Comment: Speci men Type: BLOOD SPECIMEN Performed By: #### 5 8410-2 ####[facility]ORATORYCLIA [id number] [address] OF [facility] RBC (Bld) [#/Vol] 3.63 10*6/uL Low 4.20-6.00 [facility] Comment on above: Order Comment: Speci men Type: BLOOD SPECIMEN Performed By: #### 5 8410-2 ####[facility]ATORYCLIA [id number] [address] OF [facility] WBC (Bld) [#/Vol] 12.77 10*3/uL High 3.70-11.00 [facility] Comment on above: Order Comment: Speci men Type: BLOOD SPECIMEN Performed By: #### 5 8410-2 ####[facility]ATORYCLIA [id number] [address] Gas and Carbon monoxide pane l (BldV)on 06-13-2021 Base excess Calc (BldV) [Moles/Vol] 5.7 mmol/L High 0-2 [facility] Comment on above: Order Comment: Speci men Type: VENOUS BLOOD SPECIMEN Performed By: #### 2 4344-4 ####[facility]ORATORYCLIA [id number] [address] Body temperature 99.5 [degF] Normal [facility] Comment on above: Order Comment: Speci men Type: VENOUS BLOOD SPECIMEN Performed By: #### 2 4344-4 ####[facility]ATORYCLIA [id number] [address] CALCIUM IONIZED, PH CORRECTED 1.24 mmol/L Normal 1.08-1.30 [facility] Comment on above: Order Comment: Speci men Type: VENOUS BLOOD SPECIMEN Performed By: #### 2 4344-4 ####[facility]ATORYCLIA [id number] [address] Calcium.ionized (BldV) [Mass/Vol] 1.23 mmol/L Normal 1.08-1.30 [facility] Comment on above: Order Comment: Speci men Type: VENOUS BLOOD SPECIMEN Performed By: #### 2 4344-4 ####[facility]ATORYCLIA [id number] [address] Carboxyhemoglobin (BldV) [Mass fraction] 1.2 % Normal 0.0-2.0 [facility] Comment on above: Order Comment: Speci men Type: VENOUS BLOOD SPECIMEN Result Comment: Carb oxyhemoglobin Reference Range for Smokers: 2.0-8.0% Performed By: #### 2 4344-4 ####[facility]ATORYCLIA [id number] [address] CO2 (BldV) [Partial pressure] 48 mm[Hg] Normal 42-55 [facility] Comment on above: Order Comment: Speci men Type: VENOUS BLOOD SPECIMEN Performed By: #### 2 4344-4 ####[facility]ORATORYCLIA [id number] [address] CO2 [Moles/Vol] 28.2 mmol/L Normal 25-29 [facility] Comment on above: Order Comment: Speci men Type: VENOUS BLOOD SPECIMEN Performed By: #### 2 4344-4 ####[facility]ATORYCLIA [id number] [address] CO2 adjusted to patient's actual temperature (BldV) [Partial pressure] 49 mmHg Normal 42-55 [facility] Comment on above: Order Comment: Speci men Type: VENOUS BLOOD SPECIMEN Performed By: #### 2 4344-4 ####[facility]ORYCLIA [id number] [address] Glucose [Mass/Vol] 131 mg/dL High 60-105 [facility] Comment on above: Order Comment: Speci men Type: VENOUS BLOOD SPECIMEN Performed By: #### 2 4344-4 ####[facility]ATORYCLIA [id number] [address] HCO3 (Bld) [Moles/Vol] 30.6 mmol/L High 24-28 [facility] Comment on above: Order Comment: Speci men Type: VENOUS BLOOD SPECIMEN Performed By: #### 2 4344-4 ####[facility]ATORYCLIA [id number] [address] [place] Hematocrit (Bld) [Volume fraction] 32.8 % Low 39.0-51.0 [facility] Comment on above: Order Comment: Speci men Type: VENOUS BLOOD SPECIMEN Performed By: #### 2 4344-4 ####[facility]ATORYCLIA [id number] [address] [place] Hemoglobin (Bld) [Mass/Vol] 10.6 g/dL Low 13.0-17.0 [facility] Comment on above: Order Comment: Speci men Type: VENOUS BLOOD SPECIMEN Performed By: #### 2 4344-4 ####[facility]ATORYCLIA [id number] [address] [place] LITERS 6 Liters/min Normal [facility] Comment on above: Order Comment: Speci men Type: VENOUS BLOOD SPECIMEN Performed By: #### 2 4344-4 ####[facility]ORATORYCLIA [id number] [place] [address] [facility] [place] Methemoglobin (Bld) [Mass fraction] 1.0 % Normal 0.0-1.5 [facility] Comment on above: Order Comment: Speci men Type: VENOUS BLOOD SPECIMEN Performed By: #### 2 4344-4 ####[facility]ATORYCLIA [id number] [place] [address] [facility] O2 THERAPY NC = Nasal Cannula Normal [facility] Comment on above: Order Comment: Speci men Type: VENOUS BLOOD SPECIMEN Performed By: #### 2 4344-4 ####[facility]ATORYCLIA [id number] [place], [place] [address] [place] [address] [place] Oxygen (BldV) [Partial pressure] 42 mm[Hg] Normal 35-45 [facility] Comment on above: Order Comment: Speci men Type: VENOUS BLOOD SPECIMEN Performed By: #### 2 4344-4 ####[facility]ATORYCLIA [id number] [place], [place] [address] [place] [address] Oxygen adjusted to patient's actual temperature (BldV) [Partial pressure] 43.8 mmHg Normal 35-45 [facility] Comment on above: Order Comment: Speci men Type: VENOUS BLOOD SPECIMEN Performed By: #### 2 4344-4 ####[facility]ATORYCLIA [id number] [place], [place] [address] [place] [address] [place] Oxygen saturation in Blood 76.7 % Normal 60-85 [facility] Comment on above: Order Comment: Speci men Type: VENOUS BLOOD SPECIMEN Performed By: #### 2 4344-4 ####[facility]ATORYCLIA [id number] [place], [place] [address] [place] [address] [place] Oxyhemoglobin (BldV) [Mass fraction] 75 % Normal 60-85 [facility] Comment on above: Order Comment: Speci men Type: VENOUS BLOOD SPECIMEN Performed By: #### 2 4344-4 ####[facility]ATORYCLIA [id number] [place], [place] [address] [place] [address] [place] pH (BldV) 7.42 [pH] Normal 7.32-7.42 [facility] Comment on above: Order Comment: Speci men Type: VENOUS BLOOD SPECIMEN Performed By: #### 2 4344-4 ####[facility]ORYCLIA [id number] [address] pH adjusted to patient's actual temperature (BldV) 7.41 Normal 7.32-7.42 [facility] Comment on above: Order Comment: Speci men Type: VENOUS BLOOD SPECIMEN Performed By: #### 2 4344-4 ####[facility]ORYCLIA [id number] [address] Potassium [Moles/Vol] 3.5 mmol/L Normal 3.5-5.0 [facility] Comment on above: Order Comment: Speci men Type: VENOUS BLOOD SPECIMEN Performed By: #### 2 4344-4 ####[facility]ORYCLIA [id number] [address] Sodium [Moles/Vol] 157 mmol/L High 136-144 [facility] Comment on above: Order Comment: Speci men Type: VENOUS BLOOD SPECIMEN Performed By: #### 2 4344-4 ####[facility]ORYCLIA [id number] [address] Magnesium SerPl-mCncon 06-13 Magnesium [Mass/Vol] 3.0 mg/dL High 1.7-2.3 [facility] Comment on above: Order Comment: Speci men Type: BLOOD SPECIMEN Performed By: #### 2 4321-2, , 2776-05 ####[facility]ORYCLIA [id number] [address] Magnesium [Mass/Vol] 2.2 mg/dL Normal 1.7-2.3 [facility] Comment on above: Order Comment: Speci men Type: BLOOD SPECIMEN Performed By: #### 2 4321-2, 2776-, ####[facility]ORATORYCLIA [id number] [place] [address] [place] Phosphate SerPl-mCncon 06-13 Phosphate [Mass/Vol] 2.2 mg/dL Low 2.7-4.8 [facility] Comment on above: Order Comment: Speci men Type: BLOOD SPECIMEN Performed By: #### 2 4321-2, , 2776-05 ####[facility]ORYCLIA [id number] [address] STATES OF [facility] Phosphate [Mass/Vol] 1.8 mg/dL Low 2.7-4.8 [facility] Comment on above: Order Comment: Speci men Type: BLOOD SPECIMEN Performed By: #### 2 4321-2, 2776-05, ####[facility]ATORYCLIA [id number] [address] STATES OF [facility] XR CHEST 1V FRONTALon 2021 [...] By: #### 6 11-4 ####[facility]ORYCLIA [id number] [address] [place] Basic metabolic 2000 panelon 06-12-2021 Anion gap [Moles/Vol] 6 mmol/L Low 9-18 [facility] Comment on above: Order Comment: Speci men Type: BLOOD SPECIMEN Performed By: #### 2 777-1, 96857-2, ####[facility]ORYCLIA [id number] [address] [place] Calcium [Mass/Vol] 8.7 mg/dL Normal 8.5-10.2 [facility] Comment on above: Order Comment: Speci men Type: BLOOD SPECIMEN Performed By: #### 2 777-1, 22347-0, ####[facility]ORYCLIA [id number] [address] Chloride [Moles/Vol] 118 mmol/L High 97-105 [facility] Comment on above: Order Comment: Speci men Type: BLOOD SPECIMEN Performed By: #### 2 777-1, 40121-5, ####[facility]ORYCLIA [id number] [address] CO2 [Moles/Vol] 28 mmol/L Normal 22-30 [facility] Comment on above: Order Comment: Speci men Type: BLOOD SPECIMEN Performed By: #### 2 777-1, , ####[facility]ORYCLIA [id number] [address] STATES [facility] Creatinine [Mass/Vol] 0.77 mg/dL Normal 0.73-1.22 [facility] Comment on above: Order Comment: Speci men Type: BLOOD SPECIMEN Performed By: #### 2 777-1, , ####[facility]ORYCLIA [id number] [address] GFR/1.73 sq M.predicted MDRD (S/P/Bld) [Vol [...] actual GFR. Performed By: #### 2 777-1, 70022-3, ####[facility]ATORYCLIA [id number] [place] [address] [place] Glucose [Mass/Vol] 116 mg/dL High 74-99 [facility] Comment on above: Order Comment: Speci men Type: BLOOD SPECIMEN Result Comment: The [place] [employer] (ADA) provides guidance for cutoff [...] Standards of Medical Care in Diabetes 2016, [place] [employer]. Diabetes Care. 2016.39(Suppl 1). Performed By: #### 2 777-1, , ####[facility]ATORYCLIA [id number] [place] [address] [place] Potassium [Moles/Vol] 4.0 mmol/L Normal 3.7-5.1 [facility] Comment on above: Order Comment: Speci men Type: BLOOD SPECIMEN Performed By: #### 2 777-1, , ####[facility]ORYCLIA [id number] [place] [address] [place] Sodium [Moles/Vol] 152 mmol/L High 136-144 [facility] Comment on above: Order Comment: Speci men Type: BLOOD SPECIMEN Performed By: #### 2 777-1, , ####[facility]ORYCLIA [id number] [place] [address] [place] Urea nitrogen [Mass/Vol] 34 mg/dL High 9-24 [facility] Comment on above: Order Comment: Speci men Type: BLOOD SPECIMEN Performed By: #### 2 777-1, 04885-4, 42630-7 ####[facility]ATORYCLIA [id number] [address] CBC panel Auto (Bld)on 06-12 Erythrocyte distribution width (RBC) [Ratio] 16.1 % High 11.5-15.0 [facility] Comment on above: Order Comment: Speci men Type: BLOOD SPECIMEN Performed By: #### 5 8410-2 ####[facility]ORYCLIA [id number] [address] Hematocrit (Bld) [Volume fraction] 32.8 % Low 39.0-51.0 [facility] Comment on above: Order Comment: Speci men Type: BLOOD SPECIMEN Performed By: #### 5 8410-2 ####[facility]ORYCLIA [id number] [address] Hemoglobin (Bld) [Mass/Vol] 9.9 g/dL Low 13.0-17.0 [facility] Comment on above: Order Comment: Speci men Type: BLOOD SPECIMEN Performed By: #### 5 8410-2 ####[facility] LABORATORYCLIA [id number] [address] MCH (RBC) [Entitic mass] 28.4 pg Normal 26.0-34.0 [facility] Comment on above: Order Comment: Speci men Type: BLOOD SPECIMEN Performed By: #### 5 8410-2 ####[facility] LABORATORYCLIA [id number] [address] MCHC (RBC) [Mass/Vol] 30.2 g/dL Low 30.5-36.0 [facility] Comment on above: Order Comment: Speci men Type: BLOOD SPECIMEN Performed By: #### 5 8410-2 ####[facility] LABORATORYCLIA [id number] [address] MCV (RBC) [Entitic vol] 94.3 fL Normal 80.0-100.0 [facility] Comment on above: Order Comment: Speci men Type: BLOOD SPECIMEN Performed By: #### 5 8410-2 ####[facility] LABORATORYCLIA [id number] [address] Nucleated RBC (Bld) [#/Vol] 10*3/uL Normal <0.01 [facility] Comment on above: Order Comment: Speci men Type: BLOOD SPECIMEN Performed By: #### 5 8410-2 ####[facility]ORATORYCLIA [id number] [address] Platelet mean volume (Bld) [Entitic vol] 11.2 fL Normal 9.0-12.7 [facility] Comment on above: Order Comment: Speci men Type: BLOOD SPECIMEN Performed By: #### 5 8410-2 ####[facility]ATORYCLIA [id number] [address] Platelets (Bld) [#/Vol] 218 10*3/uL Normal 150-400 [facility] Comment on above: Order Comment: Speci men Type: BLOOD SPECIMEN Performed By: #### 5 8410-2 ####[facility]ORATORYCLIA [id number] [address] RBC (Bld) [#/Vol] 3.48 10*6/uL Low 4.20-6.00 [facility] Comment on above: Order Comment: Speci men Type: BLOOD SPECIMEN Performed By: #### 5 8410-2 ####[facility]ORATORYCLIA [id number] [address] OF [facility] WBC (Bld) [#/Vol] 13.33 10*3/uL High 3.70-11.00 [facility] Comment on above: Order Comment: Speci men Type: BLOOD SPECIMEN Performed By: #### 5 8410-2 ####[facility]ORATORYCLIA [id number] [address] OF [facility] CONSULT PROGon 06-12-2021 CONSULT PROG Normal [facility] CT DRN PLACE PERIT/RETROP [place] BIon 06-12-[address] PERIT/RETROP FL BI Normal [facility] HISTORY PHYSICALon 2 HISTORY PHYSICAL Normal [facility] Magnesium SerPl-mCncon 06-12 Magnesium [Mass/Vol] 2.7 mg/dL High 1.7-2.3 [facility] Comment on above: Order Comment: Speci men Type: BLOOD SPECIMEN Performed By: #### 2 777-1, 66978-7, 42660-2 ####[facility]ORATORYCLIA [id number] [place] [address] [place] PT panel Coag (PPP)on 2021 INR Coag (PPP) [Relative time] 1.1 {INR} Normal 0.9-1.3 [facility] Comment on above: Order Comment: Speci men Type: BLOOD SPECIMEN Result Comment: Yris min K Antagonist (VKA) Therapeutic Range: INR 2 to 3 (Target INR of 2.5)Note: For patients treated with VKA drugs, such as warfarin, the [place] [employer] 2012 Guideline recommends [...] By: #### 3 4528-0 ####[facility]ORATORYCLIA [id number] [place] [address] [place] PT Coag (PPP) [Time] 11.9 s Normal 9.7-13.0 [facility] Comment on above: Order Comment: Speci men Type: BLOOD SPECIMEN Performed By: #### 3 4528-0 ####[facility]ORATORYCLIA [id number] [address] Phosphate SerPl-mCncon 06-12 Phosphate [Mass/Vol] 2.2 mg/dL Low 2.7-4.8 [facility] Comment on above: Order Comment: Speci men Type: BLOOD SPECIMEN Performed By: #### 2 777-1, 69181-2, 36294-0 ####[facility]ORATORYCLIA [id number] [address] OF [facility] XR ABDOMEN 1V SUPINEon 06-12 XR ABDOMEN 1V SUPINE Normal [facility] ALLIED HEALTHon 06-11-2021 ALLIED HEALTH Normal [facility] Bacteria Bld Culton 06-11-19 22 Bacteria identified Cx Nom (Bld) CULTURE, BLOOD: No growth 5 days Normal [facility] Comment on above: Performed By: #### 6 00-7 ####[facility]ORATORYCLIA [id number] [address] Bacteria identified Cx Nom (Bld) CULTURE, BLOOD: No growth 5 days Normal [facility] Comment on above: Performed By: #### 6 00-7 ####[facility]ATORYCLIA [id number] [address] Bacteria Ur Culton 2 Bacteria identified Cx Nom (U) CULTURE, URINE: No growth (<1,000 CFU/ml) [facility] Comment on above: Performed By: #### 6 30-4 ####[facility]ATORYCLIA [id number] [address] Basic metabolic 2000 panelon 06-11-2021 Anion gap [Moles/Vol] 9 mmol/L Normal 9-18 [facility] Comment on above: Order Comment: Speci men Type: BLOOD SPECIMEN Performed By: #### 1 9123-9, 2777-1, 62622-2 ####[facility]ATORYCLIA [id number] [address] STATES OF [facility] Calcium [Mass/Vol] 8.5 mg/dL Normal 8.5-10.2 [facility] Comment on above: Order Comment: Speci men Type: BLOOD SPECIMEN Performed By: #### 1 9123-9, 2777-1, 56997-9 ####[facility]ORATORYCLIA [id number] [address] OF [place] Chloride [Moles/Vol] 118 mmol/L High 97-105 [facility] Comment on above: Order Comment: Speci men Type: BLOOD SPECIMEN Performed By: #### 1 9123-9, 277-, 00431-0 ####[facility]ATORYCLIA [id number] [address] CO2 [Moles/Vol] 27 mmol/L Normal 22-30 [facility] Comment on above: Order Comment: Speci men Type: BLOOD SPECIMEN Performed By: #### 1 9123-9, 2777-1, 60374-5 ####[facility]ORATORYCLIA [id number] [address] STATES [facility] Creatinine [Mass/Vol] 0.75 mg/dL Normal 0.73-1.22 [facility] Comment on above: Order Comment: Speci men Type: BLOOD SPECIMEN Performed By: #### 1 9123-9, 2777-1, 59417-5 ####[facility]ATORYCLIA [id number] [address] [place] GFR/1.73 sq M.predicted [...] GFR. Performed By: #### 1 9123-9, 7-, 03368-0 ####[facility]ATORYCLIA [id number] [address] [place] Glucose [Mass/Vol] 142 mg/dL High 74-99 [facility] Comment on above: Order Comment: Speci men Type: BLOOD SPECIMEN Result Comment: The [place] [employer] (ADA) provides guidance for cutoff [...] Standards of Medical Care in Diabetes 2016, [place] [employer]. Diabetes Care. 2016.39(Suppl 1). Performed By: #### 1 9123-9, 2776-05, 43401-6 ####[facility]ORATORYCLIA [id number] [place] [address] [place] Potassium [Moles/Vol] 3.6 mmol/L Low 3.7-5.1 [facility] Comment on above: Order Comment: Speci men Type: BLOOD SPECIMEN Performed By: #### 1 9123-9, 27711-04, 66153-1 ####[facility]ORATORYCLIA [id number] [address] [place] Sodium [Moles/Vol] 154 mmol/L High 136-144 [facility] Comment on above: Order Comment: Speci men Type: BLOOD SPECIMEN Performed By: #### 1 9123-9, 27711-04, 43907-5 ####[facility]ORATORYCLIA [id number] [address] Urea nitrogen [Mass/Vol] 31 mg/dL High 9-24 [facility] Comment on above: Order Comment: Speci men Type: BLOOD SPECIMEN Performed By: #### 1 9123-9, 2777-1, 62059-1 ####[facility]ORATORYCLIA [id number] [address] C diff Tox gens Stl Ql MEGAN+p robeon 06-11-2021 C. difficile toxin genes MEGAN+probe Ql (Stl) Negative Normal Negative for C. difficile toxin by PCR [facility] Comment on above: Order Comment: Speci men Type: STOOL SPECIMEN Performed By: #### 5 4067-4 ####[facility]ORATORYCLIA [id number] [address] CBC W Auto Differential pane l (Bld)on 06-11-2021 Basophils (Bld) [#/Vol] 0.03 10*3/uL Normal <0.11 [facility] Comment on above: Order Comment: Speci men Type: BLOOD SPECIMEN Performed By: #### 5 7021-8 ####[facility]ORATORYCLIA [id number] [address] Basophils/100 WBC (Bld) 0.2 % Normal [facility] Comment on above: Order Comment: Speci men Type: BLOOD SPECIMEN Performed By: #### 5 7021-8 ####[facility]ATORYCLIA [id number] [address] Differential cell count method Nom (Bld) Auto Normal [facility] Comment on above: Order Comment: Speci men Type: BLOOD SPECIMEN Performed By: #### 5 7021-8 ####[facility]ORATORYCLIA [id number] [address] STATES [facility] Eosinophils (Bld) [#/Vol] 0.19 10*3/uL Normal <0.46 [facility] Comment on above: Order Comment: Speci men Type: BLOOD SPECIMEN Performed By: #### 5 7021-8 ####[facility]ATORYCLIA [id number] [address] Eosinophils/100 WBC (Bld) 1.5 % Normal [facility] Comment on above: Order Comment: Speci men Type: BLOOD SPECIMEN Performed By: #### 5 7021-8 ####[facility]ATORYCLIA [id number] [address] Erythrocyte distribution width (RBC) [Ratio] 16.3 % High 11.5-15.0 [facility] Comment on above: Order Comment: Speci men Type: BLOOD SPECIMEN Performed By: #### 5 7021-8 ####[facility]ATORYCLIA [id number] [address] Hematocrit (Bld) [Volume fraction] 32.1 % Low 39.0-51.0 [facility] Comment on above: Order Comment: Speci men Type: BLOOD SPECIMEN Performed By: #### 5 7021-8 ####[facility]ORATORYCLIA [id number] [address] Hemoglobin (Bld) [Mass/Vol] 9.3 g/dL Low 13.0-17.0 [facility] Comment on above: Order Comment: Speci men Type: BLOOD SPECIMEN Performed By: #### 5 7021-8 ####[facility]ORATORYCLIA [id number] [address] IMMATURE GRAN % 0.6 % Normal [facility] Comment on above: Order Comment: Speci men Type: BLOOD SPECIMEN Performed By: #### 5 7021-8 ####[facility]ORATORYCLIA [id number] [address] IMMATURE GRAN ABS 0.08 k/uL Normal <0.10 [facility] Comment on above: Order Comment: Speci men Type: BLOOD SPECIMEN Performed By: #### 5 7021-8 ####[facility]ATORYCLIA [id number] [address] Lymphocytes (Bld) [#/Vol] 1.65 10*3/uL Normal 1.00-4.00 [facility] Comment on above: Order Comment: Speci men Type: BLOOD SPECIMEN Performed By: #### 5 7021-8 ####[facility]ORATORYCLIA [id number] [address] Lymphocytes/100 WBC (Bld) 12.8 % Normal [facility] Comment on above: Order Comment: Speci men Type: BLOOD SPECIMEN Performed By: #### 5 7021-8 ####[facility]ATORYCLIA [id number] [address] MCH (RBC) [Entitic mass] 27.2 pg Normal 26.0-34.0 [facility] Comment on above: Order Comment: Speci men Type: BLOOD SPECIMEN Performed By: #### 5 7021-8 ####[facility]ORATORYCLIA [id number] [address] MCHC (RBC) [Mass/Vol] 29.0 g/dL Low 30.5-36.0 [facility] Comment on above: Order Comment: Speci men Type: BLOOD SPECIMEN Performed By: #### 5 7021-8 ####[facility]ATORYCLIA [id number] [address] MCV (RBC) [Entitic vol] 93.9 fL Normal 80.0-100.0 [facility] Comment on above: Order Comment: Speci men Type: BLOOD SPECIMEN Performed By: #### 5 7021-8 ####[facility]ATORYCLIA [id number] [address] Monocytes (Bld) [#/Vol] 0.68 10*3/uL Normal <0.87 [facility] Comment on above: Order Comment: Speci men Type: BLOOD SPECIMEN Performed By: #### 5 7021-8 ####[facility]ORATORYCLIA [id number] [place] [address] Monocytes/100 WBC (Bld) 5.3 % Normal [facility] Comment on above: Order Comment: Speci men Type: BLOOD SPECIMEN Performed By: #### 5 7021-8 ####[facility]ORATORYCLIA [id number] [address] Neutrophils (Bld) [#/Vol] 10.22 10*3/uL High 1.45-7.50 [facility] Comment on above: Order Comment: Speci men Type: BLOOD SPECIMEN Performed By: #### 5 7021-8 ####[facility]ATORYCLIA [id number] [address] Neutrophils/100 WBC (Bld) 79.6 % Normal [facility] Comment on above: Order Comment: Speci men Type: BLOOD SPECIMEN Performed By: #### 5 7021-8 ####[facility]ATORYCLIA [id number] [address] Nucleated RBC (Bld) [#/Vol] 10*3/uL Normal <0.01 [facility] Comment on above: Order Comment: Speci men Type: BLOOD SPECIMEN Performed By: #### 5 7021-8 ####[facility]ORATORYCLIA [id number] [address] Nucleated RBC/100 WBC (Bld) [Ratio] 0.0 /100 WBC Normal 0.0 [facility] Comment on above: Order Comment: Speci men Type: BLOOD SPECIMEN Performed By: #### 5 7021-8 ####[facility]ORATORYCLIA [id number] [address] Platelet mean volume (Bld) [Entitic vol] 11.1 fL Normal 9.0-12.7 [facility] Comment on above: Order Comment: Speci men Type: BLOOD SPECIMEN Performed By: #### 5 7021-8 ####[facility]ORATORYCLIA [id number] [address] Platelets (Bld) [#/Vol] 188 10*3/uL Normal 150-400 [facility] Comment on above: Order Comment: Speci men Type: BLOOD SPECIMEN Performed By: #### 5 7021-8 ####[facility]ORATORYCLIA [id number] [address] RBC (Bld) [#/Vol] 3.42 10*6/uL Low 4.20-6.00 [facility] Comment on above: Order Comment: Speci men Type: BLOOD SPECIMEN Performed By: #### 5 7021-8 ####[facility]ORATORYCLIA [id number] [address] WBC (Bld) [#/Vol] 12.85 10*3/uL High 3.70-11.00 [facility] Comment on above: Order Comment: Speci men Type: BLOOD SPECIMEN Performed By: #### 5 7021-8 ####[facility]ORATORYCLIA [id number] [address] CBC panel Auto (Bld)on 06-11 Erythrocyte distribution width (RBC) [Ratio] 16.2 % High 11.5-15.0 [facility] Comment on above: Order Comment: Speci men Type: BLOOD SPECIMEN Performed By: #### 5 8410-2 ####[facility]ORATORYCLIA [id number] [address] Hematocrit (Bld) [Volume fraction] 34.5 % Low 39.0-51.0 [facility] Comment on above: Order Comment: Speci men Type: BLOOD SPECIMEN Performed By: #### 5 8410-2 ####[facility]ATORYCLIA [id number] [address] Hemoglobin (Bld) [Mass/Vol] 10.3 g/dL Low 13.0-17.0 [facility] Comment on above: Order Comment: Speci men Type: BLOOD SPECIMEN Performed By: #### 5 8410-2 ####[facility]ORATORYCLIA [id number] [address] MCH (RBC) [Entitic mass] 28.1 pg Normal 26.0-34.0 [facility] Comment on above: Order Comment: Speci men Type: BLOOD SPECIMEN Performed By: #### 5 8410-2 ####[facility]ATORYCLIA [id number] [address] MCHC (RBC) [Mass/Vol] 29.9 g/dL Low 30.5-36.0 [facility] Comment on above: Order Comment: Speci men Type: BLOOD SPECIMEN Performed By: #### 5 8410-2 ####[facility]ATORYCLIA [id number] [address] MCV (RBC) [Entitic vol] 94.3 fL Normal 80.0-100.0 [facility] Comment on above: Order Comment: Speci men Type: BLOOD SPECIMEN Performed By: #### 5 8410-2 ####[facility]ATORYCLIA [id number] [address] Nucleated RBC (Bld) [#/Vol] 10*3/uL Normal <0.01 [facility] Comment on above: Order Comment: Speci men Type: BLOOD SPECIMEN Performed By: #### 5 8410-2 ####[facility]ATORYCLIA [id number] [address] Platelet mean volume (Bld) [Entitic vol] 10.9 fL Normal 9.0-12.7 [facility] Comment on above: Order Comment: Speci men Type: BLOOD SPECIMEN Performed By: #### 5 8410-2 ####[facility]ORATORYCLIA [id number] [address] Platelets (Bld) [#/Vol] 210 10*3/uL Normal 150-400 [facility] Comment on above: Order Comment: Speci men Type: BLOOD SPECIMEN Performed By: #### 5 8410-2 ####[facility]ATORYCLIA [id number] [address] RBC (Bld) [#/Vol] 3.66 10*6/uL Low 4.20-6.00 [facility] Comment on above: Order Comment: Speci men Type: BLOOD SPECIMEN Performed By: #### 5 8410-2 ####[facility]ATORYCLIA [id number] [address] WBC (Bld) [#/Vol] 13.03 10*3/uL High 3.70-11.00 [facility] Comment on above: Order Comment: Speci men Type: BLOOD SPECIMEN Performed By: #### 5 8410-2 ####[facility]ORATORYCLIA [id number] [address] CONSULT PROGon 06-11-2021 CONSULT PROG Normal [...] SPECIMEN Performed By: #### 1 9123-9, 2777-1, 54137-2 ####[facility]ORATORYCLIA [id number] [address] Phosphate SerPl-mCncon 06-11 Phosphate [Mass/Vol] 2.5 mg/dL Low 2.7-4.8 [facility] Comment on above: Order Comment: Speci men Type: BLOOD SPECIMEN Performed By: #### 1 9123-9, 2777-1, 07785-9 ####[facility]ORATORYCLIA [id number] [address] OF [facility] Basic metabolic 2000 panelon 06-10-2021 Anion gap [Moles/Vol] 7 mmol/L Low 9-18 [facility] Comment on above: Order Comment: Speci men Type: BLOOD SPECIMEN Performed By: #### 2 777-1, 46152-0, , HFP ####[facility]ATORYCLIA [id number] [place], [place] [id number] [place] [address] [place] OF [facility] Calcium [Mass/Vol] 8.5 mg/dL Normal 8.5-10.2 [facility] Comment on above: Order Comment: Speci men Type: BLOOD SPECIMEN Performed By: #### 2 777-1, 90577-7, , HFP ####[facility]ATORYCLIA [id number] [place], [place] [address] [place] [address] [place] Chloride [Moles/Vol] 118 mmol/L High 97-105 [facility] Comment on above: Order Comment: Speci men Type: BLOOD SPECIMEN Performed By: #### 2 777-1, 59054-0, , HFP ####[facility]ORATORYCLIA [id number] [address] [place] CO2 [Moles/Vol] 26 mmol/L Normal 22-30 [facility] Comment on above: Order Comment: Speci men Type: BLOOD SPECIMEN Performed By: #### 2 777-1, 00494-1, , HFP ####[facility]ORYCLIA [id number] [address] [place] Creatinine [Mass/Vol] 0.70 mg/dL Low 0.73-1.22 [facility] Comment on above: Order Comment: Speci men Type: BLOOD SPECIMEN Performed By: #### 2 777-1, 30708-0, , HFP ####[facility]ORATORYCLIA [id number] [place] [address] [place] GFR/1.73 sq M.predicted [...] actual GFR. Performed By: #### 2 777-1, 18702-9, , [facility] ####[facility] LABORATORYCLIA [id number] [place] [address] [place] Glucose [Mass/Vol] 135 mg/dL High 74-99 [facility] Comment on above: Order Comment: Speci men Type: BLOOD SPECIMEN Result Comment: The [place] [employer] (ADA) provides guidance for cutoff [...] Standards of Medical Care in Diabetes 2016, [place] [employer]. Diabetes Care. 2016.39(Suppl 1). Performed By: #### 2 777-1, 68765-8, , [facility] ####[facility] LABORATORYIA [id number] [place] [address] [place] Potassium [Moles/Vol] 3.9 mmol/L Normal 3.7-5.1 [facility] Comment on above: Order Comment: Speci men Type: BLOOD SPECIMEN Performed By: #### 2 777-1, 70013-1, , [facility] ####[facility] LABORATORYCLIA [id number] [place] [address] [place] Sodium [Moles/Vol] 151 mmol/L High 136-144 [facility] Comment on above: Order Comment: Speci men Type: BLOOD SPECIMEN Performed By: #### 2 777-1, 45983-4, , [facility] ####[facility]ORATORYCLIA [id number] [address] Urea nitrogen [Mass/Vol] 27 mg/dL High 9-24 [facility] Comment on above: Order Comment: Speci men Type: BLOOD SPECIMEN Performed By: #### 2 777-1, 82621-3, , [facility] ####[facility]ORATORYCLIA [id number] [address] CASE MANAGEMon 06-10-2021 CASE MANAGEM Normal [facility] CBC panel Auto (Bld)on 06-10 Erythrocyte distribution width (RBC) [Ratio] 16.2 % High 11.5-15.0 [facility] Comment on above: Order Comment: Speci men Type: BLOOD SPECIMEN Performed By: #### 5 8410-2 ####[facility]ORATORYCLIA [id number] [address] Hematocrit (Bld) [Volume fraction] 34.8 % Low 39.0-51.0 [facility] Comment on above: Order Comment: Speci men Type: BLOOD SPECIMEN Performed By: #### 5 8410-2 ####[facility]ATORYCLIA [id number] [address] Hemoglobin (Bld) [Mass/Vol] 10.2 g/dL Low 13.0-17.0 [facility] Comment on above: Order Comment: Speci men Type: BLOOD SPECIMEN Performed By: #### 5 8410-2 ####[facility]ATORYCLIA [id number] [address] MCH (RBC) [Entitic mass] 27.1 pg Normal 26.0-34.0 [facility] Comment on above: Order Comment: Speci men Type: BLOOD SPECIMEN Performed By: #### 5 8410-2 ####[facility]ATORYCLIA [id number] [address] MCHC (RBC) [Mass/Vol] 29.3 g/dL Low 30.5-36.0 [facility] Comment on above: Order Comment: Speci men Type: BLOOD SPECIMEN Performed By: #### 5 8410-2 ####[facility]ATORYCLIA [id number] [address] MCV (RBC) [Entitic vol] 92.6 fL Normal 80.0-100.0 [facility] Comment on above: Order Comment: Speci men Type: BLOOD SPECIMEN Performed By: #### 5 8410-2 ####[facility]ATORYCLIA [id number] [address] Nucleated RBC (Bld) [#/Vol] 10*3/uL Normal <0.01 [facility] Comment on above: Order Comment: Speci men Type: BLOOD SPECIMEN Performed By: #### 5 8410-2 ####[facility]ORYCLIA [id number] [address] Platelet mean volume (Bld) [Entitic vol] 10.4 fL Normal 9.0-12.7 [facility] Comment on above: Order Comment: Speci men Type: BLOOD SPECIMEN Performed By: #### 5 8410-2 ####[facility]ATORYCLIA [id number] [address] Platelets (Bld) [#/Vol] 206 10*3/uL Normal 150-400 [facility] Comment on above: Order Comment: Speci men Type: BLOOD SPECIMEN Performed By: #### 5 8410-2 ####[facility]ORYCLIA [id number] [address] RBC (Bld) [#/Vol] 3.76 10*6/uL Low 4.20-6.00 [facility] Comment on above: Order Comment: Speci men Type: BLOOD SPECIMEN Performed By: #### 5 8410-2 ####[facility]ORATORYCLIA [id number] [place] [address] [facility] WBC (Bld) [#/Vol] 11.36 10*3/uL High 3.70-11.00 [facility] Comment on above: Order Comment: Speci men Type: BLOOD SPECIMEN Performed By: #### 5 8410-2 ####[facility]ORYCL[facility] [id number] [address] HEPATIC FUNCTION PNLon 06-10 Albumin [Mass/Vol] 3.1 g/dL Low 3.9-4.9 [facility] Comment on above: Order Comment: Speci men Type: BLOOD SPECIMEN Performed By: #### 2 777-1, 30807-3, , HFP ####[facility] LABORATORYCLIA [id number] [place], [place] [id number] [place] [address] ALP [Catalytic activity/Vol] 73 U/L Normal 38-113 [facility] Comment on above: Order Comment: Speci men Type: BLOOD SPECIMEN Performed By: #### 2 777-1, 68537-6, , HFP ####[facility]ORYCL[facility] [id number] [address] ALT With P-5'-P [Catalytic activity/Vol] 64 U/L High 10-54 [facility] Comment on above: Order Comment: Speci men Type: BLOOD SPECIMEN Performed By: #### 2 777-1, 73519-1, , HFP ####[facility]ATORYCLIA [id number] [place], [place] [id number] [place] [address] AST With P-5'-P [Catalytic activity/Vol] 44 U/L High 14-40 [facility] Comment on above: Order Comment: Speci men Type: BLOOD SPECIMEN Performed By: #### 2 777-1, 33040-0, , HFP ####[facility]ORYCLIA [id number] [facility] [address] [address] Bilirubin [Mass/Vol] 0.5 mg/dL Normal 0.2-1.3 [facility] Comment on above: Order Comment: Speci men Type: BLOOD SPECIMEN Performed By: #### 2 777-1, 39886-1, , [facility] ####[facility] LABORATORYCLIA [id number] [address] Bilirubin.conjugated [Mass/Vol] mg/dL Normal <0.2 [facility] Comment on above: Order Comment: Speci men Type: BLOOD SPECIMEN Performed By: #### 2 777-1, 85241-2, , [facility] ####[facility] LABORATORYCLIA [id number] [address] Protein [Mass/Vol] 5.7 g/dL Low 6.3-8.0 [facility] Comment on above: Order Comment: Speci men Type: BLOOD SPECIMEN Performed By: #### 2 777-1, , , [facility] ####[facility] LABORATORYCLIA [id number] [address] LEVETIRACETAMon 06-10-2021 levETIRAcetam [Mass/Vol] 57.7 ug/mL [...] developed and its performance characteristics determined by [facility]'s [facility] [place] ( [facility]). It has not been cleared or approved by the FDA. [facility] is regulated under CLIA as qualified to perform high complexity testing. This test is used for clinical purposes. It should not be regarded as investigational or for research. Performed By: #### L EMILYET ####[facility] REFERENCE LABCLIA [id number] [place] [address] [place] Magnesium SerPl-mCncon 06-10 Magnesium [Mass/Vol] 2.7 mg/dL High 1.7-2.3 [facility] Comment on above: Order Comment: Speci men Type: BLOOD SPECIMEN Performed By: #### 2 777-1, 40068-5, , [facility] ####[facility] LABORATORYCLIA [id number] [place] [address] [place] Phosphate SerPl-ncon 06-10 Phosphate [Mass/Vol] 1.8 mg/dL Low 2.7-4.8 [facility] Comment on above: Order Comment: Speci men Type: BLOOD SPECIMEN Performed By: #### 2 777-1, 15213-7, , [facility] ####[facility] LABORATORYCLIA [id number] [place] [address] [place] ALLIED HEALTHon 06-09-2021 [...] #### 2 4321-2, 2776-05, ####[facility]ORATORYCLIA [id number] [place] [address] [place] Calcium [Mass/Vol] 8.3 mg/dL Low 8.5-10.2 [facility] Comment on above: Order Comment: Speci men Type: BLOOD SPECIMEN Performed By: #### 2 4321-2, 2776-05, ####[facility]ORATORYCLIA [id number] [place] [address] [place] Chloride [Moles/Vol] 116 mmol/L High 97-105 [facility] Comment on above: Order Comment: Speci men Type: BLOOD SPECIMEN Performed By: #### 2 4321-2, 2776-05, ####[facility]ORATORYCLIA [id number] [place] [address] [place] CO2 [Moles/Vol] 27 mmol/L Normal 22-30 [facility] Comment on above: Order Comment: Speci men Type: BLOOD SPECIMEN Performed By: #### 2 4321-2, 2776-05, ####[facility]ORATORYCLIA [id number] [address] [place] Creatinine [Mass/Vol] 0.70 mg/dL Low 0.73-1.22 [facility] Comment on above: Order Comment: Speci men Type: BLOOD SPECIMEN Performed By: #### 2 4321-2, 2776-05, ####[facility]ORATORYCLIA [id number] [address] [place] GFR/1.73 sq M.predicted [...] #### 2 4321-2, 2776-05, ####[facility]ORATORYCLIA [id number] [place] [address] [place] Glucose [Mass/Vol] 123 mg/dL High 74-99 [facility] Comment on above: Order Comment: Speci men Type: BLOOD SPECIMEN Result Comment: The [place] [employer] (ADA) provides guidance for cutoff [...] Standards of Medical Care in Diabetes 2016, [place] [employer]. Diabetes Care. 2016.39(Suppl 1). Performed By: #### 2 4321-2, 2776-05, ####[facility] LABORATORYCLIA [id number] [address] STATES OF [facility] Potassium [Moles/Vol] 3.5 mmol/L Low 3.7-5.1 [facility] Comment on above: Order Comment: Speci men Type: BLOOD SPECIMEN Performed By: #### 2 1-2, 2776-05, ####[facility] LABORATORYCLIA [id number] [address] STATES [facility] Sodium [Moles/Vol] 151 mmol/L High 136-144 [facility] Comment on above: Order Comment: Speci men Type: BLOOD SPECIMEN Performed By: #### 2 1-2, 2776-05, ####[facility] LABORATORYCLIA [id number] [address] [place] Urea nitrogen [Mass/Vol] 39 mg/dL High 9-24 [facility] Comment on above: Order Comment: Speci men Type: BLOOD SPECIMEN Performed By: #### 2 4321-2, 2776-05, ####[facility] LABORATORYCLIA [id number] [address] OF [facility] CBC panel Auto (Bld)on 06-09 Erythrocyte distribution width (RBC) [Ratio] 16.2 % High 11.5-15.0 [facility] Comment on above: Order Comment: Speci men Type: BLOOD SPECIMEN Performed By: #### 5 8410-2 ####[facility] LABORATORYCLIA [id number] [address] Hematocrit (Bld) [Volume fraction] 33.7 % Low 39.0-51.0 [facility] Comment on above: Order Comment: Speci men Type: BLOOD SPECIMEN Performed By: #### 5 8410-2 ####[facility]ORATORYCLIA [id number] [address] Hemoglobin (Bld) [Mass/Vol] 10.2 g/dL Low 13.0-17.0 [facility] Comment on above: Order Comment: Speci men Type: BLOOD SPECIMEN Performed By: #### 5 8410-2 ####[facility]ORATORYCLIA [id number] [address] MCH (RBC) [Entitic mass] 27.4 pg Normal 26.0-34.0 [facility] Comment on above: Order Comment: Speci men Type: BLOOD SPECIMEN Performed By: #### 5 8410-2 ####[facility]ORATORYCLIA [id number] [address] MCHC (RBC) [Mass/Vol] 30.3 g/dL Low 30.5-36.0 [facility] Comment on above: Order Comment: Speci men Type: BLOOD SPECIMEN Performed By: #### 5 8410-2 ####[facility]ORATORYCLIA [id number] [address] MCV (RBC) [Entitic vol] 90.6 fL Normal 80.0-100.0 [facility] Comment on above: Order Comment: Speci men Type: BLOOD SPECIMEN Performed By: #### 5 8410-2 ####[facility] LABORATORYCLIA [id number] [address] Nucleated RBC (Bld) [#/Vol] 10*3/uL Normal <0.01 [facility] Comment on above: Order Comment: Speci men Type: BLOOD SPECIMEN Performed By: #### 5 8410-2 ####[facility]ORATORYCLIA [id number] [address] Platelet mean volume (Bld) [Entitic vol] 10.3 fL Normal 9.0-12.7 [facility] Comment on above: Order Comment: Speci men Type: BLOOD SPECIMEN Performed By: #### 5 8410-2 ####[facility]ORATORYCLIA [id number] [address] Platelets (Bld) [#/Vol] 219 10*3/uL Normal 150-400 [facility] Comment on above: Order Comment: Speci men Type: BLOOD SPECIMEN Performed By: #### 5 8410-2 ####[facility]ORATORYCLIA [id number] [address] RBC (Bld) [#/Vol] 3.72 10*6/uL Low 4.20-6.00 [facility] Comment on above: Order Comment: Speci men Type: BLOOD SPECIMEN Performed By: #### 5 8410-2 ####[facility]ORATORYCLIA [id number] [address] WBC (Bld) [#/Vol] 13.02 10*3/uL High 3.70-11.00 [facility] Comment on above: Order Comment: Speci men Type: BLOOD SPECIMEN Performed By: #### 5 8410-2 ####[facility]ORATORYCLIA [id number] [address] CONSULT PROGon 06-09-2021 CONSULT PROG Normal [facility] CONSULT PROG Normal [facility] CT BRAIN WO IVCONon 06-09-[address] BRAIN WO IVCON Normal [facility] Magnesium SerPl-mCncon 06-09 Magnesium [Mass/Vol] 2.8 mg/dL High 1.7-2.3 [facility] Comment on above: Order Comment: Speci men Type: BLOOD SPECIMEN Performed By: #### 2 4321-2, 2777-1, 87997-6 ####[facility] LABORATORYCLIA [id number] [address] NURSING PROGon 06-09-2021 NURSING PROG Normal [facility] NUTRITIONon 06-09-2021 NUTRITION Normal [facility] PT EDon 06-09-2021 PT ED Normal [facility] Phosphate SerPl-mCncon 06-09 Phosphate [Mass/Vol] 2.2 mg/dL Low 2.7-4.8 [facility] Comment on above: Order Comment: Speci men Type: BLOOD SPECIMEN Performed By: #### 2 4321-2, 2777-1, 05207-9 ####[facility]ORATORYCLIA [id number] [address] Vancomycin random [Mass/Vol] on 06-09-2021 Vancomycin [Mass/Vol] 18.9 ug/mL Normal 10.0-20.0 [facility] Comment on above: Order Comment: Speci men Type: BLOOD SPECIMEN Result Comment: Refe rence ranges and high/low indicator flags are provided as general guidelines only. The treating physician must determine appropriate target levels/dosing based on the specific clinical situation. Performed By: #### 4 091-5 ####[facility]ORATORYCLIA [id number] [address] XR ABD 2V SUPINE W UPR/DECUB [...] 1 Rare Staphylococcus saccharolyticus Identification performed by [facility] [employer] See scanned document for susceptibility report Normal [facility] Comment on above: Performed By: #### 6 462-6, 635-3 ####[facility] LABORATORYCLIA [id number] [place] [address] [place] Bacteria Wnd Culton 06-08-19 22 Bacteria identified Cx Nom (Wound) CULTURE, INTRAOPERATIVE HARDWARE: No growth 5 days GRAM STAIN: Not performed on specimen type Normal [facility] Comment on above: Performed By: #### 6 462-6, 635-3 ####[facility]ORATORYCLIA [id number] [place] [address] [place] Basic metabolic 2000 panelon 06-08-2021 Anion gap [Moles/Vol] 9 mmol/L Normal 9-18 [facility] Comment on above: Order Comment: Speci men Type: BLOOD SPECIMEN Performed By: #### 2 4321-2, 2777-1, ####[facility]ORATORYCLIA [id number] [place] [address] [place] Calcium [Mass/Vol] 8.7 mg/dL Normal 8.5-10.2 [facility] Comment on above: Order Comment: Speci men Type: BLOOD SPECIMEN Performed By: #### 2 4321-2, 2777-, ####[facility]ORATORYCLIA [id number] [place] [address] [place] Chloride [Moles/Vol] 113 mmol/L High 97-105 [facility] Comment on above: Order Comment: Speci men Type: BLOOD SPECIMEN Performed By: #### 2 4321-2, 2776-05, ####[facility]ORATORYCLIA [id number] [place] [address] [place] CO2 [Moles/Vol] 26 mmol/L Normal 22-30 [facility] Comment on above: Order Comment: Speci men Type: BLOOD SPECIMEN Performed By: #### 2 4321-2, 2776-05, ####[facility]ORATORYCLIA [id number] [place] [address] [place] Creatinine [Mass/Vol] 0.68 mg/dL Low 0.73-1.22 [facility] Comment on above: Order Comment: Speci men Type: BLOOD SPECIMEN Performed By: #### 2 4321-2, 2776-05, ####[facility]ORATORYCLIA [id number] [address] [place] GFR/1.73 sq M.predicted [...] #### 2 4321-2, 2776-05, ####[facility]ORATORYCLIA [id number] [place] [address] [place] Glucose [Mass/Vol] 146 mg/dL High 74-99 [facility] Comment on above: Order Comment: Speci men Type: BLOOD SPECIMEN Result Comment: The [place] Diabetes Association (ADA) provides guidance for cutoff [...] Standards of Medical Care in Diabetes 2016, [place] [employer]. Diabetes Care. 2016.39(Suppl 1). Performed By: #### 2 4321-2, 2776-05, ####[facility]ORATORYCLIA [id number] [address] STATES OF [facility] Potassium [Moles/Vol] 3.6 mmol/L Low 3.7-5.1 [facility] Comment on above: Order Comment: Speci men Type: BLOOD SPECIMEN Performed By: #### 2 1-2, 2776-05, ####[facility]ORATORYCLIA [id number] [address] STATES [facility] Sodium [Moles/Vol] 148 mmol/L High 136-144 [facility] Comment on above: Order Comment: Speci men Type: BLOOD SPECIMEN Performed By: #### 2 4321-2, 2776-05, ####[facility] LABORATORYCLIA [id number] [address] [place] Urea nitrogen [Mass/Vol] 36 mg/dL High 9-24 [facility] Comment on above: Order Comment: Speci men Type: BLOOD SPECIMEN Performed By: #### 2 4321-2, 2776-05, ####[facility] LABORATORYCLIA [id number] [address] OF [facility] CASE MANAGEMon 06-08-2021 CASE MANAGEM Normal [facility] CBC panel Auto (Bld)on 06-08 Erythrocyte distribution width (RBC) [Ratio] 16.0 % High 11.5-15.0 [facility] Comment on above: Order Comment: Speci men Type: BLOOD SPECIMEN Performed By: #### 5 8410-2 ####[facility] LABORATORYCLIA [id number] [address] Hematocrit (Bld) [Volume fraction] 38.4 % Low 39.0-51.0 [facility] Comment on above: Order Comment: Speci men Type: BLOOD SPECIMEN Performed By: #### 5 8410-2 ####[facility]ORATORYCLIA [id number] [address] Hemoglobin (Bld) [Mass/Vol] 12.1 g/dL Low 13.0-17.0 [facility] Comment on above: Order Comment: Speci men Type: BLOOD SPECIMEN Performed By: #### 5 8410-2 ####[facility] LABORATORYCLIA [id number] [address] MCH (RBC) [Entitic mass] 28.3 pg Normal 26.0-34.0 [facility] Comment on above: Order Comment: Speci men Type: BLOOD SPECIMEN Performed By: #### 5 8410-2 ####[facility]ORATORYCLIA [id number] [address] MCHC (RBC) [Mass/Vol] 31.5 g/dL Normal 30.5-36.0 [facility] Comment on above: Order Comment: Speci men Type: BLOOD SPECIMEN Performed By: #### 5 8410-2 ####[facility] LABORATORYCLIA [id number] [address] MCV (RBC) [Entitic vol] 89.9 fL Normal 80.0-100.0 [facility] Comment on above: Order Comment: Speci men Type: BLOOD SPECIMEN Performed By: #### 5 8410-2 ####[facility]ORATORYCLIA [id number] [address] Nucleated RBC (Bld) [#/Vol] 10*3/uL Normal <0.01 [facility] Comment on above: Order Comment: Speci men Type: BLOOD SPECIMEN Performed By: #### 5 8410-2 ####[facility]ORATORYCLIA [id number] [address] Platelet mean volume (Bld) [Entitic vol] 10.3 fL Normal 9.0-12.7 [facility] Comment on above: Order Comment: Speci men Type: BLOOD SPECIMEN Performed By: #### 5 8410-2 ####[facility] LABORATORYCLIA [id number] [address] STATES [facility] Platelets (Bld) [#/Vol] 236 10*3/uL Normal 150-400 [facility] Comment on above: Order Comment: Speci men Type: BLOOD SPECIMEN Performed By: #### 5 8410-2 ####[facility] LABORATORYCLIA [id number] [address] RBC (Bld) [#/Vol] 4.27 10*6/uL Normal 4.20-6.00 [facility] Comment on above: Order Comment: Speci men Type: BLOOD SPECIMEN Performed By: #### 5 8410-2 ####[facility]ORATORYCLIA [id number] [address] WBC (Bld) [#/Vol] 11.06 10*3/uL High 3.70-11.00 [facility] Comment on above: Order Comment: Speci men Type: BLOOD SPECIMEN Performed By: #### 5 8410-2 ####[facility]ORATORYCLIA [id number] [address] CONSULT PROGon 06-08-2021 CONSULT PROG Normal [facility] CT BRAIN WO IVCONon 06-08-[address] BRAIN WO IVCON Normal [facility] Magnesium SerPl-mCncon 06-08 Magnesium [Mass/Vol] 2.8 mg/dL High 1.7-2.3 [facility] Comment on above: Order Comment: Speci men Type: BLOOD SPECIMEN Performed By: #### 2 4321-2, 2777-1, 24077-1 ####[facility] LABORATORYCLIA [id number] [address] Microorganism Spec Culton Microorganism identified Cx Nom (Unsp spec) CULTURE, FUNGAL: No Fungus isolated after 28 days FUNGAL SMEAR: No fungus seen Normal [facility] Comment on above: Performed By: #### 1 1475-1 ####[facility] LABORATORYCLIA [id number] [address] NURSING PROGon 06-08-2021 NURSING PROG Normal [facility] OPERATIVE NOon 06-08-2021 OPERATIVE NO Normal [facility] OPERATIVE NO [facility] PT panel Coag (PPP)on 2021 INR Coag (PPP) [Relative time] 1.1 {INR} Normal 0.9-1.3 [facility] Comment on above: Order Comment: Speci men Type: BLOOD SPECIMEN Result Comment: Yris min K Antagonist (VKA) Therapeutic Range: INR 2 to 3 (Target INR of 2.5)Note: For patients treated with VKA drugs, such as warfarin, the [place] [employer] 2012 Guideline recommends [...] al. Chest 2012, 141:7S-47SAlba MURRY et al. [facility] 2017, 70: 252-289 Performed By: #### 3 4528-0, 70361-0 ####[facility] LABORATORYCLIA [id number] [address] PT Coag (PPP) [Time] 11.9 s Normal 9.7-13.0 [facility] Comment on above: Order Comment: Speci men Type: BLOOD SPECIMEN Performed By: #### 3 4528-0, 86003-1 ####[facility] LABORATORYCLIA [id number] [address] OF [facility] Phosphate SerPl-mCncon 06-08 Phosphate [Mass/Vol] 2.3 mg/dL Low 2.7-4.8 [facility] Comment on above: Order Comment: Speci men Type: BLOOD SPECIMEN Performed By: #### 2 4321-2, 2777-1, 92978-7 ####[facility] LABORATORYCLIA [id number] [address] aPTT PPPon 06-08-2021 aPTT Coag (PPP) [Time] 24.2 s Normal 23.0-32.4 [facility] Comment on above: Order Comment: Speci men Type: BLOOD SPECIMEN Performed By: #### 3 4528-0, 98242-0 ####[facility] LABORATORYCLIA [id number] [address] OF [facility] ALLIED HEALTHon 06-07-2021 ALLIED HEALTH [...] By: #### 6 06-4 ####[facility] LABORATORYCLIA [id number] [address] OF [facility] Basic metabolic 2000 panelon 06-07-2021 Anion gap [Moles/Vol] 9 mmol/L Normal 9-18 [facility] Comment on above: Order Comment: Speci men Type: BLOOD SPECIMEN Performed By: #### 1 9123-9, 2777-1, 04754-8 ####[facility] LABORATORYCLIA [id number] [address] STATES OF [facility] Calcium [Mass/Vol] 8.8 mg/dL Normal 8.5-10.2 [facility] Comment on above: Order Comment: Speci men Type: BLOOD SPECIMEN Performed By: #### 1 9123-9, 2777-1, 75507-6 ####[facility] LABORATORYCLIA [id number] [address] [place] Chloride [Moles/Vol] 111 mmol/L High 97-105 [facility] Comment on above: Order Comment: Speci men Type: BLOOD SPECIMEN Performed By: #### 1 9123-9, 2776-05, 49532-3 ####[facility]ORATORYCLIA [id number] [address] CO2 [Moles/Vol] 27 mmol/L Normal 22-30 [facility] Comment on above: Order Comment: Speci men Type: BLOOD SPECIMEN Performed By: #### 1 9123-9, 27711-04, 03656-9 ####[facility] LABORATORYCLIA [id number] [address] OF [facility] Creatinine [Mass/Vol] 0.66 mg/dL Low 0.73-1.22 [facility] Comment on above: Order Comment: Speci men Type: BLOOD SPECIMEN Performed By: #### 1 9123-9, 2777, 17899-9 ####[facility] LABORATORYCLIA [id number] [address] [place] GFR/1.73 sq M.predicted [...] GFR. Performed By: #### 1 9123-9, 2776-05, 29077-3 ####[facility] LABORATORYCLIA [id number] [place] [address] [place] Glucose [Mass/Vol] 123 mg/dL High 74-99 [facility] Comment on above: Order Comment: Speci men Type: BLOOD SPECIMEN Result Comment: The [place] [employer] (ADA) provides guidance for cutoff [...] Standards of Medical Care in Diabetes 2016, [place] [employer]. Diabetes Care. 2016.39(Suppl 1). Performed By: #### 1 9123-9, 2776-05, ####[facility]ORATORYCLIA [id number] [address] STATES OF [facility] Potassium [Moles/Vol] 3.6 mmol/L Low 3.7-5.1 [facility] Comment on above: Order Comment: Speci men Type: BLOOD SPECIMEN Performed By: #### 1 9123-9, 2776-05, 45396-4 ####[facility] LABORATORYCLIA [id number] [address] [place] Sodium [Moles/Vol] 147 mmol/L High 136-144 [facility] Comment on above: Order Comment: Speci men Type: BLOOD SPECIMEN Performed By: #### 1 9123-9, 2777-1, 14653-3 ####[facility]ORYCLIA [id number] [address] [place] Urea nitrogen [Mass/Vol] 30 mg/dL High 9-24 [facility] Comment on above: Order Comment: Speci men Type: BLOOD SPECIMEN Performed By: #### 1 9123-9, 2777-1, 02275-3 ####[facility]ORYCLIA [id number] [address] STATES [facility] CBC W Auto Differential pane l (Bld)on 06-07-2021 Basophils (Bld) [#/Vol] 10*3/uL Normal <0.11 [facility] Comment on above: Order Comment: Speci men Type: BLOOD SPECIMEN Performed By: #### 5 7021-8 ####[facility]ORYCLIA [id number] [address] Basophils/100 WBC (Bld) 0.2 % Normal [facility] Comment on above: Order Comment: Speci men Type: BLOOD SPECIMEN Performed By: #### 5 7021-8 ####[facility]ORYCLIA [id number] [address] Differential cell count method Nom (Bld) Auto Normal [facility] Comment on above: Order Comment: Speci men Type: BLOOD SPECIMEN Performed By: #### 5 7021-8 ####[facility]ORYCLIA [id number] [address] [place] Eosinophils (Bld) [#/Vol] 0.06 10*3/uL Normal <0.46 [facility] Comment on above: Order Comment: Speci men Type: BLOOD SPECIMEN Performed By: #### 5 7021-8 ####[facility]ORYCLIA [id number] [address] Eosinophils/100 WBC (Bld) 0.6 % Normal [facility] Comment on above: Order Comment: Speci men Type: BLOOD SPECIMEN Performed By: #### 5 7021-8 ####[facility]ATORYCLIA [id number] [address] Erythrocyte distribution width (RBC) [Ratio] 15.8 % High 11.5-15.0 [facility] Comment on above: Order Comment: Speci men Type: BLOOD SPECIMEN Performed By: #### 5 7021-8 ####[facility] LABORATORYCLIA [id number] [address] Hematocrit (Bld) [Volume fraction] 40.4 % Normal 39.0-51.0 [facility] Comment on above: Order Comment: Speci men Type: BLOOD SPECIMEN Performed By: #### 5 7021-8 ####[facility] LABORATORYCLIA [id number] [address] Hemoglobin (Bld) [Mass/Vol] 12.4 g/dL Low 13.0-17.0 [facility] Comment on above: Order Comment: Speci men Type: BLOOD SPECIMEN Performed By: #### 5 7021-8 ####[facility] LABORATORYCLIA [id number] [address] IMMATURE GRAN % 0.7 % Normal [facility] Comment on above: Order Comment: Speci men Type: BLOOD SPECIMEN Performed By: #### 5 7021-8 ####[facility] LABORATORYCLIA [id number] [address] IMMATURE GRAN ABS 0.07 k/uL Normal <0.10 [facility] Comment on above: Order Comment: Speci men Type: BLOOD SPECIMEN Performed By: #### 5 7021-8 ####[facility] LABORATORYCLIA [id number] [address] Lymphocytes (Bld) [#/Vol] 1.43 10*3/uL Normal 1.00-4.00 [facility] Comment on above: Order Comment: Speci men Type: BLOOD SPECIMEN Performed By: #### 5 7021-8 ####[facility] LABORATORYCLIA [id number] [address] Lymphocytes/100 WBC (Bld) 14.1 % Normal [facility] Comment on above: Order Comment: Speci men Type: BLOOD SPECIMEN Performed By: #### 5 7021-8 ####[facility] LABORATORYCLIA [id number] [address] MCH (RBC) [Entitic mass] 27.6 pg Normal 26.0-34.0 [facility] Comment on above: Order Comment: Speci men Type: BLOOD SPECIMEN Performed By: #### 5 7021-8 ####[facility] LABORATORYCLIA [id number] [address] MCHC (RBC) [Mass/Vol] 30.7 g/dL Normal 30.5-36.0 [facility] Comment on above: Order Comment: Speci men Type: BLOOD SPECIMEN Performed By: #### 5 7021-8 ####[facility] LABORATORYCLIA [id number] [address] MCV (RBC) [Entitic vol] 89.8 fL Normal 80.0-100.0 [facility] Comment on above: Order Comment: Speci men Type: BLOOD SPECIMEN Performed By: #### 5 7021-8 ####[facility] LABORATORYCLIA [id number] [address] Monocytes (Bld) [#/Vol] 0.82 10*3/uL Normal <0.87 [facility] Comment on above: Order Comment: Speci men Type: BLOOD SPECIMEN Performed By: #### 5 7021-8 ####[facility] LABORATORYCLIA [id number] [address] Monocytes/100 WBC (Bld) 8.1 % Normal [facility] Comment on above: Order Comment: Speci men Type: BLOOD SPECIMEN Performed By: #### 5 7021-8 ####[facility] LABORATORYCLIA [id number] [address] Neutrophils (Bld) [#/Vol] 7.74 10*3/uL High 1.45-7.50 [facility] Comment on above: Order Comment: Speci men Type: BLOOD SPECIMEN Performed By: #### 5 7021-8 ####[facility] LABORATORYCLIA [id number] [address] Neutrophils/100 WBC (Bld) 76.3 % Normal [facility] Comment on above: Order Comment: Speci men Type: BLOOD SPECIMEN Performed By: #### 5 7021-8 ####[facility]ORATORYCLIA [id number] [address] Nucleated RBC (Bld) [#/Vol] 10*3/uL Normal <0.01 [facility] Comment on above: Order Comment: Speci men Type: BLOOD SPECIMEN Performed By: #### 5 7021-8 ####[facility] LABORATORYCLIA [id number] [address] Nucleated RBC/100 WBC (Bld) [Ratio] 0.0 /100 WBC Normal 0.0 [facility] Comment on above: Order Comment: Speci men Type: BLOOD SPECIMEN Performed By: #### 5 7021-8 ####[facility] LABORATORYCLIA [id number] [address] Platelet mean volume (Bld) [Entitic vol] 10.4 fL Normal 9.0-12.7 [facility] Comment on above: Order Comment: Speci men Type: BLOOD SPECIMEN Performed By: #### 5 7021-8 ####[facility] LABORATORYCLIA [id number] [address] Platelets (Bld) [#/Vol] 236 10*3/uL Normal 150-400 [facility] Comment on above: Order Comment: Speci men Type: BLOOD SPECIMEN Performed By: #### 5 7021-8 ####[facility]ATORYCLIA [id number] [address] RBC (Bld) [#/Vol] 4.50 10*6/uL Normal 4.20-6.00 [facility] Comment on above: Order Comment: Speci men Type: BLOOD SPECIMEN Performed By: #### 5 7021-8 ####[facility] LABORATORYCLIA [id number] [address] WBC (Bld) [#/Vol] 10.14 10*3/uL Normal 3.70-11.00 [facility] Comment on above: Order Comment: Speci men Type: BLOOD SPECIMEN Performed By: #### 5 7021-8 ####[facility] LABORATORYCLIA [id number] [address] CBC panel Auto (Bld)on 06-07 Erythrocyte distribution width (RBC) [Ratio] 15.8 % High 11.5-15.0 [facility] Comment on above: Order Comment: Speci men Type: BLOOD SPECIMEN Performed By: #### 5 8410-2 ####[facility] LABORATORYCLIA [id number] [address] Hematocrit (Bld) [Volume fraction] 40.0 % Normal 39.0-51.0 [facility] Comment on above: Order Comment: Speci men Type: BLOOD SPECIMEN Performed By: #### 5 8410-2 ####[facility] LABORATORYCLIA [id number] [address] Hemoglobin (Bld) [Mass/Vol] 12.3 g/dL Low 13.0-17.0 [facility] Comment on above: Order Comment: Speci men Type: BLOOD SPECIMEN Performed By: #### 5 8410-2 ####[facility] LABORATORYCLIA [id number] [address] MCH (RBC) [Entitic mass] 27.3 pg Normal 26.0-34.0 [facility] Comment on above: Order Comment: Speci men Type: BLOOD SPECIMEN Performed By: #### 5 8410-2 ####[facility] LABORATORYCLIA [id number] [address] MCHC (RBC) [Mass/Vol] 30.8 g/dL Normal 30.5-36.0 [facility] Comment on above: Order Comment: Speci men Type: BLOOD SPECIMEN Performed By: #### 5 8410-2 ####[facility]ORATORYCLIA [id number] [address] MCV (RBC) [Entitic vol] 88.7 fL Normal 80.0-100.0 [facility] Comment on above: Order Comment: Speci men Type: BLOOD SPECIMEN Performed By: #### 5 8410-2 ####[facility] LABORATORYCLIA [id number] [address] Nucleated RBC (Bld) [#/Vol] 10*3/uL Normal <0.01 [facility] Comment on above: Order Comment: Speci men Type: BLOOD SPECIMEN Performed By: #### 5 8410-2 ####[facility] LABORATORYCLIA [id number] [address] Platelet mean volume (Bld) [Entitic vol] 10.0 fL Normal 9.0-12.7 [facility] Comment on above: Order Comment: Speci men Type: BLOOD SPECIMEN Performed By: #### 5 8410-2 ####[facility] LABORATORYCLIA [id number] [address] Platelets (Bld) [#/Vol] 234 10*3/uL Normal 150-400 [facility] Comment on above: Order Comment: Speci men Type: BLOOD SPECIMEN Performed By: #### 5 8410-2 ####[facility] LABORATORYCLIA [id number] [address] RBC (Bld) [#/Vol] 4.51 10*6/uL Normal 4.20-6.00 [facility] Comment on above: Order Comment: Speci men Type: BLOOD SPECIMEN Performed By: #### 5 8410-2 ####[facility] LABORATORYCLIA [id number] [place] [address] [place] WBC (Bld) [#/Vol] 11.47 10*3/uL High 3.70-11.00 [facility] Comment on above: Order Comment: Speci men Type: BLOOD SPECIMEN Performed By: #### 5 8410-2 ####[facility] LABORATORYCLIA [id number] [address] [place] CONSULT PROGon 06-07-2021 CONSULT PROG Normal [facility] CONSULT PROG Normal [facility] CSF MANUAL DIFFon 06-07-2021 DIF TTL, CSF 92 cells counted Normal [facility] Comment on above: Order Comment: Speci men Type: CEREBROSPINAL FLUID Performed By: #### 3 4563-7, [id number], [id number] ####[facility] LABORATORYCLIA [id number] [address] [place] EOSIN%, CSF 1 % Normal [facility] Comment on above: Order Comment: Speci men Type: CEREBROSPINAL FLUID Performed By: #### 3 4563-7, [id number], [id number] ####[facility]ORATORYCLIA [id number] [place], [place] [address] [place] [address] [place] LYMPH%, CSF 21 % Low 50-90 [facility] Comment on above: Order Comment: Speci men Type: CEREBROSPINAL FLUID Performed By: #### 3 4563-7, [id number], [id number] ####[facility] LABORATORYCLIA [id number] [address] [place] MACRO%, CSF 27 % High <1 [facility] Comment on above: Order Comment: Speci men Type: CEREBROSPINAL FLUID Result Comment: Tati ected result: Previously reported as 22 % on 06/07/2021 at 1:49 PM EST. Performed By: #### 3 4563-7, [id number], [id number] ####[facility]ORATORYCLIA [id number] [place], [place] [address] [place] [address] [place] MONO%, CSF 36 % Normal 10-50 [facility] Comment on above: Order Comment: Speci men Type: CEREBROSPINAL FLUID Performed By: #### 3 4563-7, [id number], [id number] ####[facility] LABORATORYCLIA [id number] [address] NEUT%, CSF 11 % High 0-3 [facility] Comment on above: Order Comment: Speci men Type: CEREBROSPINAL FLUID Performed By: #### 3 4563-7, [id number], [id number] ####[facility] LABORATORYCLIA [id number] [address] OTHER CL%, CSF 4 % Normal [facility] Comment on above: Order Comment: Speci men Type: CEREBROSPINAL FLUID Result Comment: Path review to follow.Corrected result: Previously reported as 10 % on 06/07/2021 at 1:49 PM EST. Performed By: #### 3 4563-7, [id number], [id number] ####[facility] LABORATORYCLIA [id number] [address] CSF PATHOLOGIST INTERP (LAB REFLEX ORDER-NO BILL)on 06-07-2021 CSF STAFF REVIEW Negative for maligna nt cells. Rare immature myeloid or ventricular lining cells. Normal [facility] Comment on above: Order Comment: Speci men Type: CEREBROSPINAL FLUID Performed By: #### 3 4563-7, [id number], [id number] ####[facility] LABORATORYCLIA [id number] [address] Pathologist name Reviewed by Eloise rebolledo MD Normal [facility] Comment on above: Order Comment: Speci men Type: CEREBROSPINAL FLUID Performed By: #### 3 4563-7, [id number], [id number] ####[facility] LABORATORYCLIA [id number] [address] BRAIN WO IVCONon 06-07-19 CT BRAIN WO IVCON Normal [facility] CT BRAIN WO IVCON Normal [facility] Cell count panel (CSF)on Clarity (CSF) Clear Normal Clear [facility] Comment on above: Order Comment: Speci men Type: CEREBROSPINAL FLUID Performed By: #### 3 4563-7, [id number], [id number] ####[facility]ATORYCLIA [id number] [address] Clarity (Unsp spec) Not Indicated Normal Clear [facility] Comment on above: Order Comment: Speci men Type: CEREBROSPINAL FLUID Performed By: #### 3 4563-7, [id number], [id number] ####[facility]ORATORYCLIA [id number] [address] Color (CSF) Colorless Normal Colorless [facility] Comment on above: Order Comment: Speci men Type: CEREBROSPINAL FLUID Performed By: #### 3 4563-7, [id number], [id number] ####[facility]ORATORYCLIA [id number] [address] Color (Spun CSF) Not Indicated Normal Colorless [facility] Comment on above: Order Comment: Speci men Type: CEREBROSPINAL FLUID Performed By: #### 3 4563-7, [id number], [id number] ####[facility]ORATORYCLIA [id number] [address] CSF TUBE NUMBER [employer] Normal [facility] Comment on above: Order Comment: Speci men Type: CEREBROSPINAL FLUID Performed By: #### 3 4563-7, [id number], [id number] ####[facility]ORATORYCLIA [id number] [address] RBC Manual cnt (CSF) [#/Vol] 42 cells/uL High 0-5 [facility] Comment on above: Order Comment: Speci men Type: CEREBROSPINAL FLUID Performed By: #### 3 4563-7, [id number], [id number] ####[facility]ORATORYCLIA [id number] [address] WBC Manual cnt (CSF) [#/Vol] 1 cells/uL Normal 0-5 [facility] Comment on above: Order Comment: Speci men Type: CEREBROSPINAL FLUID Performed By: #### 3 4563-7, [id number], [id number] ####[facility] [facility]ORATORYCLIA [id number] [place] [address] [place] Glucose CSF-mCncon 2 [...] Glucose HK (GLUC3) [package insert V 12.0 [place]er]. [employer]ley [employer], [place], [place]. September 2015. 2. Michelle Moore, Loki H. (2015). Chapter 7: Glucose and Lactate. Marianela Rothman.(eds.), Cerebrospinal Fluid in Clinical Neurology. [place]: Procyrion. Performed By: #### 2 880-3, 2342-4 ####[facility] LABORATORYCLIA [id number] [address] [place] Lactate (Bld) [Moles/Vol]on 06-07-2021 Lactate [Moles/Vol] 0.9 mmol/L Normal 0.5-2.2 [facility] Comment on above: Order Comment: Speci men Type: BLOOD SPECIMEN Performed By: #### 3 2693-4 ####[facility] LABORATORYCLIA [id number] [address] [place] Lipase SerPl-cCncon 06-07-19 22 Lipase [Catalytic activity/Vol] 35 U/L Normal 16-61 [facility] Comment on above: Order Comment: Speci men Type: BLOOD SPECIMEN Performed By: #### 3 040-3, PROCAL ####[facility] LABORATORYCLIA [id number] [address] [place] Magnesium SerPl-ncon 06-07 Magnesium [Mass/Vol] 2.7 mg/dL High 1.7-2.3 [facility] Comment on above: Order Comment: Speci men Type: BLOOD SPECIMEN Performed By: #### 1 9123-9, 2777-1, 54705-1 ####[facility] LABORATORYCLIA [id number] [address] PROCALCITONIN (LAB)on 2021 Procalcitonin [Mass/Vol] 0.13 ng/mL High <0.09 [facility] Comment on above: Order Comment: Speci men Type: BLOOD SPECIMEN Result Comment: For a guided interpretation of test results, please visit the Change in Procalcitonin Calculator, [email or web address]. Performed By: #### 3 040-3, PROCAL ####[facility] LABORATORYCLIA [id number] [address] Phosphate SerPl-ncon 06-07 Phosphate [Mass/Vol] 1.9 mg/dL Low 2.7-4.8 [facility] Comment on above: Order Comment: Speci men Type: BLOOD SPECIMEN Performed By: #### 1 9123-9, 2777-1, 95552-6 ####[facility] LABORATORYCLIA [id number] [address] Prot CSF-ncon 06-07-2021 Protein (CSF) [Mass/Vol] 33 mg/dL Normal 15-45 [facility] Comment on above: Order Comment: Speci men Type: CEREBROSPINAL FLUID Performed By: #### 2 880-3, 2342-4 ####[facility] LABORATORYCLIA [id number] [address] OF [facility] SARS-CoV-2 RNA Resp Ql MEGAN+p robeon 06-07-2021 SARS-CoV-2 (COVID-19) RNA MEGAN+probe Ql (Resp) COVID 19 RESULT: SARS-CoV-2 (Agent of COVID-19) Not Detected by PCR. This test has been authorized by FDA under an Emergency Use Authorization (EUA). Normal [facility] Comment on above: Performed By: #### 9 4500-6 ####[facility] LABORATORYCLIA [id number] [address] TYPE AND SCREENon 06-07-2021 ABO O Normal [facility] Comment on above: Order Comment: Speci men Type: BLOOD SPECIMEN Performed By: #### T SCR ####[facility] BLOOD BANKCLIA [id number] [address] HISTORICAL AB SCR STATUS Negative Normal [facility] Comment on above: Order Comment: Speci men Type: BLOOD SPECIMEN Performed By: #### T SCR ####[facility] BLOOD BANKCLIA [id number] [address] Rh Nom (Bld) Positive Normal [facility] Comment on above: Order Comment: Speci men Type: BLOOD SPECIMEN Performed By: #### T SCR ####[facility] BLOOD BANKCLIA [id number] [address] TYPE AND SCREEN EXPIRATION 06/10/2021 23:59 Normal [facility] Comment on above: Order Comment: Speci men Type: BLOOD SPECIMEN Performed By: #### T SCR ####[facility] BLOOD BANKCLIA [id number] [address] Vancomycin random [Mass/Vol] on 06-07-2021 Vancomycin [Mass/Vol] 16.5 ug/mL Normal 10.0-20.0 [facility] Comment on above: Order Comment: Speci men Type: BLOOD SPECIMEN Result Comment: Refe rence ranges and high/low indicator flags are provided as general guidelines only. The treating physician must determine appropriate target levels/dosing based on the specific clinical situation. Performed By: #### 4 091-5 ####[facility] LABORATORYCLIA [id number] [address] XR CHEST 1V FRONTAL PORTon 0 06-07-2021 XR CHEST 1V FRONTAL PORT Normal [facility] Basic metabolic 2000 panelon 06-06-2021 Anion gap [Moles/Vol] 11 mmol/L Normal 9-18 [facility] Comment on above: Order Comment: Speci men Type: BLOOD SPECIMEN Performed By: #### 2 4321-2, , 2776-05 ####[facility] LABORATORYCLIA [id number] [place], [place] [address] [place] [address] [place] Calcium [Mass/Vol] 8.6 mg/dL Normal 8.5-10.2 [facility] Comment on above: Order Comment: Speci men Type: BLOOD SPECIMEN Performed By: #### 2 4321-2, , 2776-05 ####[facility] LABORATORYCLIA [id number] [address] STATES OF [facility] Chloride [Moles/Vol] 108 mmol/L High 97-105 [facility] Comment on above: Order Comment: Speci men Type: BLOOD SPECIMEN Performed By: #### 2 4321-2, , 2776-05 ####[facility] LABORATORYCLIA [id number] [address] [place] CO2 [Moles/Vol] 25 mmol/L Normal 22-30 [facility] Comment on above: Order Comment: Speci men Type: BLOOD SPECIMEN Performed By: #### 2 4321-2, , 2776-05 ####[facility] LABORATORYCLIA [id number] [address] [place] Creatinine [Mass/Vol] 0.76 mg/dL Normal 0.73-1.22 [facility] Comment on above: Order Comment: Speci men Type: BLOOD SPECIMEN Performed By: #### 2 4321-2, , 2776-05 ####[facility] LABORATORYCLIA [id number] [address] [place] GFR/1.73 sq M.predicted [...] 2 1-2, , 2776-05 ####[facility] LABORATORYCLIA [id number] [place] [address] [place] Glucose [Mass/Vol] 116 mg/dL High 74-99 [facility] Comment on above: Order Comment: Speci men Type: BLOOD SPECIMEN Result Comment: The [place] Diabetes Association (ADA) provides guidance for cutoff [...] Standards of Medical Care in Diabetes 2016, [place] [employer]. Diabetes Care. 2016.39(Suppl 1). Performed By: #### 2 4320-2, , 2776-05 ####[facility] LABORATORYCLIA [id number] [address] [place] Potassium [Moles/Vol] 3.5 mmol/L Low 3.7-5.1 [facility] Comment on above: Order Comment: Speci men Type: BLOOD SPECIMEN Performed By: #### 2 4320-2, , 2776-05 ####[facility] LABORATORYCLIA [id number] [address] [place] Sodium [Moles/Vol] 144 mmol/L Normal 136-144 [facility] Comment on above: Order Comment: Speci men Type: BLOOD SPECIMEN Performed By: #### 2 4321-2, , 2776-05 ####[facility] LABORATORYCLIA [id number] [address] STATES [facility] Urea nitrogen [Mass/Vol] 31 mg/dL High 9-24 [facility] Comment on above: Order Comment: Speci men Type: BLOOD SPECIMEN Performed By: #### 2 4321-2, 49863-6, 2776-05 ####[facility] LABORATORYCLIA [id number] [address] CASE MANAGEMon 06-06-2021 CASE MANAGEM Normal [facility] CBC panel Auto (Bld)on 06-06 Erythrocyte distribution width (RBC) [Ratio] 15.8 % High 11.5-15.0 [facility] Comment on above: Order Comment: Speci men Type: BLOOD SPECIMEN Performed By: #### 5 8410-2 ####[facility] LABORATORYCLIA [id number] [address] Hematocrit (Bld) [Volume fraction] 39.5 % Normal 39.0-51.0 [facility] Comment on above: Order Comment: Speci men Type: BLOOD SPECIMEN Performed By: #### 5 8410-2 ####[facility] LABORATORYCLIA [id number] [address] Hemoglobin (Bld) [Mass/Vol] 12.2 g/dL Low 13.0-17.0 [facility] Comment on above: Order Comment: Speci men Type: BLOOD SPECIMEN Performed By: #### 5 8410-2 ####[facility] LABORATORYCLIA [id number] [address] MCH (RBC) [Entitic mass] 27.8 pg Normal 26.0-34.0 [facility] Comment on above: Order Comment: Speci men Type: BLOOD SPECIMEN Performed By: #### 5 8410-2 ####[facility] LABORATORYCLIA [id number] [address] MCHC (RBC) [Mass/Vol] 30.9 g/dL Normal 30.5-36.0 [facility] Comment on above: Order Comment: Speci men Type: BLOOD SPECIMEN Performed By: #### 5 8410-2 ####[facility] LABORATORYCLIA [id number] [address] MCV (RBC) [Entitic vol] 90.0 fL Normal 80.0-100.0 [facility] Comment on above: Order Comment: Speci men Type: BLOOD SPECIMEN Performed By: #### 5 8410-2 ####[facility] LABORATORYCLIA [id number] [address] Nucleated RBC (Bld) [#/Vol] 10*3/uL Normal <0.01 [facility] Comment on above: Order Comment: Speci men Type: BLOOD SPECIMEN Performed By: #### 5 8410-2 ####[facility] LABORATORYCLIA [id number] [address] Platelet mean volume (Bld) [Entitic vol] 10.4 fL Normal 9.0-12.7 [facility] Comment on above: Order Comment: Speci men Type: BLOOD SPECIMEN Performed By: #### 5 8410-2 ####[facility] LABORATORYCLIA [id number] [address] Platelets (Bld) [#/Vol] 236 10*3/uL Normal 150-400 [facility] Comment on above: Order Comment: Speci men Type: BLOOD SPECIMEN Performed By: #### 5 8410-2 ####[facility] LABORATORYCLIA [id number] [address] RBC (Bld) [#/Vol] 4.39 10*6/uL Normal 4.20-6.00 [facility] Comment on above: Order Comment: Speci men Type: BLOOD SPECIMEN Performed By: #### 5 8410-2 ####[facility] LABORATORYCLIA [id number] [address] WBC (Bld) [#/Vol] 9.74 10*3/uL Normal 3.70-11.00 [facility] Comment on above: Order Comment: Speci men Type: BLOOD SPECIMEN Performed By: #### 5 8410-2 ####[facility] LABORATORYCLIA [id number] [place] [id number] [facility] CONSULT PROGon 06-06-2021 CONSULT PROG Normal [facility] CONSULT PROG Normal [facility] Magnesium SerPl-mCncon 06-06 Magnesium [Mass/Vol] 2.5 mg/dL High 1.7-2.3 [facility] Comment on above: Order Comment: Speci men Type: BLOOD SPECIMEN Performed By: #### 2 4321-2, 68709-6, 2777-1 ####[facility] LABORATORYCLIA [id number] [address] PT panel Coag (PPP)on 2021 INR Coag (PPP) [Relative time] 1.0 {INR} Normal 0.9-1.3 [facility] Comment on above: Order Comment: Speci men Type: BLOOD SPECIMEN Result Comment: Yris min K Antagonist (VKA) Therapeutic Range: INR 2 to 3 (Target INR of 2.5)Note: For patients treated with VKA drugs, such as warfarin, the [employer] [employer] 2012 Guideline recommends [...] al. Chest 2012, 141:7S-47SAlba MURRY, et al. [facility] 2017, 70: 252-289 Performed By: #### 3 4528-0, 64420-7 ####[facility] LABORATORYCLIA [id number] [address] PT Coag (PPP) [Time] 11.4 s Normal 9.7-13.0 [facility] Comment on above: Order Comment: Speci men Type: BLOOD SPECIMEN Performed By: #### 3 4528-0, 53148-1 ####[facility] LABORATORYCLIA [id number] [address] Phosphate SerPl-mCncon 06-06 Phosphate [Mass/Vol] 2.3 mg/dL Low 2.7-4.8 [facility] Comment on above: Order Comment: Speci men Type: BLOOD SPECIMEN Performed By: #### 2 4321-2, 20914-7, 2777-1 ####[facility] LABORATORYCLIA [id number] [address] THROMBOGRAPH HEPARINASE PANE Kiel 06-06-2021 Clot angle after addition of heparinase TEG (Bld) [Angle] 70.2 degrees Normal 47.0-74.0 [facility] Comment on above: Order Comment: Speci men Type: BLOOD SPECIMEN Performed By: #### T EGHPP ####[facility] LABORATORYCLIA [id number] [address] Clot Lysis 30 Min post maximum clot amplitude TEG (Bld) [Length fraction] 0.0 % Normal 0.0-8.0 [facility] Comment on above: Order Comment: Speci men Type: BLOOD SPECIMEN Performed By: #### T EGHPP ####[facility]ORATORYCLIA [id number] [address] Clotting time after addition of heparinase TEG (Bld) 5.7 minutes Normal 4.0-10.0 [facility] Comment on above: Order Comment: Speci men Type: BLOOD SPECIMEN Performed By: #### T EGHPP ####[facility] LABORATORYCLIA [id number] [address] Coagulation index TEG Qn (Bld) 1.2 Normal -4.6-3.2 [facility] Comment on above: Order Comment: Speci men Type: BLOOD SPECIMEN Result Comment: The Coagulation Index, a secondary parameter, is labeled by the peoplesoft fscm developer as for research use only and is used per the peoplesoft fscm developer's instructions. Its performance characteristics were determined by [facility]'s [facility] Pathology and Laboratory Medicine [place] in a manner consistent with CLIA requirements. This test has not been cleared by the U.S. Food and Drug Administration. Performed By: #### T EGHPP ####[facility] LABORATORYCLIA [id number] [address] Maximum clot firmness after addition of heparinase TEG (Bld) [Length] 64.0 mm Normal 51.0-75.0 [facility] Comment on above: Order Comment: Speci men Type: BLOOD SPECIMEN Performed By: #### T EGHPP ####[facility] LABORATORYCLIA [id number] [address] Vancomycin random [Mass/Vol] on 06-06-2021 Vancomycin [Mass/Vol] 17.4 ug/mL Normal 10.0-20.0 [facility] Comment on above: Order Comment: Speci men Type: BLOOD SPECIMEN Result Comment: Refe rence ranges and high/low indicator flags are provided as general guidelines only. The treating physician must determine appropriate target levels/dosing based on the specific clinical situation. Performed By: #### 4 091-5 ####[facility] LABORATORYCLIA [id number] [address] STATES OF [facility] Vancomycin [Mass/Vol] 13.5 ug/mL Normal 10.0-20.0 [facility] Comment on above: Order Comment: Speci men Type: BLOOD SPECIMEN Result Comment: Refe rence ranges and high/low indicator flags are provided as general guidelines only. The treating physician must determine appropriate target levels/dosing based on the specific clinical situation. Performed By: #### 4 091-5 ####[facility]ORATORYCLIA [id number] [address] aPTT PPPon 06-06-2021 aPTT Coag (PPP) [Time] 27.8 s Normal 23.0-32.4 [facility] Comment on above: Order Comment: Speci men Type: BLOOD SPECIMEN Performed By: #### 3 4528-0, 50411-8 ####[facility]ORYCLIA [id number] [address] STATES OF [facility] Basic metabolic 2000 panelon 06-05-2021 Anion gap [Moles/Vol] 11 mmol/L Normal 9-18 [facility] Comment on above: Order Comment: Speci men Type: BLOOD SPECIMEN Performed By: #### 1 9123-9, 08077-3, 2776- ####[facility]ATORYCLIA [id number] [address] STATES OF [facility] Calcium [Mass/Vol] 8.6 mg/dL Normal 8.5-10.2 [facility] Comment on above: Order Comment: Speci men Type: BLOOD SPECIMEN Performed By: #### 1 9123-9, 26836-1, 2776- ####[facility]ATORYCLIA [id number] [address] STATES OF [facility] Chloride [Moles/Vol] 108 mmol/L High 97-105 [facility] Comment on above: Order Comment: Speci men Type: BLOOD SPECIMEN Performed By: #### 1 9123-9, 38202-3, 2776- ####[facility]ATORYCLIA [id number] [address] [place] CO2 [Moles/Vol] 25 mmol/L Normal 22-30 [facility] Comment on above: Order Comment: Speci men Type: BLOOD SPECIMEN Performed By: #### 1 9123-9, 14920-3, 2776- ####[facility]ATORYCLIA [id number] [address] [place] Creatinine [Mass/Vol] 0.77 mg/dL Normal 0.73-1.22 [facility] Comment on above: Order Comment: Speci men Type: BLOOD SPECIMEN Performed By: #### 1 9123-9, 88334-3, 2776-05 ####[facility]IA [id number] [place] [address] [place] GFR/1.73 sq M.predicted [...] actual GFR. Performed By: #### 1 9123-9, 36316-4, 2776-05 ####[facility] [id number] [place] [address] [place] Glucose [Mass/Vol] 96 mg/dL Normal 74-99 [facility] Comment on above: Order Comment: Speci men Type: BLOOD SPECIMEN Result Comment: The [place] Diabetes Association (ADA) provides guidance for cutoff [...] Standards of Medical Care in Diabetes 2016, [place] [employer]. Diabetes Care. 2016.39(Suppl 1). Performed By: #### 1 9123-9, 52095-1, 2776-05 ####[facility]ORATORYCLIA [id number] [address] STATES OF [facility] Potassium [Moles/Vol] 3.9 mmol/L Normal 3.7-5.1 [facility] Comment on above: Order Comment: Speci men Type: BLOOD SPECIMEN Performed By: #### 1 9123-9, 74963-9, 2777-1 ####[facility]ORATORYCLIA [id number] [address] Sodium [Moles/Vol] 144 mmol/L Normal 136-144 [facility] Comment on above: Order Comment: Speci men Type: BLOOD SPECIMEN Performed By: #### 1 9123-9, 31892-4, 2777-1 ####[facility]ORATORYCLIA [id number] [address] Urea nitrogen [Mass/Vol] 26 mg/dL High 9-24 [facility] Comment on above: Order Comment: Speci men Type: BLOOD SPECIMEN Performed By: #### 1 9123-9, 18159-2, 2776- ####[facility]ORATORYCLIA [id number] [address] CBC panel Auto (Bld)on 06-05 Erythrocyte distribution width (RBC) [Ratio] 15.9 % High 11.5-15.0 [facility] Comment on above: Order Comment: Speci men Type: BLOOD SPECIMEN Performed By: #### 5 8410-2 ####[facility]ORATORYCLIA [id number] [address] Hematocrit (Bld) [Volume fraction] 39.6 % Normal 39.0-51.0 [facility] Comment on above: Order Comment: Speci men Type: BLOOD SPECIMEN Performed By: #### 5 8410-2 ####[facility]ORATORYCLIA [id number] [address] OF [facility] Hemoglobin (Bld) [Mass/Vol] 12.3 g/dL Low 13.0-17.0 [facility] Comment on above: Order Comment: Speci men Type: BLOOD SPECIMEN Performed By: #### 5 8410-2 ####[facility]ORATORYCLIA [id number] [address] MCH (RBC) [Entitic mass] 28.1 pg Normal 26.0-34.0 [facility] Comment on above: Order Comment: Speci men Type: BLOOD SPECIMEN Performed By: #### 5 8410-2 ####[facility]ORATORYCLIA [id number] [address] MCHC (RBC) [Mass/Vol] 31.1 g/dL Normal 30.5-36.0 [facility] Comment on above: Order Comment: Speci men Type: BLOOD SPECIMEN Performed By: #### 5 8410-2 ####[facility]ORATORYCLIA [id number] [address] MCV (RBC) [Entitic vol] 90.4 fL Normal 80.0-100.0 [facility] Comment on above: Order Comment: Speci men Type: BLOOD SPECIMEN Performed By: #### 5 8410-2 ####[facility]ORATORYCLIA [id number] [address] Nucleated RBC (Bld) [#/Vol] 10*3/uL Normal <0.01 [facility] Comment on above: Order Comment: Speci men Type: BLOOD SPECIMEN Performed By: #### 5 8410-2 ####[facility]ORATORYCLIA [id number] [address] Platelet mean volume (Bld) [Entitic vol] 10.5 fL Normal 9.0-12.7 [facility] Comment on above: Order Comment: Speci men Type: BLOOD SPECIMEN Performed By: #### 5 8410-2 ####[facility]ORATORYCLIA [id number] [address] Platelets (Bld) [#/Vol] 224 10*3/uL Normal 150-400 [facility] Comment on above: Order Comment: Speci men Type: BLOOD SPECIMEN Performed By: #### 5 8410-2 ####[facility]ORATORYCLIA [id number] [address] OF [facility] RBC (Bld) [#/Vol] 4.38 10*6/uL Normal 4.20-6.00 [facility] Comment on above: Order Comment: Speci men Type: BLOOD SPECIMEN Performed By: #### 5 8410-2 ####[facility]ATORYCLIA [id number] [address] WBC (Bld) [#/Vol] 9.66 10*3/uL Normal 3.70-11.00 [facility] Comment on above: Order Comment: Speci men Type: BLOOD SPECIMEN Performed By: #### 5 8410-2 ####[facility]ORATORYCLIA [id number] [address] CONSULT PROGon 06-05-2021 CONSULT PROG Normal [facility] Gas and Carbon monoxide pane l (BldV)on 06-05-2021 Base excess Calc (BldV) [Moles/Vol] 1.8 mmol/L Normal 0-2 [facility] Comment on above: Order Comment: Speci men Type: VENOUS BLOOD SPECIMEN Performed By: #### 2 4344-4 ####[facility]ORATORYCLIA [id number] [address] Body temperature 100.4 [degF] Normal [facility] Comment on above: Order Comment: Speci men Type: VENOUS BLOOD SPECIMEN Performed By: #### 2 4344-4 ####[facility]ORATORYCLIA [id number] [address] CALCIUM IONIZED, PH CORRECTED 1.21 mmol/L Normal 1.08-1.30 [facility] Comment on above: Order Comment: Speci men Type: VENOUS BLOOD SPECIMEN Performed By: #### 2 4344-4 ####[facility]ORATORYCLIA [id number] [address] Calcium.ionized (BldV) [Mass/Vol] 1.19 mmol/L Normal 1.08-1.30 [facility] Comment on above: Order Comment: Speci men Type: VENOUS BLOOD SPECIMEN Performed By: #### 2 4344-4 ####[facility]ORATORYCLIA [id number] [address] Carboxyhemoglobin (BldV) [Mass fraction] 1.0 % Normal 0.0-2.0 [facility] Comment on above: Order Comment: Speci men Type: VENOUS BLOOD SPECIMEN Result Comment: Carb oxyhemoglobin Reference Range for Smokers: 2.0-8.0% Performed By: #### 2 4344-4 ####[facility]ORATORYCLIA [id number] [address] CO2 (BldV) [Partial pressure] 41 mm[Hg] Low 42-55 [facility] Comment on above: Order Comment: Speci men Type: VENOUS BLOOD SPECIMEN Performed By: #### 2 4344-4 ####[facility]ORATORYCLIA [id number] [address] CO2 [Moles/Vol] 23.4 mmol/L Low 25-29 [facility] Comment on above: Order Comment: Speci men Type: VENOUS BLOOD SPECIMEN Performed By: #### 2 4344-4 ####[facility]ATORYCLIA [id number] [address] CO2 adjusted to patient's actual temperature (BldV) [Partial pressure] 43 mmHg Normal 42-55 [facility] Comment on above: Order Comment: Speci men Type: VENOUS BLOOD SPECIMEN Performed By: #### 2 4344-4 ####[facility]ATORYCLIA [id number] [address] Glucose [Mass/Vol] 101 mg/dL Normal 60-105 [facility] Comment on above: Order Comment: Speci men Type: VENOUS BLOOD SPECIMEN Performed By: #### 2 4344-4 ####[facility]ATORYCLIA [id number] [address] STATES [facility] HCO3 (Bld) [Moles/Vol] 26.0 mmol/L Normal 24-[address] [facility] Comment on above: Order Comment: Speci men Type: VENOUS BLOOD SPECIMEN Performed By: #### 2 4344-4 ####[facility]ATORYCLIA [id number] [place], [place] [id number] [place] [address] OF [facility] Hematocrit (Bld) [Volume fraction] 38.4 % Low 39.0-51.0 [facility] Comment on above: Order Comment: Speci men Type: VENOUS BLOOD SPECIMEN Performed By: #### 2 4344-4 ####[facility]ORYCLIA [id number] [address] Hemoglobin (Bld) [Mass/Vol] 12.5 g/dL Low 13.0-17.0 [facility] Comment on above: Order Comment: Speci men Type: VENOUS BLOOD SPECIMEN Performed By: #### 2 4344-4 ####[facility]ORYCLIA [id number] [address] Methemoglobin (Bld) [Mass fraction] % Normal 0.0-1.5 [facility] Comment on above: Order Comment: Speci men Type: VENOUS BLOOD SPECIMEN Performed By: #### 2 4344-4 ####[facility]ATORYCLIA [id number] [address] [place] O2 THERAPY Ventilator Normal [facility] Comment on above: Order Comment: Speci men Type: VENOUS BLOOD SPECIMEN Performed By: #### 2 4344-4 ####[facility]ORATORYCLIA [id number] [place], [place] [address] [place] [address] Oxygen (BldV) [Partial pressure] 44 mm[Hg] Normal 35-45 [facility] Comment on above: Order Comment: Speci men Type: VENOUS BLOOD SPECIMEN Performed By: #### 2 4344-4 ####[facility]ORYCLIA [id number] [address] Oxygen adjusted to patient's actual temperature (BldV) [Partial pressure] 46.8 mmHg High 35-45 [facility] Comment on above: Order Comment: Speci men Type: VENOUS BLOOD SPECIMEN Performed By: #### 2 4344-4 ####[facility]ATORYCLIA [id number] [address] Oxygen saturation in Blood 76.5 % Normal 60-85 [facility] Comment on above: Order Comment: Speci men Type: VENOUS BLOOD SPECIMEN Performed By: #### 2 4344-4 ####[facility]ATORYCLIA [id number] [address] Oxyhemoglobin (BldV) [Mass fraction] 75 % Normal 60-85 [facility] Comment on above: Order Comment: Speci men Type: VENOUS BLOOD SPECIMEN Performed By: #### 2 4344-4 ####[facility]ATORYCLIA [id number] [address] OF [facility] pH (BldV) 7.42 [pH] Normal 7.32-7.42 [facility] Comment on above: Order Comment: Speci men Type: VENOUS BLOOD SPECIMEN Performed By: #### 2 4344-4 ####[facility]ORYCLIA [id number] [address] pH adjusted to patient's actual temperature (BldV) 7.40 Normal 7.32-7.42 [facility] Comment on above: Order Comment: Speci men Type: VENOUS BLOOD SPECIMEN Performed By: #### 2 4344-4 ####[facility]ORYCLIA [id number] [address] [place] Potassium [Moles/Vol] 3.7 mmol/L Normal 3.5-5.0 [facility] Comment on above: Order Comment: Speci men Type: VENOUS BLOOD SPECIMEN Performed By: #### 2 4344-4 ####[facility]ORYCLIA [id number] [address] [place] Sodium [Moles/Vol] 141 mmol/L Normal 136-144 [facility] Comment on above: Order Comment: Speci men Type: VENOUS BLOOD SPECIMEN Performed By: #### 2 4344-4 ####[facility]ORATORYCLIA [id number] [address] [place] Magnesium SerPl-mCncon 06-05 Magnesium [Mass/Vol] 2.3 mg/dL Normal 1.7-2.3 [facility] Comment on above: Order Comment: Speci men Type: BLOOD SPECIMEN Performed By: #### 1 9123-9, 60971-6, 2777-1 ####[facility]ORATORYCLIA [id number] [address] [place] Phosphate SerPl-mCncon 06-05 Phosphate [Mass/Vol] 2.9 mg/dL Normal 2.7-4.8 [facility] Comment on above: Order Comment: Speci men Type: BLOOD SPECIMEN Performed By: #### 1 9123-9, 56820-3, 2777-1 ####[facility]ORATORYCLIA [id number] [address] STATES OF [facility] Vancomycin random [Mass/Vol] on 06-05-2021 [...] By: #### 4 091-5 ####[facility] LABORATORYCLIA [id number] [place] [id number] [place] (1,3)-B-Y-DZZYGAfh 2 (1,3) B-D GLUCAN <31 Normal <60 [facility] Comment on above: Order Comment: Speci men Type: BLOOD SPECIMEN Performed By: #### B DGLUC ####[facility]FERENCE LABCLIA [id number] [place] [id number], [place] [address] [place] (1,3) B-D GLUCAN, QUAL Negative Normal NEGAT [facility] Comment on above: Order Comment: Speci men Type: BLOOD SPECIMEN Result Comment: Cert ain fungi, such as the genus Cryptococcus which produces very low levels of (1,3)-ozxp-I-nnlyry, may not result in serum (1,3)-orqz-Q-tasdmx sufficiently elevated so as to be detected by the assay. Infections with fungi of the order Mucorales such as Absidia, Mucor and Rhizopus which are not known to produce (1,3)-rnvl-U-fwufhk, are also observed to yield low serum (1,3)-pmea-M-aejdwb titers.In addition, the yeast phase of Blastomyces dermatitidis produces little (1,3)-fhnm-R-khbgpm and may not be detected by the assay. Performed By: #### B DGLUC ####[facility] REFERENCE LABCLIA [id number] [facility] [id number] [address] [place] ALLIED HEALTHon 06-04-2021 ALLIED HEALTH Normal [facility] ALLIED HEALTH Normal [facility] ARTERIAL BLOOD GASESon 06-04 Base excess Calc (Bld) [Moles/Vol] 3 mmol/L High 0-2 [facility] Comment on above: Order Comment: Speci men Type: ARTERIAL BLOOD SPECIMEN Performed By: #### A LLBG ####[facility] LABORATORYCLIA [id number] [address] [place] Body temperature 98.06 [degF] Normal [facility] Comment on above: Order Comment: Speci men Type: ARTERIAL BLOOD SPECIMEN Performed By: #### A LLBG ####[facility]ORATORYCLIA [id number] [address] [place] CALCIUM IONIZED, PH CORRECTED 1.19 mmol/L Normal 1.08-1.30 [facility] Comment on above: Order Comment: Speci men Type: ARTERIAL BLOOD SPECIMEN Performed By: #### A LLBG ####[facility]ORATORYCLIA [id number] [place] [address] [place] Calcium.ionized (BldV) [Mass/Vol] 1.14 mmol/L Normal 1.08-1.30 [facility] Comment on above: Order Comment: Speci men Type: ARTERIAL BLOOD SPECIMEN Performed By: #### A LLBG ####[facility]ORYCLIA [id number] [address] OF [facility] Carboxyhemoglobin (BldA) [Mass fraction] 1.2 % Normal 0.0-2.0 [facility] Comment on above: Order Comment: Speci men Type: ARTERIAL BLOOD SPECIMEN Result Comment: Carb oxyhemoglobin Reference Range for Smokers: 2.0-8.0% Performed By: #### A LLBG ####[facility]ORYCLIA [id number] [address] CO2 (Bld) [Partial pressure] 35 mm Hg Low 36-46 [facility] Comment on above: Order Comment: Speci men Type: ARTERIAL BLOOD SPECIMEN Performed By: #### A LLBG ####[facility]ORYCLIA [id number] [address] [place] CO2 [Moles/Vol] 23.2 mmol/L Normal 22-28 [facility] Comment on above: Order Comment: Speci men Type: ARTERIAL BLOOD SPECIMEN Performed By: #### A LLBG ####[facility]ORYCLIA [id number] [address] CO2 adjusted to patient's actual temperature (Bld) [Partial pressure] 34 mmHg Low 36-46 [facility] Comment on above: Order Comment: Speci men Type: ARTERIAL BLOOD SPECIMEN Performed By: #### A LLBG ####[facility]ORYCLIA [id number] [address] [place] Glucose [Mass/Vol] 115 mg/dL High 60-105 [facility] Comment on above: Order Comment: Speci men Type: ARTERIAL BLOOD SPECIMEN Performed By: #### A LLBG ####[facility]ORYCLIA [id number] [address] [place] HCO3 (Bld) [Moles/Vol] 26 mmol/L Normal 22-26 [facility] Comment on above: Order Comment: Speci men Type: ARTERIAL BLOOD SPECIMEN Performed By: #### A LLBG ####[facility]ORYCLIA [id number] [address] Hematocrit (Bld) [Volume fraction] 35.3 % Low 39.0-51.0 [facility] Comment on above: Order Comment: Speci men Type: ARTERIAL BLOOD SPECIMEN Performed By: #### A LLBG ####[facility]ORYCLIA [id number] [address] OF [facility] Hemoglobin (Bld) [Mass/Vol] 11.5 g/dL Low 13.0-17.0 [facility] Comment on above: Order Comment: Speci men Type: ARTERIAL BLOOD SPECIMEN Performed By: #### A LLBG ####[facility]ORATORYCLIA [id number] [address] Methemoglobin (Bld) [Mass fraction] % Normal 0.0-1.5 [facility] Comment on above: Order Comment: Speci men Type: ARTERIAL BLOOD SPECIMEN Performed By: #### A LLBG ####[facility] LABORATORYCLIA [id number] [address] O2 THERAPY Ventilator Normal [facility] Comment on above: Order Comment: Speci men Type: ARTERIAL BLOOD SPECIMEN Performed By: #### A LLBG ####[facility]ORYCLIA [id number] [address] Oxygen (Bld) [Partial pressure] 66 mm Hg Low 85-95 [facility] Comment on above: Order Comment: Speci men Type: ARTERIAL BLOOD SPECIMEN Performed By: #### A LLBG ####[facility]ORYCLIA [id number] [address] Oxygen adjusted to patient's actual temperature (Bld) [Partial pressure] 64.3 mmHg Low 85-95 [facility] Comment on above: Order Comment: Speci men Type: ARTERIAL BLOOD SPECIMEN Performed By: #### A LLBG ####[facility]ORATORYCLIA [id number] [address] OXYGEN SATURATION, ARTERIAL 95 % Normal 95-98 [facility] Comment on above: Order Comment: Speci men Type: ARTERIAL BLOOD SPECIMEN Performed By: #### A LLBG ####[facility]ATORYCLIA [id number] [address] Oxyhemoglobin (BldA) [Mass fraction] 93 % Low 95-98 [facility] Comment on above: Order Comment: Speci men Type: ARTERIAL BLOOD SPECIMEN Performed By: #### A LLBG ####[facility]ORATORYCLIA [id number] [address] pH (Bld) 7.49 [pH] High 7.35-7.45 [facility] Comment on above: Order Comment: Speci men Type: ARTERIAL BLOOD SPECIMEN Performed By: #### A LLBG ####[facility]ATORYCLIA [id number] [address] pH adjusted to patient's actual temperature (Bld) 7.49 High 7.35-7.45 [facility] Comment on above: Order Comment: Speci men Type: ARTERIAL BLOOD SPECIMEN Performed By: #### A LLBG ####[facility]ATORYCLIA [id number] [address] Potassium [Moles/Vol] 2.8 mmol/L Low 3.5-5.0 [facility] Comment on above: Order Comment: Speci men Type: ARTERIAL BLOOD SPECIMEN Performed By: #### A LLBG ####[facility]ORYCLIA [id number] [address] Bas Metab 2000 Pnl SerPlon 0 06-04-2021 Sodium [Moles/Vol] 143 mmol/L Normal 136-144 [facility] Comment on above: Order Comment: Speci men Type: BLOOD SPECIMEN Performed By: #### 2 777-1, 50134-6, ####[facility]ATORYCLIA [id number] [place], [place] [id number] [place] [address] Order Comment: Speci men Type: ARTERIAL BLOOD SPECIMEN Performed By: #### A LLBG ####[facility]ATORYCLIA [id number] [place] [address] [facility] Basic metabolic 2000 panelon 06-04-2021 Anion gap [Moles/Vol] 11 mmol/L Normal 9-18 [facility] Comment on above: Order Comment: Speci men Type: BLOOD SPECIMEN Performed By: #### 2 777-1, , ####[facility]ORYCLIA [id number] [address] STATES [facility] Calcium [Mass/Vol] 8.5 mg/dL Normal 8.5-10.2 [facility] Comment on above: Order Comment: Speci men Type: BLOOD SPECIMEN Performed By: #### 2 777-1, , ####[facility]ORYCLIA [id number] [address] [place] Chloride [Moles/Vol] 107 mmol/L High 97-105 [facility] Comment on above: Order Comment: Speci men Type: BLOOD SPECIMEN Performed By: #### 2 777-1, , ####[facility]ORYCLIA [id number] [place], [place] [address] [place] [address] [place] CO2 [Moles/Vol] 25 mmol/L Normal 22-30 [facility] Comment on above: Order Comment: Speci men Type: BLOOD SPECIMEN Performed By: #### 2 777-1, , ####[facility]ORATORYCLIA [id number] [place], [place] [address] [place] [address] [place] Creatinine [Mass/Vol] 0.77 mg/dL Normal 0.73-1.22 [facility] Comment on above: Order Comment: Speci men Type: BLOOD SPECIMEN Performed By: #### 2 777-1, , 31318-3 ####[facility] [id number] [place] [address] [place] GFR/1.73 sq M.predicted [...] actual GFR. Performed By: #### 2 777-1, 52126-8, 29240-1 ####[facility] [id number] [place] [id number] [place] Glucose [Mass/Vol] 107 mg/dL High 74-99 [facility] Comment on above: Order Comment: Speci men Type: BLOOD SPECIMEN Result Comment: The [place] [employer] (ADA) provides guidance for cutoff [...] Standards of Medical Care in Diabetes 2016, [place] [employer]. Diabetes Care. 2016.39(Suppl 1). Performed By: #### 2 777-1, 39668-5, 96639-9 ####[facility] [id number] [address] Potassium [Moles/Vol] 3.1 mmol/L Low 3.7-5.1 [facility] Comment on above: Order Comment: Speci men Type: BLOOD SPECIMEN Performed By: #### 2 777-1, , 62711-6 ####[facility]ORATORYCLIA [id number] [address] Urea nitrogen [Mass/Vol] 19 mg/dL Normal 9-24 [facility] Comment on above: Order Comment: Speci men Type: BLOOD SPECIMEN Performed By: #### 2 777-1, , 52477-6 ####[facility] LABORATORYCLIA [id number] [address] CBC panel Auto (Bld)on 06-04 Erythrocyte distribution width (RBC) [Ratio] 15.8 % High 11.5-15.0 [facility] Comment on above: Order Comment: Speci men Type: BLOOD SPECIMEN Performed By: #### 5 8410-2 ####[facility]ORATORYCLIA [id number] [address] Hematocrit (Bld) [Volume fraction] 36.9 % Low 39.0-51.0 [facility] Comment on above: Order Comment: Speci men Type: BLOOD SPECIMEN Performed By: #### 5 8410-2 ####[facility]ORATORYCLIA [id number] [address] Hemoglobin (Bld) [Mass/Vol] 11.2 g/dL Low 13.0-17.0 [facility] Comment on above: Order Comment: Speci men Type: BLOOD SPECIMEN Performed By: #### 5 8410-2 ####[facility]ORATORYCLIA [id number] [address] MCH (RBC) [Entitic mass] 27.3 pg Normal 26.0-34.0 [facility] Comment on above: Order Comment: Speci men Type: BLOOD SPECIMEN Performed By: #### 5 8410-2 ####[facility]ORATORYCLIA [id number] [address] MCHC (RBC) [Mass/Vol] 30.4 g/dL Low 30.5-36.0 [facility] Comment on above: Order Comment: Speci men Type: BLOOD SPECIMEN Performed By: #### 5 8410-2 ####[facility]ORATORYCLIA [id number] [address] MCV (RBC) [Entitic vol] 89.8 fL Normal 80.0-100.0 [facility] Comment on above: Order Comment: Speci men Type: BLOOD SPECIMEN Performed By: #### 5 8410-2 ####[facility]ORATORYCLIA [id number] [address] Nucleated RBC (Bld) [#/Vol] 10*3/uL Normal <0.01 [facility] Comment on above: Order Comment: Speci men Type: BLOOD SPECIMEN Performed By: #### 5 8410-2 ####[facility]ORATORYCLIA [id number] [address] Platelet mean volume (Bld) [Entitic vol] 10.7 fL Normal 9.0-12.7 [facility] Comment on above: Order Comment: Speci men Type: BLOOD SPECIMEN Performed By: #### 5 8410-2 ####[facility]ORATORYCLIA [id number] [address] Platelets (Bld) [#/Vol] 174 10*3/uL Normal 150-400 [facility] Comment on above: Order Comment: Speci men Type: BLOOD SPECIMEN Performed By: #### 5 8410-2 ####[facility]ATORYCLIA [id number] [address] RBC (Bld) [#/Vol] 4.11 10*6/uL Low 4.20-6.00 [facility] Comment on above: Order Comment: Speci men Type: BLOOD SPECIMEN Performed By: #### 5 8410-2 ####[facility]ORATORYCLIA [id number] [address] WBC (Bld) [#/Vol] 8.29 10*3/uL Normal 3.70-11.00 [facility] Comment on above: Order Comment: Speci men Type: BLOOD SPECIMEN Performed By: #### 5 8410-2 ####[facility]ORATORYCLIA [id number] [address] CONSULT PROGon 06-04-2021 CONSULT PROG Normal [...] BLOOD SPECIMEN Performed By: #### 2 777-1, 22642-6, 91446-7 ####[facility]ORATORYCLIA [id number] [address] NT-proBNP SerPl-mCncon 06-04 Natriuretic peptide.B prohormone N-Terminal [Mass/Vol] 229 pg/mL High <125 [facility] Comment on above: Order Comment: Speci men Type: BLOOD SPECIMEN Performed By: #### 3 3762-6, 4091-5 ####[facility]ORATORYCLIA [id number] [address] Phosphate SerPl-mCncon 06-04 Phosphate [Mass/Vol] 2.0 mg/dL Low 2.7-4.8 [facility] Comment on above: Order Comment: Speci men Type: BLOOD SPECIMEN Performed By: #### 2 777-1, 79033-4, 44321-2 ####[facility]ORATORYCLIA [id number] [address] Vancomycin random [Mass/Vol] on 06-04-2021 Vancomycin [...] #### 3 3762-6, 4091-5 ####[facility]ORATORYCLIA [id number] [address] XR ABDOMEN 1V SUPINEon 06-04 XR ABDOMEN 1V SUPINE Normal [facility] ALLIED HEALTHon 06-03-2021 ALLIED HEALTH Normal [facility] ARTERIAL BLOOD GASESon 06-03 Base excess Calc (Bld) [Moles/Vol] 5 mmol/L High 0-2 [facility] Comment on above: Order Comment: Speci men Type: ARTERIAL BLOOD SPECIMEN Performed By: #### A LLBG ####[facility]ORATORYCLIA [id number] [address] Body temperature 99.5 [degF] Normal [facility] Comment on above: Order Comment: Speci men Type: ARTERIAL BLOOD SPECIMEN Performed By: #### A LLBG ####[facility]ORATORYCLIA [id number] [address] CALCIUM IONIZED, PH CORRECTED 1.18 mmol/L Normal 1.08-1.30 [facility] Comment on above: Order Comment: Speci men Type: ARTERIAL BLOOD SPECIMEN Performed By: #### A LLBG ####[facility]ORATORYCLIA [id number] [address] Calcium.ionized (BldV) [Mass/Vol] 1.16 mmol/L Normal 1.08-1.30 [facility] Comment on above: Order Comment: Speci men Type: ARTERIAL BLOOD SPECIMEN Performed By: #### A LLBG ####[facility]ORATORYCLIA [id number] [address] Carboxyhemoglobin (BldA) [Mass fraction] 1.2 % Normal 0.0-2.0 [facility] Comment on above: Order Comment: Speci men Type: ARTERIAL BLOOD SPECIMEN Result Comment: Carb oxyhemoglobin Reference Range for Smokers: 2.0-8.0% Performed By: #### A LLBG ####[facility]ORYCLIA [id number] [address] CO2 (Bld) [Partial pressure] 45 mm Hg Normal 36-46 [facility] Comment on above: Order Comment: Speci men Type: ARTERIAL BLOOD SPECIMEN Performed By: #### A LLBG ####[facility]ORATORYCLIA [id number] [address] CO2 [Moles/Vol] 26.9 mmol/L Normal 22-28 [facility] Comment on above: Order Comment: Speci men Type: ARTERIAL BLOOD SPECIMEN Performed By: #### A LLBG ####[facility]ATORYCLIA [id number] [address] CO2 adjusted to patient's actual temperature (Bld) [Partial pressure] 47 mmHg High 36-46 [facility] Comment on above: Order Comment: Speci men Type: ARTERIAL BLOOD SPECIMEN Performed By: #### A LLBG ####[facility]ORATORYCLIA [id number] [address] Glucose [Mass/Vol] 141 mg/dL High 60-105 [facility] Comment on above: Order Comment: Speci men Type: ARTERIAL BLOOD SPECIMEN Performed By: #### A LLBG ####[facility]ORYCLIA [id number] [address] HCO3 (Bld) [Moles/Vol] 30 mmol/L High 22-26 [facility] Comment on above: Order Comment: Speci men Type: ARTERIAL BLOOD SPECIMEN Performed By: #### A LLBG ####[facility]ORYCLIA [id number] [address] Hematocrit (Bld) [Volume fraction] 35.8 % Low 39.0-51.0 [facility] Comment on above: Order Comment: Speci men Type: ARTERIAL BLOOD SPECIMEN Performed By: #### A LLBG ####[facility]ORYCLIA [id number] [address] Hemoglobin (Bld) [Mass/Vol] 11.6 g/dL Low 13.0-17.0 [facility] Comment on above: Order Comment: Speci men Type: ARTERIAL BLOOD SPECIMEN Performed By: #### A LLBG ####[facility]ORYCLIA [id number] [address] Methemoglobin (Bld) [Mass fraction] % Normal 0.0-1.5 [facility] Comment on above: Order Comment: Speci men Type: ARTERIAL BLOOD SPECIMEN Performed By: #### A LLBG ####[facility]ORYCLIA [id number] [address] O2 THERAPY Ventilator Normal [facility] Comment on above: Order Comment: Speci men Type: ARTERIAL BLOOD SPECIMEN Performed By: #### A LLBG ####[facility]ORYCLIA [id number] [address] [facility] Oxygen (Bld) [Partial pressure] 69 mm Hg Low 85-95 [facility] Comment on above: Order Comment: Speci men Type: ARTERIAL BLOOD SPECIMEN Performed By: #### A LLBG ####[facility]ORYCLIA [id number] [address] [place] Oxygen adjusted to patient's actual temperature (Bld) [Partial pressure] 70.8 mmHg Low 85-95 [facility] Comment on above: Order Comment: Speci men Type: ARTERIAL BLOOD SPECIMEN Performed By: #### A LLBG ####[facility]ORYCLIA [id number] [address] OF [place] OXYGEN SATURATION, ARTERIAL 94 % Low 95-98 [facility] Comment on above: Order Comment: Speci men Type: ARTERIAL BLOOD SPECIMEN Performed By: #### A LLBG ####[facility]ORATORYCLIA [id number] [address] Oxyhemoglobin (BldA) [Mass fraction] 93 % Low 95-98 [facility] Comment on above: Order Comment: Speci men Type: ARTERIAL BLOOD SPECIMEN Performed By: #### A LLBG ####[facility]ATORYCLIA [id number] [address] OF [place] pH (Bld) 7.43 [pH] Normal 7.35-7.45 [facility] Comment on above: Order Comment: Speci men Type: ARTERIAL BLOOD SPECIMEN Performed By: #### A LLBG ####[facility]ATORYCLIA [id number] [address] pH adjusted to patient's actual temperature (Bld) 7.43 Normal 7.35-7.45 [facility] Comment on above: Order Comment: Speci men Type: ARTERIAL BLOOD SPECIMEN Performed By: #### A LLBG ####[facility]ORATORYCLIA [id number] [address] OF [facility] Potassium [Moles/Vol] 3.1 mmol/L Low 3.5-5.0 [facility] Comment on above: Order Comment: Speci men Type: ARTERIAL BLOOD SPECIMEN Performed By: #### A LLBG ####[facility]ORATORYCLIA [id number] [address] OF [facility] Sodium [Moles/Vol] 145 mmol/L High 136-144 [facility] Comment on above: Order Comment: Speci men Type: ARTERIAL BLOOD SPECIMEN Performed By: #### A LLBG ####[facility]ORATORYCLIA [id number] [address] OF [facility] ASPERGILLUS GALACTOMANNAN SE RUMon 06-03-2021 Galactomannan Ag IA Ql Negative Normal NEGAT [facility] Comment on above: [...] is suspected. Performed By: #### A MIMI ####[facility] LABCLIA [id number] [facility] [address] [address] [place] Galactomannan Ag IA Qn <0.50 Normal [facility] Comment on above: Order Comment: Speci men Type: BLOOD SPECIMEN Result Comment: Inde x Values are Interpreted as Follows:Negative specimens <0.50Positive specimens >=0.50 Performed By: #### A SGAKATHRYN ####[facility] REFERENCE LABCLIA [id number] [facility] [address] [address] [place] Basic metabolic 2000 panelon 06-03-2021 Anion gap [Moles/Vol] 8 mmol/L Low 9-18 [facility] Comment on above: Order Comment: Speci men Type: BLOOD SPECIMEN Performed By: #### 1 9123-9, 2777-1, 89502-8 ####[facility]ORATORYCLIA [id number] [place] [address] [place] Calcium [Mass/Vol] 8.0 mg/dL Low 8.5-10.2 [facility] Comment on above: Order Comment: Speci men Type: BLOOD SPECIMEN Performed By: #### 1 9123-9, 2777-1, 72683-7 ####[facility]ORATORYCLIA [id number] [place] [address] [place] Chloride [Moles/Vol] 110 mmol/L High 97-105 [facility] Comment on above: Order Comment: Speci men Type: BLOOD SPECIMEN Performed By: #### 1 9123-9, 2777-1, 60163-7 ####[facility]ORATORYCLIA [id number] [place] [address] [place] CO2 [Moles/Vol] 28 mmol/L Normal 22-30 [facility] Comment on above: Order Comment: Speci men Type: BLOOD SPECIMEN Performed By: #### 1 9123-9, 2777-1, 76965-2 ####[facility]ORATORYCLIA [id number] [place] [address] [place] Creatinine [Mass/Vol] 0.75 mg/dL Normal 0.73-1.22 [facility] Comment on above: Order Comment: Speci men Type: BLOOD SPECIMEN Performed By: #### 1 9123-9, 2777-, 88223-5 ####[facility]ORATORYCLIA [id number] [place] [address] [place] GFR/1.73 sq M.predicted [...] GFR. Performed By: #### 1 9123-9, 2777-, 11870-6 ####[facility]ORATORYCLIA [id number] [place] [address] [place] Glucose [Mass/Vol] 141 mg/dL High 74-99 [facility] Comment on above: Order Comment: [facility] Type: BLOOD SPECIMEN Result Comment: The [place] [employer] (ADA) provides guidance for cutoff [...] Standards of Medical Care in Diabetes 2016, [place] [employer]. Diabetes Care. 2016.39(Suppl 1). Performed By: #### 1 9123-9, 2777-1, 51372-1 ####[facility]ORATORYCLIA [id number] [address] Potassium [Moles/Vol] 3.3 mmol/L Low 3.7-5.1 [facility] Comment on above: Order Comment: Speci men Type: BLOOD SPECIMEN Performed By: #### 1 9123-9, 27711-04, 32006-9 ####[facility]ATORYCLIA [id number] [address] Sodium [Moles/Vol] 146 mmol/L High 136-144 [facility] Comment on above: Order Comment: Speci men Type: BLOOD SPECIMEN Performed By: #### 1 9123-9, 27711-04, 31720-1 ####[facility]ATORYCLIA [id number] [address] Urea nitrogen [Mass/Vol] 10 mg/dL Normal 9-24 [facility] Comment on above: Order Comment: Speci men Type: BLOOD SPECIMEN Performed By: #### 1 9123-9, 2777, 48021-8 ####[facility]ATORYCLIA [id number] [address] CASE MANAGEMon 06-03-2021 CASE MANAGEM Normal [facility] CBC panel Auto (Bld)on 06-03 Erythrocyte distribution width (RBC) [Ratio] 15.6 % High 11.5-15.0 [facility] Comment on above: Order Comment: Speci men Type: BLOOD SPECIMEN Performed By: #### 5 8410-2 ####[facility]ORATORYCLIA [id number] [address] Hematocrit (Bld) [Volume fraction] 36.9 % Low 39.0-51.0 [facility] Comment on above: Order Comment: Speci men Type: BLOOD SPECIMEN Performed By: #### 5 8410-2 ####[facility]ATORYCLIA [id number] [address] Hemoglobin (Bld) [Mass/Vol] 11.1 g/dL Low 13.0-17.0 [facility] Comment on above: Order Comment: Speci men Type: BLOOD SPECIMEN Performed By: #### 5 8410-2 ####[facility]ORATORYCLIA [id number] [address] MCH (RBC) [Entitic mass] 27.0 pg Normal 26.0-34.0 [facility] Comment on above: Order Comment: Speci men Type: BLOOD SPECIMEN Performed By: #### 5 8410-2 ####[facility]ATORYCLIA [id number] [address] MCHC (RBC) [Mass/Vol] 30.1 g/dL Low 30.5-36.0 [facility] Comment on above: Order Comment: Speci men Type: BLOOD SPECIMEN Performed By: #### 5 8410-2 ####[facility]ORATORYCLIA [id number] [address] MCV (RBC) [Entitic vol] 89.8 fL Normal 80.0-100.0 [facility] Comment on above: Order Comment: Speci men Type: BLOOD SPECIMEN Performed By: #### 5 8410-2 ####[facility]ORATORYCLIA [id number] [address] Nucleated RBC (Bld) [#/Vol] 10*3/uL Normal <0.01 [facility] Comment on above: Order Comment: Speci men Type: BLOOD SPECIMEN Performed By: #### 5 8410-2 ####[facility]ATORYCLIA [id number] [address] Platelet mean volume (Bld) [Entitic vol] 10.5 fL Normal 9.0-12.7 [facility] Comment on above: Order Comment: Speci men Type: BLOOD SPECIMEN Performed By: #### 5 8410-2 ####[facility]ORATORYCLIA [id number] [address] Platelets (Bld) [#/Vol] 196 10*3/uL Normal 150-400 [facility] Comment on above: Order Comment: Speci men Type: BLOOD SPECIMEN Performed By: #### 5 8410-2 ####[facility]ORATORYCLIA [id number] [address] RBC (Bld) [#/Vol] 4.11 10*6/uL Low 4.20-6.00 [facility] Comment on above: Order Comment: Speci men Type: BLOOD SPECIMEN Performed By: #### 5 8410-2 ####[facility]ATORYCLIA [id number] [address] WBC (Bld) [#/Vol] 8.18 10*3/uL Normal 3.70-11.00 [facility] Comment on above: Order Comment: Speci men Type: BLOOD SPECIMEN Performed By: #### 5 8410-2 ####[facility]ORATORYCLIA [id number] [address] CONSULTon 06-03-2021 CONSULT Normal [facility] CONSULT PROGon 06-03-2021 CONSULT PROG Normal [facility] Gas and Carbon monoxide pane l (BldV)on 06-03-2021 Base excess Calc (BldV) [Moles/Vol] 1.4 mmol/L Normal 0-2 [facility] Comment on above: Order Comment: Speci men Type: VENOUS BLOOD SPECIMEN Performed By: #### 2 4344-4 ####[facility] LABORATORYCLIA [id number] [address] Body temperature 98.42 [degF] Normal [facility] Comment on above: Order Comment: Speci men Type: VENOUS BLOOD SPECIMEN Performed By: #### 2 4344-4 ####[facility] LABORATORYCLIA [id number] [address] CALCIUM IONIZED, PH CORRECTED 1.09 mmol/L Normal 1.08-1.30 [facility] Comment on above: Order Comment: Speci men Type: VENOUS BLOOD SPECIMEN Performed By: #### 2 4344-4 ####[facility]ORYCLIA [id number] [address] Calcium.ionized (BldV) [Mass/Vol] 1.12 mmol/L Normal 1.08-1.30 [facility] Comment on above: Order Comment: Speci men Type: VENOUS BLOOD SPECIMEN Performed By: #### 2 4344-4 ####[facility]ORYCLIA [id number] [address] Carboxyhemoglobin (BldV) [Mass fraction] 1.7 % Normal 0.0-2.0 [facility] Comment on above: Order Comment: Speci men Type: VENOUS BLOOD SPECIMEN Result Comment: Carb oxyhemoglobin Reference Range for Smokers: 2.0-8.0% Performed By: #### 2 4344-4 ####[facility]ORYCLIA [id number] [address] CO2 (BldV) [Partial pressure] 50 mm[Hg] Normal 42-55 [facility] Comment on above: Order Comment: Speci men Type: VENOUS BLOOD SPECIMEN Performed By: #### 2 4344-4 ####[facility]ORYCLIA [id number] [address] [place] CO2 [Moles/Vol] 24.9 mmol/L Low 25-29 [facility] Comment on above: Order Comment: Speci men Type: VENOUS BLOOD SPECIMEN Performed By: #### 2 4344-4 ####[facility]ORYCLIA [id number] [address] CO2 adjusted to patient's actual temperature (BldV) [Partial pressure] 50 mmHg Normal 42-55 [facility] Comment on above: Order Comment: Speci men Type: VENOUS BLOOD SPECIMEN Performed By: #### 2 4344-4 ####[facility] LABORATORYCLIA [id number] [address] [place] FIO2 30 % Normal [facility] Comment on above: Order Comment: Speci men Type: VENOUS BLOOD SPECIMEN Performed By: #### 2 4344-4 ####[facility]ATORYCLIA [id number] [address] Glucose [Mass/Vol] 191 mg/dL High 60-105 [facility] Comment on above: Order Comment: Speci men Type: VENOUS BLOOD SPECIMEN Performed By: #### 2 4344-4 ####[facility]ORYCLIA [id number] [address] HCO3 (Bld) [Moles/Vol] 27.1 mmol/L Normal 24-28 [facility] Comment on above: Order Comment: Speci men Type: VENOUS BLOOD SPECIMEN Performed By: #### 2 4344-4 ####[facility]ORYCLIA [id number] [address] Hematocrit (Bld) [Volume fraction] 36.2 % Low 39.0-51.0 [facility] Comment on above: Order Comment: Speci men Type: VENOUS BLOOD SPECIMEN Performed By: #### 2 4344-4 ####[facility]ORYCLIA [id number] [address] Hemoglobin (Bld) [Mass/Vol] 11.8 g/dL Low 13.0-17.0 [facility] Comment on above: Order Comment: Speci men Type: VENOUS BLOOD SPECIMEN Performed By: #### 2 4344-4 ####[facility]ATORYCLIA [id number] [address] INHALED TIDAL VOLUME (ML) 530 Normal [facility] Comment on above: Order Comment: Speci men Type: VENOUS BLOOD SPECIMEN Performed By: #### 2 4344-4 ####[facility]ATORYCLIA [id number] [place] [address] [facility] Methemoglobin (Bld) [Mass fraction] % Normal 0.0-1.5 [facility] Comment on above: Order Comment: Speci men Type: VENOUS BLOOD SPECIMEN Performed By: #### 2 4344-4 ####[facility]ATORYCLIA [id number] [place] [address] [facility] [place] O2 THERAPY Ventilator Normal [facility] Comment on above: Order Comment: Speci men Type: VENOUS BLOOD SPECIMEN Performed By: #### 2 4344-4 ####[facility]ATORYCLIA [id number] [place], [place] [id number] [place] [address] Oxygen (BldV) [Partial pressure] 69 mm[Hg] High 35-45 [facility] Comment on above: Order Comment: Speci men Type: VENOUS BLOOD SPECIMEN Performed By: #### 2 4344-4 ####[facility]ATORYCLIA [id number] [place], [place] [id number] [place] [address] Oxygen adjusted to patient's actual temperature (BldV) [Partial pressure] 68.8 mmHg High 35-45 [facility] Comment on above: Order Comment: Speci men Type: VENOUS BLOOD SPECIMEN Performed By: #### 2 4344-4 ####[facility]ATORYCLIA [id number] [place], [place] [id number] [place] [address] Oxygen saturation in Blood 92.4 % High 60-85 [facility] Comment on above: Order Comment: Speci men Type: VENOUS BLOOD SPECIMEN Performed By: #### 2 4344-4 ####[facility]ORYCLIA [id number] [place], [place] [address] [place] [address] Oxyhemoglobin (BldV) [Mass fraction] 90 % High 60-85 [facility] Comment on above: Order Comment: Speci men Type: VENOUS BLOOD SPECIMEN Performed By: #### 2 4344-4 ####[facility]ATORYCLIA [id number] [facility] [place], [address] PEEP/CPAP 8 cmH2O Normal [facility] Comment on above: Order Comment: Speci men Type: VENOUS BLOOD SPECIMEN Performed By: #### 2 4344-4 ####[facility]ORYCLIA [id number] [address] pH (BldV) 7.35 [pH] Normal 7.32-7.42 [facility] Comment on above: Order Comment: Speci men Type: VENOUS BLOOD SPECIMEN Performed By: #### 2 4344-4 ####[facility]ORYCLIA [id number] [address] pH adjusted to patient's actual temperature (BldV) 7.35 Normal 7.32-7.42 [facility] Comment on above: Order Comment: Speci men Type: VENOUS BLOOD SPECIMEN Performed By: #### 2 4344-4 ####[facility]ORYCLIA [id number] [address] Potassium [Moles/Vol] 3.6 mmol/L Normal 3.5-5.0 [facility] Comment on above: Order Comment: Speci men Type: VENOUS BLOOD SPECIMEN Performed By: #### 2 4344-4 ####[facility]ORYCLIA [id number] [address] SET VENTILATOR RESPIRATORY RATE (BPM) 18 BPM Normal [facility] Comment on above: Order Comment: Speci men Type: VENOUS BLOOD SPECIMEN Performed By: #### 2 4344-4 ####[facility]ORYCLIA [id number] [address] Sodium [Moles/Vol] 141 mmol/L Normal 136-144 [facility] Comment on above: Order Comment: Speci men Type: VENOUS BLOOD SPECIMEN Performed By: #### 2 4344-4 ####[facility]ORYCLIA [id number] [address] OF [facility] HIV 1+2 Ab IA Qlon 2 HIV 1 and 2 Ab IA.rapid Nom Normal [facility] Comment on above: Order Comment: Speci men Type: BLOOD SPECIMEN Result Comment: Test not indicated. Performed By: #### 3 1201-7, TOXMG ####[facility]ORATORYCLIA [id number] [address] HIV 1+2 Ab+HIV1 p24 Ag IA [...] #### 3 1201-7, TOXMG ####[facility]ORATORYCLIA [id number] [address] HIVINT Normal [facility] Comment on above: Order Comment: Speci men Type: BLOOD SPECIMEN Result Comment: No e vidence of HIV-1 or HIV-2 infection. Should recent infection be suspected, repeat testing may be considered 2-3 weeks after this draw. Performed By: #### 3 1201-7, TOXMG ####[facility]ORATORYCLIA [id number] [address] OF [place] Magnesium SerPl-mCncon 06-03 Magnesium [Mass/Vol] 1.9 mg/dL Normal 1.7-2.3 [facility] Comment on above: Order Comment: Speci men Type: BLOOD SPECIMEN Performed By: #### 1 9123-9, 2777-1, 40458-0 ####[facility]ORATORYCLIA [id number] [address] OF [place] NUTRITIONon 06-03-2021 NUTRITION Normal [facility] Phosphate SerPl-mCncon 06-03 Phosphate [Mass/Vol] 1.9 mg/dL Low 2.7-4.8 [facility] Comment on above: Order Comment: Speci men Type: BLOOD SPECIMEN Performed By: #### 1 9123-9, 2777-1, 02807-4 ####[facility]ORATORYCLIA [id number] [address] TOXOPLASMOSIS IGM AND IGG AB on [...] #### 3 1201-7, TOXMG ####[facility]ORATORYCLIA [id number] [address] TOXO IGM QUAL Negative Normal Negative [facility] Comment on above: Order Comment: Speci men Type: BLOOD SPECIMEN Result Comment: No s erological evidence of recent exposure to Toxoplasma gondii.Negative <0.9 IndexEquivocal 0.9-0.99 IndexPositive >=1.0 Index Performed By: #### 3 1201-7, TOXMG ####[facility] LABORATORYCLIA [id number] [address] STATES [place] US DVT LOWER [...] By: #### A LLBG ####[facility] LABORATORYCLIA [id number] [address] Body temperature 99.32 [degF] Normal [facility] Comment on above: Order Comment: Speci men Type: ARTERIAL BLOOD SPECIMEN Performed By: #### A LLBG ####[facility]ORYCLIA [id number] [address] CALCIUM IONIZED, PH CORRECTED 1.15 mmol/L Normal 1.08-1.30 [facility] Comment on above: Order Comment: Speci men Type: ARTERIAL BLOOD SPECIMEN Performed By: #### A LLBG ####[facility]ORATORYCLIA [id number] [address] Calcium.ionized (BldV) [Mass/Vol] 1.13 mmol/L Normal 1.08-1.30 [facility] Comment on above: Order Comment: Speci men Type: ARTERIAL BLOOD SPECIMEN Performed By: #### A LLBG ####[facility]ORATORYCLIA [id number] [address] Carboxyhemoglobin (BldA) [Mass fraction] 1.4 % Normal 0.0-2.0 [facility] Comment on above: Order Comment: Speci men Type: ARTERIAL BLOOD SPECIMEN Result Comment: Carb oxyhemoglobin Reference Range for Smokers: 2.0-8.0% Performed By: #### A LLBG ####[facility]ORATORYCLIA [id number] [address] CO2 (Bld) [Partial pressure] 39 mm Hg Normal 36-46 [facility] Comment on above: Order Comment: Speci men Type: ARTERIAL BLOOD SPECIMEN Performed By: #### A LLBG ####[facility]ORATORYCLIA [id number] [address] CO2 [Moles/Vol] 23.4 mmol/L Normal 22-28 [facility] Comment on above: Order Comment: Speci men Type: ARTERIAL BLOOD SPECIMEN Performed By: #### A LLBG ####[facility]ORATORYCLIA [id number] [address] CO2 adjusted to patient's actual temperature (Bld) [Partial pressure] 40 mmHg Normal 36-46 [facility] Comment on above: Order Comment: Speci men Type: ARTERIAL BLOOD SPECIMEN Performed By: #### A LLBG ####[facility]ORYCLIA [id number] [address] Glucose [Mass/Vol] 156 mg/dL High 60-105 [facility] Comment on above: Order Comment: Speci men Type: ARTERIAL BLOOD SPECIMEN Performed By: #### A LLBG ####[facility]ORYCLIA [id number] [address] HCO3 (Bld) [Moles/Vol] 26 mmol/L Normal 22-26 [facility] Comment on above: Order Comment: Speci men Type: ARTERIAL BLOOD SPECIMEN Performed By: #### A LLBG ####[facility]ORYCLIA [id number] [address] Hematocrit (Bld) [Volume fraction] 33.9 % Low 39.0-51.0 [facility] Comment on above: Order Comment: Speci men Type: ARTERIAL BLOOD SPECIMEN Performed By: #### A LLBG ####[facility]ORYCLIA [id number] [address] Hemoglobin (Bld) [Mass/Vol] 11.0 g/dL Low 13.0-17.0 [facility] Comment on above: Order Comment: Speci men Type: ARTERIAL BLOOD SPECIMEN Performed By: #### A LLBG ####[facility]ORYCLIA [id number] [address] Methemoglobin (Bld) [Mass fraction] % Normal 0.0-1.5 [facility] Comment on above: Order Comment: Speci men Type: ARTERIAL BLOOD SPECIMEN Performed By: #### A LLBG ####[facility]ORYCLIA [id number] [address] O2 THERAPY Ventilator Normal [facility] Comment on above: Order Comment: Speci men Type: ARTERIAL BLOOD SPECIMEN Performed By: #### A LLBG ####[facility]ORYCLIA [id number] [place] [address] [place] Oxygen (Bld) [Partial pressure] 70 mm Hg Low 85-95 [facility] Comment on above: Order Comment: Speci men Type: ARTERIAL BLOOD SPECIMEN Performed By: #### A LLBG ####[facility]ORYCLIA [id number] [place], [place] [address] [place] [address] Oxygen adjusted to patient's actual temperature (Bld) [Partial pressure] 72.2 mmHg Low 85-95 [facility] Comment on above: Order Comment: Speci men Type: ARTERIAL BLOOD SPECIMEN Performed By: #### A LLBG ####[facility]ORYCLIA [id number] [address] OXYGEN SATURATION, ARTERIAL 96 % Normal 95-98 [facility] Comment on above: Order Comment: Speci men Type: ARTERIAL BLOOD SPECIMEN Performed By: #### A LLBG ####[facility]ORATORYCLIA [id number] [address] Oxyhemoglobin (BldA) [Mass fraction] 94 % Low 95-98 [facility] Comment on above: Order Comment: Speci men Type: ARTERIAL BLOOD SPECIMEN Performed By: #### A LLBG ####[facility]ORATORYCLIA [id number] [address] STATES [place] pH (Bld) 7.43 [pH] Normal 7.35-7.45 [facility] Comment on above: Order Comment: Speci men Type: ARTERIAL BLOOD SPECIMEN Performed By: #### A LLBG ####[facility]ORYCLIA [id number] [address] pH adjusted to patient's actual temperature (Bld) 7.42 Normal 7.35-7.45 [facility] Comment on above: Order Comment: Speci men Type: ARTERIAL BLOOD SPECIMEN Performed By: #### A LLBG ####[facility]ORYCLIA [id number] [address] STATES [place] Potassium [Moles/Vol] 2.6 mmol/L Low 3.5-5.0 [facility] Comment on above: Order Comment: Speci men Type: ARTERIAL BLOOD SPECIMEN Performed By: #### A LLBG ####[facility]ORATORYCLIA [id number] [address] Sodium [Moles/Vol] 142 mmol/L Normal 136-144 [facility] Comment on above: Order Comment: Speci men Type: ARTERIAL BLOOD SPECIMEN Performed By: #### A LLBG ####[facility]ORATORYCLIA [id number] [address] Ammonia Plas-sCncon 06-02-19 22 Ammonia (P) [Moles/Vol] 20 umol/L Normal 16-60 [facility] Comment on above: Order Comment: Speci men Type: BLOOD SPECIMEN Performed By: #### 1 6362-6 ####[facility]ORATORYCLIA [id number] [address] Bacteria CSF Culton 06-02-19 22 Bacteria identified Cx Nom (CSF) CULTURE, CSF: No growth 14 days GRAM STAIN: No organisms seen Rare Polymorphonuclear leukocytes Gram stain performed on cytospun specimen. Normal [facility] Comment on above: Performed By: #### 6 06-4 ####[facility]ORATORYCLIA [id number] [address] Basic metabolic 2000 panelon 06-02-2021 Anion gap [Moles/Vol] 10 mmol/L Normal 9-18 [facility] Comment on above: Order Comment: Speci men Type: BLOOD SPECIMEN Performed By: #### 2 4321-2, , 2776-05 ####[facility]ORATORYCLIA [id number] [address] STATES OF [facility] Calcium [Mass/Vol] 8.1 mg/dL Low 8.5-10.2 [facility] Comment on above: Order Comment: Speci men Type: BLOOD SPECIMEN Performed By: #### 2 4321-2, , 2776-05 ####[facility]ORATORYCLIA [id number] [place] [address] [place] Chloride [Moles/Vol] 108 mmol/L High 97-105 [facility] Comment on above: Order Comment: Speci men Type: BLOOD SPECIMEN Performed By: #### 2 4321-2, , 2776-05 ####[facility]ORATORYCLIA [id number] [place] [address] [place] CO2 [Moles/Vol] 24 mmol/L Normal 22-30 [facility] Comment on above: Order Comment: Speci men Type: BLOOD SPECIMEN Performed By: #### 2 1-2, , 2776-05 ####[facility]ORATORYCLIA [id number] [address] STATES OF [facility] Creatinine [Mass/Vol] 0.78 mg/dL Normal 0.73-1.22 [facility] Comment on above: Order Comment: Speci men Type: BLOOD SPECIMEN Performed By: #### 2 1-2, , 2776-05 ####[facility]ORATORYCLIA [id number] [address] [place] GFR/1.73 sq M.predicted [...] 2 4321-2, , 2776-05 ####[facility]ORATORYCLIA [id number] [address] [place] Glucose [Mass/Vol] 162 mg/dL High 74-99 [facility] Comment on above: Order Comment: Speci men Type: BLOOD SPECIMEN Result Comment: The [place] Diabetes Association (ADA) provides guidance for cutoff [...] Standards of Medical Care in Diabetes 2016, [place] [employer]. Diabetes Care. 2016.39(Suppl 1). Performed By: #### 2 1-2, , 2776-05 ####[facility]ORATORYCLIA [id number] [address] [place] Potassium [Moles/Vol] 2.7 mmol/L Low 3.7-5.1 [facility] Comment on above: Order Comment: Speci men Type: BLOOD SPECIMEN Performed By: #### 2 4320-2, , 2776-05 ####[facility]ORATORYCLIA [id number] [address] STATES [facility] Sodium [Moles/Vol] 142 mmol/L Normal 136-144 [facility] Comment on above: Order Comment: Speci men Type: BLOOD SPECIMEN Performed By: #### 2 1-2, , 2776-05 ####[facility]ORATORYCLIA [id number] [place] [address] [place] Urea nitrogen [Mass/Vol] 12 mg/dL Normal 9-24 [facility] Comment on above: Order Comment: Speci men Type: BLOOD SPECIMEN Performed By: #### 2 1-2, , 2776-05 ####[facility]ORATORYCLIA [id number] [address] STATES [facility] CBC panel Auto (Bld)on 06-02 Erythrocyte distribution width (RBC) [Ratio] 15.0 % Normal 11.5-15.0 [facility] Comment on above: Order Comment: Speci men Type: BLOOD SPECIMEN Performed By: #### 5 8410-2 ####[facility]ORATORYCLIA [id number] [address] Hematocrit (Bld) [Volume fraction] 34.3 % Low 39.0-51.0 [facility] Comment on above: Order Comment: Speci men Type: BLOOD SPECIMEN Performed By: #### 5 8410-2 ####[facility]ORATORYCLIA [id number] [address] Hemoglobin (Bld) [Mass/Vol] 10.3 g/dL Low 13.0-17.0 [facility] Comment on above: Order Comment: Speci men Type: BLOOD SPECIMEN Performed By: #### 5 8410-2 ####[facility]ORATORYCLIA [id number] [address] MCH (RBC) [Entitic mass] 27.0 pg Normal 26.0-34.0 [facility] Comment on above: Order Comment: Speci men Type: BLOOD SPECIMEN Performed By: #### 5 8410-2 ####[facility]ATORYCLIA [id number] [address] MCHC (RBC) [Mass/Vol] 30.0 g/dL Low 30.5-36.0 [facility] Comment on above: Order Comment: Speci men Type: BLOOD SPECIMEN Performed By: #### 5 8410-2 ####[facility]ORATORYCLIA [id number] [address] MCV (RBC) [Entitic vol] 90.0 fL Normal 80.0-100.0 [facility] Comment on above: Order Comment: Speci men Type: BLOOD SPECIMEN Performed By: #### 5 8410-2 ####[facility]ORATORYCLIA [id number] [address] Nucleated RBC (Bld) [#/Vol] 10*3/uL Normal <0.01 [facility] Comment on above: Order Comment: Speci men Type: BLOOD SPECIMEN Performed By: #### 5 8410-2 ####[facility]ORATORYCLIA [id number] [address] Platelet mean volume (Bld) [Entitic vol] 10.2 fL Normal 9.0-12.7 [facility] Comment on above: Order Comment: Speci men Type: BLOOD SPECIMEN Performed By: #### 5 8410-2 ####[facility]ORATORYCLIA [id number] [address] Platelets (Bld) [#/Vol] 194 10*3/uL Normal 150-400 [facility] Comment on above: Order Comment: Speci men Type: BLOOD SPECIMEN Performed By: #### 5 8410-2 ####[facility]ATORYCLIA [id number] [address] RBC (Bld) [#/Vol] 3.81 10*6/uL Low 4.20-6.00 [facility] Comment on above: Order Comment: Speci men Type: BLOOD SPECIMEN Performed By: #### 5 8410-2 ####[facility]ATORYCLIA [id number] [address] WBC (Bld) [#/Vol] 9.22 10*3/uL Normal 3.70-11.00 [facility] Comment on above: Order Comment: Speci men Type: BLOOD SPECIMEN Performed By: #### 5 8410-2 ####[facility]ORATORYCLIA [id number] [address] CONSULT PROGon 06-02-2021 CONSULT PROG Normal [facility] CSF MANUAL DIFFon 06-02-2021 DIF TTL, CSF 25 cells counted Normal [facility] Comment on above: Order Comment: Speci men Type: CEREBROSPINAL FLUID Performed By: #### 3 4563-7, [id number], [id number] ####[facility]ATORYCLIA [id number] [place], [place] [address] [place] [address] OF [place] LYMPH%, CSF 4 % Low 50-90 [facility] Comment on above: Order Comment: Speci men Type: CEREBROSPINAL FLUID Performed By: #### 3 4563-7, [id number], [id number] ####[facility]ORYCLIA [id number] [address] STATES [place] MACRO%, CSF 4 % High <1 [facility] Comment on above: Order Comment: Speci men Type: CEREBROSPINAL FLUID Performed By: #### 3 4563-7, [id number], [id number] ####[facility]ORYCLIA [id number] [address] [place] MONO%, CSF 20 % Normal 10-50 [facility] Comment on above: Order Comment: Speci men Type: CEREBROSPINAL FLUID Performed By: #### 3 4563-7, [id number], [id number] ####[facility]ORYCLIA [id number] [address] [place] NEUT%, CSF 72 % High 0-3 [facility] Comment on above: Order Comment: Speci men Type: CEREBROSPINAL FLUID Performed By: #### 3 4563-7, [id number], [id number] ####[facility]ORYCLIA [id number] [address] CSF PATHOLOGIST INTERP (LAB REFLEX ORDER-NO BILL)on 06-02-2021 CSF STAFF REVIEW Negative [facility] Comment on above: Order Comment: Speci men Type: CEREBROSPINAL FLUID Performed By: #### 3 4563-7, [id number], [id number] ####[facility]ORYCLIA [id number] [address] Pathologist name Reviewed by Amador Stevens MD [facility] Comment on above: Order Comment: Speci men Type: CEREBROSPINAL FLUID Performed By: #### 3 4563-7, [id number], [id number] ####[facility]ORATORYCLIA [id number] [address] Cell count panel (CSF)on Clarity (CSF) Clear Normal Clear [facility] Comment on above: Order Comment: Speci men Type: CEREBROSPINAL FLUID Performed By: #### 3 4563-7, [id number], [id number] ####[facility]ATORYCLIA [id number] [address] Clarity (Unsp spec) Not Indicated Normal Clear [facility] Comment on above: Order Comment: Speci men Type: CEREBROSPINAL FLUID Performed By: #### 3 4563-7, [id number], [id number] ####[facility]ORATORYCLIA [id number] [address] Color (CSF) Colorless Normal Colorless [facility] Comment on above: Order Comment: Speci men Type: CEREBROSPINAL FLUID Performed By: #### 3 4563-7, [id number], [id number] ####[facility]ATORYCLIA [id number] [address] Color (Spun CSF) Not Indicated Normal Colorless [facility] Comment on above: Order Comment: Speci men Type: CEREBROSPINAL FLUID Performed By: #### 3 4563-7, [id number], [id number] ####[facility]ORATORYCLIA [id number] [address] CSF TUBE NUMBER [employer] Container Normal [facility] Comment on above: Order Comment: Speci men Type: CEREBROSPINAL FLUID Performed By: #### 3 4563-7, [id number], [id number] ####[facility]ORYCLIA [id number] [address] RBC Manual cnt (CSF) [#/Vol] 117 cells/uL High 0-5 [facility] Comment on above: Order Comment: Speci men Type: CEREBROSPINAL FLUID Performed By: #### 3 4563-7, [id number], [id number] ####[facility]ORYCLIA [id number] [address] STATES OF [facility] WBC Manual cnt (CSF) [#/Vol] 1 cells/uL Normal 0-5 [facility] Comment on above: Order Comment: Speci men Type: CEREBROSPINAL FLUID Performed By: #### 3 4563-7, [id number], [id number] ####[facility]ORATORYCLIA [id number] [address] [place] Glucose CSF-mCncon 2 [...] Glucose HK (GLUC3) [package insert V 12.0 [place]er]. [employer], [place], [place]. September 2015. 2. Michelle Moore, Loki HGarfield (2015). Chapter 7: Glucose and Lactate. Marianela Alcocer al.(eds.), Cerebrospinal Fluid in Clinical Neurology. [place]: [employer]. Performed By: #### 2 342-4 ####[facility]ORATORYCLIA [id number] [address] HEPATIC FUNCTION PNLon 06-02 Albumin [Mass/Vol] 3.2 g/dL Low 3.9-4.9 [facility] Comment on above: Order Comment: Speci men Type: BLOOD SPECIMEN Performed By: #### H FP, 34306-8 ####[facility]ORATORYCLIA [id number] [address] STATES [place] ALP [Catalytic activity/Vol] 67 U/L Normal 38-113 [facility] Comment on above: Order Comment: Speci men Type: BLOOD SPECIMEN Performed By: #### H FP, 17387-7 ####[facility]ORATORYCLIA [id number] [address] STATES OF [facility] ALT With P-5'-P [Catalytic activity/Vol] 16 U/L Normal 10-54 [facility] Comment on above: Order Comment: Speci men Type: BLOOD SPECIMEN Performed By: #### [place], [address]-1 ####[employer] PharmaceuticalsVENITA [facility]AL LABORATORYCLIA [id number] [address] AST With P-5'-P [Catalytic activity/Vol] 25 U/L Normal 14-40 [facility] Comment on above: Order Comment: Speci men Type: BLOOD SPECIMEN Performed By: #### [place] KATHIE, 61441-4 ####[facility]ATORYCLIA [id number] [address] Bilirubin [Mass/Vol] 0.2 mg/dL Normal 0.2-1.3 [facility] Comment on above: Order Comment: Speci men Type: BLOOD SPECIMEN Performed By: #### [place] KATHIE, ####[facility]ATORYCLIA [id number] [address] Bilirubin.conjugated [Mass/Vol] mg/dL Normal <0.2 [facility] Comment on above: Order Comment: Speci men Type: BLOOD SPECIMEN Performed By: #### [place] KATHIE, 71558-5 ####[employer] PharmaceuticalsVENITA [facility]AL LABORATORYCLIA [id number] [address] Protein [Mass/Vol] 5.8 g/dL Low 6.3-8.0 [facility] Comment on above: Order Comment: Speci men Type: BLOOD SPECIMEN Performed By: #### [place], [address]-9 ####[employer] PharmaceuticalsVEN[facility] LABORATORYCLIA [id number] [address] MRI BRAIN WO/W IVCONon 06-02 MRI BRAIN WO/W IVCON Normal [facility] Magnesium SerPl-mCncon 06-02 Magnesium [Mass/Vol] 2.0 mg/dL Normal 1.7-2.3 [facility] Comment on above: Order Comment: Speci men Type: BLOOD SPECIMEN Performed By: #### 2 4321-2, 95351-2, 2777-1 ####[facility]ORATORYCLIA [id number] [address] NT-proBNP SerPl-ncon 06-02 Natriuretic peptide.B prohormone N-Terminal [Mass/Vol] 296 pg/mL High <125 [facility] Comment on above: Order Comment: Speci men Type: BLOOD SPECIMEN Performed By: #### H FP, 62676-3 ####[facility] LABORATORYCLIA [id number] [address] OF [facility] POTASSIUM BLDon 06-02-2021 Potassium [Moles/Vol] 3.2 mmol/L Low 3.7-5.1 [facility] Comment on above: Order Comment: Speci men Type: BLOOD SPECIMEN Performed By: #### K 1 ####[facility] LABORATORYCLIA [id number] [address] STATES OF [facility] Phosphate [facility]Pl[facility] 06-02 Phosphate [Mass/Vol] 2.1 mg/dL Low 2.7-4.8 [facility] Comment on above: Order Comment: Speci men Type: BLOOD SPECIMEN Performed By: #### 2 4321-2, 13166-1, 2777-1 ####[facility]ORATORYCLIA [id number] [address] STATES OF [place] Vancomycin random [Mass/Vol] [...] By: #### 4 091-5 ####[facility] LABORATORYCLIA [id number] [address] [place] ALLIED HEALTHon 06-01-2021 [...] By: #### A LLBG ####[facility]ORATORYCLIA [id number] [address] Body temperature 97.52 [degF] Normal [facility] Comment on above: Order Comment: Speci men Type: ARTERIAL BLOOD SPECIMEN Performed By: #### A LLBG ####[facility]ORATORYCLIA [id number] [address] CALCIUM IONIZED, PH CORRECTED 1.13 mmol/L Normal 1.08-1.30 [facility] Comment on above: Order Comment: Speci men Type: ARTERIAL BLOOD SPECIMEN Performed By: #### A LLBG ####[facility]ORATORYCLIA [id number] [address] Calcium.ionized (BldV) [Mass/Vol] 1.12 mmol/L Normal 1.08-1.30 [facility] Comment on above: Order Comment: Speci men Type: ARTERIAL BLOOD SPECIMEN Performed By: #### A LLBG ####[facility]ORATORYCLIA [id number] [address] Carboxyhemoglobin (BldA) [Mass fraction] 1.6 % Normal 0.0-2.0 [facility] Comment on above: Order Comment: Speci men Type: ARTERIAL BLOOD SPECIMEN Result Comment: Carb oxyhemoglobin Reference Range for Smokers: 2.0-8.0% Performed By: #### A LLBG ####[facility]ORATORYCLIA [id number] [address] CO2 (Bld) [Partial pressure] 41 mm Hg Normal 36-46 [facility] Comment on above: Order Comment: Speci men Type: ARTERIAL BLOOD SPECIMEN Performed By: #### A LLBG ####[facility]ATORYCLIA [id number] [address] CO2 [Moles/Vol] 23.0 mmol/L Normal 22-28 [facility] Comment on above: Order Comment: Speci men Type: ARTERIAL BLOOD SPECIMEN Performed By: #### A LLBG ####[facility]ORYCLIA [id number] [address] CO2 adjusted to patient's actual temperature (Bld) [Partial pressure] 40 mmHg Normal 36-46 [facility] Comment on above: Order Comment: Speci men Type: ARTERIAL BLOOD SPECIMEN Performed By: #### A LLBG ####[facility]ORYCLIA [id number] [address] [place] FIO2 40 % Normal [facility] Comment on above: Order Comment: Speci men Type: ARTERIAL BLOOD SPECIMEN Performed By: #### A LLBG ####[facility]ORYCLIA [id number] [address] Glucose [Mass/Vol] 127 mg/dL High 60-105 [facility] Comment on above: Order Comment: Speci men Type: ARTERIAL BLOOD SPECIMEN Performed By: #### A LLBG ####[facility]ATORYCLIA [id number] [address] HCO3 (Bld) [Moles/Vol] 25 mmol/L Normal 22-26 [facility] Comment on above: Order Comment: Speci men Type: ARTERIAL BLOOD SPECIMEN Performed By: #### A LLBG ####[facility]ATORYCLIA [id number] [address] OF [place] Hematocrit (Bld) [Volume fraction] 33.7 % Low 39.0-51.0 [facility] Comment on above: Order Comment: Speci men Type: ARTERIAL BLOOD SPECIMEN Performed By: #### A LLBG ####[facility]ORYCLIA [id number] [address] Hemoglobin (Bld) [Mass/Vol] 10.9 g/dL Low 13.0-17.0 [facility] Comment on above: Order Comment: Speci men Type: ARTERIAL BLOOD SPECIMEN Performed By: #### A LLBG ####[facility]ATORYCLIA [id number] [address] OF [place] INHALED TIDAL VOLUME (ML) 500 Normal [facility] Comment on above: Order Comment: Speci men Type: ARTERIAL BLOOD SPECIMEN Performed By: #### A LLBG ####[facility]ATORYCLIA [id number] [address] INVASIVE VENTILATOR MODE PRVC=Pressure Regulated Volume Control Normal [facility] Comment on above: Order Comment: Speci men Type: ARTERIAL BLOOD SPECIMEN Performed By: #### A LLBG ####[facility]ATORYCLIA [id number] [address] OF [place] Methemoglobin (Bld) [Mass fraction] % Normal 0.0-1.5 [facility] Comment on above: Order Comment: Speci men Type: ARTERIAL BLOOD SPECIMEN Performed By: #### A LLBG ####[facility]ATORYCLIA [id number] [address] OF [place] O2 THERAPY Ventilator Normal [facility] Comment on above: Order Comment: Speci men Type: ARTERIAL BLOOD SPECIMEN Performed By: #### A LLBG ####[facility]ATORYCLIA [id number] [address] [place] Oxygen (Bld) [Partial pressure] 64 mm Hg Low 85-95 [facility] Comment on above: Order Comment: Speci men Type: ARTERIAL BLOOD SPECIMEN Performed By: #### A LLBG ####[facility]ATORYCLIA [id number] [address] [place] Oxygen adjusted to patient's actual temperature (Bld) [Partial pressure] 61.8 mmHg Low 85-95 [facility] Comment on above: Order Comment: Speci men Type: ARTERIAL BLOOD SPECIMEN Performed By: #### A LLBG ####[facility]ATORYCLIA [id number] [address] [place] OXYGEN SATURATION, ARTERIAL 94 % Low 95-98 [facility] Comment on above: Order Comment: Speci men Type: ARTERIAL BLOOD SPECIMEN Performed By: #### A LLBG ####[facility]ATORYCLIA [id number] [address] Oxyhemoglobin (BldA) [Mass fraction] 92 % Low 95-98 [facility] Comment on above: Order Comment: Speci men Type: ARTERIAL BLOOD SPECIMEN Performed By: #### A LLBG ####[facility]ATORYCLIA [id number] [address] PEEP/CPAP 5 cmH2O Normal [facility] Comment on above: Order Comment: Speci men Type: ARTERIAL BLOOD SPECIMEN Performed By: #### A LLBG ####[facility]ATORYCLIA [id number] [address] pH (Bld) 7.40 [pH] Normal 7.35-7.45 [facility] Comment on above: Order Comment: Speci men Type: ARTERIAL BLOOD SPECIMEN Performed By: #### A LLBG ####[facility]ATORYCLIA [id number] [address] pH adjusted to patient's actual temperature (Bld) 7.41 Normal 7.35-7.45 [facility] Comment on above: Order Comment: Speci men Type: ARTERIAL BLOOD SPECIMEN Performed By: #### A LLBG ####[facility]ORYCLIA [id number] [address] Potassium [Moles/Vol] 3.1 mmol/L Low 3.5-5.0 [facility] Comment on above: Order Comment: Speci men Type: ARTERIAL BLOOD SPECIMEN Performed By: #### A LLBG ####[facility]ATORYCLIA [id number] [address] SET VENTILATOR RESPIRATORY RATE (BPM) 18 BPM Normal [facility] Comment on above: Order Comment: Speci men Type: ARTERIAL BLOOD SPECIMEN Performed By: #### A LLBG ####[facility]ATORYCLIA [id number] [address] Sodium [Moles/Vol] 141 mmol/L Normal 136-144 [facility] Comment on above: Order Comment: Speci men Type: ARTERIAL BLOOD SPECIMEN Performed By: #### A LLBG ####[facility]ORATORYCLIA [id number] [address] BASE DEFICIT, ARTERIAL -1.0 mmol/L Normal -2-[address] [facility] Comment on above: Order Comment: Speci men Type: ARTERIAL BLOOD SPECIMEN Performed By: #### A LLBG ####[facility]ATORYCLIA [id number] [address] Body temperature 98.24 [degF] Normal [facility] Comment on above: Order Comment: Speci men Type: ARTERIAL BLOOD SPECIMEN Performed By: #### A LLBG ####[facility]ORATORYCLIA [id number] [address] CALCIUM IONIZED, PH CORRECTED 1.08 mmol/L Normal 1.08-1.30 [facility] Comment on above: Order Comment: Speci men Type: ARTERIAL BLOOD SPECIMEN Performed By: #### A LLBG ####[facility]ORATORYCLIA [id number] [address] Calcium.ionized (BldV) [Mass/Vol] 1.15 mmol/L Normal 1.08-1.30 [facility] Comment on above: Order Comment: Speci men Type: ARTERIAL BLOOD SPECIMEN Performed By: #### A LLBG ####[facility]ORATORYCLIA [id number] [address] Carboxyhemoglobin (BldA) [Mass fraction] 1.4 % Normal 0.0-2.0 [facility] Comment on above: Order Comment: Speci men Type: ARTERIAL BLOOD SPECIMEN Result Comment: Carb oxyhemoglobin Reference Range for Smokers: 2.0-8.0% Performed By: #### A LLBG ####[facility]ORATORYCLIA [id number] [place] [address] [place] CO2 (Bld) [Partial pressure] 59 mm Hg High 36-46 [facility] Comment on above: Order Comment: Speci men Type: ARTERIAL BLOOD SPECIMEN Performed By: #### A LLBG ####[facility]ATORYCLIA [id number] [address] CO2 [Moles/Vol] 24.5 mmol/L Normal 22-28 [facility] Comment on above: Order Comment: Speci men Type: ARTERIAL BLOOD SPECIMEN Performed By: #### A LLBG ####[facility]ATORYCLIA [id number] [address] CO2 adjusted to patient's actual temperature (Bld) [Partial pressure] 58 mmHg High 36-46 [facility] Comment on above: Order Comment: Speci men Type: ARTERIAL BLOOD SPECIMEN Performed By: #### A LLBG ####[facility]ATORYCLIA [id number] [address] FIO2 40 % Normal [facility] Comment on above: Order Comment: Speci men Type: ARTERIAL BLOOD SPECIMEN Performed By: #### A LLBG ####[facility]ORYCLIA [id number] [address] Glucose [Mass/Vol] 128 mg/dL High 60-105 [facility] Comment on above: Order Comment: Speci men Type: ARTERIAL BLOOD SPECIMEN Performed By: #### A LLBG ####[facility]ORYCLIA [id number] [address] [place] HCO3 (Bld) [Moles/Vol] 26 mmol/L Normal 22-26 [facility] Comment on above: Order Comment: Speci men Type: ARTERIAL BLOOD SPECIMEN Performed By: #### A LLBG ####[facility]ATORYCLIA [id number] [address] Hematocrit (Bld) [Volume fraction] 35.6 % Low 39.0-51.0 [facility] Comment on above: Order Comment: Speci men Type: ARTERIAL BLOOD SPECIMEN Performed By: #### A LLBG ####[facility]ATORYCLIA [id number] [address] [place] Hemoglobin (Bld) [Mass/Vol] 11.5 g/dL Low 13.0-17.0 [facility] Comment on above: Order Comment: Speci men Type: ARTERIAL BLOOD SPECIMEN Performed By: #### A LLBG ####[facility]ORYCLIA [id number] [address] INHALED TIDAL VOLUME (ML) 500 Normal [facility] Comment on above: Order Comment: Speci men Type: ARTERIAL BLOOD SPECIMEN Performed By: #### A LLBG ####[facility]ATORYCLIA [id number] [address] INVASIVE VENTILATOR MODE PRVC=Pressure Regulated Volume Control [facility] Comment on above: Order Comment: Speci men Type: ARTERIAL BLOOD SPECIMEN Performed By: #### A LLBG ####[facility]ATORYCLIA [id number] [address] Methemoglobin (Bld) [Mass fraction] % Normal 0.0-1.5 [facility] Comment on above: Order Comment: Speci men Type: ARTERIAL BLOOD SPECIMEN Performed By: #### A LLBG ####[facility]ATORYCLIA [id number] [address] OF [place] O2 THERAPY Ventilator Normal [facility] Comment on above: Order Comment: Speci men Type: ARTERIAL BLOOD SPECIMEN Performed By: #### A LLBG ####[facility]ATORYCLIA [id number] [address] [place] Oxygen (Bld) [Partial pressure] 88 mm Hg Normal 85-95 [facility] Comment on above: Order Comment: Speci men Type: ARTERIAL BLOOD SPECIMEN Performed By: #### A LLBG ####[facility]ORYCLIA [id number] [address] [place] Oxygen adjusted to patient's actual temperature (Bld) [Partial pressure] 86.5 mmHg Normal 85-95 [facility] Comment on above: Order Comment: Speci men Type: ARTERIAL BLOOD SPECIMEN Performed By: #### A LLBG ####[facility]ATORYCLIA [id number] [address] OXYGEN SATURATION, ARTERIAL 95 % Normal 95-98 [facility] Comment on above: Order Comment: Speci men Type: ARTERIAL BLOOD SPECIMEN Performed By: #### A LLBG ####[facility]ORYCLIA [id number] [address] Oxyhemoglobin (BldA) [Mass fraction] 93 % Low 95-98 [facility] Comment on above: Order Comment: Speci men Type: ARTERIAL BLOOD SPECIMEN Performed By: #### A LLBG ####[facility]ORYCLIA [id number] [address] PEEP/CPAP 5 cmH2O Normal [facility] Comment on above: Order Comment: Speci men Type: ARTERIAL BLOOD SPECIMEN Performed By: #### A LLBG ####[facility]ORYCLIA [id number] [address] pH (Bld) 7.27 [pH] Low 7.35-7.45 [facility] Comment on above: Order Comment: Speci men Type: ARTERIAL BLOOD SPECIMEN Performed By: #### A LLBG ####[facility]ORYCLIA [id number] [address] pH adjusted to patient's actual temperature (Bld) 7.28 Low 7.35-7.45 [facility] Comment on above: Order Comment: Speci men Type: ARTERIAL BLOOD SPECIMEN Performed By: #### A LLBG ####[facility]ORYCLIA [id number] [address] Potassium [Moles/Vol] 3.3 mmol/L Low 3.5-5.0 [facility] Comment on above: Order Comment: Speci men Type: ARTERIAL BLOOD SPECIMEN Performed By: #### A LLBG ####[facility]ORYCLIA [id number] [address] SET VENTILATOR RESPIRATORY RATE (BPM) 14 BPM Normal [facility] Comment on above: Order Comment: Speci men Type: ARTERIAL BLOOD SPECIMEN Performed By: #### A LLBG ####[facility]ORATORYCLIA [id number] [address] Sodium [Moles/Vol] 141 mmol/L Normal 136-144 [facility] Comment on above: Order Comment: Speci men Type: ARTERIAL BLOOD SPECIMEN Performed By: #### A LLBG ####[facility]ORATORYCLIA [id number] [address] Bacteria CSF Culton 06-01-19 22 Bacteria identified Cx Nom (CSF) CULTURE, CSF: No growth 14 days GRAM STAIN: No organisms seen Rare Polymorphonuclear leukocytes Moderate Red Blood Cells Gram stain performed on cytospun specimen. Normal [facility] Comment on above: Performed By: #### 6 06-4 ####[facility]ORATORYCLIA [id number] [address] [place] Bacteria Spec Resp Culton Bacteria identified Respiratory culture Nom (Unsp spec) CULTURE, RESPIRATORY: No growth 2 days GRAM STAIN: No organisms seen No Polymorphonuclear Leukocytes Normal [facility] Comment on above: Performed By: #### 3 2355-0 ####[facility]ORATORYCLIA [id number] [address] OF [facility] Basic metabolic 2000 panelon 06-01-2021 Anion gap [Moles/Vol] 8 mmol/L Low 9-18 [facility] Comment on above: Order Comment: Speci men Type: BLOOD SPECIMEN Performed By: #### 2 4321-2, 13677-7, 2777-1 ####[facility]ORATORYCLIA [id number] [address] Calcium [Mass/Vol] 7.8 mg/dL Low 8.5-10.2 [facility] Comment on above: Order Comment: Speci men Type: BLOOD SPECIMEN Performed By: #### 2 4321-2, , 2776-05 ####[facility]ORATORYCLIA [id number] [address] STATES OF [facility] Chloride [Moles/Vol] 109 mmol/L High 97-105 [facility] Comment on above: Order Comment: Speci men Type: BLOOD SPECIMEN Performed By: #### 2 1-2, , 2776-05 ####[facility]ORATORYCLIA [id number] [address] STATES [facility] CO2 [Moles/Vol] 26 mmol/L Normal 22-30 [facility] Comment on above: Order Comment: Speci men Type: BLOOD SPECIMEN Performed By: #### 2 1-2, , 2776-05 ####[facility]ATORYCLIA [id number] [address] STATES OF [facility] Creatinine [Mass/Vol] 0.82 mg/dL Normal 0.73-1.22 [facility] Comment on above: Order Comment: Speci men Type: BLOOD SPECIMEN Performed By: #### 2 4320-2, , 2776-05 ####[facility]ORATORYCLIA [id number] [address] [place] GFR/1.73 sq M.predicted [...] 2 1-2, , 2776-05 ####[facility]ORATORYCLIA [id number] [place] [address] [place] Glucose [Mass/Vol] 105 mg/dL High 74-99 [facility] Comment on above: Order Comment: Speci men Type: BLOOD SPECIMEN Result Comment: The [place] Diabetes Association (ADA) provides guidance for cutoff [...] Standards of Medical Care in Diabetes 2016, [place] [employer]. Diabetes Care. 2016.39(Suppl 1). Performed By: #### 2 4320-2, , 2776-05 ####[facility]ORATORYCLIA [id number] [place] [address] [place] Potassium [Moles/Vol] 3.8 mmol/L Normal 3.7-5.1 [facility] Comment on above: Order Comment: Speci men Type: BLOOD SPECIMEN Performed By: #### 2 4320-2, , 2776-05 ####[facility]ATORYCLIA [id number] [place] [address] [place] Sodium [Moles/Vol] 143 mmol/L Normal 136-144 [facility] Comment on above: Order Comment: Speci men Type: BLOOD SPECIMEN Performed By: #### 2 4320-2, , 2776-05 ####[facility]ATORYCLIA [id number] [address] [place] Urea nitrogen [Mass/Vol] 15 mg/dL Normal 9-24 [facility] Comment on above: Order Comment: Speci men Type: BLOOD SPECIMEN Performed By: #### 2 4320-2, , 2777-1 ####[facility]ATORYCLIA [id number] [address] CBC panel Auto (Bld)on 06-01 Erythrocyte distribution width (RBC) [Ratio] 15.4 % High 11.5-15.0 [facility] Comment on above: Order Comment: Speci men Type: BLOOD SPECIMEN Performed By: #### 5 8410-2 ####[facility]ATORYCLIA [id number] [address] Hematocrit (Bld) [Volume fraction] 38.4 % Low 39.0-51.0 [facility] Comment on above: Order Comment: Speci men Type: BLOOD SPECIMEN Performed By: #### 5 8410-2 ####[facility]ATORYCLIA [id number] [address] Hemoglobin (Bld) [Mass/Vol] 11.1 g/dL Low 13.0-17.0 [facility] Comment on above: Order Comment: Speci men Type: BLOOD SPECIMEN Performed By: #### 5 8410-2 ####[facility]ATORYCLIA [id number] [address] MCH (RBC) [Entitic mass] 26.9 pg Normal 26.0-34.0 [facility] Comment on above: Order Comment: Speci men Type: BLOOD SPECIMEN Performed By: #### 5 8410-2 ####[facility]ATORYCLIA [id number] [address] MCHC (RBC) [Mass/Vol] 28.9 g/dL Low 30.5-36.0 [facility] Comment on above: Order Comment: Speci men Type: BLOOD SPECIMEN Performed By: #### 5 8410-2 ####[facility]ATORYCLIA [id number] [address] MCV (RBC) [Entitic vol] 93.2 fL Normal 80.0-100.0 [facility] Comment on above: Order Comment: Speci men Type: BLOOD SPECIMEN Performed By: #### 5 8410-2 ####[facility]ORATORYCLIA [id number] [address] Nucleated RBC (Bld) [#/Vol] 10*3/uL Normal <0.01 [facility] Comment on above: Order Comment: Speci men Type: BLOOD SPECIMEN Performed By: #### 5 8410-2 ####[facility]ATORYCLIA [id number] [address] Platelet mean volume (Bld) [Entitic vol] 10.2 fL Normal 9.0-12.7 [facility] Comment on above: Order Comment: Speci men Type: BLOOD SPECIMEN Performed By: #### 5 8410-2 ####[facility]ATORYCLIA [id number] [address] Platelets (Bld) [#/Vol] 231 10*3/uL Normal 150-400 [facility] Comment on above: Order Comment: Speci men Type: BLOOD SPECIMEN Performed By: #### 5 8410-2 ####[facility]ATORYCLIA [id number] [address] RBC (Bld) [#/Vol] 4.12 10*6/uL Low 4.20-6.00 [facility] Comment on above: Order Comment: Speci men Type: BLOOD SPECIMEN Performed By: #### 5 8410-2 ####[facility]ORATORYCLIA [id number] [address] OF [facility] WBC (Bld) [#/Vol] 10.99 10*3/uL Normal 3.70-11.00 [facility] Comment on above: Order Comment: Speci men Type: BLOOD SPECIMEN Performed By: #### 5 8410-2 ####[facility]ORYCLIA [id number] [address] OF [facility] CONSULT PROGon 06-01-2021 CONSULT PROG Normal [facility] CSF MANUAL DIFFon 06-01-2021 DIF TTL, CSF 100 cells counted Normal [facility] Comment on above: Order Comment: Speci men Type: CEREBROSPINAL FLUID Performed By: #### 3 4563-7, [id number] ####[facility]ATORYCLIA [id number] [place], [place] [id number] [place] [address] LYMPH%, CSF 11 % Low 50-90 [facility] Comment on above: Order Comment: Speci men Type: CEREBROSPINAL FLUID Performed By: #### 3 4563-7, [id number] ####[facility]ATORYCLIA [id number] [address] OF [place] MONO%, CSF 10 % Normal 10-50 [facility] Comment on above: Order Comment: Speci men Type: CEREBROSPINAL FLUID Performed By: #### 3 4563-7, [id number] ####[facility]ORYCLIA [id number] [address] NEUT%, CSF 79 % High 0-3 [facility] Comment on above: Order Comment: Speci men Type: CEREBROSPINAL FLUID Performed By: #### 3 4563-7, [id number] ####[facility]ATORYCLIA [id number] [address] BRAIN WO IVCONon 06-01-19 CT BRAIN WO IVCON Normal [facility] Cell count panel (CSF)on Clarity (CSF) Clear Normal Clear [facility] Comment on above: Order Comment: Speci men Type: CEREBROSPINAL FLUID Performed By: #### 3 4563-7, [id number] ####[facility]ATORYCLIA [id number] [address] Clarity (Unsp spec) Not Indicated Normal Clear [facility] Comment on above: Order Comment: Speci men Type: CEREBROSPINAL FLUID Performed By: #### 3 4563-7, [id number] ####[facility]ORYCLIA [id number] [address] Color (CSF) Colorless Normal Colorless [facility] Comment on above: Order Comment: Speci men Type: CEREBROSPINAL FLUID Performed By: #### 3 4563-7, [id number] ####[facility]ORATORYCLIA [id number] [address] Color (Spun CSF) Not Indicated Normal Colorless [facility] Comment on above: Order Comment: Speci men Type: CEREBROSPINAL FLUID Performed By: #### 3 4563-7, [id number] ####[facility]ORATORYCLIA [id number] [address] CSF TUBE NUMBER Sterile Container Normal [facility] Comment on above: Order Comment: Speci men Type: CEREBROSPINAL FLUID Performed By: #### 3 4563-7, [id number] ####[facility]ORATORYCLIA [id number] [address] RBC Manual cnt (CSF) [#/Vol] 171 cells/uL High 0-5 [facility] Comment on above: Order Comment: Speci men Type: CEREBROSPINAL FLUID Performed By: #### 3 4563-7, [id number] ####[facility]ATORYCLIA [id number] [address] WBC Manual cnt (CSF) [#/Vol] 5 cells/uL Normal 0-5 [facility] Comment on above: Order Comment: Speci men Type: CEREBROSPINAL FLUID Performed By: #### 3 4563-7, [id number] ####[facility]ORATORYCLIA [id number] [address] FUNGAL CULTUREon 06-01-2021 FUNGAL CULTURE CULTURE, FUNGAL: No Fungus isolated after 28 days Normal [facility] Comment on above: Performed By: #### F CUL ####[facility]ORATORYCLIA [id number] [address] Glucose CSF-mCncon Glucose (CSF) [Mass/Vol] 78 [...] Glucose HK (GLUC3) [package insert V 12.0 [place]]. [employer], [place], [place]. September 2015. 2. Michelle Moore, Michelle Manjarrez (2015). Chapter 7: Glucose and Lactate. F. Irina rose al.(eds.), Cerebrospinal Fluid in Clinical Neurology. [place]: [employer]. Performed By: #### 2 342-4, 2880-3 ####[facility]ORATORYCLIA [id number] [place], [place] [address] [place] [address] [place] HERPES SIMPLEX CSFon 022 HERPES SIMPLEX CSF HSV PCR SPEC SOURCE: Cerebrospinal Fluid HSV-1: Negative for Herpes Simplex Virus Type 1 by PCR HSV-2: Negative for Herpes Simplex Virus Type 2 by PCR Normal [facility] Comment on above: Performed By: #### [facility] ####[facility] REFERENCE LABCLIA [id number] [id number] [address] [place] Lactate (Bld) [Moles/Vol]on 06-01-2021 Lactate [Moles/Vol] 0.5 mmol/L Normal 0.5-2.2 [facility] Comment on above: Order Comment: Speci men Type: BLOOD SPECIMEN Performed By: #### 3 2693-4 ####[facility] LABORATORYCLIA [id number] [place] [address] [facility] [place] MENINGITIS ENCEPHALITIS BIOF IREon 06-01-2021 MENINGITIS ENCEPHALITIS BIOFIRE Negative Normal [facility] Comment on above: Order Comment: Speci men Type: CEREBROSPINAL FLUID Performed By: #### M GEBF ####[facility] [id number] [place] [address] Magnesium SerPl-mCncon 06-01 Magnesium [Mass/Vol] 2.2 mg/dL Normal 1.7-2.3 [facility] Comment on above: Order Comment: Speci men Type: BLOOD SPECIMEN Performed By: #### 2 4321-2, 30802-0, 8997-1 ####[facility] LABORATORYCLIA [id number] [place], [place] [address] [place] [address] [place] Microorganism Spec Culton Microorganism identified Cx Nom (Unsp spec) CULTURE, AFB: No Acid Fast Bacilli isolated after 42 days AFB STAIN: No acid fast bacilli seen by flurochrome stain Normal [facility] Comment on above: Performed By: #### 1 1475-1 ####[facility] LABORATORYCLIA [id number] [address] OF [place] PROCALCITONIN (LAB)on 2021 Procalcitonin [Mass/Vol] 0.08 ng/mL Normal <0.09 [facility] Comment on above: Order Comment: Speci men Type: BLOOD SPECIMEN Result Comment: For a guided interpretation of test results, please visit the [facility] in Procalcitonin Calculator, [email or web address]. Performed By: #### P ROCAL ####[facility] LABORATORYCLIA [id number] [address] [place] Phosphate SerPl-ncon 06-01 Phosphate [Mass/Vol] 3.5 mg/dL Normal 2.7-4.8 [facility] Comment on above: Order Comment: Speci men Type: BLOOD SPECIMEN Performed By: #### 2 4321-2, 35991-5, 2776-1 ####[facility] LABORATORYCLIA [id number] [address] [place] Prot CSF-mCncon 06-01-2021 Protein (CSF) [Mass/Vol] 52 mg/dL High 15-45 [facility] Comment on above: Order Comment: Speci men Type: CEREBROSPINAL FLUID Performed By: #### 2 342-4, 2880-3 ####[facility] LABORATORYCLIA [id number] [address] [place] Vancomycin random [Mass/Vol] [...] By: #### 4 091-5 ####[facility] LABORATORYCLIA [id number] [address] [place] XR CHEST 1V [...] ALLIED HEALTHon 05-31-2021 ALLIED HEALTH HNO ID: [id number] Author: Christina Lnyne RT(R) Service: Radiology Author Type: Technologist Type: Allied Health Filed: 05/31/2021 5:48 PM Note Text: MRI tomorrow per RN. Normal [facility] ALLIED HEALTH Normal [facility] ALLIED HEALTH Normal [facility] HEALTH Normal [facility] ANES [...] By: #### 6 00-7 ####[facility] LABORATORYCLIA [id number] [address] OF [facility] Bacteria CSF Culton 05-31-19 22 Bacteria identified Cx Nom (CSF) CULTURE, CSF: No growth 14 days GRAM STAIN: No organisms seen Rare Polymorphonuclear leukocytes Rare Red Blood Cells Gram stain performed on cytospun specimen. Normal [facility] Comment on above: Performed By: #### 6 06-4 ####[facility]ATORYCLIA [id number] [place] [address] [place] Basic metabolic 2000 panelon 05-31-2021 Anion gap [Moles/Vol] 9 mmol/L Normal 9-18 [facility] Comment on above: Order Comment: Speci men Type: BLOOD SPECIMEN Performed By: #### 2 777-1, 25244-0, ####[facility] LABORATORYCLIA [id number] [address] STATES OF [facility] Calcium [Mass/Vol] 8.2 mg/dL Low 8.5-10.2 [facility] Comment on above: Order Comment: Speci men Type: BLOOD SPECIMEN Performed By: #### 2 777-1, , ####[facility]ATORYCLIA [id number] [address] [place] Chloride [Moles/Vol] 110 mmol/L High 97-105 [facility] Comment on above: Order Comment: Speci men Type: BLOOD SPECIMEN Performed By: #### 2 777-1, , ####[facility]ATORYCLIA [id number] [address] STATES OF [facility] CO2 [Moles/Vol] 27 mmol/L Normal 22-30 [facility] Comment on above: Order Comment: Speci men Type: BLOOD SPECIMEN Performed By: #### 2 777-1, , ####[facility]ATORYCLIA [id number] [place] [address] [place] Creatinine [Mass/Vol] 0.85 mg/dL Normal 0.73-1.22 [facility] Comment on above: Order Comment: Speci men Type: BLOOD SPECIMEN Performed By: #### 2 777-1, 18220-1, ####[facility]ATORYCLIA [id number] [place] [address] [place] GFR/1.73 sq M.predicted [...] actual GFR. Performed By: #### 2 777-1, 81438-1, 42742-2 ####[facility] LABORATORYCLIA [id number] [place] [address] [place] Glucose [Mass/Vol] 111 mg/dL High 74-99 [facility] Comment on above: Order Comment: Speci men Type: BLOOD SPECIMEN Result Comment: The [place] Diabetes Association (ADA) provides guidance for cutoff [...] Standards of Medical Care in Diabetes 2016, [place] [employer] Association. Diabetes Care. 2016.39(Suppl 1). Performed By: #### 2 777-1, 70899-5, 55063-4 ####[facility] LABORATORYCLIA [id number] [place] [address] [place] Potassium [Moles/Vol] 3.7 mmol/L Normal 3.7-5.1 [facility] Comment on above: Order Comment: Speci men Type: BLOOD SPECIMEN Performed By: #### 2 777-1, 47948-8, ####[facility]ORATORYCLIA [id number] [address] STATES [facility] Sodium [Moles/Vol] 146 mmol/L High 136-144 [facility] Comment on above: Order Comment: Speci men Type: BLOOD SPECIMEN Performed By: #### 2 777-1, 28322-7, ####[facility] LABORATORYCLIA [id number] [address] Urea nitrogen [Mass/Vol] 16 mg/dL Normal 9-24 [facility] Comment on above: Order Comment: Speci men Type: BLOOD SPECIMEN Performed By: #### 2 777-1, 27145-8, ####[facility] LABORATORYCLIA [id number] [address] OF [facility] CASE MGT INIT ASSESon 2021 CASE MGT INIT ASSES Normal [facility] CBC W Auto Differential pane l (Bld)on 05-31-2021 Basophils (Bld) [#/Vol] 0.04 10*3/uL Normal <0.11 [facility] Comment on above: Order Comment: Speci men Type: BLOOD SPECIMEN Performed By: #### 5 7021-8 ####[facility] LABORATORYCLIA [id number] [address] [place] Basophils/100 WBC (Bld) 0.5 % Normal [facility] Comment on above: Order Comment: Speci men Type: BLOOD SPECIMEN Performed By: #### 5 7021-8 ####[facility]ATORYCLIA [id number] [address] Differential cell count method Nom (Bld) Auto Normal [facility] Comment on above: Order Comment: Speci men Type: BLOOD SPECIMEN Performed By: #### 5 7021-8 ####[facility] LABORATORYCLIA [id number] [address] [place] Eosinophils (Bld) [#/Vol] 0.27 10*3/uL Normal <0.46 [facility] Comment on above: Order Comment: Speci men Type: BLOOD SPECIMEN Performed By: #### 5 7021-8 ####[facility] LABORATORYCLIA [id number] [address] Eosinophils/100 WBC (Bld) 3.3 % Normal [facility] Comment on above: Order Comment: Speci men Type: BLOOD SPECIMEN Performed By: #### 5 7021-8 ####[facility]ORATORYCLIA [id number] [address] Erythrocyte distribution width (RBC) [Ratio] 15.4 % High 11.5-15.0 [facility] Comment on above: Order Comment: Speci men Type: BLOOD SPECIMEN Performed By: #### 5 7021-8 ####[facility] LABORATORYCLIA [id number] [address] Hematocrit (Bld) [Volume fraction] 37.9 % Low 39.0-51.0 [facility] Comment on above: Order Comment: Speci men Type: BLOOD SPECIMEN Performed By: #### 5 7021-8 ####[facility] LABORATORYCLIA [id number] [address] Hemoglobin (Bld) [Mass/Vol] 11.5 g/dL Low 13.0-17.0 [facility] Comment on above: Order Comment: Speci men Type: BLOOD SPECIMEN Performed By: #### 5 7021-8 ####[facility]ORATORYCLIA [id number] [address] IMMATURE GRAN % 0.4 % Normal [facility] Comment on above: Order Comment: Speci men Type: BLOOD SPECIMEN Performed By: #### 5 7021-8 ####[facility]ORATORYCLIA [id number] [address] IMMATURE GRAN ABS 0.03 k/uL Normal <0.10 [facility] Comment on above: Order Comment: Speci men Type: BLOOD SPECIMEN Performed By: #### 5 7021-8 ####[facility] LABORATORYCLIA [id number] [address] Lymphocytes (Bld) [#/Vol] 1.90 10*3/uL Normal 1.00-4.00 [facility] Comment on above: Order Comment: Speci men Type: BLOOD SPECIMEN Performed By: #### 5 7021-8 ####[facility] LABORATORYCLIA [id number] [address] Lymphocytes/100 WBC (Bld) 23.0 % Normal [facility] Comment on above: Order Comment: Speci men Type: BLOOD SPECIMEN Performed By: #### 5 7021-8 ####[facility] LABORATORYCLIA [id number] [address] MCH (RBC) [Entitic mass] 28.0 pg Normal 26.0-34.0 [facility] Comment on above: Order Comment: Speci men Type: BLOOD SPECIMEN Performed By: #### 5 7021-8 ####[facility] LABORATORYCLIA [id number] [address] MCHC (RBC) [Mass/Vol] 30.3 g/dL Low 30.5-36.0 [facility] Comment on above: Order Comment: Speci men Type: BLOOD SPECIMEN Performed By: #### 5 7021-8 ####[facility] LABORATORYCLIA [id number] [address] MCV (RBC) [Entitic vol] 92.4 fL Normal 80.0-100.0 [facility] Comment on above: Order Comment: Speci men Type: BLOOD SPECIMEN Performed By: #### 5 7021-8 ####[facility] LABORATORYCLIA [id number] [address] Monocytes (Bld) [#/Vol] 0.60 10*3/uL Normal <0.87 [facility] Comment on above: Order Comment: Speci men Type: BLOOD SPECIMEN Performed By: #### 5 7021-8 ####[facility]ATORYCLIA [id number] [address] Monocytes/100 WBC (Bld) 7.3 % Normal [facility] Comment on above: Order Comment: Speci men Type: BLOOD SPECIMEN Performed By: #### 5 7021-8 ####[facility]ATORYCLIA [id number] [address] Neutrophils (Bld) [#/Vol] 5.41 10*3/uL Normal 1.45-7.50 [facility] Comment on above: Order Comment: Speci men Type: BLOOD SPECIMEN Performed By: #### 5 7021-8 ####[facility]ATORYCLIA [id number] [address] Neutrophils/100 WBC (Bld) 65.5 % Normal [facility] Comment on above: Order Comment: Speci men Type: BLOOD SPECIMEN Performed By: #### 5 7021-8 ####[facility]ATORYCLIA [id number] [address] Nucleated RBC (Bld) [#/Vol] 10*3/uL Normal <0.01 [facility] Comment on above: Order Comment: Speci men Type: BLOOD SPECIMEN Performed By: #### 5 7021-8 ####[facility]ATORYCLIA [id number] [address] Nucleated RBC/100 WBC (Bld) [Ratio] 0.0 /100 WBC Normal 0.0 [facility] Comment on above: Order Comment: Speci men Type: BLOOD SPECIMEN Performed By: #### 5 7021-8 ####[facility]ATORYCLIA [id number] [address] Platelet mean volume (Bld) [Entitic vol] 9.8 fL Normal 9.0-12.7 [facility] Comment on above: Order Comment: Speci men Type: BLOOD SPECIMEN Performed By: #### 5 7021-8 ####[facility]ORATORYCLIA [id number] [address] OF [facility] Platelets (Bld) [#/Vol] 251 10*3/uL Normal 150-400 [facility] Comment on above: Order Comment: Speci men Type: BLOOD SPECIMEN Performed By: #### 5 7021-8 ####[facility] LABORATORYCLIA [id number] [address] STATES OF [facility] RBC (Bld) [#/Vol] 4.10 10*6/uL Low 4.20-6.00 [facility] Comment on above: Order Comment: Speci men Type: BLOOD SPECIMEN Performed By: #### 5 7021-8 ####[facility] LABORATORYCLIA [id number] [address] WBC (Bld) [#/Vol] 8.25 10*3/uL Normal 3.70-11.00 [facility] Comment on above: Order Comment: Speci men Type: BLOOD SPECIMEN Performed By: #### 5 7021-8 ####[facility] LABORATORYCLIA [id number] [address] CONSULTon 05-31-2021 CONSULT Normal [facility] CONSULT Normal [facility] CONSULT Normal [facility] CT BRAIN WO IVCONon 05-31-[address] BRAIN WO IVCON Normal [facility] CT BRAIN WO IVCON Normal [facility] CT CHEST WO IVCONon 05-31-[address] CHEST WO IVCON Normal [facility] Cortis SerPl-mCncon 05-31-19 22 Cortisol [Mass/Vol] 31.0 ug/dL High AM: 5.3-22.5, PM: 3.4-16.8 [facility] Comment on above: Order Comment: Speci men Type: BLOOD SPECIMEN Result Comment: Prov ided reference range is from 6-10 AM sample collection time.Cortisol Reference Range: 6-10 AM = 4.8-19.5 ug/dL, 4-8 PM = 2.5-11.9 ug/dL Performed By: #### 2 143-6, 3016-3 ####[facility] LABORATORYCLIA [id number] [address] Cryptoc Ag Spec Ql LAon 05-08 Cryptococcus sp Ag LA Ql (Unsp spec) Negative Normal [facility] Comment on above: Performed By: #### 4 3228-6 ####[facility] LABORATORYCLIA [id number] [address] [place] HISTORY PHYSICALon 2 HISTORY PHYSICAL Normal [facility] Magnesium SerPl-mCncon 05-31 Magnesium [Mass/Vol] 2.2 mg/dL Normal 1.7-2.3 [facility] Comment on above: Order Comment: Speci men Type: BLOOD SPECIMEN Performed By: #### 2 777-1, 84517-7, ####[facility] LABORATORYCLIA [id number] [address] NURSING PROGon 05-31-2021 NURSING PROG Normal [facility] NUTRITIONon 05-31-2021 NUTRITION Normal [facility] OPERATIVE NOon 05-31-2021 OPERATIVE NO Normal [facility] Phosphate SerPl-mCncon 05-31 Phosphate [Mass/Vol] 3.3 mg/dL Normal 2.7-4.8 [facility] Comment on above: Order Comment: Speci men Type: BLOOD SPECIMEN Performed By: #### 2 777-1, 10604-2, ####[facility] LABORATORYCLIA [id number] [address] STAPH AUREUS PCRon 2 S. aureus and MRSA panel MEGAN+probe (Nose) Normal Negative [facility] Comment on above: Order Comment: Speci men Type: SWAB OF INTERNAL NOSE Result Comment: Nega tive for Staphylococcus aureus by PCR.Negative for MRSA by PCR Performed By: #### S APCR ####[facility] LABORATORYCLIA [id number] [address] [place] TSH SerPl-aCncon 05-31-2021 TSH Qn 0.829 m[IU]/L Normal 0.270-4.200 [facility] Comment on above: Order Comment: Speci men Type: BLOOD SPECIMEN Performed By: #### 2 143-6, 3016-3 ####[facility] LABORATORYCLIA [id number] [place] [address] [place] XR CHEST 1V FRONTALon 2021 XR CHEST 1V FRONTAL Normal [facility] XR CHEST 1V FRONTAL Normal [facility] Blood Cultureon 05-30-2021 Bacteria identified Cx Nom (Bld) Culture Result - No growth 5 days Normal [facility] Comment on above: Performed By: #### C AD #### [facility] [address] [place], [place] [address] [place] [address] Bacteria identified Cx Nom (Bld) Sp. Request/Comment: - 8.2MLS Culture Result - No growth 5 days Normal [facility] Comment on above: Performed By: #### C AD #### [facility] [address] [place], [place] [address] [place] [address] C-Reactive Proteinon 022 C-Reactive Protein 1.7 mg/dL High <0.9 [facility] Comment on above: Performed By: #### C RP ####[facility] [address] [place], [place] [address] CNDSon 05-30-2021 [facility] HNO ID: [id number] Author: Columba Carroll PA-C Service: Hospital Medicine Author Type: Physician Machine Maintenance Mechanic Type: Discharge Summary Filed: 05/30/2021 12:49 PM Note Text: ----- Attestation signed by Ayaka Menjivar MD at 06/01/2021 12:53 PM Attending Note I have personally reviewed the PA/DIGITAL STRATEGIST SENIOR MANAGER note. Agree with above assessment and [...] Team: Attending Provider: Ayaka Menjivar MD Physician Machine Maintenance Mechanic: Columba Carroll PA-C Consulting: Lilo Mendoza MD [...] consulted. Neurology suggested empiric abx coverage for ASSISTANT PRODUCTION MANAGER infection Rocephin and Vancomycin was started. Tele-neuro also suggested an MRI brain be obtained prior to LP to check TRIM SETTER HELPER shunt and decrease risk of herniation in neurosurgery capable facility. Transfer to [facility] requested. Sepsis lactate was 1.3. ABG showed pO2 67.8, placed patient on 2L NC.Follow B1, B12, and RPR pending. 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 LABS AND PROCEDURES [...] q 1 (more content not included)... Normal [facility] CONSULTon 05-30-2021 CONSULT HNO ID: [id number] Author: Juan Carlos Mckenzie MD Service: Infectious [...] vertebrae with counting from the craniocervical junction. Early Learning Teacher: PSCShilpa Transcribe Date/Time: May 29 2021 8:59P Dictated by : CARLOS YOUNGER MD This examination was interpreted and the report reviewed and electronically signed by: CARLOS YOUNGER MD on May 29 2021 9:14PM EST ? CT CERVICAL SPINE WO (more content not included)... Normal [facility] CONSULT HNO ID: [id number] Author: Lilo Mendoza MD Service: Neurology General Author Type: Physician Type: Consults Filed: 05/30/2021 10:56 AM Note Text: [facility] TeleNeurology Consult Note Patient seen using [facility]. Recommendations are placed in the chart. Please review. For questions after hours, when teleneurologist is not available, for [place]: Please Page [phone] for the [facility] Neurology Group from 12pm to 8Am Admitting Provider/Consulted by:Hermes Roca MD Time of Note:05/30/2021 Patient Name:Andrew Sifuentes Admit Date:05/29/2021 Hospital Day:0 CC: altered mental status History of Present Illness: Andrew Sifuentes is a 71 year old unknown handed male with limited information about past medical history including venous insufficiency s/p EVLT, hydrocepalus s/p TRIM SETTER HELPER shunt in 1987 with multiple revisions and [...] Right Lef (more content not included)... 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 Age: [age] year old Allergies: ALLERGIES Allergen [...] No results found for: [place] Shannon Gutierres, [facility] Normal [facility] Creatinineon 05-30-2021 Creatinine [Mass/Vol] 0.86 mg/dL Normal 0.73-1.22 [facility] Comment on above: Performed By: #### C RET1 ####[facility] [address] [place] [phone] eGFR- Amer. >60 [facility] Comment on above: Performed By: #### C RET1 ####[facility] [address] [place] [phone] eGFR-All Other Races >60 Normal [facility] Comment on above: Result Comment: [...] [email or web address]. Performed By: #### C RET1 ####[facility] [address] [place] [phone] Crypto Antigen Deton 01-24-2 022 Crypto Antigen Det Sp. Request/Comment: - SST Test Result - Duplicate request Account Credited [facility] Comment on above: Performed By: #### C AD #### [facility] [address] [place] [address] [facility] [address] [place], [place] [address] Crypto Antigen Det Sp. Request/Comment: - SST Test Result - Cryptococcal antigen detection result: Negative By latex agglutination [facility] Comment on above: Performed By: #### C AD #### [facility] [address] [place] [address] [facility] [address] [place] [address] ED NOTEon 05-30-2021 ED NOTE HNO ID: [id number] Author: Aletha Lopez RN Service: ? Author Type: Registered Nurse Type: ED Notes Filed: 05/29/2021 11:16 PM Note Text: Patient changed for incontinent urine, labs redrawn and sent. Patient aware of plan to be admitted and agrees with plan [facility] HISTORY PHYSICALon HISTORY PHYSICAL Normal [facility] HISTORY PHYSICAL HNO ID: [id number] Author: Hermes Roca MD Service: Hospital Medicine Author Type: Physician Type: HANDP Filed: 05/30/2021 1:03 AM Note Text: DEPARTMENT OF HOSPITAL MEDICINE HISTORY AND PHYSICAL EXAM SERVICE DATE: 05/29/2021 SERVICE TIME: 11:18 PM Primary Care Physician: Mateus Burris MD NIGHT AND WEEKEND COVERAGE: Please page [phone] until 7:30am this morning. After 7:30am please check the treatment team banner and page the appropriate service. 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 Normal [facility] Magnesium SerPl-mCncon 05-30 Magnesium [Mass/Vol] 2.5 mg/dL High 1.7-2.3 [facility] Comment on above: Order Comment: Speci men Type: BLOOD SPECIMEN Performed By: #### 1 9123-9, 2777-1 ####[facility] LABORATORYCLIA [id number] [place] [id number] [place] NURSING PROGon 05-30-2021 NURSING PROG HNO ID: [id number] Author: Precious Cervantes RN Service: ? Author Type: Registered Nurse Type: Nursing Progress Note Filed: 05/30/2021 11:26 AM Note Text: Nursing Progress Note Patient Name: Andrew Sifuentes Patient Location: [id number] Daily Note: 0700- Report received from mini shifter RN, patient resting in bed at this time, call light within reach, bed low and locked. Asked the patient to state his name because mini shifter RN was unable to complete his admission [...] note was completed by: Precious Cervantes [facility] NURSING PROG HNO ID: [id number] Author: Lyubov Day RN Service: ? Author Type: Registered Nurse Type: Nursing Progress Note Filed: 05/30/2021 1:27 AM Note Text: Nursing Progress Note Patient Name: Andrew Sifuentes Patient Location: [id number]: Patient is unresponsive to questions. Patient [...] note was completed by: Lyubov Day Normal [facility] Phosphate SerPl-mCncon 05-30 Phosphate [Mass/Vol] 3.5 mg/dL Normal 2.7-4.8 [facility] Comment on above: Order Comment: Speci men Type: BLOOD SPECIMEN Performed By: #### 1 9123-9, 2777-1 ####[facility] LABORATORYCLIA [id number] [place] [address] [place] Sepsis Lactateon 05-30-2021 Sepsis Lactate 1.5 mmol/L Normal 0.5-2.0 [facility] Comment on above: Performed By: #### S LACT ####[facility] [address] [place] [phone] Syphilis Ttl w/Reflxon 05-30 Syphilis Interp Cannot exclude recen t Treponemal infection if specimen collected within 7 to 10 days after appearance of suspect lesions or 2 to 3 weeks after an exposure. Clinical correlation is required. Normal [facility] Comment on above: Performed By: #### S Jennifer RUCKERB ####[facility] [place], [place] [phone] Syphilis Screen Rslt Non-Reactive Normal Non Reactive [facility] Comment on above: Performed By: #### S ALKA B1WB ####[facility] [place], [place] [phone] THERAPY NTon 05-30-2021 THERAPY NT HNO ID: [id number] Author: Btete Jimenez OTR/L Service: Occupational Therapy Author Type: Occupational Therapist Type: Therapy (PT/OT/Speech/Resp) Filed: 05/30/2021 10:29 AM Note Text: OCCUPATIONAL THERAPY MISSED VISIT SERVICE DATE: 05/30/2021 SERVICE TIME: 1017 to 1019 ROOM: [place] [address] Attempted Evaluation. Patient not seen due to Not following commands. Per nursing patient was seen by neuro and they are talking about having him transferred to [facility] secondary to shunt concerns. Will re attempt in the event patient continues to be admitted at [place] and is able to participate. SIGNATURE: RADHA Andres/L PATIENT NAME: Andrew Sifuentes DATE: May 30, 2021 TIME: 10:21 AM [facility] THERAPY NT HNO ID: [id number] Author: Bette Velasquez PT Service: Physical Therapy Author Type: Physical Therapist Type: Therapy (PT/OT/Speech/Resp) Filed: 05/30/2021 8:42 AM Note Text: PHYSICAL THERAPY MISSED VISIT SERVICE DATE: 05/30/2021 SERVICE TIME: 0840 to 0840 ROOM: [place] [address] Attempted Evaluation. Patient not seen due to (pt difficult to awake per RN, very lethargic). Will re-attempt when schedule permits. SIGNATURE: Bette Velasquez PT PATIENT NAME: Andrew Sifuentes DATE: May 30, 2021 TIME: 8:41 AM Normal [facility] Toxicology Screen,Uron 05-30 Amphetamines, Urine Negative Normal Negative [facility] Comment on above: Result Comment: Cuto ff threshold at 1000 ng/mL. Performed By: #### C AD #### [facility] [address] [place] [address] [facility] [address] [place], [place] [address] Barbiturates, Urine Negative Normal Negative [facility] Comment on above: Result Comment: Cuto ff threshold at 200 ng/mL. Performed By: #### C AD #### [facility] [address] [place] [address] [facility] [address] [place] [address] Benzodiazepines, Ur Negative Normal Negative [facility] Comment on above: Result Comment: Cuto ff threshold at 200 ng/mL. Performed By: #### C AD #### [facility] [address] [place] [phone] [place] [address] Cannabinoids, Urine Negative Normal Negative [facility] Comment on above: Result Comment: Cuto ff threshold at 50 ng/mL. Performed By: #### C AD #### [facility] [address] [place], [place] [phone] [place] [address] Cocaine, Urine Negative Normal Negative [facility] Comment on above: Result Comment: Cuto ff threshold at 300 ng/mL. Performed By: #### C AD #### [facility] [place] [phone] [place] [address] Opiates, Urine Negative Normal Negative [facility] Comment on above: Result Comment: Cuto ff threshold at 300 ng/mL. Performed By: #### C AD #### [facility] [place] [phone] [place] [address] Oxycodone, Urine Negative Normal Negative [facility] Comment on above: Result Comment: [...] on the same specimen through Client Services ([phone]) if contacted within 48 hours of initial testing. [1]Substance Abuse and Mental Health Services Administration (2012). Clinical Drug Testing in Primary Care Technical Assistance Publication Series 32. Department of Health and Human Services, [place], p.10. Performed By: #### C AD #### [facility] [address] [place], [place] [phone] [place] [address] Phencyclidine, Urine Negative Normal Negative [facility] Comment on above: Result Comment: Cuto ff threshold at 25 ng/mL. Performed By: #### C AD #### [facility] [address] [place] [phone] Troponin Ton 05-30-2021 Troponin T <0.010 Normal 0.000-0.029 [facility] Comment on above: Performed By: #### T NT ####[facility] [address] [place], [place] [phone] Urinalysison 05-30-2021 Bilirubin, Urine Negative Normal Negative [facility] Comment on above: Performed By: #### C AD #### [facility] [address] [place], [place] [phone] [place] [address] Clarity (U) Slightly Cloudy Critically abnormal Clear [facility] Comment on above: Performed By: #### C AD #### [facility] [address] [place], [place] [phone] [place] [address] Color (U) Yellow Normal Yellow [facility] Comment on above: Performed By: #### C AD #### [facility] [address] [place], [place] [phone] [place] [address] Glucose Ql (U) Negative Normal Negative [facility] Comment on above: Performed By: #### C AD #### [facility] [address] [place] [address] [facility] [address] [place], [place] [address] Hemoglobin/Blood,Ur Negative Normal Negative [facility] Comment on above: Performed By: #### C AD #### [facility] [address] [place] [address] [facility] [address] [place], [place] [address] Ketones Ql (U) Negative Normal Negative [facility] Comment on above: Performed By: #### C AD #### [facility] [address] [place] [address] [facility] [address] [place] [address] Leukest Negative Normal Negative [facility] Comment on above: Performed By: #### C AD #### [facility] [address] [place] [address] [facility] [address] [place], [place] [address] Nitrite Ql (U) Negative Normal Negative [facility] Comment on above: Performed By: #### C AD #### [facility] [address] [place] [address] [facility] [address] [place], [place] [address] pH (U) 8.5 [pH] High 5.0-8.0 [facility] Comment on above: Performed By: #### C AD #### [facility] [address] [place] [address] [facility] [address] [place], [place] [address] Protein, Urine Negative Normal Negative [facility] Comment on above: Performed By: #### C AD #### [facility] [address] [place] [address] [facility] [address] [place], [place] [address] Specific [place], Ur 1.015 Normal 1.005-1.030 [facility] Comment on above: Performed By: #### C AD #### [facility] [address] [place] [address] [place] [address] [place], [place] [address] Urobilinogen Qn (U) 0.2 {Marianne'U}/dL Normal 0.2-1.0 [facility] Comment on above: Performed By: #### C AD #### [facility] [address] [place] [address] [place] [address] Vitamin B1, Whole Blon 05-30 Vitamin B1 (TDP), WB 207.1 nmol/L Normal 84.0-213.0 [facility] Comment on above: Result Comment: This assay measures the concentration of thiamine diphosphate (TDP), the primary active form of vitamin B1. Approximately 90 percent of vitamin B1 present in whole blood is TDP. Thiamine and thiamine monophosphate, which comprise the remaining 10 percent, are not measured. This test was developed and its performance characteristics determined by [facility]'s Isrrael Perez [facility] [place] ( [facility]). It has not been cleared or approved by the FDA. [facility] is regulated under CLIA as qualified to perform high complexity testing. This test is used for clinical purposes. It should not be regarded as investigational or for research. Performed By: #### S YPHTX, B1WB ####[place] [id number] [place], [place] [phone] Vitamin B12on 05-30-2021 Cobalamin (Vitamin B12) [Mass/Vol] 494 pg/mL Normal 232-1245 [facility] Comment on above: Performed By: #### C AD #### [facility] [place] [address] [phone] ALLIED HEALTHon 05-29-2021 ALLIED HEALTH HNO ID: [id number] Author: Danica Jose RT(R) Service: Radiology Author [...] RT Kitty(R) May 29, 2021 8:51 PM [facility] HNO ID: [id number] Author: Markie Fish Service: ? Author Type: Entry Analyst Type: Allied Health Filed: 05/29/2021 8:39 [...] May 29, 2021 8:38 PM Normal [facility] CBC and Differentialon 05-29 Abs Baso 0.05 k/uL Normal <0.11 [facility] Comment on above: Performed By: #### C MP, MG1, CBCDIF ####[facility] [address] [place], [place] [phone] Abs [place] 0.72 k/uL Normal <0.87 [facility] Comment on above: Performed By: #### C MP, MG1, CBCDIF ####[facility] [address] [place] [address] Abs Neut 7.86 k/uL High 1.45-7.50 [facility] Comment on above: Performed By: #### C MP, MG1, CBCDIF ####[place] [address] Absolute nRBC <0.01 Normal <0.01 [facility] Comment on above: Performed By: #### C MP, MG1, CBCDIF ####[facility] [address] [place] [address] Basophils/100 WBC (Bld) 0.5 % Normal [facility] Comment on above: Performed By: #### C MP, MG1, CBCDIF ####[place] [address] DTYPE Auto Diff Normal [facility] Comment on above: Performed By: #### C MP, MG1, CBCDIF ####[place] [address] Eosinophils (Bld) [#/Vol] 0.10 10*3/uL Normal <0.46 [facility] Comment on above: Performed By: #### C MP, MG1, CBCDIF ####[place] [address] Eosinophils/100 WBC (Bld) 0.9 % Normal [facility] Comment on above: Performed By: #### C MP, MG1, CBCDIF ####[place] [address] Erythrocyte distribution width (RBC) [Ratio] 15.5 % High 11.5-15.0 [facility] Comment on above: Performed By: #### C MP, MG1, CBCDIF ####[place] [address] Hematocrit (Bld) [Volume fraction] 41.6 % Normal 39.0-51.0 [facility] Comment on above: Performed By: #### C MP, MG1, CBCDIF ####[facility] [address] [place], [place] [phone] Hemoglobin (Bld) [Mass/Vol] 12.7 g/dL Low 13.0-17.0 [facility] Comment on above: Performed By: #### C MARÍA ELENA MG1, CBCDIF ####[facility] [address] [place] [address] Lymphocytes (Bld) [#/Vol] 2.04 10*3/uL Normal 1.00-4.00 [facility] Comment on above: Performed By: #### C MP MG1, CBCDIF ####[facility] [address] [place] [address] Lymphocytes/100 WBC (Bld) 18.9 % Normal [facility] Comment on above: Performed By: #### C MARÍA ELENA MG1, CBCDIF ####[place] [address] MCH 27.3 pG Normal 26.0-34.0 [facility] Comment on above: Performed By: #### C MARÍA ELENA MG1, CBCDIF ####[place] [address] MCHC (RBC) [Mass/Vol] 30.5 g/dL Normal 30.5-36.0 [facility] Comment on above: Performed By: #### C MP MG1, CBCDIF ####[place] [address] MCV (RBC) [Entitic vol] 89.5 fL Normal 80.0-100.0 [facility] Comment on above: Performed By: #### C MP MG1, CBCDIF ####[facility] [address] [place] [address] Monocytes/100 WBC (Bld) 6.7 % Normal [facility] Comment on above: Performed By: #### C MP, MG1, CBCDIF ####[place] [address] Neutrophils/100 WBC (Bld) 73.0 % Normal [facility] Comment on above: Performed By: #### C MP, MG1, CBCDIF ####[facility] [address] [place] [address] NRBCs 0.0 /100 WBC Normal 0 [facility] Comment on above: Performed By: #### C MP, MG1, CBCDIF ####[facility] [address] [place] [address] Platelet mean volume (Bld) [Entitic vol] 10.1 fL Normal 9.0-12.7 [facility] Comment on above: Performed By: #### C MP, MG1, CBCDIF ####[facility] [address] [place], [place] [phone] Platelets (Bld) [#/Vol] 291 10*3/uL Normal 150-400 [facility] Comment on above: Performed By: #### C MP, MG1, CBCDIF ####[facility] [address] [place], [place] [phone] RBC (Bld) [#/Vol] 4.65 10*6/uL Normal 4.20-6.00 [facility] Comment on above: Performed By: #### C MP, MG1, CBCDIF ####[facility] [address] [place], [place] [phone] WBC (Bld) [#/Vol] 10.77 10*3/uL Normal 3.70-11.00 [facility] Comment on above: Performed By: #### C MP, MG1, CBCDIF ####[facility] [address] [place], [place] [phone] CT BRAIN WO IVCONon 05-29-19 CT BRAIN WO IVCON * * *Final Report* * * DATE OF EXAM: May 29 2021 8:42PM [facility] 0504 - CT BRAIN WO IVCON / PROCEDURE REASON: Head trauma, headache * * * * Physician Interpretation * * * * EXAMINATION: CT CERVICAL SPINE WO IVCON, CT BRAIN WO IVCON CLINICAL HISTORY: C-spine trauma, NEXUS/CCR positive (accession [id number]), Head trauma, headache (accession [id number]) TECHNIQUE: Serial axial unenhanced images were obtained from the vertex to the foramen magnum. Spiral, high resolution axial unenhanced images were obtained from the skull base to the cervicothoracic junction with sagittal and coronal planar reconstructions. Dose-Length Product (DLP): 2132 mGy*cm. CT Dose Reduction Employed: Automated exposure control (AEC) COMPARISON: 08/13/[address] RESULT: BRAIN: Post-operative change: Right parietal approach TRIM SETTER HELPER shunt is intact. The intracranial fragments of [...] vertebrae with counting from the craniocervical junction. Early Learning Teacher: OG Transcribe Date/Time: May 29 2021 8:59P Dictated by : CARLOS YOUNGER MD This examination was interpreted and the report reviewed and electronically signed by: CARLOS YOUNGER MD on May 29 2021 9:14PM EST [id number] [facility] CT CERVICAL SPINE WO IVCONon 05-29-2021 CT CERVICAL SPINE WO IVCON * * *Final Report* * * DATE OF EXAM: May 29 2021 8:42PM [facility] 0505 - CT CERVICAL SPINE WO IVCON / PROCEDURE REASON: C-spine trauma, NEXUS/CCR positive * * * * Physician Interpretation * * * * EXAMINATION: CT CERVICAL SPINE WO IVCON, CT BRAIN WO IVCON CLINICAL HISTORY: C-spine trauma, NEXUS/CCR positive (accession [id number]), Head trauma, headache (accession [id number]) TECHNIQUE: Serial axial unenhanced images were obtained from the vertex to the foramen magnum. Spiral, high resolution axial unenhanced images were obtained from the skull base to the cervicothoracic junction with sagittal and coronal planar reconstructions. Dose-Length Product (DLP): 2132 mGy*cm. CT Dose Reduction Employed: Automated exposure control (AEC) COMPARISON: 08/13/[address] RESULT: BRAIN: Post-operative change: Right parietal approach TRIM SETTER HELPER shunt is intact. The intracranial fragments of [...] vertebrae with counting from the craniocervical junction. Early Learning Teacher: PSCB Transcribe Date/Time: May 29 2021 8:59P Dictated by : CARLOS YOUNGER MD This examination was interpreted and the report reviewed and electronically signed by: CARLOS YOUNGER MD on May 29 2021 9:14PM EST [id number] [facility] Cepheid Bill only (EXCFR)on 05-29-2021 Cepheid Bill only (EXCFR) Billed for services performed [facility] Comment on above: Performed By: #### C AD #### [facility] [address] [place] [address] [facility] [address] [place], [place] [address] Comp Metabolic Panelon 05-29 Albumin [Mass/Vol] 4.1 g/dL Normal 3.9-4.9 [facility] Comment on above: Performed By: #### C MP ####[facility] [address] [place] [address] ALP [Catalytic activity/Vol] 86 U/L Normal 38-113 [facility] Comment on above: Performed By: #### C MP ####[facility] [address] [place] [address] ALT [Catalytic activity/Vol] 15 U/L Normal 10-54 [facility] Comment on above: Performed By: #### C MP ####[facility] [address] [place] [address] Anion gap [Moles/Vol] 9 mmol/L Normal 9-18 [facility] Comment on above: Performed By: #### C MP ####[facility] [address] [place] [address] AST [Catalytic activity/Vol] 22 U/L Normal 14-40 [facility] Comment on above: Performed By: #### C MP ####[facility] [address] [place] [address] Bilirubin [Mass/Vol] 0.2 mg/dL Normal 0.2-1.3 [facility] Comment on above: Performed By: #### C MP ####[facility] [address] [place] [address] Calcium [Mass/Vol] 9.1 mg/dL Normal 8.5-10.2 [facility] Comment on above: Performed By: #### C MP ####[facility] [address] [place] [address] Chloride [Moles/Vol] 103 mmol/L Normal 97-105 [facility] Comment on above: Performed By: #### C MP ####[facility] [address] [place] [address] CO2 [Moles/Vol] 29 mmol/L Normal 22-30 [facility] Comment on above: Performed By: #### C MP ####[facility] [address]68 [address] Creatinine [Mass/Vol] 0.89 mg/dL Normal 0.73-1.22 [facility] Comment on above: Performed By: #### C MP ####[facility] [address] [place] [phone] eGFR- Amer. >60 Normal [facility] Comment on above: Performed By: #### C MP ####[facility] G[address]id[address]rixmu4559 [address] eGFR-All Other Races >60 Normal [facility] Comment on above: Result Comment: [...] [email or web address]. Performed By: #### C MP ####[facility] [address]5[address] Glucose [Mass/Vol] 120 mg/dL High 74-99 [facility] Comment on above: Result Comment: The [place] Diabetes Association (ADA) provides guidance for cutoff [...] Standards of Medical Care in Diabetes 2016, [place] [employer]. Diabetes Care. 2016.39(Suppl 1). Performed By: #### C MP ####[facility] [address] [place] [address] Potassium [Moles/Vol] 4.2 mmol/L Normal 3.7-5.1 [facility] Comment on above: Performed By: #### C MP ####[facility] [address] [place] [address] Protein [Mass/Vol] 7.1 g/dL Normal 6.3-8.0 [facility] Comment on above: Performed By: #### C MP ####[place] [address] Sodium [Moles/Vol] 141 mmol/L Normal 136-144 [facility] Comment on above: Performed By: #### C MP ####[facility] [address] [place] [address] Urea nitrogen [Mass/Vol] 11 mg/dL Normal 9-24 [facility] Comment on above: Performed By: #### C MP ####[place] [address] Albumin [Mass/Vol] 4.1 g/dL Normal 3.9-4.9 [facility] Comment on above: Performed By: #### C MP, MG1, CBCDIF ####[facility] [address] [place] [address] ALP [Catalytic activity/Vol] 86 U/L Normal 38-113 [facility] Comment on above: Performed By: #### C MP, MG1, CBCDIF ####[place] [address] ALT Unable to assay due to interference from hemolysis. Suggest reorder as clinically indicated. Normal 10-54 [facility] Comment on above: Result Comment: Call ed to LISA Rea at 2129 on 05.29.21 by Sabino Performed By: #### C MP, MG1, CBCDIF ####[facility] [address] [place] [address] Anion gap [Moles/Vol] 12 mmol/L Normal 9-18 [facility] Comment on above: Performed By: #### C MP, MG1, CBCDIF ####[facility] [address] [place] [address] AST Unable to assay due to interference from hemolysis. Suggest reorder as clinically indicated. Normal 14-40 [facility] Comment on above: Result Comment: Call ed to ED Álvaro at 2129 on 05.29.21 by Sabino Performed By: #### C MP, MG1, CBCDIF ####[facility] [address] [place] [address] Bilirubin [Mass/Vol] 0.2 mg/dL Normal 0.2-1.3 [facility] Comment on above: Performed By: #### C MP, MG1, CBCDIF ####[facility] [address] [place] [address] Calcium [Mass/Vol] 9.0 mg/dL Normal 8.5-10.2 [facility] Comment on above: Performed By: #### C MP, MG1, CBCDIF ####[facility] [address] [place] [address] Chloride [Moles/Vol] 102 mmol/L Normal 97-105 [facility] Comment on above: Performed By: #### C MP, MG1, CBCDIF ####[facility] [address] [place] [address] CO2 [Moles/Vol] 27 mmol/L Normal 22-30 [facility] Comment on above: Performed By: #### C MP, MG1, CBCDIF ####[facility] [address] [place] [address] Creatinine [Mass/Vol] 0.75 mg/dL Normal 0.73-1.22 [facility] Comment on above: Performed By: #### C MP, MG1, CBCDIF ####[facility] Klifnxnuty1222 [address] eGFR- Amer. >60 Normal [facility] Comment on above: Performed By: #### C MP, MG1, CBCDIF ####[facility] [address] [place] [phone] eGFR-All Other Races >60 Normal [facility] Comment on above: Result Comment: [...] By: #### C MP, MG1, CBCDIF ####[facility] [address] [place] [phone] Glucose [Mass/Vol] 112 mg/dL High 74-99 [facility] Comment on above: Result Comment: The [place] Diabetes Association (ADA) provides guidance for cutoff [...] Standards of Medical Care in Diabetes 2016, [place] Diabetes Association. Diabetes Care. 2016.39(Suppl 1). Performed By: #### C MP, MG1, CBCDIF ####[facility] [address] [place] [phone] Potassium Unable to assay due to interference from hemolysis. Suggest reorder as clinically indicated. Normal 3.7-5.1 [facility] Comment on above: Result Comment: Call ed to ED Álvaro at 2129 on 05.29.21 by Sabino Performed By: #### C MP, MG1, CBCDIF ####[facility] R[address]ka0594 [address]721-[address]160 Protein [Mass/Vol] 7.3 g/dL Normal 6.3-8.0 [facility] Comment on above: Performed By: #### C MP, MG1, CBCDIF ####[facility] Dawzlpxkwx0293 [address]721-5160 Sodium [Moles/Vol] 141 mmol/L Normal 136-144 [facility] Comment on above: Performed By: #### C MP, MG1, CBCDIF ####[facility] Qdnxxemsvo0889 [address]721-[address]160 Urea nitrogen [Mass/Vol] 11 mg/dL Normal 9-24 [facility] Comment on above: Performed By: #### C MP, MG1, CBCDIF ####[facility] W[address]sp[address]ot6099 [address]721-5160 ED PROV NOTEon 05-29-2021 ED PROV NOTE HNO ID: [id number] Author: Shanell Slaughter MD Service: ? Author [...] No radiographic evidence of acute cardiopulmonary disease. Early Learning Teacher: [facility] Transcribe Date/Time: May 29 2021 8:53P [...] vertebrae with counting from the craniocervical junction. Early Learning Teacher: [facility] Transcribe Date/Time: May 29 2021 8:59P [...] vertebrae with counting from the craniocervical junction. Early Learning Teacher: [facility] Transcribe Date/Time: May 29 (more content not included)... 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 Provider Location: [facility] Patient Location: Outpatient Hospital Physical [...] Pandya, DO Flavio Pandya, DO 05/29/211909 Normal [facility] EXCOVD, Flu A/B, RSV (On int erfaces 1102,1120)on 05-29-2021 Influenza A PCR Negative Normal [facility] Comment on above: Performed By: #### C AD #### [facility] [address], [place] [address] [place] [address] Laboratories [address] [place] [place] [address] Influenza B PCR Negative Normal [facility] Comment on above: Performed By: #### C AD #### [facility] [address] [place] [address] RSV PCR Negative Normal [facility] Comment on above: Result Comment: This test has been authorized by [facility] under an Emergency Use Authorization (EUA). Performed By: #### C AD #### [facility] [address] [place] [address] SARS-CoV-2 (COVID-19) RNA MEGAN+probe Ql (Unsp spec) UPPER RESPIRATORY TRACT SWAB Normal [facility] Comment on above: Performed By: #### C AD #### [facility] [address] [place] [address] SARS-CoV-2 (COVID-19) RNA MEGAN+probe Ql (Unsp spec) Negative for COVID19 (SARS CoV2) by RT-PCR or equivalent method. Normal Negative for COVID19 (SARS CoV2) by RT-PCR or equivalent method. [facility] Comment on above: Result Comment: This test has been authorized by [facility] under an Emergency Use Authorization (EUA). Performed By: #### C AD #### [facility] [address] [place] [address] Magnesiumon 05-29-2021 Magnesium [Mass/Vol] 2.2 mg/dL Normal 1.7-2.3 [facility] Comment on above: Performed By: #### C MP, MG1, CBCDIF ####[facility] [address] [place] [phone] NT Pro BNPon 05-29-2021 PRO B Natr Peptide 303 pg/mL High <125 [facility] Comment on above: Performed By: #### N TBNP ####[facility] [address] [place] [phone] Troponin Ton 05-29-2021 Troponin T <0.010 Normal 0.000-0.029 [facility] Comment on above: Performed By: #### T NT ####[facility] [address] [place] [phone] Troponin T Unable to assay due to interference from hemolysis. Suggest reorder as clinically indicated. Normal 0.000-0.029 [facility] Comment on above: Result Comment: Call ed to ED Álvaro at 2129 on 05.29.21 by Sabino Performed By: #### T NT ####[facility] [phone] XR CHEST 1V FRONTAL PORTon 0 [...] No radiographic evidence of acute cardiopulmonary disease. Early Learning Teacher: OG Transcribe Date/Time: May 29 2021 8:53P Dictated by : ROLY BANGURA MD This examination was interpreted and the report reviewed and electronically signed by: ROLY BANGURA MD on May 29 2021 8:54PM EST [id number] Normal [facility] COMPREHENSIVE PANELon 2020 Albumin [Mass/Vol] 3.9 g/dL Normal 3.4 - 5.0 [facility] Comment on above: Order Comment: PATIE NT FASTING Performed By: #### C MP #### [facility] [address] [place] [address] ALP [Catalytic activity/Vol] 71 U/L Normal 33 - 136 [facility] Comment on above: Order Comment: PATIE NT FASTING Performed By: #### C MP #### [facility] [address] [place] [address] ALT [Catalytic activity/Vol] 19 U/L Normal 10 - 52 [facility] Comment on above: Order Comment: PATIE NT FASTING Result Comment: Nasima ents treated with Sulfasalazine may generate falsely decreased results for ALT. Performed By: #### C MP #### [facility] [address] [place] [address] Anion gap [Moles/Vol] 13 mmol/L Normal 10 - 20 [facility] Comment on above: Order Comment: PATIE NT FASTING Performed By: #### C MP #### [facility] [address] [place] [address] AST [Catalytic activity/Vol] 20 U/L Normal 9 - 39 [facility] Comment on above: Order Comment: PATIE NT FASTING Performed By: #### C MP #### [facility] [address] [place] [address] Bilirubin [Mass/Vol] 0.6 mg/dL Normal 0.0 - 1.2 [facility] Comment on above: Order Comment: PATIE NT FASTING Performed By: #### C MP #### [facility] [address] [place] [address] Calcium [Mass/Vol] 9.0 mg/dL Normal 8.6 - 10.6 [facility] Comment on above: Order Comment: PATIE NT FASTING Performed By: #### C MP #### [facility] [address] [place] [address] Chloride [Moles/Vol] 103 mmol/L Normal 98 - 107 [facility] Comment on above: Order Comment: PATIE NT FASTING Performed By: #### C MP #### [facility] [address] [place] [address] Creatinine [Mass/Vol] 0.94 mg/dL Normal 0.50 - 1.30 [facility] Comment on above: Order Comment: PATIE NT FASTING Performed By: #### C MP #### [facility] [address] [place] [address] GFR- AM. >60 Normal >60 [facility] Comment on above: Order Comment: PATIE NT FASTING Result Comment: CALC ULATIONS OF ESTIMATED GFR ARE PERFORMED USING THE MDRD STUDY EQUATION FOR THE IDMS-TRACEABLE CREATININE METHODS. CLIN CHEM 2007;53:766-72 Performed By: #### C MP #### [facility] [address] [place] [address] GFR-NON AM. >60 Normal >60 [facility] Comment on above: Order Comment: PATIE NT FASTING Performed By: #### C MP #### [facility] [address] [place] [address] Glucose [Mass/Vol] 85 mg/dL Normal 74 - 99 [facility] Comment on above: Order Comment: PATIE NT FASTING Performed By: #### C MP #### [facility] [address] [place] [address] HCO3 (Bld) [Moles/Vol] 30 mmol/L Normal 21 - 32 [facility] Comment on above: Order Comment: PATIE NT FASTING Performed By: #### C MP #### [facility] [address] [place] [address] Potassium [Moles/Vol] 4.1 mmol/L Normal 3.5 - 5.3 [facility] Comment on above: Order Comment: PATIE NT FASTING Performed By: #### C MP #### [facility] [address] [place] [address] Protein [Mass/Vol] 6.6 g/dL Normal 6.4 - 8.2 [facility] Comment on above: Order Comment: PATIE NT FASTING Performed By: #### C MP #### [facility] [address] [place] [address] Sodium [Moles/Vol] 142 mmol/L Normal 136 - 145 [facility] Comment on above: Order Comment: PATIE NT FASTING Performed By: #### C MP #### [facility] [address] [place] [address] Urea nitrogen [Mass/Vol] 14 mg/dL Normal 6 - 23 [facility] Comment on above: Order Comment: PATIE NT FASTING Performed By: #### C MP #### [facility] [address] [place] [address] LIPID PANEL (CORONARY RISK 2 )on 09-03-2020 [...] Performed By: #### L IPID #### [facility] [address] [place] [address] Cholesterol in HDL [Mass/Vol] 50.1 mg/dL Normal [facility] Comment on above: Order Comment: PATIE NT FASTING Result Comment: . AGE VERY LOW LOW NORMAL HIGH 0-19 Y < 35 < 40 40-45 ---- 20-24 Y ---- < 40 >45 ---- >24 Y ---- < 40 40-60 >60 . Performed By: #### L IPID #### [facility] [address] [place] [address] Cholesterol in LDL [Mass/Vol] 130 mg/dL High [...] Performed By: #### L IPID #### [facility] [address] [place] [address] Cholesterol in VLDL [Mass/Vol] 30 mg/dL Normal 0 - 40 [facility] Comment on above: Order Comment: PATIE NT FASTING Performed By: #### L IPID #### [facility] [address] [place] [address] Cholesterol.total/Chol esterol in HDL [Mass ratio] 4.2 {ratio} Normal [facility] Comment on above: Order Comment: PATIE NT FASTING Result Comment: REF VALUES DESIRABLE < 3.4 HIGH RISK > 5.0 Performed By: #### L IPID #### [facility] [address] [place] [address] Triglyceride [Mass/Vol] 152 mg/dL High 0 - [...] Performed By: #### L IPID #### [facility] [address] [place] [address] PROSTATE SPEC.AG,SCREENon PROSTATE SPEC.AG,SCREEN 0.37 ng/mL Normal [...] [facility] using the [employer] PSA method, which is a sandwich immunoassay using chemiluminescence for quantitation. The assay is approved for measurement of prostate-specific antigen (PSA) in serum and may be used in conjunction with a digital rectal examination in men 50 years and older as an aid in detection of prostate cancer. 9-Gsyiz-xtpsibdzs inhibitors (e.g. Proscar, Finasteride, Avodart, Dutasteride and Elizabeth) for the treatment of BPH have been shown to lower PSA levels by an average of 50% after 6 months of treatment. Performed By: #### P [facility] #### [facility] [address] [place] [address] TSH WITH REFLEX TO FREE T4 I F ABNORMALon 09-03-2020 TSH Qn 0.97 m[IU]/L Normal 0.44 - 3.98 [facility] Comment on above: Order Comment: PATIE NT FASTING Result Comment: TSH testing is performed using different testing methodology at [facility] than [facility]. Direct result comparisons should only be made within the same method. Performed By: #### T HYDS #### [facility] [address] [place] [address] CBC AND DIFFERENTIALon 09-02 % AUTOMATED IMMATURE [...] (cells/L). Performed By: #### C BCDF #### [facility] [address] [place] [address] Basophils (Bld) [#/Vol] 0.07 10*3/uL Normal 0.00 - 0.10 [facility] Comment on above: Order Comment: PATIE NT FASTING Result Comment: Auto mated WBC differential has been confirmed by manual smear. Performed By: #### C BCDF #### [facility] [address] [place] [address] Basophils/100 WBC (Bld) 0.9 % Normal 0.0 - 2.0 [facility] Comment on above: Order Comment: PATIE NT FASTING Performed By: #### C BCDF #### [facility] [address] [place] [address] Eosinophils (Bld) [#/Vol] 0.21 10*3/uL Normal 0.00 - 0.70 [facility] Comment on above: Order Comment: PATIE NT FASTING Performed By: #### C BCDF #### [facility] [address] [place] [address] Eosinophils/100 WBC (Bld) 2.8 % Normal 0.0 - 6.0 [facility] Comment on above: Order Comment: PATIE NT FASTING Performed By: #### C BCDF #### [facility] [address] [place] [address] Lymphocytes (Bld) [#/Vol] 2.28 10*3/uL Normal 1.20 - 4.80 [facility] Comment on above: Order Comment: PATIE NT FASTING Performed By: #### C BCDF #### [facility] [address] [place] [address] Lymphocytes/100 WBC (Bld) 30.9 % Normal 13.0 - 44.0 [facility] Comment on above: Order Comment: PATIE NT FASTING Performed By: #### C BCDF #### [facility] [address] [place] [address] Monocytes (Bld) [#/Vol] 0.50 10*3/uL Normal 0.10 - 1.00 [facility] Comment on above: Order Comment: PATIE NT FASTING Performed By: #### C BCDF #### [facility] [address] [place] [address] Monocytes/100 WBC (Bld) 6.8 % Normal 2.0 - 10.0 [facility] Comment on above: Order Comment: PATIE NT FASTING Performed By: #### C BCDF #### [facility] [address] [place] [address] Neutrophils (Bld) [#/Vol] 4.29 10*3/uL Normal 1.20 - 7.70 [facility] Comment on above: Order Comment: PATIE NT FASTING Performed By: #### C BCDF #### [facility] [address] [place] [address] Neutrophils/100 WBC (Bld) 58.3 % Normal 40.0 - 80.0 [facility] Comment on above: Order Comment: PATIE NT FASTING Performed By: #### C BCDF #### [facility] [address] [place] [address] Erythrocyte distribution width (RBC) [Ratio] 14.6 % High 11.5 - 14.5 [facility] Comment on above: Order Comment: PATIE NT FASTING Performed By: #### C BCDF #### [facility] [address] [place] [address] Hematocrit (Bld) [Volume fraction] 43.1 % Normal 41.0 - 52.0 [facility] Comment on above: Order Comment: PATIE NT FASTING Performed By: #### C BCDF #### [facility] [address] [place] [address] Hemoglobin (Bld) [Mass/Vol] 13.3 g/dL Low 13.5 - 17.5 [facility] Comment on above: Order Comment: PATIE NT FASTING Performed By: #### C BCDF #### [facility] [address] [place] [address] MCHC (RBC) [Mass/Vol] 30.9 g/dL Low 32.0 - 36.0 [facility] Comment on above: Order Comment: PATIE NT FASTING Performed By: #### C BCDF #### [facility] [address] [place] [address] MCV (RBC) [Entitic vol] 92 fL Normal 80 - 100 [facility] Comment on above: Order Comment: PATIE NT FASTING Performed By: #### C BCDF #### [facility] [address] [place] [address] NUCLEATED RBC 0.0 /100 WBC Normal 0.0-0.0 [facility] Comment on above: Order Comment: PATIE NT FASTING Performed By: #### C BCDF #### [facility] [address] [place] [address] Platelets (Bld) [#/Vol] 267 10*3/uL Normal 150 - 450 [facility] Comment on above: Order Comment: PATIE NT FASTING Performed By: #### C BCDF #### [facility] [address] [place] [address] RBC 4.69 x10E12/L Normal 4.50 - 5.90 [facility] Comment on above: Order Comment: PATIE NT FASTING Performed By: #### C BCDF #### [facility] [address] [place] [address] WBC (Bld) [#/Vol] 7.4 10*3/uL Normal 4.4 - 11.3 [facility] Comment on above: Order Comment: PATIE NT FASTING Performed By: #### C BCDF #### [facility] [address] [place] [address] RED CELL MORPHOLOGYon 2020 CHANELL CELLS Few Normal [facility] Comment on above: Order Comment: PATIE NT FASTING Performed By: #### M ORP2 #### [facility] [address] [place] [address] OVALOCYTES Few Normal [facility] Comment on above: Order Comment: PATIE NT FASTING Performed By: #### M ORP2 #### [facility] [address] [place] [address] POLYCHROMASIA Mild Normal [facility] Comment on above: Order Comment: PATIE NT FASTING Performed By: #### M ORP2 #### [facility] [address] [place] [address] RBC FRAGMENTS Few Normal [facility] Comment on above: Order Comment: PATIE NT FASTING Performed By: #### M ORP2 #### [facility] [address] [place] [address] RBC morphology finding Nom (Bld) See Below Normal [facility] Comment on above: Order Comment: PATIE NT FASTING Performed By: #### M ORP2 #### [facility] [address] [place] [address] No Panel Informationon 01-19 76 1 MP-Cardiolo [...] [place] Work Phone: [email or web address] ?RetrieveTestByDateTime?P [email or web address]&Date=1 09-13-2019&Time=15%3a11%3a 03%3a00&TestType=ECG&Site =1&OutputType=PDF&Ext=PDF MP-Cardiolo gy-[place] [address] [place] Work Phone: Otheron 11-13-2019 [facility] Complete Blood Count + Diffe rentialon 11-06-2019 Basophils (Bld) [#/Vol] 0.06 {x10E9/L} See Below [facility] Work Phone: Comment on above: Reference Range: 0.0 0 - 0.10 Basophils/100 WBC (Bld) 0.8 % 0.0 - 2.0 [facility] Work Phone: Eosinophils (Bld) [#/Vol] 0.18 {x10E9/L} See Below [facility] Work Phone: Comment on above: Reference Range: 0.0 0 - 0.70 Eosinophils/100 WBC (Bld) 2.5 % 0.0 - 6.0 [facility] Work Phone: Erythrocyte distribution width (RBC) [Ratio] 13.7 % See Below [facility] Work Phone: Comment on above: Reference Range: 11. 5 - 14.5 Hematocrit (Bld) [Volume fraction] 45.5 % See Below [facility] Work Phone: Comment on above: Reference Range: 41. 0 - 52.0 Hemoglobin (Bld) [Mass/Vol] 14.0 g/dL See Below [facility] Work Phone: Comment on above: Reference Range: 13. 5 - 17.5 Lymphocytes (Bld) [#/Vol] 2.15 {x10E9/L} See Below [facility] Work Phone: Comment on above: Reference Range: 1.2 0 - 4.80 Lymphocytes/100 WBC (Bld) 29.9 % See Below [facility] Work Phone: Comment on above: Reference Range: 13. 0 - 44.0 MCHC (RBC) [Mass/Vol] 30.8 g/dL below low threshold See Below [facility] Work Phone: Comment on above: Reference Range: 32. 0 - 36.0 MCV (RBC) [Entitic vol] 94 fL 80 - 100 [facility] Work Phone: Monocytes (Bld) [#/Vol] 0.49 {x10E9/L} See Below [facility] Work Phone: Comment on above: Reference Range: 0.1 0 - 1.00 Monocytes/100 WBC (Bld) 6.8 % 2.0 - 10.0 [facility] Work Phone: Neutrophils (Bld) [#/Vol] 4.30 {x10E9/L} See Below [facility] Work Phone: Comment on above: Reference Range: 1.2 0 - 7.70 Neutrophils/100 WBC (Bld) 59.9 % See Below [facility] Work Phone: Comment on above: Reference Range: 40. 0 - 80.0 Platelets (Bld) [#/Vol] 270 {x10E9/L} 150 - 450 [facility] Work Phone: RBC (Bld) [#/Vol] 4.85 {x10E12/L} See Below [facility] Work Phone: Comment on above: Reference Range: 4.5 0 - 5.90 WBC (Bld) [#/Vol] 0.0 {/100_WBC} 0.0-0.0 [facility] Work Phone: WBC (Bld) [#/Vol] 7.2 {x10E9/L} 4.4 - 11.3 [facility] Work Phone: Complete Blood Count + Differential 0.1 % 0.0 - 0.9 [facility] Work Phone: Comment on above: Immature Granulocyte Count (IG) includes promyelocytes, myelocytes and metamyelocytes but does not include bands. Percent differential counts (%) should be interpreted in the context of the absolute cell counts (cells/L). Lipid Panelon 11-06-2019 Cholesterol [Mass/Vol] 181 mg/dL 0 - 199 [facility] Work Phone: Comment on above: . AGE DESIRABLE BORD APT HIGH HIGH 0-19 Y 0 - 169 [...] dosing. Cholesterol in HDL [Mass/Vol] 52.1 mg/dL [facility] Work Phone: Comment on above: . AGE VERY LOW LOW N ORMAL HIGH 0-19 Y < 35 < 40 40-45 ---- 20-24 Y ---- < 40 >45 ---- >24 Y ---- < 40 40-60 >60. Cholesterol in LDL [Mass/Vol] 97 mg/dL 0 - 99 [facility] Work Phone: Comment on above: . NEAR BORD AGE IZABELLA RABLE OPTIMAL HIGH HIGH VERY HIGH 0-19 Y 0 - 109 --- 110-129 >/= 130 ---- 20-24 Y 0 - 119 --- 120-159 >/= 160 ---- >24 Y 0 - 99 100-129 130-159 160-189 >/=190. Cholesterol.total/Chol esterol in HDL [Mass ratio] 3.5 {ratio} [facility] Work Phone: Comment on above: REF VALUESDESIRABLE < 3.4HIGH RISK > 5.0 Triglyceride [Mass/Vol] 158 mg/dL above high threshold 0 - 149 [facility] Work Phone: Comment on above: . [...] [Catalytic activity/Vol] 70 U/L 33 - 136 [facility] Work Phone: Anion gap [Moles/Vol] 13 mmol/L 10 - 20 [facility] Work Phone: Bilirubin [Mass/Vol] 0.6 mg/dL 0.0 - 1.2 [facility] Work Phone: Calcium [Mass/Vol] 9.4 mg/dL 8.6 - 10.6 [facility] Work Phone: Chloride [Moles/Vol] 99 mmol/L 98 - 107 [facility] Work Phone: CO2 [Moles/Vol] 30 mmol/L 21 - 32 [facility] Work Phone: Creatinine [Mass/Vol] 0.87 mg/dL See Below [facility]ician [facility] Work Phone: Comment on above: Reference Range: 0.5 0 - 1.30 Glucose [Mass/Vol] 89 mg/dL 74 - 99 [facility] Work Phone: Potassium [Moles/Vol] 4.3 mmol/L 3.5 - 5.3 [facility]ician [facility] Work Phone: Protein [Mass/Vol] 7.3 g/dL 6.4 - 8.2 [facility] Work Phone: Sodium [Moles/Vol] 138 mmol/L 136 - 145 [facility] Work Phone: Urea nitrogen [Mass/Vol] 14 mg/dL 6 - 23 [facility] Work Phone: Otheron 11-06-2019 Albumin BCP dye [Mass/Vol] 4.4 g/dL 3.4 - 5.0 [facility] Work Phone: ALT With P-5'-P [Catalytic activity/Vol] 11 U/L 10 - 52 [facility] Work Phone: Comment on above: Patients treated wit h Sulfasalazine may generate falsely decreased results for ALT. AST With P-5'-P [Catalytic activity/Vol] 17 U/L 9 - 39 [facility] Work Phone: >60 >60 [facility] Work Phone: Comment on above: CALCULATIONS OF LUZMARIA MATED GFR ARE PERFORMED USING THE MDRD STUDY EQUATION FOR THE IDMS-TRACEABLE CREATININE METHODS. CLIN CHEM 2007;53:766-72 Culture, urine Bacteria identified Cx Nom (U) Mixed Gram Pos & Gram Neg Org [facility] Work Phone: Bacteria identified Cx Nom (U) Klebsiella pneumoniae sp pneum [facility] Work Phone: Vital Signs Date Time Vital Sign Value Performing Clinician Facility 09-13-2023 11:48-0400 Body height 175.3 cm Rebecca Buck MD Work Phone: [facility] 09-13-2023 11:48-0400 Body mass index (BMI) [Ratio] 25.84 kg/m2 Rebecca Buck MD Work Phone: [facility] 09-13-2023 11:48-0400 Body weight 79.38 kg Rebecca Buck MD Work Phone: [facility] 08-13-2023 09:56-0400 Body height 175.3 cm Rebecca Buck MD Work Phone: [facility] 08-13-2023 09:56-0400 Body mass index (BMI) [Ratio] 25.84 kg/m2 Rebecca Buck MD Work Phone: [facility] 08-13-2023 09:56-0400 Body weight 79.38 kg Rebecca Buck MD Work Phone: [facility] 03-02-2022 18:49-0400 Body temperature 98.01 [degF] Lanette Munguia DO Work Phone: [facility] 03-02-2022 18:49-0400 Diastolic blood pressure 72 mm[Hg] Lanette Munguia DO Work Phone: [facility] 03-02-2022 18:49-0400 Heart rate 94 /min Lanette Munguia DO Work Phone: [facility] 03-02-2022 18:49-0400 Respiratory rate 18 /min Lanette Munguia DO Work Phone: [facility] 03-02-2022 18:49-0400 SaO2% (BldA) [Mass fraction] 98 % Lanette Munguia DO Work Phone: [facility] 03-02-2022 18:49-0400 Systolic blood pressure 104 mm[Hg] Lanette Munguia DO Work Phone: [facility] 03-02-2022 11:55-0400 Body height 175.3 cm Lanette Munguia DO Work Phone: [employer] 03-02-2022 11:55-0400 Body mass index (BMI) [Ratio] 25.84 kg/m2 Lanette Munguia DO Work Phone: [employer] 03-02-2022 11:55-0400 Body weight 79.38 kg Lanette Munguia DO Work Phone: [facility] 12-22-2021 02:08-0400 Diastolic blood pressure 67 mm[Hg] Sharon Olivia MD Work Phone: [employer] 12-22-2021 02:08-0400 Heart rate 77 /min Sharon Olivia MD Work Phone: [employer] 12-22-2021 02:08-0400 Respiratory rate 16 /min Sharon Olivia MD Work Phone: [facility] 12-22-2021 02:08-0400 SaO2% (BldA) [Mass fraction] 96 % Sharon Olivia MD Work Phone: [facility] 12-22-2021 02:08-0400 Systolic blood pressure 108 mm[Hg] Sharon Olivia MD Work Phone: [facility] 12-21-2021 23:52-0400 Body height 175.3 cm Sharon Olivia MD Work Phone: [facility] 12-21-2021 23:52-0400 Body mass index (BMI) [Ratio] 25.84 kg/m2 Sharon Olivia MD Work Phone: [facility] 12-21-2021 23:52-0400 Body temperature 97.9 [degF] Sharon Olivia MD Work Phone: [facility] 12-21-2021 23:52-0400 Body weight 79.38 kg Sharon Olivia MD Work Phone: [facility] 11-01-2021 08:41-0400 Diastolic blood pressure 77 mm[Hg] Dante Kim MD Work Phone: [facility] 11-01-2021 08:41-0400 Heart rate 75 /min Dante Kim MD Work Phone: [facility] 11-01-2021 08:41-0400 Respiratory rate 16 /min Dante Kim MD Work Phone: [facility] 11-01-2021 08:41-0400 SaO2% (BldA) [Mass fraction] 97 % Dante Kim MD Work Phone: [facility] 11-01-2021 08:41-0400 Systolic blood pressure 112 mm[Hg] Dante Kim MD Work Phone: [facility] 10-31-2021 19:13-0400 Body height 177.8 cm Dante Kim MD Work Phone: [facility] 10-31-2021 19:13-0400 Body mass index (BMI) [Ratio] 27.26 kg/m2 Dante Kim MD Work Phone: [facility] 10-31-2021 19:13-0400 Body temperature 98.49 [degF] Dante Kim MD Work Phone: [facility] 10-31-2021 19:13-0400 Body weight 86.18 kg Dante Kim MD Work Phone: [facility] 10-29-2021 07:38-0400 Body temperature 97.81 [degF] Lisa Miguel Angel DO Work Phone: [facility] 10-29-2021 07:38-0400 Diastolic blood pressure 79 mm[Hg] Lsia Miguel Angel DO Work Phone: [facility] 10-29-2021 07:38-0400 Heart rate 80 /min Lisa Miguel Angel DO Work Phone: [facility] 10-29-2021 07:38-0400 Respiratory rate 18 /min Lisa Miguel Angel DO Work Phone: [facility] 10-29-2021 07:38-0400 SaO2% (BldA) [Mass fraction] 96 % Lisa Miguel Angel DO Work Phone: [facility] 10-29-2021 07:38-0400 Systolic blood pressure 123 mm[Hg] Lisa Miguel Angel DO Work Phone: [facility] 10-25-2021 13:55-0400 Body height 170.2 cm Lisa Miguel Angel DO Work Phone: [facility] 10-21-2021 00:57-0400 Body mass index (BMI) [Ratio] 37.58 kg/m2 Lisa Miguel Angel DO Work Phone: [facility] 10-21-2021 00:57-0400 Body weight 108.86 kg Lisa Miguel Angel DO Work Phone: [facility] 07-13-2020 13:21-0500 BMI (Body Mass Index) 40.47 kg/m2 Monika Staley [facility] Work Phone: 07-13-2020 13:21-0500 Body Temperature 98 [degF] Monika Staley [facility] Work Phone: 07-13-2020 13:21-0500 Body weight 124.31 kg Monika Staley [facility] Work Phone: 07-13-2020 13:21-0500 BP Diastolic 78 [...] Source: 04-13-2020 15:33-0500 0 1 Wing Ritter [facility] Work Phone: Comment on above: Pain Scale 01-20-2020 16:39-0400 Body height 175.26 cm Monika Staley MD MP-Cardiolog y-Med [facility] [address] [place] Work Phone: 01-20-2020 16:39-0400 Body mass index (BMI) [Ratio] 39.28 kg/m2 Monika Staley MD XR-Glcalmqydp-Wtn [facility] [address] [place] Work Phone: 01-20-2020 16:39-0400 Body surface area Derived from formula 2.33 m2 Monika Staley MD TI-Hlthzmcbre-Mfr [facility] [address] [place] Work Phone: 01-20-2020 16:39-0400 Body weight 120.66 kg Monika Staley MD MP-Cardiolog y-Med [facility] [address] [place] Work Phone: 01-20-2020 16:39-0400 Diastolic blood pressure 84 mm[Hg] Monika Staley MD ZD-Asrempcljp-Jlj [facility] [address] [place] Work Phone: Comment on above: Location: [facility]; Position: Sitting 01-20-2020 16:39-0400 Heart rate 80 /min Monika Staley MD MP-Cardiolog y-Med [facility] [address] [place] Work Phone: 01-20-2020 16:39-0400 SaO2% (BldA) [Mass fraction] 100 % Monika Staley MD TE-Ydojjbeiuc-Ncx [address] [address] [place] Work Phone: Comment on above: Source: 01-20-2020 16:39-0400 Systolic blood pressure 144 mm[Hg] Monika Staley MD KN-Uovzezeucs-Lll [address] [address] [place] Work Phone: Comment on above: Location: [facility]; Position: Sitting 11-06-2019 15:29-0400 BMI (Body Mass Index) 38.31 kg/m2 [facility] Work Phone: 11-06-2019 15:29-0400 Body Temperature 97.6 [...] Start: 03-16-2025 ambulatory Carlos Lópezsaros OLS Faci lity:[facility] Start: 03-13-2025 ambulatory Carlos Katsaros OLS Faci lity:[facility] Start: 03-12-2025 ambulatory Mahaveer Mukka flash OLS Facility:[facility] Start: 03-11-2025 ambulatory Carlos Katsaros OLS Faci lity:[facility] Start: 03-09-2025 ambulatory Mahaveer Mukka flash OLS Facility:[facility] Start: 03-05-2025 ambulatory Mahaveer Mukka flash OLS Facility:[facility] Start: 03-02-2025 ambulatory Peter Katsaros OLS Faci lity:[facility] Start: 02-26-2025 ambulatory Mahaveer Mukka flash OLS Facility:[facility] Start: 02-23-2025 ambulatory Mahaveer Mukka flash OLS Facility:[facility] Start: 02-19-2025 ambulatory Mahaveer Mukka flash OLS Facility:[facility] Start: 02-16-2025 End: 02-16-2025 ambulatory Karon Delacruzlla OLS Facility:[facility] Start: 02-12-2025 [place] [place] [facility] Start: 02-12-2025 End: 02-12-2025 ambulatory Karon Delacruzlla OLS Facility:[facility] Start: 02-09-2025 Registered Referred Carlos Cavazos - [place] [place] [facility] Start: 02-09-2025 ambulatory Carlos Cavazos OLS Faci lity:[facility] Start: 02-05-2025 [place] [facility] [facility] [facility] Start: 02-05-2025 End: 02-05-2025 ambulatory Karon Delacruzlla OLS Facility:[facility] Start: 02-02-2025 [place] [place] [facility] Start: 02-02-2025 End: 02-02-2025 ambulatory Karon Delacruzlla OLS Facility:[facility] Start: 01-29-2025 [place] [facility] [place] [facility] Start: 01-29-2025 End: 01-29-2025 ambulatory Karon Delacruzlla OLS Facility:[facility] Start: 01-26-2025 [place] [place] [facility] Start: 01-26-2025 End: 01-26-2025 ambulatory Karon Delacruzlla OLS Facility:[facility] Start: 01-22-2025 [place] [place] [facility] Start: 01-22-2025 End: 01-22-2025 [facility] Start: 01-19-2025 Registered Referred Carlos Cavazos - [place] [place] [facility] Start: 01-19-2025 End: 01-19-2025 ambulatory Carlos Cavazos OLS Facility:[facility] Start: 01-15-2025 [place] [facility] [facility] Start: 01-15-2025 End: 01-15-2025 ambulatory Karon Farmera OLS Facility:[facility] Start: 01-12-2025 Registered Referred Karon casillas MD -[place] [facility] Start: 01-12-2025 End: 01-12-2025 ambulatory Karon Farmera OLS Facility:[facility] Start: 01-08-2025 Registered Referred Karon casillas MD -[place] [facility] Start: 01-08-2025 End: 01-08-2025 ambulatory Karon Farmera OLS Facility:[facility] Start: 01-06-2025 Registered Referred Karon casillas MD -[place] [facility] Start: 01-06-2025 End: 01-06-2025 ambulatory Karon Delacruzmarlenea OLS Facility:[facility] Start: 01-01-2025 End: 01-01-[address] Monika Staley MD Work Phone: -[place] [facility] [employer] Start: 01-01-2025 End: 01-01-2025 Departed Referred Karon Corrales MD -[place] [facility] [employer] Start: 01-01-2025 Registered Referred Karon casillas MD -[place] [facility] Start: 01-01-2025 End: 01-01-2025 ambulatory Carlavilmanoe Delacruzmarlenevanessa OLS Facility:[facility] Start: 12-29-2024 Registered Referred Carlos Cavazos - [place] [facility] Start: 12-29-2024 End: 12-29-2024 ambulatory Carlos Maribelkameron OLS Facility:[facility] Start: 12-26-2024 End: 12-26-[address] Monika Staley MD Work Phone: -[place] [facility] [employer] Start: 12-26-2024 End: 12-26-2024 Departed Referred Karon Corrales MD -[place] [facility] [employer] Start: 12-26-2024 Registered Referred Karon casillas MD -[place] [facility] Start: 12-26-2024 End: 12-26-2024 ambulatory Karon Delacruzlla OLS Facility:[facility] Start: 12-25-2024 [place] [facility] [place] [facility] Start: 12-24-2024 End: 12-25-2024 ambulatory Mahavenoe Hernandezkkminglla OLS Facility:[facility] Start: 12-24-2024 Registered Referred Carlos Cavazos - [place] [facility] Start: 12-22-2024 ambulatory Karon Hernandezkka flash OLS Facility:[facility] Start: 12-22-2024 Registered Referred Karon casillas MD -[place] [facility] Start: 12-18-2024 [facility]istered [facility] [place] [facility] Start: 12-18-2024 End: 12-18-2024 [facility] Start: 12-15-2024 [facility]ulatory [facility] Morrison[facility] flash [facility] Start: 12-15-2024 [place] [place] [facility] Start: 12-11-2024 Registered Referred Carlos Cavazos - [place] [facility] Start: 12-11-2024 End: 12-11-2024 ambulatory Carlos Maribelsaros OLS Facility:[facility] Start: 12-08-2024 [place] [facility] [place] [facility] Start: 12-08-2024 End: 12-08-2024 ambulatory Karon Delacruzlla OLS Facility:[facility] Start: 12-04-2024 [place] [facility] [place] [facility] Start: 12-04-2024 End: 12-04-2024 ambulatory Carlaaveer Mukkamalla OLS Facility:[facility] Start: 12-02-2024 ambulatory [facility] Start: 12-02-2024 [place] [place] [employer] Start: 12-01-2024 ambulatory Carlos NOVAK Faci lity:[facility] Start: 12-01-2024 Registered Referred Carlos Cavazos - [place] [facility] [employer] Start: 11-28-2024 Registered Referred Carlos Cavazos - [place] [facility] [employer] Start: 11-28-2024 End: 11-28-2024 ambulatory Carlos NOVAK Facility:[facility] Start: 11-27-2024 Registered Referred Karon casillas MD -[place] [employer] Start: 11-27-2024 End: 11-27-2024 ambulatory Karon NOVAK Facility:[facility] Start: 11-24-2024 ambulatory Karon NOVAK Facility:[facility] Start: 11-24-2024 [place]istered [place] [facility] Start: 11-20-2024 Registered Referred Karon casillas MD -[place] [employer] Start: 11-20-2024 End: 11-20-2024 ambulatory Karon NOVAK Facility:[facility] Start: 11-17-2024 ambulatory Monika Carlos ty:[facility] Start: 11-17-2024 Registered Referred Karon casillas MD -[place] [employer] Start: 11-13-2024 ambulatory Monika Carlos ty:[facility] Start: 11-13-2024 Registered Referred Karon casillas MD -[place] [employer] Start: 11-10-2024 ambulatory Karon NOVAK Facility:[facility] Start: 11-10-2024 Registered [facility] [facility] Start: 11-06-2024 Registered Referred Karon casillas MD -[place] [employer] Start: 11-06-2024 End: 11-06-2024 ambulatory Karon NOVAK Facility:[facility] Start: 11-03-2024 End: 11-03-[address] Monika Staley MD Work Phone: -[place] [employer] Start: 11-03-2024 End: 11-03-2024 Departed Referred Carlos Cavazos -[place] [facility] [employer] Start: 11-03-2024 Registered Referred Carlos Cavazos - [place] [facility] Start: 11-03-2024 End: 11-03-2024 ambulatory Carlos NOVAK Facility:[facility] Start: 10-30-2024 End: 10-30-[address] Monika Staley MD Work Phone: -[place] [employer] Start: 10-30-2024 End: 10-30-2024 Departed Referred Karon Corrales MD -[place] [facility] [employer] Start: 10-30-2024 Registered Referred Karon casillas MD -[place] [facility] [employer] Start: 10-30-2024 End: 10-30-2024 ambulatory Monika Staley Facility:[facility] Start: 10-27-2024 Registered Referred Karon casillas MD -[place] [employer] Start: 10-27-2024 End: 10-27-2024 ambulatory Karon NOVAK Facility:[facility] Start: 10-23-2024 Registered Referred Karon casillas MD -[place] [employer] Start: 10-23-2024 End: 10-23-2024 ambulatory Monika Staley Facility:[facility] Start: 10-20-2024 End: 10-20-[address] Monika Staley MD Work Phone: -[place] [employer] Start: 10-20-2024 End: 10-20-2024 Departed Referred Karon Corrales MD -[place] [employer] Start: 10-20-2024 Registered Referred Karon casillas MD -[place] [facility] [employer] Start: 10-20-2024 End: 10-20-2024 ambulatory Karon NOVAK Facility:[facility] Start: 10-16-2024 ambulatory Monika Horner Luís Facili ty:[facility] Start: 10-16-2024 [facility]istered [facility] [place] [facility] Start: 10-13-2024 ambulatory Carlos NOVAK Faci lity:[facility] Start: 10-13-2024 Registered Referred Carlos Cavazos - [place] [facility] Start: 10-09-2024 ambulatory Monika Horner Luís Facili ty:[facility] Start: 10-09-2024 Registered Referred Karon casillas MD -[place] [facility] Start: 10-06-2024 ambulatory Carlos NOVAK Faci lity:[facility] Start: 10-06-2024 Registered Referred Carlos Cavazos - [place] [facility] Start: 10-02-2024 ambulatory Monika Horner Luís Facili ty:[facility] Start: 10-02-2024 Registered Referred Karon casillas MD -[place] [facility] [employer] Start: 09-30-2024 End: 09-30-[address] Monika Staley MD Work Phone: [facility] Work Phone: Start: 09-30-2024 End: 09-30-2024 Departed Referred Karon Corrales MD -[place] [facility] [employer] Start: 09-30-2024 Registered [facility] [facility] [facility] Start: 09-30-2024 End: 09-30-2024 ambulatory Karon NOVAK Facility:[facility] Start: 09-25-2024 ambulatory Karon NOVAK Facility:[facility] Start: 09-25-2024 [place]istered [place] [facility] [employer] Start: 09-22-2024 End: 09-22-[address] Monika Staley MD Work Phone: -[place] [facility] [employer] Start: 09-22-2024 End: 09-22-2024 Departed Referred Karon Corrales MD -[place] [facility] [facility] Start: 09-22-2024 Registered Referred Karon casillas MD -[place] [facility] Start: 09-22-2024 End: 09-22-2024 ambulatory Karon NOVAK Facility:[facility] Start: 09-18-2024 End: 09-18-[address] Monika Staley MD Work Phone: -[place] [facility] Start: 09-18-2024 End: 09-18-2024 Departed Referred Karon Corrales MD -[place] [facility] Start: 09-18-2024 Registered Referred Karon casillas MD -[place] [facility] Start: 09-18-2024 End: 09-18-2024 ambulatory Karon NOVAK Facility:[facility] Start: 09-15-2024 End: 09-15-[address] Monika Staley MD Work Phone: [facility] Work Phone: Start: 09-15-2024 End: 09-15-2024 Departed Referred Carlos Cavazos -[place] [facility] Start: 09-15-2024 Registered Referred Carlos Cavazos - [place] [facility] Start: 09-15-2024 End: 09-15-2024 ambulatory Carlos NOVAK Facility:[facility] Start: 09-11-2024 ambulatory Karon NOVAK Facility:[facility] Start: 09-11-2024 Registered Referred Karon casillas MD -[place] [facility] Start: 09-08-2024 End: 09-08-[address] Monika Staley MD Work Phone: [facility] Work Phone: Start: 09-08-2024 End: 09-08-2024 Departed Referred Karon Corrales MD -[place] [facility] Start: 09-08-2024 Registered Referred Karon casillas MD -[place] [facility] [facility] Start: 09-08-2024 End: 09-08-2024 ambulatory Karon NOVAK Facility:[facility] Start: 09-04-2024 End: 09-04-2024 Departed Referred Carlos Cavazos -[place] [facility] Start: 09-04-2024 Registered Referred Carlos Cavazos - [place] [facility] Start: 09-04-2024 End: 09-04-2024 ambulatory Carlos Cavazos OLS Facility:[facility] Start: 09-01-2024 End: 09-01-[address] Monika Staley MD Work Phone: [facility] Work Phone: Start: 09-01-2024 End: 09-01-2024 Departed Referred Carlos Cavazos -[place] [facility] Start: 09-01-2024 Registered Referred Carlos Maribelkameron - [place] [facility] Start: 09-01-2024 End: 09-01-2024 ambulatory Carlos NOVAK Facility:[facility] Start: 08-28-2024 End: 08-28-[address] Monika Staley MD Work Phone: [facility] Work Phone: Start: 08-28-2024 End: 08-28-2024 Departed Referred Carlos Cavazos -[place] [facility] Start: 08-28-2024 Registered Referred Carlos Abdelrahmanros - [place] [facility] Start: 08-28-2024 End: 08-28-2024 ambulatory Carlos NOVAK Facility:[facility] Start: 08-25-2024 End: 08-25-[address] Monika Staley MD Work Phone: [facility] Work Phone: Start: 08-25-2024 End: 08-25-2024 Departed Referred Karon Corrales MD -[place] [employer] Start: 08-25-2024 Registered Referred Karon casillas MD -[place] [facility] [employer] Start: 08-25-2024 End: 08-25-2024 ambulatory Carlaamber Morrisonmingshellie OLS Facility:[facility] Start: 08-21-2024 End: 08-21-[address] Monika Staley MD Work Phone: [facility] Work Phone: Start: 08-21-2024 End: 08-21-2024 Departed Referred Karon Corrales MD -[place] [facility] [employer] Start: 08-21-2024 Registered Referred Karon casillas MD -[place] [facility] Start: 08-21-2024 End: 08-21-2024 ambulatory Carlaamber Davidinga OLS Facility:[facility] Start: 08-18-2024 End: 08-18-[address] Monika Staley MD Work Phone: [facility] Work Phone: Start: 08-18-2024 End: 08-18-2024 Departed Referred Karon Corrales MD -[place] [facility] [employer] Start: 08-18-2024 Registered Referred Karon casillas MD -[place] [facility] [employer] Start: 08-18-2024 End: 08-18-2024 ambulatory Carlavilmanoe Hernandezelismingshellie OLS Facility:[facility] Start: 08-14-2024 End: 08-14-[address] Monika Staley MD Work Phone: [facility] Work Phone: Start: 08-14-2024 End: 08-14-2024 Departed Referred Karon Corrales MD -[place] [facility] [employer] Start: 08-14-2024 Registered Referred Karon casillas MD -[place] [facility] [employer] Start: 08-14-2024 End: 08-14-2024 ambulatory Carlaamber Corrales OLS Facility:[facility] Start: 08-11-2024 End: 08-11-2024 Departed Referred Karon Corrales MD -[place] [facility] Start: 08-11-2024 Registered Referred Karon casillas MD -[place] [facility] Start: 08-11-2024 End: 08-11-2024 ambulatory Karon NOVAK Facility:[facility] Start: 08-07-2024 End: 08-07-2024 Departed Referred Carlos Maribelsaros -[place] [facility] Start: 08-07-2024 Registered Referred Carlos Maribelsaros - [place] [facility] Start: 08-07-2024 End: 08-07-2024 ambulatory Carlos NOVAK Facility:[facility] Start: 08-04-2024 End: 08-04-[address] Monika Staley MD Work Phone: [facility] Work Phone: Start: 08-04-2024 End: 08-04-2024 Departed Referred Carlos Maribelsaros -[place] [facility] Start: 08-04-2024 Registered Referred Carlos Maribelsaros - [place] [facility] Start: 08-04-2024 End: 08-04-2024 ambulatory Carlos NOVAK Facility:[facility] Start: 07-31-2024 End: 07-31-[address] Monika Staley MD Work Phone: [facility] Work Phone: Start: 07-31-2024 End: 07-31-2024 Departed Referred Karon Corrales MD -[place] [facility] Start: 07-31-2024 Registered Referred Karon casillas MD -[place] [facility] Start: 07-31-2024 End: 07-31-2024 ambulatory Karon NOVAK Facility:[facility] Start: 07-28-2024 End: 07-28-[address] Monika Staley MD Work Phone: [facility] Work Phone: Start: 07-28-2024 End: 07-28-2024 Departed Referred Karon Corrales MD -[place] [facility] [employer] Start: 07-28-2024 Registered Referred Karon casillas MD -[place] [facility] Start: 07-28-2024 End: 07-28-2024 ambulatory Karon NOVAK Facility:[facility] Start: 07-25-2024 End: 07-25-[address] Monika Staley MD Work Phone: [facility] Work Phone: Start: 07-25-2024 End: 07-25-2024 Departed Referred Carlos Cavazos -[place] [facility] Start: 07-25-2024 Registered Referred Carlos Reeder [place] [facility] Start: 07-24-2024 End: 07-25-[address] Monika Staley MD Work Phone: [facility] Work Phone: Start: 07-24-2024 End: 07-24-2024 Departed Referred Karon Corrales MD -[place] [facility] [employer] Start: 07-24-2024 Registered Referred Karon casillas MD -[place] [facility] [employer] Start: 07-24-2024 End: 07-24-2024 ambulatory Karon NOVAK Facility:[facility] Start: 07-21-2024 End: 07-21-[address] Monika Staley MD Work Phone: [facility] Work Phone: Start: 07-21-2024 End: 07-21-2024 Departed Referred Karon Corrales MD -[place] [facility] [employer] Start: 07-21-2024 Registered [place] [facility] [facility] Start: 07-21-2024 End: 07-21-2024 ambulatory Karon NOVAK Facility:[facility] Start: 07-17-2024 End: 07-17-[address] Monika Staley MD Work Phone: [facility] Work Phone: Start: 07-17-2024 End: 07-17-2024 Departed Referred Karon Corrales MD -[place] [facility] [employer] Start: 07-17-2024 Registered Referred Karon casillas MD -[place] [facility] Start: 07-17-2024 End: 07-17-2024 ambulatory Karon NOVAK Facility:[facility] Start: 07-14-2024 End: 07-14-[address] Monika Staley MD Work Phone: [facility] Work Phone: Start: 07-14-2024 End: 07-14-2024 Departed Referred Carlos Cavazos -[place] [facility] Start: 07-14-2024 Registered Referred Carlos Lópezsaviri - [place] [facility] Start: 07-14-2024 End: 07-14-2024 ambulatory Carlos NOVAK Facility:[facility] Start: 07-11-2024 End: 07-11-[address] Monika Staley MD Work Phone: [facility] Work Phone: Start: 07-11-2024 End: 07-11-2024 Departed Referred Carlos Cavazos -[place] [facility] Start: 07-11-2024 Registered Referred Carlos Lópezsaviri - [place] [facility] Start: 07-11-2024 End: 07-11-2024 ambulatory Carlos NOVAK Facility:[facility] Start: 07-07-2024 End: 07-07-[address] Monika Staley MD Work Phone: [facility] Work Phone: Start: 07-07-2024 End: 07-07-2024 Departed Referred Karon Corrales MD -[place] [facility] Start: 07-07-2024 Registered Referred [facility] -[place] [facility] Start: 07-07-2024 End: 07-07-2024 ambulatory Karon NOVAK Facility:[facility] Start: 07-03-2024 End: 07-03-[address] Monika Staley MD Work Phone: [facility] Work Phone: Start: 07-03-2024 End: 07-03-2024 Departed Referred Kvng Crisostomo MD -[place] [facility] Start: 07-03-2024 Registered Referred Kvng Crisostomo MD -[place] [facility] Start: 07-03-2024 End: 07-03-2024 ambulatory Kvng NOVAK Facility:[facility] Start: 06-30-2024 End: 06-30-[address] Monika Staley MD Work Phone: [facility] Work Phone: Start: 06-30-2024 End: 06-30-2024 Departed Referred Kvng Crisostomo MD -[place] [facility] Start: 06-30-2024 Registered Referred Kvng Crisostomo MD -[place] [facility] Start: 06-30-2024 End: 06-30-2024 ambulatory Kvng NOVAK Facility:[facility] Start: 06-26-2024 ambulatory Kvng NOVAK Fac ility:[facility] Start: 06-26-2024 Registered Referred Kvng Crisostomo MD -[place] [employer] Start: 06-23-2024 End: 06-23-[address] Monika Staley MD Work Phone: [facility] Work Phone: Start: 06-23-2024 End: 06-23-2024 Departed Referred Carlos Pradoctuary [place] [employer] Start: 06-23-2024 Registered Referred Carlos Reeder [place] [employer] Start: 06-23-2024 End: 06-23-2024 ambulatory Carlos NOVAK Facility:[facility] Start: 06-19-2024 End: 06-19-[address] Monika Staley MD Work Phone: [facility] Work Phone: Start: 06-19-2024 End: 06-19-2024 Departed Referred Kvng Crisostomo MD -[place] [employer] Start: 06-19-2024 Registered Referred Kvng Crisostomo MD -[place] [facility] [employer] Start: 06-19-2024 End: 06-19-2024 ambulatory Monika Staley Facility:[facility] Start: 06-16-2024 End: 06-16-[address] Monika Staley MD Work Phone: [facility] Work Phone: Start: 06-16-2024 End: 06-16-2024 Departed Referred Kvng Crisostomo MD -[place] [employer] Start: 06-16-2024 Registered Referred Kvng Crisostomo MD -[place] [employer] Start: 06-16-2024 End: 06-16-2024 ambulatory Monika Staley Facility:[facility] Start: 06-12-2024 End: 06-12-[address] Monika Staley MD Work Phone: [facility] Work Phone: Start: 06-12-2024 End: 06-12-2024 Departed Referred Kvng Crisostomo MD -[place] [employer] Start: 06-12-2024 Registered Referred Kvng Crisostomo MD -[place] [employer] Start: 06-12-2024 End: 06-12-2024 ambulatory Kvng NOVAK Facility:[facility] Start: 06-09-2024 End: 06-09-[address] Monika Staley MD Work Phone: [facility] Work Phone: Start: 06-09-2024 End: 06-09-2024 Departed Referred Carlos Chavez [employer] Start: 06-09-2024 Registered Referred Carlos Chavez [employer] Start: 06-09-2024 End: 06-09-2024 ambulatory Monika Staley Facility:[facility] Start: 06-05-2024 End: 06-05-[address] Monika Staley MD Work Phone: [facility] Work Phone: Start: 06-05-2024 End: 06-05-2024 Departed Referred Kvng Mcclain [facility] [employer] Start: 06-05-2024 End: 06-05-2024 ambulatory Kvng NOVAK Facility:[facility] Start: 06-02-2024 End: 06-02-[address] Monika Staley MD Work Phone: [facility] Work Phone: Start: 06-02-2024 End: 06-02-2024 Departed Referred Kvng [place]cl[place] [employer] Start: 06-02-2024 Registered Referred Kvng Crisostomo MD -[facility] [employer] Start: 06-02-2024 End: 06-02-2024 ambulatory Kvng NOVAK Facility:[facility] Start: 05-29-2024 End: 05-29-[address] Monika tSaley MD Work Phone: [facility] Work Phone: Start: 05-29-2024 End: 05-29-2024 Departed Referred Kvng Mcclain [facility] [employer] Start: 05-29-2024 Registered Referred Kvng Mcclain [employer] Start: 05-29-2024 End: 05-29-2024 ambulatory Kvng NOVAK Facility:[facility] Start: 05-26-2024 End: 05-26-[address] Monika Staley MD Work Phone: [facility] Work Phone: Start: 05-26-2024 End: 05-26-2024 [place] [facility] Start: 05-26-2024 Registered Referred Carlos Reeder [place] [employer] Start: 05-26-2024 End: 05-26-2024 ambulatory Carlos NOVAK Facility:[facility] Start: 05-22-2024 ambulatory Kvng NOVAK Fac ility:[facility] Start: 05-22-2024 Registered [facility] [facility] Start: 05-20-2024 End: 05-20-2024 Departed Ref[place] [employer] Start: 05-19-2024 End: 05-20-2024 ambulatory Kvng NOVAK Facility:[facility] Start: 05-19-2024 Registered Ref[place] [employer] Start: 05-15-2024 End: 05-15-2024 Departed Referred [place] [employer] Start: 05-15-2024 End: 05-15-2024 ambulatory Kvng NOVAK Facility:[facility] Start: 05-12-2024 End: 05-12-2024 Departed Referred Carlos Morenouary [employer] Start: 05-12-2024 End: 05-12-2024 ambulatory Carlos NOVAK Facility:[facility] Start: 05-09-2024 End: 05-09-2024 [place]ed [place] [facility] Start: 05-09-2024 End: 05-09-2024 ambulatory Kvng NOVAK Facility:[facility] Start: 05-08-2024 End: 05-08-2024 Departed Referred [place] [employer] Start: 05-08-2024 End: 05-08-2024 ambulatory Kvng Crisostomoluis enrique NOVAK Facility:[facility] Start: 05-05-2024 End: 05-05-2024 Departed Referred Kvng Crisostomo MD -[place] [employer] Start: 05-05-2024 End: 05-05-2024 ambulatory Vicenterocio Jonesluis enrique NOVAK Facility:[facility] Start: 05-01-2024 End: 05-01-2024 Departed Referred Kvng Crisostomo MD -[place] [employer] Start: 05-01-2024 End: 05-01-2024 ambulatory Vicenterocio Andressa NOVAK Facility:[facility] Start: 04-28-2024 End: 04-28-2024 Departed Referred Carlos Cavazos -[place] [employer] Start: 04-28-2024 End: 04-28-2024 ambulatory Carlos NOVAK Facility:[facility] Start: 04-24-2024 End: 04-24-2024 Departed Referred Kvng Crisostomo MD -[place] [employer] Start: 04-24-2024 End: 04-24-2024 ambulatory Vicenterocio Andressa NOVAK Facility:[facility] Start: 04-21-2024 End: 04-21-2024 Departed Referred Carlos Cavazos -[place] [employer] Start: 04-21-2024 End: 04-21-2024 ambulatory Carlos NOVAK Facility:[facility] Start: 04-17-2024 ambulatory Vicenterocio Jonesur [facility] Fac ility:[facility] Start: 04-17-2024 Registered Ref[place] [employer] Start: 04-14-2024 ambulatory Vicenterocio Jonesluis enrique NOVAK Fac ility:[facility] Start: 04-14-2024 Registered Referred Kvng Crisostomo MD -[place] [employer] Start: 04-10-2024 End: 04-10-2024 Departed Ref[place] [employer] Start: 04-10-2024 End: 04-10-2024 ambulatory Vicentesigifredokarolmilton Andressa NOVAK Facility:[facility] Start: 04-07-2024 End: 04-07-2024 Departed Referred Carlos Cavazos -[place] [employer] Start: 04-07-2024 End: 04-07-2024 ambulatory Carlos NOVAK Facility:[facility] Start: 04-04-2024 ambulatory Kvng NOVAK Fac ility:[facility] Start: 04-04-2024 Registered Referred Kvng Crisostomo MD -[place] [employer] Start: 03-31-2024 End: 03-31-2024 Departed Referred Carlos Cavazos -[place] [employer] Start: 03-31-2024 End: 03-31-2024 ambulatory Carlos NOVAK Facility:[facility] Start: 03-27-2024 End: 03-27-2024 Departed Referred [place] [facility] [facility] Start: 03-27-2024 End: 03-27-2024 ambulatory [facility] Facility:[facility] Start: 03-24-2024 End: 03-24-2024 Departed Referred Kvng Crisostomo MD -[place] [employer] Start: 03-24-2024 End: 03-24-2024 ambulatory Kvng NOVAK Facility:[facility] Start: 03-20-2024 End: 03-20-2024 Departed Referred [place] [facility] [facility] Start: 03-20-2024 End: 03-20-2024 ambulatory [facility] Facility:[facility] Start: 03-19-2024 End: 03-19-2024 Departed Referred Kvng Crisostomo MD -[place] [employer] Start: 03-19-2024 End: 03-19-2024 ambulatory Kvng NOVAK Facility:[facility] Start: 03-18-2024 End: 03-18-2024 Departed Referred [facility] [place] [facility] [employer] Start: 03-17-2024 End: 03-17-2024 Departed Referred [place] [facility] [employer] Start: 03-14-2024 End: 03-14-2024 Departed Referred Carlos Cavazos -[place] [employer] Start: 03-13-2024 End: 03-13-2024 Departed Referred [facility] Start: 09-13-2023 End: 09-13-[address] [facility] Start: 09-13-2023 End: 09-13-2023 Office outpatient visit 25 minutes Rebecca Buck MD Work Phone: [facility] Urology Comment on above: Left flank pain (Christina magui Dx); BPH with urinary obstruction; History of kidney stones Start: 09-06-2023 End: 09-07-[address] [facility] Start: 09-06-2023 End: 09-06-2023 Subsequent hospital visit by physician Rebecca Buck MD Work Phone: [facility] CT Imaging Comment on above: Left flank pain; Calculus of ureter Start: 08-31-2023 [facility] Start: 08-31-2023 Patient encounter procedure [facility] Start: 08-21-2023 Telephone encounter Rebecca Buck MD Work Phone: [facility] Clinical Communication Comment on above: CT appt Boaz advice Start: 08-21-2023 [facility] Start: 08-13-2023 End: 08-13-[address] [facility] Start: 08-13-2023 End: 08-13-2023 Office outpatient new 45 minutes Rebecca Buck MD Work Phone: [facility] U[facility] Comment on above: Left flank pain (Christina magui Dx); Calculus of ureter; Disease of prostate; BPH with urinary obstruction Start: 08-03-2023 End: 08-03-2023 ambulatory [facility] Work Phone: Start: 08-03-2023 End: 08-03-2023 Departed Referred [facility] [employer] Start: 07-20-2023 End: 07-20-2023 ambulatory [facility] Work Phone: Start: 07-20-2023 End: 07-20-2023 Departed Referred [facility] [employer] Start: 07-20-2023 Registered Referred [facility] [employer] Start: 07-18-2023 End: 07-18-2023 ambulatory [facility] Work Phone: Start: 07-18-2023 End: 07-18-2023 [facility] Start: 07-18-2023 [facility] [employer] Start: 07-16-2023 End: 07-16-2023 ambulatory [facility] Work Phone: Start: 07-16-2023 End: 07-16-2023 [facility] [employer] Start: 07-16-2023 [facility] [employer] [facility] Start: 07-13-2023 End: 07-13-2023 ambulatory [facility] Work Phone: Start: 07-13-2023 End: 07-13-2023 [facility] Start: 07-13-2023 [facility] [employer] Start: 07-12-2023 End: 07-12-2023 ambulatory [facility] Work Phone: Start: 07-12-2023 End: 07-12-2023 [facility] Start: 07-12-2023 Registered Referred [facility] [employer] Start: 07-05-2023 End: 07-05-2023 ambulatory [facility] Work Phone: Start: 07-05-2023 End: 07-05-2023 [facility] Start: 07-05-2023 Registered [facility] [employer] Start: 07-02-2023 Registered [facility] Start: 06-28-2023 End: 06-28-2023 ambulatory [facility] Work Phone: Start: 06-28-2023 End: 06-28-2023 [facility] Start: 06-28-2023 [facility] [employer] Start: 06-25-2023 Telephone encounter Rebecca Buck MD Work Phone: [facility] Start: 06-25-2023 End: 06-25-2023 ambulatory [facility] Work Phone: Start: 06-25-2023 End: 06-25-2023 [facility] Start: 06-25-2023 [facility] [employer] Start: 06-21-2023 End: 06-21-2023 ambulatory [facility] Work Phone: Start: 06-21-2023 End: 06-21-2023 [facility] [employer] Start: 06-21-2023 [facility] Start: 06-13-2023 End: 06-13-2023 ambulatory [facility] Work Phone: Start: 06-13-2023 End: 06-13-2023 [facility] Start: 06-06-2023 End: 06-06-2023 ambulatory [facility] Work Phone: Start: 06-06-2023 End: 06-06-2023 [facility] [employer] Start: 06-06-2023 [facility]istered [facility] [employer] Start: 05-23-2023 End: 05-23-2023 ambulatory [facility] Work Phone: Start: 05-23-2023 End: 05-23-2023 [facility] [employer] Start: 05-09-2023 End: 05-09-2023 [facility] [employer] Start: 05-09-2023 [facility] Start: 04-23-2023 End: 04-23-2023 [facility] Start: 04-09-2023 End: 04-09-2023 ambulatory [facility] Work Phone: Start: 04-09-2023 End: 04-09-2023 [facility] Start: 04-09-2023 [facility] Start: 04-02-2023 End: 04-02-2023 ambulatory [facility] Work Phone: Start: 04-02-2023 End: 04-02-2023 [facility] [employer] Start: 04-02-2023 Registered [facility] [employer] Start: 03-26-2023 End: 03-26-2023 ambulatory [facility] Work Phone: Start: 03-26-2023 End: 03-26-2023 [facility] [employer] Start: 03-26-2023 Registered [facility] [employer] Start: 03-22-2023 End: 03-22-2023 ambulatory [facility] Work Phone: Start: 03-22-2023 End: 03-22-2023 [facility] Start: 03-22-2023 Registered [facility] [employer] Start: 03-08-2023 End: 03-08-2023 ambulatory [facility] Work Phone: Start: 03-08-2023 End: 03-08-2023 [facility] [employer] Start: 02-22-2023 End: 02-22-2023 ambulatory [facility] Work Phone: Start: 02-22-2023 End: 02-22-2023 Departed Referred [facility] [employer] Start: 02-22-2023 Registered Referred [facility] [facility] Start: 02-15-2023 End: 02-15-2023 ambulatory [facility] Work Phone: Start: 02-15-2023 End: 02-15-2023 Departed Referred [facility] [employer] Start: 02-15-2023 Registered Referred [facility] [employer] Start: 02-08-2023 End: 02-08-2023 ambulatory [facility] Work Phone: Start: 02-08-2023 End: 02-08-2023 Departed Referred [facility] [employer] Start: 01-31-2023 End: 01-31-2023 ambulatory [facility] Work Phone: Start: 01-31-2023 End: 01-31-2023 Departed Referred [facility] [employer] Start: 01-31-2023 Registered Referred [facility] [facility] Start: 01-29-2023 End: 01-29-2023 Departed Referred [facility] [facility] Start: 01-29-2023 Registered Referred [facility] [facility] Start: 01-26-2023 End: 01-26-2023 Departed Referred [facility] [employer] Start: 01-26-2023 Registered Referred [facility] [employer] Start: 01-24-2023 End: 01-24-2023 Departed Referred [facility] [employer] Start: 01-24-2023 Registered Referred [facility] [employer] Start: 01-22-2023 End: 01-22-2023 ambulatory [facility] Work Phone: Start: 01-22-2023 End: 01-22-2023 [facility] Start: 01-22-2023 [facility] Start: 01-10-2023 End: 01-10-2023 ambulatory [facility] Work Phone: Start: 01-10-2023 End: 01-10-2023 [facility] [employer] Start: 01-10-2023 Registered [facility] [employer] Start: 12-27-2022 End: 12-27-2022 ambulatory [facility] Work Phone: Start: 12-27-2022 End: 12-27-2022 [facility] Start: 12-27-2022 Registered [facility] [employer] Start: 12-21-2022 End: 12-21-2022 ambulatory [facility] Work Phone: Start: 12-21-2022 End: 12-21-2022 [facility] Start: 12-21-2022 Registered [facility] [employer] Start: 12-14-2022 End: 12-14-2022 ambulatory [facility] Work Phone: Start: 12-14-2022 End: 12-14-2022 [facility] [employer] Start: 12-14-2022 Registered [facility] [employer] Start: 12-07-2022 End: 12-07-2022 ambulatory [facility] Work Phone: Start: 12-07-2022 End: 12-07-2022 [facility] Start: 12-07-2022 Registered [facility] Start: 11-24-2022 End: 11-24-2022 ambulatory [facility] Work Phone: Start: 11-24-2022 End: 11-24-2022 Departed Referred [facility] [employer] Start: 11-24-2022 Registered Referred [facility] [employer] Start: 11-23-2022 End: 11-23-2022 ambulatory [facility] Work Phone: Start: 11-23-2022 End: 11-23-2022 [facility] [employer] Start: 11-23-2022 Registered [facility] [employer] Start: 11-22-2022 End: 11-22-2022 ambulatory [facility] Work Phone: Start: 11-22-2022 End: 11-22-2022 [facility] [employer] Start: 11-22-2022 [facility] Start: 11-09-2022 End: 11-09-2022 ambulatory [facility] Work Phone: Start: 11-09-2022 End: 11-09-2022 [facility] [employer] Start: 11-09-2022 Registered Referred [facility] [employer] Start: 10-26-2022 End: 10-26-2022 [facility] [employer] Start: 10-26-2022 Registered Referred [facility] [employer] Start: 10-12-2022 End: 10-12-2022 ambulatory [facility] Work Phone: Start: 10-12-2022 End: 10-12-2022 [facility] Start: 10-12-2022 Registered [facility] [employer] Start: 10-05-2022 End: 10-05-2022 [facility] Start: 10-05-2022 Registered [facility] [employer] Start: 09-28-2022 End: 09-28-2022 ambulatory [facility] Work Phone: Start: 09-28-2022 End: 09-28-2022 [facility] Start: 09-14-2022 End: 09-14-2022 [facility] [employer] Start: 08-31-2022 End: 08-31-2022 [facility] Start: 08-31-2022 Reg[facility] [employer] Start: 08-23-2022 End: 08-23-2022 ambulatory [facility] Work Phone: Start: 08-23-2022 End: 08-23-2022 [facility] Start: 08-23-2022 Registered [facility] [employer] Start: 08-17-2022 End: 08-17-2022 ambulatory [facility] Work Phone: Start: 08-17-2022 End: 08-17-2022 [facility] [employer] Start: 08-17-2022 Registered [facility] Start: 08-14-2022 End: 08-14-2022 ambulatory [facility] Work Phone: Start: 08-14-2022 End: 08-14-2022 [facility] [employer] Start: 08-14-2022 Registered [facility] [employer] [facility] Start: 07-31-2022 End: 07-31-2022 ambulatory [facility] Work Phone: Start: 07-31-2022 End: 07-31-2022 [facility] Start: 07-31-2022 Registered Referred [facility] [employer] Start: 07-24-2022 End: 07-24-2022 ambulatory [facility] Work Phone: Start: 07-24-2022 End: 07-24-2022 [facility] [employer] Start: 07-24-2022 Registered Referred [facility] [employer] Start: 07-20-2022 End: 07-20-2022 [facility] [employer] Start: 07-20-2022 Registered Referred [facility] [facility] Start: 07-17-2022 End: 07-17-2022 [facility] [employer] Start: 07-17-2022 Registered [facility] [employer] [facility] Start: 07-11-2022 Registered [facility] Start: 07-10-2022 End: 07-10-2022 ambulatory [facility] Work Phone: Start: 07-10-2022 End: 07-10-2022 [facility] [employer] Start: 07-10-2022 Registered [facility] Start: 07-03-2022 End: 07-03-2022 ambulatory [facility] Work Phone: Start: 07-03-2022 End: 07-03-2022 [facility] [employer] Start: 07-03-2022 Registered [facility] Start: 06-27-2022 End: 06-27-2022 ambulatory [facility] Work Phone: Start: 06-27-2022 End: 06-27-2022 [facility] Start: 06-27-2022 Registered [facility] [employer] Start: 06-13-2022 End: 06-13-2022 ambulatory [facility] Work Phone: Start: 06-13-2022 End: 06-13-2022 Departed Referred [facility] [facility] Start: 06-13-2022 Registered Referred [facility] [employer] Start: 06-06-2022 End: 06-06-2022 ambulatory [facility] Work Phone: Start: 06-06-2022 End: 06-06-2022 [facility] Start: 06-06-2022 [facility] [employer] Start: 05-30-2022 End: 05-30-2022 ambulatory [facility] Work Phone: Start: 05-30-2022 End: 05-30-2022 [facility] Start: 05-30-2022 [facility] [employer] Start: 05-16-2022 End: 05-16-2022 ambulatory [facility] Work Phone: Start: 05-16-2022 End: 05-16-2022 [facility] Start: 05-16-2022 Registered Referred [facility] Start: 05-02-2022 End: 05-02-2022 ambulatory [facility] Work Phone: Start: 05-02-2022 End: 05-02-2022 [facility] Start: 05-02-2022 [facility] Start: 04-27-2022 End: 04-27-2022 ambulatory [facility] Work Phone: Start: 04-27-2022 End: 04-27-2022 [facility] Start: 04-27-2022 Registered Referred [facility] Start: 04-26-2022 End: 04-26-2022 ambulatory [facility] Work Phone: Start: 04-26-2022 End: 04-26-2022 Departed Referred [facility] [facility] Start: 04-11-2022 End: 04-11-2022 ambulatory [facility] Work Phone: Start: 04-11-2022 End: 04-11-2022 Departed Referred [facility] Start: 03-28-2022 End: 03-28-2022 Departed Referred [facility] Start: 03-28-2022 Registered Referred [facility] Start: 03-23-2022 End: 03-23-2022 Departed Referred [facility] Start: 03-23-2022 Registered Referred [facility] Start: 03-16-2022 End: 03-16-2022 ambulatory [facility] Work Phone: Start: 03-16-2022 End: 03-16-2022 Departed Referred [facility] Start: 03-16-2022 Registered Referred [facility] Start: 03-09-2022 End: 03-09-2022 ambulatory [facility] Work Phone: Start: 03-09-2022 End: 03-09-2022 Departed Referred [facility] Start: 03-09-2022 Registered Referred [facility] Start: 03-06-2022 End: 03-06-2022 ambulatory [facility] Work Phone: Start: 03-06-2022 End: 03-06-2022 [facility] Start: 03-06-2022 Registered Referred [facility] Start: 03-02-2022 End: 03-03-2022 Emergency department patient visit UNKNOWN PROVIDER [facility] Start: 03-02-2022 End: 03-02-2022 Emergency department patient visit Lanette Munguia Work Phone: [facility] Emergency Dept Comment on above: Fall, initial encoun ter (Primary Dx); Anticoagulated Start: 02-20-2022 End: 02-20-2022 Departed Referred [facility] Start: 02-20-2022 Registered Referred [facility] Start: 02-13-2022 End: 02-13-2022 ambulatory [facility] Work Phone: Start: 02-13-2022 End: 02-13-2022 Departed Referred [facility] Start: 02-13-2022 Registered Referred [facility] Start: 02-06-2022 End: 02-06-2022 ambulatory [facility] Work Phone: Start: 02-06-2022 End: 02-06-2022 Departed Referred [facility] Start: 02-06-2022 Registered Referred [facility] Start: 01-30-2022 End: 01-30-2022 Departed Referred [facility] Start: 01-30-2022 Registered Referred [facility] Start: 01-26-2022 End: 01-26-2022 ambulatory [facility] Work Phone: Start: 01-26-2022 End: 01-26-2022 Departed Referred [facility] [employer] Start: 01-26-2022 Registered Referred [facility] Start: 01-19-2022 End: 01-19-2022 ambulatory [facility] Work Phone: Start: 01-19-2022 End: 01-19-2022 [facility] Start: 01-19-2022 [facility] Start: 01-17-2022 ambulatory [facility] Start: 01-10-2022 ambulatory [facility] Start: 01-10-2022 End: 01-10-2022 ambulatory [facility] Work Phone: Start: 01-10-2022 End: 01-10-2022 [facility] Start: 01-10-2022 Registered Referred [facility] Start: 01-06-2022 AUDIT Monika Elias rt Work Phone: [facility] Work Phone: Start: 01-05-2022 End: 01-05-2022 [facility] Start: 01-05-2022 [facility] Start: 12-30-2021 End: 12-30-2021 [facility] Start: 12-30-2021 Registered Referred [facility] Start: 12-28-2021 End: 12-28-2021 ambulatory [facility] Work Phone: Start: 12-28-2021 End: 12-28-2021 [facility] Start: 12-28-2021 [facility] Start: 12-26-2021 End: 12-26-2021 ambulatory [facility] Work Phone: Start: 12-26-2021 End: 12-26-2021 [facility] Start: 12-26-2021 [facility] Start: 12-22-2021 End: 12-22-2021 ambulatory [facility] Work Phone: Start: 12-22-2021 End: 12-22-2021 Departed Referred [facility] Start: 12-22-2021 Registered Referred [facility] Start: 12-22-2021 End: 12-22-2021 [facility] Start: 12-21-2021 End: 12-22-2021 Emergency department patient visit Sharon Olivia MD Work Phone: [facility] Emergency Dept Comment on above: Heel ulceration, lef t, with unspecified severity (HCC) (Primary Dx) Start: 12-19-2021 End: 12-19-2021 ambulatory [facility] Work Phone: Start: 12-19-2021 End: 12-19-2021 Departed Referred [facility] Start: 12-19-2021 Registered Referred [facility] Start: 12-12-2021 End: 12-12-2021 ambulatory [facility] Work Phone: Start: 12-12-2021 End: 12-12-2021 Departed Referred [facility] Start: 12-12-2021 Registered Referred [facility] Start: 12-08-2021 End: 12-08-2021 ambulatory [facility] Work Phone: Start: 12-08-2021 End: 12-08-2021 Departed Referred [facility] Start: 12-08-2021 Registered Referred [facility] Start: 12-05-2021 End: 12-05-2021 ambulatory [facility] Work Phone: Start: 12-05-2021 End: 12-05-2021 Departed Referred [facility] Start: 12-05-2021 [facility] Start: 12-01-2021 End: 12-01-2021 [facility] Start: 12-01-2021 [facility]istered [facility] Start: 11-28-2021 End: 11-28-2021 [facility] Start: 11-28-2021 [facility] Start: 11-25-2021 Rx Renewal Monika Elias rt Work Phone: [id number] Work Phone: Start: 11-23-2021 End: 11-23-2021 [facility] Start: 11-23-2021 [facility]istered [facility] Start: 11-22-2021 End: 11-22-2021 [facility] Start: 11-22-2021 [facility]istered [facility] Start: 11-21-2021 End: 11-21-2021 [facility]ed [facility] Start: 11-15-2021 AUDIT Shiela Jada rt Work Phone: [id number] Work Phone: Start: 11-14-2021 End: 11-14-2021 [facility]ed [facility] Start: 11-14-2021 [facility]istered [facility] Start: 11-08-2021 End: 11-08-2021 [facility] Start: 11-08-2021 Registered [facility] Start: 11-04-2021 End: 11-04-2021 [facility]ed [facility] Start: 11-04-2021 Registered Referred [facility] Start: 10-31-2021 End: 11-01-2021 Emergency department patient visit UNKNOWN PROVIDER [facility] Start: 10-31-2021 End: 11-01-2021 Emergency department patient visit Dante Kim MD Work Phone: [facility] Emergency Dept Comment on above: Other fatigue (Prima ry Dx) Start: 10-31-2021 End: 10-31-2021 Departed Referred [facility] Start: 10-21-2021 End: 10-29-2021 Evaluation and management of inpatient UNKNOWN PROVIDER [facility] Start: 10-21-2021 End: 10-29-2021 Evaluation and management of inpatient Lisa Michelle DO Work Phone: [facility] Comment on above: Leg swelling (Primar y Dx); Acute deep vein thrombosis (DVT) of proximal vein of lower extremity, unspecified laterality (HCC) Start: 10-20-2021 End: 10-20-2021 Departed Referred [facility] Start: 10-17-2021 Telephone encounter Nicole davis MD Work Phone: [facility] Comment on above: Missed Appointment Start: 09-19-2021 End: 09-19-2021 Departed Referred [facility] Start: 11-02-2020 AUDIT Monika Elias rt Work Phone: [facility] Work Phone: Start: 10-27-2020 AUDIT Monika Elias rt Work Phone: [facility] Work Phone: Start: 07-13-2020 Patient encounter procedure Monika Staley [facility] Work Phone: Start: 04-13-2020 [facility] Work Phone: Start: 04-07-2020 Patient encounter procedure Wing Ritter [facility] Work Phone: Start: 03-18-2020 Patient encounter procedure Wing Stone [facility] Work Phone: Start: 01-20-2020 Patient encounter procedure Monika Staley MD [facility][id number]-[id number] Work Phone: Start: 11-13-2019 End: 11-13-2019 Subsequent hospital visit by physician [facility] Comment on above: Non-pressure chronic ulcer left lower leg, 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] Start: 11-06-2019 Patient encounter procedure Monika Staley MD [id number]-Aqdul Work Phone: Start: 06-18-2019 End: 06-18-2019 Subsequent [...] Start: 10-26-2021 Electroencephalogram w/rec awake&asleep Sarina Pineda FLEET DISPATCH MANAGER - ARABIC PROFESSOR Work Phone: Start: 10-26-2021 Ct head/brain w/o co ntrast material Sarina Pineda FLEET DISPATCH MANAGER - ARABIC PROFESSOR Work Phone: Start: 10-26-2021 Prothrombin time Andres Sheridan MD Work Phone: Start: 10-25-2021 Speech and language therapy regime Sarina Pineda FLEET DISPATCH MANAGER - ARABIC PROFESSOR Work Phone: Start: 10-25-2021 Prothrombin time Andres [...] Blood count reticulo cyte automated Ellen Scherer FLEET DISPATCH MANAGER - ARABIC PROFESSOR Work Phone: Start: 10-21-2021 C-reactive protein Loua nn B Niesha FLEET DISPATCH MANAGER - ARABIC PROFESSOR Work Phone: Start: 10-21-2021 Non-invas physiologi c std extremity art 2 level Shruthi Malik FLEET DISPATCH MANAGER - ARABIC PROFESSOR Work Phone: Start: 10-21-2021 Radex calcaneus mini mum 2 views Shruthi Malik FLEET DISPATCH MANAGER - ARABIC PROFESSOR Work Phone: Start: 10-21-2021 Dup-scan xtr veins [...] Comment: Speci men Type: BLOOD SPECIMENOrdering Facility: [facility] Address: [address] [place] [address] Performed By: #### T SCR ####[facility] BLOOD BANKIA [id number] [address] Start: 08-04-2021 Antibody screen Comment on above: Order Comment: Speci men Type: BLOOD SPECIMENOrdering Facility: [facility] Address: [address] [place] [address] Performed By: #### T SCR ####[facility] BLOOD BANKIA [id number] [address] Start: 08-01-2021 Antibody screen Comment on above: Order Comment: Speci men Type: BLOOD SPECIMENOrdering Facility: [facility] Address: [address] [place] [address] Performed By: #### T SCR ####[facility] BLOOD BANKCLIA [id number] [place] [address] [facility] Start: 06-07-2021 Antibody screen Comment on above: Order Comment: Speci men Type: BLOOD SPECIMEN Performed By: #### T SCR ####[facility] BLOOD BANKCLIA [id number] [place] [address] [facility] Start: 09-02-2020 Lipid 1996 panel - S bradly or Plasma Rebecca Buck MD Work Phone: Start: 04-07-2020 Echocardiography Wing Ritter Start: 11-13-2019 Radiologic examinati on tibia & fibula 2 views 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 (Pharmacoepidemiologist) Debbie Work Phone: Hernia repair Monika melvin History of Cholecystotomy An yvette Staley History of Creation Of Subdural-Peritoneal CSF Shunt Monika Staley History of Interrupt ion Inferior Vena Cava [place] Filter Placement Monika Staley Urine culture Plan of Treatment Date Care Activity Detail Author Start: 09-22-2026 DTaP/Tdap/Td vaccine (2 - Td or Tdap) DTaP/Tdap/Td vaccine (2 - Td or Tdap) [facility] Start: 09-22-2026 DTaP/Tdap/Td vaccine (2 - Td) DTaP/Tdap/Td vaccine (2 - Td) [facility] Work Phone: Start: 09-22-2026 DTaP/Tdap/Td Vaccine s (2 - Td or Tdap) DTaP/Tdap/Td Vaccines (2 - Td or Tdap) [facility] Start: 09-02-2025 Lipid panel Lipid Panel [facility] Start: 03-02-2025 Registered Referred Registered [facility] [employer] Start: 02-26-2025 Registered Referred Registered [facility] red [facility] Start: 02-23-2025 Registered Referred Registered Refer red [facility] Start: 02-19-2025 Registered Referred Registered Refer red [facility] Start: 02-16-2025 Registered Referred Registered Refer red [facility] Start: 08-22-2024 DIABETES SCREEN DIABETES SCREEN [facility] Start: 12-04-2023 Lipid panel Lipids [facility] Start: 12-04-2023 Lipid screen Lipid screen [facility] Work Phone: Start: 09-13-2023 End: 09-13-2023 Patient encounter procedure 09/13/2023 11:30 AM EDT Office Visit [facility] [address] [place] [id number] Rebecca Buck MD [address] [place] [address] [facility] Start: 08-31-2023 End: 08-31-2023 Patient encounter procedure 08/31/2023 9:30 AM EDT Appointment [facility] Imaging [address] [place] [id number] Rebecca Buck MD [address] [place] [address] [facility] Imaging Start: 08-13-2023 End: 08-12-2024 Basic metabolic 1998 panel - Serum or Plasma Basic metabolic panel Lab Routine Calculus of ureter Expected: 08/13/2023 (Approximate), Expires: 08/12/2024 [facility] Comment on above: Expected: 08/13/2023 (Approximate), Expires: 08/12/2024 Start: 08-13-2023 End: 08-12-2024 CT Abdomen WO contrast CT abdomen pelvis wo IV contrast Imaging Routine Left flank pain Calculus of ureter Expected: 08/13/2023, Expires: 08/12/2024 [facility] Comment on above: Expected: 08/13/2023 , Expires: 08/12/2024 Start: 08-13-2023 End: 02-12-2024 PSA, Monitoring ([facility]) PSA, Monitoring ([facility]) Lab Routine Disease of prostate Expected: 08/13/2023 (Approximate), Expires: 02/12/2024 [facility] Work Phone: Comment on above: Expected: 08/13/2023 (Approximate), Expires: 02/12/2024 Start: 08-13-2023 End: 08-13-2023 Patient encounter procedure 08/13/2023 10:00 AM EDT Office Visit [facility] [address] [place] [phone] Rebecca Buck MD [address] [place] [address] [facility] Start: 07-17-2023 Bacteria identified in Urine by Culture [facility] Start: 07-17-2023 [facility] Start: 07-16-2023 Measurement of substance [facility] Start: 05-07-2023 Medicare Advantage A nnual Wellness Visit Medicare Advantage Annual Wellness Visit [facility] Start: 03-02-2023 Creatinine measurement Creatinine Le carmela [facility] Start: 03-02-2023 Potassium measurement Potassium Leve l [facility] Start: 08-22-2022 Diabetes mellitus screening Diabetes Screening [facility] Start: 01-05-2022 Influenza vaccination [facility] Start: 12-23-2021 EPV, Provider: Wing Ritter, Status: Pen, Time: 9:30 AM EPV, Provider: Wing Ritter, Status: Pen, Time: 9:30 AM [facility]cig[facility]pwa-Oit ct Work Phone: Start: 12-05-2021 Influenza vaccination Flu vaccine (# 1) [facility] Start: 12-05-2021 Blood chemistry [facility] Work Phone: Start: 12-05-2021 Complete blood count [facility] Work Phone: Start: 12-05-2021 [facility] Work Phone: Start: 12-01-2021 [facility] Work Phone: Start: 08-05-2021 COVID-19 VACCINE (4 - Booster for Moderna series) COVID-19 VACCINE (4 - Booster for Moderna series) [facility] Start: 08-05-2021 COVID-19 Vaccine (4 - Booster for Pfizer series) COVID-19 Vaccine (4 - Booster for Pfizer series) [facility] Start: 06-01-2021 COVID-19 Vaccine (4 - Booster for Pfizer series) COVID-19 Vaccine (4 - Booster for Pfizer series) [facility] Start: 05-07-2021 ADVANCE DIRECTIVE DISCUSSION ADVANCE DIRECTIVE DISCUSSION [facility] Start: 08-11-2020 Screening for malign ant neoplasm of colon [facility] Start: 07-30-2020 Screening for malign ant neoplasm of colon [facility] Start: 01-20-2020 Echocardiography Echocardiogram [facility] [address] [place] Work Phone: Start: 01-06-2020 Influenza vaccination INFLUENZA (#1) [facility] Start: 12-04-2019 Annual Wellness Visi t (AWV) Annual Wellness Visit (AWV) [facility] Start: 12-04-2019 Creatinine monitoring Creatinine mon itoring [facility] Work Phone: Start: 12-04-2019 Hepatitis C screen Hepatitis C scree n [facility] Work Phone: Comment on above: Postponed from 05/06 (Patient Refused) Start: 12-04-2019 Potassium monitoring Potassium monit oring [facility] Work Phone: Start: 12-04-2019 Prostate specific an tigen measurement Prostate Specific Antigen (PSA) Screening or Monitoring [facility] Start: 12-04-2019 Shingles Vaccine (1 of 2) Day gles Vaccine (1 of 2) [facility] Work Phone: Comment on above: Postponed from 05/06 (Patient Refused) Start: 06-07-2019 Colon Cancer Screen FIT/FOBT [facility] Work Phone: Start: 08-14-2017 LIPID SCREEN LIPID SCREEN [facility] Start: 2017 ADVANCE DIRECTIVE DISCUSSION ADVANCE DIRECTIVE DISCUSSION [facility] Start: 2017 PNEUMOCOCCAL: 65+ (1 - PCV) PNEUMOCOCCAL: 65+ (1 - PCV) [facility] Start: 2017 PNEUMOVAX AGE 65 AND OVER WITH 5YR LOOKBACK (#1) PNEUMOVAX AGE 65 AND OVER WITH 5YR LOOKBACK (#1) [facility] Start: 04-14-2016 DIABETES SCREEN DIABETES SCREEN [facility] Start: 2012 RSV Immunization age d 60 or older (1 - 1-dose 60+ series) RSV Immunization aged 60 or older (1 - 1-dose 60+ series) [facility] Start: 2007 PROSTATE CANCER SCRE ENING DISCUSSION PROSTATE CANCER SCREENING DISCUSSION [facility] Start: 2002 Shingles vaccine (1 of 2) Day gles vaccine (1 of 2) [facility] Start: 2002 SHINGRIX VACCINE (1 of 2) DAY GRIX VACCINE (1 of 2) [facility] Start: 2002 Tuberculosis screening COLOREC MONIQUE CANCER SCREENING,SEE MODIFIER [facility] Start: 2002 Zoster Vaccines (1 of 2) Zoste r Vaccines (1 of 2) [facility] Start: 1997 COLOGUARD (FIT-DNA) COLOGUARD (FIT-D NA) [facility] Start: 1997 Colonoscopy COLONOSCOPY [facility] Start: 1997 COLORECTAL CANCER SCREENING COLORECTAL CANCER SCREENING [facility] Start: [address] COLONOGRAPHY [facility] Start: 1997 FECAL OCCULT BLOOD FECAL OCCULT BLOO D [facility] Start: 1997 Screening for malign ant neoplasm of colon [facility] Start: 1997 SIGMOIDOSCOPY SIGMOIDOSCOPY [facility] Start: 1987 Diabetes screen Diabetes screen [facility] Start: 1971 Urine microalbumin profile DTAP,TDAP,TD (1 - Tdap) [facility] Start: 1970 ANNUAL PCP TEAM COLORIST KEESHA DISEASE VISIT ANNUAL PCP TEAM CHRONIC DISEASE VISIT [facility] Start: 1970 BP CONTROLLED (<130/80) BP CONTROLLE D (<130/80) [facility] Start: 1970 Diabetes mellitus screening Diabetes Screening [facility] Start: 1970 HEPATITIS C SCREENING HEPATITIS C SC PHIL [facility] Start: 1970 Hepatitis C screening [facility] Start: 1964 Adult depression screening assessment DEPRESSION SCREENING [facility] Start: 1964 Depression Screen Depression Screen [facility] Start: 1962 Diabetic foot examination Diabetes: Foot Exam [facility] Start: 1962 Glaucoma screening Diabetes: R etinopathy Screening [facility] Start: 1962 Preventive dental service Diabetes: Dental Exam [facility] Start: 1952 Echocardiography Echocardiogram [facility] Start: 1952 Hemoglobin A1c measurement Diabetes: Hemoglobin A1C [facility] Start: 1952 Lipid panel Lipid Panel [facility] Start: 1952 Screening for malign ant neoplasm of colon [facility] Bacteria identified in Urine by Culture Urine Culture [facility] Work Phone: End: 03-02-2022 CBC W Auto Differential panel - Blood CBC with Auto Differential Lab Routine One Time for 1 Occurrences starting 03/02/2022 until 03/02/2022 [facility] Work Phone: Comment on above: One Time for 1 Occur rences starting 03/02/2022 until 03/02/2022 End: 03-02-2022 Comprehensive metabolic 2000 panel - Serum or Plasma Comprehensive Metabolic Panel Lab STAT One Time for 1 Occurrences starting 03/02/2022 until 03/02/2022 [employer] Work Phone: Comment on above: One Time for 1 Occur rences starting 03/02/2022 until 03/02/2022 End: 09-06-2023 CT Abdomen WO contrast [facility] Work Phone: Comment on above: Once for 1 Occurrenc es starting 09/06/2023 until 09/06/2023 End: 12-22-2021 Culture, Blood 2 Culture, Blood 2 Microbiology STAT One Time for 1 Occurrences starting 12/22/2021 until 12/22/2021 [employer] Work Phone: Comment on above: One Time for 1 Occur rences starting 12/22/2021 until 12/22/2021 End: 12-22-2021 Microscopic examination of blood, culture Culture, Blood Microbiology STAT One Time for 1 Occurrences starting 12/22/2021 until 12/22/2021 [employer] Work Phone: Comment on above: One Time for 1 Occur rences starting 12/22/2021 until 12/22/2021 Microscopic examinat ion of blood, culture Culture, Blood Microbiology STAT 12/22/2021 12:22 AM EDT [facility] Work Phone: Oxygen therapy [[facility]] Initiate Oxygen Therapy Protocol Respiratory Care Routine As Needed until discontinued starting 10/21/2021 [facility] Comment on above: As Needed until disc ontinued starting 10/21/2021 Protime-INR Protime-INR Lab Routine Daily until discontinued starting 10/23/2021, 7 completed [facility] Work Phone: Comment on above: Daily until disconti nued starting 10/23/2021, 7 completed End: 03-02-2022 Protime-INR Protime-INR Lab Routine One Time for 1 Occurrences starting 03/02/2022 until 03/02/2022 [facility] Work Phone: Comment on above: One Time for 1 Occur rences starting 03/02/2022 until 03/02/2022 Spirometry panel Incentive stef metry Respiratory Care Routine Daily until discontinued starting 10/21/2021 [facility] Work Phone: Comment on above: Daily until disconti nued starting 10/21/2021 End: 10-21-2021 Wound ostomy eval Wound ostomy eval Wound Ostomy Routine One Time for 1 Occurrences starting 10/21/2021 until 10/21/2021 [facility] Work Phone: Comment on above: One Time for 1 Occur rences starting 10/21/2021 until 10/21/2021 [facility] NEGATED: Highlighted row has been ruled out! Planned Goals not documented [facility] Work Phone: Immunizations Immunization Date Immunization Notes Care Provider Christopher chu 03-04-2019 influenza, high dose seasonal, preservative-free [facility] 12-03-2018 pneumococcal polysac charide vaccine, 23 valent Sarika Salsa [facility] Work Phone: 01-25-2018 influenza, high dose seasonal, preservative-free Sarika Salas [facility] 02-14-2017 influenza, injectabl e, quadrivalent, contains preservative Sarika Salas [facility] 09-22-2016 pneumococcal conjuga te vaccine, 13 valent Sarika Salas [facility] Work Phone: 09-22-2016 tetanus toxoid, redu patrice diphtheria toxoid, and acellular pertussis vaccine, adsorbed Sarika ARMENDARIZ Work Phone: 02-24-2016 influenza, injectabl e, quadrivalent, contains preservative Sarika ARMENDARIZ 02-08-2015 influenza virus vacc ine, unspecified formulation Sarika ERAZOA Work Phone: 02-04-2013 pneumococcal Conjuga te, unspecified formulation Sarika ARMENDARIZ Work Phone: Payers Date Payer Category Payer Unknown [id number] 03-19-2024 Self-pay 01-05-2022 Medicaid 01-05-2022 Medicare 01-05-2022 Medicare [id number] 10-05-2021 Medicaid [id number]. 2.7.3.668934.315 06-07-2021 Medicare UHC MEDICARE UHC DUAL COMPLETE HMO SNP [id number] 06/07/2021-Present [phone] [address] [place] [address] Medicare [id number] 1.2.840.384636.1.13.159. 2.7.3.663667.315 06-07-2021 Medicare UHC MEDICARE UNITEDHEALTHCARE DUAL COMPLETE [id number] 06/07/2021-Present [phone] [address] [place] [address] [id number] 1.2.840.426825.1.13.239. 2.7.3.389073.315 11-05-2019 Medicare UHC AARP MEDICAR E [facility] AARP MEDICARE HMO [id number] 11/05/2019-Present [id number] 1.2.840.179661.1.13.159. 2.7.3.458780.315 07-06-2015 Medicare UHC MEDICARE UHC MEDICARE COMPLETE xxxxxxxxx 2015-Present xxxxxxxxx 1.2.840.624931.1.13.239. 2.7.3.516150.315 1950 Unknown [id number] 2.16.840.1.202678.3.579. 2.668 1950 Unknown [id number] 2.840.1.225053.3.579. 2.668 1950 Unknown [id number] 2..840.1.513998.3.579. 2.05-06-1950 Unknown [id number] .840.1.209948.3.579. 2.05-06-1950 Unknown [id number] 2.840.1.884008.3.579. 2.05-06-1950 Unknown [id number] 2.840.1.255128.3.579. 2.8 1950 Unknown [id number] 2.840.1.773393.3.579. 2.8 Private Health Insurance Unknown Unknown [id number] 2.840.1.361106.3.579. 2.462 Unknown [id number] 2.840.1.989861.3.579. 2.462 Unknown [id number] 2.840.1.440543.3.579. 2.462 Unknown [id number] 2.840.1.802716.3.579. 2.462 Unknown [id number] 2.840.1.135480.3.579. 2.462 Unknown [id number] .840.1.457092.3.579. 2.462 Unknown [id number] 2.840.1.650446.3.579. 2.462 Unknown [id number] 2.840.1.209088.3.579. 2.462 Unknown [id number] 2.840.1.150340.3.579. 2.462 Unknown [id number] 2.840.1.033479.3.579. 2.462 Unknown [id number] 2.16.840.1.087126.3.579. 2.462 Unknown [id number] 2.16.840.1.342071.3.579. 2.462 Unknown [id number] 2.16.840.1.184772.3.579. 2.462 Unknown [id number] 2.16.840.1.270771.3.579. 2.462 Unknown [id number] 2.16.840.1.728313.3.579. 2.462 Unknown [id number] 2.16.840.1.097215.3.579. 2.462 Unknown [id number] 2.840.1.947789.3.579. 2.462 Unknown [id number] 2..840.1.508760.3.579. 2.462 Unknown [id number] 2.840.1.132029.3.579. 2.462 Unknown [id number] 2.840.1.424700.3.579. 2.462 Unknown [id number] 2.840.1.458500.3.579. 2.462 Unknown [id number] 2.16.840.1.245572.3.579. 2.462 Unknown [id number] 2.16.840.1.190084.3.579. 2.462 Unknown [id number] 2.840.1.507879.3.579. 2.462 Unknown [id number] 2..840.1.416307.3.579. 2.462 Unknown [id number] 2.16.840.1.932834.3.579. 2.462 Unknown [id number] 2.16.840.1.495166.3.579. 2.462 Unknown [id number] 2.16.840.1.286305.3.579. 2.462 Unknown [id number] 2.840.1.892902.3.579. 2.462 Unknown [id number] 2.16.840.1.718939.3.579. 2.462 Unknown [id number] 2.16.840.1.503920.3.579. 2.462 Unknown [id number] 2.16.840.1.217417.3.579. 2.462 Unknown [id number] 2.16840.1.031740.3.579. 2.462 Unknown [id number] 2.16.840.1.913199.3.579. 2.462 Unknown [id number] 2.840.1.463062.3.579. 2.462 Unknown [id number] 2.840.1.218516.3.579. 2.462 Unknown [id number] 2.840.1.584238.3.579. 2.462 Unknown [id number] 2.840.1.494279.3.579. 2.462 Unknown [id number] 2.840.1.086242.3.579. 2.462 Unknown [id number] 2.840.1.837597.3.579. 2.462 Unknown [id number] 2.840.1.423615.3.579. 2.462 Unknown [id number] 2.840.1.933282.3.579. 2.462 Unknown [id number] 2.840.1.764105.3.579. 2.462 Unknown [id number] 2.840.1.438528.3.579. 2.462 Unknown [id number] 2.840.1.102793.3.579. 2.462 Unknown [id number] 2.840.1.303836.3.579. 2.462 Unknown [id number] 2.16840.1.259192.3.579. 2.462 Unknown [id number] 2.16.840.1.516958.3.579. 2.462 Unknown [id number] 2.16.840.1.716890.3.579. 2.462 Unknown [id number] 2.16.840.1.016588.3.579. 2.462 Unknown [id number] 2.16.840.1.723538.3.579. 2.462 Unknown [id number] 2.16.840.1.193121.3.579. 2.462 Unknown [id number] 2.16.840.1.814942.3.579. 2.462 Unknown [id number] 2..840.1.600317.3.579. 2.462 Unknown [id number] 2..840.1.521475.3.579. 2.462 Unknown [id number] 2.840.1.691080.3.579. 2.462 Unknown [id number] 2..840.1.053112.3.579. 2.462 Unknown [id number] 2..840.1.611795.3.579. 2.462 Unknown [id number] 2..840.1.555276.3.579. 2.462 Unknown [id number] 2..840.1.878768.3.579. 2.462 Unknown [id number] 2.840.1.033836.3.579. 2.462 Unknown [id number] 2..840.1.349273.3.579. 2.462 Unknown [id number] 2..840.1.383453.3.579. 2.462 Unknown [id number] 2.16.840.1.641356.3.579. 2.462 Unknown [id number] 2.16.840.1.174711.3.579. 2.462 Unknown [id number] 2..840.1.153537.3.579. 2.462 Unknown [id number] 2.16.840.1.341725.3.579. 2.462 Unknown [id number] 2.16.840.1.140514.3.579. 2.462 Unknown [id number] 2.16.840.1.239660.3.579. 2.462 Unknown [id number] 2.16.840.1.214021.3.579. 2.462 Unknown [id number] 2.16.840.1.437321.3.579. 2.462 Unknown [id number] 2.16.840.1.026794.3.579. 2.462 Unknown [id number] 2.16.840.1.971063.3.579. 2.462 Unknown [id number] 2.16.840.1.247660.3.579. 2.462 Unknown [id number] 2.16840.1.699843.3.579. 2.462 Unknown [id number] 2.16840.1.347627.3.579. 2.462 Unknown [id number] 2.16.840.1.904069.3.579. 2.462 Unknown [id number] 2.16.840.1.439451.3.579. 2.462 Unknown 86159111 2.16.840.1.182542.3.579. 2.462 Unknown 94929652 2.16.840.1.233316.3.579. 2.462 Unknown 54723966 2.16.840.1.562611.3.579. 2.462 Unknown 71982524 2.16.840.1.257988.3.579. 2.462 Unknown 85610164 2.16.840.1.808206.3.579. 2.462 Unknown 02079047 2.16.840.1.584894.3.579. 2.462 Unknown 19252010 2.16.840.1.173313.3.579. 2.462 Unknown [id number] 2.16.840.1.982576.3.579. 2.462 Unknown 03234865 2.16.840.1.666419.3.579. 2.462 Unknown [id number] 2.16.840.1.527634.3.579. 2.462 Unknown 53222615 2.16.840.1.154673.3.579. 2.462 Unknown 69797026 2.16.840.1.681109.3.579. 2.462 Unknown 26212837 2.16.840.1.629582.3.579. 2.462 Unknown 74626614 2.16.840.1.545579.3.579. 2.462 Unknown 35741266 2.16.840.1.237807.3.579. 2.462 Unknown 36454842 2.16.840.1.676455.3.579. 2.462 Unknown 88583147 2.16.840.1.467622.3.579. 2.462 Unknown 60701834 2.16.840.1.438143.3.579. 2.462 Unknown 94604719 2.16.840.1.949702.3.579. 2.462 Unknown 38138429 2.16.840.1.157224.3.579. 2.462 Unknown [id number] 2.16.840.1.249881.3.579. 2.462 Unknown 56512701 2.16.840.1.464981.3.579. 2.462 Unknown 84128071 2.16.840.1.555117.3.579. 2.462 Unknown 44171966 2.16.840.1.038291.3.579. 2.462 Unknown 54701649 2.16.840.1.783174.3.579. 2.462 Unknown 15868234 2.16.840.1.429797.3.579. 2.462 Unknown 91252874 2.16.840.1.361108.3.579. 2.462 Unknown 55238919 2.16.840.1.080666.3.579. 2.462 Unknown [id number] 2.16.840.1.855727.3.579. 2.462 Unknown 83950927 2.16.840.1.298288.3.579. 2.462 Unknown 08241313 2.16.840.1.620529.3.579. 2.462 Unknown [id number] 2.16.840.1.299347.3.579. 2.462 Unknown [id number] 2.16.840.1.621285.3.579. 2.462 Unknown [id number] 2.16.840.1.291002.3.579. 2.462 Unknown [id number] 2.16.840.1.142821.3.579. 2.462 Unknown [id number] 2.16.840.1.953874.3.579. 2.462 Unknown [id number] 2.16.840.1.975880.3.579. 2.462 Social History Date Type Detail Facility Start: 05-23-2018 End: 05-19-2019 Tobacco smoking status PAIS Former smoker [facility] Work Phone: History of tobacco use Cigar Smoker [facility] Work Phone: Start: 05-19-2019 End: 08-13-2023 Cigarettes smoked current (pack per day) - Reported [facility] Work Phone: Start: 05-19-2019 End: 08-13-2023 Alcohol intake Current non-drinker of alcohol (finding) [facility] Work Phone: Start: 12-03-2018 History SDOH Physica l Activity DPW 7 [facility] Work Phone: Start: 12-03-2018 History SDOH Physica l Activity MPS 9 [facility] Work Phone: Start: 12-03-2018 End: 10-31-2021 History SDOH Stress 1 [facility] Work Phone: Start: 12-03-2018 History SDOH Financial 5 [facility] Work Phone: Start: 12-03-2018 History SDOH Transpo rt Med 2 [facility] Work Phone: Start: 1950 Sex Assigned At Not on file [facility] Work Phone: Start: 08-13-2012 End: 11-13-2019 Tobacco smoking status NHIS Never smoker [facility] Start: 05-23-2018 End: 11-13-2019 Tobacco use and exposure Never used [facility] Start: 11-13-2019 History SDOH Alcohol Std Drinks 98 [facility] Start: 10-11-2021 End: 02-15-2022 Exposure to SARS-CoV-2 (event) Not sure [facility] Start: 1950 Sex Assigned At Male [facility] History of tobacco use Current smoker [facility] Work Phone: History of tobacco use Cigarette Smoker [facility] Work Phone: Start: 10-31-2021 End: 08-13-2023 Tobacco use panel [facility] Tobacco smoking stat us PAIS Unknown if ever smoked [facility] Work Phone: Start: 07-11-2024 End: 08-21-2024 Sex Male (finding) [facility] NEGATED: Highlighted row - - [facility] Work Phone: Medical Equipment Procedure Code Equipment Code Equipment Origin al Text Equipment Identifier Dates Kit Bactiseal Woodard maria guadalupe Silicone Barium Catheter Shunt Sterile - [id number] Start: 06-08-2021 Catheter Bactise al 14cm External Drainage Csf Sterile Latex Free - [id number] Start: 08-05-2021 Valve Certas Shannon nt Inline - [id number] Start: 06-08-2021 Valve Certas Shannon nt Inline - [id number] Start: 08-05-2021 Cass snow [facility] - [id number] Start: 08-09-2021 Goals Date Patient Goal [...] documented Disease [facility] Physician [facility] Work Phone: Mental Status Date Assessment [...] Hydrocephalus, adult (CMS/HCC) (HCC) Kidney stone Neuropathy TRIM SETTER HELPER (ventriculoperitoneal) shunt status Past Surgical History: Procedure [...] 12:05 PM documented in this encounter [facility] 08-31-2023 Note S: Shanthi from [facility] spoke with [facility] nurse regarding voiding trial procedure. B: Onset [...] Protocols used: Information Only Call - No [facility] Tele[facility] encounter Note S: Shanthi from [facility] spoke with [facility] nurse regarding voiding trial procedure. B: Onset [...] Protocols used: Information Only Call - No Ovqcrb-SFKKH-WM [facility] 08-31-2023 Miscellaneous Notes S: Shanthi from [place] [facility] [place] spoke with [facility] nurse regarding voiding trial [...] Protocols used: Information Only Call - No [id number]-TGEPN-ZA documented in this encounter [facility] 08-29-2023 Telephone encounter Note Chidi on greg vm to advise them to call the number for the loss prevention/safety district manager to get clarification, and to call back with further questions [facility] 08-29-2023 Miscellaneous Notes Chidi on greg vm to advise them to call the number for the loss prevention/safety district manager to get clarification, and to call back with further questions Yes, they will need to call the number given to them. Please advise Name of caller: Shanthi Contact phone number: [phone] Relationship to Patient: patient Provider: MD Quinn Practice: [facility] Chief Complaint/Reason for Call: Shanthi called [...] to reach out to call Maury Cedeño Motor Vehicle Lecturer at [facility] [phone] to get clarifications. [facility] did reach back out to [facility] and advised and provider Maury's #. Please advise Best time of day caller can be reached: Any Patient advised that office/PCP has 24-48 business hours to return their call: N/A documented in this encounter [facility] 08-27-2023 Telephone encounter Note Yes, they will need to call the number given to them. [facility] 08-27-2023 Telephone encounter Note Please advise [facility] 08-21-2023 Telephone encounter Note Name of caller: Shanthi Contact phone number: [phone] Relationship to Patient: patient Provider: MD Quinn Practice: [facility] Chief Complaint/Reason for Call: Shanthi called [...] to reach out to call Maury Cedeño Motor Vehicle Lecturer at [facility] [phone] to get clarifications. [facility] did reach back out to [facility] and advised and provider Maury's #. 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 eRbecca Buck MD 08/13/23 10:45 AM documented in this encounter [facility] 06-25-2023 Telephone encounter Note [facility] called in stating appt scheduled 07/10/23 [place] has to be made further out, pt being transported by cot. Changed appt to 08/13/23 per [facility] only avail time for transport, first avail with DR Buck at 10:00 AM. [facility] 06-25-2023 Miscellaneous [facility]23 [place] has to be made further out, pt being transported by cot. Changed appt to 08/13/23 per [facility] only avail time for transport, first avail with DR Buck at 10:00 AM. documented in this encounter [facility] 12-22-2021 Hospital Discharge instructions SANIA Lou - 12/22/2021 2:32 AM EDT Please take medication as prescribed Please follow up with your Physicians as instructed in this discharge paperwork Thank you for choosing [facility] I appreciate your patience Please return to the emergency department if your symptoms worsen, or new symptoms develop as discussed documented in this encounter [facility] Work Phone: 10-29-2021 Note Hospitalist [...] abnormality and previous indwelling tubing history of TRIM SETTER HELPER shunt ? #?Bilateral lower extremity wounds-wound care [...] Medications These medications were sent to [facility] [address] [place] [address] [address] [facility] - P [phone] - F [phone] [facility] [id number] ? levETIRAcetam 750 MG tablet ? warfarin 6 MG tablet Recommended Follow-up: No follow-up provider specified. Complexity of Follow up: [] Moderate Complexity: follow up within 7-14 calendar days (83998) [x] Severe Complexity: follow up within 7 calendar days (69657) Follow up Testing, Pending results or Referrals [...] Increased fatigue or (more content not included)... [facility] 10-29-2021 Hospital Discharge instructions Fabi Subramanian RN - 10/29/2021 12:03 PM EDT Continuity of Care Form Patient Name: Andrew Sifuentes : 1950 Admit date: 10/21/2021 Discharge date: 10/29/2021 Code Status Order: Full Code Advance Directives: Admitting Physician: May Cash MD PCP: MONIKA STALEY MD Discharging Nurse: Fabi [facility] Hospital Unit/Room#: 146/1461 Discharging Unit Emergency Contact: Extended Emergency Contact Information Primary Emergency Contact: NelsonTriny Address: [address] [place] [address] [address] [place], [place] [address] [place] [address] Relation: Brother/Sister Secondary Emergency Contact: Melissa Sifuentes Mobile Relation: Child Preferred language: Solomon Islander Past Surgical History: Past Surgical History: Procedure Laterality Date BRAIN SURGERY CHOLECYSTECTOMY COLONOSCOPY HERNIA REPAIR Immunization History: Immunization History Administered Date(s) Administered Influenza Virus Vaccine 02/08/2015 Influenza, High Dose (Fluzone 65 yrs and older) 01/25/2018, 03/04/2019 Influenza, Quadv, IM, (6 mo and older Fluzone, Flulaval, Fluarix and 3 yrs and older Afluria) 02/24/2016, 02/14/2017 Pneumococcal Conjugate 13-valent (Bmckaiy25) 09/22/2016 Pneumococcal Conjugate Vaccine 02/04/2013 Pneumococcal Polysaccharide (Aoebiihex16) 12/03/2018 Tdap (Boostrix, Adacel) 09/22/2016 Active Problems: [...] Dependent Dressing Dependent Toileting Dependent Feeding Dependent Pre Coder Dependent Med Delivery whole in pudding Wound [...] Q4H prn SOB Oxygen Therapy: {Therapy; copd oxygen:84881} Ventilator: { CC Vent List:[id number]} Rehab Therapies: {THERAPEUTIC INTERVENTION:2313636249} Weight Bearing Status/Restrictions: Weight Bearing - Patient was bedbound in hospital Other Medical Equipment (for information only, NOT a DME order): wheelchair, hospital bed, and Boaz Other Treatments: Patient's personal belongings (please select all that are sent with patient): {[facility] DME Belongings:[id number]} RN SIGNATURE: CASE MANAGEMENT/SOCIAL WORK SECTION Inpatient Status Date: Readmission Risk Assessment Score: Readmission Risk Risk of Unplanned Readmission: 11 Discharging to Facility/ Agency Name: Address: Phone: Fax: Dialysis Facility (if applicable) Name: Address: Dialysis Schedule: Phone: Fax: [facility] Supervisor signature: {Esignature:605266169} PHYSICIAN SECTION Prognosis: Fair Condition at Discharge: Stable Rehab Potential (if transferring to Rehab): Fair Recommended Labs or Other Treatments After Discharge: Coumadin based on INR target range 2-3, Coumadin 6 mg on 10/30 and 10/31, recheck INR 11/01 and notify physician, ideally should be on 6 mg alt with 7 mg daily, PT/OT, follow-up with neurologist in 1 month, continue [facility] Physician Certification: I certify the above information and transfer of Andrew Sifuentes is necessary for the continuing treatment of the diagnosis listed and that he requires [facility] Facility for greater than 30 days. Update Admission H&P: No change in H&P PHYSICIAN SIGNATURE: documented in this encounter [facility] Work Phone: 10-29-2021 History of Present illness Narrative [facility] Anticoagulation Management Service ([facility]) Inpatient Warfarin Consult HPI: Andrew Sifuentes is a 71 y.o. 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 Past Medical History: Diagnosis Date ED (erectile dysfunction) Hemorrhoids Hydrocephalus, adult (HCC) Kidney stone Neuropathy TRIM SETTER HELPER (ventriculoperitoneal) shunt status Patient is newly referred to the [facility] clinic for warfarin management. Pt was [...] PharmD IRVIN Consult Service is available daily [phone]. Please search for covering pharmacist name via [employer] or Groups --> Pharmacy --> Anti-Coagulation Consult Pharmacist (on 3rd page). If no response via [employer], please page [phone]. Patient seen and chart reviewed. Afebrile. Adequate oxygenation on room air. Baseline mentation. Exam stable X 5 systems. Hgb 11.0 WBC 10.0 K Platelets 344 K Creatinine 0.71 GFR > 90 cc/min. NSE 20.8 with hemolysis. PT 30.8 INR 3.1 Conversion to Warfarin has been completed. APS w/u pending. Discussed with patient's support staff. Will continue to monitor. Total visit time > 35 minutes. Neurology Attending Progress Note SUBJECTIVE: No issues overnight. Care discussed with nursing staff/patient's medical team MRI brain reported nothing acute. Assessment and Plan: 71 yr M with H obstructive hydrocephalus s/p TRIM SETTER HELPER shunt in 1987, needing multiple revisions and [...] normal limits and both old and new TRIM SETTER HELPER shunt tubing noted. At present patient is awake, follows commands, was able to tell his name, and that he was in hospital but not oriented to time. Per documentation patient had NCSE in May 2021, was on Vimpat, but it was discontinued as there was no evidence of recurrent seizures in july 2021 by Neurology at [facility], per daughter patient was on Dilantin [...] normal limits and both old and new TRIM SETTER HELPER shunt tubing noted -EEG mild to moderate slow, no seizures reported -Labs reviewed -Hydrocephalus management per Neurosurgery. At present patient does not have hydrocephalus on CT head done this admission. No Neurosurgery services available as inpatient in [facility]. Patient can follow up with Neurosurgery as outpatient and if ends up needing inpatient neurosurgery requirement then may need to be transferred to [facility]. -No clear clinical signs of ventriculitis. Defer evaluation to primary medical team/ID as deemed necessary. -Discussed with daughter in detail on . She was concerned that patient has had h/o seizures, and he has been taken off seizure medication, per note documentation patient had NCSE in May 2021 when he was admitted to [facility]. Per daughter she would want patient [...] is no in house Neurology coverage at [facility] over the weekend, primary hospitalist team to contact data examination clerk Neurology at [facility] for any weekend neurological issues related to the patient and if need to discuss any neurological test results/findings. Other deal in house Neurology coverage will be available from Sunday at [facility] and please call data examination clerk Neurology back on Sunday if need further assistance. This note has been generated using [employer] dictation software. It may contain incorrect words, punctuation's and spellings that were not noted in the review of the note prior to signing. This note has been generated using [employer] dictation software. It may contain incorrect words, [...] eGFR >90.0 >60 mL/min EGFR IF NonAfrican Somali >90.0 >60 mL/min Calcium 9.1 8.4 - [...] 26 AST 24 BILITOT 0.4 LABALBU 3.7 @BRIE[facility]AB([facility]) ABGs: )No results for input(s): PH, PO2, [...] Radiology ACCESSION EXAM DATE/TIME PROCEDURE ORDERING PROVIDER [id number] 10/21/2021 15:30 EDT CR Calcaneus 2+ Views [id number] -HELENA, SHRUTHI Left CPT code 21716 Reason For Exam (CR Calcaneus 2+ Views [...] Result Date: 10/26/2021 [id number] Computed Tomography ACCESSION EXAM DATE/TIME PROCEDURE ORDERING PROVIDER [id number] 10/26/2021 11:[address] Head or Brain w/o JUNIE PINEDA ALLISON Contrast CPT code 82277 Reason For Exam (CT Head or Brain w/o Contrast) hydrocephalus. thank you Report CLINICAL INFORMATION: Hydrocephalus. Shunt. 3 mm axial cuts through the head are obtained without IV contrast. The examination is compared to a previous study dated 06/29/2014. FINDINGS: Old TRIM SETTER HELPER shunt tubing is noted bilaterally. The new [...] are clear. IMPRESSION: 1. Old and new TRIM SETTER HELPER shunt tubing. 2. No hydrocephalus. 3. Atrophy [...] Imaging ACCESSION EXAM DATE/TIME PROCEDURE ORDERING PROVIDER [id number] 10/23/2021 11:08 EDT MRI Abdomen w/o Contrast WING SRIVASTAVA CPT code 91873 Reason For Exam (MRI Abdomen w/o Contrast) [...] Result Date: 10/21/2021 [id number] ACCESSION EXAM DATE/TIME PROCEDURE ORDERING PROVIDER [id number] 10/21/2021 07:55 EDT NM Pulmonary Perfusion [id number] MAY BOGGS w/ Vent Aerosol CPT code 89631 A9567 Reason For Exam (NM Pulmonary Perfusion [...] Brachial Indices Extremity Bilateral Result Date: 10/22/2021 [facility] --- Ankle Brachial Index Report Patient DO GurpreetB: 1950 Study 10/21/2021 Name: Andrew Gonzalez (71yrs) Date: Age: 71 Account: [id number] Gender: M Loc: 444W BP: Ordering Physician: Shruthi Malik Machine Rigger: Rody Cross RDMS, RVT Interpreting Physician: Carina Call --- Location: [facility] --- Indications: Foot wounds. Originally ordered as a full PVR. Ordering MEAL MILLER had to modify the order to ABIs [...] supine position. Images were obtained using a [employer] vascular ultrasound machine. --- Arterial pressure indices: [...] EXTREMITY BILATERAL VENOUS DUPLEX Result Date: 10/21/2021 [facility] [place] --- Lower Extremity Venous Duplex Report Patient DO GurpreetB: 1950 Study 10/21/2021 Name: Andrew Gonzalez (71yrs) Date: Age: 71 Account: [id number] Gender: M Loc: 444 BP: Ordering Physician: May Cash Machine Rigger: Rody Cross RDMS, T Interpreting Physician: Carina [...] supine position. Images were obtained using a [employer] vascular ultrasound machine. --- Venous flow and [...] Radiology ACCESSION EXAM DATE/TIME PROCEDURE ORDERING PROVIDER [id number] 10/21/2021 08:16 EDT CR Chest 1 View Frontal [id number] MAY BOGGS CPT code 56974 Reason For Exam (CR Chest 1 View [...] Tomography ACCESSION EXAM DATE/TIME PROCEDURE ORDERING PROVIDER [id number] 10/22/2021 13:[address] Abdomen/Pelvis (No SRIVASTAVA, WING PO, No IV) CPT code 40528 Reason For Exam (CT Abdomen/Pelvis (No PO, [...] Result Date: 10/27/2021 [id number] Resonance Imaging ACCESSION EXAM DATE/TIME PROCEDURE ORDERING PROVIDER [id number] 10/27/2021 13:14 EDT MRI Brain w/o Contrast UNASSIGNED, UNASSIGNED CPT code 24369 Reason For Exam (MRI Brain w/o Contrast) stroke Patient has TRIM SETTER HELPER shunt in place, please follow Radiology protocol [...] included. Hospitalist Progress Note 10/28/2021 11:37 AM [phone]: Please page me @ [phone] for patient care issues. [phone]: Please page circuit court judge for any issues@ night Subjective: Admit Date: [...] abnormality and previous indwelling tubing history of TRIM SETTER HELPER shunt # Bilateral lower extremity wounds-wound care [...] Services This report was created using the [employer] voice-activated system. Despite prompt dictation and careful editorial review, there may be subtle contextual errors in this report, due to misrecognition of the spoken word. Speech Language Pathology Facility/Department: [facility] Dysphagia Treatment Note NAME: Andrew [...] and gloves were worn throughout this session. [facility] Anticoagulation Management Service ([facility]) Inpatient Warfarin Consult HPI: Andrew Sifuentes is a 71 y.o. 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 Past Medical History: Diagnosis Date ED (erectile dysfunction) Hemorrhoids Hydrocephalus, adult (HCC) Kidney stone Neuropathy TRIM SETTER HELPER (ventriculoperitoneal) shunt status Patient is newly referred to the [facility] clinic for warfarin management. Pt was [...] drug interactions and adjust dose accordingly. 3. [facility] will manage while inpatient and sign off at discharge. Patient resides in a SNF. 4. Will provide warfarin education including [facility] warfarin booklet, if appropriate. Brionna Le, PharmD candidate Josie Gupta RPh, PharmD [facility] Consult Service is available daily [phone]. Please search for covering pharmacist name via [employer]Vault or Groups --> Pharmacy --> Anti-Coagulation Consult Pharmacist (on 3rd page). If no response via AlienVault, please page [phone]. Follow up b/l foot wounds. No new [...] yr M with PMH obstructive hydrocephalus s/p TRIM SETTER HELPER shunt in 1987, needing multiple revisions and [...] normal limits and both old and new TRIM SETTER HELPER shunt tubing noted. At present patient is awake, follows commands, was able to tell his name, and that he was in hospital but not oriented to time. Per documentation patient had NCSE in May 2021, was on Vimpat, but it was discontinued as there was no evidence of recurrent seizures in july 2021 by Neurology at [facility], per daughter patient was on Dilantin [...] normal limits and both old and new TRIM SETTER HELPER shunt tubing noted -EEG mild to moderate slow, no seizures reported -Labs reviewed -Hydrocephalus management per Neurosurgery. At present patient does not have hydrocephalus on CT head done this admission. No Neurosurgery services available as inpatient in [facility]. Patient can follow up with Neurosurgery as outpatient and if ends up needing inpatient neurosurgery requirement then may need to be transferred to [facility]. -No clear clinical signs of ventriculitis. Defer evaluation to primary medical team/ID as deemed necessary. -Discussed with daughter in detail on . She was concerned that patient has had h/o seizures, and he has been taken off seizure medication, per note documentation patient had NCSE in May 2021 when he was admitted to [facility]. Per daughter she would want patient [...] interim. This note has been generated using [employer] dictation software. It may contain incorrect words, punctuation's and spellings that were not noted in the review of the note prior to signing. This note has been generated using [employer] dictation software. It may contain incorrect words, [...] LABALBU, AMYLASE, LIPASE in the last 72 hours.@[facility]) ABGs: )No results for input(s): PH, PO2, [...] Radiology ACCESSION EXAM DATE/TIME PROCEDURE ORDERING PROVIDER [id number] 10/21/2021 15:30 EDT CR Calcaneus 2+ Views [id number] -SHRUTHI MALIK CPT code 94174 Reason For Exam (CR Calcaneus 2+ Views [...] Tomography ACCESSION EXAM DATE/TIME PROCEDURE ORDERING PROVIDER [id number] 10/26/2021 11:[address] Head or Brain w/o JUNIE PINEDA, SARINA Contrast CPT code 86761 Reason For Exam (CT Head or Brain w/o Contrast) hydrocephalus. thank you Report CLINICAL INFORMATION: Hydrocephalus. Shunt. 3 mm axial cuts through the head are obtained without IV contrast. The examination is compared to a previous study dated 06/29/2014. FINDINGS: Old TRIM SETTER HELPER shunt tubing is noted bilaterally. The new [...] are clear. IMPRESSION: 1. Old and new TRIM SETTER HELPER shunt tubing. 2. No hydrocephalus. 3. Atrophy [...] Imaging ACCESSION EXAM DATE/TIME PROCEDURE ORDERING PROVIDER [id number] 10/23/2021 11:08 EDT MRI Abdomen w/o Contrast WING SRIVASTAVA CPT code 34438 Reason For Exam (MRI Abdomen w/o Contrast) [...] Medicine ACCESSION EXAM DATE/TIME PROCEDURE ORDERING PROVIDER [id number] 10/21/2021 07:55 EDT NM Pulmonary Perfusion [id number] -MAY CASH w/ Vent Aerosol CPT code 60643 A9567 Reason For Exam (NM Pulmonary Perfusion [...] Brachial Indices Extremity Bilateral Result Date: 10/22/2021 [facility] --- Ankle Brachial Index Report Patient DO GurpreetB: 1950 Study 10/21/2021 Name: Andrew Gonzalez (71yrs) Date: Age: 71 Account: [id number] Gender: M Loc: 444W BP: Ordering Physician: Shruthi Malik Machine Rigger: Rody Cross RDMS, RVT Interpreting Physician: Carina Call --- Location: [facility] --- Indications: Foot wounds. Originally ordered as a full PVR. Ordering MEAL MILLER had to modify the order to ABIs [...] supine position. Images were obtained using a [employer] vascular ultrasound machine. --- Arterial pressure indices: [...] EXTREMITY BILATERAL VENOUS DUPLEX Result Date: 10/21/2021 [facility] --- Lower Extremity Venous Duplex Report Patient DO GurpreetB: 1950 Study 10/21/2021 Name: Andrew Gonzalez (71yr) Date: Age: 71 Account: [id number] Gender: M Loc: 444 BP: Ordering Physician: May Cash Machine Rigger: Rody Cross RDMS, RVT Interpreting Physician: Carina [...] supine position. Images were obtained using a [employer] vascular ultrasound machine. --- Venous flow and [...] Radiology ACCESSION EXAM DATE/TIME PROCEDURE ORDERING PROVIDER [id number] 10/21/2021 08:16 EDT CR Chest 1 View Frontal [id number] MAY BOGGS CPT code 60943 Reason For Exam (CR Chest 1 View [...] Tomography ACCESSION EXAM DATE/TIME PROCEDURE ORDERING PROVIDER [id number] 10/22/2021 13:[address] Abdomen/Pelvis (No SRIVASTAVA, WING PO, No IV) CPT code 69292 Reason For Exam (CT Abdomen/Pelvis (No PO, [...] 12:48 PM Consults Speech Language Pathology Facility/Department: [facility] Dysphagia Treatment Note NAME: Andrew [...] reactivity and state change, indicative of a uazp-ib-jlfnsvbl diffuse encephalopathy of nonspecific etiology. There are [...] Easy to chew diet/cut up. NEVILLE Jones M.A.CCC/PRODUCT SUPPORT MANAGER Time session ended: 1156 Total session minutes: 23 Images from the original note were not included. Hospitalist Progress Note 10/27/2021 10:40 AM [phone]: Please page me @ [phone] for patient care issues. [phone]: Please page circuit court judge for any issues@ night Subjective: Admit Date: [...] due to misrecognition of the spoken word. [facility] Anticoagulation Management Service ([facility]) Inpatient Warfarin Consult HPI: Andrew Sifuentes is a 71 y.o. 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 Past Medical History: Diagnosis Date ED (erectile dysfunction) Hemorrhoids Hydrocephalus, adult (HCC) Kidney stone Neuropathy TRIM SETTER HELPER (ventriculoperitoneal) shunt status Patient is newly referred to the [facility] clinic for warfarin management. Pt was [...] SNF. 4. Will provide warfarin education including [facility] warfarin booklet, if appropriate. Thank you for this consult Brionna Le, PharmD candidate Josie Gupta [facility], PharmD [facility] Consult Service is available daily [phone]. Please search for covering pharmacist name via [employer]Vault or Groups --> Pharmacy --> Anti-Coagulation Consult Pharmacist (on 3rd page). If no response via PerfectServe, please page [phone]. I cleaned under patient's finger nails with [...] therapeutic status with Warfarin. Discussed with patient's support staff. Will continue to monitor. Total [...] if concern Hydrocephalus Chronic WOODARD's - Revised TRIM SETTER HELPER shunt - daughter requested that pt have CT / MRI of brain and neurology be consulted, this was done. - Hydrocephalus management per Neurosurgery. At present patient does not have hydrocephalus on CT head done this morning. No Neurosurgery services available as inpatient in [facility]. Patient can follow up with Neurosurgery as outpatient and if ends up needing inpatient neurosurgery requirement then may need to be transferred to [facility]. Seizure history, unspecified - daughter requested [...] get report from nursing. Continue wound care. [facility] Anticoagulation Management Service ([facility]) Inpatient Warfarin Consult HPI: Andrew Sifuentes is a 71 y.o. 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 Past Medical History: Diagnosis Date ED (erectile dysfunction) Hemorrhoids Hydrocephalus, adult (HCC) Kidney stone Neuropathy TRIM SETTER HELPER (ventriculoperitoneal) shunt status Patient is newly referred to the [facility] clinic for warfarin management. Pt was [...] PharmD [facility] Consult Service is available daily [phone]. Please search for covering pharmacist name via [employer] or Groups --> Pharmacy --> Anti-Coagulation Consult Pharmacist (on 3rd page). If no response via AlienVault, please page [phone]. Moon daughter stated that any of patient's family can call and obtain an update on patient's status. Speech Language Pathology Facility/Department: [facility] CLINICAL BEDSIDE SWALLOW EVALUATION NAME: [...] a small bore straw. Additionally discussed with PRODUCT SUPPORT MANAGER, agreeable to assess tomorrow. Recent Chest [...] and liquids between bites. Treatment Plan Requires PRODUCT SUPPORT MANAGER Intervention: Yes Duration of Treatment: 2 [...] Education Response: Verbalizes understanding;Needs reinforcement Therapy Time PRODUCT SUPPORT MANAGER Individual Minutes Time In: 826 Time Out: 53 Minutes: 26 NEVILLE Jones 10/26/2021 9:20 AM Comprehensive Nutrition Assessment Type and Reason for Visit: Initial (DT referral for wounds) Nutrition Recommendations/Plan: 1. Recommend to continue: Easy to Chew diet with Thin Liquids as currently ordered and safe for patient to participate in. Discussed with: RN, MEAL MILLER, and PRODUCT SUPPORT MANAGER. PRODUCT SUPPORT MANAGER to assess tomorrow, best diet and [...] & deltoids),Scapula (trapezius) Fluid Accumulation: Mild Extremities It Operations Manager Strength: Not Performed Nutrition Assessment: 71 year [...] a small bore straw. Additionally discussed with PRODUCT SUPPORT MANAGER, agreeable to assess tomorrow. Nutrition Related [...] Anthropometric Measures: Height: 5' 7.01 (170.2 cm) [place] Body Weight (IBW): 148 lbs (67 kg) [...] On: Kcal/kg Weight Used for Energy Requirements: [place] (67.15 kg) Energy (kcal/day): 2371-8726 (27-32 kcal/kg IBW) --> increased need d/t wounds Weight Used for Protein Requirements: [place] (67.15 kg) Protein (g/day): 67-101 (1.0-1.5 g protein/kg IBW) Method Used for Fluid Requirements: Other (Comment) Fluid (ml/day): 5223-8259 mL daily or per MD Nutrition Diagnosis: [...] Plan of Care discussed with: Patient, RN, MEAL MILLER Edwin Goals: Goals: other (specify) Specify Other [...] to determine Puja Almanza RD, LD Contact: *[phone] Or Via AlienVault Hematology/Oncology Attending Progress Note SUBJECTIVE: Patient seen [...] IRON, TIBC, FERRITIN No results found for: [id number] No results found for: FOLATE PT 15.6 INR 1.5 CA 19 - 9 is 17 Protein S 138% Protein C 186% ASSESSMENT AND PLAN GI input appreciated. Patient continues with subtherapeutic INR. GI input appreciated. Discussed with patient's support staff. Will continue monitor. Total visit time > 35 minutes. [facility] Anticoagulation Management Service ([facility]) Inpatient Warfarin Consult HPI: Andrew Sifuentes is a 71 y.o. male admitted on 10/21/2021 for recurrent DVT. Past Medical History: Diagnosis Date ED (erectile dysfunction) Hemorrhoids Hydrocephalus, adult (HCC) Kidney stone Neuropathy TRIM SETTER HELPER (ventriculoperitoneal) shunt status Patient is newly referred to the [facility] clinic for warfarin management. Pt was [...] drug interactions and adjust dose accordingly. 3. [facility] will manage while inpatient and sign off at discharge. Patient resides in a SNF. 4. Will provide warfarin education including [facility] warfarin booklet, if appropriate. Thank you for this consult Brionna Le, PharmD candidate Josie Gupta RPh, PharmD [facility] Consult Service is available daily [phone]. Please search for covering pharmacist name via [employer]Vault or Groups --> Pharmacy --> Anti-Coagulation Consult Pharmacist (on 3rd page). If no response via PerfectServe, please page [phone]. Progress Note 10/25/2021 9:36 AM Name: Andrew [...] if concern Hydrocephalus Chronic WOODARD's - Revised TRIM SETTER HELPER shunt DC planning - 10/25/21: INR subtherapeutic, [...] if concern Hydrocephalus Chronic WOODARD's - Revised TRIM SETTER HELPER shunt DC planning - Can be DC'd back to ECF once MRI done if no acute findings, MRI is done, defer to hem / onc on plan for that, awaiting chest PA with fluoro Patient seen and chart reviewed. Consult dictated. Will ask GI to assess concerning the etiology of liver lesions. Will continue to monitor. [facility] Anticoagulation Management Service ([facility]) Inpatient Warfarin Consult HPI: Andrew R Gurpreet is a 71 y.o. male admitted on 10/21/2021 for recurrent DVT. Past Medical History: Diagnosis Date ED (erectile dysfunction) Hemorrhoids Hydrocephalus, adult (HCC) Kidney stone Neuropathy TRIM SETTER HELPER (ventriculoperitoneal) shunt status Patient is newly referred to the [facility] clinic for warfarin management. Pt was [...] drug interactions and adjust dose accordingly. 3. [facility] will manage while inpatient and sign off at discharge. Patient resides in a SNF. 4. Will provide warfarin education including [facility] warfarin booklet, if appropriate. Thank you for this consult Brionna Le, PharmD candidate Josie Gupta RPh, PharmD [facility] Consult Service is available daily [phone]. Please search for covering pharmacist name via [employer] or Groups --> Pharmacy --> Anti-Coagulation Consult Pharmacist (on 3rd page). If no response via PerfectServe, please page [phone]. Follow up foot wounds Patient is more alert this morning. Waffle boots are on Ulcer left heel ulcer right foot Foot drop PE, chart reviewed. Patient relates that he does not walk at home. c ontinue wound care. Images from the original note were not included. Hospitalist Progress Note 10/23/2021 1:47 PM [phone]: Please page me ([phone]) or perfect serve me for patient care issues. [phone]: Please page IMS night Hospitalist for any [...] if concern Hydrocephalus Chronic WOODARD's - Revised TRIM SETTER HELPER shunt DC planning - Can be DC'd [...] Hemorrhoids Hydrocephalus, adult (HCC) Kidney stone Neuropathy TRIM SETTER HELPER (ventriculoperitoneal) shunt status Medications: sodium chloride warfarin [...] of Hospitalist Medicine Inpatient Medical Services PAGER: [phone] Nutrition rescreen completed. Pt referred to RD for foot ulcers. Occupational Therapy Facility/Department: [facility] Occupational Therapy Initial Assessment Name: Andrew Sifuentes : 1950 Date of Service: 10/23/2021 OT eval and treat orders received. Chart reviewed. Per notes pt from [facility], is Boaz lift at baseline, non-ambulatory, and requires assist for all ADLs. Will d/c OT orders. Elizabeth Gutierrez OT Physical Therapy Facility/Department: [facility] Physical Therapy Initial Assessment Name: Andrew Sifuentes : 1950 Date of Service: 10/23/2021 PT eval and treat orders received. Chart reviewed. Per notes pt from [facility], is Boaz lift at baseline, non-ambulatory. Will d/c PT orders. Lloyd Silva PT [facility] Anticoagulation Management Service ([facility]) Inpatient Warfarin Consult HPI: Andrew Sifuentes is a 71 y.o. 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 Past Medical History: Diagnosis Date ED (erectile dysfunction) Hemorrhoids Hydrocephalus, adult (HCC) Kidney stone Neuropathy TRIM SETTER HELPER (ventriculoperitoneal) shunt status Patient is newly referred to the [facility] clinic for warfarin management. Pt was [...] PharmD [facility] Consult Service is available daily [phone]. Please search for covering pharmacist name via AlienVault or Groups --> Pharmacy --> Anti-Coagulation Consult Pharmacist (on 3rd page). If no response via AlienVault, please page [phone]. Department of Podiatry Attending Consult Note Reason for Consult: Wound care Requesting Physician: MD Oksana CHIEF COMPLAINT: Foot wounds HISTORY OF PRESENT ILLNESS: The patient is a 71 y.o. male with b/l foot wounds. Patient is awake , but not answering questions. Past Medical History: Diagnosis Date ED (erectile dysfunction) Hemorrhoids Hydrocephalus, adult (HCC) Kidney stone Neuropathy TRIM SETTER HELPER (ventriculoperitoneal) shunt status Past Surgical History: Procedure [...] OT consulted. Will follow . Thank you. [facility] Respiratory Care Department Progress Note As [...] included. Hospitalist Progress Note 10/22/2021 6:33 AM [phone]: Please page me ([phone]) or perfect serve me for patient care issues. [phone]: Please page IMS night Hospitalist for any issues. Subjective: Admit Date: 10/21/2021 PCP: MONIKA STALEY MD Room#: 275/9980 Admitting Synopsis: 71 y/o male presents from [...] consider MRI if concern Hydrocephalus - Revised TRIM SETTER HELPER shunt Interval History: No overnight issues. Denies [...] no cyanosis or edema and unable to social professionals BLE, this is old Musculoskeletal: Muscle loss [...] Hemorrhoids Hydrocephalus, adult (HCC) Kidney stone Neuropathy TRIM SETTER HELPER (ventriculoperitoneal) shunt status Medications: sodium chloride baclofen [...] Advance Directive: Full Code Discharge planning: TBD CMAILLA WEBBER CNP Division of Hospitalist Medicine Inpatient Medical Services PAGER: [phone] Images from the original note were not included. Hospitalist Progress Note 10/21/2021 5:31 PM [phone]: Please page me ([phone]) or perfect serve me for patient care issues. [phone]: Please page IMS night Hospitalist for any issues. Subjective: Admit Date: 10/21/2021 PCP: MONIKA STALEY MD Room#: 513/1465 Admitting Synopsis: 71 y/o male presents from [...] Will need chronic OAC Hydrocephalus - Revised TRIM SETTER HELPER shunt Interval History: No overnight issues. Denies [...] Hemorrhoids Hydrocephalus, adult (HCC) Kidney stone Neuropathy TRIM SETTER HELPER (ventriculoperitoneal) shunt status Medications: sodium chloride baclofen [...] of Hospitalist Medicine Inpatient Medical Services PAGER: [phone] Family member Triny, sister to patient, called back to the hospital stating that she was returning a call from a provider. Her phone number is [phone] to speak with whomever was attempting to reach out to her. documented in this encounter KALA Zavala Phone: 10-17-2021 Miscellaneous Notes Mr. Sifuentes missed his hospital stay follow-up appointment w. Dr. Lim today. Called to Reschedule. Could not get through. Subscriber you have dialed not in service - was the automated voice mail. Unable to leave . No other phone# available. Ramya Negro Dishwasher [facility] documented in this encounter [facility] 08-19-2021 Note [facility] 08-19-2021 Note [facility] 08[facility]18-2021 Note [facility] 08-18-2021 Note [facility] 08-17-2021 Note [facility] 08-17-2021 Note [facility] 08-16-2021 Note [facility] 08-16-2021 Note HNO ID: [id number] Author: Katt Kelsey DO Service: Hospital Medicine Author Type: Physician Type: Plan of Care Filed: 08/16/2021 12:26 PM Note Text: Spoke with RN that line is a PICC. Ktat Kelsey DO 08/16/2021 12:26 PM [facility] 08-16-2021 Note [facility] 08-16-2021 Note [facility] 08-15-2021 Note [facility] 08-15-2021 Note [facility] 08-15-2021 Note [facility] 08-14-2021 Note [facility] 08-14-2021 Note [facility] 08-13-2021 Note [facility] 08-13-2021 Note [facility] 08-13-2021 Note [facility] 08-13-2021 Note HNO ID: [id number] Author: Interface Note Service: ? Author Type: ? Type: Progress Notes Filed: 08/13/2021 3:10 AM Note Text: Epic Scheduled Downtime: 08/13/2021 1:08:47 AM to 08/13/2021 2:53:47 AM [facility] 08-12-2021 Note [facility] 08-12-2021 Note [facility] 08-12-2021 Note [facility] 08-11-2021 Note [facility] 08-11-2021 Note [facility] 08[facility]11-2021 Note [facility] 08-11-2021 Note [facility] 08-11-2021 Note [facility] 08-11-2021 Note [facility] 08-10-2021 Note [facility] 08-10-2021 Note [facility] 08-10-2021 Note [facility] 08-10-2021 Note [facility] 08-09-2021 Note HNO ID: [id number] Author: Shannon Brooks RN Service: ? Author Type: Registered Nurse Type: Nursing Progress Note Filed: 08/09/2021 7:33 PM Note Text: Report called to unit [facility] 08-09-2021 Note [facility] 08-09-2021 Note [facility] 08-09-2021 Note [facility] 08-08-2021 Note [facility] 08-08-2021 Note [facility] 08-08-2021 Note [facility] 08-07-2021 Note [facility] 08-07-2021 Note [facility] 08-07-2021 Note [facility] 08[facility]07-2021 Note [facility] 08-07-2021 Note [facility] 08-06-2021 Note [facility] 08-06-2021 Note [facility] 08[facility]06-2021 Note [facility] 08-05-2021 Note [facility] 08-05-2021 Note [facility] 08-05-2021 Note [facility] 08-04-2021 Note [facility] 08[facility]04-2021 Note [facility] 08-04-2021 Note [facility] 08-03-2021 Note [facility] 08-03-2021 Note [facility] 08[facility]03-2021 Note [facility] 08-02-2021 Note [facility] 08-02-2021 Note [facility] 08-02-2021 Note [facility] 08-01-2021 Note [facility] 08-01-2021 Note [facility] 08[facility]01-2021 Note [facility] 08-01-2021 Note [facility] 07-31-2021 Note [facility] 07-31-2021 Note [facility] 07-30-2021 Note [facility] 07[facility]30-2021 Note [facility] 07-30-2021 Note [facility] 07-29-2021 Note [facility] 07-29-2021 Note [facility] 07[facility]29-2021 Note [facility] 07-28-2021 Note [facility] 07[facility]28-2021 Note [facility] 07-28-2021 Note [facility] 07-27-2021 Note [facility] 07[facility]27-2021 Note [facility] 07-27-2021 Note [facility] 07-26-2021 Note [facility] 07-26-2021 Note [facility] 07[facility]26-2021 Note [facility] 07[facility]26-2021 Note [facility] 07-26-2021 Note [facility] 07-25-2021 Note [facility] 07-25-2021 Note [facility] 07[facility]25-2021 Note [facility] 07[facility]25-2021 Note [facility] 07-24-2021 Note [facility] 07-24-2021 Note [facility] 07-24-2021 Note [facility] 07-23-2021 Note [facility] 07-23-2021 Note [facility] 07-23-2021 Note [facility] 07-23-2021 Note [facility] 07-23-2021 Note [facility] 07-22-2021 Note [facility] 07-22-2021 Note [facility] 07-22-2021 Note [facility] 07-21-2021 Note [facility] 07-21-2021 Note [facility] 07-21-2021 Note [facility] 07-21-2021 History of Past i [...] history of fever, elevated WBC, RP hematoma TRIM SETTER HELPER shunt tip grew anaerobic gram positive cocci 06/08/2021 PLAN: TRIM SETTER HELPER shunt tip sent to [facility] main, awaiting cx Continue Meropenem per [...] - following CSF studies; 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 for ASSISTANT PRODUCTION MANAGER infection at this time - ID following- Continue antibiotics: Meropenem -CSF leak from EVD site, appreciate NSGY recs> stat repeat CTH on 06/07 d/t concern for CSF leak, cephalematoma, CTH unremarkable -Tolerating TF - SBT WTE - PICC line placed documented as of this encounter (statuses as of 10/17/2021) [facility]03-17-2022 [facility]03-16-2022 [facility]03-16-2022 [facility]03[facility]16-2022 Note [facility]03-16-2022 [facility] 07-19-2021 [facility]03-15-2022 [facility]03[facility]15-2022 [facility]03-14-2022 [facility]03[facility]14-2022 [facility]03-13-2022 [facility]03-13-2022 [facility]03-12-2022 Note [facility]03-12-2022 [facility] 07-15-2021 [facility]03-11-2022 [facility]03-10-2022 [facility]03-10-2022 [facility]03[facility]10-2022 [facility]03-09-2022 [facility]03-09-2022 [facility]03-09-2022 Note [facility]03-09-2022 [facility] 07-12-2021 [facility]03-08-2022 [facility]03-07-2022 [facility]03-07-2022 [facility]03[facility]07-2022 [facility]03[facility]07-2022 [facility]03-06-2022 [facility]03-06-2022 Note [facility]03-05-2022 [facility] 07-09-2021 [facility]03-05-2022 [facility]03-05-2022 [facility]03-05-2022 NoteHNO ID: [id number] Author: Lizette Valderrama RN Service: Nursing Author Type: Registered Nurse Type: Nursing Progress Note Filed: 07/09/2021 1:41 AM Note Text: Report called to [facility]03-04-2022 NoteHNO ID: [id number] Author: Lizette Valderrama RN Service: Nursing Author Type: Registered Nurse Type: Nursing Progress Note Filed: 07/08/2021 8:57 PM Note Text: [address]49 back to PACU [address] [place], [place] [address]-04-2022 NoteHNO ID: [id number] Author: Sukhi Chery APRN.CNP Service: ? Author Type: Nurse Practitioner Type: Progress Notes Filed: 07/09/2021 6:46 PM Note Text: Connected Care Unit Progress Note Patient Name: Andrew Sifuentes Patient Facility: [facility] Admit Date 06/28/2021 Level of Care: [...] Dept Phone 07/21/2021 11:00 AM NICOLE LIM [phone] HPI: (Per Dr. Beltran) Andrew Sifuentes is being seen today for correction facility (SNF) admission AND management of weakness, tube feed, infected retroperitoneal infection and seizure. ? This is a 71 year old male who presents from [facility] with primary admitting diagnosis of Seizure, enteral [...] CT brain concerning for hydrocephalus. Tip of TRIM SETTER HELPER shunt was found to be in the [...] slow to respond. Ordered to transfer to [facility] ED for evaluation of neurological and [...] changes in co (more content not included)... [facility]03-04-2022 [facility]03-04-2022 [facility]03-02-2022 NoteHNO ID: [id number] Author: Sukhi Chery APRN.CNP Service: ? Author Type: Nurse Practitioner Type: Progress Notes Filed: 07/09/2021 6:20 PM Note Text: Connected Care Unit Progress Note Patient Name: Andrew Sifuentes Patient Facility: [facility] Admit Date 06/28/2021 Level of Care: [...] Dept Phone 07/21/2021 11:00 AM [facility] [phone] HPI: (Per Dr. Beltran) Andrew Sifuentes is being seen today for correction facility (SNF) admission AND management of weakness, tube feed, infected retroperitoneal infection and seizure. ? This is a 71 year old male who presents from [facility] with primary admitting diagnosis of Seizure, enteral [...] CT brain concerning for hydrocephalus. Tip of TRIM SETTER HELPER shunt was found to be in the [...] Pharynx: Oropharynx is clear. (more content not included)...[facility]02-28-2022 NoteHNO ID: [id number] Author: Sukhi Chery APRN.CNP Service: ? Author Type: Nurse Practitioner Type: Progress Notes Filed: 07/09/2021 6:07 PM Note Text: Connected Care Unit Progress Note Patient Name: Andrew Sifuentes Patient Facility: [facility] Admit Date 06/28/2021 Level of Care: [...] whether septic shock present (HCC) - Dr. Mceknzie with ID Following - Continue on Vancomycin; recent trough was 30 but nursing notes it was drawn by cheesemaker helper as vancomycin was being infused; reordered trough - PICC Line Intact - No fevers or chills per patient or staff (R53.81) Debility - Certify therapies - Maintain high falls risk precautions - pt/staff verbalize understanding validated via teach back - Monitor safety awareness Appointments for Next 60 Days Date Time Provider Location Dept Phone 07/21/2021 11:00 AM NICO[facility] [phone] HPI: (Per Dr. Beltran) Andrew Sifuentes is being seen today for correction facility (SNF) admission AND management of weakness, tube feed, infected retroperitoneal infection and seizure. ? This is a 71 year old male who presents from [facility] with primary admitting diagnosis of Seizure, enteral [...] CT brain concerning for hydrocephalus. Tip of TRIM SETTER HELPER shunt was found to be in the [...] to facility records. OBJECTIVE: Labs/diagnostics: 07/04/2021 Glucose=91 Xx=965 K=3.8 Ih=446 CO2=24 BUN=14 Creatinine=0.5 TAB=573 Ca=9.0 Protein,Total=6.7 Albumin=3.6 IoiMemd=960 AST=15 ALT=21 Bilirubin,Totall=0.5 WBC=10.7 RBC=4.04 Hgb=10.9 Hct=35.3 Rmmnirmp=967 VancomycinTr (more content not included)...[facility]02-24-2022 NoteHNO ID: [id number] Author: Sukhi Chery APRN.CNP Service: ? Author Type: Nurse Practitioner Type: Progress Notes Filed: 07/09/2021 5:43 PM Note Text: Connected Care Unit Progress Note Patient Name: Andrew Sifuentes Patient Facility: [facility] Admit Date 06/28/2021 Level of Care: [...] Dept Phone 07/21/2021 11:00 AM [facility] [phone] HPI: (Per Dr. Beltran) Andrew Sifuentes is being seen today for correction facility (SNF) admission AND management of weakness, tube feed, infected retroperitoneal infection and seizure. ? This is a 71 year old male who presents from [facility] with primary admitting diagnosis of Seizure, enteral [...] CT brain concerning for hydrocephalus. Tip of TRIM SETTER HELPER shunt was found to be in the [...] to facility records. OBJECTIVE: Labs/diagnostics: 07/01/2021 Glucose=83 Vt=493 K=4.1 Io=476 CO2=27 BUN=22 Creatinine=0.6 DBF=439 Ca=8.7 WBC=10.8 RBC=3.40 Hgb=9.3 Hct=29.9 Vfjhulsx=544 Vital Signs: BP 128/80 Pulse 77 Temp 36.7 ?C (98 ?F) Resp 20 Ht 182.9 cm (6') Wt 113 kg (249 lb 3.2 oz) SpO2 96% BMI 33.80 kg/m? Physical Exam: Physical Exam Vitals reviewed. Constitutional: General: He is not in acute distress. (more content not included)...[facility]02-21-2022 [facility]02-21-2022 Note [facility]02-20-2022 [facility] 06-26-2021 [facility]02-19-2022 [facility]02-19-2022 [facility]02-18-2022 [facility]02-18-2022 [facility]02-18-2022 [facility]02-17-2022 [facility]02-17-2022 Note [facility]02-17-2022 [facility] 06-22-2021 NoteHNO ID: [id number] Author: Xiomy England RN Service: Nursing Author Type: Registered Nurse Type: Nursing Progress Note Filed: 06/22/2021 7:22 PM Note Text: RT contacted as pt has wheezing auscultated and same auditory. For prn Treatment.[facility]02-16-2022 [facility]02-16-2022 [facility]02-16-2022 [facility]02[facility]16-2022 [facility]02-16-2022 [facility]02-15-2022 [facility]02[facility]15-2022 Note [facility]02-15-2022 [facility] 06-21-2021 [facility]02-14-2022 [facility]02[facility]14-2022 [facility]02-14-2022 [facility]02-14-2022 [facility]02[facility]14-2022 [facility]02-13-2022 [facility]02-13-2022 Note [facility]02-13-2022 [facility] 06-19-2021 [facility]02-13-2022 [facility]02[facility]12-2022 [facility]02-12-2022 [facility]02-12-2022 [facility]02[facility]12-2022 [facility]02-12-2022 [facility]02-12-2022 Note [facility]02-12-2022 NoteHNO ID: [id number] Author: Interface Note Service: ? Author Type: ? Type: Progress Notes Filed: 06/18/2021 3:10 AM Note Text: Epic Scheduled Downtime: 06/18/2021 1:00:00 AM to 06/18/2021 2:27:[facility]02-11-2022 Note [facility]02-11-2022 [facility] 06-17-2021 [facility]02-11-2022 [facility]02[facility]11-2022 [facility]02-10-2022 [facility]02-10-2022 [facility]02-10-2022 [facility]02[facility]10-2022 [facility]02-10-2022 Note [facility]02-10-2022 [facility] 06-15-2021 [facility]02-09-2022 NoteHNO ID: [id number] Author: Lamonte Kline DO Service: Neurology ICU Author Type: Resident Type: Plan of Care Filed: 06/15/2021 6:21 PM Note Text: Patient's daughter Melissa updated on plan of care and critical condition, all questions answered.[facility]02-09-2022 [facility]02-09-2022 [facility]02-09-2022 [facility]02[facility]09-2022 [facility]02-09-2022 Note [facility]02-09-2022 [facility] 06[facility]15-2021 [facility]02-08-2022 [facility]02-08-2022 [facility]02[facility]08-2022 [facility]02[facility]08-2022 [facility]02-07-2022 [facility]02[facility]07-2022 [facility]02-07-2022 Note [facility]02-07-2022 [facility] 06-12-2021 [facility]02-06-2022 [facility]02[facility]06-2022 [facility]02-05-2022 [facility]02[facility]05-2022 [facility]02-04-2022 [facility]02[facility]04-2022 [facility]02-04-2022 Note [facility]02-04-2022 [facility] 06-09-2021 [facility]02-03-2022 [facility]02-03-2022 [facility]02-03-2022 [facility]02-02-2022 [facility]02-02-2022 NoteHNO ID: [id number] Author: Luis Diaz RN Service: ? Author Type: Registered Nurse Type: Nursing Progress Note Filed: 06/08/2021 9:23 AM Note Text: Patient off the floor to OR at this time.[facility]02-02-2022 [facility]02-02-2022 [facility] 06-08-2021 NoteHNO ID: [id number] Author: Eloise Samuel RN Service: ? Author Type: Registered Nurse Type: Nursing Progress Note Filed: 06/08/2021 12:46 AM Note Text: Dr. Brito notified of changes throughout shift. No new orders [facility] time[facility] 06-07-2021 NoteHNO ID: [id number] Author: Eloise Samuel RN Service: ? Author Type: Registered Nurse Type: Nursing Progress Note Filed: 06/07/2021 8:01 PM Note Text: Neuro surg ARABIC PROFESSOR notified of downward deviation of pupils. No new orders at this time.[facility]02-01-2022 [facility]02-01-2022 [facility]02-01-2022 [facility]02-01-2022 [facility]01-31-2022 [facility]01-31-2022 [facility]01-31-2022 Note [facility]01-31-2022 [facility] 06-05-2021 [facility]01-30-2022 [facility]01-30-2022 [facility]01-29-2022 [facility]01-29-2022 NoteHNO ID: [id number] Author: Jermaine Miller PA-C Service: Neurosurgery Author Type: Physician Machine Maintenance Mechanic Type: Plan of Care Filed: 06/04/2021 1:59 PM Note Text: Discussed with Dr. Charles CT brain results. At this time, continue with EVD at 5 [facility]01-29-2022 [facility] 06-04-2021 [facility]01-28-2022 [facility]01-28-2022 NoteHNO ID: [id number] Author: Mauricio Frank DO Service: Neurology ICU Author Type: Physician Type: Plan of Care Filed: 06/03/2021 2:38 PM Note Text: I spoke with Melissa and updated her over the phone. Mauricio Frank, [facility]01-28-2022 [facility]01-28-2022 [facility]01-27-2022 [facility]01-27-2022 [facility]01-27-2022 Note [facility]01-26-2022 [facility] 06-01-2021 [facility]01-26-2022 [facility]01[facility]26-2022 [facility]01-26-2022 [facility]01-25-2022 [facility]01-25-2022 [facility]01-25-2022 [facility]01-25-2022 Note [facility]01-25-2022 [facility] 05-31-2021 [facility] Diagnosis Leg swelling- Primary Swelling of limb Acute deep vein thrombosis (DVT) of proximal vein of lower extremity, unspecified laterality (HCC) DVT, lower extremity, recurrent, unspecified laterality (HCC) Moderate malnutrition (HCC) Malnutrition of moderate degree History of seizures Personal history of other disorders of nervous system and sense organs documented in this encounter [facility] Work Phone: Evaluation noteNo assessment information available [facility] Work Phone: Evaluation note* Diagnosis Other fatigue- Primary [facility] Work [facility]: [facility] note* Diagnosis Heel ulceration, left, with unspecified severity (HCC)- Primary documented [facility] encounter [facility] Work Phone: Evaluation note* Diagnosis Fall, initial encounter- Primary Anticoagulated Encounter for long-term (current) use of anticoagulants documented in this encounter [facility] Work Phone: Evaluation note* Diagnosis Left flank pain- Primary Abdominal pain, unspecified site Calculus of ureter Disease of prostate Unspecified disorder of prostate BPH with urinary obstruction Hypertrophy of prostate with urinary obstruction and other lower urinary tract symptoms (LUTS) documented in this encounter [facility]Evaluation [facility]* Diagnosis Left flank pain Abdominal pain, unspecified site Calculus of ureter documented in this encounter [facility] [place] AIEvaluation note* Diagnosis Left flank pain- Primary Abdominal pain, unspecified site BPH with urinary obstruction Hypertrophy of prostate with urinary obstruction and other lower urinary tract symptoms (LUTS) History of kidney stones documented in this encounter [facility] HealthInstructions* Name Dates Details Instructions not documented [id number] Work Phone: Instructions* Name Dates Details Instructions not documented [id number] [place] Work Phone: Reason for referral (narrative)No reason for referral information availableM[facility] Work Phone: Advance Directives No Advanced Directives Records FoundDocuments on File Type Date Recorded Patient Used Car 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 Expl anation Advance Directives and Living Will Power of Data Security Coordinator Documents on File Type Date Recorded Patient Used Car Manager Expl anation Advance Directive(s) 06/02/2021 2:45 [...] Documents on File Type Date Recorded Patient Used Car Manager Expl anation ACP-Advance Directive ACP-Power of Data Security Coordinator Latest Code Status on File Code Status Date Activated Date Inactivated Comments Full Code 10/21/2021 4:09 AM Healthcare Agents on File Name Relationship Healthcare Agent Relationshi p Communication Melissa Gurpreet Child Primary Decision Maker deann Gurpreet Child Secondary Decision Maker Documents on File Type Date Recorded Patient Used Car Manager Expl anation ACP-Advance Directive ACP-Power of Data Security Coordinator ACP-Do Not Resuscitate 11/01/2021 7:03 AM Latest Code Status on File Code Status Date Activated Date Inactivated Comments Full Code 10/21/2021 4:09 AM 10/29/2021 7:25 PM Healthcare Agents on File Name Relationship Healthcare Agent Relationshi p Communication Melissa Gurpreet Child Primary Decision Maker deann Gurpreet Child Secondary Decision Maker Documents on File Type Date Recorded Patient Used Car Manager Expl anation ACP-Do Not Resuscitate 11/03/2021 10:15 AM ACP-Do Not Resuscitate 11/01/2021 7:03 AM Healthcare Agents on File Name Relationship Healthcare Agent Relationshi p Communication Melissa Gurpreet Child Primary Decision Maker deann Gurpreet Child Secondary Decision Maker Documents on File Type Date Recorded Patient Used Car Manager Expl anation ACP-Do Not Resuscitate 11/03/2021 [...] Documents on File Type Date Recorded Patient Used Car Manager Expl anation DNR (Do Not Resuscitate) 10/31/2021 DNR (Do Not Resuscitate) 10/21/2021 Documents on File Type Date Recorded Patient Used Car Manager Expl anation DNR (Do Not Resuscitate) [...] Urology Diagnoses Other fatigue Lanette Munguia DO [address] [place] [address] [facility] [address] [place] [address] Referral ID Status Reason Start Date Expiration Date V isits Requested Visits Authorized [id number] Open Specialty Services Required 11/01/2021 11/01/2022 1 1 Scheduling Instructions [facility] [place] [address] Specialty Diagnoses / Procedures Referred By Contac t Referred To Contact IP Unit Diagnoses Heel ulceration, left, with unspecified severity (HCC) [place], [place] [address] [place] [address] [facility] [address] [place] [address] Referral ID Status Reason Start Date Expiration Date V isits Requested Visits Authorized [id number] Open Specialty Services Required 12/22/2021 12/22/2022 1 1 Scheduling Instructions [facility] Wound Care/Hyperbaric - [facility] [address] [place] [address] Comments Please use the parking lot located on [address] or [employer]. There are handicap parking spots located in a small lot beside the wound care entrance off of [address]. Please be advised there is a small incline from those handicap spots to our main door. Bring photo ID and insurance card to photocopy. Wear loose fitting clothing (to easily access wound). Bring list of medications (or can be sent by office). Check in at Registration for your first visit. Please call us directly with any questions [phone]. We look forward to helping you heal. Specialty Diagnoses / Procedures Referred By Aki kumari Referred To Contact Radiology Diagnoses Left flank pain Calculus of ureter Procedures CT abdomen pelvis wo IV contrast Rebecca Buck MD [address] [place] [address] Referral ID Status Reason Start Date Expiration Date V isits Requested Visits Authorized [id number] Pending Review 08/13/2023 08/12/2024 1 1 Referral ID Status Reason Start Date Expiration Date Visits Re quested Visits Authorized [id number] Closed 08/17/2023 09/16/2023 1 1 Additional Source Comments Source Comments (unrecognize d section and content) In the event this informatio n is protected by the Federal Confidentiality of Alcohol and Drug Abuse Patient Records regulations: The Federal rules restrict any use of the information to criminally investigate or prosecute any alcohol or drug abuse patient.[facility] the event this information is protected by the Federal Confidentiality of Alcohol and Drug Abuse Patient Records regulations: The Federal rules restrict any use of the information to criminally investigate or prosecute any alcohol or drug abuse patient.[facility] (unrecognized sect ion and content) No Status Records FoundNo Status Records FoundNo Status Records FoundNo Status Records FoundNo Status Records FoundNo Status Records FoundNo Status Records FoundNo Status Records FoundNo Status Records FoundNo Status Records Found INFORMATION SOURCE (unrecogn ized section and content) DATE CREATED AUTHOR 05/20/2021 [facility] DATE CREATED AUTHOR AUTHOR'S ORGANIZ ATION 06/07/2021 [facility] DATE CREATED AUTHOR AUTHOR'S ORGANIZ ATION 08/02/2021 [facility] DATE CREATED AUTHOR AUTHOR'S ORGANIZ ATION 12/09/2021 [facility] DATE CREATED AUTHOR AUTHOR'S ORGANIZ ATION 12/29/2021 [facility] DATE CREATED AUTHOR AUTHOR'S ORGANIZ ATION 02/04/2022 [facility] DATE CREATED AUTHOR AUTHOR'S ORGANIZ ATION 03/03/2022 [facility] DATE CREATED AUTHOR AUTHOR'S ORGANIZ ATION 09/15/2023 [facility] DATE CREATED AUTHOR AUTHOR'S ORGANIZ ATION 03/18/2025 [facility] Reason for Visit (unrecogniz ed section and content) Reason Comments Missed Appointment Reason Comments Leg Swelling Blood clots Reason Comments Altered Mental Status Pt presents to ED via [facility] for complaint listed. Pt is from [facility]. Pt's LKW was 1000 hours today. Per EMS, pt had a - [place]. Pt denies CP, SOB, and N/V. Pt seems slow to respond, slightly confused at this time. Reason Comments Osteomyelitis Patient [facility], facility did xrays on left lower leg and and have concerns for possible osteomyelitis A&Ox2 to self and place, stated year 2022 preside Miss martini Reason Comments Fall Patient had unwitnes sed fall at [facility] landed on butt. Is on thinners, denies [...] Buck MD [address] [place] [address] Referral ID Status Reason Start Date Expiration Date Visits Re quested Visits Authorized [id number] Closed 08/17/2023 09/16/2023 1 1 Reason Comments [...] April 21, 2024 End: April 21, 2024 Carols NOVAK Attending Provider Active Sta rt: April [...] Status Dates Carlos NOVAK Attending Provider Active Hospital Coder Relationship Specialty Start Date End Date Mateus Burris [address] [place] [address] PCP - General Family Practice 11/12/19 Hospital Coder Relationship Specialty [place] [address] [place] [address] PCP - General Family Medicine 09/09/20 Hospital Coder Relationship Specialty [place] [address] [place] [address] PCP - General Family Medicine 09/09/20 Hospital Coder Relationship Specialty [place] [address] [place] [address] PCP - General Family Medicine 09/09/20 Hospital Coder Relationship Specialty Start Date End Date Carlos Cavazos MD [address] [facility] [address] [place] [address] PCP - General Internal Medicine 02/20/22 Team [...] Monika Staley MD Primary Care Provider Active Hospital Coder Relationship Specialty Start Date End Date Carlos Cavazos [address] [place] [phone] PCP - General 12/21/21 Rebecca Buck MD [address] [place] [address] [address] [place] [address] Surgeon Urology 06/25/23 Team Status: Inactive Member [...] OLS Attending Provider, Referring Provi lupillo Active Hospital Coder Relationship Specialty Start Date End Date Carlos Cavazos [address] [place] [phone] PCP - General 12/21/21 Rebecca Buck MD [address] [address] Surgeon Urology 06/25/23 Hospital Coder Relationship Specialty Start Date End Date Carlos Cavazos [address] [place] [phone] PCP - General 12/21/21 Rebecca Buck MD [address] [address] Surgeon Urology 06/25/23 Hospital Coder Relationship Specialty Start Date End Date Carlos Cavazos [address] [place] [phone] PCP - General 12/21/21 Rebecca Buck MD [address] [address] Surgeon Urology 06/25/23 Hospital Coder Relationship Specialty Start Date End Date Carlos Cavazos [address] [place] [phone] PCP - General 12/21/21 Rebecca Buck MD [address] [address] Surgeon Urology 06/25/23 Hospital Coder Relationship Specialty Start Date End Date Carlos Cavazos [address] [place] [phone] PCP - General 12/21/21 Rebecca Buck MD [address] [address] Surgeon Urology 06/25/23 Hospital Coder Relationship Specialty Start Date End Date Carlos Cavazos [address] [place] [address] PCP - General 12/21/21 Rebecca Buck MD [address] [address] Surgeon Urology 06/25/23 Team Status: Inactive Member Role Status Dates Dr. Monika Staley MD Primary Care Provider Active Start: March 13, 2024 End: March 13, 2024 [facility] Attending Provider Active Start: March [...] March 17, 2024 End: March 17, 2024 [facility] Attending Provider Active Start: March 17, 2024 End: March 17, 2024 Team Status: Inactive Member Role Status Dates Dr. Monika Staley MD Primary Care Provider Active Start: March 18, 2024 End: March 18, 2024 [facility] Attending Provider Active Start: March [...] March 20, 2024 End: March 20, 2024 [facility] Attending Provider Active Start: March [...] March 27, 2024 End: March 27, 2024 [facility] Attending Provider Active Start: March [...] Care Provider Active Start: July 07, 2024 [facility] Attending Provider Active Start: July [...] Provider Active Start: July 31, 2024 Karon ONVAK MD Attending Provider Active Start: July 31, [...] 25, 2024 End: August 25, 2024 Karon NOVKA MD Attending Provider Active Start: August 25, [...] Provider: Rosanne Hoff RN)2034 (Given - Provider: Katlni Julio RN) 0816 (Given - Provider: Rosanne [...] mg, Oral, ONCE Warfarin, 1 dose, On [facility] 10/29/21 at 1800, Indication of [...] ON THE PRIMARY CLINICAL RECORDS. [facility]. provides no warranty or guarantee of the accuracy or completeness of information in this document.
[2025-05-02 10:08] LABS: KEPPRA (LEVETIRACETAM) 28.5 ug/mL (10.0-40.0)
== END ==
LOC: OLS.SANC 05:00
PROVIDERS: PCP General Practice; Visit Provider Internal Medicine
DX: Z79.899 Other long term (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 (principal)
CPT/HCPCS: 36415; 80177

== ENCOUNTER → 2025-04-28 05:00 | Outpatient (REF) | payer MEDICAID, SELFPAY ==
--- OUTSIDE RECORDS SUMMARY | 2025-04-28 03:36 | XMS RPT_ITS | CCD ---
Author Organization [facility] Care Team Providers Care Ice Seller Name Role Phone Mateus Burris Primary Care Provider [phone] Monika Staley Unavailable Unavailable Leonor, Maddy L Unavailable Unavailable Update Needed Unavailable Unavailable Mateus Burris Primary Care Provider [phone] Wing Ritter Unavailable Unavailable Monika Staley Unavailable Unavailable Leonor, Maddy Belem Unavailable Unavailable Leonor, Maddy L Unavailable Unavailable Luís Shiela Unavailable Unavailable Unavailable Monika Staley MD Unavailable Unavailable Wing Ritter MD Unavailable Unavailable Luís Shiela Unavailable Unavailable Update Needed Unavailable Unavailable Leonor, Maddy Belem Unavailable Unavailable Mateus Burris Primary Care Provider Monika Staley MD Primary Care Provider Monika Staley MD Primary Care Provider [phone] Carlos Cavazos Primary Care Unavailable Carlos Cavazos Referring Unavailable Cliff Espinoza Attending Unavailable Carlos Cavazos Primary Care Unavailable Carlos Cavazos Referring Unavailable Carlos Cavazos Attending Unavailable Carlos Cavazos Attending Unavailable Carlos Cavazos Primary Care Unavailable Carlos Cavazos Referring Unavailable PROVIDER, UNKNOWN Referring Unavailable Mateus Burris Primary Care Unavailable Karon Corrales Attending Unavailable aCrlos Cavazos MD Primary Care Provider PROVIDER, UNKNOWN [...] VALLADARES, Dr. Monika Horner Primary Care Provider [facility] Attending Provider [phone] Carlos Nelson Attending Provider Jonh Pascual MD, [...] Lusí, Shiela Primary Care Unavailable Crisostomo OLS, Elizabethet [...] OLS, Mahaveer Attending Unavail able [facility] [place] Attending Unavai lable Luís, Shiela Primary Care Unavailable Crisostomo OLS, Babbaljeet Attending Unavailable Luís, Shiela Primary Care Unavailable [facility] [place] Attending Unavai lable Luís, Shiela Primary Care [...] Unavailable MukkKaron Hoover Attending Unavail able Luís, [facility] Primary Care Unavailable NubiaKaron Stacy Attending Unavail able Luís, Shiela Primary Care Unavailable NubiaKaron Stacy Attending Unavail able Luís, [facility] Primary Care Unavailable MaribelCarlos Flood Attending Unavailable [place], [facility] Unavailable Allergies Allergy Classification Reported Allergen(s) Allergy Type Date of Onset Reaction(s) Facility (13 sources) [facility] Drug [facility] Work Phone: (15 sources) Alcohol Propensity to adverse reactions to drug 3 Rash, Hives, Other: See Comments, Other [facility] Work Phone: (1 source) Latex Drug Allergy 0 Rash [facility] (8 sources) Cortisone Drug Allergy 2 [facility] (7 sources) Latex Allergy to substance 0 Rash [facility] Medications Current Medications Medication Drug Class(es) Dates Sig (Normalized) Sig (Original) Acetaminophen (10 sources) Start: 10-21-2021 acetaminophen (TYLENOL) tablet 650 mg Start: 09-14-2021 acetaminophen (TYLENOL) 325 MG tablet 650 mg every 6 hours as needed 0 09/14/2021 Active take 2 tablets by [facility] every eight hours acetaminophen (TYLENOL) [...] Start: 11-01-2021 take 1 capsule by mo [facility] once daily tamsulosin (FLOMAX) 0.4 MG capsule [...] Comment on above: [facility]. Antacid TABS (6 [...] Comment on above: Take 1 capsule by [facility] three times daily. Complete Multi-Vitamin [...] Units subcutaneously with meals and at bedtime. Icelandic Panax Ginseng 100 MG CAPS (8 sources) Icelandic Panax Ginseng 100 MG CAPS Quantity: 0 Refills: 0 Ordered: 06-Nov-2019 DO Active Icelandic Panax Ginseng 100 MG Oral Capsule (4 sources) Icelandic Panax Ginseng 100 MG Oral Capsule Refills: 0 Active Icelandic Panax Gin mayuri 100 MG Oral Capsule Refills: 0 DO Active Icelandic Panax Ginseng 100 MG Oral Capsule (2 sources) Icelandic Panax Gin mayuri 100 MG Oral Capsule [...] once daily. 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 0 Active Comment on above: Take by mouth. petrolatum 0.41 mg/mg topical ointment (1 source) Start : 08-20 white petrolatum (AQUAPHOR) 41 % topical ointment Apply to affected area once daily. 0 08/20/2021 Active Comment on above: Apply to affected ar ea once daily. polyethylene glycol 3350 92961 mg powder for oral solution (1 source) [...] sources) [facility] (current) use of anticoagulants; Translations: [terminal system operator (current) use of anticoagulants] Onset: 10-21-2021 Episodic Other aftercare (1 source) Drug therapy finding; Translations: [terminal system operator (current) use of anticoagulants] Episodic Other aftercare (2 sources) Other long term care pharmacist (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; Translations: [Other intermediate (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] Onset: 06-02-2024 Episodic Other [...] Coag (PPP) [Relative time] 2.2 {INR} Normal [facility] Comment on above: Order Comment: 411-2 Performed By: #### L 300.3900 ####[facility] [address] [place], [address] PT Coag (PPP) [Time] 25.1 s High 11.7-14.9 [facility] Comment on above: Order Comment: 411-2 Performed By: #### L 300.3900 ####[facility] [address] [place], [address] Prothrombin Time w/INRon INR Coag (PPP) [Relative time] 2.3 {INR} Normal [facility] Comment on above: Order Comment: 411-2 Performed By: #### L 300.3900 ####[facility] [address] [place], [address] PT Coag (PPP) [Time] 25.5 s High 11.7-14.9 [facility] Comment on above: Order Comment: 411-2 Performed By: #### L 300.3900 ####[facility] [address] [place], [address] Prothrombin Time w/INRon INR Coag (PPP) [Relative time] 2.0 {INR} Normal [facility] Comment on above: Order Comment: 411.2 Performed By: #### L 300.3900 ####[facility] [address] [place], [address] PT Coag (PPP) [Time] 22.8 s High 11.7-14.9 [facility] Comment on above: Order Comment: 411.2 Performed By: #### L 300.3900 ####[facility] [address] [place], [address] Prothrombin Time w/INRon INR Coag (PPP) [Relative time] 1.7 {INR} Normal [facility] Comment on above: Order Comment: 411-2 Performed By: #### L 300.3900 ####[facility] [address] [place], [address] PT Coag (PPP) [Time] 20.5 s High 11.7-14.9 [facility] Comment on above: Order Comment: 411-2 Performed By: #### L 300.3900 ####[facility] [address] [place], [address] Prothrombin Time w/INRon INR Coag (PPP) [Relative time] 1.5 {INR} Normal [facility] Comment on above: Order Comment: 411.2 Performed By: #### L 300.3900 ####[facility] [address] [place], [address] PT Coag (PPP) [Time] 18.4 s High 11.7-14.9 [facility] Comment on above: Order Comment: 411.2 Performed By: #### L 300.3900 ####[facility] [address] [place], [address] Prothrombin Time w/INRon INR Coag (PPP) [Relative time] 1.8 {INR} Normal [facility] Comment on above: Order Comment: 411.2 Performed By: #### L 300.3900 ####[facility] [address] [place], [address] PT Coag (PPP) [Time] 21.2 s High 11.7-14.9 [facility] Comment on above: Order Comment: 411.2 Performed By: #### L 300.3900 ####[facility] [address] [place], [place], [phone] International normalized rat io (INR) calculationOrdered By: Carlos Cavazos on 03-02-2025 INR Coag (Bld) [Relative time] 2.2 {INR} [facility] Prothrombin Time w/INRon INR Coag (PPP) [Relative time] 2.2 {INR} Normal [facility] Comment on above: Order Comment: 411-2 Performed By: #### L 300.3900 ####[facility] [address] [place], [place], [phone] Prothrombin timeOrdered By: Carlos Cavazos on 03-02-2025 PT Coag (PPP) [Time] 25.3 s High 11.7-14.9 [facility] Comment on above: Order Comment: 411-2 Performed By: #### L 300.3900 ####[facility] [address] [place], [place], [phone] International normalized rat io (INR) calculationOrdered By: Karon Corrales on 02-26-2025 INR Coag (Bld) [Relative time] 2.2 {INR} [facility] Prothrombin Time w/INRon INR Coag (PPP) [Relative time] 2.2 {INR} Normal [facility] Comment on above: Order Comment: 411.2 Performed By: #### L 300.3900 ####[facility] [address] [place], [address] PT Coag (PPP) [Time] 24.5 s High 11.7-14.9 [facility] Comment on above: Order Comment: 411.2 Performed By: #### L 300.3900 ####[facility] [address] [place], [place], [phone] Prothrombin timeOrdered By: Karon Corrales on 02-26-2025 PT Coag (PPP) [Time] 24.5 s High 11.7-14.9 [facility] International normalized rat io (INR) calculationOrdered By: Karon Corrales on 02-23-2025 INR Coag (Bld) [Relative time] 2.0 {INR} [facility] Prothrombin Time w/INRon INR Coag (PPP) [Relative time] 2.0 {INR} Normal [facility] Comment on above: Order Comment: 411.2 Performed By: #### L 300.3900 ####[facility] [address] [place], [place], [phone] PT Coag (PPP) [Time] 23.5 s High 11.7-14.9 [facility] Comment on above: Order Comment: 411.2 Performed By: #### L 300.3900 ####[facility] [address] [place], [place], [phone] Prothrombin timeOrdered By: Karon Corrales on 02-23-2025 PT Coag (PPP) [Time] 23.5 s High 11.7-14.9 [facility] International normalized rat io (INR) calculationOrdered By: Karon Corrales on 02-19-2025 INR Coag (Bld) [Relative time] 1.9 {INR} [facility] Prothrombin Time w/INRon INR Coag (PPP) [Relative time] 1.9 {INR} Normal [facility] Comment on above: Order Comment: 411.2 Performed By: #### L 300.3900 ####[facility] [address] [place], [address]) PT Coag (PPP) [Time] 21.8 s High 11.7-14.9 [facility] Comment on above: Order Comment: 411.2 Performed By: #### L 300.3900 ####[facility] [address] [place], [place], [address] Prothrombin timeOrdered By: Karon Corrales on 02-19-2025 PT Coag (PPP) [Time] 21.8 s High 11.7-14.9 [facility] International normalized rat io (INR) calculationOrdered By: Karon Corrales on 02-16-2025 INR Coag (Bld) [Relative time] 1.5 {INR} [facility] Prothrombin Time w/INRon INR Coag (PPP) [Relative time] 1.5 {INR} Normal [facility] Comment on above: Order Comment: 411.2 Performed By: #### L 300.3900 ####[facility] [address] [place], [place], [phone] PT Coag (PPP) [Time] 18.6 s High 11.7-14.9 [facility] Comment on above: Order Comment: 411.2 Performed By: #### L 300.3900 ####[facility] [address] [place], [place], [address] Prothrombin timeOrdered By: Karon Corrales on 02-16-2025 PT Coag (PPP) [Time] 18.6 s High 11.7-14.9 [facility] International normalized rat io (INR) calculationOrdered By: Karon Corrales on 02-12-2025 INR Coag (Bld) [Relative time] 2.5 {INR} [facility] Prothrombin Time w/INRon INR Coag (PPP) [Relative time] 2.5 {INR} Normal [facility] Comment on above: Order Comment: 411.2 Performed By: #### L 300.3900 ####[facility] [address] [place], [address] PT Coag (PPP) [Time] 27.5 s High 11.7-14.9 [facility] Comment on above: Order Comment: 411.2 Performed By: #### L 300.3900 ####[facility] [address] [place], [address] Prothrombin timeOrdered By: Karon Corrales on 02-12-2025 PT Coag (PPP) [Time] 27.5 s High 11.7-14.9 [facility] International normalized rat io (INR) calculationOrdered By: Carlos Cavazos on 02-09-2025 INR Coag (Bld) [Relative time] 2.5 {INR} [facility] Prothrombin Time w/INRon INR Coag (PPP) [Relative time] 2.5 {INR} Normal [facility] Comment on above: Order Comment: 411-2 Performed By: #### L 300.3900 ####[facility] [address] [place], [address] INR Normal [facility] Comment on above: Order Comment: 411.2 Result Comment: MISS ING TUBE Performed By: #### L 300.3900 ####[facility] [address] [place], [address] PROTIME Normal 11.7-14.9 [facility] Comment on above: Order Comment: 411.2 Result Comment: MISS ING TUBE Performed By: #### L 300.3900 ####[facility] [address] [place], [address] Prothrombin timeOrdered By: Carlos Cavazos on 02-09-2025 PT Coag (PPP) [Time] 27.2 s High 11.7-14.9 [facility] Comment on above: Order Comment: 411-2 Performed By: #### L 300.3900 ####[facility] [address] [place], [address] International normalized rat io (INR) calculationOrdered By: Karon Corrales on 02-05-2025 INR Coag (Bld) [Relative time] 2.5 {INR} [facility] Prothrombin Time w/INRon INR Coag (PPP) [Relative time] 2.5 {INR} Normal [facility] Comment on above: Order Comment: 411.2 Performed By: #### L 300.3900 ####[facility] [address] [place], [address] PT Coag (PPP) [Time] 27.6 s High 11.7-14.9 [facility] Comment on above: Order Comment: 411.2 Performed By: #### L 300.3900 ####[facility] [address] [place], [place], [phone] Prothrombin timeOrdered By: Karon Corrales on 02-05-2025 PT Coag (PPP) [Time] 27.6 s High 11.7-14.9 [facility] International normalized rat io (INR) calculationOrdered By: Karon Corrales on 02-02-2025 INR Coag (Bld) [Relative time] 2.4 {INR} [facility] Prothrombin Time w/INRon INR Coag (PPP) [Relative time] 2.4 {INR} Normal [facility] Comment on above: Order Comment: 411.2 Performed By: #### L 300.3900 ####[facility] [address] [place], [address] PT Coag (PPP) [Time] 26.8 s High 11.7-14.9 [facility] Comment on above: Order Comment: 411.2 Performed By: #### L 300.3900 ####[facility] [address] [place], [place], [phone] Prothrombin timeOrdered By: Karon Corrales on 02-02-2025 PT Coag (PPP) [Time] 26.8 s High 11.7-14.9 [facility] International normalized rat io (INR) calculationOrdered By: Karon Corrales on 01-29-2025 INR Coag (Bld) [Relative time] 2.7 {INR} [facility] Prothrombin Time w/INRon INR Coag (PPP) [Relative time] 2.7 {INR} Normal [facility] Comment on above: Performed By: #### L 300.3900 ####[facility] [address] [place], [place], [phone]) PT Coag (PPP) [Time] 29.1 s High 11.7-14.9 [facility] Comment on above: Performed By: #### L 300.3900 ####[facility] [address] [place], [place], [phone]) Prothrombin timeOrdered By: Karon Corrales on 01-29-2025 PT Coag (PPP) [Time] 29.1 s High 11.7-14.9 [facility] International normalized rat io (INR) calculationOrdered By: Karon Corrales on 01-26-2025 INR Coag (Bld) [Relative time] 2.0 {INR} [facility] Prothrombin Time w/INRon INR Coag (PPP) [Relative time] 2.0 {INR} Normal [facility] Comment on above: Order Comment: 411.2 Performed By: #### L 300.3900 ####[facility] [address] [place], [place], [phone]) PT Coag (PPP) [Time] 23.1 s High 11.7-14.9 [facility] Comment on above: Order Comment: 411.2 Performed By: #### L 300.3900 ####[facility] [address] [place], [place], [phone]) Prothrombin timeOrdered By: Karon Corrales on 01-26-2025 PT Coag (PPP) [Time] 23.1 s High 11.7-14.9 [facility] International normalized rat io (INR) calculationOrdered By: Karon oCrrales on 01-22-2025 INR Coag (Bld) [Relative time] 2.4 {INR} [facility] Prothrombin Time w/INRon INR Coag (PPP) [Relative time] 2.4 {INR} Normal [facility] Comment on above: Order Comment: 411.2 Performed By: #### L 300.3900 ####[facility] [address] [place], [address] PT Coag (PPP) [Time] 26.6 s High 11.7-14.9 [facility] Comment on above: Order Comment: 411.2 Performed By: #### L 300.3900 ####[facility] [address] [place], [address] Prothrombin timeOrdered By: Karon Corrales on 01-22-2025 PT Coag (PPP) [Time] 26.6 s High 11.7-14.9 [facility] International normalized rat io (INR) calculationOrdered By: Carlos Cavazos on 01-19-2025 INR Coag (Bld) [Relative time] 2.7 {INR} [facility] Prothrombin Time w/INRon INR Coag (PPP) [Relative time] 2.7 {INR} Normal [facility] Comment on above: Order Comment: 411-2 Performed By: #### L 300.3900 ####[facility] [address] [place], [address] PT Coag (PPP) [Time] 29.7 s High 11.7-14.9 [facility] Comment on above: Order Comment: 411-2 Performed By: #### L 300.3900 ####[facility] [address] [place], [address] Prothrombin timeOrdered By: Carlos Cavazos on 01-19-2025 PT Coag (PPP) [Time] 29.7 s High 11.7-14.9 [facility] International normalized rat io (INR) calculationOrdered By: Karon Corrales on 01-15-2025 INR Coag (Bld) [Relative time] 2.4 {INR} [facility] Prothrombin Time w/INRon INR Coag (PPP) [Relative time] 2.4 {INR} Normal [facility] Comment on above: Order Comment: 411.1 Performed By: #### L 300.3900 ####[facility] [address] [place], [place], [phone] PT Coag (PPP) [Time] 26.6 s High 11.7-14.9 [facility] Comment on above: Order Comment: 411.1 Performed By: #### L 300.3900 ####[facility] [address] [place], [place], [address] Prothrombin timeOrdered By: Karon Corrales on 01-15-2025 PT Coag (PPP) [Time] 26.6 s High 11.7-14.9 [facility] KEPPRA (LEVETIRACETAM)on KEPPRA 30.1 ug/mL Normal 10.0-40.0 [facility] Comment on above: Order Comment: 411.1 Result Comment: Perf ormed at: [facility] [address] [id number] Director: Alpesh Vázquez MD, Phone: [phone] Performed By: #### L 8480.0000, A726.8201 ####[facility] [address] [place], [place], [phone] International normalized rat io (INR) calculationOrdered By: Karon Corrales on 01-12-2025 INR Coag (Bld) [Relative time] 2.3 {INR} [facility] LevetiracetamOrdered By: Carla Corrales on 01-12-2025 levETIRAcetam [Mass/Vol] 30.1 ug/mL 10.0-40.0 [facility] Comment on above: Performed at: - [facility] [address] [id number] Director: Alpesh Vázquez MD, Phone: [phone] Prothrombin Time w/INRon INR Coag (PPP) [Relative time] 2.3 {INR} Normal [facility] Comment on above: Order Comment: 411.1 Performed By: #### L 3310.0000, L300.3900 ####[facility] [address] [place], [address] PT Coag (PPP) [Time] 26.1 s High 11.7-14.9 [facility] Comment on above: Order Comment: 411.1 Performed By: #### L 3310.0000, L300.3900 ####[facility] [address] [place], [address] Prothrombin timeOrdered By: Karon Corrales on 01-12-2025 PT Coag (PPP) [Time] 26.1 s High 11.7-14.9 [facility] KEPPRA (LEVETIRACETAM)on KEPPRA 27.6 ug/mL Normal 10.0-40.0 [facility] Comment on above: Order Comment: 411.1 Result Comment: Perf ormed at: - [facility] [address] [id number] Director: Alpesh Vázquez MD, Phone: [phone] Performed By: #### L 3310.0000, L300.3900 ####[facility] [address] [place], [address] International normalized rat io (INR) calculationOrdered By: Karon Corrales on 01-08-2025 INR Coag (Bld) [Relative time] 2.2 {INR} [facility] Prothrombin Time w/INRon INR Coag (PPP) [Relative time] 2.2 {INR} Normal [facility] Comment on above: Order Comment: 411.1 Performed By: #### L 300.3900 ####[facility] [address] [place], [address] PT Coag (PPP) [Time] 24.5 s High 11.7-14.9 [facility] Comment on above: Order Comment: 411.1 Performed By: #### L 300.3900 ####[facility] [address] [place], [address] Prothrombin timeOrdered By: Karon Corrales on 01-08-2025 PT Coag (PPP) [Time] 24.5 s High 11.7-14.9 [facility] International normalized rat io (INR) calculationOrdered By: Karon Corrales on 01-06-2025 INR Coag (Bld) [Relative time] 3.2 {INR} [facility] LevetiracetamOrdered By: Carla Corrales on 01-06-2025 levETIRAcetam [Mass/Vol] 27.6 ug/mL 10.0-40.0 [facility] Comment on above: Performed at: [address] [id number] Director: Alpesh Vázquez MD, Phone: [phone] Prothrombin Time w/INRon INR Coag (PPP) [Relative time] 3.2 {INR} Normal [facility] Comment on above: Order Comment: 411.1 Performed By: #### L 3310.0000, L300.3900 ####[facility] [address] [place], [address] PT Coag (PPP) [Time] 33.1 s High 11.7-14.9 [facility] Comment on above: Order Comment: 411.1 Performed By: #### L 3310.0000, L300.3900 ####[facility] [address] [place], [place], [phone] Prothrombin timeOrdered By: Karon Corrales on 01-06-2025 PT Coag (PPP) [Time] 33.1 s High 11.7-14.9 [facility] International normalized rat io (INR) calculationOrdered By: Karon Corrales on 01-01-2025 INR Coag (Bld) [Relative time] 2.7 {INR} [facility] Prothrombin Time w/INRon INR Coag (PPP) [Relative time] 2.7 {INR} Normal [facility] Comment on above: Order Comment: 411.1 Performed By: #### L [id number] ####[facility] [address] [place], [place], [id number] Prothrombin timeOrdered By: Karon Corrales on 01-01-2025 PT Coag (PPP) [Time] 29.1 s High 11.7-14.9 [facility] Comment on above: Order Comment: 411.1 Performed By: #### L [id number] ####[facility] [address] [place], [place], [id number] KEPPRA (LEVETIRACETAM)on KEPPRA 31.8 ug/mL Normal 10.0-40.0 [facility] Comment on above: Order Comment: 411-1 Result Comment: [facility]med [facility]: [facility] [place], [place] [id number] Director: Alpesh Vázquez MD, Phone: [phone] Performed By: #### L 3310.0000, L368.2532 ####[facility] [address] [place], [place], [address] International normalized rat io (INR) calculationOrdered By: Carlos Cavazos on 12-29-2024 INR Coag (Bld) [Relative time] 3.3 {INR} [facility] KEPPRA (LEVETIRACETAM)on KEPPRA 33.3 ug/mL Normal 10.0-40.0 [facility] Comment on above: Order Comment: 411.1 Result Comment: Perf ormed at: Issue - [facility] [address] [id number] Director: Alpesh Vázquez MD, Phone: [phone] Performed By: #### L 3310.0000 ####[facility] [address] [facility] [address] LevetiracetamOrdered By: Ted Cavazos on 12-29-2024 levETIRAcetam [Mass/Vol] 31.8 ug/mL 10.0-40.0 [facility] Comment on above: Performed at: [facility] [address] [id number] Director: Alpesh Vázquez MD, Phone: [phone] Prothrombin Time w/INRon INR Coag (PPP) [Relative time] 3.3 {INR} Normal [facility] Comment on above: Order Comment: 411-1 Performed By: #### L 3310.0000, L300.3900 ####[facility] [address] [place], [address] Prothrombin timeOrdered By: Carlos Cavazos on 12-29-2024 PT Coag (PPP) [Time] 34.0 s High 11.7-14.9 [facility] Comment on above: Order Comment: 411-1 Performed By: #### L 3310.0000, L300.3900 ####[facility] [address] [place], [place], [id number] LevetiracetamOrdered By: Carla Corrales on 12-26-2024 levETIRAcetam [Mass/Vol] 33.3 ug/mL 10.0-40.0 [facility] Comment on above: Performed at: [address] [address], [place] [id number] Director: Alpesh Vázquez MD, Phone: [phone] International normalized rat io (INR) calculationOrdered By: Karon Corrales on 12-25-2024 INR Coag (Bld) [Relative time] 2.8 {INR} [facility] Prothrombin Time w/INRon INR Coag (PPP) [Relative time] 2.8 {INR} Normal [facility] Comment on above: Order Comment: 411.1 Performed By: #### L 300.3900 ####[facility] [address] [place], [address] Prothrombin timeOrdered By: Karon Corrales on 12-25-2024 PT Coag (PPP) [Time] 30.0 s High 11.7-14.9 [facility] Comment on above: Order Comment: 411.1 Performed By: #### L 300.3900 ####[facility] [address] [place], [address] Anion gap in Serum or Plasma Ordered By: Carlos Cavazos on 12-24-2024 Anion gap [Moles/Vol] 13 mmol/L 09-18 [facility] BUN/creatinine ratioOrdered By: Carlos Cavazos on 12-24-2024 Urea nitrogen/Creatinine [Mass ratio] 19.2 mg/mg 02-23 [facility] Basic Metabolic Profile (BMP )on 12-24-2024 BUN/CRE 19.2 RATIO Normal 02-23 [facility] Comment on above: Order Comment: 411-1 Performed By: #### L 500.2500, L100.0500 ####[facility] [address] [place], [address] Calcium [Mass/Vol] 8.8 mg/dL Normal 7.6-11.0 [facility] Comment on above: Order Comment: 411-1 Performed By: #### L 500.2500, L100.0500 ####[facility] [address] [place], [address] Chloride [Moles/Vol] 103 mmol/L Normal 98-108 [facility] Comment on above: Order Comment: 411-1 Performed By: #### L 500.2500, L100.0500 ####[facility] [address] [place], [address] CO2 [Moles/Vol] 23.7 mmol/L Normal 21.0-32.0 [facility] Comment on above: Order Comment: 411-1 Performed By: #### L 500.2500, L100.0500 ####[facility] [address] [place], [address] Creatinine [Mass/Vol] 0.82 mg/dL Normal 0.70-1.20 [facility] Comment on above: Order Comment: 411-1 Performed By: #### L 500.2500, L100.0500 ####[facility] [address] [place], [address] GAP 13 Normal 5-15 [facility] Comment on above: Order Comment: 411-1 Performed By: #### L 500.2500, L100.0500 ####[facility] [address] [place], [address] GFR/1.73 sq M.predicted among non-blacks MDRD (S/P/Bld) [Vol rate/Area] 93 mL/min/{1.73_m2} Normal >60 [facility] Comment on above: Order Comment: 411-1 Result Comment: mL/m in/1.73m2 CKD-EPI Creatinine Equation (2020) Performed By: #### L 500.2500, L100.0500 ####[facility] [address] [place], [address] Glucose [Mass/Vol] 88 mg/dL Normal 70-99 [facility] Comment on above: Order Comment: 411-1 Performed By: #### L 500.2500, L100.0500 ####[facility] [address] [place], [address] Potassium [Moles/Vol] 4.2 mmol/L Normal 3.3-5.1 [facility] Comment on above: Order Comment: 411-1 Performed By: #### L 500.2500, L100.0500 ####[facility] [address] [place], [address] Sodium [Moles/Vol] 139 mmol/L Normal 133-145 [facility] Comment on above: Order Comment: 411-1 Performed By: #### L 500.2500, L100.0500 ####[facility] [address] [place], [address] Urea nitrogen [Mass/Vol] 16 mg/dL Normal 4-19 [facility] Comment on above: Order Comment: 411-1 Performed By: #### L 500.2500, L100.0500 ####[facility] [address] [place], [address] CBC-Complete Blood Cnt No Di ffon 12-24-2024 Erythrocyte distribution width (RBC) [Ratio] 15.4 % High 11.6-14.6 [facility] Comment on above: Order Comment: 411-1 Performed By: #### L 500.2500, L100.0500 ####[facility] [address] [place], [address] Hematocrit (Bld) [Volume fraction] 39.8 % Low 40-54 [facility] Comment on above: Order Comment: 411-1 Performed By: #### L 500.2500, L100.0500 ####[facility] [address] [place], [address] Hemoglobin (Bld) [Mass/Vol] 12.4 g/dL Low 13.0-16.5 [facility] Comment on above: Order Comment: 411-1 Performed By: #### L 500.2500, L100.0500 ####[facility] [address] [place], [address] MCH (RBC) [Entitic mass] 26.6 pg Low 27.0-32.0 [facility] Comment on above: Order Comment: 411-1 Performed By: #### L 500.2500, L100.0500 ####[facility] [address] [place], [address] MCHC (RBC) [Mass/Vol] 31.2 g/dL Low 32-36 [facility] Comment on above: Order Comment: 411-1 Performed By: #### L 500.2500, L100.0500 ####[facility] [address] [place], [address] MCV (RBC) [Entitic vol] 85.4 fL Normal 80-94 [facility] Comment on above: Order Comment: 411-1 Performed By: #### L 500.2500, L100.0500 ####[facility] [address] [place], [address] Platelet mean volume (Bld) [Entitic vol] 10.4 fL Normal 6.2-12.0 [facility] Comment on above: Order Comment: 411-1 Performed By: #### L 500.2500, L100.0500 ####[facility] [address] [place], [address] Platelets (Bld) [#/Vol] 290 10*3/uL Normal 150-450 [facility] Comment on above: Order Comment: 411-1 Performed By: #### L 500.2500, L100.0500 ####[facility] [address] [place], [address] RBC (Bld) [#/Vol] 4.66 10*6/uL Normal 4.6-6.2 [facility] Comment on above: Order Comment: 411-1 Performed By: #### L 500.2500, L100.0500 ####[facility] [address] [place], [address] RDW SD 48.1 fl High 35.1-43.9 [facility] Comment on above: Order Comment: 411-1 Performed By: #### L 500.2500, L100.0500 ####[facility] [address] [place], [address] WBC (Bld) [#/Vol] 16.6 10*3/uL High 4.4-11.0 [facility] Comment on above: Order Comment: 411-1 Performed By: #### L 500.2500, L100.0500 ####[facility] [address] [place], [address] Carbon dioxide, total [Moles /volume] in Central venous bloodOrdered By: Carlos Cavazos on 12-24-2024 CO2 [Moles/Vol] 23.7 mmol/L 21.0-32.0 [facility] Chloride assayOrdered By: Sharif Crouch on 12-24-2024 Chloride [Moles/Vol] 103 mmol/L 98-108 [facility] Erythrocyte distribution wid th ratioOrdered By: Carlos Cavazos on 12-24-2024 Erythrocyte distribution width (RBC) [Ratio] 15.4 % High 11.6-14.6 [facility] Erythrocyte distribution wid th standard deviationOrdered By: Carlos Cavazos on 12-24-2024 Erythrocyte distribution width (RBC) [Ratio] 48.1 fl High 35.1-43.9 [facility] Glomerular filtration rate ( GFR) estimation/1.73 sq m using serum, plasma, or whole bOrdered By: Carlos Cavazos on 12-24-2024 GFR/1.73 sq M.predicted among non-blacks MDRD (S/P/Bld) [Vol rate/Area] 93 mL/min/{1.73_m2} >60 [facility] Comment on above: mL/min/1.73m2 CKD-EP I Creatinine Equation (2020) Hematocrit Auto (Bld) [Volum e fraction]Ordered By: Carlos Cavazos on 12-24-2024 Hematocrit (Bld) [Volume fraction] 39.8 % Low 40-54 [facility] Hemoglobin measurementOrdere d By: Carlos Cavazos on 12-24-2024 Hemoglobin (Bld) [Mass/Vol] 12.4 g/dL Low 13.0-16.5 [facility] MCV (mean corpuscular volume ) determinationOrdered By: Carlos Cavazos on 12-24-2024 MCV (RBC) [Entitic vol] 85.4 fL 80-94 [facility] Mean corpuscular hemoglobin (MCH) determinationOrdered By: Carlos Cavazos on 12-24-2024 MCH (RBC) [Entitic mass] 26.6 pg Low 27.0-32.0 [facility] Mean corpuscular hemoglobin concentration (MCHC) determinationOrdered By: Carlos Cavazos on 12-24-2024 MCHC (RBC) [Mass/Vol] 31.2 g/dL Low 32-36 [facility] Mean platelet volume determi nationOrdered By: Carlos Cavazos on 12-24-2024 Platelet mean volume (Bld) [Entitic vol] 10.4 fL 6.2-12.0 [facility] Platelet countOrdered By: Sharif Crouch on 12-24-2024 Platelets (Bld) [#/Vol] 290 10*3/uL 150-450 [facility] Potassium measurement (mass/ volume)Ordered By: Carlos Cavazos on 12-24-2024 Potassium (Unsp spec) [Mass/Vol] 4.2 mmol/L 3.3-5.1 [facility] RBC Auto (Bld) [#/Vol]Ordere d By: Carlos Cavazos on 12-24-2024 RBC (Bld) [#/Vol] 4.66 10*6/uL 4.6-6.2 [facility] Serum creatinine measurement (mass/volume)Ordered By: Carlos Cavazos on 12-24-2024 Creatinine [Mass/Vol] 0.82 mg/dL 0.70-1.20 [facility] Serum glucose measurement (m ass/volume)Ordered By: Carlos Cavazos on 12-24-2024 Glucose [Mass/Vol] 88 mg/dL 70-99 [facility] Serum or plasma calcium oral urement (mass/volume)Ordered By: Carlos Cavazos on 12-24-2024 Calcium [Mass/Vol] 8.8 mg/dL 7.6-11.0 [facility] Serum or plasma urea nitroge n measurement (mass/volume)Ordered By: Carlos Cavazos on 12-24-2024 Urea nitrogen [Mass/Vol] 16 mg/dL 4-19 [facility] Sodium levelOrdered By: Moe Cavazos on 12-24-2024 Sodium [Moles/Vol] 139 mmol/L 133-145 [facility] White blood cell (WBC) count Ordered By: Carlos Cavazos on 12-24-2024 WBC (Bld) [#/Vol] 16.6 10*3/uL High 4.4-11.0 [facility] International normalized rat io (INR) calculationOrdered By: Karon Corrales on 12-22-2024 INR Coag (Bld) [Relative time] 2.6 {INR} [facility] Prothrombin Time w/INRon INR Coag (PPP) [Relative time] 2.6 {INR} Normal [facility] Comment on above: Order Comment: 411.1 Performed By: #### L 300.5993 ####[facility] [address] [facility]. [place], [place], [phone] PT Coag (PPP) [Time] 28.8 s High 11.7-14.9 [facility] Comment on above: Order Comment: 411.1 Performed By: #### L 300.3900 ####[facility] [address] [facility]. [place], [place], [phone] Prothrombin timeOrdered By: Karon Corrales on 12-22-2024 PT Coag (PPP) [Time] 28.8 s High 11.7-14.9 [facility] International normalized rat io (INR) calculationOrdered By: Karon Corrales on 12-18-2024 INR Coag (Bld) [Relative time] 2.4 {INR} [facility] Prothrombin Time w/INRon INR Coag (PPP) [Relative time] 2.4 {INR} Normal [facility] Comment on above: Order Comment: 411.1 Performed By: #### L 300.3900 ####[facility] [address] [place], [place], [phone] PT Coag (PPP) [Time] 26.7 s High 11.7-14.9 [facility] Comment on above: Order Comment: 411.1 Performed By: #### L 300.3900 ####[facility] [address] [place], [place], [phone] Prothrombin timeOrdered By: Karon Corrales on 12-18-2024 PT Coag (PPP) [Time] 26.7 s High 11.7-14.9 [facility] International normalized rat io (INR) calculationOrdered By: Karon Corrales on 12-15-2024 INR Coag (Bld) [Relative time] 2.3 {INR} [facility] Prothrombin Time w/INRon INR Coag (PPP) [Relative time] 2.3 {INR} Normal [facility] Comment on above: Order Comment: 411.1 Performed By: #### L 300.3900 ####[facility] [address] [place], [place], [phone] Prothrombin timeOrdered By: Karon Corrales on 12-15-2024 PT Coag (PPP) [Time] 25.7 s High 11.7-14.9 [facility] Comment on above: Order Comment: 411.1 Performed By: #### L 300.3900 ####[facility] [address] [place], [place], [phone] International normalized rat io (INR) calculationOrdered By: Carlos Cavazos on 12-11-2024 INR Coag (Bld) [Relative time] 2.2 {INR} [facility] Prothrombin Time w/INRon INR Coag (PPP) [Relative time] 2.2 {INR} Normal [facility] Comment on above: Order Comment: 411-1 Performed By: #### L 300.3900 ####[facility] [address] [place], [address] Prothrombin timeOrdered By: Carlos Cavazos on 12-11-2024 PT Coag (PPP) [Time] 24.7 s High 11.7-14.9 [facility] Comment on above: Order Comment: 411-1 Performed By: #### L 300.3900 ####[facility] [address] [place], [place], [phone] International normalized rat io (INR) calculationOrdered By: Karon Corrales on 12-08-2024 INR Coag (Bld) [Relative time] 2.2 {INR} [facility] Prothrombin Time w/INRon INR Coag (PPP) [Relative time] 2.2 {INR} Normal [facility] Comment on above: Order Comment: 411.1 Performed By: #### L 300.3900 ####[facility] [address] [place], [address] PT Coag (PPP) [Time] 25.0 s High 11.7-14.9 [facility] Comment on above: Order Comment: 411.1 Performed By: #### L 300.3900 ####[facility] [address] [place], [place], [phone] Prothrombin timeOrdered By: Karon Corrales on 12-08-2024 PT Coag (PPP) [Time] 25.0 s High 11.7-14.9 [facility] International normalized rat io (INR) calculationOrdered By: Karon Corrales on 12-04-2024 INR Coag (Bld) [Relative time] 2.3 {INR} [facility] Prothrombin Time w/INRon INR Coag (PPP) [Relative time] 2.3 {INR} Normal [facility] Comment on above: Order Comment: 411.1 Performed By: #### L 300.3900 ####[facility] [address] [place], [address] PT Coag (PPP) [Time] 25.9 s High 11.7-14.9 [facility] Comment on above: Order Comment: 411.1 Performed By: #### L 300.3900 ####[facility] [address] [place], [address] Prothrombin timeOrdered By: Karon Corrales on 12-04-2024 PT Coag (PPP) [Time] 25.9 s High 11.7-14.9 [facility] International normalized rat io (INR) calculationOrdered By: Karon Corrales on 12-02-2024 INR Coag (Bld) [Relative time] 2.5 {INR} [facility] Prothrombin Time w/INRon INR Coag (PPP) [Relative time] 2.5 {INR} Normal [facility] Comment on above: Order Comment: 411.1 Performed By: #### L 300.3900 ####[facility] [address] [place], [address] PT Coag (PPP) [Time] 27.3 s High 11.7-14.9 [facility] Comment on above: Order Comment: 411.1 Performed By: #### L 300.3900 ####[facility] [address] [place], [address] Prothrombin timeOrdered By: Karon Corrales on 12-02-2024 PT Coag (PPP) [Time] 27.3 s High 11.7-14.9 [facility] International normalized rat io (INR) calculationOrdered By: Carlos Cavazos on 12-01-2024 INR Coag (Bld) [Relative time] 2.3 {INR} [facility] Prothrombin Time w/INRon INR Coag (PPP) [Relative time] 2.3 {INR} Normal [facility] Comment on above: Order Comment: 411-1 Performed By: #### L 300.3900 ####[facility] [address] [place], [address] PT Coag (PPP) [Time] 26.0 s High 11.7-14.9 [facility] Comment on above: Order Comment: 411-1 Performed By: #### L 300.3900 ####[facility] [address] [place], [address] Prothrombin timeOrdered By: Carlos Cavazos on 12-01-2024 PT Coag (PPP) [Time] 26.0 s High 11.7-14.9 [facility] International normalized rat io (INR) calculationOrdered By: Carlos Cavazos on 11-28-2024 INR Coag (Bld) [Relative time] 3.1 {INR} [facility] Prothrombin Time w/INRon INR Coag (PPP) [Relative time] 3.1 {INR} Normal [facility] Comment on above: Order Comment: 411-1 Performed By: #### L 300.3900 ####[facility] [address] [place], [address] PT Coag (PPP) [Time] 32.8 s High 11.7-14.9 [facility] Comment on above: Order Comment: 411-1 Performed By: #### L 300.3900 ####[facility] [address] [place], [address] Prothrombin timeOrdered By: Carlos Cavazos on 11-28-2024 PT Coag (PPP) [Time] 32.8 s High 11.7-14.9 [facility] International normalized rat io (INR) calculationOrdered By: Karon Corrales on 11-27-2024 INR Coag (Bld) [Relative time] 3.3 {INR} [facility] Prothrombin Time w/INRon INR Coag (PPP) [Relative time] 3.3 {INR} Normal [facility] Comment on above: Order Comment: 411.1 Performed By: #### L 300.3900 ####[facility] [address] [place], [place], [phone] PT Coag (PPP) [Time] 34.3 s High 11.7-14.9 [facility] Comment on above: Order Comment: 411.1 Performed By: #### L 300.3900 ####[facility] [address] [place], [place], [phone]) Prothrombin timeOrdered By: Karon Corrales on 11-27-2024 PT Coag (PPP) [Time] 34.3 s High 11.7-14.9 [facility] International normalized rat io (INR) calculationOrdered By: Karon Corrales on 11-24-2024 INR Coag (Bld) [Relative time] 2.8 {INR} [facility] Prothrombin Time w/INRon INR Coag (PPP) [Relative time] 2.8 {INR} Normal [facility] Comment on above: Order Comment: 411.2 Performed By: #### L 300.3900 ####[facility] [address] [place], [place], [phone] PT Coag (PPP) [Time] 30.0 s High 11.7-14.9 [facility] Comment on above: Order Comment: 411.2 Performed By: #### L 300.3900 ####[facility] [address] [place], [place], [phone]) Prothrombin timeOrdered By: Karon Corrales on 11-24-2024 PT Coag (PPP) [Time] 30.0 s High 11.7-14.9 [facility] International normalized rat io (INR) calculationOrdered By: Karon Corrales on 11-20-2024 INR Coag (Bld) [Relative time] 3.0 {INR} [facility] Prothrombin Time w/INRon INR Coag (PPP) [Relative time] 3.0 {INR} Normal [facility] Comment on above: Order Comment: 411.2 Performed By: #### L 300.3900 ####[facility] [address] [place], [place], [phone] PT Coag (PPP) [Time] 32.0 s High 11.7-14.9 [facility] Comment on above: Order Comment: 411.2 Performed By: #### L 300.3900 ####[facility] [address] [place], [place], [phone]([phone] Prothrombin timeOrdered By: Karon Corrales on 11-20-2024 PT Coag (PPP) [Time] 32.0 s High 11.7-14.9 [facility] International normalized rat io (INR) calculationOrdered By: Karon Corrales on 11-17-2024 INR Coag (Bld) [Relative time] 2.9 {INR} [facility] Prothrombin Time w/INRon INR Coag (PPP) [Relative time] 2.9 {INR} Normal [facility] Comment on above: Order Comment: 411.2 Performed By: #### L 300.3900 ####[facility] [address] [place], [place], [phone] PT Coag (PPP) [Time] 30.7 s High 11.7-14.9 [facility] Comment on above: Order Comment: 411.2 Performed By: #### L 300.3900 ####[facility] [address] [place], [place], [phone](953) Prothrombin timeOrdered By: Karon Corrales on 11-17-2024 PT Coag (PPP) [Time] 30.7 s High 11.7-14.9 [facility] International normalized rat io (INR) calculationOrdered By: Karon Corrales on 11-13-2024 INR Coag (Bld) [Relative time] 2.2 {INR} [facility] Prothrombin Time w/INRon INR Coag (PPP) [Relative time] 2.2 {INR} Normal [facility] Comment on above: Order Comment: 411.2 Performed By: #### L 300.3900 ####[facility] [address] [place], [place], [phone] PT Coag (PPP) [Time] 24.7 s High 11.7-14.9 [facility] Comment on above: Order Comment: 411.2 Performed By: #### L 300.3900 ####[facility] [address] [place], [place], [phone](504) Prothrombin timeOrdered By: Karon Corrales on 11-13-2024 PT Coag (PPP) [Time] 24.7 s High 11.7-14.9 [facility] International normalized rat io (INR) calculationOrdered By: Karon Corrales on 11-10-2024 INR Coag (Bld) [Relative time] 2.6 {INR} [facility] Prothrombin Time w/INRon INR Coag (PPP) [Relative time] 2.6 {INR} Normal [facility] Comment on above: Order Comment: 411.2 Performed By: #### L 300.3900 ####[facility] [address] [place], [address] PT Coag (PPP) [Time] 28.7 s High 11.7-14.9 [facility] Comment on above: Order Comment: 411.2 Performed By: #### L 300.3900 ####[facility] [address] [place], [place], [phone] Prothrombin timeOrdered By: Karon Corrales on 11-10-2024 PT Coag (PPP) [Time] 28.7 s High 11.7-14.9 [facility] International normalized rat io (INR) calculationOrdered By: Karon Corrales on 11-06-2024 INR Coag (Bld) [Relative time] 3.1 {INR} [facility] Prothrombin Time w/INRon INR Coag (PPP) [Relative time] 3.1 {INR} Normal [facility] Comment on above: Order Comment: 411.2 Performed By: #### L 300.3900 ####[facility] [address] [place], [address] Prothrombin timeOrdered By: Karon Corrales on 11-06-2024 PT Coag (PPP) [Time] 33.0 s High 11.7-14.9 [facility] Comment on above: Order Comment: 411.2 Performed By: #### L 300.3900 ####[facility] [address] [place], [address] International normalized rat io (INR) calculationOrdered By: Carlos Cavazos on 11-03-2024 INR Coag (Bld) [Relative time] 3.0 {INR} [facility] Prothrombin Time w/INRon INR Coag (PPP) [Relative time] 3.0 {INR} Normal [facility] Comment on above: Order Comment: 411-2 Performed By: #### L 300.3900 ####[facility] [address] [place], [address] PT Coag (PPP) [Time] 31.4 s High 11.7-14.9 [facility] Comment on above: Order Comment: 411-2 Performed By: #### L 300.3900 ####[facility] [address] [place], [address] Prothrombin timeOrdered By: Carlos Cavazos on 11-03-2024 PT Coag (PPP) [Time] 31.4 s High 11.7-14.9 [facility] International normalized rat io (INR) calculationOrdered By: Karon Corrales on 10-30-2024 INR Coag (Bld) [Relative time] 2.4 {INR} [facility] Prothrombin Time w/INRon INR Coag (PPP) [Relative time] 2.4 {INR} Normal [facility] Comment on above: Performed By: #### L 300.3900 ####[facility] [address] [place], [place], [phone] PT Coag (PPP) [Time] 26.3 s High 11.7-14.9 [facility] Comment on above: Performed By: #### L 300.3900 ####[facility] [address] [place], [place], [phone] Prothrombin timeOrdered By: Karon Corrales on 10-30-2024 PT Coag (PPP) [Time] 26.3 s High 11.7-14.9 [facility] International normalized rat io (INR) calculationOrdered By: Karon Corrales on 10-27-2024 INR Coag (Bld) [Relative time] 2.2 {INR} [facility] Prothrombin Time w/INRon INR Coag (PPP) [Relative time] 2.2 {INR} Normal [facility] Comment on above: Order Comment: 411.2 Performed By: #### L 300.3900 ####[facility] [address] [place], [place], [phone] Prothrombin timeOrdered By: Karon Corrales on 10-27-2024 PT Coag (PPP) [Time] 24.5 s High 11.7-14.9 [facility] Comment on above: Order Comment: 411.2 Performed By: #### L 300.3900 ####[facility] [address] [place], [address] International normalized rat io (INR) calculationOrdered By: Karon Corrales on 10-23-2024 INR Coag (Bld) [Relative time] 2.5 {INR} [facility] Prothrombin Time w/INRon INR Coag (PPP) [Relative time] 2.5 {INR} Normal [facility] Comment on above: Order Comment: 411.2 Performed By: #### L 300.3900 ####[facility] [address] [place], [address] PT Coag (PPP) [Time] 27.9 s High 11.7-14.9 [facility] Comment on above: Order Comment: 411.2 Performed By: #### L 300.3900 ####[facility] [address] [place], [address] Prothrombin timeOrdered By: Karon Corrales on 10-23-2024 PT Coag (PPP) [Time] 27.9 s High 11.7-14.9 [facility] International normalized rat io (INR) calculationOrdered By: Karon Corrales on 10-20-2024 INR Coag (Bld) [Relative time] 3.1 {INR} [facility] Prothrombin Time w/INRon INR Coag (PPP) [Relative time] 3.1 {INR} Normal [facility] Comment on above: Order Comment: 411.2 Performed By: #### L 300.3900 ####[facility] [address] [place], [address] PT Coag (PPP) [Time] 32.8 s High 11.7-14.9 [facility] Comment on above: Order Comment: 411.2 Performed By: #### L 300.3900 ####[facility] [address] [place], [address] Prothrombin timeOrdered By: Karon Corrales on 10-20-2024 PT Coag (PPP) [Time] 32.8 s High 11.7-14.9 [facility] International normalized rat io (INR) calculationOrdered By: Karon Corrales on 10-16-2024 INR Coag (Bld) [Relative time] 2.8 {INR} [facility] Prothrombin Time w/INRon INR Coag (PPP) [Relative time] 2.8 {INR} Normal [facility] Comment on above: Order Comment: 411.2 Performed By: #### L 300.3900 ####[facility] [address] [place], [place], [phone] PT Coag (PPP) [Time] 30.4 s High 11.7-14.9 [facility] Comment on above: Order Comment: 411.2 Performed By: #### L 300.3900 ####[facility] [address] [place], [phone] Prothrombin timeOrdered By: Karon Corrales on 10-16-2024 PT Coag (PPP) [Time] 30.4 s High 11.7-14.9 [facility] International normalized rat io (INR) calculationOrdered By: Carlos Cavazso on 10-13-2024 INR Coag (Bld) [Relative time] 1.9 {INR} [facility] Prothrombin Time w/INRon INR Coag (PPP) [Relative time] 1.9 {INR} Normal [facility] Comment on above: Order Comment: 411-2 Performed By: #### L 300.3900 ####[facility] [address] [place], [place], [phone] PT Coag (PPP) [Time] 22.4 s High 11.7-14.9 [facility] Comment on above: Order Comment: 411-2 Performed By: #### L 300.3900 ####[facility] [address] [place], [place], [phone] Prothrombin timeOrdered By: Carlos Cavazos on 10-13-2024 PT Coag (PPP) [Time] 22.4 s High 11.7-14.9 [facility] International normalized rat io (INR) calculationOrdered By: Karon Corrales on 10-09-2024 INR Coag (Bld) [Relative time] 3.0 {INR} [facility] Prothrombin Time w/INRon INR Coag (PPP) [Relative time] 3.0 {INR} Normal [facility] Comment on above: Order Comment: 411.2 Performed By: #### L 300.3900 ####[facility] [address] [place], [address] Prothrombin timeOrdered By: Karon Corrales on 10-09-2024 PT Coag (PPP) [Time] 31.8 s High 11.7-14.9 [facility] Comment on above: Order Comment: 411.2 Performed By: #### L 300.3900 ####[facility] [address] [place], [address] International normalized rat io (INR) calculationOrdered By: Carlos Cavazos on 10-06-2024 INR Coag (Bld) [Relative time] 2.7 {INR} [facility] Prothrombin Time w/INRon INR Coag (PPP) [Relative time] 2.7 {INR} Normal [facility] Comment on above: Order Comment: 411-2 Performed By: #### L 300.3900 ####[facility] [address] [place], [address] PT Coag (PPP) [Time] 29.6 s High 11.7-14.9 [facility] Comment on above: Order Comment: 411-2 Performed By: #### L 300.3900 ####[facility] [address] [place], [address] Prothrombin timeOrdered By: Carlos Cavazos on 10-06-2024 PT Coag (PPP) [Time] 29.6 s High 11.7-14.9 [facility] International normalized rat io (INR) calculationOrdered By: Karon Corrales on 10-02-2024 INR Coag (Bld) [Relative time] 2.3 {INR} [facility] Prothrombin Time w/INRon INR Coag (PPP) [Relative time] 2.3 {INR} Normal [facility] Comment on above: Order Comment: 411.2 Performed By: #### L 300.3900 ####[facility] [address] [place], [address] PT Coag (PPP) [Time] 26.0 s High 11.7-14.9 [facility] Comment on above: Order Comment: 411.2 Performed By: #### L 300.3900 ####[facility] [address] [place], [address] Prothrombin timeOrdered By: Karon Corrales on 10-02-2024 PT Coag (PPP) [Time] 26.0 s High 11.7-14.9 [facility] International normalized rat io (INR) calculationOrdered By: Karon Corrales on 09-30-2024 INR Coag (Bld) [Relative time] 3.1 {INR} [facility] Prothrombin Time w/INRon INR Coag (PPP) [Relative time] 3.1 {INR} Normal [facility] Comment on above: Order Comment: 411.2 Performed By: #### L 300.3900 ####[facility] [address] [place], [address] PT Coag (PPP) [Time] 32.6 s High 11.7-14.9 [facility] Comment on above: Order Comment: 411.2 Performed By: #### L 300.3900 ####[facility] [address] [place], [place], [phone] Prothrombin timeOrdered By: Karon Corrales on 09-30-2024 PT Coag (PPP) [Time] 32.6 s High 11.7-14.9 [facility] International normalized rat io (INR) calculationOrdered By: Karon Corrales on 09-25-2024 INR Coag (Bld) [Relative time] 2.4 {INR} [facility] Prothrombin Time w/INRon INR Coag (PPP) [Relative time] 2.4 {INR} Normal [facility] Comment on above: Order Comment: 411.2 Performed By: #### L 300.3900 ####[facility] [address] [place], [address] Prothrombin timeOrdered By: Karon Corrales on 09-25-2024 PT Coag (PPP) [Time] 26.7 s High 11.7-14.9 [facility] Comment on above: Order Comment: 411.2 Performed By: #### L 300.3900 ####[facility] [address] [place], [place], [phone] International normalized rat io (INR) calculationOrdered By: Karon Corrales on 09-22-2024 INR Coag (Bld) [Relative time] 2.5 {INR} [facility] Prothrombin Time w/INRon INR Coag (PPP) [Relative time] 2.5 {INR} Normal [facility] Comment on above: Order Comment: 411.2 Performed By: #### L 300.3900 ####[facility] [address] [place], [place], [phone] Prothrombin timeOrdered By: Karon Corrales on 09-22-2024 PT Coag (PPP) [Time] 27.4 s High 11.7-14.9 [facility] Comment on above: Order Comment: 411.2 Performed By: #### L 300.3900 ####[facility] [address] [place], [address] International normalized rat io (INR) calculationOrdered By: Karon Corrales on 09-18-2024 INR Coag (Bld) [Relative time] 2.2 {INR} [facility] Prothrombin Time w/INRon INR Coag (PPP) [Relative time] 2.2 {INR} Normal [facility] Comment on above: Order Comment: 411.2 Performed By: #### L 300.3900 ####[facility] [address] [place], [place], [phone] PT Coag (PPP) [Time] 25.1 s High 11.7-14.9 [facility] Comment on above: Order Comment: 411.2 Performed By: #### L 300.3900 ####[facility] [address] [place], [place], [phone] Prothrombin timeOrdered By: Karon Corrales on 09-18-2024 PT Coag (PPP) [Time] 25.1 s High 11.7-14.9 [facility] International normalized rat io (INR) calculationOrdered By: Carlos Cavazos on 09-15-2024 INR Coag (Bld) [Relative time] 2.4 {INR} [facility] Prothrombin Time w/INRon INR Coag (PPP) [Relative time] 2.4 {INR} Normal [facility] Comment on above: Order Comment: 411-2 Performed By: #### L 300.3900 ####[facility] [address] [place], [place], [phone] Prothrombin timeOrdered By: Carlos Cavazos on 09-15-2024 PT Coag (PPP) [Time] 26.3 s High 11.7-14.9 [facility] Comment on above: Order Comment: 411-2 Performed By: #### L 300.3900 ####[facility] [address] [place], [place], [phone] International normalized rat io (INR) calculationOrdered By: Karon Corrales on 09-11-2024 INR Coag (Bld) [Relative time] 2.0 {INR} [facility] Prothrombin Time w/INRon INR Coag (PPP) [Relative time] 2.0 {INR} Normal [facility] Comment on above: Order Comment: 411.2 Performed By: #### L 300.3900 ####[facility] [address] [place], [place], [phone] PT Coag (PPP) [Time] 22.9 s High 11.7-14.9 [facility] Comment on above: Order Comment: 411.2 Performed By: #### L 300.3900 ####[facility] [address] [place], [place], [phone](107) Prothrombin timeOrdered By: Karon Corrales on 09-11-2024 PT Coag (PPP) [Time] 22.9 s High 11.7-14.9 [facility] International normalized rat io (INR) calculationOrdered By: Karon Corrales on 09-08-2024 INR Coag (Bld) [Relative time] 2.0 {INR} [facility] Prothrombin Time w/INRon INR Coag (PPP) [Relative time] 2.0 {INR} Normal [facility] Comment on above: Order Comment: 411.2 Performed By: #### L 300.3900 ####[facility] [address] [place], [place], [phone] PT Coag (PPP) [Time] 22.8 s High 11.7-14.9 [facility] Comment on above: Order Comment: 411.2 Performed By: #### L 300.3900 ####[facility] [address] [place], [place], [phone](014) Prothrombin timeOrdered By: Karon Corrales on 09-08-2024 PT Coag (PPP) [Time] 22.8 s High 11.7-14.9 [facility] International normalized rat io (INR) calculationOrdered By: Carlos Cavazos on 09-04-2024 INR Coag (Bld) [Relative time] 1.7 {INR} [facility] Prothrombin Time w/INRon INR Coag (PPP) [Relative time] 1.7 {INR} Normal [facility] Comment on above: Order Comment: 411-2 Performed By: #### L 300.3900 ####[facility] [address] [place], [phone] PT Coag (PPP) [Time] 20.8 s High 11.7-14.9 [facility] Comment on above: Order Comment: 411-2 Performed By: #### L 300.3900 ####[facility] [address], [phone] Prothrombin timeOrdered By: Carlos Cavazos on 09-04-2024 PT Coag (PPP) [Time] 20.8 s High 11.7-14.9 [facility] International normalized rat io (INR) calculationOrdered By: Carlos Cavazos on 09-01-2024 INR Coag (Bld) [Relative time] 2.9 {INR} [facility] Prothrombin Time w/INRon INR Coag (PPP) [Relative time] 2.9 {INR} Normal [facility] Comment on above: Order Comment: 411-2 Performed By: #### L 300.3900 ####[facility] [address] [place], [address] PT Coag (PPP) [Time] 30.7 s High 11.7-14.9 [facility] Comment on above: Order Comment: 411-2 Performed By: #### L 300.3900 ####[facility] [address] [place], [phone] Prothrombin timeOrdered By: Carlos Cavazos on 09-01-2024 PT Coag (PPP) [Time] 30.7 s High 11.7-14.[address] [facility] International normalized rat io (INR) calculationOrdered By: Carlos Cavazos on 08-28-2024 INR Coag (Bld) [Relative time] 2.4 {INR} [facility] Prothrombin Time w/INRon INR Coag (PPP) [Relative time] 2.4 {INR} Normal [facility] Comment on above: Order Comment: 411-2 Performed By: #### L 300.3900 ####[facility] [address] [place], [address] Prothrombin timeOrdered By: Carlos Cavazos on 08-28-2024 PT Coag (PPP) [Time] 26.7 s High 11.7-14.9 [facility] Comment on above: Order Comment: 411-2 Performed By: #### L 300.3900 ####[facility] [address] [place], [address] International normalized rat io (INR) calculationOrdered By: Karon Corrales on 08-25-2024 INR Coag (Bld) [Relative time] 1.8 {INR} [facility] Prothrombin Time w/INRon INR Coag (PPP) [Relative time] 1.8 {INR} Normal [facility] Comment on above: Order Comment: 411.2 Performed By: #### L 300.3900 ####[facility] [address] [place], [place], [phone] PT Coag (PPP) [Time] 21.6 s High 11.7-14.9 [facility] Comment on above: Order Comment: 411.2 Performed By: #### L 300.3900 ####[facility] [address] [place], [address] Prothrombin timeOrdered By: Karon Corrales on 08-25-2024 PT Coag (PPP) [Time] 21.6 s High 11.7-14.9 [facility] International normalized rat io (INR) calculationOrdered By: Karon Corrales on 08-21-2024 INR Coag (Bld) [Relative time] 1.7 {INR} [facility] PSA, total screeningOrdered By: Karon Corrales on 08-21-2024 Prostate Specific Antigen Screen 0.52 ng/mL 0.02-4.00 [facility] Comment on above: This test was perfor med using the [employer] tPSA method. Measured values of a patient sample can vary depending on the testing procedure used. PSA values determined on patient samples by different testing procedures cannot be used interchangeably. If there is a change in PSA assays while monitoring therapy, sequential testing should be performed to confirm baseline values. PSA,Total - Annual Screenon 08-21-2024 PSA,TOT SCREEN 0.52 ng/mL Normal 0.02-4.00 [facility] Comment on above: Order Comment: [...] values. Performed By: #### L 501.9910, L300.3900 ####[facility] [address] [place], [address] Prothrombin Time w/INRon INR Coag (PPP) [Relative time] 1.7 {INR} Normal [facility] Comment on above: Order Comment: 411.2 Performed By: #### L 501.9910, L300.3900 ####[facility] [address] [place], [address] Prothrombin timeOrdered By: Karon Corrales on 08-21-2024 PT Coag (PPP) [Time] 20.1 s High 11.7-14.9 [facility] Comment on above: Order Comment: 411.2 Performed By: #### L 501.9910, L300.3900 ####[facility] [address] [place], [place], [phone] International normalized rat io (INR) calculationOrdered By: Karon Corrales on 08-18-2024 INR Coag (Bld) [Relative time] 3.0 {INR} [facility] Prothrombin Time w/INRon INR Coag (PPP) [Relative time] 3.0 {INR} Normal [facility] Comment on above: Order Comment: 411.2 Performed By: #### L 300.3900 ####[facility] [address] [place], [place], [phone]) PT Coag (PPP) [Time] 31.4 s High 11.7-14.9 [facility] Comment on above: Order Comment: 411.2 Performed By: #### L 300.3900 ####[facility] [address] [place], [place], [phone]([phone] Prothrombin timeOrdered By: Karon Corrales on 08-18-2024 PT Coag (PPP) [Time] 31.4 s High 11.7-14.9 [facility] International normalized rat io (INR) calculationOrdered By: Karon Corrales on 08-14-2024 INR Coag (Bld) [Relative time] 2.4 {INR} [facility] Prothrombin Time w/INRon INR Coag (PPP) [Relative time] 2.4 {INR} Normal [facility] Comment on above: Order Comment: 411.2 Performed By: #### L 300.3900 ####[facility] [address] [place], [address] PT Coag (PPP) [Time] 26.6 s High 11.7-14.9 [facility] Comment on above: Order Comment: 411.2 Performed By: #### L 300.3900 ####[facility] [address] [place], [place], [phone]) Prothrombin timeOrdered By: Karon Corrales on 08-14-2024 PT Coag (PPP) [Time] 26.6 s High 11.7-14.9 [facility] International normalized rat io (INR) calculationOrdered By: Karon Corrales on 08-11-2024 INR Coag (Bld) [Relative time] 3.1 {INR} [facility] Prothrombin Time w/INRon INR Coag (PPP) [Relative time] 3.1 {INR} Normal [facility] Comment on above: Order Comment: 411.2 Performed By: #### L 300.3900 ####[facility] [address] [place], [place], [phone]([phone] PT Coag (PPP) [Time] 32.4 s High 11.7-14.9 [facility] Comment on above: Order Comment: 411.2 Performed By: #### L 300.3900 ####[facility] [address] [place], [place], [phone] Prothrombin timeOrdered By: Karon Corrales on 08-11-2024 PT Coag (PPP) [Time] 32.4 s High 11.7-14.9 [facility] International normalized rat io (INR) calculationOrdered By: Carlos Cavazos on 08-07-2024 INR Coag (Bld) [Relative time] 2.8 {INR} [facility] Prothrombin Time w/INRon INR Coag (PPP) [Relative time] 2.8 {INR} Normal [facility] Comment on above: Order Comment: 411-2 Performed By: #### L 300.3900 ####[facility] [address] [place], [place], [phone] PT Coag (PPP) [Time] 30.3 s High 11.7-14.9 [facility] Comment on above: Order Comment: 411-2 Performed By: #### L 300.3900 ####[facility] [address] [place], [address] Prothrombin timeOrdered By: Carlos Cavazos on 08-07-2024 PT Coag (PPP) [Time] 30.3 s High 11.7-14.9 [facility] International normalized rat io (INR) calculationOrdered By: Carlos Cavazos on 08-04-2024 INR Coag (Bld) [Relative time] 1.9 {INR} [facility] Prothrombin Time w/INRon INR Coag (PPP) [Relative time] 1.9 {INR} Normal [facility] Comment on above: Order Comment: 411-2 Performed By: #### L 300.3900 ####[facility] [address] [place], [place], [phone] PT Coag (PPP) [Time] 22.1 s High 11.7-14.9 [facility] Comment on above: Order Comment: 411-2 Performed By: #### L 300.3900 ####[facility] [address] [place], [place], [phone] Prothrombin timeOrdered By: Carlos Cavazos on 08-04-2024 PT Coag (PPP) [Time] 22.1 s High 11.7-14.9 [facility] International normalized rat io (INR) calculationOrdered By: Karon Corrales on 07-31-2024 INR Coag (Bld) [Relative time] 3.2 {INR} [facility] Prothrombin Time w/INRon INR Coag (PPP) [Relative time] 3.2 {INR} Normal [facility] Comment on above: Order Comment: 411.2 Performed By: #### L 300.3900 ####[facility] [address] [place], [place], [phone] PT Coag (PPP) [Time] 33.5 s High 11.7-14.9 [facility] Comment on above: Order Comment: 411.2 Performed By: #### L 300.3900 ####[facility] [address] [place], [place], [phone] Prothrombin timeOrdered By: Karon Corrales on 07-31-2024 PT Coag (PPP) [Time] 33.5 s High 11.7-14.9 [facility] International normalized rat io (INR) calculationOrdered By: Karon Corrales on 07-28-2024 INR Coag (Bld) [Relative time] 2.7 {INR} [facility] Prothrombin Time w/INRon INR Coag (PPP) [Relative time] 2.7 {INR} Normal [facility] Comment on above: Order Comment: 411.2 Performed By: #### L 300.3900 ####[facility] [address] [place], [place], [phone] PT Coag (PPP) [Time] 29.6 s High 11.7-14.9 [facility] Comment on above: Order Comment: 411.2 Performed By: #### L 300.3900 ####[facility] [address] [place], [place], [phone] Prothrombin timeOrdered By: Karon Corrales on 07-28-2024 PT Coag (PPP) [Time] 29.6 s High 11.7-14.9 [facility] International normalized rat io (INR) calculationOrdered By: Carlos Cavazos on 07-25-2024 INR Coag (Bld) [Relative time] 3.0 {INR} [facility] Prothrombin Time w/INRon INR Coag (PPP) [Relative time] 3.0 {INR} Normal [facility] Comment on above: Order Comment: 411-2 Performed By: #### L 300.3900 ####[facility] [address] [place], [address] Prothrombin timeOrdered By: Carlos Cavazos on 07-25-2024 PT Coag (PPP) [Time] 32.1 s High 11.7-14.9 [facility] Comment on above: Order Comment: 411-2 Performed By: #### L 300.3900 ####[facility] [address] [place], [place], [phone] International normalized rat io (INR) calculationOrdered By: Karon Corrales on 07-24-2024 INR Coag (Bld) [Relative time] 3.4 {INR} [facility] Prothrombin Time w/INRon INR Coag (PPP) [Relative time] 3.4 {INR} Normal [facility] Comment on above: Order Comment: 411.2 Performed By: #### L 300.3900 ####[facility] [address] [place], [place], [phone] Prothrombin timeOrdered By: Karon Corrales on 07-24-2024 PT Coag (PPP) [Time] 35.4 s High 11.7-14.9 [facility] Comment on above: Order Comment: 411.2 Performed By: #### L 300.3900 ####[facility] [address] [place], [place], [phone] International normalized rat io (INR) calculationOrdered By: Karon Corrales on 07-21-2024 INR Coag (Bld) [Relative time] 1.6 {INR} [facility] Prothrombin Time w/INRon INR Coag (PPP) [Relative time] 1.6 {INR} Normal [facility] Comment on above: Order Comment: 411.2 Performed By: #### L 300.3900 ####[facility] [address] [place], [place], [phone] PT Coag (PPP) [Time] 19.6 s High 11.7-14.9 [facility] Comment on above: Order Comment: 411.2 Performed By: #### L 300.3900 ####[facility] [address] [place], [place], [phone] Prothrombin timeOrdered By: Karon Corrales on 07-21-2024 PT Coag (PPP) [Time] 19.6 s High 11.7-14.9 [facility] International normalized rat io (INR) calculationOrdered By: Karon Corrales on 07-17-2024 INR Coag (Bld) [Relative time] 2.9 {INR} [facility] Prothrombin Time w/INRon INR Coag (PPP) [Relative time] 2.9 {INR} Normal [facility] Comment on above: Order Comment: 411.2 Performed By: #### L 300.3900 ####[facility] [address] [place], [place], [phone] PT Coag (PPP) [Time] 31.1 s High 11.7-14.9 [facility] Comment on above: Order Comment: 411.2 Performed By: #### L 300.3900 ####[facility] [address] [place], [address] Prothrombin timeOrdered By: Karon Corrales on 07-17-2024 PT Coag (PPP) [Time] 31.1 s High 11.7-14.9 [facility] International normalized rat io (INR) calculationOrdered By: Carlos Cavazos on 07-14-2024 INR Coag (Bld) [Relative time] 2.5 {INR} [facility] Prothrombin Time w/INRon INR Coag (PPP) [Relative time] 2.5 {INR} Normal [facility] Comment on above: Order Comment: 411-2 Performed By: #### L 300.3900 ####[facility] [address] [place], [address] PT Coag (PPP) [Time] 27.5 s High 11.7-14.9 [facility] Comment on above: Order Comment: 411-2 Performed By: #### L 300.3900 ####[facility] [address] [place], [address] Prothrombin timeOrdered By: Carlos Cavazos on 07-14-2024 PT Coag (PPP) [Time] 27.5 s High 11.7-14.9 [facility] International normalized rat io (INR) calculationOrdered By: Carlos Cavazos on 07-11-2024 INR Coag (Bld) [Relative time] 2.5 {INR} [facility] Prothrombin Time w/INRon INR Coag (PPP) [Relative time] 2.5 {INR} Normal [facility] Comment on above: Performed By: #### L 300.3900 ####[facility] [address] [place], [address] PT Coag (PPP) [Time] 27.7 s High 11.7-14.9 [facility] Comment on above: Performed By: #### L 300.3900 ####[facility] [address] [place], [place], [phone] Prothrombin timeOrdered By: Carlos Cavazos on 07-11-2024 PT Coag (PPP) [Time] 27.7 s High 11.7-14.9 [facility] Prothrombin Time w/INRon INR Normal [facility] Comment on above: Order Comment: 411.2 Result Comment: QNS TUBE NOT FILLED Performed By: #### L 300.3900 ####[facility] [address] [place], [place], [phone] PROTIME Normal 11.7-14.9 [facility] Comment on above: Order Comment: 411.2 Result Comment: QNS TUBE NOT FILLED Performed By: #### L 300.3900 ####[facility] [address] [place], [place], [phone](930) International normalized rat io (INR) calculationOrdered By: Kvng Crisostomo on 07-07-2024 INR Coag (Bld) [Relative time] 2.5 {INR} [facility] Prothrombin Time w/INRon INR Coag (PPP) [Relative time] 2.5 {INR} Normal [facility] Comment on above: Order Comment: 411.2 Performed By: #### L 300.3900 ####[facility] [address] [place], [address] PT Coag (PPP) [Time] 27.2 s High 11.7-14.9 [facility] Comment on above: Order Comment: 411.2 Performed By: #### L 300.3900 ####[facility] [address] [place], [address] Prothrombin timeOrdered By: Kvng Crisostomo on 07-07-2024 PT Coag (PPP) [Time] 27.2 s High 11.7-14.9 [facility] International normalized rat io (INR) calculationOrdered By: Kvng Crisostomo on 07-03-2024 INR Coag (Bld) [Relative time] 2.5 {INR} [facility] Prothrombin Time w/INRon INR Coag (PPP) [Relative time] 2.5 {INR} Normal [facility] Comment on above: Order Comment: 411.2 Performed By: #### L 300.3900 ####[facility] [address] [place], [address] PT Coag (PPP) [Time] 27.2 s High 11.7-14.9 [facility] Comment on above: Order Comment: 411.2 Performed By: #### L 300.3900 ####[facility] [address] [place], [address] Prothrombin timeOrdered By: Kvng Crisostomo on 07-03-2024 PT Coag (PPP) [Time] 27.2 s High 11.7-14.9 [facility] International normalized rat io (INR) calculationOrdered By: Kvng Crisostomo on 06-30-2024 INR Coag (Bld) [Relative time] 2.4 {INR} [facility] Prothrombin Time w/INRon INR Coag (PPP) [Relative time] 2.4 {INR} Normal [facility] Comment on above: Order Comment: 411.2 Performed By: #### L 300.3900 ####[facility] [address] [place], [address] PT Coag (PPP) [Time] 26.8 s High 11.7-14.9 [facility] Comment on above: Order Comment: 411.2 Performed By: #### L 300.3900 ####[facility] [address] [place], [address] Prothrombin timeOrdered By: Kvng Crisostomo on 06-30-2024 PT Coag (PPP) [Time] 26.8 s High 11.7-14.9 [facility] International normalized rat io (INR) calculationOrdered By: Kvng Crisostomo on 06-26-2024 INR Coag (Bld) [Relative time] 2.5 {INR} [facility] Prothrombin Time w/INRon INR Coag (PPP) [Relative time] 2.5 {INR} Normal [facility] Comment on above: Order Comment: 411.2 Performed By: #### L 300.3900 ####[facility] [address] [place], [address] PT Coag (PPP) [Time] 27.5 s High 11.7-14.9 [facility] Comment on above: Order Comment: 411.2 Performed By: #### L 300.3900 ####[facility] [address] [place], [place], [phone](538) Prothrombin timeOrdered By: Kvng Crisostomo on 06-26-2024 PT Coag (PPP) [Time] 27.5 s High 11.7-14.9 [facility] International normalized rat io (INR) calculationOrdered By: Carlos Cavazos on 06-23-2024 INR Coag (Bld) [Relative time] 2.8 {INR} [facility] Prothrombin Time w/INRon INR Coag (PPP) [Relative time] 2.8 {INR} Normal [facility] Comment on above: Order Comment: 411-2 Performed By: #### L 300.3900 ####[facility] [address] [place], [address] PT Coag (PPP) [Time] 29.7 s High 11.7-14.9 [facility] Comment on above: Order Comment: 411-2 Performed By: #### L 300.3900 ####[facility] [address] [place], [address] Prothrombin timeOrdered By: Carlos Cavazos on 06-23-2024 PT Coag (PPP) [Time] 29.7 s High 11.7-14.9 [facility] International normalized rat io (INR) calculationOrdered By: Kvng Crisostomo on 06-19-2024 INR Coag (Bld) [Relative time] 2.6 {INR} [facility] Prothrombin Time w/INRon INR Coag (PPP) [Relative time] 2.6 {INR} Normal [facility] Comment on above: Order Comment: 411.2 Performed By: #### L 300.3900 ####[facility] [address] [place], [address] PT Coag (PPP) [Time] 28.6 s High 11.7-14.9 [facility] Comment on above: Order Comment: 411.2 Performed By: #### L 300.3900 ####[facility] [address] [place], [address] Prothrombin timeOrdered By: Kvng Crisostomo on 06-19-2024 PT Coag (PPP) [Time] 28.6 s High 11.7-14.9 [facility] International normalized rat io (INR) calculationOrdered By: Kvng Crisostomo on 06-16-2024 INR Coag (Bld) [Relative time] 2.5 {INR} [facility] Prothrombin Time w/INRon INR Coag (PPP) [Relative time] 2.5 {INR} Normal [facility] Comment on above: Order Comment: 411.2 Performed By: #### L 300.3900 ####[facility] [address] [place], [address] PT Coag (PPP) [Time] 27.3 s High 11.7-14.9 [facility] Comment on above: Order Comment: 411.2 Performed By: #### L 300.3900 ####[facility] [address] [place], [address] Prothrombin timeOrdered By: Kvng Crisostomo on 06-16-2024 PT Coag (PPP) [Time] 27.3 s High 11.7-14.9 [facility] International normalized rat io (INR) calculationOrdered By: Kvng Crisostomo on 06-12-2024 INR Coag (Bld) [Relative time] 2.1 {INR} [facility] Prothrombin Time w/INRon INR Coag (PPP) [Relative time] 2.1 {INR} Normal [facility] Comment on above: Order Comment: 411.2 Performed By: #### L 300.3900 ####[facility] [address] [place], [address] PT Coag (PPP) [Time] 24.0 s High 11.7-14.9 [facility] Comment on above: Order Comment: 411.2 Performed By: #### L 300.3900 ####[facility] [address] [place], [address] Prothrombin timeOrdered By: Kvng Crisostomo on 06-12-2024 PT Coag (PPP) [Time] 24.0 s High 11.7-14.9 [facility] International normalized rat io (INR) calculationOrdered By: Carlos Cavazos on 06-09-2024 INR Coag (Bld) [Relative time] 1.5 {INR} [facility] Prothrombin Time w/INRon INR Coag (PPP) [Relative time] 1.5 {INR} Normal [facility] Comment on above: Order Comment: 411-2 Performed By: #### L 300.3900 ####[facility] [address] [place], [address] PT Coag (PPP) [Time] 18.0 s High 11.7-14.9 [facility] Comment on above: Order Comment: 411-2 Performed By: #### L 300.3900 ####[facility] [address] [place], [address] Prothrombin timeOrdered By: Carlos Cavazos on 06-09-2024 PT Coag (PPP) [Time] 18.0 s High 11.7-14.9 [facility] International normalized rat io (INR) calculationOrdered By: Kvng Crisostomo on 06-05-2024 INR Coag (Bld) [Relative time] 2.8 {INR} [facility] Prothrombin Time w/INRon INR Coag (PPP) [Relative time] 2.8 {INR} Normal [facility] Comment on above: Order Comment: 411.2 Performed By: #### L 300.3900 ####[facility] [address], [address] PT Coag (PPP) [Time] 30.3 s High 11.7-14.9 [facility] Comment on above: Order Comment: 411.2 Performed By: #### L 300.3900 ####[facility] [address] [place], [address] Prothrombin timeOrdered By: Kvng Crisostomo on 06-05-2024 PT Coag (PPP) [Time] 30.3 s High 11.7-14.9 [facility] International normalized rat io (INR) calculationOrdered By: Kvng Crisostomo on 06-02-2024 INR Coag (Bld) [Relative time] 2.6 {INR} [facility] Prothrombin Time w/INRon INR Coag (PPP) [Relative time] 2.6 {INR} Normal [facility] Comment on above: Order Comment: 411.2 Performed By: #### L 300.3900 ####[facility] [address] [place], [address] PT Coag (PPP) [Time] 28.6 s High 11.7-14.9 [facility] Comment on above: Order Comment: 411.2 Performed By: #### L 300.3900 ####[facility] [address] [facility] [address] Prothrombin timeOrdered By: Kvng Crisostomo on 06-02-2024 PT Coag (PPP) [Time] 28.6 s High 11.7-14.9 [facility] International normalized rat io (INR) calculationOrdered By: Kvng Crisostomo on 05-29-2024 INR Coag (Bld) [Relative time] 2.5 {INR} [facility] Prothrombin Time w/INRon INR Coag (PPP) [Relative time] 2.5 {INR} Normal [facility] Comment on above: Order Comment: 411.2 Performed By: #### L 300.3900 ####[facility] [address] [place], [address] PT Coag (PPP) [Time] 27.7 s High 11.7-14.9 [facility] Comment on above: Order Comment: 411.2 Performed By: #### L 300.3900 ####[facility] [address] [place], [address] Prothrombin timeOrdered By: Kvng Crisostomo on 05-29-2024 PT Coag (PPP) [Time] 27.7 s High 11.7-14.9 [facility] International normalized rat io (INR) calculationOrdered By: Carlos Cavazos on 05-26-2024 INR Coag (Bld) [Relative time] 2.2 {INR} [facility] Prothrombin Time w/INRon INR Coag (PPP) [Relative time] 2.2 {INR} Normal [facility] Comment on above: Order Comment: 411-2 Performed By: #### L 300.3900 ####[facility] [address] [place], [place], [phone] PT Coag (PPP) [Time] 24.5 s High 11.7-14.9 [facility] Comment on above: Order Comment: 411-2 Performed By: #### L 300.3900 ####[facility] [address] [place], [address] Prothrombin timeOrdered By: Carlos Cavazos on 05-26-2024 PT Coag (PPP) [Time] 24.5 s High 11.7-14.9 [facility] International normalized rat io (INR) calculationOrdered By: Kvng Crisostomo on 05-22-2024 INR Coag (Bld) [Relative time] 2.8 {INR} [facility] Prothrombin Time w/INRon INR Coag (PPP) [Relative time] 2.8 {INR} Normal [facility] Comment on above: Order Comment: 411.2 Performed By: #### L 300.3900 ####[facility] [address] [place], [place], [phone] PT Coag (PPP) [Time] 30.3 s High 11.7-14.9 [facility] Comment on above: Order Comment: 411.2 Performed By: #### L 300.3900 ####[facility] [address] [place], [address] Prothrombin timeOrdered By: Kvng Crisostomo on 05-22-2024 PT Coag (PPP) [Time] 30.3 s High 11.7-14.9 [facility] International normalized rat io (INR) calculationOrdered By: Kvng Crisostomo on 05-20-2024 INR Coag (Bld) [Relative time] 4.0 {INR} High [facility] Comment on above: CRITICAL VALUE CASEY D TO [id number]/14/25 08 Diana Srinivasan.RESULTS READ BACK BY SAME. Prothrombin Time w/INRon INR Coag (PPP) [Relative time] 4.0 {INR} Invalid Interpretation Code [facility] Comment on above: Order Comment: 411.2 Result Comment: CRIT ICAL VALUE CALLED TO [id number]/14/25 [facility] Diana Mattson.RESULTS READ BACK BY SAME. Performed By: #### L 300.3900 ####[facility] [address] [place], [place], [phone]) PT Coag (PPP) [Time] 39.9 s High 11.7-14.9 [facility] Comment on above: Order Comment: 411.2 Performed By: #### L 300.3900 ####[facility] [address] [place], [place], [phone](139) Prothrombin timeOrdered By: Kvng Crisostomo on 05-20-2024 PT Coag (PPP) [Time] 39.9 s High 11.7-14.9 [facility] International normalized rat io (INR) calculationOrdered By: Kvng Crisostomo on 05-19-2024 INR Coag (Bld) [Relative time] 3.4 {INR} [facility] Prothrombin Time w/INRon INR Coag (PPP) [Relative time] 3.4 {INR} Normal [facility] Comment on above: Order Comment: 411.2 Performed By: #### L 300.3900 ####[facility] [address] [place], [place], [phone](141) PT Coag (PPP) [Time] 35.4 s High 11.7-14.9 [facility] Comment on above: Order Comment: 411.2 Performed By: #### L 300.3900 ####[facility] [address] [place], [place], [phone](016) Prothrombin timeOrdered By: Kvng Crisostomo on 05-19-2024 PT Coag (PPP) [Time] 35.4 s High 11.7-14.9 [facility] International normalized rat io (INR) calculationOrdered By: Kvng Crisostomo on 05-15-2024 INR Coag (Bld) [Relative time] 2.6 {INR} [facility] Prothrombin Time w/INRon INR Coag (PPP) [Relative time] 2.6 {INR} Normal [facility] Comment on above: Order Comment: 411.2 Performed By: #### L 300.3900 ####[facility] [address] [place], [place], [phone] PT Coag (PPP) [Time] 28.7 s High 11.7-14.9 [facility] Comment on above: Order Comment: 411.2 Performed By: #### L 300.3900 ####[facility] [address] [place], [address] Prothrombin timeOrdered By: Kvng Crisostomo on 05-15-2024 PT Coag (PPP) [Time] 28.7 s High 11.7-14.9 [facility] International normalized rat io (INR) calculationOrdered By: Carlos Cavazos on 05-12-2024 INR Coag (Bld) [Relative time] 2.1 {INR} [facility] Prothrombin Time w/INRon INR Coag (PPP) [Relative time] 2.1 {INR} Normal [facility] Comment on above: Order Comment: 411-2 Performed By: #### L 300.3900 ####[facility] [address] [place], [address] PT Coag (PPP) [Time] 24.1 s High 11.7-14.9 [facility] Comment on above: Order Comment: 411-2 Performed By: #### L 300.3900 ####[facility] [address] [place], [place], [phone] Prothrombin timeOrdered By: Carlos Cavazos on 05-12-2024 PT Coag (PPP) [Time] 24.1 s High 11.7-14.9 [facility] International normalized rat io (INR) calculationOrdered By: Kvng Crisostomo on 05-09-2024 INR Coag (Bld) [Relative time] 3.4 {INR} [facility] Prothrombin Time w/INRon INR Coag (PPP) [Relative time] 3.4 {INR} Normal [facility] Comment on above: Order Comment: 411.2 Performed By: #### L 300.3900 ####[facility] [address] [place], [place], [phone] PT Coag (PPP) [Time] 35.4 s High 11.7-14.9 [facility] Comment on above: Order Comment: 411.2 Performed By: #### L 300.3900 ####[facility] [address] [place], [place], [phone] Prothrombin timeOrdered By: Kvng Crisostomo on 05-09-2024 PT Coag (PPP) [Time] 35.4 s High 11.7-14.9 [facility] International normalized rat io (INR) calculationOrdered By: Kvng Crisostomo on 05-08-2024 INR Coag (Bld) [Relative time] 4.1 {INR} High [facility] Comment on above: CRITICAL VALUE CASEY D TO [facility]05/08/24 0950 Karen Jamison.RESULTS READ BACK BY SAME. Prothrombin Time w/INRon INR Coag (PPP) [Relative time] 4.1 {INR} Invalid Interpretation Code [facility] Comment on above: Order Comment: 411.2 Result Comment: CRIT ICAL VALUE CALLED TO [facility]BY [facility]05/08/24 0950 Karen Jamison.RESULTS READ BACK BY SAME. Performed By: #### L 300.3900 ####[facility] [address] [place], [address] PT Coag (PPP) [Time] 40.8 s High 11.7-14.9 [facility] Comment on above: Order Comment: 411.2 Performed By: #### L 300.3900 ####[facility] [address] [place], [address] Prothrombin timeOrdered By: Babbaljeet Andressa on 05-08-2024 PT Coag (PPP) [Time] 40.8 s High 11.7-14.9 [facility] International normalized rat io (INR) calculationOrdered By: Babbaljeet Crisostomo on 05-05-2024 INR Coag (Bld) [Relative time] 3.2 {INR} [facility] Prothrombin Time w/INRon INR Coag (PPP) [Relative time] 3.2 {INR} Normal [facility] Comment on above: Order Comment: 411.2 Performed By: #### L 300.3900 ####[facility] [address] [place], [address] PT Coag (PPP) [Time] 32.5 s High 11.7-14.9 [facility] Comment on above: Order Comment: 411.2 Performed By: #### L 300.3900 ####[facility] [address] [place], [address] Prothrombin timeOrdered By: Babbaljeet Crisostomo on 05-05-2024 PT Coag (PPP) [Time] 32.5 s High 11.7-14.9 [facility] International normalized rat io (INR) calculationOrdered By: Babbaljeet Crisostomo on 05-01-2024 INR Coag (Bld) [Relative time] 3.1 {INR} [facility] Prothrombin Time w/INRon INR Coag (PPP) [Relative time] 3.1 {INR} Normal [facility] Comment on above: Order Comment: 411.2 Performed By: #### L 300.3900 ####[facility] [address] [place], [address] PT Coag (PPP) [Time] 31.9 s High 11.7-14.9 [facility] Comment on above: Order Comment: 411.2 Performed By: #### L 300.3900 ####[facility] [address] [place], [address] Prothrombin timeOrdered By: Kvng Crisostomo on 05-01-2024 PT Coag (PPP) [Time] 31.9 s High 11.7-14.9 [facility] International normalized rat io (INR) calculationOrdered By: Carlos Cavazos on 04-28-2024 INR Coag (Bld) [Relative time] 2.6 {INR} [facility] Prothrombin Time w/INRon INR Coag (PPP) [Relative time] 2.6 {INR} Normal [facility] Comment on above: Order Comment: 411-2 Performed By: #### L 300.3900 ####[facility] [address] [place], [address] PT Coag (PPP) [Time] 27.3 s High 11.7-14.9 [facility] Comment on above: Order Comment: 411-2 Performed By: #### L 300.3900 ####[facility] [address] [place], [address] Prothrombin timeOrdered By: Carlos Cavazos on 04-28-2024 PT Coag (PPP) [Time] 27.3 s High 11.7-14.9 [facility] International normalized rat io (INR) calculationOrdered By: Kvng Crisostomo on 04-24-2024 INR Coag (Bld) [Relative time] 3.6 {INR} [facility] Prothrombin Time w/INRon INR Coag (PPP) [Relative time] 3.6 {INR} Normal [facility] Comment on above: Order Comment: 411.2 Performed By: #### L 300.3900 ####[facility] [address] [place], [address] PT Coag (PPP) [Time] 35.6 s High 11.7-14.9 [facility] Comment on above: Order Comment: 411.2 Performed By: #### L 300.3900 ####[facility] [address] [place], [address] Prothrombin timeOrdered By: Kvng Crisostomo on 04-24-2024 PT Coag (PPP) [Time] 35.6 s High 11.7-14.9 [facility] International normalized rat io (INR) calculationOrdered By: Carlos Cavazos on 04-21-2024 INR Coag (Bld) [Relative time] 2.8 {INR} [facility] Prothrombin Time w/INRon INR Coag (PPP) [Relative time] 2.8 {INR} Normal [facility] Comment on above: Order Comment: 411-2 Performed By: #### L 300.3900 ####[facility] [address] [place], [address] PT Coag (PPP) [Time] 29.4 s High 11.7-14.9 [facility] Comment on above: Order Comment: 411-2 Performed By: #### L 300.3900 ####[facility] [address] [place], [address] Prothrombin timeOrdered By: Carlos Cavazos on 04-21-2024 PT Coag (PPP) [Time] 29.4 s High 11.7-14.9 [facility] International normalized rat io (INR) calculationOrdered By: Kvng Crisostomo on 04-17-2024 INR Coag (Bld) [Relative time] 3.1 {INR} [facility] Prothrombin Time w/INRon INR Coag (PPP) [Relative time] 3.1 {INR} Normal [facility] Comment on above: Order Comment: 411.2 Performed By: #### L 300.3900 ####[facility] [address] [place], [place], [phone](553) Prothrombin timeOrdered By: Kvng Crisostomo on 04-17-2024 PT Coag (PPP) [Time] 31.3 s High 11.7-14.9 [facility] Comment on above: Order Comment: 411.2 Performed By: #### L 300.3900 ####[facility] [address] [place], [place], [phone](990) International normalized rat io (INR) calculationOrdered By: Kvng Crisostomo on 04-14-2024 INR Coag (Bld) [Relative time] 3.3 {INR} [facility] Prothrombin Time w/INRon INR Coag (PPP) [Relative time] 3.3 {INR} Normal [facility] Comment on above: Order Comment: 411.2 Performed By: #### L 300.3900 ####[facility] [address] [place], [place], [phone](168) PT Coag (PPP) [Time] 33.2 s High 11.7-14.9 [facility] Comment on above: Order Comment: 411.2 Performed By: #### L 300.3900 ####[facility] [address] [place], [place], [phone](355) Prothrombin timeOrdered By: Kvng Crisostomo on 04-14-2024 PT Coag (PPP) [Time] 33.2 s High 11.7-14.9 [facility] International normalized rat io (INR) calculationOrdered By: Kvng Crisostomo on 04-10-2024 INR Coag (Bld) [Relative time] 2.8 {INR} [facility] Prothrombin Time w/INRon INR Coag (PPP) [Relative time] 2.8 {INR} Normal [facility] Comment on above: Order Comment: 411.2 Performed By: #### L 300.3900 ####[facility] [address] [place], [address] PT Coag (PPP) [Time] 29.2 s High 11.7-14.9 [facility] Comment on above: Order Comment: 411.2 Performed By: #### L 300.3900 ####[facility] [address] [place], [address] Prothrombin timeOrdered By: Kvng Crisostomo on 04-10-2024 PT Coag (PPP) [Time] 29.2 s High 11.7-14.9 [facility] International normalized rat io (INR) calculationOrdered By: Carlos Cavazos on 04-07-2024 INR Coag (Bld) [Relative time] 2.7 {INR} [facility] Prothrombin Time w/INRon INR Coag (PPP) [Relative time] 2.7 {INR} Normal [facility] Comment on above: Order Comment: 411-2 Performed By: #### L 300.3900 ####[facility] [address] [place], [address] PT Coag (PPP) [Time] 28.1 s High 11.7-14.9 [facility] Comment on above: Order Comment: 411-2 Performed By: #### L 300.3900 ####[facility] [address] [place], [address] Prothrombin timeOrdered By: Carlos Cavazos on 04-07-2024 PT Coag (PPP) [Time] 28.1 s High 11.7-14.9 [facility] International normalized rat io (INR) calculationOrdered By: Kvng Crisostomo on 04-04-2024 INR Coag (Bld) [Relative time] 2.8 {INR} [facility] Prothrombin Time w/INRon INR Coag (PPP) [Relative time] 2.8 {INR} Normal [facility] Comment on above: Order Comment: 411.2 Performed By: #### L 300.3900 ####[facility] [address] [place], [address] PT Coag (PPP) [Time] 28.9 s High 11.7-14.9 [facility] Comment on above: Order Comment: 411.2 Performed By: #### L 300.3900 ####[facility] [address] [place], [address] Prothrombin timeOrdered By: Kvng Crisostomo on 04-04-2024 PT Coag (PPP) [Time] 28.9 s High 11.7-14.9 [facility] International normalized rat io (INR) calculationOrdered By: Carlos Cavazos on 03-31-2024 INR Coag (Bld) [Relative time] 2.6 {INR} [facility] Prothrombin Time w/INRon INR Coag (PPP) [Relative time] 2.6 {INR} Normal [facility] Comment on above: Order Comment: 411-2 Performed By: #### L 300.3900 ####[facility] [address] [place], [address] PT Coag (PPP) [Time] 27.3 s High 11.7-14.9 [facility] Comment on above: Order Comment: 411-2 Performed By: #### L 300.3900 ####[facility] [address] [place], [address] Prothrombin timeOrdered By: Carlos Cavazos on 03-31-2024 PT Coag (PPP) [Time] 27.3 s High 11.7-14.9 [facility] International normalized rat io (INR) calculationOrdered By: [employer] on 03-27-2024 INR Coag (Bld) [Relative time] 2.2 {INR} [facility] Prothrombin Time w/INRon INR Coag (PPP) [Relative time] 2.2 {INR} Normal [facility] Comment on above: Order Comment: 411.2 Performed By: #### L 300.3900 ####[facility] [address] [place], [address] PT Coag (PPP) [Time] 24.3 s High 11.7-14.9 [facility] Comment on above: Order Comment: 411.2 Performed By: #### L 300.3900 ####[facility] [address] [place], [address] Prothrombin timeOrdered By: [employer] on 03-27-2024 PT Coag (PPP) [Time] 24.3 s High 11.7-14.9 [facility] normalized rat io (INR) calculationOrdered By: Kvng Crisostomo on 03-24-2024 INR Coag (Bld) [Relative time] 1.8 {INR} [facility] Prothrombin Time w/INRon INR Coag (PPP) [Relative time] 1.8 {INR} Normal [facility] Comment on above: Order Comment: 411.2 Performed By: #### L 300.3900 ####[facility] [address] [place], [address] PT Coag (PPP) [Time] 20.7 s High 11.7-14.9 [facility] Comment on above: Order Comment: 411.2 Performed By: #### L [id number] ####[facility] [address] [place], [address] Prothrombin timeOrdered By: Kvng Crisostomo on 03-24-2024 PT Coag (PPP) [Time] 20.7 s High 11.7-14.9 [facility] normalized rat io (INR) calculationOrdered By: [employer] on 03-20-2024 INR Coag (Bld) [Relative time] 1.8 {INR} [facility] Prothrombin Time w/INRon INR Coag (PPP) [Relative time] 1.8 {INR} Normal [facility] Comment on above: Order Comment: 411.2 Performed By: #### L 300.3900 ####[facility] [address] [place], [address] PT Coag (PPP) [Time] 20.9 s High 11.7-14.9 [facility] Comment on above: Order Comment: 411.2 Performed By: #### L [id number] ####[facility] [address] [place], [address] Prothrombin timeOrdered By: [employer] on 03-20-2024 PT Coag (PPP) [Time] 20.9 s High 11.7-14.9 [facility] normalized rat io (INR) calculationOrdered By: Kvng Crisostomo on 03-19-2024 INR Coag (Bld) [Relative time] 2.4 {INR} [facility] Prothrombin Time w/INRon INR Coag (PPP) [Relative time] 2.4 {INR} Normal [facility] Comment on above: Order Comment: 411.2 Performed By: #### L [id number] ####[facility] [address] [place], [address] PT Coag (PPP) [Time] 26.4 s High 11.7-14.9 [facility] Comment on above: Order Comment: 411.2 Performed By: #### L [id number] ####[facility] [address] [place], [address] Prothrombin timeOrdered By: Kvng Crisostomo on 03-19-2024 PT Coag (PPP) [Time] 26.4 s High 11.7-14.9 [facility] normalized rat io (INR) calculationOrdered By: [employer] on 03-18-2024 INR Coag (Bld) [Relative time] 3.2 {INR} [facility] Prothrombin timeOrdered By: [employer] on 03-18-2024 PT Coag (PPP) [Time] 32.3 s High 11.7-14.9 [facility] normalized rat io (INR) calculationOrdered By: [employer] on 03-17-2024 INR Coag (Bld) [Relative time] 3.6 {INR} [facility] Prothrombin timeOrdered By: [employer] on 03-17-2024 PT Coag (PPP) [Time] 35.7 s High 11.7-14.9 [facility] normalized rat io (INR) calculationOrdered By: Carlos Cavazos on 03-14-2024 INR Coag (Bld) [Relative time] 3.5 {INR} [facility] Prothrombin timeOrdered By: Carlos Cavazos on 03-14-2024 PT Coag (PPP) [Time] 35.0 s High 11.7-14.9 [facility] normalized rat io (INR) calculationOrdered By: [employer] on 03-13-2024 INR Coag (Bld) [Relative time] 3.2 {INR} [facility] Prothrombin timeOrdered By: [employer] on 03-13-2024 PT Coag (PPP) [Time] 32.2 s High 11.7-14.9 [facility] Office Visiton 09-13-2023 Follow-up visit [id number] GurpreetTamie 1950 [address] Provider Department Center 09/13/2023 [id number]-FRQHMHREBECCA BUCK [facility] U[facility] None Family History Problem Relation Age of Onset Heart disease Father Cancer Mother Family Status - Relation Status Age at Father Mother Level of Service:27622 DE OFFICE/OUTPATIENT ESTABLISHED MOD MDM 30 MIN Reason for Visit and Comments: left flank pain [Other] - 8/10 pain when touched Normal [facility] Progress Noteon 09-13-2023 Progress Note Walt Moran [...] Hydrocephalus, adult (CMS/HCC) (HCC) Kidney stone Neuropathy [employer] (ventriculoperitoneal) shunt status Past Surgical History: [...] 03/02/2022 CR (more content not included)... Normal [facility] CT ABDOMEN PELVIS WO IV CONT Kelly 09-07-2023 CT ABDOMEN PELVIS WO IV CONTRAST [facility] Name[facility]W [facility] 1950 [id number] Exam Date/Time: 09/06/2023 18:14 Procedure: CT ABDOMEN PELVIS WO IV CONTRAST Ordering Provider: BCUK LAWRENCE Reason For Exam: Flank pain, kidney [...] a kidney stone; pt has a hernia [facility] 36on 08-29-2023 36 Lm on daughters vm t o advise them to call the number for the post manager to get clarification, and to call back with further questions [place] [address]on 08-27-2023 36 Yes, they will need to call the number given to them. [facility] 36 Please advise [address] 08-21-2023 36 Name of caller: Zion holt Contact phone number: [phone] Relationship to Patient: patient Provider: MD Quinn Practice: [facility] Chief Complaint/Reason for Call: Shanthi called [...] to reach out to call Maury Cedeño Telephone Directory Distributor Driver at [facility] [phone] to get clarifications. TEA did reach back out to [facility] and advised and provider Maury's #. Please advise Best time of day caller can be reached: Any Patient advised that office/PCP has 24-48 business hours to return their call: N/A Normal [facility] Laboratory - CoagulationOrde red By: Carlos Cavazos on 08-21-2023 INR Coag (Bld) [Relative time] 2.7 {INR} [facility] PT Coag (PPP) [Time] 28.9 s 11.7-14.9 [facility] Office Visiton 08-13-2023 Follow-up visit [id number] Tamie Sifuentes cheng Gonzalez 1950 [address] Provider Department Center 08/13/2023 [id number]-SOZHANREBECCA BUCK [facility] U[facility] None Family History Problem Relation Age of Onset Heart disease Father Cancer Mother Family Status - Relation Status Age at Father Mother Level of Service:32025 DE OFFICE/OUTPATIENT NEW MODERATE MDM 45 MINUTES Reason for Visit and Comments: New Patient [542] - Bilateral flank pain, hx of kidney stones Nephrolithiasis [[id number]] Normal [facility] Progress Noteon 08-13-2023 Progress Note Walt Moran [...] Hydrocephalus, adult (CMS/HCC) (HCC) Kidney stone 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 Normal [facility] No Panel InformationOrdered By: Carlos Cavazos on 08-03-2023 Levetiracetam (Keppra) Level 32.4 ug/mL 10.0-40.0 [facility] Comment on above: Performed at: [address] [id number] Director: Alpesh Vázquez MD, Phone: [phone] Basophil percentageOrdered B y: Carlos Cavazos on 07-20-2023 Chloride [Moles/Vol] 106 mmol/L 98-107 [facility] Glucose [Mass/Vol] 98 mg/dL 74-106 [facility] Hemoglobin (Bld) [Mass/Vol] 12.5 g/dL 13.0-16.5 [facility] Potassium [Moles/Vol] 4.3 mmol/L 3.5-5.1 [facility] Sodium [Moles/Vol] 135 mmol/L 136-145 [facility] WBC (Bld) [#/Vol] 13.0 10*3/uL 4.4-11.0 [facility] Determination of erythrocyte mean corpuscular volume (MCV)Ordered By: Carlos Cavazos on 07-20-2023 MCV (RBC) [Entitic vol] 86.2 fL 80-94 [facility] Erythrocyte distribution wid th ratioOrdered By: Carlos Cavazos on 07-20-2023 Erythrocyte distribution width (RBC) [Ratio] 15.3 % 11.6-14.6 [facility] Erythrocyte distribution wid th standard deviationOrdered By: Carlos Cavazos on 07-20-2023 Erythrocyte distribution width (RBC) [Entitic vol] 48.1 fL 35.1-43.9 [facility] Hematocrit Auto (Bld) [Volum e fraction]Ordered By: Carlos Cavazos on 07-20-2023 Hematocrit (Bld) [Volume fraction] 39.9 % 40-54 [facility] Laboratory - Chemistry and C hemistry - challengeOrdered By: Carlos Cavazos on 07-20-2023 CO2 [Moles/Vol] 24.0 mmol/L 21.0-32.0 [facility] Urea nitrogen/Creatinine [Mass ratio] 24.6 mg/mg 10-20 [facility] Laboratory - Hematology and Cell countsOrdered By: Carlos Cavazos on 07-20-2023 MCH (RBC) [Entitic mass] 27.0 pg 27.0-32.0 [facility] MCHC (RBC) [Mass/Vol] 31.3 g/dL 32-36 [facility] Platelet mean volume (Bld) [Entitic vol] 10.7 fL 6.2-12.0 [facility] Platelets (Bld) [#/Vol] 260 10*3/uL 150-450 [facility] No Panel InformationOrdered By: Carlos Cavazos on 03-15-2024 Estimated GFR (MDRD) Amer 114 mL/min >60 [facility] Comment on above: GFR Calc Estimated GFR (MDRD) Non-Af Amer 94 mL/min >60 [facility] Comment on above: Non- GFR Calc RBC Auto (Bld) [#/Vol]Ordere d By: Carlos Cavazos on 07-20-2023 RBC (Bld) [#/Vol] 4.63 10*6/uL 4.6-6.2 [facility] Serum or plasma calcium oral urement (mass/volume)Ordered By: Carlos Cavazos on 07-20-2023 Calcium [Mass/Vol] 8.6 mg/dL 8.5-10.1 [facility] Serum or plasma creatinine m easurement (mass/volume)Ordered By: Carlos Cavazos on 07-20-2023 Creatinine [Mass/Vol] 0.85 mg/dL 0.70-1.30 [facility] Comment on above: The validity of the calculated GFR & GFRAA in patients over 70 years has not been determined. Clinical correlation is essential. Serum or plasma urea nitroge n measurement (mass/volume)Ordered By: Carlos Cavazos on 07-20-2023 Urea nitrogen [Mass/Vol] 21 mg/dL 7-18 [facility] Thin prep Papanicolaou smear with manual screeningOrdered By: Carlos Cavazos on 07-20-2023 Thin prep Papanicolaou smear with manual screening 5 5-15 [facility] Basophil percentageOrdered B y: Carlos Cavazos on 07-18-2023 Chloride [Moles/Vol] 102 mmol/L 98-107 [facility] Glucose [Mass/Vol] 96 mg/dL 74-106 [facility] Hemoglobin (Bld) [Mass/Vol] 12.3 g/dL 13.0-16.5 [facility] Potassium [Moles/Vol] 4.2 mmol/L 3.5-5.1 [facility] Sodium [Moles/Vol] 136 mmol/L 136-145 [facility] WBC (Bld) [#/Vol] 14.7 10*3/uL 4.4-11.0 [facility] Determination of erythrocyte mean corpuscular volume (MCV)Ordered By: Carlos Cavazos on 07-18-2023 MCV (RBC) [Entitic vol] 85.4 fL 80-94 [facility] Erythrocyte distribution wid th ratioOrdered By: Carlos Cavazos on 07-18-2023 Erythrocyte distribution width (RBC) [Ratio] 15.1 % 11.6-14.6 [facility] Erythrocyte distribution wid th standard deviationOrdered By: Carlos Cavazos on 07-18-2023 Erythrocyte distribution width (RBC) [Entitic vol] 47.3 fL 35.1-43.9 [facility] Hematocrit Auto (Bld) [Volum e fraction]Ordered By: Carlos Cavazos on 07-18-2023 Hematocrit (Bld) [Volume fraction] 39.3 % 40-54 [facility] Laboratory - Chemistry and C hemistry - challengeOrdered By: Carlos Cavazos on 07-18-2023 CO2 [Moles/Vol] 27.0 mmol/L 21.0-32.0 [facility] Urea nitrogen/Creatinine [Mass ratio] 24.4 mg/mg 10-20 [facility] Laboratory - Hematology and Cell countsOrdered By: Carlos Cavazos on 07-18-2023 MCH (RBC) [Entitic mass] 26.7 pg 27.0-32.0 [facility] MCHC (RBC) [Mass/Vol] 31.3 g/dL 32-36 [facility] Platelet mean volume (Bld) [Entitic vol] 10.3 fL 6.2-12.0 [facility] Platelets (Bld) [#/Vol] 288 10*3/uL 150-450 [facility] No Panel InformationOrdered By: Carlos Cavazos on 07-18-2023 Estimated GFR (MDRD) Amer 113 mL/min >60 [facility] Comment on above: GFR Calc Estimated GFR (MDRD) Non-Af Amer 93 mL/min >60 [facility] Comment on above: Non- GFR Calc RBC Auto (Bld) [#/Vol]Ordere d By: Carlos Cavazos on 07-18-2023 RBC (Bld) [#/Vol] 4.60 10*6/uL 4.6-6.2 [facility] Serum or plasma calcium oral urement (mass/volume)Ordered By: Carlos Cavazos on 07-18-2023 Calcium [Mass/Vol] 8.9 mg/dL 8.5-10.1 [facility] Serum or plasma creatinine m easurement (mass/volume)Ordered By: Carlos Cavazos on 07-18-2023 Creatinine [Mass/Vol] 0.86 mg/dL 0.70-1.30 [facility] Comment on above: The validity of the calculated GFR & GFRAA in patients over 70 years has not been determined. Clinical correlation is essential. Serum or plasma urea nitroge n measurement (mass/volume)Ordered By: Carlos Cavazos on 07-18-2023 Urea nitrogen [Mass/Vol] 21 mg/dL 7-18 [facility] Thin prep Papanicolaou smear with manual screeningOrdered By: Carlos Cavazos on 07-18-2023 Thin prep Papanicolaou smear with manual screening 7 5-15 [facility] Basophil percentageOrdered B y: Carlos Cavazos on 07-17-2023 Basophil percentage 0-5 SEEN /hpf 0-5 [facility] Bilirubin Test strip Ql (U)O rdered By: Carlos Cavazos on 07-17-2023 Bilirubin Ql (U) Negative Negative [facility] Calcium oxalate crystals det ection in urine sediment by light microscopyOrdered By: Carlos Cavazos on 07-17-2023 Calcium oxalate crystals LM Ql (Urine sed) 1+ /hpf [facility] Culture, urineOrdered By: Sharif Crouch on 07-17-2023 Bacteria identified Cx Nom (U) Positive [facility] Ketones Test strip Ql (U)Ord ered By: Carlos Cavazos on 07-17-2023 Ketones Ql (U) Negative Negative [facility] Mucus LM Ql (Urine sed)Order ed By: Carlos Cavazos on 07-17-2023 Mucus Ql (Urine sed) 0 SEEN /hpf [facility] Nitrite Test strip Ql (U)Ord ered By: Carlos Cavazos on 07-17-2023 Nitrite Ql (U) Negative Negative [facility] No Panel InformationOrdered By: Carlos Cavazos on 07-17-2023 Urine RBC 0 SEEN /hpf 0-5 [facility] Protein Test strip Ql (U)Ord ered By: Carlos Cavazos on 07-17-2023 Protein Ql (U) Negative Negative [facility] Squamous epithelial cells de tection in urine sediment by light microscopyOrdered By: Carlos Cavazos on 07-17-2023 Epithelial cells.squamous LM Ql (Urine sed) 0-5 SEEN /hpf 0-5 [facility] Urine blood detectionOrdered By: Carlos Cavazos on 07-17-2023 RBC Ql (U) Negative Negative [facility] Urine clarityOrdered By: Ted Cavazos on 07-17-2023 Clarity (U) Clear Clear [facility] Urine color determinationOrd ered By: Carlos Cavazos on 07-17-2023 Color (U) Yellow Yellow [facility] Urine glucose detectionOrder ed By: Carlos Cavazos on 07-17-2023 Glucose Ql (U) Normal mg/dl Normal [facility] Urine leukocyte esterase det ection by dipstickOrdered By: Carlos Cavazos on 07-17-2023 Leukocyte esterase Test strip Ql (U) 25 /ul Negative [facility] Urine pHOrdered By: Carlos flores on 07-17-2023 pH (U) 6.0 [pH] 5.0 - 8.0 [facility] Urine sediment bacteria coun t by microscopy (number/high power field)Ordered By: Carlos Cavazos on 07-17-2023 Bacteria LM.HPF (Urine sed) [#/Area] 0 /[HPF] None Seen [facility] Urine specific gravity measu rementOrdered By: Carlos Cavazos on 07-17-2023 Specific gravity (U) [Rel density] 1.020 1.002-1.030 [facility] Urine urobilinogen measureme ntOrdered By: Carlos Cavazos on 07-17-2023 Urobilinogen Ql (U) Normal mg/dl Normal [facility] Absolute lymphocyte countOrd ered By: Carlos Cavazos on 07-16-2023 Lymphocytes Auto (Unsp spec) [#/Vol] 6.02 10*3/uL 0.83-4.51 [facility] Automated lymphocyte count a s percentage of total leukocytesOrdered By: Carlos Cavazos on 07-16-2023 Lymphocytes/100 WBC Auto (Unsp spec) 49.1 % 19-41 [facility] Basophil percentageOrdered B y: Carlos Cavazos on 07-16-2023 Basophils/100 WBC (Bld) 0.6 % 0-1 [facility] Chloride [Moles/Vol] 105 mmol/L 98-107 [facility] Eosinophils/100 WBC (Bld) 2.0 % 0-5 [facility] Glucose [Mass/Vol] 93 mg/dL 74-106 [facility] Hemoglobin (Bld) [Mass/Vol] 12.1 g/dL 13.0-16.5 [facility] Monocytes/100 WBC (Bld) 5.3 % 0-10 [facility] Neutrophils (Bld) [#/Vol] 5.2 10*3/uL 2.0-7.7 [facility] Neutrophils/100 WBC (Bld) 42.8 % 47-70 [facility] Potassium [Moles/Vol] 4.3 mmol/L 3.5-5.1 [facility] Sodium [Moles/Vol] 138 mmol/L 136-145 [facility] WBC (Bld) [#/Vol] 12.3 10*3/uL 4.4-11.0 [facility] Blood manual differential co mment interpretation (narrative result)Ordered By: Carlos Cavazos on 07-16-2023 Manual differential comment Shemar (Bld) [Interp] SCANNED [facility] Determination of erythrocyte mean corpuscular volume (MCV)Ordered By: Carlos Cavazos on 07-16-2023 MCV (RBC) [Entitic vol] 86.8 fL 80-94 [facility] Erythrocyte distribution wid th ratioOrdered By: Carlos Cavazos on 07-16-2023 Erythrocyte distribution width (RBC) [Ratio] 15.3 % 11.6-14.6 [facility] Erythrocyte distribution wid th standard deviationOrdered By: Carlos Cavazos on 07-16-2023 Erythrocyte distribution width (RBC) [Entitic vol] 48.9 fL 35.1-43.9 [facility] Hematocrit Auto (Bld) [Volum e fraction]Ordered By: Carlos Cavazos on 07-16-2023 Hematocrit (Bld) [Volume fraction] 38.7 % 40-54 [facility] Immature granulocytes/100 WB C Auto (Bld)Ordered By: Carlos Cavazos on 07-16-2023 Immature granulocytes/100 WBC (Bld) 0.200 % 0.0-0.9 [facility] Comment on above: IG% - Immature Granu locytes (promyelocytes, myelocytes and metamyelocytes) > 1% indicates that a LEFT SHIFT is Present. Laboratory - Chemistry and C hemistry - challengeOrdered By: Carlos Cavazos on 07-16-2023 CO2 [Moles/Vol] 25.0 mmol/L 21.0-32.0 [facility] Urea nitrogen/Creatinine [Mass ratio] 21.0 mg/mg 10-20 [facility] Laboratory - CoagulationOrde red By: Carlos Cavazos on 07-16-2023 INR Coag (Bld) [Relative time] 2.4 {INR} [facility] PT Coag (PPP) [Time] 25.7 s 11.7-14.9 [facility] Laboratory - Hematology and Cell countsOrdered By: Carlos Cavazos on 07-16-2023 MCH (RBC) [Entitic mass] 27.1 pg 27.0-32.0 [facility] MCHC (RBC) [Mass/Vol] 31.3 g/dL 32-36 [facility] Nucleated RBC/100 WBC (Bld) [Ratio] 0 % 0-5 [facility] Platelet mean volume (Bld) [Entitic vol] 10.5 fL 6.2-12.0 [facility] Platelets (Bld) [#/Vol] 289 10*3/uL 150-450 [facility] No Panel InformationOrdered By: Carlos Cavazos on 07-16-2023 Estimated GFR (MDRD) Amer 106 mL/min >60 [facility] Comment on above: GFR Calc Estimated GFR (MDRD) Non-Af Amer 88 mL/min >60 [facility] Comment on above: Non- GFR Calc Reactive Lymphocytes 1+ [facility] RBC Auto (Bld) [#/Vol]Ordere d By: Carlos Cavazos on 07-16-2023 RBC (Bld) [#/Vol] 4.46 10*6/uL 4.6-6.2 [facility] Serum or plasma calcium oral urement (mass/volume)Ordered By: Carlos Cavazos on 07-16-2023 Calcium [Mass/Vol] 9.0 mg/dL 8.5-10.1 [facility] Serum or plasma creatinine m easurement (mass/volume)Ordered By: Carlos Cavazos on 07-16-2023 Creatinine [Mass/Vol] 0.90 mg/dL 0.70-1.30 [facility] Comment on above: The validity of the calculated GFR & GFRAA in patients over 70 years has not been determined. Clinical correlation is essential. Serum or plasma urea nitroge n measurement (mass/volume)Ordered By: Carlos Cavazos on 07-16-2023 Urea nitrogen [Mass/Vol] 19 mg/dL 7-18 [facility] Thin prep Papanicolaou smear with manual screeningOrdered By: Carlos Cavazos on 07-16-2023 Thin prep Papanicolaou smear with manual screening 8 5-15 [facility] Absolute lymphocyte countOrd ered By: Carlos Cavazos on 07-13-2023 Lymphocytes Auto (Unsp spec) [#/Vol] 5.44 10*3/uL 0.83-4.51 [facility] Automated lymphocyte count a s percentage of total leukocytesOrdered By: Carlos Cavazos on 07-13-2023 Lymphocytes/100 WBC Auto (Unsp spec) 47.3 % 19-41 [facility] Basophil percentageOrdered B y: Carlos Cavazos on 07-13-2023 Basophils/100 WBC (Bld) 0.4 % 0-1 [facility] Chloride [Moles/Vol] 107 mmol/L 98-107 [facility] Eosinophils/100 WBC (Bld) 1.7 % 0-5 [facility] Glucose [Mass/Vol] 96 mg/dL 74-106 [facility] Hemoglobin (Bld) [Mass/Vol] 13.5 g/dL 13.0-16.5 [facility] Monocytes/100 WBC (Bld) 4.3 % 0-10 [facility] Neutrophils (Bld) [#/Vol] 5.3 10*3/uL 2.0-7.7 [facility] Neutrophils/100 WBC (Bld) 46.0 % 47-70 [facility] Potassium [Moles/Vol] 4.0 mmol/L 3.5-5.1 [facility] Sodium [Moles/Vol] 139 mmol/L 136-145 [facility] WBC (Bld) [#/Vol] 11.5 10*3/uL 4.4-11.0 [facility] Determination of erythrocyte mean corpuscular volume (MCV)Ordered By: Carlos Cavazos on 07-13-2023 MCV (RBC) [Entitic vol] 86.1 fL 80-94 [facility] Erythrocyte distribution wid th ratioOrdered By: Carlos Cavazos on 07-13-2023 Erythrocyte distribution width (RBC) [Ratio] 15.2 % 11.6-14.6 [facility] Erythrocyte distribution wid th standard deviationOrdered By: Carlos Cavazos on 07-13-2023 Erythrocyte distribution width (RBC) [Entitic vol] 48.0 fL 35.1-43.9 [facility] Hematocrit Auto (Bld) [Volum e fraction]Ordered By: Carlos Cavazos on 07-13-2023 Hematocrit (Bld) [Volume fraction] 42.2 % 40-54 [facility] Immature granulocytes/100 WB C Auto (Bld)Ordered By: Carlos Cavazos on 07-13-2023 Immature granulocytes/100 WBC (Bld) 0.300 % 0.0-0.9 [facility] Comment on above: IG% - Immature Granu locytes (promyelocytes, myelocytes and metamyelocytes) > 1% indicates that a LEFT SHIFT is Present. Laboratory - Chemistry and C hemistry - challengeOrdered By: Carlos Cavazos on 07-13-2023 CO2 [Moles/Vol] 26.0 mmol/L 21.0-32.0 [facility] Urea nitrogen/Creatinine [Mass ratio] 21.8 mg/mg 10-20 [facility] Laboratory - Hematology and Cell countsOrdered By: Carlos Cavazos on 07-13-2023 MCH (RBC) [Entitic mass] 27.6 pg 27.0-32.0 [facility] MCHC (RBC) [Mass/Vol] 32.0 g/dL 32-36 [facility] Nucleated RBC/100 WBC (Bld) [Ratio] 0 % 0-5 [facility] Platelet mean volume (Bld) [Entitic vol] 10.1 fL 6.2-12.0 [facility] Platelets (Bld) [#/Vol] 279 10*3/uL 150-450 [facility] No Panel InformationOrdered By: Carlos Cavazos on 07-13-2023 Estimated GFR (MDRD) Amer 118 mL/min >60 [facility] Comment on above: GFR Calc Estimated GFR (MDRD) Non-Af Amer 98 mL/min >60 [facility] Comment on above: Non- GFR Calc Levetiracetam (Keppra) Level 25.5 ug/mL 10.0-40.0 [facility] Comment on above: Performed at: [facility] [address] [id number] Director: Alpesh Vázquez MD, Phone: [phone] RBC Auto (Bld) [#/Vol]Ordere d By: Carlos Cavazos on 07-13-2023 RBC (Bld) [#/Vol] 4.90 10*6/uL 4.6-6.2 [facility] Serum or plasma calcium oral urement (mass/volume)Ordered By: Carlos Cavazos on 07-13-2023 Calcium [Mass/Vol] 9.1 mg/dL 8.5-10.1 [facility] Serum or plasma creatinine m easurement (mass/volume)Ordered By: Carlos Cavazos on 07-13-2023 Creatinine [Mass/Vol] 0.82 mg/dL 0.70-1.30 [facility] Comment on above: The validity of the calculated GFR & GFRAA in patients over 70 years has not been determined. Clinical correlation is essential. Serum or plasma urea nitroge n measurement (mass/volume)Ordered By: Carlos Cavazos on 07-13-2023 Urea nitrogen [Mass/Vol] 18 mg/dL 7-18 [facility] Thin prep Papanicolaou smear with manual screeningOrdered By: Carlos Cavazos on 07-13-2023 Thin prep Papanicolaou smear with manual screening 6 5-15 [facility] No Panel InformationOrdered By: Carlos Cavazos on 07-12-2023 Valproic Acid (Depakene) Level < 3 ug/mL 50-100 [facility] Laboratory - CoagulationOrde red By: Carlos Cavazos on 07-05-2023 INR Coag (Bld) [Relative time] 2.4 {INR} [facility] PT Coag (PPP) [Time] 26.3 s 11.7-14.9 [facility] Laboratory - CoagulationOrde red By: Carlos Cavazos on 07-02-2023 INR Coag (Bld) [Relative time] 1.5 {INR} [facility] PT Coag (PPP) [Time] 18.5 s 11.7-14.9 [facility] Laboratory - CoagulationOrde red By: Carlos Cavazos on 06-28-2023 INR Coag (Bld) [Relative time] 1.7 {INR} [facility] PT Coag (PPP) [Time] 20.5 s 11.7-14.9 [facility] 36on 06-25-2023 36 [facility] called in stating appt scheduled 07/10/23 [place] has to be made further out, pt being transported by cot. Changed appt to 08/13/23 per [facility] only avail time for transport, first avail with DR Buck at 10:00 AM. [facility] Laboratory - CoagulationOrde red By: Carlos Cavazos on 06-25-2023 INR Coag (Bld) [Relative time] 3.8 {INR} [facility] PT Coag (PPP) [Time] 38.2 s 11.7-14.9 [facility] - CoagulationOrde red By: Carlos Cavazos on 06-21-2023 INR Coag (Bld) [Relative time] 3.2 {INR} [facility] PT Coag (PPP) [Time] 32.9 s 11.7-14.9 [facility] No Panel InformationOrdered By: Carlos Cavazos on 06-13-2023 Valproic Acid (Depakene) Level < 3 ug/mL 50-100 [facility] Laboratory - CoagulationOrde red By: Carlos Cavazos on 06-06-2023 PT Coag (PPP) [Time] 30.5 s 11.7-14.9 [facility] Platelet poor plasma interna tional normalized ratio (INR)Ordered By: Carlos Cavazos on 06-06-2023 INR Coag (PPP) [Relative time] 2.9 {INR} [facility] International normalized rat io (INR) calculationOrdered By: Carlos Cavazos on 05-23-2023 INR Coag (PPP) [Relative time] 2.6 {INR} [facility] - CoagulationOrde red By: Carlos Cavazos on 05-23-2023 PT Coag (PPP) [Time] 27.7 s 11.7-14.9 [facility] - CoagulationOrde red By: Carlos Cavazos on 05-09-2023 PT Coag (PPP) [Time] 24.1 s 11.7-14.9 [facility] Whole blood international no rmalized ratio (INR)Ordered By: Carlos Cavazos on 05-09-2023 INR Coag (Bld) [Relative time] 2.1 {INR} [facility] - CoagulationOrde red By: Carlos Cavazos on 04-23-2023 PT Coag (PPP) [Time] 26.4 s 11.7-14.9 [facility] Whole blood international no rmalized ratio (INR)Ordered By: Carlos Cavazos on 04-23-2023 INR Coag (Bld) [Relative time] 2.4 {INR} [facility] INR in Blood by Coagulation assayOrdered By: Carlos Cavazos on 04-09-2023 INR Coag (Bld) [Relative time] 2.1 {INR} [facility] - CoagulationOrde red By: Carlos Cavazos on 04-09-2023 PT Coag (PPP) [Time] 23.9 s 11.7-14.9 [facility] INR in Blood by Coagulation assayOrdered By: Carlos Cavazos on 04-02-2023 INR Coag (Bld) [Relative time] 2.2 {INR} [facility] - CoagulationOrde red By: Carlos Cavazos on 04-02-2023 PT Coag (PPP) [Time] 24.5 s 11.7-14.9 [facility] INR in Blood by Coagulation assayOrdered By: Carlos Cavazos on 03-26-2023 INR Coag (Bld) [Relative time] 1.7 {INR} [facility] - CoagulationOrde red By: Carlos Cavazos on 03-26-2023 PT Coag (PPP) [Time] 19.9 s 11.7-14.9 [facility] INR in Blood by Coagulation assayOrdered By: Carlos Cavazos on 03-22-2023 INR Coag (Bld) [Relative time] 1.3 {INR} [facility] - CoagulationOrde red By: Carlos Cavazos on 03-22-2023 PT Coag (PPP) [Time] 16.4 s 11.7-14.9 [facility] INR in Blood by Coagulation assayOrdered By: Carlos Cavazos on 03-08-2023 INR Coag (Bld) [Relative time] 2.0 {INR} [facility] - CoagulationOrde red By: Carlos Cavazos on 03-08-2023 PT Coag (PPP) [Time] 22.5 s 11.7-14.9 [facility] - CoagulationOrde red By: Carlos Cavazos on 02-22-2023 INR Coag (Bld) [Relative time] 2.2 {INR} [facility] Comment on above: Critical Value > 4.0 Whole blood prothrombin time Ordered By: Carlos Cavazos on 02-22-2023 PT Coag (Bld) [Time] 24.0 s 11.7-14.9 [facility] INR in Blood by Coagulation assayOrdered By: Cliff Bruner on 02-15-2023 INR Coag (Bld) [Relative time] 2.0 {INR} [facility] - CoagulationOrde red By: Cliff Bruner on 02-15-2023 PT Coag (PPP) [Time] 22.8 s 11.7-14.9 [facility] INR in Blood by Coagulation assayOrdered By: Carlos Cavazos on 02-08-2023 INR Coag (Bld) [Relative time] 2.1 {INR} [facility] - CoagulationOrde red By: Carlos Cavazos on 02-08-2023 PT Coag (PPP) [Time] 23.5 s 11.7-14.9 [facility] INR in Blood by Coagulation assayOrdered By: Carlos Cavazos on 01-31-2023 INR Coag (Bld) [Relative time] 2.0 {INR} [facility] - CoagulationOrde red By: Carlos Cavazos on 01-31-2023 PT Coag (PPP) [Time] 22.4 s 11.7-14.9 [facility] - CoagulationOrde red By: Carlos Cavazos on 01-29-2023 INR Coag (Bld) [Relative time] 1.8 {INR} [facility] Comment on above: Critical Value > 4.0 Whole blood prothrombin time Ordered By: Carlos Cavazos on 01-29-2023 PT Coag (Bld) [Time] 19.9 s 11.7-14.9 [facility] INR in Blood by Coagulation assayOrdered By: Carlos Cavazos on 01-26-2023 INR Coag (Bld) [Relative time] 1.5 {INR} [facility] - CoagulationOrde red By: Carlos Cavazos on 01-26-2023 PT Coag (PPP) [Time] 18.3 s 11.7-14.9 [facility] INR in Blood by Coagulation assayOrdered By: Carlos Cavazos on 01-24-2023 INR Coag (Bld) [Relative time] 1.3 {INR} [facility] - CoagulationOrde red By: Carlos Cavazos on 01-24-2023 PT Coag (PPP) [Time] 16.2 s 11.7-14.9 [facility] Basophil percentageOrdered B y: Carlos Cavazos on 01-22-2023 Basophil percentage 0 SEEN /hpf 0-5 [facility] Bilirubin Test strip Ql (U)O rdered By: Carlos Cavazos on 01-22-2023 Bilirubin Ql (U) Negative Negative [facility] Calcium oxalate crystals det ection in urine sediment by light microscopyOrdered By: Carlos Cavazos on 01-22-2023 Calcium oxalate crystals LM Ql (Urine sed) 1+ /hpf [facility] Culture, urineOrdered By: Sharif Crouch on 01-22-2023 Bacteria identified Cx Nom (U) Positive [facility] Ketones Test strip Ql (U)Ord ered By: Carlos Cavazos on 01-22-2023 Ketones Ql (U) Negative Negative [facility] Mucus LM Ql (Urine sed)Order ed By: Carlos Cavazos on 01-22-2023 Mucus Ql (Urine sed) 1+ /hpf [facility] Nitrite Test strip Ql (U)Ord ered By: Carlos Cavazos on 01-22-2023 Nitrite Ql (U) Negative Negative [facility] Protein Test strip Ql (U)Ord ered By: Carlos Cavazos on 01-22-2023 Protein Ql (U) Negative Negative [facility] Squamous epithelial cells de tection in urine sediment by light microscopyOrdered By: Carlos Cavazos on 01-22-2023 Epithelial cells.squamous LM Ql (Urine sed) 0 SEEN /hpf 0-5 [facility] Urine blood detectionOrdered By: Carlos Cavazos on 01-22-2023 RBC Ql (U) Negative Negative [facility] RBC Ql (U) 0 SEEN /hpf 0-5 [facility] Urine clarityOrdered By: Ted Cavazos on 01-22-2023 Clarity (U) Sl. Cloudy Clear [facility] Urine color determinationOrd ered By: Carlos Cavazos on 01-22-2023 Color (U) Yellow Yellow [facility] Urine glucose detectionOrder ed By: Carlos Cavazos on 01-22-2023 Glucose Ql (U) Normal mg/dl Normal [facility] Urine leukocyte esterase det ection by dipstickOrdered By: Carlos Cavazos on 01-22-2023 Leukocyte esterase Test strip Ql (U) Negative Negative [facility] Urine pHOrdered By: Carlos flores on 01-22-2023 pH (U) 5.0 [pH] 5.0 - 8.0 [facility] Urine sediment bacteria coun t by microscopy (number/high power field)Ordered By: Carlos Cavazos on 01-22-2023 Bacteria LM.HPF (Urine sed) [#/Area] 2 /[HPF] None Seen [facility] Urine specific gravity measu rementOrdered By: Carlos Cavazos on 01-22-2023 Specific gravity (U) [Rel density] 1.025 1.002-1.030 [facility] Urobilinogen Auto test strip Ql (U)Ordered By: Carlos Cavazos on 01-22-2023 Urobilinogen Ql (U) Normal mg/dl Normal [facility] INR in Blood by Coagulation assayOrdered By: Carlos Cavazos on 01-10-2023 INR Coag (Bld) [Relative time] 2.0 {INR} [facility] - CoagulationOrde red By: Carlos Cavazos on 01-10-2023 PT Coag (PPP) [Time] 22.6 s 11.7-14.9 [facility] INR in Blood by Coagulation assayOrdered By: Carlos Cavazos on 12-27-2022 INR Coag (Bld) [Relative time] 2.1 {INR} [facility] - CoagulationOrde red By: Carlos Cavazos on 12-27-2022 PT Coag (PPP) [Time] 24.1 s 11.7-14.9 [facility] INR in Blood by Coagulation assayOrdered By: Carlos Cavazos on 12-21-2022 INR Coag (Bld) [Relative time] 2.4 {INR} [facility] - CoagulationOrde red By: Carlos Cavazos on 12-21-2022 PT Coag (PPP) [Time] 26.7 s 11.7-14.9 [facility] - CoagulationOrde red By: Carlos Cavazos on 12-14-2022 INR Coag (Bld) [Relative time] 2.3 {INR} [facility] Comment on above: Critical Value > 4.0 Whole blood prothrombin time Ordered By: Carlos Cavazos on 12-14-2022 PT Coag (Bld) [Time] 25.2 s 11.7-14.9 [facility] Laboratory - CoagulationOrde red By: Carlos Cavazos on 12-07-2022 INR Coag (Bld) [Relative time] 2.5 {INR} [facility] Comment on above: Critical Value > 4.0 Whole blood prothrombin time Ordered By: Carlos Cavazos on 12-07-2022 PT Coag (Bld) [Time] 26.9 s 11.7-14.9 [facility] Amorphous sediment detection in urine sediment by light microscopyOrdered By: Carlos Cavazos on 07-21-2023 Amorphous sediment LM Ql (Urine sed) 1+ [facility] Basophil percentageOrdered B y: Carlos Cavazos on 11-24-2022 Basophil percentage 0 SEEN /hpf 0-5 [facility] Bilirubin [Mass/Vol] 0.30 mg/dL 0.20-1.00 [facility] Comment on above: For patients on eltr ombopag therapy, use of Dimension Vickery TBIL is not recommended. Chloride [Moles/Vol] 107 mmol/L 98-107 [facility] Glucose [Mass/Vol] 95 mg/dL 74-106 [facility] Potassium [Moles/Vol] 4.2 mmol/L 3.5-5.1 [facility] Protein [Mass/Vol] 6.9 g/dL 6.4-8.2 [facility] Sodium [Moles/Vol] 138 mmol/L 136-145 [facility] WBC (Bld) [#/Vol] 10.4 10*3/uL 4.4-11.0 [facility] Bilirubin Test strip Ql (U)O rdered By: Carlos Cavazos on 11-24-2022 Bilirubin Ql (U) Negative Negative [facility] Blood erythrocytes count (nu mber/volume)Ordered By: Carlos Cavazos on 11-24-2022 RBC (Bld) [#/Vol] 4.44 10*6/uL 4.6-6.2 [facility] Blood hemoglobin measurement (mass/volume)Ordered By: Carlos Cavazos on 11-24-2022 Hemoglobin (Bld) [Mass/Vol] 11.8 g/dL 13.0-16.5 [facility] Blood platelet mean volumeOr dered By: Carlos Cavazos on 11-24-2022 Platelet mean volume (Bld) [Entitic vol] 9.7 fL 6.2-12.0 [facility] Calcium oxalate crystals det ection in urine sediment by light microscopyOrdered By: Carlos Cavazos on 11-24-2022 Calcium oxalate crystals LM Ql (Urine sed) RARE /hpf [facility] Culture, urineOrdered By: Sharif Crouch on 11-24-2022 Bacteria identified Cx Nom (U) Positive [facility] Determination of erythrocyte mean corpuscular volume (MCV)Ordered By: Carlos Cavazos on 11-24-2022 MCV (RBC) [Entitic vol] 84.7 fL 80-94 [facility] Hematocrit Auto (Bld) [Volum e fraction]Ordered By: Carlos Cavazos on 11-24-2022 Hematocrit (Bld) [Volume fraction] 37.6 % 40-54 [facility] Ketones Test strip Ql (U)Ord ered By: Carlos Cavazos on 11-24-2022 Ketones Ql (U) Negative Negative [facility] Laboratory - Chemistry and C hemistry - challengeOrdered By: Carlos Cavazos on 11-24-2022 ALP [Catalytic activity/Vol] 103 U/L 45-117 [facility] ALT [Catalytic activity/Vol] 14 U/L 16-61 [facility] CO2 [Moles/Vol] 26.0 mmol/L 21.0-32.0 [facility] Globulin (S) [Mass/Vol] 4.0 g/dL 2.2-4.2 [facility] Urea nitrogen/Creatinine [Mass ratio] 24.1 mg/mg 10-20 [facility] Laboratory - Hematology and Cell countsOrdered By: Carlos Cavazos on 11-24-2022 Erythrocyte distribution width (RBC) [Entitic vol] 49.4 fL 35.1-43.9 [facility] Erythrocyte distribution width (RBC) [Ratio] 16.0 % 11.6-14.6 [facility] MCH (RBC) [Entitic mass] 26.6 pg 27.0-32.0 [facility] MCHC Auto (RBC) [Mass/Vol]Or dered By: Carlos Cavazos on 11-24-2022 MCHC (RBC) [Mass/Vol] 31.4 g/dL 32-36 [facility] Mucus LM Ql (Urine sed)Order ed By: Carlos Cavazos on 11-24-2022 Mucus Ql (Urine sed) 0 SEEN /hpf [facility] Nitrite Test strip Ql (U)Ord ered By: Carlos Cavazos on 11-24-2022 Nitrite Ql (U) Negative Negative [facility] No Panel InformationOrdered By: Carlos Cavazos on 11-24-2022 Estimated GFR (MDRD) Amer 118 mL/min >60 [facility] Comment on above: GFR Calc Estimated GFR (MDRD) Non-Af Amer 97 mL/min >60 [facility] Comment on above: Non- GFR Calc Platelets bldOrdered By: Ted Cavazos on 11-24-2022 Platelets (Bld) [#/Vol] 309 10*3/uL 150-450 [facility] Protein Test strip Ql (U)Ord ered By: Carlos Cavazos on 11-24-2022 Protein Ql (U) Negative Negative [facility] Serum or plasma albumin oral urement (mass/volume)Ordered By: Carlos Cavazos on 11-24-2022 Albumin [Mass/Vol] 2.9 g/dL 3.2-5.0 [facility] Serum or plasma albumin/glob ulin mass ratioOrdered By: Carlos Cavazos on 11-24-2022 Albumin/Globulin [Mass ratio] 0.7 {ratio} 0.9-2.4 [facility] Serum or plasma calcium oral urement (mass/volume)Ordered By: Carlos Cavazos on 11-24-2022 Calcium [Mass/Vol] 8.7 mg/dL 8.5-10.1 [facility] Serum or plasma creatinine m easurement (mass/volume)Ordered By: Carlos Cavazos on 11-24-2022 Creatinine [Mass/Vol] 0.83 mg/dL 0.70-1.30 [facility] Comment on above: The validity of the calculated GFR & GFRAA in patients over 70 years has not been determined. Clinical correlation is essential. Serum or plasma urea nitroge n measurement (mass/volume)Ordered By: Carlos Cavazos on 11-24-2022 Urea nitrogen [Mass/Vol] 20 mg/dL 7-18 [facility] Squamous epithelial cells de tection in urine sediment by light microscopyOrdered By: Carlos Cavazos on 11-24-2022 Epithelial cells.squamous LM Ql (Urine sed) 0 SEEN /hpf 0-5 [facility] Thin prep Papanicolaou smear with manual screeningOrdered By: Carlos Cavazos on 11-24-2022 Thin prep Papanicolaou smear with manual screening 10 U/L 15-37 [facility] Thin prep Papanicolaou smear with manual screening 5 5-15 [facility] Urine blood detectionOrdered By: Carlos Cavazos on 11-24-2022 RBC Ql (U) Negative Negative [facility] RBC Ql (U) 0 SEEN /hpf 0-5 [facility] Urine clarityOrdered By: Ted Cavazos on 11-24-2022 Clarity (U) Clear Clear [facility] Urine color determinationOrd ered By: Carlos Cavazos on 11-24-2022 Color (U) Yellow Yellow [facility] Urine glucose detectionOrder ed By: Carlos Cavazos on 11-24-2022 Glucose Ql (U) Normal mg/dl Normal [facility] Urine leukocyte esterase det ection by dipstickOrdered By: Carlos Cavazos on 11-24-2022 Leukocyte esterase Test strip Ql (U) Negative Negative [facility] Urine pHOrdered By: Carlos flores on 11-24-2022 pH (U) 7.0 [pH] 5.0 - 8.0 [facility] Urine sediment bacteria coun t by microscopy (number/high power field)Ordered By: Carlos Cavazos on 11-24-2022 Bacteria LM.HPF (Urine sed) [#/Area] 0 /[HPF] None Seen [facility] Urine specific gravity measu rementOrdered By: Carlos Cavazos on 11-24-2022 Specific gravity (U) [Rel density] 1.010 1.002-1.030 [facility] Urobilinogen Auto test strip Ql (U)Ordered By: Carlos Cavazos on 11-24-2022 Urobilinogen Ql (U) Normal mg/dl Normal [facility] Laboratory - CoagulationOrde red By: Carlos Cavazos on 11-23-2022 INR Coag (Bld) [Relative time] 2.2 {INR} [facility] Comment on above: Critical Value > 4.0 Whole blood prothrombin time Ordered By: Carlos Cavazos on 11-23-2022 PT Coag (Bld) [Time] 24.5 s 11.7-14.9 [facility] Basophil percentageOrdered B y: Carlos Cavazos on 11-22-2022 Chloride [Moles/Vol] 105 mmol/L 98-107 [facility] Glucose [Mass/Vol] 91 mg/dL 74-106 [facility] Potassium [Moles/Vol] 4.1 mmol/L 3.5-5.1 [facility] Sodium [Moles/Vol] 138 mmol/L 136-145 [facility] WBC (Bld) [#/Vol] 12.0 10*3/uL 4.4-11.0 [facility] Blood erythrocytes count (nu mber/volume)Ordered By: Carlos Cavazos on 11-22-2022 RBC (Bld) [#/Vol] 4.65 10*6/uL 4.6-6.2 [facility] Blood hemoglobin measurement (mass/volume)Ordered By: Carlos Cavazos on 11-22-2022 Hemoglobin (Bld) [Mass/Vol] 12.4 g/dL 13.0-16.5 [facility] Blood platelet mean volumeOr dered By: Carlos Cavazos on 11-22-2022 Platelet mean volume (Bld) [Entitic vol] 10.3 fL 6.2-12.0 [facility] Determination of erythrocyte mean corpuscular volume (MCV)Ordered By: Carlos Cavazos on 11-22-2022 MCV (RBC) [Entitic vol] 86.0 fL 80-94 [facility] Hematocrit Auto (Bld) [Volum e fraction]Ordered By: Carlos Cavazos on 11-22-2022 Hematocrit (Bld) [Volume fraction] 40.0 % 40-54 [facility] Laboratory - Chemistry and C hemistry - challengeOrdered By: Carlos Cavazos on 11-22-2022 CO2 [Moles/Vol] 25.0 mmol/L 21.0-32.0 [facility] Urea nitrogen/Creatinine [Mass ratio] 23.6 mg/mg 10-20 [facility] Laboratory - Hematology and Cell countsOrdered By: Carlos Cavazos on 11-22-2022 Erythrocyte distribution width (RBC) [Entitic vol] 50.0 fL 35.1-43.9 [facility] Erythrocyte distribution width (RBC) [Ratio] 15.9 % 11.6-14.6 [facility] MCH (RBC) [Entitic mass] 26.7 pg 27.0-32.0 [facility] MCHC Auto (RBC) [Mass/Vol]Or dered By: Carlos Cavazos on 11-22-2022 MCHC (RBC) [Mass/Vol] 31.0 g/dL 32-36 [facility] No Panel InformationOrdered By: Carlos Cavazos on 11-22-2022 Estimated GFR (MDRD) Amer 115 mL/min >60 [facility] Comment on above: GFR Calc Estimated GFR (MDRD) Non-Af Amer 95 mL/min >60 [facility] Comment on above: Non- GFR Calc Platelets bldOrdered By: Pet er Kenny on 11-22-2022 Platelets (Bld) [#/Vol] 320 10*3/uL 150-450 [facility] Serum or plasma calcium oral urement (mass/volume)Ordered By: Carlos Cavazos on 11-22-2022 Calcium [Mass/Vol] 8.7 mg/dL 8.5-10.1 [facility] Serum or plasma creatinine m easurement (mass/volume)Ordered By: Carlos Cavazos on 11-22-2022 Creatinine [Mass/Vol] 0.85 mg/dL 0.70-1.30 [facility] Comment on above: The validity of the calculated GFR & GFRAA in patients over 70 years has not been determined. Clinical correlation is essential. Serum or plasma urea nitroge n measurement (mass/volume)Ordered By: Carlos Cavazos on 11-22-2022 Urea nitrogen [Mass/Vol] 20 mg/dL 7-18 [facility] Thin prep Papanicolaou smear with manual screeningOrdered By: Carlos Cavazos on 11-22-2022 Thin prep Papanicolaou smear with manual screening 8 5-15 [facility] Laboratory - CoagulationOrde red By: Carlos Cavazos on 11-09-2022 INR Coag (Bld) [Relative time] 2.1 {INR} [facility] Comment on above: Critical Value > 4.0 Whole blood prothrombin time Ordered By: Carlos Cavazos on 11-09-2022 PT Coag (Bld) [Time] 22.6 s 11.7-14.9 [facility] - CoagulationOrde red By: Carlos Cavazos on 10-26-2022 INR Coag (Bld) [Relative time] 2.6 {INR} [facility] Comment on above: Critical Value > 4.0 Whole blood prothrombin time Ordered By: Carlos Cavazos on 10-26-2022 PT Coag (Bld) [Time] 28.5 s 11.7-14.9 [facility] - CoagulationOrde red By: Carlos Cavazos on 10-12-2022 INR Coag (Bld) [Relative time] 2.4 {INR} [facility] Comment on above: Critical Value > 4.0 Whole blood prothrombin time Ordered By: Carlos Cavazos on 10-12-2022 PT Coag (Bld) [Time] 26.4 s 11.7-14.9 [facility] - CoagulationOrde red By: Carlos Cavazos on 10-05-2022 INR Coag (Bld) [Relative time] 2.6 {INR} [facility] Comment on above: Critical Value > 4.0 Whole blood prothrombin time Ordered By: Carlos Cavazos on 10-05-2022 PT Coag (Bld) [Time] 28.0 s 11.7-14.9 [facility] - CoagulationOrde red By: Carlos Cavazos on 09-28-2022 INR Coag (Bld) [Relative time] 2.7 {INR} [facility] Comment on above: Critical Value > 4.0 Whole blood prothrombin time Ordered By: Carlos Cavazos on 09-28-2022 PT Coag (Bld) [Time] 28.9 s 11.7-14.9 [facility] - CoagulationOrde red By: Carlos Cavazos on 09-14-2022 INR Coag (Bld) [Relative time] 2.5 {INR} [facility] Comment on above: Critical Value > 4.0 Whole blood prothrombin time Ordered By: Carlos Cavazos on 09-14-2022 PT Coag (Bld) [Time] 27.4 s 11.7-14.9 [facility] - CoagulationOrde red By: Carlos Cavazos on 08-31-2022 INR Coag (Bld) [Relative time] 2.3 {INR} [facility] Comment on above: Critical Value > 4.0 Whole blood prothrombin time Ordered By: Carlos Cavazos on 08-31-2022 PT Coag (Bld) [Time] 25.4 s 11.7-14.9 [facility] Basophil percentageOrdered B y: Carlos Cavazos on 08-23-2022 Chloride [Moles/Vol] 108 mmol/L 98-107 [facility] Glucose [Mass/Vol] 86 mg/dL 74-106 [facility] Potassium [Moles/Vol] 4.3 mmol/L 3.5-5.1 [facility] Sodium [Moles/Vol] 136 mmol/L 136-145 [facility] WBC (Bld) [#/Vol] 10.0 10*3/uL 4.4-11.0 [facility] Blood erythrocytes count (nu mber/volume)Ordered By: Carlos Cavazos on 08-23-2022 RBC (Bld) [#/Vol] 4.77 10*6/uL 4.6-6.2 [facility] Blood hemoglobin measurement (mass/volume)Ordered By: Carlos Cavazos on 08-23-2022 Hemoglobin (Bld) [Mass/Vol] 12.5 g/dL 13.0-16.5 [facility] Blood platelet mean volumeOr dered By: Carlos Cavazos on 08-23-2022 Platelet mean volume (Bld) [Entitic vol] 11.0 fL 6.2-12.0 [facility] Determination of erythrocyte mean corpuscular volume (MCV)Ordered By: Carlos Cavazos on 08-23-2022 MCV (RBC) [Entitic vol] 84.3 fL 80-94 [facility] Hematocrit Auto (Bld) [Volum e fraction]Ordered By: Carlos Cavazos on 08-23-2022 Hematocrit (Bld) [Volume fraction] 40.2 % 40-54 [facility] Laboratory - Chemistry and C hemistry - challengeOrdered By: Carlos Cavazos on 08-23-2022 CO2 [Moles/Vol] 24.0 mmol/L 21.0-32.0 [facility] Urea nitrogen/Creatinine [Mass ratio] 22.8 mg/mg 10-20 [facility] - Hematology and Cell countsOrdered By: Carlos Cavazos on 08-23-2022 Erythrocyte distribution width (RBC) [Entitic vol] 49.3 fL 35.1-43.9 [facility] Erythrocyte distribution width (RBC) [Ratio] 16.0 % 11.6-14.6 [facility] MCH (RBC) [Entitic mass] 26.2 pg 27.0-32.0 [facility] MCHC Auto (RBC) [Mass/Vol]Or dered By: Carlos Cavazos on 08-23-2022 MCHC (RBC) [Mass/Vol] 31.1 g/dL 32-36 [facility] No Panel InformationOrdered By: Carlos Cavazos on 08-23-2022 Estimated GFR (MDRD) Amer 134 mL/min >60 [facility] Comment on above: GFR Calc Estimated GFR (MDRD) Non-Af Amer 110 mL/min >60 [facility] Comment on above: Non- GFR Calc Platelets bldOrdered By: Ted Cavazos on 08-23-2022 Platelets (Bld) [#/Vol] 268 10*3/uL 150-450 [facility] Serum or plasma calcium oral urement (mass/volume)Ordered By: Carlos Cavazos on 08-23-2022 Calcium [Mass/Vol] 9.1 mg/dL 8.5-10.1 [facility] Serum or plasma creatinine m easurement (mass/volume)Ordered By: Carlos Cavazos on 08-23-2022 Creatinine [Mass/Vol] 0.74 mg/dL 0.70-1.30 [facility] Comment on above: The validity of the calculated GFR & GFRAA in patients over 70 years has not been determined. Clinical correlation is essential. Serum or plasma urea nitroge n measurement (mass/volume)Ordered By: Carlos Cavazos on 08-23-2022 Urea nitrogen [Mass/Vol] 17 mg/dL 7-18 [facility] Thin prep Papanicolaou smear with manual screeningOrdered By: Carlos Cavazos on 08-23-2022 Thin prep Papanicolaou smear with manual screening 4 5-15 [facility] Laboratory - CoagulationOrde red By: Carlos Cavazos on 08-17-2022 INR Coag (Bld) [Relative time] 2.8 {INR} [facility] Comment on above: Critical Value > 4.0 Whole blood prothrombin time Ordered By: Carlos Cavazos on 08-17-2022 PT Coag (Bld) [Time] 29.6 s 11.7-14.9 [facility] Laboratory - CoagulationOrde red By: Carlos Cavazos on 08-14-2022 INR Coag (Bld) [Relative time] 3.9 {INR} [facility] Comment on above: Critical Value > 4.0 Whole blood prothrombin time Ordered By: Carlos Cavaozs on 08-14-2022 PT Coag (Bld) [Time] 40.6 s 11.7-14.9 [facility] Laboratory - CoagulationOrde red By: Carlos Cavazos on 07-31-2022 INR Coag (Bld) [Relative time] 2.5 {INR} [facility] Comment on above: Critical Value > 4.0 Whole blood prothrombin time Ordered By: Carlos Cavazos on 07-31-2022 PT Coag (Bld) [Time] 26.8 s 11.7-14.9 [facility] INR in Blood by Coagulation assayOrdered By: Carlos Cavazos on 07-24-2022 INR Coag (Bld) [Relative time] 2.3 {INR} [facility] - CoagulationOrde red By: Carlos Cavazos on 07-24-2022 PT Coag (PPP) [Time] 24.7 s 11.7-14.9 [facility] Laboratory - CoagulationOrde red By: Carlos Cavazos on 07-20-2022 INR Coag (Bld) [Relative time] 1.9 {INR} [facility] Comment on above: Critical Value > 4.0 Whole blood prothrombin time Ordered By: Carlos Cavazos on 07-20-2022 PT Coag (Bld) [Time] 20.6 s 11.7-14.9 [facility] Laboratory - CoagulationOrde red By: Carlos Cavazos on 07-17-2022 INR Coag (Bld) [Relative time] 1.3 {INR} [facility] Comment on above: Critical Value > 4.0 Whole blood prothrombin time Ordered By: Carlos Cavazos on 07-17-2022 PT Coag (Bld) [Time] 15.9 s 11.7-14.[address] [facility] Basophil percentageOrdered B y: Carlos Cavazos on 07-11-2022 Chloride [Moles/Vol] 105 mmol/L 98-107 [facility] Glucose [Mass/Vol] 97 mg/dL 74-106 [facility] Potassium [Moles/Vol] 3.9 mmol/L 3.5-5.1 [facility] Sodium [Moles/Vol] 140 mmol/L 136-145 [facility] WBC (Bld) [#/Vol] 9.4 10*3/uL 4.4-11.0 [facility] Blood erythrocytes count (nu mber/volume)Ordered By: Carlos Cavazos on 07-11-2022 RBC (Bld) [#/Vol] 4.66 10*6/uL 4.6-6.2 [facility] Blood hemoglobin measurement (mass/volume)Ordered By: Carlos Cavazos on 07-11-2022 Hemoglobin (Bld) [Mass/Vol] 12.0 g/dL 13.0-16.5 [facility] Blood platelet mean volumeOr dered By: Carlos Cavazos on 07-11-2022 Platelet mean volume (Bld) [Entitic vol] 10.4 fL 6.2-12.0 [facility] Determination of erythrocyte mean corpuscular volume (MCV)Ordered By: Carlos Cavazos on 07-11-2022 MCV (RBC) [Entitic vol] 83.7 fL 80-94 [facility] Hematocrit Auto (Bld) [Volum e fraction]Ordered By: Carlos Cavazos on 07-11-2022 Hematocrit (Bld) [Volume fraction] 39.0 % 40-54 [facility] - Chemistry and C hemistry - challengeOrdered By: Carlos Cavazos on 07-11-2022 CO2 [Moles/Vol] 28.0 mmol/L 21.0-32.0 [facility] Urea nitrogen/Creatinine [Mass ratio] 23.0 mg/mg 10-20 [facility] - Hematology and Cell countsOrdered By: Carlos Cavazos on 07-11-2022 Erythrocyte distribution width (RBC) [Entitic vol] 51.0 fL 35.1-43.9 [facility] Erythrocyte distribution width (RBC) [Ratio] 16.8 % 11.6-14.6 [facility] MCH (RBC) [Entitic mass] 25.8 pg 27.0-32.0 [facility] MCHC Auto (RBC) [Mass/Vol]Or dered By: Carlos Cavazos on 07-11-2022 MCHC (RBC) [Mass/Vol] 30.8 g/dL 32-36 [facility] No Panel InformationOrdered By: Carlos Cavazos on 07-11-2022 Estimated GFR (MDRD) Amer 126 mL/min >60 [facility] Comment on above: GFR Calc Estimated GFR (MDRD) Non-Af Amer 104 mL/min >60 [facility] Comment on above: Non- GFR Calc Platelets bldOrdered By: Ted Cavazos on 07-11-2022 Platelets (Bld) [#/Vol] 291 10*3/uL 150-450 [facility] Serum or plasma calcium oral urement (mass/volume)Ordered By: Carlos Cavazos on 07-11-2022 Calcium [Mass/Vol] 9.2 mg/dL 8.5-10.1 [facility] Serum or plasma creatinine m easurement (mass/volume)Ordered By: Carlos Cavazos on 07-11-2022 Creatinine [Mass/Vol] 0.78 mg/dL 0.70-1.30 [facility] Comment on above: The validity of the calculated GFR & GFRAA in patients over 70 years has not been determined. Clinical correlation is essential. Serum or plasma urea nitroge n measurement (mass/volume)Ordered By: Carlos Cavazos on 07-11-2022 Urea nitrogen [Mass/Vol] 18 mg/dL 7-18 [facility] Thin prep Papanicolaou smear with manual screeningOrdered By: Carlos Cavazos on 07-11-2022 Thin prep Papanicolaou smear with manual screening 7 5-15 [facility] - CoagulationOrde red By: Carlos Cavazos on 07-10-2022 INR Coag (Bld) [Relative time] 1.8 {INR} [facility] Comment on above: Critical Value > 4.0 Whole blood prothrombin time Ordered By: Carlos Cavazos on 07-10-2022 PT Coag (Bld) [Time] 21.0 s 11.7-14.9 [facility] - CoagulationOrde red By: Carlos Cavazos on 07-03-2022 INR Coag (Bld) [Relative time] 1.9 {INR} [facility] Comment on above: Critical Value > 4.0 Whole blood prothrombin time Ordered By: Carlos Cavazos on 07-03-2022 PT Coag (Bld) [Time] 22.7 s 11.7-14.9 [facility] INR in Blood by Coagulation assayOrdered By: Carlos Cavazos on 06-27-2022 INR Coag (Bld) [Relative time] 2.9 {INR} [facility] - CoagulationOrde red By: Carlos Cavazos on 06-27-2022 PT Coag (PPP) [Time] 29.9 s 11.7-14.9 [facility] - CoagulationOrde red By: Carlos Cavazos on 06-13-2022 INR Coag (Bld) [Relative time] 2.1 {INR} [facility] Comment on above: Critical Value > 4.0 Whole blood prothrombin time Ordered By: Carlos Cavazos on 06-13-2022 PT Coag (Bld) [Time] 24.4 s 11.7-14.9 [facility] - CoagulationOrde red By: Carlos Cavazos on 06-06-2022 INR Coag (Bld) [Relative time] 1.5 {INR} [facility] Comment on above: Critical Value > 4.0 Whole blood prothrombin time Ordered By: Carlos Cavazos on 06-06-2022 PT Coag (Bld) [Time] 18.4 s 11.7-14.9 [facility] Basophil percentageOrdered B y: Carlos Cavazos on 05-30-2022 Chloride [Moles/Vol] 105 mmol/L 98-107 [facility] Glucose [Mass/Vol] 95 mg/dL 74-106 [facility] Potassium [Moles/Vol] 3.9 mmol/L 3.5-5.1 [facility] Sodium [Moles/Vol] 140 mmol/L 136-145 [facility] WBC (Bld) [#/Vol] 7.6 10*3/uL 4.4-11.0 [facility] Blood erythrocytes count (nu mber/volume)Ordered By: Carlos Cavazos on 05-30-2022 RBC (Bld) [#/Vol] 4.79 10*6/uL 4.6-6.2 [facility] Blood hemoglobin measurement (mass/volume)Ordered By: Carlos Cavazos on 05-30-2022 Hemoglobin (Bld) [Mass/Vol] 12.1 g/dL 13.0-16.5 [facility] Blood platelet mean volumeOr dered By: Carlos Cavazos on 05-30-2022 Platelet mean volume (Bld) [Entitic vol] 10.4 fL 6.2-12.0 [facility] Determination of erythrocyte mean corpuscular volume (MCV)Ordered By: Carlos Cavazos on 05-30-2022 MCV (RBC) [Entitic vol] 82.5 fL 80-94 [facility] Hematocrit Auto (Bld) [Volum e fraction]Ordered By: Carlos Cavazos on 05-30-2022 Hematocrit (Bld) [Volume fraction] 39.5 % 40-54 [facility] INR in Blood by Coagulation assayOrdered By: Carlos Cavazos on 05-30-2022 INR Coag (Bld) [Relative time] 1.9 {INR} [facility] - Chemistry and C hemistry - challengeOrdered By: Carlos Cavazos on 05-30-2022 CO2 [Moles/Vol] 27.0 mmol/L 21.0-32.0 [facility] Urea nitrogen/Creatinine [Mass ratio] 21.4 mg/mg 10-20 [facility] - CoagulationOrde red By: Carlos Cavazos on 05-30-2022 PT Coag (PPP) [Time] 21.6 s 11.7-14.9 [facility] - Hematology and Cell countsOrdered By: Carlos Cavazos on 05-30-2022 Erythrocyte distribution width (RBC) [Entitic vol] 48.8 fL 35.1-43.9 [facility] Erythrocyte distribution width (RBC) [Ratio] 16.2 % 11.6-14.6 [facility] MCH (RBC) [Entitic mass] 25.3 pg 27.0-32.0 [facility] Auto (RBC) [Mass/Vol]Or dered By: Carlos Cavazos on 05-30-2022 MCHC (RBC) [Mass/Vol] 30.6 g/dL 32-36 [facility] No Panel InformationOrdered By: Carlos Cavazos on 05-30-2022 Estimated GFR (MDRD) Amer 133 mL/min >60 [facility] Comment on above: GFR Calc Estimated GFR (MDRD) Non-Af Amer 110 mL/min >60 [facility] Comment on above: Non- GFR Calc Platelets bldOrdered By: Ted Cavazos on 05-30-2022 Platelets (Bld) [#/Vol] 308 10*3/uL 150-450 [facility] Serum or plasma calcium oral urement (mass/volume)Ordered By: Carlos Cavazos on 05-30-2022 Calcium [Mass/Vol] 9.1 mg/dL 8.5-10.1 [facility] Serum or plasma creatinine m easurement (mass/volume)Ordered By: Carlos Cavazos on 05-30-2022 Creatinine [Mass/Vol] 0.75 mg/dL 0.70-1.30 [facility] Comment on above: The validity of the calculated GFR & GFRAA in patients over 70 years has not been determined. Clinical correlation is essential. Serum or plasma urea nitroge n measurement (mass/volume)Ordered By: Carlos Cavazos on 05-30-2022 Urea nitrogen [Mass/Vol] 16 mg/dL 7-18 [facility] Thin prep Papanicolaou smear with manual screeningOrdered By: Carlos Cavazos on 05-30-2022 Thin prep Papanicolaou smear with manual screening 8 5-15 [facility] - CoagulationOrde red By: Carlos Cavazos on 05-16-2022 INR Coag (Bld) [Relative time] 2.6 {INR} [facility] Comment on above: Critical Value > 4.0 Whole blood prothrombin time Ordered By: Carlos Cavazos on 05-16-2022 PT Coag (Bld) [Time] 29.9 s 11.7-14.9 [facility] - CoagulationOrde red By: Carlos Cavazos on 05-02-2022 INR Coag (Bld) [Relative time] 2.0 {INR} [facility] Comment on above: Critical Value > 4.0 Whole blood prothrombin time Ordered By: Carlos Cavazos on 05-02-2022 PT Coag (Bld) [Time] 23.2 s 11.7-14.9 [facility] - CoagulationOrde red By: Carlos Cavazos on 04-27-2022 INR Coag (Bld) [Relative time] 2.7 {INR} [facility] Comment on above: Critical Value > 4.0 Whole blood prothrombin time Ordered By: Carlos Cavazos on 04-27-2022 PT Coag (Bld) [Time] 31.1 s 11.7-14.9 [facility] - CoagulationOrde red By: Carlos Cavazos on 04-26-2022 INR Coag (Bld) [Relative time] 2.8 {INR} [facility] Comment on above: Critical Value > 4.0 Whole blood prothrombin time Ordered By: Carlos Cavazos on 04-26-2022 PT Coag (Bld) [Time] 32.6 s 11.7-14.9 [facility] - CoagulationOrde red By: Carlos Cavazos on 04-11-2022 INR Coag (Bld) [Relative time] 2.9 {INR} [facility] Comment on above: Critical Value > 4.0 Whole blood prothrombin time Ordered By: Carlos Cavazos on 04-11-2022 PT Coag (Bld) [Time] 32.8 s 11.7-14.9 [facility] - CoagulationOrde red By: Carlos Cavazos on 03-28-2022 INR Coag (Bld) [Relative time] 2.1 {INR} [facility] Comment on above: Critical Value > 4.0 Whole blood prothrombin time Ordered By: Carlos Cavazos on 03-28-2022 PT Coag (Bld) [Time] 24.8 s 11.7-14.9 [facility] - CoagulationOrde red By: Carlos Cavazos on 03-23-2022 INR Coag (Bld) [Relative time] 1.7 {INR} [facility] Comment on above: Critical Value > 4.0 Whole blood prothrombin time Ordered By: Carlos Cavazos on 03-23-2022 PT Coag (Bld) [Time] 20.9 s 11.7-14.9 [facility] - CoagulationOrde red By: Carlos Cavazos on 03-16-2022 INR Coag (Bld) [Relative time] 1.7 {INR} [facility] Comment on above: Critical Value > 4.0 Whole blood prothrombin time Ordered By: Carlos Cavazos on 03-16-2022 PT Coag (Bld) [Time] 19.9 s 11.7-14.9 [facility] - CoagulationOrde red By: Carlos Cavazos on 03-09-2022 INR Coag (Bld) [Relative time] 1.8 {INR} [facility] Comment on above: Critical Value > 4.0 Whole blood prothrombin time Ordered By: Carlos Cavazos on 03-09-2022 PT Coag (Bld) [Time] 21.9 s 11.7-14.9 [facility] - CoagulationOrde red By: Carlos Cavazos on 03-06-2022 INR Coag (Bld) [Relative time] 1.7 {INR} [facility] Comment on above: Critical Value > 4.0 Whole blood prothrombin time Ordered By: Carlos Cavazos on 03-06-2022 PT Coag (Bld) [Time] 20.0 s 11.7-14.9 [facility] CBC with Auto Differentialon 03-02-2022 [...] [facility] Test Performed by [facility], [address] [place] [address] [facility] [address] HEAD WO CONTRASTon 2021 Patient Name: ANDREW SIFUENTES Computed Tomography ACCESSION EXAM DATE/TIME PROCEDURE ORDERING PROVIDER [id number] 03/02/2022 13:[address] Head or Brain w/o [id number] -LANETTE MUNGUIA CPT code 73325 Reason For Exam (CT Head or Brain [...] tubes (parent active on the left for [employer] shunting and disconnected on the right). 2. No definite evidence of acute infarction (MRI more sensitive), mass lesion, nor hemorrhage. Report Dictated on --- Final --- Dictated: 03/02/2022 1:35 pm Dictating Physician: MD GUTIERREZ WILLIAM Signed Date and Time: 03/02/2022 1:39 pm Signed by: MD GUTIERREZ WILLIAM Transcribed Date and Time: 03/02/2022 1:35 [facility] Anant Gutierrez MD - 03/02/2022 [id number] ACCESSION EXAM DATE/TIME PROCEDURE ORDERING PROVIDER [id number] 03/02/2022 13:[address] Head or Brain w/o [id number] -LANETTE MUNGUIA Contrast CPT code 35675 Reason For Exam (CT Head or Brain [...] tubes (parent active on the left for [employer] shunting and disconnected on the right). [...] Tomography ACCESSION EXAM DATE/TIME PROCEDURE ORDERING PROVIDER [id number] 03/02/2022 13:[address] Head or Brain w/o [id number] -LANETTE MUNGUIA Contrast CPT code 34216 Reason For Exam (CT Head or Brain [...] tubes (parent active on the left for [employer] shunting and disconnected on the right). 2. No definite evidence of acute infarction (MRI more sensitive), mass lesion, nor hemorrhage. Report Dictated on Final Dictated: 03/02/2022 1:35 pm Dictating Physician: MD GUTIERREZ WILLIAM Signed Date and Time: 03/02/2022 1:39 pm Signed by: MD GUTIERREZ WILLIAM Transcribed Date and Time: 03/02/2022 1:35 Normal [facility] Comp Metabolic Panelon 03-02 Calcium [Mass/Vol] 9.1 mg/dL Normal 8.4-10.4 [facility] Comment on above: Performed By: #### H EMDF PT, CMP3 ####[id number] [place], [place] ALP [Catalytic activity/Vol] 128 U/L High 38-126 [facility] Comment on above: Performed By: #### H BIMALF PT, CMP3 ####[id number] [place], [place] ALT [Catalytic activity/Vol] 12 U/L Normal 0-49 [facility] Comment on above: Result Comment: The ALT test is performed by an updated assay method. Please note that the reference intervals have been changed and are now sex specific. Performed By: #### H EMDF PT, CMP3 ####[id number] [place], [place] Anion gap [Moles/Vol] 7 mmol/L Normal 3-13 [facility] Comment on above: Performed By: #### H EMDF, PT, CMP3 ####[id number] [place], [place] AST [Catalytic activity/Vol] 24 U/L Normal 15-46 [facility] Comment on above: Performed By: #### H BIMALF PT, CMP3 ####[facility] [id number] [place], [place] Bilirubin [Mass/Vol] 0.4 mg/dL Normal 0.2-1.3 [facility] Comment on above: Performed By: #### H EMDF PT, CMP3 ####[facility] [id number], [place] CO2 [Moles/Vol] 27 mmol/L Normal 22-30 [facility] Comment on above: Performed By: #### H BIMALF PT, CMP3 ####[facility] [id number], [place] Glucose [Mass/Vol] 109 mg/dL High 70-100 [facility] Comment on above: Performed By: #### H BIMALF PT, CMP3 ####[facility] [id number], [place] Protein [Mass/Vol] 8.1 g/dL Normal 6.3-8.2 [facility] Comment on above: Performed By: #### H TIERA PT, CMP3 ####[facility] [id number] [place], [place] Urea nitrogen [Mass/Vol] 22 mg/dL High 7-17 [facility] Comment on above: Performed By: #### H BIMALF PT, CMP3 ####[facility] [id number] [place], [place] Creatinine [Mass/Vol] 0.63 mg/dL Normal 0.52-1.25 [facility] Comment on above: Performed By: #### H EMDF PT, CMP3 ####[facility] [employer] [id number] [place], [place] eGFR OTHER > 90.0 Normal >60 [facility] Comment on above: Result Comment: KDIG [...] Performed By: #### H CHRISTEL MOTT CMP3 ####[address] GFR/1.73 sq M.predicted among blacks MDRD (S/P/Bld) [Vol rate/Area] mL/min/{1.73_m2} Normal >60 [facility] Comment on above: Performed By: #### H CHRISTEL MOTT CMP3 ####[address] Albumin [Mass/Vol] 4.1 g/dL Normal 3.5-5.0 [facility] Comment on above: Performed By: #### H CHRISTEL MOTT CMP3 ####[address] Chloride [Moles/Vol] 106 mmol/L Normal 98-107 [facility] Comment on above: Performed By: #### H CHRISTEL MOTT CMP3 ####[address] Potassium [Moles/Vol] 3.7 mmol/L Normal 3.5-5.1 [facility] Comment on above: Performed By: #### H CHRISTEL MOTT CMP3 ####[address] Sodium [Moles/Vol] 140 mmol/L Normal 135-145 [facility] Comment on above: Performed By: #### H CHRISTEL MOTT CMP3 ####[address] [id number] [facility] 03-02-2022 Albumin [Mass/Vol] 4.1 g/dL 3.5 - [...] P INF mL/min [facility] EGFR IF NonAfrican Macanese mL/min 60 - PINF mL/min [facility] Comment [...] [facility] Test Performed by [facility], [address] [place] [id number] [facility] ED Provider Noteon 2 ED Provider Note [facility] EMERGENCY DEPT EMERGENCY DEPARTMENT ENCOUNTER Pt Name: Andrew Sifuentes Birthdate 1950 Date of evaluation: 03/02/2022 Provider: Lanette Munguia DO CHIEF COMPLAINT Chief Complaint Patient presents with Fall Patient had unwitnessed fall at [facility] landed on butt. Is on thinners, denies LOC, denies head injury has no complaints at this time HISTORY OF PRESENT ILLNESS (Location/Symptom, Timing/Onset, Context/Setting, Quality, Duration, Modifying Factors, Severity) Note limiting factors. I wore a N-95 mask for the entirety of this encounter. Andrew Sifuentes is a 71 y.o. male medical history of hydrocephalus status post [employer] shunt, history of DVT on Coumadin who [facility] following mechanical fall. Patient rolled out of bed. Unwitnessed. Found down on ground by nursing staff. Nonambulatory at baseline. Patient reports he did not hit his head. Has no acute complaints. Denies any pain or traumatic injury. 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 Normal [facility] Hemogram w/ Autodiffon 03-02 Abs Baso Cnt 0.2 10*3/uL Normal 0.0-0.2 [facility] Comment on above: Performed By: #### H TIERA PT, CMP3 ####[facility] [place] [address] Abs Neutrophile Cnt 10.7 10*3/uL High 1.8-7.0 [facility] Comment on above: Performed By: #### H TIERA PT, CMP3 ####[facility] [place] [address] Basophils/100 WBC (Bld) 1.1 % Normal 0.0-2.0 [facility] Comment on above: Performed By: #### H TIERA PT, CMP3 ####[facility] [place] [address] Eosinophils (Bld) [#/Vol] 0.1 10*3/uL Normal 0.0-0.5 [facility] Comment on above: Performed By: #### H BIMALF PT, CMP3 ####[id number] [place] [address] Eosinophils/100 WBC (Bld) 0.5 % Low 1.0-6.0 [facility] Comment on above: Performed By: #### H EMDF PT, CMP3 ####[address] [address] Granulocytes/100 WBC (Bld) 73.9 % Normal 40.0-80.0 [facility] Comment on above: Performed By: #### H EMDF PT, CMP3 ####[address] [address] Lymphocytes (Bld) [#/Vol] 3.0 10*3/uL Normal 1.0-4.3 [facility] Comment on above: Performed By: #### H EMDHeydi PT, CMP3 ####[address] [address] Lymphocytes/100 WBC (Bld) 20.6 % Normal 20.0-40.0 [facility] Comment on above: Performed By: #### H EMDHeydi PT, CMP3 ####[address] [address] Monocytes (Bld) [#/Vol] 0.6 10*3/uL Normal 0.0-0.8 [facility] Comment on above: Performed By: #### H EMDF PT, CMP3 ####[address] [address] Monocytes/100 WBC (Bld) 3.9 % Normal 2.0-10.0 [facility] Comment on above: Performed By: #### H EMDHeydi PT, CMP3 ####[address] [address] Platelet mean volume (Bld) [Entitic vol] 8.5 fL Normal 7.4-12.4 [facility] Comment on above: Result Comment: MPV is a calculated measurement using platelet volume ratio. Performed By: #### H EMDF PT, CMP3 ####[id number] [place], [place] Platelets (Bld) [#/Vol] 411 10*3/uL Normal 140-440 [facility] Comment on above: Performed By: #### H EMDF, PT, CMP3 ####[address] Erythrocyte distribution width (RBC) [Ratio] 17.0 % High 11.5-14.5 [facility] Comment on above: Performed By: #### H EMDF, PT, CMP3 ####[address] Hematocrit (Bld) [Volume fraction] 37.4 % Low 40.0-52.0 [facility] Comment on above: Performed By: #### H EMDF, PT, CMP3 ####[address] Hemoglobin (Bld) [Mass/Vol] 12.1 g/dL Low 13.0-18.0 [facility] Comment on above: Performed By: #### H EMDF, PT, CMP3 ####[address] MCH (RBC) [Entitic mass] 26.2 pg Normal 26.0-34.0 [facility] Comment on above: Performed By: #### H EMDF, PT, CMP3 ####[address] MCHC 32.3 % Normal 32.0-36.0 [facility] Comment on above: Performed By: #### H EMDF, PT, CMP3 ####[address] MCV (RBC) [Entitic vol] 81.1 fL Normal 80.0-98.0 [facility] Comment on above: Performed By: #### H EMDF, PT, CMP3 ####[address] RBC (Bld) [#/Vol] 4.61 10*6/uL Normal 4.40-5.90 [facility] Comment on above: Performed By: #### H BIMALF PT, CMP3 ####[address] WBC (Bld) [#/Vol] 14.5 10*3/uL High 3.6-10.7 [facility] Comment on above: Performed By: #### H EMDF PT, CMP3 ####[address] Prothrombin Timeon INR 1.9 High 0.9-1.1 [facility] Comment on above: Result Comment: Harry [...] Performed By: #### H TIERA PT, CMP3 ####[address] PT Coag (PPP) [Time] 18.9 s High 9.0-12.0 [facility] Comment on above: Result Comment: . Performed By: #### H BIMALF PT, CMP3 ####[address] Protime-INRon 03-02-2022 INR Coag (Bld) [Relative time] 1.9 {INR} High [facility] Comment on above: Recommended Anticoag [...] and review of laboratory results Abnormal [facility] PT Coag (PPP) [Time] 18.9 s High 9.0 - 12.0 s [facility] Comment on above: . Test Performed by [facility], [address] [place] [id number] [facility] Laboratory - CoagulationOrde red By: Carlos Cavazos on 02-20-2022 INR Coag (Bld) [Relative time] 2.6 {INR} [facility] Comment on above: Critical Value > 4.0 Whole blood prothrombin time Ordered By: Carlos Cavazos on 02-20-2022 PT Coag (Bld) [Time] 30.1 s 11.7-14.9 [facility] Laboratory - CoagulationOrde red By: Carlos Cavazos on 02-13-2022 INR Coag (Bld) [Relative time] 2.3 {INR} [facility] Comment on above: Critical Value > 4.0 Whole blood prothrombin time Ordered By: Carlos Cavazos on 02-13-2022 PT Coag (Bld) [Time] 26.7 s 11.7-14.9 [facility] Laboratory - CoagulationOrde red By: Carlos Cavazos on 02-06-2022 INR Coag (Bld) [Relative time] 2.3 {INR} [facility] Comment on above: Critical Value > 4.0 Whole blood prothrombin time Ordered By: Carlos Cavazos on 02-06-2022 PT Coag (Bld) [Time] 26.6 s 11.7-14.9 [facility] Laboratory - Coagulationon 0 01-30-2022 INR Coag (Bld) [Relative time] 1.7 {INR} [facility] Work Phone: Comment on above: Critical Value > 4.0 Whole blood prothrombin time on 01-30-2022 PT Coag (Bld) [Time] 20.1 s 11.7-14.9 [facility] Work Phone: Laboratory - Coagulationon 0 01-26-2022 INR Coag (Bld) [Relative time] 1.8 {INR} [facility] Work Phone: Comment on above: Critical Value > 4.0 Whole blood prothrombin time on 01-26-2022 PT Coag (Bld) [Time] 21.8 s 11.7-14.9 [facility] Work Phone: Laboratory - Coagulationon 0 01-19-2022 INR Coag (Bld) [Relative time] 2.2 {INR} [facility] Work Phone: Comment on above: Critical Value > 4.0 Whole blood prothrombin time on 01-19-2022 PT Coag (Bld) [Time] 25.7 s 11.7-14.9 [facility] Work Phone: INR in Blood by Coagulation assayon 01-10-2022 INR Coag (Bld) [Relative time] 1.8 {INR} [facility] Work Phone: Laboratory - Coagulationon 0 01-10-2022 PT Coag (PPP) [Time] 20.9 s 11.7-14.9 [facility] Work Phone: Basophil percentageon 2021 Chloride [Moles/Vol] 107 mmol/L 98-107 [facility] Work Phone: Glucose [Mass/Vol] 82 mg/dL 74-106 [facility] Work Phone: Potassium [Moles/Vol] 3.4 mmol/L 3.5-5.1 [facility] Work Phone: Sodium [Moles/Vol] 143 mmol/L 136-145 [facility] Work Phone: WBC (Bld) [#/Vol] 10.4 10*3/uL 4.4-11.0 [facility] Work Phone: Blood erythrocytes count (nu mber/volume)on 01-05-2022 RBC (Bld) [#/Vol] 4.27 10*6/uL 4.6-6.2 [facility] Work Phone: Blood hemoglobin measurement (mass/volume)on 01-05-2022 Hemoglobin (Bld) [Mass/Vol] 11.2 g/dL 13.0-16.5 [facility] Work Phone: Blood platelet mean volumeon 01-05-2022 Platelet mean volume (Bld) [Entitic vol] 10.3 fL 6.2-12.0 [facility] Work Phone: Determination of erythrocyte mean corpuscular volume (MCV)on 01-05-2022 MCV (RBC) [Entitic vol] 84.8 fL 80-94 [facility] Work Phone: Hematocrit Auto (Bld) [Volum e fraction]on 01-05-2022 Hematocrit (Bld) [Volume fraction] 36.2 % 40-54 [facility] Work Phone: Laboratory - Chemistry and C hemistry - challengeon 01-05-2022 CO2 [Moles/Vol] 28.0 mmol/L 21.0-32.0 [facility] Work Phone: Urea nitrogen/Creatinine [Mass ratio] 20.0 mg/mg 10-20 [facility] Work Phone: Laboratory - Hematology and Cell countson 01-05-2022 Erythrocyte distribution width (RBC) [Entitic vol] 51.8 fL 35.1-43.9 [facility] Work Phone: Erythrocyte distribution width (RBC) [Ratio] 16.8 % 11.6-14.6 [facility] Work Phone: MCH (RBC) [Entitic mass] 26.2 pg 27.0-32.0 [facility] Work Phone: MCHC Auto (RBC) [Mass/Vol]on 01-05-2022 MCHC (RBC) [Mass/Vol] 30.9 g/dL 32-36 [facility] Work Phone: No Panel Informationon 01-05 Estimated GFR (MDRD) Amer 133 mL/min >60 [facility] Work Phone: Comment on above: GFR Calc Estimated GFR (MDRD) Non-Af Amer 110 mL/min >60 [facility] Work Phone: Comment on above: Non- GFR Calc Platelets bldon 01-05-2022 Platelets (Bld) [#/Vol] 373 10*3/uL 150-450 [facility] Work Phone: Serum or plasma calcium oral urement (mass/volume)on 01-05-2022 Calcium [Mass/Vol] 8.8 mg/dL 8.5-10.1 [facility] Work Phone: Serum or plasma creatinine m easurement (mass/volume)on 01-05-2022 Creatinine [Mass/Vol] 0.75 mg/dL 0.70-1.30 [facility] Work Phone: Comment on above: The validity of the calculated GFR & GFRAA in patients over 70 years has not been determined. Clinical correlation is essential. Serum or plasma urea nitroge n measurement (mass/volume)on 01-05-2022 Urea nitrogen [Mass/Vol] 15 mg/dL 7-18 [facility] Work Phone: Thin prep Papanicolaou smear with manual screeningon 01-05-2022 Thin prep Papanicolaou smear with manual screening 8 5-15 [facility] Work Phone: Laboratory - Coagulationon 0 12-30-2021 INR Coag (Bld) [Relative time] 2.0 {INR} [facility] Work Phone: Comment on above: Critical Value > 4.0 Whole blood prothrombin time on 12-30-2021 PT Coag (Bld) [Time] 23.7 s 11.7-14.9 [facility] Work Phone: Basophil percentageon 2021 Chloride [Moles/Vol] 106 mmol/L 98-107 [facility] Work Phone: Glucose [Mass/Vol] 91 mg/dL 74-106 [facility] Work Phone: Potassium [Moles/Vol] 3.4 mmol/L 3.5-5.1 [facility] Work Phone: Sodium [Moles/Vol] 141 mmol/L 136-145 [facility] Work Phone: WBC (Bld) [#/Vol] 10.2 10*3/uL 4.4-11.0 [facility] Work Phone: Blood erythrocytes count (nu mber/volume)on 12-28-2021 RBC (Bld) [#/Vol] 4.22 10*6/uL 4.6-6.2 [facility] Work Phone: Blood hemoglobin measurement (mass/volume)on 12-28-2021 Hemoglobin (Bld) [Mass/Vol] 11.2 g/dL 13.0-16.5 [facility] Work Phone: Blood platelet mean volumeon 12-28-2021 Platelet mean volume (Bld) [Entitic vol] 10.1 fL 6.2-12.0 [facility] Work Phone: Determination of erythrocyte mean corpuscular volume (MCV)on 12-28-2021 MCV (RBC) [Entitic vol] 82.7 fL 80-94 [facility] Work Phone: Hematocrit Auto (Bld) [Volum e fraction]on 12-28-2021 Hematocrit (Bld) [Volume fraction] 34.9 % 40-54 [facility] Work Phone: Laboratory - Chemistry and C hemistry - challengeon 12-28-2021 CO2 [Moles/Vol] 30.0 mmol/L 21.0-32.0 [facility] Work Phone: Urea nitrogen/Creatinine [Mass ratio] 33.7 mg/mg 10-20 [facility] Work Phone: Laboratory - Hematology and Cell countson 12-28-2021 Erythrocyte distribution width (RBC) [Entitic vol] 49.1 fL 35.1-43.9 [facility] Work Phone: Erythrocyte distribution width (RBC) [Ratio] 16.5 % 11.6-14.6 [facility] Work Phone: MCH (RBC) [Entitic mass] 26.5 pg 27.0-32.0 [facility] Work Phone: MCHC Auto (RBC) [Mass/Vol]on 12-28-2021 MCHC (RBC) [Mass/Vol] 32.1 g/dL 32-36 [facility] Work Phone: No Panel Informationon 12-28 Estimated GFR (MDRD) Amer 174 mL/min >60 [facility] Work Phone: Comment on above: GFR Calc Estimated GFR (MDRD) Non-Af Amer 143 mL/min >60 [facility] Work Phone: Comment on above: Non- GFR Calc Platelets bldon 12-28-2021 Platelets (Bld) [#/Vol] 339 10*3/uL 150-450 [facility] Work Phone: Serum or plasma calcium oral urement (mass/volume)on 12-28-2021 Calcium [Mass/Vol] 8.6 mg/dL 8.5-10.1 [facility] Work Phone: Serum or plasma creatinine m easurement (mass/volume)on 12-28-2021 Creatinine [Mass/Vol] 0.59 mg/dL 0.70-1.30 [facility] Work Phone: Comment on above: The validity of the calculated GFR & GFRAA in patients over 70 years has not been determined. Clinical correlation is essential. Serum or plasma urea nitroge n measurement (mass/volume)on 12-28-2021 Urea nitrogen [Mass/Vol] 20 mg/dL 7-18 [facility] Work Phone: Thin prep Papanicolaou smear with manual screeningon 12-28-2021 Thin prep Papanicolaou smear with manual screening 5 5-15 [facility] Work Phone: CULTURE BLOODon 12-27-2021 Microscopic examination of blood, culture CULTURE BLOOD --> Status: F No growth at 5 days. Normal [facility] Comment on above: Performed By: #### C /BLD #### [facility] [employer] [address] [place] [address] Laboratory - Coagulationon 0 12-26-2021 INR Coag (Bld) [Relative time] 1.7 {INR} [facility] Work Phone: Comment on above: Critical Value > 4.0 Whole blood prothrombin time on 12-26-2021 PT Coag (Bld) [Time] 20.8 s 11.7-14.9 [facility] Work Phone: Basic Metabolic Panelon 12-05 Calcium [Mass/Vol] 8.8 mg/dL Normal 8.4-10.4 [facility] Comment on above: Performed By: #### C RP2, ESR, HEMDF, BMP3 ####[facility] [address] [place] [address] Anion gap [Moles/Vol] 6 mmol/L Normal 3-13 [facility] Comment on above: Performed By: #### C RP2, ESR, HEMDF, BMP3 ####[facility] [place] [address] CO2 [Moles/Vol] 27 mmol/L Normal 22-30 [facility] Comment on above: Performed By: #### C RP2, ESR, HEMDF, BMP3 ####[facility] [employer] [address] [place] [address] Glucose [Mass/Vol] 100 mg/dL Normal 70-100 [facility] Comment on above: Performed By: #### C RP2, ESR, HEMDF, BMP3 ####[employer] [place] [address] Urea nitrogen [Mass/Vol] 18 mg/dL High 7-17 [facility] Comment on above: Performed By: #### C RP2, ESR, HEMDF, BMP3 ####[facility] [address] [place] [address] Creatinine [Mass/Vol] 0.73 mg/dL Normal 0.52-1.25 [facility] Comment on above: Performed By: #### C RP2, ESR, HEMDF, BMP3 ####[facility] [employer] [address] [place], [place] eGFR OTHER > 90.0 Normal >60 [facility] Comment on above: Result Comment: KDIG [...] ESR, HEMDF, BMP3 ####[facility] [employer] [address] [place], [place] GFR/1.73 sq M.predicted among blacks MDRD (S/P/Bld) [Vol rate/Area] mL/min/{1.73_m2} Normal >60 [facility] Comment on above: Performed By: #### C RP2, ESR, HEMDF, BMP3 ####[facility] [employer] [address] [place], [place] Potassium [Moles/Vol] 3.7 mmol/L Normal 3.5-5.1 [facility] Comment on above: Performed By: #### C RP2, ESR, HEMDF, BMP3 ####[facility] [employer] [address] [place], [place] Chloride [Moles/Vol] 106 mmol/L Normal 98-107 [facility] Comment on above: Performed By: #### C RP2, ESR, HEMDF, BMP3 ####[facility] [employer] [address] [place], [place] Sodium [Moles/Vol] 139 mmol/L Normal 135-145 [facility] [employer] Comment on above: Performed By: #### C RP2, ESR, HEMDF, BMP3 ####[facility] [address] [place] [address] Anion gap [Moles/Vol] 6 mmol/L 3 - 13 mmol/L [facility] Calcium [Mass/Vol] 8.8 mg/dL 8.4 - 10. 4 mg/dL [facility] Chloride [Moles/Vol] 106 mmol/L 98 - 10 7 mmol/L [facility] CO2 [Moles/Vol] 27 mmol/L 22 - 30 mmol/L [facility] Creatinine [Mass/Vol] 0.73 mg/dL 0.52 - 1.25 mg/dL [facility] eGFR mL/min 60 - P INF mL/min [facility] EGFR IF NonAfrican Macanese mL/min 60 - PINF mL/min [facility] Comment on above: KDIGO guidelines [...] 2021 Basophil percentage 25-50 SEEN /hpf 0-5 [facility] Work Phone: Chloride [Moles/Vol] 106 mmol/L 98-[address] [facility] Work Phone: Glucose [Mass/Vol] 93 mg/dL 74-106 [place] [facility] Work Phone: Potassium [Moles/Vol] 3.5 mmol/L 3.5-5.1 [facility] [facility] Work Phone: [phone] Sodium [Moles/Vol] 140 mmol/L 136-145 [facility] Work Phone: WBC (Bld) [#/Vol] 9.6 10*3/uL 4.4-11.0 [facility] Work Phone: Bilirubin Test strip Ql (U)o n 12-22-2021 Bilirubin Ql (U) Negative Negative [facility] Work Phone: Blood erythrocytes count (nu mber/volume)on 12-22-2021 RBC (Bld) [#/Vol] 4.34 10*6/uL 4.6-6.2 [place] [facility] Work Phone: Blood hemoglobin measurement (mass/volume)on 12-22-2021 Hemoglobin (Bld) [Mass/Vol] 11.5 g/dL 13.0-16.5 [facility] Work Phone: Blood platelet mean volumeon 12-22-2021 Platelet mean volume (Bld) [Entitic vol] 10.8 fL 6.2-12.0 [facility] Work Phone: C-Reactive Proteinon 022 CRP [Mass/Vol] 27.2 mg/L High 0.0-9.9 [facility] [employer] Comment on above: Result Comment: . Performed By: #### C RP2, ESR, HEMDF, BMP3 ####[employer] [address] [place] [address] CRP [Mass/Vol] 27.2 mg/L High 0 - 9.9 mg/L [email or web address] Comment on above: . CBC with Auto [...] - 10.7 10*3/uL [facility] Test Performed by [address] [place] [address] [facility] COVID-19, Flu A/B, and RSV C omboon 12-22-2021 Influenza A by PCR Not detected [facility] A Influenza B by PCR Not detected [facility] A RSV PCR Not Detected. Expected Result: Not Detected _ Method: Real-time, RT-PCR This assay was developed by [employer] and distributed under an Emergency Use Authorization (EUA) granted by the FDA for the qualitative detection of nucleic acids from SARS-CoV-2, Influenza A, Influenza B, and Respiratory Syncytial Virus. Provider and patient fact sheets can be found at https://www.fda.gov/media /830887/download and https://www.fda.gov/media /460038/download. [facility] SARS-CoV-2 (COVID-19) RNA MEGAN+probe Ql (Unsp spec) Not detected [facility] Test Performed by [address] [address] [facility] CR Foot Complete 3+ Views Le fton 12-22-2021 CR Foot Complete 3+ Views Left Patient Name: ANDREW SIFUENTES Diagnostic Radiology ACCESSION EXAM DATE/TIME PROCEDURE ORDERING PROVIDER [id number] 12/22/2021 00:09 EDT CR Foot Complete 3+ SANDY HIDALGO JOHN M Views Left CPT code 13647 Reason For Exam (CR Foot Complete 3+ [...] Transcribed Date and Time: 12/22/2021 0:21 Normal [facility] Calcium oxalate crystals det ection in urine sediment by light microscopyon 12-22-2021 Calcium oxalate crystals LM Ql (Urine sed) 1+ /hpf [facility] Work Phone: Determination of erythrocyte mean corpuscular volume (MCV)on 12-22-2021 MCV (RBC) [Entitic vol] 84.3 fL 80-94 [facility] Work Phone: ED Provider Noteon 2 [...] leg for a while. According to EMS custodial staff completed x-ray of the lower extremity and there was concern for osteomyelitis hence transferring patient to the hospital. Patient states this time the wounds on the left lower extremity for extended period of time. He denies fevers or chills. Patient states custodial staff have been taking care of the wound for him. Focused exam: Blood pressure 108/67, pulse 77, temperature 97.9 ?F (36.6 ?C), temperature source Oral, resp. rate 16, height 5' 9 (1.753 m), weight 79.4 kg (175 lb), SpO2 96 %. [id number] in no acute distress. Alert and oriented [...] are mis-transcribed.) Sharon Olivia MD Acute Care [facility] Sharon Olivia MD 12/22/21 0305 [facility] ED Provider Note [facility] EMERGENCY DEPT EMERGENCY DEPARTMENT ENCOUNTER Pt Name: Andrew Sifuentes Birthdate 1950 Date of evaluation: 12/21/2021 Provider: SANIA Lou CHIEF COMPLAINT Chief Complaint Patient presents with Osteomyelitis Patient from [facility], [facility] did xrays on left lower leg and and have concerns for possible osteomyelitis A&Ox2 to self and place, stated year 2022 [facility] Miss martini HISTORY OF PRESENT ILLNESS (Location/Symptom, Timing/Onset, Context/Setting, Quality,Duration, Modifying Factors, Severity) Note limiting factors. HPI I have seen this patient With supervising physician Does this patient come from an ECF, SNF, Rehab, Senior Care or other Congregate setting: no (If yes [...] Hemorrhoids Hydrocephalus, adult (HCC) Kidney stone Neuropathy [employer] (ventriculoperitoneal) shunt status SURGICAL HISTORY Past [...] use: No Sexual activity: Not Currently SCREENINGS Elizabeth Coma Scale Eye Opening: Spontaneous Best Verbal [...] soft. Tenderness: (more content not included)... Normal [facility] Hematocrit Auto (Bld) [Volum e fraction]on 12-22-2021 Hematocrit (Bld) [Volume fraction] 36.6 % 40-54 [facility] Work Phone: Hemogram w/ Autodiffon 12-22 Abs Baso Cnt 0.1 10*3/uL Normal 0.0-0.2 [facility] Comment on above: Performed By: #### C RP2, ESR, HEMDF, BMP3 ####[facility] [place] [address] Abs Neutrophile Cnt 5.9 10*3/uL Normal 1.8-7.0 [facility] Comment on above: Performed By: #### C RP2, ESR, HEMDF, BMP3 ####[address] Basophils/100 WBC (Bld) 0.7 % Normal 0.0-2.0 [facility] Comment on above: Performed By: #### C RP2, ESR, HEMDF, BMP3 ####[address] Eosinophils (Bld) [#/Vol] 0.2 10*3/uL Normal 0.0-0.5 [facility] Comment on above: Performed By: #### C RP2, ESR, HEMDF, BMP3 ####[address] Eosinophils/100 WBC (Bld) 2.3 % Normal 1.0-6.0 [facility] Comment on above: Performed By: #### C RP2, ESR, HEMDF, BMP3 ####[address] Erythrocyte distribution width (RBC) [Ratio] 17.5 % High 11.5-14.5 [facility] Comment on above: Performed By: #### C RP2, ESR, HEMDF, BMP3 ####[address] Granulocytes/100 WBC (Bld) 57.8 % Normal 40.0-80.0 [facility] Comment on above: Performed By: #### C RP2, ESR, HEMDF, BMP3 ####[address] Hematocrit (Bld) [Volume fraction] 33.3 % Low 40.0-52.0 [facility] Comment on above: Performed By: #### C RP2, ESR, HEMDF, BMP3 ####[address] Hemoglobin (Bld) [Mass/Vol] 11.0 g/dL Low 13.0-18.0 [facility] Comment on above: Performed By: #### C RP2, ESR, HEMDF, BMP3 ####[id number] [place], [place] Lymphocytes (Bld) [#/Vol] 3.3 10*3/uL Normal 1.0-4.3 [facility] Comment on above: Performed By: #### C RP2, ESR, HEMDF, BMP3 ####[id number] [place], [place] Lymphocytes/100 WBC (Bld) 33.0 % Normal 20.0-40.0 [facility] Comment on above: Performed By: #### C RP2, ESR, HEMDF, BMP3 ####[address] MCH (RBC) [Entitic mass] 26.5 pg Normal 26.0-34.0 [facility] Comment on above: Performed By: #### C RP2, ESR, HEMDF, BMP3 ####[id number] [place], [place] MCHC 33.1 % Normal 32.0-36.0 [facility] Comment on above: Performed By: #### C RP2, ESR, HEMDF, BMP3 ####[id number] [place], [place] MCV (RBC) [Entitic vol] 80.2 fL Normal 80.0-98.0 [facility] Comment on above: Performed By: #### C RP2, ESR, HEMDF, BMP3 ####[id number] [place], [place] Monocytes (Bld) [#/Vol] 0.6 10*3/uL Normal 0.0-0.8 [facility] Comment on above: Performed By: #### C RP2, ESR, HEMDF, BMP3 ####[id number] [place], [place] Monocytes/100 WBC (Bld) 6.2 % Normal 2.0-10.0 [facility] Comment on above: Performed By: #### C RP2, ESR, HEMDF, BMP3 ####[address] [address] [address] [place], [place] Platelet mean volume (Bld) [Entitic vol] 8.0 fL Normal 7.4-12.4 [facility] Comment on above: Result Comment: MPV is a calculated measurement using platelet volume ratio. Performed By: #### C RP2, ESR, HEMDF, BMP3 ####[id number] [place], [place] Platelets (Bld) [#/Vol] 368 10*3/uL Normal 140-440 [facility] Comment on above: Performed By: #### C RP2, ESR, HEMDF, BMP3 ####[id number] [place], [place] RBC (Bld) [#/Vol] 4.15 10*6/uL Low 4.40-5.90 [facility] Comment on above: Performed By: #### C RP2, ESR, HEMDF, BMP3 ####[facility] [employer] [id number] [place], [place] WBC (Bld) [#/Vol] 10.1 10*3/uL Normal 3.6-10.7 [facility] Comment on above: Performed By: #### C RP2, ESR, HEMDF, BMP3 ####[facility] [employer] [address] [place], [place] Ketones Test strip Ql (U)on 12-22-2021 Ketones Ql (U) Negative Negative [facility] Work Phone: Laboratory - Chemistry and C hemistry - challengeon 12-22-2021 CO2 [Moles/Vol] 27.0 mmol/L 21.0-32.0 [facility] Work Phone: Urea nitrogen/Creatinine [Mass ratio] 22.5 mg/mg 10-20 [facility] Work Phone: Laboratory - Hematology and Cell countson 12-22-2021 Erythrocyte distribution width (RBC) [Entitic vol] 49.1 fL 35.1-43.9 [facility] Work Phone: Erythrocyte distribution width (RBC) [Ratio] 16.1 % 11.6-14.6 [facility] Work Phone: MCH (RBC) [Entitic mass] 26.5 pg 27.0-32.0 [facility] Work Phone: MCHC Auto (RBC) [Mass/Vol]on 12-22-2021 MCHC (RBC) [Mass/Vol] 31.4 g/dL 32-36 [facility] Work Phone: Mucus LM Ql (Urine sed)on Mucus Ql (Urine sed) 0 SEEN /hpf [facility] Work Phone: Nitrite Test strip Ql (U)on 12-22-2021 Nitrite Ql (U) Positive Negative [facility] Work Phone: No Panel Informationon 12-22 Estimated GFR (MDRD) Amer 152 mL/min >60 [facility] Work Phone: Comment on above: GFR Calc Estimated GFR (MDRD) Non-Af Amer 125 mL/min >60 [facility] Work Phone: Comment on above: Non- GFR Calc Interpretation and review of laboratory results Abnormal [facility] Test Performed by [facility], [address] [place] [id number] [facility] Platelets bldon 12-22-2021 Platelets (Bld) [#/Vol] 317 10*3/uL 150-450 [facility] Work Phone: Protein Test strip Ql (U)on 12-22-2021 Protein Ql (U) 30 mg/dl Negative [facility] Work Phone: SARS-CoV-2, Flu A/B and RSVo n 12-22-2021 SARS-CoV-2 (COVID-19) RNA MEGAN+probe Ql (Unsp spec) SARS-CoV-2 --> Status: F Not Detected. Flu A PCR --> Status: F Not Detected. Flu B PCR --> Status: F Not Detected. RSV PCR --> Status: F Not Detected. Expected Result: Not Detected _ Method: Real-time, RT-PCR This assay was developed by [employer] and distributed under an Emergency Use Authorization (EUA) granted by the FDA for the qualitative detection of nucleic acids from SARS-CoV-2, Influenza A, Influenza B, and Respiratory Syncytial Virus. Provider and patient fact sheets can be found at https://www.fda.gov/media /420716/download and https://www.fda.gov/media /496706/download. Expected Result: Not Detected _ Method: Real-time, RT-PCR This assay was developed by [employer] and distributed under an Emergency Use Authorization (EUA) granted by the FDA for the qualitative detection of nucleic acids from SARS-CoV-2, Influenza A, Influenza B, and Respiratory Syncytial Virus. Provider and patient fact sheets can be found at https://www.[employer].gov/media /777236/download and https://www.[employer].gov/media /142842/download. Normal [facility] Comment on above: Performed By: #### C VFLR ####[id number] [place] [address], [id number] Sed Rateon 12-22-2021 Sed Rate 48 mm/h High 0-10 [facility] Comment on above: Performed By: #### C RP2, ESR, HEMDF, BMP3 ####[id number] [place] [address] Sedimentation Rateon 022 Interpretation and review of laboratory results Abnormal [facility] Sed Rate 48 mm/h High 0 - 10 mm/h [facility] Test Performed by [facility], [address] [place] [address] [facility] Serum or plasma calcium oral urement (mass/volume)on 12-22-2021 Calcium [Mass/Vol] 8.6 mg/dL 8.5-10.1 [facility] Work Phone: Serum or plasma creatinine m easurement (mass/volume)on 12-22-2021 Creatinine [Mass/Vol] 0.67 mg/dL 0.70-1.30 [facility] Work Phone: Comment on above: The validity of the calculated GFR & GFRAA in patients over 70 years has not been determined. Clinical correlation is essential. Serum or plasma urea nitroge n measurement (mass/volume)on 12-22-2021 Urea nitrogen [Mass/Vol] 15 mg/dL - [facility] Work Phone: Squamous epithelial cells de tection in urine sediment by light microscopyon 12-22-2021 Epithelial cells.squamous LM Ql (Urine sed) 0-5 SEEN /hpf 0-5 [facility] Work Phone: Thin prep Papanicolaou smear with manual screeningon 12-22-2021 Thin prep Papanicolaou smear with manual screening 7 -15 [facility] Work Phone: Urine blood detectionon 12-05 RBC Ql (U) 150 /ul Negative [facility] Work Phone: RBC Ql (U) 10-25 SEEN /hpf 0-5 [facility] Work Phone: Urine clarityon 12-22-2021 Clarity (U) Sl. Cloudy Clear [facility] Work Phone: Urine color determinationon 12-22-2021 Color (U) Yellow Yellow [facility] Work Phone: Urine glucose detectionon Glucose Ql (U) Normal mg/dl Normal [facility] Work Phone: Urine leukocyte esterase det ection by dipstickon 12-22-2021 Leukocyte esterase Test strip Ql (U) 500 /ul Negative [facility] Work Phone: Urine pHon 12-22-2021 pH (U) 6.0 [pH] 5.0 - 8.0 [facility] Work Phone: Urine sediment bacteria coun t by microscopy (number/high power field)on 12-22-2021 Bacteria LM.HPF (Urine sed) [#/Area] 2 /[HPF] None Seen [facility] Work Phone: Urine specific gravity measu rementon 12-22-2021 Specific gravity (U) [Rel density] 1.020 1.002-1.030 [facility] Work Phone: Urobilinogen Auto test strip Ql (U)on 12-22-2021 Urobilinogen Ql (U) Normal mg/dl Normal [facility] Work Phone: XR FOOT LEFT (MIN 3 VIEWS)on 12-22-2021 Patient Name: ANDREW SIFUENTES Diagnostic Radiology ACCESSION EXAM DATE/TIME PROCEDURE ORDERING PROVIDER [id number] 12/22/2021 00:09 EDT CR Foot Complete 3+ SANDY HIDALGO JOHN M Views Left CPT code 12725 Reason For Exam (CR Foot Complete 3+ [...] Date and Time: 12/22/2021 0:21 [facility] Albert Solano MD - 12/22/2021 Patient Name: ANDREW SIFUENTES Diagnostic Radiology ACCESSION EXAM DATE/TIME PROCEDURE ORDERING PROVIDER [id number] 12/22/2021 00:09 EDT CR Foot Complete 3+ SANDY HIDALGO JOHN M Views Left CPT code 71247 Reason For Exam (CR Foot Complete 3+ [...] Transcribed Date and Time: 12/22/2021 0:21 [facility] Work Phone: Radiology Study observation (narrative) [facility] Work Phone: XR FOOT LEFT (MIN 3 VIEWS)Or dered By: Albert Solano on 12-22-2021 [facility] Work Phone: Basophil percentageon 2021 Chloride [Moles/Vol] 103 mmol/L 98-[address] [facility] Work Phone: [phone] Glucose [Mass/Vol] 92 mg/dL 74-106 [facility]: Potassium [Moles/Vol] 3.5 mmol/L 3.5-5.1 [facility] [facility] Work Phone: Sodium [Moles/Vol] 138 mmol/L 136-145 [place] [facility] Work Phone: WBC (Bld) [#/Vol] 11.2 10*3/uL 4.4-11.0 [place] [facility] Work Phone: Blood erythrocytes count (nu mber/volume)on 12-19-2021 RBC (Bld) [#/Vol] 4.50 10*6/uL 4.6-6.2 [facility] Work Phone: Blood hemoglobin measurement (mass/volume)on 12-19-2021 Hemoglobin (Bld) [Mass/Vol] 12.2 g/dL 13.0-16.5 [facility] Work Phone: Blood platelet mean volumeon 12-19-2021 Platelet mean volume (Bld) [Entitic vol] 11.3 fL 6.2-12.0 [facility] Work Phone: Determination of erythrocyte mean corpuscular volume (MCV)on 12-19-2021 MCV (RBC) [Entitic vol] 85.6 fL 80-94 [facility] Work Phone: Hematocrit Auto (Bld) [Volum e fraction]on 12-19-2021 Hematocrit (Bld) [Volume fraction] 38.5 % 40-54 [facility] Work Phone: Laboratory - Chemistry and C hemistry - challengeon 12-19-2021 CO2 [Moles/Vol] 30.0 mmol/L 21.0-32.0 [facility] Work Phone: Urea nitrogen/Creatinine [Mass ratio] 27.1 mg/mg 10-20 [facility] Work Phone: Laboratory - Hematology and Cell countson 12-19-2021 Erythrocyte distribution width (RBC) [Entitic vol] 50.5 fL 35.1-43.9 [facility] Work Phone: Erythrocyte distribution width (RBC) [Ratio] 16.0 % 11.6-14.6 [facility] Work Phone: MCH (RBC) [Entitic mass] 27.1 pg 27.0-32.0 [facility] Work Phone: MCHC Auto (RBC) [Mass/Vol]on 12-19-2021 MCHC (RBC) [Mass/Vol] 31.7 g/dL 32-36 [facility] Work Phone: No Panel Informationon 12-19 Estimated GFR (MDRD) Amer 153 mL/min >60 [facility] Work Phone: Comment on above: GFR Calc Estimated GFR (MDRD) Non-Af Amer 126 mL/min >60 [facility] Work Phone: Comment on above: Non- GFR Calc Platelets bldon 12-19-2021 Platelets (Bld) [#/Vol] 363 10*3/uL 150-450 [facility] Work Phone: Serum or plasma calcium oral urement (mass/volume)on 12-19-2021 Calcium [Mass/Vol] 9.5 mg/dL 8.5-10.1 [facility] Work Phone: Serum or plasma creatinine m easurement (mass/volume)on 12-19-2021 Creatinine [Mass/Vol] 0.66 mg/dL 0.70-1.30 [facility] Work Phone: Comment on above: The validity of the calculated GFR & GFRAA in patients over 70 years has not been determined. Clinical correlation is essential. Serum or plasma urea nitroge n measurement (mass/volume)on 12-19-2021 Urea nitrogen [Mass/Vol] 18 mg/dL 7-18 [facility] Work Phone: Thin prep Papanicolaou smear with manual screeningon 12-19-2021 Thin prep Papanicolaou smear with manual screening 5 5-15 [facility] Work Phone: Laboratory - Coagulationon 0 12-12-2021 INR Coag (Bld) [Relative time] 2.0 {INR} [facility] Work Phone: Comment on above: Critical Value > 4.0 Whole blood prothrombin time on 12-12-2021 PT Coag (Bld) [Time] 23.9 s 11.7-14.9 [facility] Work Phone: ANES POSTPROC EVALon 022 ANES POSTPROC EVAL Normal [facility] Laboratory - Coagulationon 0 12-08-2021 INR Coag (Bld) [Relative time] 1.8 {INR} [facility] Work Phone: Comment on above: Critical Value > 4.0 Whole blood prothrombin time on 12-08-2021 PT Coag (Bld) [Time] 21.0 s 11.7-14.9 [facility] Work Phone: Absolute lymphocyte counton 12-05-2021 Lymphocytes Auto (Unsp spec) [#/Vol] 2.97 10*3/uL 0.83-4.51 [facility] Work Phone: [phone] Basophil percentageon 2021 Basophils/100 WBC (Bld) 0.6 % 0-1 [facility] Work Phone: [phone] Chloride [Moles/Vol] 106 mmol/L 98-107 [facility] Work Phone: Eosinophils/100 WBC (Bld) 2.3 % 0-5 [facility] Work Phone: Glucose [Mass/Vol] 107 mg/dL 74-106 [facility] Work Phone: Comment on above: Fasting Glucose resu lt from 100 to 125 mg/dL suggests IMPAIRED HOMEOSTASIS per A.D.A. criteria. Neutrophils (Bld) [#/Vol] 5.6 10*3/uL 2.0-7.7 [facility] Work Phone: Neutrophils/100 WBC (Bld) 60.2 % 47-70 [facility] Work Phone: Potassium [Moles/Vol] 3.4 mmol/L 3.5-5.1 [facility]: Sodium [Moles/Vol] 139 mmol/L 136-145 [facility] Work Phone: WBC (Bld) [#/Vol] 9.3 10*3/uL 4.4-11.0 [facility] Work Phone: Blood erythrocytes count (nu mber/volume)on 12-05-2021 RBC (Bld) [#/Vol] 4.49 10*6/uL 4.6-6.2 [facility] Work Phone: Blood hemoglobin measurement (mass/volume)on 12-05-2021 Hemoglobin (Bld) [Mass/Vol] 12.1 g/dL 13.0-16.5 [facility] Work Phone: Blood lymphocytes/100 leukoc yteson 12-05-2021 Lymphocytes/100 WBC (Bld) 32.0 % 19-41 [facility] Work Phone: Blood monocytes/100 leukocyt eson 12-05-2021 Monocytes/100 WBC (Bld) 4.7 % 0-10 [facility] Work Phone: Blood platelet mean volumeon 12-05-2021 Platelet mean volume (Bld) [Entitic vol] 10.8 fL 6.2-12.0 [facility] Work Phone: Determination of erythrocyte mean corpuscular volume (MCV)on 12-05-2021 MCV (RBC) [Entitic vol] 84.9 fL 80-94 [facility] Work Phone: Hematocrit Auto (Bld) [Volum e fraction]on 12-05-2021 Hematocrit (Bld) [Volume fraction] 38.1 % 40-54 [facility] Work Phone: INR in Blood by Coagulation assayon 12-05-2021 INR Coag (Bld) [Relative time] 1.8 {INR} [facility] Work Phone: Laboratory - Chemistry and C hemistry - challengeon 12-05-2021 CO2 [Moles/Vol] 29.0 mmol/L 21.0-32.0 [facility] Work Phone: Urea nitrogen/Creatinine [Mass ratio] 25.4 mg/mg 10-20 [facility] Work Phone: Laboratory - Coagulationon 0 12-05-2021 PT Coag (PPP) [Time] 20.5 s 11.7-14.9 [facility] Work Phone: Laboratory - Hematology and Cell countson 12-05-2021 Erythrocyte distribution width (RBC) [Entitic vol] 48.5 fL 35.1-43.9 [facility] Work Phone: Erythrocyte distribution width (RBC) [Ratio] 15.7 % 11.6-14.6 [facility] Work Phone: Immature granulocytes/100 WBC (Bld) 0.200 % 0.0-0.9 [facility] Work Phone: Comment on above: IG% - Immature Granu locytes (promyelocytes, myelocytes and metamyelocytes) > 1% indicates that a LEFT SHIFT is Present. MCH (RBC) [Entitic mass] 26.9 pg 27.0-32.0 [facility] Work Phone: Nucleated RBC/100 WBC (Bld) [Ratio] 0 % 0-5 [facility] Work Phone: MCHC Auto (RBC) [Mass/Vol]on 12-05-2021 MCHC (RBC) [Mass/Vol] 31.8 g/dL 32-36 [facility] Work Phone: No Panel Informationon 12-05 Estimated GFR (MDRD) Amer 133 mL/min >60 [facility] Work Phone: Comment on above: GFR Calc Estimated GFR (MDRD) Non-Af Amer 110 mL/min >60 [facility] Work Phone: Comment on above: Non- GFR Calc Platelets bldon 12-05-2021 Platelets (Bld) [#/Vol] 363 10*3/uL 150-450 [facility] Work Phone: Serum or plasma calcium oral urement (mass/volume)on 12-05-2021 Calcium [Mass/Vol] 9.4 mg/dL 8.5-10.1 [facility] Work Phone: Serum or plasma creatinine m easurement (mass/volume)on 12-05-2021 Creatinine [Mass/Vol] 0.75 mg/dL 0.70-1.30 [facility] Work Phone: Comment on above: The validity of the calculated GFR & GFRAA in patients over 70 years has not been determined. Clinical correlation is essential. Serum or plasma urea nitroge n measurement (mass/volume)on 12-05-2021 Urea nitrogen [Mass/Vol] 19 mg/dL 7-18 [facility] Work Phone: Thin prep Papanicolaou smear with manual screeningon 12-05-2021 Thin prep Papanicolaou smear with manual screening 4 5-15 [facility] Work Phone: Basophil percentageon 2021 Basophil percentage 0 SEEN /hpf 0-5 [facility] Work Phone: Chloride [Moles/Vol] 104 mmol/L 98-107 [facility] Work Phone: Glucose [Mass/Vol] 90 mg/dL 74-106 [facility] Work Phone: Potassium [Moles/Vol] 3.7 mmol/L 3.5-5.1 [facility] Work Phone: Comment on above: Slight Hemolysis, Re sult may be falsely increased. Sodium [Moles/Vol] 138 mmol/L 136-145 [facility] Work Phone: WBC (Bld) [#/Vol] 10.7 10*3/uL 4.4-11.0 [facility] Work Phone: Bilirubin Test strip Ql (U)o n 12-01-2021 Bilirubin Ql (U) Negative Negative [facility] Work Phone: Blood erythrocytes count (nu mber/volume)on 12-01-2021 RBC (Bld) [#/Vol] 4.33 10*6/uL 4.6-6.2 [facility] Work Phone: Blood hemoglobin measurement (mass/volume)on 12-01-2021 Hemoglobin (Bld) [Mass/Vol] 11.6 g/dL 13.0-16.5 [facility] Work Phone: Blood platelet mean volumeon 12-01-2021 Platelet mean volume (Bld) [Entitic vol] 11.2 fL 6.2-12.0 [facility] Work Phone: Determination of erythrocyte mean corpuscular volume (MCV)on 12-01-2021 MCV (RBC) [Entitic vol] 85.2 fL 80-94 [facility] Work Phone: Hematocrit Auto (Bld) [Volum e fraction]on 12-01-2021 Hematocrit (Bld) [Volume fraction] 36.9 % 40-54 [facility] Work Phone: Ketones Test strip Ql (U)on 12-01-2021 Ketones Ql (U) Negative Negative [facility] Work Phone: Laboratory - Chemistry and C hemistry - challengeon 12-01-2021 CO2 [Moles/Vol] 27.0 mmol/L 21.0-32.0 [facility] Work Phone: Urea nitrogen/Creatinine [Mass ratio] 24.0 mg/mg 10-20 [facility] Work Phone: Laboratory - Coagulationon 0 12-01-2021 INR Coag (Bld) [Relative time] 1.6 {INR} [facility] Work Phone: Comment on above: Critical Value > 4.0 Laboratory - Hematology and Cell countson 12-01-2021 Erythrocyte distribution width (RBC) [Entitic vol] 47.9 fL 35.1-43.9 [facility] Work Phone: Erythrocyte distribution width (RBC) [Ratio] 15.5 % 11.6-14.6 [facility] Work Phone: MCH (RBC) [Entitic mass] 26.8 pg 27.0-32.0 [facility] Work Phone: MCHC Auto (RBC) [Mass/Vol]on 12-01-2021 MCHC (RBC) [Mass/Vol] 31.4 g/dL 32-36 [facility] Work Phone: Mucus LM Ql (Urine sed)on Mucus Ql (Urine sed) 0 SEEN /hpf [facility] Work Phone: Nitrite Test strip Ql (U)on 12-01-2021 Nitrite Ql (U) Negative Negative [facility] Work Phone: No Panel Informationon 12-01 Estimated GFR (MDRD) Amer 133 mL/min >60 [facility] Work Phone: Comment on above: GFR Calc Estimated GFR (MDRD) Non-Af Amer 110 mL/min >60 [facility] Work Phone: Comment on above: Non- GFR Calc Platelets bldon 12-01-2021 Platelets (Bld) [#/Vol] 336 10*3/uL 150-450 [facility] Work Phone: Protein Test strip Ql (U)on 12-01-2021 Protein Ql (U) 30 mg/dl Negative [facility] Work Phone: Serum or plasma calcium oral urement (mass/volume)on 12-01-2021 Calcium [Mass/Vol] 9.4 mg/dL 8.5-10.1 [facility] Work Phone: Serum or plasma creatinine m easurement (mass/volume)on 12-01-2021 Creatinine [Mass/Vol] 0.75 mg/dL 0.70-1.30 [facility] Work Phone: Comment on above: The validity of the calculated GFR & GFRAA in patients over 70 years has not been determined. Clinical correlation is essential. Serum or plasma urea nitroge n measurement (mass/volume)on 12-01-2021 Urea nitrogen [Mass/Vol] 18 mg/dL 7-18 [facility] Work Phone: Squamous epithelial cells de tection in urine sediment by light microscopyon 12-01-2021 Epithelial cells.squamous LM Ql (Urine sed) 0-5 SEEN /hpf 0-5 [facility] Work Phone: Thin prep Papanicolaou smear with manual screeningon 12-01-2021 Thin prep Papanicolaou smear with manual screening 7 5-15 [facility] Work Phone: Urine blood detectionon 11-05 RBC Ql (U) Negative Negative [facility] Work Phone: RBC Ql (U) 0 SEEN /hpf 0-5 [facility] Work Phone: Urine clarityon 12-01-2021 Clarity (U) Clear Clear [facility] Work Phone: Urine color determinationon 12-01-2021 Color (U) Yellow Yellow [facility] Work Phone: Urine glucose detectionon Glucose Ql (U) 50 mg/dl Normal [facility] Work Phone: Urine leukocyte esterase det ection by dipstickon 12-01-2021 Leukocyte esterase Test strip Ql (U) Negative Negative [facility] Work Phone: Urine pHon 12-01-2021 pH (U) 6.0 [pH] 5.0 - 8.0 [facility] Work Phone: Urine sediment bacteria coun t by microscopy (number/high power field)on 12-01-2021 Bacteria LM.HPF (Urine sed) [#/Area] 0 /[HPF] None Seen [facility] Work Phone: Urine sediment yeast count b y microscopy (number/high powered field)on 12-01-2021 Yeast LM.HPF (Urine sed) [#/Area] 2 /[HPF] None Seen [facility] Work Phone: Urine specific gravity measu rementon 12-01-2021 Specific gravity (U) [Rel density] 1.010 1.002-1.030 [facility] Work Phone: Urobilinogen Auto test strip Ql (U)on 12-01-2021 Urobilinogen Ql (U) Normal mg/dl Normal [facility] Work Phone: Whole blood prothrombin time on 12-01-2021 PT Coag (Bld) [Time] 19.8 s 11.7-14.9 [facility] Work Phone: Laboratory - Coagulationon 0 11-28-2021 INR Coag (Bld) [Relative time] 1.6 {INR} [facility] Work Phone: Comment on above: Critical Value > 4.0 Whole blood prothrombin time on 11-28-2021 PT Coag (Bld) [Time] 18.8 s 11.7-14.9 [facility] Work Phone: INR in Blood by Coagulation assayon 11-23-2021 INR Coag (Bld) [Relative time] 2.7 {INR} [facility] Work Phone: Laboratory - Coagulationon 0 11-23-2021 PT Coag (PPP) [Time] 28.0 s 11.7-14.9 [facility] Work Phone: Laboratory - Coagulationon 0 11-22-2021 INR Coag (Bld) [Relative time] 3.8 {INR} [facility] Work Phone: Comment on above: Critical Value > 4.0 Whole blood prothrombin time on 11-22-2021 PT Coag (Bld) [Time] 42.8 s 11.7-14.9 [facility] Work Phone: INR in Blood by Coagulation assayon 11-21-2021 INR Coag (Bld) [Relative time] 3.9 {INR} [facility] Work Phone: Laboratory - Coagulationon 0 11-21-2021 PT Coag (PPP) [Time] 37.7 s 11.7-14.9 [facility] Work Phone: Whole blood prothrombin time on 11-21-2021 PT Coag (Bld) [Time] 45.5 s 11.7-14.9 [facility] Work Phone: INR in Blood by Coagulation assayon 11-14-2021 INR Coag (Bld) [Relative time] 3.1 {INR} [facility] Work Phone: Laboratory - Coagulationon 0 11-14-2021 PT Coag (PPP) [Time] 31.4 s 11.7-14.9 [facility] Work Phone: Laboratory - Coagulationon 0 11-08-2021 INR Coag (Bld) [Relative time] 2.5 {INR} [facility] Work Phone: Comment on above: Critical Value > 4.0 Whole blood prothrombin time on 11-08-2021 PT Coag (Bld) [Time] 29.0 s 11.7-14.9 [facility] Work Phone: Basophil percentageon 2021 Chloride [Moles/Vol] 106 mmol/L 98-107 [facility] Work Phone: Glucose [Mass/Vol] 100 mg/dL 74-106 [facility] Work Phone: Comment on above: Fasting Glucose resu lt from 100 to 125 mg/dL suggests IMPAIRED HOMEOSTASIS per A.D.A. criteria. Potassium [Moles/Vol] 3.7 mmol/L 3.5-5.1 [facility] Work Phone: Sodium [Moles/Vol] 140 mmol/L 136-145 [facility] Work Phone: WBC (Bld) [#/Vol] 8.8 10*3/uL 4.4-11.0 [facility] Work Phone: Blood erythrocytes count (nu mber/volume)on 11-04-2021 RBC (Bld) [#/Vol] 4.05 10*6/uL 4.6-6.2 [facility] Work Phone: Blood hemoglobin measurement (mass/volume)on 11-04-2021 Hemoglobin (Bld) [Mass/Vol] 11.1 g/dL 13.0-16.5 [facility] Work Phone: Blood platelet mean volumeon 11-04-2021 Platelet mean volume (Bld) [Entitic vol] 10.8 fL 6.2-12.0 [facility] Work Phone: Determination of erythrocyte mean corpuscular volume (MCV)on 11-04-2021 MCV (RBC) [Entitic vol] 86.9 fL 80-94 [facility] Work Phone: Hematocrit Auto (Bld) [Volum e fraction]on 11-04-2021 Hematocrit (Bld) [Volume fraction] 35.2 % 40-54 [facility] Work Phone: INR in Blood by Coagulation assayon 11-04-2021 INR Coag (Bld) [Relative time] 1.8 {INR} [facility] Work Phone: Laboratory - Chemistry and C hemistry - challengeon 11-04-2021 CO2 [Moles/Vol] 26.0 mmol/L 21.0-32.0 [facility] Work Phone: Urea nitrogen/Creatinine [Mass ratio] 18.3 mg/mg 10-20 [facility] Work Phone: Laboratory - Coagulationon 0 11-04-2021 PT Coag (PPP) [Time] 20.4 s 11.7-14.9 [facility] Work Phone: Laboratory - Hematology and Cell countson 11-04-2021 Erythrocyte distribution width (RBC) [Entitic vol] 48.1 fL 35.1-43.9 [facility] Work Phone: Erythrocyte distribution width (RBC) [Ratio] 15.0 % 11.6-14.6 [facility] Work Phone: MCH (RBC) [Entitic mass] 27.4 pg 27.0-32.0 [facility] Work Phone: MCHC Auto (RBC) [Mass/Vol]on 11-04-2021 MCHC (RBC) [Mass/Vol] 31.5 g/dL 32-36 [facility] Work Phone: No Panel Informationon 11-04 D-Dimer Quantitative (PE/DVT) 0.56 FEU/ug/m 0.27-0.49 [facility] Work Phone: Comment on above: D-Dimer ELEVATED (>0 .49): Additional studies and clinicalassessments are indicated to conclude diagnosis of:Deep Vein Thrombosis (DVT) or Pulmonary Embolism (PE) Estimated GFR (MDRD) Amer 155 mL/min >60 [facility] Work Phone: Comment on above: GFR Calc Estimated GFR (MDRD) Non-Af Amer 128 mL/min >60 [facility] Work Phone: Comment on above: Non- GFR Calc Troponin I High Sensitivity 11 pg/mL 3.0-78.0 [facility] Work Phone: Comment on above: Please Note: New Fadumo t Units and Gender Specific Reference Ranges. For more information see Policy Stat Procedure [place]ick[place] High Sensitivity Troponin (TNIH) and attachments. Platelets bldon 11-04-2021 Platelets (Bld) [#/Vol] 364 10*3/uL 150-450 [facility] Work Phone: Serum or plasma C reactive p rotein measurement (mass/volume)on 11-04-2021 CRP [Mass/Vol] 31.90 mg/L 0.0-3.0 [facility] Work Phone: Comment on above: C-Reactive Protein ( CRP) provides useful information for thediagnosis, therapy and monitoring of inflammatory processesand associated diseases. For the evaluation of Relative Riskfor Cardiovascular Disease, a High Sensitivity CRP (HSCRP)should be ordered. Serum or plasma calcium oral urement (mass/volume)on 11-04-2021 Calcium [Mass/Vol] 9.1 mg/dL 8.5-10.1 [facility] Work Phone: Serum or plasma creatinine m easurement (mass/volume)on 11-04-2021 Creatinine [Mass/Vol] 0.66 mg/dL 0.70-1.30 [facility] Work Phone: Comment on above: The validity of the calculated GFR & GFRAA in patients over 70 years has not been determined. Clinical correlation is essential. Serum or plasma urea nitroge n measurement (mass/volume)on 11-04-2021 Urea nitrogen [Mass/Vol] 12 mg/dL 7-18 [facility] Work Phone: Thin prep Papanicolaou smear with manual screeningon 11-04-2021 Thin prep Papanicolaou smear with manual screening 8 5-15 [facility] Work Phone: Complete Urinalysison 2021 Appearance (U) Clear Normal Clear [facility] Comment on above: Result Comment: . Performed By: #### C UA2 ####[employer] [id number] [place], [place] Bacteria Moderate Abnormal Negative [facility] Comment on above: Result Comment: . Performed By: #### C UA2 ####[employer] [id number] [place], [place] Bilirubin,Urine Negative Normal Negative [facility] Comment on above: Result Comment: . Performed By: #### C UA2 ####[employer] [id number] [place], [place] Cast, Hyaline Negative Normal Negative [facility] Comment on above: Result Comment: . Performed By: #### C UA2 ####[id number] [place], [place] Color (U) Yellow Normal Lt. Yellow [facility] Comment on above: Result Comment: . Performed By: #### C UA2 ####[employer] [id number] [place], [place] Glucose Ql (U) Normal Normal Normal (<70) [facility] Comment on above: Result Comment: . Performed By: #### C UA2 ####[employer] [id number] [place], [place] Ketone,Urine Negative Normal Negative [facility] [employer] Comment on above: Result Comment: . Performed By: #### C UA2 ####[employer] [id number] [place], [place] Leukocytes,Urine Negative Normal Negative [facility] Comment on above: Result Comment: . Performed By: #### C UA2 ####[id number] [place], [place] Mucous Threads Few Normal Negative [facility] Comment on above: Result Comment: . Performed By: #### C UA2 ####[id number] [place], [place] Nitrites,Urine Negative Normal Negative [facility] Comment on above: Result Comment: . Performed By: #### C UA2 ####[address] [place], [place] Occult Blood,Urine 0.1 mg/dL Abnormal Negative [facility] Comment on above: Result Comment: . Performed By: #### C UA2 ####[address] pH,Urine 5.5 Normal 5.0-8.0 [facility] Comment on above: Result Comment: . Performed By: #### C UA2 ####[id number] [place], [place] Protein (U) [Mass/Vol] 10 mg/dL Abnormal Negative [facility] Comment on above: Result Comment: . Performed By: #### C UA2 ####[id number] [place], [place] RBC, Urine 26 - 50 Abnormal 0-2 [facility] Comment on above: Result Comment: . Performed By: #### C UA2 ####[address] Specific [place],Urine 1.023 Normal 1.005 - 1.030 [facility] Comment on above: Result Comment: . Performed By: #### C UA2 ####[address] Squamous Epithelial Negative Normal 3-5 [facility] [facility] Comment on above: Result Comment: . Performed By: #### C UA2 ####[address] Urobilinogen,Urine Normal Normal Normal (0-1) [facility] Comment on above: Result Comment: . Performed By: #### C UA2 ####[facility] [place] [address] WBC, Urine 0 - 2 Normal 0-5 [facility] Comment on above: Result Comment: . Performed By: #### C UA2 ####[facility] [facility] [place] [address] Urinalysison 11-01-2021 Appearance (U) Clear Clear NA [...] Protein (U) [Mass/Vol] 10 mg/dL Abnormal Negative [facility] Comment on above: . RBC, UA 26-50 Abnormal 0 - 2 /[HPF] [facility] Comment on above: . Specific [place], Urine 1.023 [facility] Comment on above: . Squam Epithel, UA Negative 3 - 5 /[HPF] [facility] Comment on above: . Urobilinogen, Urine Normal Normal ( 0-1) mg/dL [facility] Comment on above: . WBC, UA 0-2 0 - 5 /[HPF] [facility] Comment on above: . Test Performed by [facility], [address] [place] [address] [facility] Basic Metabolic Panelon 10-06 Anion gap [Moles/Vol] 6 mmol/L Normal 3-13 [facility] Comment on above: Performed By: #### P T/AP, TROPN, BMP3, HEMDF #### [facility] [address] [place], [place] Calcium [Mass/Vol] 9.1 mg/dL Normal 8.4-10.4 [facility] Comment on above: Performed By: #### P T/AP, TROPN, BMP3, HEMDF #### [facility] [address] [place], [place] CO2 [Moles/Vol] 28 mmol/L Normal 22-30 [facility] Comment on above: Performed By: #### P T/AP, TROPN, BMP3, HEMDF #### [facility] [address] [place], [place] Glucose [Mass/Vol] 120 mg/dL High 70-100 [facility] Comment on above: Performed By: #### P T/AP, TROPN, BMP3, HEMDF #### [place] [address] [address] [place], [place] Urea nitrogen [Mass/Vol] 17 mg/dL Normal 7-17 [facility] Comment on above: Performed By: #### P T/AP, TROPN, BMP3, HEMDF #### [facility] [address] [place], [place] Creatinine [Mass/Vol] 0.65 mg/dL Normal 0.52-1.25 [facility] Comment on above: Performed By: #### P T/AP, TROPN, BMP3, HEMDF #### [facility] [address] [place], [place] eGFR OTHER > 90.0 Normal >60 [facility] Comment on above: Result Comment: KDIG [...] #### P T/AP, TROPN, BMP3, HEMDF #### [place] [address] [place], [place] GFR/1.73 sq M.predicted among blacks MDRD (S/P/Bld) [Vol rate/Area] mL/min/{1.73_m2} Normal >60 [facility] Comment on above: Performed By: #### P T/AP, TROPN, BMP3, HEMDF #### [place] [address] [place], [place] Potassium [Moles/Vol] 3.8 mmol/L Normal 3.5-5.1 [facility] Comment on above: Performed By: #### P T/AP, TROPN, BMP3, HEMDF #### [place] [address] [place], [place] Chloride [Moles/Vol] 101 mmol/L Normal 98-107 [facility] Comment on above: Performed By: #### P T/AP, TROPN, BMP3, HEMDF #### [place] [address] [address] [place] Sodium [Moles/Vol] 134 mmol/L Low 135-145 [facility] Comment on above: Performed By: #### P T/AP, TROPN, BMP3, HEMDF #### [place] [address] [address] [place] Anion gap [Moles/Vol] 6 mmol/L 3 - 13 mmol/L [facility] Calcium [Mass/Vol] 9.1 mg/dL 8.4 - 10. 4 mg/dL [facility] Chloride [Moles/Vol] 101 mmol/L 98 - 10 7 mmol/L [facility] CO2 [Moles/Vol] 28 mmol/L 22 - 30 mmol/L [facility] Creatinine [Mass/Vol] 0.65 mg/dL 0.52 - 1.25 mg/dL [facility] EGFR IF NonAfrican Macanese >90.0 >60 mL/min [facility] Comment on above: KDIGO guidelines [...] 17 mg/dL 7 - 17 mg/dL [facility] Test Performed by [facility], [address] [place] [id number] [place] [address] LAB [facility] CBC with Auto Differentialon 10-31-2021 [...] - 10.7 10*3/uL [facility] Test Performed by [address] LAB [facility] CR Abdomen APon 10-31-2021 CR Abdomen AP Patient Name: ANDREW SIFUENTES Diagnostic Radiology ACCESSION EXAM DATE/TIME PROCEDURE ORDERING PROVIDER [id number] 10/31/2021 20:36 EDT CR Abdomen AP [id number] -MYRON DURAN CPT code 76352 Reason For Exam (CR Abdomen AP) vp [...] Transcribed Date and Time: 10/31/2021 8:49 Normal [facility] CR Chest Portableon 11-01-19 22 CR Chest Portable [id number] Diagnostic Radiology ACCESSION EXAM DATE/TIME PROCEDURE ORDERING PROVIDER [id number] 10/31/2021 20:36 EDT CR Chest Portable [id number] MYRON GALINDO CPT code 82057 Reason For Exam (CR Chest Portable) AMS [...] Transcribed Date and Time: 10/31/2021 8:49 Normal [facility] CT HEAD WO CONTRASTon 2021 Patient Name: ANDREW SIFUENTES Computed Tomography ACCESSION EXAM DATE/TIME PROCEDURE ORDERING PROVIDER [id number] 10/31/2021 20:[address] Head or Brain w/o [id number] -MYRON DURAN Contrast CPT code 98284 Reason For Exam (CT Head or Brain w/o Contrast) 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, 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 SUPERVISOR shunt Report Examination: CT Head Clinical Information: AMS, 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 SUPERVISOR shunt Comparison: 10/26/2021, MRI 10/27/2021 Findings: [...] J Transcribed Date and Time: 10/31/2021 8:54 [facility] Alan Wong MD - 10/31/2021 [facility] Name[id number] Computed Tomography ACCESSION EXAM DATE/TIME PROCEDURE ORDERING PROVIDER [id number] 10/31/2021 20:[address] Head or Brain w/o [id number] -MYRON DURAN Contrast CPT code 77044 Reason For Exam (CT Head or Brain w/o Contrast) AMS, 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 SUPERVISOR shunt Report Examination: CT Head Clinical Information: AMS, 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 SUPERVISOR shunt Comparison: 10/26/2021, MRI 10/27/2021 Findings: [...] Brain w/o Contrast Patient [facility]: [id number] Computed Tomography ACCESSION EXAM DATE/TIME PROCEDURE ORDERING PROVIDER [id number] 10/31/2021 20:[address] Head or Brain w/o [id number] -DURAN, MYRON Contrast CPT code 02895 Reason For Exam (CT Head or Brain w/o Contrast) AMS, 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 SUPERVISOR shunt Report Examination: CT Head Clinical Information: AMS, 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 SUPERVISOR shunt Comparison: 10/26/2021, MRI 10/27/2021 Findings: [...] Transcribed Date and Time: 10/31/2021 8:54 Normal [facility] ED Provider Noteon ED Provider Note Emergency Department Encounter [facility] EMERGENCY DEPT Patient: Andrew Sifuentes : [...] is cooperative and calm. According to the custodial, he has been more lethargic than normal, [...] Solutions Dante Kim MD 10/31/21 2211 Normal [facility] ED Provider Note [facility] EMERGENCY DEPT EMERGENCY DEPARTMENT ENCOUNTER Pt Name: Andrew Sifuentes Birthdate 1950 Date of evaluation: 10/31/2021 Provider: Myron Duran MD CHIEF COMPLAINT Chief Complaint Patient presents with ? Altered Mental Status Pt presents to ED via [facility] for complaint listed. Pt is from [place] [facility]. Pt's LKW was 1000 hours today. [...] have a history of hydrocephalus with a SHEET METAL SHOP SUPERVISOR shunt. 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 REVIEW [...] (HCC) ? Kidney stone ? Neuropathy ? SHEET METAL SHOP SUPERVISOR (ventriculoperitoneal) shunt status SURGICAL HISTORY Past [...] of Transportati (more content not included)... Normal [facility] EKG 12 Lead - Chest Painon 0 10-31-2021 [facility] Test Date: 2021-10-31 Pat Name: ANDREW SIFUENTES Department: 1AER Room: 40 Gender: M Measurement Analyst: ANDRES : 1950 Requested By: MYRON DURAN Order Number: [id number] Reading MD: Dante Kim Measurements Intervals Equality Rate: 91 P: 41 DE: 154 QRS: 50 QRSD: 147 T: 8 QT: 385 QTc: 474 Interpretive Statements Sinus rhythm Right bundle branch block Electronically Signed On 10-31-2021 20:36:25 EDT by Dante Kim [facility] CARDIOLOGY Dante Kim M D - 10/31/2021 [facility] Test Date: 2021-10-31 Pat Name: ANDREW SIFUENTES Department: [facility] Room: 40 Gender: M Measurement Analyst: ANDRES : 1950 Requested By: MYRON DURAN Order Number: [id number] Reading MD: Dante Kim Measurements Intervals Equality Rate: 91 P: 41 DE: 154 QRS: 50 QRSD: 147 T: 8 QT: 385 QTc: 474 Interpretive Statements Sinus rhythm Right bundle branch block Electronically Signed On 10-31-2021 20:36:25 EDT by Dante Kim [facility] Work Phone: EKG 12 Lead - Chest PainOrde red By: Dante Kim on 10-31-2021 [facility] Work Phone: Hemogram w/ Autodiffon 10-31 Abs Baso Cnt 0.1 10*3/uL Normal 0.0-0.2 [facility] Comment on above: Performed By: #### P T/AP, TROPN, BMP3, HEMDF #### [facility] [employer] [facility] [address] [place] [address] Abs Neutrophile Cnt 6.0 10*3/uL Normal 1.8-7.0 [facility] Comment on above: Performed By: #### P T/AP, TROPN, BMP3, HEMDF #### [place] [address] [address] [place], [place] Basophils/100 WBC (Bld) 1.1 % Normal 0.0-2.0 [facility] Comment on above: Performed By: #### P T/AP, TROPN, BMP3, HEMDF #### [place] [address] [place], [place] Eosinophils (Bld) [#/Vol] 0.2 10*3/uL Normal 0.0-0.5 [facility] Comment on above: Performed By: #### P T/AP, TROPN, BMP3, HEMDF #### [address] Eosinophils/100 WBC (Bld) 2.3 % Normal 1.0-6.0 [facility] Comment on above: Performed By: #### P T/AP, TROPN, BMP3, HEMDF #### [address] Erythrocyte distribution width (RBC) [Ratio] 17.2 % High 11.5-14.5 [facility] Comment on above: Performed By: #### P T/AP, TROPN, BMP3, HEMDF #### [address] Granulocytes/100 WBC (Bld) 61.8 % Normal 40.0-80.0 [facility] Comment on above: Performed By: #### P T/AP, TROPN, BMP3, HEMDF #### [place] [address] [place], [place] Hematocrit (Bld) [Volume fraction] 35.0 % Low 40.0-52.0 [facility] Comment on above: Performed By: #### P T/AP, TROPN, BMP3, HEMDF #### [place] [address] [place], [place] Hemoglobin (Bld) [Mass/Vol] 11.3 g/dL Low 13.0-18.0 [facility] Comment on above: Performed By: #### P T/AP, TROPN, BMP3, HEMDF #### [place] [address] [address] [place] Lymphocytes (Bld) [#/Vol] 2.8 10*3/uL Normal 1.0-4.3 [facility] Comment on above: Performed By: #### P T/AP, TROPN, BMP3, HEMDF #### [place] [address] [place], [place] Lymphocytes/100 WBC (Bld) 29.2 % Normal 20.0-40.0 [facility] Comment on above: Performed By: #### P T/AP, TROPN, BMP3, HEMDF #### [place] [address] [place], [place] MCH (RBC) [Entitic mass] 27.5 pg Normal 26.0-34.0 [facility] Comment on above: Performed By: #### P T/AP, TROPN, BMP3, HEMDF #### [place] [address] [place], [place] MCHC 32.3 % Normal 32.0-36.0 [facility] Comment on above: Performed By: #### P T/AP, TROPN, BMP3, HEMDF #### [address] [place] MCV (RBC) [Entitic vol] 85.0 fL Normal 80.0-98.0 [facility] Comment on above: Performed By: #### P T/AP, TROPN, BMP3, HEMDF #### [place] [address] [address] [place] Monocytes (Bld) [#/Vol] 0.5 10*3/uL Normal 0.0-0.8 [facility] Comment on above: Performed By: #### P T/AP, TROPN, BMP3, HEMDF #### [address] Monocytes/100 WBC (Bld) 5.6 % Normal 2.0-10.0 [facility] Comment on above: Performed By: #### P T/AP, TROPN, BMP3, HEMDF #### [place] [address] [address] [place] Platelet mean volume (Bld) [Entitic vol] 8.6 fL Normal 7.4-12.4 [facility] Comment on above: Result Comment: MPV is a calculated measurement using platelet volume ratio. Performed By: #### P T/AP, TROPN, BMP3, HEMDF #### [facility] [address] [place], [place] Platelets (Bld) [#/Vol] 348 10*3/uL Normal 140-440 [facility] Comment on above: Performed By: #### P T/AP, TROPN, BMP3, HEMDF #### [place] [address] [address] [place] RBC (Bld) [#/Vol] 4.12 10*6/uL Low 4.40-5.90 [facility] Comment on above: Performed By: #### P T/AP, TROPN, BMP3, HEMDF #### [facility] [address] [place] WBC (Bld) [#/Vol] 9.7 10*3/uL Normal 3.6-10.7 [facility] Comment on above: Performed By: #### P T/AP, TROPN, BMP3, HEMDF #### [facility] [address] [place], [place] Laboratory - Coagulationon 0 10-31-2021 INR Coag (Bld) [Relative time] 2.0 {INR} [facility] Work Phone: Comment on above: Critical Value > 4.0 No Panel Informationon 10-31 Radiology Study observation (narrative) [facility] Work Phone: PROTIME/INR & PTTon 11-01-19 22 aPTT Coag (Bld) [Time] 39.2 s High 20.0 - 30.5 s [facility] Comment on above: NOTE: The therapeuti c time for Heparin anticoagulation, based on Xa activity inhibition, is an APTT of 46-80 seconds. INR Coag (Bld) [Relative time] 1.9 {INR} High [facility] Comment on above: Recommended Anticoag [...] and review of laboratory results Abnormal [facility] PT Coag (PPP) [Time] 19.8 s High 9.0 - 12.0 s [facility] Comment on above: . Test Performed by [facility], [address] [place] [address] - [facility] Protime AND APTTon 2 aPTT Coag (Bld) [Time] 39.2 s High 20.0-30.5 [facility] Comment on above: Result Comment: NOTE : The therapeutic time for Heparin anticoagulation, based on Xa activity inhibition, is an APTT of 46-80 seconds. Performed By: #### P T/AP, TROPN, BMP3, HEMDF #### [address] [address] INR 1.9 High 0.9-1.1 [facility] Comment on above: Result Comment: Harry [...] #### P T/AP, TROPN, BMP3, HEMDF #### [facility] [address] [place] [address] PT Coag (PPP) [Time] 19.8 s High 9.0-12.0 [facility] Comment on above: Result Comment: . Performed By: #### P T/AP, TROPN, BMP3, HEMDF #### [facility] [address] [place] [address] Troponin Ion 10-31-2021 Troponin I.cardiac [Mass/Vol] ng/mL Normal 0.000-0.034 [facility] Comment on above: Result Comment: . Performed By: #### P T/AP, TROPN, BMP3, HEMDF #### [facility] [address] [place] [address] Troponin x1on 10-31-2021 Troponin I.cardiac [Mass/Vol] ng/mL 0.000 - 0.034 ng/mL [facility] Comment on above: . Test Performed by [facility], [address] [place] [address] [facility] Whole blood prothrombin time on 10-31-2021 PT Coag (Bld) [Time] 23.7 s 11.7-14.9 [facility] Work Phone: XR ABDOMEN (KUB) (SINGLE AP VIEW)on 10-31-2021 Patient Name: ANDREW SIFUENTES Diagnostic Radiology ACCESSION EXAM DATE/TIME PROCEDURE ORDERING PROVIDER [id number] 10/31/2021 20:36 EDT CR Abdomen AP [id number] -MYRON DURAN CPT code 43059 Reason For Exam (CR Abdomen AP) vp [...] WENDELL Transcribed Date and Time: 10/31/2021 8:49 [facility] - 10/31/2021 Patient Name: ANDREW SIFUENTES Diagnostic Radiology ACCESSION EXAM DATE/TIME PROCEDURE ORDERING PROVIDER [id number] 10/31/2021 20:36 EDT CR Abdomen AP [id number] -DURAN MYRON CPT code 42149 Reason For Exam (CR Abdomen AP) vp [...] Time: 10/31/2021 8:49 [facility] Work Phone: [facility] Work Phone: XR CHEST PORTABLEon 11-01-19 Patient Name: ANDREW SIFUENTES Diagnostic Radiology ACCESSION EXAM DATE/TIME PROCEDURE ORDERING PROVIDER [id number] 10/31/2021 20:36 EDT CR Chest Portable [id number] PERDOMO CPT code 61946 Reason For Exam (CR Chest Portable) AMS [...] Date and Time: 10/31/2021 8:49 [facility] Huang Reynoso MD - 10/31/2021 Patient Name: ANDREW SIFUENTES Diagnostic Radiology ACCESSION EXAM DATE/TIME PROCEDURE ORDERING PROVIDER [id number] 10/31/2021 20:36 EDT CR Chest Portable [id number] MYRON GALINDO CPT code 68632 Reason For Exam (CR Chest Portable) AMS [...] Transcribed Date and Time: 10/31/2021 8:49 [facility] Work Phone: XR CHEST PORTABLEOrdered By: Huang Reynoso on 10-31-2021 [facility] Work Phone: Lupus Anticoagulanton 2021 DRVVT Confirmation Test Not Applicable Negative ratio [facility] Work Phone: dRVVT Screen 38 [facility] Work Phone: Hex Phosph Neut Test Not Applicable Negative NA [facility] Work Phone: Interpretation and review of laboratory results Abnormal [facility] Work Phone: LUPUS INTERPRETATION See Note [facility] Work Phone: Comment on above: Lupus [...] has not already been performed. Performed by [employer] [address], [facility] [place] [address] [email or web address], Quiana Castro MD - Lab. Director Platelet Neutralization Not Applicable Negative NA [facility] Work Phone: PTT-D Heparin Neutralized 48 [facility] Work Phone: PTT-LA 55 High [facility] Work Phone: Reptilase Tm 17.6 <=21.9 sec [facility] Work Phone: Thrombin Time 25.3 High [facility] Work Phone: [facility] Work Phone: Lupus Anticoagulant Reflexiv e Panelon 10-29-2021 aPTT Coag (Bld) [Time] 55 s High 32-48 [facility] Comment on above: Performed By: #### C OVAG #### [facility] [address] [place] [address] aPTT Coag (Bld) [Time] 48 s Normal 32-48 [facility] Comment on above: Performed By: #### C OVAG #### [facility] [address] [place] [address] DRVVT 1:1 Mix Not Applicable Normal 33-44 [facility] Work Phone: Comment on above: Performed By: #### C OVAG #### [facility] [address] [place] [address] dRVVT Confirmation Not Applicable Normal Negative [facility] Comment on above: Performed By: #### C OVAG #### [facility] [address] [place] [address] dRVVT Screen 38 sec Normal 33-44 [facility] Comment on above: Performed By: #### C OVAG #### [facility] [address] [place] [address] Hexagonal Phospholipid Neutral Reflex Not Applicable Normal Negative [facility] Comment on above: Performed By: #### C OVAG #### [facility] [address] [place] [address] Lupus Anticoagulant Interpretation See Note Normal [facility] Comment on above: Result [...] has not already been performed. Performed by [employer] [address] [place] [id number] [email or web address], Quiana Castro MD - Lab. Director Performed By: #### C OVAG #### [facility] [address] [place] [address] Platelet Neutralization (PTT-D, Confirm) Not Applicable Normal Negative [facility] Comment on above: Performed By: #### C OVAG #### [facility] [address] [facility] [place] [address] PT Coag (PPP) [Time] 14.7 s Normal 12.0-15.5 [facility] Work Phone: Comment on above: Performed By: #### C OVAG #### [facility] [address] [facility] [place] [address] PTT-D 1:1 Mix Not Applicable Normal 32-48 [facility] Work Phone: Comment on above: Performed By: #### C OVAG #### [facility] [address] [facility] [place] [address] Reptilase Time 17.6 sec Normal <=21.9 [facility] Comment on above: Performed By: #### C OVAG #### [facility] [address] [facility] [place] [address] Thrombin Time 25.3 sec High 14.7-19.5 [facility] Comment on above: Performed By: #### C OVAG #### [facility] [address] [place] [address] POCT COVID-19, Antigenon SARS-CoV-2 Nucleocapsid Antigen Negative Negative NA [facility] Comment on above: A negative result does not rule out the possibility of SARS-CoV-2 infection. NAAT-based methods should be considered for symptomatic patients presenting greater than seven days after onset of symptoms. Method: Lateral flow immunoassay. Fact sheets for healthcare providers and patients can be found at the following sites: https://www.[employer].gov/media/600276/download https://www.[employer].gov/media/366465/download Test Performed by [facility], [address] [place] [address] [facility] Prothrombin Timeon INR 2.7 High 0.9-1.1 [facility] Comment on above: Result Comment: Harry [...] Infarction Performed By: #### P T #### [facility] [address] [place] [address] PT Coag (PPP) [Time] 27.4 s High 9.0-12.0 [facility] Comment on above: Result Comment: . Performed By: #### P T #### [facility] [address] [place] [address] Protime-INRon 10-29-2021 INR Coag (Bld) [Relative time] 2.7 {INR} High [facility] Work Phone: Comment on above: [...] and review of laboratory results Abnormal [facility] Work Phone: 1 PT Coag (PPP) [Time] 27.4 s High 9.0 - 12.0 s [facility] Work Phone: Comment on above: . Test Performed by [facility], [address], [place], [place] [address] [facility] Work Phone: SARS-CoV-2 Antigenon 022 SARS-CoV-2 Antigen Negative Normal Negative [facility] Comment on above: Result Comment: A negative result does not rule out the possibility of SARS-CoV-2 infection. NAAT-based methods should be considered for symptomatic patients presenting greater than seven days after onset of symptoms. Method: Lateral flow immunoassay. Fact sheets for healthcare providers and patients can be found at the following sites: https://www.[employer].gov/media/622790/download https://www.[employer].gov/media/514948/download Performed By: #### C OVAG #### [facility] [address] [place] [address] CBCon 10-28-2021 Hematocrit (Bld) [Volume fraction] 33.4 % Low 40.0 - 52.0 % [facility] Work Phone: Hemoglobin (Bld) [Mass/Vol] 11.0 g/dL Low 13.0 - 18.0 g/dL [facility] Work Phone: 1 Interpretation and review of laboratory results Abnormal [facility] Work Phone: MCH (RBC) [Entitic mass] 27.8 pg 26.0 - 34.0 pg [facility] Work Phone: MCHC (RBC) [Mass/Vol] 32.8 % 32.0 - 36.0 % [facility] Work Phone: MCV (RBC) [Entitic vol] 84.8 fL 80.0 - 98.0 fL [facility] Work Phone: Platelet distribution width (Bld) [Ratio] 17.1 % High 11.5 - 14.5 % [facility] Work Phone: ) Platelet mean volume (Bld) [Entitic vol] 8.3 fL 7.4 - 12.4 fL [employer] Work Phone: [phone] Comment on above: MPV is a calculated measurement using platelet volume ratio. Platelets (Bld) [#/Vol] 344 10*3/uL 140 - 440 10*3/uL [email or web address] Work Phone: 1 RBC (Bld) [#/Vol] 3.94 10*6/uL Low 4.40 - 5.9 0 10*6/uL [email or web address] Work Phone: 1) WBC (Bld) [#/Vol] 10.0 10*3/uL 3.6 - 10.7 10*3/uL [employer] Work Phone: [phone] Test Performed by [facility], [address] [place], [place] [address] [facility] Work Phone: [phone] Comp Metabolic Panelon 10-28 ALP [Catalytic activity/Vol] 103 U/L Normal 38-126 [facility] Comment on above: Performed By: #### C A19O, LUPUS #### The performing lab is in the report. #### NSEO #### [facility] #### HEMDF, LDH3, BMP3, MG3, PT, CEA2 #### [facility] [facility] [address] [place] [address] #### B2GPM, B2GPA, B2GPG #### [address] [address] ALT [Catalytic activity/Vol] 26 U/L Normal 0-49 [facility] Comment on above: Result Comment: The ALT test is performed by an updated assay method. Please note that the reference intervals have been changed and are now sex specific. Performed By: #### C A19O, LUPUS #### The performing lab is in the report. #### NSEO #### [facility] #### HEMDF, LDH3, BMP3, MG3, PT, CEA2 #### [facility] [address] [place] [address] #### B2GPM, B2GPA, B2GPG #### [address] AST [Catalytic activity/Vol] 24 U/L Normal 15-46 [facility] Comment on above: Performed By: #### C A19O, LUPUS #### The performing lab is in the report. #### NSEO #### [facility] #### HEMDF, LDH3, BMP3, MG3, PT, CEA2 #### [facility] [address] [place] #### B2GPM, B2GPA, B2GPG #### [address] Calcium [Mass/Vol] 9.1 mg/dL Normal 8.4-10.4 [facility] Comment on above: Performed By: #### C A19O, LUPUS #### The performing lab is in the report. #### NSEO #### [facility] #### HEMDF, LDH3, BMP3, MG3, PT, CEA2 #### [facility] [address] [place] #### B2GPM, B2GPA, B2GPG #### [address] Glucose [Mass/Vol] 117 mg/dL High 70-100 [facility] Comment on above: Performed By: #### C A19O, LUPUS #### The performing lab is in the report. #### NSEO #### [facility] #### HEMDF, LDH3, BMP3, MG3, PT, CEA2 #### [facility] [address] [place] #### B2GPM, B2GPA, B2GPG #### [address] Urea nitrogen [Mass/Vol] 16 mg/dL Normal 7-17 [facility] Comment on above: Performed By: #### C A19O, LUPUS #### The performing lab is in the report. #### NSEO #### [facility] #### HEMDF, LDH3, BMP3, MG3, PT, CEA2 #### [place] [address] [place] [address] #### B2GPM, B2GPA, B2GPG #### [address] Anion gap [Moles/Vol] 5 mmol/L Normal 3-13 [facility] Comment on above: Performed By: #### C A19O, LUPUS #### The performing lab is in the report. #### NSEO #### [facility] #### HEMDF, LDH3, BMP3, MG3, PT, CEA2 #### [address] [place] #### B2GPM, B2GPA, B2GPG #### [address] Bilirubin [Mass/Vol] 0.4 mg/dL Normal 0.2-1.3 [facility] Comment on above: Performed By: #### C A19O, LUPUS #### The performing lab is in the report. #### NSEO #### [facility] #### HEMDF, LDH3, BMP3, MG3, PT, CEA2 #### [address] [place] #### B2GPM, B2GPA, B2GPG #### [address] CO2 [Moles/Vol] 29 mmol/L Normal 22-30 [facility] Comment on above: Performed By: #### C A19O, LUPUS #### The performing lab is in the report. #### NSEO #### [facility] #### HEMDF, LDH3, BMP3, MG3, PT, CEA2 #### [address] [place] #### B2GPM, B2GPA, B2GPG #### [address] [place], [place] Creatinine [Mass/Vol] 0.71 mg/dL Normal 0.52-1.25 [facility] Comment on above: Performed By: #### C A19O, LUPUS #### The performing lab is in the report. #### NSEO #### [facility] #### HEMDF, LDH3, BMP3, MG3, PT, CEA2 #### [facility] [address] [place] [address] #### B2GPM, B2GPA, B2GPG #### [address] eGFR OTHER > 90.0 Normal >60 [facility] Comment on above: Result Comment: KDIG [...] HEMDF, LDH3, BMP3, MG3, PT, CEA2 #### [facility] [address] [place] [address] #### B2GPM, B2GPA, B2GPG #### [address] GFR/1.73 sq M.predicted among blacks MDRD (S/P/Bld) [Vol rate/Area] mL/min/{1.73_m2} Normal >60 [facility] Comment on above: Performed By: #### C A19O, LUPUS #### The performing lab is in the report. #### NSEO #### [facility] #### HEMDF, LDH3, BMP3, MG3, PT, CEA2 #### [place] [address] [place] [address] #### B2GPM, B2GPA, B2GPG #### [address] Protein [Mass/Vol] 7.1 g/dL Normal 6.3-8.2 [facility] Comment on above: Performed By: #### C A19O, LUPUS #### The performing lab is in the report. #### NSEO #### [facility] #### HEMDF, LDH3, BMP3, MG3, PT, CEA2 #### [address] [place] [address] #### B2GPM, B2GPA, B2GPG #### [address] Potassium [Moles/Vol] 3.5 mmol/L Normal 3.5-5.1 [facility] Comment on above: Performed By: #### C A19O, LUPUS #### The performing lab is in the report. #### NSEO #### [facility] #### HEMDF, LDH3, BMP3, MG3, PT, CEA2 #### [address] [place] [address] #### B2GPM, B2GPA, B2GPG #### [address] Sodium [Moles/Vol] 138 mmol/L Normal 135-145 [facility] Comment on above: Performed By: #### C A19O, LUPUS #### The performing lab is in the report. #### NSEO #### [facility] #### HEMDF, LDH3, BMP3, MG3, PT, CEA2 #### [place] [address] [place] [address] #### B2GPM, B2GPA, B2GPG #### [address] Albumin [Mass/Vol] 3.7 g/dL Normal 3.5-5.0 [facility] Comment on above: Performed By: #### C A19O, LUPUS #### The performing lab is in the report. #### NSEO #### [facility] #### HEMDF, LDH3, BMP3, MG3, PT, CEA2 #### [place] [address] [place] [address] #### B2GPM, B2GPA, B2GPG #### [address] Chloride [Moles/Vol] 104 mmol/L Normal 98-107 [facility] Comment on above: Performed By: #### C A19O, LUPUS #### The performing lab is in the report. #### NSEO #### [facility] #### HEMDF, LDH3, BMP3, MG3, PT, CEA2 #### [address] [place] [address] #### B2GPM, B2GPA, B2GPG #### [address] Comprehensive Metabolic Pane kiel 10-28-2021 Albumin [Mass/Vol] 3.7 g/dL 3.5 - 5.0 g/dL [facility] Work Phone: ALP (Bld) [Catalytic activity/Vol] 103 U/L 38 - 126 U/L [facility] Work Phone: ALT [Catalytic activity/Vol] 26 U/L 0 - 49 U/L [facility] Work Phone: Comment on above: The ALT test is perf ormed by an updated assay method. Please note that the reference intervals have been changed and are now sex specific. Anion gap [Moles/Vol] 5 mmol/L 3 - 13 mmol/L [facility] Work Phone: [phone] AST [Catalytic activity/Vol] 24 U/L 15 - 46 U/L [facility] Work Phone: [phone] Bilirubin [Mass/Vol] 0.4 mg/dL 0.2 - 1 .3 mg/dL [facility] Work Phone: ) 222 Calcium [Mass/Vol] 9.1 mg/dL 8.4 - 10. 4 mg/dL [facility] Work Phone: ) 222 Chloride [Moles/Vol] 104 mmol/L 98 - 10 7 mmol/L [facility] Work Phone: () 222 CO2 [Moles/Vol] 29 mmol/L 22 - 30 mmol/L [facility] Work Phone: Creatinine [Mass/Vol] 0.71 mg/dL 0.52 - 1.25 mg/dL [facility] Work Phone: [phone] IF NonAfrican Macanese >90.0 >60 mL/min [facility] Work Phone: Comment on above: [...] 7.1 g/dL 6.3 - 8.2 g/dL [facility] Work Phone: [phone] GFR/1.73 sq M.predicted among blacks MDRD (S/P/Bld) [Vol rate/Area] mL/min/{1.73_m2} >60 mL/min [facility] Work Phone: Glucose [Mass/Vol] 117 mg/dL High 70 - 100 mg/dL [facility] Work Phone: [phone] Interpretation and review of laboratory results Abnormal [facility] Work Phone: [phone] Potassium [Moles/Vol] 3.5 mmol/L 3.5 - 5.1 mmol/L [facility] Work Phone: [phone] Sodium [Moles/Vol] 138 mmol/L 135 - 145 mmol/L [facility] Work Phone: [phone] Urea nitrogen (BldV) [Mass/Vol] 16 mg/dL 7 - 17 mg/dL [facility] Work Phone: [phone] Test Performed by [facility], [address] [place], [place] [address] [place] [address] LAB [facility] Work Phone: [phone] Hemogramon 10-28-2021 Erythrocyte distribution width (RBC) [Ratio] 17.1 % High 11.5-14.5 [facility] Comment on above: Performed By: #### C A19O, LUPUS #### The performing lab is in the report. #### NSEO #### [facility] #### HEMDF, LDH3, BMP3, MG3, PT, CEA2 #### [address] [address] #### B2GPM, B2GPA, B2GPG #### [address] Hematocrit (Bld) [Volume fraction] 33.4 % Low 40.0-52.0 [facility] Comment on above: Performed By: #### C A19O, LUPUS #### The performing lab is in the report. #### NSEO #### [facility] #### HEMDF, LDH3, BMP3, MG3, PT, CEA2 #### [address] [address] #### B2GPM, B2GPA, B2GPG #### [address] Hemoglobin (Bld) [Mass/Vol] 11.0 g/dL Low 13.0-18.0 [facility] Comment on above: Performed By: #### C A19O, LUPUS #### The performing lab is in the report. #### NSEO #### [facility] #### HEMDF, LDH3, BMP3, MG3, PT, CEA2 #### [facility] [address] [place] [address] #### B2GPM, B2GPA, B2GPG #### [address] MCH (RBC) [Entitic mass] 27.8 pg Normal 26.0-34.0 [facility] Comment on above: Performed By: #### C A19O, LUPUS #### The performing lab is in the report. #### NSEO #### [facility] #### HEMDF, LDH3, BMP3, MG3, PT, CEA2 #### [address] [place] [address] #### B2GPM, B2GPA, B2GPG #### [address] MCHC 32.8 % Normal 32.0-36.0 [facility] Comment on above: Performed By: #### C A19O, LUPUS #### The performing lab is in the report. #### NSEO #### [facility] #### HEMDF, LDH3, BMP3, MG3, PT, CEA2 #### [address] [place] [address] #### B2GPM, B2GPA, B2GPG #### [address] MCV (RBC) [Entitic vol] 84.8 fL Normal 80.0-98.0 [facility] Comment on above: Performed By: #### C A19O, LUPUS #### The performing lab is in the report. #### NSEO #### [facility] #### HEMDF, LDH3, BMP3, MG3, PT, CEA2 #### [facility] [address] [place] [address] #### B2GPM, B2GPA, B2GPG #### [address] Platelet mean volume (Bld) [Entitic vol] 8.3 fL Normal 7.4-12.4 [facility] Comment on above: Result Comment: MPV is a calculated measurement using platelet volume ratio. Performed By: #### C A19O, LUPUS #### The performing lab is in the report. #### NSEO #### [facility] #### HEMDF, LDH3, BMP3, MG3, PT, CEA2 #### [place] [address] [place] #### B2GPM, B2GPA, B2GPG #### [address] Platelets (Bld) [#/Vol] 344 10*3/uL Normal 140-440 [facility] Comment on above: Performed By: #### C A19O, LUPUS #### The performing lab is in the report. #### NSEO #### [facility] #### HEMDF, LDH3, BMP3, MG3, PT, CEA2 #### [address] [place] #### B2GPM, B2GPA, B2GPG #### [address] RBC (Bld) [#/Vol] 3.94 10*6/uL Low 4.40-5.90 [facility] Comment on above: Performed By: #### C A19O, LUPUS #### The performing lab is in the report. #### NSEO #### [facility] #### HEMDF, LDH3, BMP3, MG3, PT, CEA2 #### [place] [address] [place] #### B2GPM, B2GPA, B2GPG #### [place] [address] [place] [address] WBC (Bld) [#/Vol] 10.0 10*3/uL Normal 3.6-10.7 [facility] Comment on above: Performed By: #### C A19O, LUPUS #### The performing lab is in the report. #### NSEO #### [facility] #### HEMDF, LDH3, BMP3, MG3, PT, CEA2 #### [facility] [address] [place] [address] #### B2GPM, B2GPA, B2GPG #### [facility] [address] [place] [address] Neuron Specific Enolaseon Neuron Specific Enolase 20.8 Normal [facility] Comment on above: Result Comment: Neur on Specific Enolase, Serum 20.8 ng/mL H (Ref Interval: <=12.7) NSE and Hgb are elevated in the specimen. The elevated NSE may be a result of hemolysis as NSE is expressed in red blood cells. Interpret results with caution. INTERPRETIVE INFORMATION: Neuron Specific Enolase in Serum This assay is performed using the [employer] NSE Kryptor Immunoassay. Results obtained with different assay methods or kits cannot be used interchangeably. Results cannot be interpreted as absolute evidence of the presence or absence of malignant disease. This test was developed and its performance characteristics determined by [employer]. It has not been cleared or approved by the [place] Food and Drug Administration. This test was performed in a CLIA certified laboratory and is intended for clinical purposes. Performed By: #### C OVAG #### [facility] [address] [place] [address] Neuron specific enolase (NSE )on 10-28-2021 Neuron Specific Enolase 20.8 [facility] Work Phone: Comment on above: Neuron Specific Enol ase, Serum 20.8 ng/mL H (Ref Interval: <=12.7) NSE and Hgb are elevated in the specimen. The elevated NSE may be a result of hemolysis as NSE is expressed in red blood cells. Interpret results with caution. INTERPRETIVE INFORMATION: Neuron Specific Enolase in Serum This assay is performed using the [employer] NSE Kryptor Immunoassay. Results obtained with different assay methods or kits cannot be used interchangeably. Results cannot be interpreted as absolute evidence of the presence or absence of malignant disease. This test was developed and its performance characteristics determined by [employer] It has not been cleared or approved by the [place] Food and Drug Administration. This test was performed in a CLIA certified laboratory and is intended for clinical purposes. 1 [facility] LAB [facility] Work Phone: Prothrombin Timeon 2 INR 3.1 High 0.9-1.1 [facility] Comment on above: Result Comment: Harry [...] HEMDF, LDH3, BMP3, MG3, PT, CEA2 #### [facility] [address] [place] [address] #### B2GPM, B2GPA, B2GPG #### [place] [address] [place], [place] PT Coag (PPP) [Time] 30.8 s High 9.0-12.0 [facility] Comment on above: Result Comment: . Performed By: #### C A19O, LUPUS #### The performing lab is in the report. #### NSEO #### [facility] #### HEMDF, LDH3, BMP3, MG3, PT, CEA2 #### [facility] [address] [place] [address] #### B2GPM, B2GPA, B2GPG #### [address] [address] Protime-INRon 10-28-2021 INR Coag (Bld) [Relative time] 3.1 {INR} High [facility] Work Phone: Comment on above: [...] and review of laboratory results Abnormal [facility] Work Phone: PT Coag (PPP) [Time] 30.8 s High 9.0 - 12.0 s [facility] Work Phone: Comment on above: . Test Performed by [facility], [address] LAB [facility] Work Phone: MRI BRAIN WO CONTRASTon 10-06 Patient Name: ANDREW SIFUENTES Magnetic Resonance Imaging ACCESSION EXAM DATE/TIME PROCEDURE ORDERING PROVIDER [id number] 10/27/2021 13:14 EDT MRI Brain w/o Contrast UNASSIGNED, UNASSIGNED CPT code 96843 Reason For Exam (MRI Brain w/o Contrast) stroke Patient has SHEET METAL SHOP SUPERVISOR shunt in place, please follow Radiology [...] OSAMA Transcribed Date and Time: 10/27/2021 2:39 [facility] Venus Loyd MD - 10/27/2021 [id number] ACCESSION EXAM DATE/TIME PROCEDURE ORDERING PROVIDER [id number] 10/27/2021 13:14 EDT MRI Brain w/o Contrast UNASSIGNED, UNASSIGNED CPT code 15196 Reason For Exam (MRI Brain w/o Contrast) stroke Patient has SHEET METAL SHOP SUPERVISOR shunt in place, please follow Radiology [...] Brain w/o Contrast [facility]: [id number] Imaging ACCESSION EXAM DATE/TIME PROCEDURE ORDERING PROVIDER [id number] 10/27/2021 13:14 EDT MRI Brain w/o Contrast UNASSIGNED, UNASSIGNED CPT code 49648 Reason For Exam (MRI Brain w/o Contrast) stroke Patient has SHEET METAL SHOP SUPERVISOR shunt in place, please follow Radiology [...] Transcribed Date and Time: 10/27/2021 2:39 Normal [facility] Prothrombin Timeon 2 INR 2.1 High 0.9-1.1 [facility] Comment on above: Result Comment: Harry [...] Infarction Performed By: #### P T #### [facility] [address] [place] [address] PT Coag (PPP) [Time] 21.9 s High 9.0-12.0 [facility] Work Phone: Comment on above: . Result Comment: . Performed By: #### P T #### [facility] [address] [place] [address] Protime-INRon 10-27-2021 INR Coag (Bld) [Relative time] 2.1 {INR} High [facility] Work Phone: Comment on above: [...] and review of laboratory results Abnormal [facility] Work Phone: Test Performed by [facility], [address], [place], [place] [address] [facility] LAB [facility] Work Phone: CT HEAD WO CONTRASTon 2021 Patient Name: ANDREW SIFUENTES Computed Tomography ACCESSION EXAM DATE/TIME PROCEDURE ORDERING PROVIDER [id number] 10/26/2021 11:[address] Head or Brain w/o JUNIE PINEDA ALLISON Contrast CPT code 86723 Reason For Exam (CT Head or Brain w/o Contrast) hydrocephalus. thank you Report CLINICAL INFORMATION: Hydrocephalus. Shunt. 3 mm axial cuts through the head are obtained without IV contrast. The examination is compared to a previous study dated 06/29/2014. FINDINGS: Old SHEET METAL SHOP SUPERVISOR shunt tubing is noted bilaterally. The [...] are clear. IMPRESSION: 1. Old and new SHEET METAL SHOP SUPERVISOR shunt tubing. 2. No hydrocephalus. 3. [...] Tomography ACCESSION EXAM DATE/TIME PROCEDURE ORDERING PROVIDER [id number] 10/26/2021 11:[address] Head or Brain w/o JUNIE PINEDA, SARINA Contrast CPT code 77048 Reason For Exam (CT Head or Brain w/o Contrast) hydrocephalus. thank you Report CLINICAL INFORMATION: Hydrocephalus. Shunt. 3 mm axial cuts through the head are obtained without IV contrast. The examination is compared to a previous study dated 06/29/2014. FINDINGS: Old SHEET METAL SHOP SUPERVISOR shunt tubing is noted bilaterally. The [...] are clear. IMPRESSION: 1. Old and new SHEET METAL SHOP SUPERVISOR shunt tubing. 2. No hydrocephalus. 3. [...] Tomography ACCESSION EXAM DATE/TIME PROCEDURE ORDERING PROVIDER [id number] 10/26/2021 11:[address] Head or Brain w/o JUNIE PINEDA, SARINA Contrast CPT code 20382 Reason For Exam (CT Head or Brain w/o Contrast) hydrocephalus. thank you Report CLINICAL INFORMATION: Hydrocephalus. Shunt. 3 mm axial cuts through the head are obtained without IV contrast. The examination is compared to a previous study dated 06/29/2014. FINDINGS: Old SHEET METAL SH[employer] SUPERVISOR shunt tubing is noted bilaterally. The [...] are clear. IMPRESSION: 1. Old and new SHEET METAL SHOP SUPERVISOR shunt tubing. 2. No hydrocephalus. 3. Atrophy and evidence of small-vessel ischemic disease. 4. No CT evidence of an acute intracranial process. Report Dictated on Final Dictating Physician: MD SOLANO JEFFREY Signed Date and Time: 10/26/2021 11:42 am Signed by: MD XIOMARA, ALBERT Transcribed Date and Time: 10/26/2021 11:43 Normal [facility] EEG awake and asleepon 10-26 Bony Tompkins MD 10/26/2021 4:06 PM [facility] [address] [facility] [place] [address] ROUTINE EEG REPORT Patient Name: Andrew Sifuentes : 1950 Date of Study: 10/26/2021 Duration Recorded: 23 minutes EEG#: [id number] CHILD SUPPORT AGENT: CASTRO PROVIDER REQUESTING STUDY: Dr. Barreto REASON FOR EXAM: seizures HISTORY: Andrew Sifuentes is a 71 y.o. 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 At present patient is awake, follows commands, was able to tell his name, and that he was in hospital but not oriented to time. Per documentation patient had NCSE in May 2021, was on Vimpat, but it was discontinued as there was no evidence of recurrent seizures in July 2021 by Neurology at [facility], per daughter patient was on Dilantin [...] tablet 10 mg 10 mg Oral TID aMy Cash MD 10 mg at 10/26/21 1445 [...] electrodes were positioned in person by an sonography technologist, following patient education, according to the 10-20 International system of electrode placement and maintained for integrity and quality of the recording. EEG data with video was recorded continuously and digitally stored. The sonography technologist reviewed all automated detections and manual [...] No normal vari (more content not included)... [employer] Work Phone: [employer] Work Phone: No Panel Informationon 10-26 Radiology Study observation (narrative) [employer] Phone: Prothrombin Timeon 2 INR 1.9 High 0.9-1.1 [facility] Comment on above: Result Comment: Harry [...] Infarction Performed By: #### C OVAG #### [facility] [address] [place] [address] PT Coag (PPP) [Time] 19.7 s High 9.0-12.0 [employer] Comment on above: Result Comment: . Performed By: #### C OVAG #### [facility] [address] [place] [address] Protime-INRon 10-26-2021 INR Coag (Bld) [Relative time] [...] and review of laboratory results Abnormal [facility] Work Phone: PT Coag (PPP) [Time] 19.7 s High 9.0 - 12.0 s [facility] Work Phone: Comment on above: . Test Performed by [facility], [address] [facility] [place], [place] [address] [facility] LAB [facility] Work Phone: CA 19-9on 10-25-2021 CA 19-9 17 U/mL Normal <=35 [facility] Work Phone: Comment on above: [...] or absence of malignant disease. Performed By: [facility] [place] [address] Senior Java Engineer: Quiana Castro MD Result Comment: INTE [...] or absence of malignant disease. Performed By: [facility] [place] [address] Senior Java Engineer: Quiana Castro MD Performed By: #### C OVAG #### [facility] [employer] [facility] [address] [place] [address] Cancer Antigen 19-9on 2021 [facility] Work Phone: Prothrombin Timeon 2 INR 1.5 High 0.9-1.1 [facility] Comment on above: Result Comment: Harry [...] Infarction Performed By: #### P T #### [facility] [address] [facility] [place] [address] PT Coag (PPP) [Time] 15.6 s High 9.0-12.0 [facility] Comment on above: Result Comment: . Performed By: #### P T #### [facility] [address] [place] [address] Protime-INRon 10-25-2021 INR Coag (Bld) [Relative time] 1.5 {INR} High [facility] Work Phone: Comment on above: [...] and review of laboratory results Abnormal [facility] Work Phone: PT Coag (PPP) [Time] 15.6 s High 9.0 - 12.0 s [facility] Work Phone: Comment on above: . Test Performed by [facility], [address] [place], [place] [address] [facility] Work Phone: B-2 Glycoprotein [...] HEMDF, LDH3, BMP3, MG3, PT, CEA2 #### [facility] [address] [place] [address] #### B2GPM, B2GPA, B2GPG #### [facility] [address] [place] [address] Calcium [Mass/Vol] 8.8 mg/dL Normal 8.4-10.4 [facility] Comment on above: Performed By: #### C A19O, LUPUS #### The performing lab is in the report. #### NSEO #### [facility] #### HEMDF, LDH3, BMP3, MG3, PT, CEA2 #### [facility] [address] [place] [address] #### B2GPM, B2GPA, B2GPG #### [address] CO2 [Moles/Vol] 25 mmol/L Normal 22-30 [facility] Comment on above: Performed By: #### C A19O, LUPUS #### The performing lab is in the report. #### NSEO #### [facility] #### HEMDF, LDH3, BMP3, MG3, PT, CEA2 #### [facility] [address] [place] [address] #### B2GPM, B2GPA, B2GPG #### [address] Creatinine [Mass/Vol] 0.74 mg/dL Normal 0.52-1.25 [facility] Comment on above: Performed By: #### C A19O, LUPUS #### The performing lab is in the report. #### NSEO #### [facility] #### HEMDF, LDH3, BMP3, MG3, PT, CEA2 #### [facility] [address] [place] [address] #### B2GPM, B2GPA, B2GPG #### [address] eGFR OTHER > 90.0 Normal >60 [facility] Comment on above: Result Comment: KDIG [...] HEMDF, LDH3, BMP3, MG3, PT, CEA2 #### [facility] [address] [place] [address] #### B2GPM, B2GPA, B2GPG #### [address] GFR/1.73 sq M.predicted among blacks MDRD (S/P/Bld) [Vol rate/Area] mL/min/{1.73_m2} Normal >60 [facility] Comment on above: Performed By: #### C A19O, LUPUS #### The performing lab is in the report. #### NSEO #### [facility] #### HEMDF, LDH3, BMP3, MG3, PT, CEA2 #### [address] [place] [address] #### B2GPM, B2GPA, B2GPG #### [address] Glucose [Mass/Vol] 116 mg/dL High 70-100 [facility] Comment on above: Performed By: #### C A19O, LUPUS #### The performing lab is in the report. #### NSEO #### [facility] #### HEMDF, LDH3, BMP3, MG3, PT, CEA2 #### [address] [place] [address] #### B2GPM, B2GPA, B2GPG #### [address] Urea nitrogen [Mass/Vol] 19 mg/dL High 7-17 [facility] Comment on above: Performed By: #### C A19O, LUPUS #### The performing lab is in the report. #### NSEO #### [facility] #### HEMDF, LDH3, BMP3, MG3, PT, CEA2 #### [facility] [address] [place] [address] #### B2GPM, B2GPA, B2GPG #### [address] Chloride [Moles/Vol] 107 mmol/L Normal 98-107 [facility] Comment on above: Performed By: #### C A19O, LUPUS #### The performing lab is in the report. #### NSEO #### [facility] #### HEMDF, LDH3, BMP3, MG3, PT, CEA2 #### [place] [address] [place] [address] #### B2GPM, B2GPA, B2GPG #### [address] Potassium [Moles/Vol] 3.9 mmol/L Normal 3.5-5.1 [facility] Comment on above: Performed By: #### C A19O, LUPUS #### The performing lab is in the report. #### NSEO #### [facility] #### HEMDF, LDH3, BMP3, MG3, PT, CEA2 #### [place] [address] [place] [address] #### B2GPM, B2GPA, B2GPG #### [address] Sodium [Moles/Vol] 140 mmol/L Normal 135-145 [facility] Comment on above: Performed By: #### C A19O, LUPUS #### The performing lab is in the report. #### NSEO #### [facility] #### HEMDF, LDH3, BMP3, MG3, PT, CEA2 #### [place] [address] [place] [address] #### B2GPM, B2GPA, B2GPG #### [address] Anion gap [Moles/Vol] 8 mmol/L 3 - 13 mmol/L [facility] Calcium [Mass/Vol] 8.8 mg/dL 8.4 - 10. 4 mg/dL [facility] Chloride [Moles/Vol] 107 mmol/L 98 - 10 7 mmol/L [facility] CO2 [Moles/Vol] 25 mmol/L 22 - 30 mmol/L [facility] Creatinine [Mass/Vol] 0.74 mg/dL 0.52 - 1.25 mg/dL [facility] EGFR IF NonAfrican Macanese >90.0 >60 mL/min [facility] Comment on above: KDIGO guidelines [...] mg/dL High 70 - 100 mg/dL [facility] Interpretation and review of laboratory results Abnormal [facility] Potassium [Moles/Vol] 3.9 mmol/L 3.5 - 5.1 mmol/L [facility] Sodium [Moles/Vol] 140 mmol/L 135 - 145 mmol/L [facility] Urea nitrogen (BldV) [Mass/Vol] 19 mg/dL High 7 - 17 mg/dL [facility] Test Performed by [facility], [address] [place] [address] [facility] Beta-2 Glycoprotein I IgAon 10-24-2021 Beta-2 Glycoprotein I IgA < 2.0 Normal [facility] Comment on above: Result Comment: Inte rpretive Information: Results equal to or greater than 20 U/mL = POSITIVE Results less than 20 U/mL = NEGATIVE Performed By: #### C OVAG #### [facility] [address] [place] [address] Beta-2 Glycoprotein I IgGon 10-24-2021 Beta-2 Glycoprotein I IgG < 1.4 Normal [facility] Comment on above: Result Comment: Inte rpretive Information: Results equal to or greater than 20 U/mL = POSITIVE Results less than 20 U/mL = NEGATIVE Performed By: #### C OVAG #### [facility] [address] [place] [address] Beta-2 Glycoprotein I IgMon 10-24-2021 Beta-2 Glycoprotein I IgM < 1.5 Normal [facility] Comment on above: Result Comment: Inte rpretive Information: Results equal to or greater than 20 U/mL = POSITIVE Results less than 20 U/mL = NEGATIVE Performed By: #### C OVAG #### [facility] [address] [place] [address] No Panel Informationon 10-24 [facility] Test Performed by [facility], [address] [place] [id number] [facility] Work Phone: PROTEIN C FUNCTIONALon 10-24 Interpretation and review of laboratory results Abnormal [facility] Protein C-Functional 185 % High [...] reference intervals for this test in the [facility] ([employer]). Performed by [employer] [address] [place] [address] [email or web address], Quiana Castro MD - Lab. Director Protein [...] reference intervals for this test in the [facility] ([employer]). Performed by [employer] [address] [facility] [place] [address] [email or web address], Quiana Castro MD - Lab. Director Performed By: #### P T #### [employer] [facility] [address] [place] [address] Protein S, Functionalon 10-06 Protein S, Functional [...] reference intervals for this test in the [facility] ([employer]). Performed by [employer] [address] [facility] [place] [address] [email or web address], Quiana Castro MD - Lab. Director Result [...] reference intervals for this test in the [facility] ([employer]). Performed by [employer] [address] [facility] [place] [address] [email or web address], Quiana Castro MD - Lab. Director Performed By: #### P T #### [employer] [facility] [address] [place] [address] Prothrombin Timeon INR 1.2 High 0.9-1.1 [facility] Comment on above: Result Comment: Harry [...] HEMDF, LDH3, BMP3, MG3, PT, CEA2 #### [facility] [address] [place] [address] #### B2GPM, B2GPA, B2GPG #### [address] [id number] PT Coag (PPP) [Time] 12.6 s High 9.0-12.0 [facility] Comment on above: Result Comment: . Performed By: #### C A19O, LUPUS #### The performing lab is in the report. #### NSEO #### [facility] #### HEMDF, LDH3, BMP3, MG3, PT, CEA2 #### [facility] [address] [place] [address] #### B2GPM, B2GPA, B2GPG #### [address] [phone] Protime-INRon 10-24-2021 INR Coag (Bld) [Relative time] 1.2 {INR} High [facility] Comment on above: Recommended Anticoag [...] and review of laboratory results Abnormal [facility] PT Coag (PPP) [Time] 12.6 s High 9.0 - 12.0 s [facility] Comment on above: . Test Performed by [facility], [address] [place] [address] [facility] Basic Metabolic Panelon - Anion gap [Moles/Vol] 10 mmol/L Normal 3-13 [facility] Comment on above: Performed By: #### C A19O, LUPUS #### The performing lab is in the report. #### NSEO #### [facility] #### HEMDF, LDH3, BMP3, MG3, PT, CEA2 #### [facility] [address] [place] [address] #### B2GPM, B2GPA, B2GPG #### [address] [address] Calcium [Mass/Vol] 9.6 mg/dL Normal 8.4-10.4 [facility] Comment on above: Performed By: #### C A19O, LUPUS #### The performing lab is in the report. #### NSEO #### [facility] #### HEMDF, LDH3, BMP3, MG3, PT, CEA2 #### [facility] [address] [place] [address] #### B2GPM, B2GPA, B2GPG #### [address] [phone] CO2 [Moles/Vol] 27 mmol/L Normal 22-30 [facility] Comment on above: Performed By: #### C A19O, LUPUS #### The performing lab is in the report. #### NSEO #### [facility] #### HEMDF, LDH3, BMP3, MG3, PT, CEA2 #### [facility] [address] [place] [address] #### B2GPM, B2GPA, B2GPG #### [address] Glucose [Mass/Vol] 109 mg/dL High 70-100 [facility] Comment on above: Performed By: #### C A19O, LUPUS #### The performing lab is in the report. #### NSEO #### [facility] #### HEMDF, LDH3, BMP3, MG3, PT, CEA2 #### [address] [place] [address] #### B2GPM, B2GPA, B2GPG #### [address] Urea nitrogen [Mass/Vol] 18 mg/dL High 7-17 [facility] Comment on above: Performed By: #### C A19O, LUPUS #### The performing lab is in the report. #### NSEO #### [facility] #### HEMDF, LDH3, BMP3, MG3, PT, CEA2 #### [address] [place] #### B2GPM, B2GPA, B2GPG #### [address] Creatinine [Mass/Vol] 0.82 mg/dL Normal 0.52-1.25 [facility] Comment on above: Performed By: #### C A19O, LUPUS #### The performing lab is in the report. #### NSEO #### [facility] #### HEMDF, LDH3, BMP3, MG3, PT, CEA2 #### [address] [place] #### B2GPM, B2GPA, B2GPG #### [address] GFR/1.73 sq M.predicted among blacks MDRD (S/P/Bld) [Vol rate/Area] mL/min/{1.73_m2} Normal >60 [facility] Comment on above: Performed By: #### C A19O, LUPUS #### The performing lab is in the report. #### NSEO #### [facility] #### HEMDF, LDH3, BMP3, MG3, PT, CEA2 #### [facility] [address] [place] [address] #### B2GPM, B2GPA, B2GPG #### [facility] [address] [place] [address] GFR/1.73 sq M.predicted among non-blacks MDRD (S/P/Bld) [Vol rate/Area] 89.9 mL/min/{1.73_m2} Normal >60 [facility] Comment on above: Result Comment: KDIG [...] HEMDF, LDH3, BMP3, MG3, PT, CEA2 #### [facility] [address] [place] [address] #### B2GPM, B2GPA, B2GPG #### [facility] [address] [place], [place] Chloride [Moles/Vol] 104 mmol/L Normal 98-107 [facility] Comment on above: Performed By: #### C A19O, LUPUS #### The performing lab is in the report. #### NSEO #### [facility] #### HEMDF, LDH3, BMP3, MG3, PT, CEA2 #### [place] [address] [place] [address] #### B2GPM, B2GPA, B2GPG #### [address] Potassium [Moles/Vol] 3.9 mmol/L Normal 3.5-5.1 [facility] Comment on above: Performed By: #### C A19O, LUPUS #### The performing lab is in the report. #### NSEO #### [facility] #### HEMDF, LDH3, BMP3, MG3, PT, CEA2 #### [place] [address] [place] [address] #### B2GPM, B2GPA, B2GPG #### [address] Sodium [Moles/Vol] 142 mmol/L Normal 135-145 [facility] Comment on above: Performed By: #### C A19O, LUPUS #### The performing lab is in the report. #### NSEO #### [facility] #### HEMDF, LDH3, BMP3, MG3, PT, CEA2 #### [address] [place] [address] #### B2GPM, B2GPA, B2GPG #### [address] Anion gap [Moles/Vol] 10 mmol/L 3 - 13 mmol/L [facility] Work Phone: [phone] Calcium [Mass/Vol] 9.6 mg/dL 8.4 - 10. 4 mg/dL [facility] Work Phone: [phone] Chloride [Moles/Vol] 104 mmol/L 98 - 10 7 mmol/L [facility] Work Phone: [phone] CO2 [Moles/Vol] 27 mmol/L 22 - 30 mmol/L [facility] Work Phone: [phone] Creatinine [Mass/Vol] 0.82 mg/dL 0.52 - 1.25 mg/dL [employer] Work Phone: [phone] EGFR IF NonAfrican Macanese 89.9 mL/min >60 [facility] Work Phone: [phone] Comment on above: KDIGO guidelines pro [...] (S/P/Bld) [Vol rate/Area] mL/min/{1.73_m2} >60 mL/min [facility] Work Phone: [phone] Glucose [Mass/Vol] 109 mg/dL High 70 - 100 mg/dL [facility] Work Phone: [phone] Interpretation and review of laboratory results Abnormal [facility] Work Phone: [phone] Potassium [Moles/Vol] 3.9 mmol/L 3.5 - 5.1 mmol/L [facility] Work Phone: [phone] Sodium [Moles/Vol] 142 mmol/L 135 - 145 mmol/L [facility] Work Phone: [phone] Urea nitrogen (BldV) [Mass/Vol] 18 mg/dL High 7 - 17 mg/dL [facility] Work Phone: [phone] CBC with Auto Differentialon 10-23-2021 Absolute Baso # 0.1 10*3/uL 0.0 - 0.2 10*3/uL [facility] Work Phone: Absolute Neut # 6.6 10*3/uL 1.8 - 7.0 10*3/uL [facility] Work Phone: [phone] Basophils/100 WBC (Bld) 1.1 % 0.0 - 2.0 % [email or web address] Work Phone: [phone] Eosinophils (Bld) [#/Vol] 0.4 10*3/uL 0.0 - 0.5 10*3/uL [facility] Work Phone: [phone] Eosinophils/100 WBC (Bld) 3.9 % 1.0 - 6.0 % [employer] Work Phone: [phone] Granulocytes/100 WBC (Bld) 64.0 % 40.0 - 80.0 % [email or web address] Work Phone: [phone] Hematocrit (Bld) [Volume fraction] 35.1 % Low 40.0 - 52.0 % [email or web address] Work Phone: [phone] Hemoglobin (Bld) [Mass/Vol] 11.6 g/dL Low 13.0 - 18.0 g/dL [email or web address] Work Phone: [phone] Interpretation and review of laboratory results Abnormal [facility] Work Phone: [phone] Lymphocytes (Bld) [#/Vol] 2.6 10*3/uL 1.0 - 4.3 10*3/uL [employer] Work Phone: [phone] Lymphocytes/100 WBC (Bld) 25.0 % 20.0 - 40.0 % [employer] Work Phone: [phone] MCH (RBC) [Entitic mass] 28.4 pg 26.0 - 34.0 pg [facility] Work Phone: [phone] MCHC (RBC) [Mass/Vol] 33.1 % 32.0 - 36.0 % [facility] Work Phone: [phone] MCV (RBC) [Entitic vol] 85.9 fL 80.0 - 98.0 fL [employer] Work Phone: [phone] Monocytes (Bld) [#/Vol] 0.6 10*3/uL 0.0 - 0.8 10*3/uL [facility] Work Phone: [phone] Monocytes/100 WBC (Bld) 6.0 % 2.0 - 10.0 % [facility] Work Phone: [phone] Platelet distribution width (Bld) [Ratio] 17.4 % High 11.5 - 14.5 % [facility] Work Phone: [phone] Platelet mean volume (Bld) [Entitic vol] 8.1 fL 7.4 - 12.4 fL [facility] Work Phone: [phone] Comment on above: MPV is a calculated measurement using platelet volume ratio. Platelets (Bld) [#/Vol] 450 10*3/uL High 140 - 440 10*3/uL [facility] Work Phone: [phone] RBC (Bld) [#/Vol] 4.08 10*6/uL Low 4.40 - 5.9 0 10*6/uL [facility] Work Phone: [phone] WBC (Bld) [#/Vol] 10.3 10*3/uL 3.6 - 10.7 10*3/uL [facility] Work Phone: [phone] Test Performed by [facility], [address], [place] [id number] [place] [address] LAB [facility] Work Phone: [phone] CEAon 10-23-2021 CEA 0.8 ng/mL 0.0 - 3.0 ng/mL [facility] Work Phone: [phone] Test Performed by [facility], [address] [place], [place] [id number] [place] [address] LAB [facility] Work Phone: [phone] Carcinoembryonic Agon 2021 Carcinoembryonic Ag. 0.8 ng/mL Normal 0.0-3.0 [facility] Comment on above: Performed By: #### C A19O, LUPUS #### The performing lab is in the report. #### NSEO #### [facility] #### HEMDF, LDH3, BMP3, MG3, PT, CEA2 #### [facility] [employer] [facility] [address] [place] [address] #### B2GPM, B2GPA, B2GPG #### [address] Hemogram w/ Autodiffon 10-23 Abs Baso Cnt 0.1 10*3/uL Normal 0.0-0.2 [facility] Comment on above: Performed By: #### C A19O, LUPUS #### The performing lab is in the report. #### NSEO #### [facility] #### HEMDF, LDH3, BMP3, MG3, PT, CEA2 #### [facility] [address] [place] #### B2GPM, B2GPA, B2GPG #### [address] Abs Neutrophile Cnt 6.6 10*3/uL Normal 1.8-7.0 [facility] Comment on above: Performed By: #### C A19O, LUPUS #### The performing lab is in the report. #### NSEO #### [facility] #### HEMDF, LDH3, BMP3, MG3, PT, CEA2 #### [facility] [address] [place] #### B2GPM, B2GPA, B2GPG #### [address] Basophils/100 WBC (Bld) 1.1 % Normal 0.0-2.0 [facility] Comment on above: Performed By: #### C A19O, LUPUS #### The performing lab is in the report. #### NSEO #### [facility] #### HEMDF, LDH3, BMP3, MG3, PT, CEA2 #### [facility] [address] [place] #### B2GPM, B2GPA, B2GPG #### [address] Eosinophils (Bld) [#/Vol] 0.4 10*3/uL Normal 0.0-0.5 [facility] Comment on above: Performed By: #### C A19O, LUPUS #### The performing lab is in the report. #### NSEO #### [facility] #### HEMDF, LDH3, BMP3, MG3, PT, CEA2 #### [facility] [address] [place] [address] #### B2GPM, B2GPA, B2GPG #### [address] [phone] Eosinophils/100 WBC (Bld) 3.9 % Normal 1.0-6.0 [facility] Comment on above: Performed By: #### C A19O, LUPUS #### The performing lab is in the report. #### NSEO #### [facility] #### HEMDF, LDH3, BMP3, MG3, PT, CEA2 #### [address] [place] #### B2GPM, B2GPA, B2GPG #### [address] [phone] Erythrocyte distribution width (RBC) [Ratio] 17.4 % High 11.5-14.5 [facility] Comment on above: Performed By: #### C A19O, LUPUS #### The performing lab is in the report. #### NSEO #### [facility] #### HEMDF, LDH3, BMP3, MG3, PT, CEA2 #### [address] [place] [address] #### B2GPM, B2GPA, B2GPG #### [address] [phone] Granulocytes/100 WBC (Bld) 64.0 % Normal 40.0-80.0 [facility] Comment on above: Performed By: #### C A19O, LUPUS #### The performing lab is in the report. #### NSEO #### [facility] #### HEMDF, LDH3, BMP3, MG3, PT, CEA2 #### [place] [address] [place], [place] #### B2GPM, B2GPA, B2GPG #### [address] Hematocrit (Bld) [Volume fraction] 35.1 % Low 40.0-52.0 [facility] Comment on above: Performed By: #### C A19O, LUPUS #### The performing lab is in the report. #### NSEO #### [facility] #### HEMDF, LDH3, BMP3, MG3, PT, CEA2 #### [facility] [address] [place] #### B2GPM, B2GPA, B2GPG #### [address] Hemoglobin (Bld) [Mass/Vol] 11.6 g/dL Low 13.0-18.0 [facility] Comment on above: Performed By: #### C A19O, LUPUS #### The performing lab is in the report. #### NSEO #### [facility] #### HEMDF, LDH3, BMP3, MG3, PT, CEA2 #### [facility] [address] [place] #### B2GPM, B2GPA, B2GPG #### [address] Lymphocytes (Bld) [#/Vol] 2.6 10*3/uL Normal 1.0-4.3 [facility] Comment on above: Performed By: #### C A19O, LUPUS #### The performing lab is in the report. #### NSEO #### [facility] #### HEMDF, LDH3, BMP3, MG3, PT, CEA2 #### [facility] [address] [place] #### B2GPM, B2GPA, B2GPG #### [address] Lymphocytes/100 WBC (Bld) 25.0 % Normal 20.0-40.0 [facility] Comment on above: Performed By: #### C A19O, LUPUS #### The performing lab is in the report. #### NSEO #### [facility] #### HEMDF, LDH3, BMP3, MG3, PT, CEA2 #### [facility] [address] [facility] [place] [address] #### B2GPM, B2GPA, B2GPG #### [address] MCH (RBC) [Entitic mass] 28.4 pg Normal 26.0-34.0 [facility] Comment on above: Performed By: #### C A19O, LUPUS #### The performing lab is in the report. #### NSEO #### [facility] #### HEMDF, LDH3, BMP3, MG3, PT, CEA2 #### [address] [place] #### B2GPM, B2GPA, B2GPG #### [address] MCHC 33.1 % Normal 32.0-36.0 [facility] Comment on above: Performed By: #### C A19O, LUPUS #### The performing lab is in the report. #### NSEO #### [facility] #### HEMDF, LDH3, BMP3, MG3, PT, CEA2 #### [facility] [address] [place] #### B2GPM, B2GPA, B2GPG #### [address] MCV (RBC) [Entitic vol] 85.9 fL Normal 80.0-98.0 [facility] Comment on above: Performed By: #### C A19O, LUPUS #### The performing lab is in the report. #### NSEO #### [facility] #### HEMDF, LDH3, BMP3, MG3, PT, CEA2 #### [facility] [address] [place] #### B2GPM, B2GPA, B2GPG #### [address] Monocytes (Bld) [#/Vol] 0.6 10*3/uL Normal 0.0-0.8 [facility] Comment on above: Performed By: #### C A19O, LUPUS #### The performing lab is in the report. #### NSEO #### [facility] #### HEMDF, LDH3, BMP3, MG3, PT, CEA2 #### [facility] [address] [place] #### B2GPM, B2GPA, B2GPG #### [address] Monocytes/100 WBC (Bld) 6.0 % Normal 2.0-10.0 [facility] Comment on above: Performed By: #### C A19O, LUPUS #### The performing lab is in the report. #### NSEO #### [facility] #### HEMDF, LDH3, BMP3, MG3, PT, CEA2 #### [facility] [address] [place] #### B2GPM, B2GPA, B2GPG #### [address] Platelet mean volume (Bld) [Entitic vol] 8.1 fL Normal 7.4-12.4 [facility] Comment on above: Result Comment: MPV is a calculated measurement using platelet volume ratio. Performed By: #### C A19O, LUPUS #### The performing lab is in the report. #### NSEO #### [facility] #### HEMDF, LDH3, BMP3, MG3, PT, CEA2 #### [facility] [address] [place] #### B2GPM, B2GPA, B2GPG #### [address] Platelets (Bld) [#/Vol] 450 10*3/uL High 140-440 [facility] Comment on above: Performed By: #### C A19O, LUPUS #### The performing lab is in the report. #### NSEO #### [facility] #### HEMDF, LDH3, BMP3, MG3, PT, CEA2 #### [facility] [address] [place] [address] #### B2GPM, B2GPA, B2GPG #### [address] RBC (Bld) [#/Vol] 4.08 10*6/uL Low 4.40-5.90 [facility] Comment on above: Performed By: #### C A19O, LUPUS #### The performing lab is in the report. #### NSEO #### [facility] #### HEMDF, LDH3, BMP3, MG3, PT, CEA2 #### [facility] [address] [place] [address] #### B2GPM, B2GPA, B2GPG #### [address] WBC (Bld) [#/Vol] 10.3 10*3/uL Normal 3.6-10.7 [facility] Comment on above: Performed By: #### C A19O, LUPUS #### The performing lab is in the report. #### NSEO #### [facility] #### HEMDF, LDH3, BMP3, MG3, PT, CEA2 #### [facility] [address] [place] [address] #### B2GPM, B2GPA, B2GPG #### [address] LDHon 10-23-2021 LDH 136 U/L Normal 120-246 [facility] Comment on above: Performed By: #### C A19O, LUPUS #### The performing lab is in the report. #### NSEO #### [facility] #### HEMDF, LDH3, BMP3, MG3, PT, CEA2 #### [facility] [employer] [facility] [address] [place] [address] #### B2GPM, B2GPA, B2GPG #### [facility] [employer] [facility] [address] [place] [address] Lactate Dehydrogenaseon 06- LD 136 U/L 120 - 246 U/L [facility] Work Phone: MRI ABDOMEN WO CONTRASTon Patient Name: ANDREW SIFUENTES Magnetic Resonance Imaging ACCESSION EXAM DATE/TIME PROCEDURE ORDERING PROVIDER [id number] 10/23/2021 11:08 EDT MRI Abdomen w/o Contrast [facility] CPT code 45468 Reason For Exam (MRI Abdomen w/o Contrast) [...] Imaging ACCESSION EXAM DATE/TIME PROCEDURE ORDERING PROVIDER [id number] 10/23/2021 11:08 EDT MRI Abdomen w/o Contrast [facility] CPT code 29886 Reason For Exam (MRI Abdomen w/o Contrast) [...] Transcribed Date and Time: 10/23/2021 4:36 [facility] [facility] Work Phone: MRI ABDOMEN WO CONTRASTOrder ed By: Unknown Result on 10-23-2021 [facility] MRI Abdomen w/o Contraston 0 10-23-2021 MRI Abdomen w/o Contrast Patient Name: ANDREW SIFUENTES Magnetic Resonance Imaging ACCESSION EXAM DATE/TIME PROCEDURE ORDERING PROVIDER [id number] 10/23/2021 11:08 EDT MRI Abdomen w/o Contrast WING SRIVASTAVA CPT code 41401 Reason For Exam (MRI Abdomen w/o Contrast) [...] Transcribed Date and Time: 10/23/2021 4:36 Normal [facility] Magnesiumon 10-23-2021 Magnesium [Mass/Vol] 2.1 mg/dL Normal 1.6-2.3 [facility] Comment on above: Performed By: #### C A19O, LUPUS #### The performing lab is in the report. #### NSEO #### [facility] #### HEMDF, LDH3, BMP3, MG3, PT, CEA2 #### [facility] [address] [place] [address] #### B2GPM, B2GPA, B2GPG #### [facility] [address] [place] [address] Magnesium [Mass/Vol] 2.1 mg/dL 1.6 - 2 .3 mg/dL [facility] Work Phone: No Panel Informationon 10-23 Test Performed by [facility], [address] [place], [place] [id number] [place] [address] LAB [facility] Work Phone: Prothrombin Timeon 2 INR 1.1 Normal 0.9-1.1 [facility] Comment on above: Result Comment: Harry [...] HEMDF, LDH3, BMP3, MG3, PT, CEA2 #### [address] [place] [address] #### B2GPM, B2GPA, B2GPG #### [address] [address] PT Coag (PPP) [Time] 12.2 s High 9.0-12.0 [facility] Comment on above: Result Comment: . Performed By: #### C A19O, LUPUS #### The performing lab is in the report. #### NSEO #### [facility] #### HEMDF, LDH3, BMP3, MG3, PT, CEA2 #### [address] [place] [address] #### B2GPM, B2GPA, B2GPG #### [address] [address] Protime-INRon 10-23-2021 INR Coag (Bld) [Relative time] 1.1 {INR} [facility] Work Phone: Comment on above: Recommended Anticoag [...] 12.2 s High 9.0 - 12.0 s [facility] Work Phone: Comment on above: . Test Performed by [facility], [address] [place] [address] [facility] LAB [facility] Work Phone: Basic Metabolic Panelon 10-05 Calcium [Mass/Vol] 8.9 mg/dL Normal 8.4-10.4 [facility] Comment on above: Performed By: #### P T #### [facility] [address] [place] [address] Glucose [Mass/Vol] 110 mg/dL High 70-100 [facility] Comment on above: Performed By: #### P T #### [facility] [address] [place] [address] Urea nitrogen [Mass/Vol] 14 mg/dL Normal 7-17 [facility] Comment on above: Performed By: #### P T #### [facility] [address] [place] [address] Anion gap [Moles/Vol] 7 mmol/L Normal 3-13 [facility] Comment on above: Performed By: #### P T #### [facility] [address] [place] [address] CO2 [Moles/Vol] 26 mmol/L Normal 22-30 [facility] Comment on above: Performed By: #### P T #### [facility] [address] [place] [address] Creatinine [Mass/Vol] 0.71 mg/dL Normal 0.52-1.25 [facility] Comment on above: Performed By: #### P T #### [facility] [address] [place] [address] eGFR OTHER > 90.0 Normal >60 [facility] Comment on above: Result Comment: KDIG [...] secretion. Performed By: #### P T #### [facility] [address] [place] [address] GFR/1.73 sq M.predicted among blacks MDRD (S/P/Bld) [Vol rate/Area] mL/min/{1.73_m2} Normal >60 [facility] Comment on above: Performed By: #### P T #### [facility] [address] [place] [address] Potassium [Moles/Vol] 3.8 mmol/L Normal 3.5-5.1 [facility] Comment on above: Performed By: #### P T #### [facility] [address] [place] [address] Chloride [Moles/Vol] 106 mmol/L Normal 98-107 [facility] Comment on above: Performed By: #### P T #### [facility] [address] [place] [address] Sodium [Moles/Vol] 139 mmol/L Normal 135-145 [facility] Comment on above: Performed By: #### P T #### [facility] [address] [place] [address] Anion gap [Moles/Vol] 7 mmol/L 3 - 13 mmol/L [facility] Calcium [Mass/Vol] 8.9 mg/dL 8.4 - 10. 4 mg/dL [facility] Chloride [Moles/Vol] 106 mmol/L 98 - 10 7 mmol/L [facility] CO2 [Moles/Vol] 26 mmol/L 22 - 30 mmol/L [facility] Creatinine [Mass/Vol] 0.71 mg/dL 0.52 - 1.25 mg/dL [facility] EGFR IF NonAfrican Macanese >90.0 >60 mL/min [facility] Comment on above: KDIGO guidelines [...] by [facility], [address] [place], [place] [id number] [place] [address] [facility] [address] Abdomen Pelvis Wo Contras ton 10-22-2021 Patient Name: ANDREW SIFUENTES Computed Tomography ACCESSION EXAM DATE/TIME PROCEDURE ORDERING PROVIDER [id number] 10/22/2021 13:[address] Abdomen/Pelvis (No SRIVASTAVA, WING PO, No IV) CPT code 78759 Reason For Exam (CT Abdomen/Pelvis (No PO, [...] HARLAN Transcribed Date and Time: 10/22/2021 2:37 [facility] RAD Humphrey Melton MD - 10/22/2021 Patient Name: ANDREW SIFUENTES Computed Tomography ACCESSION EXAM DATE/TIME PROCEDURE ORDERING PROVIDER [id number] 10/22/2021 13:[address] Abdomen/Pelvis (No SRIVASTAVA, WING PO, No IV) CPT code 47204 Reason For Exam (CT Abdomen/Pelvis (No PO, [...] Tomography ACCESSION EXAM DATE/TIME PROCEDURE ORDERING PROVIDER [id number] 10/22/2021 13:[address] Abdomen/Pelvis (No SRIVASTAVA, WING PO, No IV) CPT code 03457 Reason For Exam (CT Abdomen/Pelvis (No PO, [...] Transcribed Date and Time: 10/22/2021 2:37 Normal [facility] Hemogram w/ Autodiffon 10-22 Abs Baso Cnt 0.1 10*3/uL Normal 0.0-0.2 [facility] Comment on above: Performed By: #### P T #### [facility] [address] [place] [address] Abs Neutrophile Cnt 6.0 10*3/uL Normal 1.8-7.0 [facility] Comment on above: Performed By: #### P T #### [facility] [address] [place] [address] Basophils/100 WBC (Bld) 1.0 % Normal 0.0-2.0 [facility] Comment on above: Performed By: #### P T #### [facility] [address] [place] [address] Eosinophils (Bld) [#/Vol] 0.3 10*3/uL Normal 0.0-0.5 [facility] Comment on above: Performed By: #### P T #### [facility] [address] [place] [address] Eosinophils/100 WBC (Bld) 3.0 % Normal 1.0-6.0 [facility] Comment on above: Performed By: #### P T #### [facility] [address] [place] [address] Erythrocyte distribution width (RBC) [Ratio] 17.1 % High 11.5-14.5 [facility] Comment on above: Performed By: #### P T #### [facility] [address] [place] [address] Granulocytes/100 WBC (Bld) 64.1 % Normal 40.0-80.0 [facility] Comment on above: Performed By: #### P T #### [facility] [address] [place] [address] Hematocrit (Bld) [Volume fraction] 33.4 % Low 40.0-52.0 [facility] Comment on above: Performed By: #### P T #### [facility] [address] [place] [address] Hemoglobin (Bld) [Mass/Vol] 10.9 g/dL Low 13.0-18.0 [facility] Comment on above: Performed By: #### P T #### [facility] [address] [place] [address] Lymphocytes (Bld) [#/Vol] 2.5 10*3/uL Normal 1.0-4.3 [facility] Comment on above: Performed By: #### P T #### [facility] [address] [place] [address] Lymphocytes/100 WBC (Bld) 26.3 % Normal 20.0-40.0 [facility] Comment on above: Performed By: #### P T #### [facility] [address] [place] [address] MCH (RBC) [Entitic mass] 28.2 pg Normal 26.0-34.0 [facility] Comment on above: Performed By: #### P T #### [place] [address] [place] [address] MCHC 32.7 % Normal 32.0-36.0 [facility] Comment on above: Performed By: #### P T #### [facility] [address] [place] [address] MCV (RBC) [Entitic vol] 86.3 fL Normal 80.0-98.0 [facility] Comment on above: Performed By: #### P T #### [place] [address] [place] [address] Monocytes (Bld) [#/Vol] 0.5 10*3/uL Normal 0.0-0.8 [facility] Comment on above: Performed By: #### P T #### [facility] [address] [place] [address] Monocytes/100 WBC (Bld) 5.6 % Normal 2.0-10.0 [facility] Comment on above: Performed By: #### P T #### [facility] [address] [place] [address] Platelet mean volume (Bld) [Entitic vol] 7.6 fL Normal 7.4-12.4 [facility] Comment on above: Result Comment: MPV is a calculated measurement using platelet volume ratio. Performed By: #### P T #### [place] [address] [place] [address] Platelets (Bld) [#/Vol] 369 10*3/uL Normal 140-440 [facility] Comment on above: Performed By: #### P T #### [facility] [address] [place] [address] RBC (Bld) [#/Vol] 3.87 10*6/uL Low 4.40-5.90 [facility] Comment on above: Performed By: #### P T #### [facility] [address] [place] [address] WBC (Bld) [#/Vol] 9.4 10*3/uL Normal 3.6-10.7 [facility] Comment on above: Performed By: #### P T #### [facility] [address] [place] [address] Magnesiumon 10-22-2021 Magnesium [Mass/Vol] 2.0 mg/dL Normal 1.6-2.3 [facility] Comment on above: Performed By: #### P T #### [facility] [address] [place] [address] Magnesium [Mass/Vol] 2.0 mg/dL 1.6 - 2 .3 mg/dL [facility] No Panel Informationon 10-22 Radiology Study observation (narrative) [facility] Work Phone: Test Performed by [facility], [address] [place], [place] [address] [facility] LAB [facility] Prothrombin Timeon 2 INR 1.1 Normal 0.9-1.1 [facility] Comment on above: Result Comment: Harry [...] HEMDF, LDH3, BMP3, MG3, PT, CEA2 #### [facility] [address] [place] [address] #### B2GPM, B2GPA, B2GPG #### [facility] [address] [place] [address] PT Coag (PPP) [Time] 11.8 s Normal 9.0-12.0 [facility] Comment on above: Result Comment: . Performed By: #### C A19O, LUPUS #### The performing lab is in the report. #### NSEO #### [facility] #### HEMDF, LDH3, BMP3, MG3, PT, CEA2 #### [facility] [address] [place] [address] #### B2GPM, B2GPA, B2GPG #### [address] [address] Protime-INRon 10-22-2021 INR Coag (Bld) [Relative time] 1.1 {INR} [facility] Work Phone: Comment on above: [...] [Time] 11.8 s 9.0 - 12.0 s [facility] Work Phone: Comment on above: . Test Performed by [facility], [address], [place], [place] [address] [facility] LAB [facility] Work Phone: VL Ankle Art Brachial Indice s Extremity Bilateralon 10-22-2021 [facility] Ankle Brachial Index Report Patient RADHA Sifuentes: 1950 Study 10/21/2021 Name: Andrew Gonzalez (71yrs) Date: Age: 71 Account: [id number] Gender: M Loc: 444W BP: Ordering Physician: hSruthi Malik [employer]: Rody Cross RDMS, RVT Interpreting Physician: Carina Call Location: [facility] Indications: Foot wounds. Originally ordered as a full PVR. Ordering [employer] had to modify the order to ABIs [...] supine position. Images were obtained using a EDUSs vascular ultrasound machine. Arterial pressure indices: + [...] electronically signed by Carina Call 10/22/2021 13:21 [facility] CARD[facility]OLOG[facility] Carina Call MD - 10/22/2021 [facility] Ankle Brachial Index Report Patient GurpreetRADHA: 1950 Study 10/21/2021 Name: Andrew R (71yrs) Date: Age: 71 Account: [id number] Gender: M Loc: 444W BP: Ordering Physician: Shruthi Malik [employer]: Rody Cross RDMS RVT Interpreting Physician: Carina Call Location: [facility] Indications: Foot wounds. Originally ordered as a full PVR. Ordering [employer] had to modify the order to ABIs [...] supine position. Images were obtained using a EDUSs vascular ultrasound machine. Arterial pressure indices: + [...] electronically signed by Carina Call 10/22/2021 13:21 [facility] Work Phone: [facility] Work Phone: Basic Metabolic Panelon 10-05 Calcium [Mass/Vol] 9.1 mg/dL Normal 8.4-10.4 [facility] Comment on above: Performed By: #### C OVAG #### [facility] [address] [place] [address] Anion gap [Moles/Vol] 6 mmol/L Normal 3-13 [facility] Comment on above: Performed By: #### C OVAG #### [facility] [address] [place] [address] CO2 [Moles/Vol] 29 mmol/L Normal 22-30 [facility] Comment on above: Performed By: #### C OVAG #### [facility] [address] [place] [address] Creatinine [Mass/Vol] 0.90 mg/dL Normal 0.52-1.25 [facility] Comment on above: Performed By: #### C OVAG #### [facility] [address] [place] [address] GFR/1.73 sq M.predicted among blacks MDRD (S/P/Bld) [Vol rate/Area] mL/min/{1.73_m2} Normal >60 [facility] Comment on above: Performed By: #### C OVAG #### [facility] [address] [place] [address] GFR/1.73 sq M.predicted among non-blacks MDRD (S/P/Bld) [Vol rate/Area] 86.6 mL/min/{1.73_m2} Normal >60 [facility] Comment on above: Result Comment: KDIG [...] secretion. Performed By: #### C OVAG #### [facility] [address] [place] [address] Glucose [Mass/Vol] 106 mg/dL High 70-100 [facility] Comment on above: Performed By: #### C OVAG #### [facility] [address] [place] [address] Urea nitrogen [Mass/Vol] 18 mg/dL High 7-17 [facility] Comment on above: Performed By: #### C OVAG #### [facility] [address] [place] [address] Chloride [Moles/Vol] 105 mmol/L Normal 98-107 [facility] Comment on above: Performed By: #### C OVAG #### [facility] [address] [place] [address] Potassium [Moles/Vol] 4.3 mmol/L Normal 3.5-5.1 [facility] Comment on above: Performed By: #### C OVAG #### [facility] [address] [place] [address] Sodium [Moles/Vol] 139 mmol/L Normal 135-145 [facility] Comment on above: Performed By: #### C OVAG #### [facility] [address] [place] [address] Anion gap [Moles/Vol] 6 mmol/L 3 - 13 mmol/L [facility] Calcium [Mass/Vol] 9.1 mg/dL 8.4 - 10. 4 mg/dL [facility] Chloride [Moles/Vol] 105 mmol/L 98 - 10 7 mmol/L [facility] CO2 [Moles/Vol] 29 mmol/L 22 - 30 mmol/L [facility] Creatinine [Mass/Vol] 0.9 mg/dL 0.52 - 1.25 mg/dL [facility] EGFR IF NonAfrican Macanese 86.6 mL/min >60 [facility] Comment on above: KDIGO guidelines [...] by [facility], [address] LAB [facility] C-Reactive Proteinon 022 CRP [Mass/Vol] 33.5 mg/L High 0.0-9.9 [facility] Comment on above: Result Comment: . Performed By: #### P T #### [facility] [address] [place] [address] CRP [Mass/Vol] 33.5 mg/L High 0.0 - 9.9 mg/L [facility] Comment on above: . Interpretation and review of laboratory results Abnormal [facility] Test Performed by [facility], [address] LAB [facility] CR Calcaneus 2+ Views Lefton 10-21-2021 CR Calcaneus 2+ Views Left [facility]: [id number] Radiology ACCESSION EXAM DATE/TIME PROCEDURE ORDERING PROVIDER [id number] 10/21/2021 15:30 EDT CR Calcaneus 2+ Views [id number] -SHRUTHI MALIK Left CPT code 78312 Reason For Exam (CR Calcaneus 2+ Views [...] Report Dictated on Final Dictating Physician: MD WNOG ANTHONY J Signed Date and Time: 10/21/2021 4:31 pm Signed by: MD WONG ANTHONY J Transcribed Date and Time: 10/21/2021 4:33 Normal [facility] CR Chest 1 View Frontalon CR Chest 1 View Frontal Patient Name: ANDREW SIFUENTES Diagnostic Radiology ACCESSION EXAM DATE/TIME PROCEDURE ORDERING PROVIDER [id number] 10/21/2021 08:16 EDT CR Chest 1 View Frontal [id number] [facility] BOGGS CPT code 44668 Reason For Exam (CR Chest 1 View [...] Transcribed Date and Time: 10/21/2021 8:33 Normal [facility] D-Dimer, Innovanceon 022 D-Dimer, Innovance 1.51 mg/L High <0.19-0.50 [facility] Comment on above: Result Comment: Inno saba D-Dimer values of <0.50 mg/L FEU can be used in combination with a pre-test probability model (e.g. Well's) to exclude pulmonary embolism (PE) disease, as well as an aid in the diagnosis of deep vein thrombosis (DVT). Performed By: #### P T #### [facility] [address] [place] [address] D-Dimer, Quantitativeon 10-05 D-Dimer, Quant 1.51 mg/L High <0.19 - 0.50 [facility] Comment on above: Innovance D-Dimer va lues of <0.50 mg/L FEU can be used in combination with a pre-test probability model (e.g. Well's) to exclude pulmonary embolism (PE) disease, as well as an aid in the diagnosis of deep vein thrombosis (DVT). Interpretation and review of laboratory results Abnormal [facility] Test Performed by [facility], [address], [place], [place] [address] [facility] LAB [facility] ED Provider Noteon ED Provider Note [facility] ED EMERGENCY DEPARTMENT ENCOUNTER Pt Name: [...] (HCC) ? Kidney stone ? Neuropathy ? [employer]PER[employer] (ventriculoperitoneal) shunt status SURGICAL HISTORY Past [...] and Family: Not on file ? Attends [employer]: Not on file ? Active Member [...] LUNGS: Respirations (more content not included)... Normal [facility] [employer] [facility] Hemogramon 10-21-2021 Erythrocyte distribution width (RBC) [Ratio] 17.3 % High 11.5-14.5 [facility] Comment on above: Performed By: #### C OVAG #### [facility] [address] [place] [address] Hematocrit (Bld) [Volume fraction] 33.6 % Low 40.0-52.0 [facility] Comment on above: Performed By: #### C OVAG #### [facility] [address] [place] [address] Hemoglobin (Bld) [Mass/Vol] 10.9 g/dL Low 13.0-18.0 [facility] Comment on above: Performed By: #### C OVAG #### [facility] [address] [place] [address] MCH (RBC) [Entitic mass] 27.8 pg Normal 26.0-34.0 [facility] Comment on above: Performed By: #### C OVAG #### [facility] [address] [place] [address] MCHC 32.5 % Normal 32.0-36.0 [facility] Comment on above: Performed By: #### C OVAG #### [facility] [address] [place] [address] MCV (RBC) [Entitic vol] 85.6 fL Normal 80.0-98.0 [facility] Comment on above: Performed By: #### C OVAG #### [facility] [address] [place] [address] Platelet mean volume (Bld) [Entitic vol] 7.7 fL Normal 7.4-12.4 [facility] Comment on above: Result Comment: MPV is a calculated measurement using platelet volume ratio. Performed By: #### C OVAG #### [facility] [address] [place] [address] Platelets (Bld) [#/Vol] 404 10*3/uL Normal 140-440 [facility] Comment on above: Performed By: #### C OVAG #### [facility] [address] [place] [address] RBC (Bld) [#/Vol] 3.93 10*6/uL Low 4.40-5.90 [facility] Comment on above: Performed By: #### C OVAG #### [facility] [address] [place] [address] WBC (Bld) [#/Vol] 11.6 10*3/uL High 3.6-10.7 [facility] Comment on above: Performed By: #### C OVAG #### [facility] [address] [place] [address] Hemogram (CBC)on 10-21-2021 Hematocrit (Bld) [Volume fraction] 33.6 % Low 40.0 - 52.0 % [facility] Hemoglobin (Bld) [Mass/Vol] 10.9 g/dL Low 13.0 - 18.0 g/dL [facility] Interpretation and review of laboratory [...] by [facility], [address], [place], [place] [address] [facility] LAB [facility] NM LUNG VENT/PERFUSION (VQ)o n 10-21-2021 Patient Name: ANDREW SIFUENTES Nuclear Medicine ACCESSION EXAM DATE/TIME PROCEDURE ORDERING PROVIDER [id number] 10/21/2021 07:55 EDT NM Pulmonary Perfusion [id number] MAY BOGGS w/ Vent Aerosol CPT code 50972 A9567 Reason For Exam (NM Pulmonary Perfusion [...] Medicine ACCESSION EXAM DATE/TIME PROCEDURE ORDERING PROVIDER [id number] 10/21/2021 07:55 EDT NM Pulmonary Perfusion [id number] MAY BOGGS w/ Vent Aerosol CPT code 94046 A9567 Reason For Exam (NM Pulmonary Perfusion [...] Transcribed Date and Time: 10/21/2021 8:49 [facility] Work Phone: NM LUNG VENT/PERFUSION (VQ)O rdered By: Henry Harvey on 10-21-2021 [facility] Work Phone: NM Pulmonary Perfusion w/ Ve nt Aerosol or Gason 10-21-2021 NM Pulmonary Perfusion w/ Vent Aerosol or Gas Patient Name: ANDREW SIFUENTES Nuclear Medicine ACCESSION EXAM DATE/TIME PROCEDURE ORDERING PROVIDER [id number] 10/21/2021 07:55 EDT NM Pulmonary Perfusion [id number] -MAY CASH w/ Vent Aerosol CPT code 42363 A9567 Reason For Exam (NM Pulmonary Perfusion [...] Transcribed Date and Time: 10/21/2021 8:49 Normal [facility] No Panel Informationon 10-21 Radiology Study observation (narrative) [facility] Work Phone: Prothrombin Timeon 2 INR 1.1 Normal 0.9-1.1 [facility] Comment on above: Result Comment: Harry [...] Infarction Performed By: #### C OVAG #### [facility] [address] [place] [address] PT Coag (PPP) [Time] 11.5 s Normal 9.0-12.0 [facility] Comment on above: Result Comment: . Performed By: #### C OVAG #### [facility] [address] [place] [address] Protime-INRon 10-21-2021 INR Coag (Bld) [Relative time] 1.1 {INR} [facility] Comment on above: Recommended Anticoag [...] [Time] 11.5 s 9.0 - 12.0 s [facility] Comment on above: . Test Performed by [facility], [address] LAB [facility] Retic Count(%)on 10-21-2021 Retic Count(%) 1.6 Normal [facility] Comment on above: Result Comment: Newb orn < 5% Adults 0.5 - 1.5% Performed By: #### P T #### [facility] [address] [place] [address] Reticulocyteson 10-21-[address] Pct 1.6 [facility] Comment on above: < 5% Adults 0.5 - 1.5% Test Performed by [facility], [address] [place], [place] [id number] [place] [address] LAB [facility] Sed Rateon 10-21-2021 Sed Rate 63 mm/h High 0-10 [facility] Comment on above: Performed By: #### P T #### [facility] [address] [place] [address] Sedimentation Rateon 022 Interpretation and review of laboratory results Abnormal [facility] Sed Rate 63 mm/h High 0 - 10 mm/h [facility] Test Performed by [facility], [address], [place], [place] [address] [facility] LAB [facility] VL CAMRELLA Upr/L Extremity Art 1 -2 [place] 10-21-2021 VL CARMELLA Upr/L Extremity Art 1-2 Levels Patient Name: ANDREW SIFUENTES Ultrasound ACCESSION EXAM DATE/TIME PROCEDURE ORDERING PROVIDER [id number] 10/21/2021 16:12 EDT VL Upr/L Extremity Art [id number] -SHRUTHI MALIK 1-2 Levels CPT code 39943 Reason For Exam (VL Upr/L Extremity Art 1-2 Levels) both lower legs CARMELLA for both feet wounds. Report [facility] Ankle Brachial Index Report Patient RADHA Sifuentes: 1950 Study 10/21/2021 Name: Andrew Gonzalez (71yrs) Date: Age: 71 Account: [id number] Gender: M Loc: 444W BP: Ordering Physician: Shruthi Malik [employer]: Rody Cross RDMS, RVT Interpreting Physician: Carina Call Location: [facility] Indications: Foot wounds. Originally ordered as a full PVR. Ordering [employer] had to modify the order to ABIs [...] supine position. Images were obtained using a EDUSs vascular ultrasound machine. Arterial pressure indices: + [...] CARINA HENNESSY Cardiovascular ACCESSION EXAM DATE/TIME PROCEDURE [id number] 10/21/2021 16:12 EDT VL Upr/L Extremity Art 1-2 Levels CPT code 30259 Reason For Exam (VL Upr/L Extremity Art 1-2 Levels) both lower legs CARMELLA for both feet wounds. Report [facility] Ankle Brachial Index Report Patient DO GurpreetB: 1950 Study 10/21/2021 Name: Andrew Gonzalez (71yr) Date: Age: 71 Account: [id number] Cardiovascular Report Gender: M Loc: 444W BP: Ordering Physician: Shruthi Malik [employer]: Rody Cross RDMS, RVT Interpreting Physician: Carina Call Location: [facility] Indications: Foot wounds. Originally ordered as a full PVR. Ordering [employer] had to modify the order to ABIs [...] in th (more content not included)... Normal [facility] VL LOWER EXTREMITY BILATERAL VENOUS DUPLEXon 10-21-2021 [facility] Lower Extremity Venous Duplex Report Patient DO GurpreetB: 1950 Study 10/21/2021 Name: Andrew Gonzalez (71yrs) Date: Age: 71 Account: [id number] Gender: M Loc: 444 BP: Ordering Physician: May Cash [employer]: Rody Cross RDMS, RVT Interpreting Physician: Carina Call Location: [facility] Indications: Bilateral lower leg edema. CRITICAL [...] supine position. Images were obtained using a EDUSs vascular ultrasound machine. Venous flow and imaging: [...] +-------- --------+ + (more content not included)... [facility] CARDIOLOGY Carina Call MD - 10/21/2021 [facility] Lower Extremity Venous Duplex Report Patient DO GurpreetB: 1950 Study 10/21/2021 Name: Andrew Gonzalez (71yrs) Date: Age: 71 Account: [id number] Gender: M Loc: 444 BP: Ordering Physician: May Cash [employer]: Rody Cross RDMS, RVT Interpreting Physician: Carina Call Location: [facility] Indications: Bilateral lower leg edema. CRITICAL [...] supine position. Images were obtained using a EDUSs vascular ultrasound machine. Venous flow and imaging: [...] + + +----- (more content not included)... [employer] Work Phone: VL LOWER EXTREMITY BILATERAL VENOUS DUPLEXOrdered By: Carina Call on 10-21-2021 [employer] Work Phone: VL Venous Duplex US Lower Ex t Bilateralon 10-21-2021 VL Venous Duplex US Lower Ext Bilateral Patient Name: ANDREW SIFUENTES Ultrasound ACCESSION EXAM DATE/TIME PROCEDURE ORDERING PROVIDER [id number] 10/21/2021 09:53 EDT VL Venous Duplex US [id number] -MAY CASH Lower Ext Bilateral CPT code 95395 Reason For Exam (VL Venous Duplex US Lower Ext Bilateral) bilateral sqwelling redness Report [facility] Lower Extremity Venous Duplex Report Luís Sifuentes DOB: 1950 Study 10/21/2021 Name: Andrew Gonzalez (71yr) Date: Age: 71 Account: [id number] Gender: M Loc: 444 BP: Ordering Physician: May Cash [employer]: Rody Cross RDMS, T Interpreting Physician: Carina Call Location: [facility] Indications: Bilateral lower leg edema. CRITICAL [...] supine position. Images were obtained using a EDUSs vascular ultrasound machine. Venous flow and imaging: [...] + + (more content not included)... Normal [facility] XR CALCANEUS LEFT (MIN 2 VIE WS)on 10-21-2021 [facility]: [id number]iology ACCESSION EXAM DATE/TIME PROCEDURE ORDERING PROVIDER [id number] 10/21/2021 15:30 EDT CR Calcaneus 2+ Views [id number] -SHRUTHI MALIK Left CPT code 57368 Reason For Exam (CR Calcaneus 2+ Views [...] MD - 10/21/2021 Patient Name: [id number] Radiology ACCESSION EXAM DATE/TIME PROCEDURE ORDERING PROVIDER [id number] 10/21/2021 15:30 EDT CR Calcaneus 2+ Views [id number] -SHRUTHI MALIK Left CPT code 62175 Reason For Exam (CR Calcaneus 2+ Views [...] Transcribed Date and Time: 10/21/2021 4:33 [facility] Work Phone: XR CALCANEUS LEFT (MIN 2 VIE WS)Ordered By: Alan Wong on 10-21-2021 [facility] Work Phone: XR Chest 1 VWon 10-21-2021 Patient Name: ANDREW SIFUENTES Diagnostic Radiology ACCESSION EXAM DATE/TIME PROCEDURE ORDERING PROVIDER [id number] 10/21/2021 08:16 EDT CR Chest 1 View Frontal [id number] FOSTER CPT code 50791 Reason For Exam (CR Chest 1 View [...] Time: 10/21/2021 8:33 [facility] RAD Venus Loyd MD - 10/21/2021 Patient Name: ANDREW SIFUENTES Diagnostic Radiology ACCESSION EXAM DATE/TIME PROCEDURE ORDERING PROVIDER [id number] 10/21/2021 08:16 EDT CR Chest 1 View Frontal [id number] CONTI CPT code 64071 Reason For Exam (CR Chest 1 View [...] Date and Time: 10/21/2021 8:33 [facility] Work Phone: XR Chest 1 VWOrdered By: Natalie Loyd on 10-21-2021 [facility] Work Phone: Basophil percentageon 2021 Chloride [Moles/Vol] 108 mmol/L 98-107 [facility] Work Phone: Glucose [Mass/Vol] 93 mg/dL 74-106 [facility] Work Phone: [phone] Potassium [Moles/Vol] 3.9 mmol/L 3.5-5.1 [facility] Work Phone: Sodium [Moles/Vol] 140 mmol/L 136-145 [facility] Work Phone: WBC (Bld) [#/Vol] 8.7 10*3/uL 4.4-11.0 [facility] Work Phone: Blood erythrocytes count (nu mber/volume)on 10-20-2021 RBC (Bld) [#/Vol] 3.63 10*6/uL 4.6-6.2 [facility] Work Phone: Blood hemoglobin measurement (mass/volume)on 10-20-2021 Hemoglobin (Bld) [Mass/Vol] 10.1 g/dL 13.0-16.5 [facility] Work Phone: Blood platelet mean volumeon 10-20-2021 Platelet mean volume (Bld) [Entitic vol] 9.8 fL 6.2-12.0 [facility] Work Phone: Determination of erythrocyte mean corpuscular volume (MCV)on 10-20-2021 MCV (RBC) [Entitic vol] 90.1 fL 80-94 [facility] Work Phone: Hematocrit Auto (Bld) [Volum e fraction]on 10-20-2021 Hematocrit (Bld) [Volume fraction] 32.7 % 40-54 [facility] Work Phone: Laboratory - Chemistry and C hemistry - challengeon 10-20-2021 CO2 [Moles/Vol] 25.0 mmol/L 21.0-32.0 [facility] Work Phone: Urea nitrogen/Creatinine [Mass ratio] 17.4 mg/mg 10-20 [facility] Work Phone: Laboratory - Hematology and Cell countson 10-20-2021 Erythrocyte distribution width (RBC) [Entitic vol] 52.1 fL 35.1-43.9 [facility] Work Phone: Erythrocyte distribution width (RBC) [Ratio] 15.6 % 11.6-14.6 [facility] Work Phone: MCH (RBC) [Entitic mass] 27.8 pg 27.0-32.0 [facility] Work Phone: MCHC Auto (RBC) [Mass/Vol]on 10-20-2021 MCHC (RBC) [Mass/Vol] 30.9 g/dL 32-36 [facility] Work Phone: No Panel Informationon 10-20 Estimated GFR (MDRD) Amer 133 mL/min >60 [facility] Work Phone: Comment on above: GFR Calc Estimated GFR (MDRD) Non-Af Amer 110 mL/min >60 [facility] Work Phone: Comment on above: Non- GFR Calc Platelets bldon 10-20-2021 Platelets (Bld) [#/Vol] 404 10*3/uL 150-450 [facility] Work Phone: Serum or plasma calcium oral urement (mass/volume)on 10-20-2021 Calcium [Mass/Vol] 9.1 mg/dL 8.5-10.1 [facility] Work Phone: Serum or plasma creatinine m easurement (mass/volume)on 10-20-2021 Creatinine [Mass/Vol] 0.75 mg/dL 0.70-1.30 [facility] Work Phone: Comment on above: The validity of the calculated GFR & GFRAA in patients over 70 years has not been determined. Clinical correlation is essential. Serum or plasma urea nitroge n measurement (mass/volume)on 10-20-2021 Urea nitrogen [Mass/Vol] 13 mg/dL 7-18 [facility] Work Phone: Thin prep Papanicolaou smear with manual screeningon 10-20-2021 Thin prep Papanicolaou smear with manual screening 7 5-15 [facility] Work Phone: CNPNon 10-17-2021 CNPN Normal [facility] Absolute lymphocyte counton 09-19-2021 Lymphocytes Auto (Unsp spec) [#/Vol] 1.74 10*3/uL 0.83-4.51 [facility] Work Phone: Basophil percentageon 2021 Basophils/100 WBC (Bld) 0.6 % 0-1 [facility] Work Phone: Bilirubin [Mass/Vol] 0.30 mg/dL 0.20-1.00 [facility] Work Phone: Comment on above: For patients on eltr ombopag therapy, use of Dimension Vickery TBIL is not recommended. Chloride [Moles/Vol] 105 mmol/L 98-107 [facility] Work Phone: Eosinophils/100 WBC (Bld) 3.5 % 0-5 [facility] Work Phone: Glucose [Mass/Vol] 91 mg/dL 74-106 [facility] Work Phone: Neutrophils (Bld) [#/Vol] 4.2 10*3/uL 2.0-7.7 [facility] Work Phone: Neutrophils/100 WBC (Bld) 62.6 % 47-70 [facility] Work Phone: Potassium [Moles/Vol] 3.8 mmol/L 3.5-5.1 [place] [facility] Work Phone: Protein [Mass/Vol] 6.3 g/dL 6.4-8.2 [place] [facility] Work Phone: Sodium [Moles/Vol] 139 mmol/L 136-145 [place] [facility] Work Phone: WBC (Bld) [#/Vol] 6.6 10*3/uL 4.4-11.0 [place] [facility] Work Phone: Blood erythrocytes count (nu mber/volume)on 09-19-2021 RBC (Bld) [#/Vol] 3.47 10*6/uL 4.6-6.2 [place] [facility] Work Phone: Blood hemoglobin measurement (mass/volume)on 09-19-2021 Hemoglobin (Bld) [Mass/Vol] 10.2 g/dL 13.0-16.5 [facility] Work Phone: Blood lymphocytes/100 leukoc yteson 09-19-2021 Lymphocytes/100 WBC (Bld) 26.2 % 19-41 [facility] Work Phone: Blood monocytes/100 leukocyt eson 09-19-2021 Monocytes/100 WBC (Bld) 6.5 % 0-10 [facility] Work Phone: Blood platelet mean volumeon 09-19-2021 Platelet mean volume (Bld) [Entitic vol] 9.6 fL 6.2-12.0 [facility] Work Phone: Determination of erythrocyte mean corpuscular volume (MCV)on 09-19-2021 MCV (RBC) [Entitic vol] 94.8 fL 80-94 [facility] Work Phone: Hematocrit Auto (Bld) [Volum e fraction]on 09-19-2021 Hematocrit (Bld) [Volume fraction] 32.9 % 40-54 [facility] Work Phone: Laboratory - Chemistry and C hemistry - challengeon 09-19-2021 ALP [Catalytic activity/Vol] 109 U/L 45-117 [facility] Work Phone: ALT [Catalytic activity/Vol] 23 U/L 16-61 [facility] Work Phone: CO2 [Moles/Vol] 26.0 mmol/L 21.0-32.0 [facility] Work Phone: Globulin (S) [Mass/Vol] 3.5 g/dL 2.2-4.2 [facility] Work Phone: Urea nitrogen/Creatinine [Mass ratio] 15.3 mg/mg 10-20 [facility] Work Phone: Laboratory - Hematology and Cell countson 09-19-2021 Erythrocyte distribution width (RBC) [Entitic vol] 59.4 fL 35.1-43.9 [facility] Work Phone: Erythrocyte distribution width (RBC) [Ratio] 17.1 % 11.6-14.6 [facility] Work Phone: Immature granulocytes/100 WBC (Bld) 0.600 % 0.0-0.9 [facility] Work Phone: Comment on above: IG% - Immature Granu locytes (promyelocytes, myelocytes and metamyelocytes) > 1% indicates that a LEFT SHIFT is Present. MCH (RBC) [Entitic mass] 29.4 pg 27.0-32.0 [facility] Work Phone: Nucleated RBC/100 WBC (Bld) [Ratio] 0 % 0-5 [facility] Work Phone: MCHC Auto (RBC) [Mass/Vol]on 09-19-2021 MCHC (RBC) [Mass/Vol] 31.0 g/dL 32-36 [facility] Work Phone: No Panel Informationon 09-19 Estimated GFR (MDRD) Amer 175 mL/min >60 [facility] Work Phone: Comment on above: GFR Calc Estimated GFR (MDRD) Non-Af Amer 145 mL/min >60 [facility] Work Phone: Comment on above: Non- GFR Calc Platelets bldon 09-19-2021 Platelets (Bld) [#/Vol] 342 10*3/uL 150-450 [facility] Work Phone: Serum or plasma albumin oral urement (mass/volume)on 09-19-2021 Albumin [Mass/Vol] 2.8 g/dL 3.2-5.0 [facility] Work Phone: Serum or plasma albumin/glob ulin mass ratioon 09-19-2021 Albumin/Globulin [Mass ratio] 0.8 {ratio} 0.9-2.4 [facility] Work Phone: Serum or plasma calcium oral urement (mass/volume)on 09-19-2021 Calcium [Mass/Vol] 9.0 mg/dL 8.5-10.1 [facility] Work Phone: Serum or plasma creatinine m easurement (mass/volume)on 09-19-2021 Creatinine [Mass/Vol] 0.59 mg/dL 0.70-1.30 [facility] Work Phone: Comment on above: The validity of the calculated GFR & GFRAA in patients over 70 years has not been determined. Clinical correlation is essential. Serum or plasma urea nitroge n measurement (mass/volume)on 09-19-2021 Urea nitrogen [Mass/Vol] 9 mg/dL 7-18 [facility] Work Phone: Thin prep Papanicolaou smear with manual screeningon 09-19-2021 Thin prep Papanicolaou smear with manual screening 12 U/L 15-37 [facility] Work Phone: Thin prep Papanicolaou smear with manual screening 8 5-15 [facility] Work Phone: OPERATIVE NOon 08-22-2021 OPERATIVE NO Normal [facility] Basic metabolic 2000 panelon 08-19-2021 Anion gap [Moles/Vol] 10 mmol/L Normal 9-18 [facility] Comment on above: Order Comment: Speci men Type: BLOOD SPECIMENOrdering Facility: [facility] Address: [address] [place] [address] Performed By: #### 2 4321-2 ####[facility] LABORATORYCLIA [id number] [place] [address] [place] Calcium [Mass/Vol] 8.6 mg/dL Normal 8.5-10.2 [facility] Comment on above: Order Comment: Speci men Type: BLOOD SPECIMENOrdering Facility: [facility] Address: [address] [place] [address] Performed By: #### 2 4321-2 ####[facility] LABORATORYCLIA [id number] [address] [place] Chloride [Moles/Vol] 99 mmol/L Normal 97-105 [facility] Comment on above: Order Comment: Speci men Type: BLOOD SPECIMENOrdering Facility: [facility] Address: [address] [place] [address] Performed By: #### 2 4321-2 ####[facility] LABORATORYCLIA [id number] [address] [place] CO2 [Moles/Vol] 29 mmol/L Normal 22-30 [facility] Comment on above: Order Comment: Speci men Type: BLOOD SPECIMENOrdering Facility: [facility] Address: [address] [place] [address] Performed By: #### 2 4321-2 ####[facility] LABORATORYCLIA [id number] [place] [address] [place] Creatinine [Mass/Vol] 0.58 mg/dL Low 0.73-1.22 [facility] Comment on above: Order Comment: Speci men Type: BLOOD SPECIMENOrdering Facility: [facility] Address: [address] [place] [address] Performed By: #### 2 4321-2 ####[facility] LABORATORYCLIA [id number] [address] [place] ESTIMATED GLOMERULAR FILTRATION RATE 106 mL/min/1.73m??? Normal >=60 [facility] Comment on above: Order Comment: Shira feldman Type: BLOOD SPECIMENOrdering Facility: [facility] Address: [address] [place] [address] Result Comment: Luzmaria mated Glomerular Filtration Rate [...] actual GFR. Performed By: #### 2 4321-2 ####[facility] LABORATORYCLIA [id number] [place] [address] [place] Glucose [Mass/Vol] 101 mg/dL High 74-99 [facility] Comment on above: Order Comment: Shira feldman Type: BLOOD SPECIMENOrdering Facility: [facility] Address: [address] [place] [address] Result Comment: The [place] Diabetes Association (ADA) provides guidance for cutoff [...] Standards of Medical Care in Diabetes 2016, [place] [employer]. Diabetes Care. 2016.39(Suppl 1). Performed By: #### 2 4321-2 ####[facility] LABORATORYCLIA [id number] [place] [address] [place] Potassium [Moles/Vol] 3.5 mmol/L Low 3.7-5.1 [facility] Comment on above: Order Comment: Shira feldman Type: BLOOD SPECIMENOrdering Facility: [facility] Address: [address] [address] Performed By: #### 2 4321-2 ####[facility] LABORATORYCLIA [id number] [address] [place] Sodium [Moles/Vol] 138 mmol/L Normal 136-144 [facility] Comment on above: Order Comment: Speci men Type: BLOOD SPECIMENOrdering Facility: [facility] Address: [address] [place] [address] Performed By: #### 2 4321-2 ####[facility] LABORATORYCLIA [id number] [place] [address] [place] Urea nitrogen [Mass/Vol] 11 mg/dL Normal 9-24 [facility] Comment on above: Order Comment: Speci men Type: BLOOD SPECIMENOrdering Facility: [facility] Address: [address] [place] [address] Performed By: #### 2 4321-2 ####[facility] LABORATORYCLIA [id number] [address] [place] CASE MANAGEMon 08-19-2021 CASE MANAGEM Normal [facility] CBC W Auto Differential pane l (Bld)on 08-19-2021 Basophils (Bld) [#/Vol] 0.03 10*3/uL Normal <0.11 [facility] Comment on above: Order Comment: Speci men Type: BLOOD SPECIMENOrdering Facility: [facility] Address: [address] [place] [address] Performed By: #### 5 7021-8 ####[facility] LABORATORYCLIA [id number] [address] [place] Basophils/100 WBC (Bld) 0.4 % Normal [facility] Comment on above: Order Comment: Speci men Type: BLOOD SPECIMENOrdering Facility: [facility] Address: [address] [place] [address] Performed By: #### 5 7021-8 ####[facility]ORATORYCLIA [id number] [address] Differential cell count method Nom (Bld) Auto Normal [facility] Comment on above: Order Comment: Speci men Type: BLOOD SPECIMENOrdering Facility: [facility] Address: [address] [place] [address] Performed By: #### 5 7021-8 ####[facility] LABORATORYCLIA [id number] [address] [place] Eosinophils (Bld) [#/Vol] 0.24 10*3/uL Normal <0.46 [facility] Comment on above: Order Comment: Speci men Type: BLOOD SPECIMENOrdering Facility: [facility] Address: [address] [place] [address] Performed By: #### 5 7021-8 ####[facility] LABORATORYCLIA [id number] [address] Eosinophils/100 WBC (Bld) 3.1 % Normal [facility] Comment on above: Order Comment: Speci men Type: BLOOD SPECIMENOrdering Facility: [facility] Address: [address] [place] [address] Performed By: #### 5 7021-8 ####[facility] LABORATORYCLIA [id number] [address] [place] Erythrocyte distribution width (RBC) [Ratio] 17.5 % High 11.5-15.0 [facility] Comment on above: Order Comment: Speci men Type: BLOOD SPECIMENOrdering Facility: [facility] Address: [address] [place] [address] Performed By: #### 5 7021-8 ####[facility] LABORATORYCLIA [id number] [address] Hematocrit (Bld) [Volume fraction] 30.2 % Low 39.0-51.0 [facility] Comment on above: Order Comment: Speci men Type: BLOOD SPECIMENOrdering Facility: [facility] Address: [address] [place] [address] Performed By: #### 5 7021-8 ####[facility] LABORATORYCLIA [id number] [address] [place] Hemoglobin (Bld) [Mass/Vol] 9.6 g/dL Low 13.0-17.0 [facility] Comment on above: Order Comment: Speci men Type: BLOOD SPECIMENOrdering Facility: [facility] Address: [address] [place] [address] Performed By: #### 5 7021-8 ####[facility] LABORATORYCLIA [id number] [address] IMMATURE GRAN % 0.4 % Normal [facility] Comment on above: Order Comment: Speci men Type: BLOOD SPECIMENOrdering Facility: [facility] Address: [address] [place] [address] Performed By: #### 5 7021-8 ####[facility] LABORATORYCLIA [id number] [address] IMMATURE GRAN ABS 0.03 k/uL Normal <0.10 [facility] Comment on above: Order Comment: Speci men Type: BLOOD SPECIMENOrdering Facility: [facility] Address: [address] [place] [address] Performed By: #### 5 7021-8 ####[facility] LABORATORYCLIA [id number] [address] [place] Lymphocytes (Bld) [#/Vol] 1.71 10*3/uL Normal 1.00-4.00 [facility] Comment on above: Order Comment: Speci men Type: BLOOD SPECIMENOrdering Facility: [facility] Address: [address] [place] [address] Performed By: #### 5 7021-8 ####[facility] LABORATORYCLIA [id number] [address] Lymphocytes/100 WBC (Bld) 22.2 % Normal [facility] Comment on above: Order Comment: Speci men Type: BLOOD SPECIMENOrdering Facility: [facility] Address: [address] [place] [address] Performed By: #### 5 7021-8 ####[facility] LABORATORYCLIA [id number] [address] MCH (RBC) [Entitic mass] 29.4 pg Normal 26.0-34.0 [facility] Comment on above: Order Comment: Speci men Type: BLOOD SPECIMENOrdering Facility: [facility] Address: [address] [place] [address] Performed By: #### 5 7021-8 ####[facility] LABORATORYCLIA [id number] [address] MCHC (RBC) [Mass/Vol] 31.8 g/dL Normal 30.5-36.0 [facility] Comment on above: Order Comment: Speci men Type: BLOOD SPECIMENOrdering Facility: [facility] Address: [address] [place] [address] Performed By: #### 5 7021-8 ####[facility] LABORATORYCLIA [id number] [address] STATES OF [facility] MCV (RBC) [Entitic vol] 92.6 fL Normal 80.0-100.0 [facility] Comment on above: Order Comment: Speci men Type: BLOOD SPECIMENOrdering Facility: [facility] Address: [address] [place] [address] Performed By: #### 5 7021-8 ####[facility] LABORATORYCLIA [id number] [address] Monocytes (Bld) [#/Vol] 0.50 10*3/uL Normal <0.87 [facility] Comment on above: Order Comment: Speci men Type: BLOOD SPECIMENOrdering Facility: [facility] Address: [address] [place] [address] Performed By: #### 5 7021-8 ####[facility] LABORATORYCLIA [id number] [address] Monocytes/100 WBC (Bld) 6.5 % Normal [facility] Comment on above: Order Comment: Speci men Type: BLOOD SPECIMENOrdering Facility: [facility] Address: [address] [place] [address] Performed By: #### 5 7021-8 ####[facility]ORATORYCLIA [id number] [address] [place] Neutrophils (Bld) [#/Vol] 5.20 10*3/uL Normal 1.45-7.50 [facility] Comment on above: Order Comment: Speci men Type: BLOOD SPECIMENOrdering Facility: [facility] Address: [address] [place] [address] Performed By: #### 5 7021-8 ####[facility]ORATORYCLIA [id number] [address] [place] Neutrophils/100 WBC (Bld) 67.4 % Normal [facility] Comment on above: Order Comment: Speci men Type: BLOOD SPECIMENOrdering Facility: [facility] Address: [address] [place] [address] Performed By: #### 5 7021-8 ####[facility]ORATORYCLIA [id number] [address] [place] Nucleated RBC (Bld) [#/Vol] 10*3/uL Normal <0.01 [facility] Comment on above: Order Comment: Speci men Type: BLOOD SPECIMENOrdering Facility: [facility] Address: [address] [place] [address] Performed By: #### 5 7021-8 ####[facility]ORATORYCLIA [id number] [address] [place] Nucleated RBC/100 WBC (Bld) [Ratio] 0.0 /100 WBC Normal [facility] Comment on above: Order Comment: Speci men Type: BLOOD SPECIMENOrdering Facility: [facility] Address: [address] [place] [address] Performed By: #### 5 7021-8 ####[facility]ORATORYCLIA [id number] [address] [place] Platelet mean volume (Bld) [Entitic vol] 8.9 fL Low 9.0-12.7 [facility] Comment on above: Order Comment: Speci men Type: BLOOD SPECIMENOrdering Facility: [facility] Address: [address] [place] [address] Performed By: #### 5 7021-8 ####[facility] LABORATORYCLIA [id number] [address] [place] Platelets (Bld) [#/Vol] 408 10*3/uL High 150-400 [facility] Comment on above: Order Comment: Speci men Type: BLOOD SPECIMENOrdering Facility: [facility] Address: [address] [place] [address] Performed By: #### 5 7021-8 ####[facility] LABORATORYCLIA [id number] [place] [address] [place] RBC (Bld) [#/Vol] 3.26 10*6/uL Low 4.20-6.00 [facility] Comment on above: Order Comment: Speci men Type: BLOOD SPECIMENOrdering Facility: [facility] Address: [address] [place] [address] Performed By: #### 5 7021-8 ####[facility] LABORATORYCLIA [id number] [place] [address] [place] WBC (Bld) [#/Vol] 7.71 10*3/uL Normal 3.70-11.00 [facility] Comment on above: Order Comment: Speci men Type: BLOOD SPECIMENOrdering Facility: [facility] Address: [address] [place] [address] Performed By: #### 5 7021-8 ####[facility] LABORATORYCLIA [id number] [address] [place] CNDSon 08-19-2021 CNDS Normal [facility] CONSULT PROGon 08-19-2021 CONSULT PROG Normal [facility] THERAPY NTon 08-19-2021 THERAPY NT Normal [facility] Basic metabolic 2000 panelon 08-18-2021 Anion gap [Moles/Vol] 11 mmol/L Normal 9-18 [facility] Comment on above: Order Comment: Speci men Type: BLOOD SPECIMENOrdering Facility: [facility] Address: [address] [place] [address] Performed By: #### 2 4321-2 ####[facility] LABORATORYCLIA [id number] [place] [address] [place] Calcium [Mass/Vol] 8.6 mg/dL Normal 8.5-10.2 [facility] Comment on above: Order Comment: Speci men Type: BLOOD SPECIMENOrdering Facility: [facility] Address: [address] [place] [address] Performed By: #### 2 4321-2 ####[facility] LABORATORYCLIA [id number] [place] [address] [place] Chloride [Moles/Vol] 98 mmol/L Normal 97-105 [facility] Comment on above: Order Comment: Speci men Type: BLOOD SPECIMENOrdering Facility: [facility] Address: [address] [place] [address] Performed By: #### 2 4321-2 ####[facility] LABORATORYCLIA [id number] [place] [address] [place] CO2 [Moles/Vol] 28 mmol/L Normal 22-30 [facility] Comment on above: Order Comment: Speci men Type: BLOOD SPECIMENOrdering Facility: [facility] Address: [address] [place] [address] Performed By: #### 2 4321-2 ####[facility] LABORATORYCLIA [id number] [place] [address] [place] Creatinine [Mass/Vol] 0.56 mg/dL Low 0.73-1.22 [facility] Comment on above: Order Comment: Speci men Type: BLOOD SPECIMENOrdering Facility: [facility] Address: [address] [address] Performed By: #### 2 4321-2 ####[facility] HOSPITALCLIA [id number] [address] [place] ESTIMATED GLOMERULAR FILTRATION RATE 107 mL/min/1.73m??? Normal >=60 [facility] Comment on above: Order Comment: Shira feldman Type: BLOOD SPECIMENOrdering Facility: [facility] Address: [address] [address] Result Comment: Luzmaria mated Glomerular Filtration Rate [...] #### 2 4321-2 ####[facility] HOSPITALIA [id number] [place] [address] [place] Glucose [Mass/Vol] 113 mg/dL High 74-99 [facility] Comment on above: Order Comment: Shira feldman Type: BLOOD SPECIMENOrdering Facility: [facility] Address: [address] [address] Result Comment: The [place] [employer] (ADA) provides guidance for cutoff [...] Standards of Medical Care in Diabetes 2016, [place] [employer]. Diabetes Care. 2016.39(Suppl 1). Performed By: #### 2 4321-2 ####[facility] LABORATORYCLIA [id number] [place] [id number] [place] Potassium [Moles/Vol] 3.5 mmol/L Low 3.7-5.1 [facility] Comment on above: Order Comment: Speci men Type: BLOOD SPECIMENOrdering Facility: [facility] Address: [address] [place] [address] Performed By: #### 2 4321-2 ####[facility] LABORATORYCLIA [id number] [address] STATES OF [facility] Sodium [Moles/Vol] 137 mmol/L Normal 136-144 [facility] Comment on above: Order Comment: Speci men Type: BLOOD SPECIMENOrdering Facility: [facility] Address: [address] [place] [address] Performed By: #### 2 4321-2 ####[facility] LABORATORYCLIA [id number] [address] STATES OF [facility] Urea nitrogen [Mass/Vol] 10 mg/dL Normal 9-24 [facility] Comment on above: Order Comment: Speci men Type: BLOOD SPECIMENOrdering Facility: [facility] Address: [address] [place] [address] Performed By: #### 2 4321-2 ####[facility] LABORATORYCLIA [id number] [address] STATES OF [facility] CBC W Auto Differential pane l (Bld)on 08-18-2021 Basophils (Bld) [#/Vol] 10*3/uL Normal <0.11 [facility] Comment on above: Order Comment: Speci men Type: BLOOD SPECIMENOrdering Facility: [facility] Address: [address] [place] [address] Performed By: #### 5 7021-8 ####[facility] LABORATORYCLIA [id number] [address] [facility] Basophils/100 WBC (Bld) 0.3 % Normal [facility] Comment on above: Order Comment: Speci men Type: BLOOD SPECIMENOrdering Facility: [facility] Address: [address] [place] [address] Performed By: #### 5 7021-8 ####[facility] LABORATORYCLIA [id number] [address] Differential cell count method Nom (Bld) Auto Normal [facility] Comment on above: Order Comment: Speci men Type: BLOOD SPECIMENOrdering Facility: [facility] Address: [address] [place] [address] Performed By: #### 5 7021-8 ####[facility] LABORATORYCLIA [id number] [address] Eosinophils (Bld) [#/Vol] 0.37 10*3/uL Normal <0.46 [facility] Comment on above: Order Comment: Speci men Type: BLOOD SPECIMENOrdering Facility: [facility] Address: [address] [place] [address] Performed By: #### 5 7021-8 ####[facility] LABORATORYCLIA [id number] [address] Eosinophils/100 WBC (Bld) 4.8 % Normal [facility] Comment on above: Order Comment: Speci men Type: BLOOD SPECIMENOrdering Facility: [facility] Address: [address] [place] [address] Performed By: #### 5 7021-8 ####[facility] LABORATORYCLIA [id number] [address] Erythrocyte distribution width (RBC) [Ratio] 17.5 % High 11.5-15.0 [facility] Comment on above: Order Comment: Speci men Type: BLOOD SPECIMENOrdering Facility: [facility] Address: [address] [place] [address] Performed By: #### 5 7021-8 ####[facility] LABORATORYCLIA [id number] [address] Hematocrit (Bld) [Volume fraction] 30.2 % Low 39.0-51.0 [facility] Comment on above: Order Comment: Speci men Type: BLOOD SPECIMENOrdering Facility: [facility] Address: [address] [place] [address] Performed By: #### 5 7021-8 ####[facility] LABORATORYCLIA [id number] [address] Hemoglobin (Bld) [Mass/Vol] 9.5 g/dL Low 13.0-17.0 [facility] Comment on above: Order Comment: Speci men Type: BLOOD SPECIMENOrdering Facility: [facility] Address: [address] [place] [address] Performed By: #### 5 7021-8 ####[facility] LABORATORYCLIA [id number] [address] IMMATURE GRAN % 0.4 % Normal [facility] Comment on above: Order Comment: Speci men Type: BLOOD SPECIMENOrdering Facility: [facility] Address: [address] [place] [address] Performed By: #### 5 7021-8 ####[facility] LABORATORYCLIA [id number] [address] IMMATURE GRAN ABS 0.03 k/uL Normal <0.10 [facility] Comment on above: Order Comment: Speci men Type: BLOOD SPECIMENOrdering Facility: [facility] Address: [address] [place] [address] Performed By: #### 5 7021-8 ####[facility] LABORATORYCLIA [id number] [address] [place] Lymphocytes (Bld) [#/Vol] 1.85 10*3/uL Normal 1.00-4.00 [facility] Comment on above: Order Comment: Speci men Type: BLOOD SPECIMENOrdering Facility: [facility] Address: [address] [place] [address] Performed By: #### 5 7021-8 ####[facility]ATORYCLIA [id number] [address] Lymphocytes/100 WBC (Bld) 23.8 % Normal [facility] Comment on above: Order Comment: Speci men Type: BLOOD SPECIMENOrdering Facility: [facility] Address: [address] [place] [address] Performed By: #### 5 7021-8 ####[facility] LABORATORYCLIA [id number] [address] MCH (RBC) [Entitic mass] 29.5 pg Normal 26.0-34.0 [facility] Comment on above: Order Comment: Speci men Type: BLOOD SPECIMENOrdering Facility: [facility] Address: [address] [place] [address] Performed By: #### 5 7021-8 ####[facility] LABORATORYCLIA [id number] [address] MCHC (RBC) [Mass/Vol] 31.5 g/dL Normal 30.5-36.0 [facility] Comment on above: Order Comment: Speci men Type: BLOOD SPECIMENOrdering Facility: [facility] Address: [address] [place] [address] Performed By: #### 5 7021-8 ####[facility] LABORATORYCLIA [id number] [address] MCV (RBC) [Entitic vol] 93.8 fL Normal 80.0-100.0 [facility] Comment on above: Order Comment: Speci men Type: BLOOD SPECIMENOrdering Facility: [facility] Address: [address] [place] [address] Performed By: #### 5 7021-8 ####[facility] LABORATORYCLIA [id number] [address] Monocytes (Bld) [#/Vol] 0.49 10*3/uL Normal <0.87 [facility] Comment on above: Order Comment: Speci men Type: BLOOD SPECIMENOrdering Facility: [facility] Address: [address] [place] [address] Performed By: #### 5 7021-8 ####[facility]ORATORYCLIA [id number] [place] [address] [place] Monocytes/100 WBC (Bld) 6.3 % Normal [facility] Comment on above: Order Comment: Speci men Type: BLOOD SPECIMENOrdering Facility: [facility] Address: [address] [place] [address] Performed By: #### 5 7021-8 ####[facility]ORATORYCLIA [id number] [place] [address] [place] Neutrophils (Bld) [#/Vol] 5.00 10*3/uL Normal 1.45-7.50 [facility] Comment on above: Order Comment: Speci men Type: BLOOD SPECIMENOrdering Facility: [facility] Address: [address] [place] [address] Performed By: #### 5 7021-8 ####[facility] LABORATORYCLIA [id number] [address] [place] Neutrophils/100 WBC (Bld) 64.4 % Normal [facility] Comment on above: Order Comment: Speci men Type: BLOOD SPECIMENOrdering Facility: [facility] Address: [address] [place] [address] Performed By: #### 5 7021-8 ####[facility] LABORATORYCLIA [id number] [place] [address] [place] Nucleated RBC (Bld) [#/Vol] 10*3/uL Normal <0.01 [facility] Comment on above: Order Comment: Speci men Type: BLOOD SPECIMENOrdering Facility: [facility] Address: [address] [place] [address] Performed By: #### 5 7021-8 ####[facility]ATORYCLIA [id number] [place] [address] [place] Nucleated RBC/100 WBC (Bld) [Ratio] 0.0 /100 WBC Normal [facility] Comment on above: Order Comment: Speci men Type: BLOOD SPECIMENOrdering Facility: [facility] Address: [address] [place] [address] Performed By: #### 5 7021-8 ####[facility] LABORATORYCLIA [id number] [address] [place] Platelet mean volume (Bld) [Entitic vol] 9.1 fL Normal 9.0-12.7 [facility] Comment on above: Order Comment: Speci men Type: BLOOD SPECIMENOrdering Facility: [facility] Address: [address] [place] [address] Performed By: #### 5 7021-8 ####[facility] LABORATORYCLIA [id number] [place] [address] [place] Platelets (Bld) [#/Vol] 391 10*3/uL Normal 150-400 [facility] Comment on above: Order Comment: Speci men Type: BLOOD SPECIMENOrdering Facility: [facility] Address: [address] [place] [address] Performed By: #### 5 7021-8 ####[facility] LABORATORYCLIA [id number] [place] [address] [place] RBC (Bld) [#/Vol] 3.22 10*6/uL Low 4.20-6.00 [facility] Comment on above: Order Comment: Speci men Type: BLOOD SPECIMENOrdering Facility: [facility] Address: [address] [place] [address] Performed By: #### 5 7021-8 ####[facility] LABORATORYCLIA [id number] [address] [place] WBC (Bld) [#/Vol] 7.76 10*3/uL Normal 3.70-11.00 [facility] Comment on above: Order Comment: Speci men Type: BLOOD SPECIMENOrdering Facility: [facility] Address: [address] [place] [address] Performed By: #### 5 7021-8 ####[facility] LABORATORYCLIA [id number] [address] OF [facility] CONSULT PROGon 08-18-2021 CONSULT PROG Normal [facility] CASE MANAGEMon 08-17-2021 CASE MANAGEM Normal [facility] CBC W Auto Differential pane l (Bld)on 08-17-2021 Basophils (Bld) [#/Vol] 0.04 10*3/uL Normal <0.11 [facility] Comment on above: Order Comment: Speci men Type: BLOOD SPECIMENOrdering Facility: [facility] Address: [address] [place] [address] Performed By: #### 5 7021-8 ####[facility] LABORATORYCLIA [id number] [address] [place] Basophils/100 WBC (Bld) 0.5 % Normal [facility] Comment on above: Order Comment: Speci men Type: BLOOD SPECIMENOrdering Facility: [facility] Address: [address] [place] [address] Performed By: #### 5 7021-8 ####[facility] LABORATORYCLIA [id number] [address] [place] Differential cell count method Nom (Bld) Auto Normal [facility] Comment on above: Order Comment: Speci men Type: BLOOD SPECIMENOrdering Facility: [facility] Address: [address] [place] [address] Performed By: #### 5 7021-8 ####[facility]ATORYCLIA [id number] [place] [address] [place] Eosinophils (Bld) [#/Vol] 0.31 10*3/uL Normal <0.46 [facility] Comment on above: Order Comment: Speci men Type: BLOOD SPECIMENOrdering Facility: [facility] Address: [address] [place] [address] Performed By: #### 5 7021-8 ####[facility]ATORYCLIA [id number] [address] [place] Eosinophils/100 WBC (Bld) 3.7 % Normal [facility] Comment on above: Order Comment: Speci men Type: BLOOD SPECIMENOrdering Facility: [facility] Address: [address] [place] [address] Performed By: #### 5 7021-8 ####[facility] LABORATORYCLIA [id number] [address] Erythrocyte distribution width (RBC) [Ratio] 17.4 % High 11.5-15.0 [facility] Comment on above: Order Comment: Speci men Type: BLOOD SPECIMENOrdering Facility: [facility] Address: [address] [place] [address] Performed By: #### 5 7021-8 ####[facility] LABORATORYCLIA [id number] [address] Hematocrit (Bld) [Volume fraction] 30.6 % Low 39.0-51.0 [facility] Comment on above: Order Comment: Speci men Type: BLOOD SPECIMENOrdering Facility: [facility] Address: [address] [place] [address] Performed By: #### 5 7021-8 ####[facility] LABORATORYCLIA [id number] [address] STATES OF [facility] Hemoglobin (Bld) [Mass/Vol] 9.6 g/dL Low 13.0-17.0 [facility] Comment on above: Order Comment: Speci men Type: BLOOD SPECIMENOrdering Facility: [facility] Address: [address] [place] [address] Performed By: #### 5 7021-8 ####[facility] LABORATORYCLIA [id number] [address] IMMATURE GRAN % 0.2 % Normal [facility] Comment on above: Order Comment: Speci men Type: BLOOD SPECIMENOrdering Facility: [facility] Address: [address] [place] [address] Performed By: #### 5 7021-8 ####[facility] LABORATORYCLIA [id number] [address] IMMATURE GRAN ABS <0.03 Normal <0.10 [facility] Comment on above: Order Comment: Speci men Type: BLOOD SPECIMENOrdering Facility: [facility] Address: [address] [place] [address] Performed By: #### 5 7021-8 ####[facility] LABORATORYCLIA [id number] [address] [place] Lymphocytes (Bld) [#/Vol] 1.66 10*3/uL Normal 1.00-4.00 [facility] Comment on above: Order Comment: Speci men Type: BLOOD SPECIMENOrdering Facility: [facility] Address: [address] [place] [address] Performed By: #### 5 7021-8 ####[facility] LABORATORYCLIA [id number] [address] Lymphocytes/100 WBC (Bld) 19.9 % Normal [facility] Comment on above: Order Comment: Speci men Type: BLOOD SPECIMENOrdering Facility: [facility] Address: [address] [place] [address] Performed By: #### 5 7021-8 ####[facility] LABORATORYCLIA [id number] [address] [place] MCH (RBC) [Entitic mass] 28.9 pg Normal 26.0-34.0 [facility] Comment on above: Order Comment: Speci men Type: BLOOD SPECIMENOrdering Facility: [facility] Address: [address] [place] [address] Performed By: #### 5 7021-8 ####[facility] LABORATORYCLIA [id number] [address] [place] MCHC (RBC) [Mass/Vol] 31.4 g/dL Normal 30.5-36.0 [facility] Comment on above: Order Comment: Speci men Type: BLOOD SPECIMENOrdering Facility: [facility] Address: [address] [place] [address] Performed By: #### 5 7021-8 ####[facility] LABORATORYCLIA [id number] [place] [address] [place] MCV (RBC) [Entitic vol] 92.2 fL Normal 80.0-100.0 [facility] Comment on above: Order Comment: Speci men Type: BLOOD SPECIMENOrdering Facility: [facility] Address: [address] [place] [address] Performed By: #### 5 7021-8 ####[facility] LABORATORYCLIA [id number] [place] [address] [place] Monocytes (Bld) [#/Vol] 0.52 10*3/uL Normal <0.87 [facility] Comment on above: Order Comment: Speci men Type: BLOOD SPECIMENOrdering Facility: [facility] Address: [address] [place] [address] Performed By: #### 5 7021-8 ####[facility] LABORATORYCLIA [id number] [address] [place] Monocytes/100 WBC (Bld) 6.2 % Normal [facility] Comment on above: Order Comment: Speci men Type: BLOOD SPECIMENOrdering Facility: [facility] Address: [address] [place] [address] Performed By: #### 5 7021-8 ####[facility] LABORATORYCLIA [id number] [place] [address] [place] Neutrophils (Bld) [#/Vol] 5.78 10*3/uL Normal 1.45-7.50 [facility] Comment on above: Order Comment: Speci men Type: BLOOD SPECIMENOrdering Facility: [facility] Address: [address] [place] [address] Performed By: #### 5 7021-8 ####[facility] LABORATORYCLIA [id number] [address] [place] Neutrophils/100 WBC (Bld) 69.5 % Normal [facility] Comment on above: Order Comment: Speci men Type: BLOOD SPECIMENOrdering Facility: [facility] Address: [address] [place], [place] [address] Performed By: #### 5 7021-8 ####[facility] LABORATORYCLIA [id number] [address] Nucleated RBC (Bld) [#/Vol] 10*3/uL Normal <0.01 [facility] Comment on above: Order Comment: Speci men Type: BLOOD SPECIMENOrdering Facility: [facility] Address: [address] [place] [address] Performed By: #### 5 7021-8 ####[facility] LABORATORYCLIA [id number] [address] [facility] Nucleated RBC/100 WBC (Bld) [Ratio] 0.0 /100 WBC Normal [facility] Comment on above: Order Comment: Speci men Type: BLOOD SPECIMENOrdering Facility: [facility] Address: [address] [place] [address] Performed By: #### 5 7021-8 ####[facility] LABORATORYCLIA [id number] [address] Platelet mean volume (Bld) [Entitic vol] 9.2 fL Normal 9.0-12.7 [facility] Comment on above: Order Comment: Speci men Type: BLOOD SPECIMENOrdering Facility: [facility] Address: [address] [place] [address] Performed By: #### 5 7021-8 ####[facility] LABORATORYCLIA [id number] [address] [place] Platelets (Bld) [#/Vol] 379 10*3/uL Normal 150-400 [facility] Comment on above: Order Comment: Speci men Type: BLOOD SPECIMENOrdering Facility: [facility] Address: [address] [place] [address] Performed By: #### 5 7021-8 ####[facility] LABORATORYCLIA [id number] [address] [place] RBC (Bld) [#/Vol] 3.32 10*6/uL Low 4.20-6.00 [facility] Comment on above: Order Comment: Speci men Type: BLOOD SPECIMENOrdering Facility: [facility] Address: [address] [place] [address] Performed By: #### 5 7021-8 ####[facility] LABORATORYCLIA [id number] [place] [address] [place] WBC (Bld) [#/Vol] 8.33 10*3/uL Normal 3.70-11.00 [facility] Comment on above: Order Comment: Speci men Type: BLOOD SPECIMENOrdering Facility: [facility] Address: [address] [place] [address] Performed By: #### 5 7021-8 ####[facility] LABORATORYCLIA [id number] [address] [place] CONSULT PROGon 08-17-2021 CONSULT PROG Normal [facility] NUTRITIONon 08-17-2021 NUTRITION Normal [facility] Basic metabolic 2000 panelon 08-16-2021 Anion gap [Moles/Vol] 14 mmol/L Normal 9-18 [facility] Comment on above: Order Comment: Speci men Type: BLOOD SPECIMENOrdering Facility: [facility] Address: [address] [place] [address] Performed By: #### 2 4321-2, 36139-9 ####[facility] LABORATORYCLIA [id number] [place] [address] [place] Calcium [Mass/Vol] 8.8 mg/dL Normal 8.5-10.2 [facility] Comment on above: Order Comment: Speci men Type: BLOOD SPECIMENOrdering Facility: [facility] Address: [address] [place] [address] Performed By: #### 2 4321-2, 87188-3 ####[facility] LABORATORYCLIA [id number] [place] [address] [place] Chloride [Moles/Vol] 97 mmol/L Normal 97-105 [facility] Comment on above: Order Comment: Speci men Type: BLOOD SPECIMENOrdering Facility: [facility] Address: [address] [place] [address] Performed By: #### 2 432-2, ####[facility] LABORATORYCLIA [id number] [address] [place] CO2 [Moles/Vol] 27 mmol/L Normal 22-30 [facility] Comment on above: Order Comment: Speci men Type: BLOOD SPECIMENOrdering Facility: [facility] Address: [address] [place] [address] Performed By: #### 2 4322, ####[facility] LABORATORYCLIA [id number] [address] STATES OF [facility] Creatinine [Mass/Vol] 0.50 mg/dL Low 0.73-1.22 [facility] Comment on above: Order Comment: Speci men Type: BLOOD SPECIMENOrdering Facility: [facility] Address: [address] [place] [address] Performed By: #### 2 4320-06, ####[facility] LABORATORYCLIA [id number] [address] ESTIMATED GLOMERULAR FILTRATION RATE 110 mL/min/1.73m??? Normal >=60 [facility] Comment on above: Order Comment: Speci men Type: BLOOD SPECIMENOrdering Facility: [facility] Address: [address] [place] [address] Result Comment: Luzmaria mated Glomerular Filtration Rate [...] actual GFR. Performed By: #### 2 4321-2, ####[facility] LABORATORYCLIA [id number] [place] [id number] [place] Glucose [Mass/Vol] 101 mg/dL High 74-99 [facility] Comment on above: Order Comment: Speccara men Type: BLOOD SPECIMENOrdering Facility: [facility] Address: [address] [place] [address] Result Comment: The [place] Diabetes [employer] (ADA) provides guidance for cutoff [...] Standards of Medical Care in Diabetes 2016, [place] [employer]. Diabetes Care. 2016.39(Suppl 1). Performed By: #### 2 4320-06, ####[facility] LABORATORYCLIA [id number] [place] [address] [place] Potassium [Moles/Vol] 3.6 mmol/L Low 3.7-5.1 [facility] Comment on above: Order Comment: Shira feldman Type: BLOOD SPECIMENOrdering Facility: [facility] Address: [address] [place] [address] Performed By: #### 2 ####[facility] LABORATORYCLIA [id number] [place] [address] [place] Sodium [Moles/Vol] 138 mmol/L Normal 136-144 [facility] Comment on above: Order Comment: Shira feldman Type: BLOOD SPECIMENOrdering Facility: [facility] Address: [address] [place] [address] Performed By: #### 2 4320-06, ####[facility] LABORATORYCLIA [id number] [place] [address] [place] Urea nitrogen [Mass/Vol] 11 mg/dL Normal 9-24 [facility] Comment on above: Order Comment: Speci men Type: BLOOD SPECIMENOrdering Facility: [facility] Address: [address] [place] [address] Performed By: #### 2 4321-2, 39776-9 ####[facility] LABORATORYCLIA [id number] [address] [place] CASE MANAGEMon 08-16-2021 CASE MANAGEM Normal [facility] CBC W Auto Differential pane l (Bld)on 08-16-2021 Basophils (Bld) [#/Vol] 0.03 10*3/uL Normal <0.11 [facility] Comment on above: Order Comment: Speci men Type: BLOOD SPECIMENOrdering Facility: [facility] Address: [address] [place] [address] Performed By: #### 5 7021-8 ####[facility] LABORATORYCLIA [id number] [address] [place] Basophils/100 WBC (Bld) 0.4 % Normal [facility] Comment on above: Order Comment: Speci men Type: BLOOD SPECIMENOrdering Facility: [facility] Address: [address] [place] [address] Performed By: #### 5 7021-8 ####[facility] LABORATORYCLIA [id number] [address] [place] Differential cell count method Nom (Bld) Auto Normal [facility] Comment on above: Order Comment: Speci men Type: BLOOD SPECIMENOrdering Facility: [facility] Address: [address] [place] [address] Performed By: #### 5 7021-8 ####[facility] LABORATORYCLIA [id number] [place] [address] [place] Eosinophils (Bld) [#/Vol] 0.19 10*3/uL Normal <0.46 [facility] Comment on above: Order Comment: Speci men Type: BLOOD SPECIMENOrdering Facility: [facility] Address: [address] [place] [address] Performed By: #### 5 7021-8 ####[facility]ATORYCLIA [id number] [address] [facility] Eosinophils/100 WBC (Bld) 2.5 % Normal [facility] Comment on above: Order Comment: Speci men Type: BLOOD SPECIMENOrdering Facility: [facility] Address: [address] [place] [address] Performed By: #### 5 7021-8 ####[facility] LABORATORYCLIA [id number] [address] Erythrocyte distribution width (RBC) [Ratio] 17.1 % High 11.5-15.0 [facility] Comment on above: Order Comment: Speci men Type: BLOOD SPECIMENOrdering Facility: [facility] Address: [address] [place] [address] Performed By: #### 5 7021-8 ####[facility] LABORATORYCLIA [id number] [address] Hematocrit (Bld) [Volume fraction] 29.2 % Low 39.0-51.0 [facility] Comment on above: Order Comment: Speci men Type: BLOOD SPECIMENOrdering Facility: [facility] Address: [address] [place] [address] Performed By: #### 5 7021-8 ####[facility] LABORATORYCLIA [id number] [address] [place] Hemoglobin (Bld) [Mass/Vol] 9.0 g/dL Low 13.0-17.0 [facility] Comment on above: Order Comment: Speci men Type: BLOOD SPECIMENOrdering Facility: [facility] Address: [address] [place] [address] Performed By: #### 5 7021-8 ####[facility]ORATORYCLIA [id number] [address] IMMATURE GRAN % 0.3 % Normal [facility] Comment on above: Order Comment: Speci men Type: BLOOD SPECIMENOrdering Facility: [facility] Address: [address] [place] [address] Performed By: #### 5 7021-8 ####[facility] LABORATORYCLIA [id number] [address] IMMATURE GRAN ABS <0.03 Normal <0.10 [facility] Comment on above: Order Comment: Speci men Type: BLOOD SPECIMENOrdering Facility: [facility] Address: [address] [place] [address] Performed By: #### 5 7021-8 ####[facility] LABORATORYCLIA [id number] [address] Lymphocytes (Bld) [#/Vol] 1.41 10*3/uL Normal 1.00-4.00 [facility] Comment on above: Order Comment: Speci men Type: BLOOD SPECIMENOrdering Facility: [facility] Address: [address] [place] [address] Performed By: #### 5 7021-8 ####[facility] LABORATORYCLIA [id number] [address] Lymphocytes/100 WBC (Bld) 18.4 % Normal [facility] Comment on above: Order Comment: Speci men Type: BLOOD SPECIMENOrdering Facility: [facility] Address: [address] [place] [address] Performed By: #### 5 7021-8 ####[facility] LABORATORYCLIA [id number] [address] MCH (RBC) [Entitic mass] 28.0 pg Normal 26.0-34.0 [facility] Comment on above: Order Comment: Speci men Type: BLOOD SPECIMENOrdering Facility: [facility] Address: [address] [place] [address] Performed By: #### 5 7021-8 ####[facility] LABORATORYCLIA [id number] [address] MCHC (RBC) [Mass/Vol] 30.8 g/dL Normal 30.5-36.0 [facility] Comment on above: Order Comment: Speci men Type: BLOOD SPECIMENOrdering Facility: [facility] Address: [address] [place] [address] Performed By: #### 5 7021-8 ####[facility] LABORATORYCLIA [id number] [address] [place] MCV (RBC) [Entitic vol] 91.0 fL Normal 80.0-100.0 [facility] Comment on above: Order Comment: Speci men Type: BLOOD SPECIMENOrdering Facility: [facility] Address: [address] [place] [address] Performed By: #### 5 7021-8 ####[facility] LABORATORYCLIA [id number] [address] [place] Monocytes (Bld) [#/Vol] 0.47 10*3/uL Normal <0.87 [facility] Comment on above: Order Comment: Speci men Type: BLOOD SPECIMENOrdering Facility: [facility] Address: [address] [place] [address] Performed By: #### 5 7021-8 ####[facility] LABORATORYCLIA [id number] [address] Monocytes/100 WBC (Bld) 6.1 % Normal [facility] Comment on above: Order Comment: Speci men Type: BLOOD SPECIMENOrdering Facility: [facility] Address: [address] [place] [address] Performed By: #### 5 7021-8 ####[facility] LABORATORYCLIA [id number] [address] [place] Neutrophils (Bld) [#/Vol] 5.55 10*3/uL Normal 1.45-7.50 [facility] Comment on above: Order Comment: Speci men Type: BLOOD SPECIMENOrdering Facility: [facility] Address: [address] [place] [address] Performed By: #### 5 7021-8 ####[facility] LABORATORYCLIA [id number] [address] Neutrophils/100 WBC (Bld) 72.3 % Normal [facility] Comment on above: Order Comment: Speci men Type: BLOOD SPECIMENOrdering Facility: [facility] Address: [address] [place] [address] Performed By: #### 5 7021-8 ####[facility] LABORATORYCLIA [id number] [address] [place] Nucleated RBC (Bld) [#/Vol] 10*3/uL Normal <0.01 [facility] Comment on above: Order Comment: Speci men Type: BLOOD SPECIMENOrdering Facility: [facility] Address: [address] [place] [address] Performed By: #### 5 7021-8 ####[facility] LABORATORYCLIA [id number] [address] Nucleated RBC/100 WBC (Bld) [Ratio] 0.0 /100 WBC Normal [facility] Comment on above: Order Comment: Speci men Type: BLOOD SPECIMENOrdering Facility: [facility] Address: [address] [place] [address] Performed By: #### 5 7021-8 ####[facility] LABORATORYCLIA [id number] [address] [place] Platelet mean volume (Bld) [Entitic vol] 9.3 fL Normal 9.0-12.7 [facility] Comment on above: Order Comment: Speci men Type: BLOOD SPECIMENOrdering Facility: [facility] Address: [address] [place] [address] Performed By: #### 5 7021-8 ####[facility] LABORATORYCLIA [id number] [address] Platelets (Bld) [#/Vol] 319 10*3/uL Normal 150-400 [facility] Comment on above: Order Comment: Speci men Type: BLOOD SPECIMENOrdering Facility: [facility] Address: [address] [place] [address] Performed By: #### 5 7021-8 ####[facility] LABORATORYCLIA [id number] [address] STATES OF [facility] RBC (Bld) [#/Vol] 3.21 10*6/uL Low 4.20-6.00 [facility] Comment on above: Order Comment: Speci men Type: BLOOD SPECIMENOrdering Facility: [facility] Address: [address] [place] [address] Performed By: #### 5 7021-8 ####[facility] LABORATORYCLIA [id number] [address] OF [facility] WBC (Bld) [#/Vol] 7.67 10*3/uL Normal 3.70-11.00 [facility] Comment on above: Order Comment: Speci men Type: BLOOD SPECIMENOrdering Facility: [facility] Address: [address] [place] [address] Performed By: #### 5 7021-8 ####[facility] LABORATORYCLIA [id number] [address] [facility] Basophils (Bld) [#/Vol] 0.04 10*3/uL Normal <0.11 [facility] Comment on above: Order Comment: Speci men Type: BLOOD SPECIMENOrdering Facility: [facility] Address: [address] [place] [address] Performed By: #### 5 7021-8 ####[facility] LABORATORYCLIA [id number] [address] Basophils/100 WBC (Bld) 0.5 % Normal [facility] Comment on above: Order Comment: Speci men Type: BLOOD SPECIMENOrdering Facility: [facility] Address: [address] [place] [address] Performed By: #### 5 7021-8 ####[facility] LABORATORYCLIA [id number] [address] Differential cell count method Nom (Bld) Auto Normal [facility] Comment on above: Order Comment: Speci men Type: BLOOD SPECIMENOrdering Facility: [facility] Address: [address] [place] [address] Performed By: #### 5 7021-8 ####[facility] LABORATORYCLIA [id number] [address] [place] Eosinophils (Bld) [#/Vol] 0.19 10*3/uL Normal <0.46 [facility] Comment on above: Order Comment: Speci men Type: BLOOD SPECIMENOrdering Facility: [facility] Address: [address] [place] [address] Performed By: #### 5 7021-8 ####[facility] LABORATORYCLIA [id number] [address] [place] Eosinophils/100 WBC (Bld) 2.5 % Normal [facility] Comment on above: Order Comment: Speci men Type: BLOOD SPECIMENOrdering Facility: [facility] Address: [address] [place] [address] Performed By: #### 5 7021-8 ####[facility] LABORATORYCLIA [id number] [address] [place] Erythrocyte distribution width (RBC) [Ratio] 17.2 % High 11.5-15.0 [facility] Comment on above: Order Comment: Speci men Type: BLOOD SPECIMENOrdering Facility: [facility] Address: [address] [place] [address] Performed By: #### 5 7021-8 ####[facility] LABORATORYCLIA [id number] [address] [place] Hematocrit (Bld) [Volume fraction] 29.5 % Low 39.0-51.0 [facility] Comment on above: Order Comment: Speci men Type: BLOOD SPECIMENOrdering Facility: [facility] Address: [address] [place] [address] Performed By: #### 5 7021-8 ####[facility] LABORATORYCLIA [id number] [address] OF [facility] Hemoglobin (Bld) [Mass/Vol] 9.2 g/dL Low 13.0-17.0 [facility] Comment on above: Order Comment: Speci men Type: BLOOD SPECIMENOrdering Facility: [facility] Address: [address] [place] [address] Performed By: #### 5 7021-8 ####[facility] LABORATORYCLIA [id number] [address] IMMATURE GRAN % 0.4 % Normal [facility] Comment on above: Order Comment: Speci men Type: BLOOD SPECIMENOrdering Facility: [facility] Address: [address] [place] [address] Performed By: #### 5 7021-8 ####[facility] LABORATORYCLIA [id number] [address] IMMATURE GRAN ABS 0.03 k/uL Normal <0.10 [facility] Comment on above: Order Comment: Speci men Type: BLOOD SPECIMENOrdering Facility: [facility] Address: [address] [place] [address] Performed By: #### 5 7021-8 ####[facility] LABORATORYCLIA [id number] [address] [place] Lymphocytes (Bld) [#/Vol] 1.50 10*3/uL Normal 1.00-4.00 [facility] Comment on above: Order Comment: Speci men Type: BLOOD SPECIMENOrdering Facility: [facility] Address: [address] [place] [address] Performed By: #### 5 7021-8 ####[facility] LABORATORYCLIA [id number] [address] Lymphocytes/100 WBC (Bld) 19.7 % Normal [facility] Comment on above: Order Comment: Speci men Type: BLOOD SPECIMENOrdering Facility: [facility] Address: [address] [place] [address] Performed By: #### 5 7021-8 ####[facility] LABORATORYCLIA [id number] [address] MCH (RBC) [Entitic mass] 28.3 pg Normal 26.0-34.0 [facility] Comment on above: Order Comment: Speci men Type: BLOOD SPECIMENOrdering Facility: [facility] Address: [address] [place] [address] Performed By: #### 5 7021-8 ####[facility] LABORATORYCLIA [id number] [address] MCHC (RBC) [Mass/Vol] 31.2 g/dL Normal 30.5-36.0 [facility] Comment on above: Order Comment: Speci men Type: BLOOD SPECIMENOrdering Facility: [facility] Address: [address] [place] [address] Performed By: #### 5 7021-8 ####[facility] LABORATORYCLIA [id number] [address] MCV (RBC) [Entitic vol] 90.8 fL Normal 80.0-100.0 [facility] Comment on above: Order Comment: Speci men Type: BLOOD SPECIMENOrdering Facility: [facility] Address: [address] [place] [address] Performed By: #### 5 7021-8 ####[facility]ORATORYCLIA [id number] [address] Monocytes (Bld) [#/Vol] 0.49 10*3/uL Normal <0.87 [facility] Comment on above: Order Comment: Speci men Type: BLOOD SPECIMENOrdering Facility: [facility] Address: [address] [place] [address] Performed By: #### 5 7021-8 ####[facility] LABORATORYCLIA [id number] [address] Monocytes/100 WBC (Bld) 6.4 % Normal [facility] Comment on above: Order Comment: Speci men Type: BLOOD SPECIMENOrdering Facility: [facility] Address: [address] [address] Performed By: #### 5 7021-8 ####[facility]ORYCLIA [id number] [address] [place] Neutrophils (Bld) [#/Vol] 5.38 10*3/uL Normal 1.45-7.50 [facility] Comment on above: Order Comment: Speci men Type: BLOOD SPECIMENOrdering Facility: [facility] Address: [address] [place] [address] Performed By: #### 5 7021-8 ####[facility]ATORYCLIA [id number] [address] Neutrophils/100 WBC (Bld) 70.5 % Normal [facility] Comment on above: Order Comment: Speci men Type: BLOOD SPECIMENOrdering Facility: [facility] Address: [address] [place] [address] Performed By: #### 5 7021-8 ####[facility]ORATORYCLIA [id number] [address] Nucleated RBC (Bld) [#/Vol] 10*3/uL Normal <0.01 [facility] Comment on above: Order Comment: Speci men Type: BLOOD SPECIMENOrdering Facility: [facility] Address: [address] [address] Performed By: #### 5 7021-8 ####[facility]ORYCLIA [id number] [address] Nucleated RBC/100 WBC (Bld) [Ratio] 0.0 /100 WBC Normal [facility] Comment on above: Order Comment: Speci men Type: BLOOD SPECIMENOrdering Facility: [facility] Address: [address] [place] [address] Performed By: #### 5 7021-8 ####[facility] LABORATORYCLIA [id number] [place] [address] [place] Platelet mean volume (Bld) [Entitic vol] 9.0 fL Normal 9.0-12.7 [facility] Comment on above: Order Comment: Speci men Type: BLOOD SPECIMENOrdering Facility: [facility] Address: [address] [place] [address] Performed By: #### 5 7021-8 ####[facility] LABORATORYCLIA [id number] [place] [address] [place] Platelets (Bld) [#/Vol] 316 10*3/uL Normal 150-400 [facility] Comment on above: Order Comment: Speci men Type: BLOOD SPECIMENOrdering Facility: [facility] Address: [address] [place] [address] Performed By: #### 5 7021-8 ####[facility] LABORATORYCLIA [id number] [place] [address] [place] RBC (Bld) [#/Vol] 3.25 10*6/uL Low 4.20-6.00 [facility] Comment on above: Order Comment: Speci men Type: BLOOD SPECIMENOrdering Facility: [facility] Address: [address] [place] [address] Performed By: #### 5 7021-8 ####[facility] LABORATORYCLIA [id number] [address] [place] WBC (Bld) [#/Vol] 7.63 10*3/uL Normal 3.70-11.00 [facility] Comment on above: Order Comment: Speci men Type: BLOOD SPECIMENOrdering Facility: [facility] Address: [address] [place] [address] Performed By: #### 5 7021-8 ####[facility] LABORATORYCLIA [id number] [address] STATES [place] [place] Basophils (Bld) [#/Vol] Normal <0.11 [facility] Comment on above: Order Comment: Speci men Type: BLOOD SPECIMENOrdering Facility: [facility] Address: [address] [place] [address] Result Comment: Carolina Owens RN informed lab after results autoverified that she rd on the wrong patient. Lab to credit. Nurse to redraw on correct patient.Corrected result: Previously reported as 0.04 k/uL on 08/16/2021 at 4:44 AM EDT. Performed By: #### 5 7021-8 ####[facility] LABORATORYCLIA [id number] [address] [place] [facility] Basophils/100 WBC (Bld) Normal [facility] Comment on above: Order Comment: Speci men Type: BLOOD SPECIMENOrdering Facility: [facility] Address: [address] [place] [address] Result Comment: Tati ected result: Previously reported as 0.4 % on 08/16/2021 at 4:44 AM EDT. Performed By: #### 5 7021-8 ####[facility] LABORATORYCLIA [id number] [address] CBC W Differential panel, method unspecified (Bld) Normal [facility] Comment on above: Order Comment: Speci men Type: BLOOD SPECIMENOrdering Facility: [facility] Address: [address] [place] [address] Result Comment: Carolina Owens RN informed lab after results autoverified that she rd on the wrong patient. Lab to credit. Nurse to redraw on correct patient. Performed By: #### 5 7021-8 ####[facility] LABORATORYCLIA [id number] [address] Differential cell count method Nom (Bld) Normal [facility] Comment on above: Order Comment: Speci men Type: BLOOD SPECIMENOrdering Facility: [facility] Address: [address] [place] [address] Result Comment: Carolina Owens RN informed lab after results autoverified that she rd on the wrong patient. Lab to credit. Nurse to redraw on correct patient.Corrected result: Previously reported as Auto on 08/16/2021 at 4:44 AM EDT. Performed By: #### 5 7021-8 ####[facility] LABORATORYCLIA [id number] [address] STATES [place] Eosinophils (Bld) [#/Vol] Normal <0.46 [facility] Comment on above: Order Comment: Speci men Type: BLOOD SPECIMENOrdering Facility: [facility] Address: [address] [place] [address] Result Comment: Carolina Owens RN informed lab after results autoverified that she rd on the wrong patient. Lab to credit. Nurse to redraw on correct patient.Corrected result: Previously reported as 0.07 k/uL on 08/16/2021 at 4:44 AM EDT. Performed By: #### 5 7021-8 ####[facility] LABORATORYCLIA [id number] [address] Eosinophils/100 WBC (Bld) Normal [facility] Comment on above: Order Comment: Speci [facility] Type: BLOOD SPECIMENOrdering Facility: [facility] Address: [address] [place] [address] Result Comment: Carolina Owens RN informed lab after results autoverified that she rd on the wrong patient. Lab to credit. Nurse to redraw on correct patient.Corrected result: Previously reported as 0.7 % on 08/16/2021 at 4:44 AM EDT. Performed By: #### 5 7021-8 ####[facility] LABORATORYCLIA [id number] [address] OF [place] Erythrocyte distribution width (RBC) [Ratio] Normal 11.5-15.0 [facility] Comment on above: Order Comment: Speci [facility] Type: BLOOD SPECIMENOrdering Facility: [facility] Address: [address] [place] [address] Result Comment: Carolina Owens RN informed lab after results autoverified that she rd on the wrong patient. Lab to credit. Nurse to redraw on correct patient.Corrected result: Previously reported as 14.2 % on 08/16/2021 at 4:44 AM EDT. Performed By: #### 5 7021-8 ####[facility] LABORATORYCLIA [id number] [address] Hematocrit (Bld) [Volume fraction] Normal 39.0-51.0 [facility] Comment on above: Order Comment: Speci men Type: BLOOD SPECIMENOrdering Facility: [facility] Address: [address] [place] [address] Result Comment: Carolina Owens RN informed lab after results autoverified that she rd on the wrong patient. Lab to credit. Nurse to redraw on correct patient.Corrected result: Previously reported as 34.3 % on 08/16/2021 at 4:44 AM EDT. Performed By: #### 5 7021-8 ####[facility] LABORATORYCLIA [id number] [address] Hemoglobin (Bld) [Mass/Vol] Normal 13.0-17.0 [facility] Comment on above: Order Comment: Speci men Type: BLOOD SPECIMENOrdering Facility: [facility] Address: [address] [place] [address] Result Comment: Carolina Owens RN informed lab after results autoverified that she rd on the wrong patient. Lab to credit. Nurse to redraw on correct patient.Corrected result: Previously reported as 11.2 g/dL on 08/16/2021 at 4:44 AM EDT. Performed By: #### 5 7021-8 ####[facility] LABORATORYCLIA [id number] [address] IMMATURE GRAN % Normal [facility] Comment on above: Order Comment: Speci men Type: BLOOD SPECIMENOrdering Facility: [facility] Address: [address] [place] [address] Result Comment: Carolina Owens RN informed lab after results autoverified that she rd on the wrong patient. Lab to credit. Nurse to redraw on correct patient.Corrected result: Previously reported as 0.8 % on 08/16/2021 at 4:44 AM EDT. Performed By: #### 5 7021-8 ####[facility] LABORATORYCLIA [id number] [address] STATES OF [facility] IMMATURE GRAN ABS Normal <0.10 [facility] Comment on above: Order Comment: Speci men Type: BLOOD SPECIMENOrdering Facility: [facility] Address: [address] [place] [address] Result Comment: Tati ected result: Previously reported as 0.08 k/uL on 08/16/2021 at 4:44 AM EDT. Performed By: #### 5 7021-8 ####[facility] LABORATORYCLIA [id number] [address] Lymphocytes (Bld) [#/Vol] Normal 1.00-4.00 [facility] Comment on above: Order Comment: Speci men Type: BLOOD SPECIMENOrdering Facility: [facility] Address: [address] [place] [address] Result Comment: Carolina Owens RN informed lab after results autoverified that she rd on the wrong patient. Lab to credit. Nurse to redraw on correct patient.Corrected result: Previously reported as 1.17 k/uL on 08/16/2021 at 4:44 AM EDT. Performed By: #### 5 7021-8 ####[facility] LABORATORYCLIA [id number] [address] Lymphocytes/100 WBC (Bld) Normal [facility] Comment on above: Order Comment: Speci men Type: BLOOD SPECIMENOrdering Facility: [facility] Address: [address] [place] [address] Result Comment: Carolina Owens RN informed lab after results autoverified that she rd on the wrong patient. Lab to credit. Nurse to redraw on correct patient.Corrected result: Previously reported as 12.0 % on 08/16/2021 at 4:44 AM EDT. Performed By: #### 5 7021-8 ####[facility] LABORATORYCLIA [id number] [address] [place] MCHC (RBC) [Mass/Vol] Normal 30.5-36.0 [facility] Comment on above: Order Comment: Speci men Type: BLOOD SPECIMENOrdering Facility: [facility] Address: [address] [place] [address] Result Comment: Carolina Owens RN informed lab after results autoverified that she rd on the wrong patient. Lab to credit. Nurse to redraw on correct patient.Corrected result: Previously reported as 32.7 g/dL on 08/16/2021 at 4:44 AM EDT. Performed By: #### 5 7021-8 ####[facility] LABORATORYCLIA [id number] [address] [place] MCV (RBC) [Entitic vol] Normal 80.0-100.0 [facility] Comment on above: Order Comment: Speci men Type: BLOOD SPECIMENOrdering Facility: [facility] Address: [address] [place] [address] Result Comment: Carolina Owens RN informed lab after results autoverified that she rd on the wrong patient. Lab to credit. Nurse to redraw on correct patient.Corrected result: Previously reported as 94.2 fL on 08/16/2021 at 4:44 AM EDT. Performed By: #### 5 7021-8 ####[facility] LABORATORYCLIA [id number] [address] OF [facility] Monocytes (Bld) [#/Vol] Normal <0.87 [facility] Comment on above: Order Comment: Speci men Type: BLOOD SPECIMENOrdering Facility: [facility] Address: [address] [place] [address] Result Comment: Carolina Owens RN informed lab after results autoverified that she rd on the wrong patient. Lab to credit. Nurse to redraw on correct patient.Corrected result: Previously reported as 0.99 k/uL on 08/16/2021 at 4:44 AM EDT. Performed By: #### 5 7021-8 ####[facility] LABORATORYCLIA [id number] [address] [place] Monocytes/100 WBC (Bld) Normal [facility] Comment on above: Order Comment: Speci men Type: BLOOD SPECIMENOrdering Facility: [facility] Address: [address] [place] [address] Result Comment: Carolina Owens RN informed lab after results autoverified that she rd on the wrong patient. Lab to credit. Nurse to redraw on correct patient.Corrected result: Previously reported as 10.2 % on 08/16/2021 at 4:44 AM EDT. Performed By: #### 5 7021-8 ####[facility] LABORATORYCLIA [id number] [address] [place] Neutrophils (Bld) [#/Vol] Normal 1.45-7.50 [facility] Comment on above: Order Comment: Speci men Type: BLOOD SPECIMENOrdering Facility: [facility] Address: [address] [place] [address] Result Comment: Carolina Owens RN informed lab after results autoverified that she rd on the wrong patient. Lab to credit. Nurse to redraw on correct patient.Corrected result: Previously reported as 7.40 k/uL on 08/16/2021 at 4:44 AM EDT. Performed By: #### 5 7021-8 ####[facility] LABORATORYCLIA [id number] [address] STATES OF [facility] Neutrophils/100 WBC (Bld) Normal [facility] Comment on above: Order Comment: Speci men Type: BLOOD SPECIMENOrdering Facility: [facility] Address: [address] [place] [address] Result Comment: Carolina Owens RN informed lab after results autoverified that she rd on the wrong patient. Lab to credit. Nurse to redraw on correct patient.Corrected result: Previously reported as 75.9 % on 08/16/2021 at 4:44 AM EDT. Performed By: #### 5 7021-8 ####[facility] LABORATORYCLIA [id number] [place] [address] [place] Platelet mean volume (Bld) [Entitic vol] Normal 9.0-12.7 [facility] Comment on above: Order Comment: Speci men Type: BLOOD SPECIMENOrdering Facility: [facility] Address: [address] [place] [address] Result Comment: Carolina Owens RN informed lab after results autoverified that she rd on the wrong patient. Lab to credit. Nurse to redraw on correct patient.Corrected result: Previously reported as 9.1 fL on 08/16/2021 at 4:44 AM EDT. Performed By: #### 5 7021-8 ####[facility] LABORATORYCLIA [id number] [place] [address] [place] Platelets (Bld) [#/Vol] Normal 150-400 [facility] Comment on above: Order Comment: Shira feldman Type: BLOOD SPECIMENOrdering Facility: [facility] Address: [address] [place] [address] Result Comment: Carolina Owens RN informed lab after results autoverified that she rd on the wrong patient. Lab to credit. Nurse to redraw on correct patient.Corrected result: Previously reported as 338 k/uL on 08/16/2021 at 4:44 AM EDT. Performed By: #### 5 7021-8 ####[facility] LABORATORYCLIA [id number] [address] [place] RBC (Bld) [#/Vol] Normal 4.20-6.00 [facility] Comment on above: Order Comment: Shira feldman Type: BLOOD SPECIMENOrdering Facility: [facility] Address: [address] [place] [address] Result Comment: Carolina Oewns RN informed lab after results autoverified that she rd on the wrong patient. Lab to credit. Nurse to redraw on correct patient.Corrected result: Previously reported as 3.64 m/uL on 08/16/2021 at 4:44 AM EDT. Performed By: #### 5 7021-8 ####[facility]ORATORYCLIA [id number] [address] [place] WBC (Bld) [#/Vol] Normal 3.70-11.00 [facility] Comment on above: Order Comment: Speci men Type: BLOOD SPECIMENOrdering Facility: [facility] Address: [address] [place] [address] Result Comment: Carolina Owens RN informed lab after results autoverified that she rd on the wrong patient. Lab to credit. Nurse to redraw on correct patient.Corrected result: Previously reported as 9.75 k/uL on 08/16/2021 at 4:44 AM EDT. Performed By: #### 5 7021-8 ####[facility] LABORATORYCLIA [id number] [address] CONSULT PROGon 08-16-2021 CONSULT PROG [facility] Magnesium SerPl-mCncon 08-16 Magnesium [Mass/Vol] 1.8 mg/dL Normal 1.7-2.3 [facility] Comment on above: Order Comment: Speci men Type: BLOOD SPECIMENOrdering Facility: [facility] Address: [address] [place] [address] Performed By: #### 2 4321-2, 28580-3 ####[facility] LABORATORYCLIA [id number] [address] NURSING PROGon 08-16-2021 NURSING PROG Normal [facility] Basic metabolic 2000 panelon 08-15-2021 Anion gap [Moles/Vol] 13 mmol/L Normal 9-18 [facility] Comment on above: Order Comment: Speci men Type: BLOOD SPECIMENOrdering Facility: [facility] Address: [address] [place] [address] Performed By: #### 2 4321-2 ####[facility] LABORATORYCLIA [id number] [address] STATES OF [facility] Calcium [Mass/Vol] 9.0 mg/dL Normal 8.5-10.2 [facility] Comment on above: Order Comment: Speci men Type: BLOOD SPECIMENOrdering Facility: [facility] Address: [address] [place] [address] Performed By: #### 2 4321-2 ####[facility] LABORATORYCLIA [id number] [address] OF [facility] Chloride [Moles/Vol] 95 mmol/L Low 97-105 [facility] Comment on above: Order Comment: Speci men Type: BLOOD SPECIMENOrdering Facility: [facility] Address: [address] [place] [address] Performed By: #### 2 4321-2 ####[facility] LABORATORYCLIA [id number] [address] CO2 [Moles/Vol] 28 mmol/L Normal 22-30 [facility] Comment on above: Order Comment: Speci men Type: BLOOD SPECIMENOrdering Facility: [facility] Address: [address] [place] [address] Performed By: #### 2 4321-2 ####[facility] LABORATORYCLIA [id number] [address] Creatinine [Mass/Vol] 0.50 mg/dL Low 0.73-1.22 [facility] Comment on above: Order Comment: Speci men Type: BLOOD SPECIMENOrdering Facility: [facility] Address: [address] [place] [address] Performed By: #### 2 4321-2 ####[facility] LABORATORYCLIA [id number] [address] ESTIMATED GLOMERULAR FILTRATION RATE 110 mL/min/1.73m??? Normal >=60 [facility] Comment on above: Order Comment: Speci men Type: BLOOD SPECIMENOrdering Facility: [facility] Address: [address] [place] [address] Result Comment: Luzmaria mated Glomerular Filtration Rate [...] actual GFR. Performed By: #### 2 4321-2 ####[facility] LABORATORYCLIA [id number] [place] [address] [place] Glucose [Mass/Vol] 106 mg/dL High 74-99 [facility] Comment on above: Order Comment: Speci men Type: BLOOD SPECIMENOrdering Facility: [facility] Address: [address] [place] [address] Result Comment: The [place] [employer] (ADA) provides guidance for cutoff [...] Standards of Medical Care in Diabetes 2016, [place] [employer]. Diabetes Care. 2016.39(Suppl 1). Performed By: #### 2 4321-2 ####[facility] LABORATORYCLIA [id number] [place] [address] [place] Potassium [Moles/Vol] 3.3 mmol/L Low 3.7-5.1 [facility] Comment on above: Order Comment: Johni men Type: BLOOD SPECIMENOrdering Facility: [facility] Address: [address] [place] [address] Performed By: #### 2 4321-2 ####[facility] LABORATORYCLIA [id number] [place] [address] [place] Sodium [Moles/Vol] 136 mmol/L Normal 136-144 [facility] Comment on above: Order Comment: Speci men Type: BLOOD SPECIMENOrdering Facility: [facility] Address: [address] [place] [address] Performed By: #### 2 4321-2 ####[facility] LABORATORYCLIA [id number] [place] [address] [place] Urea nitrogen [Mass/Vol] 11 mg/dL Normal 9-24 [facility] Comment on above: Order Comment: Speci men Type: BLOOD SPECIMENOrdering Facility: [facility] Address: [address] [place] [address] Performed By: #### 2 4321-2 ####[facility] LABORATORYCLIA [id number] [address] [place] CASE MANAGEMon 08-15-2021 CASE MANAGEM Normal [facility] CBC W Auto Differential pane l (Bld)on 08-15-2021 Basophils (Bld) [#/Vol] 0.03 10*3/uL Normal <0.11 [facility] Comment on above: Order Comment: Speci men Type: BLOOD SPECIMENOrdering Facility: [facility] Address: [address] [place] [address] Performed By: #### 5 7021-8 ####[facility] LABORATORYCLIA [id number] [address] [place] Basophils/100 WBC (Bld) 0.4 % Normal [facility] Comment on above: Order Comment: Speci men Type: BLOOD SPECIMENOrdering Facility: [facility] Address: [address] [place] [address] Performed By: #### 5 7021-8 ####[facility] LABORATORYCLIA [id number] [address] [place] Differential cell count method Nom (Bld) Auto Normal [facility] Comment on above: Order Comment: Speci men Type: BLOOD SPECIMENOrdering Facility: [facility] Address: [address] [place] [address] Performed By: #### 5 7021-8 ####[facility] LABORATORYCLIA [id number] [place] [address] [place] Eosinophils (Bld) [#/Vol] 0.20 10*3/uL Normal <0.46 [facility] Comment on above: Order Comment: Speci men Type: BLOOD SPECIMENOrdering Facility: [facility] Address: [address] [place] [address] Performed By: #### 5 7021-8 ####[facility] LABORATORYCLIA [id number] [address] Eosinophils/100 WBC (Bld) 2.5 % Normal [facility] Comment on above: Order Comment: Speci men Type: BLOOD SPECIMENOrdering Facility: [facility] Address: [address] [place] [address] Performed By: #### 5 7021-8 ####[facility] LABORATORYCLIA [id number] [address] [place] Erythrocyte distribution width (RBC) [Ratio] 16.7 % High 11.5-15.0 [facility] Comment on above: Order Comment: Speci men Type: BLOOD SPECIMENOrdering Facility: [facility] Address: [address] [place] [address] Performed By: #### 5 7021-8 ####[facility] LABORATORYCLIA [id number] [address] Hematocrit (Bld) [Volume fraction] 30.3 % Low 39.0-51.0 [facility] Comment on above: Order Comment: Speci men Type: BLOOD SPECIMENOrdering Facility: [facility] Address: [address] [place] [address] Performed By: #### 5 7021-8 ####[facility] LABORATORYCLIA [id number] [address] [place] Hemoglobin (Bld) [Mass/Vol] 9.4 g/dL Low 13.0-17.0 [facility] Comment on above: Order Comment: Speci men Type: BLOOD SPECIMENOrdering Facility: [facility] Address: [address] [place] [address] Performed By: #### 5 7021-8 ####[facility] LABORATORYCLIA [id number] [address] [place] IMMATURE GRAN % 0.4 % Normal [facility] Comment on above: Order Comment: Speci men Type: BLOOD SPECIMENOrdering Facility: [facility] Address: [address] [place] [address] Performed By: #### 5 7021-8 ####[facility] LABORATORYCLIA [id number] [address] IMMATURE GRAN ABS 0.03 k/uL Normal <0.10 [facility] Comment on above: Order Comment: Speci men Type: BLOOD SPECIMENOrdering Facility: [facility] Address: [address] [place] [address] Performed By: #### 5 7021-8 ####[facility] LABORATORYCLIA [id number] [address] Lymphocytes (Bld) [#/Vol] 1.50 10*3/uL Normal 1.00-4.00 [facility] Comment on above: Order Comment: Speci men Type: BLOOD SPECIMENOrdering Facility: [facility] Address: [address] [place] [address] Performed By: #### 5 7021-8 ####[facility] LABORATORYCLIA [id number] [address] Lymphocytes/100 WBC (Bld) 18.5 % Normal [facility] Comment on above: Order Comment: Speci men Type: BLOOD SPECIMENOrdering Facility: [facility] Address: [address] [place] [address] Performed By: #### 5 7021-8 ####[facility] LABORATORYCLIA [id number] [address] MCH (RBC) [Entitic mass] 29.0 pg Normal 26.0-34.0 [facility] Comment on above: Order Comment: Speci men Type: BLOOD SPECIMENOrdering Facility: [facility] Address: [address] [place] [address] Performed By: #### 5 7021-8 ####[facility] LABORATORYCLIA [id number] [place] [address] [place] MCHC (RBC) [Mass/Vol] 31.0 g/dL Normal 30.5-36.0 [facility] Comment on above: Order Comment: Speci men Type: BLOOD SPECIMENOrdering Facility: [facility] Address: [address] [place] [address] Performed By: #### 5 7021-8 ####[facility] LABORATORYCLIA [id number] [place] [address] [place] MCV (RBC) [Entitic vol] 93.5 fL Normal 80.0-100.0 [facility] Comment on above: Order Comment: Speci men Type: BLOOD SPECIMENOrdering Facility: [facility] Address: [address] [place] [address] Performed By: #### 5 7021-8 ####[facility] LABORATORYCLIA [id number] [address] [place] Monocytes (Bld) [#/Vol] 0.47 10*3/uL Normal <0.87 [facility] Comment on above: Order Comment: Speci men Type: BLOOD SPECIMENOrdering Facility: [facility] Address: [address] [place] [address] Performed By: #### 5 7021-8 ####[facility] LABORATORYCLIA [id number] [address] [facility] Monocytes/100 WBC (Bld) 5.8 % Normal [facility] Comment on above: Order Comment: Speci men Type: BLOOD SPECIMENOrdering Facility: [facility] Address: [address] [place] [address] Performed By: #### 5 7021-8 ####[facility] LABORATORYCLIA [id number] [place] [address] [place] Neutrophils (Bld) [#/Vol] 5.87 10*3/uL Normal 1.45-7.50 [facility] Comment on above: Order Comment: Speci men Type: BLOOD SPECIMENOrdering Facility: [facility] Address: [address] [place] [address] Performed By: #### 5 7021-8 ####[facility] LABORATORYCLIA [id number] [address] Neutrophils/100 WBC (Bld) 72.4 % Normal [facility] Comment on above: Order Comment: Speci men Type: BLOOD SPECIMENOrdering Facility: [facility] Address: [address] [place] [address] Performed By: #### 5 7021-8 ####[facility] LABORATORYCLIA [id number] [address] OF [place] Nucleated RBC (Bld) [#/Vol] 10*3/uL Normal <0.01 [facility] Comment on above: Order Comment: Speci men Type: BLOOD SPECIMENOrdering Facility: [facility] Address: [address] [place] [address] Performed By: #### 5 7021-8 ####[facility] LABORATORYCLIA [id number] [address] Nucleated RBC/100 WBC (Bld) [Ratio] 0.0 /100 WBC Normal [facility] Comment on above: Order Comment: Speci men Type: BLOOD SPECIMENOrdering Facility: [facility] Address: [address] [place] [address] Performed By: #### 5 7021-8 ####[facility] LABORATORYCLIA [id number] [address] [place] Platelet mean volume (Bld) [Entitic vol] 9.4 fL Normal 9.0-12.7 [facility] Comment on above: Order Comment: Speci men Type: BLOOD SPECIMENOrdering Facility: [facility] Address: [address] [place] [address] Performed By: #### 5 7021-8 ####[facility]ATORYCLIA [id number] [address] [place] Platelets (Bld) [#/Vol] 290 10*3/uL Normal 150-400 [facility] Comment on above: Order Comment: Speci men Type: BLOOD SPECIMENOrdering Facility: [facility] Address: [address] [place] [address] Performed By: #### 5 7021-8 ####[facility] LABORATORYCLIA [id number] [address] OF [facility] RBC (Bld) [#/Vol] 3.24 10*6/uL Low 4.20-6.00 [facility] Comment on above: Order Comment: Speci men Type: BLOOD SPECIMENOrdering Facility: [facility] Address: [address] [place] [address] Performed By: #### 5 7021-8 ####[facility] LABORATORYCLIA [id number] [address] STATES OF [facility] WBC (Bld) [#/Vol] 8.10 10*3/uL Normal 3.70-11.00 [facility] Comment on above: Order Comment: Speci men Type: BLOOD SPECIMENOrdering Facility: [facility] Address: [address] [place] [address] Performed By: #### 5 7021-8 ####[facility] LABORATORYCLIA [id number] [address] OF [facility] THERAPY NTon 08-15-2021 THERAPY NT Normal [facility] THERAPY NT Normal [facility] THERAPY NT Normal [facility] Basic metabolic 2000 panelon 08-14-2021 Anion gap [Moles/Vol] 10 mmol/L Normal 9-18 [facility] Comment on above: Order Comment: Speci men Type: BLOOD SPECIMENOrdering Facility: [facility] Address: [address] [place] [address] Performed By: #### 2 4321-2 ####[facility] LABORATORYCLIA [id number] [address] Calcium [Mass/Vol] 8.8 mg/dL Normal 8.5-10.2 [facility] Comment on above: Order Comment: Speci men Type: BLOOD SPECIMENOrdering Facility: [facility] Address: [address] [place] [address] Performed By: #### 2 4321-2 ####[facility] LABORATORYCLIA [id number] [place] [address] [place] Chloride [Moles/Vol] 92 mmol/L Low 97-105 [facility] Comment on above: Order Comment: Speci men Type: BLOOD SPECIMENOrdering Facility: [facility] Address: [address] [place] [address] Performed By: #### 2 4321-2 ####[facility] LABORATORYCLIA [id number] [place] [address] [place] CO2 [Moles/Vol] 29 mmol/L Normal 22-30 [facility] Comment on above: Order Comment: Speci men Type: BLOOD SPECIMENOrdering Facility: [facility] Address: [address] [place] [address] Performed By: #### 2 4321-2 ####[facility] LABORATORYCLIA [id number] [address] STATES OF [facility] Creatinine [Mass/Vol] 0.49 mg/dL Low 0.73-1.22 [facility] Comment on above: Order Comment: Speci men Type: BLOOD SPECIMENOrdering Facility: [facility] Address: [address] [place] [address] Performed By: #### 2 4321-2 ####[facility] LABORATORYCLIA [id number] [address] OF [facility] ESTIMATED GLOMERULAR FILTRATION RATE 111 mL/min/1.73m??? Normal >=60 [facility] Comment on above: Order Comment: Speci men Type: BLOOD SPECIMENOrdering Facility: [facility] Address: [address] [place] [address] Result Comment: Luzmaria mated Glomerular Filtration Rate [...] actual GFR. Performed By: #### 2 4321-2 ####[facility] LABORATORYCLIA [id number] [place] [address] [place] Glucose [Mass/Vol] 104 mg/dL High 74-99 [facility] Comment on above: Order Comment: Shira feldman Type: BLOOD SPECIMENOrdering Facility: [facility] Address: [address] [place] [address] Result Comment: The [place] Diabetes [employer] (ADA) provides guidance for cutoff [...] Standards of Medical Care in Diabetes 2016, [place] [employer]. Diabetes Care. 2016.39(Suppl 1). Performed By: #### 2 4321-2 ####[facility] LABORATORYCLIA [id number] [place] [address] [place] Potassium [Moles/Vol] 3.1 mmol/L Low 3.7-5.1 [facility] Comment on above: Order Comment: Shira feldman Type: BLOOD SPECIMENOrdering Facility: [facility] Address: [address] [address] Performed By: #### 2 4321-2 ####[facility] LABORATORYCLIA [id number] [place] [address] [place] Sodium [Moles/Vol] 131 mmol/L Low 136-144 [facility] Comment on above: Order Comment: Shira feldman Type: BLOOD SPECIMENOrdering Facility: [facility] Address: [address] [address] Performed By: #### 2 4321-2 ####[facility] LABORATORYCLIA [id number] [address] [place] Urea nitrogen [Mass/Vol] 13 mg/dL Normal 9-24 [facility] Comment on above: Order Comment: Speci men Type: BLOOD SPECIMENOrdering Facility: [facility] Address: [address] [place] [address] Performed By: #### 2 4321-2 ####[facility] LABORATORYCLIA [id number] [address] [place] CBC W Auto Differential pane l (Bld)on 08-14-2021 Basophils (Bld) [#/Vol] 10*3/uL Normal <0.11 [facility] Comment on above: Order Comment: Speci men Type: BLOOD SPECIMENOrdering Facility: [facility] Address: [address] [place] [address] Performed By: #### 5 7021-8 ####[facility] LABORATORYCLIA [id number] [address] [place] Basophils/100 WBC (Bld) 0.2 % Normal [facility] Comment on above: Order Comment: Speci men Type: BLOOD SPECIMENOrdering Facility: [facility] Address: [address] [place] [address] Performed By: #### 5 7021-8 ####[facility] LABORATORYCLIA [id number] [address] Differential cell count method Nom (Bld) Auto Normal [facility] Comment on above: Order Comment: Speci men Type: BLOOD SPECIMENOrdering Facility: [facility] Address: [address] [place] [address] Performed By: #### 5 7021-8 ####[facility] LABORATORYCLIA [id number] [address] [place] Eosinophils (Bld) [#/Vol] 0.23 10*3/uL Normal <0.46 [facility] Comment on above: Order Comment: Speci men Type: BLOOD SPECIMENOrdering Facility: [facility] Address: [address] [place] [address] Performed By: #### 5 7021-8 ####[facility] LABORATORYCLIA [id number] [address] Eosinophils/100 WBC (Bld) 2.7 % Normal [facility] Comment on above: Order Comment: Speci men Type: BLOOD SPECIMENOrdering Facility: [facility] Address: [address] [place] [address] Performed By: #### 5 7021-8 ####[facility] LABORATORYCLIA [id number] [address] Erythrocyte distribution width (RBC) [Ratio] 16.6 % High 11.5-15.0 [facility] Comment on above: Order Comment: Speci men Type: BLOOD SPECIMENOrdering Facility: [facility] Address: [address] [place] [address] Performed By: #### 5 7021-8 ####[facility] LABORATORYCLIA [id number] [address] Hematocrit (Bld) [Volume fraction] 28.6 % Low 39.0-51.0 [facility] Comment on above: Order Comment: Speci men Type: BLOOD SPECIMENOrdering Facility: [facility] Address: [address] [place] [address] Performed By: #### 5 7021-8 ####[facility] LABORATORYCLIA [id number] [address] Hemoglobin (Bld) [Mass/Vol] 9.0 g/dL Low 13.0-17.0 [facility] Comment on above: Order Comment: Speci men Type: BLOOD SPECIMENOrdering Facility: [facility] Address: [address] [place] [address] Performed By: #### 5 7021-8 ####[facility] LABORATORYCLIA [id number] [address] [place] IMMATURE GRAN % 0.2 % Normal [facility] Comment on above: Order Comment: Speci men Type: BLOOD SPECIMENOrdering Facility: [facility] Address: [address] [place] [address] Performed By: #### 5 7021-8 ####[facility] LABORATORYCLIA [id number] [address] [facility] IMMATURE GRAN ABS <0.03 Normal <0.10 [facility] Comment on above: Order Comment: Speci men Type: BLOOD SPECIMENOrdering Facility: [facility] Address: [address] [place] [address] Performed By: #### 5 7021-8 ####[facility] LABORATORYCLIA [id number] [address] Lymphocytes (Bld) [#/Vol] 1.33 10*3/uL Normal 1.00-4.00 [facility] Comment on above: Order Comment: Speci men Type: BLOOD SPECIMENOrdering Facility: [facility] Address: [address] [place] [address] Performed By: #### 5 7021-8 ####[facility] LABORATORYCLIA [id number] [address] Lymphocytes/100 WBC (Bld) 15.6 % Normal [facility] Comment on above: Order Comment: Speci men Type: BLOOD SPECIMENOrdering Facility: [facility] Address: [address] [place] [address] Performed By: #### 5 7021-8 ####[facility] LABORATORYCLIA [id number] [address] [facility] MCH (RBC) [Entitic mass] 29.0 pg Normal 26.0-34.0 [facility] Comment on above: Order Comment: Speci men Type: BLOOD SPECIMENOrdering Facility: [facility] Address: [address] [place] [address] Performed By: #### 5 7021-8 ####[facility] LABORATORYCLIA [id number] [address] MCHC (RBC) [Mass/Vol] 31.5 g/dL Normal 30.5-36.0 [facility] Comment on above: Order Comment: Speci men Type: BLOOD SPECIMENOrdering Facility: [facility] Address: [address] [place] [address] Performed By: #### 5 7021-8 ####[facility] LABORATORYCLIA [id number] [address] [place] MCV (RBC) [Entitic vol] 92.3 fL Normal 80.0-100.0 [facility] Comment on above: Order Comment: Speci men Type: BLOOD SPECIMENOrdering Facility: [facility] Address: [address] [place] [address] Performed By: #### 5 7021-8 ####[facility] LABORATORYCLIA [id number] [address] [place] Monocytes (Bld) [#/Vol] 0.44 10*3/uL Normal <0.87 [facility] Comment on above: Order Comment: Speci men Type: BLOOD SPECIMENOrdering Facility: [facility] Address: [address] [place] [address] Performed By: #### 5 7021-8 ####[facility] LABORATORYCLIA [id number] [address] Monocytes/100 WBC (Bld) 5.2 % Normal [facility] Comment on above: Order Comment: Speci men Type: BLOOD SPECIMENOrdering Facility: [facility] Address: [address] [place] [address] Performed By: #### 5 7021-8 ####[facility] LABORATORYCLIA [id number] [address] [place] Neutrophils (Bld) [#/Vol] 6.46 10*3/uL Normal 1.45-7.50 [facility] Comment on above: Order Comment: Speci men Type: BLOOD SPECIMENOrdering Facility: [facility] Address: [address] [place] [address] Performed By: #### 5 7021-8 ####[facility]ATORYCLIA [id number] [address] Neutrophils/100 WBC (Bld) 76.1 % Normal [facility] Comment on above: Order Comment: Speci men Type: BLOOD SPECIMENOrdering Facility: [facility] Address: [address] [place] [address] Performed By: #### 5 7021-8 ####[facility]ORATORYCLIA [id number] [address] [place] Nucleated RBC (Bld) [#/Vol] 10*3/uL Normal <0.01 [facility] Comment on above: Order Comment: Speci men Type: BLOOD SPECIMENOrdering Facility: [facility] Address: [address] [place] [address] Performed By: #### 5 7021-8 ####[facility] LABORATORYCLIA [id number] [address] Nucleated RBC/100 WBC (Bld) [Ratio] 0.0 /100 WBC Normal [facility] Comment on above: Order Comment: Speci men Type: BLOOD SPECIMENOrdering Facility: [facility] Address: [address] [place] [address] Performed By: #### 5 7021-8 ####[facility] LABORATORYCLIA [id number] [address] [place] Platelet mean volume (Bld) [Entitic vol] 9.5 fL Normal 9.0-12.7 [facility] Comment on above: Order Comment: Speci men Type: BLOOD SPECIMENOrdering Facility: [facility] Address: [address] [place] [address] Performed By: #### 5 7021-8 ####[facility]ATORYCLIA [id number] [address] [place] Platelets (Bld) [#/Vol] 247 10*3/uL Normal 150-400 [facility] Comment on above: Order Comment: Speci men Type: BLOOD SPECIMENOrdering Facility: [facility] Address: [address] [place] [address] Performed By: #### 5 7021-8 ####[facility] LABORATORYCLIA [id number] [address] [place] RBC (Bld) [#/Vol] 3.10 10*6/uL Low 4.20-6.00 [facility] Comment on above: Order Comment: Speci men Type: BLOOD SPECIMENOrdering Facility: [facility] Address: [address] [place] [address] Performed By: #### 5 7021-8 ####[facility] LABORATORYCLIA [id number] [address] OF [facility] WBC (Bld) [#/Vol] 8.50 10*3/uL Normal 3.70-11.00 [facility] Comment on above: Order Comment: Speci men Type: BLOOD SPECIMENOrdering Facility: [facility] Address: [address] [place] [address] Performed By: #### 5 7021-8 ####[facility] LABORATORYCLIA [id number] [address] [place] CONSULTon 08-14-2021 CONSULT Normal [facility] NURSING PROGon 08-14-2021 NURSING PROG Normal [facility] CBC W Auto Differential pane l (Bld)on 08-13-2021 Basophils (Bld) [#/Vol] 10*3/uL Normal <0.11 [facility] Comment on above: Order Comment: Speci men Type: BLOOD SPECIMENOrdering Facility: [facility] Address: [address] [place] [address] Performed By: #### 5 7021-8 ####[facility] LABORATORYCLIA [id number] [address] STATES OF [facility] Basophils/100 WBC (Bld) 0.2 % Normal [facility] Comment on above: Order Comment: Speci men Type: BLOOD SPECIMENOrdering Facility: [facility] Address: [address] [address] Performed By: #### 5 7021-8 ####[facility]ORATORYCLIA [id number] [address] Differential cell count method Nom (Bld) Auto Normal [facility] Comment on above: Order Comment: Speci men Type: BLOOD SPECIMENOrdering Facility: [facility] Address: [address] [place] [address] Performed By: #### 5 7021-8 ####[facility] LABORATORYCLIA [id number] [address] Eosinophils (Bld) [#/Vol] 0.31 10*3/uL Normal <0.46 [facility] Comment on above: Order Comment: Speci men Type: BLOOD SPECIMENOrdering Facility: [facility] Address: [address] [place] [address] Performed By: #### 5 7021-8 ####[facility] LABORATORYCLIA [id number] [address] Eosinophils/100 WBC (Bld) 3.7 % Normal [facility] Comment on above: Order Comment: Speci men Type: BLOOD SPECIMENOrdering Facility: [facility] Address: [address] [place] [address] Performed By: #### 5 7021-8 ####[facility] LABORATORYCLIA [id number] [address] Erythrocyte distribution width (RBC) [Ratio] 16.6 % High 11.5-15.0 [facility] Comment on above: Order Comment: Speci men Type: BLOOD SPECIMENOrdering Facility: [facility] Address: [address] [place] [address] Performed By: #### 5 7021-8 ####[facility] LABORATORYCLIA [id number] [address] [place] Hematocrit (Bld) [Volume fraction] 27.5 % Low 39.0-51.0 [facility] Comment on above: Order Comment: Speci men Type: BLOOD SPECIMENOrdering Facility: [facility] Address: [address] [place] [address] Performed By: #### 5 7021-8 ####[facility] LABORATORYCLIA [id number] [address] OF [facility] Hemoglobin (Bld) [Mass/Vol] 8.4 g/dL Low 13.0-17.0 [facility] Comment on above: Order Comment: Speci men Type: BLOOD SPECIMENOrdering Facility: [facility] Address: [address] [place] [address] Performed By: #### 5 7021-8 ####[facility] LABORATORYCLIA [id number] [address] IMMATURE GRAN % 0.5 % Normal [facility] Comment on above: Order Comment: Speci men Type: BLOOD SPECIMENOrdering Facility: [facility] Address: [address] [place] [address] Performed By: #### 5 7021-8 ####[facility] LABORATORYCLIA [id number] [address] IMMATURE GRAN ABS 0.04 k/uL Normal <0.10 [facility] Comment on above: Order Comment: Speci men Type: BLOOD SPECIMENOrdering Facility: [facility] Address: [address] [place] [address] Performed By: #### 5 7021-8 ####[facility] LABORATORYCLIA [id number] [address] OF [place] Lymphocytes (Bld) [#/Vol] 1.55 10*3/uL Normal 1.00-4.00 [facility] Comment on above: Order Comment: Speci men Type: BLOOD SPECIMENOrdering Facility: [facility] Address: [address] [place] [address] Performed By: #### 5 7021-8 ####[facility] LABORATORYCLIA [id number] [place] [address] Lymphocytes/100 WBC (Bld) 18.7 % Normal [facility] Comment on above: Order Comment: Speci men Type: BLOOD SPECIMENOrdering Facility: [facility] Address: [address] [place] [address] Performed By: #### 5 7021-8 ####[facility] LABORATORYCLIA [id number] [address] MCH (RBC) [Entitic mass] 28.9 pg Normal 26.0-34.0 [facility] Comment on above: Order Comment: Speci men Type: BLOOD SPECIMENOrdering Facility: [facility] Address: [address] [place] [address] Performed By: #### 5 7021-8 ####[facility] LABORATORYCLIA [id number] [address] OF [facility] MCHC (RBC) [Mass/Vol] 30.5 g/dL Normal 30.5-36.0 [facility] Comment on above: Order Comment: Speci men Type: BLOOD SPECIMENOrdering Facility: [facility] Address: [address] [place] [address] Performed By: #### 5 7021-8 ####[facility] LABORATORYCLIA [id number] [address] MCV (RBC) [Entitic vol] 94.5 fL Normal 80.0-100.0 [facility] Comment on above: Order Comment: Speci men Type: BLOOD SPECIMENOrdering Facility: [facility] Address: [address] [place] [address] Performed By: #### 5 7021-8 ####[facility] LABORATORYCLIA [id number] [address] Monocytes (Bld) [#/Vol] 0.47 10*3/uL Normal <0.87 [facility] Comment on above: Order Comment: Speci men Type: BLOOD SPECIMENOrdering Facility: [facility] Address: [address] [place] [address] Performed By: #### 5 7021-8 ####[facility]ATORYCLIA [id number] [address] [place] Monocytes/100 WBC (Bld) 5.7 % Normal [facility] Comment on above: Order Comment: Speci men Type: BLOOD SPECIMENOrdering Facility: [facility] Address: [address] [place] [address] Performed By: #### 5 7021-8 ####[facility]ORATORYCLIA [id number] [place] [address] [place] Neutrophils (Bld) [#/Vol] 5.92 10*3/uL Normal 1.45-7.50 [facility] Comment on above: Order Comment: Speci men Type: BLOOD SPECIMENOrdering Facility: [facility] Address: [address] [place] [address] Performed By: #### 5 7021-8 ####[facility] LABORATORYCLIA [id number] [address] Neutrophils/100 WBC (Bld) 71.2 % Normal [facility] Comment on above: Order Comment: Speci men Type: BLOOD SPECIMENOrdering Facility: [facility] Address: [address] [place] [address] Performed By: #### 5 7021-8 ####[facility] LABORATORYCLIA [id number] [address] [place] Nucleated RBC (Bld) [#/Vol] 10*3/uL Normal <0.01 [facility] Comment on above: Order Comment: Speci men Type: BLOOD SPECIMENOrdering Facility: [facility] Address: [address] [place] [address] Performed By: #### 5 7021-8 ####[facility]ORATORYCLIA [id number] [address] [place] Nucleated RBC/100 WBC (Bld) [Ratio] 0.0 /100 WBC Normal [facility] Comment on above: Order Comment: Speci men Type: BLOOD SPECIMENOrdering Facility: [facility] Address: [address] [place] [address] Performed By: #### 5 7021-8 ####[facility] LABORATORYCLIA [id number] [address] Platelet mean volume (Bld) [Entitic vol] 9.9 fL Normal 9.0-12.7 [facility] Comment on above: Order Comment: Speci men Type: BLOOD SPECIMENOrdering Facility: [facility] Address: [address] [place] [address] Performed By: #### 5 7021-8 ####[facility] LABORATORYCLIA [id number] [address] [place] Platelets (Bld) [#/Vol] 203 10*3/uL Normal 150-400 [facility] Comment on above: Order Comment: Speci men Type: BLOOD SPECIMENOrdering Facility: [facility] Address: [address] [place] [address] Performed By: #### 5 7021-8 ####[facility] LABORATORYCLIA [id number] [address] [place] RBC (Bld) [#/Vol] 2.91 10*6/uL Low 4.20-6.00 [facility] Comment on above: Order Comment: Speci men Type: BLOOD SPECIMENOrdering Facility: [facility] Address: [address] [place], [place] [address] Performed By: #### 5 7021-8 ####[facility] LABORATORYCLIA [id number] [address] [place] WBC (Bld) [#/Vol] 8.31 10*3/uL Normal 3.70-11.00 [facility] Comment on above: Order Comment: Speci men Type: BLOOD SPECIMENOrdering Facility: [facility] Address: [address] [place] [address] Performed By: #### 5 7021-8 ####[facility] LABORATORYCLIA [id number] [place] [address] [place] aPTT PPPon 08-13-2021 aPTT Coag (PPP) [Time] 69.7 s High 23.0-32.4 [facility] Comment on above: Order Comment: Speci men Type: BLOOD SPECIMENOrdering Facility: [facility] Address: [address] [place] [address] Performed By: #### 1 4979-9 ####[facility] LABORATORYCLIA [id number] [address] [place] aPTT Coag (PPP) [Time] 70.6 s High 23.0-32.4 [facility] Comment on above: Order Comment: Speci men Type: BLOOD SPECIMENOrdering Facility: [facility] Address: [address] [place] [address] Performed By: #### 1 4979-9 ####[facility] LABORATORYCLIA [id number] [place] [address] [place] ALLIED HEALTHon 08-12-2021 ALLIED HEALTH Normal [facility] ALLIED HEALTH Normal [facility] Basic metabolic 2000 panelon 08-12-2021 Anion gap [Moles/Vol] 7 mmol/L Low 9-18 [facility] Comment on above: Order Comment: Speci men Type: BLOOD SPECIMENOrdering Facility: [facility] Address: [address] [place] [address] Performed By: #### 2 4321-2, , 2776-05 ####[facility] LABORATORYCLIA [id number] [address] STATES OF [facility] Calcium [Mass/Vol] 8.8 mg/dL Normal 8.5-10.2 [facility] Comment on above: Order Comment: Speci men Type: BLOOD SPECIMENOrdering Facility: [facility] Address: [address] [place] [address] Performed By: #### 2 4321-2, , 2776-05 ####[facility] LABORATORYCLIA [id number] [place], [place] [address] [place] [address] [place] Chloride [Moles/Vol] 96 mmol/L Low 97-105 [facility] Comment on above: Order Comment: Speci men Type: BLOOD SPECIMENOrdering Facility: [facility] Address: [address] [place] [address] Performed By: #### 2 4321-2, 07537-4, 2776- ####[facility] LABORATORYCLIA [id number] [address] STATES OF [facility] CO2 [Moles/Vol] 32 mmol/L High 22-30 [facility] Comment on above: Order Comment: Speci men Type: BLOOD SPECIMENOrdering Facility: [facility] Address: [address] [place] [address] Performed By: #### 2 4321-2, , 2776-05 ####[facility] LABORATORYCLIA [id number] [address] OF [facility] Creatinine [Mass/Vol] 0.52 mg/dL Low 0.73-1.22 [facility] Comment on above: Order Comment: Speci men Type: BLOOD SPECIMENOrdering Facility: [facility] Address: [address] [place] [address] Performed By: #### 2 4321-2, , 2776-05 ####[facility] LABORATORYCLIA [id number] [address] ESTIMATED GLOMERULAR FILTRATION RATE 109 mL/min/1.73m??? Normal >=60 [facility] Comment on above: Order Comment: Speci men Type: BLOOD SPECIMENOrdering Facility: [facility] Address: [address] [place] [address] Result Comment: Luzmaria mated Glomerular Filtration Rate [...] Performed By: #### 2 4321-2, , 2776-05 ####[facility] LABORATORYCLIA [id number] [place] [address] [place] Glucose [Mass/Vol] 119 mg/dL High 74-99 [facility] Comment on above: Order Comment: Speci men Type: BLOOD SPECIMENOrdering Facility: [facility] Address: [address] [place], [place] [id number] Result Comment: The [place] Diabetes [employer] (ADA) provides guidance for cutoff [...] Standards of Medical Care in Diabetes 2016, [place] [employer]. Diabetes Care. 2016.39(Suppl 1). Performed By: #### 2 4321-2, , 2776-05 ####[facility] LABORATORYCLIA [id number] [place] [address] [place] Potassium [Moles/Vol] 3.7 mmol/L Normal 3.7-5.1 [facility] Comment on above: Order Comment: Speci men Type: BLOOD SPECIMENOrdering Facility: [facility] Address: [address] [id number] Performed By: #### 2 4321-2, , 2776-05 ####[facility] LABORATORYIA [id number] [place] [address] [place] Sodium [Moles/Vol] 135 mmol/L Low 136-144 [facility] Comment on above: Order Comment: Shira francia Type: BLOOD SPECIMENOrdering Facility: [facility] Address: [address] [id number] Performed By: #### 2 4321-2, 82524-1, 277-1 ####[facility] LABORATORYCLIA [id number] [address] [facility] Urea nitrogen [Mass/Vol] 20 mg/dL Normal 9-24 [facility] Comment on above: Order Comment: Speci men Type: BLOOD SPECIMENOrdering Facility: [facility] Address: [address] [place] [address] Performed By: #### 2 4321-2, , 2776-05 ####[facility] LABORATORYCLIA [id number] [address] OF [facility] CASE MANAGEMon 08-12-2021 CASE MANAGEM Normal [facility] CBC W Auto Differential pane l (Bld)on 08-12-2021 Basophils (Bld) [#/Vol] 0.04 10*3/uL Normal <0.11 [facility] Comment on above: Order Comment: Speci men Type: BLOOD SPECIMENOrdering Facility: [facility] Address: [address] [place] [address] Performed By: #### 5 7021-8 ####[facility] LABORATORYCLIA [id number] [address] Basophils/100 WBC (Bld) 0.5 % Normal [facility] Comment on above: Order Comment: Speci men Type: BLOOD SPECIMENOrdering Facility: [facility] Address: [address] [place] [address] Performed By: #### 5 7021-8 ####[facility] LABORATORYCLIA [id number] [address] [place] Differential cell count method Nom (Bld) Auto Normal [facility] Comment on above: Order Comment: Speci men Type: BLOOD SPECIMENOrdering Facility: [facility] Address: [address] [place] [address] Performed By: #### 5 7021-8 ####[facility] LABORATORYCLIA [id number] [address] [place] Eosinophils (Bld) [#/Vol] 0.19 10*3/uL Normal <0.46 [facility] Comment on above: Order Comment: Speci men Type: BLOOD SPECIMENOrdering Facility: [facility] Address: [address] [place] [address] Performed By: #### 5 7021-8 ####[facility] LABORATORYCLIA [id number] [address] [place] Eosinophils/100 WBC (Bld) 2.3 % Normal [facility] Comment on above: Order Comment: Speci men Type: BLOOD SPECIMENOrdering Facility: [facility] Address: [address] [place] [address] Performed By: #### 5 7021-8 ####[facility] LABORATORYCLIA [id number] [address] Erythrocyte distribution width (RBC) [Ratio] 17.1 % High 11.5-15.0 [facility] Comment on above: Order Comment: Speci men Type: BLOOD SPECIMENOrdering Facility: [facility] Address: [address] [place] [address] Performed By: #### 5 7021-8 ####[facility] LABORATORYCLIA [id number] [address] [place] Hematocrit (Bld) [Volume fraction] 25.3 % Low 39.0-51.0 [facility] Comment on above: Order Comment: Speci men Type: BLOOD SPECIMENOrdering Facility: [facility] Address: [address] [place] [address] Performed By: #### 5 7021-8 ####[facility] LABORATORYCLIA [id number] [address] [place] Hemoglobin (Bld) [Mass/Vol] 7.9 g/dL Low 13.0-17.0 [facility] Comment on above: Order Comment: Speci men Type: BLOOD SPECIMENOrdering Facility: [facility] Address: [address] [place] [address] Performed By: #### 5 7021-8 ####[facility] LABORATORYCLIA [id number] [address] IMMATURE GRAN % 0.5 % Normal [facility] Comment on above: Order Comment: Speci men Type: BLOOD SPECIMENOrdering Facility: [facility] Address: [address] [place] [address] Performed By: #### 5 7021-8 ####[facility] LABORATORYCLIA [id number] [address] IMMATURE GRAN ABS 0.04 k/uL Normal <0.10 [facility] Comment on above: Order Comment: Speci men Type: BLOOD SPECIMENOrdering Facility: [facility] Address: [address] [place] [address] Performed By: #### 5 7021-8 ####[facility] LABORATORYCLIA [id number] [address] Lymphocytes (Bld) [#/Vol] 1.69 10*3/uL Normal 1.00-4.00 [facility] Comment on above: Order Comment: Speci men Type: BLOOD SPECIMENOrdering Facility: [facility] Address: [address] [place] [address] Performed By: #### 5 7021-8 ####[facility] LABORATORYCLIA [id number] [address] Lymphocytes/100 WBC (Bld) 20.1 % Normal [facility] Comment on above: Order Comment: Speci men Type: BLOOD SPECIMENOrdering Facility: [facility] Address: [address] [place] [address] Performed By: #### 5 7021-8 ####[facility] LABORATORYCLIA [id number] [address] MCH (RBC) [Entitic mass] 28.5 pg Normal 26.0-34.0 [facility] Comment on above: Order Comment: Speci men Type: BLOOD SPECIMENOrdering Facility: [facility] Address: [address] [place] [address] Performed By: #### 5 7021-8 ####[facility] LABORATORYCLIA [id number] [address] [facility] MCHC (RBC) [Mass/Vol] 31.2 g/dL Normal 30.5-36.0 [facility] Comment on above: Order Comment: Speci men Type: BLOOD SPECIMENOrdering Facility: [facility] Address: [address] [place] [address] Performed By: #### 5 7021-8 ####[facility] LABORATORYCLIA [id number] [address] OF [facility] MCV (RBC) [Entitic vol] 91.3 fL Normal 80.0-100.0 [facility] Comment on above: Order Comment: Speci men Type: BLOOD SPECIMENOrdering Facility: [facility] Address: [address] [place] [address] Performed By: #### 5 7021-8 ####[facility] LABORATORYCLIA [id number] [address] STATES OF [facility] Monocytes (Bld) [#/Vol] 0.53 10*3/uL Normal <0.87 [facility] Comment on above: Order Comment: Speci men Type: BLOOD SPECIMENOrdering Facility: [facility] Address: [address] [place] [address] Performed By: #### 5 7021-8 ####[facility] LABORATORYCLIA [id number] [address] Monocytes/100 WBC (Bld) 6.3 % Normal [facility] Comment on above: Order Comment: Speci men Type: BLOOD SPECIMENOrdering Facility: [facility] Address: [address] [place] [address] Performed By: #### 5 7021-8 ####[facility] LABORATORYCLIA [id number] [address] [place] Neutrophils (Bld) [#/Vol] 5.90 10*3/uL Normal 1.45-7.50 [facility] Comment on above: Order Comment: Speci men Type: BLOOD SPECIMENOrdering Facility: [facility] Address: [address] [place] [address] Performed By: #### 5 7021-8 ####[facility] LABORATORYCLIA [id number] [address] Neutrophils/100 WBC (Bld) 70.3 % Normal [facility] Comment on above: Order Comment: Speci men Type: BLOOD SPECIMENOrdering Facility: [facility] Address: [address] [place] [address] Performed By: #### 5 7021-8 ####[facility] LABORATORYCLIA [id number] [address] [place] Nucleated RBC (Bld) [#/Vol] 10*3/uL Normal <0.01 [facility] Comment on above: Order Comment: Speci men Type: BLOOD SPECIMENOrdering Facility: [facility] Address: [address] [place] [address] Performed By: #### 5 7021-8 ####[facility] LABORATORYCLIA [id number] [address] Nucleated RBC/100 WBC (Bld) [Ratio] 0.0 /100 WBC Normal [facility] Comment on above: Order Comment: Speci men Type: BLOOD SPECIMENOrdering Facility: [facility] Address: [address] [place] [address] Performed By: #### 5 7021-8 ####[facility] LABORATORYCLIA [id number] [address] [place] Platelet mean volume (Bld) [Entitic vol] 9.8 fL Normal 9.0-12.7 [facility] Comment on above: Order Comment: Speci men Type: BLOOD SPECIMENOrdering Facility: [facility] Address: [address] [place] [address] Performed By: #### 5 7021-8 ####[facility] LABORATORYCLIA [id number] [address] [place] Platelets (Bld) [#/Vol] 164 10*3/uL Normal 150-400 [facility] Comment on above: Order Comment: Speci men Type: BLOOD SPECIMENOrdering Facility: [facility] Address: [address] [place] [address] Performed By: #### 5 7021-8 ####[facility] LABORATORYCLIA [id number] [place] [address] [place] RBC (Bld) [#/Vol] 2.77 10*6/uL Low 4.20-6.00 [facility] Comment on above: Order Comment: Speci men Type: BLOOD SPECIMENOrdering Facility: [facility] Address: [address] [place] [address] Performed By: #### 5 7021-8 ####[facility] LABORATORYCLIA [id number] [address] OF [facility] WBC (Bld) [#/Vol] 8.39 10*3/uL Normal 3.70-11.00 [facility] Comment on above: Order Comment: Speci men Type: BLOOD SPECIMENOrdering Facility: [facility] Address: [address] [place] [address] Performed By: #### 5 7021-8 ####[facility] LABORATORYCLIA [id number] [address] [place] CT BRAIN WO IVCONon 08-13-19 CT BRAIN WO IVCON Normal [facility] CT BRAIN WO IVCON Normal [facility] Magnesium SerPl-mCncon 08-12 Magnesium [Mass/Vol] 2.0 mg/dL Normal 1.7-2.3 [facility] Comment on above: Order Comment: Speci men Type: BLOOD SPECIMENOrdering Facility: [facility] Address: [address] [place] [address] Performed By: #### 2 4321-2, 19272-6, 2777-1 ####[facility] LABORATORYCLIA [id number] [address] Phosphate SerPl-mCncon 08-12 Phosphate [Mass/Vol] 2.9 mg/dL Normal 2.7-4.8 [facility] Comment on above: Order Comment: Speci men Type: BLOOD SPECIMENOrdering Facility: [facility] Address: [address] [place] [address] Performed By: #### 2 4321-2, 15944-4, 2777-1 ####[facility] LABORATORYCLIA [id number] [address] THERAPY NTon 08-12-2021 THERAPY NT Normal [facility] THERAPY NT Normal [facility] aPTT PPPon 08-12-2021 aPTT Coag (PPP) [Time] 94.2 s High 23.0-32.4 [facility] Comment on above: Order Comment: Speci men Type: BLOOD SPECIMENOrdering Facility: [facility] Address: [address] [place] [address] Performed By: #### 1 4979-9 ####[facility] LABORATORYCLIA [id number] [address] aPTT Coag (PPP) [Time] 84.4 s High 23.0-32.4 [facility] Comment on above: Order Comment: Speci men Type: BLOOD SPECIMENOrdering Facility: [facility] Address: [address] [place] [address] Performed By: #### 1 4979-9 ####[facility] LABORATORYCLIA [id number] [address] aPTT Coag (PPP) [Time] 71.3 s High 23.0-32.4 [facility] Comment on above: Order Comment: Speci men Type: BLOOD SPECIMENOrdering Facility: [facility] Address: [address] [place] [address] Performed By: #### 1 4979-9 ####[facility] LABORATORYCLIA [id number] [place] [address] [place] ALLIED HEALTHon 08-11-2021 ALLIED HEALTH Normal [facility] CBC W Auto Differential pane l (Bld)on 08-11-2021 Basophils (Bld) [#/Vol] 10*3/uL Normal <0.11 [facility] Comment on above: Order Comment: Speci men Type: BLOOD SPECIMENOrdering Facility: [facility] Address: [address] [place] [address] Performed By: #### 5 7021-8 ####[facility] LABORATORYCLIA [id number] [address] [place] Basophils/100 WBC (Bld) 0.2 % Normal [facility] Comment on above: Order Comment: Speci men Type: BLOOD SPECIMENOrdering Facility: [facility] Address: [address] [place] [address] Performed By: #### 5 7021-8 ####[facility] LABORATORYCLIA [id number] [address] [place] Differential cell count method Nom (Bld) Auto Normal [facility] Comment on above: Order Comment: Speci men Type: BLOOD SPECIMENOrdering Facility: [facility] Address: [address] [place] [address] Performed By: #### 5 7021-8 ####[facility] LABORATORYCLIA [id number] [place] [address] [place] Eosinophils (Bld) [#/Vol] 0.16 10*3/uL Normal <0.46 [facility] Comment on above: Order Comment: Speci men Type: BLOOD SPECIMENOrdering Facility: [facility] Address: [address] [place] [address] Performed By: #### 5 7021-8 ####[facility] LABORATORYCLIA [id number] [address] [place] Eosinophils/100 WBC (Bld) 1.8 % Normal [facility] Comment on above: Order Comment: Speci men Type: BLOOD SPECIMENOrdering Facility: [facility] Address: [address] [place] [address] Performed By: #### 5 7021-8 ####[facility] LABORATORYCLIA [id number] [address] Erythrocyte distribution width (RBC) [Ratio] 17.3 % High 11.5-15.0 [facility] Comment on above: Order Comment: Speci men Type: BLOOD SPECIMENOrdering Facility: [facility] Address: [address] [place] [address] Performed By: #### 5 7021-8 ####[facility] LABORATORYCLIA [id number] [address] Hematocrit (Bld) [Volume fraction] 26.6 % Low 39.0-51.0 [facility] Comment on above: Order Comment: Speci men Type: BLOOD SPECIMENOrdering Facility: [facility] Address: [address] [place] [address] Performed By: #### 5 7021-8 ####[facility] LABORATORYCLIA [id number] [address] Hemoglobin (Bld) [Mass/Vol] 8.2 g/dL Low 13.0-17.0 [facility] Comment on above: Order Comment: Speci men Type: BLOOD SPECIMENOrdering Facility: [facility] Address: [address] [place] [address] Performed By: #### 5 7021-8 ####[facility] LABORATORYCLIA [id number] [address] IMMATURE GRAN % 0.6 % Normal [facility] Comment on above: Order Comment: Speci men Type: BLOOD SPECIMENOrdering Facility: [facility] Address: [address] [place] [address] Performed By: #### 5 7021-8 ####[facility] LABORATORYCLIA [id number] [address] IMMATURE GRAN ABS 0.05 k/uL Normal <0.10 [facility] Comment on above: Order Comment: Speci men Type: BLOOD SPECIMENOrdering Facility: [facility] Address: [address] [place] [address] Performed By: #### 5 7021-8 ####[facility] LABORATORYCLIA [id number] [address] Lymphocytes (Bld) [#/Vol] 1.40 10*3/uL Normal 1.00-4.00 [facility] Comment on above: Order Comment: Speci men Type: BLOOD SPECIMENOrdering Facility: [facility] Address: [address] [place] [address] Performed By: #### 5 7021-8 ####[facility] LABORATORYCLIA [id number] [address] Lymphocytes/100 WBC (Bld) 15.8 % Normal [facility] Comment on above: Order Comment: Speci men Type: BLOOD SPECIMENOrdering Facility: [facility] Address: [address] [place] [address] Performed By: #### 5 7021-8 ####[facility] LABORATORYCLIA [id number] [address] STATES OF [facility] MCH (RBC) [Entitic mass] 28.4 pg Normal 26.0-34.0 [facility] Comment on above: Order Comment: Speci men Type: BLOOD SPECIMENOrdering Facility: [facility] Address: [address] [place] [address] Performed By: #### 5 7021-8 ####[facility] LABORATORYCLIA [id number] [address] [facility] MCHC (RBC) [Mass/Vol] 30.8 g/dL Normal 30.5-36.0 [facility] Comment on above: Order Comment: Speci men Type: BLOOD SPECIMENOrdering Facility: [facility] Address: [address] [place] [address] Performed By: #### 5 7021-8 ####[facility] LABORATORYCLIA [id number] [place] [address] [place] MCV (RBC) [Entitic vol] 92.0 fL Normal 80.0-100.0 [facility] Comment on above: Order Comment: Speci men Type: BLOOD SPECIMENOrdering Facility: [facility] Address: [address] [place] [address] Performed By: #### 5 7021-8 ####[facility] LABORATORYCLIA [id number] [place], [place] [address] [place] Monocytes (Bld) [#/Vol] 0.61 10*3/uL Normal <0.87 [facility] Comment on above: Order Comment: Speci men Type: BLOOD SPECIMENOrdering Facility: [facility] Address: [address] [place] [address] Performed By: #### 5 7021-8 ####[facility] LABORATORYCLIA [id number] [address] [facility] Monocytes/100 WBC (Bld) 6.9 % Normal [facility] Comment on above: Order Comment: Speci men Type: BLOOD SPECIMENOrdering Facility: [facility] Address: [address] [place] [address] Performed By: #### 5 7021-8 ####[facility] LABORATORYCLIA [id number] [place] [address] [place] Neutrophils (Bld) [#/Vol] 6.62 10*3/uL Normal 1.45-7.50 [facility] Comment on above: Order Comment: Speci men Type: BLOOD SPECIMENOrdering Facility: [facility] Address: [address] [place] [address] Performed By: #### 5 7021-8 ####[facility] LABORATORYCLIA [id number] [address] [place] Neutrophils/100 WBC (Bld) 74.7 % Normal [facility] Comment on above: Order Comment: Speci men Type: BLOOD SPECIMENOrdering Facility: [facility] Address: [address] [address] Performed By: #### 5 7021-8 ####[facility] LABORATORYCLIA [id number] [address] Nucleated RBC (Bld) [#/Vol] 10*3/uL Normal <0.01 [facility] Comment on above: Order Comment: Speci men Type: BLOOD SPECIMENOrdering Facility: [facility] Address: [address] [place] [address] Performed By: #### 5 7021-8 ####[facility] LABORATORYCLIA [id number] [address] Nucleated RBC/100 WBC (Bld) [Ratio] 0.0 /100 WBC Normal [facility] Comment on above: Order Comment: Speci men Type: BLOOD SPECIMENOrdering Facility: [facility] Address: [address] [place] [address] Performed By: #### 5 7021-8 ####[facility] LABORATORYCLIA [id number] [address] [place] Platelet mean volume (Bld) [Entitic vol] 9.8 fL Normal 9.0-12.7 [facility] Comment on above: Order Comment: Speci men Type: BLOOD SPECIMENOrdering Facility: [facility] Address: [address] [place] [address] Performed By: #### 5 7021-8 ####[facility] LABORATORYCLIA [id number] [address] Platelets (Bld) [#/Vol] 157 10*3/uL Normal 150-400 [facility] Comment on above: Order Comment: Speci men Type: BLOOD SPECIMENOrdering Facility: [facility] Address: [address] [place] [address] Performed By: #### 5 7021-8 ####[facility] LABORATORYCLIA [id number] [address] OF [place] RBC (Bld) [#/Vol] 2.89 10*6/uL Low 4.20-6.00 [facility] Comment on above: Order Comment: Speci men Type: BLOOD SPECIMENOrdering Facility: [facility] Address: [address] [place] [address] Performed By: #### 5 7021-8 ####[facility] LABORATORYCLIA [id number] [place] [address] [place] WBC (Bld) [#/Vol] 8.86 10*3/uL Normal 3.70-11.00 [facility] Comment on above: Order Comment: Speci men Type: BLOOD SPECIMENOrdering Facility: [facility] Address: [address] [place] [address] Performed By: #### 5 7021-8 ####[facility] LABORATORYCLIA [id number] [address] OF [facility] CBC panel Auto (Bld)on 08-11 Erythrocyte distribution width (RBC) [Ratio] 17.2 % High 11.5-15.0 [facility] Comment on above: Order Comment: Speci men Type: BLOOD SPECIMENOrdering Facility: [facility] Address: [address] [place] [address] Performed By: #### 5 8410-2 ####[facility] LABORATORYCLIA [id number] [address] [place] Hematocrit (Bld) [Volume fraction] 27.0 % Low 39.0-51.0 [facility] Comment on above: Order Comment: Speci men Type: BLOOD SPECIMENOrdering Facility: [facility] Address: [address] [place] [address] Performed By: #### 5 8410-2 ####[facility] LABORATORYCLIA [id number] [address] Hemoglobin (Bld) [Mass/Vol] 8.3 g/dL Low 13.0-17.0 [facility] Comment on above: Order Comment: Speci men Type: BLOOD SPECIMENOrdering Facility: [facility] Address: [address] [place] [address] Performed By: #### 5 8410-2 ####[facility] LABORATORYCLIA [id number] [address] MCH (RBC) [Entitic mass] 28.7 pg Normal 26.0-34.0 [facility] Comment on above: Order Comment: Speci men Type: BLOOD SPECIMENOrdering Facility: [facility] Address: [address] [place] [address] Performed By: #### 5 8410-2 ####[facility] LABORATORYCLIA [id number] [address] MCHC (RBC) [Mass/Vol] 30.7 g/dL Normal 30.5-36.0 [facility] Comment on above: Order Comment: Speci men Type: BLOOD SPECIMENOrdering Facility: [facility] Address: [address] [place] [address] Performed By: #### 5 8410-2 ####[facility] LABORATORYCLIA [id number] [address] STATES OF [facility] MCV (RBC) [Entitic vol] 93.4 fL Normal 80.0-100.0 [facility] Comment on above: Order Comment: Speci men Type: BLOOD SPECIMENOrdering Facility: [facility] Address: [address] [place] [address] Performed By: #### 5 8410-2 ####[facility] LABORATORYCLIA [id number] [address] Nucleated RBC (Bld) [#/Vol] 10*3/uL Normal <0.01 [facility] Comment on above: Order Comment: Speci men Type: BLOOD SPECIMENOrdering Facility: [facility] Address: [address] [place] [address] Performed By: #### 5 8410-2 ####[facility] LABORATORYCLIA [id number] [address] Platelet mean volume (Bld) [Entitic vol] 9.8 fL Normal 9.0-12.7 [facility] Comment on above: Order Comment: Speci men Type: BLOOD SPECIMENOrdering Facility: [facility] Address: [address] [place] [address] Performed By: #### 5 8410-2 ####[facility] LABORATORYCLIA [id number] [address] Platelets (Bld) [#/Vol] 169 10*3/uL Normal 150-400 [facility] Comment on above: Order Comment: Speci men Type: BLOOD SPECIMENOrdering Facility: [facility] Address: [address] [place] [address] Performed By: #### 5 8410-2 ####[facility] LABORATORYCLIA [id number] [address] STATES OF [facility] RBC (Bld) [#/Vol] 2.89 10*6/uL Low 4.20-6.00 [facility] Comment on above: Order Comment: Speci men Type: BLOOD SPECIMENOrdering Facility: [facility] Address: [address] [place] [address] Performed By: #### 5 8410-2 ####[facility] LABORATORYCLIA [id number] [address] WBC (Bld) [#/Vol] 9.03 10*3/uL Normal 3.70-11.00 [facility] Comment on above: Order Comment: Speci men Type: BLOOD SPECIMENOrdering Facility: [facility] Address: [address] [place] [address] Performed By: #### 5 8410-2 ####[facility] LABORATORYCLIA [id number] [address] BRAIN WO IVCONon 08-12-19 CT BRAIN WO IVCON Normal [facility] PT panel Coag (PPP)on 2021 INR Coag (PPP) [Relative time] 1.0 {INR} Normal 0.9-1.3 [facility] Comment on above: Order Comment: Shira feldman Type: BLOOD SPECIMENOrdering Facility: [facility] Address: [address] [phone] Result Comment: Yris min K Antagonist (VKA) Therapeutic Range: INR 2 to 3 (Target INR of 2.5)Note: For patients treated with VKA drugs, such as warfarin, the [employer] 2012 Guideline recommends [...] al. Chest 2012, 141:7S-47SNishimura RA, et al. [facility] 2017, 70: 252-289 Performed By: #### 1 4979-9, 18128-9 ####[facility] LABORATORYCLIA [id number] [place] [address] [place] PT Coag (PPP) [Time] 11.4 s Normal 9.7-13.0 [facility] Comment on above: Order Comment: Shira feldman Type: BLOOD SPECIMENOrdering Facility: [facility] Address: [address] [phone] Performed By: #### 1 4979-9, 76754-4 ####[facility] LABORATORYCLIA [id number] [place] [address] [place] THERAPY NTon 08-11-2021 THERAPY NT Normal [facility] US DVT LOWER BILon 2 US DVT LOWER RAINER Normal [facility] US DVT UPPER BILon 2 US DVT UPPER RAINER Normal [facility] aPTT PPPon 08-11-2021 aPTT Coag (PPP) [Time] 26.9 s Normal 23.0-32.4 [facility] Comment on above: Order Comment: Speci men Type: BLOOD SPECIMENOrdering Facility: [facility] Address: [address] [place] [address] Performed By: #### 1 4979-9, 00912-4 ####[facility] LABORATORYCLIA [id number] [place] [address] [place] Basic metabolic 2000 panelon 08-10-2021 Anion gap [Moles/Vol] 11 mmol/L Normal 9-18 [facility] Comment on above: Order Comment: Speci men Type: BLOOD SPECIMENOrdering Facility: [facility] Address: [address] [place] [address] Performed By: #### 2 4321-2 ####[facility] LABORATORYCLIA [id number] [place] [address] [place] Calcium [Mass/Vol] 8.7 mg/dL Normal 8.5-10.2 [facility] Comment on above: Order Comment: Speci men Type: BLOOD SPECIMENOrdering Facility: [facility] Address: [address] [place] [address] Performed By: #### 2 4321-2 ####[facility] LABORATORYCLIA [id number] [address] [place] Chloride [Moles/Vol] 98 mmol/L Normal 97-105 [facility] Comment on above: Order Comment: Speci men Type: BLOOD SPECIMENOrdering Facility: [facility] Address: [address] [place] [address] Performed By: #### 2 4321-2 ####[facility] LABORATORYCLIA [id number] [place] [address] [place] CO2 [Moles/Vol] 28 mmol/L Normal 22-30 [facility] Comment on above: Order Comment: Speci men Type: BLOOD SPECIMENOrdering Facility: [facility] Address: [address] [place] [address] Performed By: #### 2 4321-2 ####[facility] LABORATORYCLIA [id number] [address] STATES OF [facility] Creatinine [Mass/Vol] 0.59 mg/dL Low 0.73-1.22 [facility] Comment on above: Order Comment: Johncara feldman Type: BLOOD SPECIMENOrdering Facility: [facility] Address: [address] [place] [address] Performed By: #### 2 4321-2 ####[facility] LABORATORYCLIA [id number] [address] ESTIMATED GLOMERULAR FILTRATION RATE 105 mL/min/1.73m??? Normal >=60 [facility] Comment on above: Order Comment: Shira feldman Type: BLOOD SPECIMENOrdering Facility: [facility] Address: [address] [place] [address] Result Comment: Luzmaria mated Glomerular Filtration Rate [...] #### 2 4321-2 ####[facility] HOSPITALIA [id number] [address] STATES OF [facility] Glucose [Mass/Vol] 118 mg/dL High 74-99 [facility] Comment on above: Order Comment: Shira francia Type: BLOOD SPECIMENOrdering Facility: [facility] Address: [address] [place] [address] Result Comment: The [place] [employer] (ADA) provides guidance for cutoff [...] Standards of Medical Care in Diabetes 2016, [place] [employer]. Diabetes Care. 2016.39(Suppl 1). Performed By: #### 2 4321-2 ####[facility] LABORATORYCLIA [id number] [address] [place] Potassium [Moles/Vol] 3.7 mmol/L Normal 3.7-5.1 [facility] Comment on above: Order Comment: Speci men Type: BLOOD SPECIMENOrdering Facility: [facility] Address: [address] [place] [address] Performed By: #### 2 4321-2 ####[facility] LABORATORYCLIA [id number] [address] STATES OF [facility] Sodium [Moles/Vol] 137 mmol/L Normal 136-144 [facility] Comment on above: Order Comment: Speci men Type: BLOOD SPECIMENOrdering Facility: [facility] Address: [address] [place] [address] Performed By: #### 2 4321-2 ####[facility] LABORATORYCLIA [id number] [address] [facility] Urea nitrogen [Mass/Vol] 23 mg/dL Normal 9-24 [facility] Comment on above: Order Comment: Speci men Type: BLOOD SPECIMENOrdering Facility: [facility] Address: [address] [place] [address] Performed By: #### 2 4321-2 ####[facility] LABORATORYCLIA [id number] [address] [place] Anion gap [Moles/Vol] 17 mmol/L Normal 9-18 [facility] Comment on above: Order Comment: Speci men Type: BLOOD SPECIMENOrdering Facility: [facility] Address: [address] [place] [address] Performed By: #### 1 9123-9, 2777-1, 72235-2 ####[facility] LABORATORYCLIA [id number] [address] STATES OF [facility] Calcium [Mass/Vol] 7.7 mg/dL Low 8.5-10.2 [facility] Comment on above: Order Comment: Speci men Type: BLOOD SPECIMENOrdering Facility: [facility] Address: [address] [place] [address] Performed By: #### 1 9123-9, 2777-1, 04884-4 ####[facility] LABORATORYCLIA [id number] [place] [address] [place] Chloride [Moles/Vol] 86 mmol/L Low 97-105 [facility] Comment on above: Order Comment: Speci men Type: BLOOD SPECIMENOrdering Facility: [facility] Address: [address] [place] [address] Performed By: #### 1 9123-9, 2776-05, 35490-9 ####[facility] LABORATORYCLIA [id number] [address] STATES OF [facility] CO2 [Moles/Vol] 24 mmol/L Normal 22-30 [facility] Comment on above: Order Comment: Speci men Type: BLOOD SPECIMENOrdering Facility: [facility] Address: [address] [place] [address] Performed By: #### 1 9123-9, 2776-05, 54002-3 ####[facility] LABORATORYCLIA [id number] [address] STATES OF [facility] Creatinine [Mass/Vol] 0.53 mg/dL Low 0.73-1.22 [facility] Comment on above: Order Comment: Speci men Type: BLOOD SPECIMENOrdering Facility: [facility] Address: [address] [place] [address] Performed By: #### 1 9123-9, 27711-04, 01453-6 ####[facility] LABORATORYCLIA [id number] [address] OF [facility] ESTIMATED GLOMERULAR FILTRATION RATE 108 mL/min/1.73m??? Normal >=60 [facility] Comment on above: Order Comment: Speci men Type: BLOOD SPECIMENOrdering Facility: [facility] Address: [address] [phone] Result Comment: Luzmaria mated Glomerular Filtration Rate [...] GFR. Performed By: #### 1 9123-9, 2777-1, 86653-8 ####[facility] HOSPITALCLIA [id number] [place] [address] [place] Glucose [Mass/Vol] 455 mg/dL High 74-99 [facility] Comment on above: Order Comment: Shira feldman Type: BLOOD SPECIMENOrdering Facility: [facility] Address: [address] [place] [address] Result Comment: The [place] Diabetes [employer] (ADA) provides guidance for cutoff [...] Standards of Medical Care in Diabetes 2016, [place] [employer]. Diabetes Care. 2016.39(Suppl 1). Performed By: #### 1 9123-9, 2777-1, 41705-0 ####[facility] LABORATORYCLIA [id number] [place] [address] [place] Potassium [Moles/Vol] 3.4 mmol/L Low 3.7-5.1 [facility] Comment on above: Order Comment: Shira [facility] Type: BLOOD SPECIMENOrdering Facility: [facility] Address: [address] [phone] Performed By: #### 1 9123-9, 2777-, 34686-8 ####[facility] LABORATORYCLIA [id number] [address] [place] Sodium [Moles/Vol] 127 mmol/L Low 136-144 [facility] Comment on above: Order Comment: Speci men Type: BLOOD SPECIMENOrdering Facility: [facility] Address: [address] [place] [address] Performed By: #### 1 9123-9, 2777, 32223-6 ####[facility] LABORATORYCLIA [id number] [address] [place] Urea nitrogen [Mass/Vol] 21 mg/dL Normal 9-24 [facility] Comment on above: Order Comment: Speci men Type: BLOOD SPECIMENOrdering Facility: [facility] Address: [address] [place] [address] Performed By: #### 1 9123-9, 2777, ####[facility] LABORATORYCLIA [id number] [address] [place] CASE MANAGEMon 08-10-2021 CASE MANAGEM Normal [facility] CBC W Auto Differential pane l (Bld)on 08-10-2021 Basophils (Bld) [#/Vol] 0.04 10*3/uL Normal <0.11 [facility] Comment on above: Order Comment: Speci men Type: BLOOD SPECIMENOrdering Facility: [facility] Address: [address] [place] [address] Performed By: #### 5 7021-8 ####[facility] LABORATORYCLIA [id number] [address] [facility] Basophils/100 WBC (Bld) 0.4 % Normal [facility] Comment on above: Order Comment: Speci men Type: BLOOD SPECIMENOrdering Facility: [facility] Address: [address] [place] [address] Performed By: #### 5 7021-8 ####[facility] LABORATORYCLIA [id number] [address] Differential cell count method Nom (Bld) Auto Normal [facility] Comment on above: Order Comment: Speci men Type: BLOOD SPECIMENOrdering Facility: [facility] Address: [address] [place] [address] Performed By: #### 5 7021-8 ####[facility] LABORATORYCLIA [id number] [address] [place] Eosinophils (Bld) [#/Vol] 0.11 10*3/uL Normal <0.46 [facility] Comment on above: Order Comment: Speci men Type: BLOOD SPECIMENOrdering Facility: [facility] Address: [address] [place] [address] Performed By: #### 5 7021-8 ####[facility] LABORATORYCLIA [id number] [address] Eosinophils/100 WBC (Bld) 1.1 % Normal [facility] Comment on above: Order Comment: Speci men Type: BLOOD SPECIMENOrdering Facility: [facility] Address: [address] [place] [address] Performed By: #### 5 7021-8 ####[facility] LABORATORYCLIA [id number] [address] Erythrocyte distribution width (RBC) [Ratio] 17.2 % High 11.5-15.0 [facility] Comment on above: Order Comment: Speci men Type: BLOOD SPECIMENOrdering Facility: [facility] Address: [address] [place] [address] Performed By: #### 5 7021-8 ####[facility] LABORATORYCLIA [id number] [address] Hematocrit (Bld) [Volume fraction] 25.5 % Low 39.0-51.0 [facility] Comment on above: Order Comment: Speci men Type: BLOOD SPECIMENOrdering Facility: [facility] Address: [address] [place] [address] Performed By: #### 5 7021-8 ####[facility] LABORATORYCLIA [id number] [address] STATES OF [facility] Hemoglobin (Bld) [Mass/Vol] 7.9 g/dL Low 13.0-17.0 [facility] Comment on above: Order Comment: Speci men Type: BLOOD SPECIMENOrdering Facility: [facility] Address: [address] [place] [address] Performed By: #### 5 7021-8 ####[facility] LABORATORYCLIA [id number] [address] IMMATURE GRAN % 0.4 % Normal [facility] Comment on above: Order Comment: Speci men Type: BLOOD SPECIMENOrdering Facility: [facility] Address: [address] [place] [address] Performed By: #### 5 7021-8 ####[facility] LABORATORYCLIA [id number] [address] IMMATURE GRAN ABS 0.04 k/uL Normal <0.10 [facility] Comment on above: Order Comment: Speci men Type: BLOOD SPECIMENOrdering Facility: [facility] Address: [address] [place] [address] Performed By: #### 5 7021-8 ####[facility] LABORATORYCLIA [id number] [address] [place] Lymphocytes (Bld) [#/Vol] 1.66 10*3/uL Normal 1.00-4.00 [facility] Comment on above: Order Comment: Speci men Type: BLOOD SPECIMENOrdering Facility: [facility] Address: [address] [place] [address] Performed By: #### 5 7021-8 ####[facility] LABORATORYCLIA [id number] [address] Lymphocytes/100 WBC (Bld) 16.2 % Normal [facility] Comment on above: Order Comment: Speci men Type: BLOOD SPECIMENOrdering Facility: [facility] Address: [address] [place] [address] Performed By: #### 5 7021-8 ####[facility] LABORATORYCLIA [id number] [address] MCH (RBC) [Entitic mass] 28.5 pg Normal 26.0-34.0 [facility] Comment on above: Order Comment: Speci men Type: BLOOD SPECIMENOrdering Facility: [facility] Address: [address] [place] [address] Performed By: #### 5 7021-8 ####[facility] LABORATORYCLIA [id number] [address] MCHC (RBC) [Mass/Vol] 31.0 g/dL Normal 30.5-36.0 [facility] Comment on above: Order Comment: Speci men Type: BLOOD SPECIMENOrdering Facility: [facility] Address: [address] [place] [address] Performed By: #### 5 7021-8 ####[facility] LABORATORYCLIA [id number] [address] MCV (RBC) [Entitic vol] 92.1 fL Normal 80.0-100.0 [facility] Comment on above: Order Comment: Speci men Type: BLOOD SPECIMENOrdering Facility: [facility] Address: [address] [place] [address] Performed By: #### 5 7021-8 ####[facility] LABORATORYCLIA [id number] [address] Monocytes (Bld) [#/Vol] 0.51 10*3/uL Normal <0.87 [facility] Comment on above: Order Comment: Speci men Type: BLOOD SPECIMENOrdering Facility: [facility] Address: [address] [place] [address] Performed By: #### 5 7021-8 ####[facility] LABORATORYCLIA [id number] [address] Monocytes/100 WBC (Bld) 5.0 % Normal [facility] Comment on above: Order Comment: Speci men Type: BLOOD SPECIMENOrdering Facility: [facility] Address: [address] [place] [address] Performed By: #### 5 7021-8 ####[facility] LABORATORYCLIA [id number] [address] [place] Neutrophils (Bld) [#/Vol] 7.91 10*3/uL High 1.45-7.50 [facility] Comment on above: Order Comment: Speci men Type: BLOOD SPECIMENOrdering Facility: [facility] Address: [address] [place] [address] Performed By: #### 5 7021-8 ####[facility]ORATORYCLIA [id number] [address] OF [place] Neutrophils/100 WBC (Bld) 76.9 % Normal [facility] Comment on above: Order Comment: Speci men Type: BLOOD SPECIMENOrdering Facility: [facility] Address: [address] [place] [address] Performed By: #### 5 7021-8 ####[facility] LABORATORYCLIA [id number] [address] [place] Nucleated RBC (Bld) [#/Vol] 10*3/uL Normal <0.01 [facility] Comment on above: Order Comment: Speci men Type: BLOOD SPECIMENOrdering Facility: [facility] Address: [address] [place] [address] Performed By: #### 5 7021-8 ####[facility] LABORATORYCLIA [id number] [address] [place] Nucleated RBC/100 WBC (Bld) [Ratio] 0.0 /100 WBC Normal [facility] Comment on above: Order Comment: Speci men Type: BLOOD SPECIMENOrdering Facility: [facility] Address: [address] [place] [address] Performed By: #### 5 7021-8 ####[facility] LABORATORYCLIA [id number] [address] [place] Platelet mean volume (Bld) [Entitic vol] 10.3 fL Normal 9.0-12.7 [facility] Comment on above: Order Comment: Speci men Type: BLOOD SPECIMENOrdering Facility: [facility] Address: [address] [place] [address] Performed By: #### 5 7021-8 ####[facility] LABORATORYCLIA [id number] [place] [address] [place] Platelets (Bld) [#/Vol] 152 10*3/uL Normal 150-400 [facility] Comment on above: Order Comment: Speci men Type: BLOOD SPECIMENOrdering Facility: [facility] Address: [address] [place] [address] Performed By: #### 5 7021-8 ####[facility] LABORATORYCLIA [id number] [address] STATES OF [facility] RBC (Bld) [#/Vol] 2.77 10*6/uL Low 4.20-6.00 [facility] Comment on above: Order Comment: Speci men Type: BLOOD SPECIMENOrdering Facility: [facility] Address: [address] [place] [address] Performed By: #### 5 7021-8 ####[facility] LABORATORYCLIA [id number] [address] [place] WBC (Bld) [#/Vol] 10.27 10*3/uL Normal 3.70-11.00 [facility] Comment on above: Order Comment: Speci men Type: BLOOD SPECIMENOrdering Facility: [facility] Address: [address] [place] [address] Performed By: #### 5 7021-8 ####[facility] LABORATORYCLIA [id number] [address] [place] Magnesium SerPl-mCncon 08-10 Magnesium [Mass/Vol] 1.8 mg/dL Normal 1.7-2.3 [facility] Comment on above: Order Comment: Speci men Type: BLOOD SPECIMENOrdering Facility: [facility] Address: [facility] [place] [address] Performed By: #### 1 9123-9, 2777-1, 17402-8 ####[facility] LABORATORYCLIA [id number] [address] OF [facility] NURSING PROGon 08-10-2021 NURSING PROG Normal [facility] NURSING PROG Normal [facility] NUTRITIONon 08-10-2021 NUTRITION Normal [facility] Phosphate SerPl-mCncon 08-10 Phosphate [Mass/Vol] 3.7 mg/dL Normal 2.7-4.8 [facility] Comment on above: Order Comment: Speci men Type: BLOOD SPECIMENOrdering Facility: [facility] Address: [address] [place] [address] Performed By: #### 1 9123-9, 2777, 82150-7 ####[facility] LABORATORYCLIA [id number] [address] [place] ALLIED HEALTHon 08-09-2021 ALLIED HEALTH Normal [facility] ANES POSTPROC EVALon 022 ANES POSTPROC EVAL Normal [facility] ANES PRE-OPon 08-09-2021 ANES PRE-OP Normal [facility] BRIEF OP NOTon 08-09-2021 BRIEF OP NOT Normal [facility] Basic metabolic 2000 panelon 08-09-2021 Anion gap [Moles/Vol] 8 mmol/L Low 9-18 [facility] Comment on above: Order Comment: Speci men Type: BLOOD SPECIMENOrdering Facility: [facility] Address: [facility] [place] [address] Performed By: #### 2 4321-2, 60148-0, 2777-1 ####[facility] LABORATORYCLIA [id number] [address] [place] Calcium [Mass/Vol] 9.2 mg/dL Normal 8.5-10.2 [facility] Comment on above: Order Comment: Speci men Type: BLOOD SPECIMENOrdering Facility: [facility] Address: [address] [place] [address] Performed By: #### 2 4321-2, , 2776-05 ####[facility] LABORATORYCLIA [id number] [place] [address] [place] Chloride [Moles/Vol] 97 mmol/L Normal 97-105 [facility] Comment on above: Order Comment: Speci men Type: BLOOD SPECIMENOrdering Facility: [facility] Address: [address] [place] [address] Performed By: #### 2 4321-2, , 2776-05 ####[facility] LABORATORYCLIA [id number] [address] [place] CO2 [Moles/Vol] 30 mmol/L Normal 22-30 [facility] Comment on above: Order Comment: Speci men Type: BLOOD SPECIMENOrdering Facility: [facility] Address: [address] [place] [address] Performed By: #### 2 4321-2, , 2776-05 ####[facility] LABORATORYCLIA [id number] [address] [place] Creatinine [Mass/Vol] 0.51 mg/dL Low 0.73-1.22 [facility] Comment on above: Order Comment: Speci men Type: BLOOD SPECIMENOrdering Facility: [facility] Address: [address] [place] [address] Performed By: #### 2 4321-2, , 2776-05 ####[facility] LABORATORYCLIA [id number] [address] ESTIMATED GLOMERULAR FILTRATION RATE 110 mL/min/1.73m??? Normal >=60 [facility] Comment on above: Order Comment: Speci men Type: BLOOD SPECIMENOrdering Facility: [facility] Address: [address] [place] [address] Result Comment: Luzmaria mated Glomerular Filtration Rate [...] 4321-2, , 2776-05 ####[facility] HOSPITALIA [id number] [place] [address] [place] Glucose [Mass/Vol] 106 mg/dL High 74-99 [facility] Comment on above: Order Comment: Shira feldman Type: BLOOD SPECIMENOrdering Facility: [facility] Address: [address] [place], [place] [address] Result Comment: The [place] [employer] (ADA) provides guidance for cutoff [...] Standards of Medical Care in Diabetes 2016, [place] [employer]. Diabetes Care. 2016.39(Suppl 1). Performed By: #### 2 4321-2, , 2776-05 ####[facility] LABORATORYIA [id number] [place] [address] [place] Potassium [Moles/Vol] 4.1 mmol/L Normal 3.7-5.1 [facility] Comment on above: Order Comment: Shira feldman Type: BLOOD SPECIMENOrdering Facility: [facility] Address: [address] [place] [id number] Performed By: #### 2 4321-2, , 2776-05 ####[facility] LABORATORYCLIA [id number] [place] [address] [place] Sodium [Moles/Vol] 135 mmol/L Low 136-144 [facility] Comment on above: Order Comment: Speci men Type: BLOOD SPECIMENOrdering Facility: [facility] Address: [address] [place] [address] Performed By: #### 2 4321-2, , 2776-05 ####[facility] LABORATORYCLIA [id number] [place] [address] [place] Urea nitrogen [Mass/Vol] 26 mg/dL High 9-24 [facility] Comment on above: Order Comment: Speci men Type: BLOOD SPECIMENOrdering Facility: [facility] Address: [address] [place] [address] Performed By: #### 2 4321-2, , 2776-05 ####[facility] LABORATORYCLIA [id number] [address] [place] CBC W Auto Differential pane l (Bld)on 08-09-2021 Basophils (Bld) [#/Vol] 0.06 10*3/uL Normal <0.11 [facility] Comment on above: Order Comment: Speci men Type: BLOOD SPECIMENOrdering Facility: [facility] Address: [address] [place] [address] Performed By: #### 5 7021-8 ####[facility] LABORATORYCLIA [id number] [address] [place] Basophils/100 WBC (Bld) 0.5 % Normal [facility] Comment on above: Order Comment: Speci men Type: BLOOD SPECIMENOrdering Facility: [facility] Address: [address] [place] [address] Performed By: #### 5 7021-8 ####[facility] LABORATORYCLIA [id number] [address] [place] Differential cell count method Nom (Bld) Auto Normal [facility] Comment on above: Order Comment: Speci men Type: BLOOD SPECIMENOrdering Facility: [facility] Address: [address] [place] [address] Performed By: #### 5 7021-8 ####[facility] LABORATORYCLIA [id number] [address] [place] Eosinophils (Bld) [#/Vol] 0.42 10*3/uL Normal <0.46 [facility] Comment on above: Order Comment: Speci men Type: BLOOD SPECIMENOrdering Facility: [facility] Address: [address] [place] [address] Performed By: #### 5 7021-8 ####[facility] LABORATORYCLIA [id number] [address] [place] Eosinophils/100 WBC (Bld) 3.8 % Normal [facility] Comment on above: Order Comment: Speci men Type: BLOOD SPECIMENOrdering Facility: [facility] Address: [address] [place] [address] Performed By: #### 5 7021-8 ####[facility] LABORATORYCLIA [id number] [address] [place] Erythrocyte distribution width (RBC) [Ratio] 17.6 % High 11.5-15.0 [facility] Comment on above: Order Comment: Speci men Type: BLOOD SPECIMENOrdering Facility: [facility] Address: [address] [place] [address] Performed By: #### 5 7021-8 ####[facility] LABORATORYCLIA [id number] [address] OF [place] Hematocrit (Bld) [Volume fraction] 29.3 % Low 39.0-51.0 [facility] Comment on above: Order Comment: Speci men Type: BLOOD SPECIMENOrdering Facility: [facility] Address: [address] [place] [address] Performed By: #### 5 7021-8 ####[facility]ATORYCLIA [id number] [address] [place] Hemoglobin (Bld) [Mass/Vol] 9.0 g/dL Low 13.0-17.0 [facility] Comment on above: Order Comment: Speci men Type: BLOOD SPECIMENOrdering Facility: [facility] Address: [address] [place] [address] Performed By: #### 5 7021-8 ####[facility] LABORATORYCLIA [id number] [address] IMMATURE GRAN % 0.5 % Normal [facility] Comment on above: Order Comment: Speci men Type: BLOOD SPECIMENOrdering Facility: [facility] Address: [address] [place] [address] Performed By: #### 5 7021-8 ####[facility] LABORATORYCLIA [id number] [address] IMMATURE GRAN ABS 0.05 k/uL Normal <0.10 [facility] Comment on above: Order Comment: Speci men Type: BLOOD SPECIMENOrdering Facility: [facility] Address: [address] [place] [address] Performed By: #### 5 7021-8 ####[facility] LABORATORYCLIA [id number] [address] [place] Lymphocytes (Bld) [#/Vol] 2.00 10*3/uL Normal 1.00-4.00 [facility] Comment on above: Order Comment: Speci men Type: BLOOD SPECIMENOrdering Facility: [facility] Address: [address] [place] [address] Performed By: #### 5 7021-8 ####[facility] LABORATORYCLIA [id number] [address] Lymphocytes/100 WBC (Bld) 18.1 % Normal [facility] Comment on above: Order Comment: Speci men Type: BLOOD SPECIMENOrdering Facility: [facility] Address: [address] [place] [address] Performed By: #### 5 7021-8 ####[facility] LABORATORYCLIA [id number] [address] MCH (RBC) [Entitic mass] 28.1 pg Normal 26.0-34.0 [facility] Comment on above: Order Comment: Speci men Type: BLOOD SPECIMENOrdering Facility: [facility] Address: [address] [place] [address] Performed By: #### 5 7021-8 ####[facility] LABORATORYCLIA [id number] [address] [facility] MCHC (RBC) [Mass/Vol] 30.7 g/dL Normal 30.5-36.0 [facility] Comment on above: Order Comment: Speci men Type: BLOOD SPECIMENOrdering Facility: [facility] Address: [address] [place] [address] Performed By: #### 5 7021-8 ####[facility] LABORATORYCLIA [id number] [address] MCV (RBC) [Entitic vol] 91.6 fL Normal 80.0-100.0 [facility] Comment on above: Order Comment: Speci men Type: BLOOD SPECIMENOrdering Facility: [facility] Address: [address] [place] [address] Performed By: #### 5 7021-8 ####[facility] LABORATORYCLIA [id number] [address] Monocytes (Bld) [#/Vol] 0.68 10*3/uL Normal <0.87 [facility] Comment on above: Order Comment: Speci men Type: BLOOD SPECIMENOrdering Facility: [facility] Address: [address] [place] [address] Performed By: #### 5 7021-8 ####[facility] LABORATORYCLIA [id number] [address] Monocytes/100 WBC (Bld) 6.2 % Normal [facility] Comment on above: Order Comment: Speci men Type: BLOOD SPECIMENOrdering Facility: [facility] Address: [address] [place] [address] Performed By: #### 5 7021-8 ####[facility] LABORATORYCLIA [id number] [address] [place] Neutrophils (Bld) [#/Vol] 7.82 10*3/uL High 1.45-7.50 [facility] Comment on above: Order Comment: Speci men Type: BLOOD SPECIMENOrdering Facility: [facility] Address: [address] [place] [address] Performed By: #### 5 7021-8 ####[facility] LABORATORYCLIA [id number] [address] [place] Neutrophils/100 WBC (Bld) 70.9 % Normal [facility] Comment on above: Order Comment: Speci men Type: BLOOD SPECIMENOrdering Facility: [facility] Address: [address] [place] [address] Performed By: #### 5 7021-8 ####[facility] LABORATORYCLIA [id number] [address] [place] Nucleated RBC (Bld) [#/Vol] 10*3/uL Normal <0.01 [facility] Comment on above: Order Comment: Speci men Type: BLOOD SPECIMENOrdering Facility: [facility] Address: [address] [place] [address] Performed By: #### 5 7021-8 ####[facility] LABORATORYCLIA [id number] [address] [place] Nucleated RBC/100 WBC (Bld) [Ratio] 0.0 /100 WBC Normal [facility] Comment on above: Order Comment: Speci men Type: BLOOD SPECIMENOrdering Facility: [facility] Address: [address] [place] [address] Performed By: #### 5 7021-8 ####[facility]ATORYCLIA [id number] [address] [place] Platelet mean volume (Bld) [Entitic vol] 10.1 fL Normal 9.0-12.7 [facility] Comment on above: Order Comment: Speci men Type: BLOOD SPECIMENOrdering Facility: [facility] Address: [address] [place] [address] Performed By: #### 5 7021-8 ####[facility] LABORATORYCLIA [id number] [place] [address] [place] Platelets (Bld) [#/Vol] 160 10*3/uL Normal 150-400 [facility] Comment on above: Order Comment: Speci men Type: BLOOD SPECIMENOrdering Facility: [facility] Address: [address] [place] [address] Performed By: #### 5 7021-8 ####[facility] LABORATORYCLIA [id number] [place] [address] [place] RBC (Bld) [#/Vol] 3.20 10*6/uL Low 4.20-6.00 [facility] Comment on above: Order Comment: Speci men Type: BLOOD SPECIMENOrdering Facility: [facility] Address: [address] [place] [address] Performed By: #### 5 7021-8 ####[facility] LABORATORYCLIA [id number] [place] [address] [place] WBC (Bld) [#/Vol] 11.03 10*3/uL High 3.70-11.00 [facility] Comment on above: Order Comment: Speci men Type: BLOOD SPECIMENOrdering Facility: [facility] Address: [address] [place] [address] Performed By: #### 5 7021-8 ####[facility] LABORATORYCLIA [id number] [address] [place] CONSULT PROGon 08-09-2021 CONSULT PROG Normal [facility] CT BRAIN WO IVCONon 08-10-19 CT BRAIN WO IVCON Normal [facility] CT BRAIN WO IVCON Normal [facility] Magnesium SerPl-mCncon 08-09 Magnesium [Mass/Vol] 2.0 mg/dL Normal 1.7-2.3 [facility] Comment on above: Order Comment: Shira feldman Type: BLOOD SPECIMENOrdering Facility: [facility] Address: [address] [place] [address] Performed By: #### 2 4321-2, 01058-7, 2777-1 ####[facility] LABORATORYCLIA [id number] [address] OF [facility] NURSING PROGon 08-09-2021 NURSING PROG Normal [facility] OPERATIVE NOon 08-09-2021 OPERATIVE NO Normal [facility] PT panel Coag (PPP)on 2021 INR Coag (PPP) [Relative time] 1.1 {INR} Normal 0.9-1.3 [facility] Comment on above: Order Comment: Shira feldman Type: BLOOD SPECIMENOrdering Facility: [facility] Address: [address] [place] [address] Result Comment: Yris min K Antagonist (VKA) Therapeutic Range: INR 2 to 3 (Target INR of 2.5)Note: For patients treated with VKA drugs, such as warfarin, the [place] [employer] 2012 Guideline recommends [...] al. Chest 2012, 141:7S-47SNishmariangel RA, et al. [facility] 2017, 70: 252-289 Performed By: #### 3 4528-0, 68428-4 ####[facility] LABORATORYCLIA [id number] [address] [place] PT Coag (PPP) [Time] 11.7 s Normal 9.7-13.0 [facility] Comment on above: Order Comment: Speci men Type: BLOOD SPECIMENOrdering Facility: [facility] Address: [address] [place] [address] Performed By: #### 3 4528-0, 27548-4 ####[facility] LABORATORYCLIA [id number] [address] Phosphate SerPl-mCncon 08-09 Phosphate [Mass/Vol] 4.0 mg/dL Normal 2.7-4.8 [facility] Comment on above: Order Comment: Speci men Type: BLOOD SPECIMENOrdering Facility: [facility] Address: [address] [place] [address] Performed By: #### 2 4321-2, 93175-7, 2777-1 ####[facility] LABORATORYCLIA [id number] [address] THERAPY NTon 08-09-2021 THERAPY NT Normal [facility] THERAPY NT Normal [facility] TYPE AND SCREENon 08-09-2021 ABO O Normal [facility] Comment on above: Order Comment: Speci men Type: BLOOD SPECIMENOrdering Facility: [facility] Address: [address] [place] [address] Performed By: #### T SCR ####[facility] BLOOD BANKCLIA [id number] [address] OF [facility] HISTORICAL AB SCR STATUS Negative Normal [facility] Comment on above: Order Comment: Speci men Type: BLOOD SPECIMENOrdering Facility: [facility] Address: [address] [place] [address] Performed By: #### T SCR ####[facility] BLOOD BANKCLIA [id number] [address] Rh Nom (Bld) Positive Normal [facility] Comment on above: Order Comment: Speci men Type: BLOOD SPECIMENOrdering Facility: [facility] Address: [address] [place] [address] Performed By: #### T SCR ####[facility] BLOOD BANKCLIA [id number] [address] TYPE AND SCREEN EXPIRATION 08/12/2021 23:59 Normal [facility] Comment on above: Order Comment: Speci men Type: BLOOD SPECIMENOrdering Facility: [facility] Address: [address] [place] [address] Performed By: #### T SCR ####[facility] BLOOD BANKCLIA [id number] [address] XR ABD 2V SUPINE W UPR/DECUB /CTLon 08-09-2021 XR ABD 2V SUPINE W UPR/DECUB/CTL Normal [facility] XR CHEST 1V FRONTALon 2021 XR CHEST 1V FRONTAL Normal [facility] XR NECK SOFT TISSUE 2V AP/LA Ton 08-09-2021 XR NECK SOFT TISSUE 2V AP/LAT Normal [facility] XR SKULL 2V AP/LATon 022 XR SKULL 2V AP/LAT Normal [facility] aPTT PPPon 08-09-2021 aPTT Coag (PPP) [Time] 26.8 s Normal 23.0-32.4 [facility] Comment on above: Order Comment: Speci men Type: BLOOD SPECIMENOrdering Facility: [facility] Address: [address] [place] [address] Performed By: #### 3 4528-0, 36050-5 ####[facility] LABORATORYCLIA [id number] [address] CASE MANAGEMon 08-08-2021 CASE MANAGEM Normal [facility] CBC W Auto Differential pane l (Bld)on 08-08-2021 Basophils (Bld) [#/Vol] 0.05 10*3/uL Normal <0.11 [facility] Comment on above: Order Comment: Speci men Type: BLOOD SPECIMENOrdering Facility: [facility] Address: [address] [place] [address] Performed By: #### 5 7021-8 ####[facility]ATORYCLIA [id number] [address] [facility] Basophils/100 WBC (Bld) 0.5 % Normal [facility] Comment on above: Order Comment: Speci men Type: BLOOD SPECIMENOrdering Facility: [facility] Address: [address] [place] [address] Performed By: #### 5 7021-8 ####[facility] LABORATORYCLIA [id number] [address] [place] Differential cell count method Nom (Bld) Auto Normal [facility] Comment on above: Order Comment: Speci men Type: BLOOD SPECIMENOrdering Facility: [facility] Address: [address] [place] [address] Performed By: #### 5 7021-8 ####[facility] LABORATORYCLIA [id number] [address] [place] Eosinophils (Bld) [#/Vol] 0.17 10*3/uL Normal <0.46 [facility] Comment on above: Order Comment: Speci men Type: BLOOD SPECIMENOrdering Facility: [facility] Address: [address] [place] [address] Performed By: #### 5 7021-8 ####[facility] LABORATORYCLIA [id number] [address] Eosinophils/100 WBC (Bld) 1.6 % Normal [facility] Comment on above: Order Comment: Speci men Type: BLOOD SPECIMENOrdering Facility: [facility] Address: [address] [place] [address] Performed By: #### 5 7021-8 ####[facility] LABORATORYCLIA [id number] [address] [place] Erythrocyte distribution width (RBC) [Ratio] 17.8 % High 11.5-15.0 [facility] Comment on above: Order Comment: Speci men Type: BLOOD SPECIMENOrdering Facility: [facility] Address: [address] [place] [address] Performed By: #### 5 7021-8 ####[facility] LABORATORYCLIA [id number] [address] Hematocrit (Bld) [Volume fraction] 29.6 % Low 39.0-51.0 [facility] Comment on above: Order Comment: Speci men Type: BLOOD SPECIMENOrdering Facility: [facility] Address: [address] [place] [address] Performed By: #### 5 7021-8 ####[facility] LABORATORYCLIA [id number] [address] Hemoglobin (Bld) [Mass/Vol] 9.0 g/dL Low 13.0-17.0 [facility] Comment on above: Order Comment: Speci men Type: BLOOD SPECIMENOrdering Facility: [facility] Address: [address] [place] [address] Performed By: #### 5 7021-8 ####[facility] LABORATORYCLIA [id number] [address] IMMATURE GRAN % 0.5 % Normal [facility] Comment on above: Order Comment: Speci men Type: BLOOD SPECIMENOrdering Facility: [facility] Address: [address] [place] [address] Performed By: #### 5 7021-8 ####[facility] LABORATORYCLIA [id number] [address] IMMATURE GRAN ABS 0.05 k/uL Normal <0.10 [facility] Comment on above: Order Comment: Speci men Type: BLOOD SPECIMENOrdering Facility: [facility] Address: [address] [place] [address] Performed By: #### 5 7021-8 ####[facility] LABORATORYCLIA [id number] [address] [place] Lymphocytes (Bld) [#/Vol] 1.93 10*3/uL Normal 1.00-4.00 [facility] Comment on above: Order Comment: Speci men Type: BLOOD SPECIMENOrdering Facility: [facility] Address: [address] [place] [address] Performed By: #### 5 7021-8 ####[facility] LABORATORYCLIA [id number] [address] Lymphocytes/100 WBC (Bld) 18.2 % Normal [facility] Comment on above: Order Comment: Speci men Type: BLOOD SPECIMENOrdering Facility: [facility] Address: [address] [place] [address] Performed By: #### 5 7021-8 ####[facility] LABORATORYCLIA [id number] [address] MCH (RBC) [Entitic mass] 28.1 pg Normal 26.0-34.0 [facility] Comment on above: Order Comment: Speci men Type: BLOOD SPECIMENOrdering Facility: [facility] Address: [address] [place] [address] Performed By: #### 5 7021-8 ####[facility] LABORATORYCLIA [id number] [address] MCHC (RBC) [Mass/Vol] 30.4 g/dL Low 30.5-36.0 [facility] Comment on above: Order Comment: Speci men Type: BLOOD SPECIMENOrdering Facility: [facility] Address: [address] [place] [address] Performed By: #### 5 7021-8 ####[facility] LABORATORYCLIA [id number] [address] [place] [facility] MCV (RBC) [Entitic vol] 92.5 fL Normal 80.0-100.0 [facility] Comment on above: Order Comment: Speci men Type: BLOOD SPECIMENOrdering Facility: [facility] Address: [address] [place] [address] Performed By: #### 5 7021-8 ####[facility] LABORATORYCLIA [id number] [place] [address] [place] Monocytes (Bld) [#/Vol] 0.75 10*3/uL Normal <0.87 [facility] Comment on above: Order Comment: Speci men Type: BLOOD SPECIMENOrdering Facility: [facility] Address: [address] [place] [address] Performed By: #### 5 7021-8 ####[facility] LABORATORYCLIA [id number] [place] [address] [place] Monocytes/100 WBC (Bld) 7.1 % Normal [facility] Comment on above: Order Comment: Speci men Type: BLOOD SPECIMENOrdering Facility: [facility] Address: [address] [place] [address] Performed By: #### 5 7021-8 ####[facility] LABORATORYCLIA [id number] [place] [address] [place] Neutrophils (Bld) [#/Vol] 7.65 10*3/uL High 1.45-7.50 [facility] Comment on above: Order Comment: Speci men Type: BLOOD SPECIMENOrdering Facility: [facility] Address: [address] [place] [address] Performed By: #### 5 7021-8 ####[facility] LABORATORYCLIA [id number] [address] [place] Neutrophils/100 WBC (Bld) 72.1 % Normal [facility] Comment on above: Order Comment: Speci men Type: BLOOD SPECIMENOrdering Facility: [facility] Address: [address] [place] [address] Performed By: #### 5 7021-8 ####[facility] LABORATORYCLIA [id number] [place] [address] [place] Nucleated RBC (Bld) [#/Vol] 10*3/uL Normal <0.01 [facility] Comment on above: Order Comment: Speci men Type: BLOOD SPECIMENOrdering Facility: [facility] Address: [address] [place] [address] Performed By: #### 5 7021-8 ####[facility] LABORATORYCLIA [id number] [address] Nucleated RBC/100 WBC (Bld) [Ratio] 0.0 /100 WBC Normal [facility] Comment on above: Order Comment: Speci men Type: BLOOD SPECIMENOrdering Facility: [facility] Address: [address] [place] [address] Performed By: #### 5 7021-8 ####[facility] LABORATORYCLIA [id number] [address] [place] Platelet mean volume (Bld) [Entitic vol] 9.8 fL Normal 9.0-12.7 [facility] Comment on above: Order Comment: Speci men Type: BLOOD SPECIMENOrdering Facility: [facility] Address: [address] [place] [address] Performed By: #### 5 7021-8 ####[facility] LABORATORYCLIA [id number] [address] [place] Platelets (Bld) [#/Vol] 175 10*3/uL Normal 150-400 [facility] Comment on above: Order Comment: Speci men Type: BLOOD SPECIMENOrdering Facility: [facility] Address: [address] [place] [address] Performed By: #### 5 7021-8 ####[facility] LABORATORYCLIA [id number] [address] [place] RBC (Bld) [#/Vol] 3.20 10*6/uL Low 4.20-6.00 [facility] Comment on above: Order Comment: Speci men Type: BLOOD SPECIMENOrdering Facility: [facility] Address: [address] [place] [address] Performed By: #### 5 7021-8 ####[facility] LABORATORYCLIA [id number] [address] [place] WBC (Bld) [#/Vol] 10.60 10*3/uL Normal 3.70-11.00 [facility] Comment on above: Order Comment: Speci men Type: BLOOD SPECIMENOrdering Facility: [facility] Address: [address] [place] [address] Performed By: #### 5 7021-8 ####[facility] LABORATORYCLIA [id number] [address] [place] CT BRAIN WO IVCONon 08-09-19 CT BRAIN WO IVCON Normal [facility] NURSING PROGon 08-08-2021 NURSING PROG Normal [facility] Prealbumin [Mass/Vol]on Prealbumin Nephelometry [Mass/Vol] 29 mg/dL Normal - [facility] Comment on above: Order Comment: Speci men Type: BLOOD SPECIMENOrdering Facility: [facility] Address: [address] [place] [address] Performed By: #### 1 4338-8 ####[facility] LABORATORYCLIA [id number] [address] OF [facility] SARS-CoV-2 RNA Resp Ql MEGAN+p robeon 08-08-2021 SARS-CoV-2 (COVID-19) RNA MEGAN+probe Ql (Resp) COVID 19 RESULT: SARS-CoV-2 (Agent of COVID-19) Not Detected by RT-PCR or equivalent method. This test has been authorized by FDA under an Emergency Use Authorization (EUA). Normal [facility] Comment on above: Performed By: #### 9 4500-6 ####[facility] LABORATORYCLIA [id number] [place] [address] [place] ALLIED HEALTHon 08-07-2021 ALLIED HEALTH Normal [facility] Basic metabolic 2000 panelon 08-07-2021 Anion gap [Moles/Vol] 9 mmol/L Normal 9-18 [facility] Comment on above: Order Comment: Speci men Type: BLOOD SPECIMENOrdering Facility: [facility] Address: [address] [place] [address] Performed By: #### 2 4321-2, 2776-05, , HFP ####[facility] LABORATORYCLIA [id number] [place] [address] [place] Calcium [Mass/Vol] 9.4 mg/dL Normal 8.5-10.2 [facility] Comment on above: Order Comment: Speci men Type: BLOOD SPECIMENOrdering Facility: [facility] Address: [address] [place] [address] Performed By: #### 2 4321-2, 2776-05, , HFP ####[facility] LABORATORYCLIA [id number] [place] [address] [place] Chloride [Moles/Vol] 98 mmol/L Normal 97-105 [facility] Comment on above: Order Comment: Speci men Type: BLOOD SPECIMENOrdering Facility: [facility] Address: [address] [place] [address] Performed By: #### 2 4321-2, 2776-05, , HFP ####[facility] LABORATORYCLIA [id number] [place] [address] [place] CO2 [Moles/Vol] 29 mmol/L Normal 22-30 [facility] Comment on above: Order Comment: Speci men Type: BLOOD SPECIMENOrdering Facility: [facility] Address: [address] [place] [address] Performed By: #### 2 4321-2, 2776-05, , HFP ####[facility] LABORATORYCLIA [id number] [place] [address] [place] Creatinine [Mass/Vol] 0.67 mg/dL Low 0.73-1.22 [facility] Comment on above: Order Comment: Speci men Type: BLOOD SPECIMENOrdering Facility: [facility] Address: [address] [place] [address] Performed By: #### 2 4321-2, 2776-05, , HFP ####[facility] LABORATORYCLIA [id number] [address] [place] ESTIMATED GLOMERULAR FILTRATION RATE 101 mL/min/1.73m??? Normal >=60 [facility] Comment on above: Order Comment: Shira feldman Type: BLOOD SPECIMENOrdering Facility: [facility] Address: [address] [place], [place] [address] Result Comment: Luzmaria mated Glomerular Filtration Rate [...] Performed By: #### 2 4321-2, 2777-, , [facility] ####[facility] LABORATORYCLIA [id number] [place] [address] [place] Glucose [Mass/Vol] 117 mg/dL High 74-99 [facility] Comment on above: Order Comment: Sihra feldman Type: BLOOD SPECIMENOrdering Facility: [facility] Address: [address] [place] [address] Result Comment: The [place] [employer] (ADA) provides guidance for cutoff [...] Standards of Medical Care in Diabetes 2016, [place] [employer]. Diabetes Care. 2016.39(Suppl 1). Performed By: #### 2 4321-2, 2777-, , [facility] ####[facility] LABORATORYCLIA [id number] [place] [address] [place] Potassium [Moles/Vol] 4.1 mmol/L Normal 3.7-5.1 [facility] Comment on above: Order Comment: Speci men Type: BLOOD SPECIMENOrdering Facility: [facility] Address: [address] [place], [place] [address] Performed By: #### 2 4321-2, 2776-05, , [facility] ####[facility] LABORATORYCLIA [id number] [place] [address] [place] Sodium [Moles/Vol] 136 mmol/L Normal 136-144 [facility] Comment on above: Order Comment: Speci men Type: BLOOD SPECIMENOrdering Facility: [facility] Address: [address] [place], [place] [address] Performed By: #### 2 4321-2, 2776-05, , [facility] ####[facility] LABORATORYCLIA [id number] [place] [address] [place] Urea nitrogen [Mass/Vol] 31 mg/dL High 9-24 [facility] Comment on above: Order Comment: Speci men Type: BLOOD SPECIMENOrdering Facility: [facility] Address: [address] [place] [address] Performed By: #### 2 4321-2, 2776-05, , [facility] ####[facility] LABORATORYCLIA [id number] [address] [place] CBC W Auto Differential pane l (Bld)on 08-07-2021 Basophils (Bld) [#/Vol] 0.03 10*3/uL Normal <0.11 [facility] Comment on above: Order Comment: Speci men Type: BLOOD SPECIMENOrdering Facility: [facility] Address: [address] [place] [address] Performed By: #### 5 7021-8 ####[facility] LABORATORYCLIA [id number] [address] [place] Basophils/100 WBC (Bld) 0.3 % Normal [facility] Comment on above: Order Comment: Speci men Type: BLOOD SPECIMENOrdering Facility: [facility] Address: [address] [address] Performed By: #### 5 7021-8 ####[facility]ORATORYCLIA [id number] [address] Differential cell count method Nom (Bld) Auto Normal [facility] Comment on above: Order Comment: Speci men Type: BLOOD SPECIMENOrdering Facility: [facility] Address: [address] [place] [address] Performed By: #### 5 7021-8 ####[facility] LABORATORYCLIA [id number] [address] [place] Eosinophils (Bld) [#/Vol] 0.16 10*3/uL Normal <0.46 [facility] Comment on above: Order Comment: Speci men Type: BLOOD SPECIMENOrdering Facility: [facility] Address: [address] [place] [address] Performed By: #### 5 7021-8 ####[facility] LABORATORYCLIA [id number] [address] Eosinophils/100 WBC (Bld) 1.6 % Normal [facility] Comment on above: Order Comment: Speci men Type: BLOOD SPECIMENOrdering Facility: [facility] Address: [address] [place] [address] Performed By: #### 5 7021-8 ####[facility] LABORATORYCLIA [id number] [address] Erythrocyte distribution width (RBC) [Ratio] 18.1 % High 11.5-15.0 [facility] Comment on above: Order Comment: Speci men Type: BLOOD SPECIMENOrdering Facility: [facility] Address: [address] [place] [address] Performed By: #### 5 7021-8 ####[facility] LABORATORYCLIA [id number] [address] [place] Hematocrit (Bld) [Volume fraction] 30.6 % Low 39.0-51.0 [facility] Comment on above: Order Comment: Speci men Type: BLOOD SPECIMENOrdering Facility: [facility] Address: [address] [place] [address] Performed By: #### 5 7021-8 ####[facility] LABORATORYCLIA [id number] [address] [place] Hemoglobin (Bld) [Mass/Vol] 9.4 g/dL Low 13.0-17.0 [facility] Comment on above: Order Comment: Speci men Type: BLOOD SPECIMENOrdering Facility: [facility] Address: [address] [place] [address] Performed By: #### 5 7021-8 ####[facility] LABORATORYCLIA [id number] [address] IMMATURE GRAN % 0.4 % Normal [facility] Comment on above: Order Comment: Speci men Type: BLOOD SPECIMENOrdering Facility: [facility] Address: [address] [place] [address] Performed By: #### 5 7021-8 ####[facility] LABORATORYCLIA [id number] [address] IMMATURE GRAN ABS 0.04 k/uL Normal <0.10 [facility] Comment on above: Order Comment: Speci men Type: BLOOD SPECIMENOrdering Facility: [facility] Address: [address] [place] [address] Performed By: #### 5 7021-8 ####[facility] LABORATORYCLIA [id number] [address] [place] Lymphocytes (Bld) [#/Vol] 2.05 10*3/uL Normal 1.00-4.00 [facility] Comment on above: Order Comment: Speci men Type: BLOOD SPECIMENOrdering Facility: [facility] Address: [address] [place] [address] Performed By: #### 5 7021-8 ####[facility] LABORATORYCLIA [id number] [address] Lymphocytes/100 WBC (Bld) 20.2 % Normal [facility] Comment on above: Order Comment: Speci men Type: BLOOD SPECIMENOrdering Facility: [facility] Address: [address] [place] [address] Performed By: #### 5 7021-8 ####[facility] LABORATORYCLIA [id number] [address] STATES OF [facility] MCH (RBC) [Entitic mass] 28.8 pg Normal 26.0-34.0 [facility] Comment on above: Order Comment: Speci men Type: BLOOD SPECIMENOrdering Facility: [facility] Address: [address] [place] [address] Performed By: #### 5 7021-8 ####[facility] LABORATORYCLIA [id number] [address] OF [facility] MCHC (RBC) [Mass/Vol] 30.7 g/dL Normal 30.5-36.0 [facility] Comment on above: Order Comment: Speci men Type: BLOOD SPECIMENOrdering Facility: [facility] Address: [address] [place] [address] Performed By: #### 5 7021-8 ####[facility] LABORATORYCLIA [id number] [address] MCV (RBC) [Entitic vol] 93.9 fL Normal 80.0-100.0 [facility] Comment on above: Order Comment: Speci men Type: BLOOD SPECIMENOrdering Facility: [facility] Address: [address] [place] [address] Performed By: #### 5 7021-8 ####[facility] LABORATORYCLIA [id number] [address] Monocytes (Bld) [#/Vol] 0.64 10*3/uL Normal <0.87 [facility] Comment on above: Order Comment: Speci men Type: BLOOD SPECIMENOrdering Facility: [facility] Address: [address] [place] [address] Performed By: #### 5 7021-8 ####[facility]ORATORYCLIA [id number] [address] [place] Monocytes/100 WBC (Bld) 6.3 % Normal [facility] Comment on above: Order Comment: Speci men Type: BLOOD SPECIMENOrdering Facility: [facility] Address: [address] [place] [address] Performed By: #### 5 7021-8 ####[facility]ORATORYCLIA [id number] [address] [place] Neutrophils (Bld) [#/Vol] 7.22 10*3/uL Normal 1.45-7.50 [facility] Comment on above: Order Comment: Speci men Type: BLOOD SPECIMENOrdering Facility: [facility] Address: [address] [place] [address] Performed By: #### 5 7021-8 ####[facility] LABORATORYCLIA [id number] [address] Neutrophils/100 WBC (Bld) 71.2 % Normal [facility] Comment on above: Order Comment: Speci men Type: BLOOD SPECIMENOrdering Facility: [facility] Address: [address] [place] [address] Performed By: #### 5 7021-8 ####[facility]ORATORYCLIA [id number] [address] [place] Nucleated RBC (Bld) [#/Vol] 10*3/uL Normal <0.01 [facility] Comment on above: Order Comment: Speci men Type: BLOOD SPECIMENOrdering Facility: [facility] Address: [address] [place] [address] Performed By: #### 5 7021-8 ####[facility]ATORYCLIA [id number] [address] [place] Nucleated RBC/100 WBC (Bld) [Ratio] 0.0 /100 WBC Normal [facility] Comment on above: Order Comment: Speci men Type: BLOOD SPECIMENOrdering Facility: [facility] Address: [address] [place], [place] [address] Performed By: #### 5 7021-8 ####[facility] LABORATORYCLIA [id number] [address] Platelet mean volume (Bld) [Entitic vol] 9.9 fL Normal 9.0-12.7 [facility] Comment on above: Order Comment: Speci men Type: BLOOD SPECIMENOrdering Facility: [facility] Address: [address] [place] [address] Performed By: #### 5 7021-8 ####[facility] LABORATORYCLIA [id number] [address] [place] Platelets (Bld) [#/Vol] 227 10*3/uL Normal 150-400 [facility] Comment on above: Order Comment: Speci men Type: BLOOD SPECIMENOrdering Facility: [facility] Address: [address] [place] [address] Performed By: #### 5 7021-8 ####[facility] LABORATORYCLIA [id number] [address] [place] RBC (Bld) [#/Vol] 3.26 10*6/uL Low 4.20-6.00 [facility] Comment on above: Order Comment: Speci men Type: BLOOD SPECIMENOrdering Facility: [facility] Address: [address] [place], [place] [address] Performed By: #### 5 7021-8 ####[facility] LABORATORYCLIA [id number] [address] [place] WBC (Bld) [#/Vol] 10.14 10*3/uL Normal 3.70-11.00 [facility] Comment on above: Order Comment: Speci men Type: BLOOD SPECIMENOrdering Facility: [facility] Address: [address] [place] [address] Performed By: #### 5 7021-8 ####[facility] LABORATORYCLIA [id number] [address] BRAIN WO IVCONon 08-08-19 CT BRAIN WO IVCON Normal [facility] HEPATIC FUNCTION PNLon 08-07 Albumin [Mass/Vol] 3.6 g/dL Low 3.9-4.9 [facility] Comment on above: Order Comment: Speci men Type: BLOOD SPECIMENOrdering Facility: [facility] Address: [address] [place] [address] Performed By: #### 2 4321-2, 2776-, , HFP ####[facility] LABORATORYCLIA [id number] [address] ALP [Catalytic activity/Vol] 124 U/L High 38-113 [facility] Comment on above: Order Comment: Speci men Type: BLOOD SPECIMENOrdering Facility: [facility] Address: [address] [place] [address] Performed By: #### 2 4321-2, 2776-05, , HFP ####[facility] LABORATORYCLIA [id number] [address] [place] OF [facility] ALT With P-5'-P [Catalytic activity/Vol] 29 U/L Normal 10-54 [facility] Comment on above: Order Comment: Speci men Type: BLOOD SPECIMENOrdering Facility: [facility] Address: [address] [place] [address] Performed By: #### 2 4321-2, 2776-05, , HFP ####[facility] LABORATORYCLIA [id number] [address] [place] With P-5'-P [Catalytic activity/Vol] 18 U/L Normal 14-40 [facility] Comment on above: Order Comment: Speci men Type: BLOOD SPECIMENOrdering Facility: [facility] Address: [address] [place] [address] Performed By: #### 2 4321-2, 277-, , HFP ####[facility] LABORATORYCLIA [id number] [address] [place] Bilirubin [Mass/Vol] 0.3 mg/dL Normal 0.2-1.3 [facility] Comment on above: Order Comment: Speci men Type: BLOOD SPECIMENOrdering Facility: [facility] Address: [address] [place] [address] Performed By: #### 2 4321-2, 2777-, , HFP ####[facility] LABORATORYCLIA [id number] [address] [place] Bilirubin.conjugated [Mass/Vol] mg/dL Normal <0.2 [facility] Comment on above: Order Comment: Speci men Type: BLOOD SPECIMENOrdering Facility: [facility] Address: [address] [place] [address] Performed By: #### 2 4321-2, 27711-04, , HFP ####[facility] LABORATORYCLIA [id number] [address] STATES OF [facility] Protein [Mass/Vol] 6.4 g/dL Normal 6.3-8.0 [facility] Comment on above: Order Comment: Speci men Type: BLOOD SPECIMENOrdering Facility: [facility] Address: [address] [place] [address] Performed By: #### 2 4321-2, 27711-04, , HFP ####[facility] LABORATORYCLIA [id number] [address] [place] Magnesium SerPl-mCncon 08-07 Magnesium [Mass/Vol] 2.3 mg/dL Normal 1.7-2.3 [facility] Comment on above: Order Comment: Speci men Type: BLOOD SPECIMENOrdering Facility: [facility] Address: [address] [place] [address] Performed By: #### 2 4321-2, 277-1, , HFP ####[facility] LABORATORYCLIA [id number] [address] [place] NURSING PROGon 08-07-2021 NURSING PROG Normal [facility] Phosphate SerPl-mCncon 08-07 Phosphate [Mass/Vol] 3.5 mg/dL Normal 2.7-4.8 [facility] Comment on above: Order Comment: Speci men Type: BLOOD SPECIMENOrdering Facility: [facility] Address: [address] [place] [address] Performed By: #### 2 4321-2, 277-1, , HFP ####[facility] LABORATORYCLIA [id number] [address] [place] ANES POSTPROC EVALon 022 ANES POSTPROC EVAL Normal [facility] Basic metabolic 2000 panelon 08-06-2021 Anion gap [Moles/Vol] 11 mmol/L Normal 9-18 [facility] Comment on above: Order Comment: Speci men Type: BLOOD SPECIMENOrdering Facility: [facility] Address: [address] [place] [address] Performed By: #### 2 4321-2, 2776-05, ####[facility] LABORATORYCLIA [id number] [place] [address] [place] Calcium [Mass/Vol] 8.2 mg/dL Low 8.5-10.2 [facility] Comment on above: Order Comment: Speci men Type: BLOOD SPECIMENOrdering Facility: [facility] Address: [address] [place] [address] Performed By: #### 2 4321-2, 2776-, ####[facility] LABORATORYCLIA [id number] [place] [address] [place] Chloride [Moles/Vol] 100 mmol/L Normal 97-105 [facility] Comment on above: Order Comment: Speci men Type: BLOOD SPECIMENOrdering Facility: [facility] Address: [address] [place] [address] Performed By: #### 2 4321-2, 2776-05, ####[facility] LABORATORYCLIA [id number] [place] [address] [place] CO2 [Moles/Vol] 23 mmol/L Normal 22-30 [facility] Comment on above: Order Comment: Speci men Type: BLOOD SPECIMENOrdering Facility: [facility] Address: [address] [place] [address] Performed By: #### 2 4321-2, 2776-05, ####[facility] LABORATORYCLIA [id number] [place] [address] [place] [facility] Creatinine [Mass/Vol] 0.55 mg/dL Low 0.73-1.22 [facility] Comment on above: Order Comment: Speci men Type: BLOOD SPECIMENOrdering Facility: [facility] Address: [address] [place] [address] Performed By: #### 2 432-2, 2776-05, ####[facility] HOSPITALIA [id number] [address] STATES OF [facility] ESTIMATED GLOMERULAR FILTRATION RATE 107 mL/min/1.73m??? Normal >=60 [facility] Comment on above: Order Comment: Speci men Type: BLOOD SPECIMENOrdering Facility: [facility] Address: [address] [place] [address] Result Comment: Luzmaria mated Glomerular Filtration Rate [...] GFR. Performed By: #### 2 4321-2, 2776-05, ####[facility] LABORATORYCLIA [id number] [place] [address] [place] Glucose [Mass/Vol] 275 mg/dL High 74-99 [facility] Comment on above: Order Comment: Speci men Type: BLOOD SPECIMENOrdering Facility: [facility] Address: [address] [place], [place] [phone] Result Comment: The [place] Diabetes Association (ADA) provides guidance for cutoff [...] Standards of Medical Care in Diabetes 2016, [place] [employer]. Diabetes Care. 2016.39(Suppl 1). Performed By: #### 2 4321-2, 2776-05, ####[facility] LABORATORYCLIA [id number] [place] [address] [place] Potassium [Moles/Vol] 3.6 mmol/L Low 3.7-5.1 [facility] Comment on above: Order Comment: Shira feldman Type: BLOOD SPECIMENOrdering Facility: [facility] Address: [address] [place], [place] [phone] Performed By: #### 2 4321-2, 2776-05, ####[facility] LABORATORYCLIA [id number] [place] [address] [place] Sodium [Moles/Vol] 134 mmol/L Low 136-144 [facility] Comment on above: Order Comment: Johni men Type: BLOOD SPECIMENOrdering Facility: [facility] Address: [address] [id number] Performed By: #### 2 4321-2, 2776-05, ####[facility] LABORATORYCLIA [id number] [place] [address] [place] Urea nitrogen [Mass/Vol] 29 mg/dL High 9-24 [facility] Comment on above: Order Comment: Speci men Type: BLOOD SPECIMENOrdering Facility: [facility] Address: [address] [place] [address] Performed By: #### 2 4321-2, 2777-1, 56703-5 ####[facility] LABORATORYCLIA [id number] [address] STATES OF [facility] CBC W Auto Differential pane l (Bld)on 08-06-2021 Basophils (Bld) [#/Vol] 0.03 10*3/uL Normal <0.11 [facility] Comment on above: Order Comment: Speci men Type: BLOOD SPECIMENOrdering Facility: [facility] Address: [address] [place] [address] Performed By: #### 5 7021-8 ####[facility] LABORATORYCLIA [id number] [address] [place] Basophils/100 WBC (Bld) 0.3 % Normal [facility] Comment on above: Order Comment: Speci men Type: BLOOD SPECIMENOrdering Facility: [facility] Address: [address] [place] [address] Performed By: #### 5 7021-8 ####[facility] LABORATORYCLIA [id number] [address] Differential cell count method Nom (Bld) Auto Normal [facility] Comment on above: Order Comment: Speci men Type: BLOOD SPECIMENOrdering Facility: [facility] Address: [address] [place] [address] Performed By: #### 5 7021-8 ####[facility] LABORATORYCLIA [id number] [address] [place] Eosinophils (Bld) [#/Vol] 0.18 10*3/uL Normal <0.46 [facility] Comment on above: Order Comment: Speci men Type: BLOOD SPECIMENOrdering Facility: [facility] Address: [address] [place] [address] Performed By: #### 5 7021-8 ####[facility]ORATORYCLIA [id number] [address] Eosinophils/100 WBC (Bld) 1.6 % Normal [facility] Comment on above: Order Comment: Speci men Type: BLOOD SPECIMENOrdering Facility: [facility] Address: [address] [place] [address] Performed By: #### 5 7021-8 ####[facility] LABORATORYCLIA [id number] [address] Erythrocyte distribution width (RBC) [Ratio] 17.9 % High 11.5-15.0 [facility] Comment on above: Order Comment: Speci men Type: BLOOD SPECIMENOrdering Facility: [facility] Address: [address] [place] [address] Performed By: #### 5 7021-8 ####[facility] LABORATORYCLIA [id number] [address] Hematocrit (Bld) [Volume fraction] 27.6 % Low 39.0-51.0 [facility] Comment on above: Order Comment: Speci men Type: BLOOD SPECIMENOrdering Facility: [facility] Address: [address] [place] [address] Performed By: #### 5 7021-8 ####[facility] LABORATORYCLIA [id number] [address] [place] Hemoglobin (Bld) [Mass/Vol] 8.5 g/dL Low 13.0-17.0 [facility] Comment on above: Order Comment: Speci men Type: BLOOD SPECIMENOrdering Facility: [facility] Address: [address] [place] [address] Performed By: #### 5 7021-8 ####[facility] LABORATORYCLIA [id number] [address] IMMATURE GRAN % 0.6 % Normal [facility] Comment on above: Order Comment: Speci men Type: BLOOD SPECIMENOrdering Facility: [facility] Address: [address] [place] [address] Performed By: #### 5 7021-8 ####[facility] LABORATORYCLIA [id number] [address] IMMATURE GRAN ABS 0.07 k/uL Normal <0.10 [facility] Comment on above: Order Comment: Speci men Type: BLOOD SPECIMENOrdering Facility: [facility] Address: [address] [place] [address] Performed By: #### 5 7021-8 ####[facility] LABORATORYCLIA [id number] [address] Lymphocytes (Bld) [#/Vol] 1.81 10*3/uL Normal 1.00-4.00 [facility] Comment on above: Order Comment: Speci men Type: BLOOD SPECIMENOrdering Facility: [facility] Address: [address] [place] [address] Performed By: #### 5 7021-8 ####[facility] LABORATORYCLIA [id number] [address] Lymphocytes/100 WBC (Bld) 15.7 % Normal [facility] Comment on above: Order Comment: Speci men Type: BLOOD SPECIMENOrdering Facility: [facility] Address: [address] [place] [address] Performed By: #### 5 7021-8 ####[facility] LABORATORYCLIA [id number] [address] MCH (RBC) [Entitic mass] 28.6 pg Normal 26.0-34.0 [facility] Comment on above: Order Comment: Speci men Type: BLOOD SPECIMENOrdering Facility: [facility] Address: [address] [place] [address] Performed By: #### 5 7021-8 ####[facility] LABORATORYCLIA [id number] [address] MCHC (RBC) [Mass/Vol] 30.8 g/dL Normal 30.5-36.0 [facility] Comment on above: Order Comment: Speci men Type: BLOOD SPECIMENOrdering Facility: [facility] Address: [address] [place] [address] Performed By: #### 5 7021-8 ####[facility] LABORATORYCLIA [id number] [address] [place] MCV (RBC) [Entitic vol] 92.9 fL Normal 80.0-100.0 [facility] Comment on above: Order Comment: Speci men Type: BLOOD SPECIMENOrdering Facility: [facility] Address: [address] [place] [address] Performed By: #### 5 7021-8 ####[facility] LABORATORYCLIA [id number] [address] [place] Monocytes (Bld) [#/Vol] 0.63 10*3/uL Normal <0.87 [facility] Comment on above: Order Comment: Speci men Type: BLOOD SPECIMENOrdering Facility: [facility] Address: [address] [place] [address] Performed By: #### 5 7021-8 ####[facility] LABORATORYCLIA [id number] [address] [facility] Monocytes/100 WBC (Bld) 5.5 % Normal [facility] Comment on above: Order Comment: Speci men Type: BLOOD SPECIMENOrdering Facility: [facility] Address: [address] [place] [address] Performed By: #### 5 7021-8 ####[facility] LABORATORYCLIA [id number] [address] [place] Neutrophils (Bld) [#/Vol] 8.78 10*3/uL High 1.45-7.50 [facility] Comment on above: Order Comment: Speci men Type: BLOOD SPECIMENOrdering Facility: [facility] Address: [address] [place] [address] Performed By: #### 5 7021-8 ####[facility] LABORATORYCLIA [id number] [address] Neutrophils/100 WBC (Bld) 76.3 % Normal [facility] Comment on above: Order Comment: Speci men Type: BLOOD SPECIMENOrdering Facility: [facility] Address: [address] [address] Performed By: #### 5 7021-8 ####[facility] LABORATORYCLIA [id number] [address] [place] Nucleated RBC (Bld) [#/Vol] 10*3/uL Normal <0.01 [facility] Comment on above: Order Comment: Speci men Type: BLOOD SPECIMENOrdering Facility: [facility] Address: [address] [place] [address] Performed By: #### 5 7021-8 ####[facility] LABORATORYCLIA [id number] [address] Nucleated RBC/100 WBC (Bld) [Ratio] 0.0 /100 WBC Normal [facility] Comment on above: Order Comment: Speci men Type: BLOOD SPECIMENOrdering Facility: [facility] Address: [address] [place] [address] Performed By: #### 5 7021-8 ####[facility] LABORATORYCLIA [id number] [address] Platelet mean volume (Bld) [Entitic vol] 9.9 fL Normal 9.0-12.7 [facility] Comment on above: Order Comment: Speci men Type: BLOOD SPECIMENOrdering Facility: [facility] Address: [address] Performed By: #### 5 7021-8 ####[facility] LABORATORYCLIA [id number] [address] [place] Platelets (Bld) [#/Vol] 230 10*3/uL Normal 150-400 [facility] Comment on above: Order Comment: Speci men Type: BLOOD SPECIMENOrdering Facility: [facility] Address: [address] [place], [place] [address] Performed By: #### 5 7021-8 ####[facility] LABORATORYCLIA [id number] [address] OF [facility] RBC (Bld) [#/Vol] 2.97 10*6/uL Low 4.20-6.00 [facility] Comment on above: Order Comment: Speci men Type: BLOOD SPECIMENOrdering Facility: [facility] Address: [address] [place] [address] Performed By: #### 5 7021-8 ####[facility] LABORATORYCLIA [id number] [address] WBC (Bld) [#/Vol] 11.50 10*3/uL High 3.70-11.00 [facility] Comment on above: Order Comment: Speci men Type: BLOOD SPECIMENOrdering Facility: [facility] Address: [address] [place] [address] Performed By: #### 5 7021-8 ####[facility] LABORATORYCLIA [id number] [address] CONSULT PROGon 08-06-2021 CONSULT PROG Normal [facility] Magnesium SerPl-mCncon 08-06 Magnesium [Mass/Vol] 1.9 mg/dL Normal 1.7-2.3 [facility] Comment on above: Order Comment: Speci men Type: BLOOD SPECIMENOrdering Facility: [facility] Address: [address] [place] [address] Performed By: #### 2 4321-2, 2777-1, 76577-4 ####[facility] LABORATORYCLIA [id number] [address] NURSING PROGon 08-06-2021 NURSING PROG Normal [facility] OPERATIVE NOon 08-06-2021 OPERATIVE NO Normal [facility] Phosphate SerPl-mCncon 08-06 Phosphate [Mass/Vol] 4.2 mg/dL Normal 2.7-4.8 [facility] Comment on above: Order Comment: Speci men Type: BLOOD SPECIMENOrdering Facility: [facility] Address: [address] [place] [address] Performed By: #### 2 4321-2, 2777-1, 27613-1 ####[facility] LABORATORYCLIA [id number] [place] [address] [place] ALLIED HEALTHon 08-05-2021 ALLIED HEALTH Normal [facility] ALLIED HEALTH Normal [facility] ANES PRE-OPon 08-05-2021 ANES PRE-OP Normal [facility] BRIEF OP NOTon 08-05-2021 BRIEF OP NOT Normal [facility] Bacteria Spec Resp Culton Bacteria identified Respiratory culture Nom (Unsp spec) CULTURE, RESPIRATORY: Few Normal respiratory chris present ORGANISM ID: 1 Few Proteus species Insignificant colony count. No further workup. GRAM STAIN: No organisms seen Few Polymorphonuclear leukocytes Few Epithelial cells Abnormal [facility] Comment on above: Performed By: #### 3 2355-0 ####[facility] LABORATORYCLIA [id number] [place] [address] [place] Bacteria Ur Culton Bacteria identified Cx Nom (U) CULTURE, URINE: No growth (<1,000 CFU/ml) Normal [facility] Comment on above: Performed By: #### 6 30-4 ####[facility] LABORATORYCLIA [id number] [place] [address] [place] Basic metabolic 2000 panelon 08-05-2021 Anion gap [Moles/Vol] 7 mmol/L Low 9-18 [facility] Comment on above: Order Comment: Speci men Type: BLOOD SPECIMENOrdering Facility: [facility] Address: [address] [place] [address] Performed By: #### 2 4321-2 ####[facility] LABORATORYCLIA [id number] [place] [address] [place] Calcium [Mass/Vol] 9.5 mg/dL Normal 8.5-10.2 [facility] Comment on above: Order Comment: Speci men Type: BLOOD SPECIMENOrdering Facility: [facility] Address: [address] [address] Performed By: #### 2 4321-2 ####[facility] LABORATORYCLIA [id number] [address] [place] Chloride [Moles/Vol] 97 mmol/L Normal 97-105 [facility] Comment on above: Order Comment: Speci men Type: BLOOD SPECIMENOrdering Facility: [facility] Address: [address] [place] [address] Performed By: #### 2 4321-2 ####[facility] LABORATORYCLIA [id number] [address] [place] CO2 [Moles/Vol] 30 mmol/L Normal 22-30 [facility] Comment on above: Order Comment: Speci men Type: BLOOD SPECIMENOrdering Facility: [facility] Address: [address] [place] [address] Performed By: #### 2 4321-2 ####[facility] LABORATORYCLIA [id number] [address] STATES OF [facility] Creatinine [Mass/Vol] 0.61 mg/dL Low 0.73-1.22 [facility] Comment on above: Order Comment: Speci men Type: BLOOD SPECIMENOrdering Facility: [facility] Address: [address] [place] [address] Performed By: #### 2 4321-2 ####[facility] LABORATORYCLIA [id number] [address] ESTIMATED GLOMERULAR FILTRATION RATE 104 mL/min/1.73m??? Normal >=60 [facility] Comment on above: Order Comment: Speci men Type: BLOOD SPECIMENOrdering Facility: [facility] Address: [address] [place] [address] Result Comment: Luzmaria mated Glomerular Filtration Rate [...] actual GFR. Performed By: #### 2 4321-2 ####[facility] LABORATORYCLIA [id number] [place] [address] [place] Glucose [Mass/Vol] 124 mg/dL High 74-99 [facility] Comment on above: Order Comment: Shira feldman Type: BLOOD SPECIMENOrdering Facility: [facility] Address: [address] [place] [address] Result Comment: The [place] Diabetes [employer] (ADA) provides guidance for cutoff [...] Standards of Medical Care in Diabetes 2016, [place] [employer]. Diabetes Care. 2016.39(Suppl 1). Performed By: #### 2 4321-2 ####[facility] LABORATORYCLIA [id number] [place] [address] [place] Potassium [Moles/Vol] 4.9 mmol/L Normal 3.7-5.1 [facility] Comment on above: Order Comment: Shira feldman Type: BLOOD SPECIMENOrdering Facility: [facility] Address: [address] [address] Performed By: #### 2 4321-2 ####[facility] LABORATORYCLIA [id number] [place] [address] [place] Sodium [Moles/Vol] 134 mmol/L Low 136-144 [facility] Comment on above: Order Comment: Shira feldman Type: BLOOD SPECIMENOrdering Facility: [facility] Address: [address] [address] Performed By: #### 2 4321-2 ####[facility] LABORATORYCLIA [id number] [place] [address] [place] Urea nitrogen [Mass/Vol] 40 mg/dL High 9-24 [facility] Comment on above: Order Comment: Speci men Type: BLOOD SPECIMENOrdering Facility: [facility] Address: [address] [place] [address] Performed By: #### 2 4321-2 ####[facility] LABORATORYCLIA [id number] [address] [place] CBC W Auto Differential pane l (Bld)on 08-05-2021 Basophils (Bld) [#/Vol] 0.04 10*3/uL Normal <0.11 [facility] Comment on above: Order Comment: Speci men Type: BLOOD SPECIMENOrdering Facility: [facility] Address: [address] [place] [address] Performed By: #### 5 7021-8 ####[facility] LABORATORYCLIA [id number] [address] [place] Basophils/100 WBC (Bld) 0.3 % Normal [facility] Comment on above: Order Comment: Speci men Type: BLOOD SPECIMENOrdering Facility: [facility] Address: [address] [place] [address] Performed By: #### 5 7021-8 ####[facility] LABORATORYCLIA [id number] [address] Differential cell count method Nom (Bld) Auto Normal [facility] Comment on above: Order Comment: Speci men Type: BLOOD SPECIMENOrdering Facility: [facility] Address: [address] [place] [address] Performed By: #### 5 7021-8 ####[facility] LABORATORYCLIA [id number] [place] [address] [place] Eosinophils (Bld) [#/Vol] 0.42 10*3/uL Normal <0.46 [facility] Comment on above: Order Comment: Speci men Type: BLOOD SPECIMENOrdering Facility: [facility] Address: [address] [place] [address] Performed By: #### 5 7021-8 ####[facility] LABORATORYCLIA [id number] [address] Eosinophils/100 WBC (Bld) 3.6 % Normal [facility] Comment on above: Order Comment: Speci men Type: BLOOD SPECIMENOrdering Facility: [facility] Address: [address] [place] [address] Performed By: #### 5 7021-8 ####[facility] LABORATORYCLIA [id number] [address] Erythrocyte distribution width (RBC) [Ratio] 17.9 % High 11.5-15.0 [facility] Comment on above: Order Comment: Speci men Type: BLOOD SPECIMENOrdering Facility: [facility] Address: [address] [place] [address] Performed By: #### 5 7021-8 ####[facility] LABORATORYCLIA [id number] [address] Hematocrit (Bld) [Volume fraction] 30.8 % Low 39.0-51.0 [facility] Comment on above: Order Comment: Speci men Type: BLOOD SPECIMENOrdering Facility: [facility] Address: [address] [place] [address] Performed By: #### 5 7021-8 ####[facility] LABORATORYCLIA [id number] [address] Hemoglobin (Bld) [Mass/Vol] 9.6 g/dL Low 13.0-17.0 [facility] Comment on above: Order Comment: Speci men Type: BLOOD SPECIMENOrdering Facility: [facility] Address: [address] [place] [address] Performed By: #### 5 7021-8 ####[facility] LABORATORYCLIA [id number] [address] IMMATURE GRAN % 0.5 % Normal [facility] Comment on above: Order Comment: Speci men Type: BLOOD SPECIMENOrdering Facility: [facility] Address: [address] [place] [address] Performed By: #### 5 7021-8 ####[facility] LABORATORYCLIA [id number] [address] STATES OF [facility] IMMATURE GRAN ABS 0.06 k/uL Normal <0.10 [facility] Comment on above: Order Comment: Speci men Type: BLOOD SPECIMENOrdering Facility: [facility] Address: [address] [place] [address] Performed By: #### 5 7021-8 ####[facility] LABORATORYCLIA [id number] [address] Lymphocytes (Bld) [#/Vol] 2.17 10*3/uL Normal 1.00-4.00 [facility] Comment on above: Order Comment: Speci men Type: BLOOD SPECIMENOrdering Facility: [facility] Address: [address] [place] [address] Performed By: #### 5 7021-8 ####[facility] LABORATORYCLIA [id number] [address] Lymphocytes/100 WBC (Bld) 18.7 % Normal [facility] Comment on above: Order Comment: Speci men Type: BLOOD SPECIMENOrdering Facility: [facility] Address: [address] [place] [address] Performed By: #### 5 7021-8 ####[facility] LABORATORYCLIA [id number] [place] [address] [place] MCH (RBC) [Entitic mass] 28.9 pg Normal 26.0-34.0 [facility] Comment on above: Order Comment: Speci men Type: BLOOD SPECIMENOrdering Facility: [facility] Address: [address] [place] [address] Performed By: #### 5 7021-8 ####[facility]ORATORYCLIA [id number] [address] STATES OF [facility] MCHC (RBC) [Mass/Vol] 31.2 g/dL Normal 30.5-36.0 [facility] Comment on above: Order Comment: Speci men Type: BLOOD SPECIMENOrdering Facility: [facility] Address: [address] [place] [address] Performed By: #### 5 7021-8 ####[facility] LABORATORYCLIA [id number] [address] [place] MCV (RBC) [Entitic vol] 92.8 fL Normal 80.0-100.0 [facility] Comment on above: Order Comment: Speci men Type: BLOOD SPECIMENOrdering Facility: [facility] Address: [address] [place] [address] Performed By: #### 5 7021-8 ####[facility] LABORATORYCLIA [id number] [address] Monocytes (Bld) [#/Vol] 0.71 10*3/uL Normal <0.87 [facility] Comment on above: Order Comment: Speci men Type: BLOOD SPECIMENOrdering Facility: [facility] Address: [address] [place] [address] Performed By: #### 5 7021-8 ####[facility] LABORATORYCLIA [id number] [address] Monocytes/100 WBC (Bld) 6.1 % Normal [facility] Comment on above: Order Comment: Speci men Type: BLOOD SPECIMENOrdering Facility: [facility] Address: [address] [place] [address] Performed By: #### 5 7021-8 ####[facility] LABORATORYCLIA [id number] [address] [place] Neutrophils (Bld) [#/Vol] 8.19 10*3/uL High 1.45-7.50 [facility] Comment on above: Order Comment: Speci men Type: BLOOD SPECIMENOrdering Facility: [facility] Address: [address] [address] Performed By: #### 5 7021-8 ####[facility] LABORATORYCLIA [id number] [address] Neutrophils/100 WBC (Bld) 70.8 % Normal [facility] Comment on above: Order Comment: Speci men Type: BLOOD SPECIMENOrdering Facility: [facility] Address: [address] [place] [address] Performed By: #### 5 7021-8 ####[facility] LABORATORYCLIA [id number] [address] [place] Nucleated RBC (Bld) [#/Vol] 10*3/uL Normal <0.01 [facility] Comment on above: Order Comment: Speci men Type: BLOOD SPECIMENOrdering Facility: [facility] Address: [address] [place] [address] Performed By: #### 5 7021-8 ####[facility] LABORATORYCLIA [id number] [address] [place] Nucleated RBC/100 WBC (Bld) [Ratio] 0.0 /100 WBC Normal [facility] Comment on above: Order Comment: Speci men Type: BLOOD SPECIMENOrdering Facility: [facility] Address: [address] [place] [address] Performed By: #### 5 7021-8 ####[facility] LABORATORYCLIA [id number] [place] [address] [place] Platelet mean volume (Bld) [Entitic vol] 9.6 fL Normal 9.0-12.7 [facility] Comment on above: Order Comment: Speci men Type: BLOOD SPECIMENOrdering Facility: [facility] Address: [address] [place] [address] Performed By: #### 5 7021-8 ####[facility] LABORATORYCLIA [id number] [place] [address] [place] Platelets (Bld) [#/Vol] 339 10*3/uL Normal 150-400 [facility] Comment on above: Order Comment: Speci men Type: BLOOD SPECIMENOrdering Facility: [facility] Address: [address] [place] [address] Performed By: #### 5 7021-8 ####[facility] LABORATORYCLIA [id number] [address] STATES OF [facility] RBC (Bld) [#/Vol] 3.32 10*6/uL Low 4.20-6.00 [facility] Comment on above: Order Comment: Speci men Type: BLOOD SPECIMENOrdering Facility: [facility] Address: [address] [place] [address] Performed By: #### 5 7021-8 ####[facility] LABORATORYCLIA [id number] [address] OF [facility] WBC (Bld) [#/Vol] 11.59 10*3/uL High 3.70-11.00 [facility] Comment on above: Order Comment: Speci men Type: BLOOD SPECIMENOrdering Facility: [facility] Address: [address] [place] [address] Performed By: #### 5 7021-8 ####[facility] LABORATORYCLIA [id number] [address] BRAIN WO IVCONon 08-06-19 CT BRAIN WO IVCON Normal [facility] Magnesium SerPl-mCncon 08-05 Magnesium [Mass/Vol] 2.2 mg/dL Normal 1.7-2.3 [facility] Comment on above: Order Comment: Speci men Type: BLOOD SPECIMENOrdering Facility: [facility] Address: [address] [place] [address] Performed By: #### 1 9123-9, 2777-1 ####[facility] LABORATORYCLIA [id number] [address] OF [facility] NURSING PROGon 08-05-2021 NURSING PROG Normal [facility] NURSING PROG Normal [facility] NUTRITIONon 08-05-2021 NUTRITION Normal [facility] OPERATIVE NOon 08-05-2021 OPERATIVE NO Normal [facility] Phosphate SerPl-mCncon 08-05 Phosphate [Mass/Vol] 4.6 mg/dL Normal 2.7-4.8 [facility] Comment on above: Order Comment: Speci men Type: BLOOD SPECIMENOrdering Facility: [facility] Address: [address] [place] [address] Performed By: #### 1 9123-9, 2777-1 ####[facility] LABORATORYCLIA [id number] [address] [place] THERAPY NTon 08-05-2021 THERAPY NT Normal [facility] THERAPY NT Normal [facility] Urinalysis complete panel (U )on 08-05-2021 Bilirubin Ql (U) Negative Normal Negative [facility] Comment on above: Order Comment: Speci men Type: URINE SPECIMENOrdering Facility: [facility] Address: [address] [place] [address] Performed By: #### 2 4356-8 ####[facility] H[facility]PITALCLIA [id number] [address] [place] Clarity (Unsp spec) Clear Normal Clear [facility] Comment on above: Order Comment: Speci men Type: URINE SPECIMENOrdering Facility: [facility] Address: [address] [place] [address] Performed By: #### 2 4356-8 ####[facility] LABORATORYCLIA [id number] [address] [place] Color (U) Light Yellow Normal yellow [facility] Comment on above: Order Comment: Speci men Type: URINE SPECIMENOrdering Facility: [facility] Address: [address] [place] [address] Performed By: #### 2 4356-8 ####[facility] LABORATORYCLIA [id number] [address] [place] Epithelial cells LM.HPF (Urine sed) [#/Area] Few Abnormal None Seen [facility] Comment on above: Order Comment: Speci men Type: URINE SPECIMENOrdering Facility: [facility] Address: [address] [place] [address] Performed By: #### 2 4356-8 ####[facility] LABORATORYCLIA [id number] [address] [place] Glucose Test strip (U) [Mass/Vol] Negative Normal Negative [facility] Comment on above: Order Comment: Speci men Type: URINE SPECIMENOrdering Facility: [facility] Address: [address] [place] [address] Performed By: #### 2 4356-8 ####[facility] LABORATORYCLIA [id number] [address] STATES OF [facility] Hemoglobin Ql (U) Negative Normal Negative [facility] Comment on above: Order Comment: Speci men Type: URINE SPECIMENOrdering Facility: [facility] Address: [address] [place] [address] Performed By: #### 2 4356-8 ####[facility] LABORATORYCLIA [id number] [address] STATES OF [facility] Hyaline casts (Urine sed) [#/Area] 1-3 /LPF Abnormal 0 /LPF [facility] Comment on above: Order Comment: Speci men Type: URINE SPECIMENOrdering Facility: [facility] Address: [address] [place] [address] Performed By: #### 2 4356-8 ####[facility] LABORATORYCLIA [id number] [address] [place] Ketones Ql (U) Negative Normal Negative [facility] Comment on above: Order Comment: Speci men Type: URINE SPECIMENOrdering Facility: [facility] Address: [address] [place] [address] Performed By: #### 2 4356-8 ####[facility] LABORATORYCLIA [id number] [address] [place] Leukocyte esterase Test strip Ql (U) Negative Normal Negative [facility] Comment on above: Order Comment: Speci men Type: URINE SPECIMENOrdering Facility: [facility] Address: [address] [place] [address] Performed By: #### 2 4356-8 ####[facility] LABORATORYCLIA [id number] [address] [place] Nitrite Ql (U) Negative Normal Negative [facility] Comment on above: Order Comment: Speci men Type: URINE SPECIMENOrdering Facility: [facility] Address: [address] [place] [address] Performed By: #### 2 4356-8 ####[facility] LABORATORYCLIA [id number] [address] pH (U) 6.0 [pH] Normal 5.0-8.0 [facility] Comment on above: Order Comment: Speci men Type: URINE SPECIMENOrdering Facility: [facility] Address: [address] [place] [address] Performed By: #### 2 4356-8 ####[facility] LABORATORYCLIA [id number] [address] [facility] Protein (U) [Mass/Vol] Negative Normal Negative [facility] Comment on above: Order Comment: Speci men Type: URINE SPECIMENOrdering Facility: [facility] Address: [address] [place] [address] Performed By: #### 2 4356-8 ####[facility] LABORATORYCLIA [id number] [address] [place] RBC LM.HPF (Urine sed) [#/Area] 0-3 /HPF Normal 0-3 /HPF [facility] Comment on above: Order Comment: Speci men Type: URINE SPECIMENOrdering Facility: [facility] Address: [address] [place] [address] Performed By: #### 2 4356-8 ####[facility] LABORATORYCLIA [id number] [address] [place] Specific gravity (U) [Rel density] 1.015 Normal 1.005-1.030 [facility] Comment on above: Order Comment: Speci men Type: URINE SPECIMENOrdering Facility: [facility] Address: [address] [place] [address] Performed By: #### 2 4356-8 ####[facility] LABORATORYCLIA [id number] [address] [place] Urobilinogen Ql (U) Normal Normal Negative [facility] Comment on above: Order Comment: Speci men Type: URINE SPECIMENOrdering Facility: [facility] Address: [address] [place] [address] Performed By: #### 2 4356-8 ####[facility] LABORATORYCLIA [id number] [address] [place] WBC LM.HPF (Urine sed) [#/Area] 0-5 /HPF Normal 0-5 /HPF [facility] Comment on above: Order Comment: Speci men Type: URINE SPECIMENOrdering Facility: [facility] Address: [address] [place] [address] Performed By: #### 2 4356-8 ####[facility] LABORATORYCLIA [id number] [address] [place] XR ABDOMEN 1V SUPINEon 08-05 XR ABDOMEN 1V SUPINE Normal [facility] XR CHEST 1V FRONTALon 2021 XR CHEST 1V FRONTAL Normal [facility] XR CHEST 1V FRONTAL Normal [facility] XR NECK SOFT TISSUE 2V AP/LA Ton 08-05-2021 XR NECK SOFT TISSUE 2V AP/LAT Normal [facility] XR SKULL 2V AP/LATon 022 XR SKULL 2V AP/LAT Normal [facility] ALLIED HEALTHon 08-04-2021 ALLIED HEALTH Normal [facility] Bacteria Bld Culton 08-05-19 22 Bacteria identified Cx Nom (Bld) CULTURE, BLOOD: No growth 5 days Normal [facility] Comment on above: Performed By: #### 6 00-7 ####[facility] LABORATORYCLIA [id number] [address] Bacteria identified Cx Nom (Bld) CULTURE, BLOOD: No growth 5 days Normal [facility] Comment on above: Performed By: #### 6 00-7 ####[facility] LABORATORYCLIA [id number] [address] [place] CBC W Auto Differential pane l (Bld)on 08-04-2021 Basophils (Bld) [#/Vol] 0.05 10*3/uL Normal <0.11 [facility] Comment on above: Order Comment: Speci men Type: BLOOD SPECIMENOrdering Facility: [facility] Address: [address] [place] [address] Performed By: #### 5 7021-8 ####[facility] LABORATORYCLIA [id number] [address] Basophils/100 WBC (Bld) 0.4 % Normal [facility] Comment on above: Order Comment: Speci men Type: BLOOD SPECIMENOrdering Facility: [facility] Address: [address] [place] [address] Performed By: #### 5 7021-8 ####[facility] LABORATORYCLIA [id number] [address] Differential cell count method Nom (Bld) Auto Normal [facility] Comment on above: Order Comment: Speci men Type: BLOOD SPECIMENOrdering Facility: [facility] Address: [address] [address] Performed By: #### 5 7021-8 ####[facility] LABORATORYCLIA [id number] [address] STATES OF [facility] Eosinophils (Bld) [#/Vol] 0.21 10*3/uL Normal <0.46 [facility] Comment on above: Order Comment: Speci men Type: BLOOD SPECIMENOrdering Facility: [facility] Address: [address] [address] Performed By: #### 5 7021-8 ####[facility] LABORATORYCLIA [id number] [address] Eosinophils/100 WBC (Bld) 1.7 % Normal [facility] Comment on above: Order Comment: Speci men Type: BLOOD SPECIMENOrdering Facility: [facility] Address: [address] [place] [address] Performed By: #### 5 7021-8 ####[facility] LABORATORYCLIA [id number] [address] Erythrocyte distribution width (RBC) [Ratio] 18.1 % High 11.5-15.0 [facility] Comment on above: Order Comment: Speci men Type: BLOOD SPECIMENOrdering Facility: [facility] Address: [address] [place] [address] Performed By: #### 5 7021-8 ####[facility] LABORATORYCLIA [id number] [address] Hematocrit (Bld) [Volume fraction] 32.0 % Low 39.0-51.0 [facility] Comment on above: Order Comment: Speci men Type: BLOOD SPECIMENOrdering Facility: [facility] Address: [address] [place] [address] Performed By: #### 5 7021-8 ####[facility] LABORATORYCLIA [id number] [address] OF [place] Hemoglobin (Bld) [Mass/Vol] 10.0 g/dL Low 13.0-17.0 [facility] Comment on above: Order Comment: Speci men Type: BLOOD SPECIMENOrdering Facility: [facility] Address: [address] [place] [address] Performed By: #### 5 7021-8 ####[facility] LABORATORYCLIA [id number] [address] IMMATURE GRAN % 0.6 % Normal [facility] Comment on above: Order Comment: Speci men Type: BLOOD SPECIMENOrdering Facility: [facility] Address: [address] [place] [address] Performed By: #### 5 7021-8 ####[facility] LABORATORYCLIA [id number] [address] IMMATURE GRAN ABS 0.08 k/uL Normal <0.10 [facility] Comment on above: Order Comment: Speci men Type: BLOOD SPECIMENOrdering Facility: [facility] Address: [address] [place] [address] Performed By: #### 5 7021-8 ####[facility] LABORATORYCLIA [id number] [address] Lymphocytes (Bld) [#/Vol] 2.55 10*3/uL Normal 1.00-4.00 [facility] Comment on above: Order Comment: Speci men Type: BLOOD SPECIMENOrdering Facility: [facility] Address: [address] [place] [address] Performed By: #### 5 7021-8 ####[facility] LABORATORYCLIA [id number] [address] Lymphocytes/100 WBC (Bld) 20.5 % Normal [facility] Comment on above: Order Comment: Speci men Type: BLOOD SPECIMENOrdering Facility: [facility] Address: [address] [place] [address] Performed By: #### 5 7021-8 ####[facility] LABORATORYCLIA [id number] [address] MCH (RBC) [Entitic mass] 28.9 pg Normal 26.0-34.0 [facility] Comment on above: Order Comment: Speci men Type: BLOOD SPECIMENOrdering Facility: [facility] Address: [address] [place] [address] Performed By: #### 5 7021-8 ####[facility] LABORATORYCLIA [id number] [address] MCHC (RBC) [Mass/Vol] 31.3 g/dL Normal 30.5-36.0 [facility] Comment on above: Order Comment: Speci men Type: BLOOD SPECIMENOrdering Facility: [facility] Address: [address] [address] Performed By: #### 5 7021-8 ####[facility] LABORATORYCLIA [id number] [address] [place] MCV (RBC) [Entitic vol] 92.5 fL Normal 80.0-100.0 [facility] Comment on above: Order Comment: Speci men Type: BLOOD SPECIMENOrdering Facility: [facility] Address: [address] [place] [address] Performed By: #### 5 7021-8 ####[facility] LABORATORYCLIA [id number] [address] [place] Monocytes (Bld) [#/Vol] 0.85 10*3/uL Normal <0.87 [facility] Comment on above: Order Comment: Speci men Type: BLOOD SPECIMENOrdering Facility: [facility] Address: [address] [place] [address] Performed By: #### 5 7021-8 ####[facility] LABORATORYCLIA [id number] [address] Monocytes/100 WBC (Bld) 6.8 % Normal [facility] Comment on above: Order Comment: Speci men Type: BLOOD SPECIMENOrdering Facility: [facility] Address: [address] [place] [address] Performed By: #### 5 7021-8 ####[facility] LABORATORYCLIA [id number] [address] [place] Neutrophils (Bld) [#/Vol] 8.68 10*3/uL High 1.45-7.50 [facility] Comment on above: Order Comment: Speci men Type: BLOOD SPECIMENOrdering Facility: [facility] Address: [address] [place] [address] Performed By: #### 5 7021-8 ####[facility] LABORATORYCLIA [id number] [address] Neutrophils/100 WBC (Bld) 70.0 % Normal [facility] Comment on above: Order Comment: Speci men Type: BLOOD SPECIMENOrdering Facility: [facility] Address: [address] [place] [address] Performed By: #### 5 7021-8 ####[facility] LABORATORYCLIA [id number] [address] [place] Nucleated RBC (Bld) [#/Vol] 10*3/uL Normal <0.01 [facility] Comment on above: Order Comment: Speci men Type: BLOOD SPECIMENOrdering Facility: [facility] Address: [address] [place] [address] Performed By: #### 5 7021-8 ####[facility] LABORATORYCLIA [id number] [address] Nucleated RBC/100 WBC (Bld) [Ratio] 0.0 /100 WBC Normal [facility] Comment on above: Order Comment: Speci men Type: BLOOD SPECIMENOrdering Facility: [facility] Address: [address] [place] [address] Performed By: #### 5 7021-8 ####[facility] LABORATORYCLIA [id number] [address] [place] Platelet mean volume (Bld) [Entitic vol] 10.0 fL Normal 9.0-12.7 [facility] Comment on above: Order Comment: Speci men Type: BLOOD SPECIMENOrdering Facility: [facility] Address: [address] Performed By: #### 5 7021-8 ####[facility] LABORATORYCLIA [id number] [address] [place] Platelets (Bld) [#/Vol] 393 10*3/uL Normal 150-400 [facility] Comment on above: Order Comment: Speci men Type: BLOOD SPECIMENOrdering Facility: [facility] Address: [address] [place] [address] Performed By: #### 5 7021-8 ####[facility] LABORATORYCLIA [id number] [address] OF [facility] RBC (Bld) [#/Vol] 3.46 10*6/uL Low 4.20-6.00 [facility] Comment on above: Order Comment: Speci men Type: BLOOD SPECIMENOrdering Facility: [facility] Address: [address] [place] [address] Performed By: #### 5 7021-8 ####[facility] LABORATORYCLIA [id number] [address] OF [facility] WBC (Bld) [#/Vol] 12.42 10*3/uL High 3.70-11.00 [facility] Comment on above: Order Comment: Speci men Type: BLOOD SPECIMENOrdering Facility: [facility] Address: [address] [place] [address] Performed By: #### 5 7021-8 ####[facility] LABORATORYCLIA [id number] [address] [place] BRAIN WO IVCONon 08-05-[address] BRAIN WO IVCON Normal [facility] Lactate (Bld) [Moles/Vol]on 08-04-2021 Lactate [Moles/Vol] 1.4 mmol/L Normal 0.5-2.2 [facility] Comment on above: Order Comment: Speci men Type: BLOOD SPECIMENOrdering Facility: [facility] Address: [address] [place] [address] Performed By: #### 3 2693-4 ####[facility] LABORATORYCLIA [id number] [address] PROCALCITONIN (LAB)on 2021 Procalcitonin [Mass/Vol] 0.08 ng/mL Normal <0.09 [facility] Comment on above: Order Comment: Speci men Type: BLOOD SPECIMENOrdering Facility: [facility] Address: [address] [place] [address] Result Comment: For a guided interpretation of test results, please visit the Change in Procalcitonin Calculator, [email or web address]. Performed By: #### P ROCAL ####[facility] LABORATORYCLIA [id number] [address] Prealbumin [Mass/Vol]on 07-07 Prealbumin Nephelometry [Mass/Vol] 35 mg/dL Normal 17-36 [facility] Comment on above: Order Comment: Speci men Type: BLOOD SPECIMENOrdering Facility: [facility] Address: [address] [place] [address] Performed By: #### 1 4338-8 ####[facility] LABORATORYCLIA [id number] [address] SARS-CoV-2 RNA Resp Ql MEGAN+p robeon 08-04-2021 SARS-CoV-2 (COVID-19) RNA MEGAN+probe Ql (Resp) COVID 19 RESULT: SARS-CoV-2 (Agent of COVID-19) Not Detected by RT-PCR or equivalent method. This test has been authorized by FDA under an Emergency Use Authorization (EUA). Normal [facility] Comment on above: Performed By: #### 9 4500-6 ####[facility] LABORATORYCLIA [id number] [address] TYPE AND SCREENon 08-04-2021 ABO O Normal [facility] Comment on above: Order Comment: Speci men Type: BLOOD SPECIMENOrdering Facility: [facility] Address: [address] [place] [address] Performed By: #### T SCR ####[facility] BLOOD BANKCLIA [id number] [address] HISTORICAL AB SCR STATUS Negative Normal [facility] Comment on above: Order Comment: Speci men Type: BLOOD SPECIMENOrdering Facility: [facility] Address: [address] [place] [address] Performed By: #### T SCR ####[facility] BLOOD BANKCLIA [id number] [address] OF [facility] Rh Nom (Bld) Positive Normal [facility] Comment on above: Order Comment: Speci men Type: BLOOD SPECIMENOrdering Facility: [facility] Address: [address] [place] [address] Performed By: #### T SCR ####[facility] BLOOD BANKCLIA [id number] [address] TYPE AND SCREEN EXPIRATION 08/07/2021 23:59 Normal [facility] Comment on above: Order Comment: Speci men Type: BLOOD SPECIMENOrdering Facility: [facility] Address: [address] [place] [address] Performed By: #### T SCR ####[facility] BLOOD BANKCLIA [id number] [address] [place] aPTT PPPon 08-04-2021 aPTT Coag (PPP) [Time] 51.8 s High 23.0-32.4 [facility] Comment on above: Order Comment: Speci men Type: BLOOD SPECIMENOrdering Facility: [facility] Address: [address] [place] [address] Performed By: #### 1 4979-9 ####[facility] LABORATORYCLIA [id number] [address] [place] Basic metabolic 2000 panelon 08-03-2021 Anion gap [Moles/Vol] 9 mmol/L Normal 9-18 [facility] Comment on above: Order Comment: Speci men Type: BLOOD SPECIMENOrdering Facility: [facility] Address: [address] [place] [address] Performed By: #### 2 4321-2, 40687-0, 2777-1 ####[facility] LABORATORYCLIA [id number] [address] STATES OF [facility] Calcium [Mass/Vol] 9.3 mg/dL Normal 8.5-10.2 [facility] Comment on above: Order Comment: Speci men Type: BLOOD SPECIMENOrdering Facility: [facility] Address: [address] [place], [place] [address] Performed By: #### 2 4321-2, , 2776-05 ####[facility] LABORATORYCLIA [id number] [place] [address] [place] Chloride [Moles/Vol] 97 mmol/L Normal 97-105 [facility] Comment on above: Order Comment: Speci men Type: BLOOD SPECIMENOrdering Facility: [facility] Address: [address] [place] [address] Performed By: #### 2 4321-2, , 2776-05 ####[facility] LABORATORYCLIA [id number] [address] [place] CO2 [Moles/Vol] 27 mmol/L Normal 22-30 [facility] Comment on above: Order Comment: Speci men Type: BLOOD SPECIMENOrdering Facility: [facility] Address: [address] [place] [address] Performed By: #### 2 4321-2, , 2776-05 ####[facility] LABORATORYCLIA [id number] [address] [place] Creatinine [Mass/Vol] 0.63 mg/dL Low 0.73-1.22 [facility] Comment on above: Order Comment: Speci men Type: BLOOD SPECIMENOrdering Facility: [facility] Address: [address] [place] [address] Performed By: #### 2 4321-2, , 2776-05 ####[facility] LABORATORYCLIA [id number] [address] OF [facility] ESTIMATED GLOMERULAR FILTRATION RATE 103 mL/min/1.73m??? Normal >=60 [facility] Comment on above: Order Comment: Speci men Type: BLOOD SPECIMENOrdering Facility: [facility] Address: [address] [place] [address] Result Comment: Luzmaria mated Glomerular Filtration Rate [...] Performed By: #### 2 4321-2, , 2776-05 ####[facility] LABORATORYCLIA [id number] [place] [address] [place] Glucose [Mass/Vol] 136 mg/dL High 74-99 [facility] Comment on above: Order Comment: Shira feldman Type: BLOOD SPECIMENOrdering Facility: [facility] Address: [address] [place], [place] [address] Result Comment: The [place] Diabetes [employer] (ADA) provides guidance for cutoff [...] Standards of Medical Care in Diabetes 2016, [place] [employer]. Diabetes Care. 2016.39(Suppl 1). Performed By: #### 2 4321-2, , 2776-05 ####[facility] LABORATORYCLIA [id number] [place] [address] [place] Potassium [Moles/Vol] 4.1 mmol/L Normal 3.7-5.1 [facility] Comment on above: Order Comment: Shira feldman Type: BLOOD SPECIMENOrdering Facility: [facility] Address: [address] [place] [address] Performed By: #### 2 4321-2, , 2776-05 ####[facility] LABORATORYCLIA [id number] [place] [address] [place] Sodium [Moles/Vol] 133 mmol/L Low 136-144 [facility] Comment on above: Order Comment: Speci men Type: BLOOD SPECIMENOrdering Facility: [facility] Address: [address] [place] [address] Performed By: #### 2 4321-2, 48390-1, 2777-1 ####[facility] LABORATORYCLIA [id number] [address] [place] Urea nitrogen [Mass/Vol] 40 mg/dL High 9-24 [facility] Comment on above: Order Comment: Speci men Type: BLOOD SPECIMENOrdering Facility: [facility] Address: [address] [place] [address] Performed By: #### 2 4321-2, , 27711-04 ####[facility] LABORATORYCLIA [id number] [address] CASE MANAGEMon 08-03-2021 CASE MANAGEM Normal [facility] CBC W Auto Differential pane l (Bld)on 08-03-2021 Basophils (Bld) [#/Vol] 0.06 10*3/uL Normal <0.11 [facility] Comment on above: Order Comment: Speci men Type: BLOOD SPECIMENOrdering Facility: [facility] Address: [address] [place] [address] Performed By: #### 5 7021-8 ####[facility] LABORATORYCLIA [id number] [address] [place] Basophils/100 WBC (Bld) 0.5 % Normal [facility] Comment on above: Order Comment: Speci men Type: BLOOD SPECIMENOrdering Facility: [facility] Address: [address] [place] [address] Performed By: #### 5 7021-8 ####[facility] LABORATORYCLIA [id number] [address] [place] Differential cell count method Nom (Bld) Auto Normal [facility] Comment on above: Order Comment: Speci men Type: BLOOD SPECIMENOrdering Facility: [facility] Address: [address] [address] Performed By: #### 5 7021-8 ####[facility] LABORATORYCLIA [id number] [address] Eosinophils (Bld) [#/Vol] 0.23 10*3/uL Normal <0.46 [facility] Comment on above: Order Comment: Speci men Type: BLOOD SPECIMENOrdering Facility: [facility] Address: [address] [place] [address] Performed By: #### 5 7021-8 ####[facility] LABORATORYCLIA [id number] [address] Eosinophils/100 WBC (Bld) 1.8 % Normal [facility] Comment on above: Order Comment: Speci men Type: BLOOD SPECIMENOrdering Facility: [facility] Address: [address] [place] [address] Performed By: #### 5 7021-8 ####[facility] LABORATORYCLIA [id number] [address] Erythrocyte distribution width (RBC) [Ratio] 17.6 % High 11.5-15.0 [facility] Comment on above: Order Comment: Speci men Type: BLOOD SPECIMENOrdering Facility: [facility] Address: [address] [place] [address] Performed By: #### 5 7021-8 ####[facility] LABORATORYCLIA [id number] [address] Hematocrit (Bld) [Volume fraction] 30.7 % Low 39.0-51.0 [facility] Comment on above: Order Comment: Speci men Type: BLOOD SPECIMENOrdering Facility: [facility] Address: [address] [place] [address] Performed By: #### 5 7021-8 ####[facility] LABORATORYCLIA [id number] [place] [address] [place] Hemoglobin (Bld) [Mass/Vol] 9.3 g/dL Low 13.0-17.0 [facility] Comment on above: Order Comment: Speci men Type: BLOOD SPECIMENOrdering Facility: [facility] Address: [address] [place] [address] Performed By: #### 5 7021-8 ####[facility]ORATORYCLIA [id number] [address] [place] IMMATURE GRAN % 0.6 % Normal [facility] Comment on above: Order Comment: Speci men Type: BLOOD SPECIMENOrdering Facility: [facility] Address: [address] [place] [address] Performed By: #### 5 7021-8 ####[facility] LABORATORYCLIA [id number] [address] OF [facility] IMMATURE GRAN ABS 0.08 k/uL Normal <0.10 [facility] Comment on above: Order Comment: Speci men Type: BLOOD SPECIMENOrdering Facility: [facility] Address: [address] [place] [address] Performed By: #### 5 7021-8 ####[facility] LABORATORYCLIA [id number] [place] [address] [place] Lymphocytes (Bld) [#/Vol] 2.45 10*3/uL Normal 1.00-4.00 [facility] Comment on above: Order Comment: Speci men Type: BLOOD SPECIMENOrdering Facility: [facility] Address: [address] [place] [address] Performed By: #### 5 7021-8 ####[facility] LABORATORYCLIA [id number] [address] [place] Lymphocytes/100 WBC (Bld) 19.7 % Normal [facility] Comment on above: Order Comment: Speci men Type: BLOOD SPECIMENOrdering Facility: [facility] Address: [address] [place] [address] Performed By: #### 5 7021-8 ####[facility]ORATORYCLIA [id number] [address] MCH (RBC) [Entitic mass] 28.2 pg Normal 26.0-34.0 [facility] Comment on above: Order Comment: Speci men Type: BLOOD SPECIMENOrdering Facility: [facility] Address: [address] [place] [address] Performed By: #### 5 7021-8 ####[facility] LABORATORYCLIA [id number] [address] STATES OF [facility] MCHC (RBC) [Mass/Vol] 30.3 g/dL Low 30.5-36.0 [facility] Comment on above: Order Comment: Speci men Type: BLOOD SPECIMENOrdering Facility: [facility] Address: [address] [place] [address] Performed By: #### 5 7021-8 ####[facility] LABORATORYCLIA [id number] [address] OF [facility] MCV (RBC) [Entitic vol] 93.0 fL Normal 80.0-100.0 [facility] Comment on above: Order Comment: Speci men Type: BLOOD SPECIMENOrdering Facility: [facility] Address: [address] [place] [address] Performed By: #### 5 7021-8 ####[facility] LABORATORYCLIA [id number] [address] STATES OF [facility] Monocytes (Bld) [#/Vol] 0.72 10*3/uL Normal <0.87 [facility] Comment on above: Order Comment: Speci men Type: BLOOD SPECIMENOrdering Facility: [facility] Address: [address] [place] [address] Performed By: #### 5 7021-8 ####[facility] LABORATORYCLIA [id number] [address] Monocytes/100 WBC (Bld) 5.8 % Normal [facility] Comment on above: Order Comment: Speci men Type: BLOOD SPECIMENOrdering Facility: [facility] Address: [address] [address] Performed By: #### 5 7021-8 ####[facility] LABORATORYCLIA [id number] [address] [place] Neutrophils (Bld) [#/Vol] 8.92 10*3/uL High 1.45-7.50 [facility] Comment on above: Order Comment: Speci men Type: BLOOD SPECIMENOrdering Facility: [facility] Address: [address] [place] [address] Performed By: #### 5 7021-8 ####[facility] LABORATORYCLIA [id number] [address] [facility] Neutrophils/100 WBC (Bld) 71.6 % Normal [facility] Comment on above: Order Comment: Speci men Type: BLOOD SPECIMENOrdering Facility: [facility] Address: [address] [place] [address] Performed By: #### 5 7021-8 ####[facility] LABORATORYCLIA [id number] [address] [place] Nucleated RBC (Bld) [#/Vol] 10*3/uL Normal <0.01 [facility] Comment on above: Order Comment: Speci men Type: BLOOD SPECIMENOrdering Facility: [facility] Address: [address] [place] [address] Performed By: #### 5 7021-8 ####[facility] LABORATORYCLIA [id number] [address] [place] Nucleated RBC/100 WBC (Bld) [Ratio] 0.0 /100 WBC Normal [facility] Comment on above: Order Comment: Speci men Type: BLOOD SPECIMENOrdering Facility: [facility] Address: [address] [place] [address] Performed By: #### 5 7021-8 ####[facility] LABORATORYCLIA [id number] [address] [place] Platelet mean volume (Bld) [Entitic vol] 10.2 fL Normal 9.0-12.7 [facility] Comment on above: Order Comment: Speci men Type: BLOOD SPECIMENOrdering Facility: [facility] Address: [address] [place] [address] Performed By: #### 5 7021-8 ####[facility] LABORATORYCLIA [id number] [address] [place] Platelets (Bld) [#/Vol] 352 10*3/uL Normal 150-400 [facility] Comment on above: Order Comment: Speci men Type: BLOOD SPECIMENOrdering Facility: [facility] Address: [address] [place] [address] Performed By: #### 5 7021-8 ####[facility] LABORATORYCLIA [id number] [place] [address] [place] RBC (Bld) [#/Vol] 3.30 10*6/uL Low 4.20-6.00 [facility] Comment on above: Order Comment: Speci men Type: BLOOD SPECIMENOrdering Facility: [facility] Address: [address] [place] [address] Performed By: #### 5 7021-8 ####[facility] LABORATORYCLIA [id number] [address] OF [facility] WBC (Bld) [#/Vol] 12.46 10*3/uL High 3.70-11.00 [facility] Comment on above: Order Comment: Speci men Type: BLOOD SPECIMENOrdering Facility: [facility] Address: [address] [place] [address] Performed By: #### 5 7021-8 ####[facility] LABORATORYCLIA [id number] [address] OF [facility] CONSULT PROGon 08-03-2021 CONSULT PROG Normal [facility] Magnesium SerPl-mCncon 08-03 Magnesium [Mass/Vol] 2.2 mg/dL Normal 1.7-2.3 [facility] Comment on above: Order Comment: Speci men Type: BLOOD SPECIMENOrdering Facility: [facility] Address: [address] [place] [address] Performed By: #### 2 4321-2, 58487-6, 2777 ####[facility] LABORATORYCLIA [id number] [address] STATES OF [facility] NURSING PROGon 08-03-2021 NURSING PROG Normal [facility] Phosphate SerPl-mCncon 08-03 Phosphate [Mass/Vol] 4.2 mg/dL Normal 2.7-4.8 [facility] Comment on above: Order Comment: Speci men Type: BLOOD SPECIMENOrdering Facility: [facility] Address: [address] [place] [address] Performed By: #### 2 4321-2, , 2777 ####[facility] LABORATORYCLIA [id number] [address] aPTT PPPon 08-03-2021 aPTT Coag (PPP) [Time] 50.0 s High 23.0-32.4 [facility] Comment on above: Order Comment: Speci men Type: BLOOD SPECIMENOrdering Facility: [facility] Address: [address] [place] [address] Performed By: #### 1 4979-9 ####[facility] LABORATORYCLIA [id number] [address] STATES OF [facility] CBC W Auto Differential pane l (Bld)on 08-02-2021 Basophils (Bld) [#/Vol] 10*3/uL Normal <0.11 [facility] Comment on above: Order Comment: Speci men Type: BLOOD SPECIMENOrdering Facility: [facility] Address: [address] [place] [address] Performed By: #### 5 7021-8 ####[facility] LABORATORYCLIA [id number] [address] Basophils/100 WBC (Bld) 0.2 % Normal [facility] Comment on above: Order Comment: Speci men Type: BLOOD SPECIMENOrdering Facility: [facility] Address: [address] [place] [address] Performed By: #### 5 7021-8 ####[facility] LABORATORYCLIA [id number] [address] Differential cell count method Nom (Bld) Auto Normal [facility] Comment on above: Order Comment: Speci men Type: BLOOD SPECIMENOrdering Facility: [facility] Address: [address] [place] [address] Performed By: #### 5 7021-8 ####[facility] LABORATORYCLIA [id number] [address] Eosinophils (Bld) [#/Vol] 10*3/uL Normal <0.46 [facility] Comment on above: Order Comment: Speci men Type: BLOOD SPECIMENOrdering Facility: [facility] Address: [address] [place] [address] Performed By: #### 5 7021-8 ####[facility] LABORATORYCLIA [id number] [address] Eosinophils/100 WBC (Bld) 0.0 % Normal [facility] Comment on above: Order Comment: Speci men Type: BLOOD SPECIMENOrdering Facility: [facility] Address: [address] [place] [address] Performed By: #### 5 7021-8 ####[facility] LABORATORYCLIA [id number] [address] Erythrocyte distribution width (RBC) [Ratio] 17.3 % High 11.5-15.0 [facility] Comment on above: Order Comment: Speci men Type: BLOOD SPECIMENOrdering Facility: [facility] Address: [address] [place] [address] Performed By: #### 5 7021-8 ####[facility] LABORATORYCLIA [id number] [address] [place] Hematocrit (Bld) [Volume fraction] 30.8 % Low 39.0-51.0 [facility] Comment on above: Order Comment: Speci men Type: BLOOD SPECIMENOrdering Facility: [facility] Address: [address] [place] [address] Performed By: #### 5 7021-8 ####[facility] LABORATORYCLIA [id number] [address] [place] Hemoglobin (Bld) [Mass/Vol] 9.7 g/dL Low 13.0-17.0 [facility] Comment on above: Order Comment: Speci men Type: BLOOD SPECIMENOrdering Facility: [facility] Address: [address] [place] [address] Performed By: #### 5 7021-8 ####[facility] LABORATORYCLIA [id number] [address] [place] IMMATURE GRAN % 0.5 % Normal [facility] Comment on above: Order Comment: Speci men Type: BLOOD SPECIMENOrdering Facility: [facility] Address: [address] [place] [address] Performed By: #### 5 7021-8 ####[facility] LABORATORYCLIA [id number] [address] IMMATURE GRAN ABS 0.07 k/uL Normal <0.10 [facility] Comment on above: Order Comment: Speci men Type: BLOOD SPECIMENOrdering Facility: [facility] Address: [address] [place] [address] Performed By: #### 5 7021-8 ####[facility] LABORATORYCLIA [id number] [address] [place] Lymphocytes (Bld) [#/Vol] 1.60 10*3/uL Normal 1.00-4.00 [facility] Comment on above: Order Comment: Speci men Type: BLOOD SPECIMENOrdering Facility: [facility] Address: [address] [place] [address] Performed By: #### 5 7021-8 ####[facility]ATORYCLIA [id number] [address] Lymphocytes/100 WBC (Bld) 12.1 % Normal [facility] Comment on above: Order Comment: Speci men Type: BLOOD SPECIMENOrdering Facility: [facility] Address: [address] [place] [address] Performed By: #### 5 7021-8 ####[facility] LABORATORYCLIA [id number] [address] MCH (RBC) [Entitic mass] 28.6 pg Normal 26.0-34.0 [facility] Comment on above: Order Comment: Speci men Type: BLOOD SPECIMENOrdering Facility: [facility] Address: [address] [place] [address] Performed By: #### 5 7021-8 ####[facility] LABORATORYCLIA [id number] [address] STATES OF [facility] MCHC (RBC) [Mass/Vol] 31.5 g/dL Normal 30.5-36.0 [facility] Comment on above: Order Comment: Speci men Type: BLOOD SPECIMENOrdering Facility: [facility] Address: [address] [place] [address] Performed By: #### 5 7021-8 ####[facility] LABORATORYCLIA [id number] [address] MCV (RBC) [Entitic vol] 90.9 fL Normal 80.0-100.0 [facility] Comment on above: Order Comment: Speci men Type: BLOOD SPECIMENOrdering Facility: [facility] Address: [address] [place] [address] Performed By: #### 5 7021-8 ####[facility] LABORATORYCLIA [id number] [address] Monocytes (Bld) [#/Vol] 0.39 10*3/uL Normal <0.87 [facility] Comment on above: Order Comment: Speci men Type: BLOOD SPECIMENOrdering Facility: [facility] Address: [address] [address] Performed By: #### 5 7021-8 ####[facility] GENERAL LABORATORYCLIA [id number] [address] [place] Monocytes/100 WBC (Bld) 3.0 % Normal [facility] Comment on above: Order Comment: Speci men Type: BLOOD SPECIMENOrdering Facility: [facility] Address: [address] [place] [address] Performed By: #### 5 7021-8 ####[facility]ORATORYCLIA [id number] [place] [address] [place] Neutrophils (Bld) [#/Vol] 11.09 10*3/uL High 1.45-7.50 [facility] Comment on above: Order Comment: Speci men Type: BLOOD SPECIMENOrdering Facility: [facility] Address: [address] [place] [address] Performed By: #### 5 7021-8 ####[facility] LABORATORYCLIA [id number] [address] [facility] Neutrophils/100 WBC (Bld) 84.2 % Normal [facility] Comment on above: Order Comment: Speci men Type: BLOOD SPECIMENOrdering Facility: [facility] Address: [address] [place] [address] Performed By: #### 5 7021-8 ####[facility] LABORATORYCLIA [id number] [address] [place] Nucleated RBC (Bld) [#/Vol] 10*3/uL Normal <0.01 [facility] Comment on above: Order Comment: Speci men Type: BLOOD SPECIMENOrdering Facility: [facility] Address: [address] [place] [address] Performed By: #### 5 7021-8 ####[facility]ORATORYCLIA [id number] [address] [place] Nucleated RBC/100 WBC (Bld) [Ratio] 0.0 /100 WBC Normal [facility] Comment on above: Order Comment: Speci men Type: BLOOD SPECIMENOrdering Facility: [facility] Address: [address] [place] [address] Performed By: #### 5 7021-8 ####[facility] LABORATORYCLIA [id number] [address] Platelet mean volume (Bld) [Entitic vol] 10.0 fL Normal 9.0-12.7 [facility] Comment on above: Order Comment: Speci men Type: BLOOD SPECIMENOrdering Facility: [facility] Address: [address] [place], [place] [address] Performed By: #### 5 7021-8 ####[facility] LABORATORYCLIA [id number] [address] [place] Platelets (Bld) [#/Vol] 358 10*3/uL Normal 150-400 [facility] Comment on above: Order Comment: Speci men Type: BLOOD SPECIMENOrdering Facility: [facility] Address: [address] [place] [address] Performed By: #### 5 7021-8 ####[facility] LABORATORYCLIA [id number] [address] [place] RBC (Bld) [#/Vol] 3.39 10*6/uL Low 4.20-6.00 [facility] Comment on above: Order Comment: Speci men Type: BLOOD SPECIMENOrdering Facility: [facility] Address: [address] [place], [place] [address] Performed By: #### 5 7021-8 ####[facility] LABORATORYCLIA [id number] [address] [place] WBC (Bld) [#/Vol] 13.17 10*3/uL High 3.70-11.00 [facility] Comment on above: Order Comment: Speci men Type: BLOOD SPECIMENOrdering Facility: [facility] Address: [address] [place] [address] Performed By: #### 5 7021-8 ####[facility] LABORATORYCLIA [id number] [address] OF [facility] NURSING PROGon 08-02-2021 NURSING PROG Normal [facility] THERAPY NTon 08-02-2021 THERAPY NT Normal [facility] aPTT PPPon 08-02-2021 aPTT Coag (PPP) [Time] 54.9 s High 23.0-32.4 [facility] Comment on above: Order Comment: Speci men Type: BLOOD SPECIMENOrdering Facility: [facility] Address: [address] [place] [address] Performed By: #### 1 4979-9 ####[facility] LABORATORYCLIA [id number] [address] OF [facility] ALLIED HEALTHon 08-01-2021 ALLIED HEALTH Normal [facility] ALLIED HEALTH Normal [facility] Basic metabolic 2000 panelon 08-01-2021 Anion gap [Moles/Vol] 12 mmol/L Normal 9-18 [facility] Comment on above: Order Comment: Speci men Type: BLOOD SPECIMENOrdering Facility: [facility] Address: [address] [place] [address] Performed By: #### 2 4321-2, 80561-4, 61233-9, 2777-1 ####[facility] LABORATORYCLIA [id number] [place] [address] [place] Calcium [Mass/Vol] 9.1 mg/dL Normal 8.5-10.2 [facility] Comment on above: Order Comment: Speci men Type: BLOOD SPECIMENOrdering Facility: [facility] Address: [address] [place] [address] Performed By: #### 2 4321-2, 98519-3, 29545-7, 2777-1 ####[facility] LABORATORYCLIA [id number] [place] [address] [place] Chloride [Moles/Vol] 96 mmol/L Low 97-105 [facility] Comment on above: Order Comment: Speci men Type: BLOOD SPECIMENOrdering Facility: [facility] Address: [address] [place] [address] Performed By: #### 2 4321-2, 91378-0, 49410-7, 2777-1 ####[facility] HOSPITALCLIA [id number] [address] [facility] CO2 [Moles/Vol] 27 mmol/L Normal 22-30 [facility] Comment on above: Order Comment: Speci men Type: BLOOD SPECIMENOrdering Facility: [facility] Address: [address] [place] [address] Performed By: #### 2 4321-2, 64361-9, 51649-1, 2777-1 ####[facility] HOSPITALIA [id number] [address] Creatinine [Mass/Vol] 0.64 mg/dL Low 0.73-1.22 [facility] Comment on above: Order Comment: Speci men Type: BLOOD SPECIMENOrdering Facility: [facility] Address: [address] [place] [address] Performed By: #### 2 4321-2, 16714-1, 92060-7, 2777- ####[facility] HOSPITALIA [id number] [address] ESTIMATED GLOMERULAR FILTRATION RATE 102 mL/min/1.73m??? Normal >=60 [facility] Comment on above: Order Comment: Speci men Type: BLOOD SPECIMENOrdering Facility: [facility] Address: [address] [place] [address] Result Comment: Luzmaria mated Glomerular Filtration Rate [...] actual GFR. Performed By: #### 2 4321-2, 28048-2, 61650-5, 2777-1 ####[facility] LABORATORYCLIA [id number] [place] [address] [place] Glucose [Mass/Vol] 122 mg/dL High 74-99 [facility] Comment on above: Order Comment: Shira feldman Type: BLOOD SPECIMENOrdering Facility: [facility] Address: [address] [place], [place] [id number] Result Comment: The [place] [employer] (ADA) provides guidance for cutoff [...] Standards of Medical Care in Diabetes 2016, [place] [employer]. Diabetes Care. 2016.39(Suppl 1). Performed By: #### 2 4321-2, 79368-4, 16230-5, 2777-1 ####[facility] LABORATORYCLIA [id number] [place] [address] [place] Potassium [Moles/Vol] 4.2 mmol/L Normal 3.7-5.1 [facility] Comment on above: Order Comment: Shira feldman Type: BLOOD SPECIMENOrdering Facility: [facility] Address: [address] [place], [place] [id number] Performed By: #### 2 4321-2, 22138-8, 08188-1, 2777-1 ####[facility] LABORATORYCLIA [id number] [place] [address] [place] Sodium [Moles/Vol] 135 mmol/L Low 136-144 [facility] Comment on above: Order Comment: Shira feldman Type: BLOOD SPECIMENOrdering Facility: [facility] Address: [address] [id number] Performed By: #### 2 4321-2, 79170-4, 93924-0, 2777-1 ####[facility] LABORATORYCLIA [id number] [place] [address] [place] Urea nitrogen [Mass/Vol] 36 mg/dL High 9-24 [facility] Comment on above: Order Comment: Speci men Type: BLOOD SPECIMENOrdering Facility: [facility] Address: [address] [place] [address] Performed By: #### 2 4321-2, 55225-5, 85018-4, 2777-1 ####[facility] LABORATORYCLIA [id number] [address] [place] CASE MANAGEMon 08-01-2021 CASE MANAGEM Normal [facility] CBC W Auto Differential pane l (Bld)on 08-01-2021 Basophils (Bld) [#/Vol] 0.04 10*3/uL Normal <0.11 [facility] Comment on above: Order Comment: Speci men Type: BLOOD SPECIMENOrdering Facility: [facility] Address: [address] [place] [address] Performed By: #### 5 7021-8 ####[facility] LABORATORYCLIA [id number] [address] [place] Basophils/100 WBC (Bld) 0.3 % Normal [facility] Comment on above: Order Comment: Speci men Type: BLOOD SPECIMENOrdering Facility: [facility] Address: [address] [place] [address] Performed By: #### 5 7021-8 ####[facility] LABORATORYCLIA [id number] [address] [place] Differential cell count method Nom (Bld) Auto Normal [facility] Comment on above: Order Comment: Speci men Type: BLOOD SPECIMENOrdering Facility: [facility] Address: [address] [place] [address] Performed By: #### 5 7021-8 ####[facility] LABORATORYCLIA [id number] [place] [address] [place] Eosinophils (Bld) [#/Vol] 0.37 10*3/uL Normal <0.46 [facility] Comment on above: Order Comment: Speci men Type: BLOOD SPECIMENOrdering Facility: [facility] Address: [address] [place] [address] Performed By: #### 5 7021-8 ####[facility] LABORATORYCLIA [id number] [address] Eosinophils/100 WBC (Bld) 3.1 % Normal [facility] Comment on above: Order Comment: Speci men Type: BLOOD SPECIMENOrdering Facility: [facility] Address: [address] [place] [address] Performed By: #### 5 7021-8 ####[facility] LABORATORYCLIA [id number] [address] [place] Erythrocyte distribution width (RBC) [Ratio] 17.5 % High 11.5-15.0 [facility] Comment on above: Order Comment: Speci men Type: BLOOD SPECIMENOrdering Facility: [facility] Address: [address] [place] [address] Performed By: #### 5 7021-8 ####[facility] LABORATORYCLIA [id number] [address] STATES OF [facility] Hematocrit (Bld) [Volume fraction] 30.1 % Low 39.0-51.0 [facility] Comment on above: Order Comment: Speci men Type: BLOOD SPECIMENOrdering Facility: [facility] Address: [address] [place] [address] Performed By: #### 5 7021-8 ####[facility] LABORATORYCLIA [id number] [address] [place] Hemoglobin (Bld) [Mass/Vol] 9.1 g/dL Low 13.0-17.0 [facility] Comment on above: Order Comment: Speci men Type: BLOOD SPECIMENOrdering Facility: [facility] Address: [address] [place] [address] Performed By: #### 5 7021-8 ####[facility]ORATORYCLIA [id number] [address] IMMATURE GRAN % 0.6 % Normal [facility] Comment on above: Order Comment: Speci men Type: BLOOD SPECIMENOrdering Facility: [facility] Address: [address] [place] [address] Performed By: #### 5 7021-8 ####[facility] LABORATORYCLIA [id number] [address] IMMATURE GRAN ABS 0.07 k/uL Normal <0.10 [facility] Comment on above: Order Comment: Speci men Type: BLOOD SPECIMENOrdering Facility: [facility] Address: [address] [place] [address] Performed By: #### 5 7021-8 ####[facility] LABORATORYCLIA [id number] [address] [facility] Lymphocytes (Bld) [#/Vol] 2.05 10*3/uL Normal 1.00-4.00 [facility] Comment on above: Order Comment: Speci men Type: BLOOD SPECIMENOrdering Facility: [facility] Address: [address] [place] [address] Performed By: #### 5 7021-8 ####[facility] LABORATORYCLIA [id number] [address] Lymphocytes/100 WBC (Bld) 17.1 % Normal [facility] Comment on above: Order Comment: Speci men Type: BLOOD SPECIMENOrdering Facility: [facility] Address: [address] [place] [address] Performed By: #### 5 7021-8 ####[facility] LABORATORYCLIA [id number] [address] [facility] MCH (RBC) [Entitic mass] 27.7 pg Normal 26.0-34.0 [facility] Comment on above: Order Comment: Speci men Type: BLOOD SPECIMENOrdering Facility: [facility] Address: [address] [place] [address] Performed By: #### 5 7021-8 ####[facility] LABORATORYCLIA [id number] [address] [facility] MCHC (RBC) [Mass/Vol] 30.2 g/dL Low 30.5-36.0 [facility] Comment on above: Order Comment: Speci men Type: BLOOD SPECIMENOrdering Facility: [facility] Address: [address] [place] [address] Performed By: #### 5 7021-8 ####[facility] LABORATORYCLIA [id number] [address] STATES OF [facility] MCV (RBC) [Entitic vol] 91.5 fL Normal 80.0-100.0 [facility] Comment on above: Order Comment: Speci men Type: BLOOD SPECIMENOrdering Facility: [facility] Address: [address] [place] [address] Performed By: #### 5 7021-8 ####[facility] LABORATORYCLIA [id number] [address] STATES OF [facility] Monocytes (Bld) [#/Vol] 0.53 10*3/uL Normal <0.87 [facility] Comment on above: Order Comment: Speci men Type: BLOOD SPECIMENOrdering Facility: [facility] Address: [address] [place] [address] Performed By: #### 5 7021-8 ####[facility] LABORATORYCLIA [id number] [address] Monocytes/100 WBC (Bld) 4.4 % Normal [facility] Comment on above: Order Comment: Speci men Type: BLOOD SPECIMENOrdering Facility: [facility] Address: [address] [place] [address] Performed By: #### 5 7021-8 ####[facility] LABORATORYCLIA [id number] [address] [place] Neutrophils (Bld) [#/Vol] 8.91 10*3/uL High 1.45-7.50 [facility] Comment on above: Order Comment: Speci men Type: BLOOD SPECIMENOrdering Facility: [facility] Address: [address] [place] [address] Performed By: #### 5 7021-8 ####[facility] LABORATORYCLIA [id number] [address] Neutrophils/100 WBC (Bld) 74.5 % Normal [facility] Comment on above: Order Comment: Speci men Type: BLOOD SPECIMENOrdering Facility: [facility] Address: [address] [place] [address] Performed By: #### 5 7021-8 ####[facility] LABORATORYCLIA [id number] [address] OF [place] Nucleated RBC (Bld) [#/Vol] 10*3/uL Normal <0.01 [facility] Comment on above: Order Comment: Speci men Type: BLOOD SPECIMENOrdering Facility: [facility] Address: [address] [place] [address] Performed By: #### 5 7021-8 ####[facility] LABORATORYCLIA [id number] [address] Nucleated RBC/100 WBC (Bld) [Ratio] 0.0 /100 WBC Normal [facility] Comment on above: Order Comment: Speci men Type: BLOOD SPECIMENOrdering Facility: [facility] Address: [address] [place] [address] Performed By: #### 5 7021-8 ####[facility] LABORATORYCLIA [id number] [address] [place] Platelet mean volume (Bld) [Entitic vol] 10.4 fL Normal 9.0-12.7 [facility] Comment on above: Order Comment: Speci men Type: BLOOD SPECIMENOrdering Facility: [facility] Address: [address] [place] [address] Performed By: #### 5 7021-8 ####[facility]ATORYCLIA [id number] [address] OF [facility] Platelets (Bld) [#/Vol] 319 10*3/uL Normal 150-400 [facility] Comment on above: Order Comment: Speci men Type: BLOOD SPECIMENOrdering Facility: [facility] Address: [address] [place] [address] Performed By: #### 5 7021-8 ####[facility] LABORATORYCLIA [id number] [place] [address] [place] RBC (Bld) [#/Vol] 3.29 10*6/uL Low 4.20-6.00 [facility] Comment on above: Order Comment: Speci men Type: BLOOD SPECIMENOrdering Facility: [facility] Address: [address] [place] [address] Performed By: #### 5 7021-8 ####[facility] LABORATORYCLIA [id number] [address] WBC (Bld) [#/Vol] 11.97 10*3/uL High 3.70-11.00 [facility] Comment on above: Order Comment: Speci men Type: BLOOD SPECIMENOrdering Facility: [facility] Address: [address] [place] [address] Performed By: #### 5 7021-8 ####[facility] LABORATORYCLIA [id number] [address] OF [place] CT BRAIN WO IVCONon 08-02-19 CT BRAIN WO IVCON Normal [facility] Magnesium SerPl-mCncon 08-01 Magnesium [Mass/Vol] 2.4 mg/dL High 1.7-2.3 [facility] Comment on above: Order Comment: Speci men Type: BLOOD SPECIMENOrdering Facility: [facility] Address: [address] [place] [address] Performed By: #### 2 4321-2, 17200-9, 53005-3, 2777-1 ####[facility] LABORATORYCLIA [id number] [place] [address] NURSING PROGon 08-01-2021 NURSING PROG Normal [facility] NUTRITIONon 08-01-2021 NUTRITION Normal [facility] Phosphate SerPl-mCncon 08-01 Phosphate [Mass/Vol] 3.3 mg/dL Normal 2.7-4.8 [facility] Comment on above: Order Comment: Speci men Type: BLOOD SPECIMENOrdering Facility: [facility] Address: [address] [place] [address] Performed By: #### 2 4321-2, 38215-8, 61561-1, 2777-1 ####[facility] LABORATORYCLIA [id number] [address] Prealbumin [Mass/Vol]on 07-06 Prealbumin Nephelometry [Mass/Vol] 30 mg/dL Normal 17-36 [facility] Comment on above: Order Comment: Speci men Type: BLOOD SPECIMENOrdering Facility: [facility] Address: [address] [place] [address] Performed By: #### 2 4321-2, 79644-2, 31543-5, 2777-1 ####[facility] LABORATORYCLIA [id number] [address] THERAPY NTon 08-01-2021 THERAPY NT Normal [facility] THERAPY NT Normal [facility] TYPE AND SCREENon 08-01-2021 ABO O Normal [facility] Comment on above: Order Comment: Speci men Type: BLOOD SPECIMENOrdering Facility: [facility] Address: [address] [place] [address] Performed By: #### T SCR ####[facility] BLOOD BANKCLIA [id number] [address] HISTORICAL AB SCR STATUS Negative Normal [facility] Comment on above: Order Comment: Speci men Type: BLOOD SPECIMENOrdering Facility: [facility] Address: [address] [place] [address] Performed By: #### T SCR ####[facility] BLOOD BANKCLIA [id number] [address] Rh Nom (Bld) Positive Normal [facility] Comment on above: Order Comment: Speci men Type: BLOOD SPECIMENOrdering Facility: [facility] Address: [address] [place] [address] Performed By: #### T SCR ####[facility] BLOOD BANKCLIA [id number] [address] TYPE AND SCREEN EXPIRATION 08/04/2021 23:59 Normal [facility] Comment on above: Order Comment: Speci men Type: BLOOD SPECIMENOrdering Facility: [facility] Address: [address] [place] [address] Performed By: #### T SCR ####[facility] BLOOD BANKCLIA [id number] [address] XR CHEST 1V FRONTALon 2021 XR CHEST 1V FRONTAL Normal [facility] aPTT PPPon 08-01-2021 aPTT Coag (PPP) [Time] 50.9 s High 23.0-32.4 [facility] Comment on above: Order Comment: Speci men Type: BLOOD SPECIMENOrdering Facility: [facility] Address: [address] [place] [address] Performed By: #### 1 4979-9 ####[facility] LABORATORYCLIA [id number] [address] CBC W Auto Differential pane l (Bld)on 07-31-2021 Basophils (Bld) [#/Vol] 0.05 10*3/uL Normal <0.11 [facility] Comment on above: Order Comment: Speci men Type: BLOOD SPECIMENOrdering Facility: [facility] Address: [address] [place] [address] Performed By: #### 5 7021-8 ####[facility] LABORATORYCLIA [id number] [address] Basophils/100 WBC (Bld) 0.4 % Normal [facility] Comment on above: Order Comment: Speci men Type: BLOOD SPECIMENOrdering Facility: [facility] Address: [address] [place] [address] Performed By: #### 5 7021-8 ####[facility] LABORATORYCLIA [id number] [address] [place] Differential cell count method Nom (Bld) Auto Normal [facility] Comment on above: Order Comment: Speci men Type: BLOOD SPECIMENOrdering Facility: [facility] Address: [address] [place] [address] Performed By: #### 5 7021-8 ####[facility] LABORATORYCLIA [id number] [address] [place] Eosinophils (Bld) [#/Vol] 0.51 10*3/uL High <0.46 [facility] Comment on above: Order Comment: Speci men Type: BLOOD SPECIMENOrdering Facility: [facility] Address: [address] [place] [address] Performed By: #### 5 7021-8 ####[facility] LABORATORYCLIA [id number] [address] Eosinophils/100 WBC (Bld) 4.5 % Normal [facility] Comment on above: Order Comment: Speci men Type: BLOOD SPECIMENOrdering Facility: [facility] Address: [address] [place] [address] Performed By: #### 5 7021-8 ####[facility] LABORATORYCLIA [id number] [address] [place] Erythrocyte distribution width (RBC) [Ratio] 17.5 % High 11.5-15.0 [facility] Comment on above: Order Comment: Speci men Type: BLOOD SPECIMENOrdering Facility: [facility] Address: [address] [place] [address] Performed By: #### 5 7021-8 ####[facility] LABORATORYCLIA [id number] [address] Hematocrit (Bld) [Volume fraction] 30.4 % Low 39.0-51.0 [facility] Comment on above: Order Comment: Speci men Type: BLOOD SPECIMENOrdering Facility: [facility] Address: [address] [place] [address] Performed By: #### 5 7021-8 ####[facility] LABORATORYCLIA [id number] [address] [place] Hemoglobin (Bld) [Mass/Vol] 9.2 g/dL Low 13.0-17.0 [facility] Comment on above: Order Comment: Speci men Type: BLOOD SPECIMENOrdering Facility: [facility] Address: [address] [place] [address] Performed By: #### 5 7021-8 ####[facility] LABORATORYCLIA [id number] [address] IMMATURE GRAN % 0.5 % Normal [facility] Comment on above: Order Comment: Speci men Type: BLOOD SPECIMENOrdering Facility: [facility] Address: [address] [place] [address] Performed By: #### 5 7021-8 ####[facility] LABORATORYCLIA [id number] [address] IMMATURE GRAN ABS 0.06 k/uL Normal <0.10 [facility] Comment on above: Order Comment: Speci men Type: BLOOD SPECIMENOrdering Facility: [facility] Address: [address] [place] [address] Performed By: #### 5 7021-8 ####[facility] LABORATORYCLIA [id number] [address] [place] Lymphocytes (Bld) [#/Vol] 1.99 10*3/uL Normal 1.00-4.00 [facility] Comment on above: Order Comment: Speci men Type: BLOOD SPECIMENOrdering Facility: [facility] Address: [address] [place] [address] Performed By: #### 5 7021-8 ####[facility] LABORATORYCLIA [id number] [address] Lymphocytes/100 WBC (Bld) 17.6 % Normal [facility] Comment on above: Order Comment: Speci men Type: BLOOD SPECIMENOrdering Facility: [facility] Address: [address] [place] [address] Performed By: #### 5 7021-8 ####[facility] LABORATORYCLIA [id number] [address] MCH (RBC) [Entitic mass] 28.4 pg Normal 26.0-34.0 [facility] Comment on above: Order Comment: Speci men Type: BLOOD SPECIMENOrdering Facility: [facility] Address: [address] [place] [address] Performed By: #### 5 7021-8 ####[facility] LABORATORYCLIA [id number] [address] MCHC (RBC) [Mass/Vol] 30.3 g/dL Low 30.5-36.0 [facility] Comment on above: Order Comment: Speci men Type: BLOOD SPECIMENOrdering Facility: [facility] Address: [address] [place] [address] Performed By: #### 5 7021-8 ####[facility] LABORATORYCLIA [id number] [address] MCV (RBC) [Entitic vol] 93.8 fL Normal 80.0-100.0 [facility] Comment on above: Order Comment: Speci men Type: BLOOD SPECIMENOrdering Facility: [facility] Address: [address] [place] [address] Performed By: #### 5 7021-8 ####[facility] LABORATORYCLIA [id number] [address] Monocytes (Bld) [#/Vol] 0.57 10*3/uL Normal <0.87 [facility] Comment on above: Order Comment: Speci men Type: BLOOD SPECIMENOrdering Facility: [facility] Address: [address] [place] [address] Performed By: #### 5 7021-8 ####[facility] LABORATORYCLIA [id number] [address] [place] Monocytes/100 WBC (Bld) 5.0 % Normal [facility] Comment on above: Order Comment: Speci men Type: BLOOD SPECIMENOrdering Facility: [facility] Address: [address] [place] [address] Performed By: #### 5 7021-8 ####[facility]ORATORYCLIA [id number] [place] [address] [place] Neutrophils (Bld) [#/Vol] 8.12 10*3/uL High 1.45-7.50 [facility] Comment on above: Order Comment: Speci men Type: BLOOD SPECIMENOrdering Facility: [facility] Address: [address] [place] [address] Performed By: #### 5 7021-8 ####[facility] LABORATORYCLIA [id number] [address] [place] Neutrophils/100 WBC (Bld) 72.0 % Normal [facility] Comment on above: Order Comment: Speci men Type: BLOOD SPECIMENOrdering Facility: [facility] Address: [address] [place] [address] Performed By: #### 5 7021-8 ####[facility]ORATORYCLIA [id number] [place] [address] [place] Nucleated RBC (Bld) [#/Vol] 10*3/uL Normal <0.01 [facility] Comment on above: Order Comment: Speci men Type: BLOOD SPECIMENOrdering Facility: [facility] Address: [address] [place] [address] Performed By: #### 5 7021-8 ####[facility]ORATORYCLIA [id number] [address] [place] Nucleated RBC/100 WBC (Bld) [Ratio] 0.0 /100 WBC Normal [facility] Comment on above: Order Comment: Speci men Type: BLOOD SPECIMENOrdering Facility: [facility] Address: [address] [place] [address] Performed By: #### 5 7021-8 ####[facility] LABORATORYCLIA [id number] [place] [address] [place] Platelet mean volume (Bld) [Entitic vol] 10.9 fL Normal 9.0-12.7 [facility] Comment on above: Order Comment: Speci men Type: BLOOD SPECIMENOrdering Facility: [facility] Address: [address] [place] [address] Performed By: #### 5 7021-8 ####[facility] LABORATORYCLIA [id number] [place] [address] [place] Platelets (Bld) [#/Vol] 303 10*3/uL Normal 150-400 [facility] Comment on above: Order Comment: Speci men Type: BLOOD SPECIMENOrdering Facility: [facility] Address: [address] [place] [address] Performed By: #### 5 7021-8 ####[facility] LABORATORYCLIA [id number] [place] [address] [place] RBC (Bld) [#/Vol] 3.24 10*6/uL Low 4.20-6.00 [facility] Comment on above: Order Comment: Speci men Type: BLOOD SPECIMENOrdering Facility: [facility] Address: [address] [place] [address] Performed By: #### 5 7021-8 ####[facility] LABORATORYCLIA [id number] [place] [address] [place] WBC (Bld) [#/Vol] 11.30 10*3/uL High 3.70-11.00 [facility] Comment on above: Order Comment: Speci men Type: BLOOD SPECIMENOrdering Facility: [facility] Address: [address] [place] [address] Performed By: #### 5 7021-8 ####[facility] LABORATORYCLIA [id number] [address] NURSING PROGon 07-31-2021 NURSING PROG Normal [facility] aPTT PPPon 07-31-2021 aPTT Coag (PPP) [Time] 64.9 s High 23.0-32.4 [facility] Comment on above: Order Comment: Speci men Type: BLOOD SPECIMENOrdering Facility: [facility] Address: [address] [place] [address] Performed By: #### 1 4979-9 ####[facility] LABORATORYCLIA [id number] [address] OF [facility] ALLIED HEALTHon 07-30-2021 ALLIED HEALTH Normal [facility] Bacteria CSF Culton 07-31-19 22 Bacteria identified Cx Nom (CSF) CULTURE, CSF: No growth 14 days GRAM STAIN: No organisms seen Few Mononuclear cells Rare Polymorphonuclear leukocytes Gram stain performed on cytospun specimen. Normal [facility] Comment on above: Performed By: #### 6 06-4 ####[facility] LABORATORYCLIA [id number] [place] [address] [place] Basic metabolic 2000 panelon 07-30-2021 Anion gap [Moles/Vol] 9 mmol/L Normal 9-18 [facility] Comment on above: Order Comment: Speci men Type: BLOOD SPECIMENOrdering Facility: [facility] Address: [address] [place] [address] Performed By: #### 2 777-1, 28630-6, 96364-6 ####[facility] LABORATORYCLIA [id number] [address] STATES OF [facility] Calcium [Mass/Vol] 8.9 mg/dL Normal 8.5-10.2 [facility] Comment on above: Order Comment: Speci men Type: BLOOD SPECIMENOrdering Facility: [facility] Address: [address] [place] [address] Performed By: #### 2 777-1, 67921-9, ####[facility] LABORATORYCLIA [id number] [place] [address] [place] Chloride [Moles/Vol] 95 mmol/L Low 97-105 [facility] Comment on above: Order Comment: Speci men Type: BLOOD SPECIMENOrdering Facility: [facility] Address: [address] [place] [address] Performed By: #### 2 777-1, 94928-2, ####[facility] LABORATORYCLIA [id number] [place] [id number] [place] CO2 [Moles/Vol] 28 mmol/L Normal 22-30 [facility] Comment on above: Order Comment: Speci men Type: BLOOD SPECIMENOrdering Facility: [facility] Address: [address] [place] [address] Performed By: #### 2 777-1, , ####[facility] HOSPITALCLIA [id number] [address] OF [facility] Creatinine [Mass/Vol] 0.67 mg/dL Low 0.73-1.22 [facility] Comment on above: Order Comment: Speci men Type: BLOOD SPECIMENOrdering Facility: [facility] Address: [address] [place] [address] Performed By: #### 2 777-1, , ####[facility] LABORATORYCLIA [id number] [address] ESTIMATED GLOMERULAR FILTRATION RATE 101 mL/min/1.73m??? Normal >=60 [facility] Comment on above: Order Comment: Speci men Type: BLOOD SPECIMENOrdering Facility: [facility] Address: [address] [place] [address] Result Comment: Luzmaria mated Glomerular Filtration Rate [...] actual GFR. Performed By: #### 2 777-1, 14496-0, ####[facility] LABORATORYCLIA [id number] [place] [address] [place] Glucose [Mass/Vol] 125 mg/dL High 74-99 [facility] Comment on above: Order Comment: Shira feldman Type: BLOOD SPECIMENOrdering Facility: [facility] Address: [address] [place], [place] [address] Result Comment: The [place] Diabetes [employer] (ADA) provides guidance for cutoff [...] Standards of Medical Care in Diabetes 2016, [place] [employer]. Diabetes Care. 2016.39(Suppl 1). Performed By: #### 2 777-1, 73252-7, ####[facility] LABORATORYCLIA [id number] [place] [address] [place] Potassium [Moles/Vol] 3.9 mmol/L Normal 3.7-5.1 [facility] Comment on above: Order Comment: Shira feldman Type: BLOOD SPECIMENOrdering Facility: [facility] Address: [address] [place] [address] Performed By: #### 2 777-1, 13052-1, ####[facility] LABORATORYCLIA [id number] [place] [address] [place] Sodium [Moles/Vol] 132 mmol/L Low 136-144 [facility] Comment on above: Order Comment: Speci men Type: BLOOD SPECIMENOrdering Facility: [facility] Address: [address] [place] [address] Performed By: #### 2 777-1, 74077-8, ####[facility] LABORATORYCLIA [id number] [address] [facility] Urea nitrogen [Mass/Vol] 38 mg/dL High 9-24 [facility] Comment on above: Order Comment: Speci men Type: BLOOD SPECIMENOrdering Facility: [facility] Address: [address] [place] [address] Performed By: #### 2 777-1, 30653-1, ####[facility] LABORATORYCLIA [id number] [address] [place] CBC W Auto Differential pane l (Bld)on 07-30-2021 Basophils (Bld) [#/Vol] 0.04 10*3/uL Normal <0.11 [facility] Comment on above: Order Comment: Speci men Type: BLOOD SPECIMENOrdering Facility: [facility] Address: [address] [place] [address] Performed By: #### 5 7021-8 ####[facility] LABORATORYCLIA [id number] [address] [place] Basophils/100 WBC (Bld) 0.4 % Normal [facility] Comment on above: Order Comment: Speci men Type: BLOOD SPECIMENOrdering Facility: [facility] Address: [address] [place] [address] Performed By: #### 5 7021-8 ####[facility] LABORATORYCLIA [id number] [address] Differential cell count method Nom (Bld) Auto Normal [facility] Comment on above: Order Comment: Speci men Type: BLOOD SPECIMENOrdering Facility: [facility] Address: [address] [place] [address] Performed By: #### 5 7021-8 ####[facility]ORATORYCLIA [id number] [address] [place] Eosinophils (Bld) [#/Vol] 0.30 10*3/uL Normal <0.46 [facility] Comment on above: Order Comment: Speci men Type: BLOOD SPECIMENOrdering Facility: [facility] Address: [address] [place] [address] Performed By: #### 5 7021-8 ####[facility] LABORATORYCLIA [id number] [address] Eosinophils/100 WBC (Bld) 2.7 % Normal [facility] Comment on above: Order Comment: Speci men Type: BLOOD SPECIMENOrdering Facility: [facility] Address: [address] [place] [address] Performed By: #### 5 7021-8 ####[facility] LABORATORYCLIA [id number] [address] Erythrocyte distribution width (RBC) [Ratio] 17.2 % High 11.5-15.0 [facility] Comment on above: Order Comment: Speci men Type: BLOOD SPECIMENOrdering Facility: [facility] Address: [address] [place] [address] Performed By: #### 5 7021-8 ####[facility] LABORATORYCLIA [id number] [address] [place] Hematocrit (Bld) [Volume fraction] 30.8 % Low 39.0-51.0 [facility] Comment on above: Order Comment: Speci men Type: BLOOD SPECIMENOrdering Facility: [facility] Address: [address] [place] [address] Performed By: #### 5 7021-8 ####[facility] LABORATORYCLIA [id number] [address] Hemoglobin (Bld) [Mass/Vol] 9.4 g/dL Low 13.0-17.0 [facility] Comment on above: Order Comment: Speci men Type: BLOOD SPECIMENOrdering Facility: [facility] Address: [address] [place] [address] Performed By: #### 5 7021-8 ####[facility]ORATORYCLIA [id number] [address] IMMATURE GRAN % 0.5 % Normal [facility] Comment on above: Order Comment: Speci men Type: BLOOD SPECIMENOrdering Facility: [facility] Address: [address] [place] [address] Performed By: #### 5 7021-8 ####[facility] LABORATORYCLIA [id number] [address] IMMATURE GRAN ABS 0.06 k/uL Normal <0.10 [facility] Comment on above: Order Comment: Speci men Type: BLOOD SPECIMENOrdering Facility: [facility] Address: [address] [place] [address] Performed By: #### 5 7021-8 ####[facility] LABORATORYCLIA [id number] [address] Lymphocytes (Bld) [#/Vol] 1.68 10*3/uL Normal 1.00-4.00 [facility] Comment on above: Order Comment: Speci men Type: BLOOD SPECIMENOrdering Facility: [facility] Address: [address] [place] [address] Performed By: #### 5 7021-8 ####[facility] LABORATORYCLIA [id number] [address] Lymphocytes/100 WBC (Bld) 15.3 % Normal [facility] Comment on above: Order Comment: Speci men Type: BLOOD SPECIMENOrdering Facility: [facility] Address: [address] [place] [address] Performed By: #### 5 7021-8 ####[facility]ORATORYCLIA [id number] [address] [place] MCH (RBC) [Entitic mass] 28.0 pg Normal 26.0-34.0 [facility] Comment on above: Order Comment: Speci men Type: BLOOD SPECIMENOrdering Facility: [facility] Address: [address] [place] [address] Performed By: #### 5 7021-8 ####[facility] LABORATORYCLIA [id number] [address] MCHC (RBC) [Mass/Vol] 30.5 g/dL Normal 30.5-36.0 [facility] Comment on above: Order Comment: Speci men Type: BLOOD SPECIMENOrdering Facility: [facility] Address: [address] [place] [address] Performed By: #### 5 7021-8 ####[facility] LABORATORYCLIA [id number] [address] MCV (RBC) [Entitic vol] 91.7 fL Normal 80.0-100.0 [facility] Comment on above: Order Comment: Speci men Type: BLOOD SPECIMENOrdering Facility: [facility] Address: [address] [place] [address] Performed By: #### 5 7021-8 ####[facility] LABORATORYCLIA [id number] [address] Monocytes (Bld) [#/Vol] 0.53 10*3/uL Normal <0.87 [facility] Comment on above: Order Comment: Speci men Type: BLOOD SPECIMENOrdering Facility: [facility] Address: [address] [place] [address] Performed By: #### 5 7021-8 ####[facility] LABORATORYCLIA [id number] [address] Monocytes/100 WBC (Bld) 4.8 % Normal [facility] Comment on above: Order Comment: Speci men Type: BLOOD SPECIMENOrdering Facility: [facility] Address: [address] [place] [address] Performed By: #### 5 7021-8 ####[facility] LABORATORYCLIA [id number] [place] [address] [place] Neutrophils (Bld) [#/Vol] 8.39 10*3/uL High 1.45-7.50 [facility] Comment on above: Order Comment: Speci men Type: BLOOD SPECIMENOrdering Facility: [facility] Address: [address] [place] [address] Performed By: #### 5 7021-8 ####[facility] LABORATORYCLIA [id number] [address] [place] Neutrophils/100 WBC (Bld) 76.3 % Normal [facility] Comment on above: Order Comment: Speci men Type: BLOOD SPECIMENOrdering Facility: [facility] Address: [address] [place] [address] Performed By: #### 5 7021-8 ####[facility] LABORATORYCLIA [id number] [address] [place] Nucleated RBC (Bld) [#/Vol] 10*3/uL Normal <0.01 [facility] Comment on above: Order Comment: Speci men Type: BLOOD SPECIMENOrdering Facility: [facility] Address: [address] [place] [address] Performed By: #### 5 7021-8 ####[facility] LABORATORYCLIA [id number] [address] [place] Nucleated RBC/100 WBC (Bld) [Ratio] 0.0 /100 WBC Normal [facility] Comment on above: Order Comment: Speci men Type: BLOOD SPECIMENOrdering Facility: [facility] Address: [address] [place] [address] Performed By: #### 5 7021-8 ####[facility] LABORATORYCLIA [id number] [address] [place] Platelet mean volume (Bld) [Entitic vol] 10.9 fL Normal 9.0-12.7 [facility] Comment on above: Order Comment: Speci men Type: BLOOD SPECIMENOrdering Facility: [facility] Address: [address] [place] [address] Performed By: #### 5 7021-8 ####[facility] LABORATORYCLIA [id number] [address] Platelets (Bld) [#/Vol] 287 10*3/uL Normal 150-400 [facility] Comment on above: Order Comment: Speci men Type: BLOOD SPECIMENOrdering Facility: [facility] Address: [address] [place] [address] Performed By: #### 5 7021-8 ####[facility] LABORATORYCLIA [id number] [address] OF [facility] RBC (Bld) [#/Vol] 3.36 10*6/uL Low 4.20-6.00 [facility] Comment on above: Order Comment: Speci men Type: BLOOD SPECIMENOrdering Facility: [facility] Address: [address] [place] [address] Performed By: #### 5 7021-8 ####[facility] LABORATORYCLIA [id number] [address] WBC (Bld) [#/Vol] 11.00 10*3/uL Normal 3.70-11.00 [facility] Comment on above: Order Comment: Speci men Type: BLOOD SPECIMENOrdering Facility: [facility] Address: [address] [place] [address] Performed By: #### 5 7021-8 ####[facility] LABORATORYCLIA [id number] [address] CSF MANUAL DIFFon 07-30-2021 DIF TTL, CSF 100 cells counted Normal [facility] Comment on above: Order Comment: Speci men Type: CEREBROSPINAL FLUIDOrdering Facility: [facility] Address: [address] [place] [address] Performed By: #### L [id number], WDF4839, 98920-0 ####[facility] LABORATORYCLIA [id number] [address] EOSIN%, CSF 0 % Normal [facility] Comment on above: Order Comment: Speci men Type: CEREBROSPINAL FLUIDOrdering Facility: [facility] Address: [address] [place] [address] Performed By: #### L [id number], GOQ5248, 07707-8 ####[facility]ORATORYCLIA [id number] [place] [address] [place] LYMPH%, CSF 75 % Normal 50-90 [facility] Comment on above: Order Comment: Speci men Type: CEREBROSPINAL FLUIDOrdering Facility: [facility] Address: [address] [place] [address] Performed By: #### L [id number], BIA3584, 42831-2 ####[facility]ORATORYCLIA [id number] [place] [address] [place] MACRO%, CSF 9 % High <1 [facility] Comment on above: Order Comment: Speci men Type: CEREBROSPINAL FLUIDOrdering Facility: [facility] Address: [address] [place] [address] Performed By: #### L [id number], PBO0769, 04696-8 ####[facility]ORATORYCLIA [id number] [place] [address] [place] MONO%, CSF 10 % Normal 10-50 [facility] Comment on above: Order Comment: Speci men Type: CEREBROSPINAL FLUIDOrdering Facility: [facility] Address: [address] [place] [address] Performed By: #### L [id number], PPM9901, 23535-1 ####[facility]ORATORYCLIA [id number] [address] [place] OTHER CL%, CSF 4 % Normal [facility] Comment on above: Order Comment: Speci men Type: CEREBROSPINAL FLUIDOrdering Facility: [facility] Address: [address] [place] [address] Result Comment: Path review to follow. Performed By: #### L [id number], TMX8868, 44126-0 ####[facility]ORATORYCLIA [id number] [address] [place] REAC LYMPH %, CSF 2 % Normal [facility] Comment on above: Order Comment: Speci men Type: CEREBROSPINAL FLUIDOrdering Facility: [facility] Address: [address] [place] [address] Performed By: #### L [id number], JTV2828, 96148-8 ####[facility]ATORYCLIA [id number] [address] [place] CSF PATHOLOGIST INTERP (LAB REFLEX ORDER-NO BILL)on 07-30-2021 CSF STAFF REVIEW Negative Normal [facility] Comment on above: Order Comment: Speci men Type: CEREBROSPINAL FLUIDOrdering Facility: [facility] Address: [address] [place] [address] Performed By: #### L CS8540, LEV6764, 22721-3 ####[facility]ORATORYCLIA [id number] [address] Pathologist name Reviewed by Eloise rebolledo MD Normal [facility] Comment on above: Order Comment: Speci men Type: CEREBROSPINAL FLUIDOrdering Facility: [facility] Address: [address] [place] [address] Performed By: #### L [id number], [id number], [id number] ####[facility] LABORATORYCLIA [id number] [address] [place] BRAIN WO IVCONon 07-31-[address] BRAIN WO IVCON Normal [facility] Cell count panel (CSF)on Clarity (CSF) Clear Normal Clear [facility] Comment on above: Order Comment: Speci men Type: CEREBROSPINAL FLUIDOrdering Facility: [facility] Address: [address] [place] [address] Performed By: #### L [id number], DFA7099, 43027-9 ####[facility]ORATORYCLIA [id number] [address] [place] Clarity (Unsp spec) Clear Normal Clear [facility] Comment on above: Order Comment: Speci men Type: CEREBROSPINAL FLUIDOrdering Facility: [facility] Address: [address] [address] Performed By: #### L [id number], XZO7917, 03499-6 ####[facility] LABORATORYCLIA [id number] [address] Color (CSF) Colorless Normal Colorless [facility] Comment on above: Order Comment: Speci men Type: CEREBROSPINAL FLUIDOrdering Facility: [facility] Address: [address] [place] [address] Performed By: #### L [id number], IZR4819, 27632-5 ####[facility] LABORATORYCLIA [id number] [address] Color (Spun CSF) Colorless Normal Colorless [facility] Comment on above: Order Comment: Speci men Type: CEREBROSPINAL FLUIDOrdering Facility: [facility] Address: [address] [place] [address] Performed By: #### L QV6789, UXS0399, 42608-3 ####[facility] LABORATORYCLIA [id number] [address] CSF TUBE NUMBER [employer] Normal [facility] Comment on above: Order Comment: Speci men Type: CEREBROSPINAL FLUIDOrdering Facility: [facility] Address: [address] [place] [address] Performed By: #### L UC1116, HAX9205, 36103-2 ####[facility] LABORATORYCLIA [id number] [address] RBC Manual cnt (CSF) [#/Vol] 9 cells/uL High 0-5 [facility] Comment on above: Order Comment: Speci men Type: CEREBROSPINAL FLUIDOrdering Facility: [facility] Address: [address] [place] [address] Performed By: #### L PE4428, RRD3370, 73491-2 ####[facility] LABORATORYCLIA [id number] [address] WBC Manual cnt (CSF) [#/Vol] 8 cells/uL High 0-5 [facility] Comment on above: Order Comment: Speci men Type: CEREBROSPINAL FLUIDOrdering Facility: [facility] Address: [address] [place] [address] Performed By: #### L PF3588, TIQ3378, 73293-7 ####[facility] LABORATORYCLIA [id number] [address] Glucose CSF-ncon Glucose (CSF) [Mass/Vol] 65 mg/dL Normal 40-70 [facility] Comment on above: Order Comment: Speci men Type: CEREBROSPINAL FLUIDOrdering Facility: [facility] Address: [address] [place] [address] Result Comment: Lumb ar CSF glucose values of healthy patients are approximately 60% of the plasma values and must always be compared with a concurrently measured plasma value for adequate clinical interpretation.References: 1. Glucose HK (GLUC3) [package insert V 12.0 Spanish]. [employer], [place], [place]. September 2015. 2. Michelle Moore, Loki, H. (2015). Chapter 7: Glucose and Lactate. Marianela Alcocer al.(eds.), Cerebrospinal Fluid in Clinical Neurology. Braxton: [employer]. Performed By: #### 2 342-4, 2880-3 ####[facility] LABORATORYCLIA [id number] [address] OF [facility] Magnesium SerPl-[facility] 07-30 Magnesium [Mass/Vol] 2.5 mg/dL High 1.7-2.3 [facility] Comment on above: Order Comment: Speci men Type: BLOOD SPECIMENOrdering Facility: [facility] Address: [address] [place] [address] Performed By: #### 2 777-1, 31159-1, 18965-9 ####[facility] LABORATORYCLIA [id number] [address] [place] NURSING PROGon 07-30-2021 NURSING PROG Normal [facility] Phosphate SerPl-mCncon 07-30 Phosphate [Mass/Vol] 2.4 mg/dL Low 2.7-4.8 [facility] Comment on above: Order Comment: Speci men Type: BLOOD SPECIMENOrdering Facility: [facility] Address: [address] [place] [address] Performed By: #### 2 777-1, 83066-5, 04268-4 ####[facility] LABORATORYCLIA [id number] [place] [address] [place] Prot CSF-mCncon 07-30-2021 Protein (CSF) [Mass/Vol] 50 mg/dL High 15-45 [facility] Comment on above: Order Comment: Speci men Type: CEREBROSPINAL FLUIDOrdering Facility: [facility] Address: [address] [place] [address] Performed By: #### 2 342-4, 2880-3 ####[facility] HOSPITALCLIA [id number] [place] [address] [place] aPTT PPPon 07-30-2021 aPTT Coag (PPP) [Time] 64.1 s High 23.0-32.4 [facility] Comment on above: Order Comment: Speci men Type: BLOOD SPECIMENOrdering Facility: [facility] Address: [address] [place] [address] Performed By: #### 1 4979-9 ####[facility] LABORATORYCLIA [id number] [address] [place] Bacteria CSF Culton 07-30-19 22 Bacteria identified Cx Nom (CSF) CULTURE, CSF: No growth 14 days GRAM STAIN: No cells or organisms seen Gram stain performed on cytospun specimen. Gram stain confirmed by microbiology Normal [facility] Comment on above: Performed By: #### 6 06-4 ####[facility] LABORATORYCLIA [id number] [place] [address] [place] CASE MANAGEMon 07-29-2021 CASE MANAGEM Normal [facility] CBC W Auto Differential pane l (Bld)on 07-29-2021 Basophils (Bld) [#/Vol] 0.03 10*3/uL Normal <0.11 [facility] Comment on above: Order Comment: Speci men Type: BLOOD SPECIMENOrdering Facility: [facility] Address: [address] [address] Performed By: #### 5 7021-8 ####[facility]ORATORYCLIA [id number] [place] [address] [place] Basophils/100 WBC (Bld) 0.3 % Normal [facility] Comment on above: Order Comment: Speci men Type: BLOOD SPECIMENOrdering Facility: [facility] Address: [address] [place] [address] Performed By: #### 5 7021-8 ####[facility] LABORATORYCLIA [id number] [address] STATES OF [facility] Differential cell count method Nom (Bld) Auto Normal [facility] Comment on above: Order Comment: Speci men Type: BLOOD SPECIMENOrdering Facility: [facility] Address: [address] [place] [address] Performed By: #### 5 7021-8 ####[facility] LABORATORYCLIA [id number] [place] [address] [place] Eosinophils (Bld) [#/Vol] 0.40 10*3/uL Normal <0.46 [facility] Comment on above: Order Comment: Speci men Type: BLOOD SPECIMENOrdering Facility: [facility] Address: [address] [address] Performed By: #### 5 7021-8 ####[facility]ORATORYCLIA [id number] [address] [place] Eosinophils/100 WBC (Bld) 3.9 % Normal [facility] Comment on above: Order Comment: Speci men Type: BLOOD SPECIMENOrdering Facility: [facility] Address: [address] [place] [address] Performed By: #### 5 7021-8 ####[facility] LABORATORYCLIA [id number] [address] Erythrocyte distribution width (RBC) [Ratio] 17.1 % High 11.5-15.0 [facility] Comment on above: Order Comment: Speci men Type: BLOOD SPECIMENOrdering Facility: [facility] Address: [address] [place] [address] Performed By: #### 5 7021-8 ####[facility] LABORATORYCLIA [id number] [address] OF [facility] Hematocrit (Bld) [Volume fraction] 32.0 % Low 39.0-51.0 [facility] Comment on above: Order Comment: Speci men Type: BLOOD SPECIMENOrdering Facility: [facility] Address: [address] [place] [address] Performed By: #### 5 7021-8 ####[facility] LABORATORYCLIA [id number] [address] Hemoglobin (Bld) [Mass/Vol] 9.7 g/dL Low 13.0-17.0 [facility] Comment on above: Order Comment: Speci men Type: BLOOD SPECIMENOrdering Facility: [facility] Address: [address] [place] [address] Performed By: #### 5 7021-8 ####[facility] LABORATORYCLIA [id number] [address] IMMATURE GRAN % 0.6 % Normal [facility] Comment on above: Order Comment: Speci men Type: BLOOD SPECIMENOrdering Facility: [facility] Address: [address] [place] [address] Performed By: #### 5 7021-8 ####[facility] LABORATORYCLIA [id number] [address] IMMATURE GRAN ABS 0.06 k/uL Normal <0.10 [facility] Comment on above: Order Comment: Speci men Type: BLOOD SPECIMENOrdering Facility: [facility] Address: [address] [address] Performed By: #### 5 7021-8 ####[facility] LABORATORYCLIA [id number] [address] [place] Lymphocytes (Bld) [#/Vol] 1.96 10*3/uL Normal 1.00-4.00 [facility] Comment on above: Order Comment: Speci men Type: BLOOD SPECIMENOrdering Facility: [facility] Address: [address] [place] [address] Performed By: #### 5 7021-8 ####[facility] LABORATORYCLIA [id number] [address] Lymphocytes/100 WBC (Bld) 19.0 % Normal [facility] Comment on above: Order Comment: Speci men Type: BLOOD SPECIMENOrdering Facility: [facility] Address: [address] [place] [address] Performed By: #### 5 7021-8 ####[facility] LABORATORYCLIA [id number] [address] STATES OF [facility] MCH (RBC) [Entitic mass] 28.0 pg Normal 26.0-34.0 [facility] Comment on above: Order Comment: Speci men Type: BLOOD SPECIMENOrdering Facility: [facility] Address: [address] [place] [address] Performed By: #### 5 7021-8 ####[facility] LABORATORYCLIA [id number] [address] [place] MCHC (RBC) [Mass/Vol] 30.3 g/dL Low 30.5-36.0 [facility] Comment on above: Order Comment: Speci men Type: BLOOD SPECIMENOrdering Facility: [facility] Address: [address] [place] [address] Performed By: #### 5 7021-8 ####[facility] LABORATORYCLIA [id number] [address] [place] MCV (RBC) [Entitic vol] 92.5 fL Normal 80.0-100.0 [facility] Comment on above: Order Comment: Speci men Type: BLOOD SPECIMENOrdering Facility: [facility] Address: [address] [place] [address] Performed By: #### 5 7021-8 ####[facility] LABORATORYCLIA [id number] [place] [address] [place] Monocytes (Bld) [#/Vol] 0.53 10*3/uL Normal <0.87 [facility] Comment on above: Order Comment: Speci men Type: BLOOD SPECIMENOrdering Facility: [facility] Address: [address] [place] [address] Performed By: #### 5 7021-8 ####[facility] LABORATORYCLIA [id number] [place] [address] [place] Monocytes/100 WBC (Bld) 5.2 % Normal [facility] Comment on above: Order Comment: Speci men Type: BLOOD SPECIMENOrdering Facility: [facility] Address: [address] [place] [address] Performed By: #### 5 7021-8 ####[facility]ORATORYCLIA [id number] [place] [address] [place] Neutrophils (Bld) [#/Vol] 7.31 10*3/uL Normal 1.45-7.50 [facility] Comment on above: Order Comment: Speci men Type: BLOOD SPECIMENOrdering Facility: [facility] Address: [address] [place] [address] Performed By: #### 5 7021-8 ####[facility] LABORATORYCLIA [id number] [place] [address] [place] Neutrophils/100 WBC (Bld) 71.0 % Normal [facility] Comment on above: Order Comment: Speci men Type: BLOOD SPECIMENOrdering Facility: [facility] Address: [address] [place] [address] Performed By: #### 5 7021-8 ####[facility]ATORYCLIA [id number] [address] [place] Nucleated RBC (Bld) [#/Vol] 10*3/uL Normal <0.01 [facility] Comment on above: Order Comment: Speci men Type: BLOOD SPECIMENOrdering Facility: [facility] Address: [address] [place] [address] Performed By: #### 5 7021-8 ####[facility] LABORATORYCLIA [id number] [address] [place] Nucleated RBC/100 WBC (Bld) [Ratio] 0.0 /100 WBC Normal [facility] Comment on above: Order Comment: Speci men Type: BLOOD SPECIMENOrdering Facility: [facility] Address: [address] [place] [address] Performed By: #### 5 7021-8 ####[facility] LABORATORYCLIA [id number] [address] [place] Platelet mean volume (Bld) [Entitic vol] 11.2 fL Normal 9.0-12.7 [facility] Comment on above: Order Comment: Speci men Type: BLOOD SPECIMENOrdering Facility: [facility] Address: [address] [place] [address] Performed By: #### 5 7021-8 ####[facility] LABORATORYCLIA [id number] [address] [place] Platelets (Bld) [#/Vol] 276 10*3/uL Normal 150-400 [facility] Comment on above: Order Comment: Speci men Type: BLOOD SPECIMENOrdering Facility: [facility] Address: [address] [place] [address] Performed By: #### 5 7021-8 ####[facility] LABORATORYCLIA [id number] [address] [place] RBC (Bld) [#/Vol] 3.46 10*6/uL Low 4.20-6.00 [facility] Comment on above: Order Comment: Speci men Type: BLOOD SPECIMENOrdering Facility: [facility] Address: [facility] [place] [address] Performed By: #### 5 7021-8 ####[facility] LABORATORYCLIA [id number] [place] [address] [place] [facility] WBC (Bld) [#/Vol] 10.29 10*3/uL Normal 3.70-11.00 [facility] Comment on above: Order Comment: Speci men Type: BLOOD SPECIMENOrdering Facility: [facility] Address: [address] [place] [address] Performed By: #### 5 7021-8 ####[facility] LABORATORYCLIA [id number] [address] OF [facility] NURSING PROGon 07-29-2021 NURSING PROG Normal [facility] THERAPY NTon 07-29-2021 THERAPY NT Normal [facility] aPTT PPPon 07-29-2021 aPTT Coag (PPP) [Time] 59.2 s High 23.0-32.4 [facility] Comment on above: Order Comment: Speci men Type: BLOOD SPECIMENOrdering Facility: [facility] Address: [address] [place] [address] Performed By: #### 1 4979-9 ####[facility] LABORATORYCLIA [id number] [address] [place] ALLIED HEALTHon 07-28-2021 ALLIED HEALTH Normal [facility] Basic metabolic 2000 panelon 07-28-2021 Anion gap [Moles/Vol] 7 mmol/L Low 9-18 [facility] Comment on above: Order Comment: Speci men Type: BLOOD SPECIMENOrdering Facility: [facility] Address: [address] [place] [address] Performed By: #### 1 4338-8, 32223-8, 2777-1, 80527-8 ####[facility] LABORATORYCLIA [id number] [address] [place] Calcium [Mass/Vol] 9.0 mg/dL Normal 8.5-10.2 [facility] Comment on above: Order Comment: Speci men Type: BLOOD SPECIMENOrdering Facility: [facility] Address: [address] [place] [address] Performed By: #### 1 4338-8, 38536-0, 277-, 95590-8 ####[facility] LABORATORYCLIA [id number] [place] [address] [place] Chloride [Moles/Vol] 94 mmol/L Low 97-105 [facility] Comment on above: Order Comment: Speci men Type: BLOOD SPECIMENOrdering Facility: [facility] Address: [address] [place] [address] Performed By: #### 1 4338-8, 58340-1, 27711-04, 65067-6 ####[facility]PITALCLIA [id number] [place] [address] [place] CO2 [Moles/Vol] 31 mmol/L High 22-30 [facility] Comment on above: Order Comment: Speci men Type: BLOOD SPECIMENOrdering Facility: [facility] Address: [address] [place] [address] Performed By: #### 1 4338-8, , 2776-05, 69380-8 ####[facility] LABORATORYCLIA [id number] [address] [place] Creatinine [Mass/Vol] 0.75 mg/dL Normal 0.73-1.22 [facility] Comment on above: Order Comment: Speci men Type: BLOOD SPECIMENOrdering Facility: [facility] Address: [address] [place] [address] Performed By: #### 1 4338-8, 11722-9, 2776-05, 61652-8 ####[facility] LABORATORYCLIA [id number] [address] STATES OF [facility] ESTIMATED GLOMERULAR FILTRATION RATE 98 mL/min/1.73m??? Normal >=60 [facility] Comment on above: Order Comment: Speci men Type: BLOOD SPECIMENOrdering Facility: [facility] Address: [address] [place] [address] Result Comment: Luzmaria mated Glomerular Filtration Rate [...] actual GFR. Performed By: #### 1 4338-8, 05026-8, 2777-1, 93315-0 ####[facility]PITALCLIA [id number] [address] [id number] [place] Glucose [Mass/Vol] 122 mg/dL High 74-99 [facility] Comment on above: Order Comment: Shira feldman Type: BLOOD SPECIMENOrdering Facility: [facility] Address: [address] [place], [place] [id number] Result Comment: The [place] Diabetes [employer] (ADA) provides guidance for cutoff [...] Standards of Medical Care in Diabetes 2016, [place] [employer]. Diabetes Care. 2016.39(Suppl 1). Performed By: #### 1 4338-8, 65154-9, 2777-1, 04319-6 ####[facility] LABORATORYCLIA [id number] [place] [id number] [place] Potassium [Moles/Vol] 4.0 mmol/L Normal 3.7-5.1 [facility] Comment on above: Order Comment: Shira feldman Type: BLOOD SPECIMENOrdering Facility: [facility] Address: [address] [place] [address] Performed By: #### 1 4338-8, 00516-8, 2777-1, 36331-2 ####[facility] LABORATORYCLIA [id number] [address] [facility] Sodium [Moles/Vol] 132 mmol/L Low 136-144 [facility] Comment on above: Order Comment: Speci men Type: BLOOD SPECIMENOrdering Facility: [facility] Address: [address] [place] [address] Performed By: #### 1 4338-8, 29754-8, 2777-1, 09042-0 ####[facility]ORATORYCLIA [id number] [address] [place] Urea nitrogen [Mass/Vol] 34 mg/dL High 01-28 [facility] Comment on above: Order Comment: Speci men Type: BLOOD SPECIMENOrdering Facility: [facility] Address: [address] [place] [address] Performed By: #### 1 4338-8, 66610-0, 2777-1, 88835-1 ####[facility]ORATORYCLIA [id number] [address] CBC W Auto Differential pane l (Bld)on 07-28-2021 Basophils (Bld) [#/Vol] 0.04 10*3/uL Normal <0.11 [facility] Comment on above: Order Comment: Speci men Type: BLOOD SPECIMENOrdering Facility: [facility] Address: [address] [place] [address] Performed By: #### 5 7021-8 ####[facility] LABORATORYCLIA [id number] [address] [facility] Basophils/100 WBC (Bld) 0.5 % Normal [facility] Comment on above: Order Comment: Speci men Type: BLOOD SPECIMENOrdering Facility: [facility] Address: [address] [place] [address] Performed By: #### 5 7021-8 ####[facility] LABORATORYCLIA [id number] [address] Differential cell count method Nom (Bld) Auto Normal [facility] Comment on above: Order Comment: Speci men Type: BLOOD SPECIMENOrdering Facility: [facility] Address: [address] [place] [address] Performed By: #### 5 7021-8 ####[facility] LABORATORYCLIA [id number] [address] [place] Eosinophils (Bld) [#/Vol] 0.30 10*3/uL Normal <0.46 [facility] Comment on above: Order Comment: Speci men Type: BLOOD SPECIMENOrdering Facility: [facility] Address: [address] [place] [address] Performed By: #### 5 7021-8 ####[facility] LABORATORYCLIA [id number] [address] Eosinophils/100 WBC (Bld) 3.4 % Normal [facility] Comment on above: Order Comment: Speci men Type: BLOOD SPECIMENOrdering Facility: [facility] Address: [address] [place] [address] Performed By: #### 5 7021-8 ####[facility] LABORATORYCLIA [id number] [address] Erythrocyte distribution width (RBC) [Ratio] 16.9 % High 11.5-15.0 [facility] Comment on above: Order Comment: Speci men Type: BLOOD SPECIMENOrdering Facility: [facility] Address: [address] [place] [address] Performed By: #### 5 7021-8 ####[facility] LABORATORYCLIA [id number] [address] Hematocrit (Bld) [Volume fraction] 30.3 % Low 39.0-51.0 [facility] Comment on above: Order Comment: Speci men Type: BLOOD SPECIMENOrdering Facility: [facility] Address: [address] [place] [address] Performed By: #### 5 7021-8 ####[facility] LABORATORYCLIA [id number] [address] STATES OF [facility] Hemoglobin (Bld) [Mass/Vol] 9.2 g/dL Low 13.0-17.0 [facility] Comment on above: Order Comment: Speci men Type: BLOOD SPECIMENOrdering Facility: [facility] Address: [address] [place] [address] Performed By: #### 5 7021-8 ####[facility] LABORATORYCLIA [id number] [address] IMMATURE GRAN % 0.6 % Normal [facility] Comment on above: Order Comment: Speci men Type: BLOOD SPECIMENOrdering Facility: [facility] Address: [address] [place] [address] Performed By: #### 5 7021-8 ####[facility]ORATORYCLIA [id number] [address] IMMATURE GRAN ABS 0.05 k/uL Normal <0.10 [facility] Comment on above: Order Comment: Speci men Type: BLOOD SPECIMENOrdering Facility: [facility] Address: [address] [place] [address] Performed By: #### 5 7021-8 ####[facility] LABORATORYCLIA [id number] [address] [place] Lymphocytes (Bld) [#/Vol] 1.68 10*3/uL Normal 1.00-4.00 [facility] Comment on above: Order Comment: Speci men Type: BLOOD SPECIMENOrdering Facility: [facility] Address: [address] [place] [address] Performed By: #### 5 7021-8 ####[facility] LABORATORYCLIA [id number] [address] Lymphocytes/100 WBC (Bld) 19.2 % Normal [facility] Comment on above: Order Comment: Speci men Type: BLOOD SPECIMENOrdering Facility: [facility] Address: [address] [place] [address] Performed By: #### 5 7021-8 ####[facility] LABORATORYCLIA [id number] [address] MCH (RBC) [Entitic mass] 28.4 pg Normal 26.0-34.0 [facility] Comment on above: Order Comment: Speci men Type: BLOOD SPECIMENOrdering Facility: [facility] Address: [address] [place] [address] Performed By: #### 5 7021-8 ####[facility] LABORATORYCLIA [id number] [address] MCHC (RBC) [Mass/Vol] 30.4 g/dL Low 30.5-36.0 [facility] Comment on above: Order Comment: Speci men Type: BLOOD SPECIMENOrdering Facility: [facility] Address: [address] [place] [address] Performed By: #### 5 7021-8 ####[facility] LABORATORYCLIA [id number] [address] MCV (RBC) [Entitic vol] 93.5 fL Normal 80.0-100.0 [facility] Comment on above: Order Comment: Speci men Type: BLOOD SPECIMENOrdering Facility: [facility] Address: [address] [place] [address] Performed By: #### 5 7021-8 ####[facility] LABORATORYCLIA [id number] [address] Monocytes (Bld) [#/Vol] 0.58 10*3/uL Normal <0.87 [facility] Comment on above: Order Comment: Speci men Type: BLOOD SPECIMENOrdering Facility: [facility] Address: [address] [place] [address] Performed By: #### 5 7021-8 ####[facility] LABORATORYCLIA [id number] [address] Monocytes/100 WBC (Bld) 6.6 % Normal [facility] Comment on above: Order Comment: Speci men Type: BLOOD SPECIMENOrdering Facility: [facility] Address: [address] [place] [address] Performed By: #### 5 7021-8 ####[facility] LABORATORYCLIA [id number] [place] [address] [place] Neutrophils (Bld) [#/Vol] 6.11 10*3/uL Normal 1.45-7.50 [facility] Comment on above: Order Comment: Speci men Type: BLOOD SPECIMENOrdering Facility: [facility] Address: [address] [place] [address] Performed By: #### 5 7021-8 ####[facility]ATORYCLIA [id number] [address] [place] Neutrophils/100 WBC (Bld) 69.7 % Normal [facility] Comment on above: Order Comment: Speci men Type: BLOOD SPECIMENOrdering Facility: [facility] Address: [address] [place] [address] Performed By: #### 5 7021-8 ####[facility] LABORATORYCLIA [id number] [address] [place] Nucleated RBC (Bld) [#/Vol] 10*3/uL Normal <0.01 [facility] Comment on above: Order Comment: Speci men Type: BLOOD SPECIMENOrdering Facility: [facility] Address: [address] [place] [address] Performed By: #### 5 7021-8 ####[facility] LABORATORYCLIA [id number] [address] [place] Nucleated RBC/100 WBC (Bld) [Ratio] 0.0 /100 WBC Normal [facility] Comment on above: Order Comment: Speci men Type: BLOOD SPECIMENOrdering Facility: [facility] Address: [address] [place] [address] Performed By: #### 5 7021-8 ####[facility] LABORATORYCLIA [id number] [address] [place] Platelet mean volume (Bld) [Entitic vol] 11.3 fL Normal 9.0-12.7 [facility] Comment on above: Order Comment: Speci men Type: BLOOD SPECIMENOrdering Facility: [facility] Address: [address] [place] [address] Performed By: #### 5 7021-8 ####[facility] LABORATORYCLIA [id number] [place] [address] [place] Platelets (Bld) [#/Vol] 238 10*3/uL Normal 150-400 [facility] Comment on above: Order Comment: Speci men Type: BLOOD SPECIMENOrdering Facility: [facility] Address: [address] [place] [address] Performed By: #### 5 7021-8 ####[facility] LABORATORYCLIA [id number] [place] [address] [place] RBC (Bld) [#/Vol] 3.24 10*6/uL Low 4.20-6.00 [facility] Comment on above: Order Comment: Speci men Type: BLOOD SPECIMENOrdering Facility: [facility] Address: [address] [place] [address] Performed By: #### 5 7021-8 ####[facility] LABORATORYCLIA [id number] [place] [address] [place] WBC (Bld) [#/Vol] 8.76 10*3/uL Normal 3.70-11.00 [facility] Comment on above: Order Comment: Speci men Type: BLOOD SPECIMENOrdering Facility: [facility] Address: [address] [place] [address] Performed By: #### 5 7021-8 ####[facility] LABORATORYCLIA [id number] [address] [place] MRI BRAIN WO/W IVCONon 07-28 MRI BRAIN WO/W IVCON Normal [facility] Magnesium SerPl-mCncon 07-28 Magnesium [Mass/Vol] 2.5 mg/dL High 1.7-2.3 [facility] Comment on above: Order Comment: Speci men Type: BLOOD SPECIMENOrdering Facility: [facility] Address: [address] [place] [address] Performed By: #### 1 4338-8, 77607-7, 2777-1, 29764-6 ####[facility] LABORATORYCLIA [id number] [address] STATES OF [facility] NURSING PROGon 07-28-2021 NURSING PROG Normal [facility] NURSING PROG Normal [facility] Phosphate SerPl-mCncon 07-28 Phosphate [Mass/Vol] 2.8 mg/dL Normal 2.7-4.8 [facility] Comment on above: Order Comment: Speci men Type: BLOOD SPECIMENOrdering Facility: [facility] Address: [address] [place] [address] Performed By: #### 1 4338-8, 05841-4, 2777-1, 25647-7 ####[facility] LABORATORYCLIA [id number] [address] [place] Prealbumin [Mass/Vol]on 07-06 Prealbumin Nephelometry [Mass/Vol] 25 mg/dL Normal 17-36 [facility] Comment on above: Order Comment: Speci men Type: BLOOD SPECIMENOrdering Facility: [facility] Address: [address] [place] [address] Performed By: #### 1 4338-8, 73930-5, 2777-1, 54916-3 ####[facility] LABORATORYCLIA [id number] [address] [place] aPTT PPPon 07-28-2021 aPTT Coag (PPP) [Time] 53.0 s High 23.0-32.4 [facility] Comment on above: Order Comment: Speci men Type: BLOOD SPECIMENOrdering Facility: [facility] Address: [address] [address] Performed By: #### 1 4979-9 ####[facility] LABORATORYCLIA [id number] [address] [place] aPTT Coag (PPP) [Time] 57.2 s High 23.0-32.4 [facility] Comment on above: Order Comment: Speci men Type: BLOOD SPECIMENOrdering Facility: [facility] Address: [address] [place] [address] Performed By: #### 1 4979-9 ####[facility] LABORATORYCLIA [id number] [address] [place] Bacteria CSF Culton 07-28-19 22 Bacteria identified Cx Nom (CSF) CULTURE, CSF: No growth 14 days GRAM STAIN: No organisms seen Rare Polymorphonuclear leukocytes Rare Red Blood Cells Gram stain performed on cytospun specimen. Normal [facility] Comment on above: Performed By: #### 6 06-4 ####[facility] LABORATORYCLIA [id number] [address] [place] Bacteria Spec Resp Culton Bacteria identified Respiratory culture Nom (Unsp spec) CULTURE, RESPIRATORY: Rare Normal respiratory chris present GRAM STAIN: No organisms seen Rare Polymorphonuclear leukocytes Rare Epithelial cells Normal [facility] Comment on above: Performed By: #### 3 2355-0 ####[facility] LABORATORYCLIA [id number] [address] [place] CASE MANAGEMon 07-27-2021 CASE MANAGEM Normal [facility] CBC W Auto Differential pane l (Bld)on 07-27-2021 Basophils (Bld) [#/Vol] 0.04 10*3/uL Normal <0.11 [facility] Comment on above: Order Comment: Speci men Type: BLOOD SPECIMENOrdering Facility: [facility] Address: [address] [id number] Performed By: #### 5 7021-8 ####[facility] LABORATORYCLIA [id number] [address] [place] Basophils/100 WBC (Bld) 0.4 % Normal [facility] Comment on above: Order Comment: Speci men Type: BLOOD SPECIMENOrdering Facility: [facility] Address: [address] [place] [address] Performed By: #### 5 7021-8 ####[facility] LABORATORYCLIA [id number] [address] Differential cell count method Nom (Bld) Auto Normal [facility] Comment on above: Order Comment: Speci men Type: BLOOD SPECIMENOrdering Facility: [facility] Address: [address] [place] [address] Performed By: #### 5 7021-8 ####[facility] LABORATORYCLIA [id number] [address] [place] Eosinophils (Bld) [#/Vol] 0.50 10*3/uL High <0.46 [facility] Comment on above: Order Comment: Speci men Type: BLOOD SPECIMENOrdering Facility: [facility] Address: [address] [place] [address] Performed By: #### 5 7021-8 ####[facility] LABORATORYCLIA [id number] [address] Eosinophils/100 WBC (Bld) 5.2 % Normal [facility] Comment on above: Order Comment: Speci men Type: BLOOD SPECIMENOrdering Facility: [facility] Address: [address] [place] [address] Performed By: #### 5 7021-8 ####[facility] LABORATORYCLIA [id number] [address] [place] Erythrocyte distribution width (RBC) [Ratio] 16.8 % High 11.5-15.0 [facility] Comment on above: Order Comment: Speci men Type: BLOOD SPECIMENOrdering Facility: [facility] Address: [address] [place] [address] Performed By: #### 5 7021-8 ####[facility]ORATORYCLIA [id number] [address] OF [facility] Hematocrit (Bld) [Volume fraction] 29.8 % Low 39.0-51.0 [facility] Comment on above: Order Comment: Speci men Type: BLOOD SPECIMENOrdering Facility: [facility] Address: [address] [place] [address] Performed By: #### 5 7021-8 ####[facility] LABORATORYCLIA [id number] [address] Hemoglobin (Bld) [Mass/Vol] 9.0 g/dL Low 13.0-17.0 [facility] Comment on above: Order Comment: Speci men Type: BLOOD SPECIMENOrdering Facility: [facility] Address: [address] [place] [address] Performed By: #### 5 7021-8 ####[facility] LABORATORYCLIA [id number] [address] IMMATURE GRAN % 0.6 % Normal [facility] Comment on above: Order Comment: Speci men Type: BLOOD SPECIMENOrdering Facility: [facility] Address: [address] [place] [address] Performed By: #### 5 7021-8 ####[facility] LABORATORYCLIA [id number] [address] IMMATURE GRAN ABS 0.06 k/uL Normal <0.10 [facility] Comment on above: Order Comment: Speci men Type: BLOOD SPECIMENOrdering Facility: [facility] Address: [address] [place] [address] Performed By: #### 5 7021-8 ####[facility] LABORATORYCLIA [id number] [address] Lymphocytes (Bld) [#/Vol] 1.73 10*3/uL Normal 1.00-4.00 [facility] Comment on above: Order Comment: Speci men Type: BLOOD SPECIMENOrdering Facility: [facility] Address: [address] [place] [address] Performed By: #### 5 7021-8 ####[facility] LABORATORYCLIA [id number] [address] Lymphocytes/100 WBC (Bld) 17.9 % Normal [facility] Comment on above: Order Comment: Speci men Type: BLOOD SPECIMENOrdering Facility: [facility] Address: [address] [place] [address] Performed By: #### 5 7021-8 ####[facility]ORATORYCLIA [id number] [address] MCH (RBC) [Entitic mass] 28.1 pg Normal 26.0-34.0 [facility] Comment on above: Order Comment: Speci men Type: BLOOD SPECIMENOrdering Facility: [facility] Address: [address] [place] [address] Performed By: #### 5 7021-8 ####[facility] LABORATORYCLIA [id number] [address] MCHC (RBC) [Mass/Vol] 30.2 g/dL Low 30.5-36.0 [facility] Comment on above: Order Comment: Speci men Type: BLOOD SPECIMENOrdering Facility: [facility] Address: [address] [place] [address] Performed By: #### 5 7021-8 ####[facility]ORATORYCLIA [id number] [address] MCV (RBC) [Entitic vol] 93.1 fL Normal 80.0-100.0 [facility] Comment on above: Order Comment: Speci men Type: BLOOD SPECIMENOrdering Facility: [facility] Address: [address] [place] [address] Performed By: #### 5 7021-8 ####[facility] LABORATORYCLIA [id number] [address] Monocytes (Bld) [#/Vol] 0.59 10*3/uL Normal <0.87 [facility] Comment on above: Order Comment: Speci men Type: BLOOD SPECIMENOrdering Facility: [facility] Address: [address] [place] [address] Performed By: #### 5 7021-8 ####[facility] LABORATORYCLIA [id number] [address] [facility] Monocytes/100 WBC (Bld) 6.1 % Normal [facility] Comment on above: Order Comment: Speci men Type: BLOOD SPECIMENOrdering Facility: [facility] Address: [address] [place] [address] Performed By: #### 5 7021-8 ####[facility] LABORATORYCLIA [id number] [address] [place] Neutrophils (Bld) [#/Vol] 6.75 10*3/uL Normal 1.45-7.50 [facility] Comment on above: Order Comment: Speci men Type: BLOOD SPECIMENOrdering Facility: [facility] Address: [address] [place] [address] Performed By: #### 5 7021-8 ####[facility]ORATORYCLIA [id number] [address] Neutrophils/100 WBC (Bld) 69.8 % Normal [facility] Comment on above: Order Comment: Speci men Type: BLOOD SPECIMENOrdering Facility: [facility] Address: [address] [place] [address] Performed By: #### 5 7021-8 ####[facility] LABORATORYCLIA [id number] [address] [place] Nucleated RBC (Bld) [#/Vol] 10*3/uL Normal <0.01 [facility] Comment on above: Order Comment: Speci men Type: BLOOD SPECIMENOrdering Facility: [facility] Address: [address] [place] [address] Performed By: #### 5 7021-8 ####[facility]ORATORYCLIA [id number] [address] [place] Nucleated RBC/100 WBC (Bld) [Ratio] 0.0 /100 WBC Normal [facility] Comment on above: Order Comment: Speci men Type: BLOOD SPECIMENOrdering Facility: [facility] Address: [address] [place] [address] Performed By: #### 5 7021-8 ####[facility]ORATORYCLIA [id number] [address] [place] Platelet mean volume (Bld) [Entitic vol] 11.3 fL Normal 9.0-12.7 [facility] Comment on above: Order Comment: Speci men Type: BLOOD SPECIMENOrdering Facility: [facility] Address: [address] [place] [address] Performed By: #### 5 7021-8 ####[facility]ORATORYCLIA [id number] [address] [place] Platelets (Bld) [#/Vol] 227 10*3/uL Normal 150-400 [facility] Comment on above: Order Comment: Speci men Type: BLOOD SPECIMENOrdering Facility: [facility] Address: [address] [place] [address] Performed By: #### 5 7021-8 ####[facility]ORATORYCLIA [id number] [address] [place] RBC (Bld) [#/Vol] 3.20 10*6/uL Low 4.20-6.00 [facility] Comment on above: Order Comment: Speci men Type: BLOOD SPECIMENOrdering Facility: [facility] Address: [address] [place] [address] Performed By: #### 5 7021-8 ####[facility] LABORATORYCLIA [id number] [address] [place] WBC (Bld) [#/Vol] 9.67 10*3/uL Normal 3.70-11.00 [facility] Comment on above: Order Comment: Speci men Type: BLOOD SPECIMENOrdering Facility: [facility] Address: [address] [place] [address] Performed By: #### 5 7021-8 ####[facility] LABORATORYCLIA [id number] [address] OF [facility] CONSULT PROGon 07-27-2021 CONSULT PROG Normal [facility] CSF MANUAL DIFFon 07-27-2021 DIF TTL, CSF 100 cells counted Normal [facility] Comment on above: Order Comment: Speci men Type: CEREBROSPINAL FLUIDOrdering Facility: [facility] Address: [address] [place] [address] Performed By: #### L [id number], 52513-5, [id number] ####[facility]ORATORYCLIA [id number] [address] [place] LYMPH%, CSF 75 % Normal 50-90 [facility] Comment on above: Order Comment: Speci men Type: CEREBROSPINAL FLUIDOrdering Facility: [facility] Address: [address] [place] [address] Performed By: #### L [id number], 16105-7, [id number] ####[facility] LABORATORYCLIA [id number] [place] [address] [place] MONO%, CSF 22 % Normal 10-50 [facility] Comment on above: Order Comment: Speci men Type: CEREBROSPINAL FLUIDOrdering Facility: [facility] Address: [address] [place] [address] Performed By: #### L TQ7585, 78241-9, [id number] ####[facility]ATORYCLIA [id number] [place] [address] [place] NEUT%, CSF 2 % Normal 0-3 [facility] Comment on above: Order Comment: Speci men Type: CEREBROSPINAL FLUIDOrdering Facility: [facility] Address: [address] [place] [address] Performed By: #### L RR1479, 63127-0, [id number] ####[facility]ATORYCLIA [id number] [address] OTHER CL%, CSF 1 % Normal [facility] Comment on above: Order Comment: Speci men Type: CEREBROSPINAL FLUIDOrdering Facility: [facility] Address: [address] [place] [address] Result Comment: Path ologist review of microscopy results to follow Performed By: #### L IB1230, 00678-3, [id number] ####[facility]ATORYCLIA [id number] [address] [place] CSF PATHOLOGIST INTERP (LAB REFLEX ORDER-NO BILL)on 07-27-2021 CSF STAFF REVIEW Negative Normal [facility] Comment on above: Order Comment: Speci men Type: CEREBROSPINAL FLUIDOrdering Facility: [facility] Address: [address] [place] [address] Performed By: #### L IP9007, 01460-6, [id number] ####[facility] LABORATORYCLIA [id number] [address] Pathologist name Reviewed by Amador Stevens MD [facility] Comment on above: Order Comment: Speci men Type: CEREBROSPINAL FLUIDOrdering Facility: [facility] Address: [address] [place] [address] Performed By: #### L [id number], 60686-5, [id number] ####[facility] LABORATORYCLIA [id number] [address] Cell count panel (CSF)on Clarity (CSF) Clear Normal Clear [facility] Comment on above: Order Comment: Speci men Type: CEREBROSPINAL FLUIDOrdering Facility: [facility] Address: [address] [place] [address] Performed By: #### L [id number], 35480-9, [id number] ####[facility]ATORYCLIA [id number] [address] Clarity (Unsp spec) Not Indicated Normal Clear [facility] Comment on above: Order Comment: Speci men Type: CEREBROSPINAL FLUIDOrdering Facility: [facility] Address: [address] [address] Performed By: #### L [id number], 87761-2, [id number] ####[facility]ATORYCLIA [id number] [address] Color (CSF) Colorless Normal Colorless [facility] Comment on above: Order Comment: Speci men Type: CEREBROSPINAL FLUIDOrdering Facility: [facility] Address: [address] [place] [address] Performed By: #### L [id number], 85793-5, [id number] ####[facility] LABORATORYCLIA [id number] [address] Color (Spun CSF) Not Indicated Normal Colorless [facility] Comment on above: Order Comment: Speci men Type: CEREBROSPINAL FLUIDOrdering Facility: [facility] Address: [address] [place] [address] Performed By: #### L SE9858, 19851-3, [id number] ####[facility] LABORATORYCLIA [id number] [address] CSF TU[employer] Normal [facility] Comment on above: Order Comment: Speci men Type: CEREBROSPINAL FLUIDOrdering Facility: [facility] Address: [address] [place] [address] Performed By: #### L [id number], 02038-6, [id number] ####[facility]ATORYCLIA [id number] [address] RBC Manual cnt (CSF) [#/Vol] 39 cells/uL High 0-5 [facility] Comment on above: Order Comment: Speci men Type: CEREBROSPINAL FLUIDOrdering Facility: [facility] Address: [address] [place] [address] Performed By: #### L [id number], 32398-1, [id number] ####[facility]ATORYCLIA [id number] [address] WBC Manual cnt (CSF) [#/Vol] 14 cells/uL High 0-5 [facility] Comment on above: Order Comment: Speci men Type: CEREBROSPINAL FLUIDOrdering Facility: [facility] Address: [address] [place] [address] Performed By: #### L [id number], 00717-3, [id number] ####[facility] LABORATORYCLIA [id number] [place] [address] [place] Glucose CSF-ncon 2 Glucose (CSF) [Mass/Vol] 64 mg/dL Normal 40-70 [facility] Comment on above: Order Comment: Speci men Type: CEREBROSPINAL FLUIDOrdering Facility: [facility] Address: [address] [place] [address] Result Comment: Lumb ar CSF glucose values of healthy patients are approximately 60% of the plasma values and must always be compared with a concurrently measured plasma value for adequate clinical interpretation.References: 1. Glucose HK (GLUC3) [package insert V 12.0 Spanish]. [employer], [place], [place]. September 2015. 2. Michelle Moore, Loki HGarfield (2015). Chapter 7: Glucose and Lactate. F. Irina rose al.(eds.), Cerebrospinal Fluid in Clinical Neurology. [place]: [employer]. Performed By: #### 2 342-4, 2880-3 ####[facility] LABORATORYCLIA [id number] [place] [address] [place] NUTRITIONon 07-27-2021 NUTRITION Normal [facility] Prot CSF-ncon 07-27-2021 Protein (CSF) [Mass/Vol] 58 mg/dL High 15-45 [facility] Comment on above: Order Comment: Speci men Type: CEREBROSPINAL FLUIDOrdering Facility: [facility] Address: [address] [place] [address] Performed By: #### 2 342-4, 2880-3 ####[facility] LABORATORYCLIA [id number] [place] [address] [place] aPTT PPPon 07-27-2021 aPTT Coag (PPP) [Time] 68.4 s High 23.0-32.4 [facility] Comment on above: Order Comment: Speci men Type: BLOOD SPECIMENOrdering Facility: [facility] Address: [address] [place] [address] Performed By: #### 1 4979-9 ####[facility] LABORATORYCLIA [id number] [address] aPTT Coag (PPP) [Time] 51.3 s High 23.0-32.4 [facility] Comment on above: Order Comment: Speci men Type: BLOOD SPECIMENOrdering Facility: [facility] Address: [address] [place] [address] Performed By: #### 1 4979-9 ####[facility] LABORATORYCLIA [id number] [address] ALLIED HEALTHon 07-26-2021 ALLIED HEALTH HNO ID: [id number] Author: Stephanie Maldonado, payroll master Service: Radiology Author Type: Measurement Analyst Type: Allied Health Filed: 07/26/2021 4:10 PM Note Text: Spoke with nurse. Pt getting new EVD today. Try tomorrow. Normal [facility] Bacteria CSF Culton 07-27-19 Bacteria identified Cx Nom (CSF) Abnormal [facility] Comment on above: Performed By: #### 6 06-4 ####[facility] LABORATORYCLIA [id number] [address] STATES OF [facility] Basic metabolic 2000 panelon 07-26-2021 Anion gap [Moles/Vol] 6 mmol/L Low 9-18 [facility] Comment on above: Order Comment: Speci men Type: BLOOD SPECIMENOrdering Facility: [facility] Address: [address] [place] [address] Performed By: #### 2 4321-2 ####[facility] LABORATORYCLIA [id number] [address] [place] Calcium [Mass/Vol] 9.2 mg/dL Normal 8.5-10.2 [facility] Comment on above: Order Comment: Speci men Type: BLOOD SPECIMENOrdering Facility: [facility] Address: [address] [address] Performed By: #### 2 4321-2 ####[facility] LABORATORYCLIA [id number] [address] [place] Chloride [Moles/Vol] 99 mmol/L Normal 97-105 [facility] Comment on above: Order Comment: Speci men Type: BLOOD SPECIMENOrdering Facility: [facility] Address: [address] [place] [address] Performed By: #### 2 4321-2 ####[facility] LABORATORYCLIA [id number] [address] [place] CO2 [Moles/Vol] 32 mmol/L High 22-30 [facility] Comment on above: Order Comment: Speci men Type: BLOOD SPECIMENOrdering Facility: [facility] Address: [address] [place] [address] Performed By: #### 2 4321-2 ####[facility] LABORATORYCLIA [id number] [address] [place] Creatinine [Mass/Vol] 0.74 mg/dL Normal 0.73-1.22 [facility] Comment on above: Order Comment: Speci men Type: BLOOD SPECIMENOrdering Facility: [facility] Address: [address] [place] [address] Performed By: #### 2 4321-2 ####[facility] LABORATORYCLIA [id number] [address] ESTIMATED GLOMERULAR FILTRATION RATE 98 mL/min/1.73m??? Normal >=60 [facility] Comment on above: Order Comment: Speci men Type: BLOOD SPECIMENOrdering Facility: [facility] Address: [address] [place] [address] Result Comment: Luzmaria mated Glomerular Filtration Rate [...] actual GFR. Performed By: #### 2 4321-2 ####[facility] LABORATORYCLIA [id number] [place] [address] [place] Glucose [Mass/Vol] 126 mg/dL High 74-99 [facility] Comment on above: Order Comment: Shira feldman Type: BLOOD SPECIMENOrdering Facility: [facility] Address: [address] [place] [address] Result Comment: The [place] Diabetes Association (ADA) provides guidance for cutoff [...] Standards of Medical Care in Diabetes 2016, [place] [employer]. Diabetes Care. 2016.39(Suppl 1). Performed By: #### 2 4321-2 ####[facility] LABORATORYCLIA [id number] [place] [address] [place] Potassium [Moles/Vol] 4.2 mmol/L Normal 3.7-5.1 [facility] Comment on above: Order Comment: Shira feldman Type: BLOOD SPECIMENOrdering Facility: [facility] Address: [address] [address] Performed By: #### 2 4321-2 ####[facility] LABORATORYCLIA [id number] [place] [address] [place] Sodium [Moles/Vol] 137 mmol/L Normal 136-144 [facility] Comment on above: Order Comment: Shira feldman Type: BLOOD SPECIMENOrdering Facility: [facility] Address: [address] [address] Performed By: #### 2 4321-2 ####[facility] LABORATORYCLIA [id number] [address] [facility] Urea nitrogen [Mass/Vol] 36 mg/dL High 9-24 [facility] Comment on above: Order Comment: Speci men Type: BLOOD SPECIMENOrdering Facility: [facility] Address: [address] [place] [address] Performed By: #### 2 4321-2 ####[facility] LABORATORYCLIA [id number] [address] [place] CBC W Auto Differential pane l (Bld)on 07-26-2021 Basophils (Bld) [#/Vol] 0.04 10*3/uL Normal <0.11 [facility] Comment on above: Order Comment: Speci men Type: BLOOD SPECIMENOrdering Facility: [facility] Address: [address] [place] [address] Performed By: #### 5 7021-8 ####[facility] LABORATORYCLIA [id number] [address] [facility] Basophils/100 WBC (Bld) 0.4 % Normal [facility] Comment on above: Order Comment: Speci men Type: BLOOD SPECIMENOrdering Facility: [facility] Address: [address] [place] [address] Performed By: #### 5 7021-8 ####[facility] LABORATORYCLIA [id number] [address] Differential cell count method Nom (Bld) Auto Normal [facility] Comment on above: Order Comment: Speci men Type: BLOOD SPECIMENOrdering Facility: [facility] Address: [address] [place] [address] Performed By: #### 5 7021-8 ####[facility] LABORATORYCLIA [id number] [address] [place] Eosinophils (Bld) [#/Vol] 0.63 10*3/uL High <0.46 [facility] Comment on above: Order Comment: Speci men Type: BLOOD SPECIMENOrdering Facility: [facility] Address: [address] [place] [address] Performed By: #### 5 7021-8 ####[facility] LABORATORYCLIA [id number] [address] [place] Eosinophils/100 WBC (Bld) 5.8 % Normal [facility] Comment on above: Order Comment: Speci men Type: BLOOD SPECIMENOrdering Facility: [facility] Address: [address] [place] [address] Performed By: #### 5 7021-8 ####[facility] LABORATORYCLIA [id number] [address] Erythrocyte distribution width (RBC) [Ratio] 16.8 % High 11.5-15.0 [facility] Comment on above: Order Comment: Speci men Type: BLOOD SPECIMENOrdering Facility: [facility] Address: [address] [place] [address] Performed By: #### 5 7021-8 ####[facility] LABORATORYCLIA [id number] [address] Hematocrit (Bld) [Volume fraction] 31.2 % Low 39.0-51.0 [facility] Comment on above: Order Comment: Speci men Type: BLOOD SPECIMENOrdering Facility: [facility] Address: [address] [place] [address] Performed By: #### 5 7021-8 ####[facility] LABORATORYCLIA [id number] [address] [place] Hemoglobin (Bld) [Mass/Vol] 9.1 g/dL Low 13.0-17.0 [facility] Comment on above: Order Comment: Speci men Type: BLOOD SPECIMENOrdering Facility: [facility] Address: [address] [place] [address] Performed By: #### 5 7021-8 ####[facility] LABORATORYCLIA [id number] [address] IMMATURE GRAN % 0.6 % Normal [facility] Comment on above: Order Comment: Speci men Type: BLOOD SPECIMENOrdering Facility: [facility] Address: [address] [place] [address] Performed By: #### 5 7021-8 ####[facility] LABORATORYCLIA [id number] [address] IMMATURE GRAN ABS 0.07 k/uL Normal <0.10 [facility] Comment on above: Order Comment: Speci men Type: BLOOD SPECIMENOrdering Facility: [facility] Address: [address] [place] [address] Performed By: #### 5 7021-8 ####[facility] LABORATORYCLIA [id number] [address] Lymphocytes (Bld) [#/Vol] 2.16 10*3/uL Normal 1.00-4.00 [facility] Comment on above: Order Comment: Speci men Type: BLOOD SPECIMENOrdering Facility: [facility] Address: [address] [place] [address] Performed By: #### 5 7021-8 ####[facility] LABORATORYCLIA [id number] [address] Lymphocytes/100 WBC (Bld) 20.0 % Normal [facility] Comment on above: Order Comment: Speci men Type: BLOOD SPECIMENOrdering Facility: [facility] Address: [address] [place] [address] Performed By: #### 5 7021-8 ####[facility] LABORATORYCLIA [id number] [address] [facility] MCH (RBC) [Entitic mass] 27.7 pg Normal 26.0-34.0 [facility] Comment on above: Order Comment: Speci men Type: BLOOD SPECIMENOrdering Facility: [facility] Address: [address] [place] [address] Performed By: #### 5 7021-8 ####[facility] LABORATORYCLIA [id number] [address] STATES OF [facility] MCHC (RBC) [Mass/Vol] 29.2 g/dL Low 30.5-36.0 [facility] Comment on above: Order Comment: Speci men Type: BLOOD SPECIMENOrdering Facility: [facility] Address: [address] [place] [address] Performed By: #### 5 7021-8 ####[facility] LABORATORYCLIA [id number] [address] MCV (RBC) [Entitic vol] 95.1 fL Normal 80.0-100.0 [facility] Comment on above: Order Comment: Speci men Type: BLOOD SPECIMENOrdering Facility: [facility] Address: [address] [place] [address] Performed By: #### 5 7021-8 ####[facility] LABORATORYCLIA [id number] [address] [place] Monocytes (Bld) [#/Vol] 0.63 10*3/uL Normal <0.87 [facility] Comment on above: Order Comment: Speci men Type: BLOOD SPECIMENOrdering Facility: [facility] Address: [address] [place] [address] Performed By: #### 5 7021-8 ####[facility] LABORATORYCLIA [id number] [address] Monocytes/100 WBC (Bld) 5.8 % Normal [facility] Comment on above: Order Comment: Speci men Type: BLOOD SPECIMENOrdering Facility: [facility] Address: [address] [place] [address] Performed By: #### 5 7021-8 ####[facility] LABORATORYCLIA [id number] [address] [place] Neutrophils (Bld) [#/Vol] 7.25 10*3/uL Normal 1.45-7.50 [facility] Comment on above: Order Comment: Speci men Type: BLOOD SPECIMENOrdering Facility: [facility] Address: [address] [place] [address] Performed By: #### 5 7021-8 ####[facility] LABORATORYCLIA [id number] [address] Neutrophils/100 WBC (Bld) 67.4 % Normal [facility] Comment on above: Order Comment: Speci men Type: BLOOD SPECIMENOrdering Facility: [facility] Address: [address] [place] [address] Performed By: #### 5 7021-8 ####[facility] LABORATORYCLIA [id number] [address] Nucleated RBC (Bld) [#/Vol] 10*3/uL Normal <0.01 [facility] Comment on above: Order Comment: Speci men Type: BLOOD SPECIMENOrdering Facility: [facility] Address: [address] [place] [address] Performed By: #### 5 7021-8 ####[facility] LABORATORYCLIA [id number] [address] Nucleated RBC/100 WBC (Bld) [Ratio] 0.0 /100 WBC Normal [facility] Comment on above: Order Comment: Speci men Type: BLOOD SPECIMENOrdering Facility: [facility] Address: [address] [place] [address] Performed By: #### 5 7021-8 ####[facility] LABORATORYCLIA [id number] [address] Platelet mean volume (Bld) [Entitic vol] 11.2 fL Normal 9.0-12.7 [facility] Comment on above: Order Comment: Speci men Type: BLOOD SPECIMENOrdering Facility: [facility] Address: [address] [place] [address] Performed By: #### 5 7021-8 ####[facility] LABORATORYCLIA [id number] [address] OF [place] Platelets (Bld) [#/Vol] 245 10*3/uL Normal 150-400 [facility] Comment on above: Order Comment: Speci men Type: BLOOD SPECIMENOrdering Facility: [facility] Address: [address] [place], [place] [address] Performed By: #### 5 7021-8 ####[facility] LABORATORYCLIA [id number] [address] STATES OF [facility] RBC (Bld) [#/Vol] 3.28 10*6/uL Low 4.20-6.00 [facility] Comment on above: Order Comment: Speci men Type: BLOOD SPECIMENOrdering Facility: [facility] Address: [address] [place], [place] [address] Performed By: #### 5 7021-8 ####[facility] LABORATORYCLIA [id number] [address] STATES OF [facility] WBC (Bld) [#/Vol] 10.78 10*3/uL Normal 3.70-11.00 [facility] Comment on above: Order Comment: Speci men Type: BLOOD SPECIMENOrdering Facility: [facility] Address: [address] [place] [address] Performed By: #### 5 7021-8 ####[facility] LABORATORYCLIA [id number] [address] OF [facility] CSF MANUAL DIFFon 07-26-2021 DIF TTL, CSF 100 cells counted Normal [facility] Comment on above: Order Comment: Speci men Type: CEREBROSPINAL FLUIDOrdering Facility: [facility] Address: [address] [place], [place] [address] Performed By: #### 3 4563-7, [id number], [id number] ####[facility] LABORATORYCLIA [id number] [address] [place] LYMPH%, CSF 26 % Low 50-90 [facility] Comment on above: Order Comment: Speci men Type: CEREBROSPINAL FLUIDOrdering Facility: [facility] Address: [address] [place], [place] [address] Performed By: #### 3 4563-7, [id number], [id number] ####[facility]ORATORYCLIA [id number] [place] [address] [place] MACRO%, CSF 10 % High <1 [facility] Comment on above: Order Comment: Speci men Type: CEREBROSPINAL FLUIDOrdering Facility: [facility] Address: [address] [place] [address] Performed By: #### 3 4563-7, [id number], [id number] ####[facility]ORATORYCLIA [id number] [place] [address] [place] MONO%, CSF 20 % Normal 10-50 [facility] Comment on above: Order Comment: Speci men Type: CEREBROSPINAL FLUIDOrdering Facility: [facility] Address: [address] [place] [address] Performed By: #### 3 4563-7, [id number], [id number] ####[facility]ORATORYCLIA [id number] [place] [address] [place] NEUT%, CSF 40 % High 0-3 [facility] Comment on above: Order Comment: Speci men Type: CEREBROSPINAL FLUIDOrdering Facility: [facility] Address: [address] [place] [address] Performed By: #### 3 4563-7, [id number], [id number] ####[facility]ORATORYCLIA [id number] [address] OF [place] OTHER CL%, CSF 2 % Normal [facility] Comment on above: Order Comment: Speci men Type: CEREBROSPINAL FLUIDOrdering Facility: [facility] Address: [address] [place] [address] Result Comment: Path review to follow. Performed By: #### 3 4563-7, [id number], [id number] ####[facility]ORATORYCLIA [id number] [place] [address] [place] REAC LYMPH %, CSF 2 % Normal [facility] Comment on above: Order Comment: Speci men Type: CEREBROSPINAL FLUIDOrdering Facility: [facility] Address: [address] [place] [address] Performed By: #### 3 4563-7, [id number], [id number] ####[facility] LABORATORYCLIA [id number] [address] CSF PATHOLOGIST INTERP (LAB REFLEX ORDER-NO BILL)on 07-26-2021 CSF STAFF REVIEW Negative for maligna nt cells. Rare bacteria present, cocci in pairs and chains. Correlation with CSF cultures is recommended. Normal [facility] Comment on above: Order Comment: Speci men Type: CEREBROSPINAL FLUIDOrdering Facility: [facility] Address: [address] [place] [address] Performed By: #### 3 4563-7, [id number], [id number] ####[facility] LABORATORYCLIA [id number] [address] Pathologist name Reviewed by Amador Stevens MD [facility] Comment on above: Order Comment: Speci men Type: CEREBROSPINAL FLUIDOrdering Facility: [facility] Address: [address] [place] [address] Performed By: #### 3 4563-7, [id number], [id number] ####[facility] LABORATORYCLIA [id number] [address] [place] Cell count panel (CSF)on Clarity (CSF) Slightly Cloudy Abnormal Clear [facility] Comment on above: Order Comment: Speci men Type: CEREBROSPINAL FLUIDOrdering Facility: [facility] Address: [address] [place] [address] Performed By: #### 3 4563-7, [id number], [id number] ####[facility] LABORATORYCLIA [id number] [address] [place] Clarity (Unsp spec) Clear Normal Clear [facility] Comment on above: Order Comment: Speci men Type: CEREBROSPINAL FLUIDOrdering Facility: [facility] Address: [address] [place] [address] Performed By: #### 3 4563-7, [id number], [id number] ####[facility] LABORATORYCLIA [id number] [address] Color (CSF) Colorless Normal Colorless [facility] Comment on above: Order Comment: Speci men Type: CEREBROSPINAL FLUIDOrdering Facility: [facility] Address: [address] [place] [address] Performed By: #### 3 4563-7, [id number], [id number] ####[facility]ORATORYCLIA [id number] [address] Color (Spun CSF) Not Indicated Normal Colorless [facility] Comment on above: Order Comment: Speci men Type: CEREBROSPINAL FLUIDOrdering Facility: [facility] Address: [address] [place] [address] Performed By: #### 3 4563-7, [id number], [id number] ####[facility] LABORATORYCLIA [id number] [address] CSF TUBE [employer]BER [employer] Normal [facility] Comment on above: Order Comment: Speci men Type: CEREBROSPINAL FLUIDOrdering Facility: [facility] Address: [address] [place] [address] Performed By: #### 3 4563-7, [id number], [id number] ####[facility] LABORATORYCLIA [id number] [address] RBC Manual cnt (CSF) [#/Vol] 1 cells/uL Normal 0-[address] [place] [address] Comment on above: Order Comment: Speci men Type: CEREBROSPINAL FLUIDOrdering Facility: [facility] Address: [address] [address] Performed By: #### 3 4563-7, [id number], [id number] ####[facility]ORATORYCLIA [id number] [address] WBC Manual cnt (CSF) [#/Vol] 50 cells/uL High 0-5 [facility] Comment on above: Order Comment: Speci men Type: CEREBROSPINAL FLUIDOrdering Facility: [facility] Address: [address] [place] [address] Performed By: #### 3 4563-7, [id number], [id number] ####[facility] LABORATORYCLIA [id number] [place] [address] [place] Glucose CSF-mCncon Glucose (CSF) [Mass/Vol] 64 mg/dL Normal 40-70 [facility] Comment on above: Order Comment: Speci men Type: CEREBROSPINAL FLUIDOrdering Facility: [facility] Address: [address] [place] [address] Result Comment: Lumb ar CSF glucose values of healthy patients are approximately 60% of the plasma values and must always be compared with a concurrently measured plasma value for adequate clinical interpretation.References: 1. Glucose HK (GLUC3) [package insert V 12.0 Spanish]. [employer], [place], [place]. September 2015. 2. Michelle Moore, Loki HGarfield (2015). Chapter 7: Glucose and Lactate. F. Irina rose al.(eds.), Cerebrospinal Fluid in Clinical Neurology. Braxton: [employer]. Performed By: #### 2 880-3, 2342-4 ####[facility] LABORATORYCLIA [id number] [place] [address] [place] Magnesium SerPl-ncon 07-26 Magnesium [Mass/Vol] 2.3 mg/dL Normal 1.7-2.3 [facility] Comment on above: Order Comment: Speci men Type: BLOOD SPECIMENOrdering Facility: [facility] Address: [address] [place] [address] Performed By: #### 1 9123-9, 2777-1, 3016-3 ####[facility] LABORATORYCLIA [id number] [place] [address] [place] NURSING PROGon 07-26-2021 NURSING PROG Normal [facility] Phosphate SerPl-mCncon 07-26 Phosphate [Mass/Vol] 2.6 mg/dL Low 2.7-4.8 [facility] Comment on above: Order Comment: Speci men Type: BLOOD SPECIMENOrdering Facility: [facility] Address: [address] [place] [address] Performed By: #### 1 9123-9, 2777-1, 3016-3 ####[facility] LABORATORYCLIA [id number] [place] [address] [place] Prot CSF-mCncon 07-26-2021 Protein (CSF) [Mass/Vol] 64 mg/dL High 15-45 [facility] Comment on above: Order Comment: Speci men Type: CEREBROSPINAL FLUIDOrdering Facility: [facility] Address: [address] [place] [address] Performed By: #### 2 880-3, 2342-4 ####[facility] LABORATORYCLIA [id number] [address] OF [facility] THERAPY NTon 07-26-2021 THERAPY NT Normal [facility] TSH SerPl-aCncon 07-26-2021 TSH Qn 1.470 m[IU]/L Normal 0.270-4.200 [facility] Comment on above: Order Comment: Speci men Type: BLOOD SPECIMENOrdering Facility: [facility] Address: [address] [place] [address] Performed By: #### 1 9123-9, 2777-1, 3016-3 ####[facility] LABORATORYCLIA [id number] [address] [place] VITAMIN B12 BLOODon 07-27-19 Cobalamin (Vitamin B12) [Mass/Vol] 934 pg/mL Normal 232-1,245 [facility] Comment on above: Order Comment: Speci men Type: BLOOD SPECIMENOrdering Facility: [facility] Address: [address] [place] [address] Performed By: #### B 12 ####[facility] LABORATORYCLIA [id number] [place] [address] [place] aPTT PPPon 07-26-2021 aPTT Coag (PPP) [Time] 53.6 s High 23.0-32.4 [facility] Comment on above: Order Comment: Speci men Type: BLOOD SPECIMENOrdering Facility: [facility] Address: [address] [place] [address] Performed By: #### 1 4979-9 ####[facility] LABORATORYCLIA [id number] [address] aPTT Coag (PPP) [Time] 44.9 s High 23.0-32.4 [facility] Comment on above: Order Comment: Speci men Type: BLOOD SPECIMENOrdering Facility: [facility] Address: [address] [place] [address] Performed By: #### 1 4979-9 ####[facility] LABORATORYCLIA [id number] [address] ALLIED HEALTHon 07-25-2021 ALLIED HEALTH HNO ID: [id number] Author: RT Rajwinder(R) Service: Radiology Author Type: Technologist Type: Allied Health Filed: 07/25/2021 1:37 PM Note Text: Called floor for MRI screening form [id number] Normal [facility] Bacteria Bld Culton 07-26-19 22 Bacteria identified Cx Nom (Bld) CULTURE, BLOOD: No growth 5 days Normal [facility] Comment on above: Performed By: #### 6 00-7 ####[facility] LABORATORYCLIA [id number] [address] Bacteria identified Cx Nom (Bld) CULTURE, BLOOD: No growth 5 days Normal [facility] Comment on above: Performed By: #### 6 00-7 ####[facility] LABORATORYCLIA [id number] [address] CASE MANAGEMon 07-25-2021 CASE MANAGEM Normal [facility] CBC W Auto Differential pane l (Bld)on 07-25-2021 Basophils (Bld) [#/Vol] 0.06 10*3/uL Normal <0.11 [facility] Comment on above: Order Comment: Speci men Type: BLOOD SPECIMENOrdering Facility: [facility] Address: [address] [address] Performed By: #### 5 7021-8 ####[facility] LABORATORYCLIA [id number] [address] [facility] Basophils/100 WBC (Bld) 0.6 % Normal [facility] Comment on above: Order Comment: Speci men Type: BLOOD SPECIMENOrdering Facility: [facility] Address: [address] [place] [address] Performed By: #### 5 7021-8 ####[facility] LABORATORYCLIA [id number] [address] Differential cell count method Nom (Bld) Auto Normal [facility] Comment on above: Order Comment: Speci men Type: BLOOD SPECIMENOrdering Facility: [facility] Address: [address] [place] [address] Performed By: #### 5 7021-8 ####[facility] LABORATORYCLIA [id number] [address] [place] Eosinophils (Bld) [#/Vol] 0.26 10*3/uL Normal <0.46 [facility] Comment on above: Order Comment: Speci men Type: BLOOD SPECIMENOrdering Facility: [facility] Address: [address] [place] [address] Performed By: #### 5 7021-8 ####[facility]ORATORYCLIA [id number] [address] [facility] Eosinophils/100 WBC (Bld) 2.5 % Normal [facility] Comment on above: Order Comment: Speci men Type: BLOOD SPECIMENOrdering Facility: [facility] Address: [address] [place] [address] Performed By: #### 5 7021-8 ####[facility]ORATORYCLIA [id number] [address] [place] Erythrocyte distribution width (RBC) [Ratio] 16.9 % High 11.5-15.0 [facility] Comment on above: Order Comment: Speci men Type: BLOOD SPECIMENOrdering Facility: [facility] Address: [address] [place] [address] Performed By: #### 5 7021-8 ####[facility] LABORATORYCLIA [id number] [address] OF [facility] Hematocrit (Bld) [Volume fraction] 29.6 % Low 39.0-51.0 [facility] Comment on above: Order Comment: Speci men Type: BLOOD SPECIMENOrdering Facility: [facility] Address: [address] [place] [address] Performed By: #### 5 7021-8 ####[facility] LABORATORYCLIA [id number] [address] Hemoglobin (Bld) [Mass/Vol] 8.8 g/dL Low 13.0-17.0 [facility] Comment on above: Order Comment: Speci men Type: BLOOD SPECIMENOrdering Facility: [facility] Address: [address] [place] [address] Performed By: #### 5 7021-8 ####[facility] LABORATORYCLIA [id number] [address] IMMATURE GRAN % 0.6 % Normal [facility] Comment on above: Order Comment: Speci men Type: BLOOD SPECIMENOrdering Facility: [facility] Address: [address] [place] [address] Performed By: #### 5 7021-8 ####[facility] LABORATORYCLIA [id number] [address] IMMATURE GRAN ABS 0.06 k/uL Normal <0.10 [facility] Comment on above: Order Comment: Speci men Type: BLOOD SPECIMENOrdering Facility: [facility] Address: [address] [place] [address] Performed By: #### 5 7021-8 ####[facility] LABORATORYCLIA [id number] [address] OF [facility] Lymphocytes (Bld) [#/Vol] 2.15 10*3/uL Normal 1.00-4.00 [facility] Comment on above: Order Comment: Speci men Type: BLOOD SPECIMENOrdering Facility: [facility] Address: [address] [place] [address] Performed By: #### 5 7021-8 ####[facility] LABORATORYCLIA [id number] [address] Lymphocytes/100 WBC (Bld) 20.7 % Normal [facility] Comment on above: Order Comment: Speci men Type: BLOOD SPECIMENOrdering Facility: [facility] Address: [address] [place] [address] Performed By: #### 5 7021-8 ####[facility] LABORATORYCLIA [id number] [address] [facility] MCH (RBC) [Entitic mass] 28.2 pg Normal 26.0-34.0 [facility] Comment on above: Order Comment: Speci men Type: BLOOD SPECIMENOrdering Facility: [facility] Address: [address] [place] [address] Performed By: #### 5 7021-8 ####[facility] LABORATORYCLIA [id number] [address] STATES OF [facility] MCHC (RBC) [Mass/Vol] 29.7 g/dL Low 30.5-36.0 [facility] Comment on above: Order Comment: Speci men Type: BLOOD SPECIMENOrdering Facility: [facility] Address: [address] [place] [address] Performed By: #### 5 7021-8 ####[facility] LABORATORYCLIA [id number] [address] MCV (RBC) [Entitic vol] 94.9 fL Normal 80.0-100.0 [facility] Comment on above: Order Comment: Speci men Type: BLOOD SPECIMENOrdering Facility: [facility] Address: [address] [place] [address] Performed By: #### 5 7021-8 ####[facility] LABORATORYCLIA [id number] [place] [address] [place] Monocytes (Bld) [#/Vol] 0.62 10*3/uL Normal <0.87 [facility] Comment on above: Order Comment: Speci men Type: BLOOD SPECIMENOrdering Facility: [facility] Address: [address] [place] [address] Performed By: #### 5 7021-8 ####[facility]ORATORYCLIA [id number] [address] [place] Monocytes/100 WBC (Bld) 6.0 % Normal [facility] Comment on above: Order Comment: Speci men Type: BLOOD SPECIMENOrdering Facility: [facility] Address: [address] [place] [address] Performed By: #### 5 7021-8 ####[facility] LABORATORYCLIA [id number] [address] [place] Neutrophils (Bld) [#/Vol] 7.25 10*3/uL Normal 1.45-7.50 [facility] Comment on above: Order Comment: Speci men Type: BLOOD SPECIMENOrdering Facility: [facility] Address: [address] [place] [address] Performed By: #### 5 7021-8 ####[facility]ORATORYCLIA [id number] [address] [place] Neutrophils/100 WBC (Bld) 69.6 % Normal [facility] Comment on above: Order Comment: Speci men Type: BLOOD SPECIMENOrdering Facility: [facility] Address: [address] [place] [address] Performed By: #### 5 7021-8 ####[facility] LABORATORYCLIA [id number] [place] [address] [place] Nucleated RBC (Bld) [#/Vol] 10*3/uL Normal <0.01 [facility] Comment on above: Order Comment: Speci men Type: BLOOD SPECIMENOrdering Facility: [facility] Address: [address] [place] [address] Performed By: #### 5 7021-8 ####[facility] LABORATORYCLIA [id number] [address] [place] Nucleated RBC/100 WBC (Bld) [Ratio] 0.0 /100 WBC Normal [facility] Comment on above: Order Comment: Speci men Type: BLOOD SPECIMENOrdering Facility: [facility] Address: [address] [place] [address] Performed By: #### 5 7021-8 ####[facility] LABORATORYCLIA [id number] [place] [address] [place] Platelet mean volume (Bld) [Entitic vol] 11.3 fL Normal 9.0-12.7 [facility] Comment on above: Order Comment: Speci men Type: BLOOD SPECIMENOrdering Facility: [facility] Address: [address] [place] [address] Performed By: #### 5 7021-8 ####[facility] LABORATORYCLIA [id number] [place] [address] [place] Platelets (Bld) [#/Vol] 243 10*3/uL Normal 150-400 [facility] Comment on above: Order Comment: Speci men Type: BLOOD SPECIMENOrdering Facility: [facility] Address: [address] Performed By: #### 5 7021-8 ####[facility] LABORATORYCLIA [id number] [place] [address] [place] RBC (Bld) [#/Vol] 3.12 10*6/uL Low 4.20-6.00 [facility] Comment on above: Order Comment: Speci men Type: BLOOD SPECIMENOrdering Facility: [facility] Address: [address] [place] [address] Performed By: #### 5 7021-8 ####[facility] LABORATORYCLIA [id number] [place] [address] [place] WBC (Bld) [#/Vol] 10.40 10*3/uL Normal 3.70-11.00 [facility] Comment on above: Order Comment: Speci men Type: BLOOD SPECIMENOrdering Facility: [facility] Address: [address] [place] [address] Performed By: #### 5 7021-8 ####[facility] LABORATORYCLIA [id number] [address] [place] CONSULT PROGon 07-25-2021 CONSULT PROG Normal [facility] MYCOPLASMA PNEUM IGMon 07-25 M. PNEUMO IGM, QUAL Negative Normal Negative [facility] Comment on above: Order Comment: Speci men Type: BLOOD SPECIMENOrdering Facility: [facility] Address: [address] [place] [address] Result Comment: Myco plasma pneumoniae IgM antibody test is used as an aid in diagnosis of recent infection with M. pneumoniae. It may occasionally remain elevated for extended periods after an acute infection. Cannot exclude recent infection if the specimen collected 7-10 days after onset of signs and symptoms. Clinical correlation is required. Performed By: #### M YCOPM ####[facility] LABCLIA [id number] [facility] [id number] [place] [address] [place] NURSING PROGon 07-25-2021 NURSING PROG Normal [facility] THERAPY NTon 07-25-2021 THERAPY NT Normal [facility] THERAPY NT Normal [facility] aPTT PPPon 07-25-2021 aPTT Coag (PPP) [Time] 62.6 s High 23.0-32.4 [facility] Comment on above: Order Comment: Speci men Type: BLOOD SPECIMENOrdering Facility: [facility] Address: [address] [place] [address] Performed By: #### 1 4979-9 ####[facility] LABORATORYCLIA [id number] [address] [place] Bacteria Ur Culton 03-20-202 2 Bacteria identified Cx Nom (U) CULTURE, URINE: No growth (<100 CFU/ml) Normal [facility] Comment on above: Performed By: #### 6 30-4 ####[facility] LABORATORYCLIA [id number] [place] [address] [place] Basic metabolic 2000 panelon 07-24-2021 Anion gap [Moles/Vol] 13 mmol/L Normal 9-18 [facility] Comment on above: Order Comment: Speci men Type: BLOOD SPECIMENOrdering Facility: [facility] Address: [address] [place] [address] Performed By: #### 1 9123-9, PROCCARLITOS, 7-1, 21306-7 ####[facility] LABORATORYCLIA [id number] [place] [address] [place] Calcium [Mass/Vol] 9.5 mg/dL Normal 8.5-10.2 [facility] Comment on above: Order Comment: Speci men Type: BLOOD SPECIMENOrdering Facility: [facility] Address: [address] [address] Performed By: #### 1 9123-9, PROCAL, 2776-1, 35234-2 ####[facility] LABORATORYCLIA [id number] [address] [place] Chloride [Moles/Vol] 102 mmol/L Normal 97-105 [facility] Comment on above: Order Comment: Speci men Type: BLOOD SPECIMENOrdering Facility: [facility] Address: [address] [address] Performed By: #### 1 9123-9, PROCAL, 2776-1, 30168-7 ####[facility] LABORATORYCLIA [id number] [place] [address] [place] CO2 [Moles/Vol] 28 mmol/L Normal 22-30 [facility] Comment on above: Order Comment: Speci men Type: BLOOD SPECIMENOrdering Facility: [facility] Address: [address] [address] Performed By: #### 1 9123-9, PROCAL, 2777-1, 51222-5 ####[facility]ITALCLIA [id number] [address] STATES OF [facility] Creatinine [Mass/Vol] 0.86 mg/dL Normal 0.73-1.22 [facility] Comment on above: Order Comment: Speci men Type: BLOOD SPECIMENOrdering Facility: [facility] Address: [address] [address] Performed By: #### 1 9123-9, PROCNY, 2777-1, 09879-4 ####[facility]ITALCLIA [id number] [address] ESTIMATED GLOMERULAR FILTRATION RATE 94 mL/min/1.73m??? Normal >=60 [facility] Comment on above: Order Comment: Speci men Type: BLOOD SPECIMENOrdering Facility: [facility] Address: [address] [address] Result Comment: Luzmaria mated Glomerular Filtration Rate [...] actual GFR. Performed By: #### 1 9123-9, [facility], 2777-1, 51108-4 ####[facility] LABORATORYCLIA [id number] [address] [facility] Glucose [Mass/Vol] 148 mg/dL High 74-99 [facility] Comment on above: Order Comment: Speci men Type: BLOOD SPECIMENOrdering Facility: [facility] Address: [address] [address] Result Comment: The [place] Diabetes Association (ADA) provides guidance for cutoff [...] Standards of Medical Care in Diabetes 2016, [place] [employer]. Diabetes Care. 2016.39(Suppl 1). Performed By: #### 1 9123-9, KATIE, 2776-, 45328-6 ####[facility] LABORATORYCLIA [id number] [place] [address] [place] Potassium [Moles/Vol] 4.0 mmol/L Normal 3.7-5.1 [facility] Comment on above: Order Comment: Shira feldman Type: BLOOD SPECIMENOrdering Facility: [facility] Address: [address] [place] [address] Performed By: #### 1 9123-9, [facility], 2776-05, 02497-0 ####[facility]OSPITALCLIA [id number] [address] STATES OF [facility] Sodium [Moles/Vol] 143 mmol/L Normal 136-144 [facility] Comment on above: Order Comment: Shira feldman Type: BLOOD SPECIMENOrdering Facility: [facility] Address: [address] [place] [address] Performed By: #### 1 9123-9, [place], 2776-05, 01833-8 ####[facility] LABORATORYCLIA [id number] [address] STATES OF [facility] Urea nitrogen [Mass/Vol] 38 mg/dL High 9-24 [facility] Comment on above: Order Comment: Shira feldman Type: BLOOD SPECIMENOrdering Facility: [facility] Address: [address] [place] [address] Performed By: #### 1 9123-9, [facility], 2776-1, 39427-9 ####[facility] LABORATORYCLIA [id number] [place] [address] [place] CBC W Auto Differential pane l (Bld)on 07-24-2021 Basophils (Bld) [#/Vol] 0.06 10*3/uL Normal <0.11 [facility] Comment on above: Order Comment: Speci men Type: BLOOD SPECIMENOrdering Facility: [facility] Address: [address] [address] Performed By: #### 5 7021-8 ####[facility]ORATORYCLIA [id number] [place] [address] [place] Basophils/100 WBC (Bld) 0.6 % Normal [facility] Comment on above: Order Comment: Speci men Type: BLOOD SPECIMENOrdering Facility: [facility] Address: [address] [place] [address] Performed By: #### 5 7021-8 ####[facility] LABORATORYCLIA [id number] [address] STATES OF [facility] Differential cell count method Nom (Bld) Auto Normal [facility] Comment on above: Order Comment: Speci men Type: BLOOD SPECIMENOrdering Facility: [facility] Address: [address] [place] [address] Performed By: #### 5 7021-8 ####[facility] LABORATORYCLIA [id number] [place] [address] [place] Eosinophils (Bld) [#/Vol] 0.03 10*3/uL Normal <0.46 [facility] Comment on above: Order Comment: Speci men Type: BLOOD SPECIMENOrdering Facility: [facility] Address: [address] [place] [address] Performed By: #### 5 7021-8 ####[facility] LABORATORYCLIA [id number] [address] Eosinophils/100 WBC (Bld) 0.3 % Normal [facility] Comment on above: Order Comment: Speci men Type: BLOOD SPECIMENOrdering Facility: [facility] Address: [address] [place] [address] Performed By: #### 5 7021-8 ####[facility] LABORATORYCLIA [id number] [address] Erythrocyte distribution width (RBC) [Ratio] 17.0 % High 11.5-15.0 [facility] Comment on above: Order Comment: Speci men Type: BLOOD SPECIMENOrdering Facility: [facility] Address: [address] [place] [address] Performed By: #### 5 7021-8 ####[facility] LABORATORYCLIA [id number] [address] Hematocrit (Bld) [Volume fraction] 30.5 % Low 39.0-51.0 [facility] Comment on above: Order Comment: Speci men Type: BLOOD SPECIMENOrdering Facility: [facility] Address: [address] [place] [address] Performed By: #### 5 7021-8 ####[facility] LABORATORYCLIA [id number] [address] Hemoglobin (Bld) [Mass/Vol] 9.0 g/dL Low 13.0-17.0 [facility] Comment on above: Order Comment: Speci men Type: BLOOD SPECIMENOrdering Facility: [facility] Address: [address] [place] [address] Performed By: #### 5 7021-8 ####[facility] LABORATORYCLIA [id number] [address] IMMATURE GRAN % 0.5 % Normal [facility] Comment on above: Order Comment: Speci men Type: BLOOD SPECIMENOrdering Facility: [facility] Address: [address] [place] [address] Performed By: #### 5 7021-8 ####[facility] LABORATORYCLIA [id number] [address] IMMATURE GRAN ABS 0.05 k/uL Normal <0.10 [facility] Comment on above: Order Comment: Speci men Type: BLOOD SPECIMENOrdering Facility: [facility] Address: [address] [address] Performed By: #### 5 7021-8 ####[facility] LABORATORYCLIA [id number] [address] [place] Lymphocytes (Bld) [#/Vol] 1.68 10*3/uL Normal 1.00-4.00 [facility] Comment on above: Order Comment: Speci men Type: BLOOD SPECIMENOrdering Facility: [facility] Address: [address] [place] [address] Performed By: #### 5 7021-8 ####[facility] LABORATORYCLIA [id number] [address] Lymphocytes/100 WBC (Bld) 16.2 % Normal [facility] Comment on above: Order Comment: Speci men Type: BLOOD SPECIMENOrdering Facility: [facility] Address: [address] [place] [address] Performed By: #### 5 7021-8 ####[facility] LABORATORYCLIA [id number] [address] STATES OF [facility] MCH (RBC) [Entitic mass] 27.4 pg Normal 26.0-34.0 [facility] Comment on above: Order Comment: Speci men Type: BLOOD SPECIMENOrdering Facility: [facility] Address: [address] [place] [address] Performed By: #### 5 7021-8 ####[facility] LABORATORYCLIA [id number] [address] [place] MCHC (RBC) [Mass/Vol] 29.5 g/dL Low 30.5-36.0 [facility] Comment on above: Order Comment: Speci men Type: BLOOD SPECIMENOrdering Facility: [facility] Address: [address] [place] [address] Performed By: #### 5 7021-8 ####[facility] LABORATORYCLIA [id number] [address] [place] MCV (RBC) [Entitic vol] 93.0 fL Normal 80.0-100.0 [facility] Comment on above: Order Comment: Speci men Type: BLOOD SPECIMENOrdering Facility: [facility] Address: [address] [place] [address] Performed By: #### 5 7021-8 ####[facility] LABORATORYCLIA [id number] [place] [address] [place] Monocytes (Bld) [#/Vol] 0.63 10*3/uL Normal <0.87 [facility] Comment on above: Order Comment: Speci men Type: BLOOD SPECIMENOrdering Facility: [facility] Address: [address] [place] [address] Performed By: #### 5 7021-8 ####[facility] LABORATORYCLIA [id number] [address] [place] Monocytes/100 WBC (Bld) 6.1 % Normal [facility] Comment on above: Order Comment: Speci men Type: BLOOD SPECIMENOrdering Facility: [facility] Address: [address] [place] [address] Performed By: #### 5 7021-8 ####[facility] LABORATORYCLIA [id number] [place] [address] [place] Neutrophils (Bld) [#/Vol] 7.91 10*3/uL High 1.45-7.50 [facility] Comment on above: Order Comment: Speci men Type: BLOOD SPECIMENOrdering Facility: [facility] Address: [address] [place] [address] Performed By: #### 5 7021-8 ####[facility]ORATORYCLIA [id number] [place] [address] [place] Neutrophils/100 WBC (Bld) 76.3 % Normal [facility] Comment on above: Order Comment: Speci men Type: BLOOD SPECIMENOrdering Facility: [facility] Address: [address] [place] [address] Performed By: #### 5 7021-8 ####[facility]ORATORYCLIA [id number] [address] [place] Nucleated RBC (Bld) [#/Vol] 10*3/uL Normal <0.01 [facility] Comment on above: Order Comment: Speci men Type: BLOOD SPECIMENOrdering Facility: [facility] Address: [address] [place] [address] Performed By: #### 5 7021-8 ####[facility] LABORATORYCLIA [id number] [address] [place] Nucleated RBC/100 WBC (Bld) [Ratio] 0.0 /100 WBC Normal [facility] Comment on above: Order Comment: Speci men Type: BLOOD SPECIMENOrdering Facility: [facility] Address: [address] [place] [address] Performed By: #### 5 7021-8 ####[facility] LABORATORYCLIA [id number] [address] [place] Platelet mean volume (Bld) [Entitic vol] 11.1 fL Normal 9.0-12.7 [facility] Comment on above: Order Comment: Speci men Type: BLOOD SPECIMENOrdering Facility: [facility] Address: [address] [place] [address] Performed By: #### 5 7021-8 ####[facility] LABORATORYCLIA [id number] [address] [place] Platelets (Bld) [#/Vol] 285 10*3/uL Normal 150-400 [facility] Comment on above: Order Comment: Speci men Type: BLOOD SPECIMENOrdering Facility: [facility] Address: [address] [place] [address] Performed By: #### 5 7021-8 ####[facility] LABORATORYCLIA [id number] [address] [place] RBC (Bld) [#/Vol] 3.28 10*6/uL Low 4.20-6.00 [facility] Comment on above: Order Comment: Speci men Type: BLOOD SPECIMENOrdering Facility: [facility] Address: [address] [place] [address] Performed By: #### 5 7021-8 ####[facility] LABORATORYCLIA [id number] [place] [address] [place] WBC (Bld) [#/Vol] 10.36 10*3/uL Normal 3.70-11.00 [facility] Comment on above: Order Comment: Speci men Type: BLOOD SPECIMENOrdering Facility: [facility] Address: [address] [place] [address] Performed By: #### 5 7021-8 ####[facility] LABORATORYCLIA [id number] [address] [place] Legionella Ag Ur Qlon 2021 Legionella sp Ag Ql (U) Negative Normal Negative [facility] Comment on above: Order Comment: Speci men Type: URINE SPECIMENOrdering Facility: [facility] Address: [address] [place] [address] Performed By: #### 3 2781-7 ####[facility] LABORATORYCLIA [id number] [address] [place] Magnesium SerPl-mCncon 07-24 Magnesium [Mass/Vol] 2.3 mg/dL Normal 1.7-2.3 [facility] Comment on above: Order Comment: Speci men Type: BLOOD SPECIMENOrdering Facility: [facility] Address: [address] [place] [address] Performed By: #### 1 9123-9, PROCAL, 2777-1, 11384-9 ####[facility] LABORATORYCLIA [id number] [place] [address] [place] NURSING PROGon 07-24-2021 NURSING PROG Normal [facility] PROCALCITONIN (LAB)on 2021 Procalcitonin [Mass/Vol] 0.15 ng/mL High <0.09 [facility] Comment on above: Order Comment: Speci men Type: BLOOD SPECIMENOrdering Facility: [facility] Address: [address] [place] [address] Result Comment: For a guided interpretation of test results, please visit the Change in Procalcitonin Calculator, [email or web address]. Performed By: #### 1 9123-9, PROCAL, 2777-1, 83290-2 ####[facility] LABORATORYCLIA [id number] [address] Phosphate SerPl-mCncon 07-24 Phosphate [Mass/Vol] 3.9 mg/dL Normal 2.7-4.8 [facility] Comment on above: Order Comment: Speci men Type: BLOOD SPECIMENOrdering Facility: [facility] Address: [address] [place] [address] Performed By: #### 1 9123-9, PROCAL, 2777-1, 16371-4 ####[facility] LABORATORYCLIA [id number] [address] [place] STREPTOCOCCUS PNEUMONIAE AGo n 07-24-2021 STREPTOCOCCUS PNEUMONIAE AG Normal [facility] Comment on above: Performed By: #### S PNAG ####[facility] LABORATORYCLIA [id number] [address] [place] aPTT PPPon 07-24-2021 aPTT Coag (PPP) [Time] 60.8 s High 23.0-32.4 [facility] Comment on above: Order Comment: Speci men Type: BLOOD SPECIMENOrdering Facility: [facility] Address: [address] [place] [address] Performed By: #### 1 4979-9 ####[facility] LABORATORYCLIA [id number] [address] aPTT Coag (PPP) [Time] 38.2 s High 23.0-32.4 [facility] Comment on above: Order Comment: Speci men Type: BLOOD SPECIMENOrdering Facility: [facility] Address: [address] [place] [address] Performed By: #### 1 4979-9 ####[facility] LABORATORYCLIA [id number] [address] [place] aPTT Coag (PPP) [Time] 35.9 s High 23.0-32.4 [facility] Comment on above: Order Comment: Speci men Type: BLOOD SPECIMENOrdering Facility: [facility] Address: [address] [place] [address] Performed By: #### 1 4979-9 ####[facility] LABORATORYCLIA [id number] [address] aPTT Coag (PPP) [Time] 28.8 s Normal 23.0-32.4 [facility] Comment on above: Order Comment: Speci men Type: BLOOD SPECIMENOrdering Facility: [facility] Address: [address] [place] [address] Performed By: #### 1 4979-9 ####[facility] LABORATORYCLIA [id number] [address] [place] ALLIED HEALTHon 07-23-2021 ALLIED HEALTH Normal [facility] ALLIED HEALTH Normal [facility] ALLIED HEALTH Normal [facility] ARTERIAL BLOOD GASESon 07-23 Base excess Calc (Bld) [Moles/Vol] 4 mmol/L High 0-2 [facility] Comment on above: Order Comment: Speci men Type: ARTERIAL BLOOD SPECIMENOrdering Facility: [facility] Address: [address] [place] [address] Performed By: #### A LLBG ####[facility] LABORATORYCLIA [id number] [address] Body temperature 100.58 [degF] Normal [facility] Comment on above: Order Comment: Speci men Type: ARTERIAL BLOOD SPECIMENOrdering Facility: [facility] Address: [address] [place] [address] Performed By: #### A LLBG ####[facility] LABORATORYCLIA [id number] [place] [address] [place] CALCIUM IONIZED, PH CORRECTED 1.26 mmol/L Normal 1.08-1.30 [facility] Comment on above: Order Comment: Speci men Type: ARTERIAL BLOOD SPECIMENOrdering Facility: [facility] Address: [address] [place] [address] Performed By: #### A LLBG ####[facility] LABORATORYCLIA [id number] [place] [address] [place] Calcium.ionized (BldV) [Mass/Vol] 1.25 mmol/L Normal 1.08-1.30 [facility] Comment on above: Order Comment: Speci men Type: ARTERIAL BLOOD SPECIMENOrdering Facility: [facility] Address: [address] [place] [address] Performed By: #### A LLBG ####[facility] LABORATORYCLIA [id number] [address] [place] Carboxyhemoglobin (BldA) [Mass fraction] 1.2 % Normal 0.0-2.0 [facility] Comment on above: Order Comment: Speci men Type: ARTERIAL BLOOD SPECIMENOrdering Facility: [facility] Address: [address] [place] [address] Result Comment: Carb oxyhemoglobin Reference Range for Smokers: 2.0-8.0% Performed By: #### A LLBG ####[facility] LABORATORYCLIA [id number] [place] [address] [place] CO2 (Bld) [Partial pressure] 46 mm Hg Normal 36-46 [facility] Comment on above: Order Comment: Speci men Type: ARTERIAL BLOOD SPECIMENOrdering Facility: [facility] Address: [address] [address] Performed By: #### A LLBG ####[facility] LABORATORYCLIA [id number] [place] [address] [place] CO2 [Moles/Vol] 27 mmol/L Normal 22-28 [facility] Comment on above: Order Comment: Speci men Type: ARTERIAL BLOOD SPECIMENOrdering Facility: [facility] Address: [address] [place] [address] Performed By: #### A LLBG ####[facility] LABORATORYCLIA [id number] [address] CO2 adjusted to patient's actual temperature (Bld) [Partial pressure] 48 mmHg High 36-46 [facility] Comment on above: Order Comment: Speci men Type: ARTERIAL BLOOD SPECIMENOrdering Facility: [facility] Address: [address] [place] [address] Performed By: #### A LLBG ####[facility] LABORATORYCLIA [id number] [address] [place] Glucose [Mass/Vol] 134 mg/dL High 60-105 [facility] Comment on above: Order Comment: Speci men Type: ARTERIAL BLOOD SPECIMENOrdering Facility: [facility] Address: [address] [place] [address] Performed By: #### A LLBG ####[facility] LABORATORYCLIA [id number] [address] HCO3 (Bld) [Moles/Vol] 29 mmol/L High 22-26 [facility] Comment on above: Order Comment: Speci men Type: ARTERIAL BLOOD SPECIMENOrdering Facility: [facility] Address: [address] [place] [address] Performed By: #### A LLBG ####[facility] LABORATORYCLIA [id number] [address] [place] Hematocrit (Bld) [Volume fraction] 31.4 % Low 39.0-51.0 [facility] Comment on above: Order Comment: Speci men Type: ARTERIAL BLOOD SPECIMENOrdering Facility: [facility] Address: [address] [place] [address] Performed By: #### A LLBG ####[facility]ATORYCLIA [id number] [address] [place] Hemoglobin (Bld) [Mass/Vol] 10.2 g/dL Low 13.0-17.0 [facility] Comment on above: Order Comment: Speci men Type: ARTERIAL BLOOD SPECIMENOrdering Facility: [facility] Address: [address] [address] Performed By: #### A LLBG ####[facility]ORATORYCLIA [id number] [address] Methemoglobin (Bld) [Mass fraction] % Normal 0.0-1.5 [facility] Comment on above: Order Comment: Speci men Type: ARTERIAL BLOOD SPECIMENOrdering Facility: [facility] Address: [address] [address] Performed By: #### A LLBG ####[facility]ORATORYCLIA [id number] [address] O2 THERAPY Ventilator Normal [facility] Comment on above: Order Comment: Speci men Type: ARTERIAL BLOOD SPECIMENOrdering Facility: [facility] Address: [address] [place] [address] Performed By: #### A LLBG ####[facility]ORATORYCLIA [id number] [address] Oxygen (Bld) [Partial pressure] 113 mm Hg High 85-95 [facility] Comment on above: Order Comment: Speci men Type: ARTERIAL BLOOD SPECIMENOrdering Facility: [facility] Address: [address] [place] [address] Performed By: #### A LLBG ####[facility]ORATORYCLIA [id number] [address] Oxygen adjusted to patient's actual temperature (Bld) [Partial pressure] 119 mmHg High 85-95 [facility] Comment on above: Order Comment: Speci men Type: ARTERIAL BLOOD SPECIMENOrdering Facility: [facility] Address: [address] [address] Performed By: #### A LLBG ####[facility]ORATORYCLIA [id number] [address] [place] OXYGEN SATURATION, ARTERIAL 98 % Normal 95-98 [facility] Comment on above: Order Comment: Speci men Type: ARTERIAL BLOOD SPECIMENOrdering Facility: [facility] Address: [address] [place] [address] Performed By: #### A LLBG ####[facility] LABORATORYCLIA [id number] [address] Oxyhemoglobin (BldA) [Mass fraction] 96 % Normal 95-98 [facility] Comment on above: Order Comment: Speci men Type: ARTERIAL BLOOD SPECIMENOrdering Facility: [facility] Address: [address] [place] [address] Performed By: #### A LLBG ####[facility] LABORATORYCLIA [id number] [address] [place] pH (Bld) 7.41 [pH] Normal 7.35-7.45 [facility] Comment on above: Order Comment: Speci men Type: ARTERIAL BLOOD SPECIMENOrdering Facility: [facility] Address: [address] [place] [address] Performed By: #### A LLBG ####[facility] LABORATORYCLIA [id number] [address] pH adjusted to patient's actual temperature (Bld) 7.40 Normal 7.35-7.45 [facility] Comment on above: Order Comment: Speci men Type: ARTERIAL BLOOD SPECIMENOrdering Facility: [facility] Address: [address] [place] [address] Performed By: #### A LLBG ####[facility] LABORATORYCLIA [id number] [address] [place] Potassium [Moles/Vol] 4.3 mmol/L Normal 3.5-5.0 [facility] Comment on above: Order Comment: Speci men Type: ARTERIAL BLOOD SPECIMENOrdering Facility: [facility] Address: [address] [place] [address] Performed By: #### A LLBG ####[facility] LABORATORYCLIA [id number] [address] [place] Sodium [Moles/Vol] 144 mmol/L Normal 136-144 [facility] Comment on above: Order Comment: Speci men Type: ARTERIAL BLOOD SPECIMENOrdering Facility: [facility] Address: [address] [place] [address] Performed By: #### A LLBG ####[facility] LABORATORYCLIA [id number] [address] OF [facility] Bacteria CSF Culton 07-24-19 22 Bacteria identified Cx Nom (CSF) Abnormal [facility] Comment on above: Performed By: #### 6 06-4 ####[facility] LABORATORYCLIA [id number] [address] [place] Basic metabolic 2000 panelon 07-23-2021 Anion gap [Moles/Vol] 12 mmol/L Normal 9-18 [facility] Comment on above: Order Comment: Speci men Type: BLOOD SPECIMENOrdering Facility: [facility] Address: [address] [place] [address] Performed By: #### 2 4321-2 ####[facility] LABORATORYCLIA [id number] [place] [address] [place] Calcium [Mass/Vol] 9.7 mg/dL Normal 8.5-10.2 [facility] Comment on above: Order Comment: Speci men Type: BLOOD SPECIMENOrdering Facility: [facility] Address: [address] [place] [address] Performed By: #### 2 4321-2 ####[facility] LABORATORYCLIA [id number] [place] [address] [place] Chloride [Moles/Vol] 105 mmol/L Normal 97-105 [facility] Comment on above: Order Comment: Speci men Type: BLOOD SPECIMENOrdering Facility: [facility] Address: [address] [place] [address] Performed By: #### 2 4321-2 ####[facility] LABORATORYCLIA [id number] [place] [address] [place] CO2 [Moles/Vol] 28 mmol/L Normal 22-30 [facility] Comment on above: Order Comment: Speci men Type: BLOOD SPECIMENOrdering Facility: [facility] Address: [address] [address] Performed By: #### 2 4321-2 ####[facility] LABORATORYCLIA [id number] [address] STATES OF [facility] Creatinine [Mass/Vol] 0.78 mg/dL Normal 0.73-1.22 [facility] Comment on above: Order Comment: Speci men Type: BLOOD SPECIMENOrdering Facility: [facility] Address: [address] [place] [address] Performed By: #### 2 4321-2 ####[facility]PITALCLIA [id number] [address] ESTIMATED GLOMERULAR FILTRATION RATE 97 mL/min/1.73m??? Normal >=60 [facility] Comment on above: Order Comment: Speci men Type: BLOOD SPECIMENOrdering Facility: [facility] Address: [address] [place] [address] Result Comment: Luzmaria mated Glomerular Filtration Rate [...] actual GFR. Performed By: #### 2 4321-2 ####[facility] LABORATORYCLIA [id number] [address] [place] Glucose [Mass/Vol] 127 mg/dL High 74-99 [facility] Comment on above: Order Comment: Speci francia Type: BLOOD SPECIMENOrdering Facility: [facility] Address: [address] [address] Result Comment: The [place] [employer] (ADA) provides guidance for cutoff [...] Standards of Medical Care in Diabetes 2016, [place] [employer]. Diabetes Care. 2016.39(Suppl 1). Performed By: #### 2 4321-2 ####[facility] LABORATORYCLIA [id number] [place] [address] [place] Potassium [Moles/Vol] 4.3 mmol/L Normal 3.7-5.1 [facility] Comment on above: Order Comment: Shira feldman Type: BLOOD SPECIMENOrdering Facility: [facility] Address: [address] [place] [address] Performed By: #### 2 4321-2 ####[facility] HOSPITALIA [id number] [place] [address] [place] Sodium [Moles/Vol] 145 mmol/L High 136-144 [facility] Comment on above: Order Comment: Shira feldman Type: BLOOD SPECIMENOrdering Facility: [facility] Address: [address] [place] [address] Performed By: #### 2 4321-2 ####[facility] HOSPITALIA [id number] [place] [address] [place] Urea nitrogen [Mass/Vol] 37 mg/dL High 9-24 [facility] Comment on above: Order Comment: Shira feldman Type: BLOOD SPECIMENOrdering Facility: [facility] Address: [address] [place] [address] Performed By: #### 2 4321-2 ####[facility] LABORATORYCLIA [id number] [place] [address] [place] C diff Tox gens Stl Ql MEGAN+p robeon 07-23-2021 C. difficile toxin genes MEGAN+probe Ql (Stl) Negative Normal Negative for C. difficile toxin by PCR [facility] Comment on above: Order Comment: Speci men Type: STOOL SPECIMENOrdering Facility: [facility] Address: [address] [place] [address] Performed By: #### 5 4067-4 ####[facility] LABORATORYCLIA [id number] [address] STATES OF [facility] CBC W Auto Differential pane l (Bld)on 07-23-2021 Basophils (Bld) [#/Vol] 0.07 10*3/uL Normal <0.11 [facility] Comment on above: Order Comment: Speci men Type: BLOOD SPECIMENOrdering Facility: [facility] Address: [address] [place] [address] Performed By: #### 5 7021-8 ####[facility] LABORATORYCLIA [id number] [address] [place] Basophils/100 WBC (Bld) 0.5 % Normal [facility] Comment on above: Order Comment: Speci men Type: BLOOD SPECIMENOrdering Facility: [facility] Address: [address] [place] [address] Performed By: #### 5 7021-8 ####[facility] LABORATORYCLIA [id number] [address] Differential cell count method Nom (Bld) Auto Normal [facility] Comment on above: Order Comment: Speci men Type: BLOOD SPECIMENOrdering Facility: [facility] Address: [address] [place] [address] Performed By: #### 5 7021-8 ####[facility] LABORATORYCLIA [id number] [place] [address] [place] Eosinophils (Bld) [#/Vol] 10*3/uL Normal <0.46 [facility] Comment on above: Order Comment: Speci men Type: BLOOD SPECIMENOrdering Facility: [facility] Address: [address] [place] [address] Performed By: #### 5 7021-8 ####[facility]ORATORYCLIA [id number] [address] [place] Eosinophils/100 WBC (Bld) 0.2 % Normal [facility] Comment on above: Order Comment: Speci men Type: BLOOD SPECIMENOrdering Facility: [facility] Address: [address] [place] [address] Performed By: #### 5 7021-8 ####[facility] LABORATORYCLIA [id number] [address] Erythrocyte distribution width (RBC) [Ratio] 16.7 % High 11.5-15.0 [facility] Comment on above: Order Comment: Speci men Type: BLOOD SPECIMENOrdering Facility: [facility] Address: [address] [place] [address] Performed By: #### 5 7021-8 ####[facility] LABORATORYCLIA [id number] [address] Hematocrit (Bld) [Volume fraction] 32.8 % Low 39.0-51.0 [facility] Comment on above: Order Comment: Speci men Type: BLOOD SPECIMENOrdering Facility: [facility] Address: [address] [place] [address] Performed By: #### 5 7021-8 ####[facility] LABORATORYCLIA [id number] [address] [place] Hemoglobin (Bld) [Mass/Vol] 9.7 g/dL Low 13.0-17.0 [facility] Comment on above: Order Comment: Speci men Type: BLOOD SPECIMENOrdering Facility: [facility] Address: [address] [place] [address] Performed By: #### 5 7021-8 ####[facility]ATORYCLIA [id number] [address] IMMATURE GRAN % 0.7 % Normal [facility] Comment on above: Order Comment: Speci men Type: BLOOD SPECIMENOrdering Facility: [facility] Address: [address] [address] Performed By: #### 5 7021-8 ####[facility] LABORATORYCLIA [id number] [address] IMMATURE GRAN ABS 0.09 k/uL Normal <0.10 [facility] Comment on above: Order Comment: Speci men Type: BLOOD SPECIMENOrdering Facility: [facility] Address: [address] [place] [address] Performed By: #### 5 7021-8 ####[facility] LABORATORYCLIA [id number] [address] Lymphocytes (Bld) [#/Vol] 1.94 10*3/uL Normal 1.00-4.00 [facility] Comment on above: Order Comment: Speci men Type: BLOOD SPECIMENOrdering Facility: [facility] Address: [address] [place] [address] Performed By: #### 5 7021-8 ####[facility] LABORATORYCLIA [id number] [address] Lymphocytes/100 WBC (Bld) 14.6 % Normal [facility] Comment on above: Order Comment: Speci men Type: BLOOD SPECIMENOrdering Facility: [facility] Address: [address] [place] [address] Performed By: #### 5 7021-8 ####[facility] LABORATORYCLIA [id number] [address] MCH (RBC) [Entitic mass] 27.2 pg Normal 26.0-34.0 [facility] Comment on above: Order Comment: Speci men Type: BLOOD SPECIMENOrdering Facility: [facility] Address: [address] [place] [address] Performed By: #### 5 7021-8 ####[facility] LABORATORYCLIA [id number] [address] MCHC (RBC) [Mass/Vol] 29.6 g/dL Low 30.5-36.0 [facility] Comment on above: Order Comment: Speci men Type: BLOOD SPECIMENOrdering Facility: [facility] Address: [address] [place] [address] Performed By: #### 5 7021-8 ####[facility] LABORATORYCLIA [id number] [address] [place] MCV (RBC) [Entitic vol] 92.1 fL Normal 80.0-100.0 [facility] Comment on above: Order Comment: Speci men Type: BLOOD SPECIMENOrdering Facility: [facility] Address: [address] [place] [address] Performed By: #### 5 7021-8 ####[facility] LABORATORYCLIA [id number] [address] [place] Monocytes (Bld) [#/Vol] 0.74 10*3/uL Normal <0.87 [facility] Comment on above: Order Comment: Speci men Type: BLOOD SPECIMENOrdering Facility: [facility] [facility] Address: [address] [place] [address] Performed By: #### 5 7021-8 ####[facility] LABORATORYCLIA [id number] [address] [place] Monocytes/100 WBC (Bld) 5.6 % Normal [facility] Comment on above: Order Comment: Speci men Type: BLOOD SPECIMENOrdering Facility: [facility] Address: [address] [place] [address] Performed By: #### 5 7021-8 ####[facility] LABORATORYCLIA [id number] [address] [place] Neutrophils (Bld) [#/Vol] 10.43 10*3/uL High 1.45-7.50 [facility] Comment on above: Order Comment: Speci men Type: BLOOD SPECIMENOrdering Facility: [facility] Address: [address] [place] [address] Performed By: #### 5 7021-8 ####[facility] LABORATORYCLIA [id number] [address] [place] Neutrophils/100 WBC (Bld) 78.4 % Normal [facility] Comment on above: Order Comment: Speci men Type: BLOOD SPECIMENOrdering Facility: [facility] Address: [address] [address] Performed By: #### 5 7021-8 ####[facility] LABORATORYCLIA [id number] [address] [place] Nucleated RBC (Bld) [#/Vol] 10*3/uL Normal <0.01 [facility] Comment on above: Order Comment: Speci men Type: BLOOD SPECIMENOrdering Facility: [facility] Address: [address] [place] [address] Performed By: #### 5 7021-8 ####[facility] LABORATORYCLIA [id number] [address] Nucleated RBC/100 WBC (Bld) [Ratio] 0.0 /100 WBC Normal [facility] Comment on above: Order Comment: Speci men Type: BLOOD SPECIMENOrdering Facility: [facility] Address: [address] [place] [address] Performed By: #### 5 7021-8 ####[facility] LABORATORYCLIA [id number] [address] [place] Platelet mean volume (Bld) [Entitic vol] 11.0 fL Normal 9.0-12.7 [facility] Comment on above: Order Comment: Speci men Type: BLOOD SPECIMENOrdering Facility: [facility] Address: [address] [address] Performed By: #### 5 7021-8 ####[facility] LABORATORYCLIA [id number] [address] [place] Platelets (Bld) [#/Vol] 381 10*3/uL Normal 150-400 [facility] Comment on above: Order Comment: Speci men Type: BLOOD SPECIMENOrdering Facility: [facility] Address: [address] [place], [place] [address] Performed By: #### 5 7021-8 ####[facility] LABORATORYCLIA [id number] [address] [place] RBC (Bld) [#/Vol] 3.56 10*6/uL Low 4.20-6.00 [facility] Comment on above: Order Comment: Speci men Type: BLOOD SPECIMENOrdering Facility: [facility] Address: [address] [place] [address] Performed By: #### 5 7021-8 ####[facility] LABORATORYCLIA [id number] [address] STATES OF [facility] WBC (Bld) [#/Vol] 13.29 10*3/uL High 3.70-11.00 [facility] Comment on above: Order Comment: Speci men Type: BLOOD SPECIMENOrdering Facility: [facility] Address: [address] [place] [address] Performed By: #### 5 7021-8 ####[facility] LABORATORYCLIA [id number] [address] OF [facility] CONSULT PROGon 07-23-2021 CONSULT PROG Normal [facility] CONSULT PROG Normal [facility] CSF MANUAL DIFFon 07-23-2021 DIF TTL, CSF 100 cells counted Normal [facility] Comment on above: Order Comment: Speci men Type: CEREBROSPINAL FLUIDOrdering Facility: [facility] Address: [address] [place] [address] Performed By: #### L [id number], RYH6366, 13923-1 ####[facility] LABORATORYCLIA [id number] [address] [place] LYMPH%, CSF 2 % Low 50-90 [facility] Comment on above: Order Comment: Speci men Type: CEREBROSPINAL FLUIDOrdering Facility: [facility] Address: [address] [place] [address] Performed By: #### L [id number], AIN3752, 02617-4 ####[facility] LABORATORYCLIA [id number] [address] [place] MONO%, CSF 9 % Low 10-50 [facility] Comment on above: Order Comment: Speci men Type: CEREBROSPINAL FLUIDOrdering Facility: [facility] Address: [address] [place] [address] Performed By: #### L CH9789, [id number], 42659-7 ####[facility] LABORATORYCLIA [id number] [address] [place] NEUT%, CSF 89 % High 0-3 [facility] Comment on above: Order Comment: Speci men Type: CEREBROSPINAL FLUIDOrdering Facility: [facility] Address: [address] [place] [address] Performed By: #### L [id number], RNT0507, 66540-7 ####[facility] LABORATORYCLIA [id number] [address] CSF PATHOLOGIST INTERP (LAB REFLEX ORDER-NO BILL)on 07-23-2021 CSF STAFF REVIEW Negative for maligna nt cells. Numerous bacterial organisms present, cocci in pairs and chains. Recommend correlation with CSF culture results. Normal [facility] Comment on above: Order Comment: Speci men Type: CEREBROSPINAL FLUIDOrdering Facility: [facility] Address: [address] [place] [address] Performed By: #### L GL2292, UAK7807, 22740-0 ####[facility] LABORATORYCLIA [id number] [address] Pathologist name Reviewed by Amador Stevens MD [facility] Comment on above: Order Comment: Speci men Type: CEREBROSPINAL FLUIDOrdering Facility: [facility] Address: [address] [place] [address] Performed By: #### L [id number], CSB8512, 58684-2 ####[facility] LABORATORYCLIA [id number] [address] [place] CT BRAIN WO IVCONon 03-19-[address] BRAIN WO IVCON Normal [facility] Cell count panel (CSF)on Clarity (CSF) Clear Normal Clear [facility] Comment on above: Order Comment: Speci men Type: CEREBROSPINAL FLUIDOrdering Facility: [facility] Address: [address] [place] [address] Performed By: #### L OL5327, ALX2250, 42799-7 ####[facility]ORATORYCLIA [id number] [address] Clarity (Unsp spec) Not Indicated Normal Clear [facility] Comment on above: Order Comment: Speci men Type: CEREBROSPINAL FLUIDOrdering Facility: [facility] Address: [address] [place] [address] Performed By: #### L EW0553, MTR1909, 64031-2 ####[facility] LABORATORYCLIA [id number] [address] Color (CSF) Colorless Normal Colorless [facility] Comment on above: Order Comment: Speci men Type: CEREBROSPINAL FLUIDOrdering Facility: [facility] Address: [address] [place] [address] Performed By: #### L PS8267, BAV5533, 42445-3 ####[facility]ORATORYCLIA [id number] [address] Color (Spun CSF) Not Indicated Normal Colorless [facility] Comment on above: Order Comment: Speci men Type: CEREBROSPINAL FLUIDOrdering Facility: [facility] Address: [address] [place] [address] Performed By: #### L ZK3269, KTH7068, 41282-0 ####[facility]ORATORYCLIA [id number] [address] CSF TUBE [employer] Normal [facility] Comment on above: Order Comment: Speci men Type: CEREBROSPINAL FLUIDOrdering Facility: [facility] Address: [address] [place] [address] Performed By: #### L AV4547, DWD2908, 14180-0 ####[facility] LABORATORYCLIA [id number] [address] RBC Manual cnt (CSF) [#/Vol] 7 cells/uL High 0-5 [facility] Comment on above: Order Comment: Speci men Type: CEREBROSPINAL FLUIDOrdering Facility: [facility] Address: [address] [place] [address] Performed By: #### L IK4738, GBT8027, 62303-0 ####[facility] LABORATORYCLIA [id number] [address] WBC Manual cnt (CSF) [#/Vol] 193 cells/uL High 0-5 [facility] Comment on above: Order Comment: Speci men Type: CEREBROSPINAL FLUIDOrdering Facility: [facility] Address: [address] [place] [address] Performed By: #### L EE4507, EIZ1439, 08577-2 ####[facility]OSPITALCLIA [id number] [address] Glucose CSF-mCncon 2 Glucose (CSF) [Mass/Vol] 81 mg/dL High 40-70 [facility] Comment on above: Order Comment: Speci men Type: CEREBROSPINAL FLUIDOrdering Facility: [facility] Address: [address] [place] [address] Result Comment: Lumb ar CSF glucose values of healthy patients are approximately 60% of the plasma values and must always be compared with a concurrently measured plasma value for adequate clinical interpretation.References: 1. Glucose HK (GLUC3) [package insert V 12.0 Spanish]. [employer], [place], [place]. September 2015. 2. Teresa H., He, H. (2015). Chapter 7: Glucose and Lactate. Marianela Rothman.(eds.), Cerebrospinal Fluid in Clinical Neurology. [place]: [employer]. Performed By: #### 2 342-4, 2880-3 ####[facility] LABORATORYCLIA [id number] [address] NURSING PROGon 07-23-2021 NURSING PROG Normal [facility] NURSING PROG Normal [facility] Prot CSF-mCncon 07-23-2021 Protein (CSF) [Mass/Vol] 68 mg/dL High 15-45 [facility] Comment on above: Order Comment: Speci men Type: CEREBROSPINAL FLUIDOrdering Facility: [facility] Address: [address] [place] [address] Performed By: #### 2 342-4, 2880-3 ####[facility] LABORATORYCLIA [id number] [address] Urinalysis complete panel (U )on 07-23-2021 Bilirubin Ql (U) Negative Normal Negative [facility] Comment on above: Order Comment: Speci men Type: URINE SPECIMENOrdering Facility: [facility] Address: [address] [place] [address] Performed By: #### 2 4356-8 ####[facility] LABORATORYCLIA [id number] [address] [place] Clarity (Unsp spec) Clear Normal Clear [facility] Comment on above: Order Comment: Speci men Type: URINE SPECIMENOrdering Facility: [facility] Address: [address] [place] [address] Performed By: #### 2 4356-8 ####[facility] LABORATORYCLIA [id number] [address] Color (U) Light Yellow Normal yellow [facility] Comment on above: Order Comment: Speci men Type: URINE SPECIMENOrdering Facility: [facility] Address: [address] [place] [address] Performed By: #### 2 4356-8 ####[facility] LABORATORYCLIA [id number] [address] Glucose Test strip (U) [Mass/Vol] Negative Normal Negative [facility] Comment on above: Order Comment: Speci men Type: URINE SPECIMENOrdering Facility: [facility] Address: [address] [place], [place] [address] Performed By: #### 2 4356-8 ####[facility] LABORATORYCLIA [id number] [address] Hemoglobin Ql (U) Negative Normal Negative [facility] Comment on above: Order Comment: Speci men Type: URINE SPECIMENOrdering Facility: [facility] Address: [address] [address] Performed By: #### 2 4356-8 ####[facility] LABORATORYCLIA [id number] [address] STATES OF [facility] Ketones Ql (U) Negative Normal Negative [facility] Comment on above: Order Comment: Speci men Type: URINE SPECIMENOrdering Facility: [facility] Address: [facility] [address] Performed By: #### 2 4356-8 ####[facility] LABORATORYCLIA [id number] [address] Leukocyte esterase Test strip Ql (U) Negative Normal Negative [facility] Comment on above: Order Comment: Speci men Type: URINE SPECIMENOrdering Facility: [facility] Address: [address] [address] Performed By: #### 2 4356-8 ####[facility] LABORATORYCLIA [id number] [address] Nitrite Ql (U) Negative Normal Negative [facility] Comment on above: Order Comment: Speci men Type: URINE SPECIMENOrdering Facility: [facility] Address: [address] [address] Performed By: #### 2 4356-8 ####[facility] LABORATORYCLIA [id number] [address] pH (U) 6.0 [pH] Normal 5.0-8.0 [facility] Comment on above: Order Comment: Speci men Type: URINE SPECIMENOrdering Facility: [facility] Address: [address] [address] Performed By: #### 2 4356-8 ####[facility] LABORATORYCLIA [id number] [address] Protein (U) [Mass/Vol] 1+ Abnormal Negative [facility] Comment on above: Order Comment: Speci men Type: URINE SPECIMENOrdering Facility: [facility] Address: [address] [place] [address] Performed By: #### 2 4356-8 ####[facility] LABORATORYCLIA [id number] [address] RBC LM.HPF (Urine sed) [#/Area] 0-3 /HPF Normal 0-3 /HPF [facility] Comment on above: Order Comment: Speci men Type: URINE SPECIMENOrdering Facility: [facility] Address: [address] [place] [address] Performed By: #### 2 4356-8 ####[facility] LABORATORYCLIA [id number] [address] Specific gravity (U) [Rel density] 1.018 Normal 1.005-1.030 [facility] Comment on above: Order Comment: Speci men Type: URINE SPECIMENOrdering Facility: [facility] Address: [address] [place] [address] Performed By: #### 2 4356-8 ####[facility] LABORATORYCLIA [id number] [address] Urobilinogen Ql (U) Normal Normal Negative [facility] Comment on above: Order Comment: Speci men Type: URINE SPECIMENOrdering Facility: [facility] Address: [address] [place] [address] Performed By: #### 2 4356-8 ####[facility] LABORATORYCLIA [id number] [address] WBC LM.HPF (Urine sed) [#/Area] 0-5 /HPF Normal 0-5 /HPF [facility] Comment on above: Order Comment: Speci men Type: URINE SPECIMENOrdering Facility: [facility] Address: [address] [place] [address] Performed By: #### 2 4356-8 ####[facility] LABORATORYCLIA [id number] [address] Vancomycin random [Mass/Vol] on 07-23-2021 Vancomycin [Mass/Vol] 12.9 ug/mL Normal 10.0-20.0 [facility] Comment on above: Order Comment: Speci men Type: BLOOD SPECIMENOrdering Facility: [facility] Address: [address] [place] [address] Result Comment: Refe rence ranges and high/low indicator flags are provided as general guidelines only. The treating physician must determine appropriate target levels/dosing based on the specific clinical situation. Performed By: #### 4 091-5 ####[facility] LABORATORYCLIA [id number] [address] STATES OF [facility] XR CHEST 1V FRONTALon 2021 XR CHEST 1V FRONTAL Normal [facility] XR CHEST 1V FRONTAL Normal [facility] aPTT PPPon 07-23-2021 aPTT Coag (PPP) [Time] 32.3 s Normal 23.0-32.4 [facility] Comment on above: Order Comment: Speci men Type: BLOOD SPECIMENOrdering Facility: [facility] Address: [address] [place] [address] Performed By: #### 1 4979-9 ####[facility] LABORATORYCLIA [id number] [address] STATES OF [facility] aPTT Coag (PPP) [Time] 57.9 s High 23.0-32.4 [facility] Comment on above: Order Comment: Speci men Type: BLOOD SPECIMENOrdering Facility: [facility] Address: [address] [place] [address] Performed By: #### 1 4979-9 ####[facility] LABORATORYCLIA [id number] [address] aPTT Coag (PPP) [Time] 46.3 s High 23.0-32.4 [facility] Comment on above: Order Comment: Speci men Type: BLOOD SPECIMENOrdering Facility: [facility] Address: [address] [place] [address] Performed By: #### 1 4979-9 ####[facility] LABORATORYCLIA [id number] [place] [address] [place] Basic metabolic 2000 panelon 07-22-2021 Anion gap [Moles/Vol] 8 mmol/L Low -18 [facility] Comment on above: Order Comment: Speci men Type: BLOOD SPECIMENOrdering Facility: [facility] Address: [address] [place] [address] Performed By: #### 2 4321-2 ####[facility] LABORATORYCLIA [id number] [place] [address] [place] Calcium [Mass/Vol] 9.5 mg/dL Normal 8.5-10.2 [facility] Comment on above: Order Comment: Speci men Type: BLOOD SPECIMENOrdering Facility: [facility] Address: [address] [place] [address] Performed By: #### 2 4321-2 ####[facility] LABORATORYCLIA [id number] [address] [place] Chloride [Moles/Vol] 105 mmol/L Normal 97-105 [facility] Comment on above: Order Comment: Speci men Type: BLOOD SPECIMENOrdering Facility: [facility] Address: [address] [place] [address] Performed By: #### 2 4321-2 ####[facility] LABORATORYCLIA [id number] [place] [address] [place] CO2 [Moles/Vol] 32 mmol/L High 22-30 [facility] Comment on above: Order Comment: Speci men Type: BLOOD SPECIMENOrdering Facility: [facility] Address: [address] [place] [address] Performed By: #### 2 4321-2 ####[facility] LABORATORYCLIA [id number] [address] STATES OF [facility] Creatinine [Mass/Vol] 0.75 mg/dL Normal 0.73-1.22 [facility] Comment on above: Order Comment: Johncara feldman Type: BLOOD SPECIMENOrdering Facility: [facility] Address: [address] [place] [address] Performed By: #### 2 4321-2 ####[facility] LABORATORYCLIA [id number] [address] ESTIMATED GLOMERULAR FILTRATION RATE 98 mL/min/1.73m??? Normal >=60 [facility] Comment on above: Order Comment: Shira feldman Type: BLOOD SPECIMENOrdering Facility: [facility] Address: [address] [place] [address] Result Comment: Luzmaria mated Glomerular Filtration Rate [...] #### 2 4321-2 ####[facility] H[facility]PITALIA [id number] [address] Glucose [Mass/Vol] 128 mg/dL High 74-99 [facility] Comment on above: Order Comment: Shira francia Type: BLOOD SPECIMENOrdering Facility: [facility] Address: [address] [place] [address] Result Comment: The [place] Diabetes Association (ADA) provides guidance for cutoff [...] Standards of Medical Care in Diabetes 2016, [place] [employer]. Diabetes Care. 2016.39(Suppl 1). Performed By: #### 2 4321-2 ####[facility] LABORATORYCLIA [id number] [address] OF [facility] Potassium [Moles/Vol] 3.7 mmol/L Normal 3.7-5.1 [facility] Comment on above: Order Comment: Speci men Type: BLOOD SPECIMENOrdering Facility: [facility] Address: [address] [place] [address] Performed By: #### 2 4321-2 ####[facility] LABORATORYCLIA [id number] [address] Sodium [Moles/Vol] 145 mmol/L High 136-144 [facility] Comment on above: Order Comment: Speci men Type: BLOOD SPECIMENOrdering Facility: [facility] Address: [address] [place] [address] Performed By: #### 2 4321-2 ####[facility] LABORATORYCLIA [id number] [address] Urea nitrogen [Mass/Vol] 39 mg/dL High 9-24 [facility] Comment on above: Order Comment: Speci men Type: BLOOD SPECIMENOrdering Facility: [facility] Address: [address] [place] [address] Performed By: #### 2 4321-2 ####[facility] LABORATORYCLIA [id number] [address] [place] CASE MANAGEMon 07-22-2021 CASE MANAGEM Normal [facility] CBC W Auto Differential pane l (Bld)on 07-22-2021 Basophils (Bld) [#/Vol] 0.06 10*3/uL Normal <0.11 [facility] Comment on above: Order Comment: Speci men Type: BLOOD SPECIMENOrdering Facility: [facility] Address: [address] [place] [address] Performed By: #### 5 7021-8 ####[facility]ATORYCLIA [id number] [address] [facility] Basophils/100 WBC (Bld) 0.5 % Normal [facility] Comment on above: Order Comment: Speci men Type: BLOOD SPECIMENOrdering Facility: [facility] Address: [address] [place] [address] Performed By: #### 5 7021-8 ####[facility]ORATORYCLIA [id number] [address] [place] Differential cell count method Nom (Bld) Auto Normal [facility] Comment on above: Order Comment: Speci men Type: BLOOD SPECIMENOrdering Facility: [facility] Address: [address] [place] [address] Performed By: #### 5 7021-8 ####[facility]ATORYCLIA [id number] [address] [place] Eosinophils (Bld) [#/Vol] 0.44 10*3/uL Normal <0.46 [facility] Comment on above: Order Comment: Speci men Type: BLOOD SPECIMENOrdering Facility: [facility] Address: [address] [place] [address] Performed By: #### 5 7021-8 ####[facility]ATORYCLIA [id number] [address] Eosinophils/100 WBC (Bld) 3.9 % Normal [facility] Comment on above: Order Comment: Speci men Type: BLOOD SPECIMENOrdering Facility: [facility] Address: [address] [place] [address] Performed By: #### 5 7021-8 ####[facility]ORATORYCLIA [id number] [address] [place] Erythrocyte distribution width (RBC) [Ratio] 17.0 % High 11.5-15.0 [facility] Comment on above: Order Comment: Speci men Type: BLOOD SPECIMENOrdering Facility: [facility] Address: [address] [address] Performed By: #### 5 7021-8 ####[facility] LABORATORYCLIA [id number] [address] Hematocrit (Bld) [Volume fraction] 32.0 % Low 39.0-51.0 [facility] Comment on above: Order Comment: Speci men Type: BLOOD SPECIMENOrdering Facility: [facility] Address: [address] [place] [address] Performed By: #### 5 7021-8 ####[facility]ORATORYCLIA [id number] [address] Hemoglobin (Bld) [Mass/Vol] 9.3 g/dL Low 13.0-17.0 [facility] Comment on above: Order Comment: Speci men Type: BLOOD SPECIMENOrdering Facility: [facility] Address: [address] [place] [address] Performed By: #### 5 7021-8 ####[facility] LABORATORYCLIA [id number] [address] IMMATURE GRAN % 0.5 % Normal [facility] [facility] Comment on above: Order Comment: Speci men Type: BLOOD SPECIMENOrdering Facility: [facility] Address: [address] [place] [address] Performed By: #### 5 7021-8 ####[facility] LABORATORYCLIA [id number] [address] IMMATURE GRAN ABS 0.06 k/uL Normal <0.10 [facility] Comment on above: Order Comment: Speci men Type: BLOOD SPECIMENOrdering Facility: [facility] Address: [address] [place] [address] Performed By: #### 5 7021-8 ####[facility] LABORATORYCLIA [id number] [address] OF [facility] Lymphocytes (Bld) [#/Vol] 1.83 10*3/uL Normal 1.00-4.00 [facility] Comment on above: Order Comment: Speci men Type: BLOOD SPECIMENOrdering Facility: [facility] Address: [address] [place] [address] Performed By: #### 5 7021-8 ####[facility] LABORATORYCLIA [id number] [address] Lymphocytes/100 WBC (Bld) 16.1 % Normal [facility] Comment on above: Order Comment: Speci men Type: BLOOD SPECIMENOrdering Facility: [facility] Address: [address] [place] [address] Performed By: #### 5 7021-8 ####[facility] LABORATORYCLIA [id number] [address] MCH (RBC) [Entitic mass] 27.0 pg Normal 26.0-34.0 [facility] Comment on above: Order Comment: Speci men Type: BLOOD SPECIMENOrdering Facility: [facility] Address: [address] [place] [address] Performed By: #### 5 7021-8 ####[facility] LABORATORYCLIA [id number] [address] STATES OF [facility] MCHC (RBC) [Mass/Vol] 29.1 g/dL Low 30.5-36.0 [facility] Comment on above: Order Comment: Speci men Type: BLOOD SPECIMENOrdering Facility: [facility] Address: [address] [place] [address] Performed By: #### 5 7021-8 ####[facility] LABORATORYCLIA [id number] [address] STATES OF [facility] MCV (RBC) [Entitic vol] 92.8 fL Normal 80.0-100.0 [facility] Comment on above: Order Comment: Speci men Type: BLOOD SPECIMENOrdering Facility: [facility] Address: [address] [place] [address] Performed By: #### 5 7021-8 ####[facility] LABORATORYCLIA [id number] [address] [place] Monocytes (Bld) [#/Vol] 0.87 10*3/uL High <0.87 [facility] Comment on above: Order Comment: Speci men Type: BLOOD SPECIMENOrdering Facility: [facility] Address: [address] [place] [address] Performed By: #### 5 7021-8 ####[facility] LABORATORYCLIA [id number] [address] [place] Monocytes/100 WBC (Bld) 7.6 % Normal [facility] Comment on above: Order Comment: Speci men Type: BLOOD SPECIMENOrdering Facility: [facility] Address: [address] [place] [address] Performed By: #### 5 7021-8 ####[facility] LABORATORYCLIA [id number] [address] [place] Neutrophils (Bld) [#/Vol] 8.12 10*3/uL High 1.45-7.50 [facility] Comment on above: Order Comment: Speci men Type: BLOOD SPECIMENOrdering Facility: [facility] Address: [address] [place] [address] Performed By: #### 5 7021-8 ####[facility] LABORATORYCLIA [id number] [address] [place] Neutrophils/100 WBC (Bld) 71.4 % Normal [facility] Comment on above: Order Comment: Speci men Type: BLOOD SPECIMENOrdering Facility: [facility] Address: [address] [place] [address] Performed By: #### 5 7021-8 ####[facility] LABORATORYCLIA [id number] [address] [place] Nucleated RBC (Bld) [#/Vol] 10*3/uL Normal <0.01 [facility] Comment on above: Order Comment: Speci men Type: BLOOD SPECIMENOrdering Facility: [facility] Address: [address] [place] [address] Performed By: #### 5 7021-8 ####[facility] LABORATORYCLIA [id number] [address] [place] Nucleated RBC/100 WBC (Bld) [Ratio] 0.0 /100 WBC Normal [facility] Comment on above: Order Comment: Speci men Type: BLOOD SPECIMENOrdering Facility: [facility] Address: [address] [place] [address] Performed By: #### 5 7021-8 ####[facility] LABORATORYCLIA [id number] [address] [place] Platelet mean volume (Bld) [Entitic vol] 10.8 fL Normal 9.0-12.7 [facility] Comment on above: Order Comment: Speci men Type: BLOOD SPECIMENOrdering Facility: [facility] Address: [address] [place] [address] Performed By: #### 5 7021-8 ####[facility] LABORATORYCLIA [id number] [address] [place] Platelets (Bld) [#/Vol] 362 10*3/uL Normal 150-400 [facility] Comment on above: Order Comment: Speci men Type: BLOOD SPECIMENOrdering Facility: [facility] Address: [address] [place] [address] Performed By: #### 5 7021-8 ####[facility] LABORATORYCLIA [id number] [address] [place] RBC (Bld) [#/Vol] 3.45 10*6/uL Low 4.20-6.00 [facility] Comment on above: Order Comment: Speci men Type: BLOOD SPECIMENOrdering Facility: [facility] Address: [address] [place] [address] Performed By: #### 5 7021-8 ####[facility] LABORATORYCLIA [id number] [address] [place] WBC (Bld) [#/Vol] 11.38 10*3/uL High 3.70-11.00 [facility] Comment on above: Order Comment: Speci men Type: BLOOD SPECIMENOrdering Facility: [facility] Address: [address] [place] [address] Performed By: #### 5 7021-8 ####[facility] LABORATORYCLIA [id number] [address] OF [place] Magnesium SerPl-mCncon 07-22 Magnesium [Mass/Vol] 2.3 mg/dL Normal 1.7-2.3 [facility] Comment on above: Order Comment: Speci men Type: BLOOD SPECIMENOrdering Facility: [facility] Address: [address] [place] [address] Performed By: #### 1 9123-9, 2777-1, 76339-5 ####[facility] LABORATORYCLIA [id number] [address] [place] NT-proBNP SerPl-ncon 07-22 Natriuretic peptide.B prohormone N-Terminal [Mass/Vol] 328 pg/mL High <125 [facility] Comment on above: Order Comment: Speci men Type: BLOOD SPECIMENOrdering Facility: [facility] Address: [address] [place] [address] Performed By: #### 1 9123-9, 2777-1, 13220-7 ####[facility] LABORATORYCLIA [id number] [address] [place] NURSING PROGon 07-22-2021 NURSING PROG Normal [facility] NUTRITIONon 07-22-2021 NUTRITION Normal [facility] Phosphate SerPl-mCncon 07-22 Phosphate [Mass/Vol] 3.5 mg/dL Normal 2.7-4.8 [facility] Comment on above: Order Comment: Speci men Type: BLOOD SPECIMENOrdering Facility: [facility] Address: [address] [place] [address] Performed By: #### 1 9123-9, 2777-1, 11318-4 ####[facility] LABORATORYCLIA [id number] [address] [place] THERAPY NTon 07-22-2021 THERAPY NT Normal [facility] THERAPY NT Normal [facility] aPTT PPPon 07-22-2021 aPTT Coag (PPP) [Time] 50.1 s High 23.0-32.4 [facility] Comment on above: Order Comment: Speci men Type: BLOOD SPECIMENOrdering Facility: [facility] Address: [address] [place] [address] Performed By: #### 1 4979-9 ####[facility] LABORATORYCLIA [id number] [address] STATES OF [facility] ALLIED HEALTHon 07-21-2021 ALLIED HEALTH Normal [facility] Bacteria Spec Resp Culton Bacteria identified Respiratory culture Nom (Unsp spec) Abnormal [facility] Comment on above: Performed By: #### 3 2355-0 ####[facility] LABORATORYCLIA [id number] [place] [address] [place] Basic metabolic 2000 panelon 07-21-2021 Anion gap [Moles/Vol] 9 mmol/L Normal 9-18 [facility] Comment on above: Order Comment: Speci men Type: BLOOD SPECIMENOrdering Facility: [facility] Address: [address] [place] [address] Performed By: #### 1 9123-9, 2777-1, 69089-7 ####[facility] LABORATORYCLIA [id number] [address] [place] Calcium [Mass/Vol] 9.9 mg/dL Normal 8.5-10.2 [facility] Comment on above: Order Comment: Speci men Type: BLOOD SPECIMENOrdering Facility: [facility] Address: [address] [place] [address] Performed By: #### 1 9123-9, 2777-1, 04770-3 ####[facility] LABORATORYCLIA [id number] [place] [address] [place] Chloride [Moles/Vol] 103 mmol/L Normal 97-105 [facility] Comment on above: Order Comment: Speci men Type: BLOOD SPECIMENOrdering Facility: [facility] Address: [address] [place] [address] Performed By: #### 1 9123-9, 2777, 24069-6 ####[facility] LABORATORYCLIA [id number] [address] [place] CO2 [Moles/Vol] 33 mmol/L High 22-30 [facility] Comment on above: Order Comment: Speci men Type: BLOOD SPECIMENOrdering Facility: [facility] Address: [address] [place] [address] Performed By: #### 1 9123-9, 27711-04, 96802-8 ####[facility] LABORATORYCLIA [id number] [address] STATES OF [facility] Creatinine [Mass/Vol] 0.80 mg/dL Normal 0.73-1.22 [facility] Comment on above: Order Comment: Speci men Type: BLOOD SPECIMENOrdering Facility: [facility] Address: [address] [place] [address] Performed By: #### 1 9123-9, 27711-04, 76886-1 ####[facility] LABORATORYCLIA [id number] [address] ESTIMATED GLOMERULAR FILTRATION RATE 96 mL/min/1.73m??? Normal >=60 [facility] Comment on above: Order Comment: Speci men Type: BLOOD SPECIMENOrdering Facility: [facility] Address: [address] [place] [address] Result Comment: Luzmaria mated Glomerular Filtration Rate [...] GFR. Performed By: #### 1 9123-9, 2777-, 42753-2 ####[facility] LABORATORYCLIA [id number] [place] [address] [place] Glucose [Mass/Vol] 148 mg/dL High 74-99 [facility] Comment on above: Order Comment: Speci men Type: BLOOD SPECIMENOrdering Facility: [facility] Address: [address] [place] [address] Result Comment: The [place] [employer] (ADA) provides guidance for cutoff [...] Standards of Medical Care in Diabetes 2016, [place] [employer]. Diabetes Care. 2016.39(Suppl 1). Performed By: #### 1 9123-9, 2777-, 47301-4 ####[facility] LABORATORYCLIA [id number] [place] [address] [place] Potassium [Moles/Vol] 4.1 mmol/L Normal 3.7-5.1 [facility] Comment on above: Order Comment: Speci men Type: BLOOD SPECIMENOrdering Facility: [facility] Address: [address] [place] [address] Performed By: #### 1 9123-9, 2777-1, 70881-8 ####[facility] LABORATORYCLIA [id number] [place] [address] [place] Sodium [Moles/Vol] 145 mmol/L High 136-144 [facility] Comment on above: Order Comment: Speci men Type: BLOOD SPECIMENOrdering Facility: [facility] Address: [address] [place] [address] Performed By: #### 1 9123-9, 2777-1, 40156-7 ####[facility] LABORATORYCLIA [id number] [address] [facility] Urea nitrogen [Mass/Vol] 40 mg/dL High 9-24 [facility] Comment on above: Order Comment: Speci men Type: BLOOD SPECIMENOrdering Facility: [facility] Address: [address] [place] [address] Performed By: #### 1 9123-9, 27711-04, 47319-1 ####[facility] LABORATORYCLIA [id number] [address] [place] CBC W Auto Differential pane l (Bld)on 07-21-2021 Basophils (Bld) [#/Vol] 0.06 10*3/uL Normal <0.11 [facility] Comment on above: Order Comment: Speci men Type: BLOOD SPECIMENOrdering Facility: [facility] Address: [address] [place] [address] Performed By: #### 5 7021-8 ####[facility] LABORATORYCLIA [id number] [address] [place] Basophils/100 WBC (Bld) 0.4 % Normal [facility] Comment on above: Order Comment: Speci men Type: BLOOD SPECIMENOrdering Facility: [facility] Address: [address] [place] [address] Performed By: #### 5 7021-8 ####[facility] LABORATORYCLIA [id number] [address] Differential cell count method Nom (Bld) Auto Normal [facility] Comment on above: Order Comment: Speci men Type: BLOOD SPECIMENOrdering Facility: [facility] Address: [address] [place] [address] Performed By: #### 5 7021-8 ####[facility] LABORATORYCLIA [id number] [place] [address] [place] Eosinophils (Bld) [#/Vol] 0.04 10*3/uL Normal <0.46 [facility] Comment on above: Order Comment: Speci men Type: BLOOD SPECIMENOrdering Facility: [facility] Address: [address] [place] [address] Performed By: #### 5 7021-8 ####[facility] LABORATORYCLIA [id number] [address] [place] Eosinophils/100 WBC (Bld) 0.3 % Normal [facility] Comment on above: Order Comment: Speci men Type: BLOOD SPECIMENOrdering Facility: [facility] Address: [address] [place] [address] Performed By: #### 5 7021-8 ####[facility] LABORATORYCLIA [id number] [address] [place] Erythrocyte distribution width (RBC) [Ratio] 17.0 % High 11.5-15.0 [facility] Comment on above: Order Comment: Speci men Type: BLOOD SPECIMENOrdering Facility: [facility] Address: [address] [place] [address] Performed By: #### 5 7021-8 ####[facility] LABORATORYCLIA [id number] [address] [place] Hematocrit (Bld) [Volume fraction] 33.1 % Low 39.0-51.0 [facility] Comment on above: Order Comment: Speci men Type: BLOOD SPECIMENOrdering Facility: [facility] Address: [address] [place] [address] Performed By: #### 5 7021-8 ####[facility] LABORATORYCLIA [id number] [address] [place] Hemoglobin (Bld) [Mass/Vol] 9.7 g/dL Low 13.0-17.0 [facility] Comment on above: Order Comment: Speci men Type: BLOOD SPECIMENOrdering Facility: [facility] Address: [address] [place] [address] Performed By: #### 5 7021-8 ####[facility] LABORATORYCLIA [id number] [address] IMMATURE GRAN % 0.5 % Normal [facility] Comment on above: Order Comment: Speci men Type: BLOOD SPECIMENOrdering Facility: [facility] Address: [address] [place] [address] Performed By: #### 5 7021-8 ####[facility] LABORATORYCLIA [id number] [address] IMMATURE GRAN ABS 0.07 k/uL Normal <0.10 [facility] Comment on above: Order Comment: Speci men Type: BLOOD SPECIMENOrdering Facility: [facility] Address: [address] [place] [address] Performed By: #### 5 7021-8 ####[facility] LABORATORYCLIA [id number] [address] Lymphocytes (Bld) [#/Vol] 1.99 10*3/uL Normal 1.00-4.00 [facility] Comment on above: Order Comment: Speci men Type: BLOOD SPECIMENOrdering Facility: [facility] Address: [address] [place] [address] Performed By: #### 5 7021-8 ####[facility] LABORATORYCLIA [id number] [address] Lymphocytes/100 WBC (Bld) 13.4 % Normal [facility] Comment on above: Order Comment: Speci men Type: BLOOD SPECIMENOrdering Facility: [facility] Address: [address] [place] [address] Performed By: #### 5 7021-8 ####[facility] LABORATORYCLIA [id number] [address] [facility] MCH (RBC) [Entitic mass] 27.2 pg Normal 26.0-34.0 [facility] Comment on above: Order Comment: Speci men Type: BLOOD SPECIMENOrdering Facility: [facility] Address: [address] [place] [address] Performed By: #### 5 7021-8 ####[facility] LABORATORYCLIA [id number] [address] [place] MCHC (RBC) [Mass/Vol] 29.3 g/dL Low 30.5-36.0 [facility] Comment on above: Order Comment: Speci men Type: BLOOD SPECIMENOrdering Facility: [facility] Address: [address] [place] [address] Performed By: #### 5 7021-8 ####[facility] LABORATORYCLIA [id number] [address] [place] MCV (RBC) [Entitic vol] 92.7 fL Normal 80.0-100.0 [facility] Comment on above: Order Comment: Speci men Type: BLOOD SPECIMENOrdering Facility: [facility] Address: [address] [place] [address] Performed By: #### 5 7021-8 ####[facility] LABORATORYCLIA [id number] [address] [place] Monocytes (Bld) [#/Vol] 1.10 10*3/uL High <0.87 [facility] Comment on above: Order Comment: Speci men Type: BLOOD SPECIMENOrdering Facility: [facility] Address: [address] [place] [address] Performed By: #### 5 7021-8 ####[facility] LABORATORYCLIA [id number] [address] OF [facility] Monocytes/100 WBC (Bld) 7.4 % Normal [facility] Comment on above: Order Comment: Speci men Type: BLOOD SPECIMENOrdering Facility: [facility] Address: [address] [place] [address] Performed By: #### 5 7021-8 ####[facility] LABORATORYCLIA [id number] [address] [place] Neutrophils (Bld) [#/Vol] 11.61 10*3/uL High 1.45-7.50 [facility] Comment on above: Order Comment: Speci men Type: BLOOD SPECIMENOrdering Facility: [facility] Address: [address] [place] [address] Performed By: #### 5 7021-8 ####[facility]ORATORYCLIA [id number] [address] Neutrophils/100 WBC (Bld) 78.0 % Normal [facility] Comment on above: Order Comment: Speci men Type: BLOOD SPECIMENOrdering Facility: [facility] Address: [address] [place] [address] Performed By: #### 5 7021-8 ####[facility] LABORATORYCLIA [id number] [address] [place] Nucleated RBC (Bld) [#/Vol] 10*3/uL Normal <0.01 [facility] Comment on above: Order Comment: Speci men Type: BLOOD SPECIMENOrdering Facility: [facility] Address: [address] [place] [address] Performed By: #### 5 7021-8 ####[facility] LABORATORYCLIA [id number] [address] Nucleated RBC/100 WBC (Bld) [Ratio] 0.0 /100 WBC Normal [facility] Comment on above: Order Comment: Speci men Type: BLOOD SPECIMENOrdering Facility: [facility] Address: [address] [place] [address] Performed By: #### 5 7021-8 ####[facility] LABORATORYCLIA [id number] [address] [place] Platelet mean volume (Bld) [Entitic vol] 10.4 fL Normal 9.0-12.7 [facility] Comment on above: Order Comment: Speci men Type: BLOOD SPECIMENOrdering Facility: [facility] Address: [address] [place] [address] Performed By: #### 5 7021-8 ####[facility] LABORATORYCLIA [id number] [place] [address] [place] Platelets (Bld) [#/Vol] 396 10*3/uL Normal 150-400 [facility] Comment on above: Order Comment: Speci men Type: BLOOD SPECIMENOrdering Facility: [facility] Address: [address] [place] [address] Performed By: #### 5 7021-8 ####[facility] LABORATORYCLIA [id number] [place] [address] [place] RBC (Bld) [#/Vol] 3.57 10*6/uL Low 4.20-6.00 [facility] Comment on above: Order Comment: Speci men Type: BLOOD SPECIMENOrdering Facility: [facility] Address: [address] [place] [address] Performed By: #### 5 7021-8 ####[facility] LABORATORYCLIA [id number] [address] STATES OF [facility] WBC (Bld) [#/Vol] 14.87 10*3/uL High 3.70-11.00 [facility] Comment on above: Order Comment: Speci men Type: BLOOD SPECIMENOrdering Facility: [facility] Address: [address] [place] [address] Performed By: #### 5 7021-8 ####[facility] LABORATORYCLIA [id number] [address] OF [facility] Gas and Carbon monoxide pane l (BldV)on 07-21-2021 Base excess Calc (BldV) [Moles/Vol] 7 mmol/L High 0-2 [facility] Comment on above: Order Comment: Speci men Type: VENOUS BLOOD SPECIMENOrdering Facility: [facility] Address: [address] [place] [address] Performed By: #### 2 4344-4 ####[facility] LABORATORYCLIA [id number] [address] Body temperature 98.6 [degF] Normal [facility] Comment on above: Order Comment: Speci men Type: VENOUS BLOOD SPECIMENOrdering Facility: [facility] Address: [address] [place] [address] Performed By: #### 2 4344-4 ####[facility] LABORATORYCLIA [id number] [place] [address] [place] CALCIUM IONIZED, PH CORRECTED 1.21 mmol/L Normal 1.08-1.30 [facility] Comment on above: Order Comment: Speci men Type: VENOUS BLOOD SPECIMENOrdering Facility: [facility] Address: [address] [place] [address] Performed By: #### 2 4344-4 ####[facility] LABORATORYCLIA [id number] [place] [address] [place] Calcium.ionized (BldV) [Mass/Vol] 1.23 mmol/L Normal 1.08-1.30 [facility] Comment on above: Order Comment: Speci men Type: VENOUS BLOOD SPECIMENOrdering Facility: [facility] Address: [address] [place] [address] Performed By: #### 2 4344-4 ####[facility] LABORATORYCLIA [id number] [place] [address] [place] Carboxyhemoglobin (BldV) [Mass fraction] 2.3 % High 0.0-2.0 [facility] Comment on above: Order Comment: Speci men Type: VENOUS BLOOD SPECIMENOrdering Facility: [facility] Address: [address] [place] [address] Result Comment: Carb oxyhemoglobin Reference Range for Smokers: 2.0-8.0% Performed By: #### 2 4344-4 ####[facility] LABORATORYCLIA [id number] [address] [place] CO2 (BldV) [Partial pressure] 58 mm[Hg] High 42-55 [facility] Comment on above: Order Comment: Speci men Type: VENOUS BLOOD SPECIMENOrdering Facility: [facility] Address: [address] [place] [address] Performed By: #### 2 4344-4 ####[facility] LABORATORYCLIA [id number] [place] [address] [place] CO2 [Moles/Vol] 31 mmol/L High 25-29 [facility] Comment on above: Order Comment: Speci men Type: VENOUS BLOOD SPECIMENOrdering Facility: [facility] Address: [address] [place] [address] Performed By: #### 2 4344-4 ####[facility] LABORATORYCLIA [id number] [place] [address] [place] Glucose [Mass/Vol] 146 mg/dL High 60-105 [facility] Comment on above: Order Comment: Speci men Type: VENOUS BLOOD SPECIMENOrdering Facility: [facility] Address: [address] [place] [address] Performed By: #### 2 4344-4 ####[facility] LABORATORYCLIA [id number] [place] [address] [place] HCO3 (Bld) [Moles/Vol] 33 mmol/L High 24-28 [facility] Comment on above: Order Comment: Speci men Type: VENOUS BLOOD SPECIMENOrdering Facility: [facility] Address: [address] [place] [address] Performed By: #### 2 4344-4 ####[facility] LABORATORYCLIA [id number] [place] [address] [place] Hematocrit (Bld) [Volume fraction] 30.1 % Low 39.0-51.0 [facility] Comment on above: Order Comment: Speci men Type: VENOUS BLOOD SPECIMENOrdering Facility: [facility] Address: [address] [address] Performed By: #### 2 4344-4 ####[facility] LABORATORYCLIA [id number] [place] [address] [place] Hemoglobin (Bld) [Mass/Vol] 9.7 g/dL Low 13.0-17.0 [facility] Comment on above: Order Comment: Speci men Type: VENOUS BLOOD SPECIMENOrdering Facility: [facility] Address: [address] [place] [address] Performed By: #### 2 4344-4 ####[facility] LABORATORYCLIA [id number] [place] [id number] [place] Methemoglobin (Bld) [Mass fraction] % Normal 0.0-1.5 [facility] Comment on above: Order Comment: Speci men Type: VENOUS BLOOD SPECIMENOrdering Facility: [facility] Address: [address] [place] [address] Performed By: #### 2 4344-4 ####[facility] LABORATORYCLIA [id number] [address] [place] O2 THERAPY NC = Nasal Cannula Normal [facility] Comment on above: Order Comment: Speci men Type: VENOUS BLOOD SPECIMENOrdering Facility: [facility] Address: [address] [place] [address] Performed By: #### 2 4344-4 ####[facility] LABORATORYCLIA [id number] [address] [place] Oxygen (BldV) [Partial pressure] 64 mm[Hg] High 35-45 [facility] Comment on above: Order Comment: Speci men Type: VENOUS BLOOD SPECIMENOrdering Facility: [facility] Address: [address] [place] [address] Performed By: #### 2 4344-4 ####[facility] LABORATORYCLIA [id number] [address] [place] Oxygen saturation in Blood 90 % High 60-85 [facility] Comment on above: Order Comment: Speci men Type: VENOUS BLOOD SPECIMENOrdering Facility: [facility] Address: [address] [address] Performed By: #### 2 4344-4 ####[facility] LABORATORYCLIA [id number] [address] [place] Oxyhemoglobin (BldV) [Mass fraction] 87 % High 60-85 [facility] Comment on above: Order Comment: Speci men Type: VENOUS BLOOD SPECIMENOrdering Facility: [facility] Address: [address] [place] [address] Performed By: #### 2 4344-4 ####[facility] LABORATORYCLIA [id number] [place] [address] [place] pH (BldV) 7.38 [pH] Normal 7.32-7.42 [facility] Comment on above: Order Comment: Speci men Type: VENOUS BLOOD SPECIMENOrdering Facility: [facility] Address: [address] [place] [address] Performed By: #### 2 4344-4 ####[facility] LABORATORYCLIA [id number] [address] [place] Potassium [Moles/Vol] 3.8 mmol/L Normal 3.5-5.0 [facility] Comment on above: Order Comment: Speci men Type: VENOUS BLOOD SPECIMENOrdering Facility: [facility] Address: [address] [place] [address] Performed By: #### 2 4344-4 ####[facility] LABORATORYCLIA [id number] [address] [place] Sodium [Moles/Vol] 145 mmol/L High 136-144 [facility] Comment on above: Order Comment: Speci men Type: VENOUS BLOOD SPECIMENOrdering Facility: [facility] Address: [address] [place] [address] Performed By: #### 2 4344-4 ####[facility] LABORATORYCLIA [id number] [address] [place] Base excess Calc (BldV) [Moles/Vol] 8 mmol/L High 0-2 [facility] Comment on above: Order Comment: Speci men Type: VENOUS BLOOD SPECIMENOrdering Facility: [facility] Address: [address] [place] [address] Performed By: #### 2 4344-4 ####[facility] LABORATORYCLIA [id number] [address] [place] Body temperature 100.22 [degF] Normal [facility] Comment on above: Order Comment: Speci men Type: VENOUS BLOOD SPECIMENOrdering Facility: [facility] Address: [address] [place] [address] Performed By: #### 2 4344-4 ####[facility] LABORATORYCLIA [id number] [address] STATES OF [facility] CALCIUM IONIZED, PH CORRECTED 1.25 mmol/L Normal 1.08-1.30 [facility] Comment on above: Order Comment: Speci men Type: VENOUS BLOOD SPECIMENOrdering Facility: [facility] Address: [address] [place] [address] Performed By: #### 2 4344-4 ####[facility] LABORATORYCLIA [id number] [address] Calcium.ionized (BldV) [Mass/Vol] 1.24 mmol/L Normal 1.08-1.30 [facility] Comment on above: Order Comment: Speci men Type: VENOUS BLOOD SPECIMENOrdering Facility: [facility] Address: [address] [place] [address] Performed By: #### 2 4344-4 ####[facility] LABORATORYCLIA [id number] [address] [place] Carboxyhemoglobin (BldV) [Mass fraction] 2.5 % High 0.0-2.0 [facility] Comment on above: Order Comment: Speci men Type: VENOUS BLOOD SPECIMENOrdering Facility: [facility] Address: [address] [place] [address] Result Comment: Carb oxyhemoglobin Reference Range for Smokers: 2.0-8.0% Performed By: #### 2 4344-4 ####[facility] LABORATORYCLIA [id number] [address] [place] CO2 (BldV) [Partial pressure] 53 mm[Hg] Normal 42-55 [facility] Comment on above: Order Comment: Speci men Type: VENOUS BLOOD SPECIMENOrdering Facility: [facility] Address: [address] [place] [address] Performed By: #### 2 4344-4 ####[facility] LABORATORYCLIA [id number] [address] [place] CO2 [Moles/Vol] 31 mmol/L High 25-29 [facility] Comment on above: Order Comment: Speci men Type: VENOUS BLOOD SPECIMENOrdering Facility: [facility] Address: [address] [place] [address] Performed By: #### 2 4344-4 ####[facility] LABORATORYCLIA [id number] [address] [place] CO2 adjusted to patient's actual temperature (BldV) [Partial pressure] 56 mmHg High 42-55 [facility] Comment on above: Order Comment: Speci men Type: VENOUS BLOOD SPECIMENOrdering Facility: [facility] Address: [address] [place] [address] Performed By: #### 2 4344-4 ####[facility] LABORATORYCLIA [id number] [address] [place] Glucose [Mass/Vol] 131 mg/dL High 60-105 [facility] Comment on above: Order Comment: Speci men Type: VENOUS BLOOD SPECIMENOrdering Facility: [facility] Address: [address] [place] [address] Performed By: #### 2 4344-4 ####[facility] LABORATORYCLIA [id number] [place] [address] [place] HCO3 (Bld) [Moles/Vol] 33 mmol/L High 24-28 [facility] Comment on above: Order Comment: Speci men Type: VENOUS BLOOD SPECIMENOrdering Facility: [facility] Address: [address] [place] [address] Performed By: #### 2 4344-4 ####[facility] LABORATORYCLIA [id number] [place] [address] [place] Hematocrit (Bld) [Volume fraction] 30.8 % Low 39.0-51.0 [facility] Comment on above: Order Comment: Speci men Type: VENOUS BLOOD SPECIMENOrdering Facility: [facility] Address: [address] [place] [address] Performed By: #### 2 4344-4 ####[facility] LABORATORYCLIA [id number] [address] OF [facility] Hemoglobin (Bld) [Mass/Vol] 10.0 g/dL Low 13.0-17.0 [facility] Comment on above: Order Comment: Speci men Type: VENOUS BLOOD SPECIMENOrdering Facility: [facility] Address: [address] [place] [address] Performed By: #### 2 4344-4 ####[facility] LABORATORYCLIA [id number] [address] Methemoglobin (Bld) [Mass fraction] % Normal 0.0-1.5 [facility] Comment on above: Order Comment: Speci men Type: VENOUS BLOOD SPECIMENOrdering Facility: [facility] Address: [address] [place] [address] Performed By: #### 2 4344-4 ####[facility] LABORATORYCLIA [id number] [address] O2 THERAPY NC = Nasal Cannula Normal [facility] Comment on above: Order Comment: Speci men Type: VENOUS BLOOD SPECIMENOrdering Facility: [facility] Address: [address] [place] [address] Performed By: #### 2 4344-4 ####[facility] LABORATORYCLIA [id number] [address] Oxygen (BldV) [Partial pressure] 58 mm[Hg] High 35-45 [facility] Comment on above: Order Comment: Speci men Type: VENOUS BLOOD SPECIMENOrdering Facility: [facility] Address: [address] [place] [address] Performed By: #### 2 4344-4 ####[facility] LABORATORYCLIA [id number] [place] [address] [place] Oxygen adjusted to patient's actual temperature (BldV) [Partial pressure] 61 mmHg High 35-45 [facility] Comment on above: Order Comment: Speci men Type: VENOUS BLOOD SPECIMENOrdering Facility: [facility] Address: [address] [address] Performed By: #### 2 4344-4 ####[facility] LABORATORYCLIA [id number] [address] [place] Oxygen saturation in Blood 88 % High 60-85 [facility] Comment on above: Order Comment: Speci men Type: VENOUS BLOOD SPECIMENOrdering Facility: [facility] Address: [address] [place] [address] Performed By: #### 2 4344-4 ####[facility] LABORATORYCLIA [id number] [address] Oxyhemoglobin (BldV) [Mass fraction] 85 % Normal 60-85 [facility] Comment on above: Order Comment: Speci men Type: VENOUS BLOOD SPECIMENOrdering Facility: [facility] Address: [address] [address] Performed By: #### 2 4344-4 ####[facility] LABORATORYCLIA [id number] [address] [place] pH (BldV) 7.41 [pH] Normal 7.32-7.42 [facility] Comment on above: Order Comment: Speci men Type: VENOUS BLOOD SPECIMENOrdering Facility: [facility] Address: [address] [address] Performed By: #### 2 4344-4 ####[facility] LABORATORYCLIA [id number] [address] [facility] pH adjusted to patient's actual temperature (BldV) 7.40 Normal 7.32-7.42 [facility] Comment on above: Order Comment: Speci men Type: VENOUS BLOOD SPECIMENOrdering Facility: [facility] Address: [address] [address] Performed By: #### 2 4344-4 ####[facility] LABORATORYCLIA [id number] [address] [place] Potassium [Moles/Vol] 4.0 mmol/L Normal 3.5-5.0 [facility] Comment on above: Order Comment: Speci men Type: VENOUS BLOOD SPECIMENOrdering Facility: [facility] Address: [address] [place] [address] Performed By: #### 2 4344-4 ####[facility] LABORATORYCLIA [id number] [address] STATES OF [facility] Sodium [Moles/Vol] 146 mmol/L High 136-144 [facility] Comment on above: Order Comment: Speci men Type: VENOUS BLOOD SPECIMENOrdering Facility: [facility] Address: [address] [place] [address] Performed By: #### 2 4344-4 ####[facility] LABORATORYCLIA [id number] [address] [place] Magnesium SerPl-ncon 07-21 Magnesium [Mass/Vol] 2.5 mg/dL High 1.7-2.3 [facility] Comment on above: Order Comment: Speci men Type: BLOOD SPECIMENOrdering Facility: [facility] Address: [address] [place] [address] Performed By: #### 1 9123-9, 2777-1, 66123-6 ####[facility] LABORATORYCLIA [id number] [address] [place] NURSING PROGon 07-21-2021 NURSING PROG Normal [facility] Phosphate SerPl-mCncon 07-21 Phosphate [Mass/Vol] 3.7 mg/dL Normal 2.7-4.8 [facility] Comment on above: Order Comment: Speci men Type: BLOOD SPECIMENOrdering Facility: [facility] Address: [address] [place] [address] Performed By: #### 1 9123-9, 2777-1, 28542-2 ####[facility] LABORATORYCLIA [id number] [place] [address] [facility] [place] THERAPY NTon 07-21-2021 THERAPY NT Normal [facility] XR CHEST 1V FRONTALon 2021 XR CHEST 1V FRONTAL Normal [facility] aPTT PPPon 07-21-2021 aPTT Coag (PPP) [Time] 53.0 s High 23.0-32.4 [facility] Comment on above: Order Comment: Speci men Type: BLOOD SPECIMENOrdering Facility: [facility] Address: [address] [place] [address] Performed By: #### 1 4979-9 ####[facility] LABORATORYCLIA [id number] [address] [place] ALLIED HEALTHon 07-20-2021 ALLIED HEALTH Normal [facility] Basic metabolic 2000 panelon 07-20-2021 Anion gap [Moles/Vol] 8 mmol/L Low 9-18 [facility] Comment on above: Order Comment: Speci men Type: BLOOD SPECIMENOrdering Facility: [facility] Address: [address] [place] [address] Performed By: #### 2 4321-2, 87493-4, 2777-1 ####[facility]PITALCLIA [id number] [place] [address] [place] Calcium [Mass/Vol] 9.7 mg/dL Normal 8.5-10.2 [facility] Comment on above: Order Comment: Speci men Type: BLOOD SPECIMENOrdering Facility: [facility] Address: [address] [place] [address] Performed By: #### 2 4321-2, 51399-8, 2777-1 ####[facility] LABORATORYCLIA [id number] [place] [address] [place] Chloride [Moles/Vol] 104 mmol/L Normal 97-105 [facility] Comment on above: Order Comment: Speci men Type: BLOOD SPECIMENOrdering Facility: [facility] Address: [address] [place] [address] Performed By: #### 2 4321-2, , 2776-05 ####[facility] LABORATORYCLIA [id number] [place] [address] [place] CO2 [Moles/Vol] 34 mmol/L High 22-30 [facility] Comment on above: Order Comment: Speci men Type: BLOOD SPECIMENOrdering Facility: [facility] Address: [address] [place] [address] Performed By: #### 2 4321-2, , 2776-05 ####[facility] LABORATORYCLIA [id number] [place], [place] [id number] [place] [address] [place] [facility] Creatinine [Mass/Vol] 0.76 mg/dL Normal 0.73-1.22 [facility] Comment on above: Order Comment: Speci men Type: BLOOD SPECIMENOrdering Facility: [facility] Address: [address] [place] [address] Performed By: #### 2 4321-2, , 2776-05 ####[facility]OSPITALCLIA [id number] [address] ESTIMATED GLOMERULAR FILTRATION RATE 97 mL/min/1.73m??? Normal >=60 [facility] Comment on above: Order Comment: Speci men Type: BLOOD SPECIMENOrdering Facility: [facility] Address: [address] [place] [address] Result Comment: Luzmaria mated Glomerular Filtration Rate [...] Performed By: #### 2 4321-2, , 2776-05 ####[facility] LABORATORYCLIA [id number] [place] [address] [place] Glucose [Mass/Vol] 123 mg/dL High 74-99 [facility] Comment on above: Order Comment: Shira feldman Type: BLOOD SPECIMENOrdering Facility: [facility] Address: [address] [place], [place] [address] Result Comment: The [place] [employer] (ADA) provides guidance for cutoff [...] Standards of Medical Care in Diabetes 2016, [place] [employer]. Diabetes Care. 2016.39(Suppl 1). Performed By: #### 2 4321-2, , 2776-05 ####[facility] LABORATORYCLIA [id number] [place] [address] [place] Potassium [Moles/Vol] 4.4 mmol/L Normal 3.7-5.1 [facility] Comment on above: Order Comment: Shira feldman Type: BLOOD SPECIMENOrdering Facility: [facility] Address: [address] [place], [place] [address] Performed By: #### 2 4321-2, , 2776-05 ####[facility] LABORATORYCLIA [id number] [place] [address] [place] Sodium [Moles/Vol] 146 mmol/L High 136-144 [facility] Comment on above: Order Comment: Shira feldman Type: BLOOD SPECIMENOrdering Facility: [facility] Address: [address] [place], [place] [address] Performed By: #### 2 4321-2, , 2776-05 ####[facility] LABORATORYCLIA [id number] [place] [address] [place] Urea nitrogen [Mass/Vol] 38 mg/dL High 9-24 [facility] Comment on above: Order Comment: Speci men Type: BLOOD SPECIMENOrdering Facility: [facility] Address: [address] [place] [address] Performed By: #### 2 4321-2, 64667-4, 2777-1 ####[facility] LABORATORYCLIA [id number] [address] [place] CASE MANAGEMon 07-20-2021 CASE MANAGEM Normal [facility] CBC W Auto Differential pane l (Bld)on 07-20-2021 Basophils (Bld) [#/Vol] 0.05 10*3/uL Normal <0.11 [facility] Comment on above: Order Comment: Speci men Type: BLOOD SPECIMENOrdering Facility: [facility] Address: [address] [place] [address] Performed By: #### 5 7021-8 ####[facility] LABORATORYCLIA [id number] [address] [place] Basophils/100 WBC (Bld) 0.5 % Normal [facility] Comment on above: Order Comment: Speci men Type: BLOOD SPECIMENOrdering Facility: [facility] Address: [address] [place] [address] Performed By: #### 5 7021-8 ####[facility] LABORATORYCLIA [id number] [address] [place] Differential cell count method Nom (Bld) Auto Normal [facility] Comment on above: Order Comment: Speci men Type: BLOOD SPECIMENOrdering Facility: [facility] Address: [address] [place] [address] Performed By: #### 5 7021-8 ####[facility] LABORATORYCLIA [id number] [place] [address] [place] Eosinophils (Bld) [#/Vol] 0.43 10*3/uL Normal <0.46 [facility] Comment on above: Order Comment: Speci men Type: BLOOD SPECIMENOrdering Facility: [facility] Address: [address] [place], [place] [address] Performed By: #### 5 7021-8 ####[facility] LABORATORYCLIA [id number] [address] [place] Eosinophils/100 WBC (Bld) 4.1 % Normal [facility] Comment on above: Order Comment: Speci men Type: BLOOD SPECIMENOrdering Facility: [facility] Address: [address] [place] [address] Performed By: #### 5 7021-8 ####[facility] LABORATORYCLIA [id number] [address] [place] Erythrocyte distribution width (RBC) [Ratio] 16.7 % High 11.5-15.0 [facility] Comment on above: Order Comment: Speci men Type: BLOOD SPECIMENOrdering Facility: [facility] Address: [address] [place] [address] Performed By: #### 5 7021-8 ####[facility] LABORATORYCLIA [id number] [address] Hematocrit (Bld) [Volume fraction] 33.0 % Low 39.0-51.0 [facility] Comment on above: Order Comment: Speci men Type: BLOOD SPECIMENOrdering Facility: [facility] Address: [address] [place] [address] Performed By: #### 5 7021-8 ####[facility] LABORATORYCLIA [id number] [address] [place] Hemoglobin (Bld) [Mass/Vol] 9.7 g/dL Low 13.0-17.0 [facility] Comment on above: Order Comment: Speci men Type: BLOOD SPECIMENOrdering Facility: [facility] Address: [address] [place] [address] Performed By: #### 5 7021-8 ####[facility] LABORATORYCLIA [id number] [address] [place] IMMATURE GRAN % 0.4 % Normal [facility] Comment on above: Order Comment: Speci men Type: BLOOD SPECIMENOrdering Facility: [facility] Address: [address] [place] [address] Performed By: #### 5 7021-8 ####[facility] LABORATORYCLIA [id number] [address] IMMATURE GRAN ABS 0.04 k/uL Normal <0.10 [facility] Comment on above: Order Comment: Speci men Type: BLOOD SPECIMENOrdering Facility: [facility] Address: [address] [place] [address] Performed By: #### 5 7021-8 ####[facility] LABORATORYCLIA [id number] [address] Lymphocytes (Bld) [#/Vol] 1.99 10*3/uL Normal 1.00-4.00 [facility] Comment on above: Order Comment: Speci men Type: BLOOD SPECIMENOrdering Facility: [facility] Address: [address] [place] [address] Performed By: #### 5 7021-8 ####[facility] LABORATORYCLIA [id number] [address] Lymphocytes/100 WBC (Bld) 18.8 % Normal [facility] Comment on above: Order Comment: Speci men Type: BLOOD SPECIMENOrdering Facility: [facility] Address: [address] [place] [address] Performed By: #### 5 7021-8 ####[facility] LABORATORYCLIA [id number] [address] MCH (RBC) [Entitic mass] 27.8 pg Normal 26.0-34.0 [facility] Comment on above: Order Comment: Speci men Type: BLOOD SPECIMENOrdering Facility: [facility] Address: [address] [place] [address] Performed By: #### 5 7021-8 ####[facility] LABORATORYCLIA [id number] [address] MCHC (RBC) [Mass/Vol] 29.4 g/dL Low 30.5-36.0 [facility] Comment on above: Order Comment: Speci men Type: BLOOD SPECIMENOrdering Facility: [facility] Address: [address] [place] [address] Performed By: #### 5 7021-8 ####[facility] LABORATORYCLIA [id number] [address] [place] MCV (RBC) [Entitic vol] 94.6 fL Normal 80.0-100.0 [facility] Comment on above: Order Comment: Speci men Type: BLOOD SPECIMENOrdering Facility: [facility] Address: [address] [place] [address] Performed By: #### 5 7021-8 ####[facility] LABORATORYCLIA [id number] [address] [place] Monocytes (Bld) [#/Vol] 0.82 10*3/uL Normal <0.87 [facility] Comment on above: Order Comment: Speci men Type: BLOOD SPECIMENOrdering Facility: [facility] Address: [address] [place] [address] Performed By: #### 5 7021-8 ####[facility] LABORATORYCLIA [id number] [address] [place] Monocytes/100 WBC (Bld) 7.8 % Normal [facility] Comment on above: Order Comment: Speci men Type: BLOOD SPECIMENOrdering Facility: [facility] Address: [address] [place] [address] Performed By: #### 5 7021-8 ####[facility] LABORATORYCLIA [id number] [address] [place] Neutrophils (Bld) [#/Vol] 7.23 10*3/uL Normal 1.45-7.50 [facility] Comment on above: Order Comment: Speci men Type: BLOOD SPECIMENOrdering Facility: [facility] Address: [address] [place] [address] Performed By: #### 5 7021-8 ####[facility]ATORYCLIA [id number] [address] Neutrophils/100 WBC (Bld) 68.4 % Normal [facility] Comment on above: Order Comment: Speci men Type: BLOOD SPECIMENOrdering Facility: [facility] Address: [address] [place] [address] Performed By: #### 5 7021-8 ####[facility] LABORATORYCLIA [id number] [address] [place] Nucleated RBC (Bld) [#/Vol] 10*3/uL Normal <0.01 [facility] Comment on above: Order Comment: Speci men Type: BLOOD SPECIMENOrdering Facility: [facility] Address: [address] [place] [address] Performed By: #### 5 7021-8 ####[facility] LABORATORYCLIA [id number] [address] Nucleated RBC/100 WBC (Bld) [Ratio] 0.0 /100 WBC Normal [facility] Comment on above: Order Comment: Speci men Type: BLOOD SPECIMENOrdering Facility: [facility] Address: [address] [place] [address] Performed By: #### 5 7021-8 ####[facility] LABORATORYCLIA [id number] [address] [place] Platelet mean volume (Bld) [Entitic vol] 10.5 fL Normal 9.0-12.7 [facility] Comment on above: Order Comment: Speci men Type: BLOOD SPECIMENOrdering Facility: [facility] Address: [address] [place] [address] Performed By: #### 5 7021-8 ####[facility] LABORATORYCLIA [id number] [address] [place] Platelets (Bld) [#/Vol] 400 10*3/uL Normal 150-400 [facility] Comment on above: Order Comment: Speci men Type: BLOOD SPECIMENOrdering Facility: [facility] Address: [address] [place] [address] Performed By: #### 5 7021-8 ####[facility] LABORATORYCLIA [id number] [address] RBC (Bld) [#/Vol] 3.49 10*6/uL Low 4.20-6.00 [facility] Comment on above: Order Comment: Speci men Type: BLOOD SPECIMENOrdering Facility: [facility] Address: [address] [place] [address] Performed By: #### 5 7021-8 ####[facility] LABORATORYCLIA [id number] [address] WBC (Bld) [#/Vol] 10.56 10*3/uL Normal 3.70-11.00 [facility] Comment on above: Order Comment: Speci men Type: BLOOD SPECIMENOrdering Facility: [facility] Address: [address] [place] [address] Performed By: #### 5 7021-8 ####[facility] LABORATORYCLIA [id number] [address] CONSULT PROGon 07-20-2021 CONSULT PROG Normal [facility] CT BRAIN WO IVCONon 07-21-[address] BRAIN WO IVCON Normal [facility] Magnesium [Mass/Vol] 2.4 mg/dL High 1.7-2.3 [facility] Comment on above: Order Comment: Speci men Type: BLOOD SPECIMENOrdering Facility: [facility] Address: [address] [place] [address] Performed By: #### 2 4321-2, 95164-3, 2777-1 ####[facility]ATORYCLIA [id number] [address] [place] NUTRITIONon 07-20-2021 NUTRITION Normal [facility] Phosphate SerPl-mCncon 07-20 Phosphate [Mass/Vol] 4.1 mg/dL Normal 2.7-4.8 [facility] Comment on above: Order Comment: Speci men Type: BLOOD SPECIMENOrdering Facility: [facility] Address: [address] [place] [address] Performed By: #### 2 4321-2, 89149-5, 2777-1 ####[facility] LABORATORYCLIA [id number] [place] [address] [place] aPTT PPPon 07-20-2021 aPTT Coag (PPP) [Time] 53.6 s High 23.0-32.4 [facility] Comment on above: Order Comment: Speci men Type: BLOOD SPECIMENOrdering Facility: [facility] Address: [address] [place] [address] Performed By: #### 1 4979-9 ####[facility] LABORATORYCLIA [id number] [address] [place] Bacteria CSF Culton 07-20-19 22 Bacteria identified Cx Nom (CSF) CULTURE, CSF: No growth 14 days GRAM STAIN: No organisms seen No Polymorphonuclear Leukocytes Rare Mononuclear cells Gram stain performed on cytospun specimen. Normal [facility] Comment on above: Performed By: #### 6 06-4 ####[facility] LABORATORYCLIA [id number] [place] [address] [place] CONSULT PROGon 07-19-2021 CONSULT PROG Normal [facility] CSF MANUAL DIFFon 07-19-2021 DIF TTL, CSF 100 cells counted Normal [facility] Comment on above: Order Comment: Speci men Type: CEREBROSPINAL FLUIDOrdering Facility: [facility] Address: [address] [place] [address] Performed By: #### L BP0916, 81284-3, [id number] ####[facility] LABORATORYCLIA [id number] [place] [address] [place] EOSIN%, CSF 1 % Normal [facility] Comment on above: Order Comment: Speci men Type: CEREBROSPINAL FLUIDOrdering Facility: [facility] Address: [address] [address] Performed By: #### L [id number], 02340-8, [id number] ####[facility]ORATORYCLIA [id number] [place] [address] [place] LYMPH%, CSF 67 % Normal 50-90 [facility] Comment on above: Order Comment: Speci men Type: CEREBROSPINAL FLUIDOrdering Facility: [facility] Address: [address] [place] [address] Performed By: #### L IY0783, 81385-2, [id number] ####[facility]ORATORYCLIA [id number] [address] [place] MACRO%, CSF 1 % High <1 [facility] Comment on above: Order Comment: Speci men Type: CEREBROSPINAL FLUIDOrdering Facility: [facility] Address: [address] [place] [address] Performed By: #### L [id number], 27425-6, [id number] ####[facility]ORATORYCLIA [id number] [place] [address] [place] MONO%, CSF 18 % Normal 10-50 [facility] Comment on above: Order Comment: Speci men Type: CEREBROSPINAL FLUIDOrdering Facility: [facility] Address: [address] [place] [address] Performed By: #### L GR2423, 25543-2, [id number] ####[facility]ORATORYCLIA [id number] [place] [address] [place] NEUT%, CSF 11 % High 0-3 [facility] Comment on above: Order Comment: Speci men Type: CEREBROSPINAL FLUIDOrdering Facility: [facility] Address: [address] [place] [address] Performed By: #### L GY2554, 72569-0, [id number] ####[facility]ORATORYCLIA [id number] [address] [place] OTHER CL%, CSF 2 % Normal [facility] Comment on above: Order Comment: Speci men Type: CEREBROSPINAL FLUIDOrdering Facility: [facility] Address: [address] [place] [address] Result Comment: Path review to follow. Performed By: #### L CC5102, 38316-1, [id number] ####[facility] LABORATORYCLIA [id number] [address] CSF PATHOLOGIST INTERP (LAB REFLEX ORDER-NO BILL)on 07-19-2021 CSF STAFF REVIEW Normal [facility] Comment on above: Order Comment: Speci men Type: CEREBROSPINAL FLUIDOrdering Facility: [facility] Address: [address] [place] [address] Performed By: #### L LG2518, 49950-0, [id number] ####[facility] LABORATORYCLIA [id number] [address] Pathologist name Reviewed by Wing Cummings MD [facility] Comment on above: Order Comment: Speci men Type: CEREBROSPINAL FLUIDOrdering Facility: [facility] Address: [address] [place] [address] Performed By: #### L ZU6697, 11877-3, [id number] ####[facility] LABORATORYCLIA [id number] [address] Cell count panel (CSF)on Clarity (CSF) Clear Normal Clear [facility] Comment on above: Order Comment: Speci men Type: CEREBROSPINAL FLUIDOrdering Facility: [facility] Address: [address] [place] [address] Performed By: #### L ML5707, 44565-3, [id number] ####[facility] LABORATORYCLIA [id number] [address] Clarity (Unsp spec) Not Indicated Normal Clear [facility] Comment on above: Order Comment: Speci men Type: CEREBROSPINAL FLUIDOrdering Facility: [facility] Address: [address] [place] [address] Performed By: #### L IZ6419, 95785-0, [id number] ####[facility]ORATORYCLIA [id number] [address] OF [facility] Color (CSF) Colorless Normal Colorless [facility] Comment on above: Order Comment: Speci men Type: CEREBROSPINAL FLUIDOrdering Facility: [facility] Address: [address] [place] [address] Performed By: #### L BW9177, 59353-4, [id number] ####[facility]ORATORYCLIA [id number] [address] [place] Color (Spun CSF) Not Indicated Normal Colorless [facility] Comment on above: Order Comment: Speci men Type: CEREBROSPINAL FLUIDOrdering Facility: [facility] Address: [address] [place] [address] Performed By: #### L DY6361, 92886-9, [id number] ####[facility] LABORATORYCLIA [id number] [address] OF [facility] CSF TUBE NUMBER [employer] Normal [facility] Comment on above: Order Comment: Speci men Type: CEREBROSPINAL FLUIDOrdering Facility: [facility] Address: [address] [place] [address] Performed By: #### L HL1870, 23676-8, [id number] ####[facility]ORATORYCLIA [id number] [address] OF [facility] RBC Manual cnt (CSF) [#/Vol] 0 cells/uL Normal 0-5 [facility] Comment on above: Order Comment: Speci men Type: CEREBROSPINAL FLUIDOrdering Facility: [facility] Address: [address] [place] [address] Performed By: #### L IS5525, 33666-7, [id number] ####[facility]ATORYCLIA [id number] [address] WBC Manual cnt (CSF) [#/Vol] 2 cells/uL Normal 0-5 [facility] Comment on above: Order Comment: Speci men Type: CEREBROSPINAL FLUIDOrdering Facility: [facility] Address: [address] [place] [address] Performed By: #### L [id number], 61538-7, [id number] ####[facility] LABORATORYCLIA [id number] [place] [address] [place] Glucose CSF-mCncon Glucose (CSF) [Mass/Vol] 69 mg/dL Normal 40-70 [facility] Comment on above: Order Comment: Speci men Type: CEREBROSPINAL FLUIDOrdering Facility: [facility] Address: [address] [place] [address] Result Comment: Lumb ar CSF glucose values of healthy patients are approximately 60% of the plasma values and must always be compared with a concurrently measured plasma value for adequate clinical interpretation.References: 1. Glucose HK (GLUC3) [package insert V 12.0 Spanish]. [employer], [place], [place]. September 2015. 2. Michelle Moore, Loki HGarfield (2015). Chapter 7: Glucose and Lactate. FGarfield Alcocer al.(eds.), Cerebrospinal Fluid in Clinical Neurology. Braxton: [employer]. Performed By: #### 2 342-4, 2880-3 ####[facility] LABORATORYCLIA [id number] [place] [address] [place] NURSING PROGon 07-19-2021 NURSING PROG Normal [facility] NURSING PROG Normal [facility] Prot CSF-mCncon 07-19-2021 Protein (CSF) [Mass/Vol] 51 mg/dL High 15-45 [facility] Comment on above: Order Comment: Speci men Type: CEREBROSPINAL FLUIDOrdering Facility: [facility] Address: [address] [place] [address] Performed By: #### 2 342-4, 2880-3 ####[facility] LABORATORYCLIA [id number] [address] [place] THERAPY NTon 07-19-2021 THERAPY NT Normal [facility] Urinalysis complete panel (U )on 07-19-2021 Bilirubin Ql (U) Negative Normal Negative [facility] Comment on above: Order Comment: Speci men Type: URINE SPECIMENOrdering Facility: [facility] Address: [address] [place] [address] Performed By: #### 2 4356-8 ####[facility] LABORATORYCLIA [id number] [address] [place] Clarity (Unsp spec) Clear Normal Clear [facility] Comment on above: Order Comment: Speci men Type: URINE SPECIMENOrdering Facility: [facility] Address: [address] [place] [address] Performed By: #### 2 4356-8 ####[facility] LABORATORYCLIA [id number] [address] [facility] Color (U) Colorless Normal yellow [facility] Comment on above: Order Comment: Speci men Type: URINE SPECIMENOrdering Facility: [facility] Address: [address] [place] [address] Performed By: #### 2 4356-8 ####[facility] LABORATORYCLIA [id number] [address] [place] Glucose Test strip (U) [Mass/Vol] Negative Normal Negative [facility] Comment on above: Order Comment: Speci men Type: URINE SPECIMENOrdering Facility: [facility] Address: [address] [place] [address] Performed By: #### 2 4356-8 ####[facility] LABORATORYCLIA [id number] [address] Hemoglobin Ql (U) Trace Abnormal Negative [facility] Comment on above: Order Comment: Speci men Type: URINE SPECIMENOrdering Facility: [facility] Address: [address] [place] [address] Performed By: #### 2 4356-8 ####[facility] LABORATORYCLIA [id number] [address] [place] Hyaline casts (Urine sed) [#/Area] 1-3 /LPF Abnormal 0 /LPF [facility] Comment on above: Order Comment: Speci men Type: URINE SPECIMENOrdering Facility: [facility] Address: [address] [place] [address] Performed By: #### 2 4356-8 ####[facility] LABORATORYCLIA [id number] [address] OF [facility] Ketones Ql (U) Negative Normal Negative [facility] Comment on above: Order Comment: Speci men Type: URINE SPECIMENOrdering Facility: [facility] Address: [address] [place] [address] Performed By: #### 2 4356-8 ####[facility]ORATORYCLIA [id number] [address] Leukocyte esterase Test strip Ql (U) Negative Normal Negative [facility] Comment on above: Order Comment: Speci men Type: URINE SPECIMENOrdering Facility: [facility] Address: [address] [place] [address] Performed By: #### 2 4356-8 ####[facility] LABORATORYCLIA [id number] [address] STATES OF [facility] Nitrite Ql (U) Negative Normal Negative [facility] Comment on above: Order Comment: Speci men Type: URINE SPECIMENOrdering Facility: [facility] Address: [address] [place] [address] Performed By: #### 2 4356-8 ####[facility]ORATORYCLIA [id number] [address] [place] pH (U) 7.0 [pH] Normal 5.0-8.0 [facility] Comment on above: Order Comment: Speci men Type: URINE SPECIMENOrdering Facility: [facility] Address: [address] [place] [address] Performed By: #### 2 4356-8 ####[facility]ORYCLIA [id number] [address] [place] Protein (U) [Mass/Vol] Negative Normal Negative [facility] Comment on above: Order Comment: Speci men Type: URINE SPECIMENOrdering Facility: [facility] Address: [address] [place] [address] Performed By: #### 2 4356-8 ####[facility]ORATORYCLIA [id number] [address] RBC LM.HPF (Urine sed) [#/Area] 6-10 /HPF Abnormal 0-3 /HPF [facility] Comment on above: Order Comment: Speci men Type: URINE SPECIMENOrdering Facility: [facility] Address: [address] [place] [address] Performed By: #### 2 4356-8 ####[facility] LABORATORYCLIA [id number] [address] Specific gravity (U) [Rel density] 1.008 Normal 1.005-1.030 [facility] Comment on above: Order Comment: Speci men Type: URINE SPECIMENOrdering Facility: [facility] Address: [address] [place] [address] Performed By: #### 2 4356-8 ####[facility]ORATORYCLIA [id number] [address] Urobilinogen Ql (U) Normal Normal Negative [facility] Comment on above: Order Comment: Speci men Type: URINE SPECIMENOrdering Facility: [facility] Address: [address] [place] [address] Performed By: #### 2 4356-8 ####[facility]ORATORYCLIA [id number] [address] WBC LM.HPF (Urine sed) [#/Area] 0-5 /HPF Normal 0-5 /HPF [facility] Comment on above: Order Comment: Speci men Type: URINE SPECIMENOrdering Facility: [facility] Address: [address] [place] [address] Performed By: #### 2 4356-8 ####[facility]ORATORYCLIA [id number] [address] Vancomycin random [Mass/Vol] on 07-19-2021 Vancomycin [Mass/Vol] 13.9 ug/mL Normal 10.0-20.0 [facility] Comment on above: Order Comment: Speci men Type: BLOOD SPECIMENOrdering Facility: [facility] Address: [address] [place] [address] Result Comment: Refe rence ranges and high/low indicator flags are provided as general guidelines only. The treating physician must determine appropriate target levels/dosing based on the specific clinical situation. Performed By: #### 4 091-5 ####[facility]ORATORYCLIA [id number] [address] [place] aPTT PPPon 07-19-2021 aPTT Coag (PPP) [Time] 53.9 s High 23.0-32.4 [facility] Comment on above: Order Comment: Speci men Type: BLOOD SPECIMENOrdering Facility: [facility] Address: [address] [place] [address] Performed By: #### 1 4979-9 ####[facility]ORATORYCLIA [id number] [place] [address] [place] Basic metabolic 2000 panelon 07-18-2021 Anion gap [Moles/Vol] 6 mmol/L Low 9-18 [facility] Comment on above: Order Comment: Speci men Type: BLOOD SPECIMENOrdering Facility: [facility] Address: [address] [place] [address] Performed By: #### 2 4321-2, , 2777-1 ####[facility]ORATORYCLIA [id number] [place] [address] [place] Calcium [Mass/Vol] 9.4 mg/dL Normal 8.5-10.2 [facility] Comment on above: Order Comment: Speci men Type: BLOOD SPECIMENOrdering Facility: [facility] Address: [address] [place] [address] Performed By: #### 2 4321-2, , 2777-1 ####[facility]ORATORYCLIA [id number] [address] [place] Chloride [Moles/Vol] 103 mmol/L Normal 97-105 [facility] Comment on above: Order Comment: Speci francia Type: BLOOD SPECIMENOrdering Facility: [facility] Address: [address] [place] [address] Performed By: #### 2 4321-2, 79945-3, 277-1 ####[facility] LABORATORYCLIA [id number] [address] [id number] [place] CO2 [Moles/Vol] 34 mmol/L High 22-30 [facility] Comment on above: Order Comment: Speci men Type: BLOOD SPECIMENOrdering Facility: [facility] Address: [address] [place] [address] Performed By: #### 2 4321-2, , 2776-05 ####[facility] [id number] [address] Creatinine [Mass/Vol] 0.75 mg/dL Normal 0.73-1.22 [facility] Comment on above: Order Comment: Speci men Type: BLOOD SPECIMENOrdering Facility: [facility] Address: [address] [place] [address] Performed By: #### 2 4321-2, , 2777 ####[facility]ORATORYCLIA [id number] [address] ESTIMATED GLOMERULAR FILTRATION RATE 98 mL/min/1.73m??? Normal >=60 [facility] Comment on above: Order Comment: Speci men Type: BLOOD SPECIMENOrdering Facility: [facility] Address: [address] [place] [address] Result Comment: Luzmaria mated Glomerular Filtration Rate [...] Performed By: #### 2 4321-2, , 2776-05 ####[facility]ITALCLIA [id number] [place] [address] [place] Glucose [Mass/Vol] 125 mg/dL High 74-99 [facility] Comment on above: Order Comment: Shira feldman Type: BLOOD SPECIMENOrdering Facility: [facility] Address: [address] [place], [place] [phone] Result Comment: The [place] Diabetes [employer] (ADA) provides guidance for cutoff [...] Standards of Medical Care in Diabetes 2016, [place] [employer]. Diabetes Care. 2016.39(Suppl 1). Performed By: #### 2 4321-2, , 2776-05 ####[facility]PITALCLIA [id number] [place] [address] [place] Potassium [Moles/Vol] 4.4 mmol/L Normal 3.7-5.1 [facility] Comment on above: Order Comment: Shira feldman Type: BLOOD SPECIMENOrdering Facility: [facility] Address: [address] [id number] Performed By: #### 2 4321-2, , 2776-05 ####[facility]ORATORYCLIA [id number] [place] [address] [place] Sodium [Moles/Vol] 143 mmol/L Normal 136-144 [facility] Comment on above: Order Comment: Shira feldman Type: BLOOD SPECIMENOrdering Facility: [facility] Address: [address] [address] Performed By: #### 2 4321-2, 05253-6, 2777-1 ####[facility] LABORATORYCLIA [id number] [place] [address] [place] Urea nitrogen [Mass/Vol] 33 mg/dL High 9-24 [facility] Comment on above: Order Comment: Speci men Type: BLOOD SPECIMENOrdering Facility: [facility] Address: [address] [place] [address] Performed By: #### 2 4321-2, , 2776-05 ####[facility] LABORATORYCLIA [id number] [address] [place] CASE MANAGEMon 07-18-2021 CASE MANAGEM Normal [facility] CBC W Auto Differential pane l (Bld)on 07-18-2021 Basophils (Bld) [#/Vol] 0.05 10*3/uL Normal <0.11 [facility] Comment on above: Order Comment: Speci men Type: BLOOD SPECIMENOrdering Facility: [facility] Address: [address] [place] [address] Performed By: #### 5 7021-8 ####[facility] LABORATORYCLIA [id number] [address] [place] Basophils/100 WBC (Bld) 0.5 % Normal [facility] Comment on above: Order Comment: Speci men Type: BLOOD SPECIMENOrdering Facility: [facility] Address: [address] [place] [address] Performed By: #### 5 7021-8 ####[facility] LABORATORYCLIA [id number] [address] [facility] Differential cell count method Nom (Bld) Auto Normal [facility] Comment on above: Order Comment: Speci men Type: BLOOD SPECIMENOrdering Facility: [facility] Address: [address] [place] [address] Performed By: #### 5 7021-8 ####[facility]ORATORYCLIA [id number] [address] [place] Eosinophils (Bld) [#/Vol] 0.44 10*3/uL Normal <0.46 [facility] Comment on above: Order Comment: Speci men Type: BLOOD SPECIMENOrdering Facility: [facility] Address: [address] [place] [address] Performed By: #### 5 7021-8 ####[facility] LABORATORYCLIA [id number] [address] Eosinophils/100 WBC (Bld) 4.3 % Normal [facility] Comment on above: Order Comment: Speci men Type: BLOOD SPECIMENOrdering Facility: [facility] Address: [address] [place] [address] Performed By: #### 5 7021-8 ####[facility] LABORATORYCLIA [id number] [address] Erythrocyte distribution width (RBC) [Ratio] 16.6 % High 11.5-15.0 [facility] Comment on above: Order Comment: Speci men Type: BLOOD SPECIMENOrdering Facility: [facility] Address: [address] [place] [address] Performed By: #### 5 7021-8 ####[facility] LABORATORYCLIA [id number] [address] [place] Hematocrit (Bld) [Volume fraction] 32.2 % Low 39.0-51.0 [facility] Comment on above: Order Comment: Speci men Type: BLOOD SPECIMENOrdering Facility: [facility] Address: [address] [place] [address] Performed By: #### 5 7021-8 ####[facility] LABORATORYCLIA [id number] [address] Hemoglobin (Bld) [Mass/Vol] 9.5 g/dL Low 13.0-17.0 [facility] Comment on above: Order Comment: Speci men Type: BLOOD SPECIMENOrdering Facility: [facility] Address: [address] [place] [address] Performed By: #### 5 7021-8 ####[facility] LABORATORYCLIA [id number] [address] IMMATURE GRAN % 0.4 % Normal [facility] Comment on above: Order Comment: Speci men Type: BLOOD SPECIMENOrdering Facility: [facility] Address: [address] [place] [address] Performed By: #### 5 7021-8 ####[facility] LABORATORYCLIA [id number] [address] IMMATURE GRAN ABS 0.04 k/uL Normal <0.10 [facility] Comment on above: Order Comment: Speci men Type: BLOOD SPECIMENOrdering Facility: [facility] Address: [address] [place] [address] Performed By: #### 5 7021-8 ####[facility] LABORATORYCLIA [id number] [address] Lymphocytes (Bld) [#/Vol] 1.71 10*3/uL Normal 1.00-4.00 [facility] Comment on above: Order Comment: Speci men Type: BLOOD SPECIMENOrdering Facility: [facility] Address: [address] [place] [address] Performed By: #### 5 7021-8 ####[facility] LABORATORYCLIA [id number] [address] Lymphocytes/100 WBC (Bld) 16.9 % Normal [facility] Comment on above: Order Comment: Speci men Type: BLOOD SPECIMENOrdering Facility: [facility] Address: [address] [place] [address] Performed By: #### 5 7021-8 ####[facility]ORATORYCLIA [id number] [address] [place] MCH (RBC) [Entitic mass] 27.9 pg Normal 26.0-34.0 [facility] Comment on above: Order Comment: Speci men Type: BLOOD SPECIMENOrdering Facility: [facility] Address: [address] [place] [address] Performed By: #### 5 7021-8 ####[facility] LABORATORYCLIA [id number] [address] MCHC (RBC) [Mass/Vol] 29.5 g/dL Low 30.5-36.0 [facility] Comment on above: Order Comment: Speci men Type: BLOOD SPECIMENOrdering Facility: [facility] Address: [address] [place] [address] Performed By: #### 5 7021-8 ####[facility] LABORATORYCLIA [id number] [address] MCV (RBC) [Entitic vol] 94.7 fL Normal 80.0-100.0 [facility] Comment on above: Order Comment: Speci men Type: BLOOD SPECIMENOrdering Facility: [facility] Address: [address] [place] [address] Performed By: #### 5 7021-8 ####[facility] LABORATORYCLIA [id number] [address] Monocytes (Bld) [#/Vol] 0.69 10*3/uL Normal <0.87 [facility] Comment on above: Order Comment: Speci men Type: BLOOD SPECIMENOrdering Facility: [facility] Address: [address] [place] [address] Performed By: #### 5 7021-8 ####[facility] LABORATORYCLIA [id number] [address] Monocytes/100 WBC (Bld) 6.8 % Normal [facility] Comment on above: Order Comment: Speci men Type: BLOOD SPECIMENOrdering Facility: [facility] Address: [address] [place] [address] Performed By: #### 5 7021-8 ####[facility] LABORATORYCLIA [id number] [place] [address] [place] Neutrophils (Bld) [#/Vol] 7.19 10*3/uL Normal 1.45-7.50 [facility] Comment on above: Order Comment: Speci men Type: BLOOD SPECIMENOrdering Facility: [facility] Address: [address] [place] [address] Performed By: #### 5 7021-8 ####[facility] LABORATORYCLIA [id number] [address] [place] Neutrophils/100 WBC (Bld) 71.1 % Normal [facility] Comment on above: Order Comment: Speci men Type: BLOOD SPECIMENOrdering Facility: [facility] Address: [address] [place] [address] Performed By: #### 5 7021-8 ####[facility] LABORATORYCLIA [id number] [address] [place] Nucleated RBC (Bld) [#/Vol] 10*3/uL Normal <0.01 [facility] Comment on above: Order Comment: Speci men Type: BLOOD SPECIMENOrdering Facility: [facility] Address: [address] [place] [address] Performed By: #### 5 7021-8 ####[facility] LABORATORYCLIA [id number] [address] [place] Nucleated RBC/100 WBC (Bld) [Ratio] 0.0 /100 WBC Normal [facility] Comment on above: Order Comment: Speci men Type: BLOOD SPECIMENOrdering Facility: [facility] Address: [address] [place] [address] Performed By: #### 5 7021-8 ####[facility] LABORATORYCLIA [id number] [address] [place] Platelet mean volume (Bld) [Entitic vol] 10.3 fL Normal 9.0-12.7 [facility] Comment on above: Order Comment: Speci men Type: BLOOD SPECIMENOrdering Facility: [facility] Address: [address] [place] [address] Performed By: #### 5 7021-8 ####[facility] LABORATORYCLIA [id number] [address] OF [facility] Platelets (Bld) [#/Vol] 403 10*3/uL High 150-400 [facility] Comment on above: Order Comment: Speci men Type: BLOOD SPECIMENOrdering Facility: [facility] Address: [address] [place] [address] Performed By: #### 5 7021-8 ####[facility] LABORATORYCLIA [id number] [address] STATES OF [facility] RBC (Bld) [#/Vol] 3.40 10*6/uL Low 4.20-6.00 [facility] Comment on above: Order Comment: Speci men Type: BLOOD SPECIMENOrdering Facility: [facility] Address: [address] [place] [address] Performed By: #### 5 7021-8 ####[facility] LABORATORYCLIA [id number] [address] OF [facility] WBC (Bld) [#/Vol] 10.12 10*3/uL Normal 3.70-11.00 [facility] Comment on above: Order Comment: Speci men Type: BLOOD SPECIMENOrdering Facility: [facility] Address: [address] [place] [address] Performed By: #### 5 7021-8 ####[facility] LABORATORYCLIA [id number] [address] OF [facility] Magnesium SerPl-mCncon 07-18 Magnesium [Mass/Vol] 2.4 mg/dL High 1.7-2.3 [facility] Comment on above: Order Comment: Speci men Type: BLOOD SPECIMENOrdering Facility: [facility] Address: [address] [place] [address] Performed By: #### 2 4321-2, 03893-0, 2777-1 ####[facility] LABORATORYCLIA [id number] [address] [place] NURSING PROGon 07-18-2021 NURSING PROG Normal [facility] NURSING PROG Normal [facility] Phosphate SerPl-mCncon 07-18 Phosphate [Mass/Vol] 3.9 mg/dL Normal 2.7-4.8 [facility] Comment on above: Order Comment: Speci men Type: BLOOD SPECIMENOrdering Facility: [facility] Address: [address] [place] [address] Performed By: #### 2 4321-2, 09859-7, 2777-1 ####[facility] LABORATORYCLIA [id number] [address] THERAPY NTon 07-18-2021 THERAPY NT Normal [facility] aPTT PPPon 07-18-2021 aPTT Coag (PPP) [Time] 52.3 s High 23.0-32.4 [facility] Comment on above: Order Comment: Speci men Type: BLOOD SPECIMENOrdering Facility: [facility] Address: [address] [place] [address] Performed By: #### 1 4979-9 ####[facility] LABORATORYCLIA [id number] [address] CBC W Auto Differential pane l (Bld)on 07-17-2021 Basophils (Bld) [#/Vol] 0.05 10*3/uL Normal <0.11 [facility] Comment on above: Order Comment: Speci men Type: BLOOD SPECIMENOrdering Facility: [facility] Address: [address] [place] [address] Performed By: #### 5 7021-8 ####[facility] LABORATORYCLIA [id number] [address] Basophils/100 WBC (Bld) 0.5 % Normal [facility] Comment on above: Order Comment: Speci men Type: BLOOD SPECIMENOrdering Facility: [facility] Address: [address] [place] [address] Performed By: #### 5 7021-8 ####[facility] LABORATORYCLIA [id number] [address] Differential cell count method Nom (Bld) Auto Normal [facility] Comment on above: Order Comment: Speci men Type: BLOOD SPECIMENOrdering Facility: [facility] Address: [address] [place] [address] Performed By: #### 5 7021-8 ####[facility] LABORATORYCLIA [id number] [address] [place] Eosinophils (Bld) [#/Vol] 0.32 10*3/uL Normal <0.46 [facility] Comment on above: Order Comment: Speci men Type: BLOOD SPECIMENOrdering Facility: [facility] Address: [address] [place] [address] Performed By: #### 5 7021-8 ####[facility] LABORATORYCLIA [id number] [address] Eosinophils/100 WBC (Bld) 3.4 % Normal [facility] Comment on above: Order Comment: Speci men Type: BLOOD SPECIMENOrdering Facility: [facility] Address: [address] [place] [address] Performed By: #### 5 7021-8 ####[facility] LABORATORYCLIA [id number] [address] [place] Erythrocyte distribution width (RBC) [Ratio] 16.6 % High 11.5-15.0 [facility] Comment on above: Order Comment: Speci men Type: BLOOD SPECIMENOrdering Facility: [facility] Address: [address] [place] [address] Performed By: #### 5 7021-8 ####[facility] LABORATORYCLIA [id number] [address] Hematocrit (Bld) [Volume fraction] 30.7 % Low 39.0-51.0 [facility] Comment on above: Order Comment: Speci men Type: BLOOD SPECIMENOrdering Facility: [facility] Address: [address] [address] Performed By: #### 5 7021-8 ####[facility]ORATORYCLIA [id number] [address] [place] Hemoglobin (Bld) [Mass/Vol] 9.0 g/dL Low 13.0-17.0 [facility] Comment on above: Order Comment: Speci men Type: BLOOD SPECIMENOrdering Facility: [facility] Address: [address] [place] [address] Performed By: #### 5 7021-8 ####[facility] LABORATORYCLIA [id number] [address] IMMATURE GRAN % 0.6 % Normal [facility] Comment on above: Order Comment: Speci men Type: BLOOD SPECIMENOrdering Facility: [facility] Address: [address] [place] [address] Performed By: #### 5 7021-8 ####[facility] LABORATORYCLIA [id number] [address] IMMATURE GRAN ABS 0.06 k/uL Normal <0.10 [facility] Comment on above: Order Comment: Speci men Type: BLOOD SPECIMENOrdering Facility: [facility] Address: [address] [place] [address] Performed By: #### 5 7021-8 ####[facility] LABORATORYCLIA [id number] [address] [place] Lymphocytes (Bld) [#/Vol] 1.61 10*3/uL Normal 1.00-4.00 [facility] Comment on above: Order Comment: Speci men Type: BLOOD SPECIMENOrdering Facility: [facility] Address: [address] [place] [address] Performed By: #### 5 7021-8 ####[facility]ORATORYCLIA [id number] [address] [place] Lymphocytes/100 WBC (Bld) 17.3 % Normal [facility] Comment on above: Order Comment: Speci men Type: BLOOD SPECIMENOrdering Facility: [facility] Address: [address] [place] [address] Performed By: #### 5 7021-8 ####[facility] LABORATORYCLIA [id number] [address] MCH (RBC) [Entitic mass] 26.9 pg Normal 26.0-34.0 [facility] Comment on above: Order Comment: Speci men Type: BLOOD SPECIMENOrdering Facility: [facility] Address: [address] [place] [address] Performed By: #### 5 7021-8 ####[facility] LABORATORYCLIA [id number] [address] MCHC (RBC) [Mass/Vol] 29.3 g/dL Low 30.5-36.0 [facility] Comment on above: Order Comment: Speci men Type: BLOOD SPECIMENOrdering Facility: [facility] Address: [address] [place] [address] Performed By: #### 5 7021-8 ####[facility] LABORATORYCLIA [id number] [address] MCV (RBC) [Entitic vol] 91.9 fL Normal 80.0-100.0 [facility] Comment on above: Order Comment: Speci men Type: BLOOD SPECIMENOrdering Facility: [facility] Address: [address] [place] [address] Performed By: #### 5 7021-8 ####[facility] LABORATORYCLIA [id number] [address] Monocytes (Bld) [#/Vol] 0.61 10*3/uL Normal <0.87 [facility] Comment on above: Order Comment: Speci men Type: BLOOD SPECIMENOrdering Facility: [facility] Address: [address] [place] [address] Performed By: #### 5 7021-8 ####[facility] LABORATORYCLIA [id number] [address] [place] Monocytes/100 WBC (Bld) 6.6 % Normal [facility] Comment on above: Order Comment: Speci men Type: BLOOD SPECIMENOrdering Facility: [facility] Address: [address] [place] [address] Performed By: #### 5 7021-8 ####[facility] LABORATORYCLIA [id number] [place] [address] [place] Neutrophils (Bld) [#/Vol] 6.64 10*3/uL Normal 1.45-7.50 [facility] Comment on above: Order Comment: Speci men Type: BLOOD SPECIMENOrdering Facility: [facility] Address: [address] [place] [address] Performed By: #### 5 7021-8 ####[facility] LABORATORYCLIA [id number] [address] [place] Neutrophils/100 WBC (Bld) 71.6 % Normal [facility] Comment on above: Order Comment: Speci men Type: BLOOD SPECIMENOrdering Facility: [facility] Address: [address] [place] [address] Performed By: #### 5 7021-8 ####[facility] LABORATORYCLIA [id number] [place] [address] [place] Nucleated RBC (Bld) [#/Vol] 10*3/uL Normal <0.01 [facility] Comment on above: Order Comment: Speci men Type: BLOOD SPECIMENOrdering Facility: [facility] Address: [address] [place] [address] Performed By: #### 5 7021-8 ####[facility]ATORYCLIA [id number] [address] [place] Nucleated RBC/100 WBC (Bld) [Ratio] 0.0 /100 WBC Normal [facility] Comment on above: Order Comment: Speci men Type: BLOOD SPECIMENOrdering Facility: [facility] Address: [address] [place] [address] Performed By: #### 5 7021-8 ####[facility] LABORATORYCLIA [id number] [address] [place] Platelet mean volume (Bld) [Entitic vol] 10.1 fL Normal 9.0-12.7 [facility] Comment on above: Order Comment: Speci men Type: BLOOD SPECIMENOrdering Facility: [facility] Address: [address] [place] [address] Performed By: #### 5 7021-8 ####[facility] LABORATORYCLIA [id number] [place] [address] [place] Platelets (Bld) [#/Vol] 387 10*3/uL Normal 150-400 [facility] Comment on above: Order Comment: Speci men Type: BLOOD SPECIMENOrdering Facility: [facility] Address: [address] [place] [address] Performed By: #### 5 7021-8 ####[facility] LABORATORYCLIA [id number] [place] [address] [place] RBC (Bld) [#/Vol] 3.34 10*6/uL Low 4.20-6.00 [facility] Comment on above: Order Comment: Speci men Type: BLOOD SPECIMENOrdering Facility: [facility] Address: [address] [place] [address] Performed By: #### 5 7021-8 ####[facility] LABORATORYCLIA [id number] [place] [address] [place] WBC (Bld) [#/Vol] 9.29 10*3/uL Normal 3.70-11.00 [facility] Comment on above: Order Comment: Speci men Type: BLOOD SPECIMENOrdering Facility: [facility] Address: [address] [place], [place] [address] Performed By: #### 5 7021-8 ####[facility] LABORATORYCLIA [id number] [address] [place] CONSULT PROGon 07-17-2021 CONSULT PROG Normal [facility] Magnesium SerPl-ncon 07-17 Magnesium [Mass/Vol] 2.3 mg/dL Normal 1.7-2.3 [facility] Comment on above: Order Comment: Speci men Type: BLOOD SPECIMENOrdering Facility: [facility] Address: [address] [place] [address] Performed By: #### 2 777-1, ####[facility] LABORATORYCLIA [id number] [address] NURSING PROGon 07-17-2021 NURSING PROG Normal [facility] NURSING PROG Normal [facility] NURSING PROG Normal [facility] Phosphate SerPl-mCncon 07-17 Phosphate [Mass/Vol] 3.6 mg/dL Normal 2.7-4.8 [facility] Comment on above: Order Comment: Speci men Type: BLOOD SPECIMENOrdering Facility: [facility] Address: [address] [place] [address] Performed By: #### 2 777-1, ####[facility] LABORATORYCLIA [id number] [address] aPTT PPPon 07-17-2021 aPTT Coag (PPP) [Time] 57.2 s High 23.0-32.4 [facility] Comment on above: Order Comment: Speci men Type: BLOOD SPECIMENOrdering Facility: [facility] Address: [address] [place] [address] Performed By: #### 1 4979-9 ####[facility] LABORATORYCLIA [id number] [place] [address] [place] Basic metabolic 2000 panelon 07-16-2021 Anion gap [Moles/Vol] 5 mmol/L Low 9-18 [facility] Comment on above: Order Comment: Speci men Type: BLOOD SPECIMENOrdering Facility: [facility] Address: [address] [place] [address] Performed By: #### 2 777-1, , ####[facility] LABORATORYCLIA [id number] [place] [address] [place] Calcium [Mass/Vol] 9.1 mg/dL Normal 8.5-10.2 [facility] Comment on above: Order Comment: Speci men Type: BLOOD SPECIMENOrdering Facility: [facility] Address: [address] [place] [address] Performed By: #### 2 777-1, , ####[facility] LABORATORYCLIA [id number] [place] [address] [place] Chloride [Moles/Vol] 101 mmol/L Normal 97-105 [facility] Comment on above: Order Comment: Speci men Type: BLOOD SPECIMENOrdering Facility: [facility] Address: [address] [place] [address] Performed By: #### 2 777-1, , ####[facility] LABORATORYCLIA [id number] [place] [address] [place] CO2 [Moles/Vol] 35 mmol/L High 22-30 [facility] Comment on above: Order Comment: Speci men Type: BLOOD SPECIMENOrdering Facility: [facility] Address: [address] [place] [address] Performed By: #### 2 777-1, , ####[facility] LABORATORYCLIA [id number] [place] [address] [place] Creatinine [Mass/Vol] 0.73 mg/dL Normal 0.73-1.22 [facility] Comment on above: Order Comment: Speci men Type: BLOOD SPECIMENOrdering Facility: [facility] Address: [address] [place] [address] Performed By: #### 2 777-1, , ####[facility] LABORATORYCLIA [id number] [address] [place] ESTIMATED GLOMERULAR FILTRATION RATE 98 mL/min/1.73m??? Normal >=60 [facility] Comment on above: Order Comment: Shira feldman Type: BLOOD SPECIMENOrdering Facility: [facility] Address: [address] [place] [address] Result Comment: Luzmaria mated Glomerular Filtration Rate [...] actual GFR. Performed By: #### 2 777-1, 19676-3, ####[facility]PITALCLIA [id number] [place] [address] [place] Glucose [Mass/Vol] 133 mg/dL High 74-99 [facility] Comment on above: Order Comment: Shira feldman Type: BLOOD SPECIMENOrdering Facility: [facility] Address: [address] [place] [address] Result Comment: The [place] Diabetes Association (ADA) provides guidance for cutoff [...] Standards of Medical Care in Diabetes 2016, [place] [employer]. Diabetes Care. 2016.39(Suppl 1). Performed By: #### 2 777-1, 44811-2, 93268-5 ####[facility] LABORATORYCLIA [id number] [place] [id number] [place] Potassium [Moles/Vol] 4.2 mmol/L Normal 3.7-5.1 [facility] Comment on above: Order Comment: Speci men Type: BLOOD SPECIMENOrdering Facility: [facility] Address: [address] [place] [address] Performed By: #### 2 777-1, 61366-8, 56194-1 ####[facility] LABORATORYCLIA [id number] [address] STATES OF [facility] Sodium [Moles/Vol] 141 mmol/L Normal 136-144 [facility] Comment on above: Order Comment: Speci men Type: BLOOD SPECIMENOrdering Facility: [facility] Address: [address] [place] [address] Performed By: #### 2 777-1, 71529-1, ####[facility] LABORATORYCLIA [id number] [address] [place] Urea nitrogen [Mass/Vol] 21 mg/dL Normal 9-24 [facility] Comment on above: Order Comment: Speci men Type: BLOOD SPECIMENOrdering Facility: [facility] Address: [address] [place] [address] Performed By: #### 2 777-1, 27423-7, ####[facility] LABORATORYCLIA [id number] [address] [place] CBC W Auto Differential pane l (Bld)on 07-16-2021 Basophils (Bld) [#/Vol] 0.06 10*3/uL Normal <0.11 [facility] Comment on above: Order Comment: Speci men Type: BLOOD SPECIMENOrdering Facility: [facility] Address: [address] [place] [address] Performed By: #### 5 7021-8 ####[facility] LABORATORYCLIA [id number] [address] Basophils/100 WBC (Bld) 0.7 % Normal [facility] Comment on above: Order Comment: Speci men Type: BLOOD SPECIMENOrdering Facility: [facility] Address: [address] [place] [address] Performed By: #### 5 7021-8 ####[facility] LABORATORYCLIA [id number] [address] Differential cell count method Nom (Bld) Auto Normal [facility] Comment on above: Order Comment: Speci men Type: BLOOD SPECIMENOrdering Facility: [facility] Address: [address] [place] [address] Performed By: #### 5 7021-8 ####[facility]ORATORYCLIA [id number] [address] Eosinophils (Bld) [#/Vol] 0.35 10*3/uL Normal <0.46 [facility] Comment on above: Order Comment: Speci men Type: BLOOD SPECIMENOrdering Facility: [facility] Address: [address] [place] [address] Performed By: #### 5 7021-8 ####[facility] LABORATORYCLIA [id number] [address] Eosinophils/100 WBC (Bld) 3.9 % Normal [facility] Comment on above: Order Comment: Speci men Type: BLOOD SPECIMENOrdering Facility: [facility] Address: [address] [place] [address] Performed By: #### 5 7021-8 ####[facility] LABORATORYCLIA [id number] [address] Erythrocyte distribution width (RBC) [Ratio] 16.5 % High 11.5-15.0 [facility] Comment on above: Order Comment: Speci men Type: BLOOD SPECIMENOrdering Facility: [facility] Address: [address] [place] [address] Performed By: #### 5 7021-8 ####[facility] LABORATORYCLIA [id number] [address] Hematocrit (Bld) [Volume fraction] 30.9 % Low 39.0-51.0 [facility] Comment on above: Order Comment: Speci men Type: BLOOD SPECIMENOrdering Facility: [facility] Address: [address] [place] [address] Performed By: #### 5 7021-8 ####[facility]ORYCLIA [id number] [address] [place] Hemoglobin (Bld) [Mass/Vol] 9.1 g/dL Low 13.0-17.0 [facility] Comment on above: Order Comment: Speci men Type: BLOOD SPECIMENOrdering Facility: [facility] Address: [address] [place] [address] Performed By: #### 5 7021-8 ####[facility] LABORATORYCLIA [id number] [address] IMMATURE GRAN % 0.4 % Normal [facility] Comment on above: Order Comment: Speci men Type: BLOOD SPECIMENOrdering Facility: [facility] Address: [address] [place] [address] Performed By: #### 5 7021-8 ####[facility] LABORATORYCLIA [id number] [address] IMMATURE GRAN ABS 0.04 k/uL Normal <0.10 [facility] Comment on above: Order Comment: Speci men Type: BLOOD SPECIMENOrdering Facility: [facility] Address: [address] [place] [address] Performed By: #### 5 7021-8 ####[facility] LABORATORYCLIA [id number] [address] [place] Lymphocytes (Bld) [#/Vol] 1.35 10*3/uL Normal 1.00-4.00 [facility] Comment on above: Order Comment: Speci men Type: BLOOD SPECIMENOrdering Facility: [facility] Address: [address] [place] [address] Performed By: #### 5 7021-8 ####[facility]ORATORYCLIA [id number] [address] Lymphocytes/100 WBC (Bld) 15.0 % Normal [facility] Comment on above: Order Comment: Speci men Type: BLOOD SPECIMENOrdering Facility: [facility] Address: [address] [place] [address] Performed By: #### 5 7021-8 ####[facility] LABORATORYCLIA [id number] [address] MCH (RBC) [Entitic mass] 27.1 pg Normal 26.0-34.0 [facility] Comment on above: Order Comment: Speci men Type: BLOOD SPECIMENOrdering Facility: [facility] Address: [address] [place] [address] Performed By: #### 5 7021-8 ####[facility] LABORATORYCLIA [id number] [address] [facility] MCHC (RBC) [Mass/Vol] 29.4 g/dL Low 30.5-36.0 [facility] Comment on above: Order Comment: Speci men Type: BLOOD SPECIMENOrdering Facility: [facility] Address: [address] [place] [address] Performed By: #### 5 7021-8 ####[facility] LABORATORYCLIA [id number] [address] MCV (RBC) [Entitic vol] 92.0 fL Normal 80.0-100.0 [facility] Comment on above: Order Comment: Speci men Type: BLOOD SPECIMENOrdering Facility: [facility] Address: [address] [place] [address] Performed By: #### 5 7021-8 ####[facility] LABORATORYCLIA [id number] [address] Monocytes (Bld) [#/Vol] 0.53 10*3/uL Normal <0.87 [facility] Comment on above: Order Comment: Speci men Type: BLOOD SPECIMENOrdering Facility: [facility] Address: [address] [place] [address] Performed By: #### 5 7021-8 ####[facility] LABORATORYCLIA [id number] [address] [place] Monocytes/100 WBC (Bld) 5.9 % Normal [facility] Comment on above: Order Comment: Speci men Type: BLOOD SPECIMENOrdering Facility: [facility] Address: [address] [place] [address] Performed By: #### 5 7021-8 ####[facility] LABORATORYCLIA [id number] [place] [address] [place] Neutrophils (Bld) [#/Vol] 6.67 10*3/uL Normal 1.45-7.50 [facility] Comment on above: Order Comment: Speci men Type: BLOOD SPECIMENOrdering Facility: [facility] Address: [address] [place] [address] Performed By: #### 5 7021-8 ####[facility] LABORATORYCLIA [id number] [address] [place] Neutrophils/100 WBC (Bld) 74.1 % Normal [facility] Comment on above: Order Comment: Speci men Type: BLOOD SPECIMENOrdering Facility: [facility] Address: [address] [place] [address] Performed By: #### 5 7021-8 ####[facility] LABORATORYCLIA [id number] [place] [address] [place] Nucleated RBC (Bld) [#/Vol] 10*3/uL Normal <0.01 [facility] Comment on above: Order Comment: Speci men Type: BLOOD SPECIMENOrdering Facility: [facility] Address: [address] [place] [address] Performed By: #### 5 7021-8 ####[facility] LABORATORYCLIA [id number] [address] [place] Nucleated RBC/100 WBC (Bld) [Ratio] 0.0 /100 WBC Normal [facility] Comment on above: Order Comment: Speci men Type: BLOOD SPECIMENOrdering Facility: [facility] Address: [address] [place] [address] Performed By: #### 5 7021-8 ####[facility] LABORATORYCLIA [id number] [address] [place] Platelet mean volume (Bld) [Entitic vol] 9.9 fL Normal 9.0-12.7 [facility] Comment on above: Order Comment: Speci men Type: BLOOD SPECIMENOrdering Facility: [facility] Address: [address] [place] [address] Performed By: #### 5 7021-8 ####[facility] LABORATORYCLIA [id number] [place] [address] [place] Platelets (Bld) [#/Vol] 391 10*3/uL Normal 150-400 [facility] Comment on above: Order Comment: Speci men Type: BLOOD SPECIMENOrdering Facility: [facility] Address: [address] [place] [address] Performed By: #### 5 7021-8 ####[facility] LABORATORYCLIA [id number] [place] [address] [place] RBC (Bld) [#/Vol] 3.36 10*6/uL Low 4.20-6.00 [facility] Comment on above: Order Comment: Speci men Type: BLOOD SPECIMENOrdering Facility: [facility] Address: [address] [place] [address] Performed By: #### 5 7021-8 ####[facility] LABORATORYCLIA [id number] [place] [address] [place] WBC (Bld) [#/Vol] 9.00 10*3/uL Normal 3.70-11.00 [facility] Comment on above: Order Comment: Speci men Type: BLOOD SPECIMENOrdering Facility: [facility] Address: [address] [place] [address] Performed By: #### 5 7021-8 ####[facility] LABORATORYCLIA [id number] [address] [place] CONSULT PROGon 07-16-2021 CONSULT PROG Normal [facility] CONSULT PROG Normal [facility] Magnesium SerPl-mCncon 07-16 Magnesium [Mass/Vol] 2.3 mg/dL Normal 1.7-2.3 [facility] Comment on above: Order Comment: Speci men Type: BLOOD SPECIMENOrdering Facility: [facility] Address: [address] [place] [address] Performed By: #### 2 777-1, 26484-4, 38288-5 ####[facility] LABORATORYCLIA [id number] [address] [place] NURSING PROGon 07-16-2021 NURSING PROG Normal [facility] Phosphate SerPl-mCncon 07-16 Phosphate [Mass/Vol] 3.6 mg/dL Normal 2.7-4.8 [facility] Comment on above: Order Comment: Speci men Type: BLOOD SPECIMENOrdering Facility: [facility] Address: [address] [place] [address] Performed By: #### 2 777-1, 40073-5, 38804-0 ####[facility] LABORATORYCLIA [id number] [address] [place] Vancomycin random [Mass/Vol] on 07-16-2021 Vancomycin [Mass/Vol] 16.9 ug/mL Normal 10.0-20.0 [facility] Comment on above: Order Comment: Speci men Type: BLOOD SPECIMENOrdering Facility: [facility] Address: [address] [place] [address] Result Comment: Refe rence ranges and high/low indicator flags are provided as general guidelines only. The treating physician must determine appropriate target levels/dosing based on the specific clinical situation. Performed By: #### 4 091-5 ####[facility] LABORATORYCLIA [id number] [address] [place] aPTT PPPon 07-16-2021 aPTT Coag (PPP) [Time] 57.2 s High 23.0-32.4 [facility] Comment on above: Order Comment: Speci men Type: BLOOD SPECIMENOrdering Facility: [facility] Address: [address] [place] [address] Performed By: #### 1 4979-9 ####[facility] LABORATORYCLIA [id number] [place] [address] [place] ALLIED HEALTHon 07-15-2021 ALLIED HEALTH Normal [facility] Basic metabolic 2000 panelon 07-15-2021 Anion gap [Moles/Vol] 11 mmol/L Normal 9-18 [facility] Comment on above: Order Comment: Speci men Type: BLOOD SPECIMENOrdering Facility: [facility] Address: [address] [place] [address] Performed By: #### 2 4321-2, , 2776-05 ####[facility] LABORATORYCLIA [id number] [place] [address] [place] Calcium [Mass/Vol] 8.8 mg/dL Normal 8.5-10.2 [facility] Comment on above: Order Comment: Speci men Type: BLOOD SPECIMENOrdering Facility: [facility] Address: [address] [place] [address] Performed By: #### 2 4321-2, , 2776-05 ####[facility] LABORATORYCLIA [id number] [place] [address] [place] Chloride [Moles/Vol] 101 mmol/L Normal 97-105 [facility] Comment on above: Order Comment: Speci men Type: BLOOD SPECIMENOrdering Facility: [facility] Address: [address] [place], [place] [address] Performed By: #### 2 4321-2, , 2776-05 ####[facility] LABORATORYCLIA [id number] [place] [address] [place] CO2 [Moles/Vol] 31 mmol/L High 22-30 [facility] Comment on above: Order Comment: Speci men Type: BLOOD SPECIMENOrdering Facility: [facility] Address: [address] [place], [place] [address] Performed By: #### 2 4321-2, 15782-4, 2776-05 ####[facility]ITALCLIA [id number] [place] [id number] [place] [facility] Creatinine [Mass/Vol] 0.76 mg/dL Normal 0.73-1.22 [facility] Comment on above: Order Comment: Speccara feldman Type: BLOOD SPECIMENOrdering Facility: [facility] Address: [address] [place] [address] Performed By: #### 2 4321-2, , 2776-05 ####[facility]ITALCLIA [id number] [place] [id number] [facility] ESTIMATED GLOMERULAR FILTRATION RATE 97 mL/min/1.73m??? Normal >=60 [facility] Comment on above: Order Comment: Speccara feldman Type: BLOOD SPECIMENOrdering Facility: [facility] Address: [address] [place] [address] Result Comment: Luzmaria mated Glomerular Filtration Rate [...] Performed By: #### 2 4321-2, , 2776-05 ####[facility] LABORATORYCLIA [id number] [place] [id number] [place] Glucose [Mass/Vol] 115 mg/dL High 74-99 [facility] Comment on above: Order Comment: Speci men Type: BLOOD SPECIMENOrdering Facility: [facility] Address: [address] Result Comment: The [place] Diabetes [employer] (ADA) provides guidance for cutoff [...] Standards of Medical Care in Diabetes 2016, [place] [employer]. Diabetes Care. 2016.39(Suppl 1). Performed By: #### 2 4321-2, , 2776-05 ####[facility] LABORATORYCLIA [id number] [place] [address] [place] Potassium [Moles/Vol] 4.0 mmol/L Normal 3.7-5.1 [facility] Comment on above: Order Comment: Shira feldman Type: BLOOD SPECIMENOrdering Facility: [facility] Address: [address] [place] [address] Performed By: #### 2 432-2, , 2776-05 ####[facility] LABORATORYCLIA [id number] [address] [place] Sodium [Moles/Vol] 143 mmol/L Normal 136-144 [facility] Comment on above: Order Comment: Shira feldman Type: BLOOD SPECIMENOrdering Facility: [facility] Address: [address] [place] [address] Performed By: #### 2 4321-2, , 2776-05 ####[facility] LABORATORYCLIA [id number] [place] [address] [place] Urea nitrogen [Mass/Vol] 17 mg/dL Normal 9-24 [facility] Comment on above: Order Comment: Johni francia Type: BLOOD SPECIMENOrdering Facility: [facility] Address: [address] [place] [address] Performed By: #### 2 4321-2, , 2776-05 ####[facility] LABORATORYCLIA [id number] [place] [address] [place] CASE MANAGEMon 07-15-2021 CASE MANAGEM Normal [facility] CBC panel Auto (Bld)on 07-15 Erythrocyte distribution width (RBC) [Ratio] 16.4 % High 11.5-15.0 [facility] Comment on above: Order Comment: Speci men Type: BLOOD SPECIMENOrdering Facility: [facility] Address: [address] [place] [address] Performed By: #### 5 8410-2 ####[facility] LABORATORYCLIA [id number] [address] Hematocrit (Bld) [Volume fraction] 30.3 % Low 39.0-51.0 [facility] Comment on above: Order Comment: Speci men Type: BLOOD SPECIMENOrdering Facility: [facility] Address: [address] [place] [address] Performed By: #### 5 8410-2 ####[facility] LABORATORYCLIA [id number] [address] OF [facility] Hemoglobin (Bld) [Mass/Vol] 9.2 g/dL Low 13.0-17.0 [facility] Comment on above: Order Comment: Speci men Type: BLOOD SPECIMENOrdering Facility: [facility] Address: [address] [place] [address] Performed By: #### 5 8410-2 ####[facility] LABORATORYCLIA [id number] [address] STATES OF [facility] MCH (RBC) [Entitic mass] 28.3 pg Normal 26.0-34.0 [facility] Comment on above: Order Comment: Speci men Type: BLOOD SPECIMENOrdering Facility: [facility] Address: [address] [place] [address] Performed By: #### 5 8410-2 ####[facility] LABORATORYCLIA [id number] [address] [place] MCHC (RBC) [Mass/Vol] 30.4 g/dL Low 30.5-36.0 [facility] Comment on above: Order Comment: Speci men Type: BLOOD SPECIMENOrdering Facility: [facility] Address: [address] [place] [address] Performed By: #### 5 8410-2 ####[facility] LABORATORYCLIA [id number] [address] MCV (RBC) [Entitic vol] 93.2 fL Normal 80.0-100.0 [facility] Comment on above: Order Comment: Speci men Type: BLOOD SPECIMENOrdering Facility: [facility] Address: [address] [place] [address] Performed By: #### 5 8410-2 ####[facility] LABORATORYCLIA [id number] [address] Nucleated RBC (Bld) [#/Vol] 10*3/uL Normal <0.01 [facility] Comment on above: Order Comment: Speci men Type: BLOOD SPECIMENOrdering Facility: [facility] Address: [address] [place] [address] Performed By: #### 5 8410-2 ####[facility] LABORATORYCLIA [id number] [address] Platelet mean volume (Bld) [Entitic vol] 9.9 fL Normal 9.0-12.7 [facility] Comment on above: Order Comment: Speci men Type: BLOOD SPECIMENOrdering Facility: [facility] Address: [address] [place] [address] Performed By: #### 5 8410-2 ####[facility] LABORATORYCLIA [id number] [address] Platelets (Bld) [#/Vol] 381 10*3/uL Normal 150-400 [facility] Comment on above: Order Comment: Speci men Type: BLOOD SPECIMENOrdering Facility: [facility] Address: [address] [place] [address] Performed By: #### 5 8410-2 ####[facility] LABORATORYCLIA [id number] [place] [address] [place] RBC (Bld) [#/Vol] 3.25 10*6/uL Low 4.20-6.00 [facility] Comment on above: Order Comment: Speci men Type: BLOOD SPECIMENOrdering Facility: [facility] Address: [address] [place] [address] Performed By: #### 5 8410-2 ####[facility] LABORATORYCLIA [id number] [address] [place] WBC (Bld) [#/Vol] 8.80 10*3/uL Normal 3.70-11.00 [facility] Comment on above: Order Comment: Speci men Type: BLOOD SPECIMENOrdering Facility: [facility] Address: [address] [place] [address] Performed By: #### 5 8410-2 ####[facility] LABORATORYCLIA [id number] [address] Magnesium SerPl-mCncon 07-15 Magnesium [Mass/Vol] 2.2 mg/dL Normal 1.7-2.3 [facility] Comment on above: Order Comment: Speci men Type: BLOOD SPECIMENOrdering Facility: [facility] Address: [address] [place] [address] Performed By: #### 2 4321-2, , 2777-1 ####[facility] LABORATORYCLIA [id number] [address] [place] NURSING PROGon 07-15-2021 NURSING PROG Normal [facility] NURSING PROG Normal [facility] NURSING PROG Normal [facility] NUTRITIONon 07-15-2021 NUTRITION Normal [facility] Phosphate SerPl-mCncon 07-15 Phosphate [Mass/Vol] 3.4 mg/dL Normal 2.7-4.8 [facility] Comment on above: Order Comment: Speci men Type: BLOOD SPECIMENOrdering Facility: [facility] Address: [address] [place] [address] Performed By: #### 2 4321-2, , 2777-1 ####[facility] LABORATORYCLIA [id number] [place] [address] [place] THERAPY NTon 07-15-2021 THERAPY NT Normal [facility] US DVT UPPER LTon 07-15-2021 US DVT UPPER LT Normal [facility] XR CHEST 1V FRONTALon 2021 XR CHEST 1V FRONTAL Normal [facility] aPTT PPPon 07-15-2021 aPTT Coag (PPP) [Time] 59.9 s High 23.0-32.4 [facility] Comment on above: Order Comment: Speci men Type: BLOOD SPECIMENOrdering Facility: [facility] Address: [address] [place] [address] Performed By: #### 1 4979-9 ####[facility] LABORATORYCLIA [id number] [place] [address] [place] Basic metabolic 2000 panelon 07-14-2021 Anion gap [Moles/Vol] 9 mmol/L Normal 9-18 [facility] Comment on above: Order Comment: Speci men Type: BLOOD SPECIMENOrdering Facility: [facility] Address: [address] [place] [address] Performed By: #### 1 9123-9, 2777-, 97920-6 ####[facility] LABORATORYCLIA [id number] [place] [address] [place] Calcium [Mass/Vol] 8.5 mg/dL Normal 8.5-10.2 [facility] Comment on above: Order Comment: Speci men Type: BLOOD SPECIMENOrdering Facility: [facility] Address: [address] [place] [address] Performed By: #### 1 9123-9, 2777-, 53786-4 ####[facility] LABORATORYCLIA [id number] [place] [address] [place] Chloride [Moles/Vol] 99 mmol/L Normal 97-105 [facility] Comment on above: Order Comment: Speci men Type: BLOOD SPECIMENOrdering Facility: [facility] Address: [address] [place] [address] Performed By: #### 1 9123-9, 2777-1, 50315-8 ####[facility]ITALIA [id number] [address] CO2 [Moles/Vol] 31 mmol/L High 22-30 [facility] Comment on above: Order Comment: Speci men Type: BLOOD SPECIMENOrdering Facility: [facility] Address: [address] [place] [address] Performed By: #### 1 9123-9, 2777, 99362-9 ####[facility] [id number] [address] Creatinine [Mass/Vol] 0.74 mg/dL Normal 0.73-1.22 [facility] Comment on above: Order Comment: Speci men Type: BLOOD SPECIMENOrdering Facility: [facility] Address: [address] [place] [address] Performed By: #### 1 9123-9, 2777, 26169-8 ####[facility] [id number] [address] ESTIMATED GLOMERULAR FILTRATION RATE 98 mL/min/1.73m??? Normal >=60 [facility] Comment on above: Order Comment: Speci men Type: BLOOD SPECIMENOrdering Facility: [facility] Address: [address] [place] [address] Result Comment: Luzmaria mated Glomerular Filtration Rate [...] GFR. Performed By: #### 1 9123-9, 2777-1, 80396-8 ####[facility] LABORATORYCLIA [id number] [place] [address] [place] Glucose [Mass/Vol] 117 mg/dL High 74-99 [facility] Comment on above: Order Comment: Speci men Type: BLOOD SPECIMENOrdering Facility: [facility] Address: [address] [place] [address] Result Comment: The [place] Diabetes Association (ADA) provides guidance for cutoff [...] Standards of Medical Care in Diabetes 2016, [place] [employer]. Diabetes Care. 2016.39(Suppl 1). Performed By: #### 1 9123-9, 2777-, 41614-4 ####[facility] LABORATORYCLIA [id number] [place] [address] [place] Potassium [Moles/Vol] 3.7 mmol/L Normal 3.7-5.1 [facility] Comment on above: Order Comment: Shira feldman Type: BLOOD SPECIMENOrdering Facility: [facility] Address: [address] [place], [place] [address] Performed By: #### 1 9123-9, 2777-, 78767-7 ####[facility] LABORATORYCLIA [id number] [place] [address] [place] Sodium [Moles/Vol] 139 mmol/L Normal 136-144 [facility] Comment on above: Order Comment: Shira francia Type: BLOOD SPECIMENOrdering Facility: [facility] Address: [address] [place] [address] Performed By: #### 1 9123-9, 2777-1, 98932-3 ####[facility] LABORATORYCLIA [id number] [place] [address] [place] Urea nitrogen [Mass/Vol] 16 mg/dL Normal 9-24 [facility] Comment on above: Order Comment: Speci men Type: BLOOD SPECIMENOrdering Facility: [facility] Address: [address] [place] [address] Performed By: #### 1 9123-9, 2777-1, 63294-2 ####[facility] LABORATORYCLIA [id number] [address] STATES OF [facility] CBC panel Auto (Bld)on 07-14 Erythrocyte distribution width (RBC) [Ratio] 16.2 % High 11.5-15.0 [facility] Comment on above: Order Comment: Speci men Type: BLOOD SPECIMENOrdering Facility: [facility] Address: [address] [place] [address] Performed By: #### 5 8410-2 ####[facility] LABORATORYCLIA [id number] [address] [place] Hematocrit (Bld) [Volume fraction] 29.7 % Low 39.0-51.0 [facility] Comment on above: Order Comment: Speci men Type: BLOOD SPECIMENOrdering Facility: [facility] Address: [address] [place] [address] Performed By: #### 5 8410-2 ####[facility] LABORATORYCLIA [id number] [address] STATES OF [facility] Hemoglobin (Bld) [Mass/Vol] 8.8 g/dL Low 13.0-17.0 [facility] Comment on above: Order Comment: Speci men Type: BLOOD SPECIMENOrdering Facility: [facility] Address: [address] [place] [address] Performed By: #### 5 8410-2 ####[facility] LABORATORYCLIA [id number] [address] OF [place] MCH (RBC) [Entitic mass] 27.5 pg Normal 26.0-34.0 [facility] Comment on above: Order Comment: Speci men Type: BLOOD SPECIMENOrdering Facility: [facility] Address: [address] [place] [address] Performed By: #### 5 8410-2 ####[facility] LABORATORYCLIA [id number] [address] MCHC (RBC) [Mass/Vol] 29.6 g/dL Low 30.5-36.0 [facility] Comment on above: Order Comment: Speci men Type: BLOOD SPECIMENOrdering Facility: [facility] Address: [address] [place] [address] Performed By: #### 5 8410-2 ####[facility] LABORATORYCLIA [id number] [address] MCV (RBC) [Entitic vol] 92.8 fL Normal 80.0-100.0 [facility] Comment on above: Order Comment: Speci men Type: BLOOD SPECIMENOrdering Facility: [facility] Address: [address] [place] [address] Performed By: #### 5 8410-2 ####[facility] LABORATORYCLIA [id number] [address] Nucleated RBC (Bld) [#/Vol] 10*3/uL Normal <0.01 [facility] Comment on above: Order Comment: Speci men Type: BLOOD SPECIMENOrdering Facility: [facility] Address: [address] [place] [address] Performed By: #### 5 8410-2 ####[facility] LABORATORYCLIA [id number] [address] Platelet mean volume (Bld) [Entitic vol] 9.6 fL Normal 9.0-12.7 [facility] Comment on above: Order Comment: Speci men Type: BLOOD SPECIMENOrdering Facility: [facility] Address: [address] [place] [address] Performed By: #### 5 8410-2 ####[facility] LABORATORYCLIA [id number] [address] Platelets (Bld) [#/Vol] 354 10*3/uL Normal 150-400 [facility] Comment on above: Order Comment: Speci men Type: BLOOD SPECIMENOrdering Facility: [facility] Address: [address] [place] [address] Performed By: #### 5 8410-2 ####[facility] LABORATORYCLIA [id number] [place] [address] [place] RBC (Bld) [#/Vol] 3.20 10*6/uL Low 4.20-6.00 [facility] Comment on above: Order Comment: Speci men Type: BLOOD SPECIMENOrdering Facility: [facility] Address: [address] [place] [address] Performed By: #### 5 8410-2 ####[facility] LABORATORYCLIA [id number] [address] WBC (Bld) [#/Vol] 9.41 10*3/uL Normal 3.70-11.00 [facility] Comment on above: Order Comment: Speci men Type: BLOOD SPECIMENOrdering Facility: [facility] Address: [address] [place] [address] Performed By: #### 5 8410-2 ####[facility] LABORATORYCLIA [id number] [address] OF [facility] CONSULT PROGon 07-14-2021 CONSULT PROG Normal [facility] Magnesium SerPl-mCncon 07-14 Magnesium [Mass/Vol] 2.2 mg/dL Normal 1.7-2.3 [facility] Comment on above: Order Comment: Speci men Type: BLOOD SPECIMENOrdering Facility: [facility] Address: [address] [place] [address] Performed By: #### 1 9123-9, 2777-1, 72665-0 ####[facility] LABORATORYCLIA [id number] [address] [place] NURSING PROGon 07-14-2021 NURSING PROG Normal [facility] Phosphate SerPl-mCncon 07-14 Phosphate [Mass/Vol] 3.6 mg/dL Normal 2.7-4.8 [facility] Comment on above: Order Comment: Speci men Type: BLOOD SPECIMENOrdering Facility: [facility] Address: [address] [place] [address] Performed By: #### 1 9123-9, 2777-1, 46813-6 ####[facility] LABORATORYCLIA [id number] [address] aPTT PPPon 07-14-2021 aPTT Coag (PPP) [Time] 62.9 s High 23.0-32.4 [facility] Comment on above: Order Comment: Speci men Type: BLOOD SPECIMENOrdering Facility: [facility] Address: [address] [place] [address] Performed By: #### 1 4979-9 ####[facility]ITALCLIA [id number] [address] aPTT Coag (PPP) [Time] 55.2 s High 23.0-32.4 [facility] Comment on above: Order Comment: Speci men Type: BLOOD SPECIMENOrdering Facility: [facility] Address: [address] [place] [address] Performed By: #### 1 4979-9 ####[facility]PITALCLIA [id number] [address] [place] Basic metabolic 2000 panelon 07-13-2021 Anion gap [Moles/Vol] 10 mmol/L Normal 9-18 [facility] Comment on above: Order Comment: Speci men Type: BLOOD SPECIMENOrdering Facility: [facility] Address: [address] [place] [address] Performed By: #### 1 9123-9, 2777-1, 79273-7 ####[facility] LABORATORYCLIA [id number] [address] OF [facility] Calcium [Mass/Vol] 8.5 mg/dL Normal 8.5-10.2 [facility] Comment on above: Order Comment: Speci men Type: BLOOD SPECIMENOrdering Facility: [facility] Address: [address] [place] [address] Performed By: #### 1 9123-9, 27711-04, 34000-0 ####[facility] LABORATORYCLIA [id number] [address] [place] Chloride [Moles/Vol] 98 mmol/L Normal 97-105 [facility] Comment on above: Order Comment: Speci men Type: BLOOD SPECIMENOrdering Facility: [facility] Address: [address] [place] [address] Performed By: #### 1 9123-9, 2776-05, 83172-7 ####[facility]ORATORYCLIA [id number] [address] STATES [place] CO2 [Moles/Vol] 32 mmol/L High 22-30 [facility] Comment on above: Order Comment: Speci men Type: BLOOD SPECIMENOrdering Facility: [facility] Address: [address] [place] [address] Performed By: #### 1 9123-9, 2776-05, ####[facility]ORATORYCLIA [id number] [address] STATES OF [facility] Creatinine [Mass/Vol] 0.75 mg/dL Normal 0.73-1.22 [facility] Comment on above: Order Comment: Speci men Type: BLOOD SPECIMENOrdering Facility: [facility] Address: [address] [place] [address] Performed By: #### 1 9123-9, 27711-04, 54834-4 ####[facility] LABORATORYCLIA [id number] [address] ESTIMATED GLOMERULAR FILTRATION RATE 98 mL/min/1.73m??? Normal >=60 [facility] Comment on above: Order Comment: Speci men Type: BLOOD SPECIMENOrdering Facility: [facility] Address: [address] [place] [address] Result Comment: Luzmaria mated Glomerular Filtration Rate [...] GFR. Performed By: #### 1 9123-9, 2777-, 46965-5 ####[facility] HOSPITALIA [id number] [place] [address] [place] Glucose [Mass/Vol] 118 mg/dL High 74-99 [facility] Comment on above: Order Comment: Shira feldman Type: BLOOD SPECIMENOrdering Facility: [facility] Address: [address] [place] [address] Result Comment: The [place] Diabetes [employer] (ADA) provides guidance for cutoff [...] Standards of Medical Care in Diabetes 2016, [place] [employer]. Diabetes Care. 2016.39(Suppl 1). Performed By: #### 1 9123-9, 2777-, 31953-4 ####[facility] HOSPITALIA [id number] [place] [address] [place] Potassium [Moles/Vol] 3.6 mmol/L Low 3.7-5.1 [facility] Comment on above: Order Comment: Shira feldman Type: BLOOD SPECIMENOrdering Facility: [facility] Address: [address] [place], [place] [address] Performed By: #### 1 9123-9, 2777-, 52913-8 ####[facility] LABORATORYCLIA [id number] [place], [place] [address] [place] [address] [place] Sodium [Moles/Vol] 140 mmol/L Normal 136-144 [facility] Comment on above: Order Comment: Speci men Type: BLOOD SPECIMENOrdering Facility: [facility] Address: [address] [place] [address] Performed By: #### 1 9123-9, 2777-, 39514-4 ####[facility] LABORATORYCLIA [id number] [address] [place] Urea nitrogen [Mass/Vol] 15 mg/dL Normal 9-24 [facility] Comment on above: Order Comment: Speci men Type: BLOOD SPECIMENOrdering Facility: [facility] Address: [address] [place] [address] Performed By: #### 1 9123-9, 2777, 97457-1 ####[facility] LABORATORYCLIA [id number] [address] CASE MANAGEMon 07-13-2021 CASE MANAGEM Normal [facility] CBC panel Auto (Bld)on 07-13 Erythrocyte distribution width (RBC) [Ratio] 16.2 % High 11.5-15.0 [facility] Comment on above: Order Comment: Speci men Type: BLOOD SPECIMENOrdering Facility: [facility] Address: [address] [place] [address] Performed By: #### 5 8410-2 ####[facility] LABORATORYCLIA [id number] [address] [facility] Hematocrit (Bld) [Volume fraction] 29.5 % Low 39.0-51.0 [facility] Comment on above: Order Comment: Speci men Type: BLOOD SPECIMENOrdering Facility: [facility] Address: [address] [place] [address] Performed By: #### 5 8410-2 ####[facility] LABORATORYCLIA [id number] [address] [place] Hemoglobin (Bld) [Mass/Vol] 8.9 g/dL Low 13.0-17.0 [facility] Comment on above: Order Comment: Speci men Type: BLOOD SPECIMENOrdering Facility: [facility] Address: [address] [place] [address] Performed By: #### 5 8410-2 ####[facility] LABORATORYCLIA [id number] [address] MCH (RBC) [Entitic mass] 27.8 pg Normal 26.0-34.0 [facility] Comment on above: Order Comment: Speci men Type: BLOOD SPECIMENOrdering Facility: [facility] Address: [address] [place] [address] Performed By: #### 5 8410-2 ####[facility] LABORATORYCLIA [id number] [address] MCHC (RBC) [Mass/Vol] 30.2 g/dL Low 30.5-36.0 [facility] Comment on above: Order Comment: Speci men Type: BLOOD SPECIMENOrdering Facility: [facility] Address: [address] [place] [address] Performed By: #### 5 8410-2 ####[facility] LABORATORYCLIA [id number] [address] MCV (RBC) [Entitic vol] 92.2 fL Normal 80.0-100.0 [facility] Comment on above: Order Comment: Speci men Type: BLOOD SPECIMENOrdering Facility: [facility] Address: [address] [place] [address] Performed By: #### 5 8410-2 ####[facility] LABORATORYCLIA [id number] [address] Nucleated RBC (Bld) [#/Vol] 10*3/uL Normal <0.01 [facility] Comment on above: Order Comment: Speci men Type: BLOOD SPECIMENOrdering Facility: [facility] Address: [address] Performed By: #### 5 8410-2 ####[facility] LABORATORYCLIA [id number] [address] [facility] Platelet mean volume (Bld) [Entitic vol] 9.8 fL Normal 9.0-12.7 [facility] Comment on above: Order Comment: Speci men Type: BLOOD SPECIMENOrdering Facility: [facility] Address: [address] [place] [address] Performed By: #### 5 8410-2 ####[facility] LABORATORYCLIA [id number] [place] [address] [place] Platelets (Bld) [#/Vol] 356 10*3/uL Normal 150-400 [facility] Comment on above: Order Comment: Speci men Type: BLOOD SPECIMENOrdering Facility: [facility] Address: [address] [place] [address] Performed By: #### 5 8410-2 ####[facility] LABORATORYCLIA [id number] [address] [place] RBC (Bld) [#/Vol] 3.20 10*6/uL Low 4.20-6.00 [facility] Comment on above: Order Comment: Speci men Type: BLOOD SPECIMENOrdering Facility: [facility] Address: [address] [place] [address] Performed By: #### 5 8410-2 ####[facility] LABORATORYCLIA [id number] [address] [place] WBC (Bld) [#/Vol] 9.20 10*3/uL Normal 3.70-11.00 [facility] Comment on above: Order Comment: Speci men Type: BLOOD SPECIMENOrdering Facility: [facility] Address: [address] [place] [address] Performed By: #### 5 8410-2 ####[facility] LABORATORYCLIA [id number] [address] CONSULT PROGon 07-13-2021 CONSULT PROG Normal [facility] CONSULT PROG Normal [facility] CONSULT PROG Normal [facility] Magnesium SerPl-mCncon 07-13 Magnesium [Mass/Vol] 2.1 mg/dL Normal 1.7-2.3 [facility] Comment on above: Order Comment: Speci men Type: BLOOD SPECIMENOrdering Facility: [facility] Address: [address] [place] [address] Performed By: #### 1 9123-9, 2777-1, 63442-5 ####[facility]ORATORYCLIA [id number] [address] Phosphate SerPl-mCncon 07-13 Phosphate [Mass/Vol] 3.7 mg/dL Normal 2.7-4.8 [facility] Comment on above: Order Comment: Speci men Type: BLOOD SPECIMENOrdering Facility: [facility] Address: [address] [place] [address] Performed By: #### 1 9123-9, 2777-1, 58802-1 ####[facility] LABORATORYCLIA [id number] [address] THERAPY NTon 07-13-2021 THERAPY NT Normal [facility] THERAPY NT Normal [facility] Vancomycin random [Mass/Vol] on 07-13-2021 Vancomycin [Mass/Vol] 31.7 ug/mL High 10.0-20.0 [facility] Comment on above: Order Comment: Speci men Type: BLOOD SPECIMENOrdering Facility: [facility] Address: [address] [place] [address] Result Comment: Refe rence ranges and high/low indicator flags are provided as general guidelines only. The treating physician must determine appropriate target levels/dosing based on the specific clinical situation. Performed By: #### 4 091-5 ####[facility] LABORATORYCLIA [id number] [address] [place] aPTT PPPon 07-13-2021 aPTT Coag (PPP) [Time] 47.3 s High 23.0-32.4 [facility] Comment on above: Order Comment: Speci men Type: BLOOD SPECIMENOrdering Facility: [facility] Address: [address] [place] [address] Performed By: #### 1 4979-9 ####[facility] LABORATORYCLIA [id number] [address] aPTT Coag (PPP) [Time] 51.2 s High 23.0-32.4 [facility] Comment on above: Order Comment: Speci men Type: BLOOD SPECIMENOrdering Facility: [facility] Address: [address] [place] [address] Performed By: #### 1 4979-9 ####[facility] LABORATORYCLIA [id number] [address] STATES OF [facility] aPTT Coag (PPP) [Time] 47.5 s High 23.0-32.4 [facility] Comment on above: Order Comment: Speci men Type: BLOOD SPECIMENOrdering Facility: [facility] Address: [address] [place] [address] Performed By: #### 1 4979-9 ####[facility] LABORATORYCLIA [id number] [place] [address] [place] Basic metabolic 2000 panelon 07-12-2021 Anion gap [Moles/Vol] 7 mmol/L Low 9-18 [facility] Comment on above: Order Comment: Speci men Type: BLOOD SPECIMENOrdering Facility: [facility] Address: [address] [place] [address] Performed By: #### 1 9123-9, 2777-1, 17054-0 ####[facility] LABORATORYCLIA [id number] [address] STATES OF [facility] Calcium [Mass/Vol] 8.3 mg/dL Low 8.5-10.2 [facility] Comment on above: Order Comment: Speci men Type: BLOOD SPECIMENOrdering Facility: [facility] Address: [address] [place] [address] Performed By: #### 1 9123-9, 2777-1, 28528-8 ####[facility] LABORATORYCLIA [id number] [place] [address] [place] Chloride [Moles/Vol] 101 mmol/L Normal 97-105 [facility] Comment on above: Order Comment: Speci men Type: BLOOD SPECIMENOrdering Facility: [facility] Address: [address] [place] [address] Performed By: #### 1 9123-9, 2777-1, 54817-7 ####[facility] LABORATORYCLIA [id number] [place] [address] [place] CO2 [Moles/Vol] 32 mmol/L High 22-30 [facility] Comment on above: Order Comment: Speci men Type: BLOOD SPECIMENOrdering Facility: [facility] Address: [address] [place] [address] Performed By: #### 1 9123-9, 2777-, 17580-2 ####[facility] LABORATORYCLIA [id number] [place] [address] [place] Creatinine [Mass/Vol] 0.70 mg/dL Low 0.73-1.22 [facility] Comment on above: Order Comment: Speci men Type: BLOOD SPECIMENOrdering Facility: [facility] Address: [address] [place] [address] Performed By: #### 1 9123-9, 2777-, 94517-3 ####[facility] LABORATORYCLIA [id number] [address] OF [place] ESTIMATED GLOMERULAR FILTRATION RATE 100 mL/min/1.73m??? Normal >=60 [facility] Comment on above: Order Comment: Speci men Type: BLOOD SPECIMENOrdering Facility: [facility] Address: [address] [place] [address] Result Comment: Luzmaria mated Glomerular Filtration Rate [...] GFR. Performed By: #### 1 9123-9, 2777-1, 89451-3 ####[facility] LABORATORYCLIA [id number] [place] [address] [place] Glucose [Mass/Vol] 104 mg/dL High 74-99 [facility] Comment on above: Order Comment: Shira feldman Type: BLOOD SPECIMENOrdering Facility: [facility] Address: [address] [place], [place] [address] Result Comment: The [place] [employer] (ADA) provides guidance for cutoff [...] Standards of Medical Care in Diabetes 2016, [place] [employer]. Diabetes Care. 2016.39(Suppl 1). Performed By: #### 1 9123-9, 2776-, 51528-3 ####[facility] LABORATORYCLIA [id number] [place] [id number] [place] Potassium [Moles/Vol] 3.7 mmol/L Normal 3.7-5.1 [facility] Comment on above: Order Comment: Shira feldman Type: BLOOD SPECIMENOrdering Facility: [facility] Address: [address] [place] [address] Performed By: #### 1 9123-9, 2777-, 38150-5 ####[facility] LABORATORYCLIA [id number] [place] [address] [place] Sodium [Moles/Vol] 140 mmol/L Normal 136-144 [facility] Comment on above: Order Comment: Speci men Type: BLOOD SPECIMENOrdering Facility: [facility] Address: [address] [place] [address] Performed By: #### 1 9123-9, 2777-1, 93743-6 ####[facility] LABORATORYCLIA [id number] [address] STATES OF [facility] Urea nitrogen [Mass/Vol] 12 mg/dL Normal 9-24 [facility] Comment on above: Order Comment: Speci men Type: BLOOD SPECIMENOrdering Facility: [facility] Address: [address] [place] [address] Performed By: #### 1 9123-9, 2777-, 31738-2 ####[facility] LABORATORYCLIA [id number] [address] STATES OF [facility] CBC panel Auto (Bld)on 07-12 Erythrocyte distribution width (RBC) [Ratio] 16.1 % High 11.5-15.0 [facility] Comment on above: Order Comment: Speci men Type: BLOOD SPECIMENOrdering Facility: [facility] Address: [address] [place] [address] Performed By: #### 5 8410-2 ####[facility] LABORATORYCLIA [id number] [address] [place] Hematocrit (Bld) [Volume fraction] 28.2 % Low 39.0-51.0 [facility] Comment on above: Order Comment: Speci men Type: BLOOD SPECIMENOrdering Facility: [facility] Address: [address] [place] [address] Performed By: #### 5 8410-2 ####[facility] LABORATORYCLIA [id number] [address] STATES OF [facility] Hemoglobin (Bld) [Mass/Vol] 8.5 g/dL Low 13.0-17.0 [facility] Comment on above: Order Comment: Speci men Type: BLOOD SPECIMENOrdering Facility: [facility] Address: [address] [place] [address] Performed By: #### 5 8410-2 ####[facility] LABORATORYCLIA [id number] [address] MCH (RBC) [Entitic mass] 26.8 pg Normal 26.0-34.0 [facility] Comment on above: Order Comment: Speci men Type: BLOOD SPECIMENOrdering Facility: [facility] Address: [address] [place] [address] Performed By: #### 5 8410-2 ####[facility] LABORATORYCLIA [id number] [address] MCHC (RBC) [Mass/Vol] 30.1 g/dL Low 30.5-36.0 [facility] Comment on above: Order Comment: Speci men Type: BLOOD SPECIMENOrdering Facility: [facility] Address: [address] [place] [address] Performed By: #### 5 8410-2 ####[facility] LABORATORYCLIA [id number] [address] MCV (RBC) [Entitic vol] 89.0 fL Normal 80.0-100.0 [facility] Comment on above: Order Comment: Speci men Type: BLOOD SPECIMENOrdering Facility: [facility] Address: [address] [place] [address] Performed By: #### 5 8410-2 ####[facility] LABORATORYCLIA [id number] [address] Nucleated RBC (Bld) [#/Vol] 10*3/uL Normal <0.01 [facility] Comment on above: Order Comment: Speci men Type: BLOOD SPECIMENOrdering Facility: [facility] Address: [address] [place] [address] Performed By: #### 5 8410-2 ####[facility] LABORATORYCLIA [id number] [address] Platelet mean volume (Bld) [Entitic vol] 9.6 fL Normal 9.0-12.7 [facility] Comment on above: Order Comment: Speci men Type: BLOOD SPECIMENOrdering Facility: [facility] Address: [address] [place] [address] Performed By: #### 5 8410-2 ####[facility] LABORATORYCLIA [id number] [address] OF [facility] Platelets (Bld) [#/Vol] 340 10*3/uL Normal 150-400 [facility] Comment on above: Order Comment: Speci men Type: BLOOD SPECIMENOrdering Facility: [facility] Address: [address] [place] [address] Performed By: #### 5 8410-2 ####[facility] LABORATORYCLIA [id number] [address] [place] RBC (Bld) [#/Vol] 3.17 10*6/uL Low 4.20-6.00 [facility] Comment on above: Order Comment: Speci men Type: BLOOD SPECIMENOrdering Facility: [facility] Address: [address] [place] [address] Performed By: #### 5 8410-2 ####[facility] LABORATORYCLIA [id number] [address] OF [facility] WBC (Bld) [#/Vol] 8.66 10*3/uL Normal 3.70-11.00 [facility] Comment on above: Order Comment: Speci men Type: BLOOD SPECIMENOrdering Facility: [facility] Address: [address] [place] [address] Performed By: #### 5 8410-2 ####[facility] LABORATORYCLIA [id number] [address] OF [place] CONSULTon 07-12-2021 CONSULT Normal [facility] CONSULT PROGon 07-12-2021 CONSULT PROG Normal [facility] Magnesium SerPl-mCncon 07-12 Magnesium [Mass/Vol] 2.1 mg/dL Normal 1.7-2.3 [facility] Comment on above: Order Comment: Speci men Type: BLOOD SPECIMENOrdering Facility: [facility] Address: [address] [place] [address] Performed By: #### 1 9123-9, 2777-1, 67637-6 ####[facility] LABORATORYCLIA [id number] [address] OF [facility] NURSING PROGon 07-12-2021 NURSING PROG Normal [facility] Phosphate SerPl-mCncon 07-12 Phosphate [Mass/Vol] 3.1 mg/dL Normal 2.7-4.8 [facility] Comment on above: Order Comment: Speci men Type: BLOOD SPECIMENOrdering Facility: [facility] Address: [address] [place] [address] Performed By: #### 1 9123-9, 2777, 92456-6 ####[facility] LABORATORYCLIA [id number] [address] THERAPY NTon 07-12-2021 THERAPY NT Normal [facility] aPTT PPPon 07-12-2021 aPTT Coag (PPP) [Time] 49.5 s High 23.0-32.4 [facility] Comment on above: Order Comment: Speci men Type: BLOOD SPECIMENOrdering Facility: [facility] Address: [address] [place] [address] Performed By: #### 1 4979-9 ####[facility] LABORATORYCLIA [id number] [address] [place] aPTT Coag (PPP) [Time] 68.0 s High 23.0-32.4 [facility] Comment on above: Order Comment: Speci men Type: BLOOD SPECIMENOrdering Facility: [facility] Address: [address] [place] [address] Performed By: #### 1 4979-9 ####[facility] LABORATORYCLIA [id number] [address] aPTT Coag (PPP) [Time] 80.0 s High 23.0-32.4 [facility] Comment on above: Order Comment: Speci men Type: BLOOD SPECIMENOrdering Facility: [facility] Address: [address] [place] [address] Performed By: #### 1 4979-9 ####[facility] LABORATORYCLIA [id number] [address] [place] CASE MGT INIT ASSESon 2021 CASE MGT INIT ASSES Normal [facility] CBC panel Auto (Bld)on 07-11 Erythrocyte distribution width (RBC) [Ratio] 16.3 % High 11.5-15.0 [facility] Comment on above: Order Comment: Speci men Type: BLOOD SPECIMENOrdering Facility: [facility] Address: [address] [place] [address] Performed By: #### 5 8410-2 ####[facility] LABORATORYCLIA [id number] [address] [facility] Hematocrit (Bld) [Volume fraction] 28.3 % Low 39.0-51.0 [facility] Comment on above: Order Comment: Speci men Type: BLOOD SPECIMENOrdering Facility: [facility] Address: [address] [place] [address] Performed By: #### 5 8410-2 ####[facility] LABORATORYCLIA [id number] [address] [place] Hemoglobin (Bld) [Mass/Vol] 8.8 g/dL Low 13.0-17.0 [facility] Comment on above: Order Comment: Speci men Type: BLOOD SPECIMENOrdering Facility: [facility] Address: [address] [place] [address] Performed By: #### 5 8410-2 ####[facility] LABORATORYCLIA [id number] [address] [place] MCH (RBC) [Entitic mass] 27.4 pg Normal 26.0-34.0 [facility] Comment on above: Order Comment: Speci men Type: BLOOD SPECIMENOrdering Facility: [facility] Address: [address] [place] [address] Performed By: #### 5 8410-2 ####[facility] LABORATORYCLIA [id number] [address] MCHC (RBC) [Mass/Vol] 31.1 g/dL Normal 30.5-36.0 [facility] Comment on above: Order Comment: Speci men Type: BLOOD SPECIMENOrdering Facility: [facility] Address: [address] [place] [address] Performed By: #### 5 8410-2 ####[facility] LABORATORYCLIA [id number] [address] MCV (RBC) [Entitic vol] 88.2 fL Normal 80.0-100.0 [facility] Comment on above: Order Comment: Speci men Type: BLOOD SPECIMENOrdering Facility: [facility] Address: [address] [place] [address] Performed By: #### 5 8410-2 ####[facility] LABORATORYCLIA [id number] [address] Nucleated RBC (Bld) [#/Vol] 10*3/uL Normal <0.01 [facility] Comment on above: Order Comment: Speci men Type: BLOOD SPECIMENOrdering Facility: [facility] Address: [address] [place] [address] Performed By: #### 5 8410-2 ####[facility] LABORATORYCLIA [id number] [address] Platelet mean volume (Bld) [Entitic vol] 9.7 fL Normal 9.0-12.7 [facility] Comment on above: Order Comment: Speci men Type: BLOOD SPECIMENOrdering Facility: [facility] Address: [address] [place] [address] Performed By: #### 5 8410-2 ####[facility] LABORATORYCLIA [id number] [address] STATES OF [facility] Platelets (Bld) [#/Vol] 315 10*3/uL Normal 150-400 [facility] Comment on above: Order Comment: Speci men Type: BLOOD SPECIMENOrdering Facility: [facility] Address: [address] [place] [address] Performed By: #### 5 8410-2 ####[facility] LABORATORYCLIA [id number] [place] [address] [place] RBC (Bld) [#/Vol] 3.21 10*6/uL Low 4.20-6.00 [facility] Comment on above: Order Comment: Speci men Type: BLOOD SPECIMENOrdering Facility: [facility] Address: [address] [place] [address] Performed By: #### 5 8410-2 ####[facility] LABORATORYCLIA [id number] [address] OF [facility] WBC (Bld) [#/Vol] 9.18 10*3/uL Normal 3.70-11.00 [facility] Comment on above: Order Comment: Speci men Type: BLOOD SPECIMENOrdering Facility: [facility] Address: [address] [place] [address] Performed By: #### 5 8410-2 ####[facility] LABORATORYCLIA [id number] [address] OF [place] CONSULT PROGon 07-11-2021 CONSULT PROG Normal [facility] CT BRAIN WO IVCONon 07-12-[address] BRAIN WO IVCON Normal [facility] Magnesium SerPl-mCncon 07-11 Magnesium [Mass/Vol] 2.1 mg/dL Normal 1.7-2.3 [facility] Comment on above: Order Comment: Speci men Type: BLOOD SPECIMENOrdering Facility: [facility] Address: [address] [place] [address] Performed By: #### 1 9123-9, 2777-1 ####[facility] LABORATORYCLIA [id number] [address] NURSING PROGon 07-11-2021 NURSING PROG Normal [facility] NURSING PROG Normal [facility] Phosphate SerPl-mCncon 07-11 Phosphate [Mass/Vol] 3.4 mg/dL Normal 2.7-4.8 [facility] Comment on above: Order Comment: Speci men Type: BLOOD SPECIMENOrdering Facility: [facility] Address: [address] [place] [address] Performed By: #### 1 9123-9, 2777-1 ####[facility] LABORATORYCLIA [id number] [address] THERAPY NTon 07-11-2021 THERAPY NT Normal [facility] Vancomycin random [Mass/Vol] on 07-11-2021 Vancomycin [Mass/Vol] 28.6 ug/mL High 10.0-20.0 [facility] Comment on above: Order Comment: Speci men Type: BLOOD SPECIMENOrdering Facility: [facility] Address: [address] [place] [address] Result Comment: Refe rence ranges and high/low indicator flags are provided as general guidelines only. The treating physician must determine appropriate target levels/dosing based on the specific clinical situation. Performed By: #### 4 091-5 ####[facility] LABORATORYCLIA [id number] [address] aPTT PPPon 07-11-2021 aPTT Coag (PPP) [Time] 62.0 s High 23.0-32.4 [facility] Comment on above: Order Comment: Speci men Type: BLOOD SPECIMENOrdering Facility: [facility] Address: [address] [place] [address] Performed By: #### 1 4979-9 ####[facility] LABORATORYCLIA [id number] [address] aPTT Coag (PPP) [Time] 52.7 s High 23.0-32.4 [facility] Comment on above: Order Comment: Speci men Type: BLOOD SPECIMENOrdering Facility: [facility] Address: [address] [place] [address] Performed By: #### 1 4979-9 ####[facility] LABORATORYCLIA [id number] [address] [place] aPTT Coag (PPP) [Time] 29.9 s Normal 23.0-32.4 [facility] Comment on above: Order Comment: Speci men Type: BLOOD SPECIMENOrdering Facility: [facility] Address: [address] [place] [address] Performed By: #### 1 4979-9 ####[facility] LABORATORYCLIA [id number] [place] [address] [place] Basic metabolic 2000 panelon 07-10-2021 Anion gap [Moles/Vol] 14 mmol/L Normal 9-18 [facility] Comment on above: Order Comment: Speci men Type: BLOOD SPECIMENOrdering Facility: [facility] Address: [address] [place] [address] Performed By: #### 1 9123-9, 2777-1, 51591-1 ####[facility]ITALCLIA [id number] [place] [address] [place] Calcium [Mass/Vol] 8.5 mg/dL Normal 8.5-10.2 [facility] Comment on above: Order Comment: Speci men Type: BLOOD SPECIMENOrdering Facility: [facility] Address: [address] [place] [address] Performed By: #### 1 9123-9, 2777-1, 39895-8 ####[facility] LABORATORYCLIA [id number] [place] [address] [place] Chloride [Moles/Vol] 100 mmol/L Normal 97-105 [facility] Comment on above: Order Comment: Speci men Type: BLOOD SPECIMENOrdering Facility: [facility] Address: [address] [place] [address] Performed By: #### 1 9123-9, 2777, 15323-0 ####[facility] LABORATORYCLIA [id number] [address] STATES OF [facility] CO2 [Moles/Vol] 27 mmol/L Normal 22-30 [facility] Comment on above: Order Comment: Speci men Type: BLOOD SPECIMENOrdering Facility: [facility] Address: [address] [place] [address] Performed By: #### 1 9123-9, 27711-04, 06327-8 ####[facility] LABORATORYCLIA [id number] [address] STATES OF [facility] Creatinine [Mass/Vol] 0.66 mg/dL Low 0.73-1.22 [facility] Comment on above: Order Comment: Speci men Type: BLOOD SPECIMENOrdering Facility: [facility] Address: [address] [place] [address] Performed By: #### 1 9123-9, 27711-04, ####[facility]PITALCLIA [id number] [address] ESTIMATED GLOMERULAR FILTRATION RATE 102 mL/min/1.73m??? Normal >=60 [facility] Comment on above: Order Comment: Speci men Type: BLOOD SPECIMENOrdering Facility: [facility] Address: [address] [place] [address] Result Comment: Luzmaria mated Glomerular Filtration Rate [...] GFR. Performed By: #### 1 9123-9, 2777-, 95220-0 ####[facility] LABORATORYCLIA [id number] [address] [place] Glucose [Mass/Vol] 93 mg/dL Normal 74-99 [facility] Comment on above: Order Comment: Speci men Type: BLOOD SPECIMENOrdering Facility: [facility] Address: [address] [place], [place] [phone] Result Comment: The [place] [employer] (ADA) provides guidance for cutoff [...] Standards of Medical Care in Diabetes 2016, [place] [employer]. Diabetes Care. 2016.39(Suppl 1). Performed By: #### 1 9123-9, 2777-1, 85267-7 ####[facility] LABORATORYCLIA [id number] [place] [address] [place] Potassium [Moles/Vol] 3.5 mmol/L Low 3.7-5.1 [facility] Comment on above: Order Comment: [facility] Type: BLOOD SPECIMENOrdering Facility: [facility] Address: [address] [place], [place] [id number] Performed By: #### 1 9123-9, 2777-, 32516-3 ####[facility] LABORATORYCLIA [id number] [place] [address] [place] Sodium [Moles/Vol] 141 mmol/L Normal 136-144 [facility] Comment on above: Order Comment: Speci men Type: BLOOD SPECIMENOrdering Facility: [facility] Address: [address] [place], [place] [phone] Performed By: #### 1 9123-9, 2777-, 16486-3 ####[facility] LABORATORYCLIA [id number] [place] [address] [place] Urea nitrogen [Mass/Vol] 11 mg/dL Normal 9-24 [facility] Comment on above: Order Comment: Speci men Type: BLOOD SPECIMENOrdering Facility: [facility] Address: [address] [place] [address] Performed By: #### 1 9123-9, 2777-1, 56565-2 ####[facility] LABORATORYCLIA [id number] [address] CBC panel Auto (Bld)on 07-10 Erythrocyte distribution width (RBC) [Ratio] 16.2 % High 11.5-15.0 [facility] Comment on above: Order Comment: Speci men Type: BLOOD SPECIMENOrdering Facility: [facility] Address: [address] [place] [address] Performed By: #### 5 8410-2 ####[facility] LABORATORYCLIA [id number] [address] Hematocrit (Bld) [Volume fraction] 30.6 % Low 39.0-51.0 [facility] Comment on above: Order Comment: Speci men Type: BLOOD SPECIMENOrdering Facility: [facility] Address: [address] [place] [address] Performed By: #### 5 8410-2 ####[facility] LABORATORYCLIA [id number] [address] Hemoglobin (Bld) [Mass/Vol] 9.6 g/dL Low 13.0-17.0 [facility] Comment on above: Order Comment: Speci men Type: BLOOD SPECIMENOrdering Facility: [facility] Address: [address] [place] [address] Performed By: #### 5 8410-2 ####[facility] LABORATORYCLIA [id number] [address] MCH (RBC) [Entitic mass] 28.3 pg Normal 26.0-34.0 [facility] Comment on above: Order Comment: Speci men Type: BLOOD SPECIMENOrdering Facility: [facility] Address: [address] [place] [address] Performed By: #### 5 8410-2 ####[facility] LABORATORYCLIA [id number] [address] [facility] MCHC (RBC) [Mass/Vol] 31.4 g/dL Normal 30.5-36.0 [facility] Comment on above: Order Comment: Speci men Type: BLOOD SPECIMENOrdering Facility: [facility] Address: [address] [place] [address] Performed By: #### 5 8410-2 ####[facility] LABORATORYCLIA [id number] [address] [facility] MCV (RBC) [Entitic vol] 90.3 fL Normal 80.0-100.0 [facility] Comment on above: Order Comment: Speci men Type: BLOOD SPECIMENOrdering Facility: [facility] Address: [address] [place] [address] Performed By: #### 5 8410-2 ####[facility] LABORATORYCLIA [id number] [address] Nucleated RBC (Bld) [#/Vol] 10*3/uL Normal <0.01 [facility] Comment on above: Order Comment: Speci men Type: BLOOD SPECIMENOrdering Facility: [facility] Address: [address] [place] [address] Performed By: #### 5 8410-2 ####[facility] LABORATORYCLIA [id number] [address] [place] Platelet mean volume (Bld) [Entitic vol] 9.7 fL Normal 9.0-12.7 [facility] Comment on above: Order Comment: Speci men Type: BLOOD SPECIMENOrdering Facility: [facility] Address: [address] [place] [address] Performed By: #### 5 8410-2 ####[facility] LABORATORYCLIA [id number] [address] [place] Platelets (Bld) [#/Vol] 306 10*3/uL Normal 150-400 [facility] Comment on above: Order Comment: Speci men Type: BLOOD SPECIMENOrdering Facility: [facility] Address: [address] [place] [address] Performed By: #### 5 8410-2 ####[facility] LABORATORYCLIA [id number] [address] OF [facility] RBC (Bld) [#/Vol] 3.39 10*6/uL Low 4.20-6.00 [facility] Comment on above: Order Comment: Speci men Type: BLOOD SPECIMENOrdering Facility: [facility] Address: [address] [place] [address] Performed By: #### 5 8410-2 ####[facility] LABORATORYCLIA [id number] [address] WBC (Bld) [#/Vol] 9.81 10*3/uL Normal 3.70-11.00 [facility] Comment on above: Order Comment: Speci men Type: BLOOD SPECIMENOrdering Facility: [facility] Address: [address] [place] [address] Performed By: #### 5 8410-2 ####[facility] LABORATORYCLIA [id number] [address] [place] CONSULTon 07-10-2021 CONSULT Normal [facility] CONSULT Normal [facility] Magnesium SerPl-mCncon 07-10 Magnesium [Mass/Vol] 1.9 mg/dL Normal 1.7-2.3 [facility] Comment on above: Order Comment: Speci men Type: BLOOD SPECIMENOrdering Facility: [facility] Address: [address] [place] [address] Performed By: #### 1 9123-9, 2777-1, 06955-9 ####[facility] LABORATORYCLIA [id number] [address] [place] NURSING PROGon 07-10-2021 NURSING PROG Normal [facility] NURSING PROG Normal [facility] NUTRITIONon 07-10-2021 NUTRITION Normal [facility] Phosphate SerPl-mCncon 07-10 Phosphate [Mass/Vol] 3.6 mg/dL Normal 2.7-4.8 [facility] Comment on above: Order Comment: Speci men Type: BLOOD SPECIMENOrdering Facility: [facility] Address: [address] [place] [address] Performed By: #### 1 9123-9, 2777-1, 88765-4 ####[facility] LABORATORYCLIA [id number] [address] [place] US DVT LOWER BILon US DVT LOWER RAINER Normal [facility] aPTT PPPon 07-10-2021 aPTT Coag (PPP) [Time] 28.8 s Normal 23.0-32.4 [facility] Comment on above: Order Comment: Speci men Type: BLOOD SPECIMENOrdering Facility: [facility] Address: [address] [place] [address] Performed By: #### 1 4979-9 ####[facility] LABORATORYCLIA [id number] [address] aPTT Coag (PPP) [Time] 28.4 s Normal 23.0-32.4 [facility] Comment on above: Order Comment: Speci men Type: BLOOD SPECIMENOrdering Facility: [facility] Address: [address] [place] [address] Performed By: #### 1 4979-9 ####[facility] LABORATORYCLIA [id number] [address] [place] ALLIED HEALTHon 07-09-2021 ALLIED HEALTH Normal [facility] Basic metabolic 2000 panelon 07-09-2021 Anion gap [Moles/Vol] 9 mmol/L Normal 9-18 [facility] Comment on above: Order Comment: Speci men Type: BLOOD SPECIMENOrdering Facility: [facility] Address: [address] [place] [address] Performed By: #### 1 9123-9, 2777-1, 20122-4 ####[facility] LABORATORYCLIA [id number] [place] [address] [place] Calcium [Mass/Vol] 8.3 mg/dL Low 8.5-10.2 [facility] Comment on above: Order Comment: Speci men Type: BLOOD SPECIMENOrdering Facility: [facility] Address: [address] [place] [address] Performed By: #### 1 9123-9, 2777-1, 80764-1 ####[facility] LABORATORYCLIA [id number] [place] [address] [place] Chloride [Moles/Vol] 100 mmol/L Normal 97-105 [facility] Comment on above: Order Comment: Speci men Type: BLOOD SPECIMENOrdering Facility: [facility] Address: [address] [place] [address] Performed By: #### 1 9123-9, 27711-04, 44002-7 ####[facility] LABORATORYCLIA [id number] [address] [place] CO2 [Moles/Vol] 29 mmol/L Normal 22-30 [facility] Comment on above: Order Comment: Speci men Type: BLOOD SPECIMENOrdering Facility: [facility] Address: [address] [place] [address] Performed By: #### 1 9123-9, 27711-04, 80756-9 ####[facility] LABORATORYCLIA [id number] [place] [address] [place] Creatinine [Mass/Vol] 0.61 mg/dL Low 0.73-1.22 [facility] Comment on above: Order Comment: Speci men Type: BLOOD SPECIMENOrdering Facility: [facility] Address: [address] [place] [address] Performed By: #### 1 9123-9, 2777-1, 84408-5 ####[facility] LABORATORYCLIA [id number] [address] OF [facility] ESTIMATED GLOMERULAR FILTRATION RATE 104 mL/min/1.73m??? Normal >=60 [facility] Comment on above: Order Comment: Shira feldman Type: BLOOD SPECIMENOrdering Facility: [facility] Address: [address] [place], [place] [address] Result Comment: Luzmaria mated Glomerular Filtration Rate [...] GFR. Performed By: #### 1 9123-9, 2777-1, 78533-7 ####[facility]PITALCLIA [id number] [place] [address] [place] Glucose [Mass/Vol] 106 mg/dL High 74-99 [facility] Comment on above: Order Comment: Shira feldman Type: BLOOD SPECIMENOrdering Facility: [facility] Address: [address] [place] [address] Result Comment: The [place] Diabetes [employer] (ADA) provides guidance for cutoff [...] Standards of Medical Care in Diabetes 2016, [place] [employer]. Diabetes Care. 2016.39(Suppl 1). Performed By: #### 1 9123-9, 2777-1, 42186-7 ####[facility] LABORATORYCLIA [id number] [place] [address] [place] Potassium [Moles/Vol] 3.6 mmol/L Low 3.7-5.1 [facility] Comment on above: Order Comment: Shira feldman Type: BLOOD SPECIMENOrdering Facility: [facility] Address: [address] [place] [address] Performed By: #### 1 9123-9, 2777-1, 80225-1 ####[facility] LABORATORYCLIA [id number] [address] Sodium [Moles/Vol] 138 mmol/L Normal 136-144 [facility] Comment on above: Order Comment: Speci men Type: BLOOD SPECIMENOrdering Facility: [facility] Address: [address] [place] [address] Performed By: #### 1 9123-9, 2777, 35951-8 ####[facility] LABORATORYCLIA [id number] [address] Urea nitrogen [Mass/Vol] 12 mg/dL Normal 9-24 [facility] Comment on above: Order Comment: Speci men Type: BLOOD SPECIMENOrdering Facility: [facility] Address: [address] [place] [address] Performed By: #### 1 9123-9, 2777, 48963-6 ####[facility] LABORATORYCLIA [id number] [address] CBC panel Auto (Bld)on 07-09 Erythrocyte distribution width (RBC) [Ratio] 16.2 % High 11.5-15.0 [facility] Comment on above: Order Comment: Speci men Type: BLOOD SPECIMENOrdering Facility: [facility] Address: [address] [place] [address] Performed By: #### 5 8410-2 ####[facility] LABORATORYCLIA [id number] [address] Hematocrit (Bld) [Volume fraction] 29.0 % Low 39.0-51.0 [facility] Comment on above: Order Comment: Speci men Type: BLOOD SPECIMENOrdering Facility: [facility] Address: [address] [place] [address] Performed By: #### 5 8410-2 ####[facility] LABORATORYCLIA [id number] [address] OF [facility] Hemoglobin (Bld) [Mass/Vol] 8.8 g/dL Low 13.0-17.0 [facility] Comment on above: Order Comment: Speci men Type: BLOOD SPECIMENOrdering Facility: [facility] Address: [address] [place] [address] Performed By: #### 5 8410-2 ####[facility] LABORATORYCLIA [id number] [address] MCH (RBC) [Entitic mass] 27.0 pg Normal 26.0-34.0 [facility] Comment on above: Order Comment: Speci men Type: BLOOD SPECIMENOrdering Facility: [facility] Address: [address] [place] [address] Performed By: #### 5 8410-2 ####[facility] LABORATORYCLIA [id number] [address] MCHC (RBC) [Mass/Vol] 30.3 g/dL Low 30.5-36.0 [facility] Comment on above: Order Comment: Speci men Type: BLOOD SPECIMENOrdering Facility: [facility] Address: [address] [place] [address] Performed By: #### 5 8410-2 ####[facility] LABORATORYCLIA [id number] [address] MCV (RBC) [Entitic vol] 89.0 fL Normal 80.0-100.0 [facility] Comment on above: Order Comment: Speci men Type: BLOOD SPECIMENOrdering Facility: [facility] Address: [address] [place] [address] Performed By: #### 5 8410-2 ####[facility] LABORATORYCLIA [id number] [address] Nucleated RBC (Bld) [#/Vol] 10*3/uL Normal <0.01 [facility] Comment on above: Order Comment: Speci men Type: BLOOD SPECIMENOrdering Facility: [facility] Address: [address] [place] [address] Performed By: #### 5 8410-2 ####[facility] LABORATORYCLIA [id number] [address] Platelet mean volume (Bld) [Entitic vol] 9.8 fL Normal 9.0-12.7 [facility] Comment on above: Order Comment: Speci men Type: BLOOD SPECIMENOrdering Facility: [facility] Address: [address] [place] [address] Performed By: #### 5 8410-2 ####[facility] LABORATORYCLIA [id number] [address] [place] Platelets (Bld) [#/Vol] 281 10*3/uL Normal 150-400 [facility] Comment on above: Order Comment: Speci men Type: BLOOD SPECIMENOrdering Facility: [facility] Address: [address] [place] [address] Performed By: #### 5 8410-2 ####[facility] LABORATORYCLIA [id number] [address] [place] RBC (Bld) [#/Vol] 3.26 10*6/uL Low 4.20-6.00 [facility] Comment on above: Order Comment: Speci men Type: BLOOD SPECIMENOrdering Facility: [facility] Address: [address] [place], [place] [address] Performed By: #### 5 8410-2 ####[facility] LABORATORYCLIA [id number] [address] [place] WBC (Bld) [#/Vol] 9.12 10*3/uL Normal 3.70-11.00 [facility] Comment on above: Order Comment: Speci men Type: BLOOD SPECIMENOrdering Facility: [facility] Address: [address] [place] [address] Performed By: #### 5 8410-2 ####[facility] LABORATORYCLIA [id number] [address] [place] CONSULT PROGon 07-09-2021 CONSULT PROG Normal [facility] CONSULT PROG Normal [facility] HISTORY PHYSICALon HISTORY PHYSICAL Normal [facility] Magnesium SerPl-mCncon 07-09 Magnesium [Mass/Vol] 1.9 mg/dL Normal 1.7-2.3 [facility] Comment on above: Order Comment: Speci men Type: BLOOD SPECIMENOrdering Facility: [facility] Address: [address] [place] [address] Performed By: #### 1 9123-9, 2777-1, 69200-3 ####[facility] LABORATORYCLIA [id number] [address] Phosphate SerPl-mCncon 07-09 Phosphate [Mass/Vol] 3.6 mg/dL Normal 2.7-4.8 [facility] Comment on above: Order Comment: Speci men Type: BLOOD SPECIMENOrdering Facility: [facility] Address: [address] [place] [address] Performed By: #### 1 9123-9, 2777-1, 77942-5 ####[facility] LABORATORYCLIA [id number] [address] THERAPY NTon 07-09-2021 THERAPY NT Normal [facility] XR ABDOMEN 1V SUPINEon 07-09 XR ABDOMEN 1V SUPINE Normal [facility] ALLIED HEALTHon 07-08-2021 ALLIED HEALTH Normal [facility] ALLIED HEALTH Normal [facility] ALLIED HEALTH Normal [facility] ANES PRE-OPon 07-08-2021 ANES PRE-OP Normal [facility] BRIEF OP NOTon 07-08-2021 BRIEF OP NOT Normal [facility] Bacteria Bld Culton 07-09-19 22 Bacteria identified Cx Nom (Bld) CULTURE, BLOOD: No growth 5 days Normal [facility] Comment on above: Performed By: #### 6 00-7 ####[facility] LABORATORYCLIA [id number] [address] Bacteria identified Cx Nom (Bld) CULTURE, BLOOD: No growth 5 days [facility] Comment on above: Performed By: #### 6 00-7 ####[facility] LABORATORYCLIA [id number] [address] Bacteria CSF Culton 07-09-19 22 Bacteria identified Cx Nom (CSF) CULTURE, CSF: No growth 14 days GRAM STAIN: No organisms seen No Polymorphonuclear Leukocytes Few Red Blood Cells Gram stain performed on cytospun specimen. Normal [facility] Comment on above: Performed By: #### 6 06-4 ####[facility] LABORATORYCLIA [id number] [address] Bacteria Ur Culton 2 Bacteria identified Cx Nom (U) ORGANISM ID: 1 10,000 -<50,000 CFU/ml Proteus species Insignificant colony count. No further workup. ORGANISM ID: 2 <10,000 CFU/ml Normal urogenital chris [facility] Comment on above: Performed By: #### 6 30-4 ####[facility] LABORATORYCLIA [id number] [address] Bacteria Wnd Culton 07-09-19 22 Bacteria identified Cx Nom (Wound) ORGANISM ID: 1 Coagulase negative staphylococcus Growth in Enrichment Broth Only No susceptibility testing done. Call lab within 72 hours to initiate work-up if clinically indicated. GRAM STAIN: Account credited. Not performed on this specimen type. Normal [facility] Comment on above: Performed By: #### 6 462-6 ####[facility] LABORATORYCLIA [id number] [address] Bacteria identified Cx Nom (Wound) ORGANISM ID: 1 Rare Coagulase negative staphylococcus No susceptibility testing done. Call lab within 72 hours to initiate work-up if clinically indicated. GRAM STAIN: Account credited. Not performed on this specimen type. [facility] Comment on above: Performed By: #### 6 462-6 ####[facility] LABORATORYCLIA [id number] [place] [address] Bacteria identified Cx Nom (Wound) CULTURE, INTRAOPERATIVE HARDWARE: No growth 14 days GRAM STAIN: Account credited. Not performed on this specimen type. Normal [facility] Comment on above: Performed By: #### 6 462-6 ####[facility] LABORATORYCLIA [id number] [place] [address] [place] Basic metabolic 2000 panelon 07-08-2021 Anion gap [Moles/Vol] 9 mmol/L Normal 9-18 [facility] Comment on above: Order Comment: Speci men Type: BLOOD SPECIMENOrdering Facility: [facility] Address: [address] [place] [address] Performed By: #### 2 4321-2 ####[facility] LABORATORYCLIA [id number] [place] [address] [place] Calcium [Mass/Vol] 8.5 mg/dL Normal 8.5-10.2 [facility] Comment on above: Order Comment: Speci men Type: BLOOD SPECIMENOrdering Facility: [facility] Address: [address] [place] [address] Performed By: #### 2 4321-2 ####[facility] LABORATORYCLIA [id number] [address] [place] Chloride [Moles/Vol] 98 mmol/L Normal 97-105 [facility] Comment on above: Order Comment: Speci men Type: BLOOD SPECIMENOrdering Facility: [facility] Address: [address] [place] [address] Performed By: #### 2 4321-2 ####[facility] LABORATORYCLIA [id number] [place] [address] [place] CO2 [Moles/Vol] 31 mmol/L High 22-30 [facility] Comment on above: Order Comment: Speci men Type: BLOOD SPECIMENOrdering Facility: [facility] Address: [facility] [place] [address] Performed By: #### 2 4321-2 ####[facility] LABORATORYCLIA [id number] [address] [place] Creatinine [Mass/Vol] 0.64 mg/dL Low 0.73-1.22 [facility] Comment on above: Order Comment: Shira feldman Type: BLOOD SPECIMENOrdering Facility: [facility] Address: [address] [place] [address] Performed By: #### 2 4321-2 ####[facility] LABORATORYIA [id number] [address] ESTIMATED GLOMERULAR FILTRATION RATE 102 mL/min/1.73m??? Normal >=60 [facility] Comment on above: Order Comment: Shira feldman Type: BLOOD SPECIMENOrdering Facility: [facility] Address: [address] [place] [address] Result Comment: Luzmaria mated Glomerular Filtration Rate [...] #### 2 4321-2 ####[facility] HOSPITALIA [id number] [address] [place] Glucose [Mass/Vol] 114 mg/dL High 74-99 [facility] Comment on above: Order Comment: Shira feldman Type: BLOOD SPECIMENOrdering Facility: [facility] Address: [address] [place] [address] Result Comment: The [place] Diabetes [employer] (ADA) provides guidance for cutoff [...] Standards of Medical Care in Diabetes 2016, [place] [employer]. Diabetes Care. 2016.39(Suppl 1). Performed By: #### 2 4321-2 ####[facility] LABORATORYCLIA [id number] [address] [place] Potassium [Moles/Vol] 3.4 mmol/L Low 3.7-5.1 [facility] Comment on above: Order Comment: Speci men Type: BLOOD SPECIMENOrdering Facility: [facility] Address: [address] [place] [address] Performed By: #### 2 4321-2 ####[facility] LABORATORYCLIA [id number] [address] [facility] Sodium [Moles/Vol] 138 mmol/L Normal 136-144 [facility] Comment on above: Order Comment: Speci men Type: BLOOD SPECIMENOrdering Facility: [facility] Address: [address] [place] [address] Performed By: #### 2 4321-2 ####[facility] LABORATORYCLIA [id number] [address] [facility] Urea nitrogen [Mass/Vol] 14 mg/dL Normal 9-24 [facility] Comment on above: Order Comment: Speci men Type: BLOOD SPECIMENOrdering Facility: [facility] Address: [address] [place] [address] Performed By: #### 2 4321-2 ####[facility] LABORATORYCLIA [id number] [address] [place] CBC W Auto Differential pane l (Bld)on 07-08-2021 Basophils (Bld) [#/Vol] 0.05 10*3/uL Normal <0.11 [facility] Comment on above: Order Comment: Speci men Type: BLOOD SPECIMENOrdering Facility: [facility] Address: [address] [place] [address] Performed By: #### 5 7021-8 ####[facility] LABORATORYCLIA [id number] [address] [place] Basophils/100 WBC (Bld) 0.4 % Normal [facility] Comment on above: Order Comment: Speci men Type: BLOOD SPECIMENOrdering Facility: [facility] Address: [address] [place] [address] Performed By: #### 5 7021-8 ####[facility] LABORATORYCLIA [id number] [address] [place] Differential cell count method Nom (Bld) Auto Normal [facility] Comment on above: Order Comment: Speci men Type: BLOOD SPECIMENOrdering Facility: [facility] Address: [address] [place] [address] Performed By: #### 5 7021-8 ####[facility] LABORATORYCLIA [id number] [address] [place] Eosinophils (Bld) [#/Vol] 0.68 10*3/uL High <0.46 [facility] Comment on above: Order Comment: Speci men Type: BLOOD SPECIMENOrdering Facility: [facility] Address: [address] [place] [address] Performed By: #### 5 7021-8 ####[facility] LABORATORYCLIA [id number] [address] [place] Eosinophils/100 WBC (Bld) 5.4 % Normal [facility] Comment on above: Order Comment: Speci men Type: BLOOD SPECIMENOrdering Facility: [facility] Address: [address] [place] [address] Performed By: #### 5 7021-8 ####[facility] LABORATORYCLIA [id number] [address] [place] Erythrocyte distribution width (RBC) [Ratio] 16.3 % High 11.5-15.0 [facility] Comment on above: Order Comment: Speci men Type: BLOOD SPECIMENOrdering Facility: [facility] Address: [address] [place] [address] Performed By: #### 5 7021-8 ####[facility] LABORATORYCLIA [id number] [address] Hematocrit (Bld) [Volume fraction] 35.7 % Low 39.0-51.0 [facility] Comment on above: Order Comment: Speci men Type: BLOOD SPECIMENOrdering Facility: [facility] Address: [address] [place] [address] Performed By: #### 5 7021-8 ####[facility] LABORATORYCLIA [id number] [address] Hemoglobin (Bld) [Mass/Vol] 10.8 g/dL Low 13.0-17.0 [facility] Comment on above: Order Comment: Speci men Type: BLOOD SPECIMENOrdering Facility: [facility] Address: [address] [place] [address] Performed By: #### 5 7021-8 ####[facility] LABORATORYCLIA [id number] [address] IMMATURE GRAN % 0.4 % Normal [facility] Comment on above: Order Comment: Speci men Type: BLOOD SPECIMENOrdering Facility: [facility] Address: [address] [place] [address] Performed By: #### 5 7021-8 ####[facility] LABORATORYCLIA [id number] [address] IMMATURE GRAN ABS 0.05 k/uL Normal <0.10 [facility] Comment on above: Order Comment: Speci men Type: BLOOD SPECIMENOrdering Facility: [facility] Address: [address] [place] [address] Performed By: #### 5 7021-8 ####[facility] LABORATORYCLIA [id number] [address] Lymphocytes (Bld) [#/Vol] 1.85 10*3/uL Normal 1.00-4.00 [facility] Comment on above: Order Comment: Speci men Type: BLOOD SPECIMENOrdering Facility: [facility] Address: [address] [place] [address] Performed By: #### 5 7021-8 ####[facility] LABORATORYCLIA [id number] [address] Lymphocytes/100 WBC (Bld) 14.7 % Normal [facility] Comment on above: Order Comment: Speci men Type: BLOOD SPECIMENOrdering Facility: [facility] Address: [address] [place] [address] Performed By: #### 5 7021-8 ####[facility] LABORATORYCLIA [id number] [address] OF [facility] MCH (RBC) [Entitic mass] 27.1 pg Normal 26.0-34.0 [facility] Comment on above: Order Comment: Speci men Type: BLOOD SPECIMENOrdering Facility: [facility] Address: [address] [place] [address] Performed By: #### 5 7021-8 ####[facility] LABORATORYCLIA [id number] [address] [facility] MCHC (RBC) [Mass/Vol] 30.3 g/dL Low 30.5-36.0 [facility] Comment on above: Order Comment: Speci men Type: BLOOD SPECIMENOrdering Facility: [facility] Address: [address] [place] [address] Performed By: #### 5 7021-8 ####[facility] LABORATORYCLIA [id number] [address] MCV (RBC) [Entitic vol] 89.7 fL Normal 80.0-100.0 [facility] Comment on above: Order Comment: Speci men Type: BLOOD SPECIMENOrdering Facility: [facility] Address: [address] [place] [address] Performed By: #### 5 7021-8 ####[facility] LABORATORYCLIA [id number] [address] Monocytes (Bld) [#/Vol] 0.87 10*3/uL High <0.87 [facility] Comment on above: Order Comment: Speci men Type: BLOOD SPECIMENOrdering Facility: [facility] Address: [address] [place] [address] Performed By: #### 5 7021-8 ####[facility] LABORATORYCLIA [id number] [address] [place] Monocytes/100 WBC (Bld) 6.9 % Normal [facility] Comment on above: Order Comment: Speci men Type: BLOOD SPECIMENOrdering Facility: [facility] Address: [address] [place] [address] Performed By: #### 5 7021-8 ####[facility] LABORATORYCLIA [id number] [address] [place] Neutrophils (Bld) [#/Vol] 9.05 10*3/uL High 1.45-7.50 [facility] Comment on above: Order Comment: Speci men Type: BLOOD SPECIMENOrdering Facility: [facility] Address: [address] [place] [address] Performed By: #### 5 7021-8 ####[facility] LABORATORYCLIA [id number] [address] [place] Neutrophils/100 WBC (Bld) 72.2 % Normal [facility] Comment on above: Order Comment: Speci men Type: BLOOD SPECIMENOrdering Facility: [facility] Address: [address] [place] [address] Performed By: #### 5 7021-8 ####[facility]ORATORYCLIA [id number] [address] [place] Nucleated RBC (Bld) [#/Vol] 10*3/uL Normal <0.01 [facility] Comment on above: Order Comment: Speci men Type: BLOOD SPECIMENOrdering Facility: [facility] Address: [address] [place] [address] Performed By: #### 5 7021-8 ####[facility]ORATORYCLIA [id number] [address] [place] Nucleated RBC/100 WBC (Bld) [Ratio] 0.0 /100 WBC Normal [facility] Comment on above: Order Comment: Speci men Type: BLOOD SPECIMENOrdering Facility: [facility] Address: [address] [place] [address] Performed By: #### 5 7021-8 ####[facility] LABORATORYCLIA [id number] [place] [address] [place] [place] Platelet mean volume (Bld) [Entitic vol] 9.9 fL Normal 9.0-12.7 [facility] Comment on above: Order Comment: Speci men Type: BLOOD SPECIMENOrdering Facility: [facility] Address: [address] [place] [address] Performed By: #### 5 7021-8 ####[facility] LABORATORYCLIA [id number] [address] [place] Platelets (Bld) [#/Vol] 335 10*3/uL Normal 150-400 [facility] Comment on above: Order Comment: Speci men Type: BLOOD SPECIMENOrdering Facility: [facility] Address: [address] [place] [address] Performed By: #### 5 7021-8 ####[facility] LABORATORYCLIA [id number] [place] [address] [place] RBC (Bld) [#/Vol] 3.98 10*6/uL Low 4.20-6.00 [facility] Comment on above: Order Comment: Speci men Type: BLOOD SPECIMENOrdering Facility: [facility] Address: [address] [place] [address] Performed By: #### 5 7021-8 ####[facility] LABORATORYCLIA [id number] [address] [place] WBC (Bld) [#/Vol] 12.55 10*3/uL High 3.70-11.00 [facility] Comment on above: Order Comment: Speci men Type: BLOOD SPECIMENOrdering Facility: [facility] Address: [address] [place] [address] Performed By: #### 5 7021-8 ####[facility] LABORATORYCLIA [id number] [address] OF [facility] CK CREATINE KINASEon 022 CK [Catalytic activity/Vol] 72 U/L Normal 51-298 [facility] Comment on above: Order Comment: Speci men Type: BLOOD SPECIMENOrdering Facility: [facility] Address: [address] [place] [address] Performed By: #### C K, 47065-0 ####[facility] LABORATORYCLIA [id number] [address] [place] CONSULT PROGon 07-08-2021 CONSULT PROG Normal [facility] CONSULT PROG Normal [facility] CSF MANUAL DIFFon 07-08-2021 DIF TTL, CSF 3 cells counted Normal [facility] Comment on above: Order Comment: Speci men Type: CEREBROSPINAL FLUIDOrdering Facility: [facility] Address: [address] [place] [address] Performed By: #### 3 4563-7, [id number] ####[facility] LABORATORYCLIA [id number] [place] [address] [place] LYMPH%, CSF 33 % Low 50-90 [facility] Comment on above: Order Comment: Speci men Type: CEREBROSPINAL FLUIDOrdering Facility: [facility] Address: [address] [place] [address] Performed By: #### 3 4563-7, [id number] ####[facility] LABORATORYCLIA [id number] [place] [address] [place] MONO%, CSF 67 % High 10-50 [facility] Comment on above: Order Comment: Speci men Type: CEREBROSPINAL FLUIDOrdering Facility: [facility] Address: [address] [place] [address] Performed By: #### 3 4563-7, [id number] ####[facility] LABORATORYCLIA [id number] [place] [address] [place] ABD/PEL W IVCONon 022 CT ABD/PEL W IVCON Normal [facility] CT BRAIN WO IVCONon 07-09-[address] BRAIN WO IVCON Normal [facility] CT BRAIN WO IVCON Normal [facility] CT CHEST W IVCON PEon 2021 CT CHEST W IVCON PE Normal [facility] Cell count panel (CSF)on Clarity (CSF) Clear Normal Clear [facility] Comment on above: Order Comment: Speci men Type: CEREBROSPINAL FLUIDOrdering Facility: [facility] Address: [address] [place] [address] Performed By: #### 3 4563-7, [id number] ####[facility] LABORATORYCLIA [id number] [place] [address] [place] Clarity (Unsp spec) Clear Normal Clear [facility] Comment on above: Order Comment: Speci men Type: CEREBROSPINAL FLUIDOrdering Facility: [facility] Address: [address] [place] [address] Performed By: #### 3 4563-7, [id number] ####[facility] LABORATORYCLIA [id number] [address] [place] Color (CSF) Colorless Normal Colorless [facility] Comment on above: Order Comment: Speci men Type: CEREBROSPINAL FLUIDOrdering Facility: [facility] Address: [address] [place] [address] Performed By: #### 3 4563-7, [id number] ####[facility]ORATORYCLIA [id number] [address] [place] Color (Spun CSF) Colorless Normal Colorless [facility] Comment on above: Order Comment: Speci men Type: CEREBROSPINAL FLUIDOrdering Facility: [facility] Address: [address] [place] [address] Performed By: #### 3 4563-7, [id number] ####[facility]ORATORYCLIA [id number] [address] CSF TUBE [employer]BER [employer] Normal [facility] Comment on above: Order Comment: Speci men Type: CEREBROSPINAL FLUIDOrdering Facility: [facility] Address: [address] [place] [address] Performed By: #### 3 4563-7, [id number] ####[facility] LABORATORYCLIA [id number] [address] RBC Manual cnt (CSF) [#/Vol] 94 cells/uL High 0-5 [facility] Comment on above: Order Comment: Speci men Type: CEREBROSPINAL FLUIDOrdering Facility: [facility] Address: [address] [place] [address] Performed By: #### 3 4563-7, [id number] ####[facility] LABORATORYCLIA [id number] [address] WBC Manual cnt (CSF) [#/Vol] 1 cells/uL Normal 0-5 [facility] Comment on above: Order Comment: Speci men Type: CEREBROSPINAL FLUIDOrdering Facility: [facility] Address: [address] [place] [address] Performed By: #### 3 4563-7, [id number] ####[facility] LABORATORYCLIA [id number] [address] OF [facility] Comprehensive metabolic 2000 panelon 07-08-2021 Albumin [Mass/Vol] 3.6 g/dL Low 3.9-4.9 [facility] Comment on above: Order Comment: Speci men Type: BLOOD SPECIMENOrdering Facility: [facility] Address: [address] [place] [address] Performed By: #### C K, 43718-0 ####[facility] LABORATORYCLIA [id number] [address] ALP [Catalytic activity/Vol] 125 U/L High 38-113 [facility] Comment on above: Order Comment: Speci men Type: BLOOD SPECIMENOrdering Facility: [facility] Address: [address] [address] Performed By: #### Eileen Valdivia, 85990-3 ####[facility] LABORATORYCLIA [id number] [place] [address] [place] ALT With P-5'-P [Catalytic activity/Vol] 24 U/L Normal 10-54 [facility] Comment on above: Order Comment: Speci men Type: BLOOD SPECIMENOrdering Facility: [facility] Address: [address] [address] Performed By: #### Eileen Valdivia, 77526-1 ####[facility] LABORATORYCLIA [id number] [address] STATES OF [facility] Anion gap [Moles/Vol] 16 mmol/L Normal 9-18 [facility] Comment on above: Order Comment: Speci men Type: BLOOD SPECIMENOrdering Facility: [facility] Address: [address] [place] [address] Performed By: #### Eileen Valdivia, 80365-2 ####[facility] LABORATORYCLIA [id number] [address] [place] AST With P-5'-P [Catalytic activity/Vol] 21 U/L Normal 14-40 [facility] Comment on above: Order Comment: Speci men Type: BLOOD SPECIMENOrdering Facility: [facility] Address: [address] [place] [address] Performed By: #### Eileen Valdivia, 97279-3 ####[facility] LABORATORYCLIA [id number] [address] [place] Bilirubin [Mass/Vol] 0.3 mg/dL Normal 0.2-1.3 [facility] Comment on above: Order Comment: Speci men Type: BLOOD SPECIMENOrdering Facility: [facility] Address: [address] [place] [address] Performed By: #### Eileen Valdivia, 62493-1 ####[facility] LABORATORYCLIA [id number] [address] [place] Calcium [Mass/Vol] 8.9 mg/dL Normal 8.5-10.2 [facility] Comment on above: Order Comment: Speci men Type: BLOOD SPECIMENOrdering Facility: [facility] Address: [address] [address] Performed By: #### Eileen Valdivia, 83724-4 ####[facility] LABORATORYCLIA [id number] [place] [address] [place] Chloride [Moles/Vol] 96 mmol/L Low 97-105 [facility] Comment on above: Order Comment: Speci men Type: BLOOD SPECIMENOrdering Facility: [facility] Address: [address] [place] [address] Performed By: #### Eileen Valdivia, 46113-1 ####[facility] LABORATORYCLIA [id number] [address] [place] CO2 [Moles/Vol] 27 mmol/L Normal 22-30 [facility] Comment on above: Order Comment: Speci men Type: BLOOD SPECIMENOrdering Facility: [facility] Address: [address] [place] [address] Performed By: #### Eileen Valdivia, 16968-4 ####[facility] LABORATORYCLIA [id number] [address] [place] Creatinine [Mass/Vol] 0.68 mg/dL Low 0.73-1.22 [facility] Comment on above: Order Comment: Speci men Type: BLOOD SPECIMENOrdering Facility: [facility] Address: [address] [address] Performed By: #### Eileen Valdivia, 64383-5 ####[facility] LABORATORYCLIA [id number] [address] ESTIMATED GLOMERULAR FILTRATION RATE 101 mL/min/1.73m??? Normal >=60 [facility] Comment on above: Order Comment: Speci men Type: BLOOD SPECIMENOrdering Facility: [facility] Address: [address] [place] [address] Result Comment: Lzumaria mated Glomerular Filtration Rate (eGFR) is calculated [...] actual GFR. Performed By: #### Eileen Valdivia, 46077-8 ####[facility] LABORATORYCLIA [id number] [place] [address] [place] Glucose [Mass/Vol] 130 mg/dL High 74-99 [facility] Comment on above: Order Comment: Shira feldman Type: BLOOD SPECIMENOrdering Facility: [facility] Address: [address] [place], [place] [id number] Result Comment: The [place] Diabetes Association (ADA) provides guidance for cutoff [...] Standards of Medical Care in Diabetes 2016, [place] [employer] Association. Diabetes Care. 2016.39(Suppl 1). Performed By: #### Eileen Valdivia, 90621-8 ####[facility] LABORATORYCLIA [id number] [place] [id number] [place] Potassium [Moles/Vol] 3.9 mmol/L Normal 3.7-5.1 [facility] Comment on above: Order Comment: Shira feldman Type: BLOOD SPECIMENOrdering Facility: [facility] Address: [address] [place] [address] Performed By: #### Eileen Valdivia, 03168-6 ####[facility] LABORATORYCLIA [id number] [place] [address] [place] Protein [Mass/Vol] 7.0 g/dL Normal 6.3-8.0 [facility] Comment on above: Order Comment: Speci men Type: BLOOD SPECIMENOrdering Facility: [facility] Address: [address] [place] [address] Performed By: #### Eileen Valdivia, 34214-3 ####[facility]ORATORYCLIA [id number] [address] [place] Sodium [Moles/Vol] 139 mmol/L Normal 136-144 [facility] Comment on above: Order Comment: Speci men Type: BLOOD SPECIMENOrdering Facility: [facility] Address: [address] [place] [address] Performed By: #### Eileen Valdivia, 55977-0 ####[facility]ORATORYCLIA [id number] [address] [place] Urea nitrogen [Mass/Vol] 16 mg/dL Normal 9-24 [facility] Comment on above: Order Comment: Speci men Type: BLOOD SPECIMENOrdering Facility: [facility] Address: [address] [place] [address] Performed By: #### Eileen Valdivia, 67638-7 ####[facility]ORATORYCLIA [id number] [address] ED NOTEon 07-08-2021 ED NOTE HNO ID: [id number] Author: Lenora James RN Service: Emergency Medicine Author Type: Registered Nurse Type: ED Notes Filed: 07/08/2021 5:03 PM Note Text: Pt to OR with surgical team Normal [facility] ED NOTE HNO ID: [id number] Author: Lenora James RN Service: Emergency Medicine Author Type: Registered Nurse Type: ED Notes Filed: 07/08/2021 4:50 PM Note Text: OR team to get pt Normal [facility] ED NOTE HNO ID: [id number] Author: Lenora James RN Service: Emergency Medicine Author Type: Registered Nurse Type: ED Notes Filed: 07/08/2021 4:50 PM Note Text: Normal [facility] ED NOTE HNO ID: [id number] Author: Lenoar James RN Service: Emergency Medicine Author Type: Registered Nurse Type: ED Notes Filed: 07/08/2021 4:50 PM Note Text: Spoke with presurg; pt to go to OR now [facility] ED NOTE HNO ID: [id number] Author: Lenora James RN Service: Emergency Medicine Author Type: Registered Nurse Type: ED Notes Filed: 07/08/2021 4:12 PM Note Text: Neurosurgery at beside [facility] ED NOTE HNO ID: [id number] Author: Lenora James RN Service: Emergency Medicine Author Type: Registered Nurse Type: ED Notes Filed: 07/08/2021 2:35 PM Note Text: respiratory aware of pt breathing treatments [facility] ED NOTE HNO ID: [id number] Author: Lisa Woo RN Service: ? Author Type: Registered Nurse Type: ED Notes Filed: 07/08/2021 2:20 PM Note Text: Xray notified pt is ready. [facility] ED NOTE HNO ID: [id number] Author: Lenora James RN Service: Emergency Medicine Author Type: Registered Nurse Type: ED Notes Filed: 07/08/2021 12:14 PM Note Text: CT notified regarding imaging orders placed [facility] ED NOTE Normal [facility] ED PROV NOTEon 07-08-2021 ED PROV NOTE Normal [facility] Glucose CSF-mCncon 2 Glucose (CSF) [Mass/Vol] 88 mg/dL High 40-70 [facility] Comment on above: Order Comment: Speci men Type: CEREBROSPINAL FLUIDOrdering Facility: [facility] Address: [address] [place] [address] Result Comment: Lumb ar CSF glucose values of healthy patients are approximately 60% of the plasma values and must always be compared with a concurrently measured plasma value for adequate clinical interpretation.References: 1. Glucose HK (GLUC3) [package insert V 12.0 Spanish]. [employer], [place], [place]. September 2015. 2. Teresa HGarfield, Loki, H. (2015). Chapter 7: Glucose and Lactate. F. Irnia rose al.(eds.), Cerebrospinal Fluid in Clinical Neurology. Braxton: [employer]. Performed By: #### 2 880-3, 2342-4 ####[facility] LABORATORYCLIA [id number] [address] HIGH SENSITIVITY TROPONIN To n 07-08-2021 HIGH SENSITIVITY TAMIKO 27 ng/L High <12 [facility] Comment on above: Order Comment: Speci men Type: BLOOD SPECIMENOrdering Facility: [facility] Address: [address] [place] [address] Result Comment: When assessing risk for acute [...] day MACE. Performed By: #### H STNT ####[facility] LABORATORYCLIA [id number] [address] HIGH SENSITIVITY TAMIKO 36 ng/L High <12 [facility] Comment on above: Order Comment: Speci francia Type: BLOOD SPECIMENOrdering Facility: [facility] Address: [address] [place] [address] Result Comment: When assessing risk for acute [...] day MACE. Performed By: #### H STNT ####[facility] LABORATORYCLIA [id number] [address] OF [facility] HISTORY PHYSICALon HISTORY PHYSICAL Normal [facility] NURSING PROGon 07-08-2021 NURSING PROG Normal [facility] OPERATIVE NOon 07-08-2021 OPERATIVE NO Normal [facility] Prot CSF-mCncon 07-08-2021 Protein (CSF) [Mass/Vol] 33 mg/dL Normal 15-45 [facility] Comment on above: Order Comment: Speci men Type: CEREBROSPINAL FLUIDOrdering Facility: [facility] Address: [address] [place] [address] Performed By: #### 2 880-3, 2342-4 ####[facility] LABORATORYCLIA [id number] [address] [place] SARS-CoV-2 RNA Resp Ql MEGAN+p robeon 07-08-2021 SARS-CoV-2 (COVID-19) RNA MEGAN+probe Ql (Resp) COVID 19 RESULT: SARS-CoV-2 (Agent of COVID-19) Not Detected by RT-PCR or equivalent method. This test has been authorized by FDA under an Emergency Use Authorization (EUA). Normal [facility] Comment on above: Performed By: #### 9 4500-6 ####[facility] LABORATORYCLIA [id number] [address] STAPH AUREUS PCRon 2 S. aureus and MRSA panel MEGAN+probe (Nose) Normal Negative [facility] Comment on above: Order Comment: Speci men Type: SWAB OF INTERNAL NOSEOrdering Facility: [facility] Address: [address] [place] [address] Result Comment: Nega tive for Staphylococcus aureus by PCR.Negative for MRSA by PCR Performed By: #### S APCR ####[facility] LABORATORYCLIA [id number] [address] [place] Urinalysis complete panel (U )on 07-08-2021 Bacteria LM.HPF (Urine sed) [#/Area] Few Abnormal None Seen [facility] Comment on above: Order Comment: Speci men Type: URINE SPECIMENOrdering Facility: [facility] Address: [address] [place] [address] Performed By: #### 2 4356-8 ####[facility] LABORATORYCLIA [id number] [place] [address] [place] Bilirubin Ql (U) Negative Normal Negative [facility] Comment on above: Order Comment: Speci men Type: URINE SPECIMENOrdering Facility: [facility] Address: [address] [place] [address] Performed By: #### 2 4356-8 ####[facility] LABORATORYCLIA [id number] [address] Clarity (Unsp spec) Turbid Abnormal Clear [facility] Comment on above: Order Comment: Speci men Type: URINE SPECIMENOrdering Facility: [facility] Address: [address] [place] [address] Performed By: #### 2 4356-8 ####[facility] LABORATORYCLIA [id number] [address] Color (U) Light Yellow Normal yellow [facility] Comment on above: Order Comment: Speci men Type: URINE SPECIMENOrdering Facility: [facility] Address: [address] [place] [address] Performed By: #### 2 4356-8 ####[facility] LABORATORYCLIA [id number] [address] Glucose Test strip (U) [Mass/Vol] Negative Normal Negative [facility] Comment on above: Order Comment: Speci men Type: URINE SPECIMENOrdering Facility: [facility] Address: [address] [place] [address] Performed By: #### 2 4356-8 ####[facility] LABORATORYCLIA [id number] [address] Hemoglobin Ql (U) Negative Normal Negative [facility] Comment on above: Order Comment: Speci men Type: URINE SPECIMENOrdering Facility: [facility] Address: [address] [place] [address] Performed By: #### 2 4356-8 ####[facility] LABORATORYCLIA [id number] [address] Hyaline casts (Urine sed) [#/Area] 1-3 /LPF Abnormal 0 /LPF [facility] Comment on above: Order Comment: Speci men Type: URINE SPECIMENOrdering Facility: [facility] Address: [address] [place] [address] Performed By: #### 2 4356-8 ####[facility]ORATORYCLIA [id number] [address] Ketones Ql (U) Negative Normal Negative [facility] Comment on above: Order Comment: Speci men Type: URINE SPECIMENOrdering Facility: [facility] Address: [address] [place] [address] Performed By: #### 2 4356-8 ####[facility] LABORATORYCLIA [id number] [address] Leukocyte esterase Test strip Ql (U) Negative Normal Negative [facility] Comment on above: Order Comment: Speci men Type: URINE SPECIMENOrdering Facility: [facility] Address: [address] [place] [address] Performed By: #### 2 4356-8 ####[facility] LABORATORYCLIA [id number] [address] [place] Nitrite Ql (U) Negative Normal Negative [facility] Comment on above: Order Comment: Speci men Type: URINE SPECIMENOrdering Facility: [facility] Address: [address] [place] [address] Performed By: #### 2 4356-8 ####[facility]ATORYCLIA [id number] [address] [place] pH (U) 5.0 [pH] Normal 5.0-8.0 [facility] Comment on above: Order Comment: Speci men Type: URINE SPECIMENOrdering Facility: [facility] Address: [address] [place] [address] Performed By: #### 2 4356-8 ####[facility]ATORYCLIA [id number] [address] [place] Protein (U) [Mass/Vol] Negative Normal Negative [facility] Comment on above: Order Comment: Speci men Type: URINE SPECIMENOrdering Facility: [facility] Address: [address] [place] [address] Performed By: #### 2 4356-8 ####[facility] LABORATORYCLIA [id number] [address] RBC LM.HPF (Urine sed) [#/Area] 11-25 /HPF Abnormal 0-3 /HPF [facility] Comment on above: Order Comment: Speci men Type: URINE SPECIMENOrdering Facility: [facility] Address: [address] [place] [address] Performed By: #### 2 4356-8 ####[facility] LABORATORYCLIA [id number] [address] Specific gravity (U) [Rel density] 1.018 Normal 1.005-1.030 [facility] Comment on above: Order Comment: Speci men Type: URINE SPECIMENOrdering Facility: [facility] Address: [address] [place] [address] Performed By: #### 2 4356-8 ####[facility] LABORATORYCLIA [id number] [address] Urobilinogen Ql (U) Normal Normal Negative [facility] Comment on above: Order Comment: Speci men Type: URINE SPECIMENOrdering Facility: [facility] Address: [address] [place] [address] Performed By: #### 2 4356-8 ####[facility] LABORATORYCLIA [id number] [address] WBC LM.HPF (Urine sed) [#/Area] /[HPF] Abnormal 0-5 /HPF [facility] Comment on above: Order Comment: Speci men Type: URINE SPECIMENOrdering Facility: [facility] Address: [address] [place] [address] Performed By: #### 2 4356-8 ####[facility] LABORATORYCLIA [id number] [address] Vancomycin random [Mass/Vol] on 07-08-2021 Vancomycin [Mass/Vol] 31.0 ug/mL High 10.0-20.0 [facility] Comment on above: Order Comment: Speci men Type: BLOOD SPECIMENOrdering Facility: [facility] Address: [address] [place] [address] Result Comment: Refe rence ranges and high/low indicator flags are provided as general guidelines only. The treating physician must determine appropriate target levels/dosing based on the specific clinical situation. Performed By: #### 4 091-5 ####[facility] LABORATORYCLIA [id number] [address] OF [facility] XR ABD 2V SUPINE W UPR/DECUB /CTLon 07-08-2021 XR ABD 2V SUPINE W UPR/DECUB/CTL Normal [facility] XR CHEST 1V FRONTALon 2021 XR CHEST 1V FRONTAL Normal [facility] XR CHEST 1V FRONTAL Normal [facility] XR NECK SOFT TISSUE 2V AP/LA Ton 07-08-2021 XR NECK SOFT TISSUE 2V AP/LAT Normal [facility] XR SKULL 2V AP/LATon 022 XR SKULL 2V AP/LAT Normal [facility] HISTORY PHYSICALon HISTORY PHYSICAL HNO ID: [id number] Author: Amy Beltran MD Service: ? Author Type: Physician Type: HANDP Filed: 06/30/2021 6:42 PM Note Text: Connected Care Unit History and Physical Facility: [facility] Level of Care: Skilled Admission Date: June [...] regarding the above plan. Total time spent oncv-hx-uqge and/or counseling and coordinating care on the skilled care unit for patient was approximately 45 minutes SUBJECTIVE (HISTORY) Chief Complaint: Confusion, infection, blood clot. Andrew Sifuentes is being seen today for assisted facility (SNF) admission AND management of weakness, tube feed, infected retroperitoneal infection and seizure. HPI: This is a 71 year old male who presents from [facility] with primary admitting diagnosis of Seizure, [...] CT brain concerning for hydrocephalus. Tip of [employer] shunt was found to be in [...] Status: Fu (more content not included)... Normal [facility] Basic metabolic 2000 panelon 06-28-2021 Anion gap [Moles/Vol] 7 mmol/L Low 9-18 [facility] on [facility] Comment on above: Order Comment: Speci men Type: BLOOD SPECIMENOrdering Facility: [facility] Address: [address] [place] [address] [place] [address] Performed By: #### 2 43205-08, ####[facility] LABORATORYCLIA [id number] [place] [address] [place] Calcium [Mass/Vol] 8.8 mg/dL Normal 8.5-10.2 [facility] Comment on above: Order Comment: Speci men Type: BLOOD SPECIMENOrdering Facility: [facility] Address: [address] [place] [address] Performed By: #### 2 2, ####[facility] LABORATORYCLIA [id number] [place] [address] [place] Chloride [Moles/Vol] 103 mmol/L Normal 97-105 [facility] Comment on above: Order Comment: Speci men Type: BLOOD SPECIMENOrdering Facility: [facility] Address: [address] [place] [address] Performed By: #### 2 4320-06, ####[facility] LABORATORYCLIA [id number] [place] [address] [place] CO2 [Moles/Vol] 28 mmol/L Normal 22-30 [facility] Comment on above: Order Comment: Speci men Type: BLOOD SPECIMENOrdering Facility: [facility] Address: [address] [place] [address] Performed By: #### 2 4320-06, ####[facility] LABORATORYCLIA [id number] [place] [address] [place] Creatinine [Mass/Vol] 0.57 mg/dL Low 0.73-1.22 [facility] Comment on above: Order Comment: Speci men Type: BLOOD SPECIMENOrdering Facility: [facility] Address: [address] [place] [address] Performed By: #### 2 4320-06, ####[facility] LABORATORYCLIA [id number] [place] [address] [place] GFR/1.73 sq M.predicted MDRD (S/P/Bld) [Vol rate/Area] mL/min/{1.73_m2} Normal [facility] Comment on above: Order Comment: Shira feldman Type: BLOOD SPECIMENOrdering Facility: [facility] Address: [address] [place] [address] Result Comment: >60e GFR (Estimated GFR) Units [...] actual GFR. Performed By: #### 2 4321-2, 91636-8 ####[facility] LABORATORYCLIA [id number] [place] [address] [place] Glucose [Mass/Vol] 120 mg/dL High 74-99 [facility] Comment on above: Order Comment: Shira feldman Type: BLOOD SPECIMENOrdering Facility: [facility] Address: [address] [place] [address] Result Comment: The [place] Diabetes Association (ADA) provides guidance for cutoff [...] Standards of Medical Care in Diabetes 2016, [place] [employer]. Diabetes Care. 2016.39(Suppl 1). Performed By: #### 2 4321-2, 96344-7 ####[facility] LABORATORYCLIA [id number] [place] [address] [place] Potassium [Moles/Vol] 3.8 mmol/L Normal 3.7-5.1 [facility] Comment on above: Order Comment: Speci men Type: BLOOD SPECIMENOrdering Facility: [facility] Address: [address] [place] [address] Performed By: #### 2 4321-2, ####[facility] LABORATORYCLIA [id number] [address] [facility] Sodium [Moles/Vol] 138 mmol/L Normal 136-144 [facility] Comment on above: Order Comment: Speci men Type: BLOOD SPECIMENOrdering Facility: [facility] Address: [address] [place] [address] Performed By: #### 2 4321-2, ####[facility] LABORATORYCLIA [id number] [address] [facility] Urea nitrogen [Mass/Vol] 24 mg/dL Normal 9-24 [facility] Comment on above: Order Comment: Speci men Type: BLOOD SPECIMENOrdering Facility: [facility] Address: [address] [place] [address] Performed By: #### 2 4321-2, ####[facility] LABORATORYCLIA [id number] [address] CASE MANAGEMon 06-28-2021 CASE MANAGEM Normal [facility] CBC panel Auto (Bld)on 06-28 Erythrocyte distribution width (RBC) [Ratio] 15.6 % High 11.5-15.0 [facility] Comment on above: Order Comment: Speci men Type: BLOOD SPECIMENOrdering Facility: [facility] Address: [address] [place] [address] Performed By: #### 5 8410-2 ####[facility] LABORATORYCLIA [id number] [address] Hematocrit (Bld) [Volume fraction] 30.5 % Low 39.0-51.0 [facility] Comment on above: Order Comment: Speci men Type: BLOOD SPECIMENOrdering Facility: [facility] Address: [address] [place] [address] Performed By: #### 5 8410-2 ####[facility] LABORATORYCLIA [id number] [address] Hemoglobin (Bld) [Mass/Vol] 9.4 g/dL Low 13.0-17.0 [facility] Comment on above: Order Comment: Speci men Type: BLOOD SPECIMENOrdering Facility: [facility] Address: [address] [place] [address] Performed By: #### 5 8410-2 ####[facility] LABORATORYCLIA [id number] [address] MCH (RBC) [Entitic mass] 27.8 pg Normal 26.0-34.0 [facility] Comment on above: Order Comment: Speci men Type: BLOOD SPECIMENOrdering Facility: [facility] Address: [address] [place] [address] Performed By: #### 5 8410-2 ####[facility] LABORATORYCLIA [id number] [address] MCHC (RBC) [Mass/Vol] 30.8 g/dL Normal 30.5-36.0 [facility] Comment on above: Order Comment: Speci men Type: BLOOD SPECIMENOrdering Facility: [facility] Address: [address] [place] [address] Performed By: #### 5 8410-2 ####[facility] LABORATORYCLIA [id number] [address] [facility] MCV (RBC) [Entitic vol] 90.2 fL Normal 80.0-100.0 [facility] Comment on above: Order Comment: Speci men Type: BLOOD SPECIMENOrdering Facility: [facility] Address: [address] [place] [address] Performed By: #### 5 8410-2 ####[facility] LABORATORYCLIA [id number] [place] [address] [place] Nucleated RBC (Bld) [#/Vol] 10*3/uL Normal <0.01 [facility] Comment on above: Order Comment: Speci men Type: BLOOD SPECIMENOrdering Facility: [facility] Address: [address] [place] [address] Performed By: #### 5 8410-2 ####[facility] LABORATORYCLIA [id number] [place] [address] [place] Platelet mean volume (Bld) [Entitic vol] 9.9 fL Normal 9.0-12.7 [facility] Comment on above: Order Comment: Speci men Type: BLOOD SPECIMENOrdering Facility: [facility] Address: [address] [place] [address] Performed By: #### 5 8410-2 ####[facility] LABORATORYCLIA [id number] [address] [place] Platelets (Bld) [#/Vol] 333 10*3/uL Normal 150-400 [facility] Comment on above: Order Comment: Speci men Type: BLOOD SPECIMENOrdering Facility: [facility] Address: [address] [place] [address] Performed By: #### 5 8410-2 ####[facility] LABORATORYCLIA [id number] [place] [address] [place] RBC (Bld) [#/Vol] 3.38 10*6/uL Low 4.20-6.00 [facility] Comment on above: Order Comment: Speci men Type: BLOOD SPECIMENOrdering Facility: [facility] Address: [address] [address] Performed By: #### 5 8410-2 ####[facility] LABORATORYCLIA [id number] [place] [address] [place] WBC (Bld) [#/Vol] 9.71 10*3/uL Normal 3.70-11.00 [facility] Comment on above: Order Comment: Speci men Type: BLOOD SPECIMENOrdering Facility: [facility] Address: [address] [address] Performed By: #### 5 8410-2 ####[facility] LABORATORYCLIA [id number] [address] [place] CNDSon 06-28-2021 CNDS Normal [facility] CONSULT PROGon 06-28-2021 CONSULT PROG Normal [facility] Magnesium SerPl-mCncon 06-28 Magnesium [Mass/Vol] 2.2 mg/dL Normal 1.7-2.3 [facility] Comment on above: Order Comment: Speci men Type: BLOOD SPECIMENOrdering Facility: [facility] Address: [address] [address] Performed By: #### 2 4321-2, ####[facility] LABORATORYCLIA [id number] [address] Vancomycin random [Mass/Vol] on 06-28-2021 Vancomycin [Mass/Vol] 23.0 ug/mL High 10.0-20.0 [facility] Comment on above: Order Comment: Speci men Type: BLOOD SPECIMENOrdering Facility: [facility] Address: [address] [place] [address] Result Comment: Refe rence ranges and high/low indicator flags are provided as general guidelines only. The treating physician must determine appropriate target levels/dosing based on the specific clinical situation. Performed By: #### 4 091-5 ####[facility] LABORATORYCLIA [id number] [address] OF [facility] ALLIED HEALTHon 06-27-2021 ALLIED HEALTH Normal [facility] Basic metabolic 2000 panelon 06-27-2021 Anion gap [Moles/Vol] 10 mmol/L Normal 9-18 [facility] Comment on above: Order Comment: Speci men Type: BLOOD SPECIMENOrdering Facility: [facility] Address: [address] [address] Performed By: #### 2 4321-2, ####[facility]ORATORYCLIA [id number] [place] [address] [place] Calcium [Mass/Vol] 8.8 mg/dL Normal 8.5-10.2 [facility] Comment on above: Order Comment: Speci men Type: BLOOD SPECIMENOrdering Facility: [facility] Address: [address] [place] [address] Performed By: #### 2 4321-2, ####[facility] LABORATORYCLIA [id number] [place] [address] [place] Chloride [Moles/Vol] 104 mmol/L Normal 97-105 [facility] Comment on above: Order Comment: Speci men Type: BLOOD SPECIMENOrdering Facility: [facility] Address: [address] [place] [address] Performed By: #### 2 4321-2, ####[facility] LABORATORYCLIA [id number] [address] [place] CO2 [Moles/Vol] 26 mmol/L Normal 22-30 [facility] Comment on above: Order Comment: Speci men Type: BLOOD SPECIMENOrdering Facility: [facility] Address: [address] [place] [address] Performed By: #### 2 4320-2, ####[facility] LABORATORYCLIA [id number] [place] [address] [place] Creatinine [Mass/Vol] 0.57 mg/dL Low 0.73-1.22 [facility] Comment on above: Order Comment: Speci men Type: BLOOD SPECIMENOrdering Facility: [facility] Address: [address] [place] [address] Performed By: #### 2 4320-2, ####[facility] LABORATORYCLIA [id number] [address] [place] GFR/1.73 sq M.predicted MDRD (S/P/Bld) [Vol rate/Area] mL/min/{1.73_m2} Normal [facility] Comment on above: Order Comment: Speci men Type: BLOOD SPECIMENOrdering Facility: [facility] Address: [address] [place], [place] [address] Result Comment: >60e GFR (Estimated GFR) Units [...] actual GFR. Performed By: #### 2 4321-2, 61826-0 ####[facility] LABORATORYCLIA [id number] [place] [address] [place] Glucose [Mass/Vol] 133 mg/dL High 74-99 [facility] Comment on above: Order Comment: Shira feldman Type: BLOOD SPECIMENOrdering Facility: [facility] Address: [address] [place] [address] Result Comment: The [place] Diabetes Association (ADA) provides guidance for cutoff [...] Standards of Medical Care in Diabetes 2016, [place] [employer]. Diabetes Care. 2016.39(Suppl 1). Performed By: #### 2 4321-2, 47771-8 ####[facility] LABORATORYCLIA [id number] [place] [address] [place] Potassium [Moles/Vol] 4.2 mmol/L Normal 3.7-5.1 [facility] Comment on above: Order Comment: Speci men Type: BLOOD SPECIMENOrdering Facility: [facility] Address: [address] [place] [address] Performed By: #### 2 4321-2, 41437-9 ####[facility] LABORATORYCLIA [id number] [address] Sodium [Moles/Vol] 140 mmol/L Normal 136-144 [facility] Comment on above: Order Comment: Speci men Type: BLOOD SPECIMENOrdering Facility: [facility] Address: [address] [place] [address] Performed By: #### 2 4321-2, ####[facility] LABORATORYCLIA [id number] [address] STATES OF [facility] Urea nitrogen [Mass/Vol] 24 mg/dL Normal 9-24 [facility] Comment on above: Order Comment: Speci men Type: BLOOD SPECIMENOrdering Facility: [facility] Address: [address] [place] [address] Performed By: #### 2 432-2, ####[facility] LABORATORYCLIA [id number] [address] CASE MANAGEMon 06-27-2021 CASE MANAGEM Normal [facility] CBC panel Auto (Bld)on 06-27 Erythrocyte distribution width (RBC) [Ratio] 15.8 % High 11.5-15.0 [facility] Comment on above: Order Comment: Speci men Type: BLOOD SPECIMENOrdering Facility: [facility] Address: [address] [place] [address] Performed By: #### 5 8410-2 ####[facility] LABORATORYCLIA [id number] [address] Hematocrit (Bld) [Volume fraction] 31.4 % Low 39.0-51.0 [facility] Comment on above: Order Comment: Speci men Type: BLOOD SPECIMENOrdering Facility: [facility] Address: [address] [place] [address] Performed By: #### 5 8410-2 ####[facility] LABORATORYCLIA [id number] [address] Hemoglobin (Bld) [Mass/Vol] 9.3 g/dL Low 13.0-17.0 [facility] Comment on above: Order Comment: Speci men Type: BLOOD SPECIMENOrdering Facility: [facility] Address: [address] [place] [address] Performed By: #### 5 8410-2 ####[facility] LABORATORYCLIA [id number] [address] MCH (RBC) [Entitic mass] 27.0 pg Normal 26.0-34.0 [facility] Comment on above: Order Comment: Speci men Type: BLOOD SPECIMENOrdering Facility: [facility] Address: [address] [place] [address] Performed By: #### 5 8410-2 ####[facility] LABORATORYCLIA [id number] [address] MCHC (RBC) [Mass/Vol] 29.6 g/dL Low 30.5-36.0 [facility] Comment on above: Order Comment: Speci men Type: BLOOD SPECIMENOrdering Facility: [facility] Address: [address] [place] [address] Performed By: #### 5 8410-2 ####[facility] LABORATORYCLIA [id number] [address] MCV (RBC) [Entitic vol] 91.3 fL Normal 80.0-100.0 [facility] Comment on above: Order Comment: Speci men Type: BLOOD SPECIMENOrdering Facility: [facility] Address: [address] [place] [address] Performed By: #### 5 8410-2 ####[facility] LABORATORYCLIA [id number] [address] Nucleated RBC (Bld) [#/Vol] 10*3/uL Normal <0.01 [facility] Comment on above: Order Comment: Speci men Type: BLOOD SPECIMENOrdering Facility: [facility] Address: [address] [place] [address] Performed By: #### 5 8410-2 ####[facility] LABORATORYCLIA [id number] [address] [place] Platelet mean volume (Bld) [Entitic vol] 10.3 fL Normal 9.0-12.7 [facility] Comment on above: Order Comment: Speci men Type: BLOOD SPECIMENOrdering Facility: [facility] Address: [address] [place] [address] Performed By: #### 5 8410-2 ####[facility] LABORATORYCLIA [id number] [address] [place] Platelets (Bld) [#/Vol] 359 10*3/uL Normal 150-400 [facility] Comment on above: Order Comment: Speci men Type: BLOOD SPECIMENOrdering Facility: [facility] Address: [address] [place] [address] Performed By: #### 5 8410-2 ####[facility] LABORATORYCLIA [id number] [place] [address] [place] RBC (Bld) [#/Vol] 3.44 10*6/uL Low 4.20-6.00 [facility] Comment on above: Order Comment: Speci men Type: BLOOD SPECIMENOrdering Facility: [facility] Address: [address] [place], [place] [address] Performed By: #### 5 8410-2 ####[facility] LABORATORYCLIA [id number] [place] [address] [place] WBC (Bld) [#/Vol] 10.73 10*3/uL Normal 3.70-11.00 [facility] Comment on above: Order Comment: Speci men Type: BLOOD SPECIMENOrdering Facility: [facility] Address: [address] [place] [address] Performed By: #### 5 8410-2 ####[facility] LABORATORYCLIA [id number] [place] [address] [place] Magnesium [facility] Magnesium [Mass/Vol] 2.2 mg/dL Normal 1.7-2.3 [facility] Comment on above: Order Comment: Speci men Type: BLOOD SPECIMENOrdering Facility: [facility] Address: [address] [place] [address] Performed By: #### 2 4321-2, 52077-7 ####[facility] LABORATORYCLIA [id number] [place] [address] [place] NT-proBNP SerPl-[facility]on [facility] Natriuretic peptide.B prohormone N-Terminal [Mass/Vol] 184 pg/mL High <125 [facility] Comment on above: Order Comment: Speci men Type: BLOOD SPECIMENOrdering Facility: [facility] Address: [address] [place] [address] Performed By: #### 3 3762-6 ####[facility] LABORATORYCLIA [id number] [place] [address] [place] NUTRITIONon 06-27-2021 NUTRITION Normal [facility] THERAPY NTon 06-27-2021 THERAPY NT Normal [facility] THERAPY NT Normal [facility] XR CHEST 1V FRONTALon 2021 XR CHEST 1V FRONTAL Normal [facility] Basic metabolic 2000 panelon 06-26-2021 Anion gap [Moles/Vol] 9 mmol/L Normal 9-18 [facility] Comment on above: Order Comment: Speci men Type: BLOOD SPECIMENOrdering Facility: [facility] Address: [address] [place] [address] Performed By: #### 1 9123-9, 43559-9 ####[facility] LABORATORYCLIA [id number] [place] [address] [place] Calcium [Mass/Vol] 8.7 mg/dL Normal 8.5-10.2 [facility] Comment on above: Order Comment: Speci men Type: BLOOD SPECIMENOrdering Facility: [facility] Address: [address] [address] Performed By: #### 1 9123-9, 86192-8 ####[facility] LABORATORYCLIA [id number] [address] [place] Chloride [Moles/Vol] 105 mmol/L Normal 97-105 [facility] Comment on above: Order Comment: Speci men Type: BLOOD SPECIMENOrdering Facility: [facility] Address: [address] [place] [address] Performed By: #### 1 9123-9, 96832-1 ####[facility] LABORATORYCLIA [id number] [address] [place] CO2 [Moles/Vol] 26 mmol/L Normal 22-30 [facility] Comment on above: Order Comment: Speci men Type: BLOOD SPECIMENOrdering Facility: [facility] Address: [address] [place] [address] Performed By: #### 1 9123-9, 63322-4 ####[facility] LABORATORYCLIA [id number] [place] [address] [place] Creatinine [Mass/Vol] 0.56 mg/dL Low 0.73-1.22 [facility] Comment on above: Order Comment: Speci men Type: BLOOD SPECIMENOrdering Facility: [facility] Address: [address] [place] [address] Performed By: #### 1 9123-9, 15589-0 ####[facility] LABORATORYCLIA [id number] [place] [address] [place] GFR/1.73 sq M.predicted MDRD (S/P/Bld) [Vol rate/Area] mL/min/{1.73_m2} Normal [facility] Comment on above: Order Comment: Speci men Type: BLOOD SPECIMENOrdering Facility: [facility] Address: [address] [place] [address] Result Comment: >60e GFR (Estimated GFR) Units [...] actual GFR. Performed By: #### 1 9123-9, 22563-2 ####[facility]ITALCLIA [id number] [place] [address] [place] Glucose [Mass/Vol] 134 mg/dL High 74-99 [facility] Comment on above: Order Comment: Shira feldman Type: BLOOD SPECIMENOrdering Facility: [facility] Address: [address] [place] [address] Result Comment: The [place] Diabetes [employer] (ADA) provides guidance for cutoff [...] Standards of Medical Care in Diabetes 2016, [place] [employer]. Diabetes Care. 2016.39(Suppl 1). Performed By: #### 1 9123-9, 89423-4 ####[facility] LABORATORYCLIA [id number] [place] [address] [place] Potassium [Moles/Vol] 3.8 mmol/L Normal 3.7-5.1 [facility] Comment on above: Order Comment: Shira feldman Type: BLOOD SPECIMENOrdering Facility: [facility] Address: [address] [place], [place] [phone] Performed By: #### 1 9123-9, 15616-6 ####[facility] LABORATORYCLIA [id number] [address] [facility] Sodium [Moles/Vol] 140 mmol/L Normal 136-144 [facility] Comment on above: Order Comment: Speci men Type: BLOOD SPECIMENOrdering Facility: [facility] [facility] Address: [address] [place] [address] Performed By: #### 1 9123-9, 96870-1 ####[facility] LABORATORYCLIA [id number] [address] [place] Urea nitrogen [Mass/Vol] 24 mg/dL Normal 9-24 [facility] Comment on above: Order Comment: Speci men Type: BLOOD SPECIMENOrdering Facility: [facility] Address: [address] [place] [address] Performed By: #### 1 9123-9, 32725-3 ####[facility] LABORATORYCLIA [id number] [address] [facility] CBC panel Auto (Bld)on 06-26 Erythrocyte distribution width (RBC) [Ratio] 15.9 % High 11.5-15.0 [facility] Comment on above: Order Comment: Speci men Type: BLOOD SPECIMENOrdering Facility: [facility] Address: [address] [place] [address] Performed By: #### 5 8410-2 ####[facility] LABORATORYCLIA [id number] [address] [facility] Hematocrit (Bld) [Volume fraction] 29.8 % Low 39.0-51.0 [facility] Comment on above: Order Comment: Speci men Type: BLOOD SPECIMENOrdering Facility: [facility] Address: [address] [place] [address] Performed By: #### 5 8410-2 ####[facility] LABORATORYCLIA [id number] [address] [place] Hemoglobin (Bld) [Mass/Vol] 9.1 g/dL Low 13.0-17.0 [facility] Comment on above: Order Comment: Speci men Type: BLOOD SPECIMENOrdering Facility: [facility] Address: [address] [place] [address] Performed By: #### 5 8410-2 ####[facility] LABORATORYCLIA [id number] [address] MCH (RBC) [Entitic mass] 27.8 pg Normal 26.0-34.0 [facility] Comment on above: Order Comment: Speci men Type: BLOOD SPECIMENOrdering Facility: [facility] Address: [address] [place] [address] Performed By: #### 5 8410-2 ####[facility] LABORATORYCLIA [id number] [address] MCHC (RBC) [Mass/Vol] 30.5 g/dL Normal 30.5-36.0 [facility] Comment on above: Order Comment: Speci men Type: BLOOD SPECIMENOrdering Facility: [facility] Address: [address] [place] [address] Performed By: #### 5 8410-2 ####[facility] LABORATORYCLIA [id number] [address] MCV (RBC) [Entitic vol] 91.1 fL Normal 80.0-100.0 [facility] Comment on above: Order Comment: Speci men Type: BLOOD SPECIMENOrdering Facility: [facility] Address: [address] [place] [address] Performed By: #### 5 8410-2 ####[facility] LABORATORYCLIA [id number] [address] Nucleated RBC (Bld) [#/Vol] 10*3/uL Normal <0.01 [facility] Comment on above: Order Comment: Speci men Type: BLOOD SPECIMENOrdering Facility: [facility] Address: [address] [place] [address] Performed By: #### 5 8410-2 ####[facility] LABORATORYCLIA [id number] [address] [place] Platelet mean volume (Bld) [Entitic vol] 10.3 fL Normal 9.0-12.7 [facility] Comment on above: Order Comment: Speci men Type: BLOOD SPECIMENOrdering Facility: [facility] Address: [address] [place] [address] Performed By: #### 5 8410-2 ####[facility] LABORATORYCLIA [id number] [address] [place] Platelets (Bld) [#/Vol] 336 10*3/uL Normal 150-400 [facility] Comment on above: Order Comment: Speci men Type: BLOOD SPECIMENOrdering Facility: [facility] Address: [address] [place] [address] Performed By: #### 5 8410-2 ####[facility] LABORATORYCLIA [id number] [address] [place] RBC (Bld) [#/Vol] 3.27 10*6/uL Low 4.20-6.00 [facility] Comment on above: Order Comment: Speci men Type: BLOOD SPECIMENOrdering Facility: [facility] Address: [address] [place] [address] Performed By: #### 5 8410-2 ####[facility] LABORATORYCLIA [id number] [address] [place] WBC (Bld) [#/Vol] 9.14 10*3/uL Normal 3.70-11.00 [facility] Comment on above: Order Comment: Speci men Type: BLOOD SPECIMENOrdering Facility: [facility] Address: [address] [place] [address] Performed By: #### 5 8410-2 ####[facility] LABORATORYCLIA [id number] [address] [place] CONSULT PROGon 06-26-2021 CONSULT PROG Normal [facility] Magnesium SerPl-mCncon 02-20 -2022 Magnesium [Mass/Vol] 2.2 mg/dL Normal 1.7-2.3 [facility] Comment on above: Order Comment: Speci men Type: BLOOD SPECIMENOrdering Facility: [facility] Address: [address] [place] [address] Performed By: #### 1 9123-9, 09062-9 ####[facility] LABORATORYCLIA [id number] [address] [place] NURSING PROGon 06-26-2021 NURSING PROG Normal [facility] NURSING PROG Normal [facility] Basic metabolic 2000 panelon 06-25-2021 Anion gap [Moles/Vol] 8 mmol/L Low 9-18 [facility] Comment on above: Order Comment: Speci men Type: BLOOD SPECIMENOrdering Facility: [facility] Address: [address] [place] [address] Performed By: #### 2 4321-2, ####[facility] LABORATORYCLIA [id number] [place] [address] [place] Calcium [Mass/Vol] 8.8 mg/dL Normal 8.5-10.2 [facility] Comment on above: Order Comment: Speci men Type: BLOOD SPECIMENOrdering Facility: [facility] Address: [address] [place] [address] Performed By: #### 2 4321-2, ####[facility] LABORATORYCLIA [id number] [place] [address] [place] Chloride [Moles/Vol] 105 mmol/L Normal 97-105 [facility] Comment on above: Order Comment: Speci men Type: BLOOD SPECIMENOrdering Facility: [facility] Address: [address] [place] [address] Performed By: #### 2 4321-2, ####[facility] LABORATORYCLIA [id number] [place] [address] [place] CO2 [Moles/Vol] 27 mmol/L Normal 22-30 [facility] Comment on above: Order Comment: Speci francia Type: BLOOD SPECIMENOrdering Facility: [facility] Address: [address] [phone] Performed By: #### 2 432-, ####[facility] LABORATORYCLIA [id number] [place] [address] [place] Creatinine [Mass/Vol] 0.59 mg/dL Low 0.73-1.22 [facility] Comment on above: Order Comment: Speci men Type: BLOOD SPECIMENOrdering Facility: [facility] Address: [address] [place] [address] Performed By: #### 2 43205-08, ####[facility]PITALCLIA [id number] [place] [address] [place] GFR/1.73 sq M.predicted MDRD (S/P/Bld) [Vol rate/Area] mL/min/{1.73_m2} Normal [facility] Comment on above: Order Comment: Shira francia Type: BLOOD SPECIMENOrdering Facility: [facility] Address: [address] [place] [address] Result Comment: >60e GFR (Estimated GFR) Units [...] actual GFR. Performed By: #### 2 432-, ####[facility] LABORATORYCLIA [id number] [place] [address] [place] Glucose [Mass/Vol] 132 mg/dL High 74-99 [facility] Comment on above: Order Comment: Johncara feldman Type: BLOOD SPECIMENOrdering Facility: [facility] Address: [address] [place], [place] [phone] Result Comment: The [place] [employer] (ADA) provides guidance for cutoff [...] Standards of Medical Care in Diabetes 2016, [place] [employer]. Diabetes Care. 2016.39(Suppl 1). Performed By: #### 2 4320-06, ####[facility] LABORATORYCLIA [id number] [place] [address] [place] Potassium [Moles/Vol] 3.9 mmol/L Normal 3.7-5.1 [facility] Comment on above: Order Comment: Speci men Type: BLOOD SPECIMENOrdering Facility: [facility] Address: [address] [address] Performed By: #### 2 4320-06, ####[facility] LABORATORYCLIA [id number] [place] [address] [place] Sodium [Moles/Vol] 140 mmol/L Normal 136-144 [facility] Comment on above: Order Comment: Speci men Type: BLOOD SPECIMENOrdering Facility: [facility] Address: [address] [address] Performed By: #### 2 4320-06, ####[facility] LABORATORYCLIA [id number] [place] [address] [place] Urea nitrogen [Mass/Vol] 24 mg/dL Normal 9-24 [facility] Comment on above: Order Comment: Speci men Type: BLOOD SPECIMENOrdering Facility: [facility] Address: [address] [address] Performed By: #### 2 4320-06, 91776-2 ####[facility] LABORATORYCLIA [id number] [address] [place] CASE MANAGEMon 06-25-2021 CASE MANAGEM Normal [facility] CBC panel Auto (Bld)on 06-25 Erythrocyte distribution width (RBC) [Ratio] 15.9 % High 11.5-15.0 [facility] Comment on above: Order Comment: Speci men Type: BLOOD SPECIMENOrdering Facility: [facility] Address: [address] [place] [address] Performed By: #### 5 8410-2 ####[facility] LABORATORYCLIA [id number] [address] Hematocrit (Bld) [Volume fraction] 31.0 % Low 39.0-51.0 [facility] Comment on above: Order Comment: Speci men Type: BLOOD SPECIMENOrdering Facility: [facility] Address: [address] [place] [address] Performed By: #### 5 8410-2 ####[facility] LABORATORYCLIA [id number] [address] Hemoglobin (Bld) [Mass/Vol] 9.4 g/dL Low 13.0-17.0 [facility] Comment on above: Order Comment: Speci men Type: BLOOD SPECIMENOrdering Facility: [facility] Address: [address] [place] [address] Performed By: #### 5 8410-2 ####[facility] LABORATORYCLIA [id number] [address] [place] MCH (RBC) [Entitic mass] 28.1 pg Normal 26.0-34.0 [facility] Comment on above: Order Comment: Speci men Type: BLOOD SPECIMENOrdering Facility: [facility] Address: [address] [place] [address] Performed By: #### 5 8410-2 ####[facility] LABORATORYCLIA [id number] [address] [place] MCHC (RBC) [Mass/Vol] 30.3 g/dL Low 30.5-36.0 [facility] Comment on above: Order Comment: Speci men Type: BLOOD SPECIMENOrdering Facility: [facility] Address: [address] [place] [address] Performed By: #### 5 8410-2 ####[facility] LABORATORYCLIA [id number] [address] [place] MCV (RBC) [Entitic vol] 92.5 fL Normal 80.0-100.0 [facility] Comment on above: Order Comment: Speci men Type: BLOOD SPECIMENOrdering Facility: [facility] Address: [address] [place] [address] Performed By: #### 5 8410-2 ####[facility] LABORATORYCLIA [id number] [address] STATES OF [facility] Nucleated RBC (Bld) [#/Vol] 10*3/uL Normal <0.01 [facility] Comment on above: Order Comment: Speci men Type: BLOOD SPECIMENOrdering Facility: [facility] Address: [address] [place] [address] Performed By: #### 5 8410-2 ####[facility] LABORATORYCLIA [id number] [address] [place] Platelet mean volume (Bld) [Entitic vol] 10.5 fL Normal 9.0-12.7 [facility] Comment on above: Order Comment: Speci men Type: BLOOD SPECIMENOrdering Facility: [facility] Address: [address] [place] [address] Performed By: #### 5 8410-2 ####[facility] LABORATORYCLIA [id number] [address] [place] Platelets (Bld) [#/Vol] 311 10*3/uL Normal 150-400 [facility] Comment on above: Order Comment: Speci men Type: BLOOD SPECIMENOrdering Facility: [facility] Address: [address] [place] [address] Performed By: #### 5 8410-2 ####[facility] LABORATORYCLIA [id number] [address] STATES OF [facility] RBC (Bld) [#/Vol] 3.35 10*6/uL Low 4.20-6.00 [facility] Comment on above: Order Comment: Speci men Type: BLOOD SPECIMENOrdering Facility: [facility] Address: [address] [place] [address] Performed By: #### 5 8410-2 ####[facility] LABORATORYCLIA [id number] [address] OF [facility] WBC (Bld) [#/Vol] 9.57 10*3/uL Normal 3.70-11.00 [facility] Comment on above: Order Comment: Speci men Type: BLOOD SPECIMENOrdering Facility: [facility] Address: [address] [place] [address] Performed By: #### 5 8410-2 ####[facility] LABORATORYCLIA [id number] [address] [place] Magnesium SerPl-mCncon 06-25 Magnesium [Mass/Vol] 2.4 mg/dL High 1.7-2.3 [facility] Comment on above: Order Comment: Speci men Type: BLOOD SPECIMENOrdering Facility: [facility] Address: [address] [place] [address] Performed By: #### 2 4321-2, 71801-0 ####[facility] LABORATORYCLIA [id number] [address] [place] Basic metabolic 2000 panelon 06-24-2021 Anion gap [Moles/Vol] 9 mmol/L Normal -18 [facility] Comment on above: Order Comment: Speci men Type: BLOOD SPECIMENOrdering Facility: [facility] Address: [address] [place] [address] Performed By: #### 1 9123-9, 47567-7 ####[facility] LABORATORYCLIA [id number] [place] [address] [place] Calcium [Mass/Vol] 8.6 mg/dL Normal 8.5-10.2 [facility] Comment on above: Order Comment: Speci men Type: BLOOD SPECIMENOrdering Facility: [facility] Address: [address] [place] [address] Performed By: #### 1 9123-9, 54347-9 ####[facility] LABORATORYCLIA [id number] [place] [address] [place] Chloride [Moles/Vol] 103 mmol/L Normal 97-105 [facility] Comment on above: Order Comment: Speci men Type: BLOOD SPECIMENOrdering Facility: [facility] Address: [address] [place] [address] Performed By: #### 1 9123-9, 63973-3 ####[facility] LABORATORYCLIA [id number] [address] [place] CO2 [Moles/Vol] 26 mmol/L Normal 22-30 [facility] Comment on above: Order Comment: Speci men Type: BLOOD SPECIMENOrdering Facility: [facility] Address: [address] [place] [address] Performed By: #### 1 9123-9, 84514-8 ####[facility] LABORATORYCLIA [id number] [place] [address] [place] Creatinine [Mass/Vol] 0.60 mg/dL Low 0.73-1.22 [facility] Comment on above: Order Comment: Speci men Type: BLOOD SPECIMENOrdering Facility: [facility] Address: [address] [place] [address] Performed By: #### 1 9123-9, 93417-7 ####[facility] LABORATORYCLIA [id number] [place] [address] [place] GFR/1.73 sq M.predicted MDRD (S/P/Bld) [Vol rate/Area] mL/min/{1.73_m2} Normal [facility] Comment on above: Order Comment: Shira feldman Type: BLOOD SPECIMENOrdering Facility: [facility] Address: [address] [place], [place] [phone] Result Comment: >60e GFR (Estimated GFR) Units [...] actual GFR. Performed By: #### 1 9123-9, 80693-1 ####[facility] LABORATORYCLIA [id number] [place] [address] [place] Glucose [Mass/Vol] 126 mg/dL High 74-99 [facility] Comment on above: Order Comment: Johncara feldman Type: BLOOD SPECIMENOrdering Facility: [facility] Address: [address] [phone] Result Comment: The [place] [employer] (ADA) provides guidance for cutoff [...] Standards of Medical Care in Diabetes 2016, [place] [employer]. Diabetes Care. 2016.39(Suppl 1). Performed By: #### 1 9123-9, 79121-7 ####[facility] LABORATORYCLIA [id number] [place] [address] [place] Potassium [Moles/Vol] 3.9 mmol/L Normal 3.7-5.1 [facility] Comment on above: Order Comment: Speci men Type: BLOOD SPECIMENOrdering Facility: [facility] Address: [address] [place] [address] Performed By: #### 1 9123-9, 32788-2 ####[facility] LABORATORYCLIA [id number] [address] STATES OF [facility] Sodium [Moles/Vol] 138 mmol/L Normal 136-144 [facility] Comment on above: Order Comment: Speci men Type: BLOOD SPECIMENOrdering Facility: [facility] Address: [address] [place] [address] Performed By: #### 1 9123-9, 40235-4 ####[facility] LABORATORYCLIA [id number] [address] [place] Urea nitrogen [Mass/Vol] 24 mg/dL Normal 9-24 [facility] Comment on above: Order Comment: Speci men Type: BLOOD SPECIMENOrdering Facility: [facility] Address: [address] [place] [address] Performed By: #### 1 9123-9, 80457-5 ####[facility] LABORATORYCLIA [id number] [address] OF [facility] CASE MANAGEMon 06-24-2021 CASE MANAGEM Normal [facility] CASE MANAGEM Normal [facility] CASE MANAGEM Normal [facility] CBC panel Auto (Bld)on 06-24 Erythrocyte distribution width (RBC) [Ratio] 16.1 % High 11.5-15.0 [facility] Comment on above: Order Comment: Speci men Type: BLOOD SPECIMENOrdering Facility: [facility] Address: [address] [place] [address] Performed By: #### 5 8410-2 ####[facility] LABORATORYCLIA [id number] [address] [place] Hematocrit (Bld) [Volume fraction] 31.7 % Low 39.0-51.0 [facility] Comment on above: Order Comment: Speci men Type: BLOOD SPECIMENOrdering Facility: [facility] Address: [address] [place] [address] Performed By: #### 5 8410-2 ####[facility] LABORATORYCLIA [id number] [address] Hemoglobin (Bld) [Mass/Vol] 9.7 g/dL Low 13.0-17.0 [facility] Comment on above: Order Comment: Speci men Type: BLOOD SPECIMENOrdering Facility: [facility] Address: [address] [place] [address] Performed By: #### 5 8410-2 ####[facility] LABORATORYCLIA [id number] [address] MCH (RBC) [Entitic mass] 28.0 pg Normal 26.0-34.0 [facility] Comment on above: Order Comment: Speci men Type: BLOOD SPECIMENOrdering Facility: [facility] Address: [address] [place] [address] Performed By: #### 5 8410-2 ####[facility] LABORATORYCLIA [id number] [address] MCHC (RBC) [Mass/Vol] 30.6 g/dL Normal 30.5-36.0 [facility] Comment on above: Order Comment: Speci men Type: BLOOD SPECIMENOrdering Facility: [facility] Address: [address] [place] [address] Performed By: #### 5 8410-2 ####[facility] LABORATORYCLIA [id number] [address] MCV (RBC) [Entitic vol] 91.4 fL Normal 80.0-100.0 [facility] Comment on above: Order Comment: Speci men Type: BLOOD SPECIMENOrdering Facility: [facility] Address: [address] [place] [address] Performed By: #### 5 8410-2 ####[facility] LABORATORYCLIA [id number] [address] Nucleated RBC (Bld) [#/Vol] 10*3/uL Normal <0.01 [facility] Comment on above: Order Comment: Speci men Type: BLOOD SPECIMENOrdering Facility: [facility] Address: [address] [place] [address] Performed By: #### 5 8410-2 ####[facility] LABORATORYCLIA [id number] [address] [place] Platelet mean volume (Bld) [Entitic vol] 11.0 fL Normal 9.0-12.7 [facility] Comment on above: Order Comment: Speci men Type: BLOOD SPECIMENOrdering Facility: [facility] Address: [address] [place] [address] Performed By: #### 5 8410-2 ####[facility] LABORATORYCLIA [id number] [address] Platelets (Bld) [#/Vol] 358 10*3/uL Normal 150-400 [facility] Comment on above: Order Comment: Speci men Type: BLOOD SPECIMENOrdering Facility: [facility] Address: [address] [place] [address] Performed By: #### 5 8410-2 ####[facility] LABORATORYCLIA [id number] [address] [place] RBC (Bld) [#/Vol] 3.47 10*6/uL Low 4.20-6.00 [facility] Comment on above: Order Comment: Speci men Type: BLOOD SPECIMENOrdering Facility: [facility] Address: [address] [place] [address] Performed By: #### 5 8410-2 ####[facility] LABORATORYCLIA [id number] [address] [place] WBC (Bld) [#/Vol] 10.07 10*3/uL Normal 3.70-11.00 [facility] Comment on above: Order Comment: Speci men Type: BLOOD SPECIMENOrdering Facility: [facility] Address: [address] [place] [address] Performed By: #### 5 8410-2 ####[facility] LABORATORYCLIA [id number] [place] [address] [place] Magnesium SerPl-mCncon 06-24 Magnesium [Mass/Vol] 2.3 mg/dL Normal 1.7-2.3 [facility] Comment on above: Order Comment: Speci men Type: BLOOD SPECIMENOrdering Facility: [facility] Address: [address] [place] [address] Performed By: #### 1 9123-9, 72068-7 ####[facility] LABORATORYCLIA [id number] [place] [address] [place] ALLIED HEALTHon 06-23-2021 ALLIED HEALTH Normal [facility] Basic metabolic 2000 panelon 06-23-2021 Anion gap [Moles/Vol] 9 mmol/L Normal 9-18 [facility] Comment on above: Order Comment: Speci men Type: BLOOD SPECIMENOrdering Facility: [facility] Address: [address] [place] [address] Performed By: #### 1 9123-9, 53590-6 ####[facility] LABORATORYCLIA [id number] [place] [address] [place] Calcium [Mass/Vol] 8.4 mg/dL Low 8.5-10.2 [facility] Comment on above: Order Comment: Speci men Type: BLOOD SPECIMENOrdering Facility: [facility] Address: [address] [place], [place] [id number] Performed By: #### 1 9123-9, 66621-7 ####[facility] LABORATORYCLIA [id number] [place] [address] [place] Chloride [Moles/Vol] 104 mmol/L Normal 97-105 [facility] Comment on above: Order Comment: Speci men Type: BLOOD SPECIMENOrdering Facility: [facility] Address: [address] [place] [address] Performed By: #### 1 [id number], ####[facility] LABORATORYCLIA [id number] [place] [address] [place] [facility] CENTER CO2 [Moles/Vol] 26 mmol/L Normal 22-30 [facility] Comment on above: Order Comment: Speci men Type: BLOOD SPECIMENOrdering Facility: [facility] Address: [address] [place] [address] Performed By: #### 1 919, ####[facility]ITALCLIA [id number] [place] [address] [place] Creatinine [Mass/Vol] 0.62 mg/dL Low 0.73-1.22 [facility] Comment on above: Order Comment: Speci men Type: BLOOD SPECIMENOrdering Facility: [facility] Address: [address] [place] [address] Performed By: #### 1 91239, ####[facility]ITALCLIA [id number] [address] [place] GFR/1.73 sq M.predicted MDRD (S/P/Bld) [Vol rate/Area] mL/min/{1.73_m2} Normal [facility] Comment on above: Order Comment: Speci men Type: BLOOD SPECIMENOrdering Facility: [facility] Address: [address] [place] [address] Result Comment: >60e GFR (Estimated GFR) Units [...] actual GFR. Performed By: #### 1 9123-9, 89954-1 ####[facility] LABORATORYCLIA [id number] [place] [address] [place] Glucose [Mass/Vol] 111 mg/dL High 74-99 [facility] Comment on above: Order Comment: Shira men Type: BLOOD SPECIMENOrdering Facility: [facility] Address: [address] [place] [address] Result Comment: The [place] Diabetes [employer] (ADA) provides guidance for cutoff [...] Standards of Medical Care in Diabetes 2016, [place] [employer]. Diabetes Care. 2016.39(Suppl 1). Performed By: #### 1 9123-9, 14166-4 ####[facility] LABORATORYCLIA [id number] [place] [address] [place] Potassium [Moles/Vol] 4.1 mmol/L Normal 3.7-5.1 [facility] Comment on above: Order Comment: Shira feldman Type: BLOOD SPECIMENOrdering Facility: [facility] Address: [address] [place] [address] Performed By: #### 1 9123-9, 51672-3 ####[facility] LABORATORYCLIA [id number] [place] [address] [place] Sodium [Moles/Vol] 139 mmol/L Normal 136-144 [facility] Comment on above: Order Comment: Shira francia Type: BLOOD SPECIMENOrdering Facility: [facility] Address: [address] [place] [address] Performed By: #### 1 9123-9, 02688-8 ####[facility] LABORATORYCLIA [id number] [place] [address] [place] Urea nitrogen [Mass/Vol] 26 mg/dL High 9-24 [facility] Comment on above: Order Comment: Speci men Type: BLOOD SPECIMENOrdering Facility: [facility] Address: [address] [place] [address] Performed By: #### 1 9123-9, 71031-1 ####[facility] LABORATORYCLIA [id number] [address] [place] CASE MANAGEMon 06-23-2021 CASE MANAGEM Normal [facility] CBC panel Auto (Bld)on 06-23 Erythrocyte distribution width (RBC) [Ratio] 16.0 % High 11.5-15.0 [facility] Comment on above: Order Comment: Speci men Type: BLOOD SPECIMENOrdering Facility: [facility] Address: [address] [place] [address] Performed By: #### 5 8410-2 ####[facility] LABORATORYCLIA [id number] [address] [place] Hematocrit (Bld) [Volume fraction] 31.1 % Low 39.0-51.0 [facility] Comment on above: Order Comment: Speci men Type: BLOOD SPECIMENOrdering Facility: [facility] Address: [address] [place] [address] Performed By: #### 5 8410-2 ####[facility] LABORATORYCLIA [id number] [place] [address] [place] Hemoglobin (Bld) [Mass/Vol] 9.5 g/dL Low 13.0-17.0 [facility] Comment on above: Order Comment: Speci men Type: BLOOD SPECIMENOrdering Facility: [facility] Address: [address] [place] [address] Performed By: #### 5 8410-2 ####[facility] LABORATORYCLIA [id number] [address] [place] MCH (RBC) [Entitic mass] 28.1 pg Normal 26.0-34.0 [facility] Comment on above: Order Comment: Speci men Type: BLOOD SPECIMENOrdering Facility: [facility] Address: [address] [place] [address] Performed By: #### 5 8410-2 ####[facility] LABORATORYCLIA [id number] [address] MCHC (RBC) [Mass/Vol] 30.5 g/dL Normal 30.5-36.0 [facility] Comment on above: Order Comment: Speci men Type: BLOOD SPECIMENOrdering Facility: [facility] Address: [address] [place] [address] Performed By: #### 5 8410-2 ####[facility] LABORATORYCLIA [id number] [address] MCV (RBC) [Entitic vol] 92.0 fL Normal 80.0-100.0 [facility] Comment on above: Order Comment: Speci men Type: BLOOD SPECIMENOrdering Facility: [facility] Address: [address] [place] [address] Performed By: #### 5 8410-2 ####[facility] LABORATORYCLIA [id number] [address] Nucleated RBC (Bld) [#/Vol] 10*3/uL Normal <0.01 [facility] Comment on above: Order Comment: Speci men Type: BLOOD SPECIMENOrdering Facility: [facility] Address: [address] [place] [address] Performed By: #### 5 8410-2 ####[facility] LABORATORYCLIA [id number] [address] Platelet mean volume (Bld) [Entitic vol] 11.0 fL Normal 9.0-12.7 [facility] Comment on above: Order Comment: Speci men Type: BLOOD SPECIMENOrdering Facility: [facility] Address: [address] [place] [address] Performed By: #### 5 8410-2 ####[facility] LABORATORYCLIA [id number] [address] [facility] Platelets (Bld) [#/Vol] 361 10*3/uL Normal 150-400 [facility] Comment on above: Order Comment: Speci men Type: BLOOD SPECIMENOrdering Facility: [facility] Address: [address] [place] [address] Performed By: #### 5 8410-2 ####[facility] LABORATORYCLIA [id number] [place] [address] [place] RBC (Bld) [#/Vol] 3.38 10*6/uL Low 4.20-6.00 [facility] Comment on above: Order Comment: Speci men Type: BLOOD SPECIMENOrdering Facility: [facility] Address: [address] [place] [address] Performed By: #### 5 8410-2 ####[facility] LABORATORYCLIA [id number] [address] WBC (Bld) [#/Vol] 9.02 10*3/uL Normal 3.70-11.00 [facility] Comment on above: Order Comment: Speci men Type: BLOOD SPECIMENOrdering Facility: [facility] Address: [address] [place] [address] Performed By: #### 5 8410-2 ####[facility] LABORATORYCLIA [id number] [address] CONSULT PROGon 06-23-2021 CONSULT PROG Normal [facility] CONSULT PROG Normal [facility] Magnesium SerPl-mCncon 06-23 Magnesium [Mass/Vol] 2.4 mg/dL High 1.7-2.3 [facility] Comment on above: Order Comment: Speci men Type: BLOOD SPECIMENOrdering Facility: [facility] Address: [address] [place] [address] Performed By: #### 1 9123-9, 21740-6 ####[facility] LABORATORYCLIA [id number] [address] THERAPY NTon 06-23-2021 THERAPY NT Normal [facility] Vancomycin random [Mass/Vol] on 06-23-2021 Vancomycin [Mass/Vol] 22.8 ug/mL High 10.0-20.0 [facility] Comment on above: Order Comment: Speci men Type: BLOOD SPECIMENOrdering Facility: [facility] Address: [address] [place] [address] Result Comment: Refe rence ranges and high/low indicator flags are provided as general guidelines only. The treating physician must determine appropriate target levels/dosing based on the specific clinical situation. Performed By: #### 4 091-5 ####[facility] LABORATORYCLIA [id number] [place] [address] [place] XR MOD BARIUM SWALLOW W SPEE Lore 06-23-2021 XR MOD BARIUM SWALLOW W SPEECH Normal [facility] Basic metabolic 2000 panelon 06-22-2021 Anion gap [Moles/Vol] 6 mmol/L Low 9-18 [facility] Comment on above: Order Comment: Speci men Type: BLOOD SPECIMENOrdering Facility: [facility] Address: [address] [place] [address] Performed By: #### 2 4321-2, ####[facility] LABORATORYCLIA [id number] [place] [address] [place] Calcium [Mass/Vol] 8.5 mg/dL Normal 8.5-10.2 [facility] Comment on above: Order Comment: Speci men Type: BLOOD SPECIMENOrdering Facility: [facility] Address: [address] [address] Performed By: #### 2 4321-2, ####[facility] LABORATORYCLIA [id number] [place] [address] [place] Chloride [Moles/Vol] 105 mmol/L Normal 97-105 [facility] Comment on above: Order Comment: Speci men Type: BLOOD SPECIMENOrdering Facility: [facility] Address: [address] [place] [address] Performed By: #### 2 43205-08, ####[facility] LABORATORYCLIA [id number] [place] [address] [place] CO2 [Moles/Vol] 26 mmol/L Normal 22-30 [facility] Comment on above: Order Comment: Speci men Type: BLOOD SPECIMENOrdering Facility: [facility] Address: [address] [place] [address] Performed By: #### 2 4320-06, ####[facility]ITALCLIA [id number] [place] [address] [place] Creatinine [Mass/Vol] 0.56 mg/dL Low 0.73-1.22 [facility] Comment on above: Order Comment: Speci men Type: BLOOD SPECIMENOrdering Facility: [facility] Address: [address] [place] [address] Performed By: #### 2 43205-08, ####[facility]ITALCLIA [id number] [address] [place] GFR/1.73 sq M.predicted MDRD (S/P/Bld) [Vol rate/Area] mL/min/{1.73_m2} Normal [facility] Comment on above: Order Comment: Speci men Type: BLOOD SPECIMENOrdering Facility: [facility] Address: [address] [place] [address] Result Comment: >60e GFR (Estimated GFR) Units [...] actual GFR. Performed By: #### 2 43205-08, ####[facility] LABORATORYCLIA [id number] [place] [address] [place] Glucose [Mass/Vol] 120 mg/dL High 74-99 [facility] Comment on above: Order Comment: Shira feldman Type: BLOOD SPECIMENOrdering Facility: [facility] Address: [address] [place] [address] Result Comment: The [place] Diabetes [employer] (ADA) provides guidance for cutoff [...] Standards of Medical Care in Diabetes 2016, [place] [employer]. Diabetes Care. 2016.39(Suppl 1). Performed By: #### 2 ####[facility] LABORATORYCLIA [id number] [place] [address] [place] Potassium [Moles/Vol] 4.0 mmol/L Normal 3.7-5.1 [facility] Comment on above: Order Comment: Shira feldman Type: BLOOD SPECIMENOrdering Facility: [facility] Address: [address] [place] [address] Performed By: #### 2 ####[facility] LABORATORYCLIA [id number] [place] [address] [place] Sodium [Moles/Vol] 137 mmol/L Normal 136-144 [facility] Comment on above: Order Comment: Shira feldman Type: BLOOD SPECIMENOrdering Facility: [facility] Address: [address] [place] [address] Performed By: #### 2 ####[facility] LABORATORYCLIA [id number] [place] [address] [place] Urea nitrogen [Mass/Vol] 25 mg/dL High 9-24 [facility] Comment on above: Order Comment: Speci men Type: BLOOD SPECIMENOrdering Facility: [facility] Address: [address] [place] [address] Performed By: #### 2 4321-2, 08956-4 ####[facility]ORATORYCLIA [id number] [address] [place] CASE MANAGEMon 06-22-2021 CASE MANAGEM Normal [facility] CBC panel Auto (Bld)on 06-22 Erythrocyte distribution width (RBC) [Ratio] 16.0 % High 11.5-15.0 [facility] Comment on above: Order Comment: Speci men Type: BLOOD SPECIMENOrdering Facility: [facility] Address: [address] [place] [address] Performed By: #### 5 8410-2 ####[facility] LABORATORYCLIA [id number] [address] [place] Hematocrit (Bld) [Volume fraction] 30.5 % Low 39.0-51.0 [facility] Comment on above: Order Comment: Speci men Type: BLOOD SPECIMENOrdering Facility: [facility] Address: [address] [place] [address] Performed By: #### 5 8410-2 ####[facility] LABORATORYCLIA [id number] [place] [address] [place] Hemoglobin (Bld) [Mass/Vol] 9.3 g/dL Low 13.0-17.0 [facility] Comment on above: Order Comment: Speci men Type: BLOOD SPECIMENOrdering Facility: [facility] Address: [address] [place] [address] Performed By: #### 5 8410-2 ####[facility] LABORATORYCLIA [id number] [address] [place] MCH (RBC) [Entitic mass] 28.4 pg Normal 26.0-34.0 [facility] Comment on above: Order Comment: Speci men Type: BLOOD SPECIMENOrdering Facility: [facility] Address: [address] [place] [address] Performed By: #### 5 8410-2 ####[facility] LABORATORYCLIA [id number] [address] MCHC (RBC) [Mass/Vol] 30.5 g/dL Normal 30.5-36.0 [facility] Comment on above: Order Comment: Speci men Type: BLOOD SPECIMENOrdering Facility: [facility] Address: [address] [place] [address] Performed By: #### 5 8410-2 ####[facility] LABORATORYCLIA [id number] [address] MCV (RBC) [Entitic vol] 93.3 fL Normal 80.0-100.0 [facility] Comment on above: Order Comment: Speci men Type: BLOOD SPECIMENOrdering Facility: [facility] Address: [address] [place] [address] Performed By: #### 5 8410-2 ####[facility] LABORATORYCLIA [id number] [address] Nucleated RBC (Bld) [#/Vol] 10*3/uL Normal <0.01 [facility] Comment on above: Order Comment: Speci men Type: BLOOD SPECIMENOrdering Facility: [facility] Address: [address] [place] [address] Performed By: #### 5 8410-2 ####[facility] LABORATORYCLIA [id number] [address] Platelet mean volume (Bld) [Entitic vol] 11.5 fL Normal 9.0-12.7 [facility] Comment on above: Order Comment: Speci men Type: BLOOD SPECIMENOrdering Facility: [facility] Address: [address] [place] [address] Performed By: #### 5 8410-2 ####[facility] LABORATORYCLIA [id number] [address] Platelets (Bld) [#/Vol] 346 10*3/uL Normal 150-400 [facility] Comment on above: Order Comment: Speci men Type: BLOOD SPECIMENOrdering Facility: [facility] Address: [address] [place] [address] Performed By: #### 5 8410-2 ####[facility] LABORATORYCLIA [id number] [place] [address] [place] RBC (Bld) [#/Vol] 3.27 10*6/uL Low 4.20-6.00 [facility] Comment on above: Order Comment: Speci men Type: BLOOD SPECIMENOrdering Facility: [facility] Address: [address] [place] [address] Performed By: #### 5 8410-2 ####[facility] LABORATORYCLIA [id number] [address] OF [facility] WBC (Bld) [#/Vol] 9.44 10*3/uL Normal 3.70-11.00 [facility] Comment on above: Order Comment: Speci men Type: BLOOD SPECIMENOrdering Facility: [facility] Address: [address] [place] [address] Performed By: #### 5 8410-2 ####[facility] LABORATORYCLIA [id number] [address] [place] HEMOGLOBIN (HGB)on 2 Hemoglobin (Bld) [Mass/Vol] 9.7 g/dL Low 13.0-17.0 [facility] Comment on above: Order Comment: Speci men Type: BLOOD SPECIMENOrdering Facility: [facility] Address: [address] [place] [address] Performed By: #### H GB ####[facility] LABORATORYCLIA [id number] [address] OF [facility] Magnesium SerPl-mCncon 06-22 Magnesium [Mass/Vol] 2.4 mg/dL High 1.7-2.3 [facility] Comment on above: Order Comment: Speci men Type: BLOOD SPECIMENOrdering Facility: [facility] Address: [address] [place] [address] Performed By: #### 2 4321-2, ####[facility] LABORATORYCLIA [id number] [address] OF [facility] THERAPY NTon 06-22-2021 THERAPY NT Normal [facility] THERAPY NT Normal [facility] aPTT PPPon 06-22-2021 aPTT Coag (PPP) [Time] 62.3 s High 23.0-32.4 [facility] Comment on above: Order Comment: Speci men Type: BLOOD SPECIMENOrdering Facility: [facility] Address: [address] [place] [address] Performed By: #### 1 4979-9 ####[facility] LABORATORYCLIA [id number] [address] [place] ALLIED HEALTHon 06-21-2021 ALLIED HEALTH Normal [facility] Basic metabolic 2000 panelon 06-21-2021 Anion gap [Moles/Vol] 8 mmol/L Low 9-18 [facility] Comment on above: Order Comment: Speci men Type: BLOOD SPECIMENOrdering Facility: [facility] Address: [address] [place] [address] Performed By: #### 2 4321-2, ####[facility] LABORATORYCLIA [id number] [place] [address] [place] Calcium [Mass/Vol] 8.2 mg/dL Low 8.5-10.2 [facility] Comment on above: Order Comment: Speci men Type: BLOOD SPECIMENOrdering Facility: [facility] Address: [address] [place] [address] Performed By: #### 2 4321-2, ####[facility] LABORATORYCLIA [id number] [address] [place] Chloride [Moles/Vol] 108 mmol/L High 97-105 [facility] Comment on above: Order Comment: Speci men Type: BLOOD SPECIMENOrdering Facility: [facility] Address: [address] [place] [address] Performed By: #### 2 432-2, ####[facility] LABORATORYCLIA [id number] [address] STATES OF [facility] CO2 [Moles/Vol] 24 mmol/L Normal 22-30 [facility] Comment on above: Order Comment: Speci men Type: BLOOD SPECIMENOrdering Facility: [facility] Address: [address] [place] [address] Performed By: #### 2 4321-2, ####[facility] LABORATORYCLIA [id number] [address] OF [facility] Creatinine [Mass/Vol] 0.61 mg/dL Low 0.73-1.22 [facility] Comment on above: Order Comment: Speci men Type: BLOOD SPECIMENOrdering Facility: [facility] Address: [address] [place] [address] Performed By: #### 2 43205-08, ####[facility] LABORATORYCLIA [id number] [address] [place] GFR/1.73 sq M.predicted MDRD (S/P/Bld) [Vol rate/Area] mL/min/{1.73_m2} Normal [facility] Comment on above: Order Comment: Speci men Type: BLOOD SPECIMENOrdering Facility: [facility] Address: [address] [place] [address] Result Comment: >60e GFR (Estimated GFR) Units [...] actual GFR. Performed By: #### 2 432-, ####[facility] LABORATORYCLIA [id number] [place] [address] [place] Glucose [Mass/Vol] 211 mg/dL High 74-99 [facility] Comment on above: Order Comment: Shira [facility] Type: BLOOD SPECIMENOrdering Facility: [facility] Address: [address] [place] [address] Result Comment: The [place] [employer] (ADA) provides guidance for cutoff [...] Standards of Medical Care in Diabetes 2016, [place] [employer]. Diabetes Care. 2016.39(Suppl 1). Performed By: #### 2 43205-08, ####[facility] LABORATORYCLIA [id number] [place] [address] [place] Potassium [Moles/Vol] 4.3 mmol/L Normal 3.7-5.1 [facility] Comment on above: Order Comment: Shira [facility] Type: BLOOD SPECIMENOrdering Facility: [facility] Address: [address] Performed By: #### 2 43205-08, ####[facility] LABORATORYCLIA [id number] [place] [address] [place] Sodium [Moles/Vol] 140 mmol/L Normal 136-144 [facility] Comment on above: Order Comment: Shira feldman Type: BLOOD SPECIMENOrdering Facility: [facility] Address: [address] [address] Performed By: #### 2 1-2, ####[facility] LABORATORYCLIA [id number] [place] [address] [place] [facility] Urea nitrogen [Mass/Vol] 26 mg/dL High 9-24 [facility] Comment on above: Order Comment: Speci men Type: BLOOD SPECIMENOrdering Facility: [facility] Address: [address] [place] [address] Performed By: #### 2 4320-2, ####[facility] LABORATORYCLIA [id number] [address] CBC panel Auto (Bld)on 06-21 Erythrocyte distribution width (RBC) [Ratio] 16.1 % High 11.5-15.0 [facility] Comment on above: Order Comment: Speci men Type: BLOOD SPECIMENOrdering Facility: [facility] Address: [address] [place] [address] Performed By: #### 5 8410-2 ####[facility] LABORATORYCLIA [id number] [address] [facility] Hematocrit (Bld) [Volume fraction] 29.7 % Low 39.0-51.0 [facility] Comment on above: Order Comment: Speci men Type: BLOOD SPECIMENOrdering Facility: [facility] Address: [address] [place] [address] Performed By: #### 5 8410-2 ####[facility] LABORATORYCLIA [id number] [address] STATES OF [facility] Hemoglobin (Bld) [Mass/Vol] 9.2 g/dL Low 13.0-17.0 [facility] Comment on above: Order Comment: Speci men Type: BLOOD SPECIMENOrdering Facility: [facility] Address: [address] [place] [address] Performed By: #### 5 8410-2 ####[facility] LABORATORYCLIA [id number] [address] [place] MCH (RBC) [Entitic mass] 28.8 pg Normal 26.0-34.0 [facility] Comment on above: Order Comment: Speci men Type: BLOOD SPECIMENOrdering Facility: [facility] Address: [address] [place] [address] Performed By: #### 5 8410-2 ####[facility] LABORATORYCLIA [id number] [address] MCHC (RBC) [Mass/Vol] 31.0 g/dL Normal 30.5-36.0 [facility] Comment on above: Order Comment: Speci men Type: BLOOD SPECIMENOrdering Facility: [facility] Address: [address] [place] [address] Performed By: #### 5 8410-2 ####[facility] LABORATORYCLIA [id number] [address] MCV (RBC) [Entitic vol] 93.1 fL Normal 80.0-100.0 [facility] Comment on above: Order Comment: Speci men Type: BLOOD SPECIMENOrdering Facility: [facility] Address: [address] [place] [address] Performed By: #### 5 8410-2 ####[facility] LABORATORYCLIA [id number] [address] Nucleated RBC (Bld) [#/Vol] 10*3/uL Normal <0.01 [facility] Comment on above: Order Comment: Speci men Type: BLOOD SPECIMENOrdering Facility: [facility] Address: [address] [place] [address] Performed By: #### 5 8410-2 ####[facility] LABORATORYCLIA [id number] [address] Platelet mean volume (Bld) [Entitic vol] 11.6 fL Normal 9.0-12.7 [facility] Comment on above: Order Comment: Speci men Type: BLOOD SPECIMENOrdering Facility: [facility] Address: [address] [place] [address] Performed By: #### 5 8410-2 ####[facility] LABORATORYCLIA [id number] [place] [address] [place] Platelets (Bld) [#/Vol] 347 10*3/uL Normal 150-400 [facility] Comment on above: Order Comment: Speci men Type: BLOOD SPECIMENOrdering Facility: [facility] Address: [address] [place] [address] Performed By: #### 5 8410-2 ####[facility] LABORATORYCLIA [id number] [place] [address] [place] RBC (Bld) [#/Vol] 3.19 10*6/uL Low 4.20-6.00 [facility] Comment on above: Order Comment: Speci men Type: BLOOD SPECIMENOrdering Facility: [facility] Address: [address] [place] [address] Performed By: #### 5 8410-2 ####[facility] LABORATORYCLIA [id number] [address] OF [facility] WBC (Bld) [#/Vol] 10.29 10*3/uL Normal 3.70-11.00 [facility] Comment on above: Order Comment: Speci men Type: BLOOD SPECIMENOrdering Facility: [facility] Address: [address] [place] [address] Performed By: #### 5 8410-2 ####[facility] LABORATORYCLIA [id number] [address] [place] CONSULT PROGon 06-21-2021 CONSULT PROG Normal [facility] CONSULT PROG Normal [facility] Magnesium SerPl-mCncon 06-21 Magnesium [Mass/Vol] 2.5 mg/dL High 1.7-2.3 [facility] Comment on above: Order Comment: Speci men Type: BLOOD SPECIMENOrdering Facility: [facility] Address: [address] [place] [address] Performed By: #### 2 4321-2, 33541-7 ####[facility] LABORATORYCLIA [id number] [place] [address] [place] NUTRITIONon 06-21-2021 NUTRITION Normal [facility] XR CHEST 1V FRONTALon 2021 XR CHEST 1V FRONTAL Normal [facility] aPTT PPPon 06-21-2021 aPTT Coag (PPP) [Time] 68.5 s High 23.0-32.4 [facility] Comment on above: Order Comment: Speci men Type: BLOOD SPECIMENOrdering Facility: [facility] Address: [address] [place] [address] Performed By: #### 1 4979-9 ####[facility] LABORATORYCLIA [id number] [address] [place] aPTT Coag (PPP) [Time] 57.8 s High 23.0-32.4 [facility] Comment on above: Order Comment: Speci men Type: BLOOD SPECIMENOrdering Facility: [facility] Address: [address] [place] [address] Performed By: #### 1 4979-9 ####[facility] LABORATORYCLIA [id number] [place] [address] [place] Basic metabolic 2000 panelon 06-20-2021 Anion gap [Moles/Vol] 9 mmol/L Normal 9-18 [facility] Comment on above: Order Comment: Speci men Type: BLOOD SPECIMENOrdering Facility: [facility] Address: [address] [place] [address] Performed By: #### 2 4321-2, ####[facility] LABORATORYCLIA [id number] [place] [address] [place] Calcium [Mass/Vol] 8.3 mg/dL Low 8.5-10.2 [facility] Comment on above: Order Comment: Speci men Type: BLOOD SPECIMENOrdering Facility: [facility] Address: [address] [place] [address] Performed By: #### 2 4321-2, ####[facility] LABORATORYCLIA [id number] [address] [place] Chloride [Moles/Vol] 111 mmol/L High 97-105 [facility] Comment on above: Order Comment: Speci men Type: BLOOD SPECIMENOrdering Facility: [facility] Address: [address] [place] [address] Performed By: #### 2 4321-2, ####[facility] LABORATORYCLIA [id number] [place] [address] [place] CO2 [Moles/Vol] 24 mmol/L Normal 22-30 [facility] Comment on above: Order Comment: Speci men Type: BLOOD SPECIMENOrdering Facility: [facility] Address: [address] [place] [address] Performed By: #### 2 4321-2, ####[facility] LABORATORYCLIA [id number] [address] [place] Creatinine [Mass/Vol] 0.64 mg/dL Low 0.73-1.22 [facility] Comment on above: Order Comment: Speci men Type: BLOOD SPECIMENOrdering Facility: [facility] Address: [address] [place] [address] Performed By: #### 2 4321-2, ####[facility] LABORATORYCLIA [id number] [place] [address] [place] GFR/1.73 sq M.predicted MDRD (S/P/Bld) [Vol rate/Area] mL/min/{1.73_m2} Normal [facility] Comment on above: Order Comment: Speci men Type: BLOOD SPECIMENOrdering Facility: [facility] Address: [address] [place] [address] Result Comment: >60e GFR (Estimated GFR) Units [...] actual GFR. Performed By: #### 2 4320-06, ####[facility] LABORATORYCLIA [id number] [place] [address] [place] Glucose [Mass/Vol] 114 mg/dL High 74-99 [facility] Comment on above: Order Comment: Speci men Type: BLOOD SPECIMENOrdering Facility: [facility] Address: [address] [place], [place] [address] Result Comment: The [place] Diabetes [employer] (ADA) provides guidance for cutoff [...] Standards of Medical Care in Diabetes 2016, [place] [employer]. Diabetes Care. 2016.39(Suppl 1). Performed By: #### 2 4320-06, ####[facility] LABORATORYCLIA [id number] [place] [address] [place] Potassium [Moles/Vol] 4.1 mmol/L Normal 3.7-5.1 [facility] Comment on above: Order Comment: Speci men Type: BLOOD SPECIMENOrdering Facility: [facility] Address: [address] [place] [address] Performed By: #### 2 4320-06, ####[facility] LABORATORYCLIA [id number] [place] [address] [place] Sodium [Moles/Vol] 144 mmol/L Normal 136-144 [facility] Comment on above: Order Comment: Speci men Type: BLOOD SPECIMENOrdering Facility: [facility] Address: [address] [place] [address] Performed By: #### 2 4321-2, 26961-0 ####[facility] LABORATORYCLIA [id number] [address] [place] Urea nitrogen [Mass/Vol] 27 mg/dL High 9-24 [facility] Comment on above: Order Comment: Speci men Type: BLOOD SPECIMENOrdering Facility: [facility] Address: [address] [place] [address] Performed By: #### 2 4321-2, 14833-0 ####[facility] LABORATORYCLIA [id number] [address] [place] CASE MANAGEMon 06-20-2021 CASE MANAGEM Normal [facility] CBC panel Auto (Bld)on 06-20 Erythrocyte distribution width (RBC) [Ratio] 15.9 % High 11.5-15.0 [facility] Comment on above: Order Comment: Speci men Type: BLOOD SPECIMENOrdering Facility: [facility] Address: [address] [place] [address] Performed By: #### 5 8410-2 ####[facility] LABORATORYCLIA [id number] [address] [place] Hematocrit (Bld) [Volume fraction] 31.0 % Low 39.0-51.0 [facility] Comment on above: Order Comment: Speci men Type: BLOOD SPECIMENOrdering Facility: [facility] Address: [address] [place] [address] Performed By: #### 5 8410-2 ####[facility] LABORATORYCLIA [id number] [place] [address] [place] Hemoglobin (Bld) [Mass/Vol] 9.2 g/dL Low 13.0-17.0 [facility] Comment on above: Order Comment: Speci men Type: BLOOD SPECIMENOrdering Facility: [facility] Address: [address] [place] [address] Performed By: #### 5 8410-2 ####[facility] LABORATORYCLIA [id number] [address] MCH (RBC) [Entitic mass] 27.4 pg Normal 26.0-34.0 [facility] Comment on above: Order Comment: Speci men Type: BLOOD SPECIMENOrdering Facility: [facility] Address: [address] [place] [address] Performed By: #### 5 8410-2 ####[facility] LABORATORYCLIA [id number] [address] MCHC (RBC) [Mass/Vol] 29.7 g/dL Low 30.5-36.0 [facility] Comment on above: Order Comment: Speci men Type: BLOOD SPECIMENOrdering Facility: [facility] Address: [address] [place] [address] Performed By: #### 5 8410-2 ####[facility] LABORATORYCLIA [id number] [address] MCV (RBC) [Entitic vol] 92.3 fL Normal 80.0-100.0 [facility] Comment on above: Order Comment: Speci men Type: BLOOD SPECIMENOrdering Facility: [facility] Address: [address] [place] [address] Performed By: #### 5 8410-2 ####[facility] LABORATORYCLIA [id number] [address] Nucleated RBC (Bld) [#/Vol] 10*3/uL Normal <0.01 [facility] Comment on above: Order Comment: Speci men Type: BLOOD SPECIMENOrdering Facility: [facility] Address: [address] [place] [address] Performed By: #### 5 8410-2 ####[facility] LABORATORYCLIA [id number] [address] Platelet mean volume (Bld) [Entitic vol] 11.5 fL Normal 9.0-12.7 [facility] Comment on above: Order Comment: Speci men Type: BLOOD SPECIMENOrdering Facility: [facility] Address: [address] [place] [address] Performed By: #### 5 8410-2 ####[facility] LABORATORYCLIA [id number] [address] OF [facility] Platelets (Bld) [#/Vol] 343 10*3/uL Normal 150-400 [facility] Comment on above: Order Comment: Speci men Type: BLOOD SPECIMENOrdering Facility: [facility] Address: [address] [place] [address] Performed By: #### 5 8410-2 ####[facility] LABORATORYCLIA [id number] [address] RBC (Bld) [#/Vol] 3.36 10*6/uL Low 4.20-6.00 [facility] Comment on above: Order Comment: Speci men Type: BLOOD SPECIMENOrdering Facility: [facility] Address: [address] [place] [address] Performed By: #### 5 8410-2 ####[facility] LABORATORYCLIA [id number] [address] WBC (Bld) [#/Vol] 10.71 10*3/uL Normal 3.70-11.00 [facility] Comment on above: Order Comment: Speci men Type: BLOOD SPECIMENOrdering Facility: [facility] Address: [address] [place] [address] Performed By: #### 5 8410-2 ####[facility] LABORATORYCLIA [id number] [address] CONSULT PROGon 06-20-2021 CONSULT PROG Normal [facility] HEMOGLOBIN (HGB)on 2 Hemoglobin (Bld) [Mass/Vol] 9.7 g/dL Low 13.0-17.0 [facility] Comment on above: Order Comment: Speci men Type: BLOOD SPECIMENOrdering Facility: [facility] Address: [address] [place] [address] Performed By: #### H GB ####[facility] LABORATORYCLIA [id number] [address] [place] Magnesium SerPl-mCncon 06-20 Magnesium [Mass/Vol] 2.5 mg/dL High 1.7-2.3 [facility] Comment on above: Order Comment: Speci men Type: BLOOD SPECIMENOrdering Facility: [facility] Address: [address] [place] [address] Performed By: #### 2 4321-2, 94254-7 ####[facility] LABORATORYCLIA [id number] [address] OF [facility] NURSING PROGon 06-20-2021 NURSING PROG Normal [facility] THERAPY NTon 06-20-2021 THERAPY NT Normal [facility] aPTT PPPon 06-20-2021 aPTT Coag (PPP) [Time] 93.5 s High 23.0-32.4 [facility] Comment on above: Order Comment: Speci men Type: BLOOD SPECIMENOrdering Facility: [facility] Address: [address] [place] [address] Performed By: #### 1 4979-9 ####[facility] LABORATORYCLIA [id number] [address] aPTT Coag (PPP) [Time] 47.1 s High 23.0-32.4 [facility] Comment on above: Order Comment: Speci men Type: BLOOD SPECIMENOrdering Facility: [facility] Address: [address] [place] [address] Performed By: #### 1 4979-9 ####[facility] LABORATORYCLIA [id number] [address] [place] Basic metabolic 2000 panelon 06-19-2021 Anion gap [Moles/Vol] 7 mmol/L Low 9-18 [facility] Comment on above: Order Comment: Speci men Type: BLOOD SPECIMENOrdering Facility: [facility] Address: [address] [place] [address] Performed By: #### 2 4321-2 ####[facility]ORATORYCLIA [id number] [place] [address] [place] Calcium [Mass/Vol] 8.1 mg/dL Low 8.5-10.2 [facility] Comment on above: Order Comment: Speci men Type: BLOOD SPECIMENOrdering Facility: [facility] Address: [address] [place] [address] Performed By: #### 2 4321-2 ####[facility] LABORATORYCLIA [id number] [place] [address] [place] Chloride [Moles/Vol] 111 mmol/L High 97-105 [facility] Comment on above: Order Comment: Speci men Type: BLOOD SPECIMENOrdering Facility: [facility] Address: [address] [place] [address] Performed By: #### 2 4321-2 ####[facility] LABORATORYCLIA [id number] [place] [address] [place] CO2 [Moles/Vol] 24 mmol/L Normal 22-30 [facility] Comment on above: Order Comment: Speci men Type: BLOOD SPECIMENOrdering Facility: [facility] Address: [address] [place] [address] Performed By: #### 2 4321-2 ####[facility] LABORATORYCLIA [id number] [place] [address] [place] Creatinine [Mass/Vol] 0.71 mg/dL Low 0.73-1.22 [facility] Comment on above: Order Comment: Speci men Type: BLOOD SPECIMENOrdering Facility: [facility] Address: [address] [place] [address] Performed By: #### 2 4321-2 ####[facility] LABORATORYCLIA [id number] [place] [address] [place] GFR/1.73 sq M.predicted MDRD (S/P/Bld) [Vol rate/Area] mL/min/{1.73_m2} Normal [facility] Comment on above: Order Comment: Shira feldman Type: BLOOD SPECIMENOrdering Facility: [facility] Address: [address] [place] [address] Result Comment: >60e GFR (Estimated GFR) Units [...] actual GFR. Performed By: #### 2 4321-2 ####[facility]ITALCLIA [id number] [place] [address] [place] Glucose [Mass/Vol] 110 mg/dL High 74-99 [facility] Comment on above: Order Comment: Johncara feldman Type: BLOOD SPECIMENOrdering Facility: [facility] Address: [address] [place], [place] [phone] Result Comment: The [place] Diabetes [employer] (ADA) provides guidance for cutoff [...] Standards of Medical Care in Diabetes 2016, [place] [employer]. Diabetes Care. 2016.39(Suppl 1). Performed By: #### 2 4321-2 ####[facility] LABORATORYCLIA [id number] [place] [id number] [place] Potassium [Moles/Vol] 3.7 mmol/L Normal 3.7-5.1 [facility] Comment on above: Order Comment: Speci men Type: BLOOD SPECIMENOrdering Facility: [facility] Address: [address] [place] [address] Performed By: #### 2 4321-2 ####[facility] LABORATORYCLIA [id number] [address] STATES OF [facility] Sodium [Moles/Vol] 142 mmol/L Normal 136-144 [facility] Comment on above: Order Comment: Speci men Type: BLOOD SPECIMENOrdering Facility: [facility] Address: [address] [place] [address] Performed By: #### 2 4321-2 ####[facility] LABORATORYCLIA [id number] [address] STATES OF [facility] Urea nitrogen [Mass/Vol] 26 mg/dL High 9-24 [facility] Comment on above: Order Comment: Speci men Type: BLOOD SPECIMENOrdering Facility: [facility] Address: [address] [place] [address] Performed By: #### 2 4321-2 ####[facility] LABORATORYCLIA [id number] [address] CBC panel Auto (Bld)on 06-19 Erythrocyte distribution width (RBC) [Ratio] 15.7 % High 11.5-15.0 [facility] Comment on above: Order Comment: Speci men Type: BLOOD SPECIMENOrdering Facility: [facility] Address: [address] [place] [address] Performed By: #### 5 8410-2 ####[facility] LABORATORYCLIA [id number] [address] Hematocrit (Bld) [Volume fraction] 30.9 % Low 39.0-51.0 [facility] Comment on above: Order Comment: Speci men Type: BLOOD SPECIMENOrdering Facility: [facility] Address: [address] [place] [address] Performed By: #### 5 8410-2 ####[facility] LABORATORYCLIA [id number] [address] OF [facility] Hemoglobin (Bld) [Mass/Vol] 9.5 g/dL Low 13.0-17.0 [facility] Comment on above: Order Comment: Speci men Type: BLOOD SPECIMENOrdering Facility: [facility] Address: [address] [place] [address] Performed By: #### 5 8410-2 ####[facility] LABORATORYCLIA [id number] [address] MCH (RBC) [Entitic mass] 28.4 pg Normal 26.0-34.0 [facility] Comment on above: Order Comment: Speci men Type: BLOOD SPECIMENOrdering Facility: [facility] Address: [address] [place] [address] Performed By: #### 5 8410-2 ####[facility] LABORATORYCLIA [id number] [address] MCHC (RBC) [Mass/Vol] 30.7 g/dL Normal 30.5-36.0 [facility] Comment on above: Order Comment: Speci men Type: BLOOD SPECIMENOrdering Facility: [facility] Address: [address] [place] [address] Performed By: #### 5 8410-2 ####[facility] LABORATORYCLIA [id number] [address] MCV (RBC) [Entitic vol] 92.2 fL Normal 80.0-100.0 [facility] Comment on above: Order Comment: Speci men Type: BLOOD SPECIMENOrdering Facility: [facility] Address: [address] [place] [address] Performed By: #### 5 8410-2 ####[facility] LABORATORYCLIA [id number] [address] OF [facility] Nucleated RBC (Bld) [#/Vol] 10*3/uL Normal <0.01 [facility] Comment on above: Order Comment: Speci men Type: BLOOD SPECIMENOrdering Facility: [facility] Address: [address] [place] [address] Performed By: #### 5 8410-2 ####[facility] LABORATORYCLIA [id number] [address] [place] Platelet mean volume (Bld) [Entitic vol] 11.7 fL Normal 9.0-12.7 [facility] Comment on above: Order Comment: Speci men Type: BLOOD SPECIMENOrdering Facility: [facility] Address: [address] [place] [address] Performed By: #### 5 8410-2 ####[facility] LABORATORYCLIA [id number] [address] [place] Platelets (Bld) [#/Vol] 323 10*3/uL Normal 150-400 [facility] Comment on above: Order Comment: Speci men Type: BLOOD SPECIMENOrdering Facility: [facility] Address: [address] [place] [address] Performed By: #### 5 8410-2 ####[facility] LABORATORYCLIA [id number] [place] [address] [place] RBC (Bld) [#/Vol] 3.35 10*6/uL Low 4.20-6.00 [facility] Comment on above: Order Comment: Speci men Type: BLOOD SPECIMENOrdering Facility: [facility] Address: [address] [place], [place] [address] Performed By: #### 5 8410-2 ####[facility] LABORATORYCLIA [id number] [address] [place] WBC (Bld) [#/Vol] 9.53 10*3/uL Normal 3.70-11.00 [facility] Comment on above: Order Comment: Speci men Type: BLOOD SPECIMENOrdering Facility: [facility] Address: [address] [place] [address] Performed By: #### 5 8410-2 ####[facility] LABORATORYCLIA [id number] [address] [place] HEMOGLOBIN (HGB)on Hemoglobin (Bld) [Mass/Vol] 9.7 g/dL Low 13.0-17.0 [facility] Comment on above: Order Comment: Speci men Type: BLOOD SPECIMENOrdering Facility: [facility] Address: [address] [place] [address] Performed By: #### H GB ####[facility] LABORATORYCLIA [id number] [address] [place] Magnesium SerPl-mCncon 06-19 Magnesium [Mass/Vol] 2.5 mg/dL High 1.7-2.3 [facility] Comment on above: Order Comment: Speci men Type: BLOOD SPECIMENOrdering Facility: [facility] Address: [address] [place] [address] Performed By: #### 1 9123-9, 2777-1 ####[facility]ITALCLIA [id number] [address] [place] NURSING PROGon 06-19-2021 NURSING PROG Normal [facility] Phosphate SerPl-mCncon 06-19 Phosphate [Mass/Vol] 2.6 mg/dL Low 2.7-4.8 [facility] Comment on above: Order Comment: Speci men Type: BLOOD SPECIMENOrdering Facility: [facility] Address: [address] [place] [address] Performed By: #### 1 9123-9, 2777-1 ####[facility]ITALCLIA [id number] [address] [place] aPTT PPPon 06-19-2021 aPTT Coag (PPP) [Time] 61.9 s High 23.0-32.4 [facility] Comment on above: Order Comment: Speci men Type: BLOOD SPECIMENOrdering Facility: [facility] Address: [address] [place] [address] Performed By: #### 1 4979-9 ####[facility] LABORATORYCLIA [id number] [address] [place] aPTT Coag (PPP) [Time] 68.6 s High 23.0-32.4 [facility] Comment on above: Order Comment: Speci men Type: BLOOD SPECIMENOrdering Facility: [facility] Address: [address] [place] [address] Performed By: #### 1 4979-9 ####[facility] LABORATORYCLIA [id number] [address] [place] aPTT Coag (PPP) [Time] 83.2 s High 23.0-32.4 [facility] Comment on above: Order Comment: Speci men Type: BLOOD SPECIMENOrdering Facility: [facility] Address: [address] [place] [address] Performed By: #### 1 4979-9 ####[facility] LABORATORYCLIA [id number] [place] [address] [place] Basic metabolic 2000 panelon 06-18-2021 Anion gap [Moles/Vol] 7 mmol/L Low 9-18 [facility] Comment on above: Order Comment: Speci men Type: BLOOD SPECIMENOrdering Facility: [facility] Address: [address] [place] [address] Performed By: #### 2 4321-2, , 2776-05 ####[facility] LABORATORYCLIA [id number] [place] [address] [place] Calcium [Mass/Vol] 8.2 mg/dL Low 8.5-10.2 [facility] Comment on above: Order Comment: Speci men Type: BLOOD SPECIMENOrdering Facility: [facility] Address: [address] [place] [address] Performed By: #### 2 4321-2, , 2776-05 ####[facility] LABORATORYCLIA [id number] [address] [place] Chloride [Moles/Vol] 115 mmol/L High 97-105 [facility] Comment on above: Order Comment: Speci men Type: BLOOD SPECIMENOrdering Facility: [facility] Address: [address] [place], [place] [address] Performed By: #### 2 4321-2, , 2776-05 ####[facility] LABORATORYCLIA [id number] [place] [address] [place] [facility] CO2 [Moles/Vol] 23 mmol/L Normal 22-30 [facility] Comment on above: Order Comment: Speci men Type: BLOOD SPECIMENOrdering Facility: [facility] Address: [address] [place], [place] [address] Performed By: #### 2 4321-2, , 2776-05 ####[facility]ITAL[facility] [id number] [address] [place] Creatinine [Mass/Vol] 0.70 mg/dL Low 0.73-1.22 [facility] Comment on above: Order Comment: Speci men Type: BLOOD SPECIMENOrdering Facility: [facility] Address: [address] [place], [place] [address] Performed By: #### 2 4321-2, , 2776-05 ####[facility] LABORATORYCLIA [id number] [address] [place] GFR/1.73 sq M.predicted MDRD (S/P/Bld) [Vol rate/Area] mL/min/{1.73_m2} Normal [facility] Comment on above: Order Comment: Speci men Type: BLOOD SPECIMENOrdering Facility: [facility] Address: [address] [place], [place] [address] Result Comment: >60e GFR (Estimated GFR) Units [...] Performed By: #### 2 4321-2, , 2776-05 ####[facility] LABORATORYCLIA [id number] [place] [address] [place] Glucose [Mass/Vol] 105 mg/dL High 74-99 [facility] Comment on above: Order Comment: Shira feldman Type: BLOOD SPECIMENOrdering Facility: [facility] Address: [address] [place] [phone] Result Comment: The [place] Diabetes [employer] (ADA) provides guidance for cutoff [...] Standards of Medical Care in Diabetes 2016, [place] [employer]. Diabetes Care. 2016.39(Suppl 1). Performed By: #### 2 4321-2, , 2776-05 ####[facility] LABORATORYCLIA [id number] [place] [address] [place] Potassium [Moles/Vol] 4.1 mmol/L Normal 3.7-5.1 [facility] Comment on above: Order Comment: Shira feldman Type: BLOOD SPECIMENOrdering Facility: [facility] Address: [address] [place] [address] Performed By: #### 2 4321-2, , 2776-05 ####[facility] LABORATORYCLIA [id number] [place] [address] [place] Sodium [Moles/Vol] 145 mmol/L High 136-144 [facility] Comment on above: Order Comment: Speci men Type: BLOOD SPECIMENOrdering Facility: [facility] Address: [address] [place] [address] Performed By: #### 2 4321-2, , 2776-05 ####[facility] LABORATORYCLIA [id number] [address] STATES OF [facility] Urea nitrogen [Mass/Vol] 27 mg/dL High 9-24 [facility] Comment on above: Order Comment: Speci men Type: BLOOD SPECIMENOrdering Facility: [facility] Address: [address] [place] [address] Performed By: #### 2 4321-2, , 2776-05 ####[facility] LABORATORYCLIA [id number] [address] STATES OF [facility] CALCIUM IONIZED Bon 06-18-19 Calcium.ionized (BldV) [Mass/Vol] 1.22 mmol/L Normal 1.08-1.30 [facility] Comment on above: Order Comment: Speci men Type: BLOOD SPECIMENOrdering Facility: [facility] Address: [address] [place] [address] Performed By: #### I CA ####[facility] LABORATORYCLIA [id number] [address] Calcium.ionized adjusted to pH 7.4 (Bld) [Moles/Vol] 1.23 mmol/L Normal 1.08-1.30 [facility] Comment on above: Order Comment: Speci men Type: BLOOD SPECIMENOrdering Facility: [facility] Address: [address] [place] [address] Performed By: #### I CA ####[facility] LABORATORYCLIA [id number] [address] [place] CBC panel Auto (Bld)on 06-18 Erythrocyte distribution width (RBC) [Ratio] 15.8 % High 11.5-15.0 [facility] Comment on above: Order Comment: Speci men Type: BLOOD SPECIMENOrdering Facility: [facility] Address: [address] [place] [address] Performed By: #### 5 8410-2 ####[facility] LABORATORYCLIA [id number] [address] Hematocrit (Bld) [Volume fraction] 29.5 % Low 39.0-51.0 [facility] Comment on above: Order Comment: Speci men Type: BLOOD SPECIMENOrdering Facility: [facility] Address: [address] [place] [address] Performed By: #### 5 8410-2 ####[facility] LABORATORYCLIA [id number] [address] OF [facility] Hemoglobin (Bld) [Mass/Vol] 8.8 g/dL Low 13.0-17.0 [facility] Comment on above: Order Comment: Speci men Type: BLOOD SPECIMENOrdering Facility: [facility] Address: [address] [place] [address] Performed By: #### 5 8410-2 ####[facility] LABORATORYCLIA [id number] [address] OF [facility] MCH (RBC) [Entitic mass] 27.4 pg Normal 26.0-34.0 [facility] Comment on above: Order Comment: Speci men Type: BLOOD SPECIMENOrdering Facility: [facility] Address: [address] [place] [address] Performed By: #### 5 8410-2 ####[facility] LABORATORYCLIA [id number] [address] [place] MCHC (RBC) [Mass/Vol] 29.8 g/dL Low 30.5-36.0 [facility] Comment on above: Order Comment: Speci men Type: BLOOD SPECIMENOrdering Facility: [facility] Address: [address] [place] [address] Performed By: #### 5 8410-2 ####[facility] LABORATORYCLIA [id number] [address] MCV (RBC) [Entitic vol] 91.9 fL Normal 80.0-100.0 [facility] Comment on above: Order Comment: Speci men Type: BLOOD SPECIMENOrdering Facility: [facility] Address: [address] [address] Performed By: #### 5 8410-2 ####[facility] LABORATORYCLIA [id number] [place] [address] [place] Nucleated RBC (Bld) [#/Vol] 10*3/uL Normal <0.01 [facility] Comment on above: Order Comment: Speci men Type: BLOOD SPECIMENOrdering Facility: [facility] Address: [address] [place] [address] Performed By: #### 5 8410-2 ####[facility] LABORATORYCLIA [id number] [place] [address] [place] Platelet mean volume (Bld) [Entitic vol] 11.9 fL Normal 9.0-12.7 [facility] Comment on above: Order Comment: Speci men Type: BLOOD SPECIMENOrdering Facility: [facility] Address: [address] [place] [address] Performed By: #### 5 8410-2 ####[facility] LABORATORYCLIA [id number] [place] [address] [place] Platelets (Bld) [#/Vol] 291 10*3/uL Normal 150-400 [facility] Comment on above: Order Comment: Speci men Type: BLOOD SPECIMENOrdering Facility: [facility] Address: [address] Performed By: #### 5 8410-2 ####[facility] LABORATORYCLIA [id number] [place] [address] [place] RBC (Bld) [#/Vol] 3.21 10*6/uL Low 4.20-6.00 [facility] Comment on above: Order Comment: Speci men Type: BLOOD SPECIMENOrdering Facility: [facility] Address: [address] [place] [address] Performed By: #### 5 8410-2 ####[facility] LABORATORYCLIA [id number] [address] OF [facility] WBC (Bld) [#/Vol] 10.19 10*3/uL Normal 3.70-11.00 [facility] Comment on above: Order Comment: Speci men Type: BLOOD SPECIMENOrdering Facility: [facility] Address: [address] [place] [address] Performed By: #### 5 8410-2 ####[facility] LABORATORYCLIA [id number] [address] [place] FERRITIN BLDon 06-18-2021 Ferritin [Mass/Vol] 600.9 ng/mL High 30.3-565.7 [facility] Comment on above: Order Comment: Speci men Type: BLOOD SPECIMENOrdering Facility: [facility] Address: [address] [place] [address] Performed By: #### S ERFOL, IRON, FERR ####[facility]PITALCLIA [id number] [address] FOLATE SERUMon 06-18-2021 Folate [Mass/Vol] 14.3 ng/mL Normal >4.7 [facility] Comment on above: Order Comment: Speci men Type: BLOOD SPECIMENOrdering Facility: [facility] Address: [address] [place] [address] Performed By: #### S ERFOL, IRON, FERR ####[facility] LABORATORYCLIA [id number] [address] Gas and Carbon monoxide pane l (BldV)on 06-18-2021 Base excess Calc (BldV) [Moles/Vol] 0.5 mmol/L Normal 0-2 [facility] Comment on above: Order Comment: Speci men Type: VENOUS BLOOD SPECIMENOrdering Facility: [facility] Address: [address] [place] [address] Performed By: #### 2 4344-4 ####[facility] LABORATORYCLIA [id number] [address] Body temperature 97.34 [degF] Normal [facility] Comment on above: Order Comment: Speci men Type: VENOUS BLOOD SPECIMENOrdering Facility: [facility] Address: [address] [place] [address] Performed By: #### 2 4344-4 ####[facility] LABORATORYCLIA [id number] [address] STATES OF [facility] CALCIUM IONIZED, PH CORRECTED 1.26 mmol/L Normal 1.08-1.30 [facility] Comment on above: Order Comment: Speci men Type: VENOUS BLOOD SPECIMENOrdering Facility: [facility] Address: [address] [place] [address] Performed By: #### 2 4344-4 ####[facility] LABORATORYCLIA [id number] [address] Calcium.ionized (BldV) [Mass/Vol] 1.25 mmol/L Normal 1.08-1.30 [facility] Comment on above: Order Comment: Speci men Type: VENOUS BLOOD SPECIMENOrdering Facility: [facility] Address: [address] [place] [address] Performed By: #### 2 4344-4 ####[facility] LABORATORYCLIA [id number] [address] [place] Carboxyhemoglobin (BldV) [Mass fraction] 1.5 % Normal 0.0-2.0 [facility] Comment on above: Order Comment: Speci men Type: VENOUS BLOOD SPECIMENOrdering Facility: [facility] Address: [address] [place] [address] Result Comment: Carb oxyhemoglobin Reference Range for Smokers: 2.0-8.0% Performed By: #### 2 4344-4 ####[facility] LABORATORYCLIA [id number] [address] [place] CO2 (BldV) [Partial pressure] 38 mm[Hg] Low 42-55 [facility] Comment on above: Order Comment: Speci men Type: VENOUS BLOOD SPECIMENOrdering Facility: [facility] Address: [address] [address] Performed By: #### 2 4344-4 ####[facility] LABORATORYCLIA [id number] [address] STATES OF [facility] CO2 [Moles/Vol] 22.9 mmol/L Low 25-29 [facility] Comment on above: Order Comment: Speci men Type: VENOUS BLOOD SPECIMENOrdering Facility: [facility] Address: [address] [place] [address] Performed By: #### 2 4344-4 ####[facility] LABORATORYCLIA [id number] [address] CO2 adjusted to patient's actual temperature (BldV) [Partial pressure] 37 mmHg Low 42-55 [facility] Comment on above: Order Comment: Speci men Type: VENOUS BLOOD SPECIMENOrdering Facility: [facility] Address: [address] [place] [address] Performed By: #### 2 4344-4 ####[facility] LABORATORYCLIA [id number] [address] Glucose [Mass/Vol] 103 mg/dL Normal 60-105 [facility] Comment on above: Order Comment: Speci men Type: VENOUS BLOOD SPECIMENOrdering Facility: [facility] Address: [address] [address] Performed By: #### 2 4344-4 ####[facility] LABORATORYCLIA [id number] [address] [place] HCO3 (Bld) [Moles/Vol] 24.4 mmol/L Normal 24-28 [facility] Comment on above: Order Comment: Speci men Type: VENOUS BLOOD SPECIMENOrdering Facility: [facility] Address: [address] [place] [address] Performed By: #### 2 4344-4 ####[facility] LABORATORYCLIA [id number] [address] [facility] Hematocrit (Bld) [Volume fraction] 28.7 % Low 39.0-51.0 [facility] Comment on above: Order Comment: Speci men Type: VENOUS BLOOD SPECIMENOrdering Facility: [facility] Address: [address] [place] [address] Performed By: #### 2 4344-4 ####[facility] LABORATORYCLIA [id number] [address] [place] Hemoglobin (Bld) [Mass/Vol] 9.3 g/dL Low 13.0-17.0 [facility] Comment on above: Order Comment: Speci men Type: VENOUS BLOOD SPECIMENOrdering Facility: [facility] Address: [address] [place] [address] Performed By: #### 2 4344-4 ####[facility] LABORATORYCLIA [id number] [address] [place] Methemoglobin (Bld) [Mass fraction] % Normal 0.0-1.5 [facility] Comment on above: Order Comment: Speci men Type: VENOUS BLOOD SPECIMENOrdering Facility: [facility] Address: [address] [place] [address] Performed By: #### 2 4344-4 ####[facility] LABORATORYCLIA [id number] [address] [place] O2 THERAPY Ventilator Normal [facility] Comment on above: Order Comment: Speci men Type: VENOUS BLOOD SPECIMENOrdering Facility: [facility] Address: [address] [place] [address] Performed By: #### 2 4344-4 ####[facility] LABORATORYCLIA [id number] [address] Oxygen (BldV) [Partial pressure] 37 mm[Hg] Normal 35-45 [facility] Comment on above: Order Comment: Speci men Type: VENOUS BLOOD SPECIMENOrdering Facility: [facility] Address: [address] [place] [address] Performed By: #### 2 4344-4 ####[facility] LABORATORYCLIA [id number] [place], [place] [id number] [place] [address] [place] Oxygen adjusted to patient's actual temperature (BldV) [Partial pressure] 35.1 mmHg Normal 35-45 [facility] Comment on above: Order Comment: Speci men Type: VENOUS BLOOD SPECIMENOrdering Facility: [facility] Address: [address] [place] [address] Performed By: #### 2 4344-4 ####[facility] LABORATORYCLIA [id number] [address] [place] Oxygen saturation in Blood 67.1 % Normal 60-85 [facility] Comment on above: Order Comment: Speci men Type: VENOUS BLOOD SPECIMENOrdering Facility: [facility] Address: [address] [place] [address] Performed By: #### 2 4344-4 ####[facility] LABORATORYCLIA [id number] [address] Oxyhemoglobin (BldV) [Mass fraction] 66 % Normal 60-85 [facility] Comment on above: Order Comment: Speci men Type: VENOUS BLOOD SPECIMENOrdering Facility: [facility] Address: [address] [place] [address] Performed By: #### 2 4344-4 ####[facility] LABORATORYCLIA [id number] [address] [place] pH (BldV) 7.42 [pH] Normal 7.32-7.42 [facility] Comment on above: Order Comment: Speci men Type: VENOUS BLOOD SPECIMENOrdering Facility: [facility] Address: [address] [place] [address] Performed By: #### 2 4344-4 ####[facility] LABORATORYCLIA [id number] [address] pH adjusted to patient's actual temperature (BldV) 7.43 High 7.32-7.42 [facility] Comment on above: Order Comment: Speci men Type: VENOUS BLOOD SPECIMENOrdering Facility: [facility] Address: [address] [place] [address] Performed By: #### 2 4344-4 ####[facility] LABORATORYCLIA [id number] [place] [address] [place] Potassium [Moles/Vol] 4.0 mmol/L Normal 3.5-5.0 [facility] Comment on above: Order Comment: Speci men Type: VENOUS BLOOD SPECIMENOrdering Facility: [facility] Address: [address] [place] [address] Performed By: #### 2 4344-4 ####[facility] LABORATORYCLIA [id number] [address] [place] Sodium [Moles/Vol] 146 mmol/L High 136-144 [facility] Comment on above: Order Comment: Speci men Type: VENOUS BLOOD SPECIMENOrdering Facility: [facility] Address: [address] [place] [address] Performed By: #### 2 4344-4 ####[facility] LABORATORYCLIA [id number] [place] [address] [place] HEMOGLOBIN (HGB)on Hemoglobin (Bld) [Mass/Vol] 9.2 g/dL Low 13.0-17.0 [facility] Comment on above: Order Comment: Speci men Type: BLOOD SPECIMENOrdering Facility: [facility] Address: [address] [place] [address] Performed By: #### H GB ####[facility] LABORATORYCLIA [id number] [address] [place] IRON + TIBCon 06-18-2021 Iron [Mass/Vol] 27 ug/dL Low 41-186 [facility] Comment on above: Order Comment: Speci men Type: BLOOD SPECIMENOrdering Facility: [facility] Address: [address] [place] [address] Performed By: #### S ERFOL, IRON, FERR ####[facility] LABORATORYCLIA [id number] [address] Iron binding capacity [Mass/Vol] 141 ug/dL Low 232-386 [facility] Comment on above: Order Comment: Speci men Type: BLOOD SPECIMENOrdering Facility: [facility] Address: [address] [place] [address] Performed By: #### S ERFOL, IRON, FERR ####[facility] LABORATORYCLIA [id number] [address] Iron saturation [Mass fraction] 19 % Normal 15-57 [facility] Comment on above: Order Comment: Speci men Type: BLOOD SPECIMENOrdering Facility: [facility] Address: [address] [place] [address] Performed By: #### S ERFOL, IRON, FERR ####[facility] LABORATORYCLIA [id number] [address] Magnesium SerPl-mCncon 06-18 Magnesium [Mass/Vol] 2.5 mg/dL High 1.7-2.3 [facility] Comment on above: Order Comment: Speci men Type: BLOOD SPECIMENOrdering Facility: [facility] Address: [address] [place] [address] Performed By: #### 2 4321-2, , 2776- ####[facility] LABORATORYCLIA [id number] [address] NURSING PROGon 06-18-2021 NURSING PROG Normal [facility] Phosphate SerPl-mCncon 06-18 Phosphate [Mass/Vol] 3.0 mg/dL Normal 2.7-4.8 [facility] Comment on above: Order Comment: Speci men Type: BLOOD SPECIMENOrdering Facility: [facility] Address: [address] [place] [address] Performed By: #### 2 4321-2, 98886-3, 2777-1 ####[facility] LABORATORYCLIA [id number] [address] THERAPY NTon 06-18-2021 THERAPY NT Normal [facility] aPTT PPPon 06-18-2021 aPTT Coag (PPP) [Time] 43.0 s High 23.0-32.4 [facility] Comment on above: Order Comment: Speci men Type: BLOOD SPECIMENOrdering Facility: [facility] Address: [address] [place] [address] Performed By: #### 1 4979-9 ####[facility] LABORATORYCLIA [id number] [address] aPTT Coag (PPP) [Time] 60.6 s High 23.0-32.4 [facility] Comment on above: Order Comment: Speci men Type: BLOOD SPECIMENOrdering Facility: [facility] Address: [address] [place] [address] Performed By: #### 1 4979-9 ####[facility]ITAL[facility] [id number] [address] aPTT Coag (PPP) [Time] 46.4 s High 23.0-32.4 [facility] Comment on above: Order Comment: Speci men Type: BLOOD SPECIMENOrdering Facility: [facility] Address: [address] [place] [address] Performed By: #### 1 4979-9 ####[facility] LABORATORYCLIA [id number] [address] [place] Basic metabolic 2000 panelon 06-17-2021 Anion gap [Moles/Vol] 7 mmol/L Low 9-18 [facility] Comment on above: Order Comment: Speci men Type: BLOOD SPECIMENOrdering Facility: [facility] Address: [address] [place] [address] Performed By: #### 2 951-2, 09519-1, 2777-1, 18497-0 ####[facility] LABORATORYCLIA [id number] [address] OF [facility] Calcium [Mass/Vol] 8.1 mg/dL Low 8.5-10.2 [facility] Comment on above: Order Comment: Speci men Type: BLOOD SPECIMENOrdering Facility: [facility] Address: [address] [place] [address] Performed By: #### 2 951-2, , 2776-05, 85158-9 ####[facility] LABORATORYCLIA [id number] [place] [address] [place] Chloride [Moles/Vol] 113 mmol/L High 97-105 [facility] Comment on above: Order Comment: Speci men Type: BLOOD SPECIMENOrdering Facility: [facility] Address: [address] [place] [address] Performed By: #### 2 951-2, , 2776-05, 98412-6 ####[facility] LABORATORYCLIA [id number] [place] [address] [place] CO2 [Moles/Vol] 25 mmol/L Normal 22-30 [facility] Comment on above: Order Comment: Speci men Type: BLOOD SPECIMENOrdering Facility: [facility] Address: [address] [place] [address] Performed By: #### 2 951-2, , 2776-05, ####[facility] LABORATORYCLIA [id number] [place] [address] [place] Creatinine [Mass/Vol] 0.70 mg/dL Low 0.73-1.22 [facility] Comment on above: Order Comment: Speci men Type: BLOOD SPECIMENOrdering Facility: [facility] Address: [address] [place] [address] Performed By: #### 2 951-2, , 2776-05, 46680-9 ####[facility] LABORATORYCLIA [id number] [place] [address] [place] GFR/1.73 sq M.predicted MDRD (S/P/Bld) [Vol rate/Area] mL/min/{1.73_m2} Normal [facility] Comment on above: Order Comment: Shira feldman Type: BLOOD SPECIMENOrdering Facility: [facility] Address: [address] [place] [address] Result Comment: >60e GFR (Estimated GFR) Units [...] actual GFR. Performed By: #### 2 951-2, 12906-4, 2777-1, 27747-3 ####[facility]ITAL[facility]IA [id number] [place] [id number] [place] Glucose [Mass/Vol] 122 mg/dL High 74-99 [facility] Comment on above: Order Comment: Shira feldman Type: BLOOD SPECIMENOrdering Facility: [facility] Address: [address] [place] [address] Result Comment: The [place] Diabetes Association (ADA) provides guidance for cutoff [...] Standards of Medical Care in Diabetes 2016, [place] [employer]. Diabetes Care. 2016.39(Suppl 1). Performed By: #### 2 951-2, 60667-8, 2777-1, 77800-9 ####[facility] LABORATORYCLIA [id number] [place] [address] [place] Potassium [Moles/Vol] 3.5 mmol/L Low 3.7-5.1 [facility] Comment on above: Order Comment: Speci men Type: BLOOD SPECIMENOrdering Facility: [facility] Address: [address] [place] [address] Performed By: #### 2 951-2, 84821-7, 2777-1, 22014-8 ####[facility] LABORATORYCLIA [id number] [address] STATES OF [facility] Urea nitrogen [Mass/Vol] 27 mg/dL High 9-24 [facility] Comment on above: Order Comment: Speci men Type: BLOOD SPECIMENOrdering Facility: [facility] Address: [address] [place] [address] Performed By: #### 2 951-2, 08954-2, 2777-1, 64804-0 ####[facility] LABORATORYCLIA [id number] [address] CASE MANAGEMon 06-17-2021 CASE MANAGEM Normal [facility] CBC panel Auto (Bld)on 06-17 Erythrocyte distribution width (RBC) [Ratio] 15.9 % High 11.5-15.0 [facility] Comment on above: Order Comment: Speci men Type: BLOOD SPECIMENOrdering Facility: [facility] Address: [address] [place] [address] Performed By: #### 5 8410-2 ####[facility] LABORATORYCLIA [id number] [address] Hematocrit (Bld) [Volume fraction] 28.9 % Low 39.0-51.0 [facility] Comment on above: Order Comment: Speci men Type: BLOOD SPECIMENOrdering Facility: [facility] Address: [address] [place] [address] Performed By: #### 5 8410-2 ####[facility] LABORATORYCLIA [id number] [address] STATES OF [facility] Hemoglobin (Bld) [Mass/Vol] 8.8 g/dL Low 13.0-17.0 [facility] Comment on above: Order Comment: Speci men Type: BLOOD SPECIMENOrdering Facility: [facility] Address: [address] [place] [address] Performed By: #### 5 8410-2 ####[facility] LABORATORYCLIA [id number] [address] [facility] MCH (RBC) [Entitic mass] 28.4 pg Normal 26.0-34.0 [facility] Comment on above: Order Comment: Speci men Type: BLOOD SPECIMENOrdering Facility: [facility] Address: [address] [place] [address] Performed By: #### 5 8410-2 ####[facility] LABORATORYCLIA [id number] [address] [facility] MCHC (RBC) [Mass/Vol] 30.4 g/dL Low 30.5-36.0 [facility] Comment on above: Order Comment: Speci men Type: BLOOD SPECIMENOrdering Facility: [facility] Address: [address] [place] [address] Performed By: #### 5 8410-2 ####[facility] LABORATORYCLIA [id number] [address] MCV (RBC) [Entitic vol] 93.2 fL Normal 80.0-100.0 [facility] Comment on above: Order Comment: Speci men Type: BLOOD SPECIMENOrdering Facility: [facility] Address: [address] [place] [address] Performed By: #### 5 8410-2 ####[facility] LABORATORYCLIA [id number] [address] Nucleated RBC (Bld) [#/Vol] 10*3/uL Normal <0.01 [facility] Comment on above: Order Comment: Speci men Type: BLOOD SPECIMENOrdering Facility: [facility] Address: [address] [place] [address] Performed By: #### 5 8410-2 ####[facility] LABORATORYCLIA [id number] [address] Platelet mean volume (Bld) [Entitic vol] 11.9 fL Normal 9.0-12.7 [facility] Comment on above: Order Comment: Speci men Type: BLOOD SPECIMENOrdering Facility: [facility] Address: [address] [place] [address] Performed By: #### 5 8410-2 ####[facility] LABORATORYCLIA [id number] [address] OF [facility] Platelets (Bld) [#/Vol] 257 10*3/uL Normal 150-400 [facility] Comment on above: Order Comment: Speci men Type: BLOOD SPECIMENOrdering Facility: [facility] Address: [address] [place] [address] Performed By: #### 5 8410-2 ####[facility]ORATORYCLIA [id number] [address] RBC (Bld) [#/Vol] 3.10 10*6/uL Low 4.20-6.00 [facility] Comment on above: Order Comment: Speci men Type: BLOOD SPECIMENOrdering Facility: [facility] Address: [address] [place] [address] Performed By: #### 5 8410-2 ####[facility] LABORATORYCLIA [id number] [address] WBC (Bld) [#/Vol] 10.54 10*3/uL Normal 3.70-11.00 [facility] Comment on above: Order Comment: Speci men Type: BLOOD SPECIMENOrdering Facility: [facility] Address: [address] [place] [address] Performed By: #### 5 8410-2 ####[facility] LABORATORYCLIA [id number] [address] HEMOGLOBIN (HGB)on 2 Hemoglobin (Bld) [Mass/Vol] 8.8 g/dL Low 13.0-17.0 [facility] Comment on above: Order Comment: Speci men Type: BLOOD SPECIMENOrdering Facility: [facility] Address: [address] [place] [address] Performed By: #### H GB ####[facility] LABORATORYCLIA [id number] [address] [place] Magnesium SerPl-mCncon 06-17 Magnesium [Mass/Vol] 2.5 mg/dL High 1.7-2.3 [facility] Comment on above: Order Comment: Speci men Type: BLOOD SPECIMENOrdering Facility: [facility] Address: [address] [place] [address] Performed By: #### 2 951-2, , 2776-05, 16405-0 ####[facility] LABORATORYCLIA [id number] [place] [address] [place] NURSING PROGon 06-17-2021 NURSING PROG Normal [facility] NURSING PROG Normal [facility] NURSING PROG Normal [facility] Phosphate SerPl-mCncon 06-17 Phosphate [Mass/Vol] 1.9 mg/dL Low 2.7-4.8 [facility] Comment on above: Order Comment: Speci men Type: BLOOD SPECIMENOrdering Facility: [facility] Address: [address] [place] [address] Performed By: #### 2 951-2, , 2776-05, 52625-1 ####[facility]ORATORYCLIA [id number] [place] [address] [place] Sodium SerPl-sCncon 06-17-19 22 Sodium [Moles/Vol] 144 mmol/L Normal 136-144 [facility] Comment on above: Order Comment: Speci men Type: BLOOD SPECIMENOrdering Facility: [facility] Address: [address] [place] [address] Performed By: #### 2 951-2 ####[facility]ORATORYCLIA [id number] [address] STATES OF [facility] Sodium [Moles/Vol] 145 mmol/L High 136-144 [facility] Comment on above: Order Comment: Speci men Type: BLOOD SPECIMENOrdering Facility: [facility] Address: [address] [place] [address] Performed By: #### 2 951-2, 83567-0, 2777-1, 27294-8 ####[facility] LABORATORYCLIA [id number] [address] [place] aPTT PPPon 06-17-2021 aPTT Coag (PPP) [Time] 55.8 s High 23.0-32.4 [facility] Comment on above: Order Comment: Speci men Type: BLOOD SPECIMENOrdering Facility: [facility] Address: [address] [place] [address] Performed By: #### 1 4979-9 ####[facility] LABORATORYCLIA [id number] [address] [place] ARTERIAL BLOOD GASESon 06-16 Base excess Calc (Bld) [Moles/Vol] 3 mmol/L High 0-2 [facility] Comment on above: Order Comment: Speci men Type: ARTERIAL BLOOD SPECIMENOrdering Facility: [facility] Address: [address] [place] [address] Performed By: #### A LLBG ####[facility] LABORATORYCLIA [id number] [address] [place] Body temperature 99.14 [degF] Normal [facility] Comment on above: Order Comment: Speci men Type: ARTERIAL BLOOD SPECIMENOrdering Facility: [facility] Address: [address] [place] [address] Performed By: #### A LLBG ####[facility] LABORATORYCLIA [id number] [address] [place] CALCIUM IONIZED, PH CORRECTED 1.21 mmol/L Normal 1.08-1.30 [facility] Comment on above: Order Comment: Speci men Type: ARTERIAL BLOOD SPECIMENOrdering Facility: [facility] Address: [address] [place] [address] Performed By: #### A LLBG ####[facility] LABORATORYCLIA [id number] [address] [place] Calcium.ionized (BldV) [Mass/Vol] 1.17 mmol/L Normal 1.08-1.30 [facility] Comment on above: Order Comment: Speci men Type: ARTERIAL BLOOD SPECIMENOrdering Facility: [facility] Address: [address] [place] [address] Performed By: #### A LLBG ####[facility] LABORATORYCLIA [id number] [address] Carboxyhemoglobin (BldA) [Mass fraction] 1.4 % Normal 0.0-2.0 [facility] Comment on above: Order Comment: Speci men Type: ARTERIAL BLOOD SPECIMENOrdering Facility: [facility] Address: [address] [place] [address] Result Comment: Carb oxyhemoglobin Reference Range for Smokers: 2.0-8.0% Performed By: #### A LLBG ####[facility] LABORATORYCLIA [id number] [address] [place] CO2 (Bld) [Partial pressure] 38 mm Hg Normal 36-46 [facility] Comment on above: Order Comment: Speci men Type: ARTERIAL BLOOD SPECIMENOrdering Facility: [facility] Address: [address] [place] [address] Performed By: #### A LLBG ####[facility] LABORATORYCLIA [id number] [address] [place] CO2 [Moles/Vol] 24.5 mmol/L Normal 22-28 [facility] Comment on above: Order Comment: Speci men Type: ARTERIAL BLOOD SPECIMENOrdering Facility: [facility] Address: [address] [place] [address] Performed By: #### A LLBG ####[facility] LABORATORYCLIA [id number] [address] OF [facility] CO2 adjusted to patient's actual temperature (Bld) [Partial pressure] 38 mmHg Normal 36-46 [facility] Comment on above: Order Comment: Speci men Type: ARTERIAL BLOOD SPECIMENOrdering Facility: [facility] Address: [address] [place] [address] Performed By: #### A LLBG ####[facility]ORATORYCLIA [id number] [address] [place] Glucose [Mass/Vol] 147 mg/dL High 60-105 [facility] Comment on above: Order Comment: Speci men Type: ARTERIAL BLOOD SPECIMENOrdering Facility: [facility] Address: [address] [place] [address] Performed By: #### A LLBG ####[facility]ORATORYCLIA [id number] [address] [place] HCO3 (Bld) [Moles/Vol] 27 mmol/L High 22-26 [facility] Comment on above: Order Comment: Speci men Type: ARTERIAL BLOOD SPECIMENOrdering Facility: [facility] Address: [address] [place] [address] Performed By: #### A LLBG ####[facility]ORATORYCLIA [id number] [address] [place] Hematocrit (Bld) [Volume fraction] 31.8 % Low 39.0-51.0 [facility] Comment on above: Order Comment: Speci men Type: ARTERIAL BLOOD SPECIMENOrdering Facility: [facility] Address: [address] [place] [address] Performed By: #### A LLBG ####[facility]ORATORYCLIA [id number] [address] [place] Hemoglobin (Bld) [Mass/Vol] 10.3 g/dL Low 13.0-17.0 [facility] Comment on above: Order Comment: Speci men Type: ARTERIAL BLOOD SPECIMENOrdering Facility: [facility] Address: [address] [place] [address] Performed By: #### A LLBG ####[facility]ORATORYCLIA [id number] [address] Methemoglobin (Bld) [Mass fraction] 1.0 % Normal 0.0-1.5 [facility] Comment on above: Order Comment: Speci men Type: ARTERIAL BLOOD SPECIMENOrdering Facility: [facility] Address: [address] [place] [address] Performed By: #### A LLBG ####[facility]ORATORYCLIA [id number] [address] O2 THERAPY Ventilator Normal [facility] Comment on above: Order Comment: Speci men Type: ARTERIAL BLOOD SPECIMENOrdering Facility: [facility] Address: [address] [place] [address] Performed By: #### A LLBG ####[facility]ORATORYCLIA [id number] [address] Oxygen (Bld) [Partial pressure] 78 mm Hg Low 85-95 [facility] Comment on above: Order Comment: Speci men Type: ARTERIAL BLOOD SPECIMENOrdering Facility: [facility] Address: [address] [place] [address] Performed By: #### A LLBG ####[facility]ATORYCLIA [id number] [address] Oxygen adjusted to patient's actual temperature (Bld) [Partial pressure] 79.7 mmHg Low 85-95 [facility] Comment on above: Order Comment: Speci men Type: ARTERIAL BLOOD SPECIMENOrdering Facility: [facility] Address: [address] [place] [address] Performed By: #### A LLBG ####[facility]ATORYCLIA [id number] [address] [place] OXYGEN SATURATION, ARTERIAL 96 % Normal 95-98 [facility] Comment on above: Order Comment: Speci men Type: ARTERIAL BLOOD SPECIMENOrdering Facility: [facility] Address: [address] [place] [address] Performed By: #### A LLBG ####[facility] LABORATORYCLIA [id number] [address] [place] Oxyhemoglobin (BldA) [Mass fraction] 94 % Low 95-98 [facility] Comment on above: Order Comment: Speci men Type: ARTERIAL BLOOD SPECIMENOrdering Facility: [facility] Address: [address] [place] [address] Performed By: #### A LLBG ####[facility] LABORATORYCLIA [id number] [place] [address] [place] pH (Bld) 7.47 [pH] High 7.35-7.45 [facility] Comment on above: Order Comment: Speci men Type: ARTERIAL BLOOD SPECIMENOrdering Facility: [facility] Address: [address] [place] [address] Performed By: #### A LLBG ####[facility]ORATORYCLIA [id number] [address] pH adjusted to patient's actual temperature (Bld) 7.46 High 7.35-7.45 [facility] Comment on above: Order Comment: Speci men Type: ARTERIAL BLOOD SPECIMENOrdering Facility: [facility] Address: [address] [place] [address] Performed By: #### A LLBG ####[facility] LABORATORYCLIA [id number] [address] [place] Potassium [Moles/Vol] 3.7 mmol/L Normal 3.5-5.0 [facility] Comment on above: Order Comment: Speci men Type: ARTERIAL BLOOD SPECIMENOrdering Facility: [facility] Address: [address] [place] [address] Performed By: #### A LLBG ####[facility] LABORATORYCLIA [id number] [place] [address] [place] Sodium [Moles/Vol] 155 mmol/L High 136-144 [facility] Comment on above: Order Comment: Speci men Type: ARTERIAL BLOOD SPECIMENOrdering Facility: [facility] Address: [address] [place] [address] Performed By: #### A LLBG ####[facility] LABORATORYCLIA [id number] [place] [address] [place] Bacteria Spec Resp Culton Bacteria identified Respiratory culture Nom (Unsp spec) CULTURE, RESPIRATORY: Rare Normal respiratory chris present ORGANISM ID: 1 Few Yeast, not cryptococcus neoformans GRAM STAIN: No organisms seen Few Polymorphonuclear leukocytes Few Epithelial cells Abnormal [facility] Comment on above: Performed By: #### 3 2355-0 ####[facility]ORATORYCLIA [id number] [place] [address] [place] Basic metabolic 2000 panelon 06-16-2021 Anion gap [Moles/Vol] 9 mmol/L Normal 9-18 [facility] Comment on above: Order Comment: Speci men Type: BLOOD SPECIMENOrdering Facility: [facility] Address: [address] [place] [address] Performed By: #### 2 4321-2 ####[facility]ORATORYCLIA [id number] [place] [address] [place] Calcium [Mass/Vol] 8.4 mg/dL Low 8.5-10.2 [facility] Comment on above: Order Comment: Speci men Type: BLOOD SPECIMENOrdering Facility: [facility] Address: [address] [place] [address] Performed By: #### 2 4321-2 ####[facility] LABORATORYCLIA [id number] [place] [address] [place] Chloride [Moles/Vol] 120 mmol/L High 97-105 [facility] Comment on above: Order Comment: Speci men Type: BLOOD SPECIMENOrdering Facility: [facility] Address: [address] [place] [address] Performed By: #### 2 4321-2 ####[facility]ORATORYCLIA [id number] [place] [address] [place] CO2 [Moles/Vol] 27 mmol/L Normal 22-30 [facility] Comment on above: Order Comment: Speci men Type: BLOOD SPECIMENOrdering Facility: [facility] Address: [address] [place] [address] Performed By: #### 2 4321-2 ####[facility]ORATORYCLIA [id number] [place] [address] [place] Creatinine [Mass/Vol] 0.75 mg/dL Normal 0.73-1.22 [facility] Comment on above: Order Comment: Speci men Type: BLOOD SPECIMENOrdering Facility: [facility] Address: [address] [place] [address] Performed By: #### 2 4321-2 ####[facility] HOSPITALIA [id number] [place] [address] [place] GFR/1.73 sq M.predicted MDRD (S/P/Bld) [Vol rate/Area] mL/min/{1.73_m2} Normal [facility] Comment on above: Order Comment: Speci francia Type: BLOOD SPECIMENOrdering Facility: [facility] Address: [address] [place] [address] Result Comment: >60e GFR (Estimated GFR) Units [...] actual GFR. Performed By: #### 2 4321-2 ####[facility] LABORATORYCLIA [id number] [place] [address] [place] Glucose [Mass/Vol] 160 mg/dL High 74-99 [facility] Comment on above: Order Comment: Speci men Type: BLOOD SPECIMENOrdering Facility: [facility] Address: [address] [place] [address] Result Comment: The [place] [employer] (ADA) provides guidance for cutoff [...] Standards of Medical Care in Diabetes 2016, [place] [employer]. Diabetes Care. 2016.39(Suppl 1). Performed By: #### 2 4321-2 ####[facility]ORATORYCLIA [id number] [place] [address] [place] Potassium [Moles/Vol] 3.1 mmol/L Low 3.7-5.1 [facility] Comment on above: Order Comment: [facility] Type: BLOOD SPECIMENOrdering Facility: [facility] Address: [address] [address] Performed By: #### 2 4321-2 ####[facility]ORATORYCLIA [id number] [place] [address] [place] Sodium [Moles/Vol] 156 mmol/L High 136-144 [facility] Comment on above: Order Comment: Johni men Type: BLOOD SPECIMENOrdering Facility: [facility] Address: [address] [address] Performed By: #### 2 4321-2 ####[facility]ORATORYCLIA [id number] [place] [address] [place] Urea nitrogen [Mass/Vol] 33 mg/dL High 9-24 [facility] Comment on above: Order Comment: [facility]i [facility] Type: BLOOD SPECIMENOrdering Facility: [facility] Address: [address] [address] Performed By: #### 2 4321-2 ####[facility]ORATORYCLIA [id number] [address] CASE MANAGEMon 06-16-2021 CASE MANAGEM Normal [facility] CBC panel Auto (Bld)on 06-16 Erythrocyte distribution width (RBC) [Ratio] 15.9 % High 11.5-15.0 [facility] Comment on above: Order Comment: Speci men Type: BLOOD SPECIMENOrdering Facility: [facility] Address: [address] [place] [address] Performed By: #### 5 8410-2 ####[facility]ORATORYCLIA [id number] [address] Hematocrit (Bld) [Volume fraction] 34.6 % Low 39.0-51.0 [facility] Comment on above: Order Comment: Speci men Type: BLOOD SPECIMENOrdering Facility: [facility] Address: [address] [place] [address] Performed By: #### 5 8410-2 ####[facility]ORATORYCLIA [id number] [address] Hemoglobin (Bld) [Mass/Vol] 10.2 g/dL Low 13.0-17.0 [facility] Comment on above: Order Comment: Speci men Type: BLOOD SPECIMENOrdering Facility: [facility] Address: [address] [place] [address] Performed By: #### 5 8410-2 ####[facility]ORATORYCLIA [id number] [address] MCH (RBC) [Entitic mass] 28.5 pg Normal 26.0-34.0 [facility] Comment on above: Order Comment: Speci men Type: BLOOD SPECIMENOrdering Facility: [facility] Address: [address] [place] [address] Performed By: #### 5 8410-2 ####[facility]ORATORYCLIA [id number] [place] [address] MCHC (RBC) [Mass/Vol] 29.5 g/dL Low 30.5-36.0 [facility] Comment on above: Order Comment: Speci men Type: BLOOD SPECIMENOrdering Facility: [facility] Address: [address] [place] [address] Performed By: #### 5 8410-2 ####[facility]ORATORYCLIA [id number] [address] [place] MCV (RBC) [Entitic vol] 96.6 fL Normal 80.0-100.0 [facility] Comment on above: Order Comment: Speci men Type: BLOOD SPECIMENOrdering Facility: [facility] Address: [address] [place] [address] Performed By: #### 5 8410-2 ####[facility]ORATORYCLIA [id number] [address] Nucleated RBC (Bld) [#/Vol] 10*3/uL Normal <0.01 [facility] Comment on above: Order Comment: Speci men Type: BLOOD SPECIMENOrdering Facility: [facility] Address: [address] [place] [address] Performed By: #### 5 8410-2 ####[facility]ORATORYCLIA [id number] [address] [place] Platelet mean volume (Bld) [Entitic vol] 11.9 fL Normal 9.0-12.7 [facility] Comment on above: Order Comment: Speci men Type: BLOOD SPECIMENOrdering Facility: [facility] Address: [address] [place] [address] Performed By: #### 5 8410-2 ####[facility] LABORATORYCLIA [id number] [address] [place] Platelets (Bld) [#/Vol] 269 10*3/uL Normal 150-400 [facility] Comment on above: Order Comment: Speci men Type: BLOOD SPECIMENOrdering Facility: [facility] Address: [address] [address] Performed By: #### 5 8410-2 ####[facility] LABORATORYCLIA [id number] [address] [place] RBC (Bld) [#/Vol] 3.58 10*6/uL Low 4.20-6.00 [facility] Comment on above: Order Comment: Speci men Type: BLOOD SPECIMENOrdering Facility: [facility] Address: [address] [place] [address] Performed By: #### 5 8410-2 ####[facility] LABORATORYCLIA [id number] [address] STATES OF [facility] WBC (Bld) [#/Vol] 13.11 10*3/uL High 3.70-11.00 [facility] Comment on above: Order Comment: Speci men Type: BLOOD SPECIMENOrdering Facility: [facility] Address: [address] [place] [address] Performed By: #### 5 8410-2 ####[facility] LABORATORYCLIA [id number] [address] [place] CONSULTon 06-16-2021 CONSULT Normal [facility] CONSULT PROGon 06-16-2021 CONSULT PROG Normal [facility] CT BRAIN WO IVCONon 06-16-[address] BRAIN WO IVCON Normal [facility] HEMOGLOBIN (HGB)on 2 Hemoglobin (Bld) [Mass/Vol] 8.9 g/dL Low 13.0-17.0 [facility] Comment on above: Order Comment: Speci men Type: BLOOD SPECIMENOrdering Facility: [facility] Address: [address] [place] [address] Performed By: #### H GB ####[facility] LABORATORYCLIA [id number] [address] STATES OF [facility] Hemoglobin (Bld) [Mass/Vol] 9.6 g/dL Low 13.0-17.0 [facility] Comment on above: Order Comment: Speci men Type: BLOOD SPECIMENOrdering Facility: [facility] Address: [address] [place] [address] Performed By: #### H GB ####[facility] LABORATORYCLIA [id number] [place] [address] [place] Magnesium SerPl-mCncon 06-16 Magnesium [Mass/Vol] 2.7 mg/dL High 1.7-2.3 [facility] Comment on above: Order Comment: Speci men Type: BLOOD SPECIMENOrdering Facility: [facility] Address: [address] [place] [address] Performed By: #### 1 9123-9 ####[facility] LABORATORYCLIA [id number] [place] [address] [place] NURSING PROGon 06-16-2021 NURSING PROG Normal [facility] NUTRITIONon 06-16-2021 NUTRITION Normal [facility] Phosphate SerPl-mCncon 06-16 Phosphate [Mass/Vol] 1.4 mg/dL Low 2.7-4.8 [facility] Comment on above: Order Comment: Speci men Type: BLOOD SPECIMENOrdering Facility: [facility] Address: [address] [place] [address] Performed By: #### 2 777-1 ####[facility] LABORATORYCLIA [id number] [address] [place] STAPH AUREUS PCRon 2 S. aureus and MRSA panel MEGAN+probe (Nose) Normal Negative [facility] Comment on above: Order Comment: Speci men Type: SWAB OF INTERNAL NOSEOrdering Facility: [facility] Address: [address] [place] [address] Result Comment: Nega tive for Staphylococcus aureus by PCR.Negative for MRSA by PCR Performed By: #### S APCR ####[facility] LABORATORYCLIA [id number] [place] [address] [place] Sodium SerPl-sCncon 06-16-19 Sodium [Moles/Vol] 150 mmol/L High 136-144 [facility] Comment on above: Order Comment: Speci men Type: BLOOD SPECIMENOrdering Facility: [facility] Address: [address] [place] [address] Performed By: #### 2 951-2 ####[facility] LABORATORYCLIA [id number] [address] [place] Sodium [Moles/Vol] 153 mmol/L High 136-144 [facility] Comment on above: Order Comment: Speci men Type: BLOOD SPECIMENOrdering Facility: [facility] Address: [address] [place] [address] Performed By: #### 2 951-2 ####[facility] LABORATORYCLIA [id number] [address] STATES OF [facility] Sodium [Moles/Vol] 158 mmol/L High 136-144 [facility] Comment on above: Order Comment: Speci men Type: BLOOD SPECIMENOrdering Facility: [facility] Address: [address] [place] [address] Performed By: #### 2 951-2 ####[facility] LABORATORYCLIA [id number] [address] [place] aPTT PPPon 06-16-2021 aPTT Coag (PPP) [Time] 61.8 s High 23.0-32.4 [facility] Comment on above: Order Comment: Speci men Type: BLOOD SPECIMENOrdering Facility: [facility] Address: [address] [place] [address] Performed By: #### 1 4979-9 ####[facility] LABORATORYCLIA [id number] [address] [place] aPTT Coag (PPP) [Time] 57.6 s High 23.0-32.4 [facility] Comment on above: Order Comment: Speci men Type: BLOOD SPECIMENOrdering Facility: [facility] Address: [address] [place] [address] Performed By: #### 1 4979-9 ####[facility]ORATORYCLIA [id number] [place] [address] [place] ALLIED HEALTHon 06-15-2021 ALLIED HEALTH Normal [facility] ALLIED HEALTH Normal [facility] ALLIED HEALTH Normal [facility] ALLIED HEALTH Normal [facility] ARTERIAL BLOOD GASESon 06-15 Base excess Calc (Bld) [Moles/Vol] 3 mmol/L High 0-2 [facility] Comment on above: Order Comment: Speci men Type: ARTERIAL BLOOD SPECIMENOrdering Facility: [facility] Address: [address] [place] [address] Performed By: #### A LLBG ####[facility] LABORATORYCLIA [id number] [address] Body temperature 99.5 [degF] Normal [facility] Comment on above: Order Comment: Speci men Type: ARTERIAL BLOOD SPECIMENOrdering Facility: [facility] Address: [address] [place] [address] Performed By: #### A LLBG ####[facility] LABORATORYCLIA [id number] [place] [address] [place] CALCIUM IONIZED, PH CORRECTED 1.34 mmol/L High 1.08-1.30 [facility] Comment on above: Order Comment: Speci men Type: ARTERIAL BLOOD SPECIMENOrdering Facility: [facility] Address: [address] [place] [address] Performed By: #### A LLBG ####[facility] LABORATORYCLIA [id number] [place] [address] [place] Calcium.ionized (BldV) [Mass/Vol] 1.29 mmol/L Normal 1.08-1.30 [facility] Comment on above: Order Comment: Speci men Type: ARTERIAL BLOOD SPECIMENOrdering Facility: [facility] Address: [address] [place] [address] Performed By: #### A LLBG ####[facility] LABORATORYCLIA [id number] [address] [place] Carboxyhemoglobin (BldA) [Mass fraction] 1.3 % Normal 0.0-2.0 [facility] Comment on above: Order Comment: Speci men Type: ARTERIAL BLOOD SPECIMENOrdering Facility: [facility] Address: [address] [address] Result Comment: Carb oxyhemoglobin Reference Range for Smokers: 2.0-8.0% Performed By: #### A LLBG ####[facility]ORATORYCLIA [id number] [address] [place] CO2 (Bld) [Partial pressure] 37 mm Hg Normal 36-46 [facility] Comment on above: Order Comment: Speci men Type: ARTERIAL BLOOD SPECIMENOrdering Facility: [facility] Address: [address] [place] [address] Performed By: #### A LLBG ####[facility] LABORATORYCLIA [id number] [address] [place] CO2 [Moles/Vol] 24.6 mmol/L Normal 22-28 [facility] Comment on above: Order Comment: Speci men Type: ARTERIAL BLOOD SPECIMENOrdering Facility: [facility] Address: [address] [place] [address] Performed By: #### A LLBG ####[employer] [facility] LABORATORYCLIA [id number] [address] [place] CO2 adjusted to patient's actual temperature (Bld) [Partial pressure] 38 mmHg Normal 36-46 [facility] Comment on above: Order Comment: Speci men Type: ARTERIAL BLOOD SPECIMENOrdering Facility: [facility] Address: [address] [address] Performed By: #### A LLBG ####[facility]ORATORYCLIA [id number] [address] [place] FIO2 100 % Normal [facility] Comment on above: Order Comment: Speci men Type: ARTERIAL BLOOD SPECIMENOrdering Facility: [facility] Address: [address] [address] Performed By: #### A LLBG ####[facility]ORATORYCLIA [id number] [address] [place] Glucose [Mass/Vol] 159 mg/dL High 60-105 [facility] Comment on above: Order Comment: Speci men Type: ARTERIAL BLOOD SPECIMENOrdering Facility: [facility] Address: [address] [address] Performed By: #### A LLBG ####[facility] LABORATORYCLIA [id number] [place] [address] [place] HCO3 (Bld) [Moles/Vol] 27 mmol/L High 22-26 [facility] Comment on above: Order Comment: Speci men Type: ARTERIAL BLOOD SPECIMENOrdering Facility: [facility] Address: [address] [place] [address] Performed By: #### A LLBG ####[facility] LABORATORYCLIA [id number] [address] [place] Hematocrit (Bld) [Volume fraction] 31.0 % Low 39.0-51.0 [facility] Comment on above: Order Comment: Speci men Type: ARTERIAL BLOOD SPECIMENOrdering Facility: [facility] Address: [address] [place] [address] Performed By: #### A LLBG ####[facility] LABORATORYCLIA [id number] [address] [place] Hemoglobin (Bld) [Mass/Vol] 10.0 g/dL Low 13.0-17.0 [facility] Comment on above: Order Comment: Speci men Type: ARTERIAL BLOOD SPECIMENOrdering Facility: [facility] Address: [address] [address] Performed By: #### A LLBG ####[facility] LABORATORYCLIA [id number] [address] [place] Methemoglobin (Bld) [Mass fraction] % Normal 0.0-1.5 [facility] Comment on above: Order Comment: Speci men Type: ARTERIAL BLOOD SPECIMENOrdering Facility: [facility] Address: [address] [place], [place] [address] Performed By: #### A LLBG ####[facility]ORATORYCLIA [id number] [address] O2 THERAPY Ventilator Normal [facility] Comment on above: Order Comment: Speci men Type: ARTERIAL BLOOD SPECIMENOrdering Facility: [facility] Address: [address] [address] Performed By: #### A LLBG ####[facility]ORATORYCLIA [id number] [address] [place] Oxygen (Bld) [Partial pressure] 279 mm Hg High 85-95 [facility] Comment on above: Order Comment: Speci men Type: ARTERIAL BLOOD SPECIMENOrdering Facility: [facility] Address: [address] [address] Performed By: #### A LLBG ####[facility] LABORATORYCLIA [id number] [address] Oxygen adjusted to patient's actual temperature (Bld) [Partial pressure] 281 mmHg High 85-95 [facility] Comment on above: Order Comment: Speci men Type: ARTERIAL BLOOD SPECIMENOrdering Facility: [facility] Address: [facility] [address] Performed By: #### A LLBG ####[facility] LABORATORYCLIA [id number] [address] [place] OXYGEN SATURATION, ARTERIAL 100 % High 95-98 [facility] Comment on above: Order Comment: Speci men Type: ARTERIAL BLOOD SPECIMENOrdering Facility: [facility] Address: [address] [address] Performed By: #### A LLBG ####[facility]ORATORYCLIA [id number] [address] Oxyhemoglobin (BldA) [Mass fraction] 98 % Normal 95-98 [facility] Comment on above: Order Comment: Speci men Type: ARTERIAL BLOOD SPECIMENOrdering Facility: [facility] Address: [address] [place] [address] Performed By: #### A LLBG ####[facility] LABORATORYCLIA [id number] [address] [place] pH (Bld) 7.47 [pH] High 7.35-7.45 [facility] Comment on above: Order Comment: Speci men Type: ARTERIAL BLOOD SPECIMENOrdering Facility: [facility] Address: [address] [place] [address] Performed By: #### A LLBG ####[facility] LABORATORYCLIA [id number] [address] pH adjusted to patient's actual temperature (Bld) 7.46 High 7.35-7.45 [facility] Comment on above: Order Comment: Speci men Type: ARTERIAL BLOOD SPECIMENOrdering Facility: [facility] Address: [address] [place] [address] Performed By: #### A LLBG ####[facility] LABORATORYCLIA [id number] [address] [place] Potassium [Moles/Vol] 3.6 mmol/L Normal 3.5-5.0 [facility] Comment on above: Order Comment: Speci men Type: ARTERIAL BLOOD SPECIMENOrdering Facility: [facility] Address: [address] [place] [address] Performed By: #### A LLBG ####[facility] LABORATORYCLIA [id number] [address] [place] Sodium [Moles/Vol] 162 mmol/L High 136-144 [facility] Comment on above: Order Comment: Speci men Type: ARTERIAL BLOOD SPECIMENOrdering Facility: [facility] Address: [address] [place] [address] Performed By: #### A LLBG ####[facility] LABORATORYCLIA [id number] [place] [address] [place] Base excess Calc (Bld) [Moles/Vol] 4 mmol/L High 0-2 [facility] Comment on above: Order Comment: Speci men Type: ARTERIAL BLOOD SPECIMENOrdering Facility: [facility] Address: [address] [place] [address] Performed By: #### A LLBG ####[facility] LABORATORYCLIA [id number] [address] Body temperature 100.58 [degF] Normal [facility] Comment on above: Order Comment: Speci men Type: ARTERIAL BLOOD SPECIMENOrdering Facility: [facility] Address: [address] [place] [address] Performed By: #### A LLBG ####[facility] LABORATORYCLIA [id number] [address] [place] CALCIUM IONIZED, PH CORRECTED 1.34 mmol/L High 1.08-1.30 [facility] Comment on above: Order Comment: Speci men Type: ARTERIAL BLOOD SPECIMENOrdering Facility: [facility] Address: [address] [place] [address] Performed By: #### A LLBG ####[facility] LABORATORYCLIA [id number] [address] [place] Calcium.ionized (BldV) [Mass/Vol] 1.33 mmol/L High 1.08-1.30 [facility] Comment on above: Order Comment: Speci men Type: ARTERIAL BLOOD SPECIMENOrdering Facility: [facility] Address: [address] [place] [address] Performed By: #### A LLBG ####[facility] LABORATORYCLIA [id number] [address] Carboxyhemoglobin (BldA) [Mass fraction] 1.5 % Normal 0.0-2.0 [facility] Comment on above: Order Comment: Speci men Type: ARTERIAL BLOOD SPECIMENOrdering Facility: [facility] Address: [address] [place] [address] Result Comment: Carb oxyhemoglobin Reference Range for Smokers: 2.0-8.0% Performed By: #### A LLBG ####[facility]ORATORYCLIA [id number] [address] CO2 (Bld) [Partial pressure] 46 mm Hg Normal 36-46 [facility] Comment on above: Order Comment: Speci men Type: ARTERIAL BLOOD SPECIMENOrdering Facility: [facility] Address: [address] [place] [address] Performed By: #### A LLBG ####[facility]ORATORYCLIA [id number] [address] [place] CO2 [Moles/Vol] 26.4 mmol/L Normal 22-28 [facility] Comment on above: Order Comment: Speci men Type: ARTERIAL BLOOD SPECIMENOrdering Facility: [facility] Address: [address] [place] [address] Performed By: #### A LLBG ####[facility] LABORATORYCLIA [id number] [address] CO2 adjusted to patient's actual temperature (Bld) [Partial pressure] 48 mmHg High 36-46 [facility] Comment on above: Order Comment: Speci men Type: ARTERIAL BLOOD SPECIMENOrdering Facility: [facility] Address: [address] [place] [address] Performed By: #### A LLBG ####[facility] LABORATORYCLIA [id number] [address] [place] FIO2 100 % Normal [facility] Comment on above: Order Comment: Speci men Type: ARTERIAL BLOOD SPECIMENOrdering Facility: [facility] Address: [address] [place] [address] Performed By: #### A LLBG ####[facility]ATORYCLIA [id number] [address] [place] Glucose [Mass/Vol] 132 mg/dL High 60-105 [facility] Comment on above: Order Comment: Speci men Type: ARTERIAL BLOOD SPECIMENOrdering Facility: [facility] Address: [address] [place] [address] Performed By: #### A LLBG ####[facility]ATORYCLIA [id number] [address] [place] HCO3 (Bld) [Moles/Vol] 29 mmol/L High 22-26 [facility] Comment on above: Order Comment: Speci men Type: ARTERIAL BLOOD SPECIMENOrdering Facility: [facility] Address: [address] [place] [address] Performed By: #### A LLBG ####[facility] LABORATORYCLIA [id number] [address] OF [facility] Hematocrit (Bld) [Volume fraction] 32.3 % Low 39.0-51.0 [facility] Comment on above: Order Comment: Speci men Type: ARTERIAL BLOOD SPECIMENOrdering Facility: [facility] Address: [address] [place] [address] Performed By: #### A LLBG ####[facility] LABORATORYCLIA [id number] [address] [place] Hemoglobin (Bld) [Mass/Vol] 10.4 g/dL Low 13.0-17.0 [facility] Comment on above: Order Comment: Speci men Type: ARTERIAL BLOOD SPECIMENOrdering Facility: [facility] Address: [address] [place] [address] Performed By: #### A LLBG ####[facility] LABORATORYCLIA [id number] [address] Methemoglobin (Bld) [Mass fraction] % Normal 0.0-1.5 [facility] Comment on above: Order Comment: Speci men Type: ARTERIAL BLOOD SPECIMENOrdering Facility: [facility] Address: [address] [place] [address] Performed By: #### A LLBG ####[facility] LABORATORYCLIA [id number] [address] O2 THERAPY NR=Non-Rebreather Mask Normal [facility] Comment on above: Order Comment: Speci men Type: ARTERIAL BLOOD SPECIMENOrdering Facility: [facility] Address: [address] [place] [address] Performed By: #### A LLBG ####[facility] LABORATORYCLIA [id number] [address] [place] Oxygen (Bld) [Partial pressure] 130 mm Hg High 85-95 [facility] Comment on above: Order Comment: Speci men Type: ARTERIAL BLOOD SPECIMENOrdering Facility: [facility] Address: [address] [place] [address] Performed By: #### A LLBG ####[facility] LABORATORYCLIA [id number] [address] [place] Oxygen adjusted to patient's actual temperature (Bld) [Partial pressure] 136 mmHg High 85-95 [facility] Comment on above: Order Comment: Speci men Type: ARTERIAL BLOOD SPECIMENOrdering Facility: [facility] Address: [address] [place] [address] Performed By: #### A LLBG ####[facility] LABORATORYCLIA [id number] [address] [place] OXYGEN SATURATION, ARTERIAL 99 % High 95-98 [facility] Comment on above: Order Comment: Speci men Type: ARTERIAL BLOOD SPECIMENOrdering Facility: [facility] Address: [address] [place] [address] Performed By: #### A LLBG ####[facility] LABORATORYCLIA [id number] [address] [place] Oxyhemoglobin (BldA) [Mass fraction] 97 % Normal 95-98 [facility] Comment on above: Order Comment: Speci men Type: ARTERIAL BLOOD SPECIMENOrdering Facility: [facility] Address: [address] [address] Performed By: #### A LLBG ####[facility] LABORATORYCLIA [id number] [address] [place] pH (Bld) 7.41 [pH] Normal 7.35-7.45 [facility] Comment on above: Order Comment: Speci men Type: ARTERIAL BLOOD SPECIMENOrdering Facility: [facility] Address: [address] [place] [address] Performed By: #### A LLBG ####[facility] LABORATORYCLIA [id number] [address] [facility] pH adjusted to patient's actual temperature (Bld) 7.40 Normal 7.35-7.45 [facility] Comment on above: Order Comment: Speci men Type: ARTERIAL BLOOD SPECIMENOrdering Facility: [facility] Address: [address] [place] [address] Performed By: #### A LLBG ####[facility] LABORATORYCLIA [id number] [address] OF [facility] Potassium [Moles/Vol] 3.8 mmol/L Normal 3.5-5.0 [facility] Comment on above: Order Comment: Speci men Type: ARTERIAL BLOOD SPECIMENOrdering Facility: [facility] Address: [address] [place] [address] Performed By: #### A LLBG ####[facility] LABORATORYCLIA [id number] [address] [facility] Sodium [Moles/Vol] 166 mmol/L High 136-144 [facility] Comment on above: Order Comment: Speci men Type: ARTERIAL BLOOD SPECIMENOrdering Facility: [facility] Address: [address] [place] [address] Performed By: #### A LLBG ####[facility] LABORATORYCLIA [id number] [address] [place] Bacteria Bld Culton 06-15-19 22 Bacteria identified Cx Nom (Bld) CULTURE, BLOOD: No growth 5 days Normal [facility] Comment on above: Performed By: #### 6 00-7 ####[facility] LABORATORYCLIA [id number] [address] [place] Basic metabolic 2000 panelon 06-15-2021 Anion gap [Moles/Vol] 9 mmol/L Normal 9-18 [facility] Comment on above: Order Comment: Speci men Type: BLOOD SPECIMEN Performed By: #### 2 4321-2, 2776-05, ####[facility] LABORATORYCLIA [id number] [place], [place] [id number] [place] [address] STATES OF [facility] Calcium [Mass/Vol] 9.0 mg/dL Normal 8.5-10.2 [facility] Comment on above: Order Comment: Speci men Type: BLOOD SPECIMEN Performed By: #### 2 4321-2, 2776-05, ####[facility] LABORATORYCLIA [id number] [place], [place] [address] [place] [address] [place] Chloride [Moles/Vol] 125 mmol/L High 97-105 [facility] Comment on above: Order Comment: Speci men Type: BLOOD SPECIMEN Performed By: #### 2 4321-2, 2776-05, ####[facility] LABORATORYCLIA [id number] [address] [place] CO2 [Moles/Vol] 29 mmol/L Normal 22-30 [facility] Comment on above: Order Comment: Speci men Type: BLOOD SPECIMEN Performed By: #### 2 4321-2, 2776-05, ####[facility] LABORATORYCLIA [id number] [address] [place] Creatinine [Mass/Vol] 0.81 mg/dL Normal 0.73-1.22 [facility] Comment on above: Order Comment: Speci men Type: BLOOD SPECIMEN Performed By: #### 2 4321-2, 2776-05, ####[facility] LABORATORYCLIA [id number] [place] [address] [place] GFR/1.73 sq M.predicted MDRD (S/P/Bld) [Vol rate/Area] mL/min/{1.73_m2} Normal [facility] Comment on above: Order [...] GFR. Performed By: #### 2 4321-2, 2776-05, ####[facility] LABORATORYCLIA [id number] [place] [address] [place] Glucose [Mass/Vol] 124 mg/dL High 74-99 [facility] Comment on above: Order Comment: Speci men Type: BLOOD SPECIMEN Result Comment: The [place] Diabetes Association (ADA) provides guidance for cutoff [...] Standards of Medical Care in Diabetes 2016, [place] [employer]. Diabetes Care. 2016.39(Suppl 1). Performed By: #### 2 4321-2, 2776-05, ####[facility] LABORATORYCLIA [id number] [address] [place] Potassium [Moles/Vol] 3.8 mmol/L Normal 3.7-5.1 [facility] Comment on above: Order Comment: Speci men Type: BLOOD SPECIMEN Performed By: #### 2 4321-2, 2776-05, ####[facility] LABORATORYCLIA [id number] [address] [place] Sodium [Moles/Vol] 163 mmol/L High 136-144 [facility] Comment on above: Order Comment: Speci men Type: BLOOD SPECIMEN Performed By: #### 2 4321-2, 2776-1, ####[facility] LABORATORYCLIA [id number] [address] Urea nitrogen [Mass/Vol] 35 mg/dL High 9-24 [facility] Comment on above: Order Comment: Speci men Type: BLOOD SPECIMEN Performed By: #### 2 4321-2, 2776-, ####[facility] LABORATORYCLIA [id number] [address] CBC panel Auto (Bld)on 06-15 Erythrocyte distribution width (RBC) [Ratio] 16.3 % High 11.5-15.0 [facility] Comment on above: Order Comment: Speci men Type: BLOOD SPECIMENOrdering Facility: [facility] Address: [address] [place] [address] Performed By: #### 5 8410-2 ####[facility] LABORATORYCLIA [id number] [address] Hematocrit (Bld) [Volume fraction] 30.0 % Low 39.0-51.0 [facility] Comment on above: Order Comment: Speci men Type: BLOOD SPECIMENOrdering Facility: [facility] Address: [address] [place] [address] Performed By: #### 5 8410-2 ####[facility] LABORATORYCLIA [id number] [address] Hemoglobin (Bld) [Mass/Vol] 8.9 g/dL Low 13.0-17.0 [facility] Comment on above: Order Comment: Speci men Type: BLOOD SPECIMENOrdering Facility: [facility] Address: [address] [place] [address] Performed By: #### 5 8410-2 ####[facility] LABORATORYCLIA [id number] [address] MCH (RBC) [Entitic mass] 28.7 pg Normal 26.0-34.0 [facility] Comment on above: Order Comment: Speci men Type: BLOOD SPECIMENOrdering Facility: [facility] Address: [address] [place] [address] Performed By: #### 5 8410-2 ####[facility] LABORATORYCLIA [id number] [address] MCHC (RBC) [Mass/Vol] 29.7 g/dL Low 30.5-36.0 [facility] Comment on above: Order Comment: Speci men Type: BLOOD SPECIMENOrdering Facility: [facility] Address: [address] [place] [address] Performed By: #### 5 8410-2 ####[facility] LABORATORYCLIA [id number] [address] [facility] MCV (RBC) [Entitic vol] 96.8 fL Normal 80.0-100.0 [facility] Comment on above: Order Comment: Speci men Type: BLOOD SPECIMENOrdering Facility: [facility] Address: [address] [place] [address] Performed By: #### 5 8410-2 ####[facility] LABORATORYCLIA [id number] [address] Nucleated RBC (Bld) [#/Vol] 10*3/uL Normal <0.01 [facility] Comment on above: Order Comment: Speci men Type: BLOOD SPECIMENOrdering Facility: [facility] Address: [address] [place] [address] Performed By: #### 5 8410-2 ####[facility] LABORATORYCLIA [id number] [address] Platelet mean volume (Bld) [Entitic vol] 12.3 fL Normal 9.0-12.7 [facility] Comment on above: Order Comment: Speci men Type: BLOOD SPECIMENOrdering Facility: [facility] Address: [address] [place] [address] Performed By: #### 5 8410-2 ####[facility] LABORATORYCLIA [id number] [address] [place] Platelets (Bld) [#/Vol] 226 10*3/uL Normal 150-400 [facility] Comment on above: Order Comment: Speci men Type: BLOOD SPECIMENOrdering Facility: [facility] Address: [address] [place] [address] Performed By: #### 5 8410-2 ####[facility] LABORATORYCLIA [id number] [address] OF [facility] RBC (Bld) [#/Vol] 3.10 10*6/uL Low 4.20-6.00 [facility] Comment on above: Order Comment: Speci men Type: BLOOD SPECIMENOrdering Facility: [facility] Address: [address] [place] [address] Performed By: #### 5 8410-2 ####[facility] LABORATORYCLIA [id number] [address] WBC (Bld) [#/Vol] 10.77 10*3/uL Normal 3.70-11.00 [facility] Comment on above: Order Comment: Speci men Type: BLOOD SPECIMENOrdering Facility: [facility] Address: [address] [place] [address] Performed By: #### 5 8410-2 ####[facility] LABORATORYCLIA [id number] [address] Erythrocyte distribution width (RBC) [Ratio] 16.2 % High 11.5-15.0 [facility] Comment on above: Order Comment: Speci men Type: BLOOD SPECIMENOrdering Facility: [facility] Address: [address] [place] [address] Performed By: #### 5 8410-2 ####[facility] LABORATORYCLIA [id number] [address] OF [facility] Hematocrit (Bld) [Volume fraction] 34.8 % Low 39.0-51.0 [facility] Comment on above: Order Comment: Speci men Type: BLOOD SPECIMENOrdering Facility: [facility] Address: [address] [place] [address] Performed By: #### 5 8410-2 ####[facility] LABORATORYCLIA [id number] [address] STATES OF [facility] Hemoglobin (Bld) [Mass/Vol] 10.0 g/dL Low 13.0-17.0 [facility] Comment on above: Order Comment: Speci men Type: BLOOD SPECIMENOrdering Facility: [facility] Address: [address] [place] [address] Performed By: #### 5 8410-2 ####[facility] LABORATORYCLIA [id number] [address] STATES OF [facility] MCH (RBC) [Entitic mass] 27.5 pg Normal 26.0-34.0 [facility] Comment on above: Order Comment: Speci men Type: BLOOD SPECIMENOrdering Facility: [facility] Address: [address] [place] [address] Performed By: #### 5 8410-2 ####[facility] LABORATORYCLIA [id number] [address] OF [facility] MCHC (RBC) [Mass/Vol] 28.7 g/dL Low 30.5-36.0 [facility] Comment on above: Order Comment: Speci men Type: BLOOD SPECIMENOrdering Facility: [facility] Address: [address] [place] [address] Performed By: #### 5 8410-2 ####[facility] LABORATORYCLIA [id number] [address] [place] MCV (RBC) [Entitic vol] 95.6 fL Normal 80.0-100.0 [facility] Comment on above: Order Comment: Speci men Type: BLOOD SPECIMENOrdering Facility: [facility] Address: [address] [place] [address] Performed By: #### 5 8410-2 ####[facility] LABORATORYCLIA [id number] [address] [place] Nucleated RBC (Bld) [#/Vol] 10*3/uL Normal <0.01 [facility] Comment on above: Order Comment: Speci men Type: BLOOD SPECIMENOrdering Facility: [facility] Address: [address] [place] [address] Performed By: #### 5 8410-2 ####[facility]ORATORYCLIA [id number] [address] [place] Platelet mean volume (Bld) [Entitic vol] 11.9 fL Normal 9.0-12.7 [facility] Comment on above: Order Comment: Speci men Type: BLOOD SPECIMENOrdering Facility: [facility] Address: [address] [place] [address] Performed By: #### 5 8410-2 ####[facility] LABORATORYCLIA [id number] [address] [place] Platelets (Bld) [#/Vol] 246 10*3/uL Normal 150-400 [facility] Comment on above: Order Comment: Speci men Type: BLOOD SPECIMENOrdering Facility: [facility] Address: [address] [place] [address] Performed By: #### 5 8410-2 ####[facility] LABORATORYCLIA [id number] [address] [place] RBC (Bld) [#/Vol] 3.64 10*6/uL Low 4.20-6.00 [facility] Comment on above: Order Comment: Speci men Type: BLOOD SPECIMENOrdering Facility: [facility] Address: [address] [place] [address] Performed By: #### 5 8410-2 ####[facility] LABORATORYCLIA [id number] [address] [place] WBC (Bld) [#/Vol] 11.45 10*3/uL High 3.70-11.00 [facility] Comment on above: Order Comment: Speci men Type: BLOOD SPECIMENOrdering Facility: [facility] Address: [address] [place] [address] Performed By: #### 5 8410-2 ####[facility] LABORATORYCLIA [id number] [address] Erythrocyte distribution width (RBC) [Ratio] 15.9 % High 11.5-15.0 [facility] Comment on above: Order Comment: Speci men Type: BLOOD SPECIMEN Performed By: #### 5 8410-2 ####[facility] LABORATORYCLIA [id number] [address] Hematocrit (Bld) [Volume fraction] 35.8 % Low 39.0-51.0 [facility] Comment on above: Order Comment: Speci men Type: BLOOD SPECIMEN Performed By: #### 5 8410-2 ####[facility] LABORATORYCLIA [id number] [address] Hemoglobin (Bld) [Mass/Vol] 10.4 g/dL Low 13.0-17.0 [facility] Comment on above: Order Comment: Speci men Type: BLOOD SPECIMEN Performed By: #### 5 8410-2 ####[facility] LABORATORYCLIA [id number] [address] MCH (RBC) [Entitic mass] 28.0 pg Normal 26.0-34.0 [facility] Comment on above: Order Comment: Speci men Type: BLOOD SPECIMEN Performed By: #### 5 8410-2 ####[facility] LABORATORYCLIA [id number] [address] MCHC (RBC) [Mass/Vol] 29.1 g/dL Low 30.5-36.0 [facility] Comment on above: Order Comment: Speci men Type: BLOOD SPECIMEN Performed By: #### 5 8410-2 ####[facility] LABORATORYCLIA [id number] [address] MCV (RBC) [Entitic vol] 96.2 fL Normal 80.0-100.0 [facility] Comment on above: Order Comment: Speci men Type: BLOOD SPECIMEN Performed By: #### 5 8410-2 ####[facility]ORATORYCLIA [id number] [address] Nucleated RBC (Bld) [#/Vol] 10*3/uL Normal <0.01 [facility] Comment on above: Order Comment: Speci men Type: BLOOD SPECIMEN Performed By: #### 5 8410-2 ####[facility] LABORATORYCLIA [id number] [address] Platelet mean volume (Bld) [Entitic vol] 11.6 fL Normal 9.0-12.7 [facility] Comment on above: Order Comment: Speci men Type: BLOOD SPECIMEN Performed By: #### 5 8410-2 ####[facility]ORATORYCLIA [id number] [address] Platelets (Bld) [#/Vol] 265 10*3/uL Normal 150-400 [facility] Comment on above: Order Comment: Speci men Type: BLOOD SPECIMEN Performed By: #### 5 8410-2 ####[facility] LABORATORYCLIA [id number] [address] RBC (Bld) [#/Vol] 3.72 10*6/uL Low 4.20-6.00 [facility] Comment on above: Order Comment: Speci men Type: BLOOD SPECIMEN Performed By: #### 5 8410-2 ####[facility] LABORATORYCLIA [id number] [address] WBC (Bld) [#/Vol] 12.24 10*3/uL High 3.70-11.00 [facility] Comment on above: Order Comment: Speci men Type: BLOOD SPECIMEN Performed By: #### 5 8410-2 ####[facility] LABORATORYCLIA [id number] [address] CONSULTon 06-15-2021 CONSULT Normal [facility] CONSULT Normal [facility] CONSULT Normal [facility] CT BRAIN WO IVCONon 06-15-19 CT BRAIN WO IVCON Normal [facility] CT CHEST W IVCON PEon 2021 CT CHEST W IVCON PE Invalid Interpretation Code [facility] Chloride Unsp time (U) [Mole s/Vol]on 06-15-2021 Chloride (U) [Moles/Vol] 28 mmol/L Normal 16-250 [facility] Comment on above: Order Comment: Speci men Type: URINE SPECIMENOrdering Facility: [facility] Address: [address] [place] [address] Performed By: #### U TPR, 61999-2, 99654-7, 12146-1 ####[facility] LABORATORYCLIA [id number] [address] Comprehensive metabolic 2000 panelon 06-15-2021 Albumin [Mass/Vol] 2.8 g/dL Low 3.9-4.9 [facility] Comment on above: Order Comment: Speci men Type: BLOOD SPECIMENOrdering Facility: [facility] Address: [address] [place] [address] Performed By: #### 2 4323-8 ####[facility] LABORATORYCLIA [id number] [address] ALP [Catalytic activity/Vol] 74 U/L Normal 38-113 [facility] Comment on above: Order Comment: Speci men Type: BLOOD SPECIMENOrdering Facility: [facility] Address: [address] [address] Performed By: #### 2 4323-8 ####[facility] LABORATORYCLIA [id number] [address] ALT With P-5'-P [Catalytic activity/Vol] 50 U/L Normal 10-54 [facility] Comment on above: Order Comment: Speci men Type: BLOOD SPECIMENOrdering Facility: [facility] Address: [address] [place] [address] Performed By: #### 2 4323-8 ####[facility]ORATORYCLIA [id number] [place] [address] [place] Anion gap [Moles/Vol] 12 mmol/L Normal 9-18 [facility] Comment on above: Order Comment: Speci men Type: BLOOD SPECIMENOrdering Facility: [facility] Address: [address] [place] [address] Performed By: #### 2 4323-8 ####[facility] LABORATORYCLIA [id number] [place] [address] [place] AST With P-5'-P [Catalytic activity/Vol] 36 U/L Normal 14-40 [facility] Comment on above: Order Comment: Speci men Type: BLOOD SPECIMENOrdering Facility: [facility] Address: [address] [place] [address] Performed By: #### 2 4323-8 ####[facility] LABORATORYCLIA [id number] [address] [place] Bilirubin [Mass/Vol] 0.5 mg/dL Normal 0.2-1.3 [facility] Comment on above: Order Comment: Speci men Type: BLOOD SPECIMENOrdering Facility: [facility] Address: [address] [place] [address] Performed By: #### 2 4323-8 ####[facility] LABORATORYCLIA [id number] [address] [place] Calcium [Mass/Vol] 8.8 mg/dL Normal 8.5-10.2 [facility] Comment on above: Order Comment: Speci men Type: BLOOD SPECIMENOrdering Facility: [facility] Address: [address] [place] [address] Performed By: #### 2 4323-8 ####[facility] LABORATORYCLIA [id number] [place] [address] [place] Chloride [Moles/Vol] 126 mmol/L High 97-105 [facility] Comment on above: Order Comment: Speci men Type: BLOOD SPECIMENOrdering Facility: [facility] Address: [address] [place] [address] Performed By: #### 2 4323-8 ####[facility] LABORATORYCLIA [id number] [address] [place] CO2 [Moles/Vol] 24 mmol/L Normal 22-30 [facility] Comment on above: Order Comment: Speci men Type: BLOOD SPECIMENOrdering Facility: [facility] Address: [address] [place] [address] Performed By: #### 2 4323-8 ####[facility] LABORATORYCLIA [id number] [place] [address] [place] Creatinine [Mass/Vol] 0.84 mg/dL Normal 0.73-1.22 [facility] Comment on above: Order Comment: Speci men Type: BLOOD SPECIMENOrdering Facility: [facility] Address: [address] [place] [address] Performed By: #### 2 4323-8 ####[facility] LABORATORYCLIA [id number] [place] [address] [place] GFR/1.73 sq M.predicted MDRD (S/P/Bld) [Vol rate/Area] mL/min/{1.73_m2} Normal [facility] Comment on above: Order Comment: Speci men Type: BLOOD SPECIMENOrdering Facility: [facility] Address: [address] [place] [address] Result Comment: >60e GFR (Estimated GFR) Units [...] actual GFR. Performed By: #### 2 4323-8 ####[facility] LABORATORYCLIA [id number] [place] [address] [place] Glucose [Mass/Vol] 142 mg/dL High 74-99 [facility] Comment on above: Order Comment: Shira men Type: BLOOD SPECIMENOrdering Facility: [facility] Address: [address] [place] [address] Result Comment: The [place] Diabetes [employer] (ADA) provides guidance for cutoff [...] Standards of Medical Care in Diabetes 2016, [place] [employer]. Diabetes Care. 2016.39(Suppl 1). Performed By: #### 2 4323-8 ####[facility] LABORATORYCLIA [id number] [place] [address] [place] Potassium [Moles/Vol] 3.8 mmol/L Normal 3.7-5.1 [facility] Comment on above: Order Comment: Shira feldman Type: BLOOD SPECIMENOrdering Facility: [facility] Address: [address] [place] [address] Performed By: #### 2 4323-8 ####[facility] LABORATORYCLIA [id number] [place] [address] [place] Protein [Mass/Vol] 6.1 g/dL Low 6.3-8.0 [facility] Comment on above: Order Comment: Johni men Type: BLOOD SPECIMENOrdering Facility: [facility] Address: [address] [place] [address] Performed By: #### 2 4323-8 ####[facility] LABORATORYCLIA [id number] [place] [address] [place] Sodium [Moles/Vol] 162 mmol/L High 136-144 [facility] Comment on above: Order Comment: Speci men Type: BLOOD SPECIMENOrdering Facility: [facility] Address: [address] [place] [address] Performed By: #### 2 4323-8 ####[facility] LABORATORYCLIA [id number] [place] [address] [place] Urea nitrogen [Mass/Vol] 33 mg/dL High 9-24 [facility] Comment on above: Order Comment: Speci men Type: BLOOD SPECIMENOrdering Facility: [facility] Address: [address] [place] [address] Performed By: #### 2 4323-8 ####[facility] LABORATORYCLIA [id number] [place] [address] [place] Creatinine Unsp time (U) [Ma ss/Vol]on 06-15-2021 Creatinine (U) [Mass/Vol] 87.0 mg/dL Normal 46.8-314.5 [facility] Comment on above: Order Comment: Speci men Type: URINE SPECIMENOrdering Facility: [facility] Address: [address] [place] [address] Performed By: #### U TPR, 61608-9, 49996-1, 56564-0 ####[facility] LABORATORYCLIA [id number] [place] [address] [place] HIGH SENSITIVITY TROPONIN To n 06-15-2021 HIGH SENSITIVITY TAMIKO 23 ng/L High <12 [facility] Comment on above: Order Comment: Speci men Type: BLOOD SPECIMENOrdering Facility: [facility] Address: [address] [place] [address] Result Comment: When assessing risk for acute [...] Performed By: #### P Chelo WHITAKER62-6, HSTNT ####[facility]ITALCLIA [id number] [address] STATES OF [facility] Lactate (Bld) [Moles/Vol]on 06-15-2021 Lactate [Moles/Vol] 0.8 mmol/L Normal 0.5-2.2 [facility] Comment on above: Order Comment: Speci men Type: BLOOD SPECIMENOrdering Facility: [facility] Address: [address] [place] [address] Performed By: #### 3 2693-4 ####[facility]ITALCLIA [id number] [address] [place] Magnesium [facility] Magnesium [Mass/Vol] 3.0 mg/dL High 1.7-2.3 [facility] Comment on above: Order Comment: Speci men Type: BLOOD SPECIMEN Performed By: #### 2 4321-2, 2777-1, 01930-3 ####[facility]ITALCLIA [id number] [address] [place] NT-proBNP [facility] Natriuretic peptide.B prohormone N-Terminal [Mass/Vol] 265 pg/mL High <125 [facility] Comment on above: Order Comment: Speci men Type: BLOOD SPECIMENOrdering Facility: [facility] Address: [address] [place] [address] Performed By: #### P JULIANNE, 99267-5, HSTNT ####[facility] LABORATORYCLIA [id number] [place] [address] [place] Osmolality Uron 06-15-2021 Osmolality (U) [Osmolality] 606 mosm/kg Normal 50-1,200 [facility] Comment on above: Order Comment: Speci men Type: URINE SPECIMENOrdering Facility: [facility] Address: [address] [place] [address] Performed By: #### 2 695-5 ####[facility]ITALCLIA [id number] [address] PROCALCITONIN (LAB)on 2021 Procalcitonin [Mass/Vol] 0.21 ng/mL High <0.09 [facility] Comment on above: Order Comment: Speci men Type: BLOOD SPECIMENOrdering Facility: [facility] Address: [address] [place] [address] Result Comment: For a guided interpretation of test results, please visit the Change in Procalcitonin Calculator, [email or web address]. Performed By: #### P JULIANNE, 2951-2 ####[facility] LABORATORYIA [id number] [address] Procalcitonin [Mass/Vol] 0.17 ng/mL High <0.09 [facility] Comment on above: Order Comment: Speci men Type: BLOOD SPECIMENOrdering Facility: [place] [facility] Address: [address] [place] [address] Result Comment: For a guided interpretation of test results, please visit the Change in Procalcitonin Calculator, [email or web address]. Performed By: #### P JULIANEN, 41704-5, HSTNT ####[facility]ITALIA [id number] [address] PROTEIN RANDOM URon 06-15-19 22 Protein (U) [Mass/Vol] 175 mg/dL High 0-20 [facility] Comment on above: Order Comment: Speci men Type: URINE SPECIMENOrdering Facility: [facility] Address: [address] [place] [address] Performed By: #### U TPR, 28237-2, 95963-7, 12971-3 ####[facility] LABORATORYCLIA [id number] [address] PT panel Coag (PPP)on 2021 INR Coag (PPP) [Relative time] 1.1 {INR} Normal <1.4 [facility] Comment on above: Order Comment: Speci men Type: BLOOD SPECIMENOrdering Facility: [facility] Address: [address] [place] [address] Result Comment: Yris min K Antagonist (VKA) Therapeutic Range: INR 2 to 3 (Target INR of 2.5)Note: For patients treated with VKA drugs, such as warfarin, the [employer] 2012 Guideline recommends [...] al. Chest 2012, 141:7S-47SNishmariangel RA, et al. [facility] 2017, 70: 252-289 Performed By: #### 3 4528-0, 98066-6 ####[facility] LABORATORYCLIA [id number] [place] [address] [place] PT Coag (PPP) [Time] 11.4 s Normal <13.1 [facility] Comment on above: Order Comment: Shira feldman Type: BLOOD SPECIMENOrdering Facility: [facility] Address: [address] [place], [place] [address] Performed By: #### 3 4528-0, 43855-5 ####[facility] LABORATORYCLIA [id number] [place] [address] [place] Phosphate SerPl-mCncon 06-15 Phosphate [Mass/Vol] 2.6 mg/dL Low 2.7-4.8 [facility] Comment on above: Order Comment: Shira feldman Type: BLOOD SPECIMEN Performed By: #### 2 4321-2, 2777-1, 35745-6 ####[facility] LABORATORYCLIA [id number] [address] [place] Sodium ?Tm Ur-sCncon 022 Sodium Unsp time (U) [Moles/Vol] 34 mmol/L Normal 14-216 [facility] Comment on above: Order Comment: Speci men Type: URINE SPECIMENOrdering Facility: [facility] Address: [address] [place] [address] Performed By: #### U TPR, 60351-0, 05470-6, 87726-2 ####[facility] LABORATORYCLIA [id number] [address] [place] Sodium SerPl-sCncon 06-15-19 22 Sodium [Moles/Vol] 159 mmol/L High 136-144 [facility] Comment on above: Order Comment: Speci men Type: BLOOD SPECIMENOrdering Facility: [facility] Address: [address] [place] [address] Performed By: #### P JULIANNE, 2951-2 ####[facility]ORATORYCLIA [id number] [address] THERAPY NTon 06-15-2021 THERAPY NT Normal [facility] Urinalysis complete panel (U )on 06-15-2021 Bacteria LM.HPF (Urine sed) [#/Area] None Seen Normal None Seen [facility] Comment on above: Order Comment: Speci men Type: URINE SPECIMENOrdering Facility: [facility] Address: [address] [place] [address] Performed By: #### 2 4356-8 ####[facility] LABORATORYCLIA [id number] [address] [place] Bilirubin Ql (U) Negative Normal Negative [facility] Comment on above: Order Comment: Speci men Type: URINE SPECIMENOrdering Facility: [facility] Address: [address] [place] [address] Performed By: #### 2 4356-8 ####[facility] LABORATORYCLIA [id number] [address] [place] Clarity (Unsp spec) Cloudy Abnormal Clear [facility] Comment on above: Order Comment: Speci men Type: URINE SPECIMENOrdering Facility: [facility] Address: [address] [place] [address] Performed By: #### 2 4356-8 ####[facility] LABORATORYCLIA [id number] [address] Color (U) Yellow Normal Yellow [facility] Comment on above: Order Comment: Speci men Type: URINE SPECIMENOrdering Facility: [facility] Address: [address] [place] [address] Performed By: #### 2 4356-8 ####[facility] LABORATORYCLIA [id number] [address] Epithelial cells LM.HPF (Urine sed) [#/Area] 7.1 /[HPF] Normal [facility] Comment on above: Order Comment: Speci men Type: URINE SPECIMENOrdering Facility: [facility] Address: [address] [place] [address] Performed By: #### 2 4356-8 ####[facility] LABORATORYCLIA [id number] [address] Glucose Test strip (U) [Mass/Vol] Negative Normal Negative [facility] Comment on above: Order Comment: Speci men Type: URINE SPECIMENOrdering Facility: [facility] Address: [address] [place] [address] Performed By: #### 2 4356-8 ####[facility] LABORATORYCLIA [id number] [address] Granular casts (Urine sed) [#/Area] /[LPF] Abnormal 0 /LPF [facility] Comment on above: Order Comment: Speci men Type: URINE SPECIMENOrdering Facility: [facility] Address: [address] [place] [address] Performed By: #### 2 4356-8 ####[facility] LABORATORYCLIA [id number] [address] Hemoglobin Ql (U) Moderate Abnormal Negative [facility] Comment on above: Order Comment: Speci men Type: URINE SPECIMENOrdering Facility: [facility] Address: [address] [place] [address] Performed By: #### 2 4356-8 ####[facility] LABORATORYCLIA [id number] [address] OF [facility] Hyaline casts (Urine sed) [#/Area] /[LPF] Abnormal 0 /LPF [facility] Comment on above: Order Comment: Speci men Type: URINE SPECIMENOrdering Facility: [facility] Address: [address] [place] [address] Performed By: #### 2 4356-8 ####[facility] LABORATORYCLIA [id number] [address] Ketones Ql (U) Negative Normal Negative [facility] Comment on above: Order Comment: Speci men Type: URINE SPECIMENOrdering Facility: [facility] Address: [address] [place] [address] Performed By: #### 2 4356-8 ####[facility] LABORATORYCLIA [id number] [address] Leukocyte esterase Test strip Ql (U) Negative Normal Negative [facility] Comment on above: Order Comment: Speci men Type: URINE SPECIMENOrdering Facility: [facility] Address: [address] [place] [address] Performed By: #### 2 4356-8 ####[facility]ORATORYCLIA [id number] [address] Nitrite Ql (U) Negative Normal Negative [facility] Comment on above: Order Comment: Speci men Type: URINE SPECIMENOrdering Facility: [facility] Address: [address] [place] [address] Performed By: #### 2 4356-8 ####[facility] LABORATORYCLIA [id number] [address] [place] pH (U) 6.0 [pH] Normal 5.0-8.0 [facility] Comment on above: Order Comment: Speci men Type: URINE SPECIMENOrdering Facility: [facility] Address: [address] [place] [address] Performed By: #### 2 4356-8 ####[facility] LABORATORYCLIA [id number] [address] Protein (U) [Mass/Vol] 100 mg/dL Abnormal Negative [facility] Comment on above: Order Comment: Speci men Type: URINE SPECIMENOrdering Facility: [facility] Address: [address] [place] [address] Performed By: #### 2 4356-8 ####[facility] LABORATORYCLIA [id number] [address] [place] RBC LM.HPF (Urine sed) [#/Area] 0-3 /HPF Normal 0-3 /HPF [facility] Comment on above: Order Comment: Speci men Type: URINE SPECIMENOrdering Facility: [facility] Address: [address] [place] [address] Performed By: #### 2 4356-8 ####[facility] LABORATORYCLIA [id number] [address] Specific gravity (U) [Rel density] 1.024 Normal 1.005-1.030 [facility] Comment on above: Order Comment: Speci men Type: URINE SPECIMENOrdering Facility: [facility] Address: [address] [place] [address] Performed By: #### 2 4356-8 ####[facility] LABORATORYCLIA [id number] [address] Urobilinogen Ql (U) 0.2 EU/dL Normal 0.2-1.0 EU/dL [facility] Comment on above: Order Comment: Speci men Type: URINE SPECIMENOrdering Facility: [facility] Address: [address] [place] [address] Performed By: #### 2 4356-8 ####[facility] LABORATORYCLIA [id number] [place] [address] [place] WBC LM.HPF (Urine sed) [#/Area] 0-5 /HPF Normal 0-5 /HPF [facility] Comment on above: Order Comment: Speci men Type: URINE SPECIMENOrdering Facility: [facility] Address: [address] [place] [address] Performed By: #### 2 4356-8 ####[facility] LABORATORYCLIA [id number] [address] [place] XR CHEST 1V FRONTALon 2021 XR CHEST 1V FRONTAL Normal [facility] XR CHEST 1V FRONTAL PORTon 0 06-15-2021 XR CHEST 1V FRONTAL PORT Normal [facility] XR CHEST 1V FRONTAL PORT Normal [facility] aPTT PPPon 06-15-2021 aPTT Coag (PPP) [Time] 30.9 s Normal 23.0-32.4 [facility] Comment on above: Order Comment: Speci men Type: BLOOD SPECIMENOrdering Facility: [facility] Address: [address] [place] [address] Performed By: #### 3 4528-0, 17752-5 ####[facility] LABORATORYCLIA [id number] [place] [address] [place] Basic metabolic 2000 panelon 06-14-2021 Anion gap [Moles/Vol] 8 mmol/L Low 9-18 [facility] Comment on above: Order Comment: Speci men Type: BLOOD SPECIMEN Performed By: #### 2 4321-2, 2776-1, ####[facility] LABORATORYCLIA [id number] [place] [address] [place] Calcium [Mass/Vol] 8.9 mg/dL Normal 8.5-10.2 [facility] Comment on above: Order Comment: Speci men Type: BLOOD SPECIMEN Performed By: #### 2 4321-2, 2777-1, ####[facility] LABORATORYCLIA [id number] [place], [place] [id number] [place] [address] [place] Chloride [Moles/Vol] 121 mmol/L High 97-105 [facility] Comment on above: Order Comment: Speci men Type: BLOOD SPECIMEN Performed By: #### 2 4321-2, 2776-05, ####[facility] LABORATORYCLIA [id number] [place] [address] [place] CO2 [Moles/Vol] 30 mmol/L Normal 22-30 [facility] Comment on above: Order Comment: Speci men Type: BLOOD SPECIMEN Performed By: #### 2 4321-2, 2776-05, ####[facility]ITALCL[facility] [id number] [address] STATES OF [facility] Creatinine [Mass/Vol] 0.78 mg/dL Normal 0.73-1.22 [facility] Comment on above: Order Comment: Speci men Type: BLOOD SPECIMEN Performed By: #### 2 4321-2, 2776-05, ####[facility] LABORATORYCLIA [id number] [place] [address] [place] GFR/1.73 sq M.predicted MDRD (S/P/Bld) [Vol rate/Area] mL/min/{1.73_m2} Normal [facility] Comment on above: Order [...] GFR. Performed By: #### 2 4321-2, 2777, ####[facility] LABORATORYCLIA [id number] [place] [address] [place] Glucose [Mass/Vol] 132 mg/dL High 74-99 [facility] Comment on above: Order Comment: Speci men Type: BLOOD SPECIMEN Result Comment: The [place] [employer] (ADA) provides guidance for cutoff [...] Standards of Medical Care in Diabetes 2016, [employer] [employer]. Diabetes Care. 2016.39(Suppl 1). Performed By: #### 2 4321-2, 2776-05, ####[facility] LABORATORYCLIA [id number] [address] [place] Potassium [Moles/Vol] 3.7 mmol/L Normal 3.7-5.1 [facility] Comment on above: Order Comment: Speci men Type: BLOOD SPECIMEN Performed By: #### 2 4321-2, 2776-05, ####[facility] LABORATORYCLIA [id number] [address] [place] Sodium [Moles/Vol] 159 mmol/L High 136-144 [facility] Comment on above: Order Comment: Speci men Type: BLOOD SPECIMEN Performed By: #### 2 4321-2, 2776-05, ####[facility] LABORATORYCLIA [id number] [place] [address] [place] Urea nitrogen [Mass/Vol] 35 mg/dL High 9-24 [facility] Comment on above: Order Comment: Speci men Type: BLOOD SPECIMEN Performed By: #### 2 4321-2, 2776-05, ####[facility] LABORATORYCLIA [id number] [address] CASE MANAGEMon 06-14-2021 CASE MANAGEM Normal [facility] CBC panel Auto (Bld)on 06-14 Erythrocyte distribution width (RBC) [Ratio] 16.2 % High 11.5-15.0 [facility] Comment on above: Order Comment: Speci men Type: BLOOD SPECIMEN Performed By: #### 5 8410-2 ####[facility] LABORATORYCLIA [id number] [address] Hematocrit (Bld) [Volume fraction] 35.2 % Low 39.0-51.0 [facility] Comment on above: Order Comment: Speci men Type: BLOOD SPECIMEN Performed By: #### 5 8410-2 ####[facility] LABORATORYCLIA [id number] [address] Hemoglobin (Bld) [Mass/Vol] 10.1 g/dL Low 13.0-17.0 [facility] Comment on above: Order Comment: Speci men Type: BLOOD SPECIMEN Performed By: #### 5 8410-2 ####[facility] LABORATORYCLIA [id number] [address] MCH (RBC) [Entitic mass] 27.2 pg Normal 26.0-34.0 [facility] Comment on above: Order Comment: Speci men Type: BLOOD SPECIMEN Performed By: #### 5 8410-2 ####[facility] LABORATORYCLIA [id number] [address] MCHC (RBC) [Mass/Vol] 28.7 g/dL Low 30.5-36.0 [facility] Comment on above: Order Comment: Speci men Type: BLOOD SPECIMEN Performed By: #### 5 8410-2 ####[facility] LABORATORYCLIA [id number] [address] MCV (RBC) [Entitic vol] 94.6 fL Normal 80.0-100.0 [facility] Comment on above: Order Comment: Speci men Type: BLOOD SPECIMEN Performed By: #### 5 8410-2 ####[facility] LABORATORYCLIA [id number] [address] Nucleated RBC (Bld) [#/Vol] 10*3/uL Normal <0.01 [facility] Comment on above: Order Comment: Speci men Type: BLOOD SPECIMEN Performed By: #### 5 8410-2 ####[facility] LABORATORYCLIA [id number] [address] Platelet mean volume (Bld) [Entitic vol] 11.0 fL Normal 9.0-12.7 [facility] Comment on above: Order Comment: Speci men Type: BLOOD SPECIMEN Performed By: #### 5 8410-2 ####[facility] LABORATORYCLIA [id number] [address] Platelets (Bld) [#/Vol] 287 10*3/uL Normal 150-400 [facility] Comment on above: Order Comment: Speci men Type: BLOOD SPECIMEN Performed By: #### 5 8410-2 ####[facility] LABORATORYCLIA [id number] [address] RBC (Bld) [#/Vol] 3.72 10*6/uL Low 4.20-6.00 [facility] Comment on above: Order Comment: Speci men Type: BLOOD SPECIMEN Performed By: #### 5 8410-2 ####[facility] LABORATORYCLIA [id number] [address] WBC (Bld) [#/Vol] 12.23 10*3/uL High 3.70-11.00 [facility] Comment on above: Order Comment: Speci men Type: BLOOD SPECIMEN Performed By: #### 5 8410-2 ####[facility] LABORATORYCLIA [id number] [address] Comprehensive metabolic 2000 panelon 06-14-2021 Albumin [Mass/Vol] 3.1 g/dL Low 3.9-4.9 [facility] Comment on above: Order Comment: Speci men Type: BLOOD SPECIMEN Performed By: #### 2 4323-8, HSTNT, 2776-05, ####[facility]ORATORYCLIA [id number] [place], [place] [address] [place] [address] ALP [Catalytic activity/Vol] 72 U/L Normal 38-113 [facility] Comment on above: Order Comment: Speci men Type: BLOOD SPECIMEN Performed By: #### 2 4323-8, HSTNT, 2776-05, ####[facility] LABORATORYCLIA [id number] [address] ALT With P-5'-P [Catalytic activity/Vol] 57 U/L High 10-54 [facility] Comment on above: Order Comment: Speci men Type: BLOOD SPECIMEN Performed By: #### 2 4323-8, HSTNT, 2776-05, ####[facility]ATORYCLIA [id number] [address] Anion gap [Moles/Vol] 9 mmol/L Normal 9-18 [facility] Comment on above: Order Comment: Speci men Type: BLOOD SPECIMEN Performed By: #### 2 4323-8, HSTNT, 2776-05, ####[facility]ORATORYCLIA [id number] [place], [place] [address] [place] [address] AST With P-5'-P [Catalytic activity/Vol] 33 U/L Normal 14-40 [facility] Comment on above: Order Comment: Speci men Type: BLOOD SPECIMEN Performed By: #### 2 4323-8, HSTNT, 2776-05, ####[facility]ATORYCLIA [id number] [address] Bilirubin [Mass/Vol] 0.5 mg/dL Normal 0.2-1.3 [facility] Comment on above: Order Comment: Speci men Type: BLOOD SPECIMEN Performed By: #### 2 4323-8, HSTNT, 2776-05, ####[facility] LABORATORYCLIA [id number] [place] [address] [place] Calcium [Mass/Vol] 8.8 mg/dL Normal 8.5-10.2 [facility] Comment on above: Order Comment: Speci men Type: BLOOD SPECIMEN Performed By: #### 2 4323-8, HSTNT, 2776-05, ####[facility] LABORATORYCLIA [id number] [address] [place] Chloride [Moles/Vol] 124 mmol/L High 97-105 [facility] Comment on above: Order Comment: Speci men Type: BLOOD SPECIMEN Performed By: #### 2 4323-8, HSTNT, 2776-05, ####[facility] LABORATORYCLIA [id number] [address] [place] CO2 [Moles/Vol] 29 mmol/L Normal 22-30 [facility] Comment on above: Order Comment: Speci men Type: BLOOD SPECIMEN Performed By: #### 2 4323-8, HSTNT, 2776-05, ####[facility] LABORATORYCLIA [id number] [address] [place] Creatinine [Mass/Vol] 0.73 mg/dL Normal 0.73-1.22 [facility] Comment on above: Order Comment: Speci men Type: BLOOD SPECIMEN Performed By: #### 2 4323-8, HSTNT, 2776-05, ####[facility] LABORATORYCLIA [id number] [place] [address] [place] GFR/1.73 sq M.predicted MDRD (S/P/Bld) [Vol rate/Area] mL/min/{1.73_m2} Normal [facility] Comment on above: Order [...] GFR. Performed By: #### 2 4323-8, HSTNT, ####[facility] LABORATORYCLIA [id number] [place] [address] [place] Glucose [Mass/Vol] 137 mg/dL High 74-99 [facility] Comment on above: Order Comment: Speci men Type: BLOOD SPECIMEN Result Comment: The [place] Diabetes [employer] (ADA) provides guidance for cutoff [...] Standards of Medical Care in Diabetes 2016, [place] [employer]. Diabetes Care. 2016.39(Suppl 1). Performed By: #### 2 4323-8, HSTNT, ####[facility] LABORATORYCLIA [id number] [place] [address] [place] Potassium [Moles/Vol] 3.6 mmol/L Low 3.7-5.1 [facility] Comment on above: Order Comment: Speci men Type: BLOOD SPECIMEN Performed By: #### 2 4323-8, HSTNT, ####[facility] LABORATORYCLIA [id number] [place] [address] [place] Protein [Mass/Vol] 5.9 g/dL Low 6.3-8.0 [facility] Comment on above: Order Comment: Speci men Type: BLOOD SPECIMEN Performed By: #### 2 4323-8, HSTNT, 2776-05, ####[facility] LABORATORYCLIA [id number] [place], [place] [address] [place] [address] Sodium [Moles/Vol] 162 mmol/L High 136-144 [facility] Comment on above: Order Comment: Speci men Type: BLOOD SPECIMEN Performed By: #### 2 4323-8, HSTNT, 2776-05, ####[facility] LABORATORYCLIA [id number] [address] Urea nitrogen [Mass/Vol] 33 mg/dL High 9-24 [facility] Comment on above: Order Comment: Speci men Type: BLOOD SPECIMEN Performed By: #### 2 4323-8, HSTNT, 2776-05, ####[facility] LABORATORYCLIA [id number] [address] HIGH SENSITIVITY TROPONIN To n 06-14-2021 HIGH SENSITIVITY TAMIKO 22 ng/L High <12 [facility] Comment on above: Order Comment: [...] day MACE. Performed By: #### H STNT ####[facility] LABORATORYCLIA [id number] [address] HIGH SENSITIVITY TAMIKO 22 ng/L High <12 [facility] Comment on above: Order Comment: [...] Performed By: #### 2 4323-8, HSTNT, 2776-05, ####[facility]ORYCLIA [id number] [address] Magnesium SerPl-mCncon 06-14 Magnesium [Mass/Vol] 2.9 mg/dL High 1.7-2.3 [facility] Comment on above: Order Comment: Speci men Type: BLOOD SPECIMEN Performed By: #### 2 4323-8, HSTNT, 2776-05, ####[facility] LABORATORYCLIA [id number] [address] Magnesium [Mass/Vol] 3.0 mg/dL High 1.7-2.3 [facility] Comment on above: Order Comment: Speci men Type: BLOOD SPECIMEN Performed By: #### 2 4321-2, 2776-05, ####[facility]ORATORYCLIA [id number] [address] NURSING PROGon 06-14-2021 NURSING PROG Normal [facility] NUTRITIONon 06-14-2021 NUTRITION Normal [facility] Phosphate SerPl-mCncon 06-14 Phosphate [Mass/Vol] 2.4 mg/dL Low 2.7-4.8 [facility] Comment on above: Order Comment: Speci men Type: BLOOD SPECIMEN Performed By: #### 2 4323-8, HSTNT, 2776-05, ####[facility]ORATORYCLIA [id number] [address] Phosphate [Mass/Vol] 3.2 mg/dL Normal 2.7-4.8 [facility] Comment on above: Order Comment: Speci men Type: BLOOD SPECIMEN Performed By: #### 2 4321-2, 2776-05, ####[facility]ORYCLIA [id number] [place] [address] [place] THERAPY NTon 06-14-2021 THERAPY NT Normal [facility] THERAPY NT Normal [facility] THERAPY NT Normal [facility] US DVT LOWER BILon US DVT LOWER RAINER Normal [facility] ALLIED HEALTHon 06-13-2021 ALLIED HEALTH Normal [facility] Basic metabolic 2000 panelon 06-13-2021 Anion gap [Moles/Vol] 7 mmol/L Low 9-18 [facility] Comment on above: Order Comment: Speci men Type: BLOOD SPECIMEN Performed By: #### 2 4321-2, , 2776-05 ####[facility] LABORATORYCLIA [id number] [place] [address] [place] Calcium [Mass/Vol] 8.8 mg/dL Normal 8.5-10.2 [facility] Comment on above: Order Comment: Speci men Type: BLOOD SPECIMEN Performed By: #### 2 4321-2, , 2776-05 ####[facility]ORATORYCLIA [id number] [place] [address] [place] Chloride [Moles/Vol] 120 mmol/L High 97-105 [facility] Comment on above: Order Comment: Speci men Type: BLOOD SPECIMEN Performed By: #### 2 4321-2, , 2776-05 ####[facility]ORY[facility] [id number] [place] [address] [place] CO2 [Moles/Vol] 28 mmol/L Normal 22-30 [facility] Comment on above: Order Comment: Speci men Type: BLOOD SPECIMEN Performed By: #### 2 4321-2, , 2776-05 ####[facility]ATORYCLIA [id number] [place] [address] [place] Creatinine [Mass/Vol] 0.78 mg/dL Normal 0.73-1.22 [facility] Comment on above: Order Comment: Speci men Type: BLOOD SPECIMEN Performed By: #### 2 4321-2, 74569-6, 2776-05 ####[facility]ORATORYCLIA [id number] [place] [address] [place] GFR/1.73 sq M.predicted MDRD (S/P/Bld) [Vol rate/Area] mL/min/{1.73_m2} Normal [facility] Comment on above: Order [...] 4321-2, , 2776-05 ####[facility] H[facility]ITALIA [id number] [place] [address] [place] Glucose [Mass/Vol] 126 mg/dL High 74-99 [facility] Comment on above: Order Comment: Shira feldman Type: BLOOD SPECIMEN Result Comment: The [place] Diabetes [employer] (ADA) provides guidance for cutoff [...] Standards of Medical Care in Diabetes 2016, [place] [employer]. Diabetes Care. 2016.39(Suppl 1). Performed By: #### 2 4321-2, 03602-5, 2776- ####[facility]ATORYCLIA [id number] [place] [address] [place] Potassium [Moles/Vol] 3.6 mmol/L Low 3.7-5.1 [facility] Comment on above: Order Comment: Speci men Type: BLOOD SPECIMEN Performed By: #### 2 4321-2, , 2776-05 ####[facility]ORYCLIA [id number] [place] [address] [place] Sodium [Moles/Vol] 155 mmol/L High 136-144 [facility] Comment on above: Order Comment: Speci men Type: BLOOD SPECIMEN Performed By: #### 2 4321-2, , 2776-05 ####[facility]ORYCLIA [id number] [place] [address] [place] Urea nitrogen [Mass/Vol] 36 mg/dL High 9-24 [facility] Comment on above: Order Comment: Speci men Type: BLOOD SPECIMEN Performed By: #### 2 4321-2, , 2776-05 ####[facility]ORYCLIA [id number] [place], [place] [address] [place] [address] [place] Anion gap [Moles/Vol] 6 mmol/L Low 9-18 [facility] Comment on above: Order Comment: Speci men Type: BLOOD SPECIMEN Performed By: #### 2 4321-2, 2776-05, ####[facility]ORYCLIA [id number] [place] [address] [place] Calcium [Mass/Vol] 6.5 mg/dL Low 8.5-10.2 [facility] Comment on above: Order Comment: Speci men Type: BLOOD SPECIMEN Performed By: #### 2 4321-2, 2776-05, ####[facility]ATORYCLIA [id number] [place] [address] [place] Chloride [Moles/Vol] 124 mmol/L High 97-105 [facility] Comment on above: Order Comment: Speci men Type: BLOOD SPECIMEN Performed By: #### 2 4321-2, 2776-05, ####[facility]ORATORYCLIA [id number] [place], [place] [address] [place] [address] [place] CO2 [Moles/Vol] 24 mmol/L Normal 22-30 [facility] Comment on above: Order Comment: Speci men Type: BLOOD SPECIMEN Performed By: #### 2 4321-2, 2776-05, ####[facility]ORATORYCLIA [id number] [address] [place] Creatinine [Mass/Vol] 0.61 mg/dL Low 0.73-1.22 [facility] Comment on above: Order Comment: Speci men Type: BLOOD SPECIMEN Performed By: #### 2 4321-2, 2776-05, ####[facility]ORATORYCLIA [id number] [address] [place] GFR/1.73 sq M.predicted MDRD (S/P/Bld) [Vol rate/Area] mL/min/{1.73_m2} Normal [facility] Comment on above: Order [...] GFR. Performed By: #### 2 4321-2, 2776-05, ####[facility]ORATORYCLIA [id number] [place] [address] [place] Glucose [Mass/Vol] 100 mg/dL High 74-99 [facility] Comment on above: Order Comment: Speci men Type: BLOOD SPECIMEN Result Comment: The [place] Diabetes [employer] (ADA) provides guidance for cutoff [...] Standards of Medical Care in Diabetes 2016, [place] [employer]. Diabetes Care. 2016.39(Suppl 1). Performed By: #### 2 4321-2, 2776-05, ####[facility]ORATORYCLIA [id number] [address] STATES OF [facility] Potassium [Moles/Vol] 2.7 mmol/L Low 3.7-5.1 [facility] Comment on above: Order Comment: Speci men Type: BLOOD SPECIMEN Performed By: #### 2 4321-2, 2776-05, ####[facility]ORATORYCLIA [id number] [address] STATES OF [facility] Sodium [Moles/Vol] 154 mmol/L High 136-144 [facility] Comment on above: Order Comment: Speci men Type: BLOOD SPECIMEN Performed By: #### 2 4321-2, 2776-05, ####[facility]ORATORYCLIA [id number] [address] [place] Urea nitrogen [Mass/Vol] 29 mg/dL High 9-24 [facility] Comment on above: Order Comment: Speci men Type: BLOOD SPECIMEN Performed By: #### 2 4321-2, 2776-05, ####[facility]ORATORYCLIA [id number] [address] [place] CASE MANAGEMon 06-13-2021 CASE MANAGEM Normal [facility] CBC panel Auto (Bld)on 06-13 Erythrocyte distribution width (RBC) [Ratio] 15.9 % High 11.5-15.0 [facility] Comment on above: Order Comment: Speci men Type: BLOOD SPECIMEN Performed By: #### 5 8410-2 ####[facility]ORATORYCLIA [id number] [address] Hematocrit (Bld) [Volume fraction] 34.3 % Low 39.0-51.0 [facility] Comment on above: Order Comment: Speci men Type: BLOOD SPECIMEN Performed By: #### 5 8410-2 ####[facility]ORATORYCLIA [id number] [address] Hemoglobin (Bld) [Mass/Vol] 9.9 g/dL Low 13.0-17.0 [facility] Comment on above: Order Comment: Speci men Type: BLOOD SPECIMEN Performed By: #### 5 8410-2 ####[facility]ORATORYCLIA [id number] [address] MCH (RBC) [Entitic mass] 27.3 pg Normal 26.0-34.0 [facility] Comment on above: Order Comment: Speci men Type: BLOOD SPECIMEN Performed By: #### 5 8410-2 ####[facility]ORATORYCLIA [id number] [address] MCHC (RBC) [Mass/Vol] 28.9 g/dL Low 30.5-36.0 [facility] Comment on above: Order Comment: Speci men Type: BLOOD SPECIMEN Performed By: #### 5 8410-2 ####[facility]ORATORYCLIA [id number] [address] MCV (RBC) [Entitic vol] 94.5 fL Normal 80.0-100.0 [facility] Comment on above: Order Comment: Speci men Type: BLOOD SPECIMEN Performed By: #### 5 8410-2 ####[facility]ORATORYCLIA [id number] [address] Nucleated RBC (Bld) [#/Vol] 10*3/uL Normal <0.01 [facility] Comment on above: Order Comment: Speci men Type: BLOOD SPECIMEN Performed By: #### 5 8410-2 ####[facility]ORATORYCLIA [id number] [address] Platelet mean volume (Bld) [Entitic vol] 11.3 fL Normal 9.0-12.7 [facility] Comment on above: Order Comment: Speci men Type: BLOOD SPECIMEN Performed By: #### 5 8410-2 ####[facility]ORATORYCLIA [id number] [address] STATES OF [facility] Platelets (Bld) [#/Vol] 269 10*3/uL Normal 150-400 [facility] Comment on above: Order Comment: Speci men Type: BLOOD SPECIMEN Performed By: #### 5 8410-2 ####[facility]ORATORYCLIA [id number] [address] OF [facility] RBC (Bld) [#/Vol] 3.63 10*6/uL Low 4.20-6.00 [facility] Comment on above: Order Comment: Speci men Type: BLOOD SPECIMEN Performed By: #### 5 8410-2 ####[facility]ORATORYCLIA [id number] [address] OF [facility] WBC (Bld) [#/Vol] 12.77 10*3/uL High 3.70-11.00 [facility] Comment on above: Order Comment: Speci men Type: BLOOD SPECIMEN Performed By: #### 5 8410-2 ####[facility]ORATORYCLIA [id number] [address] Gas and Carbon monoxide pane l (BldV)on 06-13-2021 Base excess Calc (BldV) [Moles/Vol] 5.7 mmol/L High 0-2 [facility] Comment on above: Order Comment: Speci men Type: VENOUS BLOOD SPECIMEN Performed By: #### 2 4344-4 ####[facility]ORATORYCLIA [id number] [address] Body temperature 99.5 [degF] Normal [facility] Comment on above: Order Comment: Speci men Type: VENOUS BLOOD SPECIMEN Performed By: #### 2 4344-4 ####[facility]ORATORYCLIA [id number] [address] CALCIUM IONIZED, PH CORRECTED 1.24 mmol/L Normal 1.08-1.30 [facility] Comment on above: Order Comment: Speci men Type: VENOUS BLOOD SPECIMEN Performed By: #### 2 4344-4 ####[facility]ORATORYCLIA [id number] [address] Calcium.ionized (BldV) [Mass/Vol] 1.23 mmol/L Normal 1.08-1.30 [facility] Comment on above: Order Comment: Speci men Type: VENOUS BLOOD SPECIMEN Performed By: #### 2 4344-4 ####[facility]ORATORYCLIA [id number] [address] Carboxyhemoglobin (BldV) [Mass fraction] 1.2 % Normal 0.0-2.0 [facility] Comment on above: Order Comment: Speci men Type: VENOUS BLOOD SPECIMEN Result Comment: Carb oxyhemoglobin Reference Range for Smokers: 2.0-8.0% Performed By: #### 2 4344-4 ####[facility]ATORYCLIA [id number] [address] CO2 (BldV) [Partial pressure] 48 mm[Hg] Normal 42-55 [facility] Comment on above: Order Comment: Speci men Type: VENOUS BLOOD SPECIMEN Performed By: #### 2 4344-4 ####[facility]ATORYCLIA [id number] [address] CO2 [Moles/Vol] 28.2 mmol/L Normal 25-29 [facility] Comment on above: Order Comment: Speci men Type: VENOUS BLOOD SPECIMEN Performed By: #### 2 4344-4 ####[facility]ATORYCLIA [id number] [address] CO2 adjusted to patient's actual temperature (BldV) [Partial pressure] 49 mmHg Normal 42-55 [facility] Comment on above: Order Comment: Speci men Type: VENOUS BLOOD SPECIMEN Performed By: #### 2 4344-4 ####[facility]ORYCLIA [id number] [address] Glucose [Mass/Vol] 131 mg/dL High 60-105 [facility] Comment on above: Order Comment: Speci men Type: VENOUS BLOOD SPECIMEN Performed By: #### 2 4344-4 ####[facility]ATORYCLIA [id number] [address] HCO3 (Bld) [Moles/Vol] 30.6 mmol/L High 24-28 [facility] Comment on above: Order Comment: Speci men Type: VENOUS BLOOD SPECIMEN Performed By: #### 2 4344-4 ####[facility]ORATORYCLIA [id number] [address] [place] Hematocrit (Bld) [Volume fraction] 32.8 % Low 39.0-51.0 [facility] Comment on above: Order Comment: Speci men Type: VENOUS BLOOD SPECIMEN Performed By: #### 2 4344-4 ####[facility]ORYCLIA [id number] [address] [place] Hemoglobin (Bld) [Mass/Vol] 10.6 g/dL Low 13.0-17.0 [facility] Comment on above: Order Comment: Speci men Type: VENOUS BLOOD SPECIMEN Performed By: #### 2 4344-4 ####[facility]ATORYCLIA [id number] [address] [place] LITERS 6 Liters/min Normal [facility] Comment on above: Order Comment: Speci men Type: VENOUS BLOOD SPECIMEN Performed By: #### 2 4344-4 ####[facility]ORYCLIA [id number] [place] [address] [facility] [place] Methemoglobin (Bld) [Mass fraction] 1.0 % Normal 0.0-1.5 [facility] Comment on above: Order Comment: Speci men Type: VENOUS BLOOD SPECIMEN Performed By: #### 2 4344-4 ####[facility]ATORYCLIA [id number] [place] [address] [facility] O2 THERAPY NC = Nasal Cannula Normal [facility] Comment on above: Order Comment: Speci men Type: VENOUS BLOOD SPECIMEN Performed By: #### 2 4344-4 ####[facility]ATORYCLIA [id number] [place], [place] [address] [place] [address] [place] Oxygen (BldV) [Partial pressure] 42 mm[Hg] Normal 35-45 [facility] Comment on above: Order Comment: Speci men Type: VENOUS BLOOD SPECIMEN Performed By: #### 2 4344-4 ####[facility]ATORYCLIA [id number] [place], [place] [address] [place] [address] Oxygen adjusted to patient's actual temperature (BldV) [Partial pressure] 43.8 mmHg Normal 35-45 [facility] Comment on above: Order Comment: Speci men Type: VENOUS BLOOD SPECIMEN Performed By: #### 2 4344-4 ####[facility]ATORYCLIA [id number] [place], [place] [address] [place] [address] [place] Oxygen saturation in Blood 76.7 % Normal 60-85 [facility] Comment on above: Order Comment: Speci men Type: VENOUS BLOOD SPECIMEN Performed By: #### 2 4344-4 ####[facility]ORYCLIA [id number] [place], [place] [address] [place] [address] [place] Oxyhemoglobin (BldV) [Mass fraction] 75 % Normal 60-85 [facility] Comment on above: Order Comment: Speci men Type: VENOUS BLOOD SPECIMEN Performed By: #### 2 4344-4 ####[facility]ATORYCLIA [id number] [place], [place] [address] [place] [address] [place] pH (BldV) 7.42 [pH] Normal 7.32-7.42 [facility] Comment on above: Order Comment: Speci men Type: VENOUS BLOOD SPECIMEN Performed By: #### 2 4344-4 ####[facility]ORYCLIA [id number] [address] pH adjusted to patient's actual temperature (BldV) 7.41 Normal 7.32-7.42 [facility] Comment on above: Order Comment: Speci men Type: VENOUS BLOOD SPECIMEN Performed By: #### 2 4344-4 ####[facility]ORYCLIA [id number] [address] Potassium [Moles/Vol] 3.5 mmol/L Normal 3.5-5.0 [facility] Comment on above: Order Comment: Speci men Type: VENOUS BLOOD SPECIMEN Performed By: #### 2 4344-4 ####[facility]ORYCLIA [id number] [address] Sodium [Moles/Vol] 157 mmol/L High 136-144 [facility] Comment on above: Order Comment: Speci men Type: VENOUS BLOOD SPECIMEN Performed By: #### 2 4344-4 ####[facility]ORYCLIA [id number] [address] Magnesium SerPl-mCncon 06-13 Magnesium [Mass/Vol] 3.0 mg/dL High 1.7-2.3 [facility] Comment on above: Order Comment: Speci men Type: BLOOD SPECIMEN Performed By: #### 2 4321-2, , 2776-05 ####[facility]ATORYCLIA [id number] [address] Magnesium [Mass/Vol] 2.2 mg/dL Normal 1.7-2.3 [facility] Comment on above: Order Comment: Speci men Type: BLOOD SPECIMEN Performed By: #### 2 4321-2, 2776-, ####[facility]ATORYCLIA [id number] [place] [address] [place] Phosphate SerPl-mCncon 06-13 Phosphate [Mass/Vol] 2.2 mg/dL Low 2.7-4.8 [facility] Comment on above: Order Comment: Speci men Type: BLOOD SPECIMEN Performed By: #### 2 4321-2, , 2776-05 ####[facility]ORATORYCLIA [id number] [address] STATES OF [facility] Phosphate [Mass/Vol] 1.8 mg/dL Low 2.7-4.8 [facility] Comment on above: Order Comment: Speci men Type: BLOOD SPECIMEN Performed By: #### 2 4321-2, 2776-05, ####[facility]ORATORYCLIA [id number] [address] STATES OF [facility] XR CHEST 1V FRONTALon 2021 XR CHEST 1V FRONTAL Normal [facility] ALLIED HEALTHon 06-12-2021 ALLIED HEALTH Normal [facility] BRIEF OP NOTon 06-12-2021 BRIEF OP NOT Normal [facility] Bacteria Fld Culton 06-12-19 22 Bacteria identified Cx Nom (Body fld) CULTURE, BODY FLD: No growth 5 days GRAM STAIN: No organisms seen Moderate Polymorphonuclear leukocytes Normal [facility] Comment on above: Performed By: #### 6 11-4 ####[facility]ORATORYCLIA [id number] [address] [place] Basic metabolic 2000 panelon 06-12-2021 Anion gap [Moles/Vol] 6 mmol/L Low 9-18 [facility] Comment on above: Order Comment: Speci men Type: BLOOD SPECIMEN Performed By: #### 2 777-1, 89931-1, ####[facility]ORATORYCLIA [id number] [address] [place] Calcium [Mass/Vol] 8.7 mg/dL Normal 8.5-10.2 [facility] Comment on above: Order Comment: Speci men Type: BLOOD SPECIMEN Performed By: #### 2 777-1, 47039-4, ####[facility]ORATORYCLIA [id number] [address] Chloride [Moles/Vol] 118 mmol/L High 97-105 [facility] Comment on above: Order Comment: Speci men Type: BLOOD SPECIMEN Performed By: #### 2 777-1, 99628-8, ####[facility]ORATORYCLIA [id number] [address] CO2 [Moles/Vol] 28 mmol/L Normal 22-30 [facility] Comment on above: Order Comment: Speci men Type: BLOOD SPECIMEN Performed By: #### 2 777-1, , ####[facility]ORATORYCLIA [id number] [address] [facility] Creatinine [Mass/Vol] 0.77 mg/dL Normal 0.73-1.22 [facility] Comment on above: Order Comment: Speci men Type: BLOOD SPECIMEN Performed By: #### 2 777-1, , ####[facility]ORATORYCLIA [id number] [address] GFR/1.73 sq M.predicted MDRD (S/P/Bld) [Vol rate/Area] mL/min/{1.73_m2} Normal [facility] Comment on above: Order [...] actual GFR. Performed By: #### 2 777-1, 27554-1, ####[facility]ORATORYCLIA [id number] [place] [address] [place] Glucose [Mass/Vol] 116 mg/dL High 74-99 [facility] Comment on above: Order Comment: Speci men Type: BLOOD SPECIMEN Result Comment: The [place] [employer] (ADA) provides guidance for cutoff [...] Standards of Medical Care in Diabetes 2016, [place] [employer]. Diabetes Care. 2016.39(Suppl 1). Performed By: #### 2 777-1, , ####[facility]ORATORYCLIA [id number] [place] [address] [place] Potassium [Moles/Vol] 4.0 mmol/L Normal 3.7-5.1 [facility] Comment on above: Order Comment: Speci men Type: BLOOD SPECIMEN Performed By: #### 2 777-1, , ####[facility]ORATORYCLIA [id number] [place] [address] [place] Sodium [Moles/Vol] 152 mmol/L High 136-144 [facility] Comment on above: Order Comment: Speci men Type: BLOOD SPECIMEN Performed By: #### 2 777-1, , ####[facility]ORATORYCLIA [id number] [place] [address] [place] Urea nitrogen [Mass/Vol] 34 mg/dL High 9-24 [facility] Comment on above: Order Comment: Speci men Type: BLOOD SPECIMEN Performed By: #### 2 777-1, 18965-4, 76786-6 ####[facility]ORATORYCLIA [id number] [address] CBC panel Auto (Bld)on 06-12 Erythrocyte distribution width (RBC) [Ratio] 16.1 % High 11.5-15.0 [facility] Comment on above: Order Comment: Speci men Type: BLOOD SPECIMEN Performed By: #### 5 8410-2 ####[facility]ORATORYCLIA [id number] [address] Hematocrit (Bld) [Volume fraction] 32.8 % Low 39.0-51.0 [facility] Comment on above: Order Comment: Speci men Type: BLOOD SPECIMEN Performed By: #### 5 8410-2 ####[facility]ORATORYCLIA [id number] [address] Hemoglobin (Bld) [Mass/Vol] 9.9 g/dL Low 13.0-17.0 [facility] Comment on above: Order Comment: Speci men Type: BLOOD SPECIMEN Performed By: #### 5 8410-2 ####[facility]ORATORYCLIA [id number] [address] MCH (RBC) [Entitic mass] 28.4 pg Normal 26.0-34.0 [facility] Comment on above: Order Comment: Speci men Type: BLOOD SPECIMEN Performed By: #### 5 8410-2 ####[facility]ORATORYCLIA [id number] [address] MCHC (RBC) [Mass/Vol] 30.2 g/dL Low 30.5-36.0 [facility] Comment on above: Order Comment: Speci men Type: BLOOD SPECIMEN Performed By: #### 5 8410-2 ####[facility]ORATORYCLIA [id number] [address] MCV (RBC) [Entitic vol] 94.3 fL Normal 80.0-100.0 [facility] Comment on above: Order Comment: Speci men Type: BLOOD SPECIMEN Performed By: #### 5 8410-2 ####[facility]ATORYCLIA [id number] [address] Nucleated RBC (Bld) [#/Vol] 10*3/uL Normal <0.01 [facility] Comment on above: Order Comment: Speci men Type: BLOOD SPECIMEN Performed By: #### 5 8410-2 ####[facility]ORATORYCLIA [id number] [address] Platelet mean volume (Bld) [Entitic vol] 11.2 fL Normal 9.0-12.7 [facility] Comment on above: Order Comment: Speci men Type: BLOOD SPECIMEN Performed By: #### 5 8410-2 ####[facility]ORATORYCLIA [id number] [address] Platelets (Bld) [#/Vol] 218 10*3/uL Normal 150-400 [facility] Comment on above: Order Comment: Speci men Type: BLOOD SPECIMEN Performed By: #### 5 8410-2 ####[facility]ORATORYCLIA [id number] [address] RBC (Bld) [#/Vol] 3.48 10*6/uL Low 4.20-6.00 [facility] Comment on above: Order Comment: Speci men Type: BLOOD SPECIMEN Performed By: #### 5 8410-2 ####[facility]ORATORYCLIA [id number] [address] OF [facility] WBC (Bld) [#/Vol] 13.33 10*3/uL High 3.70-11.00 [facility] Comment on above: Order Comment: Speci men Type: BLOOD SPECIMEN Performed By: #### 5 8410-2 ####[facility]ORATORYCLIA [id number] [address] OF [facility] CONSULT PROGon 06-12-2021 CONSULT PROG Normal [facility] CT DRN PLACE PERIT/RETROP FL BIon 06-12-[address] PERIT/RETROP FL BI Normal [facility] HISTORY PHYSICALon 2 HISTORY PHYSICAL Normal [facility] Magnesium SerPl-mCncon 06-12 Magnesium [Mass/Vol] 2.7 mg/dL High 1.7-2.3 [facility] Comment on above: Order Comment: Speci men Type: BLOOD SPECIMEN Performed By: #### 2 777-1, 44596-8, 94197-4 ####[facility]ORATORYCLIA [id number] [place] [address] [place] PT panel Coag (PPP)on 2021 INR Coag (PPP) [Relative time] 1.1 {INR} Normal 0.9-1.3 [facility] Comment on above: Order Comment: Speci men Type: BLOOD SPECIMEN Result Comment: Yris min K Antagonist (VKA) Therapeutic Range: INR 2 to 3 (Target INR of 2.5)Note: For patients treated with VKA drugs, such as warfarin, the [employer] 2012 Guideline recommends [...] 70: 252-289 Performed By: #### 3 4528-0 ####[facility] LABORATORYCLIA [id number] [place] [address] [place] PT Coag (PPP) [Time] 11.9 s Normal 9.7-13.0 [facility] Comment on above: Order Comment: Speci men Type: BLOOD SPECIMEN Performed By: #### 3 4528-0 ####[facility]ORATORYCLIA [id number] [address] Phosphate SerPl-mCncon 06-12 Phosphate [Mass/Vol] 2.2 mg/dL Low 2.7-4.8 [facility] Comment on above: Order Comment: Speci men Type: BLOOD SPECIMEN Performed By: #### 2 777-1, 12033-1, 67335-1 ####[facility] LABORATORYCLIA [id number] [address] OF [facility] XR ABDOMEN 1V SUPINEon 06-12 XR ABDOMEN 1V SUPINE Normal [facility] ALLIED HEALTHon 06-11-2021 ALLIED HEALTH Normal [facility] Bacteria Bld Culton 06-11-19 22 Bacteria identified Cx Nom (Bld) CULTURE, BLOOD: No growth 5 days Normal [facility] Comment on above: Performed By: #### 6 00-7 ####[facility] LABORATORYCLIA [id number] [address] Bacteria identified Cx Nom (Bld) CULTURE, BLOOD: No growth 5 days Normal [facility] Comment on above: Performed By: #### 6 00-7 ####[facility] LABORATORYCLIA [id number] [address] Bacteria Ur Culton 2 Bacteria identified Cx Nom (U) CULTURE, URINE: No growth (<1,000 CFU/ml) [facility] Comment on above: Performed By: #### 6 30-4 ####[facility]ORATORYCLIA [id number] [address] Basic metabolic 2000 panelon 06-11-2021 Anion gap [Moles/Vol] 9 mmol/L Normal 9-18 [facility] Comment on above: Order Comment: Speci men Type: BLOOD SPECIMEN Performed By: #### 1 9123-9, 2777-1, 54819-1 ####[facility] LABORATORYCLIA [id number] [address] STATES OF [facility] Calcium [Mass/Vol] 8.5 mg/dL Normal 8.5-10.2 [facility] Comment on above: Order Comment: Speci men Type: BLOOD SPECIMEN Performed By: #### 1 9123-9, 2777-1, 75526-0 ####[facility] LABORATORYCLIA [id number] [address] OF [place] Chloride [Moles/Vol] 118 mmol/L High 97-105 [facility] Comment on above: Order Comment: Speci men Type: BLOOD SPECIMEN Performed By: #### 1 9123-9, 277-, 85506-2 ####[facility]ORATORYCLIA [id number] [address] CO2 [Moles/Vol] 27 mmol/L Normal 22-30 [facility] Comment on above: Order Comment: Speci men Type: BLOOD SPECIMEN Performed By: #### 1 9123-9, 2777-1, 49712-7 ####[facility]ORATORYCLIA [id number] [address] [facility] Creatinine [Mass/Vol] 0.75 mg/dL Normal 0.73-1.22 [facility] Comment on above: Order Comment: Speci men Type: BLOOD SPECIMEN Performed By: #### 1 9123-9, 2777-1, 66345-3 ####[facility]ORATORYCLIA [id number] [address] STATES OF [place] GFR/1.73 sq M.predicted MDRD (S/P/Bld) [Vol rate/Area] mL/min/{1.73_m2} Normal [facility] Comment on above: Order [...] GFR. Performed By: #### 1 9123-9, 7-, 03820-9 ####[facility]ORATORYCLIA [id number] [address] STATES [place] Glucose [Mass/Vol] 142 mg/dL High 74-99 [facility] Comment on above: Order Comment: Speci men Type: BLOOD SPECIMEN Result Comment: The [place] Diabetes Association (ADA) provides guidance for cutoff [...] Standards of Medical Care in Diabetes 2016, [place] [employer]. Diabetes Care. 2016.39(Suppl 1). Performed By: #### 1 9123-9, 2776-05, 95387-8 ####[facility]ORATORYCLIA [id number] [place] [address] [place] Potassium [Moles/Vol] 3.6 mmol/L Low 3.7-5.1 [facility] Comment on above: Order Comment: Speci men Type: BLOOD SPECIMEN Performed By: #### 1 9123-9, 27711-04, 29174-2 ####[facility]ORATORYCLIA [id number] [address] STATES [place] Sodium [Moles/Vol] 154 mmol/L High 136-144 [facility] Comment on above: Order Comment: Speci men Type: BLOOD SPECIMEN Performed By: #### 1 9123-9, 27711-04, 37230-8 ####[facility]ORATORYCLIA [id number] [address] Urea nitrogen [Mass/Vol] 31 mg/dL High 9-24 [facility] Comment on above: Order Comment: Speci men Type: BLOOD SPECIMEN Performed By: #### 1 9123-9, 2777-1, 48886-1 ####[facility] LABORATORYCLIA [id number] [address] C diff Tox gens Stl Ql MEGAN+p robeon 06-11-2021 C. difficile toxin genes MEGAN+probe Ql (Stl) Negative Normal Negative for C. difficile toxin by PCR [facility] Comment on above: Order Comment: Speci men Type: STOOL SPECIMEN Performed By: #### 5 4067-4 ####[facility]ORATORYCLIA [id number] [address] CBC W Auto Differential pane l (Bld)on 06-11-2021 Basophils (Bld) [#/Vol] 0.03 10*3/uL Normal <0.11 [facility] Comment on above: Order Comment: Speci men Type: BLOOD SPECIMEN Performed By: #### 5 7021-8 ####[facility]ORATORYCLIA [id number] [address] Basophils/100 WBC (Bld) 0.2 % Normal [facility] Comment on above: Order Comment: Speci men Type: BLOOD SPECIMEN Performed By: #### 5 7021-8 ####[facility]ORATORYCLIA [id number] [address] Differential cell count method Nom (Bld) Auto Normal [facility] Comment on above: Order Comment: Speci men Type: BLOOD SPECIMEN Performed By: #### 5 7021-8 ####[facility]ORATORYCLIA [id number] [address] [facility] Eosinophils (Bld) [#/Vol] 0.19 10*3/uL Normal <0.46 [facility] Comment on above: Order Comment: Speci men Type: BLOOD SPECIMEN Performed By: #### 5 7021-8 ####[facility]ORYCLIA [id number] [address] Eosinophils/100 WBC (Bld) 1.5 % Normal [facility] Comment on above: Order Comment: Speci men Type: BLOOD SPECIMEN Performed By: #### 5 7021-8 ####[facility]ORATORYCLIA [id number] [address] Erythrocyte distribution width (RBC) [Ratio] 16.3 % High 11.5-15.0 [facility] Comment on above: Order Comment: Speci men Type: BLOOD SPECIMEN Performed By: #### 5 7021-8 ####[facility]ORATORYCLIA [id number] [address] Hematocrit (Bld) [Volume fraction] 32.1 % Low 39.0-51.0 [facility] Comment on above: Order Comment: Speci men Type: BLOOD SPECIMEN Performed By: #### 5 7021-8 ####[facility]ORATORYCLIA [id number] [address] Hemoglobin (Bld) [Mass/Vol] 9.3 g/dL Low 13.0-17.0 [facility] Comment on above: Order Comment: Speci men Type: BLOOD SPECIMEN Performed By: #### 5 7021-8 ####[facility]ORATORYCLIA [id number] [address] IMMATURE GRAN % 0.6 % Normal [facility] Comment on above: Order Comment: Speci men Type: BLOOD SPECIMEN Performed By: #### 5 7021-8 ####[facility]ORATORYCLIA [id number] [address] IMMATURE GRAN ABS 0.08 k/uL Normal <0.10 [facility] Comment on above: Order Comment: Speci men Type: BLOOD SPECIMEN Performed By: #### 5 7021-8 ####[facility]ATORYCLIA [id number] [address] Lymphocytes (Bld) [#/Vol] 1.65 10*3/uL Normal 1.00-4.00 [facility] Comment on above: Order Comment: Speci men Type: BLOOD SPECIMEN Performed By: #### 5 7021-8 ####[facility]ORATORYCLIA [id number] [address] Lymphocytes/100 WBC (Bld) 12.8 % Normal [facility] Comment on above: Order Comment: Speci men Type: BLOOD SPECIMEN Performed By: #### 5 7021-8 ####[facility]ORATORYCLIA [id number] [address] MCH (RBC) [Entitic mass] 27.2 pg Normal 26.0-34.0 [facility] Comment on above: Order Comment: Speci men Type: BLOOD SPECIMEN Performed By: #### 5 7021-8 ####[facility]ORATORYCLIA [id number] [address] MCHC (RBC) [Mass/Vol] 29.0 g/dL Low 30.5-36.0 [facility] Comment on above: Order Comment: Speci men Type: BLOOD SPECIMEN Performed By: #### 5 7021-8 ####[facility]ORATORYCLIA [id number] [address] MCV (RBC) [Entitic vol] 93.9 fL Normal 80.0-100.0 [facility] Comment on above: Order Comment: Speci men Type: BLOOD SPECIMEN Performed By: #### 5 7021-8 ####[facility]ORATORYCLIA [id number] [address] Monocytes (Bld) [#/Vol] 0.68 10*3/uL Normal <0.87 [facility] Comment on above: Order Comment: Speci men Type: BLOOD SPECIMEN Performed By: #### 5 7021-8 ####[facility] LABORATORYCLIA [id number] [place] [address] Monocytes/100 WBC (Bld) 5.3 % Normal [facility] Comment on above: Order Comment: Speci men Type: BLOOD SPECIMEN Performed By: #### 5 7021-8 ####[facility] LABORATORYCLIA [id number] [address] Neutrophils (Bld) [#/Vol] 10.22 10*3/uL High 1.45-7.50 [facility] Comment on above: Order Comment: Speci men Type: BLOOD SPECIMEN Performed By: #### 5 7021-8 ####[facility]ORATORYCLIA [id number] [address] Neutrophils/100 WBC (Bld) 79.6 % Normal [facility] Comment on above: Order Comment: Speci men Type: BLOOD SPECIMEN Performed By: #### 5 7021-8 ####[facility]ORATORYCLIA [id number] [address] Nucleated RBC (Bld) [#/Vol] 10*3/uL Normal <0.01 [facility] Comment on above: Order Comment: Speci men Type: BLOOD SPECIMEN Performed By: #### 5 7021-8 ####[facility]ORATORYCLIA [id number] [address] Nucleated RBC/100 WBC (Bld) [Ratio] 0.0 /100 WBC Normal 0.0 [facility] Comment on above: Order Comment: Speci men Type: BLOOD SPECIMEN Performed By: #### 5 7021-8 ####[facility] LABORATORYCLIA [id number] [address] Platelet mean volume (Bld) [Entitic vol] 11.1 fL Normal 9.0-12.7 [facility] Comment on above: Order Comment: Speci men Type: BLOOD SPECIMEN Performed By: #### 5 7021-8 ####[facility]ORATORYCLIA [id number] [address] Platelets (Bld) [#/Vol] 188 10*3/uL Normal 150-400 [facility] Comment on above: Order Comment: Speci men Type: BLOOD SPECIMEN Performed By: #### 5 7021-8 ####[facility]ORATORYCLIA [id number] [address] RBC (Bld) [#/Vol] 3.42 10*6/uL Low 4.20-6.00 [facility] Comment on above: Order Comment: Speci men Type: BLOOD SPECIMEN Performed By: #### 5 7021-8 ####[facility]ORATORYCLIA [id number] [address] WBC (Bld) [#/Vol] 12.85 10*3/uL High 3.70-11.00 [facility] Comment on above: Order Comment: Speci men Type: BLOOD SPECIMEN Performed By: #### 5 7021-8 ####[facility]ORATORYCLIA [id number] [address] CBC panel Auto (Bld)on 06-11 Erythrocyte distribution width (RBC) [Ratio] 16.2 % High 11.5-15.0 [facility] Comment on above: Order Comment: Speci men Type: BLOOD SPECIMEN Performed By: #### 5 8410-2 ####[facility]ORATORYCLIA [id number] [address] Hematocrit (Bld) [Volume fraction] 34.5 % Low 39.0-51.0 [facility] Comment on above: Order Comment: Speci men Type: BLOOD SPECIMEN Performed By: #### 5 8410-2 ####[facility]ORATORYCLIA [id number] [address] Hemoglobin (Bld) [Mass/Vol] 10.3 g/dL Low 13.0-17.0 [facility] Comment on above: Order Comment: Speci men Type: BLOOD SPECIMEN Performed By: #### 5 8410-2 ####[facility]ORATORYCLIA [id number] [address] MCH (RBC) [Entitic mass] 28.1 pg Normal 26.0-34.0 [facility] Comment on above: Order Comment: Speci men Type: BLOOD SPECIMEN Performed By: #### 5 8410-2 ####[facility]ORATORYCLIA [id number] [address] MCHC (RBC) [Mass/Vol] 29.9 g/dL Low 30.5-36.0 [facility] Comment on above: Order Comment: Speci men Type: BLOOD SPECIMEN Performed By: #### 5 8410-2 ####[facility]ORATORYCLIA [id number] [address] MCV (RBC) [Entitic vol] 94.3 fL Normal 80.0-100.0 [facility] Comment on above: Order Comment: Speci men Type: BLOOD SPECIMEN Performed By: #### 5 8410-2 ####[facility]ATORYCLIA [id number] [address] Nucleated RBC (Bld) [#/Vol] 10*3/uL Normal <0.01 [facility] Comment on above: Order Comment: Speci men Type: BLOOD SPECIMEN Performed By: #### 5 8410-2 ####[facility]ORATORYCLIA [id number] [address] Platelet mean volume (Bld) [Entitic vol] 10.9 fL Normal 9.0-12.7 [facility] Comment on above: Order Comment: Speci men Type: BLOOD SPECIMEN Performed By: #### 5 8410-2 ####[facility]ORATORYCLIA [id number] [address] Platelets (Bld) [#/Vol] 210 10*3/uL Normal 150-400 [facility] Comment on above: Order Comment: Speci men Type: BLOOD SPECIMEN Performed By: #### 5 8410-2 ####[facility]ORATORYCLIA [id number] [address] RBC (Bld) [#/Vol] 3.66 10*6/uL Low 4.20-6.00 [facility] Comment on above: Order Comment: Speci men Type: BLOOD SPECIMEN Performed By: #### 5 8410-2 ####[facility]ORATORYCLIA [id number] [address] WBC (Bld) [#/Vol] 13.03 10*3/uL High 3.70-11.00 [facility] Comment on above: Order Comment: Speci men Type: BLOOD SPECIMEN Performed By: #### 5 8410-2 ####[facility]ORATORYCLIA [id number] [address] CONSULT PROGon 06-11-2021 CONSULT PROG Normal [facility] CONSULT PROG Normal [facility] CONSULT PROG Normal [facility] CT ABD/PEL W IVCONon 022 CT ABD/PEL W IVCON Invalid Interpretation Code [facility] Magnesium SerPl-mCncon 06-11 Magnesium [Mass/Vol] 2.7 mg/dL High 1.7-2.3 [facility] Comment on above: Order Comment: Speci men Type: BLOOD SPECIMEN Performed By: #### 1 9123-9, 2777-1, 53485-2 ####[facility]ORATORYCLIA [id number] [address] Phosphate SerPl-mCncon 06-11 Phosphate [Mass/Vol] 2.5 mg/dL Low 2.7-4.8 [facility] Comment on above: Order Comment: Speci men Type: BLOOD SPECIMEN Performed By: #### 1 9123-9, 2777-1, 44779-2 ####[facility]ORATORYCLIA [id number] [address] OF [facility] Basic metabolic 2000 panelon 06-10-2021 Anion gap [Moles/Vol] 7 mmol/L Low 9-18 [facility] Comment on above: Order Comment: Speci men Type: BLOOD SPECIMEN Performed By: #### 2 777-1, 74685-3, , HFP ####[facility]ATORYCLIA [id number] [place], [place] [id number] [place] [address] [place] OF [facility] Calcium [Mass/Vol] 8.5 mg/dL Normal 8.5-10.2 [facility] Comment on above: Order Comment: Speci men Type: BLOOD SPECIMEN Performed By: #### 2 777-1, 23596-2, , HFP ####[facility]ORATORYCLIA [id number] [place], [place] [address] [place] [address] [place] Chloride [Moles/Vol] 118 mmol/L High 97-105 [facility] Comment on above: Order Comment: Speci men Type: BLOOD SPECIMEN Performed By: #### 2 777-1, 36847-9, , HFP ####[facility]ORATORYCLIA [id number] [address] [place] CO2 [Moles/Vol] 26 mmol/L Normal 22-30 [facility] Comment on above: Order Comment: Speci men Type: BLOOD SPECIMEN Performed By: #### 2 777-1, 94019-0, , HFP ####[facility]ORYCLIA [id number] [address] [place] Creatinine [Mass/Vol] 0.70 mg/dL Low 0.73-1.22 [facility] Comment on above: Order Comment: Speci men Type: BLOOD SPECIMEN Performed By: #### 2 777-1, 31062-6, , HFP ####[facility] LABORATORYCLIA [id number] [place] [address] [place] GFR/1.73 sq M.predicted MDRD (S/P/Bld) [Vol rate/Area] mL/min/{1.73_m2} Normal [facility] Comment on above: Order [...] actual GFR. Performed By: #### 2 777-1, 84899-2, , [facility] ####[facility] LABORATORYCLIA [id number] [place] [address] [place] Glucose [Mass/Vol] 135 mg/dL High 74-99 [facility] Comment on above: Order Comment: Speci men Type: BLOOD SPECIMEN Result Comment: The [place] Diabetes [employer] (ADA) provides guidance for cutoff [...] Standards of Medical Care in Diabetes 2016, [place] [employer]. Diabetes Care. 2016.39(Suppl 1). Performed By: #### 2 777-1, 56134-6, , [facility] ####[facility] LABORATORYIA [id number] [place] [address] [place] Potassium [Moles/Vol] 3.9 mmol/L Normal 3.7-5.1 [facility] Comment on above: Order Comment: Speci men Type: BLOOD SPECIMEN Performed By: #### 2 777-1, 81661-8, , [facility] ####[facility]ORATORYCLIA [id number] [place] [address] [place] Sodium [Moles/Vol] 151 mmol/L High 136-144 [facility] Comment on above: Order Comment: Speci men Type: BLOOD SPECIMEN Performed By: #### 2 777-1, 42275-5, , [facility] ####[facility]ORATORYCLIA [id number] [address] Urea nitrogen [Mass/Vol] 27 mg/dL High 9-24 [facility] Comment on above: Order Comment: Speci men Type: BLOOD SPECIMEN Performed By: #### 2 777-1, 73605-4, , [facility] ####[facility]ORATORYCLIA [id number] [address] CASE MANAGEMon 06-10-2021 CASE MANAGEM Normal [facility] CBC panel Auto (Bld)on 06-10 Erythrocyte distribution width (RBC) [Ratio] 16.2 % High 11.5-15.0 [facility] Comment on above: Order Comment: Speci men Type: BLOOD SPECIMEN Performed By: #### 5 8410-2 ####[facility]ORATORYCLIA [id number] [address] Hematocrit (Bld) [Volume fraction] 34.8 % Low 39.0-51.0 [facility] Comment on above: Order Comment: Speci men Type: BLOOD SPECIMEN Performed By: #### 5 8410-2 ####[facility]ATORYCLIA [id number] [address] Hemoglobin (Bld) [Mass/Vol] 10.2 g/dL Low 13.0-17.0 [facility] Comment on above: Order Comment: Speci men Type: BLOOD SPECIMEN Performed By: #### 5 8410-2 ####[facility]ATORYCLIA [id number] [address] MCH (RBC) [Entitic mass] 27.1 pg Normal 26.0-34.0 [facility] Comment on above: Order Comment: Speci men Type: BLOOD SPECIMEN Performed By: #### 5 8410-2 ####[facility]ORATORYCLIA [id number] [address] MCHC (RBC) [Mass/Vol] 29.3 g/dL Low 30.5-36.0 [facility] Comment on above: Order Comment: Speci men Type: BLOOD SPECIMEN Performed By: #### 5 8410-2 ####[facility]ORATORYCLIA [id number] [address] MCV (RBC) [Entitic vol] 92.6 fL Normal 80.0-100.0 [facility] Comment on above: Order Comment: Speci men Type: BLOOD SPECIMEN Performed By: #### 5 8410-2 ####[facility]ATORYCLIA [id number] [address] Nucleated RBC (Bld) [#/Vol] 10*3/uL Normal <0.01 [facility] Comment on above: Order Comment: Speci men Type: BLOOD SPECIMEN Performed By: #### 5 8410-2 ####[facility]ATORYCLIA [id number] [address] Platelet mean volume (Bld) [Entitic vol] 10.4 fL Normal 9.0-12.7 [facility] Comment on above: Order Comment: Speci men Type: BLOOD SPECIMEN Performed By: #### 5 8410-2 ####[facility]ATORYCLIA [id number] [address] Platelets (Bld) [#/Vol] 206 10*3/uL Normal 150-400 [facility] Comment on above: Order Comment: Speci men Type: BLOOD SPECIMEN Performed By: #### 5 8410-2 ####[facility]ORATORYCLIA [id number] [address] RBC (Bld) [#/Vol] 3.76 10*6/uL Low 4.20-6.00 [facility] Comment on above: Order Comment: Speci men Type: BLOOD SPECIMEN Performed By: #### 5 8410-2 ####[facility]ATORYCLIA [id number] [place] [address] [facility] WBC (Bld) [#/Vol] 11.36 10*3/uL High 3.70-11.00 [facility] Comment on above: Order Comment: Speci men Type: BLOOD SPECIMEN Performed By: #### 5 8410-2 ####[facility]ORYCLIA [id number] [address] HEPATIC FUNCTION PNLon 06-10 Albumin [Mass/Vol] 3.1 g/dL Low 3.9-4.9 [facility] Comment on above: Order Comment: Speci men Type: BLOOD SPECIMEN Performed By: #### 2 777-1, 37913-7, , HFP ####[facility] LABORATORYCLIA [id number] [place], [place] [id number] [place] [address] ALP [Catalytic activity/Vol] 73 U/L Normal 38-113 [facility] Comment on above: Order Comment: Speci men Type: BLOOD SPECIMEN Performed By: #### 2 777-1, 58488-8, , HFP ####[facility]ORYCLIA [id number] [address] ALT With P-5'-P [Catalytic activity/Vol] 64 U/L High 10-54 [facility] Comment on above: Order Comment: Speci men Type: BLOOD SPECIMEN Performed By: #### 2 777-1, 74946-8, , HFP ####[facility]ORYCLIA [id number] [place], [place] [id number] [place] [address] AST With P-5'-P [Catalytic activity/Vol] 44 U/L High 14-40 [facility] Comment on above: Order Comment: Speci men Type: BLOOD SPECIMEN Performed By: #### 2 777-1, 31392-9, , HFP ####[facility]ORYCLIA [id number] [facility] [address] [address] Bilirubin [Mass/Vol] 0.5 mg/dL Normal 0.2-1.3 [facility] Comment on above: Order Comment: Speci men Type: BLOOD SPECIMEN Performed By: #### 2 777-1, 86727-7, , [facility] ####[facility]ORATORYCLIA [id number] [address] Bilirubin.conjugated [Mass/Vol] mg/dL Normal <0.2 [facility] Comment on above: Order Comment: Speci men Type: BLOOD SPECIMEN Performed By: #### 2 777-1, 99217-3, , [facility] ####[facility]ORATORYCLIA [id number] [address] Protein [Mass/Vol] 5.7 g/dL Low 6.3-8.0 [facility] Comment on above: Order Comment: Speci men Type: BLOOD SPECIMEN Performed By: #### 2 777-1, , , [facility] ####[facility]ORATORYCLIA [id number] [address] LEVETIRACETAMon 06-10-2021 levETIRAcetam [Mass/Vol] 57.7 ug/mL High 12.0-46.0 [facility] Comment on above: Order [...] its performance characteristics determined by [facility]'s [facility] Pathology and Laboratory Medicine [place] ( [facility]). It has not been cleared or approved by the FDA. [facility] is regulated under CLIA as qualified to perform high complexity testing. This test is used for clinical purposes. It should not be regarded as investigational or for research. Performed By: #### L EMILYET ####[facility] [facility]CL[facility] [id number] [place] [address] [place] Magnesium SerPl-mCncon 06-10 Magnesium [Mass/Vol] 2.7 mg/dL High 1.7-2.3 [facility] Comment on above: Order Comment: Speci men Type: BLOOD SPECIMEN Performed By: #### 2 777-1, 42164-9, , [facility] ####[facility] LABORATORYCLIA [id number] [place] [address] [place] Phosphate SerPl-ncon 06-10 Phosphate [Mass/Vol] 1.8 mg/dL Low 2.7-4.8 [facility] Comment on above: Order Comment: Speci men Type: BLOOD SPECIMEN Performed By: #### 2 777-1, 13841-4, , [facility] ####[facility] LABORATORYCLIA [id number] [place] [address] [place] ALLIED HEALTHon 06-09-2021 ALLIED HEALTH Normal [facility] ALLIED HEALTH Normal [facility] ALLIED HEALTH Normal [facility] ALLIED HEALTH Normal [facility] Basic metabolic 2000 panelon 06-09-2021 Anion gap [Moles/Vol] 8 mmol/L Low 9-18 [facility] Comment on above: Order Comment: Speci men Type: BLOOD SPECIMEN Performed By: #### 2 4321-2, 2776-05, ####[facility] LABORATORYCLIA [id number] [place] [address] [place] Calcium [Mass/Vol] 8.3 mg/dL Low 8.5-10.2 [facility] Comment on above: Order Comment: Speci men Type: BLOOD SPECIMEN Performed By: #### 2 4321-2, 2776-05, ####[facility] LABORATORYCLIA [id number] [place] [address] [place] Chloride [Moles/Vol] 116 mmol/L High 97-105 [facility] Comment on above: Order Comment: Speci men Type: BLOOD SPECIMEN Performed By: #### 2 4321-2, 2776-05, ####[facility] LABORATORYCLIA [id number] [place] [address] [place] CO2 [Moles/Vol] 27 mmol/L Normal 22-30 [facility] Comment on above: Order Comment: Speci men Type: BLOOD SPECIMEN Performed By: #### 2 4321-2, 2776-05, ####[facility] LABORATORYCLIA [id number] [address] [place] Creatinine [Mass/Vol] 0.70 mg/dL Low 0.73-1.22 [facility] Comment on above: Order Comment: Speci men Type: BLOOD SPECIMEN Performed By: #### 2 4321-2, 2776-05, ####[facility] LABORATORYCLIA [id number] [address] [place] GFR/1.73 sq M.predicted MDRD (S/P/Bld) [Vol rate/Area] mL/min/{1.73_m2} Normal [facility] Comment on above: Order [...] GFR. Performed By: #### 2 4321-2, 2776-05, ####[facility] LABORATORYCLIA [id number] [place] [address] [place] Glucose [Mass/Vol] 123 mg/dL High 74-99 [facility] Comment on above: Order Comment: Speci men Type: BLOOD SPECIMEN Result Comment: The [place] [employer] (ADA) provides guidance for cutoff [...] Standards of Medical Care in Diabetes 2016, [place] [employer]. Diabetes Care. 2016.39(Suppl 1). Performed By: #### 2 4321-2, 2776-05, ####[facility] LABORATORYCLIA [id number] [address] STATES OF [facility] Potassium [Moles/Vol] 3.5 mmol/L Low 3.7-5.1 [facility] Comment on above: Order Comment: Speci men Type: BLOOD SPECIMEN Performed By: #### 2 1-2, 2776-05, ####[facility] LABORATORYCLIA [id number] [address] [facility] Sodium [Moles/Vol] 151 mmol/L High 136-144 [facility] Comment on above: Order Comment: Speci men Type: BLOOD SPECIMEN Performed By: #### 2 1-2, 2776-05, ####[facility] LABORATORYCLIA [id number] [address] [place] Urea nitrogen [Mass/Vol] 39 mg/dL High 9-24 [facility] Comment on above: Order Comment: Speci men Type: BLOOD SPECIMEN Performed By: #### 2 4321-2, 2776-05, ####[facility] LABORATORYCLIA [id number] [address] OF [facility] CBC panel Auto (Bld)on 06-09 Erythrocyte distribution width (RBC) [Ratio] 16.2 % High 11.5-15.0 [facility] Comment on above: Order Comment: Speci men Type: BLOOD SPECIMEN Performed By: #### 5 8410-2 ####[facility] LABORATORYCLIA [id number] [address] Hematocrit (Bld) [Volume fraction] 33.7 % Low 39.0-51.0 [facility] Comment on above: Order Comment: Speci men Type: BLOOD SPECIMEN Performed By: #### 5 8410-2 ####[facility] LABORATORYCLIA [id number] [address] Hemoglobin (Bld) [Mass/Vol] 10.2 g/dL Low 13.0-17.0 [facility] Comment on above: Order Comment: Speci men Type: BLOOD SPECIMEN Performed By: #### 5 8410-2 ####[facility] LABORATORYCLIA [id number] [address] MCH (RBC) [Entitic mass] 27.4 pg Normal 26.0-34.0 [facility] Comment on above: Order Comment: Speci men Type: BLOOD SPECIMEN Performed By: #### 5 8410-2 ####[facility] LABORATORYCLIA [id number] [address] MCHC (RBC) [Mass/Vol] 30.3 g/dL Low 30.5-36.0 [facility] Comment on above: Order Comment: Speci men Type: BLOOD SPECIMEN Performed By: #### 5 8410-2 ####[facility]ORATORYCLIA [id number] [address] MCV (RBC) [Entitic vol] 90.6 fL Normal 80.0-100.0 [facility] Comment on above: Order Comment: Speci men Type: BLOOD SPECIMEN Performed By: #### 5 8410-2 ####[facility]ORATORYCLIA [id number] [address] Nucleated RBC (Bld) [#/Vol] 10*3/uL Normal <0.01 [facility] Comment on above: Order Comment: Speci men Type: BLOOD SPECIMEN Performed By: #### 5 8410-2 ####[facility]ORATORYCLIA [id number] [address] Platelet mean volume (Bld) [Entitic vol] 10.3 fL Normal 9.0-12.7 [facility] Comment on above: Order Comment: Speci men Type: BLOOD SPECIMEN Performed By: #### 5 8410-2 ####[facility] LABORATORYCLIA [id number] [address] Platelets (Bld) [#/Vol] 219 10*3/uL Normal 150-400 [facility] Comment on above: Order Comment: Speci men Type: BLOOD SPECIMEN Performed By: #### 5 8410-2 ####[facility]ORATORYCLIA [id number] [address] RBC (Bld) [#/Vol] 3.72 10*6/uL Low 4.20-6.00 [facility] Comment on above: Order Comment: Speci men Type: BLOOD SPECIMEN Performed By: #### 5 8410-2 ####[facility]ORATORYCLIA [id number] [address] WBC (Bld) [#/Vol] 13.02 10*3/uL High 3.70-11.00 [facility] Comment on above: Order Comment: Speci men Type: BLOOD SPECIMEN Performed By: #### 5 8410-2 ####[facility] LABORATORYCLIA [id number] [address] CONSULT PROGon 06-09-2021 CONSULT PROG Normal [facility] CONSULT PROG Normal [facility] CT BRAIN WO IVCONon 06-09-[address] BRAIN WO IVCON Normal [facility] Magnesium SerPl-mCncon 06-09 Magnesium [Mass/Vol] 2.8 mg/dL High 1.7-2.3 [facility] Comment on above: Order Comment: Speci men Type: BLOOD SPECIMEN Performed By: #### 2 4321-2, 2777-1, 04035-7 ####[facility] LABORATORYCLIA [id number] [address] NURSING PROGon 06-09-2021 NURSING PROG Normal [facility] NUTRITIONon 06-09-2021 NUTRITION Normal [facility] PT EDon 06-09-2021 PT ED Normal [facility] Phosphate SerPl-mCncon 06-09 Phosphate [Mass/Vol] 2.2 mg/dL Low 2.7-4.8 [facility] Comment on above: Order Comment: Speci men Type: BLOOD SPECIMEN Performed By: #### 2 4321-2, 2777-1, 98559-7 ####[facility] LABORATORYCLIA [id number] [address] Vancomycin random [Mass/Vol] on 06-09-2021 Vancomycin [Mass/Vol] 18.9 ug/mL Normal 10.0-20.0 [facility] Comment on above: Order Comment: Speci men Type: BLOOD SPECIMEN Result Comment: Refe rence ranges and high/low indicator flags are provided as general guidelines only. The treating physician must determine appropriate target levels/dosing based on the specific clinical situation. Performed By: #### 4 091-5 ####[facility] LABORATORYCLIA [id number] [address] XR ABD 2V SUPINE W UPR/DECUB /CTLon 06-09-2021 XR ABD 2V SUPINE W UPR/DECUB/CTL Normal [facility] XR CHEST 1V FRONTALon 2021 XR CHEST 1V FRONTAL Normal [facility] XR NECK SOFT TISSUE 2V AP/LA Ton 06-09-2021 XR NECK SOFT TISSUE 2V AP/LAT Normal [facility] XR SKULL 2V AP/LATon 022 XR SKULL 2V AP/LAT Normal [facility] ALLIED HEALTHon 06-08-2021 ALLIED HEALTH Normal [facility] ANES POSTPROC EVALon 022 ANES POSTPROC EVAL Normal [facility] ANES PRE-OPon 06-08-2021 ANES PRE-OP Normal [facility] BRIEF OP NOTon 06-08-2021 BRIEF OP NOT Normal [facility] Bacteria Spec Anaerobe Culto n 06-08-2021 Bacteria identified Anaer cx Nom (Unsp spec) ORGANISM ID: 1 Rare Staphylococcus saccharolyticus Identification performed by [facility] [employer] See scanned document for susceptibility report Normal [facility] Comment on above: Performed By: #### 6 462-6, 635-3 ####[facility] LABORATORYCLIA [id number] [place] [address] [place] Bacteria Wnd Culton 06-08-19 22 Bacteria identified Cx Nom (Wound) CULTURE, INTRAOPERATIVE HARDWARE: No growth 5 days GRAM STAIN: Not performed on specimen type Normal [facility] Comment on above: Performed By: #### 6 462-6, 635-3 ####[facility] LABORATORYCLIA [id number] [place] [address] [place] Basic metabolic 2000 panelon 06-08-2021 Anion gap [Moles/Vol] 9 mmol/L Normal 9-18 [facility] Comment on above: Order Comment: Speci men Type: BLOOD SPECIMEN Performed By: #### 2 4321-2, 2777-1, ####[facility] LABORATORYCLIA [id number] [place] [address] [place] Calcium [Mass/Vol] 8.7 mg/dL Normal 8.5-10.2 [facility] Comment on above: Order Comment: Speci men Type: BLOOD SPECIMEN Performed By: #### 2 4321-2, 2777-, ####[facility] LABORATORYCLIA [id number] [place] [address] [place] Chloride [Moles/Vol] 113 mmol/L High 97-105 [facility] Comment on above: Order Comment: Speci men Type: BLOOD SPECIMEN Performed By: #### 2 4321-2, 2776-05, ####[facility] LABORATORYCLIA [id number] [place] [address] [place] CO2 [Moles/Vol] 26 mmol/L Normal 22-30 [facility] Comment on above: Order Comment: Speci men Type: BLOOD SPECIMEN Performed By: #### 2 4321-2, 2776-05, ####[facility] LABORATORYCLIA [id number] [place] [address] [place] Creatinine [Mass/Vol] 0.68 mg/dL Low 0.73-1.22 [facility] Comment on above: Order Comment: Speci men Type: BLOOD SPECIMEN Performed By: #### 2 4321-2, 2776-05, ####[facility] LABORATORYCLIA [id number] [address] [place] GFR/1.73 sq M.predicted MDRD (S/P/Bld) [Vol rate/Area] mL/min/{1.73_m2} Normal [facility] Comment on above: Order [...] GFR. Performed By: #### 2 4321-2, 2776-05, ####[facility] LABORATORYCLIA [id number] [place] [address] [place] Glucose [Mass/Vol] 146 mg/dL High 74-99 [facility] Comment on above: Order Comment: Speci men Type: BLOOD SPECIMEN Result Comment: The [place] Diabetes [employer] (ADA) provides guidance for cutoff [...] Standards of Medical Care in Diabetes 2016, [place] [employer]. Diabetes Care. 2016.39(Suppl 1). Performed By: #### 2 4321-2, 2776-05, ####[facility] LABORATORYCLIA [id number] [address] STATES OF [facility] Potassium [Moles/Vol] 3.6 mmol/L Low 3.7-5.1 [facility] Comment on above: Order Comment: Speci men Type: BLOOD SPECIMEN Performed By: #### 2 1-2, 2776-05, ####[facility] LABORATORYCLIA [id number] [address] [facility] Sodium [Moles/Vol] 148 mmol/L High 136-144 [facility] Comment on above: Order Comment: Speci men Type: BLOOD SPECIMEN Performed By: #### 2 4321-2, 2776-05, ####[facility] LABORATORYCLIA [id number] [address] [place] Urea nitrogen [Mass/Vol] 36 mg/dL High 9-24 [facility] Comment on above: Order Comment: Speci men Type: BLOOD SPECIMEN Performed By: #### 2 4321-2, 2776-05, ####[facility] LABORATORYCLIA [id number] [address] OF [facility] CASE MANAGEMon 06-08-2021 CASE MANAGEM Normal [facility] CBC panel Auto (Bld)on 06-08 Erythrocyte distribution width (RBC) [Ratio] 16.0 % High 11.5-15.0 [facility] Comment on above: Order Comment: Speci men Type: BLOOD SPECIMEN Performed By: #### 5 8410-2 ####[facility] LABORATORYCLIA [id number] [address] Hematocrit (Bld) [Volume fraction] 38.4 % Low 39.0-51.0 [facility] Comment on above: Order Comment: Speci men Type: BLOOD SPECIMEN Performed By: #### 5 8410-2 ####[facility] LABORATORYCLIA [id number] [address] Hemoglobin (Bld) [Mass/Vol] 12.1 g/dL Low 13.0-17.0 [facility] Comment on above: Order Comment: Speci men Type: BLOOD SPECIMEN Performed By: #### 5 8410-2 ####[facility] LABORATORYCLIA [id number] [address] MCH (RBC) [Entitic mass] 28.3 pg Normal 26.0-34.0 [facility] Comment on above: Order Comment: Speci men Type: BLOOD SPECIMEN Performed By: #### 5 8410-2 ####[facility] LABORATORYCLIA [id number] [address] MCHC (RBC) [Mass/Vol] 31.5 g/dL Normal 30.5-36.0 [facility] Comment on above: Order Comment: Speci men Type: BLOOD SPECIMEN Performed By: #### 5 8410-2 ####[facility] LABORATORYCLIA [id number] [address] MCV (RBC) [Entitic vol] 89.9 fL Normal 80.0-100.0 [facility] Comment on above: Order Comment: Speci men Type: BLOOD SPECIMEN Performed By: #### 5 8410-2 ####[facility] LABORATORYCLIA [id number] [address] Nucleated RBC (Bld) [#/Vol] 10*3/uL Normal <0.01 [facility] Comment on above: Order Comment: Speci men Type: BLOOD SPECIMEN Performed By: #### 5 8410-2 ####[facility] LABORATORYCLIA [id number] [address] Platelet mean volume (Bld) [Entitic vol] 10.3 fL Normal 9.0-12.7 [facility] Comment on above: Order Comment: Speci men Type: BLOOD SPECIMEN Performed By: #### 5 8410-2 ####[facility] LABORATORYCLIA [id number] [address] [facility] Platelets (Bld) [#/Vol] 236 10*3/uL Normal 150-400 [facility] Comment on above: Order Comment: Speci men Type: BLOOD SPECIMEN Performed By: #### 5 8410-2 ####[facility] LABORATORYCLIA [id number] [address] RBC (Bld) [#/Vol] 4.27 10*6/uL Normal 4.20-6.00 [facility] Comment on above: Order Comment: Speci men Type: BLOOD SPECIMEN Performed By: #### 5 8410-2 ####[facility] LABORATORYCLIA [id number] [address] WBC (Bld) [#/Vol] 11.06 10*3/uL High 3.70-11.00 [facility] Comment on above: Order Comment: Speci men Type: BLOOD SPECIMEN Performed By: #### 5 8410-2 ####[facility] LABORATORYCLIA [id number] [address] CONSULT PROGon 06-08-2021 CONSULT PROG Normal [facility] CT BRAIN WO IVCONon 06-08-[address] BRAIN WO IVCON Normal [facility] Magnesium SerPl-mCncon 06-08 Magnesium [Mass/Vol] 2.8 mg/dL High 1.7-2.3 [facility] Comment on above: Order Comment: Speci men Type: BLOOD SPECIMEN Performed By: #### 2 4321-2, 2777-1, 43484-6 ####[facility] LABORATORYCLIA [id number] [address] Microorganism Spec Culton Microorganism identified Cx Nom (Unsp spec) CULTURE, FUNGAL: No Fungus isolated after 28 days FUNGAL SMEAR: No fungus seen Normal [facility] Comment on above: Performed By: #### 1 1475-1 ####[facility] LABORATORYCLIA [id number] [address] NURSING PROGon 06-08-2021 NURSING PROG Normal [facility] OPERATIVE NOon 06-08-2021 OPERATIVE NO Normal [facility] OPERATIVE NO [facility] PT panel Coag (PPP)on 2021 INR Coag (PPP) [Relative time] 1.1 {INR} Normal 0.9-1.3 [facility] Comment on above: Order Comment: Speci men Type: BLOOD SPECIMEN Result Comment: Yris min K Antagonist (VKA) Therapeutic Range: INR 2 to 3 (Target INR of 2.5)Note: For patients treated with VKA drugs, such as warfarin, the [place] [employer] 2012 Guideline recommends [...] al. Chest 2012, 141:7S-47SAlba MURRY et al. [facility] 2017, 70: 252-289 Performed By: #### 3 4528-0, 37345-7 ####[facility] LABORATORYCLIA [id number] [address] PT Coag (PPP) [Time] 11.9 s Normal 9.7-13.0 [facility] Comment on above: Order Comment: Speci men Type: BLOOD SPECIMEN Performed By: #### 3 4528-0, 41214-5 ####[facility] LABORATORYCLIA [id number] [address] OF [facility] Phosphate SerPl-mCncon 06-08 Phosphate [Mass/Vol] 2.3 mg/dL Low 2.7-4.8 [facility] Comment on above: Order Comment: Speci men Type: BLOOD SPECIMEN Performed By: #### 2 4321-2, 2777-1, 41520-3 ####[facility] LABORATORYCLIA [id number] [address] aPTT PPPon 06-08-2021 aPTT Coag (PPP) [Time] 24.2 s Normal 23.0-32.4 [facility] Comment on above: Order Comment: Speci men Type: BLOOD SPECIMEN Performed By: #### 3 4528-0, 84498-2 ####[facility] LABORATORYCLIA [id number] [address] OF [facility] ALLIED HEALTHon 06-07-2021 ALLIED HEALTH Normal [facility] ALLIED HEALTH Normal [facility] ALLIED HEALTH Normal [facility] Bacteria CSF Culton 06-07-19 22 Bacteria identified Cx Nom (CSF) CULTURE, CSF: No growth 14 days GRAM STAIN: No organisms seen Rare Mononuclear cells Rare Polymorphonuclear leukocytes Gram stain performed on cytospun specimen. Normal [facility] Comment on above: Performed By: #### 6 06-4 ####[facility] LABORATORYCLIA [id number] [address] OF [facility] Basic metabolic 2000 panelon 06-07-2021 Anion gap [Moles/Vol] 9 mmol/L Normal 9-18 [facility] Comment on above: Order Comment: Speci men Type: BLOOD SPECIMEN Performed By: #### 1 9123-9, 2777-1, 24825-8 ####[facility] LABORATORYCLIA [id number] [address] STATES OF [facility] Calcium [Mass/Vol] 8.8 mg/dL Normal 8.5-10.2 [facility] Comment on above: Order Comment: Speci men Type: BLOOD SPECIMEN Performed By: #### 1 9123-9, 2777-1, 94310-4 ####[facility] LABORATORYCLIA [id number] [address] [place] Chloride [Moles/Vol] 111 mmol/L High 97-105 [facility] Comment on above: Order Comment: Speci men Type: BLOOD SPECIMEN Performed By: #### 1 9123-9, 2776-05, 82759-7 ####[facility] LABORATORYCLIA [id number] [address] CO2 [Moles/Vol] 27 mmol/L Normal 22-30 [facility] Comment on above: Order Comment: Speci men Type: BLOOD SPECIMEN Performed By: #### 1 9123-9, 27711-04, 55475-3 ####[facility] LABORATORYCLIA [id number] [address] OF [facility] Creatinine [Mass/Vol] 0.66 mg/dL Low 0.73-1.22 [facility] Comment on above: Order Comment: Speci men Type: BLOOD SPECIMEN Performed By: #### 1 9123-9, 2777, 63400-0 ####[facility] LABORATORYCLIA [id number] [address] [place] GFR/1.73 sq M.predicted MDRD (S/P/Bld) [Vol rate/Area] mL/min/{1.73_m2} Normal [facility] Comment on above: Order [...] GFR. Performed By: #### 1 9123-9, 2776-05, 24329-5 ####[facility] LABORATORYCLIA [id number] [place] [address] [place] Glucose [Mass/Vol] 123 mg/dL High 74-99 [facility] Comment on above: Order Comment: Speci men Type: BLOOD SPECIMEN Result Comment: The [place] [employer] (ADA) provides guidance for cutoff [...] Standards of Medical Care in Diabetes 2016, [place] [employer]. Diabetes Care. 2016.39(Suppl 1). Performed By: #### 1 9123-9, 2776-05, ####[facility] LABORATORYCLIA [id number] [address] STATES OF [facility] Potassium [Moles/Vol] 3.6 mmol/L Low 3.7-5.1 [facility] Comment on above: Order Comment: Speci men Type: BLOOD SPECIMEN Performed By: #### 1 9123-9, 2776-05, 02249-9 ####[facility] LABORATORYCLIA [id number] [address] [place] Sodium [Moles/Vol] 147 mmol/L High 136-144 [facility] Comment on above: Order Comment: Speci men Type: BLOOD SPECIMEN Performed By: #### 1 9123-9, 2777-1, 39076-6 ####[facility]ORY[facility] [id number] [address] [place] Urea nitrogen [Mass/Vol] 30 mg/dL High 9-24 [facility] Comment on above: Order Comment: Speci men Type: BLOOD SPECIMEN Performed By: #### 1 9123-9, 2777-1, 25296-8 ####[facility]ATORYCLIA [id number] [address] [facility] CBC W Auto Differential pane l (Bld)on 06-07-2021 Basophils (Bld) [#/Vol] 10*3/uL Normal <0.11 [facility] Comment on above: Order Comment: Speci men Type: BLOOD SPECIMEN Performed By: #### 5 7021-8 ####[facility]ATORYCLIA [id number] [address] Basophils/100 WBC (Bld) 0.2 % Normal [facility] Comment on above: Order Comment: Speci men Type: BLOOD SPECIMEN Performed By: #### 5 7021-8 ####[facility]ATORYCLIA [id number] [address] Differential cell count method Nom (Bld) Auto Normal [facility] Comment on above: Order Comment: Speci men Type: BLOOD SPECIMEN Performed By: #### 5 7021-8 ####[facility]ATORYCLIA [id number] [address] [place] Eosinophils (Bld) [#/Vol] 0.06 10*3/uL Normal <0.46 [facility] Comment on above: Order Comment: Speci men Type: BLOOD SPECIMEN Performed By: #### 5 7021-8 ####[facility]ATORYCLIA [id number] [address] Eosinophils/100 WBC (Bld) 0.6 % Normal [facility] Comment on above: Order Comment: Speci men Type: BLOOD SPECIMEN Performed By: #### 5 7021-8 ####[facility]ORATORYCLIA [id number] [address] Erythrocyte distribution width (RBC) [Ratio] 15.8 % High 11.5-15.0 [facility] Comment on above: Order Comment: Speci men Type: BLOOD SPECIMEN Performed By: #### 5 7021-8 ####[facility] LABORATORYCLIA [id number] [address] Hematocrit (Bld) [Volume fraction] 40.4 % Normal 39.0-51.0 [facility] Comment on above: Order Comment: Speci men Type: BLOOD SPECIMEN Performed By: #### 5 7021-8 ####[facility] LABORATORYCLIA [id number] [address] Hemoglobin (Bld) [Mass/Vol] 12.4 g/dL Low 13.0-17.0 [facility] Comment on above: Order Comment: Speci men Type: BLOOD SPECIMEN Performed By: #### 5 7021-8 ####[facility] LABORATORYCLIA [id number] [address] IMMATURE GRAN % 0.7 % Normal [facility] Comment on above: Order Comment: Speci men Type: BLOOD SPECIMEN Performed By: #### 5 7021-8 ####[facility] LABORATORYCLIA [id number] [address] IMMATURE GRAN ABS 0.07 k/uL Normal <0.10 [facility] Comment on above: Order Comment: Speci men Type: BLOOD SPECIMEN Performed By: #### 5 7021-8 ####[facility] LABORATORYCLIA [id number] [address] Lymphocytes (Bld) [#/Vol] 1.43 10*3/uL Normal 1.00-4.00 [facility] Comment on above: Order Comment: Speci men Type: BLOOD SPECIMEN Performed By: #### 5 7021-8 ####[facility] LABORATORYCLIA [id number] [address] Lymphocytes/100 WBC (Bld) 14.1 % Normal [facility] Comment on above: Order Comment: Speci men Type: BLOOD SPECIMEN Performed By: #### 5 7021-8 ####[facility] LABORATORYCLIA [id number] [address] MCH (RBC) [Entitic mass] 27.6 pg Normal 26.0-34.0 [facility] Comment on above: Order Comment: Speci men Type: BLOOD SPECIMEN Performed By: #### 5 7021-8 ####[facility] LABORATORYCLIA [id number] [address] MCHC (RBC) [Mass/Vol] 30.7 g/dL Normal 30.5-36.0 [facility] Comment on above: Order Comment: Speci men Type: BLOOD SPECIMEN Performed By: #### 5 7021-8 ####[facility] LABORATORYCLIA [id number] [address] MCV (RBC) [Entitic vol] 89.8 fL Normal 80.0-100.0 [facility] Comment on above: Order Comment: Speci men Type: BLOOD SPECIMEN Performed By: #### 5 7021-8 ####[facility] LABORATORYCLIA [id number] [address] Monocytes (Bld) [#/Vol] 0.82 10*3/uL Normal <0.87 [facility] Comment on above: Order Comment: Speci men Type: BLOOD SPECIMEN Performed By: #### 5 7021-8 ####[facility] LABORATORYCLIA [id number] [address] Monocytes/100 WBC (Bld) 8.1 % Normal [facility] Comment on above: Order Comment: Speci men Type: BLOOD SPECIMEN Performed By: #### 5 7021-8 ####[facility] LABORATORYCLIA [id number] [address] Neutrophils (Bld) [#/Vol] 7.74 10*3/uL High 1.45-7.50 [facility] Comment on above: Order Comment: Speci men Type: BLOOD SPECIMEN Performed By: #### 5 7021-8 ####[facility] LABORATORYCLIA [id number] [address] Neutrophils/100 WBC (Bld) 76.3 % Normal [facility] Comment on above: Order Comment: Speci men Type: BLOOD SPECIMEN Performed By: #### 5 7021-8 ####[facility]ORATORYCLIA [id number] [address] Nucleated RBC (Bld) [#/Vol] 10*3/uL Normal <0.01 [facility] Comment on above: Order Comment: Speci men Type: BLOOD SPECIMEN Performed By: #### 5 7021-8 ####[facility] LABORATORYCLIA [id number] [address] Nucleated RBC/100 WBC (Bld) [Ratio] 0.0 /100 WBC Normal 0.0 [facility] Comment on above: Order Comment: Speci men Type: BLOOD SPECIMEN Performed By: #### 5 7021-8 ####[facility] LABORATORYCLIA [id number] [address] Platelet mean volume (Bld) [Entitic vol] 10.4 fL Normal 9.0-12.7 [facility] Comment on above: Order Comment: Speci men Type: BLOOD SPECIMEN Performed By: #### 5 7021-8 ####[facility] LABORATORYCLIA [id number] [address] Platelets (Bld) [#/Vol] 236 10*3/uL Normal 150-400 [facility] Comment on above: Order Comment: Speci men Type: BLOOD SPECIMEN Performed By: #### 5 7021-8 ####[facility]ATORYCLIA [id number] [address] RBC (Bld) [#/Vol] 4.50 10*6/uL Normal 4.20-6.00 [facility] Comment on above: Order Comment: Speci men Type: BLOOD SPECIMEN Performed By: #### 5 7021-8 ####[facility] LABORATORYCLIA [id number] [address] WBC (Bld) [#/Vol] 10.14 10*3/uL Normal 3.70-11.00 [facility] Comment on above: Order Comment: Speci men Type: BLOOD SPECIMEN Performed By: #### 5 7021-8 ####[facility] LABORATORYCLIA [id number] [address] CBC panel Auto (Bld)on 06-07 Erythrocyte distribution width (RBC) [Ratio] 15.8 % High 11.5-15.0 [facility] Comment on above: Order Comment: Speci men Type: BLOOD SPECIMEN Performed By: #### 5 8410-2 ####[facility] LABORATORYCLIA [id number] [address] Hematocrit (Bld) [Volume fraction] 40.0 % Normal 39.0-51.0 [facility] Comment on above: Order Comment: Speci men Type: BLOOD SPECIMEN Performed By: #### 5 8410-2 ####[facility] LABORATORYCLIA [id number] [address] Hemoglobin (Bld) [Mass/Vol] 12.3 g/dL Low 13.0-17.0 [facility] Comment on above: Order Comment: Speci men Type: BLOOD SPECIMEN Performed By: #### 5 8410-2 ####[facility] LABORATORYCLIA [id number] [address] MCH (RBC) [Entitic mass] 27.3 pg Normal 26.0-34.0 [facility] Comment on above: Order Comment: Speci men Type: BLOOD SPECIMEN Performed By: #### 5 8410-2 ####[facility] LABORATORYCLIA [id number] [address] MCHC (RBC) [Mass/Vol] 30.8 g/dL Normal 30.5-36.0 [facility] Comment on above: Order Comment: Speci men Type: BLOOD SPECIMEN Performed By: #### 5 8410-2 ####[facility] LABORATORYCLIA [id number] [address] MCV (RBC) [Entitic vol] 88.7 fL Normal 80.0-100.0 [facility] Comment on above: Order Comment: Speci men Type: BLOOD SPECIMEN Performed By: #### 5 8410-2 ####[facility] LABORATORYCLIA [id number] [address] Nucleated RBC (Bld) [#/Vol] 10*3/uL Normal <0.01 [facility] Comment on above: Order Comment: Speci men Type: BLOOD SPECIMEN Performed By: #### 5 8410-2 ####[facility] LABORATORYCLIA [id number] [address] Platelet mean volume (Bld) [Entitic vol] 10.0 fL Normal 9.0-12.7 [facility] Comment on above: Order Comment: Speci men Type: BLOOD SPECIMEN Performed By: #### 5 8410-2 ####[facility] LABORATORYCLIA [id number] [address] Platelets (Bld) [#/Vol] 234 10*3/uL Normal 150-400 [facility] Comment on above: Order Comment: Speci men Type: BLOOD SPECIMEN Performed By: #### 5 8410-2 ####[facility] LABORATORYCLIA [id number] [address] RBC (Bld) [#/Vol] 4.51 10*6/uL Normal 4.20-6.00 [facility] Comment on above: Order Comment: Speci men Type: BLOOD SPECIMEN Performed By: #### 5 8410-2 ####[facility] LABORATORYCLIA [id number] [place] [address] [place] WBC (Bld) [#/Vol] 11.47 10*3/uL High 3.70-11.00 [facility] Comment on above: Order Comment: Speci men Type: BLOOD SPECIMEN Performed By: #### 5 8410-2 ####[facility] LABORATORYCLIA [id number] [address] [place] CONSULT PROGon 06-07-2021 CONSULT PROG Normal [facility] CONSULT PROG Normal [facility] CSF MANUAL DIFFon 06-07-2021 DIF TTL, CSF 92 cells counted Normal [facility] Comment on above: Order Comment: Speci men Type: CEREBROSPINAL FLUID Performed By: #### 3 4563-7, [id number], [id number] ####[facility] LABORATORYCLIA [id number] [address] [place] EOSIN%, CSF 1 % Normal [facility] Comment on above: Order Comment: Speci men Type: CEREBROSPINAL FLUID Performed By: #### 3 4563-7, [id number], [id number] ####[facility]ORATORYCLIA [id number] [place], [place] [address] [place] [address] [place] LYMPH%, CSF 21 % Low 50-90 [facility] Comment on above: Order Comment: Speci men Type: CEREBROSPINAL FLUID Performed By: #### 3 4563-7, [id number], [id number] ####[facility] LABORATORYCLIA [id number] [address] [place] MACRO%, CSF 27 % High <1 [facility] Comment on above: Order Comment: Speci men Type: CEREBROSPINAL FLUID Result Comment: Tati ected result: Previously reported as 22 % on 06/07/2021 at 1:49 PM EST. Performed By: #### 3 4563-7, [id number], [id number] ####[facility]ATORYCLIA [id number] [place], [place] [address] [place] [address] [place] MONO%, CSF 36 % Normal 10-50 [facility] Comment on above: Order Comment: Speci men Type: CEREBROSPINAL FLUID Performed By: #### 3 4563-7, [id number], [id number] ####[facility]ORATORYCLIA [id number] [address] NEUT%, CSF 11 % High 0-3 [facility] Comment on above: Order Comment: Speci men Type: CEREBROSPINAL FLUID Performed By: #### 3 4563-7, [id number], [id number] ####[facility] LABORATORYCLIA [id number] [address] OTHER CL%, CSF 4 % Normal [facility] Comment on above: Order Comment: Speci men Type: CEREBROSPINAL FLUID Result Comment: Path review to follow.Corrected result: Previously reported as 10 % on 06/07/2021 at 1:49 PM EST. Performed By: #### 3 4563-7, [id number], [id number] ####[facility] LABORATORYCLIA [id number] [address] CSF PATHOLOGIST INTERP (LAB REFLEX ORDER-NO BILL)on 06-07-2021 CSF STAFF REVIEW Negative for maligna nt cells. Rare immature myeloid or ventricular lining cells. Normal [facility] Comment on above: Order Comment: Speci men Type: CEREBROSPINAL FLUID Performed By: #### 3 4563-7, [id number], [id number] ####[facility] LABORATORYCLIA [id number] [address] Pathologist name Reviewed by Eloise rebolledo MD Normal [facility] Comment on above: Order Comment: Speci men Type: CEREBROSPINAL FLUID Performed By: #### 3 4563-7, [id number], [id number] ####[facility] LABORATORYCLIA [id number] [address] BRAIN WO IVCONon 06-07-19 CT BRAIN WO IVCON Normal [facility] CT BRAIN WO IVCON Normal [facility] Cell count panel (CSF)on Clarity (CSF) Clear Normal Clear [facility] Comment on above: Order Comment: Speci men Type: CEREBROSPINAL FLUID Performed By: #### 3 4563-7, [id number], [id number] ####[facility]ATORYCLIA [id number] [address] Clarity (Unsp spec) Not Indicated Normal Clear [facility] Comment on above: Order Comment: Speci men Type: CEREBROSPINAL FLUID Performed By: #### 3 4563-7, [id number], [id number] ####[facility]ORATORYCLIA [id number] [address] Color (CSF) Colorless Normal Colorless [facility] Comment on above: Order Comment: Speci men Type: CEREBROSPINAL FLUID Performed By: #### 3 4563-7, [id number], [id number] ####[facility]ORATORYCLIA [id number] [address] Color (Spun CSF) Not Indicated Normal Colorless [facility] Comment on above: Order Comment: Speci men Type: CEREBROSPINAL FLUID Performed By: #### 3 4563-7, [id number], [id number] ####[facility]ATORYCLIA [id number] [address] CSF TUBE [employer]BER [employer] Normal [facility] Comment on above: Order Comment: Speci men Type: CEREBROSPINAL FLUID Performed By: #### 3 4563-7, [id number], DHH1039 ####[facility]ORATORYCLIA [id number] [address] RBC Manual cnt (CSF) [#/Vol] 42 cells/uL High 0-5 [facility] Comment on above: Order Comment: Speci men Type: CEREBROSPINAL FLUID Performed By: #### 3 4563-7, [id number], [id number] ####[facility]ATORYCLIA [id number] [address] WBC Manual cnt (CSF) [#/Vol] 1 cells/uL Normal 0-5 [facility] Comment on above: Order Comment: Speci men Type: CEREBROSPINAL FLUID Performed By: #### 3 4563-7, [id number], [id number] ####[facility]ORATORYCLIA [id number] [place] [address] [place] Glucose CSF-mCncon 2 Glucose (CSF) [Mass/Vol] 92 mg/dL High 40-70 [facility] Comment on above: Order Comment: Speci men Type: CEREBROSPINAL FLUID Result Comment: Lumb ar CSF glucose values of healthy patients are approximately 60% of the plasma values and must always be compared with a concurrently measured plasma value for adequate clinical interpretation.References: 1. Glucose HK (GLUC3) [package insert V 12.0 Spanish]. [employer], [place], [place]. September 2015. 2. Michelle Moore, Loki H. (2015). Chapter 7: Glucose and Lactate. Marianela Rothman.(eds.), Cerebrospinal Fluid in Clinical Neurology. [place]: [employer]. Performed By: #### 2 880-3, 2342-4 ####[facility] LABORATORYCLIA [id number] [address] [place] Lactate (Bld) [Moles/Vol]on 06-07-2021 Lactate [Moles/Vol] 0.9 mmol/L Normal 0.5-2.2 [facility] Comment on above: Order Comment: Speci men Type: BLOOD SPECIMEN Performed By: #### 3 2693-4 ####[facility] LABORATORYCLIA [id number] [address] [place] Lipase SerPl-cCncon 06-07-19 22 Lipase [Catalytic activity/Vol] 35 U/L Normal 16-61 [facility] Comment on above: Order Comment: Speci men Type: BLOOD SPECIMEN Performed By: #### 3 040-3, PROCAL ####[facility] LABORATORYCLIA [id number] [address] [place] Magnesium SerPl-ncon 06-07 Magnesium [Mass/Vol] 2.7 mg/dL High 1.7-2.3 [facility] Comment on above: Order Comment: Speci men Type: BLOOD SPECIMEN Performed By: #### 1 9123-9, 2777-1, 20349-5 ####[facility] LABORATORYCLIA [id number] [address] PROCALCITONIN (LAB)on 2021 Procalcitonin [Mass/Vol] 0.13 ng/mL High <0.09 [facility] Comment on above: Order Comment: Speci men Type: BLOOD SPECIMEN Result Comment: For a guided interpretation of test results, please visit the Change in Procalcitonin Calculator, [email or web address]. Performed By: #### 3 040-3, PROCAL ####[facility] LABORATORYCLIA [id number] [address] Phosphate SerPl-ncon 06-07 Phosphate [Mass/Vol] 1.9 mg/dL Low 2.7-4.8 [facility] Comment on above: Order Comment: Speci men Type: BLOOD SPECIMEN Performed By: #### 1 9123-9, 2777-1, 80490-1 ####[facility] LABORATORYCLIA [id number] [address] Prot CSF-ncon 06-07-2021 Protein (CSF) [Mass/Vol] 33 mg/dL Normal 15-45 [facility] Comment on above: Order Comment: Speci men Type: CEREBROSPINAL FLUID Performed By: #### 2 880-3, 2342-4 ####[facility] LABORATORYCLIA [id number] [address] OF [facility] SARS-CoV-2 RNA Resp Ql MEGAN+p robeon 06-07-2021 SARS-CoV-2 (COVID-19) RNA MEGAN+probe Ql (Resp) COVID 19 RESULT: SARS-CoV-2 (Agent of COVID-19) Not Detected by PCR. This test has been authorized by FDA under an Emergency Use Authorization (EUA). Normal [facility] Comment on above: Performed By: #### 9 4500-6 ####[facility] LABORATORYCLIA [id number] [address] TYPE AND SCREENon 06-07-2021 ABO O Normal [facility] Comment on above: Order Comment: Speci men Type: BLOOD SPECIMEN Performed By: #### T SCR ####[facility] BLO[facility] BANKCLIA [id number] [address] HISTORICAL AB SCR STATUS Negative Normal [facility] Comment on above: Order Comment: Speci men Type: BLOOD SPECIMEN Performed By: #### T SCR ####[facility] BLO[facility] BANKCLIA [id number] [address] Rh Nom (Bld) Positive Normal [facility] Comment on above: Order Comment: Speci men Type: BLOOD SPECIMEN Performed By: #### T SCR ####[facility] BLOOD BANKCLIA [id number] [address] TYPE AND SCREEN EXPIRATION 06/10/2021 23:59 Normal [facility] Comment on above: Order Comment: Speci men Type: BLOOD SPECIMEN Performed By: #### T SCR ####[facility] BLOOD BANKCLIA [id number] [address] Vancomycin random [Mass/Vol] on 06-07-2021 Vancomycin [Mass/Vol] 16.5 ug/mL Normal 10.0-20.0 [facility] Comment on above: Order Comment: Speci men Type: BLOOD SPECIMEN Result Comment: Refe rence ranges and high/low indicator flags are provided as general guidelines only. The treating physician must determine appropriate target levels/dosing based on the specific clinical situation. Performed By: #### 4 091-5 ####[facility] LABORATORYCLIA [id number] [address] XR CHEST 1V FRONTAL PORTon 0 06-07-2021 XR CHEST 1V FRONTAL PORT Normal [facility] Basic metabolic 2000 panelon 06-06-2021 Anion gap [Moles/Vol] 11 mmol/L Normal 9-18 [facility] Comment on above: Order Comment: Speci men Type: BLOOD SPECIMEN Performed By: #### 2 4321-2, , 2776-05 ####[facility] LABORATORYCLIA [id number] [place], [place] [address] [place] [address] [place] Calcium [Mass/Vol] 8.6 mg/dL Normal 8.5-10.2 [facility] Comment on above: Order Comment: Speci men Type: BLOOD SPECIMEN Performed By: #### 2 4321-2, , 2776-05 ####[facility] LABORATORYCLIA [id number] [address] STATES OF [facility] Chloride [Moles/Vol] 108 mmol/L High 97-105 [facility] Comment on above: Order Comment: Speci men Type: BLOOD SPECIMEN Performed By: #### 2 4321-2, , 2776-05 ####[facility] LABORATORYCLIA [id number] [address] [place] CO2 [Moles/Vol] 25 mmol/L Normal 22-30 [facility] Comment on above: Order Comment: Speci men Type: BLOOD SPECIMEN Performed By: #### 2 4321-2, , 2776-05 ####[facility] LABORATORYCLIA [id number] [address] [place] Creatinine [Mass/Vol] 0.76 mg/dL Normal 0.73-1.22 [facility] Comment on above: Order Comment: Speci men Type: BLOOD SPECIMEN Performed By: #### 2 4321-2, , 2776-05 ####[facility] LABORATORYCLIA [id number] [address] [place] GFR/1.73 sq M.predicted MDRD (S/P/Bld) [Vol rate/Area] mL/min/{1.73_m2} Normal [facility] Comment on above: Order [...] Performed By: #### 2 1-2, , 2776-05 ####[facility] LABORATORYCLIA [id number] [place] [address] [place] Glucose [Mass/Vol] 116 mg/dL High 74-99 [facility] Comment on above: Order Comment: Speci men Type: BLOOD SPECIMEN Result Comment: The [place] Diabetes Association (ADA) provides guidance for cutoff [...] Standards of Medical Care in Diabetes 2016, [place] [employer]. Diabetes Care. 2016.39(Suppl 1). Performed By: #### 2 4320-2, , 2776-05 ####[facility] LABORATORYCLIA [id number] [address] [place] Potassium [Moles/Vol] 3.5 mmol/L Low 3.7-5.1 [facility] Comment on above: Order Comment: Speci men Type: BLOOD SPECIMEN Performed By: #### 2 4320-2, , 2776-05 ####[facility] LABORATORYCLIA [id number] [address] [place] Sodium [Moles/Vol] 144 mmol/L Normal 136-144 [facility] Comment on above: Order Comment: Speci men Type: BLOOD SPECIMEN Performed By: #### 2 4321-2, , 2776-05 ####[facility] LABORATORYCLIA [id number] [address] [facility] Urea nitrogen [Mass/Vol] 31 mg/dL High 9-24 [facility] Comment on above: Order Comment: Speci men Type: BLOOD SPECIMEN Performed By: #### 2 4321-2, 02713-6, 2776-05 ####[facility] LABORATORYCLIA [id number] [address] CASE MANAGEMon 06-06-2021 CASE MANAGEM Normal [facility] CBC panel Auto (Bld)on 06-06 Erythrocyte distribution width (RBC) [Ratio] 15.8 % High 11.5-15.0 [facility] Comment on above: Order Comment: Speci men Type: BLOOD SPECIMEN Performed By: #### 5 8410-2 ####[facility] LABORATORYCLIA [id number] [address] Hematocrit (Bld) [Volume fraction] 39.5 % Normal 39.0-51.0 [facility] Comment on above: Order Comment: Speci men Type: BLOOD SPECIMEN Performed By: #### 5 8410-2 ####[facility] LABORATORYCLIA [id number] [address] Hemoglobin (Bld) [Mass/Vol] 12.2 g/dL Low 13.0-17.0 [facility] Comment on above: Order Comment: Speci men Type: BLOOD SPECIMEN Performed By: #### 5 8410-2 ####[facility] LABORATORYCLIA [id number] [address] MCH (RBC) [Entitic mass] 27.8 pg Normal 26.0-34.0 [facility] Comment on above: Order Comment: Speci men Type: BLOOD SPECIMEN Performed By: #### 5 8410-2 ####[facility] LABORATORYCLIA [id number] [address] MCHC (RBC) [Mass/Vol] 30.9 g/dL Normal 30.5-36.0 [facility] Comment on above: Order Comment: Speci men Type: BLOOD SPECIMEN Performed By: #### 5 8410-2 ####[facility] LABORATORYCLIA [id number] [address] MCV (RBC) [Entitic vol] 90.0 fL Normal 80.0-100.0 [facility] Comment on above: Order Comment: Speci men Type: BLOOD SPECIMEN Performed By: #### 5 8410-2 ####[facility] LABORATORYCLIA [id number] [address] Nucleated RBC (Bld) [#/Vol] 10*3/uL Normal <0.01 [facility] Comment on above: Order Comment: Speci men Type: BLOOD SPECIMEN Performed By: #### 5 8410-2 ####[facility] LABORATORYCLIA [id number] [address] Platelet mean volume (Bld) [Entitic vol] 10.4 fL Normal 9.0-12.7 [facility] Comment on above: Order Comment: Speci men Type: BLOOD SPECIMEN Performed By: #### 5 8410-2 ####[facility] LABORATORYCLIA [id number] [address] Platelets (Bld) [#/Vol] 236 10*3/uL Normal 150-400 [facility] Comment on above: Order Comment: Speci men Type: BLOOD SPECIMEN Performed By: #### 5 8410-2 ####[facility] LABORATORYCLIA [id number] [address] RBC (Bld) [#/Vol] 4.39 10*6/uL Normal 4.20-6.00 [facility] Comment on above: Order Comment: Speci men Type: BLOOD SPECIMEN Performed By: #### 5 8410-2 ####[facility] LABORATORYCLIA [id number] [address] WBC (Bld) [#/Vol] 9.74 10*3/uL Normal 3.70-11.00 [facility] Comment on above: Order Comment: Speci men Type: BLOOD SPECIMEN Performed By: #### 5 8410-2 ####[facility] LABORATORYCLIA [id number] [place] [id number] [facility] CONSULT PROGon 06-06-2021 CONSULT PROG Normal [facility] CONSULT PROG Normal [facility] Magnesium SerPl-mCncon 06-06 Magnesium [Mass/Vol] 2.5 mg/dL High 1.7-2.3 [facility] Comment on above: Order Comment: Speci men Type: BLOOD SPECIMEN Performed By: #### 2 4321-2, 13829-4, 2777-1 ####[facility] LABORATORYCLIA [id number] [address] PT panel Coag (PPP)on 2021 INR Coag (PPP) [Relative time] 1.0 {INR} Normal 0.9-1.3 [facility] Comment on above: Order Comment: Speci men Type: BLOOD SPECIMEN Result Comment: Yris min K Antagonist (VKA) Therapeutic Range: INR 2 to 3 (Target INR of 2.5)Note: For patients treated with VKA drugs, such as warfarin, the [place] [employer] 2012 Guideline recommends [...] al. Chest 2012, 141:7S-47SAlba MURRY, et al. [facility] 2017, 70: 252-289 Performed By: #### 3 4528-0, 16728-6 ####[facility] LABORATORYCLIA [id number] [address] PT Coag (PPP) [Time] 11.4 s Normal 9.7-13.0 [facility] Comment on above: Order Comment: Speci men Type: BLOOD SPECIMEN Performed By: #### 3 4528-0, 44690-9 ####[facility] LABORATORYCLIA [id number] [address] Phosphate SerPl-mCncon 06-06 Phosphate [Mass/Vol] 2.3 mg/dL Low 2.7-4.8 [facility] Comment on above: Order Comment: Speci men Type: BLOOD SPECIMEN Performed By: #### 2 4321-2, 11469-4, 2777-1 ####[facility] LABORATORYCLIA [id number] [address] THROMBOGRAPH HEPARINASE PANE Kiel 06-06-2021 Clot angle after addition of heparinase TEG (Bld) [Angle] 70.2 degrees Normal 47.0-74.0 [facility] Comment on above: Order Comment: Speci men Type: BLOOD SPECIMEN Performed By: #### T EGHPP ####[facility] LABORATORYCLIA [id number] [address] Clot Lysis 30 Min post maximum clot amplitude TEG (Bld) [Length fraction] 0.0 % Normal 0.0-8.0 [facility] Comment on above: Order Comment: Speci men Type: BLOOD SPECIMEN Performed By: #### T EGHPP ####[facility] LABORATORYCLIA [id number] [address] Clotting time after addition of heparinase TEG (Bld) 5.7 minutes Normal 4.0-10.0 [facility] Comment on above: Order Comment: Speci men Type: BLOOD SPECIMEN Performed By: #### T EGHPP ####[facility] LABORATORYCLIA [id number] [address] Coagulation index TEG Qn (Bld) 1.2 Normal -4.6-3.2 [facility] Comment on above: Order Comment: Speci men Type: BLOOD SPECIMEN Result Comment: The Coagulation Index, a secondary parameter, is labeled by the farm equipment engineer as for research use only and is used per the farm equipment engineer's instructions. Its performance characteristics were determined by [facility]'s Isrrael Chris [facility] Pathology and Laboratory Medicine [place] in a manner consistent with CLIA requirements. This test has not been cleared by the U.S. Food and Drug Administration. Performed By: #### T EGHPP ####[facility]ORATORYCLIA [id number] [address] Maximum clot firmness after addition of heparinase TEG (Bld) [Length] 64.0 mm Normal 51.0-75.0 [facility] Comment on above: Order Comment: Speci men Type: BLOOD SPECIMEN Performed By: #### T EGHPP ####[facility] LABORATORYCLIA [id number] [address] Vancomycin random [Mass/Vol] on 06-06-2021 Vancomycin [Mass/Vol] 17.4 ug/mL Normal 10.0-20.0 [facility] Comment on above: Order Comment: Speci men Type: BLOOD SPECIMEN Result Comment: Refe rence ranges and high/low indicator flags are provided as general guidelines only. The treating physician must determine appropriate target levels/dosing based on the specific clinical situation. Performed By: #### 4 091-5 ####[facility] LABORATORYCLIA [id number] [address] STATES OF [facility] Vancomycin [Mass/Vol] 13.5 ug/mL Normal 10.0-20.0 [facility] Comment on above: Order Comment: Speci men Type: BLOOD SPECIMEN Result Comment: Refe rence ranges and high/low indicator flags are provided as general guidelines only. The treating physician must determine appropriate target levels/dosing based on the specific clinical situation. Performed By: #### 4 091-5 ####[facility] LABORATORYCLIA [id number] [address] aPTT PPPon 06-06-2021 aPTT Coag (PPP) [Time] 27.8 s Normal 23.0-32.4 [facility] Comment on above: Order Comment: Speci men Type: BLOOD SPECIMEN Performed By: #### 3 4528-0, 16397-7 ####[facility]ORYCLIA [id number] [address] STATES OF [facility] Basic metabolic 2000 panelon 06-05-2021 Anion gap [Moles/Vol] 11 mmol/L Normal 9-18 [facility] Comment on above: Order Comment: Speci men Type: BLOOD SPECIMEN Performed By: #### 1 9123-9, 88382-4, 2776- ####[facility]ATORYCLIA [id number] [address] STATES OF [facility] Calcium [Mass/Vol] 8.6 mg/dL Normal 8.5-10.2 [facility] Comment on above: Order Comment: Speci men Type: BLOOD SPECIMEN Performed By: #### 1 9123-9, 53474-2, 2776- ####[facility]ATORYCLIA [id number] [address] STATES OF [facility] Chloride [Moles/Vol] 108 mmol/L High 97-105 [facility] Comment on above: Order Comment: Speci men Type: BLOOD SPECIMEN Performed By: #### 1 9123-9, 99329-1, 2776- ####[facility]ORYCLIA [id number] [address] STATES [place] CO2 [Moles/Vol] 25 mmol/L Normal 22-30 [facility] Comment on above: Order Comment: Speci men Type: BLOOD SPECIMEN Performed By: #### 1 9123-9, 35881-9, 2776- ####[facility]ATORYCLIA [id number] [address] [place] Creatinine [Mass/Vol] 0.77 mg/dL Normal 0.73-1.22 [facility] Comment on above: Order Comment: Speci men Type: BLOOD SPECIMEN Performed By: #### 1 9123-9, 55436-5, 2776-05 ####[facility] HOSPITALIA [id number] [place] [address] [place] GFR/1.73 sq M.predicted MDRD (S/P/Bld) [Vol rate/Area] mL/min/{1.73_m2} Normal [facility] Comment on above: Order [...] actual GFR. Performed By: #### 1 9123-9, 30295-0, 2776-05 ####[facility] HOSPITALIA [id number] [place] [address] [place] Glucose [Mass/Vol] 96 mg/dL Normal 74-99 [facility] Comment on above: Order Comment: Speci men Type: BLOOD SPECIMEN Result Comment: The [place] Diabetes [employer] (ADA) provides guidance for cutoff [...] Standards of Medical Care in Diabetes 2016, [place] [employer]. Diabetes Care. 2016.39(Suppl 1). Performed By: #### 1 9123-9, 60928-1, 2776-05 ####[facility] LABORATORYCLIA [id number] [address] STATES OF [facility] Potassium [Moles/Vol] 3.9 mmol/L Normal 3.7-5.1 [facility] Comment on above: Order Comment: Speci men Type: BLOOD SPECIMEN Performed By: #### 1 9123-9, 84675-1, 2777-1 ####[facility] LABORATORYCLIA [id number] [address] Sodium [Moles/Vol] 144 mmol/L Normal 136-144 [facility] Comment on above: Order Comment: Speci men Type: BLOOD SPECIMEN Performed By: #### 1 9123-9, 39102-1, 2777-1 ####[facility] LABORATORYCLIA [id number] [address] Urea nitrogen [Mass/Vol] 26 mg/dL High 9-24 [facility] Comment on above: Order Comment: Speci men Type: BLOOD SPECIMEN Performed By: #### 1 9123-9, 58233-2, 2776- ####[facility]ORATORYCLIA [id number] [address] CBC panel Auto (Bld)on 06-05 Erythrocyte distribution width (RBC) [Ratio] 15.9 % High 11.5-15.0 [facility] Comment on above: Order Comment: Speci men Type: BLOOD SPECIMEN Performed By: #### 5 8410-2 ####[facility]ORATORYCLIA [id number] [address] Hematocrit (Bld) [Volume fraction] 39.6 % Normal 39.0-51.0 [facility] Comment on above: Order Comment: Speci men Type: BLOOD SPECIMEN Performed By: #### 5 8410-2 ####[facility] LABORATORYCLIA [id number] [address] OF [facility] Hemoglobin (Bld) [Mass/Vol] 12.3 g/dL Low 13.0-17.0 [facility] Comment on above: Order Comment: Speci men Type: BLOOD SPECIMEN Performed By: #### 5 8410-2 ####[facility]ORATORYCLIA [id number] [address] MCH (RBC) [Entitic mass] 28.1 pg Normal 26.0-34.0 [facility] Comment on above: Order Comment: Speci men Type: BLOOD SPECIMEN Performed By: #### 5 8410-2 ####[facility]ORATORYCLIA [id number] [address] MCHC (RBC) [Mass/Vol] 31.1 g/dL Normal 30.5-36.0 [facility] Comment on above: Order Comment: Speci men Type: BLOOD SPECIMEN Performed By: #### 5 8410-2 ####[facility]ORATORYCLIA [id number] [address] MCV (RBC) [Entitic vol] 90.4 fL Normal 80.0-100.0 [facility] Comment on above: Order Comment: Speci men Type: BLOOD SPECIMEN Performed By: #### 5 8410-2 ####[facility]ORATORYCLIA [id number] [address] Nucleated RBC (Bld) [#/Vol] 10*3/uL Normal <0.01 [facility] Comment on above: Order Comment: Speci men Type: BLOOD SPECIMEN Performed By: #### 5 8410-2 ####[facility]ORATORYCLIA [id number] [address] Platelet mean volume (Bld) [Entitic vol] 10.5 fL Normal 9.0-12.7 [facility] Comment on above: Order Comment: Speci men Type: BLOOD SPECIMEN Performed By: #### 5 8410-2 ####[facility]ORATORYCLIA [id number] [address] Platelets (Bld) [#/Vol] 224 10*3/uL Normal 150-400 [facility] Comment on above: Order Comment: Speci men Type: BLOOD SPECIMEN Performed By: #### 5 8410-2 ####[facility] LABORATORYCLIA [id number] [address] OF [facility] RBC (Bld) [#/Vol] 4.38 10*6/uL Normal 4.20-6.00 [facility] Comment on above: Order Comment: Speci men Type: BLOOD SPECIMEN Performed By: #### 5 8410-2 ####[facility]ORATORYCLIA [id number] [address] WBC (Bld) [#/Vol] 9.66 10*3/uL Normal 3.70-11.00 [facility] Comment on above: Order Comment: Speci men Type: BLOOD SPECIMEN Performed By: #### 5 8410-2 ####[facility] LABORATORYCLIA [id number] [address] CONSULT PROGon 06-05-2021 CONSULT PROG Normal [facility] Gas and Carbon monoxide pane l (BldV)on 06-05-2021 Base excess Calc (BldV) [Moles/Vol] 1.8 mmol/L Normal 0-2 [facility] Comment on above: Order Comment: Speci men Type: VENOUS BLOOD SPECIMEN Performed By: #### 2 4344-4 ####[facility]ORATORYCLIA [id number] [address] Body temperature 100.4 [degF] Normal [facility] Comment on above: Order Comment: Speci men Type: VENOUS BLOOD SPECIMEN Performed By: #### 2 4344-4 ####[facility]ORATORYCLIA [id number] [address] CALCIUM IONIZED, PH CORRECTED 1.21 mmol/L Normal 1.08-1.30 [facility] Comment on above: Order Comment: Speci men Type: VENOUS BLOOD SPECIMEN Performed By: #### 2 4344-4 ####[facility]ORATORYCLIA [id number] [address] Calcium.ionized (BldV) [Mass/Vol] 1.19 mmol/L Normal 1.08-1.30 [facility] Comment on above: Order Comment: Speci men Type: VENOUS BLOOD SPECIMEN Performed By: #### 2 4344-4 ####[facility]ORATORYCLIA [id number] [address] Carboxyhemoglobin (BldV) [Mass fraction] 1.0 % Normal 0.0-2.0 [facility] Comment on above: Order Comment: Speci men Type: VENOUS BLOOD SPECIMEN Result Comment: Carb oxyhemoglobin Reference Range for Smokers: 2.0-8.0% Performed By: #### 2 4344-4 ####[facility]ORATORYCLIA [id number] [address] CO2 (BldV) [Partial pressure] 41 mm[Hg] Low 42-55 [facility] Comment on above: Order Comment: Speci men Type: VENOUS BLOOD SPECIMEN Performed By: #### 2 4344-4 ####[facility]ORATORYCLIA [id number] [address] CO2 [Moles/Vol] 23.4 mmol/L Low 25-29 [facility] Comment on above: Order Comment: Speci men Type: VENOUS BLOOD SPECIMEN Performed By: #### 2 4344-4 ####[facility]ORATORYCLIA [id number] [address] CO2 adjusted to patient's actual temperature (BldV) [Partial pressure] 43 mmHg Normal 42-55 [facility] Comment on above: Order Comment: Speci men Type: VENOUS BLOOD SPECIMEN Performed By: #### 2 4344-4 ####[facility]ORATORYCLIA [id number] [address] Glucose [Mass/Vol] 101 mg/dL Normal 60-105 [facility] Comment on above: Order Comment: Speci men Type: VENOUS BLOOD SPECIMEN Performed By: #### 2 4344-4 ####[facility]ATORYCLIA [id number] [address] [facility] HCO3 (Bld) [Moles/Vol] 26.0 mmol/L Normal 24-28 [facility] Comment on above: Order Comment: Speci men Type: VENOUS BLOOD SPECIMEN Performed By: #### 2 4344-4 ####[facility]ATORYCLIA [id number] [place], [place] [address] [place] [address] OF [facility] Hematocrit (Bld) [Volume fraction] 38.4 % Low 39.0-51.0 [facility] Comment on above: Order Comment: Speci men Type: VENOUS BLOOD SPECIMEN Performed By: #### 2 4344-4 ####[facility]ORYCLIA [id number] [address] Hemoglobin (Bld) [Mass/Vol] 12.5 g/dL Low 13.0-17.0 [facility] Comment on above: Order Comment: Speci men Type: VENOUS BLOOD SPECIMEN Performed By: #### 2 4344-4 ####[facility]ORYCLIA [id number] [address] Methemoglobin (Bld) [Mass fraction] % Normal 0.0-1.5 [facility] Comment on above: Order Comment: Speci men Type: VENOUS BLOOD SPECIMEN Performed By: #### 2 4344-4 ####[facility]ATORYCLIA [id number] [address] OF [place] O2 THERAPY Ventilator Normal [facility] Comment on above: Order Comment: Speci men Type: VENOUS BLOOD SPECIMEN Performed By: #### 2 4344-4 ####[facility]ORATORYCLIA [id number] [place], [place] [id number] [place] [address] Oxygen (BldV) [Partial pressure] 44 mm[Hg] Normal 35-45 [facility] Comment on above: Order Comment: Speci men Type: VENOUS BLOOD SPECIMEN Performed By: #### 2 4344-4 ####[facility]ORYCLIA [id number] [address] Oxygen adjusted to patient's actual temperature (BldV) [Partial pressure] 46.8 mmHg High 35-45 [facility] Comment on above: Order Comment: Speci men Type: VENOUS BLOOD SPECIMEN Performed By: #### 2 4344-4 ####[facility]ORYCLIA [id number] [address] Oxygen saturation in Blood 76.5 % Normal 60-85 [facility] Comment on above: Order Comment: Speci men Type: VENOUS BLOOD SPECIMEN Performed By: #### 2 4344-4 ####[facility]ORYCLIA [id number] [address] Oxyhemoglobin (BldV) [Mass fraction] 75 % Normal 60-85 [facility] Comment on above: Order Comment: Speci men Type: VENOUS BLOOD SPECIMEN Performed By: #### 2 4344-4 ####[facility]ORYCLIA [id number] [address] OF [facility] pH (BldV) 7.42 [pH] Normal 7.32-7.42 [facility] Comment on above: Order Comment: Speci men Type: VENOUS BLOOD SPECIMEN Performed By: #### 2 4344-4 ####[facility]ORYCLIA [id number] [address] pH adjusted to patient's actual temperature (BldV) 7.40 Normal 7.32-7.42 [facility] Comment on above: Order Comment: Speci men Type: VENOUS BLOOD SPECIMEN Performed By: #### 2 4344-4 ####[facility]ORYCLIA [id number] [address] [place] Potassium [Moles/Vol] 3.7 mmol/L Normal 3.5-5.0 [facility] Comment on above: Order Comment: Speci men Type: VENOUS BLOOD SPECIMEN Performed By: #### 2 4344-4 ####[facility]ORYCLIA [id number] [address] [place] Sodium [Moles/Vol] 141 mmol/L Normal 136-144 [facility] Comment on above: Order Comment: Speci men Type: VENOUS BLOOD SPECIMEN Performed By: #### 2 4344-4 ####[facility]ORATORYCLIA [id number] [address] [place] Magnesium SerPl-mCncon 06-05 Magnesium [Mass/Vol] 2.3 mg/dL Normal 1.7-2.3 [facility] Comment on above: Order Comment: Speci men Type: BLOOD SPECIMEN Performed By: #### 1 9123-9, 35930-1, 2777-1 ####[facility]ORYCLIA [id number] [address] [place] Phosphate SerPl-mCncon 06-05 Phosphate [Mass/Vol] 2.9 mg/dL Normal 2.7-4.8 [facility] Comment on above: Order Comment: Speci men Type: BLOOD SPECIMEN Performed By: #### 1 9123-9, 79568-5, 2777-1 ####[facility]ORATORYCLIA [id number] [address] STATES OF [facility] Vancomycin random [Mass/Vol] on 06-05-2021 Vancomycin [Mass/Vol] 23.2 ug/mL High 10.0-20.0 [facility] Comment on above: Order Comment: Speci men Type: BLOOD SPECIMEN Result Comment: Refe rence ranges and high/low indicator flags are provided as general guidelines only. The treating physician must determine appropriate target levels/dosing based on the specific clinical situation. Performed By: #### 4 091-5 ####[facility]ORATORYCLIA [id number] [place] [id number] [place] (1,3)-C-O-VWKFCPhx 2 (1,3) B-D GLUCAN <31 Normal <60 [facility] Comment on above: Order Comment: Speci men Type: BLOOD SPECIMEN Performed By: #### B DGLUC ####[facility] LABCLIA [id number] [place] [id number] [address] [place] (1,3) B-D GLUCAN, QUAL Negative Normal NEGAT [facility] Comment on above: Order Comment: Speci men Type: BLOOD SPECIMEN Result Comment: Cert ain fungi, such as the genus Cryptococcus which produces very low levels of (1,3)-znph-U-uoorov, may not result in serum (1,3)-kiwq-L-iqivbs sufficiently elevated so as to be detected by the assay. Infections with fungi of the order Mucorales such as Absidia, Mucor and Rhizopus which are not known to produce (1,3)-iewh-R-dxklft, are also observed to yield low serum (1,3)-zfij-U-ibhvdh titers.In addition, the yeast phase of Blastomyces dermatitidis produces little (1,3)-zcfr-Z-iudfyw and may not be detected by the assay. Performed By: #### B DGLUC ####[facility] LABCLIA [id number] [facility] [id number] [address] [place] ALLIED HEALTHon 06-04-2021 ALLIED HEALTH Normal [facility] ALLIED HEALTH Normal [facility] ARTERIAL BLOOD GASESon 06-04 Base excess Calc (Bld) [Moles/Vol] 3 mmol/L High 0-2 [facility] Comment on above: Order Comment: Speci men Type: ARTERIAL BLOOD SPECIMEN Performed By: #### A LLBG ####[facility]ATORYCLIA [id number] [address] [place] Body temperature 98.06 [degF] Normal [facility] Comment on above: Order Comment: Speci men Type: ARTERIAL BLOOD SPECIMEN Performed By: #### A LLBG ####[facility]ATORYCLIA [id number] [address] [place] CALCIUM IONIZED, PH CORRECTED 1.19 mmol/L Normal 1.08-1.30 [facility] Comment on above: Order Comment: Speci men Type: ARTERIAL BLOOD SPECIMEN Performed By: #### A LLBG ####[facility]ORATORYCLIA [id number] [place] [address] [place] Calcium.ionized (BldV) [Mass/Vol] 1.14 mmol/L Normal 1.08-1.30 [facility] Comment on above: Order Comment: Speci men Type: ARTERIAL BLOOD SPECIMEN Performed By: #### A LLBG ####[facility]ORYCLIA [id number] [address] OF [facility] Carboxyhemoglobin (BldA) [Mass fraction] 1.2 % Normal 0.0-2.0 [facility] Comment on above: Order Comment: Speci men Type: ARTERIAL BLOOD SPECIMEN Result Comment: Carb oxyhemoglobin Reference Range for Smokers: 2.0-8.0% Performed By: #### A LLBG ####[facility]ORYCLIA [id number] [address] CO2 (Bld) [Partial pressure] 35 mm Hg Low 36-46 [facility] Comment on above: Order Comment: Speci men Type: ARTERIAL BLOOD SPECIMEN Performed By: #### A LLBG ####[facility]ORYCLIA [id number] [address] [place] CO2 [Moles/Vol] 23.2 mmol/L Normal 22-28 [facility] Comment on above: Order Comment: Speci men Type: ARTERIAL BLOOD SPECIMEN Performed By: #### A LLBG ####[facility]ORYCLIA [id number] [address] CO2 adjusted to patient's actual temperature (Bld) [Partial pressure] 34 mmHg Low 36-46 [facility] Comment on above: Order Comment: Speci men Type: ARTERIAL BLOOD SPECIMEN Performed By: #### A LLBG ####[facility]ORYCLIA [id number] [address] [place] Glucose [Mass/Vol] 115 mg/dL High 60-105 [facility] Comment on above: Order Comment: Speci men Type: ARTERIAL BLOOD SPECIMEN Performed By: #### A LLBG ####[facility]ORYCLIA [id number] [address] [place] HCO3 (Bld) [Moles/Vol] 26 mmol/L Normal 22-26 [facility] Comment on above: Order Comment: Speci men Type: ARTERIAL BLOOD SPECIMEN Performed By: #### A LLBG ####[facility]ORYCLIA [id number] [address] Hematocrit (Bld) [Volume fraction] 35.3 % Low 39.0-51.0 [facility] Comment on above: Order Comment: Speci men Type: ARTERIAL BLOOD SPECIMEN Performed By: #### A LLBG ####[facility]ORYCLIA [id number] [address] OF [facility] Hemoglobin (Bld) [Mass/Vol] 11.5 g/dL Low 13.0-17.0 [facility] Comment on above: Order Comment: Speci men Type: ARTERIAL BLOOD SPECIMEN Performed By: #### A LLBG ####[facility]ORYCLIA [id number] [address] Methemoglobin (Bld) [Mass fraction] % Normal 0.0-1.5 [facility] Comment on above: Order Comment: Speci men Type: ARTERIAL BLOOD SPECIMEN Performed By: #### A LLBG ####[facility]ORYCLIA [id number] [address] O2 THERAPY Ventilator Normal [facility] Comment on above: Order Comment: Speci men Type: ARTERIAL BLOOD SPECIMEN Performed By: #### A LLBG ####[facility]ORYCLIA [id number] [address] Oxygen (Bld) [Partial pressure] 66 mm Hg Low 85-95 [facility] Comment on above: Order Comment: Speci men Type: ARTERIAL BLOOD SPECIMEN Performed By: #### A LLBG ####[facility]ORYCLIA [id number] [address] Oxygen adjusted to patient's actual temperature (Bld) [Partial pressure] 64.3 mmHg Low 85-95 [facility] Comment on above: Order Comment: Speci men Type: ARTERIAL BLOOD SPECIMEN Performed By: #### A LLBG ####[facility] LABORATORYCLIA [id number] [address] OXYGEN SATURATION, ARTERIAL 95 % Normal 95-98 [facility] Comment on above: Order Comment: Speci men Type: ARTERIAL BLOOD SPECIMEN Performed By: #### A LLBG ####[facility]ORATORYCLIA [id number] [address] Oxyhemoglobin (BldA) [Mass fraction] 93 % Low 95-98 [facility] Comment on above: Order Comment: Speci men Type: ARTERIAL BLOOD SPECIMEN Performed By: #### A LLBG ####[facility]ATORYCLIA [id number] [address] pH (Bld) 7.49 [pH] High 7.35-7.45 [facility] Comment on above: Order Comment: Speci men Type: ARTERIAL BLOOD SPECIMEN Performed By: #### A LLBG ####[facility]ATORYCLIA [id number] [address] pH adjusted to patient's actual temperature (Bld) 7.49 High 7.35-7.45 [facility] Comment on above: Order Comment: Speci men Type: ARTERIAL BLOOD SPECIMEN Performed By: #### A LLBG ####[facility]ATORYCLIA [id number] [address] Potassium [Moles/Vol] 2.8 mmol/L Low 3.5-5.0 [facility] Comment on above: Order Comment: Speci men Type: ARTERIAL BLOOD SPECIMEN Performed By: #### A LLBG ####[facility] [id number] [address] Bas Metab 2000 Pnl SerPlon 0 06-04-2021 Sodium [Moles/Vol] 143 mmol/L Normal 136-144 [facility] Comment on above: Order Comment: Speci men Type: BLOOD SPECIMEN Performed By: #### 2 777-1, 99288-0, ####[facility]ATORYCLIA [id number] [place], [place] [id number] [place] [address] Order Comment: Speci men Type: ARTERIAL BLOOD SPECIMEN Performed By: #### A LLBG ####[facility]ATORYCLIA [id number] [place] [address] [facility] Basic metabolic 2000 panelon 06-04-2021 Anion gap [Moles/Vol] 11 mmol/L Normal 9-18 [facility] Comment on above: Order Comment: Speci men Type: BLOOD SPECIMEN Performed By: #### 2 777-1, , ####[facility]ORYCLIA [id number] [address] [place] [facility] Calcium [Mass/Vol] 8.5 mg/dL Normal 8.5-10.2 [facility] Comment on above: Order Comment: Speci men Type: BLOOD SPECIMEN Performed By: #### 2 777-1, , ####[facility]ORYCLIA [id number] [address] [place] Chloride [Moles/Vol] 107 mmol/L High 97-105 [facility] Comment on above: Order Comment: Speci men Type: BLOOD SPECIMEN Performed By: #### 2 777-1, , ####[facility]ORYCLIA [id number] [place], [place] [address] [place] [address] [place] CO2 [Moles/Vol] 25 mmol/L Normal 22-30 [facility] Comment on above: Order Comment: Speci men Type: BLOOD SPECIMEN Performed By: #### 2 777-1, , ####[facility]ORYCLIA [id number] [place], [place] [address] [place] [address] [place] Creatinine [Mass/Vol] 0.77 mg/dL Normal 0.73-1.22 [facility] Comment on above: Order Comment: Speci men Type: BLOOD SPECIMEN Performed By: #### 2 777-1, , 36031-9 ####[facility] HOSPITALIA [id number] [place] [address] [place] GFR/1.73 sq M.predicted MDRD (S/P/Bld) [Vol rate/Area] mL/min/{1.73_m2} Normal [facility] Comment on above: Order [...] actual GFR. Performed By: #### 2 777-1, 03724-3, 76855-9 ####[facility] HOSPITALIA [id number] [place] [id number] [place] Glucose [Mass/Vol] 107 mg/dL High 74-99 [facility] Comment on above: Order Comment: Speci men Type: BLOOD SPECIMEN Result Comment: The [place] Diabetes [employer] (ADA) provides guidance for cutoff [...] Standards of Medical Care in Diabetes 2016, [place] [employer]. Diabetes Care. 2016.39(Suppl 1). Performed By: #### 2 777-1, 79734-7, 19621-8 ####[facility] HOSPITALIA [id number] [address] Potassium [Moles/Vol] 3.1 mmol/L Low 3.7-5.1 [facility] Comment on above: Order Comment: Speci men Type: BLOOD SPECIMEN Performed By: #### 2 777-1, , 62669-2 ####[facility]ORATORYCLIA [id number] [address] Urea nitrogen [Mass/Vol] 19 mg/dL Normal 9-24 [facility] Comment on above: Order Comment: Speci men Type: BLOOD SPECIMEN Performed By: #### 2 777-1, , 20768-1 ####[facility]ORATORYCLIA [id number] [address] CBC panel Auto (Bld)on 06-04 Erythrocyte distribution width (RBC) [Ratio] 15.8 % High 11.5-15.0 [facility] Comment on above: Order Comment: Speci men Type: BLOOD SPECIMEN Performed By: #### 5 8410-2 ####[facility]ATORYCLIA [id number] [address] Hematocrit (Bld) [Volume fraction] 36.9 % Low 39.0-51.0 [facility] Comment on above: Order Comment: Speci men Type: BLOOD SPECIMEN Performed By: #### 5 8410-2 ####[facility]ATORYCLIA [id number] [address] Hemoglobin (Bld) [Mass/Vol] 11.2 g/dL Low 13.0-17.0 [facility] Comment on above: Order Comment: Speci men Type: BLOOD SPECIMEN Performed By: #### 5 8410-2 ####[facility]ATORYCLIA [id number] [address] MCH (RBC) [Entitic mass] 27.3 pg Normal 26.0-34.0 [facility] Comment on above: Order Comment: Speci men Type: BLOOD SPECIMEN Performed By: #### 5 8410-2 ####[facility]ATORYCLIA [id number] [address] MCHC (RBC) [Mass/Vol] 30.4 g/dL Low 30.5-36.0 [facility] Comment on above: Order Comment: Speci men Type: BLOOD SPECIMEN Performed By: #### 5 8410-2 ####[facility]ATORYCLIA [id number] [address] MCV (RBC) [Entitic vol] 89.8 fL Normal 80.0-100.0 [facility] Comment on above: Order Comment: Speci men Type: BLOOD SPECIMEN Performed By: #### 5 8410-2 ####[facility]ATORYCLIA [id number] [address] Nucleated RBC (Bld) [#/Vol] 10*3/uL Normal <0.01 [facility] Comment on above: Order Comment: Speci men Type: BLOOD SPECIMEN Performed By: #### 5 8410-2 ####[facility]ATORYCLIA [id number] [address] Platelet mean volume (Bld) [Entitic vol] 10.7 fL Normal 9.0-12.7 [facility] Comment on above: Order Comment: Speci men Type: BLOOD SPECIMEN Performed By: #### 5 8410-2 ####[facility]ATORYCLIA [id number] [address] Platelets (Bld) [#/Vol] 174 10*3/uL Normal 150-400 [facility] Comment on above: Order Comment: Speci men Type: BLOOD SPECIMEN Performed By: #### 5 8410-2 ####[facility]ATORYCLIA [id number] [address] RBC (Bld) [#/Vol] 4.11 10*6/uL Low 4.20-6.00 [facility] Comment on above: Order Comment: Speci men Type: BLOOD SPECIMEN Performed By: #### 5 8410-2 ####[facility]ATORYCLIA [id number] [address] WBC (Bld) [#/Vol] 8.29 10*3/uL Normal 3.70-11.00 [facility] Comment on above: Order Comment: Speci men Type: BLOOD SPECIMEN Performed By: #### 5 8410-2 ####[facility]ATORYCLIA [id number] [address] CONSULT PROGon 06-04-2021 CONSULT PROG Normal [facility] CT BRAIN WO IVCONon 06-04-19 CT BRAIN WO IVCON Normal [facility] CT CHEST W IVCON PEon 2021 CT CHEST W IVCON PE Normal [facility] Magnesium SerPl-mCncon 06-04 Magnesium [Mass/Vol] 2.2 mg/dL Normal 1.7-2.3 [facility] Comment on above: Order Comment: Speci men Type: BLOOD SPECIMEN Performed By: #### 2 777-1, 70796-1, 47969-2 ####[facility]ATORYCLIA [id number] [address] NT-proBNP SerPl-mCncon 06-04 Natriuretic peptide.B prohormone N-Terminal [Mass/Vol] 229 pg/mL High <125 [facility] Comment on above: Order Comment: Speci men Type: BLOOD SPECIMEN Performed By: #### 3 3762-6, 4091-5 ####[facility]ATORYCLIA [id number] [address] Phosphate SerPl-mCncon 06-04 Phosphate [Mass/Vol] 2.0 mg/dL Low 2.7-4.8 [facility] Comment on above: Order Comment: Speci men Type: BLOOD SPECIMEN Performed By: #### 2 777-1, 89086-1, 58814-0 ####[facility]ATORYCLIA [id number] [address] Vancomycin random [Mass/Vol] on 06-04-2021 Vancomycin [Mass/Vol] 35.2 ug/mL High 10.0-20.0 [facility] Comment on above: Order Comment: Speci men Type: BLOOD SPECIMEN Result Comment: Refe rence ranges and high/low indicator flags are provided as general guidelines only. The treating physician must determine appropriate target levels/dosing based on the specific clinical situation. Performed By: #### 3 3762-6, 4091-5 ####[facility]ORATORYCLIA [id number] [address] XR ABDOMEN 1V SUPINEon 06-04 XR ABDOMEN 1V SUPINE Normal [facility] ALLIED HEALTHon 06-03-2021 ALLIED HEALTH Normal [facility] ARTERIAL BLOOD GASESon 06-03 Base excess Calc (Bld) [Moles/Vol] 5 mmol/L High 0-2 [facility] Comment on above: Order Comment: Speci men Type: ARTERIAL BLOOD SPECIMEN Performed By: #### A LLBG ####[facility]ATORYCLIA [id number] [address] Body temperature 99.5 [degF] Normal [facility] Comment on above: Order Comment: Speci men Type: ARTERIAL BLOOD SPECIMEN Performed By: #### A LLBG ####[facility]ATORYCLIA [id number] [address] CALCIUM IONIZED, PH CORRECTED 1.18 mmol/L Normal 1.08-1.30 [facility] Comment on above: Order Comment: Speci men Type: ARTERIAL BLOOD SPECIMEN Performed By: #### A LLBG ####[facility]ORYCLIA [id number] [address] Calcium.ionized (BldV) [Mass/Vol] 1.16 mmol/L Normal 1.08-1.30 [facility] Comment on above: Order Comment: Speci men Type: ARTERIAL BLOOD SPECIMEN Performed By: #### A LLBG ####[facility]ORYCLIA [id number] [address] Carboxyhemoglobin (BldA) [Mass fraction] 1.2 % Normal 0.0-2.0 [facility] Comment on above: Order Comment: Speci men Type: ARTERIAL BLOOD SPECIMEN Result Comment: Carb oxyhemoglobin Reference Range for Smokers: 2.0-8.0% Performed By: #### A LLBG ####[facility]ORYCLIA [id number] [address] CO2 (Bld) [Partial pressure] 45 mm Hg Normal 36-46 [facility] Comment on above: Order Comment: Speci men Type: ARTERIAL BLOOD SPECIMEN Performed By: #### A LLBG ####[facility]ATORYCLIA [id number] [address] CO2 [Moles/Vol] 26.9 mmol/L Normal 22-28 [facility] Comment on above: Order Comment: Speci men Type: ARTERIAL BLOOD SPECIMEN Performed By: #### A LLBG ####[facility]ATORYCLIA [id number] [address] CO2 adjusted to patient's actual temperature (Bld) [Partial pressure] 47 mmHg High 36-46 [facility] Comment on above: Order Comment: Speci men Type: ARTERIAL BLOOD SPECIMEN Performed By: #### A LLBG ####[facility]ATORYCLIA [id number] [address] Glucose [Mass/Vol] 141 mg/dL High 60-105 [facility] Comment on above: Order Comment: Speci men Type: ARTERIAL BLOOD SPECIMEN Performed By: #### A LLBG ####[facility]ORYCLIA [id number] [address] HCO3 (Bld) [Moles/Vol] 30 mmol/L High 22-26 [facility] Comment on above: Order Comment: Speci men Type: ARTERIAL BLOOD SPECIMEN Performed By: #### A LLBG ####[facility]ORYCLIA [id number] [address] Hematocrit (Bld) [Volume fraction] 35.8 % Low 39.0-51.0 [facility] Comment on above: Order Comment: Speci men Type: ARTERIAL BLOOD SPECIMEN Performed By: #### A LLBG ####[facility]CLIA [id number] [address] Hemoglobin (Bld) [Mass/Vol] 11.6 g/dL Low 13.0-17.0 [facility] Comment on above: Order Comment: Speci men Type: ARTERIAL BLOOD SPECIMEN Performed By: #### A LLBG ####[facility]ORYCLIA [id number] [address] Methemoglobin (Bld) [Mass fraction] % Normal 0.0-1.5 [facility] Comment on above: Order Comment: Speci men Type: ARTERIAL BLOOD SPECIMEN Performed By: #### A LLBG ####[facility]CLIA [id number] [address] O2 THERAPY Ventilator Normal [facility] Comment on above: Order Comment: Speci men Type: ARTERIAL BLOOD SPECIMEN Performed By: #### A LLBG ####[facility]ORYCLIA [id number] [address] OF [facility] Oxygen (Bld) [Partial pressure] 69 mm Hg Low 85-95 [facility] Comment on above: Order Comment: Speci men Type: ARTERIAL BLOOD SPECIMEN Performed By: #### A LLBG ####[facility]ORYCLIA [id number] [address] [place] Oxygen adjusted to patient's actual temperature (Bld) [Partial pressure] 70.8 mmHg Low 85-95 [facility] Comment on above: Order Comment: Speci men Type: ARTERIAL BLOOD SPECIMEN Performed By: #### A LLBG ####[facility]ORYCLIA [id number] [address] OF [place] OXYGEN SATURATION, ARTERIAL 94 % Low 95-98 [facility] Comment on above: Order Comment: Speci men Type: ARTERIAL BLOOD SPECIMEN Performed By: #### A LLBG ####[facility]ORYCLIA [id number] [address] Oxyhemoglobin (BldA) [Mass fraction] 93 % Low 95-98 [facility] Comment on above: Order Comment: Speci men Type: ARTERIAL BLOOD SPECIMEN Performed By: #### A LLBG ####[facility]ATORYCLIA [id number] [address] OF [place] pH (Bld) 7.43 [pH] Normal 7.35-7.45 [facility] Comment on above: Order Comment: Speci men Type: ARTERIAL BLOOD SPECIMEN Performed By: #### A LLBG ####[facility]ORYCLIA [id number] [address] pH adjusted to patient's actual temperature (Bld) 7.43 Normal 7.35-7.45 [facility] Comment on above: Order Comment: Speci men Type: ARTERIAL BLOOD SPECIMEN Performed By: #### A LLBG ####[facility]ATORYCLIA [id number] [address] OF [facility] Potassium [Moles/Vol] 3.1 mmol/L Low 3.5-5.0 [facility] Comment on above: Order Comment: Speci men Type: ARTERIAL BLOOD SPECIMEN Performed By: #### A LLBG ####[facility]ORYCLIA [id number] [address] OF [facility] Sodium [Moles/Vol] 145 mmol/L High 136-144 [facility] Comment on above: Order Comment: Speci men Type: ARTERIAL BLOOD SPECIMEN Performed By: #### A LLBG ####[facility]ATORYCLIA [id number] [address] OF [facility] ASPERGILLUS GALACTOMANNAN SE RUMon 06-03-2021 Galactomannan Ag IA Ql Negative Normal NEGAT [facility] Comment on above: Order Comment: [...] is suspected. Performed By: #### A MIMI ####[facility] LABCLIA [id number] [place] [facility] [address] [address] [place] Galactomannan Ag IA Qn <0.50 Normal [facility] Comment on above: Order Comment: Speci men Type: BLOOD SPECIMEN Result Comment: Inde x Values are Interpreted as Follows:Negative specimens <0.50Positive specimens >=0.50 Performed By: #### A SGAKATHRYN ####[facility] LABCLIA [id number] [place] [facility] [address] [address] [place] Basic metabolic 2000 panelon 06-03-2021 Anion gap [Moles/Vol] 8 mmol/L Low 9-18 [facility] Comment on above: Order Comment: Speci men Type: BLOOD SPECIMEN Performed By: #### 1 9123-9, 2777-1, 47414-1 ####[facility]ATORYCLIA [id number] [place] [address] [place] Calcium [Mass/Vol] 8.0 mg/dL Low 8.5-10.2 [facility] Comment on above: Order Comment: Speci men Type: BLOOD SPECIMEN Performed By: #### 1 9123-9, 2777-1, 12732-8 ####[facility]ATORYCLIA [id number] [place] [address] [place] Chloride [Moles/Vol] 110 mmol/L High 97-105 [facility] Comment on above: Order Comment: Speci men Type: BLOOD SPECIMEN Performed By: #### 1 9123-9, 2777-1, 66045-1 ####[facility]ORYCLIA [id number] [place] [address] [place] CO2 [Moles/Vol] 28 mmol/L Normal 22-30 [facility] Comment on above: Order Comment: Speci men Type: BLOOD SPECIMEN Performed By: #### 1 9123-9, 2777-1, 78796-6 ####[facility]ATORYCLIA [id number] [place] [address] [place] Creatinine [Mass/Vol] 0.75 mg/dL Normal 0.73-1.22 [facility] Comment on above: Order Comment: Speci men Type: BLOOD SPECIMEN Performed By: #### 1 9123-9, 2777-, 32498-8 ####[facility]ATORYCLIA [id number] [place] [address] [place] GFR/1.73 sq M.predicted MDRD (S/P/Bld) [Vol rate/Area] mL/min/{1.73_m2} Normal [facility] Comment on above: Order [...] GFR. Performed By: #### 1 9123-9, 2777-, 28570-5 ####[facility]ATORYCLIA [id number] [place] [address] [place] Glucose [Mass/Vol] 141 mg/dL High 74-99 [facility] Comment on above: Order Comment: [facility] Type: BLOOD SPECIMEN Result Comment: The [place] Diabetes [employer] (ADA) provides guidance for cutoff [...] Standards of Medical Care in Diabetes 2016, [place] [employer]. Diabetes Care. 2016.39(Suppl 1). Performed By: #### 1 9123-9, 2777-1, 07424-1 ####[facility]ATORYCLIA [id number] [address] Potassium [Moles/Vol] 3.3 mmol/L Low 3.7-5.1 [facility] Comment on above: Order Comment: Speci men Type: BLOOD SPECIMEN Performed By: #### 1 9123-9, 27711-04, 03699-4 ####[facility]ORYCLIA [id number] [address] Sodium [Moles/Vol] 146 mmol/L High 136-144 [facility] Comment on above: Order Comment: Speci men Type: BLOOD SPECIMEN Performed By: #### 1 9123-9, 27711-04, 45231-9 ####[facility]ORYCLIA [id number] [address] Urea nitrogen [Mass/Vol] 10 mg/dL Normal 9-24 [facility] Comment on above: Order Comment: Speci men Type: BLOOD SPECIMEN Performed By: #### 1 9123-9, 2777, 84564-5 ####[facility]ATORYCLIA [id number] [address] CASE MANAGEMon 06-03-2021 CASE MANAGEM Normal [facility] CBC panel Auto (Bld)on 06-03 Erythrocyte distribution width (RBC) [Ratio] 15.6 % High 11.5-15.0 [facility] Comment on above: Order Comment: Speci men Type: BLOOD SPECIMEN Performed By: #### 5 8410-2 ####[facility]ORYCLIA [id number] [address] Hematocrit (Bld) [Volume fraction] 36.9 % Low 39.0-51.0 [facility] Comment on above: Order Comment: Speci men Type: BLOOD SPECIMEN Performed By: #### 5 8410-2 ####[facility]ORYCLIA [id number] [address] Hemoglobin (Bld) [Mass/Vol] 11.1 g/dL Low 13.0-17.0 [facility] Comment on above: Order Comment: Speci men Type: BLOOD SPECIMEN Performed By: #### 5 8410-2 ####[facility]ATORYCLIA [id number] [address] MCH (RBC) [Entitic mass] 27.0 pg Normal 26.0-34.0 [facility] Comment on above: Order Comment: Speci men Type: BLOOD SPECIMEN Performed By: #### 5 8410-2 ####[facility]ORYCLIA [id number] [address] MCHC (RBC) [Mass/Vol] 30.1 g/dL Low 30.5-36.0 [facility] Comment on above: Order Comment: Speci men Type: BLOOD SPECIMEN Performed By: #### 5 8410-2 ####[facility]ATORYCLIA [id number] [address] MCV (RBC) [Entitic vol] 89.8 fL Normal 80.0-100.0 [facility] Comment on above: Order Comment: Speci men Type: BLOOD SPECIMEN Performed By: #### 5 8410-2 ####[facility]ATORYCLIA [id number] [address] Nucleated RBC (Bld) [#/Vol] 10*3/uL Normal <0.01 [facility] Comment on above: Order Comment: Speci men Type: BLOOD SPECIMEN Performed By: #### 5 8410-2 ####[facility]ATORYCLIA [id number] [address] Platelet mean volume (Bld) [Entitic vol] 10.5 fL Normal 9.0-12.7 [facility] Comment on above: Order Comment: Speci men Type: BLOOD SPECIMEN Performed By: #### 5 8410-2 ####[facility]ATORYCLIA [id number] [address] Platelets (Bld) [#/Vol] 196 10*3/uL Normal 150-400 [facility] Comment on above: Order Comment: Speci men Type: BLOOD SPECIMEN Performed By: #### 5 8410-2 ####[facility]ATORYCLIA [id number] [address] RBC (Bld) [#/Vol] 4.11 10*6/uL Low 4.20-6.00 [facility] Comment on above: Order Comment: Speci men Type: BLOOD SPECIMEN Performed By: #### 5 8410-2 ####[facility]ATORYCLIA [id number] [address] WBC (Bld) [#/Vol] 8.18 10*3/uL Normal 3.70-11.00 [facility] Comment on above: Order Comment: Speci men Type: BLOOD SPECIMEN Performed By: #### 5 8410-2 ####[facility]ATORYCLIA [id number] [address] CONSULTon 06-03-2021 CONSULT Normal [facility] CONSULT PROGon 06-03-2021 CONSULT PROG Normal [facility] Gas and Carbon monoxide pane l (BldV)on 06-03-2021 Base excess Calc (BldV) [Moles/Vol] 1.4 mmol/L Normal 0-2 [facility] Comment on above: Order Comment: Speci men Type: VENOUS BLOOD SPECIMEN Performed By: #### 2 4344-4 ####[facility]ATORYCLIA [id number] [address] Body temperature 98.42 [degF] Normal [facility] Comment on above: Order Comment: Speci men Type: VENOUS BLOOD SPECIMEN Performed By: #### 2 4344-4 ####[facility]ORATORYCLIA [id number] [address] CALCIUM IONIZED, PH CORRECTED 1.09 mmol/L Normal 1.08-1.30 [facility] Comment on above: Order Comment: Speci men Type: VENOUS BLOOD SPECIMEN Performed By: #### 2 4344-4 ####[facility]ORYCLIA [id number] [address] Calcium.ionized (BldV) [Mass/Vol] 1.12 mmol/L Normal 1.08-1.30 [facility] Comment on above: Order Comment: Speci men Type: VENOUS BLOOD SPECIMEN Performed By: #### 2 4344-4 ####[facility]ORYCLIA [id number] [address] Carboxyhemoglobin (BldV) [Mass fraction] 1.7 % Normal 0.0-2.0 [facility] Comment on above: Order Comment: Speci men Type: VENOUS BLOOD SPECIMEN Result Comment: Carb oxyhemoglobin Reference Range for Smokers: 2.0-8.0% Performed By: #### 2 4344-4 ####[facility]ATORYCLIA [id number] [address] CO2 (BldV) [Partial pressure] 50 mm[Hg] Normal 42-55 [facility] Comment on above: Order Comment: Speci men Type: VENOUS BLOOD SPECIMEN Performed By: #### 2 4344-4 ####[facility]ATORYCLIA [id number] [address] [place] CO2 [Moles/Vol] 24.9 mmol/L Low 25-29 [facility] Comment on above: Order Comment: Speci men Type: VENOUS BLOOD SPECIMEN Performed By: #### 2 4344-4 ####[facility]ATORYCLIA [id number] [address] CO2 adjusted to patient's actual temperature (BldV) [Partial pressure] 50 mmHg Normal 42-55 [facility] Comment on above: Order Comment: Speci men Type: VENOUS BLOOD SPECIMEN Performed By: #### 2 4344-4 ####[facility] LABORATORYCLIA [id number] [address] [place] FIO2 30 % Normal [facility] Comment on above: Order Comment: Speci men Type: VENOUS BLOOD SPECIMEN Performed By: #### 2 4344-4 ####[facility]ATORYCLIA [id number] [address] Glucose [Mass/Vol] 191 mg/dL High 60-105 [facility] Comment on above: Order Comment: Speci men Type: VENOUS BLOOD SPECIMEN Performed By: #### 2 4344-4 ####[facility]ORYCLIA [id number] [address] HCO3 (Bld) [Moles/Vol] 27.1 mmol/L Normal 24-28 [facility] Comment on above: Order Comment: Speci men Type: VENOUS BLOOD SPECIMEN Performed By: #### 2 4344-4 ####[facility]ORYCLIA [id number] [address] Hematocrit (Bld) [Volume fraction] 36.2 % Low 39.0-51.0 [facility] Comment on above: Order Comment: Speci men Type: VENOUS BLOOD SPECIMEN Performed By: #### 2 4344-4 ####[facility]ORYCLIA [id number] [address] Hemoglobin (Bld) [Mass/Vol] 11.8 g/dL Low 13.0-17.0 [facility] Comment on above: Order Comment: Speci men Type: VENOUS BLOOD SPECIMEN Performed By: #### 2 4344-4 ####[facility]ATORYCLIA [id number] [address] INHALED TIDAL VOLUME (ML) 530 Normal [facility] Comment on above: Order Comment: Speci men Type: VENOUS BLOOD SPECIMEN Performed By: #### 2 4344-4 ####[facility]ATORYCLIA [id number] [place] [address] [facility] Methemoglobin (Bld) [Mass fraction] % Normal 0.0-1.5 [facility] Comment on above: Order Comment: Speci men Type: VENOUS BLOOD SPECIMEN Performed By: #### 2 4344-4 ####[facility]ATORYCLIA [id number] [place] [address] [facility] [place] O2 THERAPY Ventilator Normal [facility] Comment on above: Order Comment: Speci men Type: VENOUS BLOOD SPECIMEN Performed By: #### 2 4344-4 ####[facility]ATORYCLIA [id number] [place], [place] [address] [place] [address] Oxygen (BldV) [Partial pressure] 69 mm[Hg] High 35-45 [facility] Comment on above: Order Comment: Speci men Type: VENOUS BLOOD SPECIMEN Performed By: #### 2 4344-4 ####[facility]ATORYCLIA [id number] [place], [place] [address] [place] [address] Oxygen adjusted to patient's actual temperature (BldV) [Partial pressure] 68.8 mmHg High 35-45 [facility] Comment on above: Order Comment: Speci men Type: VENOUS BLOOD SPECIMEN Performed By: #### 2 4344-4 ####[facility]ORYCLIA [id number] [place], [place] [address] [place] [address] Oxygen saturation in Blood 92.4 % High 60-85 [facility] Comment on above: Order Comment: Speci men Type: VENOUS BLOOD SPECIMEN Performed By: #### 2 4344-4 ####[facility]ORYCLIA [id number] [place], [place] [address] [place] [address] Oxyhemoglobin (BldV) [Mass fraction] 90 % High 60-85 [facility] Comment on above: Order Comment: Speci men Type: VENOUS BLOOD SPECIMEN Performed By: #### 2 4344-4 ####[facility]ATORYCLIA [id number] [place] [facility], [address] PEEP/CPAP 8 cmH2O Normal [facility] Comment on above: Order Comment: Speci men Type: VENOUS BLOOD SPECIMEN Performed By: #### 2 4344-4 ####[facility]ORYCLIA [id number] [address] pH (BldV) 7.35 [pH] Normal 7.32-7.42 [facility] Comment on above: Order Comment: Speci men Type: VENOUS BLOOD SPECIMEN Performed By: #### 2 4344-4 ####[facility]ORYCLIA [id number] [address] pH adjusted to patient's actual temperature (BldV) 7.35 Normal 7.32-7.42 [facility] Comment on above: Order Comment: Speci men Type: VENOUS BLOOD SPECIMEN Performed By: #### 2 4344-4 ####[facility]ORYCLIA [id number] [address] Potassium [Moles/Vol] 3.6 mmol/L Normal 3.5-5.0 [facility] Comment on above: Order Comment: Speci men Type: VENOUS BLOOD SPECIMEN Performed By: #### 2 4344-4 ####[facility]ORYCLIA [id number] [address] SET VENTILATOR RESPIRATORY RATE (BPM) 18 BPM Normal [facility] Comment on above: Order Comment: Speci men Type: VENOUS BLOOD SPECIMEN Performed By: #### 2 4344-4 ####[facility]ORYCLIA [id number] [address] Sodium [Moles/Vol] 141 mmol/L Normal 136-144 [facility] Comment on above: Order Comment: Speci men Type: VENOUS BLOOD SPECIMEN Performed By: #### 2 4344-4 ####[facility]ORYCLIA [id number] [address] OF [facility] HIV 1+2 Ab IA Qlon 2 HIV 1 and 2 Ab IA.rapid Nom Normal [facility] Comment on above: Order Comment: Speci men Type: BLOOD SPECIMEN Result Comment: Test not indicated. Performed By: #### 3 1201-7, TOXMG ####[facility]ORATORYCLIA [id number] [address] HIV 1+2 Ab+HIV1 p24 Ag IA Ql Non-Reactive Normal Nonreactive [facility] Comment on above: Order Comment: Speci men Type: BLOOD SPECIMEN Result Comment: [place] Rev. Code 3701.243(E): This information has been [...] diagnoses. Performed By: #### 3 1201-7, TOXMG ####[facility]ORATORYCLIA [id number] [address] HIVINT Normal [facility] Comment on above: Order Comment: Speci men Type: BLOOD SPECIMEN Result Comment: No e vidence of HIV-1 or HIV-2 infection. Should recent infection be suspected, repeat testing may be considered 2-3 weeks after this draw. Performed By: #### 3 1201-7, TOXMG ####[facility]ORATORYCLIA [id number] [address] [place] Magnesium SerPl-mCncon 06-03 Magnesium [Mass/Vol] 1.9 mg/dL Normal 1.7-2.3 [facility] Comment on above: Order Comment: Speci men Type: BLOOD SPECIMEN Performed By: #### 1 9123-9, 2777-1, 03249-3 ####[facility]ORATORYCLIA [id number] [address] [place] NUTRITIONon 06-03-2021 NUTRITION Normal [facility] Phosphate SerPl-mCncon 06-03 Phosphate [Mass/Vol] 1.9 mg/dL Low 2.7-4.8 [facility] Comment on above: Order Comment: Speci men Type: BLOOD SPECIMEN Performed By: #### 1 9123-9, 2777-1, 97145-9 ####[facility]ORATORYCLIA [id number] [address] TOXOPLASMOSIS IGM AND IGG AB on 06-03-2021 TOXO IGG QUAL Negative Normal Negative [facility] Comment on above: Order Comment: Speci men Type: BLOOD SPECIMEN Result Comment: No s erological evidence of past exposure to Toxoplasma gondii. Cannot exclude recent infection if the specimen collected within 3-4 weeks after infection.Negative <6.4 IU/mLEquivocal 6.4-9.9 IU/mLPositive >=10.0 IU/mL Performed By: #### 3 1201-7, TOXMG ####[facility]ORATORYCLIA [id number] [address] TOXO IGM QUAL Negative Normal Negative [facility] Comment on above: Order Comment: Speci men Type: BLOOD SPECIMEN Result Comment: No s erological evidence of recent exposure to Toxoplasma gondii.Negative <0.9 IndexEquivocal 0.9-0.99 IndexPositive >=1.0 Index Performed By: #### 3 1201-7, TOXMG ####[facility]ORATORYCLIA [id number] [address] [place] US DVT LOWER BILon 2 US DVT LOWER RAINER Normal [facility] XR CHEST 1V FRONTALon 2021 XR CHEST 1V FRONTAL Normal [facility] ARTERIAL BLOOD GASESon 06-02 Base excess Calc (Bld) [Moles/Vol] 2 mmol/L Normal 0-2 [facility] Comment on above: Order Comment: Speci men Type: ARTERIAL BLOOD SPECIMEN Performed By: #### A LLBG ####[facility]ORATORYCLIA [id number] [address] Body temperature 99.32 [degF] Normal [facility] Comment on above: Order Comment: Speci men Type: ARTERIAL BLOOD SPECIMEN Performed By: #### A LLBG ####[facility]ORYCLIA [id number] [address] CALCIUM IONIZED, PH CORRECTED 1.15 mmol/L Normal 1.08-1.30 [facility] Comment on above: Order Comment: Speci men Type: ARTERIAL BLOOD SPECIMEN Performed By: #### A LLBG ####[facility]ORATORYCLIA [id number] [address] Calcium.ionized (BldV) [Mass/Vol] 1.13 mmol/L Normal 1.08-1.30 [facility] Comment on above: Order Comment: Speci men Type: ARTERIAL BLOOD SPECIMEN Performed By: #### A LLBG ####[facility]ORATORYCLIA [id number] [address] Carboxyhemoglobin (BldA) [Mass fraction] 1.4 % Normal 0.0-2.0 [facility] Comment on above: Order Comment: Speci men Type: ARTERIAL BLOOD SPECIMEN Result Comment: Carb oxyhemoglobin Reference Range for Smokers: 2.0-8.0% Performed By: #### A LLBG ####[facility]ORATORYCLIA [id number] [address] CO2 (Bld) [Partial pressure] 39 mm Hg Normal 36-46 [facility] Comment on above: Order Comment: Speci men Type: ARTERIAL BLOOD SPECIMEN Performed By: #### A LLBG ####[facility]ORATORYCLIA [id number] [address] CO2 [Moles/Vol] 23.4 mmol/L Normal 22-28 [facility] Comment on above: Order Comment: Speci men Type: ARTERIAL BLOOD SPECIMEN Performed By: #### A LLBG ####[facility]ORATORYCLIA [id number] [address] CO2 adjusted to patient's actual temperature (Bld) [Partial pressure] 40 mmHg Normal 36-46 [facility] Comment on above: Order Comment: Speci men Type: ARTERIAL BLOOD SPECIMEN Performed By: #### A LLBG ####[facility]ORYCLIA [id number] [address] Glucose [Mass/Vol] 156 mg/dL High 60-105 [facility] Comment on above: Order Comment: Speci men Type: ARTERIAL BLOOD SPECIMEN Performed By: #### A LLBG ####[facility]ORYCLIA [id number] [address] HCO3 (Bld) [Moles/Vol] 26 mmol/L Normal 22-26 [facility] Comment on above: Order Comment: Speci men Type: ARTERIAL BLOOD SPECIMEN Performed By: #### A LLBG ####[facility]ORYCLIA [id number] [address] Hematocrit (Bld) [Volume fraction] 33.9 % Low 39.0-51.0 [facility] Comment on above: Order Comment: Speci men Type: ARTERIAL BLOOD SPECIMEN Performed By: #### A LLBG ####[facility]ORYCLIA [id number] [address] Hemoglobin (Bld) [Mass/Vol] 11.0 g/dL Low 13.0-17.0 [facility] Comment on above: Order Comment: Speci men Type: ARTERIAL BLOOD SPECIMEN Performed By: #### A LLBG ####[facility]ORYCLIA [id number] [address] Methemoglobin (Bld) [Mass fraction] % Normal 0.0-1.5 [facility] Comment on above: Order Comment: Speci men Type: ARTERIAL BLOOD SPECIMEN Performed By: #### A LLBG ####[facility]ORYCLIA [id number] [address] O2 THERAPY Ventilator Normal [facility] Comment on above: Order Comment: Speci men Type: ARTERIAL BLOOD SPECIMEN Performed By: #### A LLBG ####[facility]ATORYCLIA [id number] [place] [address] [place] Oxygen (Bld) [Partial pressure] 70 mm Hg Low 85-95 [facility] Comment on above: Order Comment: Speci men Type: ARTERIAL BLOOD SPECIMEN Performed By: #### A LLBG ####[facility]ORYCLIA [id number] [place], [place] [address] [place] [address] Oxygen adjusted to patient's actual temperature (Bld) [Partial pressure] 72.2 mmHg Low 85-95 [facility] Comment on above: Order Comment: Speci men Type: ARTERIAL BLOOD SPECIMEN Performed By: #### A LLBG ####[facility]ORYCLIA [id number] [address] OXYGEN SATURATION, ARTERIAL 96 % Normal 95-98 [facility] Comment on above: Order Comment: Speci men Type: ARTERIAL BLOOD SPECIMEN Performed By: #### A LLBG ####[facility]ORATORYCLIA [id number] [address] Oxyhemoglobin (BldA) [Mass fraction] 94 % Low 95-98 [facility] Comment on above: Order Comment: Speci men Type: ARTERIAL BLOOD SPECIMEN Performed By: #### A LLBG ####[facility]ORATORYCLIA [id number] [address] [place] pH (Bld) 7.43 [pH] Normal 7.35-7.45 [facility] Comment on above: Order Comment: Speci men Type: ARTERIAL BLOOD SPECIMEN Performed By: #### A LLBG ####[facility]ORYCLIA [id number] [address] pH adjusted to patient's actual temperature (Bld) 7.42 Normal 7.35-7.45 [facility] Comment on above: Order Comment: Speci men Type: ARTERIAL BLOOD SPECIMEN Performed By: #### A LLBG ####[facility]ORYCLIA [id number] [address] [place] Potassium [Moles/Vol] 2.6 mmol/L Low 3.5-5.0 [facility] Comment on above: Order Comment: Speci men Type: ARTERIAL BLOOD SPECIMEN Performed By: #### A LLBG ####[facility]ORATORYCLIA [id number] [address] Sodium [Moles/Vol] 142 mmol/L Normal 136-144 [facility] Comment on above: Order Comment: Speci men Type: ARTERIAL BLOOD SPECIMEN Performed By: #### A LLBG ####[facility]ORATORYCLIA [id number] [address] Ammonia Plas-sCncon 06-02-19 22 Ammonia (P) [Moles/Vol] 20 umol/L Normal 16-60 [facility] Comment on above: Order Comment: Speci men Type: BLOOD SPECIMEN Performed By: #### 1 6362-6 ####[facility]ORATORYCLIA [id number] [address] Bacteria CSF Culton 06-02-19 22 Bacteria identified Cx Nom (CSF) CULTURE, CSF: No growth 14 days GRAM STAIN: No organisms seen Rare Polymorphonuclear leukocytes Gram stain performed on cytospun specimen. Normal [facility] Comment on above: Performed By: #### 6 06-4 ####[facility]ORATORYCLIA [id number] [address] Basic metabolic 2000 panelon 06-02-2021 Anion gap [Moles/Vol] 10 mmol/L Normal 9-18 [facility] Comment on above: Order Comment: Speci men Type: BLOOD SPECIMEN Performed By: #### 2 4321-2, , 2776-05 ####[facility]ORATORYCLIA [id number] [address] STATES OF [facility] Calcium [Mass/Vol] 8.1 mg/dL Low 8.5-10.2 [facility] Comment on above: Order Comment: Speci men Type: BLOOD SPECIMEN Performed By: #### 2 4321-2, , 2776-05 ####[facility]ORATORYCLIA [id number] [place] [address] [place] Chloride [Moles/Vol] 108 mmol/L High 97-105 [facility] Comment on above: Order Comment: Speci men Type: BLOOD SPECIMEN Performed By: #### 2 4321-2, , 2776-05 ####[facility]ORATORYCLIA [id number] [place] [address] [place] CO2 [Moles/Vol] 24 mmol/L Normal 22-30 [facility] Comment on above: Order Comment: Speci men Type: BLOOD SPECIMEN Performed By: #### 2 1-2, , 2776-05 ####[facility]ORATORYCLIA [id number] [address] STATES OF [facility] Creatinine [Mass/Vol] 0.78 mg/dL Normal 0.73-1.22 [facility] Comment on above: Order Comment: Speci men Type: BLOOD SPECIMEN Performed By: #### 2 1-2, , 2776-05 ####[facility]ORATORYCLIA [id number] [address] [place] GFR/1.73 sq M.predicted MDRD (S/P/Bld) [Vol rate/Area] mL/min/{1.73_m2} Normal [facility] Comment on above: Order [...] Performed By: #### 2 4321-2, , 2776-05 ####[facility]ORATORYCLIA [id number] [address] [place] Glucose [Mass/Vol] 162 mg/dL High 74-99 [facility] Comment on above: Order Comment: Speci men Type: BLOOD SPECIMEN Result Comment: The [place] Diabetes [employer] (ADA) provides guidance for cutoff [...] Standards of Medical Care in Diabetes 2016, [place] [employer]. Diabetes Care. 2016.39(Suppl 1). Performed By: #### 2 1-2, , 2776-05 ####[facility]ORATORYCLIA [id number] [address] [place] Potassium [Moles/Vol] 2.7 mmol/L Low 3.7-5.1 [facility] Comment on above: Order Comment: Speci men Type: BLOOD SPECIMEN Performed By: #### 2 4320-2, , 2776-05 ####[facility]ORATORYCLIA [id number] [address] [facility] Sodium [Moles/Vol] 142 mmol/L Normal 136-144 [facility] Comment on above: Order Comment: Speci men Type: BLOOD SPECIMEN Performed By: #### 2 1-2, , 2776-05 ####[facility]ORATORYCLIA [id number] [place] [address] [place] Urea nitrogen [Mass/Vol] 12 mg/dL Normal 9-24 [facility] Comment on above: Order Comment: Speci men Type: BLOOD SPECIMEN Performed By: #### 2 1-2, , 2776-05 ####[facility]ORATORYCLIA [id number] [address] [facility] CBC panel Auto (Bld)on 06-02 Erythrocyte distribution width (RBC) [Ratio] 15.0 % Normal 11.5-15.0 [facility] Comment on above: Order Comment: Speci men Type: BLOOD SPECIMEN Performed By: #### 5 8410-2 ####[facility]ORATORYCLIA [id number] [address] Hematocrit (Bld) [Volume fraction] 34.3 % Low 39.0-51.0 [facility] Comment on above: Order Comment: Speci men Type: BLOOD SPECIMEN Performed By: #### 5 8410-2 ####[facility]ORATORYCLIA [id number] [address] Hemoglobin (Bld) [Mass/Vol] 10.3 g/dL Low 13.0-17.0 [facility] Comment on above: Order Comment: Speci men Type: BLOOD SPECIMEN Performed By: #### 5 8410-2 ####[facility]ORATORYCLIA [id number] [address] MCH (RBC) [Entitic mass] 27.0 pg Normal 26.0-34.0 [facility] Comment on above: Order Comment: Speci men Type: BLOOD SPECIMEN Performed By: #### 5 8410-2 ####[facility]ORATORYCLIA [id number] [address] MCHC (RBC) [Mass/Vol] 30.0 g/dL Low 30.5-36.0 [facility] Comment on above: Order Comment: Speci men Type: BLOOD SPECIMEN Performed By: #### 5 8410-2 ####[facility]ORATORYCLIA [id number] [address] MCV (RBC) [Entitic vol] 90.0 fL Normal 80.0-100.0 [facility] Comment on above: Order Comment: Speci men Type: BLOOD SPECIMEN Performed By: #### 5 8410-2 ####[facility]ORATORYCLIA [id number] [address] Nucleated RBC (Bld) [#/Vol] 10*3/uL Normal <0.01 [facility] Comment on above: Order Comment: Speci men Type: BLOOD SPECIMEN Performed By: #### 5 8410-2 ####[facility]ORATORYCLIA [id number] [address] Platelet mean volume (Bld) [Entitic vol] 10.2 fL Normal 9.0-12.7 [facility] Comment on above: Order Comment: Speci men Type: BLOOD SPECIMEN Performed By: #### 5 8410-2 ####[facility]ORATORYCLIA [id number] [address] Platelets (Bld) [#/Vol] 194 10*3/uL Normal 150-400 [facility] Comment on above: Order Comment: Speci men Type: BLOOD SPECIMEN Performed By: #### 5 8410-2 ####[facility]ORATORYCLIA [id number] [address] RBC (Bld) [#/Vol] 3.81 10*6/uL Low 4.20-6.00 [facility] Comment on above: Order Comment: Speci men Type: BLOOD SPECIMEN Performed By: #### 5 8410-2 ####[facility]ORATORYCLIA [id number] [address] WBC (Bld) [#/Vol] 9.22 10*3/uL Normal 3.70-11.00 [facility] Comment on above: Order Comment: Speci men Type: BLOOD SPECIMEN Performed By: #### 5 8410-2 ####[facility]ORATORYCLIA [id number] [address] CONSULT PROGon 06-02-2021 CONSULT PROG Normal [facility] CSF MANUAL DIFFon 06-02-2021 DIF TTL, CSF 25 cells counted Normal [facility] Comment on above: Order Comment: Speci men Type: CEREBROSPINAL FLUID Performed By: #### 3 4563-7, [id number], [id number] ####[facility]ATORYCLIA [id number] [place], [place] [id number] [place] [address] [place] LYMPH%, CSF 4 % Low 50-90 [facility] Comment on above: Order Comment: Speci men Type: CEREBROSPINAL FLUID Performed By: #### 3 4563-7, [id number], [id number] ####[facility]ATORYCLIA [id number] [address] [place] MACRO%, CSF 4 % High <1 [facility] Comment on above: Order Comment: Speci men Type: CEREBROSPINAL FLUID Performed By: #### 3 4563-7, [id number], [id number] ####[facility]ATORYCLIA [id number] [address] [place] MONO%, CSF 20 % Normal 10-50 [facility] Comment on above: Order Comment: Speci men Type: CEREBROSPINAL FLUID Performed By: #### 3 4563-7, [id number], [id number] ####[facility]ORYCLIA [id number] [address] [place] NEUT%, CSF 72 % High 0-3 [facility] Comment on above: Order Comment: Speci men Type: CEREBROSPINAL FLUID Performed By: #### 3 4563-7, [id number], [id number] ####[facility]ATORYCLIA [id number] [address] CSF PATHOLOGIST INTERP (LAB REFLEX ORDER-NO BILL)on 06-02-2021 CSF STAFF REVIEW Negative [facility] Comment on above: Order Comment: Speci men Type: CEREBROSPINAL FLUID Performed By: #### 3 4563-7, [id number], [id number] ####[facility]ATORYCLIA [id number] [address] Pathologist name Reviewed by Amador Stevens MD [facility] Comment on above: Order Comment: Speci men Type: CEREBROSPINAL FLUID Performed By: #### 3 4563-7, [id number], [id number] ####[facility]ORATORYCLIA [id number] [address] Cell count panel (CSF)on Clarity (CSF) Clear Normal Clear [facility] Comment on above: Order Comment: Speci men Type: CEREBROSPINAL FLUID Performed By: #### 3 4563-7, [id number], [id number] ####[facility]ORATORYCLIA [id number] [address] Clarity (Unsp spec) Not Indicated Normal Clear [facility] Comment on above: Order Comment: Speci men Type: CEREBROSPINAL FLUID Performed By: #### 3 4563-7, [id number], [id number] ####[facility]ORATORYCLIA [id number] [address] Color (CSF) Colorless Normal Colorless [facility] Comment on above: Order Comment: Speci men Type: CEREBROSPINAL FLUID Performed By: #### 3 4563-7, [id number], [id number] ####[facility]ORATORYCLIA [id number] [address] Color (Spun CSF) Not Indicated Normal Colorless [facility] Comment on above: Order Comment: Speci men Type: CEREBROSPINAL FLUID Performed By: #### 3 4563-7, [id number], [id number] ####[facility] LABORATORYCLIA [id number] [address] CSF TUBE NUMBER Sterile Container Normal [facility] Comment on above: Order Comment: Speci men Type: CEREBROSPINAL FLUID Performed By: #### 3 4563-7, [id number], [id number] ####[facility]ORYCLIA [id number] [address] RBC Manual cnt (CSF) [#/Vol] 117 cells/uL High 0-5 [facility] Comment on above: Order Comment: Speci men Type: CEREBROSPINAL FLUID Performed By: #### 3 4563-7, [id number], [id number] ####[facility]ORYCLIA [id number] [address] STATES OF [facility] WBC Manual cnt (CSF) [#/Vol] 1 cells/uL Normal 0-5 [facility] Comment on above: Order Comment: Speci men Type: CEREBROSPINAL FLUID Performed By: #### 3 4563-7, [id number], [id number] ####[facility]ORATORYCLIA [id number] [address] [place] Glucose CSF-mCncon 2 Glucose (CSF) [Mass/Vol] 82 mg/dL High 40-70 [facility] Comment on above: Order Comment: Speci men Type: CEREBROSPINAL FLUID Result Comment: Lumb ar CSF glucose values of healthy patients are approximately 60% of the plasma values and must always be compared with a concurrently measured plasma value for adequate clinical interpretation.References: 1. Glucose HK (GLUC3) [package insert V 12.0 Spanish]. [employer], [place], [place]. September 2015. 2. Michelle Moore, Loki HGarfield (2015). Chapter 7: Glucose and Lactate. Marianela Alcocer al.(eds.), Cerebrospinal Fluid in Clinical Neurology. Braxton: [employer]. Performed By: #### 2 342-4 ####[facility]ORATORYCLIA [id number] [address] HEPATIC FUNCTION PNLon 06-02 Albumin [Mass/Vol] 3.2 g/dL Low 3.9-4.9 [facility] Comment on above: Order Comment: Speci men Type: BLOOD SPECIMEN Performed By: #### H FP, 35877-3 ####[facility]ORATORYCLIA [id number] [address] [place] ALP [Catalytic activity/Vol] 67 U/L Normal 38-113 [facility] Comment on above: Order Comment: Speci men Type: BLOOD SPECIMEN Performed By: #### [place], 14008-2 ####[facility]ORATORYCLIA [id number] [address] STATES OF [facility] ALT With P-5'-P [Catalytic activity/Vol] 16 U/L Normal 10-54 [facility] Comment on above: Order Comment: Speci men Type: BLOOD SPECIMEN Performed By: #### [place], [address]38-9 ####[employer] TechnologiesVEN[facility] LABORATORYCLIA [id number] [address] AST With P-5'-P [Catalytic activity/Vol] 25 U/L Normal 14-40 [facility] Comment on above: Order Comment: Speci men Type: BLOOD SPECIMEN Performed By: #### Marin KATHIE, 46999-9 ####[facility]ATORYCLIA [id number] [address] Bilirubin [Mass/Vol] 0.2 mg/dL Normal 0.2-1.3 [facility] Comment on above: Order Comment: Speci men Type: BLOOD SPECIMEN Performed By: #### Marin KATHIE, ####[facility]ORYCLIA [id number] [address] Bilirubin.conjugated [Mass/Vol] mg/dL Normal <0.2 [facility] Comment on above: Order Comment: Speci men Type: BLOOD SPECIMEN Performed By: #### Marin KATHIE, 48763-0 ####[employer] TechnologiesVEN[facility] LABORATORYCLIA [id number] [address] Protein [Mass/Vol] 5.8 g/dL Low 6.3-8.0 [facility] Comment on above: Order Comment: Speci men Type: BLOOD SPECIMEN Performed By: #### [place], [address]-1 ####[employer] Technologies[facility] LABORATORYCLIA [id number] [address] MRI BRAIN WO/W IVCONon 06-02 MRI BRAIN WO/W IVCON Normal [facility] Magnesium SerPl-mCncon 06-02 Magnesium [Mass/Vol] 2.0 mg/dL Normal 1.7-2.3 [facility] Comment on above: Order Comment: Speci men Type: BLOOD SPECIMEN Performed By: #### 2 4321-2, 29770-2, 2777-1 ####[facility]ORATORYCLIA [id number] [address] NT-proBNP SerPl-ncon 06-02 Natriuretic peptide.B prohormone N-Terminal [Mass/Vol] 296 pg/mL High <125 [facility] Comment on above: Order Comment: Speci men Type: BLOOD SPECIMEN Performed By: #### H FP, 64439-9 ####[facility] LABORATORYCLIA [id number] [address] OF [facility] POTASSIUM BLDon 06-02-2021 Potassium [Moles/Vol] 3.2 mmol/L Low 3.7-5.1 [facility] Comment on above: Order Comment: Speci men Type: BLOOD SPECIMEN Performed By: #### K 1 ####[facility]ORATORYCLIA [id number] [address] STATES OF [facility] Phosphate [Mass/Vol] 2.1 mg/dL Low 2.7-4.8 [facility] Comment on above: Order Comment: Speci men Type: BLOOD SPECIMEN Performed By: #### 2 4321-2, 90333-7, 2777-1 ####[facility]ORATORYCLIA [id number] [address] [place] Vancomycin random [Mass/Vol] on 06-02-2021 Vancomycin [Mass/Vol] 18.8 ug/mL Normal 10.0-20.0 [facility] Comment on above: Order Comment: Speci men Type: BLOOD SPECIMEN Result Comment: Refe rence ranges and high/low indicator flags are provided as general guidelines only. The treating physician must determine appropriate target levels/dosing based on the specific clinical situation. Performed By: #### 4 091-5 ####[facility]ORATORYCLIA [id number] [address] [place] ALLIED HEALTHon 06-01-2021 ALLIED HEALTH Normal [facility] ALLIED HEALTH Normal [facility] ALLIED HEALTH Normal [facility] ARTERIAL BLOOD GASESon 06-01 Base excess Calc (Bld) [Moles/Vol] 1 mmol/L Normal 0-2 [facility] Comment on above: Order Comment: Speci men Type: ARTERIAL BLOOD SPECIMEN Performed By: #### A LLBG ####[facility]ORATORYCLIA [id number] [address] Body temperature 97.52 [degF] Normal [facility] Comment on above: Order Comment: Speci men Type: ARTERIAL BLOOD SPECIMEN Performed By: #### A LLBG ####[facility]ORATORYCLIA [id number] [address] CALCIUM IONIZED, PH CORRECTED 1.13 mmol/L Normal 1.08-1.30 [facility] Comment on above: Order Comment: Speci men Type: ARTERIAL BLOOD SPECIMEN Performed By: #### A LLBG ####[facility]ORATORYCLIA [id number] [address] Calcium.ionized (BldV) [Mass/Vol] 1.12 mmol/L Normal 1.08-1.30 [facility] Comment on above: Order Comment: Speci men Type: ARTERIAL BLOOD SPECIMEN Performed By: #### A LLBG ####[facility]ORATORYCLIA [id number] [address] Carboxyhemoglobin (BldA) [Mass fraction] 1.6 % Normal 0.0-2.0 [facility] Comment on above: Order Comment: Speci men Type: ARTERIAL BLOOD SPECIMEN Result Comment: Carb oxyhemoglobin Reference Range for Smokers: 2.0-8.0% Performed By: #### A LLBG ####[facility]ATORYCLIA [id number] [address] CO2 (Bld) [Partial pressure] 41 mm Hg Normal 36-46 [facility] Comment on above: Order Comment: Speci men Type: ARTERIAL BLOOD SPECIMEN Performed By: #### A LLBG ####[facility]ATORYCLIA [id number] [address] CO2 [Moles/Vol] 23.0 mmol/L Normal 22-28 [facility] Comment on above: Order Comment: Speci men Type: ARTERIAL BLOOD SPECIMEN Performed By: #### A LLBG ####[facility]ORYCLIA [id number] [address] CO2 adjusted to patient's actual temperature (Bld) [Partial pressure] 40 mmHg Normal 36-46 [facility] Comment on above: Order Comment: Speci men Type: ARTERIAL BLOOD SPECIMEN Performed By: #### A LLBG ####[facility]ATORYCLIA [id number] [address] [place] FIO2 40 % Normal [facility] Comment on above: Order Comment: Speci men Type: ARTERIAL BLOOD SPECIMEN Performed By: #### A LLBG ####[facility]ORYCLIA [id number] [address] Glucose [Mass/Vol] 127 mg/dL High 60-105 [facility] Comment on above: Order Comment: Speci men Type: ARTERIAL BLOOD SPECIMEN Performed By: #### A LLBG ####[facility]ATORYCLIA [id number] [address] HCO3 (Bld) [Moles/Vol] 25 mmol/L Normal 22-26 [facility] Comment on above: Order Comment: Speci men Type: ARTERIAL BLOOD SPECIMEN Performed By: #### A LLBG ####[facility]ORYCLIA [id number] [address] OF [place] Hematocrit (Bld) [Volume fraction] 33.7 % Low 39.0-51.0 [facility] Comment on above: Order Comment: Speci men Type: ARTERIAL BLOOD SPECIMEN Performed By: #### A LLBG ####[facility]ORYCLIA [id number] [address] Hemoglobin (Bld) [Mass/Vol] 10.9 g/dL Low 13.0-17.0 [facility] Comment on above: Order Comment: Speci men Type: ARTERIAL BLOOD SPECIMEN Performed By: #### A LLBG ####[facility]ATORYCLIA [id number] [address] OF [place] INHALED TIDAL VOLUME (ML) 500 Normal [facility] Comment on above: Order Comment: Speci men Type: ARTERIAL BLOOD SPECIMEN Performed By: #### A LLBG ####[facility]ATORYCLIA [id number] [address] INVASIVE VENTILATOR MODE PRVC=Pressure Regulated Volume Control Normal [facility] Comment on above: Order Comment: Speci men Type: ARTERIAL BLOOD SPECIMEN Performed By: #### A LLBG ####[facility]ATORYCLIA [id number] [address] OF [place] Methemoglobin (Bld) [Mass fraction] % Normal 0.0-1.5 [facility] Comment on above: Order Comment: Speci men Type: ARTERIAL BLOOD SPECIMEN Performed By: #### A LLBG ####[facility]ATORYCLIA [id number] [address] OF [place] O2 THERAPY Ventilator Normal [facility] Comment on above: Order Comment: Speci men Type: ARTERIAL BLOOD SPECIMEN Performed By: #### A LLBG ####[facility]ATORYCLIA [id number] [address] OF [place] Oxygen (Bld) [Partial pressure] 64 mm Hg Low 85-95 [facility] Comment on above: Order Comment: Speci men Type: ARTERIAL BLOOD SPECIMEN Performed By: #### A LLBG ####[facility]ORYCLIA [id number] [address] OF [place] Oxygen adjusted to patient's actual temperature (Bld) [Partial pressure] 61.8 mmHg Low 85-95 [facility] Comment on above: Order Comment: Speci men Type: ARTERIAL BLOOD SPECIMEN Performed By: #### A LLBG ####[facility]ATORYCLIA [id number] [address] OF [place] OXYGEN SATURATION, ARTERIAL 94 % Low 95-98 [facility] Comment on above: Order Comment: Speci men Type: ARTERIAL BLOOD SPECIMEN Performed By: #### A LLBG ####[facility]ORYCLIA [id number] [address] Oxyhemoglobin (BldA) [Mass fraction] 92 % Low 95-98 [facility] Comment on above: Order Comment: Speci men Type: ARTERIAL BLOOD SPECIMEN Performed By: #### A LLBG ####[facility]ORYCLIA [id number] [address] PEEP/CPAP 5 cmH2O Normal [facility] Comment on above: Order Comment: Speci men Type: ARTERIAL BLOOD SPECIMEN Performed By: #### A LLBG ####[facility]ORYCLIA [id number] [address] pH (Bld) 7.40 [pH] Normal 7.35-7.45 [facility] Comment on above: Order Comment: Speci men Type: ARTERIAL BLOOD SPECIMEN Performed By: #### A LLBG ####[facility]ORYCLIA [id number] [address] pH adjusted to patient's actual temperature (Bld) 7.41 Normal 7.35-7.45 [facility] Comment on above: Order Comment: Speci men Type: ARTERIAL BLOOD SPECIMEN Performed By: #### A LLBG ####[facility]ORYCLIA [id number] [address] Potassium [Moles/Vol] 3.1 mmol/L Low 3.5-5.0 [facility] Comment on above: Order Comment: Speci men Type: ARTERIAL BLOOD SPECIMEN Performed By: #### A LLBG ####[facility]ORYCLIA [id number] [address] SET VENTILATOR RESPIRATORY RATE (BPM) 18 BPM Normal [facility] Comment on above: Order Comment: Speci men Type: ARTERIAL BLOOD SPECIMEN Performed By: #### A LLBG ####[facility]ORYCLIA [id number] [address] Sodium [Moles/Vol] 141 mmol/L Normal 136-144 [facility] Comment on above: Order Comment: Speci men Type: ARTERIAL BLOOD SPECIMEN Performed By: #### A LLBG ####[facility]ORATORYCLIA [id number] [address] BASE DEFICIT, ARTERIAL -1.0 mmol/L Normal -2-0 [facility] Comment on above: Order Comment: Speci men Type: ARTERIAL BLOOD SPECIMEN Performed By: #### A LLBG ####[facility]ORATORYCLIA [id number] [address] Body temperature 98.24 [degF] Normal [facility] Comment on above: Order Comment: Speci men Type: ARTERIAL BLOOD SPECIMEN Performed By: #### A LLBG ####[facility]ORATORYCLIA [id number] [address] CALCIUM IONIZED, PH CORRECTED 1.08 mmol/L Normal 1.08-1.30 [facility] Comment on above: Order Comment: Speci men Type: ARTERIAL BLOOD SPECIMEN Performed By: #### A LLBG ####[facility]ATORYCLIA [id number] [address] Calcium.ionized (BldV) [Mass/Vol] 1.15 mmol/L Normal 1.08-1.30 [facility] Comment on above: Order Comment: Speci men Type: ARTERIAL BLOOD SPECIMEN Performed By: #### A LLBG ####[facility]ATORYCLIA [id number] [address] Carboxyhemoglobin (BldA) [Mass fraction] 1.4 % Normal 0.0-2.0 [facility] Comment on above: Order Comment: Speci men Type: ARTERIAL BLOOD SPECIMEN Result Comment: Carb oxyhemoglobin Reference Range for Smokers: 2.0-8.0% Performed By: #### A LLBG ####[facility]ORATORYCLIA [id number] [place] [address] [place] CO2 (Bld) [Partial pressure] 59 mm Hg High 36-46 [facility] Comment on above: Order Comment: Speci men Type: ARTERIAL BLOOD SPECIMEN Performed By: #### A LLBG ####[facility]ORYCLIA [id number] [address] CO2 [Moles/Vol] 24.5 mmol/L Normal 22-28 [facility] Comment on above: Order Comment: Speci men Type: ARTERIAL BLOOD SPECIMEN Performed By: #### A LLBG ####[facility]ORYCLIA [id number] [address] CO2 adjusted to patient's actual temperature (Bld) [Partial pressure] 58 mmHg High 36-46 [facility] Comment on above: Order Comment: Speci men Type: ARTERIAL BLOOD SPECIMEN Performed By: #### A LLBG ####[facility]ORYCLIA [id number] [address] FIO2 40 % Normal [facility] Comment on above: Order Comment: Speci men Type: ARTERIAL BLOOD SPECIMEN Performed By: #### A LLBG ####[facility]ORYCLIA [id number] [address] Glucose [Mass/Vol] 128 mg/dL High 60-105 [facility] Comment on above: Order Comment: Speci men Type: ARTERIAL BLOOD SPECIMEN Performed By: #### A LLBG ####[facility]ORYCLIA [id number] [address] [place] HCO3 (Bld) [Moles/Vol] 26 mmol/L Normal 22-26 [facility] Comment on above: Order Comment: Speci men Type: ARTERIAL BLOOD SPECIMEN Performed By: #### A LLBG ####[facility]ORYCLIA [id number] [address] Hematocrit (Bld) [Volume fraction] 35.6 % Low 39.0-51.0 [facility] Comment on above: Order Comment: Speci men Type: ARTERIAL BLOOD SPECIMEN Performed By: #### A LLBG ####[facility]ORYCLIA [id number] [address] [place] Hemoglobin (Bld) [Mass/Vol] 11.5 g/dL Low 13.0-17.0 [facility] Comment on above: Order Comment: Speci men Type: ARTERIAL BLOOD SPECIMEN Performed By: #### A LLBG ####[facility]ORYCLIA [id number] [address] INHALED TIDAL VOLUME (ML) 500 Normal [facility] Comment on above: Order Comment: Speci men Type: ARTERIAL BLOOD SPECIMEN Performed By: #### A LLBG ####[facility]ORYCLIA [id number] [address] INVASIVE VENTILATOR MODE PRVC=Pressure Regulated Volume Control [facility] Comment on above: Order Comment: Speci men Type: ARTERIAL BLOOD SPECIMEN Performed By: #### A LLBG ####[facility]ORYCLIA [id number] [address] Methemoglobin (Bld) [Mass fraction] % Normal 0.0-1.5 [facility] Comment on above: Order Comment: Speci men Type: ARTERIAL BLOOD SPECIMEN Performed By: #### A LLBG ####[facility]ORYCLIA [id number] [address] [place] O2 THERAPY Ventilator Normal [facility] Comment on above: Order Comment: Speci men Type: ARTERIAL BLOOD SPECIMEN Performed By: #### A LLBG ####[facility]ORYCLIA [id number] [address] [place] Oxygen (Bld) [Partial pressure] 88 mm Hg Normal 85-95 [facility] Comment on above: Order Comment: Speci men Type: ARTERIAL BLOOD SPECIMEN Performed By: #### A LLBG ####[facility]ORYCLIA [id number] [address] OF [place] Oxygen adjusted to patient's actual temperature (Bld) [Partial pressure] 86.5 mmHg Normal 85-95 [facility] Comment on above: Order Comment: Speci men Type: ARTERIAL BLOOD SPECIMEN Performed By: #### A LLBG ####[facility]ORYCLIA [id number] [address] OXYGEN SATURATION, ARTERIAL 95 % Normal 95-98 [facility] Comment on above: Order Comment: Speci men Type: ARTERIAL BLOOD SPECIMEN Performed By: #### A LLBG ####[facility]ORYCLIA [id number] [address] Oxyhemoglobin (BldA) [Mass fraction] 93 % Low 95-98 [facility] Comment on above: Order Comment: Speci men Type: ARTERIAL BLOOD SPECIMEN Performed By: #### A LLBG ####[facility]ORYCLIA [id number] [address] PEEP/CPAP 5 cmH2O Normal [facility] Comment on above: Order Comment: Speci men Type: ARTERIAL BLOOD SPECIMEN Performed By: #### A LLBG ####[facility]ORYCLIA [id number] [address] pH (Bld) 7.27 [pH] Low 7.35-7.45 [facility] Comment on above: Order Comment: Speci men Type: ARTERIAL BLOOD SPECIMEN Performed By: #### A LLBG ####[facility]ORYCLIA [id number] [address] pH adjusted to patient's actual temperature (Bld) 7.28 Low 7.35-7.45 [facility] Comment on above: Order Comment: Speci men Type: ARTERIAL BLOOD SPECIMEN Performed By: #### A LLBG ####[facility]ORYCLIA [id number] [address] Potassium [Moles/Vol] 3.3 mmol/L Low 3.5-5.0 [facility] Comment on above: Order Comment: Speci men Type: ARTERIAL BLOOD SPECIMEN Performed By: #### A LLBG ####[facility]ORYCLIA [id number] [address] SET VENTILATOR RESPIRATORY RATE (BPM) 14 BPM Normal [facility] Comment on above: Order Comment: Speci men Type: ARTERIAL BLOOD SPECIMEN Performed By: #### A LLBG ####[facility]ATORYCLIA [id number] [address] Sodium [Moles/Vol] 141 mmol/L Normal 136-144 [facility] Comment on above: Order Comment: Speci men Type: ARTERIAL BLOOD SPECIMEN Performed By: #### A LLBG ####[facility]ORATORYCLIA [id number] [address] Bacteria CSF Culton 06-01-19 22 Bacteria identified Cx Nom (CSF) CULTURE, CSF: No growth 14 days GRAM STAIN: No organisms seen Rare Polymorphonuclear leukocytes Moderate Red Blood Cells Gram stain performed on cytospun specimen. Normal [facility] Comment on above: Performed By: #### 6 06-4 ####[facility]ORATORYCLIA [id number] [address] [place] Bacteria Spec Resp Culton Bacteria identified Respiratory culture Nom (Unsp spec) CULTURE, RESPIRATORY: No growth 2 days GRAM STAIN: No organisms seen No Polymorphonuclear Leukocytes Normal [facility] Comment on above: Performed By: #### 3 2355-0 ####[facility]ORATORYCLIA [id number] [address] OF [facility] Basic metabolic 2000 panelon 06-01-2021 Anion gap [Moles/Vol] 8 mmol/L Low 9-18 [facility] Comment on above: Order Comment: Speci men Type: BLOOD SPECIMEN Performed By: #### 2 4321-2, 71209-8, 2777-1 ####[facility]ORATORYCLIA [id number] [address] Calcium [Mass/Vol] 7.8 mg/dL Low 8.5-10.2 [facility] Comment on above: Order Comment: Speci men Type: BLOOD SPECIMEN Performed By: #### 2 4321-2, , 2776-05 ####[facility]ORATORYCLIA [id number] [address] STATES OF [facility] Chloride [Moles/Vol] 109 mmol/L High 97-105 [facility] Comment on above: Order Comment: Speci men Type: BLOOD SPECIMEN Performed By: #### 2 1-2, , 2776-05 ####[facility]ORATORYCLIA [id number] [address] [facility] CO2 [Moles/Vol] 26 mmol/L Normal 22-30 [facility] Comment on above: Order Comment: Speci men Type: BLOOD SPECIMEN Performed By: #### 2 1-2, , 2776-05 ####[facility]ATORYCLIA [id number] [address] STATES OF [facility] Creatinine [Mass/Vol] 0.82 mg/dL Normal 0.73-1.22 [facility] Comment on above: Order Comment: Speci men Type: BLOOD SPECIMEN Performed By: #### 2 4320-2, , 2776-05 ####[facility]ORATORYCLIA [id number] [address] [place] GFR/1.73 sq M.predicted MDRD (S/P/Bld) [Vol rate/Area] mL/min/{1.73_m2} Normal [facility] Comment on above: Order [...] Performed By: #### 2 1-2, , 2776-05 ####[facility]ORATORYCLIA [id number] [place] [address] [place] Glucose [Mass/Vol] 105 mg/dL High 74-99 [facility] Comment on above: Order Comment: Speci men Type: BLOOD SPECIMEN Result Comment: The [place] [employer] (ADA) provides guidance for cutoff [...] Standards of Medical Care in Diabetes 2016, [place] [employer]. Diabetes Care. 2016.39(Suppl 1). Performed By: #### 2 4320-2, , 2776-05 ####[facility]ORATORYCLIA [id number] [place] [address] [place] Potassium [Moles/Vol] 3.8 mmol/L Normal 3.7-5.1 [facility] Comment on above: Order Comment: Speci men Type: BLOOD SPECIMEN Performed By: #### 2 4320-2, , 2776-05 ####[facility]ORATORYCLIA [id number] [place] [address] [place] Sodium [Moles/Vol] 143 mmol/L Normal 136-144 [facility] Comment on above: Order Comment: Speci men Type: BLOOD SPECIMEN Performed By: #### 2 4320-2, , 2776-05 ####[facility]ATORYCLIA [id number] [address] [place] Urea nitrogen [Mass/Vol] 15 mg/dL Normal 9-24 [facility] Comment on above: Order Comment: Speci men Type: BLOOD SPECIMEN Performed By: #### 2 4320-2, , 2777-1 ####[facility]ORATORYCLIA [id number] [address] CBC panel Auto (Bld)on 06-01 Erythrocyte distribution width (RBC) [Ratio] 15.4 % High 11.5-15.0 [facility] Comment on above: Order Comment: Speci men Type: BLOOD SPECIMEN Performed By: #### 5 8410-2 ####[facility] LABORATORYCLIA [id number] [address] Hematocrit (Bld) [Volume fraction] 38.4 % Low 39.0-51.0 [facility] Comment on above: Order Comment: Speci men Type: BLOOD SPECIMEN Performed By: #### 5 8410-2 ####[facility]ORATORYCLIA [id number] [address] Hemoglobin (Bld) [Mass/Vol] 11.1 g/dL Low 13.0-17.0 [facility] Comment on above: Order Comment: Speci men Type: BLOOD SPECIMEN Performed By: #### 5 8410-2 ####[facility]ATORYCLIA [id number] [address] MCH (RBC) [Entitic mass] 26.9 pg Normal 26.0-34.0 [facility] Comment on above: Order Comment: Speci men Type: BLOOD SPECIMEN Performed By: #### 5 8410-2 ####[facility]ORATORYCLIA [id number] [address] MCHC (RBC) [Mass/Vol] 28.9 g/dL Low 30.5-36.0 [facility] Comment on above: Order Comment: Speci men Type: BLOOD SPECIMEN Performed By: #### 5 8410-2 ####[facility]ORATORYCLIA [id number] [address] MCV (RBC) [Entitic vol] 93.2 fL Normal 80.0-100.0 [facility] Comment on above: Order Comment: Speci men Type: BLOOD SPECIMEN Performed By: #### 5 8410-2 ####[facility]ATORYCLIA [id number] [address] Nucleated RBC (Bld) [#/Vol] 10*3/uL Normal <0.01 [facility] Comment on above: Order Comment: Speci men Type: BLOOD SPECIMEN Performed By: #### 5 8410-2 ####[facility]ATORYCLIA [id number] [address] Platelet mean volume (Bld) [Entitic vol] 10.2 fL Normal 9.0-12.7 [facility] Comment on above: Order Comment: Speci men Type: BLOOD SPECIMEN Performed By: #### 5 8410-2 ####[facility]ATORYCLIA [id number] [address] Platelets (Bld) [#/Vol] 231 10*3/uL Normal 150-400 [facility] Comment on above: Order Comment: Speci men Type: BLOOD SPECIMEN Performed By: #### 5 8410-2 ####[facility]ATORYCLIA [id number] [address] RBC (Bld) [#/Vol] 4.12 10*6/uL Low 4.20-6.00 [facility] Comment on above: Order Comment: Speci men Type: BLOOD SPECIMEN Performed By: #### 5 8410-2 ####[facility]ORATORYCLIA [id number] [address] OF [facility] WBC (Bld) [#/Vol] 10.99 10*3/uL Normal 3.70-11.00 [facility] Comment on above: Order Comment: Speci men Type: BLOOD SPECIMEN Performed By: #### 5 8410-2 ####[facility]ORYCLIA [id number] [address] OF [facility] CONSULT PROGon 06-01-2021 CONSULT PROG Normal [facility] CSF MANUAL DIFFon 06-01-2021 DIF TTL, CSF 100 cells counted Normal [facility] Comment on above: Order Comment: Speci men Type: CEREBROSPINAL FLUID Performed By: #### 3 4563-7, [id number] ####[facility]ORYCLIA [id number] [place], [place] [id number] [place] [address] LYMPH%, CSF 11 % Low 50-90 [facility] Comment on above: Order Comment: Speci men Type: CEREBROSPINAL FLUID Performed By: #### 3 4563-7, [id number] ####[facility]ATORYCLIA [id number] [address] [place] MONO%, CSF 10 % Normal 10-50 [facility] Comment on above: Order Comment: Speci men Type: CEREBROSPINAL FLUID Performed By: #### 3 4563-7, [id number] ####[facility]ATORYCLIA [id number] [address] NEUT%, CSF 79 % High 0-3 [facility] Comment on above: Order Comment: Speci men Type: CEREBROSPINAL FLUID Performed By: #### 3 4563-7, [id number] ####[facility]ATORYCLIA [id number] [address] BRAIN WO IVCONon 06-01-19 CT BRAIN WO IVCON Normal [facility] Cell count panel (CSF)on Clarity (CSF) Clear Normal Clear [facility] Comment on above: Order Comment: Speci men Type: CEREBROSPINAL FLUID Performed By: #### 3 4563-7, [id number] ####[facility]ORYCLIA [id number] [address] Clarity (Unsp spec) Not Indicated Normal Clear [facility] Comment on above: Order Comment: Speci men Type: CEREBROSPINAL FLUID Performed By: #### 3 4563-7, [id number] ####[facility]ORYCLIA [id number] [address] Color (CSF) Colorless Normal Colorless [facility] Comment on above: Order Comment: Speci men Type: CEREBROSPINAL FLUID Performed By: #### 3 4563-7, [id number] ####[facility]ORATORYCLIA [id number] [address] Color (Spun CSF) Not Indicated Normal Colorless [facility] Comment on above: Order Comment: Speci men Type: CEREBROSPINAL FLUID Performed By: #### 3 4563-7, [id number] ####[facility]ORATORYCLIA [id number] [address] CSF TUBE NUMBER [employer] Normal [facility] Comment on above: Order Comment: Speci men Type: CEREBROSPINAL FLUID Performed By: #### 3 4563-7, [id number] ####[facility] LABORATORYCLIA [id number] [address] RBC Manual cnt (CSF) [#/Vol] 171 cells/uL High 0-5 [facility] Comment on above: Order Comment: Speci men Type: CEREBROSPINAL FLUID Performed By: #### 3 4563-7, [id number] ####[facility]ORATORYCLIA [id number] [address] WBC Manual cnt (CSF) [#/Vol] 5 cells/uL Normal 0-5 [facility] Comment on above: Order Comment: Speci men Type: CEREBROSPINAL FLUID Performed By: #### 3 4563-7, [id number] ####[facility]ORATORYCLIA [id number] [address] FUNGAL CULTUREon 06-01-2021 FUNGAL CULTURE CULTURE, FUNGAL: No Fungus isolated after 28 days Normal [facility] Comment on above: Performed By: #### F CUL ####[facility]ORATORYCLIA [id number] [address] Glucose CSF-mCncon Glucose (CSF) [Mass/Vol] 78 mg/dL High 40-70 [facility] Comment on above: Order Comment: Speci men Type: CEREBROSPINAL FLUID Result Comment: Lumb ar CSF glucose values of healthy patients are approximately 60% of the plasma values and must always be compared with a concurrently measured plasma value for adequate clinical interpretation.References: 1. Glucose HK (GLUC3) [package insert V 12.0 Spanish]. [employer], [place], [place]. September 2015. 2. Michelle Moore, Michelle Manjarrez (2015). Chapter 7: Glucose and Lactate. F. Irina rose al.(eds.), Cerebrospinal Fluid in Clinical Neurology. [place]: [employer]. Performed By: #### 2 342-4, 2880-3 ####[facility]ORATORYCLIA [id number] [place], [place] [id number] [place] [address] [place] HERPES SIMPLEX CSFon 022 HERPES SIMPLEX CSF HSV PCR SPEC SOURCE: Cerebrospinal Fluid HSV-1: Negative for Herpes Simplex Virus Type 1 by PCR HSV-2: Negative for Herpes Simplex Virus Type 2 by PCR Normal [facility] Comment on above: Performed By: #### H [facility] ####[facility] LABCLIA [id number] [place] [address] [place] Lactate (Bld) [Moles/Vol]on 06-01-2021 Lactate [Moles/Vol] 0.5 mmol/L Normal 0.5-2.2 [facility] Comment on above: Order Comment: Speci men Type: BLOOD SPECIMEN Performed By: #### 3 2693-4 ####[facility]ORATORYCLIA [id number] [place] [address] [facility] [place] MENINGITIS ENCEPHALITIS BIOF IREon 06-01-2021 MENINGITIS ENCEPHALITIS BIOFIRE Negative Normal [facility] Comment on above: Order Comment: Speci men Type: CEREBROSPINAL FLUID Performed By: #### M GEBF ####[facility] COMPANYIA [id number] [address] Magnesium SerPl-mCncon 06-01 Magnesium [Mass/Vol] 2.2 mg/dL Normal 1.7-2.3 [facility] Comment on above: Order Comment: Speci men Type: BLOOD SPECIMEN Performed By: #### 2 4321-2, 01023-1, 7447-1 ####[facility] LABORATORYCLIA [id number] [place], [place] [id number] [place] [address] [place] Microorganism Spec Culton Microorganism identified Cx Nom (Unsp spec) CULTURE, AFB: No Acid Fast Bacilli isolated after 42 days AFB STAIN: No acid fast bacilli seen by flurochrome stain Normal [facility] Comment on above: Performed By: #### 1 1475-1 ####[facility]ORATORYCLIA [id number] [address] OF [place] PROCALCITONIN (LAB)on 2021 Procalcitonin [Mass/Vol] 0.08 ng/mL Normal <0.09 [facility] Comment on above: Order Comment: Speci men Type: BLOOD SPECIMEN Result Comment: For a guided interpretation of test results, please visit the [facility] in Procalcitonin Calculator, [email or web address]. Performed By: #### P ROCAL ####[facility] LABORATORYCLIA [id number] [address] [place] Phosphate SerPl-ncon 06-01 Phosphate [Mass/Vol] 3.5 mg/dL Normal 2.7-4.8 [facility] Comment on above: Order Comment: Speci men Type: BLOOD SPECIMEN Performed By: #### 2 4321-2, 42328-4, 2776-1 ####[facility]ORATORYCLIA [id number] [address] [place] Prot CSF-mCncon 06-01-2021 Protein (CSF) [Mass/Vol] 52 mg/dL High 15-45 [facility] Comment on above: Order Comment: Speci men Type: CEREBROSPINAL FLUID Performed By: #### 2 342-4, 2880-3 ####[facility]ORATORYCLIA [id number] [address] [place] Vancomycin random [Mass/Vol] on 06-01-2021 Vancomycin [Mass/Vol] 14.6 ug/mL Normal 10.0-20.0 [facility] Comment on above: Order Comment: Speci men Type: BLOOD SPECIMEN Result Comment: Refe rence ranges and high/low indicator flags are provided as general guidelines only. The treating physician must determine appropriate target levels/dosing based on the specific clinical situation. Performed By: #### 4 091-5 ####[facility]ORATORYCLIA [id number] [address] [place] XR CHEST 1V FRONTALon 2021 XR CHEST 1V FRONTAL Normal [facility] XR CHEST 1V FRONTAL Normal [facility] XR NECK SOFT TISSUE 2V AP/LA Ton 06-01-2021 XR NECK SOFT TISSUE 2V AP/LAT Normal [facility] XR SKULL 2V AP/LATon 022 XR SKULL 2V AP/LAT Normal [facility] ALLIED HEALTHon 05-31-2021 ALLIED HEALTH HNO ID: [id number] Author: Christina Lynne RT(R) Service: Radiology Author Type: Technologist Type: Allied Health Filed: 05/31/2021 5:48 PM Note Text: MRI tomorrow per RN. Normal [facility] ALLIED HEALTH Normal [facility] ALLIED HEALTH Normal [facility] HEALTH Normal [facility] ANES POSTPROC EVALon 022 ANES POSTPROC EVAL Normal [facility] ANES PRE-OPon 05-31-2021 ANES PRE-OP Normal [facility] BRIEF OP NOTon 05-31-2021 BRIEF OP NOT Normal [facility] Bacteria Bld Culton 05-31-19 22 Bacteria identified Cx Nom (Bld) CULTURE, BLOOD: No growth 5 days Normal [facility] Comment on above: Performed By: #### 6 00-7 ####[facility]ORATORYCLIA [id number] [address] OF [facility] Bacteria CSF Culton 05-31-19 22 Bacteria identified Cx Nom (CSF) CULTURE, CSF: No growth 14 days GRAM STAIN: No organisms seen Rare Polymorphonuclear leukocytes Rare Red Blood Cells Gram stain performed on cytospun specimen. Normal [facility] Comment on above: Performed By: #### 6 06-4 ####[facility]ATORYCLIA [id number] [place] [address] [place] Basic metabolic 2000 panelon 05-31-2021 Anion gap [Moles/Vol] 9 mmol/L Normal 9-18 [facility] Comment on above: Order Comment: Speci men Type: BLOOD SPECIMEN Performed By: #### 2 777-1, 09632-0, ####[facility] LABORATORYCLIA [id number] [address] STATES OF [facility] Calcium [Mass/Vol] 8.2 mg/dL Low 8.5-10.2 [facility] Comment on above: Order Comment: Speci men Type: BLOOD SPECIMEN Performed By: #### 2 777-1, , ####[facility]ORYCLIA [id number] [address] [place] Chloride [Moles/Vol] 110 mmol/L High 97-105 [facility] Comment on above: Order Comment: Speci men Type: BLOOD SPECIMEN Performed By: #### 2 777-1, , ####[facility]ORYCLIA [id number] [address] STATES OF [facility] CO2 [Moles/Vol] 27 mmol/L Normal 22-30 [facility] Comment on above: Order Comment: Speci men Type: BLOOD SPECIMEN Performed By: #### 2 777-1, , ####[facility]ATORYCLIA [id number] [place] [address] [place] Creatinine [Mass/Vol] 0.85 mg/dL Normal 0.73-1.22 [facility] Comment on above: Order Comment: Speci men Type: BLOOD SPECIMEN Performed By: #### 2 777-1, 04300-3, ####[facility]ATORYCLIA [id number] [place] [address] [place] GFR/1.73 sq M.predicted MDRD (S/P/Bld) [Vol rate/Area] mL/min/{1.73_m2} Normal [facility] Comment on above: Order [...] actual GFR. Performed By: #### 2 777-1, 18911-8, 70830-3 ####[facility]ORATORYCLIA [id number] [place] [address] [place] Glucose [Mass/Vol] 111 mg/dL High 74-99 [facility] Comment on above: Order Comment: Speci men Type: BLOOD SPECIMEN Result Comment: The [place] Diabetes Association (ADA) provides guidance for cutoff [...] Standards of Medical Care in Diabetes 2016, [place] [employer]. Diabetes Care. 2016.39(Suppl 1). Performed By: #### 2 777-1, 60389-6, 17052-9 ####[facility]ORATORYCLIA [id number] [place] [address] [place] Potassium [Moles/Vol] 3.7 mmol/L Normal 3.7-5.1 [facility] Comment on above: Order Comment: Speci men Type: BLOOD SPECIMEN Performed By: #### 2 777-1, 56452-4, ####[facility]ORYCLIA [id number] [address] [facility] Sodium [Moles/Vol] 146 mmol/L High 136-144 [facility] Comment on above: Order Comment: Speci men Type: BLOOD SPECIMEN Performed By: #### 2 777-1, 40030-8, ####[facility]ORATORYCLIA [id number] [address] Urea nitrogen [Mass/Vol] 16 mg/dL Normal 9-24 [facility] Comment on above: Order Comment: Speci men Type: BLOOD SPECIMEN Performed By: #### 2 777-1, 94371-1, ####[facility]ORATORYCLIA [id number] [address] OF [facility] CASE MGT INIT ASSESon 2021 CASE MGT INIT ASSES Normal [facility] CBC W Auto Differential pane l (Bld)on 05-31-2021 Basophils (Bld) [#/Vol] 0.04 10*3/uL Normal <0.11 [facility] Comment on above: Order Comment: Speci men Type: BLOOD SPECIMEN Performed By: #### 5 7021-8 ####[facility]ATORYCLIA [id number] [address] [place] Basophils/100 WBC (Bld) 0.5 % Normal [facility] Comment on above: Order Comment: Speci men Type: BLOOD SPECIMEN Performed By: #### 5 7021-8 ####[facility]ORYCLIA [id number] [address] Differential cell count method Nom (Bld) Auto Normal [facility] Comment on above: Order Comment: Speci men Type: BLOOD SPECIMEN Performed By: #### 5 7021-8 ####[facility]ATORYCLIA [id number] [address] [place] Eosinophils (Bld) [#/Vol] 0.27 10*3/uL Normal <0.46 [facility] Comment on above: Order Comment: Speci men Type: BLOOD SPECIMEN Performed By: #### 5 7021-8 ####[facility] LABORATORYCLIA [id number] [address] Eosinophils/100 WBC (Bld) 3.3 % Normal [facility] Comment on above: Order Comment: Speci men Type: BLOOD SPECIMEN Performed By: #### 5 7021-8 ####[facility]ORYCLIA [id number] [address] Erythrocyte distribution width (RBC) [Ratio] 15.4 % High 11.5-15.0 [facility] Comment on above: Order Comment: Speci men Type: BLOOD SPECIMEN Performed By: #### 5 7021-8 ####[facility]ATORYCLIA [id number] [address] Hematocrit (Bld) [Volume fraction] 37.9 % Low 39.0-51.0 [facility] Comment on above: Order Comment: Speci men Type: BLOOD SPECIMEN Performed By: #### 5 7021-8 ####[facility]ORYCLIA [id number] [address] Hemoglobin (Bld) [Mass/Vol] 11.5 g/dL Low 13.0-17.0 [facility] Comment on above: Order Comment: Speci men Type: BLOOD SPECIMEN Performed By: #### 5 7021-8 ####[facility]ORYCLIA [id number] [address] IMMATURE GRAN % 0.4 % Normal [facility] Comment on above: Order Comment: Speci men Type: BLOOD SPECIMEN Performed By: #### 5 7021-8 ####[facility]ORYCLIA [id number] [address] IMMATURE GRAN ABS 0.03 k/uL Normal <0.10 [facility] Comment on above: Order Comment: Speci men Type: BLOOD SPECIMEN Performed By: #### 5 7021-8 ####[facility]ATORYCLIA [id number] [address] Lymphocytes (Bld) [#/Vol] 1.90 10*3/uL Normal 1.00-4.00 [facility] Comment on above: Order Comment: Speci men Type: BLOOD SPECIMEN Performed By: #### 5 7021-8 ####[facility]ORYCLIA [id number] [address] Lymphocytes/100 WBC (Bld) 23.0 % Normal [facility] Comment on above: Order Comment: Speci men Type: BLOOD SPECIMEN Performed By: #### 5 7021-8 ####[facility]ATORYCLIA [id number] [address] MCH (RBC) [Entitic mass] 28.0 pg Normal 26.0-34.0 [facility] Comment on above: Order Comment: Speci men Type: BLOOD SPECIMEN Performed By: #### 5 7021-8 ####[facility]ORYCLIA [id number] [address] MCHC (RBC) [Mass/Vol] 30.3 g/dL Low 30.5-36.0 [facility] Comment on above: Order Comment: Speci men Type: BLOOD SPECIMEN Performed By: #### 5 7021-8 ####[facility]ORYCLIA [id number] [address] MCV (RBC) [Entitic vol] 92.4 fL Normal 80.0-100.0 [facility] Comment on above: Order Comment: Speci men Type: BLOOD SPECIMEN Performed By: #### 5 7021-8 ####[facility]ORYCLIA [id number] [address] Monocytes (Bld) [#/Vol] 0.60 10*3/uL Normal <0.87 [facility] Comment on above: Order Comment: Speci men Type: BLOOD SPECIMEN Performed By: #### 5 7021-8 ####[facility]ORYCLIA [id number] [address] Monocytes/100 WBC (Bld) 7.3 % Normal [facility] Comment on above: Order Comment: Speci men Type: BLOOD SPECIMEN Performed By: #### 5 7021-8 ####[facility]ORYCLIA [id number] [address] Neutrophils (Bld) [#/Vol] 5.41 10*3/uL Normal 1.45-7.50 [facility] Comment on above: Order Comment: Speci men Type: BLOOD SPECIMEN Performed By: #### 5 7021-8 ####[facility]ORYCLIA [id number] [address] Neutrophils/100 WBC (Bld) 65.5 % Normal [facility] Comment on above: Order Comment: Speci men Type: BLOOD SPECIMEN Performed By: #### 5 7021-8 ####[facility]ORYCLIA [id number] [address] Nucleated RBC (Bld) [#/Vol] 10*3/uL Normal <0.01 [facility] Comment on above: Order Comment: Speci men Type: BLOOD SPECIMEN Performed By: #### 5 7021-8 ####[facility]ORYCLIA [id number] [address] Nucleated RBC/100 WBC (Bld) [Ratio] 0.0 /100 WBC Normal 0.0 [facility] Comment on above: Order Comment: Speci men Type: BLOOD SPECIMEN Performed By: #### 5 7021-8 ####[facility]ORYCLIA [id number] [address] Platelet mean volume (Bld) [Entitic vol] 9.8 fL Normal 9.0-12.7 [facility] Comment on above: Order Comment: Speci men Type: BLOOD SPECIMEN Performed By: #### 5 7021-8 ####[facility]ATORYCLIA [id number] [address] OF [facility] Platelets (Bld) [#/Vol] 251 10*3/uL Normal 150-400 [facility] Comment on above: Order Comment: Speci men Type: BLOOD SPECIMEN Performed By: #### 5 7021-8 ####[facility]ORATORYCLIA [id number] [address] STATES OF [facility] RBC (Bld) [#/Vol] 4.10 10*6/uL Low 4.20-6.00 [facility] Comment on above: Order Comment: Speci men Type: BLOOD SPECIMEN Performed By: #### 5 7021-8 ####[facility]ORYCLIA [id number] [address] WBC (Bld) [#/Vol] 8.25 10*3/uL Normal 3.70-11.00 [facility] Comment on above: Order Comment: Speci men Type: BLOOD SPECIMEN Performed By: #### 5 7021-8 ####[facility]ORATORYCLIA [id number] [address] CONSULTon 05-31-2021 CONSULT Normal [facility] CONSULT Normal [facility] CONSULT Normal [facility] CT BRAIN WO IVCONon 05-31-[address] BRAIN WO IVCON Normal [facility] CT BRAIN WO IVCON Normal [facility] CT CHEST WO IVCONon 05-31-[address] CHEST WO IVCON Normal [facility] Cortis SerPl-mCncon 05-31-19 22 Cortisol [Mass/Vol] 31.0 ug/dL High AM: 5.3-22.5, PM: 3.4-16.8 [facility] Comment on above: Order Comment: Speci men Type: BLOOD SPECIMEN Result Comment: Prov ided reference range is from 6-10 AM sample collection time.Cortisol Reference Range: 6-10 AM = 4.8-19.5 ug/dL, 4-8 PM = 2.5-11.9 ug/dL Performed By: #### 2 143-6, 3016-3 ####[facility]ORATORYCLIA [id number] [address] Cryptoc Ag Spec Ql LAon 05-08 Cryptococcus sp Ag LA Ql (Unsp spec) Negative Normal [facility] Comment on above: Performed By: #### 4 3228-6 ####[facility]ORATORYCLIA [id number] [address] [place] HISTORY PHYSICALon 2 HISTORY PHYSICAL Normal [facility] Magnesium SerPl-mCncon 05-31 Magnesium [Mass/Vol] 2.2 mg/dL Normal 1.7-2.3 [facility] Comment on above: Order Comment: Speci men Type: BLOOD SPECIMEN Performed By: #### 2 777-1, 69294-5, ####[facility]ORATORYCLIA [id number] [address] NURSING PROGon 05-31-2021 NURSING PROG Normal [facility] NUTRITIONon 05-31-2021 NUTRITION Normal [facility] OPERATIVE NOon 05-31-2021 OPERATIVE NO Normal [facility] Phosphate SerPl-mCncon 05-31 Phosphate [Mass/Vol] 3.3 mg/dL Normal 2.7-4.8 [facility] Comment on above: Order Comment: Speci men Type: BLOOD SPECIMEN Performed By: #### 2 777-1, 53245-2, ####[facility]ORATORYCLIA [id number] [address] STAPH AUREUS PCRon 2 S. aureus and MRSA panel MEGAN+probe (Nose) Normal Negative [facility] Comment on above: Order Comment: Speci men Type: SWAB OF INTERNAL NOSE Result Comment: Nega tive for Staphylococcus aureus by PCR.Negative for MRSA by PCR Performed By: #### S APCR ####[facility] LABORATORYCLIA [id number] [address] [place] TSH SerPl-aCncon 05-31-2021 TSH Qn 0.829 m[IU]/L Normal 0.270-4.200 [facility] Comment on above: Order Comment: Speci men Type: BLOOD SPECIMEN Performed By: #### 2 143-6, 3016-3 ####[facility] LABORATORYCLIA [id number] [place] [address] [place] XR CHEST 1V FRONTALon 2021 XR CHEST 1V FRONTAL Normal [facility] XR CHEST 1V FRONTAL Normal [facility] Blood Cultureon 05-30-2021 Bacteria identified Cx Nom (Bld) Culture Result - No growth 5 days Normal [facility] Comment on above: Performed By: #### C AD #### [facility] [address] [place], [place] [phone] [place] [address] Bacteria identified Cx Nom (Bld) Sp. Request/Comment: - 8.2MLS Culture Result - No growth 5 days Normal [facility] Comment on above: Performed By: #### C AD #### [facility] [address] [place], [place] [phone] [place] [address] C-Reactive Proteinon 022 C-Reactive Protein 1.7 mg/dL High <0.9 [facility] Comment on above: Performed By: #### C RP ####[facility] [address] [place], [place] [phone] CNDSon 05-30-2021 [facility] HNO ID: [id number] Author: Columba Carroll PA-C Service: Hospital Medicine Author Type: Physician Cell Builder Type: Discharge Summary Filed: 05/30/2021 12:49 PM Note Text: ----- Attestation signed by Ayaka Menjivar MD at 06/01/2021 12:53 PM Attending Note I have personally reviewed the PA/INSURANCE AUDITOR note. Agree with above assessment and plan. [...] Team: Attending Provider: Ayaka Menjivar MD Physician Cell Builder: Columba Carroll PA-C Consulting: Lilo Mendoza MD [...] consulted. 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 Tele-neuro also suggested an MRI brain be obtained prior to LP to check SHEET METAL SHOP SUPERVISOR shunt and decrease risk of herniation in neurosurgery capable facility. Transfer to [facility] requested. Sepsis lactate was 1.3. ABG showed pO2 67.8, placed patient on 2L NC.Follow B1, B12, and RPR pending. 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 LABS AND PROCEDURES PENDING [...] q 1 (more content not included)... Normal [facility] CONSULTon 05-30-2021 CONSULT HNO ID: [id number] Author: Juan Carlos Mckenzie MD Service: Infectious [...] or shared electronic medical record. HPI: Andrew Sfiuentes who is a 71 year old male [...] vertebrae with counting from the craniocervical junction. Tuna Purse Seiner: PSCShilpa Transcribe Date/Time: May 29 2021 8:59P Dictated by : CARLOS YOUNGER MD This examination was interpreted and the report reviewed and electronically signed by: CARLOS YOUNGER MD on May 29 2021 9:14PM EST ? CT CERVICAL SPINE WO (more content not included)... Normal [facility] CONSULT HNO ID: [id number] Author: Lilo Mendoza MD Service: Neurology General Author Type: Physician Type: Consults Filed: 05/30/2021 10:56 AM Note Text: [facility] TeleNeurology Consult Note Patient seen using [facility]. Recommendations are placed in the chart. Please review. For questions after hours, when teleneurologist is not available, for AUBURN: Please Page [phone] for the [facility]rology Group from 12pm to 8Am Admitting Provider/Consulted by:Hermes Roca MD Time of Note:05/30/2021 Patient Name:Andrew Sifuentes Admit Date:05/29/2021 Hospital Day:0 CC: altered mental status History of Present Illness: Andrew Sifuentes is a 71 year old unknown handed male with limited information about past medical history including venous insufficiency s/p EVLT, hydrocepalus s/p SHEET METAL SHOP SUPERVISOR shunt in 1987 with multiple revisions [...] Reflexes Right Lef (more content not included)... 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 Age: [age] year old Allergies: ALLERGIES Allergen [...] No results found for: YANDELGHULAM Shannon Gutierres, [facility] ED Normal [facility] Creatinineon 05-30-2021 Creatinine [Mass/Vol] 0.86 mg/dL Normal 0.73-1.22 [facility] Comment on above: Performed By: #### C RET1 ####[facility] [address] [place] [phone] eGFR- Amer. >60 [facility] Comment on above: Performed By: #### C RET1 ####[facility] [address] [place] [phone] eGFR-All Other Races >60 Normal [facility] Comment on above: Result Comment: [...] at [email or web address]. Performed By: #### C RET1 ####[facility] [address] [place] [phone] Crypto Antigen Deton 01-24-2 022 Crypto Antigen Det Sp. Request/Comment: - SST Test Result - Duplicate request Account Credited [facility] Comment on above: Performed By: #### C AD #### [facility] [address] [place] [address] [facility] [address] [place], [place] [address] Crypto Antigen Det Sp. Request/Comment: - SST Test Result - Cryptococcal antigen detection result: Negative By latex agglutination [facility] Comment on above: Performed By: #### C AD #### [facility] [address] [place] [address] [facility] [address] [place] [address] ED NOTEon 05-30-2021 ED NOTE HNO ID: [id number] Author: Aletha Lopez RN Service: ? Author Type: Registered Nurse Type: ED Notes Filed: 05/29/2021 11:16 PM Note Text: Patient changed for incontinent urine, labs redrawn and sent. Patient aware of plan to be admitted and agrees with plan [facility] HISTORY PHYSICALon HISTORY PHYSICAL Normal [facility] HISTORY PHYSICAL HNO ID: [id number] Author: Hermes Roca MD Service: Hospital Medicine Author Type: Physician Type: HANDP Filed: 05/30/2021 1:03 AM Note Text: DEPARTMENT OF HOSPITAL MEDICINE HISTORY AND PHYSICAL EXAM SERVICE DATE: 05/29/2021 SERVICE TIME: 11:18 PM Primary Care Physician: Mateus Burris MD NIGHT AND WEEKEND COVERAGE: Please page [phone] until 7:30am this morning. After 7:30am please check the treatment team banner and page the appropriate service. 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 Normal [facility] Magnesium SerPl-mCncon 05-30 Magnesium [Mass/Vol] 2.5 mg/dL High 1.7-2.3 [facility] Comment on above: Order Comment: Speci men Type: BLOOD SPECIMEN Performed By: #### 1 9123-9, 2777-1 ####[facility] LABORATORYCLIA [id number] [place] [id number] [place] NURSING PROGon 05-30-2021 NURSING PROG HNO ID: [id number] Author: Precious Cervantes RN Service: ? Author Type: Registered Nurse Type: Nursing Progress Note Filed: 05/30/2021 11:26 AM Note Text: Nursing Progress Note Patient Name: Andrew Sifuentes [place] [facility] [id number] Daily Note: 0700- Report received from cnc machinist 2nd shift RN, patient resting in bed at this time, call light within reach, bed low and locked. Asked the patient to state his name because cnc machinist 2nd shift RN was unable to complete [...] This note was completed by: Precious Cervantes [facility] NURSING PROG HNO ID: [id number] Author: Lyubov Day RN Service: ? Author Type: Registered Nurse Type: Nursing Progress Note Filed: 05/30/2021 1:27 AM Note Text: Nursing Progress Note Patient Name: Andrew Sifuentes [place] [facility] [id number] 0100: Patient is unresponsive to questions. Patient [...] note was completed by: Lyubov Day Normal [facility] Phosphate SerPl-mCncon 05-30 Phosphate [Mass/Vol] 3.5 mg/dL Normal 2.7-4.8 [facility] Comment on above: Order Comment: Speci men Type: BLOOD SPECIMEN Performed By: #### 1 9123-9, 2777-1 ####[facility] LABORATORYCLIA [id number] [place] [address] [place] Sepsis Lactateon 05-30-2021 Sepsis Lactate 1.5 mmol/L Normal 0.5-2.0 [facility] Comment on above: Performed By: #### S LACT ####[facility] [address] [place] [phone] Syphilis Ttl w/Reflxon 05-30 Syphilis Interp Cannot exclude recen t Treponemal infection if specimen collected within 7 to 10 days after appearance of suspect lesions or 2 to 3 weeks after an exposure. Clinical correlation is required. Normal [facility] Comment on above: Performed By: #### S Jennifer RUCKERB ####[facility] [place], [place] [phone] Syphilis Screen Rslt Non-Reactive Normal Non Reactive [facility] Comment on above: Performed By: #### S ALKA B1WB ####[facility] [place], [place] [phone] THERAPY NTon 05-30-2021 THERAPY NT HNO ID: [id number] Author: Bette Jimenez OTR/L Service: Occupational Therapy Author Type: Occupational Therapist Type: Therapy (PT/OT/Speech/Resp) Filed: 05/30/2021 10:29 AM Note Text: OCCUPATIONAL THERAPY MISSED VISIT SERVICE DATE: 05/30/2021 SERVICE TIME: 1017 to 1019 ROOM: [place] [address] Attempted Evaluation. Patient not seen due to Not following commands. Per nursing patient was seen by neuro and they are talking about having him transferred to [facility] secondary to shunt concerns. Will re attempt in the event patient continues to be admitted at [facility] and is able to participate. SIGNATURE: RADHA Andres/L PATIENT NAME: Andrew Sifuentes DATE: May 30, 2021 TIME: 10:21 AM [facility] THERAPY NT HNO ID: [id number] Author: Bette Velasquez PT Service: Physical Therapy Author Type: Physical Therapist Type: Therapy (PT/OT/Speech/Resp) Filed: 05/30/2021 8:42 AM Note Text: PHYSICAL THERAPY MISSED VISIT SERVICE DATE: 05/30/2021 SERVICE TIME: 0840 to 0840 ROOM: [place] [address] Attempted Evaluation. Patient not seen due to (pt difficult to awake per RN, very lethargic). Will re-attempt when schedule permits. SIGNATURE: Bette Velasquez PT PATIENT NAME: Andrew Sifuentes DATE: May 30, 2021 TIME: 8:41 AM Normal [facility] Toxicology Screen,Uron 05-30 Amphetamines, Urine Negative Normal Negative [facility] Comment on above: Result Comment: Cuto ff threshold at 1000 ng/mL. Performed By: #### C AD #### [facility] [address] [place] [address] [facility] [address] [place], [place] [address] Barbiturates, Urine Negative Normal Negative [facility] Comment on above: Result Comment: Cuto ff threshold at 200 ng/mL. Performed By: #### C AD #### [facility] [address] [place] [address] [facility] [address] [place] [address] Benzodiazepines, Ur Negative Normal Negative [facility] Comment on above: Result Comment: Cuto ff threshold at 200 ng/mL. Performed By: #### C AD #### [facility] [address] [place] [phone] [place] [address] Cannabinoids, Urine Negative Normal Negative [facility] Comment on above: Result Comment: Cuto ff threshold at 50 ng/mL. Performed By: #### C AD #### [facility] [address] [place], [place] [address] [place] [address] Cocaine, Urine Negative Normal Negative [facility] Comment on above: Result Comment: Cuto ff threshold at 300 ng/mL. Performed By: #### C AD #### [facility] [place] [phone] [place] [address] Opiates, Urine Negative Normal Negative [facility] Comment on above: Result Comment: Cuto ff threshold at 300 ng/mL. Performed By: #### C AD #### [facility] [place] [phone] [place] [address] Oxycodone, Urine Negative Normal Negative [facility] Comment on above: Result [...] on the same specimen through Client Services ([phone]) if contacted within 48 hours of initial testing. [1]Substance Abuse and Mental Health Services Administration (2012). Clinical Drug Testing in Primary Care Technical Assistance Publication Series 32. Department of Health and Human Services, [place], p.10. Performed By: #### C AD #### [facility] [address] [place], [place] [phone] [place] [address] Phencyclidine, Urine Negative Normal Negative [facility] Comment on above: Result Comment: Cuto ff threshold at 25 ng/mL. Performed By: #### C AD #### [facility] [address] [place] [phone] Troponin Ton 05-30-2021 Troponin T <0.010 Normal 0.000-0.029 [facility] Comment on above: Performed By: #### T NT ####[facility] [address] [place], [place] [phone] Urinalysison 05-30-2021 Bilirubin, Urine Negative Normal Negative [facility] Comment on above: Performed By: #### C AD #### [facility] [address] [place], [place] [address] [place] [address] Clarity (U) Slightly Cloudy Critically abnormal Clear [facility] Comment on above: Performed By: #### C AD #### [facility] [address] [place], [place] [address] [place] [address] Color (U) Yellow Normal Yellow [facility] Comment on above: Performed By: #### C AD #### [facility] [address] [place], [place] [address] [place] [address] Glucose Ql (U) Negative Normal Negative [facility] Comment on above: Performed By: #### C AD #### [facility] [address] [place] [address] [facility] [address] [place], [place] [address] Hemoglobin/Blood,Ur Negative Normal Negative [facility] Comment on above: Performed By: #### C AD #### [facility] [address] [place] [address] [facility] [address] [place], [place] [address] Ketones Ql (U) Negative Normal Negative [facility] Comment on above: Performed By: #### C AD #### [facility] [address] [place] [address] [facility] [address] [place] [address] Leukest Negative Normal Negative [facility] Comment on above: Performed By: #### C AD #### [facility] [address] [place] [address] [facility] [address] [place], [place] [address] Nitrite Ql (U) Negative Normal Negative [facility] Comment on above: Performed By: #### C AD #### [facility] [address] [place] [address] [facility] [address] [place], [place] [address] pH (U) 8.5 [pH] High 5.0-8.0 [facility] Comment on above: Performed By: #### C AD #### [facility] [address] [place] [address] [facility] [address] [place], [place] [address] Protein, Urine Negative Normal Negative [facility] Comment on above: Performed By: #### C AD #### [facility] [address] [place] [address] [facility] [address] [place], [place] [address] Specific [place], Ur 1.015 Normal 1.005-1.030 [facility] Comment on above: Performed By: #### C AD #### [facility] [address] [place] [address] [place] [address] [place], [place] [address] Urobilinogen Qn (U) 0.2 {Marianne'U}/dL Normal 0.2-1.0 [facility] Comment on above: Performed By: #### C AD #### [facility] [address] [place] [address] [place] [address] Vitamin B1, Whole Blon 05-30 Vitamin B1 (TDP), WB 207.1 nmol/L Normal 84.0-213.0 [facility] Comment on above: Result Comment: This assay measures the concentration of thiamine diphosphate (TDP), the primary active form of vitamin B1. Approximately 90 percent of vitamin B1 present in whole blood is TDP. Thiamine and thiamine monophosphate, which comprise the remaining 10 percent, are not measured. This test was developed and its performance characteristics determined by [facility]'s Isrrael Perez [facility] Pathology and Laboratory Medicine [place] ( [facility]). It has not been cleared or approved by the FDA. [facility] is regulated under CLIA as qualified to perform high complexity testing. This test is used for clinical purposes. It should not be regarded as investigational or for research. Performed By: #### S YPHTX, B1WB ####[place] [address] [place], [place] [phone] Vitamin B12on 05-30-2021 Cobalamin (Vitamin B12) [Mass/Vol] 494 pg/mL Normal 232-1245 [facility] Comment on above: Performed By: #### C AD #### [facility] [place] [address] [id number] ALLIED HEALTHon 05-29-2021 ALLIED HEALTH HNO ID: [id number] Author: Danica Jose RT(R) Service: Radiology Author [...] RT Kitty(R) May 29, 2021 8:51 PM [facility] HNO ID: [id number] Author: Markie Fish Service: ? Author Type: Measurement Analyst Type: Allied Health Filed: 05/29/2021 8:39 [...] Fish May 29, 2021 8:38 PM Normal [facility] CBC and Differentialon 05-29 Abs Baso 0.05 k/uL Normal <0.11 [facility] Comment on above: Performed By: #### C MP, MG1, CBCDIF ####[facility] [address] [place], [place] [phone] Abs [place] 0.72 k/uL Normal <0.87 [facility] Comment on above: Performed By: #### C MP, MG1, CBCDIF ####[facility] [address] [place] [address] Abs Neut 7.86 k/uL High 1.45-7.50 [facility] Comment on above: Performed By: #### C MP, MG1, CBCDIF ####[place] [address] Absolute nRBC <0.01 Normal <0.01 [facility] Comment on above: Performed By: #### C MP, MG1, CBCDIF ####[facility] [address] [place] [address] Basophils/100 WBC (Bld) 0.5 % Normal [facility] Comment on above: Performed By: #### C MP, MG1, CBCDIF ####[place] [address] DTYPE Auto Diff Normal [facility] Comment on above: Performed By: #### C MP, MG1, CBCDIF ####[place] [address] Eosinophils (Bld) [#/Vol] 0.10 10*3/uL Normal <0.46 [facility] Comment on above: Performed By: #### C MP, MG1, CBCDIF ####[place] [address] Eosinophils/100 WBC (Bld) 0.9 % Normal [facility] Comment on above: Performed By: #### C MP, MG1, CBCDIF ####[place] [address] Erythrocyte distribution width (RBC) [Ratio] 15.5 % High 11.5-15.0 [facility] Comment on above: Performed By: #### C MP, MG1, CBCDIF ####[place] [address] Hematocrit (Bld) [Volume fraction] 41.6 % Normal 39.0-51.0 [facility] Comment on above: Performed By: #### C MP, MG1, CBCDIF ####[facility] [address] [place], [place] [phone] Hemoglobin (Bld) [Mass/Vol] 12.7 g/dL Low 13.0-17.0 [facility] Comment on above: Performed By: #### C MARÍA ELENA MG1, CBCDIF ####[facility] [address] [place] [address] Lymphocytes (Bld) [#/Vol] 2.04 10*3/uL Normal 1.00-4.00 [facility] Comment on above: Performed By: #### C MP MG1, CBCDIF ####[facility] [address] [place] [address] Lymphocytes/100 WBC (Bld) 18.9 % Normal [facility] Comment on above: Performed By: #### C MARÍA ELENA MG1, CBCDIF ####[place] [address] MCH 27.3 pG Normal 26.0-34.0 [facility] Comment on above: Performed By: #### C MARÍA ELENA MG1, CBCDIF ####[place] [address] MCHC (RBC) [Mass/Vol] 30.5 g/dL Normal 30.5-36.0 [facility] Comment on above: Performed By: #### C MP MG1, CBCDIF ####[place] [address] MCV (RBC) [Entitic vol] 89.5 fL Normal 80.0-100.0 [facility] Comment on above: Performed By: #### C MP MG1, CBCDIF ####[facility] [address] [place] [address] Monocytes/100 WBC (Bld) 6.7 % Normal [facility] Comment on above: Performed By: #### C MP, MG1, CBCDIF ####[place] [address] Neutrophils/100 WBC (Bld) 73.0 % Normal [facility] Comment on above: Performed By: #### C MP, MG1, CBCDIF ####[facility] [address] [place] [address] NRBCs 0.0 /100 WBC Normal 0 [facility] Comment on above: Performed By: #### C MP, MG1, CBCDIF ####[facility] [address] [place] [address] Platelet mean volume (Bld) [Entitic vol] 10.1 fL Normal 9.0-12.7 [facility] Comment on above: Performed By: #### C MP, MG1, CBCDIF ####[facility] [address] [place], [place] [address] Platelets (Bld) [#/Vol] 291 10*3/uL Normal 150-400 [facility] Comment on above: Performed By: #### C MP, MG1, CBCDIF ####[facility] [address] [place], [place] [address] RBC (Bld) [#/Vol] 4.65 10*6/uL Normal 4.20-6.00 [facility] Comment on above: Performed By: #### C MP, MG1, CBCDIF ####[facility] [address] [place], [place] [address] WBC (Bld) [#/Vol] 10.77 10*3/uL Normal 3.70-11.00 [facility] Comment on above: Performed By: #### C MP, MG1, CBCDIF ####[facility] [address] [place], [place] [address] CT BRAIN WO IVCONon 05-29-19 CT BRAIN WO IVCON * * *Final Report* * * DATE OF EXAM: May 29 2021 8:42PM [facility] [place] [facility] [place] - CT BRAIN WO IVCON / PROCEDURE REASON: Head trauma, headache * * * * Physician Interpretation * * * * EXAMINATION: CT CERVICAL SPINE WO IVCON, CT BRAIN WO IVCON CLINICAL HISTORY: C-spine trauma, NEXUS/CCR positive (accession [id number]), Head trauma, headache (accession [id number]) TECHNIQUE: Serial axial unenhanced images were obtained from the vertex to the foramen magnum. Spiral, high resolution axial unenhanced images were obtained from the skull base to the cervicothoracic junction with sagittal and coronal planar reconstructions. Dose-Length Product (DLP): 2132 mGy*cm. CT Dose Reduction Employed: Automated exposure control (AEC) COMPARISON: 08/13/[address] 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 The intracranial fragments [...] vertebrae with counting from the craniocervical junction. Tuna Purse Seiner: OG Transcribe Date/Time: May 29 2021 8:59P Dictated by : CARLOS YOUNGER MD This examination was interpreted and the report reviewed and electronically signed by: CARLOS YOUNGER MD on May 29 2021 9:14PM EST [id number] [facility] CT CERVICAL SPINE WO IVCONon 05-29-2021 CT CERVICAL SPINE WO IVCON * * *Final Report* * * DATE OF EXAM: May 29 2021 8:42PM [facility] [place] [facility] 0505 - CT CERVICAL SPINE WO IVCON / PROCEDURE REASON: C-spine trauma, NEXUS/CCR positive * * * * Physician Interpretation * * * * EXAMINATION: CT CERVICAL SPINE WO IVCON, CT BRAIN WO IVCON CLINICAL HISTORY: C-spine trauma, NEXUS/CCR positive (accession [id number]), Head trauma, headache (accession [id number]) TECHNIQUE: Serial axial unenhanced images were obtained from the vertex to the foramen magnum. Spiral, high resolution axial unenhanced images were obtained from the skull base to the cervicothoracic junction with sagittal and coronal planar reconstructions. Dose-Length Product (DLP): 2132 mGy*cm. CT Dose Reduction Employed: Automated exposure control (AEC) COMPARISON: 08/13/[address] 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 The intracranial fragments [...] vertebrae with counting from the craniocervical junction. Tuna Purse Seiner: PSCB Transcribe Date/Time: May 29 2021 8:59P Dictated by : CARLOS YOUNGER MD This examination was interpreted and the report reviewed and electronically signed by: CARLOS YOUNGER MD on May 29 2021 9:14PM EST [id number] [facility] Cepheid Bill only (EXCFR)on 05-29-2021 Cepheid Bill only (EXCFR) Billed for services performed [facility] Comment on above: Performed By: #### C AD #### [facility] [address] [place] [address] [facility] [address] [place], [place] [address] Comp Metabolic Panelon 05-29 Albumin [Mass/Vol] 4.1 g/dL Normal 3.9-4.9 [facility] Comment on above: Performed By: #### C MP ####[facility] [address] [place] [address] ALP [Catalytic activity/Vol] 86 U/L Normal 38-113 [facility] Comment on above: Performed By: #### C MP ####[facility] [address] [place] [address] ALT [Catalytic activity/Vol] 15 U/L Normal 10-54 [facility] Comment on above: Performed By: #### C MP ####[facility] [address] [place] [address] Anion gap [Moles/Vol] 9 mmol/L Normal 9-18 [facility] Comment on above: Performed By: #### C MP ####[facility] [address] [place] [address] AST [Catalytic activity/Vol] 22 U/L Normal 14-40 [facility] Comment on above: Performed By: #### C MP ####[facility] [address] [place] [address] Bilirubin [Mass/Vol] 0.2 mg/dL Normal 0.2-1.3 [facility] Comment on above: Performed By: #### C MP ####[facility] [address] [place] [address] Calcium [Mass/Vol] 9.1 mg/dL Normal 8.5-10.2 [facility] Comment on above: Performed By: #### C MP ####[facility] [address] [place] [address] Chloride [Moles/Vol] 103 mmol/L Normal 97-105 [facility] Comment on above: Performed By: #### C MP ####[facility] [address] [place] [address] CO2 [Moles/Vol] 29 mmol/L Normal 22-30 [facility] Comment on above: Performed By: #### C MP ####[facility] Njgihjjrzf6637 [address] Creatinine [Mass/Vol] 0.89 mg/dL Normal 0.73-1.22 [facility] Comment on above: Performed By: #### C MP ####[facility] [address] [place] [phone] eGFR- Amer. >60 Normal [facility] Comment on above: Performed By: #### C MP ####[facility] Chwdlrivzb2673 [address] eGFR-All Other Races >60 Normal [facility] Comment on above: Result Comment: [...] at [email or web address]. Performed By: #### C MP ####[facility] Nlpswwcklv9217 [address] Glucose [Mass/Vol] 120 mg/dL High 74-99 [facility] Comment on above: Result Comment: The [place] Diabetes Association (ADA) provides guidance for cutoff [...] Standards of Medical Care in Diabetes 2016, [place] Diabetes Association. Diabetes Care. 2016.39(Suppl 1). Performed By: #### C MP ####[facility] [address] [place] [address] Potassium [Moles/Vol] 4.2 mmol/L Normal 3.7-5.1 [facility] Comment on above: Performed By: #### C MP ####[facility] [address] [place] [address] Protein [Mass/Vol] 7.1 g/dL Normal 6.3-8.0 [facility] Comment on above: Performed By: #### C MP ####[place] [address] Sodium [Moles/Vol] 141 mmol/L Normal 136-144 [facility] Comment on above: Performed By: #### C MP ####[facility] [address] [place] [address] Urea nitrogen [Mass/Vol] 11 mg/dL Normal 9-24 [facility] Comment on above: Performed By: #### C MP ####[place] [address] Albumin [Mass/Vol] 4.1 g/dL Normal 3.9-4.9 [facility] Comment on above: Performed By: #### C MP, MG1, CBCDIF ####[facility] [address] [place] [address] ALP [Catalytic activity/Vol] 86 U/L Normal 38-113 [facility] Comment on above: Performed By: #### C MP, MG1, CBCDIF ####[place] [address] ALT Unable to assay due to interference from hemolysis. Suggest reorder as clinically indicated. Normal 10-54 [facility] Comment on above: Result Comment: Call ed to LISA Rea at 2129 on 05.29.21 by Sabino Performed By: #### C MP, MG1, CBCDIF ####[facility] [address] [place] [address] Anion gap [Moles/Vol] 12 mmol/L Normal 9-18 [facility] Comment on above: Performed By: #### C MP, MG1, CBCDIF ####[facility] [address]xhos[address] [place] [address] AST Unable to assay due to interference from hemolysis. Suggest reorder as clinically indicated. Normal 14-40 [facility] Comment on above: Result Comment: Call ed to ED Álvaro at 2129 on 05.29.21 by Sabino Performed By: #### C MP, MG1, CBCDIF ####[facility] [address] [place] [address] Bilirubin [Mass/Vol] 0.2 mg/dL Normal 0.2-1.3 [facility] Comment on above: Performed By: #### C MP, MG1, CBCDIF ####[facility] [address]ty[address] [place] [address] Calcium [Mass/Vol] 9.0 mg/dL Normal 8.5-10.2 [facility] Comment on above: Performed By: #### C MP, MG1, CBCDIF ####[facility] [address] [place] [address] Chloride [Moles/Vol] 102 mmol/L Normal 97-105 [facility] Comment on above: Performed By: #### C MP, MG1, CBCDIF ####[facility] [address]trv[address] [place] [address] CO2 [Moles/Vol] 27 mmol/L Normal 22-30 [facility] Comment on above: Performed By: #### C MP, MG1, CBCDIF ####[facility] [address] [place] [address] Creatinine [Mass/Vol] 0.75 mg/dL Normal 0.73-1.22 [facility] Comment on above: Performed By: #### C MP, MG1, CBCDIF ####[facility] Nsjbqgedwd2502 [address] eGFR- Amer. >60 Normal [facility] Comment on above: Performed By: #### C MP, MG1, CBCDIF ####[facility] [address] [place] [phone] eGFR-All Other Races >60 Normal [facility] Comment on above: Result Comment: [...] Performed By: #### C MP, MG1, CBCDIF ####[facility] [address]tvxwxivst2172 [place] [phone] Glucose [Mass/Vol] 112 mg/dL High 74-99 [facility] Comment on above: Result Comment: The [place] Diabetes Association (ADA) provides guidance for cutoff [...] Standards of Medical Care in Diabetes 2016, [place] Diabetes Association. Diabetes Care. 2016.39(Suppl 1). Performed By: #### C MP, MG1, CBCDIF ####[facility] [address] [place] [phone] Potassium Unable to assay due to interference from hemolysis. Suggest reorder as clinically indicated. Normal 3.7-5.1 [facility] Comment on above: Result Comment: Call ed to ED Álvaro at 2129 on 05.29.21 by Sabino Performed By: #### C MP, MG1, CBCDIF ####[facility] Zhxrogknei0646 [phone] Protein [Mass/Vol] 7.3 g/dL Normal 6.3-8.0 [facility] Comment on above: Performed By: #### C MP, MG1, CBCDIF ####[facility] Hsgfhskeyf6893 [address]721[address] Sodium [Moles/Vol] 141 mmol/L Normal 136-144 [facility] Comment on above: Performed By: #### C MP, MG1, CBCDIF ####[facility] Royurskpas3300 [phone] Urea nitrogen [Mass/Vol] 11 mg/dL Normal 9-24 [facility] Comment on above: Performed By: #### C MP, MG1, CBCDIF ####[facility] Wgkulukbeg3915 [phone] ED PROV NOTEon 05-29-2021 ED PROV NOTE HNO ID: [id number] Author: Shanell Slaughter MD Service: ? Author [...] No radiographic evidence of acute cardiopulmonary disease. Tuna Purse Seiner: [facility] Transcribe Date/Time: May 29 2021 8:53P [...] vertebrae with counting from the craniocervical junction. Tuna Purse Seiner: [facility] Transcribe Date/Time: May 29 2021 8:59P [...] vertebrae with counting from the craniocervical junction. Tuna Purse Seiner: [facility] Transcribe Date/Time: May 29 (more content not included)... 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 Provider Location: [facility] Patient Location: Outpatient Hospital Physical Exam [...] Pandya, DO Flavio Pandya, DO 05/29/211909 Normal [facility] EXCOVD, Flu A/B, RSV (On int erfaces 1102,1120)on 05-29-2021 Influenza A PCR Negative Normal [facility] Comment on above: Performed By: #### C AD #### [facility] [address] [place], [place] [address] [place] [address] Laboratories [address] [place] [address] Influenza B PCR Negative Normal [facility] Comment on above: Performed By: #### C AD #### [facility] [address] [place] [address] RSV PCR Negative Normal [facility] Comment on above: Result Comment: This test has been authorized by [facility] under an Emergency Use Authorization (EUA). Performed By: #### C AD #### [facility] [address] [place] [address] SARS-CoV-2 (COVID-19) RNA MEGAN+probe Ql (Unsp spec) UPPER RESPIRATORY TRACT SWAB Normal [facility] Comment on above: Performed By: #### C AD #### [facility] [address] [place] [address] SARS-CoV-2 (COVID-19) RNA MEGAN+probe Ql (Unsp spec) Negative for COVID19 (SARS CoV2) by RT-PCR or equivalent method. Normal Negative for COVID19 (SARS CoV2) by RT-PCR or equivalent method. [facility] Comment on above: Result Comment: This test has been authorized by [facility] under an Emergency Use Authorization (EUA). Performed By: #### C AD #### [facility] [address] [place] [address] Magnesiumon 05-29-2021 Magnesium [Mass/Vol] 2.2 mg/dL Normal 1.7-2.3 [facility] Comment on above: Performed By: #### C MP, MG1, CBCDIF ####[facility] [address] [place] [phone] NT Pro BNPon 05-29-2021 PRO B Natr Peptide 303 pg/mL High <125 [facility] Comment on above: Performed By: #### N TBNP ####[facility] [address] [place] [phone] Troponin Ton 05-29-2021 Troponin T <0.010 Normal 0.000-0.029 [facility] Comment on above: Performed By: #### T NT ####[facility] [address] [place] [phone] Troponin T Unable to assay due to interference from hemolysis. Suggest reorder as clinically indicated. Normal 0.000-0.029 [facility] Comment on above: Result Comment: Call ed to ED Álvaro at 2129 on 05.29.21 by Sabino Performed By: #### T NT ####[facility] Wptyienkuz8694 [phone] XR CHEST 1V FRONTAL PORTon 0 [...] No radiographic evidence of acute cardiopulmonary disease. Tuna Purse Seiner: OG Transcribe Date/Time: May 29 2021 8:53P Dictated by : ROLY BANGURA MD This examination was interpreted and the report reviewed and electronically signed by: ROLY BANGURA MD on May 29 2021 8:54PM EST [id number] Normal [facility] COMPREHENSIVE PANELon 2020 Albumin [Mass/Vol] 3.9 g/dL Normal 3.4 - 5.0 [facility] Comment on above: Order Comment: PATIE NT FASTING Performed By: #### C MP #### [facility] [address] [place] [address] ALP [Catalytic activity/Vol] 71 U/L Normal 33 - 136 [facility] Comment on above: Order Comment: PATIE NT FASTING Performed By: #### C MP #### [facility] [address] [place] [address] ALT [Catalytic activity/Vol] 19 U/L Normal 10 - 52 [facility] Comment on above: Order Comment: PATIE NT FASTING Result Comment: Nasima ents treated with Sulfasalazine may generate falsely decreased results for ALT. Performed By: #### C MP #### [facility] [address] [place] [address] Anion gap [Moles/Vol] 13 mmol/L Normal 10 - 20 [facility] Comment on above: Order Comment: PATIE NT FASTING Performed By: #### C MP #### [facility] [address] [place] [address] AST [Catalytic activity/Vol] 20 U/L Normal 9 - 39 [facility] Comment on above: Order Comment: PATIE NT FASTING Performed By: #### C MP #### [facility] [address] [place] [address] Bilirubin [Mass/Vol] 0.6 mg/dL Normal 0.0 - 1.2 [facility] Comment on above: Order Comment: PATIE NT FASTING Performed By: #### C MP #### [facility] [address] [place] [address] Calcium [Mass/Vol] 9.0 mg/dL Normal 8.6 - 10.6 [facility] Comment on above: Order Comment: PATIE NT FASTING Performed By: #### C MP #### [facility] [address] [place] [address] Chloride [Moles/Vol] 103 mmol/L Normal 98 - 107 [facility] Comment on above: Order Comment: PATIE NT FASTING Performed By: #### C MP #### [facility] [address] [place] [address] Creatinine [Mass/Vol] 0.94 mg/dL Normal 0.50 - 1.30 [facility] Comment on above: Order Comment: PATIE NT FASTING Performed By: #### C MP #### [facility] [address] [place] [address] GFR- AM. >60 Normal >60 [facility] Comment on above: Order Comment: PATIE NT FASTING Result Comment: CALC ULATIONS OF ESTIMATED GFR ARE PERFORMED USING THE MDRD STUDY EQUATION FOR THE IDMS-TRACEABLE CREATININE METHODS. CLIN CHEM 2007;53:766-72 Performed By: #### C MP #### [facility] [address] [place] [address] GFR-NON AM. >60 Normal >60 [facility] Comment on above: Order Comment: PATIE NT FASTING Performed By: #### C MP #### [facility] [address] [place] [address] Glucose [Mass/Vol] 85 mg/dL Normal 74 - 99 [facility] Comment on above: Order Comment: PATIE NT FASTING Performed By: #### C MP #### [facility] [address] [place] [address] HCO3 (Bld) [Moles/Vol] 30 mmol/L Normal 21 - 32 [facility] Comment on above: Order Comment: PATIE NT FASTING Performed By: #### C MP #### [facility] [address] [place] [address] Potassium [Moles/Vol] 4.1 mmol/L Normal 3.5 - 5.3 [facility] Comment on above: Order Comment: PATIE NT FASTING Performed By: #### C MP #### [facility] [address] [place] [address] Protein [Mass/Vol] 6.6 g/dL Normal 6.4 - 8.2 [facility] Comment on above: Order Comment: PATIE NT FASTING Performed By: #### C MP #### [facility] [address] [place] [address] Sodium [Moles/Vol] 142 mmol/L Normal 136 - 145 [facility] Comment on above: Order Comment: PATIE NT FASTING Performed By: #### C MP #### [facility] [address] [place] [address] Urea nitrogen [Mass/Vol] 14 mg/dL Normal 6 - 23 [facility] Comment on above: Order Comment: PATIE NT FASTING Performed By: #### C MP #### [facility] [address] [place] [address] LIPID PANEL (CORONARY RISK 2 )on 09-03-2020 Cholesterol [Mass/Vol] 210 mg/dL High 0 - 199 [facility] Comment on above: Order Comment: PATIE [...] Performed By: #### L IPID #### [facility] [address] [place] [address] Cholesterol in HDL [Mass/Vol] 50.1 mg/dL Normal [facility] Comment on above: Order Comment: PATIE NT FASTING Result Comment: . AGE VERY LOW LOW NORMAL HIGH 0-19 Y < 35 < 40 40-45 ---- 20-24 Y ---- < 40 >45 ---- >24 Y ---- < 40 40-60 >60 . Performed By: #### L IPID #### [facility] [address] [place] [address] Cholesterol in LDL [Mass/Vol] 130 mg/dL High 0 - 99 [facility] Comment on above: Order Comment: PATIE NT FASTING Result Comment: . NEAR BORD AGE DESIRABLE OPTIMAL HIGH HIGH VERY HIGH 0-19 Y 0 - 109 --- 110-129 >/= 130 ---- 20-24 Y 0 - 119 --- 120-159 >/= 160 ---- >24 Y 0 - 99 100-129 130-159 160-189 >/=190 . Performed By: #### L IPID #### [facility] [address] [place] [address] Cholesterol in VLDL [Mass/Vol] 30 mg/dL Normal 0 - 40 [facility] Comment on above: Order Comment: PATIE NT FASTING Performed By: #### L IPID #### [facility] [address] [place] [address] Cholesterol.total/Chol esterol in HDL [Mass ratio] 4.2 {ratio} Normal [facility] Comment on above: Order Comment: PATIE NT FASTING Result Comment: REF VALUES DESIRABLE < 3.4 HIGH RISK > 5.0 Performed By: #### L IPID #### [facility] [address] [place] [address] Triglyceride [Mass/Vol] 152 mg/dL High 0 - 149 [facility] Comment on above: Order Comment: PATIE [...] Performed By: #### L IPID #### [facility] [address] [place] [address] PROSTATE SPEC.AG,SCREENon PROSTATE SPEC.AG,SCREEN 0.37 ng/mL Normal 0.00 - 4.00 [facility] Comment on above: Order Comment: PATIE NT FASTING Result Comment: The FDA requires that the method used for PSA assay be reported to the physician. Values obtained with different assay methods must not be used interchangeably. This test was performed at [facility] using the [employer] PSA method, which is a sandwich immunoassay using chemiluminescence for quantitation. The assay is approved for measurement of prostate-specific antigen (PSA) in serum and may be used in conjunction with a digital rectal examination in men 50 years and older as an aid in detection of prostate cancer. 6-Xwxhg-qwbjdkfnw inhibitors (e.g. Proscar, Finasteride, Avodart, Dutasteride and Elizabeth) for the treatment of BPH have been shown to lower PSA levels by an average of 50% after 6 months of treatment. Performed By: #### P [facility] #### [facility] [address] [place] [address] TSH WITH REFLEX TO FREE T4 I F ABNORMALon 09-03-2020 TSH Qn 0.97 m[IU]/L Normal 0.44 - 3.98 [facility] Comment on above: Order Comment: PATIE NT FASTING Result Comment: TSH testing is performed using different testing methodology at [facility] than at other [facility]. Direct result comparisons should only be made within the same method. Performed By: #### T HYDS #### [facility] [address] [place] [address] CBC AND DIFFERENTIALon 09-02 % AUTOMATED IMMATURE GRAN 0.3 % Normal 0.0 - 0.9 [facility] Comment on above: Order Comment: PATIE NT FASTING Result Comment: [place] Granulocyte Count (IG) includes promyelocytes, myelocytes and metamyelocytes but does not include bands. Percent differential counts (%) should be interpreted in the context of the absolute cell counts (cells/L). Performed By: #### C BCDF #### [facility] [address] [place] [address] Basophils (Bld) [#/Vol] 0.07 10*3/uL Normal 0.00 - 0.10 [facility] Comment on above: Order Comment: PATIE NT FASTING Result Comment: Auto mated WBC differential has been confirmed by manual smear. Performed By: #### C BCDF #### [facility] [address] [place] [address] Basophils/100 WBC (Bld) 0.9 % Normal 0.0 - 2.0 [facility] Comment on above: Order Comment: PATIE NT FASTING Performed By: #### C BCDF #### [facility] [address] [place] [address] Eosinophils (Bld) [#/Vol] 0.21 10*3/uL Normal 0.00 - 0.70 [facility] Comment on above: Order Comment: PATIE NT FASTING Performed By: #### C BCDF #### [facility] [address] [place] [address] Eosinophils/100 WBC (Bld) 2.8 % Normal 0.0 - 6.0 [facility] Comment on above: Order Comment: PATIE NT FASTING Performed By: #### C BCDF #### [facility] [address] [place] [address] Lymphocytes (Bld) [#/Vol] 2.28 10*3/uL Normal 1.20 - 4.80 [facility] Comment on above: Order Comment: PATIE NT FASTING Performed By: #### C BCDF #### [facility] [address] [place] [address] Lymphocytes/100 WBC (Bld) 30.9 % Normal 13.0 - 44.0 [facility] Comment on above: Order Comment: PATIE NT FASTING Performed By: #### C BCDF #### [facility] [address] [place] [address] Monocytes (Bld) [#/Vol] 0.50 10*3/uL Normal 0.10 - 1.00 [facility] Comment on above: Order Comment: PATIE NT FASTING Performed By: #### C BCDF #### [facility] [address] [place] [address] Monocytes/100 WBC (Bld) 6.8 % Normal 2.0 - 10.0 [facility] Comment on above: Order Comment: PATIE NT FASTING Performed By: #### C BCDF #### [facility] [address] [place] [address] Neutrophils (Bld) [#/Vol] 4.29 10*3/uL Normal 1.20 - 7.70 [facility] Comment on above: Order Comment: PATIE NT FASTING Performed By: #### C BCDF #### [facility] [address] [place] [address] Neutrophils/100 WBC (Bld) 58.3 % Normal 40.0 - 80.0 [facility] Comment on above: Order Comment: PATIE NT FASTING Performed By: #### C BCDF #### [facility] [address] [place] [address] Erythrocyte distribution width (RBC) [Ratio] 14.6 % High 11.5 - 14.5 [facility] Comment on above: Order Comment: PATIE NT FASTING Performed By: #### C BCDF #### [facility] [address] [place] [address] Hematocrit (Bld) [Volume fraction] 43.1 % Normal 41.0 - 52.0 [facility] Comment on above: Order Comment: PATIE NT FASTING Performed By: #### C BCDF #### [facility] [address] [place] [address] Hemoglobin (Bld) [Mass/Vol] 13.3 g/dL Low 13.5 - 17.5 [facility] Comment on above: Order Comment: PATIE NT FASTING Performed By: #### C BCDF #### [facility] [address] [place] [address] MCHC (RBC) [Mass/Vol] 30.9 g/dL Low 32.0 - 36.0 [facility] Comment on above: Order Comment: PATIE NT FASTING Performed By: #### C BCDF #### [facility] [address] [place] [address] MCV (RBC) [Entitic vol] 92 fL Normal 80 - 100 [facility] Comment on above: Order Comment: PATIE NT FASTING Performed By: #### C BCDF #### [facility] [address] [place] [address] NUCLEATED RBC 0.0 /100 WBC Normal 0.0-0.0 [facility] Comment on above: Order Comment: PATIE NT FASTING Performed By: #### C BCDF #### [facility] [address] [place] [address] Platelets (Bld) [#/Vol] 267 10*3/uL Normal 150 - 450 [facility] Comment on above: Order Comment: PATIE NT FASTING Performed By: #### C BCDF #### [facility] [address] [place] [address] RBC 4.69 x10E12/L Normal 4.50 - 5.90 [facility] Comment on above: Order Comment: PATIE NT FASTING Performed By: #### C BCDF #### [facility] [address] [place] [address] WBC (Bld) [#/Vol] 7.4 10*3/uL Normal 4.4 - 11.3 [facility] Comment on above: Order Comment: PATIE NT FASTING Performed By: #### C BCDF #### [facility] [address] [place] [address] RED CELL MORPHOLOGYon 2020 CHANELL CELLS Few Normal [facility] Comment on above: Order Comment: PATIE NT FASTING Performed By: #### M ORP2 #### [facility] [address] [place] [address] OVALOCYTES Few Normal [facility] Comment on above: Order Comment: PATIE NT FASTING Performed By: #### M ORP2 #### [facility] [address] [place] [address] POLYCHROMASIA Mild Normal [facility] Comment on above: Order Comment: PATIE NT FASTING Performed By: #### M ORP2 #### [facility] [address] [place] [address] RBC FRAGMENTS Few Normal [facility] Comment on above: Order Comment: PATIE NT FASTING Performed By: #### M ORP2 #### [facility] [address] [place] [address] RBC morphology finding Nom (Bld) See Below Normal [facility] Comment on above: Order Comment: PATIE NT FASTING Performed By: #### M ORP2 #### [facility] [address] [place] [address] No Panel Informationon 01-19 76 1 MP-Cardiolo [...] [place] Work Phone: [email or web address] ?RetrieveTestByDateTime?[email or web address]&Date=1 09-13-2019&Time=15%3a11%3a 03%3a00&TestType=ECG&Site =1&OutputType=PDF&Ext=PDF [facility]-Cardiolo gy-[facility] [address] [place] Work Phone: Otheron 11-13-2019 [facility] Complete Blood Count + Diffe rentialon 11-06-2019 Basophils (Bld) [#/Vol] 0.06 {x10E9/L} See Below [facility] Work Phone: Comment on above: Reference Range: 0.0 0 - 0.10 Basophils/100 WBC (Bld) 0.8 % 0.0 - 2.0 [facility] Work Phone: Eosinophils (Bld) [#/Vol] 0.18 {x10E9/L} See Below [facility] Work Phone: Comment on above: Reference Range: 0.0 0 - 0.70 Eosinophils/100 WBC (Bld) 2.5 % 0.0 - 6.0 [facility] Work Phone: Erythrocyte distribution width (RBC) [Ratio] 13.7 % See Below [facility] Work Phone: Comment on above: Reference Range: 11. 5 - 14.5 Hematocrit (Bld) [Volume fraction] 45.5 % See Below [facility] Work Phone: Comment on above: Reference Range: 41. 0 - 52.0 Hemoglobin (Bld) [Mass/Vol] 14.0 g/dL See Below [facility] Work Phone: Comment on above: Reference Range: 13. 5 - 17.5 Lymphocytes (Bld) [#/Vol] 2.15 {x10E9/L} See Below [facility] Work Phone: Comment on above: Reference Range: 1.2 0 - 4.80 Lymphocytes/100 WBC (Bld) 29.9 % See Below [facility] Work Phone: Comment on above: Reference Range: 13. 0 - 44.0 MCHC (RBC) [Mass/Vol] 30.8 g/dL below low threshold See Below [facility] Work Phone: Comment on above: Reference Range: 32. 0 - 36.0 MCV (RBC) [Entitic vol] 94 fL 80 - 100 [facility] Work Phone: Monocytes (Bld) [#/Vol] 0.49 {x10E9/L} See Below [facility] Work Phone: Comment on above: Reference Range: 0.1 0 - 1.00 Monocytes/100 WBC (Bld) 6.8 % 2.0 - 10.0 [facility] Work Phone: Neutrophils (Bld) [#/Vol] 4.30 {x10E9/L} See Below [facility] Work Phone: Comment on above: Reference Range: 1.2 0 - 7.70 Neutrophils/100 WBC (Bld) 59.9 % See Below [facility] Work Phone: Comment on above: Reference Range: 40. 0 - 80.0 Platelets (Bld) [#/Vol] 270 {x10E9/L} 150 - 450 [facility] Work Phone: RBC (Bld) [#/Vol] 4.85 {x10E12/L} See Below [facility] Work Phone: Comment on above: Reference Range: 4.5 0 - 5.90 WBC (Bld) [#/Vol] 0.0 {/100_WBC} 0.0-0.0 [facility] Work Phone: WBC (Bld) [#/Vol] 7.2 {x10E9/L} 4.4 - 11.3 [facility] Work Phone: Complete Blood Count + Differential 0.1 % 0.0 - 0.9 [facility] Work Phone: Comment on above: Immature Granulocyte Count (IG) includes promyelocytes, myelocytes and metamyelocytes but does not include bands. Percent differential counts (%) should be interpreted in the context of the absolute cell counts (cells/L). Lipid Panelon 11-06-2019 Cholesterol [Mass/Vol] 181 mg/dL 0 - 199 [facility] Work Phone: Comment on [...] dosing. Cholesterol in HDL [Mass/Vol] 52.1 mg/dL [facility] Work Phone: Comment on above: . AGE VERY LOW LOW N ORMAL HIGH 0-19 Y < 35 < 40 40-45 ---- 20-24 Y ---- < 40 >45 ---- >24 Y ---- < 40 40-60 >60. Cholesterol in LDL [Mass/Vol] 97 mg/dL 0 - 99 [facility] Physician [facility] Work Phone: Comment on above: . NEAR BORD AGE IZABELLA RABLE OPTIMAL HIGH HIGH VERY HIGH 0-19 Y 0 - 109 --- 110-129 >/= 130 ---- 20-24 Y 0 - 119 --- 120-159 >/= 160 ---- >24 Y 0 - 99 100-129 130-159 160-189 >/=190. Cholesterol.total/Chol esterol in HDL [Mass ratio] 3.5 {ratio} [facility] Work Phone: Comment on above: REF VALUESDESIRABLE < 3.4HIGH RISK > 5.0 Triglyceride [Mass/Vol] 158 mg/dL above high threshold 0 - 149 [facility] Work Phone: Comment on above: . [...] [Catalytic activity/Vol] 70 U/L 33 - 136 [facility] Work Phone: Anion gap [Moles/Vol] 13 mmol/L 10 - 20 [facility] Physician [facility] Work Phone: Bilirubin [Mass/Vol] 0.6 mg/dL 0.0 - 1.2 [facility] Physician [facility] Work Phone: Calcium [Mass/Vol] 9.4 mg/dL 8.6 - 10.6 [facility] Work Phone: Chloride [Moles/Vol] 99 mmol/L 98 - 107 [facility] Physician [facility] Work Phone: CO2 [Moles/Vol] 30 mmol/L 21 - 32 [facility] Physician [facility] Work Phone: Creatinine [Mass/Vol] 0.87 mg/dL See Below [facility] Physician [facility] Work Phone: Comment on above: Reference Range: 0.5 0 - 1.30 Glucose [Mass/Vol] 89 mg/dL 74 - 99 [facility] Work Phone: Potassium [Moles/Vol] 4.3 mmol/L 3.5 - 5.3 [facility] Physician [facility] Work Phone: Protein [Mass/Vol] 7.3 g/dL 6.4 - 8.2 [facility] Work Phone: Sodium [Moles/Vol] 138 mmol/L 136 - 145 [facility] Work Phone: Urea nitrogen [Mass/Vol] 14 mg/dL 6 - 23 [facility] Work Phone: Otheron 11-06-2019 Albumin BCP dye [Mass/Vol] 4.4 g/dL 3.4 - 5.0 [facility] Work Phone: ALT With P-5'-P [Catalytic activity/Vol] 11 U/L 10 - 52 [facility] Work Phone: Comment on above: Patients treated wit h Sulfasalazine may generate falsely decreased results for ALT. AST With P-5'-P [Catalytic activity/Vol] 17 U/L 9 - 39 [facility] Work Phone: >60 >60 [facility] Work Phone: Comment on above: CALCULATIONS OF LUZMARIA MATED GFR ARE PERFORMED USING THE MDRD STUDY EQUATION FOR THE IDMS-TRACEABLE CREATININE METHODS. CLIN CHEM 2007;53:766-72 Culture, urine Bacteria identified Cx Nom (U) Mixed Gram Pos & Gram Neg Org [facility] Work Phone: Bacteria identified Cx Nom (U) Klebsiella pneumoniae sp pneum [facility] Work Phone: Vital Signs Date Time Vital Sign Value Performing Clinician Facility 09-13-2023 11:48-0400 Body height 175.3 cm Rebecca Buck MD Work Phone: [facility] 09-13-2023 11:48-0400 Body mass index (BMI) [Ratio] 25.84 kg/m2 Rebecca Buck MD Work Phone: [facility] 09-13-2023 11:48-0400 Body weight 79.38 kg Rebecca Buck MD Work Phone: [facility] 08-13-2023 09:56-0400 Body height 175.3 cm Rebecca Buck MD Work Phone: [facility] 08-13-2023 09:56-0400 Body mass index (BMI) [Ratio] 25.84 kg/m2 Rebecca Buck MD Work Phone: [facility] 08-13-2023 09:56-0400 Body weight 79.38 kg Rebecca Buck MD Work Phone: [facility] 03-02-2022 18:49-0400 Body temperature 98.01 [degF] Lanette Munguia DO Work Phone: [facility] 03-02-2022 18:49-0400 Diastolic blood pressure 72 mm[Hg] Lanette Munguia DO Work Phone: [email or web address] 03-02-2022 18:49-0400 Heart rate 94 /min Lanette Munguia DO Work Phone: [email or web address] 03-02-2022 18:49-0400 Respiratory rate 18 /min Lanette Munguia DO Work Phone: [email or web address] 03-02-2022 18:49-0400 SaO2% (BldA) [Mass fraction] 98 % Lanette Munguia DO Work Phone: [email or web address] 03-02-2022 18:49-0400 Systolic blood pressure 104 mm[Hg] Lanette Munguia DO Work Phone: [facility] 03-02-2022 11:55-0400 Body height 175.3 cm Lanette Munguia DO Work Phone: [email or web address] 03-02-2022 11:55-0400 Body mass index (BMI) [Ratio] 25.84 kg/m2 Lanette Munguia DO Work Phone: [email or web address] 03-02-2022 11:55-0400 Body weight 79.38 kg Lanette Munguia DO Work Phone: [facility] 12-22-2021 02:08-0400 Diastolic blood pressure 67 mm[Hg] Sharon Olivia MD Work Phone: [email or web address] 12-22-2021 02:08-0400 Heart rate 77 /min Sharon Olivia MD Work Phone: [email or web address] 12-22-2021 02:08-0400 Respiratory rate 16 /min Sharon Olivia MD Work Phone: [facility] 12-22-2021 02:08-0400 SaO2% (BldA) [Mass fraction] 96 % Sharon Olivia MD Work Phone: [facility] 12-22-2021 02:08-0400 Systolic blood pressure 108 mm[Hg] Sharon Olivia MD Work Phone: [facility] 12-21-2021 23:52-0400 Body height 175.3 cm Sharon Olivia MD Work Phone: [facility] 12-21-2021 23:52-0400 Body mass index (BMI) [Ratio] 25.84 kg/m2 Sharon Olivia MD Work Phone: [facility] 12-21-2021 23:52-0400 Body temperature 97.9 [degF] Sharon Olivia MD Work Phone: [facility] 12-21-2021 23:52-0400 Body weight 79.38 kg Sharon Olivia MD Work Phone: [facility] 11-01-2021 08:41-0400 Diastolic blood pressure 77 mm[Hg] Dante Kim MD Work Phone: [facility] 11-01-2021 08:41-0400 Heart rate 75 /min Dante Kim MD Work Phone: [facility] 11-01-2021 08:41-0400 Respiratory rate 16 /min Dante Kim MD Work Phone: [facility] 11-01-2021 08:41-0400 SaO2% (BldA) [Mass fraction] 97 % Dante Kim MD Work Phone: [facility] 11-01-2021 08:41-0400 Systolic blood pressure 112 mm[Hg] Dante Kim MD Work Phone: [facility] 10-31-2021 19:13-0400 Body height 177.8 cm Dante Kim MD Work Phone: [facility] 10-31-2021 19:13-0400 Body mass index (BMI) [Ratio] 27.26 kg/m2 Dante Kim MD Work Phone: [facility] 10-31-2021 19:13-0400 Body temperature 98.49 [degF] Dante Kim MD Work Phone: [facility] 10-31-2021 19:13-0400 Body weight 86.18 kg Dante Kim MD Work Phone: [facility] 10-29-2021 07:38-0400 Body temperature 97.81 [degF] Lisa Miguel Angel DO Work Phone: [facility] 10-29-2021 07:38-0400 Diastolic blood pressure 79 mm[Hg] Lisa Miguel Angel DO Work Phone: [facility] 10-29-2021 07:38-0400 Heart rate 80 /min Lisa Miguel Angel DO Work Phone: [facility] 10-29-2021 07:38-0400 Respiratory rate 18 /min Lisa Miguel Angel DO Work Phone: [facility] 10-29-2021 07:38-0400 SaO2% (BldA) [Mass fraction] 96 % Lisa Miguel Angel DO Work Phone: [facility] 10-29-2021 07:38-0400 Systolic blood pressure 123 mm[Hg] Lisa Miguel Angel DO Work Phone: [facility] 10-25-2021 13:55-0400 Body height 170.2 cm Lisa Miguel Angel DO Work Phone: [facility] 10-21-2021 00:57-0400 Body mass index (BMI) [Ratio] 37.58 kg/m2 Lisa Miguel Angel DO Work Phone: [facility] 10-21-2021 00:57-0400 Body weight 108.86 kg Lisa Miguel Angel DO Work Phone: [facility] 07-13-2020 13:21-0500 BMI (Body Mass Index) 40.47 kg/m2 Monika Staley [facility] Physician [facility] Work Phone: 07-13-2020 13:21-0500 Body Temperature 98 [degF] Monika Staley [facility] Physician [facility] Work Phone: 07-13-2020 13:21-0500 Body weight 124.31 kg Monika Staley [facility] Physician [facility] Work Phone: 07-13-2020 13:21-0500 BP Diastolic 78 [...] Source: 04-13-2020 15:33-0500 0 1 [address] Ritter [facility] Work Phone: Comment on above: Pain Scale 01-20-2020 16:39-0400 Body height 175.26 cm Monika Staley MD [facility] [address] [place] Work Phone: 01-20-2020 16:39-0400 Body mass index (BMI) [Ratio] 39.28 kg/m2 Monika Staley MD [place]-Vothzkqvnf-Msh russ [address] [place] Work Phone: 01-20-2020 16:39-0400 Body surface area Derived from formula 2.33 m2 Monika Staley MD OL-Rvtfacorif-Wxw russ 140 [place] Work Phone: 01-20-2020 16:39-0400 Body weight 120.66 kg Monika Staley MD [facility] [address] [place] Work Phone: 01-20-2020 16:39-0400 Diastolic blood pressure 84 mm[Hg] Monika Staley MD KN-Djfzbkjkfr-Yhx russ [address] [place] Work Phone: Comment on above: Location: [facility]; Position: Sitting 01-20-2020 16:39-0400 Heart rate 80 /min Monika Staley MD [facility] [address] [place] Work Phone: 01-20-2020 16:39-0400 SaO2% (BldA) [Mass fraction] 100 % Monika Staley MD CO-Zoikxxdvjn-Ehj russ [address] [place] Work Phone: Comment on above: Source: 01-20-2020 16:39-0400 Systolic blood pressure 144 mm[Hg] Monika Staley MD JZ-Swkgdfdqjl-Zhh russ [address] [place] Work Phone: Comment on above: Location: R[facility]; Position: Sitting 11-06-2019 15:29-0400 BMI (Body Mass Index) 38.31 kg/m2 [facility] Work Phone: 11-06-2019 15:29-0400 Body Temperature 97.6 [degF] Monika Staley [facility] Work Phone: 11-06-2019 15:29-0400 Body weight 117.66 kg Monika Staley [facility] Work Phone: 11-06-2019 15:29-0400 BP Diastolic 62 mm[Hg] Monika Staley [facility] Work Phone: 11-06-2019 15:29-0400 BP Systolic 140 mm[Hg] Monika Staley [facility] Work Phone: 11-06-2019 15:29-0400 BSA (Body Surface Area) 2.31 m2 Monika Staley [facility] Work Phone: 11-06-2019 15:29-0400 Height 175.26 cm Monika Staley [facility] Work Phone: Encounters Encounter Date Encounter Type Care Provider Facility Start: 03-16-2025 ambulatory Carlos Lópezsaros OLS Faci lity:[facility] Start: 03-13-2025 ambulatory Carlos Katsaros OLS Faci lity:[facility] Start: 03-12-2025 ambulatory Mahaveer Mukka flash OLS Facility:[facility] Start: 03-11-2025 ambulatory Carlos Katsaros OLS Faci lity:[facility] Start: 03-09-2025 ambulatory Mahaveer Mukka flash OLS Facility:[facility] Start: 03-05-2025 ambulatory Mahaveer Mukka flash OLS Facility:[facility] Start: 03-02-2025 ambulatory Peter Katsaros OLS Faci lity:[facility] Start: 02-26-2025 ambulatory Mahaveer Mukka flash OLS Facility:[facility] Start: 02-23-2025 ambulatory Mahaveer Mukka flash OLS Facility:[facility] Start: 02-19-2025 ambulatory Mahaveer Mukka flash OLS Facility:[facility] Start: 02-16-2025 End: 02-16-2025 ambulatory Karon Delacruzlla OLS Facility:[facility] Start: 02-12-2025 Registered [facility] Start: 02-12-2025 End: 02-12-2025 ambulatory Karon Delacruzlla OLS Facility:[facility] Start: 02-09-2025 Registered Referred Carlos Cavazos - [facility] [employer] Start: 02-09-2025 ambulatory Carlos Cavazos OLS Faci lity:[facility] Start: 02-05-2025 Registered Referred [facility] [employer] Start: 02-05-2025 End: 02-05-2025 ambulatory Karon Delacruzlla OLS Facility:[facility] Start: 02-02-2025 Registered Referred [facility] [employer] Start: 02-02-2025 End: 02-02-2025 ambulatory Karon Delacruzlla OLS Facility:[facility] Start: 01-29-2025 Registered Referred [facility] [employer] Start: 01-29-2025 End: 01-29-2025 ambulatory Karon Delacruzlla OLS Facility:[facility] Start: 01-26-2025 Registered Referred [facility] [employer] Start: 01-26-2025 End: 01-26-2025 ambulatory aKron Delacruzlla OLS Facility:[facility] Start: 01-22-2025 Registered Referred [facility] [employer] Start: 01-22-2025 End: 01-22-2025 [facility] Start: 01-19-2025 Registered Referred Carlos Cavazos - [employer] Start: 01-19-2025 End: 01-19-2025 ambulatory Carlos Cavazos OLS Facility:[facility] Start: 01-15-2025 Registered Referred [facility] [employer] Start: 01-15-2025 End: 01-15-2025 ambulatory Karon Farmera OLS Facility:[facility] Start: 01-12-2025 Registered Referred Karon casillas MD -[facility] Start: 01-12-2025 End: 01-12-2025 ambulatory Karon Farmera OLS Facility:[facility] Start: 01-08-2025 Registered Referred Karon casillas MD -[facility] [employer] Start: 01-08-2025 End: 01-08-2025 ambulatory Karon Farmera OLS Facility:[facility] Start: 01-06-2025 Registered Referred Karon casillas MD -[employer] Start: 01-06-2025 End: 01-06-2025 ambulatory Karon Delacruzmarlenea OLS Facility:[facility] Start: 01-01-2025 End: 01-01-[address] Monika Staley MD Work Phone: -[facility] [employer] Start: 01-01-2025 End: 01-01-2025 Departed Referred Karon Corrales MD -[facility] [employer] Start: 01-01-2025 Registered Referred Karon casillas MD -[employer] Start: 01-01-2025 End: 01-01-2025 ambulatory Carlavilmanoe Delacruzmarlenevanessa OLS Facility:[facility] Start: 12-29-2024 Registered Referred Carlos Cavazos - [employer] Start: 12-29-2024 End: 12-29-2024 ambulatory Carlos Marbielkameron OLS Facility:[facility] Start: 12-26-2024 End: 12-26-[address] Monika Staley MD Work Phone: -[facility] [employer] Start: 12-26-2024 End: 12-26-2024 Departed Referred Karon Corrales MD -[facility] [employer] Start: 12-26-2024 Registered Referred Karon casillas MD -[employer] Start: 12-26-2024 End: 12-26-2024 ambulatory Karon Delacruzlla OLS Facility:[facility] Start: 12-25-2024 Registered Referred [facility] [employer] Start: 12-24-2024 End: 12-25-2024 ambulatory Mahavenoe Hernandezkkminglla OLS Facility:[facility] Start: 12-24-2024 Registered Referred Carlos Cavazos - [employer] Start: 12-22-2024 ambulatory Karon Hernandezkka flash OLS Facility:[facility] Start: 12-22-2024 Registered Referred Karon casillas MD -[employer] Start: 12-18-2024 Registered Referred [facility] [employer] Start: 12-18-2024 End: 12-18-2024 [facility] Start: 12-15-2024 [facility]ulatory [facility] flash [facility]LS [facility] Start: 12-15-2024 Registered Referred [facility] [employer] Start: 12-11-2024 Registered Referred Carlos Cavazos - [employer] Start: 12-11-2024 End: 12-11-2024 ambulatory Carlos Maribelsaros OLS Facility:[facility] Start: 12-08-2024 Registered Referred [facility] [employer] Start: 12-08-2024 End: 12-08-2024 ambulatory Karon Delacruzlla OLS Facility:[facility] Start: 12-04-2024 Registered Referred [facility]aron [facility] [employer] Start: 12-04-2024 End: 12-04-2024 ambulatory Carlaaveer Mukkamalla OLS Facility:[facility] Start: 12-02-2024 [facility] Start: 12-02-2024 Registered Referred Karon [facility] [employer] Start: 12-01-2024 ambulatory Carlos NOVAK Faci lity:[facility] Start: 12-01-2024 Registered Referred Carlos Cavazos - [facility] [employer] Start: 11-28-2024 Registered Referred Carlos Cavazos - [employer] Start: 11-28-2024 End: 11-28-2024 ambulatory Carlos NOVAK Facility:[facility] Start: 11-27-2024 Registered Referred Karon casillas MD -[facility] [employer] Start: 11-27-2024 End: 11-27-2024 ambulatory Karon NOVAK Facility:[facility] Start: 11-24-2024 ambulatory Karon NOVAK Facility:[facility] Start: 11-24-2024 Registered Referred Karon [facility] [employer] Start: 11-20-2024 Registered Referred Karon casillas MD -[facility] [employer] Start: 11-20-2024 End: 11-20-2024 ambulatory Karon NOVAK Facility:[facility] Start: 11-17-2024 ambulatory Monika Carlos ty:[facility] Start: 11-17-2024 Registered Referred Karon casillas MD -[facility] [employer] Start: 11-13-2024 ambulatory Monika Carlos ty:[facility] Start: 11-13-2024 Registered Referred Karon casillas MD -[facility] [employer] Start: 11-10-2024 ambulatory Karon NOVAK Facility:[facility] Start: 11-10-2024 Registered Referred Karon [facility] [employer] Start: 11-06-2024 Registered Referred Karon casillas MD -[facility] [employer] Start: 11-06-2024 End: 11-06-2024 ambulatory Karon NVOAK Facility:[facility] Start: 11-03-2024 End: 11-03-[address] Monika Staley MD Work Phone: -[facility] [employer] Start: 11-03-2024 End: 11-03-2024 Departed Referred Carlos Cavazos -[facility] [employer] Start: 11-03-2024 Registered Referred Carlos Cavazos - [employer] Start: 11-03-2024 End: 11-03-2024 ambulatory Carlos NOVAK Facility:[facility] Start: 10-30-2024 End: 10-30-[address] Monika Staley MD Work Phone: -[facility] [employer] Start: 10-30-2024 End: 10-30-2024 Departed Referred Karon Corrales MD -[facility] [employer] Start: 10-30-2024 Registered Referred Karon casillas MD -[facility] [employer] Start: 10-30-2024 End: 10-30-2024 ambulatory Monika Staley Facility:[facility] Start: 10-27-2024 Registered Referred Karon casillas MD -[facility] [employer] Start: 10-27-2024 End: 10-27-2024 ambulatory Karon NOVAK Facility:[facility] Start: 10-23-2024 Registered Referred Karon casillas MD -[facility] [employer] Start: 10-23-2024 End: 10-23-2024 ambulatory Monika Staley Facility:[facility] Start: 10-20-2024 End: 10-20-[address] Monika Staley MD Work Phone: -[facility] [employer] Start: 10-20-2024 End: 10-20-2024 Departed Referred Karon Corrales MD -[facility] [employer] Start: 10-20-2024 Registered Referred Karon casillas MD -[facility] [employer] Start: 10-20-2024 End: 10-20-2024 ambulatory Karon NOVAK Facility:[facility] Start: 10-16-2024 ambulatory Monika Horner Luís Facili ty:[facility] Start: 10-16-2024 Registered Referred [facility] [employer] Start: 10-13-2024 ambulatory Carlos NOVAK Faci lity:[facility] Start: 10-13-2024 Registered Referred Carlos Cavazos - [employer] Start: 10-09-2024 ambulatory Monika Horner Luís Facili ty:[facility] Start: 10-09-2024 Registered Referred Karon casillas MD -[facility] [employer] Start: 10-06-2024 ambulatory Carlos NOVAK Faci lity:[facility] Start: 10-06-2024 Registered Referred Carlos Cavazos - [employer] Start: 10-02-2024 ambulatory Monika Horner Luís Facili ty:[facility] Start: 10-02-2024 Registered Referred Karon casillas MD -[facility] [employer] Start: 09-30-2024 End: 09-30-[address] Monika Staley MD Work Phone: [facility] Work Phone: Start: 09-30-2024 End: 09-30-2024 Departed Referred Karon Corrales MD -[facility] [employer] Start: 09-30-2024 Registered Referred [facility] [employer] Start: 09-30-2024 End: 09-30-2024 ambulatory Karon NOVAK Facility:[facility] Start: 09-25-2024 ambulatory Karon NOVAK Facility:[facility] Start: 09-25-2024 Registered Referred Karon [facility] [employer] Start: 09-22-2024 End: 09-22-[address] Monika Staley MD Work Phone: -[facility] [employer] [employer] Start: 09-22-2024 End: 09-22-2024 Departed Referred Karon Corrales MD -[facility] [employer] Start: 09-22-2024 Registered Referred Karon casillas MD -[facility] [employer] Start: 09-22-2024 End: 09-22-2024 ambulatory Karon NOVAK Facility:[facility] Start: 09-18-2024 End: 09-18-[address] Monika Staley MD Work Phone: -[facility] [employer] Start: 09-18-2024 End: 09-18-2024 Departed Referred Karon Corrales MD -[facility] [employer] Start: 09-18-2024 Registered Referred Karon casillas MD -[facility] [employer] Start: 09-18-2024 End: 09-18-2024 ambulatory Karon NOVAK Facility:[facility] Start: 09-15-2024 End: 09-15-[address] Monika Staley MD Work Phone: [facility] Work Phone: Start: 09-15-2024 End: 09-15-2024 Departed Referred Carlos Cavazos -[facility] [employer] Start: 09-15-2024 Registered Referred Carlos Cavazos - [facility] [employer] Start: 09-15-2024 End: 09-15-2024 ambulatory Carlos NOVAK Facility:[facility] Start: 09-11-2024 ambulatory Karon NOVAK Facility:[facility] Start: 09-11-2024 Registered Referred Karon casillas MD -[facility] [employer] Start: 09-08-2024 End: 09-08-[address] Monika Staley MD Work Phone: [facility] Work Phone: Start: 09-08-2024 End: 09-08-2024 Departed Referred Karon Corrales MD -[facility] [employer] [employer] Start: 09-08-2024 Registered Referred Karon casillas MD -[facility] [employer] Start: 09-08-2024 End: 09-08-2024 ambulatory Karon NOVAK Facility:[facility] Start: 09-04-2024 End: 09-04-2024 Departed Referred Carlos Cavazos -[facility] [employer] Start: 09-04-2024 Registered Referred Carlos Cavazos - [facility] [employer] Start: 09-04-2024 End: 09-04-2024 ambulatory Carlos Cavazos OLS Facility:[facility] Start: 09-01-2024 End: 09-01-[address] Monika Staley MD Work Phone: [facility] Work Phone: Start: 09-01-2024 End: 09-01-2024 Departed Referred Carlos Cavazos -[employer] [employer] Start: 09-01-2024 Registered Referred Carlos Maribelkameron - [facility] [employer] Start: 09-01-2024 End: 09-01-2024 ambulatory Carlos NOVAK Facility:[facility] Start: 08-28-2024 End: 08-28-[address] Monika Staley MD Work Phone: [facility] Work Phone: Start: 08-28-2024 End: 08-28-2024 Departed Referred Carlos Cavazos -[employer] [employer] Start: 08-28-2024 Registered Referred Carlos Abdelrahmanros - [facility] [employer] Start: 08-28-2024 End: 08-28-2024 ambulatory Carlos NOVAK Facility:[facility] Start: 08-25-2024 End: 08-25-[address] Monika Staley MD Work Phone: [facility] Work Phone: Start: 08-25-2024 End: 08-25-2024 Departed Referred Karon Corrales MD -[facility] [employer] Start: 08-25-2024 Registered Referred Karon casillas MD -[facility] [employer] Start: 08-25-2024 End: 08-25-2024 ambulatory Carlaamber Morrisonmingshellie OLS Facility:[facility] Start: 08-21-2024 End: 08-21-[address] Monika Staley MD Work Phone: [facility] Work Phone: Start: 08-21-2024 End: 08-21-2024 Departed Referred Karno Corrales MD -[facility] [employer] Start: 08-21-2024 Registered Referred Karon casillas MD -[facility] [employer] Start: 08-21-2024 End: 08-21-2024 ambulatory Carlaamber Davidinga OLS Facility:[facility] Start: 08-18-2024 End: 08-18-[address] Monika Staley MD Work Phone: [facility] Work Phone: Start: 08-18-2024 End: 08-18-2024 Departed Referred Karon Corrales MD -[facility] [employer] Start: 08-18-2024 Registered Referred Karon casillas MD -[facility] [employer] Start: 08-18-2024 End: 08-18-2024 ambulatory Carlavilmanoe Hernandezelismingshellie OLS Facility:[facility] Start: 08-14-2024 End: 08-14-[address] Monika Staley MD Work Phone: [facility] Work Phone: Start: 08-14-2024 End: 08-14-2024 Departed Referred Karon Corrales MD -[facility] [employer] Start: 08-14-2024 Registered Referred Karon casillas MD -[facility] [employer] [employer] Start: 08-14-2024 End: 08-14-2024 ambulatory Carlaamber Corrales OLS Facility:[facility] Start: 08-11-2024 End: 08-11-2024 Departed Referred Karon Corrales MD -[facility] [employer] Start: 08-11-2024 Registered Referred Karon casillas MD -[facility] [employer] Start: 08-11-2024 End: 08-11-2024 ambulatory Karon NOVAK Facility:[facility] Start: 08-07-2024 End: 08-07-2024 Departed Referred Carlos Maribelsaros -[facility] [employer] Start: 08-07-2024 Registered Referred Carlos Maribelsaros - [employer] Start: 08-07-2024 End: 08-07-2024 ambulatory Carlos NOVAK Facility:[facility] Start: 08-04-2024 End: 08-04-[address] Monika Staley MD Work Phone: [facility] Work Phone: Start: 08-04-2024 End: 08-04-2024 Departed Referred Carlos Maribelsaros -[facility] [employer] Start: 08-04-2024 Registered Referred Carlos Maribelsaros - [employer] Start: 08-04-2024 End: 08-04-2024 ambulatory Carlos NOVAK Facility:[facility] Start: 07-31-2024 End: 07-31-[address] Monika Staley MD Work Phone: [facility] Work Phone: Start: 07-31-2024 End: 07-31-2024 Departed Referred Karon Corrales MD -[facility] [employer] Start: 07-31-2024 Registered Referred Karon casillas MD -[facility] [employer] Start: 07-31-2024 End: 07-31-2024 ambulatory Karon NOVAK Facility:[facility] Start: 07-28-2024 End: 07-28-[address] Monika Staley MD Work Phone: [facility] Work Phone: Start: 07-28-2024 End: 07-28-2024 Departed Referred Karon Corrales MD -[facility] [employer] Start: 07-28-2024 Registered Referred Karon casillas MD -[facility] [employer] Start: 07-28-2024 End: 07-28-2024 ambulatory Karon NOVAK Facility:[facility] Start: 07-25-2024 End: 07-25-[address] Monika Staley MD Work Phone: [facility] Work Phone: Start: 07-25-2024 End: 07-25-2024 Departed Referred Carlos Cavazos -[facility] [employer] Start: 07-25-2024 Registered Referred Carlos Reeder [facility] [employer] Start: 07-24-2024 End: 07-25-[address] Monika Staley MD Work Phone: [facility] Work Phone: Start: 07-24-2024 End: 07-24-2024 Departed Referred Karon Corrales MD -[facility] [employer] Start: 07-24-2024 Registered Referred Karon casillas MD -[facility] [employer] Start: 07-24-2024 End: 07-24-2024 ambulatory Karon NOVAK Facility:[facility] Start: 07-21-2024 End: 07-21-[address] Monika Staley MD Work Phone: [facility] Work Phone: Start: 07-21-2024 End: 07-21-2024 Departed Referred Karon Corrales MD -[facility] [employer] Start: 07-21-2024 Registered Referred K[facility] [employer] Start: 07-21-2024 End: 07-21-2024 ambulatory Karon NOVAK Facility:[facility] Start: 07-17-2024 End: 07-17-[address] Monika Staley MD Work Phone: [facility] Work Phone: Start: 07-17-2024 End: 07-17-2024 Departed Referred Karon Corrales MD -[facility] [employer] Start: 07-17-2024 Registered Referred Karon casillas MD -[employer] [employer] Start: 07-17-2024 End: 07-17-2024 ambulatory Karon NOVAK Facility:[facility] Start: 07-14-2024 End: 07-14-[address] Monika Staley MD Work Phone: [facility] Work Phone: Start: 07-14-2024 End: 07-14-2024 Departed Referred Carlos Cavazos -[employer] Start: 07-14-2024 Registered Referred Carlos Lópezsaviri - [employer] [employer] Start: 07-14-2024 End: 07-14-2024 ambulatory Carlos NOVAK Facility:[facility] Start: 07-11-2024 End: 07-11-[address] Monika Staley MD Work Phone: [facility] Work Phone: Start: 07-11-2024 End: 07-11-2024 Departed Referred Carlos Cavazos -[employer] Start: 07-11-2024 Registered Referred Carlos Lópezsaviri - [employer] [employer] Start: 07-11-2024 End: 07-11-2024 ambulatory Carlos NOVAK Facility:[facility] Start: 07-07-2024 End: 07-07-[address] Monika Staley MD Work Phone: [facility] Work Phone: Start: 07-07-2024 End: 07-07-2024 Departed Referred Karon Corrales MD -[employer] [employer] Start: 07-07-2024 Registered Referred [facility] -[employer] [employer] Start: 07-07-2024 End: 07-07-2024 ambulatory Karon NOVAK Facility:[facility] Start: 07-03-2024 End: 07-03-[address] Monika Staley MD Work Phone: [facility] Work Phone: Start: 07-03-2024 End: 07-03-2024 Departed Referred Kvng Crisostomo MD -[employer] [employer] Start: 07-03-2024 Registered Referred Kvng Crisostomo MD -[employer] [employer] Start: 07-03-2024 End: 07-03-2024 ambulatory Kvng NOVAK Facility:[facility] Start: 06-30-2024 End: 06-30-[address] Monika Staley MD Work Phone: [facility] Work Phone: Start: 06-30-2024 End: 06-30-2024 Departed Referred Kvng Crisostomo MD -[employer] [employer] Start: 06-30-2024 Registered Referred Kvng Crisostomo MD -[facility] [employer] Start: 06-30-2024 End: 06-30-2024 ambulatory Kvng NOVAK Facility:[facility] Start: 06-26-2024 ambulatory Kvng NOVAK Fac ility:[facility] Start: 06-26-2024 Registered Referred Kvng Crisostomo MD -[employer] Start: 06-23-2024 End: 06-23-[address] Monika Staley MD Work Phone: [facility] Work Phone: Start: 06-23-2024 End: 06-23-2024 Departed Referred Carlos [facility] [employer] [employer] Start: 06-23-2024 Registered Referred Carlos Reeder [facility] [employer] Start: 06-23-2024 End: 06-23-2024 ambulatory Carlos NOVAK Facility:[facility] Start: 06-19-2024 End: 06-19-[address] Monika Staley MD Work Phone: [facility] Work Phone: Start: 06-19-2024 End: 06-19-2024 Departed Referred Kvng Crisostomo MD -[facility] [employer] Start: 06-19-2024 Registered Referred Kvng Crisostomo MD -[facility] [employer] Start: 06-19-2024 End: 06-19-2024 ambulatory Monika Staley Facility:[facility] Start: 06-16-2024 End: 06-16-[address] Monika Staley MD Work Phone: [facility] Work Phone: Start: 06-16-2024 End: 06-16-2024 Departed Referred Kvng Crisostomo MD -[facility] [employer] Start: 06-16-2024 Registered Referred Kvng Crisostomo MD -[facility] [employer] Start: 06-16-2024 End: 06-16-2024 ambulatory Monika Staley Facility:[facility] Start: 06-12-2024 End: 06-12-[address] Monika Staley MD Work Phone: [facility] Work Phone: Start: 06-12-2024 End: 06-12-2024 Departed Referred Kvng Crisostomo MD -[facility] [employer] Start: 06-12-2024 Registered Referred Kvng Crisostomo MD -[facility] [employer] Start: 06-12-2024 End: 06-12-2024 ambulatory Kvng NOVAK Facility:[facility] Start: 06-09-2024 End: 06-09-[address] Monika Staley MD Work Phone: [facility] Work Phone: Start: 06-09-2024 End: 06-09-2024 Departed Referred Carlos [facility] [employer] Start: 06-09-2024 Registered Referred Carlos [facility] [employer] Start: 06-09-2024 End: 06-09-2024 ambulatory Monika Staley Facility:[facility] Start: 06-05-2024 End: 06-05-[address] Monika Staley MD Work Phone: [facility] Work Phone: Start: 06-05-2024 End: 06-05-2024 Departed Referred Kvng [facility] [employer] Start: 06-05-2024 End: 06-05-2024 ambulatory Kvng NOVAK Facility:[facility] Start: 06-02-2024 End: 06-02-[address] Monika Staley MD Work Phone: [facility] Work Phone: Start: 06-02-2024 End: 06-02-2024 Departed Referred Kvng [facility] [employer] [employer] Start: 06-02-2024 Registered Referred Kvng Crisostomo MD -[facility] [employer] Start: 06-02-2024 End: 06-02-2024 ambulatory Kvng ONVAK Facility:[facility] Start: 05-29-2024 End: 05-29-[address] Monika Staley MD Work Phone: [facility] Work Phone: Start: 05-29-2024 End: 05-29-2024 Departed Referred Kvng [employer] [employer] Start: 05-29-2024 Registered Referred Kvng [employer] Start: 05-29-2024 End: 05-29-2024 ambulatory Kvng NOVAK Facility:[facility] Start: 05-26-2024 End: 05-26-[address] Monika Staley MD Work Phone: [facility] Work Phone: Start: 05-26-2024 End: 05-26-2024 Departed Referred [facility] Start: 05-26-2024 Registered Referred Carlos Reeder [facility] [employer] Start: 05-26-2024 End: 05-26-2024 ambulatory Carlos NOVAK Facility:[facility] Start: 05-22-2024 ambulatory Kvng NOVAK Fac ility:[facility] Start: 05-22-2024 Registered Referred [facility] Start: 05-20-2024 End: 05-20-2024 Departed Referred [facility] [employer] [employer] Start: 05-19-2024 End: 05-20-2024 ambulatory Kvng NOVAK Facility:[facility] Start: 05-19-2024 Registered Referred [facility] [employer] [facility] Start: 05-15-2024 End: 05-15-2024 Departed Referred [facility] [employer] [employer] Start: 05-15-2024 End: 05-15-2024 ambulatory Kvng NOVAK Facility:[facility] Start: 05-12-2024 End: 05-12-2024 Departed Referred Carlos [facility] [employer] Start: 05-12-2024 End: 05-12-2024 ambulatory Carlos NOVAK Facility:[facility] Start: 05-09-2024 End: 05-09-2024 Departed Referred [facility] Start: 05-09-2024 End: 05-09-2024 ambulatory Kvng NOVAK Facility:[facility] Start: 05-08-2024 End: 05-08-2024 Departed Referred [facility] [employer] [facility] Start: 05-08-2024 End: 05-08-2024 ambulatory Kvng Crisostomoluis enrique NOVAK Facility:[facility] Start: 05-05-2024 End: 05-05-2024 Departed Referred Kvng Crisostomo MD -[facility] [employer] Start: 05-05-2024 End: 05-05-2024 ambulatory Vicenterocio Jonesluis enrique NOVAK Facility:[facility] Start: 05-01-2024 End: 05-01-2024 Departed Referred Kvng Crisostomo MD -[facility] [employer] Start: 05-01-2024 End: 05-01-2024 ambulatory Vicenterocio Andressa NOVAK Facility:[facility] Start: 04-28-2024 End: 04-28-2024 Departed Referred Carlos Cavazos -[facility] [employer] Start: 04-28-2024 End: 04-28-2024 ambulatory Carlos NOVAK Facility:[facility] Start: 04-24-2024 End: 04-24-2024 Departed Referred Kvng Crisostomo MD -[facility] [employer] Start: 04-24-2024 End: 04-24-2024 ambulatory Vicenterocio Andressa NOVAK Facility:[facility] Start: 04-21-2024 End: 04-21-2024 Departed Referred Carlos Cavazos -[facility] [employer] Start: 04-21-2024 End: 04-21-2024 ambulatory Carlos NOVAK Facility:[facility] Start: 04-17-2024 ambulatory Vicenterocio Jonesur OLS Fac ility:[facility] Start: 04-17-2024 Registered Referred [facility] [employer] Start: 04-14-2024 ambulatory Vicenterocio Jonesluis enrique NOVAK Fac ility:[facility] Start: 04-14-2024 Registered Referred Kvng Crisostomo MD -[facility] [employer] Start: 04-10-2024 End: 04-10-2024 Departed Referred [facility] [employer] Start: 04-10-2024 End: 04-10-2024 ambulatory Vicentesigifredokarolmilton Andressa NOVAK Facility:[facility] Start: 04-07-2024 End: 04-07-2024 Departed Referred Carlos Cavazos -[employer] Start: 04-07-2024 End: 04-07-2024 ambulatory Carlos NOVAK Facility:[facility] Start: 04-04-2024 ambulatory Kvng NOVAK Fac ility:[facility] Start: 04-04-2024 Registered Referred Kvng Crisostomo MD -[facility] [employer] Start: 03-31-2024 End: 03-31-2024 Departed Referred Carlos Cavazos [facility] [employer] Start: 03-31-2024 End: 03-31-2024 ambulatory Carlos NOVAK Facility:[facility] Start: 03-27-2024 End: 03-27-2024 Departed Referred [facility] [employer] Start: 03-27-2024 End: 03-27-2024 ambulatory [facility] Facility:[facility] Start: 03-24-2024 End: 03-24-2024 Departed Referred Kvng Crisostomo MD -[facility] [employer] Start: 03-24-2024 End: 03-24-2024 ambulatory Kvng NOVAK Facility:[facility] Start: 03-20-2024 End: 03-20-2024 Departed Referred [facility] Start: 03-20-2024 End: 03-20-2024 ambulatory [facility] Facility:[facility] Start: 03-19-2024 End: 03-19-2024 Departed Referred Kvng Crisostomo MD -[facility] [employer] Start: 03-19-2024 End: 03-19-2024 ambulatory Kvng NOVAK Facility:[facility] Start: 03-18-2024 End: 03-18-2024 Departed Referred [facility] Start: 03-17-2024 End: 03-17-2024 Departed Referred [facility] [employer] Start: 03-14-2024 End: 03-14-2024 Departed Referred Carlos Cavazos [facility] [employer] Start: 03-13-2024 End: 03-13-[address] [facility] Start: 09-13-2023 End: 09-13-2023 ambulatory [facility] Start: 09-13-2023 End: 09-13-2023 Office outpatient visit 25 minutes Rebecca Buck MD Work Phone: [facility] Comment on above: Left flank pain (Christina magui Dx); BPH with urinary obstruction; History of kidney stones Start: 09-06-2023 End: 09-07-2023 ambulatory [facility] Start: 09-06-2023 End: 09-06-2023 Subsequent hospital visit by physician Rebecca Buck MD Work Phone: [facility] Imaging Comment on above: Left flank pain; Calculus of ureter Start: 08-31-2023 [facility] Start: 08-31-2023 Patient encounter [facility] Start: 08-21-2023 Telephone encounter Rebecca Buck MD Work Phone: [facility] Clinical Communication Comment on above: CT appt Boaz advice Start: 08-21-2023 [facility] Start: 08-13-2023 End: 08-13-2023 ambulatory [facility] Start: 08-13-2023 End: 08-13-2023 Office outpatient new 45 minutes Rebecca Buck MD Work Phone: [facility] Comment on above: Left flank pain (Christina magui Dx); Calculus of ureter; Disease of prostate; BPH with urinary obstruction Start: 08-03-2023 End: 08-03-2023 ambulatory [facility] Work Phone: Start: 08-03-2023 End: 08-03-2023 Departed Referred [facility] [employer] [facility] Start: 07-20-2023 End: 07-20-2023 ambulatory [facility] Work Phone: Start: 07-20-2023 End: 07-20-2023 Departed Referred [facility] [employer] Start: 07-20-2023 Registered Referred [facility] [employer] Start: 07-18-2023 End: 07-18-2023 ambulatory [facility] Work Phone: Start: 07-18-2023 End: 07-18-2023 [facility]: 07-18-[facility]23 [facility] Start: 07-16-2023 End: 07-16-2023 ambulatory [facility] Work Phone: Start: 07-16-2023 End: 07-16-2023 [facility] Start: 07-16-2023 [facility] Start: 07-13-2023 End: 07-13-2023 ambulatory [facility] Work Phone: Start: 07-13-2023 End: 07-13-2023 [facility] Start: 07-13-2023 [facility] Start: 07-12-2023 End: 07-12-2023 ambulatory [facility] Work Phone: Start: 07-12-2023 End: 07-12-2023 [facility] Start: 07-12-2023 Registered Referred [facility] [employer] Start: 07-05-2023 End: 07-05-2023 ambulatory [facility] Work Phone: Start: 07-05-2023 End: 07-05-2023 [facility] Start: 07-05-2023 Registered [facility] [facility] Start: 07-02-2023 Registered Ref[facility] Start: 06-28-2023 End: 06-28-2023 ambulatory [facility] Work Phone: Start: 06-28-2023 End: 06-28-2023 [facility] Start: 06-28-2023 [facility] Start: 06-25-2023 Telephone encounter Rebecca Buck MD Work Phone: [facility] Start: 06-25-2023 End: 06-25-2023 ambulatory [facility] Work Phone: Start: 06-25-2023 End: 06-25-2023 [facility] Start: 06-25-2023 [facility] Start: 06-21-2023 End: 06-21-2023 ambulatory [facility] Work Phone: Start: 06-21-2023 End: 06-21-2023 [facility] Start: 06-21-2023 [facility] Start: 06-13-2023 End: 06-13-2023 ambulatory [facility] Work Phone: Start: 06-13-2023 End: 06-13-2023 [facility] Start: 06-06-2023 End: 06-06-2023 ambulatory [facility] Work Phone: Start: 06-06-2023 End: 06-06-2023 [facility] Start: 06-06-2023 [facility] Start: 05-23-2023 End: 05-23-2023 ambulatory [facility] Work Phone: Start: 05-23-2023 End: 05-23-2023 [facility] Start: 05-09-2023 End: 05-09-2023 [facility] Start: 05-09-2023 [facility] Start: 04-23-2023 End: 04-23-2023 [facility] Start: 04-09-2023 End: 04-09-2023 ambulatory [facility] Work Phone: Start: 04-09-2023 End: 04-09-2023 [facility] Start: 04-09-2023 [facility] Start: 04-02-2023 End: 04-02-2023 ambulatory [facility] Work Phone: Start: 04-02-2023 End: 04-02-2023 [facility] Start: 04-02-2023 [facility] Start: 03-26-2023 End: 03-26-2023 ambulatory [facility] Work Phone: Start: 03-26-2023 End: 03-26-2023 [facility] Start: 03-26-2023 [facility] Start: 03-22-2023 End: 03-22-2023 ambulatory [facility] Work Phone: Start: 03-22-2023 End: 03-22-2023 [facility] Start: 03-22-2023 [facility] Start: 03-08-2023 End: 03-08-2023 ambulatory [facility] Work Phone: Start: 03-08-2023 End: 03-08-2023 [facility] Start: 02-22-2023 End: 02-22-2023 ambulatory [facility] Work Phone: Start: 02-22-2023 End: 02-22-2023 Departed [facility] [employer] [facility] Start: 02-22-2023 Registered Referred [facility] Start: 02-15-2023 End: 02-15-2023 ambulatory [facility] Work Phone: Start: 02-15-2023 End: 02-15-2023 Departed Referred [facility] [employer] Start: 02-15-2023 Registered Referred [facility] [employer] Start: 02-08-2023 End: 02-08-2023 ambulatory [facility] Work Phone: Start: 02-08-2023 End: 02-08-2023 Departed Referred [facility] Start: 01-31-2023 End: 01-31-2023 ambulatory [facility] Work Phone: Start: 01-31-2023 End: 01-31-2023 Departed Referred [facility] [employer] [facility] Start: 01-31-2023 Registered Referred [facility] Start: 01-29-2023 End: 01-29-2023 Departed [facility]erred [facility] Start: 01-29-2023 Registered Referred [facility] Start: 01-26-2023 End: 01-26-2023 Departed [facility] [facility] Start: 01-26-2023 Registered Referred [facility] [facility] Start: 01-24-2023 End: 01-24-2023 Departed [facility] [facility] Start: 01-24-2023 Registered Referred [facility] [employer] [facility] Start: 01-22-2023 End: 01-22-2023 ambulatory [facility] Work Phone: Start: 01-22-2023 End: 01-22-2023 [facility] Start: 01-22-2023 [facility] Start: 01-10-2023 End: 01-10-2023 ambulatory [facility] Work Phone: Start: 01-10-2023 End: 01-10-2023 [facility] Start: 01-10-2023 [facility] Start: 12-27-2022 End: 12-27-2022 ambulatory [facility] Work Phone: Start: 12-27-2022 End: 12-27-2022 [facility] Start: 12-27-2022 [facility] Start: 12-21-2022 End: 12-21-2022 ambulatory [facility] Work Phone: Start: 12-21-2022 End: 12-21-2022 [facility] Start: 12-21-2022 [facility] Start: 12-14-2022 End: 12-14-2022 ambulatory [facility] Work Phone: Start: 12-14-2022 End: 12-14-2022 [facility] Start: 12-14-2022 [facility] Start: 12-07-2022 End: 12-07-2022 ambulatory [facility] Work Phone: Start: 12-07-2022 End: 12-07-2022 [facility] Start: 12-07-2022 [facility] Start: 11-24-2022 End: 11-24-2022 ambulatory [facility] Work Phone: Start: 11-24-2022 End: 11-24-2022 Departed [facility] Start: 11-24-2022 Registered Referred [facility] [facility] Start: 11-23-2022 End: 11-23-2022 ambulatory [facility] Work Phone: Start: 11-23-2022 End: 11-23-2022 [facility] Start: 11-23-2022 [facility] Start: 11-22-2022 End: 11-22-2022 ambulatory [facility] Work Phone: Start: 11-22-2022 End: 11-22-2022 [facility] Start: 11-22-2022 [facility] Start: 11-09-2022 End: 11-09-2022 ambulatory [facility] Work Phone: Start: 11-09-2022 End: 11-09-2022 [facility] Start: 11-09-2022 Registered Referred [facility] Start: 10-26-2022 End: 10-26-2022 [facility] Start: 10-26-2022 Registered Referred [facility] [facility] Start: 10-12-2022 End: 10-12-2022 ambulatory [facility] Work Phone: Start: 10-12-2022 End: 10-12-2022 [facility] Start: 10-12-2022 [facility] Start: 10-05-2022 End: 10-05-2022 [facility] Start: 10-05-2022 [facility] Start: 09-28-2022 End: 09-28-2022 ambulatory [facility] Work Phone: Start: 09-28-2022 End: 09-28-2022 [facility] Start: 09-14-2022 End: 09-14-2022 [facility] Start: 08-31-2022 End: 08-31-2022 [facility] Start: 08-31-2022 [facility] Start: 08-23-2022 End: 08-23-2022 ambulatory [facility] Work Phone: Start: 08-23-2022 End: 08-23-2022 [facility] Start: 08-23-2022 [facility] Start: 08-17-2022 End: 08-17-2022 ambulatory [facility] Work Phone: Start: 08-17-2022 End: 08-17-2022 [facility] Start: 08-17-2022 [facility] Start: 08-14-2022 End: 08-14-2022 ambulatory [facility] Work Phone: Start: 08-14-2022 End: 08-14-2022 [facility] Start: 08-14-2022 [facility] Start: 07-31-2022 End: 07-31-2022 ambulatory [facility] Work Phone: Start: 07-31-2022 End: 07-31-2022 [facility] Start: 07-31-2022 Registered Referred [facility] [facility] Start: 07-24-2022 End: 07-24-2022 ambulatory [facility] Work Phone: Start: 07-24-2022 End: 07-24-2022 [facility] Start: 07-24-2022 Registered Referred [facility] [facility] Start: 07-20-2022 End: 07-20-2022 [facility] Start: 07-20-2022 Registered Referred [facility] Start: 07-17-2022 End: 07-17-2022 [facility] Start: 07-17-2022 [facility] Start: 07-11-2022 [facility] Start: 07-10-2022 End: 07-10-2022 ambulatory [facility] Work Phone: Start: 07-10-2022 End: 07-10-2022 [facility] Start: 07-10-2022 [facility] Start: 07-03-2022 End: 07-03-2022 ambulatory [facility] Work Phone: Start: 07-03-2022 End: 07-03-2022 [facility] Start: 07-03-2022 [facility] Start: 06-27-2022 End: 06-27-2022 ambulatory [facility] Work Phone: Start: 06-27-2022 End: 06-27-2022 [facility] Start: 06-27-2022 Registered [facility] Start: 06-13-2022 End: 06-13-2022 ambulatory [facility] Work Phone: Start: 06-13-2022 End: 06-13-2022 Dep[facility]ed [facility] Start: 06-13-2022 Registered Ref[facility] Start: 06-06-2022 End: 06-06-2022 ambulatory [facility] Work Phone: Start: 06-06-2022 End: 06-06-2022 [facility] Start: 06-06-2022 [facility] Start: 05-30-2022 End: 05-30-2022 ambulatory [facility] Work Phone: Start: 05-30-2022 End: 05-30-2022 [facility] Start: 05-30-2022 [facility] Start: 05-16-2022 End: 05-16-2022 ambulatory [facility] Work Phone: Start: 05-16-2022 End: 05-16-2022 [facility] Start: 05-16-2022 Registered Referred [facility] [facility] Start: 05-02-2022 End: 05-02-2022 ambulatory [facility] Work Phone: Start: 05-02-2022 End: 05-02-2022 [facility] Start: 05-02-2022 [facility] Start: 04-27-2022 End: 04-27-2022 ambulatory [facility] Work Phone: Start: 04-27-2022 End: 04-27-2022 [facility] Start: 04-27-2022 Registered [facility] Start: 04-26-2022 End: 04-26-2022 ambulatory [facility] Work Phone: Start: 04-26-2022 End: 04-26-2022 Departed [facility] [facility] Start: 04-11-2022 End: 04-11-2022 ambulatory [facility] Work Phone: Start: 04-11-2022 End: 04-11-2022 Departed [facility] Start: 03-28-2022 End: 03-28-2022 Departed [facility] Start: 03-28-2022 Registered Referred [facility] Start: 03-23-2022 End: 03-23-2022 Departed [facility] Start: 03-23-2022 Registered Ref[facility] Start: 03-16-2022 End: 03-16-2022 ambulatory [facility] Work Phone: Start: 03-16-2022 End: 03-16-2022 Departed [facility] Start: 03-16-2022 Registered Ref[facility] Start: 03-09-2022 End: 03-09-2022 ambulatory [facility] Work Phone: Start: 03-09-2022 End: 03-09-2022 Departed [facility] Start: 03-09-2022 Registered Ref[facility] Start: 03-06-2022 End: 03-06-2022 ambulatory [facility] Work Phone: Start: 03-06-2022 End: 03-06-2022 [facility] Start: 03-06-2022 Registered Referred [facility] [facility] Start: 03-02-2022 End: 03-03-2022 Emergency department patient visit UNKNOWN PROVIDER [facility] Start: 03-02-2022 End: 03-02-2022 Emergency department patient visit Lanette Munguia Work Phone: [facility] Emergency Dept Comment on above: Fall, initial encoun ter (Primary Dx); Anticoagulated Start: 02-20-2022 End: 02-20-2022 Departed Referred [facility] [employer] Start: 02-20-2022 Registered Referred [facility] Start: 02-13-2022 End: 02-13-2022 ambulatory [facility] Work Phone: Start: 02-13-2022 End: 02-13-2022 Departed Referred [facility] Start: 02-13-2022 Registered Referred [facility] Start: 02-06-2022 End: 02-06-2022 ambulatory [facility] Work Phone: Start: 02-06-2022 End: 02-06-2022 Departed Referred [facility] [employer] Start: 02-06-2022 Registered Referred [facility] Start: 01-30-2022 End: 01-30-2022 Departed Referred [facility] Start: 01-30-2022 Registered Referred [facility] Start: 01-26-2022 End: 01-26-2022 ambulatory [facility] Work Phone: Start: 01-26-2022 End: 01-26-2022 Departed Referred [facility] [employer] Start: 01-26-2022 Registered Referred [facility] Start: 01-19-2022 End: 01-19-2022 ambulatory [facility] Work Phone: Start: 01-19-2022 End: 01-19-2022 [facility] Start: 01-19-2022 [facility] Start: 01-17-2022 ambulatory [facility] Start: 01-10-2022 ambulatory [facility] Start: 01-10-2022 End: 01-10-2022 ambulatory [facility] Work Phone: Start: 01-10-2022 End: 01-10-2022 [facility] Start: 01-10-2022 Registered Referred [facility] [employer] [facility] Start: 01-06-2022 AUDIT Monika Elias rt Work Phone: [facility] Work Phone: Start: 01-05-2022 End: 01-05-2022 [facility] Start[facility] 01-05-2022 [facility] Start: 12-30-2021 End: 12-30-2021 [facility] Start: 12-30-2021 Registered Referred [facility] Start: 12-28-2021 End: 12-28-2021 ambulatory [facility] Work Phone: Start: 12-28-2021 End: 12-28-2021 [facility] Start: 12-28-2021 [facility] Start: 12-26-2021 End: 12-26-2021 ambulatory [facility] Work Phone: Start: 12-26-2021 End: 12-26-2021 [facility] Start: 12-26-2021 [facility] Start: 12-22-2021 End: 12-22-2021 ambulatory [facility] Work Phone: Start: 12-22-2021 End: 12-22-2021 Departed Referred [facility] Start: 12-22-2021 Registered Referred [facility] Start: 12-22-2021 End: 12-22-2021 [facility] Start: 12-21-2021 End: 12-22-2021 Emergency department patient visit Sharon Olivia MD Work Phone: [facility] Emergency Dept Comment on above: Heel ulceration, lef t, with unspecified severity (HCC) (Primary Dx) Start: 12-19-2021 End: 12-19-2021 ambulatory [facility] Work Phone: Start: 12-19-2021 End: 12-19-2021 Departed Referred [facility] Start: 12-19-2021 Registered Referred [facility] Start: 12-12-2021 End: 12-12-2021 ambulatory [facility] Work Phone: Start: 12-12-2021 End: 12-12-2021 Departed Referred [facility] [employer] Start: 12-12-2021 Registered Referred [facility] [employer] [facility] Start: 12-08-2021 End: 12-08-2021 ambulatory [facility] Work Phone: Start: 12-08-2021 End: 12-08-2021 Departed Referred [facility] [employer] Start: 12-08-2021 Registered Referred [facility] Start: 12-05-2021 End: 12-05-2021 ambulatory [facility] Work Phone: Start: 12-05-2021 End: 12-05-2021 Departed Referred [facility] [employer] Start: 12-05-2021 [facility] Start: 12-01-2021 End: 12-01-2021 [facility] Start: 12-01-2021 [facility] Start: 11-28-2021 End: 11-28-2021 [facility] Start: 11-28-2021 [facility] [facility] Start: 11-25-2021 Rx Renewal Monika Elias rt Work Phone: [facility] Work Phone: Start: 11-23-2021 End: 11-23-2021 [facility] Start: 11-23-2021 [facility] Start: 11-22-2021 End: 11-22-2021 [facility] Start: 11-22-2021 [facility] Start: 11-21-2021 End: 11-21-2021 [facility] Start: 11-15-2021 AUDIT Shiela Jada rt Work Phone: [facility] Work Phone: Start: 11-14-2021 End: 11-14-2021 [facility] Start: 11-14-2021 [facility]istered [facility] Start: 11-08-2021 End: 11-08-2021 [facility] Start: 11-08-2021 [facility] Start: 11-04-2021 End: 11-04-2021 [facility] Start: 11-04-2021 Registered Referred [facility] [facility] Start: 10-31-2021 End: 11-01-2021 Emergency department patient visit UNKNOWN PROVIDER [facility] Start: 10-31-2021 End: 11-01-2021 Emergency department patient visit Dante Kim MD Work Phone: [facility] Emergency Dept Comment on above: Other fatigue (Prima ry Dx) Start: 10-31-2021 End: 10-31-2021 Departed Referred [facility] Start: 10-21-2021 End: 10-29-2021 Evaluation and management of inpatient UNKNOWN PROVIDER [facility] Start: 10-21-2021 End: 10-29-2021 Evaluation and management of inpatient Lisa Michelle DO Work Phone: [facility] Comment on above: Leg swelling (Primar y Dx); Acute deep vein thrombosis (DVT) of proximal vein of lower extremity, unspecified laterality (HCC) Start: 10-20-2021 End: 10-20-2021 Departed Referred [facility] Start: 10-17-2021 Telephone encounter Nicole davis MD Work Phone: [facility] Comment on above: Missed Appointment Start: 09-19-2021 End: 09-19-2021 Departed Referred [facility] Start: 11-02-2020 AUDIT Monika Elias rt Work Phone: [facility] Work Phone: Start: 10-27-2020 AUDIT Monika Elias rt Work Phone: [facility] Work Phone: Start: 07-13-2020 Patient encounter procedure Monika Staley [facility] Work Phone: Start: 04-13-2020 [facility]: Start: 04-07-2020 Patient encounter procedure Wing Ritter [facility] Work Phone: Start: 03-18-2020 Patient encounter procedure Wing Stone [facility] Work Phone: Start: 01-20-2020 Patient encounter procedure Monika Staley MD [id number] Work Phone: Start: 11-13-2019 End: 11-13-2019 Subsequent hospital visit by physician [facility] Comment on above: Non-pressure chronic ulcer left lower leg, 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] Start: 11-06-2019 Patient encounter procedure Monika Staley MD [id number] Work Phone: Start: 06-18-2019 End: 06-18-2019 Subsequent [...] Start: 10-26-2021 Electroencephalogram w/rec awake&asleep Sarina Pineda PHYSICS DEPARTMENT CHAIR - ELECTRONIC ORGAN TECHNICIAN Work Phone: Start: 10-26-2021 Ct head/brain w/o co ntrast material Sarina Pineda PHYSICS DEPARTMENT CHAIR - ELECTRONIC ORGAN TECHNICIAN Work Phone: Start: 10-26-2021 Prothrombin time Andres Sheridan MD Work Phone: Start: 10-25-2021 Speech and language therapy regime Sarina Pineda PHYSICS DEPARTMENT CHAIR - ELECTRONIC ORGAN TECHNICIAN Work Phone: Start: 10-25-2021 Prothrombin time [...] Blood count reticulo cyte automated Ellen Scherer PHYSICS DEPARTMENT CHAIR - ELECTRONIC ORGAN TECHNICIAN Work Phone: Start: 10-21-2021 C-reactive protein Loua nn B Niesha PHYSICS DEPARTMENT CHAIR - ELECTRONIC ORGAN TECHNICIAN Work Phone: Start: 10-21-2021 Non-invas physiologi c std extremity art 2 level Shruthi Malik PHYSICS DEPARTMENT CHAIR - ELECTRONIC ORGAN TECHNICIAN Work Phone: Start: 10-21-2021 Radex calcaneus mini mum 2 views Shruthi Malik PHYSICS DEPARTMENT CHAIR - ELECTRONIC ORGAN TECHNICIAN Work Phone: Start: 10-21-2021 Dup-scan xtr [...] Speci men Type: BLOOD SPECIMENOrdering Facility: [facility] Address: [address] [place] [address] Performed By: #### T SCR ####[facility] BLOOD BANKIA [id number] [address] Start: 08-04-2021 Antibody screen Comment on above: Order Comment: Speci men Type: BLOOD SPECIMENOrdering Facility: [facility] Address: [address] [place] [address] Performed By: #### T SCR ####[facility] [id number] [address] Start: 08-01-2021 Antibody screen Comment on above: Order Comment: Speci men Type: BLOOD SPECIMENOrdering Facility: [facility] Address: [address] [place] [address] Performed By: #### T SCR ####[facility] BLOOD BANKCLIA [id number] [place] [address] [facility] Start: 06-07-2021 Antibody screen Comment on above: Order Comment: Speci men Type: BLOOD SPECIMEN Performed By: #### T SCR ####[facility] BLOOD BANKCLIA [id number] [place] [address] [facility] Start: 09-02-2020 Lipid 1996 panel - S bradly or Plasma Rebecca Buck MD Work Phone: Start: 04-07-2020 Echocardiography Wing Ritter Start: 11-13-2019 Radiologic examinati on tibia & fibula 2 views 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 (Desulfurizer Machine) Debbie Work Phone: Hernia repair Monika melvin History of Cholecystotomy An yvette Staley History of Creation Of Subdural-Peritoneal CSF Shunt Monika Staley History of Interrupt ion Inferior Vena Cava Protivin Filter Placement Monika Staley Urine culture Plan of Treatment Date Care Activity Detail Author Start: 09-22-2026 DTaP/Tdap/Td vaccine (2 - Td or Tdap) DTaP/Tdap/Td vaccine (2 - Td or Tdap) [facility] Start: 09-22-2026 DTaP/Tdap/Td vaccine (2 - Td) DTaP/Tdap/Td vaccine (2 - Td) [facility] Work Phone: Start: 09-22-2026 DTaP/Tdap/Td Vaccine s (2 - Td or Tdap) DTaP/Tdap/Td Vaccines (2 - Td or Tdap) [facility] Start: 09-02-2025 Lipid panel Lipid Panel [facility] Start: 03-02-2025 Registered Referred Registered Refer red [facility] [employer] Start: 02-26-2025 Registered Referred Registered Refer red [facility] Start: 02-23-2025 Registered Referred Registered Refer red [facility] Start: 02-19-2025 Registered Referred Registered Refer red [facility] Start: 02-16-2025 Registered Referred Registered Refer red [facility] Start: 08-22-2024 DIABETES SCREEN DIABETES SCREEN [facility] Start: 12-04-2023 Lipid panel Lipids [facility] Start: 12-04-2023 Lipid screen Lipid screen [facility] Work Phone: Start: 09-13-2023 End: 09-13-2023 Patient encounter procedure 09/13/2023 11:30 AM EDT Office Visit [facility] [address] [place] [id number] Rebecca Buck MD [address] [place] [address] [facility] Start: 08-31-2023 End: 08-31-2023 Patient encounter procedure 08/31/2023 9:30 AM EDT Appointment [facility] [address] [place] [id number] Rebecca Buck MD [address] [place] [address] [facility] [address] [facility] Start: 08-13-2023 End: 08-12-2024 Basic metabolic 1998 panel - Serum or Plasma Basic metabolic panel Lab Routine Calculus of ureter Expected: 08/13/2023 (Approximate), Expires: 08/12/2024 [facility] [employer] Comment on above: Expected: 08/13/2023 (Approximate), Expires: 08/12/2024 Start: 08-13-2023 End: 08-12-2024 CT Abdomen WO contrast CT abdomen pelvis wo IV contrast Imaging Routine Left flank pain Calculus of ureter Expected: 08/13/2023, Expires: 08/12/2024 [facility] [employer] Comment on above: Expected: 08/13/2023 , Expires: 08/12/2024 Start: 08-13-2023 End: 02-12-2024 PSA, Monitoring ([facility]) PSA, Monitoring ([facility]) Lab Routine Disease of prostate Expected: 08/13/2023 (Approximate), Expires: 02/12/2024 [facility] [employer] Work Phone: Comment on above: Expected: 08/13/2023 (Approximate), Expires: 02/12/2024 Start: 08-13-2023 End: 08-13-2023 Patient encounter procedure 08/13/2023 10:00 AM EDT Office Visit [facility] [address] [place] [id number] Rebecca Buck MD [address] [place] [address] [facility] Start: 07-17-2023 Bacteria identified in Urine by Culture [facility] Start: 07-17-2023 [place] [facility] Start: 07-16-2023 Measurement of substance [facility] Start: 05-07-2023 Medicare Advantage A nnual Wellness Visit Medicare Advantage Annual Wellness Visit [facility] Start: 03-02-2023 Creatinine measurement Creatinine Le carmela [facility] Start: 03-02-2023 Potassium measurement Potassium Leve l [facility] Start: 08-22-2022 Diabetes mellitus screening Diabetes Screening [facility] Start: 01-05-2022 Influenza vaccination [facility] Start: 12-23-2021 EPV, Provider: Wing Rtiter, Status: Pen, Time: 9:30 AM EPV, Provider: Wing Ritter, Status: Pen, Time: 9:30 AM [facility] Work Phone: Start: 12-05-2021 Influenza vaccination Flu vaccine (# 1) [facility] Start: 12-05-2021 Blood chemistry [facility] Work Phone: Start: 12-05-2021 Complete blood count [facility] Work Phone: Start: 12-05-2021 [facility] Work Phone: Start: 12-01-2021 [facility] Work Phone: Start: 08-05-2021 COVID-19 VACCINE (4 - Booster for Moderna series) COVID-19 VACCINE (4 - Booster for Moderna series) [facility] Start: 08-05-2021 COVID-19 Vaccine (4 - Booster for Pfizer series) COVID-19 Vaccine (4 - Booster for Pfizer series) [facility] Start: 06-01-2021 COVID-19 Vaccine (4 - Booster for Pfizer series) COVID-19 Vaccine (4 - Booster for Pfizer series) [facility] Start: 05-07-2021 ADVANCE DIRECTIVE DISCUSSION ADVANCE DIRECTIVE DISCUSSION [facility] Start: 08-11-2020 Screening for malign ant neoplasm of colon [facility] Start: 07-30-2020 Screening for malign ant neoplasm of colon [facility] Start: 01-20-2020 Echocardiography Echocardiogram [facility] [address] [place] Work Phone: Start: 01-06-2020 Influenza vaccination INFLUENZA (#1) [facility] Start: 12-04-2019 Annual Wellness Visi t (AWV) Annual Wellness Visit (AWV) [facility] Start: 12-04-2019 Creatinine monitoring Creatinine mon itoring [facility] Work Phone: Start: 12-04-2019 Hepatitis C screen Hepatitis C scree n [facility] Work Phone: Comment on above: Postponed from 05/06 (Patient Refused) Start: 12-04-2019 Potassium monitoring Potassium monit oring [facility] Work Phone: Start: 12-04-2019 Prostate specific an tigen measurement Prostate Specific Antigen (PSA) Screening or Monitoring [facility] Start: 12-04-2019 Shingles Vaccine (1 of 2) Day gles Vaccine (1 of 2) [facility] Work Phone: Comment on above: Postponed from 05/06 (Patient Refused) Start: 06-07-2019 Colon Cancer Screen FIT/FOBT [facility] Work Phone: Start: 08-14-2017 LIPID SCREEN LIPID SCREEN [facility] Start: 2017 ADVANCE DIRECTIVE DISCUSSION ADVANCE DIRECTIVE DISCUSSION [facility] Start: 2017 PNEUMOCOCCAL: 65+ (1 - PCV) PNEUMOCOCCAL: 65+ (1 - PCV) [facility] Start: 2017 PNEUMOVAX AGE 65 AND OVER WITH 5YR LOOKBACK (#1) PNEUMOVAX AGE 65 AND OVER WITH 5YR LOOKBACK (#1) [facility] Start: 04-14-2016 DIABETES SCREEN DIABETES SCREEN [facility] Start: 2012 RSV Immunization age d 60 or older (1 - 1-dose 60+ series) RSV Immunization aged 60 or older (1 - 1-dose 60+ series) [facility] Start: 2007 PROSTATE CANCER SCRE ENING DISCUSSION PROSTATE CANCER SCREENING DISCUSSION [facility] Start: 2002 Shingles vaccine (1 of 2) Day gles vaccine (1 of 2) [facility] Start: 2002 SHINGRIX VACCINE (1 of 2) DAY GRIX VACCINE (1 of 2) [facility] Start: 2002 Tuberculosis screening COLOREC MONIQUE CANCER SCREENING,SEE MODIFIER [facility] Start: 2002 Zoster Vaccines (1 of 2) Zoste r Vaccines (1 of 2) [facility] Start: 1997 COLOGUARD (FIT-DNA) COLOGUARD (FIT-D NA) [facility] Start: 1997 Colonoscopy COLONOSCOPY [facility] Start: 1997 COLORECTAL CANCER SCREENING COLORECTAL CANCER SCREENING [facility] Start: [address] COLONOGRAPHY [facility] Start: 1997 FECAL OCCULT BLOOD FECAL OCCULT BLOO D [facility] Start: 1997 Screening for malign ant neoplasm of colon [facility] Start: 1997 SIGMOIDOSCOPY SIGMOIDOSCOPY [facility] Start: 1987 Diabetes screen Diabetes screen [facility] Start: 1971 Urine microalbumin profile DTAP,TDAP,TD (1 - Tdap) [facility] Start: 1970 ANNUAL PCP TEAM PET ADOPTION COUNSELOR KEESHA DISEASE VISIT ANNUAL PCP TEAM CHRONIC DISEASE VISIT [facility] Start: 1970 BP CONTROLLED (<130/80) BP CONTROLLE D (<130/80) [facility] Start: 1970 Diabetes mellitus screening Diabetes Screening [facility] Start: 1970 HEPATITIS C SCREENING HEPATITIS C SC PHIL [facility] Start: 1970 Hepatitis C screening [facility] Start: 1964 Adult depression screening assessment DEPRESSION SCREENING [facility] Start: 1964 Depression Screen Depression Screen [facility] Start: 1962 Diabetic foot examination Diabetes: Foot Exam [facility] Start: 1962 Glaucoma screening Diabetes: R etinopathy Screening [facility] Start: 1962 Preventive dental service Diabetes: Dental Exam [facility] Start: 1950 Echocardiography Echocardiogram [facility] Start: 1950 Hemoglobin A1c measurement Diabetes: Hemoglobin A1C [facility] Start: 1952 Lipid panel Lipid Panel [facility] Start: 1952 Screening for malign ant neoplasm of colon [facility] Bacteria identified in Urine by Culture Urine Culture [facility] Work Phone: End: 03-02-2022 CBC W Auto Differential panel - Blood CBC with Auto Differential Lab Routine One Time for 1 Occurrences starting 03/02/2022 until 03/02/2022 [facility] Work Phone: Comment on above: One Time for 1 Occur rences starting 03/02/2022 until 03/02/2022 End: 03-02-2022 Comprehensive metabolic 2000 panel - Serum or Plasma Comprehensive Metabolic Panel Lab STAT One Time for 1 Occurrences starting 03/02/2022 until 03/02/2022 [employer] Work Phone: Comment on above: One Time for 1 Occur rences starting 03/02/2022 until 03/02/2022 End: 09-06-2023 CT Abdomen WO contrast [facility] [employer] Work Phone: Comment on above: Once for 1 Occurrenc es starting 09/06/2023 until 09/06/2023 End: 12-22-2021 Culture, Blood 2 Culture, Blood 2 Microbiology STAT One Time for 1 Occurrences starting 12/22/2021 until 12/22/2021 [employer] Work Phone: Comment on above: One Time for 1 Occur rences starting 12/22/2021 until 12/22/2021 End: 12-22-2021 Microscopic examination of blood, culture Culture, Blood Microbiology STAT One Time for 1 Occurrences starting 12/22/2021 until 12/22/2021 [email or web address] Work Phone: Comment on above: One Time for 1 Occur rences starting 12/22/2021 until 12/22/2021 Microscopic examinat ion of blood, culture Culture, Blood Microbiology STAT 12/22/2021 12:22 AM EDT [facility] Work Phone: Oxygen therapy [[facility] Data Set] Initiate Oxygen Therapy Protocol Respiratory Care Routine As Needed until discontinued starting 10/21/2021 [facility] Comment on above: As Needed until disc ontinued starting 10/21/2021 Protime-INR Protime-INR Lab Routine Daily until discontinued starting 10/23/2021, 7 completed [facility] Work Phone: Comment on above: Daily until disconti nued starting 10/23/2021, 7 completed End: 03-02-2022 Protime-INR Protime-INR Lab Routine One Time for 1 Occurrences starting 03/02/2022 until 03/02/2022 [facility] Work Phone: Comment on above: One Time for 1 Occur rences starting 03/02/2022 until 03/02/2022 Spirometry panel Incentive stef metry Respiratory Care Routine Daily until discontinued starting 10/21/2021 [facility] Work Phone: Comment on above: Daily until disconti nued starting 10/21/2021 End: 10-21-2021 Wound ostomy eval Wound ostomy eval Wound Ostomy Routine One Time for 1 Occurrences starting 10/21/2021 until 10/21/2021 [facility] Work Phone: Comment on above: One Time for 1 Occur rences starting 10/21/2021 until 10/21/2021 [facility] NEGATED: Highlighted row has been ruled out! Planned Goals not documented [facility] Work Phone: Immunizations Immunization Date Immunization Notes Care Provider Christopher chu 03-04-2019 influenza, high dose seasonal, preservative-free Sarika Salas [facility] 12-03-2018 pneumococcal polysac charide vaccine, 23 valent Sarika Salas [facility] Work Phone: 01-25-2018 influenza, high dose seasonal, preservative-free Sarika Salas [facility] 02-14-2017 influenza, injectabl e, quadrivalent, contains preservative Sarika Salas [facility] 09-22-2016 pneumococcal conjuga te vaccine, 13 valent Sarika Salas [facility] Work Phone: 09-22-2016 tetanus toxoid, redu patrice diphtheria toxoid, and acellular pertussis vaccine, adsorbed Sarika ARMENDARIZ Work Phone: 02-24-2016 influenza, injectabl e, quadrivalent, contains preservative Sarika ARMENDARIZ 02-08-2015 influenza virus vacc ine, unspecified formulation Sarika ERAZOA Work Phone: 02-04-2013 pneumococcal Conjuga te, unspecified formulation Sarika ARMENDARIZ Work Phone: Payers Date Payer Category Payer Unknown [id number] 03-19-2024 Self-pay 01-05-2022 Medicaid 01-05-2022 Medicare 01-05-2022 Medicare [id number] 10-05-2021 Medicaid [id number] 06-07-2021 Medicare UHC MEDICARE UHC DUAL COMPLETE HMO SNP [id number] 06/07/2021-Present [phone] [address] [place] [address] Medicare [id number]. 2.7.3.243135.315 06-07-2021 Medicare UHC MEDICARE UNITEDHEALTHCARE DUAL COMPLETE [id number] 06/07/2021-Present [phone] [address] [place] [address] [id number]. 2.7.3.139446.315 11-05-2019 Medicare UHC AARP MEDICAR E [facility] AARP MEDICARE HMO [id number] 11/05/2019-Present O [id number] [id number]. 2.7.3.233340.315 07-06-2015 Medicare UHC MEDICARE UHC MEDICARE COMPLETE xxxxxxxxx 2015-Present xxxxxxxxx 1.2.840.497060.1.13.239. 2.7.3.769820.315 1950 Unknown [id number] 2.16.840.1.573187.3.579. 2.668 1950 Unknown [id number] 2.840.1.782837.3.579. 2.668 1950 Unknown [id number] 2..840.1.647350.3.579. 2.05-06-1950 Unknown [id number] .840.1.197123.3.579. 2.05-06-1950 Unknown [id number] 2.840.1.161201.3.579. 2.05-06-1950 Unknown [id number] 2.840.1.254665.3.579. 2.8 1950 Unknown [id number] 2.840.1.544392.3.579. 2.8 Private Health Insurance Unknown Unknown [id number] 2.840.1.068281.3.579. 2.462 Unknown [id number] 2.840.1.250033.3.579. 2.462 Unknown [id number] 2.840.1.832519.3.579. 2.462 Unknown [id number] 2.840.1.355311.3.579. 2.462 Unknown [id number] 2.840.1.249744.3.579. 2.462 Unknown [id number] .840.1.324253.3.579. 2.462 Unknown [id number] 2.840.1.636787.3.579. 2.462 Unknown [id number] 2.840.1.822861.3.579. 2.462 Unknown [id number] 2.840.1.827516.3.579. 2.462 Unknown [id number] 2.840.1.302275.3.579. 2.462 Unknown [id number] 2.16.840.1.279165.3.579. 2.462 Unknown [id number] 2.16.840.1.347441.3.579. 2.462 Unknown [id number] 2.16.840.1.773335.3.579. 2.462 Unknown [id number] 2.16.840.1.525377.3.579. 2.462 Unknown [id number] 2.16.840.1.657898.3.579. 2.462 Unknown [id number] 2.16.840.1.991945.3.579. 2.462 Unknown [id number] 2.840.1.593279.3.579. 2.462 Unknown [id number] 2..840.1.656924.3.579. 2.462 Unknown [id number] 2.840.1.873079.3.579. 2.462 Unknown [id number] 2.840.1.836510.3.579. 2.462 Unknown [id number] 2.840.1.761331.3.579. 2.462 Unknown [id number] 2.16.840.1.910764.3.579. 2.462 Unknown [id number] 2.16.840.1.500594.3.579. 2.462 Unknown [id number] 2.840.1.471299.3.579. 2.462 Unknown [id number] 2..840.1.554127.3.579. 2.462 Unknown [id number] 2.16.840.1.360201.3.579. 2.462 Unknown [id number] 2.16.840.1.750754.3.579. 2.462 Unknown [id number] 2.16.840.1.974744.3.579. 2.462 Unknown [id number] 2.840.1.896214.3.579. 2.462 Unknown [id number] 2.16.840.1.408346.3.579. 2.462 Unknown [id number] 2.16.840.1.119333.3.579. 2.462 Unknown [id number] 2.16.840.1.233693.3.579. 2.462 Unknown [id number] 2.16840.1.019641.3.579. 2.462 Unknown [id number] 2.16.840.1.697533.3.579. 2.462 Unknown [id number] 2.840.1.698487.3.579. 2.462 Unknown [id number] 2.840.1.788443.3.579. 2.462 Unknown [id number] 2.840.1.599455.3.579. 2.462 Unknown [id number] 2.840.1.988306.3.579. 2.462 Unknown [id number] 2.840.1.003391.3.579. 2.462 Unknown [id number] 2.840.1.331103.3.579. 2.462 Unknown [id number] 2.840.1.199099.3.579. 2.462 Unknown [id number] 2.840.1.260316.3.579. 2.462 Unknown [id number] 2.840.1.537382.3.579. 2.462 Unknown [id number] 2.840.1.887839.3.579. 2.462 Unknown [id number] 2.840.1.350161.3.579. 2.462 Unknown [id number] 2.840.1.531176.3.579. 2.462 Unknown [id number] 2.16840.1.283360.3.579. 2.462 Unknown [id number] 2.16.840.1.764945.3.579. 2.462 Unknown [id number] 2.16.840.1.715211.3.579. 2.462 Unknown [id number] 2.16.840.1.242640.3.579. 2.462 Unknown [id number] 2.16.840.1.595927.3.579. 2.462 Unknown [id number] 2.16.840.1.486519.3.579. 2.462 Unknown [id number] 2.16.840.1.193381.3.579. 2.462 Unknown [id number] 2..840.1.270640.3.579. 2.462 Unknown [id number] 2..840.1.444263.3.579. 2.462 Unknown [id number] 2.840.1.043469.3.579. 2.462 Unknown [id number] 2..840.1.667301.3.579. 2.462 Unknown [id number] 2..840.1.759399.3.579. 2.462 Unknown [id number] 2..840.1.764781.3.579. 2.462 Unknown [id number] 2..840.1.149880.3.579. 2.462 Unknown [id number] 2.840.1.274975.3.579. 2.462 Unknown [id number] 2..840.1.817534.3.579. 2.462 Unknown [id number] 2..840.1.785116.3.579. 2.462 Unknown [id number] 2.16.840.1.539322.3.579. 2.462 Unknown [id number] 2.16.840.1.999758.3.579. 2.462 Unknown [id number] 2..840.1.374827.3.579. 2.462 Unknown [id number] 2.16.840.1.218942.3.579. 2.462 Unknown [id number] 2.16.840.1.988277.3.579. 2.462 Unknown 20988147 2.16.840.1.782917.3.579. 2.462 Unknown [id number] 2.16.840.1.437396.3.579. 2.462 Unknown [id number] 2.16.840.1.418446.3.579. 2.462 Unknown [id number] 2.16.840.1.999522.3.579. 2.462 Unknown [id number] 2.16.840.1.042621.3.579. 2.462 Unknown [id number] 2.16.840.1.081373.3.579. 2.462 Unknown 71678194 2.16840.1.140404.3.579. 2.462 Unknown [id number] 2.16840.1.213435.3.579. 2.462 Unknown 51630003 2.16.840.1.915704.3.579. 2.462 Unknown 87832797 2.16.840.1.406513.3.579. 2.462 Unknown [id number] 2.16.840.1.415422.3.579. 2.462 Unknown 50802039 2.16.840.1.121084.3.579. 2.462 Unknown [id number] 2.16.840.1.007079.3.579. 2.462 Unknown [id number] 2.16.840.1.017946.3.579. 2.462 Unknown [id number] 2.16.840.1.230665.3.579. 2.462 Unknown [id number] 2.16.840.1.949463.3.579. 2.462 Unknown [id number] 2.16.840.1.372527.3.579. 2.462 Unknown [id number] 2.16.840.1.442355.3.579. 2.462 Unknown [id number] 2.16.840.1.254887.3.579. 2.462 Unknown 19557335 2.16.840.1.593648.3.579. 2.462 Unknown [id number] 2.16.840.1.223520.3.579. 2.462 Unknown [id number] 2.16.840.1.384776.3.579. 2.462 Unknown 37202022 2.16.840.1.597090.3.579. 2.462 Unknown [id number] 2.16.840.1.817077.3.579. 2.462 Unknown 69099342 2.16.840.1.187658.3.579. 2.462 Unknown [id number] 2.16.840.1.393625.3.579. 2.462 Unknown [id number] 2.16.840.1.533906.3.579. 2.462 Unknown 00565104 2.16.840.1.824517.3.579. 2.462 Unknown 27354011 2.16.840.1.085923.3.579. 2.462 Unknown 60395300 2.16.840.1.097576.3.579. 2.462 Unknown [id number] 2.16.840.1.234370.3.579. 2.462 Unknown 26891212 2.16.840.1.056612.3.579. 2.462 Unknown [id number] 2.16.840.1.676384.3.579. 2.462 Unknown [id number] 2.16.840.1.243683.3.579. 2.462 Unknown [id number] 2.16.840.1.319889.3.579. 2.462 Unknown [id number] 2.16.840.1.773477.3.579. 2.462 Unknown [id number] 2.16.840.1.368779.3.579. 2.462 Unknown [id number] 2.16.840.1.374395.3.579. 2.462 Unknown [id number] 2.16.840.1.247987.3.579. 2.462 Unknown [id number] 2.16.840.1.767692.3.579. 2.462 Unknown [id number] 2.16.840.1.758458.3.579. 2.462 Unknown [id number] 2.16.840.1.313132.3.579. 2.462 Unknown [id number] 2.16.840.1.765698.3.579. 2.462 Unknown [id number] 2.16.840.1.748974.3.579. 2.462 Unknown [id number] 2.16.840.1.351279.3.579. 2.462 Unknown [id number] 2.16.840.1.055210.3.579. 2.462 Unknown [id number] 2.16.840.1.574627.3.579. 2.462 Social History Date Type Detail Facility Start: 05-23-2018 End: 05-19-2019 Tobacco smoking status KYIS Former smoker [employer] Work Phone: History of tobacco use Cigar Smoker [employer] Work Phone: Start: 05-19-2019 End: 08-13-2023 Cigarettes smoked current (pack per day) - Reported [employer] Work Phone: Start: 05-19-2019 End: 08-13-2023 Alcohol intake Current non-drinker of alcohol (finding) [employer] Work Phone: Start: 12-03-2018 History SDOH Physica l Activity DPW 7 [employer] Work Phone: Start: 12-03-2018 History SDOH Physica l Activity MPS 9 [facility] Work Phone: Start: 12-03-2018 End: 10-31-2021 History SDOH Stress 1 [facility] Work Phone: Start: 12-03-2018 History SDOH Financial 5 [facility] Work Phone: Start: 12-03-2018 History SDOH Transpo rt Med 2 [facility] Work Phone: Start: 1950 Sex Assigned At Not on file [facility] Work Phone: Start: 08-13-2012 End: 11-13-2019 Tobacco smoking status NHIS Never smoker [facility] Start: 05-23-2018 End: 11-13-2019 Tobacco use and exposure Never used [facility] Start: 11-13-2019 History SDOH Alcohol Std Drinks 98 [facility] Start: 10-11-2021 End: 02-15-2022 Exposure to SARS-CoV-2 (event) Not sure [facility] Start: 1950 Sex Assigned At Male [facility] History of tobacco use Current smoker [facility] Work Phone: History of tobacco use Cigarette Smoker [facility] Work Phone: Start: 10-31-2021 End: 08-13-2023 Tobacco use panel [facility] Tobacco smoking stat us KYIS Unknown if ever smoked [facility] Work Phone: Start: 07-11-2024 End: 08-21-2024 Sex Male (finding) [facility] NEGATED: Highlighted row - - [facility] Work Phone: Medical Equipment Procedure Code Equipment Code Equipment Origin al Text Equipment Identifier Dates Kit Bactiseal Woodard maria guadalupe Silicone Barium Catheter Shunt Sterile - [id number] Start: 06-08-2021 Catheter Bactise al 14cm External Drainage Csf Sterile Latex Free - [id number] Start: 08-05-2021 Valve Certas Shannon nt Inline - [id number] Start: 06-08-2021 Valve Certas Shannon nt Inline - [id number] Start: 08-05-2021 Cass snow [facility] - [id number] Start: 08-09-2021 Goals Date Patient [...] status health issues are not documented Disease [facility] Physician [facility] Work Phone: Mental Status Date Assessment Result Facility NEGATED: Highlighted row Cognitive function [Interpretation] Cognitive status health issues are not documented Disease [facility] Work Phone: Clinical [...] Hydrocephalus, adult (CMS/HCC) (HCC) Kidney stone Neuropathy SHEET [employer] SUPERVISOR (ventriculoperitoneal) shunt status Past Surgical History: [...] 09/13/23 12:05 PM documented in this encounter [facility] 08-31-2023 Note S: Shanthi from [facility] spoke with [facility] nurse regarding voiding trial procedure. [...] Protocols used: Information Only Call - [facility] Telephone encounter Note S: Shanthi from [facility] spoke with [facility] nurse regarding voiding trial procedure. [...] Protocols used: Information Only Call - No Hzvdod-FKBKC-EO [facility] 08-31-2023 Miscellaneous Notes S: Shanthi from [facility] [place] spoke with [facility] nurse regarding voiding trial [...] Protocols used: Information Only Call - No [id number]-SWNUA-WJ documented in this encounter [facility] 08-29-2023 Telephone encounter Note Chidi on greg vm to advise them to call the number for the post manager to get clarification, and to call back with further questions [facility] 08-29-2023 Miscellaneous Notes Chidi on greg vm to advise them to call the number for the post manager to get clarification, and to call back with further questions Yes, they will need to call the number given to them. Please advise Name of caller: Shanthi Contact phone number: [phone] Relationship to Patient: patient Provider: MD Quinn Practice: [facility] Chief Complaint/Reason for Call: Shanthi called [...] to reach out to call Maury Cedeño Telephone Directory Distributor Driver at [facility] [phone] to get clarifications. [facility] did reach back out to [facility] and advised and provider Maury's #. Please advise Best time of day caller can be reached: Any Patient advised that office/PCP has 24-48 business hours to return their call: N/A documented in this encounter [facility] 08-27-2023 Telephone encounter Note Yes, they will need to call the number given to them. [facility] 08-27-2023 Telephone encounter Note Please advise [facility] 08-21-2023 Telephone encounter Note Name of caller: Shanthi Contact phone number: [phone] Relationship to Patient: patient Provider: MD Quinn Practice: [facility] Chief Complaint/Reason for Call: Shanthi called [...] to reach out to call Maury Cedeño Telephone Directory Distributor Driver at [facility] [phone] to get clarifications. [facility] did reach back out to [facility] and advised and provider Maury's #. 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 Changed appt to 08/13/23 per [facility] only avail time for transport, first avail with DR Buck at 10:00 AM. [facility] 06[facility]25-2023 [facility] [place] has to be made further out, pt being transported by cot. Changed appt to 08/13/23 per [facility] only avail time for transport, first avail with DR Buck at 10:00 AM. documented in this encounter [facility] 12-22-2021 Hospital Discharge instructions SANIA Lou - 12/22/2021 2:32 AM EDT Please take medication as prescribed Please follow up with your Physicians as instructed in this discharge paperwork Thank you for choosing [facility] I appreciate your patience Please return to the emergency department if your symptoms worsen, or new symptoms develop as discussed documented in this encounter [facility] Work Phone: 10-29-2021 Note Hospitalist [...] abnormality and previous indwelling tubing history of SHEET METAL SHOP SUPERVISOR shunt ? #?Bilateral lower extremity wounds-wound [...] Medications These medications were sent to [facility] [address] [place] [address] [address] [facility] - P [phone] - F [phone] [address] [facility] [address] ? levETIRAcetam 750 MG tablet ? warfarin 6 MG tablet Recommended Follow-up: No follow-up provider specified. Complexity of Follow up: [] Moderate Complexity: follow up within 7-14 calendar days (41596) [x] Severe Complexity: follow up within 7 calendar days (17078) Follow up Testing, Pending results or Referrals [...] Increased fatigue or (more content not included)... [facility] 10-29-2021 Hospital Discharge instructions Fabi Subramanian RN - 10/29/2021 12:03 PM EDT Continuity of Care Form Patient Name: Andrew Sifuentes : 1950 Admit date: 10/21/2021 Discharge date: 10/29/2021 Code Status Order: Full Code Advance Directives: Admitting Physician: May Cash MD PCP: MONIKA STALEY MD Discharging Nurse: Fabi [facility] Hospital Unit/Room#: 146/1461 Discharging Unit Emergency Contact: Extended Emergency Contact Information Primary Emergency Contact: NelsonTriny Address: [address] [place] [address] [address] [place], [place] [id number] [place] [address] Relation: Brother/Sister Secondary Emergency Contact: Melissa Sifuentes Mobile Relation: Child Preferred language: Spanish Past Surgical History: Past Surgical History: Procedure Laterality Date BRAIN SURGERY CHOLECYSTECTOMY COLONOSCOPY HERNIA REPAIR Immunization History: Immunization History Administered Date(s) Administered Influenza Virus Vaccine 02/08/2015 Influenza, High Dose (Fluzone 65 yrs and older) 01/25/2018, 03/04/2019 Influenza, Quadv, IM, (6 mo and older Fluzone, Flulaval, Fluarix and 3 yrs and older Afluria) 02/24/2016, 02/14/2017 Pneumococcal Conjugate 13-valent ([id number]) 09/22/2016 Pneumococcal Conjugate Vaccine 02/04/2013 Pneumococcal Polysaccharide ([id number]) 12/03/2018 Tdap (Boostrix, Adacel) 09/22/2016 Active Problems: Patient Active Problem List Diagnosis Code Flank pain, acute R10.9 Night muscle spasms M62.838 Chronic fatigue R53.82 Hydrocephalus ([facility]) G91.9 Neuropathy G62.9 Erectile dysfunction N52.9 Fluid retention in tissues R60.9 Hyperlipidemia E78.5 Morbidly obese ([facility]) E66.01 Leg wound, left S81.802A DVT, lower extremity, recurrent, unspecified laterality ([facility]) I82.409 Moderate malnutrition ([facility]) E44.0 History of seizures Z87.898 [...] Dependent Dressing Dependent Toileting Dependent Feeding Dependent Compliance Monitor Dependent Med Delivery whole in pudding Wound [...] Q4H prn SOB Oxygen Therapy: {Therapy; copd oxygen:50347} Ventilator: { CC Vent List:[id number]} Rehab Therapies: {THERAPEUTIC INTERVENTION:[id number]} Weight Bearing Status/Restrictions: Weight Bearing - Patient was bedbound in hospital Other Medical Equipment (for information only, NOT a DME order): wheelchair, hospital bed, and Boaz Other Treatments: Patient's personal belongings (please select all that are sent with patient): {[facility] DME Belongings:[id number]} RN SIGNATURE: CASE MANAGEMENT/SOCIAL WORK SECTION Inpatient Status Date: Readmission Risk Assessment Score: Readmission Risk Risk of Unplanned Readmission: 11 Discharging to Facility/ Agency Name: Address: Phone: Fax: Dialysis Facility (if applicable) Name: Address: Dialysis Schedule: Phone: Fax: Physician/Internist/Health Insurance Sales Agent signature: {Esignature:[id number]} PHYSICIAN SECTION Prognosis: Fair Condition at Discharge: Stable Rehab Potential (if transferring to Rehab): Fair Recommended Labs or Other Treatments After Discharge: Coumadin based on INR target range 2-3, Coumadin 6 mg on 10/30 and 10/31, recheck INR 11/01 and notify physician, ideally should be on 6 mg alt with 7 mg daily, PT/OT, follow-up with neurologist in 1 month, continue [facility] Physician Certification: I certify the above information and transfer of Andrew Sifuentes is necessary for the continuing treatment of the diagnosis listed and that he requires Alf Facility for greater than 30 days. Update Admission H&P: No change in H&P PHYSICIAN SIGNATURE: documented in this encounter [facility] Work Phone: 10-29-2021 History of Present illness Narrative [facility] Anticoagulation Management Service ([facility]) Inpatient Warfarin Consult HPI: Andrew Sifuentes is a 71 y.o. 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 Past Medical History: Diagnosis Date ED (erectile dysfunction) Hemorrhoids Hydrocephalus, adult (HCC) Kidney stone Neuropathy SHEET METAL SHOP SUPERVISOR (ventriculoperitoneal) shunt status Patient is newly referred to the [facility] clinic for warfarin management. Pt [...] PharmD [facility] Consult Service is available daily [phone]. Please search for covering pharmacist name via [employer]ocyte or Groups --> Pharmacy --> Anti-Coagulation Consult Pharmacist (on 3rd page). If no response via Cryoocyte, please page [phone]. Patient seen and chart reviewed. Afebrile. Adequate oxygenation on room air. Baseline mentation. Exam stable X 5 systems. Hgb 11.0 WBC 10.0 K Platelets 344 K Creatinine 0.71 GFR > 90 cc/min. NSE 20.8 with hemolysis. PT 30.8 INR 3.1 Conversion to Warfarin has been completed. APS w/u pending. Discussed with patient's staff mine warfare officer. Will continue to monitor. Total visit time > 35 minutes. Neurology Attending Progress Note SUBJECTIVE: No issues overnight. Care discussed with nursing staff/patient's medical team MRI brain reported nothing acute. Assessment and Plan: 71 yr M with H obstructive hydrocephalus s/p SHEET METAL SHOP SUPERVISOR shunt in 1987, needing multiple revisions [...] normal limits and both old and new SHEET METAL SHOP SUPERVISOR shunt tubing noted. At present patient is awake, follows commands, was able to tell his name, and that he was in hospital but not oriented to time. Per documentation patient had NCSE in May 2021, was on Vimpat, but it was discontinued as there was no evidence of recurrent seizures in july 2021 by Neurology at [facility], per daughter patient was on Dilantin [...] normal limits and both old and new SHEET METAL SHOP SUPERVISOR shunt tubing noted -EEG mild to [...] May 2021 when he was admitted to [facility]. Per daughter she would want patient [...] the weekend, primary hospitalist team to contact rn documentation specialist Neurology at [facility] for any weekend neurological issues related to the patient and if need to discuss any neurological test results/findings. Other deal in house Neurology coverage will be available from Sunday at [facility] and please call rn documentation specialist Neurology back on Sunday if need further assistance. This note has been generated using [employer] dictation software. It may contain incorrect words, punctuation's and spellings that were not noted in the review of the note prior to signing. This note has been generated using [employer] dictation software. It may contain incorrect words, [...] eGFR >90.0 >60 mL/min EGFR IF NonAfrican Macanese >90.0 >60 mL/min Calcium 9.1 8.4 - [...] 26 AST 24 BILITOT 0.4 LABALBU 3.7 @BRIEFLAB([facility]) ABGs: )No results for input(s): [...] Radiology ACCESSION EXAM DATE/TIME PROCEDURE ORDERING PROVIDER [id number] 10/21/2021 15:30 EDT CR Calcaneus 2+ Views [id number] -HELENA, SHRUTHI Left CPT code 08243 Reason For Exam (CR Calcaneus 2+ Views [...] Result Date: 10/26/2021 [id number] Tomography ACCESSION EXAM DATE/TIME PROCEDURE ORDERING PROVIDER [id number] 10/26/2021 11:[address] Head or Brain w/o JUNIE PINEDA ALLISON Contrast CPT code 12562 Reason For Exam (CT Head or Brain w/o Contrast) hydrocephalus. thank you Report CLINICAL INFORMATION: Hydrocephalus. Shunt. 3 mm axial cuts through the head are obtained without IV contrast. The examination is compared to a previous study dated 06/29/2014. FINDINGS: Old SHEET METAL SHOP SUPERVISOR shunt tubing is noted bilaterally. The [...] are clear. IMPRESSION: 1. Old and new SHEET METAL SHOP SUPERVISOR shunt tubing. 2. No hydrocephalus. 3. [...] Imaging ACCESSION EXAM DATE/TIME PROCEDURE ORDERING PROVIDER [id number] 10/23/2021 11:08 EDT MRI Abdomen w/o Contrast WING SRIVASTAVA CPT code 37610 Reason For Exam (MRI Abdomen w/o Contrast) [...] Result Date: 10/21/2021 [id number] Medicine ACCESSION EXAM DATE/TIME PROCEDURE ORDERING PROVIDER [id number] 10/21/2021 07:55 EDT NM Pulmonary Perfusion [id number] MAY BOGGS w/ Vent Aerosol CPT code 14575 A9567 Reason For Exam (NM Pulmonary Perfusion [...] Brachial Indices Extremity Bilateral Result Date: 10/22/2021 [facility] --- Ankle Brachial Index Report Patient DO GurpreetB: 1950 Study 10/21/2021 Name: Andrew Gonzalez (71yrs) Date: Age: 71 Account: [id number] Gender: M Loc: 444W BP: Ordering Physician: Shruthi Malik [employer]: Rody Cross RDMS, RVT Interpreting Physician: Carina Call --- Location: [facility] --- Indications: Foot wounds. Originally ordered as a full PVR. Ordering STATION CLEANING PORTER had to modify the order to ABIs [...] supine position. Images were obtained using a EDUSs vascular ultrasound machine. --- Arterial pressure indices: [...] EXTREMITY BILATERAL VENOUS DUPLEX Result Date: 10/21/2021 [facility] --- Lower Extremity Venous Duplex Report Patient DO GurpreetB: 1950 Study 10/21/2021 Name: Andrew Gonzalez (71yrs) Date: Age: 71 Account: [id number] Gender: M Loc: 444 BP: Ordering Physician: May Cash [employer]: Rody Cross RDMS, T Interpreting Physician: Carina Call --- Location: [facility] --- Indications: Bilateral lower leg edema. [...] supine position. Images were obtained using a EDUSs vascular ultrasound machine. --- Venous flow and [...] Radiology ACCESSION EXAM DATE/TIME PROCEDURE ORDERING PROVIDER [id number] 10/21/2021 08:16 EDT CR Chest 1 View Frontal [id number] MAY BOGGS CPT code 09842 Reason For Exam (CR Chest 1 View [...] Tomography ACCESSION EXAM DATE/TIME PROCEDURE ORDERING PROVIDER [id number] 10/22/2021 13:[address] Abdomen/Pelvis (No SRIVASTAVA, WING PO, No IV) CPT code 88346 Reason For Exam (CT Abdomen/Pelvis (No PO, [...] Result Date: 10/27/2021 [id number] Magnetic Resonance Imaging ACCESSION EXAM DATE/TIME PROCEDURE ORDERING PROVIDER [id number] 10/27/2021 13:14 EDT MRI Brain w/o Contrast UNASSIGNED, UNASSIGNED CPT code 68542 Reason For Exam (MRI Brain w/o Contrast) stroke Patient has SHEET METAL SHOP SUPERVISOR shunt in place, please follow Radiology [...] included. Hospitalist Progress Note 10/28/2021 11:37 AM [phone]: Please page me @ [phone] for patient care issues. [phone]: Please page heel former for any issues@ night Subjective: Admit [...] abnormality and previous indwelling tubing history of SHEET METAL SHOP SUPERVISOR shunt # Bilateral lower extremity wounds-wound [...] Services This report was created using the [employer] voice-activated system. Despite prompt dictation and careful editorial review, there may be subtle contextual errors in this report, due to misrecognition of the spoken word. Speech Language Pathology Facility/Department: [facility] Dysphagia Treatment Note [...] and gloves were worn throughout this session. [facility] Anticoagulation Management Service ([facility]) Inpatient Warfarin Consult HPI: Andrew Sifuentes is a 71 y.o. 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 Past Medical History: Diagnosis Date ED (erectile dysfunction) Hemorrhoids Hydrocephalus, adult (HCC) Kidney stone Neuropathy SHEET METAL SHOP SUPERVISOR (ventriculoperitoneal) shunt status Patient is newly referred to the [facility] clinic for warfarin management. Pt [...] interactions and adjust dose accordingly. 3. [facility] will manage while inpatient and sign off at discharge. Patient resides in a SNF. 4. Will provide warfarin education including [facility] warfarin booklet, if appropriate. Brionna Le, PharmD candidate Josie Gupta RPh, PharmD [facility] Consult Service is available daily [phone]. Please search for covering pharmacist name via [employer]oocyte or Groups --> Pharmacy --> Anti-Coagulation Consult Pharmacist (on 3rd page). If no response via [employer]oocyte, please page [phone]. Follow up b/l foot wounds. No new [...] yr M with PMH obstructive hydrocephalus s/p SHEET METAL SHOP SUPERVISOR shunt in 1987, needing multiple revisions [...] normal limits and both old and new SHEET METAL SHOP SUPERVISOR shunt tubing noted. At present patient is awake, follows commands, was able to tell his name, and that he was in hospital but not oriented to time. Per documentation patient had NCSE in May 2021, was on Vimpat, but it was discontinued as there was no evidence of recurrent seizures in july 2021 by Neurology at [facility], per daughter patient was on Dilantin [...] normal limits and both old and new SHEET METAL SHOP SUPERVISOR shunt tubing noted -EEG mild to [...] May 2021 when he was admitted to [facility]. Per daughter she would want patient [...] interim. This note has been generated using [employer] dictation software. It may contain incorrect words, punctuation's and spellings that were not noted in the review of the note prior to signing. This note has been generated using [employer] dictation software. It may contain incorrect words, [...] LABALBU, AMYLASE, LIPASE in the last 72 hours.@BRIEFLAB([facility]) ABGs: )No results for input(s): [...] Radiology ACCESSION EXAM DATE/TIME PROCEDURE ORDERING PROVIDER [id number] 10/21/2021 15:30 EDT CR Calcaneus 2+ Views [id number] -SHRUTHI MALIK CPT code 56987 Reason For Exam (CR Calcaneus 2+ Views [...] Tomography ACCESSION EXAM DATE/TIME PROCEDURE ORDERING PROVIDER [id number] 10/26/2021 11:[address] Head or Brain w/o JUNIE PINEDA, SARINA Contrast CPT code 26265 Reason For Exam (CT Head or Brain w/o Contrast) hydrocephalus. thank you Report CLINICAL INFORMATION: Hydrocephalus. Shunt. 3 mm axial cuts through the head are obtained without IV contrast. The examination is compared to a previous study dated 06/29/2014. FINDINGS: Old SHEET METAL SHOP SUPERVISOR shunt tubing is noted bilaterally. The [...] are clear. IMPRESSION: 1. Old and new SHEET METAL SHOP SUPERVISOR shunt tubing. 2. No hydrocephalus. 3. [...] Imaging ACCESSION EXAM DATE/TIME PROCEDURE ORDERING PROVIDER [id number] 10/23/2021 11:08 EDT MRI Abdomen w/o Contrast WING SRIVASTAVA CPT code 32442 Reason For Exam (MRI Abdomen w/o Contrast) [...] Medicine ACCESSION EXAM DATE/TIME PROCEDURE ORDERING PROVIDER [id number] 10/21/2021 07:55 EDT NM Pulmonary Perfusion [id number] -MAY CASH w/ Vent Aerosol CPT code 02858 A9567 Reason For Exam (NM Pulmonary Perfusion [...] Brachial Indices Extremity Bilateral Result Date: 10/22/2021 [facility] --- Ankle Brachial Index Report Patient DO GurpreetB: 1950 Study 10/21/2021 Name: Andrew Gonzalez (71yrs) Date: Age: 71 Account: [id number] Gender: M Loc: 444W BP: Ordering Physician: Shruthi Malik [employer]: Rody Cross RDMS, RVT Interpreting Physician: Carina Call --- Location: [facility] --- Indications: Foot wounds. Originally ordered as a full PVR. Ordering [employer]TER had to modify the order to ABIs [...] supine position. Images were obtained using a EDUSs vascular ultrasound machine. --- Arterial pressure indices: [...] EXTREMITY BILATERAL VENOUS DUPLEX Result Date: 10/21/2021 [facility] --- Lower Extremity Venous Duplex Report Patient DO GurpreetB: 1950 Study 10/21/2021 Name: Andrew Gonzalez (71yr) Date: Age: 71 Account: [id number] Gender: M Loc: 444 BP: Ordering Physician: May Cash [employer] Coop: Rody Cross RDMS, RVT Interpreting Physician: Carina Call --- Location: [facility] --- Indications: Bilateral lower leg edema. [...] supine position. Images were obtained using a EDUSs vascular ultrasound machine. --- Venous flow and [...] Radiology ACCESSION EXAM DATE/TIME PROCEDURE ORDERING PROVIDER [id number] 10/21/2021 08:16 EDT CR Chest 1 View Frontal [id number] MAY BOGGS CPT code 98882 Reason For Exam (CR Chest 1 View [...] Tomography ACCESSION EXAM DATE/TIME PROCEDURE ORDERING PROVIDER [id number] 10/22/2021 13:[address] Abdomen/Pelvis (No SRIVASTAVA, WNIG PO, No IV) CPT code 15047 Reason For Exam (CT Abdomen/Pelvis (No PO, [...] 12:48 PM Consults Speech Language Pathology Facility/Department: [facility] Dysphagia Treatment Note [...] reactivity and state change, indicative of a nucd-hd-mmetfnbf diffuse encephalopathy of nonspecific etiology. There are [...] to chew diet/cut up. NEVILLE Jones M.A.CCC/ELECTRIC WELDER HELPER Time session ended: 1156 Total session minutes: 23 Images from the original note were not included. Hospitalist Progress Note 10/27/2021 10:40 AM [phone]: Please page me @ [phone] for patient care issues. 0021-2018: Please page heel former for any issues@ night Subjective: Admit [...] due to misrecognition of the spoken word. [facility] Anticoagulation Management Service ([facility]) Inpatient Warfarin Consult HPI: Andrew Sifuentes is a 71 y.o. 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 Past Medical History: Diagnosis Date ED (erectile dysfunction) Hemorrhoids Hydrocephalus, adult (HCC) Kidney stone Neuropathy SHEET METAL SHOP SUPERVISOR (ventriculoperitoneal) shunt status Patient is newly referred to the [facility] clinic for warfarin management. Pt [...] SNF. 4. Will provide warfarin education including [facility] warfarin booklet, if appropriate. Thank you for this consult Brionna Le, PharmD candidate Josie Gupta [facility], PharmD [facility] Consult Service is available daily [phone]. Please search for covering pharmacist name via [employer]oocyte or Groups --> Pharmacy --> Anti-Coagulation Consult Pharmacist (on 3rd page). If no response via PerfectServe, please page [phone]. I cleaned under patient's finger nails with [...] status with Warfarin. Discussed with patient's staff mine warfare officer. Will continue to monitor. Total [...] if concern Hydrocephalus Chronic WOODARD's - Revised SHEET METAL SHOP SUPERVISOR shunt - daughter requested that pt [...] transferred to [facility]. Seizure history, unspecified - daughter requested [...] get report from nursing. Continue wound care. [facility] Anticoagulation Management Service ([facility]) Inpatient Warfarin Consult HPI: Andrew Sifuentes is a 71 y.o. 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 Past Medical History: Diagnosis Date ED (erectile dysfunction) Hemorrhoids Hydrocephalus, adult (HCC) Kidney stone Neuropathy SHEET METAL SHOP SUPERVISOR (ventriculoperitoneal) shunt status Patient is newly referred to the [facility] clinic for warfarin management. Pt [...] PharmD [facility] Consult Service is available daily [phone]. Please search for covering pharmacist name via [employer]ocyte or Groups --> Pharmacy --> Anti-Coagulation Consult Pharmacist (on 3rd page). If no response via [employer]oocyte, please page [phone]. Moon daughter stated that any of patient's family can call and obtain an update on patient's status. Speech Language Pathology Facility/Department: [facility] CLINICAL BEDSIDE SWALLOW [...] small bore straw. Additionally discussed with ELECTRIC WELDER HELPER, agreeable to assess tomorrow. Recent Chest [...] liquids between bites. Treatment Plan Requires ELECTRIC WELDER HELPER Intervention: Yes Duration of Treatment: 2 [...] Response: Verbalizes understanding;Needs reinforcement Therapy Time ELECTRIC WELDER HELPER Individual Minutes Time In: 826 Time Out: 53 Minutes: 26 NEVILLE Jones 10/26/2021 9:20 AM Comprehensive Nutrition Assessment Type and Reason for Visit: Initial (DT referral for wounds) Nutrition Recommendations/Plan: 1. Recommend to continue: Easy to Chew diet with Thin Liquids as currently ordered and safe for patient to participate in. Discussed with: RN, STATION CLEAN[employer] PORTER, and ELECTRIC WELDER HELPER. ELECTRIC WELDER HELPER to assess tomorrow, best diet and [...] & deltoids),Scapula (trapezius) Fluid Accumulation: Mild Extremities Increment Manager Strength: Not Performed Nutrition Assessment: 71 [...] small bore straw. Additionally discussed with ELECTRIC WELDER HELPER, agreeable to assess tomorrow. Nutrition Related [...] Anthropometric Measures: Height: 5' 7.01 (170.2 cm) Clinton Body Weight (IBW): 148 lbs (67 kg) [...] On: Kcal/kg Weight Used for Energy Requirements: Clinton (67.15 kg) Energy (kcal/day): 0119-4217 (27-32 kcal/kg IBW) --> increased need d/t wounds Weight Used for Protein Requirements: Clinton (67.15 kg) Protein (g/day): 67-101 (1.0-1.5 g protein/kg IBW) Method Used for Fluid Requirements: Other (Comment) Fluid (ml/day): 3276-7670 mL daily or per MD Nutrition Diagnosis: [...] Plan of Care discussed with: Patient, RN, STATION CLEANING PORTER Edwin Goals: Goals: other (specify) Specify Other [...] to determine Puja Almanza RD, LD Contact: *[phone] [address] [employer] Hematology/Oncology Attending Progress Note SUBJECTIVE: Patient seen [...] IRON, TIBC, FERRITIN No results found for: [id number] No results found for: FOLATE PT 15.6 INR 1.5 CA 19 - 9 is 17 Protein S 138% Protein C 186% ASSESSMENT AND PLAN GI input appreciated. Patient continues with subtherapeutic INR. GI input appreciated. Discussed with patient's staff mine warfare officer. Will continue monitor. Total visit time > 35 minutes. [facility] Anticoagulation Management Service ([facility]) Inpatient Warfarin Consult HPI: Andrew Sifuentes is a 71 y.o. 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 Past Medical History: Diagnosis Date ED (erectile dysfunction) Hemorrhoids Hydrocephalus, adult (HCC) Kidney stone Neuropathy SHEET METAL SHOP SUPERVISOR (ventriculoperitoneal) shunt status Patient is newly referred to the [facility] clinic for warfarin management. Pt [...] interactions and adjust dose accordingly. 3. [facility] will manage while inpatient and sign off at discharge. Patient resides in a SNF. 4. Will provide warfarin education including [facility] warfarin booklet, if appropriate. Thank you for this consult Brionna Le, PharmD candidate Josie Gupta RPh, PharmD [facility] Consult Service is available daily [phone]. Please search for covering pharmacist name via [employer] or Groups --> Pharmacy --> Anti-Coagulation Consult Pharmacist (on 3rd page). If no response via PerfectServe, please page [phone]. Progress Note 10/25/2021 9:36 AM Name: Andrew [...] if concern Hydrocephalus Chronic WOODARD's - Revised SHEET [employer]AL [employer] SUPERVISOR shunt DC planning - 10/25/21: INR [...] if concern Hydrocephalus Chronic WOODARD's - Revised SHEET MET[employer] SUPERVISOR shunt DC planning - Can be DC'd back to ECF once MRI done if no acute findings, MRI is done, defer to hem / onc on plan for that, awaiting chest PA with fluoro Patient seen and chart reviewed. Consult dictated. Will ask GI to assess concerning the etiology of liver lesions. Will continue to monitor. [facility] Anticoagulation Management Service ([facility]) Inpatient Warfarin Consult HPI: Andrew R Gurpreet is a 71 y.o. male admitted on 10/21/2021 for recurrent DVT. Past Medical History: Diagnosis Date ED (erectile dysfunction) Hemorrhoids Hydrocephalus, adult (HCC) Kidney stone Neuropathy SHEET METAL SHOP SUPERVISOR (ventriculoperitoneal) shunt status Patient is newly referred to the [facility] clinic for warfarin management. Pt [...] interactions and adjust dose accordingly. 3. [facility] will manage while inpatient and sign off at discharge. Patient resides in a SNF. 4. Will provide warfarin education including [facility] warfarin booklet, if appropriate. Thank you for this consult Brionna Le, PharmD candidate Josie Gupta RPh, PharmD [facility] Consult Service is available daily [phone]. Please search for covering pharmacist name via Jobalineve or Groups --> Pharmacy --> Anti-Coagulation Consult Pharmacist (on 3rd page). If no response via PerfectServe, please page [phone]. Follow up foot wounds Patient is more alert this morning. Waffle boots are on Ulcer left heel ulcer right foot Foot drop PE, chart reviewed. Patient relates that he does not walk at home. c ontinue wound care. Images from the original note were not included. Hospitalist Progress Note 10/23/2021 1:47 PM [phone]: Please page me ([phone]) or perfect serve me for patient care issues. [phone]: Please page IMS night Hospitalist for any [...] if concern Hydrocephalus Chronic WOODARD's - Revised SHEET MET[employer] SUPERVISOR shunt DC planning - Can be [...] Hemorrhoids Hydrocephalus, adult (HCC) Kidney stone Neuropathy SHEET METAL [employer] SUPERVISOR (ventriculoperitoneal) shunt status Medications: sodium chloride [...] of Hospitalist Medicine Inpatient Medical Services PAGER: [phone] Nutrition rescreen completed. Pt referred to RD for foot ulcers. Occupational Therapy Facility/Department: [facility] Occupational Therapy Initial Assessment Name: Andrew Sifuentes : 1950 Date of Service: 10/23/2021 OT eval and treat orders received. Chart reviewed. Per notes pt from [facility], is Boaz lift at baseline, non-ambulatory, and requires assist for all ADLs. Will d/c OT orders. Elizabeth Gutierrez OT Physical Therapy Facility/Department: [facility] Physical Therapy Initial Assessment Name: Andrew Sifuentes : 1950 Date of Service: 10/23/2021 PT eval and treat orders received. Chart reviewed. Per notes pt from [facility], is Boaz lift at baseline, non-ambulatory. Will d/c PT orders. Lloyd Silva PT [facility] Anticoagulation Management Service ([facility]) Inpatient Warfarin Consult HPI: Andrew Sifuentes is a 71 y.o. 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 Past Medical History: Diagnosis Date ED (erectile dysfunction) Hemorrhoids Hydrocephalus, adult (HCC) Kidney stone Neuropathy SHEET METAL SHOP SUPERVISOR (ventriculoperitoneal) shunt status Patient is newly referred to the [facility] clinic for warfarin management. Pt [...] PharmD [facility] Consult Service is available daily [phone]. Please search for covering pharmacist name via Cryoocyte or Groups --> Pharmacy --> Anti-Coagulation Consult Pharmacist (on 3rd page). If no response via Cryoocyte, please page [phone]. Department of Podiatry Attending Consult Note Reason for Consult: Wound care Requesting Physician: MD Oksana CHIEF COMPLAINT: Foot wounds HISTORY OF PRESENT ILLNESS: The patient is a 71 y.o. male with b/l foot wounds. Patient is awake , but not answering questions. Past Medical History: Diagnosis Date ED (erectile dysfunction) Hemorrhoids Hydrocephalus, adult (HCC) Kidney stone Neuropathy SHEET METAL SHOP SUPERVISOR (ventriculoperitoneal) shunt status Past Surgical History: [...] OT consulted. Will follow . Thank you. [facility] Respiratory Care Department Progress Note As [...] included. Hospitalist Progress Note 10/22/2021 6:33 AM [phone]: Please page me ([phone]) or perfect serve me for patient care issues. [phone]: Please page IMS night Hospitalist for any issues. Subjective: Admit Date: 10/21/2021 PCP: MONIKA STALEY MD Room#: 496/9109 Admitting Synopsis: 71 y/o male presents from [...] consider MRI if concern Hydrocephalus - Revised SHEET METAL SHOP SUPERVISOR shunt Interval History: No overnight issues. [...] no cyanosis or edema and unable to street photographer BLE, this is old Musculoskeletal: Muscle loss [...] Hemorrhoids Hydrocephalus, adult (HCC) Kidney stone Neuropathy SHEET METAL SHOP SUPERVISOR (ventriculoperitoneal) shunt status Medications: sodium chloride [...] of Hospitalist Medicine Inpatient Medical Services PAGER: [phone] Images from the original note were not included. Hospitalist Progress Note 10/21/2021 5:31 PM [phone]: Please page me ([phone]) or perfect serve me for patient care issues. [phone]: Please page IMS night Hospitalist for any issues. Subjective: Admit Date: 10/21/2021 PCP: MONIKA STALEY MD Room#: 488/1467 Admitting Synopsis: 71 y/o male presents from [...] Will need chronic OAC Hydrocephalus - Revised SHEET METAL SHOP SUPERVISOR shunt Interval History: No overnight issues. [...] Hemorrhoids Hydrocephalus, adult (HCC) Kidney stone Neuropathy SHEET METAL SHOP SUPERVISOR (ventriculoperitoneal) shunt status Medications: sodium chloride [...] of Hospitalist Medicine Inpatient Medical Services PAGER: [phone] Family member Triny, sister to patient, called back to the hospital stating that she was returning a call from a provider. Her phone number is [phone] to speak with whomever was attempting to reach out to her. documented in this encounter KALA Zavala Phone: 10-17-2021 Miscellaneous Notes Mr. Sifuentes missed his hospital stay follow-up appointment w. Dr. Lim today. Called to Reschedule. Could not get through. Subscriber you have dialed not in service - was the automated voice mail. Unable to leave . No other phone# available. Ramya Negro Ad Copy Writer [facility] documented in this encounter [facility] 08-19-2021 Note [facility] 08-19-2021 Note [facility] 08-18-2021 [facility] 08-18-2021 Note [facility] 08-17-2021 Note [facility] 08-17-2021 Note [facility] 08-16-2021 Note [facility] 08-16-2021 Note HNO ID: [id number] Author: Katt Kelsey DO Service: Hospital Medicine Author Type: Physician Type: Plan of Care Filed: 08/16/2021 12:26 PM Note Text: Spoke with RN that line is a PICC. Katt Kelsey DO 08/16/2021 12:26 PM [facility] 08-16-2021 Note [facility] 08-16-2021 Note [facility] 08-15-2021 Note [facility] 08-15-2021 Note [facility] 08-15-2021 Note [facility] 08-14-2021 Note [facility] 08[facility]14-2021 Note [facility] 08-13-2021 Note [facility] 08-13-2021 Note [facility] 08-13-2021 Note [facility] 08-13-2021 Note HNO ID: [id number] Author: Interface Note Service: ? Author Type: ? Type: Progress Notes Filed: 08/13/2021 3:10 AM Note Text: Epic Scheduled Downtime: 08/13/2021 1:08:47 AM to 08/13/2021 2:53:47 AM [facility] 08-12-2021 Note [facility] 08-12-2021 Note [facility] 08-12-2021 Note [facility] 08-11-2021 Note [facility] 08[facility]11-2021 Note [facility] 08-11-2021 Note [facility] 08[facility]11-2021 Note [facility] 08-11-2021 Note [facility] 08[facility]11-2021 Note [facility] 08-10-2021 Note [facility] 08[facility]10-2021 Note [facility] 08-10-2021 Note [facility] 08-10-2021 Note [facility] 08-09-2021 Note HNO ID: [id number] Author: Shannon Brooks RN Service: ? Author Type: Registered Nurse Type: Nursing Progress Note Filed: 08/09/2021 7:33 PM Note Text: Report called to unit [facility] 08-09-2021 Note [facility] 08-09-2021 [facility] 08-09-2021 Note [facility] 08-08-2021 Note [facility] 08[facility]08-2021 Note [facility] 08-08-2021 Note [facility] 08-07-2021 Note [facility] 08[facility]07-2021 Note [facility] 08-07-2021 Note [facility] 08[facility]07-2021 Note [facility] 08-07-2021 Note [facility] 08-06-2021 Note [facility] 08-06-2021 Note [facility] 08-06-2021 Note [facility] 08-05-2021 [facility] 08[facility]05-2021 [facility] 08[facility]05-2021 [facility] 08-04-2021 [facility] 08[facility]04-2021 [facility] 08[facility]04-2021 [facility] 08-03-2021 [facility] 08[facility]03-2021 Note [facility] 08-03-2021 Note [facility] 08-02-2021 Note [facility] 08-02-2021 Note [facility] 08-02-2021 Note [facility] 08-01-2021 Note [facility] 08[facility]01-2021 Note [facility] 08[facility]01-2021 Note [facility] 08-01-2021 Note [facility] 07-31-2021 Note [facility] 07-31-2021 Note [facility] 07-30-2021 Note [facility] 07[facility]30-2021 Note [facility] 07[facility]30-2021 Note [facility] 07-29-2021 Note [facility] 07-29-2021 Note [facility] 07-29-2021 [facility] 07-28-2021 Note [facility] 07[facility]28-2021 Note [facility] 07[facility]28-2021 Note [facility] 07-27-2021 Note [facility] 07[facility]27-2021 Note [facility] 07-27-2021 Note [facility] 07-26-2021 Note [facility] 07-26-2021 Note [facility] 07-26-2021 Note [facility] 07-26-2021 Note [facility] 07-26-2021 Note [facility] 07-25-2021 Note [facility] 07-25-2021 Note [facility] 07[facility]25-2021 Note [facility] 07[facility]25-2021 Note [facility] 07-24-2021 Note [facility] 07[facility]24-2021 Note [facility] 07-24-2021 Note [facility] 07-23-2021 Note [facility] 07-23-2021 Note [facility] 07-23-2021 Note [facility] 07[facility]23-2021 Note [facility] 07-23-2021 Note [facility] 07-22-2021 Note [facility] 07-22-2021 Note [facility] 07-22-2021 Note [facility] 07-21-2021 Note [facility] 07-21-2021 Note [facility] 07-21-2021 Note [facility] 07-21-2021 History of [...] history of fever, elevated WBC, RP hematoma SHEET [employer]AL [employer] SUPERVISOR shunt tip grew anaerobic gram positive cocci 06/08/2021 PLAN: SHEET [employer] SUPERVISOR shunt tip sent to [facility] main, awaiting cx Continue Meropenem per I.D Sputum cx growing yeast, add antifungal? Non-sustained ventricular tachycardia 06/14/2021 06/17/2021 Last Assessment & Plan: Assessment: Hypokalemia and hypophosphatemia noted TAMIKO only 22 EKG unchanged since the last 06/11/2021 PLAN: Replace potassium and phosphorus Rpt TAIMKO Continue to monitor Contact dermatitis 06/06/2021 06/14/2021 [...] - following CSF studies; 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 for PCAS infection at this time - ID following- Continue antibiotics: Meropenem -CSF leak from EVD site, appreciate NSGY recs> stat repeat CTH on 06/07 d/t concern for CSF leak, cephalematoma, CTH unremarkable -Tolerating TF - SBT WTE - PICC line placed documented as of this encounter (statuses as of 10/17/2021) [facility]03-17-2022 [facility]03-16-2022 [facility]-16-2022 [facility]03-16-2022 Note [facility]03-16-2022 [facility] 07-19-2021 [facility]03-15-2022 [facility]03-15-2022 [facility]03-14-2022 [facility]03-14-2022 [facility]03-13-2022 [facility]03-13-2022 [facility]03-12-2022 Note [facility]03-12-2022 [facility] 07-15-2021 [facility]03-11-2022 [facility]03-10-2022 [facility]03-10-2022 [facility]03-10-2022 [facility]03-09-2022 [facility]03-09-2022 [facility]03-09-2022 Note [facility]03-09-2022 [facility] 07-12-2021 [facility]03-08-2022 [facility]03-07-2022 [facility]03-07-2022 [facility]03-07-2022 [facility]03-07-2022 [facility]03-06-2022 [facility]03[facility]06-2022 Note [facility]03-05-2022 [facility] 07-09-2021 [facility]03-05-2022 [facility]03-05-2022 [facility]03-05-2022 NoteHNO ID: [id number] Author: Lizette Valderrama RN Service: Nursing Author Type: Registered Nurse Type: Nursing Progress Note Filed: 07/09/2021 1:41 AM Note Text: Report called to [facility]03-04-2022 NoteHNO ID: [id number] Author: Lizette Valderrama RN Service: Nursing Author Type: Registered Nurse Type: Nursing Progress Note Filed: 07/08/2021 8:57 PM Note Text: [address]49 back to PACU [address] [place], [place] [address]3-04-2022 NoteHNO ID: [id number] Author: Sukhi Chery APRN.CNP Service: ? Author Type: Nurse Practitioner Type: Progress Notes Filed: 07/09/2021 6:46 PM Note Text: Connected Care Unit Progress Note Patient Name: Andrew Sifuentes Patient Facility: [facility] Admit Date 06/28/2021 Level of Care: Skilled [...] Dept Phone 07/21/2021 11:00 AM NICOLE LIM [phone] HPI: (Per Dr. Beltran) Andrew Sifuentes is being seen today for assisted facility (SNF) admission AND management of weakness, tube feed, infected retroperitoneal infection and seizure. ? This is a 71 year old male who presents from [facility] with primary admitting diagnosis of Seizure, [...] CT brain concerning for hydrocephalus. 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 Ordered to transfer to [facility] ED for evaluation of neurological and [...] changes in co (more content not included)... [facility]03-04-2022 [facility]03-04-2022 [facility]03-02-2022 NoteHNO ID: [id number] Author: Sukhi Chery APRN.CNP Service: ? Author Type: Nurse Practitioner Type: Progress Notes Filed: 07/09/2021 6:20 PM Note Text: Connected Care Unit Progress Note Patient Name: Andrew Sifuentes Patient Facility: [facility] Admit Date 06/28/2021 Level of Care: Skilled [...] Dept Phone 07/21/2021 11:00 AM NICOLE LIM [phone] HPI: (Per Dr. Beltran) Andrew Sifuentes is being seen today for assisted facility (SNF) admission AND management of weakness, tube feed, infected retroperitoneal infection and seizure. ? This is a 71 year old male who presents from [facility] with primary admitting diagnosis of Seizure, [...] CT brain concerning for hydrocephalus. Tip of SHEET MET[employer] SUPERVISOR shunt was found to be in [...] Pharynx: Oropharynx is clear. (more content not included)...[facility]02-28-2022 NoteHNO ID: [id number] Author: Sukhi Chery APRN.CNP Service: ? Author Type: Nurse Practitioner Type: Progress Notes Filed: 07/09/2021 6:07 PM Note Text: Connected Care Unit Progress Note Patient Name: Andrew Sifuentes Patient Facility: [facility] Admit Date 06/28/2021 Level of Care: Skilled [...] but nursing notes it was drawn by shadowgraph scale operator as vancomycin was being infused; reordered trough - PICC Line Intact - No fevers or chills per patient or staff (R53.81) Debility - Certify therapies - Maintain high falls risk precautions - pt/staff verbalize understanding validated via teach back - Monitor safety awareness Appointments for Next 60 Days Date Time Provider Location Dept Phone 07/21/2021 11:00 AM NICOLE LIM [phone] HPI: (Per Dr. Beltran) Andrew Sifuentes is being seen today for assisted facility (SNF) admission AND management of weakness, tube feed, infected retroperitoneal infection and seizure. ? This is a 71 year old male who presents from [facility] with primary admitting diagnosis of Seizure, [...] CT brain concerning for hydrocephalus. 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 OBJECTIVE: Labs/diagnostics: 07/04/2021 Glucose=91 Er=890 K=3.8 Yc=073 CO2=24 BUN=14 Creatinine=0.5 HEF=817 Ca=9.0 Protein,Total=6.7 Albumin=3.6 WpeAuha=434 AST=15 ALT=21 Bilirubin,Totall=0.5 WBC=10.7 RBC=4.04 Hgb=10.9 Hct=35.3 Cwsbucar=969 VancomycinTr (more content not included)...[facility]02-24-2022 NoteHNO ID: [id number] Author: Sukhi Chery APRN.CNP Service: ? Author Type: Nurse Practitioner Type: Progress Notes Filed: 07/09/2021 5:43 PM Note Text: Connected Care Unit Progress Note Patient Name: Andrew Sifuentes Patient Facility: [facility] Admit Date 06/28/2021 Level of Care: Skilled [...] Dept Phone 07/21/2021 11:00 AM NICOLE LIM [phone] HPI: (Per Dr. Beltran) Andrew Sifuentes is being seen today for assisted facility (SNF) admission AND management of weakness, tube feed, infected retroperitoneal infection and seizure. ? This is a 71 year old male who presents from [facility] with primary admitting diagnosis of Seizure, [...] CT brain concerning for hydrocephalus. 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 OBJECTIVE: Labs/diagnostics: 07/01/2021 Glucose=83 Zn=016 K=4.1 Ea=543 CO2=27 BUN=22 Creatinine=0.6 NRN=394 Ca=8.7 WBC=10.8 RBC=3.40 Hgb=9.3 Hct=29.9 Ajxmrpea=864 Vital Signs: BP 128/80 Pulse 77 Temp 36.7 ?C (98 ?F) Resp 20 Ht 182.9 cm (6') Wt 113 kg (249 lb 3.2 oz) SpO2 96% BMI 33.80 kg/m? Physical Exam: Physical Exam Vitals reviewed. Constitutional: General: He is not in acute distress. (more content not included)...[facility]22[facility]02[facility]21[facility]2022 [facility]02-21-2022 Note [facility]02-20-2022 [facility] 06-26-2021 [facility]02-19-2022 [facility]02-19-2022 [facility]02-18-2022 [facility]02[facility]18-2022 [facility]02-18-2022 [facility]02-17-2022 [facility]02-17-2022 Note [facility]02-17-2022 [facility] 06-22-2021 NoteHNO ID: [id number] Author: Xiomy England RN Service: Nursing Author Type: Registered Nurse Type: Nursing Progress Note Filed: 06/22/2021 7:22 PM Note Text: RT contacted as pt has wheezing auscultated and same auditory. For prn Treatment.[facility]02-16-2022 [facility]02-16-2022 [facility]02-16-2022 [facility]02-16-2022 [facility]02-15-2022 [facility]02-15-2022 Note [facility]02-15-2022 [facility] 06-21-2021 [facility]02-14-2022 [facility]02-14-2022 [facility]02-14-2022 [facility]02-14-2022 [facility]02-14-2022 [facility]02-13-2022 [facility]02-13-2022 Note [facility]02-13-2022 [facility] 06-19-2021 [facility]02-13-2022 [facility]02-12-2022 [facility]02-12-2022 [facility]02[facility]12-2022 [facility]02-12-2022 [facility]02-12-2022 [facility]02-12-2022 Note [facility]02-12-2022 NoteHNO ID: [id number] Author: Interface Note Service: ? Author Type: ? Type: Progress Notes Filed: 06/18/2021 3:10 AM Note Text: Epic Scheduled Downtime: 06/18/2021 1:00:00 AM to 06/18/2021 2:27:00 [facility]02-11-2022 Note [facility]02-11-2022 [facility] 06-17-2021 [facility]02-11-2022 [facility]02-11-2022 [facility]02-10-2022 [facility]02-10-2022 [facility]02-10-2022 [facility]02-10-2022 [facility]02-10-2022 Note [facility]02-10-2022 [facility] 06-15-2021 [facility]02-09-2022 NoteHNO ID: [id number] Author: Lamonte Kline DO Service: Neurology ICU Author Type: Resident Type: Plan of Care Filed: 06/15/2021 6:21 PM Note Text: Patient's daughter Melissa updated on plan of care and critical condition, all questions answered.[facility]02[facility]02-09-2022 [facility]02-09-2022 [facility]02-09-2022 [facility]02-09-2022 Note [facility]02-09-2022 [facility] 06[facility]15-2021 [facility]02-08-2022 [facility]02-08-2022 [facility]02-08-2022 [facility]02-08-2022 [facility]02-07-2022 [facility]02-07-2022 [facility]02-07-2022 Note [facility]02-07-2022 [facility] 06[facility]12-2021 [facility]02-06-2022 [facility]02-06-2022 [facility]02-05-2022 [facility]02-05-2022 [facility]02-04-2022 [facility]02-04-2022 [facility]02[facility]04-2022 Note [facility]02-04-2022 [facility] 06-09-2021 [facility]02-03-2022 [facility]02-03-2022 [facility]02-03-2022 [facility]02-02-2022 [facility]02-02-2022 NoteHNO ID: [id number] Author: Luis Diaz RN Service: ? Author Type: Registered Nurse Type: Nursing Progress Note Filed: 06/08/2021 9:23 AM Note Text: Patient off the floor to OR at this time.[facility]02[facility]02-02-2022 [facility] 06-08-2021 NoteHNO ID: [id number] Author: Eloise Samuel RN Service: ? Author Type: Registered Nurse Type: Nursing Progress Note Filed: 06/08/2021 12:46 AM Note Text: Dr. Brito notified of changes throughout shift. No new orders at this timeRedington[facility]02[facility] 06-07-2021 NoteHNO ID: [id number] Author: Eloise Samuel RN Service: ? 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 No new orders at this time.[facility]02[facility]01[facility]20[facility]02-01-2022 [facility]02-01-2022 [facility]02[facility]01-2022 [facility]01-31-2022 [facility]01-31-2022 [facility]01-31-2022 Note [facility]01-31-2022 [facility] 06-05-2021 [facility]01-30-2022 [facility]01-30-2022 [facility]01-29-2022 [facility]01-29-2022 NoteHNO ID: [id number] Author: Jermaine Miller PA-C Service: Neurosurgery Author Type: Physician Cell Builder Type: Plan of Care Filed: 06/04/2021 1:59 PM Note Text: Discussed with Dr. Charles CT brain results. At this time, continue with EVD at 5 [facility]01-29-2022 [facility] 06-04-2021 [facility]01[facility]28-[facility]22 [facility]01-28-2022 NoteHNO ID: [id number] Author: Mauricio Frank DO Service: Neurology ICU Author Type: Physician Type: Plan of Care Filed: 06/03/2021 2:38 PM Note Text: I spoke with Melissa and updated her over the phone. Mauricio Frank, [facility]01-28-2022 [facility]01-28-2022 [facility]01-27-2022 [facility]01-27-2022 [facility]01-27-2022 Note [facility]01-26-2022 [facility] 06-01-2021 [facility]01-26-2022 [facility]01-26-2022 [facility]01-26-2022 [facility]01-25-2022 [facility]01-25-2022 [facility]01[facility]25-2022 [facility]01-25-2022 Note [facility]01-25-2022 [facility] Leg swelling- Primary Swelling of limb Acute deep vein thrombosis (DVT) of proximal vein of lower extremity, unspecified laterality (HCC) DVT, lower extremity, recurrent, unspecified laterality (HCC) Moderate malnutrition (HCC) Malnutrition of moderate degree History of seizures Personal history of other disorders of nervous system and sense organs documented in this encounter [facility] Work Phone: Evaluation noteNo assessment information available [facility] Work Phone: Evaluation note* Diagnosis Other fatigue- Primary documented in this encounter [facility] Work Phone: Evaluation note* Diagnosis Heel ulceration, left, with unspecified severity (HCC)- Primary documented in this encounter [facility] Work Phone: Evaluation note* Diagnosis Fall, initial encounter- Primary Anticoagulated Encounter for long-term (current) use of anticoagulants documented in this encounter [facility] Work Phone: Evaluation note* Diagnosis Left flank pain- Primary Abdominal pain, unspecified site Calculus of ureter Disease of prostate Unspecified disorder of prostate BPH with urinary obstruction Hypertrophy of prostate with urinary obstruction and other lower urinary tract symptoms (LUTS) documented in this encounter [facility]* Diagnosis Left flank pain Abdominal pain, unspecified site Calculus of ureter documented in this encounter [facility] Pirate3DEvaluation note* Diagnosis Left flank pain- Primary Abdominal pain, unspecified site BPH with urinary obstruction Hypertrophy of prostate with urinary obstruction and other lower urinary tract symptoms (LUTS) History of kidney stones documented in this encounter [facility] HealthInstructions* Name Dates Details Instructions not documented [facility] Work Phone: Instructions* Name Dates Details Instructions not documented [facility] [address] [place] Work Phone: Reason for referral (narrative)No reason for referral information [facility] Work Phone: Advance Directives No Advanced Directives Records FoundDocuments on File Type Date Recorded Patient Jacket Changer Expl anation Advance Directives and Living Will Power of First Assistant Manager Documents on File Type Date Recorded Patient Jacket Changer Expl anation Advance Directive(s) 06/02/2021 2:45 PM [...] Maker Relationship: 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 Adult 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) Documents on File Type Date Recorded Patient Jacket Changer Expl anation ACP-Advance Directive ACP-Power of First Assistant Manager Latest Code Status on File Code Status Date Activated Date Inactivated Comments Full Code 10/21/2021 4:09 AM Healthcare Agents on File Name Relationship Healthcare Agent Relationshi p Communication Melissa Gurpreet Child Primary Decision Maker deann Gurpreet Child Secondary Decision Maker Documents on File Type Date Recorded Patient Jacket Changer Expl anation ACP-Advance Directive ACP-Power of First Assistant Manager ACP-Do Not Resuscitate 11/01/2021 7:03 AM Latest Code Status on File Code Status Date Activated Date Inactivated Comments Full Code 10/21/2021 4:09 AM 10/29/2021 7:25 PM Healthcare Agents on File Name Relationship Healthcare Agent Relationshi p Communication Melissa Gurpreet Child Primary Decision Maker deann Gurpreet Child Secondary Decision Maker Documents on File Type Date Recorded Patient Jacket Changer Expl anation ACP-Do Not Resuscitate 11/03/2021 10:15 AM ACP-Do Not Resuscitate 11/01/2021 7:03 AM Healthcare Agents on File Name Relationship Healthcare Agent Relationshi p Communication Melissa Gurpreet Child Primary Decision Maker deann Gurpreet Child Secondary Decision Maker Documents on File Type Date Recorded Patient Jacket Changer Expl anation ACP-Do Not Resuscitate 11/03/2021 10:15 [...] Documents on File Type Date Recorded Patient Jacket Changer Expl anation DNR (Do Not Resuscitate) 10/31/2021 DNR (Do Not Resuscitate) 10/21/2021 Documents on File Type Date Recorded Patient Jacket Changer Expl anation DNR (Do Not Resuscitate) 10/31/2021 [...] 5:00am INTERMEDIATE LAB WORK January 26 4:00am Chief Complaint Admit Date LABWORK November 03, 2024 5:00 am INTERMEDIATE [...] 19, 2025 5:00am INTERMEDIATE LAB WORK January 22 5:00am INTERMEDIATE LAB WORK January 26 4:00am INTERMEDIATE LAB WORK January 29 7:30am INTERMEDIATE LAB WORK February 02 4:00am INTERMEDIATE LAB WORK February 05, 2025 5:00am INTERMEDIATE LAB WORK February 16, 2025 4:00am Reason for Referral Specialty Diagnoses / Procedures Referred By Contac t Referred To Contact Urology Diagnoses Other fatigue Lanette Munguia DO [address] [place] [address] [facility] [address] [place] [address] Referral ID Status Reason Start Date Expiration Date V isits Requested Visits Authorized [id number] Open Specialty Services Required 11/01/2021 11/01/2022 1 1 Scheduling Instructions [facility] - [place] [address] Specialty Diagnoses / Procedures Referred By Contac t Referred To Contact IP Unit Diagnoses Heel ulceration, left, with unspecified severity (HCC) Henry Hidalgo, PA [address] [place] [address] [address] [facility] [address] [place] [address] Referral ID Status Reason Start Date Expiration Date V isits Requested Visits Authorized [id number] Open Specialty Services Required 12/22/2021 12/22/2022 1 1 Scheduling Instructions [facility] Wound Care/Hyperbaric - [facility] [address] [place] [address] Comments Please use the parking lot located on [address] or [employer] services. There are handicap parking spots located in a small lot beside the wound care entrance off of [address]. Please be advised there is a small incline from those handicap spots to our main door. Bring photo ID and insurance card to photocopy. Wear loose fitting clothing (to easily access wound). Bring list of medications (or can be sent by office). Check in at Registration for your first visit. Please call us directly with any questions [phone]. We look forward to helping you heal. Specialty Diagnoses / Procedures Referred By Aki kumari Referred To Contact Radiology Diagnoses Left flank pain Calculus of ureter Procedures CT abdomen pelvis wo IV contrast Rebecca Buck MD [address] [place] [address] Referral ID Status Reason Start Date Expiration Date V isits Requested Visits Authorized [id number] Pending Review 08/13/2023 08/12/2024 1 1 Referral ID Status Reason Start Date Expiration Date Visits Re quested Visits Authorized [id number] Closed 08/17/2023 09/16/2023 1 1 Additional Source Comments Source Comments (unrecognize d section and content) In the event this informatio n is protected by the Federal Confidentiality of Alcohol and Drug Abuse Patient Records regulations: The Federal rules restrict any use of the information to criminally investigate or prosecute any alcohol or drug abuse patient.[facility] Center[facility] the event this information is protected by the Federal Confidentiality of Alcohol and Drug Abuse Patient Records regulations: The Federal rules restrict any use of the information to criminally investigate or prosecute any alcohol or drug abuse patient.[facility] (unrecognized sect ion and content) No Status Records FoundNo Status Records FoundNo Status Records FoundNo Status Records FoundNo Status Records FoundNo Status Records FoundNo Status Records FoundNo Status Records FoundNo Status Records FoundNo Status Records Found INFORMATION SOURCE (unrecogn ized section and content) DATE CREATED AUTHOR 05/20/2021 [facility] DATE CREATED AUTHOR AUTHOR'S ORGANIZ ATION 06/07/2021 [facility] DATE CREATED AUTHOR AUTHOR'S ORGANIZ ATION 08/02/2021 [facility] DATE CREATED AUTHOR AUTHOR'S ORGANIZ ATION 12/09/2021 [facility] DATE CREATED AUTHOR AUTHOR'S ORGANIZ ATION 12/29/2021 [facility] DATE CREATED AUTHOR AUTHOR'S ORGANIZ ATION 02/04/2022 [facility] DATE CREATED AUTHOR AUTHOR'S ORGANIZ ATION 03/03/2022 [facility] DATE CREATED AUTHOR AUTHOR'S ORGANIZ ATION 09/15/2023 [facility] DATE CREATED AUTHOR AUTHOR'S ORGANIZ ATION 03/18/2025 [facility] Reason for Visit (unrecogniz ed section and content) Reason Comments Missed Appointment Reason Comments Leg Swelling Blood clots Reason Comments Altered Mental Status Pt presents to ED via [facility] for complaint listed. Pt is from [facility]. Pt's LKW was 1000 hours today. Per EMS, pt had a - [place]. Pt denies CP, SOB, and N/V. Pt seems slow to respond, slightly confused at this time. Reason Comments Osteomyelitis Patient from [facility], facility did xrays on left lower leg and and have concerns for possible osteomyelitis A&Ox2 to self and place, stated year 2022 [facility] Reason Comments Fall Patient had unwitnes sed fall at [facility] landed on butt. Is on thinners, [...] Buck MD [address] [place] [address] Referral ID Status Reason Start Date Expiration Date Visits Re quested Visits Authorized [id number] Closed 08/17/2023 09/16/2023 1 1 Reason Comments [...] 31, 2024 End: July 31, 2024 Karon ONVAK MD Referring Provider Active Start: July 31, [...] August 28, 2024 End: August 28, 2024 Calros NOVAK Attending Provider Active Sta rt: August [...] Status Dates Carlos NOVAK Attending Provider Active Ice Seller Relationship Specialty Start Date End Date Mateus Burris [address] [place] [address] PCP - General Family Practice 11/12/19 Ice Seller Relationship Specialty [place] [address] [place] [address] PCP - General Family Medicine 09/09/20 Ice Seller Relationship Specialty [place] [address] [place] [address] PCP - General Family Medicine 09/09/20 Ice Seller Relationship Specialty [place] [address] [place] [address] PCP - General Family Medicine 09/09/20 Ice Seller Relationship Specialty Start Date End Date Carlos Cavazos MD [address] [facility] [address] [place] [address] PCP - General Internal Medicine 02/20/22 Team [...] Monika Staley MD Primary Care Provider Active Ice Seller Relationship Specialty Start Date End Date Carlos Cavazos [address] [place] [phone] PCP - General 12/21/21 Rebecca Buck MD [address] [place] [address] [address] [place] [address] Surgeon Urology 06/25/23 Team Status: Inactive Member [...] OLS Attending Provider, Referring Provi lupillo Active Ice Seller Relationship Specialty Start Date End Date Carlos Cavazos [address] [place] [phone] PCP - General 12/21/21 Rebecca Buck MD [address] [address] Surgeon Urology 06/25/23 Ice Seller Relationship Specialty Start Date End Date Carlos Cavazos [address] [place] [phone] PCP - General 12/21/21 Rebecca Buck MD [address] [address] Surgeon Urology 06/25/23 Ice Seller Relationship Specialty Start Date End Date Carlos Cavazos [address] [place] [phone] PCP - General 12/21/21 Rebecca Buck MD [address] [address] Surgeon Urology 06/25/23 Ice Seller Relationship Specialty Start Date End Date Carlos Cavazos [address] [place] [phone] PCP - General 12/21/21 Rebecca Buck MD [address] [address] Surgeon Urology 06/25/23 Ice Seller Relationship Specialty Start Date End Date Carlos Cavazos [address] [place] [phone] PCP - General 12/21/21 Rebecca Buck MD [address] [address] Surgeon Urology 06/25/23 Ice Seller Relationship Specialty Start Date End Date Carlos Cavazos [address] [place] [phone] PCP - General 12/21/21 Rebecca Buck MD [address] [address] Surgeon Urology 06/25/23 Team Status: Inactive Member Role Status Dates Dr. Monika Staley MD Primary Care Provider Active Start: March 13, 2024 End: March 13, 2024 [facility] Attending Provider Active Start: March 13, [...] 17, 2024 End: March 17, 2024 [facility] Attending Provider Active Start: March 17, 2024 End: March 17, 2024 Team Status: Inactive Member Role Status Dates Dr. Monika Staley MD Primary Care Provider Active Start: March 18, 2024 End: March 18, 2024 [facility] Attending Provider Active Start: March 18, [...] 20, 2024 End: March 20, 2024 [facility] Attending Provider Active Start: March 20, [...] 27, 2024 End: March 27, 2024 [facility] Attending Provider Active Start: March 27, [...] Provider Active Start: July 07, 2024 [facility] Attending Provider Active Start: July 07, [...] Attending Provider Active Start: July 24, 2024 aKron NOVAK MD Referring [...] BE BASED ON THE PRIMARY CLINICAL RECORDS. [facility] [employer] [facility]. provides no warranty or guarantee of the accuracy or completeness of information in this document.
[2025-04-28 08:24] LABS: Prothrombin Time (Protime)PT. 37.8 SECONDS (11.7-14.9)
== END ==
LOC: OLS.SANC 05:00
PROVIDERS: PCP General Practice
DX: Z79.01 Long term (current) use of anticoagulants (principal)
CPT/HCPCS: 36415; 85610

== ENCOUNTER → 2025-04-29 04:00 | Outpatient (REF) | payer MEDICARE, MEDICAID, SELFPAY ==
--- OUTSIDE RECORDS SUMMARY | 2025-04-29 04:17 | XMS RPT_ITS | CCD ---
Author Organization [facility] Care Team Providers Care Bull Bucker Name Role Phone Mateus Burris Primary Care [...] Unavailable Mateus Burris Primary Care Provider [phone] Monika Staley MD Primary Care Provider Monika Staley MD Primary Care Provider [phone] Carlos Cavazos Primary Care Unavailable Carlos Cavazos [...] Attending Unavailable Kenny, Carlos Primary Care Provider [phone] Quinn VALLADARES, Rebecca L Unavailable Quinn VALLADARES, Rebecca L Unavailable REBECCA BUCK Attending Unavailable REBECCA BUCK Referring Unavailable CARLOS CAVAZOS Primary Care Unavailable REBECCA BUCK Attending Unavailable KENNY, CARLOS Primary Care Unavailable REBECCA BUCK Attending Unavailable KENNY, CARLOS Primary Care Unavailable Luís VALLADARES, Dr. Monika Horner Primary Care Provider [facility] Attending Provider [phone] Carlos Nelson Attending Provider Jonh Pascual MD, [...] Unava ilCarlos Anglin Attending Provider Daniab ish Stalye MD, Dr. Monika Horner Primary Care Provider Andressa VALLADARES, Dr. Calderon Attending Provider Unava ilCarlos Anglin Attending Provider Jonh Cardoza MD, Dr. Monika Horner Primary Care Provider Andressa VALLADARES, Dr. Calderon Attending Provider Jany Staley MD, Dr. Monika Horner Primary Care Provider Carlos Nelson Attending Provider Jonh Cardoza MD, Dr. Monika Horner Primary [facility] Physician Karon Corrales MD Attending Physician Unav ailCarlos Anglin Attending Physician Camelia Corrales MD, Karon Referring Provider Unava evan Staley MD, Dr. Monika Horner Primary [facility] Physician Carlos Nelson Attending Physician Unavailvanessa Corrales [...] able Luís, Shiela Primary Care Unavailable Luís, Sheila Primary Care Unavailable Mukkamalla OLS, Carlaaveer Attending [...] Luís, Shiela Primary Care Unavailable Katsaros OLS, Carlso Attending Unavailable Luís, Shiela Primary Care Unavailable [...] OLS, Mahaveer Attending Unavail able [facility] [place] Attending Unavai lable Luís, Shiela Primary Care Unavailable Crisostomo OLS, Babbaljeet Attending Unavailable Luís, Shiela Primary Care Unavailable [facility] [place] Attending Unavai lable Luís, Shiela Primary Care [...] Luís, Shiela Primary Care Unavailable Mukkamalla OLS, Calraaveer Attending Unavail able Luís, Shiela Primary Care Unavailable Katsaros OLS, Peter Attending Unavailable Luís, Shiela Primary Care Unavailable Katsaros OLS, Peter Attending Unavailable Luís, Shiela Primary Care Unavailable Mukkamalla OLS, Carlaaveer Attending Unavail able Luís, Shiela Primary Care Unavailable Mukkamalla OLS, Mahaveer Attending Unavail able Luís, Shiela Primary Care Unavailable MukkKaron Hoover Attending Unavail able Luís, [facility] Primary Care Unavailable NubiaKaron Stacy Attending Unavail able Luís, Shiela Primary Care Unavailable NubiaKaron Stacy Attending Unavail able Luís, [facility] Primary Care Unavailable MaribelCarlos Flood Attending Unavailable [place], [facility] Unavailable Allergies Allergy Classification Reported Allergen(s) Allergy Type Date of Onset Reaction(s) Facility (13 sources) [facility]: (15 sources) Alcohol Propensity to adverse reactions to drug 3 Rash, Hives, Other: See Comments, Other [facility] Work Phone: (1 source) Latex Drug Allergy 0 Rash [facility] (8 sources) Cortisone Drug Allergy 2 [facility] (7 sources) Latex Allergy to substance 0 Rash [facility] Medications Current Medications Medication Drug Class(es) Dates Sig (Normalized) Sig (Original) Acetaminophen (10 sources) Start: 10-21-2021 acetaminophen (TYLENOL) tablet 650 mg Start: 09-14-2021 acetaminophen (TYLENOL) 325 MG tablet 650 mg every 6 hours as needed 0 09/14/2021 Active take 2 tablets by [facility] every eight hours acetaminophen (TYLENOL) 325 mg [...] Start: 11-01-2021 take 1 capsule by mo [facility] once daily tamsulosin (FLOMAX) [...] Comment on above: Take 1 tablet by [facility] daily. Antacid TABS (6 sources) [...] on above: Take 1 capsule by [facility] three times daily. Complete Multi-Vitamin CHEW (4 [...] Active docusate sodium 50 mg / sennosides, shelter 8.6 mg oral tablet (1 source) Start: [...] Units subcutaneously with meals and at bedtime. [place] Panax Ginseng 100 MG CAPS (8 sources) [place] Panax Ginseng 100 MG CAPS Quantity: 0 Refills: 0 Ordered: 06-Nov-2019 DO Active [place] Panax Ginseng 100 MG Oral Capsule (4 sources) [place] Panax Ginseng 100 MG Oral Capsule Refills: 0 Active [place] Panax Gin mayuri 100 MG Oral Capsule Refills: 0 DO Active [place] Panax Ginseng 100 MG Oral Capsule (2 sources) [place] Panax Gin mayuri 100 MG Oral Capsule [...] once daily. Pentoxifylline (1 source) Blood Viscosity [employer] PENTOXIFYLLINE ORAL Take by mouth. 0 Active Comment on above: Take by mouth. petrolatum 0.41 mg/mg topical ointment (1 source) Start : 08-20 white petrolatum (AQUAPHOR) 41 % topical ointment Apply to affected area once daily. 0 08/20/2021 Active Comment on above: Apply to affected ar ea once daily. 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, [address] PT Coag (PPP) [Time] 25.1 s High 11.7-14.9 [facility] Comment on above: Order Comment: 411-2 Performed By: #### L 300.3900 ####[facility] [address] [place], [address] Prothrombin Time w/INRon INR Coag (PPP) [Relative time] 2.3 {INR} Normal [facility] Comment on above: Order Comment: 411-2 Performed By: #### L 300.3900 ####[facility] [address] [place], [address] PT Coag (PPP) [Time] 25.5 s High 11.7-14.9 [facility] Comment on above: Order Comment: 411-2 Performed By: #### L 300.3900 ####[facility] [address] [place], [address] Prothrombin Time w/INRon INR Coag (PPP) [Relative time] 2.0 {INR} Normal [facility] Comment on above: Order Comment: 411.2 Performed By: #### L 300.3900 ####[facility] [address] [place], [address] PT Coag (PPP) [Time] 22.8 s High 11.7-14.9 [facility] Comment on above: Order Comment: 411.2 Performed By: #### L 300.3900 ####[facility] [address] [place], [address] Prothrombin Time w/INRon INR Coag (PPP) [Relative time] 1.7 {INR} Normal [facility] Comment on above: Order Comment: 411-2 Performed By: #### L 300.3900 ####[facility] [address] [place], [address] PT Coag (PPP) [Time] 20.5 s High 11.7-14.9 [facility] Comment on above: Order Comment: 411-2 Performed By: #### L 300.3900 ####[facility] [address] [place], [address] Prothrombin Time w/INRon INR Coag (PPP) [Relative time] 1.5 {INR} Normal [facility] Comment on above: Order Comment: 411.2 Performed By: #### L 300.3900 ####[facility] [address] [place], [address] PT Coag (PPP) [Time] 18.4 s High 11.7-14.9 [facility] Comment on above: Order Comment: 411.2 Performed By: #### L 300.3900 ####[facility] [address] [place], [address] Prothrombin Time w/INRon INR Coag (PPP) [Relative time] 1.8 {INR} Normal [facility] Comment on above: Order Comment: 411.2 Performed By: #### L 300.3900 ####[facility] [address] [place], [address] PT Coag (PPP) [Time] 21.2 s High 11.7-14.9 [facility] Comment on above: Order Comment: 411.2 Performed By: #### L 300.3900 ####[facility] [address] [place], [place], [phone] International normalized rat io (INR) calculationOrdered By: Carlos Cavazos on 03-02-2025 INR Coag (Bld) [Relative time] 2.2 {INR} [facility] Prothrombin Time w/INRon INR Coag (PPP) [Relative time] 2.2 {INR} Normal [facility] Comment on above: Order Comment: 411-2 Performed By: #### L 300.3900 ####[facility] [address] [place], [place], [phone] Prothrombin timeOrdered By: Carlos Cavazos on 03-02-2025 PT Coag (PPP) [Time] 25.3 s High 11.7-14.9 [facility] Comment on above: Order Comment: 411-2 Performed By: #### L 300.3900 ####[facility] [address] [place], [place], [phone] International normalized rat io (INR) calculationOrdered By: Karon Corrales on 02-26-2025 INR Coag (Bld) [Relative time] 2.2 {INR} [facility] Prothrombin Time w/INRon INR Coag (PPP) [Relative time] 2.2 {INR} Normal [facility] Comment on above: Order Comment: 411.2 Performed By: #### L 300.3900 ####[facility] [address] [place], [address] PT Coag (PPP) [Time] 24.5 s High 11.7-14.9 [facility] Comment on above: Order Comment: 411.2 Performed By: #### L 300.3900 ####[facility] [address] [place], [place], [phone] Prothrombin timeOrdered By: Karon Corrales on 02-26-2025 PT Coag (PPP) [Time] 24.5 s High 11.7-14.9 [facility] International normalized rat io (INR) calculationOrdered By: Karon Corrales on 02-23-2025 INR Coag (Bld) [Relative time] 2.0 {INR} [facility] Prothrombin Time w/INRon INR Coag (PPP) [Relative time] 2.0 {INR} Normal [facility] Comment on above: Order Comment: 411.2 Performed By: #### L 300.3900 ####[facility] [address] [place], [place], [phone] PT Coag (PPP) [Time] 23.5 s High 11.7-14.9 [facility] Comment on above: Order Comment: 411.2 Performed By: #### L 300.3900 ####[facility] [address] [place], [place], [address] Prothrombin timeOrdered By: Karon Corrales on 02-23-2025 PT Coag (PPP) [Time] 23.5 s High 11.7-14.9 [facility] International normalized rat io (INR) calculationOrdered By: Karon Corrales on 02-19-2025 INR Coag (Bld) [Relative time] 1.9 {INR} [facility] Prothrombin Time w/INRon INR Coag (PPP) [Relative time] 1.9 {INR} Normal [facility] Comment on above: Order Comment: 411.2 Performed By: #### L 300.3900 ####[facility] [address] [place], [address]) PT Coag (PPP) [Time] 21.8 s High 11.7-14.9 [facility] Comment on above: Order Comment: 411.2 Performed By: #### L 300.3900 ####[facility] [address] [place], [place], [address] Prothrombin timeOrdered By: Karon Corrales on 02-19-2025 PT Coag (PPP) [Time] 21.8 s High 11.7-14.9 [facility] International normalized rat io (INR) calculationOrdered By: Karon Corrales on 02-16-2025 INR Coag (Bld) [Relative time] 1.5 {INR} [facility] Prothrombin Time w/INRon INR Coag (PPP) [Relative time] 1.5 {INR} Normal [facility] Comment on above: Order Comment: 411.2 Performed By: #### L 300.3900 ####[facility] [address] [place], [place], [address] PT Coag (PPP) [Time] 18.6 s High 11.7-14.9 [facility] Comment on above: Order Comment: 411.2 Performed By: #### L 300.3900 ####[facility] [address] [place], [place], [address] Prothrombin timeOrdered By: Karon Corrales on 02-16-2025 PT Coag (PPP) [Time] 18.6 s High 11.7-14.9 [facility] International normalized rat io (INR) calculationOrdered By: Karon Corrales on 02-12-2025 INR Coag (Bld) [Relative time] 2.5 {INR} [facility] Prothrombin Time w/INRon INR Coag (PPP) [Relative time] 2.5 {INR} Normal [facility] Comment on above: Order Comment: 411.2 Performed By: #### L 300.3900 ####[facility] [address], [address] PT Coag (PPP) [Time] 27.5 s High 11.7-14.9 [facility] Comment on above: Order Comment: 411.2 Performed By: #### L 300.3900 ####[facility] [address] [place], [address] Prothrombin timeOrdered By: Karon Corrales on 02-12-2025 PT Coag (PPP) [Time] 27.5 s High 11.7-14.9 [facility] International normalized rat io (INR) calculationOrdered By: Carlos Cavazos on 02-09-2025 INR Coag (Bld) [Relative time] 2.5 {INR} [facility] Prothrombin Time w/INRon INR Coag (PPP) [Relative time] 2.5 {INR} Normal [facility] Comment on above: Order Comment: 411-2 Performed By: #### L 300.3900 ####[facility] [address] [place], [address] INR Normal [facility] Comment on above: Order Comment: 411.2 Result Comment: MISS ING TUBE Performed By: #### L 300.3900 ####[facility] [address] [place], [address] PROTIME Normal 11.7-14.9 [facility] Comment on above: Order Comment: 411.2 Result Comment: MISS ING TUBE Performed By: #### L 300.3900 ####[facility] [address] [place], [address] Prothrombin timeOrdered By: Carlos Cavazos on 02-09-2025 PT Coag (PPP) [Time] 27.2 s High 11.7-14.9 [facility] Comment on above: Order Comment: 411-2 Performed By: #### L 300.3900 ####[facility] [address] [place], [address] International normalized rat io (INR) calculationOrdered By: Karon Corrales on 02-05-2025 INR Coag (Bld) [Relative time] 2.5 {INR} [facility] Prothrombin Time w/INRon INR Coag (PPP) [Relative time] 2.5 {INR} Normal [facility] Comment on above: Order Comment: 411.2 Performed By: #### L 300.3900 ####[facility] [address] [place], [address] PT Coag (PPP) [Time] 27.6 s High 11.7-14.9 [facility] Comment on above: Order Comment: 411.2 Performed By: #### L 300.3900 ####[facility] [address] [place], [place], [phone] Prothrombin timeOrdered By: Karon Corrales on 02-05-2025 PT Coag (PPP) [Time] 27.6 s High 11.7-14.9 [facility] International normalized rat io (INR) calculationOrdered By: Karon Corrales on 02-02-2025 INR Coag (Bld) [Relative time] 2.4 {INR} [facility] Prothrombin Time w/INRon INR Coag (PPP) [Relative time] 2.4 {INR} Normal [facility] Comment on above: Order Comment: 411.2 Performed By: #### L 300.3900 ####[facility] [address] [place], [address] PT Coag (PPP) [Time] 26.8 s High 11.7-14.9 [facility] Comment on above: Order Comment: 411.2 Performed By: #### L 300.3900 ####[facility] [address] [place], [place], [phone] Prothrombin timeOrdered By: Karon Corarles on 02-02-2025 PT Coag (PPP) [Time] 26.8 s High 11.7-14.9 [facility] International normalized rat io (INR) calculationOrdered By: Karon Corrales on 01-29-2025 INR Coag (Bld) [Relative time] 2.7 {INR} [facility] Prothrombin Time w/INRon INR Coag (PPP) [Relative time] 2.7 {INR} Normal [facility] Comment on above: Performed By: #### L 300.3900 ####[facility] [address] [place], [place], [phone]) PT Coag (PPP) [Time] 29.1 s High 11.7-14.9 [facility] Comment on above: Performed By: #### L 300.3900 ####[facility] [address] [place], [place], [phone]) Prothrombin timeOrdered By: Karon Corrales on 01-29-2025 PT Coag (PPP) [Time] 29.1 s High 11.7-14.9 [facility] International normalized rat io (INR) calculationOrdered By: Karon Corrales on 01-26-2025 INR Coag (Bld) [Relative time] 2.0 {INR} [facility] Prothrombin Time w/INRon INR Coag (PPP) [Relative time] 2.0 {INR} Normal [facility] Comment on above: Order Comment: 411.2 Performed By: #### L 300.3900 ####[facility] [address] [place], [place], [phone]) PT Coag (PPP) [Time] 23.1 s High 11.7-14.9 [facility] Comment on above: Order Comment: 411.2 Performed By: #### L 300.3900 ####[facility] [address] [place], [place], [phone]) Prothrombin timeOrdered By: Karon Corrales on 01-26-2025 PT Coag (PPP) [Time] 23.1 s High 11.7-14.9 [facility] International normalized rat io (INR) calculationOrdered By: Karon Corrales on 01-22-2025 INR Coag (Bld) [Relative time] 2.4 {INR} [facility] Prothrombin Time w/INRon INR Coag (PPP) [Relative time] 2.4 {INR} Normal [facility] Comment on above: Order Comment: 411.2 Performed By: #### L 300.3900 ####[facility] [address] [place], [address] PT Coag (PPP) [Time] 26.6 s High 11.7-14.9 [facility] Comment on above: Order Comment: 411.2 Performed By: #### L 300.3900 ####[facility] [address] [place], [address] Prothrombin timeOrdered By: Karon Corrales on 01-22-2025 PT Coag (PPP) [Time] 26.6 s High 11.7-14.9 [facility] International normalized rat io (INR) calculationOrdered By: Carlos Cavazos on 01-19-2025 INR Coag (Bld) [Relative time] 2.7 {INR} [facility] Prothrombin Time w/INRon INR Coag (PPP) [Relative time] 2.7 {INR} Normal [facility] Comment on above: Order Comment: 411-2 Performed By: #### L 300.3900 ####[facility] [address] [place], [address] PT Coag (PPP) [Time] 29.7 s High 11.7-14.9 [facility] Comment on above: Order Comment: 411-2 Performed By: #### L 300.3900 ####[facility] [address] [place], [address] Prothrombin timeOrdered By: Carlos Cavazos on 01-19-2025 PT Coag (PPP) [Time] 29.7 s High 11.7-14.9 [facility] International normalized rat io (INR) calculationOrdered By: Karon Corrales on 01-15-2025 INR Coag (Bld) [Relative time] 2.4 {INR} [facility] Prothrombin Time w/INRon INR Coag (PPP) [Relative time] 2.4 {INR} Normal [facility] Comment on above: Order Comment: 411.1 Performed By: #### L 300.3900 ####[facility] [address] [place], [place], [address] PT Coag (PPP) [Time] 26.6 s High 11.7-14.9 [facility] Comment on above: Order Comment: 411.1 Performed By: #### L 300.3900 ####[facility] [address] [place], [place], [address] Prothrombin timeOrdered By: Karon Corrales on 01-15-2025 PT Coag (PPP) [Time] 26.6 s High 11.7-14.9 [facility] KEPPRA (LEVETIRACETAM)on KEPPRA 30.1 ug/mL Normal 10.0-40.0 [facility] Comment on above: Order Comment: 411.1 Result Comment: Perf ormed at: [facility] [address] [id number] Director: Alpesh Vázquez MD, Phone: [phone] Performed By: #### L 2060.0000, K294.4898 ####[facility] [address] [place], [place], [address] International normalized rat io (INR) calculationOrdered By: Karon Corrales on 01-12-2025 INR Coag (Bld) [Relative time] 2.3 {INR} [facility] LevetiracetamOrdered By: Carla Corrales on 01-12-2025 levETIRAcetam [Mass/Vol] 30.1 ug/mL 10.0-40.0 [facility] Comment on above: Performed at: - [facility] [address] [id number] Director: Alpesh Vázquez MD, Phone: [phone] Prothrombin Time w/INRon INR Coag (PPP) [Relative time] 2.3 {INR} Normal [facility] Comment on above: Order Comment: 411.1 Performed By: #### L 3310.0000, L300.3900 ####[facility] [address], [address] PT Coag (PPP) [Time] 26.1 s High 11.7-14.9 [facility] Comment on above: Order Comment: 411.1 Performed By: #### L 3310.0000, L300.3900 ####[facility] [address] [place], [address] Prothrombin timeOrdered By: Karon Corrales on 01-12-2025 PT Coag (PPP) [Time] 26.1 s High 11.7-14.9 [facility] KEPPRA (LEVETIRACETAM)on KEPPRA 27.6 ug/mL Normal 10.0-40.0 [facility] Comment on above: Order Comment: 411.1 Result Comment: Perf ormed at: - [facility] [address] [id number] Director: Alpesh Vázquez MD, Phone: [phone] Performed By: #### L 3310.0000, L300.3900 ####[facility] [address] [place], [address] International normalized rat io (INR) calculationOrdered By: Karon Corrales on 01-08-2025 INR Coag (Bld) [Relative time] 2.2 {INR} [facility] Prothrombin Time w/INRon INR Coag (PPP) [Relative time] 2.2 {INR} Normal [facility] Comment on above: Order Comment: 411.1 Performed By: #### L 300.3900 ####[facility] [address] [place], [address] PT Coag (PPP) [Time] 24.5 s High 11.7-14.9 [facility] Comment on above: Order Comment: 411.1 Performed By: #### L 300.3900 ####[facility] [address] [place], [address] Prothrombin timeOrdered By: Karon Corrales on 01-08-2025 PT Coag (PPP) [Time] 24.5 s High 11.7-14.9 [facility] International normalized rat io (INR) calculationOrdered By: Karon Corrales on 01-06-2025 INR Coag (Bld) [Relative time] 3.2 {INR} [facility] LevetiracetamOrdered By: Carla Corrales on 01-06-2025 levETIRAcetam [Mass/Vol] 27.6 ug/mL 10.0-40.0 [facility] Comment on above: Performed at: [address] [id number] Director: Alpesh Vázquez MD, Phone: [phone] Prothrombin Time w/INRon INR Coag (PPP) [Relative time] 3.2 {INR} Normal [facility] Comment on above: Order Comment: 411.1 Performed By: #### L 3310.0000, L300.3900 ####[facility] [address] [place], [address] PT Coag (PPP) [Time] 33.1 s High 11.7-14.9 [facility] Comment on above: Order Comment: 411.1 Performed By: #### L 3310.0000, L300.3900 ####[facility] [address] [place], [place], [address] Prothrombin timeOrdered By: Karon Corrales on 01-06-2025 PT Coag (PPP) [Time] 33.1 s High 11.7-14.9 [facility] International normalized rat io (INR) calculationOrdered By: Karon Corrales on 01-01-2025 INR Coag (Bld) [Relative time] 2.7 {INR} [facility] Prothrombin Time w/INRon INR Coag (PPP) [Relative time] 2.7 {INR} Normal [facility] Comment on above: Order Comment: 411.1 Performed By: #### L [id number] ####[facility] [address] [place], [place], [id number] Prothrombin timeOrdered By: Karon Corrales on 01-01-2025 PT Coag (PPP) [Time] 29.1 s High 11.7-14.9 [facility] Comment on above: Order Comment: 411.1 Performed By: #### L [id number] ####[facility] [address] [place], [place], [id number] KEPPRA (LEVETIRACETAM)on KEPPRA 31.8 ug/mL Normal 10.0-40.0 [facility] Comment on above: Order Comment: 411-1 Result Comment: Perf ormed at: - [facility] [place], [place] [id number] Director: Alpesh Vázquez MD, Phone: [phone] Performed By: #### L 3310.0000, L395.3486 ####[facility] [address] [place], [place], [id number] International normalized rat io (INR) calculationOrdered By: Carlos Cavazos on 12-29-2024 INR Coag (Bld) [Relative time] 3.3 {INR} [facility] KEPPRA (LEVETIRACETAM)on KEPPRA 33.3 ug/mL Normal 10.0-40.0 [facility] Comment on above: Order Comment: 411.1 Result Comment: Perf ormed at: [facility] [address] [id number] Director: Alpesh Vázquez MD, Phone: [phone] Performed By: #### L 3310.0000 ####[facility] [address] [facility] [address] LevetiracetamOrdered By: Ted Cavazos on 12-29-2024 levETIRAcetam [Mass/Vol] 31.8 ug/mL 10.0-40.0 [facility] Comment on above: Performed at: [facility] [address] [id number] Director: Alpesh Vázquez MD, Phone: [phone] Prothrombin Time w/INRon INR Coag (PPP) [Relative time] 3.3 {INR} Normal [facility] Comment on above: Order Comment: 411-1 Performed By: #### L 3310.0000, L300.3900 ####[facility] [address] [place], [address] Prothrombin timeOrdered By: Carlos Cavazos on 12-29-2024 PT Coag (PPP) [Time] 34.0 s High 11.7-14.9 [facility] Comment on above: Order Comment: 411-1 Performed By: #### L 3310.0000, L300.3900 ####[facility] [address] [place], [place], [address] LevetiracetamOrdered By: Carla Corrales on 12-26-2024 levETIRAcetam [Mass/Vol] 33.3 ug/mL 10.0-40.0 [facility] Comment on above: Performed at: [facility] [address], [place] [id number] Director: Alpesh Vázquez MD, Phone: [phone] International normalized rat io (INR) calculationOrdered By: Karon Corrales on 12-25-2024 INR Coag (Bld) [Relative time] 2.8 {INR} [facility] Prothrombin Time w/INRon INR Coag (PPP) [Relative time] 2.8 {INR} Normal [facility] Comment on above: Order Comment: 411.1 Performed By: #### L 300.3900 ####[facility] [address] [place], [address] Prothrombin timeOrdered By: Karon Corrales on 12-25-2024 PT Coag (PPP) [Time] 30.0 s High 11.7-14.9 [facility] Comment on above: Order Comment: 411.1 Performed By: #### L 300.3900 ####[facility] [address] [place], [address] Anion gap in Serum or Plasma Ordered By: Carlos Cavazos on 12-24-2024 Anion gap [Moles/Vol] 13 mmol/L 09-18 [facility] BUN/creatinine ratioOrdered By: Carlos Cavazos on 12-24-2024 Urea nitrogen/Creatinine [Mass ratio] 19.2 mg/mg 02-23 [facility] Basic Metabolic Profile (BMP )on 12-24-2024 BUN/CRE 19.2 RATIO Normal 02-23 [facility] Comment on above: Order Comment: 411-1 Performed By: #### L 500.2500, L100.0500 ####[facility] [address] [place], [address] Calcium [Mass/Vol] 8.8 mg/dL Normal 7.6-11.0 [facility] Comment on above: Order Comment: 411-1 Performed By: #### L 500.2500, L100.0500 ####[facility] [address] [place], [address] Chloride [Moles/Vol] 103 mmol/L Normal 98-108 [facility] Comment on above: Order Comment: 411-1 Performed By: #### L 500.2500, L100.0500 ####[facility] [address] [place], [address] CO2 [Moles/Vol] 23.7 mmol/L Normal 21.0-32.0 [facility] Comment on above: Order Comment: 411-1 Performed By: #### L 500.2500, L100.0500 ####[facility] [address] [place], [address] Creatinine [Mass/Vol] 0.82 mg/dL Normal 0.70-1.20 [facility] Comment on above: Order Comment: 411-1 Performed By: #### L 500.2500, L100.0500 ####[facility] [address] [place], [address] GAP 13 Normal 5-15 [facility] Comment on above: Order Comment: 411-1 Performed By: #### L 500.2500, L100.0500 ####[facility] [address] [place], [address] GFR/1.73 sq M.predicted among non-blacks MDRD (S/P/Bld) [Vol rate/Area] 93 mL/min/{1.73_m2} Normal >60 [facility] Comment on above: Order Comment: 411-1 Result Comment: mL/m in/1.73m2 CKD-EPI Creatinine Equation (2020) Performed By: #### L 500.2500, L100.0500 ####[facility] [address] [place], [address] Glucose [Mass/Vol] 88 mg/dL Normal 70-99 [facility] Comment on above: Order Comment: 411-1 Performed By: #### L 500.2500, L100.0500 ####[facility] [address] [place], [address] Potassium [Moles/Vol] 4.2 mmol/L Normal 3.3-5.1 [facility] Comment on above: Order Comment: 411-1 Performed By: #### L 500.2500, L100.0500 ####[facility] [address] [place], [address] Sodium [Moles/Vol] 139 mmol/L Normal 133-145 [facility] Comment on above: Order Comment: 411-1 Performed By: #### L 500.2500, L100.0500 ####[facility] [address] [place], [address] Urea nitrogen [Mass/Vol] 16 mg/dL Normal 4-19 [facility] Comment on above: Order Comment: 411-1 Performed By: #### L 500.2500, L100.0500 ####[facility] [address] [place], [address] CBC-Complete Blood Cnt No Di ffon 12-24-2024 Erythrocyte distribution width (RBC) [Ratio] 15.4 % High 11.6-14.6 [facility] Comment on above: Order Comment: 411-1 Performed By: #### L 500.2500, L100.0500 ####[facility] [address] [place], [address] Hematocrit (Bld) [Volume fraction] 39.8 % Low 40-54 [facility] Comment on above: Order Comment: 411-1 Performed By: #### L 500.2500, L100.0500 ####[facility] [address] [place], [address] Hemoglobin (Bld) [Mass/Vol] 12.4 g/dL Low 13.0-16.5 [facility] Comment on above: Order Comment: 411-1 Performed By: #### L 500.2500, L100.0500 ####[facility] [address] [place], [address] MCH (RBC) [Entitic mass] 26.6 pg Low 27.0-32.0 [facility] Comment on above: Order Comment: 411-1 Performed By: #### L 500.2500, L100.0500 ####[facility] [address] [place], [address] MCHC (RBC) [Mass/Vol] 31.2 g/dL Low 32-36 [facility] Comment on above: Order Comment: 411-1 Performed By: #### L 500.2500, L100.0500 ####[facility] [address] [place], [address] MCV (RBC) [Entitic vol] 85.4 fL Normal 80-94 [facility] Comment on above: Order Comment: 411-1 Performed By: #### L 500.2500, L100.0500 ####[facility] [address] [place], [address] Platelet mean volume (Bld) [Entitic vol] 10.4 fL Normal 6.2-12.0 [facility] Comment on above: Order Comment: 411-1 Performed By: #### L 500.2500, L100.0500 ####[facility] [address] [place], [address] Platelets (Bld) [#/Vol] 290 10*3/uL Normal 150-450 [facility] Comment on above: Order Comment: 411-1 Performed By: #### L 500.2500, L100.0500 ####[facility] [address] [place], [address] RBC (Bld) [#/Vol] 4.66 10*6/uL Normal 4.6-6.2 [facility] Comment on above: Order Comment: 411-1 Performed By: #### L 500.2500, L100.0500 ####[facility] [address] [place], [address] RDW SD 48.1 fl High 35.1-43.9 [facility] Comment on above: Order Comment: 411-1 Performed By: #### L 500.2500, L100.0500 ####[facility] [address] [place], [address] WBC (Bld) [#/Vol] 16.6 10*3/uL High 4.4-11.0 [facility] Comment on above: Order Comment: 411-1 Performed By: #### L 500.2500, L100.0500 ####[facility] [address] [place], [address] Carbon dioxide, total [Moles /volume] in Central venous bloodOrdered By: Carlos Cavazos on 12-24-2024 CO2 [Moles/Vol] 23.7 mmol/L 21.0-32.0 [facility] Chloride assayOrdered By: Sharif Crouch on 12-24-2024 Chloride [Moles/Vol] 103 mmol/L 98-108 [facility] Erythrocyte distribution wid th ratioOrdered By: Carlos Cavazos on 12-24-2024 Erythrocyte distribution width (RBC) [Ratio] 15.4 % High 11.6-14.6 [facility] Erythrocyte distribution wid th standard deviationOrdered By: Carlos Cavazos on 12-24-2024 Erythrocyte distribution width (RBC) [Ratio] 48.1 fl High 35.1-43.9 [facility] Glomerular filtration rate ( GFR) estimation/1.73 sq m using serum, plasma, or whole bOrdered By: Carlos Cavazos on 12-24-2024 GFR/1.73 sq M.predicted among non-blacks MDRD (S/P/Bld) [Vol rate/Area] 93 mL/min/{1.73_m2} >60 [facility] Comment on above: mL/min/1.73m2 CKD-EP I Creatinine Equation (2020) Hematocrit Auto (Bld) [Volum e fraction]Ordered By: Carlos Cavazos on 12-24-2024 Hematocrit (Bld) [Volume fraction] 39.8 % Low 40-54 [facility] Hemoglobin measurementOrdere d By: Carlos Cavazos on 12-24-2024 Hemoglobin (Bld) [Mass/Vol] 12.4 g/dL Low 13.0-16.5 [facility] MCV (mean corpuscular volume ) determinationOrdered By: Carlos Cavazos on 12-24-2024 MCV (RBC) [Entitic vol] 85.4 fL 80-94 [facility] Mean corpuscular hemoglobin (MCH) determinationOrdered By: Carlos Cavazos on 12-24-2024 MCH (RBC) [Entitic mass] 26.6 pg Low 27.0-32.0 [facility] Mean corpuscular hemoglobin concentration (MCHC) determinationOrdered By: Carlos Cavazos on 12-24-2024 MCHC (RBC) [Mass/Vol] 31.2 g/dL Low 32-36 [facility] Mean platelet volume determi nationOrdered By: Carlos Cavazos on 12-24-2024 Platelet mean volume (Bld) [Entitic vol] 10.4 fL 6.2-12.0 [facility] Platelet countOrdered By: Sharif Crouch on 12-24-2024 Platelets (Bld) [#/Vol] 290 10*3/uL 150-450 [facility] Potassium measurement (mass/ volume)Ordered By: Carlos Cavazos on 12-24-2024 Potassium (Unsp spec) [Mass/Vol] 4.2 mmol/L 3.3-5.1 [facility] RBC Auto (Bld) [#/Vol]Ordere d By: Carlos Cavazos on 12-24-2024 RBC (Bld) [#/Vol] 4.66 10*6/uL 4.6-6.2 [facility] Serum creatinine measurement (mass/volume)Ordered By: Carlos Cavazos on 12-24-2024 Creatinine [Mass/Vol] 0.82 mg/dL 0.70-1.20 [facility] Serum glucose measurement (m ass/volume)Ordered By: Carlos Cavazos on 12-24-2024 Glucose [Mass/Vol] 88 mg/dL 70-99 [facility] Serum or plasma calcium oral urement (mass/volume)Ordered By: Carlos Cavazos on 12-24-2024 Calcium [Mass/Vol] 8.8 mg/dL 7.6-11.0 [facility] Serum or plasma urea nitroge n measurement (mass/volume)Ordered By: Carlos Cavazos on 12-24-2024 Urea nitrogen [Mass/Vol] 16 mg/dL 4-19 [facility] Sodium levelOrdered By: Moe Cavazos on 12-24-2024 Sodium [Moles/Vol] 139 mmol/L 133-145 [facility] White blood cell (WBC) count Ordered By: Carlos Cavazos on 12-24-2024 WBC (Bld) [#/Vol] 16.6 10*3/uL High 4.4-11.0 [facility] International normalized rat io (INR) calculationOrdered By: Karon Corrales on 12-22-2024 INR Coag (Bld) [Relative time] 2.6 {INR} [facility] Prothrombin Time w/INRon INR Coag (PPP) [Relative time] 2.6 {INR} Normal [facility] Comment on above: Order Comment: 411.1 Performed By: #### L 300.3978 ####[facility] [address] [facility]. [place], [place], [address] PT Coag (PPP) [Time] 28.8 s High 11.7-14.9 [facility] Comment on above: Order Comment: 411.1 Performed By: #### L 300.3900 ####[facility] [address] [facility] [place], [place], [address] Prothrombin timeOrdered By: Karon Corrales on 12-22-2024 PT Coag (PPP) [Time] 28.8 s High 11.7-14.9 [facility] International normalized rat io (INR) calculationOrdered By: Karon Corrales on 12-18-2024 INR Coag (Bld) [Relative time] 2.4 {INR} [facility] Prothrombin Time w/INRon INR Coag (PPP) [Relative time] 2.4 {INR} Normal [facility] Comment on above: Order Comment: 411.1 Performed By: #### L 300.3900 ####[facility] [address] [place], [place], [address] PT Coag (PPP) [Time] 26.7 s High 11.7-14.9 [facility] Comment on above: Order Comment: 411.1 Performed By: #### L 300.3900 ####[facility] [address] [place], [place], [address] Prothrombin timeOrdered By: Karon Corrales on 12-18-2024 PT Coag (PPP) [Time] 26.7 s High 11.7-14.9 [facility] International normalized rat io (INR) calculationOrdered By: Karon Corrales on 12-15-2024 INR Coag (Bld) [Relative time] 2.3 {INR} [facility] Prothrombin Time w/INRon INR Coag (PPP) [Relative time] 2.3 {INR} Normal [facility] Comment on above: Order Comment: 411.1 Performed By: #### L 300.3900 ####[facility] [address] [place], [place], [address] Prothrombin timeOrdered By: Karon Corrales on 12-15-2024 PT Coag (PPP) [Time] 25.7 s High 11.7-14.9 [facility] Comment on above: Order Comment: 411.1 Performed By: #### L 300.3900 ####[facility] [address] [place], [place], [phone] International normalized rat io (INR) calculationOrdered By: Carlos Cavazos on 12-11-2024 INR Coag (Bld) [Relative time] 2.2 {INR} [facility] Prothrombin Time w/INRon INR Coag (PPP) [Relative time] 2.2 {INR} Normal [facility] Comment on above: Order Comment: 411-1 Performed By: #### L 300.3900 ####[facility] [address] [place], [address] Prothrombin timeOrdered By: Carlos Cavazos on 12-11-2024 PT Coag (PPP) [Time] 24.7 s High 11.7-14.9 [facility] Comment on above: Order Comment: 411-1 Performed By: #### L 300.3900 ####[facility] [address] [place], [place], [address] International normalized rat io (INR) calculationOrdered By: Karon Corrlaes on 12-08-2024 INR Coag (Bld) [Relative time] 2.2 {INR} [facility] Prothrombin Time w/INRon INR Coag (PPP) [Relative time] 2.2 {INR} Normal [facility] Comment on above: Order Comment: 411.1 Performed By: #### L 300.3900 ####[facility] [address] [place], [address] PT Coag (PPP) [Time] 25.0 s High 11.7-14.9 [facility] Comment on above: Order Comment: 411.1 Performed By: #### L 300.3900 ####[facility] [address] [place], [place], [address] Prothrombin timeOrdered By: Karon Corrales on 12-08-2024 PT Coag (PPP) [Time] 25.0 s High 11.7-14.9 [facility] International normalized rat io (INR) calculationOrdered By: Karon Corrales on 12-04-2024 INR Coag (Bld) [Relative time] 2.3 {INR} [facility] Prothrombin Time w/INRon INR Coag (PPP) [Relative time] 2.3 {INR} Normal [facility] Comment on above: Order Comment: 411.1 Performed By: #### L 300.3900 ####[facility] [address] [place], [address] PT Coag (PPP) [Time] 25.9 s High 11.7-14.9 [facility] Comment on above: Order Comment: 411.1 Performed By: #### L 300.3900 ####[facility] [address] [place], [address] Prothrombin timeOrdered By: Karon Corrales on 12-04-2024 PT Coag (PPP) [Time] 25.9 s High 11.7-14.9 [facility] International normalized rat io (INR) calculationOrdered By: Karon Corrales on 12-02-2024 INR Coag (Bld) [Relative time] 2.5 {INR} [facility] Prothrombin Time w/INRon INR Coag (PPP) [Relative time] 2.5 {INR} Normal [facility] Comment on above: Order Comment: 411.1 Performed By: #### L 300.3900 ####[facility] [address] [place], [address] PT Coag (PPP) [Time] 27.3 s High 11.7-14.9 [facility] Comment on above: Order Comment: 411.1 Performed By: #### L 300.3900 ####[facility] [address] [place], [address] Prothrombin timeOrdered By: Karon Corrales on 12-02-2024 PT Coag (PPP) [Time] 27.3 s High 11.7-14.9 [facility] International normalized rat io (INR) calculationOrdered By: Carlos Cavazos on 12-01-2024 INR Coag (Bld) [Relative time] 2.3 {INR} [facility] Prothrombin Time w/INRon INR Coag (PPP) [Relative time] 2.3 {INR} Normal [facility] Comment on above: Order Comment: 411-1 Performed By: #### L 300.3900 ####[facility] [address] [place], [address] PT Coag (PPP) [Time] 26.0 s High 11.7-14.9 [facility] Comment on above: Order Comment: 411-1 Performed By: #### L 300.3900 ####[facility] [address] [place], [address] Prothrombin timeOrdered By: Carlos Cavazos on 12-01-2024 PT Coag (PPP) [Time] 26.0 s High 11.7-14.9 [facility] International normalized rat io (INR) calculationOrdered By: Carlos Cavazos on 11-28-2024 INR Coag (Bld) [Relative time] 3.1 {INR} [facility] Prothrombin Time w/INRon INR Coag (PPP) [Relative time] 3.1 {INR} Normal [facility] Comment on above: Order Comment: 411-1 Performed By: #### L 300.3900 ####[facility] [address] [place], [address] PT Coag (PPP) [Time] 32.8 s High 11.7-14.9 [facility] Comment on above: Order Comment: 411-1 Performed By: #### L 300.3900 ####[facility] [address] [place], [address] Prothrombin timeOrdered By: Carlos Cavazos on 11-28-2024 PT Coag (PPP) [Time] 32.8 s High 11.7-14.9 [facility] International normalized rat io (INR) calculationOrdered By: Karon Corrales on 11-27-2024 INR Coag (Bld) [Relative time] 3.3 {INR} [facility] Prothrombin Time w/INRon INR Coag (PPP) [Relative time] 3.3 {INR} Normal [facility] Comment on above: Order Comment: 411.1 Performed By: #### L 300.3900 ####[facility] [address] [place], [place], [phone] PT Coag (PPP) [Time] 34.3 s High 11.7-14.9 [facility] Comment on above: Order Comment: 411.1 Performed By: #### L 300.3900 ####[facility] [address] [place], [place], [phone]([phone] Prothrombin timeOrdered By: Karon Corrales on 11-27-2024 PT Coag (PPP) [Time] 34.3 s High 11.7-14.9 [facility] International normalized rat io (INR) calculationOrdered By: Karon Corrales on 11-24-2024 INR Coag (Bld) [Relative time] 2.8 {INR} [facility] Prothrombin Time w/INRon INR Coag (PPP) [Relative time] 2.8 {INR} Normal [facility] Comment on above: Order Comment: 411.2 Performed By: #### L 300.3900 ####[facility] [address] [place], [place], [phone] PT Coag (PPP) [Time] 30.0 s High 11.7-14.9 [facility] Comment on above: Order Comment: 411.2 Performed By: #### L 300.3900 ####[facility] [address] [place], [place], [phone]([phone] Prothrombin timeOrdered By: Karon Corrales on 11-24-2024 PT Coag (PPP) [Time] 30.0 s High 11.7-14.9 [facility] International normalized rat io (INR) calculationOrdered By: Karon Corrales on 11-20-2024 INR Coag (Bld) [Relative time] 3.0 {INR} [facility] Prothrombin Time w/INRon INR Coag (PPP) [Relative time] 3.0 {INR} Normal [facility] Comment on above: Order Comment: 411.2 Performed By: #### L 300.3900 ####[facility] [address] [place], [place], [phone] PT Coag (PPP) [Time] 32.0 s High 11.7-14.9 [facility] Comment on above: Order Comment: 411.2 Performed By: #### L 300.3900 ####[facility] [address] [place], [place], [phone] Prothrombin timeOrdered By: Karon Corrales on 11-20-2024 PT Coag (PPP) [Time] 32.0 s High 11.7-14.9 [facility] International normalized rat io (INR) calculationOrdered By: Karon Corrales on 11-17-2024 INR Coag (Bld) [Relative time] 2.9 {INR} [facility] Prothrombin Time w/INRon INR Coag (PPP) [Relative time] 2.9 {INR} Normal [facility] Comment on above: Order Comment: 411.2 Performed By: #### L 300.3900 ####[facility] [address] [place], [place], [phone] PT Coag (PPP) [Time] 30.7 s High 11.7-14.9 [facility] Comment on above: Order Comment: 411.2 Performed By: #### L 300.3900 ####[facility] [address] [place], [place], [phone] Prothrombin timeOrdered By: Karon Corrales on 11-17-2024 PT Coag (PPP) [Time] 30.7 s High 11.7-14.9 [facility] International normalized rat io (INR) calculationOrdered By: Karon Corrales on 11-13-2024 INR Coag (Bld) [Relative time] 2.2 {INR} [facility] Prothrombin Time w/INRon INR Coag (PPP) [Relative time] 2.2 {INR} Normal [facility] Comment on above: Order Comment: 411.2 Performed By: #### L 300.3900 ####[facility] [address] [place], [place], [phone](830 PT Coag (PPP) [Time] 24.7 s High 11.7-14.9 [facility] Comment on above: Order Comment: 411.2 Performed By: #### L 300.3900 ####[facility] [address] [place], [place], [phone] Prothrombin timeOrdered By: Karon Corrales on 11-13-2024 PT Coag (PPP) [Time] 24.7 s High 11.7-14.9 [facility] International normalized rat io (INR) calculationOrdered By: Karon Corrales on 11-10-2024 INR Coag (Bld) [Relative time] 2.6 {INR} [facility] Prothrombin Time w/INRon INR Coag (PPP) [Relative time] 2.6 {INR} Normal [facility] Comment on above: Order Comment: 411.2 Performed By: #### L 300.3900 ####[facility] [address] [place], [address] PT Coag (PPP) [Time] 28.7 s High 11.7-14.9 [facility] Comment on above: Order Comment: 411.2 Performed By: #### L 300.3900 ####[facility] [address] [place], [place], [phone](881 Prothrombin timeOrdered By: Karon Corrales on 11-10-2024 PT Coag (PPP) [Time] 28.7 s High 11.7-14.9 [facility] International normalized rat io (INR) calculationOrdered By: Karon Corrales on 11-06-2024 INR Coag (Bld) [Relative time] 3.1 {INR} [facility] Prothrombin Time w/INRon INR Coag (PPP) [Relative time] 3.1 {INR} Normal [facility] Comment on above: Order Comment: 411.2 Performed By: #### L 300.3900 ####[facility] [address] [place], [address] Prothrombin timeOrdered By: Karon Corrales on 11-06-2024 PT Coag (PPP) [Time] 33.0 s High 11.7-14.9 [facility] Comment on above: Order Comment: 411.2 Performed By: #### L 300.3900 ####[facility] [address] [place], [address] International normalized rat io (INR) calculationOrdered By: Carlos Cavazos on 11-03-2024 INR Coag (Bld) [Relative time] 3.0 {INR} [facility] Prothrombin Time w/INRon INR Coag (PPP) [Relative time] 3.0 {INR} Normal [facility] Comment on above: Order Comment: 411-2 Performed By: #### L 300.3900 ####[facility] [address] [place], [address] PT Coag (PPP) [Time] 31.4 s High 11.7-14.9 [facility] Comment on above: Order Comment: 411-2 Performed By: #### L 300.3900 ####[facility] [address] [place], [address] Prothrombin timeOrdered By: Carlos Cavazos on 11-03-2024 PT Coag (PPP) [Time] 31.4 s High 11.7-14.9 [facility] [employer] normalized rat io (INR) calculationOrdered By: Karon Corrales on 10-30-2024 INR Coag (Bld) [Relative time] 2.4 {INR} [facility] Prothrombin Time w/INRon INR Coag (PPP) [Relative time] 2.4 {INR} Normal [facility] Comment on above: Performed By: #### L 300.3900 ####[facility] [address] [place], [place], [phone] PT Coag (PPP) [Time] 26.3 s High 11.7-14.9 [facility] Comment on above: Performed By: #### L 300.3900 ####[facility] [address] [place], [place], [phone] Prothrombin timeOrdered By: Karon Corrales on 10-30-2024 PT Coag (PPP) [Time] 26.3 s High 11.7-14.9 [facility] [employer] normalized rat io (INR) calculationOrdered By: Karon Corrales on 10-27-2024 INR Coag (Bld) [Relative time] 2.2 {INR} [facility] Prothrombin Time w/INRon INR Coag (PPP) [Relative time] 2.2 {INR} Normal [facility] Comment on above: Order Comment: 411.2 Performed By: #### L 300.3900 ####[facility] [address] [place], [place], [address] Prothrombin timeOrdered By: Karon Corrales on 10-27-2024 PT Coag (PPP) [Time] 24.5 s High 11.7-14.9 [facility] Comment on above: Order Comment: 411.2 Performed By: #### L 300.3900 ####[facility] [address] [place], [address] International normalized rat io (INR) calculationOrdered By: Karon Corrales on 10-23-2024 INR Coag (Bld) [Relative time] 2.5 {INR} [facility] Prothrombin Time w/INRon INR Coag (PPP) [Relative time] 2.5 {INR} Normal [facility] Comment on above: Order Comment: 411.2 Performed By: #### L 300.3900 ####[facility] [address], [address] PT Coag (PPP) [Time] 27.9 s High 11.7-14.9 [facility] Comment on above: Order Comment: 411.2 Performed By: #### L 300.3900 ####[facility] [address], [address] Prothrombin timeOrdered By: Karon Corrales on 10-23-2024 PT Coag (PPP) [Time] 27.9 s High 11.7-14.9 [facility] [employer] normalized rat io (INR) calculationOrdered By: Karon Corrales on 10-20-2024 INR Coag (Bld) [Relative time] 3.1 {INR} [facility] Prothrombin Time w/INRon INR Coag (PPP) [Relative time] 3.1 {INR} Normal [facility] Comment on above: Order Comment: 411.2 Performed By: #### L 300.3900 ####[facility] [address], [address] PT Coag (PPP) [Time] 32.8 s High 11.7-14.9 [facility] Comment on above: Order Comment: 411.2 Performed By: #### L 300.3900 ####[facility] [address], [address] Prothrombin timeOrdered By: Karon Corrales on 10-20-2024 PT Coag (PPP) [Time] 32.8 s High 11.7-14.9 [facility] [employer] normalized rat io (INR) calculationOrdered By: Karon Corrales on 10-16-2024 INR Coag (Bld) [Relative time] 2.8 {INR} [facility] Prothrombin Time w/INRon INR Coag (PPP) [Relative time] 2.8 {INR} Normal [facility] Comment on above: Order Comment: 411.2 Performed By: #### L 300.3900 ####[facility] [address] [place], [place], [phone]([phone] PT Coag (PPP) [Time] 30.4 s High 11.7-14.9 [facility] Comment on above: Order Comment: 411.2 Performed By: #### L 300.3900 ####[facility] [address] [place], [address]([phone] Prothrombin timeOrdered By: Karon Corrales on 10-16-2024 PT Coag (PPP) [Time] 30.4 s High 11.7-14.9 [facility] [employer] normalized rat io (INR) calculationOrdered By: Carlos Cavazos on 10-13-2024 INR Coag (Bld) [Relative time] 1.9 {INR} [facility] Prothrombin Time w/INRon INR Coag (PPP) [Relative time] 1.9 {INR} Normal [facility] Comment on above: Order Comment: 411-2 Performed By: #### L 300.3900 ####[facility] [address] [place], [place], [phone] PT Coag (PPP) [Time] 22.4 s High 11.7-14.9 [facility] Comment on above: Order Comment: 411-2 Performed By: #### L 300.3900 ####[facility] [address] [place], [place], [phone] Prothrombin timeOrdered By: Carlos Cavazos on 10-13-2024 PT Coag (PPP) [Time] 22.4 s High 11.7-14.9 [facility] [employer] normalized rat io (INR) calculationOrdered By: Karon Corrales on 10-09-2024 INR Coag (Bld) [Relative time] 3.0 {INR} [facility] Prothrombin Time w/INRon INR Coag (PPP) [Relative time] 3.0 {INR} Normal [facility] Comment on above: Order Comment: 411.2 Performed By: #### L 300.3900 ####[facility] [address] [place], [address] Prothrombin timeOrdered By: Karon Corrales on 10-09-2024 PT Coag (PPP) [Time] 31.8 s High 11.7-14.9 [facility] Comment on above: Order Comment: 411.2 Performed By: #### L 300.3900 ####[facility] [address] [place], [address] International normalized rat io (INR) calculationOrdered By: Carlos Cavazos on 10-06-2024 INR Coag (Bld) [Relative time] 2.7 {INR} [facility] Prothrombin Time w/INRon INR Coag (PPP) [Relative time] 2.7 {INR} Normal [facility] Comment on above: Order Comment: 411-2 Performed By: #### L 300.3900 ####[facility] [address] [place], [address] PT Coag (PPP) [Time] 29.6 s High 11.7-14.9 [facility] Comment on above: Order Comment: 411-2 Performed By: #### L 300.3900 ####[facility] [address] [place], [address] Prothrombin timeOrdered By: Carlos Cavazos on 10-06-2024 PT Coag (PPP) [Time] 29.6 s High 11.7-14.9 [facility] [employer] normalized rat io (INR) calculationOrdered By: Karon Corrales on 10-02-2024 INR Coag (Bld) [Relative time] 2.3 {INR} [facility] Prothrombin Time w/INRon INR Coag (PPP) [Relative time] 2.3 {INR} Normal [facility] Comment on above: Order Comment: 411.2 Performed By: #### L 300.3900 ####[facility] [address] [place], [address] PT Coag (PPP) [Time] 26.0 s High 11.7-14.9 [facility] Comment on above: Order Comment: 411.2 Performed By: #### L 300.3900 ####[facility] [address] [place], [address] Prothrombin timeOrdered By: Karon Corrales on 10-02-2024 PT Coag (PPP) [Time] 26.0 s High 11.7-14.9 [facility] [employer] normalized rat io (INR) calculationOrdered By: Karon Corrales on 09-30-2024 INR Coag (Bld) [Relative time] 3.1 {INR} [facility] Prothrombin Time w/INRon INR Coag (PPP) [Relative time] 3.1 {INR} Normal [facility] Comment on above: Order Comment: 411.2 Performed By: #### L 300.3900 ####[facility] [address] [place], [address] PT Coag (PPP) [Time] 32.6 s High 11.7-14.9 [facility] Comment on above: Order Comment: 411.2 Performed By: #### L 300.3900 ####[facility] [address] [place], [place], [phone](461 Prothrombin timeOrdered By: Karon Corrales on 09-30-2024 PT Coag (PPP) [Time] 32.6 s High 11.7-14.9 [facility] [employer] normalized rat io (INR) calculationOrdered By: Karon Corrales on 09-25-2024 INR Coag (Bld) [Relative time] 2.4 {INR} [facility] Prothrombin Time w/INRon INR Coag (PPP) [Relative time] 2.4 {INR} Normal [facility] Comment on above: Order Comment: 411.2 Performed By: #### L 300.3900 ####[facility] [address] [place], [address] Prothrombin timeOrdered By: Karon Corrales on 09-25-2024 PT Coag (PPP) [Time] 26.7 s High 11.7-14.9 [facility] Comment on above: Order Comment: 411.2 Performed By: #### L 300.3900 ####[facility] [address] [place], [place], [phone] International normalized rat io (INR) calculationOrdered By: Karon Corrales on 09-22-2024 INR Coag (Bld) [Relative time] 2.5 {INR} [facility] Prothrombin Time w/INRon INR Coag (PPP) [Relative time] 2.5 {INR} Normal [facility] Comment on above: Order Comment: 411.2 Performed By: #### L 300.3900 ####[facility] [address] [place], [place], [phone] Prothrombin timeOrdered By: Karon Corrales on 09-22-2024 PT Coag (PPP) [Time] 27.4 s High 11.7-14.9 [facility] Comment on above: Order Comment: 411.2 Performed By: #### L 300.3900 ####[facility] [address] [place], [address] International normalized rat io (INR) calculationOrdered By: Karon Corrales on 09-18-2024 INR Coag (Bld) [Relative time] 2.2 {INR} [facility] Prothrombin Time w/INRon INR Coag (PPP) [Relative time] 2.2 {INR} Normal [facility] Comment on above: Order Comment: 411.2 Performed By: #### L 300.3900 ####[facility] [address] [place], [place], [phone] PT Coag (PPP) [Time] 25.1 s High 11.7-14.9 [facility] Comment on above: Order Comment: 411.2 Performed By: #### L 300.3900 ####[facility] [address] [place], [place], [phone] Prothrombin timeOrdered By: Karon Corrales on 09-18-2024 PT Coag (PPP) [Time] 25.1 s High 11.7-14.9 [facility] [employer] normalized rat io (INR) calculationOrdered By: Carlos Cavazos on 09-15-2024 INR Coag (Bld) [Relative time] 2.4 {INR} [facility] Prothrombin Time w/INRon INR Coag (PPP) [Relative time] 2.4 {INR} Normal [facility] Comment on above: Order Comment: 411-2 Performed By: #### L 300.3900 ####[facility] [address] [place], [place], [phone] Prothrombin timeOrdered By: Carlos Cavazos on 09-15-2024 PT Coag (PPP) [Time] 26.3 s High 11.7-14.9 [facility] Comment on above: Order Comment: 411-2 Performed By: #### L 300.3900 ####[facility] [address] [place], [place], [phone] International normalized rat io (INR) calculationOrdered By: Karon Corrales on 09-11-2024 INR Coag (Bld) [Relative time] 2.0 {INR} [facility] Prothrombin Time w/INRon INR Coag (PPP) [Relative time] 2.0 {INR} Normal [facility] Comment on above: Order Comment: 411.2 Performed By: #### L 300.3900 ####[facility] [address] [place], [place], [phone] PT Coag (PPP) [Time] 22.9 s High 11.7-14.9 [facility] Comment on above: Order Comment: 411.2 Performed By: #### L 300.3900 ####[facility] [address] [place], [place], [phone]([phone] Prothrombin timeOrdered By: Karon Corrales on 09-11-2024 PT Coag (PPP) [Time] 22.9 s High 11.7-14.9 [facility] [employer] normalized rat io (INR) calculationOrdered By: Karon Corrales on 09-08-2024 INR Coag (Bld) [Relative time] 2.0 {INR} [facility] Prothrombin Time w/INRon INR Coag (PPP) [Relative time] 2.0 {INR} Normal [facility] Comment on above: Order Comment: 411.2 Performed By: #### L 300.3900 ####[facility] [address] [place], [place], [phone] PT Coag (PPP) [Time] 22.8 s High 11.7-14.9 [facility] Comment on above: Order Comment: 411.2 Performed By: #### L 300.3900 ####[facility] [address] [place], [place], [phone]([phone] Prothrombin timeOrdered By: Karon Corrales on 09-08-2024 PT Coag (PPP) [Time] 22.8 s High 11.7-14.9 [facility] International normalized rat io (INR) calculationOrdered By: Carlos Cavazos on 09-04-2024 INR Coag (Bld) [Relative time] 1.7 {INR} [facility] Prothrombin Time w/INRon INR Coag (PPP) [Relative time] 1.7 {INR} Normal [facility] Comment on above: Order Comment: 411-2 Performed By: #### L 300.3900 ####[facility] [address], [address](672 PT Coag (PPP) [Time] 20.8 s High 11.7-14.9 [facility] Comment on above: Order Comment: 411-2 Performed By: #### L 300.3900 ####[facility] [address] [place], [address] Prothrombin timeOrdered By: Carlos Cavazos on 09-04-2024 PT Coag (PPP) [Time] 20.8 s High 11.7-14.9 [facility] [employer] normalized rat io (INR) calculationOrdered By: Carlos Cavazos on 09-01-2024 INR Coag (Bld) [Relative time] 2.9 {INR} [facility] Prothrombin Time w/INRon INR Coag (PPP) [Relative time] 2.9 {INR} Normal [facility] Comment on above: Order Comment: 411-2 Performed By: #### L 300.3900 ####[facility] [address], [address] PT Coag (PPP) [Time] 30.7 s High 11.7-14.9 [facility] Comment on above: Order Comment: 411-2 Performed By: #### L 300.3900 ####[facility] [address] [place], [address]([phone] Prothrombin timeOrdered By: Carlos Cavazos on 09-01-2024 PT Coag (PPP) [Time] 30.7 s High 11.7-14.[address] [facility] International normalized rat io (INR) calculationOrdered By: Carlos Cavazos on 08-28-2024 INR Coag (Bld) [Relative time] 2.4 {INR} [facility] Prothrombin Time w/INRon INR Coag (PPP) [Relative time] 2.4 {INR} Normal [facility] Comment on above: Order Comment: 411-2 Performed By: #### L 300.3900 ####[facility] [address] [place], [address] Prothrombin timeOrdered By: Carlos Cavazos on 08-28-2024 PT Coag (PPP) [Time] 26.7 s High 11.7-14.9 [facility] Comment on above: Order Comment: 411-2 Performed By: #### L 300.3900 ####[facility] [address] [place], [address] International normalized rat io (INR) calculationOrdered By: Karon Corrales on 08-25-2024 INR Coag (Bld) [Relative time] 1.8 {INR} [facility] Prothrombin Time w/INRon INR Coag (PPP) [Relative time] 1.8 {INR} Normal [facility] Comment on above: Order Comment: 411.2 Performed By: #### L 300.3900 ####[facility] [address] [place], [place], [phone] PT Coag (PPP) [Time] 21.6 s High 11.7-14.9 [facility] Comment on above: Order Comment: 411.2 Performed By: #### L 300.3900 ####[facility] [address] [place], [address] Prothrombin timeOrdered By: Karon Corrales on 08-25-2024 PT Coag (PPP) [Time] 21.6 s High 11.7-14.9 [facility] [employer] normalized rat io (INR) calculationOrdered By: Karon Corrales on 08-21-2024 INR Coag (Bld) [Relative time] 1.7 {INR} [facility] PSA, total screeningOrdered By: Karon Corrales on 08-21-2024 Prostate Specific Antigen Screen 0.52 ng/mL 0.02-4.00 [facility] Comment on above: This test was perfor med using the [employer] tPSA method. Measured values of a patient sample can vary depending on the testing procedure used. PSA values determined on patient samples by different testing procedures cannot be used interchangeably. If there is a change in PSA assays while monitoring therapy, sequential testing should be performed to confirm baseline values. PSA,Total - Annual Screenon 08-21-2024 PSA,TOT SCREEN 0.52 ng/mL Normal 0.02-4.00 [facility] Comment on above: Order Comment: 411.2 [...] values. Performed By: #### L 501.9910, L300.3900 ####[facility] [address], [address] Prothrombin Time w/INRon INR Coag (PPP) [Relative time] 1.7 {INR} Normal [facility] Comment on above: Order Comment: 411.2 Performed By: #### L 501.9910, L300.3900 ####[facility] [address] [place], [address] Prothrombin timeOrdered By: Karon Corrales on 08-21-2024 PT Coag (PPP) [Time] 20.1 s High 11.7-14.9 [facility] Comment on above: Order Comment: 411.2 Performed By: #### L 501.9910, L300.3900 ####[facility] [address] [place], [place], [phone] International normalized rat io (INR) calculationOrdered By: Karon Corrales on 08-18-2024 INR Coag (Bld) [Relative time] 3.0 {INR} [facility] Prothrombin Time w/INRon INR Coag (PPP) [Relative time] 3.0 {INR} Normal [facility] Comment on above: Order Comment: 411.2 Performed By: #### L 300.3900 ####[facility] [address] [place], [place], [phone](811) PT Coag (PPP) [Time] 31.4 s High 11.7-14.9 [facility] Comment on above: Order Comment: 411.2 Performed By: #### L 300.3900 ####[facility] [address] [place], [place], [phone]([phone] Prothrombin timeOrdered By: Karon Corrales on 08-18-2024 PT Coag (PPP) [Time] 31.4 s High 11.7-14.9 [facility] [employer] normalized rat io (INR) calculationOrdered By: Karon Corrales on 08-14-2024 INR Coag (Bld) [Relative time] 2.4 {INR} [facility] Prothrombin Time w/INRon INR Coag (PPP) [Relative time] 2.4 {INR} Normal [facility] Comment on above: Order Comment: 411.2 Performed By: #### L 300.3900 ####[facility] [address] [place], [address] PT Coag (PPP) [Time] 26.6 s High 11.7-14.9 [facility] Comment on above: Order Comment: 411.2 Performed By: #### L 300.3900 ####[facility] [address] [place], [place], [phone](692) Prothrombin timeOrdered By: Karon Corrales on 08-14-2024 PT Coag (PPP) [Time] 26.6 s High 11.7-14.9 [facility] [employer] normalized rat io (INR) calculationOrdered By: Karon Corrales on 08-11-2024 INR Coag (Bld) [Relative time] 3.1 {INR} [facility] Prothrombin Time w/INRon INR Coag (PPP) [Relative time] 3.1 {INR} Normal [facility] Comment on above: Order Comment: 411.2 Performed By: #### L 300.3900 ####[facility] [address] [place], [place], [phone]) PT Coag (PPP) [Time] 32.4 s High 11.7-14.9 [facility] Comment on above: Order Comment: 411.2 Performed By: #### L 300.3900 ####[facility] [address] [place], [place], [phone](110 Prothrombin timeOrdered By: Karon Corrales on 08-11-2024 PT Coag (PPP) [Time] 32.4 s High 11.7-14.9 [facility] [employer] normalized rat io (INR) calculationOrdered By: Carlos Cavazos on 08-07-2024 INR Coag (Bld) [Relative time] 2.8 {INR} [facility] Prothrombin Time w/INRon INR Coag (PPP) [Relative time] 2.8 {INR} Normal [facility] Comment on above: Order Comment: 411-2 Performed By: #### L 300.3900 ####[facility] [address] [place], [place], [phone] PT Coag (PPP) [Time] 30.3 s High 11.7-14.9 [facility] Comment on above: Order Comment: 411-2 Performed By: #### L 300.3900 ####[facility] [address] [place], [address] Prothrombin timeOrdered By: Carlos Cavazos on 08-07-2024 PT Coag (PPP) [Time] 30.3 s High 11.7-14.9 [facility] International normalized rat io (INR) calculationOrdered By: Carlos Cavazos on 08-04-2024 INR Coag (Bld) [Relative time] 1.9 {INR} [facility] Prothrombin Time w/INRon INR Coag (PPP) [Relative time] 1.9 {INR} Normal [facility] Comment on above: Order Comment: 411-2 Performed By: #### L 300.3900 ####[facility] [address] [place], [place], [phone] PT Coag (PPP) [Time] 22.1 s High 11.7-14.9 [facility] Comment on above: Order Comment: 411-2 Performed By: #### L 300.3900 ####[facility] [address] [place], [place], [phone] Prothrombin timeOrdered By: Carlos Cavazos on 08-04-2024 PT Coag (PPP) [Time] 22.1 s High 11.7-14.9 [facility] International normalized rat io (INR) calculationOrdered By: Karon Corrales on 07-31-2024 INR Coag (Bld) [Relative time] 3.2 {INR} [facility] Prothrombin Time w/INRon INR Coag (PPP) [Relative time] 3.2 {INR} Normal [facility] Comment on above: Order Comment: 411.2 Performed By: #### L 300.3900 ####[facility] [address] [place], [place], [phone] PT Coag (PPP) [Time] 33.5 s High 11.7-14.9 [facility] Comment on above: Order Comment: 411.2 Performed By: #### L 300.3900 ####[facility] [address] [place], [place], [phone] Prothrombin timeOrdered By: Karon Corrales on 07-31-2024 PT Coag (PPP) [Time] 33.5 s High 11.7-14.9 [facility] [employer] normalized rat io (INR) calculationOrdered By: Karon Corrales on 07-28-2024 INR Coag (Bld) [Relative time] 2.7 {INR} [facility] Prothrombin Time w/INRon INR Coag (PPP) [Relative time] 2.7 {INR} Normal [facility] Comment on above: Order Comment: 411.2 Performed By: #### L 300.3900 ####[facility] [address] [place], [place], [phone] PT Coag (PPP) [Time] 29.6 s High 11.7-14.9 [facility] Comment on above: Order Comment: 411.2 Performed By: #### L 300.3900 ####[facility] [address] [place], [place], [phone] Prothrombin timeOrdered By: Karon Corrales on 07-28-2024 PT Coag (PPP) [Time] 29.6 s High 11.7-14.9 [facility] [employer] normalized rat io (INR) calculationOrdered By: Carlos Cavazos on 07-25-2024 INR Coag (Bld) [Relative time] 3.0 {INR} [facility] Prothrombin Time w/INRon INR Coag (PPP) [Relative time] 3.0 {INR} Normal [facility] Comment on above: Order Comment: 411-2 Performed By: #### L 300.3900 ####[facility] [address] [place], [address] Prothrombin timeOrdered By: Carlos Cavazos on 07-25-2024 PT Coag (PPP) [Time] 32.1 s High 11.7-14.9 [facility] Comment on above: Order Comment: 411-2 Performed By: #### L 300.3900 ####[facility] [address] [place], [place], [phone] International normalized rat io (INR) calculationOrdered By: Karon Corrales on 07-24-2024 INR Coag (Bld) [Relative time] 3.4 {INR} [facility] Prothrombin Time w/INRon INR Coag (PPP) [Relative time] 3.4 {INR} Normal [facility] Comment on above: Order Comment: 411.2 Performed By: #### L 300.3900 ####[facility] [address] [place], [place], [phone] Prothrombin timeOrdered By: Karon Corrales on 07-24-2024 PT Coag (PPP) [Time] 35.4 s High 11.7-14.9 [facility] Comment on above: Order Comment: 411.2 Performed By: #### L 300.3900 ####[facility] [address] [place], [place], [phone] International normalized rat io (INR) calculationOrdered By: Karon Corrales on 07-21-2024 INR Coag (Bld) [Relative time] 1.6 {INR} [facility] Prothrombin Time w/INRon INR Coag (PPP) [Relative time] 1.6 {INR} Normal [facility] Comment on above: Order Comment: 411.2 Performed By: #### L 300.3900 ####[facility] [address] [place], [place], [phone] PT Coag (PPP) [Time] 19.6 s High 11.7-14.9 [facility] Comment on above: Order Comment: 411.2 Performed By: #### L 300.3900 ####[facility] [address] [place], [place], [phone]) Prothrombin timeOrdered By: Karon Corrales on 07-21-2024 PT Coag (PPP) [Time] 19.6 s High 11.7-14.9 [facility] [employer] normalized rat io (INR) calculationOrdered By: Karon Corrales on 07-17-2024 INR Coag (Bld) [Relative time] 2.9 {INR} [facility] Prothrombin Time w/INRon INR Coag (PPP) [Relative time] 2.9 {INR} Normal [facility] Comment on above: Order Comment: 411.2 Performed By: #### L 300.3900 ####[facility] [address] [place], [place], [phone] PT Coag (PPP) [Time] 31.1 s High 11.7-14.9 [facility] Comment on above: Order Comment: 411.2 Performed By: #### L 300.3900 ####[facility] [address] [place], [address] Prothrombin timeOrdered By: Karon Corrales on 07-17-2024 PT Coag (PPP) [Time] 31.1 s High 11.7-14.9 [facility] [employer] normalized rat io (INR) calculationOrdered By: Carlos Cavazos on 07-14-2024 INR Coag (Bld) [Relative time] 2.5 {INR} [facility] Prothrombin Time w/INRon INR Coag (PPP) [Relative time] 2.5 {INR} Normal [facility] Comment on above: Order Comment: 411-2 Performed By: #### L 300.3900 ####[facility] [address] [place], [address] PT Coag (PPP) [Time] 27.5 s High 11.7-14.9 [facility] Comment on above: Order Comment: 411-2 Performed By: #### L 300.3900 ####[facility] [address] [place], [address] Prothrombin timeOrdered By: Carlos Cavazos on 07-14-2024 PT Coag (PPP) [Time] 27.5 s High 11.7-14.9 [facility] [employer] normalized rat io (INR) calculationOrdered By: Carlos Cavazos on 07-11-2024 INR Coag (Bld) [Relative time] 2.5 {INR} [facility] Prothrombin Time w/INRon INR Coag (PPP) [Relative time] 2.5 {INR} Normal [facility] Comment on above: Performed By: #### L 300.3900 ####[facility] [address] [place], [address] PT Coag (PPP) [Time] 27.7 s High 11.7-14.9 [facility] Comment on above: Performed By: #### L 300.3900 ####[facility] [address] [place], [place], [phone] Prothrombin timeOrdered By: Carlos Cavazos on 07-11-2024 PT Coag (PPP) [Time] 27.7 s High 11.7-14.9 [facility] Prothrombin Time w/INRon INR Normal [facility] Comment on above: Order Comment: 411.2 Result Comment: QNS TUBE NOT FILLED Performed By: #### L 300.3900 ####[facility] [address] [place], [place], [phone] PROTIME Normal 11.7-14.9 [facility] Comment on above: Order Comment: 411.2 Result Comment: QNS TUBE NOT FILLED Performed By: #### L 300.3900 ####[facility] [address] [place], [place], [phone]) International normalized rat io (INR) calculationOrdered By: Kvng Crisostomo on 07-07-2024 INR Coag (Bld) [Relative time] 2.5 {INR} [facility] Prothrombin Time w/INRon INR Coag (PPP) [Relative time] 2.5 {INR} Normal [facility] Comment on above: Order Comment: 411.2 Performed By: #### L 300.3900 ####[facility] [address] [place], [address] PT Coag (PPP) [Time] 27.2 s High 11.7-14.9 [facility] Comment on above: Order Comment: 411.2 Performed By: #### L 300.3900 ####[facility] [address] [place], [address] Prothrombin timeOrdered By: Kvng Crisostomo on 07-07-2024 PT Coag (PPP) [Time] 27.2 s High 11.7-14.9 [facility] normalized rat io (INR) calculationOrdered By: Kvng Crisostomo on 07-03-2024 INR Coag (Bld) [Relative time] 2.5 {INR} [facility] Prothrombin Time w/INRon INR Coag (PPP) [Relative time] 2.5 {INR} Normal [facility] Comment on above: Order Comment: 411.2 Performed By: #### L 300.3900 ####[facility] [address] [place], [address] PT Coag (PPP) [Time] 27.2 s High 11.7-14.9 [facility] Comment on above: Order Comment: 411.2 Performed By: #### L 300.3900 ####[facility] [address] [place], [address] Prothrombin timeOrdered By: Kvng Crisostomo on 07-03-2024 PT Coag (PPP) [Time] 27.2 s High 11.7-14.9 [facility] [employer] normalized rat io (INR) calculationOrdered By: Kvng Crisostomo on 06-30-2024 INR Coag (Bld) [Relative time] 2.4 {INR} [facility] Prothrombin Time w/INRon INR Coag (PPP) [Relative time] 2.4 {INR} Normal [facility] Comment on above: Order Comment: 411.2 Performed By: #### L 300.3900 ####[facility] [address] [place], [address] PT Coag (PPP) [Time] 26.8 s High 11.7-14.9 [facility] Comment on above: Order Comment: 411.2 Performed By: #### L 300.3900 ####[facility] [address] [place], [address] Prothrombin timeOrdered By: Kvng Crisostomo on 06-30-2024 PT Coag (PPP) [Time] 26.8 s High 11.7-14.9 [facility] [employer] normalized rat io (INR) calculationOrdered By: Kvng Crisostomo on 06-26-2024 INR Coag (Bld) [Relative time] 2.5 {INR} [facility] Prothrombin Time w/INRon INR Coag (PPP) [Relative time] 2.5 {INR} Normal [facility] Comment on above: Order Comment: 411.2 Performed By: #### L 300.3900 ####[facility] [address] [place], [address] PT Coag (PPP) [Time] 27.5 s High 11.7-14.9 [facility] Comment on above: Order Comment: 411.2 Performed By: #### L 300.3900 ####[facility] [address] [place], [place], [phone] Prothrombin timeOrdered By: Kvng Crisostomo on 06-26-2024 PT Coag (PPP) [Time] 27.5 s High 11.7-14.9 [facility] [employer] normalized rat io (INR) calculationOrdered By: Carlos Cavazos on 06-23-2024 INR Coag (Bld) [Relative time] 2.8 {INR} [facility] Prothrombin Time w/INRon INR Coag (PPP) [Relative time] 2.8 {INR} Normal [facility] Comment on above: Order Comment: 411-2 Performed By: #### L 300.3900 ####[facility] [address] [place], [address] PT Coag (PPP) [Time] 29.7 s High 11.7-14.9 [facility] Comment on above: Order Comment: 411-2 Performed By: #### L 300.3900 ####[facility] [address] [place], [address] Prothrombin timeOrdered By: Carlos Cavazos on 06-23-2024 PT Coag (PPP) [Time] 29.7 s High 11.7-14.9 [facility] [employer] normalized rat io (INR) calculationOrdered By: Kvng Crisostomo on 06-19-2024 INR Coag (Bld) [Relative time] 2.6 {INR} [facility] Prothrombin Time w/INRon INR Coag (PPP) [Relative time] 2.6 {INR} Normal [facility] Comment on above: Order Comment: 411.2 Performed By: #### L 300.3900 ####[facility] [address] [place], [address] PT Coag (PPP) [Time] 28.6 s High 11.7-14.9 [facility] Comment on above: Order Comment: 411.2 Performed By: #### L 300.3900 ####[facility] [address] [place], [address] Prothrombin timeOrdered By: Kvng Crisostomo on 06-19-2024 PT Coag (PPP) [Time] 28.6 s High 11.7-14.9 [facility] [employer] normalized rat io (INR) calculationOrdered By: Kvng Crsiostomo on 06-16-2024 INR Coag (Bld) [Relative time] 2.5 {INR} [facility] Prothrombin Time w/INRon INR Coag (PPP) [Relative time] 2.5 {INR} Normal [facility] Comment on above: Order Comment: 411.2 Performed By: #### L 300.3900 ####[facility] [address] [place], [address] PT Coag (PPP) [Time] 27.3 s High 11.7-14.9 [facility] Comment on above: Order Comment: 411.2 Performed By: #### L 300.3900 ####[facility] [address] [place], [address] Prothrombin timeOrdered By: Kvng Crisostomo on 06-16-2024 PT Coag (PPP) [Time] 27.3 s High 11.7-14.9 [facility] [employer] normalized rat io (INR) calculationOrdered By: Kvng Crisostomo on 06-12-2024 INR Coag (Bld) [Relative time] 2.1 {INR} [facility] Prothrombin Time w/INRon INR Coag (PPP) [Relative time] 2.1 {INR} Normal [facility] Comment on above: Order Comment: 411.2 Performed By: #### L 300.3900 ####[facility] [address] [place], [address] PT Coag (PPP) [Time] 24.0 s High 11.7-14.9 [facility] Comment on above: Order Comment: 411.2 Performed By: #### L 300.3900 ####[facility] [address] [place], [address] Prothrombin timeOrdered By: Kvng Crisostomo on 06-12-2024 PT Coag (PPP) [Time] 24.0 s High 11.7-14.9 [facility] [employer] normalized rat io (INR) calculationOrdered By: Carlos Cavazos on 06-09-2024 INR Coag (Bld) [Relative time] 1.5 {INR} [facility] Prothrombin Time w/INRon INR Coag (PPP) [Relative time] 1.5 {INR} Normal [facility] Comment on above: Order Comment: 411-2 Performed By: #### L 300.3900 ####[facility] [address] [place], [address] PT Coag (PPP) [Time] 18.0 s High 11.7-14.9 [facility] Comment on above: Order Comment: 411-2 Performed By: #### L 300.3900 ####[facility] [address] [place], [address] Prothrombin timeOrdered By: Carlos Cavazos on 06-09-2024 PT Coag (PPP) [Time] 18.0 s High 11.7-14.9 [facility] [employer] normalized rat io (INR) calculationOrdered By: Kvng Crisostomo on 06-05-2024 INR Coag (Bld) [Relative time] 2.8 {INR} [facility] Prothrombin Time w/INRon INR Coag (PPP) [Relative time] 2.8 {INR} Normal [facility] Comment on above: Order Comment: 411.2 Performed By: #### L 300.3900 ####[facility] [address] [place], [address] PT Coag (PPP) [Time] 30.3 s High 11.7-14.9 [facility] Comment on above: Order Comment: 411.2 Performed By: #### L 300.3900 ####[facility] [address] [place], [address] Prothrombin timeOrdered By: Kvng Crisostomo on 06-05-2024 PT Coag (PPP) [Time] 30.3 s High 11.7-14.9 [facility] [employer] normalized rat io (INR) calculationOrdered By: Kvng Crisostomo on 06-02-2024 INR Coag (Bld) [Relative time] 2.6 {INR} [facility] Prothrombin Time w/INRon INR Coag (PPP) [Relative time] 2.6 {INR} Normal [facility] Comment on above: Order Comment: 411.2 Performed By: #### L 300.3900 ####[facility] [address] [place], [address] PT Coag (PPP) [Time] 28.6 s High 11.7-14.9 [facility] Comment on above: Order Comment: 411.2 Performed By: #### L 300.3900 ####[facility] [address] [facility] [address] Prothrombin timeOrdered By: Kvng Crisostomo on 06-02-2024 PT Coag (PPP) [Time] 28.6 s High 11.7-14.9 [facility] [employer] normalized rat io (INR) calculationOrdered By: Kvng Crisostomo on 05-29-2024 INR Coag (Bld) [Relative time] 2.5 {INR} [facility] Prothrombin Time w/INRon INR Coag (PPP) [Relative time] 2.5 {INR} Normal [facility] Comment on above: Order Comment: 411.2 Performed By: #### L 300.3900 ####[facility] [address] [place], [address] PT Coag (PPP) [Time] 27.7 s High 11.7-14.9 [facility] Comment on above: Order Comment: 411.2 Performed By: #### L 300.3900 ####[facility] [address] [place], [address] Prothrombin timeOrdered By: Kvng Crisostomo on 05-29-2024 PT Coag (PPP) [Time] 27.7 s High 11.7-14.9 [facility] [employer] normalized rat io (INR) calculationOrdered By: Carlos Cavazos on 05-26-2024 INR Coag (Bld) [Relative time] 2.2 {INR} [facility] Prothrombin Time w/INRon INR Coag (PPP) [Relative time] 2.2 {INR} Normal [facility] Comment on above: Order Comment: 411-2 Performed By: #### L 300.3900 ####[facility] [address] [place], [place], [phone] PT Coag (PPP) [Time] 24.5 s High 11.7-14.9 [facility] Comment on above: Order Comment: 411-2 Performed By: #### L 300.3900 ####[facility] [address] [place], [address] Prothrombin timeOrdered By: Carlos Cavazos on 05-26-2024 PT Coag (PPP) [Time] 24.5 s High 11.7-14.9 [facility] normalized rat io (INR) calculationOrdered By: Kvgn Crisostomo on 05-22-2024 INR Coag (Bld) [Relative time] 2.8 {INR} [facility] Prothrombin Time w/INRon INR Coag (PPP) [Relative time] 2.8 {INR} Normal [facility] Comment on above: Order Comment: 411.2 Performed By: #### L 300.3900 ####[facility] [address] [place], [place], [phone] PT Coag (PPP) [Time] 30.3 s High 11.7-14.9 [facility] Comment on above: Order Comment: 411.2 Performed By: #### L 300.3900 ####[facility] [address] [place], [address] Prothrombin timeOrdered By: Kvng Crisostomo on 05-22-2024 PT Coag (PPP) [Time] 30.3 s High 11.7-14.9 [facility] normalized rat io (INR) calculationOrdered By: Kvng Crisostomo on 05-20-2024 INR Coag (Bld) [Relative time] 4.0 {INR} High [facility] Comment on above: CRITICAL VALUE CASEY D TO CUEZFWMRC68/14/25 08 Diana Srinivasan.RESULTS READ BACK BY SAME. Prothrombin Time w/INRon INR Coag (PPP) [Relative time] 4.0 {INR} Invalid Interpretation Code [facility] Comment on above: Order Comment: 411.2 Result Comment: CRIT ICAL VALUE CALLED TO [id number]/14/25 [facility] Diana Mattson.RESULTS READ BACK BY SAME. Performed By: #### L 300.3900 ####[facility] [address] [place], [place], [phone] PT Coag (PPP) [Time] 39.9 s High 11.7-14.9 [facility] Comment on above: Order Comment: 411.2 Performed By: #### L 300.3900 ####[facility] [address] [place], [place], [phone] Prothrombin timeOrdered By: Kvng Crisostomo on 05-20-2024 PT Coag (PPP) [Time] 39.9 s High 11.7-14.9 [facility] [employer] normalized rat io (INR) calculationOrdered By: Kvng Crisostomo on 05-19-2024 INR Coag (Bld) [Relative time] 3.4 {INR} [facility] Prothrombin Time w/INRon INR Coag (PPP) [Relative time] 3.4 {INR} Normal [facility] Comment on above: Order Comment: 411.2 Performed By: #### L 300.3900 ####[facility] [address] [place], [place], [phone] PT Coag (PPP) [Time] 35.4 s High 11.7-14.9 [facility] Comment on above: Order Comment: 411.2 Performed By: #### L 300.3900 ####[facility] [address] [place], [place], [phone] Prothrombin timeOrdered By: Kvng Crisostomo on 05-19-2024 PT Coag (PPP) [Time] 35.4 s High 11.7-14.9 [facility] normalized rat io (INR) calculationOrdered By: Kvng Crisostomo on 05-15-2024 INR Coag (Bld) [Relative time] 2.6 {INR} [facility] Prothrombin Time w/INRon INR Coag (PPP) [Relative time] 2.6 {INR} Normal [facility] Comment on above: Order Comment: 411.2 Performed By: #### L 300.3900 ####[facility] [address] [place], [place], [phone] PT Coag (PPP) [Time] 28.7 s High 11.7-14.9 [facility] Comment on above: Order Comment: 411.2 Performed By: #### L 300.3900 ####[facility] [address], [address] Prothrombin timeOrdered By: Kvng Crisostomo on 05-15-2024 PT Coag (PPP) [Time] 28.7 s High 11.7-14.9 [facility] normalized rat io (INR) calculationOrdered By: Carlos Cavazos on 05-12-2024 INR Coag (Bld) [Relative time] 2.1 {INR} [facility] Prothrombin Time w/INRon INR Coag (PPP) [Relative time] 2.1 {INR} Normal [facility] Comment on above: Order Comment: 411-2 Performed By: #### L 300.3900 ####[facility] [address] [place], [address] PT Coag (PPP) [Time] 24.1 s High 11.7-14.9 [facility] Comment on above: Order Comment: 411-2 Performed By: #### L 300.3900 ####[facility] [address] [place], [place], [phone] Prothrombin timeOrdered By: Carlos Cavazos on 05-12-2024 PT Coag (PPP) [Time] 24.1 s High 11.7-14.9 [facility] normalized rat io (INR) calculationOrdered By: Kvng Crisostomo on 05-09-2024 INR Coag (Bld) [Relative time] 3.4 {INR} [facility] Prothrombin Time w/INRon INR Coag (PPP) [Relative time] 3.4 {INR} Normal [facility] Comment on above: Order Comment: 411.2 Performed By: #### L 300.3900 ####[facility] [address] [place], [place], [phone] PT Coag (PPP) [Time] 35.4 s High 11.7-14.9 [facility] Comment on above: Order Comment: 411.2 Performed By: #### L 300.3900 ####[facility] [address] [place], [place], [phone] Prothrombin timeOrdered By: Kvng Crisostomo on 05-09-2024 PT Coag (PPP) [Time] 35.4 s High 11.7-14.9 [facility] normalized rat io (INR) calculationOrdered By: Kvng Crissotomo on 05-08-2024 INR Coag (Bld) [Relative time] 4.1 {INR} High [facility] Comment on above: CRITICAL VALUE CASEY D TO [facility]BY [facility]05/08/24 0950 Karen Jamison.RESULTS READ BACK BY SAME. Prothrombin Time w/INRon INR Coag (PPP) [Relative time] 4.1 {INR} Invalid Interpretation Code [facility] Comment on above: Order Comment: 411.2 Result Comment: CRIT ICAL VALUE CALLED TO COBY HAIRSTONNJ05/08/24 0950 Karen Jamison.RESULTS READ BACK BY SAME. Performed By: #### L 300.3900 ####[facility] [address] [place], [address] PT Coag (PPP) [Time] 40.8 s High 11.7-14.9 [facility] Comment on above: Order Comment: 411.2 Performed By: #### L 300.3900 ####[facility] [address] [place], [address] Prothrombin timeOrdered By: Babbaljeet Andressa on 05-08-2024 PT Coag (PPP) [Time] 40.8 s High 11.7-14.9 [facility] normalized rat io (INR) calculationOrdered By: Babbaljeet Crisostomo on 05-05-2024 INR Coag (Bld) [Relative time] 3.2 {INR} [facility] Prothrombin Time w/INRon INR Coag (PPP) [Relative time] 3.2 {INR} Normal [facility] Comment on above: Order Comment: 411.2 Performed By: #### L 300.3900 ####[facility] [address] [place], [address] PT Coag (PPP) [Time] 32.5 s High 11.7-14.9 [facility] Comment on above: Order Comment: 411.2 Performed By: #### L 300.3900 ####[facility] [address] [place], [address] Prothrombin timeOrdered By: Babbaljeet Crisostomo on 05-05-2024 PT Coag (PPP) [Time] 32.5 s High 11.7-14.9 [facility] normalized rat io (INR) calculationOrdered By: Babbaljeet Crisostomo on 05-01-2024 INR Coag (Bld) [Relative time] 3.1 {INR} [facility] Prothrombin Time w/INRon INR Coag (PPP) [Relative time] 3.1 {INR} Normal [facility] Comment on above: Order Comment: 411.2 Performed By: #### L 300.3900 ####[facility] [address] [place], [address] PT Coag (PPP) [Time] 31.9 s High 11.7-14.9 [facility] Comment on above: Order Comment: 411.2 Performed By: #### L 300.3900 ####[facility] [address] [place], [address] Prothrombin timeOrdered By: Kvng Crisostomo on 05-01-2024 PT Coag (PPP) [Time] 31.9 s High 11.7-14.9 [facility] normalized rat io (INR) calculationOrdered By: Carlos Cavazos on 04-28-2024 INR Coag (Bld) [Relative time] 2.6 {INR} [facility] Prothrombin Time w/INRon INR Coag (PPP) [Relative time] 2.6 {INR} Normal [facility] Comment on above: Order Comment: 411-2 Performed By: #### L 300.3900 ####[facility] [address] [place], [address] PT Coag (PPP) [Time] 27.3 s High 11.7-14.9 [facility] Comment on above: Order Comment: 411-2 Performed By: #### L 300.3900 ####[facility] [address] [place], [address] Prothrombin timeOrdered By: Carlos Cavazos on 04-28-2024 PT Coag (PPP) [Time] 27.3 s High 11.7-14.9 [facility] normalized rat io (INR) calculationOrdered By: Kvng Crisostomo on 04-24-2024 INR Coag (Bld) [Relative time] 3.6 {INR} [facility] Prothrombin Time w/INRon INR Coag (PPP) [Relative time] 3.6 {INR} Normal [facility] Comment on above: Order Comment: 411.2 Performed By: #### L 300.3900 ####[facility] [address] [place], [address] PT Coag (PPP) [Time] 35.6 s High 11.7-14.9 [facility] Comment on above: Order Comment: 411.2 Performed By: #### L 300.3900 ####[facility] [address] [place], [address] Prothrombin timeOrdered By: Kvng Crisostomo on 04-24-2024 PT Coag (PPP) [Time] 35.6 s High 11.7-14.9 [facility] [employer] normalized rat io (INR) calculationOrdered By: Carlos Cavazos on 04-21-2024 INR Coag (Bld) [Relative time] 2.8 {INR} [facility] Prothrombin Time w/INRon INR Coag (PPP) [Relative time] 2.8 {INR} Normal [facility] Comment on above: Order Comment: 411-2 Performed By: #### L 300.3900 ####[facility] [address] [place], [address] PT Coag (PPP) [Time] 29.4 s High 11.7-14.9 [facility] Comment on above: Order Comment: 411-2 Performed By: #### L 300.3900 ####[facility] [address] [place], [address] Prothrombin timeOrdered By: Carlos Cavazos on 04-21-2024 PT Coag (PPP) [Time] 29.4 s High 11.7-14.9 [facility] normalized rat io (INR) calculationOrdered By: Kvng Crisostomo on 04-17-2024 INR Coag (Bld) [Relative time] 3.1 {INR} [facility] Prothrombin Time w/INRon INR Coag (PPP) [Relative time] 3.1 {INR} Normal [facility] Comment on above: Order Comment: 411.2 Performed By: #### L 300.3900 ####[facility] [address] [place], [place], [phone](455) Prothrombin timeOrdered By: Kvng Crisostomo on 04-17-2024 PT Coag (PPP) [Time] 31.3 s High 11.7-14.9 [facility] Comment on above: Order Comment: 411.2 Performed By: #### L 300.3900 ####[facility] [address] [place], [place], [phone](025) International normalized rat io (INR) calculationOrdered By: Kvng Crisostomo on 04-14-2024 INR Coag (Bld) [Relative time] 3.3 {INR} [facility] Prothrombin Time w/INRon INR Coag (PPP) [Relative time] 3.3 {INR} Normal [facility] Comment on above: Order Comment: 411.2 Performed By: #### L 300.3900 ####[facility] [address] [place], [place], [id number](284) PT Coag (PPP) [Time] 33.2 s High 11.7-14.9 [facility] Comment on above: Order Comment: 411.2 Performed By: #### L 300.3900 ####[facility] [address] [place], [place], [phone](063) Prothrombin timeOrdered By: Kvng Crisostomo on 04-14-2024 PT Coag (PPP) [Time] 33.2 s High 11.7-14.9 [facility] normalized rat io (INR) calculationOrdered By: Kvng Crisostomo on 04-10-2024 INR Coag (Bld) [Relative time] 2.8 {INR} [facility] Prothrombin Time w/INRon INR Coag (PPP) [Relative time] 2.8 {INR} Normal [facility] Comment on above: Order Comment: 411.2 Performed By: #### L 300.3900 ####[facility] [address] [place], [address] PT Coag (PPP) [Time] 29.2 s High 11.7-14.9 [facility] Comment on above: Order Comment: 411.2 Performed By: #### L 300.3900 ####[facility] [address] [place], [address] Prothrombin timeOrdered By: Kvng Crisostomo on 04-10-2024 PT Coag (PPP) [Time] 29.2 s High 11.7-14.9 [facility] normalized rat io (INR) calculationOrdered By: Carlos Cavazos on 04-07-2024 INR Coag (Bld) [Relative time] 2.7 {INR} [facility] Prothrombin Time w/INRon INR Coag (PPP) [Relative time] 2.7 {INR} Normal [facility] Comment on above: Order Comment: 411-2 Performed By: #### L 300.3900 ####[facility] [address] [place], [address] PT Coag (PPP) [Time] 28.1 s High 11.7-14.9 [facility] Comment on above: Order Comment: 411-2 Performed By: #### L 300.3900 ####[facility] [address] [place], [address] Prothrombin timeOrdered By: Carlos Cavazos on 04-07-2024 PT Coag (PPP) [Time] 28.1 s High 11.7-14.9 [facility] normalized rat io (INR) calculationOrdered By: Kvng Crisostomo on 04-04-2024 INR Coag (Bld) [Relative time] 2.8 {INR} [facility] Prothrombin Time w/INRon INR Coag (PPP) [Relative time] 2.8 {INR} Normal [facility] Comment on above: Order Comment: 411.2 Performed By: #### L 300.3900 ####[facility] [address] [place], [address] PT Coag (PPP) [Time] 28.9 s High 11.7-14.9 [facility] Comment on above: Order Comment: 411.2 Performed By: #### L 300.3900 ####[facility] [address] [place], [address] Prothrombin timeOrdered By: Kvng Crisostomo on 04-04-2024 PT Coag (PPP) [Time] 28.9 s High 11.7-14.9 [facility] normalized rat io (INR) calculationOrdered By: Carlos Cavazos on 03-31-2024 INR Coag (Bld) [Relative time] 2.6 {INR} [facility] Prothrombin Time w/INRon INR Coag (PPP) [Relative time] 2.6 {INR} Normal [facility] Comment on above: Order Comment: 411-2 Performed By: #### L 300.3900 ####[facility] [address] [place], [address] PT Coag (PPP) [Time] 27.3 s High 11.7-14.9 [facility] Comment on above: Order Comment: 411-2 Performed By: #### L 300.3900 ####[facility] [address] [place], [address] Prothrombin timeOrdered By: Carlos Cavazos on 03-31-2024 PT Coag (PPP) [Time] 27.3 s High 11.7-14.9 [facility] normalized rat io (INR) calculationOrdered By: [employer] on 03-27-2024 INR Coag (Bld) [Relative time] 2.2 {INR} [facility] Prothrombin Time w/INRon INR Coag (PPP) [Relative time] 2.2 {INR} Normal [facility] Comment on above: Order Comment: 411.2 Performed By: #### L 300.3900 ####[facility] [address] [place], [address] PT Coag (PPP) [Time] 24.3 s High 11.7-14.9 [facility] Comment on above: Order Comment: 411.2 Performed By: #### L 300.3900 ####[facility] [address] [place], [address] Prothrombin timeOrdered By: [employer] [facility] on 03-27-2024 PT Coag (PPP) [Time] 24.3 s High 11.7-14.9 [facility] normalized rat io (INR) calculationOrdered By: Kvng Crisostomo on 03-24-2024 INR Coag (Bld) [Relative time] 1.8 {INR} [facility] Prothrombin Time w/INRon INR Coag (PPP) [Relative time] 1.8 {INR} Normal [facility] Comment on above: Order Comment: 411.2 Performed By: #### L 300.3900 ####[facility] [address] [place], [address] PT Coag (PPP) [Time] 20.7 s High 11.7-14.9 [facility] Comment on above: Order Comment: 411.2 Performed By: #### L 300.3900 ####[facility] [address] [place], [address] Prothrombin timeOrdered By: Kvng Crisostomo on 03-24-2024 PT Coag (PPP) [Time] 20.7 s High 11.7-14.9 [facility] normalized rat io (INR) calculationOrdered By: [employer] [facility] on 03-20-2024 INR Coag (Bld) [Relative time] 1.8 {INR} [facility] Prothrombin Time w/INRon INR Coag (PPP) [Relative time] 1.8 {INR} Normal [facility] Comment on above: Order Comment: 411.2 Performed By: #### L 300.3900 ####[facility] [address] [place], [address] PT Coag (PPP) [Time] 20.9 s High 11.7-14.9 [facility] Comment on above: Order Comment: 411.2 Performed By: #### L 300.3900 ####[facility] [address] [place], [address] Prothrombin timeOrdered By: [facility] on 03-20-2024 PT Coag (PPP) [Time] 20.9 s High 11.7-14.9 [facility] normalized rat io (INR) calculationOrdered By: Kvng Crisostomo on 03-19-2024 INR Coag (Bld) [Relative time] 2.4 {INR} [facility] Prothrombin Time w/INRon INR Coag (PPP) [Relative time] 2.4 {INR} Normal [facility] Comment on above: Order Comment: 411.2 Performed By: #### L 300.3900 ####[facility] [address] [place], [address] PT Coag (PPP) [Time] 26.4 s High 11.7-14.9 [facility] Comment on above: Order Comment: 411.2 Performed By: #### L 300.3900 ####[facility] [address] [place], [address] Prothrombin timeOrdered By: Kvng Crisostomo on 03-19-2024 PT Coag (PPP) [Time] 26.4 s High 11.7-14.9 [facility] normalized rat io (INR) calculationOrdered By: [employer] [facility] on 03-18-2024 INR Coag (Bld) [Relative time] 3.2 {INR} [facility] Prothrombin timeOrdered By: [facility] on 03-18-2024 PT Coag (PPP) [Time] 32.3 s High 11.7-14.9 [facility] normalized rat io (INR) calculationOrdered By: [employer] [facility] on 03-17-2024 INR Coag (Bld) [Relative time] 3.6 {INR} [facility] Prothrombin timeOrdered By: [facility] [employer] [facility] on 03-17-2024 PT Coag (PPP) [Time] 35.7 s High 11.7-14.9 [facility] normalized rat io (INR) calculationOrdered By: Carlos Cavazos on 03-14-2024 INR Coag (Bld) [Relative time] 3.5 {INR} [facility] Prothrombin timeOrdered By: Carlos Cavazos on 03-14-2024 PT Coag (PPP) [Time] 35.0 s High 11.7-14.9 [facility] normalized rat io (INR) calculationOrdered By: [employer] [facility] on 03-13-2024 INR Coag (Bld) [Relative time] 3.2 {INR} [facility] Prothrombin timeOrdered By: [facility] on 03-13-2024 PT Coag (PPP) [Time] 32.2 s High 11.7-14.9 [facility] Office Visiton 09-13-2023 Follow-up visit [id number] GurpreetTamie 1950 [address] Provider Department Center 09/13/2023 [id number]-SRHONVREBECCA [facility]CK [facility] None Family History Problem Relation Age of Onset Heart disease Father Cancer Mother Family Status - Relation Status Age at Father Mother Level of Service:21972 IN OFFICE/OUTPATIENT ESTABLISHED MOD MDM 30 MIN Reason for Visit and Comments: left flank pain [Other] - 8/10 pain when touched Normal [facility] Progress Noteon 09-13-2023 Progress Note Walt [...] adult (CMS/HCC) (HCC) Kidney stone Neuropathy [employer] (ventriculoperitoneal) shunt status Past Surgical History: Procedure [...] 03/02/2022 CR (more content not included)... Normal [facility] CT ABDOMEN PELVIS WO IV CONT Kelly 09-07-2023 CT ABDOMEN PELVIS WO IV CONTRAST Patient Name: ANDREW SIFUENTES : 1950 [id number] Exam Date/Time: 09/06/2023 18:14 Procedure: CT ABDOMEN [...] a kidney stone; pt has a hernia 36on 08-29-2023 36 Lm on daughters vm t o advise them to call the number for the crm campaign manager to get clarification, and to call back with further questions [place] [address]on 08-27-2023 36 Yes, they will need to call the number given to them. 36 Please advise [address] 08-21-2023 36 Name of caller: Zion holt Contact phone number: [phone] Relationship to Patient: patient Provider: MD Quinn Practice: [facility] Chief Complaint/Reason for [...] to reach out to call Maury Cedeño Voice Coach at [facility] [phone] to get clarifications. TEA did reach back out to [facility] and advised and provider Maury's #. Please advise Best time of day caller can be reached: Any Patient advised that office/PCP has 24-48 business hours to return their call: N/A Normal [facility] Laboratory - CoagulationOrde red By: Carlos Cavazos on 08-21-2023 INR Coag (Bld) [Relative time] 2.7 {INR} [facility] PT Coag (PPP) [Time] 28.9 s 11.7-14.9 [facility] Office Visiton 08-13-2023 Follow-up visit [id number] Tamie Sifuentes cheng Gonzalez 1950 M [address] Provider Department Center 08/13/2023 [id number]-RYBNMEREBECCA [facility]CK [facility] None Family History Problem Relation Age of Onset Heart disease Father Cancer Mother Family Status - Relation Status Age at Father Mother Level of Service:09661 IN OFFICE/OUTPATIENT NEW MODERATE MDM 45 MINUTES Reason for Visit and Comments: New Patient [542] - Bilateral flank pain, hx of kidney stones Nephrolithiasis [880820] Normal [facility] Progress Noteon 08-13-2023 Progress Note Walt [...] adult (CMS/HCC) (HCC) Kidney stone Neuropathy [employer] (ventriculoperitoneal) shunt status Past Surgical History: Past [...] CT ab (more content not included)... Normal [facility] No Panel InformationOrdered By: Carlos Cavazos on 08-03-2023 Levetiracetam (Keppra) Level 32.4 ug/mL 10.0-40.0 [facility] Comment on above: Performed at: [address] [id number] Director: Alpesh Vázquez MD, Phone: [phone] Basophil percentageOrdered B y: Carlos Cavazos on 07-20-2023 Chloride [Moles/Vol] 106 mmol/L 98-107 [facility] Glucose [Mass/Vol] 98 mg/dL 74-106 [facility] Hemoglobin (Bld) [Mass/Vol] 12.5 g/dL 13.0-16.5 [facility] Potassium [Moles/Vol] 4.3 mmol/L 3.5-5.1 [facility] Sodium [Moles/Vol] 135 mmol/L 136-145 [facility] WBC (Bld) [#/Vol] 13.0 10*3/uL 4.4-11.0 [facility] Determination of erythrocyte mean corpuscular volume (MCV)Ordered By: Carlos Cavazos on 07-20-2023 MCV (RBC) [Entitic vol] 86.2 fL 80-94 [facility] Erythrocyte distribution wid th ratioOrdered By: Carlos Cavazos on 07-20-2023 Erythrocyte distribution width (RBC) [Ratio] 15.3 % 11.6-14.6 [facility] Erythrocyte distribution wid th standard deviationOrdered By: Carlos Cavazos on 07-20-2023 Erythrocyte distribution width (RBC) [Entitic vol] 48.1 fL 35.1-43.9 [facility] Hematocrit Auto (Bld) [Volum e fraction]Ordered By: Carlos Cavazos on 07-20-2023 Hematocrit (Bld) [Volume fraction] 39.9 % 40-54 [facility] Laboratory - Chemistry and C hemistry - challengeOrdered By: Carlos Cavazos on 07-20-2023 CO2 [Moles/Vol] 24.0 mmol/L 21.0-32.0 [facility] Urea nitrogen/Creatinine [Mass ratio] 24.6 mg/mg 10-20 [facility] Laboratory - Hematology and Cell countsOrdered By: Carlos Cavazos on 07-20-2023 MCH (RBC) [Entitic mass] 27.0 pg 27.0-32.0 [facility] MCHC (RBC) [Mass/Vol] 31.3 g/dL 32-36 [facility] Platelet mean volume (Bld) [Entitic vol] 10.7 fL 6.2-12.0 [facility] Platelets (Bld) [#/Vol] 260 10*3/uL 150-450 [facility] No Panel InformationOrdered By: Carlos Cavazos on 03-15-2024 Estimated GFR (MDRD) Amer 114 mL/min >60 [facility] Comment on above: GFR Calc Estimated GFR (MDRD) Non-Af Amer 94 mL/min >60 [facility] Comment on above: Non- GFR Calc RBC Auto (Bld) [#/Vol]Ordere d By: Carlos Cavazos on 07-20-2023 RBC (Bld) [#/Vol] 4.63 10*6/uL 4.6-6.2 [facility] Serum or plasma calcium oral urement (mass/volume)Ordered By: Carlos Cavazos on 07-20-2023 Calcium [Mass/Vol] 8.6 mg/dL 8.5-10.1 [facility] Serum or plasma creatinine m easurement (mass/volume)Ordered By: Carlos Cavazos on 07-20-2023 Creatinine [Mass/Vol] 0.85 mg/dL 0.70-1.30 [facility] Comment on above: The validity of the calculated GFR & GFRAA in patients over 70 years has not been determined. Clinical correlation is essential. Serum or plasma urea nitroge n measurement (mass/volume)Ordered By: Carlos Cavazos on 07-20-2023 Urea nitrogen [Mass/Vol] 21 mg/dL 7-18 [facility] Thin prep Papanicolaou smear with manual screeningOrdered By: Carlos Cavazos on 07-20-2023 Thin prep Papanicolaou smear with manual screening 5 5-15 [facility] Basophil percentageOrdered B y: Carlos Cavazos on 07-18-2023 Chloride [Moles/Vol] 102 mmol/L 98-107 [facility] Glucose [Mass/Vol] 96 mg/dL 74-106 [facility] Hemoglobin (Bld) [Mass/Vol] 12.3 g/dL 13.0-16.5 [facility] Potassium [Moles/Vol] 4.2 mmol/L 3.5-5.1 [facility] Sodium [Moles/Vol] 136 mmol/L 136-145 [facility] WBC (Bld) [#/Vol] 14.7 10*3/uL 4.4-11.0 [facility] Determination of erythrocyte mean corpuscular volume (MCV)Ordered By: Carlos Cavazos on 07-18-2023 MCV (RBC) [Entitic vol] 85.4 fL 80-94 [facility] Erythrocyte distribution wid th ratioOrdered By: Carlos Cavazos on 07-18-2023 Erythrocyte distribution width (RBC) [Ratio] 15.1 % 11.6-14.6 [facility] Erythrocyte distribution wid th standard deviationOrdered By: Carlos Cavazos on 07-18-2023 Erythrocyte distribution width (RBC) [Entitic vol] 47.3 fL 35.1-43.9 [facility] Hematocrit Auto (Bld) [Volum e fraction]Ordered By: Carlos Cavazos on 07-18-2023 Hematocrit (Bld) [Volume fraction] 39.3 % 40-54 [facility] Laboratory - Chemistry and C hemistry - challengeOrdered By: Carlos Cavazos on 07-18-2023 CO2 [Moles/Vol] 27.0 mmol/L 21.0-32.0 [facility] Urea nitrogen/Creatinine [Mass ratio] 24.4 mg/mg 10-20 [facility] Laboratory - Hematology and Cell countsOrdered By: Carlos Cavazos on 07-18-2023 MCH (RBC) [Entitic mass] 26.7 pg 27.0-32.0 [facility] MCHC (RBC) [Mass/Vol] 31.3 g/dL 32-36 [facility] Platelet mean volume (Bld) [Entitic vol] 10.3 fL 6.2-12.0 [facility] Platelets (Bld) [#/Vol] 288 10*3/uL 150-450 [facility] No Panel InformationOrdered By: Carlos Cavazos on 07-18-2023 Estimated GFR (MDRD) Amer 113 mL/min >60 [facility] Comment on above: GFR Calc Estimated GFR (MDRD) Non-Af Amer 93 mL/min >60 [facility] Comment on above: Non- GFR Calc RBC Auto (Bld) [#/Vol]Ordere d By: Carlos Cavazos on 07-18-2023 RBC (Bld) [#/Vol] 4.60 10*6/uL 4.6-6.2 [facility] Serum or plasma calcium oral urement (mass/volume)Ordered By: Carlos Cavazos on 07-18-2023 Calcium [Mass/Vol] 8.9 mg/dL 8.5-10.1 [facility] Serum or plasma creatinine m easurement (mass/volume)Ordered By: Carlos Cavazos on 07-18-2023 Creatinine [Mass/Vol] 0.86 mg/dL 0.70-1.30 [facility] Comment on above: The validity of the calculated GFR & GFRAA in patients over 70 years has not been determined. Clinical correlation is essential. Serum or plasma urea nitroge n measurement (mass/volume)Ordered By: Carlos Cavazos on 07-18-2023 Urea nitrogen [Mass/Vol] 21 mg/dL 7-18 [facility] Thin prep Papanicolaou smear with manual screeningOrdered By: Carlos Cavazos on 07-18-2023 Thin prep Papanicolaou smear with manual screening 7 5-15 [facility] Basophil percentageOrdered B y: Carlos Cavazos on 07-17-2023 Basophil percentage 0-5 SEEN /hpf 0-5 [facility] Bilirubin Test strip Ql (U)O rdered By: Carlos Cavazos on 07-17-2023 Bilirubin Ql (U) Negative Negative [facility] Calcium oxalate crystals det ection in urine sediment by light microscopyOrdered By: Carlos Cavazos on 07-17-2023 Calcium oxalate crystals LM Ql (Urine sed) 1+ /hpf [facility] Culture, urineOrdered By: Sharif Crouch on 07-17-2023 Bacteria identified Cx Nom (U) Positive [facility] Ketones Test strip Ql (U)Ord ered By: Carlos Cavazos on 07-17-2023 Ketones Ql (U) Negative Negative [facility] Mucus LM Ql (Urine sed)Order ed By: Carlos Cavazos on 07-17-2023 Mucus Ql (Urine sed) 0 SEEN /hpf [facility] Nitrite Test strip Ql (U)Ord ered By: Carlos Cavazos on 07-17-2023 Nitrite Ql (U) Negative Negative [facility] No Panel InformationOrdered By: Carlos Cavazos on 07-17-2023 Urine RBC 0 SEEN /hpf 0-5 [facility] Protein Test strip Ql (U)Ord ered By: Carlos Cavazos on 07-17-2023 Protein Ql (U) Negative Negative [facility] Squamous epithelial cells de tection in urine sediment by light microscopyOrdered By: Carlos Cavazos on 07-17-2023 Epithelial cells.squamous LM Ql (Urine sed) 0-5 SEEN /hpf 0-5 [facility] Urine blood detectionOrdered By: Carlos Cavazos on 07-17-2023 RBC Ql (U) Negative Negative [facility] Urine clarityOrdered By: Ted Cavazos on 07-17-2023 Clarity (U) Clear Clear [facility] Urine color determinationOrd ered By: Carlos Cavazos on 07-17-2023 Color (U) Yellow Yellow [facility] Urine glucose detectionOrder ed By: Carlos Cavazos on 07-17-2023 Glucose Ql (U) Normal mg/dl Normal [facility] Urine leukocyte esterase det ection by dipstickOrdered By: Carlos Cavazos on 07-17-2023 Leukocyte esterase Test strip Ql (U) 25 /ul Negative [facility] Urine pHOrdered By: Carlos flores on 07-17-2023 pH (U) 6.0 [pH] 5.0 - 8.0 [facility] Urine sediment bacteria coun t by microscopy (number/high power field)Ordered By: Carlos Cavazos on 07-17-2023 Bacteria LM.HPF (Urine sed) [#/Area] 0 /[HPF] None Seen [facility] Urine specific gravity measu rementOrdered By: Carlos Cavazos on 07-17-2023 Specific gravity (U) [Rel density] 1.020 1.002-1.030 [facility] Urine urobilinogen measureme ntOrdered By: Carlos Cavazos on 07-17-2023 Urobilinogen Ql (U) Normal mg/dl Normal [facility] Absolute lymphocyte countOrd ered By: Carlos Cavazos on 07-16-2023 Lymphocytes Auto (Unsp spec) [#/Vol] 6.02 10*3/uL 0.83-4.51 [facility] Automated lymphocyte count a s percentage of total leukocytesOrdered By: Carlos Cavazos on 07-16-2023 Lymphocytes/100 WBC Auto (Unsp spec) 49.1 % 19-41 [facility] Basophil percentageOrdered B y: Carlos Cavazos on 07-16-2023 Basophils/100 WBC (Bld) 0.6 % 0-1 [facility] Chloride [Moles/Vol] 105 mmol/L 98-107 [facility] Eosinophils/100 WBC (Bld) 2.0 % 0-5 [facility] Glucose [Mass/Vol] 93 mg/dL 74-106 [facility] Hemoglobin (Bld) [Mass/Vol] 12.1 g/dL 13.0-16.5 [facility] Monocytes/100 WBC (Bld) 5.3 % 0-10 [facility] Neutrophils (Bld) [#/Vol] 5.2 10*3/uL 2.0-7.7 [facility] Neutrophils/100 WBC (Bld) 42.8 % 47-70 [facility] Potassium [Moles/Vol] 4.3 mmol/L 3.5-5.1 [facility] Sodium [Moles/Vol] 138 mmol/L 136-145 [facility] WBC (Bld) [#/Vol] 12.3 10*3/uL 4.4-11.0 [facility] Blood manual differential co mment interpretation (narrative result)Ordered By: Carlos Cavazos on 07-16-2023 Manual differential comment Shemar (Bld) [Interp] SCANNED [facility] Determination of erythrocyte mean corpuscular volume (MCV)Ordered By: Carlos Cavazos on 07-16-2023 MCV (RBC) [Entitic vol] 86.8 fL 80-94 [facility] Erythrocyte distribution wid th ratioOrdered By: Carlos Cavazos on 07-16-2023 Erythrocyte distribution width (RBC) [Ratio] 15.3 % 11.6-14.6 [facility] Erythrocyte distribution wid th standard deviationOrdered By: Carlos Cavazos on 07-16-2023 Erythrocyte distribution width (RBC) [Entitic vol] 48.9 fL 35.1-43.9 [facility] Hematocrit Auto (Bld) [Volum e fraction]Ordered By: Carlos Cavazos on 07-16-2023 Hematocrit (Bld) [Volume fraction] 38.7 % 40-54 [facility] Immature granulocytes/100 WB C Auto (Bld)Ordered By: Carlos Cavazos on 07-16-2023 Immature granulocytes/100 WBC (Bld) 0.200 % 0.0-0.9 [facility] Comment on above: IG% - Immature Granu locytes (promyelocytes, myelocytes and metamyelocytes) > 1% indicates that a LEFT SHIFT is Present. Laboratory - Chemistry and C hemistry - challengeOrdered By: Carlos Cavazos on 07-16-2023 CO2 [Moles/Vol] 25.0 mmol/L 21.0-32.0 [facility] Urea nitrogen/Creatinine [Mass ratio] 21.0 mg/mg 10-20 [facility] Laboratory - CoagulationOrde red By: Carlos Cavazos on 07-16-2023 INR Coag (Bld) [Relative time] 2.4 {INR} [facility] PT Coag (PPP) [Time] 25.7 s 11.7-14.9 [facility] Laboratory - Hematology and Cell countsOrdered By: Carlos Cavazos on 07-16-2023 MCH (RBC) [Entitic mass] 27.1 pg 27.0-32.0 [facility] MCHC (RBC) [Mass/Vol] 31.3 g/dL 32-36 [facility] Nucleated RBC/100 WBC (Bld) [Ratio] 0 % 0-5 [facility] Platelet mean volume (Bld) [Entitic vol] 10.5 fL 6.2-12.0 [facility] Platelets (Bld) [#/Vol] 289 10*3/uL 150-450 [facility] No Panel InformationOrdered By: Carlos Cavazos on 07-16-2023 Estimated GFR (MDRD) Amer 106 mL/min >60 [facility] Comment on above: GFR Calc Estimated GFR (MDRD) Non-Af Amer 88 mL/min >60 [facility] Comment on above: Non- GFR Calc Reactive Lymphocytes 1+ [facility] RBC Auto (Bld) [#/Vol]Ordere d By: Carlos Cavazos on 07-16-2023 RBC (Bld) [#/Vol] 4.46 10*6/uL 4.6-6.2 [facility] Serum or plasma calcium oral urement (mass/volume)Ordered By: Carlos Cavazos on 07-16-2023 Calcium [Mass/Vol] 9.0 mg/dL 8.5-10.1 [facility] Serum or plasma creatinine m easurement (mass/volume)Ordered By: Carlos Cavazos on 07-16-2023 Creatinine [Mass/Vol] 0.90 mg/dL 0.70-1.30 [facility] Comment on above: The validity of the calculated GFR & GFRAA in patients over 70 years has not been determined. Clinical correlation is essential. Serum or plasma urea nitroge n measurement (mass/volume)Ordered By: Cralos Cavazos on 07-16-2023 Urea nitrogen [Mass/Vol] 19 mg/dL 7-18 [facility] Thin prep Papanicolaou smear with manual screeningOrdered By: Carlos Cavazos on 07-16-2023 Thin prep Papanicolaou smear with manual screening 8 5-15 [facility] Absolute lymphocyte countOrd ered By: Carlos Cavazos on 07-13-2023 Lymphocytes Auto (Unsp spec) [#/Vol] 5.44 10*3/uL 0.83-4.51 [facility] Automated lymphocyte count a s percentage of total leukocytesOrdered By: Carlos Cavazos on 07-13-2023 Lymphocytes/100 WBC Auto (Unsp spec) 47.3 % 19-41 [facility] Basophil percentageOrdered B y: Carlos Cavazos on 07-13-2023 Basophils/100 WBC (Bld) 0.4 % 0-1 [facility] Chloride [Moles/Vol] 107 mmol/L 98-107 [facility] Eosinophils/100 WBC (Bld) 1.7 % 0-5 [facility] Glucose [Mass/Vol] 96 mg/dL 74-106 [facility] Hemoglobin (Bld) [Mass/Vol] 13.5 g/dL 13.0-16.5 [facility] Monocytes/100 WBC (Bld) 4.3 % 0-10 [facility] Neutrophils (Bld) [#/Vol] 5.3 10*3/uL 2.0-7.7 [facility] Neutrophils/100 WBC (Bld) 46.0 % 47-70 [facility] Potassium [Moles/Vol] 4.0 mmol/L 3.5-5.1 [facility] Sodium [Moles/Vol] 139 mmol/L 136-145 [facility] WBC (Bld) [#/Vol] 11.5 10*3/uL 4.4-11.0 [facility] Determination of erythrocyte mean corpuscular volume (MCV)Ordered By: Carlos Cavazos on 07-13-2023 MCV (RBC) [Entitic vol] 86.1 fL 80-94 [facility] Erythrocyte distribution wid th ratioOrdered By: Carlos Cavazos on 07-13-2023 Erythrocyte distribution width (RBC) [Ratio] 15.2 % 11.6-14.6 [facility] Erythrocyte distribution wid th standard deviationOrdered By: Carlos Cavazos on 07-13-2023 Erythrocyte distribution width (RBC) [Entitic vol] 48.0 fL 35.1-43.9 [facility] Hematocrit Auto (Bld) [Volum e fraction]Ordered By: Carlos Cavazos on 07-13-2023 Hematocrit (Bld) [Volume fraction] 42.2 % 40-54 [facility] Immature granulocytes/100 WB C Auto (Bld)Ordered By: Carlos Cavazos on 07-13-2023 Immature granulocytes/100 WBC (Bld) 0.300 % 0.0-0.9 [facility] Comment on above: IG% - Immature Granu locytes (promyelocytes, myelocytes and metamyelocytes) > 1% indicates that a LEFT SHIFT is Present. Laboratory - Chemistry and C hemistry - challengeOrdered By: Carlos Cavazos on 07-13-2023 CO2 [Moles/Vol] 26.0 mmol/L 21.0-32.0 [facility] Urea nitrogen/Creatinine [Mass ratio] 21.8 mg/mg 10-20 [facility] Laboratory - Hematology and Cell countsOrdered By: Carlos Cavazos on 07-13-2023 MCH (RBC) [Entitic mass] 27.6 pg 27.0-32.0 [facility] MCHC (RBC) [Mass/Vol] 32.0 g/dL 32-36 [facility] Nucleated RBC/100 WBC (Bld) [Ratio] 0 % 0-5 [facility] Platelet mean volume (Bld) [Entitic vol] 10.1 fL 6.2-12.0 [facility] Platelets (Bld) [#/Vol] 279 10*3/uL 150-450 [facility] No Panel InformationOrdered By: Carlos Cavazos on 07-13-2023 Estimated GFR (MDRD) Amer 118 mL/min >60 [facility] Comment on above: GFR Calc Estimated GFR (MDRD) Non-Af Amer 98 mL/min >60 [facility] Comment on above: Non- GFR Calc Levetiracetam (Keppra) Level 25.5 ug/mL 10.0-40.0 [facility] Comment on above: Performed at: [email or web address] [address] [id number] Director: Alpesh Vázquez MD, Phone: [phone] RBC Auto (Bld) [#/Vol]Ordere d By: Carlos Cavazos on 07-13-2023 RBC (Bld) [#/Vol] 4.90 10*6/uL 4.6-6.2 [facility] Serum or plasma calcium oral urement (mass/volume)Ordered By: Carlos Cavazos on 07-13-2023 Calcium [Mass/Vol] 9.1 mg/dL 8.5-10.1 [facility] Serum or plasma creatinine m easurement (mass/volume)Ordered By: Carlos Cavazos on 07-13-2023 Creatinine [Mass/Vol] 0.82 mg/dL 0.70-1.30 [facility] Comment on above: The validity of the calculated GFR & GFRAA in patients over 70 years has not been determined. Clinical correlation is essential. Serum or plasma urea nitroge n measurement (mass/volume)Ordered By: Carlos Cavazos on 07-13-2023 Urea nitrogen [Mass/Vol] 18 mg/dL 7-18 [facility] Thin prep Papanicolaou smear with manual screeningOrdered By: Carlos Cavazos on 07-13-2023 Thin prep Papanicolaou smear with manual screening 6 5-15 [facility] No Panel InformationOrdered By: Carlos Cavazos on 07-12-2023 Valproic Acid (Depakene) Level < 3 ug/mL 50-100 [facility] Laboratory - CoagulationOrde red By: Carlos Cavazos on 07-05-2023 INR Coag (Bld) [Relative time] 2.4 {INR} [facility] PT Coag (PPP) [Time] 26.3 s 11.7-14.9 [facility] Laboratory - CoagulationOrde red By: Carlos Cavazos on 07-02-2023 INR Coag (Bld) [Relative time] 1.5 {INR} [facility] PT Coag (PPP) [Time] 18.5 s 11.7-14.9 [facility] Laboratory - CoagulationOrde red By: Carlos Cavazos on 06-28-2023 INR Coag (Bld) [Relative time] 1.7 {INR} [facility] PT Coag (PPP) [Time] 20.5 s 11.7-14.9 [facility] 36on 06-25-2023 36 [facility] called in stating appt scheduled 07/10/23 [place] has to be made further out, pt being transported by cot. Changed appt to 08/13/23 per [facility] only avail time for transport, first avail with DR Buck at 10:00 AM. Laboratory - CoagulationOrde red By: Carlos Cavazos on 06-25-2023 INR Coag (Bld) [Relative time] 3.8 {INR} [facility] PT Coag (PPP) [Time] 38.2 s 11.7-14.9 [facility] Laboratory - CoagulationOrde red By: Carlos Cavazos on 06-21-2023 INR Coag (Bld) [Relative time] 3.2 {INR} [facility] PT Coag (PPP) [Time] 32.9 s 11.7-14.9 [facility] No Panel InformationOrdered By: Carlos Cavazos on 06-13-2023 Valproic Acid (Depakene) Level < 3 ug/mL 50-100 [facility] Laboratory - CoagulationOrde red By: Carlos Cavazos on 06-06-2023 PT Coag (PPP) [Time] 30.5 s 11.7-14.9 [facility] Platelet poor plasma interna tional normalized ratio (INR)Ordered By: Carlos Cavazos on 06-06-2023 INR Coag (PPP) [Relative time] 2.9 {INR} [facility] International normalized rat io (INR) calculationOrdered By: Carlos Cavazos on 05-23-2023 INR Coag (PPP) [Relative time] 2.6 {INR} [facility] Laboratory - CoagulationOrde red By: Carlos Cavazos on 05-23-2023 PT Coag (PPP) [Time] 27.7 s 11.7-14.9 [facility] Laboratory - CoagulationOrde red By: Carlos Cavazos on 05-09-2023 PT Coag (PPP) [Time] 24.1 s 11.7-14.9 [facility] Whole blood international no rmalized ratio (INR)Ordered By: Carlos Cavazos on 05-09-2023 INR Coag (Bld) [Relative time] 2.1 {INR} [facility] Laboratory - CoagulationOrde red By: Carlos Cavazos on 04-23-2023 PT Coag (PPP) [Time] 26.4 s 11.7-14.9 [facility] Whole blood international no rmalized ratio (INR)Ordered By: Carlos Cavazos on 04-23-2023 INR Coag (Bld) [Relative time] 2.4 {INR} [facility] INR in Blood by Coagulation assayOrdered By: Carlos Cavazos on 04-09-2023 INR Coag (Bld) [Relative time] 2.1 {INR} [facility] Laboratory - CoagulationOrde red By: Carlos Cavazos on 04-09-2023 PT Coag (PPP) [Time] 23.9 s 11.7-14.9 [facility] INR in Blood by Coagulation assayOrdered By: Carlos Cavazos on 04-02-2023 INR Coag (Bld) [Relative time] 2.2 {INR} [facility] Laboratory - CoagulationOrde red By: Carlos Cavazos on 04-02-2023 PT Coag (PPP) [Time] 24.5 s 11.7-14.9 [facility] INR in Blood by Coagulation assayOrdered By: Carlos Cavazos on 03-26-2023 INR Coag (Bld) [Relative time] 1.7 {INR} [facility] Laboratory - CoagulationOrde red By: Carlos Cavazos on 03-26-2023 PT Coag (PPP) [Time] 19.9 s 11.7-14.9 [facility] INR in Blood by Coagulation assayOrdered By: Carlos Cavazos on 03-22-2023 INR Coag (Bld) [Relative time] 1.3 {INR} [facility] Laboratory - CoagulationOrde red By: Carlos Cavazos on 03-22-2023 PT Coag (PPP) [Time] 16.4 s 11.7-14.9 [facility] INR in Blood by Coagulation assayOrdered By: Carlos Cavazos on 03-08-2023 INR Coag (Bld) [Relative time] 2.0 {INR} [facility] Laboratory - CoagulationOrde red By: Carlos Cavazos on 03-08-2023 PT Coag (PPP) [Time] 22.5 s 11.7-14.9 [facility] Laboratory - CoagulationOrde red By: Carlos Cavazos on 02-22-2023 INR Coag (Bld) [Relative time] 2.2 {INR} [facility] Comment on above: Critical Value > 4.0 Whole blood prothrombin time Ordered By: Carlos Cavazos on 02-22-2023 PT Coag (Bld) [Time] 24.0 s 11.7-14.9 [facility] INR in Blood by Coagulation assayOrdered By: Cliff Bruner on 02-15-2023 INR Coag (Bld) [Relative time] 2.0 {INR} [facility] Laboratory - CoagulationOrde red By: Cliff Bruner on 02-15-2023 PT Coag (PPP) [Time] 22.8 s 11.7-14.9 [facility] INR in Blood by Coagulation assayOrdered By: Carlos Cavazos on 02-08-2023 INR Coag (Bld) [Relative time] 2.1 {INR} [facility] Laboratory - CoagulationOrde red By: Carlos Cavazos on 02-08-2023 PT Coag (PPP) [Time] 23.5 s 11.7-14.9 [facility] INR in Blood by Coagulation assayOrdered By: Carlos Cavazos on 01-31-2023 INR Coag (Bld) [Relative time] 2.0 {INR} [facility] Laboratory - CoagulationOrde red By: Carlos Cavazos on 01-31-2023 PT Coag (PPP) [Time] 22.4 s 11.7-14.9 [facility] Laboratory - CoagulationOrde red By: Carlos Cavazos on 01-29-2023 INR Coag (Bld) [Relative time] 1.8 {INR} [facility] Comment on above: Critical Value > 4.0 Whole blood prothrombin time Ordered By: Carlos Cavazos on 01-29-2023 PT Coag (Bld) [Time] 19.9 s 11.7-14.9 [facility] INR in Blood by Coagulation assayOrdered By: Carlos Cavazos on 01-26-2023 INR Coag (Bld) [Relative time] 1.5 {INR} [facility] Laboratory - CoagulationOrde red By: Carlos Cavazos on 01-26-2023 PT Coag (PPP) [Time] 18.3 s 11.7-14.9 [facility] INR in Blood by Coagulation assayOrdered By: Carlos Cavazos on 01-24-2023 INR Coag (Bld) [Relative time] 1.3 {INR} [facility] Laboratory - CoagulationOrde red By: Carlos Cavazos on 01-24-2023 PT Coag (PPP) [Time] 16.2 s 11.7-14.9 [facility] Basophil percentageOrdered B y: Carlos Cavazos on 01-22-2023 Basophil percentage 0 SEEN /hpf 0-5 [facility] Bilirubin Test strip Ql (U)O rdered By: Carlos Cavazos on 01-22-2023 Bilirubin Ql (U) Negative Negative [facility] Calcium oxalate crystals det ection in urine sediment by light microscopyOrdered By: Carlos Cavazos on 01-22-2023 Calcium oxalate crystals LM Ql (Urine sed) 1+ /hpf [facility] Culture, urineOrdered By: Sharif Crouch on 01-22-2023 Bacteria identified Cx Nom (U) Positive [facility] Ketones Test strip Ql (U)Ord ered By: Carlos Cavazos on 01-22-2023 Ketones Ql (U) Negative Negative [facility] Mucus LM Ql (Urine sed)Order ed By: Carlos Cavazos on 01-22-2023 Mucus Ql (Urine sed) 1+ /hpf [facility] Nitrite Test strip Ql (U)Ord ered By: Carlos Cavazos on 01-22-2023 Nitrite Ql (U) Negative Negative [facility] Protein Test strip Ql (U)Ord ered By: Carlos Cavazos on 01-22-2023 Protein Ql (U) Negative Negative [facility] Squamous epithelial cells de tection in urine sediment by light microscopyOrdered By: Carlos Cavazos on 01-22-2023 Epithelial cells.squamous LM Ql (Urine sed) 0 SEEN /hpf 0-5 [facility] Urine blood detectionOrdered By: Carlos Cavazos on 01-22-2023 RBC Ql (U) Negative Negative [facility] RBC Ql (U) 0 SEEN /hpf 0-5 [facility] Urine clarityOrdered By: Ted Cavazos on 01-22-2023 Clarity (U) Sl. Cloudy Clear [facility] Urine color determinationOrd ered By: Carlos Cavazos on 01-22-2023 Color (U) Yellow Yellow [facility] Urine glucose detectionOrder ed By: Carlos Cavazos on 01-22-2023 Glucose Ql (U) Normal mg/dl Normal [facility] Urine leukocyte esterase det ection by dipstickOrdered By: Carlos Cavazos on 01-22-2023 Leukocyte esterase Test strip Ql (U) Negative Negative [facility] Urine pHOrdered By: Carlos flores on 01-22-2023 pH (U) 5.0 [pH] 5.0 - 8.0 [facility] Urine sediment bacteria coun t by microscopy (number/high power field)Ordered By: Carlos Cavazos on 01-22-2023 Bacteria LM.HPF (Urine sed) [#/Area] 2 /[HPF] None Seen [facility] Urine specific gravity measu rementOrdered By: Carlos Cavazos on 01-22-2023 Specific gravity (U) [Rel density] 1.025 1.002-1.030 [facility] Urobilinogen Auto test strip Ql (U)Ordered By: Carlos Cavazos on 01-22-2023 Urobilinogen Ql (U) Normal mg/dl Normal [facility] INR in Blood by Coagulation assayOrdered By: Carlos Cavazos on 01-10-2023 INR Coag (Bld) [Relative time] 2.0 {INR} [facility] Laboratory - CoagulationOrde red By: Carlos Cavazos on 01-10-2023 PT Coag (PPP) [Time] 22.6 s 11.7-14.9 [facility] INR in Blood by Coagulation assayOrdered By: Carlos Cavazos on 12-27-2022 INR Coag (Bld) [Relative time] 2.1 {INR} [facility] Laboratory - CoagulationOrde red By: Carlos Cavazos on 12-27-2022 PT Coag (PPP) [Time] 24.1 s 11.7-14.9 [facility] INR in Blood by Coagulation assayOrdered By: Carlos Cavazos on 12-21-2022 INR Coag (Bld) [Relative time] 2.4 {INR} [facility] Laboratory - CoagulationOrde red By: Carlos Cavazos on 12-21-2022 PT Coag (PPP) [Time] 26.7 s 11.7-14.9 [facility] Laboratory - CoagulationOrde red By: Carlos Cavazos on 12-14-2022 INR Coag (Bld) [Relative time] 2.3 {INR} [facility] Comment on above: Critical Value > 4.0 Whole blood prothrombin time Ordered By: Carlos Cavazos on 12-14-2022 PT Coag (Bld) [Time] 25.2 s 11.7-14.9 [facility] Laboratory - CoagulationOrde red By: Carlos Cavazos on 12-07-2022 INR Coag (Bld) [Relative time] 2.5 {INR} [facility] Comment on above: Critical Value > 4.0 Whole blood prothrombin time Ordered By: Carlos Cavazos on 12-07-2022 PT Coag (Bld) [Time] 26.9 s 11.7-14.9 [facility] Amorphous sediment detection in urine sediment by light microscopyOrdered By: Carlos Cavazos on 07-21-2023 Amorphous sediment LM Ql (Urine sed) 1+ [facility] Basophil percentageOrdered B y: Carlos Cavazos on 11-24-2022 Basophil percentage 0 SEEN /hpf 0-5 [facility] Bilirubin [Mass/Vol] 0.30 mg/dL 0.20-1.00 [facility] Comment on above: For patients on eltr ombopag therapy, use of Dimension [place] TBIL is not recommended. Chloride [Moles/Vol] 107 mmol/L 98-107 [facility] Glucose [Mass/Vol] 95 mg/dL 74-106 [facility] Potassium [Moles/Vol] 4.2 mmol/L 3.5-5.1 [facility] Protein [Mass/Vol] 6.9 g/dL 6.4-8.2 [facility] Sodium [Moles/Vol] 138 mmol/L 136-145 [facility] WBC (Bld) [#/Vol] 10.4 10*3/uL 4.4-11.0 [facility] Bilirubin Test strip Ql (U)O rdered By: Carlos Cavazos on 11-24-2022 Bilirubin Ql (U) Negative Negative [facility] Blood erythrocytes count (nu mber/volume)Ordered By: Carlos Cavazos on 11-24-2022 RBC (Bld) [#/Vol] 4.44 10*6/uL 4.6-6.2 [facility] Blood hemoglobin measurement (mass/volume)Ordered By: Carlos Cavazos on 11-24-2022 Hemoglobin (Bld) [Mass/Vol] 11.8 g/dL 13.0-16.5 [facility] Blood platelet mean volumeOr dered By: Carlos Cavazos on 11-24-2022 Platelet mean volume (Bld) [Entitic vol] 9.7 fL 6.2-12.0 [facility] Calcium oxalate crystals det ection in urine sediment by light microscopyOrdered By: Carlos Cavazos on 11-24-2022 Calcium oxalate crystals LM Ql (Urine sed) RARE /hpf [facility] Culture, urineOrdered By: Sharif Crouch on 11-24-2022 Bacteria identified Cx Nom (U) Positive [facility] Determination of erythrocyte mean corpuscular volume (MCV)Ordered By: Carlos Cavazos on 11-24-2022 MCV (RBC) [Entitic vol] 84.7 fL 80-94 [facility] Hematocrit Auto (Bld) [Volum e fraction]Ordered By: Carlos Cavazos on 11-24-2022 Hematocrit (Bld) [Volume fraction] 37.6 % 40-54 [facility] Ketones Test strip Ql (U)Ord ered By: Carlos Cavazos on 11-24-2022 Ketones Ql (U) Negative Negative [facility] Laboratory - Chemistry and C hemistry - challengeOrdered By: Carlos Cavazos on 11-24-2022 ALP [Catalytic activity/Vol] 103 U/L 45-117 [facility] ALT [Catalytic activity/Vol] 14 U/L 16-61 [facility] CO2 [Moles/Vol] 26.0 mmol/L 21.0-32.0 [facility] Globulin (S) [Mass/Vol] 4.0 g/dL 2.2-4.2 [facility] Urea nitrogen/Creatinine [Mass ratio] 24.1 mg/mg 10-20 [facility] Laboratory - Hematology and Cell countsOrdered By: Carlos Cavazos on 11-24-2022 Erythrocyte distribution width (RBC) [Entitic vol] 49.4 fL 35.1-43.9 [facility] Erythrocyte distribution width (RBC) [Ratio] 16.0 % 11.6-14.6 [facility] MCH (RBC) [Entitic mass] 26.6 pg 27.0-32.0 [facility] MCHC Auto (RBC) [Mass/Vol]Or dered By: Carlos Cavazos on 11-24-2022 MCHC (RBC) [Mass/Vol] 31.4 g/dL 32-36 [facility] Mucus LM Ql (Urine sed)Order ed By: Carlos Cavazos on 11-24-2022 Mucus Ql (Urine sed) 0 SEEN /hpf [facility] Nitrite Test strip Ql (U)Ord ered By: Carlos Cavazos on 11-24-2022 Nitrite Ql (U) Negative Negative [facility] No Panel InformationOrdered By: Carlos Cavazos on 11-24-2022 Estimated GFR (MDRD) Amer 118 mL/min >60 [facility] Comment on above: GFR Calc Estimated GFR (MDRD) Non-Af Amer 97 mL/min >60 [facility] Comment on above: Non- GFR Calc Platelets bldOrdered By: Ted Cavazos on 11-24-2022 Platelets (Bld) [#/Vol] 309 10*3/uL 150-450 [facility] Protein Test strip Ql (U)Ord ered By: Carlos Cavazos on 11-24-2022 Protein Ql (U) Negative Negative [facility] Serum or plasma albumin oral urement (mass/volume)Ordered By: Carlos Cavazos on 11-24-2022 Albumin [Mass/Vol] 2.9 g/dL 3.2-5.0 [facility] Serum or plasma albumin/glob ulin mass ratioOrdered By: Carlos Cavazos on 11-24-2022 Albumin/Globulin [Mass ratio] 0.7 {ratio} 0.9-2.4 [facility] Serum or plasma calcium oral urement (mass/volume)Ordered By: Carlos Cavazos on 11-24-2022 Calcium [Mass/Vol] 8.7 mg/dL 8.5-10.1 [facility] Serum or plasma creatinine m easurement (mass/volume)Ordered By: Carlos Cavazos on 11-24-2022 Creatinine [Mass/Vol] 0.83 mg/dL 0.70-1.30 [facility] Comment on above: The validity of the calculated GFR & GFRAA in patients over 70 years has not been determined. Clinical correlation is essential. Serum or plasma urea nitroge n measurement (mass/volume)Ordered By: Carlos Cavazos on 11-24-2022 Urea nitrogen [Mass/Vol] 20 mg/dL 7-18 [facility] Squamous epithelial cells de tection in urine sediment by light microscopyOrdered By: Carlos Cavazos on 11-24-2022 Epithelial cells.squamous LM Ql (Urine sed) 0 SEEN /hpf 0-5 [facility] Thin prep Papanicolaou smear with manual screeningOrdered By: Carlos Cavazos on 11-24-2022 Thin prep Papanicolaou smear with manual screening 10 U/L 15-37 [facility] Thin prep Papanicolaou smear with manual screening 5 5-15 [facility] Urine blood detectionOrdered By: Carlos Cavazos on 11-24-2022 RBC Ql (U) Negative Negative [facility] RBC Ql (U) 0 SEEN /hpf 0-5 [facility] Urine clarityOrdered By: Ted Cavazos on 11-24-2022 Clarity (U) Clear Clear [facility] Urine color determinationOrd ered By: Carlos Cavazos on 11-24-2022 Color (U) Yellow Yellow [facility] Urine glucose detectionOrder ed By: Carlos Cavazos on 11-24-2022 Glucose Ql (U) Normal mg/dl Normal [facility] [facility] leukocyte esterase det ection by dipstickOrdered By: Carlos Cavazos on 11-24-2022 Leukocyte esterase Test strip Ql (U) Negative Negative [facility] Urine pHOrdered By: aCrlos flores on 11-24-2022 pH (U) 7.0 [pH] 5.0 - 8.0 [facility] Urine sediment bacteria coun t by microscopy (number/high power field)Ordered By: Carlos Cavazos on 11-24-2022 Bacteria LM.HPF (Urine sed) [#/Area] 0 /[HPF] None Seen [facility] Urine specific gravity measu rementOrdered By: Carlos Cavazos on 11-24-2022 Specific gravity (U) [Rel density] 1.010 1.002-1.030 [facility] Urobilinogen Auto test strip Ql (U)Ordered By: Carlos Cavazos on 11-24-2022 Urobilinogen Ql (U) Normal mg/dl Normal [facility] Laboratory - CoagulationOrde red By: Carlos Cavazos on 11-23-2022 INR Coag (Bld) [Relative time] 2.2 {INR} [facility] Comment on above: Critical Value > 4.0 Whole blood prothrombin time Ordered By: Carlos Cavazos on 11-23-2022 PT Coag (Bld) [Time] 24.5 s 11.7-14.9 [facility] Basophil percentageOrdered B y: Carlos Cavazos on 11-22-2022 Chloride [Moles/Vol] 105 mmol/L 98-107 [facility] Glucose [Mass/Vol] 91 mg/dL 74-106 [facility] Potassium [Moles/Vol] 4.1 mmol/L 3.5-5.1 [facility] Sodium [Moles/Vol] 138 mmol/L 136-145 [facility] WBC (Bld) [#/Vol] 12.0 10*3/uL 4.4-11.0 [facility] Blood erythrocytes count (nu mber/volume)Ordered By: Carlos Cavazos on 11-22-2022 RBC (Bld) [#/Vol] 4.65 10*6/uL 4.6-6.2 [facility] Blood hemoglobin measurement (mass/volume)Ordered By: Carlos Cavazos on 11-22-2022 Hemoglobin (Bld) [Mass/Vol] 12.4 g/dL 13.0-16.5 [facility] Blood platelet mean volumeOr dered By: Carlos Cavazos on 11-22-2022 Platelet mean volume (Bld) [Entitic vol] 10.3 fL 6.2-12.0 [facility] Determination of erythrocyte mean corpuscular volume (MCV)Ordered By: Carlos Cavazos on 11-22-2022 MCV (RBC) [Entitic vol] 86.0 fL 80-94 [facility] Hematocrit Auto (Bld) [Volum e fraction]Ordered By: Carlos Cavazos on 11-22-2022 Hematocrit (Bld) [Volume fraction] 40.0 % 40-54 [facility] Laboratory - Chemistry and C hemistry - challengeOrdered By: Carlos Cavazos on 11-22-2022 CO2 [Moles/Vol] 25.0 mmol/L 21.0-32.0 [facility] Urea nitrogen/Creatinine [Mass ratio] 23.6 mg/mg 10-20 [facility] Laboratory - Hematology and Cell countsOrdered By: Carlos Cavazos on 11-22-2022 Erythrocyte distribution width (RBC) [Entitic vol] 50.0 fL 35.1-43.9 [facility] Erythrocyte distribution width (RBC) [Ratio] 15.9 % 11.6-14.6 [facility] MCH (RBC) [Entitic mass] 26.7 pg 27.0-32.0 [facility] MCHC Auto (RBC) [Mass/Vol]Or dered By: Carlos Cavazos on 11-22-2022 MCHC (RBC) [Mass/Vol] 31.0 g/dL 32-36 [facility] No Panel InformationOrdered By: Carlos Cavazos on 11-22-2022 Estimated GFR (MDRD) Amer 115 mL/min >60 [facility] Comment on above: GFR Calc Estimated GFR (MDRD) Non-Af Amer 95 mL/min >60 [facility] Comment on above: Non- GFR Calc Platelets bldOrdered By: Pet er Kenny on 11-22-2022 Platelets (Bld) [#/Vol] 320 10*3/uL 150-450 [facility] Serum or plasma calcium oral urement (mass/volume)Ordered By: Carlos Cavazos on 11-22-2022 Calcium [Mass/Vol] 8.7 mg/dL 8.5-10.1 [facility] Serum or plasma creatinine m easurement (mass/volume)Ordered By: Carlos Cavazos on 11-22-2022 Creatinine [Mass/Vol] 0.85 mg/dL 0.70-1.30 [facility] Comment on above: The validity of the calculated GFR & GFRAA in patients over 70 years has not been determined. Clinical correlation is essential. Serum or plasma urea nitroge n measurement (mass/volume)Ordered By: Carlos Cavazos on 11-22-2022 Urea nitrogen [Mass/Vol] 20 mg/dL 7-18 [facility] Thin prep Papanicolaou smear with manual screeningOrdered By: Carlos Cavazos on 11-22-2022 Thin prep Papanicolaou smear with manual screening 8 5-15 [facility] Laboratory - CoagulationOrde red By: Carlos Cavazos on 11-09-2022 INR Coag (Bld) [Relative time] 2.1 {INR} [facility] Comment on above: Critical Value > 4.0 Whole blood prothrombin time Ordered By: Carlos Cavazos on 11-09-2022 PT Coag (Bld) [Time] 22.6 s 11.7-14.9 [facility] Laboratory - CoagulationOrde red By: Carlos Cavazos on 10-26-2022 INR Coag (Bld) [Relative time] 2.6 {INR} [facility] Comment on above: Critical Value > 4.0 Whole blood prothrombin time Ordered By: Carlos Cavazos on 10-26-2022 PT Coag (Bld) [Time] 28.5 s 11.7-14.9 [facility] Laboratory - CoagulationOrde red By: Carlos Cavazos on 10-12-2022 INR Coag (Bld) [Relative time] 2.4 {INR} [facility] Comment on above: Critical Value > 4.0 Whole blood prothrombin time Ordered By: Carlos Cavazos on 10-12-2022 PT Coag (Bld) [Time] 26.4 s 11.7-14.9 [facility] Laboratory - CoagulationOrde red By: Carlos Cavazos on 10-05-2022 INR Coag (Bld) [Relative time] 2.6 {INR} [facility] Comment on above: Critical Value > 4.0 Whole blood prothrombin time Ordered By: Carlos Cavazos on 10-05-2022 PT Coag (Bld) [Time] 28.0 s 11.7-14.9 [facility] Laboratory - CoagulationOrde red By: Carlos Cavazos on 09-28-2022 INR Coag (Bld) [Relative time] 2.7 {INR} [facility] Comment on above: Critical Value > 4.0 Whole blood prothrombin time Ordered By: Carlos Cavazos on 09-28-2022 PT Coag (Bld) [Time] 28.9 s 11.7-14.9 [facility] Laboratory - CoagulationOrde red By: Carlos Cavazos on 09-14-2022 INR Coag (Bld) [Relative time] 2.5 {INR} [facility] Comment on above: Critical Value > 4.0 Whole blood prothrombin time Ordered By: Carlos Cavazos on 09-14-2022 PT Coag (Bld) [Time] 27.4 s 11.7-14.9 [facility] Laboratory - CoagulationOrde red By: Carlos Cavazos on 08-31-2022 INR Coag (Bld) [Relative time] 2.3 {INR} [facility] Comment on above: Critical Value > 4.0 Whole blood prothrombin time Ordered By: Carlos Cavazos on 08-31-2022 PT Coag (Bld) [Time] 25.4 s 11.7-14.9 [facility] Basophil percentageOrdered B y: Carlos Cavazos on 08-23-2022 Chloride [Moles/Vol] 108 mmol/L 98-107 [facility] Glucose [Mass/Vol] 86 mg/dL 74-106 [facility] Potassium [Moles/Vol] 4.3 mmol/L 3.5-5.1 [facility] Sodium [Moles/Vol] 136 mmol/L 136-145 [facility] WBC (Bld) [#/Vol] 10.0 10*3/uL 4.4-11.0 [facility] Blood erythrocytes count (nu mber/volume)Ordered By: Carlos Cavazos on 08-23-2022 RBC (Bld) [#/Vol] 4.77 10*6/uL 4.6-6.2 [facility] Blood hemoglobin measurement (mass/volume)Ordered By: Carlos Cavazos on 08-23-2022 Hemoglobin (Bld) [Mass/Vol] 12.5 g/dL 13.0-16.5 [facility] Blood platelet mean volumeOr dered By: Carlos Cavazos on 08-23-2022 Platelet mean volume (Bld) [Entitic vol] 11.0 fL 6.2-12.0 [facility] Determination of erythrocyte mean corpuscular volume (MCV)Ordered By: Carlos Cavazos on 08-23-2022 MCV (RBC) [Entitic vol] 84.3 fL 80-94 [facility] Hematocrit Auto (Bld) [Volum e fraction]Ordered By: Carlos Cavazos on 08-23-2022 Hematocrit (Bld) [Volume fraction] 40.2 % 40-54 [facility] Laboratory - Chemistry and C hemistry - challengeOrdered By: Carlos Cavazos on 08-23-2022 CO2 [Moles/Vol] 24.0 mmol/L 21.0-32.0 [facility] Urea nitrogen/Creatinine [Mass ratio] 22.8 mg/mg 10-20 [facility] Laboratory - Hematology and Cell countsOrdered By: Carlos Cavazos on 08-23-2022 Erythrocyte distribution width (RBC) [Entitic vol] 49.3 fL 35.1-43.9 [facility] Erythrocyte distribution width (RBC) [Ratio] 16.0 % 11.6-14.6 [facility] MCH (RBC) [Entitic mass] 26.2 pg 27.0-32.0 [facility] MCHC Auto (RBC) [Mass/Vol]Or dered By: Carlos Cavazos on 08-23-2022 MCHC (RBC) [Mass/Vol] 31.1 g/dL 32-36 [facility] No Panel InformationOrdered By: Carlos Cavazos on 08-23-2022 Estimated GFR (MDRD) Amer 134 mL/min >60 [facility] Comment on above: GFR Calc Estimated GFR (MDRD) Non-Af Amer 110 mL/min >60 [facility] Comment on above: Non- GFR Calc Platelets bldOrdered By: Ted Cavazos on 08-23-2022 Platelets (Bld) [#/Vol] 268 10*3/uL 150-450 [facility] Serum or plasma calcium oral urement (mass/volume)Ordered By: Carlos Cavazos on 08-23-2022 Calcium [Mass/Vol] 9.1 mg/dL 8.5-10.1 [facility] Serum or plasma creatinine m easurement (mass/volume)Ordered By: Carlos Cavazos on 08-23-2022 Creatinine [Mass/Vol] 0.74 mg/dL 0.70-1.30 [facility] Comment on above: The validity of the calculated GFR & GFRAA in patients over 70 years has not been determined. Clinical correlation is essential. Serum or plasma urea nitroge n measurement (mass/volume)Ordered By: Carlos Cavazos on 08-23-2022 Urea nitrogen [Mass/Vol] 17 mg/dL 7-18 [facility] Thin prep Papanicolaou smear with manual screeningOrdered By: Carlos Cavazos on 08-23-2022 Thin prep Papanicolaou smear with manual screening 4 5-15 [facility] Laboratory - CoagulationOrde red By: Carlos Cavazos on 08-17-2022 INR Coag (Bld) [Relative time] 2.8 {INR} [facility] Comment on above: Critical Value > 4.0 Whole blood prothrombin time Ordered By: Carlos Cavazos on 08-17-2022 PT Coag (Bld) [Time] 29.6 s 11.7-14.9 [facility] Laboratory - CoagulationOrde red By: Carlos Cavazos on 08-14-2022 INR Coag (Bld) [Relative time] 3.9 {INR} [facility] Comment on above: Critical Value > 4.0 Whole blood prothrombin time Ordered By: Carlos Cavazos on 08-14-2022 PT Coag (Bld) [Time] 40.6 s 11.7-14.9 [facility] - CoagulationOrde red By: Carlos Cavazos on 07-31-2022 INR Coag (Bld) [Relative time] 2.5 {INR} [facility] Comment on above: Critical Value > 4.0 Whole blood prothrombin time Ordered By: Carlos Cavazos on 07-31-2022 PT Coag (Bld) [Time] 26.8 s 11.7-14.9 [facility] INR in Blood by Coagulation assayOrdered By: Carlos Cavazos on 07-24-2022 INR Coag (Bld) [Relative time] 2.3 {INR} [facility] Laboratory - CoagulationOrde red By: Carlos Cavazos on 07-24-2022 PT Coag (PPP) [Time] 24.7 s 11.7-14.9 [facility] - CoagulationOrde red By: Carlos Cavazos on 07-20-2022 INR Coag (Bld) [Relative time] 1.9 {INR} [facility] Comment on above: Critical Value > 4.0 Whole blood prothrombin time Ordered By: Carlos Cavazos on 07-20-2022 PT Coag (Bld) [Time] 20.6 s 11.7-14.9 [facility] - CoagulationOrde red By: Carlos Cavazos on 07-17-2022 INR Coag (Bld) [Relative time] 1.3 {INR} [facility] Comment on above: Critical Value > 4.0 Whole blood prothrombin time Ordered By: Carlos Cavazos on 07-17-2022 PT Coag (Bld) [Time] 15.9 s 11.7-14.[address] [facility] Basophil percentageOrdered B y: Carlos Cavazos on 07-11-2022 Chloride [Moles/Vol] 105 mmol/L 98-107 [facility] Glucose [Mass/Vol] 97 mg/dL 74-106 [facility] Potassium [Moles/Vol] 3.9 mmol/L 3.5-5.1 [facility] Sodium [Moles/Vol] 140 mmol/L 136-145 [facility] WBC (Bld) [#/Vol] 9.4 10*3/uL 4.4-11.0 [facility] Blood erythrocytes count (nu mber/volume)Ordered By: Carlos Cavazos on 07-11-2022 RBC (Bld) [#/Vol] 4.66 10*6/uL 4.6-6.2 [facility] Blood hemoglobin measurement (mass/volume)Ordered By: Carlos Cavazos on 07-11-2022 Hemoglobin (Bld) [Mass/Vol] 12.0 g/dL 13.0-16.5 [facility] Blood platelet mean volumeOr dered By: Carlos Cavazos on 07-11-2022 Platelet mean volume (Bld) [Entitic vol] 10.4 fL 6.2-12.0 [facility] Determination of erythrocyte mean corpuscular volume (MCV)Ordered By: Carlos Cavazos on 07-11-2022 MCV (RBC) [Entitic vol] 83.7 fL 80-94 [facility] Hematocrit Auto (Bld) [Volum e fraction]Ordered By: Carlos Cavazos on 07-11-2022 Hematocrit (Bld) [Volume fraction] 39.0 % 40-54 [facility] Laboratory - Chemistry and C hemistry - challengeOrdered By: Carlos Cavazos on 07-11-2022 CO2 [Moles/Vol] 28.0 mmol/L 21.0-32.0 [facility] Urea nitrogen/Creatinine [Mass ratio] 23.0 mg/mg 10-20 [facility] Laboratory - Hematology and Cell countsOrdered By: Carlos Cavazos on 07-11-2022 Erythrocyte distribution width (RBC) [Entitic vol] 51.0 fL 35.1-43.9 [facility] Erythrocyte distribution width (RBC) [Ratio] 16.8 % 11.6-14.6 [facility] MCH (RBC) [Entitic mass] 25.8 pg 27.0-32.0 [facility] MCHC Auto (RBC) [Mass/Vol]Or dered By: Carlos Cavazos on 07-11-2022 MCHC (RBC) [Mass/Vol] 30.8 g/dL 32-36 [facility] No Panel InformationOrdered By: Carlos Cavazos on 07-11-2022 Estimated GFR (MDRD) Amer 126 mL/min >60 [facility] Comment on above: GFR Calc Estimated GFR (MDRD) Non-Af Amer 104 mL/min >60 [facility] Comment on above: Non- GFR Calc Platelets bldOrdered By: Ted Cavazos on 07-11-2022 Platelets (Bld) [#/Vol] 291 10*3/uL 150-450 [facility] Serum or plasma calcium oral urement (mass/volume)Ordered By: Carlos Cavazos on 07-11-2022 Calcium [Mass/Vol] 9.2 mg/dL 8.5-10.1 [facility] Serum or plasma creatinine m easurement (mass/volume)Ordered By: Carlos Cavazos on 07-11-2022 Creatinine [Mass/Vol] 0.78 mg/dL 0.70-1.30 [facility] Comment on above: The validity of the calculated GFR & GFRAA in patients over 70 years has not been determined. Clinical correlation is essential. Serum or plasma urea nitroge n measurement (mass/volume)Ordered By: Carlos Cavazos on 07-11-2022 Urea nitrogen [Mass/Vol] 18 mg/dL 7-18 [facility] Thin prep Papanicolaou smear with manual screeningOrdered By: Carlos Cavazos on 07-11-2022 Thin prep Papanicolaou smear with manual screening 7 5-15 [facility] Laboratory - CoagulationOrde red By: Carlos Cavazos on 07-10-2022 INR Coag (Bld) [Relative time] 1.8 {INR} [facility] Comment on above: Critical Value > 4.0 Whole blood prothrombin time Ordered By: Carlos Cavazos on 07-10-2022 PT Coag (Bld) [Time] 21.0 s 11.7-14.9 [facility] Laboratory - CoagulationOrde red By: Carlos Cavazos on 07-03-2022 INR Coag (Bld) [Relative time] 1.9 {INR} [facility] Comment on above: Critical Value > 4.0 Whole blood prothrombin time Ordered By: Carlos Cavazos on 07-03-2022 PT Coag (Bld) [Time] 22.7 s 11.7-14.9 [facility] INR in Blood by Coagulation assayOrdered By: Carlos Cavazos on 06-27-2022 INR Coag (Bld) [Relative time] 2.9 {INR} [facility] Laboratory - CoagulationOrde red By: Carlos Cavazos on 06-27-2022 PT Coag (PPP) [Time] 29.9 s 11.7-14.9 [facility] Laboratory - CoagulationOrde red By: Carlos Cavazos on 06-13-2022 INR Coag (Bld) [Relative time] 2.1 {INR} [facility] Comment on above: Critical Value > 4.0 Whole blood prothrombin time Ordered By: Carlos Cavazos on 06-13-2022 PT Coag (Bld) [Time] 24.4 s 11.7-14.9 [facility] Laboratory - CoagulationOrde red By: Carlos Cavazos on 06-06-2022 INR Coag (Bld) [Relative time] 1.5 {INR} [facility] Comment on above: Critical Value > 4.0 Whole blood prothrombin time Ordered By: Carlos Cavazos on 06-06-2022 PT Coag (Bld) [Time] 18.4 s 11.7-14.9 [facility] Basophil percentageOrdered B y: Carlos Cavazos on 05-30-2022 Chloride [Moles/Vol] 105 mmol/L 98-107 [facility] Glucose [Mass/Vol] 95 mg/dL 74-106 [facility] Potassium [Moles/Vol] 3.9 mmol/L 3.5-5.1 [facility] Sodium [Moles/Vol] 140 mmol/L 136-145 [facility] WBC (Bld) [#/Vol] 7.6 10*3/uL 4.4-11.0 [facility] Blood erythrocytes count (nu mber/volume)Ordered By: Carlos Cavazos on 05-30-2022 RBC (Bld) [#/Vol] 4.79 10*6/uL 4.6-6.2 [facility] Blood hemoglobin measurement (mass/volume)Ordered By: Carlos Cavazos on 05-30-2022 Hemoglobin (Bld) [Mass/Vol] 12.1 g/dL 13.0-16.5 [facility] Blood platelet mean volumeOr dered By: Carlos Cavazos on 05-30-2022 Platelet mean volume (Bld) [Entitic vol] 10.4 fL 6.2-12.0 [facility] Determination of erythrocyte mean corpuscular volume (MCV)Ordered By: Carlos Cavazos on 05-30-2022 MCV (RBC) [Entitic vol] 82.5 fL 80-94 [facility] Hematocrit Auto (Bld) [Volum e fraction]Ordered By: Carlos Cavazos on 05-30-2022 Hematocrit (Bld) [Volume fraction] 39.5 % 40-54 [facility] INR in Blood by Coagulation assayOrdered By: Carlos Cavazos on 05-30-2022 INR Coag (Bld) [Relative time] 1.9 {INR} [facility] Laboratory - Chemistry and C hemistry - challengeOrdered By: Carlos Cavazos on 05-30-2022 CO2 [Moles/Vol] 27.0 mmol/L 21.0-32.0 [facility] Urea nitrogen/Creatinine [Mass ratio] 21.4 mg/mg 10-20 [facility] Laboratory - CoagulationOrde red By: Carlos Cavazos on 05-30-2022 PT Coag (PPP) [Time] 21.6 s 11.7-14.9 [facility] Laboratory - Hematology and Cell countsOrdered By: Carlos Cavazos on 05-30-2022 Erythrocyte distribution width (RBC) [Entitic vol] 48.8 fL 35.1-43.9 [facility] Erythrocyte distribution width (RBC) [Ratio] 16.2 % 11.6-14.6 [facility] MCH (RBC) [Entitic mass] 25.3 pg 27.0-32.0 [facility] Auto (RBC) [Mass/Vol]Or dered By: Carlos Cavazos on 05-30-2022 MCHC (RBC) [Mass/Vol] 30.6 g/dL 32-36 [facility] No Panel InformationOrdered By: Carlos Cavazos on 05-30-2022 Estimated GFR (MDRD) Amer 133 mL/min >60 [facility] Comment on above: GFR Calc Estimated GFR (MDRD) Non-Af Amer 110 mL/min >60 [facility] Comment on above: Non- GFR Calc Platelets bldOrdered By: Ted Cavazos on 05-30-2022 Platelets (Bld) [#/Vol] 308 10*3/uL 150-450 [facility] Serum or plasma calcium oral urement (mass/volume)Ordered By: Carlos Cavazos on 05-30-2022 Calcium [Mass/Vol] 9.1 mg/dL 8.5-10.1 [facility] Serum or plasma creatinine m easurement (mass/volume)Ordered By: Carlos Cavazos on 05-30-2022 Creatinine [Mass/Vol] 0.75 mg/dL 0.70-1.30 [facility] Comment on above: The validity of the calculated GFR & GFRAA in patients over 70 years has not been determined. Clinical correlation is essential. Serum or plasma urea nitroge n measurement (mass/volume)Ordered By: Carlos Cavazos on 05-30-2022 Urea nitrogen [Mass/Vol] 16 mg/dL 7-18 [facility] Thin prep Papanicolaou smear with manual screeningOrdered By: Carlos Cavazos on 05-30-2022 Thin prep Papanicolaou smear with manual screening 8 5-15 [facility] Laboratory - CoagulationOrde red By: Carlos Cavazos on 05-16-2022 INR Coag (Bld) [Relative time] 2.6 {INR} [facility] Comment on above: Critical Value > 4.0 Whole blood prothrombin time Ordered By: Carlos Cavazos on 05-16-2022 PT Coag (Bld) [Time] 29.9 s 11.7-14.9 [facility] - CoagulationOrde red By: Carlos Cavazos on 05-02-2022 INR Coag (Bld) [Relative time] 2.0 {INR} [facility] Comment on above: Critical Value > 4.0 Whole blood prothrombin time Ordered By: Carlos Cavazos on 05-02-2022 PT Coag (Bld) [Time] 23.2 s 11.7-14.9 [facility] - CoagulationOrde red By: Carlos Cavazos on 04-27-2022 INR Coag (Bld) [Relative time] 2.7 {INR} [facility] Comment on above: Critical Value > 4.0 Whole blood prothrombin time Ordered By: Carlos Cavazos on 04-27-2022 PT Coag (Bld) [Time] 31.1 s 11.7-14.9 [facility] - CoagulationOrde red By: Carlos Cavazos on 04-26-2022 INR Coag (Bld) [Relative time] 2.8 {INR} [facility] Comment on above: Critical Value > 4.0 Whole blood prothrombin time Ordered By: Carlos Cavazos on 04-26-2022 PT Coag (Bld) [Time] 32.6 s 11.7-14.9 [facility] - CoagulationOrde red By: Carlos Cavazos on 04-11-2022 INR Coag (Bld) [Relative time] 2.9 {INR} [facility] Comment on above: Critical Value > 4.0 Whole blood prothrombin time Ordered By: Carlos Cavazos on 04-11-2022 PT Coag (Bld) [Time] 32.8 s 11.7-14.9 [facility] - CoagulationOrde red By: Carlos Cavazos on 03-28-2022 INR Coag (Bld) [Relative time] 2.1 {INR} [facility] Comment on above: Critical Value > 4.0 Whole blood prothrombin time Ordered By: Carlos Cavazos on 03-28-2022 PT Coag (Bld) [Time] 24.8 s 11.7-14.9 [facility] - CoagulationOrde red By: Carlos Cavazos on 03-23-2022 INR Coag (Bld) [Relative time] 1.7 {INR} [facility] Comment on above: Critical Value > 4.0 Whole blood prothrombin time Ordered By: Carlos Cavazos on 03-23-2022 PT Coag (Bld) [Time] 20.9 s 11.7-14.9 [facility] - CoagulationOrde red By: Carlos Cavazos on 03-16-2022 INR Coag (Bld) [Relative time] 1.7 {INR} [facility] Comment on above: Critical Value > 4.0 Whole blood prothrombin time Ordered By: Carlos Cavazos on 03-16-2022 PT Coag (Bld) [Time] 19.9 s 11.7-14.9 [facility] - CoagulationOrde red By: Carlos Cavazos on 03-09-2022 INR Coag (Bld) [Relative time] 1.8 {INR} [facility] Comment on above: Critical Value > 4.0 Whole blood prothrombin time Ordered By: Carlos Cavazos on 03-09-2022 PT Coag (Bld) [Time] 21.9 s 11.7-14.9 [facility] - CoagulationOrde red By: Carlos Cavazos on 03-06-2022 INR Coag (Bld) [Relative time] 1.7 {INR} [facility] Comment on above: Critical Value > 4.0 Whole blood prothrombin time Ordered By: Carlos Cavazos on 03-06-2022 PT Coag (Bld) [Time] 20.0 s 11.7-14.9 [facility] CBC with Auto Differentialon 03-02-2022 Absolute [...] - 10.7 10*3/uL [facility] Test Performed by [facility], [address] [place] [address] [facility] [address] HEAD WO CONTRASTon 2021 Patient Name: ANDREW SIFUENTES Computed Tomography ACCESSION EXAM DATE/TIME PROCEDURE ORDERING PROVIDER [id number] 03/02/2022 13:[address] Head or Brain w/o [id number] -LANETTE MUNGUIA CPT code 24422 Reason For Exam (CT Head or Brain [...] (parent active on the left for [employer] shunting and disconnected on the right). 2. No definite evidence of acute infarction (MRI more sensitive), mass lesion, nor hemorrhage. Report Dictated on --- Final --- Dictated: 03/02/2022 1:35 pm Dictating Physician: MD GUTIERREZ WILLIAM Signed Date and Time: 03/02/2022 1:39 pm Signed by: MD GUTIERREZ WILLIAM Transcribed Date and Time: 03/02/2022 1:35 [facility] Anant Gutierrez MD - 03/02/2022 Patient Name: [id number] Computed Tomography ACCESSION EXAM DATE/TIME PROCEDURE ORDERING PROVIDER [id number] 03/02/2022 13:[address] Head or Brain w/o [id number] -LANETTE MUNGUIA Contrast CPT code 08303 Reason For Exam (CT Head or Brain [...] (parent active on the left for [employer] shunting and disconnected on the right). 2. [...] Tomography ACCESSION EXAM DATE/TIME PROCEDURE ORDERING PROVIDER [id number] 03/02/2022 13:[address] Head or Brain w/o [id number] -LANETTE MUNGUIA Contrast CPT code 85069 Reason For Exam (CT Head or Brain [...] (parent active on the left for [employer] shunting and disconnected on the right). 2. No definite evidence of acute infarction (MRI more sensitive), mass lesion, nor hemorrhage. Report Dictated on Final Dictated: 03/02/2022 1:35 pm Dictating Physician: MD GUTIERREZ WILLIAM Signed Date and Time: 03/02/2022 1:39 pm Signed by: MD GUTIERREZ WILLIAM Transcribed Date and Time: 03/02/2022 1:35 Normal [facility] Comp Metabolic Panelon 03-02 Calcium [Mass/Vol] 9.1 mg/dL Normal 8.4-10.4 [facility] Comment on above: Performed By: #### H EMDF PT, CMP3 ####[id number] [place], [place] ALP [Catalytic activity/Vol] 128 U/L High 38-126 [facility] Comment on above: Performed By: #### H BIMALF PT, CMP3 ####[id number] [place], [place] ALT [Catalytic activity/Vol] 12 U/L Normal 0-49 [facility] Comment on above: Result Comment: The ALT test is performed by an updated assay method. Please note that the reference intervals have been changed and are now sex specific. Performed By: #### H EMDF PT, CMP3 ####[id number] [place], [place] Anion gap [Moles/Vol] 7 mmol/L Normal 3-13 [facility] Comment on above: Performed By: #### H EMDF, PT, CMP3 ####[id number] [place], [place] AST [Catalytic activity/Vol] 24 U/L Normal 15-46 [facility] Comment on above: Performed By: #### H BIMALF PT, CMP3 ####[facility] [address] [place], [place] Bilirubin [Mass/Vol] 0.4 mg/dL Normal 0.2-1.3 [facility] Comment on above: Performed By: #### H EMDF PT, CMP3 ####[facility] [id number] [place], [place] CO2 [Moles/Vol] 27 mmol/L Normal 22-30 [facility] Comment on above: Performed By: #### H BIMALF PT, CMP3 ####[facility] [id number] [place] Glucose [Mass/Vol] 109 mg/dL High 70-100 [facility] Comment on above: Performed By: #### H BIMALF PT, CMP3 ####[facility] [id number] [place] Protein [Mass/Vol] 8.1 g/dL Normal 6.3-8.2 [facility] Comment on above: Performed By: #### H TIERA PT, CMP3 ####[facility] [address] [place], [place] Urea nitrogen [Mass/Vol] 22 mg/dL High 7-17 [facility] Comment on above: Performed By: #### H BIMALF PT, CMP3 ####[facility] [address] [place], [place] Creatinine [Mass/Vol] 0.63 mg/dL Normal 0.52-1.25 [facility] Comment on above: Performed By: #### H EMDF PT, CMP3 ####[facility] [address] [place], [place] eGFR OTHER > 90.0 Normal >60 [facility] Comment on above: Result Comment: KDIG [...] Performed By: #### H CHRISTEL MOTT CMP3 ####[address] GFR/1.73 sq M.predicted among blacks MDRD (S/P/Bld) [Vol rate/Area] mL/min/{1.73_m2} Normal >60 [facility] Comment on above: Performed By: #### H CHRISTEL MOTT CMP3 ####[address] Albumin [Mass/Vol] 4.1 g/dL Normal 3.5-5.0 [facility] Comment on above: Performed By: #### H CHRISTEL MOTT CMP3 ####[address] Chloride [Moles/Vol] 106 mmol/L Normal 98-107 [facility] Comment on above: Performed By: #### H CHRISTEL MOTT CMP3 ####[address] Potassium [Moles/Vol] 3.7 mmol/L Normal 3.5-5.1 [facility] Comment on above: Performed By: #### H CHRISTEL MOTT CMP3 ####[address] Sodium [Moles/Vol] 140 mmol/L Normal 135-145 [facility] Comment on above: Performed By: #### H CHRISTEL MOTT CMP3 ####[address] [address] [facility] 03-02-2022 Albumin [Mass/Vol] 4.1 g/dL 3.5 - [...] P INF mL/min [facility] EGFR IF NonAfrican Salvadorean mL/min 60 - PINF mL/min [facility] Comment [...] - 17 mg/dL [facility] Test Performed by [facility], [address] [place] [id number] [facility] ED Provider Noteon 2 ED Provider Note [facility] EMERGENCY DEPT EMERGENCY DEPARTMENT ENCOUNTER [...] medical history of hydrocephalus status post [employer] shunt, history of DVT on Coumadin who presents to the emergency department from [facility] for evaluation following mechanical fall. Patient rolled out of bed. Unwitnessed. Found down on ground by nursing staff. Nonambulatory at baseline. Patient reports he did not hit his head. Has no acute complaints. Denies any pain or traumatic injury. 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 Normal [facility] Hemogram w/ Autodiffon 03-02 Abs Baso Cnt 0.2 10*3/uL Normal 0.0-0.2 [facility] Comment on above: Performed By: #### H TIERA PT, CMP3 ####[facility] [place] [address] Abs Neutrophile Cnt 10.7 10*3/uL High 1.8-7.0 [facility] Comment on above: Performed By: #### H TIERA PT, CMP3 ####[facility] [place] [address] Basophils/100 WBC (Bld) 1.1 % Normal 0.0-2.0 [facility] Comment on above: Performed By: #### H TIERA PT, CMP3 ####[facility] [place] [address] Eosinophils (Bld) [#/Vol] 0.1 10*3/uL Normal 0.0-0.5 [facility] Comment on above: Performed By: #### H BIMALF PT, CMP3 ####[address] [place] [address] Eosinophils/100 WBC (Bld) 0.5 % Low 1.0-6.0 [facility] Comment on above: Performed By: #### H EMDF PT, CMP3 ####[address] [address] Granulocytes/100 WBC (Bld) 73.9 % Normal 40.0-80.0 [facility] Comment on above: Performed By: #### H EMDF PT, CMP3 ####[address] [address] Lymphocytes (Bld) [#/Vol] 3.0 10*3/uL Normal 1.0-4.3 [facility] Comment on above: Performed By: #### H EMDHeydi PT, CMP3 ####[address] [address] Lymphocytes/100 WBC (Bld) 20.6 % Normal 20.0-40.0 [facility] Comment on above: Performed By: #### H EMDHeydi PT, CMP3 ####[address] [address] Monocytes (Bld) [#/Vol] 0.6 10*3/uL Normal 0.0-0.8 [facility] Comment on above: Performed By: #### H EMDF PT, CMP3 ####[address] [address] Monocytes/100 WBC (Bld) 3.9 % Normal 2.0-10.0 [facility] Comment on above: Performed By: #### H EMDHeydi PT, CMP3 ####[address] [address] Platelet mean volume (Bld) [Entitic vol] 8.5 fL Normal 7.4-12.4 [facility] Comment on above: Result Comment: MPV is a calculated measurement using platelet volume ratio. Performed By: #### H EMDF PT, CMP3 ####[id number] [place], [place] Platelets (Bld) [#/Vol] 411 10*3/uL Normal 140-440 [facility] Comment on above: Performed By: #### H EMDF, PT, CMP3 ####[address] Erythrocyte distribution width (RBC) [Ratio] 17.0 % High 11.5-14.5 [facility] Comment on above: Performed By: #### H EMDF, PT, CMP3 ####[address] Hematocrit (Bld) [Volume fraction] 37.4 % Low 40.0-52.0 [facility] Comment on above: Performed By: #### H EMDF, PT, CMP3 ####[address] Hemoglobin (Bld) [Mass/Vol] 12.1 g/dL Low 13.0-18.0 [facility] Comment on above: Performed By: #### H EMDF, PT, CMP3 ####[address] MCH (RBC) [Entitic mass] 26.2 pg Normal 26.0-34.0 [facility] Comment on above: Performed By: #### H EMDF, PT, CMP3 ####[address] MCHC 32.3 % Normal 32.0-36.0 [facility] Comment on above: Performed By: #### H EMDF, PT, CMP3 ####[address] MCV (RBC) [Entitic vol] 81.1 fL Normal 80.0-98.0 [facility] Comment on above: Performed By: #### H EMDF, PT, CMP3 ####[address] RBC (Bld) [#/Vol] 4.61 10*6/uL Normal 4.40-5.90 [facility] Comment on above: Performed By: #### H BIMALF PT, CMP3 ####[address] WBC (Bld) [#/Vol] 14.5 10*3/uL High 3.6-10.7 [facility] Comment on above: Performed By: #### H EMDF PT, CMP3 ####[address] Prothrombin Timeon INR 1.9 High 0.9-1.1 [facility] Comment on above: Result Comment: Harry [...] Performed By: #### H TIERA PT, CMP3 ####[address] PT Coag (PPP) [Time] 18.9 s High 9.0-12.0 [facility] Comment on above: Result Comment: . Performed By: #### H BIMALF PT, CMP3 ####[address] Protime-INRon 03-02-2022 INR Coag (Bld) [Relative time] 1.9 {INR} High [facility] Comment on above: Recommended Anticoag ulant Therapy: [...] Interpretation and review of laboratory results Abnormal [facility] PT Coag (PPP) [Time] 18.9 s High 9.0 - 12.0 s [facility] Comment on above: . Test Performed by [facility], [address] [place] [id number] [facility] Laboratory - CoagulationOrde red By: Carlos Cavazos on 02-20-2022 INR Coag (Bld) [Relative time] 2.6 {INR} [facility] Comment on above: Critical Value > 4.0 Whole blood prothrombin time Ordered By: Carlos Cavazos on 02-20-2022 PT Coag (Bld) [Time] 30.1 s 11.7-14.9 [facility] Laboratory - CoagulationOrde red By: Carlos Cavazos on 02-13-2022 INR Coag (Bld) [Relative time] 2.3 {INR} [facility] Comment on above: Critical Value > 4.0 Whole blood prothrombin time Ordered By: Carlos Cavazos on 02-13-2022 PT Coag (Bld) [Time] 26.7 s 11.7-14.9 [facility] Laboratory - CoagulationOrde red By: Carlos Cavazos on 02-06-2022 INR Coag (Bld) [Relative time] 2.3 {INR} [facility] Comment on above: Critical Value > 4.0 Whole blood prothrombin time Ordered By: Carlos Cavazos on 02-06-2022 PT Coag (Bld) [Time] 26.6 s 11.7-14.9 [facility] Laboratory - Coagulationon 0 01-30-2022 INR Coag (Bld) [Relative time] 1.7 {INR} [facility] Work Phone: Comment on above: Critical Value > 4.0 Whole blood prothrombin time on 01-30-2022 PT Coag (Bld) [Time] 20.1 s 11.7-14.9 [facility] Work Phone: Laboratory - Coagulationon 0 01-26-2022 INR Coag (Bld) [Relative time] 1.8 {INR} [facility] Work Phone: Comment on above: Critical Value > 4.0 Whole blood prothrombin time on 01-26-2022 PT Coag (Bld) [Time] 21.8 s 11.7-14.9 [facility] Work Phone: Laboratory - Coagulationon 0 01-19-2022 INR Coag (Bld) [Relative time] 2.2 {INR} [facility] Work Phone: Comment on above: Critical Value > 4.0 Whole blood prothrombin time on 01-19-2022 PT Coag (Bld) [Time] 25.7 s 11.7-14.9 [facility] Work Phone: INR in Blood by Coagulation assayon 01-10-2022 INR Coag (Bld) [Relative time] 1.8 {INR} [facility] Work Phone: Laboratory - Coagulationon 0 01-10-2022 PT Coag (PPP) [Time] 20.9 s 11.7-14.9 [facility] Work Phone: Basophil percentageon 2021 Chloride [Moles/Vol] 107 mmol/L 98-107 [facility] Work Phone: Glucose [Mass/Vol] 82 mg/dL 74-106 [facility] Work Phone: Potassium [Moles/Vol] 3.4 mmol/L 3.5-5.1 [facility] Work Phone: Sodium [Moles/Vol] 143 mmol/L 136-145 [facility] Work Phone: WBC (Bld) [#/Vol] 10.4 10*3/uL 4.4-11.0 [facility] Work Phone: Blood erythrocytes count (nu mber/volume)on 01-05-2022 RBC (Bld) [#/Vol] 4.27 10*6/uL 4.6-6.2 [facility] Work Phone: Blood hemoglobin measurement (mass/volume)on 01-05-2022 Hemoglobin (Bld) [Mass/Vol] 11.2 g/dL 13.0-16.5 [facility] Work Phone: Blood platelet mean volumeon 01-05-2022 Platelet mean volume (Bld) [Entitic vol] 10.3 fL 6.2-12.0 [facility] Work Phone: Determination of erythrocyte mean corpuscular volume (MCV)on 01-05-2022 MCV (RBC) [Entitic vol] 84.8 fL 80-94 [facility] Work Phone: Hematocrit Auto (Bld) [Volum e fraction]on 01-05-2022 Hematocrit (Bld) [Volume fraction] 36.2 % 40-54 [facility] Work Phone: Laboratory - Chemistry and C hemistry - challengeon 01-05-2022 CO2 [Moles/Vol] 28.0 mmol/L 21.0-32.0 [facility] Work Phone: Urea nitrogen/Creatinine [Mass ratio] 20.0 mg/mg 10-20 [facility] Work Phone: Laboratory - Hematology and Cell countson 01-05-2022 Erythrocyte distribution width (RBC) [Entitic vol] 51.8 fL 35.1-43.9 [facility] Work Phone: Erythrocyte distribution width (RBC) [Ratio] 16.8 % 11.6-14.6 [facility] Work Phone: MCH (RBC) [Entitic mass] 26.2 pg 27.0-32.0 [facility] Work Phone: MCHC Auto (RBC) [Mass/Vol]on 01-05-2022 MCHC (RBC) [Mass/Vol] 30.9 g/dL 32-36 [facility] Work Phone: No Panel Informationon 01-05 Estimated GFR (MDRD) Amer 133 mL/min >60 [facility] Work Phone: Comment on above: GFR Calc Estimated GFR (MDRD) Non-Af Amer 110 mL/min >60 [facility] Work Phone: Comment on above: Non- GFR Calc Platelets bldon 01-05-2022 Platelets (Bld) [#/Vol] 373 10*3/uL 150-450 [facility] Work Phone: Serum or plasma calcium oral urement (mass/volume)on 01-05-2022 Calcium [Mass/Vol] 8.8 mg/dL 8.5-10.1 [facility] Work Phone: Serum or plasma creatinine m easurement (mass/volume)on 01-05-2022 Creatinine [Mass/Vol] 0.75 mg/dL 0.70-1.30 [facility] Work Phone: Comment on above: The validity of the calculated GFR & GFRAA in patients over 70 years has not been determined. Clinical correlation is essential. Serum or plasma urea nitroge n measurement (mass/volume)on 01-05-2022 Urea nitrogen [Mass/Vol] 15 mg/dL 7-18 [facility] Work Phone: Thin prep Papanicolaou smear with manual screeningon 01-05-2022 Thin prep Papanicolaou smear with manual screening 8 5-15 [facility] Work Phone: Laboratory - Coagulationon 0 12-30-2021 INR Coag (Bld) [Relative time] 2.0 {INR} [facility] Work Phone: Comment on above: Critical Value > 4.0 Whole blood prothrombin time on 12-30-2021 PT Coag (Bld) [Time] 23.7 s 11.7-14.9 [facility] Work Phone: Basophil percentageon 2021 Chloride [Moles/Vol] 106 mmol/L 98-107 [facility] Work Phone: Glucose [Mass/Vol] 91 mg/dL 74-106 [facility] Work Phone: Potassium [Moles/Vol] 3.4 mmol/L 3.5-5.1 [facility] Work Phone: Sodium [Moles/Vol] 141 mmol/L 136-145 [facility] Work Phone: WBC (Bld) [#/Vol] 10.2 10*3/uL 4.4-11.0 [facility] Work Phone: Blood erythrocytes count (nu mber/volume)on 12-28-2021 RBC (Bld) [#/Vol] 4.22 10*6/uL 4.6-6.2 [facility] Work Phone: Blood hemoglobin measurement (mass/volume)on 12-28-2021 Hemoglobin (Bld) [Mass/Vol] 11.2 g/dL 13.0-16.5 [facility] Work Phone: Blood platelet mean volumeon 12-28-2021 Platelet mean volume (Bld) [Entitic vol] 10.1 fL 6.2-12.0 [facility] Work Phone: Determination of erythrocyte mean corpuscular volume (MCV)on 12-28-2021 MCV (RBC) [Entitic vol] 82.7 fL 80-94 [facility] Work Phone: Hematocrit Auto (Bld) [Volum e fraction]on 12-28-2021 Hematocrit (Bld) [Volume fraction] 34.9 % 40-54 [facility] Work Phone: Laboratory - Chemistry and C hemistry - challengeon 12-28-2021 CO2 [Moles/Vol] 30.0 mmol/L 21.0-32.0 [facility] Work Phone: Urea nitrogen/Creatinine [Mass ratio] 33.7 mg/mg 10-20 [facility] Work Phone: Laboratory - Hematology and Cell countson 12-28-2021 Erythrocyte distribution width (RBC) [Entitic vol] 49.1 fL 35.1-43.9 [facility] Work Phone: Erythrocyte distribution width (RBC) [Ratio] 16.5 % 11.6-14.6 [facility] Work Phone: MCH (RBC) [Entitic mass] 26.5 pg 27.0-32.0 [facility] Work Phone: MCHC Auto (RBC) [Mass/Vol]on 12-28-2021 MCHC (RBC) [Mass/Vol] 32.1 g/dL 32-36 [facility] Work Phone: No Panel Informationon 12-28 Estimated GFR (MDRD) Amer 174 mL/min >60 [facility] Work Phone: Comment on above: GFR Calc Estimated GFR (MDRD) Non-Af Amer 143 mL/min >60 [facility] Work Phone: Comment on above: Non- GFR Calc Platelets bldon 12-28-2021 Platelets (Bld) [#/Vol] 339 10*3/uL 150-450 [facility] Work Phone: Serum or plasma calcium oral urement (mass/volume)on 12-28-2021 Calcium [Mass/Vol] 8.6 mg/dL 8.5-10.1 [facility] Work Phone: Serum or plasma creatinine m easurement (mass/volume)on 12-28-2021 Creatinine [Mass/Vol] 0.59 mg/dL 0.70-1.30 [facility] Work Phone: Comment on above: The validity of the calculated GFR & GFRAA in patients over 70 years has not been determined. Clinical correlation is essential. Serum or plasma urea nitroge n measurement (mass/volume)on 12-28-2021 Urea nitrogen [Mass/Vol] 20 mg/dL 7-18 [facility] Work Phone: Thin prep Papanicolaou smear with manual screeningon 12-28-2021 Thin prep Papanicolaou smear with manual screening 5 5-15 [facility] Work Phone: CULTURE BLOODon 12-27-2021 Microscopic examination of blood, culture CULTURE BLOOD --> Status: F No growth at 5 days. Normal [facility] Comment on above: Performed By: #### C /BLD #### [facility] [address] [place] [address] Laboratory - Coagulationon 0 12-26-2021 INR Coag (Bld) [Relative time] 1.7 {INR} [facility] Work Phone: Comment on above: Critical Value > 4.0 Whole blood prothrombin time on 12-26-2021 PT Coag (Bld) [Time] 20.8 s 11.7-14.9 [facility] Work Phone: Basic Metabolic Panelon 12-05 Calcium [Mass/Vol] 8.8 mg/dL Normal 8.4-10.4 [facility] Comment on above: Performed By: #### C RP2, ESR, HEMDF, BMP3 ####[facility] [id number] [place] [address] Anion gap [Moles/Vol] 6 mmol/L Normal 3-13 [facility] Comment on above: Performed By: #### C RP2, ESR, HEMDF, BMP3 ####[facility] Center[facility]MyGuest[address] [place] [address] CO2 [Moles/Vol] 27 mmol/L Normal 22-30 [facility] Comment on above: Performed By: #### C RP2, ESR, HEMDF, BMP3 ####[facility] [address] [place] [address] Glucose [Mass/Vol] 100 mg/dL Normal 70-100 [facility] Comment on above: Performed By: #### C RP2, ESR, HEMDF, BMP3 ####[employer] [place] [address] Urea nitrogen [Mass/Vol] 18 mg/dL High 7-17 [facility] Comment on above: Performed By: #### C RP2, ESR, HEMDF, BMP3 ####[facility] [address] [place] [address] Creatinine [Mass/Vol] 0.73 mg/dL Normal 0.52-1.25 [facility] Comment on above: Performed By: #### C RP2, ESR, HEMDF, BMP3 ####[facility] [id number] [place], [place] eGFR OTHER > 90.0 Normal >60 [facility] Comment on above: Result Comment: KDIG [...] By: #### C RP2, ESR, HEMDF, BMP3 ####[facility] [id number] [place], [place] GFR/1.73 sq M.predicted among blacks MDRD (S/P/Bld) [Vol rate/Area] mL/min/{1.73_m2} Normal >60 [facility] Comment on above: Performed By: #### C RP2, ESR, HEMDF, BMP3 ####[facility] [address] [place], [place] Potassium [Moles/Vol] 3.7 mmol/L Normal 3.5-5.1 [facility] Comment on above: Performed By: #### C RP2, ESR, HEMDF, BMP3 ####[facility] [id number] [place], [place] Chloride [Moles/Vol] 106 mmol/L Normal 98-107 [facility] Comment on above: Performed By: #### C RP2, ESR, HEMDF, BMP3 ####[facility] [address] [place], [place] Sodium [Moles/Vol] 139 mmol/L Normal 135-145 [facility] [employer] [facility] Comment on above: Performed By: #### C RP2, ESR, HEMDF, BMP3 ####[facility] [address] [place] [address] Anion gap [Moles/Vol] 6 mmol/L 3 - 13 mmol/L [facility] Calcium [Mass/Vol] 8.8 mg/dL 8.4 - 10. 4 mg/dL [facility] Chloride [Moles/Vol] 106 mmol/L 98 - 10 7 mmol/L [facility] CO2 [Moles/Vol] 27 mmol/L 22 - 30 mmol/L [facility] Creatinine [Mass/Vol] 0.73 mg/dL 0.52 - 1.25 mg/dL [facility] eGFR mL/min 60 - P INF mL/min [facility] EGFR IF NonAfrican Salvadorean mL/min 60 - PINF mL/min [facility] Comment on above: KDIGO guidelines [...] 2021 Basophil percentage 25-50 SEEN /hpf 0-5 [facility] Work Phone: Chloride [Moles/Vol] 106 mmol/L 98-[address] [facility] [address] [facility] Work Phone: Glucose [Mass/Vol] 93 mg/dL 74-106 [facility] Work Phone: Potassium [Moles/Vol] 3.5 mmol/L 3.5-5.1 [facility] Work Phone: Sodium [Moles/Vol] 140 mmol/L 136-145 [facility] Work Phone: WBC (Bld) [#/Vol] 9.6 10*3/uL 4.4-11.0 [facility] Work Phone: Bilirubin Test strip Ql (U)o n 12-22-2021 Bilirubin Ql (U) Negative Negative [facility] Work Phone: Blood erythrocytes count (nu mber/volume)on 12-22-2021 RBC (Bld) [#/Vol] 4.34 10*6/uL 4.6-6.2 [facility] Work Phone: Blood hemoglobin measurement (mass/volume)on 12-22-2021 Hemoglobin (Bld) [Mass/Vol] 11.5 g/dL 13.0-16.5 [facility] Work Phone: Blood platelet mean volumeon 12-22-2021 Platelet mean volume (Bld) [Entitic vol] 10.8 fL 6.2-12.0 [facility] Work Phone: C-Reactive Proteinon 022 CRP [Mass/Vol] 27.2 mg/L High 0.0-9.9 [facility] [address] Comment on above: Result Comment: . Performed By: #### C RP2, ESR, HEMDF, BMP3 ####[employer] [id number] [place] [address] CRP [Mass/Vol] 27.2 mg/L High 0 - 9.9 mg/L [facility] Comment on above: . CBC with Auto [...] - 10.7 10*3/uL [facility] Test Performed by [address] [place] [address] [facility], Flu A/B, and RSV C omboon 12-22-2021 Influenza A by PCR Not detected [facility] Influenza B by PCR Not detected [facility] A RSV PCR Not Detected. Expected Result: Not Detected _ Method: Real-time, RT-PCR This assay was developed by [employer] and distributed under an Emergency Use Authorization (EUA) granted by the FDA for the qualitative detection of nucleic acids from SARS-CoV-2, Influenza A, Influenza B, and Respiratory Syncytial Virus. Provider and patient fact sheets can be found at https://www.fda.gov/media /976211/download and https://www.fda.gov/media /157573/download. [facility] SARS-CoV-2 (COVID-19) RNA MEGAN+probe Ql (Unsp spec) Not detected [facility] Test Performed by [address] [address] [facility] Foot Complete 3+ Views Le f[place] 12-22-2021 CR Foot Complete 3+ Views Left Patient Name: ANDREW SIFUENTES Diagnostic Radiology ACCESSION EXAM DATE/TIME PROCEDURE ORDERING PROVIDER [id number] 12/22/2021 00:09 EDT CR Foot Complete 3+ SANDY HIDALGO JOHN M Views Left CPT code 15412 Reason For Exam (CR Foot Complete 3+ [...] Transcribed Date and Time: 12/22/2021 0:21 Normal [facility] Calcium oxalate crystals det ection in urine sediment by light microscopyon 12-22-2021 Calcium oxalate crystals LM Ql (Urine sed) 1+ /hpf [facility] Work Phone: Determination of erythrocyte mean corpuscular volume (MCV)on 12-22-2021 MCV (RBC) [Entitic vol] 84.3 fL 80-94 [facility] Work Phone: ED Provider Noteon 2 [...] leg for a while. According to EMS fpc staff completed x-ray of the lower extremity and there was concern for osteomyelitis hence transferring patient to the hospital. Patient states this time the wounds on the left lower extremity for extended period of time. He denies fevers or chills. Patient states fpc staff have been taking care of the wound for him. Focused exam: Blood pressure 108/67, pulse 77, temperature 97.9 ?F (36.6 ?C), temperature source Oral, resp. rate 16, height 5' 9 (1.753 m), weight 79.4 kg (175 lb), SpO2 96 %. Pai-[id number] in no acute distress. Alert and oriented [...] are mis-transcribed.) Sharon Olivia MD Acute Care [facility] Sharon Olivia MD 12/22/21 0305 [facility] ED Provider Note [facility] EMERGENCY DEPT EMERGENCY DEPARTMENT ENCOUNTER Pt Name: Andrew Sifuentes Birthdate 1950 Date of evaluation: 12/21/2021 Provider: SANIA Lou CHIEF COMPLAINT Chief Complaint Patient presents with Osteomyelitis Patient from [facility], [facility] did xrays on left lower leg and and have concerns for possible osteomyelitis A&Ox2 to self and place, stated year 2022 [facility] Miss martini HISTORY OF PRESENT ILLNESS (Location/Symptom, Timing/Onset, Context/Setting, Quality,Duration, Modifying Factors, Severity) Note limiting factors. HPI I have seen this patient With supervising physician Does this patient come from an ECF, SNF, Rehab, Half-Way or other Congregate setting: no (If yes [...] Hydrocephalus, adult (HCC) Kidney stone Neuropathy [employer] (ventriculoperitoneal) shunt status SURGICAL HISTORY Past Surgical [...] use: No Sexual activity: Not Currently SCREENINGS [place] Coma Scale Eye Opening: Spontaneous Best Verbal [...] soft. Tenderness: (more content not included)... Normal [facility] Hematocrit Auto (Bld) [Volum e fraction]on 12-22-2021 Hematocrit (Bld) [Volume fraction] 36.6 % 40-54 [facility] Work Phone: Hemogram w/ Autodiffon 12-22 Abs Baso Cnt 0.1 10*3/uL Normal 0.0-0.2 [facility] Comment on above: Performed By: #### C RP2, ESR, HEMDF, BMP3 ####[facility] [place] [address] Abs Neutrophile Cnt 5.9 10*3/uL Normal 1.8-7.0 [facility] Comment on above: Performed By: #### C RP2, ESR, HEMDF, BMP3 ####[address] Basophils/100 WBC (Bld) 0.7 % Normal 0.0-2.0 [facility] Comment on above: Performed By: #### C RP2, ESR, HEMDF, BMP3 ####[address] Eosinophils (Bld) [#/Vol] 0.2 10*3/uL Normal 0.0-0.5 [facility] Comment on above: Performed By: #### C RP2, ESR, HEMDF, BMP3 ####[address] Eosinophils/100 WBC (Bld) 2.3 % Normal 1.0-6.0 [facility] Comment on above: Performed By: #### C RP2, ESR, HEMDF, BMP3 ####[address] Erythrocyte distribution width (RBC) [Ratio] 17.5 % High 11.5-14.5 [facility] Comment on above: Performed By: #### C RP2, ESR, HEMDF, BMP3 ####[address] Granulocytes/100 WBC (Bld) 57.8 % Normal 40.0-80.0 [facility] Comment on above: Performed By: #### C RP2, ESR, HEMDF, BMP3 ####[address] Hematocrit (Bld) [Volume fraction] 33.3 % Low 40.0-52.0 [facility] Comment on above: Performed By: #### C RP2, ESR, HEMDF, BMP3 ####[address] Hemoglobin (Bld) [Mass/Vol] 11.0 g/dL Low 13.0-18.0 [facility] Comment on above: Performed By: #### C RP2, ESR, HEMDF, BMP3 ####[id number] [place], [place] Lymphocytes (Bld) [#/Vol] 3.3 10*3/uL Normal 1.0-4.3 [facility] Comment on above: Performed By: #### C RP2, ESR, HEMDF, BMP3 ####[id number] [place], [place] Lymphocytes/100 WBC (Bld) 33.0 % Normal 20.0-40.0 [facility] Comment on above: Performed By: #### C RP2, ESR, HEMDF, BMP3 ####[address] MCH (RBC) [Entitic mass] 26.5 pg Normal 26.0-34.0 [facility] Comment on above: Performed By: #### C RP2, ESR, HEMDF, BMP3 ####[id number] [place], [place] MCHC 33.1 % Normal 32.0-36.0 [facility] Comment on above: Performed By: #### C RP2, ESR, HEMDF, BMP3 ####[id number] [place], [place] MCV (RBC) [Entitic vol] 80.2 fL Normal 80.0-98.0 [facility] Comment on above: Performed By: #### C RP2, ESR, HEMDF, BMP3 ####[id number] [place], [place] Monocytes (Bld) [#/Vol] 0.6 10*3/uL Normal 0.0-0.8 [facility] Comment on above: Performed By: #### C RP2, ESR, HEMDF, BMP3 ####[id number] [place], [place] Monocytes/100 WBC (Bld) 6.2 % Normal 2.0-10.0 [facility] Comment on above: Performed By: #### C RP2, ESR, HEMDF, BMP3 ####[address] [id number] . [place], [place] Platelet mean volume (Bld) [Entitic vol] 8.0 fL Normal 7.4-12.4 [facility] Comment on above: Result Comment: MPV is a calculated measurement using platelet volume ratio. Performed By: #### C RP2, ESR, HEMDF, BMP3 ####[id number] [place], [place] Platelets (Bld) [#/Vol] 368 10*3/uL Normal 140-440 [facility] Comment on above: Performed By: #### C RP2, ESR, HEMDF, BMP3 ####[id number] [place], [place] RBC (Bld) [#/Vol] 4.15 10*6/uL Low 4.40-5.90 [facility] Comment on above: Performed By: #### C RP2, ESR, HEMDF, BMP3 ####[facility] [id number] [place], [place] WBC (Bld) [#/Vol] 10.1 10*3/uL Normal 3.6-10.7 [facility] Comment on above: Performed By: #### C RP2, ESR, HEMDF, BMP3 ####[facility] [id number] [place], [place] Ketones Test strip Ql (U)on 12-22-2021 Ketones Ql (U) Negative Negative [facility] Work Phone: Laboratory - Chemistry and C hemistry - challengeon 12-22-2021 CO2 [Moles/Vol] 27.0 mmol/L 21.0-32.0 [facility] Work Phone: Urea nitrogen/Creatinine [Mass ratio] 22.5 mg/mg 10-20 [facility] Work Phone: Laboratory - Hematology and Cell countson 12-22-2021 Erythrocyte distribution width (RBC) [Entitic vol] 49.1 fL 35.1-43.9 [facility] Work Phone: Erythrocyte distribution width (RBC) [Ratio] 16.1 % 11.6-14.6 [facility] Work Phone: MCH (RBC) [Entitic mass] 26.5 pg 27.0-32.0 [facility] Work Phone: MCHC Auto (RBC) [Mass/Vol]on 12-22-2021 MCHC (RBC) [Mass/Vol] 31.4 g/dL 32-36 [facility] Work Phone: Mucus LM Ql (Urine sed)on Mucus Ql (Urine sed) 0 SEEN /hpf [facility] Work Phone: Nitrite Test strip Ql (U)on 12-22-2021 Nitrite Ql (U) Positive Negative [facility] Work Phone: No Panel Informationon 12-22 Estimated GFR (MDRD) Amer 152 mL/min >60 [facility] Work Phone: Comment on above: GFR Calc Estimated GFR (MDRD) Non-Af Amer 125 mL/min >60 [facility] Work Phone: Comment on above: Non- GFR Calc Interpretation and review of laboratory results Abnormal [facility] Test Performed by [facility], [address] [place] [id number] [facility] Platelets bldon 12-22-2021 Platelets (Bld) [#/Vol] 317 10*3/uL 150-450 [facility] Work Phone: Protein Test strip Ql (U)on 12-22-2021 Protein Ql (U) 30 mg/dl Negative [facility] Work Phone: SARS-CoV-2, Flu A/B and RSVo n 12-22-2021 SARS-CoV-2 (COVID-19) RNA MEGAN+probe Ql (Unsp spec) SARS-CoV-2 --> Status: F Not Detected. Flu A PCR --> Status: F Not Detected. Flu B PCR --> Status: F Not Detected. RSV PCR --> Status: F Not Detected. Expected Result: Not Detected _ Method: Real-time, RT-PCR This assay was developed by [employer] and distributed under an Emergency Use Authorization (EUA) granted by the FDA for the qualitative detection of nucleic acids from SARS-CoV-2, Influenza A, Influenza B, and Respiratory Syncytial Virus. Provider and patient fact sheets can be found at https://www.fda.gov/media /931746/download and https://www.fda.gov/media /475681/download. Expected Result: Not Detected _ Method: Real-time, RT-PCR This assay was developed by [employer] and distributed under an Emergency Use Authorization (EUA) granted by the FDA for the qualitative detection of nucleic acids from SARS-CoV-2, Influenza A, Influenza B, and Respiratory Syncytial Virus. Provider and patient fact sheets can be found at https://www.Tendril.gov/media /428907/download and https://www.[employer].gov/media /611201/download. Normal [facility] Comment on above: Performed By: #### C VFLR ####[id number] [place] [address], [id number] Sed Rateon 12-22-2021 Sed Rate 48 mm/h High 0-10 [facility] Comment on above: Performed By: #### C RP2, ESR, HEMDF, BMP3 ####[id number] [place] [address] Sedimentation Rateon 022 Interpretation and review of laboratory results Abnormal [facility] Sed Rate 48 mm/h High 0 - 10 mm/h [facility] Test Performed by [facility], [address] [place] [address] [facility] Serum or plasma calcium oral urement (mass/volume)on 12-22-2021 Calcium [Mass/Vol] 8.6 mg/dL 8.5-10.1 [facility] Work Phone: Serum or plasma creatinine m easurement (mass/volume)on 12-22-2021 Creatinine [Mass/Vol] 0.67 mg/dL 0.70-1.30 [facility] Work Phone: Comment on above: The validity of the calculated GFR & GFRAA in patients over 70 years has not been determined. Clinical correlation is essential. Serum or plasma urea nitroge n measurement (mass/volume)on 12-22-2021 Urea nitrogen [Mass/Vol] 15 mg/dL - [facility] Work Phone: Squamous epithelial cells de tection in urine sediment by light microscopyon 12-22-2021 Epithelial cells.squamous LM Ql (Urine sed) 0-5 SEEN /hpf 0-5 [facility] Work Phone: Thin prep Papanicolaou smear with manual screeningon 12-22-2021 Thin prep Papanicolaou smear with manual screening 7 -15 [facility] Work Phone: Urine blood detectionon 12-05 RBC Ql (U) 150 /ul Negative [facility] Work Phone: RBC Ql (U) 10-25 SEEN /hpf 0-5 [facility] Work Phone: Urine clarityon 12-22-2021 Clarity (U) Sl. Cloudy Clear [facility] Work Phone: Urine color determinationon 12-22-2021 Color (U) Yellow Yellow [facility] Work Phone: Urine glucose detectionon Glucose Ql (U) Normal mg/dl Normal [facility] Work Phone: Urine leukocyte esterase det ection by dipstickon 12-22-2021 Leukocyte esterase Test strip Ql (U) 500 /ul Negative [facility] Work Phone: Urine pHon 12-22-2021 pH (U) 6.0 [pH] 5.0 - 8.0 [facility] Work Phone: Urine sediment bacteria coun t by microscopy (number/high power field)on 12-22-2021 Bacteria LM.HPF (Urine sed) [#/Area] 2 /[HPF] None Seen [facility] Work Phone: Urine specific gravity measu rementon 12-22-2021 Specific gravity (U) [Rel density] 1.020 1.002-1.030 [facility] Work Phone: Urobilinogen Auto test strip Ql (U)on 12-22-2021 Urobilinogen Ql (U) Normal mg/dl Normal [facility] Work Phone: XR FOOT LEFT (MIN 3 VIEWS)on 12-22-2021 Patient Name: ANDREW SIFUENTES Diagnostic Radiology ACCESSION EXAM DATE/TIME PROCEDURE ORDERING PROVIDER [id number] 12/22/2021 00:09 EDT CR Foot Complete 3+ SANDY HIDALGO JOHN M Views Left CPT code 41379 Reason For Exam (CR Foot Complete 3+ [...] JEFFREY Transcribed Date and Time: 12/22/2021 0:21 [facility] Albert Solano MD - 12/22/2021 Patient Name: ANDREW SIFUENTES Diagnostic Radiology ACCESSION EXAM DATE/TIME PROCEDURE ORDERING PROVIDER [id number] 12/22/2021 00:09 EDT CR Foot Complete 3+ SANDY HIDALGO JOHN M Views Left CPT code 77374 Reason For Exam (CR Foot Complete 3+ [...] Transcribed Date and Time: 12/22/2021 0:21 [facility] Work Phone: Radiology Study observation (narrative) [facility] Work Phone: XR FOOT LEFT (MIN 3 VIEWS)Or dered By: Albert Solano on 12-22-2021 [facility] Work Phone: Basophil percentageon 2021 Chloride [Moles/Vol] 103 mmol/L 98-[address] [facility] [address] [facility] Work Phone: Glucose [Mass/Vol] 92 mg/dL 74-106 [facility] Work Phone: Potassium [Moles/Vol] 3.5 mmol/L 3.5-5.1 [facility] Work Phone: Sodium [Moles/Vol] 138 mmol/L 136-145 [facility] Work Phone: WBC (Bld) [#/Vol] 11.2 10*3/uL 4.4-11.0 [facility] Work Phone: Blood erythrocytes count (nu mber/volume)on 12-19-2021 RBC (Bld) [#/Vol] 4.50 10*6/uL 4.6-6.2 [facility] Work Phone: Blood hemoglobin measurement (mass/volume)on 12-19-2021 Hemoglobin (Bld) [Mass/Vol] 12.2 g/dL 13.0-16.5 [facility] Work Phone: Blood platelet mean volumeon 12-19-2021 Platelet mean volume (Bld) [Entitic vol] 11.3 fL 6.2-12.0 [facility] Work Phone: Determination of erythrocyte mean corpuscular volume (MCV)on 12-19-2021 MCV (RBC) [Entitic vol] 85.6 fL 80-94 [facility] Work Phone: Hematocrit Auto (Bld) [Volum e fraction]on 12-19-2021 Hematocrit (Bld) [Volume fraction] 38.5 % 40-54 [facility] Work Phone: Laboratory - Chemistry and C hemistry - challengeon 12-19-2021 CO2 [Moles/Vol] 30.0 mmol/L 21.0-32.0 [facility] Work Phone: Urea nitrogen/Creatinine [Mass ratio] 27.1 mg/mg 10-20 [facility] Work Phone: Laboratory - Hematology and Cell countson 12-19-2021 Erythrocyte distribution width (RBC) [Entitic vol] 50.5 fL 35.1-43.9 [facility] Work Phone: Erythrocyte distribution width (RBC) [Ratio] 16.0 % 11.6-14.6 [facility] Work Phone: MCH (RBC) [Entitic mass] 27.1 pg 27.0-32.0 [facility] Work Phone: MCHC Auto (RBC) [Mass/Vol]on 12-19-2021 MCHC (RBC) [Mass/Vol] 31.7 g/dL 32-36 [facility] Work Phone: No Panel Informationon 12-19 Estimated GFR (MDRD) Amer 153 mL/min >60 [facility] Work Phone: Comment on above: GFR Calc Estimated GFR (MDRD) Non-Af Amer 126 mL/min >60 [facility] Work Phone: Comment on above: Non- GFR Calc Platelets bldon 12-19-2021 Platelets (Bld) [#/Vol] 363 10*3/uL 150-450 [facility] Work Phone: Serum or plasma calcium oral urement (mass/volume)on 12-19-2021 Calcium [Mass/Vol] 9.5 mg/dL 8.5-10.1 [facility] Work Phone: Serum or plasma creatinine m easurement (mass/volume)on 12-19-2021 Creatinine [Mass/Vol] 0.66 mg/dL 0.70-1.30 [facility] Work Phone: Comment on above: The validity of the calculated GFR & GFRAA in patients over 70 years has not been determined. Clinical correlation is essential. Serum or plasma urea nitroge n measurement (mass/volume)on 12-19-2021 Urea nitrogen [Mass/Vol] 18 mg/dL 7-18 [facility] Work Phone: Thin prep Papanicolaou smear with manual screeningon 12-19-2021 Thin prep Papanicolaou smear with manual screening 5 5-15 [facility] Work Phone: Laboratory - Coagulationon 0 12-12-2021 INR Coag (Bld) [Relative time] 2.0 {INR} [facility] Work Phone: Comment on above: Critical Value > 4.0 Whole blood prothrombin time on 12-12-2021 PT Coag (Bld) [Time] 23.9 s 11.7-14.9 [facility] Work Phone: ANES POSTPROC EVALon 022 ANES POSTPROC EVAL Normal [facility] Laboratory - Coagulationon 0 12-08-2021 INR Coag (Bld) [Relative time] 1.8 {INR} [facility] Work Phone: Comment on above: Critical Value > 4.0 Whole blood prothrombin time on 12-08-2021 PT Coag (Bld) [Time] 21.0 s 11.7-14.9 [facility] Work Phone: Absolute lymphocyte counton 12-05-2021 Lymphocytes Auto (Unsp spec) [#/Vol] 2.97 10*3/uL 0.83-4.51 [facility] Work Phone: [phone] Basophil percentageon 2021 Basophils/100 WBC (Bld) 0.6 % 0-1 [facility] Work Phone: [phone] Chloride [Moles/Vol] 106 mmol/L 98-107 [facility] Work Phone: Eosinophils/100 WBC (Bld) 2.3 % 0-5 [facility] Work Phone: [phone] Glucose [Mass/Vol] 107 mg/dL 74-106 [facility] Work Phone: Comment on above: Fasting Glucose resu lt from 100 to 125 mg/dL suggests IMPAIRED HOMEOSTASIS per A.D.A. criteria. Neutrophils (Bld) [#/Vol] 5.6 10*3/uL 2.0-7.7 [facility] Work Phone: Neutrophils/100 WBC (Bld) 60.2 % 47-70 [facility] Work Phone: Potassium [Moles/Vol] 3.4 mmol/L 3.5-5.1 [facility] Work Phone: Sodium [Moles/Vol] 139 mmol/L 136-145 [facility] Work Phone: [phone] WBC (Bld) [#/Vol] 9.3 10*3/uL 4.4-11.0 [facility] Work Phone: Blood erythrocytes count (nu mber/volume)on 12-05-2021 RBC (Bld) [#/Vol] 4.49 10*6/uL 4.6-6.2 [facility] Work Phone: Blood hemoglobin measurement (mass/volume)on 12-05-2021 Hemoglobin (Bld) [Mass/Vol] 12.1 g/dL 13.0-16.5 [facility] Work Phone: Blood lymphocytes/100 leukoc yteson 12-05-2021 Lymphocytes/100 WBC (Bld) 32.0 % 19-41 [facility] Work Phone: Blood monocytes/100 leukocyt eson 12-05-2021 Monocytes/100 WBC (Bld) 4.7 % 0-10 [facility] Work Phone: Blood platelet mean volumeon 12-05-2021 Platelet mean volume (Bld) [Entitic vol] 10.8 fL 6.2-12.0 [facility] Work Phone: Determination of erythrocyte mean corpuscular volume (MCV)on 12-05-2021 MCV (RBC) [Entitic vol] 84.9 fL 80-94 [facility] Work Phone: Hematocrit Auto (Bld) [Volum e fraction]on 12-05-2021 Hematocrit (Bld) [Volume fraction] 38.1 % 40-54 [facility] Work Phone: INR in Blood by Coagulation assayon 12-05-2021 INR Coag (Bld) [Relative time] 1.8 {INR} [facility] Work Phone: Laboratory - Chemistry and C hemistry - challengeon 12-05-2021 CO2 [Moles/Vol] 29.0 mmol/L 21.0-32.0 [facility] Work Phone: Urea nitrogen/Creatinine [Mass ratio] 25.4 mg/mg 10-20 [facility] Work Phone: Laboratory - Coagulationon 0 12-05-2021 PT Coag (PPP) [Time] 20.5 s 11.7-14.9 [facility] Work Phone: Laboratory - Hematology and Cell countson 12-05-2021 Erythrocyte distribution width (RBC) [Entitic vol] 48.5 fL 35.1-43.9 [facility] Work Phone: Erythrocyte distribution width (RBC) [Ratio] 15.7 % 11.6-14.6 [facility] Work Phone: Immature granulocytes/100 WBC (Bld) 0.200 % 0.0-0.9 [facility] Work Phone: Comment on above: IG% - Immature Granu locytes (promyelocytes, myelocytes and metamyelocytes) > 1% indicates that a LEFT SHIFT is Present. MCH (RBC) [Entitic mass] 26.9 pg 27.0-32.0 [facility] Work Phone: Nucleated RBC/100 WBC (Bld) [Ratio] 0 % 0-5 [facility] Work Phone: MCHC Auto (RBC) [Mass/Vol]on 12-05-2021 MCHC (RBC) [Mass/Vol] 31.8 g/dL 32-36 [facility] Work Phone: No Panel Informationon 12-05 Estimated GFR (MDRD) Amer 133 mL/min >60 [facility] Work Phone: Comment on above: GFR Calc Estimated GFR (MDRD) Non-Af Amer 110 mL/min >60 [facility] Work Phone: Comment on above: Non- GFR Calc Platelets bldon 12-05-2021 Platelets (Bld) [#/Vol] 363 10*3/uL 150-450 [facility] Work Phone: Serum or plasma calcium oral urement (mass/volume)on 12-05-2021 Calcium [Mass/Vol] 9.4 mg/dL 8.5-10.1 [facility] Work Phone: Serum or plasma creatinine m easurement (mass/volume)on 12-05-2021 Creatinine [Mass/Vol] 0.75 mg/dL 0.70-1.30 [facility] Work Phone: Comment on above: The validity of the calculated GFR & GFRAA in patients over 70 years has not been determined. Clinical correlation is essential. Serum or plasma urea nitroge n measurement (mass/volume)on 12-05-2021 Urea nitrogen [Mass/Vol] 19 mg/dL 7-18 [facility] Work Phone: Thin prep Papanicolaou smear with manual screeningon 12-05-2021 Thin prep Papanicolaou smear with manual screening 4 5-15 [facility] Work Phone: Basophil percentageon 2021 Basophil percentage 0 SEEN /hpf 0-5 [facility] Work Phone: Chloride [Moles/Vol] 104 mmol/L 98-107 [facility] Work Phone: Glucose [Mass/Vol] 90 mg/dL 74-106 [facility] Work Phone: Potassium [Moles/Vol] 3.7 mmol/L 3.5-5.1 [facility] Work Phone: Comment on above: Slight Hemolysis, Re sult may be falsely increased. Sodium [Moles/Vol] 138 mmol/L 136-145 [facility] Work Phone: WBC (Bld) [#/Vol] 10.7 10*3/uL 4.4-11.0 [facility] Work Phone: Bilirubin Test strip Ql (U)o n 12-01-2021 Bilirubin Ql (U) Negative Negative [facility] Work Phone: Blood erythrocytes count (nu mber/volume)on 12-01-2021 RBC (Bld) [#/Vol] 4.33 10*6/uL 4.6-6.2 [facility] Work Phone: Blood hemoglobin measurement (mass/volume)on 12-01-2021 Hemoglobin (Bld) [Mass/Vol] 11.6 g/dL 13.0-16.5 [facility] Work Phone: Blood platelet mean volumeon 12-01-2021 Platelet mean volume (Bld) [Entitic vol] 11.2 fL 6.2-12.0 [facility] Work Phone: Determination of erythrocyte mean corpuscular volume (MCV)on 12-01-2021 MCV (RBC) [Entitic vol] 85.2 fL 80-94 [facility] Work Phone: Hematocrit Auto (Bld) [Volum e fraction]on 12-01-2021 Hematocrit (Bld) [Volume fraction] 36.9 % 40-54 [facility] Work Phone: Ketones Test strip Ql (U)on 12-01-2021 Ketones Ql (U) Negative Negative [facility] Work Phone: Laboratory - Chemistry and C hemistry - challengeon 12-01-2021 CO2 [Moles/Vol] 27.0 mmol/L 21.0-32.0 [facility] Work Phone: Urea nitrogen/Creatinine [Mass ratio] 24.0 mg/mg 10-20 [facility] Work Phone: Laboratory - Coagulationon 0 12-01-2021 INR Coag (Bld) [Relative time] 1.6 {INR} [facility] Work Phone: Comment on above: Critical Value > 4.0 Laboratory - Hematology and Cell countson 12-01-2021 Erythrocyte distribution width (RBC) [Entitic vol] 47.9 fL 35.1-43.9 [facility] Work Phone: Erythrocyte distribution width (RBC) [Ratio] 15.5 % 11.6-14.6 [facility] Work Phone: MCH (RBC) [Entitic mass] 26.8 pg 27.0-32.0 [facility] Work Phone: MCHC Auto (RBC) [Mass/Vol]on 12-01-2021 MCHC (RBC) [Mass/Vol] 31.4 g/dL 32-36 [facility] Work Phone: Mucus LM Ql (Urine sed)on Mucus Ql (Urine sed) 0 SEEN /hpf [facility] Work Phone: Nitrite Test strip Ql (U)on 12-01-2021 Nitrite Ql (U) Negative Negative [facility] Work Phone: No Panel Informationon 12-01 Estimated GFR (MDRD) Amer 133 mL/min >60 [facility] Work Phone: Comment on above: GFR Calc Estimated GFR (MDRD) Non-Af Amer 110 mL/min >60 [facility] Work Phone: Comment on above: Non- GFR Calc Platelets bldon 12-01-2021 Platelets (Bld) [#/Vol] 336 10*3/uL 150-450 [facility] Work Phone: Protein Test strip Ql (U)on 12-01-2021 Protein Ql (U) 30 mg/dl Negative [facility] Work Phone: Serum or plasma calcium oral urement (mass/volume)on 12-01-2021 Calcium [Mass/Vol] 9.4 mg/dL 8.5-10.1 [facility] Work Phone: Serum or plasma creatinine m easurement (mass/volume)on 12-01-2021 Creatinine [Mass/Vol] 0.75 mg/dL 0.70-1.30 [facility] Work Phone: Comment on above: The validity of the calculated GFR & GFRAA in patients over 70 years has not been determined. Clinical correlation is essential. Serum or plasma urea nitroge n measurement (mass/volume)on 12-01-2021 Urea nitrogen [Mass/Vol] 18 mg/dL 7-18 [facility] Work Phone: Squamous epithelial cells de tection in urine sediment by light microscopyon 12-01-2021 Epithelial cells.squamous LM Ql (Urine sed) 0-5 SEEN /hpf 0-5 [facility] Work Phone: Thin prep Papanicolaou smear with manual screeningon 12-01-2021 Thin prep Papanicolaou smear with manual screening 7 5-15 [facility] Work Phone: Urine blood detectionon 11-05 RBC Ql (U) Negative Negative [facility] Work Phone: RBC Ql (U) 0 SEEN /hpf 0-5 [facility] Work Phone: Urine clarityon 12-01-2021 Clarity (U) Clear Clear [facility] Work Phone: Urine color determinationon 12-01-2021 Color (U) Yellow Yellow [facility] Work Phone: Urine glucose detectionon Glucose Ql (U) 50 mg/dl Normal [facility] Work Phone: Urine leukocyte esterase det ection by dipstickon 12-01-2021 Leukocyte esterase Test strip Ql (U) Negative Negative [facility] Work Phone: Urine pHon 12-01-2021 pH (U) 6.0 [pH] 5.0 - 8.0 [facility] Work Phone: Urine sediment bacteria coun t by microscopy (number/high power field)on 12-01-2021 Bacteria LM.HPF (Urine sed) [#/Area] 0 /[HPF] None Seen [facility] Work Phone: Urine sediment yeast count b y microscopy (number/high powered field)on 12-01-2021 Yeast LM.HPF (Urine sed) [#/Area] 2 /[HPF] None Seen [facility] Work Phone: Urine specific gravity measu rementon 12-01-2021 Specific gravity (U) [Rel density] 1.010 1.002-1.030 [facility] Work Phone: Urobilinogen Auto test strip Ql (U)on 12-01-2021 Urobilinogen Ql (U) Normal mg/dl Normal [facility] Work Phone: Whole blood prothrombin time on 12-01-2021 PT Coag (Bld) [Time] 19.8 s 11.7-14.9 [facility] Work Phone: Laboratory - Coagulationon 0 11-28-2021 INR Coag (Bld) [Relative time] 1.6 {INR} [facility] Work Phone: Comment on above: Critical Value > 4.0 Whole blood prothrombin time on 11-28-2021 PT Coag (Bld) [Time] 18.8 s 11.7-14.9 [facility] Work Phone: INR in Blood by Coagulation assayon 11-23-2021 INR Coag (Bld) [Relative time] 2.7 {INR} [facility] Work Phone: Laboratory - Coagulationon 0 11-23-2021 PT Coag (PPP) [Time] 28.0 s 11.7-14.9 [facility] Work Phone: Laboratory - Coagulationon 0 11-22-2021 INR Coag (Bld) [Relative time] 3.8 {INR} [facility] Work Phone: Comment on above: Critical Value > 4.0 Whole blood prothrombin time on 11-22-2021 PT Coag (Bld) [Time] 42.8 s 11.7-14.9 [facility] Work Phone: INR in Blood by Coagulation assayon 11-21-2021 INR Coag (Bld) [Relative time] 3.9 {INR} [facility] Work Phone: Laboratory - Coagulationon 0 11-21-2021 PT Coag (PPP) [Time] 37.7 s 11.7-14.9 [facility] Work Phone: Whole blood prothrombin time on 11-21-2021 PT Coag (Bld) [Time] 45.5 s 11.7-14.9 [facility] Work Phone: INR in Blood by Coagulation assayon 11-14-2021 INR Coag (Bld) [Relative time] 3.1 {INR} [facility] Work Phone: Laboratory - Coagulationon 0 11-14-2021 PT Coag (PPP) [Time] 31.4 s 11.7-14.9 [facility] Work Phone: Laboratory - Coagulationon 0 11-08-2021 INR Coag (Bld) [Relative time] 2.5 {INR} [facility] Work Phone: Comment on above: Critical Value > 4.0 Whole blood prothrombin time on 11-08-2021 PT Coag (Bld) [Time] 29.0 s 11.7-14.9 [facility] Work Phone: Basophil percentageon 2021 Chloride [Moles/Vol] 106 mmol/L 98-107 [facility] Work Phone: Glucose [Mass/Vol] 100 mg/dL 74-106 [facility] Work Phone: Comment on above: Fasting Glucose resu lt from 100 to 125 mg/dL suggests IMPAIRED HOMEOSTASIS per A.D.A. criteria. Potassium [Moles/Vol] 3.7 mmol/L 3.5-5.1 [facility] Work Phone: Sodium [Moles/Vol] 140 mmol/L 136-145 [facility] Work Phone: WBC (Bld) [#/Vol] 8.8 10*3/uL 4.4-11.0 [facility] Work Phone: Blood erythrocytes count (nu mber/volume)on 11-04-2021 RBC (Bld) [#/Vol] 4.05 10*6/uL 4.6-6.2 [facility] Work Phone: Blood hemoglobin measurement (mass/volume)on 11-04-2021 Hemoglobin (Bld) [Mass/Vol] 11.1 g/dL 13.0-16.5 [facility] Work Phone: Blood platelet mean volumeon 11-04-2021 Platelet mean volume (Bld) [Entitic vol] 10.8 fL 6.2-12.0 [facility] Work Phone: Determination of erythrocyte mean corpuscular volume (MCV)on 11-04-2021 MCV (RBC) [Entitic vol] 86.9 fL 80-94 [facility] Work Phone: Hematocrit Auto (Bld) [Volum e fraction]on 11-04-2021 Hematocrit (Bld) [Volume fraction] 35.2 % 40-54 [facility] Work Phone: INR in Blood by Coagulation assayon 11-04-2021 INR Coag (Bld) [Relative time] 1.8 {INR} [facility] Work Phone: Laboratory - Chemistry and C hemistry - challengeon 11-04-2021 CO2 [Moles/Vol] 26.0 mmol/L 21.0-32.0 [facility] Work Phone: Urea nitrogen/Creatinine [Mass ratio] 18.3 mg/mg 10-20 [facility] Work Phone: Laboratory - Coagulationon 0 11-04-2021 PT Coag (PPP) [Time] 20.4 s 11.7-14.9 [facility] Work Phone: Laboratory - Hematology and Cell countson 11-04-2021 Erythrocyte distribution width (RBC) [Entitic vol] 48.1 fL 35.1-43.9 [facility] Work Phone: Erythrocyte distribution width (RBC) [Ratio] 15.0 % 11.6-14.6 [facility] Work Phone: MCH (RBC) [Entitic mass] 27.4 pg 27.0-32.0 [facility] Work Phone: MCHC Auto (RBC) [Mass/Vol]on 11-04-2021 MCHC (RBC) [Mass/Vol] 31.5 g/dL 32-36 [facility] Work Phone: No Panel Informationon 11-04 D-Dimer Quantitative (PE/DVT) 0.56 FEU/ug/m 0.27-0.49 [facility] Work Phone: Comment on above: D-Dimer ELEVATED (>0 .49): Additional studies and clinicalassessments are indicated to conclude diagnosis of:Deep Vein Thrombosis (DVT) or Pulmonary Embolism (PE) Estimated GFR (MDRD) Amer 155 mL/min >60 [facility] Work Phone: Comment on above: GFR Calc Estimated GFR (MDRD) Non-Af Amer 128 mL/min >60 [facility] Work Phone: Comment on above: Non- GFR Calc Troponin I High Sensitivity 11 pg/mL 3.0-78.0 [facility] Work Phone: Comment on above: Please Note: New Fadumo t Units and Gender Specific Reference Ranges. For more information see Policy Stat Procedure [place] High Sensitivity Troponin (TNIH) and attachments. Platelets bldon 11-04-2021 Platelets (Bld) [#/Vol] 364 10*3/uL 150-450 [facility] Work Phone: Serum or plasma C reactive p rotein measurement (mass/volume)on 11-04-2021 CRP [Mass/Vol] 31.90 mg/L 0.0-3.0 [facility] Work Phone: Comment on above: C-Reactive Protein ( CRP) provides useful information for thediagnosis, therapy and monitoring of inflammatory processesand associated diseases. For the evaluation of Relative Riskfor Cardiovascular Disease, a High Sensitivity CRP (HSCRP)should be ordered. Serum or plasma calcium oral urement (mass/volume)on 11-04-2021 Calcium [Mass/Vol] 9.1 mg/dL 8.5-10.1 oste r [facility] Work Phone: Serum or plasma creatinine m easurement (mass/volume)on 11-04-2021 Creatinine [Mass/Vol] 0.66 mg/dL 0.70-1.30 [facility] Work Phone: Comment on above: The validity of the calculated GFR & GFRAA in patients over 70 years has not been determined. Clinical correlation is essential. Serum or plasma urea nitroge n measurement (mass/volume)on 11-04-2021 Urea nitrogen [Mass/Vol] 12 mg/dL 7-18 [facility] Work Phone: Thin prep Papanicolaou smear with manual screeningon 11-04-2021 Thin prep Papanicolaou smear with manual screening 8 5-15 [facility] Work Phone: Complete Urinalysison 2021 Appearance (U) Clear Normal Clear [facility] [employer] Comment on above: Result Comment: . Performed By: #### C UA2 ####[employer] [address] [place], [place] Bacteria Moderate Abnormal Negative [facility] Comment on above: Result Comment: . Performed By: #### C UA2 ####[employer] [address] [place], [place] Bilirubin,Urine Negative Normal Negative [facility] Comment on above: Result Comment: . Performed By: #### C UA2 ####[employer] [address] [place], [place] Cast, Hyaline Negative Normal Negative [facility] Comment on above: Result Comment: . Performed By: #### C UA2 ####[employer] [place], [place] Color (U) Yellow Normal Lt. Yellow [facility] Comment on above: Result Comment: . Performed By: #### C UA2 ####[employer] [address] [place], [place] Glucose Ql (U) Normal Normal Normal (<70) [facility] Comment on above: Result Comment: . Performed By: #### C UA2 ####[employer] [address] [employer] [place], [place] Ketone,Urine Negative Normal Negative [facility] [employer] [facility] Comment on above: Result Comment: . Performed By: #### C UA2 ####[employer] [address] [place], [place] Leukocytes,Urine Negative Normal Negative [facility] Comment on above: Result Comment: . Performed By: #### C UA2 ####[place] [id number] [place], [place] Mucous Threads Few Normal Negative [facility] Comment on above: Result Comment: . Performed By: #### C UA2 ####[id number] . [place], [place] Nitrites,Urine Negative Normal Negative [facility] Comment on above: Result Comment: . Performed By: #### C UA2 ####[address] [place], [place] Occult Blood,Urine 0.1 mg/dL Abnormal Negative [facility] Comment on above: Result Comment: . Performed By: #### C UA2 ####[address] pH,Urine 5.5 Normal 5.0-8.0 [facility] Comment on above: Result Comment: . Performed By: #### C UA2 ####[id number] [place], [place] Protein (U) [Mass/Vol] 10 mg/dL Abnormal Negative [facility] Comment on above: Result Comment: . Performed By: #### C UA2 ####[id number] . [place], [place] RBC, Urine 26 - 50 Abnormal 0-2 [facility] Comment on above: Result Comment: . Performed By: #### C UA2 ####[address] Specific [place],Urine 1.023 Normal 1.005 - 1.030 [facility] Comment on above: Result Comment: . Performed By: #### C UA2 ####[address] Squamous Epithelial Negative Normal 3-5 [facility] Comment on above: Result Comment: . Performed By: #### C UA2 ####[address] Urobilinogen,Urine Normal Normal Normal (0-1) [facility] Comment on above: Result Comment: . Performed By: #### C UA2 ####[facility] [place] [address] WBC, Urine 0 - 2 Normal 0-5 [facility] Comment on above: Result Comment: . Performed By: #### C UA2 ####[facility] [facility] [place] [address] Urinalysison 11-01-2021 Appearance (U) Clear Clear NA [...] Protein (U) [Mass/Vol] 10 mg/dL Abnormal Negative [facility] Comment on above: . RBC, UA 26-50 Abnormal 0 - 2 /[HPF] [facility] Comment on above: . Specific [place], Urine 1.023 [facility] Comment on above: . Squam Epithel, UA Negative 3 - 5 /[HPF] [facility] Comment on above: . Urobilinogen, Urine Normal Normal ( 0-1) mg/dL [facility] Comment on above: . WBC, UA 0-2 0 - 5 /[HPF] [facility] Comment on above: . Test Performed by [facility], [address] [place] [address] [facility] Basic Metabolic Panelon 10-06 Anion gap [Moles/Vol] 6 mmol/L Normal 3-13 [facility] Comment on above: Performed By: #### P T/AP, TROPN, BMP3, HEMDF #### [facility] [address] [place], [place] Calcium [Mass/Vol] 9.1 mg/dL Normal 8.4-10.4 [facility] Comment on above: Performed By: #### P T/AP, TROPN, BMP3, HEMDF #### [facility] [address] [place], [place] CO2 [Moles/Vol] 28 mmol/L Normal 22-30 [facility] Comment on above: Performed By: #### P T/AP, TROPN, BMP3, HEMDF #### [facility] [address] [place], [place] Glucose [Mass/Vol] 120 mg/dL High 70-100 [facility] Comment on above: Performed By: #### P T/AP, TROPN, BMP3, HEMDF #### [place] [address] [address] [place], [place] Urea nitrogen [Mass/Vol] 17 mg/dL Normal 7-17 [facility] Comment on above: Performed By: #### P T/AP, TROPN, BMP3, HEMDF #### [facility] [address] [place], [place] Creatinine [Mass/Vol] 0.65 mg/dL Normal 0.52-1.25 [facility] Comment on above: Performed By: #### P T/AP, TROPN, BMP3, HEMDF #### [facility] [address] [place], [place] eGFR OTHER > 90.0 Normal >60 [facility] Comment on above: Result Comment: KDIG [...] #### P T/AP, TROPN, BMP3, HEMDF #### [place] [address] [place], [place] GFR/1.73 sq M.predicted among blacks MDRD (S/P/Bld) [Vol rate/Area] mL/min/{1.73_m2} Normal >60 [facility] Comment on above: Performed By: #### P T/AP, TROPN, BMP3, HEMDF #### [place] [address] [place], [place] Potassium [Moles/Vol] 3.8 mmol/L Normal 3.5-5.1 [facility] Comment on above: Performed By: #### P T/AP, TROPN, BMP3, HEMDF #### [place] [address] [place], [place] Chloride [Moles/Vol] 101 mmol/L Normal 98-107 [facility] Comment on above: Performed By: #### P T/AP, TROPN, BMP3, HEMDF #### [place] [address] [address] [place], [place] Sodium [Moles/Vol] 134 mmol/L Low 135-145 [facility] Comment on above: Performed By: #### P T/AP, TROPN, BMP3, HEMDF #### [place] [address] [place], [place] Anion gap [Moles/Vol] 6 mmol/L 3 - 13 mmol/L [facility] Calcium [Mass/Vol] 9.1 mg/dL 8.4 - 10. 4 mg/dL [facility] Chloride [Moles/Vol] 101 mmol/L 98 - 10 7 mmol/L [facility] CO2 [Moles/Vol] 28 mmol/L 22 - 30 mmol/L [facility] Creatinine [Mass/Vol] 0.65 mg/dL 0.52 - 1.25 mg/dL [facility] EGFR IF NonAfrican Salvadorean >90.0 >60 mL/min [facility] Comment on above: KDIGO guidelines pro vide [...] [Mass/Vol] 17 mg/dL 7 - 17 mg/dL [facility] Test Performed by [facility], [address] [place] [id number] [place] [address] [facility] CBC with Auto Differentialon 10-31-2021 [...] 10.7 10*3/uL [facility] Test Performed by [address] LAB [facility] CR Abdomen APon 10-31-2021 CR Abdomen AP Patient Name: ANDREW SIFUENTES Diagnostic Radiology ACCESSION EXAM DATE/TIME PROCEDURE ORDERING PROVIDER [id number] 10/31/2021 20:36 EDT CR Abdomen AP [id number] -MYRON DURAN CPT code 58501 Reason For Exam (CR Abdomen AP) vp [...] Transcribed Date and Time: 10/31/2021 8:49 Normal [facility] CR Chest Portableon 11-01-19 22 CR Chest Portable Patient Name[id number] Diagnostic Radiology ACCESSION EXAM DATE/TIME PROCEDURE ORDERING PROVIDER [id number] 10/31/2021 20:36 EDT CR Chest Portable [id number] MRYON GALINDO CPT code 76749 Reason For Exam (CR Chest Portable) AMS [...] Transcribed Date and Time: 10/31/2021 8:49 Normal [facility] CT HEAD WO CONTRASTon 2021 Patient Name: ANDRWE SIFUENTES Computed Tomography ACCESSION EXAM DATE/TIME PROCEDURE ORDERING PROVIDER [id number] 10/31/2021 20:[address] Head or Brain w/o [id number] -MYRON DURAN Contrast CPT code 34811 Reason For Exam (CT Head or Brain w/o Contrast) AMS, previous [employer] shunt Report Examination: CT Head Clinical Information: AMS, previous [employer] shunt Comparison: 10/26/2021, MRI 10/27/2021 Findings: Serial [...] J Transcribed Date and Time: 10/31/2021 8:54 [facility] Alan Wong MD - 10/31/2021 Patient Name: AND[facility]W [facility]ENTES [id number] Computed Tomography ACCESSION EXAM DATE/TIME PROCEDURE ORDERING PROVIDER [id number] 10/31/2021 20:[address] Head or Brain w/o [id number] -MYRON DURAN Contrast CPT code 59724 Reason For Exam (CT Head or Brain w/o Contrast) AMS, previous [employer] shunt Report Examination: CT Head Clinical Information: AMS, previous [employer] shunt Comparison: 10/26/2021, MRI 10/27/2021 Findings: Serial [...] Brain w/o Contrast Patient Name: ANDREW [facility]IFUENTES [id number] Computed Tomography ACCESSION EXAM DATE/TIME PROCEDURE ORDERING PROVIDER [id number] 10/31/2021 20:[address] Head or Brain w/o [id number] -DURAN, MYRON Contrast CPT code 40804 Reason For Exam (CT Head or Brain w/o Contrast) AMS, previous [employer] shunt Report Examination: CT Head Clinical Information: AMS, previous [employer] shunt Comparison: 10/26/2021, MRI 10/27/2021 Findings: Serial [...] Transcribed Date and Time: 10/31/2021 8:54 Normal [facility] ED Provider Noteon ED Provider Note Emergency Department Encounter [facility] EMERGENCY DEPT Patient: Andrew Sifuentes [...] is cooperative and calm. According to the fpc, he has been more lethargic than normal, [...] Solutions Dante Kim MD 10/31/21 2211 Normal [facility] ED Provider Note [facility] EMERGENCY DEPT EMERGENCY DEPARTMENT ENCOUNTER Pt Name: Andrew Sifuentes Birthdate 1950 Date of evaluation: 10/31/2021 Provider: Myron Duran MD CHIEF COMPLAINT Chief Complaint Patient presents with ? Altered Mental Status Pt presents to ED via [facility] for complaint listed. Pt is from [place] [facility]. Pt's LKW was 1000 hours today. [...] a history of hydrocephalus with a [employer] shunt. 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 REVIEW OF [...] ? Kidney stone ? Neuropathy ? [employer] (ventriculoperitoneal) shunt status SURGICAL HISTORY Past Surgical [...] of Transportati (more content not included)... 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1950 Requested By: MYRON DURAN Order Number: [id number] Reading MD: Dante Kim Measurements Intervals [place] Rate: 91 P: 41 IN: 154 QRS: 50 QRSD: 147 T: 8 QT: 385 QTc: 474 Interpretive Statements Sinus rhythm Right bundle branch block Electronically Signed On 10-31-2021 20:36:25 EDT by Dante Kim [facility] CARDIOLOGY Dante Kim M D - 10/31/2021 [facility] Test Date: 2021-10-31 Pat Name: ANDREW SIFEUNTES Department: [facility] Room: 40 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1950 Requested By: MYRON DURAN Order Number: [id number] Reading MD: Dante Kim Measurements Intervals [place] Rate: 91 P: 41 IN: 154 QRS: 50 QRSD: 147 T: 8 QT: 385 QTc: 474 Interpretive Statements Sinus rhythm Right bundle branch block Electronically Signed On 10-31-2021 20:36:25 EDT by Dante Kim [facility] Work Phone: EKG 12 Lead - Chest PainOrde red By: Dante Kim on 10-31-2021 [facility] Work Phone: Hemogram w/ [employer]od[employer]on 10-31 Abs Baso Cnt 0.1 10*3/uL Normal 0.0-0.2 [facility] Comment on above: Performed By: #### P T/AP, TROPN, BMP3, HEMDF #### [facility] [facility] [address] [place] [address] Abs Neutrophile Cnt 6.0 10*3/uL Normal 1.8-7.0 [facility] Comment on above: Performed By: #### P T/AP, TROPN, BMP3, HEMDF #### [place] [address] [address] [place], [place] Basophils/100 WBC (Bld) 1.1 % Normal 0.0-2.0 [facility] Comment on above: Performed By: #### P T/AP, TROPN, BMP3, HEMDF #### [place] [address] [place], [place] Eosinophils (Bld) [#/Vol] 0.2 10*3/uL Normal 0.0-0.5 [facility] Comment on above: Performed By: #### P T/AP, TROPN, BMP3, HEMDF #### [address] Eosinophils/100 WBC (Bld) 2.3 % Normal 1.0-6.0 [facility] Comment on above: Performed By: #### P T/AP, TROPN, BMP3, HEMDF #### [address] Erythrocyte distribution width (RBC) [Ratio] 17.2 % High 11.5-14.5 [facility] Comment on above: Performed By: #### P T/AP, TROPN, BMP3, HEMDF #### [address] Granulocytes/100 WBC (Bld) 61.8 % Normal 40.0-80.0 [facility] Comment on above: Performed By: #### P T/AP, TROPN, BMP3, HEMDF #### [place] [address] [place], [place] Hematocrit (Bld) [Volume fraction] 35.0 % Low 40.0-52.0 [facility] Comment on above: Performed By: #### P T/AP, TROPN, BMP3, HEMDF #### [place] [address] [place], [place] Hemoglobin (Bld) [Mass/Vol] 11.3 g/dL Low 13.0-18.0 [facility] Comment on above: Performed By: #### P T/AP, TROPN, BMP3, HEMDF #### [place] [address] [address] [place], [place] Lymphocytes (Bld) [#/Vol] 2.8 10*3/uL Normal 1.0-4.3 [facility] Comment on above: Performed By: #### P T/AP, TROPN, BMP3, HEMDF #### [place] [address] [place], [place] Lymphocytes/100 WBC (Bld) 29.2 % Normal 20.0-40.0 [facility] Comment on above: Performed By: #### P T/AP, TROPN, BMP3, HEMDF #### [place] [address] [place], [place] MCH (RBC) [Entitic mass] 27.5 pg Normal 26.0-34.0 [facility] Comment on above: Performed By: #### P T/AP, TROPN, BMP3, HEMDF #### [place] [address] [place], [place] MCHC 32.3 % Normal 32.0-36.0 [facility] [facility] Comment on above: Performed By: #### P T/AP, TROPN, BMP3, HEMDF #### [address] [place], [place] MCV (RBC) [Entitic vol] 85.0 fL Normal 80.0-98.0 [facility] Comment on above: Performed By: #### P T/AP, TROPN, BMP3, HEMDF #### [place] [address] [place], [place] Monocytes (Bld) [#/Vol] 0.5 10*3/uL Normal 0.0-0.8 [facility] Comment on above: Performed By: #### P T/AP, TROPN, BMP3, HEMDF #### [address] Monocytes/100 WBC (Bld) 5.6 % Normal 2.0-10.0 [facility] Comment on above: Performed By: #### P T/AP, TROPN, BMP3, HEMDF #### [address] [place] [address] [address] [place], [place] Platelet mean volume (Bld) [Entitic vol] 8.6 fL Normal 7.4-12.4 [facility] Comment on above: Result Comment: MPV is a calculated measurement using platelet volume ratio. Performed By: #### P T/AP, TROPN, BMP3, HEMDF #### [facility] [address] [place], [place] Platelets (Bld) [#/Vol] 348 10*3/uL Normal 140-440 [facility] Comment on above: Performed By: #### P T/AP, TROPN, BMP3, HEMDF #### [place] [address] [address] [place], [place] RBC (Bld) [#/Vol] 4.12 10*6/uL Low 4.40-5.90 [facility] Comment on above: Performed By: #### P T/AP, TROPN, BMP3, HEMDF #### [facility] [address] [place], [place] WBC (Bld) [#/Vol] 9.7 10*3/uL Normal 3.6-10.7 [facility] Comment on above: Performed By: #### P T/AP, TROPN, BMP3, HEMDF #### [facility] [address] [place], [place] Laboratory - Coagulationon 0 10-31-2021 INR Coag (Bld) [Relative time] 2.0 {INR} [facility] Work Phone: Comment on above: Critical Value > 4.0 No Panel Informationon 10-31 Radiology Study observation (narrative) [facility] Work Phone: PROTIME/INR & PTTon 11-01-19 22 aPTT Coag (Bld) [Time] 39.2 s High 20.0 - 30.5 s [facility] Comment on above: NOTE: The therapeuti c time for Heparin anticoagulation, based on Xa activity inhibition, is an APTT of 46-80 seconds. INR Coag (Bld) [Relative time] 1.9 {INR} High [facility] Comment on above: Recommended Anticoag ulant Therapy: [...] Interpretation and review of laboratory results Abnormal [facility] PT Coag (PPP) [Time] 19.8 s High 9.0 - 12.0 s [facility] Comment on above: . Test Performed by [facility], [address] [place] [address] - [facility] Protime AND APTTon 2 aPTT Coag (Bld) [Time] 39.2 s High 20.0-30.5 [facility] Comment on above: Result Comment: NOTE : The therapeutic time for Heparin anticoagulation, based on Xa activity inhibition, is an APTT of 46-80 seconds. Performed By: #### P T/AP, TROPN, BMP3, HEMDF #### [address] [address] INR 1.9 High 0.9-1.1 [facility] Comment on above: Result Comment: Harry [...] #### P T/AP, TROPN, BMP3, HEMDF #### [facility] [address] [place] [address] PT Coag (PPP) [Time] 19.8 s High 9.0-12.0 [facility] Comment on above: Result Comment: . Performed By: #### P T/AP, TROPN, BMP3, HEMDF #### [facility] [address] [place] [address] Troponin Ion 10-31-2021 Troponin I.cardiac [Mass/Vol] ng/mL Normal 0.000-0.034 [facility] Comment on above: Result Comment: . Performed By: #### P T/AP, TROPN, BMP3, HEMDF #### [facility] [address] [place] [address] Troponin x1on 10-31-2021 Troponin I.cardiac [Mass/Vol] ng/mL 0.000 - 0.034 ng/mL [facility] Comment on above: . Test Performed by [facility], [address] [place] [address] [facility] Whole blood prothrombin time on 10-31-2021 PT Coag (Bld) [Time] 23.7 s 11.7-14.9 [facility] Work Phone: XR ABDOMEN (KUB) (SINGLE AP VIEW)on 10-31-2021 Patient Name: ANDREW SIFUENTES Diagnostic Radiology ACCESSION EXAM DATE/TIME PROCEDURE ORDERING PROVIDER [id number] 10/31/2021 20:36 EDT CR Abdomen AP [id number] -MYRON DURAN CPT code 77463 Reason For Exam (CR Abdomen AP) vp [...] 10/31/2021 8:49 [facility] Mey[facility] MD - 10/31/2021 Patient Name: ANDREW SIFUENTES Diagnostic Radiology ACCESSION EXAM DATE/TIME PROCEDURE ORDERING PROVIDER [id number] 10/31/2021 20:36 EDT CR Abdomen AP [id number] -DURAN MYRON CPT code 42061 Reason For Exam (CR Abdomen AP) vp [...] Time: 10/31/2021 8:49 [facility] Work Phone: [facility] Work Phone: XR CHEST PORTABLEon 11-01-19 Patient Name: ANDREW SIFUENTES Diagnostic Radiology ACCESSION EXAM DATE/TIME PROCEDURE ORDERING PROVIDER [id number] 10/31/2021 20:36 EDT CR Chest Portable [id number] PERDOMO CPT code 30251 Reason For Exam (CR Chest Portable) AMS [...] WENDELL Transcribed Date and Time: 10/31/2021 8:49 [facility] Huang Reynoso MD - 10/31/2021 Patient Name: ANDREW SIFUENTES Diagnostic Radiology ACCESSION EXAM DATE/TIME PROCEDURE ORDERING PROVIDER [id number] 10/31/2021 20:36 EDT CR Chest Portable [id number] MYRON GALINDO CPT code 46556 Reason For Exam (CR Chest Portable) AMS [...] Transcribed Date and Time: 10/31/2021 8:49 [facility] Work Phone: XR CHEST PORTABLEOrdered By: Huang Reynoso on 10-31-2021 [facility] Work Phone: Lupus Anticoagulanton 2021 DRVVT Confirmation Test Not Applicable Negative ratio [facility] Work Phone: dRVVT Screen 38 [facility] Work Phone: Hex Phosph Neut Test Not Applicable Negative NA [facility] Work Phone: Interpretation and review of laboratory results Abnormal [facility] Work Phone: LUPUS INTERPRETATION See Note [facility] Work Phone: Comment on above: Lupus [...] has not already been performed. Performed by [facility], [address], [facility] [place] [address] [email or web address], Quiana Castro MD - Lab. Director Platelet Neutralization Not Applicable Negative NA [facility] Work Phone: PTT-D Heparin Neutralized 48 [facility] Work Phone: PTT-LA 55 High [facility] Work Phone: Reptilase Tm 17.6 <=21.9 sec [facility] Work Phone: Thrombin Time 25.3 High [facility] Work Phone: [facility] Work Phone: Lupus Anticoagulant Reflexiv e Panelon 10-29-2021 aPTT Coag (Bld) [Time] 55 s High 32-48 [facility] Comment on above: Performed By: #### C OVAG #### [facility] [address] [place] [address] aPTT Coag (Bld) [Time] 48 s Normal 32-48 [facility] Comment on above: Performed By: #### C OVAG #### [facility] [address] [place] [address] DRVVT 1:1 Mix Not Applicable Normal 33-44 [facility] Work Phone: Comment on above: Performed By: #### C OVAG #### [facility] [address] [place] [address] dRVVT Confirmation Not Applicable Normal Negative [facility] Comment on above: Performed By: #### C OVAG #### [facility] [address] [place] [address] dRVVT Screen 38 sec Normal 33-44 [facility] Comment on above: Performed By: #### C OVAG #### [facility] [address] [place] [address] Hexagonal Phospholipid Neutral Reflex Not Applicable Normal Negative [facility] Comment on above: Performed By: #### C OVAG #### [facility] [address] [place] [address] Lupus Anticoagulant Interpretation See Note Normal [facility] Comment on above: Result [...] has not already been performed. Performed by [facility], [address] [place] [id number] [email or web address], Quiana Castro MD - Lab. Director Performed By: #### C OVAG #### [facility] [address] [place] [address] Platelet Neutralization (PTT-D, Confirm) Not Applicable Normal Negative [facility] Comment on above: Performed By: #### C OVAG #### [facility] [address] [place] [address] PT Coag (PPP) [Time] 14.7 s Normal 12.0-15.5 [facility] Work Phone: Comment on above: Performed By: #### C OVAG #### [facility] [address] [facility] [place] [address] PTT-D 1:1 Mix Not Applicable Normal 32-48 [facility] Work Phone: Comment on above: Performed By: #### C OVAG #### [facility] [address] [place] [address] Reptilase Time 17.6 sec Normal <=21.9 [facility] Comment on above: Performed By: #### C OVAG #### [facility] [address] [place] [address] Thrombin Time 25.3 sec High 14.7-19.5 [facility] Comment on above: Performed By: #### C OVAG #### [facility] [address] [place] [address] POCT COVID-19, Antigenon SARS-CoV-2 Nucleocapsid Antigen Negative Negative NA [facility] Comment on above: A negative result does not rule out the possibility of SARS-CoV-2 infection. NAAT-based methods should be considered for symptomatic patients presenting greater than seven days after onset of symptoms. Method: Lateral flow immunoassay. Fact sheets for healthcare providers and patients can be found at the following sites: https://www.Tendril.gov/media/235082/download https://www.Tendril.gov/media/979174/download Test Performed by [facility], [address] [place] [address] [facility] Prothrombin Timeon INR 2.7 High 0.9-1.1 [facility] Comment on above: Result Comment: Harry [...] Infarction Performed By: #### P T #### [facility] [address] [place] [address] PT Coag (PPP) [Time] 27.4 s High 9.0-12.0 [facility] Comment on above: Result Comment: . Performed By: #### P T #### [facility] [address] [place] [address] Protime-INRon 10-29-2021 INR Coag (Bld) [Relative time] 2.7 {INR} High [facility] Work Phone: Comment on above: Recommended Anticoag [...] Interpretation and review of laboratory results Abnormal [facility] Work Phone: 1 PT Coag (PPP) [Time] 27.4 s High 9.0 - 12.0 s [facility] Work Phone: Comment on above: . Test Performed by [facility], [address], [place], [place] [address] [facility] Work Phone: SARS-CoV-2 Antigenon 022 SARS-CoV-2 Antigen Negative Normal Negative [facility] Comment on above: Result Comment: A negative result does not rule out the possibility of SARS-CoV-2 infection. NAAT-based methods should be considered for symptomatic patients presenting greater than seven days after onset of symptoms. Method: Lateral flow immunoassay. Fact sheets for healthcare providers and patients can be found at the following sites: https://www.Tendril.gov/media/219441/download https://www.Tendril.gov/media/901616/download Performed By: #### C OVAG #### [facility] [address] [place] [address] CBCon 10-28-2021 Hematocrit (Bld) [Volume fraction] 33.4 % Low 40.0 - 52.0 % [email or web address] Work Phone: Hemoglobin (Bld) [Mass/Vol] 11.0 g/dL Low 13.0 - 18.0 g/dL [facility] Work Phone: 1 Interpretation and review of laboratory results Abnormal [facility] Work Phone: MCH (RBC) [Entitic mass] 27.8 pg 26.0 - 34.0 pg [facility] Work Phone: MCHC (RBC) [Mass/Vol] 32.8 % 32.0 - 36.0 % [email or web address] Work Phone: MCV (RBC) [Entitic vol] 84.8 fL 80.0 - 98.0 fL [facility] Work Phone: Platelet distribution width (Bld) [Ratio] 17.1 % High 11.5 - 14.5 % [facility] Work Phone: ) Platelet mean volume (Bld) [Entitic vol] 8.3 fL 7.4 - 12.4 fL [employer] Work Phone: [phone] Comment on above: MPV is a calculated measurement using platelet volume ratio. Platelets (Bld) [#/Vol] 344 10*3/uL 140 - 440 10*3/uL [employer] Work Phone: 1 RBC (Bld) [#/Vol] 3.94 10*6/uL Low 4.40 - 5.9 0 10*6/uL [facility] Work Phone: 1) WBC (Bld) [#/Vol] 10.0 10*3/uL 3.6 - 10.7 10*3/uL [facility] Work Phone: [phone] Test Performed by [facility], [address] [place], [place] [address] [facility] Work Phone: [phone] Comp Metabolic Panelon 10-28 ALP [Catalytic activity/Vol] 103 U/L Normal 38-126 [facility] Comment on above: Performed By: #### C A19O, LUPUS #### The performing lab is in the report. #### NSEO #### [facility] #### HEMDF, LDH3, BMP3, MG3, PT, CEA2 #### [facility] [address] [place] [address] #### B2GPM, B2GPA, B2GPG #### [address] [address] ALT [Catalytic activity/Vol] 26 U/L Normal 0-49 [facility] Comment on above: Result Comment: The ALT test is performed by an updated assay method. Please note that the reference intervals have been changed and are now sex specific. Performed By: #### C A19O, LUPUS #### The performing lab is in the report. #### NSEO #### [facility] #### HEMDF, LDH3, BMP3, MG3, PT, CEA2 #### [facility] [address] [place] [address] #### B2GPM, B2GPA, B2GPG #### [address] AST [Catalytic activity/Vol] 24 U/L Normal 15-46 [facility] Comment on above: Performed By: #### C A19O, LUPUS #### The performing lab is in the report. #### NSEO #### [facility] #### HEMDF, LDH3, BMP3, MG3, PT, CEA2 #### [facility] [address] [place] #### B2GPM, B2GPA, B2GPG #### [address] Calcium [Mass/Vol] 9.1 mg/dL Normal 8.4-10.4 [facility] Comment on above: Performed By: #### C A19O, LUPUS #### The performing lab is in the report. #### NSEO #### [facility] #### HEMDF, LDH3, BMP3, MG3, PT, CEA2 #### [facility] [address] [place] #### B2GPM, B2GPA, B2GPG #### [address] Glucose [Mass/Vol] 117 mg/dL High 70-100 [facility] Comment on above: Performed By: #### C A19O, LUPUS #### The performing lab is in the report. #### NSEO #### [facility] #### HEMDF, LDH3, BMP3, MG3, PT, CEA2 #### [facility] [address] [place] #### B2GPM, B2GPA, B2GPG #### [address] Urea nitrogen [Mass/Vol] 16 mg/dL Normal 7-17 [facility] Comment on above: Performed By: #### C A19O, LUPUS #### The performing lab is in the report. #### NSEO #### [facility] #### HEMDF, LDH3, BMP3, MG3, PT, CEA2 #### [place] [address] [place] [address] #### B2GPM, B2GPA, B2GPG #### [address] Anion gap [Moles/Vol] 5 mmol/L Normal 3-13 [facility] Comment on above: Performed By: #### C A19O, LUPUS #### The performing lab is in the report. #### NSEO #### [facility] #### HEMDF, LDH3, BMP3, MG3, PT, CEA2 #### [address] [place] #### B2GPM, B2GPA, B2GPG #### [address] Bilirubin [Mass/Vol] 0.4 mg/dL Normal 0.2-1.3 [facility] Comment on above: Performed By: #### C A19O, LUPUS #### The performing lab is in the report. #### NSEO #### [facility] #### HEMDF, LDH3, BMP3, MG3, PT, CEA2 #### [address] [place] #### B2GPM, B2GPA, B2GPG #### [address] CO2 [Moles/Vol] 29 mmol/L Normal 22-30 [facility] Comment on above: Performed By: #### C A19O, LUPUS #### The performing lab is in the report. #### NSEO #### [facility] #### HEMDF, LDH3, BMP3, MG3, PT, CEA2 #### [address] [place] #### B2GPM, B2GPA, B2GPG #### [address] [place], [place] Creatinine [Mass/Vol] 0.71 mg/dL Normal 0.52-1.25 [facility] Comment on above: Performed By: #### C A19O, LUPUS #### The performing lab is in the report. #### NSEO #### [facility] #### HEMDF, LDH3, BMP3, MG3, PT, CEA2 #### [facility] [address] [place] [address] #### B2GPM, B2GPA, B2GPG #### [address] eGFR OTHER > 90.0 Normal >60 [facility] Comment on above: Result Comment: KDIG [...] HEMDF, LDH3, BMP3, MG3, PT, CEA2 #### [facility] [address] [place] [address] #### B2GPM, B2GPA, B2GPG #### [address] GFR/1.73 sq M.predicted among blacks MDRD (S/P/Bld) [Vol rate/Area] mL/min/{1.73_m2} Normal >60 [facility] Comment on above: Performed By: #### C A19O, LUPUS #### The performing lab is in the report. #### NSEO #### [facility] #### HEMDF, LDH3, BMP3, MG3, PT, CEA2 #### [place] [address] [place] [address] #### B2GPM, B2GPA, B2GPG #### [address] Protein [Mass/Vol] 7.1 g/dL Normal 6.3-8.2 [facility] Comment on above: Performed By: #### C A19O, LUPUS #### The performing lab is in the report. #### NSEO #### [facility] #### HEMDF, LDH3, BMP3, MG3, PT, CEA2 #### [address] [place] [address] #### B2GPM, B2GPA, B2GPG #### [address] Potassium [Moles/Vol] 3.5 mmol/L Normal 3.5-5.1 [facility] Comment on above: Performed By: #### C A19O, LUPUS #### The performing lab is in the report. #### NSEO #### [facility] #### HEMDF, LDH3, BMP3, MG3, PT, CEA2 #### [address] [place] [address] #### B2GPM, B2GPA, B2GPG #### [address] Sodium [Moles/Vol] 138 mmol/L Normal 135-145 [facility] Comment on above: Performed By: #### C A19O, LUPUS #### The performing lab is in the report. #### NSEO #### [facility] #### HEMDF, LDH3, BMP3, MG3, PT, CEA2 #### [place] [address] [place] [address] #### B2GPM, B2GPA, B2GPG #### [address] Albumin [Mass/Vol] 3.7 g/dL Normal 3.5-5.0 [facility] Comment on above: Performed By: #### C A19O, LUPUS #### The performing lab is in the report. #### NSEO #### [facility] #### HEMDF, LDH3, BMP3, MG3, PT, CEA2 #### [place] [address] [place] [address] #### B2GPM, B2GPA, B2GPG #### [address] Chloride [Moles/Vol] 104 mmol/L Normal 98-107 [facility] Comment on above: Performed By: #### C A19O, LUPUS #### The performing lab is in the report. #### NSEO #### [facility] #### HEMDF, LDH3, BMP3, MG3, PT, CEA2 #### [address] [place] [address] #### B2GPM, B2GPA, B2GPG #### [address] Comprehensive Metabolic Pane kiel 10-28-2021 Albumin [Mass/Vol] 3.7 g/dL 3.5 - 5.0 g/dL [facility] Work Phone: ALP (Bld) [Catalytic activity/Vol] 103 U/L 38 - 126 U/L [facility] Work Phone: ALT [Catalytic activity/Vol] 26 U/L 0 - 49 U/L [facility] Work Phone: Comment on above: The ALT test is perf ormed by an updated assay method. Please note that the reference intervals have been changed and are now sex specific. Anion gap [Moles/Vol] 5 mmol/L 3 - 13 mmol/L [facility] Work Phone: [phone] AST [Catalytic activity/Vol] 24 U/L 15 - 46 U/L [facility] Work Phone: [phone] Bilirubin [Mass/Vol] 0.4 mg/dL 0.2 - 1 .3 mg/dL [facility] Work Phone: ) 222 Calcium [Mass/Vol] 9.1 mg/dL 8.4 - 10. 4 mg/dL [facility] Work Phone: ) 222 Chloride [Moles/Vol] 104 mmol/L 98 - 10 7 mmol/L [facility] Work Phone: () 222 CO2 [Moles/Vol] 29 mmol/L 22 - 30 mmol/L [facility] Work Phone: Creatinine [Mass/Vol] 0.71 mg/dL 0.52 - 1.25 mg/dL [facility] Work Phone: [phone] IF NonAfrican Salvadorean >90.0 >60 mL/min [facility] Work Phone: Comment on above: KDIGO [...] 7.1 g/dL 6.3 - 8.2 g/dL [facility] Work Phone: [phone] GFR/1.73 sq M.predicted among blacks MDRD (S/P/Bld) [Vol rate/Area] mL/min/{1.73_m2} >60 mL/min [facility] Work Phone: Glucose [Mass/Vol] 117 mg/dL High 70 - 100 mg/dL [facility] Work Phone: [phone] Interpretation and review of laboratory results Abnormal [facility] Work Phone: [phone] Potassium [Moles/Vol] 3.5 mmol/L 3.5 - 5.1 mmol/L [facility] Work Phone: [phone] Sodium [Moles/Vol] 138 mmol/L 135 - 145 mmol/L [facility] Work Phone: [phone] Urea nitrogen (BldV) [Mass/Vol] 16 mg/dL 7 - 17 mg/dL [facility] Work Phone: [phone] Test Performed by [facility], [address] [place], [place] [id number] [place] [address] LAB [facility] Work Phone: [phone] Hemogramon 10-28-2021 Erythrocyte distribution width (RBC) [Ratio] 17.1 % High 11.5-14.5 [facility] Comment on above: Performed By: #### C A19O, LUPUS #### The performing lab is in the report. #### NSEO #### [facility] #### HEMDF, LDH3, BMP3, MG3, PT, CEA2 #### [address] [address] #### B2GPM, B2GPA, B2GPG #### [address] Hematocrit (Bld) [Volume fraction] 33.4 % Low 40.0-52.0 [facility] Comment on above: Performed By: #### C A19O, LUPUS #### The performing lab is in the report. #### NSEO #### [facility] #### HEMDF, LDH3, BMP3, MG3, PT, CEA2 #### [address] [address] #### B2GPM, B2GPA, B2GPG #### [address] Hemoglobin (Bld) [Mass/Vol] 11.0 g/dL Low 13.0-18.0 [facility] Comment on above: Performed By: #### C A19O, LUPUS #### The performing lab is in the report. #### NSEO #### [facility] #### HEMDF, LDH3, BMP3, MG3, PT, CEA2 #### [facility] [address] [place] [address] #### B2GPM, B2GPA, B2GPG #### [address] MCH (RBC) [Entitic mass] 27.8 pg Normal 26.0-34.0 [facility] Comment on above: Performed By: #### C A19O, LUPUS #### The performing lab is in the report. #### NSEO #### [facility] #### HEMDF, LDH3, BMP3, MG3, PT, CEA2 #### [address] [place] [address] #### B2GPM, B2GPA, B2GPG #### [address] MCHC 32.8 % Normal 32.0-36.0 [facility] Comment on above: Performed By: #### C A19O, LUPUS #### The performing lab is in the report. #### NSEO #### [facility] #### HEMDF, LDH3, BMP3, MG3, PT, CEA2 #### [address] [place] [address] #### B2GPM, B2GPA, B2GPG #### [address] MCV (RBC) [Entitic vol] 84.8 fL Normal 80.0-98.0 [facility] Comment on above: Performed By: #### C A19O, LUPUS #### The performing lab is in the report. #### NSEO #### [facility] #### HEMDF, LDH3, BMP3, MG3, PT, CEA2 #### [facility] [address] [place] [address] #### B2GPM, B2GPA, B2GPG #### [address] Platelet mean volume (Bld) [Entitic vol] 8.3 fL Normal 7.4-12.4 [facility] Comment on above: Result Comment: MPV is a calculated measurement using platelet volume ratio. Performed By: #### C A19O, LUPUS #### The performing lab is in the report. #### NSEO #### [facility] #### HEMDF, LDH3, BMP3, MG3, PT, CEA2 #### [place] [address] [place] #### B2GPM, B2GPA, B2GPG #### [address] Platelets (Bld) [#/Vol] 344 10*3/uL Normal 140-440 [facility] Comment on above: Performed By: #### C A19O, LUPUS #### The performing lab is in the report. #### NSEO #### [facility] #### HEMDF, LDH3, BMP3, MG3, PT, CEA2 #### [address] [place] #### B2GPM, B2GPA, B2GPG #### [address] RBC (Bld) [#/Vol] 3.94 10*6/uL Low 4.40-5.90 [facility] Comment on above: Performed By: #### C A19O, LUPUS #### The performing lab is in the report. #### NSEO #### [facility] #### HEMDF, LDH3, BMP3, MG3, PT, CEA2 #### [place] [address] [place] #### B2GPM, B2GPA, B2GPG #### [place] [address] [place] [address] WBC (Bld) [#/Vol] 10.0 10*3/uL Normal 3.6-10.7 [facility] Comment on above: Performed By: #### C A19O, LUPUS #### The performing lab is in the report. #### NSEO #### [facility] #### HEMDF, LDH3, BMP3, MG3, PT, CEA2 #### [facility] [address] [place] [address] #### B2GPM, B2GPA, B2GPG #### [facility] [address] [place] [address] Neuron Specific Enolaseon Neuron Specific Enolase 20.8 Normal [facility] Comment on above: Result Comment: Neur on Specific Enolase, Serum 20.8 ng/mL H (Ref Interval: <=12.7) NSE and Hgb are elevated in the specimen. The elevated NSE may be a result of hemolysis as NSE is expressed in red blood cells. Interpret results with caution. INTERPRETIVE INFORMATION: Neuron Specific Enolase in Serum This assay is performed using the [employer] NSE Kryptor Immunoassay. Results obtained with different assay methods or kits cannot be used interchangeably. Results cannot be interpreted as absolute evidence of the presence or absence of malignant disease. This test was developed and its performance characteristics determined by [employer]. It has not been cleared or approved by the [place] Food and Drug Administration. This test was performed in a CLIA certified laboratory and is intended for clinical purposes. Performed By: #### C OVAG #### [facility] [address] [place] [address] Neuron specific enolase (NSE )on 10-28-2021 Neuron Specific Enolase 20.8 [facility] Work Phone: Comment on above: Neuron Specific Enol ase, Serum 20.8 ng/mL H (Ref Interval: <=12.7) NSE and Hgb are elevated in the specimen. The elevated NSE may be a result of hemolysis as NSE is expressed in red blood cells. Interpret results with caution. INTERPRETIVE INFORMATION: Neuron Specific Enolase in Serum This assay is performed using the [employer] NSE Kryptor Immunoassay. Results obtained with different assay methods or kits cannot be used interchangeably. Results cannot be interpreted as absolute evidence of the presence or absence of malignant disease. This test was developed and its performance characteristics determined by [employer]. It has not been cleared or approved by the US Food and Drug Administration. This test was performed in a CLIA certified laboratory and is intended for clinical purposes. 1 [facility] Work Phone: Prothrombin Timeon 2 INR 3.1 High 0.9-1.1 [facility] Comment on above: Result Comment: Harry [...] HEMDF, LDH3, BMP3, MG3, PT, CEA2 #### [facility] [address] [place] [address] #### B2GPM, B2GPA, B2GPG #### [place] [address] [place], [place] PT Coag (PPP) [Time] 30.8 s High 9.0-12.0 [facility] Comment on above: Result Comment: . Performed By: #### C A19O, LUPUS #### The performing lab is in the report. #### NSEO #### [facility] #### HEMDF, LDH3, BMP3, MG3, PT, CEA2 #### [facility] [address] [place] [address] #### B2GPM, B2GPA, B2GPG #### [address] [address] Protime-INRon 10-28-2021 INR Coag (Bld) [Relative time] 3.1 {INR} High [facility] Work Phone: Comment on above: Recommended Anticoag [...] Interpretation and review of laboratory results Abnormal [facility] Work Phone: PT Coag (PPP) [Time] 30.8 s High 9.0 - 12.0 s [facility] Work Phone: Comment on above: . Test Performed by [facility], [address] LAB [facility] Work Phone: MRI BRAIN WO CONTRASTon 10-06 Patient Name: ANDREW SIFUENTES Magnetic Resonance Imaging ACCESSION EXAM DATE/TIME PROCEDURE ORDERING PROVIDER [id number] 10/27/2021 13:14 EDT MRI Brain w/o Contrast UNASSIGNED, UNASSIGNED CPT code 05353 Reason For Exam (MRI Brain w/o Contrast) stroke Patient has SUPERVISOR [employer] shunt in place, please follow Radiology protocol [...] OSAMA Transcribed Date and Time: 10/27/2021 2:39 [facility] RAD Venus Loyd MD - 10/27/2021 Patient Name: [id number] Magnetic Resonance Imaging ACCESSION EXAM DATE/TIME PROCEDURE ORDERING PROVIDER [id number] 10/27/2021 13:14 EDT MRI Brain w/o Contrast UNASSIGNED, UNASSIGNED CPT code 72384 Reason For Exam (MRI Brain w/o Contrast) stroke Patient has SU[employer] shunt in place, please follow Radiology protocol [...] Brain w/o Contrast Patient Name: AND[facility]W [facility]ELAZQUEZ [facility] [id number] Magnetic Resonance Imaging ACCESSION EXAM DATE/TIME PROCEDURE ORDERING PROVIDER [id number] 10/27/2021 13:14 EDT MRI Brain w/o Contrast UNASSIGNED, UNASSIGNED CPT code 38939 Reason For Exam (MRI Brain w/o Contrast) stroke Patient has SU[employer] shunt in place, please follow Radiology protocol [...] Time: 10/27/2021 2:38 pm Signed by: MD KHAIR, VENUS RAMOS Transcribed Date and Time: 10/27/2021 2:39 Normal [facility] Prothrombin Timeon 2 INR 2.1 High 0.9-1.1 [facility] Comment on above: Result Comment: Harry [...] Infarction Performed By: #### P T #### [facility] [address] [place] [address] PT Coag (PPP) [Time] 21.9 s High 9.0-12.0 [facility] Work Phone: Comment on above: . Result Comment: . Performed By: #### P T #### [facility] [address] [place] [address] Protime-INRon 10-27-2021 INR Coag (Bld) [Relative time] 2.1 {INR} High [facility] Work Phone: Comment on above: Recommended Anticoag [...] Interpretation and review of laboratory results Abnormal [facility] Work Phone: Test Performed by [facility], [address], [place], [place] [address] [facility] Work Phone: CT HEAD WO CONTRASTon 2021 Patient Name: ANDREW SIFUENTES Computed Tomography ACCESSION EXAM DATE/TIME PROCEDURE ORDERING PROVIDER [id number] 10/26/2021 11:[address] Head or Brain w/o JUNIE PINEDA ALLISON Contrast CPT code 75337 Reason For Exam (CT Head or Brain w/o Contrast) hydrocephalus. thank you Report CLINICAL INFORMATION: Hydrocephalus. Shunt. 3 mm axial cuts through the head are obtained without IV contrast. The examination is compared to a previous study dated 06/29/2014. FINDINGS: Old SU[employer] shunt tubing is noted bilaterally. The new [...] clear. IMPRESSION: 1. Old and new [employer] shunt tubing. 2. No hydrocephalus. 3. Atrophy [...] Tomography ACCESSION EXAM DATE/TIME PROCEDURE ORDERING PROVIDER [id number] 10/26/2021 11:[address] Head or Brain w/o JUNIE PINEDA, SARINA Contrast CPT code 03364 Reason For Exam (CT Head or Brain w/o Contrast) hydrocephalus. thank you Report CLINICAL INFORMATION: Hydrocephalus. Shunt. 3 mm axial cuts through the head are obtained without IV contrast. The examination is compared to a previous study dated 06/29/2014. FINDINGS: Old [employer] shunt tubing is noted bilaterally. The new [...] clear. IMPRESSION: 1. Old and new [employer] shunt tubing. 2. No hydrocephalus. 3. Atrophy [...] Tomography ACCESSION EXAM DATE/TIME PROCEDURE ORDERING PROVIDER [id number] 10/26/2021 11:[address] Head or Brain w/o JUNIE PINEDA, SARINA Contrast CPT code 03508 Reason For Exam (CT Head or Brain w/o Contrast) hydrocephalus. thank you Report CLINICAL INFORMATION: Hydrocephalus. Shunt. 3 mm axial cuts through the head are obtained without IV contrast. The examination is compared to a previous study dated 06/29/2014. FINDINGS: Old [employer] shunt tubing is noted bilaterally. The new [...] clear. IMPRESSION: 1. Old and new [employer] shunt tubing. 2. No hydrocephalus. 3. Atrophy and evidence of small-vessel ischemic disease. 4. No CT evidence of an acute intracranial process. Report Dictated on Final Dictating Physician: MD SOLANO JEFFREY Signed Date and Time: 10/26/2021 11:42 am Signed by: MD XIOMARA, ALBERT Transcribed Date and Time: 10/26/2021 11:43 Normal [facility] EEG awake and asleepon 10-26 Bony Tompkins MD 10/26/2021 4:06 PM [facility] [address] [facility] [place] [address] ROUTINE EEG REPORT Patient Name: Andrew Sifuentes : 1950 Date of Study: 10/26/2021 Duration Recorded: 23 minutes EEG#: [id number] IRISH MOSS GATHERER: CASTRO PROVIDER REQUESTING STUDY: Dr. Barreto REASON FOR EXAM: seizures HISTORY: Andrew Sifuentes is a 71 y.o. male with history of obstructive hydrocephalus s/p SUPERVIS[employer] shunt in 1987, needing multiple revisions and [...] limits and both old and new [employer] shunt tubing noted. At present patient is awake, follows commands, was able to tell his name, and that he was in hospital but not oriented to time. Per documentation patient had NCSE in May 2021, was on Vimpat, but it was discontinued as there was no evidence of recurrent seizures in July 2021 by Neurology at [facility], per daughter patient was on Dilantin for 31 yrs. Per daughter patient had seizures in the past and also felt he had staring episodes this morning. Per daughter patient has been essentially bed bound in [place] since May 2021 but prior to that [...] study with video was carried out at [facility]. Scalp electrodes were positioned in person by an magnetic resonance technologist, following patient education, according to the 10-20 International system of electrode placement and maintained for integrity and quality of the recording. EEG data with video was recorded continuously and digitally stored. The magnetic resonance technologist reviewed all automated detections and manual [...] No normal vari (more content not included)... [employer] Work Phone: [employer] Work Phone: No Panel Informationon 10-26 Radiology Study observation (narrative) [employer] Phone: Prothrombin Timeon 2 INR 1.9 High 0.9-1.1 [facility] Comment on above: Result Comment: Harry mmended [...] Infarction Performed By: #### C OVAG #### [facility] [address] [place] [address] PT Coag (PPP) [Time] 19.7 s High 9.0-12.0 [employer] Comment on above: Result Comment: . Performed By: #### C OVAG #### [employer] [facility] [address] [place] [address] Protime-INRon 10-26-2021 INR Coag (Bld) [Relative time] [...] Interpretation and review of laboratory results Abnormal [facility] Work Phone: PT Coag (PPP) [Time] 19.7 s High 9.0 - 12.0 s [facility] Work Phone: Comment on above: . Test Performed by [facility], [address] [place], [place] [address] [facility] Work Phone: CA 19-9on 10-25-2021 CA 19-9 17 U/mL Normal <=35 [facility] Work Phone: Comment on above: INTERPRETIVE INFORMA [...] or absence of malignant disease. Performed By: [place] [address] Cmm Inspector: Quiana Castro MD Result Comment: INTE RPRETIVE [...] or absence of malignant disease. Performed By: [place] [address] Cmm Inspector: Quiana Castro MD Performed By: #### C OVAG #### [facility] [employer] [facility] [address] [place] [address] Cancer Antigen 19-9on 2021 [facility] Work Phone: Prothrombin Timeon 2 INR 1.5 High 0.9-1.1 [facility] Comment on above: Result Comment: Harry [...] Infarction Performed By: #### P T #### [facility] [address] [place] [address] PT Coag (PPP) [Time] 15.6 s High 9.0-12.0 [facility] Comment on above: Result Comment: . Performed By: #### P T #### [facility] [facility] [address] [place] [address] Protime-INRon 10-25-2021 INR Coag (Bld) [Relative time] 1.5 {INR} High [facility] Work Phone: Comment on above: Recommended Anticoag [...] Interpretation and review of laboratory results Abnormal [facility] Work Phone: PT Coag (PPP) [Time] 15.6 s High 9.0 - 12.0 s [facility] Work Phone: Comment on above: . Test Performed by [facility] [employer] [facility], [address] [place], [place] [address] [facility] Work Phone: B-2 Glycoprotein (IGA)on [...] [Moles/Vol] 8 mmol/L Normal 3-13 [facility] Comment on above: Performed By: #### C A19O, LUPUS #### The performing lab is in the report. #### NSEO #### [facility] #### HEMDF, LDH3, BMP3, MG3, PT, CEA2 #### [facility] [address] [place] [address] #### B2GPM, B2GPA, B2GPG #### [facility] [address] [place] [address] Calcium [Mass/Vol] 8.8 mg/dL Normal 8.4-10.4 [facility] Comment on above: Performed By: #### C A19O, LUPUS #### The performing lab is in the report. #### NSEO #### [facility] #### HEMDF, LDH3, BMP3, MG3, PT, CEA2 #### [facility] [address] [place] [address] #### B2GPM, B2GPA, B2GPG #### [address] CO2 [Moles/Vol] 25 mmol/L Normal 22-30 [facility] Comment on above: Performed By: #### C A19O, LUPUS #### The performing lab is in the report. #### NSEO #### [facility] #### HEMDF, LDH3, BMP3, MG3, PT, CEA2 #### [facility] [address] [place] [address] #### B2GPM, B2GPA, B2GPG #### [address] Creatinine [Mass/Vol] 0.74 mg/dL Normal 0.52-1.25 [facility] Comment on above: Performed By: #### C A19O, LUPUS #### The performing lab is in the report. #### NSEO #### [facility] #### HEMDF, LDH3, BMP3, MG3, PT, CEA2 #### [facility] [address] [place] [address] #### B2GPM, B2GPA, B2GPG #### [address] eGFR OTHER > 90.0 Normal >60 [facility] Comment on above: Result Comment: KDIG [...] HEMDF, LDH3, BMP3, MG3, PT, CEA2 #### [facility] [address] [place] [address] #### B2GPM, B2GPA, B2GPG #### [address] GFR/1.73 sq M.predicted among blacks MDRD (S/P/Bld) [Vol rate/Area] mL/min/{1.73_m2} Normal >60 [facility] Comment on above: Performed By: #### C A19O, LUPUS #### The performing lab is in the report. #### NSEO #### [facility] #### HEMDF, LDH3, BMP3, MG3, PT, CEA2 #### [address] [place] [address] #### B2GPM, B2GPA, B2GPG #### [address] Glucose [Mass/Vol] 116 mg/dL High 70-100 [facility] Comment on above: Performed By: #### C A19O, LUPUS #### The performing lab is in the report. #### NSEO #### [facility] #### HEMDF, LDH3, BMP3, MG3, PT, CEA2 #### [address] [place] [address] #### B2GPM, B2GPA, B2GPG #### [address] Urea nitrogen [Mass/Vol] 19 mg/dL High 7-17 [facility] Comment on above: Performed By: #### C A19O, LUPUS #### The performing lab is in the report. #### NSEO #### [facility] #### HEMDF, LDH3, BMP3, MG3, PT, CEA2 #### [facility] [address] [place] [address] #### B2GPM, B2GPA, B2GPG #### [address] Chloride [Moles/Vol] 107 mmol/L Normal 98-107 [facility] Comment on above: Performed By: #### C A19O, LUPUS #### The performing lab is in the report. #### NSEO #### [facility] #### HEMDF, LDH3, BMP3, MG3, PT, CEA2 #### [place] [address] [place] [address] #### B2GPM, B2GPA, B2GPG #### [address] Potassium [Moles/Vol] 3.9 mmol/L Normal 3.5-5.1 [facility] Comment on above: Performed By: #### C A19O, LUPUS #### The performing lab is in the report. #### NSEO #### [facility] #### HEMDF, LDH3, BMP3, MG3, PT, CEA2 #### [place] [address] [place] [address] #### B2GPM, B2GPA, B2GPG #### [address] Sodium [Moles/Vol] 140 mmol/L Normal 135-145 [facility] Comment on above: Performed By: #### C A19O, LUPUS #### The performing lab is in the report. #### NSEO #### [facility] #### HEMDF, LDH3, BMP3, MG3, PT, CEA2 #### [place] [address] [place] [address] #### B2GPM, B2GPA, B2GPG #### [address] Anion gap [Moles/Vol] 8 mmol/L 3 - 13 mmol/L [facility] Calcium [Mass/Vol] 8.8 mg/dL 8.4 - 10. 4 mg/dL [facility] Chloride [Moles/Vol] 107 mmol/L 98 - 10 7 mmol/L [facility] CO2 [Moles/Vol] 25 mmol/L 22 - 30 mmol/L [facility] Creatinine [Mass/Vol] 0.74 mg/dL 0.52 - 1.25 mg/dL [facility] EGFR IF NonAfrican Salvadorean >90.0 >60 mL/min [facility] Comment on above: KDIGO guidelines [...] 116 mg/dL High 70 - 100 mg/dL [facility] Interpretation and review of laboratory results Abnormal [facility] Potassium [Moles/Vol] 3.9 mmol/L 3.5 - 5.1 mmol/L [facility] Sodium [Moles/Vol] 140 mmol/L 135 - 145 mmol/L [facility] Urea nitrogen (BldV) [Mass/Vol] 19 mg/dL High 7 - 17 mg/dL [facility] Test Performed by [facility], [address] [place], [place] [address] [facility] Beta-2 Glycoprotein I IgAon 10-24-2021 Beta-2 Glycoprotein I IgA < 2.0 Normal [facility] Comment on above: Result Comment: Inte rpretive Information: Results equal to or greater than 20 U/mL = POSITIVE Results less than 20 U/mL = NEGATIVE Performed By: #### C OVAG #### [facility] [address] [place] [address] Beta-2 Glycoprotein I IgGon 10-24-2021 Beta-2 Glycoprotein I IgG < 1.4 Normal [facility] Comment on above: Result Comment: Inte rpretive Information: Results equal to or greater than 20 U/mL = POSITIVE Results less than 20 U/mL = NEGATIVE Performed By: #### C OVAG #### [facility] [address] [place] [address] Beta-2 Glycoprotein I IgMon 10-24-2021 Beta-2 Glycoprotein I IgM < 1.5 Normal [facility] Comment on above: Result Comment: Inte rpretive Information: Results equal to or greater than 20 U/mL = POSITIVE Results less than 20 U/mL = NEGATIVE Performed By: #### C OVAG #### [facility] [address] [place] [address] No Panel Informationon 10-24 [facility] Test Performed by [facility], [address] [place] [id number] [facility] Work Phone: PROTEIN C FUNCTIONALon 10-24 Interpretation and review of laboratory results Abnormal [facility] Protein C-Functional 185 % High 83 [...] reference intervals for this test in the [facility] ([employer]). Performed by [facility], [address] [place] [address] [email or web address], Quiana Castro MD - Lab. Director Protein C, Functionalon 10-06 Protein C, Functional 185 % High 83-168 [facility] Comment on above: Result Comment: INTE RPRETIVE [...] reference intervals for this test in the [facility] ([employer]). Performed by [facility], [address] [facility] [place] [address] [email or web address], Quiana Castro MD - Lab. Director Performed By: #### P T #### [employer] [facility] [address] [facility] [place] [address] Protein S, Functionalon 10-06 Protein S, Functional [...] reference intervals for this test in the [facility] ([employer]). Performed by [facility], [address] [facility] [place] [address] [email or web address], Quiana Castro MD - Lab. Director Result [...] reference intervals for this test in the [facility] ([employer]). Performed by [facility], [address] [facility] [place] [address] [employer], Quiana Castro MD - Lab. Director Performed By: #### P T #### [employer] [facility] [address] [facility] [place] [address] Prothrombin Timeon INR 1.2 High 0.9-1.1 [facility] Comment on above: Result Comment: Harry [...] HEMDF, LDH3, BMP3, MG3, PT, CEA2 #### [facility] [address] [place] [address] #### B2GPM, B2GPA, B2GPG #### [address] [address] PT Coag (PPP) [Time] 12.6 s High 9.0-12.0 [facility] Comment on above: Result Comment: . Performed By: #### C A19O, LUPUS #### The performing lab is in the report. #### NSEO #### [facility] #### HEMDF, LDH3, BMP3, MG3, PT, CEA2 #### [facility] [address] [place] [address] #### B2GPM, B2GPA, B2GPG #### [address] [address] Protime-INRon 10-24-2021 INR Coag (Bld) [Relative time] 1.2 {INR} High [facility] Comment on above: Recommended Anticoag ulant Therapy: [...] Interpretation and review of laboratory results Abnormal [facility] PT Coag (PPP) [Time] 12.6 s High 9.0 - 12.0 s [facility] Comment on above: . Test Performed by [facility], [address] [place] [address] [facility] Basic Metabolic Panelon - Anion gap [Moles/Vol] 10 mmol/L Normal 3-13 [facility] Comment on above: Performed By: #### C A19O, LUPUS #### The performing lab is in the report. #### NSEO #### [facility] #### HEMDF, LDH3, BMP3, MG3, PT, CEA2 #### [facility] [address] [place] [address] #### B2GPM, B2GPA, B2GPG #### [address] [address] Calcium [Mass/Vol] 9.6 mg/dL Normal 8.4-10.4 [facility] Comment on above: Performed By: #### C A19O, LUPUS #### The performing lab is in the report. #### NSEO #### [facility] #### HEMDF, LDH3, BMP3, MG3, PT, CEA2 #### [facility] [address] [place] [address] #### B2GPM, B2GPA, B2GPG #### [address] [address] CO2 [Moles/Vol] 27 mmol/L Normal 22-30 [facility] Comment on above: Performed By: #### C A19O, LUPUS #### The performing lab is in the report. #### NSEO #### [facility] #### HEMDF, LDH3, BMP3, MG3, PT, CEA2 #### [facility] [address] [place] [address] #### B2GPM, B2GPA, B2GPG #### [address] Glucose [Mass/Vol] 109 mg/dL High 70-100 [facility] Comment on above: Performed By: #### C A19O, LUPUS #### The performing lab is in the report. #### NSEO #### [facility] #### HEMDF, LDH3, BMP3, MG3, PT, CEA2 #### [address] [place] [address] #### B2GPM, B2GPA, B2GPG #### [address] Urea nitrogen [Mass/Vol] 18 mg/dL High 7-17 [facility] Comment on above: Performed By: #### C A19O, LUPUS #### The performing lab is in the report. #### NSEO #### [facility] #### HEMDF, LDH3, BMP3, MG3, PT, CEA2 #### [address] [place], [place] #### B2GPM, B2GPA, B2GPG #### [address] Creatinine [Mass/Vol] 0.82 mg/dL Normal 0.52-1.25 [facility] Comment on above: Performed By: #### C A19O, LUPUS #### The performing lab is in the report. #### NSEO #### [facility] #### HEMDF, LDH3, BMP3, MG3, PT, CEA2 #### [address] [place], [place] #### B2GPM, B2GPA, B2GPG #### [address] GFR/1.73 sq M.predicted among blacks MDRD (S/P/Bld) [Vol rate/Area] mL/min/{1.73_m2} Normal >60 [facility] Comment on above: Performed By: #### C A19O, LUPUS #### The performing lab is in the report. #### NSEO #### [facility] #### HEMDF, LDH3, BMP3, MG3, PT, CEA2 #### [facility] [address] [place] [address] #### B2GPM, B2GPA, B2GPG #### [facility] [address] [place] [address] GFR/1.73 sq M.predicted among non-blacks MDRD (S/P/Bld) [Vol rate/Area] 89.9 mL/min/{1.73_m2} Normal >60 [facility] Comment on above: Result Comment: KDIG [...] HEMDF, LDH3, BMP3, MG3, PT, CEA2 #### [facility] [address] [place] [address] #### B2GPM, B2GPA, B2GPG #### [facility] [address] [place], [place] Chloride [Moles/Vol] 104 mmol/L Normal 98-107 [facility] Comment on above: Performed By: #### C A19O, LUPUS #### The performing lab is in the report. #### NSEO #### [facility] #### HEMDF, LDH3, BMP3, MG3, PT, CEA2 #### [place] [address] [place] [address] #### B2GPM, B2GPA, B2GPG #### [address] Potassium [Moles/Vol] 3.9 mmol/L Normal 3.5-5.1 [facility] Comment on above: Performed By: #### C A19O, LUPUS #### The performing lab is in the report. #### NSEO #### [facility] #### HEMDF, LDH3, BMP3, MG3, PT, CEA2 #### [place] [address] [place] [address] #### B2GPM, B2GPA, B2GPG #### [address] Sodium [Moles/Vol] 142 mmol/L Normal 135-145 [facility] Comment on above: Performed By: #### C A19O, LUPUS #### The performing lab is in the report. #### NSEO #### [facility] #### HEMDF, LDH3, BMP3, MG3, PT, CEA2 #### [address] [place] [address] #### B2GPM, B2GPA, B2GPG #### [address] Anion gap [Moles/Vol] 10 mmol/L 3 - 13 mmol/L [facility] Work Phone: [phone] Calcium [Mass/Vol] 9.6 mg/dL 8.4 - 10. 4 mg/dL [facility] Work Phone: [phone] Chloride [Moles/Vol] 104 mmol/L 98 - 10 7 mmol/L [facility] Work Phone: [phone] CO2 [Moles/Vol] 27 mmol/L 22 - 30 mmol/L [facility] Work Phone: [phone] Creatinine [Mass/Vol] 0.82 mg/dL 0.52 - 1.25 mg/dL [facility] Work Phone: [phone] EGFR IF NonAfrican Salvadorean 89.9 mL/min >60 [email or web address] Work Phone: [phone] Comment on above: KDIGO guidelines pro [...] (S/P/Bld) [Vol rate/Area] mL/min/{1.73_m2} >60 mL/min [email or web address] Work Phone: [phone] Glucose [Mass/Vol] 109 mg/dL High 70 - 100 mg/dL [email or web address] Work Phone: [phone] Interpretation and review of laboratory results Abnormal [email or web address] Work Phone: [phone] Potassium [Moles/Vol] 3.9 mmol/L 3.5 - 5.1 mmol/L [email or web address] Work Phone: [phone] Sodium [Moles/Vol] 142 mmol/L 135 - 145 mmol/L [facility] Work Phone: [phone] Urea nitrogen (BldV) [Mass/Vol] 18 mg/dL High 7 - 17 mg/dL [email or web address] Work Phone: [phone] CBC with Auto Differentialon 10-23-2021 Absolute Baso # 0.1 10*3/uL 0.0 - 0.2 10*3/uL [email or web address] Work Phone: Absolute Neut # 6.6 10*3/uL 1.8 - 7.0 10*3/uL [facility] Work Phone: [phone] Basophils/100 WBC (Bld) 1.1 % 0.0 - 2.0 % [facility] Work Phone: [phone] Eosinophils (Bld) [#/Vol] 0.4 10*3/uL 0.0 - 0.5 10*3/uL [facility] Work Phone: [phone] Eosinophils/100 WBC (Bld) 3.9 % 1.0 - 6.0 % [facility] Work Phone: [phone] Granulocytes/100 WBC (Bld) 64.0 % 40.0 - 80.0 % [facility] Work Phone: [phone] Hematocrit (Bld) [Volume fraction] 35.1 % Low 40.0 - 52.0 % [facility] Work Phone: [phone] Hemoglobin (Bld) [Mass/Vol] 11.6 g/dL Low 13.0 - 18.0 g/dL [facility] Work Phone: [phone] Interpretation and review of laboratory results Abnormal [facility] Work Phone: [phone] Lymphocytes (Bld) [#/Vol] 2.6 10*3/uL 1.0 - 4.3 10*3/uL [facility] Work Phone: [phone] Lymphocytes/100 WBC (Bld) 25.0 % 20.0 - 40.0 % [facility] Work Phone: [phone] MCH (RBC) [Entitic mass] 28.4 pg 26.0 - 34.0 pg [facility] Work Phone: [phone] MCHC (RBC) [Mass/Vol] 33.1 % 32.0 - 36.0 % [facility] Work Phone: [phone] MCV (RBC) [Entitic vol] 85.9 fL 80.0 - 98.0 fL [facility] Work Phone: [phone] Monocytes (Bld) [#/Vol] 0.6 10*3/uL 0.0 - 0.8 10*3/uL [facility] Work Phone: [phone] Monocytes/100 WBC (Bld) 6.0 % 2.0 - 10.0 % [facility] Work Phone: [phone] Platelet distribution width (Bld) [Ratio] 17.4 % High 11.5 - 14.5 % [facility] Work Phone: [phone] Platelet mean volume (Bld) [Entitic vol] 8.1 fL 7.4 - 12.4 fL [facility] Work Phone: [phone] Comment on above: MPV is a calculated measurement using platelet volume ratio. Platelets (Bld) [#/Vol] 450 10*3/uL High 140 - 440 10*3/uL [facility] Work Phone: [phone] RBC (Bld) [#/Vol] 4.08 10*6/uL Low 4.40 - 5.9 0 10*6/uL [facility] Work Phone: [phone] WBC (Bld) [#/Vol] 10.3 10*3/uL 3.6 - 10.7 10*3/uL [facility] Work Phone: [phone] Test Performed by [facility], [address], [place] [id number] [place] [address] LAB [facility] Work Phone: [phone] CEAon 10-23-2021 CEA 0.8 ng/mL 0.0 - 3.0 ng/mL [facility] Work Phone: [phone] Test Performed by [facility], [address], [place] [id number] [place] [address] LAB [facility] Work Phone: [phone] Carcinoembryonic Agon 2021 Carcinoembryonic Ag. 0.8 ng/mL Normal 0.0-3.0 [facility] Comment on above: Performed By: #### C A19O, LUPUS #### The performing lab is in the report. #### NSEO #### [facility] #### HEMDF, LDH3, BMP3, MG3, PT, CEA2 #### [facility] [address] [place] [address] #### B2GPM, B2GPA, B2GPG #### [address] Hemogram w/ Autodiffon 10-23 Abs Baso Cnt 0.1 10*3/uL Normal 0.0-0.2 [facility] Comment on above: Performed By: #### C A19O, LUPUS #### The performing lab is in the report. #### NSEO #### [facility] #### HEMDF, LDH3, BMP3, MG3, PT, CEA2 #### [facility] [address] [place], [place] #### B2GPM, B2GPA, B2GPG #### [address] Abs Neutrophile Cnt 6.6 10*3/uL Normal 1.8-7.0 [facility] Comment on above: Performed By: #### C A19O, LUPUS #### The performing lab is in the report. #### NSEO #### [facility] #### HEMDF, LDH3, BMP3, MG3, PT, CEA2 #### [facility] [address] [place], [place] #### B2GPM, B2GPA, B2GPG #### [address] Basophils/100 WBC (Bld) 1.1 % Normal 0.0-2.0 [facility] Comment on above: Performed By: #### C A19O, LUPUS #### The performing lab is in the report. #### NSEO #### [facility] #### HEMDF, LDH3, BMP3, MG3, PT, CEA2 #### [facility] [address] [place], [place] #### B2GPM, B2GPA, B2GPG #### [address] Eosinophils (Bld) [#/Vol] 0.4 10*3/uL Normal 0.0-0.5 [facility] Comment on above: Performed By: #### C A19O, LUPUS #### The performing lab is in the report. #### NSEO #### [facility] #### HEMDF, LDH3, BMP3, MG3, PT, CEA2 #### [facility] [address] [place] [address] #### B2GPM, B2GPA, B2GPG #### [address] [phone] Eosinophils/100 WBC (Bld) 3.9 % Normal 1.0-6.0 [facility] Comment on above: Performed By: #### C A19O, LUPUS #### The performing lab is in the report. #### NSEO #### [facility] #### HEMDF, LDH3, BMP3, MG3, PT, CEA2 #### [address] [place], [place] #### B2GPM, B2GPA, B2GPG #### [address] [address] Erythrocyte distribution width (RBC) [Ratio] 17.4 % High 11.5-14.5 [facility] Comment on above: Performed By: #### C A19O, LUPUS #### The performing lab is in the report. #### NSEO #### [facility] #### HEMDF, LDH3, BMP3, MG3, PT, CEA2 #### [address] [place] [address] #### B2GPM, B2GPA, B2GPG #### [address] [phone] Granulocytes/100 WBC (Bld) 64.0 % Normal 40.0-80.0 [facility] Comment on above: Performed By: #### C A19O, LUPUS #### The performing lab is in the report. #### NSEO #### [facility] #### HEMDF, LDH3, BMP3, MG3, PT, CEA2 #### [place] [address] [place], [place] #### B2GPM, B2GPA, B2GPG #### [address] Hematocrit (Bld) [Volume fraction] 35.1 % Low 40.0-52.0 [facility] Comment on above: Performed By: #### C A19O, LUPUS #### The performing lab is in the report. #### NSEO #### [facility] #### HEMDF, LDH3, BMP3, MG3, PT, CEA2 #### [facility] [address] [place], [place] #### B2GPM, B2GPA, B2GPG #### [address] Hemoglobin (Bld) [Mass/Vol] 11.6 g/dL Low 13.0-18.0 [facility] Comment on above: Performed By: #### C A19O, LUPUS #### The performing lab is in the report. #### NSEO #### [facility] #### HEMDF, LDH3, BMP3, MG3, PT, CEA2 #### [facility] [address] [place] #### B2GPM, B2GPA, B2GPG #### [address] Lymphocytes (Bld) [#/Vol] 2.6 10*3/uL Normal 1.0-4.3 [facility] Comment on above: Performed By: #### C A19O, LUPUS #### The performing lab is in the report. #### NSEO #### [facility] #### HEMDF, LDH3, BMP3, MG3, PT, CEA2 #### [facility] [address] [place] #### B2GPM, B2GPA, B2GPG #### [address] Lymphocytes/100 WBC (Bld) 25.0 % Normal 20.0-40.0 [facility] Comment on above: Performed By: #### C A19O, LUPUS #### The performing lab is in the report. #### NSEO #### [facility] #### HEMDF, LDH3, BMP3, MG3, PT, CEA2 #### [facility] [address] [place] [address] #### B2GPM, B2GPA, B2GPG #### [address] MCH (RBC) [Entitic mass] 28.4 pg Normal 26.0-34.0 [facility] Comment on above: Performed By: #### C A19O, LUPUS #### The performing lab is in the report. #### NSEO #### [facility] #### HEMDF, LDH3, BMP3, MG3, PT, CEA2 #### [address] [place], [place] #### B2GPM, B2GPA, B2GPG #### [address] MCHC 33.1 % Normal 32.0-36.0 [facility] Comment on above: Performed By: #### C A19O, LUPUS #### The performing lab is in the report. #### NSEO #### [facility] #### HEMDF, LDH3, BMP3, MG3, PT, CEA2 #### [facility] [address] [place], [place] #### B2GPM, B2GPA, B2GPG #### [address] MCV (RBC) [Entitic vol] 85.9 fL Normal 80.0-98.0 [facility] Comment on above: Performed By: #### C A19O, LUPUS #### The performing lab is in the report. #### NSEO #### [facility] #### HEMDF, LDH3, BMP3, MG3, PT, CEA2 #### [facility] [address] [place] #### B2GPM, B2GPA, B2GPG #### [address] Monocytes (Bld) [#/Vol] 0.6 10*3/uL Normal 0.0-0.8 [facility] Comment on above: Performed By: #### C A19O, LUPUS #### The performing lab is in the report. #### NSEO #### [facility] #### HEMDF, LDH3, BMP3, MG3, PT, CEA2 #### [facility] [address] [place] #### B2GPM, B2GPA, B2GPG #### [address] Monocytes/100 WBC (Bld) 6.0 % Normal 2.0-10.0 [facility] Comment on above: Performed By: #### C A19O, LUPUS #### The performing lab is in the report. #### NSEO #### [facility] #### HEMDF, LDH3, BMP3, MG3, PT, CEA2 #### [facility] [address] [place] #### B2GPM, B2GPA, B2GPG #### [address] Platelet mean volume (Bld) [Entitic vol] 8.1 fL Normal 7.4-12.4 [facility] Comment on above: Result Comment: MPV is a calculated measurement using platelet volume ratio. Performed By: #### C A19O, LUPUS #### The performing lab is in the report. #### NSEO #### [facility] #### HEMDF, LDH3, BMP3, MG3, PT, CEA2 #### [facility] [address] [place] #### B2GPM, B2GPA, B2GPG #### [address] Platelets (Bld) [#/Vol] 450 10*3/uL High 140-440 [facility] Comment on above: Performed By: #### C A19O, LUPUS #### The performing lab is in the report. #### NSEO #### [facility] #### HEMDF, LDH3, BMP3, MG3, PT, CEA2 #### [facility] [address] [place] [address] #### B2GPM, B2GPA, B2GPG #### [address] RBC (Bld) [#/Vol] 4.08 10*6/uL Low 4.40-5.90 [facility] Comment on above: Performed By: #### C A19O, LUPUS #### The performing lab is in the report. #### NSEO #### [facility] #### HEMDF, LDH3, BMP3, MG3, PT, CEA2 #### [facility] [address] [place] [address] #### B2GPM, B2GPA, B2GPG #### [address] WBC (Bld) [#/Vol] 10.3 10*3/uL Normal 3.6-10.7 [facility] Comment on above: Performed By: #### C A19O, LUPUS #### The performing lab is in the report. #### NSEO #### [facility] #### HEMDF, LDH3, BMP3, MG3, PT, CEA2 #### [facility] [address] [place] [address] #### B2GPM, B2GPA, B2GPG #### [address] LDHon 10-23-2021 LDH 136 U/L Normal 120-246 [facility] Comment on above: Performed By: #### C A19O, LUPUS #### The performing lab is in the report. #### NSEO #### [facility] #### HEMDF, LDH3, BMP3, MG3, PT, CEA2 #### [facility] [address] [place] [address] #### B2GPM, B2GPA, B2GPG #### [facility] [address] [place] [address] Lactate Dehydrogenaseon 06- LD 136 U/L 120 - 246 U/L [facility] Work Phone: MRI ABDOMEN WO CONTRASTon Patient Name: ANDREW SIFUENTES Magnetic Resonance Imaging ACCESSION EXAM DATE/TIME PROCEDURE ORDERING PROVIDER [id number] 10/23/2021 11:08 EDT MRI Abdomen w/o Contrast WING SRIVASTAVA CPT code 64696 Reason For Exam (MRI Abdomen w/o Contrast) [...] Imaging ACCESSION EXAM DATE/TIME PROCEDURE ORDERING PROVIDER [id number] 10/23/2021 11:08 EDT MRI Abdomen w/o Contrast WING SRIVASTAVA CPT code 21888 Reason For Exam (MRI Abdomen w/o Contrast) [...] VLADIMIR Transcribed Date and Time: 10/23/2021 4:36 [facility] Work Phone: MRI ABDOMEN WO CONTRASTOrder ed By: Unknown Result on 10-23-2021 [facility] MRI Abdomen w/o Contraston 0 10-23-2021 MRI Abdomen w/o Contrast Patient Name: ANDREW SIFUENTES Magnetic Resonance Imaging ACCESSION EXAM DATE/TIME PROCEDURE ORDERING PROVIDER [id number] 10/23/2021 11:08 EDT MRI Abdomen w/o Contrast WING SRIVASTAVA CPT code 82919 Reason For Exam (MRI Abdomen w/o Contrast) [...] Transcribed Date and Time: 10/23/2021 4:36 Normal [facility] Magnesiumon 10-23-2021 Magnesium [Mass/Vol] 2.1 mg/dL Normal 1.6-2.3 [facility] Comment on above: Performed By: #### C A19O, LUPUS #### The performing lab is in the report. #### NSEO #### [facility] #### HEMDF, LDH3, BMP3, MG3, PT, CEA2 #### [facility] [address] [place] [address] #### B2GPM, B2GPA, B2GPG #### [facility] [address] [place] [address] Magnesium [Mass/Vol] 2.1 mg/dL 1.6 - 2 .3 mg/dL [facility] Work Phone: No Panel Informationon 10-23 Test Performed by [facility], [address] [place], [place] [id number] [place] [address] LAB [facility] Work Phone: Prothrombin Timeon 2 INR 1.1 Normal 0.9-1.1 [facility] Comment on above: Result Comment: Harry [...] HEMDF, LDH3, BMP3, MG3, PT, CEA2 #### [address] [place] [address] #### B2GPM, B2GPA, B2GPG #### [address] [phone] PT Coag (PPP) [Time] 12.2 s High 9.0-12.0 [facility] Comment on above: Result Comment: . Performed By: #### C A19O, LUPUS #### The performing lab is in the report. #### NSEO #### [facility] #### HEMDF, LDH3, BMP3, MG3, PT, CEA2 #### [address] [place] [address] #### B2GPM, B2GPA, B2GPG #### [address] [phone] Protime-INRon 10-23-2021 INR Coag (Bld) [Relative time] 1.1 {INR} [facility] Work Phone: Comment on above: Recommended [...] 12.2 s High 9.0 - 12.0 s [facility] Work Phone: Comment on above: . Test Performed by [facility], [address] [place] [address] [facility] Work Phone: Basic Metabolic Panelon 10-05 Calcium [Mass/Vol] 8.9 mg/dL Normal 8.4-10.4 [facility] Comment on above: Performed By: #### P T #### [facility] [address] [place] [address] Glucose [Mass/Vol] 110 mg/dL High 70-100 [facility] Comment on above: Performed By: #### P T #### [facility] [address] [place] [address] Urea nitrogen [Mass/Vol] 14 mg/dL Normal 7-17 [facility] Comment on above: Performed By: #### P T #### [facility] [address] [place] [address] Anion gap [Moles/Vol] 7 mmol/L Normal 3-13 [facility] Comment on above: Performed By: #### P T #### [facility] [address] [place] [address] CO2 [Moles/Vol] 26 mmol/L Normal 22-30 [facility] Comment on above: Performed By: #### P T #### [facility] [address] [place] [address] Creatinine [Mass/Vol] 0.71 mg/dL Normal 0.52-1.25 [facility] Comment on above: Performed By: #### P T #### [facility] [address] [place] [address] eGFR OTHER > 90.0 Normal >60 [facility] Comment on above: Result Comment: KDIG [...] secretion. Performed By: #### P T #### [facility] [address] [place] [address] GFR/1.73 sq M.predicted among blacks MDRD (S/P/Bld) [Vol rate/Area] mL/min/{1.73_m2} Normal >60 [facility] Comment on above: Performed By: #### P T #### [facility] [address] [place] [address] Potassium [Moles/Vol] 3.8 mmol/L Normal 3.5-5.1 [facility] Comment on above: Performed By: #### P T #### [facility] [address] [place] [address] Chloride [Moles/Vol] 106 mmol/L Normal 98-107 [facility] Comment on above: Performed By: #### P T #### [facility] [address] [place] [address] Sodium [Moles/Vol] 139 mmol/L Normal 135-145 [facility] Comment on above: Performed By: #### P T #### [facility] [address] [place] [address] Anion gap [Moles/Vol] 7 mmol/L 3 - 13 mmol/L [facility] Calcium [Mass/Vol] 8.9 mg/dL 8.4 - 10. 4 mg/dL [facility] Chloride [Moles/Vol] 106 mmol/L 98 - 10 7 mmol/L [facility] CO2 [Moles/Vol] 26 mmol/L 22 - 30 mmol/L [facility] Creatinine [Mass/Vol] 0.71 mg/dL 0.52 - 1.25 mg/dL [facility] EGFR IF NonAfrican Salvadorean >90.0 >60 mL/min [facility] Comment on above: KDIGO guidelines pro vide [...] - 10.7 10*3/uL [facility] Test Performed by [facility], [address] [place], [place] [id number] [place] [address] [facility] [address] Abdomen Pelvis Wo Contras ton 10-22-2021 Patient Name: ANDREW SIFUENTES Computed Tomography ACCESSION EXAM DATE/TIME PROCEDURE ORDERING PROVIDER [id number] 10/22/2021 13:[address] Abdomen/Pelvis (No SRIVASTAVA, WING PO, No IV) CPT code 86995 Reason For Exam (CT Abdomen/Pelvis (No PO, [...] HARLAN Transcribed Date and Time: 10/22/2021 2:37 [facility] RAD Humphrey Melton MD - 10/22/2021 Patient Name: ANDREW SIFUENTES Computed Tomography ACCESSION EXAM DATE/TIME PROCEDURE ORDERING PROVIDER [id number] 10/22/2021 13:[address] Abdomen/Pelvis (No SRIVASTAVA, WING PO, No IV) CPT code 69204 Reason For Exam (CT Abdomen/Pelvis (No PO, [...] Tomography ACCESSION EXAM DATE/TIME PROCEDURE ORDERING PROVIDER [id number] 10/22/2021 13:[address] Abdomen/Pelvis (No SRIVASTAVA, WING PO, No IV) CPT code 10503 Reason For Exam (CT Abdomen/Pelvis (No PO, [...] Transcribed Date and Time: 10/22/2021 2:37 Normal [facility] Hemogram w/ Autodiffon 10-22 Abs Baso Cnt 0.1 10*3/uL Normal 0.0-0.2 [facility] Comment on above: Performed By: #### P T #### [facility] [address] [place] [address] Abs Neutrophile Cnt 6.0 10*3/uL Normal 1.8-7.0 [facility] Comment on above: Performed By: #### P T #### [facility] [address] [place] [address] Basophils/100 WBC (Bld) 1.0 % Normal 0.0-2.0 [facility] Comment on above: Performed By: #### P T #### [facility] [address] [place] [address] Eosinophils (Bld) [#/Vol] 0.3 10*3/uL Normal 0.0-0.5 [facility] Comment on above: Performed By: #### P T #### [facility] [address] [place] [address] Eosinophils/100 WBC (Bld) 3.0 % Normal 1.0-6.0 [facility] Comment on above: Performed By: #### P T #### [facility] [address] [place] [address] Erythrocyte distribution width (RBC) [Ratio] 17.1 % High 11.5-14.5 [facility] Comment on above: Performed By: #### P T #### [facility] [address] [place] [address] Granulocytes/100 WBC (Bld) 64.1 % Normal 40.0-80.0 [facility] Comment on above: Performed By: #### P T #### [facility] [address] [place] [address] Hematocrit (Bld) [Volume fraction] 33.4 % Low 40.0-52.0 [facility] Comment on above: Performed By: #### P T #### [facility] [address] [place] [address] Hemoglobin (Bld) [Mass/Vol] 10.9 g/dL Low 13.0-18.0 [facility] Comment on above: Performed By: #### P T #### [facility] [address] [place] [address] Lymphocytes (Bld) [#/Vol] 2.5 10*3/uL Normal 1.0-4.3 [facility] Comment on above: Performed By: #### P T #### [facility] [address] [place] [address] Lymphocytes/100 WBC (Bld) 26.3 % Normal 20.0-40.0 [facility] Comment on above: Performed By: #### P T #### [facility] [facility] [address] [place] [address] MCH (RBC) [Entitic mass] 28.2 pg Normal 26.0-34.0 [facility] Comment on above: Performed By: #### P T #### [place] [address] [place] [address] MCHC 32.7 % Normal 32.0-36.0 [facility] Comment on above: Performed By: #### P T #### [facility] [address] [place] [address] MCV (RBC) [Entitic vol] 86.3 fL Normal 80.0-98.0 [facility] Comment on above: Performed By: #### P T #### [place] [address] [place] [address] Monocytes (Bld) [#/Vol] 0.5 10*3/uL Normal 0.0-0.8 [facility] Comment on above: Performed By: #### P T #### [facility] [address] [place] [address] Monocytes/100 WBC (Bld) 5.6 % Normal 2.0-10.0 [facility] Comment on above: Performed By: #### P T #### [facility] [address] [place] [address] Platelet mean volume (Bld) [Entitic vol] 7.6 fL Normal 7.4-12.4 [facility] Comment on above: Result Comment: MPV is a calculated measurement using platelet volume ratio. Performed By: #### P T #### [place] [address] [place] [address] Platelets (Bld) [#/Vol] 369 10*3/uL Normal 140-440 [facility] Comment on above: Performed By: #### P T #### [facility] [address] [place] [address] RBC (Bld) [#/Vol] 3.87 10*6/uL Low 4.40-5.90 [facility] Comment on above: Performed By: #### P T #### [facility] [address] [place] [address] WBC (Bld) [#/Vol] 9.4 10*3/uL Normal 3.6-10.7 [facility] Comment on above: Performed By: #### P T #### [facility] [address] [place] [address] Magnesiumon 10-22-2021 Magnesium [Mass/Vol] 2.0 mg/dL Normal 1.6-2.3 [facility] Comment on above: Performed By: #### P T #### [facility] [address] [place] [address] Magnesium [Mass/Vol] 2.0 mg/dL 1.6 - 2 .3 mg/dL [facility] No Panel Informationon 10-22 Radiology Study observation (narrative) [facility] Work Phone: Test Performed by [facility], [address] [place], [place] [address] [facility] Prothrombin Timeon 2 INR 1.1 Normal 0.9-1.1 [facility] Comment on above: Result Comment: Harry [...] HEMDF, LDH3, BMP3, MG3, PT, CEA2 #### [facility] [address] [place] [address] #### B2GPM, B2GPA, B2GPG #### [facility] [address] [place] [address] PT Coag (PPP) [Time] 11.8 s Normal 9.0-12.0 [facility] Comment on above: Result Comment: . Performed By: #### C A19O, LUPUS #### The performing lab is in the report. #### NSEO #### [facility] #### HEMDF, LDH3, BMP3, MG3, PT, CEA2 #### [facility] [address] [place] [address] #### B2GPM, B2GPA, B2GPG #### [address] [address] Protime-INRon 10-22-2021 INR Coag (Bld) [Relative time] 1.1 {INR} [facility] Work Phone: Comment on above: Recommended Anticoag [...] [Time] 11.8 s 9.0 - 12.0 s [facility] Work Phone: Comment on above: . Test Performed by [facility], [address], [place], [place] [address] [facility] Work Phone: VL Ankle Art Brachial Indice s Extremity Bilateralon 10-22-2021 [facility] Ankle Brachial Index Report Patient RADHA Sifuentes: 1950 Study 10/21/2021 Name: Andrew Gonzalez (71yrs) Date: Age: 71 Account: [id number] Gender: M Loc: 444W BP: Ordering Physician: Shruthi Malik College President: Rody Cross RDMS, RVT Interpreting Physician: Carina Call Location: [facility] Indications: Foot wounds. Originally ordered as a full PVR. Ordering FILTRATION PLANT OPERATOR had to modify the order to [...] supine position. Images were obtained using a Dodonations vascular ultrasound machine. Arterial pressure indices: + [...] electronically signed by Carina Call 10/22/2021 13:21 [facility] Carina Call MD - 10/22/2021 [facility] Ankle Brachial Index Report Patient GurpreetRADHA: 1950 Study 10/21/2021 Name: Andrew R (71yrs) Date: Age: 71 Account: [id number] Gender: M Loc: 444W BP: Ordering Physician: Shruthi Malik College President: Rody Cross RDMS RVT Interpreting Physician: Carina Call Location: [facility] Indications: Foot wounds. Originally ordered as a full PVR. Ordering FILTRATION PLANT OPERATOR had to modify the order to [...] supine position. Images were obtained using a Dodonations vascular ultrasound machine. Arterial pressure indices: + [...] by Carina Call 10/22/2021 13:21 [email or web address] Work [facility]: [facility] Work Phone: Basic Metabolic Panelon 10-05 Calcium [Mass/Vol] 9.1 mg/dL Normal 8.4-10.4 [facility] Comment on above: Performed By: #### C OVAG #### [facility] [address] [place] [address] Anion gap [Moles/Vol] 6 mmol/L Normal 3-13 [facility] Comment on above: Performed By: #### C OVAG #### [facility] [place] [address] CO2 [Moles/Vol] 29 mmol/L Normal 22-30 [facility] Comment on above: Performed By: #### C OVAG #### [facility] [address] [place] [address] Creatinine [Mass/Vol] 0.90 mg/dL Normal 0.52-1.25 [facility] Comment on above: Performed By: #### C OVAG #### [facility] [address] [place] [address] GFR/1.73 sq M.predicted among blacks MDRD (S/P/Bld) [Vol rate/Area] mL/min/{1.73_m2} Normal >60 [facility] Comment on above: Performed By: #### C OVAG #### [facility] [address] [place] [address] GFR/1.73 sq M.predicted among non-blacks MDRD (S/P/Bld) [Vol rate/Area] 86.6 mL/min/{1.73_m2} Normal >60 [facility] Comment on above: Result Comment: KDIG [...] secretion. Performed By: #### C OVAG #### [facility] [address] [place] [address] Glucose [Mass/Vol] 106 mg/dL High 70-100 [facility] Comment on above: Performed By: #### C OVAG #### [facility] [address] [place] [address] Urea nitrogen [Mass/Vol] 18 mg/dL High 7-17 [facility] Comment on above: Performed By: #### C OVAG #### [facility] [address] [place] [address] Chloride [Moles/Vol] 105 mmol/L Normal 98-107 [facility] Comment on above: Performed By: #### C OVAG #### [facility] [address] [place] [address] Potassium [Moles/Vol] 4.3 mmol/L Normal 3.5-5.1 [facility] Comment on above: Performed By: #### C OVAG #### [facility] [address] [place] [address] Sodium [Moles/Vol] 139 mmol/L Normal 135-145 [facility] Comment on above: Performed By: #### C OVAG #### [facility] [address] [place] [address] Anion gap [Moles/Vol] 6 mmol/L 3 - 13 mmol/L [facility] Calcium [Mass/Vol] 9.1 mg/dL 8.4 - 10. 4 mg/dL [facility] Chloride [Moles/Vol] 105 mmol/L 98 - 10 7 mmol/L [facility] CO2 [Moles/Vol] 29 mmol/L 22 - 30 mmol/L [facility] Creatinine [Mass/Vol] 0.9 mg/dL 0.52 - 1.25 mg/dL [facility] EGFR IF NonAfrican Salvadorean 86.6 mL/min >60 [facility] Comment on above: KDIGO guidelines [...] - 17 mg/dL [facility] Test Performed by [facility], [address] LAB [facility] C-Reactive Proteinon 022 CRP [Mass/Vol] 33.5 mg/L High 0.0-9.9 [facility] Comment on above: Result Comment: . Performed By: #### P T #### [facility] [address] [place] [address] CRP [Mass/Vol] 33.5 mg/L High 0.0 - 9.9 mg/L [facility] Comment on above: . Interpretation and review of laboratory results Abnormal [facility] Test Performed by [facility], [address] LAB [facility] CR Calcaneus 2+ Views Lefton 10-21-2021 CR Calcaneus 2+ Views Left Patient Name: AND[facility]W [facility]ENTES [id number] Diagnostic Radiology ACCESSION EXAM DATE/TIME PROCEDURE ORDERING PROVIDER [id number] 10/21/2021 15:30 EDT CR Calcaneus 2+ Views [id number] -SHRUTHI MALIK Left CPT code 86505 Reason For Exam (CR Calcaneus 2+ Views [...] Transcribed Date and Time: 10/21/2021 4:33 Normal [facility] CR Chest 1 View Frontalon CR Chest 1 View Frontal Patient Name: ANDREW SIFUENTES Diagnostic Radiology ACCESSION EXAM DATE/TIME PROCEDURE ORDERING PROVIDER [id number] 10/21/2021 08:16 EDT CR Chest 1 View Frontal [id number] MAY BOGGS CPT code 19103 Reason For Exam (CR Chest 1 View [...] Report Dictated on Final Dictating Physician: MD LODY WASSIM OSAMA Signed Date and Time: 10/21/2021 8:32 am Signed by: MD LOYD WASSIM OSAMA Transcribed Date and Time: 10/21/2021 8:33 Normal [facility] D-Dimer, Innovanceon 022 D-Dimer, Innovance 1.51 mg/L High <0.19-0.50 [facility] Comment on above: Result Comment: Inno saba D-Dimer values of <0.50 mg/L FEU can be used in combination with a pre-test probability model (e.g. Well's) to exclude pulmonary embolism (PE) disease, as well as an aid in the diagnosis of deep vein thrombosis (DVT). Performed By: #### P T #### [facility] [address] [place] [address] D-Dimer, Quantitativeon 10-05 D-Dimer, Quant 1.51 mg/L High <0.19 - 0.50 [facility] Comment on above: Innovance D-Dimer va lues of <0.50 mg/L FEU can be used in combination with a pre-test probability model (e.g. Well's) to exclude pulmonary embolism (PE) disease, as well as an aid in the diagnosis of deep vein thrombosis (DVT). Interpretation and review of laboratory results Abnormal [facility] Test Performed by [facility], [address], [place], [place] [address] [facility] ED Provider Noteon ED Provider Note [facility] ED EMERGENCY DEPARTMENT ENCOUNTER Pt Name: Andrew [...] ? Kidney stone ? Neuropathy ? 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 Attends Mosque Services: Not on file ? Active Member [...] LUNGS: Respirations (more content not included)... Normal [facility] Hemogramon 10-21-2021 Erythrocyte distribution width (RBC) [Ratio] 17.3 % High 11.5-14.5 [facility] Comment on above: Performed By: #### C OVAG #### [facility] [address] [place] [address] Hematocrit (Bld) [Volume fraction] 33.6 % Low 40.0-52.0 [facility] Comment on above: Performed By: #### C OVAG #### [facility] [address] [place] [address] Hemoglobin (Bld) [Mass/Vol] 10.9 g/dL Low 13.0-18.0 [facility] Comment on above: Performed By: #### C OVAG #### [facility] [address] [place] [address] MCH (RBC) [Entitic mass] 27.8 pg Normal 26.0-34.0 [facility] Comment on above: Performed By: #### C OVAG #### [facility] [address] [place] [address] MCHC 32.5 % Normal 32.0-36.0 [facility] Comment on above: Performed By: #### C OVAG #### [facility] [address] [place] [address] MCV (RBC) [Entitic vol] 85.6 fL Normal 80.0-98.0 [facility] Comment on above: Performed By: #### C OVAG #### [facility] [address] [place] [address] Platelet mean volume (Bld) [Entitic vol] 7.7 fL Normal 7.4-12.4 [facility] Comment on above: Result Comment: MPV is a calculated measurement using platelet volume ratio. Performed By: #### C OVAG #### [facility] [address] [place] [address] Platelets (Bld) [#/Vol] 404 10*3/uL Normal 140-440 [facility] Comment on above: Performed By: #### C OVAG #### [facility] [address] [place] [address] RBC (Bld) [#/Vol] 3.93 10*6/uL Low 4.40-5.90 [facility] Comment on above: Performed By: #### C OVAG #### [facility] [address] [place] [address] WBC (Bld) [#/Vol] 11.6 10*3/uL High 3.6-10.7 [facility] Comment on above: Performed By: #### C OVAG #### [facility] [address] [place] [address] Hemogram (CBC)on 10-21-2021 Hematocrit (Bld) [Volume fraction] 33.6 % Low 40.0 - 52.0 % [facility] Hemoglobin (Bld) [Mass/Vol] 10.9 g/dL Low 13.0 - 18.0 g/dL [facility] Interpretation and review of laboratory [...] - 10.7 10*3/uL [facility] Test Performed by [facility], [address] [place], [place], [place] [address] [facility] NM LUNG VENT/PERFUSION (VQ)o n 10-21-2021 Patient Name: ANDREW SIFUENTES Nuclear Medicine ACCESSION EXAM DATE/TIME PROCEDURE ORDERING PROVIDER [id number] 10/21/2021 07:55 EDT NM Pulmonary Perfusion [id number] MAY BOGGS w/ Vent Aerosol CPT code 49939 A9567 Reason For Exam (NM Pulmonary Perfusion [...] Medicine ACCESSION EXAM DATE/TIME PROCEDURE ORDERING PROVIDER [id number] 10/21/2021 07:55 EDT NM Pulmonary Perfusion [id number] MAY BOGGS w/ Vent Aerosol CPT code 96116 A9567 Reason For Exam (NM Pulmonary Perfusion [...] JOHN Transcribed Date and Time: 10/21/2021 8:49 [facility] Work Phone: NM LUNG VENT/PERFUSION (VQ)O rdered By: Henry Harvey on 10-21-2021 [facility] Work Phone: NM Pulmonary Perfusion w/ Ve nt Aerosol or Gason 10-21-2021 NM Pulmonary Perfusion w/ Vent Aerosol or Gas Patient Name: ANDREW SIFUENTES Nuclear Medicine ACCESSION EXAM DATE/TIME PROCEDURE ORDERING PROVIDER [id number] 10/21/2021 07:55 EDT NM Pulmonary Perfusion [id number] -MAY CASH w/ Vent Aerosol CPT code 48765 A9567 Reason For Exam (NM Pulmonary Perfusion [...] Transcribed Date and Time: 10/21/2021 8:49 Normal [facility] No Panel Informationon 10-21 Radiology Study observation (narrative) [facility] Work Phone: Prothrombin Timeon 2 INR 1.1 Normal 0.9-1.1 [facility] Comment on above: Result Comment: Harry [...] Infarction Performed By: #### C OVAG #### [facility] [address] [place] [address] PT Coag (PPP) [Time] 11.5 s Normal 9.0-12.0 [facility] Comment on above: Result Comment: . Performed By: #### C OVAG #### [facility] [address] [place] [address] Protime-INRon 10-21-2021 INR Coag (Bld) [Relative time] 1.1 {INR} [facility] Comment on above: Recommended Anticoag ulant Therapy: [...] [Time] 11.5 s 9.0 - 12.0 s [facility] Comment on above: . Test Performed by [facility], [address] LAB [facility] Retic Count(%)on 10-21-2021 Retic Count(%) 1.6 Normal [facility] Comment on above: Result Comment: Newb orn < 5% Adults 0.5 - 1.5% Performed By: #### P T #### [facility] [address] [place] [address] Reticulocyteson 10-21-[address] Pct 1.6 [facility] Comment on above: < 5% Adults 0.5 - 1.5% Test Performed by [facility], [address] [place], [place] [address] [place] [address] LAB [facility] Sed Rateon 10-21-2021 Sed Rate 63 mm/h High 0-10 [facility] Comment on above: Performed By: #### P T #### [facility] [address] [place] [address] Sedimentation Rateon 022 Interpretation and review of laboratory results Abnormal [facility] Sed Rate 63 mm/h High 0 - 10 mm/h [facility] Test Performed by [facility], [address], [place], [place] [address] [facility] VL CARMELLA Upr/L Extremity Art 1 -2 Levelson 10-21-2021 VL CARMELLA Upr/L Extremity Art 1-2 Levels Patient Name: ANDREW SIFUENTES Ultrasound ACCESSION EXAM DATE/TIME PROCEDURE ORDERING PROVIDER [id number] 10/21/2021 16:12 EDT VL Upr/L Extremity Art 146205 -SHRUTHI MALIK 1-2 Levels CPT code 86155 Reason For Exam (VL Upr/L Extremity Art 1-2 Levels) both lower legs CARMELLA for both feet wounds. Report [facility] Ankle Brachial Index Report Patient RADHA Sifuentes: 1950 Study 10/21/2021 Name: Andrew Gonzalez (71yrs) Date: Age: 71 Account: [id number] Gender: M Loc: 444W BP: Ordering Physician: Shruthi Malik College President: Rody Cross RDMS, RVT Interpreting Physician: Carina Call Location: [facility] Indications: Foot wounds. Originally ordered as a full PVR. Ordering FILTRATION PLANT OPERATOR had to modify the order to [...] supine position. Images were obtained using a [employer] vascular ultrasound machine. Arterial pressure indices: + [...] CARINA HENNESSY Cardiovascular ACCESSION EXAM DATE/TIME PROCEDURE [id number] 10/21/2021 16:12 EDT VL Upr/L Extremity Art 1-2 Levels CPT code 07098 Reason For Exam (VL Upr/L Extremity Art 1-2 Levels) both lower legs CARMELLA for both feet wounds. Report [facility] Ankle Brachial Index Report Patient DO GurpreetB: 1950 Study 10/21/2021 Name: Andrew Gonzalez (71yr) Date: Age: 71 Account: [id number] Cardiovascular Report Gender: M Loc: 444W BP: Ordering Physician: Shruthi Malik College President: Rody Cross RDMS, RVT Interpreting Physician: Carina Call Location: [facility] Indications: Foot wounds. Originally ordered as a full PVR. Ordering FILTRATION PLANT OPERATOR had to modify the order to [...] in th (more content not included)... Normal [facility] VL LOWER EXTREMITY BILATERAL VENOUS DUPLEXon 10-21-2021 [facility] Lower Extremity Venous Duplex Report Patient DO GurpreetB: 1950 Study 10/21/2021 Name: Andrew Gonzalez (71yrs) Date: Age: 71 Account: [id number] Gender: M Loc: 444 BP: Ordering Physician: May Cash College President: Rody Cross RDMS, RVT Interpreting Physician: Carina Call Location: [facility] Indications: Bilateral lower leg edema. CRITICAL RESULTS: [...] supine position. Images were obtained using a [employer]on[employer] vascular ultrasound machine. Venous flow and imaging: [...] +-------- --------+ + (more content not included)... [facility] Carina Call MD - 10/21/2021 [facility] Lower Extremity Venous Duplex Report Patient DO GurpreetB: 1950 Study 10/21/2021 Name: Andrew Gonzalez (71yrs) Date: Age: 71 Account: [id number] Gender: M Loc: 444 BP: Ordering Physician: May Cash College President: Rody Cross RDMS, RVT Interpreting Physician: Carina Call Location: [facility] Indications: Bilateral lower leg edema. CRITICAL RESULTS: [...] supine position. Images were obtained using a [employer]onations vascular ultrasound machine. Venous flow and imaging: [...] + + +----- (more content not included)... [employer] Work Phone: VL LOWER EXTREMITY BILATERAL VENOUS DUPLEXOrdered By: Carina Call on 10-21-2021 [facility] Work Phone: VL Venous Duplex US Lower Ex t Bilateralon 10-21-2021 VL Venous Duplex US Lower Ext Bilateral Patient Name: ANDREW SIFUENTES Ultrasound ACCESSION EXAM DATE/TIME PROCEDURE ORDERING PROVIDER [id number] 10/21/2021 09:53 EDT VL Venous Duplex US [id number] -MAY CASH Lower Ext Bilateral CPT code 58841 Reason For Exam (VL Venous Duplex US Lower Ext Bilateral) bilateral sqwelling redness Report [facility] Lower Extremity Venous Duplex Report Luís Sifuentes DOB: 1950 Study 10/21/2021 Name: Andrew Gonzalez (71yr) Date: Age: 71 Account: [id number] Gender: M Loc: 444 BP: Ordering Physician: May Cash College President: Rody Cross RDMS, T Interpreting Physician: Carina Call Location: [facility] Indications: Bilateral lower leg edema. CRITICAL RESULTS: [...] supine position. Images were obtained using a [employer] vascular ultrasound machine. Venous flow and imaging: [...] + + (more content not included)... Normal [facility] XR CALCANEUS LEFT (MIN 2 VIE WS)on 10-21-2021 Patient Name: AND[facility]W [facility]ENTES [id number] Diagnostic Radiology ACCESSION EXAM DATE/TIME PROCEDURE ORDERING PROVIDER [id number] 10/21/2021 15:30 EDT CR Calcaneus 2+ Views [id number] -SHRUTHI MALIK Left CPT code 99964 Reason For Exam (CR Calcaneus 2+ Views [...] MD - 10/21/2021 Patient Name: ANDREW SIFUENTES [facility] [id number] Diagnostic Radiology ACCESSION EXAM DATE/TIME PROCEDURE ORDERING PROVIDER [id number] 10/21/2021 15:30 EDT CR Calcaneus 2+ Views [id number] -SHRUTHI MALIK Left CPT code 92961 Reason For Exam (CR Calcaneus 2+ Views [...] J Transcribed Date and Time: 10/21/2021 4:33 [facility] Work Phone: XR CALCANEUS LEFT (MIN 2 VIE WS)Ordered By: Alan Wong on 10-21-2021 [facility] Work Phone: XR Chest 1 VWon 10-21-2021 Patient Name: ANDREW SIFUENTES Diagnostic Radiology ACCESSION EXAM DATE/TIME PROCEDURE ORDERING PROVIDER [id number] 10/21/2021 08:16 EDT CR Chest 1 View Frontal [id number] FOSTER CPT code 80451 Reason For Exam (CR Chest 1 View [...] OSAMA Transcribed Date and Time: 10/21/2021 8:33 [facility] Venus Loyd MD - 10/21/2021 Patient Name: ANDREW SIFUENTES Diagnostic Radiology ACCESSION EXAM DATE/TIME PROCEDURE ORDERING PROVIDER [id number] 10/21/2021 08:16 EDT CR Chest 1 View Frontal [id number] CONTI CPT code 66468 Reason For Exam (CR Chest 1 View [...] RAMOS Transcribed Date and Time: 10/21/2021 8:33 [facility] Work Phone: XR Chest 1 VWOrdered By: Natalie Loyd on 10-21-2021 [facility] Work Phone: Basophil percentageon 2021 Chloride [Moles/Vol] 108 mmol/L 98-107 [facility] Work Phone: [phone] Glucose [Mass/Vol] 93 mg/dL 74-106 [facility] Work Phone: Potassium [Moles/Vol] 3.9 mmol/L 3.5-5.1 [facility] Work Phone: [phone] Sodium [Moles/Vol] 140 mmol/L 136-145 [facility] Work Phone: WBC (Bld) [#/Vol] 8.7 10*3/uL 4.4-11.0 [facility] Work Phone: Blood erythrocytes count (nu mber/volume)on 10-20-2021 RBC (Bld) [#/Vol] 3.63 10*6/uL 4.6-6.2 [facility] Work Phone: [phone] Blood hemoglobin measurement (mass/volume)on 10-20-2021 Hemoglobin (Bld) [Mass/Vol] 10.1 g/dL 13.0-16.5 [facility] Work Phone: Blood platelet mean volumeon 10-20-2021 Platelet mean volume (Bld) [Entitic vol] 9.8 fL 6.2-12.0 [facility] Work Phone: [phone] Determination of erythrocyte mean corpuscular volume (MCV)on 10-20-2021 MCV (RBC) [Entitic vol] 90.1 fL 80-94 [facility] Work Phone: Hematocrit Auto (Bld) [Volum e fraction]on 10-20-2021 Hematocrit (Bld) [Volume fraction] 32.7 % 40-54 [facility] Work Phone: Laboratory - Chemistry and C hemistry - challengeon 10-20-2021 CO2 [Moles/Vol] 25.0 mmol/L 21.0-32.0 [facility] Work Phone: Urea nitrogen/Creatinine [Mass ratio] 17.4 mg/mg 10-20 [facility] Work Phone: Laboratory - Hematology and Cell countson 10-20-2021 Erythrocyte distribution width (RBC) [Entitic vol] 52.1 fL 35.1-43.9 [facility] Work Phone: Erythrocyte distribution width (RBC) [Ratio] 15.6 % 11.6-14.6 [facility] Work Phone: MCH (RBC) [Entitic mass] 27.8 pg 27.0-32.0 [facility] Work Phone: MCHC Auto (RBC) [Mass/Vol]on 10-20-2021 MCHC (RBC) [Mass/Vol] 30.9 g/dL 32-36 [facility] Work Phone: No Panel Informationon 10-20 Estimated GFR (MDRD) Amer 133 mL/min >60 [facility] Work Phone: Comment on above: GFR Calc Estimated GFR (MDRD) Non-Af Amer 110 mL/min >60 [facility] Work Phone: Comment on above: Non- GFR Calc Platelets bldon 10-20-2021 Platelets (Bld) [#/Vol] 404 10*3/uL 150-450 [facility] Work Phone: Serum or plasma calcium oral urement (mass/volume)on 10-20-2021 Calcium [Mass/Vol] 9.1 mg/dL 8.5-10.1 [facility] Work Phone: Serum or plasma creatinine m easurement (mass/volume)on 10-20-2021 Creatinine [Mass/Vol] 0.75 mg/dL 0.70-1.30 [facility] Work Phone: Comment on above: The validity of the calculated GFR & GFRAA in patients over 70 years has not been determined. Clinical correlation is essential. Serum or plasma urea nitroge n measurement (mass/volume)on 10-20-2021 Urea nitrogen [Mass/Vol] 13 mg/dL 7-18 [facility] Work Phone: Thin prep Papanicolaou smear with manual screeningon 10-20-2021 Thin prep Papanicolaou smear with manual screening 7 5-15 [facility] Work Phone: CNPNon 10-17-2021 CNPN Normal [facility] Absolute lymphocyte counton 09-19-2021 Lymphocytes Auto (Unsp spec) [#/Vol] 1.74 10*3/uL 0.83-4.51 [facility] Work Phone: Basophil percentageon 2021 Basophils/100 WBC (Bld) 0.6 % 0-1 [facility] Work Phone: Bilirubin [Mass/Vol] 0.30 mg/dL 0.20-1.00 [facility] Work Phone: Comment on above: For patients on eltr ombopag therapy, use of [employer] [place] TBIL is not recommended. Chloride [Moles/Vol] 105 mmol/L 98-107 [facility] Work Phone: Eosinophils/100 WBC (Bld) 3.5 % 0-5 [facility] Work Phone: Glucose [Mass/Vol] 91 mg/dL 74-106 [facility] Work Phone: Neutrophils (Bld) [#/Vol] 4.2 10*3/uL 2.0-7.7 [facility] Work Phone: Neutrophils/100 WBC (Bld) 62.6 % 47-70 [facility] Work Phone: Potassium [Moles/Vol] 3.8 mmol/L 3.5-5.1 [facility] Work Phone: Protein [Mass/Vol] 6.3 g/dL 6.4-8.2 [facility] Work Phone: Sodium [Moles/Vol] 139 mmol/L 136-145 [facility] Work Phone: WBC (Bld) [#/Vol] 6.6 10*3/uL 4.4-11.0 [facility] Work Phone: Blood erythrocytes count (nu mber/volume)on 09-19-2021 RBC (Bld) [#/Vol] 3.47 10*6/uL 4.6-6.2 [facility] Work Phone: Blood hemoglobin measurement (mass/volume)on 09-19-2021 Hemoglobin (Bld) [Mass/Vol] 10.2 g/dL 13.0-16.5 [facility] Work Phone: Blood lymphocytes/100 leukoc yteson 09-19-2021 Lymphocytes/100 WBC (Bld) 26.2 % 19-41 [facility] Work Phone: Blood monocytes/100 leukocyt eson 09-19-2021 Monocytes/100 WBC (Bld) 6.5 % 0-10 [facility] Work Phone: Blood platelet mean volumeon 09-19-2021 Platelet mean volume (Bld) [Entitic vol] 9.6 fL 6.2-12.0 [facility] Work Phone: Determination of erythrocyte mean corpuscular volume (MCV)on 09-19-2021 MCV (RBC) [Entitic vol] 94.8 fL 80-94 [facility] Work Phone: Hematocrit Auto (Bld) [Volum e fraction]on 09-19-2021 Hematocrit (Bld) [Volume fraction] 32.9 % 40-54 [facility] Work Phone: Laboratory - Chemistry and C hemistry - challengeon 09-19-2021 ALP [Catalytic activity/Vol] 109 U/L 45-117 [facility] Work Phone: ALT [Catalytic activity/Vol] 23 U/L 16-61 [facility] Work Phone: CO2 [Moles/Vol] 26.0 mmol/L 21.0-32.0 [facility] Work Phone: Globulin (S) [Mass/Vol] 3.5 g/dL 2.2-4.2 [facility] Work Phone: Urea nitrogen/Creatinine [Mass ratio] 15.3 mg/mg 10-20 [facility] Work Phone: Laboratory - Hematology and Cell countson 09-19-2021 Erythrocyte distribution width (RBC) [Entitic vol] 59.4 fL 35.1-43.9 [facility] Work Phone: Erythrocyte distribution width (RBC) [Ratio] 17.1 % 11.6-14.6 [facility] Work Phone: Immature granulocytes/100 WBC (Bld) 0.600 % 0.0-0.9 [facility] Work Phone: Comment on above: IG% - Immature Granu locytes (promyelocytes, myelocytes and metamyelocytes) > 1% indicates that a LEFT SHIFT is Present. MCH (RBC) [Entitic mass] 29.4 pg 27.0-32.0 [facility] Work Phone: Nucleated RBC/100 WBC (Bld) [Ratio] 0 % 0-5 [facility] Work Phone: MCHC Auto (RBC) [Mass/Vol]on 09-19-2021 MCHC (RBC) [Mass/Vol] 31.0 g/dL 32-36 [facility] Work Phone: No Panel Informationon 09-19 Estimated GFR (MDRD) Amer 175 mL/min >60 [facility] Work Phone: Comment on above: GFR Calc Estimated GFR (MDRD) Non-Af Amer 145 mL/min >60 [facility] Work Phone: Comment on above: Non- GFR Calc Platelets bldon 09-19-2021 Platelets (Bld) [#/Vol] 342 10*3/uL 150-450 [facility] Work Phone: Serum or plasma albumin oral urement (mass/volume)on 09-19-2021 Albumin [Mass/Vol] 2.8 g/dL 3.2-5.0 [facility] Work Phone: Serum or plasma albumin/glob ulin mass ratioon 09-19-2021 Albumin/Globulin [Mass ratio] 0.8 {ratio} 0.9-2.4 [facility] Work Phone: Serum or plasma calcium oral urement (mass/volume)on 09-19-2021 Calcium [Mass/Vol] 9.0 mg/dL 8.5-10.1 [facility] Work Phone: Serum or plasma creatinine m easurement (mass/volume)on 09-19-2021 Creatinine [Mass/Vol] 0.59 mg/dL 0.70-1.30 [facility] Work Phone: Comment on above: The validity of the calculated GFR & GFRAA in patients over 70 years has not been determined. Clinical correlation is essential. Serum or plasma urea nitroge n measurement (mass/volume)on 09-19-2021 Urea nitrogen [Mass/Vol] 9 mg/dL 7-18 [facility] Work Phone: Thin prep Papanicolaou smear with manual screeningon 09-19-2021 Thin prep Papanicolaou smear with manual screening 12 U/L 15-37 [facility] Work Phone: Thin prep Papanicolaou smear with manual screening 8 5-15 [facility] Work Phone: OPERATIVE NOon 08-22-2021 OPERATIVE NO Normal [facility] Basic metabolic 2000 panelon 08-19-2021 Anion gap [Moles/Vol] 10 mmol/L Normal 9-18 [facility] Comment on above: Order Comment: Speci men Type: BLOOD SPECIMENOrdering Facility: [facility] Address: [address] [place] [address] Performed By: #### 2 4321-2 ####[facility] LABORATORYCLIA [id number] [place] [address] [place] Calcium [Mass/Vol] 8.6 mg/dL Normal 8.5-10.2 [facility] Comment on above: Order Comment: Speci men Type: BLOOD SPECIMENOrdering Facility: [facility] Address: [address] [place] [address] Performed By: #### 2 4321-2 ####[facility] LABORATORYCLIA [id number] [address] [place] Chloride [Moles/Vol] 99 mmol/L Normal 97-105 [facility] Comment on above: Order Comment: Speci men Type: BLOOD SPECIMENOrdering Facility: [facility] Address: [address] [place] [address] Performed By: #### 2 4321-2 ####[facility] LABORATORYCLIA [id number] [address] [place] CO2 [Moles/Vol] 29 mmol/L Normal 22-30 [facility] Comment on above: Order Comment: Speci men Type: BLOOD SPECIMENOrdering Facility: [facility] Address: [address] [place] [address] Performed By: #### 2 4321-2 ####[facility] LABORATORYCLIA [id number] [place] [address] [place] Creatinine [Mass/Vol] 0.58 mg/dL Low 0.73-1.22 [facility] Comment on above: Order Comment: Speci men Type: BLOOD SPECIMENOrdering Facility: [facility] Address: [address] [place] [address] Performed By: #### 2 4321-2 ####[facility] LABORATORYCLIA [id number] [address] [place] ESTIMATED GLOMERULAR FILTRATION RATE 106 mL/min/1.73m??? Normal >=60 [facility] Comment on above: Order Comment: Shira feldman Type: BLOOD SPECIMENOrdering Facility: [facility] Address: [address] [place] [address] Result Comment: Luzmaria mated Glomerular Filtration Rate [...] By: #### 2 4321-2 ####[facility] LABORATORYCLIA [id number] [place] [address] [place] Glucose [Mass/Vol] 101 mg/dL High 74-99 [facility] Comment on above: Order Comment: Shira feldman Type: BLOOD SPECIMENOrdering Facility: [facility] Address: [address] [place] [address] Result Comment: The [place] [employer] (ADA) provides guidance for cutoff [...] Standards of Medical Care in Diabetes 2016, [place] [employer]. Diabetes Care. 2016.39(Suppl 1). Performed By: #### 2 4321-2 ####[facility]ORATORYCLIA [id number] [place] [address] [place] Potassium [Moles/Vol] 3.5 mmol/L Low 3.7-5.1 [facility] Comment on above: Order Comment: Shira feldman Type: BLOOD SPECIMENOrdering Facility: [facility] Address: [address] [address] Performed By: #### 2 4321-2 ####[facility]ORATORYCLIA [id number] [address] [place] Sodium [Moles/Vol] 138 mmol/L Normal 136-144 [facility] Comment on above: Order Comment: Speci men Type: BLOOD SPECIMENOrdering Facility: [facility] Address: [address] [place] [address] Performed By: #### 2 4321-2 ####[facility] LABORATORYCLIA [id number] [place] [address] [place] Urea nitrogen [Mass/Vol] 11 mg/dL Normal 9-24 [facility] Comment on above: Order Comment: Speci men Type: BLOOD SPECIMENOrdering Facility: [facility] Address: [address] [place] [address] Performed By: #### 2 4321-2 ####[facility] LABORATORYCLIA [id number] [address] [place] CASE MANAGEMon 08-19-2021 CASE MANAGEM Normal [facility] CBC W Auto Differential pane l (Bld)on 08-19-2021 Basophils (Bld) [#/Vol] 0.03 10*3/uL Normal <0.11 [facility] Comment on above: Order Comment: Speci men Type: BLOOD SPECIMENOrdering Facility: [facility] Address: [address] [place] [address] Performed By: #### 5 7021-8 ####[facility] LABORATORYCLIA [id number] [address] [place] Basophils/100 WBC (Bld) 0.4 % Normal [facility] Comment on above: Order Comment: Speci men Type: BLOOD SPECIMENOrdering Facility: [facility] Address: [address] [place] [address] Performed By: #### 5 7021-8 ####[facility]ORATORYCLIA [id number] [address] Differential cell count method Nom (Bld) Auto Normal [facility] Comment on above: Order Comment: Speci men Type: BLOOD SPECIMENOrdering Facility: [facility] Address: [address] [place] [address] Performed By: #### 5 7021-8 ####[facility]ORATORYCLIA [id number] [address] [place] Eosinophils (Bld) [#/Vol] 0.24 10*3/uL Normal <0.46 [facility] Comment on above: Order Comment: Speci men Type: BLOOD SPECIMENOrdering Facility: [facility] Address: [address] [place] [address] Performed By: #### 5 7021-8 ####[facility]ORATORYCLIA [id number] [address] Eosinophils/100 WBC (Bld) 3.1 % Normal [facility] Comment on above: Order Comment: Speci men Type: BLOOD SPECIMENOrdering Facility: [facility] Address: [address] [place] [address] Performed By: #### 5 7021-8 ####[facility]ORATORYCLIA [id number] [address] [place] Erythrocyte distribution width (RBC) [Ratio] 17.5 % High 11.5-15.0 [facility] Comment on above: Order Comment: Speci men Type: BLOOD SPECIMENOrdering Facility: [facility] Address: [address] [place] [address] Performed By: #### 5 7021-8 ####[facility] LABORATORYCLIA [id number] [address] Hematocrit (Bld) [Volume fraction] 30.2 % Low 39.0-51.0 [facility] Comment on above: Order Comment: Speci men Type: BLOOD SPECIMENOrdering Facility: [facility] Address: [address] [place] [address] Performed By: #### 5 7021-8 ####[facility]ORATORYCLIA [id number] [address] [place] Hemoglobin (Bld) [Mass/Vol] 9.6 g/dL Low 13.0-17.0 [facility] Comment on above: Order Comment: Speci men Type: BLOOD SPECIMENOrdering Facility: [facility] Address: [address] [place] [address] Performed By: #### 5 7021-8 ####[facility]ORATORYCLIA [id number] [address] IMMATURE GRAN % 0.4 % Normal [facility] Comment on above: Order Comment: Speci men Type: BLOOD SPECIMENOrdering Facility: [facility] Address: [address] [place] [address] Performed By: #### 5 7021-8 ####[facility]ORATORYCLIA [id number] [address] IMMATURE GRAN ABS 0.03 k/uL Normal <0.10 [facility] Comment on above: Order Comment: Speci men Type: BLOOD SPECIMENOrdering Facility: [facility] Address: [address] [place] [address] Performed By: #### 5 7021-8 ####[facility] LABORATORYCLIA [id number] [address] [place] Lymphocytes (Bld) [#/Vol] 1.71 10*3/uL Normal 1.00-4.00 [facility] Comment on above: Order Comment: Speci men Type: BLOOD SPECIMENOrdering Facility: [facility] Address: [address] [place] [address] Performed By: #### 5 7021-8 ####[facility]ORATORYCLIA [id number] [address] Lymphocytes/100 WBC (Bld) 22.2 % Normal [facility] Comment on above: Order Comment: Speci men Type: BLOOD SPECIMENOrdering Facility: [facility] Address: [address] [place] [address] Performed By: #### 5 7021-8 ####[facility]ORATORYCLIA [id number] [address] MCH (RBC) [Entitic mass] 29.4 pg Normal 26.0-34.0 [facility] Comment on above: Order Comment: Speci men Type: BLOOD SPECIMENOrdering Facility: [facility] Address: [address] [place] [address] Performed By: #### 5 7021-8 ####[facility]ORATORYCLIA [id number] [address] MCHC (RBC) [Mass/Vol] 31.8 g/dL Normal 30.5-36.0 [facility] Comment on above: Order Comment: Speci men Type: BLOOD SPECIMENOrdering Facility: [facility] Address: [address] [place] [address] Performed By: #### 5 7021-8 ####[facility]ORATORYCLIA [id number] [address] STATES OF [facility] MCV (RBC) [Entitic vol] 92.6 fL Normal 80.0-100.0 [facility] Comment on above: Order Comment: Speci men Type: BLOOD SPECIMENOrdering Facility: [facility] Address: [address] [place] [address] Performed By: #### 5 7021-8 ####[facility]ORATORYCLIA [id number] [address] Monocytes (Bld) [#/Vol] 0.50 10*3/uL Normal <0.87 [facility] Comment on above: Order Comment: Speci men Type: BLOOD SPECIMENOrdering Facility: [facility] Address: [address] [place] [address] Performed By: #### 5 7021-8 ####[facility]ORATORYCLIA [id number] [address] Monocytes/100 WBC (Bld) 6.5 % Normal [facility] Comment on above: Order Comment: Speci men Type: BLOOD SPECIMENOrdering Facility: [facility] Address: [address] [place] [address] Performed By: #### 5 7021-8 ####[facility]ORATORYCLIA [id number] [address] [place] Neutrophils (Bld) [#/Vol] 5.20 10*3/uL Normal 1.45-7.50 [facility] Comment on above: Order Comment: Speci men Type: BLOOD SPECIMENOrdering Facility: [facility] Address: [address] [place] [address] Performed By: #### 5 7021-8 ####[facility]ORATORYCLIA [id number] [address] [place] Neutrophils/100 WBC (Bld) 67.4 % Normal [facility] Comment on above: Order Comment: Speci men Type: BLOOD SPECIMENOrdering Facility: [facility] Address: [address] [place] [address] Performed By: #### 5 7021-8 ####[facility]ORATORYCLIA [id number] [address] [place] Nucleated RBC (Bld) [#/Vol] 10*3/uL Normal <0.01 [facility] Comment on above: Order Comment: Speci men Type: BLOOD SPECIMENOrdering Facility: [facility] Address: [address] [place] [address] Performed By: #### 5 7021-8 ####[facility]ORATORYCLIA [id number] [address] [place] Nucleated RBC/100 WBC (Bld) [Ratio] 0.0 /100 WBC Normal [facility] Comment on above: Order Comment: Speci men Type: BLOOD SPECIMENOrdering Facility: [facility] Address: [address] [place] [address] Performed By: #### 5 7021-8 ####[facility]ORATORYCLIA [id number] [address] [place] Platelet mean volume (Bld) [Entitic vol] 8.9 fL Low 9.0-12.7 [facility] Comment on above: Order Comment: Speci men Type: BLOOD SPECIMENOrdering Facility: [facility] Address: [address] [place] [address] Performed By: #### 5 7021-8 ####[facility]ORATORYCLIA [id number] [address] [place] Platelets (Bld) [#/Vol] 408 10*3/uL High 150-400 [facility] Comment on above: Order Comment: Speci men Type: BLOOD SPECIMENOrdering Facility: [facility] Address: [address] [place] [address] Performed By: #### 5 7021-8 ####[facility]ORATORYCLIA [id number] [place] [address] [place] RBC (Bld) [#/Vol] 3.26 10*6/uL Low 4.20-6.00 [facility] Comment on above: Order Comment: Speci men Type: BLOOD SPECIMENOrdering Facility: [facility] Address: [address] [place] [address] Performed By: #### 5 7021-8 ####[facility]ORATORYCLIA [id number] [place] [address] [place] WBC (Bld) [#/Vol] 7.71 10*3/uL Normal 3.70-11.00 [facility] Comment on above: Order Comment: Speci men Type: BLOOD SPECIMENOrdering Facility: [facility] Address: [address] [place] [address] Performed By: #### 5 7021-8 ####[facility]ORATORYCLIA [id number] [address] [place] CNDSon 08-19-2021 CNDS Normal [facility] CONSULT PROGon 08-19-2021 CONSULT PROG Normal [facility] THERAPY NTon 08-19-2021 THERAPY NT Normal [facility] Basic metabolic 2000 panelon 08-18-2021 Anion gap [Moles/Vol] 11 mmol/L Normal 9-18 [facility] Comment on above: Order Comment: Speci men Type: BLOOD SPECIMENOrdering Facility: [facility] Address: [address] [place] [address] Performed By: #### 2 4321-2 ####[facility]ORATORYCLIA [id number] [place] [address] [place] Calcium [Mass/Vol] 8.6 mg/dL Normal 8.5-10.2 [facility] Comment on above: Order Comment: Speci men Type: BLOOD SPECIMENOrdering Facility: [facility] Address: [address] [place] [address] Performed By: #### 2 4321-2 ####[facility]ORATORYCLIA [id number] [place] [address] [place] Chloride [Moles/Vol] 98 mmol/L Normal 97-105 [facility] Comment on above: Order Comment: Speci men Type: BLOOD SPECIMENOrdering Facility: [facility] Address: [address] [place] [address] Performed By: #### 2 4321-2 ####[facility]ORATORYCLIA [id number] [place] [address] [place] CO2 [Moles/Vol] 28 mmol/L Normal 22-30 [facility] Comment on above: Order Comment: Speci men Type: BLOOD SPECIMENOrdering Facility: [facility] Address: [address] [place] [address] Performed By: #### 2 4321-2 ####[facility]ORATORYCLIA [id number] [place] [address] [place] Creatinine [Mass/Vol] 0.56 mg/dL Low 0.73-1.22 [facility] Comment on above: Order Comment: Speci men Type: BLOOD SPECIMENOrdering Facility: [facility] Address: [address] [address] Performed By: #### 2 4321-2 ####[facility]ITALCLIA [id number] [address] [place] ESTIMATED GLOMERULAR FILTRATION RATE 107 mL/min/1.73m??? Normal >=60 [facility] Comment on above: Order Comment: Shira feldman Type: BLOOD SPECIMENOrdering Facility: [facility] Address: [address] [address] Result Comment: Luzmaria mated Glomerular Filtration Rate [...] Performed By: #### 2 4321-2 ####[facility] [id number] [place] [address] [place] Glucose [Mass/Vol] 113 mg/dL High 74-99 [facility] Comment on above: Order Comment: Shira feldman Type: BLOOD SPECIMENOrdering Facility: [facility] Address: [address] [address] Result Comment: The [place] [employer] (ADA) provides guidance for cutoff [...] Standards of Medical Care in Diabetes 2016, [place] [employer]. Diabetes Care. 2016.39(Suppl 1). Performed By: #### 2 4321-2 ####[facility] LABORATORYCLIA [id number] [place] [id number] [place] Potassium [Moles/Vol] 3.5 mmol/L Low 3.7-5.1 [facility] Comment on above: Order Comment: Speci men Type: BLOOD SPECIMENOrdering Facility: [facility] Address: [address] [place] [address] Performed By: #### 2 4321-2 ####[facility]ORATORYCLIA [id number] [address] STATES OF [facility] Sodium [Moles/Vol] 137 mmol/L Normal 136-144 [facility] Comment on above: Order Comment: Speci men Type: BLOOD SPECIMENOrdering Facility: [facility] Address: [address] [place] [address] Performed By: #### 2 4321-2 ####[facility]ORATORYCLIA [id number] [address] STATES OF [facility] Urea nitrogen [Mass/Vol] 10 mg/dL Normal 9-24 [facility] Comment on above: Order Comment: Speci men Type: BLOOD SPECIMENOrdering Facility: [facility] Address: [address] [place] [address] Performed By: #### 2 4321-2 ####[facility] LABORATORYCLIA [id number] [address] STATES OF [facility] CBC W Auto Differential pane l (Bld)on 08-18-2021 Basophils (Bld) [#/Vol] 10*3/uL Normal <0.11 [facility] Comment on above: Order Comment: Speci men Type: BLOOD SPECIMENOrdering Facility: [facility] Address: [address] [place] [address] Performed By: #### 5 7021-8 ####[facility] LABORATORYCLIA [id number] [address] STATES [facility] Basophils/100 WBC (Bld) 0.3 % Normal [facility] Comment on above: Order Comment: Speci men Type: BLOOD SPECIMENOrdering Facility: [facility] Address: [address] [place] [address] Performed By: #### 5 7021-8 ####[facility] LABORATORYCLIA [id number] [address] Differential cell count method Nom (Bld) Auto Normal [facility] Comment on above: Order Comment: Speci men Type: BLOOD SPECIMENOrdering Facility: [facility] Address: [address] [place] [address] Performed By: #### 5 7021-8 ####[facility] LABORATORYCLIA [id number] [address] Eosinophils (Bld) [#/Vol] 0.37 10*3/uL Normal <0.46 [facility] Comment on above: Order Comment: Speci men Type: BLOOD SPECIMENOrdering Facility: [facility] Address: [address] [place] [address] Performed By: #### 5 7021-8 ####[facility] LABORATORYCLIA [id number] [address] Eosinophils/100 WBC (Bld) 4.8 % Normal [facility] Comment on above: Order Comment: Speci men Type: BLOOD SPECIMENOrdering Facility: [facility] Address: [address] [place] [address] Performed By: #### 5 7021-8 ####[facility] LABORATORYCLIA [id number] [address] Erythrocyte distribution width (RBC) [Ratio] 17.5 % High 11.5-15.0 [facility] Comment on above: Order Comment: Speci men Type: BLOOD SPECIMENOrdering Facility: [facility] Address: [address] [place] [address] Performed By: #### 5 7021-8 ####[facility] LABORATORYCLIA [id number] [address] Hematocrit (Bld) [Volume fraction] 30.2 % Low 39.0-51.0 [facility] Comment on above: Order Comment: Speci men Type: BLOOD SPECIMENOrdering Facility: [facility] Address: [address] [place] [address] Performed By: #### 5 7021-8 ####[facility]ORATORYCLIA [id number] [address] Hemoglobin (Bld) [Mass/Vol] 9.5 g/dL Low 13.0-17.0 [facility] Comment on above: Order Comment: Speci men Type: BLOOD SPECIMENOrdering Facility: [facility] Address: [address] [place] [address] Performed By: #### 5 7021-8 ####[facility] LABORATORYCLIA [id number] [address] IMMATURE GRAN % 0.4 % Normal [facility] Comment on above: Order Comment: Speci men Type: BLOOD SPECIMENOrdering Facility: [facility] Address: [address] [place] [address] Performed By: #### 5 7021-8 ####[facility]ORATORYCLIA [id number] [address] IMMATURE GRAN ABS 0.03 k/uL Normal <0.10 [facility] Comment on above: Order Comment: Speci men Type: BLOOD SPECIMENOrdering Facility: [facility] Address: [address] [place] [address] Performed By: #### 5 7021-8 ####[facility] LABORATORYCLIA [id number] [address] [place] Lymphocytes (Bld) [#/Vol] 1.85 10*3/uL Normal 1.00-4.00 [facility] Comment on above: Order Comment: Speci men Type: BLOOD SPECIMENOrdering Facility: [facility] Address: [address] [place] [address] Performed By: #### 5 7021-8 ####[facility]ORATORYCLIA [id number] [address] Lymphocytes/100 WBC (Bld) 23.8 % Normal [facility] Comment on above: Order Comment: Speci men Type: BLOOD SPECIMENOrdering Facility: [facility] Address: [address] [place] [address] Performed By: #### 5 7021-8 ####[facility] LABORATORYCLIA [id number] [address] MCH (RBC) [Entitic mass] 29.5 pg Normal 26.0-34.0 [facility] Comment on above: Order Comment: Speci men Type: BLOOD SPECIMENOrdering Facility: [facility] Address: [address] [place] [address] Performed By: #### 5 7021-8 ####[facility]ORATORYCLIA [id number] [address] MCHC (RBC) [Mass/Vol] 31.5 g/dL Normal 30.5-36.0 [facility] Comment on above: Order Comment: Speci men Type: BLOOD SPECIMENOrdering Facility: [facility] Address: [address] [place] [address] Performed By: #### 5 7021-8 ####[facility]ORATORYCLIA [id number] [address] MCV (RBC) [Entitic vol] 93.8 fL Normal 80.0-100.0 [facility] Comment on above: Order Comment: Speci men Type: BLOOD SPECIMENOrdering Facility: [facility] Address: [address] [place] [address] Performed By: #### 5 7021-8 ####[facility] LABORATORYCLIA [id number] [address] Monocytes (Bld) [#/Vol] 0.49 10*3/uL Normal <0.87 [facility] Comment on above: Order Comment: Speci men Type: BLOOD SPECIMENOrdering Facility: [facility] Address: [address] [place] [address] Performed By: #### 5 7021-8 ####[facility]ORATORYCLIA [id number] [place] [address] [place] Monocytes/100 WBC (Bld) 6.3 % Normal [facility] Comment on above: Order Comment: Speci men Type: BLOOD SPECIMENOrdering Facility: [facility] Address: [address] [place] [address] Performed By: #### 5 7021-8 ####[facility]ORATORYCLIA [id number] [place] [address] [place] Neutrophils (Bld) [#/Vol] 5.00 10*3/uL Normal 1.45-7.50 [facility] Comment on above: Order Comment: Speci men Type: BLOOD SPECIMENOrdering Facility: [facility] Address: [address] [place] [address] Performed By: #### 5 7021-8 ####[facility] LABORATORYCLIA [id number] [address] [place] Neutrophils/100 WBC (Bld) 64.4 % Normal [facility] Comment on above: Order Comment: Speci men Type: BLOOD SPECIMENOrdering Facility: [facility] Address: [address] [place] [address] Performed By: #### 5 7021-8 ####[facility] LABORATORYCLIA [id number] [place] [address] [place] Nucleated RBC (Bld) [#/Vol] 10*3/uL Normal <0.01 [facility] Comment on above: Order Comment: Speci men Type: BLOOD SPECIMENOrdering Facility: [facility] Address: [address] [place] [address] Performed By: #### 5 7021-8 ####[facility]ORATORYCLIA [id number] [place] [address] [place] Nucleated RBC/100 WBC (Bld) [Ratio] 0.0 /100 WBC Normal [facility] Comment on above: Order Comment: Speci men Type: BLOOD SPECIMENOrdering Facility: [facility] Address: [address] [place] [address] Performed By: #### 5 7021-8 ####[facility] LABORATORYCLIA [id number] [address] [place] Platelet mean volume (Bld) [Entitic vol] 9.1 fL Normal 9.0-12.7 [facility] Comment on above: Order Comment: Speci men Type: BLOOD SPECIMENOrdering Facility: [facility] Address: [address] [place] [address] Performed By: #### 5 7021-8 ####[facility] LABORATORYCLIA [id number] [place] [address] [place] Platelets (Bld) [#/Vol] 391 10*3/uL Normal 150-400 [facility] Comment on above: Order Comment: Speci men Type: BLOOD SPECIMENOrdering Facility: [facility] Address: [address] [place] [address] Performed By: #### 5 7021-8 ####[facility] LABORATORYCLIA [id number] [place] [address] [place] RBC (Bld) [#/Vol] 3.22 10*6/uL Low 4.20-6.00 [facility] Comment on above: Order Comment: Speci men Type: BLOOD SPECIMENOrdering Facility: [facility] Address: [address] [place] [address] Performed By: #### 5 7021-8 ####[facility] LABORATORYCLIA [id number] [address] [place] WBC (Bld) [#/Vol] 7.76 10*3/uL Normal 3.70-11.00 [facility] Comment on above: Order Comment: Speci men Type: BLOOD SPECIMENOrdering Facility: [facility] Address: [address] [place] [address] Performed By: #### 5 7021-8 ####[facility] LABORATORYCLIA [id number] [address] OF [facility] CONSULT PROGon 08-18-2021 CONSULT PROG Normal [facility] CASE MANAGEMon 08-17-2021 CASE MANAGEM Normal [facility] CBC W Auto Differential pane l (Bld)on 08-17-2021 Basophils (Bld) [#/Vol] 0.04 10*3/uL Normal <0.11 [facility] Comment on above: Order Comment: Speci men Type: BLOOD SPECIMENOrdering Facility: [facility] Address: [address] [place] [address] Performed By: #### 5 7021-8 ####[facility] LABORATORYCLIA [id number] [address] [place] Basophils/100 WBC (Bld) 0.5 % Normal [facility] Comment on above: Order Comment: Speci men Type: BLOOD SPECIMENOrdering Facility: [facility] Address: [address] [place] [address] Performed By: #### 5 7021-8 ####[facility]ORATORYCLIA [id number] [address] [place] Differential cell count method Nom (Bld) Auto Normal [facility] Comment on above: Order Comment: Speci men Type: BLOOD SPECIMENOrdering Facility: [facility] Address: [address] [place] [address] Performed By: #### 5 7021-8 ####[facility]ORATORYCLIA [id number] [place] [address] [place] Eosinophils (Bld) [#/Vol] 0.31 10*3/uL Normal <0.46 [facility] Comment on above: Order Comment: Speci men Type: BLOOD SPECIMENOrdering Facility: [facility] Address: [address] [place] [address] Performed By: #### 5 7021-8 ####[facility]ORATORYCLIA [id number] [address] [place] Eosinophils/100 WBC (Bld) 3.7 % Normal [facility] Comment on above: Order Comment: Speci men Type: BLOOD SPECIMENOrdering Facility: [facility] Address: [address] [place] [address] Performed By: #### 5 7021-8 ####[facility] LABORATORYCLIA [id number] [address] Erythrocyte distribution width (RBC) [Ratio] 17.4 % High 11.5-15.0 [facility] Comment on above: Order Comment: Speci men Type: BLOOD SPECIMENOrdering Facility: [facility] Address: [address] [place] [address] Performed By: #### 5 7021-8 ####[facility]ORATORYCLIA [id number] [address] Hematocrit (Bld) [Volume fraction] 30.6 % Low 39.0-51.0 [facility] Comment on above: Order Comment: Speci men Type: BLOOD SPECIMENOrdering Facility: [facility] Address: [address] [place] [address] Performed By: #### 5 7021-8 ####[facility] LABORATORYCLIA [id number] [address] STATES OF [facility] Hemoglobin (Bld) [Mass/Vol] 9.6 g/dL Low 13.0-17.0 [facility] Comment on above: Order Comment: Speci men Type: BLOOD SPECIMENOrdering Facility: [facility] Address: [address] [place] [address] Performed By: #### 5 7021-8 ####[facility]ORATORYCLIA [id number] [address] IMMATURE GRAN % 0.2 % Normal [facility] Comment on above: Order Comment: Speci men Type: BLOOD SPECIMENOrdering Facility: [facility] Address: [address] [place] [address] Performed By: #### 5 7021-8 ####[facility]ORATORYCLIA [id number] [address] IMMATURE GRAN ABS <0.03 Normal <0.10 [facility] Comment on above: Order Comment: Speci men Type: BLOOD SPECIMENOrdering Facility: [facility] Address: [address] [place] [address] Performed By: #### 5 7021-8 ####[facility] LABORATORYCLIA [id number] [address] [place] Lymphocytes (Bld) [#/Vol] 1.66 10*3/uL Normal 1.00-4.00 [facility] Comment on above: Order Comment: Speci men Type: BLOOD SPECIMENOrdering Facility: [facility] Address: [address] [place] [address] Performed By: #### 5 7021-8 ####[facility]ORATORYCLIA [id number] [address] Lymphocytes/100 WBC (Bld) 19.9 % Normal [facility] Comment on above: Order Comment: Speci men Type: BLOOD SPECIMENOrdering Facility: [facility] Address: [address] [place] [address] Performed By: #### 5 7021-8 ####[facility] LABORATORYCLIA [id number] [address] [place] MCH (RBC) [Entitic mass] 28.9 pg Normal 26.0-34.0 [facility] Comment on above: Order Comment: Speci men Type: BLOOD SPECIMENOrdering Facility: [facility] Address: [address] [place] [address] Performed By: #### 5 7021-8 ####[facility] LABORATORYCLIA [id number] [address] [place] MCHC (RBC) [Mass/Vol] 31.4 g/dL Normal 30.5-36.0 [facility] Comment on above: Order Comment: Speci men Type: BLOOD SPECIMENOrdering Facility: [facility] Address: [address] [place] [address] Performed By: #### 5 7021-8 ####[facility] LABORATORYCLIA [id number] [place] [address] [place] MCV (RBC) [Entitic vol] 92.2 fL Normal 80.0-100.0 [facility] Comment on above: Order Comment: Speci men Type: BLOOD SPECIMENOrdering Facility: [facility] Address: [address] [place] [address] Performed By: #### 5 7021-8 ####[facility] LABORATORYCLIA [id number] [place] [address] [place] Monocytes (Bld) [#/Vol] 0.52 10*3/uL Normal <0.87 [facility] Comment on above: Order Comment: Speci men Type: BLOOD SPECIMENOrdering Facility: [facility] Address: [address] [place] [address] Performed By: #### 5 7021-8 ####[facility] LABORATORYCLIA [id number] [address] [place] Monocytes/100 WBC (Bld) 6.2 % Normal [facility] Comment on above: Order Comment: Speci men Type: BLOOD SPECIMENOrdering Facility: [facility] Address: [address] [place] [address] Performed By: #### 5 7021-8 ####[facility] LABORATORYCLIA [id number] [place] [address] [place] Neutrophils (Bld) [#/Vol] 5.78 10*3/uL Normal 1.45-7.50 [facility] Comment on above: Order Comment: Speci men Type: BLOOD SPECIMENOrdering Facility: [facility] Address: [address] [place] [address] Performed By: #### 5 7021-8 ####[facility]ORATORYCLIA [id number] [address] [place] Neutrophils/100 WBC (Bld) 69.5 % Normal [facility] Comment on above: Order Comment: Speci men Type: BLOOD SPECIMENOrdering Facility: [facility] Address: [address] [place], [place] [address] Performed By: #### 5 7021-8 ####[facility]ORATORYCLIA [id number] [address] Nucleated RBC (Bld) [#/Vol] 10*3/uL Normal <0.01 [facility] Comment on above: Order Comment: Speci men Type: BLOOD SPECIMENOrdering Facility: [facility] Address: [address] [place] [address] Performed By: #### 5 7021-8 ####[facility] LABORATORYCLIA [id number] [address] OF [facility] Nucleated RBC/100 WBC (Bld) [Ratio] 0.0 /100 WBC Normal [facility] Comment on above: Order Comment: Speci men Type: BLOOD SPECIMENOrdering Facility: [facility] Address: [address] [place] [address] Performed By: #### 5 7021-8 ####[facility]ORATORYCLIA [id number] [address] Platelet mean volume (Bld) [Entitic vol] 9.2 fL Normal 9.0-12.7 [facility] Comment on above: Order Comment: Speci men Type: BLOOD SPECIMENOrdering Facility: [facility] Address: [address] [place] [address] Performed By: #### 5 7021-8 ####[facility]ORATORYCLIA [id number] [address] OF [place] Platelets (Bld) [#/Vol] 379 10*3/uL Normal 150-400 [facility] Comment on above: Order Comment: Speci men Type: BLOOD SPECIMENOrdering Facility: [facility] Address: [address] [place] [address] Performed By: #### 5 7021-8 ####[facility]ORATORYCLIA [id number] [address] OF [place] RBC (Bld) [#/Vol] 3.32 10*6/uL Low 4.20-6.00 [facility] Comment on above: Order Comment: Speci men Type: BLOOD SPECIMENOrdering Facility: [facility] Address: [address] [place] [address] Performed By: #### 5 7021-8 ####[facility]ORATORYCLIA [id number] [place] [address] [place] WBC (Bld) [#/Vol] 8.33 10*3/uL Normal 3.70-11.00 [facility] Comment on above: Order Comment: Speci men Type: BLOOD SPECIMENOrdering Facility: [facility] Address: [address] [place] [address] Performed By: #### 5 7021-8 ####[facility] LABORATORYCLIA [id number] [address] [place] CONSULT PROGon 08-17-2021 CONSULT PROG Normal [facility] NUTRITIONon 08-17-2021 NUTRITION Normal [facility] Basic metabolic 2000 panelon 08-16-2021 Anion gap [Moles/Vol] 14 mmol/L Normal 9-18 [facility] Comment on above: Order Comment: Speci men Type: BLOOD SPECIMENOrdering Facility: [facility] Address: [address] [place] [address] Performed By: #### 2 4321-2, 94110-4 ####[facility]ORATORYCLIA [id number] [place] [address] [place] Calcium [Mass/Vol] 8.8 mg/dL Normal 8.5-10.2 [facility] Comment on above: Order Comment: Speci men Type: BLOOD SPECIMENOrdering Facility: [facility] Address: [address] [place] [address] Performed By: #### 2 4321-2, 58200-2 ####[facility]ORATORYCLIA [id number] [place] [address] [place] Chloride [Moles/Vol] 97 mmol/L Normal 97-105 [facility] Comment on above: Order Comment: Speci men Type: BLOOD SPECIMENOrdering Facility: [facility] Address: [address] [place] [address] Performed By: #### 2 432-2, ####[facility]ORATORYCLIA [id number] [address] [place] CO2 [Moles/Vol] 27 mmol/L Normal 22-30 [facility] Comment on above: Order Comment: Speci men Type: BLOOD SPECIMENOrdering Facility: [facility] Address: [address] [place] [address] Performed By: #### 2 4322, ####[facility]ORATORYCLIA [id number] [address] STATES OF [facility] Creatinine [Mass/Vol] 0.50 mg/dL Low 0.73-1.22 [facility] Comment on above: Order Comment: Speci men Type: BLOOD SPECIMENOrdering Facility: [facility] Address: [address] [place] [address] Performed By: #### 2 4320-06, ####[facility]ORATORYCLIA [id number] [address] ESTIMATED GLOMERULAR FILTRATION RATE 110 mL/min/1.73m??? Normal >=60 [facility] Comment on above: Order Comment: Speci men Type: BLOOD SPECIMENOrdering Facility: [facility] Address: [address] [place] [address] Result Comment: Luzmaria mated Glomerular Filtration Rate [...] Performed By: #### 2 4321-2, ####[facility]ORATORYCLIA [id number] [place] [id number] [place] Glucose [Mass/Vol] 101 mg/dL High 74-99 [facility] Comment on above: Order Comment: Speccara men Type: BLOOD SPECIMENOrdering Facility: [facility] Address: [address] [place] [address] Result Comment: The [place] [employer] (ADA) provides guidance for cutoff [...] Standards of Medical Care in Diabetes 2016, [place] [employer]. Diabetes Care. 2016.39(Suppl 1). Performed By: #### 2 4320-06, ####[facility] LABORATORYCLIA [id number] [place] [address] [place] Potassium [Moles/Vol] 3.6 mmol/L Low 3.7-5.1 [facility] Comment on above: Order Comment: Shira feldman Type: BLOOD SPECIMENOrdering Facility: [facility] Address: [address] [place] [address] Performed By: #### 2 ####[facility]ORATORYCLIA [id number] [place] [address] [place] Sodium [Moles/Vol] 138 mmol/L Normal 136-144 [facility] Comment on above: Order Comment: Shira feldman Type: BLOOD SPECIMENOrdering Facility: [facility] Address: [address] [place] [address] Performed By: #### 2 4320-06, ####[facility]ORATORYCLIA [id number] [place] [address] [place] Urea nitrogen [Mass/Vol] 11 mg/dL Normal 9-24 [facility] Comment on above: Order Comment: Speci men Type: BLOOD SPECIMENOrdering Facility: [facility] Address: [address] [place] [address] Performed By: #### 2 4321-2, 42353-7 ####[facility]ORATORYCLIA [id number] [address] [place] CASE MANAGEMon 08-16-2021 CASE MANAGEM Normal [facility] CBC W Auto Differential pane l (Bld)on 08-16-2021 Basophils (Bld) [#/Vol] 0.03 10*3/uL Normal <0.11 [facility] Comment on above: Order Comment: Speci men Type: BLOOD SPECIMENOrdering Facility: [facility] Address: [address] [place] [address] Performed By: #### 5 7021-8 ####[facility]ORATORYCLIA [id number] [address] [place] Basophils/100 WBC (Bld) 0.4 % Normal [facility] Comment on above: Order Comment: Speci men Type: BLOOD SPECIMENOrdering Facility: [facility] Address: [address] [place] [address] Performed By: #### 5 7021-8 ####[facility] LABORATORYCLIA [id number] [place] Differential cell count method Nom (Bld) Auto Normal [facility] Comment on above: Order Comment: Speci men Type: BLOOD SPECIMENOrdering Facility: [facility] Address: [address] [place] [address] Performed By: #### 5 7021-8 ####[facility] LABORATORYCLIA [id number] [place] [address] [place] Eosinophils (Bld) [#/Vol] 0.19 10*3/uL Normal <0.46 [facility] Comment on above: Order Comment: Speci men Type: BLOOD SPECIMENOrdering Facility: [facility] Address: [address] [place] [address] Performed By: #### 5 7021-8 ####[facility]ORATORYCLIA [id number] [address] [place] [facility] Eosinophils/100 WBC (Bld) 2.5 % Normal [facility] Comment on above: Order Comment: Speci men Type: BLOOD SPECIMENOrdering Facility: [facility] [facility] Address: [address] [place] [address] Performed By: #### 5 7021-8 ####[facility] LABORATORYCLIA [id number] [address] Erythrocyte distribution width (RBC) [Ratio] 17.1 % High 11.5-15.0 [facility] Comment on above: Order Comment: Speci men Type: BLOOD SPECIMENOrdering Facility: [facility] Address: [address] [place] [address] Performed By: #### 5 7021-8 ####[facility] LABORATORYCLIA [id number] [address] Hematocrit (Bld) [Volume fraction] 29.2 % Low 39.0-51.0 [facility] Comment on above: Order Comment: Speci men Type: BLOOD SPECIMENOrdering Facility: [facility] Address: [address] [place] [address] Performed By: #### 5 7021-8 ####[facility] LABORATORYCLIA [id number] [address] [place] Hemoglobin (Bld) [Mass/Vol] 9.0 g/dL Low 13.0-17.0 [facility] Comment on above: Order Comment: Speci men Type: BLOOD SPECIMENOrdering Facility: [facility] Address: [address] [place] [address] Performed By: #### 5 7021-8 ####[facility]ATORYCLIA [id number] [address] IMMATURE GRAN % 0.3 % Normal [facility] Comment on above: Order Comment: Speci men Type: BLOOD SPECIMENOrdering Facility: [facility] Address: [address] [place] [address] Performed By: #### 5 7021-8 ####[facility]ORATORYCLIA [id number] [address] IMMATURE GRAN ABS <0.03 Normal <0.10 [facility] Comment on above: Order Comment: Speci men Type: BLOOD SPECIMENOrdering Facility: [facility] Address: [address] [place] [address] Performed By: #### 5 7021-8 ####[facility] LABORATORYCLIA [id number] [address] Lymphocytes (Bld) [#/Vol] 1.41 10*3/uL Normal 1.00-4.00 [facility] Comment on above: Order Comment: Speci men Type: BLOOD SPECIMENOrdering Facility: [facility] Address: [address] [place] [address] Performed By: #### 5 7021-8 ####[facility]ORATORYCLIA [id number] [address] Lymphocytes/100 WBC (Bld) 18.4 % Normal [facility] Comment on above: Order Comment: Speci men Type: BLOOD SPECIMENOrdering Facility: [facility] Address: [address] [place] [address] Performed By: #### 5 7021-8 ####[facility]ATORYCLIA [id number] [address] MCH (RBC) [Entitic mass] 28.0 pg Normal 26.0-34.0 [facility] Comment on above: Order Comment: Speci men Type: BLOOD SPECIMENOrdering Facility: [facility] Address: [address] [place] [address] Performed By: #### 5 7021-8 ####[facility]ORATORYCLIA [id number] [address] MCHC (RBC) [Mass/Vol] 30.8 g/dL Normal 30.5-36.0 [facility] Comment on above: Order Comment: Speci men Type: BLOOD SPECIMENOrdering Facility: [facility] Address: [address] [place] [address] Performed By: #### 5 7021-8 ####[facility]ORATORYCLIA [id number] [address] [place] MCV (RBC) [Entitic vol] 91.0 fL Normal 80.0-100.0 [facility] Comment on above: Order Comment: Speci men Type: BLOOD SPECIMENOrdering Facility: [facility] Address: [address] [place] [address] Performed By: #### 5 7021-8 ####[facility]ORATORYCLIA [id number] [address] [place] Monocytes (Bld) [#/Vol] 0.47 10*3/uL Normal <0.87 [facility] Comment on above: Order Comment: Speci men Type: BLOOD SPECIMENOrdering Facility: [facility] Address: [address] [place] [address] Performed By: #### 5 7021-8 ####[facility]ORATORYCLIA [id number] [address] Monocytes/100 WBC (Bld) 6.1 % Normal [facility] Comment on above: Order Comment: Speci men Type: BLOOD SPECIMENOrdering Facility: [facility] Address: [address] [place] [address] Performed By: #### 5 7021-8 ####[facility]ORATORYCLIA [id number] [address] [place] Neutrophils (Bld) [#/Vol] 5.55 10*3/uL Normal 1.45-7.50 [facility] Comment on above: Order Comment: Speci men Type: BLOOD SPECIMENOrdering Facility: [facility] Address: [address] [place] [address] Performed By: #### 5 7021-8 ####[facility]ATORYCLIA [id number] [address] Neutrophils/100 WBC (Bld) 72.3 % Normal [facility] Comment on above: Order Comment: Speci men Type: BLOOD SPECIMENOrdering Facility: [facility] Address: [address] [place] [address] Performed By: #### 5 7021-8 ####[facility]ORATORYCLIA [id number] [address] [place] Nucleated RBC (Bld) [#/Vol] 10*3/uL Normal <0.01 [facility] Comment on above: Order Comment: Speci men Type: BLOOD SPECIMENOrdering Facility: [facility] Address: [address] [place] [address] Performed By: #### 5 7021-8 ####[facility]ORATORYCLIA [id number] [address] Nucleated RBC/100 WBC (Bld) [Ratio] 0.0 /100 WBC Normal [facility] Comment on above: Order Comment: Speci men Type: BLOOD SPECIMENOrdering Facility: [facility] Address: [address] [place] [address] Performed By: #### 5 7021-8 ####[facility]ORATORYCLIA [id number] [address] [place] Platelet mean volume (Bld) [Entitic vol] 9.3 fL Normal 9.0-12.7 [facility] Comment on above: Order Comment: Speci men Type: BLOOD SPECIMENOrdering Facility: [facility] Address: [address] [place] [address] Performed By: #### 5 7021-8 ####[facility]ORATORYCLIA [id number] [address] Platelets (Bld) [#/Vol] 319 10*3/uL Normal 150-400 [facility] Comment on above: Order Comment: Speci men Type: BLOOD SPECIMENOrdering Facility: [facility] Address: [address] [address] Performed By: #### 5 7021-8 ####[facility] LABORATORYCLIA [id number] [address] STATES OF [facility] RBC (Bld) [#/Vol] 3.21 10*6/uL Low 4.20-6.00 [facility] Comment on above: Order Comment: Speci men Type: BLOOD SPECIMENOrdering Facility: [facility] Address: [address] [place] [address] Performed By: #### 5 7021-8 ####[facility]ORATORYCLIA [id number] [address] OF [facility] WBC (Bld) [#/Vol] 7.67 10*3/uL Normal 3.70-11.00 [facility] Comment on above: Order Comment: Speci men Type: BLOOD SPECIMENOrdering Facility: [facility] Address: [address] [place] [address] Performed By: #### 5 7021-8 ####[facility]ORATORYCLIA [id number] [address] STATES [facility] Basophils (Bld) [#/Vol] 0.04 10*3/uL Normal <0.11 [facility] Comment on above: Order Comment: Speci men Type: BLOOD SPECIMENOrdering Facility: [facility] Address: [address] [place] [address] Performed By: #### 5 7021-8 ####[facility]ORATORYCLIA [id number] [address] Basophils/100 WBC (Bld) 0.5 % Normal [facility] Comment on above: Order Comment: Speci men Type: BLOOD SPECIMENOrdering Facility: [facility] Address: [address] [place] [address] Performed By: #### 5 7021-8 ####[facility]ORATORYCLIA [id number] [address] Differential cell count method Nom (Bld) Auto Normal [facility] Comment on above: Order Comment: Speci men Type: BLOOD SPECIMENOrdering Facility: [facility] Address: [address] [place] [address] Performed By: #### 5 7021-8 ####[facility]ORATORYCLIA [id number] [address] [place] Eosinophils (Bld) [#/Vol] 0.19 10*3/uL Normal <0.46 [facility] Comment on above: Order Comment: Speci men Type: BLOOD SPECIMENOrdering Facility: [facility] Address: [address] [place] [address] Performed By: #### 5 7021-8 ####[facility]ORATORYCLIA [id number] [address] [place] Eosinophils/100 WBC (Bld) 2.5 % Normal [facility] Comment on above: Order Comment: Speci men Type: BLOOD SPECIMENOrdering Facility: [facility] Address: [address] [place] [address] Performed By: #### 5 7021-8 ####[facility]ORATORYCLIA [id number] [address] [place] Erythrocyte distribution width (RBC) [Ratio] 17.2 % High 11.5-15.0 [facility] Comment on above: Order Comment: Speci men Type: BLOOD SPECIMENOrdering Facility: [facility] Address: [address] [place] [address] Performed By: #### 5 7021-8 ####[facility]ORATORYCLIA [id number] [address] [place] Hematocrit (Bld) [Volume fraction] 29.5 % Low 39.0-51.0 [facility] Comment on above: Order Comment: Speci men Type: BLOOD SPECIMENOrdering Facility: [facility] Address: [address] [place] [address] Performed By: #### 5 7021-8 ####[facility]ORATORYCLIA [id number] [address] OF [facility] Hemoglobin (Bld) [Mass/Vol] 9.2 g/dL Low 13.0-17.0 [facility] Comment on above: Order Comment: Speci men Type: BLOOD SPECIMENOrdering Facility: [facility] Address: [address] [place] [address] Performed By: #### 5 7021-8 ####[facility]ATORYCLIA [id number] [address] IMMATURE GRAN % 0.4 % Normal [facility] Comment on above: Order Comment: Speci men Type: BLOOD SPECIMENOrdering Facility: [facility] Address: [address] [place] [address] Performed By: #### 5 7021-8 ####[facility]ATORYCLIA [id number] [address] IMMATURE GRAN ABS 0.03 k/uL Normal <0.10 [facility] Comment on above: Order Comment: Speci men Type: BLOOD SPECIMENOrdering Facility: [facility] Address: [address] [place] [address] Performed By: #### 5 7021-8 ####[facility]ATORYCLIA [id number] [address] [place] Lymphocytes (Bld) [#/Vol] 1.50 10*3/uL Normal 1.00-4.00 [facility] Comment on above: Order Comment: Speci men Type: BLOOD SPECIMENOrdering Facility: [facility] Address: [address] [place] [address] Performed By: #### 5 7021-8 ####[facility]ORATORYCLIA [id number] [address] Lymphocytes/100 WBC (Bld) 19.7 % Normal [facility] Comment on above: Order Comment: Speci men Type: BLOOD SPECIMENOrdering Facility: [facility] Address: [address] [place] [address] Performed By: #### 5 7021-8 ####[facility]ORATORYCLIA [id number] [address] MCH (RBC) [Entitic mass] 28.3 pg Normal 26.0-34.0 [facility] Comment on above: Order Comment: Speci men Type: BLOOD SPECIMENOrdering Facility: [facility] Address: [address] [place] [address] Performed By: #### 5 7021-8 ####[facility]ORATORYCLIA [id number] [address] MCHC (RBC) [Mass/Vol] 31.2 g/dL Normal 30.5-36.0 [facility] Comment on above: Order Comment: Speci men Type: BLOOD SPECIMENOrdering Facility: [facility] Address: [address] [place] [address] Performed By: #### 5 7021-8 ####[facility]ORATORYCLIA [id number] [address] MCV (RBC) [Entitic vol] 90.8 fL Normal 80.0-100.0 [facility] Comment on above: Order Comment: Speci men Type: BLOOD SPECIMENOrdering Facility: [facility] Address: [address] [place] [address] Performed By: #### 5 7021-8 ####[facility]ORATORYCLIA [id number] [address] Monocytes (Bld) [#/Vol] 0.49 10*3/uL Normal <0.87 [facility] Comment on above: Order Comment: Speci men Type: BLOOD SPECIMENOrdering Facility: [facility] Address: [address] [place] [address] Performed By: #### 5 7021-8 ####[facility]ORATORYCLIA [id number] [address] Monocytes/100 WBC (Bld) 6.4 % Normal [facility] Comment on above: Order Comment: Speci men Type: BLOOD SPECIMENOrdering Facility: [facility] Address: [address] [address] Performed By: #### 5 7021-8 ####[facility]ATORYCLIA [id number] [address] [place] Neutrophils (Bld) [#/Vol] 5.38 10*3/uL Normal 1.45-7.50 [facility] Comment on above: Order Comment: Speci men Type: BLOOD SPECIMENOrdering Facility: [facility] Address: [address] [place] [address] Performed By: #### 5 7021-8 ####[facility]ATORYCLIA [id number] [address] Neutrophils/100 WBC (Bld) 70.5 % Normal [facility] Comment on above: Order Comment: Speci men Type: BLOOD SPECIMENOrdering Facility: [facility] Address: [address] [place] [address] Performed By: #### 5 7021-8 ####[facility]ORATORYCLIA [id number] [address] Nucleated RBC (Bld) [#/Vol] 10*3/uL Normal <0.01 [facility] Comment on above: Order Comment: Speci men Type: BLOOD SPECIMENOrdering Facility: [facility] Address: [address] [address] Performed By: #### 5 7021-8 ####[facility]ATORYCLIA [id number] [address] Nucleated RBC/100 WBC (Bld) [Ratio] 0.0 /100 WBC Normal [facility] Comment on above: Order Comment: Speci men Type: BLOOD SPECIMENOrdering Facility: [facility] Address: [address] [place] [address] Performed By: #### 5 7021-8 ####[facility] LABORATORYCLIA [id number] [place] [address] [place] Platelet mean volume (Bld) [Entitic vol] 9.0 fL Normal 9.0-12.7 [facility] Comment on above: Order Comment: Speci men Type: BLOOD SPECIMENOrdering Facility: [facility] Address: [address] [place] [address] Performed By: #### 5 7021-8 ####[facility] LABORATORYCLIA [id number] [place] [address] [place] Platelets (Bld) [#/Vol] 316 10*3/uL Normal 150-400 [facility] Comment on above: Order Comment: Speci men Type: BLOOD SPECIMENOrdering Facility: [facility] Address: [address] [place] [address] Performed By: #### 5 7021-8 ####[facility]ORATORYCLIA [id number] [place] [address] [place] RBC (Bld) [#/Vol] 3.25 10*6/uL Low 4.20-6.00 [facility] Comment on above: Order Comment: Speci men Type: BLOOD SPECIMENOrdering Facility: [facility] Address: [address] [place] [address] Performed By: #### 5 7021-8 ####[facility]ORATORYCLIA [id number] [address] [place] WBC (Bld) [#/Vol] 7.63 10*3/uL Normal 3.70-11.00 [facility] Comment on above: Order Comment: Speci men Type: BLOOD SPECIMENOrdering Facility: [facility] Address: [address] [place] [address] Performed By: #### 5 7021-8 ####[facility]ORATORYCLIA [id number] [address] [place] Basophils (Bld) [#/Vol] Normal <0.11 [facility] Comment on above: Order Comment: Speci men Type: BLOOD SPECIMENOrdering Facility: [facility] Address: [address] [place] [address] Result Comment: Carolina Owens RN informed lab after results autoverified that she rd on the wrong patient. Lab to credit. Nurse to redraw on correct patient.Corrected result: Previously reported as 0.04 k/uL on 08/16/2021 at 4:44 AM EDT. Performed By: #### 5 7021-8 ####[facility]ORATORYCLIA [id number] [address] STATES [facility] Basophils/100 WBC (Bld) Normal [facility] Comment on above: Order Comment: Speci men Type: BLOOD SPECIMENOrdering Facility: [facility] Address: [address] [place] [address] Result Comment: Tati ected result: Previously reported as 0.4 % on 08/16/2021 at 4:44 AM EDT. Performed By: #### 5 7021-8 ####[facility]ATORYCLIA [id number] [address] CBC W Differential panel, method unspecified (Bld) Normal [facility] Comment on above: Order Comment: Speci men Type: BLOOD SPECIMENOrdering Facility: [facility] Address: [address] [place] [address] Result Comment: Carolina Owens RN informed lab after results autoverified that she rd on the wrong patient. Lab to credit. Nurse to redraw on correct patient. Performed By: #### 5 7021-8 ####[facility]ATORYCLIA [id number] [address] Differential cell count method Nom (Bld) Normal [facility] Comment on above: Order Comment: Speci men Type: BLOOD SPECIMENOrdering Facility: [facility] Address: [address] [place] [address] Result Comment: Carolina Owens RN informed lab after results autoverified that she rd on the wrong patient. Lab to credit. Nurse to redraw on correct patient.Corrected result: Previously reported as Auto on 08/16/2021 at 4:44 AM EDT. Performed By: #### 5 7021-8 ####[facility]ATORYCLIA [id number] [address] [place] Eosinophils (Bld) [#/Vol] Normal <0.46 [facility] Comment on above: Order Comment: Speci men Type: BLOOD SPECIMENOrdering Facility: [facility] Address: [address] [place] [address] Result Comment: Carolina Owens RN informed lab after results autoverified that she rd on the wrong patient. Lab to credit. Nurse to redraw on correct patient.Corrected result: Previously reported as 0.07 k/uL on 08/16/2021 at 4:44 AM EDT. Performed By: #### 5 7021-8 ####[facility]ATORYCLIA [id number] [address] Eosinophils/100 WBC (Bld) Normal [facility] Comment on above: Order Comment: Speci [facility] Type: BLOOD SPECIMENOrdering Facility: [facility] Address: [address] [place] [address] Result Comment: Carolina Oewns RN informed lab after results autoverified that she rd on the wrong patient. Lab to credit. Nurse to redraw on correct patient.Corrected result: Previously reported as 0.7 % on 08/16/2021 at 4:44 AM EDT. Performed By: #### 5 7021-8 ####[facility]ORATORYCLIA [id number] [address] [place] Erythrocyte distribution width (RBC) [Ratio] Normal 11.5-15.0 [facility] Comment on above: Order Comment: Speci [facility] Type: BLOOD SPECIMENOrdering Facility: [facility] Address: [address] [place] [address] Result Comment: Carolina Owens RN informed lab after results autoverified that she rd on the wrong patient. Lab to credit. Nurse to redraw on correct patient.Corrected result: Previously reported as 14.2 % on 08/16/2021 at 4:44 AM EDT. Performed By: #### 5 7021-8 ####[facility]ORATORYCLIA [id number] [address] Hematocrit (Bld) [Volume fraction] Normal 39.0-51.0 [facility] Comment on above: Order Comment: Speci men Type: BLOOD SPECIMENOrdering Facility: [facility] Address: [address] [place] [address] Result Comment: Carolina Owens RN informed lab after results autoverified that she rd on the wrong patient. Lab to credit. Nurse to redraw on correct patient.Corrected result: Previously reported as 34.3 % on 08/16/2021 at 4:44 AM EDT. Performed By: #### 5 7021-8 ####[facility]ATORYCLIA [id number] [address] Hemoglobin (Bld) [Mass/Vol] Normal 13.0-17.0 [facility] Comment on above: Order Comment: Speci men Type: BLOOD SPECIMENOrdering Facility: [facility] Address: [address] [place] [address] Result Comment: Carolina Owens RN informed lab after results autoverified that she rd on the wrong patient. Lab to credit. Nurse to redraw on correct patient.Corrected result: Previously reported as 11.2 g/dL on 08/16/2021 at 4:44 AM EDT. Performed By: #### 5 7021-8 ####[facility]ORATORYCLIA [id number] [address] IMMATURE GRAN % Normal [facility] Comment on above: Order Comment: Speci men Type: BLOOD SPECIMENOrdering Facility: [facility] Address: [address] [place] [address] Result Comment: Carolina Owens RN informed lab after results autoverified that she rd on the wrong patient. Lab to credit. Nurse to redraw on correct patient.Corrected result: Previously reported as 0.8 % on 08/16/2021 at 4:44 AM EDT. Performed By: #### 5 7021-8 ####[facility]ORATORYCLIA [id number] [address] STATES OF [facility] IMMATURE GRAN ABS Normal <0.10 [facility] Comment on above: Order Comment: Speci men Type: BLOOD SPECIMENOrdering Facility: [facility] Address: [address] [place] [address] Result Comment: Tati ected result: Previously reported as 0.08 k/uL on 08/16/2021 at 4:44 AM EDT. Performed By: #### 5 7021-8 ####[facility]ATORYCLIA [id number] [address] Lymphocytes (Bld) [#/Vol] Normal 1.00-4.00 [facility] Comment on above: Order Comment: Speci men Type: BLOOD SPECIMENOrdering Facility: [facility] Address: [address] [place] [address] Result Comment: Carolina Owens RN informed lab after results autoverified that she rd on the wrong patient. Lab to credit. Nurse to redraw on correct patient.Corrected result: Previously reported as 1.17 k/uL on 08/16/2021 at 4:44 AM EDT. Performed By: #### 5 7021-8 ####[facility]ATORYCLIA [id number] [address] Lymphocytes/100 WBC (Bld) Normal [facility] Comment on above: Order Comment: Speci men Type: BLOOD SPECIMENOrdering Facility: [facility] Address: [address] [place] [address] Result Comment: Carolina Owens RN informed lab after results autoverified that she rd on the wrong patient. Lab to credit. Nurse to redraw on correct patient.Corrected result: Previously reported as 12.0 % on 08/16/2021 at 4:44 AM EDT. Performed By: #### 5 7021-8 ####[facility]ORATORYCLIA [id number] [address] [place] MCHC (RBC) [Mass/Vol] Normal 30.5-36.0 [facility] Comment on above: Order Comment: Speci men Type: BLOOD SPECIMENOrdering Facility: [facility] Address: [address] [place] [address] Result Comment: Carolina Owens RN informed lab after results autoverified that she rd on the wrong patient. Lab to credit. Nurse to redraw on correct patient.Corrected result: Previously reported as 32.7 g/dL on 08/16/2021 at 4:44 AM EDT. Performed By: #### 5 7021-8 ####[facility]ATORYCLIA [id number] [address] [place] MCV (RBC) [Entitic vol] Normal 80.0-100.0 [facility] Comment on above: Order Comment: Speci men Type: BLOOD SPECIMENOrdering Facility: [facility] Address: [address] [place] [address] Result Comment: Carolina Owens RN informed lab after results autoverified that she rd on the wrong patient. Lab to credit. Nurse to redraw on correct patient.Corrected result: Previously reported as 94.2 fL on 08/16/2021 at 4:44 AM EDT. Performed By: #### 5 7021-8 ####[facility]ORATORYCLIA [id number] [address] OF [facility] Monocytes (Bld) [#/Vol] Normal <0.87 [facility] Comment on above: Order Comment: Speci men Type: BLOOD SPECIMENOrdering Facility: [facility] Address: [address] [place] [address] Result Comment: Carolina Owens RN informed lab after results autoverified that she rd on the wrong patient. Lab to credit. Nurse to redraw on correct patient.Corrected result: Previously reported as 0.99 k/uL on 08/16/2021 at 4:44 AM EDT. Performed By: #### 5 7021-8 ####[facility]ORATORYCLIA [id number] [address] [place] Monocytes/100 WBC (Bld) Normal [facility] Comment on above: Order Comment: Speci men Type: BLOOD SPECIMENOrdering Facility: [facility] Address: [address] [place] [address] Result Comment: Carolina Owens RN informed lab after results autoverified that she rd on the wrong patient. Lab to credit. Nurse to redraw on correct patient.Corrected result: Previously reported as 10.2 % on 08/16/2021 at 4:44 AM EDT. Performed By: #### 5 7021-8 ####[facility]ORATORYCLIA [id number] [address] [place] Neutrophils (Bld) [#/Vol] Normal 1.45-7.50 [facility] Comment on above: Order Comment: Speci men Type: BLOOD SPECIMENOrdering Facility: [facility] Address: [address] [place] [address] Result Comment: Carolina Owens RN informed lab after results autoverified that she rd on the wrong patient. Lab to credit. Nurse to redraw on correct patient.Corrected result: Previously reported as 7.40 k/uL on 08/16/2021 at 4:44 AM EDT. Performed By: #### 5 7021-8 ####[facility]ORATORYCLIA [id number] [address] STATES OF [facility] Neutrophils/100 WBC (Bld) Normal [facility] Comment on above: Order Comment: Speci men Type: BLOOD SPECIMENOrdering Facility: [facility] Address: [address] [place] [address] Result Comment: Carolina Owens RN informed lab after results autoverified that she rd on the wrong patient. Lab to credit. Nurse to redraw on correct patient.Corrected result: Previously reported as 75.9 % on 08/16/2021 at 4:44 AM EDT. Performed By: #### 5 7021-8 ####[facility]ORATORYCLIA [id number] [place] [address] [place] Platelet mean volume (Bld) [Entitic vol] Normal 9.0-12.7 [facility] Comment on above: Order Comment: Speci men Type: BLOOD SPECIMENOrdering Facility: [facility] Address: [address] [place] [address] Result Comment: Carolina Owens RN informed lab after results autoverified that she rd on the wrong patient. Lab to credit. Nurse to redraw on correct patient.Corrected result: Previously reported as 9.1 fL on 08/16/2021 at 4:44 AM EDT. Performed By: #### 5 7021-8 ####[facility]ORATORYCLIA [id number] [place] [address] [place] Platelets (Bld) [#/Vol] Normal 150-400 [facility] Comment on above: Order Comment: Shira feldman Type: BLOOD SPECIMENOrdering Facility: [facility] Address: [address] [place] [address] Result Comment: Carolina Owens RN informed lab after results autoverified that she rd on the wrong patient. Lab to credit. Nurse to redraw on correct patient.Corrected result: Previously reported as 338 k/uL on 08/16/2021 at 4:44 AM EDT. Performed By: #### 5 7021-8 ####[facility]ORATORYCLIA [id number] [address] [place] RBC (Bld) [#/Vol] Normal 4.20-6.00 [facility] Comment on above: Order Comment: Shira feldman Type: BLOOD SPECIMENOrdering Facility: [facility] Address: [address] [place] [address] Result Comment: Carolina Owens RN informed lab after results autoverified that she rd on the wrong patient. Lab to credit. Nurse to redraw on correct patient.Corrected result: Previously reported as 3.64 m/uL on 08/16/2021 at 4:44 AM EDT. Performed By: #### 5 7021-8 ####[facility]ATORYCLIA [id number] [address] [place] WBC (Bld) [#/Vol] Normal 3.70-11.00 [facility] Comment on above: Order Comment: Speci men Type: BLOOD SPECIMENOrdering Facility: [facility] Address: [address] [place] [address] Result Comment: Carolina Owens RN informed lab after results autoverified that she rd on the wrong patient. Lab to credit. Nurse to redraw on correct patient.Corrected result: Previously reported as 9.75 k/uL on 08/16/2021 at 4:44 AM EDT. Performed By: #### 5 7021-8 ####[facility]ORATORYCLIA [id number] [address] CONSULT PROGon 08-16-2021 CONSULT PROG [facility] Magnesium SerPl-mCncon 08-16 Magnesium [Mass/Vol] 1.8 mg/dL Normal 1.7-2.3 [facility] Comment on above: Order Comment: Speci men Type: BLOOD SPECIMENOrdering Facility: [facility] Address: [address] [place] [address] Performed By: #### 2 4321-2, 88286-2 ####[facility]ORATORYCLIA [id number] [address] NURSING PROGon 08-16-2021 NURSING PROG Normal [facility] Basic metabolic 2000 panelon 08-15-2021 Anion gap [Moles/Vol] 13 mmol/L Normal 9-18 [facility] Comment on above: Order Comment: Speci men Type: BLOOD SPECIMENOrdering Facility: [facility] Address: [address] [place] [address] Performed By: #### 2 4321-2 ####[facility]ORATORYCLIA [id number] [address] STATES OF [facility] Calcium [Mass/Vol] 9.0 mg/dL Normal 8.5-10.2 [facility] Comment on above: Order Comment: Speci men Type: BLOOD SPECIMENOrdering Facility: [facility] Address: [address] [place] [address] Performed By: #### 2 4321-2 ####[facility]ORATORYCLIA [id number] [address] OF [facility] Chloride [Moles/Vol] 95 mmol/L Low 97-105 [facility] Comment on above: Order Comment: Speci men Type: BLOOD SPECIMENOrdering Facility: [facility] Address: [address] [place] [address] Performed By: #### 2 4321-2 ####[facility]ORATORYCLIA [id number] [address] CO2 [Moles/Vol] 28 mmol/L Normal 22-30 [facility] Comment on above: Order Comment: Speci men Type: BLOOD SPECIMENOrdering Facility: [facility] Address: [address] [place] [address] Performed By: #### 2 4321-2 ####[facility]ORATORYCLIA [id number] [address] Creatinine [Mass/Vol] 0.50 mg/dL Low 0.73-1.22 [facility] Comment on above: Order Comment: Speci men Type: BLOOD SPECIMENOrdering Facility: [facility] Address: [address] [place] [address] Performed By: #### 2 4321-2 ####[facility]ORATORYCLIA [id number] [address] ESTIMATED GLOMERULAR FILTRATION RATE 110 mL/min/1.73m??? Normal >=60 [facility] Comment on above: Order Comment: Speci men Type: BLOOD SPECIMENOrdering Facility: [facility] Address: [address] [place] [address] Result Comment: Luzmaria mated Glomerular Filtration Rate [...] By: #### 2 4321-2 ####[facility]ORATORYCLIA [id number] [place] [address] [place] Glucose [Mass/Vol] 106 mg/dL High 74-99 [facility] Comment on above: Order Comment: Speci men Type: BLOOD SPECIMENOrdering Facility: [facility] Address: [address] [place] [address] Result Comment: The [place] [employer] (ADA) provides guidance for cutoff [...] Standards of Medical Care in Diabetes 2016, [place] [employer]. Diabetes Care. 2016.39(Suppl 1). Performed By: #### 2 4321-2 ####[facility]ORATORYCLIA [id number] [place] [address] [place] Potassium [Moles/Vol] 3.3 mmol/L Low 3.7-5.1 [facility] Comment on above: Order Comment: Johni men Type: BLOOD SPECIMENOrdering Facility: [facility] Address: [address] [place] [address] Performed By: #### 2 4321-2 ####[facility]ATORYCLIA [id number] [place] [address] [place] Sodium [Moles/Vol] 136 mmol/L Normal 136-144 [facility] Comment on above: Order Comment: Speci men Type: BLOOD SPECIMENOrdering Facility: [facility] Address: [address] [place] [address] Performed By: #### 2 4321-2 ####[facility]ORATORYCLIA [id number] [place] [address] [place] Urea nitrogen [Mass/Vol] 11 mg/dL Normal 9-24 [facility] Comment on above: Order Comment: Speci men Type: BLOOD SPECIMENOrdering Facility: [facility] Address: [address] [place] [address] Performed By: #### 2 4321-2 ####[facility]ORATORYCLIA [id number] [address] [place] CASE MANAGEMon 08-15-2021 CASE MANAGEM Normal [facility] CBC W Auto Differential pane l (Bld)on 08-15-2021 Basophils (Bld) [#/Vol] 0.03 10*3/uL Normal <0.11 [facility] Comment on above: Order Comment: Speci men Type: BLOOD SPECIMENOrdering Facility: [facility] Address: [address] [place] [address] Performed By: #### 5 7021-8 ####[facility]ORATORYCLIA [id number] [address] [place] Basophils/100 WBC (Bld) 0.4 % Normal [facility] Comment on above: Order Comment: Speci men Type: BLOOD SPECIMENOrdering Facility: [facility] Address: [address] [place] [address] Performed By: #### 5 7021-8 ####[facility]ORATORYCLIA [id number] [address] [place] Differential cell count method Nom (Bld) Auto Normal [facility] Comment on above: Order Comment: Speci men Type: BLOOD SPECIMENOrdering Facility: [facility] Address: [address] [place] [address] Performed By: #### 5 7021-8 ####[facility]ORATORYCLIA [id number] [place] [address] [place] Eosinophils (Bld) [#/Vol] 0.20 10*3/uL Normal <0.46 [facility] Comment on above: Order Comment: Speci men Type: BLOOD SPECIMENOrdering Facility: [facility] Address: [address] [place] [address] Performed By: #### 5 7021-8 ####[facility]ATORYCLIA [id number] [address] Eosinophils/100 WBC (Bld) 2.5 % Normal [facility] Comment on above: Order Comment: Speci men Type: BLOOD SPECIMENOrdering Facility: [facility] Address: [address] [place] [address] Performed By: #### 5 7021-8 ####[facility]ORATORYCLIA [id number] [address] [place] Erythrocyte distribution width (RBC) [Ratio] 16.7 % High 11.5-15.0 [facility] Comment on above: Order Comment: Speci men Type: BLOOD SPECIMENOrdering Facility: [facility] Address: [address] [place] [address] Performed By: #### 5 7021-8 ####[facility]ORATORYCLIA [id number] [address] Hematocrit (Bld) [Volume fraction] 30.3 % Low 39.0-51.0 [facility] Comment on above: Order Comment: Speci men Type: BLOOD SPECIMENOrdering Facility: [facility] Address: [address] [place] [address] Performed By: #### 5 7021-8 ####[facility]ORATORYCLIA [id number] [address] [place] Hemoglobin (Bld) [Mass/Vol] 9.4 g/dL Low 13.0-17.0 [facility] Comment on above: Order Comment: Speci men Type: BLOOD SPECIMENOrdering Facility: [facility] Address: [address] [place] [address] Performed By: #### 5 7021-8 ####[facility]ORATORYCLIA [id number] [address] [place] IMMATURE GRAN % 0.4 % Normal [facility] Comment on above: Order Comment: Speci men Type: BLOOD SPECIMENOrdering Facility: [facility] Address: [address] [place] [address] Performed By: #### 5 7021-8 ####[facility]ORATORYCLIA [id number] [address] IMMATURE GRAN ABS 0.03 k/uL Normal <0.10 [facility] Comment on above: Order Comment: Speci men Type: BLOOD SPECIMENOrdering Facility: [facility] Address: [address] [place] [address] Performed By: #### 5 7021-8 ####[facility]ORATORYCLIA [id number] [address] Lymphocytes (Bld) [#/Vol] 1.50 10*3/uL Normal 1.00-4.00 [facility] Comment on above: Order Comment: Speci men Type: BLOOD SPECIMENOrdering Facility: [facility] Address: [address] [place] [address] Performed By: #### 5 7021-8 ####[facility]ORATORYCLIA [id number] [address] Lymphocytes/100 WBC (Bld) 18.5 % Normal [facility] Comment on above: Order Comment: Speci men Type: BLOOD SPECIMENOrdering Facility: [facility] Address: [address] [place] [address] Performed By: #### 5 7021-8 ####[facility]ORATORYCLIA [id number] [address] MCH (RBC) [Entitic mass] 29.0 pg Normal 26.0-34.0 [facility] Comment on above: Order Comment: Speci men Type: BLOOD SPECIMENOrdering Facility: [facility] Address: [address] [place] [address] Performed By: #### 5 7021-8 ####[facility] LABORATORYCLIA [id number] [place] [address] [place] MCHC (RBC) [Mass/Vol] 31.0 g/dL Normal 30.5-36.0 [facility] Comment on above: Order Comment: Speci men Type: BLOOD SPECIMENOrdering Facility: [facility] Address: [address] [place] [address] Performed By: #### 5 7021-8 ####[facility]ORATORYCLIA [id number] [place] [address] [place] MCV (RBC) [Entitic vol] 93.5 fL Normal 80.0-100.0 [facility] Comment on above: Order Comment: Speci men Type: BLOOD SPECIMENOrdering Facility: [facility] Address: [address] [place] [address] Performed By: #### 5 7021-8 ####[facility]ORATORYCLIA [id number] [address] [place] Monocytes (Bld) [#/Vol] 0.47 10*3/uL Normal <0.87 [facility] Comment on above: Order Comment: Speci men Type: BLOOD SPECIMENOrdering Facility: [facility] Address: [address] [place] [address] Performed By: #### 5 7021-8 ####[facility]ORATORYCLIA [id number] [address] STATES [facility] Monocytes/100 WBC (Bld) 5.8 % Normal [facility] Comment on above: Order Comment: Speci men Type: BLOOD SPECIMENOrdering Facility: [facility] Address: [address] [place] [address] Performed By: #### 5 7021-8 ####[facility]ORATORYCLIA [id number] [place] [address] [place] Neutrophils (Bld) [#/Vol] 5.87 10*3/uL Normal 1.45-7.50 [facility] Comment on above: Order Comment: Speci men Type: BLOOD SPECIMENOrdering Facility: [facility] Address: [address] [place] [address] Performed By: #### 5 7021-8 ####[facility]ATORYCLIA [id number] [address] Neutrophils/100 WBC (Bld) 72.4 % Normal [facility] Comment on above: Order Comment: Speci men Type: BLOOD SPECIMENOrdering Facility: [facility] Address: [address] [place] [address] Performed By: #### 5 7021-8 ####[facility]ORATORYCLIA [id number] [address] [place] Nucleated RBC (Bld) [#/Vol] 10*3/uL Normal <0.01 [facility] Comment on above: Order Comment: Speci men Type: BLOOD SPECIMENOrdering Facility: [facility] Address: [address] [place] [address] Performed By: #### 5 7021-8 ####[facility]ATORYCLIA [id number] [address] Nucleated RBC/100 WBC (Bld) [Ratio] 0.0 /100 WBC Normal [facility] Comment on above: Order Comment: Speci men Type: BLOOD SPECIMENOrdering Facility: [facility] Address: [address] [place] [address] Performed By: #### 5 7021-8 ####[facility]ATORYCLIA [id number] [address] [place] Platelet mean volume (Bld) [Entitic vol] 9.4 fL Normal 9.0-12.7 [facility] Comment on above: Order Comment: Speci men Type: BLOOD SPECIMENOrdering Facility: [facility] Address: [address] [place] [address] Performed By: #### 5 7021-8 ####[facility]ATORYCLIA [id number] [address] [place] Platelets (Bld) [#/Vol] 290 10*3/uL Normal 150-400 [facility] Comment on above: Order Comment: Speci men Type: BLOOD SPECIMENOrdering Facility: [facility] Address: [address] [place] [address] Performed By: #### 5 7021-8 ####[facility]ATORYCLIA [id number] [address] OF [facility] RBC (Bld) [#/Vol] 3.24 10*6/uL Low 4.20-6.00 [facility] Comment on above: Order Comment: Speci men Type: BLOOD SPECIMENOrdering Facility: [facility] Address: [address] [place] [address] Performed By: #### 5 7021-8 ####[facility]ATORYCLIA [id number] [address] STATES OF [facility] WBC (Bld) [#/Vol] 8.10 10*3/uL Normal 3.70-11.00 [facility] Comment on above: Order Comment: Speci men Type: BLOOD SPECIMENOrdering Facility: [facility] Address: [address] [place] [address] Performed By: #### 5 7021-8 ####[facility]ORATORYCLIA [id number] [address] OF [facility] THERAPY NTon 08-15-2021 THERAPY NT Normal [facility] THERAPY NT Normal [facility] THERAPY NT Normal [facility] Basic metabolic 2000 panelon 08-14-2021 Anion gap [Moles/Vol] 10 mmol/L Normal 9-18 [facility] Comment on above: Order Comment: Speci men Type: BLOOD SPECIMENOrdering Facility: [facility] Address: [address] [place] [address] Performed By: #### 2 4321-2 ####[facility]ATORYCLIA [id number] [address] Calcium [Mass/Vol] 8.8 mg/dL Normal 8.5-10.2 [facility] Comment on above: Order Comment: Speci men Type: BLOOD SPECIMENOrdering Facility: [facility] Address: [address] [place] [address] Performed By: #### 2 4321-2 ####[facility]ORATORYCLIA [id number] [place] [address] [place] Chloride [Moles/Vol] 92 mmol/L Low 97-105 [facility] Comment on above: Order Comment: Speci men Type: BLOOD SPECIMENOrdering Facility: [facility] Address: [address] [place] [address] Performed By: #### 2 4321-2 ####[facility]ATORYCLIA [id number] [place] [address] [place] CO2 [Moles/Vol] 29 mmol/L Normal 22-30 [facility] Comment on above: Order Comment: Speci men Type: BLOOD SPECIMENOrdering Facility: [facility] Address: [address] [place] [address] Performed By: #### 2 4321-2 ####[facility]ORATORYCLIA [id number] [address] STATES OF [facility] Creatinine [Mass/Vol] 0.49 mg/dL Low 0.73-1.22 [facility] Comment on above: Order Comment: Speci men Type: BLOOD SPECIMENOrdering Facility: [facility] Address: [address] [place] [address] Performed By: #### 2 4321-2 ####[facility]ORATORYCLIA [id number] [address] OF [facility] ESTIMATED GLOMERULAR FILTRATION RATE 111 mL/min/1.73m??? Normal >=60 [facility] Comment on above: Order Comment: Speci men Type: BLOOD SPECIMENOrdering Facility: [facility] Address: [address] [place] [address] Result Comment: Luzmaria mated Glomerular Filtration Rate [...] By: #### 2 4321-2 ####[facility]ORATORYCLIA [id number] [place] [address] [place] Glucose [Mass/Vol] 104 mg/dL High 74-99 [facility] Comment on above: Order Comment: Shira feldman Type: BLOOD SPECIMENOrdering Facility: [facility] Address: [address] [place] [address] Result Comment: The [place] [employer] (ADA) provides guidance for cutoff [...] Standards of Medical Care in Diabetes 2016, [place] [employer]. Diabetes Care. 2016.39(Suppl 1). Performed By: #### 2 4321-2 ####[facility]ORATORYCLIA [id number] [place] [address] [place] Potassium [Moles/Vol] 3.1 mmol/L Low 3.7-5.1 [facility] Comment on above: Order Comment: Shira feldman Type: BLOOD SPECIMENOrdering Facility: [facility] Address: [address] [address] Performed By: #### 2 4321-2 ####[facility]ORATORYCLIA [id number] [place] [address] [place] Sodium [Moles/Vol] 131 mmol/L Low 136-144 [facility] Comment on above: Order Comment: Shira feldman Type: BLOOD SPECIMENOrdering Facility: [facility] Address: [address] [address] Performed By: #### 2 4321-2 ####[facility]ORATORYCLIA [id number] [address] [place] Urea nitrogen [Mass/Vol] 13 mg/dL Normal 9-24 [facility] Comment on above: Order Comment: Speci men Type: BLOOD SPECIMENOrdering Facility: [facility] Address: [address] [place] [address] Performed By: #### 2 4321-2 ####[facility]ORATORYCLIA [id number] [address] [place] CBC W Auto Differential pane l (Bld)on 08-14-2021 Basophils (Bld) [#/Vol] 10*3/uL Normal <0.11 [facility] Comment on above: Order Comment: Speci men Type: BLOOD SPECIMENOrdering Facility: [facility] Address: [address] [place] [address] Performed By: #### 5 7021-8 ####[facility]ATORYCLIA [id number] [address] [place] Basophils/100 WBC (Bld) 0.2 % Normal [facility] Comment on above: Order Comment: Speci men Type: BLOOD SPECIMENOrdering Facility: [facility] Address: [address] [place] [address] Performed By: #### 5 7021-8 ####[facility]ORATORYCLIA [id number] [address] Differential cell count method Nom (Bld) Auto Normal [facility] Comment on above: Order Comment: Speci men Type: BLOOD SPECIMENOrdering Facility: [facility] Address: [address] [place] [address] Performed By: #### 5 7021-8 ####[facility]ORATORYCLIA [id number] [address] [place] Eosinophils (Bld) [#/Vol] 0.23 10*3/uL Normal <0.46 [facility] Comment on above: Order Comment: Speci men Type: BLOOD SPECIMENOrdering Facility: [facility] Address: [address] [place] [address] Performed By: #### 5 7021-8 ####[facility]ORATORYCLIA [id number] [address] Eosinophils/100 WBC (Bld) 2.7 % Normal [facility] Comment on above: Order Comment: Speci men Type: BLOOD SPECIMENOrdering Facility: [facility] Address: [address] [place] [address] Performed By: #### 5 7021-8 ####[facility] LABORATORYCLIA [id number] [address] Erythrocyte distribution width (RBC) [Ratio] 16.6 % High 11.5-15.0 [facility] Comment on above: Order Comment: Speci men Type: BLOOD SPECIMENOrdering Facility: [facility] Address: [address] [place] [address] Performed By: #### 5 7021-8 ####[facility]ORATORYCLIA [id number] [address] Hematocrit (Bld) [Volume fraction] 28.6 % Low 39.0-51.0 [facility] Comment on above: Order Comment: Speci men Type: BLOOD SPECIMENOrdering Facility: [facility] Address: [address] [place] [address] Performed By: #### 5 7021-8 ####[facility]ORATORYCLIA [id number] [address] Hemoglobin (Bld) [Mass/Vol] 9.0 g/dL Low 13.0-17.0 [facility] Comment on above: Order Comment: Speci men Type: BLOOD SPECIMENOrdering Facility: [facility] Address: [address] [place] [address] Performed By: #### 5 7021-8 ####[facility]ORATORYCLIA [id number] [address] [place] IMMATURE GRAN % 0.2 % Normal [facility] Comment on above: Order Comment: Speci men Type: BLOOD SPECIMENOrdering Facility: [facility] Address: [address] [place] [address] Performed By: #### 5 7021-8 ####[facility] LABORATORYCLIA [id number] [address] STATES [facility] IMMATURE GRAN ABS <0.03 Normal <0.10 [facility] Comment on above: Order Comment: Speci men Type: BLOOD SPECIMENOrdering Facility: [facility] Address: [address] [place] [address] Performed By: #### 5 7021-8 ####[facility]ORATORYCLIA [id number] [address] Lymphocytes (Bld) [#/Vol] 1.33 10*3/uL Normal 1.00-4.00 [facility] Comment on above: Order Comment: Speci men Type: BLOOD SPECIMENOrdering Facility: [facility] Address: [address] [place] [address] Performed By: #### 5 7021-8 ####[facility]ORATORYCLIA [id number] [address] Lymphocytes/100 WBC (Bld) 15.6 % Normal [facility] Comment on above: Order Comment: Speci men Type: BLOOD SPECIMENOrdering Facility: [facility] Address: [address] [place] [address] Performed By: #### 5 7021-8 ####[facility]ORATORYCLIA [id number] [address] STATES [facility] MCH (RBC) [Entitic mass] 29.0 pg Normal 26.0-34.0 [facility] Comment on above: Order Comment: Speci men Type: BLOOD SPECIMENOrdering Facility: [facility] Address: [address] [place] [address] Performed By: #### 5 7021-8 ####[facility]ORATORYCLIA [id number] [address] MCHC (RBC) [Mass/Vol] 31.5 g/dL Normal 30.5-36.0 [facility] Comment on above: Order Comment: Speci men Type: BLOOD SPECIMENOrdering Facility: [facility] Address: [address] [place] [address] Performed By: #### 5 7021-8 ####[facility]ORATORYCLIA [id number] [address] [place] MCV (RBC) [Entitic vol] 92.3 fL Normal 80.0-100.0 [facility] Comment on above: Order Comment: Speci men Type: BLOOD SPECIMENOrdering Facility: [facility] Address: [address] [place] [address] Performed By: #### 5 7021-8 ####[facility]ORATORYCLIA [id number] [address] [place] Monocytes (Bld) [#/Vol] 0.44 10*3/uL Normal <0.87 [facility] Comment on above: Order Comment: Speci men Type: BLOOD SPECIMENOrdering Facility: [facility] Address: [address] [place] [address] Performed By: #### 5 7021-8 ####[facility]ORATORYCLIA [id number] [address] Monocytes/100 WBC (Bld) 5.2 % Normal [facility] Comment on above: Order Comment: Speci men Type: BLOOD SPECIMENOrdering Facility: [facility] Address: [address] [place] [address] Performed By: #### 5 7021-8 ####[facility]ORATORYCLIA [id number] [address] [place] Neutrophils (Bld) [#/Vol] 6.46 10*3/uL Normal 1.45-7.50 [facility] Comment on above: Order Comment: Speci men Type: BLOOD SPECIMENOrdering Facility: [facility] Address: [address] [place] [address] Performed By: #### 5 7021-8 ####[facility]ORYCLIA [id number] [address] Neutrophils/100 WBC (Bld) 76.1 % Normal [facility] Comment on above: Order Comment: Speci men Type: BLOOD SPECIMENOrdering Facility: [facility] Address: [address] [place] [address] Performed By: #### 5 7021-8 ####[facility]ATORYCLIA [id number] [address] [place] Nucleated RBC (Bld) [#/Vol] 10*3/uL Normal <0.01 [facility] Comment on above: Order Comment: Speci men Type: BLOOD SPECIMENOrdering Facility: [facility] Address: [address] [place] [address] Performed By: #### 5 7021-8 ####[facility]ORATORYCLIA [id number] [address] Nucleated RBC/100 WBC (Bld) [Ratio] 0.0 /100 WBC Normal [facility] Comment on above: Order Comment: Speci men Type: BLOOD SPECIMENOrdering Facility: [facility] Address: [address] [place] [address] Performed By: #### 5 7021-8 ####[facility]ORATORYCLIA [id number] [address] [place] Platelet mean volume (Bld) [Entitic vol] 9.5 fL Normal 9.0-12.7 [facility] Comment on above: Order Comment: Speci men Type: BLOOD SPECIMENOrdering Facility: [facility] Address: [address] [place] [address] Performed By: #### 5 7021-8 ####[facility]ATORYCLIA [id number] [address] [place] Platelets (Bld) [#/Vol] 247 10*3/uL Normal 150-400 [facility] Comment on above: Order Comment: Speci men Type: BLOOD SPECIMENOrdering Facility: [facility] Address: [address] [place] [address] Performed By: #### 5 7021-8 ####[facility]ORATORYCLIA [id number] [address] [place] RBC (Bld) [#/Vol] 3.10 10*6/uL Low 4.20-6.00 [facility] Comment on above: Order Comment: Speci men Type: BLOOD SPECIMENOrdering Facility: [facility] Address: [address] [place] [address] Performed By: #### 5 7021-8 ####[facility]ORATORYCLIA [id number] [address] OF [facility] WBC (Bld) [#/Vol] 8.50 10*3/uL Normal 3.70-11.00 [facility] Comment on above: Order Comment: Speci men Type: BLOOD SPECIMENOrdering Facility: [facility] Address: [address] [place] [address] Performed By: #### 5 7021-8 ####[facility]ORATORYCLIA [id number] [address] [place] CONSULTon 08-14-2021 CONSULT Normal [facility] NURSING PROGon 08-14-2021 NURSING PROG Normal [facility] CBC W Auto Differential pane l (Bld)on 08-13-2021 Basophils (Bld) [#/Vol] 10*3/uL Normal <0.11 [facility] Comment on above: Order Comment: Speci men Type: BLOOD SPECIMENOrdering Facility: [facility] Address: [address] [place] [address] Performed By: #### 5 7021-8 ####[facility]ORATORYCLIA [id number] [address] STATES OF [facility] Basophils/100 WBC (Bld) 0.2 % Normal [facility] Comment on above: Order Comment: Speci men Type: BLOOD SPECIMENOrdering Facility: [facility] Address: [address] [address] Performed By: #### 5 7021-8 ####[facility]ORATORYCLIA [id number] [address] Differential cell count method Nom (Bld) Auto Normal [facility] Comment on above: Order Comment: Speci men Type: BLOOD SPECIMENOrdering Facility: [facility] Address: [address] [place] [address] Performed By: #### 5 7021-8 ####[facility]ORATORYCLIA [id number] [address] Eosinophils (Bld) [#/Vol] 0.31 10*3/uL Normal <0.46 [facility] Comment on above: Order Comment: Speci men Type: BLOOD SPECIMENOrdering Facility: [facility] Address: [address] [place] [address] Performed By: #### 5 7021-8 ####[facility]ORATORYCLIA [id number] [address] Eosinophils/100 WBC (Bld) 3.7 % Normal [facility] Comment on above: Order Comment: Speci men Type: BLOOD SPECIMENOrdering Facility: [facility] Address: [address] [place] [address] Performed By: #### 5 7021-8 ####[facility]ORATORYCLIA [id number] [address] Erythrocyte distribution width (RBC) [Ratio] 16.6 % High 11.5-15.0 [facility] Comment on above: Order Comment: Speci men Type: BLOOD SPECIMENOrdering Facility: [facility] Address: [address] [place] [address] Performed By: #### 5 7021-8 ####[facility]ORATORYCLIA [id number] [address] [place] Hematocrit (Bld) [Volume fraction] 27.5 % Low 39.0-51.0 [facility] Comment on above: Order Comment: Speci men Type: BLOOD SPECIMENOrdering Facility: [facility] Address: [address] [place] [address] Performed By: #### 5 7021-8 ####[facility]ORATORYCLIA [id number] [address] OF [facility] Hemoglobin (Bld) [Mass/Vol] 8.4 g/dL Low 13.0-17.0 [facility] Comment on above: Order Comment: Speci men Type: BLOOD SPECIMENOrdering Facility: [facility] Address: [address] [place] [address] Performed By: #### 5 7021-8 ####[facility]ORATORYCLIA [id number] [address] IMMATURE GRAN % 0.5 % Normal [facility] Comment on above: Order Comment: Speci men Type: BLOOD SPECIMENOrdering Facility: [facility] Address: [address] [place] [address] Performed By: #### 5 7021-8 ####[facility]ORATORYCLIA [id number] [address] IMMATURE GRAN ABS 0.04 k/uL Normal <0.10 [facility] Comment on above: Order Comment: Speci men Type: BLOOD SPECIMENOrdering Facility: [facility] Address: [address] [place] [address] Performed By: #### 5 7021-8 ####[facility]ORATORYCLIA [id number] [address] [place] Lymphocytes (Bld) [#/Vol] 1.55 10*3/uL Normal 1.00-4.00 [facility] Comment on above: Order Comment: Speci men Type: BLOOD SPECIMENOrdering Facility: [facility] Address: [address] [place] [address] Performed By: #### 5 7021-8 ####[facility]ORATORYCLIA [id number] [place] [address] Lymphocytes/100 WBC (Bld) 18.7 % Normal [facility] Comment on above: Order Comment: Speci men Type: BLOOD SPECIMENOrdering Facility: [facility] Address: [address] [place] [address] Performed By: #### 5 7021-8 ####[facility]ORATORYCLIA [id number] [address] MCH (RBC) [Entitic mass] 28.9 pg Normal 26.0-34.0 [facility] Comment on above: Order Comment: Speci men Type: BLOOD SPECIMENOrdering Facility: [facility] Address: [address] [place] [address] Performed By: #### 5 7021-8 ####[facility]ORATORYCLIA [id number] [address] OF [facility] MCHC (RBC) [Mass/Vol] 30.5 g/dL Normal 30.5-36.0 [facility] Comment on above: Order Comment: Speci men Type: BLOOD SPECIMENOrdering Facility: [facility] Address: [address] [place] [address] Performed By: #### 5 7021-8 ####[facility]ORATORYCLIA [id number] [address] MCV (RBC) [Entitic vol] 94.5 fL Normal 80.0-100.0 [facility] Comment on above: Order Comment: Speci men Type: BLOOD SPECIMENOrdering Facility: [facility] Address: [address] [place] [address] Performed By: #### 5 7021-8 ####[facility]ORATORYCLIA [id number] [address] Monocytes (Bld) [#/Vol] 0.47 10*3/uL Normal <0.87 [facility] Comment on above: Order Comment: Speci men Type: BLOOD SPECIMENOrdering Facility: [facility] Address: [address] [place] [address] Performed By: #### 5 7021-8 ####[facility]ATORYCLIA [id number] [address] [place] Monocytes/100 WBC (Bld) 5.7 % Normal [facility] Comment on above: Order Comment: Speci men Type: BLOOD SPECIMENOrdering Facility: [facility] Address: [address] [place] [address] Performed By: #### 5 7021-8 ####[facility]ORATORYCLIA [id number] [place] [address] [place] Neutrophils (Bld) [#/Vol] 5.92 10*3/uL Normal 1.45-7.50 [facility] Comment on above: Order Comment: Speci men Type: BLOOD SPECIMENOrdering Facility: [facility] Address: [address] [place] [address] Performed By: #### 5 7021-8 ####[facility]ORATORYCLIA [id number] [address] Neutrophils/100 WBC (Bld) 71.2 % Normal [facility] Comment on above: Order Comment: Speci men Type: BLOOD SPECIMENOrdering Facility: [facility] Address: [address] [place] [address] Performed By: #### 5 7021-8 ####[facility]ORATORYCLIA [id number] [address] [place] Nucleated RBC (Bld) [#/Vol] 10*3/uL Normal <0.01 [facility] Comment on above: Order Comment: Speci men Type: BLOOD SPECIMENOrdering Facility: [facility] Address: [address] [place] [address] Performed By: #### 5 7021-8 ####[facility]ORATORYCLIA [id number] [address] [place] Nucleated RBC/100 WBC (Bld) [Ratio] 0.0 /100 WBC Normal [facility] Comment on above: Order Comment: Speci men Type: BLOOD SPECIMENOrdering Facility: [facility] Address: [address] [place] [address] Performed By: #### 5 7021-8 ####[facility]ORATORYCLIA [id number] [address] Platelet mean volume (Bld) [Entitic vol] 9.9 fL Normal 9.0-12.7 [facility] Comment on above: Order Comment: Speci men Type: BLOOD SPECIMENOrdering Facility: [facility] Address: [address] [place] [address] Performed By: #### 5 7021-8 ####[facility]ORATORYCLIA [id number] [address] [place] Platelets (Bld) [#/Vol] 203 10*3/uL Normal 150-400 [facility] Comment on above: Order Comment: Speci men Type: BLOOD SPECIMENOrdering Facility: [facility] Address: [address] [place] [address] Performed By: #### 5 7021-8 ####[facility]ORATORYCLIA [id number] [address] [place] RBC (Bld) [#/Vol] 2.91 10*6/uL Low 4.20-6.00 [facility] Comment on above: Order Comment: Speci men Type: BLOOD SPECIMENOrdering Facility: [facility] Address: [address] [place], [place] [address] Performed By: #### 5 7021-8 ####[facility]ORATORYCLIA [id number] [address] [place] WBC (Bld) [#/Vol] 8.31 10*3/uL Normal 3.70-11.00 [facility] Comment on above: Order Comment: Speci men Type: BLOOD SPECIMENOrdering Facility: [facility] Address: [address] [place] [address] Performed By: #### 5 7021-8 ####[facility]ORATORYCLIA [id number] [place] [address] [place] aPTT PPPon 08-13-2021 aPTT Coag (PPP) [Time] 69.7 s High 23.0-32.4 [facility] Comment on above: Order Comment: Speci men Type: BLOOD SPECIMENOrdering Facility: [facility] Address: [address] [place] [address] Performed By: #### 1 4979-9 ####[facility]ORATORYCLIA [id number] [address] [place] aPTT Coag (PPP) [Time] 70.6 s High 23.0-32.4 [facility] Comment on above: Order Comment: Speci men Type: BLOOD SPECIMENOrdering Facility: [facility] Address: [address] [place] [address] Performed By: #### 1 4979-9 ####[facility]ORATORYCLIA [id number] [place] [address] [place] ALLIED HEALTHon 08-12-2021 ALLIED HEALTH Normal [facility] ALLIED HEALTH Normal [facility] Basic metabolic 2000 panelon 08-12-2021 Anion gap [Moles/Vol] 7 mmol/L Low 9-18 [facility] Comment on above: Order Comment: Speci men Type: BLOOD SPECIMENOrdering Facility: [facility] Address: [address] [place] [address] Performed By: #### 2 4321-2, , 2776-05 ####[facility]ORATORYCLIA [id number] [address] STATES OF [facility] Calcium [Mass/Vol] 8.8 mg/dL Normal 8.5-10.2 [facility] Comment on above: Order Comment: Speci men Type: BLOOD SPECIMENOrdering Facility: [facility] Address: [address] [place] [address] Performed By: #### 2 4321-2, , 2776-05 ####[facility]ORATORYCLIA [id number] [place], [place] [address] [place] [address] [place] Chloride [Moles/Vol] 96 mmol/L Low 97-105 [facility] Comment on above: Order Comment: Speci men Type: BLOOD SPECIMENOrdering Facility: [facility] Address: [address] [place] [address] Performed By: #### 2 4321-2, 80662-5, 2776- ####[facility]ATORYCLIA [id number] [address] STATES OF [facility] CO2 [Moles/Vol] 32 mmol/L High 22-30 [facility] Comment on above: Order Comment: Speci men Type: BLOOD SPECIMENOrdering Facility: [facility] Address: [address] [place] [address] Performed By: #### 2 4321-2, , 2776-05 ####[facility]ORATORYCLIA [id number] [address] OF [facility] Creatinine [Mass/Vol] 0.52 mg/dL Low 0.73-1.22 [facility] Comment on above: Order Comment: Speci men Type: BLOOD SPECIMENOrdering Facility: [facility] Address: [address] [place] [address] Performed By: #### 2 4321-2, , 2776-05 ####[facility]ORATORYCLIA [id number] [address] ESTIMATED GLOMERULAR FILTRATION RATE 109 mL/min/1.73m??? Normal >=60 [facility] Comment on above: Order Comment: Speci men Type: BLOOD SPECIMENOrdering Facility: [facility] Address: [address] [place] [address] Result Comment: Luzmaria mated Glomerular Filtration Rate [...] 2 4321-2, , 2776-05 ####[facility]ORATORYCLIA [id number] [place] [address] [place] Glucose [Mass/Vol] 119 mg/dL High 74-99 [facility] Comment on above: Order Comment: Speci men Type: BLOOD SPECIMENOrdering Facility: [facility] Address: [address] [place], [place] [phone] Result Comment: The [place] [employer] (ADA) provides guidance for cutoff [...] Standards of Medical Care in Diabetes 2016, [place] [employer]. Diabetes Care. 2016.39(Suppl 1). Performed By: #### 2 4321-2, , 2776-05 ####[facility]ORATORYCLIA [id number] [place] [address] [place] Potassium [Moles/Vol] 3.7 mmol/L Normal 3.7-5.1 [facility] Comment on above: Order Comment: Speci men Type: BLOOD SPECIMENOrdering Facility: [facility] Address: [address] [phone] Performed By: #### 2 4321-2, , 2776-05 ####[facility] LABORATORYIA [id number] [place] [address] [place] Sodium [Moles/Vol] 135 mmol/L Low 136-144 [facility] Comment on above: Order Comment: Shira francia Type: BLOOD SPECIMENOrdering Facility: [facility] Address: [address] [phone] Performed By: #### 2 4321-2, 55733-8, 277-1 ####[facility]ORATORYCLIA [id number] [address] STATES [facility] Urea nitrogen [Mass/Vol] 20 mg/dL Normal 9-24 [facility] Comment on above: Order Comment: Speci men Type: BLOOD SPECIMENOrdering Facility: [facility] Address: [address] [place] [address] Performed By: #### 2 4321-2, , 2776-05 ####[facility]ORATORYCLIA [id number] [address] OF [facility] CASE MANAGEMon 08-12-2021 CASE MANAGEM Normal [facility] CBC W Auto Differential pane l (Bld)on 08-12-2021 Basophils (Bld) [#/Vol] 0.04 10*3/uL Normal <0.11 [facility] Comment on above: Order Comment: Speci men Type: BLOOD SPECIMENOrdering Facility: [facility] Address: [address] [place] [address] Performed By: #### 5 7021-8 ####[facility]ORATORYCLIA [id number] [address] Basophils/100 WBC (Bld) 0.5 % Normal [facility] Comment on above: Order Comment: Speci men Type: BLOOD SPECIMENOrdering Facility: [facility] Address: [address] [place] [address] Performed By: #### 5 7021-8 ####[facility]ORATORYCLIA [id number] [address] [place] Differential cell count method Nom (Bld) Auto Normal [facility] Comment on above: Order Comment: Speci men Type: BLOOD SPECIMENOrdering Facility: [facility] Address: [address] [place] [address] Performed By: #### 5 7021-8 ####[facility]ORATORYCLIA [id number] [address] [place] Eosinophils (Bld) [#/Vol] 0.19 10*3/uL Normal <0.46 [facility] Comment on above: Order Comment: Speci men Type: BLOOD SPECIMENOrdering Facility: [facility] Address: [address] [place] [address] Performed By: #### 5 7021-8 ####[facility]ORATORYCLIA [id number] [address] [place] Eosinophils/100 WBC (Bld) 2.3 % Normal [facility] Comment on above: Order Comment: Speci men Type: BLOOD SPECIMENOrdering Facility: [facility] Address: [address] [place] [address] Performed By: #### 5 7021-8 ####[facility] LABORATORYCLIA [id number] [address] Erythrocyte distribution width (RBC) [Ratio] 17.1 % High 11.5-15.0 [facility] Comment on above: Order Comment: Speci men Type: BLOOD SPECIMENOrdering Facility: [facility] Address: [address] [place] [address] Performed By: #### 5 7021-8 ####[facility] LABORATORYCLIA [id number] [address] [place] Hematocrit (Bld) [Volume fraction] 25.3 % Low 39.0-51.0 [facility] Comment on above: Order Comment: Speci men Type: BLOOD SPECIMENOrdering Facility: [facility] Address: [address] [place] [address] Performed By: #### 5 7021-8 ####[facility] LABORATORYCLIA [id number] [address] [place] Hemoglobin (Bld) [Mass/Vol] 7.9 g/dL Low 13.0-17.0 [facility] Comment on above: Order Comment: Speci men Type: BLOOD SPECIMENOrdering Facility: [facility] Address: [address] [place] [address] Performed By: #### 5 7021-8 ####[facility] LABORATORYCLIA [id number] [address] IMMATURE GRAN % 0.5 % Normal [facility] Comment on above: Order Comment: Speci men Type: BLOOD SPECIMENOrdering Facility: [facility] Address: [address] [place] [address] Performed By: #### 5 7021-8 ####[facility] LABORATORYCLIA [id number] [address] IMMATURE GRAN ABS 0.04 k/uL Normal <0.10 [facility] Comment on above: Order Comment: Speci men Type: BLOOD SPECIMENOrdering Facility: [facility] Address: [address] [place] [address] Performed By: #### 5 7021-8 ####[facility] LABORATORYCLIA [id number] [address] Lymphocytes (Bld) [#/Vol] 1.69 10*3/uL Normal 1.00-4.00 [facility] Comment on above: Order Comment: Speci men Type: BLOOD SPECIMENOrdering Facility: [facility] Address: [address] [place] [address] Performed By: #### 5 7021-8 ####[facility] LABORATORYCLIA [id number] [address] Lymphocytes/100 WBC (Bld) 20.1 % Normal [facility] Comment on above: Order Comment: Speci men Type: BLOOD SPECIMENOrdering Facility: [facility] Address: [address] [place] [address] Performed By: #### 5 7021-8 ####[facility] LABORATORYCLIA [id number] [address] MCH (RBC) [Entitic mass] 28.5 pg Normal 26.0-34.0 [facility] Comment on above: Order Comment: Speci men Type: BLOOD SPECIMENOrdering Facility: [facility] Address: [address] [place] [address] Performed By: #### 5 7021-8 ####[facility] LABORATORYCLIA [id number] [address] STATES [facility] MCHC (RBC) [Mass/Vol] 31.2 g/dL Normal 30.5-36.0 [facility] Comment on above: Order Comment: Speci men Type: BLOOD SPECIMENOrdering Facility: [facility] Address: [address] [place] [address] Performed By: #### 5 7021-8 ####[facility] LABORATORYCLIA [id number] [address] OF [facility] MCV (RBC) [Entitic vol] 91.3 fL Normal 80.0-100.0 [facility] Comment on above: Order Comment: Speci men Type: BLOOD SPECIMENOrdering Facility: [facility] Address: [address] [place] [address] Performed By: #### 5 7021-8 ####[facility] LABORATORYCLIA [id number] [address] STATES OF [facility] Monocytes (Bld) [#/Vol] 0.53 10*3/uL Normal <0.87 [facility] Comment on above: Order Comment: Speci men Type: BLOOD SPECIMENOrdering Facility: [facility] Address: [address] [place] [address] Performed By: #### 5 7021-8 ####[facility] LABORATORYCLIA [id number] [address] Monocytes/100 WBC (Bld) 6.3 % Normal [facility] Comment on above: Order Comment: Speci men Type: BLOOD SPECIMENOrdering Facility: [facility] Address: [address] [place] [address] Performed By: #### 5 7021-8 ####[facility] LABORATORYCLIA [id number] [address] [place] Neutrophils (Bld) [#/Vol] 5.90 10*3/uL Normal 1.45-7.50 [facility] Comment on above: Order Comment: Speci men Type: BLOOD SPECIMENOrdering Facility: [facility] Address: [address] [place] [address] Performed By: #### 5 7021-8 ####[facility] LABORATORYCLIA [id number] [address] Neutrophils/100 WBC (Bld) 70.3 % Normal [facility] Comment on above: Order Comment: Speci men Type: BLOOD SPECIMENOrdering Facility: [facility] Address: [address] [place] [address] Performed By: #### 5 7021-8 ####[facility] LABORATORYCLIA [id number] [address] [place] Nucleated RBC (Bld) [#/Vol] 10*3/uL Normal <0.01 [facility] Comment on above: Order Comment: Speci men Type: BLOOD SPECIMENOrdering Facility: [facility] Address: [address] [place] [address] Performed By: #### 5 7021-8 ####[facility] LABORATORYCLIA [id number] [address] Nucleated RBC/100 WBC (Bld) [Ratio] 0.0 /100 WBC Normal [facility] Comment on above: Order Comment: Speci men Type: BLOOD SPECIMENOrdering Facility: [facility] Address: [address] [place] [address] Performed By: #### 5 7021-8 ####[facility] LABORATORYCLIA [id number] [address] [place] Platelet mean volume (Bld) [Entitic vol] 9.8 fL Normal 9.0-12.7 [facility] Comment on above: Order Comment: Speci men Type: BLOOD SPECIMENOrdering Facility: [facility] Address: [address] [place] [address] Performed By: #### 5 7021-8 ####[facility] LABORATORYCLIA [id number] [address] [place] Platelets (Bld) [#/Vol] 164 10*3/uL Normal 150-400 [facility] Comment on above: Order Comment: Speci men Type: BLOOD SPECIMENOrdering Facility: [facility] Address: [address] [place] [address] Performed By: #### 5 7021-8 ####[facility] LABORATORYCLIA [id number] [place] [address] [place] RBC (Bld) [#/Vol] 2.77 10*6/uL Low 4.20-6.00 [facility] Comment on above: Order Comment: Speci men Type: BLOOD SPECIMENOrdering Facility: [facility] Address: [address] [place] [address] Performed By: #### 5 7021-8 ####[facility] LABORATORYCLIA [id number] [address] OF [facility] WBC (Bld) [#/Vol] 8.39 10*3/uL Normal 3.70-11.00 [facility] Comment on above: Order Comment: Speci men Type: BLOOD SPECIMENOrdering Facility: [facility] Address: [address] [place] [address] Performed By: #### 5 7021-8 ####[facility] LABORATORYCLIA [id number] [address] [place] CT BRAIN WO IVCONon 08-13-19 CT BRAIN WO IVCON Normal [facility] CT BRAIN WO IVCON Normal [facility] Magnesium SerPl-mCncon 08-12 Magnesium [Mass/Vol] 2.0 mg/dL Normal 1.7-2.3 [facility] Comment on above: Order Comment: Speci men Type: BLOOD SPECIMENOrdering Facility: [facility] Address: [address] [place] [address] Performed By: #### 2 4321-2, 28317-6, 2777-1 ####[facility] LABORATORYCLIA [id number] [address] Phosphate SerPl-mCncon 08-12 Phosphate [Mass/Vol] 2.9 mg/dL Normal 2.7-4.8 [facility] Comment on above: Order Comment: Speci men Type: BLOOD SPECIMENOrdering Facility: [facility] Address: [address] [place] [address] Performed By: #### 2 4321-2, 73686-4, 2777-1 ####[facility] LABORATORYCLIA [id number] [address] THERAPY NTon 08-12-2021 THERAPY NT Normal [facility] THERAPY NT Normal [facility] aPTT PPPon 08-12-2021 aPTT Coag (PPP) [Time] 94.2 s High 23.0-32.4 [facility] Comment on above: Order Comment: Speci men Type: BLOOD SPECIMENOrdering Facility: [facility] Address: [address] [place] [address] Performed By: #### 1 4979-9 ####[facility] LABORATORYCLIA [id number] [address] aPTT Coag (PPP) [Time] 84.4 s High 23.0-32.4 [facility] Comment on above: Order Comment: Speci men Type: BLOOD SPECIMENOrdering Facility: [facility] Address: [address] [place] [address] Performed By: #### 1 4979-9 ####[facility] LABORATORYCLIA [id number] [address] aPTT Coag (PPP) [Time] 71.3 s High 23.0-32.4 [facility] Comment on above: Order Comment: Speci men Type: BLOOD SPECIMENOrdering Facility: [facility] Address: [address] [place] [address] Performed By: #### 1 4979-9 ####[facility] LABORATORYCLIA [id number] [place] [address] [place] ALLIED HEALTHon 08-11-2021 ALLIED HEALTH Normal [facility] CBC W Auto Differential pane l (Bld)on 08-11-2021 Basophils (Bld) [#/Vol] 10*3/uL Normal <0.11 [facility] Comment on above: Order Comment: Speci men Type: BLOOD SPECIMENOrdering Facility: [facility] Address: [address] [place] [address] Performed By: #### 5 7021-8 ####[facility] LABORATORYCLIA [id number] [address] [place] Basophils/100 WBC (Bld) 0.2 % Normal [facility] Comment on above: Order Comment: Speci men Type: BLOOD SPECIMENOrdering Facility: [facility] Address: [address] [place] [address] Performed By: #### 5 7021-8 ####[facility] LABORATORYCLIA [id number] [address] [place] Differential cell count method Nom (Bld) Auto Normal [facility] Comment on above: Order Comment: Speci men Type: BLOOD SPECIMENOrdering Facility: [facility] Address: [address] [place] [address] Performed By: #### 5 7021-8 ####[facility] LABORATORYCLIA [id number] [place] [address] [place] Eosinophils (Bld) [#/Vol] 0.16 10*3/uL Normal <0.46 [facility] Comment on above: Order Comment: Speci men Type: BLOOD SPECIMENOrdering Facility: [facility] Address: [address] [place] [address] Performed By: #### 5 7021-8 ####[facility] LABORATORYCLIA [id number] [address] [place] Eosinophils/100 WBC (Bld) 1.8 % Normal [facility] Comment on above: Order Comment: Speci men Type: BLOOD SPECIMENOrdering Facility: [facility] Address: [address] [place] [address] Performed By: #### 5 7021-8 ####[facility] LABORATORYCLIA [id number] [address] Erythrocyte distribution width (RBC) [Ratio] 17.3 % High 11.5-15.0 [facility] Comment on above: Order Comment: Speci men Type: BLOOD SPECIMENOrdering Facility: [facility] Address: [address] [place] [address] Performed By: #### 5 7021-8 ####[facility] LABORATORYCLIA [id number] [address] Hematocrit (Bld) [Volume fraction] 26.6 % Low 39.0-51.0 [facility] Comment on above: Order Comment: Speci men Type: BLOOD SPECIMENOrdering Facility: [facility] Address: [address] [place] [address] Performed By: #### 5 7021-8 ####[facility] LABORATORYCLIA [id number] [address] Hemoglobin (Bld) [Mass/Vol] 8.2 g/dL Low 13.0-17.0 [facility] Comment on above: Order Comment: Speci men Type: BLOOD SPECIMENOrdering Facility: [facility] Address: [address] [place] [address] Performed By: #### 5 7021-8 ####[facility] LABORATORYCLIA [id number] [address] IMMATURE GRAN % 0.6 % Normal [facility] Comment on above: Order Comment: Speci men Type: BLOOD SPECIMENOrdering Facility: [facility] Address: [address] [place] [address] Performed By: #### 5 7021-8 ####[facility] LABORATORYCLIA [id number] [address] IMMATURE GRAN ABS 0.05 k/uL Normal <0.10 [facility] Comment on above: Order Comment: Speci men Type: BLOOD SPECIMENOrdering Facility: [facility] Address: [address] [place] [address] Performed By: #### 5 7021-8 ####[facility] LABORATORYCLIA [id number] [address] Lymphocytes (Bld) [#/Vol] 1.40 10*3/uL Normal 1.00-4.00 [facility] Comment on above: Order Comment: Speci men Type: BLOOD SPECIMENOrdering Facility: [facility] Address: [address] [place] [address] Performed By: #### 5 7021-8 ####[facility] LABORATORYCLIA [id number] [address] Lymphocytes/100 WBC (Bld) 15.8 % Normal [facility] Comment on above: Order Comment: Speci men Type: BLOOD SPECIMENOrdering Facility: [facility] Address: [address] [place] [address] Performed By: #### 5 7021-8 ####[facility] LABORATORYCLIA [id number] [address] STATES OF [facility] MCH (RBC) [Entitic mass] 28.4 pg Normal 26.0-34.0 [facility] Comment on above: Order Comment: Speci men Type: BLOOD SPECIMENOrdering Facility: [facility] Address: [address] [place] [address] Performed By: #### 5 7021-8 ####[facility] LABORATORYCLIA [id number] [address] STATES [facility] MCHC (RBC) [Mass/Vol] 30.8 g/dL Normal 30.5-36.0 [facility] Comment on above: Order Comment: Speci men Type: BLOOD SPECIMENOrdering Facility: [facility] Address: [address] [place] [address] Performed By: #### 5 7021-8 ####[facility] LABORATORYCLIA [id number] [place] [address] [place] MCV (RBC) [Entitic vol] 92.0 fL Normal 80.0-100.0 [facility] Comment on above: Order Comment: Speci men Type: BLOOD SPECIMENOrdering Facility: [facility] Address: [address] [place] [address] Performed By: #### 5 7021-8 ####[facility] LABORATORYCLIA [id number] [place] [address] [place] Monocytes (Bld) [#/Vol] 0.61 10*3/uL Normal <0.87 [facility] Comment on above: Order Comment: Speci men Type: BLOOD SPECIMENOrdering Facility: [facility] Address: [address] [place] [address] Performed By: #### 5 7021-8 ####[facility] LABORATORYCLIA [id number] [address] STATES [facility] Monocytes/100 WBC (Bld) 6.9 % Normal [facility] Comment on above: Order Comment: Speci men Type: BLOOD SPECIMENOrdering Facility: [facility] Address: [address] [place] [address] Performed By: #### 5 7021-8 ####[facility] LABORATORYCLIA [id number] [place] [address] [place] Neutrophils (Bld) [#/Vol] 6.62 10*3/uL Normal 1.45-7.50 [facility] Comment on above: Order Comment: Speci men Type: BLOOD SPECIMENOrdering Facility: [facility] Address: [address] [place] [address] Performed By: #### 5 7021-8 ####[facility] LABORATORYCLIA [id number] [address] [place] Neutrophils/100 WBC (Bld) 74.7 % Normal [facility] Comment on above: Order Comment: Speci men Type: BLOOD SPECIMENOrdering Facility: [facility] Address: [address] [place] [address] Performed By: #### 5 7021-8 ####[facility] LABORATORYCLIA [id number] [address] Nucleated RBC (Bld) [#/Vol] 10*3/uL Normal <0.01 [facility] Comment on above: Order Comment: Speci men Type: BLOOD SPECIMENOrdering Facility: [facility] Address: [address] [place] [address] Performed By: #### 5 7021-8 ####[facility] LABORATORYCLIA [id number] [address] Nucleated RBC/100 WBC (Bld) [Ratio] 0.0 /100 WBC Normal [facility] Comment on above: Order Comment: Speci men Type: BLOOD SPECIMENOrdering Facility: [facility] Address: [address] [place] [address] Performed By: #### 5 7021-8 ####[facility] LABORATORYCLIA [id number] [address] [place] Platelet mean volume (Bld) [Entitic vol] 9.8 fL Normal 9.0-12.7 [facility] Comment on above: Order Comment: Speci men Type: BLOOD SPECIMENOrdering Facility: [facility] Address: [address] [place] [address] Performed By: #### 5 7021-8 ####[facility] LABORATORYCLIA [id number] [address] Platelets (Bld) [#/Vol] 157 10*3/uL Normal 150-400 [facility] Comment on above: Order Comment: Speci men Type: BLOOD SPECIMENOrdering Facility: [facility] Address: [address] [place] [address] Performed By: #### 5 7021-8 ####[facility] LABORATORYCLIA [id number] [address] [place] RBC (Bld) [#/Vol] 2.89 10*6/uL Low 4.20-6.00 [facility] Comment on above: Order Comment: Speci men Type: BLOOD SPECIMENOrdering Facility: [facility] Address: [address] [place] [address] Performed By: #### 5 7021-8 ####[facility] LABORATORYCLIA [id number] [place] [address] [place] WBC (Bld) [#/Vol] 8.86 10*3/uL Normal 3.70-11.00 [facility] Comment on above: Order Comment: Speci men Type: BLOOD SPECIMENOrdering Facility: [facility] Address: [address] [place] [address] Performed By: #### 5 7021-8 ####[facility] LABORATORYCLIA [id number] [address] OF [facility] CBC panel Auto (Bld)on 08-11 Erythrocyte distribution width (RBC) [Ratio] 17.2 % High 11.5-15.0 [facility] Comment on above: Order Comment: Speci men Type: BLOOD SPECIMENOrdering Facility: [facility] Address: [address] [place] [address] Performed By: #### 5 8410-2 ####[facility] LABORATORYCLIA [id number] [address] [place] Hematocrit (Bld) [Volume fraction] 27.0 % Low 39.0-51.0 [facility] Comment on above: Order Comment: Speci men Type: BLOOD SPECIMENOrdering Facility: [facility] Address: [address] [place] [address] Performed By: #### 5 8410-2 ####[facility] LABORATORYCLIA [id number] [address] Hemoglobin (Bld) [Mass/Vol] 8.3 g/dL Low 13.0-17.0 [facility] Comment on above: Order Comment: Speci men Type: BLOOD SPECIMENOrdering Facility: [facility] Address: [address] [place] [address] Performed By: #### 5 8410-2 ####[facility] LABORATORYCLIA [id number] [address] MCH (RBC) [Entitic mass] 28.7 pg Normal 26.0-34.0 [facility] Comment on above: Order Comment: Speci men Type: BLOOD SPECIMENOrdering Facility: [facility] Address: [address] [place] [address] Performed By: #### 5 8410-2 ####[facility] LABORATORYCLIA [id number] [address] MCHC (RBC) [Mass/Vol] 30.7 g/dL Normal 30.5-36.0 [facility] Comment on above: Order Comment: Speci men Type: BLOOD SPECIMENOrdering Facility: [facility] Address: [address] [place] [address] Performed By: #### 5 8410-2 ####[facility] LABORATORYCLIA [id number] [address] STATES OF [facility] MCV (RBC) [Entitic vol] 93.4 fL Normal 80.0-100.0 [facility] Comment on above: Order Comment: Speci men Type: BLOOD SPECIMENOrdering Facility: [facility] Address: [address] [place] [address] Performed By: #### 5 8410-2 ####[facility] LABORATORYCLIA [id number] [address] Nucleated RBC (Bld) [#/Vol] 10*3/uL Normal <0.01 [facility] Comment on above: Order Comment: Speci men Type: BLOOD SPECIMENOrdering Facility: [facility] Address: [address] [place] [address] Performed By: #### 5 8410-2 ####[facility] LABORATORYCLIA [id number] [address] Platelet mean volume (Bld) [Entitic vol] 9.8 fL Normal 9.0-12.7 [facility] Comment on above: Order Comment: Speci men Type: BLOOD SPECIMENOrdering Facility: [facility] Address: [address] [place] [address] Performed By: #### 5 8410-2 ####[facility] LABORATORYCLIA [id number] [address] Platelets (Bld) [#/Vol] 169 10*3/uL Normal 150-400 [facility] Comment on above: Order Comment: Speci men Type: BLOOD SPECIMENOrdering Facility: [facility] Address: [address] [place] [address] Performed By: #### 5 8410-2 ####[facility] LABORATORYCLIA [id number] [address] STATES OF [facility] RBC (Bld) [#/Vol] 2.89 10*6/uL Low 4.20-6.00 [facility] Comment on above: Order Comment: Speci men Type: BLOOD SPECIMENOrdering Facility: [facility] Address: [address] [place] [address] Performed By: #### 5 8410-2 ####[facility] LABORATORYCLIA [id number] [address] WBC (Bld) [#/Vol] 9.03 10*3/uL Normal 3.70-11.00 [facility] Comment on above: Order Comment: Speci men Type: BLOOD SPECIMENOrdering Facility: [facility] Address: [address] [place] [address] Performed By: #### 5 8410-2 ####[facility] LABORATORYCLIA [id number] [address] BRAIN WO IVCONon 08-12-19 CT BRAIN WO IVCON Normal [facility] PT panel Coag (PPP)on 2021 INR Coag (PPP) [Relative time] 1.0 {INR} Normal 0.9-1.3 [facility] Comment on above: Order Comment: Shira feldman Type: BLOOD SPECIMENOrdering Facility: [facility] Address: [address] [place] [id number] Result Comment: Yris min K Antagonist (VKA) Therapeutic Range: INR 2 to 3 (Target INR of 2.5)Note: For patients treated with VKA drugs, such as warfarin, the [employer] 2012 Guideline recommends [...] al. Chest 2012, 141:7S-47SNishimura RA, et al. [facility] 2017, 70: 252-289 Performed By: #### 1 4979-9, 90867-4 ####[facility] LABORATORYCLIA [id number] [place] [address] [place] PT Coag (PPP) [Time] 11.4 s Normal 9.7-13.0 [facility] Comment on above: Order Comment: Shira feldman Type: BLOOD SPECIMENOrdering Facility: [facility] Address: [address] [id number] Performed By: #### 1 4979-9, 43028-4 ####[facility] LABORATORYCLIA [id number] [place] [address] [place] THERAPY NTon 08-11-2021 THERAPY NT Normal [facility] US DVT LOWER BILon 2 US DVT LOWER RAINER Normal [facility] US DVT UPPER BILon 2 US DVT UPPER RAINER Normal [facility] aPTT PPPon 08-11-2021 aPTT Coag (PPP) [Time] 26.9 s Normal 23.0-32.4 [facility] Comment on above: Order Comment: Speci men Type: BLOOD SPECIMENOrdering Facility: [facility] Address: [address] [place] [address] Performed By: #### 1 4979-9, 99801-4 ####[facility] LABORATORYCLIA [id number] [place] [address] [place] Basic metabolic 2000 panelon 08-10-2021 Anion gap [Moles/Vol] 11 mmol/L Normal 9-18 [facility] Comment on above: Order Comment: Speci men Type: BLOOD SPECIMENOrdering Facility: [facility] Address: [address] [place] [address] Performed By: #### 2 4321-2 ####[facility] LABORATORYCLIA [id number] [place] [address] [place] Calcium [Mass/Vol] 8.7 mg/dL Normal 8.5-10.2 [facility] Comment on above: Order Comment: Speci men Type: BLOOD SPECIMENOrdering Facility: [facility] Address: [address] [place] [address] Performed By: #### 2 4321-2 ####[facility] LABORATORYCLIA [id number] [address] [place] Chloride [Moles/Vol] 98 mmol/L Normal 97-105 [facility] Comment on above: Order Comment: Speci men Type: BLOOD SPECIMENOrdering Facility: [facility] Address: [address] [place] [address] Performed By: #### 2 4321-2 ####[facility] LABORATORYCLIA [id number] [place] [address] [place] CO2 [Moles/Vol] 28 mmol/L Normal 22-30 [facility] Comment on above: Order Comment: Speci men Type: BLOOD SPECIMENOrdering Facility: [facility] Address: [address] [place] [address] Performed By: #### 2 4321-2 ####[facility] LABORATORYCLIA [id number] [address] STATES OF [facility] Creatinine [Mass/Vol] 0.59 mg/dL Low 0.73-1.22 [facility] Comment on above: Order Comment: Johncara feldman Type: BLOOD SPECIMENOrdering Facility: [facility] Address: [address] [place] [address] Performed By: #### 2 4321-2 ####[facility] LABORATORYCLIA [id number] [address] ESTIMATED GLOMERULAR FILTRATION RATE 105 mL/min/1.73m??? Normal >=60 [facility] Comment on above: Order Comment: Shira feldman Type: BLOOD SPECIMENOrdering Facility: [facility] Address: [address] [place] [address] Result Comment: Luzmaria mated Glomerular Filtration Rate [...] Performed By: #### 2 4321-2 ####[facility] [id number] [address] STATES OF [facility] Glucose [Mass/Vol] 118 mg/dL High 74-99 [facility] Comment on above: Order Comment: Shira francia Type: BLOOD SPECIMENOrdering Facility: [facility] Address: [address] [place] [address] Result Comment: The [place] [employer] (ADA) provides guidance for cutoff [...] Standards of Medical Care in Diabetes 2016, [place] [employer]. Diabetes Care. 2016.39(Suppl 1). Performed By: #### 2 4321-2 ####[facility]ORATORYCLIA [id number] [address] [place] Potassium [Moles/Vol] 3.7 mmol/L Normal 3.7-5.1 [facility] Comment on above: Order Comment: Speci men Type: BLOOD SPECIMENOrdering Facility: [facility] Address: [address] [place] [address] Performed By: #### 2 4321-2 ####[facility]ORATORYCLIA [id number] [address] STATES OF [facility] Sodium [Moles/Vol] 137 mmol/L Normal 136-144 [facility] Comment on above: Order Comment: Speci men Type: BLOOD SPECIMENOrdering Facility: [facility] Address: [address] [place] [address] Performed By: #### 2 4321-2 ####[facility]ORATORYCLIA [id number] [address] STATES [facility] Urea nitrogen [Mass/Vol] 23 mg/dL Normal 9-24 [facility] Comment on above: Order Comment: Speci men Type: BLOOD SPECIMENOrdering Facility: [facility] Address: [address] [place] [address] Performed By: #### 2 4321-2 ####[facility]ORATORYCLIA [id number] [address] [place] Anion gap [Moles/Vol] 17 mmol/L Normal 9-18 [facility] Comment on above: Order Comment: Speci men Type: BLOOD SPECIMENOrdering Facility: [facility] Address: [address] [place] [address] Performed By: #### 1 9123-9, 2777-1, 50118-4 ####[facility]ORATORYCLIA [id number] [address] STATES OF [facility] Calcium [Mass/Vol] 7.7 mg/dL Low 8.5-10.2 [facility] Comment on above: Order Comment: Speci men Type: BLOOD SPECIMENOrdering Facility: [facility] Address: [address] [place] [address] Performed By: #### 1 9123-9, 2777-1, 94863-9 ####[facility]ORATORYCLIA [id number] [place] [address] [place] Chloride [Moles/Vol] 86 mmol/L Low 97-105 [facility] Comment on above: Order Comment: Speci men Type: BLOOD SPECIMENOrdering Facility: [facility] Address: [address] [place] [address] Performed By: #### 1 9123-9, 2776-05, 42763-1 ####[facility]ORATORYCLIA [id number] [address] STATES OF [facility] CO2 [Moles/Vol] 24 mmol/L Normal 22-30 [facility] Comment on above: Order Comment: Speci men Type: BLOOD SPECIMENOrdering Facility: [facility] Address: [address] [place] [address] Performed By: #### 1 9123-9, 2776-05, 95482-9 ####[facility]ORATORYCLIA [id number] [address] STATES OF [facility] Creatinine [Mass/Vol] 0.53 mg/dL Low 0.73-1.22 [facility] Comment on above: Order Comment: Speci men Type: BLOOD SPECIMENOrdering Facility: [facility] Address: [address] [place] [address] Performed By: #### 1 9123-9, 27711-04, 95057-4 ####[facility] LABORATORYCLIA [id number] [address] OF [facility] ESTIMATED GLOMERULAR FILTRATION RATE 108 mL/min/1.73m??? Normal >=60 [facility] Comment on above: Order Comment: Speci men Type: BLOOD SPECIMENOrdering Facility: [facility] Address: [address] [phone] Result Comment: Luzmaria mated Glomerular Filtration Rate [...] GFR. Performed By: #### 1 9123-9, 2777-1, 92098-8 ####[facility]ITALCLIA [id number] [place] [address] [place] Glucose [Mass/Vol] 455 mg/dL High 74-99 [facility] Comment on above: Order Comment: Shira feldman Type: BLOOD SPECIMENOrdering Facility: [facility] Address: [address] [place] [address] Result Comment: The [place] Diabetes Association (ADA) provides guidance for cutoff [...] Standards of Medical Care in Diabetes 2016, [place] [employer]. Diabetes Care. 2016.39(Suppl 1). Performed By: #### 1 9123-9, 2777-1, 63991-2 ####[facility]ORATORYCLIA [id number] [place] [address] [place] Potassium [Moles/Vol] 3.4 mmol/L Low 3.7-5.1 [facility] Comment on above: Order Comment: Shira [facility] Type: BLOOD SPECIMENOrdering Facility: [facility] Address: [address] [phone] Performed By: #### 1 9123-9, 2777-, 43019-3 ####[facility]ORATORYCLIA [id number] [address] [place] Sodium [Moles/Vol] 127 mmol/L Low 136-144 [facility] Comment on above: Order Comment: Speci men Type: BLOOD SPECIMENOrdering Facility: [facility] Address: [address] [place] [address] Performed By: #### 1 9123-9, 2777, 04649-5 ####[facility]ORATORYCLIA [id number] [address] [place] Urea nitrogen [Mass/Vol] 21 mg/dL Normal 9-24 [facility] Comment on above: Order Comment: Speci men Type: BLOOD SPECIMENOrdering Facility: [facility] Address: [address] [place] [address] Performed By: #### 1 9123-9, 2777, ####[facility]ORATORYCLIA [id number] [address] [place] CASE MANAGEMon 08-10-2021 CASE MANAGEM Normal [facility] CBC W Auto Differential pane l (Bld)on 08-10-2021 Basophils (Bld) [#/Vol] 0.04 10*3/uL Normal <0.11 [facility] Comment on above: Order Comment: Speci men Type: BLOOD SPECIMENOrdering Facility: [facility] Address: [address] [place] [address] Performed By: #### 5 7021-8 ####[facility]ORATORYCLIA [id number] [address] STATES [facility] Basophils/100 WBC (Bld) 0.4 % Normal [facility] Comment on above: Order Comment: Speci men Type: BLOOD SPECIMENOrdering Facility: [facility] Address: [address] [place] [address] Performed By: #### 5 7021-8 ####[facility]ORATORYCLIA [id number] [address] Differential cell count method Nom (Bld) Auto Normal [facility] Comment on above: Order Comment: Speci men Type: BLOOD SPECIMENOrdering Facility: [facility] Address: [address] [place] [address] Performed By: #### 5 7021-8 ####[facility]ORATORYCLIA [id number] [address] [place] Eosinophils (Bld) [#/Vol] 0.11 10*3/uL Normal <0.46 [facility] Comment on above: Order Comment: Speci men Type: BLOOD SPECIMENOrdering Facility: [facility] Address: [address] [place] [address] Performed By: #### 5 7021-8 ####[facility]ORATORYCLIA [id number] [address] Eosinophils/100 WBC (Bld) 1.1 % Normal [facility] Comment on above: Order Comment: Speci men Type: BLOOD SPECIMENOrdering Facility: [facility] Address: [address] [place] [address] Performed By: #### 5 7021-8 ####[facility]ORATORYCLIA [id number] [address] Erythrocyte distribution width (RBC) [Ratio] 17.2 % High 11.5-15.0 [facility] Comment on above: Order Comment: Speci men Type: BLOOD SPECIMENOrdering Facility: [facility] Address: [address] [place] [address] Performed By: #### 5 7021-8 ####[facility]ORATORYCLIA [id number] [address] Hematocrit (Bld) [Volume fraction] 25.5 % Low 39.0-51.0 [facility] Comment on above: Order Comment: Speci men Type: BLOOD SPECIMENOrdering Facility: [facility] Address: [address] [place] [address] Performed By: #### 5 7021-8 ####[facility]ORATORYCLIA [id number] [address] STATES OF [facility] Hemoglobin (Bld) [Mass/Vol] 7.9 g/dL Low 13.0-17.0 [facility] Comment on above: Order Comment: Speci men Type: BLOOD SPECIMENOrdering Facility: [facility] Address: [address] [place] [address] Performed By: #### 5 7021-8 ####[facility]ATORYCLIA [id number] [address] IMMATURE GRAN % 0.4 % Normal [facility] Comment on above: Order Comment: Speci men Type: BLOOD SPECIMENOrdering Facility: [facility] Address: [address] [place] [address] Performed By: #### 5 7021-8 ####[facility]ORATORYCLIA [id number] [address] IMMATURE GRAN ABS 0.04 k/uL Normal <0.10 [facility] Comment on above: Order Comment: Speci men Type: BLOOD SPECIMENOrdering Facility: [facility] Address: [address] [place] [address] Performed By: #### 5 7021-8 ####[facility]ORATORYCLIA [id number] [address] [place] Lymphocytes (Bld) [#/Vol] 1.66 10*3/uL Normal 1.00-4.00 [facility] Comment on above: Order Comment: Speci men Type: BLOOD SPECIMENOrdering Facility: [facility] Address: [address] [place] [address] Performed By: #### 5 7021-8 ####[facility]ORATORYCLIA [id number] [address] Lymphocytes/100 WBC (Bld) 16.2 % Normal [facility] Comment on above: Order Comment: Speci men Type: BLOOD SPECIMENOrdering Facility: [facility] Address: [address] [place] [address] Performed By: #### 5 7021-8 ####[facility]ORATORYCLIA [id number] [address] MCH (RBC) [Entitic mass] 28.5 pg Normal 26.0-34.0 [facility] Comment on above: Order Comment: Speci men Type: BLOOD SPECIMENOrdering Facility: [facility] Address: [address] [place] [address] Performed By: #### 5 7021-8 ####[facility]ORATORYCLIA [id number] [address] MCHC (RBC) [Mass/Vol] 31.0 g/dL Normal 30.5-36.0 [facility] Comment on above: Order Comment: Speci men Type: BLOOD SPECIMENOrdering Facility: [facility] Address: [address] [place] [address] Performed By: #### 5 7021-8 ####[facility]ORATORYCLIA [id number] [address] MCV (RBC) [Entitic vol] 92.1 fL Normal 80.0-100.0 [facility] Comment on above: Order Comment: Speci men Type: BLOOD SPECIMENOrdering Facility: [facility] Address: [address] [place] [address] Performed By: #### 5 7021-8 ####[facility]ORATORYCLIA [id number] [address] Monocytes (Bld) [#/Vol] 0.51 10*3/uL Normal <0.87 [facility] Comment on above: Order Comment: Speci men Type: BLOOD SPECIMENOrdering Facility: [facility] Address: [address] [place] [address] Performed By: #### 5 7021-8 ####[facility]ORATORYCLIA [id number] [address] Monocytes/100 WBC (Bld) 5.0 % Normal [facility] Comment on above: Order Comment: Speci men Type: BLOOD SPECIMENOrdering Facility: [facility] Address: [address] [place] [address] Performed By: #### 5 7021-8 ####[facility] LABORATORYCLIA [id number] [address] [place] Neutrophils (Bld) [#/Vol] 7.91 10*3/uL High 1.45-7.50 [facility] Comment on above: Order Comment: Speci men Type: BLOOD SPECIMENOrdering Facility: [facility] Address: [address] [place] [address] Performed By: #### 5 7021-8 ####[facility]ORATORYCLIA [id number] [address] [place] Neutrophils/100 WBC (Bld) 76.9 % Normal [facility] Comment on above: Order Comment: Speci men Type: BLOOD SPECIMENOrdering Facility: [facility] Address: [address] [place] [address] Performed By: #### 5 7021-8 ####[facility] LABORATORYCLIA [id number] [address] [place] Nucleated RBC (Bld) [#/Vol] 10*3/uL Normal <0.01 [facility] Comment on above: Order Comment: Speci men Type: BLOOD SPECIMENOrdering Facility: [facility] Address: [address] [place] [address] Performed By: #### 5 7021-8 ####[facility] LABORATORYCLIA [id number] [address] [place] Nucleated RBC/100 WBC (Bld) [Ratio] 0.0 /100 WBC Normal [facility] Comment on above: Order Comment: Speci men Type: BLOOD SPECIMENOrdering Facility: [facility] Address: [address] [place] [address] Performed By: #### 5 7021-8 ####[facility]ORATORYCLIA [id number] [address] [place] Platelet mean volume (Bld) [Entitic vol] 10.3 fL Normal 9.0-12.7 [facility] Comment on above: Order Comment: Speci men Type: BLOOD SPECIMENOrdering Facility: [facility] Address: [address] [place] [address] Performed By: #### 5 7021-8 ####[facility] LABORATORYCLIA [id number] [place] [address] [place] Platelets (Bld) [#/Vol] 152 10*3/uL Normal 150-400 [facility] Comment on above: Order Comment: Speci men Type: BLOOD SPECIMENOrdering Facility: [facility] Address: [address] [place] [address] Performed By: #### 5 7021-8 ####[facility] LABORATORYCLIA [id number] [address] STATES OF [facility] RBC (Bld) [#/Vol] 2.77 10*6/uL Low 4.20-6.00 [facility] Comment on above: Order Comment: Speci men Type: BLOOD SPECIMENOrdering Facility: [facility] Address: [address] [place] [address] Performed By: #### 5 7021-8 ####[facility]ORATORYCLIA [id number] [address] [place] WBC (Bld) [#/Vol] 10.27 10*3/uL Normal 3.70-11.00 [facility] Comment on above: Order Comment: Speci men Type: BLOOD SPECIMENOrdering Facility: [facility] Address: [address] [place] [address] Performed By: #### 5 7021-8 ####[facility] LABORATORYCLIA [id number] [address] [place] Magnesium SerPl-mCncon 08-10 Magnesium [Mass/Vol] 1.8 mg/dL Normal 1.7-2.3 [facility] Comment on above: Order Comment: Speci men Type: BLOOD SPECIMENOrdering Facility: [facility] Address: [facility] [address] [address] Performed By: #### 1 9123-9, 2777-1, 14728-3 ####[facility] LABORATORYCLIA [id number] [address] OF [facility] NURSING PROGon 08-10-2021 NURSING PROG Normal [facility] NURSING PROG Normal [facility] NUTRITIONon 08-10-2021 NUTRITION Normal [facility] Phosphate SerPl-mCncon 08-10 Phosphate [Mass/Vol] 3.7 mg/dL Normal 2.7-4.8 [facility] Comment on above: Order Comment: Speci men Type: BLOOD SPECIMENOrdering Facility: [facility] Address: [address] [place] [address] Performed By: #### 1 9123-9, 2777, 44649-2 ####[facility]ORATORYCLIA [id number] [address] [place] ALLIED HEALTHon 08-09-2021 ALLIED HEALTH Normal [facility] [...] Comment: Speci men Type: BLOOD SPECIMENOrdering Facility: [facility] Address: [facility] [address] [place] [address] Performed By: #### 2 4321-2, 46729-3, 2777-1 ####[facility]ORATORYCLIA [id number] [address] [place] Calcium [Mass/Vol] 9.2 mg/dL Normal 8.5-10.2 [facility] Comment on above: Order Comment: Speci men Type: BLOOD SPECIMENOrdering Facility: [facility] Address: [address] [place] [address] Performed By: #### 2 4321-2, , 2776-05 ####[facility]ORATORYCLIA [id number] [place] [address] [place] Chloride [Moles/Vol] 97 mmol/L Normal 97-105 [facility] Comment on above: Order Comment: Speci men Type: BLOOD SPECIMENOrdering Facility: [facility] Address: [address] [place] [address] Performed By: #### 2 4321-2, , 2776-05 ####[facility]ORATORYCLIA [id number] [address] [place] CO2 [Moles/Vol] 30 mmol/L Normal 22-30 [facility] Comment on above: Order Comment: Speci men Type: BLOOD SPECIMENOrdering Facility: [facility] Address: [address] [place] [address] Performed By: #### 2 4321-2, , 2776-05 ####[facility]ORATORYCLIA [id number] [address] [place] Creatinine [Mass/Vol] 0.51 mg/dL Low 0.73-1.22 [facility] Comment on above: Order Comment: Speci men Type: BLOOD SPECIMENOrdering Facility: [facility] Address: [address] [place] [address] Performed By: #### 2 4321-2, , 2776-05 ####[facility]ORATORYCLIA [id number] [address] ESTIMATED GLOMERULAR FILTRATION RATE 110 mL/min/1.73m??? Normal >=60 [facility] Comment on above: Order Comment: Speci men Type: BLOOD SPECIMENOrdering Facility: [facility] Address: [address] [place] [address] Result Comment: Luzmaria mated Glomerular Filtration Rate [...] 2 4321-2, , 2776-05 ####[facility] [id number] [place] [address] [place] Glucose [Mass/Vol] 106 mg/dL High 74-99 [facility] Comment on above: Order Comment: Shira feldman Type: BLOOD SPECIMENOrdering Facility: [facility] Address: [address] [place], [place] [phone] Result Comment: The [place] [employer] (ADA) provides guidance for cutoff [...] Standards of Medical Care in Diabetes 2016, [place] [employer]. Diabetes Care. 2016.39(Suppl 1). Performed By: #### 2 4321-2, , 2776-05 ####[facility] LABORATORYIA [id number] [place] [address] [place] Potassium [Moles/Vol] 4.1 mmol/L Normal 3.7-5.1 [facility] Comment on above: Order Comment: Shira feldman Type: BLOOD SPECIMENOrdering Facility: [facility] Address: [address] [phone] Performed By: #### 2 4321-2, , 2776-05 ####[facility]ORATORYCLIA [id number] [place] [address] [place] Sodium [Moles/Vol] 135 mmol/L Low 136-144 [facility] Comment on above: Order Comment: Speci men Type: BLOOD SPECIMENOrdering Facility: [facility] Address: [address] [place] [address] Performed By: #### 2 4321-2, , 2776-05 ####[facility]ORATORYCLIA [id number] [place] [address] [place] Urea nitrogen [Mass/Vol] 26 mg/dL High 9-24 [facility] Comment on above: Order Comment: Speci men Type: BLOOD SPECIMENOrdering Facility: [facility] Address: [address] [place] [address] Performed By: #### 2 4321-2, , 2776-05 ####[facility]ATORYCLIA [id number] [address] [place] CBC W Auto Differential pane l (Bld)on 08-09-2021 Basophils (Bld) [#/Vol] 0.06 10*3/uL Normal <0.11 [facility] Comment on above: Order Comment: Speci men Type: BLOOD SPECIMENOrdering Facility: [facility] Address: [address] [place] [address] Performed By: #### 5 7021-8 ####[facility]ORATORYCLIA [id number] [address] [place] Basophils/100 WBC (Bld) 0.5 % Normal [facility] Comment on above: Order Comment: Speci men Type: BLOOD SPECIMENOrdering Facility: [facility] Address: [address] [place] [address] Performed By: #### 5 7021-8 ####[facility]ATORYCLIA [id number] [address] [place] Differential cell count method Nom (Bld) Auto Normal [facility] Comment on above: Order Comment: Speci men Type: BLOOD SPECIMENOrdering Facility: [facility] Address: [address] [place] [address] Performed By: #### 5 7021-8 ####[facility]ORATORYCLIA [id number] [address] [place] Eosinophils (Bld) [#/Vol] 0.42 10*3/uL Normal <0.46 [facility] Comment on above: Order Comment: Speci men Type: BLOOD SPECIMENOrdering Facility: [facility] Address: [address] [place] [address] Performed By: #### 5 7021-8 ####[facility]ORATORYCLIA [id number] [address] [place] Eosinophils/100 WBC (Bld) 3.8 % Normal [facility] Comment on above: Order Comment: Speci men Type: BLOOD SPECIMENOrdering Facility: [facility] Address: [address] [place] [address] Performed By: #### 5 7021-8 ####[facility] LABORATORYCLIA [id number] [address] [place] Erythrocyte distribution width (RBC) [Ratio] 17.6 % High 11.5-15.0 [facility] Comment on above: Order Comment: Speci men Type: BLOOD SPECIMENOrdering Facility: [facility] Address: [address] [place] [address] Performed By: #### 5 7021-8 ####[facility] LABORATORYCLIA [id number] [address] [place] Hematocrit (Bld) [Volume fraction] 29.3 % Low 39.0-51.0 [facility] Comment on above: Order Comment: Speci men Type: BLOOD SPECIMENOrdering Facility: [facility] Address: [address] [place] [address] Performed By: #### 5 7021-8 ####[facility]ORATORYCLIA [id number] [address] [place] Hemoglobin (Bld) [Mass/Vol] 9.0 g/dL Low 13.0-17.0 [facility] Comment on above: Order Comment: Speci men Type: BLOOD SPECIMENOrdering Facility: [facility] Address: [address] [place] [address] Performed By: #### 5 7021-8 ####[facility] LABORATORYCLIA [id number] [address] IMMATURE GRAN % 0.5 % Normal [facility] Comment on above: Order Comment: Speci men Type: BLOOD SPECIMENOrdering Facility: [facility] Address: [address] [place] [address] Performed By: #### 5 7021-8 ####[facility] LABORATORYCLIA [id number] [address] IMMATURE GRAN ABS 0.05 k/uL Normal <0.10 [facility] Comment on above: Order Comment: Speci men Type: BLOOD SPECIMENOrdering Facility: [facility] Address: [address] [place] [address] Performed By: #### 5 7021-8 ####[facility] LABORATORYCLIA [id number] [address] [place] Lymphocytes (Bld) [#/Vol] 2.00 10*3/uL Normal 1.00-4.00 [facility] Comment on above: Order Comment: Speci men Type: BLOOD SPECIMENOrdering Facility: [facility] Address: [address] [place] [address] Performed By: #### 5 7021-8 ####[facility] LABORATORYCLIA [id number] [address] Lymphocytes/100 WBC (Bld) 18.1 % Normal [facility] Comment on above: Order Comment: Speci men Type: BLOOD SPECIMENOrdering Facility: [facility] Address: [address] [place] [address] Performed By: #### 5 7021-8 ####[facility] LABORATORYCLIA [id number] [address] MCH (RBC) [Entitic mass] 28.1 pg Normal 26.0-34.0 [facility] Comment on above: Order Comment: Speci men Type: BLOOD SPECIMENOrdering Facility: [facility] Address: [address] [place] [address] Performed By: #### 5 7021-8 ####[facility] LABORATORYCLIA [id number] [address] STATES [facility] MCHC (RBC) [Mass/Vol] 30.7 g/dL Normal 30.5-36.0 [facility] Comment on above: Order Comment: Speci men Type: BLOOD SPECIMENOrdering Facility: [facility] Address: [address] [place] [address] Performed By: #### 5 7021-8 ####[facility] LABORATORYCLIA [id number] [address] MCV (RBC) [Entitic vol] 91.6 fL Normal 80.0-100.0 [facility] Comment on above: Order Comment: Speci men Type: BLOOD SPECIMENOrdering Facility: [facility] Address: [address] [place] [address] Performed By: #### 5 7021-8 ####[facility] LABORATORYCLIA [id number] [address] Monocytes (Bld) [#/Vol] 0.68 10*3/uL Normal <0.87 [facility] Comment on above: Order Comment: Speci men Type: BLOOD SPECIMENOrdering Facility: [facility] Address: [address] [place] [address] Performed By: #### 5 7021-8 ####[facility] LABORATORYCLIA [id number] [address] Monocytes/100 WBC (Bld) 6.2 % Normal [facility] Comment on above: Order Comment: Speci men Type: BLOOD SPECIMENOrdering Facility: [facility] Address: [address] [place] [address] Performed By: #### 5 7021-8 ####[facility] LABORATORYCLIA [id number] [address] [place] Neutrophils (Bld) [#/Vol] 7.82 10*3/uL High 1.45-7.50 [facility] Comment on above: Order Comment: Speci men Type: BLOOD SPECIMENOrdering Facility: [facility] Address: [address] [place] [address] Performed By: #### 5 7021-8 ####[facility] LABORATORYCLIA [id number] [address] [place] Neutrophils/100 WBC (Bld) 70.9 % Normal [facility] Comment on above: Order Comment: Speci men Type: BLOOD SPECIMENOrdering Facility: [facility] Address: [address] [place] [address] Performed By: #### 5 7021-8 ####[facility] LABORATORYCLIA [id number] [address] [place] Nucleated RBC (Bld) [#/Vol] 10*3/uL Normal <0.01 [facility] Comment on above: Order Comment: Speci men Type: BLOOD SPECIMENOrdering Facility: [facility] Address: [address] [place] [address] Performed By: #### 5 7021-8 ####[facility] LABORATORYCLIA [id number] [address] [place] Nucleated RBC/100 WBC (Bld) [Ratio] 0.0 /100 WBC Normal [facility] Comment on above: Order Comment: Speci men Type: BLOOD SPECIMENOrdering Facility: [facility] Address: [address] [place] [address] Performed By: #### 5 7021-8 ####[facility]ORATORYCLIA [id number] [address] [place] Platelet mean volume (Bld) [Entitic vol] 10.1 fL Normal 9.0-12.7 [facility] Comment on above: Order Comment: Speci men Type: BLOOD SPECIMENOrdering Facility: [facility] Address: [address] [place] [address] Performed By: #### 5 7021-8 ####[facility] LABORATORYCLIA [id number] [place] [address] [place] Platelets (Bld) [#/Vol] 160 10*3/uL Normal 150-400 [facility] Comment on above: Order Comment: Speci men Type: BLOOD SPECIMENOrdering Facility: [facility] Address: [address] [place] [address] Performed By: #### 5 7021-8 ####[facility] LABORATORYCLIA [id number] [place] [address] [place] RBC (Bld) [#/Vol] 3.20 10*6/uL Low 4.20-6.00 [facility] Comment on above: Order Comment: Speci men Type: BLOOD SPECIMENOrdering Facility: [facility] Address: [address] [place] [address] Performed By: #### 5 7021-8 ####[facility] LABORATORYCLIA [id number] [place] [address] [place] WBC (Bld) [#/Vol] 11.03 10*3/uL High 3.70-11.00 [facility] Comment on above: Order Comment: Speci men Type: BLOOD SPECIMENOrdering Facility: [facility] Address: [address] [place] [address] Performed By: #### 5 7021-8 ####[facility] LABORATORYCLIA [id number] [address] [place] CONSULT PROGon 08-09-2021 CONSULT PROG Normal [facility] CT BRAIN WO IVCONon 08-10-19 CT BRAIN WO IVCON Normal [facility] CT BRAIN WO IVCON Normal [facility] Magnesium SerPl-mCncon 08-09 Magnesium [Mass/Vol] 2.0 mg/dL Normal 1.7-2.3 [facility] Comment on above: Order Comment: Shira feldman Type: BLOOD SPECIMENOrdering Facility: [facility] Address: [address] [place] [address] Performed By: #### 2 4321-2, 87647-9, 2777-1 ####[facility] LABORATORYCLIA [id number] [address] OF [facility] NURSING PROGon 08-09-2021 NURSING PROG Normal [facility] OPERATIVE NOon 08-09-2021 OPERATIVE NO Normal [facility] PT panel Coag (PPP)on 2021 INR Coag (PPP) [Relative time] 1.1 {INR} Normal 0.9-1.3 [facility] Comment on above: Order Comment: Shira feldman Type: BLOOD SPECIMENOrdering Facility: [facility] Address: [address] [place] [address] Result Comment: Yris min K Antagonist (VKA) Therapeutic Range: INR 2 to 3 (Target INR of 2.5)Note: For patients treated with VKA drugs, such as warfarin, the [place] [employer] 2012 Guideline recommends [...] al. Chest 2012, 141:7S-47SNishmariangel RA, et al. [facility] 2017, 70: 252-289 Performed By: #### 3 4528-0, 91548-3 ####[facility] LABORATORYCLIA [id number] [address] [place] PT Coag (PPP) [Time] 11.7 s Normal 9.7-13.0 [facility] Comment on above: Order Comment: Speci men Type: BLOOD SPECIMENOrdering Facility: [facility] Address: [address] [place] [address] Performed By: #### 3 4528-0, 64662-1 ####[facility] LABORATORYCLIA [id number] [address] Phosphate SerPl-mCncon 08-09 Phosphate [Mass/Vol] 4.0 mg/dL Normal 2.7-4.8 [facility] Comment on above: Order Comment: Speci men Type: BLOOD SPECIMENOrdering Facility: [facility] Address: [address] [place] [address] Performed By: #### 2 4321-2, 41224-1, 2777-1 ####[facility] LABORATORYCLIA [id number] [address] THERAPY NTon 08-09-2021 THERAPY NT Normal [facility] THERAPY NT Normal [facility] TYPE AND SCREENon 08-09-2021 ABO O Normal [facility] Comment on above: Order Comment: Speci men Type: BLOOD SPECIMENOrdering Facility: [facility] Address: [address] [place] [address] Performed By: #### T SCR ####[facility] BLOOD BANKCLIA [id number] [address] OF [facility] HISTORICAL AB SCR STATUS Negative Normal [facility] Comment on above: Order Comment: Speci men Type: BLOOD SPECIMENOrdering Facility: [facility] Address: [address] [place] [address] Performed By: #### T SCR ####[facility] BLOOD BANKCLIA [id number] [address] Rh Nom (Bld) Positive Normal [facility] Comment on above: Order Comment: Speci men Type: BLOOD SPECIMENOrdering Facility: [facility] Address: [address] [place] [address] Performed By: #### T SCR ####[facility] BLOOD BANKCLIA [id number] [address] TYPE AND SCREEN EXPIRATION 08/12/2021 23:59 Normal [facility] Comment on above: Order Comment: Speci men Type: BLOOD SPECIMENOrdering Facility: [facility] Address: [address] [place] [address] Performed By: #### T SCR ####[facility] BLOOD BANKCLIA [id number] [address] XR ABD 2V SUPINE W UPR/DECUB [...] Coag (PPP) [Time] 26.8 s Normal 23.0-32.4 [facility] Comment on above: Order Comment: Speci men Type: BLOOD SPECIMENOrdering Facility: [facility] Address: [address] [place] [address] Performed By: #### 3 4528-0, 06064-5 ####[facility] LABORATORYCLIA [id number] [address] CASE MANAGEMon 08-08-2021 CASE MANAGEM Normal [facility] CBC W Auto Differential pane l (Bld)on 08-08-2021 Basophils (Bld) [#/Vol] 0.05 10*3/uL Normal <0.11 [facility] Comment on above: Order Comment: Speci men Type: BLOOD SPECIMENOrdering Facility: [facility] Address: [address] [place] [address] Performed By: #### 5 7021-8 ####[facility] LABORATORYCLIA [id number] [address] STATES [facility] Basophils/100 WBC (Bld) 0.5 % Normal [facility] Comment on above: Order Comment: Speci men Type: BLOOD SPECIMENOrdering Facility: [facility] Address: [address] [place] [address] Performed By: #### 5 7021-8 ####[facility] LABORATORYCLIA [id number] [address] [place] Differential cell count method Nom (Bld) Auto Normal [facility] Comment on above: Order Comment: Speci men Type: BLOOD SPECIMENOrdering Facility: [facility] Address: [address] [place] [address] Performed By: #### 5 7021-8 ####[facility] LABORATORYCLIA [id number] [address] [place] Eosinophils (Bld) [#/Vol] 0.17 10*3/uL Normal <0.46 [facility] Comment on above: Order Comment: Speci men Type: BLOOD SPECIMENOrdering Facility: [facility] Address: [address] [place] [address] Performed By: #### 5 7021-8 ####[facility] LABORATORYCLIA [id number] [address] Eosinophils/100 WBC (Bld) 1.6 % Normal [facility] Comment on above: Order Comment: Speci men Type: BLOOD SPECIMENOrdering Facility: [facility] Address: [address] [place] [address] Performed By: #### 5 7021-8 ####[facility] LABORATORYCLIA [id number] [address] [place] Erythrocyte distribution width (RBC) [Ratio] 17.8 % High 11.5-15.0 [facility] Comment on above: Order Comment: Speci men Type: BLOOD SPECIMENOrdering Facility: [facility] Address: [address] [place] [address] Performed By: #### 5 7021-8 ####[facility] LABORATORYCLIA [id number] [address] Hematocrit (Bld) [Volume fraction] 29.6 % Low 39.0-51.0 [facility] Comment on above: Order Comment: Speci men Type: BLOOD SPECIMENOrdering Facility: [facility] Address: [address] [place] [address] Performed By: #### 5 7021-8 ####[facility] LABORATORYCLIA [id number] [address] Hemoglobin (Bld) [Mass/Vol] 9.0 g/dL Low 13.0-17.0 [facility] Comment on above: Order Comment: Speci men Type: BLOOD SPECIMENOrdering Facility: [facility] Address: [address] [place] [address] Performed By: #### 5 7021-8 ####[facility] LABORATORYCLIA [id number] [address] IMMATURE GRAN % 0.5 % Normal [facility] Comment on above: Order Comment: Speci men Type: BLOOD SPECIMENOrdering Facility: [facility] Address: [address] [place] [address] Performed By: #### 5 7021-8 ####[facility] LABORATORYCLIA [id number] [address] IMMATURE GRAN ABS 0.05 k/uL Normal <0.10 [facility] Comment on above: Order Comment: Speci men Type: BLOOD SPECIMENOrdering Facility: [facility] Address: [address] [place] [address] Performed By: #### 5 7021-8 ####[facility] LABORATORYCLIA [id number] [address] [place] Lymphocytes (Bld) [#/Vol] 1.93 10*3/uL Normal 1.00-4.00 [facility] Comment on above: Order Comment: Speci men Type: BLOOD SPECIMENOrdering Facility: [facility] Address: [address] [place] [address] Performed By: #### 5 7021-8 ####[facility] LABORATORYCLIA [id number] [address] Lymphocytes/100 WBC (Bld) 18.2 % Normal [facility] Comment on above: Order Comment: Speci men Type: BLOOD SPECIMENOrdering Facility: [facility] Address: [address] [place] [address] Performed By: #### 5 7021-8 ####[facility] LABORATORYCLIA [id number] [address] MCH (RBC) [Entitic mass] 28.1 pg Normal 26.0-34.0 [facility] Comment on above: Order Comment: Speci men Type: BLOOD SPECIMENOrdering Facility: [facility] Address: [address] [place] [address] Performed By: #### 5 7021-8 ####[facility] LABORATORYCLIA [id number] [address] MCHC (RBC) [Mass/Vol] 30.4 g/dL Low 30.5-36.0 [facility] Comment on above: Order Comment: Speci men Type: BLOOD SPECIMENOrdering Facility: [facility] Address: [address] [place] [address] Performed By: #### 5 7021-8 ####[facility] LABORATORYCLIA [id number] [address] STATES [facility] MCV (RBC) [Entitic vol] 92.5 fL Normal 80.0-100.0 [facility] Comment on above: Order Comment: Speci men Type: BLOOD SPECIMENOrdering Facility: [facility] Address: [address] [place] [address] Performed By: #### 5 7021-8 ####[facility] LABORATORYCLIA [id number] [place] [address] [place] Monocytes (Bld) [#/Vol] 0.75 10*3/uL Normal <0.87 [facility] Comment on above: Order Comment: Speci men Type: BLOOD SPECIMENOrdering Facility: [facility] Address: [address] [place] [address] Performed By: #### 5 7021-8 ####[facility] LABORATORYCLIA [id number] [place] [address] [place] Monocytes/100 WBC (Bld) 7.1 % Normal [facility] Comment on above: Order Comment: Speci men Type: BLOOD SPECIMENOrdering Facility: [facility] Address: [address] [place] [address] Performed By: #### 5 7021-8 ####[facility] LABORATORYCLIA [id number] [place] [address] [place] Neutrophils (Bld) [#/Vol] 7.65 10*3/uL High 1.45-7.50 [facility] Comment on above: Order Comment: Speci men Type: BLOOD SPECIMENOrdering Facility: [facility] Address: [address] [place] [address] Performed By: #### 5 7021-8 ####[facility] LABORATORYCLIA [id number] [address] [place] Neutrophils/100 WBC (Bld) 72.1 % Normal [facility] Comment on above: Order Comment: Speci men Type: BLOOD SPECIMENOrdering Facility: [facility] Address: [address] [place] [address] Performed By: #### 5 7021-8 ####[facility] LABORATORYCLIA [id number] [place] [address] [place] Nucleated RBC (Bld) [#/Vol] 10*3/uL Normal <0.01 [facility] Comment on above: Order Comment: Speci men Type: BLOOD SPECIMENOrdering Facility: [facility] Address: [address] [place] [address] Performed By: #### 5 7021-8 ####[facility] LABORATORYCLIA [id number] [address] Nucleated RBC/100 WBC (Bld) [Ratio] 0.0 /100 WBC Normal [facility] Comment on above: Order Comment: Speci men Type: BLOOD SPECIMENOrdering Facility: [facility] Address: [address] [place] [address] Performed By: #### 5 7021-8 ####[facility] LABORATORYCLIA [id number] [address] [place] Platelet mean volume (Bld) [Entitic vol] 9.8 fL Normal 9.0-12.7 [facility] Comment on above: Order Comment: Speci men Type: BLOOD SPECIMENOrdering Facility: [facility] Address: [address] [place] [address] Performed By: #### 5 7021-8 ####[facility] LABORATORYCLIA [id number] [address] [place] Platelets (Bld) [#/Vol] 175 10*3/uL Normal 150-400 [facility] Comment on above: Order Comment: Speci men Type: BLOOD SPECIMENOrdering Facility: [facility] Address: [address] [place] [address] Performed By: #### 5 7021-8 ####[facility] LABORATORYCLIA [id number] [address] [place] RBC (Bld) [#/Vol] 3.20 10*6/uL Low 4.20-6.00 [facility] Comment on above: Order Comment: Speci men Type: BLOOD SPECIMENOrdering Facility: [facility] Address: [address] [place] [address] Performed By: #### 5 7021-8 ####[facility] LABORATORYCLIA [id number] [address] [place] WBC (Bld) [#/Vol] 10.60 10*3/uL Normal 3.70-11.00 [facility] Comment on above: Order Comment: Speci men Type: BLOOD SPECIMENOrdering Facility: [facility] Address: [address] [place] [address] Performed By: #### 5 7021-8 ####[facility] LABORATORYCLIA [id number] [address] [place] CT BRAIN WO IVCONon 08-09-19 CT BRAIN WO IVCON Normal [facility] NURSING PROGon 08-08-2021 NURSING PROG Normal [facility] Prealbumin [Mass/Vol]on Prealbumin Nephelometry [Mass/Vol] 29 mg/dL Normal - [facility] Comment on above: Order Comment: Speci men Type: BLOOD SPECIMENOrdering Facility: [facility] Address: [address] [place] [address] Performed By: #### 1 4338-8 ####[facility] LABORATORYCLIA [id number] [address] OF [facility] SARS-CoV-2 RNA Resp Ql MEGAN+p robeon 08-08-2021 SARS-CoV-2 (COVID-19) RNA MEGAN+probe Ql (Resp) COVID 19 RESULT: SARS-CoV-2 (Agent of COVID-19) Not Detected by RT-PCR or equivalent method. This test has been authorized by FDA under an Emergency Use Authorization (EUA). Normal [facility] Comment on above: Performed By: #### 9 4500-6 ####[facility] LABORATORYCLIA [id number] [place] [address] [place] ALLIED HEALTHon 08-07-2021 ALLIED HEALTH Normal [facility] Basic metabolic 2000 panelon 08-07-2021 Anion gap [Moles/Vol] 9 mmol/L Normal 9-18 [facility] Comment on above: Order Comment: Speci men Type: BLOOD SPECIMENOrdering Facility: [facility] Address: [address] [place] [address] Performed By: #### 2 4321-2, 2776-05, , HFP ####[facility] LABORATORYCLIA [id number] [place] [address] [place] Calcium [Mass/Vol] 9.4 mg/dL Normal 8.5-10.2 [facility] Comment on above: Order Comment: Speci men Type: BLOOD SPECIMENOrdering Facility: [facility] Address: [address] [place] [address] Performed By: #### 2 4321-2, 2776-05, , HFP ####[facility] LABORATORYCLIA [id number] [place] [address] [place] Chloride [Moles/Vol] 98 mmol/L Normal 97-105 [facility] Comment on above: Order Comment: Speci men Type: BLOOD SPECIMENOrdering Facility: [facility] Address: [address] [place] [address] Performed By: #### 2 4321-2, 2776-05, , HFP ####[facility] LABORATORYCLIA [id number] [place] [address] [place] CO2 [Moles/Vol] 29 mmol/L Normal 22-30 [facility] Comment on above: Order Comment: Speci men Type: BLOOD SPECIMENOrdering Facility: [facility] Address: [address] [place] [address] Performed By: #### 2 4321-2, 2776-05, , HFP ####[facility] LABORATORYCLIA [id number] [place] [address] [place] Creatinine [Mass/Vol] 0.67 mg/dL Low 0.73-1.22 [facility] Comment on above: Order Comment: Speci men Type: BLOOD SPECIMENOrdering Facility: [facility] Address: [address] [place] [address] Performed By: #### 2 4321-2, 2776-05, , HFP ####[facility] LABORATORYCLIA [id number] [address] [place] ESTIMATED GLOMERULAR FILTRATION RATE 101 mL/min/1.73m??? Normal >=60 [facility] Comment on above: Order Comment: Shira feldman Type: BLOOD SPECIMENOrdering Facility: [facility] Address: [address] [place], [place] [id number] Result Comment: Luzmaria mated Glomerular Filtration Rate [...] Performed By: #### 2 4321-2, 2777-, , [facility] ####[facility] LABORATORYCLIA [id number] [place] [address] [place] Glucose [Mass/Vol] 117 mg/dL High 74-99 [facility] Comment on above: Order Comment: Shira feldman Type: BLOOD SPECIMENOrdering Facility: [facility] Address: [address] [place] [address] Result Comment: The [place] [employer] (ADA) provides guidance for cutoff [...] Standards of Medical Care in Diabetes 2016, [place] [employer]. Diabetes Care. 2016.39(Suppl 1). Performed By: #### 2 4321-2, 2777-, , [facility] ####[facility] LABORATORYCLIA [id number] [place] [address] [place] Potassium [Moles/Vol] 4.1 mmol/L Normal 3.7-5.1 [facility] Comment on above: Order Comment: Speci men Type: BLOOD SPECIMENOrdering Facility: [facility] Address: [address] [place], [place] [id number] Performed By: #### 2 4321-2, 2776-05, , [facility] ####[facility] LABORATORYCLIA [id number] [place] [address] [place] Sodium [Moles/Vol] 136 mmol/L Normal 136-144 [facility] Comment on above: Order Comment: Speci men Type: BLOOD SPECIMENOrdering Facility: [facility] Address: [address] [place], [place] [id number] Performed By: #### 2 4321-2, 2776-05, , [facility] ####[facility] LABORATORYCLIA [id number] [place] [address] [place] Urea nitrogen [Mass/Vol] 31 mg/dL High 9-24 [facility] Comment on above: Order Comment: Speci men Type: BLOOD SPECIMENOrdering Facility: [facility] Address: [address] [place] [address] Performed By: #### 2 4321-2, 2776-05, , [facility] ####[facility] LABORATORYCLIA [id number] [address] [place] CBC W Auto Differential pane l (Bld)on 08-07-2021 Basophils (Bld) [#/Vol] 0.03 10*3/uL Normal <0.11 [facility] Comment on above: Order Comment: Speci men Type: BLOOD SPECIMENOrdering Facility: [facility] Address: [address] [place] [address] Performed By: #### 5 7021-8 ####[facility] LABORATORYCLIA [id number] [address] [place] Basophils/100 WBC (Bld) 0.3 % Normal [facility] Comment on above: Order Comment: Speci men Type: BLOOD SPECIMENOrdering Facility: [facility] Address: [address] [address] Performed By: #### 5 7021-8 ####[facility]ATORYCLIA [id number] [address] Differential cell count method Nom (Bld) Auto Normal [facility] Comment on above: Order Comment: Speci men Type: BLOOD SPECIMENOrdering Facility: [facility] Address: [address] [place] [address] Performed By: #### 5 7021-8 ####[facility] LABORATORYCLIA [id number] [address] [place] Eosinophils (Bld) [#/Vol] 0.16 10*3/uL Normal <0.46 [facility] Comment on above: Order Comment: Speci men Type: BLOOD SPECIMENOrdering Facility: [facility] Address: [address] [place] [address] Performed By: #### 5 7021-8 ####[facility]ATORYCLIA [id number] [address] Eosinophils/100 WBC (Bld) 1.6 % Normal [facility] Comment on above: Order Comment: Speci men Type: BLOOD SPECIMENOrdering Facility: [facility] Address: [address] [place] [address] Performed By: #### 5 7021-8 ####[facility] LABORATORYCLIA [id number] [address] Erythrocyte distribution width (RBC) [Ratio] 18.1 % High 11.5-15.0 [facility] Comment on above: Order Comment: Speci men Type: BLOOD SPECIMENOrdering Facility: [facility] Address: [address] [place] [address] Performed By: #### 5 7021-8 ####[facility]ORATORYCLIA [id number] [address] [place] Hematocrit (Bld) [Volume fraction] 30.6 % Low 39.0-51.0 [facility] Comment on above: Order Comment: Speci men Type: BLOOD SPECIMENOrdering Facility: [facility] Address: [address] [place] [address] Performed By: #### 5 7021-8 ####[facility]ORATORYCLIA [id number] [address] [place] Hemoglobin (Bld) [Mass/Vol] 9.4 g/dL Low 13.0-17.0 [facility] Comment on above: Order Comment: Speci men Type: BLOOD SPECIMENOrdering Facility: [facility] Address: [address] [place] [address] Performed By: #### 5 7021-8 ####[facility]ORATORYCLIA [id number] [address] IMMATURE GRAN % 0.4 % Normal [facility] Comment on above: Order Comment: Speci men Type: BLOOD SPECIMENOrdering Facility: [facility] Address: [address] [place] [address] Performed By: #### 5 7021-8 ####[facility] LABORATORYCLIA [id number] [address] IMMATURE GRAN ABS 0.04 k/uL Normal <0.10 [facility] Comment on above: Order Comment: Speci men Type: BLOOD SPECIMENOrdering Facility: [facility] Address: [address] [place] [address] Performed By: #### 5 7021-8 ####[facility] LABORATORYCLIA [id number] [address] [place] Lymphocytes (Bld) [#/Vol] 2.05 10*3/uL Normal 1.00-4.00 [facility] Comment on above: Order Comment: Speci men Type: BLOOD SPECIMENOrdering Facility: [facility] Address: [address] [place] [address] Performed By: #### 5 7021-8 ####[facility]ORATORYCLIA [id number] [address] Lymphocytes/100 WBC (Bld) 20.2 % Normal [facility] Comment on above: Order Comment: Speci men Type: BLOOD SPECIMENOrdering Facility: [facility] Address: [address] [place] [address] Performed By: #### 5 7021-8 ####[facility] LABORATORYCLIA [id number] [address] STATES OF [facility] MCH (RBC) [Entitic mass] 28.8 pg Normal 26.0-34.0 [facility] Comment on above: Order Comment: Speci men Type: BLOOD SPECIMENOrdering Facility: [facility] Address: [address] [place] [address] Performed By: #### 5 7021-8 ####[facility] LABORATORYCLIA [id number] [address] OF [facility] MCHC (RBC) [Mass/Vol] 30.7 g/dL Normal 30.5-36.0 [facility] Comment on above: Order Comment: Speci men Type: BLOOD SPECIMENOrdering Facility: [facility] Address: [address] [place] [address] Performed By: #### 5 7021-8 ####[facility]ORATORYCLIA [id number] [address] MCV (RBC) [Entitic vol] 93.9 fL Normal 80.0-100.0 [facility] Comment on above: Order Comment: Speci men Type: BLOOD SPECIMENOrdering Facility: [facility] Address: [address] [place] [address] Performed By: #### 5 7021-8 ####[facility] LABORATORYCLIA [id number] [address] Monocytes (Bld) [#/Vol] 0.64 10*3/uL Normal <0.87 [facility] Comment on above: Order Comment: Speci men Type: BLOOD SPECIMENOrdering Facility: [facility] Address: [address] [place] [address] Performed By: #### 5 7021-8 ####[facility]ATORYCLIA [id number] [address] [place] Monocytes/100 WBC (Bld) 6.3 % Normal [facility] Comment on above: Order Comment: Speci men Type: BLOOD SPECIMENOrdering Facility: [facility] Address: [address] [place] [address] Performed By: #### 5 7021-8 ####[facility]ATORYCLIA [id number] [address] [place] Neutrophils (Bld) [#/Vol] 7.22 10*3/uL Normal 1.45-7.50 [facility] Comment on above: Order Comment: Speci men Type: BLOOD SPECIMENOrdering Facility: [facility] Address: [address] [place] [address] Performed By: #### 5 7021-8 ####[facility] LABORATORYCLIA [id number] [address] Neutrophils/100 WBC (Bld) 71.2 % Normal [facility] Comment on above: Order Comment: Speci men Type: BLOOD SPECIMENOrdering Facility: [facility] Address: [address] [place] [address] Performed By: #### 5 7021-8 ####[facility]ATORYCLIA [id number] [address] [place] Nucleated RBC (Bld) [#/Vol] 10*3/uL Normal <0.01 [facility] Comment on above: Order Comment: Speci men Type: BLOOD SPECIMENOrdering Facility: [facility] Address: [address] [place] [address] Performed By: #### 5 7021-8 ####[facility]ATORYCLIA [id number] [address] [place] Nucleated RBC/100 WBC (Bld) [Ratio] 0.0 /100 WBC Normal [facility] Comment on above: Order Comment: Speci men Type: BLOOD SPECIMENOrdering Facility: [facility] Address: [address] [place], [place] [address] Performed By: #### 5 7021-8 ####[facility]ORATORYCLIA [id number] [address] Platelet mean volume (Bld) [Entitic vol] 9.9 fL Normal 9.0-12.7 [facility] Comment on above: Order Comment: Speci men Type: BLOOD SPECIMENOrdering Facility: [facility] Address: [address] [place] [address] Performed By: #### 5 7021-8 ####[facility]ORATORYCLIA [id number] [address] [place] Platelets (Bld) [#/Vol] 227 10*3/uL Normal 150-400 [facility] Comment on above: Order Comment: Speci men Type: BLOOD SPECIMENOrdering Facility: [facility] Address: [address] [place] [address] Performed By: #### 5 7021-8 ####[facility]ORATORYCLIA [id number] [address] [place] RBC (Bld) [#/Vol] 3.26 10*6/uL Low 4.20-6.00 [facility] Comment on above: Order Comment: Speci men Type: BLOOD SPECIMENOrdering Facility: [facility] Address: [address] [place], [place] [address] Performed By: #### 5 7021-8 ####[facility]ORATORYCLIA [id number] [address] [place] WBC (Bld) [#/Vol] 10.14 10*3/uL Normal 3.70-11.00 [facility] Comment on above: Order Comment: Speci men Type: BLOOD SPECIMENOrdering Facility: [facility] Address: [address] [place] [address] Performed By: #### 5 7021-8 ####[facility]ORATORYCLIA [id number] [address] BRAIN WO IVCONon 08-08-19 CT BRAIN WO IVCON Normal [facility] HEPATIC FUNCTION PNLon 08-07 Albumin [Mass/Vol] 3.6 g/dL Low 3.9-4.9 [facility] Comment on above: Order Comment: Speci men Type: BLOOD SPECIMENOrdering Facility: [facility] Address: [address] [place] [address] Performed By: #### 2 4321-2, 2776-, , H[facility] ####[facility]ORATORYCLIA [id number] [address] ALP [Catalytic activity/Vol] 124 U/L High 38-113 [facility] Comment on above: Order Comment: Speci men Type: BLOOD SPECIMENOrdering Facility: [facility] Address: [address] [place] [address] Performed By: #### 2 4321-2, 2776-05, , [facility] ####[facility] LABORATORYCLIA [id number] [address] STATES [place] [facility] ALT With P-5'-P [Catalytic activity/Vol] 29 U/L Normal 10-54 [facility] Comment on above: Order Comment: Speci men Type: BLOOD SPECIMENOrdering Facility: [facility] Address: [address] [place] [address] Performed By: #### 2 4321-2, 2776-05, , [facility] ####[facility]ORATORYCLIA [id number] [address] AST With P-5'-P [Catalytic activity/Vol] 18 U/L Normal 14-40 [facility] Comment on above: Order Comment: Speci men Type: BLOOD SPECIMENOrdering Facility: [facility] Address: [address] [place] [address] Performed By: #### 2 4321-2, 277-, , [facility] ####[facility]ORATORYCLIA [id number] [address] [place] Bilirubin [Mass/Vol] 0.3 mg/dL Normal 0.2-1.3 [facility] Comment on above: Order Comment: Speci men Type: BLOOD SPECIMENOrdering Facility: [facility] Address: [address] [place] [address] Performed By: #### 2 4321-2, 2777-, , [facility] ####[facility]ATORYCLIA [id number] [address] [place] Bilirubin.conjugated [Mass/Vol] mg/dL Normal <0.2 [facility] Comment on above: Order Comment: Speci men Type: BLOOD SPECIMENOrdering Facility: [facility] Address: [address] [place] [address] Performed By: #### 2 4321-2, 27711-04, , [facility] ####[facility]ORATORYCLIA [id number] [address] STATES OF [facility] Protein [Mass/Vol] 6.4 g/dL Normal 6.3-8.0 [facility] Comment on above: Order Comment: Speci men Type: BLOOD SPECIMENOrdering Facility: [facility] Address: [address] [place] [address] Performed By: #### 2 4321-2, 27711-04, , [facility] ####[facility]ORATORYCLIA [id number] [address] [place] Magnesium SerPl-mCncon 08-07 Magnesium [Mass/Vol] 2.3 mg/dL Normal 1.7-2.3 [facility] Comment on above: Order Comment: Speci men Type: BLOOD SPECIMENOrdering Facility: [facility] Address: [address] [place] [address] Performed By: #### 2 4321-2, 277-1, , HFP ####[facility]ORATORYCLIA [id number] [address] [place] NURSING PROGon 08-07-2021 NURSING PROG Normal [facility] Phosphate SerPl-mCncon 08-07 Phosphate [Mass/Vol] 3.5 mg/dL Normal 2.7-4.8 [facility] Comment on above: Order Comment: Speci men Type: BLOOD SPECIMENOrdering Facility: [facility] Address: [address] [place] [address] Performed By: #### 2 4321-2, 277-1, , HFP ####[facility] LABORATORYCLIA [id number] [address] [place] ANES POSTPROC EVALon 022 ANES POSTPROC EVAL Normal [facility] Basic metabolic 2000 panelon 08-06-2021 Anion gap [Moles/Vol] 11 mmol/L Normal 9-18 [facility] Comment on above: Order Comment: Speci men Type: BLOOD SPECIMENOrdering Facility: [facility] Address: [address] [place] [address] Performed By: #### 2 4321-2, 2776-05, ####[facility] LABORATORYCLIA [id number] [place] [address] [place] Calcium [Mass/Vol] 8.2 mg/dL Low 8.5-10.2 [facility] Comment on above: Order Comment: Speci men Type: BLOOD SPECIMENOrdering Facility: [facility] Address: [address] [place] [address] Performed By: #### 2 4321-2, 2776-, ####[facility] LABORATORYCLIA [id number] [place] [address] [place] Chloride [Moles/Vol] 100 mmol/L Normal 97-105 [facility] Comment on above: Order Comment: Speci men Type: BLOOD SPECIMENOrdering Facility: [facility] Address: [address] [place] [address] Performed By: #### 2 4321-2, 2776-05, ####[facility] LABORATORYCLIA [id number] [place] [address] [place] CO2 [Moles/Vol] 23 mmol/L Normal 22-30 [facility] Comment on above: Order Comment: Speci men Type: BLOOD SPECIMENOrdering Facility: [facility] Address: [address] [place] [address] Performed By: #### 2 4321-2, 2776-05, ####[facility] LABORATORYCLIA [id number] [place] [address] [place] [facility] Creatinine [Mass/Vol] 0.55 mg/dL Low 0.73-1.22 [facility] Comment on above: Order Comment: Speci men Type: BLOOD SPECIMENOrdering Facility: [facility] Address: [address] [place] [address] Performed By: #### 2 432-2, 2776-05, ####[facility]REMENIA [id number] [address] STATES [place] [facility] ESTIMATED GLOMERULAR FILTRATION RATE 107 mL/min/1.73m??? Normal >=60 [facility] Comment on above: Order Comment: Speci men Type: BLOOD SPECIMENOrdering Facility: [facility] Address: [address] [place] [address] Result Comment: Luzmaria mated Glomerular Filtration Rate [...] #### 2 4321-2, 2776-05, ####[facility]ORATORYCLIA [id number] [place] [address] [place] Glucose [Mass/Vol] 275 mg/dL High 74-99 [facility] Comment on above: Order Comment: Speci men Type: BLOOD SPECIMENOrdering Facility: [facility] Address: [address] [place], [place] [phone] Result Comment: The [place] [employer] (ADA) provides guidance for cutoff [...] Standards of Medical Care in Diabetes 2016, [place] [employer]. Diabetes Care. 2016.39(Suppl 1). Performed By: #### 2 4321-2, 2776-05, ####[facility] LABORATORYCLIA [id number] [place] [address] [place] Potassium [Moles/Vol] 3.6 mmol/L Low 3.7-5.1 [facility] Comment on above: Order Comment: Shira feldman Type: BLOOD SPECIMENOrdering Facility: [facility] Address: [address] [place], [place] [phone] Performed By: #### 2 4321-2, 2776-05, ####[facility]ORATORYCLIA [id number] [place] [address] [place] Sodium [Moles/Vol] 134 mmol/L Low 136-144 [facility] Comment on above: Order Comment: Johni men Type: BLOOD SPECIMENOrdering Facility: [facility] Address: [address] [id number] Performed By: #### 2 4321-2, 2776-05, ####[facility]ORATORYCLIA [id number] [place] [address] [place] Urea nitrogen [Mass/Vol] 29 mg/dL High 9-24 [facility] Comment on above: Order Comment: Speci men Type: BLOOD SPECIMENOrdering Facility: [facility] Address: [address] [place] [address] Performed By: #### 2 4321-2, 2777-1, 33836-5 ####[facility]ORATORYCLIA [id number] [address] STATES [place] [facility] CBC W Auto Differential pane l (Bld)on 08-06-2021 Basophils (Bld) [#/Vol] 0.03 10*3/uL Normal <0.11 [facility] Comment on above: Order Comment: Speci men Type: BLOOD SPECIMENOrdering Facility: [facility] Address: [address] [place] [address] Performed By: #### 5 7021-8 ####[facility]ORATORYCLIA [id number] [address] [place] Basophils/100 WBC (Bld) 0.3 % Normal [facility] Comment on above: Order Comment: Speci men Type: BLOOD SPECIMENOrdering Facility: [facility] Address: [address] [place] [address] Performed By: #### 5 7021-8 ####[facility]ORATORYCLIA [id number] [address] Differential cell count method Nom (Bld) Auto Normal [facility] Comment on above: Order Comment: Speci men Type: BLOOD SPECIMENOrdering Facility: [facility] Address: [address] [place] [address] Performed By: #### 5 7021-8 ####[facility] LABORATORYCLIA [id number] [address] [place] Eosinophils (Bld) [#/Vol] 0.18 10*3/uL Normal <0.46 [facility] Comment on above: Order Comment: Speci men Type: BLOOD SPECIMENOrdering Facility: [facility] Address: [address] [place] [address] Performed By: #### 5 7021-8 ####[facility]ORYCLIA [id number] [address] Eosinophils/100 WBC (Bld) 1.6 % Normal [facility] Comment on above: Order Comment: Speci men Type: BLOOD SPECIMENOrdering Facility: [facility] Address: [address] [place] [address] Performed By: #### 5 7021-8 ####[facility]ORATORYCLIA [id number] [address] Erythrocyte distribution width (RBC) [Ratio] 17.9 % High 11.5-15.0 [facility] Comment on above: Order Comment: Speci men Type: BLOOD SPECIMENOrdering Facility: [facility] Address: [address] [place] [address] Performed By: #### 5 7021-8 ####[facility]ORATORYCLIA [id number] [address] Hematocrit (Bld) [Volume fraction] 27.6 % Low 39.0-51.0 [facility] Comment on above: Order Comment: Speci men Type: BLOOD SPECIMENOrdering Facility: [facility] Address: [address] [place] [address] Performed By: #### 5 7021-8 ####[facility]ORATORYCLIA [id number] [address] [place] Hemoglobin (Bld) [Mass/Vol] 8.5 g/dL Low 13.0-17.0 [facility] Comment on above: Order Comment: Speci men Type: BLOOD SPECIMENOrdering Facility: [facility] Address: [address] [place] [address] Performed By: #### 5 7021-8 ####[facility]ORATORYCLIA [id number] [address] IMMATURE GRAN % 0.6 % Normal [facility] Comment on above: Order Comment: Speci men Type: BLOOD SPECIMENOrdering Facility: [facility] Address: [address] [place] [address] Performed By: #### 5 7021-8 ####[facility]ORATORYCLIA [id number] [address] IMMATURE GRAN ABS 0.07 k/uL Normal <0.10 [facility] Comment on above: Order Comment: Speci men Type: BLOOD SPECIMENOrdering Facility: [facility] Address: [address] [place] [address] Performed By: #### 5 7021-8 ####[facility]ORATORYCLIA [id number] [address] Lymphocytes (Bld) [#/Vol] 1.81 10*3/uL Normal 1.00-4.00 [facility] Comment on above: Order Comment: Speci men Type: BLOOD SPECIMENOrdering Facility: [facility] Address: [address] [place] [address] Performed By: #### 5 7021-8 ####[facility]ORATORYCLIA [id number] [address] Lymphocytes/100 WBC (Bld) 15.7 % Normal [facility] Comment on above: Order Comment: Speci men Type: BLOOD SPECIMENOrdering Facility: [facility] Address: [address] [place] [address] Performed By: #### 5 7021-8 ####[facility]ORATORYCLIA [id number] [address] MCH (RBC) [Entitic mass] 28.6 pg Normal 26.0-34.0 [facility] Comment on above: Order Comment: Speci men Type: BLOOD SPECIMENOrdering Facility: [facility] Address: [address] [place] [address] Performed By: #### 5 7021-8 ####[facility]ATORYCLIA [id number] [address] MCHC (RBC) [Mass/Vol] 30.8 g/dL Normal 30.5-36.0 [facility] Comment on above: Order Comment: Speci men Type: BLOOD SPECIMENOrdering Facility: [facility] Address: [address] [place] [address] Performed By: #### 5 7021-8 ####[facility]ORATORYCLIA [id number] [address] [place] MCV (RBC) [Entitic vol] 92.9 fL Normal 80.0-100.0 [facility] Comment on above: Order Comment: Speci men Type: BLOOD SPECIMENOrdering Facility: [facility] Address: [address] [place] [address] Performed By: #### 5 7021-8 ####[facility]ORATORYCLIA [id number] [address] [place] Monocytes (Bld) [#/Vol] 0.63 10*3/uL Normal <0.87 [facility] Comment on above: Order Comment: Speci men Type: BLOOD SPECIMENOrdering Facility: [facility] Address: [address] [place] [address] Performed By: #### 5 7021-8 ####[facility]ORATORYCLIA [id number] [address] STATES [facility] Monocytes/100 WBC (Bld) 5.5 % Normal [facility] Comment on above: Order Comment: Speci men Type: BLOOD SPECIMENOrdering Facility: [facility] Address: [address] [place] [address] Performed By: #### 5 7021-8 ####[facility]ORATORYCLIA [id number] [address] [place] Neutrophils (Bld) [#/Vol] 8.78 10*3/uL High 1.45-7.50 [facility] Comment on above: Order Comment: Speci men Type: BLOOD SPECIMENOrdering Facility: [facility] Address: [address] [place] [address] Performed By: #### 5 7021-8 ####[facility] LABORATORYCLIA [id number] [address] Neutrophils/100 WBC (Bld) 76.3 % Normal [facility] Comment on above: Order Comment: Speci men Type: BLOOD SPECIMENOrdering Facility: [facility] Address: [address] [address] Performed By: #### 5 7021-8 ####[facility] LABORATORYCLIA [id number] [address] [place] Nucleated RBC (Bld) [#/Vol] 10*3/uL Normal <0.01 [facility] Comment on above: Order Comment: Speci men Type: BLOOD SPECIMENOrdering Facility: [facility] Address: [address] [place] [address] Performed By: #### 5 7021-8 ####[facility] LABORATORYCLIA [id number] [address] Nucleated RBC/100 WBC (Bld) [Ratio] 0.0 /100 WBC Normal [facility] [facility] Comment on above: Order Comment: Speci men Type: BLOOD SPECIMENOrdering Facility: [facility] Address: [address] [place] [address] Performed By: #### 5 7021-8 ####[facility]ORATORYCLIA [id number] [address] Platelet mean volume (Bld) [Entitic vol] 9.9 fL Normal 9.0-12.7 [facility] Comment on above: Order Comment: Speci men Type: BLOOD SPECIMENOrdering Facility: [facility] Address: [address] Performed By: #### 5 7021-8 ####[facility] LABORATORYCLIA [id number] [address] [place] Platelets (Bld) [#/Vol] 230 10*3/uL Normal 150-400 [facility] Comment on above: Order Comment: Speci men Type: BLOOD SPECIMENOrdering Facility: [facility] Address: [address] [place], [place] [address] Performed By: #### 5 7021-8 ####[facility]ORATORYCLIA [id number] [address] OF [facility] RBC (Bld) [#/Vol] 2.97 10*6/uL Low 4.20-6.00 [facility] Comment on above: Order Comment: Speci men Type: BLOOD SPECIMENOrdering Facility: [facility] Address: [address] [place] [address] Performed By: #### 5 7021-8 ####[facility]ATORYCLIA [id number] [address] WBC (Bld) [#/Vol] 11.50 10*3/uL High 3.70-11.00 [facility] Comment on above: Order Comment: Speci men Type: BLOOD SPECIMENOrdering Facility: [facility] Address: [address] [place] [address] Performed By: #### 5 7021-8 ####[facility]ATORYCLIA [id number] [address] CONSULT PROGon 08-06-2021 CONSULT PROG Normal [facility] Magnesium SerPl-mCncon 08-06 Magnesium [Mass/Vol] 1.9 mg/dL Normal 1.7-2.3 [facility] Comment on above: Order Comment: Speci men Type: BLOOD SPECIMENOrdering Facility: [facility] Address: [address] [place] [address] Performed By: #### 2 4321-2, 2777-1, 98718-4 ####[facility]ATORYCLIA [id number] [address] NURSING PROGon 08-06-2021 NURSING PROG Normal [facility] OPERATIVE NOon 08-06-2021 OPERATIVE NO Normal [facility] Phosphate SerPl-mCncon 08-06 Phosphate [Mass/Vol] 4.2 mg/dL Normal 2.7-4.8 [facility] Comment on above: Order Comment: Speci men Type: BLOOD SPECIMENOrdering Facility: [facility] Address: [address] [place] [id number] Performed By: #### 2 4321-2, 2777-1, 89360-0 ####[facility]ORATORYCLIA [id number] [place] [address] [place] ALLIED HEALTHon 08-05-2021 [...] Performed By: #### 3 2355-0 ####[facility]ATORYCLIA [id number] [place] [address] [place] Bacteria Ur Culton Bacteria identified Cx Nom (U) CULTURE, URINE: No growth (<1,000 CFU/ml) Normal [facility] Comment on above: Performed By: #### 6 30-4 ####[facility]ATORYCLIA [id number] [place] [address] [place] Basic metabolic 2000 panelon 08-05-2021 Anion gap [Moles/Vol] 7 mmol/L Low 9-18 [facility] Comment on above: Order Comment: Speci men Type: BLOOD SPECIMENOrdering Facility: [facility] Address: [address] [place] [phone] Performed By: #### 2 4321-2 ####[facility]ATORYCLIA [id number] [place] [address] [place] Calcium [Mass/Vol] 9.5 mg/dL Normal 8.5-10.2 [facility] Comment on above: Order Comment: Speci men Type: BLOOD SPECIMENOrdering Facility: [facility] Address: [address] [address] Performed By: #### 2 4321-2 ####[facility]ORATORYCLIA [id number] [address] [place] Chloride [Moles/Vol] 97 mmol/L Normal 97-105 [facility] Comment on above: Order Comment: Speci men Type: BLOOD SPECIMENOrdering Facility: [facility] Address: [address] [place] [address] Performed By: #### 2 4321-2 ####[facility]ATORYCLIA [id number] [address] [place] CO2 [Moles/Vol] 30 mmol/L Normal 22-30 [facility] Comment on above: Order Comment: Speci men Type: BLOOD SPECIMENOrdering Facility: [facility] Address: [address] [place] [address] Performed By: #### 2 4321-2 ####[facility]ORATORYCLIA [id number] [address] STATES OF [facility] Creatinine [Mass/Vol] 0.61 mg/dL Low 0.73-1.22 [facility] Comment on above: Order Comment: Speci men Type: BLOOD SPECIMENOrdering Facility: [facility] Address: [address] [place] [address] Performed By: #### 2 4321-2 ####[facility]ORATORYCLIA [id number] [address] ESTIMATED GLOMERULAR FILTRATION RATE 104 mL/min/1.73m??? Normal >=60 [facility] Comment on above: Order Comment: Speci men Type: BLOOD SPECIMENOrdering Facility: [facility] Address: [address] [place] [address] Result Comment: Luzmaria mated Glomerular Filtration Rate [...] By: #### 2 4321-2 ####[facility]ORATORYCLIA [id number] [place] [address] [place] Glucose [Mass/Vol] 124 mg/dL High 74-99 [facility] Comment on above: Order Comment: Shira feldman Type: BLOOD SPECIMENOrdering Facility: [facility] Address: [address] [place] [address] Result Comment: The [place] [employer] (ADA) provides guidance for cutoff [...] Standards of Medical Care in Diabetes 2016, [place] [employer]. Diabetes Care. 2016.39(Suppl 1). Performed By: #### 2 4321-2 ####[facility]ATORYCLIA [id number] [place] [address] [place] Potassium [Moles/Vol] 4.9 mmol/L Normal 3.7-5.1 [facility] Comment on above: Order Comment: Shira feldamn Type: BLOOD SPECIMENOrdering Facility: [facility] Address: [address] [address] Performed By: #### 2 4321-2 ####[facility]ORATORYCLIA [id number] [place] [address] [place] Sodium [Moles/Vol] 134 mmol/L Low 136-144 [facility] Comment on above: Order Comment: Shira feldman Type: BLOOD SPECIMENOrdering Facility: [facility] Address: [address] [address] Performed By: #### 2 4321-2 ####[facility]ORATORYCLIA [id number] [place] [address] [place] Urea nitrogen [Mass/Vol] 40 mg/dL High 9-24 [facility] Comment on above: Order Comment: Speci men Type: BLOOD SPECIMENOrdering Facility: [facility] Address: [address] [place] [address] Performed By: #### 2 4321-2 ####[facility]ATORYCLIA [id number] [address] [place] CBC W Auto Differential pane l (Bld)on 08-05-2021 Basophils (Bld) [#/Vol] 0.04 10*3/uL Normal <0.11 [facility] Comment on above: Order Comment: Speci men Type: BLOOD SPECIMENOrdering Facility: [facility] Address: [address] [place] [address] Performed By: #### 5 7021-8 ####[facility]ORATORYCLIA [id number] [address] [place] Basophils/100 WBC (Bld) 0.3 % Normal [facility] Comment on above: Order Comment: Speci men Type: BLOOD SPECIMENOrdering Facility: [facility] Address: [address] [place] [address] Performed By: #### 5 7021-8 ####[facility]ATORYCLIA [id number] [address] Differential cell count method Nom (Bld) Auto Normal [facility] Comment on above: Order Comment: Speci men Type: BLOOD SPECIMENOrdering Facility: [facility] Address: [address] [place] [address] Performed By: #### 5 7021-8 ####[facility]ATORYCLIA [id number] [place] [address] [place] Eosinophils (Bld) [#/Vol] 0.42 10*3/uL Normal <0.46 [facility] Comment on above: Order Comment: Speci men Type: BLOOD SPECIMENOrdering Facility: [facility] Address: [address] [place] [address] Performed By: #### 5 7021-8 ####[facility]ORATORYCLIA [id number] [address] Eosinophils/100 WBC (Bld) 3.6 % Normal [facility] Comment on above: Order Comment: Speci men Type: BLOOD SPECIMENOrdering Facility: [facility] Address: [address] [place] [address] Performed By: #### 5 7021-8 ####[facility]ORATORYCLIA [id number] [address] Erythrocyte distribution width (RBC) [Ratio] 17.9 % High 11.5-15.0 [facility] Comment on above: Order Comment: Speci men Type: BLOOD SPECIMENOrdering Facility: [facility] Address: [address] [place] [address] Performed By: #### 5 7021-8 ####[facility]ORATORYCLIA [id number] [address] Hematocrit (Bld) [Volume fraction] 30.8 % Low 39.0-51.0 [facility] Comment on above: Order Comment: Speci men Type: BLOOD SPECIMENOrdering Facility: [facility] Address: [address] [place] [address] Performed By: #### 5 7021-8 ####[facility]ORATORYCLIA [id number] [address] Hemoglobin (Bld) [Mass/Vol] 9.6 g/dL Low 13.0-17.0 [facility] Comment on above: Order Comment: Speci men Type: BLOOD SPECIMENOrdering Facility: [facility] Address: [address] [place] [address] Performed By: #### 5 7021-8 ####[facility]ORATORYCLIA [id number] [address] IMMATURE GRAN % 0.5 % Normal [facility] Comment on above: Order Comment: Speci men Type: BLOOD SPECIMENOrdering Facility: [facility] Address: [address] [place] [address] Performed By: #### 5 7021-8 ####[facility]ORATORYCLIA [id number] [address] STATES OF [facility] IMMATURE GRAN ABS 0.06 k/uL Normal <0.10 [facility] Comment on above: Order Comment: Speci men Type: BLOOD SPECIMENOrdering Facility: [facility] Address: [address] [place] [address] Performed By: #### 5 7021-8 ####[facility]ORATORYCLIA [id number] [address] Lymphocytes (Bld) [#/Vol] 2.17 10*3/uL Normal 1.00-4.00 [facility] Comment on above: Order Comment: Speci men Type: BLOOD SPECIMENOrdering Facility: [facility] Address: [address] [place] [address] Performed By: #### 5 7021-8 ####[facility]ORATORYCLIA [id number] [address] Lymphocytes/100 WBC (Bld) 18.7 % Normal [facility] Comment on above: Order Comment: Speci men Type: BLOOD SPECIMENOrdering Facility: [facility] Address: [address] [place] [address] Performed By: #### 5 7021-8 ####[facility]ORATORYCLIA [id number] [place] [address] [place] MCH (RBC) [Entitic mass] 28.9 pg Normal 26.0-34.0 [facility] Comment on above: Order Comment: Speci men Type: BLOOD SPECIMENOrdering Facility: [facility] Address: [address] [place] [address] Performed By: #### 5 7021-8 ####[facility]ATORYCLIA [id number] [address] [place] [facility] MCHC (RBC) [Mass/Vol] 31.2 g/dL Normal 30.5-36.0 [facility] Comment on above: Order Comment: Speci men Type: BLOOD SPECIMENOrdering Facility: [facility] Address: [address] [place] [address] Performed By: #### 5 7021-8 ####[facility]ORATORYCLIA [id number] [address] [place] MCV (RBC) [Entitic vol] 92.8 fL Normal 80.0-100.0 [facility] Comment on above: Order Comment: Speci men Type: BLOOD SPECIMENOrdering Facility: [facility] Address: [address] [place] [address] Performed By: #### 5 7021-8 ####[facility]ORATORYCLIA [id number] [address] Monocytes (Bld) [#/Vol] 0.71 10*3/uL Normal <0.87 [facility] Comment on above: Order Comment: Speci men Type: BLOOD SPECIMENOrdering Facility: [facility] Address: [address] [place] [address] Performed By: #### 5 7021-8 ####[facility]ORATORYCLIA [id number] [address] Monocytes/100 WBC (Bld) 6.1 % Normal [facility] Comment on above: Order Comment: Speci men Type: BLOOD SPECIMENOrdering Facility: [facility] Address: [address] [place] [address] Performed By: #### 5 7021-8 ####[facility]ORATORYCLIA [id number] [address] [place] Neutrophils (Bld) [#/Vol] 8.19 10*3/uL High 1.45-7.50 [facility] Comment on above: Order Comment: Speci men Type: BLOOD SPECIMENOrdering Facility: [facility] Address: [address] [address] Performed By: #### 5 7021-8 ####[facility]ORATORYCLIA [id number] [address] Neutrophils/100 WBC (Bld) 70.8 % Normal [facility] Comment on above: Order Comment: Speci men Type: BLOOD SPECIMENOrdering Facility: [facility] Address: [address] [place] [address] Performed By: #### 5 7021-8 ####[facility]ORATORYCLIA [id number] [address] [place] Nucleated RBC (Bld) [#/Vol] 10*3/uL Normal <0.01 [facility] Comment on above: Order Comment: Speci men Type: BLOOD SPECIMENOrdering Facility: [facility] Address: [address] [place] [address] Performed By: #### 5 7021-8 ####[facility]ORATORYCLIA [id number] [address] [place] Nucleated RBC/100 WBC (Bld) [Ratio] 0.0 /100 WBC Normal [facility] Comment on above: Order Comment: Speci men Type: BLOOD SPECIMENOrdering Facility: [facility] Address: [address] [place] [address] Performed By: #### 5 7021-8 ####[facility]ORATORYCLIA [id number] [place] [address] [place] Platelet mean volume (Bld) [Entitic vol] 9.6 fL Normal 9.0-12.7 [facility] Comment on above: Order Comment: Speci men Type: BLOOD SPECIMENOrdering Facility: [facility] Address: [address] [place] [address] Performed By: #### 5 7021-8 ####[facility]ORATORYCLIA [id number] [place] [address] [place] Platelets (Bld) [#/Vol] 339 10*3/uL Normal 150-400 [facility] Comment on above: Order Comment: Speci men Type: BLOOD SPECIMENOrdering Facility: [facility] Address: [address] [place] [address] Performed By: #### 5 7021-8 ####[facility]ORATORYCLIA [id number] [address] STATES OF [facility] RBC (Bld) [#/Vol] 3.32 10*6/uL Low 4.20-6.00 [facility] Comment on above: Order Comment: Speci men Type: BLOOD SPECIMENOrdering Facility: [facility] Address: [address] [place] [address] Performed By: #### 5 7021-8 ####[facility]ORATORYCLIA [id number] [address] OF [facility] WBC (Bld) [#/Vol] 11.59 10*3/uL High 3.70-11.00 [facility] Comment on above: Order Comment: Speci men Type: BLOOD SPECIMENOrdering Facility: [facility] Address: [address] [place] [address] Performed By: #### 5 7021-8 ####[facility]ORATORYCLIA [id number] [address] BRAIN WO IVCONon 08-06-19 CT BRAIN WO IVCON Normal [facility] Magnesium SerPl-mCncon 08-05 Magnesium [Mass/Vol] 2.2 mg/dL Normal 1.7-2.3 [facility] Comment on above: Order Comment: Speci men Type: BLOOD SPECIMENOrdering Facility: [facility] Address: [address] [place] [address] Performed By: #### 1 9123-9, 2777-1 ####[facility]ORATORYCLIA [id number] [address] OF [facility] NURSING PROGon 08-05-2021 NURSING PROG Normal [facility] NURSING PROG Normal [facility] NUTRITIONon 08-05-2021 NUTRITION Normal [facility] OPERATIVE NOon 08-05-2021 OPERATIVE NO Normal [facility] Phosphate SerPl-mCncon 08-05 Phosphate [Mass/Vol] 4.6 mg/dL Normal 2.7-4.8 [facility] Comment on above: Order Comment: Speci men Type: BLOOD SPECIMENOrdering Facility: [facility] Address: [address] [place] [address] Performed By: #### 1 9123-9, 2777-1 ####[facility]ORATORYCLIA [id number] [address] [place] THERAPY NTon 08-05-2021 THERAPY NT Normal [facility] THERAPY NT Normal [facility] Urinalysis complete panel (U )on 08-05-2021 Bilirubin Ql (U) Negative Normal Negative [facility] Comment on above: Order Comment: Speci men Type: URINE SPECIMENOrdering Facility: [facility] Address: [address] [place] [address] Performed By: #### 2 4356-8 ####[facility] [id number] [address] [place] Clarity (Unsp spec) Clear Normal Clear [facility] Comment on above: Order Comment: Speci men Type: URINE SPECIMENOrdering Facility: [facility] Address: [address] [place] [address] Performed By: #### 2 4356-8 ####[facility]ORATORYCLIA [id number] [address] [place] Color (U) Light Yellow Normal yellow [facility] Comment on above: Order Comment: Speci men Type: URINE SPECIMENOrdering Facility: [facility] Address: [address] [place] [address] Performed By: #### 2 4356-8 ####[facility]ORATORYCLIA [id number] [address] [place] Epithelial cells LM.HPF (Urine sed) [#/Area] Few Abnormal None Seen [facility] Comment on above: Order Comment: Speci men Type: URINE SPECIMENOrdering Facility: [facility] Address: [address] [place] [address] Performed By: #### 2 4356-8 ####[facility]ATORYCLIA [id number] [address] [place] Glucose Test strip (U) [Mass/Vol] Negative Normal Negative [facility] Comment on above: Order Comment: Speci men Type: URINE SPECIMENOrdering Facility: [facility] Address: [address] [place] [address] Performed By: #### 2 4356-8 ####[facility]ORATORYCLIA [id number] [address] STATES OF [facility] Hemoglobin Ql (U) Negative Normal Negative [facility] Comment on above: Order Comment: Speci men Type: URINE SPECIMENOrdering Facility: [facility] Address: [address] [place] [address] Performed By: #### 2 4356-8 ####[facility]ORATORYCLIA [id number] [address] STATES OF [facility] Hyaline casts (Urine sed) [#/Area] 1-3 /LPF Abnormal 0 /LPF [facility] Comment on above: Order Comment: Speci men Type: URINE SPECIMENOrdering Facility: [facility] Address: [address] [place] [address] Performed By: #### 2 4356-8 ####[facility]ORATORYCLIA [id number] [address] [place] Ketones Ql (U) Negative Normal Negative [facility] Comment on above: Order Comment: Speci men Type: URINE SPECIMENOrdering Facility: [facility] Address: [address] [place] [address] Performed By: #### 2 4356-8 ####[facility]ATORYCLIA [id number] [address] [place] Leukocyte esterase Test strip Ql (U) Negative Normal Negative [facility] Comment on above: Order Comment: Speci men Type: URINE SPECIMENOrdering Facility: [facility] Address: [address] [place] [address] Performed By: #### 2 4356-8 ####[facility]ORATORYCLIA [id number] [address] [place] Nitrite Ql (U) Negative Normal Negative [facility] Comment on above: Order Comment: Speci men Type: URINE SPECIMENOrdering Facility: [facility] Address: [address] [place] [address] Performed By: #### 2 4356-8 ####[facility]ATORYCLIA [id number] [address] pH (U) 6.0 [pH] Normal 5.0-8.0 [facility] Comment on above: Order Comment: Speci men Type: URINE SPECIMENOrdering Facility: [facility] Address: [address] [place] [address] Performed By: #### 2 4356-8 ####[facility]ORATORYCLIA [id number] [address] STATES [facility] Protein (U) [Mass/Vol] Negative Normal Negative [facility] Comment on above: Order Comment: Speci men Type: URINE SPECIMENOrdering Facility: [facility] Address: [address] [place] [address] Performed By: #### 2 4356-8 ####[facility]ATORYCLIA [id number] [address] [place] RBC LM.HPF (Urine sed) [#/Area] 0-3 /HPF Normal 0-3 /HPF [facility] Comment on above: Order Comment: Speci men Type: URINE SPECIMENOrdering Facility: [facility] Address: [address] [place] [address] Performed By: #### 2 4356-8 ####[facility]ATORYCLIA [id number] [address] [place] Specific gravity (U) [Rel density] 1.015 Normal 1.005-1.030 [facility] Comment on above: Order Comment: Speci men Type: URINE SPECIMENOrdering Facility: [facility] Address: [address] [place] [address] Performed By: #### 2 4356-8 ####[facility]ATORYCLIA [id number] [address] [place] Urobilinogen Ql (U) Normal Normal Negative [facility] Comment on above: Order Comment: Speci men Type: URINE SPECIMENOrdering Facility: [facility] Address: [address] [place] [address] Performed By: #### 2 4356-8 ####[facility]ATORYCLIA [id number] [address] [place] WBC LM.HPF (Urine sed) [#/Area] 0-5 /HPF Normal 0-5 /HPF [facility] Comment on above: Order Comment: Speci men Type: URINE SPECIMENOrdering Facility: [facility] Address: [address] [place] [address] Performed By: #### 2 4356-8 ####[facility]ATORYCLIA [id number] [address] [place] XR ABDOMEN 1V SUPINEon 08-05 XR ABDOMEN 1V SUPINE Normal [facility] XR CHEST 1V FRONTALon [...] Performed By: #### 6 00-7 ####[facility]ORATORYCLIA [id number] [address] Bacteria identified Cx Nom (Bld) CULTURE, BLOOD: No growth 5 days Normal [facility] Comment on above: Performed By: #### 6 00-7 ####[facility]ATORYCLIA [id number] [place] CBC W Auto Differential pane l (Bld)on 08-04-2021 Basophils (Bld) [#/Vol] 0.05 10*3/uL Normal <0.11 [facility] Comment on above: Order Comment: Speci men Type: BLOOD SPECIMENOrdering Facility: [facility] Address: [address] [place] [address] Performed By: #### 5 7021-8 ####[facility] LABORATORYCLIA [id number] [address] Basophils/100 WBC (Bld) 0.4 % Normal [facility] Comment on above: Order Comment: Speci men Type: BLOOD SPECIMENOrdering Facility: [facility] Address: [address] [place] [address] Performed By: #### 5 7021-8 ####[facility] LABORATORYCLIA [id number] [address] Differential cell count method Nom (Bld) Auto Normal [facility] Comment on above: Order Comment: Speci men Type: BLOOD SPECIMENOrdering Facility: [facility] Address: [address] [address] Performed By: #### 5 7021-8 ####[facility] LABORATORYCLIA [id number] [address] STATES OF [facility] Eosinophils (Bld) [#/Vol] 0.21 10*3/uL Normal <0.46 [facility] Comment on above: Order Comment: Speci men Type: BLOOD SPECIMENOrdering Facility: [facility] Address: [address] [address] Performed By: #### 5 7021-8 ####[facility] LABORATORYCLIA [id number] [address] Eosinophils/100 WBC (Bld) 1.7 % Normal [facility] Comment on above: Order Comment: Speci men Type: BLOOD SPECIMENOrdering Facility: [facility] Address: [address] [place] [address] Performed By: #### 5 7021-8 ####[facility] LABORATORYCLIA [id number] [address] Erythrocyte distribution width (RBC) [Ratio] 18.1 % High 11.5-15.0 [facility] Comment on above: Order Comment: Speci men Type: BLOOD SPECIMENOrdering Facility: [facility] Address: [address] [place] [address] Performed By: #### 5 7021-8 ####[facility] LABORATORYCLIA [id number] [address] Hematocrit (Bld) [Volume fraction] 32.0 % Low 39.0-51.0 [facility] Comment on above: Order Comment: Speci men Type: BLOOD SPECIMENOrdering Facility: [facility] Address: [address] [place] [address] Performed By: #### 5 7021-8 ####[facility] LABORATORYCLIA [id number] [address] [place] Hemoglobin (Bld) [Mass/Vol] 10.0 g/dL Low 13.0-17.0 [facility] Comment on above: Order Comment: Speci men Type: BLOOD SPECIMENOrdering Facility: [facility] Address: [address] [place] [address] Performed By: #### 5 7021-8 ####[facility] LABORATORYCLIA [id number] [address] IMMATURE GRAN % 0.6 % Normal [facility] Comment on above: Order Comment: Speci men Type: BLOOD SPECIMENOrdering Facility: [facility] Address: [address] [place] [address] Performed By: #### 5 7021-8 ####[facility] LABORATORYCLIA [id number] [address] IMMATURE GRAN ABS 0.08 k/uL Normal <0.10 [facility] Comment on above: Order Comment: Speci men Type: BLOOD SPECIMENOrdering Facility: [facility] Address: [address] [place] [address] Performed By: #### 5 7021-8 ####[facility] LABORATORYCLIA [id number] [address] Lymphocytes (Bld) [#/Vol] 2.55 10*3/uL Normal 1.00-4.00 [facility] Comment on above: Order Comment: Speci men Type: BLOOD SPECIMENOrdering Facility: [facility] Address: [address] [place] [address] Performed By: #### 5 7021-8 ####[facility] LABORATORYCLIA [id number] [address] Lymphocytes/100 WBC (Bld) 20.5 % Normal [facility] Comment on above: Order Comment: Speci men Type: BLOOD SPECIMENOrdering Facility: [facility] Address: [address] [place] [address] Performed By: #### 5 7021-8 ####[facility] LABORATORYCLIA [id number] [address] MCH (RBC) [Entitic mass] 28.9 pg Normal 26.0-34.0 [facility] Comment on above: Order Comment: Speci men Type: BLOOD SPECIMENOrdering Facility: [facility] Address: [address] [place] [address] Performed By: #### 5 7021-8 ####[facility] LABORATORYCLIA [id number] [address] MCHC (RBC) [Mass/Vol] 31.3 g/dL Normal 30.5-36.0 [facility] Comment on above: Order Comment: Speci men Type: BLOOD SPECIMENOrdering Facility: [facility] Address: [address] [address] Performed By: #### 5 7021-8 ####[facility] LABORATORYCLIA [id number] [address] [place] MCV (RBC) [Entitic vol] 92.5 fL Normal 80.0-100.0 [facility] Comment on above: Order Comment: Speci men Type: BLOOD SPECIMENOrdering Facility: [facility] Address: [address] [place] [address] Performed By: #### 5 7021-8 ####[facility] LABORATORYCLIA [id number] [address] STATES [place] Monocytes (Bld) [#/Vol] 0.85 10*3/uL Normal <0.87 [facility] Comment on above: Order Comment: Speci men Type: BLOOD SPECIMENOrdering Facility: [facility] Address: [address] [place] [address] Performed By: #### 5 7021-8 ####[facility] LABORATORYCLIA [id number] [address] Monocytes/100 WBC (Bld) 6.8 % Normal [facility] Comment on above: Order Comment: Speci men Type: BLOOD SPECIMENOrdering Facility: [facility] Address: [address] [place] [address] Performed By: #### 5 7021-8 ####[facility] LABORATORYCLIA [id number] [address] [place] Neutrophils (Bld) [#/Vol] 8.68 10*3/uL High 1.45-7.50 [facility] Comment on above: Order Comment: Speci men Type: BLOOD SPECIMENOrdering Facility: [facility] Address: [address] [place] [address] Performed By: #### 5 7021-8 ####[facility] LABORATORYCLIA [id number] [address] Neutrophils/100 WBC (Bld) 70.0 % Normal [facility] Comment on above: Order Comment: Speci men Type: BLOOD SPECIMENOrdering Facility: [facility] Address: [address] [place] [address] Performed By: #### 5 7021-8 ####[facility] LABORATORYCLIA [id number] [address] [place] Nucleated RBC (Bld) [#/Vol] 10*3/uL Normal <0.01 [facility] Comment on above: Order Comment: Speci men Type: BLOOD SPECIMENOrdering Facility: [facility] Address: [address] [place] [address] Performed By: #### 5 7021-8 ####[facility] LABORATORYCLIA [id number] [address] Nucleated RBC/100 WBC (Bld) [Ratio] 0.0 /100 WBC Normal [facility] Comment on above: Order Comment: Speci men Type: BLOOD SPECIMENOrdering Facility: [facility] Address: [address] [place] [address] Performed By: #### 5 7021-8 ####[facility] LABORATORYCLIA [id number] [address] [place] Platelet mean volume (Bld) [Entitic vol] 10.0 fL Normal 9.0-12.7 [facility] Comment on above: Order Comment: Speci men Type: BLOOD SPECIMENOrdering Facility: [facility] Address: [address] Performed By: #### 5 7021-8 ####[facility] LABORATORYCLIA [id number] [address] [place] Platelets (Bld) [#/Vol] 393 10*3/uL Normal 150-400 [facility] Comment on above: Order Comment: Speci men Type: BLOOD SPECIMENOrdering Facility: [facility] Address: [address] [place] [address] Performed By: #### 5 7021-8 ####[facility] LABORATORYCLIA [id number] [address] OF [facility] RBC (Bld) [#/Vol] 3.46 10*6/uL Low 4.20-6.00 [facility] Comment on above: Order Comment: Speci men Type: BLOOD SPECIMENOrdering Facility: [facility] Address: [address] [place] [address] Performed By: #### 5 7021-8 ####[facility] LABORATORYCLIA [id number] [address] OF [facility] WBC (Bld) [#/Vol] 12.42 10*3/uL High 3.70-11.00 [facility] Comment on above: Order Comment: Speci men Type: BLOOD SPECIMENOrdering Facility: [facility] Address: [address] [place] [address] Performed By: #### 5 7021-8 ####[facility] LABORATORYCLIA [id number] [address] [place] [address] BRAIN WO IVCONon 08-05-[address] BRAIN WO IVCON Normal [facility] Lactate (Bld) [Moles/Vol]on 08-04-2021 Lactate [Moles/Vol] 1.4 mmol/L Normal 0.5-2.2 [facility] Comment on above: Order Comment: Speci men Type: BLOOD SPECIMENOrdering Facility: [facility] Address: [address] [place] [address] Performed By: #### 3 2693-4 ####[facility] LABORATORYCLIA [id number] [address] PROCALCITONIN (LAB)on 2021 Procalcitonin [Mass/Vol] 0.08 ng/mL Normal <0.09 [facility] Comment on above: Order Comment: Speci men Type: BLOOD SPECIMENOrdering Facility: [facility] Address: [address] [place] [address] Result Comment: For a guided interpretation of test results, please visit the Change in Procalcitonin Calculator, [email or web address]. Performed By: #### P ROCAL ####[facility] LABORATORYCLIA [id number] [address] Prealbumin [Mass/Vol]on 07-07 Prealbumin Nephelometry [Mass/Vol] 35 mg/dL Normal 17-36 [facility] Comment on above: Order Comment: Speci men Type: BLOOD SPECIMENOrdering Facility: [facility] Address: [address] [place] [address] Performed By: #### 1 4338-8 ####[facility] LABORATORYCLIA [id number] [address] SARS-CoV-2 RNA Resp Ql MEGAN+p robeon 08-04-2021 SARS-CoV-2 (COVID-19) RNA MEGAN+probe Ql (Resp) COVID 19 RESULT: SARS-CoV-2 (Agent of COVID-19) Not Detected by RT-PCR or equivalent method. This test has been authorized by FDA under an Emergency Use Authorization (EUA). Normal [facility] Comment on above: Performed By: #### 9 4500-6 ####[facility] LABORATORYCLIA [id number] [address] TYPE AND SCREENon 08-04-2021 ABO O Normal [facility] Comment on above: Order Comment: Speci men Type: BLOOD SPECIMENOrdering Facility: [facility] Address: [address] [place] [address] Performed By: #### T SCR ####[facility] BLOOD BANKCLIA [id number] [address] HISTORICAL AB SCR STATUS Negative Normal [facility] Comment on above: Order Comment: Speci men Type: BLOOD SPECIMENOrdering Facility: [facility] Address: [address] [place] [address] Performed By: #### T SCR ####[facility] BLOOD BANKCLIA [id number] [address] OF [facility] Rh Nom (Bld) Positive Normal [facility] Comment on above: Order Comment: Speci men Type: BLOOD SPECIMENOrdering Facility: [facility] Address: [address] [place] [address] Performed By: #### T SCR ####[facility] BLOOD BANKCLIA [id number] [address] TYPE AND SCREEN EXPIRATION 08/07/2021 23:59 Normal [facility] Comment on above: Order Comment: Speci men Type: BLOOD SPECIMENOrdering Facility: [facility] Address: [address] [place] [address] Performed By: #### T SCR ####[facility] BLOOD BANKCLIA [id number] [address] [place] aPTT PPPon 08-04-2021 aPTT Coag (PPP) [Time] 51.8 s High 23.0-32.4 [facility] Comment on above: Order Comment: Speci men Type: BLOOD SPECIMENOrdering Facility: [facility] Address: [address] [place] [address] Performed By: #### 1 4979-9 ####[facility] LABORATORYCLIA [id number] [address] [place] Basic metabolic 2000 panelon 08-03-2021 Anion gap [Moles/Vol] 9 mmol/L Normal 9-18 [facility] Comment on above: Order Comment: Speci men Type: BLOOD SPECIMENOrdering Facility: [facility] Address: [address] [place] [address] Performed By: #### 2 4321-2, 84969-8, 2777-1 ####[facility] LABORATORYCLIA [id number] [address] STATES OF [facility] Calcium [Mass/Vol] 9.3 mg/dL Normal 8.5-10.2 [facility] Comment on above: Order Comment: Speci men Type: BLOOD SPECIMENOrdering Facility: [facility] Address: [address] [place], [place] [address] Performed By: #### 2 4321-2, , 2776-05 ####[facility] LABORATORYCLIA [id number] [place] [address] [place] Chloride [Moles/Vol] 97 mmol/L Normal 97-105 [facility] Comment on above: Order Comment: Speci men Type: BLOOD SPECIMENOrdering Facility: [facility] Address: [address] [place] [address] Performed By: #### 2 4321-2, , 2776-05 ####[facility] LABORATORYCLIA [id number] [address] [place] CO2 [Moles/Vol] 27 mmol/L Normal 22-30 [facility] Comment on above: Order Comment: Speci men Type: BLOOD SPECIMENOrdering Facility: [facility] Address: [address] [place] [address] Performed By: #### 2 4321-2, , 2776-05 ####[facility] LABORATORYCLIA [id number] [address] [place] Creatinine [Mass/Vol] 0.63 mg/dL Low 0.73-1.22 [facility] Comment on above: Order Comment: Speci men Type: BLOOD SPECIMENOrdering Facility: [facility] Address: [address] [place] [address] Performed By: #### 2 4321-2, , 2776-05 ####[facility] LABORATORYCLIA [id number] [address] OF [facility] ESTIMATED GLOMERULAR FILTRATION RATE 103 mL/min/1.73m??? Normal >=60 [facility] Comment on above: Order Comment: Speci men Type: BLOOD SPECIMENOrdering Facility: [facility] Address: [address] [place] [address] Result Comment: Luzmaria mated Glomerular Filtration Rate [...] 2 4321-2, , 2776-05 ####[facility] LABORATORYCLIA [id number] [place] [address] [place] Glucose [Mass/Vol] 136 mg/dL High 74-99 [facility] Comment on above: Order Comment: Shira feldman Type: BLOOD SPECIMENOrdering Facility: [facility] Address: [address] [place], [place] [address] Result Comment: The [place] [employer] (ADA) provides guidance for cutoff [...] Standards of Medical Care in Diabetes 2016, [place] [employer]. Diabetes Care. 2016.39(Suppl 1). Performed By: #### 2 4321-2, , 2776-05 ####[facility] LABORATORYCLIA [id number] [place] [address] [place] Potassium [Moles/Vol] 4.1 mmol/L Normal 3.7-5.1 [facility] Comment on above: Order Comment: Shira feldman Type: BLOOD SPECIMENOrdering Facility: [facility] Address: [address] [place] [address] Performed By: #### 2 4321-2, , 2776-05 ####[facility] LABORATORYCLIA [id number] [place] [address] [place] Sodium [Moles/Vol] 133 mmol/L Low 136-144 [facility] Comment on above: Order Comment: Speci men Type: BLOOD SPECIMENOrdering Facility: [facility] Address: [address] [place] [address] Performed By: #### 2 4321-2, 74282-7, 2777-1 ####[facility] LABORATORYCLIA [id number] [address] [place] Urea nitrogen [Mass/Vol] 40 mg/dL High 9-24 [facility] Comment on above: Order Comment: Speci men Type: BLOOD SPECIMENOrdering Facility: [facility] Address: [address] [place] [address] Performed By: #### 2 4321-2, , 27711-04 ####[facility] LABORATORYCLIA [id number] [address] CASE MANAGEMon 08-03-2021 CASE MANAGEM Normal [facility] CBC W Auto Differential pane l (Bld)on 08-03-2021 Basophils (Bld) [#/Vol] 0.06 10*3/uL Normal <0.11 [facility] Comment on above: Order Comment: Speci men Type: BLOOD SPECIMENOrdering Facility: [facility] Address: [address] [place] [address] Performed By: #### 5 7021-8 ####[facility] LABORATORYCLIA [id number] [address] [place] Basophils/100 WBC (Bld) 0.5 % Normal [facility] Comment on above: Order Comment: Speci men Type: BLOOD SPECIMENOrdering Facility: [facility] Address: [address] [place] [address] Performed By: #### 5 7021-8 ####[facility] LABORATORYCLIA [id number] [address] [place] Differential cell count method Nom (Bld) Auto Normal [facility] Comment on above: Order Comment: Speci men Type: BLOOD SPECIMENOrdering Facility: [facility] Address: [address] [address] Performed By: #### 5 7021-8 ####[facility] LABORATORYCLIA [id number] [address] Eosinophils (Bld) [#/Vol] 0.23 10*3/uL Normal <0.46 [facility] Comment on above: Order Comment: Speci men Type: BLOOD SPECIMENOrdering Facility: [facility] Address: [address] [place] [address] Performed By: #### 5 7021-8 ####[facility] LABORATORYCLIA [id number] [address] Eosinophils/100 WBC (Bld) 1.8 % Normal [facility] Comment on above: Order Comment: Speci men Type: BLOOD SPECIMENOrdering Facility: [facility] Address: [address] [place] [address] Performed By: #### 5 7021-8 ####[facility] LABORATORYCLIA [id number] [address] Erythrocyte distribution width (RBC) [Ratio] 17.6 % High 11.5-15.0 [facility] Comment on above: Order Comment: Speci men Type: BLOOD SPECIMENOrdering Facility: [facility] Address: [address] [place] [address] Performed By: #### 5 7021-8 ####[facility] LABORATORYCLIA [id number] [address] Hematocrit (Bld) [Volume fraction] 30.7 % Low 39.0-51.0 [facility] Comment on above: Order Comment: Speci men Type: BLOOD SPECIMENOrdering Facility: [facility] Address: [address] [place] [address] Performed By: #### 5 7021-8 ####[facility] LABORATORYCLIA [id number] [place] [address] [place] Hemoglobin (Bld) [Mass/Vol] 9.3 g/dL Low 13.0-17.0 [facility] Comment on above: Order Comment: Speci men Type: BLOOD SPECIMENOrdering Facility: [facility] Address: [address] [place] [address] Performed By: #### 5 7021-8 ####[facility]ORATORYCLIA [id number] [address] [place] IMMATURE GRAN % 0.6 % Normal [facility] Comment on above: Order Comment: Speci men Type: BLOOD SPECIMENOrdering Facility: [facility] Address: [address] [place] [address] Performed By: #### 5 7021-8 ####[facility] LABORATORYCLIA [id number] [address] OF [facility] IMMATURE GRAN ABS 0.08 k/uL Normal <0.10 [facility] Comment on above: Order Comment: Speci men Type: BLOOD SPECIMENOrdering Facility: [facility] Address: [address] [place] [address] Performed By: #### 5 7021-8 ####[facility] LABORATORYCLIA [id number] [place] [address] [place] Lymphocytes (Bld) [#/Vol] 2.45 10*3/uL Normal 1.00-4.00 [facility] Comment on above: Order Comment: Speci men Type: BLOOD SPECIMENOrdering Facility: [facility] Address: [address] [place] [address] Performed By: #### 5 7021-8 ####[facility] LABORATORYCLIA [id number] [address] [place] Lymphocytes/100 WBC (Bld) 19.7 % Normal [facility] Comment on above: Order Comment: Speci men Type: BLOOD SPECIMENOrdering Facility: [facility] Address: [address] [place] [address] Performed By: #### 5 7021-8 ####[facility]ORATORYCLIA [id number] [address] MCH (RBC) [Entitic mass] 28.2 pg Normal 26.0-34.0 [facility] Comment on above: Order Comment: Speci men Type: BLOOD SPECIMENOrdering Facility: [facility] Address: [address] [place] [address] Performed By: #### 5 7021-8 ####[facility] LABORATORYCLIA [id number] [address] STATES OF [facility] MCHC (RBC) [Mass/Vol] 30.3 g/dL Low 30.5-36.0 [facility] Comment on above: Order Comment: Speci men Type: BLOOD SPECIMENOrdering Facility: [facility] Address: [address] [place] [address] Performed By: #### 5 7021-8 ####[facility] LABORATORYCLIA [id number] [address] OF [facility] MCV (RBC) [Entitic vol] 93.0 fL Normal 80.0-100.0 [facility] Comment on above: Order Comment: Speci men Type: BLOOD SPECIMENOrdering Facility: [facility] Address: [address] [place] [address] Performed By: #### 5 7021-8 ####[facility] LABORATORYCLIA [id number] [address] STATES OF [facility] Monocytes (Bld) [#/Vol] 0.72 10*3/uL Normal <0.87 [facility] Comment on above: Order Comment: Speci men Type: BLOOD SPECIMENOrdering Facility: [facility] Address: [address] [place] [address] Performed By: #### 5 7021-8 ####[facility] LABORATORYCLIA [id number] [address] Monocytes/100 WBC (Bld) 5.8 % Normal [facility] Comment on above: Order Comment: Speci men Type: BLOOD SPECIMENOrdering Facility: [facility] Address: [address] [address] Performed By: #### 5 7021-8 ####[facility] LABORATORYCLIA [id number] [address] [place] Neutrophils (Bld) [#/Vol] 8.92 10*3/uL High 1.45-7.50 [facility] Comment on above: Order Comment: Speci men Type: BLOOD SPECIMENOrdering Facility: [facility] Address: [address] [place] [address] Performed By: #### 5 7021-8 ####[facility] LABORATORYCLIA [id number] [address] STATES [facility] Neutrophils/100 WBC (Bld) 71.6 % Normal [facility] Comment on above: Order Comment: Speci men Type: BLOOD SPECIMENOrdering Facility: [facility] Address: [address] [place] [address] Performed By: #### 5 7021-8 ####[facility] LABORATORYCLIA [id number] [address] [place] Nucleated RBC (Bld) [#/Vol] 10*3/uL Normal <0.01 [facility] Comment on above: Order Comment: Speci men Type: BLOOD SPECIMENOrdering Facility: [facility] Address: [address] [place] [address] Performed By: #### 5 7021-8 ####[facility] LABORATORYCLIA [id number] [address] [place] Nucleated RBC/100 WBC (Bld) [Ratio] 0.0 /100 WBC Normal [facility] Comment on above: Order Comment: Speci men Type: BLOOD SPECIMENOrdering Facility: [facility] Address: [address] [place] [address] Performed By: #### 5 7021-8 ####[facility] LABORATORYCLIA [id number] [address] [place] Platelet mean volume (Bld) [Entitic vol] 10.2 fL Normal 9.0-12.7 [facility] Comment on above: Order Comment: Speci men Type: BLOOD SPECIMENOrdering Facility: [facility] Address: [address] [place] [address] Performed By: #### 5 7021-8 ####[facility] LABORATORYCLIA [id number] [address] [place] Platelets (Bld) [#/Vol] 352 10*3/uL Normal 150-400 [facility] Comment on above: Order Comment: Speci men Type: BLOOD SPECIMENOrdering Facility: [facility] Address: [address] [place] [address] Performed By: #### 5 7021-8 ####[facility] LABORATORYCLIA [id number] [place] [address] [place] RBC (Bld) [#/Vol] 3.30 10*6/uL Low 4.20-6.00 [facility] Comment on above: Order Comment: Speci men Type: BLOOD SPECIMENOrdering Facility: [facility] Address: [address] [place] [address] Performed By: #### 5 7021-8 ####[facility] LABORATORYCLIA [id number] [address] OF [facility] WBC (Bld) [#/Vol] 12.46 10*3/uL High 3.70-11.00 [facility] Comment on above: Order Comment: Speci men Type: BLOOD SPECIMENOrdering Facility: [facility] Address: [address] [place] [address] Performed By: #### 5 7021-8 ####[facility] LABORATORYCLIA [id number] [address] OF [facility] CONSULT PROGon 08-03-2021 CONSULT PROG Normal [facility] Magnesium SerPl-mCncon 08-03 Magnesium [Mass/Vol] 2.2 mg/dL Normal 1.7-2.3 [facility] Comment on above: Order Comment: Speci men Type: BLOOD SPECIMENOrdering Facility: [facility] Address: [address] [place] [address] Performed By: #### 2 4321-2, 78039-7, 2777 ####[facility]ORATORYCLIA [id number] [address] STATES OF [facility] NURSING PROGon 08-03-2021 NURSING PROG Normal [facility] Phosphate SerPl-mCncon 08-03 Phosphate [Mass/Vol] 4.2 mg/dL Normal 2.7-4.8 [facility] Comment on above: Order Comment: Speci men Type: BLOOD SPECIMENOrdering Facility: [facility] Address: [address] [place] [address] Performed By: #### 2 4321-2, , 2777 ####[facility]ORATORYCLIA [id number] [address] aPTT PPPon 08-03-2021 aPTT Coag (PPP) [Time] 50.0 s High 23.0-32.4 [facility] Comment on above: Order Comment: Speci men Type: BLOOD SPECIMENOrdering Facility: [facility] Address: [address] [place] [address] Performed By: #### 1 4979-9 ####[facility]ORATORYCLIA [id number] [address] STATES OF [facility] CBC W Auto Differential pane l (Bld)on 08-02-2021 Basophils (Bld) [#/Vol] 10*3/uL Normal <0.11 [facility] Comment on above: Order Comment: Speci men Type: BLOOD SPECIMENOrdering Facility: [facility] Address: [address] [place] [address] Performed By: #### 5 7021-8 ####[facility]ORATORYCLIA [id number] [address] Basophils/100 WBC (Bld) 0.2 % Normal [facility] Comment on above: Order Comment: Speci men Type: BLOOD SPECIMENOrdering Facility: [facility] Address: [address] [place] [address] Performed By: #### 5 7021-8 ####[facility] LABORATORYCLIA [id number] [address] Differential cell count method Nom (Bld) Auto Normal [facility] Comment on above: Order Comment: Speci men Type: BLOOD SPECIMENOrdering Facility: [facility] Address: [address] [place] [address] Performed By: #### 5 7021-8 ####[facility]ORATORYCLIA [id number] [address] Eosinophils (Bld) [#/Vol] 10*3/uL Normal <0.46 [facility] Comment on above: Order Comment: Speci men Type: BLOOD SPECIMENOrdering Facility: [facility] Address: [address] [place] [address] Performed By: #### 5 7021-8 ####[facility]ATORYCLIA [id number] [address] Eosinophils/100 WBC (Bld) 0.0 % Normal [facility] Comment on above: Order Comment: Speci men Type: BLOOD SPECIMENOrdering Facility: [facility] Address: [address] [place] [address] Performed By: #### 5 7021-8 ####[facility]ORATORYCLIA [id number] [address] Erythrocyte distribution width (RBC) [Ratio] 17.3 % High 11.5-15.0 [facility] Comment on above: Order Comment: Speci men Type: BLOOD SPECIMENOrdering Facility: [facility] Address: [address] [place] [address] Performed By: #### 5 7021-8 ####[facility] LABORATORYCLIA [id number] [address] [place] Hematocrit (Bld) [Volume fraction] 30.8 % Low 39.0-51.0 [facility] Comment on above: Order Comment: Speci men Type: BLOOD SPECIMENOrdering Facility: [facility] Address: [address] [place] [address] Performed By: #### 5 7021-8 ####[facility]ORATORYCLIA [id number] [address] [place] Hemoglobin (Bld) [Mass/Vol] 9.7 g/dL Low 13.0-17.0 [facility] Comment on above: Order Comment: Speci men Type: BLOOD SPECIMENOrdering Facility: [facility] Address: [address] [place] [address] Performed By: #### 5 7021-8 ####[facility]ORATORYCLIA [id number] [address] [place] IMMATURE GRAN % 0.5 % Normal [facility] Comment on above: Order Comment: Speci men Type: BLOOD SPECIMENOrdering Facility: [facility] Address: [address] [place] [address] Performed By: #### 5 7021-8 ####[facility]ORATORYCLIA [id number] [address] IMMATURE GRAN ABS 0.07 k/uL Normal <0.10 [facility] Comment on above: Order Comment: Speci men Type: BLOOD SPECIMENOrdering Facility: [facility] Address: [address] [place] [address] Performed By: #### 5 7021-8 ####[facility]ORATORYCLIA [id number] [address] [place] Lymphocytes (Bld) [#/Vol] 1.60 10*3/uL Normal 1.00-4.00 [facility] Comment on above: Order Comment: Speci men Type: BLOOD SPECIMENOrdering Facility: [facility] Address: [address] [place] [address] Performed By: #### 5 7021-8 ####[facility]ATORYCLIA [id number] [address] Lymphocytes/100 WBC (Bld) 12.1 % Normal [facility] Comment on above: Order Comment: Speci men Type: BLOOD SPECIMENOrdering Facility: [facility] Address: [address] [place] [address] Performed By: #### 5 7021-8 ####[facility]ORATORYCLIA [id number] [address] MCH (RBC) [Entitic mass] 28.6 pg Normal 26.0-34.0 [facility] Comment on above: Order Comment: Speci men Type: BLOOD SPECIMENOrdering Facility: [facility] Address: [address] [place] [address] Performed By: #### 5 7021-8 ####[facility]ORATORYCLIA [id number] [address] STATES OF [facility] MCHC (RBC) [Mass/Vol] 31.5 g/dL Normal 30.5-36.0 [facility] Comment on above: Order Comment: Speci men Type: BLOOD SPECIMENOrdering Facility: [facility] Address: [address] [place] [address] Performed By: #### 5 7021-8 ####[facility]ORATORYCLIA [id number] [address] MCV (RBC) [Entitic vol] 90.9 fL Normal 80.0-100.0 [facility] Comment on above: Order Comment: Speci men Type: BLOOD SPECIMENOrdering Facility: [facility] Address: [address] [place] [address] Performed By: #### 5 7021-8 ####[facility]ORATORYCLIA [id number] [address] Monocytes (Bld) [#/Vol] 0.39 10*3/uL Normal <0.87 [facility] Comment on above: Order Comment: Speci men Type: BLOOD SPECIMENOrdering Facility: [facility] Address: [address] [address] Performed By: #### 5 7021-8 ####[facility] LABORATORYCLIA [id number] [address] [place] Monocytes/100 WBC (Bld) 3.0 % Normal [facility] Comment on above: Order Comment: Speci men Type: BLOOD SPECIMENOrdering Facility: [facility] Address: [address] [place] [address] Performed By: #### 5 7021-8 ####[facility]ORATORYCLIA [id number] [place] [address] [place] Neutrophils (Bld) [#/Vol] 11.09 10*3/uL High 1.45-7.50 [facility] Comment on above: Order Comment: Speci men Type: BLOOD SPECIMENOrdering Facility: [facility] Address: [address] [place] [address] Performed By: #### 5 7021-8 ####[facility] LABORATORYCLIA [id number] [address] STATES [facility] Neutrophils/100 WBC (Bld) 84.2 % Normal [facility] Comment on above: Order Comment: Speci men Type: BLOOD SPECIMENOrdering Facility: [facility] Address: [address] [place] [address] Performed By: #### 5 7021-8 ####[facility]ORATORYCLIA [id number] [address] [place] Nucleated RBC (Bld) [#/Vol] 10*3/uL Normal <0.01 [facility] Comment on above: Order Comment: Speci men Type: BLOOD SPECIMENOrdering Facility: [facility] Address: [address] [place] [address] Performed By: #### 5 7021-8 ####[facility]ORATORYCLIA [id number] [address] [place] Nucleated RBC/100 WBC (Bld) [Ratio] 0.0 /100 WBC Normal [facility] Comment on above: Order Comment: Speci men Type: BLOOD SPECIMENOrdering Facility: [facility] Address: [address] [place] [address] Performed By: #### 5 7021-8 ####[facility]ORATORYCLIA [id number] [address] Platelet mean volume (Bld) [Entitic vol] 10.0 fL Normal 9.0-12.7 [facility] Comment on above: Order Comment: Speci men Type: BLOOD SPECIMENOrdering Facility: [facility] Address: [address] [place], [place] [address] Performed By: #### 5 7021-8 ####[facility]ORATORYCLIA [id number] [address] [place] Platelets (Bld) [#/Vol] 358 10*3/uL Normal 150-400 [facility] Comment on above: Order Comment: Speci men Type: BLOOD SPECIMENOrdering Facility: [facility] Address: [address] [place] [address] Performed By: #### 5 7021-8 ####[facility]ORATORYCLIA [id number] [address] [place] RBC (Bld) [#/Vol] 3.39 10*6/uL Low 4.20-6.00 [facility] Comment on above: Order Comment: Speci men Type: BLOOD SPECIMENOrdering Facility: [facility] Address: [address] [place], [place] [address] Performed By: #### 5 7021-8 ####[facility]ORATORYCLIA [id number] [address] [place] WBC (Bld) [#/Vol] 13.17 10*3/uL High 3.70-11.00 [facility] Comment on above: Order Comment: Speci men Type: BLOOD SPECIMENOrdering Facility: [facility] Address: [address] [place] [address] Performed By: #### 5 7021-8 ####[facility] LABORATORYCLIA [id number] [address] OF [facility] NURSING PROGon 08-02-2021 NURSING PROG Normal [facility] THERAPY NTon 08-02-2021 THERAPY NT Normal [facility] aPTT PPPon 08-02-2021 aPTT Coag (PPP) [Time] 54.9 s High 23.0-32.4 [facility] Comment on above: Order Comment: Speci men Type: BLOOD SPECIMENOrdering Facility: [facility] Address: [address] [place] [address] Performed By: #### 1 4979-9 ####[facility]ORATORYCLIA [id number] [address] OF [facility] ALLIED HEALTHon 08-01-2021 ALLIED HEALTH Normal [facility] ALLIED HEALTH Normal [facility] Basic metabolic 2000 panelon 08-01-2021 Anion gap [Moles/Vol] 12 mmol/L Normal 9-18 [facility] Comment on above: Order Comment: Speci men Type: BLOOD SPECIMENOrdering Facility: [facility] Address: [address] [place] [address] Performed By: #### 2 4321-2, 76695-1, 25864-7, 2777-1 ####[facility] LABORATORYCLIA [id number] [place] [address] [place] Calcium [Mass/Vol] 9.1 mg/dL Normal 8.5-10.2 [facility] Comment on above: Order Comment: Speci men Type: BLOOD SPECIMENOrdering Facility: [facility] Address: [address] [place] [address] Performed By: #### 2 4321-2, 50568-9, 56655-6, 2777-1 ####[facility]ORATORYCLIA [id number] [place] [address] [place] Chloride [Moles/Vol] 96 mmol/L Low 97-105 [facility] Comment on above: Order Comment: Speci men Type: BLOOD SPECIMENOrdering Facility: [facility] Address: [address] [place] [address] Performed By: #### 2 4321-2, 48782-4, 91370-3, 2777-1 ####[facility]ITALCLIA [id number] [address] STATES [facility] CO2 [Moles/Vol] 27 mmol/L Normal 22-30 [facility] Comment on above: Order Comment: Speci men Type: BLOOD SPECIMENOrdering Facility: [facility] Address: [address] [place] [address] Performed By: #### 2 4321-2, 10798-9, 52328-7, 2777-1 ####[facility] [id number] [address] Creatinine [Mass/Vol] 0.64 mg/dL Low 0.73-1.22 [facility] Comment on above: Order Comment: Speci men Type: BLOOD SPECIMENOrdering Facility: [facility] Address: [address] [place] [address] Performed By: #### 2 4321-2, 58646-3, 78343-7, 2777- ####[facility] [id number] [address] ESTIMATED GLOMERULAR FILTRATION RATE 102 mL/min/1.73m??? Normal >=60 [facility] Comment on above: Order Comment: Speci men Type: BLOOD SPECIMENOrdering Facility: [facility] Address: [address] [place] [address] Result Comment: Luzmaria mated Glomerular Filtration Rate [...] actual GFR. Performed By: #### 2 4321-2, 16498-2, 41797-4, 2777-1 ####[facility]ORATORYCLIA [id number] [place] [address] [place] Glucose [Mass/Vol] 122 mg/dL High 74-99 [facility] Comment on above: Order Comment: Shira feldman Type: BLOOD SPECIMENOrdering Facility: [facility] Address: [address] [place], [place] [id number] Result Comment: The [place] [employer] (ADA) provides guidance for cutoff [...] Standards of Medical Care in Diabetes 2016, [place] [employer]. Diabetes Care. 2016.39(Suppl 1). Performed By: #### 2 4321-2, 10532-7, 64366-1, 2777-1 ####[facility] LABORATORYCLIA [id number] [place] [address] [place] Potassium [Moles/Vol] 4.2 mmol/L Normal 3.7-5.1 [facility] Comment on above: Order Comment: Shira feldman Type: BLOOD SPECIMENOrdering Facility: [facility] Address: [address] [place], [place] [id number] Performed By: #### 2 4321-2, 39067-2, 30997-3, 2777-1 ####[facility]ORATORYCLIA [id number] [place] [address] [place] Sodium [Moles/Vol] 135 mmol/L Low 136-144 [facility] Comment on above: Order Comment: Shira feldman Type: BLOOD SPECIMENOrdering Facility: [facility] Address: [address] [phone] Performed By: #### 2 4321-2, 68911-3, 32221-7, 2777-1 ####[facility]ORATORYCLIA [id number] [place] [address] [place] Urea nitrogen [Mass/Vol] 36 mg/dL High 9-24 [facility] Comment on above: Order Comment: Speci men Type: BLOOD SPECIMENOrdering Facility: [facility] Address: [address] [place] [address] Performed By: #### 2 4321-2, 05943-3, 73183-2, 2777-1 ####[facility]ORATORYCLIA [id number] [address] [place] CASE MANAGEMon 08-01-2021 CASE MANAGEM Normal [facility] CBC W Auto Differential pane l (Bld)on 08-01-2021 Basophils (Bld) [#/Vol] 0.04 10*3/uL Normal <0.11 [facility] Comment on above: Order Comment: Speci men Type: BLOOD SPECIMENOrdering Facility: [facility] Address: [address] [place] [address] Performed By: #### 5 7021-8 ####[facility]ORATORYCLIA [id number] [address] [place] Basophils/100 WBC (Bld) 0.3 % Normal [facility] Comment on above: Order Comment: Speci men Type: BLOOD SPECIMENOrdering Facility: [facility] Address: [address] [place] [address] Performed By: #### 5 7021-8 ####[facility]ATORYCLIA [id number] [address] [place] Differential cell count method Nom (Bld) Auto Normal [facility] Comment on above: Order Comment: Speci men Type: BLOOD SPECIMENOrdering Facility: [facility] Address: [address] [place] [address] Performed By: #### 5 7021-8 ####[facility]ORATORYCLIA [id number] [place] [address] [place] Eosinophils (Bld) [#/Vol] 0.37 10*3/uL Normal <0.46 [facility] Comment on above: Order Comment: Speci men Type: BLOOD SPECIMENOrdering Facility: [facility] Address: [address] [place] [address] Performed By: #### 5 7021-8 ####[facility]ORATORYCLIA [id number] [address] Eosinophils/100 WBC (Bld) 3.1 % Normal [facility] Comment on above: Order Comment: Speci men Type: BLOOD SPECIMENOrdering Facility: [facility] Address: [address] [place] [address] Performed By: #### 5 7021-8 ####[facility]ORATORYCLIA [id number] [address] [place] Erythrocyte distribution width (RBC) [Ratio] 17.5 % High 11.5-15.0 [facility] Comment on above: Order Comment: Speci men Type: BLOOD SPECIMENOrdering Facility: [facility] Address: [address] [place] [address] Performed By: #### 5 7021-8 ####[facility]ORATORYCLIA [id number] [address] STATES OF [facility] Hematocrit (Bld) [Volume fraction] 30.1 % Low 39.0-51.0 [facility] Comment on above: Order Comment: Speci men Type: BLOOD SPECIMENOrdering Facility: [facility] Address: [address] [place] [address] Performed By: #### 5 7021-8 ####[facility]ORATORYCLIA [id number] [address] [place] Hemoglobin (Bld) [Mass/Vol] 9.1 g/dL Low 13.0-17.0 [facility] Comment on above: Order Comment: Speci men Type: BLOOD SPECIMENOrdering Facility: [facility] Address: [address] [place] [address] Performed By: #### 5 7021-8 ####[facility]ORATORYCLIA [id number] [address] IMMATURE GRAN % 0.6 % Normal [facility] Comment on above: Order Comment: Speci men Type: BLOOD SPECIMENOrdering Facility: [facility] Address: [address] [place] [address] Performed By: #### 5 7021-8 ####[facility]ORATORYCLIA [id number] [address] IMMATURE GRAN ABS 0.07 k/uL Normal <0.10 [facility] Comment on above: Order Comment: Speci men Type: BLOOD SPECIMENOrdering Facility: [facility] Address: [address] [place] [address] Performed By: #### 5 7021-8 ####[facility]ORATORYCLIA [id number] [address] STATES [facility] Lymphocytes (Bld) [#/Vol] 2.05 10*3/uL Normal 1.00-4.00 [facility] Comment on above: Order Comment: Speci men Type: BLOOD SPECIMENOrdering Facility: [facility] Address: [address] [place] [address] Performed By: #### 5 7021-8 ####[facility]ORATORYCLIA [id number] [address] Lymphocytes/100 WBC (Bld) 17.1 % Normal [facility] Comment on above: Order Comment: Speci men Type: BLOOD SPECIMENOrdering Facility: [facility] Address: [address] [place] [address] Performed By: #### 5 7021-8 ####[facility]ORATORYCLIA [id number] [address] STATES [facility] MCH (RBC) [Entitic mass] 27.7 pg Normal 26.0-34.0 [facility] Comment on above: Order Comment: Speci men Type: BLOOD SPECIMENOrdering Facility: [facility] Address: [address] [place] [address] Performed By: #### 5 7021-8 ####[facility]ORATORYCLIA [id number] [address] STATES [facility] MCHC (RBC) [Mass/Vol] 30.2 g/dL Low 30.5-36.0 [facility] Comment on above: Order Comment: Speci men Type: BLOOD SPECIMENOrdering Facility: [facility] Address: [address] [place] [address] Performed By: #### 5 7021-8 ####[facility]ORATORYCLIA [id number] [address] STATES OF [facility] MCV (RBC) [Entitic vol] 91.5 fL Normal 80.0-100.0 [facility] Comment on above: Order Comment: Speci men Type: BLOOD SPECIMENOrdering Facility: [facility] Address: [address] [place] [address] Performed By: #### 5 7021-8 ####[facility]ORATORYCLIA [id number] [address] STATES OF [facility] Monocytes (Bld) [#/Vol] 0.53 10*3/uL Normal <0.87 [facility] Comment on above: Order Comment: Speci men Type: BLOOD SPECIMENOrdering Facility: [facility] Address: [address] [place] [address] Performed By: #### 5 7021-8 ####[facility]ORATORYCLIA [id number] [address] Monocytes/100 WBC (Bld) 4.4 % Normal [facility] Comment on above: Order Comment: Speci men Type: BLOOD SPECIMENOrdering Facility: [facility] Address: [address] [place] [address] Performed By: #### 5 7021-8 ####[facility]ORATORYCLIA [id number] [address] [place] Neutrophils (Bld) [#/Vol] 8.91 10*3/uL High 1.45-7.50 [facility] Comment on above: Order Comment: Speci men Type: BLOOD SPECIMENOrdering Facility: [facility] Address: [address] [place] [address] Performed By: #### 5 7021-8 ####[facility]ORATORYCLIA [id number] [address] Neutrophils/100 WBC (Bld) 74.5 % Normal [facility] Comment on above: Order Comment: Speci men Type: BLOOD SPECIMENOrdering Facility: [facility] Address: [address] [place] [address] Performed By: #### 5 7021-8 ####[facility] LABORATORYCLIA [id number] [address] [place] Nucleated RBC (Bld) [#/Vol] 10*3/uL Normal <0.01 [facility] Comment on above: Order Comment: Speci men Type: BLOOD SPECIMENOrdering Facility: [facility] Address: [address] [place] [address] Performed By: #### 5 7021-8 ####[facility] LABORATORYCLIA [id number] [address] Nucleated RBC/100 WBC (Bld) [Ratio] 0.0 /100 WBC Normal [facility] Comment on above: Order Comment: Speci men Type: BLOOD SPECIMENOrdering Facility: [facility] Address: [address] [place] [address] Performed By: #### 5 7021-8 ####[facility] LABORATORYCLIA [id number] [address] OF [place] Platelet mean volume (Bld) [Entitic vol] 10.4 fL Normal 9.0-12.7 [facility] Comment on above: Order Comment: Speci men Type: BLOOD SPECIMENOrdering Facility: [facility] Address: [address] [place] [address] Performed By: #### 5 7021-8 ####[facility]ORATORYCLIA [id number] [address] OF [facility] Platelets (Bld) [#/Vol] 319 10*3/uL Normal 150-400 [facility] Comment on above: Order Comment: Speci men Type: BLOOD SPECIMENOrdering Facility: [facility] Address: [address] [place] [address] Performed By: #### 5 7021-8 ####[facility] LABORATORYCLIA [id number] [place] [address] [place] RBC (Bld) [#/Vol] 3.29 10*6/uL Low 4.20-6.00 [facility] Comment on above: Order Comment: Speci men Type: BLOOD SPECIMENOrdering Facility: [facility] Address: [address] [place] [address] Performed By: #### 5 7021-8 ####[facility] LABORATORYCLIA [id number] [address] WBC (Bld) [#/Vol] 11.97 10*3/uL High 3.70-11.00 [facility] Comment on above: Order Comment: Speci men Type: BLOOD SPECIMENOrdering Facility: [facility] Address: [address] [place] [address] Performed By: #### 5 7021-8 ####[facility] LABORATORYCLIA [id number] [address] [place] BRAIN WO IVCONon 08-02-19 CT BRAIN WO IVCON Normal [facility] Magnesium SerPl-mCncon 08-01 Magnesium [Mass/Vol] 2.4 mg/dL High 1.7-2.3 [facility] Comment on above: Order Comment: Speci men Type: BLOOD SPECIMENOrdering Facility: [facility] Address: [address] [place] [address] Performed By: #### 2 4321-2, 43225-9, 20603-6, 2777-1 ####[facility] LABORATORYCLIA [id number] [place] [address] NURSING PROGon 08-01-2021 NURSING PROG Normal [facility] NUTRITIONon 08-01-2021 NUTRITION Normal [facility] Phosphate SerPl-mCncon 08-01 Phosphate [Mass/Vol] 3.3 mg/dL Normal 2.7-4.8 [facility] Comment on above: Order Comment: Speci men Type: BLOOD SPECIMENOrdering Facility: [facility] Address: [address] [place] [address] Performed By: #### 2 4321-2, 75815-9, 71678-6, 2777-1 ####[facility] LABORATORYCLIA [id number] [address] Prealbumin [Mass/Vol]on 07-06 Prealbumin Nephelometry [Mass/Vol] 30 mg/dL Normal 17-36 [facility] Comment on above: Order Comment: Speci men Type: BLOOD SPECIMENOrdering Facility: [facility] Address: [address] [place] [address] Performed By: #### 2 4321-2, 74250-5, 99678-3, 2777-1 ####[facility] LABORATORYCLIA [id number] [address] THERAPY NTon 08-01-2021 THERAPY NT Normal [facility] THERAPY NT Normal [facility] TYPE AND SCREENon 08-01-2021 ABO O Normal [facility] Comment on above: Order Comment: Speci men Type: BLOOD SPECIMENOrdering Facility: [facility] Address: [address] [place] [address] Performed By: #### T SCR ####[facility] BLOOD BANKCLIA [id number] [address] HISTORICAL AB SCR STATUS Negative Normal [facility] Comment on above: Order Comment: Speci men Type: BLOOD SPECIMENOrdering Facility: [facility] Address: [address] [place] [address] Performed By: #### T SCR ####[facility] BLOOD BANKCLIA [id number] [address] Rh Nom (Bld) Positive Normal [facility] Comment on above: Order Comment: Speci men Type: BLOOD SPECIMENOrdering Facility: [facility] Address: [address] [place] [address] Performed By: #### T SCR ####[facility] BLOOD BANKCLIA [id number] [address] TYPE AND SCREEN EXPIRATION 08/04/2021 23:59 Normal [facility] Comment on above: Order Comment: Speci men Type: BLOOD SPECIMENOrdering Facility: [facility] Address: [address] [place] [address] Performed By: #### T SCR ####[facility] BLOOD BANKCLIA [id number] [address] XR CHEST 1V FRONTALon 2021 XR CHEST 1V FRONTAL Normal [facility] aPTT PPPon 08-01-2021 aPTT Coag (PPP) [Time] 50.9 s High 23.0-32.4 [facility] Comment on above: Order Comment: Speci men Type: BLOOD SPECIMENOrdering Facility: [facility] Address: [address] [place] [address] Performed By: #### 1 4979-9 ####[facility] LABORATORYCLIA [id number] [address] CBC W Auto Differential pane l (Bld)on 07-31-2021 Basophils (Bld) [#/Vol] 0.05 10*3/uL Normal <0.11 [facility] Comment on above: Order Comment: Speci men Type: BLOOD SPECIMENOrdering Facility: [facility] Address: [address] [place] [address] Performed By: #### 5 7021-8 ####[facility] LABORATORYCLIA [id number] [address] Basophils/100 WBC (Bld) 0.4 % Normal [facility] Comment on above: Order Comment: Speci men Type: BLOOD SPECIMENOrdering Facility: [facility] Address: [address] [place] [address] Performed By: #### 5 7021-8 ####[facility] LABORATORYCLIA [id number] [address] [place] Differential cell count method Nom (Bld) Auto Normal [facility] Comment on above: Order Comment: Speci men Type: BLOOD SPECIMENOrdering Facility: [facility] Address: [address] [place] [address] Performed By: #### 5 7021-8 ####[facility] LABORATORYCLIA [id number] [address] [place] Eosinophils (Bld) [#/Vol] 0.51 10*3/uL High <0.46 [facility] Comment on above: Order Comment: Speci men Type: BLOOD SPECIMENOrdering Facility: [facility] Address: [address] [place] [address] Performed By: #### 5 7021-8 ####[facility] LABORATORYCLIA [id number] [address] Eosinophils/100 WBC (Bld) 4.5 % Normal [facility] Comment on above: Order Comment: Speci men Type: BLOOD SPECIMENOrdering Facility: [facility] Address: [address] [place] [address] Performed By: #### 5 7021-8 ####[facility] LABORATORYCLIA [id number] [address] [place] Erythrocyte distribution width (RBC) [Ratio] 17.5 % High 11.5-15.0 [facility] Comment on above: Order Comment: Speci men Type: BLOOD SPECIMENOrdering Facility: [facility] Address: [address] [place] [address] Performed By: #### 5 7021-8 ####[facility] LABORATORYCLIA [id number] [address] Hematocrit (Bld) [Volume fraction] 30.4 % Low 39.0-51.0 [facility] Comment on above: Order Comment: Speci men Type: BLOOD SPECIMENOrdering Facility: [facility] Address: [address] [place] [address] Performed By: #### 5 7021-8 ####[facility] LABORATORYCLIA [id number] [address] [place] Hemoglobin (Bld) [Mass/Vol] 9.2 g/dL Low 13.0-17.0 [facility] Comment on above: Order Comment: Speci men Type: BLOOD SPECIMENOrdering Facility: [facility] Address: [address] [place] [address] Performed By: #### 5 7021-8 ####[facility] LABORATORYCLIA [id number] [address] IMMATURE GRAN % 0.5 % Normal [facility] Comment on above: Order Comment: Speci men Type: BLOOD SPECIMENOrdering Facility: [facility] Address: [address] [place] [address] Performed By: #### 5 7021-8 ####[facility] LABORATORYCLIA [id number] [address] IMMATURE GRAN ABS 0.06 k/uL Normal <0.10 [facility] Comment on above: Order Comment: Speci men Type: BLOOD SPECIMENOrdering Facility: [facility] Address: [address] [place] [address] Performed By: #### 5 7021-8 ####[facility] LABORATORYCLIA [id number] [address] [place] Lymphocytes (Bld) [#/Vol] 1.99 10*3/uL Normal 1.00-4.00 [facility] Comment on above: Order Comment: Speci men Type: BLOOD SPECIMENOrdering Facility: [facility] Address: [address] [place] [address] Performed By: #### 5 7021-8 ####[facility] LABORATORYCLIA [id number] [address] Lymphocytes/100 WBC (Bld) 17.6 % Normal [facility] Comment on above: Order Comment: Speci men Type: BLOOD SPECIMENOrdering Facility: [facility] Address: [address] [place] [address] Performed By: #### 5 7021-8 ####[facility] LABORATORYCLIA [id number] [address] MCH (RBC) [Entitic mass] 28.4 pg Normal 26.0-34.0 [facility] Comment on above: Order Comment: Speci men Type: BLOOD SPECIMENOrdering Facility: [facility] Address: [address] [place] [address] Performed By: #### 5 7021-8 ####[facility] LABORATORYCLIA [id number] [address] MCHC (RBC) [Mass/Vol] 30.3 g/dL Low 30.5-36.0 [facility] Comment on above: Order Comment: Speci men Type: BLOOD SPECIMENOrdering Facility: [facility] Address: [address] [place] [address] Performed By: #### 5 7021-8 ####[facility] LABORATORYCLIA [id number] [address] MCV (RBC) [Entitic vol] 93.8 fL Normal 80.0-100.0 [facility] Comment on above: Order Comment: Speci men Type: BLOOD SPECIMENOrdering Facility: [facility] Address: [address] [place] [address] Performed By: #### 5 7021-8 ####[facility] LABORATORYCLIA [id number] [address] Monocytes (Bld) [#/Vol] 0.57 10*3/uL Normal <0.87 [facility] Comment on above: Order Comment: Speci men Type: BLOOD SPECIMENOrdering Facility: [facility] Address: [address] [place] [address] Performed By: #### 5 7021-8 ####[facility] LABORATORYCLIA [id number] [address] [place] Monocytes/100 WBC (Bld) 5.0 % Normal [facility] Comment on above: Order Comment: Speci men Type: BLOOD SPECIMENOrdering Facility: [facility] Address: [address] [place] [address] Performed By: #### 5 7021-8 ####[facility]ORATORYCLIA [id number] [place] [address] [place] Neutrophils (Bld) [#/Vol] 8.12 10*3/uL High 1.45-7.50 [facility] Comment on above: Order Comment: Speci men Type: BLOOD SPECIMENOrdering Facility: [facility] Address: [address] [place] [address] Performed By: #### 5 7021-8 ####[facility] LABORATORYCLIA [id number] [address] [place] Neutrophils/100 WBC (Bld) 72.0 % Normal [facility] Comment on above: Order Comment: Speci men Type: BLOOD SPECIMENOrdering Facility: [facility] Address: [address] [place] [address] Performed By: #### 5 7021-8 ####[facility]ORATORYCLIA [id number] [place] [address] [place] Nucleated RBC (Bld) [#/Vol] 10*3/uL Normal <0.01 [facility] Comment on above: Order Comment: Speci men Type: BLOOD SPECIMENOrdering Facility: [facility] Address: [address] [place] [address] Performed By: #### 5 7021-8 ####[facility]ORATORYCLIA [id number] [address] [place] Nucleated RBC/100 WBC (Bld) [Ratio] 0.0 /100 WBC Normal [facility] Comment on above: Order Comment: Speci men Type: BLOOD SPECIMENOrdering Facility: [facility] Address: [address] [place] [address] Performed By: #### 5 7021-8 ####[facility] LABORATORYCLIA [id number] [place] [address] [place] Platelet mean volume (Bld) [Entitic vol] 10.9 fL Normal 9.0-12.7 [facility] Comment on above: Order Comment: Speci men Type: BLOOD SPECIMENOrdering Facility: [facility] Address: [address] [place] [address] Performed By: #### 5 7021-8 ####[facility] LABORATORYCLIA [id number] [place] [address] [place] Platelets (Bld) [#/Vol] 303 10*3/uL Normal 150-400 [facility] Comment on above: Order Comment: Speci men Type: BLOOD SPECIMENOrdering Facility: [facility] Address: [address] [place] [address] Performed By: #### 5 7021-8 ####[facility] LABORATORYCLIA [id number] [place] [address] [place] RBC (Bld) [#/Vol] 3.24 10*6/uL Low 4.20-6.00 [facility] Comment on above: Order Comment: Speci men Type: BLOOD SPECIMENOrdering Facility: [facility] Address: [address] [place] [address] Performed By: #### 5 7021-8 ####[facility] LABORATORYCLIA [id number] [place] [address] [place] WBC (Bld) [#/Vol] 11.30 10*3/uL High 3.70-11.00 [facility] Comment on above: Order Comment: Speci men Type: BLOOD SPECIMENOrdering Facility: [facility] Address: [address] [place] [address] Performed By: #### 5 7021-8 ####[facility] LABORATORYCLIA [id number] [address] NURSING PROGon 07-31-2021 NURSING PROG Normal [facility] aPTT PPPon 07-31-2021 aPTT Coag (PPP) [Time] 64.9 s High 23.0-32.4 [facility] Comment on above: Order Comment: Speci men Type: BLOOD SPECIMENOrdering Facility: [facility] Address: [address] [place] [address] Performed By: #### 1 4979-9 ####[facility] LABORATORYCLIA [id number] [address] OF [facility] ALLIED HEALTHon 07-30-2021 ALLIED HEALTH Normal [facility] Bacteria CSF Culton 07-31-19 22 Bacteria identified Cx Nom (CSF) CULTURE, CSF: No growth 14 days GRAM STAIN: No organisms seen Few Mononuclear cells Rare Polymorphonuclear leukocytes Gram stain performed on cytospun specimen. Normal [facility] Comment on above: Performed By: #### 6 06-4 ####[facility] LABORATORYCLIA [id number] [place] [address] [place] Basic metabolic 2000 panelon 07-30-2021 Anion gap [Moles/Vol] 9 mmol/L Normal 9-18 [facility] Comment on above: Order Comment: Speci men Type: BLOOD SPECIMENOrdering Facility: [facility] Address: [address] [place] [address] Performed By: #### 2 777-1, 52163-3, 40703-6 ####[facility] LABORATORYCLIA [id number] [address] STATES OF [facility] Calcium [Mass/Vol] 8.9 mg/dL Normal 8.5-10.2 [facility] Comment on above: Order Comment: Speci men Type: BLOOD SPECIMENOrdering Facility: [facility] Address: [address] [place] [address] Performed By: #### 2 777-1, 96287-8, ####[facility] LABORATORYCLIA [id number] [place] [address] [place] Chloride [Moles/Vol] 95 mmol/L Low 97-105 [facility] Comment on above: Order Comment: Speci men Type: BLOOD SPECIMENOrdering Facility: [facility] Address: [address] [place] [address] Performed By: #### 2 777-1, 31642-5, ####[facility] LABORATORYCLIA [id number] [place] [id number] [place] CO2 [Moles/Vol] 28 mmol/L Normal 22-30 [facility] Comment on above: Order Comment: Speci men Type: BLOOD SPECIMENOrdering Facility: [facility] Address: [address] [place] [address] Performed By: #### 2 777-1, , ####[facility]ITALCLIA [id number] [address] OF [facility] Creatinine [Mass/Vol] 0.67 mg/dL Low 0.73-1.22 [facility] Comment on above: Order Comment: Speci men Type: BLOOD SPECIMENOrdering Facility: [facility] Address: [address] [place] [address] Performed By: #### 2 777-1, , ####[facility] LABORATORYCLIA [id number] [address] ESTIMATED GLOMERULAR FILTRATION RATE 101 mL/min/1.73m??? Normal >=60 [facility] Comment on above: Order Comment: Speci men Type: BLOOD SPECIMENOrdering Facility: [facility] Address: [address] [place] [address] Result Comment: Luzmaria mated Glomerular Filtration Rate [...] actual GFR. Performed By: #### 2 777-1, 43359-0, ####[facility] LABORATORYCLIA [id number] [place] [address] [place] Glucose [Mass/Vol] 125 mg/dL High 74-99 [facility] Comment on above: Order Comment: Shira feldman Type: BLOOD SPECIMENOrdering Facility: [facility] Address: [address] [place], [place] [id number] Result Comment: The [place] [employer] (ADA) provides guidance for cutoff [...] Standards of Medical Care in Diabetes 2016, [place] [employer]. Diabetes Care. 2016.39(Suppl 1). Performed By: #### 2 777-1, 73364-0, ####[facility] LABORATORYCLIA [id number] [place] [address] [place] Potassium [Moles/Vol] 3.9 mmol/L Normal 3.7-5.1 [facility] Comment on above: Order Comment: Shira feldman Type: BLOOD SPECIMENOrdering Facility: [facility] Address: [address] [place] [address] Performed By: #### 2 777-1, 31694-4, ####[facility] LABORATORYCLIA [id number] [place] [address] [place] Sodium [Moles/Vol] 132 mmol/L Low 136-144 [facility] Comment on above: Order Comment: Speci men Type: BLOOD SPECIMENOrdering Facility: [facility] Address: [address] [place] [address] Performed By: #### 2 777-1, 17287-6, ####[facility] LABORATORYCLIA [id number] [address] STATES [facility] Urea nitrogen [Mass/Vol] 38 mg/dL High 9-24 [facility] Comment on above: Order Comment: Speci men Type: BLOOD SPECIMENOrdering Facility: [facility] Address: [address] [place] [address] Performed By: #### 2 777-1, 10818-8, ####[facility] LABORATORYCLIA [id number] [address] [place] CBC W Auto Differential pane l (Bld)on 07-30-2021 Basophils (Bld) [#/Vol] 0.04 10*3/uL Normal <0.11 [facility] Comment on above: Order Comment: Speci men Type: BLOOD SPECIMENOrdering Facility: [facility] Address: [address] [place] [address] Performed By: #### 5 7021-8 ####[facility] LABORATORYCLIA [id number] [address] [place] Basophils/100 WBC (Bld) 0.4 % Normal [facility] Comment on above: Order Comment: Speci men Type: BLOOD SPECIMENOrdering Facility: [facility] Address: [address] [place] [address] Performed By: #### 5 7021-8 ####[facility] LABORATORYCLIA [id number] [address] Differential cell count method Nom (Bld) Auto Normal [facility] Comment on above: Order Comment: Speci men Type: BLOOD SPECIMENOrdering Facility: [facility] Address: [address] [place] [address] Performed By: #### 5 7021-8 ####[facility]ORATORYCLIA [id number] [address] [place] Eosinophils (Bld) [#/Vol] 0.30 10*3/uL Normal <0.46 [facility] Comment on above: Order Comment: Speci men Type: BLOOD SPECIMENOrdering Facility: [facility] Address: [address] [place] [address] Performed By: #### 5 7021-8 ####[facility] LABORATORYCLIA [id number] [address] Eosinophils/100 WBC (Bld) 2.7 % Normal [facility] Comment on above: Order Comment: Speci men Type: BLOOD SPECIMENOrdering Facility: [facility] Address: [address] [place] [address] Performed By: #### 5 7021-8 ####[facility] LABORATORYCLIA [id number] [address] Erythrocyte distribution width (RBC) [Ratio] 17.2 % High 11.5-15.0 [facility] Comment on above: Order Comment: Speci men Type: BLOOD SPECIMENOrdering Facility: [facility] Address: [address] [place] [address] Performed By: #### 5 7021-8 ####[facility] LABORATORYCLIA [id number] [address] [place] Hematocrit (Bld) [Volume fraction] 30.8 % Low 39.0-51.0 [facility] Comment on above: Order Comment: Speci men Type: BLOOD SPECIMENOrdering Facility: [facility] Address: [address] [place] [address] Performed By: #### 5 7021-8 ####[facility] LABORATORYCLIA [id number] [address] Hemoglobin (Bld) [Mass/Vol] 9.4 g/dL Low 13.0-17.0 [facility] Comment on above: Order Comment: Speci men Type: BLOOD SPECIMENOrdering Facility: [facility] Address: [address] [place] [address] Performed By: #### 5 7021-8 ####[facility]ORATORYCLIA [id number] [address] IMMATURE GRAN % 0.5 % Normal [facility] Comment on above: Order Comment: Speci men Type: BLOOD SPECIMENOrdering Facility: [facility] Address: [address] [place] [address] Performed By: #### 5 7021-8 ####[facility] LABORATORYCLIA [id number] [address] IMMATURE GRAN ABS 0.06 k/uL Normal <0.10 [facility] Comment on above: Order Comment: Speci men Type: BLOOD SPECIMENOrdering Facility: [facility] Address: [address] [place] [address] Performed By: #### 5 7021-8 ####[facility] LABORATORYCLIA [id number] [address] Lymphocytes (Bld) [#/Vol] 1.68 10*3/uL Normal 1.00-4.00 [facility] Comment on above: Order Comment: Speci men Type: BLOOD SPECIMENOrdering Facility: [facility] Address: [address] [place] [address] Performed By: #### 5 7021-8 ####[facility] LABORATORYCLIA [id number] [address] Lymphocytes/100 WBC (Bld) 15.3 % Normal [facility] Comment on above: Order Comment: Speci men Type: BLOOD SPECIMENOrdering Facility: [facility] Address: [address] [place] [address] Performed By: #### 5 7021-8 ####[facility]ORATORYCLIA [id number] [address] [place] MCH (RBC) [Entitic mass] 28.0 pg Normal 26.0-34.0 [facility] Comment on above: Order Comment: Speci men Type: BLOOD SPECIMENOrdering Facility: [facility] Address: [address] [place] [address] Performed By: #### 5 7021-8 ####[facility] LABORATORYCLIA [id number] [address] MCHC (RBC) [Mass/Vol] 30.5 g/dL Normal 30.5-36.0 [facility] Comment on above: Order Comment: Speci men Type: BLOOD SPECIMENOrdering Facility: [facility] Address: [address] [place] [address] Performed By: #### 5 7021-8 ####[facility] LABORATORYCLIA [id number] [address] MCV (RBC) [Entitic vol] 91.7 fL Normal 80.0-100.0 [facility] Comment on above: Order Comment: Speci men Type: BLOOD SPECIMENOrdering Facility: [facility] Address: [address] [place] [address] Performed By: #### 5 7021-8 ####[facility] LABORATORYCLIA [id number] [address] Monocytes (Bld) [#/Vol] 0.53 10*3/uL Normal <0.87 [facility] Comment on above: Order Comment: Speci men Type: BLOOD SPECIMENOrdering Facility: [facility] Address: [address] [place] [address] Performed By: #### 5 7021-8 ####[facility] LABORATORYCLIA [id number] [address] Monocytes/100 WBC (Bld) 4.8 % Normal [facility] Comment on above: Order Comment: Speci men Type: BLOOD SPECIMENOrdering Facility: [facility] Address: [address] [place] [address] Performed By: #### 5 7021-8 ####[facility] LABORATORYCLIA [id number] [place] [address] [place] Neutrophils (Bld) [#/Vol] 8.39 10*3/uL High 1.45-7.50 [facility] Comment on above: Order Comment: Speci men Type: BLOOD SPECIMENOrdering Facility: [facility] Address: [address] [place] [address] Performed By: #### 5 7021-8 ####[facility] LABORATORYCLIA [id number] [address] [place] Neutrophils/100 WBC (Bld) 76.3 % Normal [facility] Comment on above: Order Comment: Speci men Type: BLOOD SPECIMENOrdering Facility: [facility] Address: [address] [place] [address] Performed By: #### 5 7021-8 ####[facility] LABORATORYCLIA [id number] [address] [place] Nucleated RBC (Bld) [#/Vol] 10*3/uL Normal <0.01 [facility] Comment on above: Order Comment: Speci men Type: BLOOD SPECIMENOrdering Facility: [facility] Address: [address] [place] [address] Performed By: #### 5 7021-8 ####[facility] LABORATORYCLIA [id number] [address] [place] Nucleated RBC/100 WBC (Bld) [Ratio] 0.0 /100 WBC Normal [facility] Comment on above: Order Comment: Speci men Type: BLOOD SPECIMENOrdering Facility: [facility] Address: [address] [place] [address] Performed By: #### 5 7021-8 ####[facility] LABORATORYCLIA [id number] [address] [place] Platelet mean volume (Bld) [Entitic vol] 10.9 fL Normal 9.0-12.7 [facility] Comment on above: Order Comment: Speci men Type: BLOOD SPECIMENOrdering Facility: [facility] Address: [address] [place] [address] Performed By: #### 5 7021-8 ####[facility] LABORATORYCLIA [id number] [address] Platelets (Bld) [#/Vol] 287 10*3/uL Normal 150-400 [facility] Comment on above: Order Comment: Speci men Type: BLOOD SPECIMENOrdering Facility: [facility] Address: [address] [place] [address] Performed By: #### 5 7021-8 ####[facility] LABORATORYCLIA [id number] [address] OF [facility] RBC (Bld) [#/Vol] 3.36 10*6/uL Low 4.20-6.00 [facility] Comment on above: Order Comment: Speci men Type: BLOOD SPECIMENOrdering Facility: [facility] Address: [address] [place] [address] Performed By: #### 5 7021-8 ####[facility] LABORATORYCLIA [id number] [address] WBC (Bld) [#/Vol] 11.00 10*3/uL Normal 3.70-11.00 [facility] Comment on above: Order Comment: Speci men Type: BLOOD SPECIMENOrdering Facility: [facility] Address: [address] [place] [address] Performed By: #### 5 7021-8 ####[facility] LABORATORYCLIA [id number] [address] CSF MANUAL DIFFon 07-30-2021 DIF TTL, CSF 100 cells counted Normal [facility] Comment on above: Order Comment: Speci men Type: CEREBROSPINAL FLUIDOrdering Facility: [facility] Address: [address] [place] [address] Performed By: #### L [id number], [id number], 07297-2 ####[facility] LABORATORYCLIA [id number] [address] EOSIN%, CSF 0 % Normal [facility] Comment on above: Order Comment: Speci men Type: CEREBROSPINAL FLUIDOrdering Facility: [facility] Address: [address] [address] Performed By: #### L [id number], YPB6337, 50511-8 ####[facility] LABORATORYCLIA [id number] [place] [address] [place] LYMPH%, CSF 75 % Normal 50-90 [facility] Comment on above: Order Comment: Speci men Type: CEREBROSPINAL FLUIDOrdering Facility: [facility] Address: [address] [place] [address] Performed By: #### L [id number], CDW5894, 48445-2 ####[facility] LABORATORYCLIA [id number] [place] [address] [place] MACRO%, CSF 9 % High <1 [facility] Comment on above: Order Comment: Speci men Type: CEREBROSPINAL FLUIDOrdering Facility: [facility] Address: [address] [place] [address] Performed By: #### L [id number], KNB5858, 53151-9 ####[facility] LABORATORYCLIA [id number] [place] [address] [place] MONO%, CSF 10 % Normal 10-50 [facility] Comment on above: Order Comment: Speci men Type: CEREBROSPINAL FLUIDOrdering Facility: [facility] Address: [address] [place] [address] Performed By: #### L [id number], [id number], 84726-5 ####[facility] LABORATORYCLIA [id number] [address] [place] OTHER CL%, CSF 4 % Normal [facility] Comment on above: Order Comment: Speci men Type: CEREBROSPINAL FLUIDOrdering Facility: [facility] Address: [address] [place] [address] Result Comment: Path review to follow. Performed By: #### L [id number], KDV3571, 03248-8 ####[facility] LABORATORYCLIA [id number] [address] [place] REAC LYMPH %, CSF 2 % Normal [facility] Comment on above: Order Comment: Speci men Type: CEREBROSPINAL FLUIDOrdering Facility: [facility] Address: [address] [place] [address] Performed By: #### L [id number], CDY0141, 80937-8 ####[facility] LABORATORYCLIA [id number] [address] [place] CSF PATHOLOGIST INTERP (LAB REFLEX ORDER-NO BILL)on 07-30-2021 CSF STAFF REVIEW Negative Normal [facility] Comment on above: Order Comment: Speci men Type: CEREBROSPINAL FLUIDOrdering Facility: [facility] Address: [address] [place] [address] Performed By: #### L EK1809, AJB2577, 08982-7 ####[facility] LABORATORYCLIA [id number] [address] Pathologist name Reviewed by Eloise rebolledo MD Normal [facility] Comment on above: Order Comment: Speci men Type: CEREBROSPINAL FLUIDOrdering Facility: [facility] Address: [address] [place] [address] Performed By: #### L [id number], UGV0653, 36778-2 ####[facility] LABORATORYCLIA [id number] [address] [place] CT BRAIN WO IVCONon 07-31-[address] BRAIN WO IVCON Normal [facility] Cell count panel (CSF)on Clarity (CSF) Clear Normal Clear [facility] Comment on above: Order Comment: Speci men Type: CEREBROSPINAL FLUIDOrdering Facility: [facility] Address: [address] [place] [address] Performed By: #### L [id number], IJC8095, 49976-3 ####[facility] LABORATORYCLIA [id number] [address] [place] Clarity (Unsp spec) Clear Normal Clear [facility] Comment on above: Order Comment: Speci men Type: CEREBROSPINAL FLUIDOrdering Facility: [facility] Address: [address] [address] Performed By: #### L [id number], RQT1854, 05989-6 ####[facility] LABORATORYCLIA [id number] [address] Color (CSF) Colorless Normal Colorless [facility] Comment on above: Order Comment: Speci men Type: CEREBROSPINAL FLUIDOrdering Facility: [facility] Address: [address] [place] [address] Performed By: #### L SF6400, CJD4969, 45260-8 ####[facility] LABORATORYCLIA [id number] [address] Color (Spun CSF) Colorless Normal Colorless [facility] Comment on above: Order Comment: Speci men Type: CEREBROSPINAL FLUIDOrdering Facility: [facility] Address: [address] [place] [address] Performed By: #### L [id number], UHS2848, 02154-9 ####[facility] LABORATORYCLIA [id number] [address] CSF TUBE NUMBER [employer] Normal [facility] Comment on above: Order Comment: Speci men Type: CEREBROSPINAL FLUIDOrdering Facility: [facility] Address: [address] [place] [address] Performed By: #### L RX2304, PMF4465, 92804-8 ####[facility] LABORATORYCLIA [id number] [address] RBC Manual cnt (CSF) [#/Vol] 9 cells/uL High 0-5 [facility] Comment on above: Order Comment: Speci men Type: CEREBROSPINAL FLUIDOrdering Facility: [facility] Address: [address] [place] [address] Performed By: #### L RB9730, WBC2211, 49977-6 ####[facility] LABORATORYCLIA [id number] [address] WBC Manual cnt (CSF) [#/Vol] 8 cells/uL High 0-5 [facility] Comment on above: Order Comment: Speci men Type: CEREBROSPINAL FLUIDOrdering Facility: [facility] Address: [address] [place] [address] Performed By: #### L IE6022, YDQ1794, 10257-8 ####[facility] LABORATORYCLIA [id number] [address] Glucose CSF-ncon Glucose (CSF) [Mass/Vol] 65 mg/dL Normal 40-70 [facility] Comment on above: Order Comment: Speci men Type: CEREBROSPINAL FLUIDOrdering Facility: [facility] Address: [address] [place] [address] Result Comment: Lumb ar CSF glucose values of healthy patients are approximately 60% of the plasma values and must always be compared with a concurrently measured plasma value for adequate clinical interpretation.References: 1. Glucose HK (GLUC3) [package insert V 12.0 [place]ian]. [employer], [place], [place]. September 2015. 2. Michelle Moore, Loki, H. (2015). Chapter 7: Glucose and Lactate. Marianela Alcocer al.(eds.), Cerebrospinal Fluid in Clinical Neurology. [place]: [employer]. Performed By: #### 2 342-4, 2880-3 ####[facility] LABORATORYCLIA [id number] [address] OF [facility] Magnesium SerPl-[facility] 07-30 Magnesium [Mass/Vol] 2.5 mg/dL High 1.7-2.3 [facility] Comment on above: Order Comment: Speci men Type: BLOOD SPECIMENOrdering Facility: [facility] Address: [address] [place] [address] Performed By: #### 2 777-1, 17775-9, 12355-9 ####[facility] LABORATORYCLIA [id number] [address] [place] NURSING PROGon 07-30-2021 NURSING PROG Normal [facility] Phosphate SerPl-mCncon 07-30 Phosphate [Mass/Vol] 2.4 mg/dL Low 2.7-4.8 [facility] Comment on above: Order Comment: Speci men Type: BLOOD SPECIMENOrdering Facility: [facility] Address: [address] [place] [address] Performed By: #### 2 777-1, 58553-0, 74232-9 ####[facility] LABORATORYCLIA [id number] [place] [address] [place] Prot CSF-mCncon 07-30-2021 Protein (CSF) [Mass/Vol] 50 mg/dL High 15-45 [facility] Comment on above: Order Comment: Speci men Type: CEREBROSPINAL FLUIDOrdering Facility: [facility] Address: [address] [place] [address] Performed By: #### 2 342-4, 2880-3 ####[facility]OSPITALCLIA [id number] [place] [address] [place] aPTT PPPon 07-30-2021 aPTT Coag (PPP) [Time] 64.1 s High 23.0-32.4 [facility] Comment on above: Order Comment: Speci men Type: BLOOD SPECIMENOrdering Facility: [facility] Address: [address] [place] [address] Performed By: #### 1 4979-9 ####[facility] LABORATORYCLIA [id number] [address] [place] Bacteria CSF Culton 07-30-19 22 Bacteria identified Cx Nom (CSF) CULTURE, CSF: No growth 14 days GRAM STAIN: No cells or organisms seen Gram stain performed on cytospun specimen. Gram stain confirmed by microbiology Normal [facility] Comment on above: Performed By: #### 6 06-4 ####[facility] LABORATORYCLIA [id number] [place] [address] [place] CASE MANAGEMon 07-29-2021 CASE MANAGEM Normal [facility] CBC W Auto Differential pane l (Bld)on 07-29-2021 Basophils (Bld) [#/Vol] 0.03 10*3/uL Normal <0.11 [facility] Comment on above: Order Comment: Speci men Type: BLOOD SPECIMENOrdering Facility: [facility] Address: [address] [address] Performed By: #### 5 7021-8 ####[facility] LABORATORYCLIA [id number] [place] [address] [place] Basophils/100 WBC (Bld) 0.3 % Normal [facility] Comment on above: Order Comment: Speci men Type: BLOOD SPECIMENOrdering Facility: [facility] Address: [address] [place] [address] Performed By: #### 5 7021-8 ####[facility] LABORATORYCLIA [id number] [address] STATES OF [facility] Differential cell count method Nom (Bld) Auto Normal [facility] Comment on above: Order Comment: Speci men Type: BLOOD SPECIMENOrdering Facility: [facility] Address: [address] [place] [address] Performed By: #### 5 7021-8 ####[facility] LABORATORYCLIA [id number] [place] [address] [place] Eosinophils (Bld) [#/Vol] 0.40 10*3/uL Normal <0.46 [facility] Comment on above: Order Comment: Speci men Type: BLOOD SPECIMENOrdering Facility: [facility] Address: [address] [address] Performed By: #### 5 7021-8 ####[facility] LABORATORYCLIA [id number] [address] [place] Eosinophils/100 WBC (Bld) 3.9 % Normal [facility] Comment on above: Order Comment: Speci men Type: BLOOD SPECIMENOrdering Facility: [facility] Address: [address] [place] [address] Performed By: #### 5 7021-8 ####[facility] LABORATORYCLIA [id number] [address] Erythrocyte distribution width (RBC) [Ratio] 17.1 % High 11.5-15.0 [facility] Comment on above: Order Comment: Speci men Type: BLOOD SPECIMENOrdering Facility: [facility] Address: [address] [place] [address] Performed By: #### 5 7021-8 ####[facility] LABORATORYCLIA [id number] [address] OF [facility] Hematocrit (Bld) [Volume fraction] 32.0 % Low 39.0-51.0 [facility] Comment on above: Order Comment: Speci men Type: BLOOD SPECIMENOrdering Facility: [facility] Address: [address] [place] [address] Performed By: #### 5 7021-8 ####[facility] LABORATORYCLIA [id number] [address] Hemoglobin (Bld) [Mass/Vol] 9.7 g/dL Low 13.0-17.0 [facility] Comment on above: Order Comment: Speci men Type: BLOOD SPECIMENOrdering Facility: [facility] Address: [address] [place] [address] Performed By: #### 5 7021-8 ####[facility] LABORATORYCLIA [id number] [address] IMMATURE GRAN % 0.6 % Normal [facility] Comment on above: Order Comment: Speci men Type: BLOOD SPECIMENOrdering Facility: [facility] Address: [address] [place] [address] Performed By: #### 5 7021-8 ####[facility] LABORATORYCLIA [id number] [address] IMMATURE GRAN ABS 0.06 k/uL Normal <0.10 [facility] Comment on above: Order Comment: Speci men Type: BLOOD SPECIMENOrdering Facility: [facility] Address: [address] [address] Performed By: #### 5 7021-8 ####[facility] LABORATORYCLIA [id number] [address] [place] Lymphocytes (Bld) [#/Vol] 1.96 10*3/uL Normal 1.00-4.00 [facility] Comment on above: Order Comment: Speci men Type: BLOOD SPECIMENOrdering Facility: [facility] Address: [address] [place] [address] Performed By: #### 5 7021-8 ####[facility] LABORATORYCLIA [id number] [address] Lymphocytes/100 WBC (Bld) 19.0 % Normal [facility] Comment on above: Order Comment: Speci men Type: BLOOD SPECIMENOrdering Facility: [facility] Address: [address] [place] [address] Performed By: #### 5 7021-8 ####[facility] LABORATORYCLIA [id number] [address] STATES OF [facility] MCH (RBC) [Entitic mass] 28.0 pg Normal 26.0-34.0 [facility] Comment on above: Order Comment: Speci men Type: BLOOD SPECIMENOrdering Facility: [facility] Address: [address] [place] [address] Performed By: #### 5 7021-8 ####[facility] LABORATORYCLIA [id number] [address] [place] MCHC (RBC) [Mass/Vol] 30.3 g/dL Low 30.5-36.0 [facility] Comment on above: Order Comment: Speci men Type: BLOOD SPECIMENOrdering Facility: [facility] Address: [address] [place] [address] Performed By: #### 5 7021-8 ####[facility] LABORATORYCLIA [id number] [address] [place] MCV (RBC) [Entitic vol] 92.5 fL Normal 80.0-100.0 [facility] Comment on above: Order Comment: Speci men Type: BLOOD SPECIMENOrdering Facility: [facility] Address: [address] [place] [address] Performed By: #### 5 7021-8 ####[facility] LABORATORYCLIA [id number] [place] [address] [place] Monocytes (Bld) [#/Vol] 0.53 10*3/uL Normal <0.87 [facility] Comment on above: Order Comment: Speci men Type: BLOOD SPECIMENOrdering Facility: [facility] Address: [address] [place] [address] Performed By: #### 5 7021-8 ####[facility] LABORATORYCLIA [id number] [place] [address] [place] Monocytes/100 WBC (Bld) 5.2 % Normal [facility] Comment on above: Order Comment: Speci men Type: BLOOD SPECIMENOrdering Facility: [facility] Address: [address] [place] [address] Performed By: #### 5 7021-8 ####[facility]ORATORYCLIA [id number] [place] [address] [place] Neutrophils (Bld) [#/Vol] 7.31 10*3/uL Normal 1.45-7.50 [facility] Comment on above: Order Comment: Speci men Type: BLOOD SPECIMENOrdering Facility: [facility] Address: [address] [place] [address] Performed By: #### 5 7021-8 ####[facility] LABORATORYCLIA [id number] [place] [address] [place] Neutrophils/100 WBC (Bld) 71.0 % Normal [facility] Comment on above: Order Comment: Speci men Type: BLOOD SPECIMENOrdering Facility: [facility] Address: [address] [place] [address] Performed By: #### 5 7021-8 ####[facility] LABORATORYCLIA [id number] [address] [place] Nucleated RBC (Bld) [#/Vol] 10*3/uL Normal <0.01 [facility] Comment on above: Order Comment: Speci men Type: BLOOD SPECIMENOrdering Facility: [facility] Address: [address] [place] [address] Performed By: #### 5 7021-8 ####[facility] LABORATORYCLIA [id number] [address] [place] Nucleated RBC/100 WBC (Bld) [Ratio] 0.0 /100 WBC Normal [facility] Comment on above: Order Comment: Speci men Type: BLOOD SPECIMENOrdering Facility: [facility] Address: [address] [place] [address] Performed By: #### 5 7021-8 ####[facility] LABORATORYCLIA [id number] [address] [place] Platelet mean volume (Bld) [Entitic vol] 11.2 fL Normal 9.0-12.7 [facility] Comment on above: Order Comment: Speci men Type: BLOOD SPECIMENOrdering Facility: [facility] Address: [address] [place] [address] Performed By: #### 5 7021-8 ####[facility] LABORATORYCLIA [id number] [address] [place] Platelets (Bld) [#/Vol] 276 10*3/uL Normal 150-400 [facility] Comment on above: Order Comment: Speci men Type: BLOOD SPECIMENOrdering Facility: [facility] Address: [address] [place] [address] Performed By: #### 5 7021-8 ####[facility] LABORATORYCLIA [id number] [address] [place] RBC (Bld) [#/Vol] 3.46 10*6/uL Low 4.20-6.00 [facility] Comment on above: Order Comment: Speci men Type: BLOOD SPECIMENOrdering Facility: [facility] Address: [facility] [place] [address] Performed By: #### 5 7021-8 ####[facility] LABORATORYCLIA [id number] [place] [address] [place] [facility] WBC (Bld) [#/Vol] 10.29 10*3/uL Normal 3.70-11.00 [facility] Comment on above: Order Comment: Speci men Type: BLOOD SPECIMENOrdering Facility: [facility] Address: [address] [place] [address] Performed By: #### 5 7021-8 ####[facility] LABORATORYCLIA [id number] [address] OF [facility] NURSING PROGon 07-29-2021 NURSING PROG Normal [facility] THERAPY NTon 07-29-2021 THERAPY NT Normal [facility] aPTT PPPon 07-29-2021 aPTT Coag (PPP) [Time] 59.2 s High 23.0-32.4 [facility] Comment on above: Order Comment: Speci men Type: BLOOD SPECIMENOrdering Facility: [facility] Address: [address] [place] [address] Performed By: #### 1 4979-9 ####[facility] LABORATORYCLIA [id number] [address] [place] ALLIED HEALTHon 07-28-2021 ALLIED HEALTH Normal [facility] Basic metabolic 2000 panelon 07-28-2021 Anion gap [Moles/Vol] 7 mmol/L Low 9-18 [facility] Comment on above: Order Comment: Speci men Type: BLOOD SPECIMENOrdering Facility: [facility] Address: [address] [place] [address] Performed By: #### 1 4338-8, 82502-8, 2777-1, 88008-8 ####[facility] LABORATORYCLIA [id number] [address] [place] Calcium [Mass/Vol] 9.0 mg/dL Normal 8.5-10.2 [facility] Comment on above: Order Comment: Speci men Type: BLOOD SPECIMENOrdering Facility: [facility] Address: [address] [place] [address] Performed By: #### 1 4338-8, 21774-5, 277-, 55427-7 ####[facility] LABORATORYCLIA [id number] [place] [address] [place] Chloride [Moles/Vol] 94 mmol/L Low 97-105 [facility] Comment on above: Order Comment: Speci men Type: BLOOD SPECIMENOrdering Facility: [facility] Address: [address] [place] [address] Performed By: #### 1 4338-8, 79934-5, 27711-04, 67530-6 ####[facility]ITALCLIA [id number] [place] [address] [place] CO2 [Moles/Vol] 31 mmol/L High 22-30 [facility] Comment on above: Order Comment: Speci men Type: BLOOD SPECIMENOrdering Facility: [facility] Address: [address] [place] [address] Performed By: #### 1 4338-8, , 2776-05, 78167-7 ####[facility] LABORATORYCLIA [id number] [address] [place] Creatinine [Mass/Vol] 0.75 mg/dL Normal 0.73-1.22 [facility] Comment on above: Order Comment: Speci men Type: BLOOD SPECIMENOrdering Facility: [facility] Address: [address] [place] [address] Performed By: #### 1 4338-8, 95781-1, 2776-05, 24658-8 ####[facility] LABORATORYCLIA [id number] [address] STATES OF [facility] ESTIMATED GLOMERULAR FILTRATION RATE 98 mL/min/1.73m??? Normal >=60 [facility] Comment on above: Order Comment: Speci men Type: BLOOD SPECIMENOrdering Facility: [facility] Address: [address] [place] [address] Result Comment: Luzmaria mated Glomerular Filtration Rate [...] actual GFR. Performed By: #### 1 4338-8, 20969-3, 2777-1, 14621-5 ####[facility]ITALCLIA [id number] [place] [id number] [place] Glucose [Mass/Vol] 122 mg/dL High 74-99 [facility] Comment on above: Order Comment: Shira feldman Type: BLOOD SPECIMENOrdering Facility: [facility] Address: [address] [place], [place] [id number] Result Comment: The [place] [employer] (ADA) provides guidance for cutoff [...] Standards of Medical Care in Diabetes 2016, [place] [employer]. Diabetes Care. 2016.39(Suppl 1). Performed By: #### 1 4338-8, 95655-1, 2777-1, 68448-2 ####[facility] LABORATORYCLIA [id number] [place] [id number] [place] Potassium [Moles/Vol] 4.0 mmol/L Normal 3.7-5.1 [facility] Comment on above: Order Comment: Shira feldman Type: BLOOD SPECIMENOrdering Facility: [facility] Address: [address] [place] [address] Performed By: #### 1 4338-8, 14494-5, 2777-1, 01207-7 ####[facility]ORATORYCLIA [id number] [address] STATES [facility] Sodium [Moles/Vol] 132 mmol/L Low 136-144 [facility] Comment on above: Order Comment: Speci men Type: BLOOD SPECIMENOrdering Facility: [facility] Address: [address] [place] [address] Performed By: #### 1 4338-8, 49049-5, 2777-1, 41349-0 ####[facility]ORATORYCLIA [id number] [address] [place] Urea nitrogen [Mass/Vol] 34 mg/dL High 01-28 [facility] Comment on above: Order Comment: Speci men Type: BLOOD SPECIMENOrdering Facility: [facility] Address: [address] [place] [address] Performed By: #### 1 4338-8, 91911-8, 2777-1, 36777-5 ####[facility]ATORYCLIA [id number] [address] CBC W Auto Differential pane l (Bld)on 07-28-2021 Basophils (Bld) [#/Vol] 0.04 10*3/uL Normal <0.11 [facility] Comment on above: Order Comment: Speci men Type: BLOOD SPECIMENOrdering Facility: [facility] Address: [address] [place] [address] Performed By: #### 5 7021-8 ####[facility] LABORATORYCLIA [id number] [address] STATES [facility] Basophils/100 WBC (Bld) 0.5 % Normal [facility] Comment on above: Order Comment: Speci men Type: BLOOD SPECIMENOrdering Facility: [facility] Address: [address] [place] [address] Performed By: #### 5 7021-8 ####[facility]ORATORYCLIA [id number] [address] Differential cell count method Nom (Bld) Auto Normal [facility] Comment on above: Order Comment: Speci men Type: BLOOD SPECIMENOrdering Facility: [facility] Address: [address] [place] [address] Performed By: #### 5 7021-8 ####[facility]ORATORYCLIA [id number] [address] [place] Eosinophils (Bld) [#/Vol] 0.30 10*3/uL Normal <0.46 [facility] Comment on above: Order Comment: Speci men Type: BLOOD SPECIMENOrdering Facility: [facility] Address: [address] [place] [address] Performed By: #### 5 7021-8 ####[facility]ORATORYCLIA [id number] [address] Eosinophils/100 WBC (Bld) 3.4 % Normal [facility] Comment on above: Order Comment: Speci men Type: BLOOD SPECIMENOrdering Facility: [facility] Address: [address] [place] [address] Performed By: #### 5 7021-8 ####[facility]ORATORYCLIA [id number] [address] Erythrocyte distribution width (RBC) [Ratio] 16.9 % High 11.5-15.0 [facility] Comment on above: Order Comment: Speci men Type: BLOOD SPECIMENOrdering Facility: [facility] Address: [address] [place] [address] Performed By: #### 5 7021-8 ####[facility]ORATORYCLIA [id number] [address] Hematocrit (Bld) [Volume fraction] 30.3 % Low 39.0-51.0 [facility] Comment on above: Order Comment: Speci men Type: BLOOD SPECIMENOrdering Facility: [facility] Address: [address] [place] [address] Performed By: #### 5 7021-8 ####[facility] LABORATORYCLIA [id number] [address] STATES OF [facility] Hemoglobin (Bld) [Mass/Vol] 9.2 g/dL Low 13.0-17.0 [facility] Comment on above: Order Comment: Speci men Type: BLOOD SPECIMENOrdering Facility: [facility] Address: [address] [place] [address] Performed By: #### 5 7021-8 ####[facility]ORATORYCLIA [id number] [address] IMMATURE GRAN % 0.6 % Normal [facility] Comment on above: Order Comment: Speci men Type: BLOOD SPECIMENOrdering Facility: [facility] Address: [address] [place] [address] Performed By: #### 5 7021-8 ####[facility]ORATORYCLIA [id number] [address] IMMATURE GRAN ABS 0.05 k/uL Normal <0.10 [facility] Comment on above: Order Comment: Speci men Type: BLOOD SPECIMENOrdering Facility: [facility] Address: [address] [place] [address] Performed By: #### 5 7021-8 ####[facility] LABORATORYCLIA [id number] [address] [place] Lymphocytes (Bld) [#/Vol] 1.68 10*3/uL Normal 1.00-4.00 [facility] Comment on above: Order Comment: Speci men Type: BLOOD SPECIMENOrdering Facility: [facility] Address: [address] [place] [address] Performed By: #### 5 7021-8 ####[facility]ORATORYCLIA [id number] [address] Lymphocytes/100 WBC (Bld) 19.2 % Normal [facility] Comment on above: Order Comment: Speci men Type: BLOOD SPECIMENOrdering Facility: [facility] Address: [address] [place] [address] Performed By: #### 5 7021-8 ####[facility]ORATORYCLIA [id number] [address] MCH (RBC) [Entitic mass] 28.4 pg Normal 26.0-34.0 [facility] Comment on above: Order Comment: Speci men Type: BLOOD SPECIMENOrdering Facility: [facility] Address: [address] [place] [address] Performed By: #### 5 7021-8 ####[facility]ORATORYCLIA [id number] [address] MCHC (RBC) [Mass/Vol] 30.4 g/dL Low 30.5-36.0 [facility] Comment on above: Order Comment: Speci men Type: BLOOD SPECIMENOrdering Facility: [facility] Address: [address] [place] [address] Performed By: #### 5 7021-8 ####[facility] LABORATORYCLIA [id number] [address] MCV (RBC) [Entitic vol] 93.5 fL Normal 80.0-100.0 [facility] Comment on above: Order Comment: Speci men Type: BLOOD SPECIMENOrdering Facility: [facility] Address: [address] [place] [address] Performed By: #### 5 7021-8 ####[facility]ORATORYCLIA [id number] [address] Monocytes (Bld) [#/Vol] 0.58 10*3/uL Normal <0.87 [facility] Comment on above: Order Comment: Speci men Type: BLOOD SPECIMENOrdering Facility: [facility] Address: [address] [place] [address] Performed By: #### 5 7021-8 ####[facility]ORATORYCLIA [id number] [address] Monocytes/100 WBC (Bld) 6.6 % Normal [facility] Comment on above: Order Comment: Speci men Type: BLOOD SPECIMENOrdering Facility: [facility] Address: [address] [place] [address] Performed By: #### 5 7021-8 ####[facility]ORATORYCLIA [id number] [place] [address] [place] Neutrophils (Bld) [#/Vol] 6.11 10*3/uL Normal 1.45-7.50 [facility] Comment on above: Order Comment: Speci men Type: BLOOD SPECIMENOrdering Facility: [facility] Address: [address] [place] [address] Performed By: #### 5 7021-8 ####[facility]ORATORYCLIA [id number] [address] [place] Neutrophils/100 WBC (Bld) 69.7 % Normal [facility] Comment on above: Order Comment: Speci men Type: BLOOD SPECIMENOrdering Facility: [facility] Address: [address] [place] [address] Performed By: #### 5 7021-8 ####[facility]ORATORYCLIA [id number] [address] [place] Nucleated RBC (Bld) [#/Vol] 10*3/uL Normal <0.01 [facility] Comment on above: Order Comment: Speci men Type: BLOOD SPECIMENOrdering Facility: [facility] Address: [address] [place] [address] Performed By: #### 5 7021-8 ####[facility] LABORATORYCLIA [id number] [address] [place] Nucleated RBC/100 WBC (Bld) [Ratio] 0.0 /100 WBC Normal [facility] Comment on above: Order Comment: Speci men Type: BLOOD SPECIMENOrdering Facility: [facility] Address: [address] [place] [address] Performed By: #### 5 7021-8 ####[facility]ORATORYCLIA [id number] [address] [place] Platelet mean volume (Bld) [Entitic vol] 11.3 fL Normal 9.0-12.7 [facility] Comment on above: Order Comment: Speci men Type: BLOOD SPECIMENOrdering Facility: [facility] Address: [address] [place] [address] Performed By: #### 5 7021-8 ####[facility]ORATORYCLIA [id number] [place] [address] [place] Platelets (Bld) [#/Vol] 238 10*3/uL Normal 150-400 [facility] Comment on above: Order Comment: Speci men Type: BLOOD SPECIMENOrdering Facility: [facility] Address: [address] [place] [address] Performed By: #### 5 7021-8 ####[facility]ORATORYCLIA [id number] [place] [address] [place] RBC (Bld) [#/Vol] 3.24 10*6/uL Low 4.20-6.00 [facility] Comment on above: Order Comment: Speci men Type: BLOOD SPECIMENOrdering Facility: [facility] Address: [address] [place] [address] Performed By: #### 5 7021-8 ####[facility]ORATORYCLIA [id number] [place] [address] [place] WBC (Bld) [#/Vol] 8.76 10*3/uL Normal 3.70-11.00 [facility] Comment on above: Order Comment: Speci men Type: BLOOD SPECIMENOrdering Facility: [facility] Address: [address] [place] [address] Performed By: #### 5 7021-8 ####[facility]ORATORYCLIA [id number] [address] [place] MRI BRAIN WO/W IVCONon 07-28 MRI BRAIN WO/W IVCON Normal [facility] Magnesium SerPl-mCncon 07-28 Magnesium [Mass/Vol] 2.5 mg/dL High 1.7-2.3 [facility] Comment on above: Order Comment: Speci men Type: BLOOD SPECIMENOrdering Facility: [facility] Address: [address] [place] [address] Performed By: #### 1 4338-8, 75395-7, 2777-1, 43299-5 ####[facility]ORATORYCLIA [id number] [address] STATES OF [facility] NURSING PROGon 07-28-2021 NURSING PROG Normal [facility] NURSING PROG Normal [facility] Phosphate SerPl-mCncon 07-28 Phosphate [Mass/Vol] 2.8 mg/dL Normal 2.7-4.8 [facility] Comment on above: Order Comment: Speci men Type: BLOOD SPECIMENOrdering Facility: [facility] Address: [address] [place] [address] Performed By: #### 1 4338-8, 62159-6, 2777-1, 99874-5 ####[facility]ORATORYCLIA [id number] [address] [place] Prealbumin [Mass/Vol]on 07-06 Prealbumin Nephelometry [Mass/Vol] 25 mg/dL Normal 17-36 [facility] Comment on above: Order Comment: Speci men Type: BLOOD SPECIMENOrdering Facility: [facility] Address: [address] [place] [address] Performed By: #### 1 4338-8, 35252-3, 2777-1, 28724-3 ####[facility]ORATORYCLIA [id number] [address] [place] aPTT PPPon 07-28-2021 aPTT Coag (PPP) [Time] 53.0 s High 23.0-32.4 [facility] Comment on above: Order Comment: Speci men Type: BLOOD SPECIMENOrdering Facility: [facility] Address: [address] [place] [address] Performed By: #### 1 4979-9 ####[facility]ORATORYCLIA [id number] [address] [place] aPTT Coag (PPP) [Time] 57.2 s High 23.0-32.4 [facility] Comment on above: Order Comment: Speci men Type: BLOOD SPECIMENOrdering Facility: [facility] Address: [address] [place] [address] Performed By: #### 1 4979-9 ####[facility] LABORATORYCLIA [id number] [address] [place] Bacteria CSF Culton 07-28-19 22 Bacteria identified Cx Nom (CSF) CULTURE, CSF: No growth 14 days GRAM STAIN: No organisms seen Rare Polymorphonuclear leukocytes Rare Red Blood Cells Gram stain performed on cytospun specimen. Normal [facility] Comment on above: Performed By: #### 6 06-4 ####[facility]ORATORYCLIA [id number] [address] [place] Bacteria Spec Resp Culton Bacteria identified Respiratory culture Nom (Unsp spec) CULTURE, RESPIRATORY: Rare Normal respiratory chris present GRAM STAIN: No organisms seen Rare Polymorphonuclear leukocytes Rare Epithelial cells Normal [facility] Comment on above: Performed By: #### 3 2355-0 ####[facility]ORATORYCLIA [id number] [address] [place] CASE MANAGEMon 07-27-2021 CASE MANAGEM Normal [facility] CBC W Auto Differential pane l (Bld)on 07-27-2021 Basophils (Bld) [#/Vol] 0.04 10*3/uL Normal <0.11 [facility] Comment on above: Order Comment: Speci men Type: BLOOD SPECIMENOrdering Facility: [facility] Address: [address] [place] [id number] Performed By: #### 5 7021-8 ####[facility]ORATORYCLIA [id number] [address] [place] Basophils/100 WBC (Bld) 0.4 % Normal [facility] Comment on above: Order Comment: Speci men Type: BLOOD SPECIMENOrdering Facility: [facility] Address: [address] [place] [address] Performed By: #### 5 7021-8 ####[facility]ORATORYCLIA [id number] [address] Differential cell count method Nom (Bld) Auto Normal [facility] Comment on above: Order Comment: Speci men Type: BLOOD SPECIMENOrdering Facility: [facility] Address: [address] [place] [address] Performed By: #### 5 7021-8 ####[facility]ORATORYCLIA [id number] [address] [place] Eosinophils (Bld) [#/Vol] 0.50 10*3/uL High <0.46 [facility] Comment on above: Order Comment: Speci men Type: BLOOD SPECIMENOrdering Facility: [facility] Address: [address] [place] [address] Performed By: #### 5 7021-8 ####[facility]ORATORYCLIA [id number] [address] Eosinophils/100 WBC (Bld) 5.2 % Normal [facility] Comment on above: Order Comment: Speci men Type: BLOOD SPECIMENOrdering Facility: [facility] Address: [address] [place] [address] Performed By: #### 5 7021-8 ####[facility]ORATORYCLIA [id number] [address] [place] Erythrocyte distribution width (RBC) [Ratio] 16.8 % High 11.5-15.0 [facility] Comment on above: Order Comment: Speci men Type: BLOOD SPECIMENOrdering Facility: [facility] Address: [address] [place] [address] Performed By: #### 5 7021-8 ####[facility]ORATORYCLIA [id number] [address] OF [facility] Hematocrit (Bld) [Volume fraction] 29.8 % Low 39.0-51.0 [facility] Comment on above: Order Comment: Speci men Type: BLOOD SPECIMENOrdering Facility: [facility] Address: [address] [place] [address] Performed By: #### 5 7021-8 ####[facility]ORATORYCLIA [id number] [address] Hemoglobin (Bld) [Mass/Vol] 9.0 g/dL Low 13.0-17.0 [facility] Comment on above: Order Comment: Speci men Type: BLOOD SPECIMENOrdering Facility: [facility] Address: [address] [place] [address] Performed By: #### 5 7021-8 ####[facility]ORATORYCLIA [id number] [address] IMMATURE GRAN % 0.6 % Normal [facility] Comment on above: Order Comment: Speci men Type: BLOOD SPECIMENOrdering Facility: [facility] Address: [address] [place] [address] Performed By: #### 5 7021-8 ####[facility]ORATORYCLIA [id number] [address] IMMATURE GRAN ABS 0.06 k/uL Normal <0.10 [facility] Comment on above: Order Comment: Speci men Type: BLOOD SPECIMENOrdering Facility: [facility] Address: [address] [place] [address] Performed By: #### 5 7021-8 ####[facility]ORATORYCLIA [id number] [address] Lymphocytes (Bld) [#/Vol] 1.73 10*3/uL Normal 1.00-4.00 [facility] Comment on above: Order Comment: Speci men Type: BLOOD SPECIMENOrdering Facility: [facility] Address: [address] [place] [address] Performed By: #### 5 7021-8 ####[facility]ORATORYCLIA [id number] [address] Lymphocytes/100 WBC (Bld) 17.9 % Normal [facility] Comment on above: Order Comment: Speci men Type: BLOOD SPECIMENOrdering Facility: [facility] Address: [address] [place] [address] Performed By: #### 5 7021-8 ####[facility]ORATORYCLIA [id number] [address] MCH (RBC) [Entitic mass] 28.1 pg Normal 26.0-34.0 [facility] Comment on above: Order Comment: Speci men Type: BLOOD SPECIMENOrdering Facility: [facility] Address: [address] [place] [address] Performed By: #### 5 7021-8 ####[facility]ORATORYCLIA [id number] [address] MCHC (RBC) [Mass/Vol] 30.2 g/dL Low 30.5-36.0 [facility] Comment on above: Order Comment: Speci men Type: BLOOD SPECIMENOrdering Facility: [facility] Address: [address] [place] [address] Performed By: #### 5 7021-8 ####[facility]ORATORYCLIA [id number] [address] MCV (RBC) [Entitic vol] 93.1 fL Normal 80.0-100.0 [facility] Comment on above: Order Comment: Speci men Type: BLOOD SPECIMENOrdering Facility: [facility] Address: [address] [place] [address] Performed By: #### 5 7021-8 ####[facility]ORATORYCLIA [id number] [address] Monocytes (Bld) [#/Vol] 0.59 10*3/uL Normal <0.87 [facility] Comment on above: Order Comment: Speci men Type: BLOOD SPECIMENOrdering Facility: [facility] Address: [address] [place] [address] Performed By: #### 5 7021-8 ####[facility] LABORATORYCLIA [id number] [address] STATES [facility] Monocytes/100 WBC (Bld) 6.1 % Normal [facility] Comment on above: Order Comment: Speci men Type: BLOOD SPECIMENOrdering Facility: [facility] Address: [address] [place] [address] Performed By: #### 5 7021-8 ####[facility]ORATORYCLIA [id number] [address] [place] Neutrophils (Bld) [#/Vol] 6.75 10*3/uL Normal 1.45-7.50 [facility] Comment on above: Order Comment: Speci men Type: BLOOD SPECIMENOrdering Facility: [facility] Address: [address] [place] [address] Performed By: #### 5 7021-8 ####[facility]ORATORYCLIA [id number] [address] Neutrophils/100 WBC (Bld) 69.8 % Normal [facility] Comment on above: Order Comment: Speci men Type: BLOOD SPECIMENOrdering Facility: [facility] Address: [address] [place] [address] Performed By: #### 5 7021-8 ####[facility]ORATORYCLIA [id number] [address] [place] Nucleated RBC (Bld) [#/Vol] 10*3/uL Normal <0.01 [facility] Comment on above: Order Comment: Speci men Type: BLOOD SPECIMENOrdering Facility: [facility] Address: [address] [place] [address] Performed By: #### 5 7021-8 ####[facility] LABORATORYCLIA [id number] [address] [place] Nucleated RBC/100 WBC (Bld) [Ratio] 0.0 /100 WBC Normal [facility] Comment on above: Order Comment: Speci men Type: BLOOD SPECIMENOrdering Facility: [facility] Address: [address] [place] [address] Performed By: #### 5 7021-8 ####[facility]ORATORYCLIA [id number] [address] [place] Platelet mean volume (Bld) [Entitic vol] 11.3 fL Normal 9.0-12.7 [facility] Comment on above: Order Comment: Speci men Type: BLOOD SPECIMENOrdering Facility: [facility] Address: [address] [place] [address] Performed By: #### 5 7021-8 ####[facility]ORATORYCLIA [id number] [address] [place] Platelets (Bld) [#/Vol] 227 10*3/uL Normal 150-400 [facility] Comment on above: Order Comment: Speci men Type: BLOOD SPECIMENOrdering Facility: [facility] Address: [address] [place] [address] Performed By: #### 5 7021-8 ####[facility]ORATORYCLIA [id number] [address] [place] RBC (Bld) [#/Vol] 3.20 10*6/uL Low 4.20-6.00 [facility] Comment on above: Order Comment: Speci men Type: BLOOD SPECIMENOrdering Facility: [facility] Address: [address] [place] [address] Performed By: #### 5 7021-8 ####[facility]ORATORYCLIA [id number] [address] [place] WBC (Bld) [#/Vol] 9.67 10*3/uL Normal 3.70-11.00 [facility] Comment on above: Order Comment: Speci men Type: BLOOD SPECIMENOrdering Facility: [facility] Address: [address] [place] [address] Performed By: #### 5 7021-8 ####[facility] LABORATORYCLIA [id number] [address] OF [facility] CONSULT PROGon 07-27-2021 CONSULT PROG Normal [facility] CSF MANUAL DIFFon 07-27-2021 DIF TTL, CSF 100 cells counted Normal [facility] Comment on above: Order Comment: Speci men Type: CEREBROSPINAL FLUIDOrdering Facility: [facility] Address: [address] [place] [address] Performed By: #### L AM5795, 19345-0, [id number] ####[facility]ORATORYCLIA [id number] [address] [place] LYMPH%, CSF 75 % Normal 50-90 [facility] Comment on above: Order Comment: Speci men Type: CEREBROSPINAL FLUIDOrdering Facility: [facility] Address: [address] [place] [address] Performed By: #### L [id number], 04709-7, [id number] ####[facility] LABORATORYCLIA [id number] [place] [address] [place] MONO%, CSF 22 % Normal 10-50 [facility] Comment on above: Order Comment: Speci men Type: CEREBROSPINAL FLUIDOrdering Facility: [facility] Address: [address] [place] [address] Performed By: #### L [id number], 54598-7, [id number] ####[facility]ATORYCLIA [id number] [place] [address] [place] NEUT%, CSF 2 % Normal 0-3 [facility] Comment on above: Order Comment: Speci men Type: CEREBROSPINAL FLUIDOrdering Facility: [facility] Address: [address] [place] [address] Performed By: #### L [id number], 17925-5, [id number] ####[facility]ATORYCLIA [id number] [address] OTHER CL%, CSF 1 % Normal [facility] Comment on above: Order Comment: Speci men Type: CEREBROSPINAL FLUIDOrdering Facility: [facility] Address: [address] [place] [address] Result Comment: Path ologist review of microscopy results to follow Performed By: #### L [id number], 22467-9, [id number] ####[facility]ATORYCLIA [id number] [address] [place] CSF PATHOLOGIST INTERP (LAB REFLEX ORDER-NO BILL)on 07-27-2021 CSF STAFF REVIEW Negative Normal [facility] Comment on above: Order Comment: Speci men Type: CEREBROSPINAL FLUIDOrdering Facility: [facility] Address: [address] [place] [address] Performed By: #### L [id number], 36746-4, [id number] ####[facility]ORATORYCLIA [id number] [address] Pathologist name Reviewed by Amador Stevens MD [facility] Comment on above: Order Comment: Speci men Type: CEREBROSPINAL FLUIDOrdering Facility: [facility] Address: [address] [place] [address] Performed By: #### L [id number], 24387-4, [id number] ####[facility]ATORYCLIA [id number] [address] Cell count panel (CSF)on Clarity (CSF) Clear Normal Clear [facility] Comment on above: Order Comment: Speci men Type: CEREBROSPINAL FLUIDOrdering Facility: [facility] Address: [address] [place] [address] Performed By: #### L [id number], 83533-3, [id number] ####[facility]ORYCLIA [id number] [address] Clarity (Unsp spec) Not Indicated Normal Clear [facility] Comment on above: Order Comment: Speci men Type: CEREBROSPINAL FLUIDOrdering Facility: [facility] Address: [address] [address] Performed By: #### L [id number], 59290-1, [id number] ####[facility]ORYCLIA [id number] [address] Color (CSF) Colorless Normal Colorless [facility] Comment on above: Order Comment: Speci men Type: CEREBROSPINAL FLUIDOrdering Facility: [facility] Address: [address] [place] [address] Performed By: #### L [id number], 43279-6, [id number] ####[facility]ATORYCLIA [id number] [address] Color (Spun CSF) Not Indicated Normal Colorless [facility] Comment on above: Order Comment: Speci men Type: CEREBROSPINAL FLUIDOrdering Facility: [facility] Address: [address] [place] [address] Performed By: #### L [id number], 33882-4, [id number] ####[facility]ORATORYCLIA [id number] [address] CSF TUBE NUMBER Sterile Container Normal [facility] Comment on above: Order Comment: Speci men Type: CEREBROSPINAL FLUIDOrdering Facility: [facility] Address: [address] [place] [address] Performed By: #### L [id number], 19934-5, [id number] ####[facility]ORYCLIA [id number] [address] RBC Manual cnt (CSF) [#/Vol] 39 cells/uL High 0-5 [facility] Comment on above: Order Comment: Speci men Type: CEREBROSPINAL FLUIDOrdering Facility: [facility] Address: [address] [place] [address] Performed By: #### L AZ8649, 91417-8, [id number] ####[facility]ORYCLIA [id number] [address] WBC Manual cnt (CSF) [#/Vol] 14 cells/uL High 0-5 [facility] Comment on above: Order Comment: Speci men Type: CEREBROSPINAL FLUIDOrdering Facility: [facility] Address: [address] [place] [address] Performed By: #### L [id number], 66334-3, [id number] ####[facility]ORATORYCLIA [id number] [place] [address] [place] Glucose CSF-ncon 2 Glucose (CSF) [Mass/Vol] 64 mg/dL Normal 40-70 [facility] Comment on above: Order Comment: Speci men Type: CEREBROSPINAL FLUIDOrdering Facility: [facility] Address: [address] [place] [address] Result Comment: Lumb ar CSF glucose values of healthy patients are approximately 60% of the plasma values and must always be compared with a concurrently measured plasma value for adequate clinical interpretation.References: 1. Glucose HK (GLUC3) [package insert V 12.0 Peruvian]. [employer], [place], [place]. September 2015. 2. Michelle Moore, Loki HGarfield (2015). Chapter 7: Glucose and Lactate. F. Irina rose al.(eds.), Cerebrospinal Fluid in Clinical Neurology. [place]: [employer]. Performed By: #### 2 342-4, 2880-3 ####[facility]ORATORYCLIA [id number] [place] [address] [place] NUTRITIONon 07-27-2021 NUTRITION Normal [facility] Prot CSF-ncon 07-27-2021 Protein (CSF) [Mass/Vol] 58 mg/dL High 15-45 [facility] Comment on above: Order Comment: Speci men Type: CEREBROSPINAL FLUIDOrdering Facility: [facility] Address: [address] [place] [address] Performed By: #### 2 342-4, 2880-3 ####[facility]ORATORYCLIA [id number] [place] [address] [place] aPTT PPPon 07-27-2021 aPTT Coag (PPP) [Time] 68.4 s High 23.0-32.4 [facility] Comment on above: Order Comment: Speci men Type: BLOOD SPECIMENOrdering Facility: [facility] Address: [address] [place] [address] Performed By: #### 1 4979-9 ####[facility]ORATORYCLIA [id number] [address] aPTT Coag (PPP) [Time] 51.3 s High 23.0-32.4 [facility] Comment on above: Order Comment: Speci men Type: BLOOD SPECIMENOrdering Facility: [facility] Address: [address] [place] [address] Performed By: #### 1 4979-9 ####[facility]ORATORYCLIA [id number] [address] ALLIED HEALTHon 07-26-2021 ALLIED HEALTH HNO ID: [id number] Author: Stephanie Maldonado, contract post office clerk Service: Radiology Author Type: Landscape Photographer Type: Allied Health Filed: 07/26/2021 4:10 PM Note Text: Spoke with nurse. Pt getting new EVD today. Try tomorrow. Normal [facility] Bacteria CSF Culton 07-27-19 Bacteria identified Cx Nom (CSF) Abnormal [facility] Comment on above: Performed By: #### 6 06-4 ####[facility]ORATORYCLIA [id number] [address] STATES OF [facility] Basic metabolic 2000 panelon 07-26-2021 Anion gap [Moles/Vol] 6 mmol/L Low 9-18 [facility] Comment on above: Order Comment: Speci men Type: BLOOD SPECIMENOrdering Facility: [facility] Address: [address] [place] [address] Performed By: #### 2 4321-2 ####[facility]ORATORYCLIA [id number] [address] STATES [place] Calcium [Mass/Vol] 9.2 mg/dL Normal 8.5-10.2 [facility] Comment on above: Order Comment: Speci men Type: BLOOD SPECIMENOrdering Facility: [facility] Address: [address] [address] Performed By: #### 2 4321-2 ####[facility]ORATORYCLIA [id number] [address] STATES [place] Chloride [Moles/Vol] 99 mmol/L Normal 97-105 [facility] Comment on above: Order Comment: Speci men Type: BLOOD SPECIMENOrdering Facility: [facility] Address: [address] [place] [address] Performed By: #### 2 4321-2 ####[facility]ORATORYCLIA [id number] [address] STATES [place] CO2 [Moles/Vol] 32 mmol/L High 22-30 [facility] Comment on above: Order Comment: Speci men Type: BLOOD SPECIMENOrdering Facility: [facility] Address: [address] [place] [address] Performed By: #### 2 4321-2 ####[facility]ORATORYCLIA [id number] [address] STATES [place] Creatinine [Mass/Vol] 0.74 mg/dL Normal 0.73-1.22 [facility] Comment on above: Order Comment: Speci men Type: BLOOD SPECIMENOrdering Facility: [facility] Address: [address] [place] [address] Performed By: #### 2 4321-2 ####[facility]ORATORYCLIA [id number] [address] ESTIMATED GLOMERULAR FILTRATION RATE 98 mL/min/1.73m??? Normal >=60 [facility] Comment on above: Order Comment: Speci men Type: BLOOD SPECIMENOrdering Facility: [facility] Address: [address] [place] [address] Result Comment: Luzmaria mated Glomerular Filtration Rate [...] By: #### 2 4321-2 ####[facility]ORATORYCLIA [id number] [place] [address] [place] Glucose [Mass/Vol] 126 mg/dL High 74-99 [facility] Comment on above: Order Comment: Shira feldman Type: BLOOD SPECIMENOrdering Facility: [facility] Address: [address] [place] [address] Result Comment: The [place] [employer] (ADA) provides guidance for cutoff [...] Standards of Medical Care in Diabetes 2016, [place] [employer]. Diabetes Care. 2016.39(Suppl 1). Performed By: #### 2 4321-2 ####[facility]ORATORYCLIA [id number] [place] [address] [place] Potassium [Moles/Vol] 4.2 mmol/L Normal 3.7-5.1 [facility] Comment on above: Order Comment: Shira feldman Type: BLOOD SPECIMENOrdering Facility: [facility] Address: [address] [address] Performed By: #### 2 4321-2 ####[facility]ORATORYCLIA [id number] [place] [address] [place] Sodium [Moles/Vol] 137 mmol/L Normal 136-144 [facility] Comment on above: Order Comment: Shira feldman Type: BLOOD SPECIMENOrdering Facility: [facility] Address: [address] [address] Performed By: #### 2 4321-2 ####[facility]ORATORYCLIA [id number] [address] STATES [facility] Urea nitrogen [Mass/Vol] 36 mg/dL High 9-24 [facility] Comment on above: Order Comment: Speci men Type: BLOOD SPECIMENOrdering Facility: [facility] Address: [address] [place] [address] Performed By: #### 2 4321-2 ####[facility]ORATORYCLIA [id number] [address] [place] CBC W Auto Differential pane l (Bld)on 07-26-2021 Basophils (Bld) [#/Vol] 0.04 10*3/uL Normal <0.11 [facility] Comment on above: Order Comment: Speci men Type: BLOOD SPECIMENOrdering Facility: [facility] Address: [address] [place] [address] Performed By: #### 5 7021-8 ####[facility]ORATORYCLIA [id number] [address] STATES [facility] Basophils/100 WBC (Bld) 0.4 % Normal [facility] Comment on above: Order Comment: Speci men Type: BLOOD SPECIMENOrdering Facility: [facility] Address: [address] [place] [address] Performed By: #### 5 7021-8 ####[facility]ATORYCLIA [id number] [address] Differential cell count method Nom (Bld) Auto Normal [facility] Comment on above: Order Comment: Speci men Type: BLOOD SPECIMENOrdering Facility: [facility] Address: [address] [place] [address] Performed By: #### 5 7021-8 ####[facility]ORATORYCLIA [id number] [address] [place] Eosinophils (Bld) [#/Vol] 0.63 10*3/uL High <0.46 [facility] Comment on above: Order Comment: Speci men Type: BLOOD SPECIMENOrdering Facility: [facility] Address: [address] [place] [address] Performed By: #### 5 7021-8 ####[facility]ATORYCLIA [id number] [address] [place] Eosinophils/100 WBC (Bld) 5.8 % Normal [facility] Comment on above: Order Comment: Speci men Type: BLOOD SPECIMENOrdering Facility: [facility] Address: [address] [place] [address] Performed By: #### 5 7021-8 ####[facility]ORATORYCLIA [id number] [address] Erythrocyte distribution width (RBC) [Ratio] 16.8 % High 11.5-15.0 [facility] Comment on above: Order Comment: Speci men Type: BLOOD SPECIMENOrdering Facility: [facility] Address: [address] [place] [address] Performed By: #### 5 7021-8 ####[facility]ORATORYCLIA [id number] [address] Hematocrit (Bld) [Volume fraction] 31.2 % Low 39.0-51.0 [facility] Comment on above: Order Comment: Speci men Type: BLOOD SPECIMENOrdering Facility: [facility] Address: [address] [place] [address] Performed By: #### 5 7021-8 ####[facility]ORATORYCLIA [id number] [address] [place] Hemoglobin (Bld) [Mass/Vol] 9.1 g/dL Low 13.0-17.0 [facility] Comment on above: Order Comment: Speci men Type: BLOOD SPECIMENOrdering Facility: [facility] Address: [address] [place] [address] Performed By: #### 5 7021-8 ####[facility]ORATORYCLIA [id number] [address] IMMATURE GRAN % 0.6 % Normal [facility] Comment on above: Order Comment: Speci men Type: BLOOD SPECIMENOrdering Facility: [facility] Address: [address] [place] [address] Performed By: #### 5 7021-8 ####[facility]ORATORYCLIA [id number] [address] IMMATURE GRAN ABS 0.07 k/uL Normal <0.10 [facility] Comment on above: Order Comment: Speci men Type: BLOOD SPECIMENOrdering Facility: [facility] Address: [address] [place] [address] Performed By: #### 5 7021-8 ####[facility]ORATORYCLIA [id number] [address] Lymphocytes (Bld) [#/Vol] 2.16 10*3/uL Normal 1.00-4.00 [facility] Comment on above: Order Comment: Speci men Type: BLOOD SPECIMENOrdering Facility: [facility] Address: [address] [place] [address] Performed By: #### 5 7021-8 ####[facility]ORATORYCLIA [id number] [address] Lymphocytes/100 WBC (Bld) 20.0 % Normal [facility] Comment on above: Order Comment: Speci men Type: BLOOD SPECIMENOrdering Facility: [facility] Address: [address] [place] [address] Performed By: #### 5 7021-8 ####[facility]ORATORYCLIA [id number] [address] STATES [facility] MCH (RBC) [Entitic mass] 27.7 pg Normal 26.0-34.0 [facility] Comment on above: Order Comment: Speci men Type: BLOOD SPECIMENOrdering Facility: [facility] Address: [address] [place] [address] Performed By: #### 5 7021-8 ####[facility]ORATORYCLIA [id number] [address] STATES OF [facility] MCHC (RBC) [Mass/Vol] 29.2 g/dL Low 30.5-36.0 [facility] Comment on above: Order Comment: Speci men Type: BLOOD SPECIMENOrdering Facility: [facility] Address: [address] [place] [address] Performed By: #### 5 7021-8 ####[facility]ATORYCLIA [id number] [address] MCV (RBC) [Entitic vol] 95.1 fL Normal 80.0-100.0 [facility] Comment on above: Order Comment: Speci men Type: BLOOD SPECIMENOrdering Facility: [facility] Address: [address] [place] [address] Performed By: #### 5 7021-8 ####[facility]ATORYCLIA [id number] [address] [place] Monocytes (Bld) [#/Vol] 0.63 10*3/uL Normal <0.87 [facility] Comment on above: Order Comment: Speci men Type: BLOOD SPECIMENOrdering Facility: [facility] Address: [address] [place] [address] Performed By: #### 5 7021-8 ####[facility]ATORYCLIA [id number] [address] Monocytes/100 WBC (Bld) 5.8 % Normal [facility] Comment on above: Order Comment: Speci men Type: BLOOD SPECIMENOrdering Facility: [facility] Address: [address] [place] [address] Performed By: #### 5 7021-8 ####[facility]ATORYCLIA [id number] [address] [place] Neutrophils (Bld) [#/Vol] 7.25 10*3/uL Normal 1.45-7.50 [facility] Comment on above: Order Comment: Speci men Type: BLOOD SPECIMENOrdering Facility: [facility] Address: [address] [place] [address] Performed By: #### 5 7021-8 ####[facility]ATORYCLIA [id number] [address] Neutrophils/100 WBC (Bld) 67.4 % Normal [facility] Comment on above: Order Comment: Speci men Type: BLOOD SPECIMENOrdering Facility: [facility] Address: [address] [place] [address] Performed By: #### 5 7021-8 ####[facility]ORATORYCLIA [id number] [address] Nucleated RBC (Bld) [#/Vol] 10*3/uL Normal <0.01 [facility] Comment on above: Order Comment: Speci men Type: BLOOD SPECIMENOrdering Facility: [facility] Address: [address] [place] [address] Performed By: #### 5 7021-8 ####[facility]ATORYCLIA [id number] [address] Nucleated RBC/100 WBC (Bld) [Ratio] 0.0 /100 WBC Normal [facility] Comment on above: Order Comment: Speci men Type: BLOOD SPECIMENOrdering Facility: [facility] Address: [address] [place] [address] Performed By: #### 5 7021-8 ####[facility]ATORYCLIA [id number] [address] Platelet mean volume (Bld) [Entitic vol] 11.2 fL Normal 9.0-12.7 [facility] Comment on above: Order Comment: Speci men Type: BLOOD SPECIMENOrdering Facility: [facility] Address: [address] [place] [address] Performed By: #### 5 7021-8 ####[facility]ATORYCLIA [id number] [address] [place] Platelets (Bld) [#/Vol] 245 10*3/uL Normal 150-400 [facility] Comment on above: Order Comment: Speci men Type: BLOOD SPECIMENOrdering Facility: [facility] Address: [address] [place], [place] [address] Performed By: #### 5 7021-8 ####[facility]ORATORYCLIA [id number] [address] STATES OF [facility] RBC (Bld) [#/Vol] 3.28 10*6/uL Low 4.20-6.00 [facility] Comment on above: Order Comment: Speci men Type: BLOOD SPECIMENOrdering Facility: [facility] Address: [address] [place], [place] [address] Performed By: #### 5 7021-8 ####[facility]ATORYCLIA [id number] [address] STATES OF [facility] WBC (Bld) [#/Vol] 10.78 10*3/uL Normal 3.70-11.00 [facility] Comment on above: Order Comment: Speci men Type: BLOOD SPECIMENOrdering Facility: [facility] Address: [address] [place] [address] Performed By: #### 5 7021-8 ####[facility]ORATORYCLIA [id number] [address] OF [facility] CSF MANUAL DIFFon 07-26-2021 DIF TTL, CSF 100 cells counted Normal [facility] Comment on above: Order Comment: Speci men Type: CEREBROSPINAL FLUIDOrdering Facility: [facility] Address: [address] [place], [place] [address] Performed By: #### 3 4563-7, [id number], [id number] ####[facility]ATORYCLIA [id number] [address] [place] LYMPH%, CSF 26 % Low 50-90 [facility] Comment on above: Order Comment: Speci men Type: CEREBROSPINAL FLUIDOrdering Facility: [facility] Address: [address] [place], [place] [address] Performed By: #### 3 4563-7, [id number], [id number] ####[facility]ATORYCLIA [id number] [place] [address] [place] MACRO%, CSF 10 % High <1 [facility] Comment on above: Order Comment: Speci men Type: CEREBROSPINAL FLUIDOrdering Facility: [facility] Address: [address] [place] [address] Performed By: #### 3 4563-7, [id number], [id number] ####[facility]ATORYCLIA [id number] [place] [address] [place] MONO%, CSF 20 % Normal 10-50 [facility] Comment on above: Order Comment: Speci men Type: CEREBROSPINAL FLUIDOrdering Facility: [facility] Address: [address] [place] [address] Performed By: #### 3 4563-7, [id number], [id number] ####[facility]ORYCLIA [id number] [place] [address] [place] NEUT%, CSF 40 % High 0-3 [facility] Comment on above: Order Comment: Speci men Type: CEREBROSPINAL FLUIDOrdering Facility: [facility] Address: [address] [place] [address] Performed By: #### 3 4563-7, [id number], [id number] ####[facility]ORYCLIA [id number] [address] [place] OTHER CL%, CSF 2 % Normal [facility] Comment on above: Order Comment: Speci men Type: CEREBROSPINAL FLUIDOrdering Facility: [facility] Address: [address] [place] [address] Result Comment: Path review to follow. Performed By: #### 3 4563-7, [id number], [id number] ####[facility]ORYCLIA [id number] [place] [address] [place] REAC LYMPH %, CSF 2 % Normal [facility] Comment on above: Order Comment: Speci men Type: CEREBROSPINAL FLUIDOrdering Facility: [facility] Address: [address] [place] [address] Performed By: #### 3 4563-7, [id number], [id number] ####[facility]ORATORYCLIA [id number] [address] CSF PATHOLOGIST INTERP (LAB REFLEX ORDER-NO BILL)on 07-26-2021 CSF STAFF REVIEW Negative for maligna nt cells. Rare bacteria present, cocci in pairs and chains. Correlation with CSF cultures is recommended. Normal [facility] Comment on above: Order Comment: Speci men Type: CEREBROSPINAL FLUIDOrdering Facility: [facility] Address: [address] [place] [address] Performed By: #### 3 4563-7, [id number], [id number] ####[facility]ORATORYCLIA [id number] [address] Pathologist name Reviewed by Amador Stevens MD [facility] Comment on above: Order Comment: Speci men Type: CEREBROSPINAL FLUIDOrdering Facility: [facility] Address: [address] [place] [address] Performed By: #### 3 4563-7, [id number], [id number] ####[facility]ORATORYCLIA [id number] [address] [place] Cell count panel (CSF)on Clarity (CSF) Slightly Cloudy Abnormal Clear [facility] Comment on above: Order Comment: Speci men Type: CEREBROSPINAL FLUIDOrdering Facility: [facility] Address: [address] [place] [address] Performed By: #### 3 4563-7, [id number], [id number] ####[facility]ORATORYCLIA [id number] [address] [place] Clarity (Unsp spec) Clear Normal Clear [facility] Comment on above: Order Comment: Speci men Type: CEREBROSPINAL FLUIDOrdering Facility: [facility] Address: [address] [place] [address] Performed By: #### 3 4563-7, [id number], [id number] ####[facility]ATORYCLIA [id number] [address] Color (CSF) Colorless Normal Colorless [facility] Comment on above: Order Comment: Speci men Type: CEREBROSPINAL FLUIDOrdering Facility: [facility] Address: [address] [place] [address] Performed By: #### 3 4563-7, [id number], [id number] ####[facility]ORATORYCLIA [id number] [address] Color (Spun CSF) Not Indicated Normal Colorless [facility] Comment on above: Order Comment: Speci men Type: CEREBROSPINAL FLUIDOrdering Facility: [facility] Address: [address] [place] [address] Performed By: #### 3 [id number], [id number] ####[facility] LABORATORYCLIA [id number] [address] CSF TUBE NUMBER Sterile Container Normal [facility] Comment on above: Order Comment: Speci men Type: CEREBROSPINAL FLUIDOrdering Facility: [facility] Address: [address] [place] [address] Performed By: #### 3 4563-7, [id number], [id number] ####[facility]ORATORYCLIA [id number] [address] RBC Manual cnt (CSF) [#/Vol] 1 cells/uL Normal 0-[address] [place] [address] Comment on above: Order Comment: Speci men Type: CEREBROSPINAL FLUIDOrdering Facility: [facility] Address: [address] [address] Performed By: #### 3 4563-7, [id number], [id number] ####[facility]ATORYCLIA [id number] [address] WBC Manual cnt (CSF) [#/Vol] 50 cells/uL High 0-5 [facility] Comment on above: Order Comment: Speci men Type: CEREBROSPINAL FLUIDOrdering Facility: [facility] Address: [address] [place] [address] Performed By: #### 3 4563-7, [id number], [id number] ####[facility] LABORATORYCLIA [id number] [place] [address] [place] Glucose CSF-mCncon Glucose (CSF) [Mass/Vol] 64 mg/dL Normal 40-70 [facility] Comment on above: Order Comment: Speci men Type: CEREBROSPINAL FLUIDOrdering Facility: [facility] Address: [address] [place] [address] Result Comment: Lumb ar CSF glucose values of healthy patients are approximately 60% of the plasma values and must always be compared with a concurrently measured plasma value for adequate clinical interpretation.References: 1. Glucose HK (GLUC3) [package insert V 12.0 Peruvian]. [employer], [place], [place]. September 2015. 2. Michelle Moore, Loki HGarfield (2015). Chapter 7: Glucose and Lactate. F. Irina rose al.(eds.), Cerebrospinal Fluid in Clinical Neurology. [place]: [employer]. Performed By: #### 2 880-3, 2342-4 ####[facility] LABORATORYCLIA [id number] [place] [address] [place] Magnesium SerPl-ncon 07-26 Magnesium [Mass/Vol] 2.3 mg/dL Normal 1.7-2.3 [facility] Comment on above: Order Comment: Speci men Type: BLOOD SPECIMENOrdering Facility: [facility] Address: [address] [place] [address] Performed By: #### 1 9123-9, 2777-1, 3016-3 ####[facility]ORATORYCLIA [id number] [place] [address] [place] NURSING PROGon 07-26-2021 NURSING PROG Normal [facility] Phosphate SerPl-mCncon 07-26 Phosphate [Mass/Vol] 2.6 mg/dL Low 2.7-4.8 [facility] Comment on above: Order Comment: Speci men Type: BLOOD SPECIMENOrdering Facility: [facility] Address: [address] [place] [address] Performed By: #### 1 9123-9, 2777-1, 3016-3 ####[facility]ATORYCLIA [id number] [place] [address] [place] Prot CSF-mCncon 07-26-2021 Protein (CSF) [Mass/Vol] 64 mg/dL High 15-45 [facility] Comment on above: Order Comment: Speci men Type: CEREBROSPINAL FLUIDOrdering Facility: [facility] Address: [address] [place] [address] Performed By: #### 2 880-3, 2342-4 ####[facility]ORATORYCLIA [id number] [address] OF [facility] THERAPY NTon 07-26-2021 THERAPY NT Normal [facility] TSH SerPl-aCncon 07-26-2021 TSH Qn 1.470 m[IU]/L Normal 0.270-4.200 [facility] Comment on above: Order Comment: Speci men Type: BLOOD SPECIMENOrdering Facility: [facility] Address: [address] [place] [address] Performed By: #### 1 9123-9, 2777-1, 3016-3 ####[facility]ATORYCLIA [id number] [address] [place] VITAMIN B12 BLOODon 07-27-19 Cobalamin (Vitamin B12) [Mass/Vol] 934 pg/mL Normal 232-1,245 [facility] Comment on above: Order Comment: Speci men Type: BLOOD SPECIMENOrdering Facility: [facility] Address: [address] [place] [address] Performed By: #### B 12 ####[facility]ATORYCLIA [id number] [place] [address] [place] aPTT PPPon 07-26-2021 aPTT Coag (PPP) [Time] 53.6 s High 23.0-32.4 [facility] Comment on above: Order Comment: Speci men Type: BLOOD SPECIMENOrdering Facility: [facility] Address: [address] [place] [address] Performed By: #### 1 4979-9 ####[facility]ATORYCLIA [id number] [address] aPTT Coag (PPP) [Time] 44.9 s High 23.0-32.4 [facility] Comment on above: Order Comment: Speci men Type: BLOOD SPECIMENOrdering Facility: [facility] Address: [address] [place] [address] Performed By: #### 1 4979-9 ####[facility]ORATORYCLIA [id number] [address] ALLIED HEALTHon 07-25-2021 ALLIED HEALTH HNO ID: [id number] Author: RT Rajwinder(R) Service: Radiology Author Type: Technologist Type: Allied Health Filed: 07/25/2021 1:37 PM Note Text: Called floor for MRI screening form [id number] Normal [facility] Bacteria Bld Culton 07-26-19 22 Bacteria identified Cx Nom (Bld) CULTURE, BLOOD: No growth 5 days Normal [facility] Comment on above: Performed By: #### 6 00-7 ####[facility]ORATORYCLIA [id number] [address] Bacteria identified Cx Nom (Bld) CULTURE, BLOOD: No growth 5 days Normal [facility] Comment on above: Performed By: #### 6 00-7 ####[facility]ORATORYCLIA [id number] [address] CASE MANAGEMon 07-25-2021 CASE MANAGEM Normal [facility] CBC W Auto Differential pane l (Bld)on 07-25-2021 Basophils (Bld) [#/Vol] 0.06 10*3/uL Normal <0.11 [facility] Comment on above: Order Comment: Speci men Type: BLOOD SPECIMENOrdering Facility: [facility] Address: [address] [address] Performed By: #### 5 7021-8 ####[facility] LABORATORYCLIA [id number] [address] STATES [facility] Basophils/100 WBC (Bld) 0.6 % Normal [facility] Comment on above: Order Comment: Speci men Type: BLOOD SPECIMENOrdering Facility: [facility] Address: [address] [place] [address] Performed By: #### 5 7021-8 ####[facility]ORATORYCLIA [id number] [address] Differential cell count method Nom (Bld) Auto Normal [facility] Comment on above: Order Comment: Speci men Type: BLOOD SPECIMENOrdering Facility: [facility] Address: [address] [place] [address] Performed By: #### 5 7021-8 ####[facility]ORATORYCLIA [id number] [address] [place] Eosinophils (Bld) [#/Vol] 0.26 10*3/uL Normal <0.46 [facility] Comment on above: Order Comment: Speci men Type: BLOOD SPECIMENOrdering Facility: [facility] Address: [address] [place] [address] Performed By: #### 5 7021-8 ####[facility]ATORYCLIA [id number] [address] STATES [facility] Eosinophils/100 WBC (Bld) 2.5 % Normal [facility] Comment on above: Order Comment: Speci men Type: BLOOD SPECIMENOrdering Facility: [facility] Address: [address] [place] [address] Performed By: #### 5 7021-8 ####[facility]ATORYCLIA [id number] [address] [place] Erythrocyte distribution width (RBC) [Ratio] 16.9 % High 11.5-15.0 [facility] Comment on above: Order Comment: Speci men Type: BLOOD SPECIMENOrdering Facility: [facility] Address: [address] [place] [address] Performed By: #### 5 7021-8 ####[facility]ORATORYCLIA [id number] [address] OF [facility] Hematocrit (Bld) [Volume fraction] 29.6 % Low 39.0-51.0 [facility] Comment on above: Order Comment: Speci men Type: BLOOD SPECIMENOrdering Facility: [facility] Address: [address] [place] [address] Performed By: #### 5 7021-8 ####[facility]ORATORYCLIA [id number] [address] Hemoglobin (Bld) [Mass/Vol] 8.8 g/dL Low 13.0-17.0 [facility] Comment on above: Order Comment: Speci men Type: BLOOD SPECIMENOrdering Facility: [facility] Address: [address] [place] [address] Performed By: #### 5 7021-8 ####[facility]ORATORYCLIA [id number] [address] IMMATURE GRAN % 0.6 % Normal [facility] Comment on above: Order Comment: Speci men Type: BLOOD SPECIMENOrdering Facility: [facility] Address: [address] [place] [address] Performed By: #### 5 7021-8 ####[facility]ORATORYCLIA [id number] [address] IMMATURE GRAN ABS 0.06 k/uL Normal <0.10 [facility] Comment on above: Order Comment: Speci men Type: BLOOD SPECIMENOrdering Facility: [facility] Address: [address] [place] [address] Performed By: #### 5 7021-8 ####[facility]ORATORYCLIA [id number] [address] OF [facility] Lymphocytes (Bld) [#/Vol] 2.15 10*3/uL Normal 1.00-4.00 [facility] Comment on above: Order Comment: Speci men Type: BLOOD SPECIMENOrdering Facility: [facility] Address: [address] [place] [address] Performed By: #### 5 7021-8 ####[facility]ORATORYCLIA [id number] [address] Lymphocytes/100 WBC (Bld) 20.7 % Normal [facility] Comment on above: Order Comment: Speci men Type: BLOOD SPECIMENOrdering Facility: [facility] Address: [address] [place] [address] Performed By: #### 5 7021-8 ####[facility]ORATORYCLIA [id number] [address] STATES [facility] MCH (RBC) [Entitic mass] 28.2 pg Normal 26.0-34.0 [facility] Comment on above: Order Comment: Speci men Type: BLOOD SPECIMENOrdering Facility: [facility] Address: [address] [place] [address] Performed By: #### 5 7021-8 ####[facility]ORATORYCLIA [id number] [address] STATES OF [facility] MCHC (RBC) [Mass/Vol] 29.7 g/dL Low 30.5-36.0 [facility] Comment on above: Order Comment: Speci men Type: BLOOD SPECIMENOrdering Facility: [facility] Address: [address] [place] [address] Performed By: #### 5 7021-8 ####[facility]ORATORYCLIA [id number] [address] MCV (RBC) [Entitic vol] 94.9 fL Normal 80.0-100.0 [facility] Comment on above: Order Comment: Speci men Type: BLOOD SPECIMENOrdering Facility: [facility] Address: [address] [place] [address] Performed By: #### 5 7021-8 ####[facility] LABORATORYCLIA [id number] [place] [address] [place] Monocytes (Bld) [#/Vol] 0.62 10*3/uL Normal <0.87 [facility] Comment on above: Order Comment: Speci men Type: BLOOD SPECIMENOrdering Facility: [facility] Address: [address] [place] [address] Performed By: #### 5 7021-8 ####[facility]ATORYCLIA [id number] [address] [place] Monocytes/100 WBC (Bld) 6.0 % Normal [facility] Comment on above: Order Comment: Speci men Type: BLOOD SPECIMENOrdering Facility: [facility] Address: [address] [place] [address] Performed By: #### 5 7021-8 ####[facility]ORATORYCLIA [id number] [address] [place] Neutrophils (Bld) [#/Vol] 7.25 10*3/uL Normal 1.45-7.50 [facility] Comment on above: Order Comment: Speci men Type: BLOOD SPECIMENOrdering Facility: [facility] Address: [address] [place] [address] Performed By: #### 5 7021-8 ####[facility]ATORYCLIA [id number] [address] [place] Neutrophils/100 WBC (Bld) 69.6 % Normal [facility] Comment on above: Order Comment: Speci men Type: BLOOD SPECIMENOrdering Facility: [facility] Address: [address] [place] [address] Performed By: #### 5 7021-8 ####[facility] LABORATORYCLIA [id number] [place] [address] [place] Nucleated RBC (Bld) [#/Vol] 10*3/uL Normal <0.01 [facility] Comment on above: Order Comment: Speci men Type: BLOOD SPECIMENOrdering Facility: [facility] Address: [address] [place] [address] Performed By: #### 5 7021-8 ####[facility]ORATORYCLIA [id number] [address] [place] Nucleated RBC/100 WBC (Bld) [Ratio] 0.0 /100 WBC Normal [facility] Comment on above: Order Comment: Speci men Type: BLOOD SPECIMENOrdering Facility: [facility] Address: [address] [place] [address] Performed By: #### 5 7021-8 ####[facility]ORATORYCLIA [id number] [place] [address] [place] Platelet mean volume (Bld) [Entitic vol] 11.3 fL Normal 9.0-12.7 [facility] Comment on above: Order Comment: Speci men Type: BLOOD SPECIMENOrdering Facility: [facility] Address: [address] [place] [address] Performed By: #### 5 7021-8 ####[facility]ORATORYCLIA [id number] [place] [address] [place] Platelets (Bld) [#/Vol] 243 10*3/uL Normal 150-400 [facility] Comment on above: Order Comment: Speci men Type: BLOOD SPECIMENOrdering Facility: [facility] Address: [address] Performed By: #### 5 7021-8 ####[facility]ORATORYCLIA [id number] [place] [address] [place] RBC (Bld) [#/Vol] 3.12 10*6/uL Low 4.20-6.00 [facility] Comment on above: Order Comment: Speci men Type: BLOOD SPECIMENOrdering Facility: [facility] Address: [address] [place] [address] Performed By: #### 5 7021-8 ####[facility]ORATORYCLIA [id number] [place] [address] [place] WBC (Bld) [#/Vol] 10.40 10*3/uL Normal 3.70-11.00 [facility] Comment on above: Order Comment: Speci men Type: BLOOD SPECIMENOrdering Facility: [facility] Address: [address] [place] [address] Performed By: #### 5 7021-8 ####[facility]ORATORYCLIA [id number] [address] [place] CONSULT PROGon 07-25-2021 CONSULT PROG Normal [facility] MYCOPLASMA PNEUM IGMon 07-25 M. PNEUMO IGM, QUAL Negative Normal Negative [facility] Comment on above: Order Comment: Speci men Type: BLOOD SPECIMENOrdering Facility: [facility] Address: [address] [place] [address] Result Comment: Myco plasma pneumoniae IgM antibody test is used as an aid in diagnosis of recent infection with M. pneumoniae. It may occasionally remain elevated for extended periods after an acute infection. Cannot exclude recent infection if the specimen collected 7-10 days after onset of signs and symptoms. Clinical correlation is required. Performed By: #### M YCOPM ####[facility] LABCLIA [id number] [facility] [id number] [place] NURSING PROGon 07-25-2021 NURSING PROG Normal [facility] THERAPY NTon 07-25-2021 THERAPY NT Normal [facility] THERAPY NT Normal [facility] aPTT PPPon 07-25-2021 aPTT Coag (PPP) [Time] 62.6 s High 23.0-32.4 [facility] Comment on above: Order Comment: Speci men Type: BLOOD SPECIMENOrdering Facility: [facility] Address: [address] [place] [address] Performed By: #### 1 4979-9 ####[facility]ORATORYCLIA [id number] [address] [place] Bacteria Ur Culton 03-20-202 2 Bacteria identified Cx Nom (U) CULTURE, URINE: No growth (<100 CFU/ml) Normal [facility] Comment on above: Performed By: #### 6 30-4 ####[facility]ORATORYCLIA [id number] [place] [address] [place] Basic metabolic 2000 panelon 07-24-2021 Anion gap [Moles/Vol] 13 mmol/L Normal 9-18 [facility] Comment on above: Order Comment: Speci men Type: BLOOD SPECIMENOrdering Facility: [facility] Address: [address] [place] [address] Performed By: #### 1 9123-9, PROCCARLITOS, 7-1, 16895-2 ####[facility]ORATORYCLIA [id number] [place] [address] [place] Calcium [Mass/Vol] 9.5 mg/dL Normal 8.5-10.2 [facility] Comment on above: Order Comment: Speci men Type: BLOOD SPECIMENOrdering Facility: [facility] Address: [address] [address] Performed By: #### 1 9123-9, PROCAL, 2776-1, 55105-7 ####[facility]ORATORYCLIA [id number] [address] [place] Chloride [Moles/Vol] 102 mmol/L Normal 97-105 [facility] Comment on above: Order Comment: Speci men Type: BLOOD SPECIMENOrdering Facility: [facility] Address: [address] [address] Performed By: #### 1 9123-9, PROCAL, 2776-1, 92804-1 ####[facility]ORATORYCLIA [id number] [place] [address] [place] CO2 [Moles/Vol] 28 mmol/L Normal 22-30 [facility] Comment on above: Order Comment: Speci men Type: BLOOD SPECIMENOrdering Facility: [facility] Address: [address] [address] Performed By: #### 1 9123-9, PROCAL, 2777-1, 76022-1 ####[facility]ITALCL[facility] [id number] [address] STATES OF [facility] Creatinine [Mass/Vol] 0.86 mg/dL Normal 0.73-1.22 [facility] Comment on above: Order Comment: Speci men Type: BLOOD SPECIMENOrdering Facility: [facility] Address: [address] [address] Performed By: #### 1 9123-9, PROCAR, 2777-1, 12379-4 ####[facility]ITALCLIA [id number] [address] ESTIMATED GLOMERULAR FILTRATION RATE 94 mL/min/1.73m??? Normal >=60 [facility] Comment on above: Order Comment: Speci men Type: BLOOD SPECIMENOrdering Facility: [facility] Address: [address] [address] Result Comment: Luzmaria mated Glomerular Filtration Rate [...] actual GFR. Performed By: #### 1 9123-9, [facility], 2777-1, 19648-8 ####[facility]ORATORYCLIA [id number] [address] STATES [facility] Glucose [Mass/Vol] 148 mg/dL High 74-99 [facility] Comment on above: Order Comment: Speci men Type: BLOOD SPECIMENOrdering Facility: [facility] Address: [address] [address] Result Comment: The [place] [employer] (ADA) provides guidance for cutoff [...] Standards of Medical Care in Diabetes 2016, [place] [employer]. Diabetes Care. 2016.39(Suppl 1). Performed By: #### 1 9123-9, KATIE, 2776-, 53395-5 ####[facility] LABORATORYCLIA [id number] [place] [address] [place] Potassium [Moles/Vol] 4.0 mmol/L Normal 3.7-5.1 [facility] Comment on above: Order Comment: Shira feldman Type: BLOOD SPECIMENOrdering Facility: [facility] Address: [address] [place] [address] Performed By: #### 1 9123-9, [facility], 2776-05, 89046-6 ####[facility]ITALCLIA [id number] [address] STATES OF [facility] Sodium [Moles/Vol] 143 mmol/L Normal 136-144 [facility] Comment on above: Order Comment: Shira feldman Type: BLOOD SPECIMENOrdering Facility: [facility] Address: [address] [place] [address] Performed By: #### 1 9123-9, ELVAAR, 2776-05, 94182-2 ####[facility]ORATORYCLIA [id number] [address] STATES OF [facility] Urea nitrogen [Mass/Vol] 38 mg/dL High 9-24 [facility] Comment on above: Order Comment: Shira feldman Type: BLOOD SPECIMENOrdering Facility: [facility] Address: [address] [place] [address] Performed By: #### 1 9123-9, [facility], 2776-1, 41742-8 ####[facility] LABORATORYCLIA [id number] [place] [address] [place] CBC W Auto Differential pane l (Bld)on 07-24-2021 Basophils (Bld) [#/Vol] 0.06 10*3/uL Normal <0.11 [facility] Comment on above: Order Comment: Speci men Type: BLOOD SPECIMENOrdering Facility: [facility] Address: [address] [address] Performed By: #### 5 7021-8 ####[facility]ORATORYCLIA [id number] [place] [address] [place] Basophils/100 WBC (Bld) 0.6 % Normal [facility] Comment on above: Order Comment: Speci men Type: BLOOD SPECIMENOrdering Facility: [facility] Address: [address] [place] [address] Performed By: #### 5 7021-8 ####[facility] LABORATORYCLIA [id number] [address] STATES OF [facility] Differential cell count method Nom (Bld) Auto Normal [facility] Comment on above: Order Comment: Speci men Type: BLOOD SPECIMENOrdering Facility: [facility] Address: [address] [place] [address] Performed By: #### 5 7021-8 ####[facility] LABORATORYCLIA [id number] [place] [address] [place] Eosinophils (Bld) [#/Vol] 0.03 10*3/uL Normal <0.46 [facility] Comment on above: Order Comment: Speci men Type: BLOOD SPECIMENOrdering Facility: [facility] Address: [address] [place] [address] Performed By: #### 5 7021-8 ####[facility] LABORATORYCLIA [id number] [address] Eosinophils/100 WBC (Bld) 0.3 % Normal [facility] Comment on above: Order Comment: Speci men Type: BLOOD SPECIMENOrdering Facility: [facility] Address: [address] [place] [address] Performed By: #### 5 7021-8 ####[facility] LABORATORYCLIA [id number] [address] Erythrocyte distribution width (RBC) [Ratio] 17.0 % High 11.5-15.0 [facility] Comment on above: Order Comment: Speci men Type: BLOOD SPECIMENOrdering Facility: [facility] Address: [address] [place] [address] Performed By: #### 5 7021-8 ####[facility] LABORATORYCLIA [id number] [address] Hematocrit (Bld) [Volume fraction] 30.5 % Low 39.0-51.0 [facility] Comment on above: Order Comment: Speci men Type: BLOOD SPECIMENOrdering Facility: [facility] Address: [address] [place] [address] Performed By: #### 5 7021-8 ####[facility] LABORATORYCLIA [id number] [address] Hemoglobin (Bld) [Mass/Vol] 9.0 g/dL Low 13.0-17.0 [facility] Comment on above: Order Comment: Speci men Type: BLOOD SPECIMENOrdering Facility: [facility] Address: [address] [place] [address] Performed By: #### 5 7021-8 ####[facility] LABORATORYCLIA [id number] [address] IMMATURE GRAN % 0.5 % Normal [facility] Comment on above: Order Comment: Speci men Type: BLOOD SPECIMENOrdering Facility: [facility] Address: [address] [place] [address] Performed By: #### 5 7021-8 ####[facility] LABORATORYCLIA [id number] [address] IMMATURE GRAN ABS 0.05 k/uL Normal <0.10 [facility] Comment on above: Order Comment: Speci men Type: BLOOD SPECIMENOrdering Facility: [facility] Address: [address] [address] Performed By: #### 5 7021-8 ####[facility] LABORATORYCLIA [id number] [address] [place] Lymphocytes (Bld) [#/Vol] 1.68 10*3/uL Normal 1.00-4.00 [facility] Comment on above: Order Comment: Speci men Type: BLOOD SPECIMENOrdering Facility: [facility] Address: [address] [place] [address] Performed By: #### 5 7021-8 ####[facility] LABORATORYCLIA [id number] [address] Lymphocytes/100 WBC (Bld) 16.2 % Normal [facility] Comment on above: Order Comment: Speci men Type: BLOOD SPECIMENOrdering Facility: [facility] Address: [address] [place] [address] Performed By: #### 5 7021-8 ####[facility] LABORATORYCLIA [id number] [address] STATES OF [facility] MCH (RBC) [Entitic mass] 27.4 pg Normal 26.0-34.0 [facility] Comment on above: Order Comment: Speci men Type: BLOOD SPECIMENOrdering Facility: [facility] Address: [address] [place] [address] Performed By: #### 5 7021-8 ####[facility] LABORATORYCLIA [id number] [address] [place] MCHC (RBC) [Mass/Vol] 29.5 g/dL Low 30.5-36.0 [facility] Comment on above: Order Comment: Speci men Type: BLOOD SPECIMENOrdering Facility: [facility] Address: [address] [place] [address] Performed By: #### 5 7021-8 ####[facility] LABORATORYCLIA [id number] [address] [place] MCV (RBC) [Entitic vol] 93.0 fL Normal 80.0-100.0 [facility] Comment on above: Order Comment: Speci men Type: BLOOD SPECIMENOrdering Facility: [facility] Address: [address] [place] [address] Performed By: #### 5 7021-8 ####[facility] LABORATORYCLIA [id number] [place] [address] [place] Monocytes (Bld) [#/Vol] 0.63 10*3/uL Normal <0.87 [facility] Comment on above: Order Comment: Speci men Type: BLOOD SPECIMENOrdering Facility: [facility] Address: [address] [place] [address] Performed By: #### 5 7021-8 ####[facility] LABORATORYCLIA [id number] [address] [place] Monocytes/100 WBC (Bld) 6.1 % Normal [facility] Comment on above: Order Comment: Speci men Type: BLOOD SPECIMENOrdering Facility: [facility] Address: [address] [place] [address] Performed By: #### 5 7021-8 ####[facility] LABORATORYCLIA [id number] [place] [address] [place] Neutrophils (Bld) [#/Vol] 7.91 10*3/uL High 1.45-7.50 [facility] Comment on above: Order Comment: Speci men Type: BLOOD SPECIMENOrdering Facility: [facility] Address: [address] [place] [address] Performed By: #### 5 7021-8 ####[facility]ATORYCLIA [id number] [place] [address] [place] Neutrophils/100 WBC (Bld) 76.3 % Normal [facility] Comment on above: Order Comment: Speci men Type: BLOOD SPECIMENOrdering Facility: [facility] Address: [address] [place] [address] Performed By: #### 5 7021-8 ####[facility]ORATORYCLIA [id number] [address] [place] Nucleated RBC (Bld) [#/Vol] 10*3/uL Normal <0.01 [facility] Comment on above: Order Comment: Speci men Type: BLOOD SPECIMENOrdering Facility: [facility] Address: [address] [place] [address] Performed By: #### 5 7021-8 ####[facility] LABORATORYCLIA [id number] [address] [place] Nucleated RBC/100 WBC (Bld) [Ratio] 0.0 /100 WBC Normal [facility] Comment on above: Order Comment: Speci men Type: BLOOD SPECIMENOrdering Facility: [facility] Address: [address] [place] [address] Performed By: #### 5 7021-8 ####[facility] LABORATORYCLIA [id number] [address] [place] Platelet mean volume (Bld) [Entitic vol] 11.1 fL Normal 9.0-12.7 [facility] Comment on above: Order Comment: Speci men Type: BLOOD SPECIMENOrdering Facility: [facility] Address: [address] [place] [address] Performed By: #### 5 7021-8 ####[facility]ORATORYCLIA [id number] [address] [place] Platelets (Bld) [#/Vol] 285 10*3/uL Normal 150-400 [facility] Comment on above: Order Comment: Speci men Type: BLOOD SPECIMENOrdering Facility: [facility] Address: [address] [place] [address] Performed By: #### 5 7021-8 ####[facility]ORATORYCLIA [id number] [address] [place] RBC (Bld) [#/Vol] 3.28 10*6/uL Low 4.20-6.00 [facility] Comment on above: Order Comment: Speci men Type: BLOOD SPECIMENOrdering Facility: [facility] Address: [address] [place] [address] Performed By: #### 5 7021-8 ####[facility] LABORATORYCLIA [id number] [place] [address] [place] WBC (Bld) [#/Vol] 10.36 10*3/uL Normal 3.70-11.00 [facility] Comment on above: Order Comment: Speci men Type: BLOOD SPECIMENOrdering Facility: [facility] Address: [address] [place] [address] Performed By: #### 5 7021-8 ####[facility] LABORATORYCLIA [id number] [address] [place] Legionella Ag Ur Qlon 2021 Legionella sp Ag Ql (U) Negative Normal Negative [facility] Comment on above: Order Comment: Speci men Type: URINE SPECIMENOrdering Facility: [facility] Address: [address] [place] [address] Performed By: #### 3 2781-7 ####[facility]ORATORYCLIA [id number] [address] [place] Magnesium SerPl-mCncon 07-24 Magnesium [Mass/Vol] 2.3 mg/dL Normal 1.7-2.3 [facility] Comment on above: Order Comment: Speci men Type: BLOOD SPECIMENOrdering Facility: [facility] Address: [address] [place] [address] Performed By: #### 1 9123-9, PROCAL, 2777-1, 11530-8 ####[facility]ORATORYCLIA [id number] [place] [address] [place] NURSING PROGon 07-24-2021 NURSING PROG Normal [facility] PROCALCITONIN (LAB)on 2021 Procalcitonin [Mass/Vol] 0.15 ng/mL High <0.09 [facility] Comment on above: Order Comment: Speci men Type: BLOOD SPECIMENOrdering Facility: [facility] Address: [address] [place] [address] Result Comment: For a guided interpretation of test results, please visit the Change in Procalcitonin Calculator, [email or web address]. Performed By: #### 1 9123-9, PROCAL, 2777-1, 60468-9 ####[facility]ORATORYCLIA [id number] [address] Phosphate SerPl-mCncon 07-24 Phosphate [Mass/Vol] 3.9 mg/dL Normal 2.7-4.8 [facility] Comment on above: Order Comment: Speci men Type: BLOOD SPECIMENOrdering Facility: [facility] Address: [address] [place] [address] Performed By: #### 1 9123-9, PROCAL, 2777-1, 17898-7 ####[facility]ORATORYCLIA [id number] [address] [place] STREPTOCOCCUS PNEUMONIAE AGo n 07-24-2021 STREPTOCOCCUS PNEUMONIAE AG Normal [facility] Comment on above: Performed By: #### S PNAG ####[facility]ORATORYCLIA [id number] [address] [place] aPTT PPPon 07-24-2021 aPTT Coag (PPP) [Time] 60.8 s High 23.0-32.4 [facility] Comment on above: Order Comment: Speci men Type: BLOOD SPECIMENOrdering Facility: [facility] Address: [address] [place] [address] Performed By: #### 1 4979-9 ####[facility]ORATORYCLIA [id number] [address] aPTT Coag (PPP) [Time] 38.2 s High 23.0-32.4 [facility] Comment on above: Order Comment: Speci men Type: BLOOD SPECIMENOrdering Facility: [facility] Address: [address] [place] [address] Performed By: #### 1 4979-9 ####[facility]ORATORYCLIA [id number] [address] [place] aPTT Coag (PPP) [Time] 35.9 s High 23.0-32.4 [facility] Comment on above: Order Comment: Speci men Type: BLOOD SPECIMENOrdering Facility: [facility] Address: [address] [place] [address] Performed By: #### 1 4979-9 ####[facility]ORATORYCLIA [id number] [address] aPTT Coag (PPP) [Time] 28.8 s Normal 23.0-32.4 [facility] Comment on above: Order Comment: Speci men Type: BLOOD SPECIMENOrdering Facility: [facility] Address: [address] [place] [address] Performed By: #### 1 4979-9 ####[facility]ORATORYCLIA [id number] [address] [place] ALLIED HEALTHon 07-23-2021 ALLIED HEALTH Normal [facility] ALLIED HEALTH Normal [facility] ALLIED HEALTH Normal [facility] ARTERIAL BLOOD GASESon 07-23 Base excess Calc (Bld) [Moles/Vol] 4 mmol/L High 0-2 [facility] Comment on above: Order Comment: Speci men Type: ARTERIAL BLOOD SPECIMENOrdering Facility: [facility] Address: [address] [place] [address] Performed By: #### A LLBG ####[facility]ORATORYCLIA [id number] [address] Body temperature 100.58 [degF] Normal [facility] Comment on above: Order Comment: Speci men Type: ARTERIAL BLOOD SPECIMENOrdering Facility: [facility] Address: [address] [place] [address] Performed By: #### A LLBG ####[facility]ORATORYCLIA [id number] [place] [address] [place] CALCIUM IONIZED, PH CORRECTED 1.26 mmol/L Normal 1.08-1.30 [facility] Comment on above: Order Comment: Speci men Type: ARTERIAL BLOOD SPECIMENOrdering Facility: [facility] Address: [address] [place] [address] Performed By: #### A LLBG ####[facility]ORATORYCLIA [id number] [place] [address] [place] Calcium.ionized (BldV) [Mass/Vol] 1.25 mmol/L Normal 1.08-1.30 [facility] Comment on above: Order Comment: Speci men Type: ARTERIAL BLOOD SPECIMENOrdering Facility: [facility] Address: [address] [place] [address] Performed By: #### A LLBG ####[facility]ATORYCLIA [id number] [address] [place] Carboxyhemoglobin (BldA) [Mass fraction] 1.2 % Normal 0.0-2.0 [facility] Comment on above: Order Comment: Speci men Type: ARTERIAL BLOOD SPECIMENOrdering Facility: [facility] Address: [address] [place] [address] Result Comment: Carb oxyhemoglobin Reference Range for Smokers: 2.0-8.0% Performed By: #### A LLBG ####[facility]ORATORYCLIA [id number] [place] [address] [place] CO2 (Bld) [Partial pressure] 46 mm Hg Normal 36-46 [facility] Comment on above: Order Comment: Speci men Type: ARTERIAL BLOOD SPECIMENOrdering Facility: [facility] Address: [address] [address] Performed By: #### A LLBG ####[facility]ORATORYCLIA [id number] [place] [address] [place] CO2 [Moles/Vol] 27 mmol/L Normal 22-28 [facility] Comment on above: Order Comment: Speci men Type: ARTERIAL BLOOD SPECIMENOrdering Facility: [facility] Address: [address] [place] [address] Performed By: #### A LLBG ####[facility]ORATORYCLIA [id number] [address] CO2 adjusted to patient's actual temperature (Bld) [Partial pressure] 48 mmHg High 36-46 [facility] Comment on above: Order Comment: Speci men Type: ARTERIAL BLOOD SPECIMENOrdering Facility: [facility] Address: [address] [place] [address] Performed By: #### A LLBG ####[facility]ORATORYCLIA [id number] [address] [place] Glucose [Mass/Vol] 134 mg/dL High 60-105 [facility] Comment on above: Order Comment: Speci men Type: ARTERIAL BLOOD SPECIMENOrdering Facility: [facility] Address: [address] [place] [address] Performed By: #### A LLBG ####[facility]ORATORYCLIA [id number] [address] HCO3 (Bld) [Moles/Vol] 29 mmol/L High 22-26 [facility] Comment on above: Order Comment: Speci men Type: ARTERIAL BLOOD SPECIMENOrdering Facility: [facility] Address: [address] [place] [address] Performed By: #### A LLBG ####[facility]ORATORYCLIA [id number] [address] [place] Hematocrit (Bld) [Volume fraction] 31.4 % Low 39.0-51.0 [facility] Comment on above: Order Comment: Speci men Type: ARTERIAL BLOOD SPECIMENOrdering Facility: [facility] Address: [address] [place] [address] Performed By: #### A LLBG ####[facility]ATORYCLIA [id number] [address] [place] Hemoglobin (Bld) [Mass/Vol] 10.2 g/dL Low 13.0-17.0 [facility] Comment on above: Order Comment: Speci men Type: ARTERIAL BLOOD SPECIMENOrdering Facility: [facility] Address: [address] [address] Performed By: #### A LLBG ####[facility]ORATORYCLIA [id number] [address] Methemoglobin (Bld) [Mass fraction] % Normal 0.0-1.5 [facility] Comment on above: Order Comment: Speci men Type: ARTERIAL BLOOD SPECIMENOrdering Facility: [facility] Address: [address] [address] Performed By: #### A LLBG ####[facility]ORATORYCLIA [id number] [address] O2 THERAPY Ventilator Normal [facility] Comment on above: Order Comment: Speci men Type: ARTERIAL BLOOD SPECIMENOrdering Facility: [facility] Address: [address] [place] [address] Performed By: #### A LLBG ####[facility]ATORYCLIA [id number] [address] Oxygen (Bld) [Partial pressure] 113 mm Hg High 85-95 [facility] Comment on above: Order Comment: Speci men Type: ARTERIAL BLOOD SPECIMENOrdering Facility: [facility] Address: [address] [place] [address] Performed By: #### A LLBG ####[facility]ATORYCLIA [id number] [address] Oxygen adjusted to patient's actual temperature (Bld) [Partial pressure] 119 mmHg High 85-95 [facility] Comment on above: Order Comment: Speci men Type: ARTERIAL BLOOD SPECIMENOrdering Facility: [facility] Address: [address] [address] Performed By: #### A LLBG ####[facility]ATORYCLIA [id number] [address] [place] OXYGEN SATURATION, ARTERIAL 98 % Normal 95-98 [facility] Comment on above: Order Comment: Speci men Type: ARTERIAL BLOOD SPECIMENOrdering Facility: [facility] Address: [address] [place] [address] Performed By: #### A LLBG ####[facility]ORATORYCLIA [id number] [address] Oxyhemoglobin (BldA) [Mass fraction] 96 % Normal 95-98 [facility] Comment on above: Order Comment: Speci men Type: ARTERIAL BLOOD SPECIMENOrdering Facility: [facility] Address: [address] [place] [address] Performed By: #### A LLBG ####[facility]ORATORYCLIA [id number] [address] [place] pH (Bld) 7.41 [pH] Normal 7.35-7.45 [facility] Comment on above: Order Comment: Speci men Type: ARTERIAL BLOOD SPECIMENOrdering Facility: [facility] Address: [address] [place] [address] Performed By: #### A LLBG ####[facility]ORATORYCLIA [id number] [address] pH adjusted to patient's actual temperature (Bld) 7.40 Normal 7.35-7.45 [facility] Comment on above: Order Comment: Speci men Type: ARTERIAL BLOOD SPECIMENOrdering Facility: [facility] Address: [address] [place] [address] Performed By: #### A LLBG ####[facility]ATORYCLIA [id number] [address] [place] Potassium [Moles/Vol] 4.3 mmol/L Normal 3.5-5.0 [facility] Comment on above: Order Comment: Speci men Type: ARTERIAL BLOOD SPECIMENOrdering Facility: [facility] Address: [address] [place] [address] Performed By: #### A LLBG ####[facility]ORATORYCLIA [id number] [address] [place] Sodium [Moles/Vol] 144 mmol/L Normal 136-144 [facility] Comment on above: Order Comment: Speci men Type: ARTERIAL BLOOD SPECIMENOrdering Facility: [facility] Address: [address] [place] [address] Performed By: #### A LLBG ####[facility] LABORATORYCLIA [id number] [address] OF [facility] Bacteria CSF Culton 07-24-19 22 Bacteria identified Cx Nom (CSF) Abnormal [facility] Comment on above: Performed By: #### 6 06-4 ####[facility]ATORYCLIA [id number] [address] [place] Basic metabolic 2000 panelon 07-23-2021 Anion gap [Moles/Vol] 12 mmol/L Normal 9-18 [facility] Comment on above: Order Comment: Speci men Type: BLOOD SPECIMENOrdering Facility: [facility] Address: [address] [place] [address] Performed By: #### 2 4321-2 ####[facility]ORATORYCLIA [id number] [place] [address] [place] Calcium [Mass/Vol] 9.7 mg/dL Normal 8.5-10.2 [facility] Comment on above: Order Comment: Speci men Type: BLOOD SPECIMENOrdering Facility: [facility] Address: [address] [place] [address] Performed By: #### 2 4321-2 ####[facility]ORATORYCLIA [id number] [place] [address] [place] Chloride [Moles/Vol] 105 mmol/L Normal 97-105 [facility] Comment on above: Order Comment: Speci men Type: BLOOD SPECIMENOrdering Facility: [facility] Address: [address] [place] [address] Performed By: #### 2 4321-2 ####[facility]ORATORYCLIA [id number] [place] [address] [place] CO2 [Moles/Vol] 28 mmol/L Normal 22-30 [facility] Comment on above: Order Comment: Speci men Type: BLOOD SPECIMENOrdering Facility: [facility] Address: [address] [address] Performed By: #### 2 4321-2 ####[facility]ORATORYCLIA [id number] [address] STATES OF [facility] Creatinine [Mass/Vol] 0.78 mg/dL Normal 0.73-1.22 [facility] Comment on above: Order Comment: Speci men Type: BLOOD SPECIMENOrdering Facility: [facility] Address: [address] [place] [address] Performed By: #### 2 4321-2 ####[facility]ITAL[facility] [id number] [address] ESTIMATED GLOMERULAR FILTRATION RATE 97 mL/min/1.73m??? Normal >=60 [facility] Comment on above: Order Comment: Speci men Type: BLOOD SPECIMENOrdering Facility: [facility] Address: [address] [place] [address] Result Comment: Luzmaria mated Glomerular Filtration Rate [...] By: #### 2 4321-2 ####[facility]ORATORYCLIA [id number] [address] [place] Glucose [Mass/Vol] 127 mg/dL High 74-99 [facility] Comment on above: Order Comment: Speci francia Type: BLOOD SPECIMENOrdering Facility: [facility] Address: [address] [address] Result Comment: The [place] [employer] (ADA) provides guidance for cutoff [...] Standards of Medical Care in Diabetes 2016, [place] [employer]. Diabetes Care. 2016.39(Suppl 1). Performed By: #### 2 4321-2 ####[facility]ORATORYCLIA [id number] [place] [address] [place] Potassium [Moles/Vol] 4.3 mmol/L Normal 3.7-5.1 [facility] Comment on above: Order Comment: Shira feldman Type: BLOOD SPECIMENOrdering Facility: [facility] Address: [address] [place] [address] Performed By: #### 2 4321-2 ####[facility] [id number] [place] [address] [place] Sodium [Moles/Vol] 145 mmol/L High 136-144 [facility] Comment on above: Order Comment: Shira feldman Type: BLOOD SPECIMENOrdering Facility: [facility] Address: [address] [place] [address] Performed By: #### 2 4321-2 ####[facility] [id number] [place] [address] [place] Urea nitrogen [Mass/Vol] 37 mg/dL High 9-24 [facility] Comment on above: Order Comment: Shira feldman Type: BLOOD SPECIMENOrdering Facility: [facility] Address: [address] [place] [address] Performed By: #### 2 4321-2 ####[facility]ORATORYCLIA [id number] [place] [address] [place] C diff Tox gens Stl Ql MEGAN+p robeon 07-23-2021 C. difficile toxin genes MEGAN+probe Ql (Stl) Negative Normal Negative for C. difficile toxin by PCR [facility] Comment on above: Order Comment: Speci men Type: STOOL SPECIMENOrdering Facility: [facility] Address: [address] [place] [address] Performed By: #### 5 4067-4 ####[facility]ORATORYCLIA [id number] [address] STATES OF [facility] CBC W Auto Differential pane l (Bld)on 07-23-2021 Basophils (Bld) [#/Vol] 0.07 10*3/uL Normal <0.11 [facility] Comment on above: Order Comment: Speci men Type: BLOOD SPECIMENOrdering Facility: [facility] Address: [address] [place] [address] Performed By: #### 5 7021-8 ####[facility]ORATORYCLIA [id number] [address] [place] Basophils/100 WBC (Bld) 0.5 % Normal [facility] Comment on above: Order Comment: Speci men Type: BLOOD SPECIMENOrdering Facility: [facility] Address: [address] [place] [address] Performed By: #### 5 7021-8 ####[facility]ORATORYCLIA [id number] [address] Differential cell count method Nom (Bld) Auto Normal [facility] Comment on above: Order Comment: Speci men Type: BLOOD SPECIMENOrdering Facility: [facility] Address: [address] [place] [address] Performed By: #### 5 7021-8 ####[facility] LABORATORYCLIA [id number] [place] [address] [place] Eosinophils (Bld) [#/Vol] 10*3/uL Normal <0.46 [facility] Comment on above: Order Comment: Speci men Type: BLOOD SPECIMENOrdering Facility: [facility] Address: [address] [place] [address] Performed By: #### 5 7021-8 ####[facility]ATORYCLIA [id number] [address] [place] Eosinophils/100 WBC (Bld) 0.2 % Normal [facility] Comment on above: Order Comment: Speci men Type: BLOOD SPECIMENOrdering Facility: [facility] Address: [address] [place] [address] Performed By: #### 5 7021-8 ####[facility] LABORATORYCLIA [id number] [address] Erythrocyte distribution width (RBC) [Ratio] 16.7 % High 11.5-15.0 [facility] Comment on above: Order Comment: Speci men Type: BLOOD SPECIMENOrdering Facility: [facility] Address: [address] [place] [address] Performed By: #### 5 7021-8 ####[facility] LABORATORYCLIA [id number] [address] Hematocrit (Bld) [Volume fraction] 32.8 % Low 39.0-51.0 [facility] Comment on above: Order Comment: Speci men Type: BLOOD SPECIMENOrdering Facility: [facility] Address: [address] [place] [address] Performed By: #### 5 7021-8 ####[facility] LABORATORYCLIA [id number] [address] [place] Hemoglobin (Bld) [Mass/Vol] 9.7 g/dL Low 13.0-17.0 [facility] Comment on above: Order Comment: Speci men Type: BLOOD SPECIMENOrdering Facility: [facility] Address: [address] [place] [address] Performed By: #### 5 7021-8 ####[facility]ATORYCLIA [id number] [address] IMMATURE GRAN % 0.7 % Normal [facility] Comment on above: Order Comment: Speci men Type: BLOOD SPECIMENOrdering Facility: [facility] Address: [address] [address] Performed By: #### 5 7021-8 ####[facility] LABORATORYCLIA [id number] [address] IMMATURE GRAN ABS 0.09 k/uL Normal <0.10 [facility] Comment on above: Order Comment: Speci men Type: BLOOD SPECIMENOrdering Facility: [facility] Address: [address] [place] [address] Performed By: #### 5 7021-8 ####[facility] LABORATORYCLIA [id number] [address] Lymphocytes (Bld) [#/Vol] 1.94 10*3/uL Normal 1.00-4.00 [facility] Comment on above: Order Comment: Speci men Type: BLOOD SPECIMENOrdering Facility: [facility] Address: [address] [place] [address] Performed By: #### 5 7021-8 ####[facility]ORATORYCLIA [id number] [address] Lymphocytes/100 WBC (Bld) 14.6 % Normal [facility] Comment on above: Order Comment: Speci men Type: BLOOD SPECIMENOrdering Facility: [facility] Address: [address] [place] [address] Performed By: #### 5 7021-8 ####[facility]ORATORYCLIA [id number] [address] MCH (RBC) [Entitic mass] 27.2 pg Normal 26.0-34.0 [facility] Comment on above: Order Comment: Speci men Type: BLOOD SPECIMENOrdering Facility: [facility] Address: [address] [place] [address] Performed By: #### 5 7021-8 ####[facility]ORATORYCLIA [id number] [address] MCHC (RBC) [Mass/Vol] 29.6 g/dL Low 30.5-36.0 [facility] Comment on above: Order Comment: Speci men Type: BLOOD SPECIMENOrdering Facility: [facility] Address: [address] [place] [address] Performed By: #### 5 7021-8 ####[facility]ORATORYCLIA [id number] [address] [place] MCV (RBC) [Entitic vol] 92.1 fL Normal 80.0-100.0 [facility] Comment on above: Order Comment: Speci men Type: BLOOD SPECIMENOrdering Facility: [facility] Address: [address] [place] [address] Performed By: #### 5 7021-8 ####[facility]ORATORYCLIA [id number] [address] [place] Monocytes (Bld) [#/Vol] 0.74 10*3/uL Normal <0.87 [facility] Comment on above: Order Comment: Speci men Type: BLOOD SPECIMENOrdering Facility: [facility] Address: [address] [place] [address] Performed By: #### 5 7021-8 ####[facility]ORATORYCLIA [id number] [address] [place] Monocytes/100 WBC (Bld) 5.6 % Normal [facility] Comment on above: Order Comment: Speci men Type: BLOOD SPECIMENOrdering Facility: [facility] Address: [address] [place] [address] Performed By: #### 5 7021-8 ####[facility]ORATORYCLIA [id number] [address] [place] Neutrophils (Bld) [#/Vol] 10.43 10*3/uL High 1.45-7.50 [facility] Comment on above: Order Comment: Speci men Type: BLOOD SPECIMENOrdering Facility: [facility] Address: [address] [place] [address] Performed By: #### 5 7021-8 ####[facility]ORATORYCLIA [id number] [address] [place] Neutrophils/100 WBC (Bld) 78.4 % Normal [facility] Comment on above: Order Comment: Speci men Type: BLOOD SPECIMENOrdering Facility: [facility] Address: [address] [address] Performed By: #### 5 7021-8 ####[facility]ORATORYCLIA [id number] [address] [place] Nucleated RBC (Bld) [#/Vol] 10*3/uL Normal <0.01 [facility] Comment on above: Order Comment: Speci men Type: BLOOD SPECIMENOrdering Facility: [facility] Address: [address] [place] [address] Performed By: #### 5 7021-8 ####[facility]ORATORYCLIA [id number] [address] Nucleated RBC/100 WBC (Bld) [Ratio] 0.0 /100 WBC Normal [facility] Comment on above: Order Comment: Speci men Type: BLOOD SPECIMENOrdering Facility: [facility] Address: [address] [place] [address] Performed By: #### 5 7021-8 ####[facility]ORATORYCLIA [id number] [address] [place] Platelet mean volume (Bld) [Entitic vol] 11.0 fL Normal 9.0-12.7 [facility] Comment on above: Order Comment: Speci men Type: BLOOD SPECIMENOrdering Facility: [facility] Address: [address] [address] Performed By: #### 5 7021-8 ####[facility]ORATORYCLIA [id number] [address] [place] Platelets (Bld) [#/Vol] 381 10*3/uL Normal 150-400 [facility] Comment on above: Order Comment: Speci men Type: BLOOD SPECIMENOrdering Facility: [facility] Address: [address] [place], [place] [address] Performed By: #### 5 7021-8 ####[facility] LABORATORYCLIA [id number] [address] [place] RBC (Bld) [#/Vol] 3.56 10*6/uL Low 4.20-6.00 [facility] Comment on above: Order Comment: Speci men Type: BLOOD SPECIMENOrdering Facility: [facility] Address: [address] [place] [address] Performed By: #### 5 7021-8 ####[facility]ORATORYCLIA [id number] [address] STATES OF [facility] WBC (Bld) [#/Vol] 13.29 10*3/uL High 3.70-11.00 [facility] Comment on above: Order Comment: Speci men Type: BLOOD SPECIMENOrdering Facility: [facility] Address: [address] [place] [address] Performed By: #### 5 7021-8 ####[facility]ORATORYCLIA [id number] [address] OF [facility] CONSULT PROGon 07-23-2021 CONSULT PROG Normal [facility] CONSULT PROG Normal [facility] CSF MANUAL DIFFon 07-23-2021 DIF TTL, CSF 100 cells counted Normal [facility] Comment on above: Order Comment: Speci men Type: CEREBROSPINAL FLUIDOrdering Facility: [facility] Address: [address] [place] [address] Performed By: #### L [id number], QNG5980, 80807-8 ####[facility]ORATORYCLIA [id number] [address] [place] LYMPH%, CSF 2 % Low 50-90 [facility] Comment on above: Order Comment: Speci men Type: CEREBROSPINAL FLUIDOrdering Facility: [facility] Address: [address] [place] [address] Performed By: #### L [id number], OOM3420, 08801-6 ####[facility]ORATORYCLIA [id number] [address] [place] MONO%, CSF 9 % Low 10-50 [facility] Comment on above: Order Comment: Speci men Type: CEREBROSPINAL FLUIDOrdering Facility: [facility] Address: [address] [place] [address] Performed By: #### L HW8825, CEP1211, 11479-9 ####[facility]ATORYCLIA [id number] [address] [place] NEUT%, CSF 89 % High 0-3 [facility] Comment on above: Order Comment: Speci men Type: CEREBROSPINAL FLUIDOrdering Facility: [facility] Address: [address] [place] [address] Performed By: #### L [id number], GYS6043, 20409-8 ####[facility]ORATORYCLIA [id number] [address] CSF PATHOLOGIST INTERP (LAB REFLEX ORDER-NO BILL)on 07-23-2021 CSF STAFF REVIEW Negative for maligna nt cells. Numerous bacterial organisms present, cocci in pairs and chains. Recommend correlation with CSF culture results. Normal [facility] Comment on above: Order Comment: Speci men Type: CEREBROSPINAL FLUIDOrdering Facility: [facility] Address: [address] [place] [address] Performed By: #### L [id number], KJC5668, 28526-1 ####[facility]ORATORYCLIA [id number] [address] Pathologist name Reviewed by Amador Stevens MD [facility] Comment on above: Order Comment: Speci men Type: CEREBROSPINAL FLUIDOrdering Facility: [facility] Address: [address] [place] [address] Performed By: #### L [id number], ZPR3426, 71645-3 ####[facility]ORATORYCLIA [id number] [address] OF [place] CT BRAIN WO IVCONon 03-19-[address] BRAIN WO IVCON Normal [facility] Cell count panel (CSF)on Clarity (CSF) Clear Normal Clear [facility] Comment on above: Order Comment: Speci men Type: CEREBROSPINAL FLUIDOrdering Facility: [facility] Address: [address] [place] [address] Performed By: #### L AH9972, XZB5836, 46539-1 ####[facility]ORATORYCLIA [id number] [address] Clarity (Unsp spec) Not Indicated Normal Clear [facility] Comment on above: Order Comment: Speci men Type: CEREBROSPINAL FLUIDOrdering Facility: [facility] Address: [address] [place] [address] Performed By: #### L WW7424, OEX0624, 01815-2 ####[facility]ATORYCLIA [id number] [address] Color (CSF) Colorless Normal Colorless [facility] Comment on above: Order Comment: Speci men Type: CEREBROSPINAL FLUIDOrdering Facility: [facility] Address: [address] [place] [address] Performed By: #### L ZB2394, HAK9140, 90263-7 ####[facility]ORATORYCLIA [id number] [address] Color (Spun CSF) Not Indicated Normal Colorless [facility] Comment on above: Order Comment: Speci men Type: CEREBROSPINAL FLUIDOrdering Facility: [facility] Address: [address] [place] [address] Performed By: #### L YT0927, IFV5265, 59788-5 ####[facility]ATORYCLIA [id number] [address] CSF TUBE NUMBER [employer] Normal [facility] Comment on above: Order Comment: Speci men Type: CEREBROSPINAL FLUIDOrdering Facility: [facility] Address: [address] [place] [address] Performed By: #### L [id number], FBH3303, 89284-2 ####[facility]ORATORYCLIA [id number] [address] RBC Manual cnt (CSF) [#/Vol] 7 cells/uL High 0-5 [facility] Comment on above: Order Comment: Speci men Type: CEREBROSPINAL FLUIDOrdering Facility: [facility] Address: [address] [place] [address] Performed By: #### L FT9846, UWF1715, 36507-0 ####[facility]ORATORYCLIA [id number] [address] WBC Manual cnt (CSF) [#/Vol] 193 cells/uL High 0-5 [facility] Comment on above: Order Comment: Speci men Type: CEREBROSPINAL FLUIDOrdering Facility: [facility] Address: [address] [place] [address] Performed By: #### L RY3730, PEX5950, 66222-8 ####[facility]ITALCLIA [id number] [address] Glucose CSF-mCncon 2 Glucose (CSF) [Mass/Vol] 81 mg/dL High 40-70 [facility] Comment on above: Order Comment: Speci men Type: CEREBROSPINAL FLUIDOrdering Facility: [facility] Address: [address] [place] [address] Result Comment: Lumb ar CSF glucose values of healthy patients are approximately 60% of the plasma values and must always be compared with a concurrently measured plasma value for adequate clinical interpretation.References: 1. Glucose HK (GLUC3) [package insert V 12.0 [place]uvian]. [employer], [place], [place]. September 2015. 2. Teresa H., He, H. (2015). Chapter 7: Glucose and Lactate. Marianela Rothman.(eds.), Cerebrospinal Fluid in Clinical Neurology. [place]: [employer]. Performed By: #### 2 342-4, 2880-3 ####[facility]ORATORYCLIA [id number] [address] NURSING PROGon 07-23-2021 NURSING PROG Normal [facility] NURSING PROG Normal [facility] Prot CSF-mCncon 07-23-2021 Protein (CSF) [Mass/Vol] 68 mg/dL High 15-45 [facility] Comment on above: Order Comment: Speci men Type: CEREBROSPINAL FLUIDOrdering Facility: [facility] Address: [address] [place] [address] Performed By: #### 2 342-4, 2880-3 ####[facility]ORATORYCLIA [id number] [address] Urinalysis complete panel (U )on 07-23-2021 Bilirubin Ql (U) Negative Normal Negative [facility] Comment on above: Order Comment: Speci men Type: URINE SPECIMENOrdering Facility: [facility] Address: [address] [place] [address] Performed By: #### 2 4356-8 ####[facility]ORATORYCLIA [id number] [address] [place] Clarity (Unsp spec) Clear Normal Clear [facility] Comment on above: Order Comment: Speci men Type: URINE SPECIMENOrdering Facility: [facility] Address: [address] [place] [address] Performed By: #### 2 4356-8 ####[facility]ORATORYCLIA [id number] [address] Color (U) Light Yellow Normal yellow [facility] Comment on above: Order Comment: Speci men Type: URINE SPECIMENOrdering Facility: [facility] Address: [address] [place] [address] Performed By: #### 2 4356-8 ####[facility]ORATORYCLIA [id number] [address] Glucose Test strip (U) [Mass/Vol] Negative Normal Negative [facility] Comment on above: Order Comment: Speci men Type: URINE SPECIMENOrdering Facility: [facility] Address: [address] [place], [place] [address] Performed By: #### 2 4356-8 ####[facility] LABORATORYCLIA [id number] [address] Hemoglobin Ql (U) Negative Normal Negative [facility] Comment on above: Order Comment: Speci men Type: URINE SPECIMENOrdering Facility: [facility] Address: [address] [address] Performed By: #### 2 4356-8 ####[facility] LABORATORYCLIA [id number] [address] STATES OF [facility] Ketones Ql (U) Negative Normal Negative [facility] Comment on above: Order Comment: Speci men Type: URINE SPECIMENOrdering Facility: [facility] Address: [facility] [address] Performed By: #### 2 4356-8 ####[facility]ORATORYCLIA [id number] [address] Leukocyte esterase Test strip Ql (U) Negative Normal Negative [facility] Comment on above: Order Comment: Speci men Type: URINE SPECIMENOrdering Facility: [facility] Address: [address] [address] Performed By: #### 2 4356-8 ####[facility]ATORYCLIA [id number] [address] Nitrite Ql (U) Negative Normal Negative [facility] Comment on above: Order Comment: Speci men Type: URINE SPECIMENOrdering Facility: [facility] Address: [address] [address] Performed By: #### 2 4356-8 ####[facility]ATORYCLIA [id number] [address] pH (U) 6.0 [pH] Normal 5.0-8.0 [facility] Comment on above: Order Comment: Speci men Type: URINE SPECIMENOrdering Facility: [facility] Address: [address] [address] Performed By: #### 2 4356-8 ####[facility]ORATORYCLIA [id number] [address] Protein (U) [Mass/Vol] 1+ Abnormal Negative [facility] Comment on above: Order Comment: Speci men Type: URINE SPECIMENOrdering Facility: [facility] Address: [address] [place] [address] Performed By: #### 2 4356-8 ####[facility]ORATORYCLIA [id number] [address] RBC LM.HPF (Urine sed) [#/Area] 0-3 /HPF Normal 0-3 /HPF [facility] Comment on above: Order Comment: Speci men Type: URINE SPECIMENOrdering Facility: [facility] Address: [address] [place] [address] Performed By: #### 2 4356-8 ####[facility]ORATORYCLIA [id number] [address] Specific gravity (U) [Rel density] 1.018 Normal 1.005-1.030 [facility] Comment on above: Order Comment: Speci men Type: URINE SPECIMENOrdering Facility: [facility] Address: [address] [place] [address] Performed By: #### 2 4356-8 ####[facility]ORATORYCLIA [id number] [address] Urobilinogen Ql (U) Normal Normal Negative [facility] Comment on above: Order Comment: Speci men Type: URINE SPECIMENOrdering Facility: [facility] Address: [address] [place] [address] Performed By: #### 2 4356-8 ####[facility]ATORYCLIA [id number] [address] WBC LM.HPF (Urine sed) [#/Area] 0-5 /HPF Normal 0-5 /HPF [facility] Comment on above: Order Comment: Speci men Type: URINE SPECIMENOrdering Facility: [facility] Address: [address] [place] [address] Performed By: #### 2 4356-8 ####[facility]ORATORYCLIA [id number] [address] Vancomycin random [Mass/Vol] on 07-23-2021 Vancomycin [Mass/Vol] 12.9 ug/mL Normal 10.0-20.0 [facility] Comment on above: Order Comment: Speci men Type: BLOOD SPECIMENOrdering Facility: [facility] Address: [address] [place] [address] Result Comment: Refe rence ranges and high/low indicator flags are provided as general guidelines only. The treating physician must determine appropriate target levels/dosing based on the specific clinical situation. Performed By: #### 4 091-5 ####[facility]ORATORYCLIA [id number] [address] STATES OF [facility] XR CHEST 1V FRONTALon 2021 XR CHEST 1V FRONTAL Normal [facility] XR CHEST 1V FRONTAL Normal [facility] aPTT PPPon 07-23-2021 aPTT Coag (PPP) [Time] 32.3 s Normal 23.0-32.4 [facility] Comment on above: Order Comment: Speci men Type: BLOOD SPECIMENOrdering Facility: [facility] Address: [address] [place] [address] Performed By: #### 1 4979-9 ####[facility] LABORATORYCLIA [id number] [address] STATES OF [facility] aPTT Coag (PPP) [Time] 57.9 s High 23.0-32.4 [facility] Comment on above: Order Comment: Speci men Type: BLOOD SPECIMENOrdering Facility: [facility] Address: [address] [place] [address] Performed By: #### 1 4979-9 ####[facility]ORATORYCLIA [id number] [address] aPTT Coag (PPP) [Time] 46.3 s High 23.0-32.4 [facility] Comment on above: Order Comment: Speci men Type: BLOOD SPECIMENOrdering Facility: [facility] Address: [address] [place] [address] Performed By: #### 1 4979-9 ####[facility] LABORATORYCLIA [id number] [place] [address] [place] Basic metabolic 2000 panelon 07-22-2021 Anion gap [Moles/Vol] 8 mmol/L Low -18 [facility] Comment on above: Order Comment: Speci men Type: BLOOD SPECIMENOrdering Facility: [facility] Address: [address] [place] [address] Performed By: #### 2 4321-2 ####[facility] LABORATORYCLIA [id number] [place] [address] [place] Calcium [Mass/Vol] 9.5 mg/dL Normal 8.5-10.2 [facility] Comment on above: Order Comment: Speci men Type: BLOOD SPECIMENOrdering Facility: [facility] Address: [address] [place] [address] Performed By: #### 2 4321-2 ####[facility] LABORATORYCLIA [id number] [address] [place] Chloride [Moles/Vol] 105 mmol/L Normal 97-105 [facility] Comment on above: Order Comment: Speci men Type: BLOOD SPECIMENOrdering Facility: [facility] Address: [address] [place] [address] Performed By: #### 2 4321-2 ####[facility]ORATORYCLIA [id number] [place] [address] [place] CO2 [Moles/Vol] 32 mmol/L High 22-30 [facility] Comment on above: Order Comment: Speci men Type: BLOOD SPECIMENOrdering Facility: [facility] Address: [address] [place] [address] Performed By: #### 2 4321-2 ####[facility] LABORATORYCLIA [id number] [address] STATES OF [facility] Creatinine [Mass/Vol] 0.75 mg/dL Normal 0.73-1.22 [facility] Comment on above: Order Comment: Johncara feldman Type: BLOOD SPECIMENOrdering Facility: [facility] Address: [address] [place] [address] Performed By: #### 2 4321-2 ####[facility]ORATORYCLIA [id number] [address] ESTIMATED GLOMERULAR FILTRATION RATE 98 mL/min/1.73m??? Normal >=60 [facility] Comment on above: Order Comment: Shira feldman Type: BLOOD SPECIMENOrdering Facility: [facility] Address: [address] [place] [address] Result Comment: Luzmaria mated Glomerular Filtration Rate [...] Performed By: #### 2 4321-2 ####[facility] [id number] [address] Glucose [Mass/Vol] 128 mg/dL High 74-99 [facility] Comment on above: Order Comment: Shira francia Type: BLOOD SPECIMENOrdering Facility: [facility] Address: [address] [place] [address] Result Comment: The [place] [employer] (ADA) provides guidance for cutoff [...] Standards of Medical Care in Diabetes 2016, [place] [employer]. Diabetes Care. 2016.39(Suppl 1). Performed By: #### 2 4321-2 ####[facility] LABORATORYCLIA [id number] [address] OF [facility] Potassium [Moles/Vol] 3.7 mmol/L Normal 3.7-5.1 [facility] Comment on above: Order Comment: Speci men Type: BLOOD SPECIMENOrdering Facility: [facility] Address: [address] [place] [address] Performed By: #### 2 4321-2 ####[facility]ORATORYCLIA [id number] [address] Sodium [Moles/Vol] 145 mmol/L High 136-144 [facility] Comment on above: Order Comment: Speci men Type: BLOOD SPECIMENOrdering Facility: [facility] Address: [address] [place] [address] Performed By: #### 2 4321-2 ####[facility] LABORATORYCLIA [id number] [address] Urea nitrogen [Mass/Vol] 39 mg/dL High 9-24 [facility] Comment on above: Order Comment: Speci men Type: BLOOD SPECIMENOrdering Facility: [facility] Address: [address] [place] [address] Performed By: #### 2 4321-2 ####[facility] LABORATORYCLIA [id number] [address] [place] CASE MANAGEMon 07-22-2021 CASE MANAGEM Normal [facility] CBC W Auto Differential pane l (Bld)on 07-22-2021 Basophils (Bld) [#/Vol] 0.06 10*3/uL Normal <0.11 [facility] Comment on above: Order Comment: Speci men Type: BLOOD SPECIMENOrdering Facility: [facility] Address: [address] [place], [place] [address] Performed By: #### 5 7021-8 ####[facility]ORATORYCLIA [id number] [address] STATES [facility] Basophils/100 WBC (Bld) 0.5 % Normal [facility] Comment on above: Order Comment: Speci men Type: BLOOD SPECIMENOrdering Facility: [facility] Address: [address] [place] [address] Performed By: #### 5 7021-8 ####[facility]ORATORYCLIA [id number] [address] [place] Differential cell count method Nom (Bld) Auto Normal [facility] Comment on above: Order Comment: Speci men Type: BLOOD SPECIMENOrdering Facility: [facility] Address: [address] [place] [address] Performed By: #### 5 7021-8 ####[facility]ORATORYCLIA [id number] [address] [place] Eosinophils (Bld) [#/Vol] 0.44 10*3/uL Normal <0.46 [facility] Comment on above: Order Comment: Speci men Type: BLOOD SPECIMENOrdering Facility: [facility] Address: [address] [place] [address] Performed By: #### 5 7021-8 ####[facility]ORYCLIA [id number] [address] Eosinophils/100 WBC (Bld) 3.9 % Normal [facility] Comment on above: Order Comment: Speci men Type: BLOOD SPECIMENOrdering Facility: [facility] Address: [address] [place] [address] Performed By: #### 5 7021-8 ####[facility]ATORYCLIA [id number] [address] [place] Erythrocyte distribution width (RBC) [Ratio] 17.0 % High 11.5-15.0 [facility] Comment on above: Order Comment: Speci men Type: BLOOD SPECIMENOrdering Facility: [facility] Address: [address] [address] Performed By: #### 5 7021-8 ####[facility]ORATORYCLIA [id number] [address] Hematocrit (Bld) [Volume fraction] 32.0 % Low 39.0-51.0 [facility] Comment on above: Order Comment: Speci men Type: BLOOD SPECIMENOrdering Facility: [facility] Address: [address] [place] [address] Performed By: #### 5 7021-8 ####[facility] LABORATORYCLIA [id number] [address] Hemoglobin (Bld) [Mass/Vol] 9.3 g/dL Low 13.0-17.0 [facility] Comment on above: Order Comment: Speci men Type: BLOOD SPECIMENOrdering Facility: [facility] Address: [address] [place] [address] Performed By: #### 5 7021-8 ####[facility] LABORATORYCLIA [id number] [address] IMMATURE GRAN % 0.5 % Normal [facility] Comment on above: Order Comment: Speci men Type: BLOOD SPECIMENOrdering Facility: [facility] Address: [address] [place] [address] Performed By: #### 5 7021-8 ####[facility] LABORATORYCLIA [id number] [address] IMMATURE GRAN ABS 0.06 k/uL Normal <0.10 [facility] Comment on above: Order Comment: Speci men Type: BLOOD SPECIMENOrdering Facility: [facility] Address: [address] [place] [address] Performed By: #### 5 7021-8 ####[facility] LABORATORYCLIA [id number] [address] OF [facility] Lymphocytes (Bld) [#/Vol] 1.83 10*3/uL Normal 1.00-4.00 [facility] Comment on above: Order Comment: Speci men Type: BLOOD SPECIMENOrdering Facility: [facility] Address: [address] [place] [address] Performed By: #### 5 7021-8 ####[facility]ORATORYCLIA [id number] [address] Lymphocytes/100 WBC (Bld) 16.1 % Normal [facility] Comment on above: Order Comment: Speci men Type: BLOOD SPECIMENOrdering Facility: [facility] Address: [address] [place] [address] Performed By: #### 5 7021-8 ####[facility] LABORATORYCLIA [id number] [address] MCH (RBC) [Entitic mass] 27.0 pg Normal 26.0-34.0 [facility] Comment on above: Order Comment: Speci men Type: BLOOD SPECIMENOrdering Facility: [facility] Address: [address] [place] [address] Performed By: #### 5 7021-8 ####[facility]ORATORYCLIA [id number] [address] STATES OF [facility] MCHC (RBC) [Mass/Vol] 29.1 g/dL Low 30.5-36.0 [facility] Comment on above: Order Comment: Speci men Type: BLOOD SPECIMENOrdering Facility: [facility] Address: [address] [place] [address] Performed By: #### 5 7021-8 ####[facility] LABORATORYCLIA [id number] [address] STATES OF [facility] MCV (RBC) [Entitic vol] 92.8 fL Normal 80.0-100.0 [facility] Comment on above: Order Comment: Speci men Type: BLOOD SPECIMENOrdering Facility: [facility] Address: [address] [place] [address] Performed By: #### 5 7021-8 ####[facility] LABORATORYCLIA [id number] [address] [place] Monocytes (Bld) [#/Vol] 0.87 10*3/uL High <0.87 [facility] Comment on above: Order Comment: Speci men Type: BLOOD SPECIMENOrdering Facility: [facility] Address: [address] [place] [address] Performed By: #### 5 7021-8 ####[facility] LABORATORYCLIA [id number] [address] [place] Monocytes/100 WBC (Bld) 7.6 % Normal [facility] Comment on above: Order Comment: Speci men Type: BLOOD SPECIMENOrdering Facility: [facility] Address: [address] [place] [address] Performed By: #### 5 7021-8 ####[facility] LABORATORYCLIA [id number] [address] [place] Neutrophils (Bld) [#/Vol] 8.12 10*3/uL High 1.45-7.50 [facility] Comment on above: Order Comment: Speci men Type: BLOOD SPECIMENOrdering Facility: [facility] Address: [address] [place] [address] Performed By: #### 5 7021-8 ####[facility]ORATORYCLIA [id number] [address] [place] Neutrophils/100 WBC (Bld) 71.4 % Normal [facility] Comment on above: Order Comment: Speci men Type: BLOOD SPECIMENOrdering Facility: [facility] Address: [address] [place] [address] Performed By: #### 5 7021-8 ####[facility] LABORATORYCLIA [id number] [address] [place] Nucleated RBC (Bld) [#/Vol] 10*3/uL Normal <0.01 [facility] Comment on above: Order Comment: Speci men Type: BLOOD SPECIMENOrdering Facility: [facility] Address: [address] [place] [address] Performed By: #### 5 7021-8 ####[facility]ORATORYCLIA [id number] [address] [place] Nucleated RBC/100 WBC (Bld) [Ratio] 0.0 /100 WBC Normal [facility] Comment on above: Order Comment: Speci men Type: BLOOD SPECIMENOrdering Facility: [facility] Address: [address] [place] [address] Performed By: #### 5 7021-8 ####[facility]ORATORYCLIA [id number] [address] [place] Platelet mean volume (Bld) [Entitic vol] 10.8 fL Normal 9.0-12.7 [facility] Comment on above: Order Comment: Speci men Type: BLOOD SPECIMENOrdering Facility: [facility] Address: [address] [place] [address] Performed By: #### 5 7021-8 ####[facility] LABORATORYCLIA [id number] [address] [place] Platelets (Bld) [#/Vol] 362 10*3/uL Normal 150-400 [facility] Comment on above: Order Comment: Speci men Type: BLOOD SPECIMENOrdering Facility: [facility] Address: [address] [place] [address] Performed By: #### 5 7021-8 ####[facility]ORATORYCLIA [id number] [address] [place] RBC (Bld) [#/Vol] 3.45 10*6/uL Low 4.20-6.00 [facility] Comment on above: Order Comment: Speci men Type: BLOOD SPECIMENOrdering Facility: [facility] Address: [address] [place] [address] Performed By: #### 5 7021-8 ####[facility] LABORATORYCLIA [id number] [address] [place] WBC (Bld) [#/Vol] 11.38 10*3/uL High 3.70-11.00 [facility] Comment on above: Order Comment: Speci men Type: BLOOD SPECIMENOrdering Facility: [facility] Address: [address] [place] [address] Performed By: #### 5 7021-8 ####[facility]ORATORYCLIA [id number] [address] [place] Magnesium SerPl-mCncon 07-22 Magnesium [Mass/Vol] 2.3 mg/dL Normal 1.7-2.3 [facility] Comment on above: Order Comment: Speci men Type: BLOOD SPECIMENOrdering Facility: [facility] Address: [address] [place] [address] Performed By: #### 1 9123-9, 2777-1, 39182-1 ####[facility]ORATORYCLIA [id number] [address] [place] NT-proBNP SerPl-ncon 07-22 Natriuretic peptide.B prohormone N-Terminal [Mass/Vol] 328 pg/mL High <125 [facility] Comment on above: Order Comment: Speci men Type: BLOOD SPECIMENOrdering Facility: [facility] Address: [address] [place] [address] Performed By: #### 1 9123-9, 2777-1, 16820-9 ####[facility]ORATORYCLIA [id number] [address] [place] NURSING PROGon 07-22-2021 NURSING PROG Normal [facility] NUTRITIONon 07-22-2021 NUTRITION Normal [facility] Phosphate SerPl-mCncon 07-22 Phosphate [Mass/Vol] 3.5 mg/dL Normal 2.7-4.8 [facility] Comment on above: Order Comment: Speci men Type: BLOOD SPECIMENOrdering Facility: [facility] Address: [address] [place] [address] Performed By: #### 1 9123-9, 2777-1, 97069-7 ####[facility]ORATORYCLIA [id number] [address] [place] THERAPY NTon 07-22-2021 THERAPY NT Normal [facility] THERAPY NT Normal [facility] aPTT PPPon 07-22-2021 aPTT Coag (PPP) [Time] 50.1 s High 23.0-32.4 [facility] Comment on above: Order Comment: Speci men Type: BLOOD SPECIMENOrdering Facility: [facility] Address: [address] [place] [address] Performed By: #### 1 4979-9 ####[facility]ORATORYCLIA [id number] [address] STATES OF [facility] ALLIED HEALTHon 07-21-2021 ALLIED HEALTH Normal [facility] Bacteria Spec Resp Culton Bacteria identified Respiratory culture Nom (Unsp spec) Abnormal [facility] Comment on above: Performed By: #### 3 2355-0 ####[facility]ORATORYCLIA [id number] [place] [address] [place] Basic metabolic 2000 panelon 07-21-2021 Anion gap [Moles/Vol] 9 mmol/L Normal 9-18 [facility] Comment on above: Order Comment: Speci men Type: BLOOD SPECIMENOrdering Facility: [facility] Address: [address] [place] [address] Performed By: #### 1 9123-9, 2777-1, 45010-5 ####[facility]ORATORYCLIA [id number] [address] [place] Calcium [Mass/Vol] 9.9 mg/dL Normal 8.5-10.2 [facility] Comment on above: Order Comment: Speci men Type: BLOOD SPECIMENOrdering Facility: [facility] Address: [address] [place] [address] Performed By: #### 1 9123-9, 2777-1, 50335-3 ####[facility]ORATORYCLIA [id number] [place] [address] [place] Chloride [Moles/Vol] 103 mmol/L Normal 97-105 [facility] Comment on above: Order Comment: Speci men Type: BLOOD SPECIMENOrdering Facility: [facility] Address: [address] [place] [address] Performed By: #### 1 9123-9, 2777, 43580-7 ####[facility]ORATORYCLIA [id number] [address] [place] CO2 [Moles/Vol] 33 mmol/L High 22-30 [facility] Comment on above: Order Comment: Speci men Type: BLOOD SPECIMENOrdering Facility: [facility] Address: [address] [place] [address] Performed By: #### 1 9123-9, 27711-04, 90455-3 ####[facility]ORATORYCLIA [id number] [address] STATES OF [facility] Creatinine [Mass/Vol] 0.80 mg/dL Normal 0.73-1.22 [facility] Comment on above: Order Comment: Speci men Type: BLOOD SPECIMENOrdering Facility: [facility] Address: [address] [place] [address] Performed By: #### 1 9123-9, 27711-04, 33826-8 ####[facility]ORATORYCLIA [id number] [address] ESTIMATED GLOMERULAR FILTRATION RATE 96 mL/min/1.73m??? Normal >=60 [facility] Comment on above: Order Comment: Speci men Type: BLOOD SPECIMENOrdering Facility: [facility] Address: [address] [place] [address] Result Comment: Luzmaria mated Glomerular Filtration Rate [...] GFR. Performed By: #### 1 9123-9, 2777-, 04081-6 ####[facility] LABORATORYCLIA [id number] [place] [address] [place] Glucose [Mass/Vol] 148 mg/dL High 74-99 [facility] Comment on above: Order Comment: Speci men Type: BLOOD SPECIMENOrdering Facility: [facility] Address: [address] [place] [address] Result Comment: The [place] [employer] (ADA) provides guidance for cutoff [...] Standards of Medical Care in Diabetes 2016, [place] [employer]. Diabetes Care. 2016.39(Suppl 1). Performed By: #### 1 9123-9, 2777-, 55897-5 ####[facility] LABORATORYCLIA [id number] [place] [address] [place] Potassium [Moles/Vol] 4.1 mmol/L Normal 3.7-5.1 [facility] Comment on above: Order Comment: Speci men Type: BLOOD SPECIMENOrdering Facility: [facility] Address: [address] [place] [address] Performed By: #### 1 9123-9, 2777-1, 47160-9 ####[facility]ORATORYCLIA [id number] [place] [address] [place] Sodium [Moles/Vol] 145 mmol/L High 136-144 [facility] Comment on above: Order Comment: Speci men Type: BLOOD SPECIMENOrdering Facility: [facility] Address: [address] [place] [address] Performed By: #### 1 9123-9, 2777-1, 36175-7 ####[facility]ORATORYCLIA [id number] [address] STATES [facility] Urea nitrogen [Mass/Vol] 40 mg/dL High 9-24 [facility] Comment on above: Order Comment: Speci men Type: BLOOD SPECIMENOrdering Facility: [facility] Address: [address] [place] [address] Performed By: #### 1 9123-9, 27711-04, 57868-9 ####[facility]ORATORYCLIA [id number] [address] [place] CBC W Auto Differential pane l (Bld)on 07-21-2021 Basophils (Bld) [#/Vol] 0.06 10*3/uL Normal <0.11 [facility] Comment on above: Order Comment: Speci men Type: BLOOD SPECIMENOrdering Facility: [facility] Address: [address] [place] [address] Performed By: #### 5 7021-8 ####[facility]ORATORYCLIA [id number] [address] [place] Basophils/100 WBC (Bld) 0.4 % Normal [facility] Comment on above: Order Comment: Speci men Type: BLOOD SPECIMENOrdering Facility: [facility] Address: [address] [place] [address] Performed By: #### 5 7021-8 ####[facility]ORATORYCLIA [id number] [address] Differential cell count method Nom (Bld) Auto Normal [facility] Comment on above: Order Comment: Speci men Type: BLOOD SPECIMENOrdering Facility: [facility] Address: [address] [place] [address] Performed By: #### 5 7021-8 ####[facility]ORATORYCLIA [id number] [place] [address] [place] Eosinophils (Bld) [#/Vol] 0.04 10*3/uL Normal <0.46 [facility] Comment on above: Order Comment: Speci men Type: BLOOD SPECIMENOrdering Facility: [facility] Address: [address] [place] [address] Performed By: #### 5 7021-8 ####[facility]ORATORYCLIA [id number] [address] [place] Eosinophils/100 WBC (Bld) 0.3 % Normal [facility] Comment on above: Order Comment: Speci men Type: BLOOD SPECIMENOrdering Facility: [facility] Address: [address] [place] [address] Performed By: #### 5 7021-8 ####[facility]ORATORYCLIA [id number] [address] [place] Erythrocyte distribution width (RBC) [Ratio] 17.0 % High 11.5-15.0 [facility] Comment on above: Order Comment: Speci men Type: BLOOD SPECIMENOrdering Facility: [facility] Address: [address] [place] [address] Performed By: #### 5 7021-8 ####[facility]ORATORYCLIA [id number] [address] [place] Hematocrit (Bld) [Volume fraction] 33.1 % Low 39.0-51.0 [facility] Comment on above: Order Comment: Speci men Type: BLOOD SPECIMENOrdering Facility: [facility] Address: [address] [place] [address] Performed By: #### 5 7021-8 ####[facility]ORATORYCLIA [id number] [address] [place] Hemoglobin (Bld) [Mass/Vol] 9.7 g/dL Low 13.0-17.0 [facility] Comment on above: Order Comment: Speci men Type: BLOOD SPECIMENOrdering Facility: [facility] Address: [address] [place] [address] Performed By: #### 5 7021-8 ####[facility] LABORATORYCLIA [id number] [address] IMMATURE GRAN % 0.5 % Normal [facility] Comment on above: Order Comment: Speci men Type: BLOOD SPECIMENOrdering Facility: [facility] Address: [address] [place] [address] Performed By: #### 5 7021-8 ####[facility]ORATORYCLIA [id number] [address] IMMATURE GRAN ABS 0.07 k/uL Normal <0.10 [facility] Comment on above: Order Comment: Speci men Type: BLOOD SPECIMENOrdering Facility: [facility] Address: [address] [place] [address] Performed By: #### 5 7021-8 ####[facility]ORATORYCLIA [id number] [address] Lymphocytes (Bld) [#/Vol] 1.99 10*3/uL Normal 1.00-4.00 [facility] Comment on above: Order Comment: Speci men Type: BLOOD SPECIMENOrdering Facility: [facility] Address: [address] [place] [address] Performed By: #### 5 7021-8 ####[facility]ORATORYCLIA [id number] [address] Lymphocytes/100 WBC (Bld) 13.4 % Normal [facility] Comment on above: Order Comment: Speci men Type: BLOOD SPECIMENOrdering Facility: [facility] Address: [address] [place] [address] Performed By: #### 5 7021-8 ####[facility]ORATORYCLIA [id number] [address] STATES [facility] MCH (RBC) [Entitic mass] 27.2 pg Normal 26.0-34.0 [facility] Comment on above: Order Comment: Speci men Type: BLOOD SPECIMENOrdering Facility: [facility] Address: [address] [place] [address] Performed By: #### 5 7021-8 ####[facility]ORATORYCLIA [id number] [address] [place] MCHC (RBC) [Mass/Vol] 29.3 g/dL Low 30.5-36.0 [facility] Comment on above: Order Comment: Speci men Type: BLOOD SPECIMENOrdering Facility: [facility] Address: [address] [place] [address] Performed By: #### 5 7021-8 ####[facility]ORATORYCLIA [id number] [address] [place] MCV (RBC) [Entitic vol] 92.7 fL Normal 80.0-100.0 [facility] Comment on above: Order Comment: Speci men Type: BLOOD SPECIMENOrdering Facility: [facility] Address: [address] [place] [address] Performed By: #### 5 7021-8 ####[facility]ORATORYCLIA [id number] [address] [place] Monocytes (Bld) [#/Vol] 1.10 10*3/uL High <0.87 [facility] Comment on above: Order Comment: Speci men Type: BLOOD SPECIMENOrdering Facility: [facility] Address: [address] [place] [address] Performed By: #### 5 7021-8 ####[facility] LABORATORYCLIA [id number] [address] OF [facility] Monocytes/100 WBC (Bld) 7.4 % Normal [facility] Comment on above: Order Comment: Speci men Type: BLOOD SPECIMENOrdering Facility: [facility] Address: [address] [place] [address] Performed By: #### 5 7021-8 ####[facility] LABORATORYCLIA [id number] [address] [place] Neutrophils (Bld) [#/Vol] 11.61 10*3/uL High 1.45-7.50 [facility] Comment on above: Order Comment: Speci men Type: BLOOD SPECIMENOrdering Facility: [facility] Address: [address] [place] [address] Performed By: #### 5 7021-8 ####[facility]ORATORYCLIA [id number] [address] Neutrophils/100 WBC (Bld) 78.0 % Normal [facility] Comment on above: Order Comment: Speci men Type: BLOOD SPECIMENOrdering Facility: [facility] Address: [address] [place] [address] Performed By: #### 5 7021-8 ####[facility]ORATORYCLIA [id number] [address] [place] Nucleated RBC (Bld) [#/Vol] 10*3/uL Normal <0.01 [facility] Comment on above: Order Comment: Speci men Type: BLOOD SPECIMENOrdering Facility: [facility] Address: [address] [place] [address] Performed By: #### 5 7021-8 ####[facility] LABORATORYCLIA [id number] [address] Nucleated RBC/100 WBC (Bld) [Ratio] 0.0 /100 WBC Normal [facility] Comment on above: Order Comment: Speci men Type: BLOOD SPECIMENOrdering Facility: [facility] Address: [address] [place] [address] Performed By: #### 5 7021-8 ####[facility] LABORATORYCLIA [id number] [address] [place] Platelet mean volume (Bld) [Entitic vol] 10.4 fL Normal 9.0-12.7 [facility] Comment on above: Order Comment: Speci men Type: BLOOD SPECIMENOrdering Facility: [facility] Address: [address] [place] [address] Performed By: #### 5 7021-8 ####[facility] LABORATORYCLIA [id number] [place] [address] [place] Platelets (Bld) [#/Vol] 396 10*3/uL Normal 150-400 [facility] Comment on above: Order Comment: Speci men Type: BLOOD SPECIMENOrdering Facility: [facility] Address: [address] [place] [address] Performed By: #### 5 7021-8 ####[facility] LABORATORYCLIA [id number] [place] [address] [place] RBC (Bld) [#/Vol] 3.57 10*6/uL Low 4.20-6.00 [facility] Comment on above: Order Comment: Speci men Type: BLOOD SPECIMENOrdering Facility: [facility] Address: [address] [place] [address] Performed By: #### 5 7021-8 ####[facility] LABORATORYCLIA [id number] STATES OF [facility] WBC (Bld) [#/Vol] 14.87 10*3/uL High 3.70-11.00 [facility] Comment on above: Order Comment: Speci men Type: BLOOD SPECIMENOrdering Facility: [facility] Address: [address] [place] [address] Performed By: #### 5 7021-8 ####[facility] LABORATORYCLIA [id number] [address] OF [facility] Gas and Carbon monoxide pane l (BldV)on 07-21-2021 Base excess Calc (BldV) [Moles/Vol] 7 mmol/L High 0-2 [facility] Comment on above: Order Comment: Speci men Type: VENOUS BLOOD SPECIMENOrdering Facility: [facility] Address: [address] [place] [address] Performed By: #### 2 4344-4 ####[facility] LABORATORYCLIA [id number] [address] Body temperature 98.6 [degF] Normal [facility] Comment on above: Order Comment: Speci men Type: VENOUS BLOOD SPECIMENOrdering Facility: [facility] Address: [address] [place] [address] Performed By: #### 2 4344-4 ####[facility] LABORATORYCLIA [id number] [place] [address] [place] CALCIUM IONIZED, PH CORRECTED 1.21 mmol/L Normal 1.08-1.30 [facility] Comment on above: Order Comment: Speci men Type: VENOUS BLOOD SPECIMENOrdering Facility: [facility] Address: [address] [place] [address] Performed By: #### 2 4344-4 ####[facility] LABORATORYCLIA [id number] [place] [address] [place] Calcium.ionized (BldV) [Mass/Vol] 1.23 mmol/L Normal 1.08-1.30 [facility] Comment on above: Order Comment: Speci men Type: VENOUS BLOOD SPECIMENOrdering Facility: [facility] Address: [address] [place] [address] Performed By: #### 2 4344-4 ####[facility] LABORATORYCLIA [id number] [place] [address] [place] Carboxyhemoglobin (BldV) [Mass fraction] 2.3 % High 0.0-2.0 [facility] Comment on above: Order Comment: Speci men Type: VENOUS BLOOD SPECIMENOrdering Facility: [facility] Address: [address] [place] [address] Result Comment: Carb oxyhemoglobin Reference Range for Smokers: 2.0-8.0% Performed By: #### 2 4344-4 ####[facility]ORATORYCLIA [id number] [address] [place] CO2 (BldV) [Partial pressure] 58 mm[Hg] High 42-55 [facility] Comment on above: Order Comment: Speci men Type: VENOUS BLOOD SPECIMENOrdering Facility: [facility] Address: [address] [place] [address] Performed By: #### 2 4344-4 ####[facility] LABORATORYCLIA [id number] [place] [address] [place] CO2 [Moles/Vol] 31 mmol/L High 25-29 [facility] Comment on above: Order Comment: Speci men Type: VENOUS BLOOD SPECIMENOrdering Facility: [facility] Address: [address] [place] [address] Performed By: #### 2 4344-4 ####[facility]ORATORYCLIA [id number] [place] [address] [place] Glucose [Mass/Vol] 146 mg/dL High 60-105 [facility] Comment on above: Order Comment: Speci men Type: VENOUS BLOOD SPECIMENOrdering Facility: [facility] Address: [address] [place] [address] Performed By: #### 2 4344-4 ####[facility] LABORATORYCLIA [id number] [place] [address] [place] HCO3 (Bld) [Moles/Vol] 33 mmol/L High 24-28 [facility] Comment on above: Order Comment: Speci men Type: VENOUS BLOOD SPECIMENOrdering Facility: [facility] Address: [address] [place] [address] Performed By: #### 2 4344-4 ####[facility] LABORATORYCLIA [id number] [place] [address] [place] Hematocrit (Bld) [Volume fraction] 30.1 % Low 39.0-51.0 [facility] Comment on above: Order Comment: Speci men Type: VENOUS BLOOD SPECIMENOrdering Facility: [facility] Address: [address] [address] Performed By: #### 2 4344-4 ####[facility]ORATORYCLIA [id number] [place] [address] [place] Hemoglobin (Bld) [Mass/Vol] 9.7 g/dL Low 13.0-17.0 [facility] Comment on above: Order Comment: Speci men Type: VENOUS BLOOD SPECIMENOrdering Facility: [facility] Address: [address] [place] [address] Performed By: #### 2 4344-4 ####[facility] LABORATORYCLIA [id number] [place] [id number] [place] Methemoglobin (Bld) [Mass fraction] % Normal 0.0-1.5 [facility] Comment on above: Order Comment: Speci men Type: VENOUS BLOOD SPECIMENOrdering Facility: [facility] Address: [address] [place] [address] Performed By: #### 2 4344-4 ####[facility] LABORATORYCLIA [id number] [address] [place] O2 THERAPY [place] = Nasal Cannula Normal [facility] Comment on above: Order Comment: Speci men Type: VENOUS BLOOD SPECIMENOrdering Facility: [facility] Address: [address] [place] [address] Performed By: #### 2 4344-4 ####[facility]ORATORYCLIA [id number] [address] [place] Oxygen (BldV) [Partial pressure] 64 mm[Hg] High 35-45 [facility] Comment on above: Order Comment: Speci men Type: VENOUS BLOOD SPECIMENOrdering Facility: [facility] Address: [address] [place] [address] Performed By: #### 2 4344-4 ####[facility] LABORATORYCLIA [id number] [address] [place] Oxygen saturation in Blood 90 % High 60-85 [facility] Comment on above: Order Comment: Speci men Type: VENOUS BLOOD SPECIMENOrdering Facility: [facility] Address: [address] [address] Performed By: #### 2 4344-4 ####[facility]ORATORYCLIA [id number] [address] [place] Oxyhemoglobin (BldV) [Mass fraction] 87 % High 60-85 [facility] Comment on above: Order Comment: Speci men Type: VENOUS BLOOD SPECIMENOrdering Facility: [facility] Address: [address] [place] [address] Performed By: #### 2 4344-4 ####[facility] LABORATORYCLIA [id number] [place] [address] [place] pH (BldV) 7.38 [pH] Normal 7.32-7.42 [facility] Comment on above: Order Comment: Speci men Type: VENOUS BLOOD SPECIMENOrdering Facility: [facility] Address: [address] [place] [address] Performed By: #### 2 4344-4 ####[facility] LABORATORYCLIA [id number] [address] [place] Potassium [Moles/Vol] 3.8 mmol/L Normal 3.5-5.0 [facility] Comment on above: Order Comment: Speci men Type: VENOUS BLOOD SPECIMENOrdering Facility: [facility] Address: [address] [place] [address] Performed By: #### 2 4344-4 ####[facility]ORATORYCLIA [id number] [address] [place] Sodium [Moles/Vol] 145 mmol/L High 136-144 [facility] Comment on above: Order Comment: Speci men Type: VENOUS BLOOD SPECIMENOrdering Facility: [facility] Address: [address] [place] [address] Performed By: #### 2 4344-4 ####[facility]ORATORYCLIA [id number] [address] [place] Base excess Calc (BldV) [Moles/Vol] 8 mmol/L High 0-2 [facility] Comment on above: Order Comment: Speci men Type: VENOUS BLOOD SPECIMENOrdering Facility: [facility] Address: [address] [place] [address] Performed By: #### 2 4344-4 ####[facility]ORATORYCLIA [id number] [address] [place] Body temperature 100.22 [degF] Normal [facility] Comment on above: Order Comment: Speci men Type: VENOUS BLOOD SPECIMENOrdering Facility: [facility] Address: [address] [place] [address] Performed By: #### 2 4344-4 ####[facility] LABORATORYCLIA [id number] [address] STATES OF [facility] CALCIUM IONIZED, PH CORRECTED 1.25 mmol/L Normal 1.08-1.30 [facility] Comment on above: Order Comment: Speci men Type: VENOUS BLOOD SPECIMENOrdering Facility: [facility] Address: [address] [place] [address] Performed By: #### 2 4344-4 ####[facility]ORATORYCLIA [id number] [address] Calcium.ionized (BldV) [Mass/Vol] 1.24 mmol/L Normal 1.08-1.30 [facility] Comment on above: Order Comment: Speci men Type: VENOUS BLOOD SPECIMENOrdering Facility: [facility] Address: [address] [place] [address] Performed By: #### 2 4344-4 ####[facility] LABORATORYCLIA [id number] [address] [place] Carboxyhemoglobin (BldV) [Mass fraction] 2.5 % High 0.0-2.0 [facility] Comment on above: Order Comment: Speci men Type: VENOUS BLOOD SPECIMENOrdering Facility: [facility] Address: [address] [place] [address] Result Comment: Carb oxyhemoglobin Reference Range for Smokers: 2.0-8.0% Performed By: #### 2 4344-4 ####[facility]ORATORYCLIA [id number] [address] [place] CO2 (BldV) [Partial pressure] 53 mm[Hg] Normal 42-55 [facility] Comment on above: Order Comment: Speci men Type: VENOUS BLOOD SPECIMENOrdering Facility: [facility] Address: [address] [place] [address] Performed By: #### 2 4344-4 ####[facility]ORATORYCLIA [id number] [address] [place] CO2 [Moles/Vol] 31 mmol/L High 25-29 [facility] Comment on above: Order Comment: Speci men Type: VENOUS BLOOD SPECIMENOrdering Facility: [facility] Address: [address] [place] [address] Performed By: #### 2 4344-4 ####[facility] LABORATORYCLIA [id number] [address] [place] CO2 adjusted to patient's actual temperature (BldV) [Partial pressure] 56 mmHg High 42-55 [facility] Comment on above: Order Comment: Speci men Type: VENOUS BLOOD SPECIMENOrdering Facility: [facility] Address: [address] [place] [address] Performed By: #### 2 4344-4 ####[facility]ORATORYCLIA [id number] [address] [place] Glucose [Mass/Vol] 131 mg/dL High 60-105 [facility] Comment on above: Order Comment: Speci men Type: VENOUS BLOOD SPECIMENOrdering Facility: [facility] Address: [address] [place] [address] Performed By: #### 2 4344-4 ####[facility]ORATORYCLIA [id number] [place] [address] [place] HCO3 (Bld) [Moles/Vol] 33 mmol/L High 24-28 [facility] Comment on above: Order Comment: Speci men Type: VENOUS BLOOD SPECIMENOrdering Facility: [facility] Address: [address] [place] [address] Performed By: #### 2 4344-4 ####[facility] LABORATORYCLIA [id number] [place] [address] [place] Hematocrit (Bld) [Volume fraction] 30.8 % Low 39.0-51.0 [facility] Comment on above: Order Comment: Speci men Type: VENOUS BLOOD SPECIMENOrdering Facility: [facility] Address: [address] [place] [address] Performed By: #### 2 4344-4 ####[facility] LABORATORYCLIA [id number] [address] OF [facility] Hemoglobin (Bld) [Mass/Vol] 10.0 g/dL Low 13.0-17.0 [facility] Comment on above: Order Comment: Speci men Type: VENOUS BLOOD SPECIMENOrdering Facility: [facility] Address: [address] [place] [address] Performed By: #### 2 4344-4 ####[facility]ORATORYCLIA [id number] [address] Methemoglobin (Bld) [Mass fraction] % Normal 0.0-1.5 [facility] Comment on above: Order Comment: Speci men Type: VENOUS BLOOD SPECIMENOrdering Facility: [facility] Address: [address] [place] [address] Performed By: #### 2 4344-4 ####[facility] LABORATORYCLIA [id number] [address] O2 THERAPY [place] = Nasal Cannula Normal [facility] Comment on above: Order Comment: Speci men Type: VENOUS BLOOD SPECIMENOrdering Facility: [facility] Address: [address] [place] [address] Performed By: #### 2 4344-4 ####[facility]ORATORYCLIA [id number] [address] Oxygen (BldV) [Partial pressure] 58 mm[Hg] High 35-45 [facility] Comment on above: Order Comment: Speci men Type: VENOUS BLOOD SPECIMENOrdering Facility: [facility] Address: [address] [place] [address] Performed By: #### 2 4344-4 ####[facility] LABORATORYCLIA [id number] [place] [address] [place] Oxygen adjusted to patient's actual temperature (BldV) [Partial pressure] 61 mmHg High 35-45 [facility] Comment on above: Order Comment: Speci men Type: VENOUS BLOOD SPECIMENOrdering Facility: [facility] Address: [address] [address] Performed By: #### 2 4344-4 ####[facility] LABORATORYCLIA [id number] [address] [place] Oxygen saturation in Blood 88 % High 60-85 [facility] Comment on above: Order Comment: Speci men Type: VENOUS BLOOD SPECIMENOrdering Facility: [facility] Address: [address] [place] [address] Performed By: #### 2 4344-4 ####[facility] LABORATORYCLIA [id number] [address] Oxyhemoglobin (BldV) [Mass fraction] 85 % Normal 60-85 [facility] Comment on above: Order Comment: Speci men Type: VENOUS BLOOD SPECIMENOrdering Facility: [facility] Address: [address] [address] Performed By: #### 2 4344-4 ####[facility]ORATORYCLIA [id number] [address] [place] pH (BldV) 7.41 [pH] Normal 7.32-7.42 [facility] Comment on above: Order Comment: Speci men Type: VENOUS BLOOD SPECIMENOrdering Facility: [facility] Address: [address] [address] Performed By: #### 2 4344-4 ####[facility]ORATORYCLIA [id number] [address] STATES [facility] pH adjusted to patient's actual temperature (BldV) 7.40 Normal 7.32-7.42 [facility] Comment on above: Order Comment: Speci men Type: VENOUS BLOOD SPECIMENOrdering Facility: [facility] Address: [address] [address] Performed By: #### 2 4344-4 ####[facility] LABORATORYCLIA [id number] [address] [place] Potassium [Moles/Vol] 4.0 mmol/L Normal 3.5-5.0 [facility] Comment on above: Order Comment: Speci men Type: VENOUS BLOOD SPECIMENOrdering Facility: [facility] Address: [address] [place] [address] Performed By: #### 2 4344-4 ####[facility] LABORATORYCLIA [id number] [address] STATES OF [facility] Sodium [Moles/Vol] 146 mmol/L High 136-144 [facility] Comment on above: Order Comment: Speci men Type: VENOUS BLOOD SPECIMENOrdering Facility: [facility] Address: [address] [place] [address] Performed By: #### 2 4344-4 ####[facility] LABORATORYCLIA [id number] [address] [place] Magnesium SerPl-ncon 07-21 Magnesium [Mass/Vol] 2.5 mg/dL High 1.7-2.3 [facility] Comment on above: Order Comment: Speci men Type: BLOOD SPECIMENOrdering Facility: [facility] Address: [address] [place] [address] Performed By: #### 1 9123-9, 2777-1, 67558-8 ####[facility] LABORATORYCLIA [id number] [address] [place] NURSING PROGon 07-21-2021 NURSING PROG Normal [facility] Phosphate SerPl-mCncon 07-21 Phosphate [Mass/Vol] 3.7 mg/dL Normal 2.7-4.8 [facility] Comment on above: Order Comment: Speci men Type: BLOOD SPECIMENOrdering Facility: [facility] Address: [address] [place] [address] Performed By: #### 1 9123-9, 2777-1, 34995-7 ####[facility] LABORATORYCLIA [id number] [place] [address] [facility] [place] THERAPY NTon 07-21-2021 THERAPY NT Normal [facility] XR CHEST 1V FRONTALon 2021 XR CHEST 1V FRONTAL Normal [facility] aPTT PPPon 07-21-2021 aPTT Coag (PPP) [Time] 53.0 s High 23.0-32.4 [facility] Comment on above: Order Comment: Speci men Type: BLOOD SPECIMENOrdering Facility: [facility] Address: [address] [place] [address] Performed By: #### 1 4979-9 ####[facility] LABORATORYCLIA [id number] [address] [place] ALLIED HEALTHon 07-20-2021 ALLIED HEALTH Normal [facility] Basic metabolic 2000 panelon 07-20-2021 Anion gap [Moles/Vol] 8 mmol/L Low 9-18 [facility] Comment on above: Order Comment: Speci men Type: BLOOD SPECIMENOrdering Facility: [facility] Address: [address] [place] [address] Performed By: #### 2 4321-2, 47035-6, 2777-1 ####[facility]ITALCLIA [id number] [place] [address] [place] Calcium [Mass/Vol] 9.7 mg/dL Normal 8.5-10.2 [facility] Comment on above: Order Comment: Speci men Type: BLOOD SPECIMENOrdering Facility: [facility] Address: [address] [place] [address] Performed By: #### 2 4321-2, 26874-2, 2777-1 ####[facility] LABORATORYCLIA [id number] [place] [address] [place] Chloride [Moles/Vol] 104 mmol/L Normal 97-105 [facility] Comment on above: Order Comment: Speci men Type: BLOOD SPECIMENOrdering Facility: [facility] Address: [address] [place] [address] Performed By: #### 2 4321-2, , 2776-05 ####[facility] LABORATORYCLIA [id number] [place] [address] [place] CO2 [Moles/Vol] 34 mmol/L High 22-30 [facility] Comment on above: Order Comment: Speci men Type: BLOOD SPECIMENOrdering Facility: [facility] Address: [address] [place] [address] Performed By: #### 2 4321-2, , 2776-05 ####[facility] LABORATORYCLIA [id number] [place], [place] [address] [place] [address] [place] [facility] Creatinine [Mass/Vol] 0.76 mg/dL Normal 0.73-1.22 [facility] Comment on above: Order Comment: Speci men Type: BLOOD SPECIMENOrdering Facility: [facility] Address: [address] [place] [address] Performed By: #### 2 4321-2, , 2776-05 ####[facility]ITALCLIA [id number] [address] ESTIMATED GLOMERULAR FILTRATION RATE 97 mL/min/1.73m??? Normal >=60 [facility] Comment on above: Order Comment: Speci men Type: BLOOD SPECIMENOrdering Facility: [facility] Address: [address] [place] [address] Result Comment: Luzmaria mated Glomerular Filtration Rate [...] 2 4321-2, , 2776-05 ####[facility] LABORATORYCLIA [id number] [place] [address] [place] Glucose [Mass/Vol] 123 mg/dL High 74-99 [facility] Comment on above: Order Comment: Shira feldman Type: BLOOD SPECIMENOrdering Facility: [facility] Address: [address] [place], [place] [address] Result Comment: The [place] [employer] (ADA) provides guidance for cutoff [...] Standards of Medical Care in Diabetes 2016, [place] [employer]. Diabetes Care. 2016.39(Suppl 1). Performed By: #### 2 4321-2, , 2776-05 ####[facility] LABORATORYCLIA [id number] [place] [address] [place] Potassium [Moles/Vol] 4.4 mmol/L Normal 3.7-5.1 [facility] Comment on above: Order Comment: Shira feldman Type: BLOOD SPECIMENOrdering Facility: [facility] Address: [address] [place], [place] [address] Performed By: #### 2 4321-2, , 2776-05 ####[facility] LABORATORYCLIA [id number] [place] [address] [place] Sodium [Moles/Vol] 146 mmol/L High 136-144 [facility] Comment on above: Order Comment: Shira feldman Type: BLOOD SPECIMENOrdering Facility: [facility] Address: [address] [place], [place] [address] Performed By: #### 2 4321-2, , 2776-05 ####[facility] LABORATORYCLIA [id number] [place] [address] [place] Urea nitrogen [Mass/Vol] 38 mg/dL High 9-24 [facility] Comment on above: Order Comment: Speci men Type: BLOOD SPECIMENOrdering Facility: [facility] Address: [address] [place] [address] Performed By: #### 2 4321-2, 16265-5, 2777-1 ####[facility] LABORATORYCLIA [id number] [address] [place] CASE MANAGEMon 07-20-2021 CASE MANAGEM Normal [facility] CBC W Auto Differential pane l (Bld)on 07-20-2021 Basophils (Bld) [#/Vol] 0.05 10*3/uL Normal <0.11 [facility] Comment on above: Order Comment: Speci men Type: BLOOD SPECIMENOrdering Facility: [facility] Address: [address] [place] [address] Performed By: #### 5 7021-8 ####[facility] LABORATORYCLIA [id number] [address] [place] Basophils/100 WBC (Bld) 0.5 % Normal [facility] Comment on above: Order Comment: Speci men Type: BLOOD SPECIMENOrdering Facility: [facility] Address: [address] [place] [address] Performed By: #### 5 7021-8 ####[facility] LABORATORYCLIA [id number] [address] [place] Differential cell count method Nom (Bld) Auto Normal [facility] Comment on above: Order Comment: Speci men Type: BLOOD SPECIMENOrdering Facility: [facility] Address: [address] [place] [address] Performed By: #### 5 7021-8 ####[facility] LABORATORYCLIA [id number] [place] [address] [place] Eosinophils (Bld) [#/Vol] 0.43 10*3/uL Normal <0.46 [facility] Comment on above: Order Comment: Speci men Type: BLOOD SPECIMENOrdering Facility: [facility] Address: [address] [place], [place] [address] Performed By: #### 5 7021-8 ####[facility] LABORATORYCLIA [id number] [address] [place] Eosinophils/100 WBC (Bld) 4.1 % Normal [facility] Comment on above: Order Comment: Speci men Type: BLOOD SPECIMENOrdering Facility: [facility] Address: [address] [place] [address] Performed By: #### 5 7021-8 ####[facility] LABORATORYCLIA [id number] [address] [place] Erythrocyte distribution width (RBC) [Ratio] 16.7 % High 11.5-15.0 [facility] Comment on above: Order Comment: Speci men Type: BLOOD SPECIMENOrdering Facility: [facility] Address: [address] [place] [address] Performed By: #### 5 7021-8 ####[facility] LABORATORYCLIA [id number] [address] Hematocrit (Bld) [Volume fraction] 33.0 % Low 39.0-51.0 [facility] Comment on above: Order Comment: Speci men Type: BLOOD SPECIMENOrdering Facility: [facility] Address: [address] [place] [address] Performed By: #### 5 7021-8 ####[facility] LABORATORYCLIA [id number] [address] [place] Hemoglobin (Bld) [Mass/Vol] 9.7 g/dL Low 13.0-17.0 [facility] Comment on above: Order Comment: Speci men Type: BLOOD SPECIMENOrdering Facility: [facility] Address: [address] [place] [address] Performed By: #### 5 7021-8 ####[facility]ORATORYCLIA [id number] [address] [place] IMMATURE GRAN % 0.4 % Normal [facility] Comment on above: Order Comment: Speci men Type: BLOOD SPECIMENOrdering Facility: [facility] Address: [address] [place] [address] Performed By: #### 5 7021-8 ####[facility] LABORATORYCLIA [id number] [address] IMMATURE GRAN ABS 0.04 k/uL Normal <0.10 [facility] Comment on above: Order Comment: Speci men Type: BLOOD SPECIMENOrdering Facility: [facility] Address: [address] [place] [address] Performed By: #### 5 7021-8 ####[facility] LABORATORYCLIA [id number] [address] Lymphocytes (Bld) [#/Vol] 1.99 10*3/uL Normal 1.00-4.00 [facility] Comment on above: Order Comment: Speci men Type: BLOOD SPECIMENOrdering Facility: [facility] Address: [address] [place] [address] Performed By: #### 5 7021-8 ####[facility]ORATORYCLIA [id number] [address] Lymphocytes/100 WBC (Bld) 18.8 % Normal [facility] Comment on above: Order Comment: Speci men Type: BLOOD SPECIMENOrdering Facility: [facility] Address: [address] [place] [address] Performed By: #### 5 7021-8 ####[facility]ATORYCLIA [id number] [address] MCH (RBC) [Entitic mass] 27.8 pg Normal 26.0-34.0 [facility] Comment on above: Order Comment: Speci men Type: BLOOD SPECIMENOrdering Facility: [facility] Address: [address] [place] [address] Performed By: #### 5 7021-8 ####[facility]ORATORYCLIA [id number] [address] MCHC (RBC) [Mass/Vol] 29.4 g/dL Low 30.5-36.0 [facility] Comment on above: Order Comment: Speci men Type: BLOOD SPECIMENOrdering Facility: [facility] Address: [address] [place] [address] Performed By: #### 5 7021-8 ####[facility]ORATORYCLIA [id number] [address] [place] MCV (RBC) [Entitic vol] 94.6 fL Normal 80.0-100.0 [facility] Comment on above: Order Comment: Speci men Type: BLOOD SPECIMENOrdering Facility: [facility] Address: [address] [place] [address] Performed By: #### 5 7021-8 ####[facility]ATORYCLIA [id number] [address] [place] Monocytes (Bld) [#/Vol] 0.82 10*3/uL Normal <0.87 [facility] Comment on above: Order Comment: Speci men Type: BLOOD SPECIMENOrdering Facility: [facility] Address: [address] [place] [address] Performed By: #### 5 7021-8 ####[facility]ATORYCLIA [id number] [address] [place] Monocytes/100 WBC (Bld) 7.8 % Normal [facility] Comment on above: Order Comment: Speci men Type: BLOOD SPECIMENOrdering Facility: [facility] Address: [address] [place] [address] Performed By: #### 5 7021-8 ####[facility]ATORYCLIA [id number] [address] [place] Neutrophils (Bld) [#/Vol] 7.23 10*3/uL Normal 1.45-7.50 [facility] Comment on above: Order Comment: Speci men Type: BLOOD SPECIMENOrdering Facility: [facility] Address: [address] [place] [address] Performed By: #### 5 7021-8 ####[facility]ORYCLIA [id number] [address] Neutrophils/100 WBC (Bld) 68.4 % Normal [facility] Comment on above: Order Comment: Speci men Type: BLOOD SPECIMENOrdering Facility: [facility] Address: [address] [place] [address] Performed By: #### 5 7021-8 ####[facility]ATORYCLIA [id number] [address] [place] Nucleated RBC (Bld) [#/Vol] 10*3/uL Normal <0.01 [facility] Comment on above: Order Comment: Speci men Type: BLOOD SPECIMENOrdering Facility: [facility] Address: [address] [place] [address] Performed By: #### 5 7021-8 ####[facility]ORATORYCLIA [id number] [address] Nucleated RBC/100 WBC (Bld) [Ratio] 0.0 /100 WBC Normal [facility] Comment on above: Order Comment: Speci men Type: BLOOD SPECIMENOrdering Facility: [facility] Address: [address] [place] [address] Performed By: #### 5 7021-8 ####[facility]ORATORYCLIA [id number] [address] [place] Platelet mean volume (Bld) [Entitic vol] 10.5 fL Normal 9.0-12.7 [facility] Comment on above: Order Comment: Speci men Type: BLOOD SPECIMENOrdering Facility: [facility] Address: [address] [place] [address] Performed By: #### 5 7021-8 ####[facility]ORATORYCLIA [id number] [address] [place] Platelets (Bld) [#/Vol] 400 10*3/uL Normal 150-400 [facility] Comment on above: Order Comment: Speci men Type: BLOOD SPECIMENOrdering Facility: [facility] Address: [address] [place] [address] Performed By: #### 5 7021-8 ####[facility]ORATORYCLIA [id number] [address] RBC (Bld) [#/Vol] 3.49 10*6/uL Low 4.20-6.00 [facility] Comment on above: Order Comment: Speci men Type: BLOOD SPECIMENOrdering Facility: [facility] Address: [address] [place] [address] Performed By: #### 5 7021-8 ####[facility]ORATORYCLIA [id number] [address] WBC (Bld) [#/Vol] 10.56 10*3/uL Normal 3.70-11.00 [facility] Comment on above: Order Comment: Speci men Type: BLOOD SPECIMENOrdering Facility: [facility] Address: [address] [place] [address] Performed By: #### 5 7021-8 ####[facility]ORATORYCLIA [id number] [address] CONSULT PROGon 07-20-2021 CONSULT PROG Normal [facility] CT BRAIN WO IVCONon 07-21-[address] BRAIN WO IVCON Normal [facility] Magnesium [Mass/Vol] 2.4 mg/dL High 1.7-2.3 [facility] Comment on above: Order Comment: Speci men Type: BLOOD SPECIMENOrdering Facility: [facility] Address: [address] [place] [address] Performed By: #### 2 4321-2, 53404-0, 2777-1 ####[facility]ATORYCLIA [id number] [address] [place] NUTRITIONon 07-20-2021 NUTRITION Normal [facility] Phosphate SerPl-mCncon 07-20 Phosphate [Mass/Vol] 4.1 mg/dL Normal 2.7-4.8 [facility] Comment on above: Order Comment: Speci men Type: BLOOD SPECIMENOrdering Facility: [facility] Address: [address] [place] [address] Performed By: #### 2 4321-2, 89203-1, 2777-1 ####[facility]ORATORYCLIA [id number] [place] [address] [place] aPTT PPPon 07-20-2021 aPTT Coag (PPP) [Time] 53.6 s High 23.0-32.4 [facility] Comment on above: Order Comment: Speci men Type: BLOOD SPECIMENOrdering Facility: [facility] Address: [address] [place] [address] Performed By: #### 1 4979-9 ####[facility]ORATORYCLIA [id number] [address] [place] Bacteria CSF Culton 07-20-19 22 Bacteria identified Cx Nom (CSF) CULTURE, CSF: No growth 14 days GRAM STAIN: No organisms seen No Polymorphonuclear Leukocytes Rare Mononuclear cells Gram stain performed on cytospun specimen. Normal [facility] Comment on above: Performed By: #### 6 06-4 ####[facility]ORATORYCLIA [id number] [place] [address] [place] CONSULT PROGon 07-19-2021 CONSULT PROG Normal [facility] CSF MANUAL DIFFon 07-19-2021 DIF TTL, CSF 100 cells counted Normal [facility] Comment on above: Order Comment: Speci men Type: CEREBROSPINAL FLUIDOrdering Facility: [facility] Address: [address] [place] [address] Performed By: #### L [id number], 49555-6, [id number] ####[facility]ORATORYCLIA [id number] [place] [address] [place] EOSIN%, CSF 1 % Normal [facility] Comment on above: Order Comment: Speci men Type: CEREBROSPINAL FLUIDOrdering Facility: [facility] Address: [address] [address] Performed By: #### L [id number], 45821-5, [id number] ####[facility]ORATORYCLIA [id number] [place] [address] [place] LYMPH%, CSF 67 % Normal 50-90 [facility] Comment on above: Order Comment: Speci men Type: CEREBROSPINAL FLUIDOrdering Facility: [facility] Address: [address] [place] [address] Performed By: #### L DR4701, 25714-7, [id number] ####[facility]ATORYCLIA [id number] [address] [place] MACRO%, CSF 1 % High <1 [facility] Comment on above: Order Comment: Speci men Type: CEREBROSPINAL FLUIDOrdering Facility: [facility] Address: [address] [place] [address] Performed By: #### L ED9612, 21740-5, [id number] ####[facility]ATORYCLIA [id number] [place] [address] [place] MONO%, CSF 18 % Normal 10-50 [facility] Comment on above: Order Comment: Speci men Type: CEREBROSPINAL FLUIDOrdering Facility: [facility] Address: [address] [place] [address] Performed By: #### L DX5826, 78246-1, [id number] ####[facility]ATORYCLIA [id number] [place] [address] [place] NEUT%, CSF 11 % High 0-3 [facility] Comment on above: Order Comment: Speci men Type: CEREBROSPINAL FLUIDOrdering Facility: [facility] Address: [address] [place] [address] Performed By: #### L AR8302, 02826-8, [id number] ####[facility]ATORYCLIA [id number] [address] [place] OTHER CL%, CSF 2 % Normal [facility] Comment on above: Order Comment: Speci men Type: CEREBROSPINAL FLUIDOrdering Facility: [facility] Address: [address] [place] [address] Result Comment: Path review to follow. Performed By: #### L NV1382, 70991-6, [id number] ####[facility]ORATORYCLIA [id number] [address] CSF PATHOLOGIST INTERP (LAB REFLEX ORDER-NO BILL)on 07-19-2021 CSF STAFF REVIEW Normal [facility] Comment on above: Order Comment: Speci men Type: CEREBROSPINAL FLUIDOrdering Facility: [facility] Address: [address] [place] [address] Performed By: #### L ZW2597, 34401-6, [id number] ####[facility]ORATORYCLIA [id number] [address] Pathologist name Reviewed by Wing Cummings MD [facility] Comment on above: Order Comment: Speci men Type: CEREBROSPINAL FLUIDOrdering Facility: [facility] Address: [address] [place] [address] Performed By: #### L FN5919, 09008-0, [id number] ####[facility]ORATORYCLIA [id number] [address] Cell count panel (CSF)on Clarity (CSF) Clear Normal Clear [facility] Comment on above: Order Comment: Speci men Type: CEREBROSPINAL FLUIDOrdering Facility: [facility] Address: [address] [place] [address] Performed By: #### L DK6241, 15141-0, [id number] ####[facility]ATORYCLIA [id number] [address] Clarity (Unsp spec) Not Indicated Normal Clear [facility] Comment on above: Order Comment: Speci men Type: CEREBROSPINAL FLUIDOrdering Facility: [facility] Address: [address] [place] [address] Performed By: #### L [id number], 90670-3, [id number] ####[facility]ATORYCLIA [id number] [address] OF [facility] Color (CSF) Colorless Normal Colorless [facility] Comment on above: Order Comment: Speci men Type: CEREBROSPINAL FLUIDOrdering Facility: [facility] Address: [address] [place] [address] Performed By: #### L [id number], 94873-1, [id number] ####[facility]ATORYCLIA [id number] [address] [place] Color (Spun CSF) Not Indicated Normal Colorless [facility] Comment on above: Order Comment: Speci men Type: CEREBROSPINAL FLUIDOrdering Facility: [facility] Address: [address] [place] [address] Performed By: #### L ZW0986, 57084-5, [id number] ####[facility]ORATORYCLIA [id number] [address] OF [facility] CSF TUBE NUMBER Sterile Container Normal [facility] Comment on above: Order Comment: Speci men Type: CEREBROSPINAL FLUIDOrdering Facility: [facility] Address: [address] [place] [address] Performed By: #### L VT1505, 36253-3, [id number] ####[facility]ATORYCLIA [id number] [address] OF [facility] RBC Manual cnt (CSF) [#/Vol] 0 cells/uL Normal 0-5 [facility] Comment on above: Order Comment: Speci men Type: CEREBROSPINAL FLUIDOrdering Facility: [facility] Address: [address] [place] [address] Performed By: #### L US4318, 78358-4, [id number] ####[facility]ATORYCLIA [id number] [address] WBC Manual cnt (CSF) [#/Vol] 2 cells/uL Normal 0-5 [facility] Comment on above: Order Comment: Speci men Type: CEREBROSPINAL FLUIDOrdering Facility: [facility] Address: [address] [place] [address] Performed By: #### L SS5866, 77344-4, [id number] ####[facility]ORATORYCLIA [id number] [place] [address] [place] Glucose CSF-mCncon Glucose (CSF) [Mass/Vol] 69 mg/dL Normal 40-70 [facility] Comment on above: Order Comment: Speci men Type: CEREBROSPINAL FLUIDOrdering Facility: [facility] Address: [address] [place] [address] Result Comment: Lumb ar CSF glucose values of healthy patients are approximately 60% of the plasma values and must always be compared with a concurrently measured plasma value for adequate clinical interpretation.References: 1. Glucose HK (GLUC3) [package insert V 12.0 [place]uvian]. [employer], [place], [place]. September 2015. 2. Michelle Moore, Loki HGarfield (2015). Chapter 7: Glucose and Lactate. FGarfield Alcocer al.(eds.), Cerebrospinal Fluid in Clinical Neurology. [place]: [employer]. Performed By: #### 2 342-4, 2880-3 ####[facility] LABORATORYCLIA [id number] [place] [address] [place] NURSING PROGon 07-19-2021 NURSING PROG Normal [facility] NURSING PROG Normal [facility] Prot CSF-mCncon 07-19-2021 Protein (CSF) [Mass/Vol] 51 mg/dL High 15-45 [facility] Comment on above: Order Comment: Speci men Type: CEREBROSPINAL FLUIDOrdering Facility: [facility] Address: [address] [place] [address] Performed By: #### 2 342-4, 2880-3 ####[facility]ORATORYCLIA [id number] [address] [place] THERAPY NTon 07-19-2021 THERAPY NT Normal [facility] Urinalysis complete panel (U )on 07-19-2021 Bilirubin Ql (U) Negative Normal Negative [facility] Comment on above: Order Comment: Speci men Type: URINE SPECIMENOrdering Facility: [facility] Address: [address] [place] [address] Performed By: #### 2 4356-8 ####[facility]ORATORYCLIA [id number] [address] [place] Clarity (Unsp spec) Clear Normal Clear [facility] Comment on above: Order Comment: Speci men Type: URINE SPECIMENOrdering Facility: [facility] Address: [address] [place] [address] Performed By: #### 2 4356-8 ####[facility]ORATORYCLIA [id number] [address] STATES [facility] Color (U) Colorless Normal yellow [facility] Comment on above: Order Comment: Speci men Type: URINE SPECIMENOrdering Facility: [facility] Address: [address] [place] [address] Performed By: #### 2 4356-8 ####[facility]ATORYCLIA [id number] [address] [place] Glucose Test strip (U) [Mass/Vol] Negative Normal Negative [facility] Comment on above: Order Comment: Speci men Type: URINE SPECIMENOrdering Facility: [facility] Address: [address] [place] [address] Performed By: #### 2 4356-8 ####[facility]ORATORYCLIA [id number] [address] Hemoglobin Ql (U) Trace Abnormal Negative [facility] Comment on above: Order Comment: Speci men Type: URINE SPECIMENOrdering Facility: [facility] Address: [address] [place] [address] Performed By: #### 2 4356-8 ####[facility]ATORYCLIA [id number] [address] [place] Hyaline casts (Urine sed) [#/Area] 1-3 /LPF Abnormal 0 /LPF [facility] Comment on above: Order Comment: Speci men Type: URINE SPECIMENOrdering Facility: [facility] Address: [address] [place] [address] Performed By: #### 2 4356-8 ####[facility]ATORYCLIA [id number] [address] OF [facility] Ketones Ql (U) Negative Normal Negative [facility] Comment on above: Order Comment: Speci men Type: URINE SPECIMENOrdering Facility: [facility] Address: [address] [place] [address] Performed By: #### 2 4356-8 ####[facility]ATORYCLIA [id number] [address] Leukocyte esterase Test strip Ql (U) Negative Normal Negative [facility] Comment on above: Order Comment: Speci men Type: URINE SPECIMENOrdering Facility: [facility] Address: [address] [place] [address] Performed By: #### 2 4356-8 ####[facility]ATORYCLIA [id number] [address] STATES OF [facility] Nitrite Ql (U) Negative Normal Negative [facility] Comment on above: Order Comment: Speci men Type: URINE SPECIMENOrdering Facility: [facility] Address: [address] [place] [address] Performed By: #### 2 4356-8 ####[facility]ORATORYCLIA [id number] [address] [place] pH (U) 7.0 [pH] Normal 5.0-8.0 [facility] Comment on above: Order Comment: Speci men Type: URINE SPECIMENOrdering Facility: [facility] Address: [address] [place] [address] Performed By: #### 2 4356-8 ####[facility]ORYCLIA [id number] [address] [place] Protein (U) [Mass/Vol] Negative Normal Negative [facility] Comment on above: Order Comment: Speci men Type: URINE SPECIMENOrdering Facility: [facility] Address: [address] [place] [address] Performed By: #### 2 4356-8 ####[facility]ATORYCLIA [id number] [address] RBC LM.HPF (Urine sed) [#/Area] 6-10 /HPF Abnormal 0-3 /HPF [facility] Comment on above: Order Comment: Speci men Type: URINE SPECIMENOrdering Facility: [facility] Address: [address] [place] [address] Performed By: #### 2 4356-8 ####[facility]ORATORYCLIA [id number] [address] Specific gravity (U) [Rel density] 1.008 Normal 1.005-1.030 [facility] Comment on above: Order Comment: Speci men Type: URINE SPECIMENOrdering Facility: [facility] Address: [address] [place] [address] Performed By: #### 2 4356-8 ####[facility]ATORYCLIA [id number] [address] Urobilinogen Ql (U) Normal Normal Negative [facility] Comment on above: Order Comment: Speci men Type: URINE SPECIMENOrdering Facility: [facility] Address: [address] [place] [address] Performed By: #### 2 4356-8 ####[facility]ORATORYCLIA [id number] [address] WBC LM.HPF (Urine sed) [#/Area] 0-5 /HPF Normal 0-5 /HPF [facility] Comment on above: Order Comment: Speci men Type: URINE SPECIMENOrdering Facility: [facility] Address: [address] [place] [address] Performed By: #### 2 4356-8 ####[facility]ORATORYCLIA [id number] [address] Vancomycin random [Mass/Vol] on 07-19-2021 Vancomycin [Mass/Vol] 13.9 ug/mL Normal 10.0-20.0 [facility] Comment on above: Order Comment: Speci men Type: BLOOD SPECIMENOrdering Facility: [facility] Address: [address] [place] [address] Result Comment: Refe rence ranges and high/low indicator flags are provided as general guidelines only. The treating physician must determine appropriate target levels/dosing based on the specific clinical situation. Performed By: #### 4 091-5 ####[facility]ORATORYCLIA [id number] [address] [place] aPTT PPPon 07-19-2021 aPTT Coag (PPP) [Time] 53.9 s High 23.0-32.4 [facility] Comment on above: Order Comment: Speci men Type: BLOOD SPECIMENOrdering Facility: [facility] Address: [address] [place] [address] Performed By: #### 1 4979-9 ####[facility]ORATORYCLIA [id number] [place] [address] [place] Basic metabolic 2000 panelon 07-18-2021 Anion gap [Moles/Vol] 6 mmol/L Low 9-18 [facility] Comment on above: Order Comment: Speci men Type: BLOOD SPECIMENOrdering Facility: [facility] Address: [address] [place] [address] Performed By: #### 2 4321-2, , 2777-1 ####[facility]ORATORYCLIA [id number] [place] [address] [place] Calcium [Mass/Vol] 9.4 mg/dL Normal 8.5-10.2 [facility] Comment on above: Order Comment: Speci men Type: BLOOD SPECIMENOrdering Facility: [facility] Address: [address] [place] [address] Performed By: #### 2 4321-2, , 2777-1 ####[facility]ORATORYCLIA [id number] [address] [place] Chloride [Moles/Vol] 103 mmol/L Normal 97-105 [facility] Comment on above: Order Comment: Speci francia Type: BLOOD SPECIMENOrdering Facility: [facility] Address: [address] [place] [address] Performed By: #### 2 4321-2, 06129-3, 277-1 ####[facility]ORATORYCLIA [id number] [place] [id number] [place] CO2 [Moles/Vol] 34 mmol/L High 22-30 [facility] Comment on above: Order Comment: Speci men Type: BLOOD SPECIMENOrdering Facility: [facility] Address: [address] [place] [address] Performed By: #### 2 4321-2, , 2776-05 ####[facility] [id number] [address] Creatinine [Mass/Vol] 0.75 mg/dL Normal 0.73-1.22 [facility] Comment on above: Order Comment: Speci men Type: BLOOD SPECIMENOrdering Facility: [facility] Address: [address] [place] [address] Performed By: #### 2 4321-2, , 2777 ####[facility]ATORYCLIA [id number] [address] ESTIMATED GLOMERULAR FILTRATION RATE 98 mL/min/1.73m??? Normal >=60 [facility] Comment on above: Order Comment: Speci men Type: BLOOD SPECIMENOrdering Facility: [facility] Address: [address] [place] [address] Result Comment: Luzmaria mated Glomerular Filtration Rate [...] 4321-2, , 2776-05 ####[facility]ITALCLIA [id number] [place] [address] [place] Glucose [Mass/Vol] 125 mg/dL High 74-99 [facility] Comment on above: Order Comment: Shira feldman Type: BLOOD SPECIMENOrdering Facility: [facility] Address: [address] [place], [place] [id number] Result Comment: The [place] [employer] (ADA) provides guidance for cutoff [...] Standards of Medical Care in Diabetes 2016, [place] Diabetes Association. Diabetes Care. 2016.39(Suppl 1). Performed By: #### 2 4321-2, , 2776-05 ####[facility]ITAL[facility] [id number] [place] [address] [place] Potassium [Moles/Vol] 4.4 mmol/L Normal 3.7-5.1 [facility] Comment on above: Order Comment: Shira feldman Type: BLOOD SPECIMENOrdering Facility: [facility] Address: [address] [id number] Performed By: #### 2 4321-2, , 2776-05 ####[facility]ATORYCLIA [id number] [place] [address] [place] Sodium [Moles/Vol] 143 mmol/L Normal 136-144 [facility] Comment on above: Order Comment: Shira feldman Type: BLOOD SPECIMENOrdering Facility: [facility] Address: [address] [address] Performed By: #### 2 4321-2, 68483-0, 2777-1 ####[facility]ORATORYCLIA [id number] [place] [address] [place] Urea nitrogen [Mass/Vol] 33 mg/dL High 9-24 [facility] Comment on above: Order Comment: Speci men Type: BLOOD SPECIMENOrdering Facility: [facility] Address: [address] [place] [address] Performed By: #### 2 4321-2, , 2776-05 ####[facility]ATORYCLIA [id number] [address] [place] CASE MANAGEMon 07-18-2021 CASE MANAGEM Normal [facility] CBC W Auto Differential pane l (Bld)on 07-18-2021 Basophils (Bld) [#/Vol] 0.05 10*3/uL Normal <0.11 [facility] Comment on above: Order Comment: Speci men Type: BLOOD SPECIMENOrdering Facility: [facility] Address: [address] [place] [address] Performed By: #### 5 7021-8 ####[facility]ATORYCLIA [id number] [address] [place] Basophils/100 WBC (Bld) 0.5 % Normal [facility] Comment on above: Order Comment: Speci men Type: BLOOD SPECIMENOrdering Facility: [facility] Address: [address] [place] [address] Performed By: #### 5 7021-8 ####[facility]ATORYCLIA [id number] [address] STATES [facility] Differential cell count method Nom (Bld) Auto Normal [facility] Comment on above: Order Comment: Speci men Type: BLOOD SPECIMENOrdering Facility: [facility] Address: [address] [place] [address] Performed By: #### 5 7021-8 ####[facility]ATORYCLIA [id number] [address] [place] Eosinophils (Bld) [#/Vol] 0.44 10*3/uL Normal <0.46 [facility] Comment on above: Order Comment: Speci men Type: BLOOD SPECIMENOrdering Facility: [facility] Address: [address] [place] [address] Performed By: #### 5 7021-8 ####[facility]ATORYCLIA [id number] [address] Eosinophils/100 WBC (Bld) 4.3 % Normal [facility] Comment on above: Order Comment: Speci men Type: BLOOD SPECIMENOrdering Facility: [facility] Address: [address] [place] [address] Performed By: #### 5 7021-8 ####[facility]ATORYCLIA [id number] [address] Erythrocyte distribution width (RBC) [Ratio] 16.6 % High 11.5-15.0 [facility] Comment on above: Order Comment: Speci men Type: BLOOD SPECIMENOrdering Facility: [facility] Address: [address] [place] [address] Performed By: #### 5 7021-8 ####[facility]ORATORYCLIA [id number] [address] [place] Hematocrit (Bld) [Volume fraction] 32.2 % Low 39.0-51.0 [facility] Comment on above: Order Comment: Speci men Type: BLOOD SPECIMENOrdering Facility: [facility] Address: [address] [place] [address] Performed By: #### 5 7021-8 ####[facility]ATORYCLIA [id number] [address] Hemoglobin (Bld) [Mass/Vol] 9.5 g/dL Low 13.0-17.0 [facility] Comment on above: Order Comment: Speci men Type: BLOOD SPECIMENOrdering Facility: [facility] Address: [address] [place] [address] Performed By: #### 5 7021-8 ####[facility]ATORYCLIA [id number] [address] IMMATURE GRAN % 0.4 % Normal [facility] Comment on above: Order Comment: Speci men Type: BLOOD SPECIMENOrdering Facility: [facility] Address: [address] [place] [address] Performed By: #### 5 7021-8 ####[facility]ATORYCLIA [id number] [address] IMMATURE GRAN ABS 0.04 k/uL Normal <0.10 [facility] Comment on above: Order Comment: Speci men Type: BLOOD SPECIMENOrdering Facility: [facility] Address: [address] [place] [address] Performed By: #### 5 7021-8 ####[facility]ORATORYCLIA [id number] [address] Lymphocytes (Bld) [#/Vol] 1.71 10*3/uL Normal 1.00-4.00 [facility] Comment on above: Order Comment: Speci men Type: BLOOD SPECIMENOrdering Facility: [facility] Address: [address] [place] [address] Performed By: #### 5 7021-8 ####[facility]ATORYCLIA [id number] [address] Lymphocytes/100 WBC (Bld) 16.9 % Normal [facility] Comment on above: Order Comment: Speci men Type: BLOOD SPECIMENOrdering Facility: [facility] Address: [address] [place] [address] Performed By: #### 5 7021-8 ####[facility]ATORYCLIA [id number] [address] [place] MCH (RBC) [Entitic mass] 27.9 pg Normal 26.0-34.0 [facility] Comment on above: Order Comment: Speci men Type: BLOOD SPECIMENOrdering Facility: [facility] Address: [address] [place] [address] Performed By: #### 5 7021-8 ####[facility]ATORYCLIA [id number] [address] MCHC (RBC) [Mass/Vol] 29.5 g/dL Low 30.5-36.0 [facility] Comment on above: Order Comment: Speci men Type: BLOOD SPECIMENOrdering Facility: [facility] Address: [address] [place] [address] Performed By: #### 5 7021-8 ####[facility]ORATORYCLIA [id number] [address] MCV (RBC) [Entitic vol] 94.7 fL Normal 80.0-100.0 [facility] Comment on above: Order Comment: Speci men Type: BLOOD SPECIMENOrdering Facility: [facility] Address: [address] [place] [address] Performed By: #### 5 7021-8 ####[facility]ATORYCLIA [id number] [address] Monocytes (Bld) [#/Vol] 0.69 10*3/uL Normal <0.87 [facility] Comment on above: Order Comment: Speci men Type: BLOOD SPECIMENOrdering Facility: [facility] Address: [address] [place] [address] Performed By: #### 5 7021-8 ####[facility]ATORYCLIA [id number] [address] Monocytes/100 WBC (Bld) 6.8 % Normal [facility] Comment on above: Order Comment: Speci men Type: BLOOD SPECIMENOrdering Facility: [facility] Address: [address] [place] [address] Performed By: #### 5 7021-8 ####[facility]ORATORYCLIA [id number] [place] [address] [place] Neutrophils (Bld) [#/Vol] 7.19 10*3/uL Normal 1.45-7.50 [facility] Comment on above: Order Comment: Speci men Type: BLOOD SPECIMENOrdering Facility: [facility] Address: [address] [place] [address] Performed By: #### 5 7021-8 ####[facility]ATORYCLIA [id number] [address] [place] Neutrophils/100 WBC (Bld) 71.1 % Normal [facility] Comment on above: Order Comment: Speci men Type: BLOOD SPECIMENOrdering Facility: [facility] Address: [address] [place] [address] Performed By: #### 5 7021-8 ####[facility]ORATORYCLIA [id number] [address] [place] Nucleated RBC (Bld) [#/Vol] 10*3/uL Normal <0.01 [facility] Comment on above: Order Comment: Speci men Type: BLOOD SPECIMENOrdering Facility: [facility] Address: [address] [place] [address] Performed By: #### 5 7021-8 ####[facility]ORATORYCLIA [id number] [address] [place] Nucleated RBC/100 WBC (Bld) [Ratio] 0.0 /100 WBC Normal [facility] Comment on above: Order Comment: Speci men Type: BLOOD SPECIMENOrdering Facility: [facility] Address: [address] [place] [address] Performed By: #### 5 7021-8 ####[facility]ORATORYCLIA [id number] [address] [place] Platelet mean volume (Bld) [Entitic vol] 10.3 fL Normal 9.0-12.7 [facility] Comment on above: Order Comment: Speci men Type: BLOOD SPECIMENOrdering Facility: [facility] Address: [address] [place] [address] Performed By: #### 5 7021-8 ####[facility]ORATORYCLIA [id number] [address] OF [facility] Platelets (Bld) [#/Vol] 403 10*3/uL High 150-400 [facility] Comment on above: Order Comment: Speci men Type: BLOOD SPECIMENOrdering Facility: [facility] Address: [address] [place] [address] Performed By: #### 5 7021-8 ####[facility]ORATORYCLIA [id number] [address] STATES OF [facility] RBC (Bld) [#/Vol] 3.40 10*6/uL Low 4.20-6.00 [facility] Comment on above: Order Comment: Speci men Type: BLOOD SPECIMENOrdering Facility: [facility] Address: [address] [place] [address] Performed By: #### 5 7021-8 ####[facility]ATORYCLIA [id number] [address] OF [facility] WBC (Bld) [#/Vol] 10.12 10*3/uL Normal 3.70-11.00 [facility] Comment on above: Order Comment: Speci men Type: BLOOD SPECIMENOrdering Facility: [facility] Address: [address] [place] [address] Performed By: #### 5 7021-8 ####[facility]ATORYCLIA [id number] [address] OF [facility] Magnesium SerPl-mCncon 07-18 Magnesium [Mass/Vol] 2.4 mg/dL High 1.7-2.3 [facility] Comment on above: Order Comment: Speci men Type: BLOOD SPECIMENOrdering Facility: [facility] Address: [address] [place] [address] Performed By: #### 2 4321-2, 33136-3, 2777-1 ####[facility]ATORYCLIA [id number] [address] [place] NURSING PROGon 07-18-2021 NURSING PROG Normal [facility] NURSING PROG Normal [facility] Phosphate SerPl-mCncon 07-18 Phosphate [Mass/Vol] 3.9 mg/dL Normal 2.7-4.8 [facility] Comment on above: Order Comment: Speci men Type: BLOOD SPECIMENOrdering Facility: [facility] Address: [address] [place] [address] Performed By: #### 2 4321-2, 84740-4, 2777-1 ####[facility]ATORYCLIA [id number] [address] THERAPY NTon 07-18-2021 THERAPY NT Normal [facility] aPTT PPPon 07-18-2021 aPTT Coag (PPP) [Time] 52.3 s High 23.0-32.4 [facility] Comment on above: Order Comment: Speci men Type: BLOOD SPECIMENOrdering Facility: [facility] Address: [address] [place] [address] Performed By: #### 1 4979-9 ####[facility]ATORYCLIA [id number] [address] CBC W Auto Differential pane l (Bld)on 07-17-2021 Basophils (Bld) [#/Vol] 0.05 10*3/uL Normal <0.11 [facility] Comment on above: Order Comment: Speci men Type: BLOOD SPECIMENOrdering Facility: [facility] Address: [address] [place] [address] Performed By: #### 5 7021-8 ####[facility]ATORYCLIA [id number] [address] Basophils/100 WBC (Bld) 0.5 % Normal [facility] Comment on above: Order Comment: Speci men Type: BLOOD SPECIMENOrdering Facility: [facility] Address: [address] [place] [address] Performed By: #### 5 7021-8 ####[facility]ATORYCLIA [id number] [address] Differential cell count method Nom (Bld) Auto Normal [facility] Comment on above: Order Comment: Speci men Type: BLOOD SPECIMENOrdering Facility: [facility] Address: [address] [place] [address] Performed By: #### 5 7021-8 ####[facility]ORATORYCLIA [id number] [address] [place] Eosinophils (Bld) [#/Vol] 0.32 10*3/uL Normal <0.46 [facility] Comment on above: Order Comment: Speci men Type: BLOOD SPECIMENOrdering Facility: [facility] Address: [address] [place] [address] Performed By: #### 5 7021-8 ####[facility]ATORYCLIA [id number] [address] Eosinophils/100 WBC (Bld) 3.4 % Normal [facility] Comment on above: Order Comment: Speci men Type: BLOOD SPECIMENOrdering Facility: [facility] Address: [address] [place] [address] Performed By: #### 5 7021-8 ####[facility]ATORYCLIA [id number] [address] [place] Erythrocyte distribution width (RBC) [Ratio] 16.6 % High 11.5-15.0 [facility] Comment on above: Order Comment: Speci men Type: BLOOD SPECIMENOrdering Facility: [facility] Address: [address] [place] [address] Performed By: #### 5 7021-8 ####[facility]ATORYCLIA [id number] [address] Hematocrit (Bld) [Volume fraction] 30.7 % Low 39.0-51.0 [facility] Comment on above: Order Comment: Speci men Type: BLOOD SPECIMENOrdering Facility: [facility] Address: [address] [address] Performed By: #### 5 7021-8 ####[facility]ORYCLIA [id number] [address] [place] Hemoglobin (Bld) [Mass/Vol] 9.0 g/dL Low 13.0-17.0 [facility] Comment on above: Order Comment: Speci men Type: BLOOD SPECIMENOrdering Facility: [facility] Address: [address] [place] [address] Performed By: #### 5 7021-8 ####[facility]ORATORYCLIA [id number] [address] IMMATURE GRAN % 0.6 % Normal [facility] Comment on above: Order Comment: Speci men Type: BLOOD SPECIMENOrdering Facility: [facility] Address: [address] [place] [address] Performed By: #### 5 7021-8 ####[facility]ATORYCLIA [id number] [address] IMMATURE GRAN ABS 0.06 k/uL Normal <0.10 [facility] Comment on above: Order Comment: Speci men Type: BLOOD SPECIMENOrdering Facility: [facility] Address: [address] [place] [address] Performed By: #### 5 7021-8 ####[facility]ATORYCLIA [id number] [address] [place] Lymphocytes (Bld) [#/Vol] 1.61 10*3/uL Normal 1.00-4.00 [facility] Comment on above: Order Comment: Speci men Type: BLOOD SPECIMENOrdering Facility: [facility] Address: [address] [place] [address] Performed By: #### 5 7021-8 ####[facility]ORYCLIA [id number] [address] [place] Lymphocytes/100 WBC (Bld) 17.3 % Normal [facility] Comment on above: Order Comment: Speci men Type: BLOOD SPECIMENOrdering Facility: [facility] Address: [address] [place] [address] Performed By: #### 5 7021-8 ####[facility]ATORYCLIA [id number] [address] MCH (RBC) [Entitic mass] 26.9 pg Normal 26.0-34.0 [facility] Comment on above: Order Comment: Speci men Type: BLOOD SPECIMENOrdering Facility: [facility] Address: [address] [place] [address] Performed By: #### 5 7021-8 ####[facility]ATORYCLIA [id number] [address] MCHC (RBC) [Mass/Vol] 29.3 g/dL Low 30.5-36.0 [facility] Comment on above: Order Comment: Speci men Type: BLOOD SPECIMENOrdering Facility: [facility] Address: [address] [place] [address] Performed By: #### 5 7021-8 ####[facility]ORATORYCLIA [id number] [address] MCV (RBC) [Entitic vol] 91.9 fL Normal 80.0-100.0 [facility] Comment on above: Order Comment: Speci men Type: BLOOD SPECIMENOrdering Facility: [facility] Address: [address] [place] [address] Performed By: #### 5 7021-8 ####[facility]ATORYCLIA [id number] [address] Monocytes (Bld) [#/Vol] 0.61 10*3/uL Normal <0.87 [facility] Comment on above: Order Comment: Speci men Type: BLOOD SPECIMENOrdering Facility: [facility] Address: [address] [place] [address] Performed By: #### 5 7021-8 ####[facility]ATORYCLIA [id number] [address] [place] Monocytes/100 WBC (Bld) 6.6 % Normal [facility] Comment on above: Order Comment: Speci men Type: BLOOD SPECIMENOrdering Facility: [facility] Address: [address] [place] [address] Performed By: #### 5 7021-8 ####[facility]ORATORYCLIA [id number] [place] [address] [place] Neutrophils (Bld) [#/Vol] 6.64 10*3/uL Normal 1.45-7.50 [facility] Comment on above: Order Comment: Speci men Type: BLOOD SPECIMENOrdering Facility: [facility] Address: [address] [place] [address] Performed By: #### 5 7021-8 ####[facility]ORATORYCLIA [id number] [address] [place] Neutrophils/100 WBC (Bld) 71.6 % Normal [facility] Comment on above: Order Comment: Speci men Type: BLOOD SPECIMENOrdering Facility: [facility] Address: [address] [place] [address] Performed By: #### 5 7021-8 ####[facility]ORATORYCLIA [id number] [place] [address] [place] Nucleated RBC (Bld) [#/Vol] 10*3/uL Normal <0.01 [facility] Comment on above: Order Comment: Speci men Type: BLOOD SPECIMENOrdering Facility: [facility] Address: [address] [place] [address] Performed By: #### 5 7021-8 ####[facility]ATORYCLIA [id number] [address] [place] Nucleated RBC/100 WBC (Bld) [Ratio] 0.0 /100 WBC Normal [facility] Comment on above: Order Comment: Speci men Type: BLOOD SPECIMENOrdering Facility: [facility] Address: [address] [place] [address] Performed By: #### 5 7021-8 ####[facility]ORATORYCLIA [id number] [address] [place] Platelet mean volume (Bld) [Entitic vol] 10.1 fL Normal 9.0-12.7 [facility] Comment on above: Order Comment: Speci men Type: BLOOD SPECIMENOrdering Facility: [facility] Address: [address] [place] [address] Performed By: #### 5 7021-8 ####[facility]ORATORYCLIA [id number] [place] [address] [place] Platelets (Bld) [#/Vol] 387 10*3/uL Normal 150-400 [facility] Comment on above: Order Comment: Speci men Type: BLOOD SPECIMENOrdering Facility: [facility] Address: [address] [place] [address] Performed By: #### 5 7021-8 ####[facility]ORATORYCLIA [id number] [place] [address] [place] RBC (Bld) [#/Vol] 3.34 10*6/uL Low 4.20-6.00 [facility] Comment on above: Order Comment: Speci men Type: BLOOD SPECIMENOrdering Facility: [facility] Address: [address] [place] [address] Performed By: #### 5 7021-8 ####[facility]ORATORYCLIA [id number] [place] [address] [place] WBC (Bld) [#/Vol] 9.29 10*3/uL Normal 3.70-11.00 [facility] Comment on above: Order Comment: Speci men Type: BLOOD SPECIMENOrdering Facility: [facility] Address: [address] [place], [place] [id number] Performed By: #### 5 7021-8 ####[facility]ORATORYCLIA [id number] [address] [place] CONSULT PROGon 07-17-2021 CONSULT PROG Normal [facility] Magnesium SerPl-ncon 07-17 Magnesium [Mass/Vol] 2.3 mg/dL Normal 1.7-2.3 [facility] Comment on above: Order Comment: Speci men Type: BLOOD SPECIMENOrdering Facility: [facility] Address: [address] [place] [address] Performed By: #### 2 777-1, ####[facility]ORATORYCLIA [id number] [address] NURSING PROGon 07-17-2021 NURSING PROG Normal [facility] NURSING PROG Normal [facility] NURSING PROG Normal [facility] Phosphate SerPl-mCncon 07-17 Phosphate [Mass/Vol] 3.6 mg/dL Normal 2.7-4.8 [facility] Comment on above: Order Comment: Speci men Type: BLOOD SPECIMENOrdering Facility: [facility] Address: [address] [place] [address] Performed By: #### 2 777-1, ####[facility]ORATORYCLIA [id number] [address] aPTT PPPon 07-17-2021 aPTT Coag (PPP) [Time] 57.2 s High 23.0-32.4 [facility] Comment on above: Order Comment: Speci men Type: BLOOD SPECIMENOrdering Facility: [facility] Address: [address] [place] [address] Performed By: #### 1 4979-9 ####[facility] LABORATORYCLIA [id number] [place] [address] [place] Basic metabolic 2000 panelon 07-16-2021 Anion gap [Moles/Vol] 5 mmol/L Low 9-18 [facility] Comment on above: Order Comment: Speci men Type: BLOOD SPECIMENOrdering Facility: [facility] Address: [address] [place] [address] Performed By: #### 2 777-1, , ####[facility] LABORATORYCLIA [id number] [place] [address] [place] Calcium [Mass/Vol] 9.1 mg/dL Normal 8.5-10.2 [facility] Comment on above: Order Comment: Speci men Type: BLOOD SPECIMENOrdering Facility: [facility] Address: [address] [place] [address] Performed By: #### 2 777-1, , ####[facility]ORATORYCLIA [id number] [place] [address] [place] Chloride [Moles/Vol] 101 mmol/L Normal 97-105 [facility] Comment on above: Order Comment: Speci men Type: BLOOD SPECIMENOrdering Facility: [facility] Address: [address] [place] [address] Performed By: #### 2 777-1, , ####[facility] LABORATORYCLIA [id number] [place] [address] [place] CO2 [Moles/Vol] 35 mmol/L High 22-30 [facility] Comment on above: Order Comment: Speci men Type: BLOOD SPECIMENOrdering Facility: [facility] Address: [address] [place] [address] Performed By: #### 2 777-1, , ####[facility] LABORATORYCLIA [id number] [place] [address] [place] Creatinine [Mass/Vol] 0.73 mg/dL Normal 0.73-1.22 [facility] Comment on above: Order Comment: Speci men Type: BLOOD SPECIMENOrdering Facility: [facility] Address: [address] [place] [address] Performed By: #### 2 777-1, , ####[facility] LABORATORYCLIA [id number] [address] [place] ESTIMATED GLOMERULAR FILTRATION RATE 98 mL/min/1.73m??? Normal >=60 [facility] Comment on above: Order Comment: Shira feldman Type: BLOOD SPECIMENOrdering Facility: [facility] Address: [address] [place] [address] Result Comment: Luzmaria mated Glomerular Filtration Rate [...] actual GFR. Performed By: #### 2 777-1, 48654-2, ####[facility]ITALCLIA [id number] [place] [address] [place] Glucose [Mass/Vol] 133 mg/dL High 74-99 [facility] Comment on above: Order Comment: Shira feldman Type: BLOOD SPECIMENOrdering Facility: [facility] Address: [address] [place] [address] Result Comment: The [place] [employer] Association (ADA) provides guidance for cutoff [...] Standards of Medical Care in Diabetes 2016, [place] [employer]. Diabetes Care. 2016.39(Suppl 1). Performed By: #### 2 777-1, 70781-4, 91367-3 ####[facility] LABORATORYCLIA [id number] [place] [id number] [place] Potassium [Moles/Vol] 4.2 mmol/L Normal 3.7-5.1 [facility] Comment on above: Order Comment: Speci men Type: BLOOD SPECIMENOrdering Facility: [facility] Address: [address] [place] [address] Performed By: #### 2 777-1, 72521-5, 27408-3 ####[facility] LABORATORYCLIA [id number] [address] STATES OF [facility] Sodium [Moles/Vol] 141 mmol/L Normal 136-144 [facility] Comment on above: Order Comment: Speci men Type: BLOOD SPECIMENOrdering Facility: [facility] Address: [address] [place] [address] Performed By: #### 2 777-1, 20347-9, ####[facility] LABORATORYCLIA [id number] [address] [place] Urea nitrogen [Mass/Vol] 21 mg/dL Normal 9-24 [facility] Comment on above: Order Comment: Speci men Type: BLOOD SPECIMENOrdering Facility: [facility] Address: [address] [place] [address] Performed By: #### 2 777-1, 70220-9, ####[facility] LABORATORYCLIA [id number] [address] [place] CBC W Auto Differential pane l (Bld)on 07-16-2021 Basophils (Bld) [#/Vol] 0.06 10*3/uL Normal <0.11 [facility] Comment on above: Order Comment: Speci men Type: BLOOD SPECIMENOrdering Facility: [facility] Address: [address] [place] [address] Performed By: #### 5 7021-8 ####[facility] LABORATORYCLIA [id number] [address] Basophils/100 WBC (Bld) 0.7 % Normal [facility] Comment on above: Order Comment: Speci men Type: BLOOD SPECIMENOrdering Facility: [facility] Address: [address] [place] [address] Performed By: #### 5 7021-8 ####[facility] LABORATORYCLIA [id number] [address] Differential cell count method Nom (Bld) Auto Normal [facility] Comment on above: Order Comment: Speci men Type: BLOOD SPECIMENOrdering Facility: [facility] Address: [address] [place] [address] Performed By: #### 5 7021-8 ####[facility]ORATORYCLIA [id number] [address] Eosinophils (Bld) [#/Vol] 0.35 10*3/uL Normal <0.46 [facility] Comment on above: Order Comment: Speci men Type: BLOOD SPECIMENOrdering Facility: [facility] Address: [address] [place] [address] Performed By: #### 5 7021-8 ####[facility] LABORATORYCLIA [id number] [address] Eosinophils/100 WBC (Bld) 3.9 % Normal [facility] Comment on above: Order Comment: Speci men Type: BLOOD SPECIMENOrdering Facility: [facility] Address: [address] [place] [address] Performed By: #### 5 7021-8 ####[facility] LABORATORYCLIA [id number] [address] Erythrocyte distribution width (RBC) [Ratio] 16.5 % High 11.5-15.0 [facility] Comment on above: Order Comment: Speci men Type: BLOOD SPECIMENOrdering Facility: [facility] Address: [address] [place] [address] Performed By: #### 5 7021-8 ####[facility] LABORATORYCLIA [id number] [address] Hematocrit (Bld) [Volume fraction] 30.9 % Low 39.0-51.0 [facility] Comment on above: Order Comment: Speci men Type: BLOOD SPECIMENOrdering Facility: [facility] Address: [address] [place] [address] Performed By: #### 5 7021-8 ####[facility]ORATORYCLIA [id number] [address] [place] Hemoglobin (Bld) [Mass/Vol] 9.1 g/dL Low 13.0-17.0 [facility] Comment on above: Order Comment: Speci men Type: BLOOD SPECIMENOrdering Facility: [facility] Address: [address] [place] [address] Performed By: #### 5 7021-8 ####[facility] LABORATORYCLIA [id number] [address] IMMATURE GRAN % 0.4 % Normal [facility] Comment on above: Order Comment: Speci men Type: BLOOD SPECIMENOrdering Facility: [facility] Address: [address] [place] [address] Performed By: #### 5 7021-8 ####[facility] LABORATORYCLIA [id number] [address] IMMATURE GRAN ABS 0.04 k/uL Normal <0.10 [facility] Comment on above: Order Comment: Speci men Type: BLOOD SPECIMENOrdering Facility: [facility] Address: [address] [place] [address] Performed By: #### 5 7021-8 ####[facility] LABORATORYCLIA [id number] [address] [place] Lymphocytes (Bld) [#/Vol] 1.35 10*3/uL Normal 1.00-4.00 [facility] Comment on above: Order Comment: Speci men Type: BLOOD SPECIMENOrdering Facility: [facility] Address: [address] [place] [address] Performed By: #### 5 7021-8 ####[facility]ORATORYCLIA [id number] [address] Lymphocytes/100 WBC (Bld) 15.0 % Normal [facility] Comment on above: Order Comment: Speci men Type: BLOOD SPECIMENOrdering Facility: [facility] Address: [address] [place] [address] Performed By: #### 5 7021-8 ####[facility] LABORATORYCLIA [id number] [address] MCH (RBC) [Entitic mass] 27.1 pg Normal 26.0-34.0 [facility] Comment on above: Order Comment: Speci men Type: BLOOD SPECIMENOrdering Facility: [facility] Address: [address] [place] [address] Performed By: #### 5 7021-8 ####[facility] LABORATORYCLIA [id number] [address] STATES [facility] MCHC (RBC) [Mass/Vol] 29.4 g/dL Low 30.5-36.0 [facility] Comment on above: Order Comment: Speci men Type: BLOOD SPECIMENOrdering Facility: [facility] Address: [address] [place] [address] Performed By: #### 5 7021-8 ####[facility] LABORATORYCLIA [id number] [address] MCV (RBC) [Entitic vol] 92.0 fL Normal 80.0-100.0 [facility] Comment on above: Order Comment: Speci men Type: BLOOD SPECIMENOrdering Facility: [facility] Address: [address] [place] [address] Performed By: #### 5 7021-8 ####[facility] LABORATORYCLIA [id number] [address] Monocytes (Bld) [#/Vol] 0.53 10*3/uL Normal <0.87 [facility] Comment on above: Order Comment: Speci men Type: BLOOD SPECIMENOrdering Facility: [facility] Address: [address] [place] [address] Performed By: #### 5 7021-8 ####[facility] LABORATORYCLIA [id number] [address] [place] Monocytes/100 WBC (Bld) 5.9 % Normal [facility] Comment on above: Order Comment: Speci men Type: BLOOD SPECIMENOrdering Facility: [facility] Address: [address] [place] [address] Performed By: #### 5 7021-8 ####[facility] LABORATORYCLIA [id number] [place] [address] [place] Neutrophils (Bld) [#/Vol] 6.67 10*3/uL Normal 1.45-7.50 [facility] Comment on above: Order Comment: Speci men Type: BLOOD SPECIMENOrdering Facility: [facility] Address: [address] [place] [address] Performed By: #### 5 7021-8 ####[facility] LABORATORYCLIA [id number] [address] [place] Neutrophils/100 WBC (Bld) 74.1 % Normal [facility] Comment on above: Order Comment: Speci men Type: BLOOD SPECIMENOrdering Facility: [facility] Address: [address] [place] [address] Performed By: #### 5 7021-8 ####[facility] LABORATORYCLIA [id number] [place] [address] [place] Nucleated RBC (Bld) [#/Vol] 10*3/uL Normal <0.01 [facility] Comment on above: Order Comment: Speci men Type: BLOOD SPECIMENOrdering Facility: [facility] Address: [address] [place] [address] Performed By: #### 5 7021-8 ####[facility] LABORATORYCLIA [id number] [address] [place] Nucleated RBC/100 WBC (Bld) [Ratio] 0.0 /100 WBC Normal [facility] Comment on above: Order Comment: Speci men Type: BLOOD SPECIMENOrdering Facility: [facility] Address: [address] [place] [address] Performed By: #### 5 7021-8 ####[facility] LABORATORYCLIA [id number] [address] [place] Platelet mean volume (Bld) [Entitic vol] 9.9 fL Normal 9.0-12.7 [facility] Comment on above: Order Comment: Speci men Type: BLOOD SPECIMENOrdering Facility: [facility] Address: [address] [place] [address] Performed By: #### 5 7021-8 ####[facility] LABORATORYCLIA [id number] [place] [address] [place] Platelets (Bld) [#/Vol] 391 10*3/uL Normal 150-400 [facility] Comment on above: Order Comment: Speci men Type: BLOOD SPECIMENOrdering Facility: [facility] Address: [address] [place] [address] Performed By: #### 5 7021-8 ####[facility] LABORATORYCLIA [id number] [place] [address] [place] RBC (Bld) [#/Vol] 3.36 10*6/uL Low 4.20-6.00 [facility] Comment on above: Order Comment: Speci men Type: BLOOD SPECIMENOrdering Facility: [facility] Address: [address] [place] [address] Performed By: #### 5 7021-8 ####[facility] LABORATORYCLIA [id number] [place] [address] [place] WBC (Bld) [#/Vol] 9.00 10*3/uL Normal 3.70-11.00 [facility] Comment on above: Order Comment: Speci men Type: BLOOD SPECIMENOrdering Facility: [facility] Address: [address] [place] [address] Performed By: #### 5 7021-8 ####[facility] LABORATORYCLIA [id number] [address] [place] CONSULT PROGon 07-16-2021 CONSULT PROG Normal [facility] CONSULT PROG Normal [facility] Magnesium SerPl-mCncon 07-16 Magnesium [Mass/Vol] 2.3 mg/dL Normal 1.7-2.3 [facility] Comment on above: Order Comment: Speci men Type: BLOOD SPECIMENOrdering Facility: [facility] Address: [address] [place] [address] Performed By: #### 2 777-1, 50735-9, 13624-3 ####[facility] LABORATORYCLIA [id number] [address] [place] NURSING PROGon 07-16-2021 NURSING PROG Normal [facility] Phosphate SerPl-mCncon 07-16 Phosphate [Mass/Vol] 3.6 mg/dL Normal 2.7-4.8 [facility] Comment on above: Order Comment: Speci men Type: BLOOD SPECIMENOrdering Facility: [facility] Address: [address] [place] [address] Performed By: #### 2 777-1, 92244-3, 43145-2 ####[facility] LABORATORYCLIA [id number] [address] [place] Vancomycin random [Mass/Vol] on 07-16-2021 Vancomycin [Mass/Vol] 16.9 ug/mL Normal 10.0-20.0 [facility] Comment on above: Order Comment: Speci men Type: BLOOD SPECIMENOrdering Facility: [facility] Address: [address] [place] [address] Result Comment: Refe rence ranges and high/low indicator flags are provided as general guidelines only. The treating physician must determine appropriate target levels/dosing based on the specific clinical situation. Performed By: #### 4 091-5 ####[facility] LABORATORYCLIA [id number] [address] [place] aPTT PPPon 07-16-2021 aPTT Coag (PPP) [Time] 57.2 s High 23.0-32.4 [facility] Comment on above: Order Comment: Speci men Type: BLOOD SPECIMENOrdering Facility: [facility] Address: [address] [place] [address] Performed By: #### 1 4979-9 ####[facility] LABORATORYCLIA [id number] [place] [address] [place] ALLIED HEALTHon 07-15-2021 ALLIED HEALTH Normal [facility] Basic metabolic 2000 panelon 07-15-2021 Anion gap [Moles/Vol] 11 mmol/L Normal 9-18 [facility] Comment on above: Order Comment: Speci men Type: BLOOD SPECIMENOrdering Facility: [facility] Address: [address] [place] [address] Performed By: #### 2 4321-2, , 2776-05 ####[facility] LABORATORYCLIA [id number] [place] [address] [place] Calcium [Mass/Vol] 8.8 mg/dL Normal 8.5-10.2 [facility] Comment on above: Order Comment: Speci men Type: BLOOD SPECIMENOrdering Facility: [facility] Address: [address] [place] [address] Performed By: #### 2 4321-2, , 2776-05 ####[facility] LABORATORYCLIA [id number] [place] [address] [place] Chloride [Moles/Vol] 101 mmol/L Normal 97-105 [facility] Comment on above: Order Comment: Speci men Type: BLOOD SPECIMENOrdering Facility: [facility] Address: [address] [place], [place] [address] Performed By: #### 2 4321-2, , 2776-05 ####[facility] LABORATORYCLIA [id number] [place] [address] [place] CO2 [Moles/Vol] 31 mmol/L High 22-30 [facility] Comment on above: Order Comment: Speci men Type: BLOOD SPECIMENOrdering Facility: [facility] Address: [address] [place], [place] [address] Performed By: #### 2 4321-2, 04218-5, 2776-05 ####[facility]ITALCLIA [id number] [place] [id number] [place] OF [facility] Creatinine [Mass/Vol] 0.76 mg/dL Normal 0.73-1.22 [facility] Comment on above: Order Comment: Speccara feldman Type: BLOOD SPECIMENOrdering Facility: [facility] Address: [address] [place] [address] Performed By: #### 2 4321-2, , 2776-05 ####[facility]ITALCLIA [id number] [place] [id number] [facility] ESTIMATED GLOMERULAR FILTRATION RATE 97 mL/min/1.73m??? Normal >=60 [facility] Comment on above: Order Comment: Speccara feldman Type: BLOOD SPECIMENOrdering Facility: [facility] Address: [address] [place] [address] Result Comment: Luzmaria mated Glomerular Filtration Rate [...] 2 4321-2, , 2776-05 ####[facility] LABORATORYCLIA [id number] [place] [id number] [place] Glucose [Mass/Vol] 115 mg/dL High 74-99 [facility] Comment on above: Order Comment: Speci men Type: BLOOD SPECIMENOrdering Facility: [facility] Address: [address] Result Comment: The [place] [employer] (ADA) provides guidance for cutoff [...] Standards of Medical Care in Diabetes 2016, [place] [employer]. Diabetes Care. 2016.39(Suppl 1). Performed By: #### 2 4321-2, , 2776-05 ####[facility] LABORATORYCLIA [id number] [place] [address] [place] Potassium [Moles/Vol] 4.0 mmol/L Normal 3.7-5.1 [facility] Comment on above: Order Comment: Shira feldman Type: BLOOD SPECIMENOrdering Facility: [facility] Address: [address] [place] [address] Performed By: #### 2 432-2, , 2776-05 ####[facility] LABORATORYCLIA [id number] [address] [place] Sodium [Moles/Vol] 143 mmol/L Normal 136-144 [facility] Comment on above: Order Comment: Shira feldman Type: BLOOD SPECIMENOrdering Facility: [facility] Address: [address] [place] [address] Performed By: #### 2 4321-2, , 2776-05 ####[facility] LABORATORYCLIA [id number] [place] [address] [place] Urea nitrogen [Mass/Vol] 17 mg/dL Normal 9-24 [facility] Comment on above: Order Comment: Johni francia Type: BLOOD SPECIMENOrdering Facility: [facility] Address: [address] [place] [address] Performed By: #### 2 4321-2, , 2776-05 ####[facility] LABORATORYCLIA [id number] [place] [address] [place] CASE MANAGEMon 07-15-2021 CASE MANAGEM Normal [facility] CBC panel Auto (Bld)on 07-15 Erythrocyte distribution width (RBC) [Ratio] 16.4 % High 11.5-15.0 [facility] Comment on above: Order Comment: Speci men Type: BLOOD SPECIMENOrdering Facility: [facility] Address: [address] [place] [address] Performed By: #### 5 8410-2 ####[facility] LABORATORYCLIA [id number] [address] Hematocrit (Bld) [Volume fraction] 30.3 % Low 39.0-51.0 [facility] Comment on above: Order Comment: Speci men Type: BLOOD SPECIMENOrdering Facility: [facility] Address: [address] [place] [address] Performed By: #### 5 8410-2 ####[facility] LABORATORYCLIA [id number] [address] OF [facility] Hemoglobin (Bld) [Mass/Vol] 9.2 g/dL Low 13.0-17.0 [facility] Comment on above: Order Comment: Speci men Type: BLOOD SPECIMENOrdering Facility: [facility] Address: [address] [place] [address] Performed By: #### 5 8410-2 ####[facility] LABORATORYCLIA [id number] [address] STATES OF [facility] MCH (RBC) [Entitic mass] 28.3 pg Normal 26.0-34.0 [facility] Comment on above: Order Comment: Speci men Type: BLOOD SPECIMENOrdering Facility: [facility] Address: [address] [place] [address] Performed By: #### 5 8410-2 ####[facility] LABORATORYCLIA [id number] [address] [place] MCHC (RBC) [Mass/Vol] 30.4 g/dL Low 30.5-36.0 [facility] Comment on above: Order Comment: Speci men Type: BLOOD SPECIMENOrdering Facility: [facility] Address: [address] [place] [address] Performed By: #### 5 8410-2 ####[facility] LABORATORYCLIA [id number] [address] MCV (RBC) [Entitic vol] 93.2 fL Normal 80.0-100.0 [facility] Comment on above: Order Comment: Speci men Type: BLOOD SPECIMENOrdering Facility: [facility] Address: [address] [place] [address] Performed By: #### 5 8410-2 ####[facility] LABORATORYCLIA [id number] [address] Nucleated RBC (Bld) [#/Vol] 10*3/uL Normal <0.01 [facility] Comment on above: Order Comment: Speci men Type: BLOOD SPECIMENOrdering Facility: [facility] Address: [address] [place] [address] Performed By: #### 5 8410-2 ####[facility] LABORATORYCLIA [id number] [address] Platelet mean volume (Bld) [Entitic vol] 9.9 fL Normal 9.0-12.7 [facility] Comment on above: Order Comment: Speci men Type: BLOOD SPECIMENOrdering Facility: [facility] Address: [address] [place] [address] Performed By: #### 5 8410-2 ####[facility] LABORATORYCLIA [id number] [address] Platelets (Bld) [#/Vol] 381 10*3/uL Normal 150-400 [facility] Comment on above: Order Comment: Speci men Type: BLOOD SPECIMENOrdering Facility: [facility] Address: [address] [place] [address] Performed By: #### 5 8410-2 ####[facility] LABORATORYCLIA [id number] [place] [address] [place] RBC (Bld) [#/Vol] 3.25 10*6/uL Low 4.20-6.00 [facility] Comment on above: Order Comment: Speci men Type: BLOOD SPECIMENOrdering Facility: [facility] Address: [address] [place] [address] Performed By: #### 5 8410-2 ####[facility] LABORATORYCLIA [id number] [address] [place] WBC (Bld) [#/Vol] 8.80 10*3/uL Normal 3.70-11.00 [facility] Comment on above: Order Comment: Speci men Type: BLOOD SPECIMENOrdering Facility: [facility] Address: [address] [place] [address] Performed By: #### 5 8410-2 ####[facility] LABORATORYCLIA [id number] [address] Magnesium SerPl-mCncon 07-15 Magnesium [Mass/Vol] 2.2 mg/dL Normal 1.7-2.3 [facility] Comment on above: Order Comment: Speci men Type: BLOOD SPECIMENOrdering Facility: [facility] Address: [address] [place] [address] Performed By: #### 2 4321-2, , 2777-1 ####[facility] LABORATORYCLIA [id number] [address] [place] NURSING PROGon 07-15-2021 NURSING PROG Normal [facility] NURSING PROG Normal [facility] NURSING PROG Normal [facility] NUTRITIONon 07-15-2021 NUTRITION Normal [facility] Phosphate SerPl-mCncon 07-15 Phosphate [Mass/Vol] 3.4 mg/dL Normal 2.7-4.8 [facility] Comment on above: Order Comment: Speci men Type: BLOOD SPECIMENOrdering Facility: [facility] Address: [address] [place] [address] Performed By: #### 2 4321-2, , 2777-1 ####[facility] LABORATORYCLIA [id number] [place] [address] [place] THERAPY NTon 07-15-2021 THERAPY NT Normal [facility] US DVT UPPER LTon 07-15-2021 US DVT UPPER LT Normal [facility] XR CHEST 1V FRONTALon 2021 XR CHEST 1V FRONTAL Normal [facility] aPTT PPPon 07-15-2021 aPTT Coag (PPP) [Time] 59.9 s High 23.0-32.4 [facility] Comment on above: Order Comment: Speci men Type: BLOOD SPECIMENOrdering Facility: [facility] Address: [address] [place] [address] Performed By: #### 1 4979-9 ####[facility] LABORATORYCLIA [id number] [place] [address] [place] Basic metabolic 2000 panelon 07-14-2021 Anion gap [Moles/Vol] 9 mmol/L Normal 9-18 [facility] Comment on above: Order Comment: Speci men Type: BLOOD SPECIMENOrdering Facility: [facility] Address: [address] [place] [address] Performed By: #### 1 9123-9, 2777-, 07345-2 ####[facility] LABORATORYCLIA [id number] [place] [address] [place] Calcium [Mass/Vol] 8.5 mg/dL Normal 8.5-10.2 [facility] Comment on above: Order Comment: Speci men Type: BLOOD SPECIMENOrdering Facility: [facility] Address: [address] [place] [address] Performed By: #### 1 9123-9, 2777-, 72304-8 ####[facility] LABORATORYCLIA [id number] [place] [address] [place] Chloride [Moles/Vol] 99 mmol/L Normal 97-105 [facility] Comment on above: Order Comment: Speci men Type: BLOOD SPECIMENOrdering Facility: [facility] Address: [address] [place] [address] Performed By: #### 1 9123-9, 2777-1, 72888-3 ####[facility] [id number] [address] CO2 [Moles/Vol] 31 mmol/L High 22-30 [facility] Comment on above: Order Comment: Speci men Type: BLOOD SPECIMENOrdering Facility: [facility] Address: [address] [place] [address] Performed By: #### 1 9123-9, 2777, 64315-5 ####[facility] [id number] [address] Creatinine [Mass/Vol] 0.74 mg/dL Normal 0.73-1.22 [facility] Comment on above: Order Comment: Speci men Type: BLOOD SPECIMENOrdering Facility: [facility] Address: [address] [place] [address] Performed By: #### 1 9123-9, 2777, 02541-9 ####[facility] [id number] [address] ESTIMATED GLOMERULAR FILTRATION RATE 98 mL/min/1.73m??? Normal >=60 [facility] Comment on above: Order Comment: Speci men Type: BLOOD SPECIMENOrdering Facility: [facility] Address: [address] [place] [address] Result Comment: Luzmaria mated Glomerular Filtration Rate [...] GFR. Performed By: #### 1 9123-9, 2777-1, 47385-6 ####[facility]ATORYCLIA [id number] [place] [address] [place] Glucose [Mass/Vol] 117 mg/dL High 74-99 [facility] Comment on above: Order Comment: Speci men Type: BLOOD SPECIMENOrdering Facility: [facility] Address: [address] [place] [address] Result Comment: The [place] [employer] (ADA) provides guidance for cutoff [...] Standards of Medical Care in Diabetes 2016, [place] [employer]. Diabetes Care. 2016.39(Suppl 1). Performed By: #### 1 9123-9, 2777-, 68348-8 ####[facility]ORYCLIA [id number] [place] [address] [place] Potassium [Moles/Vol] 3.7 mmol/L Normal 3.7-5.1 [facility] Comment on above: Order Comment: Shira feldman Type: BLOOD SPECIMENOrdering Facility: [facility] Address: [address] [place], [place] [address] Performed By: #### 1 9123-9, 2777-, 69531-1 ####[facility]ATORYCLIA [id number] [place] [address] [place] Sodium [Moles/Vol] 139 mmol/L Normal 136-144 [facility] Comment on above: Order Comment: Shira francia Type: BLOOD SPECIMENOrdering Facility: [facility] Address: [address] [place] [address] Performed By: #### 1 9123-9, 2777-1, 92285-7 ####[facility]ATORYCLIA [id number] [place] [address] [place] Urea nitrogen [Mass/Vol] 16 mg/dL Normal 9-24 [facility] Comment on above: Order Comment: Speci men Type: BLOOD SPECIMENOrdering Facility: [facility] Address: [address] [place] [address] Performed By: #### 1 9123-9, 2777-1, 62871-1 ####[facility]ORYCLIA [id number] [address] STATES OF [facility] CBC panel Auto (Bld)on 07-14 Erythrocyte distribution width (RBC) [Ratio] 16.2 % High 11.5-15.0 [facility] Comment on above: Order Comment: Speci men Type: BLOOD SPECIMENOrdering Facility: [facility] Address: [address] [place] [address] Performed By: #### 5 8410-2 ####[facility]ATORYCLIA [id number] [address] [place] Hematocrit (Bld) [Volume fraction] 29.7 % Low 39.0-51.0 [facility] Comment on above: Order Comment: Speci men Type: BLOOD SPECIMENOrdering Facility: [facility] Address: [address] [place] [address] Performed By: #### 5 8410-2 ####[facility]ORYCLIA [id number] [address] STATES OF [facility] Hemoglobin (Bld) [Mass/Vol] 8.8 g/dL Low 13.0-17.0 [facility] Comment on above: Order Comment: Speci men Type: BLOOD SPECIMENOrdering Facility: [facility] Address: [address] [place] [address] Performed By: #### 5 8410-2 ####[facility]ORYCLIA [id number] [address] OF [place] MCH (RBC) [Entitic mass] 27.5 pg Normal 26.0-34.0 [facility] Comment on above: Order Comment: Speci men Type: BLOOD SPECIMENOrdering Facility: [facility] Address: [address] [place] [address] Performed By: #### 5 8410-2 ####[facility]ORYCLIA [id number] [address] MCHC (RBC) [Mass/Vol] 29.6 g/dL Low 30.5-36.0 [facility] Comment on above: Order Comment: Speci men Type: BLOOD SPECIMENOrdering Facility: [facility] Address: [address] [place] [address] Performed By: #### 5 8410-2 ####[facility]ORYCLIA [id number] [address] MCV (RBC) [Entitic vol] 92.8 fL Normal 80.0-100.0 [facility] Comment on above: Order Comment: Speci men Type: BLOOD SPECIMENOrdering Facility: [facility] Address: [address] [place] [address] Performed By: #### 5 8410-2 ####[facility]ORYCLIA [id number] [address] Nucleated RBC (Bld) [#/Vol] 10*3/uL Normal <0.01 [facility] Comment on above: Order Comment: Speci men Type: BLOOD SPECIMENOrdering Facility: [facility] Address: [address] [place] [address] Performed By: #### 5 8410-2 ####[facility]ORYCLIA [id number] [address] Platelet mean volume (Bld) [Entitic vol] 9.6 fL Normal 9.0-12.7 [facility] Comment on above: Order Comment: Speci men Type: BLOOD SPECIMENOrdering Facility: [facility] Address: [address] [place] [address] Performed By: #### 5 8410-2 ####[facility]ORYCLIA [id number] [address] Platelets (Bld) [#/Vol] 354 10*3/uL Normal 150-400 [facility] Comment on above: Order Comment: Speci men Type: BLOOD SPECIMENOrdering Facility: [facility] Address: [address] [place] [address] Performed By: #### 5 8410-2 ####[facility]ATORYCLIA [id number] [place] [address] [place] RBC (Bld) [#/Vol] 3.20 10*6/uL Low 4.20-6.00 [facility] Comment on above: Order Comment: Speci men Type: BLOOD SPECIMENOrdering Facility: [facility] Address: [address] [place] [address] Performed By: #### 5 8410-2 ####[facility]ATORYCLIA [id number] [address] WBC (Bld) [#/Vol] 9.41 10*3/uL Normal 3.70-11.00 [facility] Comment on above: Order Comment: Speci men Type: BLOOD SPECIMENOrdering Facility: [facility] Address: [address] [place] [address] Performed By: #### 5 8410-2 ####[facility]ATORYCLIA [id number] [address] OF [facility] CONSULT PROGon 07-14-2021 CONSULT PROG Normal [facility] Magnesium SerPl-mCncon 07-14 Magnesium [Mass/Vol] 2.2 mg/dL Normal 1.7-2.3 [facility] Comment on above: Order Comment: Speci men Type: BLOOD SPECIMENOrdering Facility: [facility] Address: [address] [place] [address] Performed By: #### 1 9123-9, 2777-1, 17608-2 ####[facility]ATORYCLIA [id number] [address] [place] NURSING PROGon 07-14-2021 NURSING PROG Normal [facility] Phosphate SerPl-mCncon 07-14 Phosphate [Mass/Vol] 3.6 mg/dL Normal 2.7-4.8 [facility] Comment on above: Order Comment: Speci men Type: BLOOD SPECIMENOrdering Facility: [facility] Address: [address] [place] [address] Performed By: #### 1 9123-9, 2777-1, 34593-8 ####[facility]ATORYCLIA [id number] [address] aPTT PPPon 07-14-2021 aPTT Coag (PPP) [Time] 62.9 s High 23.0-32.4 [facility] Comment on above: Order Comment: Speci men Type: BLOOD SPECIMENOrdering Facility: [facility] Address: [address] [place] [address] Performed By: #### 1 4979-9 ####[facility] [id number] [address] aPTT Coag (PPP) [Time] 55.2 s High 23.0-32.4 [facility] Comment on above: Order Comment: Speci men Type: BLOOD SPECIMENOrdering Facility: [facility] Address: [address] [place] [address] Performed By: #### 1 4979-9 ####[facility] [id number] [address] [place] Basic metabolic 2000 panelon 07-13-2021 Anion gap [Moles/Vol] 10 mmol/L Normal 9-18 [facility] Comment on above: Order Comment: Speci men Type: BLOOD SPECIMENOrdering Facility: [facility] Address: [address] [place] [address] Performed By: #### 1 9123-9, 2777-1, 23292-6 ####[facility]ATORYCLIA [id number] [address] OF [facility] Calcium [Mass/Vol] 8.5 mg/dL Normal 8.5-10.2 [facility] Comment on above: Order Comment: Speci men Type: BLOOD SPECIMENOrdering Facility: [facility] Address: [address] [place] [address] Performed By: #### 1 9123-9, 27711-04, 35549-4 ####[facility]ATORYCLIA [id number] [address] [place] Chloride [Moles/Vol] 98 mmol/L Normal 97-105 [facility] Comment on above: Order Comment: Speci men Type: BLOOD SPECIMENOrdering Facility: [facility] Address: [address] [place] [address] Performed By: #### 1 9123-9, 2776-05, 88431-4 ####[facility]ORYCLIA [id number] [address] STATES [place] CO2 [Moles/Vol] 32 mmol/L High 22-30 [facility] Comment on above: Order Comment: Speci men Type: BLOOD SPECIMENOrdering Facility: [facility] Address: [address] [place] [address] Performed By: #### 1 9123-9, 2776-05, ####[facility]ATORYCLIA [id number] [address] STATES OF [facility] Creatinine [Mass/Vol] 0.75 mg/dL Normal 0.73-1.22 [facility] Comment on above: Order Comment: Speci men Type: BLOOD SPECIMENOrdering Facility: [facility] Address: [address] [place] [address] Performed By: #### 1 9123-9, 27711-04, 78500-4 ####[facility]ATORYCLIA [id number] [address] ESTIMATED GLOMERULAR FILTRATION RATE 98 mL/min/1.73m??? Normal >=60 [facility] Comment on above: Order Comment: Speci men Type: BLOOD SPECIMENOrdering Facility: [facility] Address: [address] [place] [address] Result Comment: Luzmaria mated Glomerular Filtration Rate [...] GFR. Performed By: #### 1 9123-9, 2777-, 69029-7 ####[facility] [id number] [place] [address] [place] Glucose [Mass/Vol] 118 mg/dL High 74-99 [facility] Comment on above: Order Comment: Shira feldman Type: BLOOD SPECIMENOrdering Facility: [facility] Address: [address] [place] [address] Result Comment: The [place] [employer] (ADA) provides guidance for cutoff [...] Standards of Medical Care in Diabetes 2016, [place] [employer]. Diabetes Care. 2016.39(Suppl 1). Performed By: #### 1 9123-9, 2777-, 46525-3 ####[facility] [id number] [place] [address] [place] Potassium [Moles/Vol] 3.6 mmol/L Low 3.7-5.1 [facility] Comment on above: Order Comment: Shira feldman Type: BLOOD SPECIMENOrdering Facility: [facility] Address: [address] [place], [place] [address] Performed By: #### 1 9123-9, 2777-, 20131-1 ####[facility]ORATORYCLIA [id number] [place], [place] [address] [place] [address] [place] Sodium [Moles/Vol] 140 mmol/L Normal 136-144 [facility] Comment on above: Order Comment: Speci men Type: BLOOD SPECIMENOrdering Facility: [facility] Address: [address] [place] [address] Performed By: #### 1 9123-9, 2777-, 51827-6 ####[facility]ATORYCLIA [id number] [address] [place] Urea nitrogen [Mass/Vol] 15 mg/dL Normal 9-24 [facility] Comment on above: Order Comment: Speci men Type: BLOOD SPECIMENOrdering Facility: [facility] Address: [address] [place] [address] Performed By: #### 1 9123-9, 2777, 35650-8 ####[facility]ATORYCLIA [id number] [address] CASE MANAGEMon 07-13-2021 CASE MANAGEM Normal [facility] CBC panel Auto (Bld)on 07-13 Erythrocyte distribution width (RBC) [Ratio] 16.2 % High 11.5-15.0 [facility] Comment on above: Order Comment: Speci men Type: BLOOD SPECIMENOrdering Facility: [facility] Address: [address] [place] [address] Performed By: #### 5 8410-2 ####[facility]ORATORYCLIA [id number] [address] STATES [facility] Hematocrit (Bld) [Volume fraction] 29.5 % Low 39.0-51.0 [facility] Comment on above: Order Comment: Speci men Type: BLOOD SPECIMENOrdering Facility: [facility] Address: [address] [place] [address] Performed By: #### 5 8410-2 ####[facility]ATORYCLIA [id number] [address] [place] Hemoglobin (Bld) [Mass/Vol] 8.9 g/dL Low 13.0-17.0 [facility] Comment on above: Order Comment: Speci men Type: BLOOD SPECIMENOrdering Facility: [facility] Address: [address] [place] [address] Performed By: #### 5 8410-2 ####[facility]ORATORYCLIA [id number] [address] MCH (RBC) [Entitic mass] 27.8 pg Normal 26.0-34.0 [facility] Comment on above: Order Comment: Speci men Type: BLOOD SPECIMENOrdering Facility: [facility] Address: [address] [place] [address] Performed By: #### 5 8410-2 ####[facility]ORATORYCLIA [id number] [address] MCHC (RBC) [Mass/Vol] 30.2 g/dL Low 30.5-36.0 [facility] Comment on above: Order Comment: Speci men Type: BLOOD SPECIMENOrdering Facility: [facility] Address: [address] [place] [address] Performed By: #### 5 8410-2 ####[facility]ORATORYCLIA [id number] [address] MCV (RBC) [Entitic vol] 92.2 fL Normal 80.0-100.0 [facility] Comment on above: Order Comment: Speci men Type: BLOOD SPECIMENOrdering Facility: [facility] Address: [address] [place] [address] Performed By: #### 5 8410-2 ####[facility]ORATORYCLIA [id number] [address] Nucleated RBC (Bld) [#/Vol] 10*3/uL Normal <0.01 [facility] Comment on above: Order Comment: Speci men Type: BLOOD SPECIMENOrdering Facility: [facility] Address: [address] Performed By: #### 5 8410-2 ####[facility]ORATORYCLIA [id number] [address] STATES [facility] Platelet mean volume (Bld) [Entitic vol] 9.8 fL Normal 9.0-12.7 [facility] Comment on above: Order Comment: Speci men Type: BLOOD SPECIMENOrdering Facility: [facility] Address: [address] [place] [address] Performed By: #### 5 8410-2 ####[facility]ORATORYCLIA [id number] [place] [address] [place] Platelets (Bld) [#/Vol] 356 10*3/uL Normal 150-400 [facility] Comment on above: Order Comment: Speci men Type: BLOOD SPECIMENOrdering Facility: [facility] Address: [address] [place] [address] Performed By: #### 5 8410-2 ####[facility]ORATORYCLIA [id number] [address] [place] RBC (Bld) [#/Vol] 3.20 10*6/uL Low 4.20-6.00 [facility] Comment on above: Order Comment: Speci men Type: BLOOD SPECIMENOrdering Facility: [facility] Address: [address] [place] [address] Performed By: #### 5 8410-2 ####[facility]ORATORYCLIA [id number] [address] [place] WBC (Bld) [#/Vol] 9.20 10*3/uL Normal 3.70-11.00 [facility] Comment on above: Order Comment: Speci men Type: BLOOD SPECIMENOrdering Facility: [facility] Address: [address] [place] [address] Performed By: #### 5 8410-2 ####[facility]ATORYCLIA [id number] [address] CONSULT PROGon 07-13-2021 CONSULT PROG Normal [facility] CONSULT PROG Normal [facility] CONSULT PROG Normal [facility] Magnesium SerPl-mCncon 07-13 Magnesium [Mass/Vol] 2.1 mg/dL Normal 1.7-2.3 [facility] Comment on above: Order Comment: Speci men Type: BLOOD SPECIMENOrdering Facility: [facility] Address: [address] [place] [address] Performed By: #### 1 9123-9, 2777-1, 27666-5 ####[facility]ATORYCLIA [id number] [address] Phosphate SerPl-mCncon 07-13 Phosphate [Mass/Vol] 3.7 mg/dL Normal 2.7-4.8 [facility] Comment on above: Order Comment: Speci men Type: BLOOD SPECIMENOrdering Facility: [facility] Address: [address] [place] [address] Performed By: #### 1 9123-9, 2777-1, 50458-6 ####[facility]ATORYCLIA [id number] [address] THERAPY NTon 07-13-2021 THERAPY NT Normal [facility] THERAPY NT Normal [facility] Vancomycin random [Mass/Vol] on 07-13-2021 Vancomycin [Mass/Vol] 31.7 ug/mL High 10.0-20.0 [facility] Comment on above: Order Comment: Speci men Type: BLOOD SPECIMENOrdering Facility: [facility] Address: [address] [place] [address] Result Comment: Refe rence ranges and high/low indicator flags are provided as general guidelines only. The treating physician must determine appropriate target levels/dosing based on the specific clinical situation. Performed By: #### 4 091-5 ####[facility]ATORYCLIA [id number] [address] [place] aPTT PPPon 07-13-2021 aPTT Coag (PPP) [Time] 47.3 s High 23.0-32.4 [facility] Comment on above: Order Comment: Speci men Type: BLOOD SPECIMENOrdering Facility: [facility] Address: [address] [place] [address] Performed By: #### 1 4979-9 ####[facility]ATORYCLIA [id number] [address] aPTT Coag (PPP) [Time] 51.2 s High 23.0-32.4 [facility] Comment on above: Order Comment: Speci men Type: BLOOD SPECIMENOrdering Facility: [facility] Address: [address] [place] [address] Performed By: #### 1 4979-9 ####[facility]ATORYCLIA [id number] [address] STATES OF [facility] aPTT Coag (PPP) [Time] 47.5 s High 23.0-32.4 [facility] Comment on above: Order Comment: Speci men Type: BLOOD SPECIMENOrdering Facility: [facility] Address: [address] [place] [address] Performed By: #### 1 4979-9 ####[facility]ORATORYCLIA [id number] [place] [address] [place] Basic metabolic 2000 panelon 07-12-2021 Anion gap [Moles/Vol] 7 mmol/L Low 9-18 [facility] Comment on above: Order Comment: Speci men Type: BLOOD SPECIMENOrdering Facility: [facility] Address: [address] [place] [address] Performed By: #### 1 9123-9, 2777-1, 83078-3 ####[facility]ORYCLIA [id number] [address] STATES OF [facility] Calcium [Mass/Vol] 8.3 mg/dL Low 8.5-10.2 [facility] Comment on above: Order Comment: Speci men Type: BLOOD SPECIMENOrdering Facility: [facility] Address: [address] [place] [address] Performed By: #### 1 9123-9, 2777-1, 36590-0 ####[facility]ATORYCLIA [id number] [place] [address] [place] Chloride [Moles/Vol] 101 mmol/L Normal 97-105 [facility] Comment on above: Order Comment: Speci men Type: BLOOD SPECIMENOrdering Facility: [facility] Address: [address] [place] [address] Performed By: #### 1 9123-9, 2777-1, 07794-6 ####[facility]ATORYCLIA [id number] [place] [address] [place] CO2 [Moles/Vol] 32 mmol/L High 22-30 [facility] Comment on above: Order Comment: Speci men Type: BLOOD SPECIMENOrdering Facility: [facility] Address: [address] [place] [address] Performed By: #### 1 9123-9, 2777-, 46014-9 ####[facility]ORYCLIA [id number] [place] [address] [place] Creatinine [Mass/Vol] 0.70 mg/dL Low 0.73-1.22 [facility] Comment on above: Order Comment: Speci men Type: BLOOD SPECIMENOrdering Facility: [facility] Address: [address] [place] [address] Performed By: #### 1 9123-9, 2777-, 57179-2 ####[facility]ORYCLIA [id number] [address] OF [place] ESTIMATED GLOMERULAR FILTRATION RATE 100 mL/min/1.73m??? Normal >=60 [facility] Comment on above: Order Comment: Speci men Type: BLOOD SPECIMENOrdering Facility: [facility] Address: [address] [place] [address] Result Comment: Luzmaria mated Glomerular Filtration Rate [...] GFR. Performed By: #### 1 9123-9, 2777-1, 39795-3 ####[facility]ORYCLIA [id number] [place] [address] [place] Glucose [Mass/Vol] 104 mg/dL High 74-99 [facility] Comment on above: Order Comment: Shira feldman Type: BLOOD SPECIMENOrdering Facility: [facility] Address: [address] [place], [place] [address] Result Comment: The [place] [employer] (ADA) provides guidance for cutoff [...] Standards of Medical Care in Diabetes 2016, [place] [employer]. Diabetes Care. 2016.39(Suppl 1). Performed By: #### 1 9123-9, 2776-, 03629-2 ####[facility]ATORYCLIA [id number] [place] [id number] [place] Potassium [Moles/Vol] 3.7 mmol/L Normal 3.7-5.1 [facility] Comment on above: Order Comment: Shira feldman Type: BLOOD SPECIMENOrdering Facility: [facility] Address: [address] [place] [address] Performed By: #### 1 9123-9, 2777-, 26939-0 ####[facility]ORYCLIA [id number] [place] [address] [place] Sodium [Moles/Vol] 140 mmol/L Normal 136-144 [facility] Comment on above: Order Comment: Speci men Type: BLOOD SPECIMENOrdering Facility: [facility] Address: [address] [place] [address] Performed By: #### 1 9123-9, 2777-1, 92682-3 ####[facility]ORYCLIA [id number] [address] STATES OF [facility] Urea nitrogen [Mass/Vol] 12 mg/dL Normal 9-24 [facility] Comment on above: Order Comment: Speci men Type: BLOOD SPECIMENOrdering Facility: [facility] Address: [address] [place] [address] Performed By: #### 1 9123-9, 2777-, 80776-6 ####[facility] LABORATORYCLIA [id number] [address] [place] OF [facility] CBC panel Auto (Bld)on 07-12 Erythrocyte distribution width (RBC) [Ratio] 16.1 % High 11.5-15.0 [facility] Comment on above: Order Comment: Speci men Type: BLOOD SPECIMENOrdering Facility: [facility] Address: [address] [place] [address] Performed By: #### 5 8410-2 ####[facility] LABORATORYCLIA [id number] [address] [place] Hematocrit (Bld) [Volume fraction] 28.2 % Low 39.0-51.0 [facility] Comment on above: Order Comment: Speci men Type: BLOOD SPECIMENOrdering Facility: [facility] Address: [address] [place] [address] Performed By: #### 5 8410-2 ####[facility] LABORATORYCLIA [id number] [address] STATES OF [facility] Hemoglobin (Bld) [Mass/Vol] 8.5 g/dL Low 13.0-17.0 [facility] Comment on above: Order Comment: Speci men Type: BLOOD SPECIMENOrdering Facility: [facility] Address: [address] [place] [address] Performed By: #### 5 8410-2 ####[facility] LABORATORYCLIA [id number] [address] MCH (RBC) [Entitic mass] 26.8 pg Normal 26.0-34.0 [facility] Comment on above: Order Comment: Speci men Type: BLOOD SPECIMENOrdering Facility: [facility] Address: [address] [place] [address] Performed By: #### 5 8410-2 ####[facility]ORATORYCLIA [id number] [address] MCHC (RBC) [Mass/Vol] 30.1 g/dL Low 30.5-36.0 [facility] Comment on above: Order Comment: Speci men Type: BLOOD SPECIMENOrdering Facility: [facility] Address: [address] [place] [address] Performed By: #### 5 8410-2 ####[facility]ORATORYCLIA [id number] [address] MCV (RBC) [Entitic vol] 89.0 fL Normal 80.0-100.0 [facility] Comment on above: Order Comment: Speci men Type: BLOOD SPECIMENOrdering Facility: [facility] Address: [address] [place] [address] Performed By: #### 5 8410-2 ####[facility]ORATORYCLIA [id number] [address] Nucleated RBC (Bld) [#/Vol] 10*3/uL Normal <0.01 [facility] Comment on above: Order Comment: Speci men Type: BLOOD SPECIMENOrdering Facility: [facility] Address: [address] [place] [address] Performed By: #### 5 8410-2 ####[facility]ORATORYCLIA [id number] [address] Platelet mean volume (Bld) [Entitic vol] 9.6 fL Normal 9.0-12.7 [facility] Comment on above: Order Comment: Speci men Type: BLOOD SPECIMENOrdering Facility: [facility] Address: [address] [place] [address] Performed By: #### 5 8410-2 ####[facility]ORATORYCLIA [id number] [address] OF [facility] Platelets (Bld) [#/Vol] 340 10*3/uL Normal 150-400 [facility] Comment on above: Order Comment: Speci men Type: BLOOD SPECIMENOrdering Facility: [facility] Address: [address] [place] [address] Performed By: #### 5 8410-2 ####[facility]ATORYCLIA [id number] [address] [place] RBC (Bld) [#/Vol] 3.17 10*6/uL Low 4.20-6.00 [facility] Comment on above: Order Comment: Speci men Type: BLOOD SPECIMENOrdering Facility: [facility] Address: [address] [place] [address] Performed By: #### 5 8410-2 ####[facility]ORATORYCLIA [id number] [address] OF [facility] WBC (Bld) [#/Vol] 8.66 10*3/uL Normal 3.70-11.00 [facility] Comment on above: Order Comment: Speci men Type: BLOOD SPECIMENOrdering Facility: [facility] Address: [address] [place] [address] Performed By: #### 5 8410-2 ####[facility] LABORATORYCLIA [id number] [address] [place] CONSULTon 07-12-2021 CONSULT Normal [facility] CONSULT PROGon 07-12-2021 CONSULT PROG Normal [facility] Magnesium SerPl-mCncon 07-12 Magnesium [Mass/Vol] 2.1 mg/dL Normal 1.7-2.3 [facility] Comment on above: Order Comment: Speci men Type: BLOOD SPECIMENOrdering Facility: [facility] Address: [address] [place] [address] Performed By: #### 1 9123-9, 2777-1, 08558-7 ####[facility]ORATORYCLIA [id number] [address] OF [facility] NURSING PROGon 07-12-2021 NURSING PROG Normal [facility] Phosphate SerPl-mCncon 07-12 Phosphate [Mass/Vol] 3.1 mg/dL Normal 2.7-4.8 [facility] Comment on above: Order Comment: Speci men Type: BLOOD SPECIMENOrdering Facility: [facility] Address: [address] [place] [address] Performed By: #### 1 9123-9, 2777, 27128-7 ####[facility]ORATORYCLIA [id number] [address] THERAPY NTon 07-12-2021 THERAPY NT Normal [facility] aPTT PPPon 07-12-2021 aPTT Coag (PPP) [Time] 49.5 s High 23.0-32.4 [facility] Comment on above: Order Comment: Speci men Type: BLOOD SPECIMENOrdering Facility: [facility] Address: [address] [place] [address] Performed By: #### 1 4979-9 ####[facility]ORATORYCLIA [id number] [address] [place] aPTT Coag (PPP) [Time] 68.0 s High 23.0-32.4 [facility] Comment on above: Order Comment: Speci men Type: BLOOD SPECIMENOrdering Facility: [facility] Address: [address] [place] [address] Performed By: #### 1 4979-9 ####[facility]ATORYCLIA [id number] [address] aPTT Coag (PPP) [Time] 80.0 s High 23.0-32.4 [facility] Comment on above: Order Comment: Speci men Type: BLOOD SPECIMENOrdering Facility: [facility] Address: [address] [place] [address] Performed By: #### 1 4979-9 ####[facility]ORATORYCLIA [id number] [address] [place] CASE MGT INIT ASSESon 2021 CASE MGT INIT ASSES Normal [facility] CBC panel Auto (Bld)on 07-11 Erythrocyte distribution width (RBC) [Ratio] 16.3 % High 11.5-15.0 [facility] Comment on above: Order Comment: Speci men Type: BLOOD SPECIMENOrdering Facility: [facility] Address: [address] [place] [address] Performed By: #### 5 8410-2 ####[facility]ORATORYCLIA [id number] [address] STATES [facility] Hematocrit (Bld) [Volume fraction] 28.3 % Low 39.0-51.0 [facility] Comment on above: Order Comment: Speci men Type: BLOOD SPECIMENOrdering Facility: [facility] Address: [address] [place] [address] Performed By: #### 5 8410-2 ####[facility]ORATORYCLIA [id number] [address] [place] Hemoglobin (Bld) [Mass/Vol] 8.8 g/dL Low 13.0-17.0 [facility] Comment on above: Order Comment: Speci men Type: BLOOD SPECIMENOrdering Facility: [facility] Address: [address] [place] [address] Performed By: #### 5 8410-2 ####[facility]ORATORYCLIA [id number] [address] [place] MCH (RBC) [Entitic mass] 27.4 pg Normal 26.0-34.0 [facility] Comment on above: Order Comment: Speci men Type: BLOOD SPECIMENOrdering Facility: [facility] Address: [address] [place] [address] Performed By: #### 5 8410-2 ####[facility]ORATORYCLIA [id number] [address] MCHC (RBC) [Mass/Vol] 31.1 g/dL Normal 30.5-36.0 [facility] Comment on above: Order Comment: Speci men Type: BLOOD SPECIMENOrdering Facility: [facility] Address: [address] [place] [address] Performed By: #### 5 8410-2 ####[facility]ORATORYCLIA [id number] [address] MCV (RBC) [Entitic vol] 88.2 fL Normal 80.0-100.0 [facility] Comment on above: Order Comment: Speci men Type: BLOOD SPECIMENOrdering Facility: [facility] Address: [address] [place] [address] Performed By: #### 5 8410-2 ####[facility]ORATORYCLIA [id number] [address] Nucleated RBC (Bld) [#/Vol] 10*3/uL Normal <0.01 [facility] Comment on above: Order Comment: Speci men Type: BLOOD SPECIMENOrdering Facility: [facility] Address: [address] [place] [address] Performed By: #### 5 8410-2 ####[facility]ORATORYCLIA [id number] [address] Platelet mean volume (Bld) [Entitic vol] 9.7 fL Normal 9.0-12.7 [facility] Comment on above: Order Comment: Speci men Type: BLOOD SPECIMENOrdering Facility: [facility] Address: [address] [place] [address] Performed By: #### 5 8410-2 ####[facility]ORATORYCLIA [id number] [address] STATES OF [facility] Platelets (Bld) [#/Vol] 315 10*3/uL Normal 150-400 [facility] Comment on above: Order Comment: Speci men Type: BLOOD SPECIMENOrdering Facility: [facility] Address: [address] [place] [address] Performed By: #### 5 8410-2 ####[facility]ORATORYCLIA [id number] [place] [address] [place] RBC (Bld) [#/Vol] 3.21 10*6/uL Low 4.20-6.00 [facility] Comment on above: Order Comment: Speci men Type: BLOOD SPECIMENOrdering Facility: [facility] Address: [address] [place] [address] Performed By: #### 5 8410-2 ####[facility]ORATORYCLIA [id number] [address] OF [facility] WBC (Bld) [#/Vol] 9.18 10*3/uL Normal 3.70-11.00 [facility] Comment on above: Order Comment: Speci men Type: BLOOD SPECIMENOrdering Facility: [facility] Address: [address] [place] [address] Performed By: #### 5 8410-2 ####[facility]ORATORYCLIA [id number] [address] [place] CONSULT PROGon 07-11-2021 CONSULT PROG Normal [facility] CT BRAIN WO IVCONon 07-12-[address] BRAIN WO IVCON Normal [facility] Magnesium SerPl-mCncon 07-11 Magnesium [Mass/Vol] 2.1 mg/dL Normal 1.7-2.3 [facility] Comment on above: Order Comment: Speci men Type: BLOOD SPECIMENOrdering Facility: [facility] Address: [address] [place] [address] Performed By: #### 1 9123-9, 2777-1 ####[facility]ORATORYCLIA [id number] [address] NURSING PROGon 07-11-2021 NURSING PROG Normal [facility] NURSING PROG Normal [facility] Phosphate SerPl-mCncon 07-11 Phosphate [Mass/Vol] 3.4 mg/dL Normal 2.7-4.8 [facility] Comment on above: Order Comment: Speci men Type: BLOOD SPECIMENOrdering Facility: [facility] Address: [address] [place] [address] Performed By: #### 1 9123-9, 2777-1 ####[facility]ORATORYCLIA [id number] [address] THERAPY NTon 07-11-2021 THERAPY NT Normal [facility] Vancomycin random [Mass/Vol] on 07-11-2021 Vancomycin [Mass/Vol] 28.6 ug/mL High 10.0-20.0 [facility] Comment on above: Order Comment: Speci men Type: BLOOD SPECIMENOrdering Facility: [facility] Address: [address] [place] [address] Result Comment: Refe rence ranges and high/low indicator flags are provided as general guidelines only. The treating physician must determine appropriate target levels/dosing based on the specific clinical situation. Performed By: #### 4 091-5 ####[facility]ORATORYCLIA [id number] [address] aPTT PPPon 07-11-2021 aPTT Coag (PPP) [Time] 62.0 s High 23.0-32.4 [facility] Comment on above: Order Comment: Speci men Type: BLOOD SPECIMENOrdering Facility: [facility] Address: [address] [place] [address] Performed By: #### 1 4979-9 ####[facility]ORATORYCLIA [id number] [address] aPTT Coag (PPP) [Time] 52.7 s High 23.0-32.4 [facility] Comment on above: Order Comment: Speci men Type: BLOOD SPECIMENOrdering Facility: [facility] Address: [address] [place] [address] Performed By: #### 1 4979-9 ####[facility]ORATORYCLIA [id number] [address] [place] aPTT Coag (PPP) [Time] 29.9 s Normal 23.0-32.4 [facility] Comment on above: Order Comment: Speci men Type: BLOOD SPECIMENOrdering Facility: [facility] Address: [address] [place] [address] Performed By: #### 1 4979-9 ####[facility]ORATORYCLIA [id number] [place] [address] [place] Basic metabolic 2000 panelon 07-10-2021 Anion gap [Moles/Vol] 14 mmol/L Normal 9-18 [facility] Comment on above: Order Comment: Speci men Type: BLOOD SPECIMENOrdering Facility: [facility] Address: [address] [place] [address] Performed By: #### 1 9123-9, 2777-1, 83608-2 ####[facility]ITALCL[facility] [id number] [place] [address] [place] Calcium [Mass/Vol] 8.5 mg/dL Normal 8.5-10.2 [facility] Comment on above: Order Comment: Speci men Type: BLOOD SPECIMENOrdering Facility: [facility] Address: [address] [place] [address] Performed By: #### 1 9123-9, 2777-1, 81924-1 ####[facility] LABORATORYCLIA [id number] [place] [address] [place] Chloride [Moles/Vol] 100 mmol/L Normal 97-105 [facility] Comment on above: Order Comment: Speci men Type: BLOOD SPECIMENOrdering Facility: [facility] Address: [address] [place] [address] Performed By: #### 1 9123-9, 2777, 92963-1 ####[facility]ORATORYCLIA [id number] [address] STATES OF [facility] CO2 [Moles/Vol] 27 mmol/L Normal 22-30 [facility] Comment on above: Order Comment: Speci men Type: BLOOD SPECIMENOrdering Facility: [facility] Address: [address] [place] [address] Performed By: #### 1 9123-9, 27711-04, 34849-5 ####[facility]ORATORYCLIA [id number] [address] STATES OF [facility] Creatinine [Mass/Vol] 0.66 mg/dL Low 0.73-1.22 [facility] Comment on above: Order Comment: Speci men Type: BLOOD SPECIMENOrdering Facility: [facility] Address: [address] [place] [address] Performed By: #### 1 9123-9, 27711-04, ####[facility]ITALCLIA [id number] [address] ESTIMATED GLOMERULAR FILTRATION RATE 102 mL/min/1.73m??? Normal >=60 [facility] Comment on above: Order Comment: Speci men Type: BLOOD SPECIMENOrdering Facility: [facility] Address: [address] [place] [address] Result Comment: Luzmaria mated Glomerular Filtration Rate [...] GFR. Performed By: #### 1 9123-9, 2777-, 92797-1 ####[facility]ORATORYCLIA [id number] [address] [place] Glucose [Mass/Vol] 93 mg/dL Normal 74-99 [facility] Comment on above: Order Comment: Speci men Type: BLOOD SPECIMENOrdering Facility: [facility] Address: [address] [place], [place] [phone] Result Comment: The [place] [employer] (ADA) provides guidance for cutoff [...] Standards of Medical Care in Diabetes 2016, [place] [employer]. Diabetes Care. 2016.39(Suppl 1). Performed By: #### 1 9123-9, 2777-1, 51525-9 ####[facility] LABORATORYCLIA [id number] [place] [address] [place] Potassium [Moles/Vol] 3.5 mmol/L Low 3.7-5.1 [facility] Comment on above: Order Comment: [facility] Type: BLOOD SPECIMENOrdering Facility: [facility] Address: [address] [place], [place] [id number] Performed By: #### 1 9123-9, 2777-, 49727-6 ####[facility]ORATORYCLIA [id number] [place] [address] [place] Sodium [Moles/Vol] 141 mmol/L Normal 136-144 [facility] Comment on above: Order Comment: Speci men Type: BLOOD SPECIMENOrdering Facility: [facility] Address: [address] [place], [place] [phone] Performed By: #### 1 9123-9, 2777-, 80665-0 ####[facility]ORATORYCLIA [id number] [place] [address] [place] Urea nitrogen [Mass/Vol] 11 mg/dL Normal 9-24 [facility] Comment on above: Order Comment: Speci men Type: BLOOD SPECIMENOrdering Facility: [facility] Address: [address] [place] [address] Performed By: #### 1 9123-9, 2777-1, 59672-5 ####[facility]ORATORYCLIA [id number] [address] CBC panel Auto (Bld)on 07-10 Erythrocyte distribution width (RBC) [Ratio] 16.2 % High 11.5-15.0 [facility] Comment on above: Order Comment: Speci men Type: BLOOD SPECIMENOrdering Facility: [facility] Address: [address] [place] [address] Performed By: #### 5 8410-2 ####[facility]ORATORYCLIA [id number] [address] Hematocrit (Bld) [Volume fraction] 30.6 % Low 39.0-51.0 [facility] Comment on above: Order Comment: Speci men Type: BLOOD SPECIMENOrdering Facility: [facility] Address: [address] [place] [address] Performed By: #### 5 8410-2 ####[facility]ORATORYCLIA [id number] [address] Hemoglobin (Bld) [Mass/Vol] 9.6 g/dL Low 13.0-17.0 [facility] Comment on above: Order Comment: Speci men Type: BLOOD SPECIMENOrdering Facility: [facility] Address: [address] [place] [address] Performed By: #### 5 8410-2 ####[facility]ORATORYCLIA [id number] [address] MCH (RBC) [Entitic mass] 28.3 pg Normal 26.0-34.0 [facility] Comment on above: Order Comment: Speci men Type: BLOOD SPECIMENOrdering Facility: [facility] Address: [address] [place] [address] Performed By: #### 5 8410-2 ####[facility]ORATORYCLIA [id number] [address] STATES [facility] MCHC (RBC) [Mass/Vol] 31.4 g/dL Normal 30.5-36.0 [facility] Comment on above: Order Comment: Speci men Type: BLOOD SPECIMENOrdering Facility: [facility] Address: [address] [place] [address] Performed By: #### 5 8410-2 ####[facility]ORATORYCLIA [id number] [address] STATES [facility] MCV (RBC) [Entitic vol] 90.3 fL Normal 80.0-100.0 [facility] Comment on above: Order Comment: Speci men Type: BLOOD SPECIMENOrdering Facility: [facility] Address: [address] [place] [address] Performed By: #### 5 8410-2 ####[facility]ORATORYCLIA [id number] [address] Nucleated RBC (Bld) [#/Vol] 10*3/uL Normal <0.01 [facility] Comment on above: Order Comment: Speci men Type: BLOOD SPECIMENOrdering Facility: [facility] Address: [address] [place] [address] Performed By: #### 5 8410-2 ####[facility]ORATORYCLIA [id number] [address] [place] Platelet mean volume (Bld) [Entitic vol] 9.7 fL Normal 9.0-12.7 [facility] Comment on above: Order Comment: Speci men Type: BLOOD SPECIMENOrdering Facility: [facility] Address: [address] [place] [address] Performed By: #### 5 8410-2 ####[facility]ORATORYCLIA [id number] [address] [place] Platelets (Bld) [#/Vol] 306 10*3/uL Normal 150-400 [facility] Comment on above: Order Comment: Speci men Type: BLOOD SPECIMENOrdering Facility: [facility] Address: [address] [place] [address] Performed By: #### 5 8410-2 ####[facility]ORATORYCLIA [id number] [address] OF [facility] RBC (Bld) [#/Vol] 3.39 10*6/uL Low 4.20-6.00 [facility] Comment on above: Order Comment: Speci men Type: BLOOD SPECIMENOrdering Facility: [facility] Address: [address] [place] [address] Performed By: #### 5 8410-2 ####[facility]ORATORYCLIA [id number] [address] WBC (Bld) [#/Vol] 9.81 10*3/uL Normal 3.70-11.00 [facility] Comment on above: Order Comment: Speci men Type: BLOOD SPECIMENOrdering Facility: [facility] Address: [address] [place] [address] Performed By: #### 5 8410-2 ####[facility]ORATORYCLIA [id number] [address] [place] CONSULTon 07-10-2021 CONSULT Normal [facility] CONSULT Normal [facility] Magnesium SerPl-mCncon 07-10 Magnesium [Mass/Vol] 1.9 mg/dL Normal 1.7-2.3 [facility] Comment on above: Order Comment: Speci men Type: BLOOD SPECIMENOrdering Facility: [facility] Address: [address] [place] [address] Performed By: #### 1 9123-9, 2777-1, 22525-6 ####[facility]ORATORYCLIA [id number] [address] [place] NURSING PROGon 07-10-2021 NURSING PROG Normal [facility] NURSING PROG Normal [facility] NUTRITIONon 07-10-2021 NUTRITION Normal [facility] Phosphate SerPl-mCncon 07-10 Phosphate [Mass/Vol] 3.6 mg/dL Normal 2.7-4.8 [facility] Comment on above: Order Comment: Speci men Type: BLOOD SPECIMENOrdering Facility: [facility] Address: [address] [place] [address] Performed By: #### 1 9123-9, 2777-1, 24941-1 ####[facility]ORATORYCLIA [id number] [address] [place] US DVT LOWER BILon US DVT LOWER RAINER Normal [facility] aPTT PPPon 07-10-2021 aPTT Coag (PPP) [Time] 28.8 s Normal 23.0-32.4 [facility] Comment on above: Order Comment: Speci men Type: BLOOD SPECIMENOrdering Facility: [facility] Address: [address] [place] [address] Performed By: #### 1 4979-9 ####[facility]ORATORYCLIA [id number] [address] aPTT Coag (PPP) [Time] 28.4 s Normal 23.0-32.4 [facility] Comment on above: Order Comment: Speci men Type: BLOOD SPECIMENOrdering Facility: [facility] Address: [address] [place] [address] Performed By: #### 1 4979-9 ####[facility]ATORYCLIA [id number] [address] [place] ALLIED HEALTHon 07-09-2021 ALLIED HEALTH Normal [facility] Basic metabolic 2000 panelon 07-09-2021 Anion gap [Moles/Vol] 9 mmol/L Normal 9-18 [facility] Comment on above: Order Comment: Speci men Type: BLOOD SPECIMENOrdering Facility: [facility] Address: [address] [place] [address] Performed By: #### 1 9123-9, 2777-1, 04666-8 ####[facility] LABORATORYCLIA [id number] [place] [address] [place] Calcium [Mass/Vol] 8.3 mg/dL Low 8.5-10.2 [facility] Comment on above: Order Comment: Speci men Type: BLOOD SPECIMENOrdering Facility: [facility] Address: [address] [place] [address] Performed By: #### 1 9123-9, 2777-1, 47155-6 ####[facility]ATORYCLIA [id number] [place] [address] [place] Chloride [Moles/Vol] 100 mmol/L Normal 97-105 [facility] Comment on above: Order Comment: Speci men Type: BLOOD SPECIMENOrdering Facility: [facility] Address: [address] [place] [address] Performed By: #### 1 9123-9, 27711-04, 02351-4 ####[facility] LABORATORYCLIA [id number] [address] [place] CO2 [Moles/Vol] 29 mmol/L Normal 22-30 [facility] Comment on above: Order Comment: Speci men Type: BLOOD SPECIMENOrdering Facility: [facility] Address: [address] [place] [address] Performed By: #### 1 9123-9, 27711-04, 44813-2 ####[facility] LABORATORYCLIA [id number] [place] [address] [place] Creatinine [Mass/Vol] 0.61 mg/dL Low 0.73-1.22 [facility] Comment on above: Order Comment: Speci men Type: BLOOD SPECIMENOrdering Facility: [facility] Address: [address] [place] [address] Performed By: #### 1 9123-9, 2777-1, 62547-9 ####[facility] LABORATORYCLIA [id number] [address] OF [facility] ESTIMATED GLOMERULAR FILTRATION RATE 104 mL/min/1.73m??? Normal >=60 [facility] Comment on above: Order Comment: Shira feldman Type: BLOOD SPECIMENOrdering Facility: [facility] Address: [address] [place], [place] [id number] Result Comment: Luzmaria mated Glomerular Filtration Rate [...] GFR. Performed By: #### 1 9123-9, 2777-1, 61659-8 ####[facility]ITALCLIA [id number] [place] [address] [place] Glucose [Mass/Vol] 106 mg/dL High 74-99 [facility] Comment on above: Order Comment: Shira feldman Type: BLOOD SPECIMENOrdering Facility: [facility] Address: [address] [place] [address] Result Comment: The [place] [employer] (ADA) provides guidance for cutoff [...] Standards of Medical Care in Diabetes 2016, [place] [employer]. Diabetes Care. 2016.39(Suppl 1). Performed By: #### 1 9123-9, 2777-1, 42169-3 ####[facility] LABORATORYCLIA [id number] [place] [address] [place] Potassium [Moles/Vol] 3.6 mmol/L Low 3.7-5.1 [facility] Comment on above: Order Comment: Shira feldman Type: BLOOD SPECIMENOrdering Facility: [facility] Address: [address] [place] [address] Performed By: #### 1 9123-9, 2777-1, 85432-4 ####[facility]ORATORYCLIA [id number] [address] Sodium [Moles/Vol] 138 mmol/L Normal 136-144 [facility] Comment on above: Order Comment: Speci men Type: BLOOD SPECIMENOrdering Facility: [facility] Address: [address] [place] [address] Performed By: #### 1 9123-9, 2777, 68112-3 ####[facility]ORATORYCLIA [id number] [address] Urea nitrogen [Mass/Vol] 12 mg/dL Normal 9-24 [facility] Comment on above: Order Comment: Speci men Type: BLOOD SPECIMENOrdering Facility: [facility] Address: [address] [place] [address] Performed By: #### 1 9123-9, 2777, 22232-0 ####[facility]ORATORYCLIA [id number] [address] CBC panel Auto (Bld)on 07-09 Erythrocyte distribution width (RBC) [Ratio] 16.2 % High 11.5-15.0 [facility] Comment on above: Order Comment: Speci men Type: BLOOD SPECIMENOrdering Facility: [facility] Address: [address] [place] [address] Performed By: #### 5 8410-2 ####[facility]ORATORYCLIA [id number] [address] Hematocrit (Bld) [Volume fraction] 29.0 % Low 39.0-51.0 [facility] Comment on above: Order Comment: Speci men Type: BLOOD SPECIMENOrdering Facility: [facility] Address: [address] [place] [address] Performed By: #### 5 8410-2 ####[facility]ORATORYCLIA [id number] [address] OF [facility] Hemoglobin (Bld) [Mass/Vol] 8.8 g/dL Low 13.0-17.0 [facility] Comment on above: Order Comment: Speci men Type: BLOOD SPECIMENOrdering Facility: [facility] Address: [address] [place] [address] Performed By: #### 5 8410-2 ####[facility]ORATORYCLIA [id number] [address] MCH (RBC) [Entitic mass] 27.0 pg Normal 26.0-34.0 [facility] Comment on above: Order Comment: Speci men Type: BLOOD SPECIMENOrdering Facility: [facility] Address: [address] [place] [address] Performed By: #### 5 8410-2 ####[facility]ORATORYCLIA [id number] [address] MCHC (RBC) [Mass/Vol] 30.3 g/dL Low 30.5-36.0 [facility] Comment on above: Order Comment: Speci men Type: BLOOD SPECIMENOrdering Facility: [facility] Address: [address] [place] [address] Performed By: #### 5 8410-2 ####[facility]ORATORYCLIA [id number] [address] MCV (RBC) [Entitic vol] 89.0 fL Normal 80.0-100.0 [facility] Comment on above: Order Comment: Speci men Type: BLOOD SPECIMENOrdering Facility: [facility] Address: [address] [place] [address] Performed By: #### 5 8410-2 ####[facility]ORATORYCLIA [id number] [address] Nucleated RBC (Bld) [#/Vol] 10*3/uL Normal <0.01 [facility] Comment on above: Order Comment: Speci men Type: BLOOD SPECIMENOrdering Facility: [facility] Address: [address] [place] [address] Performed By: #### 5 8410-2 ####[facility]ORATORYCLIA [id number] [address] Platelet mean volume (Bld) [Entitic vol] 9.8 fL Normal 9.0-12.7 [facility] Comment on above: Order Comment: Speci men Type: BLOOD SPECIMENOrdering Facility: [facility] Address: [address] [place] [address] Performed By: #### 5 8410-2 ####[facility]ORATORYCLIA [id number] [address] [place] Platelets (Bld) [#/Vol] 281 10*3/uL Normal 150-400 [facility] Comment on above: Order Comment: Speci men Type: BLOOD SPECIMENOrdering Facility: [facility] Address: [address] [place] [address] Performed By: #### 5 8410-2 ####[facility]ORATORYCLIA [id number] [address] [place] RBC (Bld) [#/Vol] 3.26 10*6/uL Low 4.20-6.00 [facility] Comment on above: Order Comment: Speci men Type: BLOOD SPECIMENOrdering Facility: [facility] Address: [address] [place], [place] [address] Performed By: #### 5 8410-2 ####[facility]ORATORYCLIA [id number] [address] [place] WBC (Bld) [#/Vol] 9.12 10*3/uL Normal 3.70-11.00 [facility] Comment on above: Order Comment: Speci men Type: BLOOD SPECIMENOrdering Facility: [facility] Address: [address] [place] [address] Performed By: #### 5 8410-2 ####[facility]ORATORYCLIA [id number] [address] [place] CONSULT PROGon 07-09-2021 CONSULT PROG Normal [facility] CONSULT PROG Normal [facility] HISTORY PHYSICALon HISTORY PHYSICAL Normal [facility] Magnesium SerPl-mCncon 07-09 Magnesium [Mass/Vol] 1.9 mg/dL Normal 1.7-2.3 [facility] Comment on above: Order Comment: Speci men Type: BLOOD SPECIMENOrdering Facility: [facility] Address: [address] [place] [address] Performed By: #### 1 9123-9, 2777-1, 38026-5 ####[facility]ATORYCLIA [id number] [address] Phosphate SerPl-mCncon 07-09 Phosphate [Mass/Vol] 3.6 mg/dL Normal 2.7-4.8 [facility] Comment on above: Order Comment: Speci men Type: BLOOD SPECIMENOrdering Facility: [facility] Address: [address] [place] [address] Performed By: #### 1 9123-9, 2777-1, 55099-2 ####[facility]ORATORYCLIA [id number] [address] THERAPY NTon 07-09-2021 THERAPY NT Normal [facility] XR ABDOMEN 1V SUPINEon 07-09 XR ABDOMEN 1V SUPINE Normal [facility] ALLIED HEALTHon 07-08-2021 ALLIED HEALTH Normal [facility] [...] Performed By: #### 6 00-7 ####[facility]ORATORYCLIA [id number] [address] Bacteria identified Cx Nom (Bld) CULTURE, BLOOD: No growth 5 days [facility] Comment on above: Performed By: #### 6 00-7 ####[facility]ORATORYCLIA [id number] [address] Bacteria CSF Culton 07-09-19 22 Bacteria identified Cx Nom (CSF) CULTURE, CSF: No growth 14 days GRAM STAIN: No organisms seen No Polymorphonuclear Leukocytes Few Red Blood Cells Gram stain performed on cytospun specimen. Normal [facility] Comment on above: Performed By: #### 6 06-4 ####[facility]ORATORYCLIA [id number] [address] Bacteria Ur Culton 2 Bacteria identified Cx Nom (U) ORGANISM ID: 1 10,000 -<50,000 CFU/ml Proteus species Insignificant colony count. No further workup. ORGANISM ID: 2 <10,000 CFU/ml Normal urogenital chris [facility] Comment on above: Performed By: #### 6 30-4 ####[facility]ORATORYCLIA [id number] [address] Bacteria Wnd Culton 07-09-19 22 Bacteria identified Cx Nom (Wound) ORGANISM ID: 1 Coagulase negative staphylococcus Growth in Enrichment Broth Only No susceptibility testing done. Call lab within 72 hours to initiate work-up if clinically indicated. GRAM STAIN: Account credited. Not performed on this specimen type. Normal [facility] Comment on above: Performed By: #### 6 462-6 ####[facility]ORATORYCLIA [id number] [address] Bacteria identified Cx Nom (Wound) ORGANISM ID: 1 Rare Coagulase negative staphylococcus No susceptibility testing done. Call lab within 72 hours to initiate work-up if clinically indicated. GRAM STAIN: Account credited. Not performed on this specimen type. [facility] Comment on above: Performed By: #### 6 462-6 ####[facility]ORATORYCLIA [id number] [place] [address] Bacteria identified Cx Nom (Wound) CULTURE, INTRAOPERATIVE HARDWARE: No growth 14 days GRAM STAIN: Account credited. Not performed on this specimen type. Normal [facility] Comment on above: Performed By: #### 6 462-6 ####[facility]ORATORYCLIA [id number] [place] [address] [place] Basic metabolic 2000 panelon 07-08-2021 Anion gap [Moles/Vol] 9 mmol/L Normal 9-18 [facility] Comment on above: Order Comment: Speci men Type: BLOOD SPECIMENOrdering Facility: [facility] Address: [address] [place] [address] Performed By: #### 2 4321-2 ####[facility]ORATORYCLIA [id number] [place] [address] [place] Calcium [Mass/Vol] 8.5 mg/dL Normal 8.5-10.2 [facility] Comment on above: Order Comment: Speci men Type: BLOOD SPECIMENOrdering Facility: [facility] Address: [address] [place] [address] Performed By: #### 2 4321-2 ####[facility]ORATORYCLIA [id number] [address] [place] Chloride [Moles/Vol] 98 mmol/L Normal 97-105 [facility] Comment on above: Order Comment: Speci men Type: BLOOD SPECIMENOrdering Facility: [facility] Address: [address] [place] [address] Performed By: #### 2 4321-2 ####[facility]ORATORYCLIA [id number] [place] [address] [place] CO2 [Moles/Vol] 31 mmol/L High 22-30 [facility] Comment on above: Order Comment: Speci men Type: BLOOD SPECIMENOrdering Facility: [facility] Address: [facility] [place] [address] Performed By: #### 2 4321-2 ####[facility]ORATORYCLIA [id number] [address] [place] Creatinine [Mass/Vol] 0.64 mg/dL Low 0.73-1.22 [facility] Comment on above: Order Comment: Shira feldman Type: BLOOD SPECIMENOrdering Facility: [facility] Address: [address] [place] [address] Performed By: #### 2 4321-2 ####[facility] LABORATORYIA [id number] [address] ESTIMATED GLOMERULAR FILTRATION RATE 102 mL/min/1.73m??? Normal >=60 [facility] Comment on above: Order Comment: Shira feldman Type: BLOOD SPECIMENOrdering Facility: [facility] Address: [address] [place] [address] Result Comment: Luzmaria mated Glomerular Filtration Rate [...] Performed By: #### 2 4321-2 ####[facility] [id number] [address] [place] Glucose [Mass/Vol] 114 mg/dL High 74-99 [facility] Comment on above: Order Comment: Shira feldman Type: BLOOD SPECIMENOrdering Facility: [facility] Address: [address] [place] [address] Result Comment: The [place] [employer] (ADA) provides guidance for cutoff [...] Standards of Medical Care in Diabetes 2016, [place] [employer]. Diabetes Care. 2016.39(Suppl 1). Performed By: #### 2 4321-2 ####[facility]ATORYCLIA [id number] [address] [place] Potassium [Moles/Vol] 3.4 mmol/L Low 3.7-5.1 [facility] Comment on above: Order Comment: Speci men Type: BLOOD SPECIMENOrdering Facility: [facility] Address: [address] [place] [address] Performed By: #### 2 4321-2 ####[facility]ORATORYCLIA [id number] [address] STATES [facility] Sodium [Moles/Vol] 138 mmol/L Normal 136-144 [facility] Comment on above: Order Comment: Speci men Type: BLOOD SPECIMENOrdering Facility: [facility] Address: [address] [place] [address] Performed By: #### 2 4321-2 ####[facility]ATORYCLIA [id number] [address] STATES [facility] Urea nitrogen [Mass/Vol] 14 mg/dL Normal 9-24 [facility] Comment on above: Order Comment: Speci men Type: BLOOD SPECIMENOrdering Facility: [facility] Address: [address] [place] [address] Performed By: #### 2 4321-2 ####[facility]ATORYCLIA [id number] [address] [place] CBC W Auto Differential pane l (Bld)on 07-08-2021 Basophils (Bld) [#/Vol] 0.05 10*3/uL Normal <0.11 [facility] Comment on above: Order Comment: Speci men Type: BLOOD SPECIMENOrdering Facility: [facility] Address: [address] [place] [address] Performed By: #### 5 7021-8 ####[facility]ORATORYCLIA [id number] [address] [place] Basophils/100 WBC (Bld) 0.4 % Normal [facility] Comment on above: Order Comment: Speci men Type: BLOOD SPECIMENOrdering Facility: [facility] Address: [address] [place] [address] Performed By: #### 5 7021-8 ####[facility]ORATORYCLIA [id number] [address] [place] Differential cell count method Nom (Bld) Auto Normal [facility] Comment on above: Order Comment: Speci men Type: BLOOD SPECIMENOrdering Facility: [facility] Address: [address] [place] [address] Performed By: #### 5 7021-8 ####[facility]ORATORYCLIA [id number] [address] [place] Eosinophils (Bld) [#/Vol] 0.68 10*3/uL High <0.46 [facility] Comment on above: Order Comment: Speci men Type: BLOOD SPECIMENOrdering Facility: [facility] Address: [address] [place] [address] Performed By: #### 5 7021-8 ####[facility]ORATORYCLIA [id number] [address] [place] Eosinophils/100 WBC (Bld) 5.4 % Normal [facility] Comment on above: Order Comment: Speci men Type: BLOOD SPECIMENOrdering Facility: [facility] Address: [address] [place] [address] Performed By: #### 5 7021-8 ####[facility]ORATORYCLIA [id number] [address] [place] Erythrocyte distribution width (RBC) [Ratio] 16.3 % High 11.5-15.0 [facility] Comment on above: Order Comment: Speci men Type: BLOOD SPECIMENOrdering Facility: [facility] Address: [address] [place] [address] Performed By: #### 5 7021-8 ####[facility]ATORYCLIA [id number] [address] Hematocrit (Bld) [Volume fraction] 35.7 % Low 39.0-51.0 [facility] Comment on above: Order Comment: Speci men Type: BLOOD SPECIMENOrdering Facility: [facility] Address: [address] [place] [address] Performed By: #### 5 7021-8 ####[facility]ATORYCLIA [id number] [address] Hemoglobin (Bld) [Mass/Vol] 10.8 g/dL Low 13.0-17.0 [facility] Comment on above: Order Comment: Speci men Type: BLOOD SPECIMENOrdering Facility: [facility] Address: [address] [place] [address] Performed By: #### 5 7021-8 ####[facility]ATORYCLIA [id number] [address] IMMATURE GRAN % 0.4 % Normal [facility] Comment on above: Order Comment: Speci men Type: BLOOD SPECIMENOrdering Facility: [facility] Address: [address] [place] [address] Performed By: #### 5 7021-8 ####[facility]ATORYCLIA [id number] [address] IMMATURE GRAN ABS 0.05 k/uL Normal <0.10 [facility] Comment on above: Order Comment: Speci men Type: BLOOD SPECIMENOrdering Facility: [facility] Address: [address] [place] [address] Performed By: #### 5 7021-8 ####[facility]ATORYCLIA [id number] [address] Lymphocytes (Bld) [#/Vol] 1.85 10*3/uL Normal 1.00-4.00 [facility] Comment on above: Order Comment: Speci men Type: BLOOD SPECIMENOrdering Facility: [facility] Address: [address] [place] [address] Performed By: #### 5 7021-8 ####[facility]ATORYCLIA [id number] [address] Lymphocytes/100 WBC (Bld) 14.7 % Normal [facility] Comment on above: Order Comment: Speci men Type: BLOOD SPECIMENOrdering Facility: [facility] Address: [address] [place] [address] Performed By: #### 5 7021-8 ####[facility]ORATORYCLIA [id number] [address] OF [facility] MCH (RBC) [Entitic mass] 27.1 pg Normal 26.0-34.0 [facility] Comment on above: Order Comment: Speci men Type: BLOOD SPECIMENOrdering Facility: [facility] Address: [address] [place] [address] Performed By: #### 5 7021-8 ####[facility]ORATORYCLIA [id number] [address] STATES [facility] MCHC (RBC) [Mass/Vol] 30.3 g/dL Low 30.5-36.0 [facility] Comment on above: Order Comment: Speci men Type: BLOOD SPECIMENOrdering Facility: [facility] Address: [address] [place] [address] Performed By: #### 5 7021-8 ####[facility]ORATORYCLIA [id number] [address] MCV (RBC) [Entitic vol] 89.7 fL Normal 80.0-100.0 [facility] Comment on above: Order Comment: Speci men Type: BLOOD SPECIMENOrdering Facility: [facility] Address: [address] [place] [address] Performed By: #### 5 7021-8 ####[facility]ATORYCLIA [id number] [address] Monocytes (Bld) [#/Vol] 0.87 10*3/uL High <0.87 [facility] Comment on above: Order Comment: Speci men Type: BLOOD SPECIMENOrdering Facility: [facility] Address: [address] [place] [address] Performed By: #### 5 7021-8 ####[facility] LABORATORYCLIA [id number] [address] [place] Monocytes/100 WBC (Bld) 6.9 % Normal [facility] Comment on above: Order Comment: Speci men Type: BLOOD SPECIMENOrdering Facility: [facility] Address: [address] [place] [address] Performed By: #### 5 7021-8 ####[facility]ORATORYCLIA [id number] [address] [place] Neutrophils (Bld) [#/Vol] 9.05 10*3/uL High 1.45-7.50 [facility] Comment on above: Order Comment: Speci men Type: BLOOD SPECIMENOrdering Facility: [facility] Address: [address] [place] [address] Performed By: #### 5 7021-8 ####[facility]ORATORYCLIA [id number] [address] [place] Neutrophils/100 WBC (Bld) 72.2 % Normal [facility] Comment on above: Order Comment: Speci men Type: BLOOD SPECIMENOrdering Facility: [facility] Address: [address] [place] [address] Performed By: #### 5 7021-8 ####[facility]ORATORYCLIA [id number] [address] [place] Nucleated RBC (Bld) [#/Vol] 10*3/uL Normal <0.01 [facility] Comment on above: Order Comment: Speci men Type: BLOOD SPECIMENOrdering Facility: [facility] Address: [address] [place] [address] Performed By: #### 5 7021-8 ####[facility]ORATORYCLIA [id number] [address] [place] Nucleated RBC/100 WBC (Bld) [Ratio] 0.0 /100 WBC Normal [facility] Comment on above: Order Comment: Speci men Type: BLOOD SPECIMENOrdering Facility: [facility] Address: [address] [place] [address] Performed By: #### 5 7021-8 ####[facility]ORATORYCLIA [id number] [place] [address] [place] Platelet mean volume (Bld) [Entitic vol] 9.9 fL Normal 9.0-12.7 [facility] Comment on above: Order Comment: Speci men Type: BLOOD SPECIMENOrdering Facility: [facility] Address: [address] [place] [address] Performed By: #### 5 7021-8 ####[facility]ORATORYCLIA [id number] [address] [place] Platelets (Bld) [#/Vol] 335 10*3/uL Normal 150-400 [facility] Comment on above: Order Comment: Speci men Type: BLOOD SPECIMENOrdering Facility: [facility] Address: [address] [place] [address] Performed By: #### 5 7021-8 ####[facility]ORATORYCLIA [id number] [place] [address] [place] RBC (Bld) [#/Vol] 3.98 10*6/uL Low 4.20-6.00 [facility] Comment on above: Order Comment: Speci men Type: BLOOD SPECIMENOrdering Facility: [facility] Address: [address] [place] [address] Performed By: #### 5 7021-8 ####[facility]ORATORYCLIA [id number] [address] [place] WBC (Bld) [#/Vol] 12.55 10*3/uL High 3.70-11.00 [facility] Comment on above: Order Comment: Speci men Type: BLOOD SPECIMENOrdering Facility: [facility] Address: [address] [place] [address] Performed By: #### 5 7021-8 ####[facility] LABORATORYCLIA [id number] [address] OF [facility] CK CREATINE KINASEon 022 CK [Catalytic activity/Vol] 72 U/L Normal 51-298 [facility] Comment on above: Order Comment: Speci men Type: BLOOD SPECIMENOrdering Facility: [facility] Address: [address] [place] [address] Performed By: #### C K, 69280-8 ####[facility] LABORATORYCLIA [id number] [address] [place] CONSULT PROGon 07-08-2021 CONSULT PROG Normal [facility] CONSULT PROG Normal [facility] CSF MANUAL DIFFon 07-08-2021 DIF TTL, CSF 3 cells counted Normal [facility] Comment on above: Order Comment: Speci men Type: CEREBROSPINAL FLUIDOrdering Facility: [facility] Address: [address] [place] [address] Performed By: #### 3 4563-7, [id number] ####[facility] LABORATORYCLIA [id number] [place] [address] [place] LYMPH%, CSF 33 % Low 50-90 [facility] Comment on above: Order Comment: Speci men Type: CEREBROSPINAL FLUIDOrdering Facility: [facility] Address: [address] [place] [address] Performed By: #### 3 4563-7, [id number] ####[facility] LABORATORYCLIA [id number] [place] [address] [place] MONO%, CSF 67 % High 10-50 [facility] Comment on above: Order Comment: Speci men Type: CEREBROSPINAL FLUIDOrdering Facility: [facility] Address: [address] [place] [address] Performed By: #### 3 4563-7, [id number] ####[facility] LABORATORYCLIA [id number] [place] [address] [place] [address] ABD/PEL W [...] Comment: Speci men Type: CEREBROSPINAL FLUIDOrdering Facility: [facility] Address: [address] [place] [address] Performed By: #### 3 4563-7, [id number] ####[facility] LABORATORYCLIA [id number] [place] [address] [place] Clarity (Unsp spec) Clear Normal Clear [facility] Comment on above: Order Comment: Speci men Type: CEREBROSPINAL FLUIDOrdering Facility: [facility] Address: [address] [place] [address] Performed By: #### 3 4563-7, [id number] ####[facility] LABORATORYCLIA [id number] [address] [place] Color (CSF) Colorless Normal Colorless [facility] Comment on above: Order Comment: Speci men Type: CEREBROSPINAL FLUIDOrdering Facility: [facility] Address: [address] [place] [address] Performed By: #### 3 4563-7, [id number] ####[facility]ORATORYCLIA [id number] [address] [place] Color (Spun CSF) Colorless Normal Colorless [facility] Comment on above: Order Comment: Speci men Type: CEREBROSPINAL FLUIDOrdering Facility: [facility] Address: [address] [place] [address] Performed By: #### 3 4563-7, [id number] ####[facility]ORATORYCLIA [id number] [address] CSF TUBE [employer] Normal [facility] Comment on above: Order Comment: Speci men Type: CEREBROSPINAL FLUIDOrdering Facility: [facility] Address: [address] [place] [address] Performed By: #### 3 4563-7, [id number] ####[facility] LABORATORYCLIA [id number] [address] RBC Manual cnt (CSF) [#/Vol] 94 cells/uL High 0-5 [facility] Comment on above: Order Comment: Speci men Type: CEREBROSPINAL FLUIDOrdering Facility: [facility] Address: [address] [place] [address] Performed By: #### 3 4563-7, [id number] ####[facility]ORATORYCLIA [id number] [address] WBC Manual cnt (CSF) [#/Vol] 1 cells/uL Normal 0-5 [facility] Comment on above: Order Comment: Speci men Type: CEREBROSPINAL FLUIDOrdering Facility: [facility] Address: [address] [place] [address] Performed By: #### 3 4563-7, [id number] ####[facility] LABORATORYCLIA [id number] [address] OF [facility] Comprehensive metabolic 2000 panelon 07-08-2021 Albumin [Mass/Vol] 3.6 g/dL Low 3.9-4.9 [facility] Comment on above: Order Comment: Speci men Type: BLOOD SPECIMENOrdering Facility: [facility] Address: [address] [place] [address] Performed By: #### C K, 40817-0 ####[facility]ORATORYCLIA [id number] [address] ALP [Catalytic activity/Vol] 125 U/L High 38-113 [facility] Comment on above: Order Comment: Speci men Type: BLOOD SPECIMENOrdering Facility: [facility] Address: [address] [address] Performed By: #### Eileen Valdivia, 34178-4 ####[facility] LABORATORYCLIA [id number] [place] [address] [place] ALT With P-5'-P [Catalytic activity/Vol] 24 U/L Normal 10-54 [facility] Comment on above: Order Comment: Speci men Type: BLOOD SPECIMENOrdering Facility: [facility] Address: [address] [address] Performed By: #### Eileen Valdivia, 72701-4 ####[facility]ORATORYCLIA [id number] [address] STATES OF [facility] Anion gap [Moles/Vol] 16 mmol/L Normal 9-18 [facility] Comment on above: Order Comment: Speci men Type: BLOOD SPECIMENOrdering Facility: [facility] Address: [address] [place] [address] Performed By: #### Eileen Valdivia, 06475-3 ####[facility]ORATORYCLIA [id number] [address] [place] AST With P-5'-P [Catalytic activity/Vol] 21 U/L Normal 14-40 [facility] Comment on above: Order Comment: Speci men Type: BLOOD SPECIMENOrdering Facility: [facility] Address: [address] [place] [address] Performed By: #### Eileen Valdivia, 50328-5 ####[facility] LABORATORYCLIA [id number] [address] [place] Bilirubin [Mass/Vol] 0.3 mg/dL Normal 0.2-1.3 [facility] Comment on above: Order Comment: Speci men Type: BLOOD SPECIMENOrdering Facility: [facility] Address: [address] [place] [address] Performed By: #### Eileen Valdivia, 97716-8 ####[facility] LABORATORYCLIA [id number] [address] [place] Calcium [Mass/Vol] 8.9 mg/dL Normal 8.5-10.2 [facility] Comment on above: Order Comment: Speci men Type: BLOOD SPECIMENOrdering Facility: [facility] Address: [address] [address] Performed By: #### Eileen Valdivia, 72729-1 ####[facility] LABORATORYCLIA [id number] [place] [address] [place] Chloride [Moles/Vol] 96 mmol/L Low 97-105 [facility] Comment on above: Order Comment: Speci men Type: BLOOD SPECIMENOrdering Facility: [facility] Address: [address] [place] [address] Performed By: #### Eileen Valdivia, 98683-9 ####[facility]ORATORYCLIA [id number] [address] [place] CO2 [Moles/Vol] 27 mmol/L Normal 22-30 [facility] Comment on above: Order Comment: Speci men Type: BLOOD SPECIMENOrdering Facility: [facility] Address: [address] [place] [address] Performed By: #### Eileen Valdivia, 08208-3 ####[facility]ORATORYCLIA [id number] [address] [place] Creatinine [Mass/Vol] 0.68 mg/dL Low 0.73-1.22 [facility] Comment on above: Order Comment: Speci men Type: BLOOD SPECIMENOrdering Facility: [facility] Address: [address] [address] Performed By: #### Eileen Valdivia, 34906-1 ####[facility] LABORATORYCLIA [id number] [address] ESTIMATED GLOMERULAR FILTRATION RATE 101 mL/min/1.73m??? Normal >=60 [facility] Comment on above: Order Comment: Speci men Type: BLOOD SPECIMENOrdering Facility: [facility] Address: [address] [place] [address] Result Comment: Luzmaria mated Glomerular Filtration Rate [...] actual GFR. Performed By: #### Eileen Valdivia, 77368-7 ####[facility] LABORATORYCLIA [id number] [place] [address] [place] Glucose [Mass/Vol] 130 mg/dL High 74-99 [facility] Comment on above: Order Comment: Shira feldman Type: BLOOD SPECIMENOrdering Facility: [facility] Address: [address] [place], [place] [address] Result Comment: The [place] Diabetes Association (ADA) provides guidance for cutoff [...] Standards of Medical Care in Diabetes 2016, [place] [employer]. Diabetes Care. 2016.39(Suppl 1). Performed By: #### Eileen Valdivia, 80912-3 ####[facility] LABORATORYCLIA [id number] [place] [id number] [place] Potassium [Moles/Vol] 3.9 mmol/L Normal 3.7-5.1 [facility] Comment on above: Order Comment: Shira feldman Type: BLOOD SPECIMENOrdering Facility: [facility] Address: [address] [place] [address] Performed By: #### Elieen Valdivia, 62511-8 ####[facility] LABORATORYCLIA [id number] [place] [address] [place] Protein [Mass/Vol] 7.0 g/dL Normal 6.3-8.0 [facility] Comment on above: Order Comment: Speci men Type: BLOOD SPECIMENOrdering Facility: [facility] Address: [address] [place] [address] Performed By: #### Eileen Valdivia, 90622-1 ####[facility]ORATORYCLIA [id number] [address] [place] Sodium [Moles/Vol] 139 mmol/L Normal 136-144 [facility] Comment on above: Order Comment: Speci men Type: BLOOD SPECIMENOrdering Facility: [facility] Address: [address] [place] [address] Performed By: #### Eileen Valdivia, 42464-1 ####[facility]ORATORYCLIA [id number] [address] [place] Urea nitrogen [Mass/Vol] 16 mg/dL Normal 9-24 [facility] Comment on above: Order Comment: Speci men Type: BLOOD SPECIMENOrdering Facility: [facility] Address: [address] [place] [address] Performed By: #### Eileen Valdivia, 26881-0 ####[facility]ORATORYCLIA [id number] [address] ED NOTEon 07-08-2021 ED NOTE HNO ID: [id number] Author: Lenora James RN Service: Emergency Medicine Author Type: Registered Nurse Type: ED Notes Filed: 07/08/2021 5:03 PM Note Text: Pt to OR with surgical team Normal [facility] ED NOTE HNO ID: [id number] Author: Lenora James RN Service: Emergency Medicine Author Type: Registered Nurse Type: ED Notes Filed: 07/08/2021 4:50 PM Note Text: OR team to get pt Normal [facility] ED NOTE HNO ID: [id number] Author: Lenora James RN Service: Emergency Medicine Author Type: Registered Nurse Type: ED Notes Filed: 07/08/2021 4:50 PM Note Text: Normal [facility] ED NOTE HNO ID: [id number] Author: Lenora James RN Service: Emergency Medicine Author Type: Registered Nurse Type: ED Notes Filed: 07/08/2021 4:50 PM Note Text: Spoke with presurg; pt to go to OR now [facility] ED NOTE HNO ID: [id number] Author: Lenora James RN Service: Emergency Medicine Author Type: Registered Nurse Type: ED Notes Filed: 07/08/2021 4:12 PM Note Text: Neurosurgery at beside [facility] ED NOTE HNO ID: [id number] Author: Lenora James RN Service: Emergency Medicine Author Type: Registered Nurse Type: ED Notes Filed: 07/08/2021 2:35 PM Note Text: respiratory aware of pt breathing treatments [facility] ED NOTE HNO ID: [id number] Author: Lisa Woo RN Service: ? Author Type: Registered Nurse Type: ED Notes Filed: 07/08/2021 2:20 PM Note Text: Xray notified pt is ready. [facility] ED NOTE HNO ID: [id number] Author: Lenora James RN Service: Emergency Medicine Author Type: Registered Nurse Type: ED Notes Filed: 07/08/2021 12:14 PM Note Text: CT notified regarding imaging orders placed [facility] ED NOTE Normal [facility] ED PROV NOTEon 07-08-2021 ED PROV NOTE Normal [facility] Glucose CSF-mCncon 2 Glucose (CSF) [Mass/Vol] 88 mg/dL High 40-70 [facility] Comment on above: Order Comment: Speci men Type: CEREBROSPINAL FLUIDOrdering Facility: [facility] Address: [address] [place] [address] Result Comment: Lumb ar CSF glucose values of healthy patients are approximately 60% of the plasma values and must always be compared with a concurrently measured plasma value for adequate clinical interpretation.References: 1. Glucose HK (GLUC3) [package insert V 12.0 Peruvian]. [employer], [place], [place]. September 2015. 2. Teresa HGarfield, Loki, H. (2015). Chapter 7: Glucose and Lactate. F. Irina rose al.(eds.), Cerebrospinal Fluid in Clinical Neurology. [place]: [employer]. Performed By: #### 2 880-3, 2342-4 ####[facility] LABORATORYCLIA [id number] [address] HIGH SENSITIVITY TROPONIN To n 07-08-2021 HIGH SENSITIVITY TAMIKO 27 ng/L High <12 [facility] Comment on above: Order Comment: Speci men Type: BLOOD SPECIMENOrdering Facility: [facility] Address: [address] [place] [address] Result Comment: When assessing risk for acute [...] Performed By: #### H STNT ####[facility] LABORATORYCLIA [id number] [address] HIGH SENSITIVITY TAMIKO 36 ng/L High <12 [facility] Comment on above: Order Comment: Speci francia Type: BLOOD SPECIMENOrdering Facility: [facility] Address: [address] [place] [address] Result Comment: When assessing risk for acute [...] Performed By: #### H STNT ####[facility] LABORATORYCLIA [id number] [address] OF [facility] HISTORY PHYSICALon HISTORY PHYSICAL Normal [facility] NURSING PROGon 07-08-2021 NURSING PROG Normal [facility] OPERATIVE NOon 07-08-2021 OPERATIVE NO Normal [facility] Prot CSF-mCncon 07-08-2021 Protein (CSF) [Mass/Vol] 33 mg/dL Normal 15-45 [facility] Comment on above: Order Comment: Speci men Type: CEREBROSPINAL FLUIDOrdering Facility: [facility] Address: [address] [place] [address] Performed By: #### 2 880-3, 2342-4 ####[facility] LABORATORYCLIA [id number] [address] [place] SARS-CoV-2 RNA Resp Ql MEGAN+p robeon 07-08-2021 SARS-CoV-2 (COVID-19) RNA MEGAN+probe Ql (Resp) COVID 19 RESULT: SARS-CoV-2 (Agent of COVID-19) Not Detected by RT-PCR or equivalent method. This test has been authorized by FDA under an Emergency Use Authorization (EUA). Normal [facility] Comment on above: Performed By: #### 9 4500-6 ####[facility] LABORATORYCLIA [id number] [address] STAPH AUREUS PCRon 2 S. aureus and MRSA panel MEGAN+probe (Nose) Normal Negative [facility] Comment on above: Order Comment: Speci men Type: SWAB OF INTERNAL NOSEOrdering Facility: [facility] Address: [address] [place] [address] Result Comment: Nega tive for Staphylococcus aureus by PCR.Negative for MRSA by PCR Performed By: #### S APCR ####[facility] LABORATORYCLIA [id number] [address] [place] Urinalysis complete panel (U )on 07-08-2021 Bacteria LM.HPF (Urine sed) [#/Area] Few Abnormal None Seen [facility] Comment on above: Order Comment: Speci men Type: URINE SPECIMENOrdering Facility: [facility] Address: [address] [place] [address] Performed By: #### 2 4356-8 ####[facility] LABORATORYCLIA [id number] [place] [address] [place] Bilirubin Ql (U) Negative Normal Negative [facility] Comment on above: Order Comment: Speci men Type: URINE SPECIMENOrdering Facility: [facility] Address: [address] [place] [address] Performed By: #### 2 4356-8 ####[facility] LABORATORYCLIA [id number] [address] Clarity (Unsp spec) Turbid Abnormal Clear [facility] Comment on above: Order Comment: Speci men Type: URINE SPECIMENOrdering Facility: [facility] Address: [address] [place] [address] Performed By: #### 2 4356-8 ####[facility] LABORATORYCLIA [id number] [address] Color (U) Light Yellow Normal yellow [facility] Comment on above: Order Comment: Speci men Type: URINE SPECIMENOrdering Facility: [facility] Address: [address] [place] [address] Performed By: #### 2 4356-8 ####[facility] LABORATORYCLIA [id number] [address] Glucose Test strip (U) [Mass/Vol] Negative Normal Negative [facility] Comment on above: Order Comment: Speci men Type: URINE SPECIMENOrdering Facility: [facility] Address: [address] [place] [address] Performed By: #### 2 4356-8 ####[facility] LABORATORYCLIA [id number] [address] Hemoglobin Ql (U) Negative Normal Negative [facility] Comment on above: Order Comment: Speci men Type: URINE SPECIMENOrdering Facility: [facility] Address: [address] [place] [address] Performed By: #### 2 4356-8 ####[facility] LABORATORYCLIA [id number] [address] Hyaline casts (Urine sed) [#/Area] 1-3 /LPF Abnormal 0 /LPF [facility] Comment on above: Order Comment: Speci men Type: URINE SPECIMENOrdering Facility: [facility] Address: [address] [place] [address] Performed By: #### 2 4356-8 ####[facility]ATORYCLIA [id number] [address] Ketones Ql (U) Negative Normal Negative [facility] Comment on above: Order Comment: Speci men Type: URINE SPECIMENOrdering Facility: [facility] Address: [address] [place] [address] Performed By: #### 2 4356-8 ####[facility] LABORATORYCLIA [id number] [address] Leukocyte esterase Test strip Ql (U) Negative Normal Negative [facility] Comment on above: Order Comment: Speci men Type: URINE SPECIMENOrdering Facility: [facility] Address: [address] [place] [address] Performed By: #### 2 4356-8 ####[facility] LABORATORYCLIA [id number] [address] [place] Nitrite Ql (U) Negative Normal Negative [facility] Comment on above: Order Comment: Speci men Type: URINE SPECIMENOrdering Facility: [facility] Address: [address] [place] [address] Performed By: #### 2 4356-8 ####[facility]ATORYCLIA [id number] [address] [place] pH (U) 5.0 [pH] Normal 5.0-8.0 [facility] Comment on above: Order Comment: Speci men Type: URINE SPECIMENOrdering Facility: [facility] Address: [address] [place] [address] Performed By: #### 2 4356-8 ####[facility]ATORYCLIA [id number] [address] [place] Protein (U) [Mass/Vol] Negative Normal Negative [facility] Comment on above: Order Comment: Speci men Type: URINE SPECIMENOrdering Facility: [facility] Address: [address] [place] [address] Performed By: #### 2 4356-8 ####[facility] LABORATORYCLIA [id number] [address] RBC LM.HPF (Urine sed) [#/Area] 11-25 /HPF Abnormal 0-3 /HPF [facility] Comment on above: Order Comment: Speci men Type: URINE SPECIMENOrdering Facility: [facility] Address: [address] [place] [address] Performed By: #### 2 4356-8 ####[facility] LABORATORYCLIA [id number] [address] Specific gravity (U) [Rel density] 1.018 Normal 1.005-1.030 [facility] Comment on above: Order Comment: Speci men Type: URINE SPECIMENOrdering Facility: [facility] Address: [address] [place] [address] Performed By: #### 2 4356-8 ####[facility]ORATORYCLIA [id number] [address] Urobilinogen Ql (U) Normal Normal Negative [facility] Comment on above: Order Comment: Speci men Type: URINE SPECIMENOrdering Facility: [facility] Address: [address] [place] [address] Performed By: #### 2 4356-8 ####[facility] LABORATORYCLIA [id number] [address] WBC LM.HPF (Urine sed) [#/Area] /[HPF] Abnormal 0-5 /HPF [facility] Comment on above: Order Comment: Speci men Type: URINE SPECIMENOrdering Facility: [facility] Address: [address] [place] [address] Performed By: #### 2 4356-8 ####[facility] LABORATORYCLIA [id number] [address] Vancomycin random [Mass/Vol] on 07-08-2021 Vancomycin [Mass/Vol] 31.0 ug/mL High 10.0-20.0 [facility] Comment on above: Order Comment: Speci men Type: BLOOD SPECIMENOrdering Facility: [facility] Address: [address] [place] [address] Result Comment: Refe rence ranges and high/low indicator flags are provided as general guidelines only. The treating physician must determine appropriate target levels/dosing based on the specific clinical situation. Performed By: #### 4 091-5 ####[facility] LABORATORYCLIA [id number] [address] OF [facility] XR ABD 2V SUPINE W UPR/DECUB [...] Center HISTORY PHYSICALon HISTORY PHYSICAL HNO ID: [id number] Author: Amy Beltran MD Service: ? Author Type: Physician Type: HANDP Filed: 06/30/2021 6:42 PM Note Text: Connected Care Unit History and Physical Facility: [facility] Level of Care: Skilled Admission Date: [...] regarding the above plan. Total time spent [id number] and/or counseling and coordinating care on the skilled care unit for patient was approximately 45 minutes SUBJECTIVE (HISTORY) Chief Complaint: Confusion, infection, blood clot. Andrew Sifuentes is being seen today for shelter facility (SNF) admission AND management of weakness, tube feed, infected retroperitoneal infection and seizure. HPI: This is a 71 year old male who presents from [facility] with primary admitting diagnosis of [...] brain concerning for hydrocephalus. Tip of [employer] shunt was found to be in the [...] Status: Fu (more content not included)... Normal [facility] Basic metabolic 2000 panelon 06-28-2021 Anion gap [Moles/Vol] 7 mmol/L Low 9-18 [facility] Comment on above: Order Comment: Speci men Type: BLOOD SPECIMENOrdering Facility: [facility] Address: [address] [place] [address] [place] [address] Performed By: #### 2 43205-08, ####[facility] LABORATORYCLIA [id number] [place] [address] [place] Calcium [Mass/Vol] 8.8 mg/dL Normal 8.5-10.2 [facility] Comment on above: Order Comment: Speci men Type: BLOOD SPECIMENOrdering Facility: [facility] Address: [address] [place] [address] Performed By: #### 2 2, ####[facility] LABORATORYCLIA [id number] [place] [address] [place] Chloride [Moles/Vol] 103 mmol/L Normal 97-105 [facility] Comment on above: Order Comment: Speci men Type: BLOOD SPECIMENOrdering Facility: [facility] Address: [address] [place] [address] Performed By: #### 2 4320-06, ####[facility] LABORATORYCLIA [id number] [place] [address] [place] CO2 [Moles/Vol] 28 mmol/L Normal 22-30 [facility] Comment on above: Order Comment: Speci men Type: BLOOD SPECIMENOrdering Facility: [facility] Address: [address] [place] [address] Performed By: #### 2 4320-06, ####[facility] LABORATORYCLIA [id number] [place] [address] [place] Creatinine [Mass/Vol] 0.57 mg/dL Low 0.73-1.22 [facility] Comment on above: Order Comment: Speci men Type: BLOOD SPECIMENOrdering Facility: [facility] Address: [address] [place] [address] Performed By: #### 2 4320-06, ####[facility] LABORATORYCLIA [id number] [place] [address] [place] GFR/1.73 sq M.predicted MDRD (S/P/Bld) [Vol rate/Area] mL/min/{1.73_m2} Normal [facility] Comment on above: Order Comment: Shira feldman Type: BLOOD SPECIMENOrdering Facility: [facility] Address: [address] [place] [address] Result Comment: >60e GFR (Estimated GFR) Units [...] actual GFR. Performed By: #### 2 4321-2, 49163-8 ####[facility] LABORATORYCLIA [id number] [place] [address] [place] Glucose [Mass/Vol] 120 mg/dL High 74-99 [facility] Comment on above: Order Comment: Shira feldman Type: BLOOD SPECIMENOrdering Facility: [facility] Address: [address] [place] [address] Result Comment: The [place] [employer] (ADA) provides guidance for cutoff [...] Standards of Medical Care in Diabetes 2016, [place] [employer]. Diabetes Care. 2016.39(Suppl 1). Performed By: #### 2 4321-2, 48709-6 ####[facility] LABORATORYCLIA [id number] [place] [address] [place] Potassium [Moles/Vol] 3.8 mmol/L Normal 3.7-5.1 [facility] Comment on above: Order Comment: Speci men Type: BLOOD SPECIMENOrdering Facility: [facility] Address: [address] [place] [address] Performed By: #### 2 4321-2, ####[facility]ORATORYCLIA [id number] [address] STATES [facility] Sodium [Moles/Vol] 138 mmol/L Normal 136-144 [facility] Comment on above: Order Comment: Speci men Type: BLOOD SPECIMENOrdering Facility: [facility] Address: [address] [place] [address] Performed By: #### 2 4321-2, ####[facility] LABORATORYCLIA [id number] [address] STATES [facility] Urea nitrogen [Mass/Vol] 24 mg/dL Normal 9-24 [facility] Comment on above: Order Comment: Speci men Type: BLOOD SPECIMENOrdering Facility: [facility] Address: [address] [place] [address] Performed By: #### 2 4321-2, ####[facility]ORATORYCLIA [id number] [address] CASE MANAGEMon 06-28-2021 CASE MANAGEM Normal [facility] CBC panel Auto (Bld)on 06-28 Erythrocyte distribution width (RBC) [Ratio] 15.6 % High 11.5-15.0 [facility] Comment on above: Order Comment: Speci men Type: BLOOD SPECIMENOrdering Facility: [facility] Address: [address] [place] [address] Performed By: #### 5 8410-2 ####[facility]ORATORYCLIA [id number] [address] Hematocrit (Bld) [Volume fraction] 30.5 % Low 39.0-51.0 [facility] Comment on above: Order Comment: Speci men Type: BLOOD SPECIMENOrdering Facility: [facility] Address: [address] [place] [address] Performed By: #### 5 8410-2 ####[facility]ORATORYCLIA [id number] [address] Hemoglobin (Bld) [Mass/Vol] 9.4 g/dL Low 13.0-17.0 [facility] Comment on above: Order Comment: Speci men Type: BLOOD SPECIMENOrdering Facility: [facility] Address: [address] [place] [address] Performed By: #### 5 8410-2 ####[facility]ORATORYCLIA [id number] [address] MCH (RBC) [Entitic mass] 27.8 pg Normal 26.0-34.0 [facility] Comment on above: Order Comment: Speci men Type: BLOOD SPECIMENOrdering Facility: [facility] Address: [address] [place] [address] Performed By: #### 5 8410-2 ####[facility]ATORYCLIA [id number] [address] MCHC (RBC) [Mass/Vol] 30.8 g/dL Normal 30.5-36.0 [facility] Comment on above: Order Comment: Speci men Type: BLOOD SPECIMENOrdering Facility: [facility] Address: [address] [place] [address] Performed By: #### 5 8410-2 ####[facility]ORATORYCLIA [id number] [address] STATES [facility] MCV (RBC) [Entitic vol] 90.2 fL Normal 80.0-100.0 [facility] Comment on above: Order Comment: Speci men Type: BLOOD SPECIMENOrdering Facility: [facility] Address: [address] [place] [address] Performed By: #### 5 8410-2 ####[facility]ORATORYCLIA [id number] [place] [address] [place] Nucleated RBC (Bld) [#/Vol] 10*3/uL Normal <0.01 [facility] Comment on above: Order Comment: Speci men Type: BLOOD SPECIMENOrdering Facility: [facility] Address: [address] [place] [address] Performed By: #### 5 8410-2 ####[facility]ORATORYCLIA [id number] [place] [address] [place] Platelet mean volume (Bld) [Entitic vol] 9.9 fL Normal 9.0-12.7 [facility] Comment on above: Order Comment: Speci men Type: BLOOD SPECIMENOrdering Facility: [facility] Address: [address] [place] [address] Performed By: #### 5 8410-2 ####[facility]ATORYCLIA [id number] [address] [place] Platelets (Bld) [#/Vol] 333 10*3/uL Normal 150-400 [facility] Comment on above: Order Comment: Speci men Type: BLOOD SPECIMENOrdering Facility: [facility] Address: [address] [place] [address] Performed By: #### 5 8410-2 ####[facility]ORATORYCLIA [id number] [place] [address] [place] RBC (Bld) [#/Vol] 3.38 10*6/uL Low 4.20-6.00 [facility] Comment on above: Order Comment: Speci men Type: BLOOD SPECIMENOrdering Facility: [facility] Address: [address] [address] Performed By: #### 5 8410-2 ####[facility]ORATORYCLIA [id number] [place] [address] [place] WBC (Bld) [#/Vol] 9.71 10*3/uL Normal 3.70-11.00 [facility] Comment on above: Order Comment: Speci men Type: BLOOD SPECIMENOrdering Facility: [facility] Address: [address] [address] Performed By: #### 5 8410-2 ####[facility]ORATORYCLIA [id number] [address] [place] CNDSon 06-28-2021 CNDS Normal [facility] CONSULT PROGon 06-28-2021 CONSULT PROG Normal [facility] Magnesium SerPl-mCncon 06-28 Magnesium [Mass/Vol] 2.2 mg/dL Normal 1.7-2.3 [facility] Comment on above: Order Comment: Speci men Type: BLOOD SPECIMENOrdering Facility: [facility] Address: [address] [address] Performed By: #### 2 4321-2, ####[facility]ORATORYCLIA [id number] [address] Vancomycin random [Mass/Vol] on 06-28-2021 Vancomycin [Mass/Vol] 23.0 ug/mL High 10.0-20.0 [facility] Comment on above: Order Comment: Speci men Type: BLOOD SPECIMENOrdering Facility: [facility] Address: [address] [place] [address] Result Comment: Refe rence ranges and high/low indicator flags are provided as general guidelines only. The treating physician must determine appropriate target levels/dosing based on the specific clinical situation. Performed By: #### 4 091-5 ####[facility]ORATORYCLIA [id number] [address] OF [facility] ALLIED HEALTHon 06-27-2021 ALLIED HEALTH Normal [facility] Basic metabolic 2000 panelon 06-27-2021 Anion gap [Moles/Vol] 10 mmol/L Normal 9-18 [facility] Comment on above: Order Comment: Speci men Type: BLOOD SPECIMENOrdering Facility: [facility] Address: [address] [address] Performed By: #### 2 4321-2, ####[facility]ORATORYCLIA [id number] [place] [address] [place] Calcium [Mass/Vol] 8.8 mg/dL Normal 8.5-10.2 [facility] Comment on above: Order Comment: Speci men Type: BLOOD SPECIMENOrdering Facility: [facility] Address: [address] [place] [address] Performed By: #### 2 4321-2, ####[facility]ORATORYCLIA [id number] [place] [address] [place] Chloride [Moles/Vol] 104 mmol/L Normal 97-105 [facility] Comment on above: Order Comment: Speci men Type: BLOOD SPECIMENOrdering Facility: [facility] Address: [address] [place] [address] Performed By: #### 2 4321-2, ####[facility]ATORYCLIA [id number] [address] [place] CO2 [Moles/Vol] 26 mmol/L Normal 22-30 [facility] Comment on above: Order Comment: Speci men Type: BLOOD SPECIMENOrdering Facility: [facility] Address: [address] [place] [address] Performed By: #### 2 4320-2, ####[facility]ORATORYCLIA [id number] [place] [address] [place] Creatinine [Mass/Vol] 0.57 mg/dL Low 0.73-1.22 [facility] Comment on above: Order Comment: Speci men Type: BLOOD SPECIMENOrdering Facility: [facility] Address: [address] [place] [address] Performed By: #### 2 4320-2, ####[facility]ORATORYCLIA [id number] [address] [place] GFR/1.73 sq M.predicted MDRD (S/P/Bld) [Vol rate/Area] mL/min/{1.73_m2} Normal [facility] Comment on above: Order Comment: Speci men Type: BLOOD SPECIMENOrdering Facility: [facility] Address: [address] [place], [place] [id number] Result Comment: >60e GFR (Estimated GFR) Units [...] actual GFR. Performed By: #### 2 4321-2, 99789-9 ####[facility]ORATORYCLIA [id number] [place] [address] [place] Glucose [Mass/Vol] 133 mg/dL High 74-99 [facility] Comment on above: Order Comment: Shira feldmna Type: BLOOD SPECIMENOrdering Facility: [facility] Address: [address] [place] [address] Result Comment: The [place] [employer] (ADA) provides guidance for cutoff [...] Standards of Medical Care in Diabetes 2016, [place] [employer]. Diabetes Care. 2016.39(Suppl 1). Performed By: #### 2 4321-2, 07854-9 ####[facility]ORATORYCLIA [id number] [place] [address] [place] Potassium [Moles/Vol] 4.2 mmol/L Normal 3.7-5.1 [facility] Comment on above: Order Comment: Speci men Type: BLOOD SPECIMENOrdering Facility: [facility] Address: [address] [place] [address] Performed By: #### 2 4321-2, 22823-8 ####[facility]ORATORYCLIA [id number] [address] Sodium [Moles/Vol] 140 mmol/L Normal 136-144 [facility] Comment on above: Order Comment: Speci men Type: BLOOD SPECIMENOrdering Facility: [facility] Address: [address] [place] [address] Performed By: #### 2 4321-2, ####[facility]ORATORYCLIA [id number] [address] STATES OF [facility] Urea nitrogen [Mass/Vol] 24 mg/dL Normal 9-24 [facility] Comment on above: Order Comment: Speci men Type: BLOOD SPECIMENOrdering Facility: [facility] Address: [address] [place] [address] Performed By: #### 2 432-2, ####[facility]ORATORYCLIA [id number] [address] CASE MANAGEMon 06-27-2021 CASE MANAGEM Normal [facility] CBC panel Auto (Bld)on 06-27 Erythrocyte distribution width (RBC) [Ratio] 15.8 % High 11.5-15.0 [facility] Comment on above: Order Comment: Speci men Type: BLOOD SPECIMENOrdering Facility: [facility] Address: [address] [place] [address] Performed By: #### 5 8410-2 ####[facility]ORATORYCLIA [id number] [address] Hematocrit (Bld) [Volume fraction] 31.4 % Low 39.0-51.0 [facility] Comment on above: Order Comment: Speci men Type: BLOOD SPECIMENOrdering Facility: [facility] Address: [address] [place] [address] Performed By: #### 5 8410-2 ####[facility]ORATORYCLIA [id number] [address] Hemoglobin (Bld) [Mass/Vol] 9.3 g/dL Low 13.0-17.0 [facility] Comment on above: Order Comment: Speci men Type: BLOOD SPECIMENOrdering Facility: [facility] Address: [address] [place] [address] Performed By: #### 5 8410-2 ####[facility]ORATORYCLIA [id number] [address] MCH (RBC) [Entitic mass] 27.0 pg Normal 26.0-34.0 [facility] Comment on above: Order Comment: Speci men Type: BLOOD SPECIMENOrdering Facility: [facility] Address: [address] [place] [address] Performed By: #### 5 8410-2 ####[facility]ORATORYCLIA [id number] [address] MCHC (RBC) [Mass/Vol] 29.6 g/dL Low 30.5-36.0 [facility] Comment on above: Order Comment: Speci men Type: BLOOD SPECIMENOrdering Facility: [facility] Address: [address] [place] [address] Performed By: #### 5 8410-2 ####[facility]ORATORYCLIA [id number] [address] MCV (RBC) [Entitic vol] 91.3 fL Normal 80.0-100.0 [facility] Comment on above: Order Comment: Speci men Type: BLOOD SPECIMENOrdering Facility: [facility] Address: [address] [place] [address] Performed By: #### 5 8410-2 ####[facility]ORATORYCLIA [id number] [address] Nucleated RBC (Bld) [#/Vol] 10*3/uL Normal <0.01 [facility] Comment on above: Order Comment: Speci men Type: BLOOD SPECIMENOrdering Facility: [facility] Address: [address] [place] [address] Performed By: #### 5 8410-2 ####[facility]ORATORYCLIA [id number] [address] [place] Platelet mean volume (Bld) [Entitic vol] 10.3 fL Normal 9.0-12.7 [facility] Comment on above: Order Comment: Speci men Type: BLOOD SPECIMENOrdering Facility: [facility] Address: [address] [place] [address] Performed By: #### 5 8410-2 ####[facility]ORATORYCLIA [id number] [address] [place] Platelets (Bld) [#/Vol] 359 10*3/uL Normal 150-400 [facility] Comment on above: Order Comment: Speci men Type: BLOOD SPECIMENOrdering Facility: [facility] Address: [address] [place] [address] Performed By: #### 5 8410-2 ####[facility]ORATORYCLIA [id number] [place] [address] [place] RBC (Bld) [#/Vol] 3.44 10*6/uL Low 4.20-6.00 [facility] Comment on above: Order Comment: Speci men Type: BLOOD SPECIMENOrdering Facility: [facility] Address: [address] [place], [place] [address] Performed By: #### 5 8410-2 ####[facility]ORATORYCLIA [id number] [place] [address] [place] WBC (Bld) [#/Vol] 10.73 10*3/uL Normal 3.70-11.00 [facility] Comment on above: Order Comment: Speci men Type: BLOOD SPECIMENOrdering Facility: [facility] Address: [address] [place] [address] Performed By: #### 5 8410-2 ####[facility]ORATORYCLIA [id number] [place] [address] [place] [facility] Magnesium [Mass/Vol] 2.2 mg/dL Normal 1.7-2.3 [facility] Comment on above: Order Comment: Speci men Type: BLOOD SPECIMENOrdering Facility: [facility] Address: [address] [place] [address] Performed By: #### 2 4321-2, 01874-1 ####[facility]ORATORYCLIA [id number] [place] [address] [place] NT-proBNP SerPl-[facility] Natriuretic peptide.B prohormone N-Terminal [Mass/Vol] 184 pg/mL High <125 [facility] Comment on above: Order Comment: Speci men Type: BLOOD SPECIMENOrdering Facility: [facility] Address: [address] [place] [address] Performed By: #### 3 3762-6 ####[facility]ORATORYCLIA [id number] [place] [address] [place] NUTRITIONon 06-27-2021 NUTRITION [...] Comment: Speci men Type: BLOOD SPECIMENOrdering Facility: [facility] Address: [address] [place] [address] Performed By: #### 1 9123-9, 64551-3 ####[facility]ORATORYCLIA [id number] [place] [address] [place] Calcium [Mass/Vol] 8.7 mg/dL Normal 8.5-10.2 [facility] Comment on above: Order Comment: Speci men Type: BLOOD SPECIMENOrdering Facility: [facility] Address: [address] [address] Performed By: #### 1 9123-9, 26397-1 ####[facility]ORATORYCLIA [id number] [address] [place] Chloride [Moles/Vol] 105 mmol/L Normal 97-105 [facility] Comment on above: Order Comment: Speci men Type: BLOOD SPECIMENOrdering Facility: [facility] Address: [address] [place] [address] Performed By: #### 1 9123-9, 11552-3 ####[facility]ORATORYCLIA [id number] [address] [place] CO2 [Moles/Vol] 26 mmol/L Normal 22-30 [facility] Comment on above: Order Comment: Speci men Type: BLOOD SPECIMENOrdering Facility: [facility] Address: [address] [place] [address] Performed By: #### 1 9123-9, 49094-0 ####[facility]ORATORYCLIA [id number] [place] [address] [place] Creatinine [Mass/Vol] 0.56 mg/dL Low 0.73-1.22 [facility] Comment on above: Order Comment: Speci men Type: BLOOD SPECIMENOrdering Facility: [facility] Address: [address] [place] [address] Performed By: #### 1 9123-9, 62624-2 ####[facility]ATORYCLIA [id number] [place] [address] [place] GFR/1.73 sq M.predicted MDRD (S/P/Bld) [Vol rate/Area] mL/min/{1.73_m2} Normal [facility] Comment on above: Order Comment: Speci men Type: BLOOD SPECIMENOrdering Facility: [facility] Address: [address] [place] [address] Result Comment: >60e GFR (Estimated GFR) Units [...] actual GFR. Performed By: #### 1 9123-9, 62829-1 ####[facility] [id number] [place] [address] [place] Glucose [Mass/Vol] 134 mg/dL High 74-99 [facility] Comment on above: Order Comment: Shira feldman Type: BLOOD SPECIMENOrdering Facility: [facility] Address: [address] [place] [address] Result Comment: The [place] [employer] (ADA) provides guidance for cutoff [...] Standards of Medical Care in Diabetes 2016, [place] [employer]. Diabetes Care. 2016.39(Suppl 1). Performed By: #### 1 9123-9, 83680-6 ####[facility]ORATORYCLIA [id number] [place] [address] [place] Potassium [Moles/Vol] 3.8 mmol/L Normal 3.7-5.1 [facility] Comment on above: Order Comment: Shira feldman Type: BLOOD SPECIMENOrdering Facility: [facility] Address: [address] [place], [place] [address] Performed By: #### 1 9123-9, 00004-5 ####[facility]ORATORYCLIA [id number] [address] STATES [facility] Sodium [Moles/Vol] 140 mmol/L Normal 136-144 [facility] Comment on above: Order Comment: Speci men Type: BLOOD SPECIMENOrdering Facility: [facility] Address: [address] [place] [address] Performed By: #### 1 9123-9, 01027-1 ####[facility]ATORYCLIA [id number] [address] [place] Urea nitrogen [Mass/Vol] 24 mg/dL Normal 9-24 [facility] Comment on above: Order Comment: Speci men Type: BLOOD SPECIMENOrdering Facility: [facility] Address: [address] [place] [address] Performed By: #### 1 9123-9, 55753-2 ####[facility]ATORYCLIA [id number] [address] STATES [facility] CBC panel Auto (Bld)on 06-26 Erythrocyte distribution width (RBC) [Ratio] 15.9 % High 11.5-15.0 [facility] Comment on above: Order Comment: Speci men Type: BLOOD SPECIMENOrdering Facility: [facility] Address: [address] [place] [address] Performed By: #### 5 8410-2 ####[facility]ORATORYCLIA [id number] [address] STATES [facility] Hematocrit (Bld) [Volume fraction] 29.8 % Low 39.0-51.0 [facility] Comment on above: Order Comment: Speci men Type: BLOOD SPECIMENOrdering Facility: [facility] Address: [address] [place] [address] Performed By: #### 5 8410-2 ####[facility]ORATORYCLIA [id number] [address] [place] Hemoglobin (Bld) [Mass/Vol] 9.1 g/dL Low 13.0-17.0 [facility] Comment on above: Order Comment: Speci men Type: BLOOD SPECIMENOrdering Facility: [facility] Address: [address] [place] [address] Performed By: #### 5 8410-2 ####[facility]ORATORYCLIA [id number] [address] MCH (RBC) [Entitic mass] 27.8 pg Normal 26.0-34.0 [facility] Comment on above: Order Comment: Speci men Type: BLOOD SPECIMENOrdering Facility: [facility] Address: [address] [place] [address] Performed By: #### 5 8410-2 ####[facility]ORATORYCLIA [id number] [address] MCHC (RBC) [Mass/Vol] 30.5 g/dL Normal 30.5-36.0 [facility] Comment on above: Order Comment: Speci men Type: BLOOD SPECIMENOrdering Facility: [facility] Address: [address] [place] [address] Performed By: #### 5 8410-2 ####[facility]ORATORYCLIA [id number] [address] MCV (RBC) [Entitic vol] 91.1 fL Normal 80.0-100.0 [facility] Comment on above: Order Comment: Speci men Type: BLOOD SPECIMENOrdering Facility: [facility] Address: [address] [place] [address] Performed By: #### 5 8410-2 ####[facility]ATORYCLIA [id number] [address] Nucleated RBC (Bld) [#/Vol] 10*3/uL Normal <0.01 [facility] Comment on above: Order Comment: Speci men Type: BLOOD SPECIMENOrdering Facility: [facility] Address: [address] [place] [address] Performed By: #### 5 8410-2 ####[facility]ORATORYCLIA [id number] [address] [place] Platelet mean volume (Bld) [Entitic vol] 10.3 fL Normal 9.0-12.7 [facility] Comment on above: Order Comment: Speci men Type: BLOOD SPECIMENOrdering Facility: [facility] Address: [address] [place] [address] Performed By: #### 5 8410-2 ####[facility]ORATORYCLIA [id number] [address] [place] Platelets (Bld) [#/Vol] 336 10*3/uL Normal 150-400 [facility] Comment on above: Order Comment: Speci men Type: BLOOD SPECIMENOrdering Facility: [facility] Address: [address] [place] [address] Performed By: #### 5 8410-2 ####[facility]ATORYCLIA [id number] [address] [place] RBC (Bld) [#/Vol] 3.27 10*6/uL Low 4.20-6.00 [facility] Comment on above: Order Comment: Speci men Type: BLOOD SPECIMENOrdering Facility: [facility] Address: [address] [place] [address] Performed By: #### 5 8410-2 ####[facility] LABORATORYCLIA [id number] [address] [place] WBC (Bld) [#/Vol] 9.14 10*3/uL Normal 3.70-11.00 [facility] Comment on above: Order Comment: Speci men Type: BLOOD SPECIMENOrdering Facility: [facility] Address: [address] [place] [address] Performed By: #### 5 8410-2 ####[facility] LABORATORYCLIA [id number] [address] [place] CONSULT PROGon 06-26-2021 CONSULT PROG Normal [facility] Magnesium SerPl-mCncon 02-20 -2022 Magnesium [Mass/Vol] 2.2 mg/dL Normal 1.7-2.3 [facility] Comment on above: Order Comment: Speci men Type: BLOOD SPECIMENOrdering Facility: [facility] Address: [address] [place] [address] Performed By: #### 1 9123-9, 78601-8 ####[facility] LABORATORYCLIA [id number] [address] [place] NURSING PROGon 06-26-2021 NURSING PROG Normal [facility] [facility]OG Normal [facility] Basic metabolic 2000 panelon 06-25-2021 Anion gap [Moles/Vol] 8 mmol/L Low 9-18 [facility] Comment on above: Order Comment: Speci men Type: BLOOD SPECIMENOrdering Facility: [facility] Address: [address] [place] [address] Performed By: #### 2 4321-2, ####[facility] LABORATORYCLIA [id number] [place] [address] [place] Calcium [Mass/Vol] 8.8 mg/dL Normal 8.5-10.2 [facility] Comment on above: Order Comment: Speci men Type: BLOOD SPECIMENOrdering Facility: [facility] Address: [address] [place] [address] Performed By: #### 2 4321-2, ####[facility]ORATORYCLIA [id number] [place] [address] [place] Chloride [Moles/Vol] 105 mmol/L Normal 97-105 [facility] Comment on above: Order Comment: Speci men Type: BLOOD SPECIMENOrdering Facility: [facility] Address: [address] [place] [address] Performed By: #### 2 4321-2, ####[facility] LABORATORYCLIA [id number] [place] [address] [place] CO2 [Moles/Vol] 27 mmol/L Normal 22-30 [facility] Comment on above: Order Comment: Speci francia Type: BLOOD SPECIMENOrdering Facility: [facility] Address: [address] [phone] Performed By: #### 2 432-, ####[facility]ATORYCLIA [id number] [place] [address] [place] Creatinine [Mass/Vol] 0.59 mg/dL Low 0.73-1.22 [facility] Comment on above: Order Comment: Speci men Type: BLOOD SPECIMENOrdering Facility: [facility] Address: [address] [place] [address] Performed By: #### 2 43205-08, ####[facility] [id number] [place] [address] [place] GFR/1.73 sq M.predicted MDRD (S/P/Bld) [Vol rate/Area] mL/min/{1.73_m2} Normal [facility] Comment on above: Order Comment: Shira francia Type: BLOOD SPECIMENOrdering Facility: [facility] Address: [address] [place] [address] Result Comment: >60e GFR (Estimated GFR) Units [...] Performed By: #### 2 432-, ####[facility]ATORYCLIA [id number] [place] [address] [place] Glucose [Mass/Vol] 132 mg/dL High 74-99 [facility] Comment on above: Order Comment: Johncara feldman Type: BLOOD SPECIMENOrdering Facility: [facility] Address: [address] [place], [place] [phone] Result Comment: The [place] [employer] (ADA) provides guidance for cutoff [...] Standards of Medical Care in Diabetes 2016, [place] [employer]. Diabetes Care. 2016.39(Suppl 1). Performed By: #### 2 4320-06, ####[facility]ATORYCLIA [id number] [place] [address] [place] Potassium [Moles/Vol] 3.9 mmol/L Normal 3.7-5.1 [facility] Comment on above: Order Comment: Speci men Type: BLOOD SPECIMENOrdering Facility: [facility] Address: [address] [address] Performed By: #### 2 4320-06, ####[facility]ATORYCLIA [id number] [place] [address] [place] Sodium [Moles/Vol] 140 mmol/L Normal 136-144 [facility] Comment on above: Order Comment: Speci men Type: BLOOD SPECIMENOrdering Facility: [facility] Address: [address] [address] Performed By: #### 2 4320-06, ####[facility]ATORYCLIA [id number] [place] [address] [place] Urea nitrogen [Mass/Vol] 24 mg/dL Normal 9-24 [facility] Comment on above: Order Comment: Speci men Type: BLOOD SPECIMENOrdering Facility: [facility] Address: [address] [address] Performed By: #### 2 4320-06, 49902-4 ####[facility]ORATORYCLIA [id number] [address] [place] CASE MANAGEMon 06-25-2021 CASE MANAGEM Normal [facility] CBC panel Auto (Bld)on 06-25 Erythrocyte distribution width (RBC) [Ratio] 15.9 % High 11.5-15.0 [facility] Comment on above: Order Comment: Speci men Type: BLOOD SPECIMENOrdering Facility: [facility] Address: [address] [place] [address] Performed By: #### 5 8410-2 ####[facility]ORATORYCLIA [id number] [address] Hematocrit (Bld) [Volume fraction] 31.0 % Low 39.0-51.0 [facility] Comment on above: Order Comment: Speci men Type: BLOOD SPECIMENOrdering Facility: [facility] Address: [address] [place] [address] Performed By: #### 5 8410-2 ####[facility]ATORYCLIA [id number] [address] Hemoglobin (Bld) [Mass/Vol] 9.4 g/dL Low 13.0-17.0 [facility] Comment on above: Order Comment: Speci men Type: BLOOD SPECIMENOrdering Facility: [facility] Address: [address] [place] [address] Performed By: #### 5 8410-2 ####[facility]ORATORYCLIA [id number] [address] [place] MCH (RBC) [Entitic mass] 28.1 pg Normal 26.0-34.0 [facility] Comment on above: Order Comment: Speci men Type: BLOOD SPECIMENOrdering Facility: [facility] Address: [address] [place] [address] Performed By: #### 5 8410-2 ####[facility]ORATORYCLIA [id number] [address] [place] MCHC (RBC) [Mass/Vol] 30.3 g/dL Low 30.5-36.0 [facility] Comment on above: Order Comment: Speci men Type: BLOOD SPECIMENOrdering Facility: [facility] Address: [address] [place] [address] Performed By: #### 5 8410-2 ####[facility]ORATORYCLIA [id number] [address] [place] MCV (RBC) [Entitic vol] 92.5 fL Normal 80.0-100.0 [facility] Comment on above: Order Comment: Speci men Type: BLOOD SPECIMENOrdering Facility: [facility] Address: [address] [place] [address] Performed By: #### 5 8410-2 ####[facility]ORATORYCLIA [id number] [address] STATES OF [facility] Nucleated RBC (Bld) [#/Vol] 10*3/uL Normal <0.01 [facility] Comment on above: Order Comment: Speci men Type: BLOOD SPECIMENOrdering Facility: [facility] Address: [address] [place] [address] Performed By: #### 5 8410-2 ####[facility]ORATORYCLIA [id number] [address] [place] Platelet mean volume (Bld) [Entitic vol] 10.5 fL Normal 9.0-12.7 [facility] Comment on above: Order Comment: Speci men Type: BLOOD SPECIMENOrdering Facility: [facility] Address: [address] [place] [address] Performed By: #### 5 8410-2 ####[facility]ORATORYCLIA [id number] [address] [place] Platelets (Bld) [#/Vol] 311 10*3/uL Normal 150-400 [facility] Comment on above: Order Comment: Speci men Type: BLOOD SPECIMENOrdering Facility: [facility] Address: [address] [place] [address] Performed By: #### 5 8410-2 ####[facility]ORATORYCLIA [id number] [address] STATES OF [facility] RBC (Bld) [#/Vol] 3.35 10*6/uL Low 4.20-6.00 [facility] Comment on above: Order Comment: Speci men Type: BLOOD SPECIMENOrdering Facility: [facility] Address: [address] [place] [address] Performed By: #### 5 8410-2 ####[facility]ORATORYCLIA [id number] [address] OF [facility] WBC (Bld) [#/Vol] 9.57 10*3/uL Normal 3.70-11.00 [facility] Comment on above: Order Comment: Speci men Type: BLOOD SPECIMENOrdering Facility: [facility] Address: [address] [place] [address] Performed By: #### 5 8410-2 ####[facility]ORATORYCLIA [id number] [address] OF [place] Magnesium SerPl-mCncon 06-25 Magnesium [Mass/Vol] 2.4 mg/dL High 1.7-2.3 [facility] Comment on above: Order Comment: Speci men Type: BLOOD SPECIMENOrdering Facility: [facility] Address: [address] [place] [address] Performed By: #### 2 4321-2, 09930-4 ####[facility]ORATORYCLIA [id number] [address] OF [place] Basic metabolic 2000 panelon 06-24-2021 Anion gap [Moles/Vol] 9 mmol/L Normal -18 [facility] Comment on above: Order Comment: Speci men Type: BLOOD SPECIMENOrdering Facility: [facility] Address: [address] [place] [address] Performed By: #### 1 9123-9, 09133-1 ####[facility]ORATORYCLIA [id number] [place] [address] [place] Calcium [Mass/Vol] 8.6 mg/dL Normal 8.5-10.2 [facility] Comment on above: Order Comment: Speci men Type: BLOOD SPECIMENOrdering Facility: [facility] Address: [address] [place] [address] Performed By: #### 1 9123-9, 57262-1 ####[facility]ORATORYCLIA [id number] [place] [address] [place] Chloride [Moles/Vol] 103 mmol/L Normal 97-105 [facility] Comment on above: Order Comment: Speci men Type: BLOOD SPECIMENOrdering Facility: [facility] Address: [address] [place] [address] Performed By: #### 1 9123-9, 68457-9 ####[facility]ORATORYCLIA [id number] [address] [place] CO2 [Moles/Vol] 26 mmol/L Normal 22-30 [facility] Comment on above: Order Comment: Speci men Type: BLOOD SPECIMENOrdering Facility: [facility] Address: [address] [place] [address] Performed By: #### 1 9123-9, 68506-4 ####[facility]ORATORYCLIA [id number] [place] [address] [place] Creatinine [Mass/Vol] 0.60 mg/dL Low 0.73-1.22 [facility] Comment on above: Order Comment: Speci men Type: BLOOD SPECIMENOrdering Facility: [facility] Address: [address] [place] [address] Performed By: #### 1 9123-9, 37282-9 ####[facility]ATORYCLIA [id number] [place] [address] [place] GFR/1.73 sq M.predicted MDRD (S/P/Bld) [Vol rate/Area] mL/min/{1.73_m2} Normal [facility] Comment on above: Order Comment: Shira feldman Type: BLOOD SPECIMENOrdering Facility: [facility] Address: [address] [place], [place] [phone] Result Comment: >60e GFR (Estimated GFR) Units [...] actual GFR. Performed By: #### 1 9123-9, 62854-9 ####[facility]ATORYCLIA [id number] [place] [address] [place] Glucose [Mass/Vol] 126 mg/dL High 74-99 [facility] Comment on above: Order Comment: Johncara feldman Type: BLOOD SPECIMENOrdering Facility: [facility] Address: [address] [phone] Result Comment: The [place] [employer] (ADA) provides guidance for cutoff [...] Standards of Medical Care in Diabetes 2016, [place] [employer]. Diabetes Care. 2016.39(Suppl 1). Performed By: #### 1 9123-9, 62969-6 ####[facility]ORATORYCLIA [id number] [place] [address] [place] Potassium [Moles/Vol] 3.9 mmol/L Normal 3.7-5.1 [facility] Comment on above: Order Comment: Speci men Type: BLOOD SPECIMENOrdering Facility: [facility] Address: [address] [place] [address] Performed By: #### 1 9123-9, 90675-9 ####[facility]ORATORYCLIA [id number] [address] STATES OF [facility] Sodium [Moles/Vol] 138 mmol/L Normal 136-144 [facility] Comment on above: Order Comment: Speci men Type: BLOOD SPECIMENOrdering Facility: [facility] Address: [address] [place] [address] Performed By: #### 1 9123-9, 33192-6 ####[facility]ORATORYCLIA [id number] [address] [place] Urea nitrogen [Mass/Vol] 24 mg/dL Normal 9-24 [facility] Comment on above: Order Comment: Speci men Type: BLOOD SPECIMENOrdering Facility: [facility] Address: [address] [place] [address] Performed By: #### 1 9123-9, 50392-2 ####[facility]ORATORYCLIA [id number] [address] OF [facility] CASE MANAGEMon 06-24-2021 CASE MANAGEM Normal [facility] CASE MANAGEM Normal [facility] CASE MANAGEM Normal [facility] CBC panel Auto (Bld)on 06-24 Erythrocyte distribution width (RBC) [Ratio] 16.1 % High 11.5-15.0 [facility] Comment on above: Order Comment: Speci men Type: BLOOD SPECIMENOrdering Facility: [facility] Address: [address] [place] [address] Performed By: #### 5 8410-2 ####[facility]ORATORYCLIA [id number] [address] [place] Hematocrit (Bld) [Volume fraction] 31.7 % Low 39.0-51.0 [facility] Comment on above: Order Comment: Speci men Type: BLOOD SPECIMENOrdering Facility: [facility] Address: [address] [place] [address] Performed By: #### 5 8410-2 ####[facility]ORATORYCLIA [id number] [address] Hemoglobin (Bld) [Mass/Vol] 9.7 g/dL Low 13.0-17.0 [facility] Comment on above: Order Comment: Speci men Type: BLOOD SPECIMENOrdering Facility: [facility] Address: [address] [place] [address] Performed By: #### 5 8410-2 ####[facility]ORATORYCLIA [id number] [address] MCH (RBC) [Entitic mass] 28.0 pg Normal 26.0-34.0 [facility] Comment on above: Order Comment: Speci men Type: BLOOD SPECIMENOrdering Facility: [facility] Address: [address] [place] [address] Performed By: #### 5 8410-2 ####[facility]ORATORYCLIA [id number] [address] MCHC (RBC) [Mass/Vol] 30.6 g/dL Normal 30.5-36.0 [facility] Comment on above: Order Comment: Speci men Type: BLOOD SPECIMENOrdering Facility: [facility] Address: [address] [place] [address] Performed By: #### 5 8410-2 ####[facility]ORATORYCLIA [id number] [address] MCV (RBC) [Entitic vol] 91.4 fL Normal 80.0-100.0 [facility] Comment on above: Order Comment: Speci men Type: BLOOD SPECIMENOrdering Facility: [facility] Address: [address] [place] [address] Performed By: #### 5 8410-2 ####[facility]ORATORYCLIA [id number] [address] Nucleated RBC (Bld) [#/Vol] 10*3/uL Normal <0.01 [facility] Comment on above: Order Comment: Speci men Type: BLOOD SPECIMENOrdering Facility: [facility] Address: [address] [place] [address] Performed By: #### 5 8410-2 ####[facility]ORATORYCLIA [id number] [address] OF [place] Platelet mean volume (Bld) [Entitic vol] 11.0 fL Normal 9.0-12.7 [facility] Comment on above: Order Comment: Speci men Type: BLOOD SPECIMENOrdering Facility: [facility] Address: [address] [place] [address] Performed By: #### 5 8410-2 ####[facility]ORATORYCLIA [id number] [address] Platelets (Bld) [#/Vol] 358 10*3/uL Normal 150-400 [facility] Comment on above: Order Comment: Speci men Type: BLOOD SPECIMENOrdering Facility: [facility] Address: [address] [place] [address] Performed By: #### 5 8410-2 ####[facility]ORATORYCLIA [id number] [address] OF [place] RBC (Bld) [#/Vol] 3.47 10*6/uL Low 4.20-6.00 [facility] Comment on above: Order Comment: Speci men Type: BLOOD SPECIMENOrdering Facility: [facility] Address: [address] [place] [address] Performed By: #### 5 8410-2 ####[facility]ORATORYCLIA [id number] [address] [place] WBC (Bld) [#/Vol] 10.07 10*3/uL Normal 3.70-11.00 [facility] Comment on above: Order Comment: Speci men Type: BLOOD SPECIMENOrdering Facility: [facility] Address: [address] [place] [address] Performed By: #### 5 8410-2 ####[facility]ATORYCLIA [id number] [place] [address] [place] Magnesium SerPl-mCncon 06-24 Magnesium [Mass/Vol] 2.3 mg/dL Normal 1.7-2.3 [facility] Comment on above: Order Comment: Speci men Type: BLOOD SPECIMENOrdering Facility: [facility] Address: [address] [place] [address] Performed By: #### 1 9123-9, 17245-4 ####[facility]ATORYCLIA [id number] [place] [address] [place] ALLIED HEALTHon 06-23-2021 ALLIED HEALTH Normal [facility] Basic metabolic 2000 panelon 06-23-2021 Anion gap [Moles/Vol] 9 mmol/L Normal 9-18 [facility] Comment on above: Order Comment: Speci men Type: BLOOD SPECIMENOrdering Facility: [facility] Address: [address] [place] [address] Performed By: #### 1 9123-9, 84355-6 ####[facility]ATORYCLIA [id number] [place] [address] [place] Calcium [Mass/Vol] 8.4 mg/dL Low 8.5-10.2 [facility] Comment on above: Order Comment: Speci men Type: BLOOD SPECIMENOrdering Facility: [facility] Address: [address] [place], [place] [id number] Performed By: #### 1 9123-9, 17950-5 ####[facility]ORATORYCLIA [id number] [place] [address] [place] Chloride [Moles/Vol] 104 mmol/L Normal 97-105 [facility] Comment on above: Order Comment: Speci men Type: BLOOD SPECIMENOrdering Facility: [facility] Address: [address] [place] [address] Performed By: #### 1 91239, ####[facility]ORATORYCLIA [id number] [place] [address] [place] [facility] CO2 [Moles/Vol] 26 mmol/L Normal 22-30 [facility] Comment on above: Order Comment: Speci men Type: BLOOD SPECIMENOrdering Facility: [facility] Address: [address] [place] [address] Performed By: #### 1 919, ####[facility] [id number] [place] [address] [place] Creatinine [Mass/Vol] 0.62 mg/dL Low 0.73-1.22 [facility] Comment on above: Order Comment: Speci men Type: BLOOD SPECIMENOrdering Facility: [facility] Address: [address] [place] [address] Performed By: #### 1 91239, ####[facility]CLIA [id number] [address] [place] GFR/1.73 sq M.predicted MDRD (S/P/Bld) [Vol rate/Area] mL/min/{1.73_m2} Normal [facility] Comment on above: Order Comment: Speci men Type: BLOOD SPECIMENOrdering Facility: [facility] Address: [address] [place] [address] Result Comment: >60e GFR (Estimated GFR) Units [...] actual GFR. Performed By: #### 1 9123-9, 29503-7 ####[facility]ORATORYCLIA [id number] [place] [address] [place] Glucose [Mass/Vol] 111 mg/dL High 74-99 [facility] Comment on above: Order Comment: Shira men Type: BLOOD SPECIMENOrdering Facility: [facility] Address: [address] [place] [address] Result Comment: The [place] [employer] (ADA) provides guidance for cutoff [...] Standards of Medical Care in Diabetes 2016, [place] [employer]. Diabetes Care. 2016.39(Suppl 1). Performed By: #### 1 9123-9, 47433-6 ####[facility] LABORATORYCLIA [id number] [place] [address] [place] Potassium [Moles/Vol] 4.1 mmol/L Normal 3.7-5.1 [facility] Comment on above: Order Comment: Shira feldman Type: BLOOD SPECIMENOrdering Facility: [facility] Address: [address] [place] [address] Performed By: #### 1 9123-9, 11912-6 ####[facility]ORATORYCLIA [id number] [place] [address] [place] Sodium [Moles/Vol] 139 mmol/L Normal 136-144 [facility] Comment on above: Order Comment: Shira francia Type: BLOOD SPECIMENOrdering Facility: [facility] Address: [address] [place] [address] Performed By: #### 1 9123-9, 97182-6 ####[facility]ORATORYCLIA [id number] [place] [address] [place] Urea nitrogen [Mass/Vol] 26 mg/dL High 9-24 [facility] Comment on above: Order Comment: Speci men Type: BLOOD SPECIMENOrdering Facility: [facility] Address: [address] [place] [address] Performed By: #### 1 9123-9, 98006-7 ####[facility]ORATORYCLIA [id number] [address] [place] CASE MANAGEMon 06-23-2021 CASE MANAGEM Normal [facility] CBC panel Auto (Bld)on 06-23 Erythrocyte distribution width (RBC) [Ratio] 16.0 % High 11.5-15.0 [facility] Comment on above: Order Comment: Speci men Type: BLOOD SPECIMENOrdering Facility: [facility] Address: [address] [place] [address] Performed By: #### 5 8410-2 ####[facility]ORATORYCLIA [id number] [address] [place] Hematocrit (Bld) [Volume fraction] 31.1 % Low 39.0-51.0 [facility] Comment on above: Order Comment: Speci men Type: BLOOD SPECIMENOrdering Facility: [facility] Address: [address] [place] [address] Performed By: #### 5 8410-2 ####[facility]ORATORYCLIA [id number] [place] [address] [place] Hemoglobin (Bld) [Mass/Vol] 9.5 g/dL Low 13.0-17.0 [facility] Comment on above: Order Comment: Speci men Type: BLOOD SPECIMENOrdering Facility: [facility] Address: [address] [place] [address] Performed By: #### 5 8410-2 ####[facility]ORATORYCLIA [id number] [address] [place] MCH (RBC) [Entitic mass] 28.1 pg Normal 26.0-34.0 [facility] Comment on above: Order Comment: Speci men Type: BLOOD SPECIMENOrdering Facility: [facility] Address: [address] [place] [address] Performed By: #### 5 8410-2 ####[facility]ATORYCLIA [id number] [address] MCHC (RBC) [Mass/Vol] 30.5 g/dL Normal 30.5-36.0 [facility] Comment on above: Order Comment: Speci men Type: BLOOD SPECIMENOrdering Facility: [facility] Address: [address] [place] [address] Performed By: #### 5 8410-2 ####[facility]ORATORYCLIA [id number] [address] MCV (RBC) [Entitic vol] 92.0 fL Normal 80.0-100.0 [facility] Comment on above: Order Comment: Speci men Type: BLOOD SPECIMENOrdering Facility: [facility] Address: [address] [place] [address] Performed By: #### 5 8410-2 ####[facility] LABORATORYCLIA [id number] [address] Nucleated RBC (Bld) [#/Vol] 10*3/uL Normal <0.01 [facility] Comment on above: Order Comment: Speci men Type: BLOOD SPECIMENOrdering Facility: [facility] Address: [address] [place] [address] Performed By: #### 5 8410-2 ####[facility] LABORATORYCLIA [id number] [address] Platelet mean volume (Bld) [Entitic vol] 11.0 fL Normal 9.0-12.7 [facility] Comment on above: Order Comment: Speci men Type: BLOOD SPECIMENOrdering Facility: [facility] Address: [address] [place] [address] Performed By: #### 5 8410-2 ####[facility] LABORATORYCLIA [id number] [address] [facility] Platelets (Bld) [#/Vol] 361 10*3/uL Normal 150-400 [facility] Comment on above: Order Comment: Speci men Type: BLOOD SPECIMENOrdering Facility: [facility] Address: [address] [place] [address] Performed By: #### 5 8410-2 ####[facility] LABORATORYCLIA [id number] [place] [address] [place] RBC (Bld) [#/Vol] 3.38 10*6/uL Low 4.20-6.00 [facility] Comment on above: Order Comment: Speci men Type: BLOOD SPECIMENOrdering Facility: [facility] Address: [address] [place] [address] Performed By: #### 5 8410-2 ####[facility] LABORATORYCLIA [id number] [address] WBC (Bld) [#/Vol] 9.02 10*3/uL Normal 3.70-11.00 [facility] Comment on above: Order Comment: Speci men Type: BLOOD SPECIMENOrdering Facility: [facility] Address: [address] [place] [address] Performed By: #### 5 8410-2 ####[facility] LABORATORYCLIA [id number] [address] CONSULT PROGon 06-23-2021 CONSULT PROG Normal [facility] CONSULT PROG Normal [facility] Magnesium SerPl-mCncon 06-23 Magnesium [Mass/Vol] 2.4 mg/dL High 1.7-2.3 [facility] Comment on above: Order Comment: Speci men Type: BLOOD SPECIMENOrdering Facility: [facility] Address: [address] [place] [address] Performed By: #### 1 9123-9, 86277-0 ####[facility] LABORATORYCLIA [id number] [address] THERAPY NTon 06-23-2021 THERAPY NT Normal [facility] Vancomycin random [Mass/Vol] on 06-23-2021 Vancomycin [Mass/Vol] 22.8 ug/mL High 10.0-20.0 [facility] Comment on above: Order Comment: Speci men Type: BLOOD SPECIMENOrdering Facility: [facility] Address: [address] [place] [address] Result Comment: Refe rence ranges and high/low indicator flags are provided as general guidelines only. The treating physician must determine appropriate target levels/dosing based on the specific clinical situation. Performed By: #### 4 091-5 ####[facility] LABORATORYCLIA [id number] [place] [address] [place] XR MOD BARIUM SWALLOW W SPEE Lore 06-23-2021 XR MOD BARIUM SWALLOW W SPEECH Normal [facility] Basic metabolic 2000 panelon 06-22-2021 Anion gap [Moles/Vol] 6 mmol/L Low 9-18 [facility] Comment on above: Order Comment: Speci men Type: BLOOD SPECIMENOrdering Facility: [facility] Address: [address] [place] [address] Performed By: #### 2 4321-2, ####[facility] LABORATORYCLIA [id number] [place] [address] [place] Calcium [Mass/Vol] 8.5 mg/dL Normal 8.5-10.2 [facility] Comment on above: Order Comment: Speci men Type: BLOOD SPECIMENOrdering Facility: [facility] Address: [address] [address] Performed By: #### 2 4321-2, ####[facility] LABORATORYCLIA [id number] [place] [address] [place] Chloride [Moles/Vol] 105 mmol/L Normal 97-105 [facility] Comment on above: Order Comment: Speci men Type: BLOOD SPECIMENOrdering Facility: [facility] Address: [address] [place] [address] Performed By: #### 2 43205-08, ####[facility] LABORATORYCLIA [id number] [place] [address] [place] CO2 [Moles/Vol] 26 mmol/L Normal 22-30 [facility] Comment on above: Order Comment: Speci men Type: BLOOD SPECIMENOrdering Facility: [facility] Address: [address] [place] [address] Performed By: #### 2 4320-06, ####[facility]ITALCLIA [id number] [place] [address] [place] Creatinine [Mass/Vol] 0.56 mg/dL Low 0.73-1.22 [facility] Comment on above: Order Comment: Speci men Type: BLOOD SPECIMENOrdering Facility: [facility] Address: [address] [place] [address] Performed By: #### 2 43205-08, ####[facility]ITALCLIA [id number] [address] [place] GFR/1.73 sq M.predicted MDRD (S/P/Bld) [Vol rate/Area] mL/min/{1.73_m2} Normal [facility] Comment on above: Order Comment: Speci men Type: BLOOD SPECIMENOrdering Facility: [facility] Address: [address] [place] [address] Result Comment: >60e GFR (Estimated GFR) Units [...] By: #### 2 43205-08, ####[facility] LABORATORYCLIA [id number] [place] [address] [place] Glucose [Mass/Vol] 120 mg/dL High 74-99 [facility] Comment on above: Order Comment: Shira feldman Type: BLOOD SPECIMENOrdering Facility: [facility] Address: [address] [place] [address] Result Comment: The [place] [employer] (ADA) provides guidance for cutoff [...] Standards of Medical Care in Diabetes 2016, [place] [employer]. Diabetes Care. 2016.39(Suppl 1). Performed By: #### 2 ####[facility] LABORATORYCLIA [id number] [place] [address] [place] Potassium [Moles/Vol] 4.0 mmol/L Normal 3.7-5.1 [facility] Comment on above: Order Comment: Shira feldman Type: BLOOD SPECIMENOrdering Facility: [facility] Address: [address] [place] [address] Performed By: #### 2 ####[facility] LABORATORYCLIA [id number] [place] [address] [place] Sodium [Moles/Vol] 137 mmol/L Normal 136-144 [facility] Comment on above: Order Comment: Shira feldman Type: BLOOD SPECIMENOrdering Facility: [facility] Address: [address] [place] [address] Performed By: #### 2 ####[facility] LABORATORYCLIA [id number] [place] [address] [place] Urea nitrogen [Mass/Vol] 25 mg/dL High 9-24 [facility] Comment on above: Order Comment: Speci men Type: BLOOD SPECIMENOrdering Facility: [facility] Address: [address] [place] [address] Performed By: #### 2 4321-2, 76241-6 ####[facility] LABORATORYCLIA [id number] [address] [place] CASE MANAGEMon 06-22-2021 CASE MANAGEM Normal [facility] CBC panel Auto (Bld)on 06-22 Erythrocyte distribution width (RBC) [Ratio] 16.0 % High 11.5-15.0 [facility] Comment on above: Order Comment: Speci men Type: BLOOD SPECIMENOrdering Facility: [facility] Address: [address] [place] [address] Performed By: #### 5 8410-2 ####[facility] LABORATORYCLIA [id number] [address] [place] Hematocrit (Bld) [Volume fraction] 30.5 % Low 39.0-51.0 [facility] Comment on above: Order Comment: Speci men Type: BLOOD SPECIMENOrdering Facility: [facility] Address: [address] [place] [address] Performed By: #### 5 8410-2 ####[facility] LABORATORYCLIA [id number] [place] [address] [place] Hemoglobin (Bld) [Mass/Vol] 9.3 g/dL Low 13.0-17.0 [facility] Comment on above: Order Comment: Speci men Type: BLOOD SPECIMENOrdering Facility: [facility] Address: [address] [place] [address] Performed By: #### 5 8410-2 ####[facility] LABORATORYCLIA [id number] [address] [place] MCH (RBC) [Entitic mass] 28.4 pg Normal 26.0-34.0 [facility] Comment on above: Order Comment: Speci men Type: BLOOD SPECIMENOrdering Facility: [facility] Address: [address] [place] [address] Performed By: #### 5 8410-2 ####[facility] LABORATORYCLIA [id number] [address] MCHC (RBC) [Mass/Vol] 30.5 g/dL Normal 30.5-36.0 [facility] Comment on above: Order Comment: Speci men Type: BLOOD SPECIMENOrdering Facility: [facility] Address: [address] [place] [address] Performed By: #### 5 8410-2 ####[facility] LABORATORYCLIA [id number] [address] MCV (RBC) [Entitic vol] 93.3 fL Normal 80.0-100.0 [facility] Comment on above: Order Comment: Speci men Type: BLOOD SPECIMENOrdering Facility: [facility] Address: [address] [place] [address] Performed By: #### 5 8410-2 ####[facility]ORATORYCLIA [id number] [address] Nucleated RBC (Bld) [#/Vol] 10*3/uL Normal <0.01 [facility] Comment on above: Order Comment: Speci men Type: BLOOD SPECIMENOrdering Facility: [facility] Address: [address] [place] [address] Performed By: #### 5 8410-2 ####[facility]ORATORYCLIA [id number] [address] Platelet mean volume (Bld) [Entitic vol] 11.5 fL Normal 9.0-12.7 [facility] Comment on above: Order Comment: Speci men Type: BLOOD SPECIMENOrdering Facility: [facility] Address: [address] [place] [address] Performed By: #### 5 8410-2 ####[facility]ORATORYCLIA [id number] [address] Platelets (Bld) [#/Vol] 346 10*3/uL Normal 150-400 [facility] Comment on above: Order Comment: Speci men Type: BLOOD SPECIMENOrdering Facility: [facility] Address: [address] [place] [address] Performed By: #### 5 8410-2 ####[facility] LABORATORYCLIA [id number] [place] [address] [place] RBC (Bld) [#/Vol] 3.27 10*6/uL Low 4.20-6.00 [facility] Comment on above: Order Comment: Speci men Type: BLOOD SPECIMENOrdering Facility: [facility] Address: [address] [place] [address] Performed By: #### 5 8410-2 ####[facility] LABORATORYCLIA [id number] [address] OF [facility] WBC (Bld) [#/Vol] 9.44 10*3/uL Normal 3.70-11.00 [facility] Comment on above: Order Comment: Speci men Type: BLOOD SPECIMENOrdering Facility: [facility] Address: [address] [place] [address] Performed By: #### 5 8410-2 ####[facility] LABORATORYCLIA [id number] [address] [place] HEMOGLOBIN (HGB)on 2 Hemoglobin (Bld) [Mass/Vol] 9.7 g/dL Low 13.0-17.0 [facility] Comment on above: Order Comment: Speci men Type: BLOOD SPECIMENOrdering Facility: [facility] Address: [address] [place] [address] Performed By: #### H GB ####[facility] LABORATORYCLIA [id number] [address] OF [facility] Magnesium SerPl-mCncon 06-22 Magnesium [Mass/Vol] 2.4 mg/dL High 1.7-2.3 [facility] Comment on above: Order Comment: Speci men Type: BLOOD SPECIMENOrdering Facility: [facility] Address: [address] [place] [address] Performed By: #### 2 4321-2, ####[facility]ORATORYCLIA [id number] [address] OF [facility] THERAPY NTon 06-22-2021 THERAPY NT Normal [facility] THERAPY NT Normal [facility] aPTT PPPon 06-22-2021 aPTT Coag (PPP) [Time] 62.3 s High 23.0-32.4 [facility] Comment on above: Order Comment: Speci men Type: BLOOD SPECIMENOrdering Facility: [facility] Address: [address] [place] [address] Performed By: #### 1 4979-9 ####[facility] LABORATORYCLIA [id number] [address] [place] ALLIED HEALTHon 06-21-2021 ALLIED HEALTH Normal [facility] Basic metabolic 2000 panelon 06-21-2021 Anion gap [Moles/Vol] 8 mmol/L Low 9-18 [facility] Comment on above: Order Comment: Speci men Type: BLOOD SPECIMENOrdering Facility: [facility] Address: [address] [place] [address] Performed By: #### 2 4321-2, ####[facility] LABORATORYCLIA [id number] [place] [address] [place] Calcium [Mass/Vol] 8.2 mg/dL Low 8.5-10.2 [facility] Comment on above: Order Comment: Speci men Type: BLOOD SPECIMENOrdering Facility: [facility] Address: [address] [place] [address] Performed By: #### 2 4321-2, ####[facility] LABORATORYCLIA [id number] [address] [place] Chloride [Moles/Vol] 108 mmol/L High 97-105 [facility] Comment on above: Order Comment: Speci men Type: BLOOD SPECIMENOrdering Facility: [facility] Address: [address] [place] [address] Performed By: #### 2 432-2, ####[facility] LABORATORYCLIA [id number] [address] STATES OF [facility] CO2 [Moles/Vol] 24 mmol/L Normal 22-30 [facility] Comment on above: Order Comment: Speci men Type: BLOOD SPECIMENOrdering Facility: [facility] Address: [address] [place] [address] Performed By: #### 2 4321-2, ####[facility] LABORATORYCLIA [id number] [address] OF [facility] Creatinine [Mass/Vol] 0.61 mg/dL Low 0.73-1.22 [facility] Comment on above: Order Comment: Speci men Type: BLOOD SPECIMENOrdering Facility: [facility] Address: [address] [place] [address] Performed By: #### 2 43205-08, ####[facility]ORATORYCLIA [id number] [address] [place] GFR/1.73 sq M.predicted MDRD (S/P/Bld) [Vol rate/Area] mL/min/{1.73_m2} Normal [facility] Comment on above: Order Comment: Speci men Type: BLOOD SPECIMENOrdering Facility: [facility] Address: [address] [place] [address] Result Comment: >60e GFR (Estimated GFR) Units [...] Performed By: #### 2 432-, ####[facility] LABORATORYCLIA [id number] [place] [address] [place] Glucose [Mass/Vol] 211 mg/dL High 74-99 [facility] Comment on above: Order Comment: [facility] Type: BLOOD SPECIMENOrdering Facility: [facility] Address: [address] [place] [address] Result Comment: The [place] [employer] (ADA) provides guidance for cutoff [...] Standards of Medical Care in Diabetes 2016, [place] [employer]. Diabetes Care. 2016.39(Suppl 1). Performed By: #### 2 43205-08, ####[facility] LABORATORYCLIA [id number] [place] [address] [place] Potassium [Moles/Vol] 4.3 mmol/L Normal 3.7-5.1 [facility] Comment on above: Order Comment: [facility] Type: BLOOD SPECIMENOrdering Facility: [facility] Address: [address] Performed By: #### 2 43205-08, ####[facility] LABORATORYCLIA [id number] [place] [address] [place] Sodium [Moles/Vol] 140 mmol/L Normal 136-144 [facility] Comment on above: Order Comment: Shira feldman Type: BLOOD SPECIMENOrdering Facility: [facility] Address: [address] [address] Performed By: #### 2 1-2, ####[facility] LABORATORYCLIA [id number] [place] [address] [place] [facility] Urea nitrogen [Mass/Vol] 26 mg/dL High 9-24 [facility] Comment on above: Order Comment: Speci men Type: BLOOD SPECIMENOrdering Facility: [facility] Address: [address] [place] [address] Performed By: #### 2 4320-2, ####[facility] LABORATORYCLIA [id number] [address] CBC panel Auto (Bld)on 06-21 Erythrocyte distribution width (RBC) [Ratio] 16.1 % High 11.5-15.0 [facility] Comment on above: Order Comment: Speci men Type: BLOOD SPECIMENOrdering Facility: [facility] Address: [address] [place] [address] Performed By: #### 5 8410-2 ####[facility] LABORATORYCLIA [id number] [address] STATES [facility] Hematocrit (Bld) [Volume fraction] 29.7 % Low 39.0-51.0 [facility] Comment on above: Order Comment: Speci men Type: BLOOD SPECIMENOrdering Facility: [facility] Address: [address] [place] [address] Performed By: #### 5 8410-2 ####[facility] LABORATORYCLIA [id number] [address] STATES OF [facility] Hemoglobin (Bld) [Mass/Vol] 9.2 g/dL Low 13.0-17.0 [facility] Comment on above: Order Comment: Speci men Type: BLOOD SPECIMENOrdering Facility: [facility] Address: [address] [place] [address] Performed By: #### 5 8410-2 ####[facility] LABORATORYCLIA [id number] [address] [place] MCH (RBC) [Entitic mass] 28.8 pg Normal 26.0-34.0 [facility] Comment on above: Order Comment: Speci men Type: BLOOD SPECIMENOrdering Facility: [facility] Address: [address] [place] [address] Performed By: #### 5 8410-2 ####[facility] LABORATORYCLIA [id number] [address] MCHC (RBC) [Mass/Vol] 31.0 g/dL Normal 30.5-36.0 [facility] Comment on above: Order Comment: Speci men Type: BLOOD SPECIMENOrdering Facility: [facility] Address: [address] [place] [address] Performed By: #### 5 8410-2 ####[facility] LABORATORYCLIA [id number] [address] MCV (RBC) [Entitic vol] 93.1 fL Normal 80.0-100.0 [facility] Comment on above: Order Comment: Speci men Type: BLOOD SPECIMENOrdering Facility: [facility] Address: [address] [place] [address] Performed By: #### 5 8410-2 ####[facility] LABORATORYCLIA [id number] [address] Nucleated RBC (Bld) [#/Vol] 10*3/uL Normal <0.01 [facility] Comment on above: Order Comment: Speci men Type: BLOOD SPECIMENOrdering Facility: [facility] Address: [address] [place] [address] Performed By: #### 5 8410-2 ####[facility] LABORATORYCLIA [id number] [address] Platelet mean volume (Bld) [Entitic vol] 11.6 fL Normal 9.0-12.7 [facility] Comment on above: Order Comment: Speci men Type: BLOOD SPECIMENOrdering Facility: [facility] Address: [address] [place] [address] Performed By: #### 5 8410-2 ####[facility] LABORATORYCLIA [id number] [place] [address] [place] Platelets (Bld) [#/Vol] 347 10*3/uL Normal 150-400 [facility] Comment on above: Order Comment: Speci men Type: BLOOD SPECIMENOrdering Facility: [facility] Address: [address] [place] [address] Performed By: #### 5 8410-2 ####[facility] LABORATORYCLIA [id number] [place] [address] [place] RBC (Bld) [#/Vol] 3.19 10*6/uL Low 4.20-6.00 [facility] Comment on above: Order Comment: Speci men Type: BLOOD SPECIMENOrdering Facility: [facility] Address: [address] [place] [address] Performed By: #### 5 8410-2 ####[facility] LABORATORYCLIA [id number] [address] OF [facility] WBC (Bld) [#/Vol] 10.29 10*3/uL Normal 3.70-11.00 [facility] Comment on above: Order Comment: Speci men Type: BLOOD SPECIMENOrdering Facility: [facility] Address: [address] [place] [address] Performed By: #### 5 8410-2 ####[facility] LABORATORYCLIA [id number] [address] [place] CONSULT PROGon 06-21-2021 CONSULT PROG Normal [facility] CONSULT PROG Normal [facility] Magnesium SerPl-mCncon 06-21 Magnesium [Mass/Vol] 2.5 mg/dL High 1.7-2.3 [facility] Comment on above: Order Comment: Speci men Type: BLOOD SPECIMENOrdering Facility: [facility] Address: [address] [place] [address] Performed By: #### 2 4321-2, 62187-1 ####[facility] LABORATORYCLIA [id number] [place] [address] [place] NUTRITIONon 06-21-2021 NUTRITION Normal [facility] XR CHEST 1V FRONTALon 2021 XR CHEST 1V FRONTAL Normal [facility] aPTT PPPon 06-21-2021 aPTT Coag (PPP) [Time] 68.5 s High 23.0-32.4 [facility] Comment on above: Order Comment: Speci men Type: BLOOD SPECIMENOrdering Facility: [facility] Address: [address] [place] [address] Performed By: #### 1 4979-9 ####[facility] LABORATORYCLIA [id number] [address] [place] aPTT Coag (PPP) [Time] 57.8 s High 23.0-32.4 [facility] Comment on above: Order Comment: Speci men Type: BLOOD SPECIMENOrdering Facility: [facility] Address: [address] [place] [address] Performed By: #### 1 4979-9 ####[facility] LABORATORYCLIA [id number] [place] [address] [place] Basic metabolic 2000 panelon 06-20-2021 Anion gap [Moles/Vol] 9 mmol/L Normal 9-18 [facility] Comment on above: Order Comment: Speci men Type: BLOOD SPECIMENOrdering Facility: [facility] Address: [address] [place] [address] Performed By: #### 2 4321-2, ####[facility] LABORATORYCLIA [id number] [place] [address] [place] Calcium [Mass/Vol] 8.3 mg/dL Low 8.5-10.2 [facility] Comment on above: Order Comment: Speci men Type: BLOOD SPECIMENOrdering Facility: [facility] Address: [address] [place] [address] Performed By: #### 2 4321-2, ####[facility] LABORATORYCLIA [id number] [address] [place] Chloride [Moles/Vol] 111 mmol/L High 97-105 [facility] Comment on above: Order Comment: Speci men Type: BLOOD SPECIMENOrdering Facility: [facility] Address: [address] [place] [address] Performed By: #### 2 4321-2, ####[facility] LABORATORYCLIA [id number] [place] [address] [place] CO2 [Moles/Vol] 24 mmol/L Normal 22-30 [facility] Comment on above: Order Comment: Speci men Type: BLOOD SPECIMENOrdering Facility: [facility] Address: [address] [place] [address] Performed By: #### 2 4321-2, ####[facility] LABORATORYCLIA [id number] [address] [place] Creatinine [Mass/Vol] 0.64 mg/dL Low 0.73-1.22 [facility] Comment on above: Order Comment: Speci men Type: BLOOD SPECIMENOrdering Facility: [facility] Address: [address] [place] [address] Performed By: #### 2 4321-2, ####[facility] LABORATORYCLIA [id number] [place] [address] [place] GFR/1.73 sq M.predicted MDRD (S/P/Bld) [Vol rate/Area] mL/min/{1.73_m2} Normal [facility] Comment on above: Order Comment: Speci men Type: BLOOD SPECIMENOrdering Facility: [facility] Address: [address] [place] [address] Result Comment: >60e GFR (Estimated GFR) Units [...] By: #### 2 4320-06, ####[facility] LABORATORYCLIA [id number] [place] [address] [place] Glucose [Mass/Vol] 114 mg/dL High 74-99 [facility] Comment on above: Order Comment: Speci men Type: BLOOD SPECIMENOrdering Facility: [facility] Address: [address] [place], [place] [id number] Result Comment: [employer] ([employer]) provides guidance for cutoff [...] Standards of Medical Care in Diabetes 2016, [place] [employer]. Diabetes Care. 2016.39(Suppl 1). Performed By: #### 2 4320-06, ####[facility]ATORYCLIA [id number] [place] [address] [place] Potassium [Moles/Vol] 4.1 mmol/L Normal 3.7-5.1 [facility] Comment on above: Order Comment: Speci men Type: BLOOD SPECIMENOrdering Facility: [facility] Address: [address] [place] [address] Performed By: #### 2 4320-06, ####[facility]ORATORYCLIA [id number] [place] [address] [place] Sodium [Moles/Vol] 144 mmol/L Normal 136-144 [facility] Comment on above: Order Comment: Speci men Type: BLOOD SPECIMENOrdering Facility: [facility] Address: [address] [place] [address] Performed By: #### 2 4321-2, 67018-1 ####[facility]ATORYCLIA [id number] [address] [place] Urea nitrogen [Mass/Vol] 27 mg/dL High 9-24 [facility] Comment on above: Order Comment: Speci men Type: BLOOD SPECIMENOrdering Facility: [facility] Address: [address] [place] [address] Performed By: #### 2 4321-2, 01075-2 ####[facility]ATORYCLIA [id number] [address] [place] CASE MANAGEMon 06-20-2021 CASE MANAGEM Normal [facility] CBC panel Auto (Bld)on 06-20 Erythrocyte distribution width (RBC) [Ratio] 15.9 % High 11.5-15.0 [facility] Comment on above: Order Comment: Speci men Type: BLOOD SPECIMENOrdering Facility: [facility] Address: [address] [place] [address] Performed By: #### 5 8410-2 ####[facility]ATORYCLIA [id number] [address] [place] Hematocrit (Bld) [Volume fraction] 31.0 % Low 39.0-51.0 [facility] Comment on above: Order Comment: Speci men Type: BLOOD SPECIMENOrdering Facility: [facility] Address: [address] [place] [address] Performed By: #### 5 8410-2 ####[facility]ATORYCLIA [id number] [place] [address] [place] Hemoglobin (Bld) [Mass/Vol] 9.2 g/dL Low 13.0-17.0 [facility] Comment on above: Order Comment: Speci men Type: BLOOD SPECIMENOrdering Facility: [facility] Address: [address] [place] [address] Performed By: #### 5 8410-2 ####[facility]ATORYCLIA [id number] [address] MCH (RBC) [Entitic mass] 27.4 pg Normal 26.0-34.0 [facility] Comment on above: Order Comment: Speci men Type: BLOOD SPECIMENOrdering Facility: [facility] Address: [address] [place] [address] Performed By: #### 5 8410-2 ####[facility]ATORYCLIA [id number] [address] MCHC (RBC) [Mass/Vol] 29.7 g/dL Low 30.5-36.0 [facility] Comment on above: Order Comment: Speci men Type: BLOOD SPECIMENOrdering Facility: [facility] Address: [address] [place] [address] Performed By: #### 5 8410-2 ####[facility]ATORYCLIA [id number] [address] MCV (RBC) [Entitic vol] 92.3 fL Normal 80.0-100.0 [facility] Comment on above: Order Comment: Speci men Type: BLOOD SPECIMENOrdering Facility: [facility] Address: [address] [place] [address] Performed By: #### 5 8410-2 ####[facility]ATORYCLIA [id number] [address] Nucleated RBC (Bld) [#/Vol] 10*3/uL Normal <0.01 [facility] Comment on above: Order Comment: Speci men Type: BLOOD SPECIMENOrdering Facility: [facility] Address: [address] [place] [address] Performed By: #### 5 8410-2 ####[facility]ATORYCLIA [id number] [address] Platelet mean volume (Bld) [Entitic vol] 11.5 fL Normal 9.0-12.7 [facility] Comment on above: Order Comment: Speci men Type: BLOOD SPECIMENOrdering Facility: [facility] Address: [address] [place] [address] Performed By: #### 5 8410-2 ####[facility]ORATORYCLIA [id number] [address] OF [facility] Platelets (Bld) [#/Vol] 343 10*3/uL Normal 150-400 [facility] Comment on above: Order Comment: Speci men Type: BLOOD SPECIMENOrdering Facility: [facility] Address: [address] [place] [address] Performed By: #### 5 8410-2 ####[facility]ATORYCLIA [id number] [address] RBC (Bld) [#/Vol] 3.36 10*6/uL Low 4.20-6.00 [facility] Comment on above: Order Comment: Speci men Type: BLOOD SPECIMENOrdering Facility: [facility] Address: [address] [place] [address] Performed By: #### 5 8410-2 ####[facility]ATORYCLIA [id number] [address] WBC (Bld) [#/Vol] 10.71 10*3/uL Normal 3.70-11.00 [facility] Comment on above: Order Comment: Speci men Type: BLOOD SPECIMENOrdering Facility: [facility] Address: [address] [place] [address] Performed By: #### 5 8410-2 ####[facility]ATORYCLIA [id number] [address] CONSULT PROGon 06-20-2021 CONSULT PROG Normal [facility] HEMOGLOBIN (HGB)on 2 Hemoglobin (Bld) [Mass/Vol] 9.7 g/dL Low 13.0-17.0 [facility] Comment on above: Order Comment: Speci men Type: BLOOD SPECIMENOrdering Facility: [facility] Address: [address] [place] [address] Performed By: #### H GB ####[facility]ATORYCLIA [id number] [address] [place] Magnesium SerPl-mCncon 06-20 Magnesium [Mass/Vol] 2.5 mg/dL High 1.7-2.3 [facility] Comment on above: Order Comment: Speci men Type: BLOOD SPECIMENOrdering Facility: [facility] Address: [address] [place] [address] Performed By: #### 2 4321-2, 54943-2 ####[facility]ORATORYCLIA [id number] [address] OF [facility] NURSING PROGon 06-20-2021 NURSING PROG Normal [facility] THERAPY NTon 06-20-2021 THERAPY NT Normal [facility] aPTT PPPon 06-20-2021 aPTT Coag (PPP) [Time] 93.5 s High 23.0-32.4 [facility] Comment on above: Order Comment: Speci men Type: BLOOD SPECIMENOrdering Facility: [facility] Address: [address] [place] [address] Performed By: #### 1 4979-9 ####[facility]ATORYCLIA [id number] [address] aPTT Coag (PPP) [Time] 47.1 s High 23.0-32.4 [facility] Comment on above: Order Comment: Speci men Type: BLOOD SPECIMENOrdering Facility: [facility] Address: [address] [place] [address] Performed By: #### 1 4979-9 ####[facility]ORATORYCLIA [id number] [address] [place] Basic metabolic 2000 panelon 06-19-2021 Anion gap [Moles/Vol] 7 mmol/L Low 9-18 [facility] Comment on above: Order Comment: Speci men Type: BLOOD SPECIMENOrdering Facility: [facility] Address: [address] [place] [address] Performed By: #### 2 4321-2 ####[facility]ATORYCLIA [id number] [place] [address] [place] Calcium [Mass/Vol] 8.1 mg/dL Low 8.5-10.2 [facility] Comment on above: Order Comment: Speci men Type: BLOOD SPECIMENOrdering Facility: [facility] Address: [address] [place] [address] Performed By: #### 2 4321-2 ####[facility]ATORYCLIA [id number] [place] [address] [place] Chloride [Moles/Vol] 111 mmol/L High 97-105 [facility] Comment on above: Order Comment: Speci men Type: BLOOD SPECIMENOrdering Facility: [facility] Address: [address] [place] [address] Performed By: #### 2 4321-2 ####[facility]ATORYCLIA [id number] [place] [address] [place] CO2 [Moles/Vol] 24 mmol/L Normal 22-30 [facility] Comment on above: Order Comment: Speci men Type: BLOOD SPECIMENOrdering Facility: [facility] Address: [address] [place] [address] Performed By: #### 2 4321-2 ####[facility]ATORYCLIA [id number] [place] [address] [place] Creatinine [Mass/Vol] 0.71 mg/dL Low 0.73-1.22 [facility] Comment on above: Order Comment: Speci men Type: BLOOD SPECIMENOrdering Facility: [facility] Address: [address] [place] [address] Performed By: #### 2 4321-2 ####[facility]ATORYCLIA [id number] [place] [address] [place] GFR/1.73 sq M.predicted MDRD (S/P/Bld) [Vol rate/Area] mL/min/{1.73_m2} Normal [facility] Comment on above: Order Comment: Shira feldman Type: BLOOD SPECIMENOrdering Facility: [facility] Address: [address] [place] [address] Result Comment: >60e GFR (Estimated GFR) Units [...] #### 2 4321-2 ####[facility]ITALCLIA [id number] [place] [address] [place] Glucose [Mass/Vol] 110 mg/dL High 74-99 [facility] Comment on above: Order Comment: Johncara feldman Type: BLOOD SPECIMENOrdering Facility: [facility] Address: [address] [place], [place] [phone] Result Comment: The [place] [employer] (ADA) provides guidance for cutoff [...] Standards of Medical Care in Diabetes 2016, [place] [employer]. Diabetes Care. 2016.39(Suppl 1). Performed By: #### 2 4321-2 ####[facility]ORATORYCLIA [id number] [place] [id number] [place] Potassium [Moles/Vol] 3.7 mmol/L Normal 3.7-5.1 [facility] Comment on above: Order Comment: Speci men Type: BLOOD SPECIMENOrdering Facility: [facility] Address: [address] [place] [address] Performed By: #### 2 4321-2 ####[facility]ATORYCLIA [id number] [address] STATES OF [facility] Sodium [Moles/Vol] 142 mmol/L Normal 136-144 [facility] Comment on above: Order Comment: Speci men Type: BLOOD SPECIMENOrdering Facility: [facility] Address: [address] [place] [address] Performed By: #### 2 4321-2 ####[facility]ATORYCLIA [id number] [address] STATES OF [facility] Urea nitrogen [Mass/Vol] 26 mg/dL High 9-24 [facility] Comment on above: Order Comment: Speci men Type: BLOOD SPECIMENOrdering Facility: [facility] Address: [address] [place] [address] Performed By: #### 2 4321-2 ####[facility]ATORYCLIA [id number] [address] CBC panel Auto (Bld)on 06-19 Erythrocyte distribution width (RBC) [Ratio] 15.7 % High 11.5-15.0 [facility] Comment on above: Order Comment: Speci men Type: BLOOD SPECIMENOrdering Facility: [facility] Address: [address] [place] [address] Performed By: #### 5 8410-2 ####[facility]ATORYCLIA [id number] [address] Hematocrit (Bld) [Volume fraction] 30.9 % Low 39.0-51.0 [facility] Comment on above: Order Comment: Speci men Type: BLOOD SPECIMENOrdering Facility: [facility] Address: [address] [place] [address] Performed By: #### 5 8410-2 ####[facility]ORATORYCLIA [id number] [address] OF [facility] Hemoglobin (Bld) [Mass/Vol] 9.5 g/dL Low 13.0-17.0 [facility] Comment on above: Order Comment: Speci men Type: BLOOD SPECIMENOrdering Facility: [facility] Address: [address] [place] [address] Performed By: #### 5 8410-2 ####[facility]ORATORYCLIA [id number] [address] MCH (RBC) [Entitic mass] 28.4 pg Normal 26.0-34.0 [facility] Comment on above: Order Comment: Speci men Type: BLOOD SPECIMENOrdering Facility: [facility] Address: [address] [place] [address] Performed By: #### 5 8410-2 ####[facility]ORATORYCLIA [id number] [address] MCHC (RBC) [Mass/Vol] 30.7 g/dL Normal 30.5-36.0 [facility] Comment on above: Order Comment: Speci men Type: BLOOD SPECIMENOrdering Facility: [facility] Address: [address] [place] [address] Performed By: #### 5 8410-2 ####[facility]ORATORYCLIA [id number] [address] MCV (RBC) [Entitic vol] 92.2 fL Normal 80.0-100.0 [facility] Comment on above: Order Comment: Speci men Type: BLOOD SPECIMENOrdering Facility: [facility] Address: [address] [place] [address] Performed By: #### 5 8410-2 ####[facility]ORATORYCLIA [id number] [address] OF [facility] Nucleated RBC (Bld) [#/Vol] 10*3/uL Normal <0.01 [facility] Comment on above: Order Comment: Speci men Type: BLOOD SPECIMENOrdering Facility: [facility] Address: [address] [place] [address] Performed By: #### 5 8410-2 ####[facility]ORATORYCLIA [id number] [address] [place] Platelet mean volume (Bld) [Entitic vol] 11.7 fL Normal 9.0-12.7 [facility] Comment on above: Order Comment: Speci men Type: BLOOD SPECIMENOrdering Facility: [facility] Address: [address] [place] [address] Performed By: #### 5 8410-2 ####[facility]ORATORYCLIA [id number] [address] [place] Platelets (Bld) [#/Vol] 323 10*3/uL Normal 150-400 [facility] Comment on above: Order Comment: Speci men Type: BLOOD SPECIMENOrdering Facility: [facility] Address: [address] [place] [address] Performed By: #### 5 8410-2 ####[facility]ORATORYCLIA [id number] [place] [address] [place] RBC (Bld) [#/Vol] 3.35 10*6/uL Low 4.20-6.00 [facility] Comment on above: Order Comment: Speci men Type: BLOOD SPECIMENOrdering Facility: [facility] Address: [address] [place], [place] [address] Performed By: #### 5 8410-2 ####[facility]ATORYCLIA [id number] [address] [place] WBC (Bld) [#/Vol] 9.53 10*3/uL Normal 3.70-11.00 [facility] Comment on above: Order Comment: Speci men Type: BLOOD SPECIMENOrdering Facility: [facility] Address: [address] [place] [address] Performed By: #### 5 8410-2 ####[facility]ORATORYCLIA [id number] [address] [place] HEMOGLOBIN (HGB)on Hemoglobin (Bld) [Mass/Vol] 9.7 g/dL Low 13.0-17.0 [facility] Comment on above: Order Comment: Speci men Type: BLOOD SPECIMENOrdering Facility: [facility] Address: [address] [place] [address] Performed By: #### H GB ####[facility]ORATORYCLIA [id number] [address] [place] Magnesium SerPl-mCncon 06-19 Magnesium [Mass/Vol] 2.5 mg/dL High 1.7-2.3 [facility] Comment on above: Order Comment: Speci men Type: BLOOD SPECIMENOrdering Facility: [facility] Address: [address] [place] [address] Performed By: #### 1 9123-9, 2777-1 ####[facility]ITALCLIA [id number] [address] [place] NURSING PROGon 06-19-2021 NURSING PROG Normal [facility] Phosphate SerPl-mCncon 06-19 Phosphate [Mass/Vol] 2.6 mg/dL Low 2.7-4.8 [facility] Comment on above: Order Comment: Speci men Type: BLOOD SPECIMENOrdering Facility: [facility] Address: [address] [place] [address] Performed By: #### 1 9123-9, 2777-1 ####[facility]CLIA [id number] [address] [place] aPTT PPPon 06-19-2021 aPTT Coag (PPP) [Time] 61.9 s High 23.0-32.4 [facility] Comment on above: Order Comment: Speci men Type: BLOOD SPECIMENOrdering Facility: [facility] Address: [address] [place] [address] Performed By: #### 1 4979-9 ####[facility]ATORYCLIA [id number] [address] [place] aPTT Coag (PPP) [Time] 68.6 s High 23.0-32.4 [facility] Comment on above: Order Comment: Speci men Type: BLOOD SPECIMENOrdering Facility: [facility] Address: [address] [place] [address] Performed By: #### 1 4979-9 ####[facility]ATORYCLIA [id number] [address] [place] aPTT Coag (PPP) [Time] 83.2 s High 23.0-32.4 [facility] Comment on above: Order Comment: Speci men Type: BLOOD SPECIMENOrdering Facility: [facility] Address: [address] [place] [address] Performed By: #### 1 4979-9 ####[facility]ORATORYCLIA [id number] [place] [address] [place] Basic metabolic 2000 panelon 06-18-2021 Anion gap [Moles/Vol] 7 mmol/L Low 9-18 [facility] Comment on above: Order Comment: Speci men Type: BLOOD SPECIMENOrdering Facility: [facility] Address: [address] [place] [address] Performed By: #### 2 4321-2, , 2776-05 ####[facility]ORATORYCLIA [id number] [place] [address] [place] Calcium [Mass/Vol] 8.2 mg/dL Low 8.5-10.2 [facility] Comment on above: Order Comment: Speci men Type: BLOOD SPECIMENOrdering Facility: [facility] Address: [address] [place] [address] Performed By: #### 2 4321-2, , 2776-05 ####[facility]ORATORYCLIA [id number] [address] [place] Chloride [Moles/Vol] 115 mmol/L High 97-105 [facility] Comment on above: Order Comment: Speci men Type: BLOOD SPECIMENOrdering Facility: [facility] Address: [address] [place], [place] [address] Performed By: #### 2 4321-2, , 2776-05 ####[facility]ORATORYCLIA [id number] [place] [address] [place] [facility] CO2 [Moles/Vol] 23 mmol/L Normal 22-30 [facility] Comment on above: Order Comment: Speci men Type: BLOOD SPECIMENOrdering Facility: [facility] Address: [address] [place], [place] [address] Performed By: #### 2 4321-2, , 2776-05 ####[facility]ITALCLIA [id number] [address] [place] Creatinine [Mass/Vol] 0.70 mg/dL Low 0.73-1.22 [facility] Comment on above: Order Comment: Speci men Type: BLOOD SPECIMENOrdering Facility: [facility] Address: [address] [place], [place] [address] Performed By: #### 2 4321-2, , 2776-05 ####[facility]ATORYCLIA [id number] [address] [place] GFR/1.73 sq M.predicted MDRD (S/P/Bld) [Vol rate/Area] mL/min/{1.73_m2} Normal [facility] Comment on above: Order Comment: Speci men Type: BLOOD SPECIMENOrdering Facility: [facility] Address: [address] [place], [place] [address] Result Comment: >60e GFR (Estimated GFR) Units [...] 2 4321-2, , 2776-05 ####[facility]ATORYCLIA [id number] [place] [address] [place] Glucose [Mass/Vol] 105 mg/dL High 74-99 [facility] Comment on above: Order Comment: Shira feldman Type: BLOOD SPECIMENOrdering Facility: [facility] Address: [address] [place] [phone] Result Comment: The [place] [employer] (ADA) provides guidance for cutoff [...] Standards of Medical Care in Diabetes 2016, [place] [employer]. Diabetes Care. 2016.39(Suppl 1). Performed By: #### 2 4321-2, , 2776-05 ####[facility]ORATORYCLIA [id number] [place] [address] [place] Potassium [Moles/Vol] 4.1 mmol/L Normal 3.7-5.1 [facility] Comment on above: Order Comment: Shira feldman Type: BLOOD SPECIMENOrdering Facility: [facility] Address: [address] [place] [address] Performed By: #### 2 4321-2, , 2776-05 ####[facility]ORATORYCLIA [id number] [place] [address] [place] Sodium [Moles/Vol] 145 mmol/L High 136-144 [facility] Comment on above: Order Comment: Speci men Type: BLOOD SPECIMENOrdering Facility: [facility] Address: [address] [place] [address] Performed By: #### 2 4321-2, , 2776-05 ####[facility]ORATORYCLIA [id number] [address] STATES OF [facility] Urea nitrogen [Mass/Vol] 27 mg/dL High 9-24 [facility] Comment on above: Order Comment: Speci men Type: BLOOD SPECIMENOrdering Facility: [facility] Address: [address] [place] [address] Performed By: #### 2 4321-2, , 2776-05 ####[facility]ORATORYCLIA [id number] [address] STATES OF [facility] CALCIUM IONIZED Bon 06-18-19 Calcium.ionized (BldV) [Mass/Vol] 1.22 mmol/L Normal 1.08-1.30 [facility] Comment on above: Order Comment: Speci men Type: BLOOD SPECIMENOrdering Facility: [facility] Address: [address] [place] [address] Performed By: #### I CA ####[facility]ORATORYCLIA [id number] [address] Calcium.ionized adjusted to pH 7.4 (Bld) [Moles/Vol] 1.23 mmol/L Normal 1.08-1.30 [facility] Comment on above: Order Comment: Speci men Type: BLOOD SPECIMENOrdering Facility: [facility] Address: [address] [place] [address] Performed By: #### I CA ####[facility]ATORYCLIA [id number] [address] [place] CBC panel Auto (Bld)on 06-18 Erythrocyte distribution width (RBC) [Ratio] 15.8 % High 11.5-15.0 [facility] Comment on above: Order Comment: Speci men Type: BLOOD SPECIMENOrdering Facility: [facility] Address: [address] [place] [address] Performed By: #### 5 8410-2 ####[facility]ATORYCLIA [id number] [address] Hematocrit (Bld) [Volume fraction] 29.5 % Low 39.0-51.0 [facility] Comment on above: Order Comment: Speci men Type: BLOOD SPECIMENOrdering Facility: [facility] Address: [address] [place] [address] Performed By: #### 5 8410-2 ####[facility] LABORATORYCLIA [id number] [address] OF [facility] Hemoglobin (Bld) [Mass/Vol] 8.8 g/dL Low 13.0-17.0 [facility] Comment on above: Order Comment: Speci men Type: BLOOD SPECIMENOrdering Facility: [facility] Address: [address] [place] [address] Performed By: #### 5 8410-2 ####[facility] LABORATORYCLIA [id number] [address] OF [facility] MCH (RBC) [Entitic mass] 27.4 pg Normal 26.0-34.0 [facility] Comment on above: Order Comment: Speci men Type: BLOOD SPECIMENOrdering Facility: [facility] Address: [address] [place] [address] Performed By: #### 5 8410-2 ####[facility] LABORATORYCLIA [id number] [address] [place] MCHC (RBC) [Mass/Vol] 29.8 g/dL Low 30.5-36.0 [facility] Comment on above: Order Comment: Speci men Type: BLOOD SPECIMENOrdering Facility: [facility] Address: [address] [place] [address] Performed By: #### 5 8410-2 ####[facility] [facility]ATORYCLIA [id number] [address] MCV (RBC) [Entitic vol] 91.9 fL Normal 80.0-100.0 [facility] Comment on above: Order Comment: Speci men Type: BLOOD SPECIMENOrdering Facility: [facility] Address: [address] [address] Performed By: #### 5 8410-2 ####[facility]ATORYCLIA [id number] [place] [address] [place] Nucleated RBC (Bld) [#/Vol] 10*3/uL Normal <0.01 [facility] Comment on above: Order Comment: Speci men Type: BLOOD SPECIMENOrdering Facility: [facility] Address: [address] [place] [address] Performed By: #### 5 8410-2 ####[facility]ORATORYCLIA [id number] [place] [address] [place] Platelet mean volume (Bld) [Entitic vol] 11.9 fL Normal 9.0-12.7 [facility] Comment on above: Order Comment: Speci men Type: BLOOD SPECIMENOrdering Facility: [facility] Address: [address] [place] [address] Performed By: #### 5 8410-2 ####[facility]ATORYCLIA [id number] [place] [address] [place] Platelets (Bld) [#/Vol] 291 10*3/uL Normal 150-400 [facility] Comment on above: Order Comment: Speci men Type: BLOOD SPECIMENOrdering Facility: [facility] Address: [address] Performed By: #### 5 8410-2 ####[facility]ATORYCLIA [id number] [place] [address] [place] RBC (Bld) [#/Vol] 3.21 10*6/uL Low 4.20-6.00 [facility] Comment on above: Order Comment: Speci men Type: BLOOD SPECIMENOrdering Facility: [facility] Address: [address] [place] [address] Performed By: #### 5 8410-2 ####[facility]ATORYCLIA [id number] [address] OF [facility] WBC (Bld) [#/Vol] 10.19 10*3/uL Normal 3.70-11.00 [facility] Comment on above: Order Comment: Speci men Type: BLOOD SPECIMENOrdering Facility: [facility] Address: [address] [place] [address] Performed By: #### 5 8410-2 ####[facility]ORATORYCLIA [id number] [address] [place] FERRITIN BLDon 06-18-2021 Ferritin [Mass/Vol] 600.9 ng/mL High 30.3-565.7 [facility] Comment on above: Order Comment: Speci men Type: BLOOD SPECIMENOrdering Facility: [facility] Address: [address] [place] [address] Performed By: #### S ERFOL, IRON, FERR ####[facility] [id number] [address] FOLATE SERUMon 06-18-2021 Folate [Mass/Vol] 14.3 ng/mL Normal >4.7 [facility] Comment on above: Order Comment: Speci men Type: BLOOD SPECIMENOrdering Facility: [facility] Address: [address] [place] [address] Performed By: #### S ERFOL, IRON, FERR ####[facility]ORYCLIA [id number] [address] Gas and Carbon monoxide pane l (BldV)on 06-18-2021 Base excess Calc (BldV) [Moles/Vol] 0.5 mmol/L Normal 0-2 [facility] Comment on above: Order Comment: Speci men Type: VENOUS BLOOD SPECIMENOrdering Facility: [facility] Address: [address] [place] [address] Performed By: #### 2 4344-4 ####[facility]ATORYCLIA [id number] [address] Body temperature 97.34 [degF] Normal [facility] Comment on above: Order Comment: Speci men Type: VENOUS BLOOD SPECIMENOrdering Facility: [facility] Address: [address] [place] [address] Performed By: #### 2 4344-4 ####[facility]ATORYCLIA [id number] [address] STATES OF [facility] CALCIUM IONIZED, PH CORRECTED 1.26 mmol/L Normal 1.08-1.30 [facility] Comment on above: Order Comment: Speci men Type: VENOUS BLOOD SPECIMENOrdering Facility: [facility] Address: [address] [place] [address] Performed By: #### 2 4344-4 ####[facility]ATORYCLIA [id number] [address] Calcium.ionized (BldV) [Mass/Vol] 1.25 mmol/L Normal 1.08-1.30 [facility] Comment on above: Order Comment: Speci men Type: VENOUS BLOOD SPECIMENOrdering Facility: [facility] Address: [address] [place] [address] Performed By: #### 2 4344-4 ####[facility]ATORYCLIA [id number] [address] [place] Carboxyhemoglobin (BldV) [Mass fraction] 1.5 % Normal 0.0-2.0 [facility] Comment on above: Order Comment: Speci men Type: VENOUS BLOOD SPECIMENOrdering Facility: [facility] Address: [address] [place] [address] Result Comment: Carb oxyhemoglobin Reference Range for Smokers: 2.0-8.0% Performed By: #### 2 4344-4 ####[facility]ATORYCLIA [id number] [address] OF [place] CO2 (BldV) [Partial pressure] 38 mm[Hg] Low 42-55 [facility] Comment on above: Order Comment: Speci men Type: VENOUS BLOOD SPECIMENOrdering Facility: [facility] Address: [address] [address] Performed By: #### 2 4344-4 ####[facility]ATORYCLIA [id number] [address] STATES OF [facility] CO2 [Moles/Vol] 22.9 mmol/L Low 25-29 [facility] Comment on above: Order Comment: Speci men Type: VENOUS BLOOD SPECIMENOrdering Facility: [facility] Address: [address] [place] [address] Performed By: #### 2 4344-4 ####[facility]ATORYCLIA [id number] [address] CO2 adjusted to patient's actual temperature (BldV) [Partial pressure] 37 mmHg Low 42-55 [facility] Comment on above: Order Comment: Speci men Type: VENOUS BLOOD SPECIMENOrdering Facility: [facility] Address: [address] [place] [address] Performed By: #### 2 4344-4 ####[facility]ATORYCLIA [id number] [address] Glucose [Mass/Vol] 103 mg/dL Normal 60-105 [facility] Comment on above: Order Comment: Speci men Type: VENOUS BLOOD SPECIMENOrdering Facility: [facility] Address: [address] [address] Performed By: #### 2 4344-4 ####[facility]ATORYCLIA [id number] [address] [place] HCO3 (Bld) [Moles/Vol] 24.4 mmol/L Normal 24-28 [facility] Comment on above: Order Comment: Speci men Type: VENOUS BLOOD SPECIMENOrdering Facility: [facility] Address: [address] [place] [address] Performed By: #### 2 4344-4 ####[facility]ATORYCLIA [id number] [address] [facility] Hematocrit (Bld) [Volume fraction] 28.7 % Low 39.0-51.0 [facility] Comment on above: Order Comment: Speci men Type: VENOUS BLOOD SPECIMENOrdering Facility: [facility] Address: [address] [place] [address] Performed By: #### 2 4344-4 ####[facility]ATORYCLIA [id number] [address] [place] Hemoglobin (Bld) [Mass/Vol] 9.3 g/dL Low 13.0-17.0 [facility] Comment on above: Order Comment: Speci men Type: VENOUS BLOOD SPECIMENOrdering Facility: [facility] Address: [address] [place] [address] Performed By: #### 2 4344-4 ####[facility]ATORYCLIA [id number] [address] [place] Methemoglobin (Bld) [Mass fraction] % Normal 0.0-1.5 [facility] Comment on above: Order Comment: Speci men Type: VENOUS BLOOD SPECIMENOrdering Facility: [facility] Address: [address] [place] [address] Performed By: #### 2 4344-4 ####[facility]ORYCLIA [id number] [address] [place] O2 THERAPY Ventilator Normal [facility] Comment on above: Order Comment: Speci men Type: VENOUS BLOOD SPECIMENOrdering Facility: [facility] Address: [address] [place] [address] Performed By: #### 2 4344-4 ####[facility]ORYCLIA [id number] [address] Oxygen (BldV) [Partial pressure] 37 mm[Hg] Normal 35-45 [facility] Comment on above: Order Comment: Speci men Type: VENOUS BLOOD SPECIMENOrdering Facility: [facility] Address: [address] [place] [address] Performed By: #### 2 4344-4 ####[facility]ATORYCLIA [id number] [place], [place] [address] [place] [address] [place] Oxygen adjusted to patient's actual temperature (BldV) [Partial pressure] 35.1 mmHg Normal 35-45 [facility] Comment on above: Order Comment: Speci men Type: VENOUS BLOOD SPECIMENOrdering Facility: [facility] Address: [address] [place] [address] Performed By: #### 2 4344-4 ####[facility]ATORYCLIA [id number] [address] [place] Oxygen saturation in Blood 67.1 % Normal 60-85 [facility] Comment on above: Order Comment: Speci men Type: VENOUS BLOOD SPECIMENOrdering Facility: [facility] Address: [address] [place] [address] Performed By: #### 2 4344-4 ####[facility]ATORYCLIA [id number] [address] Oxyhemoglobin (BldV) [Mass fraction] 66 % Normal 60-85 [facility] Comment on above: Order Comment: Speci men Type: VENOUS BLOOD SPECIMENOrdering Facility: [facility] Address: [address] [place] [address] Performed By: #### 2 4344-4 ####[facility]ORYCLIA [id number] [address] [place] pH (BldV) 7.42 [pH] Normal 7.32-7.42 [facility] Comment on above: Order Comment: Speci men Type: VENOUS BLOOD SPECIMENOrdering Facility: [facility] Address: [address] [place] [address] Performed By: #### 2 4344-4 ####[facility]ORYCLIA [id number] [address] pH adjusted to patient's actual temperature (BldV) 7.43 High 7.32-7.42 [facility] Comment on above: Order Comment: Speci men Type: VENOUS BLOOD SPECIMENOrdering Facility: [facility] Address: [address] [place] [address] Performed By: #### 2 4344-4 ####[facility]ORYCLIA [id number] [place] [address] [place] Potassium [Moles/Vol] 4.0 mmol/L Normal 3.5-5.0 [facility] Comment on above: Order Comment: Speci men Type: VENOUS BLOOD SPECIMENOrdering Facility: [facility] Address: [address] [place] [address] Performed By: #### 2 4344-4 ####[facility]ORYCLIA [id number] [address] [place] Sodium [Moles/Vol] 146 mmol/L High 136-144 [facility] Comment on above: Order Comment: Speci men Type: VENOUS BLOOD SPECIMENOrdering Facility: [facility] Address: [address] [place] [address] Performed By: #### 2 4344-4 ####[facility]ORYCLIA [id number] [place] [address] [place] HEMOGLOBIN (HGB)on Hemoglobin (Bld) [Mass/Vol] 9.2 g/dL Low 13.0-17.0 [facility] Comment on above: Order Comment: Speci men Type: BLOOD SPECIMENOrdering Facility: [facility] Address: [address] [place] [address] Performed By: #### H GB ####[facility]ATORYCLIA [id number] [address] [place] IRON + TIBCon 06-18-2021 Iron [Mass/Vol] 27 ug/dL Low 41-186 [facility] Comment on above: Order Comment: Speci men Type: BLOOD SPECIMENOrdering Facility: [facility] Address: [address] [place] [address] Performed By: #### S ERFOL, IRON, FERR ####[facility]ORYCLIA [id number] [address] Iron binding capacity [Mass/Vol] 141 ug/dL Low 232-386 [facility] Comment on above: Order Comment: Speci men Type: BLOOD SPECIMENOrdering Facility: [facility] Address: [address] [place] [address] Performed By: #### S ERFOL, IRON, FERR ####[facility]ATORYCLIA [id number] [address] Iron saturation [Mass fraction] 19 % Normal 15-57 [facility] Comment on above: Order Comment: Speci men Type: BLOOD SPECIMENOrdering Facility: [facility] Address: [address] [place] [address] Performed By: #### S ERFOL, IRON, FERR ####[facility]ATORYCLIA [id number] [address] Magnesium SerPl-mCncon 06-18 Magnesium [Mass/Vol] 2.5 mg/dL High 1.7-2.3 [facility] Comment on above: Order Comment: Speci men Type: BLOOD SPECIMENOrdering Facility: [facility] Address: [address] [place] [address] Performed By: #### 2 4321-2, , 2776- ####[facility]ORYCLIA [id number] [address] NURSING PROGon 06-18-2021 NURSING PROG Normal [facility] Phosphate SerPl-mCncon 06-18 Phosphate [Mass/Vol] 3.0 mg/dL Normal 2.7-4.8 [facility] Comment on above: Order Comment: Speci men Type: BLOOD SPECIMENOrdering Facility: [facility] Address: [address] [place] [address] Performed By: #### 2 4321-2, 56361-4, 2777-1 ####[facility]ORYCLIA [id number] [address] THERAPY NTon 06-18-2021 THERAPY NT Normal [facility] aPTT PPPon 06-18-2021 aPTT Coag (PPP) [Time] 43.0 s High 23.0-32.4 [facility] Comment on above: Order Comment: Speci men Type: BLOOD SPECIMENOrdering Facility: [facility] Address: [address] [place] [address] Performed By: #### 1 4979-9 ####[facility]ATORYCLIA [id number] [address] aPTT Coag (PPP) [Time] 60.6 s High 23.0-32.4 [facility] Comment on above: Order Comment: Speci men Type: BLOOD SPECIMENOrdering Facility: [facility] Address: [address] [place] [address] Performed By: #### 1 4979-9 ####[facility]ITALCLIA [id number] [address] aPTT Coag (PPP) [Time] 46.4 s High 23.0-32.4 [facility] Comment on above: Order Comment: Speci men Type: BLOOD SPECIMENOrdering Facility: [facility] Address: [address] [place] [address] Performed By: #### 1 4979-9 ####[facility]ORYCLIA [id number] [address] [place] Basic metabolic 2000 panelon 06-17-2021 Anion gap [Moles/Vol] 7 mmol/L Low 9-18 [facility] Comment on above: Order Comment: Speci men Type: BLOOD SPECIMENOrdering Facility: [facility] Address: [address] [place] [address] Performed By: #### 2 951-2, 64616-6, 2777-1, 64748-2 ####[facility]ATORYCLIA [id number] [address] OF [facility] Calcium [Mass/Vol] 8.1 mg/dL Low 8.5-10.2 [facility] Comment on above: Order Comment: Speci men Type: BLOOD SPECIMENOrdering Facility: [facility] Address: [address] [place] [address] Performed By: #### 2 951-2, , 2776-05, 12434-8 ####[facility]ORYCLIA [id number] [place] [address] [place] Chloride [Moles/Vol] 113 mmol/L High 97-105 [facility] Comment on above: Order Comment: Speci men Type: BLOOD SPECIMENOrdering Facility: [facility] Address: [address] [place] [address] Performed By: #### 2 951-2, , 2776-05, 09755-0 ####[facility]ORYCLIA [id number] [place] [address] [place] CO2 [Moles/Vol] 25 mmol/L Normal 22-30 [facility] Comment on above: Order Comment: Speci men Type: BLOOD SPECIMENOrdering Facility: [facility] Address: [address] [place] [address] Performed By: #### 2 951-2, , 2776-05, ####[facility]ORYCLIA [id number] [place] [address] [place] Creatinine [Mass/Vol] 0.70 mg/dL Low 0.73-1.22 [facility] Comment on above: Order Comment: Speci men Type: BLOOD SPECIMENOrdering Facility: [facility] Address: [address] [place] [address] Performed By: #### 2 951-2, , 2776-05, 84010-2 ####[facility]ORYCLIA [id number] [place] [address] [place] GFR/1.73 sq M.predicted MDRD (S/P/Bld) [Vol rate/Area] mL/min/{1.73_m2} Normal [facility] Comment on above: Order Comment: Shira feldman Type: BLOOD SPECIMENOrdering Facility: [facility] Address: [address] [place] [address] Result Comment: >60e GFR (Estimated GFR) Units [...] actual GFR. Performed By: #### 2 951-2, 27373-8, 2777-1, 11614-2 ####[facility]ITALCLIA [id number] [address] [id number] [place] Glucose [Mass/Vol] 122 mg/dL High 74-99 [facility] Comment on above: Order Comment: Shira feldman Type: BLOOD SPECIMENOrdering Facility: [facility] Address: [address] [place] [address] Result Comment: The [place] [employer] (ADA) provides guidance for cutoff [...] Standards of Medical Care in Diabetes 2016, [place] [employer]. Diabetes Care. 2016.39(Suppl 1). Performed By: #### 2 951-2, 54820-2, 2777-1, 09439-1 ####[facility]ATORYCLIA [id number] [place] [address] [place] Potassium [Moles/Vol] 3.5 mmol/L Low 3.7-5.1 [facility] Comment on above: Order Comment: Speci men Type: BLOOD SPECIMENOrdering Facility: [facility] Address: [address] [place] [address] Performed By: #### 2 951-2, 14252-4, 2777-1, 62907-4 ####[facility]ORYCLIA [id number] [address] STATES OF [facility] Urea nitrogen [Mass/Vol] 27 mg/dL High 9-24 [facility] Comment on above: Order Comment: Speci men Type: BLOOD SPECIMENOrdering Facility: [facility] Address: [address] [place] [address] Performed By: #### 2 951-2, 85501-3, 2777-1, 05409-9 ####[facility]ATORYCLIA [id number] [address] CASE MANAGEMon 06-17-2021 CASE MANAGEM Normal [facility] CBC panel Auto (Bld)on 06-17 Erythrocyte distribution width (RBC) [Ratio] 15.9 % High 11.5-15.0 [facility] Comment on above: Order Comment: Speci men Type: BLOOD SPECIMENOrdering Facility: [facility] Address: [address] [place] [address] Performed By: #### 5 8410-2 ####[facility]ORYCLIA [id number] [address] Hematocrit (Bld) [Volume fraction] 28.9 % Low 39.0-51.0 [facility] Comment on above: Order Comment: Speci men Type: BLOOD SPECIMENOrdering Facility: [facility] Address: [address] [place] [address] Performed By: #### 5 8410-2 ####[facility]ORYCLIA [id number] [address] STATES OF [facility] Hemoglobin (Bld) [Mass/Vol] 8.8 g/dL Low 13.0-17.0 [facility] Comment on above: Order Comment: Speci men Type: BLOOD SPECIMENOrdering Facility: [facility] Address: [address] [place] [address] Performed By: #### 5 8410-2 ####[facility]ORYCLIA [id number] [address] STATES [facility] MCH (RBC) [Entitic mass] 28.4 pg Normal 26.0-34.0 [facility] Comment on above: Order Comment: Speci men Type: BLOOD SPECIMENOrdering Facility: [facility] Address: [address] [place] [address] Performed By: #### 5 8410-2 ####[facility]ORYCLIA [id number] [address] STATES [facility] MCHC (RBC) [Mass/Vol] 30.4 g/dL Low 30.5-36.0 [facility] Comment on above: Order Comment: Speci men Type: BLOOD SPECIMENOrdering Facility: [facility] Address: [address] [place] [address] Performed By: #### 5 8410-2 ####[facility]ORYCLIA [id number] [address] MCV (RBC) [Entitic vol] 93.2 fL Normal 80.0-100.0 [facility] Comment on above: Order Comment: Speci men Type: BLOOD SPECIMENOrdering Facility: [facility] Address: [address] [place] [address] Performed By: #### 5 8410-2 ####[facility]ORYCLIA [id number] [address] Nucleated RBC (Bld) [#/Vol] 10*3/uL Normal <0.01 [facility] Comment on above: Order Comment: Speci men Type: BLOOD SPECIMENOrdering Facility: [facility] Address: [address] [place] [address] Performed By: #### 5 8410-2 ####[facility]ORYCLIA [id number] [address] Platelet mean volume (Bld) [Entitic vol] 11.9 fL Normal 9.0-12.7 [facility] Comment on above: Order Comment: Speci men Type: BLOOD SPECIMENOrdering Facility: [facility] Address: [address] [place] [address] Performed By: #### 5 8410-2 ####[facility]ORYCLIA [id number] [address] OF [facility] Platelets (Bld) [#/Vol] 257 10*3/uL Normal 150-400 [facility] Comment on above: Order Comment: Speci men Type: BLOOD SPECIMENOrdering Facility: [facility] Address: [address] [place] [address] Performed By: #### 5 8410-2 ####[facility]ORYCLIA [id number] [address] RBC (Bld) [#/Vol] 3.10 10*6/uL Low 4.20-6.00 [facility] Comment on above: Order Comment: Speci men Type: BLOOD SPECIMENOrdering Facility: [facility] Address: [address] [place] [address] Performed By: #### 5 8410-2 ####[facility]ORYCLIA [id number] [address] WBC (Bld) [#/Vol] 10.54 10*3/uL Normal 3.70-11.00 [facility] Comment on above: Order Comment: Speci men Type: BLOOD SPECIMENOrdering Facility: [facility] Address: [address] [place] [address] Performed By: #### 5 8410-2 ####[facility]ORYCLIA [id number] [address] HEMOGLOBIN (HGB)on 2 Hemoglobin (Bld) [Mass/Vol] 8.8 g/dL Low 13.0-17.0 [facility] Comment on above: Order Comment: Speci men Type: BLOOD SPECIMENOrdering Facility: [facility] Address: [address] [place] [address] Performed By: #### H GB ####[facility] LABORATORYCLIA [id number] [place] Magnesium SerPl-mCncon 06-17 Magnesium [Mass/Vol] 2.5 mg/dL High 1.7-2.3 [facility] Comment on above: Order Comment: Speci men Type: BLOOD SPECIMENOrdering Facility: [facility] Address: [address] [place] [address] Performed By: #### 2 951-2, , 2776-05, 84323-7 ####[facility] LABORATORYCLIA [id number] [place] [address] [place] NURSING PROGon 06-17-2021 NURSING PROG Normal [facility] NURSING PROG Normal [facility] NURSING PROG Normal [facility] Phosphate SerPl-mCncon 06-17 Phosphate [Mass/Vol] 1.9 mg/dL Low 2.7-4.8 [facility] Comment on above: Order Comment: Speci men Type: BLOOD SPECIMENOrdering Facility: [facility] Address: [address] [place] [address] Performed By: #### 2 951-2, , 2776-05, 53437-1 ####[facility]ORATORYCLIA [id number] [place] [address] [place] Sodium SerPl-sCncon 06-17-19 22 Sodium [Moles/Vol] 144 mmol/L Normal 136-144 [facility] Comment on above: Order Comment: Speci men Type: BLOOD SPECIMENOrdering Facility: [facility] Address: [address] [place] [address] Performed By: #### 2 951-2 ####[facility]ORATORYCLIA [id number] [address] STATES OF [facility] Sodium [Moles/Vol] 145 mmol/L High 136-144 [facility] Comment on above: Order Comment: Speci men Type: BLOOD SPECIMENOrdering Facility: [facility] Address: [address] [place] [address] Performed By: #### 2 951-2, 44995-2, 2777-1, 11605-2 ####[facility] LABORATORYCLIA [id number] [address] [place] aPTT PPPon 06-17-2021 aPTT Coag (PPP) [Time] 55.8 s High 23.0-32.4 [facility] Comment on above: Order Comment: Speci men Type: BLOOD SPECIMENOrdering Facility: [facility] Address: [address] [place] [address] Performed By: #### 1 4979-9 ####[facility] LABORATORYCLIA [id number] [address] [place] ARTERIAL BLOOD GASESon 06-16 Base excess Calc (Bld) [Moles/Vol] 3 mmol/L High 0-2 [facility] Comment on above: Order Comment: Speci men Type: ARTERIAL BLOOD SPECIMENOrdering Facility: [facility] Address: [address] [place] [address] Performed By: #### A LLBG ####[facility]ORATORYCLIA [id number] [address] [place] Body temperature 99.14 [degF] Normal [facility] Comment on above: Order Comment: Speci men Type: ARTERIAL BLOOD SPECIMENOrdering Facility: [facility] Address: [address] [place] [address] Performed By: #### A LLBG ####[facility] LABORATORYCLIA [id number] [address] [place] CALCIUM IONIZED, PH CORRECTED 1.21 mmol/L Normal 1.08-1.30 [facility] Comment on above: Order Comment: Speci men Type: ARTERIAL BLOOD SPECIMENOrdering Facility: [facility] Address: [address] [place] [address] Performed By: #### A LLBG ####[facility]ORATORYCLIA [id number] [address] [place] Calcium.ionized (BldV) [Mass/Vol] 1.17 mmol/L Normal 1.08-1.30 [facility] Comment on above: Order Comment: Speci men Type: ARTERIAL BLOOD SPECIMENOrdering Facility: [facility] Address: [address] [place] [address] Performed By: #### A LLBG ####[facility]ORATORYCLIA [id number] [address] Carboxyhemoglobin (BldA) [Mass fraction] 1.4 % Normal 0.0-2.0 [facility] Comment on above: Order Comment: Speci men Type: ARTERIAL BLOOD SPECIMENOrdering Facility: [facility] Address: [address] [place] [address] Result Comment: Carb oxyhemoglobin Reference Range for Smokers: 2.0-8.0% Performed By: #### A LLBG ####[facility]ORATORYCLIA [id number] [address] [place] CO2 (Bld) [Partial pressure] 38 mm Hg Normal 36-46 [facility] Comment on above: Order Comment: Speci men Type: ARTERIAL BLOOD SPECIMENOrdering Facility: [facility] Address: [address] [place] [address] Performed By: #### A LLBG ####[facility]ORATORYCLIA [id number] [address] [place] CO2 [Moles/Vol] 24.5 mmol/L Normal 22-28 [facility] Comment on above: Order Comment: Speci men Type: ARTERIAL BLOOD SPECIMENOrdering Facility: [facility] Address: [address] [place] [address] Performed By: #### A LLBG ####[facility]ORATORYCLIA [id number] [address] OF [facility] CO2 adjusted to patient's actual temperature (Bld) [Partial pressure] 38 mmHg Normal 36-46 [facility] Comment on above: Order Comment: Speci men Type: ARTERIAL BLOOD SPECIMENOrdering Facility: [facility] Address: [address] [place] [address] Performed By: #### A LLBG ####[facility]ORATORYCLIA [id number] [address] [place] Glucose [Mass/Vol] 147 mg/dL High 60-105 [facility] Comment on above: Order Comment: Speci men Type: ARTERIAL BLOOD SPECIMENOrdering Facility: [facility] Address: [address] [place] [address] Performed By: #### A LLBG ####[facility]ORATORYCLIA [id number] [address] [place] HCO3 (Bld) [Moles/Vol] 27 mmol/L High 22-26 [facility] Comment on above: Order Comment: Speci men Type: ARTERIAL BLOOD SPECIMENOrdering Facility: [facility] Address: [address] [place] [address] Performed By: #### A LLBG ####[facility]ORATORYCLIA [id number] [address] [place] Hematocrit (Bld) [Volume fraction] 31.8 % Low 39.0-51.0 [facility] Comment on above: Order Comment: Speci men Type: ARTERIAL BLOOD SPECIMENOrdering Facility: [facility] Address: [address] [place] [address] Performed By: #### A LLBG ####[facility]ORATORYCLIA [id number] [address] [place] Hemoglobin (Bld) [Mass/Vol] 10.3 g/dL Low 13.0-17.0 [facility] Comment on above: Order Comment: Speci men Type: ARTERIAL BLOOD SPECIMENOrdering Facility: [facility] Address: [address] [place] [address] Performed By: #### A LLBG ####[facility]ATORYCLIA [id number] [address] Methemoglobin (Bld) [Mass fraction] 1.0 % Normal 0.0-1.5 [facility] Comment on above: Order Comment: Speci men Type: ARTERIAL BLOOD SPECIMENOrdering Facility: [facility] Address: [address] [place] [address] Performed By: #### A LLBG ####[facility]ORYCLIA [id number] [address] O2 THERAPY Ventilator Normal [facility] Comment on above: Order Comment: Speci men Type: ARTERIAL BLOOD SPECIMENOrdering Facility: [facility] Address: [address] [place] [address] Performed By: #### A LLBG ####[facility]ATORYCLIA [id number] [address] Oxygen (Bld) [Partial pressure] 78 mm Hg Low 85-95 [facility] Comment on above: Order Comment: Speci men Type: ARTERIAL BLOOD SPECIMENOrdering Facility: [facility] Address: [address] [place] [address] Performed By: #### A LLBG ####[facility]ORYCLIA [id number] [address] Oxygen adjusted to patient's actual temperature (Bld) [Partial pressure] 79.7 mmHg Low 85-95 [facility] Comment on above: Order Comment: Speci men Type: ARTERIAL BLOOD SPECIMENOrdering Facility: [facility] Address: [address] [place] [address] Performed By: #### A LLBG ####[facility]ORYCLIA [id number] [address] [place] OXYGEN SATURATION, ARTERIAL 96 % Normal 95-98 [facility] Comment on above: Order Comment: Speci men Type: ARTERIAL BLOOD SPECIMENOrdering Facility: [facility] Address: [address] [place] [address] Performed By: #### A LLBG ####[facility]ORATORYCLIA [id number] [address] [place] Oxyhemoglobin (BldA) [Mass fraction] 94 % Low 95-98 [facility] Comment on above: Order Comment: Speci men Type: ARTERIAL BLOOD SPECIMENOrdering Facility: [facility] Address: [address] [place] [address] Performed By: #### A LLBG ####[facility]ORATORYCLIA [id number] [place] [address] [place] pH (Bld) 7.47 [pH] High 7.35-7.45 [facility] Comment on above: Order Comment: Speci men Type: ARTERIAL BLOOD SPECIMENOrdering Facility: [facility] Address: [address] [place] [address] Performed By: #### A LLBG ####[facility]ORATORYCLIA [id number] [address] pH adjusted to patient's actual temperature (Bld) 7.46 High 7.35-7.45 [facility] Comment on above: Order Comment: Speci men Type: ARTERIAL BLOOD SPECIMENOrdering Facility: [facility] Address: [address] [place] [address] Performed By: #### A LLBG ####[facility]ORATORYCLIA [id number] [address] [place] Potassium [Moles/Vol] 3.7 mmol/L Normal 3.5-5.0 [facility] Comment on above: Order Comment: Speci men Type: ARTERIAL BLOOD SPECIMENOrdering Facility: [facility] Address: [address] [place] [address] Performed By: #### A LLBG ####[facility]ORATORYCLIA [id number] [place] [address] [place] Sodium [Moles/Vol] 155 mmol/L High 136-144 [facility] Comment on above: Order Comment: Speci men Type: ARTERIAL BLOOD SPECIMENOrdering Facility: [facility] Address: [address] [place] [address] Performed By: #### A LLBG ####[facility]ORATORYCLIA [id number] [place] [address] [place] Bacteria Spec Resp Culton Bacteria identified Respiratory culture Nom (Unsp spec) CULTURE, RESPIRATORY: Rare Normal respiratory chris present ORGANISM ID: 1 Few Yeast, not cryptococcus neoformans GRAM STAIN: No organisms seen Few Polymorphonuclear leukocytes Few Epithelial cells Abnormal [facility] Comment on above: Performed By: #### 3 2355-0 ####[facility]ORATORYCLIA [id number] [place] [address] [place] Basic metabolic 2000 panelon 06-16-2021 Anion gap [Moles/Vol] 9 mmol/L Normal 9-18 [facility] Comment on above: Order Comment: Speci men Type: BLOOD SPECIMENOrdering Facility: [facility] Address: [address] [place] [address] Performed By: #### 2 4321-2 ####[facility]ORATORYCLIA [id number] [place] [address] [place] Calcium [Mass/Vol] 8.4 mg/dL Low 8.5-10.2 [facility] Comment on above: Order Comment: Speci men Type: BLOOD SPECIMENOrdering Facility: [facility] Address: [address] [place] [address] Performed By: #### 2 4321-2 ####[facility]ORATORYCLIA [id number] [place] [address] [place] Chloride [Moles/Vol] 120 mmol/L High 97-105 [facility] Comment on above: Order Comment: Speci men Type: BLOOD SPECIMENOrdering Facility: [facility] Address: [address] [place] [address] Performed By: #### 2 4321-2 ####[facility]ORATORYCLIA [id number] [place] [address] [place] CO2 [Moles/Vol] 27 mmol/L Normal 22-30 [facility] Comment on above: Order Comment: Speci men Type: BLOOD SPECIMENOrdering Facility: [facility] Address: [address] [place] [address] Performed By: #### 2 4321-2 ####[facility]ORATORYCLIA [id number] [place] [address] [place] Creatinine [Mass/Vol] 0.75 mg/dL Normal 0.73-1.22 [facility] Comment on above: Order Comment: Speci men Type: BLOOD SPECIMENOrdering Facility: [facility] Address: [address] [place] [address] Performed By: #### 2 4321-2 ####[facility] [id number] [place] [address] [place] GFR/1.73 sq M.predicted MDRD (S/P/Bld) [Vol rate/Area] mL/min/{1.73_m2} Normal [facility] Comment on above: Order Comment: Speci francia Type: BLOOD SPECIMENOrdering Facility: [facility] Address: [address] [place] [address] Result Comment: >60e GFR (Estimated GFR) Units [...] By: #### 2 4321-2 ####[facility]ORATORYCLIA [id number] [place] [address] [place] Glucose [Mass/Vol] 160 mg/dL High 74-99 [facility] Comment on above: Order Comment: Speci men Type: BLOOD SPECIMENOrdering Facility: [facility] Address: [address] [place] [address] Result Comment: The [place] [employer] (ADA) provides guidance for cutoff [...] Standards of Medical Care in Diabetes 2016, [place] [employer]. Diabetes Care. 2016.39(Suppl 1). Performed By: #### 2 4321-2 ####[facility]ORATORYCLIA [id number] [place] [address] [place] Potassium [Moles/Vol] 3.1 mmol/L Low 3.7-5.1 [facility] Comment on above: Order Comment: [facility] Type: BLOOD SPECIMENOrdering Facility: [facility] Address: [address] [address] Performed By: #### 2 4321-2 ####[facility]ORATORYCLIA [id number] [place] [address] [place] Sodium [Moles/Vol] 156 mmol/L High 136-144 [facility] Comment on above: Order Comment: Johni men Type: BLOOD SPECIMENOrdering Facility: [facility] Address: [address] [address] Performed By: #### 2 4321-2 ####[facility]ORATORYCLIA [id number] [place] [address] [place] Urea nitrogen [Mass/Vol] 33 mg/dL High 9-24 [facility] Comment on above: Order Comment: [facility] Type: BLOOD SPECIMENOrdering Facility: [facility] Address: [address] [address] Performed By: #### 2 4321-2 ####[facility]ORATORYCLIA [id number] [address] CASE MANAGEMon 06-16-2021 CASE MANAGEM Normal [facility] CBC panel Auto (Bld)on 06-16 Erythrocyte distribution width (RBC) [Ratio] 15.9 % High 11.5-15.0 [facility] Comment on above: Order Comment: Speci men Type: BLOOD SPECIMENOrdering Facility: [facility] Address: [address] [place] [address] Performed By: #### 5 8410-2 ####[facility]ORATORYCLIA [id number] [address] Hematocrit (Bld) [Volume fraction] 34.6 % Low 39.0-51.0 [facility] Comment on above: Order Comment: Speci men Type: BLOOD SPECIMENOrdering Facility: [facility] Address: [address] [place] [address] Performed By: #### 5 8410-2 ####[facility]ORATORYCLIA [id number] [address] Hemoglobin (Bld) [Mass/Vol] 10.2 g/dL Low 13.0-17.0 [facility] Comment on above: Order Comment: Speci men Type: BLOOD SPECIMENOrdering Facility: [facility] Address: [address] [place] [address] Performed By: #### 5 8410-2 ####[facility]ORATORYCLIA [id number] [address] MCH (RBC) [Entitic mass] 28.5 pg Normal 26.0-34.0 [facility] Comment on above: Order Comment: Speci men Type: BLOOD SPECIMENOrdering Facility: [facility] Address: [address] [place] [address] Performed By: #### 5 8410-2 ####[facility]ORATORYCLIA [id number] [place] [address] MCHC (RBC) [Mass/Vol] 29.5 g/dL Low 30.5-36.0 [facility] Comment on above: Order Comment: Speci men Type: BLOOD SPECIMENOrdering Facility: [facility] Address: [address] [place] [address] Performed By: #### 5 8410-2 ####[facility]ORATORYCLIA [id number] [address] [place] MCV (RBC) [Entitic vol] 96.6 fL Normal 80.0-100.0 [facility] Comment on above: Order Comment: Speci men Type: BLOOD SPECIMENOrdering Facility: [facility] Address: [address] [place] [address] Performed By: #### 5 8410-2 ####[facility]ORATORYCLIA [id number] [address] Nucleated RBC (Bld) [#/Vol] 10*3/uL Normal <0.01 [facility] Comment on above: Order Comment: Speci men Type: BLOOD SPECIMENOrdering Facility: [facility] Address: [address] [place] [address] Performed By: #### 5 8410-2 ####[facility]ORATORYCLIA [id number] [address] [place] Platelet mean volume (Bld) [Entitic vol] 11.9 fL Normal 9.0-12.7 [facility] Comment on above: Order Comment: Speci men Type: BLOOD SPECIMENOrdering Facility: [facility] Address: [address] [place] [address] Performed By: #### 5 8410-2 ####[facility]ORATORYCLIA [id number] [address] [place] Platelets (Bld) [#/Vol] 269 10*3/uL Normal 150-400 [facility] Comment on above: Order Comment: Speci men Type: BLOOD SPECIMENOrdering Facility: [facility] Address: [address] [address] Performed By: #### 5 8410-2 ####[facility]ATORYCLIA [id number] [address] [place] RBC (Bld) [#/Vol] 3.58 10*6/uL Low 4.20-6.00 [facility] Comment on above: Order Comment: Speci men Type: BLOOD SPECIMENOrdering Facility: [facility] Address: [address] [place] [address] Performed By: #### 5 8410-2 ####[facility]ORATORYCLIA [id number] [address] STATES OF [facility] WBC (Bld) [#/Vol] 13.11 10*3/uL High 3.70-11.00 [facility] Comment on above: Order Comment: Speci men Type: BLOOD SPECIMENOrdering Facility: [facility] Address: [address] [place] [address] Performed By: #### 5 8410-2 ####[facility]ORATORYCLIA [id number] [address] [place] CONSULTon 06-16-2021 CONSULT Normal [facility] CONSULT PROGon 06-16-2021 CONSULT PROG Normal [facility] CT BRAIN WO IVCONon 06-16-[address] BRAIN WO IVCON Normal [facility] HEMOGLOBIN (HGB)on 2 Hemoglobin (Bld) [Mass/Vol] 8.9 g/dL Low 13.0-17.0 [facility] Comment on above: Order Comment: Speci men Type: BLOOD SPECIMENOrdering Facility: [facility] Address: [address] [place] [address] Performed By: #### H GB ####[facility]ORATORYCLIA [id number] [address] STATES OF [facility] Hemoglobin (Bld) [Mass/Vol] 9.6 g/dL Low 13.0-17.0 [facility] Comment on above: Order Comment: Speci men Type: BLOOD SPECIMENOrdering Facility: [facility] Address: [address] [place] [address] Performed By: #### H GB ####[facility]ORATORYCLIA [id number] [place] [address] [place] Magnesium SerPl-mCncon 06-16 Magnesium [Mass/Vol] 2.7 mg/dL High 1.7-2.3 [facility] Comment on above: Order Comment: Speci men Type: BLOOD SPECIMENOrdering Facility: [facility] Address: [address] [place] [address] Performed By: #### 1 9123-9 ####[facility]ORATORYCLIA [id number] [place] [address] [place] NURSING PROGon 06-16-2021 NURSING PROG Normal [facility] NUTRITIONon 06-16-2021 NUTRITION Normal [facility] Phosphate SerPl-mCncon 06-16 Phosphate [Mass/Vol] 1.4 mg/dL Low 2.7-4.8 [facility] Comment on above: Order Comment: Speci men Type: BLOOD SPECIMENOrdering Facility: [facility] Address: [address] [place] [address] Performed By: #### 2 777-1 ####[facility]ORATORYCLIA [id number] [address] [place] STAPH AUREUS PCRon 2 S. aureus and MRSA panel MEGAN+probe (Nose) Normal Negative [facility] Comment on above: Order Comment: Speci men Type: SWAB OF INTERNAL NOSEOrdering Facility: [facility] Address: [address] [place] [address] Result Comment: Nega tive for Staphylococcus aureus by PCR.Negative for MRSA by PCR Performed By: #### S APCR ####[facility]ORATORYCLIA [id number] [place] [address] [place] Sodium SerPl-sCncon 06-16-19 Sodium [Moles/Vol] 150 mmol/L High 136-144 [facility] Comment on above: Order Comment: Speci men Type: BLOOD SPECIMENOrdering Facility: [facility] Address: [address] [place] [address] Performed By: #### 2 951-2 ####[facility]ORATORYCLIA [id number] [address] [place] Sodium [Moles/Vol] 153 mmol/L High 136-144 [facility] Comment on above: Order Comment: Speci men Type: BLOOD SPECIMENOrdering Facility: [facility] Address: [address] [place] [address] Performed By: #### 2 951-2 ####[facility]ORATORYCLIA [id number] [address] STATES OF [facility] Sodium [Moles/Vol] 158 mmol/L High 136-144 [facility] Comment on above: Order Comment: Speci men Type: BLOOD SPECIMENOrdering Facility: [facility] Address: [address] [place] [address] Performed By: #### 2 951-2 ####[facility]ORATORYCLIA [id number] [address] [place] aPTT PPPon 06-16-2021 aPTT Coag (PPP) [Time] 61.8 s High 23.0-32.4 [facility] Comment on above: Order Comment: Speci men Type: BLOOD SPECIMENOrdering Facility: [facility] Address: [address] [place] [address] Performed By: #### 1 4979-9 ####[facility]ORATORYCLIA [id number] [address] [place] aPTT Coag (PPP) [Time] 57.6 s High 23.0-32.4 [facility] Comment on above: Order Comment: Speci men Type: BLOOD SPECIMENOrdering Facility: [facility] Address: [address] [place] [address] Performed By: #### 1 4979-9 ####[facility]ORYCLIA [id number] [place] [address] [place] ALLIED HEALTHon 06-15-2021 ALLIED HEALTH Normal [facility] ALLIED HEALTH Normal [facility] ALLIED HEALTH Normal [facility] ALLIED HEALTH Normal [facility] ARTERIAL BLOOD GASESon 06-15 Base excess Calc (Bld) [Moles/Vol] 3 mmol/L High 0-2 [facility] Comment on above: Order Comment: Speci men Type: ARTERIAL BLOOD SPECIMENOrdering Facility: [facility] Address: [address] [place] [address] Performed By: #### A LLBG ####[facility]ORATORYCLIA [id number] [address] Body temperature 99.5 [degF] Normal [facility] Comment on above: Order Comment: Speci men Type: ARTERIAL BLOOD SPECIMENOrdering Facility: [facility] Address: [address] [place] [address] Performed By: #### A LLBG ####[facility]ORATORYCLIA [id number] [place] [address] [place] CALCIUM IONIZED, PH CORRECTED 1.34 mmol/L High 1.08-1.30 [facility] Comment on above: Order Comment: Speci men Type: ARTERIAL BLOOD SPECIMENOrdering Facility: [facility] Address: [address] [place] [address] Performed By: #### A LLBG ####[facility]ORATORYCLIA [id number] [place] [address] [place] Calcium.ionized (BldV) [Mass/Vol] 1.29 mmol/L Normal 1.08-1.30 [facility] Comment on above: Order Comment: Speci men Type: ARTERIAL BLOOD SPECIMENOrdering Facility: [facility] Address: [address] [place] [address] Performed By: #### A LLBG ####[facility]ORATORYCLIA [id number] [address] [place] Carboxyhemoglobin (BldA) [Mass fraction] 1.3 % Normal 0.0-2.0 [facility] Comment on above: Order Comment: Speci men Type: ARTERIAL BLOOD SPECIMENOrdering Facility: [facility] Address: [address] [address] Result Comment: Carb oxyhemoglobin Reference Range for Smokers: 2.0-8.0% Performed By: #### A LLBG ####[facility] LABORATORYCLIA [id number] [address] [place] CO2 (Bld) [Partial pressure] 37 mm Hg Normal 36-46 [facility] Comment on above: Order Comment: Speci men Type: ARTERIAL BLOOD SPECIMENOrdering Facility: [facility] Address: [address] [place] [address] Performed By: #### A LLBG ####[facility] LABORATORYCLIA [id number] [address] [place] CO2 [Moles/Vol] 24.6 mmol/L Normal 22-28 [facility] Comment on above: Order Comment: Speci men Type: ARTERIAL BLOOD SPECIMENOrdering Facility: [facility] Address: [address] [place] [address] Performed By: #### A LLBG ####[facility]ATORYCLIA [id number] [address] [place] CO2 adjusted to patient's actual temperature (Bld) [Partial pressure] 38 mmHg Normal 36-46 [facility] Comment on above: Order Comment: Speci men Type: ARTERIAL BLOOD SPECIMENOrdering Facility: [facility] Address: [address] [address] Performed By: #### A LLBG ####[facility]ATORYCLIA [id number] [address] [place] FIO2 100 % Normal [facility] Comment on above: Order Comment: Speci men Type: ARTERIAL BLOOD SPECIMENOrdering Facility: [facility] Address: [address] [address] Performed By: #### A LLBG ####[facility]ATORYCLIA [id number] [address] [place] Glucose [Mass/Vol] 159 mg/dL High 60-105 [facility] Comment on above: Order Comment: Speci men Type: ARTERIAL BLOOD SPECIMENOrdering Facility: [facility] Address: [address] [address] Performed By: #### A LLBG ####[facility] LABORATORYCLIA [id number] [place] [address] [place] HCO3 (Bld) [Moles/Vol] 27 mmol/L High 22-26 [facility] Comment on above: Order Comment: Speci men Type: ARTERIAL BLOOD SPECIMENOrdering Facility: [facility] Address: [address] [place] [address] Performed By: #### A LLBG ####[facility] LABORATORYCLIA [id number] [address] [place] Hematocrit (Bld) [Volume fraction] 31.0 % Low 39.0-51.0 [facility] Comment on above: Order Comment: Speci men Type: ARTERIAL BLOOD SPECIMENOrdering Facility: [facility] Address: [address] [place] [address] Performed By: #### A LLBG ####[facility] LABORATORYCLIA [id number] [address] [place] Hemoglobin (Bld) [Mass/Vol] 10.0 g/dL Low 13.0-17.0 [facility] Comment on above: Order Comment: Speci men Type: ARTERIAL BLOOD SPECIMENOrdering Facility: [facility] Address: [address] [address] Performed By: #### A LLBG ####[facility] LABORATORYCLIA [id number] [address] [place] Methemoglobin (Bld) [Mass fraction] % Normal 0.0-1.5 [facility] Comment on above: Order Comment: Speci men Type: ARTERIAL BLOOD SPECIMENOrdering Facility: [facility] Address: [address] [place], [place] [address] Performed By: #### A LLBG ####[facility]ATORYCLIA [id number] [address] O2 THERAPY Ventilator Normal [facility] Comment on above: Order Comment: Speci men Type: ARTERIAL BLOOD SPECIMENOrdering Facility: [facility] Address: [address] [address] Performed By: #### A LLBG ####[facility]ATORYCLIA [id number] [address] [place] Oxygen (Bld) [Partial pressure] 279 mm Hg High 85-95 [facility] Comment on above: Order Comment: Speci men Type: ARTERIAL BLOOD SPECIMENOrdering Facility: [facility] Address: [address] [address] Performed By: #### A LLBG ####[facility] LABORATORYCLIA [id number] [address] Oxygen adjusted to patient's actual temperature (Bld) [Partial pressure] 281 mmHg High 85-95 [facility] Comment on above: Order Comment: Speci men Type: ARTERIAL BLOOD SPECIMENOrdering Facility: [facility] Address: [facility] [address] Performed By: #### A LLBG ####[facility] LABORATORYCLIA [id number] [address] [place] OXYGEN SATURATION, ARTERIAL 100 % High 95-98 [facility] Comment on above: Order Comment: Speci men Type: ARTERIAL BLOOD SPECIMENOrdering Facility: [facility] Address: [address] [address] Performed By: #### A LLBG ####[facility]ORYCLIA [id number] [address] Oxyhemoglobin (BldA) [Mass fraction] 98 % Normal 95-98 [facility] Comment on above: Order Comment: Speci men Type: ARTERIAL BLOOD SPECIMENOrdering Facility: [facility] Address: [address] [place] [address] Performed By: #### A LLBG ####[facility]ORATORYCLIA [id number] [address] [place] pH (Bld) 7.47 [pH] High 7.35-7.45 [facility] Comment on above: Order Comment: Speci men Type: ARTERIAL BLOOD SPECIMENOrdering Facility: [facility] Address: [address] [place] [address] Performed By: #### A LLBG ####[facility] LABORATORYCLIA [id number] [address] pH adjusted to patient's actual temperature (Bld) 7.46 High 7.35-7.45 [facility] Comment on above: Order Comment: Speci men Type: ARTERIAL BLOOD SPECIMENOrdering Facility: [facility] Address: [address] [place] [address] Performed By: #### A LLBG ####[facility]ORATORYCLIA [id number] [address] [place] Potassium [Moles/Vol] 3.6 mmol/L Normal 3.5-5.0 [facility] Comment on above: Order Comment: Speci men Type: ARTERIAL BLOOD SPECIMENOrdering Facility: [facility] Address: [address] [place] [address] Performed By: #### A LLBG ####[facility]ORATORYCLIA [id number] [address] [place] Sodium [Moles/Vol] 162 mmol/L High 136-144 [facility] Comment on above: Order Comment: Speci men Type: ARTERIAL BLOOD SPECIMENOrdering Facility: [facility] Address: [address] [place] [address] Performed By: #### A LLBG ####[facility] LABORATORYCLIA [id number] [place] [address] [place] Base excess Calc (Bld) [Moles/Vol] 4 mmol/L High 0-2 [facility] Comment on above: Order Comment: Speci men Type: ARTERIAL BLOOD SPECIMENOrdering Facility: [facility] Address: [address] [place] [address] Performed By: #### A LLBG ####[facility]ORATORYCLIA [id number] [address] Body temperature 100.58 [degF] Normal [facility] Comment on above: Order Comment: Speci men Type: ARTERIAL BLOOD SPECIMENOrdering Facility: [facility] Address: [address] [place] [address] Performed By: #### A LLBG ####[facility] LABORATORYCLIA [id number] [address] [place] CALCIUM IONIZED, PH CORRECTED 1.34 mmol/L High 1.08-1.30 [facility] Comment on above: Order Comment: Speci men Type: ARTERIAL BLOOD SPECIMENOrdering Facility: [facility] Address: [address] [place] [address] Performed By: #### A LLBG ####[facility] LABORATORYCLIA [id number] [address] [place] Calcium.ionized (BldV) [Mass/Vol] 1.33 mmol/L High 1.08-1.30 [facility] Comment on above: Order Comment: Speci men Type: ARTERIAL BLOOD SPECIMENOrdering Facility: [facility] Address: [address] [place] [address] Performed By: #### A LLBG ####[facility] LABORATORYCLIA [id number] [address] Carboxyhemoglobin (BldA) [Mass fraction] 1.5 % Normal 0.0-2.0 [facility] Comment on above: Order Comment: Speci men Type: ARTERIAL BLOOD SPECIMENOrdering Facility: [facility] Address: [address] [place] [address] Result Comment: Carb oxyhemoglobin Reference Range for Smokers: 2.0-8.0% Performed By: #### A LLBG ####[facility]ATORYCLIA [id number] [address] CO2 (Bld) [Partial pressure] 46 mm Hg Normal 36-46 [facility] Comment on above: Order Comment: Speci men Type: ARTERIAL BLOOD SPECIMENOrdering Facility: [facility] Address: [address] [place] [address] Performed By: #### A LLBG ####[facility]ATORYCLIA [id number] [address] [place] CO2 [Moles/Vol] 26.4 mmol/L Normal 22-28 [facility] Comment on above: Order Comment: Speci men Type: ARTERIAL BLOOD SPECIMENOrdering Facility: [facility] Address: [address] [place] [address] Performed By: #### A LLBG ####[facility] LABORATORYCLIA [id number] [address] CO2 adjusted to patient's actual temperature (Bld) [Partial pressure] 48 mmHg High 36-46 [facility] Comment on above: Order Comment: Speci men Type: ARTERIAL BLOOD SPECIMENOrdering Facility: [facility] Address: [address] [place] [address] Performed By: #### A LLBG ####[facility] LABORATORYCLIA [id number] [address] [place] FIO2 100 % Normal [facility] Comment on above: Order Comment: Speci men Type: ARTERIAL BLOOD SPECIMENOrdering Facility: [facility] Address: [address] [place] [address] Performed By: #### A LLBG ####[facility]ORATORYCLIA [id number] [address] [place] Glucose [Mass/Vol] 132 mg/dL High 60-105 [facility] Comment on above: Order Comment: Speci men Type: ARTERIAL BLOOD SPECIMENOrdering Facility: [facility] Address: [address] [place] [address] Performed By: #### A LLBG ####[facility]ATORYCLIA [id number] [address] [place] HCO3 (Bld) [Moles/Vol] 29 mmol/L High 22-26 [facility] Comment on above: Order Comment: Speci men Type: ARTERIAL BLOOD SPECIMENOrdering Facility: [facility] Address: [address] [place] [address] Performed By: #### A LLBG ####[facility] LABORATORYCLIA [id number] [address] OF [facility] Hematocrit (Bld) [Volume fraction] 32.3 % Low 39.0-51.0 [facility] Comment on above: Order Comment: Speci men Type: ARTERIAL BLOOD SPECIMENOrdering Facility: [facility] Address: [address] [place] [address] Performed By: #### A LLBG ####[facility]ORATORYCLIA [id number] [address] [place] Hemoglobin (Bld) [Mass/Vol] 10.4 g/dL Low 13.0-17.0 [facility] Comment on above: Order Comment: Speci men Type: ARTERIAL BLOOD SPECIMENOrdering Facility: [facility] Address: [address] [place] [address] Performed By: #### A LLBG ####[facility]ORATORYCLIA [id number] [address] Methemoglobin (Bld) [Mass fraction] % Normal 0.0-1.5 [facility] Comment on above: Order Comment: Speci men Type: ARTERIAL BLOOD SPECIMENOrdering Facility: [facility] Address: [address] [place] [address] Performed By: #### A LLBG ####[facility]ORATORYCLIA [id number] [address] O2 THERAPY NR=Non-Rebreather Mask Normal [facility] Comment on above: Order Comment: Speci men Type: ARTERIAL BLOOD SPECIMENOrdering Facility: [facility] Address: [address] [place] [address] Performed By: #### A LLBG ####[facility]ORATORYCLIA [id number] [address] [place] Oxygen (Bld) [Partial pressure] 130 mm Hg High 85-95 [facility] Comment on above: Order Comment: Speci men Type: ARTERIAL BLOOD SPECIMENOrdering Facility: [facility] Address: [address] [place] [address] Performed By: #### A LLBG ####[facility]ORATORYCLIA [id number] [address] [place] Oxygen adjusted to patient's actual temperature (Bld) [Partial pressure] 136 mmHg High 85-95 [facility] Comment on above: Order Comment: Speci men Type: ARTERIAL BLOOD SPECIMENOrdering Facility: [facility] Address: [address] [place] [address] Performed By: #### A LLBG ####[facility]ORATORYCLIA [id number] [address] [place] OXYGEN SATURATION, ARTERIAL 99 % High 95-98 [facility] Comment on above: Order Comment: Speci men Type: ARTERIAL BLOOD SPECIMENOrdering Facility: [facility] Address: [address] [place] [address] Performed By: #### A LLBG ####[facility]ORATORYCLIA [id number] [address] [place] Oxyhemoglobin (BldA) [Mass fraction] 97 % Normal 95-98 [facility] Comment on above: Order Comment: Speci men Type: ARTERIAL BLOOD SPECIMENOrdering Facility: [facility] Address: [address] [address] Performed By: #### A LLBG ####[facility]ORATORYCLIA [id number] [address] [place] pH (Bld) 7.41 [pH] Normal 7.35-7.45 [facility] Comment on above: Order Comment: Speci men Type: ARTERIAL BLOOD SPECIMENOrdering Facility: [facility] Address: [address] [place] [address] Performed By: #### A LLBG ####[facility]ORATORYCLIA [id number] [address] STATES [facility] pH adjusted to patient's actual temperature (Bld) 7.40 Normal 7.35-7.45 [facility] Comment on above: Order Comment: Speci men Type: ARTERIAL BLOOD SPECIMENOrdering Facility: [facility] Address: [address] [place] [address] Performed By: #### A LLBG ####[facility] LABORATORYCLIA [id number] [address] OF [facility] Potassium [Moles/Vol] 3.8 mmol/L Normal 3.5-5.0 [facility] Comment on above: Order Comment: Speci men Type: ARTERIAL BLOOD SPECIMENOrdering Facility: [facility] Address: [address] [place] [address] Performed By: #### A LLBG ####[facility]ORATORYCLIA [id number] [address] STATES [facility] Sodium [Moles/Vol] 166 mmol/L High 136-144 [facility] Comment on above: Order Comment: Speci men Type: ARTERIAL BLOOD SPECIMENOrdering Facility: [facility] Address: [address] [place] [address] Performed By: #### A LLBG ####[facility] LABORATORYCLIA [id number] [address] [place] Bacteria Bld Culton 06-15-19 22 Bacteria identified Cx Nom (Bld) CULTURE, BLOOD: No growth 5 days Normal [facility] Comment on above: Performed By: #### 6 00-7 ####[facility]ORATORYCLIA [id number] [address] [place] Basic metabolic 2000 panelon 06-15-2021 Anion gap [Moles/Vol] 9 mmol/L Normal 9-18 [facility] Comment on above: Order Comment: Speci men Type: BLOOD SPECIMEN Performed By: #### 2 4321-2, 2776-05, ####[facility]ORATORYCLIA [id number] [place], [place] [address] [place] [address] [place] [facility] Calcium [Mass/Vol] 9.0 mg/dL Normal 8.5-10.2 [facility] Comment on above: Order Comment: Speci men Type: BLOOD SPECIMEN Performed By: #### 2 4321-2, 2776-05, ####[facility]ORATORYCLIA [id number] [place], [place] [address] [place] [address] [place] Chloride [Moles/Vol] 125 mmol/L High 97-105 [facility] Comment on above: Order Comment: Speci men Type: BLOOD SPECIMEN Performed By: #### 2 4321-2, 2776-05, ####[facility]ORATORYCLIA [id number] [address] [place] CO2 [Moles/Vol] 29 mmol/L Normal 22-30 [facility] Comment on above: Order Comment: Speci men Type: BLOOD SPECIMEN Performed By: #### 2 4321-2, 2776-05, ####[facility]ORATORYCLIA [id number] [address] [place] Creatinine [Mass/Vol] 0.81 mg/dL Normal 0.73-1.22 [facility] Comment on above: Order Comment: Speci men Type: BLOOD SPECIMEN Performed By: #### 2 4321-2, 2776-05, ####[facility]ORATORYCLIA [id number] [place] [address] [place] GFR/1.73 sq M.predicted [...] has been calibrated to be traceable to IDND. An eGFR <60 mL/min/1.73m2 for >3 months is consistent with chronic kidney disease. Refer to KDOQI guidelines for clinical interpretation. In patients with unstable renal function, e.g. those with acute kidney injury, the eGFR may not accurately reflect actual GFR. Performed By: #### 2 4321-2, 2776-05, ####[facility]ORATORYCLIA [id number] [place] [address] [place] Glucose [Mass/Vol] 124 mg/dL High 74-99 [facility] Comment on above: Order Comment: Speci men Type: BLOOD SPECIMEN Result Comment: The [place] [employer] (ADA) provides guidance for cutoff [...] Standards of Medical Care in Diabetes 2016, [place] [employer]. Diabetes Care. 2016.39(Suppl 1). Performed By: #### 2 4321-2, 2776-05, ####[facility]ORATORYCLIA [id number] [address] [place] Potassium [Moles/Vol] 3.8 mmol/L Normal 3.7-5.1 [facility] Comment on above: Order Comment: Speci men Type: BLOOD SPECIMEN Performed By: #### 2 4321-2, 2776-05, ####[facility]ORATORYCLIA [id number] [address] [place] Sodium [Moles/Vol] 163 mmol/L High 136-144 [facility] Comment on above: Order Comment: Speci men Type: BLOOD SPECIMEN Performed By: #### 2 4321-2, 2776-1, ####[facility]ORATORYCLIA [id number] [address] Urea nitrogen [Mass/Vol] 35 mg/dL High 9-24 [facility] Comment on above: Order Comment: Speci men Type: BLOOD SPECIMEN Performed By: #### 2 4321-2, 2776-, ####[facility]ORATORYCLIA [id number] [address] CBC panel Auto (Bld)on 06-15 Erythrocyte distribution width (RBC) [Ratio] 16.3 % High 11.5-15.0 [facility] Comment on above: Order Comment: Speci men Type: BLOOD SPECIMENOrdering Facility: [facility] Address: [address] [place] [address] Performed By: #### 5 8410-2 ####[facility]ORATORYCLIA [id number] [address] Hematocrit (Bld) [Volume fraction] 30.0 % Low 39.0-51.0 [facility] Comment on above: Order Comment: Speci men Type: BLOOD SPECIMENOrdering Facility: [facility] Address: [address] [place] [address] Performed By: #### 5 8410-2 ####[facility]ORATORYCLIA [id number] [address] Hemoglobin (Bld) [Mass/Vol] 8.9 g/dL Low 13.0-17.0 [facility] Comment on above: Order Comment: Speci men Type: BLOOD SPECIMENOrdering Facility: [facility] Address: [address] [place] [address] Performed By: #### 5 8410-2 ####[facility]ORATORYCLIA [id number] [address] MCH (RBC) [Entitic mass] 28.7 pg Normal 26.0-34.0 [facility] Comment on above: Order Comment: Speci men Type: BLOOD SPECIMENOrdering Facility: [facility] Address: [address] [place] [address] Performed By: #### 5 8410-2 ####[facility]ORATORYCLIA [id number] [address] MCHC (RBC) [Mass/Vol] 29.7 g/dL Low 30.5-36.0 [facility] Comment on above: Order Comment: Speci men Type: BLOOD SPECIMENOrdering Facility: [facility] Address: [address] [place] [address] Performed By: #### 5 8410-2 ####[facility]ORATORYCLIA [id number] [address] STATES [facility] MCV (RBC) [Entitic vol] 96.8 fL Normal 80.0-100.0 [facility] Comment on above: Order Comment: Speci men Type: BLOOD SPECIMENOrdering Facility: [facility] Address: [address] [place] [address] Performed By: #### 5 8410-2 ####[facility]ORATORYCLIA [id number] [address] Nucleated RBC (Bld) [#/Vol] 10*3/uL Normal <0.01 [facility] Comment on above: Order Comment: Speci men Type: BLOOD SPECIMENOrdering Facility: [facility] Address: [address] [place] [address] Performed By: #### 5 8410-2 ####[facility]ORATORYCLIA [id number] [address] Platelet mean volume (Bld) [Entitic vol] 12.3 fL Normal 9.0-12.7 [facility] Comment on above: Order Comment: Speci men Type: BLOOD SPECIMENOrdering Facility: [facility] Address: [address] [place] [address] Performed By: #### 5 8410-2 ####[facility]ORATORYCLIA [id number] [address] [place] Platelets (Bld) [#/Vol] 226 10*3/uL Normal 150-400 [facility] Comment on above: Order Comment: Speci men Type: BLOOD SPECIMENOrdering Facility: [facility] Address: [address] [place] [address] Performed By: #### 5 8410-2 ####[facility] LABORATORYCLIA [id number] [address] OF [facility] RBC (Bld) [#/Vol] 3.10 10*6/uL Low 4.20-6.00 [facility] Comment on above: Order Comment: Speci men Type: BLOOD SPECIMENOrdering Facility: [facility] Address: [address] [place] [address] Performed By: #### 5 8410-2 ####[facility]ORATORYCLIA [id number] [address] WBC (Bld) [#/Vol] 10.77 10*3/uL Normal 3.70-11.00 [facility] Comment on above: Order Comment: Speci men Type: BLOOD SPECIMENOrdering Facility: [facility] Address: [address] [place] [address] Performed By: #### 5 8410-2 ####[facility]ORATORYCLIA [id number] [address] Erythrocyte distribution width (RBC) [Ratio] 16.2 % High 11.5-15.0 [facility] Comment on above: Order Comment: Speci men Type: BLOOD SPECIMENOrdering Facility: [facility] Address: [address] [place] [address] Performed By: #### 5 8410-2 ####[facility] LABORATORYCLIA [id number] [address] OF [facility] Hematocrit (Bld) [Volume fraction] 34.8 % Low 39.0-51.0 [facility] Comment on above: Order Comment: Speci men Type: BLOOD SPECIMENOrdering Facility: [facility] Address: [address] [place] [address] Performed By: #### 5 8410-2 ####[facility]ORATORYCLIA [id number] [address] STATES OF [facility] Hemoglobin (Bld) [Mass/Vol] 10.0 g/dL Low 13.0-17.0 [facility] Comment on above: Order Comment: Speci men Type: BLOOD SPECIMENOrdering Facility: [facility] Address: [address] [place] [address] Performed By: #### 5 8410-2 ####[facility]ORATORYCLIA [id number] [address] STATES OF [facility] MCH (RBC) [Entitic mass] 27.5 pg Normal 26.0-34.0 [facility] Comment on above: Order Comment: Speci men Type: BLOOD SPECIMENOrdering Facility: [facility] Address: [address] [place] [address] Performed By: #### 5 8410-2 ####[facility] LABORATORYCLIA [id number] OF [facility] MCHC (RBC) [Mass/Vol] 28.7 g/dL Low 30.5-36.0 [facility] Comment on above: Order Comment: Speci men Type: BLOOD SPECIMENOrdering Facility: [facility] Address: [address] [place] [address] Performed By: #### 5 8410-2 ####[facility] LABORATORYCLIA [id number] [address] [address] [place] MCV (RBC) [Entitic vol] 95.6 fL Normal 80.0-100.0 [facility] Comment on above: Order Comment: Speci men Type: BLOOD SPECIMENOrdering Facility: [facility] Address: [address] [place] [address] Performed By: #### 5 8410-2 ####[facility] LABORATORYCLIA [id number] [address] [place] Nucleated RBC (Bld) [#/Vol] 10*3/uL Normal <0.01 [facility] Comment on above: Order Comment: Speci men Type: BLOOD SPECIMENOrdering Facility: [facility] Address: [address] [place] [address] Performed By: #### 5 8410-2 ####[facility] LABORATORYCLIA [id number] [address] [place] Platelet mean volume (Bld) [Entitic vol] 11.9 fL Normal 9.0-12.7 [facility] Comment on above: Order Comment: Speci men Type: BLOOD SPECIMENOrdering Facility: [facility] Address: [address] [place] [address] Performed By: #### 5 8410-2 ####[facility] LABORATORYCLIA [id number] [address] [place] Platelets (Bld) [#/Vol] 246 10*3/uL Normal 150-400 [facility] Comment on above: Order Comment: Speci men Type: BLOOD SPECIMENOrdering Facility: [facility] Address: [address] [place] [address] Performed By: #### 5 8410-2 ####[facility] LABORATORYCLIA [id number] [address] [place] RBC (Bld) [#/Vol] 3.64 10*6/uL Low 4.20-6.00 [facility] Comment on above: Order Comment: Speci men Type: BLOOD SPECIMENOrdering Facility: [facility] Address: [address] [place] [address] Performed By: #### 5 8410-2 ####[facility] LABORATORYCLIA [id number] [address] [place] WBC (Bld) [#/Vol] 11.45 10*3/uL High 3.70-11.00 [facility] Comment on above: Order Comment: Speci men Type: BLOOD SPECIMENOrdering Facility: [facility] Address: [address] [place] [address] Performed By: #### 5 8410-2 ####[facility] LABORATORYCLIA [id number] [address] Erythrocyte distribution width (RBC) [Ratio] 15.9 % High 11.5-15.0 [facility] Comment on above: Order Comment: Speci men Type: BLOOD SPECIMEN Performed By: #### 5 8410-2 ####[facility]ORATORYCLIA [id number] [address] Hematocrit (Bld) [Volume fraction] 35.8 % Low 39.0-51.0 [facility] Comment on above: Order Comment: Speci men Type: BLOOD SPECIMEN Performed By: #### 5 8410-2 ####[facility]ORATORYCLIA [id number] [address] Hemoglobin (Bld) [Mass/Vol] 10.4 g/dL Low 13.0-17.0 [facility] Comment on above: Order Comment: Speci men Type: BLOOD SPECIMEN Performed By: #### 5 8410-2 ####[facility]ATORYCLIA [id number] [address] MCH (RBC) [Entitic mass] 28.0 pg Normal 26.0-34.0 [facility] Comment on above: Order Comment: Speci men Type: BLOOD SPECIMEN Performed By: #### 5 8410-2 ####[facility]ORATORYCLIA [id number] [address] MCHC (RBC) [Mass/Vol] 29.1 g/dL Low 30.5-36.0 [facility] Comment on above: Order Comment: Speci men Type: BLOOD SPECIMEN Performed By: #### 5 8410-2 ####[facility] LABORATORYCLIA [id number] [address] MCV (RBC) [Entitic vol] 96.2 fL Normal 80.0-100.0 [facility] Comment on above: Order Comment: Speci men Type: BLOOD SPECIMEN Performed By: #### 5 8410-2 ####[facility] LABORATORYCLIA [id number] [address] Nucleated RBC (Bld) [#/Vol] 10*3/uL Normal <0.01 [facility] Comment on above: Order Comment: Speci men Type: BLOOD SPECIMEN Performed By: #### 5 8410-2 ####[facility] LABORATORYCLIA [id number] [address] Platelet mean volume (Bld) [Entitic vol] 11.6 fL Normal 9.0-12.7 [facility] Comment on above: Order Comment: Speci men Type: BLOOD SPECIMEN Performed By: #### 5 8410-2 ####[facility] LABORATORYCLIA [id number] [address] Platelets (Bld) [#/Vol] 265 10*3/uL Normal 150-400 [facility] Comment on above: Order Comment: Speci men Type: BLOOD SPECIMEN Performed By: #### 5 8410-2 ####[facility]ORATORYCLIA [id number] [address] RBC (Bld) [#/Vol] 3.72 10*6/uL Low 4.20-6.00 [facility] Comment on above: Order Comment: Speci men Type: BLOOD SPECIMEN Performed By: #### 5 8410-2 ####[facility]ATORYCLIA [id number] [address] WBC (Bld) [#/Vol] 12.24 10*3/uL High 3.70-11.00 [facility] Comment on above: Order Comment: Speci men Type: BLOOD SPECIMEN Performed By: #### 5 8410-2 ####[facility] LABORATORYCLIA [id number] [address] CONSULTon 06-15-2021 CONSULT Normal [facility] [...] Comment: Speci men Type: URINE SPECIMENOrdering Facility: [facility] Address: [address] [place] [address] Performed By: #### U TPR, 60455-9, 53948-2, 38342-5 ####[facility] LABORATORYCLIA [id number] [address] Comprehensive metabolic 2000 panelon 06-15-2021 Albumin [Mass/Vol] 2.8 g/dL Low 3.9-4.9 [facility] Comment on above: Order Comment: Speci men Type: BLOOD SPECIMENOrdering Facility: [facility] Address: [address] [place] [address] Performed By: #### 2 4323-8 ####[facility] LABORATORYCLIA [id number] [address] ALP [Catalytic activity/Vol] 74 U/L Normal 38-113 [facility] Comment on above: Order Comment: Speci men Type: BLOOD SPECIMENOrdering Facility: [facility] Address: [address] [address] Performed By: #### 2 4323-8 ####[facility] LABORATORYCLIA [id number] [address] ALT With P-5'-P [Catalytic activity/Vol] 50 U/L Normal 10-54 [facility] Comment on above: Order Comment: Speci men Type: BLOOD SPECIMENOrdering Facility: [facility] Address: [address] [place] [address] Performed By: #### 2 4323-8 ####[facility]ORATORYCLIA [id number] [place] [address] [place] Anion gap [Moles/Vol] 12 mmol/L Normal 9-18 [facility] Comment on above: Order Comment: Speci men Type: BLOOD SPECIMENOrdering Facility: [facility] Address: [address] [place] [address] Performed By: #### 2 4323-8 ####[facility] LABORATORYCLIA [id number] [place] [address] [place] AST With P-5'-P [Catalytic activity/Vol] 36 U/L Normal 14-40 [facility] Comment on above: Order Comment: Speci men Type: BLOOD SPECIMENOrdering Facility: [facility] Address: [address] [place] [address] Performed By: #### 2 4323-8 ####[facility] LABORATORYCLIA [id number] [address] [place] Bilirubin [Mass/Vol] 0.5 mg/dL Normal 0.2-1.3 [facility] Comment on above: Order Comment: Speci men Type: BLOOD SPECIMENOrdering Facility: [facility] Address: [address] [place] [address] Performed By: #### 2 4323-8 ####[facility] LABORATORYCLIA [id number] [address] [place] Calcium [Mass/Vol] 8.8 mg/dL Normal 8.5-10.2 [facility] Comment on above: Order Comment: Speci men Type: BLOOD SPECIMENOrdering Facility: [facility] Address: [address] [place] [address] Performed By: #### 2 4323-8 ####[facility] LABORATORYCLIA [id number] [place] [address] [place] Chloride [Moles/Vol] 126 mmol/L High 97-105 [facility] Comment on above: Order Comment: Speci men Type: BLOOD SPECIMENOrdering Facility: [facility] Address: [address] [place] [address] Performed By: #### 2 4323-8 ####[facility] LABORATORYCLIA [id number] [address] [place] CO2 [Moles/Vol] 24 mmol/L Normal 22-30 [facility] Comment on above: Order Comment: Speci men Type: BLOOD SPECIMENOrdering Facility: [facility] Address: [address] [place] [address] Performed By: #### 2 4323-8 ####[facility] LABORATORYCLIA [id number] [place] [address] [place] Creatinine [Mass/Vol] 0.84 mg/dL Normal 0.73-1.22 [facility] Comment on above: Order Comment: Speci men Type: BLOOD SPECIMENOrdering Facility: [facility] Address: [address] [place] [address] Performed By: #### 2 4323-8 ####[facility] LABORATORYCLIA [id number] [place] [address] [place] GFR/1.73 sq M.predicted MDRD (S/P/Bld) [Vol rate/Area] mL/min/{1.73_m2} Normal [facility] Comment on above: Order Comment: Speci men Type: BLOOD SPECIMENOrdering Facility: [facility] Address: [address] [place] [address] Result Comment: >60e GFR (Estimated GFR) Units [...] Performed By: #### 2 4323-8 ####[facility] LABORATORYCLIA [id number] [place] [address] [place] Glucose [Mass/Vol] 142 mg/dL High 74-99 [facility] Comment on above: Order Comment: Shira men Type: BLOOD SPECIMENOrdering Facility: [facility] Address: [address] [place] [address] Result Comment: The [place] [employer] (ADA) provides guidance for cutoff [...] Standards of Medical Care in Diabetes 2016, [place] [employer]. Diabetes Care. 2016.39(Suppl 1). Performed By: #### 2 4323-8 ####[facility] LABORATORYCLIA [id number] [place] [address] [place] Potassium [Moles/Vol] 3.8 mmol/L Normal 3.7-5.1 [facility] Comment on above: Order Comment: Shira feldman Type: BLOOD SPECIMENOrdering Facility: [facility] Address: [address] [place] [address] Performed By: #### 2 4323-8 ####[facility] LABORATORYCLIA [id number] [place] [address] [place] Protein [Mass/Vol] 6.1 g/dL Low 6.3-8.0 [facility] Comment on above: Order Comment: Johni men Type: BLOOD SPECIMENOrdering Facility: [facility] Address: [address] [place] [address] Performed By: #### 2 4323-8 ####[facility] LABORATORYCLIA [id number] [place] [address] [place] Sodium [Moles/Vol] 162 mmol/L High 136-144 [facility] Comment on above: Order Comment: Speci men Type: BLOOD SPECIMENOrdering Facility: [facility] Address: [address] [place] [address] Performed By: #### 2 4323-8 ####[facility] LABORATORYCLIA [id number] [place] [address] [place] Urea nitrogen [Mass/Vol] 33 mg/dL High 9-24 [facility] Comment on above: Order Comment: Speci men Type: BLOOD SPECIMENOrdering Facility: [facility] Address: [address] [place] [address] Performed By: #### 2 4323-8 ####[facility] LABORATORYCLIA [id number] [place] [address] [place] Creatinine Unsp time (U) [Ma ss/Vol]on 06-15-2021 Creatinine (U) [Mass/Vol] 87.0 mg/dL Normal 46.8-314.5 [facility] Comment on above: Order Comment: Speci men Type: URINE SPECIMENOrdering Facility: [facility] Address: [address] [place] [address] Performed By: #### U TPR, 64213-2, 15893-9, 30264-5 ####[facility] LABORATORYCLIA [id number] [place] [address] [place] HIGH SENSITIVITY TROPONIN To n 06-15-2021 HIGH SENSITIVITY TAMIKO 23 ng/L High <12 [facility] Comment on above: Order Comment: Speci men Type: BLOOD SPECIMENOrdering Facility: [facility] Address: [address] [place] [address] Result Comment: When assessing risk for acute [...] Performed By: #### P Chelo WHITAKER62-6, HSTNT ####[facility]ITALCLIA [id number] [address] STATES OF [facility] Lactate (Bld) [Moles/Vol]on 06-15-2021 Lactate [Moles/Vol] 0.8 mmol/L Normal 0.5-2.2 [facility] Comment on above: Order Comment: Speci men Type: BLOOD SPECIMENOrdering Facility: [facility] Address: [address] [place] [address] Performed By: #### 3 2693-4 ####[facility]ITALCLIA [id number] [address] [place] [facility] Magnesium [Mass/Vol] 3.0 mg/dL High 1.7-2.3 [facility] Comment on above: Order Comment: Speci men Type: BLOOD SPECIMEN Performed By: #### 2 4321-2, 2777-1, 01019-3 ####[facility]ITALCLIA [id number] [address] [place] NT-proBNP [facility]15 Natriuretic peptide.B prohormone N-Terminal [Mass/Vol] 265 pg/mL High <125 [facility] Comment on above: Order Comment: Speci men Type: BLOOD SPECIMENOrdering Facility: [facility] Address: [address] [place] [address] Performed By: #### P JULIANNE, 74153-6, HSTNT ####[facility] LABORATORYCLIA [id number] [place] [address] [place] Osmolality Uron 06-15-2021 Osmolality (U) [Osmolality] 606 mosm/kg Normal 50-1,200 [facility] Comment on above: Order Comment: Speci men Type: URINE SPECIMENOrdering Facility: [facility] Address: [address] [place] [address] Performed By: #### 2 695-5 ####[facility]ITALCLIA [id number] [address] PROCALCITONIN (LAB)on 2021 Procalcitonin [Mass/Vol] 0.21 ng/mL High <0.09 [facility] Comment on above: Order Comment: Speci men Type: BLOOD SPECIMENOrdering Facility: [facility] Address: [address] [place] [address] Result Comment: For a guided interpretation of test results, please visit the Change in Procalcitonin Calculator, [email or web address]. Performed By: #### P JULIANNE, 2951-2 ####[facility] LABORATORYIA [id number] [address] Procalcitonin [Mass/Vol] 0.17 ng/mL High <0.09 [facility] Comment on above: Order Comment: Speci men Type: BLOOD SPECIMENOrdering Facility: [facility] Address: [address] [place] [address] Result Comment: For a guided interpretation of test results, please visit the Change in Procalcitonin Calculator, [email or web address]. Performed By: #### P JULIANNE, 84228-8, HSTNT ####[facility]IA [id number] [address] PROTEIN RANDOM URon 06-15-19 22 Protein (U) [Mass/Vol] 175 mg/dL High 0-20 [facility] Comment on above: Order Comment: Speci men Type: URINE SPECIMENOrdering Facility: [facility] Address: [address] [place] [address] Performed By: #### U TPR, 44963-1, 56103-3, 47458-4 ####[facility] LABORATORYCLIA [id number] [address] PT panel Coag (PPP)on 2021 INR Coag (PPP) [Relative time] 1.1 {INR} Normal <1.4 [facility] Comment on above: Order Comment: Speci men Type: BLOOD SPECIMENOrdering Facility: [facility] Address: [address] [place] [address] Result Comment: Yris min K Antagonist (VKA) Therapeutic Range: INR 2 to 3 (Target INR of 2.5)Note: For patients treated with VKA drugs, such as warfarin, the [place] [employer] 2012 Guideline recommends [...] al. Chest 2012, 141:7S-47SNishmariangel RA, et al. [facility] 2017, 70: 252-289 Performed By: #### 3 4528-0, 76361-9 ####[facility] LABORATORYCLIA [id number] [place] [address] [place] PT Coag (PPP) [Time] 11.4 s Normal <13.1 [facility] Comment on above: Order Comment: Shira feldman Type: BLOOD SPECIMENOrdering Facility: [facility] Address: [address] [place], [place] [id number] Performed By: #### 3 4528-0, 65070-2 ####[facility]ORATORYCLIA [id number] [place] [address] [place] Phosphate SerPl-mCncon 06-15 Phosphate [Mass/Vol] 2.6 mg/dL Low 2.7-4.8 [facility] Comment on above: Order Comment: Shira feldman Type: BLOOD SPECIMEN Performed By: #### 2 4321-2, 2777-1, 50448-6 ####[facility] LABORATORYCLIA [id number] [address] [place] Sodium ?Tm Ur-sCncon 022 Sodium Unsp time (U) [Moles/Vol] 34 mmol/L Normal 14-216 [facility] Comment on above: Order Comment: Speci men Type: URINE SPECIMENOrdering Facility: [facility] Address: [address] [place] [address] Performed By: #### U TPR, 68907-5, 59385-7, 58063-4 ####[facility]ORATORYCLIA [id number] [address] [place] Sodium SerPl-sCncon 06-15-19 22 Sodium [Moles/Vol] 159 mmol/L High 136-144 [facility] Comment on above: Order Comment: Speci men Type: BLOOD SPECIMENOrdering Facility: [facility] Address: [address] [place] [address] Performed By: #### P JULIANNE, 2951-2 ####[facility]ORATORYCLIA [id number] [address] THERAPY NTon 06-15-2021 THERAPY NT Normal [facility] Urinalysis complete panel (U )on 06-15-2021 Bacteria LM.HPF (Urine sed) [#/Area] None Seen Normal None Seen [facility] Comment on above: Order Comment: Speci men Type: URINE SPECIMENOrdering Facility: [facility] Address: [address] [place] [address] Performed By: #### 2 4356-8 ####[facility]ORATORYCLIA [id number] [address] [place] Bilirubin Ql (U) Negative Normal Negative [facility] Comment on above: Order Comment: Speci men Type: URINE SPECIMENOrdering Facility: [facility] Address: [address] [place] [address] Performed By: #### 2 4356-8 ####[facility]ORATORYCLIA [id number] [address] [place] Clarity (Unsp spec) Cloudy Abnormal Clear [facility] Comment on above: Order Comment: Speci men Type: URINE SPECIMENOrdering Facility: [facility] Address: [address] [place] [address] Performed By: #### 2 4356-8 ####[facility] LABORATORYCLIA [id number] [address] Color (U) Yellow Normal Yellow [facility] Comment on above: Order Comment: Speci men Type: URINE SPECIMENOrdering Facility: [facility] Address: [address] [place] [address] Performed By: #### 2 4356-8 ####[facility]ORATORYCLIA [id number] [address] Epithelial cells LM.HPF (Urine sed) [#/Area] 7.1 /[HPF] Normal [facility] Comment on above: Order Comment: Speci men Type: URINE SPECIMENOrdering Facility: [facility] Address: [address] [place] [address] Performed By: #### 2 4356-8 ####[facility] LABORATORYCLIA [id number] [address] Glucose Test strip (U) [Mass/Vol] Negative Normal Negative [facility] Comment on above: Order Comment: Speci men Type: URINE SPECIMENOrdering Facility: [facility] Address: [address] [place] [address] Performed By: #### 2 4356-8 ####[facility]ORATORYCLIA [id number] [address] Granular casts (Urine sed) [#/Area] /[LPF] Abnormal 0 /LPF [facility] Comment on above: Order Comment: Speci men Type: URINE SPECIMENOrdering Facility: [facility] Address: [address] [place] [address] Performed By: #### 2 4356-8 ####[facility]ORATORYCLIA [id number] [address] Hemoglobin Ql (U) Moderate Abnormal Negative [facility] Comment on above: Order Comment: Speci men Type: URINE SPECIMENOrdering Facility: [facility] Address: [address] [place] [address] Performed By: #### 2 4356-8 ####[facility] LABORATORYCLIA [id number] [address] OF [facility] Hyaline casts (Urine sed) [#/Area] /[LPF] Abnormal 0 /LPF [facility] Comment on above: Order Comment: Speci men Type: URINE SPECIMENOrdering Facility: [facility] Address: [address] [place] [address] Performed By: #### 2 4356-8 ####[facility]ORATORYCLIA [id number] [address] Ketones Ql (U) Negative Normal Negative [facility] Comment on above: Order Comment: Speci men Type: URINE SPECIMENOrdering Facility: [facility] Address: [address] [place] [address] Performed By: #### 2 4356-8 ####[facility]ORATORYCLIA [id number] [address] Leukocyte esterase Test strip Ql (U) Negative Normal Negative [facility] Comment on above: Order Comment: Speci men Type: URINE SPECIMENOrdering Facility: [facility] Address: [address] [place] [address] Performed By: #### 2 4356-8 ####[facility]ATORYCLIA [id number] [address] Nitrite Ql (U) Negative Normal Negative [facility] Comment on above: Order Comment: Speci men Type: URINE SPECIMENOrdering Facility: [facility] Address: [address] [place] [address] Performed By: #### 2 4356-8 ####[facility]ORATORYCLIA [id number] [address] [place] pH (U) 6.0 [pH] Normal 5.0-8.0 [facility] Comment on above: Order Comment: Speci men Type: URINE SPECIMENOrdering Facility: [facility] Address: [address] [place] [address] Performed By: #### 2 4356-8 ####[facility]ATORYCLIA [id number] [address] Protein (U) [Mass/Vol] 100 mg/dL Abnormal Negative [facility] Comment on above: Order Comment: Speci men Type: URINE SPECIMENOrdering Facility: [facility] Address: [address] [place] [address] Performed By: #### 2 4356-8 ####[facility]ORATORYCLIA [id number] [address] [place] RBC LM.HPF (Urine sed) [#/Area] 0-3 /HPF Normal 0-3 /HPF [facility] Comment on above: Order Comment: Speci men Type: URINE SPECIMENOrdering Facility: [facility] Address: [address] [place] [address] Performed By: #### 2 4356-8 ####[facility]ORATORYCLIA [id number] [address] Specific gravity (U) [Rel density] 1.024 Normal 1.005-1.030 [facility] Comment on above: Order Comment: Speci men Type: URINE SPECIMENOrdering Facility: [facility] Address: [address] [place] [address] Performed By: #### 2 4356-8 ####[facility] LABORATORYCLIA [id number] [address] Urobilinogen Ql (U) 0.2 EU/dL Normal 0.2-1.0 EU/dL [facility] Comment on above: Order Comment: Speci men Type: URINE SPECIMENOrdering Facility: [facility] Address: [address] [place] [address] Performed By: #### 2 4356-8 ####[facility] LABORATORYCLIA [id number] [place] [address] [place] WBC LM.HPF (Urine sed) [#/Area] 0-5 /HPF Normal 0-5 /HPF [facility] Comment on above: Order Comment: Speci men Type: URINE SPECIMENOrdering Facility: [facility] Address: [address] [place] [address] Performed By: #### 2 4356-8 ####[facility] LABORATORYCLIA [id number] [place] XR CHEST 1V FRONTALon 2021 XR CHEST 1V FRONTAL Normal [facility] XR CHEST 1V FRONTAL PORTon 0 06-15-2021 XR CHEST 1V FRONTAL PORT Normal [facility] XR CHEST 1V FRONTAL PORT Normal [facility] aPTT PPPon 06-15-2021 aPTT Coag (PPP) [Time] 30.9 s Normal 23.0-32.4 [facility] Comment on above: Order Comment: Speci men Type: BLOOD SPECIMENOrdering Facility: [facility] Address: [address] [place] [address] Performed By: #### 3 4528-0, 00401-9 ####[facility]ATORYCLIA [id number] [place] [address] [place] Basic metabolic 2000 panelon 06-14-2021 Anion gap [Moles/Vol] 8 mmol/L Low 9-18 [facility] Comment on above: Order Comment: Speci men Type: BLOOD SPECIMEN Performed By: #### 2 4321-2, 2776-1, ####[facility]ATORYCLIA [id number] [place] [address] [place] Calcium [Mass/Vol] 8.9 mg/dL Normal 8.5-10.2 [facility] Comment on above: Order Comment: Speci men Type: BLOOD SPECIMEN Performed By: #### 2 4321-2, 2777-1, ####[facility]ATORYCLIA [id number] [place], [place] [address] [place] [address] [place] Chloride [Moles/Vol] 121 mmol/L High 97-105 [facility] Comment on above: Order Comment: Speci men Type: BLOOD SPECIMEN Performed By: #### 2 4321-2, 2776-05, ####[facility]ATORYCLIA [id number] [place] [address] [place] CO2 [Moles/Vol] 30 mmol/L Normal 22-30 [facility] Comment on above: Order Comment: Speci men Type: BLOOD SPECIMEN Performed By: #### 2 4321-2, 2776-05, ####[facility] [id number] [address] STATES OF [facility] Creatinine [Mass/Vol] 0.78 mg/dL Normal 0.73-1.22 [facility] Comment on above: Order Comment: Speci men Type: BLOOD SPECIMEN Performed By: #### 2 4321-2, 2776-05, ####[facility]ATORYCLIA [id number] [place] [address] [place] GFR/1.73 sq M.predicted [...] By: #### 2 4321-2, 2777, ####[facility]ATORYCLIA [id number] [place] [address] [place] Glucose [Mass/Vol] 132 mg/dL High 74-99 [facility] Comment on above: Order Comment: Speci men Type: BLOOD SPECIMEN Result Comment: The [place] [employer] (ADA) provides guidance for cutoff [...] Standards of Medical Care in Diabetes 2016, [place] [employer]. Diabetes Care. 2016.39(Suppl 1). Performed By: #### 2 4321-2, 2776-05, ####[facility]ATORYCLIA [id number] [address] [place] Potassium [Moles/Vol] 3.7 mmol/L Normal 3.7-5.1 [facility] Comment on above: Order Comment: Speci men Type: BLOOD SPECIMEN Performed By: #### 2 4321-2, 2776-05, ####[facility]ORYCLIA [id number] [address] [place] Sodium [Moles/Vol] 159 mmol/L High 136-144 [facility] Comment on above: Order Comment: Speci men Type: BLOOD SPECIMEN Performed By: #### 2 4321-2, 2776-05, ####[facility]ORYCLIA [id number] [place] [address] [place] Urea nitrogen [Mass/Vol] 35 mg/dL High 9-24 [facility] Comment on above: Order Comment: Speci men Type: BLOOD SPECIMEN Performed By: #### 2 4321-2, 2776-05, ####[facility]ATORYCLIA [id number] [address] CASE MANAGEMon 06-14-2021 CASE MANAGEM Normal [facility] CBC panel Auto (Bld)on 06-14 Erythrocyte distribution width (RBC) [Ratio] 16.2 % High 11.5-15.0 [facility] Comment on above: Order Comment: Speci men Type: BLOOD SPECIMEN Performed By: #### 5 8410-2 ####[facility]ATORYCLIA [id number] [address] Hematocrit (Bld) [Volume fraction] 35.2 % Low 39.0-51.0 [facility] Comment on above: Order Comment: Speci men Type: BLOOD SPECIMEN Performed By: #### 5 8410-2 ####[facility]ATORYCLIA [id number] [address] Hemoglobin (Bld) [Mass/Vol] 10.1 g/dL Low 13.0-17.0 [facility] Comment on above: Order Comment: Speci men Type: BLOOD SPECIMEN Performed By: #### 5 8410-2 ####[facility]ATORYCLIA [id number] [address] MCH (RBC) [Entitic mass] 27.2 pg Normal 26.0-34.0 [facility] Comment on above: Order Comment: Speci men Type: BLOOD SPECIMEN Performed By: #### 5 8410-2 ####[facility]ORYCLIA [id number] [address] MCHC (RBC) [Mass/Vol] 28.7 g/dL Low 30.5-36.0 [facility] Comment on above: Order Comment: Speci men Type: BLOOD SPECIMEN Performed By: #### 5 8410-2 ####[facility]ORYCLIA [id number] [address] MCV (RBC) [Entitic vol] 94.6 fL Normal 80.0-100.0 [facility] Comment on above: Order Comment: Speci men Type: BLOOD SPECIMEN Performed By: #### 5 8410-2 ####[facility]ATORYCLIA [id number] [address] Nucleated RBC (Bld) [#/Vol] 10*3/uL Normal <0.01 [facility] Comment on above: Order Comment: Speci men Type: BLOOD SPECIMEN Performed By: #### 5 8410-2 ####[facility]ATORYCLIA [id number] [address] Platelet mean volume (Bld) [Entitic vol] 11.0 fL Normal 9.0-12.7 [facility] Comment on above: Order Comment: Speci men Type: BLOOD SPECIMEN Performed By: #### 5 8410-2 ####[facility]ATORYCLIA [id number] [address] Platelets (Bld) [#/Vol] 287 10*3/uL Normal 150-400 [facility] Comment on above: Order Comment: Speci men Type: BLOOD SPECIMEN Performed By: #### 5 8410-2 ####[facility]ORYCLIA [id number] [address] RBC (Bld) [#/Vol] 3.72 10*6/uL Low 4.20-6.00 [facility] Comment on above: Order Comment: Speci men Type: BLOOD SPECIMEN Performed By: #### 5 8410-2 ####[facility]ATORYCLIA [id number] [address] WBC (Bld) [#/Vol] 12.23 10*3/uL High 3.70-11.00 [facility] Comment on above: Order Comment: Speci men Type: BLOOD SPECIMEN Performed By: #### 5 8410-2 ####[facility]ORYCLIA [id number] [address] Comprehensive metabolic 2000 panelon 06-14-2021 Albumin [Mass/Vol] 3.1 g/dL Low 3.9-4.9 [facility] Comment on above: Order Comment: Speci men Type: BLOOD SPECIMEN Performed By: #### 2 4323-8, HSTNT, 2776-05, ####[facility]ATORYCLIA [id number] [place], [place] [address] [place] [address] ALP [Catalytic activity/Vol] 72 U/L Normal 38-113 [facility] Comment on above: Order Comment: Speci men Type: BLOOD SPECIMEN Performed By: #### 2 4323-8, HSTNT, 2776-05, ####[facility] LABORATORYCLIA [id number] [address] ALT With P-5'-P [Catalytic activity/Vol] 57 U/L High 10-54 [facility] Comment on above: Order Comment: Speci men Type: BLOOD SPECIMEN Performed By: #### 2 4323-8, HSTNT, 2776-05, ####[facility]ORYCLIA [id number] [address] Anion gap [Moles/Vol] 9 mmol/L Normal 9-18 [facility] Comment on above: Order Comment: Speci men Type: BLOOD SPECIMEN Performed By: #### 2 4323-8, HSTNT, 2776-05, ####[facility]ORYCLIA [id number] [place], [place] [id number] [place] [address] AST With P-5'-P [Catalytic activity/Vol] 33 U/L Normal 14-40 [facility] Comment on above: Order Comment: Speci men Type: BLOOD SPECIMEN Performed By: #### 2 4323-8, HSTNT, 2776-05, ####[facility]ORYCLIA [id number] [address] Bilirubin [Mass/Vol] 0.5 mg/dL Normal 0.2-1.3 [facility] Comment on above: Order Comment: Speci men Type: BLOOD SPECIMEN Performed By: #### 2 4323-8, HSTNT, 2776-05, ####[facility]ATORYCLIA [id number] [place] [address] [place] Calcium [Mass/Vol] 8.8 mg/dL Normal 8.5-10.2 [facility] Comment on above: Order Comment: Speci men Type: BLOOD SPECIMEN Performed By: #### 2 4323-8, HSTNT, 2776-05, ####[facility]ATORYCLIA [id number] [address] [place] Chloride [Moles/Vol] 124 mmol/L High 97-105 [facility] Comment on above: Order Comment: Speci men Type: BLOOD SPECIMEN Performed By: #### 2 4323-8, HSTNT, 2776-05, ####[facility]ATORYCLIA [id number] [address] [place] CO2 [Moles/Vol] 29 mmol/L Normal 22-30 [facility] Comment on above: Order Comment: Speci men Type: BLOOD SPECIMEN Performed By: #### 2 4323-8, HSTNT, 2776-05, ####[facility]ATORYCLIA [id number] [address] [place] Creatinine [Mass/Vol] 0.73 mg/dL Normal 0.73-1.22 [facility] Comment on above: Order Comment: Speci men Type: BLOOD SPECIMEN Performed By: #### 2 4323-8, HSTNT, 2776-05, ####[facility]ORATORYCLIA [id number] [place] [address] [place] GFR/1.73 sq M.predicted [...] By: #### 2 4323-8, HSTNT, ####[facility]ATORYCLIA [id number] [place] [address] [place] Glucose [Mass/Vol] 137 mg/dL High 74-99 [facility] Comment on above: Order Comment: Speci men Type: BLOOD SPECIMEN Result Comment: The [place] [employer] (ADA) provides guidance for cutoff [...] Standards of Medical Care in Diabetes 2016, [place] [employer]. Diabetes Care. 2016.39(Suppl 1). Performed By: #### 2 4323-8, HSTNT, ####[facility]ORATORYCLIA [id number] [place] [address] [place] Potassium [Moles/Vol] 3.6 mmol/L Low 3.7-5.1 [facility] Comment on above: Order Comment: Speci men Type: BLOOD SPECIMEN Performed By: #### 2 4323-8, HSTNT, ####[facility]ATORYCLIA [id number] [place] [address] [place] Protein [Mass/Vol] 5.9 g/dL Low 6.3-8.0 [facility] Comment on above: Order Comment: Speci men Type: BLOOD SPECIMEN Performed By: #### 2 4323-8, HSTNT, 2776-05, ####[facility]ATORYCLIA [id number] [place], [place] [id number] [place] [address] Sodium [Moles/Vol] 162 mmol/L High 136-144 [facility] Comment on above: Order Comment: Speci men Type: BLOOD SPECIMEN Performed By: #### 2 4323-8, HSTNT, 2776-05, ####[facility]ATORYCLIA [id number] [address] Urea nitrogen [Mass/Vol] 33 mg/dL High 9-24 [facility] Comment on above: Order Comment: Speci men Type: BLOOD SPECIMEN Performed By: #### 2 4323-8, HSTNT, 2776-05, ####[facility]ATORYCLIA [id number] [address] HIGH SENSITIVITY TROPONIN To n 06-14-2021 HIGH SENSITIVITY TAMIKO 22 ng/L High <12 [facility] Comment on [...] Performed By: #### H STNT ####[facility]ATORYCLIA [id number] [address] HIGH SENSITIVITY TAMIKO 22 ng/L High <12 [facility] Comment on [...] Performed By: #### 2 4323-8, HSTNT, 2776-05, ####[facility]ORYCLIA [id number] [address] Magnesium SerPl-mCncon 06-14 Magnesium [Mass/Vol] 2.9 mg/dL High 1.7-2.3 [facility] Comment on above: Order Comment: Speci men Type: BLOOD SPECIMEN Performed By: #### 2 4323-8, HSTNT, 2776-05, ####[facility]ATORYCLIA [id number] [address] Magnesium [Mass/Vol] 3.0 mg/dL High 1.7-2.3 [facility] Comment on above: Order Comment: Speci men Type: BLOOD SPECIMEN Performed By: #### 2 4321-2, 2776-05, ####[facility]ATORYCLIA [id number] [address] NURSING PROGon 06-14-2021 NURSING PROG Normal [facility] NUTRITIONon 06-14-2021 NUTRITION Normal [facility] Phosphate SerPl-mCncon 06-14 Phosphate [Mass/Vol] 2.4 mg/dL Low 2.7-4.8 [facility] Comment on above: Order Comment: Speci men Type: BLOOD SPECIMEN Performed By: #### 2 4323-8, HSTNT, 2776-05, ####[facility]ATORYCLIA [id number] [address] Phosphate [Mass/Vol] 3.2 mg/dL Normal 2.7-4.8 [facility] Comment on above: Order Comment: Speci men Type: BLOOD SPECIMEN Performed By: #### 2 4321-2, 2776-05, ####[facility]ORYCLIA [id number] [place] [address] [place] THERAPY NTon 06-14-2021 [...] 2 4321-2, , 2776-05 ####[facility]ORATORYCLIA [id number] [place] [address] [place] Calcium [Mass/Vol] 8.8 mg/dL Normal 8.5-10.2 [facility] Comment on above: Order Comment: Speci men Type: BLOOD SPECIMEN Performed By: #### 2 4321-2, , 2776-05 ####[facility]ATORYCLIA [id number] [place] [address] [place] Chloride [Moles/Vol] 120 mmol/L High 97-105 [facility] Comment on above: Order Comment: Speci men Type: BLOOD SPECIMEN Performed By: #### 2 4321-2, , 2776-05 ####[facility]ORYCLIA [id number] [place] [address] [place] CO2 [Moles/Vol] 28 mmol/L Normal 22-30 [facility] Comment on above: Order Comment: Speci men Type: BLOOD SPECIMEN Performed By: #### 2 4321-2, , 2776-05 ####[facility]ORYCLIA [id number] [place] [address] [place] Creatinine [Mass/Vol] 0.78 mg/dL Normal 0.73-1.22 [facility] Comment on above: Order Comment: Speci men Type: BLOOD SPECIMEN Performed By: #### 2 4321-2, 83098-1, 2776-05 ####[facility]ORATORYCLIA [id number] [place] [address] [place] GFR/1.73 sq M.predicted [...] 2 4321-2, , 2776-05 ####[facility] [id number] [place] [address] [place] Glucose [Mass/Vol] 126 mg/dL High 74-99 [facility] Comment on above: Order Comment: Shira feldman Type: BLOOD SPECIMEN Result Comment: The [place] [employer] (ADA) provides guidance for cutoff [...] Standards of Medical Care in Diabetes 2016, [place] [employer]. Diabetes Care. 2016.39(Suppl 1). Performed By: #### 2 4321-2, 87794-3, 2776- ####[facility]ATORYCLIA [id number] [place] [address] [place] Potassium [Moles/Vol] 3.6 mmol/L Low 3.7-5.1 [facility] Comment on above: Order Comment: Speci men Type: BLOOD SPECIMEN Performed By: #### 2 4321-2, , 2776-05 ####[facility]ORYCLIA [id number] [place] [address] [place] Sodium [Moles/Vol] 155 mmol/L High 136-144 [facility] Comment on above: Order Comment: Speci men Type: BLOOD SPECIMEN Performed By: #### 2 4321-2, , 2776-05 ####[facility]ORYCLIA [id number] [place] [address] [place] Urea nitrogen [Mass/Vol] 36 mg/dL High 9-24 [facility] Comment on above: Order Comment: Speci men Type: BLOOD SPECIMEN Performed By: #### 2 4321-2, , 2776-05 ####[facility]ORYCLIA [id number] [place], [place] [address] [place] [address] [place] Anion gap [Moles/Vol] 6 mmol/L Low 9-18 [facility] Comment on above: Order Comment: Speci men Type: BLOOD SPECIMEN Performed By: #### 2 4321-2, 2776-05, ####[facility]ORYCLIA [id number] [place] [address] [place] Calcium [Mass/Vol] 6.5 mg/dL Low 8.5-10.2 [facility] Comment on above: Order Comment: Speci men Type: BLOOD SPECIMEN Performed By: #### 2 4321-2, 2776-05, ####[facility]ORYCLIA [id number] [place] [address] [place] Chloride [Moles/Vol] 124 mmol/L High 97-105 [facility] Comment on above: Order Comment: Speci men Type: BLOOD SPECIMEN Performed By: #### 2 4321-2, 2776-05, ####[facility]ATORYCLIA [id number] [place], [place] [address] [place] [address] [place] CO2 [Moles/Vol] 24 mmol/L Normal 22-30 [facility] Comment on above: Order Comment: Speci men Type: BLOOD SPECIMEN Performed By: #### 2 4321-2, 2776-05, ####[facility]ATORYCLIA [id number] [address] [place] Creatinine [Mass/Vol] 0.61 mg/dL Low 0.73-1.22 [facility] Comment on above: Order Comment: Speci men Type: BLOOD SPECIMEN Performed By: #### 2 4321-2, 2776-05, ####[facility]ATORYCLIA [id number] [address] [place] GFR/1.73 sq M.predicted [...] #### 2 4321-2, 2776-05, ####[facility]ORATORYCLIA [id number] [place] [address] [place] Glucose [Mass/Vol] 100 mg/dL High 74-99 [facility] Comment on above: Order Comment: Speci men Type: BLOOD SPECIMEN Result Comment: The [place] [employer] (ADA) provides guidance for cutoff [...] Standards of Medical Care in Diabetes 2016, [place] [employer]. Diabetes Care. 2016.39(Suppl 1). Performed By: #### 2 4321-2, 2776-05, ####[facility]ORATORYCLIA [id number] [address] STATES OF [facility] Potassium [Moles/Vol] 2.7 mmol/L Low 3.7-5.1 [facility] Comment on above: Order Comment: Speci men Type: BLOOD SPECIMEN Performed By: #### 2 4321-2, 2776-05, ####[facility]ATORYCLIA [id number] [address] STATES OF [facility] Sodium [Moles/Vol] 154 mmol/L High 136-144 [facility] Comment on above: Order Comment: Speci men Type: BLOOD SPECIMEN Performed By: #### 2 4321-2, 2776-05, ####[facility]ATORYCLIA [id number] [address] [place] Urea nitrogen [Mass/Vol] 29 mg/dL High 9-24 [facility] Comment on above: Order Comment: Speci men Type: BLOOD SPECIMEN Performed By: #### 2 4321-2, 2776-05, ####[facility]ATORYCLIA [id number] [address] [place] CASE MANAGEMon 06-13-2021 CASE MANAGEM Normal [facility] CBC panel Auto (Bld)on 06-13 Erythrocyte distribution width (RBC) [Ratio] 15.9 % High 11.5-15.0 [facility] Comment on above: Order Comment: Speci men Type: BLOOD SPECIMEN Performed By: #### 5 8410-2 ####[facility]ATORYCLIA [id number] [address] Hematocrit (Bld) [Volume fraction] 34.3 % Low 39.0-51.0 [facility] Comment on above: Order Comment: Speci men Type: BLOOD SPECIMEN Performed By: #### 5 8410-2 ####[facility]ORYCLIA [id number] [address] Hemoglobin (Bld) [Mass/Vol] 9.9 g/dL Low 13.0-17.0 [facility] Comment on above: Order Comment: Speci men Type: BLOOD SPECIMEN Performed By: #### 5 8410-2 ####[facility]ORYCLIA [id number] [address] MCH (RBC) [Entitic mass] 27.3 pg Normal 26.0-34.0 [facility] Comment on above: Order Comment: Speci men Type: BLOOD SPECIMEN Performed By: #### 5 8410-2 ####[facility]ORYCLIA [id number] [address] MCHC (RBC) [Mass/Vol] 28.9 g/dL Low 30.5-36.0 [facility] Comment on above: Order Comment: Speci men Type: BLOOD SPECIMEN Performed By: #### 5 8410-2 ####[facility]ORYCLIA [id number] [address] MCV (RBC) [Entitic vol] 94.5 fL Normal 80.0-100.0 [facility] Comment on above: Order Comment: Speci men Type: BLOOD SPECIMEN Performed By: #### 5 8410-2 ####[facility]ORYCLIA [id number] [address] Nucleated RBC (Bld) [#/Vol] 10*3/uL Normal <0.01 [facility] Comment on above: Order Comment: Speci men Type: BLOOD SPECIMEN Performed By: #### 5 8410-2 ####[facility]ATORYCLIA [id number] [address] Platelet mean volume (Bld) [Entitic vol] 11.3 fL Normal 9.0-12.7 [facility] Comment on above: Order Comment: Speci men Type: BLOOD SPECIMEN Performed By: #### 5 8410-2 ####[facility]ATORYCLIA [id number] [address] STATES OF [facility] Platelets (Bld) [#/Vol] 269 10*3/uL Normal 150-400 [facility] Comment on above: Order Comment: Speci men Type: BLOOD SPECIMEN Performed By: #### 5 8410-2 ####[facility]ATORYCLIA [id number] [address] OF [facility] RBC (Bld) [#/Vol] 3.63 10*6/uL Low 4.20-6.00 [facility] Comment on above: Order Comment: Speci men Type: BLOOD SPECIMEN Performed By: #### 5 8410-2 ####[facility]ORYCLIA [id number] [address] OF [facility] WBC (Bld) [#/Vol] 12.77 10*3/uL High 3.70-11.00 [facility] Comment on above: Order Comment: Speci men Type: BLOOD SPECIMEN Performed By: #### 5 8410-2 ####[facility]ORYCLIA [id number] [address] Gas and Carbon monoxide pane l (BldV)on 06-13-2021 Base excess Calc (BldV) [Moles/Vol] 5.7 mmol/L High 0-2 [facility] Comment on above: Order Comment: Speci men Type: VENOUS BLOOD SPECIMEN Performed By: #### 2 4344-4 ####[facility]ATORYCLIA [id number] [address] Body temperature 99.5 [degF] Normal [facility] Comment on above: Order Comment: Speci men Type: VENOUS BLOOD SPECIMEN Performed By: #### 2 4344-4 ####[facility]ORYCLIA [id number] [address] CALCIUM IONIZED, PH CORRECTED 1.24 mmol/L Normal 1.08-1.30 [facility] Comment on above: Order Comment: Speci men Type: VENOUS BLOOD SPECIMEN Performed By: #### 2 4344-4 ####[facility]ORYCLIA [id number] [address] Calcium.ionized (BldV) [Mass/Vol] 1.23 mmol/L Normal 1.08-1.30 [facility] Comment on above: Order Comment: Speci men Type: VENOUS BLOOD SPECIMEN Performed By: #### 2 4344-4 ####[facility]ORYCLIA [id number] [address] Carboxyhemoglobin (BldV) [Mass fraction] 1.2 % Normal 0.0-2.0 [facility] Comment on above: Order Comment: Speci men Type: VENOUS BLOOD SPECIMEN Result Comment: Carb oxyhemoglobin Reference Range for Smokers: 2.0-8.0% Performed By: #### 2 4344-4 ####[facility] [id number] [address] CO2 (BldV) [Partial pressure] 48 mm[Hg] Normal 42-55 [facility] Comment on above: Order Comment: Speci men Type: VENOUS BLOOD SPECIMEN Performed By: #### 2 4344-4 ####[facility]ORY[facility] [id number] [address] CO2 [Moles/Vol] 28.2 mmol/L Normal 25-29 [facility] Comment on above: Order Comment: Speci men Type: VENOUS BLOOD SPECIMEN Performed By: #### 2 4344-4 ####[facility]ORY[facility] [id number] [address] CO2 adjusted to patient's actual temperature (BldV) [Partial pressure] 49 mmHg Normal 42-55 [facility] Comment on above: Order Comment: Speci men Type: VENOUS BLOOD SPECIMEN Performed By: #### 2 4344-4 ####[facility]ORYCL[facility] [id number] [address] Glucose [Mass/Vol] 131 mg/dL High 60-105 [facility] Comment on above: Order Comment: Speci men Type: VENOUS BLOOD SPECIMEN Performed By: #### 2 4344-4 ####[facility]ORY[facility] [id number] [address] HCO3 (Bld) [Moles/Vol] 30.6 mmol/L High 24-28 [facility] Comment on above: Order Comment: Speci men Type: VENOUS BLOOD SPECIMEN Performed By: #### 2 4344-4 ####[facility]ORYCL[facility] [id number] [address] [place] Hematocrit (Bld) [Volume fraction] 32.8 % Low 39.0-51.0 [facility] Comment on above: Order Comment: Speci men Type: VENOUS BLOOD SPECIMEN Performed By: #### 2 4344-4 ####[facility]ATORYCLIA [id number] [address] [place] Hemoglobin (Bld) [Mass/Vol] 10.6 g/dL Low 13.0-17.0 [facility] Comment on above: Order Comment: Speci men Type: VENOUS BLOOD SPECIMEN Performed By: #### 2 4344-4 ####[facility]ORYCLIA [id number] [address] [place] LITERS 6 Liters/min Normal [facility] Comment on above: Order Comment: Speci men Type: VENOUS BLOOD SPECIMEN Performed By: #### 2 4344-4 ####[facility]ATORYCLIA [id number] [place] [address] [facility] [place] Methemoglobin (Bld) [Mass fraction] 1.0 % Normal 0.0-1.5 [facility] Comment on above: Order Comment: Speci men Type: VENOUS BLOOD SPECIMEN Performed By: #### 2 4344-4 ####[facility]ORYCLIA [id number] [place] [address] [facility] O2 THERAPY NC = Nasal Cannula Normal [facility] Comment on above: Order Comment: Speci men Type: VENOUS BLOOD SPECIMEN Performed By: #### 2 4344-4 ####[facility]ATORYCLIA [id number] [place], [place] [address] [place] [address] OF [place] Oxygen (BldV) [Partial pressure] 42 mm[Hg] Normal 35-45 [facility] Comment on above: Order Comment: Speci men Type: VENOUS BLOOD SPECIMEN Performed By: #### 2 4344-4 ####[facility]ATORYCLIA [id number] [place], [place] [id number] [place] [address] Oxygen adjusted to patient's actual temperature (BldV) [Partial pressure] 43.8 mmHg Normal 35-45 [facility] Comment on above: Order Comment: Speci men Type: VENOUS BLOOD SPECIMEN Performed By: #### 2 4344-4 ####[facility]ATORYCLIA [id number] [place], [place] [address] [place] [address] [place] Oxygen saturation in Blood 76.7 % Normal 60-85 [facility] Comment on above: Order Comment: Speci men Type: VENOUS BLOOD SPECIMEN Performed By: #### 2 4344-4 ####[facility]ATORYCLIA [id number] [place], [place] [address] [place] [address] [place] Oxyhemoglobin (BldV) [Mass fraction] 75 % Normal 60-85 [facility] Comment on above: Order Comment: Speci men Type: VENOUS BLOOD SPECIMEN Performed By: #### 2 4344-4 ####[facility]ATORYCLIA [id number] [place], [place] [address] [place] [address] [place] pH (BldV) 7.42 [pH] Normal 7.32-7.42 [facility] Comment on above: Order Comment: Speci men Type: VENOUS BLOOD SPECIMEN Performed By: #### 2 4344-4 ####[facility]ORYCLIA [id number] [address] pH adjusted to patient's actual temperature (BldV) 7.41 Normal 7.32-7.42 [facility] Comment on above: Order Comment: Speci men Type: VENOUS BLOOD SPECIMEN Performed By: #### 2 4344-4 ####[facility]ORYCLIA [id number] [address] Potassium [Moles/Vol] 3.5 mmol/L Normal 3.5-5.0 [facility] Comment on above: Order Comment: Speci men Type: VENOUS BLOOD SPECIMEN Performed By: #### 2 4344-4 ####[facility]ORYCLIA [id number] [address] Sodium [Moles/Vol] 157 mmol/L High 136-144 [facility] Comment on above: Order Comment: Speci men Type: VENOUS BLOOD SPECIMEN Performed By: #### 2 4344-4 ####[facility]ORYCLIA [id number] [address] Magnesium SerPl-mCncon 06-13 Magnesium [Mass/Vol] 3.0 mg/dL High 1.7-2.3 [facility] Comment on above: Order Comment: Speci men Type: BLOOD SPECIMEN Performed By: #### 2 4321-2, , 2776-05 ####[facility]ORYCLIA [id number] [address] Magnesium [Mass/Vol] 2.2 mg/dL Normal 1.7-2.3 [facility] Comment on above: Order Comment: Speci men Type: BLOOD SPECIMEN Performed By: #### 2 4321-2, 2776-, ####[facility]ORYCLIA [id number] [place] [address] [place] Phosphate SerPl-mCncon 06-13 Phosphate [Mass/Vol] 2.2 mg/dL Low 2.7-4.8 [facility] Comment on above: Order Comment: Speci men Type: BLOOD SPECIMEN Performed By: #### 2 4321-2, , 2776-05 ####[facility]ORATORYCLIA [id number] [address] STATES OF [facility] Phosphate [Mass/Vol] 1.8 mg/dL Low 2.7-4.8 [facility] Comment on above: Order Comment: Speci men Type: BLOOD SPECIMEN Performed By: #### 2 4321-2, 2776-05, ####[facility] LABORATORYCLIA [id number] [address] STATES OF [facility] XR CHEST 1V FRONTALon 2021 XR [...] Performed By: #### 6 11-4 ####[facility]ORATORYCLIA [id number] [address] STATES [place] Basic metabolic 2000 panelon 06-12-2021 Anion gap [Moles/Vol] 6 mmol/L Low 9-18 [facility] Comment on above: Order Comment: Speci men Type: BLOOD SPECIMEN Performed By: #### 2 777-1, 58358-0, ####[facility]ORATORYCLIA [id number] [address] STATES [place] Calcium [Mass/Vol] 8.7 mg/dL Normal 8.5-10.2 [facility] Comment on above: Order Comment: Speci men Type: BLOOD SPECIMEN Performed By: #### 2 777-1, 31385-7, ####[facility]ORATORYCLIA [id number] [address] Chloride [Moles/Vol] 118 mmol/L High 97-105 [facility] Comment on above: Order Comment: Speci men Type: BLOOD SPECIMEN Performed By: #### 2 777-1, 99143-4, ####[facility]ORATORYCLIA [id number] [address] CO2 [Moles/Vol] 28 mmol/L Normal 22-30 [facility] Comment on above: Order Comment: Speci men Type: BLOOD SPECIMEN Performed By: #### 2 777-1, , ####[facility]ORATORYCLIA [id number] [address] STATES [facility] Creatinine [Mass/Vol] 0.77 mg/dL Normal 0.73-1.22 [facility] Comment on above: Order Comment: Speci men Type: BLOOD SPECIMEN Performed By: #### 2 777-1, , ####[facility]ORATORYCLIA [id number] [address] GFR/1.73 sq M.predicted MDRD (S/P/Bld) [Vol [...] actual GFR. Performed By: #### 2 777-1, 06062-2, ####[facility]ORATORYCLIA [id number] [place] [address] [place] Glucose [Mass/Vol] 116 mg/dL High 74-99 [facility] Comment on above: Order Comment: Speci men Type: BLOOD SPECIMEN Result Comment: The [place] [employer] (ADA) provides guidance for cutoff [...] Standards of Medical Care in Diabetes 2016, [place] [employer]. Diabetes Care. 2016.39(Suppl 1). Performed By: #### 2 777-1, , ####[facility] LABORATORYCLIA [id number] [place] [address] [place] Potassium [Moles/Vol] 4.0 mmol/L Normal 3.7-5.1 [facility] Comment on above: Order Comment: Speci men Type: BLOOD SPECIMEN Performed By: #### 2 777-1, , ####[facility]ORATORYCLIA [id number] [place] [address] [place] Sodium [Moles/Vol] 152 mmol/L High 136-144 [facility] Comment on above: Order Comment: Speci men Type: BLOOD SPECIMEN Performed By: #### 2 777-1, , ####[facility]ORATORYCLIA [id number] [place] [address] [place] Urea nitrogen [Mass/Vol] 34 mg/dL High 9-24 [facility] Comment on above: Order Comment: Speci men Type: BLOOD SPECIMEN Performed By: #### 2 777-1, 49812-1, 95126-3 ####[facility]ORATORYCLIA [id number] [address] CBC panel Auto (Bld)on 06-12 Erythrocyte distribution width (RBC) [Ratio] 16.1 % High 11.5-15.0 [facility] Comment on above: Order Comment: Speci men Type: BLOOD SPECIMEN Performed By: #### 5 8410-2 ####[facility]ORATORYCLIA [id number] [address] Hematocrit (Bld) [Volume fraction] 32.8 % Low 39.0-51.0 [facility] Comment on above: Order Comment: Speci men Type: BLOOD SPECIMEN Performed By: #### 5 8410-2 ####[facility]ORATORYCLIA [id number] [address] Hemoglobin (Bld) [Mass/Vol] 9.9 g/dL Low 13.0-17.0 [facility] Comment on above: Order Comment: Speci men Type: BLOOD SPECIMEN Performed By: #### 5 8410-2 ####[facility]ORATORYCLIA [id number] [address] MCH (RBC) [Entitic mass] 28.4 pg Normal 26.0-34.0 [facility] Comment on above: Order Comment: Speci men Type: BLOOD SPECIMEN Performed By: #### 5 8410-2 ####[facility]ORATORYCLIA [id number] [address] MCHC (RBC) [Mass/Vol] 30.2 g/dL Low 30.5-36.0 [facility] Comment on above: Order Comment: Speci men Type: BLOOD SPECIMEN Performed By: #### 5 8410-2 ####[facility]ORATORYCLIA [id number] [address] MCV (RBC) [Entitic vol] 94.3 fL Normal 80.0-100.0 [facility] Comment on above: Order Comment: Speci men Type: BLOOD SPECIMEN Performed By: #### 5 8410-2 ####[facility]ORATORYCLIA [id number] [address] Nucleated RBC (Bld) [#/Vol] 10*3/uL Normal <0.01 [facility] Comment on above: Order Comment: Speci men Type: BLOOD SPECIMEN Performed By: #### 5 8410-2 ####[facility]ORATORYCLIA [id number] [address] Platelet mean volume (Bld) [Entitic vol] 11.2 fL Normal 9.0-12.7 [facility] Comment on above: Order Comment: Speci men Type: BLOOD SPECIMEN Performed By: #### 5 8410-2 ####[facility]ORATORYCLIA [id number] [address] Platelets (Bld) [#/Vol] 218 10*3/uL Normal 150-400 [facility] Comment on above: Order Comment: Speci men Type: BLOOD SPECIMEN Performed By: #### 5 8410-2 ####[facility]ATORYCLIA [id number] [address] RBC (Bld) [#/Vol] 3.48 10*6/uL Low 4.20-6.00 [facility] Comment on above: Order Comment: Speci men Type: BLOOD SPECIMEN Performed By: #### 5 8410-2 ####[facility]ORATORYCLIA [id number] [address] OF [facility] WBC (Bld) [#/Vol] 13.33 10*3/uL High 3.70-11.00 [facility] Comment on above: Order Comment: Speci men Type: BLOOD SPECIMEN Performed By: #### 5 8410-2 ####[facility]ORATORYCLIA [id number] [address] OF [facility] CONSULT PROGon 06-12-2021 CONSULT PROG Normal [facility] CT DRN PLACE PERIT/RETROP FL BIon 06-12-[address] PERIT/RETROP FL BI Normal [facility] HISTORY PHYSICALon 2 HISTORY PHYSICAL Normal [facility] Magnesium SerPl-mCncon 06-12 Magnesium [Mass/Vol] 2.7 mg/dL High 1.7-2.3 [facility] Comment on above: Order Comment: Speci men Type: BLOOD SPECIMEN Performed By: #### 2 777-1, 70720-5, 41173-8 ####[facility]ORATORYCLIA [id number] [place] [address] [place] PT panel Coag (PPP)on 2021 INR Coag (PPP) [Relative time] 1.1 {INR} Normal 0.9-1.3 [facility] Comment on above: Order Comment: Speci men Type: BLOOD SPECIMEN Result Comment: Yris min K Antagonist (VKA) Therapeutic Range: INR 2 to 3 (Target INR of 2.5)Note: For patients treated with VKA drugs, such as warfarin, the [place] [employer] 2012 Guideline recommends [...] Performed By: #### 3 4528-0 ####[facility]ORATORYCLIA [id number] [place] [address] [place] PT Coag (PPP) [Time] 11.9 s Normal 9.7-13.0 [facility] Comment on above: Order Comment: Speci men Type: BLOOD SPECIMEN Performed By: #### 3 4528-0 ####[facility]ORATORYCLIA [id number] [address] Phosphate SerPl-mCncon 06-12 Phosphate [Mass/Vol] 2.2 mg/dL Low 2.7-4.8 [facility] Comment on above: Order Comment: Speci men Type: BLOOD SPECIMEN Performed By: #### 2 777-1, 25392-1, 46725-8 ####[facility]ORATORYCLIA [id number] [address] OF [facility] XR ABDOMEN 1V SUPINEon 06-12 XR ABDOMEN 1V SUPINE Normal [facility] ALLIED HEALTHon 06-11-2021 ALLIED HEALTH Normal [facility] Bacteria Bld Culton 06-11-19 22 Bacteria identified Cx Nom (Bld) CULTURE, BLOOD: No growth 5 days Normal [facility] Comment on above: Performed By: #### 6 00-7 ####[facility]ATORYCLIA [id number] [address] Bacteria identified Cx Nom (Bld) CULTURE, BLOOD: No growth 5 days Normal [facility] Comment on above: Performed By: #### 6 00-7 ####[facility]ORATORYCLIA [id number] [address] Bacteria Ur Culton 2 Bacteria identified Cx Nom (U) CULTURE, URINE: No growth (<1,000 CFU/ml) [facility] Comment on above: Performed By: #### 6 30-4 ####[facility]ORATORYCLIA [id number] [address] Basic metabolic 2000 panelon 06-11-2021 Anion gap [Moles/Vol] 9 mmol/L Normal 9-18 [facility] Comment on above: Order Comment: Speci men Type: BLOOD SPECIMEN Performed By: #### 1 9123-9, 2777-1, 56739-2 ####[facility]ORATORYCLIA [id number] [address] STATES OF [facility] Calcium [Mass/Vol] 8.5 mg/dL Normal 8.5-10.2 [facility] Comment on above: Order Comment: Speci men Type: BLOOD SPECIMEN Performed By: #### 1 9123-9, 2777-1, 62580-7 ####[facility]ORATORYCLIA [id number] [address] [place] Chloride [Moles/Vol] 118 mmol/L High 97-105 [facility] Comment on above: Order Comment: Speci men Type: BLOOD SPECIMEN Performed By: #### 1 9123-9, 277-, 92021-3 ####[facility]ATORYCLIA [id number] [address] CO2 [Moles/Vol] 27 mmol/L Normal 22-30 [facility] Comment on above: Order Comment: Speci men Type: BLOOD SPECIMEN Performed By: #### 1 9123-9, 2777-1, 30606-4 ####[facility]ORATORYCLIA [id number] [address] STATES [facility] Creatinine [Mass/Vol] 0.75 mg/dL Normal 0.73-1.22 [facility] Comment on above: Order Comment: Speci men Type: BLOOD SPECIMEN Performed By: #### 1 9123-9, 2777-1, 97881-0 ####[facility]ORATORYCLIA [id number] [address] STATES [place] GFR/1.73 sq M.predicted [...] GFR. Performed By: #### 1 9123-9, 7-, 82964-8 ####[facility]ORATORYCLIA [id number] [address] STATES [place] Glucose [Mass/Vol] 142 mg/dL High 74-99 [facility] Comment on above: Order Comment: Speci men Type: BLOOD SPECIMEN Result Comment: The [place] [employer] (ADA) provides guidance for cutoff [...] Standards of Medical Care in Diabetes 2016, [place] [employer]. Diabetes Care. 2016.39(Suppl 1). Performed By: #### 1 9123-9, 2776-05, 04151-7 ####[facility]ORATORYCLIA [id number] [place] [address] [place] Potassium [Moles/Vol] 3.6 mmol/L Low 3.7-5.1 [facility] Comment on above: Order Comment: Speci men Type: BLOOD SPECIMEN Performed By: #### 1 9123-9, 27711-04, 74588-9 ####[facility]ORATORYCLIA [id number] [address] STATES [place] Sodium [Moles/Vol] 154 mmol/L High 136-144 [facility] Comment on above: Order Comment: Speci men Type: BLOOD SPECIMEN Performed By: #### 1 9123-9, 27711-04, 37629-8 ####[facility]ATORYCLIA [id number] [address] Urea nitrogen [Mass/Vol] 31 mg/dL High 9-24 [facility] Comment on above: Order Comment: Speci men Type: BLOOD SPECIMEN Performed By: #### 1 9123-9, 2777-1, 03383-2 ####[facility]ATORYCLIA [id number] [address] C diff Tox gens Stl Ql MEGAN+p robeon 06-11-2021 C. difficile toxin genes MEGAN+probe Ql (Stl) Negative Normal Negative for C. difficile toxin by PCR [facility] Comment on above: Order Comment: Speci men Type: STOOL SPECIMEN Performed By: #### 5 4067-4 ####[facility]ATORYCLIA [id number] [address] CBC W Auto Differential pane l (Bld)on 06-11-2021 Basophils (Bld) [#/Vol] 0.03 10*3/uL Normal <0.11 [facility] Comment on above: Order Comment: Speci men Type: BLOOD SPECIMEN Performed By: #### 5 7021-8 ####[facility]ATORYCLIA [id number] [address] Basophils/100 WBC (Bld) 0.2 % Normal [facility] Comment on above: Order Comment: Speci men Type: BLOOD SPECIMEN Performed By: #### 5 7021-8 ####[facility]ATORYCLIA [id number] [address] Differential cell count method Nom (Bld) Auto Normal [facility] Comment on above: Order Comment: Speci men Type: BLOOD SPECIMEN Performed By: #### 5 7021-8 ####[facility]ORATORYCLIA [id number] [address] STATES [facility] Eosinophils (Bld) [#/Vol] 0.19 10*3/uL Normal <0.46 [facility] Comment on above: Order Comment: Speci men Type: BLOOD SPECIMEN Performed By: #### 5 7021-8 ####[facility]ORYCLIA [id number] [address] Eosinophils/100 WBC (Bld) 1.5 % Normal [facility] Comment on above: Order Comment: Speci men Type: BLOOD SPECIMEN Performed By: #### 5 7021-8 ####[facility]ATORYCLIA [id number] [address] Erythrocyte distribution width (RBC) [Ratio] 16.3 % High 11.5-15.0 [facility] Comment on above: Order Comment: Speci men Type: BLOOD SPECIMEN Performed By: #### 5 7021-8 ####[facility]ATORYCLIA [id number] [address] Hematocrit (Bld) [Volume fraction] 32.1 % Low 39.0-51.0 [facility] Comment on above: Order Comment: Speci men Type: BLOOD SPECIMEN Performed By: #### 5 7021-8 ####[facility]ATORYCLIA [id number] [address] Hemoglobin (Bld) [Mass/Vol] 9.3 g/dL Low 13.0-17.0 [facility] Comment on above: Order Comment: Speci men Type: BLOOD SPECIMEN Performed By: #### 5 7021-8 ####[facility]ATORYCLIA [id number] [address] IMMATURE GRAN % 0.6 % Normal [facility] Comment on above: Order Comment: Speci men Type: BLOOD SPECIMEN Performed By: #### 5 7021-8 ####[facility]ORATORYCLIA [id number] [address] IMMATURE GRAN ABS 0.08 k/uL Normal <0.10 [facility] Comment on above: Order Comment: Speci men Type: BLOOD SPECIMEN Performed By: #### 5 7021-8 ####[facility]ORYCLIA [id number] [address] Lymphocytes (Bld) [#/Vol] 1.65 10*3/uL Normal 1.00-4.00 [facility] Comment on above: Order Comment: Speci men Type: BLOOD SPECIMEN Performed By: #### 5 7021-8 ####[facility]ATORYCLIA [id number] [address] Lymphocytes/100 WBC (Bld) 12.8 % Normal [facility] Comment on above: Order Comment: Speci men Type: BLOOD SPECIMEN Performed By: #### 5 7021-8 ####[facility]ATORYCLIA [id number] [address] MCH (RBC) [Entitic mass] 27.2 pg Normal 26.0-34.0 [facility] Comment on above: Order Comment: Speci men Type: BLOOD SPECIMEN Performed By: #### 5 7021-8 ####[facility]ORATORYCLIA [id number] [address] MCHC (RBC) [Mass/Vol] 29.0 g/dL Low 30.5-36.0 [facility] Comment on above: Order Comment: Speci men Type: BLOOD SPECIMEN Performed By: #### 5 7021-8 ####[facility]ATORYCLIA [id number] [address] MCV (RBC) [Entitic vol] 93.9 fL Normal 80.0-100.0 [facility] Comment on above: Order Comment: Speci men Type: BLOOD SPECIMEN Performed By: #### 5 7021-8 ####[facility]ATORYCLIA [id number] [address] Monocytes (Bld) [#/Vol] 0.68 10*3/uL Normal <0.87 [facility] Comment on above: Order Comment: Speci men Type: BLOOD SPECIMEN Performed By: #### 5 7021-8 ####[facility]ORATORYCLIA [id number] [place] [address] Monocytes/100 WBC (Bld) 5.3 % Normal [facility] Comment on above: Order Comment: Speci men Type: BLOOD SPECIMEN Performed By: #### 5 7021-8 ####[facility] LABORATORYCLIA [id number] [address] Neutrophils (Bld) [#/Vol] 10.22 10*3/uL High 1.45-7.50 [facility] Comment on above: Order Comment: Speci men Type: BLOOD SPECIMEN Performed By: #### 5 7021-8 ####[facility]ATORYCLIA [id number] [address] Neutrophils/100 WBC (Bld) 79.6 % Normal [facility] Comment on above: Order Comment: Speci men Type: BLOOD SPECIMEN Performed By: #### 5 7021-8 ####[facility]ATORYCLIA [id number] [address] Nucleated RBC (Bld) [#/Vol] 10*3/uL Normal <0.01 [facility] Comment on above: Order Comment: Speci men Type: BLOOD SPECIMEN Performed By: #### 5 7021-8 ####[facility]ATORYCLIA [id number] [address] Nucleated RBC/100 WBC (Bld) [Ratio] 0.0 /100 WBC Normal 0.0 [facility] Comment on above: Order Comment: Speci men Type: BLOOD SPECIMEN Performed By: #### 5 7021-8 ####[facility] LABORATORYCLIA [id number] [address] Platelet mean volume (Bld) [Entitic vol] 11.1 fL Normal 9.0-12.7 [facility] Comment on above: Order Comment: Speci men Type: BLOOD SPECIMEN Performed By: #### 5 7021-8 ####[facility]ORATORYCLIA [id number] [address] Platelets (Bld) [#/Vol] 188 10*3/uL Normal 150-400 [facility] Comment on above: Order Comment: Speci men Type: BLOOD SPECIMEN Performed By: #### 5 7021-8 ####[facility]ATORYCLIA [id number] [address] RBC (Bld) [#/Vol] 3.42 10*6/uL Low 4.20-6.00 [facility] Comment on above: Order Comment: Speci men Type: BLOOD SPECIMEN Performed By: #### 5 7021-8 ####[facility]ATORYCLIA [id number] [address] WBC (Bld) [#/Vol] 12.85 10*3/uL High 3.70-11.00 [facility] Comment on above: Order Comment: Speci men Type: BLOOD SPECIMEN Performed By: #### 5 7021-8 ####[facility]ORATORYCLIA [id number] [address] CBC panel Auto (Bld)on 06-11 Erythrocyte distribution width (RBC) [Ratio] 16.2 % High 11.5-15.0 [facility] Comment on above: Order Comment: Speci men Type: BLOOD SPECIMEN Performed By: #### 5 8410-2 ####[facility] LABORATORYCLIA [id number] [address] Hematocrit (Bld) [Volume fraction] 34.5 % Low 39.0-51.0 [facility] Comment on above: Order Comment: Speci men Type: BLOOD SPECIMEN Performed By: #### 5 8410-2 ####[facility] LABORATORYCLIA [id number] [address] Hemoglobin (Bld) [Mass/Vol] 10.3 g/dL Low 13.0-17.0 [facility] Comment on above: Order Comment: Speci men Type: BLOOD SPECIMEN Performed By: #### 5 8410-2 ####[facility] LABORATORYCLIA [id number] [address] MCH (RBC) [Entitic mass] 28.1 pg Normal 26.0-34.0 [facility] Comment on above: Order Comment: Speci men Type: BLOOD SPECIMEN Performed By: #### 5 8410-2 ####[facility] LABORATORYCLIA [id number] [address] MCHC (RBC) [Mass/Vol] 29.9 g/dL Low 30.5-36.0 [facility] Comment on above: Order Comment: Speci men Type: BLOOD SPECIMEN Performed By: #### 5 8410-2 ####[facility] LABORATORYCLIA [id number] [address] MCV (RBC) [Entitic vol] 94.3 fL Normal 80.0-100.0 [facility] Comment on above: Order Comment: Speci men Type: BLOOD SPECIMEN Performed By: #### 5 8410-2 ####[facility] LABORATORYCLIA [id number] [address] Nucleated RBC (Bld) [#/Vol] 10*3/uL Normal <0.01 [facility] Comment on above: Order Comment: Speci men Type: BLOOD SPECIMEN Performed By: #### 5 8410-2 ####[facility]ATORYCLIA [id number] [address] Platelet mean volume (Bld) [Entitic vol] 10.9 fL Normal 9.0-12.7 [facility] Comment on above: Order Comment: Speci men Type: BLOOD SPECIMEN Performed By: #### 5 8410-2 ####[facility]ATORYCLIA [id number] [address] Platelets (Bld) [#/Vol] 210 10*3/uL Normal 150-400 [facility] Comment on above: Order Comment: Speci men Type: BLOOD SPECIMEN Performed By: #### 5 8410-2 ####[facility]ORYCLIA [id number] [address] RBC (Bld) [#/Vol] 3.66 10*6/uL Low 4.20-6.00 [facility] Comment on above: Order Comment: Speci men Type: BLOOD SPECIMEN Performed By: #### 5 8410-2 ####[facility]ORYCLIA [id number] [address] WBC (Bld) [#/Vol] 13.03 10*3/uL High 3.70-11.00 [facility] Comment on above: Order Comment: Speci men Type: BLOOD SPECIMEN Performed By: #### 5 8410-2 ####[facility]ORYCLIA [id number] [address] CONSULT PROGon 06-11-2021 CONSULT PROG Normal [facility] CONSULT PROG Normal [facility] CONSULT PROG Normal [facility] CT ABD/PEL W IVCONon 022 CT ABD/PEL W IVCON Invalid Interpretation Code [facility] Magnesium SerPl-mCncon 06-11 Magnesium [Mass/Vol] 2.7 mg/dL High 1.7-2.3 [facility] Comment on above: Order Comment: Speci men Type: BLOOD SPECIMEN Performed By: #### 1 9123-9, 2777-1, 77916-9 ####[facility]ORYCLIA [id number] [address] Phosphate SerPl-mCncon 06-11 Phosphate [Mass/Vol] 2.5 mg/dL Low 2.7-4.8 [facility] Comment on above: Order Comment: Speci men Type: BLOOD SPECIMEN Performed By: #### 1 9123-9, 2777-1, 43424-6 ####[facility]ATORYCLIA [id number] [address] OF [facility] Basic metabolic 2000 panelon 06-10-2021 Anion gap [Moles/Vol] 7 mmol/L Low 9-18 [facility] Comment on above: Order Comment: Speci men Type: BLOOD SPECIMEN Performed By: #### 2 777-1, 85272-4, , HFP ####[facility]ATORYCLIA [id number] [place], [place] [id number] [place] [address] STATES OF [facility] Calcium [Mass/Vol] 8.5 mg/dL Normal 8.5-10.2 [facility] Comment on above: Order Comment: Speci men Type: BLOOD SPECIMEN Performed By: #### 2 777-1, 95998-1, , HFP ####[facility]ORYCLIA [id number] [place], [place] [address] [place] [address] [place] Chloride [Moles/Vol] 118 mmol/L High 97-105 [facility] Comment on above: Order Comment: Speci men Type: BLOOD SPECIMEN Performed By: #### 2 777-1, 56054-9, , HFP ####[facility]ATORYCLIA [id number] [address] [place] CO2 [Moles/Vol] 26 mmol/L Normal 22-30 [facility] Comment on above: Order Comment: Speci men Type: BLOOD SPECIMEN Performed By: #### 2 777-1, 23250-8, , HFP ####[facility]ORYCLIA [id number] [address] [place] Creatinine [Mass/Vol] 0.70 mg/dL Low 0.73-1.22 [facility] Comment on above: Order Comment: Speci men Type: BLOOD SPECIMEN Performed By: #### 2 777-1, 60331-0, , HFP ####[facility]ATORYCLIA [id number] [place] [address] [place] GFR/1.73 sq M.predicted [...] actual GFR. Performed By: #### 2 777-1, 32887-0, , [facility] ####[facility]ATORYCLIA [id number] [place] [address] [place] Glucose [Mass/Vol] 135 mg/dL High 74-99 [facility] Comment on above: Order Comment: Speci men Type: BLOOD SPECIMEN Result Comment: The [place] [employer] (ADA) provides guidance for cutoff [...] Standards of Medical Care in Diabetes 2016, [place] [employer]. Diabetes Care. 2016.39(Suppl 1). Performed By: #### 2 777-1, 40458-8, , [facility] ####[facility]ORATORYIA [id number] [place] [address] [place] Potassium [Moles/Vol] 3.9 mmol/L Normal 3.7-5.1 [facility] Comment on above: Order Comment: Speci men Type: BLOOD SPECIMEN Performed By: #### 2 777-1, 62129-0, , [facility] ####[facility]ATORYCLIA [id number] [place] [address] [place] Sodium [Moles/Vol] 151 mmol/L High 136-144 [facility] Comment on above: Order Comment: Speci men Type: BLOOD SPECIMEN Performed By: #### 2 777-1, 06261-1, , [facility] ####[facility]ATORYCLIA [id number] [address] Urea nitrogen [Mass/Vol] 27 mg/dL High 9-24 [facility] Comment on above: Order Comment: Speci men Type: BLOOD SPECIMEN Performed By: #### 2 777-1, 90236-6, , [facility] ####[facility]ATORYCLIA [id number] [address] CASE MANAGEMon 06-10-2021 CASE MANAGEM Normal [facility] CBC panel Auto (Bld)on 06-10 Erythrocyte distribution width (RBC) [Ratio] 16.2 % High 11.5-15.0 [facility] Comment on above: Order Comment: Speci men Type: BLOOD SPECIMEN Performed By: #### 5 8410-2 ####[facility]ATORYCLIA [id number] [address] Hematocrit (Bld) [Volume fraction] 34.8 % Low 39.0-51.0 [facility] Comment on above: Order Comment: Speci men Type: BLOOD SPECIMEN Performed By: #### 5 8410-2 ####[facility]ATORYCLIA [id number] [address] Hemoglobin (Bld) [Mass/Vol] 10.2 g/dL Low 13.0-17.0 [facility] Comment on above: Order Comment: Speci men Type: BLOOD SPECIMEN Performed By: #### 5 8410-2 ####[facility]ATORYCLIA [id number] [address] MCH (RBC) [Entitic mass] 27.1 pg Normal 26.0-34.0 [facility] Comment on above: Order Comment: Speci men Type: BLOOD SPECIMEN Performed By: #### 5 8410-2 ####[facility]ATORYCLIA [id number] [address] MCHC (RBC) [Mass/Vol] 29.3 g/dL Low 30.5-36.0 [facility] Comment on above: Order Comment: Speci men Type: BLOOD SPECIMEN Performed By: #### 5 8410-2 ####[facility]ATORYCLIA [id number] [address] MCV (RBC) [Entitic vol] 92.6 fL Normal 80.0-100.0 [facility] Comment on above: Order Comment: Speci men Type: BLOOD SPECIMEN Performed By: #### 5 8410-2 ####[facility]ATORYCLIA [id number] [address] Nucleated RBC (Bld) [#/Vol] 10*3/uL Normal <0.01 [facility] Comment on above: Order Comment: Speci men Type: BLOOD SPECIMEN Performed By: #### 5 8410-2 ####[facility]ATORYCLIA [id number] [address] Platelet mean volume (Bld) [Entitic vol] 10.4 fL Normal 9.0-12.7 [facility] Comment on above: Order Comment: Speci men Type: BLOOD SPECIMEN Performed By: #### 5 8410-2 ####[facility]ATORYCLIA [id number] [address] Platelets (Bld) [#/Vol] 206 10*3/uL Normal 150-400 [facility] Comment on above: Order Comment: Speci men Type: BLOOD SPECIMEN Performed By: #### 5 8410-2 ####[facility]ATORYCLIA [id number] [address] RBC (Bld) [#/Vol] 3.76 10*6/uL Low 4.20-6.00 [facility] Comment on above: Order Comment: Speci men Type: BLOOD SPECIMEN Performed By: #### 5 8410-2 ####[facility]ORATORYCLIA [id number] [place] [address] [facility] WBC (Bld) [#/Vol] 11.36 10*3/uL High 3.70-11.00 [facility] Comment on above: Order Comment: Speci men Type: BLOOD SPECIMEN Performed By: #### 5 8410-2 ####[facility]ORYCLIA [id number] [address] HEPATIC FUNCTION PNLon 06-10 Albumin [Mass/Vol] 3.1 g/dL Low 3.9-4.9 [facility] Comment on above: Order Comment: Speci men Type: BLOOD SPECIMEN Performed By: #### 2 777-1, 98998-6, , HFP ####[facility]ORATORYCLIA [id number] [place], [place] [address] [place] [address] ALP [Catalytic activity/Vol] 73 U/L Normal 38-113 [facility] Comment on above: Order Comment: Speci men Type: BLOOD SPECIMEN Performed By: #### 2 777-1, 64428-8, , HFP ####[facility]ATORYCLIA [id number] [address] ALT With P-5'-P [Catalytic activity/Vol] 64 U/L High 10-54 [facility] Comment on above: Order Comment: Speci men Type: BLOOD SPECIMEN Performed By: #### 2 777-1, 22471-5, , HFP ####[facility]ATORYCLIA [id number] [place], [place] [address] [place] [address] AST With P-5'-P [Catalytic activity/Vol] 44 U/L High 14-40 [facility] Comment on above: Order Comment: Speci men Type: BLOOD SPECIMEN Performed By: #### 2 777-1, 11254-5, , HFP ####[facility]ATORYCLIA [id number] [address] Bilirubin [Mass/Vol] 0.5 mg/dL Normal 0.2-1.3 [facility] Comment on above: Order Comment: Speci men Type: BLOOD SPECIMEN Performed By: #### 2 777-1, 83113-6, , [facility] ####[facility]ORATORYCLIA [id number] [address] Bilirubin.conjugated [Mass/Vol] mg/dL Normal <0.2 [facility] Comment on above: Order Comment: Speci men Type: BLOOD SPECIMEN Performed By: #### 2 777-1, 36015-2, , [facility] ####[facility]ORATORYCLIA [id number] [address] Protein [Mass/Vol] 5.7 g/dL Low 6.3-8.0 [facility] Comment on above: Order Comment: Speci men Type: BLOOD SPECIMEN Performed By: #### 2 777-1, , , [facility] ####[facility]ORATORYCLIA [id number] [address] LEVETIRACETAMon 06-10-2021 levETIRAcetam [Mass/Vol] 57.7 ug/mL [...] its performance characteristics determined by [facility]'s [facility] Pathology and Laboratory Medicine [place] ( [facility]). It has not been cleared or approved by the FDA. [facility] is regulated under CLIA as qualified to perform high complexity testing. This test is used for clinical purposes. It should not be regarded as investigational or for research. Performed By: #### L EMILYET ####[facility] REFERENCE LABCLIA [id number] [id number] [address] [place] Magnesium SerPl-mCncon 06-10 Magnesium [Mass/Vol] 2.7 mg/dL High 1.7-2.3 [facility] Comment on above: Order Comment: Speci men Type: BLOOD SPECIMEN Performed By: #### 2 777-1, 34834-8, , [facility] ####[facility]ORATORYCLIA [id number] [place] [address] [place] Phosphate SerPl-ncon 06-10 Phosphate [Mass/Vol] 1.8 mg/dL Low 2.7-4.8 [facility] Comment on above: Order Comment: Speci men Type: BLOOD SPECIMEN Performed By: #### 2 777-1, 54461-6, , [facility] ####[facility]ORATORYCLIA [id number] [place] [address] [place] ALLIED HEALTHon 06-09-2021 [...] #### 2 4321-2, 2776-05, ####[facility]ORATORYCLIA [id number] [place] [address] [place] Calcium [Mass/Vol] 8.3 mg/dL Low 8.5-10.2 [facility] Comment on above: Order Comment: Speci men Type: BLOOD SPECIMEN Performed By: #### 2 4321-2, 2776-05, ####[facility]ORATORYCLIA [id number] [place] [address] [place] Chloride [Moles/Vol] 116 mmol/L High 97-105 [facility] Comment on above: Order Comment: Speci men Type: BLOOD SPECIMEN Performed By: #### 2 4321-2, 2776-05, ####[facility]ATORYCLIA [id number] [place] [address] [place] CO2 [Moles/Vol] 27 mmol/L Normal 22-30 [facility] Comment on above: Order Comment: Speci men Type: BLOOD SPECIMEN Performed By: #### 2 4321-2, 2776-05, ####[facility]ORATORYCLIA [id number] [address] [place] Creatinine [Mass/Vol] 0.70 mg/dL Low 0.73-1.22 [facility] Comment on above: Order Comment: Speci men Type: BLOOD SPECIMEN Performed By: #### 2 4321-2, 2776-05, ####[facility]ORATORYCLIA [id number] [address] [place] GFR/1.73 sq M.predicted [...] #### 2 4321-2, 2776-05, ####[facility]ORATORYCLIA [id number] [place] [address] [place] Glucose [Mass/Vol] 123 mg/dL High 74-99 [facility] Comment on above: Order Comment: Speci men Type: BLOOD SPECIMEN Result Comment: The [place] [employer] (ADA) provides guidance for cutoff [...] Standards of Medical Care in Diabetes 2016, [place] [employer]. Diabetes Care. 2016.39(Suppl 1). Performed By: #### 2 4321-2, 2776-05, ####[facility]ORATORYCLIA [id number] [address] STATES OF [facility] Potassium [Moles/Vol] 3.5 mmol/L Low 3.7-5.1 [facility] Comment on above: Order Comment: Speci men Type: BLOOD SPECIMEN Performed By: #### 2 1-2, 2776-05, ####[facility]ORATORYCLIA [id number] [address] STATES [facility] Sodium [Moles/Vol] 151 mmol/L High 136-144 [facility] Comment on above: Order Comment: Speci men Type: BLOOD SPECIMEN Performed By: #### 2 1-2, 2776-05, ####[facility]ORATORYCLIA [id number] [address] [place] Urea nitrogen [Mass/Vol] 39 mg/dL High 9-24 [facility] Comment on above: Order Comment: Speci men Type: BLOOD SPECIMEN Performed By: #### 2 4321-2, 2776-05, ####[facility]ORATORYCLIA [id number] [address] OF [facility] CBC panel Auto (Bld)on 06-09 Erythrocyte distribution width (RBC) [Ratio] 16.2 % High 11.5-15.0 [facility] Comment on above: Order Comment: Speci men Type: BLOOD SPECIMEN Performed By: #### 5 8410-2 ####[facility]ORATORYCLIA [id number] [address] Hematocrit (Bld) [Volume fraction] 33.7 % Low 39.0-51.0 [facility] Comment on above: Order Comment: Speci men Type: BLOOD SPECIMEN Performed By: #### 5 8410-2 ####[facility]ORATORYCLIA [id number] [address] Hemoglobin (Bld) [Mass/Vol] 10.2 g/dL Low 13.0-17.0 [facility] Comment on above: Order Comment: Speci men Type: BLOOD SPECIMEN Performed By: #### 5 8410-2 ####[facility]ATORYCLIA [id number] [address] MCH (RBC) [Entitic mass] 27.4 pg Normal 26.0-34.0 [facility] Comment on above: Order Comment: Speci men Type: BLOOD SPECIMEN Performed By: #### 5 8410-2 ####[facility]ATORYCLIA [id number] [address] MCHC (RBC) [Mass/Vol] 30.3 g/dL Low 30.5-36.0 [facility] Comment on above: Order Comment: Speci men Type: BLOOD SPECIMEN Performed By: #### 5 8410-2 ####[facility]ATORYCLIA [id number] [address] MCV (RBC) [Entitic vol] 90.6 fL Normal 80.0-100.0 [facility] Comment on above: Order Comment: Speci men Type: BLOOD SPECIMEN Performed By: #### 5 8410-2 ####[facility]ATORYCLIA [id number] [address] Nucleated RBC (Bld) [#/Vol] 10*3/uL Normal <0.01 [facility] Comment on above: Order Comment: Speci men Type: BLOOD SPECIMEN Performed By: #### 5 8410-2 ####[facility]ATORYCLIA [id number] [address] Platelet mean volume (Bld) [Entitic vol] 10.3 fL Normal 9.0-12.7 [facility] Comment on above: Order Comment: Speci men Type: BLOOD SPECIMEN Performed By: #### 5 8410-2 ####[facility]ATORYCLIA [id number] [address] Platelets (Bld) [#/Vol] 219 10*3/uL Normal 150-400 [facility] Comment on above: Order Comment: Speci men Type: BLOOD SPECIMEN Performed By: #### 5 8410-2 ####[facility]ATORYCLIA [id number] [address] RBC (Bld) [#/Vol] 3.72 10*6/uL Low 4.20-6.00 [facility] Comment on above: Order Comment: Speci men Type: BLOOD SPECIMEN Performed By: #### 5 8410-2 ####[facility]ATORYCLIA [id number] [address] WBC (Bld) [#/Vol] 13.02 10*3/uL High 3.70-11.00 [facility] Comment on above: Order Comment: Speci men Type: BLOOD SPECIMEN Performed By: #### 5 8410-2 ####[facility]ORATORYCLIA [id number] [address] CONSULT PROGon 06-09-2021 CONSULT PROG Normal [facility] CONSULT PROG Normal [facility] CT BRAIN WO IVCONon 06-09-[address] BRAIN WO IVCON Normal [facility] Magnesium SerPl-mCncon 06-09 Magnesium [Mass/Vol] 2.8 mg/dL High 1.7-2.3 [facility] Comment on above: Order Comment: Speci men Type: BLOOD SPECIMEN Performed By: #### 2 4321-2, 2777-1, 18096-6 ####[facility]ORATORYCLIA [id number] [address] NURSING PROGon 06-09-2021 NURSING PROG Normal [facility] NUTRITIONon 06-09-2021 NUTRITION Normal [facility] PT EDon 06-09-2021 PT ED Normal [facility] Phosphate SerPl-mCncon 06-09 Phosphate [Mass/Vol] 2.2 mg/dL Low 2.7-4.8 [facility] Comment on above: Order Comment: Speci men Type: BLOOD SPECIMEN Performed By: #### 2 4321-2, 2777-1, 95103-0 ####[facility]ORATORYCLIA [id number] [address] Vancomycin random [Mass/Vol] on 06-09-2021 Vancomycin [Mass/Vol] 18.9 ug/mL Normal 10.0-20.0 [facility] Comment on above: Order Comment: Speci men Type: BLOOD SPECIMEN Result Comment: Refe rence ranges and high/low indicator flags are provided as general guidelines only. The treating physician must determine appropriate target levels/dosing based on the specific clinical situation. Performed By: #### 4 091-5 ####[facility]ORATORYCLIA [id number] [address] XR ABD 2V SUPINE W UPR/DECUB [...] Staphylococcus saccharolyticus Identification performed by [facility] [employer] See scanned document for susceptibility report Normal [facility] Comment on above: Performed By: #### 6 462-6, 635-3 ####[facility] LABORATORYCLIA [id number] [place] [address] [place] Bacteria Wnd Culton 06-08-19 22 Bacteria identified Cx Nom (Wound) CULTURE, INTRAOPERATIVE HARDWARE: No growth 5 days GRAM STAIN: Not performed on specimen type Normal [facility] Comment on above: Performed By: #### 6 462-6, 635-3 ####[facility]ORATORYCLIA [id number] [place] [address] [place] Basic metabolic 2000 panelon 06-08-2021 Anion gap [Moles/Vol] 9 mmol/L Normal 9-18 [facility] Comment on above: Order Comment: Speci men Type: BLOOD SPECIMEN Performed By: #### 2 4321-2, 2777-1, ####[facility]ATORYCLIA [id number] [place] [address] [place] Calcium [Mass/Vol] 8.7 mg/dL Normal 8.5-10.2 [facility] Comment on above: Order Comment: Speci men Type: BLOOD SPECIMEN Performed By: #### 2 4321-2, 2777-, ####[facility]ATORYCLIA [id number] [place] [address] [place] Chloride [Moles/Vol] 113 mmol/L High 97-105 [facility] Comment on above: Order Comment: Speci men Type: BLOOD SPECIMEN Performed By: #### 2 4321-2, 2776-05, ####[facility]ORATORYCLIA [id number] [place] [address] [place] CO2 [Moles/Vol] 26 mmol/L Normal 22-30 [facility] Comment on above: Order Comment: Speci men Type: BLOOD SPECIMEN Performed By: #### 2 4321-2, 2776-05, ####[facility]ORATORYCLIA [id number] [place] [address] [place] Creatinine [Mass/Vol] 0.68 mg/dL Low 0.73-1.22 [facility] Comment on above: Order Comment: Speci men Type: BLOOD SPECIMEN Performed By: #### 2 4321-2, 2776-05, ####[facility]ORATORYCLIA [id number] [address] [place] GFR/1.73 sq M.predicted [...] #### 2 4321-2, 2776-05, ####[facility]ORATORYCLIA [id number] [place] [address] [place] Glucose [Mass/Vol] 146 mg/dL High 74-99 [facility] Comment on above: Order Comment: Speci men Type: BLOOD SPECIMEN Result Comment: The [place] [employer] (ADA) provides guidance for cutoff [...] Standards of Medical Care in Diabetes 2016, [place] [employer]. Diabetes Care. 2016.39(Suppl 1). Performed By: #### 2 4321-2, 2776-05, ####[facility]ORATORYCLIA [id number] [address] STATES OF [facility] Potassium [Moles/Vol] 3.6 mmol/L Low 3.7-5.1 [facility] Comment on above: Order Comment: Speci men Type: BLOOD SPECIMEN Performed By: #### 2 1-2, 2776-05, ####[facility]ORATORYCLIA [id number] [address] STATES [facility] Sodium [Moles/Vol] 148 mmol/L High 136-144 [facility] Comment on above: Order Comment: Speci men Type: BLOOD SPECIMEN Performed By: #### 2 4321-2, 2776-05, ####[facility]ORATORYCLIA [id number] [address] [place] Urea nitrogen [Mass/Vol] 36 mg/dL High 9-24 [facility] Comment on above: Order Comment: Speci men Type: BLOOD SPECIMEN Performed By: #### 2 4321-2, 2776-05, ####[facility]ORATORYCLIA [id number] [address] OF [facility] CASE MANAGEMon 06-08-2021 CASE MANAGEM Normal [facility] CBC panel Auto (Bld)on 06-08 Erythrocyte distribution width (RBC) [Ratio] 16.0 % High 11.5-15.0 [facility] Comment on above: Order Comment: Speci men Type: BLOOD SPECIMEN Performed By: #### 5 8410-2 ####[facility]ORATORYCLIA [id number] [address] Hematocrit (Bld) [Volume fraction] 38.4 % Low 39.0-51.0 [facility] Comment on above: Order Comment: Speci men Type: BLOOD SPECIMEN Performed By: #### 5 8410-2 ####[facility]ORY[facility] [id number] [address] Hemoglobin (Bld) [Mass/Vol] 12.1 g/dL Low 13.0-17.0 [facility] Comment on above: Order Comment: Speci men Type: BLOOD SPECIMEN Performed By: #### 5 8410-2 ####[facility]ORYCL[facility] [id number] [address] MCH (RBC) [Entitic mass] 28.3 pg Normal 26.0-34.0 [facility] Comment on above: Order Comment: Speci men Type: BLOOD SPECIMEN Performed By: #### 5 8410-2 ####[facility]ORYCL[facility] [id number] [address] MCHC (RBC) [Mass/Vol] 31.5 g/dL Normal 30.5-36.0 [facility] Comment on above: Order Comment: Speci men Type: BLOOD SPECIMEN Performed By: #### 5 8410-2 ####[facility]ORYCL[facility] [id number] [address] MCV (RBC) [Entitic vol] 89.9 fL Normal 80.0-100.0 [facility] Comment on above: Order Comment: Speci men Type: BLOOD SPECIMEN Performed By: #### 5 8410-2 ####[facility]ORY[facility] [id number] [address] Nucleated RBC (Bld) [#/Vol] 10*3/uL Normal <0.01 [facility] Comment on above: Order Comment: Speci men Type: BLOOD SPECIMEN Performed By: #### 5 8410-2 ####[facility]ORYCL[facility] [id number] [address] [address] Platelet mean volume (Bld) [Entitic vol] 10.3 fL Normal 9.0-12.7 [facility] Comment on above: Order Comment: Speci men Type: BLOOD SPECIMEN Performed By: #### 5 8410-2 ####[facility]ATORYCLIA [id number] [address] STATES [facility] Platelets (Bld) [#/Vol] 236 10*3/uL Normal 150-400 [facility] Comment on above: Order Comment: Speci men Type: BLOOD SPECIMEN Performed By: #### 5 8410-2 ####[facility]ATORYCLIA [id number] [address] RBC (Bld) [#/Vol] 4.27 10*6/uL Normal 4.20-6.00 [facility] Comment on above: Order Comment: Speci men Type: BLOOD SPECIMEN Performed By: #### 5 8410-2 ####[facility]ORYCLIA [id number] [address] WBC (Bld) [#/Vol] 11.06 10*3/uL High 3.70-11.00 [facility] Comment on above: Order Comment: Speci men Type: BLOOD SPECIMEN Performed By: #### 5 8410-2 ####[facility]ATORYCLIA [id number] [address] CONSULT PROGon 06-08-2021 CONSULT PROG Normal [facility] CT BRAIN WO IVCONon 06-08-[address] BRAIN WO IVCON Normal [facility] Magnesium SerPl-mCncon 06-08 Magnesium [Mass/Vol] 2.8 mg/dL High 1.7-2.3 [facility] Comment on above: Order Comment: Speci men Type: BLOOD SPECIMEN Performed By: #### 2 4321-2, 2777-1, 94986-3 ####[facility]ATORYCLIA [id number] [address] Microorganism Spec Culton Microorganism identified Cx Nom (Unsp spec) CULTURE, FUNGAL: No Fungus isolated after 28 days FUNGAL SMEAR: No fungus seen Normal [facility] Comment on above: Performed By: #### 1 1475-1 ####[facility]ORYCLIA [id number] [address] NURSING PROGon 06-08-2021 NURSING PROG Normal [facility] OPERATIVE NOon 06-08-2021 OPERATIVE NO Normal [facility] OPERATIVE NO [facility] PT panel Coag (PPP)on 2021 INR Coag (PPP) [Relative time] 1.1 {INR} Normal 0.9-1.3 [facility] Comment on above: Order Comment: Speci men Type: BLOOD SPECIMEN Result Comment: Yris min K Antagonist (VKA) Therapeutic Range: INR 2 to 3 (Target INR of 2.5)Note: For patients treated with VKA drugs, such as warfarin, the [place] [employer] 2012 Guideline recommends [...] al. Chest 2012, 141:7S-47SAlba MURRY et al. [facility] 2017, 70: 252-289 Performed By: #### 3 4528-0, 20993-1 ####[facility]ATORYCLIA [id number] PT Coag (PPP) [Time] 11.9 s Normal 9.7-13.0 [facility] Comment on above: Order Comment: Speci men Type: BLOOD SPECIMEN Performed By: #### 3 4528-0, 86858-4 ####[facility]ATORYCLIA [id number] [address] OF [facility] Phosphate SerPl-mCncon 06-08 Phosphate [Mass/Vol] 2.3 mg/dL Low 2.7-4.8 [facility] Comment on above: Order Comment: Speci men Type: BLOOD SPECIMEN Performed By: #### 2 4321-2, 2777-1, 88649-9 ####[facility]ORYCLIA [id number] [address] aPTT PPPon 06-08-2021 aPTT Coag (PPP) [Time] 24.2 s Normal 23.0-32.4 [facility] Comment on above: Order Comment: Speci men Type: BLOOD SPECIMEN Performed By: #### 3 4528-0, 21151-0 ####[facility]ATORYCLIA [id number] [address] OF [facility] ALLIED HEALTHon 06-07-2021 ALLIED HEALTH Normal [...] Performed By: #### 6 06-4 ####[facility]ORYCLIA [id number] [address] OF [facility] Basic metabolic 2000 panelon 06-07-2021 Anion gap [Moles/Vol] 9 mmol/L Normal 9-18 [facility] Comment on above: Order Comment: Speci men Type: BLOOD SPECIMEN Performed By: #### 1 9123-9, 2777-1, 74434-8 ####[facility]ATORYCLIA [id number] [address] STATES OF [facility] Calcium [Mass/Vol] 8.8 mg/dL Normal 8.5-10.2 [facility] Comment on above: Order Comment: Speci men Type: BLOOD SPECIMEN Performed By: #### 1 9123-9, 2777-1, 33475-5 ####[facility]ATORYCLIA [id number] [address] [place] Chloride [Moles/Vol] 111 mmol/L High 97-105 [facility] Comment on above: Order Comment: Speci men Type: BLOOD SPECIMEN Performed By: #### 1 9123-9, 2776-05, 27451-0 ####[facility]ORYCLIA [id number] [address] CO2 [Moles/Vol] 27 mmol/L Normal 22-30 [facility] Comment on above: Order Comment: Speci men Type: BLOOD SPECIMEN Performed By: #### 1 9123-9, 27711-04, 50086-5 ####[facility]ORYCLIA [id number] [address] OF [facility] Creatinine [Mass/Vol] 0.66 mg/dL Low 0.73-1.22 [facility] Comment on above: Order Comment: Speci men Type: BLOOD SPECIMEN Performed By: #### 1 9123-9, 2777, 91286-9 ####[facility]ATORYCLIA [id number] [address] [place] GFR/1.73 sq M.predicted [...] GFR. Performed By: #### 1 9123-9, 2776-05, 18768-9 ####[facility]ATORYCLIA [id number] [place] [address] [place] Glucose [Mass/Vol] 123 mg/dL High 74-99 [facility] Comment on above: Order Comment: Speci men Type: BLOOD SPECIMEN Result Comment: The [place] Diabetes Association (ADA) provides guidance for cutoff [...] Standards of Medical Care in Diabetes 2016, [place] [employer]. Diabetes Care. 2016.39(Suppl 1). Performed By: #### 1 9123-9, 2776-05, ####[facility]ATORYCLIA [id number] [address] STATES OF [facility] Potassium [Moles/Vol] 3.6 mmol/L Low 3.7-5.1 [facility] Comment on above: Order Comment: Speci men Type: BLOOD SPECIMEN Performed By: #### 1 9123-9, 2776-05, 45931-9 ####[facility]ATORYCLIA [id number] [address] [place] Sodium [Moles/Vol] 147 mmol/L High 136-144 [facility] Comment on above: Order Comment: Speci men Type: BLOOD SPECIMEN Performed By: #### 1 9123-9, 2777-1, 61217-5 ####[facility]ORYCLIA [id number] [address] [place] Urea nitrogen [Mass/Vol] 30 mg/dL High 9-24 [facility] Comment on above: Order Comment: Speci men Type: BLOOD SPECIMEN Performed By: #### 1 9123-9, 2777-1, 41220-1 ####[facility]ORYCLIA [id number] [address] STATES [facility] CBC W Auto Differential pane l (Bld)on 06-07-2021 Basophils (Bld) [#/Vol] 10*3/uL Normal <0.11 [facility] Comment on above: Order Comment: Speci men Type: BLOOD SPECIMEN Performed By: #### 5 7021-8 ####[facility]ORYCLIA [id number] [address] Basophils/100 WBC (Bld) 0.2 % Normal [facility] Comment on above: Order Comment: Speci men Type: BLOOD SPECIMEN Performed By: #### 5 7021-8 ####[facility]ORYCLIA [id number] [address] Differential cell count method Nom (Bld) Auto Normal [facility] Comment on above: Order Comment: Speci men Type: BLOOD SPECIMEN Performed By: #### 5 7021-8 ####[facility]ORYCLIA [id number] [address] [place] Eosinophils (Bld) [#/Vol] 0.06 10*3/uL Normal <0.46 [facility] Comment on above: Order Comment: Speci men Type: BLOOD SPECIMEN Performed By: #### 5 7021-8 ####[facility]ATORYCLIA [id number] [address] Eosinophils/100 WBC (Bld) 0.6 % Normal [facility] Comment on above: Order Comment: Speci men Type: BLOOD SPECIMEN Performed By: #### 5 7021-8 ####[facility]ATORYCLIA [id number] [address] Erythrocyte distribution width (RBC) [Ratio] 15.8 % High 11.5-15.0 [facility] Comment on above: Order Comment: Speci men Type: BLOOD SPECIMEN Performed By: #### 5 7021-8 ####[facility]ATORYCLIA [id number] [address] Hematocrit (Bld) [Volume fraction] 40.4 % Normal 39.0-51.0 [facility] Comment on above: Order Comment: Speci men Type: BLOOD SPECIMEN Performed By: #### 5 7021-8 ####[facility]ATORYCLIA [id number] [address] Hemoglobin (Bld) [Mass/Vol] 12.4 g/dL Low 13.0-17.0 [facility] Comment on above: Order Comment: Speci men Type: BLOOD SPECIMEN Performed By: #### 5 7021-8 ####[facility]ATORYCLIA [id number] [address] IMMATURE GRAN % 0.7 % Normal [facility] Comment on above: Order Comment: Speci men Type: BLOOD SPECIMEN Performed By: #### 5 7021-8 ####[facility]ATORYCLIA [id number] [address] IMMATURE GRAN ABS 0.07 k/uL Normal <0.10 [facility] Comment on above: Order Comment: Speci men Type: BLOOD SPECIMEN Performed By: #### 5 7021-8 ####[facility]ATORYCLIA [id number] [address] Lymphocytes (Bld) [#/Vol] 1.43 10*3/uL Normal 1.00-4.00 [facility] Comment on above: Order Comment: Speci men Type: BLOOD SPECIMEN Performed By: #### 5 7021-8 ####[facility]ATORYCLIA [id number] [address] Lymphocytes/100 WBC (Bld) 14.1 % Normal [facility] Comment on above: Order Comment: Speci men Type: BLOOD SPECIMEN Performed By: #### 5 7021-8 ####[facility]ATORYCLIA [id number] [address] MCH (RBC) [Entitic mass] 27.6 pg Normal 26.0-34.0 [facility] Comment on above: Order Comment: Speci men Type: BLOOD SPECIMEN Performed By: #### 5 7021-8 ####[facility]ATORYCLIA [id number] [address] MCHC (RBC) [Mass/Vol] 30.7 g/dL Normal 30.5-36.0 [facility] Comment on above: Order Comment: Speci men Type: BLOOD SPECIMEN Performed By: #### 5 7021-8 ####[facility]ORYCLIA [id number] [address] MCV (RBC) [Entitic vol] 89.8 fL Normal 80.0-100.0 [facility] Comment on above: Order Comment: Speci men Type: BLOOD SPECIMEN Performed By: #### 5 7021-8 ####[facility]ATORYCLIA [id number] [address] Monocytes (Bld) [#/Vol] 0.82 10*3/uL Normal <0.87 [facility] Comment on above: Order Comment: Speci men Type: BLOOD SPECIMEN Performed By: #### 5 7021-8 ####[facility]ATORYCLIA [id number] [address] Monocytes/100 WBC (Bld) 8.1 % Normal [facility] Comment on above: Order Comment: Speci men Type: BLOOD SPECIMEN Performed By: #### 5 7021-8 ####[facility]ATORYCLIA [id number] [address] Neutrophils (Bld) [#/Vol] 7.74 10*3/uL High 1.45-7.50 [facility] Comment on above: Order Comment: Speci men Type: BLOOD SPECIMEN Performed By: #### 5 7021-8 ####[facility]ORATORYCLIA [id number] [address] Neutrophils/100 WBC (Bld) 76.3 % Normal [facility] Comment on above: Order Comment: Speci men Type: BLOOD SPECIMEN Performed By: #### 5 7021-8 ####[facility]ATORYCLIA [id number] [address] Nucleated RBC (Bld) [#/Vol] 10*3/uL Normal <0.01 [facility] Comment on above: Order Comment: Speci men Type: BLOOD SPECIMEN Performed By: #### 5 7021-8 ####[facility]ATORYCLIA [id number] [address] Nucleated RBC/100 WBC (Bld) [Ratio] 0.0 /100 WBC Normal 0.0 [facility] Comment on above: Order Comment: Speci men Type: BLOOD SPECIMEN Performed By: #### 5 7021-8 ####[facility]ORATORYCLIA [id number] [address] Platelet mean volume (Bld) [Entitic vol] 10.4 fL Normal 9.0-12.7 [facility] Comment on above: Order Comment: Speci men Type: BLOOD SPECIMEN Performed By: #### 5 7021-8 ####[facility]ORATORYCLIA [id number] [address] Platelets (Bld) [#/Vol] 236 10*3/uL Normal 150-400 [facility] Comment on above: Order Comment: Speci men Type: BLOOD SPECIMEN Performed By: #### 5 7021-8 ####[facility]ORYCLIA [id number] [address] RBC (Bld) [#/Vol] 4.50 10*6/uL Normal 4.20-6.00 [facility] Comment on above: Order Comment: Speci men Type: BLOOD SPECIMEN Performed By: #### 5 7021-8 ####[facility]ATORYCLIA [id number] [address] WBC (Bld) [#/Vol] 10.14 10*3/uL Normal 3.70-11.00 [facility] Comment on above: Order Comment: Speci men Type: BLOOD SPECIMEN Performed By: #### 5 7021-8 ####[facility]ATORYCLIA [id number] [address] CBC panel Auto (Bld)on 06-07 Erythrocyte distribution width (RBC) [Ratio] 15.8 % High 11.5-15.0 [facility] Comment on above: Order Comment: Speci men Type: BLOOD SPECIMEN Performed By: #### 5 8410-2 ####[facility]ATORYCLIA [id number] [address] Hematocrit (Bld) [Volume fraction] 40.0 % Normal 39.0-51.0 [facility] Comment on above: Order Comment: Speci men Type: BLOOD SPECIMEN Performed By: #### 5 8410-2 ####[facility]ATORYCLIA [id number] [address] Hemoglobin (Bld) [Mass/Vol] 12.3 g/dL Low 13.0-17.0 [facility] Comment on above: Order Comment: Speci men Type: BLOOD SPECIMEN Performed By: #### 5 8410-2 ####[facility]ATORYCLIA [id number] [address] MCH (RBC) [Entitic mass] 27.3 pg Normal 26.0-34.0 [facility] Comment on above: Order Comment: Speci men Type: BLOOD SPECIMEN Performed By: #### 5 8410-2 ####[facility]ATORYCLIA [id number] [address] MCHC (RBC) [Mass/Vol] 30.8 g/dL Normal 30.5-36.0 [facility] Comment on above: Order Comment: Speci men Type: BLOOD SPECIMEN Performed By: #### 5 8410-2 ####[facility]ATORYCLIA [id number] [address] MCV (RBC) [Entitic vol] 88.7 fL Normal 80.0-100.0 [facility] Comment on above: Order Comment: Speci men Type: BLOOD SPECIMEN Performed By: #### 5 8410-2 ####[facility]ATORYCLIA [id number] [address] Nucleated RBC (Bld) [#/Vol] 10*3/uL Normal <0.01 [facility] Comment on above: Order Comment: Speci men Type: BLOOD SPECIMEN Performed By: #### 5 8410-2 ####[facility]ATORYCLIA [id number] [address] Platelet mean volume (Bld) [Entitic vol] 10.0 fL Normal 9.0-12.7 [facility] Comment on above: Order Comment: Speci men Type: BLOOD SPECIMEN Performed By: #### 5 8410-2 ####[facility]ATORYCLIA [id number] [address] Platelets (Bld) [#/Vol] 234 10*3/uL Normal 150-400 [facility] Comment on above: Order Comment: Speci men Type: BLOOD SPECIMEN Performed By: #### 5 8410-2 ####[facility]ATORYCLIA [id number] [address] RBC (Bld) [#/Vol] 4.51 10*6/uL Normal 4.20-6.00 [facility] Comment on above: Order Comment: Speci men Type: BLOOD SPECIMEN Performed By: #### 5 8410-2 ####[facility]ORATORYCLIA [id number] [place] [address] [place] WBC (Bld) [#/Vol] 11.47 10*3/uL High 3.70-11.00 [facility] Comment on above: Order Comment: Speci men Type: BLOOD SPECIMEN Performed By: #### 5 8410-2 ####[facility]ORATORYCLIA [id number] [address] [place] CONSULT PROGon 06-07-2021 CONSULT PROG Normal [facility] CONSULT PROG Normal [facility] CSF MANUAL DIFFon 06-07-2021 DIF TTL, CSF 92 cells counted Normal [facility] Comment on above: Order Comment: Speci men Type: CEREBROSPINAL FLUID Performed By: #### 3 4563-7, [id number], [id number] ####[facility]ATORYCLIA [id number] [address] [place] EOSIN%, CSF 1 % Normal [facility] Comment on above: Order Comment: Speci men Type: CEREBROSPINAL FLUID Performed By: #### 3 4563-7, [id number], [id number] ####[facility]ATORYCLIA [id number] [place], [place] [address] [place] [address] [place] LYMPH%, CSF 21 % Low 50-90 [facility] Comment on above: Order Comment: Speci men Type: CEREBROSPINAL FLUID Performed By: #### 3 4563-7, [id number], [id number] ####[facility]ATORYCLIA [id number] [address] [place] MACRO%, CSF 27 % High <1 [facility] Comment on above: Order Comment: Speci men Type: CEREBROSPINAL FLUID Result Comment: Tati ected result: Previously reported as 22 % on 06/07/2021 at 1:49 PM EST. Performed By: #### 3 4563-7, [id number], WPN6910 ####[facility]ORYCLIA [id number] [place], [place] [address] [place] [address] [place] MONO%, CSF 36 % Normal 10-50 [facility] Comment on above: Order Comment: Speci men Type: CEREBROSPINAL FLUID Performed By: #### 3 4563-7, KKB2912, [id number] ####[facility]ATORYCLIA [id number] [address] NEUT%, CSF 11 % High 0-3 [facility] Comment on above: Order Comment: Speci men Type: CEREBROSPINAL FLUID Performed By: #### 3 4563-7, [id number], [id number] ####[facility]ATORYCLIA [id number] [address] OTHER CL%, CSF 4 % Normal [facility] Comment on above: Order Comment: Speci men Type: CEREBROSPINAL FLUID Result Comment: Path review to follow.Corrected result: Previously reported as 10 % on 06/07/2021 at 1:49 PM EST. Performed By: #### 3 4563-7, YGE0074, [id number] ####[facility]ORATORYCLIA [id number] [address] CSF PATHOLOGIST INTERP (LAB REFLEX ORDER-NO BILL)on 06-07-2021 CSF STAFF REVIEW Negative for maligna nt cells. Rare immature myeloid or ventricular lining cells. Normal [facility] Comment on above: Order Comment: Speci men Type: CEREBROSPINAL FLUID Performed By: #### 3 4563-7, CUQ0159, DRW9171 ####[facility]ATORYCLIA [id number] [address] Pathologist name Reviewed by Eloise rebolledo MD Normal [facility] Comment on above: Order Comment: Speci men Type: CEREBROSPINAL FLUID Performed By: #### 3 4563-7, JWA1930, [id number] ####[facility]ATORYCLIA [id number] [address] BRAIN WO IVCONon 06-07-19 CT BRAIN WO IVCON Normal [facility] CT BRAIN WO IVCON Normal [facility] Cell count panel (CSF)on Clarity (CSF) Clear Normal Clear [facility] Comment on above: Order Comment: Speci men Type: CEREBROSPINAL FLUID Performed By: #### 3 4563-7, [id number], [id number] ####[facility]ORYCLIA [id number] [address] Clarity (Unsp spec) Not Indicated Normal Clear [facility] Comment on above: Order Comment: Speci men Type: CEREBROSPINAL FLUID Performed By: #### 3 4563-7, [id number], GHR7786 ####[facility]ORYCLIA [id number] [address] Color (CSF) Colorless Normal Colorless [facility] Comment on above: Order Comment: Speci men Type: CEREBROSPINAL FLUID Performed By: #### 3 4563-7, SJC2441, [id number] ####[facility]ORYCLIA [id number] [address] Color (Spun CSF) Not Indicated Normal Colorless [facility] Comment on above: Order Comment: Speci men Type: CEREBROSPINAL FLUID Performed By: #### 3 4563-7, [id number], TVR0315 ####[facility]ORYCLIA [id number] [address] CSF TUBE NUMBER Sterile Container Normal [facility] Comment on above: Order Comment: Speci men Type: CEREBROSPINAL FLUID Performed By: #### 3 4563-7, [id number], SAO8608 ####[facility]ORYCLIA [id number] [address] RBC Manual cnt (CSF) [#/Vol] 42 cells/uL High 0-5 [facility] Comment on above: Order Comment: Speci men Type: CEREBROSPINAL FLUID Performed By: #### 3 4563-7, QFY5999, [id number] ####[facility]ORYCLIA [id number] [address] WBC Manual cnt (CSF) [#/Vol] 1 cells/uL Normal 0-5 [facility] Comment on above: Order Comment: Speci men Type: CEREBROSPINAL FLUID Performed By: #### 3 4563-7, [id number], [id number] ####[facility]ATORYCLIA [id number] [place] [address] [place] Glucose CSF-mCncon 2 [...] Glucose HK (GLUC3) [package insert V 12.0 Peruvian]. Kimberley Iqua, [place], [place]. September 2015. 2. Michelle Moore, Loki H. (2015). Chapter 7: Glucose and Lactate. Marianela Rothman.(eds.), Cerebrospinal Fluid in Clinical Neurology. [place]: [employer]. Performed By: #### 2 880-3, 2342-4 ####[facility]ORATORYCLIA [id number] [address] [place] Lactate (Bld) [Moles/Vol]on 06-07-2021 Lactate [Moles/Vol] 0.9 mmol/L Normal 0.5-2.2 [facility] Comment on above: Order Comment: Speci men Type: BLOOD SPECIMEN Performed By: #### 3 2693-4 ####[facility]ATORYCLIA [id number] [address] [place] Lipase SerPl-cCncon 06-07-19 22 Lipase [Catalytic activity/Vol] 35 U/L Normal 16-61 [facility] Comment on above: Order Comment: Speci men Type: BLOOD SPECIMEN Performed By: #### 3 040-3, PROCAL ####[facility]ATORYCLIA [id number] [address] [place] Magnesium SerPl-ncon 06-07 Magnesium [Mass/Vol] 2.7 mg/dL High 1.7-2.3 [facility] Comment on above: Order Comment: Speci men Type: BLOOD SPECIMEN Performed By: #### 1 9123-9, 2777-1, 18194-5 ####[facility]ORATORYCLIA [id number] [address] PROCALCITONIN (LAB)on 2021 Procalcitonin [Mass/Vol] 0.13 ng/mL High <0.09 [facility] Comment on above: Order Comment: Speci men Type: BLOOD SPECIMEN Result Comment: For a guided interpretation of test results, please visit the Change in Procalcitonin Calculator, [email or web address]. Performed By: #### 3 040-3, PROCAL ####[facility]ORATORYCLIA [id number] [address] Phosphate SerPl-ncon 06-07 Phosphate [Mass/Vol] 1.9 mg/dL Low 2.7-4.8 [facility] Comment on above: Order Comment: Speci men Type: BLOOD SPECIMEN Performed By: #### 1 9123-9, 2777-1, 51653-5 ####[facility]ATORYCLIA [id number] [address] Prot CSF-ncon 06-07-2021 Protein (CSF) [Mass/Vol] 33 mg/dL Normal 15-45 [facility] Comment on above: Order Comment: Speci men Type: CEREBROSPINAL FLUID Performed By: #### 2 880-3, 2342-4 ####[facility]ORYCL[facility] [id number] [address] [facility] SARS-CoV-2 RNA Resp Ql MEGAN+p robeon 06-07-2021 SARS-CoV-2 (COVID-19) RNA MEGAN+probe Ql (Resp) COVID 19 RESULT: SARS-CoV-2 (Agent of COVID-19) Not Detected by PCR. This test has been authorized by FDA under an Emergency Use Authorization (EUA). Normal [facility] Comment on above: Performed By: #### 9 4500-6 ####[facility]ORY[facility] [id number] [address] TYPE AND SCREENon 06-07-2021 ABO O Normal [facility] Comment on above: Order Comment: Speci men Type: BLOOD SPECIMEN Performed By: #### T SCR ####[facility] BANKCLIA [id number] [address] HISTORICAL AB SCR STATUS Negative Normal [facility] Comment on above: Order Comment: Speci men Type: BLOOD SPECIMEN Performed By: #### T SCR ####[facility]ANKCL[facility] [id number] [address] Rh Nom (Bld) Positive Normal [facility] Comment on above: Order Comment: Speci men Type: BLOOD SPECIMEN Performed By: #### T SCR ####[facility]ANKCL[facility] [id number] [address] TYPE AND SCREEN EXPIRATION 06/10/2021 23:59 Normal [facility] Comment on above: Order Comment: Speci men Type: BLOOD SPECIMEN Performed By: #### T SCR ####[facility] BLOOD BANKCLIA [id number] [address] Vancomycin random [Mass/Vol] on 06-07-2021 Vancomycin [Mass/Vol] 16.5 ug/mL Normal 10.0-20.0 [facility] Comment on above: Order Comment: Speci men Type: BLOOD SPECIMEN Result Comment: Refe rence ranges and high/low indicator flags are provided as general guidelines only. The treating physician must determine appropriate target levels/dosing based on the specific clinical situation. Performed By: #### 4 091-5 ####[facility] LABORATORYCLIA [id number] [address] XR CHEST 1V FRONTAL PORTon 0 06-07-2021 XR CHEST 1V FRONTAL PORT Normal [facility] Basic metabolic 2000 panelon 06-06-2021 Anion gap [Moles/Vol] 11 mmol/L Normal 9-18 [facility] Comment on above: Order Comment: Speci men Type: BLOOD SPECIMEN Performed By: #### 2 4321-2, , 2776-05 ####[facility] LABORATORYCLIA [id number] [place], [place] [id number] [place] [address] [place] Calcium [Mass/Vol] 8.6 mg/dL Normal 8.5-10.2 [facility] Comment on above: Order Comment: Speci men Type: BLOOD SPECIMEN Performed By: #### 2 4321-2, , 2776-05 ####[facility] LABORATORYCLIA [id number] [address] STATES OF [facility] Chloride [Moles/Vol] 108 mmol/L High 97-105 [facility] Comment on above: Order Comment: Speci men Type: BLOOD SPECIMEN Performed By: #### 2 4321-2, , 2776-05 ####[facility] LABORATORYCLIA [id number] [address] [place] CO2 [Moles/Vol] 25 mmol/L Normal 22-30 [facility] Comment on above: Order Comment: Speci men Type: BLOOD SPECIMEN Performed By: #### 2 4321-2, , 2776-05 ####[facility] LABORATORYCLIA [id number] [address] [place] Creatinine [Mass/Vol] 0.76 mg/dL Normal 0.73-1.22 [facility] Comment on above: Order Comment: Speci men Type: BLOOD SPECIMEN Performed By: #### 2 4321-2, , 2776-05 ####[facility] LABORATORYCLIA [id number] [address] [place] GFR/1.73 sq M.predicted [...] has been calibrated to be traceable to IDND. An eGFR <60 mL/min/1.73m2 for >3 months is consistent with chronic kidney disease. Refer to KDOQI guidelines for clinical interpretation. In patients with unstable renal function, e.g. those with acute kidney injury, the eGFR may not accurately reflect actual GFR. Performed By: #### 2 1-2, , 2776-05 ####[facility] LABORATORYCLIA [id number] [place] [address] [place] Glucose [Mass/Vol] 116 mg/dL High 74-99 [facility] Comment on above: Order Comment: Speci men Type: BLOOD SPECIMEN Result Comment: The [place] [employer] (ADA) provides guidance for cutoff [...] Standards of Medical Care in Diabetes 2016, [place] [employer]. Diabetes Care. 2016.39(Suppl 1). Performed By: #### 2 4320-2, , 2776-05 ####[facility] LABORATORYCLIA [id number] [address] [place] Potassium [Moles/Vol] 3.5 mmol/L Low 3.7-5.1 [facility] Comment on above: Order Comment: Speci men Type: BLOOD SPECIMEN Performed By: #### 2 4320-2, , 2776-05 ####[facility] LABORATORYCLIA [id number] [address] [place] Sodium [Moles/Vol] 144 mmol/L Normal 136-144 [facility] Comment on above: Order Comment: Speci men Type: BLOOD SPECIMEN Performed By: #### 2 4321-2, , 2776-05 ####[facility] LABORATORYCLIA [id number] [address] STATES [facility] Urea nitrogen [Mass/Vol] 31 mg/dL High 9-24 [facility] Comment on above: Order Comment: Speci men Type: BLOOD SPECIMEN Performed By: #### 2 4321-2, 75215-8, 2776-05 ####[facility] LABORATORYCLIA [id number] [address] CASE MANAGEMon 06-06-2021 CASE MANAGEM Normal [facility] CBC panel Auto (Bld)on 06-06 Erythrocyte distribution width (RBC) [Ratio] 15.8 % High 11.5-15.0 [facility] Comment on above: Order Comment: Speci men Type: BLOOD SPECIMEN Performed By: #### 5 8410-2 ####[facility] LABORATORYCLIA [id number] [address] Hematocrit (Bld) [Volume fraction] 39.5 % Normal 39.0-51.0 [facility] Comment on above: Order Comment: Speci men Type: BLOOD SPECIMEN Performed By: #### 5 8410-2 ####[facility] LABORATORYCLIA [id number] [address] Hemoglobin (Bld) [Mass/Vol] 12.2 g/dL Low 13.0-17.0 [facility] Comment on above: Order Comment: Speci men Type: BLOOD SPECIMEN Performed By: #### 5 8410-2 ####[facility] LABORATORYCLIA [id number] [address] MCH (RBC) [Entitic mass] 27.8 pg Normal 26.0-34.0 [facility] Comment on above: Order Comment: Speci men Type: BLOOD SPECIMEN Performed By: #### 5 8410-2 ####[facility] LABORATORYCLIA [id number] [address] MCHC (RBC) [Mass/Vol] 30.9 g/dL Normal 30.5-36.0 [facility] Comment on above: Order Comment: Speci men Type: BLOOD SPECIMEN Performed By: #### 5 8410-2 ####[facility] LABORATORYCLIA [id number] [address] MCV (RBC) [Entitic vol] 90.0 fL Normal 80.0-100.0 [facility] Comment on above: Order Comment: Speci men Type: BLOOD SPECIMEN Performed By: #### 5 8410-2 ####[facility] LABORATORYCLIA [id number] [address] Nucleated RBC (Bld) [#/Vol] 10*3/uL Normal <0.01 [facility] Comment on above: Order Comment: Speci men Type: BLOOD SPECIMEN Performed By: #### 5 8410-2 ####[facility] LABORATORYCLIA [id number] [address] Platelet mean volume (Bld) [Entitic vol] 10.4 fL Normal 9.0-12.7 [facility] Comment on above: Order Comment: Speci men Type: BLOOD SPECIMEN Performed By: #### 5 8410-2 ####[facility] LABORATORYCLIA [id number] [address] Platelets (Bld) [#/Vol] 236 10*3/uL Normal 150-400 [facility] Comment on above: Order Comment: Speci men Type: BLOOD SPECIMEN Performed By: #### 5 8410-2 ####[facility] LABORATORYCLIA [id number] [address] RBC (Bld) [#/Vol] 4.39 10*6/uL Normal 4.20-6.00 [facility] Comment on above: Order Comment: Speci men Type: BLOOD SPECIMEN Performed By: #### 5 8410-2 ####[facility] LABORATORYCLIA [id number] [address] WBC (Bld) [#/Vol] 9.74 10*3/uL Normal 3.70-11.00 [facility] Comment on above: Order Comment: Speci men Type: BLOOD SPECIMEN Performed By: #### 5 8410-2 ####[facility] LABORATORYCLIA [id number] [place] [id number] [facility] CONSULT PROGon 06-06-2021 CONSULT PROG Normal [facility] CONSULT PROG Normal [facility] Magnesium SerPl-mCncon 06-06 Magnesium [Mass/Vol] 2.5 mg/dL High 1.7-2.3 [facility] Comment on above: Order Comment: Speci men Type: BLOOD SPECIMEN Performed By: #### 2 4321-2, 52664-3, 2777-1 ####[facility] LABORATORYCLIA [id number] [address] PT panel Coag (PPP)on 2021 INR Coag (PPP) [Relative time] 1.0 {INR} Normal 0.9-1.3 [facility] Comment on above: Order Comment: Speci men Type: BLOOD SPECIMEN Result Comment: Yris min K Antagonist (VKA) Therapeutic Range: INR 2 to 3 (Target INR of 2.5)Note: For patients treated with VKA drugs, such as warfarin, the [place] [employer] 2012 Guideline recommends [...] al. Chest 2012, 141:7S-47SAlba MURRY, et al. [facility] 2017, 70: 252-289 Performed By: #### 3 4528-0, 23121-5 ####[facility] LABORATORYCLIA [id number] [address] PT Coag (PPP) [Time] 11.4 s Normal 9.7-13.0 [facility] Comment on above: Order Comment: Speci men Type: BLOOD SPECIMEN Performed By: #### 3 4528-0, 23220-0 ####[facility] LABORATORYCLIA [id number] [address] Phosphate SerPl-mCncon 06-06 Phosphate [Mass/Vol] 2.3 mg/dL Low 2.7-4.8 [facility] Comment on above: Order Comment: Speci men Type: BLOOD SPECIMEN Performed By: #### 2 4321-2, 86870-4, 2777-1 ####[facility] LABORATORYCLIA [id number] [address] THROMBOGRAPH HEPARINASE PANE Kiel 06-06-2021 Clot angle after addition of heparinase TEG (Bld) [Angle] 70.2 degrees Normal 47.0-74.0 [facility] Comment on above: Order Comment: Speci men Type: BLOOD SPECIMEN Performed By: #### T EGHPP ####[facility] LABORATORYCLIA [id number] [address] Clot Lysis 30 Min post maximum clot amplitude TEG (Bld) [Length fraction] 0.0 % Normal 0.0-8.0 [facility] Comment on above: Order Comment: Speci men Type: BLOOD SPECIMEN Performed By: #### T EGHPP ####[facility] LABORATORYCLIA [id number] [address] Clotting time after addition of heparinase TEG (Bld) 5.7 minutes Normal 4.0-10.0 [facility] Comment on above: Order Comment: Speci men Type: BLOOD SPECIMEN Performed By: #### T EGHPP ####[facility] LABORATORYCLIA [id number] [address] Coagulation index TEG Qn (Bld) 1.2 Normal -4.6-3.2 [facility] Comment on above: Order Comment: Speci men Type: BLOOD SPECIMEN Result Comment: The Coagulation Index, a secondary parameter, is labeled by the supervisor heavy equipment as for research use only and is used per the supervisor heavy equipment's instructions. Its performance characteristics were determined by [facility]'s [facility] Pathology and Laboratory Medicine [place] in a manner consistent with CLIA requirements. This test has not been cleared by the U.S. Food and Drug Administration. Performed By: #### T EGHPP ####[facility] LABORATORYCLIA [id number] [address] Maximum clot firmness after addition of heparinase TEG (Bld) [Length] 64.0 mm Normal 51.0-75.0 [facility] Comment on above: Order Comment: Speci men Type: BLOOD SPECIMEN Performed By: #### T EGHPP ####[facility] LABORATORYCLIA [id number] [address] Vancomycin random [Mass/Vol] on 06-06-2021 Vancomycin [Mass/Vol] 17.4 ug/mL Normal 10.0-20.0 [facility] Comment on above: Order Comment: Speci men Type: BLOOD SPECIMEN Result Comment: Refe rence ranges and high/low indicator flags are provided as general guidelines only. The treating physician must determine appropriate target levels/dosing based on the specific clinical situation. Performed By: #### 4 091-5 ####[facility] LABORATORYCLIA [id number] [address] STATES OF [facility] Vancomycin [Mass/Vol] 13.5 ug/mL Normal 10.0-20.0 [facility] Comment on above: Order Comment: Speci men Type: BLOOD SPECIMEN Result Comment: Refe rence ranges and high/low indicator flags are provided as general guidelines only. The treating physician must determine appropriate target levels/dosing based on the specific clinical situation. Performed By: #### 4 091-5 ####[facility] LABORATORYCLIA [id number] [address] aPTT PPPon 06-06-2021 aPTT Coag (PPP) [Time] 27.8 s Normal 23.0-32.4 [facility] Comment on above: Order Comment: Speci men Type: BLOOD SPECIMEN Performed By: #### 3 4528-0, 14610-0 ####[facility] LABORATORYCLIA [id number] [address] STATES OF [facility] Basic metabolic 2000 panelon 06-05-2021 Anion gap [Moles/Vol] 11 mmol/L Normal 9-18 [facility] Comment on above: Order Comment: Speci men Type: BLOOD SPECIMEN Performed By: #### 1 9123-9, 10872-4, 2776- ####[facility] LABORATORYCLIA [id number] [address] STATES OF [facility] Calcium [Mass/Vol] 8.6 mg/dL Normal 8.5-10.2 [facility] Comment on above: Order Comment: Speci men Type: BLOOD SPECIMEN Performed By: #### 1 9123-9, 28657-2, 2776- ####[facility] LABORATORYCLIA [id number] [address] STATES OF [facility] Chloride [Moles/Vol] 108 mmol/L High 97-105 [facility] Comment on above: Order Comment: Speci men Type: BLOOD SPECIMEN Performed By: #### 1 9123-9, 35052-8, 2776- ####[facility]ORATORYCLIA [id number] [address] [place] CO2 [Moles/Vol] 25 mmol/L Normal 22-30 [facility] Comment on above: Order Comment: Speci men Type: BLOOD SPECIMEN Performed By: #### 1 9123-9, 29051-1, 2776- ####[facility] LABORATORYCLIA [id number] [address] [place] Creatinine [Mass/Vol] 0.77 mg/dL Normal 0.73-1.22 [facility] Comment on above: Order Comment: Speci men Type: BLOOD SPECIMEN Performed By: #### 1 9123-9, 16798-2, 2776-05 ####[facility] [id number] [place] [address] [place] GFR/1.73 sq M.predicted [...] actual GFR. Performed By: #### 1 9123-9, 91687-8, 2776-05 ####[facility] [id number] [place] [address] [place] Glucose [Mass/Vol] 96 mg/dL Normal 74-99 [facility] Comment on above: Order Comment: Speci men Type: BLOOD SPECIMEN Result Comment: The [place] [employer] (ADA) provides guidance for cutoff [...] Standards of Medical Care in Diabetes 2016, [place] [employer]. Diabetes Care. 2016.39(Suppl 1). Performed By: #### 1 9123-9, 66974-7, 2776-05 ####[facility] LABORATORYCLIA [id number] [address] STATES OF [facility] Potassium [Moles/Vol] 3.9 mmol/L Normal 3.7-5.1 [facility] Comment on above: Order Comment: Speci men Type: BLOOD SPECIMEN Performed By: #### 1 9123-9, 15118-9, 2777-1 ####[facility] LABORATORYCLIA [id number] [address] Sodium [Moles/Vol] 144 mmol/L Normal 136-144 [facility] Comment on above: Order Comment: Speci men Type: BLOOD SPECIMEN Performed By: #### 1 9123-9, 60391-5, 2777-1 ####[facility] LABORATORYCLIA [id number] [address] Urea nitrogen [Mass/Vol] 26 mg/dL High 9-24 [facility] Comment on above: Order Comment: Speci men Type: BLOOD SPECIMEN Performed By: #### 1 9123-9, 85197-6, 2776- ####[facility] LABORATORYCLIA [id number] [address] CBC panel Auto (Bld)on 06-05 Erythrocyte distribution width (RBC) [Ratio] 15.9 % High 11.5-15.0 [facility] Comment on above: Order Comment: Speci men Type: BLOOD SPECIMEN Performed By: #### 5 8410-2 ####[facility] LABORATORYCLIA [id number] [address] Hematocrit (Bld) [Volume fraction] 39.6 % Normal 39.0-51.0 [facility] Comment on above: Order Comment: Speci men Type: BLOOD SPECIMEN Performed By: #### 5 8410-2 ####[facility] LABORATORYCLIA [id number] [address] OF [facility] Hemoglobin (Bld) [Mass/Vol] 12.3 g/dL Low 13.0-17.0 [facility] Comment on above: Order Comment: Speci men Type: BLOOD SPECIMEN Performed By: #### 5 8410-2 ####[facility] LABORATORYCLIA [id number] [address] MCH (RBC) [Entitic mass] 28.1 pg Normal 26.0-34.0 [facility] Comment on above: Order Comment: Speci men Type: BLOOD SPECIMEN Performed By: #### 5 8410-2 ####[facility] LABORATORYCLIA [id number] [address] MCHC (RBC) [Mass/Vol] 31.1 g/dL Normal 30.5-36.0 [facility] Comment on above: Order Comment: Speci men Type: BLOOD SPECIMEN Performed By: #### 5 8410-2 ####[facility] LABORATORYCLIA [id number] [address] MCV (RBC) [Entitic vol] 90.4 fL Normal 80.0-100.0 [facility] Comment on above: Order Comment: Speci men Type: BLOOD SPECIMEN Performed By: #### 5 8410-2 ####[facility] LABORATORYCLIA [id number] [address] Nucleated RBC (Bld) [#/Vol] 10*3/uL Normal <0.01 [facility] Comment on above: Order Comment: Speci men Type: BLOOD SPECIMEN Performed By: #### 5 8410-2 ####[facility] LABORATORYCLIA [id number] [address] Platelet mean volume (Bld) [Entitic vol] 10.5 fL Normal 9.0-12.7 [facility] Comment on above: Order Comment: Speci men Type: BLOOD SPECIMEN Performed By: #### 5 8410-2 ####[facility] LABORATORYCLIA [id number] [address] Platelets (Bld) [#/Vol] 224 10*3/uL Normal 150-400 [facility] Comment on above: Order Comment: Speci men Type: BLOOD SPECIMEN Performed By: #### 5 8410-2 ####[facility] LABORATORYCLIA [id number] [address] OF [facility] RBC (Bld) [#/Vol] 4.38 10*6/uL Normal 4.20-6.00 [facility] Comment on above: Order Comment: Speci men Type: BLOOD SPECIMEN Performed By: #### 5 8410-2 ####[facility] LABORATORYCLIA [id number] [address] WBC (Bld) [#/Vol] 9.66 10*3/uL Normal 3.70-11.00 [facility] Comment on above: Order Comment: Speci men Type: BLOOD SPECIMEN Performed By: #### 5 8410-2 ####[facility] LABORATORYCLIA [id number] [address] CONSULT PROGon 06-05-2021 CONSULT PROG Normal [facility] Gas and Carbon monoxide pane l (BldV)on 06-05-2021 Base excess Calc (BldV) [Moles/Vol] 1.8 mmol/L Normal 0-2 [facility] Comment on above: Order Comment: Speci men Type: VENOUS BLOOD SPECIMEN Performed By: #### 2 4344-4 ####[facility] LABORATORYCLIA [id number] [address] Body temperature 100.4 [degF] Normal [facility] Comment on above: Order Comment: Speci men Type: VENOUS BLOOD SPECIMEN Performed By: #### 2 4344-4 ####[facility] LABORATORYCLIA [id number] [address] CALCIUM IONIZED, PH CORRECTED 1.21 mmol/L Normal 1.08-1.30 [facility] Comment on above: Order Comment: Speci men Type: VENOUS BLOOD SPECIMEN Performed By: #### 2 4344-4 ####[facility] LABORATORYCLIA [id number] [address] Calcium.ionized (BldV) [Mass/Vol] 1.19 mmol/L Normal 1.08-1.30 [facility] Comment on above: Order Comment: Speci men Type: VENOUS BLOOD SPECIMEN Performed By: #### 2 4344-4 ####[facility] LABORATORYCLIA [id number] [address] Carboxyhemoglobin (BldV) [Mass fraction] 1.0 % Normal 0.0-2.0 [facility] Comment on above: Order Comment: Speci men Type: VENOUS BLOOD SPECIMEN Result Comment: Carb oxyhemoglobin Reference Range for Smokers: 2.0-8.0% Performed By: #### 2 4344-4 ####[facility] LABORATORYCLIA [id number] [address] CO2 (BldV) [Partial pressure] 41 mm[Hg] Low 42-55 [facility] Comment on above: Order Comment: Speci men Type: VENOUS BLOOD SPECIMEN Performed By: #### 2 4344-4 ####[facility] LABORATORYCLIA [id number] [address] CO2 [Moles/Vol] 23.4 mmol/L Low 25-29 [facility] Comment on above: Order Comment: Speci men Type: VENOUS BLOOD SPECIMEN Performed By: #### 2 4344-4 ####[facility] LABORATORYCLIA [id number] [address] CO2 adjusted to patient's actual temperature (BldV) [Partial pressure] 43 mmHg Normal 42-55 [facility] Comment on above: Order Comment: Speci men Type: VENOUS BLOOD SPECIMEN Performed By: #### 2 4344-4 ####[facility] LABORATORYCLIA [id number] [address] Glucose [Mass/Vol] 101 mg/dL Normal 60-105 [facility] Comment on above: Order Comment: Speci men Type: VENOUS BLOOD SPECIMEN Performed By: #### 2 4344-4 ####[facility]ATORYCLIA [id number] [address] STATES [facility] HCO3 (Bld) [Moles/Vol] 26.0 mmol/L Normal 24-[address] [facility] Comment on above: Order Comment: Speci men Type: VENOUS BLOOD SPECIMEN Performed By: #### 2 4344-4 ####[facility]ATORYCLIA [id number] [place], [place] [id number] [place] [address] OF [facility] Hematocrit (Bld) [Volume fraction] 38.4 % Low 39.0-51.0 [facility] Comment on above: Order Comment: Speci men Type: VENOUS BLOOD SPECIMEN Performed By: #### 2 4344-4 ####[facility]ORYCLIA [id number] [address] Hemoglobin (Bld) [Mass/Vol] 12.5 g/dL Low 13.0-17.0 [facility] Comment on above: Order Comment: Speci men Type: VENOUS BLOOD SPECIMEN Performed By: #### 2 4344-4 ####[facility]ORYCLIA [id number] [address] Methemoglobin (Bld) [Mass fraction] % Normal 0.0-1.5 [facility] Comment on above: Order Comment: Speci men Type: VENOUS BLOOD SPECIMEN Performed By: #### 2 4344-4 ####[facility]ORYCLIA [id number] [address] [place] O2 THERAPY Ventilator Normal [facility] Comment on above: Order Comment: Speci men Type: VENOUS BLOOD SPECIMEN Performed By: #### 2 4344-4 ####[facility]ORATORYCLIA [id number] [place], [place] [id number] [place] [address] Oxygen (BldV) [Partial pressure] 44 mm[Hg] Normal 35-45 [facility] Comment on above: Order Comment: Speci men Type: VENOUS BLOOD SPECIMEN Performed By: #### 2 4344-4 ####[facility]ORYCLIA [id number] [address] Oxygen adjusted to patient's actual temperature (BldV) [Partial pressure] 46.8 mmHg High 35-45 [facility] Comment on above: Order Comment: Speci men Type: VENOUS BLOOD SPECIMEN Performed By: #### 2 4344-4 ####[facility]ORYCLIA [id number] [address] Oxygen saturation in Blood 76.5 % Normal 60-85 [facility] Comment on above: Order Comment: Speci men Type: VENOUS BLOOD SPECIMEN Performed By: #### 2 4344-4 ####[facility]ATORYCLIA [id number] [address] Oxyhemoglobin (BldV) [Mass fraction] 75 % Normal 60-85 [facility] Comment on above: Order Comment: Speci men Type: VENOUS BLOOD SPECIMEN Performed By: #### 2 4344-4 ####[facility]ATORYCLIA [id number] [address] OF [facility] pH (BldV) 7.42 [pH] Normal 7.32-7.42 [facility] Comment on above: Order Comment: Speci men Type: VENOUS BLOOD SPECIMEN Performed By: #### 2 4344-4 ####[facility]ORYCLIA [id number] [address] pH adjusted to patient's actual temperature (BldV) 7.40 Normal 7.32-7.42 [facility] Comment on above: Order Comment: Speci men Type: VENOUS BLOOD SPECIMEN Performed By: #### 2 4344-4 ####[facility]ORYCLIA [id number] [address] [place] Potassium [Moles/Vol] 3.7 mmol/L Normal 3.5-5.0 [facility] Comment on above: Order Comment: Speci men Type: VENOUS BLOOD SPECIMEN Performed By: #### 2 4344-4 ####[facility]ORYCLIA [id number] [address] [place] Sodium [Moles/Vol] 141 mmol/L Normal 136-144 [facility] Comment on above: Order Comment: Speci men Type: VENOUS BLOOD SPECIMEN Performed By: #### 2 4344-4 ####[facility]ORYCL[facility] [id number] [address] [place] Magnesium SerPl-mCncon 06-05 Magnesium [Mass/Vol] 2.3 mg/dL Normal 1.7-2.3 [facility] Comment on above: Order Comment: Speci men Type: BLOOD SPECIMEN Performed By: #### 1 9123-9, 73897-8, 2777-1 ####[facility]ORATORYCL[facility] [id number] [address] [place] Phosphate SerPl-mCncon 06-05 Phosphate [Mass/Vol] 2.9 mg/dL Normal 2.7-4.8 [facility] Comment on above: Order Comment: Speci men Type: BLOOD SPECIMEN Performed By: #### 1 9123-9, 83645-5, 2777-1 ####[facility] [facility] LABORATORYCLIA [id number] [address] STATES OF [facility] Vancomycin random [Mass/Vol] on 06-05-2021 Vancomycin [Mass/Vol] 23.2 ug/mL High 10.0-20.0 [facility] Comment on above: Order Comment: Speci men Type: BLOOD SPECIMEN Result Comment: Refe rence ranges and high/low indicator flags are provided as general guidelines only. The treating physician must determine appropriate target levels/dosing based on the specific clinical situation. Performed By: #### 4 091-5 ####[facility] LABORATORYCLIA [id number] [place] [id number] [place] (1,3)-M-W-JKFNTRde 2 (1,3) B-D GLUCAN <31 Normal <60 [facility] Comment on above: Order Comment: Speci men Type: BLOOD SPECIMEN Performed By: #### B DGLUC ####[facility] LAB REFERENCE LABCLIA [id number] [id number] [address] [place] (1,3) B-D GLUCAN, QUAL Negative Normal NEGAT [facility] Comment on above: Order Comment: Speci men Type: BLOOD SPECIMEN Result Comment: Cert ain fungi, such as the genus Cryptococcus which produces very low levels of (1,3)-fejf-Y-brixra, may not result in serum (1,3)-ywbn-Z-scijvx sufficiently elevated so as to be detected by the assay. Infections with fungi of the order Mucorales such as Absidia, Mucor and Rhizopus which are not known to produce (1,3)-xufh-H-lnbwyg, are also observed to yield low serum (1,3)-ddlc-X-lkhvbo titers.In addition, the yeast phase of Blastomyces dermatitidis produces little (1,3)-dnaf-R-hdoqfr and may not be detected by the assay. Performed By: #### B DGLUC ####[facility] LAB REFERENCE LABCLIA [id number] [facility] [id number] [address] [place] ALLIED HEALTHon 06-04-2021 ALLIED HEALTH Normal [facility] ALLIED HEALTH Normal [facility] ARTERIAL BLOOD GASESon 06-04 Base excess Calc (Bld) [Moles/Vol] 3 mmol/L High 0-2 [facility] Comment on above: Order Comment: Speci men Type: ARTERIAL BLOOD SPECIMEN Performed By: #### A LLBG ####[facility] LABORATORYCLIA [id number] [address] [place] Body temperature 98.06 [degF] Normal [facility] Comment on above: Order Comment: Speci men Type: ARTERIAL BLOOD SPECIMEN Performed By: #### A LLBG ####[facility] LABORATORYCLIA [id number] [address] [place] CALCIUM IONIZED, PH CORRECTED 1.19 mmol/L Normal 1.08-1.30 [facility] Comment on above: Order Comment: Speci men Type: ARTERIAL BLOOD SPECIMEN Performed By: #### A LLBG ####[facility] LABORATORYCLIA [id number] [place] [address] [place] Calcium.ionized (BldV) [Mass/Vol] 1.14 mmol/L Normal 1.08-1.30 [facility] Comment on above: Order Comment: Speci men Type: ARTERIAL BLOOD SPECIMEN Performed By: #### A LLBG ####[facility]ATORYCLIA [id number] [address] OF [facility] Carboxyhemoglobin (BldA) [Mass fraction] 1.2 % Normal 0.0-2.0 [facility] Comment on above: Order Comment: Speci men Type: ARTERIAL BLOOD SPECIMEN Result Comment: Carb oxyhemoglobin Reference Range for Smokers: 2.0-8.0% Performed By: #### A LLBG ####[facility]ATORYCLIA [id number] [address] CO2 (Bld) [Partial pressure] 35 mm Hg Low 36-46 [facility] Comment on above: Order Comment: Speci men Type: ARTERIAL BLOOD SPECIMEN Performed By: #### A LLBG ####[facility]ATORYCLIA [id number] [address] [place] CO2 [Moles/Vol] 23.2 mmol/L Normal 22-28 [facility] Comment on above: Order Comment: Speci men Type: ARTERIAL BLOOD SPECIMEN Performed By: #### A LLBG ####[facility]ATORYCLIA [id number] [address] CO2 adjusted to patient's actual temperature (Bld) [Partial pressure] 34 mmHg Low 36-46 [facility] Comment on above: Order Comment: Speci men Type: ARTERIAL BLOOD SPECIMEN Performed By: #### A LLBG ####[facility]ORATORYCLIA [id number] [address] [place] Glucose [Mass/Vol] 115 mg/dL High 60-105 [facility] Comment on above: Order Comment: Speci men Type: ARTERIAL BLOOD SPECIMEN Performed By: #### A LLBG ####[facility]ATORYCLIA [id number] [address] [place] HCO3 (Bld) [Moles/Vol] 26 mmol/L Normal 22-26 [facility] Comment on above: Order Comment: Speci men Type: ARTERIAL BLOOD SPECIMEN Performed By: #### A LLBG ####[facility]ATORYCLIA [id number] [address] Hematocrit (Bld) [Volume fraction] 35.3 % Low 39.0-51.0 [facility] Comment on above: Order Comment: Speci men Type: ARTERIAL BLOOD SPECIMEN Performed By: #### A LLBG ####[facility]ATORYCLIA [id number] [address] OF [facility] Hemoglobin (Bld) [Mass/Vol] 11.5 g/dL Low 13.0-17.0 [facility] Comment on above: Order Comment: Speci men Type: ARTERIAL BLOOD SPECIMEN Performed By: #### A LLBG ####[facility] LABORATORYCLIA [id number] [address] Methemoglobin (Bld) [Mass fraction] % Normal 0.0-1.5 [facility] Comment on above: Order Comment: Speci men Type: ARTERIAL BLOOD SPECIMEN Performed By: #### A LLBG ####[facility] LABORATORYCLIA [id number] [address] O2 THERAPY Ventilator Normal [facility] Comment on above: Order Comment: Speci men Type: ARTERIAL BLOOD SPECIMEN Performed By: #### A LLBG ####[facility]ORATORYCLIA [id number] [address] Oxygen (Bld) [Partial pressure] 66 mm Hg Low 85-95 [facility] Comment on above: Order Comment: Speci men Type: ARTERIAL BLOOD SPECIMEN Performed By: #### A LLBG ####[facility]ATORYCLIA [id number] [address] Oxygen adjusted to patient's actual temperature (Bld) [Partial pressure] 64.3 mmHg Low 85-95 [facility] Comment on above: Order Comment: Speci men Type: ARTERIAL BLOOD SPECIMEN Performed By: #### A LLBG ####[facility] LABORATORYCLIA [id number] [address] OXYGEN SATURATION, ARTERIAL 95 % Normal 95-98 [facility] Comment on above: Order Comment: Speci men Type: ARTERIAL BLOOD SPECIMEN Performed By: #### A LLBG ####[facility] LABORATORYCLIA [id number] [address] Oxyhemoglobin (BldA) [Mass fraction] 93 % Low 95-98 [facility] Comment on above: Order Comment: Speci men Type: ARTERIAL BLOOD SPECIMEN Performed By: #### A LLBG ####[facility] LABORATORYCLIA [id number] [address] pH (Bld) 7.49 [pH] High 7.35-7.45 [facility] Comment on above: Order Comment: Speci men Type: ARTERIAL BLOOD SPECIMEN Performed By: #### A LLBG ####[facility] LABORATORYCLIA [id number] [address] pH adjusted to patient's actual temperature (Bld) 7.49 High 7.35-7.45 [facility] Comment on above: Order Comment: Speci men Type: ARTERIAL BLOOD SPECIMEN Performed By: #### A LLBG ####[facility] LABORATORYCLIA [id number] [address] Potassium [Moles/Vol] 2.8 mmol/L Low 3.5-5.0 [facility] Comment on above: Order Comment: Speci men Type: ARTERIAL BLOOD SPECIMEN Performed By: #### A LLBG ####[facility]ORATORYCLIA [id number] [address] Bas Metab 2000 Pnl SerPlon 0 06-04-2021 Sodium [Moles/Vol] 143 mmol/L Normal 136-144 [facility] Comment on above: Order Comment: Speci men Type: BLOOD SPECIMEN Performed By: #### 2 777-1, 27145-8, ####[facility]ORATORYCLIA [id number] [place], [place] [address] [place] [address] Order Comment: Speci men Type: ARTERIAL BLOOD SPECIMEN Performed By: #### A LLBG ####[facility]ORATORYCLIA [id number] [place] [address] [facility] Basic metabolic 2000 panelon 06-04-2021 Anion gap [Moles/Vol] 11 mmol/L Normal 9-18 [facility] Comment on above: Order Comment: Speci men Type: BLOOD SPECIMEN Performed By: #### 2 777-1, , ####[facility]ORATORYCLIA [id number] [address] STATES [facility] Calcium [Mass/Vol] 8.5 mg/dL Normal 8.5-10.2 [facility] Comment on above: Order Comment: Speci men Type: BLOOD SPECIMEN Performed By: #### 2 777-1, , ####[facility]ORATORYCLIA [id number] [address] [place] Chloride [Moles/Vol] 107 mmol/L High 97-105 [facility] Comment on above: Order Comment: Speci men Type: BLOOD SPECIMEN Performed By: #### 2 777-1, , ####[facility]ORATORYCLIA [id number] [place], [place] [address] [place] [address] [place] CO2 [Moles/Vol] 25 mmol/L Normal 22-30 [facility] Comment on above: Order Comment: Speci men Type: BLOOD SPECIMEN Performed By: #### 2 777-1, , ####[facility]ORATORYCLIA [id number] [place], [place] [address] [place] [address] [place] Creatinine [Mass/Vol] 0.77 mg/dL Normal 0.73-1.22 [facility] Comment on above: Order Comment: Speci men Type: BLOOD SPECIMEN Performed By: #### 2 777-1, , 15696-9 ####[facility] [id number] [place] [address] [place] GFR/1.73 sq M.predicted [...] actual GFR. Performed By: #### 2 777-1, 80277-5, 91083-1 ####[facility] [id number] [place] [id number] [place] Glucose [Mass/Vol] 107 mg/dL High 74-99 [facility] Comment on above: Order Comment: Speci men Type: BLOOD SPECIMEN Result Comment: The [place] [employer] (ADA) provides guidance for cutoff [...] Standards of Medical Care in Diabetes 2016, [place] [employer]. Diabetes Care. 2016.39(Suppl 1). Performed By: #### 2 777-1, 40174-2, 70221-4 ####[facility] [id number] [address] Potassium [Moles/Vol] 3.1 mmol/L Low 3.7-5.1 [facility] Comment on above: Order Comment: Speci men Type: BLOOD SPECIMEN Performed By: #### 2 777-1, , 96856-9 ####[facility] LABORATORYCLIA [id number] [address] Urea nitrogen [Mass/Vol] 19 mg/dL Normal 9-24 [facility] Comment on above: Order Comment: Speci men Type: BLOOD SPECIMEN Performed By: #### 2 777-1, , 46685-7 ####[facility] LABORATORYCLIA [id number] [address] CBC panel Auto (Bld)on 06-04 Erythrocyte distribution width (RBC) [Ratio] 15.8 % High 11.5-15.0 [facility] Comment on above: Order Comment: Speci men Type: BLOOD SPECIMEN Performed By: #### 5 8410-2 ####[facility] LABORATORYCLIA [id number] [address] Hematocrit (Bld) [Volume fraction] 36.9 % Low 39.0-51.0 [facility] Comment on above: Order Comment: Speci men Type: BLOOD SPECIMEN Performed By: #### 5 8410-2 ####[facility] LABORATORYCLIA [id number] [address] Hemoglobin (Bld) [Mass/Vol] 11.2 g/dL Low 13.0-17.0 [facility] Comment on above: Order Comment: Speci men Type: BLOOD SPECIMEN Performed By: #### 5 8410-2 ####[facility] LABORATORYCLIA [id number] [address] MCH (RBC) [Entitic mass] 27.3 pg Normal 26.0-34.0 [facility] Comment on above: Order Comment: Speci men Type: BLOOD SPECIMEN Performed By: #### 5 8410-2 ####[facility] LABORATORYCLIA [id number] [address] MCHC (RBC) [Mass/Vol] 30.4 g/dL Low 30.5-36.0 [facility] Comment on above: Order Comment: Speci men Type: BLOOD SPECIMEN Performed By: #### 5 8410-2 ####[facility] LABORATORYCLIA [id number] [address] MCV (RBC) [Entitic vol] 89.8 fL Normal 80.0-100.0 [facility] Comment on above: Order Comment: Speci men Type: BLOOD SPECIMEN Performed By: #### 5 8410-2 ####[facility] LABORATORYCLIA [id number] [address] Nucleated RBC (Bld) [#/Vol] 10*3/uL Normal <0.01 [facility] Comment on above: Order Comment: Speci men Type: BLOOD SPECIMEN Performed By: #### 5 8410-2 ####[facility] LABORATORYCLIA [id number] [address] Platelet mean volume (Bld) [Entitic vol] 10.7 fL Normal 9.0-12.7 [facility] Comment on above: Order Comment: Speci men Type: BLOOD SPECIMEN Performed By: #### 5 8410-2 ####[facility] LABORATORYCLIA [id number] [address] Platelets (Bld) [#/Vol] 174 10*3/uL Normal 150-400 [facility] Comment on above: Order Comment: Speci men Type: BLOOD SPECIMEN Performed By: #### 5 8410-2 ####[facility] LABORATORYCLIA [id number] [address] RBC (Bld) [#/Vol] 4.11 10*6/uL Low 4.20-6.00 [facility] Comment on above: Order Comment: Speci men Type: BLOOD SPECIMEN Performed By: #### 5 8410-2 ####[facility] LABORATORYCLIA [id number] [address] WBC (Bld) [#/Vol] 8.29 10*3/uL Normal 3.70-11.00 [facility] Comment on above: Order Comment: Speci men Type: BLOOD SPECIMEN Performed By: #### 5 8410-2 ####[facility] LABORATORYCLIA [id number] [address] CONSULT PROGon 06-04-2021 CONSULT PROG Normal [facility] CT BRAIN WO IVCONon 06-04-19 CT BRAIN WO IVCON Normal [facility] CT CHEST W IVCON PEon 2021 CT CHEST W IVCON PE Normal [facility] Magnesium SerPl-mCncon 06-04 Magnesium [Mass/Vol] 2.2 mg/dL Normal 1.7-2.3 [facility] Comment on above: Order Comment: Speci men Type: BLOOD SPECIMEN Performed By: #### 2 777-1, 93391-5, 93999-6 ####[facility] LABORATORYCLIA [id number] [address] NT-proBNP SerPl-mCncon 06-04 Natriuretic peptide.B prohormone N-Terminal [Mass/Vol] 229 pg/mL High <125 [facility] Comment on above: Order Comment: Speci men Type: BLOOD SPECIMEN Performed By: #### 3 3762-6, 4091-5 ####[facility] LABORATORYCLIA [id number] [address] Phosphate SerPl-mCncon 06-04 Phosphate [Mass/Vol] 2.0 mg/dL Low 2.7-4.8 [facility] Comment on above: Order Comment: Speci men Type: BLOOD SPECIMEN Performed By: #### 2 777-1, 13581-3, 38524-3 ####[facility] LABORATORYCLIA [id number] [address] Vancomycin random [Mass/Vol] on 06-04-2021 Vancomycin [Mass/Vol] 35.2 ug/mL High 10.0-20.0 [facility] Comment on above: Order Comment: Speci men Type: BLOOD SPECIMEN Result Comment: Refe rence ranges and high/low indicator flags are provided as general guidelines only. The treating physician must determine appropriate target levels/dosing based on the specific clinical situation. Performed By: #### 3 3762-6, 4091-5 ####[facility] LABORATORYCLIA [id number] [address] XR ABDOMEN 1V SUPINEon 06-04 XR ABDOMEN 1V SUPINE Normal [facility] ALLIED HEALTHon 06-03-2021 ALLIED HEALTH Normal [facility] ARTERIAL BLOOD GASESon 06-03 Base excess Calc (Bld) [Moles/Vol] 5 mmol/L High 0-2 [facility] Comment on above: Order Comment: Speci men Type: ARTERIAL BLOOD SPECIMEN Performed By: #### A LLBG ####[facility] LABORATORYCLIA [id number] [address] Body temperature 99.5 [degF] Normal [facility] Comment on above: Order Comment: Speci men Type: ARTERIAL BLOOD SPECIMEN Performed By: #### A LLBG ####[facility] LABORATORYCLIA [id number] [address] CALCIUM IONIZED, PH CORRECTED 1.18 mmol/L Normal 1.08-1.30 [facility] Comment on above: Order Comment: Speci men Type: ARTERIAL BLOOD SPECIMEN Performed By: #### A LLBG ####[facility] LABORATORYCLIA [id number] [address] Calcium.ionized (BldV) [Mass/Vol] 1.16 mmol/L Normal 1.08-1.30 [facility] Comment on above: Order Comment: Speci men Type: ARTERIAL BLOOD SPECIMEN Performed By: #### A LLBG ####[facility] LABORATORYCLIA [id number] [address] Carboxyhemoglobin (BldA) [Mass fraction] 1.2 % Normal 0.0-2.0 [facility] Comment on above: Order Comment: Speci men Type: ARTERIAL BLOOD SPECIMEN Result Comment: Carb oxyhemoglobin Reference Range for Smokers: 2.0-8.0% Performed By: #### A LLBG ####[facility]ORYCLIA [id number] [address] CO2 (Bld) [Partial pressure] 45 mm Hg Normal 36-46 [facility] Comment on above: Order Comment: Speci men Type: ARTERIAL BLOOD SPECIMEN Performed By: #### A LLBG ####[facility] LABORATORYCLIA [id number] [address] CO2 [Moles/Vol] 26.9 mmol/L Normal 22-28 [facility] Comment on above: Order Comment: Speci men Type: ARTERIAL BLOOD SPECIMEN Performed By: #### A LLBG ####[facility] LABORATORYCLIA [id number] [address] CO2 adjusted to patient's actual temperature (Bld) [Partial pressure] 47 mmHg High 36-46 [facility] Comment on above: Order Comment: Speci men Type: ARTERIAL BLOOD SPECIMEN Performed By: #### A LLBG ####[facility] LABORATORYCLIA [id number] [address] Glucose [Mass/Vol] 141 mg/dL High 60-105 [facility] Comment on above: Order Comment: Speci men Type: ARTERIAL BLOOD SPECIMEN Performed By: #### A LLBG ####[facility]ORYCLIA [id number] [address] HCO3 (Bld) [Moles/Vol] 30 mmol/L High 22-26 [facility] Comment on above: Order Comment: Speci men Type: ARTERIAL BLOOD SPECIMEN Performed By: #### A LLBG ####[facility]ORYCLIA [id number] [address] Hematocrit (Bld) [Volume fraction] 35.8 % Low 39.0-51.0 [facility] Comment on above: Order Comment: Speci men Type: ARTERIAL BLOOD SPECIMEN Performed By: #### A LLBG ####[facility]ORYCLIA [id number] [address] Hemoglobin (Bld) [Mass/Vol] 11.6 g/dL Low 13.0-17.0 [facility] Comment on above: Order Comment: Speci men Type: ARTERIAL BLOOD SPECIMEN Performed By: #### A LLBG ####[facility]ORY[facility] [id number] [address] Methemoglobin (Bld) [Mass fraction] % Normal 0.0-1.5 [facility] Comment on above: Order Comment: Speci men Type: ARTERIAL BLOOD SPECIMEN Performed By: #### A LLBG ####[facility]ORYCLIA [id number] [address] O2 THERAPY Ventilator Normal [facility] Comment on above: Order Comment: Speci men Type: ARTERIAL BLOOD SPECIMEN Performed By: #### A LLBG ####[facility]ORYCLIA [id number] [address] OF [facility] Oxygen (Bld) [Partial pressure] 69 mm Hg Low 85-95 [facility] Comment on above: Order Comment: Speci men Type: ARTERIAL BLOOD SPECIMEN Performed By: #### A LLBG ####[facility]ORY[facility] [id number] [address] OF [place] Oxygen adjusted to patient's actual temperature (Bld) [Partial pressure] 70.8 mmHg Low 85-95 [facility] Comment on above: Order Comment: Speci men Type: ARTERIAL BLOOD SPECIMEN Performed By: #### A LLBG ####[facility] [id number] [address] OF [place] OXYGEN SATURATION, ARTERIAL 94 % Low 95-98 [facility] Comment on above: Order Comment: Speci men Type: ARTERIAL BLOOD SPECIMEN Performed By: #### A LLBG ####[facility]ATORYCLIA [id number] [address] Oxyhemoglobin (BldA) [Mass fraction] 93 % Low 95-98 [facility] Comment on above: Order Comment: Speci men Type: ARTERIAL BLOOD SPECIMEN Performed By: #### A LLBG ####[facility]ATORYCLIA [id number] [address] OF [place] pH (Bld) 7.43 [pH] Normal 7.35-7.45 [facility] Comment on above: Order Comment: Speci men Type: ARTERIAL BLOOD SPECIMEN Performed By: #### A LLBG ####[facility]ORYCLIA [id number] [address] pH adjusted to patient's actual temperature (Bld) 7.43 Normal 7.35-7.45 [facility] Comment on above: Order Comment: Speci men Type: ARTERIAL BLOOD SPECIMEN Performed By: #### A LLBG ####[facility]ATORYCLIA [id number] [address] OF [facility] Potassium [Moles/Vol] 3.1 mmol/L Low 3.5-5.0 [facility] Comment on above: Order Comment: Speci men Type: ARTERIAL BLOOD SPECIMEN Performed By: #### A LLBG ####[facility]ATORYCLIA [id number] [address] OF [facility] Sodium [Moles/Vol] 145 mmol/L High 136-144 [facility] Comment on above: Order Comment: Speci men Type: ARTERIAL BLOOD SPECIMEN Performed By: #### A LLBG ####[facility]ATORYCLIA [id number] [address] OF [facility] ASPERGILLUS GALACTOMANNAN SE RUMon 06-03-2021 Galactomannan Ag IA Ql Negative Normal NEGAT [facility] Comment on above: Order [...] is suspected. Performed By: #### A MIMI ####[facility] REFERENCE LABCLIA [id number] [place] [address] [address] [place] Galactomannan Ag IA Qn <0.50 Normal [facility] Comment on above: Order Comment: Speci men Type: BLOOD SPECIMEN Result Comment: Inde x Values are Interpreted as Follows:Negative specimens <0.50Positive specimens >=0.50 Performed By: #### A SGAKATHRYN ####[facility] LAB REFERENCE LABCLIA [id number] [place] [address] [address] [place] Basic metabolic 2000 panelon 06-03-2021 Anion gap [Moles/Vol] 8 mmol/L Low 9-18 [facility] Comment on above: Order Comment: Speci men Type: BLOOD SPECIMEN Performed By: #### 1 9123-9, 2777-1, 83599-6 ####[facility]ORATORYCLIA [id number] [place] [address] [place] Calcium [Mass/Vol] 8.0 mg/dL Low 8.5-10.2 [facility] Comment on above: Order Comment: Speci men Type: BLOOD SPECIMEN Performed By: #### 1 9123-9, 2777-1, 32927-5 ####[facility]ATORYCLIA [id number] [place] [address] [place] Chloride [Moles/Vol] 110 mmol/L High 97-105 [facility] Comment on above: Order Comment: Speci men Type: BLOOD SPECIMEN Performed By: #### 1 9123-9, 2777-1, 32436-3 ####[facility]ATORYCLIA [id number] [place] [address] [place] CO2 [Moles/Vol] 28 mmol/L Normal 22-30 [facility] Comment on above: Order Comment: Speci men Type: BLOOD SPECIMEN Performed By: #### 1 9123-9, 2777-1, 62742-6 ####[facility] LABORATORYCLIA [id number] [place] [address] [place] Creatinine [Mass/Vol] 0.75 mg/dL Normal 0.73-1.22 [facility] Comment on above: Order Comment: Speci men Type: BLOOD SPECIMEN Performed By: #### 1 9123-9, 2777-, 85947-8 ####[facility] LAB[facility]ATORYCLIA [id number] [place] [address] [place] GFR/1.73 sq M.predicted [...] GFR. Performed By: #### 1 9123-9, 2777-, 80406-1 ####[facility] LABORATORYCLIA [id number] [place] [address] [place] Glucose [Mass/Vol] 141 mg/dL High 74-99 [facility] Comment on above: Order Comment: [facility] Type: BLOOD SPECIMEN Result Comment: The [place] [employer] (ADA) provides guidance for cutoff [...] Standards of Medical Care in Diabetes 2016, [place] [employer]. Diabetes Care. 2016.39(Suppl 1). Performed By: #### 1 9123-9, 2777-1, 70725-6 ####[facility]ATORYCLIA [id number] [address] Potassium [Moles/Vol] 3.3 mmol/L Low 3.7-5.1 [facility] Comment on above: Order Comment: Speci men Type: BLOOD SPECIMEN Performed By: #### 1 9123-9, 27711-04, 17378-5 ####[facility]ATORYCLIA [id number] [address] Sodium [Moles/Vol] 146 mmol/L High 136-144 [facility] Comment on above: Order Comment: Speci men Type: BLOOD SPECIMEN Performed By: #### 1 9123-9, 27711-04, 32811-0 ####[facility]ORYCLIA [id number] [address] Urea nitrogen [Mass/Vol] 10 mg/dL Normal 9-24 [facility] Comment on above: Order Comment: Speci men Type: BLOOD SPECIMEN Performed By: #### 1 9123-9, 2777, 24651-2 ####[facility]ORYCLIA [id number] [address] CASE MANAGEMon 06-03-2021 CASE MANAGEM Normal [facility] CBC panel Auto (Bld)on 06-03 Erythrocyte distribution width (RBC) [Ratio] 15.6 % High 11.5-15.0 [facility] Comment on above: Order Comment: Speci men Type: BLOOD SPECIMEN Performed By: #### 5 8410-2 ####[facility]ORYCLIA [id number] [address] Hematocrit (Bld) [Volume fraction] 36.9 % Low 39.0-51.0 [facility] Comment on above: Order Comment: Speci men Type: BLOOD SPECIMEN Performed By: #### 5 8410-2 ####[facility]ORYCLIA [id number] [address] Hemoglobin (Bld) [Mass/Vol] 11.1 g/dL Low 13.0-17.0 [facility] Comment on above: Order Comment: Speci men Type: BLOOD SPECIMEN Performed By: #### 5 8410-2 ####[facility]ORYCLIA [id number] [address] MCH (RBC) [Entitic mass] 27.0 pg Normal 26.0-34.0 [facility] Comment on above: Order Comment: Speci men Type: BLOOD SPECIMEN Performed By: #### 5 8410-2 ####[facility]ORYCLIA [id number] [address] MCHC (RBC) [Mass/Vol] 30.1 g/dL Low 30.5-36.0 [facility] Comment on above: Order Comment: Speci men Type: BLOOD SPECIMEN Performed By: #### 5 8410-2 ####[facility]ORYCLIA [id number] [address] MCV (RBC) [Entitic vol] 89.8 fL Normal 80.0-100.0 [facility] Comment on above: Order Comment: Speci men Type: BLOOD SPECIMEN Performed By: #### 5 8410-2 ####[facility]ORYCLIA [id number] [address] Nucleated RBC (Bld) [#/Vol] 10*3/uL Normal <0.01 [facility] Comment on above: Order Comment: Speci men Type: BLOOD SPECIMEN Performed By: #### 5 8410-2 ####[facility]ORYCLIA [id number] [address] Platelet mean volume (Bld) [Entitic vol] 10.5 fL Normal 9.0-12.7 [facility] Comment on above: Order Comment: Speci men Type: BLOOD SPECIMEN Performed By: #### 5 8410-2 ####[facility]ORYCLIA [id number] [address] Platelets (Bld) [#/Vol] 196 10*3/uL Normal 150-400 [facility] Comment on above: Order Comment: Speci men Type: BLOOD SPECIMEN Performed By: #### 5 8410-2 ####[facility]ORYCLIA [id number] [address] RBC (Bld) [#/Vol] 4.11 10*6/uL Low 4.20-6.00 [facility] Comment on above: Order Comment: Speci men Type: BLOOD SPECIMEN Performed By: #### 5 8410-2 ####[facility]ORYCLIA [id number] [address] WBC (Bld) [#/Vol] 8.18 10*3/uL Normal 3.70-11.00 [facility] Comment on above: Order Comment: Speci men Type: BLOOD SPECIMEN Performed By: #### 5 8410-2 ####[facility]ORYCLIA [id number] [address] CONSULTon 06-03-2021 CONSULT Normal [facility] CONSULT PROGon 06-03-2021 CONSULT PROG Normal [facility] Gas and Carbon monoxide pane l (BldV)on 06-03-2021 Base excess Calc (BldV) [Moles/Vol] 1.4 mmol/L Normal 0-2 [facility] Comment on above: Order Comment: Speci men Type: VENOUS BLOOD SPECIMEN Performed By: #### 2 4344-4 ####[facility]ORYCLIA [id number] [address] Body temperature 98.42 [degF] Normal [facility] Comment on above: Order Comment: Speci men Type: VENOUS BLOOD SPECIMEN Performed By: #### 2 4344-4 ####[facility]ORATORYCLIA [id number] [address] CALCIUM IONIZED, PH CORRECTED 1.09 mmol/L Normal 1.08-1.30 [facility] Comment on above: Order Comment: Speci men Type: VENOUS BLOOD SPECIMEN Performed By: #### 2 4344-4 ####[facility]ORYCLIA [id number] [address] Calcium.ionized (BldV) [Mass/Vol] 1.12 mmol/L Normal 1.08-1.30 [facility] Comment on above: Order Comment: Speci men Type: VENOUS BLOOD SPECIMEN Performed By: #### 2 4344-4 ####[facility]ORYCLIA [id number] [address] Carboxyhemoglobin (BldV) [Mass fraction] 1.7 % Normal 0.0-2.0 [facility] Comment on above: Order Comment: Speci men Type: VENOUS BLOOD SPECIMEN Result Comment: Carb oxyhemoglobin Reference Range for Smokers: 2.0-8.0% Performed By: #### 2 4344-4 ####[facility]ORYCLIA [id number] [address] CO2 (BldV) [Partial pressure] 50 mm[Hg] Normal 42-55 [facility] Comment on above: Order Comment: Speci men Type: VENOUS BLOOD SPECIMEN Performed By: #### 2 4344-4 ####[facility]ORYCLIA [id number] [address] [place] CO2 [Moles/Vol] 24.9 mmol/L Low 25-29 [facility] Comment on above: Order Comment: Speci men Type: VENOUS BLOOD SPECIMEN Performed By: #### 2 4344-4 ####[facility]ORYCLIA [id number] [address] CO2 adjusted to patient's actual temperature (BldV) [Partial pressure] 50 mmHg Normal 42-55 [facility] Comment on above: Order Comment: Speci men Type: VENOUS BLOOD SPECIMEN Performed By: #### 2 4344-4 ####[facility]ORATORYCLIA [id number] [address] [place] FIO2 30 % Normal [facility] Comment on above: Order Comment: Speci men Type: VENOUS BLOOD SPECIMEN Performed By: #### 2 4344-4 ####[facility]ORYCLIA [id number] [address] Glucose [Mass/Vol] 191 mg/dL High 60-105 [facility] Comment on above: Order Comment: Speci men Type: VENOUS BLOOD SPECIMEN Performed By: #### 2 4344-4 ####[facility]ORYCLIA [id number] [address] HCO3 (Bld) [Moles/Vol] 27.1 mmol/L Normal 24-28 [facility] Comment on above: Order Comment: Speci men Type: VENOUS BLOOD SPECIMEN Performed By: #### 2 4344-4 ####[facility]ORYCLIA [id number] [address] Hematocrit (Bld) [Volume fraction] 36.2 % Low 39.0-51.0 [facility] Comment on above: Order Comment: Speci men Type: VENOUS BLOOD SPECIMEN Performed By: #### 2 4344-4 ####[facility]ORYCLIA [id number] [address] Hemoglobin (Bld) [Mass/Vol] 11.8 g/dL Low 13.0-17.0 [facility] Comment on above: Order Comment: Speci men Type: VENOUS BLOOD SPECIMEN Performed By: #### 2 4344-4 ####[facility]ATORYCLIA [id number] [address] INHALED TIDAL VOLUME (ML) 530 Normal [facility] Comment on above: Order Comment: Speci men Type: VENOUS BLOOD SPECIMEN Performed By: #### 2 4344-4 ####[facility]ATORYCLIA [id number] [place] [address] [facility] Methemoglobin (Bld) [Mass fraction] % Normal 0.0-1.5 [facility] Comment on above: Order Comment: Speci men Type: VENOUS BLOOD SPECIMEN Performed By: #### 2 4344-4 ####[facility]ATORYCLIA [id number] [place] [address] [facility] [place] O2 THERAPY Ventilator Normal [facility] Comment on above: Order Comment: Speci men Type: VENOUS BLOOD SPECIMEN Performed By: #### 2 4344-4 ####[facility]ORYCLIA [id number] [place], [place] [id number] [place] [address] Oxygen (BldV) [Partial pressure] 69 mm[Hg] High 35-45 [facility] Comment on above: Order Comment: Speci men Type: VENOUS BLOOD SPECIMEN Performed By: #### 2 4344-4 ####[facility]ATORYCLIA [id number] [place], [place] [address] [place] [address] Oxygen adjusted to patient's actual temperature (BldV) [Partial pressure] 68.8 mmHg High 35-45 [facility] Comment on above: Order Comment: Speci men Type: VENOUS BLOOD SPECIMEN Performed By: #### 2 4344-4 ####[facility]ORYCLIA [id number] [place], [place] [address] [place] [address] Oxygen saturation in Blood 92.4 % High 60-85 [facility] Comment on above: Order Comment: Speci men Type: VENOUS BLOOD SPECIMEN Performed By: #### 2 4344-4 ####[facility]ORYCLIA [id number] [place], [place] [address] [place] [address] Oxyhemoglobin (BldV) [Mass fraction] 90 % High 60-85 [facility] Comment on above: Order Comment: Speci men Type: VENOUS BLOOD SPECIMEN Performed By: #### 2 4344-4 ####[facility]ATORYCLIA [id number] [place] [address] PEEP/CPAP 8 cmH2O Normal [facility] Comment on above: Order Comment: Speci men Type: VENOUS BLOOD SPECIMEN Performed By: #### 2 4344-4 ####[facility]ORYCLIA [id number] [address] pH (BldV) 7.35 [pH] Normal 7.32-7.42 [facility] Comment on above: Order Comment: Speci men Type: VENOUS BLOOD SPECIMEN Performed By: #### 2 4344-4 ####[facility]ORYCLIA [id number] [address] pH adjusted to patient's actual temperature (BldV) 7.35 Normal 7.32-7.42 [facility] Comment on above: Order Comment: Speci men Type: VENOUS BLOOD SPECIMEN Performed By: #### 2 4344-4 ####[facility]ORYCLIA [id number] [address] Potassium [Moles/Vol] 3.6 mmol/L Normal 3.5-5.0 [facility] Comment on above: Order Comment: Speci men Type: VENOUS BLOOD SPECIMEN Performed By: #### 2 4344-4 ####[facility]ORYCLIA [id number] [address] SET VENTILATOR RESPIRATORY RATE (BPM) 18 BPM Normal [facility] Comment on above: Order Comment: Speci men Type: VENOUS BLOOD SPECIMEN Performed By: #### 2 4344-4 ####[facility]ORYCLIA [id number] [address] Sodium [Moles/Vol] 141 mmol/L Normal 136-144 [facility] Comment on above: Order Comment: Speci men Type: VENOUS BLOOD SPECIMEN Performed By: #### 2 4344-4 ####[facility]ORYCLIA [id number] [address] OF [facility] HIV 1+2 Ab IA Qlon 2 HIV 1 and 2 Ab IA.rapid Nom Normal [facility] Comment on above: Order Comment: Speci men Type: BLOOD SPECIMEN Result Comment: Test not indicated. Performed By: #### 3 1201-7, TOXMG ####[facility]ORYCLIA [id number] [address] HIV 1+2 Ab+HIV1 p24 Ag IA Ql Non-Reactive Normal Nonreactive [facility] Comment on above: Order Comment: Speci men Type: BLOOD SPECIMEN Result Comment: [place] Rev. Code 3701.243(E): This information has been [...] By: #### 3 1201-7, TOXMG ####[facility]ATORYCLIA [id number] [address] HIVINT Normal [facility] Comment on above: Order Comment: Speci men Type: BLOOD SPECIMEN Result Comment: No e vidence of HIV-1 or HIV-2 infection. Should recent infection be suspected, repeat testing may be considered 2-3 weeks after this draw. Performed By: #### 3 1201-7, TOXMG ####[facility]ATORYCLIA [id number] [address] [place] Magnesium SerPl-mCncon 06-03 Magnesium [Mass/Vol] 1.9 mg/dL Normal 1.7-2.3 [facility] Comment on above: Order Comment: Speci men Type: BLOOD SPECIMEN Performed By: #### 1 9123-9, 2777-1, 25205-4 ####[facility]ORYCLIA [id number] [address] [place] NUTRITIONon 06-03-2021 NUTRITION Normal [facility] Phosphate SerPl-mCncon 06-03 Phosphate [Mass/Vol] 1.9 mg/dL Low 2.7-4.8 [facility] Comment on above: Order Comment: Speci men Type: BLOOD SPECIMEN Performed By: #### 1 9123-9, 2777-1, 64819-3 ####[facility]ORYCLIA [id number] [address] TOXOPLASMOSIS IGM AND IGG AB on [...] By: #### 3 1201-7, TOXMG ####[facility]ORYCLIA [id number] [address] TOXO IGM QUAL Negative Normal Negative [facility] Comment on above: Order Comment: Speci men Type: BLOOD SPECIMEN Result Comment: No s erological evidence of recent exposure to Toxoplasma gondii.Negative <0.9 IndexEquivocal 0.9-0.99 IndexPositive >=1.0 Index Performed By: #### 3 1201-7, TOXMG ####[facility]ATORYCLIA [id number] [address] [place] DVT LOWER [...] Performed By: #### A LLBG ####[facility]ATORYCLIA [id number] [address] Body temperature 99.32 [degF] Normal [facility] Comment on above: Order Comment: Speci men Type: ARTERIAL BLOOD SPECIMEN Performed By: #### A LLBG ####[facility]ORYCLIA [id number] [address] CALCIUM IONIZED, PH CORRECTED 1.15 mmol/L Normal 1.08-1.30 [facility] Comment on above: Order Comment: Speci men Type: ARTERIAL BLOOD SPECIMEN Performed By: #### A LLBG ####[facility]ATORYCLIA [id number] [address] Calcium.ionized (BldV) [Mass/Vol] 1.13 mmol/L Normal 1.08-1.30 [facility] Comment on above: Order Comment: Speci men Type: ARTERIAL BLOOD SPECIMEN Performed By: #### A LLBG ####[facility]ATORYCLIA [id number] [address] Carboxyhemoglobin (BldA) [Mass fraction] 1.4 % Normal 0.0-2.0 [facility] Comment on above: Order Comment: Speci men Type: ARTERIAL BLOOD SPECIMEN Result Comment: Carb oxyhemoglobin Reference Range for Smokers: 2.0-8.0% Performed By: #### A LLBG ####[facility]ATORYCLIA [id number] [address] CO2 (Bld) [Partial pressure] 39 mm Hg Normal 36-46 [facility] Comment on above: Order Comment: Speci men Type: ARTERIAL BLOOD SPECIMEN Performed By: #### A LLBG ####[facility]ORYCLIA [id number] [address] CO2 [Moles/Vol] 23.4 mmol/L Normal 22-28 [facility] Comment on above: Order Comment: Speci men Type: ARTERIAL BLOOD SPECIMEN Performed By: #### A LLBG ####[facility]ORYCLIA [id number] [address] CO2 adjusted to patient's actual temperature (Bld) [Partial pressure] 40 mmHg Normal 36-46 [facility] Comment on above: Order Comment: Speci men Type: ARTERIAL BLOOD SPECIMEN Performed By: #### A LLBG ####[facility]ATORYCLIA [id number] [address] Glucose [Mass/Vol] 156 mg/dL High 60-105 [facility] Comment on above: Order Comment: Speci men Type: ARTERIAL BLOOD SPECIMEN Performed By: #### A LLBG ####[facility]ORYCLIA [id number] [address] HCO3 (Bld) [Moles/Vol] 26 mmol/L Normal 22-26 [facility] Comment on above: Order Comment: Speci men Type: ARTERIAL BLOOD SPECIMEN Performed By: #### A LLBG ####[facility]ORYCLIA [id number] [address] Hematocrit (Bld) [Volume fraction] 33.9 % Low 39.0-51.0 [facility] Comment on above: Order Comment: Speci men Type: ARTERIAL BLOOD SPECIMEN Performed By: #### A LLBG ####[facility]ORYCLIA [id number] [address] Hemoglobin (Bld) [Mass/Vol] 11.0 g/dL Low 13.0-17.0 [facility] Comment on above: Order Comment: Speci men Type: ARTERIAL BLOOD SPECIMEN Performed By: #### A LLBG ####[facility]ORYCLIA [id number] [address] Methemoglobin (Bld) [Mass fraction] % Normal 0.0-1.5 [facility] Comment on above: Order Comment: Speci men Type: ARTERIAL BLOOD SPECIMEN Performed By: #### A LLBG ####[facility]ATORYCLIA [id number] [address] O2 THERAPY Ventilator Normal [facility] Comment on above: Order Comment: Speci men Type: ARTERIAL BLOOD SPECIMEN Performed By: #### A LLBG ####[facility]ATORYCLIA [id number] [place] [address] [place] Oxygen (Bld) [Partial pressure] 70 mm Hg Low 85-95 [facility] Comment on above: Order Comment: Speci men Type: ARTERIAL BLOOD SPECIMEN Performed By: #### A LLBG ####[facility]ATORYCLIA [id number] [place], [place] [address] [place] [address] Oxygen adjusted to patient's actual temperature (Bld) [Partial pressure] 72.2 mmHg Low 85-95 [facility] Comment on above: Order Comment: Speci men Type: ARTERIAL BLOOD SPECIMEN Performed By: #### A LLBG ####[facility]ORYCLIA [id number] [address] OXYGEN SATURATION, ARTERIAL 96 % Normal 95-98 [facility] Comment on above: Order Comment: Speci men Type: ARTERIAL BLOOD SPECIMEN Performed By: #### A LLBG ####[facility]ORYCLIA [id number] [address] Oxyhemoglobin (BldA) [Mass fraction] 94 % Low 95-98 [facility] Comment on above: Order Comment: Speci men Type: ARTERIAL BLOOD SPECIMEN Performed By: #### A LLBG ####[facility]ORYCLIA [id number] [address] [place] pH (Bld) 7.43 [pH] Normal 7.35-7.45 [facility] Comment on above: Order Comment: Speci men Type: ARTERIAL BLOOD SPECIMEN Performed By: #### A LLBG ####[facility]ORYCLIA [id number] [address] pH adjusted to patient's actual temperature (Bld) 7.42 Normal 7.35-7.45 [facility] Comment on above: Order Comment: Speci men Type: ARTERIAL BLOOD SPECIMEN Performed By: #### A LLBG ####[facility]ORYCLIA [id number] [address] [place] Potassium [Moles/Vol] 2.6 mmol/L Low 3.5-5.0 [facility] Comment on above: Order Comment: Speci men Type: ARTERIAL BLOOD SPECIMEN Performed By: #### A LLBG ####[facility]ORYCLIA [id number] [address] Sodium [Moles/Vol] 142 mmol/L Normal 136-144 [facility] Comment on above: Order Comment: Speci men Type: ARTERIAL BLOOD SPECIMEN Performed By: #### A LLBG ####[facility]ORYCLIA [id number] [address] Ammonia Plas-sCncon 06-02-19 22 Ammonia (P) [Moles/Vol] 20 umol/L Normal 16-60 [facility] Comment on above: Order Comment: Speci men Type: BLOOD SPECIMEN Performed By: #### 1 6362-6 ####[facility]ORYCLIA [id number] [address] Bacteria CSF Culton 06-02-19 22 Bacteria identified Cx Nom (CSF) CULTURE, CSF: No growth 14 days GRAM STAIN: No organisms seen Rare Polymorphonuclear leukocytes Gram stain performed on cytospun specimen. Normal [facility] Comment on above: Performed By: #### 6 06-4 ####[facility]ORYCLIA [id number] [address] Basic metabolic 2000 panelon 06-02-2021 Anion gap [Moles/Vol] 10 mmol/L Normal 9-18 [facility] Comment on above: Order Comment: Speci men Type: BLOOD SPECIMEN Performed By: #### 2 4321-2, , 2776-05 ####[facility]ATORYCLIA [id number] [address] STATES OF [facility] Calcium [Mass/Vol] 8.1 mg/dL Low 8.5-10.2 [facility] Comment on above: Order Comment: Speci men Type: BLOOD SPECIMEN Performed By: #### 2 4321-2, , 2776-05 ####[facility]ATORYCLIA [id number] [place] [address] [place] Chloride [Moles/Vol] 108 mmol/L High 97-105 [facility] Comment on above: Order Comment: Speci men Type: BLOOD SPECIMEN Performed By: #### 2 4321-2, , 2776-05 ####[facility]ATORYCLIA [id number] [place] [address] [place] CO2 [Moles/Vol] 24 mmol/L Normal 22-30 [facility] Comment on above: Order Comment: Speci men Type: BLOOD SPECIMEN Performed By: #### 2 1-2, , 2776-05 ####[facility]ATORYCLIA [id number] [address] STATES OF [facility] Creatinine [Mass/Vol] 0.78 mg/dL Normal 0.73-1.22 [facility] Comment on above: Order Comment: Speci men Type: BLOOD SPECIMEN Performed By: #### 2 1-2, , 2776-05 ####[facility]ATORYCLIA [id number] [address] [place] GFR/1.73 sq M.predicted [...] 2 4321-2, , 2776-05 ####[facility]ATORYCLIA [id number] [address] [place] Glucose [Mass/Vol] 162 mg/dL High 74-99 [facility] Comment on above: Order Comment: Speci men Type: BLOOD SPECIMEN Result Comment: The [place] [employer] (ADA) provides guidance for cutoff [...] Standards of Medical Care in Diabetes 2016, [place] [employer]. Diabetes Care. 2016.39(Suppl 1). Performed By: #### 2 1-2, , 2776-05 ####[facility]ATORYCLIA [id number] [address] [place] Potassium [Moles/Vol] 2.7 mmol/L Low 3.7-5.1 [facility] Comment on above: Order Comment: Speci men Type: BLOOD SPECIMEN Performed By: #### 2 4320-2, , 2776-05 ####[facility]ORYCLIA [id number] [address] STATES [facility] Sodium [Moles/Vol] 142 mmol/L Normal 136-144 [facility] Comment on above: Order Comment: Speci men Type: BLOOD SPECIMEN Performed By: #### 2 1-2, , 2776-05 ####[facility]ATORYCLIA [id number] [place] [address] [place] Urea nitrogen [Mass/Vol] 12 mg/dL Normal 9-24 [facility] Comment on above: Order Comment: Speci men Type: BLOOD SPECIMEN Performed By: #### 2 1-2, , 2776-05 ####[facility]ORYCLIA [id number] [address] STATES [facility] CBC panel Auto (Bld)on 06-02 Erythrocyte distribution width (RBC) [Ratio] 15.0 % Normal 11.5-15.0 [facility] Comment on above: Order Comment: Speci men Type: BLOOD SPECIMEN Performed By: #### 5 8410-2 ####[facility]ATORYCLIA [id number] [address] Hematocrit (Bld) [Volume fraction] 34.3 % Low 39.0-51.0 [facility] Comment on above: Order Comment: Speci men Type: BLOOD SPECIMEN Performed By: #### 5 8410-2 ####[facility]ORYCLIA [id number] [address] Hemoglobin (Bld) [Mass/Vol] 10.3 g/dL Low 13.0-17.0 [facility] Comment on above: Order Comment: Speci men Type: BLOOD SPECIMEN Performed By: #### 5 8410-2 ####[facility]ORYCLIA [id number] [address] MCH (RBC) [Entitic mass] 27.0 pg Normal 26.0-34.0 [facility] Comment on above: Order Comment: Speci men Type: BLOOD SPECIMEN Performed By: #### 5 8410-2 ####[facility]ORYCLIA [id number] [address] MCHC (RBC) [Mass/Vol] 30.0 g/dL Low 30.5-36.0 [facility] Comment on above: Order Comment: Speci men Type: BLOOD SPECIMEN Performed By: #### 5 8410-2 ####[facility]ORYCL[facility] [id number] [address] MCV (RBC) [Entitic vol] 90.0 fL Normal 80.0-100.0 [facility] Comment on above: Order Comment: Speci men Type: BLOOD SPECIMEN Performed By: #### 5 8410-2 ####[facility]ATORYCL[facility] [id number] [address] Nucleated RBC (Bld) [#/Vol] 10*3/uL Normal <0.01 [facility] Comment on above: Order Comment: Speci men Type: BLOOD SPECIMEN Performed By: #### 5 8410-2 ####[facility]ORYCL[facility] [id number] [address] Platelet mean volume (Bld) [Entitic vol] 10.2 fL Normal 9.0-12.7 [facility] Comment on above: Order Comment: Speci men Type: BLOOD SPECIMEN Performed By: #### 5 8410-2 ####[facility]ATORYCL[facility] [id number] [address] Platelets (Bld) [#/Vol] 194 10*3/uL Normal 150-400 [facility] Comment on above: Order Comment: Speci men Type: BLOOD SPECIMEN Performed By: #### 5 8410-2 ####[facility]ATORYCLIA [id number] [address] RBC (Bld) [#/Vol] 3.81 10*6/uL Low 4.20-6.00 [facility] Comment on above: Order Comment: Speci men Type: BLOOD SPECIMEN Performed By: #### 5 8410-2 ####[facility]ORYCLIA [id number] [address] WBC (Bld) [#/Vol] 9.22 10*3/uL Normal 3.70-11.00 [facility] Comment on above: Order Comment: Speci men Type: BLOOD SPECIMEN Performed By: #### 5 8410-2 ####[facility]ORYCLIA [id number] [address] CONSULT PROGon 06-02-2021 CONSULT PROG Normal [facility] CSF MANUAL DIFFon 06-02-2021 DIF TTL, CSF 25 cells counted Normal [facility] Comment on above: Order Comment: Speci men Type: CEREBROSPINAL FLUID Performed By: #### 3 4563-7, [id number], [id number] ####[facility]ORYCLIA [id number] [place], [place] [id number] [place] [address] OF [place] LYMPH%, CSF 4 % Low 50-90 [facility] Comment on above: Order Comment: Speci men Type: CEREBROSPINAL FLUID Performed By: #### 3 4563-7, [id number], [id number] ####[facility]ORYCLIA [id number] [address] STATES [place] MACRO%, CSF 4 % High <1 [facility] Comment on above: Order Comment: Speci men Type: CEREBROSPINAL FLUID Performed By: #### 3 4563-7, [id number], [id number] ####[facility]ORYCL[facility] [id number] [address] OF [place] MONO%, CSF 20 % Normal 10-50 [facility] Comment on above: Order Comment: Speci men Type: CEREBROSPINAL FLUID Performed By: #### 3 4563-7, [id number], [id number] ####[facility]ORYCLIA [id number] [address] OF [place] NEUT%, CSF 72 % High 0-3 [facility] Comment on above: Order Comment: Speci men Type: CEREBROSPINAL FLUID Performed By: #### 3 4563-7, [id number], [id number] ####[facility]ORYCLIA [id number] [address] CSF PATHOLOGIST INTERP (LAB REFLEX ORDER-NO BILL)on 06-02-2021 CSF STAFF REVIEW Negative [facility] Comment on above: Order Comment: Speci men Type: CEREBROSPINAL FLUID Performed By: #### 3 4563-7, [id number], [id number] ####[facility]ORYCLIA [id number] [address] Pathologist name Reviewed by Amador Stevens MD [facility] Comment on above: Order Comment: Speci men Type: CEREBROSPINAL FLUID Performed By: #### 3 4563-7, [id number], [id number] ####[facility]ATORYCLIA [id number] [address] Cell count panel (CSF)on Clarity (CSF) Clear Normal Clear [facility] Comment on above: Order Comment: Speci men Type: CEREBROSPINAL FLUID Performed By: #### 3 4563-7, [id number], [id number] ####[facility]ORYCLIA [id number] [address] Clarity (Unsp spec) Not Indicated Normal Clear [facility] Comment on above: Order Comment: Speci men Type: CEREBROSPINAL FLUID Performed By: #### 3 4563-7, [id number], [id number] ####[facility]ORYCLIA [id number] [address] Color (CSF) Colorless Normal Colorless [facility] Comment on above: Order Comment: Speci men Type: CEREBROSPINAL FLUID Performed By: #### 3 4563-7, [id number], [id number] ####[facility]ORYCLIA [id number] [address] Color (Spun CSF) Not Indicated Normal Colorless [facility] Comment on above: Order Comment: Speci men Type: CEREBROSPINAL FLUID Performed By: #### 3 4563-7, FHI9011, [id number] ####[facility]ORYCLIA [id number] [address] CSF TUBE NUMBER Sterile Container Normal [facility] Comment on above: Order Comment: Speci men Type: CEREBROSPINAL FLUID Performed By: #### 3 4563-7, [id number], YOC3566 ####[facility]ORYCLIA [id number] [address] RBC Manual cnt (CSF) [#/Vol] 117 cells/uL High 0-5 [facility] Comment on above: Order Comment: Speci men Type: CEREBROSPINAL FLUID Performed By: #### 3 4563-7, [id number], [id number] ####[facility]ORYCLIA [id number] [address] STATES OF [facility] WBC Manual cnt (CSF) [#/Vol] 1 cells/uL Normal 0-5 [facility] Comment on above: Order Comment: Speci men Type: CEREBROSPINAL FLUID Performed By: #### 3 4563-7, [id number], [id number] ####[facility]ATORYCLIA [id number] [address] STATES [place] Glucose CSF-mCncon 2 [...] Glucose HK (GLUC3) [package insert V 12.0 Peruvian]. [employer], [place], [place]. September 2015. 2. Michelle Moore, Loki HGarfield (2015). Chapter 7: Glucose and Lactate. Marianela Alcocer al.(eds.), Cerebrospinal Fluid in Clinical Neurology. [place]: [employer]. Performed By: #### 2 342-4 ####[facility]ATORYCLIA [id number] [address] HEPATIC FUNCTION PNLon 06-02 Albumin [Mass/Vol] 3.2 g/dL Low 3.9-4.9 [facility] Comment on above: Order Comment: Speci men Type: BLOOD SPECIMEN Performed By: #### H [place], 99437-5 ####[facility]ATORYCLIA [id number] [address] [place] ALP [Catalytic activity/Vol] 67 U/L Normal 38-113 [facility] Comment on above: Order Comment: Speci men Type: BLOOD SPECIMEN Performed By: #### [place], [address]-4 ####[facility]ORYCLIA [id number] [address] STATES OF [facility] ALT With P-5'-P [Catalytic activity/Vol] 16 U/L Normal 10-54 [facility] Comment on above: Order Comment: Speci men Type: BLOOD SPECIMEN Performed By: #### [place], [address]-2 ####[facility]ATORYCLIA [id number] [address] AST With P-5'-P [Catalytic activity/Vol] 25 U/L Normal 14-40 [facility] Comment on above: Order Comment: Speci men Type: BLOOD SPECIMEN Performed By: #### [place] KATHIE, 62048-0 ####[facility]ATORYCLIA [id number] [address] Bilirubin [Mass/Vol] 0.2 mg/dL Normal 0.2-1.3 [facility] Comment on above: Order Comment: Speci men Type: BLOOD SPECIMEN Performed By: #### [place] KATHIE, ####[facility]ATORYCLIA [id number] [address] Bilirubin.conjugated [Mass/Vol] mg/dL Normal <0.2 [facility] Comment on above: Order Comment: Speci men Type: BLOOD SPECIMEN Performed By: #### [place] KATHIE, 19087-8 ####[facility]ATORYCLIA [id number] [address] Protein [Mass/Vol] 5.8 g/dL Low 6.3-8.0 [facility] Comment on above: Order Comment: Speci men Type: BLOOD SPECIMEN Performed By: #### [place], [address]-2 ####[facility]ATORYCLIA [id number] [address] MRI BRAIN WO/W IVCONon 06-02 MRI BRAIN WO/W IVCON Normal [facility] Magnesium SerPl-mCncon 06-02 Magnesium [Mass/Vol] 2.0 mg/dL Normal 1.7-2.3 [facility] Comment on above: Order Comment: Speci men Type: BLOOD SPECIMEN Performed By: #### 2 4321-2, 71305-8, 2777-1 ####[facility]ORYCLIA [id number] [address] NT-proBNP SerPl-ncon 06-02 Natriuretic peptide.B prohormone N-Terminal [Mass/Vol] 296 pg/mL High <125 [facility] Comment on above: Order Comment: Speci men Type: BLOOD SPECIMEN Performed By: #### [place], [address]-3 ####[facility]ATORYCLIA [id number] [address] OF [facility] POTASSIUM BLDon 06-02-2021 Potassium [Moles/Vol] 3.2 mmol/L Low 3.7-5.1 [facility] Comment on above: Order Comment: Speci men Type: BLOOD SPECIMEN Performed By: #### K 1 ####[facility]ATORYCLIA [id number] [address] STATES OF [facility] Phosph[facility]Pl[facility] Phosphate [Mass/Vol] 2.1 mg/dL Low 2.7-4.8 [facility] Comment on above: Order Comment: Speci men Type: BLOOD SPECIMEN Performed By: #### 2 4321-2, 74793-4, 2777-1 ####[facility]ATORYCLIA [id number] [address] [place] Vancomycin random [Mass/Vol] [...] Performed By: #### 4 091-5 ####[facility]ATORYCLIA [id number] [address] [place] ALLIED HEALTHon 06-01-2021 ALLIED HEALTH Normal [facility] ALLIED HEALTH Normal [facility] ALLIED HEALTH Normal [facility] ARTERIAL BLOOD GASESon 06-01 Base excess Calc (Bld) [Moles/Vol] 1 mmol/L Normal 0-2 [facility] Comment on above: Order Comment: Speci men Type: ARTERIAL BLOOD SPECIMEN Performed By: #### A LLBG ####[facility]ATORYCLIA [id number] [address] Body temperature 97.52 [degF] Normal [facility] Comment on above: Order Comment: Speci men Type: ARTERIAL BLOOD SPECIMEN Performed By: #### A LLBG ####[facility]ATORYCLIA [id number] [address] CALCIUM IONIZED, PH CORRECTED 1.13 mmol/L Normal 1.08-1.30 [facility] Comment on above: Order Comment: Speci men Type: ARTERIAL BLOOD SPECIMEN Performed By: #### A LLBG ####[facility]ORYCLIA [id number] [address] Calcium.ionized (BldV) [Mass/Vol] 1.12 mmol/L Normal 1.08-1.30 [facility] Comment on above: Order Comment: Speci men Type: ARTERIAL BLOOD SPECIMEN Performed By: #### A LLBG ####[facility]ORYCLIA [id number] [address] Carboxyhemoglobin (BldA) [Mass fraction] 1.6 % Normal 0.0-2.0 [facility] Comment on above: Order Comment: Speci men Type: ARTERIAL BLOOD SPECIMEN Result Comment: Carb oxyhemoglobin Reference Range for Smokers: 2.0-8.0% Performed By: #### A LLBG ####[facility]ORYCLIA [id number] [address] CO2 (Bld) [Partial pressure] 41 mm Hg Normal 36-46 [facility] Comment on above: Order Comment: Speci men Type: ARTERIAL BLOOD SPECIMEN Performed By: #### A LLBG ####[facility]ORYCLIA [id number] [address] CO2 [Moles/Vol] 23.0 mmol/L Normal 22-28 [facility] Comment on above: Order Comment: Speci men Type: ARTERIAL BLOOD SPECIMEN Performed By: #### A LLBG ####[facility]ORYCLIA [id number] [address] CO2 adjusted to patient's actual temperature (Bld) [Partial pressure] 40 mmHg Normal 36-46 [facility] Comment on above: Order Comment: Speci men Type: ARTERIAL BLOOD SPECIMEN Performed By: #### A LLBG ####[facility]ORYCLIA [id number] [address] [place] FIO2 40 % Normal [facility] Comment on above: Order Comment: Speci men Type: ARTERIAL BLOOD SPECIMEN Performed By: #### A LLBG ####[facility]ORYCLIA [id number] [address] Glucose [Mass/Vol] 127 mg/dL High 60-105 [facility] Comment on above: Order Comment: Speci men Type: ARTERIAL BLOOD SPECIMEN Performed By: #### A LLBG ####[facility]ORYCLIA [id number] [address] HCO3 (Bld) [Moles/Vol] 25 mmol/L Normal 22-26 [facility] Comment on above: Order Comment: Speci men Type: ARTERIAL BLOOD SPECIMEN Performed By: #### A LLBG ####[facility]ORYCLIA [id number] [address] OF [place] Hematocrit (Bld) [Volume fraction] 33.7 % Low 39.0-51.0 [facility] Comment on above: Order Comment: Speci men Type: ARTERIAL BLOOD SPECIMEN Performed By: #### A LLBG ####[facility]ORYCLIA [id number] [address] Hemoglobin (Bld) [Mass/Vol] 10.9 g/dL Low 13.0-17.0 [facility] Comment on above: Order Comment: Speci men Type: ARTERIAL BLOOD SPECIMEN Performed By: #### A LLBG ####[facility]ORYCLIA [id number] [address] OF [place] INHALED TIDAL VOLUME (ML) 500 Normal [facility] Comment on above: Order Comment: Speci men Type: ARTERIAL BLOOD SPECIMEN Performed By: #### A LLBG ####[facility]ORYCLIA [id number] [address] INVASIVE VENTILATOR MODE PRVC=Pressure Regulated Volume Control Normal [facility] Comment on above: Order Comment: Speci men Type: ARTERIAL BLOOD SPECIMEN Performed By: #### A LLBG ####[facility]ORYCLIA [id number] [address] OF [place] Methemoglobin (Bld) [Mass fraction] % Normal 0.0-1.5 [facility] Comment on above: Order Comment: Speci men Type: ARTERIAL BLOOD SPECIMEN Performed By: #### A LLBG ####[facility]ORYCLIA [id number] [address] OF [place] O2 THERAPY Ventilator Normal [facility] Comment on above: Order Comment: Speci men Type: ARTERIAL BLOOD SPECIMEN Performed By: #### A LLBG ####[facility]ORYCLIA [id number] [address] OF [place] Oxygen (Bld) [Partial pressure] 64 mm Hg Low 85-95 [facility] Comment on above: Order Comment: Speci men Type: ARTERIAL BLOOD SPECIMEN Performed By: #### A LLBG ####[facility]ORYCLIA [id number] [address] OF [place] Oxygen adjusted to patient's actual temperature (Bld) [Partial pressure] 61.8 mmHg Low 85-95 [facility] Comment on above: Order Comment: Speci men Type: ARTERIAL BLOOD SPECIMEN Performed By: #### A LLBG ####[facility]ORYCLIA [id number] [address] OF [place] OXYGEN SATURATION, ARTERIAL 94 % Low 95-98 [facility] Comment on above: Order Comment: Speci men Type: ARTERIAL BLOOD SPECIMEN Performed By: #### A LLBG ####[facility]ORYCLIA [id number] [address] Oxyhemoglobin (BldA) [Mass fraction] 92 % Low 95-98 [facility] Comment on above: Order Comment: Speci men Type: ARTERIAL BLOOD SPECIMEN Performed By: #### A LLBG ####[facility]ORYCLIA [id number] [address] PEEP/CPAP 5 cmH2O Normal [facility] Comment on above: Order Comment: Speci men Type: ARTERIAL BLOOD SPECIMEN Performed By: #### A LLBG ####[facility]ORYCLIA [id number] [address] pH (Bld) 7.40 [pH] Normal 7.35-7.45 [facility] Comment on above: Order Comment: Speci men Type: ARTERIAL BLOOD SPECIMEN Performed By: #### A LLBG ####[facility]ORYCLIA [id number] [address] pH adjusted to patient's actual temperature (Bld) 7.41 Normal 7.35-7.45 [facility] Comment on above: Order Comment: Speci men Type: ARTERIAL BLOOD SPECIMEN Performed By: #### A LLBG ####[facility]ORYCLIA [id number] [address] Potassium [Moles/Vol] 3.1 mmol/L Low 3.5-5.0 [facility] Comment on above: Order Comment: Speci men Type: ARTERIAL BLOOD SPECIMEN Performed By: #### A LLBG ####[facility]ORYCLIA [id number] [address] SET VENTILATOR RESPIRATORY RATE (BPM) 18 BPM Normal [facility] Comment on above: Order Comment: Speci men Type: ARTERIAL BLOOD SPECIMEN Performed By: #### A LLBG ####[facility]ORYCLIA [id number] [address] Sodium [Moles/Vol] 141 mmol/L Normal 136-144 [facility] Comment on above: Order Comment: Speci men Type: ARTERIAL BLOOD SPECIMEN Performed By: #### A LLBG ####[facility]ORYCLIA [id number] [address] BASE DEFICIT, ARTERIAL -1.0 mmol/L Normal -2-[address] [facility] Comment on above: Order Comment: Speci men Type: ARTERIAL BLOOD SPECIMEN Performed By: #### A LLBG ####[facility]ATORYCLIA [id number] [address] Body temperature 98.24 [degF] Normal [facility] Comment on above: Order Comment: Speci men Type: ARTERIAL BLOOD SPECIMEN Performed By: #### A LLBG ####[facility]ORYCLIA [id number] [address] CALCIUM IONIZED, PH CORRECTED 1.08 mmol/L Normal 1.08-1.30 [facility] Comment on above: Order Comment: Speci men Type: ARTERIAL BLOOD SPECIMEN Performed By: #### A LLBG ####[facility]ORYCLIA [id number] [address] Calcium.ionized (BldV) [Mass/Vol] 1.15 mmol/L Normal 1.08-1.30 [facility] Comment on above: Order Comment: Speci men Type: ARTERIAL BLOOD SPECIMEN Performed By: #### A LLBG ####[facility]ORYCLIA [id number] [address] Carboxyhemoglobin (BldA) [Mass fraction] 1.4 % Normal 0.0-2.0 [facility] Comment on above: Order Comment: Speci men Type: ARTERIAL BLOOD SPECIMEN Result Comment: Carb oxyhemoglobin Reference Range for Smokers: 2.0-8.0% Performed By: #### A LLBG ####[facility]ATORYCLIA [id number] [place] [address] [place] CO2 (Bld) [Partial pressure] 59 mm Hg High 36-46 [facility] Comment on above: Order Comment: Speci men Type: ARTERIAL BLOOD SPECIMEN Performed By: #### A LLBG ####[facility]ORYCLIA [id number] [address] CO2 [Moles/Vol] 24.5 mmol/L Normal 22-28 [facility] Comment on above: Order Comment: Speci men Type: ARTERIAL BLOOD SPECIMEN Performed By: #### A LLBG ####[facility]ORYCLIA [id number] [address] CO2 adjusted to patient's actual temperature (Bld) [Partial pressure] 58 mmHg High 36-46 [facility] Comment on above: Order Comment: Speci men Type: ARTERIAL BLOOD SPECIMEN Performed By: #### A LLBG ####[facility]ORYCLIA [id number] [address] FIO2 40 % Normal [facility] Comment on above: Order Comment: Speci men Type: ARTERIAL BLOOD SPECIMEN Performed By: #### A LLBG ####[facility]ORYCLIA [id number] [address] Glucose [Mass/Vol] 128 mg/dL High 60-105 [facility] Comment on above: Order Comment: Speci men Type: ARTERIAL BLOOD SPECIMEN Performed By: #### A LLBG ####[facility]ORYCLIA [id number] [address] OF [place] HCO3 (Bld) [Moles/Vol] 26 mmol/L Normal 22-26 [facility] Comment on above: Order Comment: Speci men Type: ARTERIAL BLOOD SPECIMEN Performed By: #### A LLBG ####[facility]ORYCLIA [id number] [address] Hematocrit (Bld) [Volume fraction] 35.6 % Low 39.0-51.0 [facility] Comment on above: Order Comment: Speci men Type: ARTERIAL BLOOD SPECIMEN Performed By: #### A LLBG ####[facility]ORYCLIA [id number] [address] OF [place] Hemoglobin (Bld) [Mass/Vol] 11.5 g/dL Low 13.0-17.0 [facility] Comment on above: Order Comment: Speci men Type: ARTERIAL BLOOD SPECIMEN Performed By: #### A LLBG ####[facility]ORYCLIA [id number] [address] INHALED TIDAL VOLUME (ML) 500 Normal [facility] Comment on above: Order Comment: Speci men Type: ARTERIAL BLOOD SPECIMEN Performed By: #### A LLBG ####[facility]ORYCLIA [id number] [address] INVASIVE VENTILATOR MODE PRVC=Pressure Regulated Volume Control [facility] Comment on above: Order Comment: Speci men Type: ARTERIAL BLOOD SPECIMEN Performed By: #### A LLBG ####[facility]ORYCLIA [id number] [address] Methemoglobin (Bld) [Mass fraction] % Normal 0.0-1.5 [facility] Comment on above: Order Comment: Speci men Type: ARTERIAL BLOOD SPECIMEN Performed By: #### A LLBG ####[facility]ORYCLIA [id number] [address] OF [place] O2 THERAPY Ventilator Normal [facility] Comment on above: Order Comment: Speci men Type: ARTERIAL BLOOD SPECIMEN Performed By: #### A LLBG ####[facility]ORYCLIA [id number] [address] OF [place] Oxygen (Bld) [Partial pressure] 88 mm Hg Normal 85-95 [facility] Comment on above: Order Comment: Speci men Type: ARTERIAL BLOOD SPECIMEN Performed By: #### A LLBG ####[facility]ORYCLIA [id number] [address] [place] Oxygen adjusted to patient's actual temperature (Bld) [Partial pressure] 86.5 mmHg Normal 85-95 [facility] Comment on above: Order Comment: Speci men Type: ARTERIAL BLOOD SPECIMEN Performed By: #### A LLBG ####[facility]ORYCLIA [id number] [address] OXYGEN SATURATION, ARTERIAL 95 % Normal 95-98 [facility] Comment on above: Order Comment: Speci men Type: ARTERIAL BLOOD SPECIMEN Performed By: #### A LLBG ####[facility]ORYCLIA [id number] [address] Oxyhemoglobin (BldA) [Mass fraction] 93 % Low 95-98 [facility] Comment on above: Order Comment: Speci men Type: ARTERIAL BLOOD SPECIMEN Performed By: #### A LLBG ####[facility]CLIA [id number] [address] PEEP/CPAP 5 cmH2O Normal [facility] Comment on above: Order Comment: Speci men Type: ARTERIAL BLOOD SPECIMEN Performed By: #### A LLBG ####[facility]ORYCLIA [id number] [address] pH (Bld) 7.27 [pH] Low 7.35-7.45 [facility] Comment on above: Order Comment: Speci men Type: ARTERIAL BLOOD SPECIMEN Performed By: #### A LLBG ####[facility]ORYCLIA [id number] [address] pH adjusted to patient's actual temperature (Bld) 7.28 Low 7.35-7.45 [facility] Comment on above: Order Comment: Speci men Type: ARTERIAL BLOOD SPECIMEN Performed By: #### A LLBG ####[facility]ORYCLIA [id number] [address] Potassium [Moles/Vol] 3.3 mmol/L Low 3.5-5.0 [facility] Comment on above: Order Comment: Speci men Type: ARTERIAL BLOOD SPECIMEN Performed By: #### A LLBG ####[facility]ORYCLIA [id number] [address] SET VENTILATOR RESPIRATORY RATE (BPM) 14 BPM Normal [facility] Comment on above: Order Comment: Speci men Type: ARTERIAL BLOOD SPECIMEN Performed By: #### A LLBG ####[facility]ORYCLIA [id number] [address] Sodium [Moles/Vol] 141 mmol/L Normal 136-144 [facility] Comment on above: Order Comment: Speci men Type: ARTERIAL BLOOD SPECIMEN Performed By: #### A LLBG ####[facility]ORYCLIA [id number] [address] Bacteria CSF Culton 06-01-19 22 Bacteria identified Cx Nom (CSF) CULTURE, CSF: No growth 14 days GRAM STAIN: No organisms seen Rare Polymorphonuclear leukocytes Moderate Red Blood Cells Gram stain performed on cytospun specimen. Normal [facility] Comment on above: Performed By: #### 6 06-4 ####[facility]ORYCLIA [id number] [address] [place] Bacteria Spec Resp Culton Bacteria identified Respiratory culture Nom (Unsp spec) CULTURE, RESPIRATORY: No growth 2 days GRAM STAIN: No organisms seen No Polymorphonuclear Leukocytes Normal [facility] Comment on above: Performed By: #### 3 2355-0 ####[facility]ATORYCLIA [id number] [address] OF [facility] Basic metabolic 2000 panelon 06-01-2021 Anion gap [Moles/Vol] 8 mmol/L Low 9-18 [facility] Comment on above: Order Comment: Speci men Type: BLOOD SPECIMEN Performed By: #### 2 4321-2, 30392-7, 2777-1 ####[facility]ORYCLIA [id number] [address] Calcium [Mass/Vol] 7.8 mg/dL Low 8.5-10.2 [facility] Comment on above: Order Comment: Speci men Type: BLOOD SPECIMEN Performed By: #### 2 4321-2, , 2776-05 ####[facility]ORYCLIA [id number] [address] STATES OF [facility] Chloride [Moles/Vol] 109 mmol/L High 97-105 [facility] Comment on above: Order Comment: Speci men Type: BLOOD SPECIMEN Performed By: #### 2 1-2, , 2776-05 ####[facility]ORYCLIA [id number] [address] STATES [facility] CO2 [Moles/Vol] 26 mmol/L Normal 22-30 [facility] Comment on above: Order Comment: Speci men Type: BLOOD SPECIMEN Performed By: #### 2 1-2, , 2776-05 ####[facility]ORYCLIA [id number] [address] STATES OF [facility] Creatinine [Mass/Vol] 0.82 mg/dL Normal 0.73-1.22 [facility] Comment on above: Order Comment: Speci men Type: BLOOD SPECIMEN Performed By: #### 2 4320-2, , 2776-05 ####[facility] LABORATORYCLIA [id number] [address] [place] GFR/1.73 sq M.predicted [...] #### 2 1-2, , 2776-05 ####[facility]ATORYCLIA [id number] [place] [address] [place] Glucose [Mass/Vol] 105 mg/dL High 74-99 [facility] Comment on above: Order Comment: Speci men Type: BLOOD SPECIMEN Result Comment: The [place] Diabetes Association (ADA) provides guidance for cutoff [...] Standards of Medical Care in Diabetes 2016, [place] [employer]. Diabetes Care. 2016.39(Suppl 1). Performed By: #### 2 4320-2, , 2776-05 ####[facility]ATORYCLIA [id number] [place] [address] [place] Potassium [Moles/Vol] 3.8 mmol/L Normal 3.7-5.1 [facility] Comment on above: Order Comment: Speci men Type: BLOOD SPECIMEN Performed By: #### 2 4320-2, , 2776-05 ####[facility]ATORYCLIA [id number] [place] [address] [place] Sodium [Moles/Vol] 143 mmol/L Normal 136-144 [facility] Comment on above: Order Comment: Speci men Type: BLOOD SPECIMEN Performed By: #### 2 4320-2, , 2776-05 ####[facility]ATORYCLIA [id number] [address] [place] Urea nitrogen [Mass/Vol] 15 mg/dL Normal 9-24 [facility] Comment on above: Order Comment: Speci men Type: BLOOD SPECIMEN Performed By: #### 2 4320-2, , 2777-1 ####[facility]ATORYCLIA [id number] [address] CBC panel Auto (Bld)on 06-01 Erythrocyte distribution width (RBC) [Ratio] 15.4 % High 11.5-15.0 [facility] Comment on above: Order Comment: Speci men Type: BLOOD SPECIMEN Performed By: #### 5 8410-2 ####[facility]ATORYCLIA [id number] [address] Hematocrit (Bld) [Volume fraction] 38.4 % Low 39.0-51.0 [facility] Comment on above: Order Comment: Speci men Type: BLOOD SPECIMEN Performed By: #### 5 8410-2 ####[facility]ORYCLIA [id number] [address] Hemoglobin (Bld) [Mass/Vol] 11.1 g/dL Low 13.0-17.0 [facility] Comment on above: Order Comment: Speci men Type: BLOOD SPECIMEN Performed By: #### 5 8410-2 ####[facility]ATORYCLIA [id number] [address] MCH (RBC) [Entitic mass] 26.9 pg Normal 26.0-34.0 [facility] Comment on above: Order Comment: Speci men Type: BLOOD SPECIMEN Performed By: #### 5 8410-2 ####[facility]ORYCLIA [id number] [address] MCHC (RBC) [Mass/Vol] 28.9 g/dL Low 30.5-36.0 [facility] Comment on above: Order Comment: Speci men Type: BLOOD SPECIMEN Performed By: #### 5 8410-2 ####[facility]ORYCLIA [id number] [address] MCV (RBC) [Entitic vol] 93.2 fL Normal 80.0-100.0 [facility] Comment on above: Order Comment: Speci men Type: BLOOD SPECIMEN Performed By: #### 5 8410-2 ####[facility]ATORYCLIA [id number] [address] Nucleated RBC (Bld) [#/Vol] 10*3/uL Normal <0.01 [facility] Comment on above: Order Comment: Speci men Type: BLOOD SPECIMEN Performed By: #### 5 8410-2 ####[facility]ATORYCLIA [id number] [address] Platelet mean volume (Bld) [Entitic vol] 10.2 fL Normal 9.0-12.7 [facility] Comment on above: Order Comment: Speci men Type: BLOOD SPECIMEN Performed By: #### 5 8410-2 ####[facility]ORYCLIA [id number] [address] Platelets (Bld) [#/Vol] 231 10*3/uL Normal 150-400 [facility] Comment on above: Order Comment: Speci men Type: BLOOD SPECIMEN Performed By: #### 5 8410-2 ####[facility]ATORYCLIA [id number] [address] RBC (Bld) [#/Vol] 4.12 10*6/uL Low 4.20-6.00 [facility] Comment on above: Order Comment: Speci men Type: BLOOD SPECIMEN Performed By: #### 5 8410-2 ####[facility]ATORYCLIA [id number] [address] OF [facility] WBC (Bld) [#/Vol] 10.99 10*3/uL Normal 3.70-11.00 [facility] Comment on above: Order Comment: Speci men Type: BLOOD SPECIMEN Performed By: #### 5 8410-2 ####[facility]ORYCLIA [id number] [address] OF [facility] CONSULT PROGon 06-01-2021 CONSULT PROG Normal [facility] CSF MANUAL DIFFon 06-01-2021 DIF TTL, CSF 100 cells counted Normal [facility] Comment on above: Order Comment: Speci men Type: CEREBROSPINAL FLUID Performed By: #### 3 4563-7, [id number] ####[facility]ATORYCLIA [id number] [place], [place] [id number] [place] [address] LYMPH%, CSF 11 % Low 50-90 [facility] Comment on above: Order Comment: Speci men Type: CEREBROSPINAL FLUID Performed By: #### 3 4563-7, [id number] ####[facility]ATORYCLIA [id number] [address] [place] MONO%, CSF 10 % Normal 10-50 [facility] Comment on above: Order Comment: Speci men Type: CEREBROSPINAL FLUID Performed By: #### 3 4563-7, [id number] ####[facility]ORYCLIA [id number] [address] NEUT%, CSF 79 % High 0-3 [facility] Comment on above: Order Comment: Speci men Type: CEREBROSPINAL FLUID Performed By: #### 3 4563-7, [id number] ####[facility]ORYCLIA [id number] [address] BRAIN WO IVCONon 06-01-19 CT BRAIN WO IVCON Normal [facility] Cell count panel (CSF)on Clarity (CSF) Clear Normal Clear [facility] Comment on above: Order Comment: Speci men Type: CEREBROSPINAL FLUID Performed By: #### 3 4563-7, [id number] ####[facility]ORYCLIA [id number] [address] Clarity (Unsp spec) Not Indicated Normal Clear [facility] Comment on above: Order Comment: Speci men Type: CEREBROSPINAL FLUID Performed By: #### 3 4563-7, [id number] ####[facility]ORYCLIA [id number] [address] Color (CSF) Colorless Normal Colorless [facility] Comment on above: Order Comment: Speci men Type: CEREBROSPINAL FLUID Performed By: #### 3 4563-7, [id number] ####[facility] LABORATORYCLIA [id number] [address] Color (Spun CSF) Not Indicated Normal Colorless [facility] Comment on above: Order Comment: Speci men Type: CEREBROSPINAL FLUID Performed By: #### 3 4563-7, [id number] ####[facility]ATORYCLIA [id number] [address] CSF TUBE NUMBER Sterile Container Normal [facility] Comment on above: Order Comment: Speci men Type: CEREBROSPINAL FLUID Performed By: #### 3 4563-7, [id number] ####[facility] LABORATORYCLIA [id number] [address] RBC Manual cnt (CSF) [#/Vol] 171 cells/uL High 0-5 [facility] Comment on above: Order Comment: Speci men Type: CEREBROSPINAL FLUID Performed By: #### 3 4563-7, [id number] ####[facility]ORATORYCLIA [id number] [address] WBC Manual cnt (CSF) [#/Vol] 5 cells/uL Normal 0-5 [facility] Comment on above: Order Comment: Speci men Type: CEREBROSPINAL FLUID Performed By: #### 3 4563-7, [id number] ####[facility]ATORYCLIA [id number] [address] FUNGAL CULTUREon 06-01-2021 FUNGAL CULTURE CULTURE, FUNGAL: No Fungus isolated after 28 days Normal [facility] Comment on above: Performed By: #### F CUL ####[facility]ATORYCLIA [id number] [address] Glucose CSF-mCncon Glucose (CSF) [Mass/Vol] 78 mg/dL High 40-70 [facility] Comment on above: Order Comment: Speci men Type: CEREBROSPINAL FLUID Result Comment: Lumb ar CSF glucose values of healthy patients are approximately 60% of the plasma values and must always be compared with a concurrently measured plasma value for adequate clinical interpretation.References: 1. Glucose HK (GLUC3) [package insert V 12.0 [place]uvian]. [employer], [place], [place]. September 2015. 2. Michelle Moore, Michelle Manjarrez (2015). Chapter 7: Glucose and Lactate. F. Irina rose al.(eds.), Cerebrospinal Fluid in Clinical Neurology. [place]: [employer]. Performed By: #### 2 342-4, 2880-3 ####[facility]ORATORYCLIA [id number] [place], [place] [address] [place] [address] [place] HERPES SIMPLEX CSFon 022 HERPES SIMPLEX CSF HSV PCR SPEC SOURCE: Cerebrospinal Fluid HSV-1: Negative for Herpes Simplex Virus Type 1 by PCR HSV-2: Negative for Herpes Simplex Virus Type 2 by PCR Normal [facility] Comment on above: Performed By: #### H [facility] ####[facility] REFERENCE LABCLIA [id number] [id number] [address] [place] Lactate (Bld) [Moles/Vol]on 06-01-2021 Lactate [Moles/Vol] 0.5 mmol/L Normal 0.5-2.2 [facility] Comment on above: Order Comment: Speci men Type: BLOOD SPECIMEN Performed By: #### 3 2693-4 ####[facility]ORATORYCLIA [id number] [place] [address] [facility] [place] MENINGITIS ENCEPHALITIS BIOF IREon 06-01-2021 MENINGITIS ENCEPHALITIS BIOFIRE Negative Normal [facility] Comment on above: Order Comment: Speci men Type: CEREBROSPINAL FLUID Performed By: #### M GEBF ####[facility]PITALIA [id number] [address] Magnesium SerPl-mCncon 06-01 Magnesium [Mass/Vol] 2.2 mg/dL Normal 1.7-2.3 [facility] Comment on above: Order Comment: Speci men Type: BLOOD SPECIMEN Performed By: #### 2 4321-2, 99285-4, 3537-1 ####[facility]ATORYCLIA [id number] [place], [place] [address] [place] [address] [place] Microorganism Spec Culton Microorganism identified Cx Nom (Unsp spec) CULTURE, AFB: No Acid Fast Bacilli isolated after 42 days AFB STAIN: No acid fast bacilli seen by flurochrome stain Normal [facility] Comment on above: Performed By: #### 1 1475-1 ####[facility]ORATORYCLIA [id number] [address] [place] PROCALCITONIN (LAB)on 2021 Procalcitonin [Mass/Vol] 0.08 ng/mL Normal <0.09 [facility] Comment on above: Order Comment: Speci men Type: BLOOD SPECIMEN Result Comment: For a guided interpretation of test results, please visit the [facility] in Procalcitonin Calculator, [email or web address]. Performed By: #### P ROCAL ####[facility]ORATORYCLIA [id number] [address] [place] Phosphate SerPl-ncon 06-01 Phosphate [Mass/Vol] 3.5 mg/dL Normal 2.7-4.8 [facility] Comment on above: Order Comment: Speci men Type: BLOOD SPECIMEN Performed By: #### 2 4321-2, 95967-0, 2776-1 ####[facility]ATORYCLIA [id number] [address] [place] Prot CSF-mCncon 06-01-2021 Protein (CSF) [Mass/Vol] 52 mg/dL High 15-45 [facility] Comment on above: Order Comment: Speci men Type: CEREBROSPINAL FLUID Performed By: #### 2 342-4, 2880-3 ####[facility]ATORYCLIA [id number] [address] [place] Vancomycin random [Mass/Vol] [...] Performed By: #### 4 091-5 ####[facility]ORATORYCLIA [id number] [address] [place] XR CHEST 1V FRONTALon 2021 XR CHEST 1V FRONTAL Normal [facility] XR CHEST 1V FRONTAL Normal [facility] XR NECK SOFT TISSUE 2V AP/LA Ton 06-01-2021 XR NECK SOFT TISSUE 2V AP/LAT Normal [facility] XR SKULL 2V AP/LATon 022 XR SKULL 2V AP/LAT Normal [facility] ALLIED HEALTHon 05-31-2021 ALLIED HEALTH HNO ID: [id number] Author: Christina Lynne RT(R) Service: Radiology Author Type: Technologist Type: Allied Health Filed: 05/31/2021 5:48 PM Note Text: MRI tomorrow per RN. Normal [facility] ALLIED HEALTH Normal [facility] ALLIED HEALTH Normal [facility] HEALTH Normal [facility] ANES [...] Performed By: #### 6 00-7 ####[facility]ORATORYCLIA [id number] [address] OF [facility] Bacteria CSF Culton 05-31-19 22 Bacteria identified Cx Nom (CSF) CULTURE, CSF: No growth 14 days GRAM STAIN: No organisms seen Rare Polymorphonuclear leukocytes Rare Red Blood Cells Gram stain performed on cytospun specimen. Normal [facility] Comment on above: Performed By: #### 6 06-4 ####[facility]ATORYCLIA [id number] [place] [address] [place] Basic metabolic 2000 panelon 05-31-2021 Anion gap [Moles/Vol] 9 mmol/L Normal 9-18 [facility] Comment on above: Order Comment: Speci men Type: BLOOD SPECIMEN Performed By: #### 2 777-1, 92689-9, ####[facility] LABORATORYCLIA [id number] [address] STATES OF [facility] Calcium [Mass/Vol] 8.2 mg/dL Low 8.5-10.2 [facility] Comment on above: Order Comment: Speci men Type: BLOOD SPECIMEN Performed By: #### 2 777-1, , ####[facility]ATORYCLIA [id number] [address] [place] Chloride [Moles/Vol] 110 mmol/L High 97-105 [facility] Comment on above: Order Comment: Speci men Type: BLOOD SPECIMEN Performed By: #### 2 777-1, , ####[facility]ORYCLIA [id number] [address] STATES OF [facility] CO2 [Moles/Vol] 27 mmol/L Normal 22-30 [facility] Comment on above: Order Comment: Speci men Type: BLOOD SPECIMEN Performed By: #### 2 777-1, , ####[facility]ATORYCLIA [id number] [place] [address] [place] Creatinine [Mass/Vol] 0.85 mg/dL Normal 0.73-1.22 [facility] Comment on above: Order Comment: Speci men Type: BLOOD SPECIMEN Performed By: #### 2 777-1, 84578-6, ####[facility]ATORYCLIA [id number] [place] [address] [place] GFR/1.73 sq M.predicted [...] actual GFR. Performed By: #### 2 777-1, 70028-1, 82292-7 ####[facility]ORATORYCLIA [id number] [place] [address] [place] Glucose [Mass/Vol] 111 mg/dL High 74-99 [facility] Comment on above: Order Comment: Speci men Type: BLOOD SPECIMEN Result Comment: The [place] Diabetes Association (ADA) provides guidance for cutoff [...] Standards of Medical Care in Diabetes 2016, [place] [employer]. Diabetes Care. 2016.39(Suppl 1). Performed By: #### 2 777-1, 28045-6, 42171-8 ####[facility]ORATORYCLIA [id number] [place] [address] [place] Potassium [Moles/Vol] 3.7 mmol/L Normal 3.7-5.1 [facility] Comment on above: Order Comment: Speci men Type: BLOOD SPECIMEN Performed By: #### 2 777-1, 01632-6, ####[facility]ATORYCLIA [id number] [address] STATES [facility] Sodium [Moles/Vol] 146 mmol/L High 136-144 [facility] Comment on above: Order Comment: Speci men Type: BLOOD SPECIMEN Performed By: #### 2 777-1, 11177-3, ####[facility]ATORYCLIA [id number] [address] Urea nitrogen [Mass/Vol] 16 mg/dL Normal 9-24 [facility] Comment on above: Order Comment: Speci men Type: BLOOD SPECIMEN Performed By: #### 2 777-1, 78892-8, ####[facility]ORATORYCLIA [id number] [address] OF [facility] CASE MGT INIT ASSESon 2021 CASE MGT INIT ASSES Normal [facility] CBC W Auto Differential pane l (Bld)on 05-31-2021 Basophils (Bld) [#/Vol] 0.04 10*3/uL Normal <0.11 [facility] Comment on above: Order Comment: Speci men Type: BLOOD SPECIMEN Performed By: #### 5 7021-8 ####[facility]ATORYCLIA [id number] [address] [place] Basophils/100 WBC (Bld) 0.5 % Normal [facility] Comment on above: Order Comment: Speci men Type: BLOOD SPECIMEN Performed By: #### 5 7021-8 ####[facility]ORYCLIA [id number] [address] Differential cell count method Nom (Bld) Auto Normal [facility] Comment on above: Order Comment: Speci men Type: BLOOD SPECIMEN Performed By: #### 5 7021-8 ####[facility]ATORYCLIA [id number] [address] [place] Eosinophils (Bld) [#/Vol] 0.27 10*3/uL Normal <0.46 [facility] Comment on above: Order Comment: Speci men Type: BLOOD SPECIMEN Performed By: #### 5 7021-8 ####[facility] LABORATORYCLIA [id number] [address] Eosinophils/100 WBC (Bld) 3.3 % Normal [facility] Comment on above: Order Comment: Speci men Type: BLOOD SPECIMEN Performed By: #### 5 7021-8 ####[facility]ORYCLIA [id number] [address] Erythrocyte distribution width (RBC) [Ratio] 15.4 % High 11.5-15.0 [facility] Comment on above: Order Comment: Speci men Type: BLOOD SPECIMEN Performed By: #### 5 7021-8 ####[facility]ORYCLIA [id number] [address] Hematocrit (Bld) [Volume fraction] 37.9 % Low 39.0-51.0 [facility] Comment on above: Order Comment: Speci men Type: BLOOD SPECIMEN Performed By: #### 5 7021-8 ####[facility]ORYCLIA [id number] [address] Hemoglobin (Bld) [Mass/Vol] 11.5 g/dL Low 13.0-17.0 [facility] Comment on above: Order Comment: Speci men Type: BLOOD SPECIMEN Performed By: #### 5 7021-8 ####[facility]ORYCLIA [id number] [address] IMMATURE GRAN % 0.4 % Normal [facility] Comment on above: Order Comment: Speci men Type: BLOOD SPECIMEN Performed By: #### 5 7021-8 ####[facility]ORYCLIA [id number] [address] IMMATURE GRAN ABS 0.03 k/uL Normal <0.10 [facility] Comment on above: Order Comment: Speci men Type: BLOOD SPECIMEN Performed By: #### 5 7021-8 ####[facility]ORYCLIA [id number] [address] Lymphocytes (Bld) [#/Vol] 1.90 10*3/uL Normal 1.00-4.00 [facility] Comment on above: Order Comment: Speci men Type: BLOOD SPECIMEN Performed By: #### 5 7021-8 ####[facility]ATORYCLIA [id number] [address] Lymphocytes/100 WBC (Bld) 23.0 % Normal [facility] Comment on above: Order Comment: Speci men Type: BLOOD SPECIMEN Performed By: #### 5 7021-8 ####[facility]ORYCLIA [id number] [address] MCH (RBC) [Entitic mass] 28.0 pg Normal 26.0-34.0 [facility] Comment on above: Order Comment: Speci men Type: BLOOD SPECIMEN Performed By: #### 5 7021-8 ####[facility]ORYCLIA [id number] [address] MCHC (RBC) [Mass/Vol] 30.3 g/dL Low 30.5-36.0 [facility] Comment on above: Order Comment: Speci men Type: BLOOD SPECIMEN Performed By: #### 5 7021-8 ####[facility]ATORYCLIA [id number] [address] MCV (RBC) [Entitic vol] 92.4 fL Normal 80.0-100.0 [facility] Comment on above: Order Comment: Speci men Type: BLOOD SPECIMEN Performed By: #### 5 7021-8 ####[facility]ORYCLIA [id number] [address] Monocytes (Bld) [#/Vol] 0.60 10*3/uL Normal <0.87 [facility] Comment on above: Order Comment: Speci men Type: BLOOD SPECIMEN Performed By: #### 5 7021-8 ####[facility]ORYCLIA [id number] [address] Monocytes/100 WBC (Bld) 7.3 % Normal [facility] Comment on above: Order Comment: Speci men Type: BLOOD SPECIMEN Performed By: #### 5 7021-8 ####[facility]ORYCLIA [id number] [address] Neutrophils (Bld) [#/Vol] 5.41 10*3/uL Normal 1.45-7.50 [facility] Comment on above: Order Comment: Speci men Type: BLOOD SPECIMEN Performed By: #### 5 7021-8 ####[facility]ORYCLIA [id number] [address] Neutrophils/100 WBC (Bld) 65.5 % Normal [facility] Comment on above: Order Comment: Speci men Type: BLOOD SPECIMEN Performed By: #### 5 7021-8 ####[facility]ORYCLIA [id number] [address] Nucleated RBC (Bld) [#/Vol] 10*3/uL Normal <0.01 [facility] Comment on above: Order Comment: Speci men Type: BLOOD SPECIMEN Performed By: #### 5 7021-8 ####[facility]ORYCLIA [id number] [address] Nucleated RBC/100 WBC (Bld) [Ratio] 0.0 /100 WBC Normal 0.0 [facility] Comment on above: Order Comment: Speci men Type: BLOOD SPECIMEN Performed By: #### 5 7021-8 ####[facility]ORYCLIA [id number] [address] Platelet mean volume (Bld) [Entitic vol] 9.8 fL Normal 9.0-12.7 [facility] Comment on above: Order Comment: Speci men Type: BLOOD SPECIMEN Performed By: #### 5 7021-8 ####[facility]ORYCLIA [id number] [address] OF [facility] Platelets (Bld) [#/Vol] 251 10*3/uL Normal 150-400 [facility] Comment on above: Order Comment: Speci men Type: BLOOD SPECIMEN Performed By: #### 5 7021-8 ####[facility]ORATORYCLIA [id number] [address] STATES OF [facility] RBC (Bld) [#/Vol] 4.10 10*6/uL Low 4.20-6.00 [facility] Comment on above: Order Comment: Speci men Type: BLOOD SPECIMEN Performed By: #### 5 7021-8 ####[facility]ATORYCLIA [id number] [address] WBC (Bld) [#/Vol] 8.25 10*3/uL Normal 3.70-11.00 [facility] Comment on above: Order Comment: Speci men Type: BLOOD SPECIMEN Performed By: #### 5 7021-8 ####[facility]ATORYCLIA [id number] [address] CONSULTon 05-31-2021 CONSULT Normal [facility] [...] By: #### 2 143-6, 3016-3 ####[facility]ORATORYCLIA [id number] [address] Cryptoc Ag Spec Ql LAon 05-08 Cryptococcus sp Ag LA Ql (Unsp spec) Negative Normal [facility] Comment on above: Performed By: #### 4 3228-6 ####[facility]ORATORYCLIA [id number] [address] [place] HISTORY PHYSICALon 2 HISTORY PHYSICAL Normal [facility] Magnesium SerPl-mCncon 05-31 Magnesium [Mass/Vol] 2.2 mg/dL Normal 1.7-2.3 [facility] Comment on above: Order Comment: Speci men Type: BLOOD SPECIMEN Performed By: #### 2 777-1, 76334-6, ####[facility]ATORYCLIA [id number] [address] NURSING PROGon 05-31-2021 NURSING PROG Normal [facility] NUTRITIONon 05-31-2021 NUTRITION Normal [facility] OPERATIVE NOon 05-31-2021 OPERATIVE NO Normal [facility] Phosphate SerPl-mCncon 05-31 Phosphate [Mass/Vol] 3.3 mg/dL Normal 2.7-4.8 [facility] Comment on above: Order Comment: Speci men Type: BLOOD SPECIMEN Performed By: #### 2 777-1, 28194-8, ####[facility]ATORYCLIA [id number] [address] STAPH AUREUS PCRon 2 S. aureus and MRSA panel MEGAN+probe (Nose) Normal Negative [facility] Comment on above: Order Comment: Speci men Type: SWAB OF INTERNAL NOSE Result Comment: Nega tive for Staphylococcus aureus by PCR.Negative for MRSA by PCR Performed By: #### S APCR ####[facility]ATORYCLIA [id number] [address] [place] TSH SerPl-aCncon 05-31-2021 TSH Qn 0.829 m[IU]/L Normal 0.270-4.200 [facility] Comment on above: Order Comment: Speci men Type: BLOOD SPECIMEN Performed By: #### 2 143-6, 3016-3 ####[facility]ATORYCLIA [id number] [place] [address] [place] XR CHEST 1V FRONTALon 2021 XR CHEST 1V FRONTAL Normal [facility] XR CHEST 1V FRONTAL Normal [facility] Blood Cultureon 05-30-2021 Bacteria identified Cx Nom (Bld) Culture Result - No growth 5 days Normal [facility] Comment on above: Performed By: #### C AD #### [facility] [address] [place], [place] [id number] [place] [address] Bacteria identified Cx Nom (Bld) Sp. Request/Comment: - 8.2MLS Culture Result - No growth 5 days Normal [facility] Comment on above: Performed By: #### C AD #### [facility] [address] [place], [place] [address] [place] [address] C-Reactive Proteinon 022 C-Reactive Protein 1.7 mg/dL High <0.9 [facility] Comment on above: Performed By: #### C RP ####[facility] [address] [place], [place] [phone] CNDSon 05-30-2021 [facility] HNO ID: [id number] Author: Columba Carroll PA-C Service: Hospital Medicine Author Type: Physician Investigative Agent Type: Discharge Summary Filed: 05/30/2021 12:49 PM Note Text: ----- Attestation signed by Ayaka Menjivar MD at 06/01/2021 12:53 PM Attending Note I have personally reviewed the PA/MATTRESS FINISHER note. Agree with above assessment and plan. [...] Team: Attending Provider: Ayaka Menjivar MD Physician Investigative Agent: Columba Carroll PA-C Consulting: Lilo Mendoza MD [...] consulted. 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 Tele-neuro also suggested an MRI brain be obtained prior to LP to check [employer] shunt and decrease risk of herniation in neurosurgery capable facility. Transfer to [facility] requested. Sepsis lactate was 1.3. ABG showed pO2 67.8, placed patient on 2L NC.Follow B1, B12, and RPR pending. 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 LABS AND PROCEDURES PENDING [...] q 1 (more content not included)... Normal [facility] CONSULTon 05-30-2021 CONSULT HNO ID: [id number] Author: Juan Carlos Mckenzie MD Service: Infectious [...] vertebrae with counting from the craniocervical junction. Machine Packager: PSCShilpa Transcribe Date/Time: May 29 2021 8:59P Dictated by : CAROLS YOUNGER MD This examination was interpreted and the report reviewed and electronically signed by: CARLOS YOUNGER MD on May 29 2021 9:14PM EST ? CT CERVICAL SPINE WO (more content not included)... Normal [facility] CONSULT HNO ID: [id number] Author: Lilo Mendoza MD Service: Neurology General Author Type: Physician Type: Consults Filed: 05/30/2021 10:56 AM Note Text: [facility] TeleNeurology Consult Note Patient seen using [facility]. Recommendations are placed in the chart. Please review. For questions after hours, when teleneurologist is not available, for [place]: Please Page [phone] for the [facility] from 12pm to 8Am Admitting Provider/Consulted by:Hermes Roca MD Time of Note:05/30/2021 Patient Name:Andrew Sifuentes Admit Date:05/29/2021 Hospital Day:0 CC: altered mental status History of Present Illness: Andrew Sifuentes is a 71 year old unknown handed male with limited information about past medical history including venous insufficiency s/p EVLT, hydrocepalus s/p [employer] shunt in 1987 with multiple revisions and [...] Reflexes Right Lef (more content not included)... 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 Age: [age] year old Allergies: ALLERGIES Allergen [...] No results found for: [place]DEL[place]ULAM Shannon Gutierres, [facility] Normal [facility] Creatinineon 05-30-2021 Creatinine [Mass/Vol] 0.86 mg/dL Normal 0.73-1.22 [facility] Comment on above: Performed By: #### C RET1 ####[facility] [address] [place] [phone] eGFR- Amer. >60 [facility] Comment on above: Performed By: #### C RET1 ####[facility] [address] [place] [phone] eGFR-All Other Races >60 Normal [facility] Comment on above: Result [...] at [email or web address]. Performed By: #### C RET1 ####[facility] [address] [place] [phone] Crypto Antigen Deton 01-24-2 022 Crypto Antigen Det Sp. Request/Comment: - SST Test Result - Duplicate request Account Credited [facility] Comment on above: Performed By: #### C AD #### [facility] [address] [place] [address] [facility] [address] [place], [place] [address] Crypto Antigen Det Sp. Request/Comment: - SST Test Result - Cryptococcal antigen detection result: Negative By latex agglutination [facility] Comment on above: Performed By: #### C AD #### [facility] [address] [place] [address] [facility] [address] [place] [address] ED NOTEon 05-30-2021 ED NOTE HNO ID: [id number] Author: Aletha Lopez RN Service: ? Author Type: Registered Nurse Type: ED Notes Filed: 05/29/2021 11:16 PM Note Text: Patient changed for incontinent urine, labs redrawn and sent. Patient aware of plan to be admitted and agrees with plan [facility] HISTORY PHYSICALon HISTORY PHYSICAL Normal [facility] HISTORY PHYSICAL HNO ID: [id number] Author: Hermes Roca MD Service: Hospital Medicine Author Type: Physician Type: HANDP Filed: 05/30/2021 1:03 AM Note Text: DEPARTMENT OF HOSPITAL MEDICINE HISTORY AND PHYSICAL EXAM SERVICE DATE: 05/29/2021 SERVICE TIME: 11:18 PM Primary Care Physician: Mateus Burris MD NIGHT AND WEEKEND COVERAGE: Please page [phone] until 7:30am this morning. After 7:30am please check the treatment team banner and page the appropriate service. Subjective CHIEF COMPLAINT: Fall HPI: This is a 71 year old male with PMH of asthma, venous insufficiency s/p EVLT, obstructive hydrocepalus s/p SU[employer] shunt in 1987 with multiple revisions and [...] recent imaging (more content not included)... Normal [facility] Magnesium SerPl-mCncon 05-30 Magnesium [Mass/Vol] 2.5 mg/dL High 1.7-2.3 [facility] Comment on above: Order Comment: Speci men Type: BLOOD SPECIMEN Performed By: #### 1 9123-9, 2777-1 ####[facility] [id number] [place] [id number] [place] NURSING PROGon 05-30-2021 NURSING PROG HNO ID: [id number] Author: Precious Cervantes RN Service: ? Author Type: Registered Nurse Type: Nursing Progress Note Filed: 05/30/2021 11:26 AM Note Text: Nursing Progress Note Patient Name: Andrew Sifuentes Patient [facility]/[id number] Daily Note: 0700- Report received from night court magistrate RN, patient resting in bed at this time, call light within reach, bed low and locked. Asked the patient to state his name because night court magistrate RN was unable to complete his admission [...] This note was completed by: Precious Cervantes [facility] NURSING PROG HNO ID: [id number] Author: Lyubov Day RN Service: ? Author Type: Registered Nurse Type: Nursing Progress Note Filed: 05/30/2021 1:27 AM Note Text: Nursing Progress Note Patient Name: Andrew Sifuentes Patient Location: [facility]/[id number] 0100: Patient is unresponsive to questions. Patient [...] note was completed by: Lyubov Day Normal [facility] Phosphate SerPl-mCncon 05-30 Phosphate [Mass/Vol] 3.5 mg/dL Normal 2.7-4.8 [facility] Comment on above: Order Comment: Speci men Type: BLOOD SPECIMEN Performed By: #### 1 9123-9, 2777-1 ####[facility]ORY[facility]IA [id number] [place] [address] [place] Sepsis Lactateon 05-30-2021 Sepsis Lactate 1.5 mmol/L Normal 0.5-2.0 [facility] Comment on above: Performed By: #### S LACT ####[facility] [address] [place] [phone] Syphilis Ttl w/Reflxon 05-30 Syphilis Interp Cannot exclude recen t Treponemal infection if specimen collected within 7 to 10 days after appearance of suspect lesions or 2 to 3 weeks after an exposure. Clinical correlation is required. Normal [facility] Comment on above: Performed By: #### S Jennifer RUCKERB ####[facility] [place], [place] [phone] Syphilis Screen Rslt Non-Reactive Normal Non Reactive [facility] Comment on above: Performed By: #### S ALKA B1WB ####[facility] [place], [place] [phone] THERAPY NTon 05-30-2021 THERAPY NT HNO ID: [id number] Author: Bette Jimenez OTR/L Service: Occupational Therapy Author Type: Occupational Therapist Type: Therapy (PT/OT/Speech/Resp) Filed: 05/30/2021 10:29 AM Note Text: OCCUPATIONAL THERAPY MISSED VISIT SERVICE DATE: 05/30/2021 SERVICE TIME: 1017 to 1019 ROOM: [place] [address] Attempted Evaluation. Patient not seen due to Not following commands. Per nursing patient was seen by neuro and they are talking about having him transferred to [facility] secondary to shunt concerns. Will re attempt in the event patient continues to be admitted at [facility] and is able to participate. SIGNATURE: RADHA Andres/L PATIENT NAME: Andrew Sifuentes DATE: May 30, 2021 TIME: 10:21 AM [facility] THERAPY NT HNO ID: [id number] Author: Bette Velasquez PT Service: Physical Therapy Author Type: Physical Therapist Type: Therapy (PT/OT/Speech/Resp) Filed: 05/30/2021 8:42 AM Note Text: PHYSICAL THERAPY MISSED VISIT SERVICE DATE: 05/30/2021 SERVICE TIME: 0840 to 0840 ROOM: [place] [address] Attempted Evaluation. Patient not seen due to (pt difficult to awake per RN, very lethargic). Will re-attempt when schedule permits. SIGNATURE: Bette Velasquez PT PATIENT NAME: Andrew Sifuentes DATE: May 30, 2021 TIME: 8:41 AM Normal [facility] Toxicology Screen,Uron 05-30 Amphetamines, Urine Negative Normal Negative [facility] Comment on above: Result Comment: Cuto ff threshold at 1000 ng/mL. Performed By: #### C AD #### [facility] [address] [place] [address] [facility] [address] [place], [place] [address] Barbiturates, Urine Negative Normal Negative [facility] Comment on above: Result Comment: Cuto ff threshold at 200 ng/mL. Performed By: #### C AD #### [facility] [address] [place] [address] [facility] [address] [place] [address] Benzodiazepines, Ur Negative Normal Negative [facility] Comment on above: Result Comment: Cuto ff threshold at 200 ng/mL. Performed By: #### C AD #### [facility] [address] [place] [phone] [place] [address] Cannabinoids, Urine Negative Normal Negative [facility] Comment on above: Result Comment: Cuto ff threshold at 50 ng/mL. Performed By: #### C AD #### [facility] [address] [place], [place] [address] [place] [address] Cocaine, Urine Negative Normal Negative [facility] Comment on above: Result Comment: Cuto ff threshold at 300 ng/mL. Performed By: #### C AD #### [facility] [place] [phone] [place] [address] Opiates, Urine Negative Normal Negative [facility] Comment on above: Result Comment: Cuto ff threshold at 300 ng/mL. Performed By: #### C AD #### [facility] [place] [phone] [place] [address] Oxycodone, Urine Negative Normal Negative [facility] Comment on above: Result Comment: Cuto [...] on the same specimen through Client Services ([phone]) if contacted within 48 hours of initial testing. [1]Substance Abuse and Mental Health Services Administration (2012). Clinical Drug Testing in Primary Care Technical Assistance Publication Series 32. Department of Health and Human Services, [place], p.10. Performed By: #### C AD #### [facility] [address] [place], [place] [phone] [place] [address] Phencyclidine, Urine Negative Normal Negative [facility] Comment on above: Result Comment: Cuto ff threshold at 25 ng/mL. Performed By: #### C AD #### [facility] [address] [place] [phone] Troponin Ton 05-30-2021 Troponin T <0.010 Normal 0.000-0.029 [facility] Comment on above: Performed By: #### T NT ####[facility] [address] [place], [place] [phone] Urinalysison 05-30-2021 Bilirubin, Urine Negative Normal Negative [facility] Comment on above: Performed By: #### C AD #### [facility] [address] [place], [place] [phone] [place] [address] Clarity (U) Slightly Cloudy Critically abnormal Clear [facility] Comment on above: Performed By: #### C AD #### [facility] [address] [place], [place] [phone] [place] [address] Color (U) Yellow Normal Yellow [facility] Comment on above: Performed By: #### C AD #### [facility] [address] [place], [place] [phone] [place] [address] Glucose Ql (U) Negative Normal Negative [facility] Comment on above: Performed By: #### C AD #### [facility] [address] [place] [address] [facility] [address] [place], [place] [address] Hemoglobin/Blood,Ur Negative Normal Negative [facility] Comment on above: Performed By: #### C AD #### [facility] [address] [place] [address] [facility] [address] [place], [place] [address] Ketones Ql (U) Negative Normal Negative [facility] Comment on above: Performed By: #### C AD #### [facility] [address] [place] [address] [facility] [address] [place] [address] Leukest Negative Normal Negative [facility] Comment on above: Performed By: #### C AD #### [facility] [address] [place] [address] [facility] [address] [place], [place] [address] Nitrite Ql (U) Negative Normal Negative [facility] Comment on above: Performed By: #### C AD #### [facility] [address] [place] [address] [facility] [address] [place], [place] [address] pH (U) 8.5 [pH] High 5.0-8.0 [facility] Comment on above: Performed By: #### C AD #### [facility] [address] [place] [address] [facility] [address] [place], [place] [address] Protein, Urine Negative Normal Negative [facility] Comment on above: Performed By: #### C AD #### [facility] [address] [place] [address] [facility] [address] [place], [place] [address] Specific [place], Ur 1.015 Normal 1.005-1.030 [facility] Comment on above: Performed By: #### C AD #### [facility] [address] [place] [address] [place] [address] [place], [place] [address] Urobilinogen Qn (U) 0.2 {Marianne'U}/dL Normal 0.2-1.0 [facility] Comment on above: Performed By: #### C AD #### [facility] [address] [place] [address] [place] [address] Vitamin B1, Whole Blon 05-30 Vitamin B1 (TDP), WB 207.1 nmol/L Normal 84.0-213.0 [facility] Comment on above: Result Comment: This assay measures the concentration of thiamine diphosphate (TDP), the primary active form of vitamin B1. Approximately 90 percent of vitamin B1 present in whole blood is TDP. Thiamine and thiamine monophosphate, which comprise the remaining 10 percent, are not measured. This test was developed and its performance characteristics determined by [facility]'s Isrrael Perez [facility] Pathology and Laboratory Medicine [place] ( [facility]). It has not been cleared or approved by the FDA. [facility] is regulated under CLIA as qualified to perform high complexity testing. This test is used for clinical purposes. It should not be regarded as investigational or for research. Performed By: #### S YPHTX, B1WB ####[place] [address] [place], [place] [phone] Vitamin B12on 05-30-2021 Cobalamin (Vitamin B12) [Mass/Vol] 494 pg/mL Normal 232-1245 [facility] Comment on above: Performed By: #### C AD #### [facility] [place] [address] [phone] ALLIED HEALTHon 05-29-2021 [facility] HNO ID: [id number] Author: Danica Jose RT(R) Service: Radiology Author [...] RT Kitty(R) May 29, 2021 8:51 PM [facility] HNO ID: [id number] Author: Markie Fish Service: ? Author Type: Landscape Photographer Type: Allied Health Filed: 05/29/2021 8:39 PM [...] Fish May 29, 2021 8:38 PM Normal [facility] CBC and Differentialon 05-29 Abs Baso 0.05 k/uL Normal <0.11 [facility] Comment on above: Performed By: #### C MP, MG1, CBCDIF ####[facility] [address] [place], [place] [phone] Abs [place] 0.72 k/uL Normal <0.87 [facility] Comment on above: Performed By: #### C MP, MG1, CBCDIF ####[facility] [address] [place] [address] Abs Neut 7.86 k/uL High 1.45-7.50 [facility] Comment on above: Performed By: #### C MP, MG1, CBCDIF ####[place] [address] Absolute nRBC <0.01 Normal <0.01 [facility] Comment on above: Performed By: #### C MP, MG1, CBCDIF ####[facility] [address] [place] [address] Basophils/100 WBC (Bld) 0.5 % Normal [facility] Comment on above: Performed By: #### C MP, MG1, CBCDIF ####[place] [address] DTYPE Auto Diff Normal [facility] Comment on above: Performed By: #### C MP, MG1, CBCDIF ####[place] [address] Eosinophils (Bld) [#/Vol] 0.10 10*3/uL Normal <0.46 [facility] Comment on above: Performed By: #### C MP, MG1, CBCDIF ####[place] [address] Eosinophils/100 WBC (Bld) 0.9 % Normal [facility] Comment on above: Performed By: #### C MP, MG1, CBCDIF ####[place] [address] Erythrocyte distribution width (RBC) [Ratio] 15.5 % High 11.5-15.0 [facility] Comment on above: Performed By: #### C MP, MG1, CBCDIF ####[place] [address] Hematocrit (Bld) [Volume fraction] 41.6 % Normal 39.0-51.0 [facility] Comment on above: Performed By: #### C MP, MG1, CBCDIF ####[facility] [address] [place], [place] [phone] Hemoglobin (Bld) [Mass/Vol] 12.7 g/dL Low 13.0-17.0 [facility] Comment on above: Performed By: #### C MARÍA ELENA MG1, CBCDIF ####[facility] [address] [place] [address] Lymphocytes (Bld) [#/Vol] 2.04 10*3/uL Normal 1.00-4.00 [facility] Comment on above: Performed By: #### C MP MG1, CBCDIF ####[facility] [address] [place] [address] Lymphocytes/100 WBC (Bld) 18.9 % Normal [facility] Comment on above: Performed By: #### C MARÍA ELENA MG1, CBCDIF ####[place] [address] MCH 27.3 pG Normal 26.0-34.0 [facility] Comment on above: Performed By: #### C MARÍA ELENA MG1, CBCDIF ####[place] [address] MCHC (RBC) [Mass/Vol] 30.5 g/dL Normal 30.5-36.0 [facility] Comment on above: Performed By: #### C MP MG1, CBCDIF ####[place] [address] MCV (RBC) [Entitic vol] 89.5 fL Normal 80.0-100.0 [facility] Comment on above: Performed By: #### C MP MG1, CBCDIF ####[facility] [address] [place] [address] Monocytes/100 WBC (Bld) 6.7 % Normal [facility] Comment on above: Performed By: #### C MP, MG1, CBCDIF ####[place] [address] Neutrophils/100 WBC (Bld) 73.0 % Normal [facility] Comment on above: Performed By: #### C MP, MG1, CBCDIF ####[facility] [address] [place] [address] NRBCs 0.0 /100 WBC Normal 0 [facility] Comment on above: Performed By: #### C MP, MG1, CBCDIF ####[facility] [address] [place] [address] Platelet mean volume (Bld) [Entitic vol] 10.1 fL Normal 9.0-12.7 [facility] Comment on above: Performed By: #### C MP, MG1, CBCDIF ####[facility] [address] [place], [place] [address] Platelets (Bld) [#/Vol] 291 10*3/uL Normal 150-400 [facility] Comment on above: Performed By: #### C MP, MG1, CBCDIF ####[facility] [address] [place], [place] [address] RBC (Bld) [#/Vol] 4.65 10*6/uL Normal 4.20-6.00 [facility] Comment on above: Performed By: #### C MP, MG1, CBCDIF ####[facility] [address] [place], [place] [address] WBC (Bld) [#/Vol] 10.77 10*3/uL Normal 3.70-11.00 [facility] Comment on above: Performed By: #### C MP, MG1, CBCDIF ####[facility] [address] [place], [place] [address] CT BRAIN WO IVCONon 05-29-19 CT BRAIN WO IVCON * * *Final Report* * * DATE OF EXAM: May 29 2021 8:42PM [facility] 0504 - CT BRAIN WO IVCON / PROCEDURE REASON: Head trauma, headache * * * * Physician Interpretation * * * * EXAMINATION: CT CERVICAL SPINE WO IVCON, CT BRAIN WO IVCON CLINICAL HISTORY: C-spine trauma, NEXUS/CCR positive (accession [id number]), Head trauma, headache (accession [id number]) TECHNIQUE: Serial axial unenhanced images were obtained from the vertex to the foramen magnum. Spiral, high resolution axial unenhanced images were obtained from the skull base to the cervicothoracic junction with sagittal and coronal planar reconstructions. Dose-Length Product (DLP): 2132 mGy*cm. CT Dose Reduction Employed: Automated exposure control (AEC) COMPARISON: 08/13/[address] RESULT: BRAIN: Post-operative change: Right parietal approach [employer] shunt is intact. The intracranial fragments of [...] vertebrae with counting from the craniocervical junction. Machine Packager: OG Transcribe Date/Time: May 29 2021 8:59P Dictated by : CARLOS YOUNGER MD This examination was interpreted and the report reviewed and electronically signed by: CARLOS YOUNGER MD on May 29 2021 9:14PM EST [id number] [facility] CT CERVICAL SPINE WO IVCONon 05-29-2021 CT CERVICAL SPINE WO IVCON * * *Final Report* * * DATE OF EXAM: May 29 2021 8:42PM [facility] 0505 - CT CERVICAL SPINE WO IVCON / PROCEDURE REASON: C-spine trauma, NEXUS/CCR positive * * * * Physician Interpretation * * * * EXAMINATION: CT CERVICAL SPINE WO IVCON, CT BRAIN WO IVCON CLINICAL HISTORY: C-spine trauma, NEXUS/CCR positive (accession [id number]), Head trauma, headache (accession [id number]) TECHNIQUE: Serial axial unenhanced images were obtained from the vertex to the foramen magnum. Spiral, high resolution axial unenhanced images were obtained from the skull base to the cervicothoracic junction with sagittal and coronal planar reconstructions. Dose-Length Product (DLP): 2132 mGy*cm. CT Dose Reduction Employed: Automated exposure control (AEC) COMPARISON: 08/13/[address] RESULT: BRAIN: Post-operative change: Right parietal approach [employer] shunt is intact. The intracranial fragments of [...] vertebrae with counting from the craniocervical junction. Machine Packager: PSCB Transcribe Date/Time: May 29 2021 8:59P Dictated by : CARLOS YOUNGER MD This examination was interpreted and the report reviewed and electronically signed by: CARLOS YOUNGER MD on May 29 2021 9:14PM EST [id number] [facility] Cepheid Bill only (EXCFR)on 05-29-2021 Cepheid Bill only (EXCFR) Billed for services performed [facility] Comment on above: Performed By: #### C AD #### [facility] [address] [place] [address] [facility] [address] [place], [place] [address] Comp Metabolic Panelon 05-29 Albumin [Mass/Vol] 4.1 g/dL Normal 3.9-4.9 [facility] Comment on above: Performed By: #### C MP ####[facility] [address]cf[address] [place] [address] ALP [Catalytic activity/Vol] 86 U/L Normal 38-113 [facility] Comment on above: Performed By: #### C MP ####[facility] [address] [place] [address] ALT [Catalytic activity/Vol] 15 U/L Normal 10-54 [facility] Comment on above: Performed By: #### C MP ####[facility] [address] [place] [address] Anion gap [Moles/Vol] 9 mmol/L Normal 9-18 [facility] Comment on above: Performed By: #### C MP ####[facility] [address] [place] [address] AST [Catalytic activity/Vol] 22 U/L Normal 14-40 [facility] Comment on above: Performed By: #### C MP ####[facility] [address] [place] [address] Bilirubin [Mass/Vol] 0.2 mg/dL Normal 0.2-1.3 [facility] Comment on above: Performed By: #### C MP ####[facility] Dhrhochnrt34[address] [place] [address] Calcium [Mass/Vol] 9.1 mg/dL Normal 8.5-10.2 [facility] Comment on above: Performed By: #### C MP ####[facility] T[address] [place] [address] Chloride [Moles/Vol] 103 mmol/L Normal 97-105 [facility] Comment on above: Performed By: #### C MP ####[facility] [address]wv3737 [place] [address] CO2 [Moles/Vol] 29 mmol/L Normal 22-30 [facility] Comment on above: Performed By: #### C MP ####[facility] Blijqyntiq3923 [address] Creatinine [Mass/Vol] 0.89 mg/dL Normal 0.73-1.22 [facility] Comment on above: Performed By: #### C MP ####[facility] [address] [place] [address] eGFR- Amer. >60 Normal [facility] Comment on above: Performed By: #### C MP ####[facility] Tirvstbalh0120 [address] eGFR-All Other Races >60 Normal [facility] Comment on above: Result [...] at [email or web address]. Performed By: #### C MP ####[facility] Tzymgwydkb5218 [address] Glucose [Mass/Vol] 120 mg/dL High 74-99 [facility] Comment on above: Result Comment: The [place] Diabetes Association (ADA) provides guidance for cutoff [...] Standards of Medical Care in Diabetes 2016, [place] [employer]. Diabetes Care. 2016.39(Suppl 1). Performed By: #### C MP ####[facility] [address]wt[address] [place] [address] Potassium [Moles/Vol] 4.2 mmol/L Normal 3.7-5.1 [facility] Comment on above: Performed By: #### C MP ####[facility] [address] [place] [address] Protein [Mass/Vol] 7.1 g/dL Normal 6.3-8.0 [facility] Comment on above: Performed By: #### C MP ####[place] [address] Sodium [Moles/Vol] 141 mmol/L Normal 136-144 [facility] Comment on above: Performed By: #### C MP ####[facility] [address] [place] [address] Urea nitrogen [Mass/Vol] 11 mg/dL Normal 9-24 [facility] Comment on above: Performed By: #### C MP ####[place] [address] Albumin [Mass/Vol] 4.1 g/dL Normal 3.9-4.9 [facility] Comment on above: Performed By: #### C MP, MG1, CBCDIF ####[facility] [address] [place] [address] ALP [Catalytic activity/Vol] 86 U/L Normal 38-113 [facility] Comment on above: Performed By: #### C MP, MG1, CBCDIF ####[place] [address] ALT Unable to assay due to interference from hemolysis. Suggest reorder as clinically indicated. Normal 10-54 [facility] Comment on above: Result Comment: Call ed to LISA Rea at 2129 on 05.29.21 by Sabino Performed By: #### C MP, MG1, CBCDIF ####[facility] [address] [place] [address] Anion gap [Moles/Vol] 12 mmol/L Normal 9-18 [facility] Comment on above: Performed By: #### C MP, MG1, CBCDIF ####[facility] Thqjdmhysd5[address] [place] [address] AST Unable to assay due to interference from hemolysis. Suggest reorder as clinically indicated. Normal 14-40 [facility] Comment on above: Result Comment: Call ed to ED Álvaro at 2129 on 05.29.21 by Sabino Performed By: #### C MP, MG1, CBCDIF ####[facility] [address]zd[address]asr01[address] [place] [address] Bilirubin [Mass/Vol] 0.2 mg/dL Normal 0.2-1.3 [facility] Comment on above: Performed By: #### C MP, MG1, CBCDIF ####[facility] Knxpnvzito9173 [place] [address] Calcium [Mass/Vol] 9.0 mg/dL Normal 8.5-10.2 [facility] Comment on above: Performed By: #### C MP, MG1, CBCDIF ####[facility] Vycupesoxi[address] [place] [address] Chloride [Moles/Vol] 102 mmol/L Normal 97-105 [facility] Comment on above: Performed By: #### C MP, MG1, CBCDIF ####[facility] [address]qa[address] [place] [address] CO2 [Moles/Vol] 27 mmol/L Normal 22-30 [facility] Comment on above: Performed By: #### C MP, MG1, CBCDIF ####[facility] [address]nx[address] [place] [address] Creatinine [Mass/Vol] 0.75 mg/dL Normal 0.73-1.22 [facility] Comment on above: Performed By: #### C MP, MG1, CBCDIF ####[facility] Fwevuhvmbf2577 [address] eGFR- Amer. >60 Normal [facility] Comment on above: Performed By: #### C MP, MG1, CBCDIF ####[facility] [address] [place] [phone] eGFR-All Other Races >60 Normal [facility] Comment on above: Result [...] Performed By: #### C MP, MG1, CBCDIF ####[facility] [address]3386 [place] [phone] Glucose [Mass/Vol] 112 mg/dL High 74-99 [facility] Comment on above: Result Comment: The [place] Diabetes Association (ADA) provides guidance for cutoff [...] Standards of Medical Care in Diabetes 2016, [place] [employer]. Diabetes Care. 2016.39(Suppl 1). Performed By: #### C MP, MG1, CBCDIF ####[facility] [address] [place] [phone] Potassium Unable to assay due to interference from hemolysis. Suggest reorder as clinically indicated. Normal 3.7-5.1 [facility] Comment on above: Result Comment: Call ed to ED Álvaro at 2129 on 05.29.21 by Sabino Performed By: #### C MP, MG1, CBCDIF ####[facility] Kjtkgyqejt6019 [address]721[address] Protein [Mass/Vol] 7.3 g/dL Normal 6.3-8.0 [facility] Comment on above: Performed By: #### C MP, MG1, CBCDIF ####[facility] Brbvcjioyf1229 [address]721[address] Sodium [Moles/Vol] 141 mmol/L Normal 136-144 [facility] Comment on above: Performed By: #### C MP, MG1, CBCDIF ####[facility] Wxmxjnjewq3108 [address]721[address] Urea nitrogen [Mass/Vol] 11 mg/dL Normal 9-24 [facility] Comment on above: Performed By: #### C MP, MG1, CBCDIF ####[facility] Tjgitkznzk1500 [address]721[address] ED PROV NOTEon 05-29-2021 ED PROV NOTE HNO ID: [id number] Author: Shanell Slaughter MD Service: ? Author [...] No radiographic evidence of acute cardiopulmonary disease. Machine Packager: [facility] Transcribe Date/Time: May 29 2021 8:53P [...] vertebrae with counting from the craniocervical junction. Machine Packager: [facility] Transcribe Date/Time: May 29 2021 8:59P [...] vertebrae with counting from the craniocervical junction. Machine Packager: [facility] Transcribe Date/Time: May 29 (more content not included)... Normal [facility] ED PROV NOTE HNO ID: [id number] Author: Flavio Pandya DO Service: Emergency Medicine Author Type: Physician Type: ED Provider Notes Filed: 05/29/2021 7:10 PM Note Text: ED Provider Note Patient Name: Andrew Sifuentes SERVICE DATE: 05/29/21 History Patient presents with: Fall 71 yo male non-smoker, hx of HTN, 2 [employer] shunts, PE (not on anticoagulation now), asthma, [...] with assistance from bedside clinician. Provider Location: [facility] Patient Location: Outpatient Hospital Physical Exam [...] Pandya, DO Flavio Pandya, DO 05/29/211909 Normal [facility] EXCOVD, Flu A/B, RSV (On int erfaces 1102,1120)on 05-29-2021 Influenza A PCR Negative Normal [facility] Comment on above: Performed By: #### C AD #### [facility] [address] [place], [place] [address] [place] [address] Laboratories [address] [place] [address] Influenza B PCR Negative Normal [facility] Comment on above: Performed By: #### C AD #### [facility] [address] [place] [address] RSV PCR Negative Normal [facility] Comment on above: Result Comment: This test has been authorized by [facility] under an Emergency Use Authorization (EUA). Performed By: #### C AD #### [facility] [address] [place] [address] SARS-CoV-2 (COVID-19) RNA MEGAN+probe Ql (Unsp spec) UPPER RESPIRATORY TRACT SWAB Normal [facility] Comment on above: Performed By: #### C AD #### [facility] [address] [place] [address] SARS-CoV-2 (COVID-19) RNA MEGAN+probe Ql (Unsp spec) Negative for COVID19 (SARS CoV2) by RT-PCR or equivalent method. Normal Negative for COVID19 (SARS CoV2) by RT-PCR or equivalent method. [facility] Comment on above: Result Comment: This test has been authorized by [facility] under an Emergency Use Authorization (EUA). Performed By: #### C AD #### [facility] [address] [place] [address] Magnesiumon 05-29-2021 Magnesium [Mass/Vol] 2.2 mg/dL Normal 1.7-2.3 [facility] Comment on above: Performed By: #### C MP, MG1, CBCDIF ####[facility] [address] [place] [phone] NT Pro BNPon 05-29-2021 PRO B Natr Peptide 303 pg/mL High <125 [facility] Comment on above: Performed By: #### N TBNP ####[facility] [address] [place] [phone] Troponin Ton 05-29-2021 Troponin T <0.010 Normal 0.000-0.029 [facility] Comment on above: Performed By: #### T NT ####[facility] [address] [place] [phone] Troponin T Unable to assay due to interference from hemolysis. Suggest reorder as clinically indicated. Normal 0.000-0.029 [facility] Comment on above: Result Comment: Call ed to ED Álvaro at 2129 on 05.29.21 by Sabino Performed By: #### T NT ####[facility] Ewhqtugpqc6872 [address]721[address] XR CHEST 1V FRONTAL PORTon 0 [...] No radiographic evidence of acute cardiopulmonary disease. Machine Packager: OG Transcribe Date/Time: May 29 2021 8:53P Dictated by : ROLY BANGURA MD This examination was interpreted and the report reviewed and electronically signed by: ROLY BANGURA MD on May 29 2021 8:54PM EST [id number] Normal [facility] COMPREHENSIVE PANELon 2020 Albumin [Mass/Vol] 3.9 g/dL Normal 3.4 - 5.0 [facility] Comment on above: Order Comment: PATIE NT FASTING Performed By: #### C MP #### [facility] [address] [place] [address] ALP [Catalytic activity/Vol] 71 U/L Normal 33 - 136 [facility] Comment on above: Order Comment: PATIE NT FASTING Performed By: #### C MP #### [facility] [address] [place] [address] ALT [Catalytic activity/Vol] 19 U/L Normal 10 - 52 [facility] Comment on above: Order Comment: PATIE NT FASTING Result Comment: Nasima ents treated with Sulfasalazine may generate falsely decreased results for ALT. Performed By: #### C MP #### [facility] [address] [place] [address] Anion gap [Moles/Vol] 13 mmol/L Normal 10 - 20 [facility] Comment on above: Order Comment: PATIE NT FASTING Performed By: #### C MP #### [facility] [address] [place] [address] AST [Catalytic activity/Vol] 20 U/L Normal 9 - 39 [facility] Comment on above: Order Comment: PATIE NT FASTING Performed By: #### C MP #### [facility] [address] [place] [address] Bilirubin [Mass/Vol] 0.6 mg/dL Normal 0.0 - 1.2 [facility] Comment on above: Order Comment: PATIE NT FASTING Performed By: #### C MP #### [facility] [address] [place] [address] Calcium [Mass/Vol] 9.0 mg/dL Normal 8.6 - 10.6 [facility] Comment on above: Order Comment: PATIE NT FASTING Performed By: #### C MP #### [facility] [address] [place] [address] Chloride [Moles/Vol] 103 mmol/L Normal 98 - 107 [facility] Comment on above: Order Comment: PATIE NT FASTING Performed By: #### C MP #### [facility] [address] [place] [address] Creatinine [Mass/Vol] 0.94 mg/dL Normal 0.50 - 1.30 [facility] Comment on above: Order Comment: PATIE NT FASTING Performed By: #### C MP #### [facility] [address] [place] [address] GFR- AM. >60 Normal >60 [facility] Comment on above: Order Comment: PATIE NT FASTING Result Comment: CALC ULATIONS OF ESTIMATED GFR ARE PERFORMED USING THE MDRD STUDY EQUATION FOR THE IDMS-TRACEABLE CREATININE METHODS. CLIN CHEM 2007;53:766-72 Performed By: #### C MP #### [facility] [address] [place] [address] GFR-NON AM. >60 Normal >60 [facility] Comment on above: Order Comment: PATIE NT FASTING Performed By: #### C MP #### [facility] [address] [place] [address] Glucose [Mass/Vol] 85 mg/dL Normal 74 - 99 [facility] Comment on above: Order Comment: PATIE NT FASTING Performed By: #### C MP #### [facility] [address] [place] [address] HCO3 (Bld) [Moles/Vol] 30 mmol/L Normal 21 - 32 [facility] Comment on above: Order Comment: PATIE NT FASTING Performed By: #### C MP #### [facility] [address] [place] [address] Potassium [Moles/Vol] 4.1 mmol/L Normal 3.5 - 5.3 [facility] Comment on above: Order Comment: PATIE NT FASTING Performed By: #### C MP #### [facility] [address] [place] [address] Protein [Mass/Vol] 6.6 g/dL Normal 6.4 - 8.2 [facility] Comment on above: Order Comment: PATIE NT FASTING Performed By: #### C MP #### [facility] [address] [place] [address] Sodium [Moles/Vol] 142 mmol/L Normal 136 - 145 [facility] Comment on above: Order Comment: PATIE NT FASTING Performed By: #### C MP #### [facility] [address] [place] [address] Urea nitrogen [Mass/Vol] 14 mg/dL Normal 6 - 23 [facility] Comment on above: Order Comment: PATIE NT FASTING Performed By: #### C MP #### [facility] [address] [place] [address] LIPID PANEL (CORONARY RISK 2 )on 09-03-2020 Cholesterol [Mass/Vol] 210 mg/dL High 0 - 199 [facility] Comment on above: Order Comment: [...] Performed By: #### L IPID #### [facility] [address] [place] [address] Cholesterol in HDL [Mass/Vol] 50.1 mg/dL Normal [facility] Comment on above: Order Comment: PATIE NT FASTING Result Comment: . AGE VERY LOW LOW NORMAL HIGH 0-19 Y < 35 < 40 40-45 ---- 20-24 Y ---- < 40 >45 ---- >24 Y ---- < 40 40-60 >60 . Performed By: #### L IPID #### [facility] [address] [place] [address] Cholesterol in LDL [Mass/Vol] 130 mg/dL High 0 - 99 [facility] Comment on above: Order Comment: PATIE NT FASTING Result Comment: . NEAR BORD AGE DESIRABLE OPTIMAL HIGH HIGH VERY HIGH 0-19 Y 0 - 109 --- 110-129 >/= 130 ---- 20-24 Y 0 - 119 --- 120-159 >/= 160 ---- >24 Y 0 - 99 100-129 130-159 160-189 >/=190 . Performed By: #### L IPID #### [facility] [address] [place] [address] Cholesterol in VLDL [Mass/Vol] 30 mg/dL Normal 0 - 40 [facility] Comment on above: Order Comment: PATIE NT FASTING Performed By: #### L IPID #### [facility] [address] [place] [address] Cholesterol.total/Chol esterol in HDL [Mass ratio] 4.2 {ratio} Normal [facility] Comment on above: Order Comment: PATIE NT FASTING Result Comment: REF VALUES DESIRABLE < 3.4 HIGH RISK > 5.0 Performed By: #### L IPID #### [facility] [address] [place] [address] Triglyceride [Mass/Vol] 152 mg/dL High 0 - 149 [facility] Comment on above: Order Comment: [...] Performed By: #### L IPID #### [facility] [address] [place] [address] PROSTATE SPEC.AG,SCREENon PROSTATE SPEC.AG,SCREEN 0.37 ng/mL Normal 0.00 - 4.00 [facility] Comment on above: Order Comment: PATIE NT FASTING Result Comment: The FDA requires that the method used for PSA assay be reported to the physician. Values obtained with different assay methods must not be used interchangeably. This test was performed at [facility] using the Siemens Small Demons PSA method, which is a sandwich immunoassay using chemiluminescence for quantitation. The assay is approved for measurement of prostate-specific antigen (PSA) in serum and may be used in conjunction with a digital rectal examination in men 50 years and older as an aid in detection of prostate cancer. 7-Xelzx-gvmxyixrn inhibitors (e.g. Proscar, Finasteride, Avodart, Dutasteride and Elizabeth) for the treatment of BPH have been shown to lower PSA levels by an average of 50% after 6 months of treatment. Performed By: #### [facility] #### [facility] [address] [place] [address] TSH WITH REFLEX TO FREE T4 I F ABNORMALon 09-03-2020 TSH Qn 0.97 m[IU]/L Normal 0.44 - 3.98 [facility] Comment on above: Order Comment: PATIE NT FASTING Result Comment: TSH testing is performed using different testing methodology at [facility] than at other [facility]. Direct result comparisons should only be made within the same method. Performed By: #### T HYDS #### [facility] [address] [place] [address] CBC AND DIFFERENTIALon 09-02 % AUTOMATED IMMATURE GRAN 0.3 % Normal 0.0 - 0.9 [facility] Comment on above: Order Comment: PATIE NT FASTING Result Comment: [place] ture Granulocyte Count (IG) includes promyelocytes, myelocytes and metamyelocytes but does not include bands. Percent differential counts (%) should be interpreted in the context of the absolute cell counts (cells/L). Performed By: #### C BCDF #### [facility] [address] [place] [address] Basophils (Bld) [#/Vol] 0.07 10*3/uL Normal 0.00 - 0.10 [facility] Comment on above: Order Comment: PATIE NT FASTING Result Comment: Auto mated WBC differential has been confirmed by manual smear. Performed By: #### C BCDF #### [facility] [address] [place] [address] Basophils/100 WBC (Bld) 0.9 % Normal 0.0 - 2.0 [facility] Comment on above: Order Comment: PATIE NT FASTING Performed By: #### C BCDF #### [facility] [address] [place] [address] Eosinophils (Bld) [#/Vol] 0.21 10*3/uL Normal 0.00 - 0.70 [facility] Comment on above: Order Comment: PATIE NT FASTING Performed By: #### C BCDF #### [facility] [address] [place] [address] Eosinophils/100 WBC (Bld) 2.8 % Normal 0.0 - 6.0 [facility] Comment on above: Order Comment: PATIE NT FASTING Performed By: #### C BCDF #### [facility] [address] [place] [address] Lymphocytes (Bld) [#/Vol] 2.28 10*3/uL Normal 1.20 - 4.80 [facility] Comment on above: Order Comment: PATIE NT FASTING Performed By: #### C BCDF #### [facility] [address] [place] [address] Lymphocytes/100 WBC (Bld) 30.9 % Normal 13.0 - 44.0 [facility] Comment on above: Order Comment: PATIE NT FASTING Performed By: #### C BCDF #### [facility] [address] [place] [address] Monocytes (Bld) [#/Vol] 0.50 10*3/uL Normal 0.10 - 1.00 [facility] Comment on above: Order Comment: PATIE NT FASTING Performed By: #### C BCDF #### [facility] [address] [place] [address] Monocytes/100 WBC (Bld) 6.8 % Normal 2.0 - 10.0 [facility] Comment on above: Order Comment: PATIE NT FASTING Performed By: #### C BCDF #### [facility] [address] [place] [address] Neutrophils (Bld) [#/Vol] 4.29 10*3/uL Normal 1.20 - 7.70 [facility] Comment on above: Order Comment: PATIE NT FASTING Performed By: #### C BCDF #### [facility] [address] [place] [address] Neutrophils/100 WBC (Bld) 58.3 % Normal 40.0 - 80.0 [facility] Comment on above: Order Comment: PATIE NT FASTING Performed By: #### C BCDF #### [facility] [address] [place] [address] Erythrocyte distribution width (RBC) [Ratio] 14.6 % High 11.5 - 14.5 [facility] Comment on above: Order Comment: PATIE NT FASTING Performed By: #### C BCDF #### [facility] [address] [place] [address] Hematocrit (Bld) [Volume fraction] 43.1 % Normal 41.0 - 52.0 [facility] Comment on above: Order Comment: PATIE NT FASTING Performed By: #### C BCDF #### [facility] [address] [place] [address] Hemoglobin (Bld) [Mass/Vol] 13.3 g/dL Low 13.5 - 17.5 [facility] Comment on above: Order Comment: PATIE NT FASTING Performed By: #### C BCDF #### [facility] [address] [place] [address] MCHC (RBC) [Mass/Vol] 30.9 g/dL Low 32.0 - 36.0 [facility] Comment on above: Order Comment: PATIE NT FASTING Performed By: #### C BCDF #### [facility] [address] [place] [address] MCV (RBC) [Entitic vol] 92 fL Normal 80 - 100 [facility] Comment on above: Order Comment: PATIE NT FASTING Performed By: #### C BCDF #### [facility] [address] [place] [address] NUCLEATED RBC 0.0 /100 WBC Normal 0.0-0.0 [facility] Comment on above: Order Comment: PATIE NT FASTING Performed By: #### C BCDF #### [facility] [address] [place] [address] Platelets (Bld) [#/Vol] 267 10*3/uL Normal 150 - 450 [facility] Comment on above: Order Comment: PATIE NT FASTING Performed By: #### C BCDF #### [facility] [address] [place] [address] RBC 4.69 x10E12/L Normal 4.50 - 5.90 [facility] Comment on above: Order Comment: PATIE NT FASTING Performed By: #### C BCDF #### [facility] [address] [place] [address] WBC (Bld) [#/Vol] 7.4 10*3/uL Normal 4.4 - 11.3 [facility] Comment on above: Order Comment: PATIE NT FASTING Performed By: #### C BCDF #### [facility] [address] [place] [address] RED CELL MORPHOLOGYon 2020 CHANELL CELLS Few Normal [facility] Comment on above: Order Comment: PATIE NT FASTING Performed By: #### M ORP2 #### [facility] [address] [place] [address] OVALOCYTES Few Normal [facility] Comment on above: Order Comment: PATIE NT FASTING Performed By: #### M ORP2 #### [facility] [address] [place] [address] POLYCHROMASIA Mild Normal [facility] Comment on above: Order Comment: PATIE NT FASTING Performed By: #### M ORP2 #### [facility] [address] [place] [address] RBC FRAGMENTS Few Normal [facility] Comment on above: Order Comment: PATIE NT FASTING Performed By: #### M ORP2 #### [facility] [address] [place] [address] RBC morphology finding Nom (Bld) See Below Normal [facility] Comment on above: Order Comment: PATIE NT FASTING Performed By: #### M ORP2 #### [facility] [address] [place] [address] No Panel Informationon 01-19 76 1 MP-Cardiolo [...] [place] Work Phone: [email or web address] ?RetrieveTestByDateTime?P pyogqlBP=[id number]&Date=1 09-13-2019&Time=15%3a11%3a 03%3a00&TestType=ECG&Site =1&OutputType=PDF&Ext=PDF [facility]iolo gy-[facility] [place] Work Phone: Otheron 11-13-2019 [facility] Complete Blood Count + Diffe rentialon 11-06-2019 Basophils (Bld) [#/Vol] 0.06 {x10E9/L} See Below [facility] Work Phone: Comment on above: Reference Range: 0.0 0 - 0.10 Basophils/100 WBC (Bld) 0.8 % 0.0 - 2.0 [facility] Work Phone: Eosinophils (Bld) [#/Vol] 0.18 {x10E9/L} See Below [facility] [[email or web address] Work Phone: Comment on above: Reference Range: 0.0 0 - 0.70 Eosinophils/100 WBC (Bld) 2.5 % 0.0 - 6.0 [facility] [[email or web address] Work Phone: Erythrocyte distribution width (RBC) [Ratio] 13.7 % See Below [facility] Work Phone: Comment on above: Reference Range: 11. 5 - 14.5 Hematocrit (Bld) [Volume fraction] 45.5 % See Below [facility] Work Phone: Comment on above: Reference Range: 41. 0 - 52.0 Hemoglobin (Bld) [Mass/Vol] 14.0 g/dL See Below [facility] [[email or web address] Work Phone: Comment on above: Reference Range: 13. 5 - 17.5 Lymphocytes (Bld) [#/Vol] 2.15 {x10E9/L} See Below [facility] [[email or web address] Work Phone: Comment on above: Reference Range: 1.2 0 - 4.80 Lymphocytes/100 WBC (Bld) 29.9 % See Below [facility] [[email or web address] Work Phone: Comment on above: Reference Range: 13. 0 - 44.0 MCHC (RBC) [Mass/Vol] 30.8 g/dL below low threshold See Below [facility] [[email or web address] Work Phone: Comment on above: Reference Range: 32. 0 - 36.0 MCV (RBC) [Entitic vol] 94 fL 80 - 100 [facility] [[email or web address] Work Phone: Monocytes (Bld) [#/Vol] 0.49 {x10E9/L} See Below [facility] [[email or web address] Work Phone: Comment on above: Reference Range: 0.1 0 - 1.00 Monocytes/100 WBC (Bld) 6.8 % 2.0 - 10.0 -[facility] Work Phone: Neutrophils (Bld) [#/Vol] 4.30 {x10E9/L} See Below [facility] Work Phone: Comment on above: Reference Range: 1.2 0 - 7.70 Neutrophils/100 WBC (Bld) 59.9 % See Below [facility] Work Phone: Comment on above: Reference Range: 40. 0 - 80.0 Platelets (Bld) [#/Vol] 270 {x10E9/L} 150 - 450 [facility] Work Phone: RBC (Bld) [#/Vol] 4.85 {x10E12/L} See Below [facility] Work Phone: Comment on above: Reference Range: 4.5 0 - 5.90 WBC (Bld) [#/Vol] 0.0 {/100_WBC} 0.0-0.0 [facility] Work Phone: WBC (Bld) [#/Vol] 7.2 {x10E9/L} 4.4 - 11.3 [facility] Work Phone: Complete Blood Count + Differential 0.1 % 0.0 - 0.9 [facility] Work Phone: Comment on above: Immature Granulocyte Count (IG) includes promyelocytes, myelocytes and metamyelocytes but does not include bands. Percent differential counts (%) should be interpreted in the context of the absolute cell counts (cells/L). Lipid Panelon 11-06-2019 Cholesterol [Mass/Vol] 181 mg/dL 0 - 199 [facility] Work Phone: Comment [...] Cholesterol in HDL [Mass/Vol] 52.1 mg/dL [facility] Work Phone: Comment on above: . AGE VERY LOW LOW N ORMAL HIGH 0-19 Y < 35 < 40 40-45 ---- 20-24 Y ---- < 40 >45 ---- >24 Y ---- < 40 40-60 >60. Cholesterol in LDL [Mass/Vol] 97 mg/dL 0 - 99 [facility] Work Phone: Comment on above: . NEAR BORD AGE IZABELLA RABLE OPTIMAL HIGH HIGH VERY HIGH 0-19 Y 0 - 109 --- 110-129 >/= 130 ---- 20-24 Y 0 - 119 --- 120-159 >/= 160 ---- >24 Y 0 - 99 100-129 130-159 160-189 >/=190. Cholesterol.total/Chol esterol in HDL [Mass ratio] 3.5 {ratio} [facility] Work Phone: Comment on above: REF VALUESDESIRABLE < 3.4HIGH RISK > 5.0 Triglyceride [Mass/Vol] 158 mg/dL above high threshold 0 - 149 [facility] Work Phone: Comment on above: [...] [Catalytic activity/Vol] 70 U/L 33 - 136 [facility] Work Phone: Anion gap [Moles/Vol] 13 mmol/L 10 - 20 [facility] Work Phone: Bilirubin [Mass/Vol] 0.6 mg/dL 0.0 - 1.2 [facility] Physician [facility] Work Phone: Calcium [Mass/Vol] 9.4 mg/dL 8.6 - 10.6 [facility] Work Phone: Chloride [Moles/Vol] 99 mmol/L 98 - 107 [facility] Physician [facility] Work Phone: CO2 [Moles/Vol] 30 mmol/L 21 - 32 [facility] Physician [facility] Work Phone: Creatinine [Mass/Vol] 0.87 mg/dL See Below [facility] Work Phone: Comment on above: Reference Range: 0.5 0 - 1.30 Glucose [Mass/Vol] 89 mg/dL 74 - 99 [facility] [[email or web address] Work Phone: Potassium [Moles/Vol] 4.3 mmol/L 3.5 - 5.3 [facility] Work Phone: Protein [Mass/Vol] 7.3 g/dL 6.4 - 8.2 [facility] [[email or web address] Work Phone: Sodium [Moles/Vol] 138 mmol/L 136 - 145 [facility] [[email or web address] Work Phone: Urea nitrogen [Mass/Vol] 14 mg/dL 6 - 23 [facility] Work Phone: Otheron 11-06-2019 Albumin BCP dye [Mass/Vol] 4.4 g/dL 3.4 - 5.0 [facility] Work Phone: ALT With P-5'-P [Catalytic activity/Vol] 11 U/L 10 - 52 [facility] Work Phone: Comment on above: Patients treated wit h Sulfasalazine may generate falsely decreased results for ALT. AST With P-5'-P [Catalytic activity/Vol] 17 U/L 9 - 39 [facility] Work Phone: >60 >60 [facility] Work Phone: Comment on above: CALCULATIONS OF LUZMARIA MATED GFR ARE PERFORMED USING THE MDRD STUDY EQUATION FOR THE IDMS-TRACEABLE CREATININE METHODS. CLIN CHEM 2007;53:766-72 Culture, urine Bacteria identified Cx Nom (U) Mixed Gram Pos & Gram Neg Org [facility] Work Phone: Bacteria identified Cx Nom (U) Klebsiella pneumoniae sp pneum [facility] Work Phone: Vital Signs Date Time Vital Sign Value Performing Clinician Facility 09-13-2023 11:48-0400 Body height 175.3 cm Rebecca Buck MD Work Phone: [facility] 09-13-2023 11:48-0400 Body mass index (BMI) [Ratio] 25.84 kg/m2 Rebecca Buck MD Work Phone: [facility] 09-13-2023 11:48-0400 Body weight 79.38 kg Rebecca Buck MD Work Phone: [facility] 08-13-2023 09:56-0400 Body height 175.3 cm Rebecca Buck MD Work Phone: [facility] 08-13-2023 09:56-0400 Body mass index (BMI) [Ratio] 25.84 kg/m2 Rebecca Buck MD Work Phone: [facility] 08-13-2023 09:56-0400 Body weight 79.38 kg Rebecca Buck MD Work Phone: [facility] 03-02-2022 18:49-0400 Body temperature 98.01 [degF] Lanette Munguia DO Work Phone: [facility] 03-02-2022 18:49-0400 Diastolic blood pressure 72 mm[Hg] Lanette Munguia DO Work Phone: [facility] 03-02-2022 18:49-0400 Heart rate 94 /min Lanette Munguia DO Work Phone: [facility] 03-02-2022 18:49-0400 Respiratory rate 18 /min Lanette Munguia DO Work Phone: [facility] 03-02-2022 18:49-0400 SaO2% (BldA) [Mass fraction] 98 % Lanette Munguia DO Work Phone: [facility] 03-02-2022 18:49-0400 Systolic blood pressure 104 mm[Hg] Lan[facility] DO [facility] 03-02-2022 11:55-0400 Body height 175.3 cm Lanette Munguia DO Work Phone: [facility] 03-02-2022 11:55-0400 Body mass index (BMI) [Ratio] 25.84 kg/m2 Lanette Munguia DO Work Phone: [facility] 03-02-2022 11:55-0400 Body weight 79.38 kg Lanette Munguia DO Work Phone: [facility] 12-22-2021 02:08-0400 Diastolic blood pressure 67 mm[Hg] Sharon Olivia MD Work Phone: [facility] 12-22-2021 02:08-0400 Heart rate 77 /min Sharon Olivia MD Work Phone: [facility] 12-22-2021 02:08-0400 Respiratory rate 16 /min Sharon Olivia MD Work Phone: [facility] 12-22-2021 02:08-0400 SaO2% (BldA) [Mass fraction] 96 % Sharon Olivia MD Work Phone: [facility] 12-22-2021 02:08-0400 Systolic blood pressure 108 mm[Hg] Sharon Olivia MD Work Phone: [facility] 12-21-2021 23:52-0400 Body height 175.3 cm Sharon Olivia MD Work Phone: [facility] 12-21-2021 23:52-0400 Body mass index (BMI) [Ratio] 25.84 kg/m2 Sharon Olivia MD Work Phone: [facility] 12-21-2021 23:52-0400 Body temperature 97.9 [degF] Sharon Olivia MD Work Phone: [facility] 12-21-2021 23:52-0400 Body weight 79.38 kg Sharon Olivia MD Work Phone: [facility] 11-01-2021 08:41-0400 Diastolic blood pressure 77 mm[Hg] Dante Kim MD Work Phone: [facility] 11-01-2021 08:41-0400 Heart rate 75 /min Dante Kim MD Work Phone: [facility] 11-01-2021 08:41-0400 Respiratory rate 16 /min Dante Kim MD Work Phone: [facility] 11-01-2021 08:41-0400 SaO2% (BldA) [Mass fraction] 97 % Dante Kim MD Work Phone: [facility] 11-01-2021 08:41-0400 Systolic blood pressure 112 mm[Hg] Dante Kim MD Work Phone: [facility] 10-31-2021 19:13-0400 Body height 177.8 cm Dante Kim MD Work Phone: [facility] 10-31-2021 19:13-0400 Body mass index (BMI) [Ratio] 27.26 kg/m2 Dante Kim MD Work Phone: [facility] 10-31-2021 19:13-0400 Body temperature 98.49 [degF] Dante Kim MD Work Phone: [facility] 10-31-2021 19:13-0400 Body weight 86.18 kg Dante Kim MD Work Phone: [facility] 10-29-2021 07:38-0400 Body temperature 97.81 [degF] Lisa Miguel Angel DO Work Phone: [facility] 10-29-2021 07:38-0400 Diastolic blood pressure 79 mm[Hg] Lisa Miguel Angel DO Work Phone: [facility] 10-29-2021 07:38-0400 Heart rate 80 /min Lisa Miguel Angel DO Work Phone: [facility] 10-29-2021 07:38-0400 Respiratory rate 18 /min Lisa Miguel Angel DO Work Phone: [facility] 10-29-2021 07:38-0400 SaO2% (BldA) [Mass fraction] 96 % Lisa Miguel Angel DO Work Phone: [facility] 10-29-2021 07:38-0400 Systolic blood pressure 123 mm[Hg] Lisa Miguel Angel DO Work Phone: [facility] 10-25-2021 13:55-0400 Body height 170.2 cm Lisa Miguel Angel DO Work Phone: [facility] 10-21-2021 00:57-0400 Body mass index (BMI) [Ratio] 37.58 kg/m2 Lisa Miguel Angel DO Work Phone: [facility] 10-21-2021 00:57-0400 Body weight 108.86 kg Lisa Miguel Angel DO Work Phone: [facility] 07-13-2020 13:21-0500 BMI (Body Mass Index) 40.47 kg/m2 Monika Staley [facility] Work Phone: 07-13-2020 13:21-0500 Body Temperature 98 [degF] Monika Staley [facility]ician [facility] Work Phone: 07-13-2020 13:21-0500 Body weight 124.31 kg Monika Staley [facility] Physician [facility] Work Phone: 07-13-2020 13:21-0500 BP Diastolic [...] 04-13-2020 15:33-0500 0 1 Wing Ritter [facility] Work Phone: Comment on above: Pain Scale 01-20-2020 16:39-0400 Body height 175.26 cm Monika Staley MD [facility] [address] [place] Work Phone: 01-20-2020 16:39-0400 Body mass index (BMI) [Ratio] 39.28 kg/m2 Monika Staley MD IP-Uxmdaihtev-Jbo [facility] [address] [place] Work Phone: 01-20-2020 16:39-0400 Body surface area Derived from formula 2.33 m2 Monika Staley MD TV-Tnstlsyvdx-Nkq russ [address] [place] Work Phone: 01-20-2020 16:39-0400 Body weight 120.66 kg Monika Staley MD [facility] [place] Work Phone: 01-20-2020 16:39-0400 Diastolic blood pressure 84 mm[Hg] Monika Staley MD DQ-Tukqlqedjn-Mhm [facility] [address] [place] Work Phone: Comment on above: Location: RLE; Position: Sitting 01-20-2020 16:39-0400 Heart rate 80 /min Monika Staley MD [facility] [place] Work Phone: 01-20-2020 16:39-0400 SaO2% (BldA) [Mass fraction] 100 % Monika Staley MD NY-Ptttctrlup-Isu [facility] [address] [place] Work Phone: Comment on above: Source: 01-20-2020 16:39-0400 Systolic blood pressure 144 mm[Hg] Monika Staley MD SV-Tybadhzqcq-Vcn [facility] [address] [place] Work Phone: Comment on above: Location: RLE; Position: Sitting 11-06-2019 15:29-0400 BMI (Body Mass Index) 38.31 kg/m2 [facility] Work Phone: 11-06-2019 15:29-0400 Body Temperature [...] Start: 03-16-2025 ambulatory Carlos Lópezsaros OLS Faci lity:[facility] Start: 03-13-2025 ambulatory Carlos Katsaros OLS Faci lity:[facility] Start: 03-12-2025 ambulatory Mahaveer Mukka flash OLS Facility:[facility] Start: 03-11-2025 ambulatory Carlos Katsaros OLS Faci lity:[facility] Start: 03-09-2025 ambulatory Mahaveer Mukka flash OLS Facility:[facility] Start: 03-05-2025 ambulatory Mahaveer Mukka flash OLS Facility:[facility] Start: 03-02-2025 ambulatory Peter Katsaros OLS Faci lity:[facility] Start: 02-26-2025 ambulatory Mahaveer Mukka flash OLS Facility:[facility] Start: 02-23-2025 ambulatory Mahaveer Mukka flash OLS Facility:[facility] Start: 02-19-2025 ambulatory Mahaveer Mukka flash OLS Facility:[facility] Start: 02-16-2025 End: 02-16-2025 ambulatory Karon Delacruzlla OLS Facility:[facility] Start: 02-12-2025 [facility] Start: 02-12-2025 End: 02-12-2025 ambulatory Karon Delacruzlla OLS Facility:[facility] Start: 02-09-2025 Registered Referred Carlos Cavazos - [facility] Start: 02-09-2025 ambulatory Carlos Cavazos OLS Faci lity:[facility] Start: 02-05-2025 [facility] Start: 02-05-2025 End: 02-05-2025 ambulatory Karon Delacruzlla OLS Facility:[facility] Start: 02-02-2025 [facility] Start: 02-02-2025 End: 02-02-2025 ambulatory Karon Delacurzlla OLS Facility:[facility] Start: 01-29-2025 [facility] Start: 01-29-2025 End: 01-29-2025 ambulatory Karon Delacruzlla OLS Facility:[facility] Start: 01-26-2025 [facility] Start: 01-26-2025 End: 01-26-2025 ambulatory Karon Delacruzlla OLS Facility:[facility] Start: 01-22-2025 [facility] Start: 01-22-2025 End: 01-22-2025 [facility] Start: 01-19-2025 Registered Referred Carlos Cavazos - [facility] Start: 01-19-2025 End: 01-19-2025 ambulatory Carlos Cavazos OLS Facility:[facility] Start: 01-15-2025 [facility] [place] Start: 01-15-2025 End: 01-15-2025 ambulatory Karon Farmera OLS Facility:[facility] Start: 01-12-2025 Registered Referred Karon casillas MD -[facility] Start: 01-12-2025 End: 01-12-2025 ambulatory Karon Farmera OLS Facility:[facility] Start: 01-08-2025 Registered Referred Karon casillas MD -[facility] Start: 01-08-2025 End: 01-08-2025 ambulatory Karon Farmera OLS Facility:[facility] Start: 01-06-2025 Registered Referred Karon casillas MD -[facility] Start: 01-06-2025 End: 01-06-2025 ambulatory Karon Delacruzmarlenea OLS Facility:[facility] Start: 01-01-2025 End: 01-01-[address] Monika Staley MD Work Phone: -[facility] [place] Start: 01-01-2025 End: 01-01-2025 Departed Referred Karon Corrales MD -[facility] [place] Start: 01-01-2025 Registered Referred Karon casillas MD -[facility] Start: 01-01-2025 End: 01-01-2025 ambulatory Carlavilmanoe Delacruzmarlenevanessa OLS Facility:[facility] Start: 12-29-2024 Registered Referred Carlos Cavazos - [facility] Start: 12-29-2024 End: 12-29-2024 ambulatory Carlos Maribelkameron OLS Facility:[facility] Start: 12-26-2024 End: 12-26-[address] Monika Staley MD Work Phone: -[facility] [place] Start: 12-26-2024 End: 12-26-2024 Departed Referred Karon Corrales MD -[facility] [place] Start: 12-26-2024 Registered Referred Karon casillas MD -[facility] Start: 12-26-2024 End: 12-26-2024 ambulatory Karon Delacruzlla OLS Facility:[facility] Start: 12-25-2024 [facility] Start: 12-24-2024 End: 12-25-2024 ambulatory Mahavenoe Hernandezkkminglla OLS Facility:[facility] Start: 12-24-2024 Registered Referred Carlos Cavazos - [facility] Start: 12-22-2024 ambulatory Karon Hernandezkka flash OLS Facility:[facility] Start: 12-22-2024 Registered Referred Karon casillas MD -[facility] Start: 12-18-2024 [facility] Start: 12-18-2024 End: 12-18-2024 [facility]ulatory [facility] Start: 12-15-2024 [facility]ulatory [facility] Morrison[facility] flash OLS Facility:[facility] Start: 12-15-2024 [facility] Start: 12-11-2024 Registered Referred Carlos Cavazos - [facility] Start: 12-11-2024 End: 12-11-2024 ambulatory Carlos Maribelsaros OLS Facility:[facility] Start: 12-08-2024 [facility] Start: 12-08-2024 End: 12-08-2024 ambulatory Karon Delacruzlla OLS Facility:[facility] Start: 12-04-2024 [facility] Start: 12-04-2024 End: 12-04-2024 ambulatory Carlaaveer Mukkamalla OLS Facility:[facility] Start: 12-02-2024 [facility]ulatory [facility] Start: 12-02-2024 [facility] Start: 12-01-2024 ambulatory Carlos NOVAK Faci lity:[facility] Start: 12-01-2024 Registered Referred Carlos Cavazos - [facility] [place] Start: 11-28-2024 Registered Referred Carlos Cavazos - [facility] [place] Start: 11-28-2024 End: 11-28-2024 ambulatory Carlos NOVAK Facility:[facility] Start: 11-27-2024 Registered Referred Karon casillas MD -[facility] Start: 11-27-2024 End: 11-27-2024 ambulatory Karon NOVAK Facility:[facility] Start: 11-24-2024 ambulatory Karon NOVAK Facility:[facility] Start: 11-24-2024 [facility] Start: 11-20-2024 Registered Referred Karon casillas MD -[facility] Start: 11-20-2024 End: 11-20-2024 ambulatory Karon NOVAK Facility:[facility] Start: 11-17-2024 ambulatory Monika Carlos ty:[facility] Start: 11-17-2024 Registered Referred Karon casillas MD -[facility] Start: 11-13-2024 ambulatory Monika Carlos ty:[facility] Start: 11-13-2024 Registered Referred Karon casillas MD -[facility] Start: 11-10-2024 ambulatory Karon NOVAK Facility:[facility] Start: 11-10-2024 [facility] Start: 11-06-2024 Registered Referred Karon casillas MD -[facility] Start: 11-06-2024 End: 11-06-2024 ambulatory Karon NOVAK Facility:[facility] Start: 11-03-2024 End: 11-03-[address] Monika Staley MD Work Phone: -[facility] Start: 11-03-2024 End: 11-03-2024 Departed Referred Carlos Cavazos -[facility] [place] Start: 11-03-2024 Registered Referred Carlos Cavazos - [facility] Start: 11-03-2024 End: 11-03-2024 ambulatory Carlos NOVAK Facility:[facility] Start: 10-30-2024 End: 10-30-[address] Monika Staley MD Work Phone: -[facility] Start: 10-30-2024 End: 10-30-2024 Departed Referred Karon Corrales MD -[facility] [place] Start: 10-30-2024 Registered Referred Karon casillas MD -[facility] [place] Start: 10-30-2024 End: 10-30-2024 ambulatory Monika Staley Facility:[facility] Start: 10-27-2024 Registered Referred Karon casillas MD -[facility] Start: 10-27-2024 End: 10-27-2024 ambulatory Karon NOVAK Facility:[facility] Start: 10-23-2024 Registered Referred Karon casillas MD -[facility] Start: 10-23-2024 End: 10-23-2024 ambulatory Monika Staley Facility:[facility] Start: 10-20-2024 End: 10-20-[address] Monika Staley MD Work Phone: -[facility] Start: 10-20-2024 End: 10-20-2024 Departed Referred Karon Corrales MD -[facility] Start: 10-20-2024 Registered Referred Karon casillas MD -[facility] [place] Start: 10-20-2024 End: 10-20-2024 ambulatory Karon NOVAK Facility:[facility] Start: 10-16-2024 ambulatory Monika Horner Luís Facili ty:[facility] Start: 10-16-2024 [facility] Start: 10-13-2024 ambulatory Carlos NOVAK Faci lity:[facility] Start: 10-13-2024 Registered Referred Carlos Cavazos - [facility] Start: 10-09-2024 ambulatory Monika Horner Luís Facili ty:[facility] Start: 10-09-2024 Registered Referred Karon casillas MD -[facility] Start: 10-06-2024 ambulatory Carlos NOVAK Faci lity:[facility] Start: 10-06-2024 Registered Referred Carlos Cavazos - [facility] Start: 10-02-2024 ambulatory Monika Horner Luís Facili ty:[facility] Start: 10-02-2024 Registered Referred Karon casillas MD -[facility] [place] Start: 09-30-2024 End: 09-30-[address] Monika Staley MD Work Phone: [facility] Work Phone: Start: 09-30-2024 End: 09-30-2024 Departed Referred Karon Corrales MD -[facility] [place] Start: 09-30-2024 [facility] [place] Start: 09-30-2024 End: 09-30-2024 ambulatory Karon NOVAK Facility:[facility] Start: 09-25-2024 ambulatory Karon NOVAK Facility:[facility] Start: 09-25-2024 [facility] [place] Start: 09-22-2024 End: 09-22-[address] Monika Staley MD Work Phone: -[facility] [place] Start: 09-22-2024 End: 09-22-2024 Departed Referred Karon Corrales MD -[facility] Start: 09-22-2024 Registered Referred Karon casillas MD -[facility] Start: 09-22-2024 End: 09-22-2024 ambulatory Karon NOVAK Facility:[facility] Start: 09-18-2024 End: 09-18-[address] Monika Staley MD Work Phone: -[facility] Start: 09-18-2024 End: 09-18-2024 Departed Referred Karon Corrales MD -[facility] Start: 09-18-2024 Registered Referred Karon casillas MD -[facility] Start: 09-18-2024 End: 09-18-2024 ambulatory Karon NOVAK Facility:[facility] Start: 09-15-2024 End: 09-15-[address] Monika Staley MD Work Phone: [facility] Work Phone: Start: 09-15-2024 End: 09-15-2024 Departed Referred Carlos Cavazos -[facility] Start: 09-15-2024 Registered Referred Carlos Cavazos - [facility] Start: 09-15-2024 End: 09-15-2024 ambulatory Carlos NOVAK Facility:[facility] Start: 09-11-2024 ambulatory Karon NOVAK Facility:[facility] Start: 09-11-2024 Registered Referred Karon casillas MD -[facility] Start: 09-08-2024 End: 09-08-[address] Monika Staley MD Work Phone: [facility] Work Phone: Start: 09-08-2024 End: 09-08-2024 Departed Referred Karon Corrales MD -[facility] Start: 09-08-2024 Registered Referred Karon casillas MD -[facility] Start: 09-08-2024 End: 09-08-2024 ambulatory Karon NOVAK Facility:[facility] Start: 09-04-2024 End: 09-04-2024 Departed Referred Carlos Cavazos -[facility] Start: 09-04-2024 Registered Referred Carlos Cavazos - [facility] Start: 09-04-2024 End: 09-04-2024 ambulatory Carlos Cavazos OLS Facility:[facility] Start: 09-01-2024 End: 09-01-[address] Monika Staley MD Work Phone: [facility] Work Phone: Start: 09-01-2024 End: 09-01-2024 Departed Referred Carlos Cavazos -[facility] Start: 09-01-2024 Registered Referred Carlos Maribelkameron - [facility] Start: 09-01-2024 End: 09-01-2024 ambulatory Carlos NOVAK Facility:[facility] Start: 08-28-2024 End: 08-28-[address] Monika Staley MD Work Phone: [facility] Work Phone: Start: 08-28-2024 End: 08-28-2024 Departed Referred Carlos Cavazos -[facility] Start: 08-28-2024 Registered Referred Carlos Abdelrahmanros - [facility] Start: 08-28-2024 End: 08-28-2024 ambulatory Carlos NOVAK Facility:[facility] Start: 08-25-2024 End: 08-25-[address] Monika Staley MD Work Phone: [facility] Work Phone: Start: 08-25-2024 End: 08-25-2024 Departed Referred Karon Corrales MD -[facility] Start: 08-25-2024 Registered Referred Karon casillas MD -[facility] [place] Start: 08-25-2024 End: 08-25-2024 ambulatory Carlaamber Morrisonmingshellie OLS Facility:[facility] Start: 08-21-2024 End: 08-21-[address] Monika Staley MD Work Phone: [facility] Work Phone: Start: 08-21-2024 End: 08-21-2024 Departed Referred Karon Corrales MD -[facility] [place] Start: 08-21-2024 Registered Referred Karon casillas MD -[facility] Start: 08-21-2024 End: 08-21-2024 ambulatory Carlaamber Davidinga OLS Facility:[facility] Start: 08-18-2024 End: 08-18-[address] Monika Staley MD Work Phone: [facility] Work Phone: Start: 08-18-2024 End: 08-18-2024 Departed Referred Karon Corrales MD -[facility] [place] Start: 08-18-2024 Registered Referred Karon casillas MD -[facility] [place] Start: 08-18-2024 End: 08-18-2024 ambulatory Carlavilmanoe Hernandezelismingshellie OLS Facility:[facility] Start: 08-14-2024 End: 08-14-[address] Monika Staley MD Work Phone: [facility] Work Phone: Start: 08-14-2024 End: 08-14-2024 Departed Referred Karon Corrales MD -[facility] [place] Start: 08-14-2024 Registered Referred Karon casillas MD -[facility] [place] Start: 08-14-2024 End: 08-14-2024 ambulatory Carlaamber Corrales OLS Facility:[facility] Start: 08-11-2024 End: 08-11-2024 Departed Referred Karon Corrales MD -[facility] Start: 08-11-2024 Registered Referred Karon casillas MD -[facility] Start: 08-11-2024 End: 08-11-2024 ambulatory Karon NOVAK Facility:[facility] Start: 08-07-2024 End: 08-07-2024 Departed Referred Carlos Maribelsaros -[facility] Start: 08-07-2024 Registered Referred Carlos Maribelsaros - [facility] Start: 08-07-2024 End: 08-07-2024 ambulatory Carlos NOVAK Facility:[facility] Start: 08-04-2024 End: 08-04-[address] Monika Staley MD Work Phone: [facility] Work Phone: Start: 08-04-2024 End: 08-04-2024 Departed Referred Carlos Maribelsaros -[facility] Start: 08-04-2024 Registered Referred Carlos Maribelsaros - [facility] Start: 08-04-2024 End: 08-04-2024 ambulatory Carlos NOVAK Facility:[facility] Start: 07-31-2024 End: 07-31-[address] Monika Staley MD Work Phone: [facility] Work Phone: Start: 07-31-2024 End: 07-31-2024 Departed Referred Karon Corrales MD -[facility] Start: 07-31-2024 Registered Referred Karon casillas MD -[facility] Start: 07-31-2024 End: 07-31-2024 ambulatory Karon NOVAK Facility:[facility] Start: 07-28-2024 End: 07-28-[address] Monika Staley MD Work Phone: [facility] Work Phone: Start: 07-28-2024 End: 07-28-2024 Departed Referred Karon Corrales MD -[facility] [place] Start: 07-28-2024 Registered Referred Karon casillas MD -[facility] Start: 07-28-2024 End: 07-28-2024 ambulatory Karon NOVAK Facility:[facility] Start: 07-25-2024 End: 07-25-[address] Monika Staley MD Work Phone: [facility] Work Phone: Start: 07-25-2024 End: 07-25-2024 Departed Referred Carlos Cavazos -[facility] Start: 07-25-2024 Registered Referred Carlos Reeder [facility] Start: 07-24-2024 End: 07-25-[address] Monika Staley MD Work Phone: [facility] Work Phone: Start: 07-24-2024 End: 07-24-2024 Departed Referred Karon Corrales MD -[facility] [place] Start: 07-24-2024 Registered Referred Karon casillas MD -[facility] [place] Start: 07-24-2024 End: 07-24-2024 ambulatory Karon NOVAK Facility:[facility] Start: 07-21-2024 End: 07-21-[address] Monika Staley MD Work Phone: [facility] Work Phone: Start: 07-21-2024 End: 07-21-2024 Departed Referred Karon Corrales MD -[facility] [place] Start: 07-21-2024 [facility] [place] Start: 07-21-2024 End: 07-21-2024 ambulatory Karon NOVAK Facility:[facility] Start: 07-17-2024 End: 07-17-[address] Monika Staley MD Work Phone: [facility] Work Phone: Start: 07-17-2024 End: 07-17-2024 Departed Referred Karon Corrales MD -[facility] [place] Start: 07-17-2024 Registered Referred Karon casillas MD -[facility] Start: 07-17-2024 End: 07-17-2024 ambulatory Karon NOVAK Facility:[facility] Start: 07-14-2024 End: 07-14-[address] Monika Staley MD Work Phone: [facility] Work Phone: Start: 07-14-2024 End: 07-14-2024 Departed Referred Carlos Cavazos -[facility] Start: 07-14-2024 Registered Referred Carlos Lópezsaviri - [facility] Start: 07-14-2024 End: 07-14-2024 ambulatory Carlos NOVAK Facility:[facility] Start: 07-11-2024 End: 07-11-[address] Monika Staley MD Work Phone: [facility] Work Phone: Start: 07-11-2024 End: 07-11-2024 Departed Referred Carlos Cavazos -[facility] Start: 07-11-2024 Registered Referred Carlos Lópezsaviri - [facility] Start: 07-11-2024 End: 07-11-2024 ambulatory Carlos NOVAK Facility:[facility] Start: 07-07-2024 End: 07-07-[address] Monika Staley MD Work Phone: [facility] Work Phone: Start: 07-07-2024 End: 07-07-2024 Departed Referred Karon Corrales MD -[facility] Start: 07-07-2024 Registered Referred [facility] -[facility] Start: 07-07-2024 End: 07-07-2024 ambulatory Karon NOVAK Facility:[facility] Start: 07-03-2024 End: 07-03-[address] Monika Staley MD Work Phone: [facility] Work Phone: Start: 07-03-2024 End: 07-03-2024 Departed Referred Kvng Crisostomo MD -[facility] Start: 07-03-2024 Registered Referred Kvng Crisostomo MD -[facility] Start: 07-03-2024 End: 07-03-2024 ambulatory Kvng NOVAK Facility:[facility] Start: 06-30-2024 End: 06-30-[address] Monika Staley MD Work Phone: [facility] Work Phone: Start: 06-30-2024 End: 06-30-2024 Departed Referred Kvng Crisostomo MD -[facility] Start: 06-30-2024 Registered Referred Kvng Crisostomo MD -[facility] Start: 06-30-2024 End: 06-30-2024 ambulatory Kvng NOVAK Facility:[facility] Start: 06-26-2024 ambulatory Kvng NOVAK Fac ility:[facility] Start: 06-26-2024 Registered Referred Kvng Crisostomo MD -[facility] Start: 06-23-2024 End: 06-23-[address] Monika Staley MD Work Phone: [facility] Work Phone: Start: 06-23-2024 End: 06-23-2024 Departed Referred Carlos [facility] [place] Start: 06-23-2024 Registered Referred Carlos Reeder [facility] Start: 06-23-2024 End: 06-23-2024 ambulatory Carlos NOVAK Facility:[facility] Start: 06-19-2024 End: 06-19-[address] Monika Staley MD Work Phone: [facility] Work Phone: Start: 06-19-2024 End: 06-19-2024 Departed Referred Kvng Crisostomo MD -[facility] Start: 06-19-2024 Registered Referred Kvng Crisostomo MD -[facility] [place] Start: 06-19-2024 End: 06-19-2024 ambulatory Monika Staley Facility:[facility] Start: 06-16-2024 End: 06-16-[address] Monika Staley MD Work Phone: [facility] Work Phone: Start: 06-16-2024 End: 06-16-2024 Departed Referred Kvng Crisostomo MD -[facility] Start: 06-16-2024 Registered Referred Kvng Crisostomo MD -[facility] Start: 06-16-2024 End: 06-16-2024 ambulatory Monika Staley Facility:[facility] Start: 06-12-2024 End: 06-12-[address] Monika Staley MD Work Phone: [facility] Work Phone: Start: 06-12-2024 End: 06-12-2024 Departed Referred Kvng Crisostomo MD -[facility] Start: 06-12-2024 Registered Referred Kvng Crisostomo MD -[facility] Start: 06-12-2024 End: 06-12-2024 ambulatory Kvng NOVAK Facility:[facility] Start: 06-09-2024 End: 06-09-[address] Monika Staley MD Work Phone: [facility] Work Phone: Start: 06-09-2024 End: 06-09-2024 Departed Referred Carlos Chavez [facility] [place] Start: 06-09-2024 Registered Referred Carlos Chavez [facility] [place] Start: 06-09-2024 End: 06-09-2024 ambulatory Monika Staley Facility:[facility] Start: 06-05-2024 End: 06-05-[address] Monika Staley MD Work Phone: [facility] Work Phone: Start: 06-05-2024 End: 06-05-2024 Departed Referred Kvng [facility] [place] Start: 06-05-2024 End: 06-05-2024 ambulatory Kvng NOVAK Facility:[facility] Start: 06-02-2024 End: 06-02-[address] Monika Staley MD Work Phone: [facility] Work Phone: Start: 06-02-2024 End: 06-02-2024 Departed Referred Kvng [facility] [place] Start: 06-02-2024 Registered Referred Kvng Crisostomo MD -[facility] Start: 06-02-2024 End: 06-02-2024 ambulatory Kvng NOVAK Facility:[facility] Start: 05-29-2024 End: 05-29-[address] Monika Staley MD Work Phone: [facility] Work Phone: Start: 05-29-2024 End: 05-29-2024 Departed Referred Kvng [facility] [place] Start: 05-29-2024 Registered Referred Kvng [facility] Start: 05-29-2024 End: 05-29-2024 ambulatory Kvng NOVAK Facility:[facility] Start: 05-26-2024 End: 05-26-[address] Monika Staley MD Work Phone: [facility] Work Phone: Start: 05-26-2024 End: 05-26-2024 [facility] Start: 05-26-2024 Registered Referred Carlos Reeder [facility] Start: 05-26-2024 End: 05-26-2024 ambulatory Carlos NOVAK Facility:[facility] Start: 05-22-2024 ambulatory Kvgn NOVAK Fac ility:[facility] Start: 05-22-2024 [facility] Start: 05-20-2024 End: 05-20-2024 [facility] Start: 05-19-2024 End: 05-20-2024 ambulatory Kvng NOVAK Facility:[facility] Start: 05-19-2024 Registered [facility] Start: 05-15-2024 End: 05-15-2024 [facility]ed [facility] Start: 05-15-2024 End: 05-15-2024 ambulatory Kvng NOVAK Facility:[facility] Start: 05-12-2024 End: 05-12-2024 Departed Referred Carlos Moren[facility]ary [facility] Start: 05-12-2024 End: 05-12-2024 ambulatory Carlos NOVKA Facility:[facility] Start: 05-09-2024 End: 05-09-2024 [facility] Start: 05-09-2024 End: 05-09-2024 ambulatory Kvng NOVAK Facility:[facility] Start: 05-08-2024 End: 05-08-2024 [facility] Start: 05-08-2024 End: 05-08-2024 ambulatory Kvng Crisostomoluis enrique NOVAK Facility:[facility] Start: 05-05-2024 End: 05-05-2024 Departed Referred Kvng Crisostomo MD -[facility] Start: 05-05-2024 End: 05-05-2024 ambulatory Vicenterocio Jonesluis enrique NOVAK Facility:[facility] Start: 05-01-2024 End: 05-01-2024 Departed Referred Kvng Crisostomo MD -[facility] Start: 05-01-2024 End: 05-01-2024 ambulatory Vicenterocio Andressa NOVAK Facility:[facility] Start: 04-28-2024 End: 04-28-2024 Departed Referred Carlos Cavazos -[facility] Start: 04-28-2024 End: 04-28-2024 ambulatory Carlos NOVAK Facility:[facility] Start: 04-24-2024 End: 04-24-2024 Departed Referred Kvng Crisostomo MD -[facility] Start: 04-24-2024 End: 04-24-2024 ambulatory Vicenterocio Andressa NOVAK Facility:[facility] Start: 04-21-2024 End: 04-21-2024 Departed Referred Carlos Cavazos -[facility] Start: 04-21-2024 End: 04-21-2024 ambulatory Carlos NVOAK Facility:[facility] Start: 04-17-2024 ambulatory Vicenterocio Jonesur OLS Fac ility:[facility] Start: 04-17-2024 [facility] Start: 04-14-2024 ambulatory Vicenterocio Jonesluis enrique NOVAK Fac ility:[facility] Start: 04-14-2024 Registered Referred Kvng Crisostomo MD -[facility] Start: 04-10-2024 End: 04-10-2024 [facility] Start: 04-10-2024 End: 04-10-2024 ambulatory Vicentesigifredokarolmilton Andressa NOVAK Facility:[facility] Start: 04-07-2024 End: 04-07-2024 Departed Referred Carlos Cavazos -[facility] Start: 04-07-2024 End: 04-07-2024 ambulatory Carlos NOVAK Facility:[facility] Start: 04-04-2024 ambulatory Kvng NOVAK Fac ility:[facility] Start: 04-04-2024 Registered Referred Kvng Crisostomo MD -[facility] Start: 03-31-2024 End: 03-31-2024 Departed Referred Carlos Cavazos -[facility] Start: 03-31-2024 End: 03-31-2024 ambulatory Carlos NOVAK Facility:[facility] Start: 03-27-2024 End: 03-27-2024 Departed Referred [facility] Start: 03-27-2024 End: 03-27-2024 ambulatory [facility] Facility:[facility] Start: 03-24-2024 End: 03-24-2024 Departed Referred Kvng Crisostomo MD -[facility] Start: 03-24-2024 End: 03-24-2024 ambulatory Kvng NOVAK Facility:[facility] Start: 03-20-2024 End: 03-20-2024 Departed Referred [facility] Start: 03-20-2024 End: 03-20-2024 ambulatory [facility] Facility:[facility] Start: 03-19-2024 End: 03-19-2024 Departed Referred Kvng Crisostomo MD -[facility] Start: 03-19-2024 End: 03-19-2024 ambulatory Kvng NOVAK Facility:[facility] Start: 03-18-2024 End: 03-18-2024 Departed Referred [facility] Start: 03-17-2024 End: 03-17-2024 Departed Referred [facility] Start: 03-14-2024 End: 03-14-2024 Departed Referred Carlos Cavazos -[facility] Start: 03-13-2024 End: 03-13-2024 Departed Referred [facility] Start: 09-13-2023 End: 09-13-2023 ambulatory [facility] Start: 09-13-2023 End: 09-13-2023 Office outpatient visit 25 minutes Rebecca Buck MD Work Phone: [facility] Comment on above: Left flank pain (Christina magui Dx); BPH with urinary obstruction; History of kidney stones Start: 09-06-2023 End: 09-07-2023 ambulatory [facility] Start: 09-06-2023 End: 09-06-2023 Subsequent hospital visit by physician Rebecca Buck MD Work Phone: [facility] CT Imaging Comment on above: Left flank pain; Calculus of ureter Start: 08-31-2023 [facility]ulatory [facility] Start: 08-31-2023 Patient encounter procedure [facility] Start: 08-21-2023 Telephone encounter Rebecca Buck MD Work Phone: [facility] Clinical Communication Comment on above: CT appt Boaz advice Start: 08-21-2023 [facility] Start: 08-13-2023 End: 08-13-2023 ambulatory [facility] Start: 08-13-2023 End: 08-13-2023 Office outpatient new 45 minutes Rebecca Buck MD Work Phone: [facility] Comment on above: Left flank pain (Christina magui Dx); Calculus of ureter; Disease of prostate; BPH with urinary obstruction Start: 08-03-2023 End: 08-03-2023 ambulatory [facility] Work Phone: Start: 08-03-2023 End: 08-03-2023 Departed Referred [facility] Start: 07-20-2023 End: 07-20-2023 ambulatory [facility] Work Phone: Start: 07-20-2023 End: 07-20-2023 Departed Referred [facility] Start: 07-20-2023 Registered Referred [facility] Start: 07-18-2023 End: 07-18-2023 ambulatory [facility] Work Phone: Start: 07-18-2023 End: 07-18-2023 [facility] Start: 07-18-2023 [facility] Start: 07-16-2023 End: 07-16-2023 ambulatory [facility] Work Phone: Start: 07-16-2023 End: 07-16-2023 [facility] Start: 07-16-2023 [facility] Start: 07-13-2023 End: 07-13-2023 ambulatory [facility] Work Phone: Start: 07-13-2023 End: 07-13-2023 [facility] Start: 07-13-2023 [facility] Start: 07-12-2023 End: 07-12-2023 ambulatory [facility] Work Phone: Start: 07-12-2023 End: 07-12-2023 [facility] Start: 07-12-2023 Registered Referred [facility] Start: 07-05-2023 End: 07-05-2023 ambulatory [facility] Work Phone: Start: 07-05-2023 End: 07-05-2023 [facility] Start: 07-05-2023 [facility] Start: 07-02-2023 [facility] Start: 06-28-2023 End: 06-28-2023 ambulatory [facility] Work Phone: Start: 06-28-2023 End: 06-28-2023 [facility] Start: 06-28-2023 Registered Referred [facility] Start: 06-25-2023 Telephone encounter Rebecca Buck MD Work Phone: [facility] Start: 06-25-2023 End: 06-25-2023 ambulatory [facility] Work Phone: Start: 06-25-2023 End: 06-25-2023 [facility] Start: 06-25-2023 [facility] Start: 06-21-2023 End: 06-21-2023 ambulatory [facility] Work Phone: Start: 06-21-2023 End: 06-21-2023 [facility] Start: 06-21-2023 [facility] Start: 06-13-2023 End: 06-13-2023 ambulatory [facility] Work Phone: Start: 06-13-2023 End: 06-13-2023 [facility] Start: 06-06-2023 End: 06-06-2023 ambulatory [facility] Work Phone: Start: 06-06-2023 End: 06-06-2023 [facility] Start: 06-06-2023 [facility] Start: 05-23-2023 End: 05-23-2023 ambulatory [facility] Work Phone: Start: 05-23-2023 End: 05-23-2023 [facility] Start: 05-09-2023 End: 05-09-2023 [facility] Start: 05-09-2023 [facility] Start: 04-23-2023 End: 04-23-2023 [facility] Start: 04-09-2023 End: 04-09-2023 ambulatory [facility] Work Phone: Start: 04-09-2023 End: 04-09-2023 [facility] Start: 04-09-2023 [facility] Start: 04-02-2023 End: 04-02-2023 ambulatory [facility] Work Phone: Start: 04-02-2023 End: 04-02-2023 [facility] Start: 04-02-2023 [facility] Start: 03-26-2023 End: 03-26-2023 ambulatory [facility] Work Phone: Start: 03-26-2023 End: 03-26-2023 [facility] Start: 03-26-2023 [facility] Start: 03-22-2023 End: 03-22-2023 ambulatory [facility] Work Phone: Start: 03-22-2023 End: 03-22-2023 [facility] Start: 03-22-2023 [facility] Start: 03-08-2023 End: 03-08-2023 ambulatory [facility] Work Phone: Start: 03-08-2023 End: 03-08-2023 [facility] Start: 02-22-2023 End: 02-22-2023 ambulatory [facility] Work Phone: Start: 02-22-2023 End: 02-22-2023 Departed Referred [facility] [employer] Start: 02-22-2023 Registered Ref[facility] Start: 02-15-2023 End: 02-15-2023 ambulatory [facility] Work Phone: Start: 02-15-2023 End: 02-15-2023 Departed Referred [facility] [employer] Start: 02-15-2023 Registered [facility] [employer] Start: 02-08-2023 End: 02-08-2023 ambulatory [facility] Work Phone: Start: 02-08-2023 End: 02-08-2023 Departed Referred [facility] [employer] Start: 01-31-2023 End: 01-31-2023 ambulatory [facility] Work Phone: Start: 01-31-2023 End: 01-31-2023 Departed Referred [facility] [employer] Start: 01-31-2023 Registered Referred [facility] [place] [facility] Start: 01-29-2023 End: 01-29-2023 Departed Referred [facility] Start: 01-29-2023 Registered Ref[facility] [place] [facility] Start: 01-26-2023 End: 01-26-2023 Departed Referred [facility] [place] [employer] Start: 01-26-2023 Registered Referred [facility] [place] [employer] Start: 01-24-2023 End: 01-24-2023 Departed Referred [facility] [place] [employer] Start: 01-24-2023 Registered Referred [facility] [place] [employer] Start: 01-22-2023 End: 01-22-2023 ambulatory [facility] Work Phone: Start: 01-22-2023 End: 01-22-2023 [facility] Start: 01-22-2023 [facility] Start: 01-10-2023 End: 01-10-2023 ambulatory [facility] Work Phone: Start: 01-10-2023 End: 01-10-2023 [facility] Start: 01-10-2023 [facility] Start: 12-27-2022 End: 12-27-2022 ambulatory [facility] Work Phone: Start: 12-27-2022 End: 12-27-2022 [facility] Start: 12-27-2022 [facility] Start: 12-21-2022 End: 12-21-2022 ambulatory [facility] Work Phone: Start: 12-21-2022 End: 12-21-2022 [facility]ed [facility] Start: 12-21-2022 [facility] Start: 12-14-2022 End: 12-14-2022 ambulatory [facility] Work Phone: Start: 12-14-2022 End: 12-14-2022 [facility]ed [facility] Start: 12-14-2022 [facility] Start: 12-07-2022 End: 12-07-2022 ambulatory [facility] Work Phone: Start: 12-07-2022 End: 12-07-2022 [facility] Start: 12-07-2022 [facility] Start: 11-24-2022 End: 11-24-2022 ambulatory [facility] Work Phone: Start: 11-24-2022 End: 11-24-2022 Departed Referred [facility] [employer] Start: 11-24-2022 Registered [facility] [employer] Start: 11-23-2022 End: 11-23-2022 ambulatory [facility] Work Phone: Start: 11-23-2022 End: 11-23-2022 [facility]ed [facility] Start: 11-23-2022 [facility] Start: 11-22-2022 End: 11-22-2022 ambulatory [facility] Work Phone: Start: 11-22-2022 End: 11-22-2022 [facility]ed [facility] Start: 11-22-2022 [facility] Start: 11-09-2022 End: 11-09-2022 ambulatory [facility] Work Phone: Start: 11-09-2022 End: 11-09-2022 [facility]ed [facility] Start: 11-09-2022 Registered [facility] Start: 10-26-2022 End: 10-26-2022 [facility]ed [facility] Start: 10-26-2022 Registered [facility] [employer] Start: 10-12-2022 End: 10-12-2022 ambulatory [facility] Work Phone: Start: 10-12-2022 End: 10-12-2022 [facility]ed [facility] Start: 10-12-2022 [facility] Start: 10-05-2022 End: 10-05-2022 [facility]ed [facility] Start: 10-05-2022 [facility] Start: 09-28-2022 End: 09-28-2022 ambulatory [facility] Work Phone: Start: 09-28-2022 End: 09-28-2022 [facility]ed [facility] Start: 09-14-2022 End: 09-14-2022 [facility]ed [facility] Start: 08-31-2022 End: 08-31-2022 [facility]ed [facility] Start: 08-31-2022 [facility] Start: 08-23-2022 End: 08-23-2022 ambulatory [facility] Work Phone: Start: 08-23-2022 End: 08-23-2022 [facility]ed [facility] Start: 08-23-2022 [facility] Start: 08-17-2022 End: 08-17-2022 ambulatory [facility] Work Phone: Start: 08-17-2022 End: 08-17-2022 [facility]ed [facility] Start: 08-17-2022 [facility] Start: 08-14-2022 End: 08-14-2022 ambulatory [facility] Work Phone: Start: 08-14-2022 End: 08-14-2022 [facility]ed [facility] Start: 08-14-2022 [facility] Start: 07-31-2022 End: 07-31-2022 ambulatory [facility] Work Phone: Start: 07-31-2022 End: 07-31-2022 [facility]ed [facility] Start: 07-31-2022 Registered Referred [facility] [employer] Start: 07-24-2022 End: 07-24-2022 ambulatory [facility] Work Phone: Start: 07-24-2022 End: 07-24-2022 [facility]ed [facility] Start: 07-24-2022 Registered [facility] [place] [employer] Start: 07-20-2022 End: 07-20-2022 Dep[facility]ed [facility] Start: 07-20-2022 Registered [facility] Start: 07-17-2022 End: 07-17-2022 [facility]ed [facility] Start: 07-17-2022 [facility] Start: 07-11-2022 [facility] Start: 07-10-2022 End: 07-10-2022 ambulatory [facility] Work Phone: Start: 07-10-2022 End: 07-10-2022 [facility]ed [facility] Start: 07-10-2022 [facility] Start: 07-03-2022 End: 07-03-2022 ambulatory [facility] Work Phone: Start: 07-03-2022 End: 07-03-2022 [facility]ed [facility] Start: 07-03-2022 [facility] Start: 06-27-2022 End: 06-27-2022 ambulatory [facility] Work Phone: Start: 06-27-2022 End: 06-27-2022 [facility]ed [facility] Start: 06-27-2022 [facility] Start: 06-13-2022 End: 06-13-2022 ambulatory [facility] Work Phone: Start: 06-13-2022 End: 06-13-2022 Departed Referred [facility] [place] [employer] Start: 06-13-2022 Registered [facility] [place] [employer] Start: 06-06-2022 End: 06-06-2022 ambulatory [facility] Work Phone: Start: 06-06-2022 End: 06-06-2022 [facility]ed [facility] Start: 06-06-2022 [facility] Start: 05-30-2022 End: 05-30-2022 ambulatory [facility] Work Phone: Start: 05-30-2022 End: 05-30-2022 [facility]ed [facility] Start: 05-30-2022 [facility] Start: 05-16-2022 End: 05-16-2022 ambulatory [facility] Work Phone: Start: 05-16-2022 End: 05-16-2022 [facility]ed [facility] Start: 05-16-2022 Registered [facility] [place] [employer] Start: 05-02-2022 End: 05-02-2022 ambulatory [facility] Work Phone: Start: 05-02-2022 End: 05-02-2022 [facility]ed [facility] Start: 05-02-2022 [facility] Start: 04-27-2022 End: 04-27-2022 ambulatory [facility] Work Phone: Start: 04-27-2022 End: 04-27-2022 [facility]ed [facility] Start: 04-27-2022 Registered Referred [facility] [employer] Start: 04-26-2022 End: 04-26-2022 ambulatory [facility] Work Phone: Start: 04-26-2022 End: 04-26-2022 Departed Referred [facility] [employer] Start: 04-11-2022 End: 04-11-2022 ambulatory [facility] Work Phone: Start: 04-11-2022 End: 04-11-2022 Departed Referred [facility] [place] [facility] Start: 03-28-2022 End: 03-28-2022 Departed Referred [facility] [employer] Start: 03-28-2022 Registered Referred [facility] [employer] Start: 03-23-2022 End: 03-23-2022 Departed Referred [facility] [employer] Start: 03-23-2022 Registered [facility] [place] [facility] Start: 03-16-2022 End: 03-16-2022 ambulatory [facility] Work Phone: Start: 03-16-2022 End: 03-16-2022 Departed Referred [facility] [place] [facility] Start: 03-16-2022 Registered [facility] [place] [employer] Start: 03-09-2022 End: 03-09-2022 ambulatory [facility] Work Phone: Start: 03-09-2022 End: 03-09-2022 Departed Referred [facility] [place] [employer] Start: 03-09-2022 Registered [facility] [place] [employer] Start: 03-06-2022 End: 03-06-2022 ambulatory [facility] Work Phone: Start: 03-06-2022 End: 03-06-2022 [facility]ed [facility] Start: 03-06-2022 Registered Ref[facility] [employer] Start: 03-02-2022 End: 03-03-2022 Emergency department patient visit UNKNOWN PROVIDER [facility] Start: 03-02-2022 End: 03-02-2022 Emergency department patient visit Lanette Munguia Work Phone: [facility] Emergency Dept Comment on above: Fall, initial encoun ter (Primary Dx); Anticoagulated Start: 02-20-2022 End: 02-20-2022 Departed Referred [facility] Start: 02-20-2022 Registered Referred [facility] Start: 02-13-2022 End: 02-13-2022 ambulatory [facility] Work Phone: Start: 02-13-2022 End: 02-13-2022 Departed Referred [facility] Start: 02-13-2022 Registered [facility] Start: 02-06-2022 End: 02-06-2022 ambulatory [facility] Work Phone: Start: 02-06-2022 End: 02-06-2022 Departed Referred [facility] Start: 02-06-2022 Registered Referred [facility] [employer] Start: 01-30-2022 End: 01-30-2022 Departed Referred [facility] [employer] Start: 01-30-2022 Registered Referred [facility] Start: 01-26-2022 End: 01-26-2022 ambulatory [facility] Work Phone: Start: 01-26-2022 End: 01-26-2022 Departed Referred [facility] [employer] Start: 01-26-2022 Registered Referred [facility] [employer] Start: 01-19-2022 End: 01-19-2022 ambulatory [facility] Work Phone: Start: 01-19-2022 End: 01-19-2022 [facility] Start: 01-19-2022 [facility] Start: 01-17-2022 [facility]ulatory [facility] Start: 01-10-2022 ambulatory [facility] Start: 01-10-2022 End: 01-10-2022 ambulatory [facility] Work Phone: Start: 01-10-2022 End: 01-10-2022 [facility] Start: 01-10-2022 Registered [facility] [place] [employer] Start: 01-06-2022 AUDIT Monika Elias rt Work Phone: [facility] Work Phone: Start: 01-05-2022 End: 01-05-2022 [facility] Start: 01-05-2022 [facility] Start: 12-30-2021 End: 12-30-2021 [facility]ed [facility] Start: 12-30-2021 Registered [facility] Start: 12-28-2021 End: 12-28-2021 ambulatory [facility] Work Phone: Start: 12-28-2021 End: 12-28-2021 [facility] Start: 12-28-2021 [facility] Start: 12-26-2021 End: 12-26-2021 ambulatory [facility] Work Phone: Start: 12-26-2021 End: 12-26-2021 [facility] Start: 12-26-2021 [facility] Start: 12-22-2021 End: 12-22-2021 ambulatory [facility] Work Phone: Start: 12-22-2021 End: 12-22-2021 Departed Referred [facility] Start[facility] 12-22-2021 Registered Referred [facility] Start: 12-22-2021 End: 12-22-2021 [facility] Start: 12-21-2021 End: 12-22-2021 Emergency department patient visit Sharon Olivia MD Work Phone: [facility] Emergency Dept Comment on above: Heel ulceration, lef t, with unspecified severity (HCC) (Primary Dx) Start: 12-19-2021 End: 12-19-2021 ambulatory [facility] Work Phone: Start: 12-19-2021 End: 12-19-2021 Departed Referred [facility] Start: 12-19-2021 Registered Referred [facility] Start: 12-12-2021 End: 12-12-2021 ambulatory [facility] Work Phone: Start: 12-12-2021 End: 12-12-2021 Departed Referred [facility] Start: 12-12-2021 Registered Referred [facility] Start: 12-08-2021 End: 12-08-2021 ambulatory [facility] Work Phone: Start: 12-08-2021 End: 12-08-2021 Departed Referred [facility] Start: 12-08-2021 Registered Referred [facility] Start: 12-05-2021 End: 12-05-2021 ambulatory [facility] Work Phone: Start: 12-05-2021 End: 12-05-2021 Departed Referred [facility] Start: 12-05-2021 [facility] Start: 12-01-2021 End: 12-01-2021 [facility] Start: 12-01-2021 [facility] Start: 11-28-2021 End: 11-28-2021 [facility] Start: 11-28-2021 [facility] [employer] Start: 11-25-2021 Rx Renewal Monika Elias rt Work Phone: [id number] Work Phone: Start: 11-23-2021 End: 11-23-2021 [facility] Start: 11-23-2021 [facility] Start: 11-22-2021 End: 11-22-2021 [facility] Start: 11-22-2021 [facility] [employer] [facility] Start: 11-21-2021 End: 11-21-2021 [facility] Start: 11-15-2021 AUDIT Shiela Jada rt Work Phone: [id number] Work Phone: Start: 11-14-2021 End: 11-14-2021 [facility] Start: 11-14-2021 [facility] Start: 11-08-2021 End: 11-08-2021 [facility] Start: 11-08-2021 [facility] Start: 11-04-2021 End: 11-04-2021 [facility] Start: 11-04-2021 Registered Referred [facility] Start: 10-31-2021 End: 11-01-2021 Emergency department patient visit UNKNOWN PROVIDER [facility] Start: 10-31-2021 End: 11-01-2021 Emergency department patient visit Dante Kim MD Work Phone: [facility] Emergency Dept Comment on above: Other fatigue (Prima ry Dx) Start: 10-31-2021 End: 10-31-2021 Departed Referred [facility] Start: 10-21-2021 End: 10-29-2021 Evaluation and management of inpatient UNKNOWN PROVIDER [facility] Start: 10-21-2021 End: 10-29-2021 Evaluation and management of inpatient Lisa Michelle DO Work Phone: [facility] Comment on above: Leg swelling (Primar y Dx); Acute deep vein thrombosis (DVT) of proximal vein of lower extremity, unspecified laterality (HCC) Start: 10-20-2021 End: 10-20-2021 Departed Referred [facility] Start: 10-17-2021 Telephone encounter Nicole davis MD Work Phone: [facility] Comment on above: Missed Appointment Start: 09-19-2021 End: 09-19-2021 Departed Referred [facility] Start: 11-02-2020 AUDIT Monika Elias rt Work Phone: [facility] Work Phone: Start: 10-27-2020 AUDIT Monika Elias rt Work Phone: [facility] Work Phone: Start: 07-13-2020 Patient encounter procedure Monika Staley [facility] Work Phone: Start: 04-13-2020 [facility] Work Phone: Start: 04-07-2020 Patient encounter procedure Wing Ritter [facility] Work Phone: Start: 03-18-2020 Patient encounter procedure Wign Stone [facility] Work Phone: Start: 01-20-2020 Patient encounter procedure Monika Staley MD YF-Atvftkimsh-Nnpxx Work Phone: Start: 11-13-2019 End: 11-13-2019 Subsequent hospital visit by physician [facility] Comment on above: Non-pressure chronic ulcer left lower leg, 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] Start: 11-06-2019 Patient encounter procedure Monika Staley MD TI-Dwrntunbik-Fufxk Work Phone: Start: 06-18-2019 End: 06-18-2019 Subsequent [...] Start: 10-26-2021 Electroencephalogram w/rec awake&asleep Sarina Pineda PRODUCT ACCOUNTANT - INTENSIVE CARE AMBULANCE PARAMEDIC Work Phone: Start: 10-26-2021 Ct head/brain w/o co ntrast material Sarina Pineda PRODUCT ACCOUNTANT - INTENSIVE C[employer] AMBULANCE PARAMEDIC Work Phone: Start: 10-26-2021 Prothrombin time Andres Sheridan MD Work Phone: Start: 10-25-2021 Speech and language therapy regime Sarina Pineda PRODUCT ACCOUNTANT - INTENSIVE [employer] AMBULANCE PARAMEDIC Work Phone: Start: 10-25-2021 Prothrombin time Andres [...] Blood count reticulo cyte automated Ellen Scherer PRODUCT ACCOUNTANT - INTENSIVE C[employer] AMBULANCE PARAMEDIC Work Phone: Start: 10-21-2021 C-reactive protein Loua nn B Niesha PRODUCT ACCOUNTANT - INTENSIVE [employer] AMBULANCE PARAMEDIC Work Phone: Start: 10-21-2021 Non-invas physiologi c std extremity art 2 level Shruthi Malik PRODUCT ACCOUNTANT - INTENS[employer]BULANCE PAR[employer]EDIC Work Phone: Start: 10-21-2021 Radex calcaneus mini mum 2 views Shruthi Malik PRODUCT ACCOUNTANT - INTENSIVE [employer] AMBULANCE PARAMEDIC Work Phone: Start: 10-21-2021 Dup-scan xtr veins [...] Comment: Speci men Type: BLOOD SPECIMENOrdering Facility: [facility] Address: [address] [place] [address] Performed By: #### T SCR ####[facility] BLOOD BANKIA [id number] [address] Start: 08-04-2021 Antibody screen Comment on above: Order Comment: Speci men Type: BLOOD SPECIMENOrdering Facility: [facility] Address: [address] [place] [address] Performed By: #### T SCR ####[facility] BLOOD BANKIA [id number] [address] Start: 08-01-2021 Antibody screen Comment on above: Order Comment: Speci men Type: BLOOD SPECIMENOrdering Facility: [facility] Address: [address] [place] [address] Performed By: #### T SCR ####[facility] BLOOD BANKCLIA [id number] [place] [address] [facility] Start: 06-07-2021 Antibody screen Comment on above: Order Comment: Speci men Type: BLOOD SPECIMEN Performed By: #### T SCR ####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 Start: 11-13-2019 Radiologic examinati on tibia & fibula 2 views 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 ([employer]) Debbie Work Phone: Hernia repair Monika melvin History of Cholecystotomy An yvette Staley History of Creation Of Subdural-Peritoneal CSF Shunt Monika Staley History of Interrupt ion Inferior Vena Cava Merna Filter Placement Monika Staley Urine culture Plan of Treatment Date Care Activity Detail Author Start: 09-22-2026 DTaP/Tdap/Td vaccine (2 - Td or Tdap) DTaP/Tdap/Td vaccine (2 - Td or Tdap) [facility] Start: 09-22-2026 DTaP/Tdap/Td vaccine (2 - Td) DTaP/Tdap/Td vaccine (2 - Td) [facility] Work Phone: Start: 09-22-2026 DTaP/Tdap/Td Vaccine s (2 - Td or Tdap) DTaP/Tdap/Td Vaccines (2 - Td or Tdap) [facility] Start: 09-02-2025 Lipid panel Lipid Panel [facility] Start: 03-02-2025 Registered Referred [facility] Start: 02-26-2025 Registered Referred [facility] Start: 02-23-2025 Registered Referred [facility] Start: 02-19-2025 Registered Referred [facility] Start: 02-16-2025 Registered Referred [facility]istered [facility] Start: 08-22-2024 DIABETES SCREEN DIABETES SCREEN [facility] Start: 12-04-2023 Lipid panel Lipids [facility] Start: 12-04-2023 Lipid screen Lipid screen [facility] Work Phone: Start: 09-13-2023 End: 09-13-2023 Patient encounter procedure 09/13/2023 11:30 AM EDT Office Visit [facility] [address] [place] [id number] Rebecca Buck MD [address] [place] [address] [facility] Start: 08-31-2023 End: 08-31-2023 Patient encounter procedure 08/31/2023 9:30 AM EDT Appointment [facility] [address] [place] [phone] Rebecca Buck MD [address] [place] [address] [facility] [address] [facility] Start: 08-13-2023 End: 08-12-2024 Basic metabolic 1998 panel - Serum or Plasma Basic metabolic panel Lab Routine Calculus of ureter Expected: 08/13/2023 (Approximate), Expires: 08/12/2024 [facility] Comment on above: Expected: 08/13/2023 (Approximate), Expires: 08/12/2024 Start: 08-13-2023 End: 08-12-2024 CT Abdomen WO contrast CT abdomen pelvis wo IV contrast Imaging Routine Left flank pain Calculus of ureter Expected: 08/13/2023, Expires: 08/12/2024 [facility] Comment on above: Expected: 08/13/2023 , Expires: 08/12/2024 Start: 08-13-2023 End: 02-12-2024 PSA, Monitoring ([facility]) PSA, Monitoring ([facility]) Lab Routine Disease of prostate Expected: 08/13/2023 (Approximate), Expires: 02/12/2024 [facility] Work Phone: Comment on above: Expected: 08/13/2023 (Approximate), Expires: 02/12/2024 Start: 08-13-2023 End: 08-13-2023 Patient encounter procedure 08/13/2023 10:00 AM EDT Office Visit [facility] [address] [place] [phone] Rebecca Buck MD [address] [place] [address] [facility] Start: 07-17-2023 Bacteria identified in Urine by Culture [facility] Start: 07-17-2023 [facility] Start: 07-16-2023 Measurement of substance [facility] Start: 05-07-2023 Medicare Advantage A nnual Wellness Visit Medicare Advantage Annual Wellness Visit [facility] Start: 03-02-2023 Creatinine measurement Creatinine Le carmela [facility] Start: 03-02-2023 Potassium measurement Potassium Leve l [facility] Start: 08-22-2022 Diabetes mellitus screening Diabetes Screening [facility] Start: 01-05-2022 Influenza vaccination S [facility] Start: 12-23-2021 EPV, Provider: Wing Ritter, Status: Pen, Time: 9:30 AM EPV, Provider: Wing Ritter, Status: Pen, Time: 9:30 AM WF-Rpvfaqlgpl-Hqu in Work Phone: Start: 12-05-2021 Influenza vaccination Flu vaccine (# 1) [facility] Start: 12-05-2021 Blood chemistry [facility] Work Phone: Start: 12-05-2021 Complete blood count [facility] Work Phone: Start: 12-05-2021 [facility] Work Phone: Start: 12-01-2021 [facility] Work Phone: Start: 08-05-2021 COVID-19 VACCINE (4 - Booster for Moderna series) COVID-19 VACCINE (4 - Booster for Moderna series) [facility] Start: 08-05-2021 COVID-19 Vaccine (4 - Booster for Pfizer series) COVID-19 Vaccine (4 - Booster for Pfizer series) [facility] Start: 06-01-2021 COVID-19 Vaccine (4 - Booster for Pfizer series) COVID-19 Vaccine (4 - Booster for Pfizer series) [facility] Start: 05-07-2021 ADVANCE DIRECTIVE DISCUSSION ADVANCE DIRECTIVE DISCUSSION [facility] Start: 08-11-2020 Screening for malign ant neoplasm of colon [facility] Start: 07-30-2020 Screening for malign ant neoplasm of colon [facility] Start: 01-20-2020 Echocardiography Echocardiogram [facility] [address] [place] Work Phone: Start: 01-06-2020 Influenza vaccination INFLUENZA (#1) [facility] Start: 12-04-2019 Annual Wellness Visi t (AWV) Annual Wellness Visit (AWV) [facility] Start: 12-04-2019 Creatinine monitoring Creatinine mon itoring [facility] Work Phone: Start: 12-04-2019 Hepatitis C screen Hepatitis C scree n [facility] Work Phone: Comment on above: Postponed from 05/06 (Patient Refused) Start: 12-04-2019 Potassium monitoring Potassium monit oring [facility] Work Phone: Start: 12-04-2019 Prostate specific an tigen measurement Prostate Specific Antigen (PSA) Screening or Monitoring [facility] Start: 12-04-2019 Shingles Vaccine (1 of 2) Day gles Vaccine (1 of 2) [facility] Work Phone: Comment on above: Postponed from 05/06 (Patient Refused) Start: 06-07-2019 Colon Cancer Screen FIT/FOBT [facility] Work Phone: Start: 08-14-2017 LIPID SCREEN LIPID SCREEN [facility] Start: 2017 ADVANCE DIRECTIVE DISCUSSION ADVANCE DIRECTIVE DISCUSSION [facility] Start: 2017 PNEUMOCOCCAL: 65+ (1 - PCV) PNEUMOCOCCAL: 65+ (1 - PCV) [facility] Start: 2017 PNEUMOVAX AGE 65 AND OVER WITH 5YR LOOKBACK (#1) PNEUMOVAX AGE 65 AND OVER WITH 5YR LOOKBACK (#1) [facility] Start: 04-14-2016 DIABETES SCREEN DIABETES SCREEN [facility] Start: 2012 RSV Immunization age d 60 or older (1 - 1-dose 60+ series) RSV Immunization aged 60 or older (1 - 1-dose 60+ series) [facility] Start: 2007 PROSTATE CANCER SCRE ENING DISCUSSION PROSTATE CANCER SCREENING DISCUSSION [facility] Start: 2002 Shingles vaccine (1 of 2) Day gles vaccine (1 of 2) [facility] Start: 2002 SHINGRIX VACCINE (1 of 2) DAY GRIX VACCINE (1 of 2) [facility] Start: 2002 Tuberculosis screening COLOREC MONIQUE CANCER SCREENING,SEE MODIFIER [facility] Start: 2002 Zoster Vaccines (1 of 2) Zoste r Vaccines (1 of 2) [facility] Start: 1997 COLOGUARD (FIT-DNA) COLOGUARD (FIT-D NA) [facility] Start: 1997 Colonoscopy COLONOSCOPY [facility] Start: 1997 COLORECTAL CANCER SCREENING COLORECTAL CANCER SCREENING [facility] Start: [address] COLONOGRAPHY [facility] Start: 1997 FECAL OCCULT BLOOD FECAL OCCULT BLOO D [facility] Start: 1997 Screening for malign ant neoplasm of colon [facility] Start: 1997 SIGMOIDOSCOPY SIGMOIDOSCOPY [facility] Start: 1987 Diabetes screen Diabetes screen [facility] Start: 1971 Urine microalbumin profile DTAP,TDAP,TD (1 - Tdap) [facility] Start: 1970 ANNUAL 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 VISIT ANNUAL PCP TEAM CHRONIC DISEASE VISIT [facility] Start: 1970 BP CONTROLLED (<130/80) BP CONTROLLE D (<130/80) [facility] Start: 1970 Diabetes mellitus screening Diabetes Screening [facility] Start: 1970 HEPATITIS C SCREENING HEPATITIS C SC PHIL [facility] Start: 1970 Hepatitis C screening S [facility] Start: 1964 Adult depression screening assessment DEPRESSION SCREENING [facility] Start: 1964 Depression Screen Depression Screen [facility] Start: 1962 Diabetic foot examination Diabetes: Foot Exam [facility] Start: 1962 Glaucoma screening Diabetes: R etinopathy Screening [facility] Start: 1962 Preventive dental service Diabetes: Dental Exam [facility] Start: 1952 Echocardiography Echocardiogram [facility] Start: 1952 Hemoglobin A1c measurement Diabetes: Hemoglobin A1C [facility] Start: 1952 Lipid panel Lipid Panel [facility] Start: 1952 Screening for malign ant neoplasm of colon [facility] Bacteria identified in Urine by Culture Urine Culture [facility] Work Phone: End: 03-02-2022 CBC W Auto Differential panel - Blood CBC with Auto Differential Lab Routine One Time for 1 Occurrences starting 03/02/2022 until 03/02/2022 [facility] Work Phone: Comment on above: One Time for 1 Occur rences starting 03/02/2022 until 03/02/2022 End: 03-02-2022 Comprehensive metabolic 2000 panel - Serum or Plasma Comprehensive Metabolic Panel Lab STAT One Time for 1 Occurrences starting 03/02/2022 until 03/02/2022 [employer] Work Phone: Comment on above: One Time for 1 Occur rences starting 03/02/2022 until 03/02/2022 End: 09-06-2023 CT Abdomen WO contrast [facility] Work Phone: Comment on above: Once for 1 Occurrenc es starting 09/06/2023 until 09/06/2023 End: 12-22-2021 Culture, Blood 2 Culture, Blood 2 Microbiology STAT One Time for 1 Occurrences starting 12/22/2021 until 12/22/2021 [employer] Work Phone: Comment on above: One Time for 1 Occur rences starting 12/22/2021 until 12/22/2021 End: 12-22-2021 Microscopic examination of blood, culture Culture, Blood Microbiology STAT One Time for 1 Occurrences starting 12/22/2021 until 12/22/2021 [employer] Work Phone: Comment on above: One Time for 1 Occur rences starting 12/22/2021 until 12/22/2021 Microscopic examinat ion of blood, culture Culture, Blood Microbiology STAT 12/22/2021 12:22 AM EDT [email or web address] Work Phone: Oxygen therapy [[facility]] Initiate Oxygen Therapy Protocol Respiratory Care Routine As Needed until discontinued starting 10/21/2021 [facility] Comment on above: As Needed until disc ontinued starting 10/21/2021 Protime-INR Protime-INR Lab Routine Daily until discontinued starting 10/23/2021, 7 completed [facility] Work Phone: Comment on above: Daily until disconti nued starting 10/23/2021, 7 completed End: 03-02-2022 Protime-INR Protime-INR Lab Routine One Time for 1 Occurrences starting 03/02/2022 until 03/02/2022 [facility] Work Phone: Comment on above: One Time for 1 Occur rences starting 03/02/2022 until 03/02/2022 Spirometry panel Incentive stef metry Respiratory Care Routine Daily until discontinued starting 10/21/2021 [facility] Work Phone: Comment on above: Daily until disconti nued starting 10/21/2021 End: 10-21-2021 Wound ostomy eval Wound ostomy eval Wound Ostomy Routine One Time for 1 Occurrences starting 10/21/2021 until 10/21/2021 [facility] Work Phone: Comment on above: One Time for 1 Occur rences starting 10/21/2021 until 10/21/2021 [facility] NEGATED: Highlighted row has been ruled out! Planned Goals not documented XV-Bwjdbghfrb-Gnt ma Work Phone: Immunizations Immunization Date Immunization Notes Care Provider Christopher chu 03-04-2019 influenza, high dose seasonal, preservative-free [facility] 12-03-2018 pneumococcal polysac charide vaccine, 23 valent Sarika Salas [facility] Work Phone: 01-25-2018 influenza, high dose seasonal, preservative-free [facility] Salas [facility] 02-14-2017 influenza, injectabl e, quadrivalent, contains preservative [facility] Salas [facility] 09-22-2016 pneumococcal conjuga te vaccine, 13 valent Sarika Salas [facility] Work Phone: 09-22-2016 tetanus toxoid, redu patrice diphtheria toxoid, and acellular pertussis vaccine, adsorbed Sarika ARMENDARIZ Work Phone: 02-24-2016 influenza, injectabl e, quadrivalent, contains preservative Sarika ARMENDARIZ 02-08-2015 influenza virus vacc ine, unspecified formulation Sarika ERAZOA Work Phone: 02-04-2013 pneumococcal Conjuga te, unspecified formulation Sarika ARMENDARIZ Work Phone: Payers Date Payer Category Payer Unknown [id number] 03-19-2024 Self-pay 01-05-2022 Medicaid 01-05-2022 Medicare 01-05-2022 Medicare [id number] 10-05-2021 Medicaid [id number] 06-07-2021 Medicare UHC MEDICARE UHC DUAL COMPLETE HMO SNP [id number] 06/07/2021-Present [phone] [address] [place] [address] Medicare [id number] 06-07-2021 Medicare UHC MEDICARE [employer] DUAL COMPLETE [id number] 06/07/2021-Present [phone] [address] [place] [address] [id number]. [id number] 11-05-2019 Medicare UHC AARP MEDICAR E [facility] AARP MEDICARE HMO [id number] 11/05/2019-Present O [id number]. 2.7.3.785812.315 07-06-2015 Medicare UHC MEDICARE UHC MEDICARE COMPLETE xxxxxxxxx 2015-Present xxxxxxxxx [id number]. 2.7.3.079186.315 1952 Unknown [id number] 2.16.840.1.923643.3.579. 2.668 1952 Unknown [id number] 2.840.1.849376.3.579. 2.668 1952 Unknown [id number] 2..840.1.561030.3.579. 2.[birth year]-06-1950 Unknown [id number] .840.1.607062.3.579. 2.05-06-1950 Unknown [id number] 2.840.1.903887.3.579. 2.05-06-1950 Unknown [id number] 2.840.1.907997.3.579. 2.8 1952 Unknown [id number] 2.840.1.267384.3.579. 2.8 Private Health Insurance Unknown Unknown [id number] 2.840.1.428950.3.579. 2.462 Unknown [id number] 2.840.1.637307.3.579. 2.462 Unknown [id number] 2.840.1.121404.3.579. 2.462 Unknown [id number] 2.840.1.053628.3.579. 2.462 Unknown [id number] 2.840.1.531390.3.579. 2.462 Unknown [id number] .840.1.654886.3.579. 2.462 Unknown [id number] 2.840.1.580385.3.579. 2.462 Unknown [id number] 2.840.1.082153.3.579. 2.462 Unknown [id number] 2.840.1.414409.3.579. 2.462 Unknown [id number] 2.840.1.593487.3.579. 2.462 Unknown [id number] 2.16.840.1.142896.3.579. 2.462 Unknown [id number] 2.16.840.1.125877.3.579. 2.462 Unknown [id number] 2.16.840.1.833126.3.579. 2.462 Unknown [id number] 2.16.840.1.165555.3.579. 2.462 Unknown [id number] 2.16.840.1.042954.3.579. 2.462 Unknown [id number] 2.16.840.1.297319.3.579. 2.462 Unknown [id number] 2.840.1.360428.3.579. 2.462 Unknown [id number] 2..840.1.951778.3.579. 2.462 Unknown [id number] 2.840.1.376039.3.579. 2.462 Unknown [id number] 2.840.1.548809.3.579. 2.462 Unknown [id number] 2.840.1.129030.3.579. 2.462 Unknown [id number] 2.16.840.1.609134.3.579. 2.462 Unknown [id number] 2.16.840.1.038715.3.579. 2.462 Unknown [id number] 2.840.1.991851.3.579. 2.462 Unknown [id number] 2..840.1.784327.3.579. 2.462 Unknown [id number] 2.16.840.1.324073.3.579. 2.462 Unknown [id number] 2.16.840.1.146449.3.579. 2.462 Unknown [id number] 2.16.840.1.131629.3.579. 2.462 Unknown [id number] 2.840.1.737386.3.579. 2.462 Unknown [id number] 2.16.840.1.466629.3.579. 2.462 Unknown [id number] 2.16.840.1.574543.3.579. 2.462 Unknown [id number] 2.16.840.1.284617.3.579. 2.462 Unknown [id number] 2.16840.1.500572.3.579. 2.462 Unknown [id number] 2.16.840.1.590839.3.579. 2.462 Unknown [id number] 2.840.1.308148.3.579. 2.462 Unknown [id number] 2.840.1.429675.3.579. 2.462 Unknown [id number] 2.840.1.655392.3.579. 2.462 Unknown [id number] 2.840.1.211916.3.579. 2.462 Unknown [id number] 2.840.1.320260.3.579. 2.462 Unknown [id number] 2.840.1.773885.3.579. 2.462 Unknown [id number] 2.840.1.535978.3.579. 2.462 Unknown [id number] 2.840.1.424797.3.579. 2.462 Unknown [id number] 2.840.1.456227.3.579. 2.462 Unknown [id number] 2.840.1.236437.3.579. 2.462 Unknown [id number] 2.840.1.933668.3.579. 2.462 Unknown [id number] 2.840.1.379045.3.579. 2.462 Unknown [id number] 2.16840.1.532641.3.579. 2.462 Unknown [id number] 2.16.840.1.743995.3.579. 2.462 Unknown [id number] 2.16.840.1.588427.3.579. 2.462 Unknown [id number] 2.16.840.1.726690.3.579. 2.462 Unknown [id number] 2.16.840.1.943304.3.579. 2.462 Unknown [id number] 2.16.840.1.755643.3.579. 2.462 Unknown [id number] 2.16.840.1.695634.3.579. 2.462 Unknown [id number] 2..840.1.929854.3.579. 2.462 Unknown [id number] 2..840.1.909723.3.579. 2.462 Unknown [id number] 2.840.1.651582.3.579. 2.462 Unknown [id number] 2..840.1.972655.3.579. 2.462 Unknown [id number] 2..840.1.967480.3.579. 2.462 Unknown [id number] 2..840.1.966094.3.579. 2.462 Unknown [id number] 2..840.1.972127.3.579. 2.462 Unknown [id number] 2.840.1.064303.3.579. 2.462 Unknown [id number] 2..840.1.788917.3.579. 2.462 Unknown [id number] 2..840.1.148654.3.579. 2.462 Unknown [id number] 2.16.840.1.490868.3.579. 2.462 Unknown [id number] 2.16.840.1.001694.3.579. 2.462 Unknown [id number] 2..840.1.499883.3.579. 2.462 Unknown [id number] 2.16.840.1.182936.3.579. 2.462 Unknown [id number] 2.16.840.1.097465.3.579. 2.462 Unknown [id number] 2.16.840.1.591425.3.579. 2.462 Unknown [id number] 2.16.840.1.365842.3.579. 2.462 Unknown [id number] 2.16.840.1.431477.3.579. 2.462 Unknown [id number] 2.16.840.1.914942.3.579. 2.462 Unknown 16599144 2.16.840.1.599371.3.579. 2.462 Unknown [id number] 2.16.840.1.470665.3.579. 2.462 Unknown 78273919 2.16840.1.707796.3.579. 2.462 Unknown [id number] 2.16840.1.342197.3.579. 2.462 Unknown 22249660 2.16.840.1.214799.3.579. 2.462 Unknown [id number] 2.16.840.1.755910.3.579. 2.462 Unknown [id number] 2.16.840.1.601268.3.579. 2.462 Unknown [id number] 2.16.840.1.624680.3.579. 2.462 Unknown [id number] 2.16.840.1.133663.3.579. 2.462 Unknown [id number] 2.16.840.1.327185.3.579. 2.462 Unknown 19159937 2.16.840.1.355729.3.579. 2.462 Unknown [id number] 2.16.840.1.195671.3.579. 2.462 Unknown [id number] 2.16.840.1.979439.3.579. 2.462 Unknown [id number] 2.16.840.1.176059.3.579. 2.462 Unknown [id number] 2.16.840.1.517420.3.579. 2.462 Unknown [id number] 2.16.840.1.929956.3.579. 2.462 Unknown [id number] 2.16.840.1.711971.3.579. 2.462 Unknown [id number] 2.16.840.1.870017.3.579. 2.462 Unknown [id number] 2.16.840.1.039114.3.579. 2.462 Unknown [id number] 2.16.840.1.245726.3.579. 2.462 Unknown 13683422 2.16.840.1.798191.3.579. 2.462 Unknown [id number] 2.16.840.1.045405.3.579. 2.462 Unknown [id number] 2.16.840.1.946838.3.579. 2.462 Unknown [id number] 2.16.840.1.904446.3.579. 2.462 Unknown 37120029 2.16.840.1.241394.3.579. 2.462 Unknown [id number] 2.16.840.1.809204.3.579. 2.462 Unknown [id number] 2.16.840.1.814582.3.579. 2.462 Unknown [id number] 2.16.840.1.835436.3.579. 2.462 Unknown [id number] 2.16.840.1.367157.3.579. 2.462 Unknown [id number] 2.16.840.1.338493.3.579. 2.462 Unknown [id number] 2.16.840.1.306815.3.579. 2.462 Unknown [id number] 2.16.840.1.474651.3.579. 2.462 Unknown [id number] 2.16.840.1.656430.3.579. 2.462 Unknown [id number] 2.16.840.1.607343.3.579. 2.462 Unknown [id number] 2.16.840.1.296330.3.579. 2.462 Unknown 29157939 2.16.840.1.178394.3.579. 2.462 Unknown [id number] 2.16.840.1.519447.3.579. 2.462 Unknown [id number] 2.16.840.1.279587.3.579. 2.462 Unknown [id number] 2.16.840.1.156883.3.579. 2.462 Unknown [id number] 2.16.840.1.764284.3.579. 2.462 Unknown [id number] 2.16.840.1.766278.3.579. 2.462 Unknown [id number] 2.16.840.1.247551.3.579. 2.462 Unknown [id number] 2.16.840.1.704095.3.579. 2.462 Social History Date Type Detail Facility Start: 05-23-2018 End: 05-19-2019 Tobacco smoking status INIS Former smoker [facility] Work Phone: History of tobacco use Cigar Smoker [facility] Work Phone: Start: 05-19-2019 End: 08-13-2023 Cigarettes smoked current (pack per day) - Reported [facility] Work Phone: Start: 05-19-2019 End: 08-13-2023 Alcohol intake Current non-drinker of alcohol (finding) [facility] Work Phone: Start: 12-03-2018 History SDOH Physica l Activity DPW 7 [facility] Work Phone: Start: 12-03-2018 History SDOH Physica l Activity MPS 9 [facility] Work Phone: Start: 12-03-2018 End: 10-31-2021 History SDOH Stress 1 [facility] Work Phone: Start: 12-03-2018 History SDOH Financial 5 [facility] Work Phone: Start: 12-03-2018 History [facility] rt [facility] 2 [facility]: Start: 1950 Sex Assigned At Not on file [facility] Work Phone: Start: 08-13-2012 End: 11-13-2019 Tobacco smoking status NHIS Never smoker [facility] Start: 05-23-2018 End: 11-13-2019 Tobacco use and exposure Never used [facility] Start: 11-13-2019 History SDOH Alcohol Std Drinks 98 [facility] Start: 10-11-2021 End: 02-15-2022 Exposure to SARS-CoV-2 (event) Not sure [facility] Start: 1950 Sex Assigned At Male W [facility] History of tobacco use Current smoker [facility] Work Phone: History of tobacco use Cigarette Smoker [facility] Work Phone: Start: 10-31-2021 End: 08-13-2023 Tobacco use panel [facility] Tobacco smoking stat us INIS Unknown if ever smoked [facility] Work Phone: Start: 07-11-2024 End: 08-21-2024 Sex Male (finding) [facility] NEGATED: Highlighted row - - [facility] Work Phone: Medical Equipment Procedure Code Equipment Code Equipment Origin al Text Equipment Identifier Dates Kit Bactiseal Woodard maria guadalupe Silicone Barium Catheter Shunt Sterile - [id number] Start: 06-08-2021 Catheter Bactise al 14cm External Drainage Csf Sterile Latex Free - [id number] Start: 08-05-2021 Valve Certas Shannon nt Inline - [id number] Start: 06-08-2021 Valve Certas Shannon nt Inline - [id number] Start: 08-05-2021 Cass snow [facility] - [id number] Start: 08-09-2021 Goals Date Patient Goal [...] health issues are not documented Disease [facility] Physician [facility] Work Phone: Mental Status Date Assessment Result Facility NEGATED: Highlighted row Cognitive function [Interpretation] Cognitive status health issues are not documented Disease [facility] Work Phone: Clinical Notes [...] adult (CMS/HCC) (HCC) Kidney stone Neuropathy [employer] (ventriculoperitoneal) shunt status Past Surgical History: Procedure [...] 09/13/23 12:05 PM documented in this encounter [facility] 08-31-2023 Note S: Shanthi from [facility] spoke with [facility] nurse regarding voiding trial procedure. [...] Protocols used: Information Only Call - No [facility]23 Telephone encounter Note S: Shanthi from [facility] spoke with [facility] nurse regarding voiding trial procedure. [...] Protocols used: Information Only Call - No Fikgjg-PFCWO-OE [facility] 08-31-2023 Miscellaneous Notes S: Shanthi from [place] [place] spoke with [facility] nurse regarding voiding trial [...] Protocols used: Information Only Call - No Xonfrz-LHDYQ-ZL documented in this encounter [facility] 08-29-2023 Telephone encounter Note Chidi on greg vm to advise them to call the number for the crm campaign manager to get clarification, and to call back with further questions [facility] 08-29-2023 Miscellaneous Notes Chidi on greg vm to advise them to call the number for the crm campaign manager to get clarification, and to call back with further questions Yes, they will need to call the number given to them. Please advise Name of caller: Shanthi Contact phone number: [phone] Relationship to Patient: patient Provider: MD Quinn Practice: [facility] Chief Complaint/Reason for [...] to reach out to call Maury Cedeño Voice Coach at [facility] [phone] to get clarifications. CAC did reach back out to [facility] and advised and provider Maury's #. Please advise Best time of day caller can be reached: Any Patient advised that office/PCP has 24-48 business hours to return their call: N/A documented in this encounter [facility] 08-27-2023 Telephone encounter Note Yes, they will need to call the number given to them. [facility] 08-27-2023 Telephone encounter Note Please advise [facility] 08-21-2023 Telephone encounter Note Name of caller: Shanthi Contact phone number: [phone] Relationship to Patient: patient Provider: MD Quinn Practice: [facility] Chief Complaint/Reason for [...] to reach out to call Maury Cedeño Voice Coach at [facility] [phone] to get clarifications. CAC did reach back out to [facility] and advised and provider Maury's #. Please advise Best time of day caller can be reached: Any Patient advised that office/PCP has 24-48 business hours to return their call: N/A [facility] 08-13-2023 History of Present illness [...] adult (CMS/HCC) (HCC) Kidney stone Neuropathy [employer] (ventriculoperitoneal) shunt status Past Surgical History: Past [...] 08/13/23 10:45 AM documented in this encounter [facility] 06-25-2023 Telephone encounter Note [facility] called in stating appt scheduled 07/10/23 [place] has to be made further out, pt being transported by cot. Changed appt to 08/13/23 per [facility] only avail time for transport, first avail with DR Buck at 10:00 AM. [facility] 06-25-[address] [facility] appt scheduled 07/10/23 [place] has to be made further out, pt being transported by cot. Changed appt to 08/13/23 per [facility] only avail time for transport, first avail with DR Buck at 10:00 AM. documented in this encounter [facility] 12-22-2021 Hospital Discharge instructions SANIA Lou - 12/22/2021 2:32 AM EDT Please take medication as prescribed Please follow up with your Physicians as instructed in this discharge paperwork Thank you for choosing [facility] I appreciate your patience Please return to the emergency department if your symptoms worsen, or new symptoms develop as discussed documented in this encounter [facility] Work Phone: 10-29-2021 Note Hospitalist Discharg e [...] and previous indwelling tubing history of [employer] shunt ? #?Bilateral lower extremity wounds-wound care [...] These medications were sent to [facility] [address] [place] [address] [address] [facility] - P [phone] - F [phone] [facility] [address] ? levETIRAcetam 750 MG tablet ? warfarin 6 MG tablet Recommended Follow-up: No follow-up provider specified. Complexity of Follow up: [] Moderate Complexity: follow up within 7-14 calendar days (93696) [x] Severe Complexity: follow up within 7 calendar days (15619) Follow up Testing, Pending results or Referrals [...] Increased fatigue or (more content not included)... [facility] 10-29-2021 Hospital Discharge instructions Fabi Subramanian RN - 10/29/2021 12:03 PM EDT Continuity of Care Form Patient Name: Andrew Sifuentes : 1950 Admit date: 10/21/2021 Discharge date: 10/29/2021 Code Status Order: Full Code Advance Directives: Admitting Physician: May Cash MD PCP: MONIKA STALEY MD Discharging Nurse: Fabi [facility] Hospital Unit/Room#: 146/1461 Discharging Unit Emergency Contact: Extended Emergency Contact Information Primary Emergency Contact: NelsonTriny Address: [address] [place] [address] [address] [place], [place] [id number] [place] [address] Relation: Brother/Sister Secondary Emergency Contact: Melissa Sifuentes Mobile Relation: Child Preferred language: Peruvian Past Surgical History: Past Surgical History: Procedure Laterality Date BRAIN SURGERY CHOLECYSTECTOMY COLONOSCOPY HERNIA REPAIR Immunization History: Immunization History Administered Date(s) Administered Influenza Virus Vaccine 02/08/2015 Influenza, High Dose (Fluzone 65 yrs and older) 01/25/2018, 03/04/2019 Influenza, Quadv, IM, (6 mo and older Fluzone, Flulaval, Fluarix and 3 yrs and older Afluria) 02/24/2016, 02/14/2017 Pneumococcal Conjugate 13-valent (Tbodcgl23) 09/22/2016 Pneumococcal Conjugate Vaccine 02/04/2013 Pneumococcal Polysaccharide (Rtgvatdej39) 12/03/2018 Tdap (Boostrix, Adacel) 09/22/2016 Active Problems: Patient Active Problem List Diagnosis Code Flank pain, acute R10.9 Night muscle spasms M62.838 Chronic fatigue R53.82 Hydrocephalus ([facility]) G91.9 Neuropathy G62.9 Erectile dysfunction N52.9 Fluid retention in tissues R60.9 Hyperlipidemia E78.5 Morbidly obese ([facility]) E66.01 Leg wound, left S81.802A DVT, lower extremity, recurrent, unspecified laterality ([facility]) I82.409 Moderate malnutrition ([facility]) E44.0 History of seizures Z87.898 Isolation/Infection: [...] Dependent Dressing Dependent Toileting Dependent Feeding Dependent Computer Terminal Operator Dependent Med Delivery whole in pudding Wound [...] Q4H prn SOB Oxygen Therapy: {Therapy; copd oxygen:00950} Ventilator: { CC Vent List:[id number]} Rehab Therapies: {THERAPEUTIC INTERVENTION:2599852617} Weight Bearing Status/Restrictions: Weight Bearing - Patient was bedbound in hospital Other Medical Equipment (for information only, NOT a DME order): wheelchair, hospital bed, and Boaz Other Treatments: Patient's personal belongings (please select all that are sent with patient): {[facility] DME Belongings:[id number]} RN SIGNATURE: CASE MANAGEMENT/SOCIAL WORK SECTION Inpatient Status Date: Readmission Risk Assessment Score: Readmission Risk Risk of Unplanned Readmission: 11 Discharging to Facility/ Agency Name: Address: Phone: Fax: Dialysis Facility (if applicable) Name: Address: Dialysis Schedule: Phone: Fax: [employer] signature: {Esignature:[id number]} PHYSICIAN SECTION Prognosis: Fair Condition at Discharge: Stable Rehab Potential (if transferring to Rehab): Fair Recommended Labs or Other Treatments After Discharge: Coumadin based on INR target range 2-3, Coumadin 6 mg on 10/30 and 10/31, recheck INR 11/01 and notify physician, ideally should be on 6 mg alt with 7 mg daily, PT/OT, follow-up with neurologist in 1 month, continue [facility] Physician Certification: I certify the above information and transfer of Andrew Sifuentes is necessary for the continuing treatment of the diagnosis listed and that he requires Group Home Facility for greater than 30 days. Update Admission H&P: No change in H&P PHYSICIAN SIGNATURE: documented in this encounter [email or web address] Work Phone: 10-29-2021 History of Present illness Narrative [facility] Anticoagulation Management Service ([facility]) Inpatient Warfarin Consult HPI: Andrew Sifuentes is a 71 y.o. 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 Pt was [...] PharmD IRVIN Consult Service is available daily [phone]. Please search for covering pharmacist name via [employer] or Groups --> Pharmacy --> Anti-Coagulation Consult Pharmacist (on 3rd page). If no response via [employer], please page [phone]. Patient seen and chart reviewed. Afebrile. Adequate oxygenation on room air. Baseline mentation. Exam stable X 5 systems. Hgb 11.0 WBC 10.0 K Platelets 344 K Creatinine 0.71 GFR > 90 cc/min. NSE 20.8 with hemolysis. PT 30.8 INR 3.1 Conversion to Warfarin has been completed. APS w/u pending. Discussed with patient's staffing account manager. Will continue to monitor. Total visit time > 35 minutes. Neurology Attending Progress Note SUBJECTIVE: No issues overnight. Care discussed with nursing staff/patient's medical team MRI brain reported nothing acute. Assessment and Plan: 71 yr M with H obstructive hydrocephalus s/p SU[employer] shunt in 1987, needing multiple revisions and [...] limits and both old and new [employer] shunt tubing noted. At present patient is awake, follows commands, was able to tell his name, and that he was in hospital but not oriented to time. Per documentation patient had NCSE in May 2021, was on Vimpat, but it was discontinued as there was no evidence of recurrent seizures in july 2021 by Neurology at [facility], per daughter patient was on Dilantin for 31 yrs. Per daughter patient had seizures in the past and also felt he had staring episodes 10/26/2021 morning. Per daughter patient has been essentially bed bound [place] since May 2021 but prior to that was independent Impressions: H/O hydrocephalus H/O seizure, H/O stroke Acute DVT H/O PE Plan: -MRI brain w/o contrast nothing acute -CT head done during this admission reported no hydrocephalus, ventricles within normal limits and both old and new [employer] shunt tubing noted -EEG mild to moderate slow, no seizures reported -Labs reviewed -Hydrocephalus management per Neurosurgery. At present patient does not have hydrocephalus on CT head done this admission. No Neurosurgery services available as inpatient in [facility]. Patient can follow up with Neurosurgery as outpatient and if ends up needing inpatient neurosurgery requirement then may need to be transferred to [facility]. -No clear clinical signs of ventriculitis. Defer evaluation to primary medical team/ID as deemed necessary. -Discussed with daughter in detail on . She was concerned that patient has had h/o seizures, and he has been taken off seizure medication, per note documentation patient had NCSE in May 2021 when he was admitted to [facility]. Per daughter she would want patient [...] is no in house Neurology coverage at [facility] over the weekend, primary hospitalist team to contact epic beacon analyst Neurology at [facility] for any weekend neurological issues related to the patient and if need to discuss any neurological test results/findings. Other deal in house Neurology coverage will be available from Sunday at [facility] and please call epic beacon analyst Neurology back on Sunday if need further assistance. This note has been generated using [employer] dictation software. It may contain incorrect words, punctuation's and spellings that were not noted in the review of the note prior to signing. This note has been generated using [employer] dictation software. It may contain incorrect words, [...] eGFR >90.0 >60 mL/min EGFR IF NonAfrican Salvadorean >90.0 >60 mL/min Calcium 9.1 8.4 - [...] 26 AST 24 BILITOT 0.4 LABALBU 3.7 @BRIEFLAB([facility]) ABGs: )No results for input(s): [...] Radiology ACCESSION EXAM DATE/TIME PROCEDURE ORDERING PROVIDER [id number] 10/21/2021 15:30 EDT CR Calcaneus 2+ Views [id number] -HELENA, SHRUTHI Left CPT code 53218 Reason For Exam (CR Calcaneus 2+ Views [...] Result Date: 10/26/2021 [id number] Computed Tomography ACCESSION EXAM DATE/TIME PROCEDURE ORDERING PROVIDER [id number] 10/26/2021 11:[address] Head or Brain w/o JUNIE PINEDA ALLISON Contrast CPT code 27682 Reason For Exam (CT Head or Brain w/o Contrast) hydrocephalus. thank you Report CLINICAL INFORMATION: Hydrocephalus. Shunt. 3 mm axial cuts through the head are obtained without IV contrast. The examination is compared to a previous study dated 06/29/2014. FINDINGS: Old [employer] shunt tubing is noted bilaterally. The new [...] clear. IMPRESSION: 1. Old and new [employer] shunt tubing. 2. No hydrocephalus. 3. Atrophy [...] Imaging ACCESSION EXAM DATE/TIME PROCEDURE ORDERING PROVIDER [id number] 10/23/2021 11:08 EDT MRI Abdomen w/o Contrast WING SRIVASTAVA CPT code 77786 Reason For Exam (MRI Abdomen w/o Contrast) [...] Result Date: 10/21/2021 Patient Name: [facility]ES [facility] [id number] Nuclear Medicine ACCESSION EXAM DATE/TIME PROCEDURE ORDERING PROVIDER [id number] 10/21/2021 07:55 EDT NM Pulmonary Perfusion [id number] MAY BOGGS w/ Vent Aerosol CPT code 35275 A9567 Reason For Exam (NM Pulmonary Perfusion [...] Brachial Indices Extremity Bilateral Result Date: 10/22/2021 [facility] --- Ankle Brachial Index Report Patient DO GurpreetB: 1950 Study 10/21/2021 Name: Andrew Gonzalez (71yrs) Date: Age: 71 Account: [id number] Gender: M Loc: 444W BP: Ordering Physician: Shruthi Malik College President: Rody Cross RDMS, RVT Interpreting Physician: Carina Call --- Location: [facility] --- Indications: Foot wounds. Originally ordered as a full PVR. Ordering FILTRATION PLANT OPERATOR had to modify the order to [...] supine position. Images were obtained using a [employer]on[employer] vascular ultrasound machine. --- Arterial pressure indices: [...] EXTREMITY BILATERAL VENOUS DUPLEX Result Date: 10/21/2021 [facility] --- Lower Extremity Venous Duplex Report Patient DO GurpreetB: 1950 Study 10/21/2021 Name: Andrew Gonzalez (71yrs) Date: Age: 71 Account: [id number] Gender: M Loc: 444 BP: Ordering Physician: May Cash College President: Rody Cross RDMS, T Interpreting Physician: Carina Call --- Location: [facility] --- Indications: Bilateral lower leg edema. --- [...] supine position. Images were obtained using a [employer] vascular ultrasound machine. --- Venous flow and [...] Radiology ACCESSION EXAM DATE/TIME PROCEDURE ORDERING PROVIDER [id number] 10/21/2021 08:16 EDT CR Chest 1 View Frontal [id number] MAY BOGGS CPT code 59907 Reason For Exam (CR Chest 1 View [...] Tomography ACCESSION EXAM DATE/TIME PROCEDURE ORDERING PROVIDER [id number] 10/22/2021 13:[address] Abdomen/Pelvis (No SRIVASTAVA, WING PO, No IV) CPT code 63162 Reason For Exam (CT Abdomen/Pelvis (No PO, [...] Result Date: 10/27/2021 Patient Name: [facility]W [facility]ENTES [facility] [id number] Magnetic Resonance Imaging ACCESSION EXAM DATE/TIME PROCEDURE ORDERING PROVIDER [id number] 10/27/2021 13:14 EDT MRI Brain w/o Contrast UNASSIGNED, UNASSIGNED CPT code 72531 Reason For Exam (MRI Brain w/o Contrast) stroke Patient has SUPER[employer] shunt in place, please follow Radiology protocol [...] included. Hospitalist Progress Note 10/28/2021 11:37 AM [phone]: Please page me @ [phone] for patient care issues. [phone]: Please page smoke eater for any issues@ night Subjective: Admit Date: [...] and previous indwelling tubing history of SU[employer] shunt # Bilateral lower extremity wounds-wound care [...] Services This report was created using the [employer] Speaking voice-activated system. Despite prompt dictation and careful editorial review, there may be subtle contextual errors in this report, due to misrecognition of the spoken word. Speech Language Pathology Facility/Department: [facility] Dysphagia Treatment Note NAME: [...] and gloves were worn throughout this session. [facility] Anticoagulation Management Service ([facility]) Inpatient Warfarin Consult HPI: Andrew Sifuentes is a 71 y.o. male admitted on 10/21/2021 for recurrent DVT. 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 Pt was [...] drug interactions and adjust dose accordingly. 3. [facility] will manage while inpatient and sign off at discharge. Patient resides in a SNF. 4. Will provide warfarin education including [facility] warfarin booklet, if appropriate. Brionna Le, PharmD candidate Josie Gupta RPh, PharmD [facility] Consult Service is available daily [phone]. Please search for covering pharmacist name via [employer] or Groups --> Pharmacy --> Anti-Coagulation Consult Pharmacist (on 3rd page). If no response via [employer], please page [phone]. Follow up b/l foot wounds. No new [...] M with PMH obstructive hydrocephalus s/p SU[employer] shunt in 1987, needing multiple revisions and [...] limits and both old and new [employer] shunt tubing noted. At present patient is awake, follows commands, was able to tell his name, and that he was in hospital but not oriented to time. Per documentation patient had NCSE in May 2021, was on Vimpat, but it was discontinued as there was no evidence of recurrent seizures in july 2021 by Neurology at [facility], per daughter patient was on Dilantin for 31 yrs. Per daughter patient had seizures in the past and also felt he had staring episodes 10/26/2021 morning. Per daughter patient [place] since [place] 2021 but prior to that was independent Impressions: H/O hydrocephalus H/O seizure, H/O stroke Acute DVT H/O PE Plan: -MRI brain w/o contrast. Per daughter she would like MRI brain done to evaluate for strokes -CT head done during this admission today reported no hydrocephalus, ventricles within normal limits and both old and new [employer] shunt tubing noted -EEG mild to moderate slow, no seizures reported -Labs reviewed -Hydrocephalus management per Neurosurgery. At present patient does not have hydrocephalus on CT head done this admission. No Neurosurgery services available as inpatient in [facility]. Patient can follow up with Neurosurgery as outpatient and if ends up needing inpatient neurosurgery requirement then may need to be transferred to [facility]. -No clear clinical signs of ventriculitis. Defer evaluation to primary medical team/ID as deemed necessary. -Discussed with daughter in detail on . She was concerned that patient has had h/o seizures, and he has been taken off seizure medication, per note documentation patient had NCSE in May 2021 when he was admitted to [facility]. Per daughter she would want patient [...] interim. This note has been generated using [employer] dictation software. It may contain incorrect words, punctuation's and spellings that were not noted in the review of the note prior to signing. This note has been generated using [employer] dictation software. It may contain incorrect words, [...] LABALBU, AMYLASE, LIPASE in the last 72 hours.@BRIEFLAB([facility]) ABGs: )No results for input(s): [...] Radiology ACCESSION EXAM DATE/TIME PROCEDURE ORDERING PROVIDER [id number] 10/21/2021 15:30 EDT CR Calcaneus 2+ Views [id number] -SHRUTHI MALIK CPT code 20184 Reason For Exam (CR Calcaneus 2+ Views [...] Tomography ACCESSION EXAM DATE/TIME PROCEDURE ORDERING PROVIDER [id number] 10/26/2021 11:[address] Head or Brain w/o JUNIE PINEDA, SARINA Contrast CPT code 59597 Reason For Exam (CT Head or Brain w/o Contrast) hydrocephalus. thank you Report CLINICAL INFORMATION: Hydrocephalus. Shunt. 3 mm axial cuts through the head are obtained without IV contrast. The examination is compared to a previous study dated 06/29/2014. FINDINGS: Old [employer] shunt tubing is noted bilaterally. The new [...] clear. IMPRESSION: 1. Old and new [employer] shunt tubing. 2. No hydrocephalus. 3. Atrophy [...] Imaging ACCESSION EXAM DATE/TIME PROCEDURE ORDERING PROVIDER [id number] 10/23/2021 11:08 EDT MRI Abdomen w/o Contrast WING SRIVASTAVA CPT code 42445 Reason For Exam (MRI Abdomen w/o Contrast) [...] Medicine ACCESSION EXAM DATE/TIME PROCEDURE ORDERING PROVIDER [id number] 10/21/2021 07:55 EDT NM Pulmonary Perfusion [id number] -MAY CASH w/ Vent Aerosol CPT code 04507 A9567 Reason For Exam (NM Pulmonary Perfusion [...] Brachial Indices Extremity Bilateral Result Date: 10/22/2021 [facility] --- Ankle Brachial Index Report Patient DO GurpreetB: 1950 Study 10/21/2021 Name: Andrew Gonzalez (71yrs) Date: Age: 71 Account: [id number] Gender: M Loc: 444W BP: Ordering Physician: Shruthi Malik College President: Rody Cross RDMS, RVT Interpreting Physician: Carina Call --- Location: [facility] --- Indications: Foot wounds. Originally ordered as a full PVR. Ordering FILTRATION PLANT OPERATOR had to modify the order to [...] supine position. Images were obtained using a Dodonations vascular ultrasound machine. --- Arterial pressure indices: [...] EXTREMITY BILATERAL VENOUS DUPLEX Result Date: 10/21/2021 [facility] --- Lower Extremity Venous Duplex Report Patient DO GurpreetB: 1950 Study 10/21/2021 Name: Andrew Gonzalez (71yr) Date: Age: 71 Account: [id number] Gender: M Loc: 444 BP: Ordering Physician: May Cash College President: Rody Cross RDMS, RVT Interpreting Physician: Carina Call --- Location: [facility] --- Indications: Bilateral lower leg edema. --- [...] supine position. Images were obtained using a Dodonations vascular ultrasound machine. --- Venous flow and [...] Radiology ACCESSION EXAM DATE/TIME PROCEDURE ORDERING PROVIDER [id number] 10/21/2021 08:16 EDT CR Chest 1 View Frontal [id number] MAY BOGGS CPT code 03893 Reason For Exam (CR Chest 1 View [...] Tomography ACCESSION EXAM DATE/TIME PROCEDURE ORDERING PROVIDER [id number] 10/22/2021 13:[address] Abdomen/Pelvis (No SRIVASTAVA, WING PO, No IV) CPT code 17532 Reason For Exam (CT Abdomen/Pelvis (No PO, [...] 12:48 PM Consults Speech Language Pathology Facility/Department: [facility] Dysphagia Treatment Note NAME: [...] reactivity and state change, indicative of a ktno-qh-[id number] diffuse encephalopathy of nonspecific etiology. There are [...] Easy to chew diet/cut up. NEVILLE Jones M.A.CCC/PACKING LINE OPERATOR Time session ended: 1156 Total session minutes: 23 Images from the original note were not included. Hospitalist Progress Note 10/27/2021 10:40 AM [phone]: Please page me @ [phone] for patient care issues. [phone]: Please page smoke eater for any issues@ night Subjective: Admit Date: [...] due to misrecognition of the spoken word. [facility] Anticoagulation Management Service ([facility]) Inpatient Warfarin Consult HPI: Andrew Sifuentes is a 71 y.o. male admitted on 10/21/2021 for recurrent DVT. 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 Pt was [...] SNF. 4. Will provide warfarin education including [facility] warfarin booklet, if appropriate. Thank you for this consult Brionna Le, PharmD candidate Josie Gupta [facility], PharmD [facility] Consult Service is available daily [phone]. Please search for covering pharmacist name via [employer] or Groups --> Pharmacy --> Anti-Coagulation Consult Pharmacist (on 3rd page). If no response via PerfectServe, please page [phone]. I cleaned under patient's finger nails with [...] status with Warfarin. Discussed with patient's staffing account manager. Will continue to monitor. Total visit [...] concern Hydrocephalus Chronic WOODARD's - Revised [employer]PER[employer] PA[employer] shunt - daughter requested that pt have CT / MRI of brain and neurology be consulted, this was done. - Hydrocephalus management per Neurosurgery. At present patient does not have hydrocephalus on CT head done this morning. No Neurosurgery services available as inpatient in [facility]. Patient can follow up with Neurosurgery as outpatient and if ends up needing inpatient neurosurgery requirement then may need to be transferred to [facility]. Seizure history, unspecified - daughter requested that [...] get report from nursing. Continue wound care. [facility] Anticoagulation Management Service ([facility]) Inpatient Warfarin Consult HPI: Andrew Sifuentes is a 71 y.o. male admitted on 10/21/2021 for recurrent DVT. 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 Pt was [...] PharmD [facility] Consult Service is available daily [phone]. Please search for covering pharmacist name via [employer] or Groups --> Pharmacy --> Anti-Coagulation Consult Pharmacist (on 3rd page). If no response via [employer], please page [phone]. Moon daughter stated that any of patient's family can call and obtain an update on patient's status. Speech Language Pathology Facility/Department: [facility] CLINICAL BEDSIDE SWALLOW EVALUATION [...] a small bore straw. Additionally discussed with PACKING LINE OPERATOR, agreeable to assess tomorrow. Recent Chest [...] and liquids between bites. Treatment Plan Requires PACKING LINE OPERATOR Intervention: Yes Duration of Treatment: 2 [...] Education Response: Verbalizes understanding;Needs reinforcement Therapy Time PACKING LINE OPERATOR Individual Minutes Time In: 826 Time Out: 53 Minutes: 26 NEVILLE Jones 10/26/2021 9:20 AM Comprehensive Nutrition Assessment Type and Reason for Visit: Initial (DT referral for wounds) Nutrition Recommendations/Plan: 1. Recommend to continue: Easy to Chew diet with Thin Liquids as currently ordered and safe for patient to participate in. Discussed with: RN, FILTRATION PLANT OPERATOR, and PACKING LINE OPERATOR. PACKING LINE OPERATOR to assess tomorrow, best diet and [...] & deltoids),Scapula (trapezius) Fluid Accumulation: Mild Extremities Wire Cutter Strength: Not Performed Nutrition Assessment: 71 year [...] a small bore straw. Additionally discussed with PACKING LINE OPERATOR, agreeable to assess tomorrow. Nutrition Related [...] Anthropometric Measures: Height: 5' 7.01 (170.2 cm) [place] Body Weight (IBW): 148 lbs (67 kg) [...] On: Kcal/kg Weight Used for Energy Requirements: [place] (67.15 kg) Energy (kcal/day): 9137-2485 (27-32 kcal/kg IBW) --> increased need d/t wounds Weight Used for Protein Requirements: [place] (67.15 kg) Protein (g/day): 67-101 (1.0-1.5 g protein/kg IBW) Method Used for Fluid Requirements: Other (Comment) Fluid (ml/day): 8570-9752 mL daily or per MD Nutrition Diagnosis: [...] Plan of Care discussed with: Patient, RN, FILTRATION PLANT OPERATOR Edwin Goals: Goals: other (specify) Specify [...] to determine Puja Almanza RD, LD Contact: [phone] Or Via [employer] Hematology/Oncology Attending Progress Note SUBJECTIVE: Patient seen [...] IRON, TIBC, FERRITIN No results found for: [id number] No results found for: FOLATE PT 15.6 INR 1.5 CA 19 - 9 is 17 Protein S 138% Protein C 186% ASSESSMENT AND PLAN GI input appreciated. Patient continues with subtherapeutic INR. GI input appreciated. Discussed with patient's staffing account manager. Will continue monitor. Total visit time > 35 minutes. [facility] Anticoagulation Management Service ([facility]) Inpatient Warfarin Consult HPI: Andrew Sifuentes is a 71 y.o. male admitted on 10/21/2021 for recurrent DVT. 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 Pt was [...] drug interactions and adjust dose accordingly. 3. [facility] will manage while inpatient and sign off at discharge. Patient resides in a SNF. 4. Will provide warfarin education including [facility] warfarin booklet, if appropriate. Thank you for this consult Brionna Le, PharmD candidate Josie Gupta RPh, PharmD [facility] Consult Service is available daily [phone]. Please search for covering pharmacist name via [employer] or Groups --> Pharmacy --> Anti-Coagulation Consult Pharmacist (on 3rd page). If no response via [employer], please page [phone]. Progress Note 10/25/2021 9:36 AM Name: Andrew [...] concern Hydrocephalus Chronic WOODARD's - Revised SUPER[employer] PA[employer] shunt DC planning - 10/25/21: INR subtherapeutic, [...] concern Hydrocephalus Chronic WOODARD's - Revised SUPERVIS[employer] PA[employer] shunt DC planning - Can be DC'd back to ECF once MRI done if no acute findings, MRI is done, defer to hem / onc on plan for that, awaiting chest PA with fluoro Patient seen and chart reviewed. Consult dictated. Will ask GI to assess concerning the etiology of liver lesions. Will continue to monitor. [facility] Anticoagulation Management Service ([facility]) Inpatient Warfarin Consult HPI: Andrew R Gurpreet is a 71 y.o. male admitted on 10/21/2021 for recurrent DVT. 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 Pt was [...] drug interactions and adjust dose accordingly. 3. [facility] will manage while inpatient and sign off at discharge. Patient resides in a SNF. 4. Will provide warfarin education including [facility] warfarin booklet, if appropriate. Thank you for this consult Brionna Le, PharmD candidate Josie Gupta RPh, PharmD [facility] Consult Service is available daily [phone]. Please search for covering pharmacist name via [employer] or Groups --> Pharmacy --> Anti-Coagulation Consult Pharmacist (on 3rd page). If no response via [employer], please page [phone]. Follow up foot wounds Patient is more alert this morning. Waffle boots are on Ulcer left heel ulcer right foot Foot drop PE, chart reviewed. Patient relates that he does not walk at home. c ontinue wound care. Images from the original note were not included. Hospitalist Progress Note 10/23/2021 1:47 PM [phone]: Please page me ([phone]) or perfect serve me for patient care issues. [phone]: Please page IMS night Hospitalist for any [...] concern Hydrocephalus Chronic WOODARD's - Revised SUPER[employer] PA[employer] SH[employer] shunt DC planning - Can be DC'd [...] Hydrocephalus, adult (HCC) Kidney stone Neuropathy SUPER[employer] PA[employer] SH[employer]ARD (ventriculoperitoneal) shunt status Medications: sodium chloride warfarin [...] of Hospitalist Medicine Inpatient Medical Services PAGER: [phone] Nutrition rescreen completed. Pt referred to RD for foot ulcers. Occupational Therapy Facility/Department: [facility] Occupational Therapy Initial Assessment Name: Andrew Sifuentes : 1950 Date of Service: 10/23/2021 OT eval and treat orders received. Chart reviewed. Per notes pt from [facility], is Boaz lift at baseline, non-ambulatory, and requires assist for all ADLs. Will d/c OT orders. Elizabeth Gutierrez OT Physical Therapy Facility/Department: [facility] Physical Therapy Initial Assessment Name: Andrew Sifuentes : 1950 Date of Service: 10/23/2021 PT eval and treat orders received. Chart reviewed. Per notes pt from [facility], is Boaz lift at baseline, non-ambulatory. Will d/c PT orders. Lloyd Silva PT [facility] Anticoagulation Management Service ([facility]) Inpatient Warfarin Consult HPI: Andrew Sifuentes is a 71 y.o. 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 Pt was [...] PharmD [facility] Consult Service is available daily [phone]. Please search for covering pharmacist name via [employer] or Groups --> Pharmacy --> Anti-Coagulation Consult Pharmacist (on 3rd page). If no response via [employer], please page [phone]. Department of Podiatry Attending Consult Note Reason for Consult: Wound care Requesting Physician: MD Oksana CHIEF COMPLAINT: Foot wounds HISTORY OF PRESENT ILLNESS: The patient is a 71 y.o. male with b/l foot wounds. Patient is awake , but not answering questions. 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 Will follow . Thank you. [facility] Respiratory Care Department Progress Note As [...] included. Hospitalist Progress Note 10/22/2021 6:33 AM [phone]: Please page me ([phone]) or perfect serve me for patient care issues. [phone]: Please page IMS night Hospitalist for any issues. Subjective: Admit Date: 10/21/2021 PCP: MONIKA STALEY MD Room#: 972/4375 Admitting Synopsis: 71 y/o male presents from [...] MRI if concern Hydrocephalus - Revised SUPERVISOR PAINT[employer] SHIP[employer]ARD shunt Interval History: No overnight issues. 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 Hospitalist Progress Note 10/21/2021 5:31 PM [phone]: Please page me ([phone]) or perfect serve me for patient care issues. [phone]: Please page IMS night Hospitalist for any issues. Subjective: Admit Date: 10/21/2021 PCP: MONIKA STALEY MD Room#: 168/1464 Admitting Synopsis: 71 y/o male presents from [...] need chronic OAC Hydrocephalus - Revised SUPERVIS[employer] PA[employer] SH[employer]ARD shunt Interval History: No overnight issues. Denies [...] Hydrocephalus, adult (HCC) Kidney stone Neuropathy SUPER[employer] PA[employer] SH[employer]ARD (ventriculoperitoneal) shunt status Medications: sodium chloride baclofen [...] of Hospitalist Medicine Inpatient Medical Services PAGER: [phone] Family member Triny, sister to patient, called back to the hospital stating that she was returning a call from a provider. Her phone number is [phone] to speak with whomever was attempting to reach out to her. documented in this encounter KALA Zavala Phone: 10-17-2021 Miscellaneous Notes Mr. Sifuentes missed his hospital stay follow-up appointment w. Dr. Lim today. Called to Reschedule. Could not get through. Subscriber you have dialed not in service - was the automated voice mail. Unable to leave . No other phone# available. Ramya Negro [facility] [facility] documented in this encounter [facility] 08-19-2021 Note [facility] 08-19-2021 Note [facility] 08-18-2021 Note [facility] 08-18-2021 Note [facility] 08-17-2021 Note [facility] 08-17-2021 Note [facility] 08-16-2021 Note [facility] 08-16-2021 Note HNO ID: [id number] Author: Katt Kelsey DO Service: Hospital Medicine Author Type: Physician Type: Plan of Care Filed: 08/16/2021 12:26 PM Note Text: Spoke with RN that line is a PICC. Katt Kelsey DO 08/16/2021 12:26 PM [facility] 08-16-2021 Note [facility] 08-16-2021 Note [facility] 08-15-2021 Note [facility] 08-15-2021 Note [facility] 08-15-2021 Note [facility] 08-14-2021 Note [facility] 08-14-2021 Note [facility] 08-13-2021 Note [facility] 08-13-2021 Note [facility] 08-13-2021 Note [facility] 08-13-2021 Note HNO ID: [id number] Author: Interface Note Service: ? Author Type: ? Type: Progress Notes Filed: 08/13/2021 3:10 AM Note Text: Epic Scheduled Downtime: 08/13/2021 1:08:47 AM to 08/13/2021 2:53:47 AM [facility] 08-12-2021 Note [facility] 08-12-2021 Note [facility] 08-12-2021 Note [facility] 08-11-2021 Note [facility] 08-11-2021 Note [facility] 08-11-2021 Note [facility] 08[facility]11-2021 Note [facility] 08-11-2021 Note [facility] 08[facility]11-2021 Note [facility] 08-10-2021 Note [facility] 08-10-2021 Note [facility] 08-10-2021 Note [facility] 08-10-2021 Note [facility] 08-09-2021 Note HNO ID: [id number] Author: Shannon Brooks RN Service: ? Author Type: Registered Nurse Type: Nursing Progress Note Filed: 08/09/2021 7:33 PM Note Text: Report called to unit [facility] 08-09-2021 Note [facility] 08-09-2021 Note [facility] 08-09-2021 Note [facility] 08-08-2021 Note [facility] 08-08-2021 Note [facility] 08[facility]08-2021 Note [facility] 08-07-2021 Note [facility] 08[facility]07-2021 Note [facility] 08[facility]07-2021 Note [facility] 08-07-2021 Note [facility] 08-07-2021 Note [facility] 08-06-2021 Note [facility] 08-06-2021 Note [facility] 08-06-2021 Note [facility] 08-05-2021 Note [facility] 08[facility]05-2021 Note [facility] 08[facility]05-2021 Note [facility] 08-04-2021 Note [facility] 08[facility]04-2021 Note [facility] 08-04-2021 Note [facility] 08-03-2021 Note [facility] 08[facility]03-2021 Note [facility] 08[facility]03-2021 Note [facility] 08-02-2021 Note [facility] 08-02-2021 Note [facility] 08-02-2021 Note [facility] 08-01-2021 Note [facility] 08-01-2021 Note [facility] 08[facility]01-2021 Note [facility] 08-01-2021 Note [facility] 07-31-2021 Note [facility] 07-31-2021 Note [facility] 07-30-2021 Note [facility] 07-30-2021 Note [facility] 07-30-2021 Note [facility] 07-29-2021 Note [facility] 07-29-2021 Note [facility] 07-29-2021 Note [facility] 07-28-2021 Note [facility] 07-28-2021 Note [facility] 07-28-2021 Note [facility] 07-27-2021 Note [facility] 07-27-2021 Note [facility] 07-27-2021 Note [facility] 07-26-2021 Note [facility] 07-26-2021 Note [facility] 07-26-2021 Note [facility] 07-26-2021 Note [facility] 07-26-2021 Note [facility] 07-25-2021 Note [facility] 07-25-2021 Note [facility] 07-25-2021 Note [facility] 07-25-2021 Note [facility] 07-24-2021 Note [facility] 07[facility]24-2021 Note [facility] 07-24-2021 Note [facility] 07-23-2021 Note [facility] 07-23-2021 Note [facility] 07-23-2021 Note [facility] 07-23-2021 Note [facility] 07-23-2021 Note [facility] 07-22-2021 Note [facility] 07-22-2021 Note [facility] 07-22-2021 Note [facility] 07-21-2021 Note [facility] 07-21-2021 Note [facility] 07-21-2021 Note [facility] 07-21-2021 History of Past i [...] of fever, elevated WBC, RP hematoma SUPERVIS[employer] PA[employer] SHIP[employer]ARD shunt tip grew anaerobic gram positive cocci 06/08/2021 PLAN: SUPERVISOR PAINTING SHIPYARD shunt tip sent to [facility] main, awaiting cx Continue Meropenem [...] - following CSF studies; 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 for PLY CUTTER infection at this time - ID following- Continue antibiotics: Meropenem -CSF leak from EVD site, appreciate NSGY recs> stat repeat CTH on 06/07 d/t concern for CSF leak, cephalematoma, CTH unremarkable -Tolerating TF - SBT WTE - PICC line placed documented as of this encounter (statuses as of 10/17/2021) [facility]03-17-2022 [facility]03-16-2022 [facility]03-16-2022 [facility]03-16-2022 Note [facility]03-16-2022 [facility] 07-19-2021 [facility]03-15-2022 [facility]03[facility]15-2022 [facility]03-14-2022 [facility]03[facility]14-2022 [facility]03-13-2022 [facility]03-13-2022 [facility]03-12-2022 Note [facility]03-12-2022 [facility] 07-15-2021 [facility]03-11-2022 [facility]03-10-2022 [facility]03-10-2022 [facility]03[facility]10-2022 [facility]03-09-2022 [facility]03[facility]09-2022 [facility]03-09-2022 Note [facility]03-09-2022 [facility] 07-12-2021 [facility]03-08-2022 [facility]03-07-2022 [facility]03-07-2022 [facility]03-07-2022 [facility]03-07-2022 [facility]03-06-2022 [facility]03-06-2022 Note [facility]03-05-2022 [facility] 07-09-2021 [facility]03-05-2022 [facility]03-05-2022 [facility]03-05-2022 NoteHNO ID: [id number] Author: Lizette Valderrama RN Service: Nursing Author Type: Registered Nurse Type: Nursing Progress Note Filed: 07/09/2021 1:41 AM Note Text: Report called to [facility]03-04-2022 NoteHNO ID: [id number] Author: Lizette Valderrama RN Service: Nursing Author Type: Registered Nurse Type: Nursing Progress Note Filed: 07/08/2021 8:57 PM Note Text: [address]49 back to PACU [address] [place], [place] [address]103-04-2022 NoteHNO ID: [id number] Author: Sukhi Chery APRN.CNP Service: ? Author Type: Nurse Practitioner Type: Progress Notes Filed: 07/09/2021 6:46 PM Note Text: Connected Care Unit Progress Note Patient Name: Andrew Sifuentes Patient Facility: [facility] Admit Date 06/28/2021 Level of Care: [...] Dept Phone 07/21/2021 11:00 AM NICOLE LIM [phone] HPI: (Per Dr. Beltran) Andrew Sifuentes is being seen today for shelter facility (SNF) admission AND management of weakness, tube feed, infected retroperitoneal infection and seizure. ? This is a 71 year old male who presents from [facility] with primary admitting diagnosis of [...] brain concerning for hydrocephalus. Tip of SUPERVISOR PAINT[employer] SHIP[employer]ARD shunt was found to be in the [...] slow to respond. Ordered to transfer to [facility] ED for evaluation of neurological and [...] changes in co (more content not included)... [facility]03-04-2022 [facility]03-04-2022 [facility]03-02-2022 NoteHNO ID: [id number] Author: Sukhi Chery APRN.CNP Service: ? Author Type: Nurse Practitioner Type: Progress Notes Filed: 07/09/2021 6:20 PM Note Text: Connected Care Unit Progress Note Patient Name: Andrew Sifuentes Patient Facility: [facility] Admit Date 06/28/2021 Level of Care: [...] Dept Phone 07/21/2021 11:00 AM NICOLE LIM [phone] HPI: (Per Dr. Beltran) Andrew Sifuentes is being seen today for shelter facility (SNF) admission AND management of weakness, tube feed, infected retroperitoneal infection and seizure. ? This is a 71 year old male who presents from [facility] with primary admitting diagnosis of [...] brain concerning for hydrocephalus. Tip of SUPER[employer] shunt was found to be in the [...] Pharynx: Oropharynx is clear. (more content not included)...[facility]02-28-2022 NoteHNO ID: [id number] Author: Sukhi Chery APRN.CNP Service: ? Author Type: Nurse Practitioner Type: Progress Notes Filed: 07/09/2021 6:07 PM Note Text: Connected Care Unit Progress Note Patient Name: Andrew Sifuentes Patient Facility: [facility] Admit Date 06/28/2021 Level of Care: [...] but nursing notes it was drawn by senior product integrity engineer as vancomycin was being infused; reordered trough - PICC Line Intact - No fevers or chills per patient or staff (R53.81) Debility - Certify therapies - Maintain high falls risk precautions - pt/staff verbalize understanding validated via teach back - Monitor safety awareness Appointments for Next 60 Days Date Time Provider Location Dept Phone 07/21/2021 11:00 AM NICOLE LIM [phone] HPI: (Per Dr. Beltran) Andrew Sifuentes is being seen today for shelter facility (SNF) admission AND management of weakness, tube feed, infected retroperitoneal infection and seizure. ? This is a 71 year old male who presents from [facility] with primary admitting diagnosis of [...] brain concerning for hydrocephalus. Tip of SUPER[employer] shunt was found to be in the [...] to facility records. OBJECTIVE: Labs/diagnostics: 07/04/2021 Glucose=91 Zu=986 K=3.8 Qm=361 CO2=24 BUN=14 Creatinine=0.5 WWW=991 Ca=9.0 Protein,Total=6.7 Albumin=3.6 NegByay=444 AST=15 ALT=21 Bilirubin,Totall=0.5 WBC=10.7 RBC=4.04 Hgb=10.9 Hct=35.3 Plfetvog=683 VancomycinTr (more content not included)...[facility]02-24-2022 NoteHNO ID: [id number] Author: Sukhi Chery APRN.CNP Service: ? Author Type: Nurse Practitioner Type: Progress Notes Filed: 07/09/2021 5:43 PM Note Text: Connected Care Unit Progress Note Patient Name: Andrew Sifuentes Patient Facility: [facility] Admit Date 06/28/2021 Level of Care: [...] Dept Phone 07/21/2021 11:00 AM NICOLE LIM [phone] HPI: (Per Dr. Beltran) Andrew Sifuentes is being seen today for shelter facility (SNF) admission AND management of weakness, tube feed, infected retroperitoneal infection and seizure. ? This is a 71 year old male who presents from [facility] with primary admitting diagnosis of [...] brain concerning for hydrocephalus. Tip of SUPER[employer] shunt was found to be in the [...] to facility records. OBJECTIVE: Labs/diagnostics: 07/01/2021 Glucose=83 Om=300 K=4.1 Uy=757 CO2=27 BUN=22 Creatinine=0.6 RGU=256 Ca=8.7 WBC=10.8 RBC=3.40 Hgb=9.3 Hct=29.9 Hluxihrp=498 Vital Signs: BP 128/80 Pulse 77 Temp 36.7 ?C (98 ?F) Resp 20 Ht 182.9 cm (6') Wt 113 kg (249 lb 3.2 oz) SpO2 96% BMI 33.80 kg/m? Physical Exam: Physical Exam Vitals reviewed. Constitutional: General: He is not in acute distress. (more content not included)...[facility]02-21-2022 [facility]02-21-2022 Note [facility]02[facility]20-2022 [facility] 06-26-2021 [facility]02-19-2022 [facility]02[facility]19-2022 [facility]02-18-2022 [facility]02-18-2022 [facility]02[facility]18-2022 [facility]02-17-2022 [facility]02-17-2022 Note [facility]02-17-2022 [facility] 06-22-2021 NoteHNO ID: [id number] Author: Xiomy England RN Service: Nursing Author Type: Registered Nurse Type: Nursing Progress Note Filed: 06/22/2021 7:22 PM Note Text: RT contacted as pt has wheezing auscultated and same auditory. For prn Treatment.[facility]02-16[facility]22 [facility]02-16-2022 [facility]02-16-2022 [facility]02[facility]16-2022 [facility]02[facility]16-2022 [facility]02-15-2022 [facility]02-15-2022 Note [facility]02-15-2022 [facility] 06[facility]21-2021 [facility]02-14-2022 [facility]02[facility]14-2022 [facility]02-14-2022 [facility]02-14-2022 [facility]02[facility]14-2022 [facility]02-13-2022 [facility]02-13-2022 Note [facility]02-13-2022 [facility] 06[facility]19-2021 [facility]02-13-2022 [facility]02[facility]12-2022 [facility]02[facility]12-2022 [facility]02-12-2022 [facility]02[facility]12-2022 [facility]02-12-2022 [facility]02-12-2022 Note [facility]02-12-2022 NoteHNO ID: [id number] Author: Interface Note Service: ? Author Type: ? Type: Progress Notes Filed: 06/18/2021 3:10 AM Note Text: Epic Scheduled Downtime: 06/18/2021 1:00:00 AM to 06/18/2021 2:27:00 [facility]02-11-2022 Note [facility]02-11-2022 [facility] 06[facility]17-2021 [facility]02-11-2022 [facility]02[facility]11-2022 [facility]02-10-2022 [facility]02-10-2022 [facility]02-10-2022 [facility]02[facility]10-2022 [facility]02-10-2022 Note [facility]02-10-2022 [facility] 06-15-2021 [facility]02-09-2022 NoteHNO ID: [id number] Author: Lamonte Kline DO Service: Neurology ICU Author Type: Resident Type: Plan of Care Filed: 06/15/2021 6:21 PM Note Text: Patient's daughter Melissa updated on plan of care and critical condition, all questions answered.[facility]02-09-2022 [facility]02-09-2022 [facility]02[facility]09-2022 [facility]02[facility]09-2022 [facility]02-09-2022 Note [facility]02-09-2022 [facility] 06[facility]15-2021 [facility]02-08-2022 [facility]02[facility]08-2022 [facility]02-08-2022 [facility]02-08-2022 [facility]02-07-2022 [facility]02-07-2022 [facility]02-07-2022 Note [facility]02-07-2022 [facility] 06-12-2021 [facility]02-06-2022 [facility]02[facility]06-2022 [facility]02-05-2022 [facility]02[facility]05-2022 [facility]02-04-2022 [facility]02[facility]04-2022 [facility]02-04-2022 Note [facility]02-04-2022 [facility] 06-09-2021 [facility]02-03-2022 [facility]02[facility]03-2022 [facility]02-03-2022 [facility]02-02-2022 [facility]02-02-2022 NoteHNO ID: [id number] Author: Luis Diaz RN Service: ? Author Type: Registered Nurse Type: Nursing Progress Note Filed: 06/08/2021 9:23 AM Note Text: Patient off the floor to OR at this time.[facility]02[facility]22 [facility]02-02-2022 [facility] 06-08-2021 NoteHNO ID: [id number] Author: Eloise Samuel RN Service: ? Author Type: Registered Nurse Type: Nursing Progress Note Filed: 06/08/2021 12:46 AM Note Text: Dr. Brito notified of changes throughout shift. No new orders at this [facility] 06-07-2021 NoteHNO ID: [id number] Author: Eloise Samuel RN Service: ? Author Type: Registered Nurse Type: Nursing Progress Note Filed: 06/07/2021 8:01 PM Note Text: Neuro surg [facility] notified of downward deviation of pupils. No new orders at this time.[facility]02-01-2022 [facility]02-01-2022 [facility]02-01-2022 [facility]02-01-2022 [facility]01-31-2022 [facility]01[facility]31-2022 [facility]01-31-2022 Note [facility]01-31-2022 [facility] 06-05-2021 [facility]01-30-2022 [facility]01-30-2022 [facility]01-29-2022 [facility]01-29-2022 NoteHNO ID: [id number] Author: Jermaine Miller PA-C Service: Neurosurgery Author Type: Physician Investigative Agent Type: Plan of Care Filed: 06/04/2021 1:59 PM Note Text: Discussed with Dr. Charles CT brain results. At this time, continue with EVD at 5 [facility]01-29-2022 [facility] 06-04-2021 [facility]01-28-2022 [facility]01-28-2022 NoteHNO ID: [id number] Author: Mauricio Frank DO Service: Neurology ICU Author Type: Physician Type: Plan of Care Filed: 06/03/2021 2:38 PM Note Text: I spoke with Melissa and updated her over the phone. Mauricio Frank, [facility]01-28-2022 [facility]01-28-2022 [facility]01-27-2022 [facility]01-27-2022 [facility]01-27-2022 Note [facility]01-26-2022 [facility] 06-01-2021 [facility]01-26-2022 [facility]01-26-2022 [facility]01[facility]26-2022 [facility]01-25-2022 [facility]01-25-2022 [facility]01-25-2022 [facility]01-25-2022 Note [facility]01-25-2022 [facility] 05-31-2021 [facility] Diagnosis Leg swelling- Primary Swelling of limb Acute deep vein thrombosis (DVT) of proximal vein of lower extremity, unspecified laterality (HCC) DVT, lower extremity, recurrent, unspecified laterality (HCC) Moderate malnutrition (HCC) Malnutrition of moderate degree History of seizures Personal history of other disorders of nervous system and sense organs documented in this encounter [facility] Work Phone: Evaluation noteNo assessment information available [facility] Work Phone: Evaluation note* Diagnosis Other fatigue- Primary [facility] encounter [facility] Work Phone: Evaluation note* Diagnosis Heel ulceration, left, with unspecified severity (HCC)- Primary [facility] this encounter [facility] Work Phone: Evaluation note* Diagnosis Fall, initial encounter- Primary Anticoagulated Encounter for long-term (current) use of anticoagulants documented in this encounter [facility] Work Phone: Evaluation note* Diagnosis Left flank pain- Primary Abdominal pain, unspecified site Calculus of ureter Disease of prostate Unspecified disorder of prostate BPH with urinary obstruction Hypertrophy of prostate with urinary obstruction and other lower urinary tract symptoms (LUTS) documented in this encounter [facility]* Diagnosis Left flank pain Abdominal pain, unspecified site Calculus of ureter documented in this encounter [facility] note* Diagnosis Left flank pain- Primary Abdominal pain, unspecified site BPH with urinary obstruction Hypertrophy of prostate with urinary obstruction and other lower urinary tract symptoms (LUTS) History of kidney stones documented in this encounter [facility] HealthInstructions* Name Dates Details Instructions not documented [id number] Work Phone: Instructions* Name Dates Details Instructions not documented [id number] [address] [place] Work Phone: Reason for referral (narrative)No reason for referral information availableAv[facility] Work Phone: Advance Directives No Advanced Directives Records FoundDocuments on File Type Date Recorded 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 Grinder 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 Expl anation Advance Directives and Living Will Power of Flat Sheet Maker Documents on File Type Date Recorded 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 Grinder Operator Expl anation Advance Directive(s) 06/02/2021 2:45 PM [...] Maker Relationship: 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 Adult Children (event marketing representative) Documents on File Type Date Recorded 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 Grinder Operator Expl anation ACP-Advance Directive ACP-Power of Flat Sheet Maker Latest Code Status on File Code Status Date Activated Date Inactivated Comments Full Code 10/21/2021 4:09 AM Healthcare Agents on File Name Relationship Healthcare Agent Relationshi p Communication Melissa Gurpreet Child Primary Decision Maker deann Gurpreet Child Secondary Decision Maker Documents on File Type Date Recorded 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 Grinder Operator Expl anation ACP-Advance Directive ACP-Power of Flat Sheet Maker ACP-Do Not Resuscitate 11/01/2021 7:03 AM Latest Code Status on File Code Status Date Activated Date Inactivated Comments Full Code 10/21/2021 4:09 AM 10/29/2021 7:25 PM Healthcare Agents on File Name Relationship Healthcare Agent Relationshi p Communication Melissa Gurpreet Child Primary Decision Maker deann Gurpreet Child Secondary Decision Maker Documents on File Type Date Recorded 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 Grinder Operator Expl anation ACP-Do Not Resuscitate 11/03/2021 10:15 AM ACP-Do Not Resuscitate 11/01/2021 7:03 AM Healthcare Agents on File Name Relationship Healthcare Agent Relationshi p Communication Melissa Gurpreet Child Primary Decision Maker deann Gurpreet Child Secondary Decision Maker Documents on File Type Date Recorded 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 Grinder Operator Expl anation ACP-Do Not Resuscitate 11/03/2021 10:15 [...] Documents on File Type Date Recorded 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 Grinder Operator Expl anation DNR (Do Not Resuscitate) 10/31/2021 DNR (Do Not Resuscitate) 10/21/2021 Documents on File Type Date Recorded 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 Grinder Operator Expl anation DNR (Do Not Resuscitate) 10/31/2021 [...] WORK LABWORK Chief Complaint LAB WORK LABWORK DETENTION LAB WORK DETENTION LABWORK Chief Complaint LAB WORK LABWORK DETENTION LAB WORK DETENTION LABWORK LABWORK LABWORK DETENTION LAB WORK DETENTION LABWORK DETENTION LAB WORK LABWORK DETENTION LAB WORK LABWORK DETENTION LABWORK Chief Complaint LAB WORK LABWORK DETENTION LAB WORK DETENTION LABWORK LABWORK LABWORK DETENTION LAB WORK DETENTION LABWORK DETENTION LAB WORK LABWORK DETENTION LAB WORK LABWORK DETENTION LABWORK DETENTION LABWORK LABWORK Chief Complaint LAB WORK LABWORK DETENTION LAB WORK DETENTION LABWORK LABWORK LABWORK DETENTION LAB WORK DETENTION LABWORK DETENTION LAB WORK LABWORK DETENTION LAB WORK LABWORK DETENTION LABWORK DETENTION LABWORK LABWORK DETENTION LAB WORK Chief Complaint LABWORK DETENTION LAB WORK DETENTION LABWORK LABWORK LABWORK DETENTION LAB WORK DETENTION LABWORK DETENTION LAB WORK LABWORK DETENTION LAB WORK LABWORK DETENTION LABWORK DETENTION LABWORK LABWORK LABWORK DETENTION LAB WORK Chief Complaint LABWORK DETENTION LAB WORK DETENTION LABWORK LABWORK LABWORK DETENTION LAB WORK DETENTION LABWORK DETENTION LAB WORK LABWORK DETENTION LAB WORK LABWORK DETENTION LABWORK DETENTION LABWORK LABWORK LABWORK DETENTION LAB WORK LABWORK DETENTION LABWORK DETENTION LAB WORK DETENTION LABWORK Chief Complaint DETENTION LAB WOR K DETENTION LABWORK LABWORK LABWORK DETENTION LAB WORK DETENTION LABWORK DETENTION LAB WORK LABWORK DETENTION LAB WORK LABWORK DETENTION LABWORK DETENTION LABWORK LABWORK LABWORK DETENTION LAB WORK LABWORK DETENTION LABWORK DETENTION LAB WORK DETENTION LABWORK DETENTION LAB WORK Chief Complaint DETENTION LABWORK LABWORK LABWORK DETENTION LAB WORK DETENTION LABWORK DETENTION LAB WORK LABWORK DETENTION LAB WORK LABWORK DETENTION LABWORK DETENTION LABWORK LABWORK LABWORK DETENTION LAB WORK LABWORK DETENTION LABWORK DETENTION LAB WORK DETENTION LABWORK LABWORK DETENTION LAB WORK Chief Complaint DETENTION LAB WOR K DETENTION LABWORK DETENTION LAB WORK LABWORK DETENTION LAB WORK LABWORK DETENTION LABWORK DETENTION LABWORK LABWORK LABWORK DETENTION LAB WORK LABWORK DETENTION LABWORK DETENTION LAB WORK DETENTION LABWORK LABWORK LABWORK DETENTION LAB WORK DETENTION PATIENT DETENTION LABWORK DETENTION LABWORK Chief Complaint LABWORK DETENTION LAB WORK LABWORK DETENTION LABWORK DETENTION LABWORK LABWORK LABWORK DETENTION LAB WORK LABWORK DETENTION LABWORK DETENTION LAB WORK DETENTION LABWORK LABWORK LABWORK DETENTION LAB WORK DETENTION PATIENT DETENTION LABWORK DETENTION LABWORK DETENTION LAB WORK Chief Complaint LABWORK DETENTION LABWORK DETENTION LABWORK LABWORK LABWORK DETENTION LAB WORK LABWORK DETENTION LABWORK DETENTION LAB WORK DETENTION LABWORK LABWORK LABWORK DETENTION LAB WORK DETENTION PATIENT DETENTION LABWORK DETENTION LABWORK DETENTION LAB WORK DETENTION LAB WORK DETENTION LAB WORK Chief Complaint LABWORK LABWORK DETENTION LAB WORK DETENTION PATIENT DETENTION LABWORK DETENTION LABWORK DETENTION LAB WORK DETENTION LAB WORK DETENTION LAB WORK DETENTION LABWORK DETENTION LABWORK LABWORK DETENTION LAB WORK LABWORK Chief Complaint DETENTION LAB WOR K DETENTION PATIENT DETENTION LABWORK DETENTION LABWORK DETENTION LAB WORK DETENTION LAB WORK DETENTION LAB WORK DETENTION LABWORK DETENTION LABWORK LABWORK DETENTION LAB WORK LABWORK DETENTION LABWORK Chief Complaint DETENTION PATIENT DETENTION LABWORK DETENTION LABWORK DETENTION LAB WORK DETENTION LAB WORK DETENTION LAB WORK DETENTION LABWORK DETENTION LABWORK LABWORK DETENTION LAB WORK LABWORK DETENTION LABWORK DETENTION LABWORK Chief Complaint DETENTION LABWORK DETENTION LAB WORK DETENTION LAB WORK DETENTION LAB WORK DETENTION LABWORK DETENTION LABWORK LABWORK DETENTION LAB WORK LABWORK DETENTION LABWORK DETENTION LABWORK DETENTION LABWORK Chief Complaint DETENTION LABWORK DETENTION LAB WORK DETENTION LAB WORK DETENTION LAB WORK DETENTION LABWORK DETENTION LABWORK LABWORK DETENTION LAB WORK LABWORK DETENTION LABWORK DETENTION LABWORK DETENTION LABWORK DETENTION LABWORK Chief Complaint DETENTION LABWORK LABWORK DETENTION LAB WORK LABWORK DETENTION LABWORK DETENTION LABWORK DETENTION LABWORK DETENTION LABWORK DETENTION LABWORK LABWORK DETENTION LABWORK Chief Complaint LABWORK DETENTION LAB WORK LABWORK DETENTION LABWORK DETENTION LABWORK DETENTION LABWORK DETENTION LABWORK DETENTION LABWORK LABWORK LABWORK DETENTION LABWORK DETENTION LAB WORK DETENTION LABWORK DETENTION LAB WORK Chief Complaint LABWORK DETENTION LAB WORK LABWORK DETENTION LABWORK DETENTION LABWORK DETENTION LABWORK DETENTION LABWORK DETENTION LABWORK LABWORK LABWORK DETENTION LABWORK DETENTION LAB WORK DETENTION LABWORK DETENTION LAB WORK DETENTION LABWORK Chief Complaint LABWORK DETENTION LAB WORK LABWORK DETENTION LABWORK DETENTION LABWORK DETENTION LABWORK DETENTION LABWORK DETENTION LABWORK LABWORK LABWORK DETENTION LABWORK DETENTION LAB WORK DETENTION LABWORK DETENTION LAB WORK DETENTION LABWORK LABWORK Chief Complaint DETENTION LABWORK DETENTION LABWORK DETENTION LABWORK DETENTION LABWORK DETENTION LABWORK LABWORK LABWORK DETENTION LABWORK DETENTION LAB WORK DETENTION LABWORK DETENTION LAB WORK DETENTION LABWORK LABWORK DETENTION LABWORK Chief Complaint DETENTION LABWORK DETENTION LABWORK DETENTION LABWORK DETENTION LABWORK DETENTION LABWORK LABWORK LABWORK DETENTION LABWORK DETENTION LAB WORK DETENTION LABWORK DETENTION LAB WORK DETENTION LABWORK LABWORK DETENTION LABWORK LABWORK Chief Complaint DETENTION LABWORK LABWORK LABWORK DETENTION LABWORK DETENTION LAB WORK DETENTION LABWORK DETENTION LAB WORK DETENTION LABWORK LABWORK DETENTION LABWORK LABWORK DETENTION LAB WORK DETENTION LAB WORK DETENTION LABWORK Chief Complaint LABWORK DETENTION LABWORK LABWORK DETENTION LAB WORK DETENTION LAB WORK DETENTION LABWORK DETENTION LABWORK DETENTION LAB WORK DETENTION LAB WORK DETENTION LAB WORK LABWORK DETENTION LABWORK Chief Complaint DETENTION LAB WOR K DETENTION LAB WORK DETENTION LABWORK DETENTION LABWORK DETENTION LAB WORK DETENTION LAB WORK DETENTION LAB WORK LABWORK DETENTION LABWORK LABWORK DETENTION LAB WORK DETENTION LAB WORK Chief Complaint DETENTION LAB WOR K DETENTION LABWORK DETENTION LABWORK DETENTION LAB WORK DETENTION LAB WORK DETENTION LAB WORK LABWORK DETENTION LABWORK LABWORK DETENTION LAB WORK DETENTION LAB WORK Chief Complaint DETENTION LABWORK DETENTION LABWORK DETENTION LAB WORK DETENTION LAB WORK DETENTION LAB WORK LABWORK DETENTION LABWORK LABWORK DETENTION LAB WORK DETENTION LAB WORK DETENTION LABWORK LABWORK LABWORK Chief Complaint DETENTION LAB WOR K DETENTION LAB WORK DETENTION LAB WORK LABWORK DETENTION LABWORK LABWORK DETENTION LAB WORK DETENTION LAB WORK DETENTION LABWORK LABWORK LABWORK LABWORK LABWORK LABWORK Chief Complaint DETENTION LAB WOR K LABWORK DETENTION LABWORK LABWORK DETENTION LAB WORK DETENTION LAB WORK DETENTION LABWORK LABWORK LABWORK LABWORK LABWORK DETENTION LABWORK DETENTION LAB WORK LABWORK DETENTION LAB WORK DETENTION LAB WORK Chief Complaint DETENTION LAB WOR K LABWORK DETENTION LABWORK LABWORK DETENTION LAB WORK DETENTION LAB WORK DETENTION LABWORK LABWORK LABWORK LABWORK LABWORK DETENTION LABWORK DETENTION LAB WORK LABWORK DETENTION LAB WORK DETENTION LAB WORK DETENTION LABWORK Chief Complaint DETENTION LAB WOR K DETENTION LAB WORK DETENTION LABWORK LABWORK LABWORK LABWORK LABWORK DETENTION LABWORK DETENTION LAB WORK LABWORK DETENTION LAB WORK DETENTION LAB WORK DETENTION LABWORK NUSING HOME LAB WORK Chief Complaint DETENTION LAB WOR K DETENTION LABWORK LABWORK LABWORK LABWORK LABWORK DETENTION LABWORK DETENTION LAB WORK LABWORK DETENTION LAB WORK DETENTION LAB WORK DETENTION LABWORK NUSING HOME LAB WORK LABWORK Chief Complaint DETENTION LAB WOR K DETENTION LABWORK LABWORK LABWORK LABWORK LABWORK DETENTION LABWORK DETENTION LAB WORK LABWORK DETENTION LAB WORK DETENTION LAB WORK DETENTION LABWORK NUSING HOME LAB WORK DETENTION LABWORK LABWORK Chief Complaint LABWORK DETENTION LAB WORK DETENTION LAB WORK DETENTION LABWORK NUSING HOME LAB WORK DETENTION LABWORK LABWORK DETENTION LABWORK DETENTION LAB WORK LABWORK LABWORK Chief Complaint NUSING HOME LAB WORK DETENTION LABWORK LABWORK DETENTION LABWORK DETENTION LAB WORK LABWORK DETENTION LAB WORK LABWORK LABWORK Chief Complaint NUSING HOME LAB WORK DETENTION LABWORK LABWORK DETENTION LABWORK DETENTION LAB WORK LABWORK DETENTION LAB WORK LABWORK DETENTION LAB WORK LABWORK Chief Complaint DETENTION LABWORK LABWORK DETENTION LABWORK DETENTION LAB WORK LABWORK DETENTION LAB WORK LABWORK DETENTION LAB WORK LABWORK LABWORK Chief Complaint DETENTION LABWORK LABWORK DETENTION LABWORK DETENTION LAB WORK LABWORK DETENTION LAB WORK LABWORK DETENTION LAB WORK LABWORK LABWORK LABWORK Chief Complaint DETENTION LABWORK LABWORK DETENTION LABWORK DETENTION LAB WORK LABWORK DETENTION LAB WORK LABWORK DETENTION LAB WORK LABWORK LABWORK LABWORK LABWORK Chief Complaint DETENTION LABWORK LABWORK DETENTION LABWORK DETENTION LAB WORK LABWORK DETENTION LAB WORK LABWORK DETENTION LAB WORK LABWORK LABWORK DETENTION LAB WORK LABWORK LABWORK LABWORK Chief Complaint LABWORK DETENTION LABWORK DETENTION LAB WORK LABWORK DETENTION LAB WORK LABWORK DETENTION LAB WORK LABWORK LABWORK DETENTION LAB WORK LABWORK LABWORK LABWORK LABWORK LABWORK LABWORK LABWORK Chief Complaint DETENTION LABWORK DETENTION LAB WORK LABWORK DETENTION LAB WORK LABWORK DETENTION LAB WORK LABWORK LABWORK DETENTION LAB WORK LABWORK LABWORK LABWORK LABWORK LABWORK LABWORK LABWORK LABWORK Chief Complaint LABWORK DETENTION LAB WORK LABWORK DETENTION LAB WORK LABWORK LABWORK DETENTION LAB WORK LABWORK LABWORK LABWORK LABWORK LABWORK LABWORK LABWORK LABWORK LABWORK Chief Complaint DETENTION LABWORK LABWORK LABWORK LABWORK LABWORK DETENTION LABWORK DETENTION LAB WORK LABWORK DETENTION LAB WORK DETENTION LAB WORK DETENTION LABWORK NUSING HOME LAB WORK DETENTION LABWORK LABWORK DETENTION LABWORK DETENTION LAB WORK Chief Complaint Admit Date DETENTION LAB WORK March 13, 2024 5:00am LABWORK March 14, 2024 5 :00am DETENTION LAB WORK March 17 5:00am DETENTION LAB WORK March 18 5:00am DETENTION LAB WORK March 19 4:00am DETENTION LAB WORK March 20 5:00am DETENTION LAB WORK March 24 5:00am DETENTION LAB WORK March 27 5:00am LABWORK March 31, 2024 5:00am DETENTION LAB WORK April 04 5:00am LABWORK April 07, 2024 5 :00am DETENTION LAB WORK April 10, 2024 5:00am DETENTION LAB WORK April 14, 2024 5:00am DETENTION LAB WORK April 17 5:00am LABWORK April 21, 2024 5:00am DETENTION LAB WORK April 24 4:00am LABWORK April 28, 2024 5:00am DETENTION LAB WORK May 01 4:00am DETENTION LAB WORK May 05 5:00am DETENTION LAB WORK May 08, 2024 5:00am DETENTION LAB WORK May 09, 2024 4:00am LABWORK May 12, 2024 5: 00am DETENTION LAB WORK May 15, 2024 5:00am DETENTION LAB WORK May 19, 2024 4:00am DETENTION LAB WORK May 20, 2024 5:00am DETENTION LAB WORK May 22, 2024 5:00am LABWORK May 26, 2024 5 :00am DETENTION LAB WORK May 29, 2024 5:00am DETENTION LAB WORK June 02, 2024 5:00am DETENTION LAB WORK June 05, 2024 5:00am LABWORK June 09, 2024 5 :00am DETENTION LAB WORK June 12, 2024 5:00am DETENTION LAB WORK June 16 5:00am DETENTION LAB WORK June 19 5:00am LABWORK June 23, 2024 5:00am DETENTION LAB WORK June 26 5:00am DETENTION LAB WORK June 30 5:00am Chief Complaint Admit Date LABWORK April 07, 2024 5 :00am DETENTION LAB WORK April 10, 2024 5:00am DETENTION LAB WORK April 14, 2024 5:00am DETENTION LAB WORK April 17 5:00am LABWORK April 21, 2024 5:00am DETENTION LAB WORK April 24 4:00am LABWORK April 28, 2024 5:00am DETENTION LAB WORK May 01 4:00am DETENTION LAB WORK May 05 5:00am DETENTION LAB WORK May 08, 2024 5:00am DETENTION LAB WORK May 09, 2024 4:00am LABWORK May 12, 2024 5: 00am DETENTION LAB WORK May 15, 2024 5:00am DETENTION LAB WORK May 19, 2024 4:00am DETENTION LAB WORK May 20, 2024 5:00am DETENTION LAB WORK May 22, 2024 5:00am LABWORK May 26, 2024 5 :00am DETENTION LAB WORK May 29, 2024 5:00am DETENTION LAB WORK June 02, 2024 5:00am DETENTION LAB WORK June 05, 2024 5:00am LABWORK June 09, 2024 5 :00am DETENTION LAB WORK June 12, 2024 5:00am DETENTION LAB WORK June 16 5:00am DETENTION LAB WORK June 19 5:00am LABWORK June 23, 2024 5:00am DETENTION LAB WORK June 26 5:00am DETENTION LAB WORK June 30 5:00am DETENTION LAB WORK July 03 5:00am DETENTION LAB WORK July 07, 2024 4: 00am LABWORK July 11, 2024 5:00 am LABWORK July 14, 2024 5:0 0am DETENTION LAB WORK July 17, 2024 4 :00am DETENTION LAB WORK July 24, 2024 4 :00am Chief Complaint Admit Date DETENTION LAB WORK April 14, 2024 5:00am DETENTION LAB WORK April 17 5:00am LABWORK April 21, 2024 5:00am DETENTION LAB WORK April 24 4:00am LABWORK April 28, 2024 5:00am DETENTION LAB WORK May 01 4:00am DETENTION LAB WORK May 05 5:00am DETENTION LAB WORK May 08, 2024 5:00am DETENTION LAB WORK May 09, 2024 4:00am LABWORK May 12, 2024 5: 00am DETENTION LAB WORK May 15, 2024 5:00am DETENTION LAB WORK May 19, 2024 4:00am DETENTION LAB WORK May 20, 2024 5:00am DETENTION LAB WORK May 22, 2024 5:00am LABWORK May 26, 2024 5 :00am DETENTION LAB WORK May 29, 2024 5:00am DETENTION LAB WORK June 02, 2024 5:00am DETENTION LAB WORK June 05, 2024 5:00am LABWORK June 09, 2024 5 :00am DETENTION LAB WORK June 12, 2024 5:00am DETENTION LAB WORK June 16 5:00am DETENTION LAB WORK June 19 5:00am LABWORK June 23, 2024 5:00am DETENTION LAB WORK June 26 5:00am DETENTION LAB WORK June 30 5:00am DETENTION LAB WORK July 03 5:00am DETENTION LAB WORK July 07, 2024 4: 00am LABWORK July 11, 2024 5:00 am LABWORK July 14, 2024 5:0 0am DETENTION LAB WORK July 17, 2024 4 :00am DETENTION LAB WORK July 24, 2024 4 :00am LABWORK July 25, 2024 5:0 0am Chief Complaint Admit Date DETENTION LAB WORK April 14, 2024 5:00am DETENTION LAB WORK April 17 5:00am LABWORK April 21, 2024 5:00am DETENTION LAB WORK April 24 4:00am LABWORK April 28, 2024 5:00am DETENTION LAB WORK May 01 4:00am DETENTION LAB WORK May 05 5:00am DETENTION LAB WORK May 08, 2024 5:00am DETENTION LAB WORK May 09, 2024 4:00am LABWORK May 12, 2024 5: 00am DETENTION LAB WORK May 15, 2024 5:00am DETENTION LAB WORK May 19, 2024 4:00am DETENTION LAB WORK May 20, 2024 5:00am DETENTION LAB WORK May 22, 2024 5:00am LABWORK May 26, 2024 5 :00am DETENTION LAB WORK May 29, 2024 5:00am DETENTION LAB WORK June 02, 2024 5:00am DETENTION LAB WORK June 05, 2024 5:00am LABWORK June 09, 2024 5 :00am DETENTION LAB WORK June 12, 2024 5:00am DETENTION LAB WORK June 16 5:00am DETENTION LAB WORK June 19 5:00am LABWORK June 23, 2024 5:00am DETENTION LAB WORK June 26 5:00am DETENTION LAB WORK June 30 5:00am DETENTION LAB WORK July 03 5:00am DETENTION LAB WORK July 07, 2024 4: 00am LABWORK July 11, 2024 5:00 am LABWORK July 14, 2024 5:0 0am DETENTION LAB WORK July 17, 2024 4 :00am DETENTION LAB WORK July 21, 2024 5 :00am DETENTION LAB WORK July 24, 2024 4 :00am LABWORK July 25, 2024 5:0 0am DETENTION LAB WORK July 31, 2024 4 :00am Chief Complaint Admit Date DETENTION LAB WORK April 17 5:00am LABWORK April 21, 2024 5:00am DETENTION LAB WORK April 24 4:00am LABWORK April 28, 2024 5:00am DETENTION LAB WORK May 01 4:00am DETENTION LAB WORK May 05 5:00am DETENTION LAB WORK May 08, 2024 5:00am DETENTION LAB WORK May 09, 2024 4:00am LABWORK May 12, 2024 5: 00am DETENTION LAB WORK May 15, 2024 5:00am DETENTION LAB WORK May 19, 2024 4:00am DETENTION LAB WORK May 20, 2024 5:00am DETENTION LAB WORK May 22, 2024 5:00am LABWORK May 26, 2024 5 :00am DETENTION LAB WORK May 29, 2024 5:00am DETENTION LAB WORK June 02, 2024 5:00am DETENTION LAB WORK June 05, 2024 5:00am LABWORK June 09, 2024 5 :00am DETENTION LAB WORK June 12, 2024 5:00am DETENTION LAB WORK June 16 5:00am DETENTION LAB WORK June 19 5:00am LABWORK June 23, 2024 5:00am DETENTION LAB WORK June 26 5:00am DETENTION LAB WORK June 30 5:00am DETENTION LAB WORK July 03 5:00am DETENTION LAB WORK July 07, 2024 4: 00am LABWORK July 11, 2024 5:00 am LABWORK July 14, 2024 5:0 0am DETENTION LAB WORK July 17, 2024 4 :00am DETENTION LAB WORK July 21, 2024 5 :00am DETENTION LAB WORK July 24, 2024 4 :00am LABWORK July 25, 2024 5:0 0am DETENTION LAB WORK July 28, 2024 5 :00am DETENTION LAB WORK July 31, 2024 4 :00am Chief Complaint Admit Date DETENTION LAB WORK April 24 4:00am LABWORK April 28, 2024 5:00am DETENTION LAB WORK May 01 4:00am DETENTION LAB WORK May 05 5:00am DETENTION LAB WORK May 08, 2024 5:00am DETENTION LAB WORK May 09, 2024 4:00am LABWORK May 12, 2024 5: 00am DETENTION LAB WORK May 15, 2024 5:00am DETENTION LAB WORK May 19, 2024 4:00am DETENTION LAB WORK May 20, 2024 5:00am DETENTION LAB WORK May 22, 2024 5:00am LABWORK May 26, 2024 5 :00am DETENTION LAB WORK May 29, 2024 5:00am DETENTION LAB WORK June 02, 2024 5:00am DETENTION LAB WORK June 05, 2024 5:00am LABWORK June 09, 2024 5 :00am DETENTION LAB WORK June 12, 2024 5:00am DETENTION LAB WORK June 16 5:00am DETENTION LAB WORK June 19 5:00am LABWORK June 23, 2024 5:00am DETENTION LAB WORK June 26 5:00am DETENTION LAB WORK June 30 5:00am DETENTION LAB WORK July 03 5:00am DETENTION LAB WORK July 07, 2024 4: 00am LABWORK July 11, 2024 5:00 am LABWORK July 14, 2024 5:0 0am DETENTION LAB WORK July 17, 2024 4 :00am DETENTION LAB WORK July 21, 2024 5 :00am DETENTION LAB WORK July 24, 2024 4 :00am LABWORK July 25, 2024 5:0 0am DETENTION LAB WORK July 28, 2024 5 :00am DETENTION LAB WORK July 31, 2024 4 :00am LABWORK August 04, 2024 5:0 0am Chief Complaint Admit Date DETENTION LAB WORK May 15, 2024 5:00am DETENTION LAB WORK May 19, 2024 4:00am DETENTION LAB WORK May 20, 2024 5:00am DETENTION LAB WORK May 22, 2024 5:00am LABWORK May 26, 2024 5 :00am DETENTION LAB WORK May 29, 2024 5:00am DETENTION LAB WORK June 02, 2024 5:00am DETENTION LAB WORK June 05, 2024 5:00am LABWORK June 09, 2024 5 :00am DETENTION LAB WORK June 12, 2024 5:00am DETENTION LAB WORK June 16 5:00am DETENTION LAB WORK June 19 5:00am LABWORK June 23, 2024 5:00am DETENTION LAB WORK June 26 5:00am DETENTION LAB WORK June 30 5:00am DETENTION LAB WORK July 03 5:00am DETENTION LAB WORK July 07, 2024 4: 00am LABWORK July 11, 2024 5:00 am LABWORK July 14, 2024 5:0 0am DETENTION LAB WORK July 17, 2024 4 :00am DETENTION LAB WORK July 21, 2024 5 :00am DETENTION LAB WORK July 24, 2024 4 :00am LABWORK July 25, 2024 5:0 0am DETENTION LAB WORK July 28, 2024 5 :00am DETENTION LAB WORK July 31, 2024 4 :00am LABWORK August 04, 2024 5:0 0am LABWORK August 07, 2024 5:00 am DETENTION LAB WORK August 11, 2024 5: 00am DETENTION LAB WORK August 14, 2024 5 :00am DETENTION LAB WORK August 18, 2024 5 :00am Chief Complaint Admit Date DETENTION LAB WORK May 20, 2024 5:00am DETENTION LAB WORK May 22, 2024 5:00am LABWORK May 26, 2024 5 :00am DETENTION LAB WORK May 29, 2024 5:00am DETENTION LAB WORK June 02, 2024 5:00am DETENTION LAB WORK June 05, 2024 5:00am LABWORK June 09, 2024 5 :00am DETENTION LAB WORK June 12, 2024 5:00am DETENTION LAB WORK June 16 5:00am DETENTION LAB WORK June 19 5:00am LABWORK June 23, 2024 5:00am DETENTION LAB WORK June 26 5:00am DETENTION LAB WORK June 30 5:00am DETENTION LAB WORK July 03 5:00am DETENTION LAB WORK July 07, 2024 4: 00am LABWORK July 11, 2024 5:00 am LABWORK July 14, 2024 5:0 0am DETENTION LAB WORK July 17, 2024 4 :00am DETENTION LAB WORK July 21, 2024 5 :00am DETENTION LAB WORK July 24, 2024 4 :00am LABWORK July 25, 2024 5:0 0am DETENTION LAB WORK July 28, 2024 5 :00am DETENTION LAB WORK July 31, 2024 4 :00am LABWORK August 04, 2024 5:0 0am LABWORK August 07, 2024 5:00 am DETENTION LAB WORK August 11, 2024 5: 00am DETENTION LAB WORK August 14, 2024 5 :00am DETENTION LAB WORK August 18, 2024 5 :00am LABWORK August 28, 2024 5:0 0am Chief Complaint Admit Date DETENTION LAB WORK May 22, 2024 5:00am LABWORK May 26, 2024 5 :00am DETENTION LAB WORK May 29, 2024 5:00am DETENTION LAB WORK June 02, 2024 5:00am DETENTION LAB WORK June 05, 2024 5:00am LABWORK June 09, 2024 5 :00am DETENTION LAB WORK June 12, 2024 5:00am DETENTION LAB WORK June 16 5:00am DETENTION LAB WORK June 19 5:00am LABWORK June 23, 2024 5:00am DETENTION LAB WORK June 26 5:00am DETENTION LAB WORK June 30 5:00am DETENTION LAB WORK July 03 5:00am DETENTION LAB WORK July 07, 2024 4: 00am LABWORK July 11, 2024 5:00 am LABWORK July 14, 2024 5:0 0am DETENTION LAB WORK July 17, 2024 4 :00am DETENTION LAB WORK July 21, 2024 5 :00am DETENTION LAB WORK July 24, 2024 4 :00am LABWORK July 25, 2024 5:0 0am DETENTION LAB WORK July 28, 2024 5 :00am DETENTION LAB WORK July 31, 2024 4 :00am LABWORK August 04, 2024 5:0 0am LABWORK August 07, 2024 5:00 am DETENTION LAB WORK August 11, 2024 5: 00am DETENTION LAB WORK August 14, 2024 5 :00am DETENTION LAB WORK August 18, 2024 5 :00am DETENTION LAB WORK August 21, 2024 5 :00am LABWORK August 28, 2024 5:0 0am LABWORK September 01, 2024 5:0 0am Chief Complaint Admit Date DETENTION LAB WORK June 05, 2024 5:00am LABWORK June 09, 2024 5 :00am DETENTION LAB WORK June 12, 2024 5:00am DETENTION LAB WORK June 16 5:00am DETENTION LAB WORK June 19 5:00am LABWORK June 23, 2024 5:00am DETENTION LAB WORK June 26 5:00am DETENTION LAB WORK June 30 5:00am DETENTION LAB WORK July 03 5:00am DETENTION LAB WORK July 07, 2024 4: 00am LABWORK July 11, 2024 5:00 am LABWORK July 14, 2024 5:0 0am DETENTION LAB WORK July 17, 2024 4 :00am DETENTION LAB WORK July 21, 2024 5 :00am DETENTION LAB WORK July 24, 2024 4 :00am LABWORK July 25, 2024 5:0 0am DETENTION LAB WORK July 28, 2024 5 :00am DETENTION LAB WORK July 31, 2024 4 :00am LABWORK August 04, 2024 5:0 0am LABWORK August 07, 2024 5:00 am DETENTION LAB WORK August 11, 2024 5: 00am DETENTION LAB WORK August 14, 2024 5 :00am DETENTION LAB WORK August 18, 2024 5 :00am DETENTION LAB WORK August 21, 2024 5 :00am DETENTION LAB WORK August 25, 2024 4 :00am LABWORK August 28, 2024 5:0 0am LABWORK September 01, 2024 5:0 0am LABWORK September 04, 2024 5:00am Chief Complaint Admit Date DETENTION LAB WORK June 05, 2024 5:00am LABWORK June 09, 2024 5 :00am DETENTION LAB WORK June 12, 2024 5:00am DETENTION LAB WORK June 16 5:00am DETENTION LAB WORK June 19 5:00am LABWORK June 23, 2024 5:00am DETENTION LAB WORK June 26 5:00am DETENTION LAB WORK June 30 5:00am DETENTION LAB WORK July 03 5:00am DETENTION LAB WORK July 07, 2024 4: 00am LABWORK July 11, 2024 5:00 am LABWORK July 14, 2024 5:0 0am DETENTION LAB WORK July 17, 2024 4 :00am DETENTION LAB WORK July 21, 2024 5 :00am DETENTION LAB WORK July 24, 2024 4 :00am LABWORK July 25, 2024 5:0 0am DETENTION LAB WORK July 28, 2024 5 :00am DETENTION LAB WORK July 31, 2024 4 :00am LABWORK August 04, 2024 5:0 0am LABWORK August 07, 2024 5:00 am DETENTION LAB WORK August 11, 2024 5: 00am DETENTION LAB WORK August 14, 2024 5 :00am DETENTION LAB WORK August 18, 2024 5 :00am DETENTION LAB WORK August 21, 2024 5 :00am DETENTION LAB WORK August 25, 2024 4 :00am LABWORK August 28, 2024 5:0 0am LABWORK September 01, 2024 5:0 0am LABWORK September 04, 2024 5:00am LABWORK September 15, 2024 5:00a m Chief Complaint Admit Date DETENTION LAB WORK June 19 5:00am LABWORK June 23, 2024 5:00am DETENTION LAB WORK June 26 5:00am DETENTION LAB WORK June 30 5:00am DETENTION LAB WORK July 03 5:00am DETENTION LAB WORK July 07, 2024 4: 00am LABWORK July 11, 2024 5:00 am LABWORK July 14, 2024 5:0 0am DETENTION LAB WORK July 17, 2024 4 :00am DETENTION LAB WORK July 21, 2024 5 :00am DETENTION LAB WORK July 24, 2024 4 :00am LABWORK July 25, 2024 5:0 0am DETENTION LAB WORK July 28, 2024 5 :00am DETENTION LAB WORK July 31, 2024 4 :00am LABWORK August 04, 2024 5:0 0am LABWORK August 07, 2024 5:00 am DETENTION LAB WORK August 11, 2024 5: 00am DETENTION LAB WORK August 14, 2024 5 :00am DETENTION LAB WORK August 18, 2024 5 :00am DETENTION LAB WORK August 21, 2024 5 :00am DETENTION LAB WORK August 25, 2024 4 :00am LABWORK August 28, 2024 5:0 0am LABWORK September 01, 2024 5:0 0am LABWORK September 04, 2024 5:00am DETENTION LAB WORK September 08, 2024 4:00 am DETENTION LAB WORK September 11, 2024 5:00 am LABWORK September 15, 2024 5:00a m DETENTION LAB WORK September 25, 2024 5:0 0am DETENTION LAB WORK September 30, 2024 4:0 0am Chief Complaint Admit Date DETENTION LAB WORK June 12, 2024 5:00am DETENTION LAB WORK June 16 5:00am DETENTION LAB WORK June 19 5:00am LABWORK June 23, 2024 5:00am DETENTION LAB WORK June 26 5:00am DETENTION LAB WORK June 30 5:00am DETENTION LAB WORK July 03 5:00am DETENTION LAB WORK July 07, 2024 4: 00am LABWORK July 11, 2024 5:00 am LABWORK July 14, 2024 5:0 0am DETENTION LAB WORK July 17, 2024 4 :00am DETENTION LAB WORK July 21, 2024 5 :00am DETENTION LAB WORK July 24, 2024 4 :00am LABWORK July 25, 2024 5:0 0am DETENTION LAB WORK July 28, 2024 5 :00am DETENTION LAB WORK July 31, 2024 4 :00am LABWORK August 04, 2024 5:0 0am LABWORK August 07, 2024 5:00 am DETENTION LAB WORK August 11, 2024 5: 00am DETENTION LAB WORK August 14, 2024 5 :00am DETENTION LAB WORK August 18, 2024 5 :00am DETENTION LAB WORK August 21, 2024 5 :00am DETENTION LAB WORK August 25, 2024 4 :00am LABWORK August 28, 2024 5:0 0am LABWORK September 01, 2024 5:0 0am LABWORK September 04, 2024 5:00am DETENTION LAB WORK September 08, 2024 4:00 am LABWORK September 15, 2024 5:00a m Chief Complaint Admit Date DETENTION LAB WORK July 07, 2024 4: 00am LABWORK July 11, 2024 5:00 am LABWORK July 14, 2024 5:0 0am DETENTION LAB WORK July 17, 2024 4 :00am DETENTION LAB WORK July 21, 2024 5 :00am DETENTION LAB WORK July 24, 2024 4 :00am LABWORK July 25, 2024 5:0 0am DETENTION LAB WORK July 28, 2024 5 :00am DETENTION LAB WORK July 31, 2024 4 :00am LABWORK August 04, 2024 5:0 0am LABWORK August 07, 2024 5:00 am DETENTION LAB WORK August 11, 2024 5: 00am DETENTION LAB WORK August 14, 2024 5 :00am DETENTION LAB WORK August 18, 2024 5 :00am DETENTION LAB WORK August 21, 2024 5 :00am DETENTION LAB WORK August 25, 2024 4 :00am LABWORK August 28, 2024 5:0 0am LABWORK September 01, 2024 5:0 0am LABWORK September 04, 2024 5:00am DETENTION LAB WORK September 08, 2024 4:00 am DETENTION LAB WORK September 11, 2024 5:00 am LABWORK September 15, 2024 5:00a m DETENTION LAB WORK September 18, 2024 5:0 0am DETENTION LAB WORK September 22, 2024 5:0 0am DETENTION LAB WORK September 25, 2024 5:0 0am DETENTION LAB WORK September 30, 2024 4:0 0am DETENTION LAB WORK October 02, 2024 5:0 0am DETENTION LAB WORK October 09, 2024 5:0 0am Chief Complaint Admit Date DETENTION LAB WORK October 09, 2024 5:0 0am LABWORK October 13, 2024 5:00a m DETENTION LAB WORK October 16, 2024 5: 00am DETENTION LAB WORK October 20, 2024 4: 00am DETENTION LAB WORK October 23, 2024 5: 00am DETENTION LAB WORK October 27, 2024 4: 00am DETENTION LAB WORK October 30, 2024 6: 35am LABWORK November 03, 2024 5:00 am DETENTION LAB WORK November 06, 2024 4:0 0am DETENTION LAB WORK November 10, 2024 4:0 0am DETENTION LAB WORK November 13, 2024 5: 00am DETENTION LAB WORK November 17, 2024 5: 00am DETENTION LAB WORK November 20, 2024 5: 00am DETENTION LAB WORK November 24, 2024 5: 00am DETENTION LAB WORK November 27, 2024 5: 00am LABWORK November 28, 2024 5:00 am LABWORK December 01, 2024 5:00 am DETENTION LAB WORK December 02, 2024 4: 00am DETENTION LAB WORK December 04, 2024 5: 00am DETENTION LAB WORK December 08, 2024 5 :00am LABWORK December 11, 2024 6:0 0am DETENTION LAB WORK December 15, 2024 4:00am DETENTION LAB WORK December 18, 2024 5:00am DETENTION LAB WORK December 22, 2024 4:00am LABWORK December 24, 2024 5: 00am DETENTION LAB WORK December 25, 2024 5:00am DETENTION LAB WORK December 26, 2024 5:00am LABWORK December 29, 2024 5: 00am DETENTION LAB WORK January 01, 2025 5:00am DETENTION LAB WORK January 06 5:00am LABWORK January 08, 2025 5:00am DETENTION LAB WORK January 12 4:00am DETENTION LAB WORK January 15 5:00am LABWORK January 19, 2025 5:00am DETENTION LAB WORK January 26 4:00am Chief Complaint Admit Date LABWORK November 03, 2024 5:00 am DETENTION LAB WORK November 06, 2024 4:0 0am DETENTION LAB WORK November 10, 2024 4:0 0am DETENTION LAB WORK November 13, 2024 5: 00am DETENTION LAB WORK November 17, 2024 5: 00am DETENTION LAB WORK November 20, 2024 5: 00am DETENTION LAB WORK November 24, 2024 5: 00am DETENTION LAB WORK November 27, 2024 5: 00am LABWORK November 28, 2024 5:00 am LABWORK December 01, 2024 5:00 am DETENTION LAB WORK December 02, 2024 4: 00am DETENTION LAB WORK December 04, 2024 5: 00am DETENTION LAB WORK December 08, 2024 5 :00am LABWORK December 11, 2024 6:0 0am DETENTION LAB WORK December 15, 2024 4:00am DETENTION LAB WORK December 18, 2024 5:00am DETENTION LAB WORK December 22, 2024 4:00am LABWORK December 24, 2024 5: 00am DETENTION LAB WORK December 25, 2024 5:00am DETENTION LAB WORK December 26, 2024 5:00am LABWORK December 29, 2024 5: 00am DETENTION LAB WORK January 01, 2025 5:00am DETENTION LAB WORK January 06 5:00am LABWORK January 08, 2025 5:00am DETENTION LAB WORK January 12 4:00am DETENTION LAB WORK January 15 5:00am LABWORK January 19, 2025 5:00am DETENTION LAB WORK January 22 5:00am DETENTION LAB WORK January 26 4:00am DETENTION LAB WORK January 29 7:30am DETENTION LAB WORK February 02 4:00am DETENTION LAB WORK February 05, 2025 5:00am DETENTION LAB WORK February 16, 2025 4:00am Reason for Referral Specialty Diagnoses / Procedures Referred By Contac t Referred To Contact Urology Diagnoses Other fatigue Lanette Munguia DO [address] [place] [address] [facility] [address] [place] [address] Referral ID Status Reason Start Date Expiration Date V isits Requested Visits Authorized [id number] Open Specialty Services Required 11/01/2021 11/01/2022 1 1 Scheduling Instructions [facility] [place] [id number] Specialty Diagnoses / Procedures Referred By Contac t Referred To Contact IP Unit Diagnoses Heel ulceration, left, with unspecified severity (HCC) [place] [address] [place] [address] [facility] [address] [place] [address] Referral ID Status Reason Start Date Expiration Date V isits Requested Visits Authorized [id number] Open Specialty Services Required 12/22/2021 12/22/2022 1 1 Scheduling Instructions [facility]ound [facility]/Hyper[facility] - [facility] [address] [place] [address] Comments Please use the parking lot located on [address] or [employer]. There are handicap parking spots located in a small lot beside the wound care entrance off of [address]. Please be advised there is a small incline from those handicap spots to our main door. Bring photo ID and insurance card to photocopy. Wear loose fitting clothing (to easily access wound). Bring list of medications (or can be sent by office). Check in at Registration for your first visit. Please call us directly with any questions [phone]. We look forward to helping you heal. Specialty Diagnoses / Procedures Referred By Aki kumari Referred To Contact Radiology Diagnoses Left flank pain Calculus of ureter Procedures CT abdomen pelvis wo IV contrast Rebecca Buck MD [address] [place] [address] Referral ID Status Reason Start Date Expiration Date V isits Requested Visits Authorized [id number] Pending Review 08/13/2023 08/12/2024 1 1 Referral ID Status Reason Start Date Expiration Date Visits Re quested Visits Authorized [id number] Closed 08/17/2023 09/16/2023 1 1 Additional Source Comments Source Comments (unrecognize d section and content) In the event this informatio n is protected by the Federal Confidentiality of Alcohol and Drug Abuse Patient Records regulations: The Federal rules restrict any use of the information to criminally investigate or prosecute any alcohol or drug abuse patient.[facility] the event this information is protected by the Federal Confidentiality of Alcohol and Drug Abuse Patient Records regulations: The Federal rules restrict any use of the information to criminally investigate or prosecute any alcohol or drug abuse patient.[facility] (unrecognized sect ion and content) No Status Records FoundNo Status Records FoundNo Status Records FoundNo Status Records FoundNo Status Records FoundNo Status Records FoundNo Status Records FoundNo Status Records FoundNo Status Records FoundNo Status Records Found INFORMATION SOURCE (unrecogn ized section and content) DATE CREATED AUTHOR 05/20/2021 [facility] DATE CREATED AUTHOR AUTHOR'S ORGANIZ ATION 06/07/2021 [facility] DATE CREATED AUTHOR AUTHOR'S ORGANIZ ATION 08/02/2021 [facility] DATE CREATED AUTHOR AUTHOR'S ORGANIZ ATION 12/09/2021 [facility] DATE CREATED AUTHOR AUTHOR'S ORGANIZ ATION 12/29/2021 [facility] DATE CREATED AUTHOR AUTHOR'S ORGANIZ ATION 02/04/2022 [facility] DATE CREATED AUTHOR AUTHOR'S ORGANIZ ATION 03/03/2022 [facility] DATE CREATED AUTHOR AUTHOR'S ORGANIZ ATION 09/15/2023 [facility] DATE CREATED AUTHOR AUTHOR'S ORGANIZ ATION 03/18/2025 [facility] Reason for Visit (unrecogniz ed section and content) Reason Comments Missed Appointment Reason Comments Leg Swelling Blood clots Reason Comments Altered Mental Status Pt presents to ED via [facility] for complaint listed. Pt is from [facility]. Pt's LKW was 1000 hours today. Per EMS, pt had a - [place]. Pt denies CP, SOB, and N/V. Pt seems slow to respond, slightly confused at this time. Reason Comments Osteomyelitis Patient from [facility], facility did xrays on left lower [...] Buck MD [address] [place] [address] Referral ID Status Reason Start Date Expiration Date Visits Re quested Visits Authorized [id number] Closed 08/17/2023 09/16/2023 1 1 Reason Comments [...] 24, 2024 End: April 24, 2024 Dr. Knvg NOVAK MD Attending Provider Active Start: April [...] Active Member Role Status Dates Dr. Monika tSaley MD Primary Care Provider Active Start: August [...] Status Dates Carlos NOVAK Attending Provider Active Bull Bucker Relationship Specialty Start Date End Date Mateus Burris [address] [place] [address] PCP - General Family Practice 11/12/19 Bull Bucker Relationship Specialty [place] [address] [place] [address] PCP - General Family Medicine 09/09/20 Bull Bucker Relationship Specialty [place] [address] [place] [address] PCP - General Family Medicine 09/09/20 Bull Bucker Relationship Specialty [place] [address] [place] [address] PCP - General Family Medicine 09/09/20 Bull Bucker Relationship Specialty Start Date End Date Carlos Cavazos MD [address] [facility] [address] [place] [address] PCP - General Internal Medicine 02/20/22 Team [...] Monika Staley MD Primary Care Provider Active Bull Bucker Relationship Specialty Start Date End Date Carlos Cavazos [address] [place] [phone] PCP - General 12/21/21 Rebecca Buck MD [address] [place] [address] [address] [place] [address] Surgeon Urology 06/25/23 Team Status: Inactive Member [...] OLS Attending Provider, Referring Provi lupillo Active Bull Bucker Relationship Specialty Start Date End Date Carlos Cavazos [address] [place] [phone] PCP - General 12/21/21 Rebecca Buck MD [address] [address] Surgeon Urology 06/25/23 Bull Bucker Relationship Specialty Start Date End Date Carlos Cavazos [address] [place] [phone] PCP - General 12/21/21 Rebecca Buck MD [address] [address] Surgeon Urology 06/25/23 Bull Bucker Relationship Specialty Start Date End Date Carlos Cavazos [address] [place] [phone] PCP - General 12/21/21 Rebecca Buck MD [address] [address] Surgeon Urology 06/25/23 Bull Bucker Relationship Specialty Start Date End Date Carlos Cavazos [address] [place] [phone] PCP - General 12/21/21 Rebecca Buck MD [address] [address] Surgeon Urology 06/25/23 Bull Bucker Relationship Specialty Start Date End Date Carlos Cavazos [address] [place] [phone] PCP - General 12/21/21 Rebecca Buck MD [address] [address] Surgeon Urology 06/25/23 Bull Bucker Relationship Specialty Start Date End Date Carlos Cavazos [address] [place] [phone] PCP - General 12/21/21 Rebecca Buck MD [address] [address] Surgeon Urology 06/25/23 Team Status: Inactive Member [...] Provider Active Start: July 17, 2024 Karon NOAVK MD Attending Provider Active Start: July 17, [...] Inactive Member Role/Relationship Status Dates Dr. Monika Staely [...] mg, Oral, ONCE Warfarin, 1 dose, On [facility] 10/29/21 at 1800, Indication of Use: [...] BE BASED ON THE PRIMARY CLINICAL RECORDS. [facility] [employer] [facility]. provides no warranty or guarantee of the accuracy or completeness of information in this document.
[2025-04-29 08:41] LABS: Prothrombin Time (Protime)PT. 36.6 SECONDS (11.7-14.9)
== END ==
LOC: OLS.SANC 04:00
PROVIDERS: PCP General Practice
DX: Z79.899 Other long term (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 (principal); Z79.01 Long term (current) use of anticoagulants
CPT/HCPCS: 36415; 85610

== ENCOUNTER → 2025-05-05 05:00 | Outpatient (REF) | payer MEDICAID, SELFPAY ==
--- OUTSIDE RECORDS SUMMARY | 2025-05-05 04:48 | XMS RPT_ITS | CCD ---
Author Organization [facility] Care Team Providers Care Web Ui Designer Name Role Phone Mateus Burris Primary Care [...] Unavailable Mateus Burris Primary Care Provider [phone] Monika Staley MD Primary Care Provider Monika [...] L Unavailable Quinn VALLADARES, Rebecca L Unavailable [phone] REBECCA BUCK Attending Unavailable REBECCA BUCK Referring Unavailable CARLOS CAVAZOS Primary Care Unavailable REBECCA BUCK Attending Unavailable KENNY, CARLOS Primary Care Unavailable REBECCA BUCK Attending Unavailable KENNY, CARLOS Primary Care Unavailable Luís VALLADARES, Dr. Monika Horner Primary Care Provider [facility] Attending Provider [phone] Carlos Nelson Attending Provider Jonh Pascual MD, [...] Unava ilable Karon Shah Attending Unavail able Lusí, Shiela Primary Care Unavailable Davidkkminglla Karon NOVAK [...] OLS, Mahaveer Attending Unavail able [facility] [place] Attending Unavai lable Luís, Shiela Primary Care Unavailable Crisostomo OLS, Babbaljeet Attending Unavailable Luís, Shiela Primary Care Unavailable [facility] [place] Attending Unavai lable Luís, Shiela Primary Care [...] able Mukkamalla OLS, Mahaveer Attending Unavail able Lusí, [...] Unavailable MukkKaron Hoover Attending Unavail able Luís, [facility] Primary Care Unavailable NubiaKaron Stacy Attending Unavail able Luís, Shiela Primary Care Unavailable NubiaKaron Stacy Attending Unavail able Luís, [facility] Primary Care Unavailable MaribelCarlos Flood Attending Unavailable [place], [facility] Unavailable Allergies Allergy Classification Reported Allergen(s) Allergy Type Date of Onset Reaction(s) Facility (13 sources) [facility] Work Phone: (15 sources) Alcohol Propensity to adverse reactions to drug 3 Rash, Hives, Other: See Comments, Other [facility] Work Phone: (1 source) Latex Drug Allergy 0 Rash [facility] (8 sources) Cortisone Drug Allergy 2 [facility] (7 sources) Latex Allergy to substance 0 Rash [facility] Medications Current Medications Medication Drug Class(es) Dates Sig (Normalized) Sig (Original) Acetaminophen (10 sources) Start: 10-21-2021 acetaminophen (TYLENOL) tablet 650 mg Start: 09-14-2021 acetaminophen (TYLENOL) 325 MG tablet 650 mg every 6 hours as needed 0 09/14/2021 Active take 2 tablets by [facility] every eight hours acetaminophen (TYLENOL) 325 [...] Start: 11-01-2021 take 1 capsule by mo [facility] once daily tamsulosin (FLOMAX) 0.4 [...] Comment on above: [facility]. Antacid TABS (6 sources) [...] Comment on above: Take 1 capsule by [facility] three times daily. Complete Multi-Vitamin CHEW [...] once daily. Pentoxifylline (1 source) Blood Viscosity Manager Protein PENTOXIFYLLINE ORAL Take by mouth. 0 Active Comment on above: Take by mouth. petrolatum 0.41 mg/mg topical ointment (1 source) Start : 08-20 white petrolatum (AQUAPHOR) 41 % topical ointment Apply to affected area once daily. 0 08/20/2021 Active Comment on above: Apply to affected ar ea once daily. 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, [address] PT Coag (PPP) [Time] 25.1 s High 11.7-14.[address] [facility] Comment on above: Order Comment: 411-2 Performed By: #### L 300.3900 ####[facility] [address] [place], [address] Prothrombin Time w/INRon INR Coag (PPP) [Relative time] 2.3 {INR} Normal [facility] Comment on above: Order Comment: 411-2 Performed By: #### L 300.3900 ####[facility] [address] [place], [address] PT Coag (PPP) [Time] 25.5 s High 11.7-14.[address] [facility] Comment on above: Order Comment: 411-2 Performed By: #### L 300.3900 ####[facility] [address] [place], [address] Prothrombin Time w/INRon INR Coag (PPP) [Relative time] 2.0 {INR} Normal [facility] Comment on above: Order Comment: 411.2 Performed By: #### L 300.3900 ####[facility] [address] [place], [address] PT Coag (PPP) [Time] 22.8 s High 11.7-14.[address] [facility] Comment on above: Order Comment: 411.2 Performed By: #### L 300.3900 ####[facility] [address] [place], [address] Prothrombin Time w/INRon INR Coag (PPP) [Relative time] 1.7 {INR} Normal [facility] Comment on above: Order Comment: 411-2 Performed By: #### L 300.3900 ####[facility] [address] [place], [address] PT Coag (PPP) [Time] 20.5 s High 11.7-14.[address] [facility] Comment on above: Order Comment: 411-2 Performed By: #### L 300.3900 ####[facility] [address] [place], [address] Prothrombin Time w/INRon INR Coag (PPP) [Relative time] 1.5 {INR} Normal [facility] Comment on above: Order Comment: 411.2 Performed By: #### L 300.3900 ####[facility] [address] [place], [address] PT Coag (PPP) [Time] 18.4 s High 11.7-14.[address] [facility] Comment on above: Order Comment: 411.2 Performed By: #### L 300.3900 ####[facility] [address] [place], [address] Prothrombin Time w/INRon INR Coag (PPP) [Relative time] 1.8 {INR} Normal [facility] Comment on above: Order Comment: 411.2 Performed By: #### L 300.3900 ####[facility] [address] [place], [address] PT Coag (PPP) [Time] 21.2 s High 11.7-14.[address] [facility] Comment on above: Order Comment: 411.2 Performed By: #### L 300.3900 ####[facility] [address] [place], [place], [phone] International normalized rat io (INR) calculationOrdered By: Carlos Cavazos on 03-02-2025 INR Coag (Bld) [Relative time] 2.2 {INR} [facility] Prothrombin Time w/INRon INR Coag (PPP) [Relative time] 2.2 {INR} Normal [facility] Comment on above: Order Comment: 411-2 Performed By: #### L 300.3900 ####[facility] [address] [place], [place], [phone] Prothrombin timeOrdered By: Carlos Cavazos on 03-02-2025 PT Coag (PPP) [Time] 25.3 s High 11.7-14.[address] [facility] Comment on above: Order Comment: 411-2 Performed By: #### L 300.3900 ####[facility] [address] [place], [place], [phone] International normalized rat io (INR) calculationOrdered By: Karon Corrales on 02-26-2025 INR Coag (Bld) [Relative time] 2.2 {INR} [facility] Prothrombin Time w/INRon INR Coag (PPP) [Relative time] 2.2 {INR} Normal [facility] Comment on above: Order Comment: 411.2 Performed By: #### L 300.3900 ####[facility] [address] [place], [address] PT Coag (PPP) [Time] 24.5 s High 11.7-14.[address] [facility] Comment on above: Order Comment: 411.2 Performed By: #### L 300.3900 ####[facility] [address] [place], [place], [phone] Prothrombin timeOrdered By: Karon Corrales on 02-26-2025 PT Coag (PPP) [Time] 24.5 s High 11.7-14.[address] [facility] International normalized rat io (INR) calculationOrdered By: Karon Corrales on 02-23-2025 INR Coag (Bld) [Relative time] 2.0 {INR} [facility] Prothrombin Time w/INRon INR Coag (PPP) [Relative time] 2.0 {INR} Normal [facility] Comment on above: Order Comment: 411.2 Performed By: #### L 300.3900 ####[facility] [address] [place], [place], [address] PT Coag (PPP) [Time] 23.5 s High 11.7-14.[address] [facility] Comment on above: Order Comment: 411.2 Performed By: #### L 300.3900 ####[facility] [address] [place], [place], [address] Prothrombin timeOrdered By: Karon Corrales on 02-23-2025 PT Coag (PPP) [Time] 23.5 s High 11.7-14.[address] [facility] International normalized rat io (INR) calculationOrdered By: Karon Corrales on 02-19-2025 INR Coag (Bld) [Relative time] 1.9 {INR} [facility] Prothrombin Time w/INRon INR Coag (PPP) [Relative time] 1.9 {INR} Normal [facility] Comment on above: Order Comment: 411.2 Performed By: #### L 300.3900 ####[facility] [address] [place], [address]) PT Coag (PPP) [Time] 21.8 s High 11.7-14.[address] [facility] Comment on above: Order Comment: 411.2 Performed By: #### L 300.3900 ####[facility] [address] [place], [place], [address] Prothrombin timeOrdered By: Karon Corrales on 02-19-2025 PT Coag (PPP) [Time] 21.8 s High 11.7-14.[address] [facility] International normalized rat io (INR) calculationOrdered By: Karon Corrales on 02-16-2025 INR Coag (Bld) [Relative time] 1.5 {INR} [facility] Prothrombin Time w/INRon INR Coag (PPP) [Relative time] 1.5 {INR} Normal [facility] Comment on above: Order Comment: 411.2 Performed By: #### L 300.3900 ####[facility] [address] [place], [place], [address] PT Coag (PPP) [Time] 18.6 s High 11.7-14.[address] [facility] Comment on above: Order Comment: 411.2 Performed By: #### L 300.3900 ####[facility] [address] [place], [place], [address] Prothrombin timeOrdered By: Karon Corrales on 02-16-2025 PT Coag (PPP) [Time] 18.6 s High 11.7-14.[address] [facility] International normalized rat io (INR) calculationOrdered By: Karon Corrales on 02-12-2025 INR Coag (Bld) [Relative time] 2.5 {INR} [facility] Prothrombin Time w/INRon INR Coag (PPP) [Relative time] 2.5 {INR} Normal [facility] Comment on above: Order Comment: 411.2 Performed By: #### L 300.3900 ####[facility] [address], [address] PT Coag (PPP) [Time] 27.5 s High 11.7-14.[address] [facility] Comment on above: Order Comment: 411.2 Performed By: #### L 300.3900 ####[facility] [address] [place], [address] Prothrombin timeOrdered By: Karon Corrales on 02-12-2025 PT Coag (PPP) [Time] 27.5 s High 11.7-14.[address] [facility] International normalized rat io (INR) calculationOrdered By: Carlos Cavazos on 02-09-2025 INR Coag (Bld) [Relative time] 2.5 {INR} [facility] Prothrombin Time w/INRon INR Coag (PPP) [Relative time] 2.5 {INR} Normal [facility] Comment on above: Order Comment: 411-2 Performed By: #### L 300.3900 ####[facility] [address] [place], [address] INR Normal [facility] Comment on above: Order Comment: 411.2 Result Comment: MISS ING TUBE Performed By: #### L 300.3900 ####[facility] [address] [place], [address] PROTIME Normal 11.7-14.9 [facility] Comment on above: Order Comment: 411.2 Result Comment: MISS ING TUBE Performed By: #### L 300.3900 ####[facility] [address] [place], [address] Prothrombin timeOrdered By: Carlos Cavazos on 02-09-2025 PT Coag (PPP) [Time] 27.2 s High 11.7-14.[address] [facility] Comment on above: Order Comment: 411-2 Performed By: #### L 300.3900 ####[facility] [address] [place], [address] International normalized rat io (INR) calculationOrdered By: Karon Corrales on 02-05-2025 INR Coag (Bld) [Relative time] 2.5 {INR} [facility] Prothrombin Time w/INRon INR Coag (PPP) [Relative time] 2.5 {INR} Normal [facility] Comment on above: Order Comment: 411.2 Performed By: #### L 300.3900 ####[facility] [address] [place], [address] PT Coag (PPP) [Time] 27.6 s High 11.7-14.[address] [facility] Comment on above: Order Comment: 411.2 Performed By: #### L 300.3900 ####[facility] [address] [place], [place], [phone] Prothrombin timeOrdered By: Karon Corrales on 02-05-2025 PT Coag (PPP) [Time] 27.6 s High 11.7-14.[address] [facility] International normalized rat io (INR) calculationOrdered By: Karon Corrales on 02-02-2025 INR Coag (Bld) [Relative time] 2.4 {INR} [facility] Prothrombin Time w/INRon INR Coag (PPP) [Relative time] 2.4 {INR} Normal [facility] Comment on above: Order Comment: 411.2 Performed By: #### L 300.3900 ####[facility] [address] [place], [address] PT Coag (PPP) [Time] 26.8 s High 11.7-14.[address] [facility] Comment on above: Order Comment: 411.2 Performed By: #### L 300.3900 ####[facility] [address] [place], [place], [phone] Prothrombin timeOrdered By: Karon Corralse on 02-02-2025 PT Coag (PPP) [Time] 26.8 s High 11.7-14.[address] [facility] International normalized rat io (INR) calculationOrdered By: Karon Corrales on 01-29-2025 INR Coag (Bld) [Relative time] 2.7 {INR} [facility] Prothrombin Time w/INRon INR Coag (PPP) [Relative time] 2.7 {INR} Normal [facility] Comment on above: Performed By: #### L 300.3900 ####[facility] [address] [place], [place], [phone]) PT Coag (PPP) [Time] 29.1 s High 11.7-14.[address] [facility] Comment on above: Performed By: #### L 300.3900 ####[facility] [address] [place], [place], [phone]) Prothrombin timeOrdered By: Karon Corrales on 01-29-2025 PT Coag (PPP) [Time] 29.1 s High 11.7-14.[address] [facility] International normalized rat io (INR) calculationOrdered By: Karon Corrales on 01-26-2025 INR Coag (Bld) [Relative time] 2.0 {INR} [facility] Prothrombin Time w/INRon INR Coag (PPP) [Relative time] 2.0 {INR} Normal [facility] Comment on above: Order Comment: 411.2 Performed By: #### L 300.3900 ####[facility] [address] [place], [place], [phone]) PT Coag (PPP) [Time] 23.1 s High 11.7-14.[address] [facility] Comment on above: Order Comment: 411.2 Performed By: #### L 300.3900 ####[facility] [address] [place], [place], [phone]) Prothrombin timeOrdered By: Karon Corrales on 01-26-2025 PT Coag (PPP) [Time] 23.1 s High 11.7-14.[address] [facility] International normalized rat io (INR) calculationOrdered By: Karon Corrales on 01-22-2025 INR Coag (Bld) [Relative time] 2.4 {INR} [facility] Prothrombin Time w/INRon INR Coag (PPP) [Relative time] 2.4 {INR} Normal [facility] Comment on above: Order Comment: 411.2 Performed By: #### L 300.3900 ####[facility] [address] [place], [address] PT Coag (PPP) [Time] 26.6 s High 11.7-14.[address] [facility] Comment on above: Order Comment: 411.2 Performed By: #### L 300.3900 ####[facility] [address] [place], [address] Prothrombin timeOrdered By: Karon Corrales on 01-22-2025 PT Coag (PPP) [Time] 26.6 s High 11.7-14.[address] [facility] International normalized rat io (INR) calculationOrdered By: Carlos Cavazos on 01-19-2025 INR Coag (Bld) [Relative time] 2.7 {INR} [facility] Prothrombin Time w/INRon INR Coag (PPP) [Relative time] 2.7 {INR} Normal [facility] Comment on above: Order Comment: 411-2 Performed By: #### L 300.3900 ####[facility] [address] [place], [address] PT Coag (PPP) [Time] 29.7 s High 11.7-14.[address] [facility] Comment on above: Order Comment: 411-2 Performed By: #### L 300.3900 ####[facility] [address] [place], [address] Prothrombin timeOrdered By: Carlos Cavazos on 01-19-2025 PT Coag (PPP) [Time] 29.7 s High 11.7-14.[address] [facility] International normalized rat io (INR) calculationOrdered By: Karon Corrales on 01-15-2025 INR Coag (Bld) [Relative time] 2.4 {INR} [facility] Prothrombin Time w/INRon INR Coag (PPP) [Relative time] 2.4 {INR} Normal [facility] Comment on above: Order Comment: 411.1 Performed By: #### L 300.3900 ####[facility] [address] [place], [place], [phone] PT Coag (PPP) [Time] 26.6 s High 11.7-14.[address] [facility] Comment on above: Order Comment: 411.1 Performed By: #### L 300.3900 ####[facility] [address] [place], [place], [address] Prothrombin timeOrdered By: Karon Corrales on 01-15-2025 PT Coag (PPP) [Time] 26.6 s High 11.7-14.[address] [facility] KEPPRA (LEVETIRACETAM)on KEPPRA 30.1 ug/mL Normal 10.0-40.0 [facility] Comment on above: Order Comment: 411.1 Result Comment: Perf ormed at: [facility] [address] [id number] Director: Alpesh Vázquez MD, Phone: [phone] Performed By: #### L 7290.0000, P550.4351 ####[facility] [address] [place], [place], [address] International normalized rat io (INR) calculationOrdered By: Karon Corrales on 01-12-2025 INR Coag (Bld) [Relative time] 2.3 {INR} [facility] LevetiracetamOrdered By: Carla Corrales on 01-12-2025 levETIRAcetam [Mass/Vol] 30.1 ug/mL 10.0-40.0 [facility] Comment on above: Performed at: - [facility] [address] [id number] Director: Alpesh Vázquez MD, Phone: [phone] Prothrombin Time w/INRon INR Coag (PPP) [Relative time] 2.3 {INR} Normal [facility] Comment on above: Order Comment: 411.1 Performed By: #### L 3310.0000, L300.3900 ####[facility] [address] [place], [address] PT Coag (PPP) [Time] 26.1 s High 11.7-14.[address] [facility] Comment on above: Order Comment: 411.1 Performed By: #### L 3310.0000, L300.3900 ####[facility] [address] [place], [address] Prothrombin timeOrdered By: Karon Corrales on 01-12-2025 PT Coag (PPP) [Time] 26.1 s High 11.7-14.[address] [facility] KEPPRA (LEVETIRACETAM)on KEPPRA 27.6 ug/mL Normal 10.0-40.0 [facility] Comment on above: Order Comment: 411.1 Result Comment: Perf ormed at: - [facility] [address] [id number] Director: Alpesh Vázquez MD, Phone: [phone] Performed By: #### L 3310.0000, L300.3900 ####[facility] [address] [place], [address] International normalized rat io (INR) calculationOrdered By: Karon Corrales on 01-08-2025 INR Coag (Bld) [Relative time] 2.2 {INR} [facility] Prothrombin Time w/INRon INR Coag (PPP) [Relative time] 2.2 {INR} Normal [facility] Comment on above: Order Comment: 411.1 Performed By: #### L 300.3900 ####[facility] [address] [place], [address] PT Coag (PPP) [Time] 24.5 s High 11.7-14.[address] [facility] Comment on above: Order Comment: 411.1 Performed By: #### L 300.3900 ####[facility] [address] [place], [address] Prothrombin timeOrdered By: Karon Corrales on 01-08-2025 PT Coag (PPP) [Time] 24.5 s High 11.7-14.[address] [facility] International normalized rat io (INR) calculationOrdered By: Karon Corrales on 01-06-2025 INR Coag (Bld) [Relative time] 3.2 {INR} [facility] LevetiracetamOrdered By: Carla Corrales on 01-06-2025 levETIRAcetam [Mass/Vol] 27.6 ug/mL 10.0-40.0 [facility] Comment on above: Performed at: [address] [id number] Director: Alpesh Vázquez MD, Phone: [phone] Prothrombin Time w/INRon INR Coag (PPP) [Relative time] 3.2 {INR} Normal [facility] Comment on above: Order Comment: 411.1 Performed By: #### L 3310.0000, L300.3900 ####[facility] [address] [place], [address] PT Coag (PPP) [Time] 33.1 s High 11.7-14.[address] [facility] Comment on above: Order Comment: 411.1 Performed By: #### L 3310.0000, L300.3900 ####[facility] [address] [place], [place], [address] Prothrombin timeOrdered By: Karon Corrales on 01-06-2025 PT Coag (PPP) [Time] 33.1 s High 11.7-14.[address] [facility] International normalized rat io (INR) calculationOrdered By: Karon Corrales on 01-01-2025 INR Coag (Bld) [Relative time] 2.7 {INR} [facility] Prothrombin Time w/INRon INR Coag (PPP) [Relative time] 2.7 {INR} Normal [facility] Comment on above: Order Comment: 411.1 Performed By: #### L 3003900 ####[facility] [address] [place], [place], [address] Prothrombin timeOrdered By: Karon Corrales on 01-01-2025 PT Coag (PPP) [Time] 29.1 s High 11.7-14.[address] [facility] Comment on above: Order Comment: 411.1 Performed By: #### L [id number] ####[facility] [address] [place], [place], [address] KEPPRA (LEVETIRACETAM)on KEPPRA 31.8 ug/mL Normal 10.0-40.0 [facility] Comment on above: Order Comment: 411-1 Result Comment: [facility]f ormed at: - [facility] [place], [place] [id number] Director: Alpesh Vázquez MD, Phone: [phone] Performed By: #### L 3310.0000, L315.9240 ####[facility] [address] [place], [place], [address] International normalized rat io (INR) calculationOrdered By: Carlos Cavazos on 12-29-2024 INR Coag (Bld) [Relative time] 3.3 {INR} [facility] KEPPRA (LEVETIRACETAM)on KEPPRA 33.3 ug/mL Normal 10.0-40.0 [facility] Comment on above: Order Comment: 411.1 Result Comment: Perf ormed at: [facility] [address] [id number] Director: Alpesh Vázquez MD, Phone: [phone] Performed By: #### L 3310.0000 ####[facility] [address] [facility] [address] LevetiracetamOrdered By: Ted Cavazos on 12-29-2024 levETIRAcetam [Mass/Vol] 31.8 ug/mL 10.0-40.0 [facility] Comment on above: Performed at: [employer] [address] [id number] Director: Alpesh Vázquez MD, Phone: [phone] Prothrombin Time w/INRon INR Coag (PPP) [Relative time] 3.3 {INR} Normal [facility] Comment on above: Order Comment: 411-1 Performed By: #### L 3310.0000, L300.3900 ####[facility] [address] [place], [address] Prothrombin timeOrdered By: Carlos Cavazos on 12-29-2024 PT Coag (PPP) [Time] 34.0 s High 11.7-14.[address] [facility] Comment on above: Order Comment: 411-1 Performed By: #### L 3310.0000, L300.3900 ####[facility] [address] [place], [place], [address] LevetiracetamOrdered By: Carla Corrales on 12-26-2024 levETIRAcetam [Mass/Vol] 33.3 ug/mL 10.0-40.0 [facility] Comment on above: Performed at: [employer] [address], [place] [id number] Director: Alpesh Vázquez MD, Phone: [phone] International normalized rat io (INR) calculationOrdered By: Karon Corrales on 12-25-2024 INR Coag (Bld) [Relative time] 2.8 {INR} [facility] Prothrombin Time w/INRon INR Coag (PPP) [Relative time] 2.8 {INR} Normal [facility] Comment on above: Order Comment: 411.1 Performed By: #### L 300.3900 ####[facility] [address] [place], [address] Prothrombin timeOrdered By: Karon Corrales on 12-25-2024 PT Coag (PPP) [Time] 30.0 s High 11.7-14.[address] [facility] Comment on above: Order Comment: 411.1 Performed By: #### L 300.3900 ####[facility] [address] [place], [address] Anion gap in Serum or Plasma Ordered By: Carlos Cavazos on 12-24-2024 Anion gap [Moles/Vol] 13 mmol/L 09-18 [facility] BUN/creatinine ratioOrdered By: Carlos Cavazos on 12-24-2024 Urea nitrogen/Creatinine [Mass ratio] 19.2 mg/mg 02-23 [facility] Basic Metabolic Profile (BMP )on 12-24-2024 BUN/CRE 19.2 RATIO Normal 02-23 [facility] Comment on above: Order Comment: 411-1 Performed By: #### L 500.2500, L100.0500 ####[facility] [address] [place], [address] Calcium [Mass/Vol] 8.8 mg/dL Normal 7.6-11.0 [facility] Comment on above: Order Comment: 411-1 Performed By: #### L 500.2500, L100.0500 ####[facility] [address] [place], [address] Chloride [Moles/Vol] 103 mmol/L Normal 98-[address] [facility] Comment on above: Order Comment: 411-1 Performed By: #### L 500.2500, L100.0500 ####[facility] [address] [place], [address] CO2 [Moles/Vol] 23.7 mmol/L Normal 21.0-32.0 [facility] Comment on above: Order Comment: 411-1 Performed By: #### L 500.2500, L100.0500 ####[facility] [address] [place], [address] Creatinine [Mass/Vol] 0.82 mg/dL Normal 0.70-1.20 [facility] Comment on above: Order Comment: 411-1 Performed By: #### L 500.2500, L100.0500 ####[facility] [address] [place], [address] GAP 13 Normal 5-15 [facility] Comment on above: Order Comment: 411-1 Performed By: #### L 500.2500, L100.0500 ####[facility] [address] [place], [address] GFR/1.73 sq M.predicted among non-blacks MDRD (S/P/Bld) [Vol rate/Area] 93 mL/min/{1.73_m2} Normal >60 [facility] Comment on above: Order Comment: 411-1 Result Comment: mL/m in/1.73m2 CKD-EPI Creatinine Equation (2020) Performed By: #### L 500.2500, L100.0500 ####[facility] [address] [place], [address] Glucose [Mass/Vol] 88 mg/dL Normal 70-99 [facility] Comment on above: Order Comment: 411-1 Performed By: #### L 500.2500, L100.0500 ####[facility] [address] [place], [address] Potassium [Moles/Vol] 4.2 mmol/L Normal 3.3-5.1 [facility] Comment on above: Order Comment: 411-1 Performed By: #### L 500.2500, L100.0500 ####[facility] [address] [place], [address] Sodium [Moles/Vol] 139 mmol/L Normal 133-145 [facility] Comment on above: Order Comment: 411-1 Performed By: #### L 500.2500, L100.0500 ####[facility] [address] [place], [address] Urea nitrogen [Mass/Vol] 16 mg/dL Normal 4-19 [facility] Comment on above: Order Comment: 411-1 Performed By: #### L 500.2500, L100.0500 ####[facility] [address] [place], [address] CBC-Complete Blood Cnt No Di ffon 12-24-2024 Erythrocyte distribution width (RBC) [Ratio] 15.4 % High 11.6-14.6 [facility] Comment on above: Order Comment: 411-1 Performed By: #### L 500.2500, L100.0500 ####[facility] [address] [place], [address] Hematocrit (Bld) [Volume fraction] 39.8 % Low 40-54 [facility] Comment on above: Order Comment: 411-1 Performed By: #### L 500.2500, L100.0500 ####[facility] [address] [place], [address] Hemoglobin (Bld) [Mass/Vol] 12.4 g/dL Low 13.0-16.5 [facility] Comment on above: Order Comment: 411-1 Performed By: #### L 500.2500, L100.0500 ####[facility] [address] [place], [address] MCH (RBC) [Entitic mass] 26.6 pg Low 27.0-32.0 [facility] Comment on above: Order Comment: 411-1 Performed By: #### L 500.2500, L100.0500 ####[facility] [address] [place], [address] MCHC (RBC) [Mass/Vol] 31.2 g/dL Low 32-36 [facility] Comment on above: Order Comment: 411-1 Performed By: #### L 500.2500, L100.0500 ####[facility] [address] [place], [address] MCV (RBC) [Entitic vol] 85.4 fL Normal 80-94 [facility] Comment on above: Order Comment: 411-1 Performed By: #### L 500.2500, L100.0500 ####[facility] [address] [place], [address] Platelet mean volume (Bld) [Entitic vol] 10.4 fL Normal 6.2-12.0 [facility] Comment on above: Order Comment: 411-1 Performed By: #### L 500.2500, L100.0500 ####[facility] [address] [place], [address] Platelets (Bld) [#/Vol] 290 10*3/uL Normal 150-450 [facility] Comment on above: Order Comment: 411-1 Performed By: #### L 500.2500, L100.0500 ####[facility] [address] [place], [address] RBC (Bld) [#/Vol] 4.66 10*6/uL Normal 4.6-6.2 [facility] Comment on above: Order Comment: 411-1 Performed By: #### L 500.2500, L100.0500 ####[place] [facility] [address] [place], [address] RDW SD 48.1 fl High 35.1-43.9 [facility] Comment on above: Order Comment: 411-1 Performed By: #### L 500.2500, L100.0500 ####[facility] [address] [place], [address] WBC (Bld) [#/Vol] 16.6 10*3/uL High 4.4-11.0 [facility] Comment on above: Order Comment: 411-1 Performed By: #### L 500.2500, L100.0500 ####[facility] [address] [place], [address] Carbon dioxide, total [Moles /volume] in Central venous bloodOrdered By: Carlos Cavazos on 12-24-2024 CO2 [Moles/Vol] 23.7 mmol/L 21.0-32.0 [facility] Chloride assayOrdered By: Sharif Crouch on 12-24-2024 Chloride [Moles/Vol] 103 mmol/L 98-[address] [facility] Erythrocyte distribution wid th ratioOrdered By: Carlos Cavazos on 12-24-2024 Erythrocyte distribution width (RBC) [Ratio] 15.4 % High 11.6-14.6 [facility] Erythrocyte distribution wid th standard deviationOrdered By: Carlos Cavazos on 12-24-2024 Erythrocyte distribution width (RBC) [Ratio] 48.1 fl High 35.1-43.9 [facility] Glomerular filtration rate ( GFR) estimation/1.73 sq m using serum, plasma, or whole bOrdered By: Carlos Cavazos on 12-24-2024 GFR/1.73 sq M.predicted among non-blacks MDRD (S/P/Bld) [Vol rate/Area] 93 mL/min/{1.73_m2} >60 [facility] Comment on above: mL/min/1.73m2 CKD-EP I Creatinine Equation (2020) Hematocrit Auto (Bld) [Volum e fraction]Ordered By: Carlos Cavazos on 12-24-2024 Hematocrit (Bld) [Volume fraction] 39.8 % Low 40-54 [facility] Hemoglobin measurementOrdere d By: Carlos Cavazos on 12-24-2024 Hemoglobin (Bld) [Mass/Vol] 12.4 g/dL Low 13.0-16.5 [facility] MCV (mean corpuscular volume ) determinationOrdered By: Carlos Cavazos on 12-24-2024 MCV (RBC) [Entitic vol] 85.4 fL 80-94 [facility] Mean corpuscular hemoglobin (MCH) determinationOrdered By: Carlos Cavazos on 12-24-2024 MCH (RBC) [Entitic mass] 26.6 pg Low 27.0-32.0 [facility] Mean corpuscular hemoglobin concentration (MCHC) determinationOrdered By: Carlos Cavazos on 12-24-2024 MCHC (RBC) [Mass/Vol] 31.2 g/dL Low 32-36 [facility] Mean platelet volume determi nationOrdered By: Carlos Cavazos on 12-24-2024 Platelet mean volume (Bld) [Entitic vol] 10.4 fL 6.2-12.0 [facility] Platelet countOrdered By: Sharif Crouch on 12-24-2024 Platelets (Bld) [#/Vol] 290 10*3/uL 150-450 [facility] Potassium measurement (mass/ volume)Ordered By: Carlos Cavazos on 12-24-2024 Potassium (Unsp spec) [Mass/Vol] 4.2 mmol/L 3.3-5.1 [facility] RBC Auto (Bld) [#/Vol]Ordere d By: Carlos Cavazos on 12-24-2024 RBC (Bld) [#/Vol] 4.66 10*6/uL 4.6-6.2 [facility] Serum creatinine measurement (mass/volume)Ordered By: Carlos Cavazos on 12-24-2024 Creatinine [Mass/Vol] 0.82 mg/dL 0.70-1.20 [facility] Serum glucose measurement (m ass/volume)Ordered By: Carlos Cavazos on 12-24-2024 Glucose [Mass/Vol] 88 mg/dL 70-99 [facility] Serum or plasma calcium oral urement (mass/volume)Ordered By: Carlos Cavazos on 12-24-2024 Calcium [Mass/Vol] 8.8 mg/dL 7.6-11.0 [facility] Serum or plasma urea nitroge n measurement (mass/volume)Ordered By: Carlos Cavazos on 12-24-2024 Urea nitrogen [Mass/Vol] 16 mg/dL 4-19 [facility] Sodium levelOrdered By: Moe Cavazos on 12-24-2024 Sodium [Moles/Vol] 139 mmol/L 133-145 [facility] White blood cell (WBC) count Ordered By: Carlos Cavazos on 12-24-2024 WBC (Bld) [#/Vol] 16.6 10*3/uL High 4.4-11.0 [facility] International normalized rat io (INR) calculationOrdered By: Karon Corrales on 12-22-2024 INR Coag (Bld) [Relative time] 2.6 {INR} [facility] Prothrombin Time w/INRon INR Coag (PPP) [Relative time] 2.6 {INR} Normal [facility] Comment on above: Order Comment: 411.1 Performed By: #### L 300.9829 ####[facility] [address] [facility] [place], [place], [phone] PT Coag (PPP) [Time] 28.8 s High 11.7-14.[address] [facility] Comment on above: Order Comment: 411.1 Performed By: #### L 300.3900 ####[facility] [address] [facility] [place], [place], [phone] Prothrombin timeOrdered By: Karon Corrales on 12-22-2024 PT Coag (PPP) [Time] 28.8 s High 11.7-14.[address] [facility] International normalized rat io (INR) calculationOrdered By: Karon Corrales on 12-18-2024 INR Coag (Bld) [Relative time] 2.4 {INR} [facility] [place] [facility] Prothrombin Time w/INRon INR Coag (PPP) [Relative time] 2.4 {INR} Normal [facility] Comment on above: Order Comment: 411.1 Performed By: #### L 300.3900 ####[facility] [address] [place], [place], [phone] PT Coag (PPP) [Time] 26.7 s High 11.7-14.[address] [facility] Comment on above: Order Comment: 411.1 Performed By: #### L 300.3900 ####[facility] [address] [place], [place], [phone] Prothrombin timeOrdered By: Karon Corrales on 12-18-2024 PT Coag (PPP) [Time] 26.7 s High 11.7-14.[address] [facility] International normalized rat io (INR) calculationOrdered By: Karon Corrales on 12-15-2024 INR Coag (Bld) [Relative time] 2.3 {INR} [facility] Prothrombin Time w/INRon INR Coag (PPP) [Relative time] 2.3 {INR} Normal [facility] Comment on above: Order Comment: 411.1 Performed By: #### L 300.3900 ####[facility] [address] [place], [place], [phone] Prothrombin timeOrdered By: Karon Corrales on 12-15-2024 PT Coag (PPP) [Time] 25.7 s High 11.7-14.[address] [facility] Comment on above: Order Comment: 411.1 Performed By: #### L 300.3900 ####[facility] [address] [place], [place], [phone] International normalized rat io (INR) calculationOrdered By: Carlos Cavazos on 12-11-2024 INR Coag (Bld) [Relative time] 2.2 {INR} [facility] Prothrombin Time w/INRon INR Coag (PPP) [Relative time] 2.2 {INR} Normal [facility] Comment on above: Order Comment: 411-1 Performed By: #### L 300.3900 ####[facility] [address] [place], [address] Prothrombin timeOrdered By: Carlos Cavazos on 12-11-2024 PT Coag (PPP) [Time] 24.7 s High 11.7-14.[address] [facility] Comment on above: Order Comment: 411-1 Performed By: #### L 300.3900 ####[facility] [address] [place], [place], [phone] International normalized rat io (INR) calculationOrdered By: Karon Corrales on 12-08-2024 INR Coag (Bld) [Relative time] 2.2 {INR} [facility] Prothrombin Time w/INRon INR Coag (PPP) [Relative time] 2.2 {INR} Normal [facility] Comment on above: Order Comment: 411.1 Performed By: #### L 300.3900 ####[facility] [address] [place], [address] PT Coag (PPP) [Time] 25.0 s High 11.7-14.[address] [facility] Comment on above: Order Comment: 411.1 Performed By: #### L 300.3900 ####[facility] [address] [place], [place], [phone] Prothrombin timeOrdered By: Karon Corrales on 12-08-2024 PT Coag (PPP) [Time] 25.0 s High 11.7-14.[address] [facility] International normalized rat io (INR) calculationOrdered By: Karon Corrales on 12-04-2024 INR Coag (Bld) [Relative time] 2.3 {INR} [facility] Prothrombin Time w/INRon INR Coag (PPP) [Relative time] 2.3 {INR} Normal [facility] Comment on above: Order Comment: 411.1 Performed By: #### L 300.3900 ####[facility] [address] [place], [address] PT Coag (PPP) [Time] 25.9 s High 11.7-14.[address] [facility] Comment on above: Order Comment: 411.1 Performed By: #### L 300.3900 ####[facility] [address] [place], [address] Prothrombin timeOrdered By: Karon Corrales on 12-04-2024 PT Coag (PPP) [Time] 25.9 s High 11.7-14.[address] [facility] International normalized rat io (INR) calculationOrdered By: Karon Corrales on 12-02-2024 INR Coag (Bld) [Relative time] 2.5 {INR} [facility] Prothrombin Time w/INRon INR Coag (PPP) [Relative time] 2.5 {INR} Normal [facility] Comment on above: Order Comment: 411.1 Performed By: #### L 300.3900 ####[facility] [address] [place], [address] PT Coag (PPP) [Time] 27.3 s High 11.7-14.[address] [facility] Comment on above: Order Comment: 411.1 Performed By: #### L 300.3900 ####[facility] [address] [place], [address] Prothrombin timeOrdered By: Karon Corrales on 12-02-2024 PT Coag (PPP) [Time] 27.3 s High 11.7-14.[address] [facility] International normalized rat io (INR) calculationOrdered By: Carlos Cavazos on 12-01-2024 INR Coag (Bld) [Relative time] 2.3 {INR} [facility] Prothrombin Time w/INRon INR Coag (PPP) [Relative time] 2.3 {INR} Normal [facility] Comment on above: Order Comment: 411-1 Performed By: #### L 300.3900 ####[facility] [address] [place], [address] PT Coag (PPP) [Time] 26.0 s High 11.7-14.[address] [facility] Comment on above: Order Comment: 411-1 Performed By: #### L 300.3900 ####[facility] [address] [place], [address] Prothrombin timeOrdered By: Carlos Cavazos on 12-01-2024 PT Coag (PPP) [Time] 26.0 s High 11.7-14.[address] [facility] International normalized rat io (INR) calculationOrdered By: Carlos Cavazos on 11-28-2024 INR Coag (Bld) [Relative time] 3.1 {INR} [facility] Prothrombin Time w/INRon INR Coag (PPP) [Relative time] 3.1 {INR} Normal [facility] Comment on above: Order Comment: 411-1 Performed By: #### L 300.3900 ####[facility] [address] [place], [address] PT Coag (PPP) [Time] 32.8 s High 11.7-14.[address] [facility] Comment on above: Order Comment: 411-1 Performed By: #### L 300.3900 ####[facility] [address] [place], [address] Prothrombin timeOrdered By: Carlos Cavazos on 11-28-2024 PT Coag (PPP) [Time] 32.8 s High 11.7-14.[address] [facility] International normalized rat io (INR) calculationOrdered By: Karon Corrales on 11-27-2024 INR Coag (Bld) [Relative time] 3.3 {INR} [facility] Prothrombin Time w/INRon INR Coag (PPP) [Relative time] 3.3 {INR} Normal [facility] Comment on above: Order Comment: 411.1 Performed By: #### L 300.3900 ####[facility] [address] [place], [place], [phone] PT Coag (PPP) [Time] 34.3 s High 11.7-14.[address] [facility] Comment on above: Order Comment: 411.1 Performed By: #### L 300.3900 ####[facility] [address] [place], [place], [phone] Prothrombin timeOrdered By: Karon Corrales on 11-27-2024 PT Coag (PPP) [Time] 34.3 s High 11.7-14.[address] [facility] International normalized rat io (INR) calculationOrdered By: Karon Corrales on 11-24-2024 INR Coag (Bld) [Relative time] 2.8 {INR} [facility] Prothrombin Time w/INRon INR Coag (PPP) [Relative time] 2.8 {INR} Normal [facility] Comment on above: Order Comment: 411.2 Performed By: #### L 300.3900 ####[facility] [address] [place], [place], [phone] PT Coag (PPP) [Time] 30.0 s High 11.7-14.[address] [facility] Comment on above: Order Comment: 411.2 Performed By: #### L 300.3900 ####[facility] [address] [place], [place], [phone] Prothrombin timeOrdered By: Karon Corrales on 11-24-2024 PT Coag (PPP) [Time] 30.0 s High 11.7-14.[address] [facility] International normalized rat io (INR) calculationOrdered By: Karon Corrales on 11-20-2024 INR Coag (Bld) [Relative time] 3.0 {INR} [facility] Prothrombin Time w/INRon INR Coag (PPP) [Relative time] 3.0 {INR} Normal [facility] Comment on above: Order Comment: 411.2 Performed By: #### L 300.3900 ####[facility] [address] [place], [place], [phone] PT Coag (PPP) [Time] 32.0 s High 11.7-14.[address] [facility] Comment on above: Order Comment: 411.2 Performed By: #### L 300.3900 ####[facility] [address] [place], [place], [phone] Prothrombin timeOrdered By: Karon Corrales on 11-20-2024 PT Coag (PPP) [Time] 32.0 s High 11.7-14.[address] [facility] International normalized rat io (INR) calculationOrdered By: Karon Corrales on 11-17-2024 INR Coag (Bld) [Relative time] 2.9 {INR} [facility] Prothrombin Time w/INRon INR Coag (PPP) [Relative time] 2.9 {INR} Normal [facility] Comment on above: Order Comment: 411.2 Performed By: #### L 300.3900 ####[facility] [address] [place], [place], [phone] PT Coag (PPP) [Time] 30.7 s High 11.7-14.[address] [facility] Comment on above: Order Comment: 411.2 Performed By: #### L 300.3900 ####[facility] [address] [place], [place], [phone] Prothrombin timeOrdered By: Karon Corrales on 11-17-2024 PT Coag (PPP) [Time] 30.7 s High 11.7-14.[address] [facility] International normalized rat io (INR) calculationOrdered By: Karon Corrales on 11-13-2024 INR Coag (Bld) [Relative time] 2.2 {INR} [facility] Prothrombin Time w/INRon INR Coag (PPP) [Relative time] 2.2 {INR} Normal [facility] Comment on above: Order Comment: 411.2 Performed By: #### L 300.3900 ####[facility] [address] [place], [place], [phone] PT Coag (PPP) [Time] 24.7 s High 11.7-14.[address] [facility] Comment on above: Order Comment: 411.2 Performed By: #### L 300.3900 ####[facility] [address] [place], [place], [phone] Prothrombin timeOrdered By: Karon Corrales on 11-13-2024 PT Coag (PPP) [Time] 24.7 s High 11.7-14.[address] [facility] International normalized rat io (INR) calculationOrdered By: Karon Corrales on 11-10-2024 INR Coag (Bld) [Relative time] 2.6 {INR} [facility] Prothrombin Time w/INRon INR Coag (PPP) [Relative time] 2.6 {INR} Normal [facility] Comment on above: Order Comment: 411.2 Performed By: #### L 300.3900 ####[facility] [address] [place], [address] PT Coag (PPP) [Time] 28.7 s High 11.7-14.[address] [facility] Comment on above: Order Comment: 411.2 Performed By: #### L 300.3900 ####[facility] [address] [place], [place], [phone] Prothrombin timeOrdered By: Karon Corrales on 11-10-2024 PT Coag (PPP) [Time] 28.7 s High 11.7-14.[address] [facility] International normalized rat io (INR) calculationOrdered By: Karon Corrales on 11-06-2024 INR Coag (Bld) [Relative time] 3.1 {INR} [facility] Prothrombin Time w/INRon INR Coag (PPP) [Relative time] 3.1 {INR} Normal [facility] Comment on above: Order Comment: 411.2 Performed By: #### L 300.3900 ####[facility] [address] [place], [address] Prothrombin timeOrdered By: Karon Corrales on 11-06-2024 PT Coag (PPP) [Time] 33.0 s High 11.7-14.[address] [facility] Comment on above: Order Comment: 411.2 Performed By: #### L 300.3900 ####[facility] [address] [place], [address] International normalized rat io (INR) calculationOrdered By: Carlos Cavazos on 11-03-2024 INR Coag (Bld) [Relative time] 3.0 {INR} [facility] Prothrombin Time w/INRon INR Coag (PPP) [Relative time] 3.0 {INR} Normal [facility] Comment on above: Order Comment: 411-2 Performed By: #### L 300.3900 ####[facility] [address] [place], [address] PT Coag (PPP) [Time] 31.4 s High 11.7-14.[address] [facility] Comment on above: Order Comment: 411-2 Performed By: #### L 300.3900 ####[facility] [address] [place], [address] Prothrombin timeOrdered By: Carlos Cavazos on 11-03-2024 PT Coag (PPP) [Time] 31.4 s High 11.7-14.[address] [facility] International normalized rat io (INR) calculationOrdered By: Karon Corrales on 10-30-2024 INR Coag (Bld) [Relative time] 2.4 {INR} [facility] Prothrombin Time w/INRon INR Coag (PPP) [Relative time] 2.4 {INR} Normal [facility] Comment on above: Performed By: #### L 300.3900 ####[facility] [address] [place], [place], [phone] PT Coag (PPP) [Time] 26.3 s High 11.7-14.[address] [facility] Comment on above: Performed By: #### L 300.3900 ####[facility] [address] [place], [place], [phone] Prothrombin timeOrdered By: Karon Corrales on 10-30-2024 PT Coag (PPP) [Time] 26.3 s High 11.7-14.[address] [facility] International normalized rat io (INR) calculationOrdered By: Karon Corrales on 10-27-2024 INR Coag (Bld) [Relative time] 2.2 {INR} [facility] Prothrombin Time w/INRon INR Coag (PPP) [Relative time] 2.2 {INR} Normal [facility] Comment on above: Order Comment: 411.2 Performed By: #### L 300.3900 ####[facility] [address] [place], [place], [phone] Prothrombin timeOrdered By: Karon Corrales on 10-27-2024 PT Coag (PPP) [Time] 24.5 s High 11.7-14.[address] [facility] Comment on above: Order Comment: 411.2 Performed By: #### L 300.3900 ####[facility] [address] [place], [address] International normalized rat io (INR) calculationOrdered By: Karon Corrales on 10-23-2024 INR Coag (Bld) [Relative time] 2.5 {INR} [facility] Prothrombin Time w/INRon INR Coag (PPP) [Relative time] 2.5 {INR} Normal [facility] Comment on above: Order Comment: 411.2 Performed By: #### L 300.3900 ####[facility] [address] [place], [address] PT Coag (PPP) [Time] 27.9 s High 11.7-14.[address] [facility] Comment on above: Order Comment: 411.2 Performed By: #### L 300.3900 ####[facility] [address] [place], [address] Prothrombin timeOrdered By: Karon Corrales on 10-23-2024 PT Coag (PPP) [Time] 27.9 s High 11.7-14.[address] [facility] International normalized rat io (INR) calculationOrdered By: Karon Corrales on 10-20-2024 INR Coag (Bld) [Relative time] 3.1 {INR} [facility] Prothrombin Time w/INRon INR Coag (PPP) [Relative time] 3.1 {INR} Normal [facility] Comment on above: Order Comment: 411.2 Performed By: #### L 300.3900 ####[facility] [address] [place], [address] PT Coag (PPP) [Time] 32.8 s High 11.7-14.[address] [facility] Comment on above: Order Comment: 411.2 Performed By: #### L 300.3900 ####[facility] [address] [place], [address] Prothrombin timeOrdered By: Karon Corrales on 10-20-2024 PT Coag (PPP) [Time] 32.8 s High 11.7-14.[address] [facility] International normalized rat io (INR) calculationOrdered By: Karon Corrales on 10-16-2024 INR Coag (Bld) [Relative time] 2.8 {INR} [facility] Prothrombin Time w/INRon INR Coag (PPP) [Relative time] 2.8 {INR} Normal [facility] Comment on above: Order Comment: 411.2 Performed By: #### L 300.3900 ####[facility] [address] [place], [place], [phone] PT Coag (PPP) [Time] 30.4 s High 11.7-14.[address] [facility] Comment on above: Order Comment: 411.2 Performed By: #### L 300.3900 ####[facility] [address] [place], [phone] Prothrombin timeOrdered By: Karon Corrales on 10-16-2024 PT Coag (PPP) [Time] 30.4 s High 11.7-14.[address] [facility] International normalized rat io (INR) calculationOrdered By: Carlos Cavazos on 10-13-2024 INR Coag (Bld) [Relative time] 1.9 {INR} [facility] Prothrombin Time w/INRon INR Coag (PPP) [Relative time] 1.9 {INR} Normal [facility] Comment on above: Order Comment: 411-2 Performed By: #### L 300.3900 ####[facility] [address] [place], [place], [phone] PT Coag (PPP) [Time] 22.4 s High 11.7-14.[address] [facility] Comment on above: Order Comment: 411-2 Performed By: #### L 300.3900 ####[facility] [address] [place], [place], [phone] Prothrombin timeOrdered By: Carlos Cavazos on 10-13-2024 PT Coag (PPP) [Time] 22.4 s High 11.7-14.[address] [facility] International normalized rat io (INR) calculationOrdered By: Karon Corrales on 10-09-2024 INR Coag (Bld) [Relative time] 3.0 {INR} [facility] Prothrombin Time w/INRon INR Coag (PPP) [Relative time] 3.0 {INR} Normal [facility] Comment on above: Order Comment: 411.2 Performed By: #### L 300.3900 ####[facility] [address] [place], [address] Prothrombin timeOrdered By: Karon Corrales on 10-09-2024 PT Coag (PPP) [Time] 31.8 s High 11.7-14.[address] [facility] Comment on above: Order Comment: 411.2 Performed By: #### L 300.3900 ####[facility] [address] [place], [address] International normalized rat io (INR) calculationOrdered By: Carlos Cavazos on 10-06-2024 INR Coag (Bld) [Relative time] 2.7 {INR} [facility] Prothrombin Time w/INRon INR Coag (PPP) [Relative time] 2.7 {INR} Normal [facility] Comment on above: Order Comment: 411-2 Performed By: #### L 300.3900 ####[facility] [address] [place], [address] PT Coag (PPP) [Time] 29.6 s High 11.7-14.[address] [facility] Comment on above: Order Comment: 411-2 Performed By: #### L 300.3900 ####[facility] [address] [place], [address] Prothrombin timeOrdered By: Carlos Cavazos on 10-06-2024 PT Coag (PPP) [Time] 29.6 s High 11.7-14.[address] [facility] International normalized rat io (INR) calculationOrdered By: Karon Corrales on 10-02-2024 INR Coag (Bld) [Relative time] 2.3 {INR} [facility] Prothrombin Time w/INRon INR Coag (PPP) [Relative time] 2.3 {INR} Normal [facility] Comment on above: Order Comment: 411.2 Performed By: #### L 300.3900 ####[facility] [address] [place], [address] PT Coag (PPP) [Time] 26.0 s High 11.7-14.[address] [facility] Comment on above: Order Comment: 411.2 Performed By: #### L 300.3900 ####[facility] [address] [place], [address] Prothrombin timeOrdered By: Karon Corrales on 10-02-2024 PT Coag (PPP) [Time] 26.0 s High 11.7-14.[address] [facility] International normalized rat io (INR) calculationOrdered By: Karon Corrales on 09-30-2024 INR Coag (Bld) [Relative time] 3.1 {INR} [facility] Prothrombin Time w/INRon INR Coag (PPP) [Relative time] 3.1 {INR} Normal [facility] Comment on above: Order Comment: 411.2 Performed By: #### L 300.3900 ####[facility] [address] [place], [address] PT Coag (PPP) [Time] 32.6 s High 11.7-14.[address] [facility] Comment on above: Order Comment: 411.2 Performed By: #### L 300.3900 ####[facility] [address] [place], [place], [phone] Prothrombin timeOrdered By: Karon Corrales on 09-30-2024 PT Coag (PPP) [Time] 32.6 s High 11.7-14.[address] [facility] International normalized rat io (INR) calculationOrdered By: Karon Corrales on 09-25-2024 INR Coag (Bld) [Relative time] 2.4 {INR} [facility] Prothrombin Time w/INRon INR Coag (PPP) [Relative time] 2.4 {INR} Normal [facility] Comment on above: Order Comment: 411.2 Performed By: #### L 300.3900 ####[facility] [address] [place], [address] Prothrombin timeOrdered By: Karon Corrales on 09-25-2024 PT Coag (PPP) [Time] 26.7 s High 11.7-14.[address] [facility] Comment on above: Order Comment: 411.2 Performed By: #### L 300.3900 ####[facility] [address] [place], [place], [phone] International normalized rat io (INR) calculationOrdered By: Karon Corrales on 09-22-2024 INR Coag (Bld) [Relative time] 2.5 {INR} [facility] Prothrombin Time w/INRon INR Coag (PPP) [Relative time] 2.5 {INR} Normal [facility] Comment on above: Order Comment: 411.2 Performed By: #### L 300.3900 ####[facility] [address] [place], [place], [phone] Prothrombin timeOrdered By: Karon Corrales on 09-22-2024 PT Coag (PPP) [Time] 27.4 s High 11.7-14.[address] [facility] Comment on above: Order Comment: 411.2 Performed By: #### L 300.3900 ####[facility] [address] [place], [address] International normalized rat io (INR) calculationOrdered By: Karon Corrales on 09-18-2024 INR Coag (Bld) [Relative time] 2.2 {INR} [facility] Prothrombin Time w/INRon INR Coag (PPP) [Relative time] 2.2 {INR} Normal [facility] Comment on above: Order Comment: 411.2 Performed By: #### L 300.3900 ####[facility] [address] [place], [place], [phone] PT Coag (PPP) [Time] 25.1 s High 11.7-14.[address] [facility] Comment on above: Order Comment: 411.2 Performed By: #### L 300.3900 ####[facility] [address] [place], [place], [phone] Prothrombin timeOrdered By: Karon Corrales on 09-18-2024 PT Coag (PPP) [Time] 25.1 s High 11.7-14.[address] [facility] International normalized rat io (INR) calculationOrdered By: Carlos Cavazos on 09-15-2024 INR Coag (Bld) [Relative time] 2.4 {INR} [facility] Prothrombin Time w/INRon INR Coag (PPP) [Relative time] 2.4 {INR} Normal [facility] Comment on above: Order Comment: 411-2 Performed By: #### L 300.3900 ####[facility] [address] [place], [place], [phone] Prothrombin timeOrdered By: Carlos Cavazos on 09-15-2024 PT Coag (PPP) [Time] 26.3 s High 11.7-14.[address] [facility] Comment on above: Order Comment: 411-2 Performed By: #### L 300.3900 ####[facility] [address] [place], [place], [phone] International normalized rat io (INR) calculationOrdered By: Karon Corrales on 09-11-2024 INR Coag (Bld) [Relative time] 2.0 {INR} [facility] Prothrombin Time w/INRon INR Coag (PPP) [Relative time] 2.0 {INR} Normal [facility] Comment on above: Order Comment: 411.2 Performed By: #### L 300.3900 ####[facility] [address] [place], [place], [phone] PT Coag (PPP) [Time] 22.9 s High 11.7-14.[address] [facility] Comment on above: Order Comment: 411.2 Performed By: #### L 300.3900 ####[facility] [address] [place], [place], [phone] Prothrombin timeOrdered By: Karon Corrales on 09-11-2024 PT Coag (PPP) [Time] 22.9 s High 11.7-14.[address] [facility] International normalized rat io (INR) calculationOrdered By: Karon Corrales on 09-08-2024 INR Coag (Bld) [Relative time] 2.0 {INR} [facility] Prothrombin Time w/INRon INR Coag (PPP) [Relative time] 2.0 {INR} Normal [facility] Comment on above: Order Comment: 411.2 Performed By: #### L 300.3900 ####[facility] [address] [place], [place], [phone] PT Coag (PPP) [Time] 22.8 s High 11.7-14.[address] [facility] Comment on above: Order Comment: 411.2 Performed By: #### L 300.3900 ####[facility] [address] [place], [place], [phone]([phone] Prothrombin timeOrdered By: Karon Corrales on 09-08-2024 PT Coag (PPP) [Time] 22.8 s High 11.7-14.[address] [facility] International normalized rat io (INR) calculationOrdered By: Carlos Cavazos on 09-04-2024 INR Coag (Bld) [Relative time] 1.7 {INR} [facility] Prothrombin Time w/INRon INR Coag (PPP) [Relative time] 1.7 {INR} Normal [facility] Comment on above: Order Comment: 411-2 Performed By: #### L 300.3900 ####[facility] [address] [place], [address]([phone] PT Coag (PPP) [Time] 20.8 s High 11.7-14.[address] [facility] Comment on above: Order Comment: 411-2 Performed By: #### L 300.3900 ####[facility] [address] [place], [address](128 Prothrombin timeOrdered By: Carlos Cavazos on 09-04-2024 PT Coag (PPP) [Time] 20.8 s High 11.7-14.[address] [facility] International normalized rat io (INR) calculationOrdered By: Carlos Cavazos on 09-01-2024 INR Coag (Bld) [Relative time] 2.9 {INR} [facility] Prothrombin Time w/INRon INR Coag (PPP) [Relative time] 2.9 {INR} Normal [facility] Comment on above: Order Comment: 411-2 Performed By: #### L 300.3900 ####[facility] [address] [place], [address] PT Coag (PPP) [Time] 30.7 s High 11.7-14.[address] [facility] Comment on above: Order Comment: 411-2 Performed By: #### L 300.3900 ####[facility] [address] [place], [address]([phone] Prothrombin timeOrdered By: Carlos Cavazos on 09-01-2024 PT Coag (PPP) [Time] 30.7 s High 11.7-14.[address] [facility] International normalized rat io (INR) calculationOrdered By: Carlos Cavazos on 08-28-2024 INR Coag (Bld) [Relative time] 2.4 {INR} [facility] Prothrombin Time w/INRon INR Coag (PPP) [Relative time] 2.4 {INR} Normal [facility] Comment on above: Order Comment: 411-2 Performed By: #### L 300.3900 ####[facility] [address] [place], [address] Prothrombin timeOrdered By: Carlos Cavazos on 08-28-2024 PT Coag (PPP) [Time] 26.7 s High 11.7-14.[address] [facility] Comment on above: Order Comment: 411-2 Performed By: #### L 300.3900 ####[facility] [address] [place], [address] International normalized rat io (INR) calculationOrdered By: Karon Corrales on 08-25-2024 INR Coag (Bld) [Relative time] 1.8 {INR} [facility] Prothrombin Time w/INRon INR Coag (PPP) [Relative time] 1.8 {INR} Normal [facility] Comment on above: Order Comment: 411.2 Performed By: #### L 300.3900 ####[facility] [address] [place], [place], [phone] PT Coag (PPP) [Time] 21.6 s High 11.7-14.[address] [facility] Comment on above: Order Comment: 411.2 Performed By: #### L 300.3900 ####[facility] [address] [place], [address] Prothrombin timeOrdered By: Karon Corrales on 08-25-2024 PT Coag (PPP) [Time] 21.6 s High 11.7-14.[address] [facility] International normalized rat io (INR) calculationOrdered By: Karon Corrales on 08-21-2024 INR Coag (Bld) [Relative time] 1.7 {INR} [facility] PSA, total screeningOrdered By: Karon Corrales on 08-21-2024 Prostate Specific Antigen Screen 0.52 ng/mL 0.02-4.00 [facility] Comment on above: This test was perfor med using the [employer] tPSA method. Measured values of a patient sample can vary depending on the testing procedure used. PSA values determined on patient samples by different testing procedures cannot be used interchangeably. If there is a change in PSA assays while monitoring therapy, sequential testing should be performed to confirm baseline values. PSA,Total - Annual Screenon 08-21-2024 PSA,TOT SCREEN 0.52 ng/mL Normal 0.02-4.00 [facility] Comment on above: Order [...] Performed By: #### L 501.9910, L300.3900 ####[facility] [address] [place], [address] Prothrombin Time w/INRon INR Coag (PPP) [Relative time] 1.7 {INR} Normal [facility] Comment on above: Order Comment: 411.2 Performed By: #### L 501.9910, L300.3900 ####[facility] [address] [place], [address] Prothrombin timeOrdered By: Karon Corrales on 08-21-2024 PT Coag (PPP) [Time] 20.1 s High 11.7-14.[address] [facility] Comment on above: Order Comment: 411.2 Performed By: #### L 501.9910, L300.3900 ####[facility] [address] [place], [place], [phone] International normalized rat io (INR) calculationOrdered By: Karon Corrales on 08-18-2024 INR Coag (Bld) [Relative time] 3.0 {INR} [facility] Prothrombin Time w/INRon INR Coag (PPP) [Relative time] 3.0 {INR} Normal [facility] Comment on above: Order Comment: 411.2 Performed By: #### L 300.3900 ####[facility] [address] [place], [place], [phone]([phone]) PT Coag (PPP) [Time] 31.4 s High 11.7-14.[address] [facility] Comment on above: Order Comment: 411.2 Performed By: #### L 300.3900 ####[facility] [address] [place], [place], [phone] Prothrombin timeOrdered By: Karon Corrales on 08-18-2024 PT Coag (PPP) [Time] 31.4 s High 11.7-14.[address] [facility] International normalized rat io (INR) calculationOrdered By: Karon Corrales on 08-14-2024 INR Coag (Bld) [Relative time] 2.4 {INR} [facility] Prothrombin Time w/INRon INR Coag (PPP) [Relative time] 2.4 {INR} Normal [facility] Comment on above: Order Comment: 411.2 Performed By: #### L 300.3900 ####[facility] [address] [place], [address] PT Coag (PPP) [Time] 26.6 s High 11.7-14.[address] [facility] Comment on above: Order Comment: 411.2 Performed By: #### L 300.3900 ####[facility] [address] [place], [place], [phone] Prothrombin timeOrdered By: Karon Corrales on 08-14-2024 PT Coag (PPP) [Time] 26.6 s High 11.7-14.[address] [facility] International normalized rat io (INR) calculationOrdered By: Karon Corrales on 08-11-2024 INR Coag (Bld) [Relative time] 3.1 {INR} [facility] Prothrombin Time w/INRon INR Coag (PPP) [Relative time] 3.1 {INR} Normal [facility] Comment on above: Order Comment: 411.2 Performed By: #### L 300.3900 ####[facility] [address] [place], [place], [phone](825) PT Coag (PPP) [Time] 32.4 s High 11.7-14.[address] [facility] Comment on above: Order Comment: 411.2 Performed By: #### L 300.3900 ####[facility] [address] [place], [place], [phone] Prothrombin timeOrdered By: Karon Corrales on 08-11-2024 PT Coag (PPP) [Time] 32.4 s High 11.7-14.[address] [facility] International normalized rat io (INR) calculationOrdered By: Carlos Cavazos on 08-07-2024 INR Coag (Bld) [Relative time] 2.8 {INR} [facility] Prothrombin Time w/INRon INR Coag (PPP) [Relative time] 2.8 {INR} Normal [facility] Comment on above: Order Comment: 411-2 Performed By: #### L 300.3900 ####[facility] [address] [place], [place], [phone] PT Coag (PPP) [Time] 30.3 s High 11.7-14.[address] [facility] Comment on above: Order Comment: 411-2 Performed By: #### L 300.3900 ####[facility] [address] [place], [address] Prothrombin timeOrdered By: Carlos Cavazos on 08-07-2024 PT Coag (PPP) [Time] 30.3 s High 11.7-14.[address] [facility] International normalized rat io (INR) calculationOrdered By: Carlos Cavazos on 08-04-2024 INR Coag (Bld) [Relative time] 1.9 {INR} [facility] Prothrombin Time w/INRon INR Coag (PPP) [Relative time] 1.9 {INR} Normal [facility] Comment on above: Order Comment: 411-2 Performed By: #### L 300.3900 ####[facility] [address] [place], [place], [phone] PT Coag (PPP) [Time] 22.1 s High 11.7-14.[address] [facility] Comment on above: Order Comment: 411-2 Performed By: #### L 300.3900 ####[facility] [address] [place], [place], [phone] Prothrombin timeOrdered By: Carlos Cavazos on 08-04-2024 PT Coag (PPP) [Time] 22.1 s High 11.7-14.[address] [facility] International normalized rat io (INR) calculationOrdered By: Karon Corrales on 07-31-2024 INR Coag (Bld) [Relative time] 3.2 {INR} [facility] Prothrombin Time w/INRon INR Coag (PPP) [Relative time] 3.2 {INR} Normal [facility] Comment on above: Order Comment: 411.2 Performed By: #### L 300.3900 ####[facility] [address] [place], [place], [phone] PT Coag (PPP) [Time] 33.5 s High 11.7-14.[address] [facility] Comment on above: Order Comment: 411.2 Performed By: #### L 300.3900 ####[facility] [address] [place], [place], [phone] Prothrombin timeOrdered By: Karon Corrales on 07-31-2024 PT Coag (PPP) [Time] 33.5 s High 11.7-14.[address] [facility] International normalized rat io (INR) calculationOrdered By: Karon Corrales on 07-28-2024 INR Coag (Bld) [Relative time] 2.7 {INR} [facility] Prothrombin Time w/INRon INR Coag (PPP) [Relative time] 2.7 {INR} Normal [facility] Comment on above: Order Comment: 411.2 Performed By: #### L 300.3900 ####[facility] [address] [place], [place], [phone] PT Coag (PPP) [Time] 29.6 s High 11.7-14.[address] [facility] Comment on above: Order Comment: 411.2 Performed By: #### L 300.3900 ####[facility] [address] [place], [place], [phone] Prothrombin timeOrdered By: Karon Corrales on 07-28-2024 PT Coag (PPP) [Time] 29.6 s High 11.7-14.[address] [facility] International normalized rat io (INR) calculationOrdered By: Carlos Cavazos on 07-25-2024 INR Coag (Bld) [Relative time] 3.0 {INR} [facility] Prothrombin Time w/INRon INR Coag (PPP) [Relative time] 3.0 {INR} Normal [facility] Comment on above: Order Comment: 411-2 Performed By: #### L 300.3900 ####[facility] [address] [place], [address] Prothrombin timeOrdered By: Carlos Cavazos on 07-25-2024 PT Coag (PPP) [Time] 32.1 s High 11.7-14.[address] [facility] Comment on above: Order Comment: 411-2 Performed By: #### L 300.3900 ####[facility] [address] [place], [place], [phone] International normalized rat io (INR) calculationOrdered By: Karon Corrales on 07-24-2024 INR Coag (Bld) [Relative time] 3.4 {INR} [facility] Prothrombin Time w/INRon INR Coag (PPP) [Relative time] 3.4 {INR} Normal [facility] Comment on above: Order Comment: 411.2 Performed By: #### L 300.3900 ####[facility] [address] [place], [place], [phone] Prothrombin timeOrdered By: Karon Corrales on 07-24-2024 PT Coag (PPP) [Time] 35.4 s High 11.7-14.[address] [facility] Comment on above: Order Comment: 411.2 Performed By: #### L 300.3900 ####[facility] [address] [place], [place], [phone] International normalized rat io (INR) calculationOrdered By: Karon Corrales on 07-21-2024 INR Coag (Bld) [Relative time] 1.6 {INR} [facility] Prothrombin Time w/INRon INR Coag (PPP) [Relative time] 1.6 {INR} Normal [facility] Comment on above: Order Comment: 411.2 Performed By: #### L 300.3900 ####[facility] [address] [place], [place], [phone] PT Coag (PPP) [Time] 19.6 s High 11.7-14.[address] [facility] Comment on above: Order Comment: 411.2 Performed By: #### L 300.3900 ####[facility] [address] [place], [place], [phone]([phone] Prothrombin timeOrdered By: Karon Corrales on 07-21-2024 PT Coag (PPP) [Time] 19.6 s High 11.7-14.[address] [facility] International normalized rat io (INR) calculationOrdered By: Karon Corrales on 07-17-2024 INR Coag (Bld) [Relative time] 2.9 {INR} [facility] Prothrombin Time w/INRon INR Coag (PPP) [Relative time] 2.9 {INR} Normal [facility] Comment on above: Order Comment: 411.2 Performed By: #### L 300.3900 ####[facility] [address] [place], [place], [phone] PT Coag (PPP) [Time] 31.1 s High 11.7-14.[address] [facility] Comment on above: Order Comment: 411.2 Performed By: #### L 300.3900 ####[facility] [address] [place], [address] Prothrombin timeOrdered By: Karon oCrrales on 07-17-2024 PT Coag (PPP) [Time] 31.1 s High 11.7-14.[address] [facility] International normalized rat io (INR) calculationOrdered By: Carlos Cavazos on 07-14-2024 INR Coag (Bld) [Relative time] 2.5 {INR} [facility] Prothrombin Time w/INRon INR Coag (PPP) [Relative time] 2.5 {INR} Normal [facility] Comment on above: Order Comment: 411-2 Performed By: #### L 300.3900 ####[facility] [address] [place], [address] PT Coag (PPP) [Time] 27.5 s High 11.7-14.[address] [facility] Comment on above: Order Comment: 411-2 Performed By: #### L 300.3900 ####[facility] [address] [place], [address] Prothrombin timeOrdered By: Carlos Cavazos on 07-14-2024 PT Coag (PPP) [Time] 27.5 s High 11.7-14.[address] [facility] International normalized rat io (INR) calculationOrdered By: Carlos Cavazos on 07-11-2024 INR Coag (Bld) [Relative time] 2.5 {INR} [facility] Prothrombin Time w/INRon INR Coag (PPP) [Relative time] 2.5 {INR} Normal [facility] Comment on above: Performed By: #### L 300.3900 ####[facility] [address] [place], [address] PT Coag (PPP) [Time] 27.7 s High 11.7-14.[address] [facility] Comment on above: Performed By: #### L 300.3900 ####[facility] [address] [place], [place], [phone] Prothrombin timeOrdered By: Carlos Cavazos on 07-11-2024 PT Coag (PPP) [Time] 27.7 s High 11.7-14.[address] [facility] Prothrombin Time w/INRon INR Normal [facility] Comment on above: Order Comment: 411.2 Result Comment: QNS TUBE NOT FILLED Performed By: #### L 300.3900 ####[facility] [address] [place], [place], [phone] PROTIME Normal 11.7-14.9 [facility] Comment on above: Order Comment: 411.2 Result Comment: QNS TUBE NOT FILLED Performed By: #### L 300.3900 ####[facility] [address] [place], [place], [phone]([phone] International normalized rat io (INR) calculationOrdered By: Kvng Crisostomo on 07-07-2024 INR Coag (Bld) [Relative time] 2.5 {INR} [facility] Prothrombin Time w/INRon INR Coag (PPP) [Relative time] 2.5 {INR} Normal [facility] Comment on above: Order Comment: 411.2 Performed By: #### L 300.3900 ####[facility] [address] [place], [address] PT Coag (PPP) [Time] 27.2 s High 11.7-14.[address] [facility] Comment on above: Order Comment: 411.2 Performed By: #### L 300.3900 ####[facility] [address] [place], [address] Prothrombin timeOrdered By: Kvng Crisostomo on 07-07-2024 PT Coag (PPP) [Time] 27.2 s High 11.7-14.[address] [facility] International normalized rat io (INR) calculationOrdered By: Kvng Crisostomo on 07-03-2024 INR Coag (Bld) [Relative time] 2.5 {INR} [facility] Prothrombin Time w/INRon INR Coag (PPP) [Relative time] 2.5 {INR} Normal [facility] Comment on above: Order Comment: 411.2 Performed By: #### L 300.3900 ####[facility] [address] [place], [address] PT Coag (PPP) [Time] 27.2 s High 11.7-14.[address] [facility] Comment on above: Order Comment: 411.2 Performed By: #### L 300.3900 ####[facility] [address] [place], [address] Prothrombin timeOrdered By: Kvng Crisostomo on 07-03-2024 PT Coag (PPP) [Time] 27.2 s High 11.7-14.[address] [facility] [employer] normalized rat io (INR) calculationOrdered By: Kvng Crisostomo on 06-30-2024 INR Coag (Bld) [Relative time] 2.4 {INR} [facility] Prothrombin Time w/INRon INR Coag (PPP) [Relative time] 2.4 {INR} Normal [facility] Comment on above: Order Comment: 411.2 Performed By: #### L 300.3900 ####[facility] [address] [place], [address] PT Coag (PPP) [Time] 26.8 s High 11.7-14.[address] [facility] Comment on above: Order Comment: 411.2 Performed By: #### L 300.3900 ####[facility] [address] [place], [address] Prothrombin timeOrdered By: Kvng Crisostomo on 06-30-2024 PT Coag (PPP) [Time] 26.8 s High 11.7-14.[address] [facility] [employer] normalized rat io (INR) calculationOrdered By: Kvng Crisostomo on 06-26-2024 INR Coag (Bld) [Relative time] 2.5 {INR} [facility] Prothrombin Time w/INRon INR Coag (PPP) [Relative time] 2.5 {INR} Normal [facility] Comment on above: Order Comment: 411.2 Performed By: #### L 300.3900 ####[facility] [address] [place], [address] PT Coag (PPP) [Time] 27.5 s High 11.7-14.[address] [facility] Comment on above: Order Comment: 411.2 Performed By: #### L 300.3900 ####[facility] [address] [place], [place], [phone]([phone] Prothrombin timeOrdered By: Kvng Crisostomo on 06-26-2024 PT Coag (PPP) [Time] 27.5 s High 11.7-14.[address] [facility] [employer] normalized rat io (INR) calculationOrdered By: Carlos Cavazos on 06-23-2024 INR Coag (Bld) [Relative time] 2.8 {INR} [facility] Prothrombin Time w/INRon INR Coag (PPP) [Relative time] 2.8 {INR} Normal [facility] Comment on above: Order Comment: 411-2 Performed By: #### L 300.3900 ####[facility] [address] [place], [address] PT Coag (PPP) [Time] 29.7 s High 11.7-14.[address] [facility] Comment on above: Order Comment: 411-2 Performed By: #### L 300.3900 ####[facility] [address] [place], [address] Prothrombin timeOrdered By: Carlos Cavazos on 06-23-2024 PT Coag (PPP) [Time] 29.7 s High 11.7-14.[address] [facility] [employer] normalized rat io (INR) calculationOrdered By: Kvng Crisostomo on 06-19-2024 INR Coag (Bld) [Relative time] 2.6 {INR} [facility] Prothrombin Time w/INRon INR Coag (PPP) [Relative time] 2.6 {INR} Normal [facility] Comment on above: Order Comment: 411.2 Performed By: #### L 300.3900 ####[facility] [address] [place], [address] PT Coag (PPP) [Time] 28.6 s High 11.7-14.[address] [facility] Comment on above: Order Comment: 411.2 Performed By: #### L 300.3900 ####[facility] [address] [place], [address] Prothrombin timeOrdered By: Kvng Crisostomo on 06-19-2024 PT Coag (PPP) [Time] 28.6 s High 11.7-14.[address] [facility] [employer] normalized rat io (INR) calculationOrdered By: Kvng Crisostomo on 06-16-2024 INR Coag (Bld) [Relative time] 2.5 {INR} [facility] Prothrombin Time w/INRon INR Coag (PPP) [Relative time] 2.5 {INR} Normal [facility] Comment on above: Order Comment: 411.2 Performed By: #### L 300.3900 ####[facility] [address] [place], [address] PT Coag (PPP) [Time] 27.3 s High 11.7-14.[address] [facility] Comment on above: Order Comment: 411.2 Performed By: #### L 300.3900 ####[facility] [address] [place], [address] Prothrombin timeOrdered By: Kvng Crisostomo on 06-16-2024 PT Coag (PPP) [Time] 27.3 s High 11.7-14.[address] [facility] [employer] normalized rat io (INR) calculationOrdered By: Kvng Crisostomo on 06-12-2024 INR Coag (Bld) [Relative time] 2.1 {INR} [facility] Prothrombin Time w/INRon INR Coag (PPP) [Relative time] 2.1 {INR} Normal [facility] Comment on above: Order Comment: 411.2 Performed By: #### L 300.3900 ####[facility] [address] [place], [address] PT Coag (PPP) [Time] 24.0 s High 11.7-14.[address] [facility] Comment on above: Order Comment: 411.2 Performed By: #### L 300.3900 ####[facility] [address] [place], [address] Prothrombin timeOrdered By: Kvng Crisostomo on 06-12-2024 PT Coag (PPP) [Time] 24.0 s High 11.7-14.[address] [facility] [employer] normalized rat io (INR) calculationOrdered By: Carlos Cavazos on 06-09-2024 INR Coag (Bld) [Relative time] 1.5 {INR} [facility] Prothrombin Time w/INRon INR Coag (PPP) [Relative time] 1.5 {INR} Normal [facility] Comment on above: Order Comment: 411-2 Performed By: #### L 300.3900 ####[facility] [address] [place], [address] PT Coag (PPP) [Time] 18.0 s High 11.7-14.[address] [facility] Comment on above: Order Comment: 411-2 Performed By: #### L 300.3900 ####[facility] [address] [place], [address] Prothrombin timeOrdered By: Carlos Cavazos on 06-09-2024 PT Coag (PPP) [Time] 18.0 s High 11.7-14.[address] [facility] [employer] normalized rat io (INR) calculationOrdered By: Kvng Crisostomo on 06-05-2024 INR Coag (Bld) [Relative time] 2.8 {INR} [facility] Prothrombin Time w/INRon INR Coag (PPP) [Relative time] 2.8 {INR} Normal [facility] Comment on above: Order Comment: 411.2 Performed By: #### L 300.3900 ####[facility] [address] [place], [address] PT Coag (PPP) [Time] 30.3 s High 11.7-14.[address] [facility] Comment on above: Order Comment: 411.2 Performed By: #### L 300.3900 ####[facility] [address] [place], [address] Prothrombin timeOrdered By: Kvng Crisostomo on 06-05-2024 PT Coag (PPP) [Time] 30.3 s High 11.7-14.[address] [facility] [employer] normalized rat io (INR) calculationOrdered By: Kvng Crisostomo on 06-02-2024 INR Coag (Bld) [Relative time] 2.6 {INR} [facility] Prothrombin Time w/INRon INR Coag (PPP) [Relative time] 2.6 {INR} Normal [facility] Comment on above: Order Comment: 411.2 Performed By: #### L 300.3900 ####[facility] [address] [place], [address] PT Coag (PPP) [Time] 28.6 s High 11.7-14.[address] [facility] Comment on above: Order Comment: 411.2 Performed By: #### L 300.3900 ####[facility] [address] [facility] [address] Prothrombin timeOrdered By: Kvng Crisostomo on 06-02-2024 PT Coag (PPP) [Time] 28.6 s High 11.7-14.[address] [facility] [employer] normalized rat io (INR) calculationOrdered By: Kvng Crisostomo on 05-29-2024 INR Coag (Bld) [Relative time] 2.5 {INR} [facility] Prothrombin Time w/INRon INR Coag (PPP) [Relative time] 2.5 {INR} Normal [facility] Comment on above: Order Comment: 411.2 Performed By: #### L 300.3900 ####[facility] [address] [place], [address] PT Coag (PPP) [Time] 27.7 s High 11.7-14.[address] [facility] Comment on above: Order Comment: 411.2 Performed By: #### L 300.3900 ####[facility] [address] [place], [address] Prothrombin timeOrdered By: Kvng Crisostomo on 05-29-2024 PT Coag (PPP) [Time] 27.7 s High 11.7-14.[address] [facility] [employer] normalized rat io (INR) calculationOrdered By: Carlos Cavazos on 05-26-2024 INR Coag (Bld) [Relative time] 2.2 {INR} [facility] Prothrombin Time w/INRon INR Coag (PPP) [Relative time] 2.2 {INR} Normal [facility] Comment on above: Order Comment: 411-2 Performed By: #### L 300.3900 ####[facility] [address] [place], [place], [phone] PT Coag (PPP) [Time] 24.5 s High 11.7-14.[address] [facility] Comment on above: Order Comment: 411-2 Performed By: #### L 300.3900 ####[facility] [address] [place], [address] Prothrombin timeOrdered By: Carlos Cavazos on 05-26-2024 PT Coag (PPP) [Time] 24.5 s High 11.7-14.[address] [facility] [employer] normalized rat io (INR) calculationOrdered By: Kvng Crisostomo on 05-22-2024 INR Coag (Bld) [Relative time] 2.8 {INR} [facility] Prothrombin Time w/INRon INR Coag (PPP) [Relative time] 2.8 {INR} Normal [facility] Comment on above: Order Comment: 411.2 Performed By: #### L 300.3900 ####[facility] [address] [place], [place], [phone] PT Coag (PPP) [Time] 30.3 s High 11.7-14.[address] [facility] Comment on above: Order Comment: 411.2 Performed By: #### L 300.3900 ####[facility] [address] [place], [address] Prothrombin timeOrdered By: Kvng Crisostomo on 05-22-2024 PT Coag (PPP) [Time] 30.3 s High 11.7-14.[address] [facility] [employer] normalized rat io (INR) calculationOrdered By: Kvng Crisostomo on 05-20-2024 INR Coag (Bld) [Relative time] 4.0 {INR} High [facility] Comment on above: CRITICAL VALUE CASEY D TO [id number]/14/25 08 Diana Srinivasan.RESULTS READ BACK BY SAME. Prothrombin Time w/INRon INR Coag (PPP) [Relative time] 4.0 {INR} Invalid Interpretation Code [facility] Comment on above: Order Comment: 411.2 Result Comment: CRIT ICAL VALUE CALLED TO [id number]/14/25 [facility] Diana Mattson.RESULTS READ BACK BY SAME. Performed By: #### L 300.3900 ####[facility] [address] [place], [place], [phone]) PT Coag (PPP) [Time] 39.9 s High 11.7-14.[address] [facility] Comment on above: Order Comment: 411.2 Performed By: #### L 300.3900 ####[facility] [address] [place], [place], [phone]) Prothrombin timeOrdered By: Kvng Crisostomo on 05-20-2024 PT Coag (PPP) [Time] 39.9 s High 11.7-14.[address] [facility] [employer] normalized rat io (INR) calculationOrdered By: Kvng Crisostomo on 05-19-2024 INR Coag (Bld) [Relative time] 3.4 {INR} [facility] Prothrombin Time w/INRon INR Coag (PPP) [Relative time] 3.4 {INR} Normal [facility] Comment on above: Order Comment: 411.2 Performed By: #### L 300.3900 ####[facility] [address] [place], [place], [phone]) PT Coag (PPP) [Time] 35.4 s High 11.7-14.[address] [facility] Comment on above: Order Comment: 411.2 Performed By: #### L 300.3900 ####[facility] [address] [place], [place], [phone]) Prothrombin timeOrdered By: Kvng Crisostomo on 05-19-2024 PT Coag (PPP) [Time] 35.4 s High 11.7-14.[address] [facility] [employer] normalized rat io (INR) calculationOrdered By: Kvng Crisostomo on 05-15-2024 INR Coag (Bld) [Relative time] 2.6 {INR} [facility] Prothrombin Time w/INRon INR Coag (PPP) [Relative time] 2.6 {INR} Normal [facility] Comment on above: Order Comment: 411.2 Performed By: #### L 300.3900 ####[facility] [address] [place], [place], [phone] PT Coag (PPP) [Time] 28.7 s High 11.7-14.[address] [facility] Comment on above: Order Comment: 411.2 Performed By: #### L 300.3900 ####[facility] [address] [place], [address] Prothrombin timeOrdered By: Kvng Crisostomo on 05-15-2024 PT Coag (PPP) [Time] 28.7 s High 11.7-14.[address] [facility] [employer] normalized rat io (INR) calculationOrdered By: Carlos Cavazos on 05-12-2024 INR Coag (Bld) [Relative time] 2.1 {INR} [facility] Prothrombin Time w/INRon INR Coag (PPP) [Relative time] 2.1 {INR} Normal [facility] Comment on above: Order Comment: 411-2 Performed By: #### L 300.3900 ####[facility] [address] [place], [address] PT Coag (PPP) [Time] 24.1 s High 11.7-14.[address] [facility] Comment on above: Order Comment: 411-2 Performed By: #### L 300.3900 ####[facility] [address] [place], [place], [phone] Prothrombin timeOrdered By: Carlos Cavazos on 05-12-2024 PT Coag (PPP) [Time] 24.1 s High 11.7-14.[address] [facility] [employer] normalized rat io (INR) calculationOrdered By: Kvng Crisostomo on 05-09-2024 INR Coag (Bld) [Relative time] 3.4 {INR} [facility] Prothrombin Time w/INRon INR Coag (PPP) [Relative time] 3.4 {INR} Normal [facility] Comment on above: Order Comment: 411.2 Performed By: #### L 300.3900 ####[facility] [address] [place], [place], [phone] PT Coag (PPP) [Time] 35.4 s High 11.7-14.[address] [facility] Comment on above: Order Comment: 411.2 Performed By: #### L 300.3900 ####[facility] [address] [place], [place], [phone] Prothrombin timeOrdered By: Kvng Crisostomo on 05-09-2024 PT Coag (PPP) [Time] 35.4 s High 11.7-14.[address] [facility] [employer] normalized rat io (INR) calculationOrdered By: Kvng Crisostomo on 05-08-2024 INR Coag (Bld) [Relative time] 4.1 {INR} High [facility] Comment on above: CRITICAL VALUE CASEY D TO [facility]05/08/24 0950 Karen Jamison.RESULTS READ BACK BY SAME. Prothrombin Time w/INRon INR Coag (PPP) [Relative time] 4.1 {INR} Invalid Interpretation Code [facility] Comment on above: Order Comment: 411.2 Result Comment: CRIT ICAL VALUE CALLED TO COBY HAIRSTONNJ05/08/24 0950 Karen Jamison.RESULTS READ BACK BY SAME. Performed By: #### L 300.3900 ####[facility] [address] [place], [address] PT Coag (PPP) [Time] 40.8 s High 11.7-14.[address] [facility] Comment on above: Order Comment: 411.2 Performed By: #### L 300.3900 ####[facility] [address] [place], [address] Prothrombin timeOrdered By: Babbaljeet Andressa on 05-08-2024 PT Coag (PPP) [Time] 40.8 s High 11.7-14.[address] [facility] [employer] normalized rat io (INR) calculationOrdered By: Babbaljeet Crisostomo on 05-05-2024 INR Coag (Bld) [Relative time] 3.2 {INR} [facility] Prothrombin Time w/INRon INR Coag (PPP) [Relative time] 3.2 {INR} Normal [facility] Comment on above: Order Comment: 411.2 Performed By: #### L 300.3900 ####[facility] [address] [place], [address] PT Coag (PPP) [Time] 32.5 s High 11.7-14.[address] [facility] Comment on above: Order Comment: 411.2 Performed By: #### L 300.3900 ####[facility] [address] [place], [address] Prothrombin timeOrdered By: Babbaljeet Crisostomo on 05-05-2024 PT Coag (PPP) [Time] 32.5 s High 11.7-14.[address] [facility] [employer] normalized rat io (INR) calculationOrdered By: Babbaljeet Crisostomo on 05-01-2024 INR Coag (Bld) [Relative time] 3.1 {INR} [facility] Prothrombin Time w/INRon INR Coag (PPP) [Relative time] 3.1 {INR} Normal [facility] Comment on above: Order Comment: 411.2 Performed By: #### L 300.3900 ####[facility] [address] [place], [address] PT Coag (PPP) [Time] 31.9 s High 11.7-14.[address] [facility] Comment on above: Order Comment: 411.2 Performed By: #### L 300.3900 ####[facility] [address] [place], [address] Prothrombin timeOrdered By: Kvng Crisostomo on 05-01-2024 PT Coag (PPP) [Time] 31.9 s High 11.7-14.[address] [facility] [employer] normalized rat io (INR) calculationOrdered By: Carlos Cavazos on 04-28-2024 INR Coag (Bld) [Relative time] 2.6 {INR} [facility] Prothrombin Time w/INRon INR Coag (PPP) [Relative time] 2.6 {INR} Normal [facility] Comment on above: Order Comment: 411-2 Performed By: #### L 300.3900 ####[facility] [address] [place], [address] PT Coag (PPP) [Time] 27.3 s High 11.7-14.[address] [facility] Comment on above: Order Comment: 411-2 Performed By: #### L 300.3900 ####[facility] [address] [place], [address] Prothrombin timeOrdered By: Carlos Cavazos on 04-28-2024 PT Coag (PPP) [Time] 27.3 s High 11.7-14.[address] [facility] [employer] normalized rat io (INR) calculationOrdered By: Kvng Crisostomo on 04-24-2024 INR Coag (Bld) [Relative time] 3.6 {INR} [facility] Prothrombin Time w/INRon INR Coag (PPP) [Relative time] 3.6 {INR} Normal [facility] Comment on above: Order Comment: 411.2 Performed By: #### L 300.3900 ####[facility] [address] [place], [address] PT Coag (PPP) [Time] 35.6 s High 11.7-14.[address] [facility] Comment on above: Order Comment: 411.2 Performed By: #### L 300.3900 ####[facility] [address] [place], [address] Prothrombin timeOrdered By: Kvng Crisostomo on 04-24-2024 PT Coag (PPP) [Time] 35.6 s High 11.7-14.[address] [facility] [employer] normalized rat io (INR) calculationOrdered By: Carlos Cavazos on 04-21-2024 INR Coag (Bld) [Relative time] 2.8 {INR} [facility] Prothrombin Time w/INRon INR Coag (PPP) [Relative time] 2.8 {INR} Normal [facility] Comment on above: Order Comment: 411-2 Performed By: #### L 300.3900 ####[facility] [address] [place], [address] PT Coag (PPP) [Time] 29.4 s High 11.7-14.[address] [facility] Comment on above: Order Comment: 411-2 Performed By: #### L 300.3900 ####[facility] [address] [place], [address] Prothrombin timeOrdered By: Carlos Cavazos on 04-21-2024 PT Coag (PPP) [Time] 29.4 s High 11.7-14.[address] [facility] [employer] normalized rat io (INR) calculationOrdered By: Kvng Crisostomo on 04-17-2024 INR Coag (Bld) [Relative time] 3.1 {INR} [facility] Prothrombin Time w/INRon INR Coag (PPP) [Relative time] 3.1 {INR} Normal [facility] Comment on above: Order Comment: 411.2 Performed By: #### L 300.3900 ####[facility] [address] [place], [place], [phone]) Prothrombin timeOrdered By: Kvng Crisostomo on 04-17-2024 PT Coag (PPP) [Time] 31.3 s High 11.7-14.[address] [facility] Comment on above: Order Comment: 411.2 Performed By: #### L 300.3900 ####[facility] [address] [place], [place], [phone]) International normalized rat io (INR) calculationOrdered By: Kvng Crisostomo on 04-14-2024 INR Coag (Bld) [Relative time] 3.3 {INR} [facility] Prothrombin Time w/INRon INR Coag (PPP) [Relative time] 3.3 {INR} Normal [facility] Comment on above: Order Comment: 411.2 Performed By: #### L 300.3900 ####[facility] [address] [place], [place], [phone]) PT Coag (PPP) [Time] 33.2 s High 11.7-14.[address] [facility] Comment on above: Order Comment: 411.2 Performed By: #### L 300.3900 ####[facility] [address] [place], [place], [phone]) Prothrombin timeOrdered By: Kvng Crisostomo on 04-14-2024 PT Coag (PPP) [Time] 33.2 s High 11.7-14.[address] [facility] [employer] normalized rat io (INR) calculationOrdered By: Kvng Crisostomo on 04-10-2024 INR Coag (Bld) [Relative time] 2.8 {INR} [facility] Prothrombin Time w/INRon INR Coag (PPP) [Relative time] 2.8 {INR} Normal [facility] Comment on above: Order Comment: 411.2 Performed By: #### L 300.3900 ####[facility] [address] [place], [address] PT Coag (PPP) [Time] 29.2 s High 11.7-14.[address] [facility] Comment on above: Order Comment: 411.2 Performed By: #### L 300.3900 ####[facility] [address] [place], [address] Prothrombin timeOrdered By: Kvng Crisostomo on 04-10-2024 PT Coag (PPP) [Time] 29.2 s High 11.7-14.[address] [facility] [employer] normalized rat io (INR) calculationOrdered By: Carlos Cavazos on 04-07-2024 INR Coag (Bld) [Relative time] 2.7 {INR} [facility] Prothrombin Time w/INRon INR Coag (PPP) [Relative time] 2.7 {INR} Normal [facility] Comment on above: Order Comment: 411-2 Performed By: #### L 300.3900 ####[facility] [address] [place], [address] PT Coag (PPP) [Time] 28.1 s High 11.7-14.[address] [facility] Comment on above: Order Comment: 411-2 Performed By: #### L 300.3900 ####[facility] [address] [place], [address] Prothrombin timeOrdered By: Carlos Cavazos on 04-07-2024 PT Coag (PPP) [Time] 28.1 s High 11.7-14.[address] [facility] [employer] normalized rat io (INR) calculationOrdered By: Kvng Crisostomo on 04-04-2024 INR Coag (Bld) [Relative time] 2.8 {INR} [facility] Prothrombin Time w/INRon INR Coag (PPP) [Relative time] 2.8 {INR} Normal [facility] Comment on above: Order Comment: 411.2 Performed By: #### L 300.3900 ####[facility] [address] [place], [address] PT Coag (PPP) [Time] 28.9 s High 11.7-14.[address] [facility] Comment on above: Order Comment: 411.2 Performed By: #### L 300.3900 ####[facility] [address] [place], [address] Prothrombin timeOrdered By: Kvng Crisostomo on 04-04-2024 PT Coag (PPP) [Time] 28.9 s High 11.7-14.[address] [facility] [employer] normalized rat io (INR) calculationOrdered By: Carlos Cavazos on 03-31-2024 INR Coag (Bld) [Relative time] 2.6 {INR} [facility] Prothrombin Time w/INRon INR Coag (PPP) [Relative time] 2.6 {INR} Normal [facility] Comment on above: Order Comment: 411-2 Performed By: #### L 300.3900 ####[facility] [address] [place], [address] PT Coag (PPP) [Time] 27.3 s High 11.7-14.[address] [facility] Comment on above: Order Comment: 411-2 Performed By: #### L 300.3900 ####[facility] [address] [place], [address] Prothrombin timeOrdered By: Carlos Cavazos on 03-31-2024 PT Coag (PPP) [Time] 27.3 s High 11.7-14.[address] [facility] [employer] normalized rat io (INR) calculationOrdered By: [employer] on 03-27-2024 INR Coag (Bld) [Relative time] 2.2 {INR} [facility] Prothrombin Time w/INRon INR Coag (PPP) [Relative time] 2.2 {INR} Normal [facility] Comment on above: Order Comment: 411.2 Performed By: #### L 300.3900 ####[facility] [address] [place], [address] PT Coag (PPP) [Time] 24.3 s High 11.7-14.[address] [facility] Comment on above: Order Comment: 411.2 Performed By: #### L 300.3900 ####[facility] [address] [place], [address] Prothrombin timeOrdered By: [employer] on 03-27-2024 PT Coag (PPP) [Time] 24.3 s High 11.7-14.[address] [facility] [employer] normalized rat io (INR) calculationOrdered By: Kvng Crisostomo on 03-24-2024 INR Coag (Bld) [Relative time] 1.8 {INR} [facility] Prothrombin Time w/INRon INR Coag (PPP) [Relative time] 1.8 {INR} Normal [facility] Comment on above: Order Comment: 411.2 Performed By: #### L 300.3900 ####[facility] [address] [place], [address] PT Coag (PPP) [Time] 20.7 s High 11.7-14.[address] [facility] Comment on above: Order Comment: 411.2 Performed By: #### L 300.3900 ####[facility] [address] [place], [address] Prothrombin timeOrdered By: Kvng Crisostomo on 03-24-2024 PT Coag (PPP) [Time] 20.7 s High 11.7-14.[address] [facility] [employer] normalized rat io (INR) calculationOrdered By: [employer] on 03-20-2024 INR Coag (Bld) [Relative time] 1.8 {INR} [facility] Prothrombin Time w/INRon INR Coag (PPP) [Relative time] 1.8 {INR} Normal [facility] Comment on above: Order Comment: 411.2 Performed By: #### L [id number] ####[facility] [address] [place], [address] PT Coag (PPP) [Time] 20.9 s High 11.7-14.[address] [facility] Comment on above: Order Comment: 411.2 Performed By: #### L [id number] ####[facility] [address] [place], [address] Prothrombin timeOrdered By: Lonoke [employer] on 03-20-2024 PT Coag (PPP) [Time] 20.9 s High 11.7-14.[address] [facility] International normalized rat io (INR) calculationOrdered By: Kvng Crisostomo on 03-19-2024 INR Coag (Bld) [Relative time] 2.4 {INR} [facility] Prothrombin Time w/INRon INR Coag (PPP) [Relative time] 2.4 {INR} Normal [facility] Comment on above: Order Comment: 411.2 Performed By: #### L [id number] ####[facility] [address] [place], [address] PT Coag (PPP) [Time] 26.4 s High 11.7-14.[address] [facility] Comment on above: Order Comment: 411.2 Performed By: #### L [id number] ####[facility] [address] [place], [address] Prothrombin timeOrdered By: Kvng Crisostomo on 03-19-2024 PT Coag (PPP) [Time] 26.4 s High 11.7-14.[address] [facility] International normalized rat io (INR) calculationOrdered By: [employer]oke [employer] on 03-18-2024 INR Coag (Bld) [Relative time] 3.2 {INR} [facility] Prothrombin timeOrdered By: [employer]oke [employer] on 03-18-2024 PT Coag (PPP) [Time] 32.3 s High 11.7-14.[address] [facility] International normalized rat io (INR) calculationOrdered By: [employer]oke [employer] on 03-17-2024 INR Coag (Bld) [Relative time] 3.6 {INR} [facility] Prothrombin timeOrdered By: [employer]oke [employer] on 03-17-2024 PT Coag (PPP) [Time] 35.7 s High 11.7-14.[address] [facility] [employer] normalized rat io (INR) calculationOrdered By: Carlos Cavazos on 03-14-2024 INR Coag (Bld) [Relative time] 3.5 {INR} [facility] Prothrombin timeOrdered By: Carlos Cavazos on 03-14-2024 PT Coag (PPP) [Time] 35.0 s High 11.7-14.[address] [facility] International normalized rat io (INR) calculationOrdered By: Lonoke [employer] on 03-13-2024 INR Coag (Bld) [Relative time] 3.2 {INR} [facility] Prothrombin timeOrdered By: Lonoke [employer] on 03-13-2024 PT Coag (PPP) [Time] 32.2 s High 11.7-14.[address] [facility] Office Visiton 09-13-2023 Follow-up visit [id number] GurpreetTamie 1950 M [address] Provider Department Center 09/13/2023 [id number] BUCK 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 Exam Date/Time: 09/06/2023 18:14 Procedure: CT ABDOMEN [...] pt has a hernia [facility] 36on 08-29-2023 36 Lm on daughters vm t o advise them to call the number for the power manager to get clarification, and to call back with further questions [place] [address]on 08-27-2023 36 Yes, they will need to call the number given to them. [facility] 36 Please advise [address] 08-21-2023 36 Name of caller: Zion holt Contact phone number: [phone] Relationship to Patient: patient Provider: MD Quinn Practice: [facility] Urology Chief Complaint/Reason [...] to reach out to call Maury Cedeño Plant Care Worker at [facility] [phone] to get clarifications. TEA did reach back out to [facility] and advised and provider Maury's #. Please advise Best time of day caller can be reached: Any Patient advised that office/PCP has 24-48 business hours to return their call: N/A Normal [facility] Laboratory - CoagulationOrde red By: Carlos Cavazos on 08-21-2023 INR Coag (Bld) [Relative time] 2.7 {INR} [facility] PT Coag (PPP) [Time] 28.9 s 11.7-14.[address] [facility] Office Visiton 08-13-2023 Follow-up visit [id number] Tamie Sifuentes cheng Gonzalez 1950 M [place] Provider Department Center 08/13/2023 [id number] BUCK 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 Glucose [Mass/Vol] 98 mg/dL 74-106 [facility] Hemoglobin (Bld) [Mass/Vol] 12.5 g/dL 13.0-16.5 [facility] Potassium [Moles/Vol] 4.3 mmol/L 3.5-5.1 [facility] Sodium [Moles/Vol] 135 mmol/L 136-145 [facility] WBC (Bld) [#/Vol] 13.0 10*3/uL 4.4-11.0 [facility] Determination of erythrocyte mean corpuscular volume (MCV)Ordered By: Carlos Cavazos on 07-20-2023 MCV (RBC) [Entitic vol] 86.2 fL 80-94 [facility] Erythrocyte distribution wid th ratioOrdered By: Carlos Cavazos on 07-20-2023 Erythrocyte distribution width (RBC) [Ratio] 15.3 % 11.6-14.6 [facility] Erythrocyte distribution wid th standard deviationOrdered By: Carlos Cavazos on 07-20-2023 Erythrocyte distribution width (RBC) [Entitic vol] 48.1 fL 35.1-43.9 [facility] Hematocrit Auto (Bld) [Volum e fraction]Ordered By: Carlos Cavazos on 07-20-2023 Hematocrit (Bld) [Volume fraction] 39.9 % 40-54 [facility] Laboratory - Chemistry and C hemistry - challengeOrdered By: Carlos Cavazos on 07-20-2023 CO2 [Moles/Vol] 24.0 mmol/L 21.0-32.0 [facility] Urea nitrogen/Creatinine [Mass ratio] 24.6 mg/mg 10-20 [facility] Laboratory - Hematology and Cell countsOrdered By: Carlos Cavazos on 07-20-2023 MCH (RBC) [Entitic mass] 27.0 pg 27.0-32.0 [facility] MCHC (RBC) [Mass/Vol] 31.3 g/dL 32-36 [facility] Platelet mean volume (Bld) [Entitic vol] 10.7 fL 6.2-12.0 [facility] Platelets (Bld) [#/Vol] 260 10*3/uL 150-450 [facility] No Panel InformationOrdered By: Carlos Cavazos on 03-15-2024 Estimated GFR (MDRD) Amer 114 mL/min >60 [facility] Comment on above: GFR Calc Estimated GFR (MDRD) Non-Af Amer 94 mL/min >60 [facility] Comment on above: Non- GFR Calc RBC Auto (Bld) [#/Vol]Ordere d By: Carlos Cavazos on 07-20-2023 RBC (Bld) [#/Vol] 4.63 10*6/uL 4.6-6.2 [facility] Serum or plasma calcium oral urement (mass/volume)Ordered By: Carlos Cavazos on 07-20-2023 Calcium [Mass/Vol] 8.6 mg/dL 8.5-10.1 [facility] Serum or plasma creatinine [...] Urea nitrogen [Mass/Vol] 21 mg/dL 7-18 [facility] Thin prep Papanicolaou smear with manual screeningOrdered By: Carlos Cavazos on 07-20-2023 Thin prep Papanicolaou smear with manual screening 5 5-15 [facility] Basophil percentageOrdered B y: Carlos Cavazos on 07-18-2023 Chloride [Moles/Vol] 102 mmol/L 98-[address] [facility] Glucose [Mass/Vol] 96 mg/dL 74-106 [facility] Hemoglobin (Bld) [Mass/Vol] 12.3 g/dL 13.0-16.5 [facility] Potassium [Moles/Vol] 4.2 mmol/L 3.5-5.1 [facility] Sodium [Moles/Vol] 136 mmol/L 136-145 [facility] WBC (Bld) [#/Vol] 14.7 10*3/uL 4.4-11.0 [facility] Determination of erythrocyte mean corpuscular volume (MCV)Ordered By: Carlos Cavazos on 07-18-2023 MCV (RBC) [Entitic vol] 85.4 fL 80-94 [facility] Erythrocyte distribution wid th ratioOrdered By: Carlos Cavazos on 07-18-2023 Erythrocyte distribution width (RBC) [Ratio] 15.1 % 11.6-14.6 [facility] Erythrocyte distribution wid th standard deviationOrdered By: Carlos Cavazos on 07-18-2023 Erythrocyte distribution width (RBC) [Entitic vol] 47.3 fL 35.1-43.9 [facility] Hematocrit Auto (Bld) [Volum e fraction]Ordered By: Carlos Cavazos on 07-18-2023 Hematocrit (Bld) [Volume fraction] 39.3 % 40-54 [facility] Laboratory - Chemistry and C hemistry - challengeOrdered By: Carlos Cavazos on 07-18-2023 CO2 [Moles/Vol] 27.0 mmol/L 21.0-32.0 [facility] Urea nitrogen/Creatinine [Mass ratio] 24.4 mg/mg 10-20 [facility] Laboratory - Hematology and Cell countsOrdered By: Carlos Cavazos on 07-18-2023 MCH (RBC) [Entitic mass] 26.7 pg 27.0-32.0 [facility] MCHC (RBC) [Mass/Vol] 31.3 g/dL 32-36 [facility] Platelet mean volume (Bld) [Entitic vol] 10.3 fL 6.2-12.0 [facility] Platelets (Bld) [#/Vol] 288 10*3/uL 150-450 [facility] No Panel InformationOrdered By: Carlos Cavazos on 07-18-2023 Estimated GFR (MDRD) Amer 113 mL/min >60 [facility] Comment on above: GFR Calc Estimated GFR (MDRD) Non-Af Amer 93 mL/min >60 [facility] Comment on above: Non- GFR Calc RBC Auto (Bld) [#/Vol]Ordere d By: Carlos Cavazos on 07-18-2023 RBC (Bld) [#/Vol] 4.60 10*6/uL 4.6-6.2 [facility] Serum or plasma calcium oral urement (mass/volume)Ordered By: Carlos Cavazos on 07-18-2023 Calcium [Mass/Vol] 8.9 mg/dL 8.5-10.1 [facility] Serum or plasma creatinine [...] Urea nitrogen [Mass/Vol] 21 mg/dL 7-18 [facility] Thin prep Papanicolaou smear with manual screeningOrdered By: Carlos Cavazos on 07-18-2023 Thin prep Papanicolaou smear with manual screening 7 5-15 [facility] Basophil percentageOrdered B y: Carlos Cavazos on 07-17-2023 Basophil percentage 0-5 SEEN /hpf 0-5 [facility] Bilirubin Test strip Ql (U)O rdered By: Carlos Cavazos on 07-17-2023 Bilirubin Ql (U) Negative Negative [facility] Calcium oxalate crystals det ection in urine sediment by light microscopyOrdered By: Carlos Cavazos on 07-17-2023 Calcium oxalate crystals LM Ql (Urine sed) 1+ /hpf [facility] Culture, urineOrdered By: Sharif Crouch on 07-17-2023 Bacteria identified Cx Nom (U) Positive [facility] Ketones Test strip Ql (U)Ord ered By: Carlos Cavazos on 07-17-2023 Ketones Ql (U) Negative Negative [facility] Mucus LM Ql (Urine sed)Order ed By: Carlos Cavazos on 07-17-2023 Mucus Ql (Urine sed) 0 SEEN /hpf [facility] Nitrite Test strip Ql (U)Ord ered By: Carlos Cavazos on 07-17-2023 Nitrite Ql (U) Negative Negative [facility] No Panel InformationOrdered By: Carlos Cavazos on 07-17-2023 Urine RBC 0 SEEN /hpf 0-5 [facility] Protein Test strip Ql (U)Ord ered By: Carlos Cavazos on 07-17-2023 Protein Ql (U) Negative Negative [facility] Squamous epithelial cells de tection in urine sediment by light microscopyOrdered By: Carlos Cavazos on 07-17-2023 Epithelial cells.squamous LM Ql (Urine sed) 0-5 SEEN /hpf 0-5 [facility] Urine blood detectionOrdered By: Carlos Cavazos on 07-17-2023 RBC Ql (U) Negative Negative [facility] Urine clarityOrdered By: Ted Cavazos on 07-17-2023 Clarity (U) Clear Clear [facility] Urine color determinationOrd ered By: Carlos Cavazos on 07-17-2023 Color (U) Yellow Yellow [facility] Urine glucose detectionOrder ed By: Carlos Cavazos on 07-17-2023 Glucose Ql (U) Normal mg/dl Normal [facility] Urine leukocyte esterase det ection by dipstickOrdered By: Carlos Cavazos on 07-17-2023 Leukocyte esterase Test strip Ql (U) 25 /ul Negative [facility] Urine pHOrdered By: Carlos flores on 07-17-2023 pH (U) 6.0 [pH] 5.0 - 8.0 [facility] Urine sediment bacteria coun t by microscopy (number/high power field)Ordered By: Carlos Cavazos on 07-17-2023 Bacteria LM.HPF (Urine sed) [#/Area] 0 /[HPF] None Seen [facility] Urine specific gravity measu rementOrdered By: Carlos Cavazos on 07-17-2023 Specific gravity (U) [Rel density] 1.020 1.002-1.030 [facility] Urine urobilinogen measureme ntOrdered By: Carlos Cavazos on 07-17-2023 Urobilinogen Ql (U) Normal mg/dl Normal [facility] Absolute lymphocyte countOrd ered By: Carlos Cavazos on 07-16-2023 Lymphocytes Auto (Unsp spec) [#/Vol] 6.02 10*3/uL 0.83-4.51 [facility] Automated lymphocyte count a s percentage of total leukocytesOrdered By: Carlos Cavazos on 07-16-2023 Lymphocytes/100 WBC Auto (Unsp spec) 49.1 % 19-41 [facility] Basophil percentageOrdered B y: Carlos Cavazos on 07-16-2023 Basophils/100 WBC (Bld) 0.6 % 0-1 [facility] Chloride [Moles/Vol] 105 mmol/L 98-[address] [facility] Eosinophils/100 WBC (Bld) 2.0 % 0-5 [facility] Glucose [Mass/Vol] 93 mg/dL 74-106 [facility] Hemoglobin (Bld) [Mass/Vol] 12.1 g/dL 13.0-16.5 [facility] Monocytes/100 WBC (Bld) 5.3 % 0-10 [facility] Neutrophils (Bld) [#/Vol] 5.2 10*3/uL 2.0-7.7 [facility] Neutrophils/100 WBC (Bld) 42.8 % 47-70 [facility] Potassium [Moles/Vol] 4.3 mmol/L 3.5-5.1 [facility] Sodium [Moles/Vol] 138 mmol/L 136-145 [facility] WBC (Bld) [#/Vol] 12.3 10*3/uL 4.4-11.0 [facility] Blood manual differential co mment interpretation (narrative result)Ordered By: Carlos Cavazos on 07-16-2023 Manual differential comment Shemar (Bld) [Interp] SCANNED [facility] Determination of erythrocyte mean corpuscular volume (MCV)Ordered By: Carlos Cavazos on 07-16-2023 MCV (RBC) [Entitic vol] 86.8 fL 80-94 [facility] Erythrocyte distribution wid th ratioOrdered By: Carlos Cavazos on 07-16-2023 Erythrocyte distribution width (RBC) [Ratio] 15.3 % 11.6-14.6 [facility] Erythrocyte distribution wid th standard deviationOrdered By: Carlos Cavazos on 07-16-2023 Erythrocyte distribution width (RBC) [Entitic vol] 48.9 fL 35.1-43.9 [facility] Hematocrit Auto (Bld) [Volum e fraction]Ordered By: Carlos Cavazos on 07-16-2023 Hematocrit (Bld) [Volume fraction] 38.7 % 40-54 [facility] Immature granulocytes/100 WB C Auto (Bld)Ordered By: Carlos Cavazos on 07-16-2023 Immature granulocytes/100 WBC (Bld) 0.200 % 0.0-0.9 [facility] Comment on above: IG% - Immature Granu locytes (promyelocytes, myelocytes and metamyelocytes) > 1% indicates that a LEFT SHIFT is Present. Laboratory - Chemistry and C hemistry - challengeOrdered By: Carlos Cavazos on 07-16-2023 CO2 [Moles/Vol] 25.0 mmol/L 21.0-32.0 [facility] Urea nitrogen/Creatinine [Mass ratio] 21.0 mg/mg 10-20 [facility] Laboratory - CoagulationOrde red By: Carlos Cavazos on 07-16-2023 INR Coag (Bld) [Relative time] 2.4 {INR} [facility] PT Coag (PPP) [Time] 25.7 s 11.7-14.[address] [facility] Laboratory - Hematology and Cell countsOrdered By: Carlos Cavazos on 07-16-2023 MCH (RBC) [Entitic mass] 27.1 pg 27.0-32.0 [facility] MCHC (RBC) [Mass/Vol] 31.3 g/dL 32-36 [facility] Nucleated RBC/100 WBC (Bld) [Ratio] 0 % 0-5 [facility] Platelet mean volume (Bld) [Entitic vol] 10.5 fL 6.2-12.0 [facility] Platelets (Bld) [#/Vol] 289 10*3/uL 150-450 [facility] No Panel InformationOrdered By: Carlos Cavazos on 07-16-2023 Estimated GFR (MDRD) Amer 106 mL/min >60 [facility] Comment on above: GFR Calc Estimated GFR (MDRD) Non-Af Amer 88 mL/min >60 [facility] Comment on above: Non- GFR Calc Reactive Lymphocytes 1+ [facility] RBC Auto (Bld) [#/Vol]Ordere d By: Carlos Cavazos on 07-16-2023 RBC (Bld) [#/Vol] 4.46 10*6/uL 4.6-6.2 [facility] Serum or plasma calcium oral urement (mass/volume)Ordered By: Carlos Cavazos on 07-16-2023 Calcium [Mass/Vol] 9.0 mg/dL 8.5-10.1 [facility] Serum or plasma creatinine [...] Urea nitrogen [Mass/Vol] 19 mg/dL 7-18 [facility] Thin prep Papanicolaou smear with manual screeningOrdered By: Carlos Cavazos on 07-16-2023 Thin prep Papanicolaou smear with manual screening 8 5-15 [facility] Absolute lymphocyte countOrd ered By: Carlos Cavazos on 07-13-2023 Lymphocytes Auto (Unsp spec) [#/Vol] 5.44 10*3/uL 0.83-4.51 [facility] Automated lymphocyte count a s percentage of total leukocytesOrdered By: Carlos Cavazos on 07-13-2023 Lymphocytes/100 WBC Auto (Unsp spec) 47.3 % 19-41 [facility] Basophil percentageOrdered B y: Carlos Cavazos on 07-13-2023 Basophils/100 WBC (Bld) 0.4 % 0-1 [facility] Chloride [Moles/Vol] 107 mmol/L 98-[address] [facility] Eosinophils/100 WBC (Bld) 1.7 % 0-5 [facility] Glucose [Mass/Vol] 96 mg/dL 74-106 [facility] Hemoglobin (Bld) [Mass/Vol] 13.5 g/dL 13.0-16.5 [facility] Monocytes/100 WBC (Bld) 4.3 % 0-10 [facility] Neutrophils (Bld) [#/Vol] 5.3 10*3/uL 2.0-7.7 [facility] Neutrophils/100 WBC (Bld) 46.0 % 47-70 [facility] Potassium [Moles/Vol] 4.0 mmol/L 3.5-5.1 [facility] Sodium [Moles/Vol] 139 mmol/L 136-145 [facility] WBC (Bld) [#/Vol] 11.5 10*3/uL 4.4-11.0 [facility] Determination of erythrocyte mean corpuscular volume (MCV)Ordered By: Carlos Cavazos on 07-13-2023 MCV (RBC) [Entitic vol] 86.1 fL 80-94 [facility] Erythrocyte distribution wid th ratioOrdered By: Carlos Cavazos on 07-13-2023 Erythrocyte distribution width (RBC) [Ratio] 15.2 % 11.6-14.6 [facility] Erythrocyte distribution wid th standard deviationOrdered By: Carlos Cavazos on 07-13-2023 Erythrocyte distribution width (RBC) [Entitic vol] 48.0 fL 35.1-43.9 [facility] Hematocrit Auto (Bld) [Volum e fraction]Ordered By: Carlos Cavazos on 07-13-2023 Hematocrit (Bld) [Volume fraction] 42.2 % 40-54 [facility] Immature granulocytes/100 WB C Auto (Bld)Ordered By: Carlos Cavazos on 07-13-2023 Immature granulocytes/100 WBC (Bld) 0.300 % 0.0-0.9 [facility] Comment on above: IG% - Immature Granu locytes (promyelocytes, myelocytes and metamyelocytes) > 1% indicates that a LEFT SHIFT is Present. Laboratory - Chemistry and C hemistry - challengeOrdered By: Carlos Cavazos on 07-13-2023 CO2 [Moles/Vol] 26.0 mmol/L 21.0-32.0 [facility] Urea nitrogen/Creatinine [Mass ratio] 21.8 mg/mg 10-20 [facility] Laboratory - Hematology and Cell countsOrdered By: Carlos Cavazos on 07-13-2023 MCH (RBC) [Entitic mass] 27.6 pg 27.0-32.0 [facility] MCHC (RBC) [Mass/Vol] 32.0 g/dL 32-36 [facility] Nucleated RBC/100 WBC (Bld) [Ratio] 0 % 0-5 [facility] Platelet mean volume (Bld) [Entitic vol] 10.1 fL 6.2-12.0 [facility] Platelets (Bld) [#/Vol] 279 10*3/uL 150-450 [facility] No Panel InformationOrdered By: Carlos Cavazos on 07-13-2023 Estimated GFR (MDRD) Amer 118 mL/min >60 [facility] Comment on above: GFR Calc Estimated GFR (MDRD) Non-Af Amer 98 mL/min >60 [facility] Comment on above: Non- GFR Calc Levetiracetam (Keppra) Level 25.5 ug/mL 10.0-40.0 [facility] Comment on above: Performed at: [employer] [address] [id number] Director: Alpesh Vázquez MD, Phone: [phone] RBC Auto (Bld) [#/Vol]Ordere d By: Carlos Cavazos on 07-13-2023 RBC (Bld) [#/Vol] 4.90 10*6/uL 4.6-6.2 [facility] Serum or plasma calcium oral urement (mass/volume)Ordered By: Carlos Cavazos on 07-13-2023 Calcium [Mass/Vol] 9.1 mg/dL 8.5-10.1 [facility] Serum or plasma creatinine [...] Urea nitrogen [Mass/Vol] 18 mg/dL 7-18 [facility] Thin prep Papanicolaou smear with manual screeningOrdered By: Carlos Cavazos on 07-13-2023 Thin prep Papanicolaou smear with manual screening 6 5-15 [facility] No Panel InformationOrdered By: Carlos Cavazos on 07-12-2023 Valproic Acid (Depakene) Level < 3 ug/mL 50-100 [facility] Laboratory - CoagulationOrde red By: Carlos Cavazos on 07-05-2023 INR Coag (Bld) [Relative time] 2.4 {INR} [facility] PT Coag (PPP) [Time] 26.3 s 11.7-14.[address] [facility] Laboratory - CoagulationOrde red By: Carlos Cavazos on 07-02-2023 INR Coag (Bld) [Relative time] 1.5 {INR} [facility] PT Coag (PPP) [Time] 18.5 s 11.7-14.[address] [facility] Laboratory - CoagulationOrde red By: Carlos Cavazos on 06-28-2023 INR Coag (Bld) [Relative time] 1.7 {INR} [facility] PT Coag (PPP) [Time] 20.5 s 11.7-14.[address] [facility] 36on 06-25-2023 36 [facility] called in stating appt scheduled 07/10/23 Remer has to be made further out, pt being transported by cot. Changed appt to 08/13/23 per [facility] only avail time for transport, first avail with DR Buck at 10:00 AM. [facility] Laboratory - CoagulationOrde red By: Carlos Cavazos on 06-25-2023 INR Coag (Bld) [Relative time] 3.8 {INR} [facility] PT Coag (PPP) [Time] 38.2 s 11.7-14.[address] [facility] Laboratory - CoagulationOrde red By: Carlos Cavazos on 06-21-2023 INR Coag (Bld) [Relative time] 3.2 {INR} [facility] PT Coag (PPP) [Time] 32.9 s 11.7-14.[address] [facility] No Panel InformationOrdered By: Carlos Cavazos on 06-13-2023 Valproic Acid (Depakene) Level < 3 ug/mL 50-100 [facility] Laboratory - CoagulationOrde red By: Carlos Cavazos on 06-06-2023 PT Coag (PPP) [Time] 30.5 s 11.7-14.[address] [facility] Platelet poor plasma interna tional normalized ratio (INR)Ordered By: Carlos Cavazos on 06-06-2023 INR Coag (PPP) [Relative time] 2.9 {INR} [facility] International normalized rat io (INR) calculationOrdered By: Carlos Cavazos on 05-23-2023 INR Coag (PPP) [Relative time] 2.6 {INR} [facility] Laboratory - CoagulationOrde red By: Carlos Cavazos on 05-23-2023 PT Coag (PPP) [Time] 27.7 s 11.7-14.[address] [facility] Laboratory - CoagulationOrde red By: Carlos Cavazos on 05-09-2023 PT Coag (PPP) [Time] 24.1 s 11.7-14.[address] [facility] Whole blood international no rmalized ratio (INR)Ordered By: Carlos Cavazos on 05-09-2023 INR Coag (Bld) [Relative time] 2.1 {INR} [facility] Laboratory - CoagulationOrde red By: Carlos Cavazos on 04-23-2023 PT Coag (PPP) [Time] 26.4 s 11.7-14.[address] [facility] Whole blood international no rmalized ratio (INR)Ordered By: Carlos Cavazos on 04-23-2023 INR Coag (Bld) [Relative time] 2.4 {INR} [facility] INR in Blood by Coagulation assayOrdered By: Carlos Cavazos on 04-09-2023 INR Coag (Bld) [Relative time] 2.1 {INR} [facility] Laboratory - CoagulationOrde red By: Carlos Cavazos on 04-09-2023 PT Coag (PPP) [Time] 23.9 s 11.7-14.[address] [facility] INR in Blood by Coagulation assayOrdered By: Carlos Cavazos on 04-02-2023 INR Coag (Bld) [Relative time] 2.2 {INR} [facility] Laboratory - CoagulationOrde red By: Carlos Cavazos on 04-02-2023 PT Coag (PPP) [Time] 24.5 s 11.7-14.[address] [facility] INR in Blood by Coagulation assayOrdered By: Carlos Cavazos on 03-26-2023 INR Coag (Bld) [Relative time] 1.7 {INR} [facility] Laboratory - CoagulationOrde red By: Carlos Cavazos on 03-26-2023 PT Coag (PPP) [Time] 19.9 s 11.7-14.[address] [facility] INR in Blood by Coagulation assayOrdered By: Carlos Cavazos on 03-22-2023 INR Coag (Bld) [Relative time] 1.3 {INR} [facility] Laboratory - CoagulationOrde red By: Carlos Cavazos on 03-22-2023 PT Coag (PPP) [Time] 16.4 s 11.7-14.[address] [facility] INR in Blood by Coagulation assayOrdered By: Carlos Cavazos on 03-08-2023 INR Coag (Bld) [Relative time] 2.0 {INR} [facility] - CoagulationOrde red By: Carlos Cavazos on 03-08-2023 PT Coag (PPP) [Time] 22.5 s 11.7-14.[address] [facility] - CoagulationOrde red By: Carlos Cavazos on 02-22-2023 INR Coag (Bld) [Relative time] 2.2 {INR} [facility] Comment on above: Critical Value > 4.0 Whole blood prothrombin time Ordered By: Carlos Cavazos on 02-22-2023 PT Coag (Bld) [Time] 24.0 s 11.7-14.[address] [facility] INR in Blood by Coagulation assayOrdered By: Cliff Bruner on 02-15-2023 INR Coag (Bld) [Relative time] 2.0 {INR} [facility] - CoagulationOrde red By: Cliff Bruner on 02-15-2023 PT Coag (PPP) [Time] 22.8 s 11.7-14.[address] [facility] INR in Blood by Coagulation assayOrdered By: Carlos Cavazos on 02-08-2023 INR Coag (Bld) [Relative time] 2.1 {INR} [facility] - CoagulationOrde red By: Carlos Cavazos on 02-08-2023 PT Coag (PPP) [Time] 23.5 s 11.7-14.[address] [facility] INR in Blood by Coagulation assayOrdered By: Carlos Cavazos on 01-31-2023 INR Coag (Bld) [Relative time] 2.0 {INR} [facility] - CoagulationOrde red By: Carlos Cavazos on 01-31-2023 PT Coag (PPP) [Time] 22.4 s 11.7-14.[address] [facility] - CoagulationOrde red By: Carlos Cavazos on 01-29-2023 INR Coag (Bld) [Relative time] 1.8 {INR} [facility] Comment on above: Critical Value > 4.0 Whole blood prothrombin time Ordered By: Carlos Cavazos on 01-29-2023 PT Coag (Bld) [Time] 19.9 s 11.7-14.[address] [facility] INR in Blood by Coagulation assayOrdered By: Carlos Cavazos on 01-26-2023 INR Coag (Bld) [Relative time] 1.5 {INR} [facility] - CoagulationOrde red By: Carlos Cavazos on 01-26-2023 PT Coag (PPP) [Time] 18.3 s 11.7-14.[address] [facility] INR in Blood by Coagulation assayOrdered By: Carlos Cavazos on 01-24-2023 INR Coag (Bld) [Relative time] 1.3 {INR} [facility] - CoagulationOrde red By: Carlos Cavazos on 01-24-2023 PT Coag (PPP) [Time] 16.2 s 11.7-14.[address] [facility] Basophil percentageOrdered B y: Carlos Cavazos on 01-22-2023 Basophil percentage 0 SEEN /hpf 0-[address] [facility] Bilirubin Test strip Ql (U)O rdered By: Carlos Cavazos on 01-22-2023 Bilirubin Ql (U) Negative Negative [facility] Calcium oxalate crystals det ection in urine sediment by light microscopyOrdered By: Carlos Cavazos on 01-22-2023 Calcium oxalate crystals LM Ql (Urine sed) 1+ /hpf [facility] Culture, urineOrdered By: Sharif Crouch on 01-22-2023 Bacteria identified Cx Nom (U) Positive [facility] Ketones Test strip Ql (U)Ord ered By: Carlos Cavazos on 01-22-2023 Ketones Ql (U) Negative Negative [facility] Mucus LM Ql (Urine sed)Order ed By: Carlos Cavazos on 01-22-2023 Mucus Ql (Urine sed) 1+ /hpf [facility] Nitrite Test strip Ql (U)Ord ered By: Carlos Cavazos on 01-22-2023 Nitrite Ql (U) Negative Negative [facility] Protein Test strip Ql (U)Ord ered By: Carlos Cavazos on 01-22-2023 Protein Ql (U) Negative Negative [facility] Squamous epithelial cells de tection in urine sediment by light microscopyOrdered By: Carlos Cavazos on 01-22-2023 Epithelial cells.squamous LM Ql (Urine sed) 0 SEEN /hpf 0-5 [facility] Urine blood detectionOrdered By: Carlos Cavazos on 01-22-2023 RBC Ql (U) Negative Negative [facility] RBC Ql (U) 0 SEEN /hpf 0-5 [facility] Urine clarityOrdered By: Ted Cvaazos on 01-22-2023 Clarity (U) Sl. Cloudy Clear [facility] Urine color determinationOrd ered By: Carlos Cavazos on 01-22-2023 Color (U) Yellow Yellow [facility] Urine glucose detectionOrder ed By: Carlos Cavazos on 01-22-2023 Glucose Ql (U) Normal mg/dl Normal [facility] Urine leukocyte esterase det ection by dipstickOrdered By: Carlos Cavazos on 01-22-2023 Leukocyte esterase Test strip Ql (U) Negative Negative [facility] Urine pHOrdered By: Carlos flores on 01-22-2023 pH (U) 5.0 [pH] 5.0 - 8.0 [facility] Urine sediment bacteria coun t by microscopy (number/high power field)Ordered By: Carlos Cavazos on 01-22-2023 Bacteria LM.HPF (Urine sed) [#/Area] 2 /[HPF] None Seen [facility] Urine specific gravity measu rementOrdered By: Carlos Cavazos on 01-22-2023 Specific gravity (U) [Rel density] 1.025 1.002-1.030 [facility] Urobilinogen Auto test strip Ql (U)Ordered By: Carlos Cavazos on 01-22-2023 Urobilinogen Ql (U) Normal mg/dl Normal [facility] INR in Blood by Coagulation assayOrdered By: Carlos Cavazos on 01-10-2023 INR Coag (Bld) [Relative time] 2.0 {INR} [facility] - CoagulationOrde red By: Carlos Cavazos on 01-10-2023 PT Coag (PPP) [Time] 22.6 s 11.7-14.[address] [facility] INR in Blood by Coagulation assayOrdered By: Carlos Cavazos on 12-27-2022 INR Coag (Bld) [Relative time] 2.1 {INR} [facility] - CoagulationOrde red By: Carlos Cavazos on 12-27-2022 PT Coag (PPP) [Time] 24.1 s 11.7-14.[address] [facility] INR in Blood by Coagulation assayOrdered By: Carlos Cavazos on 12-21-2022 INR Coag (Bld) [Relative time] 2.4 {INR} [facility] - CoagulationOrde red By: Carlos Cavazos on 12-21-2022 PT Coag (PPP) [Time] 26.7 s 11.7-14.[address] [facility] - CoagulationOrde red By: Carlos Cavazos on 12-14-2022 INR Coag (Bld) [Relative time] 2.3 {INR} [facility] Comment on above: Critical Value > 4.0 Whole blood prothrombin time Ordered By: Carlos Cavazos on 12-14-2022 PT Coag (Bld) [Time] 25.2 s 11.7-14.[address] [facility] - CoagulationOrde red By: Carlos Cavazos on 12-07-2022 INR Coag (Bld) [Relative time] 2.5 {INR} [facility] Comment on above: Critical Value > 4.0 Whole blood prothrombin time Ordered By: Carlos Cavazos on 12-07-2022 PT Coag (Bld) [Time] 26.9 s 11.7-14.[address] [facility] Amorphous sediment detection in urine sediment by light microscopyOrdered By: Carlos Cavazos on 07-21-2023 Amorphous sediment LM Ql (Urine sed) 1+ [facility] Basophil percentageOrdered B y: Carlos Cavazos on 11-24-2022 Basophil percentage 0 SEEN /hpf 0-[address] [facility] Bilirubin [Mass/Vol] 0.30 mg/dL 0.20-1.[address] [facility] Comment on above: For patients on eltr ombopag therapy, use of Dimension [employer] TBIL is not recommended. Chloride [Moles/Vol] 107 mmol/L 98-[address] [facility] Glucose [Mass/Vol] 95 mg/dL 74-106 [facility] Potassium [Moles/Vol] 4.2 mmol/L 3.5-5.1 [facility] Protein [Mass/Vol] 6.9 g/dL 6.4-8.2 [facility] Sodium [Moles/Vol] 138 mmol/L 136-145 [facility] WBC (Bld) [#/Vol] 10.4 10*3/uL 4.4-11.0 [facility] Bilirubin Test strip Ql (U)O rdered By: Carlos Cavazos on 11-24-2022 Bilirubin Ql (U) Negative Negative [facility] Blood erythrocytes count (nu mber/volume)Ordered By: Carlos Cavazos on 11-24-2022 RBC (Bld) [#/Vol] 4.44 10*6/uL 4.6-6.2 [facility] Blood hemoglobin measurement (mass/volume)Ordered By: Carlos Cavazos on 11-24-2022 Hemoglobin (Bld) [Mass/Vol] 11.8 g/dL 13.0-16.5 [facility] Blood platelet mean volumeOr dered By: Carlos Cavazos on 11-24-2022 Platelet mean volume (Bld) [Entitic vol] 9.7 fL 6.2-12.0 [facility] Calcium oxalate crystals det ection in urine sediment by light microscopyOrdered By: Carlos Cavazos on 11-24-2022 Calcium oxalate crystals LM Ql (Urine sed) RARE /hpf [facility] Culture, urineOrdered By: Sharif Crouch on 11-24-2022 Bacteria identified Cx Nom (U) Positive [facility] Determination of erythrocyte mean corpuscular volume (MCV)Ordered By: Carlos Cavazos on 11-24-2022 MCV (RBC) [Entitic vol] 84.7 fL 80-94 [facility] Hematocrit Auto (Bld) [Volum e fraction]Ordered By: Carlos Cavazos on 11-24-2022 Hematocrit (Bld) [Volume fraction] 37.6 % 40-54 [facility] Ketones Test strip Ql (U)Ord ered By: Carlos Cavazos on 11-24-2022 Ketones Ql (U) Negative Negative [facility] - Chemistry and C hemistry - challengeOrdered By: Carlos Cavazos on 11-24-2022 ALP [Catalytic activity/Vol] 103 U/L 45-117 [facility] ALT [Catalytic activity/Vol] 14 U/L 16-61 [facility] CO2 [Moles/Vol] 26.0 mmol/L 21.0-32.0 [facility] Globulin (S) [Mass/Vol] 4.0 g/dL 2.2-4.2 [facility] Urea nitrogen/Creatinine [Mass ratio] 24.1 mg/mg 10-20 [facility] - Hematology and Cell countsOrdered By: Carlos Cavazos on 11-24-2022 Erythrocyte distribution width (RBC) [Entitic vol] 49.4 fL 35.1-43.9 [facility] Erythrocyte distribution width (RBC) [Ratio] 16.0 % 11.6-14.6 [facility] MCH (RBC) [Entitic mass] 26.6 pg 27.0-32.0 [facility] MCHC Auto (RBC) [Mass/Vol]Or dered By: Carlos Cavazos on 11-24-2022 MCHC (RBC) [Mass/Vol] 31.4 g/dL 32-36 [facility] Mucus LM Ql (Urine sed)Order ed By: Carlos Cavazos on 11-24-2022 Mucus Ql (Urine sed) 0 SEEN /hpf [facility] Nitrite Test strip Ql (U)Ord ered By: Carlos Cavazos on 11-24-2022 Nitrite Ql (U) Negative Negative [facility] No Panel InformationOrdered By: Carlos Cavazos on 11-24-2022 Estimated GFR (MDRD) Amer 118 mL/min >60 [facility] Comment on above: GFR Calc Estimated GFR (MDRD) Non-Af Amer 97 mL/min >60 [facility] Comment on above: Non- GFR Calc Platelets bldOrdered By: Ted Cavazos on 11-24-2022 Platelets (Bld) [#/Vol] 309 10*3/uL 150-450 [facility] Protein Test strip Ql (U)Ord ered By: Carlos Cavazos on 11-24-2022 Protein Ql (U) Negative Negative [facility] Serum or plasma albumin oral urement (mass/volume)Ordered By: Carlos Cavazos on 11-24-2022 Albumin [Mass/Vol] 2.9 g/dL 3.2-5.0 [facility] Serum or plasma albumin/glob ulin mass ratioOrdered By: Carlos Cavazos on 11-24-2022 Albumin/Globulin [Mass ratio] 0.7 {ratio} 0.9-2.4 [facility] Serum or plasma calcium oral urement (mass/volume)Ordered By: Carlos Cavazos on 11-24-2022 Calcium [Mass/Vol] 8.7 mg/dL 8.5-10.1 [facility] Serum or plasma creatinine [...] Urea nitrogen [Mass/Vol] 20 mg/dL 7-18 [facility] Squamous epithelial cells de tection in urine sediment by light microscopyOrdered By: Carlos Cavazos on 11-24-2022 Epithelial cells.squamous LM Ql (Urine sed) 0 SEEN /hpf 0-5 [facility] Thin prep Papanicolaou smear with manual screeningOrdered By: Carlos Cavazos on 11-24-2022 Thin prep Papanicolaou smear with manual screening 10 U/L 15-37 [facility] Thin prep Papanicolaou smear with manual screening 5 5-15 [facility] Urine blood detectionOrdered By: Carlos Cavazos on 11-24-2022 RBC Ql (U) Negative Negative [facility] RBC Ql (U) 0 SEEN /hpf 0-5 [facility] Urine clarityOrdered By: Ted Cavazos on 11-24-2022 Clarity (U) Clear Clear [facility] Urine color determinationOrd ered By: Carlos Cavazos on 11-24-2022 Color (U) Yellow Yellow [facility] Urine glucose detectionOrder ed By: Carlos Cavazos on 11-24-2022 Glucose Ql (U) Normal mg/dl Normal [facility] Urine leukocyte esterase det ection by dipstickOrdered By: Carlos Cavazos on 11-24-2022 Leukocyte esterase Test strip Ql (U) Negative Negative [facility] Urine pHOrdered By: Carlos flores on 11-24-2022 pH (U) 7.0 [pH] 5.0 - 8.0 [facility] Urine sediment bacteria coun t by microscopy (number/high power field)Ordered By: Carlos Cavazos on 11-24-2022 Bacteria LM.HPF (Urine sed) [#/Area] 0 /[HPF] None Seen [facility] Urine specific gravity measu rementOrdered By: Carlos Cavazos on 11-24-2022 Specific gravity (U) [Rel density] 1.010 1.002-1.030 [facility] Urobilinogen Auto test strip Ql (U)Ordered By: Carlos Cavazos on 11-24-2022 Urobilinogen Ql (U) Normal mg/dl Normal [facility] - CoagulationOrde red By: Carlos Cavazos on 11-23-2022 INR Coag (Bld) [Relative time] 2.2 {INR} [facility] Comment on above: Critical Value > 4.0 Whole blood prothrombin time Ordered By: Carlos Cavazos on 11-23-2022 PT Coag (Bld) [Time] 24.5 s 11.7-14.[address] [facility] Basophil percentageOrdered B y: Carlos Cavazos on 11-22-2022 Chloride [Moles/Vol] 105 mmol/L 98-[address] [facility] Glucose [Mass/Vol] 91 mg/dL 74-106 [facility] Potassium [Moles/Vol] 4.1 mmol/L 3.5-5.1 [facility] Sodium [Moles/Vol] 138 mmol/L 136-145 [facility] WBC (Bld) [#/Vol] 12.0 10*3/uL 4.4-11.0 [facility] Blood erythrocytes count (nu mber/volume)Ordered By: Carlos Cavazos on 11-22-2022 RBC (Bld) [#/Vol] 4.65 10*6/uL 4.6-6.2 [facility] Blood hemoglobin measurement (mass/volume)Ordered By: Carlos Cavazos on 11-22-2022 Hemoglobin (Bld) [Mass/Vol] 12.4 g/dL 13.0-16.5 [facility] Blood platelet mean volumeOr dered By: Carlos Cavaozs on 11-22-2022 Platelet mean volume (Bld) [Entitic vol] 10.3 fL 6.2-12.0 [facility] Determination of erythrocyte mean corpuscular volume (MCV)Ordered By: Carlos Cavazos on 11-22-2022 MCV (RBC) [Entitic vol] 86.0 fL 80-94 [facility] Hematocrit Auto (Bld) [Volum e fraction]Ordered By: Carlos Cavazos on 11-22-2022 Hematocrit (Bld) [Volume fraction] 40.0 % 40-54 [facility] - Chemistry and C hemistry - challengeOrdered By: Carlos Cavazos on 11-22-2022 CO2 [Moles/Vol] 25.0 mmol/L 21.0-32.0 [facility] Urea nitrogen/Creatinine [Mass ratio] 23.6 mg/mg 10-20 [facility] - Hematology and Cell countsOrdered By: Carlos Cavazos on 11-22-2022 Erythrocyte distribution width (RBC) [Entitic vol] 50.0 fL 35.1-43.9 [facility] Erythrocyte distribution width (RBC) [Ratio] 15.9 % 11.6-14.6 [facility] MCH (RBC) [Entitic mass] 26.7 pg 27.0-32.0 [facility] MCHC Auto (RBC) [Mass/Vol]Or dered By: Carlos Cavazos on 11-22-2022 MCHC (RBC) [Mass/Vol] 31.0 g/dL 32-36 [facility] No Panel InformationOrdered By: Carlos Cavazos on 11-22-2022 Estimated GFR (MDRD) Amer 115 mL/min >60 [facility] Comment on above: GFR Calc Estimated GFR (MDRD) Non-Af Amer 95 mL/min >60 [facility] Comment on above: Non- GFR Calc Platelets bldOrdered By: Pet er Kenny on 11-22-2022 Platelets (Bld) [#/Vol] 320 10*3/uL 150-450 [facility] Serum or plasma calcium oral urement (mass/volume)Ordered By: Carlos Cavazos on 11-22-2022 Calcium [Mass/Vol] 8.7 mg/dL 8.5-10.1 [facility] Serum or plasma creatinine [...] Urea nitrogen [Mass/Vol] 20 mg/dL 7-18 [facility] Thin prep Papanicolaou smear with manual screeningOrdered By: Carlos Cavazos on 11-22-2022 Thin prep Papanicolaou smear with manual screening 8 5-15 [facility] - CoagulationOrde red By: Carlos Cavazos on 11-09-2022 INR Coag (Bld) [Relative time] 2.1 {INR} [facility] Comment on above: Critical Value > 4.0 Whole blood prothrombin time Ordered By: Carlos Cavazos on 11-09-2022 PT Coag (Bld) [Time] 22.6 s 11.7-14.[address] [facility] - CoagulationOrde red By: Carlos Cavazos on 10-26-2022 INR Coag (Bld) [Relative time] 2.6 {INR} [facility] Comment on above: Critical Value > 4.0 Whole blood prothrombin time Ordered By: Carlos Cavazos on 10-26-2022 PT Coag (Bld) [Time] 28.5 s 11.7-14.[address] [facility] - CoagulationOrde red By: Carlos Cavazos on 10-12-2022 INR Coag (Bld) [Relative time] 2.4 {INR} [facility] Comment on above: Critical Value > 4.0 Whole blood prothrombin time Ordered By: Carlos Cavazos on 10-12-2022 PT Coag (Bld) [Time] 26.4 s 11.7-14.[address] [facility] - CoagulationOrde red By: Carlos Cavazos on 10-05-2022 INR Coag (Bld) [Relative time] 2.6 {INR} [facility] Comment on above: Critical Value > 4.0 Whole blood prothrombin time Ordered By: Carlos Cavazos on 10-05-2022 PT Coag (Bld) [Time] 28.0 s 11.7-14.[address] [facility] - CoagulationOrde red By: Carlos Cavazos on 09-28-2022 INR Coag (Bld) [Relative time] 2.7 {INR} [facility] Comment on above: Critical Value > 4.0 Whole blood prothrombin time Ordered By: Carlos Cavazos on 09-28-2022 PT Coag (Bld) [Time] 28.9 s 11.7-14.[address] [facility] - CoagulationOrde red By: Carlos Cavazos on 09-14-2022 INR Coag (Bld) [Relative time] 2.5 {INR} [facility] Comment on above: Critical Value > 4.0 Whole blood prothrombin time Ordered By: Carlos Cavazos on 09-14-2022 PT Coag (Bld) [Time] 27.4 s 11.7-14.[address] [facility] - CoagulationOrde red By: Carlos Cavazos on 08-31-2022 INR Coag (Bld) [Relative time] 2.3 {INR} [facility] Comment on above: Critical Value > 4.0 Whole blood prothrombin time Ordered By: Carlos Cavazos on 08-31-2022 PT Coag (Bld) [Time] 25.4 s 11.7-14.[address] [facility] Basophil percentageOrdered B y: Carlos Cavazos on 08-23-2022 Chloride [Moles/Vol] 108 mmol/L 98-[address] [facility] Glucose [Mass/Vol] 86 mg/dL 74-106 [facility] Potassium [Moles/Vol] 4.3 mmol/L 3.5-5.1 [facility] Sodium [Moles/Vol] 136 mmol/L 136-145 [facility] WBC (Bld) [#/Vol] 10.0 10*3/uL 4.4-11.0 [facility] Blood erythrocytes count (nu mber/volume)Ordered By: Carlos Cavazos on 08-23-2022 RBC (Bld) [#/Vol] 4.77 10*6/uL 4.6-6.2 [facility] Blood hemoglobin measurement (mass/volume)Ordered By: Carlos Cavazos on 08-23-2022 Hemoglobin (Bld) [Mass/Vol] 12.5 g/dL 13.0-16.5 [facility] Blood platelet mean volumeOr dered By: Carlos Cavazos on 08-23-2022 Platelet mean volume (Bld) [Entitic vol] 11.0 fL 6.2-12.0 [facility] Determination of erythrocyte mean corpuscular volume (MCV)Ordered By: Carlos Cavazos on 08-23-2022 MCV (RBC) [Entitic vol] 84.3 fL 80-94 [facility] Hematocrit Auto (Bld) [Volum e fraction]Ordered By: Carlos Cavazos on 08-23-2022 Hematocrit (Bld) [Volume fraction] 40.2 % 40-54 [facility] - Chemistry and C hemistry - challengeOrdered By: Carlos Cavazos on 08-23-2022 CO2 [Moles/Vol] 24.0 mmol/L 21.0-32.0 [facility] Urea nitrogen/Creatinine [Mass ratio] 22.8 mg/mg 10-20 [facility] - Hematology and Cell countsOrdered By: Carlos Cavazos on 08-23-2022 Erythrocyte distribution width (RBC) [Entitic vol] 49.3 fL 35.1-43.9 [facility] Erythrocyte distribution width (RBC) [Ratio] 16.0 % 11.6-14.6 [facility] MCH (RBC) [Entitic mass] 26.2 pg 27.0-32.0 [facility] MCHC Auto (RBC) [Mass/Vol]Or dered By: Carlos Cavazos on 08-23-2022 MCHC (RBC) [Mass/Vol] 31.1 g/dL 32-36 [facility] No Panel InformationOrdered By: Carlos Cavazos on 08-23-2022 Estimated GFR (MDRD) Amer 134 mL/min >60 [facility] Comment on above: GFR Calc Estimated GFR (MDRD) Non-Af Amer 110 mL/min >60 [facility] Comment on above: Non- GFR Calc Platelets bldOrdered By: Ted Cavazos on 08-23-2022 Platelets (Bld) [#/Vol] 268 10*3/uL 150-450 [facility] Serum or plasma calcium oral urement (mass/volume)Ordered By: Carlos Cavazos on 08-23-2022 Calcium [Mass/Vol] 9.1 mg/dL 8.5-10.1 [facility] Serum or plasma creatinine [...] Urea nitrogen [Mass/Vol] 17 mg/dL 7-18 [facility] Thin prep Papanicolaou smear with manual screeningOrdered By: Carlos Cavazos on 08-23-2022 Thin prep Papanicolaou smear with manual screening 4 5-15 [facility] - CoagulationOrde red By: Carlos Cavazos on 08-17-2022 INR Coag (Bld) [Relative time] 2.8 {INR} [facility] Comment on above: Critical Value > 4.0 Whole blood prothrombin time Ordered By: Carlos Cavazos on 08-17-2022 PT Coag (Bld) [Time] 29.6 s 11.7-14.[address] [facility] - CoagulationOrde red By: Carlos Cavazos on 08-14-2022 INR Coag (Bld) [Relative time] 3.9 {INR} [facility] Comment on above: Critical Value > 4.0 Whole blood prothrombin time Ordered By: Carlos Cavazos on 08-14-2022 PT Coag (Bld) [Time] 40.6 s 11.7-14.[address] [facility] - CoagulationOrde red By: Carlos Cavazos on 07-31-2022 INR Coag (Bld) [Relative time] 2.5 {INR} [facility] Comment on above: Critical Value > 4.0 Whole blood prothrombin time Ordered By: Carlos Cavazos on 07-31-2022 PT Coag (Bld) [Time] 26.8 s 11.7-14.[address] [facility] INR in Blood by Coagulation assayOrdered By: Carlos Cavazos on 07-24-2022 INR Coag (Bld) [Relative time] 2.3 {INR} [facility] - CoagulationOrde red By: Carlos Cavazos on 07-24-2022 PT Coag (PPP) [Time] 24.7 s 11.7-14.[address] [facility] - CoagulationOrde red By: Carlos Cavazos on 07-20-2022 INR Coag (Bld) [Relative time] 1.9 {INR} [facility] Comment on above: Critical Value > 4.0 Whole blood prothrombin time Ordered By: Carlos Cavazos on 07-20-2022 PT Coag (Bld) [Time] 20.6 s 11.7-14.[address] [facility] - CoagulationOrde red By: Carlos Cavazos on 07-17-2022 INR Coag (Bld) [Relative time] 1.3 {INR} [facility] Comment on above: Critical Value > 4.0 Whole blood prothrombin time Ordered By: Carlos Cavazos on 07-17-2022 PT Coag (Bld) [Time] 15.9 s 11.7-14.[address] [facility] Basophil percentageOrdered B y: Carlos Cavazos on 07-11-2022 Chloride [Moles/Vol] 105 mmol/L 98-[address] [facility] Glucose [Mass/Vol] 97 mg/dL 74-106 [facility] Potassium [Moles/Vol] 3.9 mmol/L 3.5-5.1 [facility] Sodium [Moles/Vol] 140 mmol/L 136-145 [facility] WBC (Bld) [#/Vol] 9.4 10*3/uL 4.4-11.0 [facility] Blood erythrocytes count (nu mber/volume)Ordered By: Carlos Cavazos on 07-11-2022 RBC (Bld) [#/Vol] 4.66 10*6/uL 4.6-6.2 [facility] Blood hemoglobin measurement (mass/volume)Ordered By: Carlos Cavazos on 07-11-2022 Hemoglobin (Bld) [Mass/Vol] 12.0 g/dL 13.0-16.5 [facility] Blood platelet mean volumeOr dered By: Carlos Cavazos on 07-11-2022 Platelet mean volume (Bld) [Entitic vol] 10.4 fL 6.2-12.0 [facility] Determination of erythrocyte mean corpuscular volume (MCV)Ordered By: Carlos Cavazos on 07-11-2022 MCV (RBC) [Entitic vol] 83.7 fL 80-94 [facility] Hematocrit Auto (Bld) [Volum e fraction]Ordered By: Carlos Cavazos on 07-11-2022 Hematocrit (Bld) [Volume fraction] 39.0 % 40-54 [facility] - Chemistry and C hemistry - challengeOrdered By: Carlos Cavazos on 07-11-2022 CO2 [Moles/Vol] 28.0 mmol/L 21.0-32.0 [facility] Urea nitrogen/Creatinine [Mass ratio] 23.0 mg/mg 10-20 [facility] - Hematology and Cell countsOrdered By: Carlos Cavazos on 07-11-2022 Erythrocyte distribution width (RBC) [Entitic vol] 51.0 fL 35.1-43.9 [facility] Erythrocyte distribution width (RBC) [Ratio] 16.8 % 11.6-14.6 [facility] MCH (RBC) [Entitic mass] 25.8 pg 27.0-32.0 [facility] MCHC Auto (RBC) [Mass/Vol]Or dered By: Carlos Cavazos on 07-11-2022 MCHC (RBC) [Mass/Vol] 30.8 g/dL 32-36 [facility] No Panel InformationOrdered By: Carlos Cavazos on 07-11-2022 Estimated GFR (MDRD) Amer 126 mL/min >60 [facility] Comment on above: GFR Calc Estimated GFR (MDRD) Non-Af Amer 104 mL/min >60 [facility] Comment on above: Non- GFR Calc Platelets bldOrdered By: Ted Cavazos on 07-11-2022 Platelets (Bld) [#/Vol] 291 10*3/uL 150-450 [facility] Serum or plasma calcium oral urement (mass/volume)Ordered By: Carlos Cavazos on 07-11-2022 Calcium [Mass/Vol] 9.2 mg/dL 8.5-10.1 [facility] Serum or plasma creatinine [...] Urea nitrogen [Mass/Vol] 18 mg/dL 7-18 [facility] Thin prep Papanicolaou smear with manual screeningOrdered By: Carlos Cavazos on 07-11-2022 Thin prep Papanicolaou smear with manual screening 7 5-15 [facility] - CoagulationOrde red By: Carlos Cavazos on 07-10-2022 INR Coag (Bld) [Relative time] 1.8 {INR} [facility] Comment on above: Critical Value > 4.0 Whole blood prothrombin time Ordered By: Carlos Cavazos on 07-10-2022 PT Coag (Bld) [Time] 21.0 s 11.7-14.[address] [facility] - CoagulationOrde red By: Carlos Cavazos on 07-03-2022 INR Coag (Bld) [Relative time] 1.9 {INR} [facility] Comment on above: Critical Value > 4.0 Whole blood prothrombin time Ordered By: Carlos Cavazos on 07-03-2022 PT Coag (Bld) [Time] 22.7 s 11.7-14.[address] [facility] INR in Blood by Coagulation assayOrdered By: Carlos Cavazos on 06-27-2022 INR Coag (Bld) [Relative time] 2.9 {INR} [facility] - CoagulationOrde red By: Carlos Cavazos on 06-27-2022 PT Coag (PPP) [Time] 29.9 s 11.7-14.[address] [facility] - CoagulationOrde red By: Carlos Cavazos on 06-13-2022 INR Coag (Bld) [Relative time] 2.1 {INR} [facility] Comment on above: Critical Value > 4.0 Whole blood prothrombin time Ordered By: Carlos Cavazos on 06-13-2022 PT Coag (Bld) [Time] 24.4 s 11.7-14.[address] [facility] - CoagulationOrde red By: Carlos Cavazos on 06-06-2022 INR Coag (Bld) [Relative time] 1.5 {INR} [facility] Comment on above: Critical Value > 4.0 Whole blood prothrombin time Ordered By: Carlos Cavazos on 06-06-2022 PT Coag (Bld) [Time] 18.4 s 11.7-14.[address] [facility] Basophil percentageOrdered B y: Carlos Cavazos on 05-30-2022 Chloride [Moles/Vol] 105 mmol/L 98-[address] [facility] Glucose [Mass/Vol] 95 mg/dL 74-106 [facility] Potassium [Moles/Vol] 3.9 mmol/L 3.5-5.1 [facility] Sodium [Moles/Vol] 140 mmol/L 136-145 [facility] WBC (Bld) [#/Vol] 7.6 10*3/uL 4.4-11.0 [facility] Blood erythrocytes count (nu mber/volume)Ordered By: Carlos Cavazos on 05-30-2022 RBC (Bld) [#/Vol] 4.79 10*6/uL 4.6-6.2 [facility] Blood hemoglobin measurement (mass/volume)Ordered By: Carlos Cavazos on 05-30-2022 Hemoglobin (Bld) [Mass/Vol] 12.1 g/dL 13.0-16.5 [facility] Blood platelet mean volumeOr dered By: Carlos Cavazos on 05-30-2022 Platelet mean volume (Bld) [Entitic vol] 10.4 fL 6.2-12.0 [facility] Determination of erythrocyte mean corpuscular volume (MCV)Ordered By: Carlos Cavazos on 05-30-2022 MCV (RBC) [Entitic vol] 82.5 fL 80-94 [facility] Hematocrit Auto (Bld) [Volum e fraction]Ordered By: Carlos Cavazos on 05-30-2022 Hematocrit (Bld) [Volume fraction] 39.5 % 40-54 [facility] INR in Blood by Coagulation assayOrdered By: Carlos Cavazos on 05-30-2022 INR Coag (Bld) [Relative time] 1.9 {INR} [facility] - Chemistry and C hemistry - challengeOrdered By: Carlos Cavazos on 05-30-2022 CO2 [Moles/Vol] 27.0 mmol/L 21.0-32.0 [facility] Urea nitrogen/Creatinine [Mass ratio] 21.4 mg/mg 10-20 [facility] - CoagulationOrde red By: Carlos Cavazos on 05-30-2022 PT Coag (PPP) [Time] 21.6 s 11.7-14.[address] [facility] - Hematology and Cell countsOrdered By: Carlos Cavazos on 05-30-2022 Erythrocyte distribution width (RBC) [Entitic vol] 48.8 fL 35.1-43.9 [facility] Erythrocyte distribution width (RBC) [Ratio] 16.2 % 11.6-14.6 [facility] MCH (RBC) [Entitic mass] 25.3 pg 27.0-32.0 [facility] Auto (RBC) [Mass/Vol]Or dered By: Carlos Cavazos on 05-30-2022 MCHC (RBC) [Mass/Vol] 30.6 g/dL 32-36 [facility] No Panel InformationOrdered By: Carlos Cavazos on 05-30-2022 Estimated GFR (MDRD) Amer 133 mL/min >60 [facility] Comment on above: GFR Calc Estimated GFR (MDRD) Non-Af Amer 110 mL/min >60 [facility] Comment on above: Non- GFR Calc Platelets bldOrdered By: Ted Cavazos on 05-30-2022 Platelets (Bld) [#/Vol] 308 10*3/uL 150-450 [facility] Serum or plasma calcium oral urement (mass/volume)Ordered By: Carlos Cavazos on 05-30-2022 Calcium [Mass/Vol] 9.1 mg/dL 8.5-10.1 [facility] Serum or plasma creatinine [...] Urea nitrogen [Mass/Vol] 16 mg/dL 7-18 [facility] Thin prep Papanicolaou smear with manual screeningOrdered By: Carlos Cavazos on 05-30-2022 Thin prep Papanicolaou smear with manual screening 8 5-15 [facility] - CoagulationOrde red By: Carlos Cavazos on 05-16-2022 INR Coag (Bld) [Relative time] 2.6 {INR} [facility] Comment on above: Critical Value > 4.0 Whole blood prothrombin time Ordered By: Carlos Cavazos on 05-16-2022 PT Coag (Bld) [Time] 29.9 s 11.7-14.[address] [facility] - CoagulationOrde red By: Carlos Cavazos on 05-02-2022 INR Coag (Bld) [Relative time] 2.0 {INR} [facility] Comment on above: Critical Value > 4.0 Whole blood prothrombin time Ordered By: Carlos Cavazos on 05-02-2022 PT Coag (Bld) [Time] 23.2 s 11.7-14.[address] [facility] - CoagulationOrde red By: Carlos Cavazos on 04-27-2022 INR Coag (Bld) [Relative time] 2.7 {INR} [facility] Comment on above: Critical Value > 4.0 Whole blood prothrombin time Ordered By: Carlos Cavazos on 04-27-2022 PT Coag (Bld) [Time] 31.1 s 11.7-14.[address] [facility] - CoagulationOrde red By: Carlos Cavazos on 04-26-2022 INR Coag (Bld) [Relative time] 2.8 {INR} [facility] Comment on above: Critical Value > 4.0 Whole blood prothrombin time Ordered By: Carlos Cavazos on 04-26-2022 PT Coag (Bld) [Time] 32.6 s 11.7-14.[address] [facility] - CoagulationOrde red By: Carlos Cavazos on 04-11-2022 INR Coag (Bld) [Relative time] 2.9 {INR} [facility] Comment on above: Critical Value > 4.0 Whole blood prothrombin time Ordered By: Carlos Cavazos on 04-11-2022 PT Coag (Bld) [Time] 32.8 s 11.7-14.[address] [facility] - CoagulationOrde red By: Carlos Cavazos on 03-28-2022 INR Coag (Bld) [Relative time] 2.1 {INR} [facility] Comment on above: Critical Value > 4.0 Whole blood prothrombin time Ordered By: Carlos Cavazos on 03-28-2022 PT Coag (Bld) [Time] 24.8 s 11.7-14.[address] [facility] - CoagulationOrde red By: Carlos Cavazos on 03-23-2022 INR Coag (Bld) [Relative time] 1.7 {INR} [facility] Comment on above: Critical Value > 4.0 Whole blood prothrombin time Ordered By: Carlos Cavazos on 03-23-2022 PT Coag (Bld) [Time] 20.9 s 11.7-14.[address] [facility] - CoagulationOrde red By: Carlos Cavazos on 03-16-2022 INR Coag (Bld) [Relative time] 1.7 {INR} [facility] Comment on above: Critical Value > 4.0 Whole blood prothrombin time Ordered By: Carlos Cavazos on 03-16-2022 PT Coag (Bld) [Time] 19.9 s 11.7-14.[address] [facility] - CoagulationOrde red By: Carlos Cavazos on 03-09-2022 INR Coag (Bld) [Relative time] 1.8 {INR} [facility] Comment on above: Critical Value > 4.0 Whole blood prothrombin time Ordered By: Carlos Cavazos on 03-09-2022 PT Coag (Bld) [Time] 21.9 s 11.7-14.[address] [facility] - CoagulationOrde red By: Carlos Cavazos on 03-06-2022 INR Coag (Bld) [Relative time] 1.7 {INR} [facility] Comment on above: Critical Value > 4.0 Whole blood prothrombin time Ordered By: Carlos Cavazos on 03-06-2022 PT Coag (Bld) [Time] 20.0 s 11.7-14.[address] [facility] CBC with Auto Differentialon 03-02-2022 Absolute [...] - 10.7 10*3/uL [facility] Test Performed by [facility], [address] [place] [address] [facility] [address] HEAD WO CONTRASTon 2021 Patient Name: ANDREW SIFUENTES Computed Tomography ACCESSION EXAM DATE/TIME PROCEDURE ORDERING PROVIDER [id number] 03/02/2022 13:[address] Head or Brain w/o 212274 -LANETTE MUNGUIA CPT code 19646 Reason For Exam (CT Head or Brain [...] tubes (parent active on the left for DIRECT ENTRY MIDWIFE shunting and disconnected on the right). 2. No definite evidence of acute infarction (MRI more sensitive), mass lesion, nor hemorrhage. Report Dictated on --- Final --- Dictated: 03/02/2022 1:35 pm Dictating Physician: MD GUTIERREZ WILLIAM Signed Date and Time: 03/02/2022 1:39 pm Signed by: MD GUTIERREZ WILLIAM Transcribed Date and Time: 03/02/2022 1:35 [facility] Anant Gutierrez MD - 03/02/2022 [id number] ACCESSION EXAM DATE/TIME PROCEDURE ORDERING PROVIDER [id number] 03/02/2022 13:[address] Head or Brain w/o 490348 -LANETTE MUNGUIA Contrast CPT code 24744 Reason For Exam (CT Head or Brain [...] tubes (parent active on the left for DIRECT ENTRY MIDWIFE shunting and disconnected on the right). 2. [...] Tomography ACCESSION EXAM DATE/TIME PROCEDURE ORDERING PROVIDER [id number] 03/02/2022 13:[address] Head or Brain w/o [id number] -LANETTE MUNGUIA Contrast CPT code 07559 Reason For Exam (CT Head or Brain [...] tubes (parent active on the left for DIRECT ENTRY MIDWIFE shunting and disconnected on the right). 2. [...] Performed By: #### H EMDF PT, CMP3 ####[id number] [place], [place] ALP [Catalytic activity/Vol] 128 U/L High 38-126 [facility] Comment on above: Performed By: #### H BIMALF PT, CMP3 ####[id number] [place], [place] ALT [Catalytic activity/Vol] 12 U/L Normal 0-49 [facility] Comment on above: Result Comment: The ALT test is performed by an updated assay method. Please note that the reference intervals have been changed and are now sex specific. Performed By: #### H EMDF PT, CMP3 ####[id number] [place], [place] Anion gap [Moles/Vol] 7 mmol/L Normal 3-13 [facility] Comment on above: Performed By: #### H EMDF, PT, CMP3 ####[address] [place], [place] AST [Catalytic activity/Vol] 24 U/L Normal 15-46 [facility] Comment on above: Performed By: #### H BIMALF PT, CMP3 ####[facility] [email or web address] [id number] [employer] [place], [place] Bilirubin [Mass/Vol] 0.4 mg/dL Normal 0.2-1.3 [facility] Comment on above: Performed By: #### H EMDF PT, CMP3 ####[facility] [id number] [email or web address] CO2 [Moles/Vol] 27 mmol/L Normal 22-30 [facility] Comment on above: Performed By: #### H BIMALF PT, CMP3 ####[facility] [email or web address] [id number] [email or web address] Glucose [Mass/Vol] 109 mg/dL High 70-100 [facility] Comment on above: Performed By: #### H BIMALF PT, CMP3 ####[facility] [email or web address] [id number] [email or web address] Protein [Mass/Vol] 8.1 g/dL Normal 6.3-8.2 [facility] Comment on above: Performed By: #### H TIERA PT, CMP3 ####[facility] [email or web address] [id number] [employer] [place], [place] Urea nitrogen [Mass/Vol] 22 mg/dL High 7-17 [facility] Comment on above: Performed By: #### H BIMALF PT, CMP3 ####[facility] [email or web address] [id number] [employer] [place], [place] Creatinine [Mass/Vol] 0.63 mg/dL Normal 0.52-1.25 [facility] Comment on above: Performed By: #### H EMDF PT, CMP3 ####[facility] [email or web address] [id number] [employer] [place], [place] eGFR OTHER > 90.0 Normal >60 [...] By: #### H CHRISTEL MOTT CMP3 ####[address] GFR/1.73 sq M.predicted among blacks MDRD (S/P/Bld) [Vol rate/Area] mL/min/{1.73_m2} Normal >60 [facility] Comment on above: Performed By: #### H CHRISTEL MOTT CMP3 ####[address] Albumin [Mass/Vol] 4.1 g/dL Normal 3.5-5.0 [facility] Comment on above: Performed By: #### H CHRISTEL MOTT CMP3 ####[address] Chloride [Moles/Vol] 106 mmol/L Normal 98-107 [facility] Comment on above: Performed By: #### H CHRISTEL MOTT CMP3 ####[address] Potassium [Moles/Vol] 3.7 mmol/L Normal 3.5-5.1 [facility] Comment on above: Performed By: #### H CHRISTEL MOTT CMP3 ####[address] Sodium [Moles/Vol] 140 mmol/L Normal 135-145 [facility] Comment on above: Performed By: #### H CHRISTEL MOTT CMP3 ####[address] [address] [facility] 03-02-2022 Albumin [Mass/Vol] 4.1 g/dL 3.5 [...] P INF mL/min [facility] EGFR IF NonAfrican Croatian mL/min 60 - PINF mL/min [facility] Comment [...] - 17 mg/dL [facility] Test Performed by [facility], [address] [place] [id number] [facility] ED Provider Noteon [address] 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 SURGICAL HISTORY Past Surgical [...] Performed By: #### H TIERA PT, CMP3 ####[facility] [place] [address] Abs Neutrophile Cnt 10.7 10*3/uL High 1.8-7.0 [facility] Comment on above: Performed By: #### H TIERA PT, CMP3 ####[facility] [place] [address] Basophils/100 WBC (Bld) 1.1 % Normal 0.0-2.0 [facility] Comment on above: Performed By: #### H TIERA PT, CMP3 ####[facility] [place] [address] Eosinophils (Bld) [#/Vol] 0.1 10*3/uL Normal 0.0-0.5 [facility] Comment on above: Performed By: #### H BIMALF PT, CMP3 ####[address] [place] [address] Eosinophils/100 WBC (Bld) 0.5 % Low 1.0-6.0 [facility] Comment on above: Performed By: #### H EMDF PT, CMP3 ####[address] [address] Granulocytes/100 WBC (Bld) 73.9 % Normal 40.0-80.0 [facility] Comment on above: Performed By: #### H EMDF PT, CMP3 ####[address] [address] Lymphocytes (Bld) [#/Vol] 3.0 10*3/uL Normal 1.0-4.3 [facility] Comment on above: Performed By: #### H EMDHeydi PT, CMP3 ####[address] [address] Lymphocytes/100 WBC (Bld) 20.6 % Normal 20.0-40.0 [facility] Comment on above: Performed By: #### H EMDHeydi PT, CMP3 ####[address] [address] Monocytes (Bld) [#/Vol] 0.6 10*3/uL Normal 0.0-0.8 [facility] Comment on above: Performed By: #### H EMDF PT, CMP3 ####[address] [address] Monocytes/100 WBC (Bld) 3.9 % Normal 2.0-10.0 [facility] Comment on above: Performed By: #### H EMDHeydi PT, CMP3 ####[address] [address] Platelet mean volume (Bld) [Entitic vol] 8.5 fL Normal 7.4-12.4 [facility] Comment on above: Result Comment: MPV is a calculated measurement using platelet volume ratio. Performed By: #### H EMDF PT, CMP3 ####[address] [place], [place] Platelets (Bld) [#/Vol] 411 10*3/uL Normal 140-440 [facility] Comment on above: Performed By: #### H EMDF, PT, CMP3 ####[address] Erythrocyte distribution width (RBC) [Ratio] 17.0 % High 11.5-14.5 [facility] Comment on above: Performed By: #### H EMDF, PT, CMP3 ####[address] Hematocrit (Bld) [Volume fraction] 37.4 % Low 40.0-52.0 [facility] Comment on above: Performed By: #### H EMDF, PT, CMP3 ####[address] Hemoglobin (Bld) [Mass/Vol] 12.1 g/dL Low 13.0-18.0 [facility] Comment on above: Performed By: #### H EMDF, PT, CMP3 ####[address] MCH (RBC) [Entitic mass] 26.2 pg Normal 26.0-34.0 [facility] Comment on above: Performed By: #### H EMDF, PT, CMP3 ####[address] MCHC 32.3 % Normal 32.0-36.0 [facility] Comment on above: Performed By: #### H EMDF, PT, CMP3 ####[address] MCV (RBC) [Entitic vol] 81.1 fL Normal 80.0-98.0 [facility] Comment on above: Performed By: #### H EMDF, PT, CMP3 ####[address] RBC (Bld) [#/Vol] 4.61 10*6/uL Normal 4.40-5.90 [facility] Comment on above: Performed By: #### H BIMALF PT, CMP3 ####[address] WBC (Bld) [#/Vol] 14.5 10*3/uL High 3.6-10.7 [facility] Comment on above: Performed By: #### H EMDF PT, CMP3 ####[address] Prothrombin Timeon INR 1.9 High 0.9-1.1 [facility] [...] Performed By: #### H TIERA PT, CMP3 ####[address] PT Coag (PPP) [Time] 18.9 s High 9.0-12.0 [facility] Comment on above: Result Comment: . Performed By: #### H BIMALF PT, CMP3 ####[address] Protime-INRon 03-02-2022 INR Coag (Bld) [Relative time] 1.9 {INR} High [facility] Comment on above: Recommended Anticoag [...] Interpretation and review of laboratory results Abnormal [facility] PT Coag (PPP) [Time] 18.9 s High 9.0 - 12.0 s [facility] Comment on above: . Test Performed by [facility], [address] [place] [id number] [facility] Laboratory - CoagulationOrde red By: Carlos Cavazos on 02-20-2022 INR Coag (Bld) [Relative time] 2.6 {INR} [facility] Comment on above: Critical Value > 4.0 Whole blood prothrombin time Ordered By: Carlos Cavazos on 02-20-2022 PT Coag (Bld) [Time] 30.1 s 11.7-14.[address] [facility] - CoagulationOrde red By: Carlos Cavazos on 02-13-2022 INR Coag (Bld) [Relative time] 2.3 {INR} [facility] Comment on above: Critical Value > 4.0 Whole blood prothrombin time Ordered By: Carlos Cavazos on 02-13-2022 PT Coag (Bld) [Time] 26.7 s 11.7-14.[address] [facility] - CoagulationOrde red By: Carlos Cavazos on 02-06-2022 INR Coag (Bld) [Relative time] 2.3 {INR} [facility] Comment on above: Critical Value > 4.0 Whole blood prothrombin time Ordered By: Carlos Cavazos on 02-06-2022 PT Coag (Bld) [Time] 26.6 s 11.7-14.[address] [facility] Laboratory - Coagulationon 0 01-30-2022 INR Coag (Bld) [Relative time] 1.7 {INR} [facility] Work Phone: Comment on above: Critical Value > 4.0 Whole blood prothrombin time on 01-30-2022 PT Coag (Bld) [Time] 20.1 s 11.7-14.[address] [facility] Work Phone: Laboratory - Coagulationon 0 01-26-2022 INR Coag (Bld) [Relative time] 1.8 {INR} [facility] Work Phone: Comment on above: Critical Value > 4.0 Whole blood prothrombin time on 01-26-2022 PT Coag (Bld) [Time] 21.8 s 11.7-14.[address] [facility] Work Phone: Laboratory - Coagulationon 0 01-19-2022 INR Coag (Bld) [Relative time] 2.2 {INR} [facility] Work Phone: Comment on above: Critical Value > 4.0 Whole blood prothrombin time on 01-19-2022 PT Coag (Bld) [Time] 25.7 s 11.7-14.[address] [facility] Work Phone: INR in Blood by Coagulation assayon 01-10-2022 INR Coag (Bld) [Relative time] 1.8 {INR} [facility] Work Phone: Laboratory - Coagulationon 0 01-10-2022 PT Coag (PPP) [Time] 20.9 s 11.7-14.[address] [facility] Work Phone: Basophil percentageon 2021 Chloride [Moles/Vol] 107 mmol/L 98-[address] [facility] Work Phone: Glucose [Mass/Vol] 82 mg/dL 74-106 [facility] Work Phone: Potassium [Moles/Vol] 3.4 mmol/L 3.5-5.1 [facility] Work Phone: Sodium [Moles/Vol] 143 mmol/L 136-145 [facility] Work Phone: WBC (Bld) [#/Vol] 10.4 10*3/uL 4.4-11.0 [facility] Work Phone: Blood erythrocytes count (nu mber/volume)on 01-05-2022 RBC (Bld) [#/Vol] 4.27 10*6/uL 4.6-6.2 [facility] Work Phone: Blood hemoglobin measurement (mass/volume)on 01-05-2022 Hemoglobin (Bld) [Mass/Vol] 11.2 g/dL 13.0-16.5 [facility] Work Phone: Blood platelet mean volumeon 01-05-2022 Platelet mean volume (Bld) [Entitic vol] 10.3 fL 6.2-12.0 [facility] Work Phone: Determination of erythrocyte mean corpuscular volume (MCV)on 01-05-2022 MCV (RBC) [Entitic vol] 84.8 fL 80-94 [facility] Work Phone: Hematocrit Auto (Bld) [Volum e fraction]on 01-05-2022 Hematocrit (Bld) [Volume fraction] 36.2 % 40-54 [facility] Work Phone: Laboratory - Chemistry and C hemistry - challengeon 01-05-2022 CO2 [Moles/Vol] 28.0 mmol/L 21.0-32.0 [facility] Work Phone: Urea nitrogen/Creatinine [Mass ratio] 20.0 mg/mg 10-20 [facility] Work Phone: Laboratory - Hematology and Cell countson 01-05-2022 Erythrocyte distribution width (RBC) [Entitic vol] 51.8 fL 35.1-43.9 [facility] Work Phone: Erythrocyte distribution width (RBC) [Ratio] 16.8 % 11.6-14.6 [facility] Work Phone: MCH (RBC) [Entitic mass] 26.2 pg 27.0-32.0 [facility] Work Phone: MCHC Auto (RBC) [Mass/Vol]on 01-05-2022 MCHC (RBC) [Mass/Vol] 30.9 g/dL 32-36 [facility] Work Phone: No Panel Informationon 01-05 Estimated GFR (MDRD) Amer 133 mL/min >60 [facility] Work Phone: Comment on above: GFR Calc Estimated GFR (MDRD) Non-Af Amer 110 mL/min >60 [facility] Work Phone: Comment on above: Non- GFR Calc Platelets bldon 01-05-2022 Platelets (Bld) [#/Vol] 373 10*3/uL 150-450 [facility] Work Phone: Serum or plasma calcium oral urement (mass/volume)on 01-05-2022 Calcium [Mass/Vol] 8.8 mg/dL 8.5-10.1 [facility] Work Phone: Serum [...] Urea nitrogen [Mass/Vol] 15 mg/dL 7-18 [facility] Work Phone: Thin prep Papanicolaou smear with manual screeningon 01-05-2022 Thin prep Papanicolaou smear with manual screening 8 5-15 [facility] Work Phone: Laboratory - Coagulationon 0 12-30-2021 INR Coag (Bld) [Relative time] 2.0 {INR} [facility] Work Phone: Comment on above: Critical Value > 4.0 Whole blood prothrombin time on 12-30-2021 PT Coag (Bld) [Time] 23.7 s 11.7-14.[address] [facility] Work Phone: Basophil percentageon 2021 Chloride [Moles/Vol] 106 mmol/L 98-[address] [facility] Work Phone: Glucose [Mass/Vol] 91 mg/dL 74-106 [facility] Work Phone: Potassium [Moles/Vol] 3.4 mmol/L 3.5-5.[address] [facility] Work Phone: Sodium [Moles/Vol] 141 mmol/L 136-145 [facility] Work Phone: WBC (Bld) [#/Vol] 10.2 10*3/uL 4.4-11.0 [facility] Work Phone: Blood erythrocytes count (nu mber/volume)on 12-28-2021 RBC (Bld) [#/Vol] 4.22 10*6/uL 4.6-6.2 [facility] Work Phone: Blood hemoglobin measurement (mass/volume)on 12-28-2021 Hemoglobin (Bld) [Mass/Vol] 11.2 g/dL 13.0-16.5 [facility] Work Phone: Blood platelet mean volumeon 12-28-2021 Platelet mean volume (Bld) [Entitic vol] 10.1 fL 6.2-12.0 [facility] Work Phone: Determination of erythrocyte mean corpuscular volume (MCV)on 12-28-2021 MCV (RBC) [Entitic vol] 82.7 fL 80-94 [facility] Work Phone: Hematocrit Auto (Bld) [Volum e fraction]on 12-28-2021 Hematocrit (Bld) [Volume fraction] 34.9 % 40-54 [facility] Work Phone: Laboratory - Chemistry and C hemistry - challengeon 12-28-2021 CO2 [Moles/Vol] 30.0 mmol/L 21.0-32.0 [facility] Work Phone: Urea nitrogen/Creatinine [Mass ratio] 33.7 mg/mg 10-20 [facility] Work Phone: Laboratory - Hematology and Cell countson 12-28-2021 Erythrocyte distribution width (RBC) [Entitic vol] 49.1 fL 35.1-43.9 [facility] Work Phone: Erythrocyte distribution width (RBC) [Ratio] 16.5 % 11.6-14.6 [facility] Work Phone: MCH (RBC) [Entitic mass] 26.5 pg 27.0-32.0 [facility] Work Phone: MCHC Auto (RBC) [Mass/Vol]on 12-28-2021 MCHC (RBC) [Mass/Vol] 32.1 g/dL 32-36 [facility] Work Phone: No Panel Informationon 12-28 Estimated GFR (MDRD) Amer 174 mL/min >60 [facility] Work Phone: Comment on above: GFR Calc Estimated GFR (MDRD) Non-Af Amer 143 mL/min >60 [facility] Work Phone: Comment on above: Non- GFR Calc Platelets bldon 12-28-2021 Platelets (Bld) [#/Vol] 339 10*3/uL 150-450 [facility] Work Phone: Serum or plasma calcium oral urement (mass/volume)on 12-28-2021 Calcium [Mass/Vol] 8.6 mg/dL 8.5-10.1 [facility] Work Phone: Serum [...] Urea nitrogen [Mass/Vol] 20 mg/dL 7-18 [facility] Work Phone: Thin prep Papanicolaou smear with manual screeningon 12-28-2021 Thin prep Papanicolaou smear with manual screening 5 5-15 [facility] Work Phone: CULTURE BLOODon 12-27-2021 Microscopic examination of blood, culture CULTURE BLOOD --> Status: F No growth at 5 days. Normal [facility] Comment on above: Performed By: #### C /BLD #### [facility] [address] [place] [address] Laboratory - Coagulationon 0 12-26-2021 INR Coag (Bld) [Relative time] 1.7 {INR} [facility] Work Phone: Comment on above: Critical Value > 4.0 Whole blood prothrombin time on 12-26-2021 PT Coag (Bld) [Time] 20.8 s 11.7-14.[address] [facility] Work Phone: Basic Metabolic Panelon 12-05 Calcium [Mass/Vol] 8.8 mg/dL Normal 8.4-10.4 [facility] Comment on above: Performed By: #### C RP2, ESR, HEMDF, BMP3 ####[facility] [address] [place] [address] Anion gap [Moles/Vol] 6 mmol/L Normal 3-13 [facility] Comment on above: Performed By: #### C RP2, ESR, HEMDF, BMP3 ####[facility] [place] [address] CO2 [Moles/Vol] 27 mmol/L Normal 22-30 [facility] Comment on above: Performed By: #### C RP2, ESR, HEMDF, BMP3 ####[facility] [employer] [address] [place] [address] Glucose [Mass/Vol] 100 mg/dL Normal 70-100 [facility] Comment on above: Performed By: #### C RP2, ESR, HEMDF, BMP3 ####[facility] [email or web address] [address] Urea nitrogen [Mass/Vol] 18 mg/dL High 7-17 [facility] Comment on above: Performed By: #### C RP2, ESR, HEMDF, BMP3 ####[facility] [address] [place] [address] Creatinine [Mass/Vol] 0.73 mg/dL Normal 0.52-1.25 [facility] Comment on above: Performed By: #### C RP2, ESR, HEMDF, BMP3 ####[facility] [employer] [address] [place], [place] eGFR OTHER > 90.0 Normal >60 [...] ESR, HEMDF, BMP3 ####[facility] [employer] [address] [place], [place] GFR/1.73 sq M.predicted among blacks MDRD (S/P/Bld) [Vol rate/Area] mL/min/{1.73_m2} Normal >60 [facility] Comment on above: Performed By: #### C RP2, ESR, HEMDF, BMP3 ####[facility] [employer] [address] [place], [place] Potassium [Moles/Vol] 3.7 mmol/L Normal 3.5-5.1 [facility] Comment on above: Performed By: #### C RP2, ESR, HEMDF, BMP3 ####[facility] [employer] [address] [place], [place] Chloride [Moles/Vol] 106 mmol/L Normal 98-107 [facility] Comment on above: Performed By: #### C RP2, ESR, HEMDF, BMP3 ####[facility] [employer] [address] [place], [place] Sodium [Moles/Vol] 139 mmol/L Normal 135-145 [facility] [employer] Comment on above: Performed By: #### C RP2, ESR, HEMDF, BMP3 ####[facility] [address] [place] [address] Anion gap [Moles/Vol] 6 mmol/L 3 - 13 mmol/L [facility] Calcium [Mass/Vol] 8.8 mg/dL 8.4 - 10. 4 mg/dL [facility] Chloride [Moles/Vol] 106 mmol/L 98 - 10 7 mmol/L [facility] CO2 [Moles/Vol] 27 mmol/L 22 - 30 mmol/L [facility] Creatinine [Mass/Vol] 0.73 mg/dL 0.52 - 1.25 mg/dL [facility] eGFR mL/min 60 - P INF mL/min [facility] EGFR IF NonAfrican Croatian mL/min 60 - PINF mL/min [facility] Comment on above: KDIGO guidelines [...] Basophil percentage 25-50 SEEN /hpf 0-5 [facility] Work Phone: Chloride [Moles/Vol] 106 mmol/L 98-[address] [facility] Work Phone: Glucose [Mass/Vol] 93 mg/dL 74-106 [facility] Work Phone: Potassium [Moles/Vol] 3.5 mmol/L 3.5-5.1 [facility] Work Phone: Sodium [Moles/Vol] 140 mmol/L 136-145 [facility] Work Phone: WBC (Bld) [#/Vol] 9.6 10*3/uL 4.4-11.0 [facility] Work Phone: Bilirubin Test strip Ql (U)o n 12-22-2021 Bilirubin Ql (U) Negative Negative [facility] Work Phone: Blood erythrocytes count (nu mber/volume)on 12-22-2021 RBC (Bld) [#/Vol] 4.34 10*6/uL 4.6-6.2 [facility] Work Phone: Blood hemoglobin measurement (mass/volume)on 12-22-2021 Hemoglobin (Bld) [Mass/Vol] 11.5 g/dL 13.0-16.5 [facility] Work Phone: Blood platelet mean volumeon 12-22-2021 Platelet mean volume (Bld) [Entitic vol] 10.8 fL 6.2-12.0 [facility] Work Phone: C-Reactive Proteinon 022 CRP [Mass/Vol] 27.2 mg/L High 0.0-9.9 [facility] [employer] Comment on above: Result Comment: . Performed By: #### C RP2, ESR, HEMDF, BMP3 ####[employer] [address] [place] [address] CRP [Mass/Vol] 27.2 mg/L High 0 - 9.9 mg/L [email or web address] Comment on above: . CBC with Auto [...] 10.7 10*3/uL [facility] Test Performed by [address] [place] [address] [facility] COVID-19, Flu A/B, and RSV C omboon 12-22-2021 Influenza A by PCR Not detected [facility] Influenza B by PCR Not detected [facility] A RSV PCR Not Detected. Expected Result: Not Detected _ Method: Real-time, RT-PCR This assay was developed by [employer] and distributed under an Emergency Use Authorization (EUA) granted by the FDA for the qualitative detection of nucleic acids from SARS-CoV-2, Influenza A, Influenza B, and Respiratory Syncytial Virus. Provider and patient fact sheets can be found at https://www.fda.gov/media /506254/download and https://www.fda.gov/media /229300/download. [facility] SARS-CoV-2 (COVID-19) RNA MEGAN+probe Ql (Unsp spec) Not detected [facility] Test Performed by [address] [address] [facility] CR Foot Complete 3+ Views Le fton 12-22-2021 CR Foot Complete 3+ Views Left Patient Name: ANDREW SIFUENTES Diagnostic Radiology ACCESSION EXAM DATE/TIME PROCEDURE ORDERING PROVIDER [id number] 12/22/2021 00:09 EDT CR Foot Complete 3+ SANDY HIDALGO JOHN M Views Left CPT code 34161 Reason For Exam (CR Foot Complete 3+ [...] LM Ql (Urine sed) 1+ /hpf [facility] Work Phone: Determination of erythrocyte mean corpuscular volume (MCV)on 12-22-2021 MCV (RBC) [Entitic vol] 84.3 fL 80-94 [facility] Work Phone: ED Provider Noteon [...] 79.4 kg (175 lb), SpO2 96 %. Hov-ikq-mbnrqxyjr in no acute distress. Alert and oriented [...] are mis-transcribed.) Sharon Olivia MD Acute Care [facility] Sharon Olivia MD 12/22/21 0305 [facility] ED Provider Note [facility] EMERGENCY DEPT EMERGENCY DEPARTMENT ENCOUNTER Pt Name: Andrew Sifuentes Birthdate 1950 Date of evaluation: 12/21/2021 Provider: SANIA Lou CHIEF COMPLAINT Chief Complaint Patient presents with Osteomyelitis Patient from [facility], [facility] did xrays on left lower leg and and have concerns for possible osteomyelitis A&Ox2 to self and place, stated year 2022 [facility] Miss martini HISTORY OF PRESENT [...] Hemorrhoids Hydrocephalus, adult (HCC) Kidney stone Neuropathy DIRECT ENTRY MIDWIFE (ventriculoperitoneal) shunt status SURGICAL HISTORY Past Surgical [...] use: No Sexual activity: Not Currently SCREENINGS [place] Coma Scale Eye Opening: Spontaneous Best Verbal [...] (Bld) [Volume fraction] 36.6 % 40-54 [facility] Work Phone: Hemogram w/ Autodiffon 12-22 Abs Baso Cnt 0.1 10*3/uL Normal 0.0-0.2 [facility] Comment on above: Performed By: #### C RP2, ESR, HEMDF, BMP3 ####[facility] [place] [address] Abs Neutrophile Cnt 5.9 10*3/uL Normal 1.8-7.0 [facility] Comment on above: Performed By: #### C RP2, ESR, HEMDF, BMP3 ####[address] Basophils/100 WBC (Bld) 0.7 % Normal 0.0-2.0 [facility] Comment on above: Performed By: #### C RP2, ESR, HEMDF, BMP3 ####[address] Eosinophils (Bld) [#/Vol] 0.2 10*3/uL Normal 0.0-0.5 [facility] Comment on above: Performed By: #### C RP2, ESR, HEMDF, BMP3 ####[address] Eosinophils/100 WBC (Bld) 2.3 % Normal 1.0-6.0 [facility] Comment on above: Performed By: #### C RP2, ESR, HEMDF, BMP3 ####[address] Erythrocyte distribution width (RBC) [Ratio] 17.5 % High 11.5-14.5 [facility] Comment on above: Performed By: #### C RP2, ESR, HEMDF, BMP3 ####[address] Granulocytes/100 WBC (Bld) 57.8 % Normal 40.0-80.0 [facility] Comment on above: Performed By: #### C RP2, ESR, HEMDF, BMP3 ####[address] Hematocrit (Bld) [Volume fraction] 33.3 % Low 40.0-52.0 [facility] Comment on above: Performed By: #### C RP2, ESR, HEMDF, BMP3 ####[address] Hemoglobin (Bld) [Mass/Vol] 11.0 g/dL Low 13.0-18.0 [facility] Comment on above: Performed By: #### C RP2, ESR, HEMDF, BMP3 ####[address] [place], [place] Lymphocytes (Bld) [#/Vol] 3.3 10*3/uL Normal 1.0-4.3 [facility] Comment on above: Performed By: #### C RP2, ESR, HEMDF, BMP3 ####[address] [place], [place] Lymphocytes/100 WBC (Bld) 33.0 % Normal 20.0-40.0 [facility] Comment on above: Performed By: #### C RP2, ESR, HEMDF, BMP3 ####[address] MCH (RBC) [Entitic mass] 26.5 pg Normal 26.0-34.0 [facility] Comment on above: Performed By: #### C RP2, ESR, HEMDF, BMP3 ####[address] [place], [place] MCHC 33.1 % Normal 32.0-36.0 [facility] Comment on above: Performed By: #### C RP2, ESR, HEMDF, BMP3 ####[address] [place], [place] MCV (RBC) [Entitic vol] 80.2 fL Normal 80.0-98.0 [facility] Comment on above: Performed By: #### C RP2, ESR, HEMDF, BMP3 ####[address] [place], [place] Monocytes (Bld) [#/Vol] 0.6 10*3/uL Normal 0.0-0.8 [facility] Comment on above: Performed By: #### C RP2, ESR, HEMDF, BMP3 ####[address] [place], [place] Monocytes/100 WBC (Bld) 6.2 % Normal 2.0-10.0 [facility] Comment on above: Performed By: #### C RP2, ESR, HEMDF, BMP3 ####[address] . [place], [place] Platelet mean volume (Bld) [Entitic vol] 8.0 fL Normal 7.4-12.4 [facility] Comment on above: Result Comment: MPV is a calculated measurement using platelet volume ratio. Performed By: #### C RP2, ESR, HEMDF, BMP3 ####[address] [place], [place] Platelets (Bld) [#/Vol] 368 10*3/uL Normal 140-440 [facility] Comment on above: Performed By: #### C RP2, ESR, HEMDF, BMP3 ####[address] [place], [place] RBC (Bld) [#/Vol] 4.15 10*6/uL Low 4.40-5.90 [facility] Comment on above: Performed By: #### C RP2, ESR, HEMDF, BMP3 ####[facility] [employer] [address] [place], [place] WBC (Bld) [#/Vol] 10.1 10*3/uL Normal 3.6-10.7 [facility] Comment on above: Performed By: #### C RP2, ESR, HEMDF, BMP3 ####[facility] [employer] [address] [place], [place] Ketones Test strip Ql (U)on 12-22-2021 Ketones Ql (U) Negative Negative [facility] Work Phone: Laboratory - Chemistry and C hemistry - challengeon 12-22-2021 CO2 [Moles/Vol] 27.0 mmol/L 21.0-32.0 [facility] Work Phone: Urea nitrogen/Creatinine [Mass ratio] 22.5 mg/mg 10-20 [facility] Work Phone: Laboratory - Hematology and Cell countson 12-22-2021 Erythrocyte distribution width (RBC) [Entitic vol] 49.1 fL 35.1-43.9 [facility] Work Phone: Erythrocyte distribution width (RBC) [Ratio] 16.1 % 11.6-14.6 [facility] Work Phone: MCH (RBC) [Entitic mass] 26.5 pg 27.0-32.0 [facility] Work Phone: MCHC Auto (RBC) [Mass/Vol]on 12-22-2021 MCHC (RBC) [Mass/Vol] 31.4 g/dL 32-36 [facility] Work Phone: Mucus LM Ql (Urine sed)on Mucus Ql (Urine sed) 0 SEEN /hpf [facility] Work Phone: Nitrite Test strip Ql (U)on 12-22-2021 Nitrite Ql (U) Positive Negative [facility] Work Phone: No Panel Informationon 12-22 Estimated GFR (MDRD) Amer 152 mL/min >60 [facility] Work Phone: Comment on above: GFR Calc Estimated GFR (MDRD) Non-Af Amer 125 mL/min >60 [facility] Work Phone: Comment on above: Non- GFR Calc Interpretation and review of laboratory results Abnormal [facility] Test Performed by [facility], [address] [place] [address] [facility] Platelets bldon 12-22-2021 Platelets (Bld) [#/Vol] 317 10*3/uL 150-450 [facility] Work Phone: Protein Test strip Ql (U)on 12-22-2021 Protein Ql (U) 30 mg/dl Negative [facility] Work Phone: SARS-CoV-2, Flu A/B and RSVo n 12-22-2021 SARS-CoV-2 (COVID-19) RNA MEGAN+probe Ql (Unsp spec) SARS-CoV-2 --> Status: F Not Detected. Flu A PCR --> Status: F Not Detected. Flu B PCR --> Status: F Not Detected. RSV PCR --> Status: F Not Detected. Expected Result: Not Detected _ Method: Real-time, RT-PCR This assay was developed by [employer] and distributed under an Emergency Use Authorization (EUA) granted by the FDA for the qualitative detection of nucleic acids from SARS-CoV-2, Influenza A, Influenza B, and Respiratory Syncytial Virus. Provider and patient fact sheets can be found at https://www.fda.gov/media /809605/download and https://www.fda.gov/media /408568/download. Expected Result: Not Detected _ Method: Real-time, RT-PCR This assay was developed by [employer] and distributed under an Emergency Use Authorization (EUA) granted by the FDA for the qualitative detection of nucleic acids from SARS-CoV-2, Influenza A, Influenza B, and Respiratory Syncytial Virus. Provider and patient fact sheets can be found at https://www.Conjunct.gov/media /214579/download and https://www.Conjunct.gov/media /891924/download. Normal [facility] Comment on above: Performed By: #### C VFLR ####[address] [place] [address], [address] Sed Rateon 12-22-2021 Sed Rate 48 mm/h High 0-10 [facility] Comment on above: Performed By: #### C RP2, ESR, HEMDF, BMP3 ####[address] [place] [address] Sedimentation Rateon 022 Interpretation and review of laboratory results Abnormal [facility] Sed Rate 48 mm/h High 0 - 10 mm/h [facility] Test Performed by [facility], [address] [place] [address] [facility] Serum or plasma calcium oral urement (mass/volume)on 12-22-2021 Calcium [Mass/Vol] 8.6 mg/dL 8.5-10.1 [facility] Work Phone: Serum or plasma creatinine m easurement (mass/volume)on 12-22-2021 Creatinine [Mass/Vol] 0.67 mg/dL 0.70-1.30 [facility] Work Phone: Comment on above: The validity of the calculated GFR & GFRAA in patients over 70 years has not been determined. Clinical correlation is essential. Serum or plasma urea nitroge n measurement (mass/volume)on 12-22-2021 Urea nitrogen [Mass/Vol] 15 mg/dL - [facility] Work Phone: Squamous epithelial cells de tection in urine sediment by light microscopyon 12-22-2021 Epithelial cells.squamous LM Ql (Urine sed) 0-5 SEEN /hpf 0-5 [facility] Work Phone: Thin prep Papanicolaou smear with manual screeningon 12-22-2021 Thin prep Papanicolaou smear with manual screening 7 -15 [facility] Work Phone: Urine blood detectionon 12-05 RBC Ql (U) 150 /ul Negative [facility] Work Phone: RBC Ql (U) 10-25 SEEN /hpf 0-5 [facility] Work Phone: Urine clarityon 12-22-2021 Clarity (U) Sl. Cloudy Clear [facility] Work Phone: Urine color determinationon 12-22-2021 Color (U) Yellow Yellow [facility] Work Phone: Urine glucose detectionon Glucose Ql (U) Normal mg/dl Normal [facility] Work Phone: Urine leukocyte esterase det ection by dipstickon 12-22-2021 Leukocyte esterase Test strip Ql (U) 500 /ul Negative [facility] Work Phone: Urine pHon 12-22-2021 pH (U) 6.0 [pH] 5.0 - 8.0 [facility] Work Phone: Urine sediment bacteria coun t by microscopy (number/high power field)on 12-22-2021 Bacteria LM.HPF (Urine sed) [#/Area] 2 /[HPF] None Seen [facility] Work Phone: Urine specific gravity measu rementon 12-22-2021 Specific gravity (U) [Rel density] 1.020 1.002-1.030 [facility] Work Phone: Urobilinogen Auto test strip Ql (U)on 12-22-2021 Urobilinogen Ql (U) Normal mg/dl Normal [facility] Work Phone: XR FOOT LEFT (MIN 3 VIEWS)on 12-22-2021 Patient Name: ANDREW SIFUENTES Diagnostic Radiology ACCESSION EXAM DATE/TIME PROCEDURE ORDERING PROVIDER [id number] 12/22/2021 00:09 EDT CR Foot Complete 3+ SANDY HIDALGO JOHN M Views Left CPT code 11836 Reason For Exam (CR Foot Complete 3+ [...] JEFFREY Transcribed Date and Time: 12/22/2021 0:21 [facility] Albert Solano MD - 12/22/2021 Patient Name: ANDREW SIFUENTES Diagnostic Radiology ACCESSION EXAM DATE/TIME PROCEDURE ORDERING PROVIDER [id number] 12/22/2021 00:09 EDT CR Foot Complete 3+ SANDY HIDALGO JOHN M Views Left CPT code 84511 Reason For Exam (CR Foot Complete 3+ [...] JEFFREY Transcribed Date and Time: 12/22/2021 0:21 [facility] Work Phone: Radiology Study observation (narrative) [facility] Work Phone: XR FOOT LEFT (MIN 3 VIEWS)Or dered By: Albert Solano on 12-22-2021 [facility] Work Phone: Basophil percentageon 2021 Chloride [Moles/Vol] 103 mmol/L 98-[address] [facility] [address] [facility] Work Phone: Glucose [Mass/Vol] 92 mg/dL 74-106 [facility] Work Phone: Potassium [Moles/Vol] 3.5 mmol/L 3.5-5.1 [facility] Work Phone: Sodium [Moles/Vol] 138 mmol/L 136-145 [facility] Work Phone: WBC (Bld) [#/Vol] 11.2 10*3/uL 4.4-11.0 [facility] Work Phone: Blood erythrocytes count (nu mber/volume)on 12-19-2021 RBC (Bld) [#/Vol] 4.50 10*6/uL 4.6-6.2 [facility] Work Phone: Blood hemoglobin measurement (mass/volume)on 12-19-2021 Hemoglobin (Bld) [Mass/Vol] 12.2 g/dL 13.0-16.5 [facility] Work Phone: Blood platelet mean volumeon 12-19-2021 Platelet mean volume (Bld) [Entitic vol] 11.3 fL 6.2-12.0 [facility] Work Phone: Determination of erythrocyte mean corpuscular volume (MCV)on 12-19-2021 MCV (RBC) [Entitic vol] 85.6 fL 80-94 [facility] Work Phone: Hematocrit Auto (Bld) [Volum e fraction]on 12-19-2021 Hematocrit (Bld) [Volume fraction] 38.5 % 40-54 [facility] Work Phone: Laboratory - Chemistry and C hemistry - challengeon 12-19-2021 CO2 [Moles/Vol] 30.0 mmol/L 21.0-32.0 [facility] Work Phone: Urea nitrogen/Creatinine [Mass ratio] 27.1 mg/mg 10-20 [facility] Work Phone: Laboratory - Hematology and Cell countson 12-19-2021 Erythrocyte distribution width (RBC) [Entitic vol] 50.5 fL 35.1-43.9 [facility] Work Phone: Erythrocyte distribution width (RBC) [Ratio] 16.0 % 11.6-14.6 [facility] Work Phone: MCH (RBC) [Entitic mass] 27.1 pg 27.0-32.0 [facility] Work Phone: MCHC Auto (RBC) [Mass/Vol]on 12-19-2021 MCHC (RBC) [Mass/Vol] 31.7 g/dL 32-36 [facility] Work Phone: No Panel Informationon 12-19 Estimated GFR (MDRD) Amer 153 mL/min >60 [facility] Work Phone: Comment on above: GFR Calc Estimated GFR (MDRD) Non-Af Amer 126 mL/min >60 [facility] Work Phone: Comment on above: Non- GFR Calc Platelets bldon 12-19-2021 Platelets (Bld) [#/Vol] 363 10*3/uL 150-450 [facility] Work Phone: Serum or plasma calcium oral urement (mass/volume)on 12-19-2021 Calcium [Mass/Vol] 9.5 mg/dL 8.5-10.1 [facility] Work Phone: Serum [...] Urea nitrogen [Mass/Vol] 18 mg/dL 7-18 [facility] Work Phone: Thin prep Papanicolaou smear with manual screeningon 12-19-2021 Thin prep Papanicolaou smear with manual screening 5 5-15 [facility] Work Phone: Laboratory - Coagulationon 0 12-12-2021 INR Coag (Bld) [Relative time] 2.0 {INR} [facility] Work Phone: Comment on above: Critical Value > 4.0 Whole blood prothrombin time on 12-12-2021 PT Coag (Bld) [Time] 23.9 s 11.7-14.[address] [facility] Work Phone: ANES POSTPROC EVALon 022 ANES POSTPROC EVAL Normal [facility] Laboratory - Coagulationon 0 12-08-2021 INR Coag (Bld) [Relative time] 1.8 {INR} [facility] Work Phone: Comment on above: Critical Value > 4.0 Whole blood prothrombin time on 12-08-2021 PT Coag (Bld) [Time] 21.0 s 11.7-14.[address] [facility] Work Phone: Absolute lymphocyte counton 12-05-2021 Lymphocytes Auto (Unsp spec) [#/Vol] 2.97 10*3/uL 0.83-4.51 [facility] Work Phone: Basophil percentageon 2021 Basophils/100 WBC (Bld) 0.6 % 0-1 [facility] Work Phone: Chloride [Moles/Vol] 106 mmol/L 98-[address] [facility] Work Phone: Eosinophils/100 WBC (Bld) 2.3 % 0-5 [facility] Work Phone: Glucose [Mass/Vol] 107 mg/dL 74-106 [facility] Work Phone: Comment on above: Fasting Glucose resu lt from 100 to 125 mg/dL suggests IMPAIRED HOMEOSTASIS per A.D.A. criteria. Neutrophils (Bld) [#/Vol] 5.6 10*3/uL 2.0-7.7 [facility] Work Phone: [phone] Neutrophils/100 WBC (Bld) 60.2 % 47-70 [facility] Work Phone: Potassium [Moles/Vol] 3.4 mmol/L 3.5-5.1 [facility] Work Phone: Sodium [Moles/Vol] 139 mmol/L 136-145 [facility] Work Phone: WBC (Bld) [#/Vol] 9.3 10*3/uL 4.4-11.0 [facility] Work Phone: Blood erythrocytes count (nu mber/volume)on 12-05-2021 RBC (Bld) [#/Vol] 4.49 10*6/uL 4.6-6.2 [facility] Work Phone: Blood hemoglobin measurement (mass/volume)on 12-05-2021 Hemoglobin (Bld) [Mass/Vol] 12.1 g/dL 13.0-16.5 [facility] Work Phone: Blood lymphocytes/100 leukoc yteson 12-05-2021 Lymphocytes/100 WBC (Bld) 32.0 % 19-41 [facility] Work Phone: Blood monocytes/100 leukocyt eson 12-05-2021 Monocytes/100 WBC (Bld) 4.7 % 0-10 [facility] Work Phone: Blood platelet mean volumeon 12-05-2021 Platelet mean volume (Bld) [Entitic vol] 10.8 fL 6.2-12.0 [facility] Work Phone: Determination of erythrocyte mean corpuscular volume (MCV)on 12-05-2021 MCV (RBC) [Entitic vol] 84.9 fL 80-94 [facility] Work Phone: Hematocrit Auto (Bld) [Volum e fraction]on 12-05-2021 Hematocrit (Bld) [Volume fraction] 38.1 % 40-54 [facility] Work Phone: INR in Blood by Coagulation assayon 12-05-2021 INR Coag (Bld) [Relative time] 1.8 {INR} [facility] Work Phone: Laboratory - Chemistry and C hemistry - challengeon 12-05-2021 CO2 [Moles/Vol] 29.0 mmol/L 21.0-32.0 [facility] Work Phone: Urea nitrogen/Creatinine [Mass ratio] 25.4 mg/mg 10-20 [facility] Work Phone: Laboratory - Coagulationon 0 12-05-2021 PT Coag (PPP) [Time] 20.5 s 11.7-14.[address] [facility] Work Phone: Laboratory - Hematology and Cell countson 12-05-2021 Erythrocyte distribution width (RBC) [Entitic vol] 48.5 fL 35.1-43.9 [facility] Work Phone: Erythrocyte distribution width (RBC) [Ratio] 15.7 % 11.6-14.6 [facility] Work Phone: Immature granulocytes/100 WBC (Bld) 0.200 % 0.0-0.9 [facility] Work Phone: Comment on above: IG% - Immature Granu locytes (promyelocytes, myelocytes and metamyelocytes) > 1% indicates that a LEFT SHIFT is Present. MCH (RBC) [Entitic mass] 26.9 pg 27.0-32.0 [facility] Work Phone: Nucleated RBC/100 WBC (Bld) [Ratio] 0 % 0-5 [facility] Work Phone: MCHC Auto (RBC) [Mass/Vol]on 12-05-2021 MCHC (RBC) [Mass/Vol] 31.8 g/dL 32-36 [facility] Work Phone: No Panel Informationon 12-05 Estimated GFR (MDRD) Amer 133 mL/min >60 [facility] Work Phone: Comment on above: GFR Calc Estimated GFR (MDRD) Non-Af Amer 110 mL/min >60 [facility] Work Phone: Comment on above: Non- GFR Calc Platelets bldon 12-05-2021 Platelets (Bld) [#/Vol] 363 10*3/uL 150-450 [facility] Work Phone: Serum or plasma calcium oral urement (mass/volume)on 12-05-2021 Calcium [Mass/Vol] 9.4 mg/dL 8.5-10.1 [facility] Work Phone: Serum [...] Urea nitrogen [Mass/Vol] 19 mg/dL 7-18 [facility] Work Phone: Thin prep Papanicolaou smear with manual screeningon 12-05-2021 Thin prep Papanicolaou smear with manual screening 4 5-15 [facility] Work Phone: Basophil percentageon 2021 Basophil percentage 0 SEEN /hpf 0-[address] [facility] Work Phone: Chloride [Moles/Vol] 104 mmol/L 98-[address] [facility] Work Phone: Glucose [Mass/Vol] 90 mg/dL 74-106 [facility] Work Phone: Potassium [Moles/Vol] 3.7 mmol/L 3.5-5.1 [facility] Work Phone: Comment on above: Slight Hemolysis, Re sult may be falsely increased. Sodium [Moles/Vol] 138 mmol/L 136-145 [facility] Work Phone: WBC (Bld) [#/Vol] 10.7 10*3/uL 4.4-11.0 [facility] Work Phone: Bilirubin Test strip Ql (U)o n 12-01-2021 Bilirubin Ql (U) Negative Negative [facility] Work Phone: Blood erythrocytes count (nu mber/volume)on 12-01-2021 RBC (Bld) [#/Vol] 4.33 10*6/uL 4.6-6.2 [facility] Work Phone: Blood hemoglobin measurement (mass/volume)on 12-01-2021 Hemoglobin (Bld) [Mass/Vol] 11.6 g/dL 13.0-16.5 [facility] Work Phone: Blood platelet mean volumeon 12-01-2021 Platelet mean volume (Bld) [Entitic vol] 11.2 fL 6.2-12.0 [facility] Work Phone: Determination of erythrocyte mean corpuscular volume (MCV)on 12-01-2021 MCV (RBC) [Entitic vol] 85.2 fL 80-94 [facility] Work Phone: Hematocrit Auto (Bld) [Volum e fraction]on 12-01-2021 Hematocrit (Bld) [Volume fraction] 36.9 % 40-54 [facility] Work Phone: Ketones Test strip Ql (U)on 12-01-2021 Ketones Ql (U) Negative Negative [facility] Work Phone: Laboratory - Chemistry and C hemistry - challengeon 12-01-2021 CO2 [Moles/Vol] 27.0 mmol/L 21.0-32.0 [facility] Work Phone: Urea nitrogen/Creatinine [Mass ratio] 24.0 mg/mg 10-20 [facility] Work Phone: Laboratory - Coagulationon 0 12-01-2021 INR Coag (Bld) [Relative time] 1.6 {INR} [facility] Work Phone: Comment on above: Critical Value > 4.0 Laboratory - Hematology and Cell countson 12-01-2021 Erythrocyte distribution width (RBC) [Entitic vol] 47.9 fL 35.1-43.9 [facility] Work Phone: Erythrocyte distribution width (RBC) [Ratio] 15.5 % 11.6-14.6 [facility] Work Phone: MCH (RBC) [Entitic mass] 26.8 pg 27.0-32.0 [facility] Work Phone: MCHC Auto (RBC) [Mass/Vol]on 12-01-2021 MCHC (RBC) [Mass/Vol] 31.4 g/dL 32-36 [facility] Work Phone: Mucus LM Ql (Urine sed)on Mucus Ql (Urine sed) 0 SEEN /hpf [facility] Work Phone: Nitrite Test strip Ql (U)on 12-01-2021 Nitrite Ql (U) Negative Negative [facility] Work Phone: No Panel Informationon 12-01 Estimated GFR (MDRD) Amer 133 mL/min >60 [facility] Work Phone: Comment on above: GFR Calc Estimated GFR (MDRD) Non-Af Amer 110 mL/min >60 [facility] Work Phone: Comment on above: Non- GFR Calc Platelets bldon 12-01-2021 Platelets (Bld) [#/Vol] 336 10*3/uL 150-450 [facility] Work Phone: Protein Test strip Ql (U)on 12-01-2021 Protein Ql (U) 30 mg/dl Negative [facility] Work Phone: Serum or plasma calcium oral urement (mass/volume)on 12-01-2021 Calcium [Mass/Vol] 9.4 mg/dL 8.5-10.1 [facility] Work Phone: Serum [...] Urea nitrogen [Mass/Vol] 18 mg/dL 7-18 [facility] Work Phone: Squamous epithelial cells de tection in urine sediment by light microscopyon 12-01-2021 Epithelial cells.squamous LM Ql (Urine sed) 0-5 SEEN /hpf 0-5 [facility] Work Phone: Thin prep Papanicolaou smear with manual screeningon 12-01-2021 Thin prep Papanicolaou smear with manual screening 7 5-15 [facility] Work Phone: Urine blood detectionon 11-05 RBC Ql (U) Negative Negative [facility] Work Phone: RBC Ql (U) 0 SEEN /hpf 0-5 [facility] Work Phone: Urine clarityon 12-01-2021 Clarity (U) Clear Clear [facility] Work Phone: Urine color determinationon 12-01-2021 Color (U) Yellow Yellow [facility] Work Phone: Urine glucose detectionon Glucose Ql (U) 50 mg/dl Normal [facility] Work Phone: Urine leukocyte esterase det ection by dipstickon 12-01-2021 Leukocyte esterase Test strip Ql (U) Negative Negative [facility] Work Phone: Urine pHon 12-01-2021 pH (U) 6.0 [pH] 5.0 - 8.0 [facility] Work Phone: Urine sediment bacteria coun t by microscopy (number/high power field)on 12-01-2021 Bacteria LM.HPF (Urine sed) [#/Area] 0 /[HPF] None Seen [facility] Work Phone: Urine sediment yeast count b y microscopy (number/high powered field)on 12-01-2021 Yeast LM.HPF (Urine sed) [#/Area] 2 /[HPF] None Seen [facility] Work Phone: Urine specific gravity measu rementon 12-01-2021 Specific gravity (U) [Rel density] 1.010 1.002-1.030 [facility] Work Phone: Urobilinogen Auto test strip Ql (U)on 12-01-2021 Urobilinogen Ql (U) Normal mg/dl Normal [facility] Work Phone: Whole blood prothrombin time on 12-01-2021 PT Coag (Bld) [Time] 19.8 s 11.7-14.[address] [facility] Work Phone: Laboratory - Coagulationon 0 11-28-2021 INR Coag (Bld) [Relative time] 1.6 {INR} [facility] Work Phone: Comment on above: Critical Value > 4.0 Whole blood prothrombin time on 11-28-2021 PT Coag (Bld) [Time] 18.8 s 11.7-14.[address] [facility] Work Phone: INR in Blood by Coagulation assayon 11-23-2021 INR Coag (Bld) [Relative time] 2.7 {INR} [facility] Work Phone: Laboratory - Coagulationon 0 11-23-2021 PT Coag (PPP) [Time] 28.0 s 11.7-14.[address] [facility] Work Phone: Laboratory - Coagulationon 0 11-22-2021 INR Coag (Bld) [Relative time] 3.8 {INR} [facility] Work Phone: Comment on above: Critical Value > 4.0 Whole blood prothrombin time on 11-22-2021 PT Coag (Bld) [Time] 42.8 s 11.7-14.[address] [facility] Work Phone: INR in Blood by Coagulation assayon 11-21-2021 INR Coag (Bld) [Relative time] 3.9 {INR} [facility] Work Phone: Laboratory - Coagulationon 0 11-21-2021 PT Coag (PPP) [Time] 37.7 s 11.7-14.[address] [facility] Work Phone: Whole blood prothrombin time on 11-21-2021 PT Coag (Bld) [Time] 45.5 s 11.7-14.[address] [facility] Work Phone: INR in Blood by Coagulation assayon 11-14-2021 INR Coag (Bld) [Relative time] 3.1 {INR} [facility] Work Phone: Laboratory - Coagulationon 0 11-14-2021 PT Coag (PPP) [Time] 31.4 s 11.7-14.[address] [facility] Work Phone: Laboratory - Coagulationon 0 11-08-2021 INR Coag (Bld) [Relative time] 2.5 {INR} [facility] Work Phone: Comment on above: Critical Value > 4.0 Whole blood prothrombin time on 11-08-2021 PT Coag (Bld) [Time] 29.0 s 11.7-14.[address] [facility] Work Phone: Basophil percentageon 2021 Chloride [Moles/Vol] 106 mmol/L 98-[address] [facility] Work Phone: Glucose [Mass/Vol] 100 mg/dL 74-106 [facility] Work Phone: Comment on above: Fasting Glucose resu lt from 100 to 125 mg/dL suggests IMPAIRED HOMEOSTASIS per A.D.A. criteria. Potassium [Moles/Vol] 3.7 mmol/L 3.5-5.1 [facility] Work Phone: Sodium [Moles/Vol] 140 mmol/L 136-145 [facility] Work Phone: WBC (Bld) [#/Vol] 8.8 10*3/uL 4.4-11.0 [facility] Work Phone: Blood erythrocytes count (nu mber/volume)on 11-04-2021 RBC (Bld) [#/Vol] 4.05 10*6/uL 4.6-6.2 [facility] Work Phone: Blood hemoglobin measurement (mass/volume)on 11-04-2021 Hemoglobin (Bld) [Mass/Vol] 11.1 g/dL 13.0-16.5 [facility] Work Phone: Blood platelet mean volumeon 11-04-2021 Platelet mean volume (Bld) [Entitic vol] 10.8 fL 6.2-12.0 [facility] Work Phone: Determination of erythrocyte mean corpuscular volume (MCV)on 11-04-2021 MCV (RBC) [Entitic vol] 86.9 fL 80-94 [facility] Work Phone: Hematocrit Auto (Bld) [Volum e fraction]on 11-04-2021 Hematocrit (Bld) [Volume fraction] 35.2 % 40-54 [facility] Work Phone: INR in Blood by Coagulation assayon 11-04-2021 INR Coag (Bld) [Relative time] 1.8 {INR} [facility] Work Phone: Laboratory - Chemistry and C hemistry - challengeon 11-04-2021 CO2 [Moles/Vol] 26.0 mmol/L 21.0-32.0 [facility] Work Phone: Urea nitrogen/Creatinine [Mass ratio] 18.3 mg/mg 10-20 [facility] Work Phone: Laboratory - Coagulationon 0 11-04-2021 PT Coag (PPP) [Time] 20.4 s 11.7-14.[address] [facility] Work Phone: Laboratory - Hematology and Cell countson 11-04-2021 Erythrocyte distribution width (RBC) [Entitic vol] 48.1 fL 35.1-43.9 [facility] Work Phone: Erythrocyte distribution width (RBC) [Ratio] 15.0 % 11.6-14.6 [facility] Work Phone: MCH (RBC) [Entitic mass] 27.4 pg 27.0-32.0 [facility] Work Phone: MCHC Auto (RBC) [Mass/Vol]on 11-04-2021 MCHC (RBC) [Mass/Vol] 31.5 g/dL 32-36 [facility] Work Phone: No Panel Informationon 11-04 D-Dimer Quantitative (PE/DVT) 0.56 FEU/ug/m 0.27-0.49 [facility] Work Phone: Comment on above: D-Dimer ELEVATED (>0 .49): Additional studies and clinicalassessments are indicated to conclude diagnosis of:Deep Vein Thrombosis (DVT) or Pulmonary Embolism (PE) Estimated GFR (MDRD) Amer 155 mL/min >60 [facility] Work Phone: Comment on above: GFR Calc Estimated GFR (MDRD) Non-Af Amer 128 mL/min >60 [facility] Work Phone: Comment on above: Non- GFR Calc Troponin I High Sensitivity 11 pg/mL 3.0-78.0 [facility] Work Phone: Comment on above: Please Note: New Fadumo t Units and Gender Specific Reference Ranges. For more information see Policy Stat Procedure Spreckels High Sensitivity Troponin (TNIH) and attachments. Platelets bldon 11-04-2021 Platelets (Bld) [#/Vol] 364 10*3/uL 150-450 [facility] Work Phone: Serum or plasma C reactive p rotein measurement (mass/volume)on 11-04-2021 CRP [Mass/Vol] 31.90 mg/L 0.0-3.0 [facility] Work Phone: Comment on above: C-Reactive Protein ( CRP) provides useful information for thediagnosis, therapy and monitoring of inflammatory processesand associated diseases. For the evaluation of Relative Riskfor Cardiovascular Disease, a High Sensitivity CRP (HSCRP)should be ordered. Serum or plasma calcium oral urement (mass/volume)on 11-04-2021 Calcium [Mass/Vol] 9.1 mg/dL 8.5-10.1 oste r [facility] Work Phone: Serum or plasma creatinine m easurement (mass/volume)on 11-04-2021 Creatinine [Mass/Vol] 0.66 mg/dL 0.70-1.30 [facility] Work Phone: Comment on above: The validity of the calculated GFR & GFRAA in patients over 70 years has not been determined. Clinical correlation is essential. Serum or plasma urea nitroge n measurement (mass/volume)on 11-04-2021 Urea nitrogen [Mass/Vol] 12 mg/dL 7-18 [facility] Work Phone: Thin prep Papanicolaou smear with manual screeningon 11-04-2021 Thin prep Papanicolaou smear with manual screening 8 5-15 [facility] Work Phone: Complete Urinalysison 2021 Appearance (U) Clear Normal Clear [facility] [employer] Comment on above: Result Comment: . Performed By: #### C UA2 ####[employer] [id number] [place], [place] Bacteria Moderate Abnormal Negative [facility] [employer] Comment on above: Result Comment: . Performed By: #### C UA2 ####[employer] [id number] [place], [place] Bilirubin,Urine Negative Normal Negative [facility] [employer] Comment on above: Result Comment: . Performed By: #### C UA2 ####[employer] [id number] [place], [place] Cast, Hyaline Negative Normal Negative [facility] [employer] Comment on above: Result Comment: . Performed By: #### C UA2 ####[facility] [place], [place] Color (U) Yellow Normal Lt. Yellow [facility] [employer] Comment on above: Result Comment: . Performed By: #### C UA2 ####[employer] [id number] [place], [place] Glucose Ql (U) Normal Normal Normal (<70) [facility] Comment on above: Result Comment: . Performed By: #### C UA2 ####[employer] [email or web address] [place], [place] Ketone,Urine Negative Normal Negative [facility] [employer] Comment on above: Result Comment: . Performed By: #### C UA2 ####[employer] [id number] [place], [place] Leukocytes,Urine Negative Normal Negative [facility] Comment on above: Result Comment: . Performed By: #### C UA2 ####[place] [id number] [place], [place] Mucous Threads Few Normal Negative [facility] Comment on above: Result Comment: . Performed By: #### C UA2 ####[id number] . [place], [place] Nitrites,Urine Negative Normal Negative [facility] Comment on above: Result Comment: . Performed By: #### C UA2 ####[address] [place], [place] Occult Blood,Urine 0.1 mg/dL Abnormal Negative [facility] Comment on above: Result Comment: . Performed By: #### C UA2 ####[address] pH,Urine 5.5 Normal 5.0-8.0 [facility] Comment on above: Result Comment: . Performed By: #### C UA2 ####[id number] [place], [place] Protein (U) [Mass/Vol] 10 mg/dL Abnormal Negative [facility] Comment on above: Result Comment: . Performed By: #### C UA2 ####[id number] . [place], [place] RBC, Urine 26 - 50 Abnormal 0-2 [facility] Comment on above: Result Comment: . Performed By: #### C UA2 ####[address] Specific [place],Urine 1.023 Normal 1.005 - 1.030 [facility] Comment on above: Result Comment: . Performed By: #### C UA2 ####[address] Squamous Epithelial Negative Normal 3-5 [facility] Comment on above: Result Comment: . Performed By: #### C UA2 ####[address] Urobilinogen,Urine Normal Normal Normal (0-1) [facility] Comment on above: Result Comment: . Performed By: #### C UA2 ####[facility] [place] [address] WBC, Urine 0 - 2 Normal 0-5 [facility] Comment on above: Result Comment: . Performed By: #### C UA2 ####[facility] [place] [address] Urinalysison 11-01-2021 Appearance (U) Clear Clear NA [...] /[HPF] [facility] Comment on above: . Specific [place], Urine 1.023 [facility] Comment on above: . Squam Epithel, UA Negative 3 - 5 /[HPF] [facility] Comment on above: . Urobilinogen, Urine Normal Normal ( 0-1) mg/dL [facility] Comment on above: . WBC, UA 0-2 0 - 5 /[HPF] [facility] Comment on above: . Test Performed by [facility], [address] [place] [address] [facility] Basic Metabolic Panelon 10-06 Anion gap [Moles/Vol] 6 mmol/L Normal 3-13 [facility] Comment on above: Performed By: #### P T/AP, TROPN, BMP3, HEMDF #### [facility] [address] [place], [place] Calcium [Mass/Vol] 9.1 mg/dL Normal 8.4-10.4 [facility] Comment on above: Performed By: #### P T/AP, TROPN, BMP3, HEMDF #### [facility] [address] [place], [place] CO2 [Moles/Vol] 28 mmol/L Normal 22-30 [facility] Comment on above: Performed By: #### P T/AP, TROPN, BMP3, HEMDF #### [facility] [address] [place], [place] Glucose [Mass/Vol] 120 mg/dL High 70-100 [facility] Comment on above: Performed By: #### P T/AP, TROPN, BMP3, HEMDF #### [place] [place], [place] Urea nitrogen [Mass/Vol] 17 mg/dL Normal 7-17 [facility] Comment on above: Performed By: #### P T/AP, TROPN, BMP3, HEMDF #### [facility] [address] [place], [place] Creatinine [Mass/Vol] 0.65 mg/dL Normal 0.52-1.25 [facility] Comment on above: Performed By: #### P T/AP, TROPN, BMP3, HEMDF #### [facility] [address] [place], [place] eGFR OTHER > 90.0 Normal >60 [...] #### P T/AP, TROPN, BMP3, HEMDF #### [place] [address] [place], [place] GFR/1.73 sq M.predicted among blacks MDRD (S/P/Bld) [Vol rate/Area] mL/min/{1.73_m2} Normal >60 [facility] Comment on above: Performed By: #### P T/AP, TROPN, BMP3, HEMDF #### [place] [address] [place], [place] Potassium [Moles/Vol] 3.8 mmol/L Normal 3.5-5.1 [facility] Comment on above: Performed By: #### P T/AP, TROPN, BMP3, HEMDF #### [place] [address] [place], [place] Chloride [Moles/Vol] 101 mmol/L Normal 98-107 [facility] Comment on above: Performed By: #### P T/AP, TROPN, BMP3, HEMDF #### [place] [place], [place] Sodium [Moles/Vol] 134 mmol/L Low 135-145 [facility] Comment on above: Performed By: #### P T/AP, TROPN, BMP3, HEMDF #### [place] [place], [place] Anion gap [Moles/Vol] 6 mmol/L 3 - 13 mmol/L [facility] Calcium [Mass/Vol] 9.1 mg/dL 8.4 - 10. 4 mg/dL [facility] Chloride [Moles/Vol] 101 mmol/L 98 - 10 7 mmol/L [facility] CO2 [Moles/Vol] 28 mmol/L 22 - 30 mmol/L [facility] Creatinine [Mass/Vol] 0.65 mg/dL 0.52 - 1.25 mg/dL [facility] EGFR IF NonAfrican Croatian >90.0 >60 mL/min [facility] Comment on above: KDIGO guidelines [...] [Mass/Vol] 17 mg/dL 7 - 17 mg/dL [facility] Test Performed by [facility], [address] [place] [id number] [place] [address] [facility] CBC with Auto Differentialon 10-31-2021 [...] - 10.7 10*3/uL [facility] Test Performed by [address] [facility] CR Abdomen APon 10-31-2021 CR Abdomen AP Patient Name: ANDREW SIFUENTES Diagnostic Radiology ACCESSION EXAM DATE/TIME PROCEDURE ORDERING PROVIDER [id number] 10/31/2021 20:36 EDT CR Abdomen AP [id number] -MYRON DURAN CPT code 20813 Reason For Exam (CR Abdomen AP) avp shunt, 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 CHEST PORTABLE [...] Portable [id number] Radiology ACCESSION EXAM DATE/TIME PROCEDURE ORDERING PROVIDER [id number] 10/31/2021 20:36 EDT CR Chest Portable [id number] MYRON GALINDO CPT code 50619 Reason For Exam (CR Chest Portable) AMS [...] Tomography ACCESSION EXAM DATE/TIME PROCEDURE ORDERING PROVIDER [id number] 10/31/2021 20:[address] Head or Brain w/o [id number] -MYRON DURAN Contrast CPT code 57591 Reason For Exam (CT Head or Brain w/o Contrast) AMS, previous DIRECT ENTRY MIDWIFE shunt Report Examination: CT Head Clinical Information: AMS, previous DIRECT ENTRY MIDWIFE shunt Comparison: 10/26/2021, MRI 10/27/2021 Findings: Serial [...] J Transcribed Date and Time: 10/31/2021 8:54 [facility] Alan Wong MD - 10/31/2021 Patient Name: [id number] Computed Tomography ACCESSION EXAM DATE/TIME PROCEDURE ORDERING PROVIDER [id number] 10/31/2021 20:[address] Head or Brain w/o [id number] -MYRON DURAN Contrast CPT code 37080 Reason For Exam (CT Head or Brain w/o Contrast) AMS, previous DIRECT ENTRY MIDWIFE shunt Report Examination: CT Head Clinical Information: AMS, previous DIRECT ENTRY MIDWIFE shunt Comparison: 10/26/2021, MRI 10/27/2021 Findings: Serial [...] Contrast Patient Name: [id number] Computed Tomography ACCESSION EXAM DATE/TIME PROCEDURE ORDERING PROVIDER [id number] 10/31/2021 20:[address] Head or Brain w/o [id number] -DURAN, MYRON Contrast CPT code 12675 Reason For Exam (CT Head or Brain w/o Contrast) AMS, previous DIRECT ENTRY MIDWIFE shunt Report Examination: CT Head Clinical Information: AMS, previous DIRECT ENTRY MIDWIFE shunt Comparison: 10/26/2021, MRI 10/27/2021 Findings: Serial [...] ED Provider Note Emergency Department Encounter [facility] EMERGENCY DEPT Patient: Andrew Sifuentes : [...] Solutions Dante Kim MD 10/31/21 2211 Normal [facility] ED Provider Note [facility] EM[facility]GENCY DEPT EMERGENCY DEPARTMENT ENCOUNTER Pt Name: Andrew Sifuentes Birthdate 1950 Date of evaluation: 10/31/2021 Provider: Myron Duran MD CHIEF COMPLAINT Chief Complaint Patient presents with ? Altered Mental Status Pt presents to ED via [facility] for complaint listed. Pt is from [place] [facility]. Pt's LKW was 1000 hours [...] have a history of hydrocephalus with a DIRECT ENTRY MIDWIFE shunt. 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 REVIEW OF [...] (HCC) ? Kidney stone ? Neuropathy ? 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1950 Requested By: MYRON DURAN Order Number: [id number] Reading MD: Dante Kim Measurements Intervals [place] Rate: 91 P: 41 TN: 154 QRS: 50 QRSD: 147 T: 8 QT: 385 QTc: 474 Interpretive Statements Sinus rhythm Right bundle branch block Electronically Signed On 10-31-2021 20:36:25 EDT by Dante Kim [facility] Work Phone: EKG 12 Lead - Chest PainOrde red By: Dante Kim on 10-31-2021 [facility] Work Phone: Hemogram w/ Autodiffon 10-31 Abs Baso Cnt 0.1 10*3/uL Normal 0.0-0.2 [facility] Comment on above: Performed By: #### P T/AP, TROPN, BMP3, HEMDF #### [facility] [employer] [facility] [address] [place] [address] Abs Neutrophile Cnt 6.0 10*3/uL Normal 1.8-7.0 [facility] Comment on above: Performed By: #### P T/AP, TROPN, BMP3, HEMDF #### [place] [address] [place], [place] Basophils/100 WBC (Bld) 1.1 % Normal 0.0-2.0 [facility] Comment on above: Performed By: #### P T/AP, TROPN, BMP3, HEMDF #### [address] [place] Eosinophils (Bld) [#/Vol] 0.2 10*3/uL Normal 0.0-0.5 [facility] Comment on above: Performed By: #### P T/AP, TROPN, BMP3, HEMDF #### [address] Eosinophils/100 WBC (Bld) 2.3 % Normal 1.0-6.0 [facility] Comment on above: Performed By: #### P T/AP, TROPN, BMP3, HEMDF #### [address] Erythrocyte distribution width (RBC) [Ratio] 17.2 % High 11.5-14.5 [facility] Comment on above: Performed By: #### P T/AP, TROPN, BMP3, HEMDF #### [address] Granulocytes/100 WBC (Bld) 61.8 % Normal 40.0-80.0 [facility] Comment on above: Performed By: #### P T/AP, TROPN, BMP3, HEMDF #### [place] [place] Hematocrit (Bld) [Volume fraction] 35.0 % Low 40.0-52.0 [facility] Comment on above: Performed By: #### P T/AP, TROPN, BMP3, HEMDF #### [place] [address] [place] Hemoglobin (Bld) [Mass/Vol] 11.3 g/dL Low 13.0-18.0 [facility] Comment on above: Performed By: #### P T/AP, TROPN, BMP3, HEMDF #### [place] [address] [place] Lymphocytes (Bld) [#/Vol] 2.8 10*3/uL Normal 1.0-4.3 [facility] Comment on above: Performed By: #### P T/AP, TROPN, BMP3, HEMDF #### [place] [place] Lymphocytes/100 WBC (Bld) 29.2 % Normal 20.0-40.0 [facility] Comment on above: Performed By: #### P T/AP, TROPN, BMP3, HEMDF #### [place] [place] MCH (RBC) [Entitic mass] 27.5 pg Normal 26.0-34.0 [facility] Comment on above: Performed By: #### P T/AP, TROPN, BMP3, HEMDF #### [place] [place] MCHC 32.3 % Normal 32.0-36.0 [facility] Comment on above: Performed By: #### P T/AP, TROPN, BMP3, HEMDF #### [address] [place] MCV (RBC) [Entitic vol] 85.0 fL Normal 80.0-98.0 [facility] Comment on above: Performed By: #### P T/AP, TROPN, BMP3, HEMDF #### [address] [place] Monocytes (Bld) [#/Vol] 0.5 10*3/uL Normal 0.0-0.8 [facility] Comment on above: Performed By: #### P T/AP, TROPN, BMP3, HEMDF #### [address] Monocytes/100 WBC (Bld) 5.6 % Normal 2.0-10.0 [facility] Comment on above: Performed By: #### P T/AP, TROPN, BMP3, HEMDF #### [address] [place] Platelet mean volume (Bld) [Entitic vol] 8.6 fL Normal 7.4-12.4 [facility] Comment on above: Result Comment: MPV is a calculated measurement using platelet volume ratio. Performed By: #### P T/AP, TROPN, BMP3, HEMDF #### [facility] [address] [place], [place] Platelets (Bld) [#/Vol] 348 10*3/uL Normal 140-440 [facility] Comment on above: Performed By: #### P T/AP, TROPN, BMP3, HEMDF #### [place] [address] [place], [place] RBC (Bld) [#/Vol] 4.12 10*6/uL Low 4.40-5.90 [facility] Comment on above: Performed By: #### P T/AP, TROPN, BMP3, HEMDF #### [facility] [address] [place], [place] WBC (Bld) [#/Vol] 9.7 10*3/uL Normal 3.6-10.7 [facility] Comment on above: Performed By: #### P T/AP, TROPN, BMP3, HEMDF #### [facility] [address] [place], [place] Laboratory - Coagulationon 0 10-31-2021 INR Coag (Bld) [Relative time] 2.0 {INR} [facility] Work Phone: Comment on above: Critical Value > 4.0 No Panel Informationon 10-31 Radiology Study observation (narrative) [facility] Work Phone: PROTIME/INR & PTTon 11-01-19 22 aPTT Coag (Bld) [Time] 39.2 s High 20.0 - 30.5 s [facility] Comment on above: NOTE: The therapeuti c time for Heparin anticoagulation, based on Xa activity inhibition, is an APTT of 46-80 seconds. INR Coag (Bld) [Relative time] 1.9 {INR} High [facility] Comment on above: Recommended Anticoag [...] Interpretation and review of laboratory results Abnormal [facility] PT Coag (PPP) [Time] 19.8 s High 9.0 - 12.0 s [facility] Comment on above: . Test Performed by [facility], [address] [place] [address] - [facility] Protime AND APTTon 2 aPTT Coag (Bld) [Time] 39.2 s High 20.0-30.5 [facility] Comment on above: Result Comment: NOTE : The therapeutic time for Heparin anticoagulation, based on Xa activity inhibition, is an APTT of 46-80 seconds. Performed By: #### P T/AP, TROPN, BMP3, HEMDF #### [address] [address] INR 1.9 High 0.9-1.1 [facility] [...] BMP3, HEMDF #### [facility] [address] [place] [address] PT Coag (PPP) [Time] 19.8 s High 9.0-12.0 [facility] Comment on above: Result Comment: . Performed By: #### P T/AP, TROPN, BMP3, HEMDF #### [facility] [address] [place] [address] Troponin Ion 10-31-2021 Troponin I.cardiac [Mass/Vol] ng/mL Normal 0.000-0.034 [facility] Comment on above: Result Comment: . Performed By: #### P T/AP, TROPN, BMP3, HEMDF #### [facility] [address] [place] [address] Troponin x1on 10-31-2021 Troponin I.cardiac [Mass/Vol] ng/mL 0.000 - 0.034 ng/mL [facility] Comment on above: . Test Performed by [facility], [address] [place] [address] [facility] Whole blood prothrombin time on 10-31-2021 PT Coag (Bld) [Time] 23.7 s 11.7-14.[address] [facility] Work Phone: XR ABDOMEN (KUB) (SINGLE AP VIEW)on 10-31-2021 Patient Name: ANDREW SIFUENTES Diagnostic Radiology ACCESSION EXAM DATE/TIME PROCEDURE ORDERING PROVIDER [id number] 10/31/2021 20:36 EDT CR Abdomen AP [id number] -MYRON DURAN CPT code 37446 Reason For Exam (CR Abdomen AP) avp shunt, 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 CHEST PORTABLE [...] 10/31/2021 8:49 [facility] Meyers MD - 10/31/2021 Patient Name: ANDREW SIFUENTES Diagnostic Radiology ACCESSION EXAM DATE/TIME PROCEDURE ORDERING PROVIDER [id number] 10/31/2021 20:36 EDT CR Abdomen AP [id number] -DURAN MYRON CPT code 96688 Reason For Exam (CR Abdomen AP) avp shunt, 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 CHEST PORTABLE [...] and Time: 10/31/2021 8:49 [facility] Work Phone: [facility] Work Phone: XR CHEST PORTABLEon 11-01-19 Patient Name: ANDREW SIFUENTES Diagnostic Radiology ACCESSION EXAM DATE/TIME PROCEDURE ORDERING PROVIDER [id number] 10/31/2021 20:36 EDT CR Chest Portable [id number] PERDOMO CPT code 80898 Reason For Exam (CR Chest Portable) AMS [...] WENDELL Transcribed Date and Time: 10/31/2021 8:49 [facility] Huang Reynoso MD - 10/31/2021 Patient Name: ANDREW SIFUENTES Diagnostic Radiology ACCESSION EXAM DATE/TIME PROCEDURE ORDERING PROVIDER [id number] 10/31/2021 20:36 EDT CR Chest Portable [id number] MYRON GALINDO CPT code 39641 Reason For Exam (CR Chest Portable) AMS [...] WENDELL Transcribed Date and Time: 10/31/2021 8:49 [facility] Work Phone: XR CHEST PORTABLEOrdered By: Huang Reynoso on 10-31-2021 [facility] Work Phone: Lupus Anticoagulanton 2021 DRVVT Confirmation Test Not Applicable Negative ratio [facility] Work Phone: dRVVT Screen 38 [facility] Work Phone: Hex Phosph Neut Test Not Applicable Negative NA [facility] Work Phone: Interpretation and review of laboratory results Abnormal [facility] Work Phone: LUPUS INTERPRETATION See Note [facility] Work Phone: Comment on above: Lupus [...] has not already been performed. Performed by [employer], [address], [facility] [place] [address] www.[email or web address], Quiana Castro MD - Lab. Director Platelet Neutralization Not Applicable Negative NA [facility] Work Phone: PTT-D Heparin Neutralized 48 [facility] Work Phone: PTT-LA 55 High [facility] Work Phone: Reptilase Tm 17.6 <=21.9 sec [facility] Work Phone: Thrombin Time 25.3 High [facility] Work Phone: [facility] Work Phone: Lupus Anticoagulant Reflexiv e Panelon 10-29-2021 aPTT Coag (Bld) [Time] 55 s High 32-48 [facility] Comment on above: Performed By: #### C OVAG #### [facility] [address] [place] [address] aPTT Coag (Bld) [Time] 48 s Normal 32-48 [facility] Comment on above: Performed By: #### C OVAG #### [facility] [address] [place] [address] DRVVT 1:1 Mix Not Applicable Normal 33-44 [facility] Work Phone: [phone] Comment on above: Performed By: #### C OVAG #### [facility] [address] [place] [address] dRVVT Confirmation Not Applicable Normal Negative [facility] Comment on above: Performed By: #### C OVAG #### [facility] [address] [place] [address] dRVVT Screen 38 sec Normal 33-44 [facility] Comment on above: Performed By: #### C OVAG #### [facility] [address] [place] [address] Hexagonal Phospholipid Neutral Reflex Not Applicable Normal Negative [facility] Comment on above: Performed By: #### C OVAG #### [facility] [address] [place] [address] Lupus Anticoagulant Interpretation See Note Normal [facility] [...] has not already been performed. Performed by [employer], [address] [place] [id number] www.[email or web address], Quiana Castro MD - Lab. Director Performed By: #### C OVAG #### [facility] [address] [place] [address] Platelet Neutralization (PTT-D, Confirm) Not Applicable Normal Negative [facility] Comment on above: Performed By: #### C OVAG #### [facility] [address] [place] [address] PT Coag (PPP) [Time] 14.7 s Normal 12.0-15.5 [facility] Work Phone: Comment on above: Performed By: #### C OVAG #### [facility] [address] [place] [address] PTT-D 1:1 Mix Not Applicable Normal 32-48 [facility] Work Phone: Comment on above: Performed By: #### C OVAG #### [facility] [address] [place] [address] Reptilase Time 17.6 sec Normal <=21.9 [facility] Comment on above: Performed By: #### C OVAG #### [facility] [address] [place] [address] Thrombin Time 25.3 sec High 14.7-19.5 [facility] Comment on above: Performed By: #### C OVAG #### [facility] [address] [place] [place] [address] POCT COVID-19, Antigenon SARS-CoV-2 Nucleocapsid Antigen Negative Negative NA [facility] Comment on above: A negative result does not rule out the possibility of SARS-CoV-2 infection. NAAT-based methods should be considered for symptomatic patients presenting greater than seven days after onset of symptoms. Method: Lateral flow immunoassay. Fact sheets for healthcare providers and patients can be found at the following sites: https://www.Conjunct.gov/media/143140/download https://www.Conjunct.gov/media/676936/download Test Performed by [facility], [address] [place] [address] [facility] Prothrombin Timeon INR 2.7 High [...] #### [facility] [address] [place] [address] PT Coag (PPP) [Time] 27.4 s High 9.0-12.0 [facility] Comment on above: Result Comment: . Performed By: #### P T #### [facility] [address] [place] [address] Protime-INRon 10-29-2021 INR Coag (Bld) [Relative time] 2.7 {INR} High [facility] Work Phone: Comment on [...] Interpretation and review of laboratory results Abnormal [facility] Work Phone: 1 PT Coag (PPP) [Time] 27.4 s High 9.0 - 12.0 s [facility] Work Phone: Comment on above: . Test Performed by [facility], [address], [place], [place] [address] [facility] Work Phone: SARS-CoV-2 Antigenon 022 [...] can be found at the following sites: https://www.Conjunct.gov/media/444177/download https://www.Conjunct.gov/media/804839/download Performed By: #### C OVAG #### [facility] [address] [place] [address] [facility] 10-28-2021 Hematocrit (Bld) [Volume fraction] 33.4 % Low 40.0 - 52.0 % [facility] Work Phone: Hemoglobin (Bld) [Mass/Vol] 11.0 g/dL Low 13.0 - 18.0 g/dL [facility] Work Phone: 1 Interpretation and review of laboratory results Abnormal [facility] Work Phone: MCH (RBC) [Entitic mass] 27.8 pg 26.0 - 34.0 pg [facility] Work Phone: MCHC (RBC) [Mass/Vol] 32.8 % 32.0 - 36.0 % [facility] Work Phone: MCV (RBC) [Entitic vol] 84.8 fL 80.0 - 98.0 fL [facility] Work Phone: Platelet distribution width (Bld) [Ratio] 17.1 % High 11.5 - 14.5 % [facility] Work Phone: ) Platelet mean volume (Bld) [Entitic vol] 8.3 fL 7.4 - 12.4 fL [employer] Work Phone: [phone] Comment on above: MPV is a calculated measurement using platelet volume ratio. Platelets (Bld) [#/Vol] 344 10*3/uL 140 - 440 10*3/uL [email or web address] Work Phone: 1 RBC (Bld) [#/Vol] 3.94 10*6/uL Low 4.40 - 5.9 0 10*6/uL [email or web address] Work Phone: 1) WBC (Bld) [#/Vol] 10.0 10*3/uL 3.6 - 10.7 10*3/uL [employer] Work Phone: [phone] Test Performed by [facility], [address] [place], [place] [address] [facility] Work Phone: [phone] Comp Metabolic Panelon 10-28 ALP [Catalytic activity/Vol] 103 U/L Normal 38-126 [facility] Comment on above: Performed By: #### C A19O, LUPUS #### The performing lab is in the report. #### NSEO #### [facility] #### HEMDF, LDH3, BMP3, MG3, PT, CEA2 #### [facility] [address] [place] [address] #### B2GPM, B2GPA, B2GPG #### [address] [address] ALT [Catalytic activity/Vol] 26 U/L Normal 0-49 [...] PT, CEA2 #### [facility] [address] [place] [address] #### B2GPM, B2GPA, B2GPG #### [address] AST [Catalytic activity/Vol] 24 U/L Normal 15-46 [facility] Comment on above: Performed By: #### C A19O, LUPUS #### The performing lab is in the report. #### NSEO #### [facility] #### HEMDF, LDH3, BMP3, MG3, PT, CEA2 #### [facility] [address] [place] #### B2GPM, B2GPA, B2GPG #### [address] Calcium [Mass/Vol] 9.1 mg/dL Normal 8.4-10.4 [facility] Comment on above: Performed By: #### C A19O, LUPUS #### The performing lab is in the report. #### NSEO #### [facility] #### HEMDF, LDH3, BMP3, MG3, PT, CEA2 #### [facility] [address] [place] #### B2GPM, B2GPA, B2GPG #### [address] Glucose [Mass/Vol] 117 mg/dL High 70-100 [facility] Comment on above: Performed By: #### C A19O, LUPUS #### The performing lab is in the report. #### NSEO #### [facility] #### HEMDF, LDH3, BMP3, MG3, PT, CEA2 #### [facility] [address] [place] #### B2GPM, B2GPA, B2GPG #### [address] Urea nitrogen [Mass/Vol] 16 mg/dL Normal 7-17 [facility] Comment on above: Performed By: #### C A19O, LUPUS #### The performing lab is in the report. #### NSEO #### [facility] #### HEMDF, LDH3, BMP3, MG3, PT, CEA2 #### [place] [address] [place] [address] #### B2GPM, B2GPA, B2GPG #### [address] Anion gap [Moles/Vol] 5 mmol/L Normal 3-13 [facility] Comment on above: Performed By: #### C A19O, LUPUS #### The performing lab is in the report. #### NSEO #### [facility] #### HEMDF, LDH3, BMP3, MG3, PT, CEA2 #### [address] [place] #### B2GPM, B2GPA, B2GPG #### [address] Bilirubin [Mass/Vol] 0.4 mg/dL Normal 0.2-1.3 [facility] Comment on above: Performed By: #### C A19O, LUPUS #### The performing lab is in the report. #### NSEO #### [facility] #### HEMDF, LDH3, BMP3, MG3, PT, CEA2 #### [address] [place] #### B2GPM, B2GPA, B2GPG #### [address] CO2 [Moles/Vol] 29 mmol/L Normal 22-30 [facility] Comment on above: Performed By: #### C A19O, LUPUS #### The performing lab is in the report. #### NSEO #### [facility] #### HEMDF, LDH3, BMP3, MG3, PT, CEA2 #### [address] [place] #### B2GPM, B2GPA, B2GPG #### [address] [place], [place] Creatinine [Mass/Vol] 0.71 mg/dL Normal 0.52-1.25 [facility] Comment on above: Performed By: #### C A19O, LUPUS #### The performing lab is in the report. #### NSEO #### [facility] #### HEMDF, LDH3, BMP3, MG3, PT, CEA2 #### [facility] [address] [place] [address] #### B2GPM, B2GPA, B2GPG #### [address] eGFR OTHER > 90.0 Normal >60 [...] #### [facility] [address] [place] [address] #### B2GPM, B2GPA, B2GPG #### [address] GFR/1.73 sq M.predicted among blacks MDRD (S/P/Bld) [Vol rate/Area] mL/min/{1.73_m2} Normal >60 [facility] Comment on above: Performed By: #### C A19O, LUPUS #### The performing lab is in the report. #### NSEO #### [facility] #### HEMDF, LDH3, BMP3, MG3, PT, CEA2 #### [place] [place] [address] #### B2GPM, B2GPA, B2GPG #### [address] Protein [Mass/Vol] 7.1 g/dL Normal 6.3-8.2 [facility] Comment on above: Performed By: #### C A19O, LUPUS #### The performing lab is in the report. #### NSEO #### [facility] #### HEMDF, LDH3, BMP3, MG3, PT, CEA2 #### [address] [place] [address] #### B2GPM, B2GPA, B2GPG #### [address] Potassium [Moles/Vol] 3.5 mmol/L Normal 3.5-5.1 [facility] Comment on above: Performed By: #### C A19O, LUPUS #### The performing lab is in the report. #### NSEO #### [facility] #### HEMDF, LDH3, BMP3, MG3, PT, CEA2 #### [address] [place] [address] #### B2GPM, B2GPA, B2GPG #### [address] Sodium [Moles/Vol] 138 mmol/L Normal 135-145 [facility] Comment on above: Performed By: #### C A19O, LUPUS #### The performing lab is in the report. #### NSEO #### [facility] #### HEMDF, LDH3, BMP3, MG3, PT, CEA2 #### [place] [address] [place] [address] #### B2GPM, B2GPA, B2GPG #### [address] Albumin [Mass/Vol] 3.7 g/dL Normal 3.5-5.0 [facility] Comment on above: Performed By: #### C A19O, LUPUS #### The performing lab is in the report. #### NSEO #### [facility] #### HEMDF, LDH3, BMP3, MG3, PT, CEA2 #### [place] [address] [place] [address] #### B2GPM, B2GPA, B2GPG #### [address] Chloride [Moles/Vol] 104 mmol/L Normal 98-107 [facility] Comment on above: Performed By: #### C A19O, LUPUS #### The performing lab is in the report. #### NSEO #### [facility] #### HEMDF, LDH3, BMP3, MG3, PT, CEA2 #### [address] [place] [address] #### B2GPM, B2GPA, B2GPG #### [address] Comprehensive Metabolic Pane kiel 10-28-2021 Albumin [Mass/Vol] 3.7 g/dL 3.5 - 5.0 g/dL [facility] Work Phone: ALP (Bld) [Catalytic activity/Vol] 103 U/L 38 - 126 U/L [facility] Work Phone: ALT [Catalytic activity/Vol] 26 U/L 0 - 49 U/L [facility] Work Phone: Comment on above: The ALT test is perf ormed by an updated assay method. Please note that the reference intervals have been changed and are now sex specific. Anion gap [Moles/Vol] 5 mmol/L 3 - 13 mmol/L [facility] Work Phone: [phone] AST [Catalytic activity/Vol] 24 U/L 15 - 46 U/L [facility] Work Phone: [phone] Bilirubin [Mass/Vol] 0.4 mg/dL 0.2 - 1 .3 mg/dL [facility] Work Phone: ) 222 Calcium [Mass/Vol] 9.1 mg/dL 8.4 - 10. 4 mg/dL [facility] Work Phone: ) 222 Chloride [Moles/Vol] 104 mmol/L 98 - 10 7 mmol/L [facility] Work Phone: () 222 CO2 [Moles/Vol] 29 mmol/L 22 - 30 mmol/L [facility] Work Phone: Creatinine [Mass/Vol] 0.71 mg/dL 0.52 - 1.25 mg/dL [facility] Work Phone: [phone] IF NonAfrican Croatian >90.0 >60 mL/min [facility] Work Phone: Comment on above: [...] fraction] 7.1 g/dL 6.3 - 8.2 g/dL [facility] Work Phone: [phone] GFR/1.73 sq M.predicted among blacks MDRD (S/P/Bld) [Vol rate/Area] mL/min/{1.73_m2} >60 mL/min [facility] Work Phone: Glucose [Mass/Vol] 117 mg/dL High 70 - 100 mg/dL [facility] Work Phone: [phone] Interpretation and review of laboratory results Abnormal [facility] Work Phone: [phone] Potassium [Moles/Vol] 3.5 mmol/L 3.5 - 5.1 mmol/L [facility] Work Phone: [phone] Sodium [Moles/Vol] 138 mmol/L 135 - 145 mmol/L [facility] Work Phone: [phone] Urea nitrogen (BldV) [Mass/Vol] 16 mg/dL 7 - 17 mg/dL [facility] Work Phone: [phone] Test Performed by [facility], [address] [place], [place] [id number] [place] [address] LAB [facility] Work Phone: [phone] Hemogramon 10-28-2021 Erythrocyte distribution width (RBC) [Ratio] 17.1 % High 11.5-14.5 [facility] Comment on above: Performed By: #### C A19O, LUPUS #### The performing lab is in the report. #### NSEO #### [facility] #### HEMDF, LDH3, BMP3, MG3, PT, CEA2 #### [address] [address] #### B2GPM, B2GPA, B2GPG #### [address] Hematocrit (Bld) [Volume fraction] 33.4 % Low 40.0-52.0 [facility] Comment on above: Performed By: #### C A19O, LUPUS #### The performing lab is in the report. #### NSEO #### [facility] #### HEMDF, LDH3, BMP3, MG3, PT, CEA2 #### [address] [address] #### B2GPM, B2GPA, B2GPG #### [address] Hemoglobin (Bld) [Mass/Vol] 11.0 g/dL Low 13.0-18.0 [facility] Comment on above: Performed By: #### C A19O, LUPUS #### The performing lab is in the report. #### NSEO #### [facility] #### HEMDF, LDH3, BMP3, MG3, PT, CEA2 #### [facility] [address] [place] [address] #### B2GPM, B2GPA, B2GPG #### [address] MCH (RBC) [Entitic mass] 27.8 pg Normal 26.0-34.0 [facility] Comment on above: Performed By: #### C A19O, LUPUS #### The performing lab is in the report. #### NSEO #### [facility] #### HEMDF, LDH3, BMP3, MG3, PT, CEA2 #### [address] [place] [address] #### B2GPM, B2GPA, B2GPG #### [address] MCHC 32.8 % Normal 32.0-36.0 [facility] Comment on above: Performed By: #### C A19O, LUPUS #### The performing lab is in the report. #### NSEO #### [facility] #### HEMDF, LDH3, BMP3, MG3, PT, CEA2 #### [address] [place] [address] #### B2GPM, B2GPA, B2GPG #### [address] MCV (RBC) [Entitic vol] 84.8 fL Normal 80.0-98.0 [facility] Comment on above: Performed By: #### C A19O, LUPUS #### The performing lab is in the report. #### NSEO #### [facility] #### HEMDF, LDH3, BMP3, MG3, PT, CEA2 #### [facility] [address] [place] [address] #### B2GPM, B2GPA, B2GPG #### [address] Platelet mean volume (Bld) [Entitic vol] 8.3 fL Normal 7.4-12.4 [facility] Comment on above: Result Comment: MPV is a calculated measurement using platelet volume ratio. Performed By: #### C A19O, LUPUS #### The performing lab is in the report. #### NSEO #### [facility] #### HEMDF, LDH3, BMP3, MG3, PT, CEA2 #### [place] [address] [place] #### B2GPM, B2GPA, B2GPG #### [address] Platelets (Bld) [#/Vol] 344 10*3/uL Normal 140-440 [facility] Comment on above: Performed By: #### C A19O, LUPUS #### The performing lab is in the report. #### NSEO #### [facility] #### HEMDF, LDH3, BMP3, MG3, PT, CEA2 #### [address] [place] #### B2GPM, B2GPA, B2GPG #### [address] RBC (Bld) [#/Vol] 3.94 10*6/uL Low 4.40-5.90 [facility] Comment on above: Performed By: #### C A19O, LUPUS #### The performing lab is in the report. #### NSEO #### [facility] #### HEMDF, LDH3, BMP3, MG3, PT, CEA2 #### [place] [address] [place] #### B2GPM, B2GPA, B2GPG #### [address] [place] [address] WBC (Bld) [#/Vol] 10.0 10*3/uL Normal 3.6-10.7 [facility] Comment on above: Performed By: #### C A19O, LUPUS #### The performing lab is in the report. #### NSEO #### [facility] #### HEMDF, LDH3, BMP3, MG3, PT, CEA2 #### [facility] [address] [place] [address] #### B2GPM, B2GPA, B2GPG #### [facility] [address] [place] [address] Neuron Specific Enolaseon Neuron Specific Enolase 20.8 [...] Serum This assay is performed using the [employer] NSE Kryptor Immunoassay. Results obtained with different assay methods or kits cannot be used interchangeably. Results cannot be interpreted as absolute evidence of the presence or absence of malignant disease. This test was developed and its performance characteristics determined by [employer]. It has not been cleared or approved by the [place] Food and Drug Administration. This test was performed in a CLIA certified laboratory and is intended for clinical purposes. Performed By: #### C OVAG #### [facility] [address] [place] [address] Neuron specific enolase (NSE )on 10-28-2021 Neuron Specific Enolase 20.8 [facility] Work Phone: Comment on above: Neuron Specific Enol ase, Serum 20.8 ng/mL H (Ref Interval: <=12.7) NSE and Hgb are elevated in the specimen. The elevated NSE may be a result of hemolysis as NSE is expressed in red blood cells. Interpret results with caution. INTERPRETIVE INFORMATION: Neuron Specific Enolase in Serum This assay is performed using the [employer] NSE Kryptor Immunoassay. Results obtained with different assay methods or kits cannot be used interchangeably. Results cannot be interpreted as absolute evidence of the presence or absence of malignant disease. This test was developed and its performance characteristics determined by [employer]. It has not been cleared or approved by the [place] Food and Drug Administration. This test was performed in a CLIA certified laboratory and is intended for clinical purposes. 1 [facility] Work Phone: Prothrombin Timeon 2 [...] #### [facility] [address] [place] [address] #### B2GPM, B2GPA, B2GPG #### [address] [place], [place] PT Coag (PPP) [Time] 30.8 s High 9.0-12.0 [facility] Comment on above: Result Comment: . Performed By: #### C A19O, LUPUS #### The performing lab is in the report. #### NSEO #### [facility] #### HEMDF, LDH3, BMP3, MG3, PT, CEA2 #### [facility] [address] [place] [address] #### B2GPM, B2GPA, B2GPG #### [address] [address] Protime-INRon 10-28-2021 INR Coag (Bld) [Relative time] 3.1 {INR} High [facility] Work Phone: Comment on [...] Interpretation and review of laboratory results Abnormal [facility] Work Phone: PT Coag (PPP) [Time] 30.8 s High 9.0 - 12.0 s [facility] Work Phone: Comment on above: . Test Performed by [facility], [address] LAB [facility] Work Phone: MRI BRAIN WO CONTRASTon 10-06 Patient Name: ANDREW SIFUENTES Magnetic Resonance Imaging ACCESSION EXAM DATE/TIME PROCEDURE ORDERING PROVIDER [id number] 10/27/2021 13:14 EDT MRI Brain w/o Contrast UNASSIGNED, UNASSIGNED CPT code 27777 Reason For Exam (MRI Brain w/o Contrast) stroke Patient has DIRECT ENTRY MIDWIFE shunt in place, please follow Radiology protocol [...] OSAMA Transcribed Date and Time: 10/27/2021 2:39 [facility] RAD Venus Loyd MD - 10/27/2021 Patient [facility]: [id number]onance Imaging ACCESSION EXAM DATE/TIME PROCEDURE ORDERING PROVIDER [id number] 10/27/2021 13:14 EDT MRI Brain w/o Contrast UNASSIGNED, UNASSIGNED CPT code 53968 Reason For Exam (MRI Brain w/o Contrast) stroke Patient has DIRECT ENTRY MIDWIFE shunt in place, please follow Radiology protocol [...] Contrast Patient Name: ANDREW [facility]ELAZQUEZ [id number] Magnetic Resonance Imaging ACCESSION EXAM DATE/TIME PROCEDURE ORDERING PROVIDER [id number] 10/27/2021 13:14 EDT MRI Brain w/o Contrast UNASSIGNED, UNASSIGNED CPT code 46740 Reason For Exam (MRI Brain w/o Contrast) stroke Patient has DIRECT ENTRY MIDWIFE shunt in place, please follow Radiology protocol [...] 2:39 Normal [facility] Prothrombin Timeon 2 INR 2.1 High 0.9-1.1 [facility] [...] [facility] [address] [place] [address] PT Coag (PPP) [Time] 21.9 s High 9.0-12.0 [facility] Work Phone: Comment on above: . Result Comment: . Performed By: #### P T #### [facility] [address] [place] [address] Protime-INRon 10-27-2021 INR Coag (Bld) [Relative time] 2.1 {INR} High [facility] Work Phone: Comment on [...] Interpretation and review of laboratory results Abnormal [facility] Work Phone: Test Performed by [facility], [address], [place], [place] [address] [facility] Work Phone: CT HEAD WO CONTRASTon 2021 Patient Name: ANDREW SIFUENTES Computed Tomography ACCESSION EXAM DATE/TIME PROCEDURE ORDERING PROVIDER [id number] 10/26/2021 11:[address] Head or Brain w/o JUNIE PINEDA ALLISON Contrast CPT code 23936 Reason For Exam (CT Head or Brain w/o Contrast) hydrocephalus. thank you Report CLINICAL INFORMATION: Hydrocephalus. Shunt. 3 mm axial cuts through the head are obtained without IV contrast. The examination is compared to a previous study dated 06/29/2014. FINDINGS: Old DIRECT ENTRY MIDWIFE shunt tubing is noted bilaterally. The new [...] are clear. IMPRESSION: 1. Old and new DIRECT ENTRY MIDWIFE shunt tubing. 2. No hydrocephalus. 3. Atrophy [...] Tomography ACCESSION EXAM DATE/TIME PROCEDURE ORDERING PROVIDER [id number] 10/26/2021 11:[address] Head or Brain w/o JUNIE PIENDA, SARINA Contrast CPT code 60730 Reason For Exam (CT Head or Brain w/o Contrast) hydrocephalus. thank you Report CLINICAL INFORMATION: Hydrocephalus. Shunt. 3 mm axial cuts through the head are obtained without IV contrast. The examination is compared to a previous study dated 06/29/2014. FINDINGS: Old DIRECT ENTRY MIDWIFE shunt tubing is noted bilaterally. The new [...] are clear. IMPRESSION: 1. Old and new DIRECT ENTRY MIDWIFE shunt tubing. 2. No hydrocephalus. 3. Atrophy [...] Tomography ACCESSION EXAM DATE/TIME PROCEDURE ORDERING PROVIDER [id number] 10/26/2021 11:[address] Head or Brain w/o JUNIE PINEDA, SARINA Contrast CPT code 41802 Reason For Exam (CT Head or Brain w/o Contrast) hydrocephalus. thank you Report CLINICAL INFORMATION: Hydrocephalus. Shunt. 3 mm axial cuts through the head are obtained without IV contrast. The examination is compared to a previous study dated 06/29/2014. FINDINGS: Old DIRECT ENTRY MIDWIFE shunt tubing is noted bilaterally. The new [...] are clear. IMPRESSION: 1. Old and new DIRECT ENTRY MIDWIFE shunt tubing. 2. No hydrocephalus. 3. Atrophy [...] 10-26 Bony Tompkins MD 10/26/2021 4:06 PM [facility] [address] [facility] [place] [address] ROUTINE EEG REPORT Patient Name: Andrew Sifuentes : 1950 Date of Study: 10/26/2021 Duration Recorded: 23 minutes EEG#: [id number] WEEDER: CASTRO PROVIDER REQUESTING STUDY: Dr. Barreto REASON FOR EXAM: seizures HISTORY: Andrew Sfiuentes is a 71 y.o. male with history of obstructive hydrocephalus s/p DIRECT ENTRY MIDWIFE shunt in 1987, needing multiple revisions and [...] normal limits and both old and new DIRECT ENTRY MIDWIFE shunt tubing noted. At present patient is awake, follows commands, was able to tell his name, and that he was in hospital but not oriented to time. Per documentation patient had NCSE in May 2021, was on Vimpat, but it was discontinued as there was no evidence of recurrent seizures in July 2021 by Neurology at [facility], per daughter patient was on Dilantin [...] study with video was carried out at [facility]. Scalp electrodes were positioned in person by an sleep lab technologist, following patient education, according to the 10-20 International system of electrode placement and maintained for integrity and quality of the recording. EEG data with video was recorded continuously and digitally stored. The sleep lab technologist reviewed all automated detections and [...] No normal vari (more content not included)... [employer] Work Phone: [employer] Work Phone: No Panel Informationon 10-26 Radiology Study observation (narrative) [employer] Phone: Prothrombin Timeon 2 INR 1.9 High 0.9-1.1 [facility] Comment on above: Result Comment: Harry mmended [...] Infarction Performed By: #### C OVAG #### [facility] [address] [place] [address] PT Coag (PPP) [Time] 19.7 s High 9.0-12.0 [employer] Comment on above: Result Comment: . Performed By: #### C OVAG #### [facility] [address] [place] [address] Protime-INRon 10-26-2021 INR Coag (Bld) [Relative time] [...] Interpretation and review of laboratory results Abnormal [facility] Work Phone: PT Coag (PPP) [Time] 19.7 s High 9.0 - 12.0 s [facility] Work Phone: Comment on above: . Test Performed by [facility] [email or web address] [facility], [address] [place], [place] [address] [facility] Work Phone: CA 19-9on 10-25-2021 CA 19-9 17 U/mL Normal <=35 [facility] Work Phone: Comment on [...] or absence of malignant disease. Performed By: [place] [address] [employer] Sales Representative: Quiana Castro MD Result Comment: INTE RPRETIVE [...] or absence of malignant disease. Performed By: [place] [address] [employer] Sales Representative: Quiana Castro MD Performed By: #### C OVAG #### [facility] [email or web address] [facility] [address] [place] [address] Cancer Antigen 19-9on 2021 [facility] Work Phone: Prothrombin Timeon 2 INR 1.5 High 0.9-1.1 [facility] Comment on [...] #### [facility] [address] [place] [address] PT Coag (PPP) [Time] 15.6 s High 9.0-12.0 [facility] [employer] [facility] Comment on above: Result Comment: . Performed By: #### P T #### [facility] [email or web address] [facility] [address] [place] [address] Protime-INRon 10-25-2021 INR Coag (Bld) [Relative time] 1.5 {INR} High [facility] Work Phone: Comment on [...] Interpretation and review of laboratory results Abnormal [facility] Work Phone: PT Coag (PPP) [Time] 15.6 s High 9.0 - 12.0 s [facility] Work Phone: Comment on above: . Test Performed by [facility] [email or web address] [facility], [address] [place], [place] [address] [facility] Work Phone: B-2 Glycoprotein (IGA)on [...] gap [Moles/Vol] 8 mmol/L Normal 3-13 [facility] Comment on above: Performed By: #### C A19O, LUPUS #### The performing lab is in the report. #### NSEO #### [facility] #### HEMDF, LDH3, BMP3, MG3, PT, CEA2 #### [facility] [address] [place] [address] #### B2GPM, B2GPA, B2GPG #### [facility] [address] [place] [address] Calcium [Mass/Vol] 8.8 mg/dL Normal 8.4-10.4 [facility] Comment on above: Performed By: #### C A19O, LUPUS #### The performing lab is in the report. #### NSEO #### [facility] #### HEMDF, LDH3, BMP3, MG3, PT, CEA2 #### [facility] [address] [place] [address] #### B2GPM, B2GPA, B2GPG #### [address] CO2 [Moles/Vol] 25 mmol/L Normal 22-30 [facility] Comment on above: Performed By: #### C A19O, LUPUS #### The performing lab is in the report. #### NSEO #### [facility] #### HEMDF, LDH3, BMP3, MG3, PT, CEA2 #### [facility] [address] [place] [address] #### B2GPM, B2GPA, B2GPG #### [address] Creatinine [Mass/Vol] 0.74 mg/dL Normal 0.52-1.25 [facility] Comment on above: Performed By: #### C A19O, LUPUS #### The performing lab is in the report. #### NSEO #### [facility] #### HEMDF, LDH3, BMP3, MG3, PT, CEA2 #### [facility] [address] [place] [address] #### B2GPM, B2GPA, B2GPG #### [address] eGFR OTHER > 90.0 Normal >60 [...] #### [facility] [address] [place] [address] #### B2GPM, B2GPA, B2GPG #### [address] GFR/1.73 sq M.predicted among blacks MDRD (S/P/Bld) [Vol rate/Area] mL/min/{1.73_m2} Normal >60 [facility] Comment on above: Performed By: #### C A19O, LUPUS #### The performing lab is in the report. #### NSEO #### [facility] #### HEMDF, LDH3, BMP3, MG3, PT, CEA2 #### [address] [place] [address] #### B2GPM, B2GPA, B2GPG #### [address] Glucose [Mass/Vol] 116 mg/dL High 70-100 [facility] Comment on above: Performed By: #### C A19O, LUPUS #### The performing lab is in the report. #### NSEO #### [facility] #### HEMDF, LDH3, BMP3, MG3, PT, CEA2 #### [address] [place] [address] #### B2GPM, B2GPA, B2GPG #### [address] Urea nitrogen [Mass/Vol] 19 mg/dL High 7-17 [facility] Comment on above: Performed By: #### C A19O, LUPUS #### The performing lab is in the report. #### NSEO #### [facility] #### HEMDF, LDH3, BMP3, MG3, PT, CEA2 #### [facility] [address] [place] [address] #### B2GPM, B2GPA, B2GPG #### [address] Chloride [Moles/Vol] 107 mmol/L Normal 98-107 [facility] Comment on above: Performed By: #### C A19O, LUPUS #### The performing lab is in the report. #### NSEO #### [facility] #### HEMDF, LDH3, BMP3, MG3, PT, CEA2 #### [place] [address] [place] [address] #### B2GPM, B2GPA, B2GPG #### [address] Potassium [Moles/Vol] 3.9 mmol/L Normal 3.5-5.1 [facility] Comment on above: Performed By: #### C A19O, LUPUS #### The performing lab is in the report. #### NSEO #### [facility] #### HEMDF, LDH3, BMP3, MG3, PT, CEA2 #### [place] [address] [place] [address] #### B2GPM, B2GPA, B2GPG #### [address] Sodium [Moles/Vol] 140 mmol/L Normal 135-145 [facility] Comment on above: Performed By: #### C A19O, LUPUS #### The performing lab is in the report. #### NSEO #### [facility] #### HEMDF, LDH3, BMP3, MG3, PT, CEA2 #### [place] [address] [place] [address] #### B2GPM, B2GPA, B2GPG #### [address] Anion gap [Moles/Vol] 8 mmol/L 3 - 13 mmol/L [facility] Calcium [Mass/Vol] 8.8 mg/dL 8.4 - 10. 4 mg/dL [facility] Chloride [Moles/Vol] 107 mmol/L 98 - 10 7 mmol/L [facility] CO2 [Moles/Vol] 25 mmol/L 22 - 30 mmol/L [facility] Creatinine [Mass/Vol] 0.74 mg/dL 0.52 - 1.25 mg/dL [facility] EGFR IF NonAfrican Croatian >90.0 >60 mL/min [facility] Comment on above: KDIGO guidelines [...] 116 mg/dL High 70 - 100 mg/dL [facility] Interpretation and review of laboratory results Abnormal [facility] Potassium [Moles/Vol] 3.9 mmol/L 3.5 - 5.1 mmol/L [facility] Sodium [Moles/Vol] 140 mmol/L 135 - 145 mmol/L [facility] Urea nitrogen (BldV) [Mass/Vol] 19 mg/dL High 7 - 17 mg/dL [facility] Test Performed by [facility], [address] [place], [place] [address] [facility] Beta-2 Glycoprotein I IgAon 10-24-2021 Beta-2 Glycoprotein I IgA < 2.0 Normal [facility] Comment on above: Result Comment: Inte rpretive Information: Results equal to or greater than 20 U/mL = POSITIVE Results less than 20 U/mL = NEGATIVE Performed By: #### C OVAG #### [facility] [address] [place] [address] Beta-2 Glycoprotein I IgGon 10-24-2021 Beta-2 Glycoprotein I IgG < 1.4 Normal [facility] Comment on above: Result Comment: Inte rpretive Information: Results equal to or greater than 20 U/mL = POSITIVE Results less than 20 U/mL = NEGATIVE Performed By: #### C OVAG #### [facility] [address] [place] [address] Beta-2 Glycoprotein I IgMon 10-24-2021 Beta-2 Glycoprotein I IgM < 1.5 Normal [facility] Comment on above: Result Comment: Inte rpretive Information: Results equal to or greater than 20 U/mL = POSITIVE Results less than 20 U/mL = NEGATIVE Performed By: #### C OVAG #### [facility] [address] [place] [address] No Panel Informationon 10-24 [facility] Test Performed by [facility], [address] [place] [address] [facility] Work Phone: PROTEIN C FUNCTIONALon 10-24 Interpretation and review of laboratory results Abnormal [facility] Protein C-Functional 185 % High [...] reference intervals for this test in the [facility] Laboratory Test Directory ([employer]). Performed by [facility], [address] [place] [address] www.[email or web address], Quiana Castro MD - Lab. Director Protein C, Functionalon 10-06 Protein C, Functional 185 % High 83-168 [facility] Comment on above: Result Comment: INTE RPRETIVE [...] reference intervals for this test in the [facility] Laboratory Test Directory ([employer]). Performed by [facility], [address] [place] [address] www.[employer], Quiana Castro MD - Lab. Director Performed By: #### P T #### [employer] [facility] [address] [facility] [place] [address] Protein S, Functionalon 10-06 Protein S, Functional [...] reference intervals for this test in the [facility] Laboratory Test Directory ([employer]). Performed by [facility], [address] [place] [address] www.[employer], Quiana Castro MD - Lab. Director Result [...] reference intervals for this test in the [facility] Laboratory Test Directory ([employer]). Performed by [facility], [address] [place] [address] [employer], Quiana Castro MD - Lab. Director Performed By: #### P T #### [employer] [facility] [address] [facility] [place] [address] Prothrombin Timeon INR 1.2 High 0.9-1.1 [facility] [...] #### [facility] [address] [place] [address] #### B2GPM, B2GPA, B2GPG #### [address] [phone] PT Coag (PPP) [Time] 12.6 s High 9.0-12.0 [facility] Comment on above: Result Comment: . Performed By: #### C A19O, LUPUS #### The performing lab is in the report. #### NSEO #### [facility] #### HEMDF, LDH3, BMP3, MG3, PT, CEA2 #### [facility] [address] [place] [address] #### B2GPM, B2GPA, B2GPG #### [address] [phone] Protime-INRon 10-24-2021 INR Coag (Bld) [Relative time] 1.2 {INR} High [facility] Comment on above: Recommended Anticoag [...] Interpretation and review of laboratory results Abnormal [facility] PT Coag (PPP) [Time] 12.6 s High 9.0 - 12.0 s [facility] Comment on above: . Test Performed by [facility], [address] [place] [address] [facility] Basic Metabolic Panelon - Anion gap [Moles/Vol] 10 mmol/L Normal 3-13 [facility] Comment on above: Performed By: #### C A19O, LUPUS #### The performing lab is in the report. #### NSEO #### [facility] #### HEMDF, LDH3, BMP3, MG3, PT, CEA2 #### [facility] [address] [place] [address] #### B2GPM, B2GPA, B2GPG #### [address] [phone] Calcium [Mass/Vol] 9.6 mg/dL Normal 8.4-10.4 [facility] Comment on above: Performed By: #### C A19O, LUPUS #### The performing lab is in the report. #### NSEO #### [facility] #### HEMDF, LDH3, BMP3, MG3, PT, CEA2 #### [facility] [address] [place] [address] #### B2GPM, B2GPA, B2GPG #### [address] [address] CO2 [Moles/Vol] 27 mmol/L Normal 22-30 [facility] Comment on above: Performed By: #### C A19O, LUPUS #### The performing lab is in the report. #### NSEO #### [facility] #### HEMDF, LDH3, BMP3, MG3, PT, CEA2 #### [facility] [address] [place] [address] #### B2GPM, B2GPA, B2GPG #### [address] Glucose [Mass/Vol] 109 mg/dL High 70-100 [facility] Comment on above: Performed By: #### C A19O, LUPUS #### The performing lab is in the report. #### NSEO #### [facility] #### HEMDF, LDH3, BMP3, MG3, PT, CEA2 #### [address] [place] [address] #### B2GPM, B2GPA, B2GPG #### [address] Urea nitrogen [Mass/Vol] 18 mg/dL High 7-17 [facility] Comment on above: Performed By: #### C A19O, LUPUS #### The performing lab is in the report. #### NSEO #### [facility] #### HEMDF, LDH3, BMP3, MG3, PT, CEA2 #### [address] [place] #### B2GPM, B2GPA, B2GPG #### [address] Creatinine [Mass/Vol] 0.82 mg/dL Normal 0.52-1.25 [facility] Comment on above: Performed By: #### C A19O, LUPUS #### The performing lab is in the report. #### NSEO #### [facility] #### HEMDF, LDH3, BMP3, MG3, PT, CEA2 #### [address] [place] #### B2GPM, B2GPA, B2GPG #### [address] GFR/1.73 sq M.predicted among blacks MDRD (S/P/Bld) [Vol rate/Area] mL/min/{1.73_m2} Normal >60 [facility] Comment on above: Performed By: #### C A19O, LUPUS #### The performing lab is in the report. #### NSEO #### [facility] #### HEMDF, LDH3, BMP3, MG3, PT, CEA2 #### [facility] [address] [place] [address] #### B2GPM, B2GPA, B2GPG #### [facility] [address] [place] [address] GFR/1.73 sq M.predicted among non-blacks MDRD (S/P/Bld) [...] [facility] [address] [place] [address] #### B2GPM, B2GPA, B2GPG #### [facility] [address], [place] Chloride [Moles/Vol] 104 mmol/L Normal 98-107 [facility] Comment on above: Performed By: #### C A19O, LUPUS #### The performing lab is in the report. #### NSEO #### [facility] #### HEMDF, LDH3, BMP3, MG3, PT, CEA2 #### [place] [address] [place] [address] #### B2GPM, B2GPA, B2GPG #### [address] Potassium [Moles/Vol] 3.9 mmol/L Normal 3.5-5.1 [facility] Comment on above: Performed By: #### C A19O, LUPUS #### The performing lab is in the report. #### NSEO #### [facility] #### HEMDF, LDH3, BMP3, MG3, PT, CEA2 #### [place] [address] [place] [address] #### B2GPM, B2GPA, B2GPG #### [address] Sodium [Moles/Vol] 142 mmol/L Normal 135-145 [facility] Comment on above: Performed By: #### C A19O, LUPUS #### The performing lab is in the report. #### NSEO #### [facility] #### HEMDF, LDH3, BMP3, MG3, PT, CEA2 #### [address] [place] [place] [address] #### B2GPM, B2GPA, B2GPG #### [address] Anion gap [Moles/Vol] 10 mmol/L 3 - 13 mmol/L [facility] Work Phone: [phone] Calcium [Mass/Vol] 9.6 mg/dL 8.4 - 10. 4 mg/dL [facility] Work Phone: [phone] Chloride [Moles/Vol] 104 mmol/L 98 - 10 7 mmol/L [facility] Work Phone: [phone] CO2 [Moles/Vol] 27 mmol/L 22 - 30 mmol/L [facility] Work Phone: [phone] Creatinine [Mass/Vol] 0.82 mg/dL 0.52 - 1.25 mg/dL [employer] Work Phone: [phone] EGFR IF NonAfrican Croatian 89.9 mL/min >60 [facility] Work Phone: [phone] Comment on above: KDIGO guidelines pro [...] MDRD (S/P/Bld) [Vol rate/Area] mL/min/{1.73_m2} >60 mL/min [facility] Work Phone: [phone] Glucose [Mass/Vol] 109 mg/dL High 70 - 100 mg/dL [facility] Work Phone: [phone] Interpretation and review of laboratory results Abnormal [facility] Work Phone: [phone] Potassium [Moles/Vol] 3.9 mmol/L 3.5 - 5.1 mmol/L [facility] Work Phone: [phone] Sodium [Moles/Vol] 142 mmol/L 135 - 145 mmol/L [employer] Work Phone: [phone] Urea nitrogen (BldV) [Mass/Vol] 18 mg/dL High 7 - 17 mg/dL [facility] Work Phone: [phone] CBC with Auto Differentialon 10-23-2021 Absolute Baso # 0.1 10*3/uL 0.0 - 0.2 10*3/uL [facility] Work Phone: Absolute Neut # 6.6 10*3/uL 1.8 - 7.0 10*3/uL [facility] Work Phone: [phone] Basophils/100 WBC (Bld) 1.1 % 0.0 - 2.0 % [email or web address] Work Phone: [phone]() 222 Eosinophils (Bld) [#/Vol] 0.4 10*3/uL 0.0 - 0.5 10*3/uL [facility] Work Phone: [phone] 222 Eosinophils/100 WBC (Bld) 3.9 % 1.0 - 6.0 % [email or web address] Work Phone: 1() 222 Granulocytes/100 WBC (Bld) 64.0 % 40.0 - 80.0 % [email or web address] Work Phone: ) 222 Hematocrit (Bld) [Volume fraction] 35.1 % Low 40.0 - 52.0 % [email or web address] Work Phone: [phone]) 222 Hemoglobin (Bld) [Mass/Vol] 11.6 g/dL Low 13.0 - 18.0 g/dL [email or web address] Work Phone: [phone] Interpretation and review of laboratory results Abnormal [employer] Work Phone: 1() 222 Lymphocytes (Bld) [#/Vol] 2.6 10*3/uL 1.0 - 4.3 10*3/uL [email or web address] Work Phone: 1() 222 Lymphocytes/100 WBC (Bld) 25.0 % 20.0 - 40.0 % [email or web address] Work Phone: [phone]) 222 MCH (RBC) [Entitic mass] 28.4 pg 26.0 - 34.0 pg [facility] Work Phone: 1() 222 MCHC (RBC) [Mass/Vol] 33.1 % 32.0 - 36.0 % [facility] Work Phone: [phone] 222 MCV (RBC) [Entitic vol] 85.9 fL 80.0 - 98.0 fL [email or web address] Work Phone: [phone]) 222 Monocytes (Bld) [#/Vol] 0.6 10*3/uL 0.0 - 0.8 10*3/uL [facility] Work Phone: [phone]) 222 Monocytes/100 WBC (Bld) 6.0 % 2.0 - 10.0 % [facility] Work Phone: [phone] Platelet distribution width (Bld) [Ratio] 17.4 % High 11.5 - 14.5 % [facility] Work Phone: [phone] Platelet mean volume (Bld) [Entitic vol] 8.1 fL 7.4 - 12.4 fL [facility] Work Phone: [phone] Comment on above: MPV is a calculated measurement using platelet volume ratio. Platelets (Bld) [#/Vol] 450 10*3/uL High 140 - 440 10*3/uL [facility] Work Phone: [phone] RBC (Bld) [#/Vol] 4.08 10*6/uL Low 4.40 - 5.9 0 10*6/uL [facility] Work Phone: [phone] WBC (Bld) [#/Vol] 10.3 10*3/uL 3.6 - 10.7 10*3/uL [facility] Work Phone: [phone] Test Performed by [facility], [address], [place] [id number] [place] [address] LAB [facility] Work Phone: [phone] CEAon 10-23-2021 CEA 0.8 ng/mL 0.0 - 3.0 ng/mL [facility] Work Phone: [phone] Test Performed by [facility], [address], [place] [id number] [place] [address] LAB [facility] Work Phone: [phone] Carcinoembryonic Agon 2021 Carcinoembryonic Ag. 0.8 ng/mL Normal 0.0-3.0 [facility] Comment on above: Performed By: #### C A19O, LUPUS #### The performing lab is in the report. #### NSEO #### [facility] #### HEMDF, LDH3, BMP3, MG3, PT, CEA2 #### [facility] [email or web address] [facility] [address] [place] [address] #### B2GPM, B2GPA, B2GPG #### [address] Hemogram w/ Autodiffon 10-23 Abs Baso Cnt 0.1 10*3/uL Normal 0.0-0.2 [facility] Comment on above: Performed By: #### C A19O, LUPUS #### The performing lab is in the report. #### NSEO #### [facility] #### HEMDF, LDH3, BMP3, MG3, PT, CEA2 #### [facility] [address] [place], [place] #### B2GPM, B2GPA, B2GPG #### [address] Abs Neutrophile Cnt 6.6 10*3/uL Normal 1.8-7.0 [facility] Comment on above: Performed By: #### C A19O, LUPUS #### The performing lab is in the report. #### NSEO #### [facility] #### HEMDF, LDH3, BMP3, MG3, PT, CEA2 #### [facility] [address] [place], [place] #### B2GPM, B2GPA, B2GPG #### [address] Basophils/100 WBC (Bld) 1.1 % Normal 0.0-2.0 [facility] Comment on above: Performed By: #### C A19O, LUPUS #### The performing lab is in the report. #### NSEO #### [facility] #### HEMDF, LDH3, BMP3, MG3, PT, CEA2 #### [facility] [address] [place], [place] #### B2GPM, B2GPA, B2GPG #### [address] Eosinophils (Bld) [#/Vol] 0.4 10*3/uL Normal 0.0-0.5 [facility] Comment on above: Performed By: #### C A19O, LUPUS #### The performing lab is in the report. #### NSEO #### [facility] #### HEMDF, LDH3, BMP3, MG3, PT, CEA2 #### [facility] [address] [place] [address] #### B2GPM, B2GPA, B2GPG #### [address] [address] Eosinophils/100 WBC (Bld) 3.9 % Normal 1.0-6.0 [facility] Comment on above: Performed By: #### C A19O, LUPUS #### The performing lab is in the report. #### NSEO #### [facility] #### HEMDF, LDH3, BMP3, MG3, PT, CEA2 #### [address] [place], [place] #### B2GPM, B2GPA, B2GPG #### [address] [address] Erythrocyte distribution width (RBC) [Ratio] 17.4 % High 11.5-14.5 [facility] Comment on above: Performed By: #### C A19O, LUPUS #### The performing lab is in the report. #### NSEO #### [facility] #### HEMDF, LDH3, BMP3, MG3, PT, CEA2 #### [address] [place] [address] #### B2GPM, B2GPA, B2GPG #### [address] [address] Granulocytes/100 WBC (Bld) 64.0 % Normal 40.0-80.0 [facility] Comment on above: Performed By: #### C A19O, LUPUS #### The performing lab is in the report. #### NSEO #### [facility] #### HEMDF, LDH3, BMP3, MG3, PT, CEA2 #### [place] [address] [place], [place] #### B2GPM, B2GPA, B2GPG #### [address] Hematocrit (Bld) [Volume fraction] 35.1 % Low 40.0-52.0 [facility] Comment on above: Performed By: #### C A19O, LUPUS #### The performing lab is in the report. #### NSEO #### [facility] #### HEMDF, LDH3, BMP3, MG3, PT, CEA2 #### [facility] [address] [place], [place] #### B2GPM, B2GPA, B2GPG #### [address] Hemoglobin (Bld) [Mass/Vol] 11.6 g/dL Low 13.0-18.0 [facility] Comment on above: Performed By: #### C A19O, LUPUS #### The performing lab is in the report. #### NSEO #### [facility] #### HEMDF, LDH3, BMP3, MG3, PT, CEA2 #### [facility] [address] [place] #### B2GPM, B2GPA, B2GPG #### [address] Lymphocytes (Bld) [#/Vol] 2.6 10*3/uL Normal 1.0-4.3 [facility] Comment on above: Performed By: #### C A19O, LUPUS #### The performing lab is in the report. #### NSEO #### [facility] #### HEMDF, LDH3, BMP3, MG3, PT, CEA2 #### [facility] [address] [place], [place] #### B2GPM, B2GPA, B2GPG #### [address] Lymphocytes/100 WBC (Bld) 25.0 % Normal 20.0-40.0 [facility] Comment on above: Performed By: #### C A19O, LUPUS #### The performing lab is in the report. #### NSEO #### [facility] #### HEMDF, LDH3, BMP3, MG3, PT, CEA2 #### [facility] [address] [place] [address] #### B2GPM, B2GPA, B2GPG #### [address] MCH (RBC) [Entitic mass] 28.4 pg Normal 26.0-34.0 [facility] Comment on above: Performed By: #### C A19O, LUPUS #### The performing lab is in the report. #### NSEO #### [facility] #### HEMDF, LDH3, BMP3, MG3, PT, CEA2 #### [address] [place], [place] #### B2GPM, B2GPA, B2GPG #### [address] MCHC 33.1 % Normal 32.0-36.0 [facility] Comment on above: Performed By: #### C A19O, LUPUS #### The performing lab is in the report. #### NSEO #### [facility] #### HEMDF, LDH3, BMP3, MG3, PT, CEA2 #### [facility] [address] [place], [place] #### B2GPM, B2GPA, B2GPG #### [address] MCV (RBC) [Entitic vol] 85.9 fL Normal 80.0-98.0 [facility] Comment on above: Performed By: #### C A19O, LUPUS #### The performing lab is in the report. #### NSEO #### [facility] #### HEMDF, LDH3, BMP3, MG3, PT, CEA2 #### [facility] [address] [place] #### B2GPM, B2GPA, B2GPG #### [address] Monocytes (Bld) [#/Vol] 0.6 10*3/uL Normal 0.0-0.8 [facility] Comment on above: Performed By: #### C A19O, LUPUS #### The performing lab is in the report. #### NSEO #### [facility] #### HEMDF, LDH3, BMP3, MG3, PT, CEA2 #### [facility] [address] [place] #### B2GPM, B2GPA, B2GPG #### [address] Monocytes/100 WBC (Bld) 6.0 % Normal 2.0-10.0 [facility] Comment on above: Performed By: #### C A19O, LUPUS #### The performing lab is in the report. #### NSEO #### [facility] #### HEMDF, LDH3, BMP3, MG3, PT, CEA2 #### [facility] [address] [place] #### B2GPM, B2GPA, B2GPG #### [address] Platelet mean volume (Bld) [Entitic vol] 8.1 fL Normal 7.4-12.4 [facility] Comment on above: Result Comment: MPV is a calculated measurement using platelet volume ratio. Performed By: #### C A19O, LUPUS #### The performing lab is in the report. #### NSEO #### [facility] #### HEMDF, LDH3, BMP3, MG3, PT, CEA2 #### [facility] [address] [place] #### B2GPM, B2GPA, B2GPG #### [address] Platelets (Bld) [#/Vol] 450 10*3/uL High 140-440 [facility] Comment on above: Performed By: #### C A19O, LUPUS #### The performing lab is in the report. #### NSEO #### [facility] #### HEMDF, LDH3, BMP3, MG3, PT, CEA2 #### [facility] [address] [place] [address] #### B2GPM, B2GPA, B2GPG #### [address] RBC (Bld) [#/Vol] 4.08 10*6/uL Low 4.40-5.90 [facility] Comment on above: Performed By: #### C A19O, LUPUS #### The performing lab is in the report. #### NSEO #### [facility] #### HEMDF, LDH3, BMP3, MG3, PT, CEA2 #### [facility] [address] [place] [address] #### B2GPM, B2GPA, B2GPG #### [address] WBC (Bld) [#/Vol] 10.3 10*3/uL Normal 3.6-10.7 [facility] Comment on above: Performed By: #### C A19O, LUPUS #### The performing lab is in the report. #### NSEO #### [facility] #### HEMDF, LDH3, BMP3, MG3, PT, CEA2 #### [facility] [address] [place] [address] #### B2GPM, B2GPA, B2GPG #### [address] LDHon 10-23-2021 LDH 136 U/L Normal 120-246 [facility] Comment on above: Performed By: #### C A19O, LUPUS #### The performing lab is in the report. #### NSEO #### [facility] #### HEMDF, LDH3, BMP3, MG3, PT, CEA2 #### [facility] [employer] [facility] [address] [place] [address] #### B2GPM, B2GPA, B2GPG #### [facility] [employer] [facility] [address] [place] [address] Lactate Dehydrogenaseon 06- LD 136 U/L 120 - 246 U/L [facility] Work Phone: MRI ABDOMEN WO CONTRASTon Patient Name: ANDREW SIFUENTES Magnetic Resonance Imaging ACCESSION EXAM DATE/TIME PROCEDURE ORDERING PROVIDER [id number] 10/23/2021 11:08 EDT MRI Abdomen w/o Contrast WING SRIVASTAVA CPT code 26413 Reason For Exam (MRI Abdomen w/o Contrast) [...] Imaging ACCESSION EXAM DATE/TIME PROCEDURE ORDERING PROVIDER [id number] 10/23/2021 11:08 EDT MRI Abdomen w/o Contrast WING SRIVASTAVA CPT code 53082 Reason For Exam (MRI Abdomen w/o Contrast) [...] VLADIMIR Transcribed Date and Time: 10/23/2021 4:36 [facility] Work Phone: MRI ABDOMEN WO CONTRASTOrder ed By: Unknown Result on 10-23-2021 [facility] MRI Abdomen w/o Contraston 0 10-23-2021 MRI Abdomen w/o Contrast Patient Name: ANDREW SIFUENTES Magnetic Resonance Imaging ACCESSION EXAM DATE/TIME PROCEDURE ORDERING PROVIDER [id number] 10/23/2021 11:08 EDT MRI Abdomen w/o Contrast WING SRIVASTAVA CPT code 72820 Reason For Exam (MRI Abdomen w/o Contrast) [...] 10-23-2021 Magnesium [Mass/Vol] 2.1 mg/dL Normal 1.6-2.3 [facility] Comment on above: Performed By: #### C A19O, LUPUS #### The performing lab is in the report. #### NSEO #### [facility] #### HEMDF, LDH3, BMP3, MG3, PT, CEA2 #### [facility] [address] [place] [address] #### B2GPM, B2GPA, B2GPG #### [facility] [address] [place] [address] Magnesium [Mass/Vol] 2.1 mg/dL 1.6 - 2 .3 mg/dL [facility] Work Phone: No Panel Informationon 10-23 Test Performed by [facility], [address] [place], [place] [address] [place] [address] LAB [facility] Work Phone: Prothrombin Timeon 2 [...] LDH3, BMP3, MG3, PT, CEA2 #### [address] [place] [address] #### B2GPM, B2GPA, B2GPG #### [address] [address] PT Coag (PPP) [Time] 12.2 s High 9.0-12.0 [facility] Comment on above: Result Comment: . Performed By: #### C A19O, LUPUS #### The performing lab is in the report. #### NSEO #### [facility] #### HEMDF, LDH3, BMP3, MG3, PT, CEA2 #### [address] [place] [address] #### B2GPM, B2GPA, B2GPG #### [address] [address] Protime-INRon 10-23-2021 INR Coag (Bld) [Relative time] 1.1 {INR} [facility] Work Phone: Comment on above: Recommended Anticoag [...] Comment on above: . Test Performed by [facility], [address] [place] [address] [facility] Work Phone: Basic Metabolic Panelon 10-05 Calcium [Mass/Vol] 8.9 mg/dL Normal 8.4-10.4 [facility] Comment on above: Performed By: #### P T #### [facility] [address] [place] [address] Glucose [Mass/Vol] 110 mg/dL High 70-100 [facility] Comment on above: Performed By: #### P T #### [facility] [address] [place] [address] Urea nitrogen [Mass/Vol] 14 mg/dL Normal 7-17 [facility] Comment on above: Performed By: #### P T #### [facility] [address] [place] [address] Anion gap [Moles/Vol] 7 mmol/L Normal 3-13 [facility] Comment on above: Performed By: #### P T #### [facility] [address] [place] [address] CO2 [Moles/Vol] 26 mmol/L Normal 22-30 [facility] Comment on above: Performed By: #### P T #### [facility] [address] [place] [address] Creatinine [Mass/Vol] 0.71 mg/dL Normal 0.52-1.25 [facility] Comment on above: Performed By: #### P T #### [facility] [address] [place] [address] eGFR OTHER > 90.0 Normal >60 [facility] [address] [place] [address] GFR/1.73 sq M.predicted among blacks MDRD (S/P/Bld) [Vol rate/Area] mL/min/{1.73_m2} Normal >60 [facility] Comment on above: Performed By: #### P T #### [facility] [address] [place] [address] Potassium [Moles/Vol] 3.8 mmol/L Normal 3.5-5.1 [facility] Comment on above: Performed By: #### P T #### [facility] [address] [place] [address] Chloride [Moles/Vol] 106 mmol/L Normal 98-107 [facility] Comment on above: Performed By: #### P T #### [facility] [address] [place] [address] Sodium [Moles/Vol] 139 mmol/L Normal 135-145 [facility] Comment on above: Performed By: #### P T #### [facility] [address] [place] [address] Anion gap [Moles/Vol] 7 mmol/L 3 - 13 mmol/L [facility] Calcium [Mass/Vol] 8.9 mg/dL 8.4 - 10. 4 mg/dL [facility] Chloride [Moles/Vol] 106 mmol/L 98 - 10 7 mmol/L [facility] CO2 [Moles/Vol] 26 mmol/L 22 - 30 mmol/L [facility] Creatinine [Mass/Vol] 0.71 mg/dL 0.52 - 1.25 mg/dL [facility] EGFR IF NonAfrican Croatian >90.0 >60 mL/min [facility] Comment on above: KDIGO guidelines [...] - 10.7 10*3/uL [facility] Test Performed by [facility], [address] [place], [place] [address] [place] [address] [facility] [address] Abdomen Pelvis Wo Contras ton 10-22-2021 Patient Name: ANDREW SIFUENTES Computed Tomography ACCESSION EXAM DATE/TIME PROCEDURE ORDERING PROVIDER [id number] 10/22/2021 13:[address] Abdomen/Pelvis (No SRIVASTAVA, WING PO, No IV) CPT code 41393 Reason For Exam (CT Abdomen/Pelvis (No PO, [...] HARLAN Transcribed Date and Time: 10/22/2021 2:37 [facility] RAD Humphrey Meltno MD - 10/22/2021 Patient Name: ANDREW SIFUENTES Computed Tomography ACCESSION EXAM DATE/TIME PROCEDURE ORDERING PROVIDER [id number] 10/22/2021 13:[address] Abdomen/Pelvis (No SRIVASTAVA, WING PO, No IV) CPT code 07580 Reason For Exam (CT Abdomen/Pelvis (No PO, [...] Tomography ACCESSION EXAM DATE/TIME PROCEDURE ORDERING PROVIDER [id number] 10/22/2021 13:[address] Abdomen/Pelvis (No SRIVASTAVA, WING PO, No IV) CPT code 22870 Reason For Exam (CT Abdomen/Pelvis (No PO, [...] Institute [address] [place] [address] Abs Neutrophile Cnt 6.0 10*3/uL Normal 1.8-7.0 [facility] Comment on above: Performed By: #### P T #### [facility] [address] [place] [address] Basophils/100 WBC (Bld) 1.0 % Normal 0.0-2.0 [facility] Comment on above: Performed By: #### P T #### [facility] [address] [place] [address] Eosinophils (Bld) [#/Vol] 0.3 10*3/uL Normal 0.0-0.5 [facility] Comment on above: Performed By: #### P T #### [facility] [address] [place] [address] Eosinophils/100 WBC (Bld) 3.0 % Normal 1.0-6.0 [facility] Comment on above: Performed By: #### P T #### [facility] [address] [place] [address] Erythrocyte distribution width (RBC) [Ratio] 17.1 % High 11.5-14.5 [facility] Comment on above: Performed By: #### P T #### [facility] [address] [place] [address] Granulocytes/100 WBC (Bld) 64.1 % Normal 40.0-80.0 [facility] Comment on above: Performed By: #### P T #### [facility] [address] [place] [address] Hematocrit (Bld) [Volume fraction] 33.4 % Low 40.0-52.0 [facility] Comment on above: Performed By: #### P T #### [facility] [address] [place] [address] Hemoglobin (Bld) [Mass/Vol] 10.9 g/dL Low 13.0-18.0 [facility] Comment on above: Performed By: #### P T #### [facility] [address] [place] [address] Lymphocytes (Bld) [#/Vol] 2.5 10*3/uL Normal 1.0-4.3 [facility] Comment on above: Performed By: #### P T #### [facility] [address] [place] [address] Lymphocytes/100 WBC (Bld) 26.3 % Normal 20.0-40.0 [facility] Comment on above: Performed By: #### P T #### [facility] [address] [place] [address] MCH (RBC) [Entitic mass] 28.2 pg Normal 26.0-34.0 [facility] Comment on above: Performed By: #### P T #### [place] [address] [place] [address] MCHC 32.7 % Normal 32.0-36.0 [facility] Comment on above: Performed By: #### P T #### [facility] [address] [place] [address] MCV (RBC) [Entitic vol] 86.3 fL Normal 80.0-98.0 [facility] Comment on above: Performed By: #### P T #### [place] [address] [place] [address] Monocytes (Bld) [#/Vol] 0.5 10*3/uL Normal 0.0-0.8 [facility] Comment on above: Performed By: #### P T #### [facility] [address] [place] [address] Monocytes/100 WBC (Bld) 5.6 % Normal 2.0-10.0 [facility] Comment on above: Performed By: #### P T #### [facility] [address] [place] [address] Platelet mean volume (Bld) [Entitic vol] 7.6 fL Normal 7.4-12.4 [facility] Comment on above: Result Comment: MPV is a calculated measurement using platelet volume ratio. Performed By: #### P T #### [place] [address] [place] [address] Platelets (Bld) [#/Vol] 369 10*3/uL Normal 140-440 [facility] Comment on above: Performed By: #### P T #### [facility] [address] [place] [address] RBC (Bld) [#/Vol] 3.87 10*6/uL Low 4.40-5.90 [facility] Comment on above: Performed By: #### P T #### [facility] [address] [place] [address] WBC (Bld) [#/Vol] 9.4 10*3/uL Normal 3.6-10.7 [facility] Comment on above: Performed By: #### P T #### [facility] [address] [place] [address] Magnesiumon 10-22-2021 Magnesium [Mass/Vol] 2.0 mg/dL Normal 1.6-2.3 [facility] Comment on above: Performed By: #### P T #### [facility] [address] [place] [address] Magnesium [Mass/Vol] 2.0 mg/dL 1.6 - 2 .3 mg/dL [facility] No Panel Informationon 10-22 Radiology Study observation (narrative) [facility] Work Phone: Test Performed by [facility], [address] [place], [place] [address] [facility] Prothrombin Timeon 2 INR 1.1 [...] [facility] [address] [place] [address] #### B2GPM, B2GPA, B2GPG #### [facility] [address] [place] [address] PT Coag (PPP) [Time] 11.8 s Normal 9.0-12.0 [facility] Comment on above: Result Comment: . Performed By: #### C A19O, LUPUS #### The performing lab is in the report. #### NSEO #### [facility] #### HEMDF, LDH3, BMP3, MG3, PT, CEA2 #### [facility] [address] [place] [address] #### B2GPM, B2GPA, B2GPG #### [address] [address] Protime-INRon 10-22-2021 INR Coag (Bld) [Relative time] 1.1 {INR} [facility] Work Phone: Comment on [...] [Time] 11.8 s 9.0 - 12.0 s [facility] Work Phone: Comment on above: . Test Performed by [facility], [address], [place], [place] [address] [facility] Work Phone: VL Ankle Art Brachial Indice s Extremity Bilateralon 10-22-2021 [facility] Ankle Brachial Index Report Patient RADHA Sifuentes: 1950 Study 10/21/2021 Name: Andrew Gonzalez (71yrs) Date: Age: 71 Account: [id number] Gender: M Loc: 444W BP: Ordering Physician: Shruthi Malik Plate And Weld Inspector: Rody Cross RDMS, RVT Interpreting Physician: Carina Call Location: [facility] Indications: Foot wounds. Originally ordered as a full PVR. Ordering HOME SUPERVISOR had to modify the order to [...] supine position. Images were obtained using a [employer] vascular ultrasound machine. Arterial pressure indices: + [...] by Carina Call 10/22/2021 13:21 [facility] Carina Call MD - 10/22/2021 [facility] Ankle Brachial Index Report Patient GurpreetRADHA: 1950 Study 10/21/2021 Name: Andrew R (71yrs) Date: Age: 71 Account: [id number] Gender: M Loc: 444W BP: Ordering Physician: Shruthi Malik Plate And Weld Inspector: Rody Cross RDMS RVT Interpreting Physician: Carina Call Location: [facility] Indications: Foot wounds. Originally ordered as a full PVR. Ordering HOME SUPERVISOR had to modify the order to [...] supine position. Images were obtained using a [employer] vascular ultrasound machine. Arterial pressure indices: + [...] electronically signed by Carina Call 10/22/2021 13:21 [facility]: [facility] Work Phone: Basic Metabolic Panelon 10-05 Calcium [Mass/Vol] 9.1 mg/dL Normal 8.4-10.4 [facility] Comment on above: Performed By: #### C OVAG #### [facility] [address] [place] [address] Anion gap [Moles/Vol] 6 mmol/L Normal 3-13 [facility] Comment on above: Performed By: #### C OVAG #### [facility] [employer] [address] [place] [address] CO2 [Moles/Vol] 29 mmol/L Normal 22-30 [facility] Comment on above: Performed By: #### C OVAG #### [facility] [employer] [address] [place] [address] Creatinine [Mass/Vol] 0.90 mg/dL Normal 0.52-1.25 [facility] Comment on above: Performed By: #### C OVAG #### [facility] [address] [place] [address] GFR/1.73 sq M.predicted among blacks MDRD (S/P/Bld) [Vol rate/Area] mL/min/{1.73_m2} Normal >60 [facility] Comment on above: Performed By: #### C OVAG #### [facility] [address] [place] [address] GFR/1.73 sq M.predicted among non-blacks MDRD (S/P/Bld) [...] [facility] [address] [place] [address] Glucose [Mass/Vol] 106 mg/dL High 70-100 [facility] Comment on above: Performed By: #### C OVAG #### [facility] [address] [place] [address] Urea nitrogen [Mass/Vol] 18 mg/dL High 7-17 [facility] Comment on above: Performed By: #### C OVAG #### [facility] [address] [place] [address] Chloride [Moles/Vol] 105 mmol/L Normal 98-107 [facility] Comment on above: Performed By: #### C OVAG #### [facility] [address] [place] [address] Potassium [Moles/Vol] 4.3 mmol/L Normal 3.5-5.1 [facility] Comment on above: Performed By: #### C OVAG #### [facility] [address] [place] [address] Sodium [Moles/Vol] 139 mmol/L Normal 135-145 [facility] Comment on above: Performed By: #### C OVAG #### [facility] [address] [place] [address] Anion gap [Moles/Vol] 6 mmol/L 3 - 13 mmol/L [facility] Calcium [Mass/Vol] 9.1 mg/dL 8.4 - 10. 4 mg/dL [facility] Chloride [Moles/Vol] 105 mmol/L 98 - 10 7 mmol/L [facility] CO2 [Moles/Vol] 29 mmol/L 22 - 30 mmol/L [facility] Creatinine [Mass/Vol] 0.9 mg/dL 0.52 - 1.25 mg/dL [facility] EGFR IF NonAfrican Croatian 86.6 mL/min >60 [facility] Comment on above: KDIGO guidelines [...] - 17 mg/dL [facility] Test Performed by [facility], [address] LAB [facility] C-Reactive Proteinon 022 CRP [Mass/Vol] 33.5 mg/L High 0.0-9.9 [facility] Comment on above: Result Comment: . Performed By: #### P T #### [facility] [address] [place] [address] CRP [Mass/Vol] 33.5 mg/L High 0.0 - 9.9 mg/L [facility] Comment on above: . Interpretation and review of laboratory results Abnormal [facility] Test Performed by [facility], [address] LAB [facility] CR Calcaneus 2+ Views Lefton 10-21-2021 CR Calcaneus 2+ Views Left [id number] Radiology ACCESSION EXAM DATE/TIME PROCEDURE ORDERING PROVIDER [id number] 10/21/2021 15:30 EDT CR Calcaneus 2+ Views [id number] -SHRUTHI MALIK Left CPT code 97271 Reason For Exam (CR Calcaneus 2+ Views [...] Radiology ACCESSION EXAM DATE/TIME PROCEDURE ORDERING PROVIDER [id number] 10/21/2021 08:16 EDT CR Chest 1 View Frontal [id number] MAY BOGGS CPT code 19598 Reason For Exam (CR Chest 1 View [...] [facility] [address] [place] [address] D-Dimer, Quantitativeon 10-05 D-Dimer, Quant 1.51 mg/L High <0.19 - 0.50 [facility] Comment on above: [employer] D-Dimer va lues of <0.50 mg/L FEU can be used in combination with a pre-test probability model (e.g. Well's) to exclude pulmonary embolism (PE) disease, as well as an aid in the diagnosis of deep vein thrombosis (DVT). Interpretation and review of laboratory results Abnormal [facility] Test Performed by [facility], [address], [place], [place] [address] [facility] ED Provider Noteon ED Provider Note [facility] ED EMERGENCY DEPARTMENT ENCOUNTER Pt [...] (HCC) ? Kidney stone ? Neuropathy ? DIRECT ENTRY MIDWIFE (ventriculoperitoneal) shunt status SURGICAL HISTORY Past Surgical [...] LUNGS: Respirations (more content not included)... Normal [email or web address] [facility] Hemogramon 10-21-2021 Erythrocyte distribution width (RBC) [Ratio] 17.3 % High 11.5-14.5 [facility] Comment on above: Performed By: #### C OVAG #### [facility] [address] [place] [address] Hematocrit (Bld) [Volume fraction] 33.6 % Low 40.0-52.0 [facility] Comment on above: Performed By: #### C OVAG #### [facility] [address] [place] [address] Hemoglobin (Bld) [Mass/Vol] 10.9 g/dL Low 13.0-18.0 [facility] Comment on above: Performed By: #### C OVAG #### [facility] [address] [place] [address] MCH (RBC) [Entitic mass] 27.8 pg Normal 26.0-34.0 [facility] Comment on above: Performed By: #### C OVAG #### [facility] [address] [place] [address] MCHC 32.5 % Normal 32.0-36.0 [facility] Comment on above: Performed By: #### C OVAG #### [facility] [address] [place] [address] MCV (RBC) [Entitic vol] 85.6 fL Normal 80.0-98.0 [facility] Comment on above: Performed By: #### C OVAG #### [facility] [address] [place] [address] Platelet mean volume (Bld) [Entitic vol] 7.7 fL Normal 7.4-12.4 [facility] Comment on above: Result Comment: MPV is a calculated measurement using platelet volume ratio. Performed By: #### C OVAG #### [facility] [address] [place] [address] Platelets (Bld) [#/Vol] 404 10*3/uL Normal 140-440 [facility] Comment on above: Performed By: #### C OVAG #### [facility] [address] [place] [address] RBC (Bld) [#/Vol] 3.93 10*6/uL Low 4.40-5.90 [facility] Comment on above: Performed By: #### C OVAG #### [facility] [address] [place] [address] WBC (Bld) [#/Vol] 11.6 10*3/uL High 3.6-10.7 [facility] Comment on above: Performed By: #### C OVAG #### [facility] [address] [place] [address] Hemogram (CBC)on 10-21-2021 Hematocrit (Bld) [Volume fraction] 33.6 % Low 40.0 - 52.0 % [facility] Hemoglobin (Bld) [Mass/Vol] 10.9 g/dL Low 13.0 - 18.0 g/dL [facility] Interpretation and review of laboratory [...] - 10.7 10*3/uL [facility] Test Performed by [facility], [address] [place], [place], [place] [address] [facility] NM LUNG VENT/PERFUSION (VQ)o n 10-21-2021 Patient Name: ANDREW SIFUENTES Nuclear Medicine ACCESSION EXAM DATE/TIME PROCEDURE ORDERING PROVIDER [id number] 10/21/2021 07:55 EDT NM Pulmonary Perfusion [id number] MAY BOGGS w/ Vent Aerosol CPT code 69026 A9567 Reason For Exam (NM Pulmonary Perfusion [...] Medicine ACCESSION EXAM DATE/TIME PROCEDURE ORDERING PROVIDER [id number] 10/21/2021 07:55 EDT NM Pulmonary Perfusion [id number] MAY BOGGS w/ Vent Aerosol CPT code 76149 A9567 Reason For Exam (NM Pulmonary Perfusion [...] JOHN Transcribed Date and Time: 10/21/2021 8:49 [facility] Work Phone: NM LUNG VENT/PERFUSION (VQ)O rdered By: Henry Harvey on 10-21-2021 [facility] Work Phone: NM Pulmonary Perfusion w/ Ve nt Aerosol or Gason 10-21-2021 NM Pulmonary Perfusion w/ Vent Aerosol or Gas Patient Name: ANDREW SIFUENTES Nuclear Medicine ACCESSION EXAM DATE/TIME PROCEDURE ORDERING PROVIDER [id number] 10/21/2021 07:55 EDT NM Pulmonary Perfusion [id number] -MAY CASH w/ Vent Aerosol CPT code 36164 A9567 Reason For Exam (NM Pulmonary Perfusion [...] Panel Informationon 10-21 Radiology Study observation (narrative) [facility] Work Phone: Prothrombin Timeon 2 [...] [facility] [address] [place] [address] PT Coag (PPP) [Time] 11.5 s Normal 9.0-12.0 [facility] Comment on above: Result Comment: . Performed By: #### C OVAG #### [facility] [address] [place] [address] Protime-INRon 10-21-2021 INR Coag (Bld) [Relative time] 1.1 {INR} [facility] Comment on above: Recommended Anticoag [...] Comment on above: . Test Performed by [facility], [address] LAB [facility] Retic Count(%)on 10-21-2021 Retic Count(%) 1.6 Normal [facility] Comment on above: Result Comment: Newb orn < 5% Adults 0.5 - 1.5% Performed By: #### P T #### [facility] [address] [place] [address] Reticulocyteson 10-21-[address] Pct 1.6 [facility] Comment on above: < 5% Adults 0.5 - 1.5% Test Performed by [facility], [address] [place], [place] [id number] [place] [address] LAB [facility] Sed Rateon 10-21-2021 Sed Rate 63 mm/h High 0-10 [facility] Comment on above: Performed By: #### P T #### [facility] [address] [place] [address] Sedimentation Rateon 022 Interpretation and review of laboratory results Abnormal [facility] Sed Rate 63 mm/h High 0 - 10 mm/h [facility] Test Performed by [facility], [address], [place], [place] [address] [facility] VL CARMELLA Upr/L Extremity Art 1 -2 Levelson 10-21-2021 VL CARMELLA Upr/L Extremity Art 1-2 Levels Patient Name: ANDREW SIFUENTES Ultrasound ACCESSION EXAM DATE/TIME PROCEDURE ORDERING PROVIDER [id number] 10/21/2021 16:12 EDT VL Upr/L Extremity Art 307540 -SHRUTHI MALIK 1-2 Levels CPT code 24151 Reason For Exam (VL Upr/L Extremity Art 1-2 Levels) both lower legs CARMELLA for both feet wounds. Report [facility] Ankle Brachial Index Report Patient RADHA Sifuentes: 1950 Study 10/21/2021 Name: Andrew Gonzalez (71yrs) Date: Age: 71 Account: [id number] Gender: M Loc: 444W BP: Ordering Physician: Shruthi Malik Plate And Weld Inspector: Rody Cross RDMS, RVT Interpreting Physician: Carina Call Location: [facility] Indications: Foot wounds. Originally ordered as a full PVR. Ordering HOME SUPERVISOR had to modify the order to [...] supine position. Images were obtained using a [employer] vascular ultrasound machine. Arterial pressure indices: + [...] CARINA HENNESSY Cardiovascular ACCESSION EXAM DATE/TIME PROCEDURE [id number] 10/21/2021 16:12 EDT VL Upr/L Extremity Art 1-2 Levels CPT code 30834 Reason For Exam (VL Upr/L Extremity Art 1-2 Levels) both lower legs CARMELLA for both feet wounds. Report [facility] Ankle Brachial Index Report Patient DO GurpreetB: 1950 Study 10/21/2021 Name: Andrew Gonzalez (71yr) Date: Age: 71 Account: [id number] Cardiovascular Report Gender: M Loc: 444W BP: Ordering Physician: Shruthi Malik Plate And Weld Inspector: Rody Cross RDMS, RVT Interpreting Physician: Carina Call Location: [facility] Indications: Foot wounds. Originally ordered as a full PVR. Ordering HOME SUPERVISOR had to modify the order to [...] VL LOWER EXTREMITY BILATERAL VENOUS DUPLEXon 10-21-2021 [facility] Lower Extremity Venous Duplex Report Patient DO GurpreetB: 1950 Study 10/21/2021 Name: Andrew Gonzalez (71yrs) Date: Age: 71 Account: [id number] Gender: M Loc: 444 BP: Ordering Physician: May Cash Plate And Weld Inspector: Rody Cross RDMS, RVT Interpreting Physician: Carina Call Location: [facility] Indications: Bilateral lower leg edema. [...] supine position. Images were obtained using a [employer] vascular ultrasound machine. Venous flow and imaging: [...] +-------- --------+ + (more content not included)... [facility] Carina Call MD - 10/21/2021 [facility] Lower Extremity Venous Duplex Report Patient DO GurpreetB: 1950 Study 10/21/2021 Name: Andrew Gonzalez (71yrs) Date: Age: 71 Account: [id number] Gender: M Loc: 444 BP: Ordering Physician: May Cash Plate And Weld Inspector: Rody Cross RDMS, RVT Interpreting Physician: Carina Call Location: [facility] Indications: Bilateral lower leg edema. [...] supine position. Images were obtained using a [employer] vascular ultrasound machine. Venous flow and imaging: [...] + + +----- (more content not included)... [employer] Work Phone: VL LOWER EXTREMITY BILATERAL VENOUS DUPLEXOrdered By: Carina Call on 10-21-2021 [employer] Work Phone: VL Venous Duplex US Lower Ex t Bilateralon 10-21-2021 VL Venous Duplex US Lower Ext Bilateral Patient Name: ANDREW SIFUENTES Ultrasound ACCESSION EXAM DATE/TIME PROCEDURE ORDERING PROVIDER [id number] 10/21/2021 09:53 EDT VL Venous Duplex [place] [id number] -MAY CASH Lower Ext Bilateral CPT code 63245 Reason For Exam (VL Venous Duplex US Lower Ext Bilateral) bilateral sqwelling redness Report [facility] Lower Extremity Venous Duplex Report Luís Sifuentes DOB: 1950 Study 10/21/2021 Name: Andrew Gonzalez (71yr) Date: Age: 71 Account: [id number] Gender: M Loc: 444 BP: Ordering Physician: May Cash Plate And Weld Inspector: Rody Cross RDMS, T Interpreting Physician: Carina Call Location: [facility] Indications: Bilateral lower leg edema. [...] supine position. Images were obtained using a [employer] vascular ultrasound machine. Venous flow and imaging: [...] + + (more content not included)... Normal [facility] XR CALCANEUS LEFT (MIN 2 VIE WS)on 10-21-2021 [facility]: [id number] Radiology ACCESSION EXAM DATE/TIME PROCEDURE ORDERING PROVIDER [id number] 10/21/2021 15:30 EDT CR Calcaneus 2+ Views [id number] -SHRUTHI MALIK Left CPT code 27086 Reason For Exam (CR Calcaneus 2+ Views [...] 10/21/2021 Patient Name: [id number] Diagnostic Radiology ACCESSION EXAM DATE/TIME PROCEDURE ORDERING PROVIDER [id number] 10/21/2021 15:30 EDT CR Calcaneus 2+ Views [id number] -SHRUTHI MALIK Left CPT code 08145 Reason For Exam (CR Calcaneus 2+ Views [...] J Transcribed Date and Time: 10/21/2021 4:33 [facility] Work Phone: XR CALCANEUS LEFT (MIN 2 VIE WS)Ordered By: Alan Wong on 10-21-2021 [facility] Work Phone: XR Chest 1 VWon 10-21-2021 Patient Name: ANDREW SIFUENTES Diagnostic Radiology ACCESSION EXAM DATE/TIME PROCEDURE ORDERING PROVIDER [id number] 10/21/2021 08:16 EDT CR Chest 1 View Frontal [id number] FOSTER CPT code 34016 Reason For Exam (CR Chest 1 View [...] OSAMA Transcribed Date and Time: 10/21/2021 8:33 [facility] Venus Loyd MD - 10/21/2021 Patient Name: ANDREW SIFUENTES Diagnostic Radiology ACCESSION EXAM DATE/TIME PROCEDURE ORDERING PROVIDER [id number] 10/21/2021 08:16 EDT CR Chest 1 View Frontal [id number] CONTI CPT code 62138 Reason For Exam (CR Chest 1 View [...] RAMOS Transcribed Date and Time: 10/21/2021 8:33 [facility] Work Phone: XR Chest 1 VWOrdered By: Natalie Loyd on 10-21-2021 [facility] Work Phone: Basophil percentageon 2021 Chloride [Moles/Vol] 108 mmol/L 98-[address] [facility] Work Phone: [phone] Glucose [Mass/Vol] 93 mg/dL 74-106 [facility] Work Phone: Potassium [Moles/Vol] 3.9 mmol/L 3.5-5.1 [facility] Work Phone: Sodium [Moles/Vol] 140 mmol/L 136-145 [facility] Work Phone: WBC (Bld) [#/Vol] 8.7 10*3/uL 4.4-11.0 [facility] Work Phone: Blood erythrocytes count (nu mber/volume)on 10-20-2021 RBC (Bld) [#/Vol] 3.63 10*6/uL 4.6-6.2 [facility] Work Phone: Blood hemoglobin measurement (mass/volume)on 10-20-2021 Hemoglobin (Bld) [Mass/Vol] 10.1 g/dL 13.0-16.5 [facility] Work Phone: Blood platelet mean volumeon 10-20-2021 Platelet mean volume (Bld) [Entitic vol] 9.8 fL 6.2-12.0 [facility] Work Phone: Determination of erythrocyte mean corpuscular volume (MCV)on 10-20-2021 MCV (RBC) [Entitic vol] 90.1 fL 80-94 [facility] Work Phone: Hematocrit Auto (Bld) [Volum e fraction]on 10-20-2021 Hematocrit (Bld) [Volume fraction] 32.7 % 40-54 [facility] Work Phone: Laboratory - Chemistry and C hemistry - challengeon 10-20-2021 CO2 [Moles/Vol] 25.0 mmol/L 21.0-32.0 [facility] Work Phone: Urea nitrogen/Creatinine [Mass ratio] 17.4 mg/mg 10-20 [facility] Work Phone: Laboratory - Hematology and Cell countson 10-20-2021 Erythrocyte distribution width (RBC) [Entitic vol] 52.1 fL 35.1-43.9 [facility] Work Phone: Erythrocyte distribution width (RBC) [Ratio] 15.6 % 11.6-14.6 [facility] Work Phone: MCH (RBC) [Entitic mass] 27.8 pg 27.0-32.0 [facility] Work Phone: MCHC Auto (RBC) [Mass/Vol]on 10-20-2021 MCHC (RBC) [Mass/Vol] 30.9 g/dL 32-36 [facility] Work Phone: No Panel Informationon 10-20 Estimated GFR (MDRD) Amer 133 mL/min >60 [facility] Work Phone: Comment on above: GFR Calc Estimated GFR (MDRD) Non-Af Amer 110 mL/min >60 [facility] Work Phone: Comment on above: Non- GFR Calc Platelets bldon 10-20-2021 Platelets (Bld) [#/Vol] 404 10*3/uL 150-450 [facility] Work Phone: Serum or plasma calcium oral urement (mass/volume)on 10-20-2021 Calcium [Mass/Vol] 9.1 mg/dL 8.5-10.1 [facility] Work Phone: Serum [...] Urea nitrogen [Mass/Vol] 13 mg/dL 7-18 [facility] Work Phone: Thin prep Papanicolaou smear with manual screeningon 10-20-2021 Thin prep Papanicolaou smear with manual screening 7 5-15 [facility] Work Phone: CNPNon 10-17-2021 CNPN Normal [facility] Absolute lymphocyte counton 09-19-2021 Lymphocytes Auto (Unsp spec) [#/Vol] 1.74 10*3/uL 0.83-4.51 [facility] Work Phone: Basophil percentageon 2021 Basophils/100 WBC (Bld) 0.6 % 0-1 [facility] Work Phone: Bilirubin [Mass/Vol] 0.30 mg/dL 0.20-1.[address] [facility] Work Phone: Comment on above: For patients on eltr ombopag therapy, use of Dimension Spreckels TBIL is not recommended. Chloride [Moles/Vol] 105 mmol/L 98-[address] [facility] Work Phone: Eosinophils/100 WBC (Bld) 3.5 % 0-5 [facility] Work Phone: Glucose [Mass/Vol] 91 mg/dL 74-106 [facility] Work Phone: Neutrophils (Bld) [#/Vol] 4.2 10*3/uL 2.0-7.7 [facility] Work Phone: Neutrophils/100 WBC (Bld) 62.6 % 47-70 [facility] Work Phone: Potassium [Moles/Vol] 3.8 mmol/L 3.5-5.1 [facility] Work Phone: Protein [Mass/Vol] 6.3 g/dL 6.4-8.2 [facility] Work Phone: Sodium [Moles/Vol] 139 mmol/L 136-145 [facility] Work Phone: WBC (Bld) [#/Vol] 6.6 10*3/uL 4.4-11.0 [facility] Work Phone: Blood erythrocytes count (nu mber/volume)on 09-19-2021 RBC (Bld) [#/Vol] 3.47 10*6/uL 4.6-6.2 [facility] Work Phone: Blood hemoglobin measurement (mass/volume)on 09-19-2021 Hemoglobin (Bld) [Mass/Vol] 10.2 g/dL 13.0-16.5 [facility] Work Phone: Blood lymphocytes/100 leukoc yteson 09-19-2021 Lymphocytes/100 WBC (Bld) 26.2 % 19-41 [facility] Work Phone: Blood monocytes/100 leukocyt eson 09-19-2021 Monocytes/100 WBC (Bld) 6.5 % 0-10 [facility] Work Phone: Blood platelet mean volumeon 09-19-2021 Platelet mean volume (Bld) [Entitic vol] 9.6 fL 6.2-12.0 [facility] Work Phone: Determination of erythrocyte mean corpuscular volume (MCV)on 09-19-2021 MCV (RBC) [Entitic vol] 94.8 fL 80-94 [facility] Work Phone: Hematocrit Auto (Bld) [Volum e fraction]on 09-19-2021 Hematocrit (Bld) [Volume fraction] 32.9 % 40-54 [facility] Work Phone: Laboratory - Chemistry and C hemistry - challengeon 09-19-2021 ALP [Catalytic activity/Vol] 109 U/L 45-117 [facility] Work Phone: ALT [Catalytic activity/Vol] 23 U/L 16-61 [facility] Work Phone: CO2 [Moles/Vol] 26.0 mmol/L 21.0-32.0 [facility] Work Phone: Globulin (S) [Mass/Vol] 3.5 g/dL 2.2-4.2 [facility] Work Phone: Urea nitrogen/Creatinine [Mass ratio] 15.3 mg/mg 10-20 [facility] Work Phone: Laboratory - Hematology and Cell countson 09-19-2021 Erythrocyte distribution width (RBC) [Entitic vol] 59.4 fL 35.1-43.9 [facility] Work Phone: Erythrocyte distribution width (RBC) [Ratio] 17.1 % 11.6-14.6 [facility] Work Phone: Immature granulocytes/100 WBC (Bld) 0.600 % 0.0-0.9 [facility] Work Phone: Comment on above: IG% - Immature Granu locytes (promyelocytes, myelocytes and metamyelocytes) > 1% indicates that a LEFT SHIFT is Present. MCH (RBC) [Entitic mass] 29.4 pg 27.0-32.0 [facility] Work Phone: Nucleated RBC/100 WBC (Bld) [Ratio] 0 % 0-5 [facility] Work Phone: MCHC Auto (RBC) [Mass/Vol]on 09-19-2021 MCHC (RBC) [Mass/Vol] 31.0 g/dL 32-36 [facility] Work Phone: No Panel Informationon 09-19 Estimated GFR (MDRD) Amer 175 mL/min >60 [facility] Work Phone: Comment on above: GFR Calc Estimated GFR (MDRD) Non-Af Amer 145 mL/min >60 [facility] Work Phone: Comment on above: Non- GFR Calc Platelets bldon 09-19-2021 Platelets (Bld) [#/Vol] 342 10*3/uL 150-450 [facility] Work Phone: Serum or plasma albumin oral urement (mass/volume)on 09-19-2021 Albumin [Mass/Vol] 2.8 g/dL 3.2-5.0 [facility] Work Phone: Serum or plasma albumin/glob ulin mass ratioon 09-19-2021 Albumin/Globulin [Mass ratio] 0.8 {ratio} 0.9-2.4 [facility] Work Phone: Serum or plasma calcium oral urement (mass/volume)on 09-19-2021 Calcium [Mass/Vol] 9.0 mg/dL 8.5-10.1 [facility] Work Phone: Serum [...] Urea nitrogen [Mass/Vol] 9 mg/dL 7-18 [facility] Work Phone: Thin prep Papanicolaou smear with manual screeningon 09-19-2021 Thin prep Papanicolaou smear with manual screening 12 U/L 15-37 [facility] Work Phone: Thin prep Papanicolaou smear with manual screening 8 5-15 [facility] Work Phone: OPERATIVE NOon 08-22-2021 OPERATIVE NO Normal [facility] Basic metabolic 2000 panelon 08-19-2021 Anion gap [Moles/Vol] 10 mmol/L Normal 9-18 [facility] Comment on above: Order Comment: Speci men Type: BLOOD SPECIMENOrdering Facility: [facility] Address: [address] [place] [address] Performed By: #### 2 4321-2 ####[facility] LABORATORYCLIA [id number] [place] [address] [place] Calcium [Mass/Vol] 8.6 mg/dL Normal 8.5-10.2 [facility] Comment on above: Order Comment: Speci men Type: BLOOD SPECIMENOrdering Facility: [facility] Address: [address] [place] [address] Performed By: #### 2 4321-2 ####[facility] LABORATORYCLIA [id number] [address] [place] Chloride [Moles/Vol] 99 mmol/L Normal 97-105 [facility] Comment on above: Order Comment: Speci men Type: BLOOD SPECIMENOrdering Facility: [facility] Address: [address] [place] [address] Performed By: #### 2 4321-2 ####[facility] LABORATORYCLIA [id number] [address] [place] CO2 [Moles/Vol] 29 mmol/L Normal 22-30 [facility] Comment on above: Order Comment: Speci men Type: BLOOD SPECIMENOrdering Facility: [facility] Address: [address] [place] [address] Performed By: #### 2 4321-2 ####[facility] LABORATORYCLIA [id number] [place] [address] [place] Creatinine [Mass/Vol] 0.58 mg/dL Low 0.73-1.22 [facility] Comment on above: Order Comment: Speci men Type: BLOOD SPECIMENOrdering Facility: [facility] Address: [address] [place] [address] Performed By: #### 2 4321-2 ####[facility] LABORATORYCLIA [id number] [address] [place] ESTIMATED GLOMERULAR FILTRATION RATE 106 mL/min/1.73m??? Normal >=60 [facility] Comment on above: Order Comment: Shira feldman Type: BLOOD SPECIMENOrdering Facility: [facility] Address: [address] [place] [address] Result Comment: Luzmaria mated Glomerular Filtration Rate [...] #### 2 4321-2 ####[facility] LABORATORYCLIA [id number] [place] [address] [place] Glucose [Mass/Vol] 101 mg/dL High 74-99 [facility] Comment on above: Order Comment: Shira feldman Type: BLOOD SPECIMENOrdering Facility: [facility] Address: [address] [place] [address] Result Comment: The [place] [employer] (ADA) provides guidance for cutoff [...] Standards of Medical Care in Diabetes 2016, [place] [employer]. Diabetes Care. 2016.39(Suppl 1). Performed By: #### 2 4321-2 ####[facility] LABORATORYCLIA [id number] [place] [address] [place] Potassium [Moles/Vol] 3.5 mmol/L Low 3.7-5.1 [facility] Comment on above: Order Comment: Shira feldman Type: BLOOD SPECIMENOrdering Facility: [facility] Address: [address] [place] [address] Performed By: #### 2 4321-2 ####[facility] LABORATORYCLIA [id number] [address] [place] Sodium [Moles/Vol] 138 mmol/L Normal 136-144 [facility] Comment on above: Order Comment: Speci men Type: BLOOD SPECIMENOrdering Facility: [facility] Address: [address] [place] [address] Performed By: #### 2 4321-2 ####[facility] LABORATORYCLIA [id number] [place] [address] [place] Urea nitrogen [Mass/Vol] 11 mg/dL Normal 9-24 [facility] Comment on above: Order Comment: Speci men Type: BLOOD SPECIMENOrdering Facility: [facility] Address: [address] [place] [address] Performed By: #### 2 4321-2 ####[facility] LABORATORYCLIA [id number] [address] [place] CASE MANAGEMon 08-19-2021 CASE MANAGEM Normal [facility] CBC W Auto Differential pane l (Bld)on 08-19-2021 Basophils (Bld) [#/Vol] 0.03 10*3/uL Normal <0.11 [facility] Comment on above: Order Comment: Speci men Type: BLOOD SPECIMENOrdering Facility: [facility] Address: [address] [place] [address] Performed By: #### 5 7021-8 ####[facility] LABORATORYCLIA [id number] [address] [place] Basophils/100 WBC (Bld) 0.4 % Normal [facility] Comment on above: Order Comment: Speci men Type: BLOOD SPECIMENOrdering Facility: [facility] Address: [address] [place] [address] Performed By: #### 5 7021-8 ####[facility]ORATORYCLIA [id number] [address] Differential cell count method Nom (Bld) Auto Normal [facility] Comment on above: Order Comment: Speci men Type: BLOOD SPECIMENOrdering Facility: [facility] Address: [address] [place] [address] Performed By: #### 5 7021-8 ####[facility] LABORATORYCLIA [id number] [address] [place] Eosinophils (Bld) [#/Vol] 0.24 10*3/uL Normal <0.46 [facility] Comment on above: Order Comment: Speci men Type: BLOOD SPECIMENOrdering Facility: [facility] Address: [address] [place] [address] Performed By: #### 5 7021-8 ####[facility] LABORATORYCLIA [id number] [address] Eosinophils/100 WBC (Bld) 3.1 % Normal [facility] Comment on above: Order Comment: Speci men Type: BLOOD SPECIMENOrdering Facility: [facility] Address: [address] [place] [address] Performed By: #### 5 7021-8 ####[facility] LABORATORYCLIA [id number] [address] [place] Erythrocyte distribution width (RBC) [Ratio] 17.5 % High 11.5-15.0 [facility] Comment on above: Order Comment: Speci men Type: BLOOD SPECIMENOrdering Facility: [facility] Address: [address] [place] [address] Performed By: #### 5 7021-8 ####[facility] LABORATORYCLIA [id number] [address] Hematocrit (Bld) [Volume fraction] 30.2 % Low 39.0-51.0 [facility] Comment on above: Order Comment: Speci men Type: BLOOD SPECIMENOrdering Facility: [facility] Address: [address] [place] [address] Performed By: #### 5 7021-8 ####[facility] LABORATORYCLIA [id number] [address] [place] Hemoglobin (Bld) [Mass/Vol] 9.6 g/dL Low 13.0-17.0 [facility] Comment on above: Order Comment: Speci men Type: BLOOD SPECIMENOrdering Facility: [facility] Address: [address] [place] [address] Performed By: #### 5 7021-8 ####[facility] LABORATORYCLIA [id number] [address] IMMATURE GRAN % 0.4 % Normal [facility] Comment on above: Order Comment: Speci men Type: BLOOD SPECIMENOrdering Facility: [facility] Address: [address] [place] [address] Performed By: #### 5 7021-8 ####[facility]ORATORYCLIA [id number] [address] IMMATURE GRAN ABS 0.03 k/uL Normal <0.10 [facility] Comment on above: Order Comment: Speci men Type: BLOOD SPECIMENOrdering Facility: [facility] Address: [address] [place] [address] Performed By: #### 5 7021-8 ####[facility] LABORATORYCLIA [id number] [address] [place] Lymphocytes (Bld) [#/Vol] 1.71 10*3/uL Normal 1.00-4.00 [facility] Comment on above: Order Comment: Speci men Type: BLOOD SPECIMENOrdering Facility: [facility] Address: [address] [place] [address] Performed By: #### 5 7021-8 ####[facility]ORATORYCLIA [id number] [address] Lymphocytes/100 WBC (Bld) 22.2 % Normal [facility] Comment on above: Order Comment: Speci men Type: BLOOD SPECIMENOrdering Facility: [facility] Address: [address] [place] [address] Performed By: #### 5 7021-8 ####[facility]ORATORYCLIA [id number] [address] MCH (RBC) [Entitic mass] 29.4 pg Normal 26.0-34.0 [facility] Comment on above: Order Comment: Speci men Type: BLOOD SPECIMENOrdering Facility: [facility] Address: [address] [place] [address] Performed By: #### 5 7021-8 ####[facility]ORATORYCLIA [id number] [address] MCHC (RBC) [Mass/Vol] 31.8 g/dL Normal 30.5-36.0 [facility] Comment on above: Order Comment: Speci men Type: BLOOD SPECIMENOrdering Facility: [facility] Address: [address] [place] [address] Performed By: #### 5 7021-8 ####[facility]ORATORYCLIA [id number] [address] [place] [facility] MCV (RBC) [Entitic vol] 92.6 fL Normal 80.0-100.0 [facility] Comment on above: Order Comment: Speci men Type: BLOOD SPECIMENOrdering Facility: [facility] Address: [address] [place] [address] Performed By: #### 5 7021-8 ####[facility]ORATORYCLIA [id number] [address] Monocytes (Bld) [#/Vol] 0.50 10*3/uL Normal <0.87 [facility] Comment on above: Order Comment: Speci men Type: BLOOD SPECIMENOrdering Facility: [facility] Address: [address] [place] [address] Performed By: #### 5 7021-8 ####[facility] LABORATORYCLIA [id number] [address] Monocytes/100 WBC (Bld) 6.5 % Normal [facility] Comment on above: Order Comment: Speci men Type: BLOOD SPECIMENOrdering Facility: [facility] Address: [address] [place] [address] Performed By: #### 5 7021-8 ####[facility]ORATORYCLIA [id number] [address] [place] Neutrophils (Bld) [#/Vol] 5.20 10*3/uL Normal 1.45-7.50 [facility] Comment on above: Order Comment: Speci men Type: BLOOD SPECIMENOrdering Facility: [facility] Address: [address] [place] [address] Performed By: #### 5 7021-8 ####[facility]ORATORYCLIA [id number] [address] [place] Neutrophils/100 WBC (Bld) 67.4 % Normal [facility] Comment on above: Order Comment: Speci men Type: BLOOD SPECIMENOrdering Facility: [facility] Address: [address] [place] [address] Performed By: #### 5 7021-8 ####[facility]ORATORYCLIA [id number] [address] [place] Nucleated RBC (Bld) [#/Vol] 10*3/uL Normal <0.01 [facility] Comment on above: Order Comment: Speci men Type: BLOOD SPECIMENOrdering Facility: [facility] Address: [address] [place] [address] Performed By: #### 5 7021-8 ####[facility]ORATORYCLIA [id number] [address] [place] Nucleated RBC/100 WBC (Bld) [Ratio] 0.0 /100 WBC Normal [facility] Comment on above: Order Comment: Speci men Type: BLOOD SPECIMENOrdering Facility: [facility] Address: [address] [place] [address] Performed By: #### 5 7021-8 ####[facility]ORATORYCLIA [id number] [address] [place] Platelet mean volume (Bld) [Entitic vol] 8.9 fL Low 9.0-12.7 [facility] Comment on above: Order Comment: Speci men Type: BLOOD SPECIMENOrdering Facility: [facility] Address: [address] [place] [address] Performed By: #### 5 7021-8 ####[facility]ORATORYCLIA [id number] [address] [place] Platelets (Bld) [#/Vol] 408 10*3/uL High 150-400 [facility] Comment on above: Order Comment: Speci men Type: BLOOD SPECIMENOrdering Facility: [facility] Address: [address] [place] [address] Performed By: #### 5 7021-8 ####[facility]ORATORYCLIA [id number] [place] [address] [place] RBC (Bld) [#/Vol] 3.26 10*6/uL Low 4.20-6.00 [facility] Comment on above: Order Comment: Speci men Type: BLOOD SPECIMENOrdering Facility: [facility] Address: [address] [place] [address] Performed By: #### 5 7021-8 ####[facility]ORATORYCLIA [id number] [place] [address] [place] WBC (Bld) [#/Vol] 7.71 10*3/uL Normal 3.70-11.00 [facility] Comment on above: Order Comment: Speci men Type: BLOOD SPECIMENOrdering Facility: [facility] Address: [address] [place] [address] Performed By: #### 5 7021-8 ####[facility]ORATORYCLIA [id number] [address] [place] CNDSon 08-19-2021 CNDS Normal [facility] CONSULT PROGon 08-19-2021 CONSULT PROG Normal [facility] THERAPY NTon 08-19-2021 THERAPY NT Normal [facility] Basic metabolic 2000 panelon 08-18-2021 Anion gap [Moles/Vol] 11 mmol/L Normal 9-18 [facility] Comment on above: Order Comment: Speci men Type: BLOOD SPECIMENOrdering Facility: [facility] Address: [address] [place] [address] Performed By: #### 2 4321-2 ####[facility]ORATORYCLIA [id number] [place] [address] [place] Calcium [Mass/Vol] 8.6 mg/dL Normal 8.5-10.2 [facility] Comment on above: Order Comment: Speci men Type: BLOOD SPECIMENOrdering Facility: [facility] Address: [address] [place] [address] Performed By: #### 2 4321-2 ####[facility]ORATORYCLIA [id number] [place] [address] [place] Chloride [Moles/Vol] 98 mmol/L Normal 97-105 [facility] Comment on above: Order Comment: Speci men Type: BLOOD SPECIMENOrdering Facility: [facility] Address: [address] [place] [address] Performed By: #### 2 4321-2 ####[facility]ORATORYCLIA [id number] [place] [address] [place] CO2 [Moles/Vol] 28 mmol/L Normal 22-30 [facility] Comment on above: Order Comment: Speci men Type: BLOOD SPECIMENOrdering Facility: [facility] Address: [address] [place] [address] Performed By: #### 2 4321-2 ####[facility]ORATORYCLIA [id number] [place] [address] [place] Creatinine [Mass/Vol] 0.56 mg/dL Low 0.73-1.22 [facility] Comment on above: Order Comment: Speci men Type: BLOOD SPECIMENOrdering Facility: [facility] Address: [address] [address] Performed By: #### 2 4321-2 ####[facility]ITALCL[facility] [id number] [address] [place] ESTIMATED GLOMERULAR FILTRATION RATE 107 mL/min/1.73m??? Normal >=60 [facility] Comment on above: Order Comment: Shira feldman Type: BLOOD SPECIMENOrdering Facility: [facility] Address: [address] [address] Result Comment: Luzmaria mated Glomerular Filtration Rate [...] GFR. Performed By: #### 2 4321-2 ####[facility]PITALIA [id number] [place] [address] [place] Glucose [Mass/Vol] 113 mg/dL High 74-99 [facility] Comment on above: Order Comment: Shira feldman Type: BLOOD SPECIMENOrdering Facility: [facility] Address: [address] [address] Result Comment: The [place] [employer] (ADA) provides guidance for cutoff [...] Standards of Medical Care in Diabetes 2016, [place] [employer]. Diabetes Care. 2016.39(Suppl 1). Performed By: #### 2 4321-2 ####[facility]ORATORYCLIA [id number] [place] [id number] [place] Potassium [Moles/Vol] 3.5 mmol/L Low 3.7-5.1 [facility] Comment on above: Order Comment: Speci men Type: BLOOD SPECIMENOrdering Facility: [facility] Address: [address] [place] [address] Performed By: #### 2 4321-2 ####[facility]ORATORYCLIA [id number] [address] STATES [place] [facility] Sodium [Moles/Vol] 137 mmol/L Normal 136-144 [facility] Comment on above: Order Comment: Speci men Type: BLOOD SPECIMENOrdering Facility: [facility] Address: [address] [place] [address] Performed By: #### 2 4321-2 ####[facility]ORATORYCLIA [id number] [address] [place] [facility] Urea nitrogen [Mass/Vol] 10 mg/dL Normal 9-24 [facility] Comment on above: Order Comment: Speci men Type: BLOOD SPECIMENOrdering Facility: [facility] Address: [address] [place] [address] Performed By: #### 2 4321-2 ####[facility]ORATORYCLIA [id number] [address] [place] [facility] CBC W Auto Differential pane l (Bld)on 08-18-2021 Basophils (Bld) [#/Vol] 10*3/uL Normal <0.11 [facility] Comment on above: Order Comment: Speci men Type: BLOOD SPECIMENOrdering Facility: [facility] Address: [address] [place] [address] Performed By: #### 5 7021-8 ####[facility]ORATORYCLIA [id number] [address] STATES [facility] Basophils/100 WBC (Bld) 0.3 % Normal [facility] Comment on above: Order Comment: Speci men Type: BLOOD SPECIMENOrdering Facility: [facility] Address: [address] [place] [address] Performed By: #### 5 7021-8 ####[facility]ORATORYCLIA [id number] [address] Differential cell count method Nom (Bld) Auto Normal [facility] Comment on above: Order Comment: Speci men Type: BLOOD SPECIMENOrdering Facility: [facility] Address: [address] [place] [address] Performed By: #### 5 7021-8 ####[facility]ORATORYCLIA [id number] [address] Eosinophils (Bld) [#/Vol] 0.37 10*3/uL Normal <0.46 [facility] Comment on above: Order Comment: Speci men Type: BLOOD SPECIMENOrdering Facility: [facility] Address: [address] [place] [address] Performed By: #### 5 7021-8 ####[facility]ORATORYCLIA [id number] [address] Eosinophils/100 WBC (Bld) 4.8 % Normal [facility] Comment on above: Order Comment: Speci men Type: BLOOD SPECIMENOrdering Facility: [facility] Address: [address] [place] [address] Performed By: #### 5 7021-8 ####[facility]ORATORYCLIA [id number] [address] Erythrocyte distribution width (RBC) [Ratio] 17.5 % High 11.5-15.0 [facility] Comment on above: Order Comment: Speci men Type: BLOOD SPECIMENOrdering Facility: [facility] Address: [address] [place] [address] Performed By: #### 5 7021-8 ####[facility]ORATORYCLIA [id number] [address] Hematocrit (Bld) [Volume fraction] 30.2 % Low 39.0-51.0 [facility] Comment on above: Order Comment: Speci men Type: BLOOD SPECIMENOrdering Facility: [facility] Address: [address] [place] [address] Performed By: #### 5 7021-8 ####[facility]ORATORYCLIA [id number] [address] Hemoglobin (Bld) [Mass/Vol] 9.5 g/dL Low 13.0-17.0 [facility] Comment on above: Order Comment: Speci men Type: BLOOD SPECIMENOrdering Facility: [facility] Address: [address] [place] [address] Performed By: #### 5 7021-8 ####[facility]ORATORYCLIA [id number] [address] IMMATURE GRAN % 0.4 % Normal [facility] Comment on above: Order Comment: Speci men Type: BLOOD SPECIMENOrdering Facility: [facility] Address: [address] [place] [address] Performed By: #### 5 7021-8 ####[facility]ORATORYCLIA [id number] [address] IMMATURE GRAN ABS 0.03 k/uL Normal <0.10 [facility] Comment on above: Order Comment: Speci men Type: BLOOD SPECIMENOrdering Facility: [facility] Address: [address] [place] [address] Performed By: #### 5 7021-8 ####[facility]ORATORYCLIA [id number] [address] [place] Lymphocytes (Bld) [#/Vol] 1.85 10*3/uL Normal 1.00-4.00 [facility] Comment on above: Order Comment: Speci men Type: BLOOD SPECIMENOrdering Facility: [facility] Address: [address] [place] [address] Performed By: #### 5 7021-8 ####[facility]ORATORYCLIA [id number] [address] Lymphocytes/100 WBC (Bld) 23.8 % Normal [facility] Comment on above: Order Comment: Speci men Type: BLOOD SPECIMENOrdering Facility: [facility] Address: [address] [place] [address] Performed By: #### 5 7021-8 ####[facility]ORATORYCLIA [id number] [address] MCH (RBC) [Entitic mass] 29.5 pg Normal 26.0-34.0 [facility] Comment on above: Order Comment: Speci men Type: BLOOD SPECIMENOrdering Facility: [facility] Address: [address] [place] [address] Performed By: #### 5 7021-8 ####[facility]ORATORYCLIA [id number] [address] MCHC (RBC) [Mass/Vol] 31.5 g/dL Normal 30.5-36.0 [facility] Comment on above: Order Comment: Speci men Type: BLOOD SPECIMENOrdering Facility: [facility] Address: [address] [place] [address] Performed By: #### 5 7021-8 ####[facility]ORATORYCLIA [id number] [address] MCV (RBC) [Entitic vol] 93.8 fL Normal 80.0-100.0 [facility] Comment on above: Order Comment: Speci men Type: BLOOD SPECIMENOrdering Facility: [facility] Address: [address] [place] [address] Performed By: #### 5 7021-8 ####[facility]ORATORYCLIA [id number] [address] Monocytes (Bld) [#/Vol] 0.49 10*3/uL Normal <0.87 [facility] Comment on above: Order Comment: Speci men Type: BLOOD SPECIMENOrdering Facility: [facility] Address: [address] [place] [address] Performed By: #### 5 7021-8 ####[facility]ORATORYCLIA [id number] [place] [address] [place] Monocytes/100 WBC (Bld) 6.3 % Normal [facility] Comment on above: Order Comment: Speci men Type: BLOOD SPECIMENOrdering Facility: [facility] Address: [address] [place] [address] Performed By: #### 5 7021-8 ####[facility]ORATORYCLIA [id number] [place] [address] [place] Neutrophils (Bld) [#/Vol] 5.00 10*3/uL Normal 1.45-7.50 [facility] Comment on above: Order Comment: Speci men Type: BLOOD SPECIMENOrdering Facility: [facility] Address: [address] [place] [address] Performed By: #### 5 7021-8 ####[facility]ORATORYCLIA [id number] [address] [place] Neutrophils/100 WBC (Bld) 64.4 % Normal [facility] Comment on above: Order Comment: Speci men Type: BLOOD SPECIMENOrdering Facility: [facility] Address: [address] [place] [address] Performed By: #### 5 7021-8 ####[facility]ORATORYCLIA [id number] [place] [address] [place] Nucleated RBC (Bld) [#/Vol] 10*3/uL Normal <0.01 [facility] Comment on above: Order Comment: Speci men Type: BLOOD SPECIMENOrdering Facility: [facility] Address: [address] [place] [address] Performed By: #### 5 7021-8 ####[facility]ATORYCLIA [id number] [place] [address] [place] Nucleated RBC/100 WBC (Bld) [Ratio] 0.0 /100 WBC Normal [facility] Comment on above: Order Comment: Speci men Type: BLOOD SPECIMENOrdering Facility: [facility] Address: [address] [place] [address] Performed By: #### 5 7021-8 ####[facility]ORATORYCLIA [id number] [address] [place] Platelet mean volume (Bld) [Entitic vol] 9.1 fL Normal 9.0-12.7 [facility] Comment on above: Order Comment: Speci men Type: BLOOD SPECIMENOrdering Facility: [facility] Address: [address] [place] [address] Performed By: #### 5 7021-8 ####[facility]ORATORYCLIA [id number] [place] [address] [place] Platelets (Bld) [#/Vol] 391 10*3/uL Normal 150-400 [facility] Comment on above: Order Comment: Speci men Type: BLOOD SPECIMENOrdering Facility: [facility] Address: [address] [place] [address] Performed By: #### 5 7021-8 ####[facility]ORATORYCLIA [id number] [place] [address] [place] RBC (Bld) [#/Vol] 3.22 10*6/uL Low 4.20-6.00 [facility] Comment on above: Order Comment: Speci men Type: BLOOD SPECIMENOrdering Facility: [facility] Address: [address] [place] [address] Performed By: #### 5 7021-8 ####[facility]ATORYCLIA [id number] [address] [place] WBC (Bld) [#/Vol] 7.76 10*3/uL Normal 3.70-11.00 [facility] Comment on above: Order Comment: Speci men Type: BLOOD SPECIMENOrdering Facility: [facility] Address: [address] [place] [address] Performed By: #### 5 7021-8 ####[facility]ORATORYCLIA [id number] [address] OF [facility] CONSULT PROGon 08-18-2021 CONSULT PROG Normal [facility] CASE MANAGEMon 08-17-2021 CASE MANAGEM Normal [facility] CBC W Auto Differential pane l (Bld)on 08-17-2021 Basophils (Bld) [#/Vol] 0.04 10*3/uL Normal <0.11 [facility] Comment on above: Order Comment: Speci men Type: BLOOD SPECIMENOrdering Facility: [facility] Address: [address] [place] [address] Performed By: #### 5 7021-8 ####[facility]ATORYCLIA [id number] [address] [place] Basophils/100 WBC (Bld) 0.5 % Normal [facility] Comment on above: Order Comment: Speci men Type: BLOOD SPECIMENOrdering Facility: [facility] Address: [address] [place] [address] Performed By: #### 5 7021-8 ####[facility]ORATORYCLIA [id number] [address] [place] Differential cell count method Nom (Bld) Auto Normal [facility] Comment on above: Order Comment: Speci men Type: BLOOD SPECIMENOrdering Facility: [facility] Address: [address] [place] [address] Performed By: #### 5 7021-8 ####[facility]ORATORYCLIA [id number] [place] [address] [place] Eosinophils (Bld) [#/Vol] 0.31 10*3/uL Normal <0.46 [facility] Comment on above: Order Comment: Speci men Type: BLOOD SPECIMENOrdering Facility: [facility] Address: [address] [place] [address] Performed By: #### 5 7021-8 ####[facility]ATORYCLIA [id number] [address] [place] Eosinophils/100 WBC (Bld) 3.7 % Normal [facility] Comment on above: Order Comment: Speci men Type: BLOOD SPECIMENOrdering Facility: [facility] Address: [address] [place] [address] Performed By: #### 5 7021-8 ####[facility]ORATORYCLIA [id number] [address] Erythrocyte distribution width (RBC) [Ratio] 17.4 % High 11.5-15.0 [facility] Comment on above: Order Comment: Speci men Type: BLOOD SPECIMENOrdering Facility: [facility] Address: [address] [place] [address] Performed By: #### 5 7021-8 ####[facility]ORATORYCLIA [id number] [address] Hematocrit (Bld) [Volume fraction] 30.6 % Low 39.0-51.0 [facility] Comment on above: Order Comment: Speci men Type: BLOOD SPECIMENOrdering Facility: [facility] Address: [address] [place] [address] Performed By: #### 5 7021-8 ####[facility]ORATORYCLIA [id number] [address] [place] [facility] Hemoglobin (Bld) [Mass/Vol] 9.6 g/dL Low 13.0-17.0 [facility] Comment on above: Order Comment: Speci men Type: BLOOD SPECIMENOrdering Facility: [facility] Address: [address] [place] [address] Performed By: #### 5 7021-8 ####[facility]ATORYCLIA [id number] [address] IMMATURE GRAN % 0.2 % Normal [facility] Comment on above: Order Comment: Speci men Type: BLOOD SPECIMENOrdering Facility: [facility] Address: [address] [place] [address] Performed By: #### 5 7021-8 ####[facility]ORATORYCLIA [id number] [address] IMMATURE GRAN ABS <0.03 Normal <0.10 [facility] Comment on above: Order Comment: Speci men Type: BLOOD SPECIMENOrdering Facility: [facility] Address: [address] [place] [address] Performed By: #### 5 7021-8 ####[facility] LABORATORYCLIA [id number] [address] [place] Lymphocytes (Bld) [#/Vol] 1.66 10*3/uL Normal 1.00-4.00 [facility] Comment on above: Order Comment: Speci men Type: BLOOD SPECIMENOrdering Facility: [facility] Address: [address] [place] [address] Performed By: #### 5 7021-8 ####[facility] LABORATORYCLIA [id number] [address] Lymphocytes/100 WBC (Bld) 19.9 % Normal [facility] Comment on above: Order Comment: Speci men Type: BLOOD SPECIMENOrdering Facility: [facility] Address: [address] [place] [address] Performed By: #### 5 7021-8 ####[facility] LABORATORYCLIA [id number] [address] [place] MCH (RBC) [Entitic mass] 28.9 pg Normal 26.0-34.0 [facility] Comment on above: Order Comment: Speci men Type: BLOOD SPECIMENOrdering Facility: [facility] Address: [address] [place] [address] Performed By: #### 5 7021-8 ####[facility]ORATORYCLIA [id number] [address] [place] MCHC (RBC) [Mass/Vol] 31.4 g/dL Normal 30.5-36.0 [facility] Comment on above: Order Comment: Speci men Type: BLOOD SPECIMENOrdering Facility: [facility] Address: [address] [place] [address] Performed By: #### 5 7021-8 ####[facility] LABORATORYCLIA [id number] [place] [address] [place] MCV (RBC) [Entitic vol] 92.2 fL Normal 80.0-100.0 [facility] Comment on above: Order Comment: Speci men Type: BLOOD SPECIMENOrdering Facility: [facility] Address: [address] [place] [address] Performed By: #### 5 7021-8 ####[facility]ORATORYCLIA [id number] [place] [address] [place] Monocytes (Bld) [#/Vol] 0.52 10*3/uL Normal <0.87 [facility] Comment on above: Order Comment: Speci men Type: BLOOD SPECIMENOrdering Facility: [facility] Address: [address] [place] [address] Performed By: #### 5 7021-8 ####[facility]ORATORYCLIA [id number] [address] [place] Monocytes/100 WBC (Bld) 6.2 % Normal [facility] Comment on above: Order Comment: Speci men Type: BLOOD SPECIMENOrdering Facility: [facility] Address: [address] [place] [address] Performed By: #### 5 7021-8 ####[facility]ORATORYCLIA [id number] [place] [address] [place] Neutrophils (Bld) [#/Vol] 5.78 10*3/uL Normal 1.45-7.50 [facility] Comment on above: Order Comment: Speci men Type: BLOOD SPECIMENOrdering Facility: [facility] Address: [address] [place] [address] Performed By: #### 5 7021-8 ####[facility]ORATORYCLIA [id number] [address] [place] Neutrophils/100 WBC (Bld) 69.5 % Normal [facility] Comment on above: Order Comment: Speci men Type: BLOOD SPECIMENOrdering Facility: [facility] Address: [address] [place], [place] [address] Performed By: #### 5 7021-8 ####[facility]ORATORYCLIA [id number] [address] Nucleated RBC (Bld) [#/Vol] 10*3/uL Normal <0.01 [facility] Comment on above: Order Comment: Speci men Type: BLOOD SPECIMENOrdering Facility: [facility] Address: [address] [place] [address] Performed By: #### 5 7021-8 ####[facility]ORATORYCLIA [id number] [address] OF [facility] Nucleated RBC/100 WBC (Bld) [Ratio] 0.0 /100 WBC Normal [facility] Comment on above: Order Comment: Speci men Type: BLOOD SPECIMENOrdering Facility: [facility] Address: [address] [place] [address] Performed By: #### 5 7021-8 ####[facility]ORATORYCLIA [id number] [address] Platelet mean volume (Bld) [Entitic vol] 9.2 fL Normal 9.0-12.7 [facility] Comment on above: Order Comment: Speci men Type: BLOOD SPECIMENOrdering Facility: [facility] Address: [address] [place] [address] Performed By: #### 5 7021-8 ####[facility]ORATORYCLIA [id number] [address] [place] Platelets (Bld) [#/Vol] 379 10*3/uL Normal 150-400 [facility] Comment on above: Order Comment: Speci men Type: BLOOD SPECIMENOrdering Facility: [facility] Address: [address] [place] [address] Performed By: #### 5 7021-8 ####[facility]ORATORYCLIA [id number] [address] [place] RBC (Bld) [#/Vol] 3.32 10*6/uL Low 4.20-6.00 [facility] Comment on above: Order Comment: Speci men Type: BLOOD SPECIMENOrdering Facility: [facility] Address: [address] [place] [address] Performed By: #### 5 7021-8 ####[facility]ORATORYCLIA [id number] [place] [address] [place] WBC (Bld) [#/Vol] 8.33 10*3/uL Normal 3.70-11.00 [facility] Comment on above: Order Comment: Speci men Type: BLOOD SPECIMENOrdering Facility: [facility] Address: [address] [place] [address] Performed By: #### 5 7021-8 ####[facility]ORATORYCLIA [id number] [address] [place] CONSULT PROGon 08-17-2021 CONSULT PROG Normal [facility] NUTRITIONon 08-17-2021 NUTRITION Normal [facility] Basic metabolic 2000 panelon 08-16-2021 Anion gap [Moles/Vol] 14 mmol/L Normal 9-18 [facility] Comment on above: Order Comment: Speci men Type: BLOOD SPECIMENOrdering Facility: [facility] Address: [address] [place] [address] Performed By: #### 2 4321-2, 36311-7 ####[facility]ORATORYCLIA [id number] [place] [address] [place] Calcium [Mass/Vol] 8.8 mg/dL Normal 8.5-10.2 [facility] Comment on above: Order Comment: Speci men Type: BLOOD SPECIMENOrdering Facility: [facility] Address: [address] [place] [address] Performed By: #### 2 4321-2, 78168-7 ####[facility]ORATORYCLIA [id number] [place] [address] [place] Chloride [Moles/Vol] 97 mmol/L Normal 97-105 [facility] Comment on above: Order Comment: Speci men Type: BLOOD SPECIMENOrdering Facility: [facility] Address: [address] [place] [address] Performed By: #### 2 432-2, ####[facility]ORATORYCLIA [id number] [address] [place] CO2 [Moles/Vol] 27 mmol/L Normal 22-30 [facility] Comment on above: Order Comment: Speci men Type: BLOOD SPECIMENOrdering Facility: [facility] Address: [address] [place] [address] Performed By: #### 2 4322, ####[facility]ORATORYCLIA [id number] [address] [place] [facility] Creatinine [Mass/Vol] 0.50 mg/dL Low 0.73-1.22 [facility] Comment on above: Order Comment: Speci men Type: BLOOD SPECIMENOrdering Facility: [facility] Address: [address] [place] [address] Performed By: #### 2 4320-06, ####[facility]ORATORYCLIA [id number] [address] ESTIMATED GLOMERULAR FILTRATION RATE 110 mL/min/1.73m??? Normal >=60 [facility] Comment on above: Order Comment: Speci men Type: BLOOD SPECIMENOrdering Facility: [facility] Address: [address] [place] [address] Result Comment: Luzmaria mated Glomerular Filtration Rate [...] actual GFR. Performed By: #### 2 4321-2, ####[facility]ORATORYCLIA [id number] [place] [id number] [place] Glucose [Mass/Vol] 101 mg/dL High 74-99 [facility] Comment on above: Order Comment: Speccara men Type: BLOOD SPECIMENOrdering Facility: [facility] Address: [address] [place] [address] Result Comment: The [place] [employer] (ADA) provides guidance for cutoff [...] Standards of Medical Care in Diabetes 2016, [place] [employer]. Diabetes Care. 2016.39(Suppl 1). Performed By: #### 2 4320-06, ####[facility]ORATORYCLIA [id number] [place] [address] [place] Potassium [Moles/Vol] 3.6 mmol/L Low 3.7-5.1 [facility] Comment on above: Order Comment: Shira feldman Type: BLOOD SPECIMENOrdering Facility: [facility] Address: [address] [place] [address] Performed By: #### 2 ####[facility]ORATORYCLIA [id number] [place] [address] [place] Sodium [Moles/Vol] 138 mmol/L Normal 136-144 [facility] Comment on above: Order Comment: Shira feldman Type: BLOOD SPECIMENOrdering Facility: [facility] Address: [address] [place] [address] Performed By: #### 2 4320-06, ####[facility]ORATORYCLIA [id number] [place] [address] [place] Urea nitrogen [Mass/Vol] 11 mg/dL Normal 9-24 [facility] Comment on above: Order Comment: Speci men Type: BLOOD SPECIMENOrdering Facility: [facility] Address: [address] [place] [address] Performed By: #### 2 4321-2, 04922-5 ####[facility]ORATORYCLIA [id number] [address] [place] CASE MANAGEMon 08-16-2021 CASE MANAGEM Normal [facility] CBC W Auto Differential pane l (Bld)on 08-16-2021 Basophils (Bld) [#/Vol] 0.03 10*3/uL Normal <0.11 [facility] Comment on above: Order Comment: Speci men Type: BLOOD SPECIMENOrdering Facility: [facility] Address: [address] [place] [address] Performed By: #### 5 7021-8 ####[facility]ORATORYCLIA [id number] [address] [place] Basophils/100 WBC (Bld) 0.4 % Normal [facility] Comment on above: Order Comment: Speci men Type: BLOOD SPECIMENOrdering Facility: [facility] Address: [address] [place] [address] Performed By: #### 5 7021-8 ####[facility]ORATORYCLIA [id number] [address] [place] Differential cell count method Nom (Bld) Auto Normal [facility] Comment on above: Order Comment: Speci men Type: BLOOD SPECIMENOrdering Facility: [facility] Address: [address] [place] [address] Performed By: #### 5 7021-8 ####[facility]ORATORYCLIA [id number] [place] [address] [place] Eosinophils (Bld) [#/Vol] 0.19 10*3/uL Normal <0.46 [facility] Comment on above: Order Comment: Speci men Type: BLOOD SPECIMENOrdering Facility: [facility] Address: [address] [place] [address] Performed By: #### 5 7021-8 ####[facility]ORATORYCLIA [id number] [address] [place] [facility] Eosinophils/100 WBC (Bld) 2.5 % Normal [facility] Comment on above: Order Comment: Speci men Type: BLOOD SPECIMENOrdering Facility: [facility] Address: [address] [place] [address] Performed By: #### 5 7021-8 ####[facility]ORATORYCLIA [id number] [address] Erythrocyte distribution width (RBC) [Ratio] 17.1 % High 11.5-15.0 [facility] Comment on above: Order Comment: Speci men Type: BLOOD SPECIMENOrdering Facility: [facility] Address: [address] [place] [address] Performed By: #### 5 7021-8 ####[facility]ORATORYCLIA [id number] [address] Hematocrit (Bld) [Volume fraction] 29.2 % Low 39.0-51.0 [facility] Comment on above: Order Comment: Speci men Type: BLOOD SPECIMENOrdering Facility: [facility] Address: [address] [place] [address] Performed By: #### 5 7021-8 ####[facility]ORATORYCLIA [id number] [address] [place] Hemoglobin (Bld) [Mass/Vol] 9.0 g/dL Low 13.0-17.0 [facility] Comment on above: Order Comment: Speci men Type: BLOOD SPECIMENOrdering Facility: [facility] Address: [address] [place] [address] Performed By: #### 5 7021-8 ####[facility]ORATORYCLIA [id number] [address] IMMATURE GRAN % 0.3 % Normal [facility] Comment on above: Order Comment: Speci men Type: BLOOD SPECIMENOrdering Facility: [facility] Address: [address] [place] [address] Performed By: #### 5 7021-8 ####[facility]ORATORYCLIA [id number] [address] IMMATURE GRAN ABS <0.03 Normal <0.10 [facility] Comment on above: Order Comment: Speci men Type: BLOOD SPECIMENOrdering Facility: [facility] Address: [address] [place] [address] Performed By: #### 5 7021-8 ####[facility]ORATORYCLIA [id number] [address] Lymphocytes (Bld) [#/Vol] 1.41 10*3/uL Normal 1.00-4.00 [facility] Comment on above: Order Comment: Speci men Type: BLOOD SPECIMENOrdering Facility: [facility] Address: [address] [place] [address] Performed By: #### 5 7021-8 ####[facility]ORATORYCLIA [id number] [address] Lymphocytes/100 WBC (Bld) 18.4 % Normal [facility] Comment on above: Order Comment: Speci men Type: BLOOD SPECIMENOrdering Facility: [facility] Address: [address] [place] [address] Performed By: #### 5 7021-8 ####[facility]ORATORYCLIA [id number] [address] MCH (RBC) [Entitic mass] 28.0 pg Normal 26.0-34.0 [facility] Comment on above: Order Comment: Speci men Type: BLOOD SPECIMENOrdering Facility: [facility] Address: [address] [place] [address] Performed By: #### 5 7021-8 ####[facility]ORATORYCLIA [id number] [address] MCHC (RBC) [Mass/Vol] 30.8 g/dL Normal 30.5-36.0 [facility] Comment on above: Order Comment: Speci men Type: BLOOD SPECIMENOrdering Facility: [facility] Address: [address] [place] [address] Performed By: #### 5 7021-8 ####[facility]ORATORYCLIA [id number] [address] [place] MCV (RBC) [Entitic vol] 91.0 fL Normal 80.0-100.0 [facility] Comment on above: Order Comment: Speci men Type: BLOOD SPECIMENOrdering Facility: [facility] Address: [address] [place] [address] Performed By: #### 5 7021-8 ####[facility]ORATORYCLIA [id number] [address] [place] Monocytes (Bld) [#/Vol] 0.47 10*3/uL Normal <0.87 [facility] Comment on above: Order Comment: Speci men Type: BLOOD SPECIMENOrdering Facility: [facility] Address: [address] [place] [address] Performed By: #### 5 7021-8 ####[facility]ORATORYCLIA [id number] [address] Monocytes/100 WBC (Bld) 6.1 % Normal [facility] Comment on above: Order Comment: Speci men Type: BLOOD SPECIMENOrdering Facility: [facility] Address: [address] [place] [address] Performed By: #### 5 7021-8 ####[facility]ORATORYCLIA [id number] [address] [place] Neutrophils (Bld) [#/Vol] 5.55 10*3/uL Normal 1.45-7.50 [facility] Comment on above: Order Comment: Speci men Type: BLOOD SPECIMENOrdering Facility: [facility] Address: [address] [place] [address] Performed By: #### 5 7021-8 ####[facility]ORATORYCLIA [id number] [address] Neutrophils/100 WBC (Bld) 72.3 % Normal [facility] Comment on above: Order Comment: Speci men Type: BLOOD SPECIMENOrdering Facility: [facility] Address: [address] [place] [address] Performed By: #### 5 7021-8 ####[facility]ORATORYCLIA [id number] [address] [place] Nucleated RBC (Bld) [#/Vol] 10*3/uL Normal <0.01 [facility] Comment on above: Order Comment: Speci men Type: BLOOD SPECIMENOrdering Facility: [facility] Address: [address] [place] [address] Performed By: #### 5 7021-8 ####[facility]ORATORYCLIA [id number] [address] Nucleated RBC/100 WBC (Bld) [Ratio] 0.0 /100 WBC Normal [facility] Comment on above: Order Comment: Speci men Type: BLOOD SPECIMENOrdering Facility: [facility] Address: [address] [place] [address] Performed By: #### 5 7021-8 ####[facility]ORATORYCLIA [id number] [address] [place] Platelet mean volume (Bld) [Entitic vol] 9.3 fL Normal 9.0-12.7 [facility] Comment on above: Order Comment: Speci men Type: BLOOD SPECIMENOrdering Facility: [facility] Address: [address] [place] [address] Performed By: #### 5 7021-8 ####[facility]ORATORYCLIA [id number] [address] Platelets (Bld) [#/Vol] 319 10*3/uL Normal 150-400 [facility] Comment on above: Order Comment: Speci men Type: BLOOD SPECIMENOrdering Facility: [facility] Address: [address] [place] [address] Performed By: #### 5 7021-8 ####[facility]ORATORYCLIA [id number] [address] [place] [facility] RBC (Bld) [#/Vol] 3.21 10*6/uL Low 4.20-6.00 [facility] Comment on above: Order Comment: Speci men Type: BLOOD SPECIMENOrdering Facility: [facility] Address: [address] [place] [address] Performed By: #### 5 7021-8 ####[facility]ORATORYCLIA [id number] [address] OF [facility] WBC (Bld) [#/Vol] 7.67 10*3/uL Normal 3.70-11.00 [facility] Comment on above: Order Comment: Speci men Type: BLOOD SPECIMENOrdering Facility: [facility] Address: [address] [place] [address] Performed By: #### 5 7021-8 ####[facility]ORATORYCLIA [id number] [address] STATES [facility] Basophils (Bld) [#/Vol] 0.04 10*3/uL Normal <0.11 [facility] Comment on above: Order Comment: Speci men Type: BLOOD SPECIMENOrdering Facility: [facility] Address: [address] [place] [address] Performed By: #### 5 7021-8 ####[facility]ORATORYCLIA [id number] [address] Basophils/100 WBC (Bld) 0.5 % Normal [facility] Comment on above: Order Comment: Speci men Type: BLOOD SPECIMENOrdering Facility: [facility] Address: [address] [place] [address] Performed By: #### 5 7021-8 ####[facility]ORATORYCLIA [id number] [address] Differential cell count method Nom (Bld) Auto Normal [facility] Comment on above: Order Comment: Speci men Type: BLOOD SPECIMENOrdering Facility: [facility] Address: [address] [place] [address] Performed By: #### 5 7021-8 ####[facility]ORATORYCLIA [id number] [address] [place] Eosinophils (Bld) [#/Vol] 0.19 10*3/uL Normal <0.46 [facility] Comment on above: Order Comment: Speci men Type: BLOOD SPECIMENOrdering Facility: [facility] Address: [address] [place] [address] Performed By: #### 5 7021-8 ####[facility]ORATORYCLIA [id number] [address] [place] Eosinophils/100 WBC (Bld) 2.5 % Normal [facility] Comment on above: Order Comment: Speci men Type: BLOOD SPECIMENOrdering Facility: [facility] Address: [address] [place] [address] Performed By: #### 5 7021-8 ####[facility]ORATORYCLIA [id number] [address] [place] Erythrocyte distribution width (RBC) [Ratio] 17.2 % High 11.5-15.0 [facility] Comment on above: Order Comment: Speci men Type: BLOOD SPECIMENOrdering Facility: [facility] Address: [address] [place] [address] Performed By: #### 5 7021-8 ####[facility]ORATORYCLIA [id number] [address] [place] Hematocrit (Bld) [Volume fraction] 29.5 % Low 39.0-51.0 [facility] Comment on above: Order Comment: Speci men Type: BLOOD SPECIMENOrdering Facility: [facility] Address: [address] [place] [address] Performed By: #### 5 7021-8 ####[facility]ORATORYCLIA [id number] [address] [facility] Hemoglobin (Bld) [Mass/Vol] 9.2 g/dL Low 13.0-17.0 [facility] Comment on above: Order Comment: Speci men Type: BLOOD SPECIMENOrdering Facility: [facility] Address: [address] [place] [address] Performed By: #### 5 7021-8 ####[facility]ORATORYCLIA [id number] [address] IMMATURE GRAN % 0.4 % Normal [facility] Comment on above: Order Comment: Speci men Type: BLOOD SPECIMENOrdering Facility: [facility] Address: [address] [place] [address] Performed By: #### 5 7021-8 ####[facility]ORATORYCLIA [id number] [address] IMMATURE GRAN ABS 0.03 k/uL Normal <0.10 [facility] Comment on above: Order Comment: Speci men Type: BLOOD SPECIMENOrdering Facility: [facility] Address: [address] [place] [address] Performed By: #### 5 7021-8 ####[facility]ORATORYCLIA [id number] [address] [place] Lymphocytes (Bld) [#/Vol] 1.50 10*3/uL Normal 1.00-4.00 [facility] Comment on above: Order Comment: Speci men Type: BLOOD SPECIMENOrdering Facility: [facility] Address: [address] [place] [address] Performed By: #### 5 7021-8 ####[facility]ORATORYCLIA [id number] [address] Lymphocytes/100 WBC (Bld) 19.7 % Normal [facility] Comment on above: Order Comment: Speci men Type: BLOOD SPECIMENOrdering Facility: [facility] Address: [address] [place] [address] Performed By: #### 5 7021-8 ####[facility]ORATORYCLIA [id number] [address] MCH (RBC) [Entitic mass] 28.3 pg Normal 26.0-34.0 [facility] Comment on above: Order Comment: Speci men Type: BLOOD SPECIMENOrdering Facility: [facility] Address: [address] [place] [address] Performed By: #### 5 7021-8 ####[facility]ORATORYCLIA [id number] [address] MCHC (RBC) [Mass/Vol] 31.2 g/dL Normal 30.5-36.0 [facility] Comment on above: Order Comment: Speci men Type: BLOOD SPECIMENOrdering Facility: [facility] Address: [address] [place] [address] Performed By: #### 5 7021-8 ####[facility] LABORATORYCLIA [id number] [address] MCV (RBC) [Entitic vol] 90.8 fL Normal 80.0-100.0 [facility] Comment on above: Order Comment: Speci men Type: BLOOD SPECIMENOrdering Facility: [facility] Address: [address] [place] [address] Performed By: #### 5 7021-8 ####[facility] LABORATORYCLIA [id number] [address] Monocytes (Bld) [#/Vol] 0.49 10*3/uL Normal <0.87 [facility] Comment on above: Order Comment: Speci men Type: BLOOD SPECIMENOrdering Facility: [facility] Address: [address] [place] [address] Performed By: #### 5 7021-8 ####[facility] LABORATORYCLIA [id number] [address] Monocytes/100 WBC (Bld) 6.4 % Normal [facility] Comment on above: Order Comment: Speci men Type: BLOOD SPECIMENOrdering Facility: [facility] Address: [address] [address] Performed By: #### 5 7021-8 ####[facility]ORATORYCLIA [id number] [address] [place] Neutrophils (Bld) [#/Vol] 5.38 10*3/uL Normal 1.45-7.50 [facility] Comment on above: Order Comment: Speci men Type: BLOOD SPECIMENOrdering Facility: [facility] Address: [address] [place] [address] Performed By: #### 5 7021-8 ####[facility]ORATORYCLIA [id number] [address] Neutrophils/100 WBC (Bld) 70.5 % Normal [facility] Comment on above: Order Comment: Speci men Type: BLOOD SPECIMENOrdering Facility: [facility] Address: [address] [place] [address] Performed By: #### 5 7021-8 ####[facility]ORATORYCLIA [id number] [address] Nucleated RBC (Bld) [#/Vol] 10*3/uL Normal <0.01 [facility] Comment on above: Order Comment: Speci men Type: BLOOD SPECIMENOrdering Facility: [facility] Address: [address] [address] Performed By: #### 5 7021-8 ####[facility]ATORYCLIA [id number] [address] Nucleated RBC/100 WBC (Bld) [Ratio] 0.0 /100 WBC Normal [facility] Comment on above: Order Comment: Speci men Type: BLOOD SPECIMENOrdering Facility: [facility] Address: [address] [place] [address] Performed By: #### 5 7021-8 ####[facility]ORATORYCLIA [id number] [place] [address] [place] Platelet mean volume (Bld) [Entitic vol] 9.0 fL Normal 9.0-12.7 [facility] Comment on above: Order Comment: Speci men Type: BLOOD SPECIMENOrdering Facility: [facility] Address: [address] [place] [address] Performed By: #### 5 7021-8 ####[facility]ORATORYCLIA [id number] [place] [address] [place] Platelets (Bld) [#/Vol] 316 10*3/uL Normal 150-400 [facility] Comment on above: Order Comment: Speci men Type: BLOOD SPECIMENOrdering Facility: [facility] Address: [address] [place] [address] Performed By: #### 5 7021-8 ####[facility]ORATORYCLIA [id number] [place] [address] [place] RBC (Bld) [#/Vol] 3.25 10*6/uL Low 4.20-6.00 [facility] Comment on above: Order Comment: Speci men Type: BLOOD SPECIMENOrdering Facility: [facility] Address: [address] [place] [address] Performed By: #### 5 7021-8 ####[facility]ORATORYCLIA [id number] [address] [place] WBC (Bld) [#/Vol] 7.63 10*3/uL Normal 3.70-11.00 [facility] Comment on above: Order Comment: Speci men Type: BLOOD SPECIMENOrdering Facility: [facility] Address: [address] [place] [address] Performed By: #### 5 7021-8 ####[facility]ORATORYCLIA [id number] [address] [place] Basophils (Bld) [#/Vol] Normal <0.11 [facility] Comment on above: Order Comment: Speci men Type: BLOOD SPECIMENOrdering Facility: [facility] Address: [address] [place] [address] Result Comment: Carolina Owens RN informed lab after results autoverified that she rd on the wrong patient. Lab to credit. Nurse to redraw on correct patient.Corrected result: Previously reported as 0.04 k/uL on 08/16/2021 at 4:44 AM EDT. Performed By: #### 5 7021-8 ####[facility]ORATORYCLIA [id number] [address] STATES [facility] Basophils/100 WBC (Bld) Normal [facility] Comment on above: Order Comment: Speci men Type: BLOOD SPECIMENOrdering Facility: [facility] Address: [address] [place] [address] Result Comment: Tati ected result: Previously reported as 0.4 % on 08/16/2021 at 4:44 AM EDT. Performed By: #### 5 7021-8 ####[facility]ORATORYCLIA [id number] [address] CBC W Differential panel, method unspecified (Bld) Normal [facility] Comment on above: Order Comment: Speci men Type: BLOOD SPECIMENOrdering Facility: [facility] Address: [address] [place] [address] Result Comment: Carolina Owens RN informed lab after results autoverified that she rd on the wrong patient. Lab to credit. Nurse to redraw on correct patient. Performed By: #### 5 7021-8 ####[facility]ORATORYCLIA [id number] [address] Differential cell count method Nom (Bld) Normal [facility] Comment on above: Order Comment: Speci men Type: BLOOD SPECIMENOrdering Facility: [facility] Address: [address] [place] [address] Result Comment: Carolina Owens RN informed lab after results autoverified that she rd on the wrong patient. Lab to credit. Nurse to redraw on correct patient.Corrected result: Previously reported as Auto on 08/16/2021 at 4:44 AM EDT. Performed By: #### 5 7021-8 ####[facility]ORATORYCLIA [id number] [address] [place] Eosinophils (Bld) [#/Vol] Normal <0.46 [facility] Comment on above: Order Comment: Speci men Type: BLOOD SPECIMENOrdering Facility: [facility] Address: [address] [place] [address] Result Comment: Carolina Owens RN informed lab after results autoverified that she rd on the wrong patient. Lab to credit. Nurse to redraw on correct patient.Corrected result: Previously reported as 0.07 k/uL on 08/16/2021 at 4:44 AM EDT. Performed By: #### 5 7021-8 ####[facility]ORATORYCLIA [id number] [address] Eosinophils/100 WBC (Bld) Normal [facility] Comment on above: Order Comment: Speci [facility] Type: BLOOD SPECIMENOrdering Facility: [facility] Address: [address] [place] [address] Result Comment: Carolina Owens RN informed lab after results autoverified that she rd on the wrong patient. Lab to credit. Nurse to redraw on correct patient.Corrected result: Previously reported as 0.7 % on 08/16/2021 at 4:44 AM EDT. Performed By: #### 5 7021-8 ####[facility]ORATORYCLIA [id number] [address] [place] Erythrocyte distribution width (RBC) [Ratio] Normal 11.5-15.0 [facility] Comment on above: Order Comment: Speci [facility] Type: BLOOD SPECIMENOrdering Facility: [facility] Address: [address] [place] [address] Result Comment: Carolina Owens RN informed lab after results autoverified that she rd on the wrong patient. Lab to credit. Nurse to redraw on correct patient.Corrected result: Previously reported as 14.2 % on 08/16/2021 at 4:44 AM EDT. Performed By: #### 5 7021-8 ####[facility]ORATORYCLIA [id number] [address] Hematocrit (Bld) [Volume fraction] Normal 39.0-51.0 [facility] Comment on above: Order Comment: Speci men Type: BLOOD SPECIMENOrdering Facility: [facility] Address: [address] [place] [address] Result Comment: Carolina Owens RN informed lab after results autoverified that she rd on the wrong patient. Lab to credit. Nurse to redraw on correct patient.Corrected result: Previously reported as 34.3 % on 08/16/2021 at 4:44 AM EDT. Performed By: #### 5 7021-8 ####[facility]ATORYCLIA [id number] [address] Hemoglobin (Bld) [Mass/Vol] Normal 13.0-17.0 [facility] Comment on above: Order Comment: Speci men Type: BLOOD SPECIMENOrdering Facility: [facility] Address: [address] [place] [address] Result Comment: Carolina Owens RN informed lab after results autoverified that she rd on the wrong patient. Lab to credit. Nurse to redraw on correct patient.Corrected result: Previously reported as 11.2 g/dL on 08/16/2021 at 4:44 AM EDT. Performed By: #### 5 7021-8 ####[facility]ORATORYCLIA [id number] [address] IMMATURE GRAN % Normal [facility] Comment on above: Order Comment: Speci men Type: BLOOD SPECIMENOrdering Facility: [facility] Address: [address] [place] [address] Result Comment: Carolina Owens RN informed lab after results autoverified that she rd on the wrong patient. Lab to credit. Nurse to redraw on correct patient.Corrected result: Previously reported as 0.8 % on 08/16/2021 at 4:44 AM EDT. Performed By: #### 5 7021-8 ####[facility]ORATORYCLIA [id number] [address] STATES OF [facility] IMMATURE GRAN ABS Normal <0.10 [facility] Comment on above: Order Comment: Speci men Type: BLOOD SPECIMENOrdering Facility: [facility] Address: [address] [place] [address] Result Comment: Tati ected result: Previously reported as 0.08 k/uL on 08/16/2021 at 4:44 AM EDT. Performed By: #### 5 7021-8 ####[facility]ATORYCLIA [id number] [address] Lymphocytes (Bld) [#/Vol] Normal 1.00-4.00 [facility] Comment on above: Order Comment: Speci men Type: BLOOD SPECIMENOrdering Facility: [facility] Address: [address] [place] [address] Result Comment: Carolina Owens RN informed lab after results autoverified that she rd on the wrong patient. Lab to credit. Nurse to redraw on correct patient.Corrected result: Previously reported as 1.17 k/uL on 08/16/2021 at 4:44 AM EDT. Performed By: #### 5 7021-8 ####[facility]ORATORYCLIA [id number] [address] Lymphocytes/100 WBC (Bld) Normal [facility] Comment on above: Order Comment: Speci men Type: BLOOD SPECIMENOrdering Facility: [facility] Address: [address] [place] [address] Result Comment: Carolina Owens RN informed lab after results autoverified that she rd on the wrong patient. Lab to credit. Nurse to redraw on correct patient.Corrected result: Previously reported as 12.0 % on 08/16/2021 at 4:44 AM EDT. Performed By: #### 5 7021-8 ####[facility]ORATORYCLIA [id number] [address] [place] MCHC (RBC) [Mass/Vol] Normal 30.5-36.0 [facility] Comment on above: Order Comment: Speci men Type: BLOOD SPECIMENOrdering Facility: [facility] Address: [address] [place] [address] Result Comment: Carolina Owens RN informed lab after results autoverified that she rd on the wrong patient. Lab to credit. Nurse to redraw on correct patient.Corrected result: Previously reported as 32.7 g/dL on 08/16/2021 at 4:44 AM EDT. Performed By: #### 5 7021-8 ####[facility]ORATORYCLIA [id number] [address] [place] MCV (RBC) [Entitic vol] Normal 80.0-100.0 [facility] Comment on above: Order Comment: Speci men Type: BLOOD SPECIMENOrdering Facility: [facility] Address: [address] [place] [address] Result Comment: Carolina Owens RN informed lab after results autoverified that she rd on the wrong patient. Lab to credit. Nurse to redraw on correct patient.Corrected result: Previously reported as 94.2 fL on 08/16/2021 at 4:44 AM EDT. Performed By: #### 5 7021-8 ####[facility]ORATORYCLIA [id number] [address] OF [facility] Monocytes (Bld) [#/Vol] Normal <0.87 [facility] Comment on above: Order Comment: Speci men Type: BLOOD SPECIMENOrdering Facility: [facility] Address: [address] [place] [address] Result Comment: Carolina Owens RN informed lab after results autoverified that she rd on the wrong patient. Lab to credit. Nurse to redraw on correct patient.Corrected result: Previously reported as 0.99 k/uL on 08/16/2021 at 4:44 AM EDT. Performed By: #### 5 7021-8 ####[facility]ORATORYCLIA [id number] [address] [place] Monocytes/100 WBC (Bld) Normal [facility] Comment on above: Order Comment: Speci men Type: BLOOD SPECIMENOrdering Facility: [facility] Address: [address] [place] [address] Result Comment: Carolina Owens RN informed lab after results autoverified that she rd on the wrong patient. Lab to credit. Nurse to redraw on correct patient.Corrected result: Previously reported as 10.2 % on 08/16/2021 at 4:44 AM EDT. Performed By: #### 5 7021-8 ####[facility]ORATORYCLIA [id number] [address] [place] Neutrophils (Bld) [#/Vol] Normal 1.45-7.50 [facility] Comment on above: Order Comment: Speci men Type: BLOOD SPECIMENOrdering Facility: [facility] Address: [address] [place] [address] Result Comment: Carolina Owens RN informed lab after results autoverified that she rd on the wrong patient. Lab to credit. Nurse to redraw on correct patient.Corrected result: Previously reported as 7.40 k/uL on 08/16/2021 at 4:44 AM EDT. Performed By: #### 5 7021-8 ####[facility]ORATORYCLIA [id number] [address] STATES [place] [facility] Neutrophils/100 WBC (Bld) Normal [facility] Comment on above: Order Comment: Speci men Type: BLOOD SPECIMENOrdering Facility: [facility] Address: [address] [place] [address] Result Comment: Carolina Owens RN informed lab after results autoverified that she rd on the wrong patient. Lab to credit. Nurse to redraw on correct patient.Corrected result: Previously reported as 75.9 % on 08/16/2021 at 4:44 AM EDT. Performed By: #### 5 7021-8 ####[facility]ORATORYCLIA [id number] [place] [address] [place] Platelet mean volume (Bld) [Entitic vol] Normal 9.0-12.7 [facility] Comment on above: Order Comment: Speci men Type: BLOOD SPECIMENOrdering Facility: [facility] Address: [address] [place] [address] Result Comment: Carolina Owens RN informed lab after results autoverified that she rd on the wrong patient. Lab to credit. Nurse to redraw on correct patient.Corrected result: Previously reported as 9.1 fL on 08/16/2021 at 4:44 AM EDT. Performed By: #### 5 7021-8 ####[facility]ORATORYCLIA [id number] [place] [address] [place] Platelets (Bld) [#/Vol] Normal 150-400 [facility] Comment on above: Order Comment: Shira feldman Type: BLOOD SPECIMENOrdering Facility: [facility] Address: [address] [place] [address] Result Comment: Carolina Owens RN informed lab after results autoverified that she rd on the wrong patient. Lab to credit. Nurse to redraw on correct patient.Corrected result: Previously reported as 338 k/uL on 08/16/2021 at 4:44 AM EDT. Performed By: #### 5 7021-8 ####[facility]ORATORYCLIA [id number] [address] [place] RBC (Bld) [#/Vol] Normal 4.20-6.00 [facility] Comment on above: Order Comment: Shira feldman Type: BLOOD SPECIMENOrdering Facility: [facility] Address: [address] [place] [address] Result Comment: Craolina Owens RN informed lab after results autoverified that she rd on the wrong patient. Lab to credit. Nurse to redraw on correct patient.Corrected result: Previously reported as 3.64 m/uL on 08/16/2021 at 4:44 AM EDT. Performed By: #### 5 7021-8 ####[facility]ATORYCLIA [id number] [address] [place] WBC (Bld) [#/Vol] Normal 3.70-11.00 [facility] Comment on above: Order Comment: Speci men Type: BLOOD SPECIMENOrdering Facility: [facility] Address: [address] [place] [address] Result Comment: Carolina Owens RN informed lab after results autoverified that she rd on the wrong patient. Lab to credit. Nurse to redraw on correct patient.Corrected result: Previously reported as 9.75 k/uL on 08/16/2021 at 4:44 AM EDT. Performed By: #### 5 7021-8 ####[facility]ORATORYCLIA [id number] [address] CONSULT PROGon 08-16-2021 CONSULT PROG [facility] Magnesium SerPl-mCncon 08-16 Magnesium [Mass/Vol] 1.8 mg/dL Normal 1.7-2.3 [facility] Comment on above: Order Comment: Speci men Type: BLOOD SPECIMENOrdering Facility: [facility] Address: [address] [place] [address] Performed By: #### 2 4321-2, 83383-8 ####[facility]ATORYCLIA [id number] [address] NURSING PROGon 08-16-2021 NURSING PROG Normal [facility] Basic metabolic 2000 panelon 08-15-2021 Anion gap [Moles/Vol] 13 mmol/L Normal 9-18 [facility] Comment on above: Order Comment: Speci men Type: BLOOD SPECIMENOrdering Facility: [facility] Address: [address] [place] [address] Performed By: #### 2 4321-2 ####[facility]ORATORYCLIA [id number] [address] STATES [facility] Calcium [Mass/Vol] 9.0 mg/dL Normal 8.5-10.2 [facility] Comment on above: Order Comment: Speci men Type: BLOOD SPECIMENOrdering Facility: [facility] Address: [address] [place] [address] Performed By: #### 2 4321-2 ####[facility]ORATORYCLIA [id number] [address] OF [facility] Chloride [Moles/Vol] 95 mmol/L Low 97-105 [facility] Comment on above: Order Comment: Speci men Type: BLOOD SPECIMENOrdering Facility: [facility] Address: [address] [place] [address] Performed By: #### 2 4321-2 ####[facility]ATORYCLIA [id number] [address] CO2 [Moles/Vol] 28 mmol/L Normal 22-30 [facility] Comment on above: Order Comment: Speci men Type: BLOOD SPECIMENOrdering Facility: [facility] Address: [address] [place] [address] Performed By: #### 2 4321-2 ####[facility]ORATORYCLIA [id number] [address] Creatinine [Mass/Vol] 0.50 mg/dL Low 0.73-1.22 [facility] Comment on above: Order Comment: Speci men Type: BLOOD SPECIMENOrdering Facility: [facility] Address: [address] [place] [address] Performed By: #### 2 4321-2 ####[facility]ATORYCLIA [id number] [address] ESTIMATED GLOMERULAR FILTRATION RATE 110 mL/min/1.73m??? Normal >=60 [facility] Comment on above: Order Comment: Speci men Type: BLOOD SPECIMENOrdering Facility: [facility] Address: [address] [place] [address] Result Comment: Luzmaria mated Glomerular Filtration Rate [...] #### 2 4321-2 ####[facility]ATORYCLIA [id number] [place] [address] [place] Glucose [Mass/Vol] 106 mg/dL High 74-99 [facility] Comment on above: Order Comment: Speci men Type: BLOOD SPECIMENOrdering Facility: [facility] Address: [address] [place] [address] Result Comment: The [place] [employer] (ADA) provides guidance for cutoff [...] Standards of Medical Care in Diabetes 2016, [place] [employer]. Diabetes Care. 2016.39(Suppl 1). Performed By: #### 2 4321-2 ####[facility]ORATORYCLIA [id number] [place] [address] [place] Potassium [Moles/Vol] 3.3 mmol/L Low 3.7-5.1 [facility] Comment on above: Order Comment: Johni men Type: BLOOD SPECIMENOrdering Facility: [facility] Address: [address] [place] [address] Performed By: #### 2 4321-2 ####[facility]ORATORYCLIA [id number] [place] [address] [place] Sodium [Moles/Vol] 136 mmol/L Normal 136-144 [facility] Comment on above: Order Comment: Speci men Type: BLOOD SPECIMENOrdering Facility: [facility] Address: [address] [place] [address] Performed By: #### 2 4321-2 ####[facility]ORATORYCLIA [id number] [place] [address] [place] Urea nitrogen [Mass/Vol] 11 mg/dL Normal 9-24 [facility] Comment on above: Order Comment: Speci men Type: BLOOD SPECIMENOrdering Facility: [facility] Address: [address] [place] [address] Performed By: #### 2 4321-2 ####[facility]ORATORYCLIA [id number] [address] [place] CASE MANAGEMon 08-15-2021 CASE MANAGEM Normal [facility] CBC W Auto Differential pane l (Bld)on 08-15-2021 Basophils (Bld) [#/Vol] 0.03 10*3/uL Normal <0.11 [facility] Comment on above: Order Comment: Speci men Type: BLOOD SPECIMENOrdering Facility: [facility] Address: [address] [place] [address] Performed By: #### 5 7021-8 ####[facility]ORATORYCLIA [id number] [address] [place] Basophils/100 WBC (Bld) 0.4 % Normal [facility] Comment on above: Order Comment: Speci men Type: BLOOD SPECIMENOrdering Facility: [facility] Address: [address] [place] [address] Performed By: #### 5 7021-8 ####[facility]ATORYCLIA [id number] [address] [place] Differential cell count method Nom (Bld) Auto Normal [facility] Comment on above: Order Comment: Speci men Type: BLOOD SPECIMENOrdering Facility: [facility] Address: [address] [place] [address] Performed By: #### 5 7021-8 ####[facility]ORATORYCLIA [id number] [place] [address] [place] Eosinophils (Bld) [#/Vol] 0.20 10*3/uL Normal <0.46 [facility] Comment on above: Order Comment: Speci men Type: BLOOD SPECIMENOrdering Facility: [facility] Address: [address] [place] [address] Performed By: #### 5 7021-8 ####[facility]ATORYCLIA [id number] [address] Eosinophils/100 WBC (Bld) 2.5 % Normal [facility] Comment on above: Order Comment: Speci men Type: BLOOD SPECIMENOrdering Facility: [facility] Address: [address] [place] [address] Performed By: #### 5 7021-8 ####[facility]ORATORYCLIA [id number] [address] [place] Erythrocyte distribution width (RBC) [Ratio] 16.7 % High 11.5-15.0 [facility] Comment on above: Order Comment: Speci men Type: BLOOD SPECIMENOrdering Facility: [facility] Address: [address] [place] [address] Performed By: #### 5 7021-8 ####[facility]ORATORYCLIA [id number] [address] Hematocrit (Bld) [Volume fraction] 30.3 % Low 39.0-51.0 [facility] Comment on above: Order Comment: Speci men Type: BLOOD SPECIMENOrdering Facility: [facility] Address: [address] [place] [address] Performed By: #### 5 7021-8 ####[facility]ATORYCLIA [id number] [address] [place] Hemoglobin (Bld) [Mass/Vol] 9.4 g/dL Low 13.0-17.0 [facility] Comment on above: Order Comment: Speci men Type: BLOOD SPECIMENOrdering Facility: [facility] Address: [address] [place] [address] Performed By: #### 5 7021-8 ####[facility]ATORYCLIA [id number] [address] [place] IMMATURE GRAN % 0.4 % Normal [facility] Comment on above: Order Comment: Speci men Type: BLOOD SPECIMENOrdering Facility: [facility] [facility] Address: [address] [place] [address] Performed By: #### 5 7021-8 ####[facility] LABORATORYCLIA [id number] [address] IMMATURE GRAN ABS 0.03 k/uL Normal <0.10 [facility] Comment on above: Order Comment: Speci men Type: BLOOD SPECIMENOrdering Facility: [facility] Address: [address] [place] [address] Performed By: #### 5 7021-8 ####[facility] LABORATORYCLIA [id number] [address] Lymphocytes (Bld) [#/Vol] 1.50 10*3/uL Normal 1.00-4.00 [facility] Comment on above: Order Comment: Speci men Type: BLOOD SPECIMENOrdering Facility: [facility] Address: [address] [place] [address] Performed By: #### 5 7021-8 ####[facility]ORATORYCLIA [id number] [address] Lymphocytes/100 WBC (Bld) 18.5 % Normal [facility] Comment on above: Order Comment: Speci men Type: BLOOD SPECIMENOrdering Facility: [facility] Address: [address] [place] [address] Performed By: #### 5 7021-8 ####[facility] LABORATORYCLIA [id number] [address] MCH (RBC) [Entitic mass] 29.0 pg Normal 26.0-34.0 [facility] Comment on above: Order Comment: Speci men Type: BLOOD SPECIMENOrdering Facility: [facility] Address: [address] [place] [address] Performed By: #### 5 7021-8 ####[facility] LABORATORYCLIA [id number] [place] [address] [place] MCHC (RBC) [Mass/Vol] 31.0 g/dL Normal 30.5-36.0 [facility] Comment on above: Order Comment: Speci men Type: BLOOD SPECIMENOrdering Facility: [facility] Address: [address] [place] [address] Performed By: #### 5 7021-8 ####[facility] LABORATORYCLIA [id number] [place] [address] [place] MCV (RBC) [Entitic vol] 93.5 fL Normal 80.0-100.0 [facility] Comment on above: Order Comment: Speci men Type: BLOOD SPECIMENOrdering Facility: [facility] Address: [address] [place] [address] Performed By: #### 5 7021-8 ####[facility] LABORATORYCLIA [id number] [address] [place] Monocytes (Bld) [#/Vol] 0.47 10*3/uL Normal <0.87 [facility] Comment on above: Order Comment: Speci men Type: BLOOD SPECIMENOrdering Facility: [facility] Address: [address] [place] [address] Performed By: #### 5 7021-8 ####[facility] LABORATORYCLIA [id number] [address] STATES [facility] Monocytes/100 WBC (Bld) 5.8 % Normal [facility] Comment on above: Order Comment: Speci men Type: BLOOD SPECIMENOrdering Facility: [facility] Address: [address] [place] [address] Performed By: #### 5 7021-8 ####[facility]ORATORYCLIA [id number] [place] [address] [place] Neutrophils (Bld) [#/Vol] 5.87 10*3/uL Normal 1.45-7.50 [facility] Comment on above: Order Comment: Speci men Type: BLOOD SPECIMENOrdering Facility: [facility] Address: [address] [place] [address] Performed By: #### 5 7021-8 ####[facility]ORATORYCLIA [id number] [address] Neutrophils/100 WBC (Bld) 72.4 % Normal [facility] Comment on above: Order Comment: Speci men Type: BLOOD SPECIMENOrdering Facility: [facility] Address: [address] [place] [address] Performed By: #### 5 7021-8 ####[facility]ORATORYCLIA [id number] [address] [place] Nucleated RBC (Bld) [#/Vol] 10*3/uL Normal <0.01 [facility] Comment on above: Order Comment: Speci men Type: BLOOD SPECIMENOrdering Facility: [facility] Address: [address] [place] [address] Performed By: #### 5 7021-8 ####[facility]ORATORYCLIA [id number] [address] Nucleated RBC/100 WBC (Bld) [Ratio] 0.0 /100 WBC Normal [facility] Comment on above: Order Comment: Speci men Type: BLOOD SPECIMENOrdering Facility: [facility] Address: [address] [place] [address] Performed By: #### 5 7021-8 ####[facility]ORATORYCLIA [id number] [address] [place] Platelet mean volume (Bld) [Entitic vol] 9.4 fL Normal 9.0-12.7 [facility] Comment on above: Order Comment: Speci men Type: BLOOD SPECIMENOrdering Facility: [facility] Address: [address] [place] [address] Performed By: #### 5 7021-8 ####[facility]ORATORYCLIA [id number] [address] [place] Platelets (Bld) [#/Vol] 290 10*3/uL Normal 150-400 [facility] Comment on above: Order Comment: Speci men Type: BLOOD SPECIMENOrdering Facility: [facility] Address: [address] [place] [address] Performed By: #### 5 7021-8 ####[facility]ORATORYCLIA [id number] [address] [facility] RBC (Bld) [#/Vol] 3.24 10*6/uL Low 4.20-6.00 [facility] Comment on above: Order Comment: Speci men Type: BLOOD SPECIMENOrdering Facility: [facility] Address: [address] [place] [address] Performed By: #### 5 7021-8 ####[facility]ORATORYCLIA [id number] [address] STATES [facility] WBC (Bld) [#/Vol] 8.10 10*3/uL Normal 3.70-11.00 [facility] Comment on above: Order Comment: Speci men Type: BLOOD SPECIMENOrdering Facility: [facility] Address: [address] [place] [address] Performed By: #### 5 7021-8 ####[facility]ORATORYCLIA [id number] [address] [facility] THERAPY NTon 08-15-2021 THERAPY NT Normal [facility] THERAPY NT Normal [facility] THERAPY NT Normal [facility] Basic metabolic 2000 panelon 08-14-2021 Anion gap [Moles/Vol] 10 mmol/L Normal 9-18 [facility] Comment on above: Order Comment: Speci men Type: BLOOD SPECIMENOrdering Facility: [facility] Address: [address] [place] [address] Performed By: #### 2 4321-2 ####[facility]ORATORYCLIA [id number] [address] Calcium [Mass/Vol] 8.8 mg/dL Normal 8.5-10.2 [facility] Comment on above: Order Comment: Speci men Type: BLOOD SPECIMENOrdering Facility: [facility] Address: [address] [place] [address] Performed By: #### 2 4321-2 ####[facility]ORATORYCLIA [id number] [place] [address] [place] Chloride [Moles/Vol] 92 mmol/L Low 97-105 [facility] Comment on above: Order Comment: Speci men Type: BLOOD SPECIMENOrdering Facility: [facility] Address: [address] [place] [address] Performed By: #### 2 4321-2 ####[facility]ORATORYCLIA [id number] [place] [address] [place] CO2 [Moles/Vol] 29 mmol/L Normal 22-30 [facility] Comment on above: Order Comment: Speci men Type: BLOOD SPECIMENOrdering Facility: [facility] Address: [address] [place] [address] Performed By: #### 2 4321-2 ####[facility]ORATORYCLIA [id number] [address] STATES [facility] Creatinine [Mass/Vol] 0.49 mg/dL Low 0.73-1.22 [facility] Comment on above: Order Comment: Speci men Type: BLOOD SPECIMENOrdering Facility: [facility] Address: [address] [place] [address] Performed By: #### 2 4321-2 ####[facility]ORATORYCLIA [id number] [address] [facility] ESTIMATED GLOMERULAR FILTRATION RATE 111 mL/min/1.73m??? Normal >=60 [facility] Comment on above: Order Comment: Speci men Type: BLOOD SPECIMENOrdering Facility: [facility] Address: [address] [place] [address] Result Comment: Luzmaria mated Glomerular Filtration Rate [...] #### 2 4321-2 ####[facility]ORATORYCLIA [id number] [place] [address] [place] Glucose [Mass/Vol] 104 mg/dL High 74-99 [facility] Comment on above: Order Comment: Shira feldman Type: BLOOD SPECIMENOrdering Facility: [facility] Address: [address] [place] [address] Result Comment: The [place] [employer] (ADA) provides guidance for cutoff [...] Standards of Medical Care in Diabetes 2016, [place] [employer]. Diabetes Care. 2016.39(Suppl 1). Performed By: #### 2 4321-2 ####[facility]ORATORYCLIA [id number] [place] [address] [place] Potassium [Moles/Vol] 3.1 mmol/L Low 3.7-5.1 [facility] Comment on above: Order Comment: Shira feldman Type: BLOOD SPECIMENOrdering Facility: [facility] Address: [address] [address] Performed By: #### 2 4321-2 ####[facility]ORATORYCLIA [id number] [place] [address] [place] Sodium [Moles/Vol] 131 mmol/L Low 136-144 [facility] Comment on above: Order Comment: Shira feldman Type: BLOOD SPECIMENOrdering Facility: [facility] Address: [address] [address] Performed By: #### 2 4321-2 ####[facility]ORATORYCLIA [id number] [address] [place] Urea nitrogen [Mass/Vol] 13 mg/dL Normal 9-24 [facility] Comment on above: Order Comment: Speci men Type: BLOOD SPECIMENOrdering Facility: [facility] Address: [address] [place] [address] Performed By: #### 2 4321-2 ####[facility]ORATORYCLIA [id number] [address] [place] CBC W Auto Differential pane l (Bld)on 08-14-2021 Basophils (Bld) [#/Vol] 10*3/uL Normal <0.11 [facility] Comment on above: Order Comment: Speci men Type: BLOOD SPECIMENOrdering Facility: [facility] Address: [address] [place] [address] Performed By: #### 5 7021-8 ####[facility]ORATORYCLIA [id number] [address] [place] Basophils/100 WBC (Bld) 0.2 % Normal [facility] Comment on above: Order Comment: Speci men Type: BLOOD SPECIMENOrdering Facility: [facility] Address: [address] [place] [address] Performed By: #### 5 7021-8 ####[facility]ORATORYCLIA [id number] [address] Differential cell count method Nom (Bld) Auto Normal [facility] Comment on above: Order Comment: Speci men Type: BLOOD SPECIMENOrdering Facility: [facility] Address: [address] [place] [address] Performed By: #### 5 7021-8 ####[facility]ORATORYCLIA [id number] [address] [place] Eosinophils (Bld) [#/Vol] 0.23 10*3/uL Normal <0.46 [facility] Comment on above: Order Comment: Speci men Type: BLOOD SPECIMENOrdering Facility: [facility] Address: [address] [place] [address] Performed By: #### 5 7021-8 ####[facility]ORATORYCLIA [id number] [address] Eosinophils/100 WBC (Bld) 2.7 % Normal [facility] Comment on above: Order Comment: Speci men Type: BLOOD SPECIMENOrdering Facility: [facility] Address: [address] [place] [address] Performed By: #### 5 7021-8 ####[facility]ORATORYCLIA [id number] [address] Erythrocyte distribution width (RBC) [Ratio] 16.6 % High 11.5-15.0 [facility] Comment on above: Order Comment: Speci men Type: BLOOD SPECIMENOrdering Facility: [facility] Address: [address] [place] [address] Performed By: #### 5 7021-8 ####[facility]ORATORYCLIA [id number] [address] Hematocrit (Bld) [Volume fraction] 28.6 % Low 39.0-51.0 [facility] Comment on above: Order Comment: Speci men Type: BLOOD SPECIMENOrdering Facility: [facility] Address: [address] [place] [address] Performed By: #### 5 7021-8 ####[facility]ORATORYCLIA [id number] [address] Hemoglobin (Bld) [Mass/Vol] 9.0 g/dL Low 13.0-17.0 [facility] Comment on above: Order Comment: Speci men Type: BLOOD SPECIMENOrdering Facility: [facility] Address: [address] [place] [address] Performed By: #### 5 7021-8 ####[facility]ORATORYCLIA [id number] [address] [place] IMMATURE GRAN % 0.2 % Normal [facility] Comment on above: Order Comment: Speci men Type: BLOOD SPECIMENOrdering Facility: [facility] Address: [address] [place] [address] Performed By: #### 5 7021-8 ####[facility]ORATORYCLIA [id number] [address] STATES [facility] IMMATURE GRAN ABS <0.03 Normal <0.10 [facility] Comment on above: Order Comment: Speci men Type: BLOOD SPECIMENOrdering Facility: [facility] Address: [address] [place] [address] Performed By: #### 5 7021-8 ####[facility]ORATORYCLIA [id number] [address] Lymphocytes (Bld) [#/Vol] 1.33 10*3/uL Normal 1.00-4.00 [facility] Comment on above: Order Comment: Speci men Type: BLOOD SPECIMENOrdering Facility: [facility] Address: [address] [place] [address] Performed By: #### 5 7021-8 ####[facility]ORATORYCLIA [id number] [address] Lymphocytes/100 WBC (Bld) 15.6 % Normal [facility] Comment on above: Order Comment: Speci men Type: BLOOD SPECIMENOrdering Facility: [facility] Address: [address] [place] [address] Performed By: #### 5 7021-8 ####[facility]ORATORYCLIA [id number] [address] STATES [facility] MCH (RBC) [Entitic mass] 29.0 pg Normal 26.0-34.0 [facility] Comment on above: Order Comment: Speci men Type: BLOOD SPECIMENOrdering Facility: [facility] Address: [address] [place] [address] Performed By: #### 5 7021-8 ####[facility]ORATORYCLIA [id number] [address] MCHC (RBC) [Mass/Vol] 31.5 g/dL Normal 30.5-36.0 [facility] Comment on above: Order Comment: Speci men Type: BLOOD SPECIMENOrdering Facility: [facility] Address: [address] [place] [address] Performed By: #### 5 7021-8 ####[facility]ORATORYCLIA [id number] [address] [place] MCV (RBC) [Entitic vol] 92.3 fL Normal 80.0-100.0 [facility] Comment on above: Order Comment: Speci men Type: BLOOD SPECIMENOrdering Facility: [facility] Address: [address] [place] [address] Performed By: #### 5 7021-8 ####[facility]ORATORYCLIA [id number] [address] [place] Monocytes (Bld) [#/Vol] 0.44 10*3/uL Normal <0.87 [facility] Comment on above: Order Comment: Speci men Type: BLOOD SPECIMENOrdering Facility: [facility] Address: [address] [place] [address] Performed By: #### 5 7021-8 ####[facility]ORATORYCLIA [id number] [address] Monocytes/100 WBC (Bld) 5.2 % Normal [facility] Comment on above: Order Comment: Speci men Type: BLOOD SPECIMENOrdering Facility: [facility] Address: [address] [place] [address] Performed By: #### 5 7021-8 ####[facility]ORATORYCLIA [id number] [address] [place] Neutrophils (Bld) [#/Vol] 6.46 10*3/uL Normal 1.45-7.50 [facility] Comment on above: Order Comment: Speci men Type: BLOOD SPECIMENOrdering Facility: [facility] Address: [address] [place] [address] Performed By: #### 5 7021-8 ####[facility]ORATORYCLIA [id number] [address] Neutrophils/100 WBC (Bld) 76.1 % Normal [facility] Comment on above: Order Comment: Speci men Type: BLOOD SPECIMENOrdering Facility: [facility] Address: [address] [place] [address] Performed By: #### 5 7021-8 ####[facility]ATORYCLIA [id number] [address] [place] Nucleated RBC (Bld) [#/Vol] 10*3/uL Normal <0.01 [facility] Comment on above: Order Comment: Speci men Type: BLOOD SPECIMENOrdering Facility: [facility] Address: [address] [place] [address] Performed By: #### 5 7021-8 ####[facility]ATORYCLIA [id number] [address] Nucleated RBC/100 WBC (Bld) [Ratio] 0.0 /100 WBC Normal [facility] Comment on above: Order Comment: Speci men Type: BLOOD SPECIMENOrdering Facility: [facility] Address: [address] [place] [address] Performed By: #### 5 7021-8 ####[facility]ORATORYCLIA [id number] [address] [place] Platelet mean volume (Bld) [Entitic vol] 9.5 fL Normal 9.0-12.7 [facility] Comment on above: Order Comment: Speci men Type: BLOOD SPECIMENOrdering Facility: [facility] Address: [address] [place] [address] Performed By: #### 5 7021-8 ####[facility]ATORYCLIA [id number] [address] [place] Platelets (Bld) [#/Vol] 247 10*3/uL Normal 150-400 [facility] Comment on above: Order Comment: Speci men Type: BLOOD SPECIMENOrdering Facility: [facility] Address: [address] [place] [address] Performed By: #### 5 7021-8 ####[facility]ORATORYCLIA [id number] [address] [place] RBC (Bld) [#/Vol] 3.10 10*6/uL Low 4.20-6.00 [facility] Comment on above: Order Comment: Speci men Type: BLOOD SPECIMENOrdering Facility: [facility] Address: [address] [place] [address] Performed By: #### 5 7021-8 ####[facility]ORATORYCLIA [id number] [address] [facility] WBC (Bld) [#/Vol] 8.50 10*3/uL Normal 3.70-11.00 [facility] Comment on above: Order Comment: Speci men Type: BLOOD SPECIMENOrdering Facility: [facility] Address: [address] [place] [address] Performed By: #### 5 7021-8 ####[facility]ORATORYCLIA [id number] [address] [place] CONSULTon 08-14-2021 CONSULT Normal [facility] NURSING PROGon 08-14-2021 NURSING PROG Normal [facility] CBC W Auto Differential pane l (Bld)on 08-13-2021 Basophils (Bld) [#/Vol] 10*3/uL Normal <0.11 [facility] Comment on above: Order Comment: Speci men Type: BLOOD SPECIMENOrdering Facility: [facility] Address: [address] [place] [address] Performed By: #### 5 7021-8 ####[facility]ATORYCLIA [id number] [address] [place] [facility] Basophils/100 WBC (Bld) 0.2 % Normal [facility] Comment on above: Order Comment: Speci men Type: BLOOD SPECIMENOrdering Facility: [facility] Address: [address] [address] Performed By: #### 5 7021-8 ####[facility]ORATORYCLIA [id number] [address] Differential cell count method Nom (Bld) Auto Normal [facility] Comment on above: Order Comment: Speci men Type: BLOOD SPECIMENOrdering Facility: [facility] Address: [address] [place] [address] Performed By: #### 5 7021-8 ####[facility]ORATORYCLIA [id number] [address] Eosinophils (Bld) [#/Vol] 0.31 10*3/uL Normal <0.46 [facility] Comment on above: Order Comment: Speci men Type: BLOOD SPECIMENOrdering Facility: [facility] Address: [address] [place] [address] Performed By: #### 5 7021-8 ####[facility]ATORYCLIA [id number] [address] Eosinophils/100 WBC (Bld) 3.7 % Normal [facility] Comment on above: Order Comment: Speci men Type: BLOOD SPECIMENOrdering Facility: [facility] Address: [address] [place] [address] Performed By: #### 5 7021-8 ####[facility]ORATORYCLIA [id number] [address] Erythrocyte distribution width (RBC) [Ratio] 16.6 % High 11.5-15.0 [facility] Comment on above: Order Comment: Speci men Type: BLOOD SPECIMENOrdering Facility: [facility] Address: [address] [place] [address] Performed By: #### 5 7021-8 ####[facility]ORATORYCLIA [id number] [address] [place] Hematocrit (Bld) [Volume fraction] 27.5 % Low 39.0-51.0 [facility] Comment on above: Order Comment: Speci men Type: BLOOD SPECIMENOrdering Facility: [facility] Address: [address] [place] [address] Performed By: #### 5 7021-8 ####[facility]ATORYCLIA [id number] [address] [facility] Hemoglobin (Bld) [Mass/Vol] 8.4 g/dL Low 13.0-17.0 [facility] Comment on above: Order Comment: Speci men Type: BLOOD SPECIMENOrdering Facility: [facility] Address: [address] [place] [address] Performed By: #### 5 7021-8 ####[facility]ORATORYCLIA [id number] [address] IMMATURE GRAN % 0.5 % Normal [facility] Comment on above: Order Comment: Speci men Type: BLOOD SPECIMENOrdering Facility: [facility] Address: [address] [place] [address] Performed By: #### 5 7021-8 ####[facility]ATORYCLIA [id number] [address] IMMATURE GRAN ABS 0.04 k/uL Normal <0.10 [facility] Comment on above: Order Comment: Speci men Type: BLOOD SPECIMENOrdering Facility: [facility] Address: [address] [place] [address] Performed By: #### 5 7021-8 ####[facility]ORATORYCLIA [id number] [address] [place] Lymphocytes (Bld) [#/Vol] 1.55 10*3/uL Normal 1.00-4.00 [facility] Comment on above: Order Comment: Speci men Type: BLOOD SPECIMENOrdering Facility: [facility] Address: [address] [place] [address] Performed By: #### 5 7021-8 ####[facility]ORATORYCLIA [id number] [place] [address] Lymphocytes/100 WBC (Bld) 18.7 % Normal [facility] Comment on above: Order Comment: Speci men Type: BLOOD SPECIMENOrdering Facility: [facility] Address: [address] [place] [address] Performed By: #### 5 7021-8 ####[facility] LABORATORYCLIA [id number] [address] MCH (RBC) [Entitic mass] 28.9 pg Normal 26.0-34.0 [facility] Comment on above: Order Comment: Speci men Type: BLOOD SPECIMENOrdering Facility: [facility] Address: [address] [place] [address] Performed By: #### 5 7021-8 ####[facility] LABORATORYCLIA [id number] [address] [facility] MCHC (RBC) [Mass/Vol] 30.5 g/dL Normal 30.5-36.0 [facility] Comment on above: Order Comment: Speci men Type: BLOOD SPECIMENOrdering Facility: [facility] Address: [address] [place] [address] Performed By: #### 5 7021-8 ####[facility] LABORATORYCLIA [id number] [address] MCV (RBC) [Entitic vol] 94.5 fL Normal 80.0-100.0 [facility] Comment on above: Order Comment: Speci men Type: BLOOD SPECIMENOrdering Facility: [facility] Address: [address] [place] [address] Performed By: #### 5 7021-8 ####[facility] LABORATORYCLIA [id number] [address] Monocytes (Bld) [#/Vol] 0.47 10*3/uL Normal <0.87 [facility] Comment on above: Order Comment: Speci men Type: BLOOD SPECIMENOrdering Facility: [facility] Address: [address] [place] [address] Performed By: #### 5 7021-8 ####[facility]ORATORYCLIA [id number] [address] [place] Monocytes/100 WBC (Bld) 5.7 % Normal [facility] Comment on above: Order Comment: Speci men Type: BLOOD SPECIMENOrdering Facility: [facility] Address: [address] [place] [address] Performed By: #### 5 7021-8 ####[facility]ORATORYCLIA [id number] [place] [address] [place] Neutrophils (Bld) [#/Vol] 5.92 10*3/uL Normal 1.45-7.50 [facility] Comment on above: Order Comment: Speci men Type: BLOOD SPECIMENOrdering Facility: [facility] Address: [address] [place] [address] Performed By: #### 5 7021-8 ####[facility]ORATORYCLIA [id number] [address] Neutrophils/100 WBC (Bld) 71.2 % Normal [facility] Comment on above: Order Comment: Speci men Type: BLOOD SPECIMENOrdering Facility: [facility] Address: [address] [place] [address] Performed By: #### 5 7021-8 ####[facility]ORATORYCLIA [id number] [address] [place] Nucleated RBC (Bld) [#/Vol] 10*3/uL Normal <0.01 [facility] Comment on above: Order Comment: Speci men Type: BLOOD SPECIMENOrdering Facility: [facility] Address: [address] [place] [address] Performed By: #### 5 7021-8 ####[facility]ATORYCLIA [id number] [address] [place] Nucleated RBC/100 WBC (Bld) [Ratio] 0.0 /100 WBC Normal [facility] Comment on above: Order Comment: Speci men Type: BLOOD SPECIMENOrdering Facility: [facility] Address: [address] [place] [address] Performed By: #### 5 7021-8 ####[facility]ORATORYCLIA [id number] [address] Platelet mean volume (Bld) [Entitic vol] 9.9 fL Normal 9.0-12.7 [facility] Comment on above: Order Comment: Speci men Type: BLOOD SPECIMENOrdering Facility: [facility] Address: [address] [place] [address] Performed By: #### 5 7021-8 ####[facility]ORATORYCLIA [id number] [address] [place] Platelets (Bld) [#/Vol] 203 10*3/uL Normal 150-400 [facility] Comment on above: Order Comment: Speci men Type: BLOOD SPECIMENOrdering Facility: [facility] Address: [address] [place] [address] Performed By: #### 5 7021-8 ####[facility]ORATORYCLIA [id number] [address] [place] RBC (Bld) [#/Vol] 2.91 10*6/uL Low 4.20-6.00 [facility] Comment on above: Order Comment: Speci men Type: BLOOD SPECIMENOrdering Facility: [facility] Address: [address] [place], [place] [address] Performed By: #### 5 7021-8 ####[facility]ORATORYCLIA [id number] [address] [place] WBC (Bld) [#/Vol] 8.31 10*3/uL Normal 3.70-11.00 [facility] Comment on above: Order Comment: Speci men Type: BLOOD SPECIMENOrdering Facility: [facility] Address: [address] [place] [address] Performed By: #### 5 7021-8 ####[facility]ORATORYCLIA [id number] [place] [address] [place] aPTT PPPon 08-13-2021 aPTT Coag (PPP) [Time] 69.7 s High 23.0-32.4 [facility] Comment on above: Order Comment: Speci men Type: BLOOD SPECIMENOrdering Facility: [facility] Address: [address] [place] [address] Performed By: #### 1 4979-9 ####[facility]ATORYCLIA [id number] [address] [place] aPTT Coag (PPP) [Time] 70.6 s High 23.0-32.4 [facility] Comment on above: Order Comment: Speci men Type: BLOOD SPECIMENOrdering Facility: [facility] Address: [address] [place] [address] Performed By: #### 1 4979-9 ####[facility]ORATORYCLIA [id number] [place] [address] [place] ALLIED HEALTHon 08-12-2021 ALLIED HEALTH Normal [facility] ALLIED HEALTH Normal [facility] Basic metabolic 2000 panelon 08-12-2021 Anion gap [Moles/Vol] 7 mmol/L Low 9-18 [facility] Comment on above: Order Comment: Speci men Type: BLOOD SPECIMENOrdering Facility: [facility] Address: [address] [place] [address] Performed By: #### 2 4321-2, , 2776-05 ####[facility]ORATORYCLIA [id number] [address] STATES [place] [facility] Calcium [Mass/Vol] 8.8 mg/dL Normal 8.5-10.2 [facility] Comment on above: Order Comment: Speci men Type: BLOOD SPECIMENOrdering Facility: [facility] Address: [address] [place] [address] Performed By: #### 2 4321-2, , 2776-05 ####[facility]ORATORYCLIA [id number] [place], [place] [address] [place] [address] [place] Chloride [Moles/Vol] 96 mmol/L Low 97-105 [facility] Comment on above: Order Comment: Speci men Type: BLOOD SPECIMENOrdering Facility: [facility] Address: [address] [place] [address] Performed By: #### 2 4321-2, 24836-5, 2776- ####[facility]ORATORYCLIA [id number] [address] [place] [facility] CO2 [Moles/Vol] 32 mmol/L High 22-30 [facility] Comment on above: Order Comment: Speci men Type: BLOOD SPECIMENOrdering Facility: [facility] Address: [address] [place] [address] Performed By: #### 2 4321-2, , 2776-05 ####[facility]ORATORYCLIA [id number] [address] OF [facility] Creatinine [Mass/Vol] 0.52 mg/dL Low 0.73-1.22 [facility] Comment on above: Order Comment: Speci men Type: BLOOD SPECIMENOrdering Facility: [facility] Address: [address] [place] [address] Performed By: #### 2 4321-2, , 2776-05 ####[facility]ORATORYCLIA [id number] [address] ESTIMATED GLOMERULAR FILTRATION RATE 109 mL/min/1.73m??? Normal >=60 [facility] Comment on above: Order Comment: Speci men Type: BLOOD SPECIMENOrdering Facility: [facility] Address: [address] [place] [address] Result Comment: Luzmaria mated Glomerular Filtration Rate [...] 4321-2, , 2776-05 ####[facility]ORATORYCLIA [id number] [place] [address] [place] Glucose [Mass/Vol] 119 mg/dL High 74-99 [facility] Comment on above: Order Comment: Speci men Type: BLOOD SPECIMENOrdering Facility: [facility] Address: [address] [place], [place] [phone] Result Comment: The [place] [employer] (ADA) provides guidance for cutoff [...] Standards of Medical Care in Diabetes 2016, [place] [employer]. Diabetes Care. 2016.39(Suppl 1). Performed By: #### 2 4321-2, , 2776-05 ####[facility]ORATORYCLIA [id number] [place] [address] [place] Potassium [Moles/Vol] 3.7 mmol/L Normal 3.7-5.1 [facility] Comment on above: Order Comment: Speci men Type: BLOOD SPECIMENOrdering Facility: [facility] Address: [address] [phone] Performed By: #### 2 4321-2, , 2776-05 ####[facility] LABORATORYIA [id number] [place] [address] [place] Sodium [Moles/Vol] 135 mmol/L Low 136-144 [facility] Comment on above: Order Comment: Shira francia Type: BLOOD SPECIMENOrdering Facility: [facility] Address: [address] [phone] Performed By: #### 2 4321-2, 51412-1, 277-1 ####[facility]ORATORYCLIA [id number] [address] STATES [facility] Urea nitrogen [Mass/Vol] 20 mg/dL Normal 9-24 [facility] Comment on above: Order Comment: Speci men Type: BLOOD SPECIMENOrdering Facility: [facility] Address: [address] [place] [address] Performed By: #### 2 4321-2, , 2776-05 ####[facility]ORATORYCLIA [id number] [address] [facility] CASE MANAGEMon 08-12-2021 CASE MANAGEM Normal [facility] CBC W Auto Differential pane l (Bld)on 08-12-2021 Basophils (Bld) [#/Vol] 0.04 10*3/uL Normal <0.11 [facility] Comment on above: Order Comment: Speci men Type: BLOOD SPECIMENOrdering Facility: [facility] Address: [address] [place] [address] Performed By: #### 5 7021-8 ####[facility]ORATORYCLIA [id number] [address] Basophils/100 WBC (Bld) 0.5 % Normal [facility] Comment on above: Order Comment: Speci men Type: BLOOD SPECIMENOrdering Facility: [facility] Address: [address] [place] [address] Performed By: #### 5 7021-8 ####[facility]ORATORYCLIA [id number] [address] [place] Differential cell count method Nom (Bld) Auto Normal [facility] Comment on above: Order Comment: Speci men Type: BLOOD SPECIMENOrdering Facility: [facility] Address: [address] [place] [address] Performed By: #### 5 7021-8 ####[facility]ORATORYCLIA [id number] [address] [place] Eosinophils (Bld) [#/Vol] 0.19 10*3/uL Normal <0.46 [facility] Comment on above: Order Comment: Speci men Type: BLOOD SPECIMENOrdering Facility: [facility] Address: [address] [place] [address] Performed By: #### 5 7021-8 ####[facility]ORATORYCLIA [id number] [address] [place] Eosinophils/100 WBC (Bld) 2.3 % Normal [facility] Comment on above: Order Comment: Speci men Type: BLOOD SPECIMENOrdering Facility: [facility] Address: [address] [place] [address] Performed By: #### 5 7021-8 ####[facility]ORATORYCLIA [id number] [address] Erythrocyte distribution width (RBC) [Ratio] 17.1 % High 11.5-15.0 [facility] Comment on above: Order Comment: Speci men Type: BLOOD SPECIMENOrdering Facility: [facility] Address: [address] [place] [address] Performed By: #### 5 7021-8 ####[facility]ORATORYCLIA [id number] [address] [place] Hematocrit (Bld) [Volume fraction] 25.3 % Low 39.0-51.0 [facility] Comment on above: Order Comment: Speci men Type: BLOOD SPECIMENOrdering Facility: [facility] Address: [address] [place] [address] Performed By: #### 5 7021-8 ####[facility]ORATORYCLIA [id number] [address] [place] Hemoglobin (Bld) [Mass/Vol] 7.9 g/dL Low 13.0-17.0 [facility] Comment on above: Order Comment: Speci men Type: BLOOD SPECIMENOrdering Facility: [facility] Address: [address] [place] [address] Performed By: #### 5 7021-8 ####[facility] LABORATORYCLIA [id number] [address] IMMATURE GRAN % 0.5 % Normal [facility] Comment on above: Order Comment: Speci men Type: BLOOD SPECIMENOrdering Facility: [facility] Address: [address] [place] [address] Performed By: #### 5 7021-8 ####[facility]ATORYCLIA [id number] [address] IMMATURE GRAN ABS 0.04 k/uL Normal <0.10 [facility] Comment on above: Order Comment: Speci men Type: BLOOD SPECIMENOrdering Facility: [facility] Address: [address] [place] [address] Performed By: #### 5 7021-8 ####[facility]ORATORYCLIA [id number] [address] Lymphocytes (Bld) [#/Vol] 1.69 10*3/uL Normal 1.00-4.00 [facility] Comment on above: Order Comment: Speci men Type: BLOOD SPECIMENOrdering Facility: [facility] Address: [address] [place] [address] Performed By: #### 5 7021-8 ####[facility]ORATORYCLIA [id number] [address] Lymphocytes/100 WBC (Bld) 20.1 % Normal [facility] Comment on above: Order Comment: Speci men Type: BLOOD SPECIMENOrdering Facility: [facility] Address: [address] [place] [address] Performed By: #### 5 7021-8 ####[facility]ORATORYCLIA [id number] [address] MCH (RBC) [Entitic mass] 28.5 pg Normal 26.0-34.0 [facility] Comment on above: Order Comment: Speci men Type: BLOOD SPECIMENOrdering Facility: [facility] Address: [address] [place] [address] Performed By: #### 5 7021-8 ####[facility]ORATORYCLIA [id number] [address] STATES [facility] MCHC (RBC) [Mass/Vol] 31.2 g/dL Normal 30.5-36.0 [facility] Comment on above: Order Comment: Speci men Type: BLOOD SPECIMENOrdering Facility: [facility] Address: [address] [place] [address] Performed By: #### 5 7021-8 ####[facility]ORATORYCLIA [id number] [address] OF [facility] MCV (RBC) [Entitic vol] 91.3 fL Normal 80.0-100.0 [facility] Comment on above: Order Comment: Speci men Type: BLOOD SPECIMENOrdering Facility: [facility] Address: [address] [place] [address] Performed By: #### 5 7021-8 ####[facility]ORATORYCLIA [id number] [address] [place] [facility] Monocytes (Bld) [#/Vol] 0.53 10*3/uL Normal <0.87 [facility] Comment on above: Order Comment: Speci men Type: BLOOD SPECIMENOrdering Facility: [facility] Address: [address] [place] [address] Performed By: #### 5 7021-8 ####[facility]ATORYCLIA [id number] [address] Monocytes/100 WBC (Bld) 6.3 % Normal [facility] Comment on above: Order Comment: Speci men Type: BLOOD SPECIMENOrdering Facility: [facility] Address: [address] [place] [address] Performed By: #### 5 7021-8 ####[facility]ORATORYCLIA [id number] [address] [place] Neutrophils (Bld) [#/Vol] 5.90 10*3/uL Normal 1.45-7.50 [facility] Comment on above: Order Comment: Speci men Type: BLOOD SPECIMENOrdering Facility: [facility] Address: [address] [place] [address] Performed By: #### 5 7021-8 ####[facility]ATORYCLIA [id number] [address] Neutrophils/100 WBC (Bld) 70.3 % Normal [facility] Comment on above: Order Comment: Speci men Type: BLOOD SPECIMENOrdering Facility: [facility] Address: [address] [place] [address] Performed By: #### 5 7021-8 ####[facility]ORATORYCLIA [id number] [address] [place] Nucleated RBC (Bld) [#/Vol] 10*3/uL Normal <0.01 [facility] Comment on above: Order Comment: Speci men Type: BLOOD SPECIMENOrdering Facility: [facility] Address: [address] [place] [address] Performed By: #### 5 7021-8 ####[facility]ATORYCLIA [id number] [address] Nucleated RBC/100 WBC (Bld) [Ratio] 0.0 /100 WBC Normal [facility] Comment on above: Order Comment: Speci men Type: BLOOD SPECIMENOrdering Facility: [facility] Address: [address] [place] [address] Performed By: #### 5 7021-8 ####[facility]ATORYCLIA [id number] [address] [place] Platelet mean volume (Bld) [Entitic vol] 9.8 fL Normal 9.0-12.7 [facility] Comment on above: Order Comment: Speci men Type: BLOOD SPECIMENOrdering Facility: [facility] Address: [address] [place] [address] Performed By: #### 5 7021-8 ####[facility]ATORYCLIA [id number] [address] [place] Platelets (Bld) [#/Vol] 164 10*3/uL Normal 150-400 [facility] Comment on above: Order Comment: Speci men Type: BLOOD SPECIMENOrdering Facility: [facility] Address: [address] [place] [address] Performed By: #### 5 7021-8 ####[facility]ORATORYCLIA [id number] [place] [address] [place] RBC (Bld) [#/Vol] 2.77 10*6/uL Low 4.20-6.00 [facility] Comment on above: Order Comment: Speci men Type: BLOOD SPECIMENOrdering Facility: [facility] Address: [address] [place] [address] Performed By: #### 5 7021-8 ####[facility]ORATORYCLIA [id number] [address] [facility] WBC (Bld) [#/Vol] 8.39 10*3/uL Normal 3.70-11.00 [facility] Comment on above: Order Comment: Speci men Type: BLOOD SPECIMENOrdering Facility: [facility] Address: [address] [place] [address] Performed By: #### 5 7021-8 ####[facility]ORATORYCLIA [id number] [address] [place] BRAIN WO IVCONon 08-13-19 CT BRAIN WO IVCON Normal [facility] CT BRAIN WO IVCON Normal [facility] Magnesium SerPl-mCncon 08-12 Magnesium [Mass/Vol] 2.0 mg/dL Normal 1.7-2.3 [facility] Comment on above: Order Comment: Speci men Type: BLOOD SPECIMENOrdering Facility: [facility] Address: [address] [place] [address] Performed By: #### 2 4321-2, 33657-2, 2777-1 ####[facility]ORATORYCLIA [id number] [address] Phosphate SerPl-mCncon 08-12 Phosphate [Mass/Vol] 2.9 mg/dL Normal 2.7-4.8 [facility] Comment on above: Order Comment: Speci men Type: BLOOD SPECIMENOrdering Facility: [facility] Address: [address] [place] [address] Performed By: #### 2 4321-2, 76012-3, 2777-1 ####[facility]ATORYCLIA [id number] [address] THERAPY NTon 08-12-2021 THERAPY NT Normal [facility] THERAPY NT Normal [facility] aPTT PPPon 08-12-2021 aPTT Coag (PPP) [Time] 94.2 s High 23.0-32.4 [facility] Comment on above: Order Comment: Speci men Type: BLOOD SPECIMENOrdering Facility: [facility] Address: [address] [place] [address] Performed By: #### 1 4979-9 ####[facility]ORATORYCLIA [id number] [address] aPTT Coag (PPP) [Time] 84.4 s High 23.0-32.4 [facility] Comment on above: Order Comment: Speci men Type: BLOOD SPECIMENOrdering Facility: [facility] Address: [address] [place] [address] Performed By: #### 1 4979-9 ####[facility]ATORYCLIA [id number] [address] aPTT Coag (PPP) [Time] 71.3 s High 23.0-32.4 [facility] Comment on above: Order Comment: Speci men Type: BLOOD SPECIMENOrdering Facility: [facility] Address: [address] [place] [address] Performed By: #### 1 4979-9 ####[facility]ORATORYCLIA [id number] [place] [address] [place] ALLIED HEALTHon 08-11-2021 ALLIED HEALTH Normal [facility] CBC W Auto Differential pane l (Bld)on 08-11-2021 Basophils (Bld) [#/Vol] 10*3/uL Normal <0.11 [facility] Comment on above: Order Comment: Speci men Type: BLOOD SPECIMENOrdering Facility: [facility] Address: [address] [place] [address] Performed By: #### 5 7021-8 ####[facility]ORATORYCLIA [id number] [address] [place] Basophils/100 WBC (Bld) 0.2 % Normal [facility] Comment on above: Order Comment: Speci men Type: BLOOD SPECIMENOrdering Facility: [facility] Address: [address] [place] [address] Performed By: #### 5 7021-8 ####[facility]ORATORYCLIA [id number] [address] [place] Differential cell count method Nom (Bld) Auto Normal [facility] Comment on above: Order Comment: Speci men Type: BLOOD SPECIMENOrdering Facility: [facility] Address: [address] [place] [address] Performed By: #### 5 7021-8 ####[facility]ORATORYCLIA [id number] [place] [address] [place] Eosinophils (Bld) [#/Vol] 0.16 10*3/uL Normal <0.46 [facility] Comment on above: Order Comment: Speci men Type: BLOOD SPECIMENOrdering Facility: [facility] Address: [address] [place] [address] Performed By: #### 5 7021-8 ####[facility]ORATORYCLIA [id number] [address] [place] Eosinophils/100 WBC (Bld) 1.8 % Normal [facility] Comment on above: Order Comment: Speci men Type: BLOOD SPECIMENOrdering Facility: [facility] Address: [address] [place] [address] Performed By: #### 5 7021-8 ####[facility]ORATORYCLIA [id number] [address] Erythrocyte distribution width (RBC) [Ratio] 17.3 % High 11.5-15.0 [facility] Comment on above: Order Comment: Speci men Type: BLOOD SPECIMENOrdering Facility: [facility] Address: [address] [place] [address] Performed By: #### 5 7021-8 ####[facility]ORATORYCLIA [id number] [address] Hematocrit (Bld) [Volume fraction] 26.6 % Low 39.0-51.0 [facility] Comment on above: Order Comment: Speci men Type: BLOOD SPECIMENOrdering Facility: [facility] Address: [address] [place] [address] Performed By: #### 5 7021-8 ####[facility]ORATORYCLIA [id number] [address] Hemoglobin (Bld) [Mass/Vol] 8.2 g/dL Low 13.0-17.0 [facility] Comment on above: Order Comment: Speci men Type: BLOOD SPECIMENOrdering Facility: [facility] Address: [address] [place] [address] Performed By: #### 5 7021-8 ####[facility] LABORATORYCLIA [id number] [address] IMMATURE GRAN % 0.6 % Normal [facility] Comment on above: Order Comment: Speci men Type: BLOOD SPECIMENOrdering Facility: [facility] Address: [address] [place] [address] Performed By: #### 5 7021-8 ####[facility] LABORATORYCLIA [id number] [address] IMMATURE GRAN ABS 0.05 k/uL Normal <0.10 [facility] Comment on above: Order Comment: Speci men Type: BLOOD SPECIMENOrdering Facility: [facility] Address: [address] [place] [address] Performed By: #### 5 7021-8 ####[facility] LABORATORYCLIA [id number] [address] Lymphocytes (Bld) [#/Vol] 1.40 10*3/uL Normal 1.00-4.00 [facility] Comment on above: Order Comment: Speci men Type: BLOOD SPECIMENOrdering Facility: [facility] Address: [address] [place] [address] Performed By: #### 5 7021-8 ####[facility] LABORATORYCLIA [id number] [address] Lymphocytes/100 WBC (Bld) 15.8 % Normal [facility] Comment on above: Order Comment: Speci men Type: BLOOD SPECIMENOrdering Facility: [facility] Address: [address] [place] [address] Performed By: #### 5 7021-8 ####[facility] LABORATORYCLIA [id number] [address] STATES [facility] MCH (RBC) [Entitic mass] 28.4 pg Normal 26.0-34.0 [facility] Comment on above: Order Comment: Speci men Type: BLOOD SPECIMENOrdering Facility: [facility] Address: [address] [place] [address] Performed By: #### 5 7021-8 ####[facility] LABORATORYCLIA [id number] [address] STATES [facility] MCHC (RBC) [Mass/Vol] 30.8 g/dL Normal 30.5-36.0 [facility] Comment on above: Order Comment: Speci men Type: BLOOD SPECIMENOrdering Facility: [facility] Address: [address] [place] [address] Performed By: #### 5 7021-8 ####[facility] LABORATORYCLIA [id number] [place] [address] [place] MCV (RBC) [Entitic vol] 92.0 fL Normal 80.0-100.0 [facility] Comment on above: Order Comment: Speci men Type: BLOOD SPECIMENOrdering Facility: [facility] Address: [address] [place] [address] Performed By: #### 5 7021-8 ####[facility] LABORATORYCLIA [id number] [place] [address] [place] Monocytes (Bld) [#/Vol] 0.61 10*3/uL Normal <0.87 [facility] Comment on above: Order Comment: Speci men Type: BLOOD SPECIMENOrdering Facility: [facility] Address: [address] [place] [address] Performed By: #### 5 7021-8 ####[facility] LABORATORYCLIA [id number] [address] STATES [facility] Monocytes/100 WBC (Bld) 6.9 % Normal [facility] Comment on above: Order Comment: Speci men Type: BLOOD SPECIMENOrdering Facility: [facility] Address: [address] [place] [address] Performed By: #### 5 7021-8 ####[facility] LABORATORYCLIA [id number] [place] [address] [place] Neutrophils (Bld) [#/Vol] 6.62 10*3/uL Normal 1.45-7.50 [facility] Comment on above: Order Comment: Speci men Type: BLOOD SPECIMENOrdering Facility: [facility] Address: [address] [place] [address] Performed By: #### 5 7021-8 ####[facility]ORATORYCLIA [id number] [address] [place] Neutrophils/100 WBC (Bld) 74.7 % Normal [facility] Comment on above: Order Comment: Speci men Type: BLOOD SPECIMENOrdering Facility: [facility] Address: [address] [address] Performed By: #### 5 7021-8 ####[facility]ORATORYCLIA [id number] [address] Nucleated RBC (Bld) [#/Vol] 10*3/uL Normal <0.01 [facility] Comment on above: Order Comment: Speci men Type: BLOOD SPECIMENOrdering Facility: [facility] Address: [address] [place] [address] Performed By: #### 5 7021-8 ####[facility] LABORATORYCLIA [id number] [address] Nucleated RBC/100 WBC (Bld) [Ratio] 0.0 /100 WBC Normal [facility] Comment on above: Order Comment: Speci men Type: BLOOD SPECIMENOrdering Facility: [facility] Address: [address] [place] [address] Performed By: #### 5 7021-8 ####[facility] LABORATORYCLIA [id number] [address] [place] Platelet mean volume (Bld) [Entitic vol] 9.8 fL Normal 9.0-12.7 [facility] Comment on above: Order Comment: Speci men Type: BLOOD SPECIMENOrdering Facility: [facility] Address: [address] [place] [address] Performed By: #### 5 7021-8 ####[facility]ORATORYCLIA [id number] [address] Platelets (Bld) [#/Vol] 157 10*3/uL Normal 150-400 [facility] Comment on above: Order Comment: Speci men Type: BLOOD SPECIMENOrdering Facility: [facility] Address: [address] [place] [address] Performed By: #### 5 7021-8 ####[facility] LABORATORYCLIA [id number] [address] [place] RBC (Bld) [#/Vol] 2.89 10*6/uL Low 4.20-6.00 [facility] Comment on above: Order Comment: Speci men Type: BLOOD SPECIMENOrdering Facility: [facility] Address: [address] [place] [address] Performed By: #### 5 7021-8 ####[facility] LABORATORYCLIA [id number] [place] [address] [place] WBC (Bld) [#/Vol] 8.86 10*3/uL Normal 3.70-11.00 [facility] Comment on above: Order Comment: Speci men Type: BLOOD SPECIMENOrdering Facility: [facility] Address: [address] [place] [address] Performed By: #### 5 7021-8 ####[facility]ORATORYCLIA [id number] [address] OF [facility] CBC panel Auto (Bld)on 08-11 Erythrocyte distribution width (RBC) [Ratio] 17.2 % High 11.5-15.0 [facility] Comment on above: Order Comment: Speci men Type: BLOOD SPECIMENOrdering Facility: [facility] Address: [address] [place] [address] Performed By: #### 5 8410-2 ####[facility]ORATORYCLIA [id number] [address] [place] Hematocrit (Bld) [Volume fraction] 27.0 % Low 39.0-51.0 [facility] Comment on above: Order Comment: Speci men Type: BLOOD SPECIMENOrdering Facility: [facility] Address: [address] [place] [address] Performed By: #### 5 8410-2 ####[facility] LABORATORYCLIA [id number] [address] Hemoglobin (Bld) [Mass/Vol] 8.3 g/dL Low 13.0-17.0 [facility] Comment on above: Order Comment: Speci men Type: BLOOD SPECIMENOrdering Facility: [facility] Address: [address] [place] [address] Performed By: #### 5 8410-2 ####[facility] LABORATORYCLIA [id number] [address] MCH (RBC) [Entitic mass] 28.7 pg Normal 26.0-34.0 [facility] Comment on above: Order Comment: Speci men Type: BLOOD SPECIMENOrdering Facility: [facility] Address: [address] [place] [address] Performed By: #### 5 8410-2 ####[facility]ORATORYCLIA [id number] [address] MCHC (RBC) [Mass/Vol] 30.7 g/dL Normal 30.5-36.0 [facility] Comment on above: Order Comment: Speci men Type: BLOOD SPECIMENOrdering Facility: [facility] Address: [address] [place] [address] Performed By: #### 5 8410-2 ####[facility]ORATORYCLIA [id number] [address] [place] [facility] MCV (RBC) [Entitic vol] 93.4 fL Normal 80.0-100.0 [facility] Comment on above: Order Comment: Speci men Type: BLOOD SPECIMENOrdering Facility: [facility] Address: [address] [place] [address] Performed By: #### 5 8410-2 ####[facility]ORATORYCLIA [id number] [address] Nucleated RBC (Bld) [#/Vol] 10*3/uL Normal <0.01 [facility] Comment on above: Order Comment: Speci men Type: BLOOD SPECIMENOrdering Facility: [facility] Address: [address] [place] [address] Performed By: #### 5 8410-2 ####[facility]ORATORYCLIA [id number] [address] Platelet mean volume (Bld) [Entitic vol] 9.8 fL Normal 9.0-12.7 [facility] Comment on above: Order Comment: Speci men Type: BLOOD SPECIMENOrdering Facility: [facility] Address: [address] [place] [address] Performed By: #### 5 8410-2 ####[facility]ORATORYCLIA [id number] [address] Platelets (Bld) [#/Vol] 169 10*3/uL Normal 150-400 [facility] Comment on above: Order Comment: Speci men Type: BLOOD SPECIMENOrdering Facility: [facility] Address: [address] [place] [address] Performed By: #### 5 8410-2 ####[facility]ORATORYCLIA [id number] [address] [place] [facility] RBC (Bld) [#/Vol] 2.89 10*6/uL Low 4.20-6.00 [facility] Comment on above: Order Comment: Speci men Type: BLOOD SPECIMENOrdering Facility: [facility] Address: [address] [place] [address] Performed By: #### 5 8410-2 ####[facility]ORATORYCLIA [id number] [address] WBC (Bld) [#/Vol] 9.03 10*3/uL Normal 3.70-11.00 [facility] Comment on above: Order Comment: Speci men Type: BLOOD SPECIMENOrdering Facility: [facility] Address: [address] [place] [address] Performed By: #### 5 8410-2 ####[facility]ORATORYCLIA [id number] [address] BRAIN WO IVCONon 08-12-19 CT BRAIN WO IVCON Normal [facility] PT panel Coag (PPP)on 2021 INR Coag (PPP) [Relative time] 1.0 {INR} Normal 0.9-1.3 [facility] Comment on above: Order Comment: Shira feldman Type: BLOOD SPECIMENOrdering Facility: [facility] Address: [address] [phone] Result Comment: Yris min K Antagonist (VKA) Therapeutic Range: INR 2 to 3 (Target INR of 2.5)Note: For patients treated with VKA drugs, such as warfarin, the [place] [employer] 2012 Guideline recommends [...] al. Chest 2012, 141:7S-47SNishimura RA, et al. [facility] 2017, 70: 252-289 Performed By: #### 1 4979-9, 31244-3 ####[facility] LABORATORYCLIA [id number] [place] [address] [place] PT Coag (PPP) [Time] 11.4 s Normal 9.7-13.0 [facility] Comment on above: Order Comment: Shira feldman Type: BLOOD SPECIMENOrdering Facility: [facility] Address: [address] [phone] Performed By: #### 1 4979-9, 56074-9 ####[facility]ORATORYCLIA [id number] [place] [address] [place] THERAPY NTon 08-11-2021 THERAPY NT Normal [facility] US DVT LOWER BILon 2 US DVT LOWER RAINER Normal [facility] US DVT UPPER BILon 2 US DVT UPPER RAINER Normal [facility] aPTT PPPon 08-11-2021 aPTT Coag (PPP) [Time] 26.9 s Normal 23.0-32.4 [facility] Comment on above: Order Comment: Speci men Type: BLOOD SPECIMENOrdering Facility: [facility] Address: [address] [place] [address] Performed By: #### 1 4979-9, 47038-2 ####[facility]ORATORYCLIA [id number] [place] [address] [place] Basic metabolic 2000 panelon 08-10-2021 Anion gap [Moles/Vol] 11 mmol/L Normal 9-18 [facility] Comment on above: Order Comment: Speci men Type: BLOOD SPECIMENOrdering Facility: [facility] Address: [address] [place] [address] Performed By: #### 2 4321-2 ####[facility]ORATORYCLIA [id number] [place] [address] [place] Calcium [Mass/Vol] 8.7 mg/dL Normal 8.5-10.2 [facility] Comment on above: Order Comment: Speci men Type: BLOOD SPECIMENOrdering Facility: [facility] Address: [address] [place] [address] Performed By: #### 2 4321-2 ####[facility] LABORATORYCLIA [id number] [address] [place] Chloride [Moles/Vol] 98 mmol/L Normal 97-105 [facility] Comment on above: Order Comment: Speci men Type: BLOOD SPECIMENOrdering Facility: [facility] Address: [address] [place] [address] Performed By: #### 2 4321-2 ####[facility]ORATORYCLIA [id number] [place] [address] [place] CO2 [Moles/Vol] 28 mmol/L Normal 22-30 [facility] Comment on above: Order Comment: Speci men Type: BLOOD SPECIMENOrdering Facility: [facility] Address: [address] [place] [address] Performed By: #### 2 4321-2 ####[facility] LABORATORYCLIA [id number] [address] [place] [facility] Creatinine [Mass/Vol] 0.59 mg/dL Low 0.73-1.22 [facility] Comment on above: Order Comment: Johncara feldman Type: BLOOD SPECIMENOrdering Facility: [facility] Address: [address] [place] [address] Performed By: #### 2 4321-2 ####[facility]ORATORYCLIA [id number] [address] ESTIMATED GLOMERULAR FILTRATION RATE 105 mL/min/1.73m??? Normal >=60 [facility] Comment on above: Order Comment: Shira feldman Type: BLOOD SPECIMENOrdering Facility: [facility] Address: [address] [place] [address] Result Comment: Luzmaria mated Glomerular Filtration Rate [...] GFR. Performed By: #### 2 4321-2 ####[facility]ITALIA [id number] [address] [place] [facility] Glucose [Mass/Vol] 118 mg/dL High 74-99 [facility] Comment on above: Order Comment: Shira francia Type: BLOOD SPECIMENOrdering Facility: [facility] Address: [address] [place] [address] Result Comment: The [place] [employer] (ADA) provides guidance for cutoff [...] Standards of Medical Care in Diabetes 2016, [place] [employer]. Diabetes Care. 2016.39(Suppl 1). Performed By: #### 2 4321-2 ####[facility] LABORATORYCLIA [id number] [address] [place] Potassium [Moles/Vol] 3.7 mmol/L Normal 3.7-5.1 [facility] Comment on above: Order Comment: Speci men Type: BLOOD SPECIMENOrdering Facility: [facility] Address: [address] [place] [address] Performed By: #### 2 4321-2 ####[facility]ORATORYCLIA [id number] [address] [place] [facility] Sodium [Moles/Vol] 137 mmol/L Normal 136-144 [facility] Comment on above: Order Comment: Speci men Type: BLOOD SPECIMENOrdering Facility: [facility] Address: [address] [place] [address] Performed By: #### 2 4321-2 ####[facility] LABORATORYCLIA [id number] [address] STATES [facility] Urea nitrogen [Mass/Vol] 23 mg/dL Normal 9-24 [facility] Comment on above: Order Comment: Speci men Type: BLOOD SPECIMENOrdering Facility: [facility] Address: [address] [place] [address] Performed By: #### 2 4321-2 ####[facility]ORATORYCLIA [id number] [address] [place] Anion gap [Moles/Vol] 17 mmol/L Normal 9-18 [facility] Comment on above: Order Comment: Speci men Type: BLOOD SPECIMENOrdering Facility: [facility] Address: [address] [place] [address] Performed By: #### 1 9123-9, 2777-1, 61641-4 ####[facility]ORATORYCLIA [id number] [address] [place] [facility] Calcium [Mass/Vol] 7.7 mg/dL Low 8.5-10.2 [facility] Comment on above: Order Comment: Speci men Type: BLOOD SPECIMENOrdering Facility: [facility] Address: [address] [place] [address] Performed By: #### 1 9123-9, 2777-1, 31906-0 ####[facility]ORATORYCLIA [id number] [place] [address] [place] Chloride [Moles/Vol] 86 mmol/L Low 97-105 [facility] Comment on above: Order Comment: Speci men Type: BLOOD SPECIMENOrdering Facility: [facility] Address: [address] [place] [address] Performed By: #### 1 9123-9, 2776-05, 27110-4 ####[facility]ORATORYCLIA [id number] [address] [place] [facility] CO2 [Moles/Vol] 24 mmol/L Normal 22-30 [facility] Comment on above: Order Comment: Speci men Type: BLOOD SPECIMENOrdering Facility: [facility] Address: [address] [place] [address] Performed By: #### 1 9123-9, 2776-05, 19766-3 ####[facility]ORATORYCLIA [id number] [address] [place] [facility] Creatinine [Mass/Vol] 0.53 mg/dL Low 0.73-1.22 [facility] Comment on above: Order Comment: Speci men Type: BLOOD SPECIMENOrdering Facility: [facility] Address: [address] [place] [address] Performed By: #### 1 9123-9, 27711-04, 00352-4 ####[facility]ORATORYCLIA [id number] [address] OF [facility] ESTIMATED GLOMERULAR FILTRATION RATE 108 mL/min/1.73m??? Normal >=60 [facility] Comment on above: Order Comment: Speci men Type: BLOOD SPECIMENOrdering Facility: [facility] Address: [address] [phone] Result Comment: Luzmaria mated Glomerular Filtration Rate [...] GFR. Performed By: #### 1 9123-9, 2777-1, 14912-7 ####[facility]ITALCLIA [id number] [place] [address] [place] Glucose [Mass/Vol] 455 mg/dL High 74-99 [facility] Comment on above: Order Comment: Shira feldman Type: BLOOD SPECIMENOrdering Facility: [facility] Address: [address] [place] [address] Result Comment: The [place] [employer] (ADA) provides guidance for cutoff [...] Standards of Medical Care in Diabetes 2016, [place] [employer]. Diabetes Care. 2016.39(Suppl 1). Performed By: #### 1 9123-9, 2777-1, 57344-0 ####[facility]ORATORYCLIA [id number] [place] [address] [place] Potassium [Moles/Vol] 3.4 mmol/L Low 3.7-5.1 [facility] Comment on above: Order Comment: Shira [facility] Type: BLOOD SPECIMENOrdering Facility: [facility] Address: [address] [phone] Performed By: #### 1 9123-9, 2777-, 90449-2 ####[facility]ORATORYCLIA [id number] [address] [place] Sodium [Moles/Vol] 127 mmol/L Low 136-144 [facility] Comment on above: Order Comment: Speci men Type: BLOOD SPECIMENOrdering Facility: [facility] Address: [address] [place] [address] Performed By: #### 1 9123-9, 2777, 30299-4 ####[facility]ORATORYCLIA [id number] [address] [place] Urea nitrogen [Mass/Vol] 21 mg/dL Normal 9-24 [facility] Comment on above: Order Comment: Speci men Type: BLOOD SPECIMENOrdering Facility: [facility] Address: [address] [place] [address] Performed By: #### 1 9123-9, 2777, ####[facility]ORATORYCLIA [id number] [address] [place] CASE MANAGEMon 08-10-2021 CASE MANAGEM Normal [facility] CBC W Auto Differential pane l (Bld)on 08-10-2021 Basophils (Bld) [#/Vol] 0.04 10*3/uL Normal <0.11 [facility] Comment on above: Order Comment: Speci men Type: BLOOD SPECIMENOrdering Facility: [facility] Address: [address] [place] [address] Performed By: #### 5 7021-8 ####[facility] LABORATORYCLIA [id number] [address] STATES [facility] Basophils/100 WBC (Bld) 0.4 % Normal [facility] Comment on above: Order Comment: Speci men Type: BLOOD SPECIMENOrdering Facility: [facility] Address: [address] [place] [address] Performed By: #### 5 7021-8 ####[facility]ORATORYCLIA [id number] [address] Differential cell count method Nom (Bld) Auto Normal [facility] Comment on above: Order Comment: Speci men Type: BLOOD SPECIMENOrdering Facility: [facility] Address: [address] [place] [address] Performed By: #### 5 7021-8 ####[facility]ORATORYCLIA [id number] [address] [place] Eosinophils (Bld) [#/Vol] 0.11 10*3/uL Normal <0.46 [facility] Comment on above: Order Comment: Speci men Type: BLOOD SPECIMENOrdering Facility: [facility] Address: [address] [place] [address] Performed By: #### 5 7021-8 ####[facility]ORATORYCLIA [id number] [address] Eosinophils/100 WBC (Bld) 1.1 % Normal [facility] Comment on above: Order Comment: Speci men Type: BLOOD SPECIMENOrdering Facility: [facility] Address: [address] [place] [address] Performed By: #### 5 7021-8 ####[facility] LABORATORYCLIA [id number] [address] Erythrocyte distribution width (RBC) [Ratio] 17.2 % High 11.5-15.0 [facility] Comment on above: Order Comment: Speci men Type: BLOOD SPECIMENOrdering Facility: [facility] Address: [address] [place] [address] Performed By: #### 5 7021-8 ####[facility]ORATORYCLIA [id number] [address] Hematocrit (Bld) [Volume fraction] 25.5 % Low 39.0-51.0 [facility] Comment on above: Order Comment: Speci men Type: BLOOD SPECIMENOrdering Facility: [facility] Address: [address] [place] [address] Performed By: #### 5 7021-8 ####[facility]ORATORYCLIA [id number] [address] [place] [facility] Hemoglobin (Bld) [Mass/Vol] 7.9 g/dL Low 13.0-17.0 [facility] Comment on above: Order Comment: Speci men Type: BLOOD SPECIMENOrdering Facility: [facility] Address: [address] [place] [address] Performed By: #### 5 7021-8 ####[facility]ORATORYCLIA [id number] [address] IMMATURE GRAN % 0.4 % Normal [facility] Comment on above: Order Comment: Speci men Type: BLOOD SPECIMENOrdering Facility: [facility] Address: [address] [place] [address] Performed By: #### 5 7021-8 ####[facility]ORATORYCLIA [id number] [address] IMMATURE GRAN ABS 0.04 k/uL Normal <0.10 [facility] Comment on above: Order Comment: Speci men Type: BLOOD SPECIMENOrdering Facility: [facility] Address: [address] [place] [address] Performed By: #### 5 7021-8 ####[facility]ORATORYCLIA [id number] [address] [place] Lymphocytes (Bld) [#/Vol] 1.66 10*3/uL Normal 1.00-4.00 [facility] Comment on above: Order Comment: Speci men Type: BLOOD SPECIMENOrdering Facility: [facility] Address: [address] [place] [address] Performed By: #### 5 7021-8 ####[facility] LABORATORYCLIA [id number] [address] Lymphocytes/100 WBC (Bld) 16.2 % Normal [facility] Comment on above: Order Comment: Speci men Type: BLOOD SPECIMENOrdering Facility: [facility] Address: [address] [place] [address] Performed By: #### 5 7021-8 ####[facility] LABORATORYCLIA [id number] [address] MCH (RBC) [Entitic mass] 28.5 pg Normal 26.0-34.0 [facility] Comment on above: Order Comment: Speci men Type: BLOOD SPECIMENOrdering Facility: [facility] Address: [address] [place] [address] Performed By: #### 5 7021-8 ####[facility] LABORATORYCLIA [id number] [address] MCHC (RBC) [Mass/Vol] 31.0 g/dL Normal 30.5-36.0 [facility] Comment on above: Order Comment: Speci men Type: BLOOD SPECIMENOrdering Facility: [facility] Address: [address] [place] [address] Performed By: #### 5 7021-8 ####[facility] LABORATORYCLIA [id number] [address] MCV (RBC) [Entitic vol] 92.1 fL Normal 80.0-100.0 [facility] Comment on above: Order Comment: Speci men Type: BLOOD SPECIMENOrdering Facility: [facility] Address: [address] [place] [address] Performed By: #### 5 7021-8 ####[facility] LABORATORYCLIA [id number] [address] Monocytes (Bld) [#/Vol] 0.51 10*3/uL Normal <0.87 [facility] Comment on above: Order Comment: Speci men Type: BLOOD SPECIMENOrdering Facility: [facility] Address: [address] [place] [address] Performed By: #### 5 7021-8 ####[facility] LABORATORYCLIA [id number] [address] Monocytes/100 WBC (Bld) 5.0 % Normal [facility] Comment on above: Order Comment: Speci men Type: BLOOD SPECIMENOrdering Facility: [facility] Address: [address] [place] [address] Performed By: #### 5 7021-8 ####[facility] LABORATORYCLIA [id number] [address] [place] Neutrophils (Bld) [#/Vol] 7.91 10*3/uL High 1.45-7.50 [facility] Comment on above: Order Comment: Speci men Type: BLOOD SPECIMENOrdering Facility: [facility] Address: [address] [place] [address] Performed By: #### 5 7021-8 ####[facility]ORATORYCLIA [id number] [address] [place] Neutrophils/100 WBC (Bld) 76.9 % Normal [facility] Comment on above: Order Comment: Speci men Type: BLOOD SPECIMENOrdering Facility: [facility] Address: [address] [place] [address] Performed By: #### 5 7021-8 ####[facility] LABORATORYCLIA [id number] [address] [place] Nucleated RBC (Bld) [#/Vol] 10*3/uL Normal <0.01 [facility] Comment on above: Order Comment: Speci men Type: BLOOD SPECIMENOrdering Facility: [facility] Address: [address] [place] [address] Performed By: #### 5 7021-8 ####[facility] LABORATORYCLIA [id number] [address] [place] Nucleated RBC/100 WBC (Bld) [Ratio] 0.0 /100 WBC Normal [facility] Comment on above: Order Comment: Speci men Type: BLOOD SPECIMENOrdering Facility: [facility] Address: [address] [place] [address] Performed By: #### 5 7021-8 ####[facility] LABORATORYCLIA [id number] [address] [place] Platelet mean volume (Bld) [Entitic vol] 10.3 fL Normal 9.0-12.7 [facility] Comment on above: Order Comment: Speci men Type: BLOOD SPECIMENOrdering Facility: [facility] Address: [address] [place] [address] Performed By: #### 5 7021-8 ####[facility] LABORATORYCLIA [id number] [place] [address] [place] Platelets (Bld) [#/Vol] 152 10*3/uL Normal 150-400 [facility] Comment on above: Order Comment: Speci men Type: BLOOD SPECIMENOrdering Facility: [facility] Address: [address] [place] [address] Performed By: #### 5 7021-8 ####[facility] LABORATORYCLIA [id number] [address] STATES OF [facility] RBC (Bld) [#/Vol] 2.77 10*6/uL Low 4.20-6.00 [facility] Comment on above: Order Comment: Speci men Type: BLOOD SPECIMENOrdering Facility: [facility] Address: [address] [place] [address] Performed By: #### 5 7021-8 ####[facility] LABORATORYCLIA [id number] [address] [place] WBC (Bld) [#/Vol] 10.27 10*3/uL Normal 3.70-11.00 [facility] Comment on above: Order Comment: Speci men Type: BLOOD SPECIMENOrdering Facility: [facility] Address: [address] [place] [address] Performed By: #### 5 7021-8 ####[facility] LABORATORYCLIA [id number] [address] [place] Magnesium SerPl-mCncon 08-10 Magnesium [Mass/Vol] 1.8 mg/dL Normal 1.7-2.3 [facility] Comment on above: Order Comment: Speci men Type: BLOOD SPECIMENOrdering Facility: [facility] Address: [facility] [place] [address] Performed By: #### 1 9123-9, 2777-1, 06728-6 ####[facility] LABORATORYCLIA [id number] [address] OF [facility] NURSING PROGon 08-10-2021 NURSING PROG Normal [facility] NURSING PROG Normal [facility] NUTRITIONon 08-10-2021 NUTRITION Normal [facility] Phosphate SerPl-mCncon 08-10 Phosphate [Mass/Vol] 3.7 mg/dL Normal 2.7-4.8 [facility] Comment on above: Order Comment: Speci men Type: BLOOD SPECIMENOrdering Facility: [facility] Address: [address] [place] [address] Performed By: #### 1 9123-9, 2777, 42640-6 ####[facility] LABORATORYCLIA [id number] [address] [place] ALLIED HEALTHon 08-09-2021 [...] Type: BLOOD SPECIMENOrdering Facility: [facility] Address: [facility] [place] [address] Performed By: #### 2 4321-2, 79742-7, 2777-1 ####[facility] LABORATORYCLIA [id number] [address] [place] Calcium [Mass/Vol] 9.2 mg/dL Normal 8.5-10.2 [facility] Comment on above: Order Comment: Speci men Type: BLOOD SPECIMENOrdering Facility: [facility] Address: [address] [place] [address] Performed By: #### 2 4321-2, , 2776-05 ####[facility] LABORATORYCLIA [id number] [place] [address] [place] Chloride [Moles/Vol] 97 mmol/L Normal 97-105 [facility] Comment on above: Order Comment: Speci men Type: BLOOD SPECIMENOrdering Facility: [facility] Address: [address] [place] [address] Performed By: #### 2 4321-2, , 2776-05 ####[facility] LABORATORYCLIA [id number] [address] [place] CO2 [Moles/Vol] 30 mmol/L Normal 22-30 [facility] Comment on above: Order Comment: Speci men Type: BLOOD SPECIMENOrdering Facility: [facility] Address: [address] [place] [address] Performed By: #### 2 4321-2, , 2776-05 ####[facility] LABORATORYCLIA [id number] [address] [place] Creatinine [Mass/Vol] 0.51 mg/dL Low 0.73-1.22 [facility] Comment on above: Order Comment: Speci men Type: BLOOD SPECIMENOrdering Facility: [facility] Address: [address] [place] [address] Performed By: #### 2 4321-2, , 2776-05 ####[facility] LABORATORYCLIA [id number] [address] ESTIMATED GLOMERULAR FILTRATION RATE 110 mL/min/1.73m??? Normal >=60 [facility] Comment on above: Order Comment: Speci men Type: BLOOD SPECIMENOrdering Facility: [facility] Address: [address] [place] [address] Result Comment: Luzmaria mated Glomerular Filtration Rate [...] By: #### 2 4321-2, , 2776-05 ####[facility]OSPITALIA [id number] [place] [address] [place] Glucose [Mass/Vol] 106 mg/dL High 74-99 [facility] Comment on above: Order Comment: Shira feldman Type: BLOOD SPECIMENOrdering Facility: [facility] Address: [address] [place], [place] [address] Result Comment: The [place] [employer] (ADA) provides guidance for cutoff [...] Standards of Medical Care in Diabetes 2016, [place] [employer]. Diabetes Care. 2016.39(Suppl 1). Performed By: #### 2 4321-2, , 2776-05 ####[facility] LABORATORYIA [id number] [place] [address] [place] Potassium [Moles/Vol] 4.1 mmol/L Normal 3.7-5.1 [facility] Comment on above: Order Comment: Shira feldman Type: BLOOD SPECIMENOrdering Facility: [facility] Address: [address] [place] [id number] Performed By: #### 2 4321-2, , 2776-05 ####[facility] LABORATORYCLIA [id number] [place] [address] [place] Sodium [Moles/Vol] 135 mmol/L Low 136-144 [facility] Comment on above: Order Comment: Speci men Type: BLOOD SPECIMENOrdering Facility: [facility] Address: [address] [place] [address] Performed By: #### 2 4321-2, , 2776-05 ####[facility] LABORATORYCLIA [id number] [place] [address] [place] Urea nitrogen [Mass/Vol] 26 mg/dL High 9-24 [facility] Comment on above: Order Comment: Speci men Type: BLOOD SPECIMENOrdering Facility: [facility] Address: [address] [place] [address] Performed By: #### 2 4321-2, , 2776-05 ####[facility] LABORATORYCLIA [id number] [address] [place] CBC W Auto Differential pane l (Bld)on 08-09-2021 Basophils (Bld) [#/Vol] 0.06 10*3/uL Normal <0.11 [facility] Comment on above: Order Comment: Speci men Type: BLOOD SPECIMENOrdering Facility: [facility] Address: [address] [place] [address] Performed By: #### 5 7021-8 ####[facility] LABORATORYCLIA [id number] [address] [place] Basophils/100 WBC (Bld) 0.5 % Normal [facility] Comment on above: Order Comment: Speci men Type: BLOOD SPECIMENOrdering Facility: [facility] Address: [address] [place] [address] Performed By: #### 5 7021-8 ####[facility] LABORATORYCLIA [id number] [address] [place] Differential cell count method Nom (Bld) Auto Normal [facility] Comment on above: Order Comment: Speci men Type: BLOOD SPECIMENOrdering Facility: [facility] Address: [address] [place] [address] Performed By: #### 5 7021-8 ####[facility] LABORATORYCLIA [id number] [address] [place] Eosinophils (Bld) [#/Vol] 0.42 10*3/uL Normal <0.46 [facility] Comment on above: Order Comment: Speci men Type: BLOOD SPECIMENOrdering Facility: [facility] Address: [address] [place] [address] Performed By: #### 5 7021-8 ####[facility] LABORATORYCLIA [id number] [address] [place] Eosinophils/100 WBC (Bld) 3.8 % Normal [facility] Comment on above: Order Comment: Speci men Type: BLOOD SPECIMENOrdering Facility: [facility] Address: [address] [place] [address] Performed By: #### 5 7021-8 ####[facility] LABORATORYCLIA [id number] [address] [place] Erythrocyte distribution width (RBC) [Ratio] 17.6 % High 11.5-15.0 [facility] Comment on above: Order Comment: Speci men Type: BLOOD SPECIMENOrdering Facility: [facility] Address: [address] [place] [address] Performed By: #### 5 7021-8 ####[facility] LABORATORYCLIA [id number] [address] [place] Hematocrit (Bld) [Volume fraction] 29.3 % Low 39.0-51.0 [facility] Comment on above: Order Comment: Speci men Type: BLOOD SPECIMENOrdering Facility: [facility] Address: [address] [place] [address] Performed By: #### 5 7021-8 ####[facility]ORATORYCLIA [id number] [address] [place] Hemoglobin (Bld) [Mass/Vol] 9.0 g/dL Low 13.0-17.0 [facility] Comment on above: Order Comment: Speci men Type: BLOOD SPECIMENOrdering Facility: [facility] Address: [address] [place] [address] Performed By: #### 5 7021-8 ####[facility] LABORATORYCLIA [id number] [address] IMMATURE GRAN % 0.5 % Normal [facility] Comment on above: Order Comment: Speci men Type: BLOOD SPECIMENOrdering Facility: [facility] Address: [address] [place] [address] Performed By: #### 5 7021-8 ####[facility] LABORATORYCLIA [id number] [address] IMMATURE GRAN ABS 0.05 k/uL Normal <0.10 [facility] Comment on above: Order Comment: Speci men Type: BLOOD SPECIMENOrdering Facility: [facility] Address: [address] [place] [address] Performed By: #### 5 7021-8 ####[facility] LABORATORYCLIA [id number] [address] [place] Lymphocytes (Bld) [#/Vol] 2.00 10*3/uL Normal 1.00-4.00 [facility] Comment on above: Order Comment: Speci men Type: BLOOD SPECIMENOrdering Facility: [facility] Address: [address] [place] [address] Performed By: #### 5 7021-8 ####[facility] LABORATORYCLIA [id number] [address] Lymphocytes/100 WBC (Bld) 18.1 % Normal [facility] Comment on above: Order Comment: Speci men Type: BLOOD SPECIMENOrdering Facility: [facility] Address: [address] [place] [address] Performed By: #### 5 7021-8 ####[facility] LABORATORYCLIA [id number] [address] MCH (RBC) [Entitic mass] 28.1 pg Normal 26.0-34.0 [facility] Comment on above: Order Comment: Speci men Type: BLOOD SPECIMENOrdering Facility: [facility] Address: [address] [place] [address] Performed By: #### 5 7021-8 ####[facility] LABORATORYCLIA [id number] [address] STATES [facility] MCHC (RBC) [Mass/Vol] 30.7 g/dL Normal 30.5-36.0 [facility] Comment on above: Order Comment: Speci men Type: BLOOD SPECIMENOrdering Facility: [facility] Address: [address] [place] [address] Performed By: #### 5 7021-8 ####[facility]ORATORYCLIA [id number] [address] MCV (RBC) [Entitic vol] 91.6 fL Normal 80.0-100.0 [facility] Comment on above: Order Comment: Speci men Type: BLOOD SPECIMENOrdering Facility: [facility] Address: [address] [place] [address] Performed By: #### 5 7021-8 ####[facility]ORATORYCLIA [id number] [address] Monocytes (Bld) [#/Vol] 0.68 10*3/uL Normal <0.87 [facility] Comment on above: Order Comment: Speci men Type: BLOOD SPECIMENOrdering Facility: [facility] Address: [address] [place] [address] Performed By: #### 5 7021-8 ####[facility]ORATORYCLIA [id number] [address] Monocytes/100 WBC (Bld) 6.2 % Normal [facility] Comment on above: Order Comment: Speci men Type: BLOOD SPECIMENOrdering Facility: [facility] Address: [address] [place] [address] Performed By: #### 5 7021-8 ####[facility] LABORATORYCLIA [id number] [address] [place] Neutrophils (Bld) [#/Vol] 7.82 10*3/uL High 1.45-7.50 [facility] Comment on above: Order Comment: Speci men Type: BLOOD SPECIMENOrdering Facility: [facility] Address: [address] [place] [address] Performed By: #### 5 7021-8 ####[facility] LABORATORYCLIA [id number] [address] [place] Neutrophils/100 WBC (Bld) 70.9 % Normal [facility] Comment on above: Order Comment: Speci men Type: BLOOD SPECIMENOrdering Facility: [facility] Address: [address] [place] [address] Performed By: #### 5 7021-8 ####[facility] LABORATORYCLIA [id number] [address] [place] Nucleated RBC (Bld) [#/Vol] 10*3/uL Normal <0.01 [facility] Comment on above: Order Comment: Speci men Type: BLOOD SPECIMENOrdering Facility: [facility] Address: [address] [place] [address] Performed By: #### 5 7021-8 ####[facility] LABORATORYCLIA [id number] [address] [place] Nucleated RBC/100 WBC (Bld) [Ratio] 0.0 /100 WBC Normal [facility] Comment on above: Order Comment: Speci men Type: BLOOD SPECIMENOrdering Facility: [facility] Address: [address] [place] [address] Performed By: #### 5 7021-8 ####[facility]ORATORYCLIA [id number] [address] [place] Platelet mean volume (Bld) [Entitic vol] 10.1 fL Normal 9.0-12.7 [facility] Comment on above: Order Comment: Speci men Type: BLOOD SPECIMENOrdering Facility: [facility] Address: [address] [place] [address] Performed By: #### 5 7021-8 ####[facility] LABORATORYCLIA [id number] [place] [address] [place] Platelets (Bld) [#/Vol] 160 10*3/uL Normal 150-400 [facility] Comment on above: Order Comment: Speci men Type: BLOOD SPECIMENOrdering Facility: [facility] Address: [address] [place] [address] Performed By: #### 5 7021-8 ####[facility] LABORATORYCLIA [id number] [place] [address] [place] RBC (Bld) [#/Vol] 3.20 10*6/uL Low 4.20-6.00 [facility] Comment on above: Order Comment: Speci men Type: BLOOD SPECIMENOrdering Facility: [facility] Address: [address] [place] [address] Performed By: #### 5 7021-8 ####[facility] LABORATORYCLIA [id number] [place] [address] [place] WBC (Bld) [#/Vol] 11.03 10*3/uL High 3.70-11.00 [facility] Comment on above: Order Comment: Speci men Type: BLOOD SPECIMENOrdering Facility: [facility] Address: [address] [place] [address] Performed By: #### 5 7021-8 ####[facility] LABORATORYCLIA [id number] [address] [place] CONSULT PROGon 08-09-2021 CONSULT PROG Normal [facility] CT BRAIN WO IVCONon 08-10-19 CT BRAIN WO IVCON Normal [facility] CT BRAIN WO IVCON Normal [facility] Magnesium SerPl-mCncon 08-09 Magnesium [Mass/Vol] 2.0 mg/dL Normal 1.7-2.3 [facility] Comment on above: Order Comment: Shira feldman Type: BLOOD SPECIMENOrdering Facility: [facility] Address: [address] [place] [address] Performed By: #### 2 4321-2, 74680-5, 2777-1 ####[facility] LABORATORYCLIA [id number] [address] OF [facility] NURSING PROGon 08-09-2021 NURSING PROG Normal [facility] OPERATIVE NOon 08-09-2021 OPERATIVE NO Normal [facility] PT panel Coag (PPP)on 2021 INR Coag (PPP) [Relative time] 1.1 {INR} Normal 0.9-1.3 [facility] Comment on above: Order Comment: Shira feldman Type: BLOOD SPECIMENOrdering Facility: [facility] Address: [address] [place] [address] Result Comment: Yris min K Antagonist (VKA) Therapeutic Range: INR 2 to 3 (Target INR of 2.5)Note: For patients treated with VKA drugs, such as warfarin, the [place] [employer] 2012 Guideline recommends [...] al. Chest 2012, 141:7S-47SNishmariangel RA, et al. [facility] 2017, 70: 252-289 Performed By: #### 3 4528-0, 86245-6 ####[facility] LABORATORYCLIA [id number] [address] [place] PT Coag (PPP) [Time] 11.7 s Normal 9.7-13.0 [facility] Comment on above: Order Comment: Speci men Type: BLOOD SPECIMENOrdering Facility: [facility] Address: [address] [place] [address] Performed By: #### 3 4528-0, 75057-6 ####[facility] LABORATORYCLIA [id number] [address] Phosphate SerPl-mCncon 08-09 Phosphate [Mass/Vol] 4.0 mg/dL Normal 2.7-4.8 [facility] Comment on above: Order Comment: Speci men Type: BLOOD SPECIMENOrdering Facility: [facility] Address: [address] [place] [address] Performed By: #### 2 4321-2, 36952-2, 2777-1 ####[facility] LABORATORYCLIA [id number] [address] THERAPY NTon 08-09-2021 THERAPY NT Normal [facility] THERAPY NT Normal [facility] TYPE AND SCREENon 08-09-2021 ABO O Normal [facility] Comment on above: Order Comment: Speci men Type: BLOOD SPECIMENOrdering Facility: [facility] Address: [address] [place] [address] Performed By: #### T SCR ####[facility] BLOOD BANKCLIA [id number] [address] [facility] HISTORICAL AB SCR STATUS Negative Normal [facility] Comment on above: Order Comment: Speci men Type: BLOOD SPECIMENOrdering Facility: [facility] Address: [address] [place] [address] Performed By: #### T SCR ####[facility] BLOOD BANKCLIA [id number] [address] Rh Nom (Bld) Positive Normal [facility] Comment on above: Order Comment: Speci men Type: BLOOD SPECIMENOrdering Facility: [facility] Address: [address] [place] [address] Performed By: #### T SCR ####[facility] BLOOD BANKCLIA [id number] [address] TYPE AND SCREEN EXPIRATION 08/12/2021 23:59 Normal [facility] Comment on above: Order Comment: Speci men Type: BLOOD SPECIMENOrdering Facility: [facility] Address: [address] [place] [address] Performed By: #### T SCR ####[facility] BLOOD BANKCLIA [id number] [address] XR ABD 2V SUPINE W UPR/DECUB [...] Coag (PPP) [Time] 26.8 s Normal 23.0-32.4 [facility] Comment on above: Order Comment: Speci men Type: BLOOD SPECIMENOrdering Facility: [facility] Address: [address] [place] [address] Performed By: #### 3 4528-0, 66804-8 ####[facility] LABORATORYCLIA [id number] [address] CASE MANAGEMon 08-08-2021 CASE MANAGEM Normal [facility] CBC W Auto Differential pane l (Bld)on 08-08-2021 Basophils (Bld) [#/Vol] 0.05 10*3/uL Normal <0.11 [facility] Comment on above: Order Comment: Speci men Type: BLOOD SPECIMENOrdering Facility: [facility] Address: [address] [place] [address] Performed By: #### 5 7021-8 ####[facility]ORATORYCLIA [id number] [address] [place] [facility] Basophils/100 WBC (Bld) 0.5 % Normal [facility] Comment on above: Order Comment: Speci men Type: BLOOD SPECIMENOrdering Facility: [facility] Address: [address] [place] [address] Performed By: #### 5 7021-8 ####[facility] LABORATORYCLIA [id number] [address] [place] Differential cell count method Nom (Bld) Auto Normal [facility] Comment on above: Order Comment: Speci men Type: BLOOD SPECIMENOrdering Facility: [facility] Address: [address] [place] [address] Performed By: #### 5 7021-8 ####[facility] LABORATORYCLIA [id number] [address] [place] Eosinophils (Bld) [#/Vol] 0.17 10*3/uL Normal <0.46 [facility] Comment on above: Order Comment: Speci men Type: BLOOD SPECIMENOrdering Facility: [facility] Address: [address] [place] [address] Performed By: #### 5 7021-8 ####[facility] LABORATORYCLIA [id number] [address] Eosinophils/100 WBC (Bld) 1.6 % Normal [facility] Comment on above: Order Comment: Speci men Type: BLOOD SPECIMENOrdering Facility: [facility] Address: [address] [place] [address] Performed By: #### 5 7021-8 ####[facility] LABORATORYCLIA [id number] [address] [place] Erythrocyte distribution width (RBC) [Ratio] 17.8 % High 11.5-15.0 [facility] Comment on above: Order Comment: Speci men Type: BLOOD SPECIMENOrdering Facility: [facility] Address: [address] [place] [address] Performed By: #### 5 7021-8 ####[facility] LABORATORYCLIA [id number] [address] Hematocrit (Bld) [Volume fraction] 29.6 % Low 39.0-51.0 [facility] Comment on above: Order Comment: Speci men Type: BLOOD SPECIMENOrdering Facility: [facility] Address: [address] [place] [address] Performed By: #### 5 7021-8 ####[facility] LABORATORYCLIA [id number] [address] Hemoglobin (Bld) [Mass/Vol] 9.0 g/dL Low 13.0-17.0 [facility] Comment on above: Order Comment: Speci men Type: BLOOD SPECIMENOrdering Facility: [facility] Address: [address] [place] [address] Performed By: #### 5 7021-8 ####[facility]ORATORYCLIA [id number] [address] IMMATURE GRAN % 0.5 % Normal [facility] Comment on above: Order Comment: Speci men Type: BLOOD SPECIMENOrdering Facility: [facility] Address: [address] [place] [address] Performed By: #### 5 7021-8 ####[facility]ORATORYCLIA [id number] [address] IMMATURE GRAN ABS 0.05 k/uL Normal <0.10 [facility] Comment on above: Order Comment: Speci men Type: BLOOD SPECIMENOrdering Facility: [facility] Address: [address] [place] [address] Performed By: #### 5 7021-8 ####[facility] LABORATORYCLIA [id number] [address] [place] Lymphocytes (Bld) [#/Vol] 1.93 10*3/uL Normal 1.00-4.00 [facility] Comment on above: Order Comment: Speci men Type: BLOOD SPECIMENOrdering Facility: [facility] Address: [address] [place] [address] Performed By: #### 5 7021-8 ####[facility]ORATORYCLIA [id number] [address] Lymphocytes/100 WBC (Bld) 18.2 % Normal [facility] Comment on above: Order Comment: Speci men Type: BLOOD SPECIMENOrdering Facility: [facility] Address: [address] [place] [address] Performed By: #### 5 7021-8 ####[facility]ORATORYCLIA [id number] [address] MCH (RBC) [Entitic mass] 28.1 pg Normal 26.0-34.0 [facility] Comment on above: Order Comment: Speci men Type: BLOOD SPECIMENOrdering Facility: [facility] Address: [address] [place] [address] Performed By: #### 5 7021-8 ####[facility]ORATORYCLIA [id number] [address] MCHC (RBC) [Mass/Vol] 30.4 g/dL Low 30.5-36.0 [facility] Comment on above: Order Comment: Speci men Type: BLOOD SPECIMENOrdering Facility: [facility] Address: [address] [place] [address] Performed By: #### 5 7021-8 ####[facility]ORATORYCLIA [id number] [address] [place] [facility] MCV (RBC) [Entitic vol] 92.5 fL Normal 80.0-100.0 [facility] Comment on above: Order Comment: Speci men Type: BLOOD SPECIMENOrdering Facility: [facility] Address: [address] [place] [address] Performed By: #### 5 7021-8 ####[facility] LABORATORYCLIA [id number] [place] [address] [place] Monocytes (Bld) [#/Vol] 0.75 10*3/uL Normal <0.87 [facility] Comment on above: Order Comment: Speci men Type: BLOOD SPECIMENOrdering Facility: [facility] Address: [address] [place] [address] Performed By: #### 5 7021-8 ####[facility]ORATORYCLIA [id number] [place] [address] [place] Monocytes/100 WBC (Bld) 7.1 % Normal [facility] Comment on above: Order Comment: Speci men Type: BLOOD SPECIMENOrdering Facility: [facility] Address: [address] [place] [address] Performed By: #### 5 7021-8 ####[facility]ORATORYCLIA [id number] [place] [address] [place] Neutrophils (Bld) [#/Vol] 7.65 10*3/uL High 1.45-7.50 [facility] Comment on above: Order Comment: Speci men Type: BLOOD SPECIMENOrdering Facility: [facility] Address: [address] [place] [address] Performed By: #### 5 7021-8 ####[facility]ORATORYCLIA [id number] [address] [place] Neutrophils/100 WBC (Bld) 72.1 % Normal [facility] Comment on above: Order Comment: Speci men Type: BLOOD SPECIMENOrdering Facility: [facility] Address: [address] [place] [address] Performed By: #### 5 7021-8 ####[facility]ORATORYCLIA [id number] [place] [address] [place] Nucleated RBC (Bld) [#/Vol] 10*3/uL Normal <0.01 [facility] Comment on above: Order Comment: Speci men Type: BLOOD SPECIMENOrdering Facility: [facility] Address: [address] [place] [address] Performed By: #### 5 7021-8 ####[facility]ORATORYCLIA [id number] [address] Nucleated RBC/100 WBC (Bld) [Ratio] 0.0 /100 WBC Normal [facility] Comment on above: Order Comment: Speci men Type: BLOOD SPECIMENOrdering Facility: [facility] Address: [address] [place] [address] Performed By: #### 5 7021-8 ####[facility]ORATORYCLIA [id number] [address] [place] Platelet mean volume (Bld) [Entitic vol] 9.8 fL Normal 9.0-12.7 [facility] Comment on above: Order Comment: Speci men Type: BLOOD SPECIMENOrdering Facility: [facility] Address: [address] [place] [address] Performed By: #### 5 7021-8 ####[facility]ORATORYCLIA [id number] [address] [place] Platelets (Bld) [#/Vol] 175 10*3/uL Normal 150-400 [facility] Comment on above: Order Comment: Speci men Type: BLOOD SPECIMENOrdering Facility: [facility] Address: [address] [place] [address] Performed By: #### 5 7021-8 ####[facility]ORATORYCLIA [id number] [address] [place] RBC (Bld) [#/Vol] 3.20 10*6/uL Low 4.20-6.00 [facility] Comment on above: Order Comment: Speci men Type: BLOOD SPECIMENOrdering Facility: [facility] Address: [address] [place] [address] Performed By: #### 5 7021-8 ####[facility]ORATORYCLIA [id number] [address] [place] WBC (Bld) [#/Vol] 10.60 10*3/uL Normal 3.70-11.00 [facility] Comment on above: Order Comment: Speci men Type: BLOOD SPECIMENOrdering Facility: [facility] Address: [address] [place] [address] Performed By: #### 5 7021-8 ####[facility]ORATORYCLIA [id number] [address] [place] CT BRAIN WO IVCONon 08-09-19 CT BRAIN WO IVCON Normal [facility] NURSING PROGon 08-08-2021 NURSING PROG Normal [facility] Prealbumin [Mass/Vol]on Prealbumin Nephelometry [Mass/Vol] 29 mg/dL Normal - [facility] Comment on above: Order Comment: Speci men Type: BLOOD SPECIMENOrdering Facility: [facility] Address: [address] [place] [address] Performed By: #### 1 4338-8 ####[facility]ORATORYCLIA [id number] [address] OF [facility] SARS-CoV-2 RNA Resp Ql MEGAN+p robeon 08-08-2021 SARS-CoV-2 (COVID-19) RNA MEGAN+probe Ql (Resp) COVID 19 RESULT: SARS-CoV-2 (Agent of COVID-19) Not Detected by RT-PCR or equivalent method. This test has been authorized by FDA under an Emergency Use Authorization (EUA). Normal [facility] Comment on above: Performed By: #### 9 4500-6 ####[facility]ORATORYCLIA [id number] [place] [address] [place] ALLIED HEALTHon 08-07-2021 ALLIED HEALTH Normal [facility] Basic metabolic 2000 panelon 08-07-2021 Anion gap [Moles/Vol] 9 mmol/L Normal 9-18 [facility] Comment on above: Order Comment: Speci men Type: BLOOD SPECIMENOrdering Facility: [facility] Address: [address] [place] [address] Performed By: #### 2 4321-2, 2776-05, , HFP ####[facility] LABORATORYCLIA [id number] [place] [address] [place] Calcium [Mass/Vol] 9.4 mg/dL Normal 8.5-10.2 [facility] Comment on above: Order Comment: Speci men Type: BLOOD SPECIMENOrdering Facility: [facility] Address: [address] [place] [address] Performed By: #### 2 4321-2, 2776-05, , HFP ####[facility]ORATORYCLIA [id number] [place] [address] [place] Chloride [Moles/Vol] 98 mmol/L Normal 97-105 [facility] Comment on above: Order Comment: Speci men Type: BLOOD SPECIMENOrdering Facility: [facility] Address: [address] [place] [address] Performed By: #### 2 4321-2, 2776-05, , HFP ####[facility]ORATORYCLIA [id number] [place] [address] [place] CO2 [Moles/Vol] 29 mmol/L Normal 22-30 [facility] Comment on above: Order Comment: Speci men Type: BLOOD SPECIMENOrdering Facility: [facility] Address: [address] [place] [address] Performed By: #### 2 4321-2, 2776-05, , HFP ####[facility]ORATORYCLIA [id number] [place] [address] [place] Creatinine [Mass/Vol] 0.67 mg/dL Low 0.73-1.22 [facility] Comment on above: Order Comment: Speci men Type: BLOOD SPECIMENOrdering Facility: [facility] Address: [address] [place] [address] Performed By: #### 2 4321-2, 2776-05, , HFP ####[facility]ORATORYCLIA [id number] [address] [place] ESTIMATED GLOMERULAR FILTRATION RATE 101 mL/min/1.73m??? Normal >=60 [facility] Comment on above: Order Comment: Shira feldman Type: BLOOD SPECIMENOrdering Facility: [facility] Address: [address] [place], [place] [address] Result Comment: Luzmaria mated Glomerular Filtration Rate [...] Performed By: #### 2 4321-2, 2777-, , [facility] ####[facility]ORATORYCLIA [id number] [place] [address] [place] Glucose [Mass/Vol] 117 mg/dL High 74-99 [facility] Comment on above: Order Comment: Shira feldman Type: BLOOD SPECIMENOrdering Facility: [facility] Address: [address] [place] [address] Result Comment: The [place] [employer] (ADA) provides guidance for cutoff [...] Standards of Medical Care in Diabetes 2016, [place] [employer]. Diabetes Care. 2016.39(Suppl 1). Performed By: #### 2 4321-2, 2777-, , [facility] ####[facility] LABORATORYCLIA [id number] [place] [address] [place] Potassium [Moles/Vol] 4.1 mmol/L Normal 3.7-5.1 [facility] Comment on above: Order Comment: Speci men Type: BLOOD SPECIMENOrdering Facility: [facility] Address: [address] [place], [place] [address] Performed By: #### 2 4321-2, 2776-05, , [facility] ####[facility]ORATORYCLIA [id number] [place] [address] [place] Sodium [Moles/Vol] 136 mmol/L Normal 136-144 [facility] Comment on above: Order Comment: Speci men Type: BLOOD SPECIMENOrdering Facility: [facility] Address: [address] [place], [place] [address] Performed By: #### 2 4321-2, 2776-05, , [facility] ####[facility]ORATORYCLIA [id number] [place] [address] [place] Urea nitrogen [Mass/Vol] 31 mg/dL High 9-24 [facility] Comment on above: Order Comment: Speci men Type: BLOOD SPECIMENOrdering Facility: [facility] Address: [address] [place] [address] Performed By: #### 2 4321-2, 2776-05, , [facility] ####[facility]ORATORYCLIA [id number] [address] [place] CBC W Auto Differential pane l (Bld)on 08-07-2021 Basophils (Bld) [#/Vol] 0.03 10*3/uL Normal <0.11 [facility] Comment on above: Order Comment: Speci men Type: BLOOD SPECIMENOrdering Facility: [facility] Address: [address] [place] [address] Performed By: #### 5 7021-8 ####[facility]ORATORYCLIA [id number] [address] [place] Basophils/100 WBC (Bld) 0.3 % Normal [facility] Comment on above: Order Comment: Speci men Type: BLOOD SPECIMENOrdering Facility: [facility] Address: [address] [place] [address] Performed By: #### 5 7021-8 ####[facility]ORATORYCLIA [id number] [address] Differential cell count method Nom (Bld) Auto Normal [facility] Comment on above: Order Comment: Speci men Type: BLOOD SPECIMENOrdering Facility: [facility] Address: [address] [place] [address] Performed By: #### 5 7021-8 ####[facility]ORATORYCLIA [id number] [address] [place] Eosinophils (Bld) [#/Vol] 0.16 10*3/uL Normal <0.46 [facility] Comment on above: Order Comment: Speci men Type: BLOOD SPECIMENOrdering Facility: [facility] Address: [address] [place] [address] Performed By: #### 5 7021-8 ####[facility]ORATORYCLIA [id number] [address] Eosinophils/100 WBC (Bld) 1.6 % Normal [facility] Comment on above: Order Comment: Speci men Type: BLOOD SPECIMENOrdering Facility: [facility] Address: [address] [place] [address] Performed By: #### 5 7021-8 ####[facility]ORATORYCLIA [id number] [address] Erythrocyte distribution width (RBC) [Ratio] 18.1 % High 11.5-15.0 [facility] Comment on above: Order Comment: Speci men Type: BLOOD SPECIMENOrdering Facility: [facility] Address: [address] [place] [address] Performed By: #### 5 7021-8 ####[facility]ORATORYCLIA [id number] [address] [place] Hematocrit (Bld) [Volume fraction] 30.6 % Low 39.0-51.0 [facility] Comment on above: Order Comment: Speci men Type: BLOOD SPECIMENOrdering Facility: [facility] Address: [address] [place] [address] Performed By: #### 5 7021-8 ####[facility]ORATORYCLIA [id number] [address] [place] Hemoglobin (Bld) [Mass/Vol] 9.4 g/dL Low 13.0-17.0 [facility] Comment on above: Order Comment: Speci men Type: BLOOD SPECIMENOrdering Facility: [facility] Address: [address] [place] [address] Performed By: #### 5 7021-8 ####[facility]ORATORYCLIA [id number] [address] IMMATURE GRAN % 0.4 % Normal [facility] Comment on above: Order Comment: Speci men Type: BLOOD SPECIMENOrdering Facility: [facility] Address: [address] [place] [address] Performed By: #### 5 7021-8 ####[facility]ORATORYCLIA [id number] [address] IMMATURE GRAN ABS 0.04 k/uL Normal <0.10 [facility] Comment on above: Order Comment: Speci men Type: BLOOD SPECIMENOrdering Facility: [facility] Address: [address] [place] [address] Performed By: #### 5 7021-8 ####[facility]ORATORYCLIA [id number] [address] [place] Lymphocytes (Bld) [#/Vol] 2.05 10*3/uL Normal 1.00-4.00 [facility] Comment on above: Order Comment: Speci men Type: BLOOD SPECIMENOrdering Facility: [facility] Address: [address] [place] [address] Performed By: #### 5 7021-8 ####[facility]ORATORYCLIA [id number] [address] Lymphocytes/100 WBC (Bld) 20.2 % Normal [facility] Comment on above: Order Comment: Speci men Type: BLOOD SPECIMENOrdering Facility: [facility] Address: [address] [place] [address] Performed By: #### 5 7021-8 ####[facility]ORATORYCLIA [id number] [address] [place] [facility] MCH (RBC) [Entitic mass] 28.8 pg Normal 26.0-34.0 [facility] Comment on above: Order Comment: Speci men Type: BLOOD SPECIMENOrdering Facility: [facility] Address: [address] [place] [address] Performed By: #### 5 7021-8 ####[facility]ORATORYCLIA [id number] [address] OF [facility] MCHC (RBC) [Mass/Vol] 30.7 g/dL Normal 30.5-36.0 [facility] Comment on above: Order Comment: Speci men Type: BLOOD SPECIMENOrdering Facility: [facility] Address: [address] [place] [address] Performed By: #### 5 7021-8 ####[facility]ORATORYCLIA [id number] [address] MCV (RBC) [Entitic vol] 93.9 fL Normal 80.0-100.0 [facility] Comment on above: Order Comment: Speci men Type: BLOOD SPECIMENOrdering Facility: [facility] Address: [address] [place] [address] Performed By: #### 5 7021-8 ####[facility]ORATORYCLIA [id number] [address] Monocytes (Bld) [#/Vol] 0.64 10*3/uL Normal <0.87 [facility] Comment on above: Order Comment: Speci men Type: BLOOD SPECIMENOrdering Facility: [facility] Address: [address] [place] [address] Performed By: #### 5 7021-8 ####[facility]ORATORYCLIA [id number] [address] [place] Monocytes/100 WBC (Bld) 6.3 % Normal [facility] Comment on above: Order Comment: Speci men Type: BLOOD SPECIMENOrdering Facility: [facility] Address: [address] [place] [address] Performed By: #### 5 7021-8 ####[facility]ORATORYCLIA [id number] [address] [place] Neutrophils (Bld) [#/Vol] 7.22 10*3/uL Normal 1.45-7.50 [facility] Comment on above: Order Comment: Speci men Type: BLOOD SPECIMENOrdering Facility: [facility] Address: [address] [place] [address] Performed By: #### 5 7021-8 ####[facility]ORATORYCLIA [id number] [address] Neutrophils/100 WBC (Bld) 71.2 % Normal [facility] Comment on above: Order Comment: Speci men Type: BLOOD SPECIMENOrdering Facility: [facility] Address: [address] [place] [address] Performed By: #### 5 7021-8 ####[facility]ORATORYCLIA [id number] [address] [place] Nucleated RBC (Bld) [#/Vol] 10*3/uL Normal <0.01 [facility] Comment on above: Order Comment: Speci men Type: BLOOD SPECIMENOrdering Facility: [facility] Address: [address] [place] [address] Performed By: #### 5 7021-8 ####[facility]ATORYCLIA [id number] [address] [place] Nucleated RBC/100 WBC (Bld) [Ratio] 0.0 /100 WBC Normal [facility] Comment on above: Order Comment: Speci men Type: BLOOD SPECIMENOrdering Facility: [facility] Address: [address] [place], [place] [address] Performed By: #### 5 7021-8 ####[facility]ORATORYCLIA [id number] [address] Platelet mean volume (Bld) [Entitic vol] 9.9 fL Normal 9.0-12.7 [facility] Comment on above: Order Comment: Speci men Type: BLOOD SPECIMENOrdering Facility: [facility] Address: [address] [place] [address] Performed By: #### 5 7021-8 ####[facility]ORATORYCLIA [id number] [address] [place] Platelets (Bld) [#/Vol] 227 10*3/uL Normal 150-400 [facility] Comment on above: Order Comment: Speci men Type: BLOOD SPECIMENOrdering Facility: [facility] Address: [address] [place] [address] Performed By: #### 5 7021-8 ####[facility]ORATORYCLIA [id number] [address] [place] RBC (Bld) [#/Vol] 3.26 10*6/uL Low 4.20-6.00 [facility] Comment on above: Order Comment: Speci men Type: BLOOD SPECIMENOrdering Facility: [facility] Address: [address] [place], [place] [address] Performed By: #### 5 7021-8 ####[facility]ORATORYCLIA [id number] [address] [place] WBC (Bld) [#/Vol] 10.14 10*3/uL Normal 3.70-11.00 [facility] Comment on above: Order Comment: Speci men Type: BLOOD SPECIMENOrdering Facility: [facility] Address: [address] [place] [address] Performed By: #### 5 7021-8 ####[facility]ORATORYCLIA [id number] [address] BRAIN WO IVCONon 08-08-19 CT BRAIN WO IVCON Normal [facility] HEPATIC FUNCTION PNLon 08-07 Albumin [Mass/Vol] 3.6 g/dL Low 3.9-4.9 [facility] Comment on above: Order Comment: Speci men Type: BLOOD SPECIMENOrdering Facility: [facility] Address: [address] [place] [address] Performed By: #### 2 4321-2, 2776-, , HFP ####[facility]ORATORYCLIA [id number] [address] ALP [Catalytic activity/Vol] 124 U/L High 38-113 [facility] Comment on above: Order Comment: Speci men Type: BLOOD SPECIMENOrdering Facility: [facility] Address: [address] [place] [address] Performed By: #### 2 4321-2, 2776-05, , HFP ####[facility]ORATORYCLIA [id number] [address] [place] [facility] ALT With P-5'-P [Catalytic activity/Vol] 29 U/L Normal 10-54 [facility] Comment on above: Order Comment: Speci men Type: BLOOD SPECIMENOrdering Facility: [facility] Address: [address] [place] [address] Performed By: #### 2 4321-2, 2776-05, , HFP ####[facility] LABORATORYCLIA [id number] [address] AST With P-5'-P [Catalytic activity/Vol] 18 U/L Normal 14-40 [facility] Comment on above: Order Comment: Speci men Type: BLOOD SPECIMENOrdering Facility: [facility] Address: [address] [place] [address] Performed By: #### 2 4321-2, 277-, , HFP ####[facility] LABORATORYCLIA [id number] [address] [place] Bilirubin [Mass/Vol] 0.3 mg/dL Normal 0.2-1.3 [facility] Comment on above: Order Comment: Speci men Type: BLOOD SPECIMENOrdering Facility: [facility] Address: [address] [place] [address] Performed By: #### 2 4321-2, 2777-, , HFP ####[facility] LABORATORYCLIA [id number] [address] [place] Bilirubin.conjugated [Mass/Vol] mg/dL Normal <0.2 [facility] Comment on above: Order Comment: Speci men Type: BLOOD SPECIMENOrdering Facility: [facility] Address: [address] [place] [address] Performed By: #### 2 4321-2, 27711-04, , HFP ####[facility] LABORATORYCLIA [id number] [address] [place] [facility] Protein [Mass/Vol] 6.4 g/dL Normal 6.3-8.0 [facility] Comment on above: Order Comment: Speci men Type: BLOOD SPECIMENOrdering Facility: [facility] Address: [address] [place] [address] Performed By: #### 2 4321-2, 27711-04, , HFP ####[facility]ORATORYCLIA [id number] [address] [place] Magnesium SerPl-mCncon 08-07 Magnesium [Mass/Vol] 2.3 mg/dL Normal 1.7-2.3 [facility] Comment on above: Order Comment: Speci men Type: BLOOD SPECIMENOrdering Facility: [facility] Address: [address] [place] [address] Performed By: #### 2 4321-2, 277-1, , HFP ####[facility]ORATORYCLIA [id number] [address] [place] NURSING PROGon 08-07-2021 NURSING PROG Normal [facility] Phosphate SerPl-mCncon 08-07 Phosphate [Mass/Vol] 3.5 mg/dL Normal 2.7-4.8 [facility] Comment on above: Order Comment: Speci men Type: BLOOD SPECIMENOrdering Facility: [facility] Address: [address] [place] [address] Performed By: #### 2 4321-2, 277-1, , HFP ####[facility]ORATORYCLIA [id number] [address] [place] ANES POSTPROC EVALon 022 ANES POSTPROC EVAL Normal [facility] Basic metabolic 2000 panelon 08-06-2021 Anion gap [Moles/Vol] 11 mmol/L Normal 9-18 [facility] Comment on above: Order Comment: Speci men Type: BLOOD SPECIMENOrdering Facility: [facility] Address: [address] [place] [address] Performed By: #### 2 4321-2, 2776-05, ####[facility]ORATORYCLIA [id number] [place] [address] [place] Calcium [Mass/Vol] 8.2 mg/dL Low 8.5-10.2 [facility] Comment on above: Order Comment: Speci men Type: BLOOD SPECIMENOrdering Facility: [facility] Address: [address] [place] [address] Performed By: #### 2 4321-2, 2776-, ####[facility]ORATORYCLIA [id number] [place] [address] [place] Chloride [Moles/Vol] 100 mmol/L Normal 97-105 [facility] Comment on above: Order Comment: Speci men Type: BLOOD SPECIMENOrdering Facility: [facility] Address: [address] [place] [address] Performed By: #### 2 4321-2, 2776-05, ####[facility]ORATORYCLIA [id number] [place] [address] [place] CO2 [Moles/Vol] 23 mmol/L Normal 22-30 [facility] Comment on above: Order Comment: Speci men Type: BLOOD SPECIMENOrdering Facility: [facility] Address: [address] [place] [address] Performed By: #### 2 4321-2, 2776-05, ####[facility]ORATORYCLIA [id number] [place] [address] [place] [facility] Creatinine [Mass/Vol] 0.55 mg/dL Low 0.73-1.22 [facility] Comment on above: Order Comment: Speci men Type: BLOOD SPECIMENOrdering Facility: [facility] Address: [address] [place] [address] Performed By: #### 2 432-2, 2776-05, ####[facility]ITALIA [id number] [address] [place] [facility] ESTIMATED GLOMERULAR FILTRATION RATE 107 mL/min/1.73m??? Normal >=60 [facility] Comment on above: Order Comment: Speci men Type: BLOOD SPECIMENOrdering Facility: [facility] Address: [address] [place] [address] Result Comment: Luzmaria mated Glomerular Filtration Rate [...] GFR. Performed By: #### 2 4321-2, 2776-05, ####[facility]ORATORYCLIA [id number] [place] [address] [place] Glucose [Mass/Vol] 275 mg/dL High 74-99 [facility] Comment on above: Order Comment: Speci men Type: BLOOD SPECIMENOrdering Facility: [facility] Address: [address] [place], [place] [address] Result Comment: The [place] Diabetes Association (ADA) provides guidance for cutoff [...] Standards of Medical Care in Diabetes 2016, [place] [employer]. Diabetes Care. 2016.39(Suppl 1). Performed By: #### 2 4321-2, 2776-05, ####[facility]ORATORYCLIA [id number] [place] [address] [place] Potassium [Moles/Vol] 3.6 mmol/L Low 3.7-5.1 [facility] Comment on above: Order Comment: Shira feldman Type: BLOOD SPECIMENOrdering Facility: [facility] Address: [address] [place], [place] [address] Performed By: #### 2 4321-2, 2776-05, ####[facility]ORATORYCLIA [id number] [place] [address] [place] Sodium [Moles/Vol] 134 mmol/L Low 136-144 [facility] Comment on above: Order Comment: Johni men Type: BLOOD SPECIMENOrdering Facility: [facility] Address: [address] [id number] Performed By: #### 2 4321-2, 2776-05, ####[facility]ORATORYCLIA [id number] [place] [address] [place] Urea nitrogen [Mass/Vol] 29 mg/dL High 9-24 [facility] Comment on above: Order Comment: Speci men Type: BLOOD SPECIMENOrdering Facility: [facility] Address: [address] [place] [address] Performed By: #### 2 4321-2, 2777-1, 54888-4 ####[facility]ORATORYCLIA [id number] [address] [place] [facility] CBC W Auto Differential pane l (Bld)on 08-06-2021 Basophils (Bld) [#/Vol] 0.03 10*3/uL Normal <0.11 [facility] Comment on above: Order Comment: Speci men Type: BLOOD SPECIMENOrdering Facility: [facility] Address: [address] [place] [address] Performed By: #### 5 7021-8 ####[facility]ORATORYCLIA [id number] [address] [place] Basophils/100 WBC (Bld) 0.3 % Normal [facility] Comment on above: Order Comment: Speci men Type: BLOOD SPECIMENOrdering Facility: [facility] Address: [address] [place] [address] Performed By: #### 5 7021-8 ####[facility]ORATORYCLIA [id number] [address] Differential cell count method Nom (Bld) Auto Normal [facility] Comment on above: Order Comment: Speci men Type: BLOOD SPECIMENOrdering Facility: [facility] Address: [address] [place] [address] Performed By: #### 5 7021-8 ####[facility]ORATORYCLIA [id number] [address] [place] Eosinophils (Bld) [#/Vol] 0.18 10*3/uL Normal <0.46 [facility] Comment on above: Order Comment: Speci men Type: BLOOD SPECIMENOrdering Facility: [facility] Address: [address] [place] [address] Performed By: #### 5 7021-8 ####[facility]ORATORYCLIA [id number] [address] Eosinophils/100 WBC (Bld) 1.6 % Normal [facility] Comment on above: Order Comment: Speci men Type: BLOOD SPECIMENOrdering Facility: [facility] Address: [address] [place] [address] Performed By: #### 5 7021-8 ####[facility]ORATORYCLIA [id number] [address] Erythrocyte distribution width (RBC) [Ratio] 17.9 % High 11.5-15.0 [facility] Comment on above: Order Comment: Speci men Type: BLOOD SPECIMENOrdering Facility: [facility] Address: [address] [place] [address] Performed By: #### 5 7021-8 ####[facility]ORATORYCLIA [id number] [address] Hematocrit (Bld) [Volume fraction] 27.6 % Low 39.0-51.0 [facility] Comment on above: Order Comment: Speci men Type: BLOOD SPECIMENOrdering Facility: [facility] Address: [address] [place] [address] Performed By: #### 5 7021-8 ####[facility]ORATORYCLIA [id number] [address] [place] Hemoglobin (Bld) [Mass/Vol] 8.5 g/dL Low 13.0-17.0 [facility] Comment on above: Order Comment: Speci men Type: BLOOD SPECIMENOrdering Facility: [facility] Address: [address] [place] [address] Performed By: #### 5 7021-8 ####[facility]ORATORYCLIA [id number] [address] IMMATURE GRAN % 0.6 % Normal [facility] Comment on above: Order Comment: Speci men Type: BLOOD SPECIMENOrdering Facility: [facility] Address: [address] [place] [address] Performed By: #### 5 7021-8 ####[facility]ORATORYCLIA [id number] [address] IMMATURE GRAN ABS 0.07 k/uL Normal <0.10 [facility] Comment on above: Order Comment: Speci men Type: BLOOD SPECIMENOrdering Facility: [facility] Address: [address] [place] [address] Performed By: #### 5 7021-8 ####[facility]ORATORYCLIA [id number] [address] Lymphocytes (Bld) [#/Vol] 1.81 10*3/uL Normal 1.00-4.00 [facility] Comment on above: Order Comment: Speci men Type: BLOOD SPECIMENOrdering Facility: [facility] Address: [address] [place] [address] Performed By: #### 5 7021-8 ####[facility]ORATORYCLIA [id number] [address] Lymphocytes/100 WBC (Bld) 15.7 % Normal [facility] Comment on above: Order Comment: Speci men Type: BLOOD SPECIMENOrdering Facility: [facility] Address: [address] [place] [address] Performed By: #### 5 7021-8 ####[facility]ORATORYCLIA [id number] [address] MCH (RBC) [Entitic mass] 28.6 pg Normal 26.0-34.0 [facility] Comment on above: Order Comment: Speci men Type: BLOOD SPECIMENOrdering Facility: [facility] Address: [address] [place] [address] Performed By: #### 5 7021-8 ####[facility]ORATORYCLIA [id number] [address] MCHC (RBC) [Mass/Vol] 30.8 g/dL Normal 30.5-36.0 [facility] Comment on above: Order Comment: Speci men Type: BLOOD SPECIMENOrdering Facility: [facility] Address: [address] [place] [address] Performed By: #### 5 7021-8 ####[facility]ORATORYCLIA [id number] [address] [place] MCV (RBC) [Entitic vol] 92.9 fL Normal 80.0-100.0 [facility] Comment on above: Order Comment: Speci men Type: BLOOD SPECIMENOrdering Facility: [facility] Address: [address] [place] [address] Performed By: #### 5 7021-8 ####[facility]ORATORYCLIA [id number] [address] [place] Monocytes (Bld) [#/Vol] 0.63 10*3/uL Normal <0.87 [facility] Comment on above: Order Comment: Speci men Type: BLOOD SPECIMENOrdering Facility: [facility] Address: [address] [place] [address] Performed By: #### 5 7021-8 ####[facility]ORATORYCLIA [id number] [address] STATES [facility] Monocytes/100 WBC (Bld) 5.5 % Normal [facility] Comment on above: Order Comment: Speci men Type: BLOOD SPECIMENOrdering Facility: [facility] Address: [address] [place] [address] Performed By: #### 5 7021-8 ####[facility]ORATORYCLIA [id number] [address] [place] Neutrophils (Bld) [#/Vol] 8.78 10*3/uL High 1.45-7.50 [facility] Comment on above: Order Comment: Speci men Type: BLOOD SPECIMENOrdering Facility: [facility] Address: [address] [place] [address] Performed By: #### 5 7021-8 ####[facility]ORATORYCLIA [id number] [address] Neutrophils/100 WBC (Bld) 76.3 % Normal [facility] Comment on above: Order Comment: Speci men Type: BLOOD SPECIMENOrdering Facility: [facility] Address: [address] [address] Performed By: #### 5 7021-8 ####[facility]ORATORYCLIA [id number] [address] [place] Nucleated RBC (Bld) [#/Vol] 10*3/uL Normal <0.01 [facility] Comment on above: Order Comment: Speci men Type: BLOOD SPECIMENOrdering Facility: [facility] Address: [address] [place] [address] Performed By: #### 5 7021-8 ####[facility]ORATORYCLIA [id number] [address] Nucleated RBC/100 WBC (Bld) [Ratio] 0.0 /100 WBC Normal [facility] Comment on above: Order Comment: Speci men Type: BLOOD SPECIMENOrdering Facility: [facility] Address: [address] [place] [address] Performed By: #### 5 7021-8 ####[facility]ORATORYCLIA [id number] [address] Platelet mean volume (Bld) [Entitic vol] 9.9 fL Normal 9.0-12.7 [facility] Comment on above: Order Comment: Speci men Type: BLOOD SPECIMENOrdering Facility: [facility] Address: [address] Performed By: #### 5 7021-8 ####[facility]ORATORYCLIA [id number] [address] [place] Platelets (Bld) [#/Vol] 230 10*3/uL Normal 150-400 [facility] Comment on above: Order Comment: Speci men Type: BLOOD SPECIMENOrdering Facility: [facility] Address: [address] [place], [place] [address] Performed By: #### 5 7021-8 ####[facility]ORATORYCLIA [id number] [address] [facility] RBC (Bld) [#/Vol] 2.97 10*6/uL Low 4.20-6.00 [facility] Comment on above: Order Comment: Speci men Type: BLOOD SPECIMENOrdering Facility: [facility] Address: [address] [place] [address] Performed By: #### 5 7021-8 ####[facility]ORATORYCLIA [id number] [address] WBC (Bld) [#/Vol] 11.50 10*3/uL High 3.70-11.00 [facility] Comment on above: Order Comment: Speci men Type: BLOOD SPECIMENOrdering Facility: [facility] Address: [address] [place] [address] Performed By: #### 5 7021-8 ####[facility]ORATORYCLIA [id number] [address] CONSULT PROGon 08-06-2021 CONSULT PROG Normal [facility] Magnesium SerPl-mCncon 08-06 Magnesium [Mass/Vol] 1.9 mg/dL Normal 1.7-2.3 [facility] Comment on above: Order Comment: Speci men Type: BLOOD SPECIMENOrdering Facility: [facility] Address: [address] [place] [address] Performed By: #### 2 4321-2, 2777-1, 86398-3 ####[facility]ORATORYCLIA [id number] [address] NURSING PROGon 08-06-2021 NURSING PROG Normal [facility] OPERATIVE NOon 08-06-2021 OPERATIVE NO Normal [facility] Phosphate SerPl-mCncon 08-06 Phosphate [Mass/Vol] 4.2 mg/dL Normal 2.7-4.8 [facility] Comment on above: Order Comment: Speci men Type: BLOOD SPECIMENOrdering Facility: [facility] Address: [address] [place] [address] Performed By: #### 2 4321-2, 2777-1, 54298-6 ####[facility]ORATORYCLIA [id number] [place] [address] [place] ALLIED HEALTHon 08-05-2021 [...] on above: Performed By: #### 3 2355-0 ####[facility]ORATORYCLIA [id number] [place] [address] [place] Bacteria Ur Culton Bacteria identified Cx Nom (U) CULTURE, URINE: No growth (<1,000 CFU/ml) Normal [facility] Comment on above: Performed By: #### 6 30-4 ####[facility]ORATORYCLIA [id number] [place] [address] [place] Basic metabolic 2000 panelon 08-05-2021 Anion gap [Moles/Vol] 7 mmol/L Low 9-18 [facility] Comment on above: Order Comment: Speci men Type: BLOOD SPECIMENOrdering Facility: [facility] Address: [address] [place] [address] Performed By: #### 2 4321-2 ####[facility]ORATORYCLIA [id number] [place] [address] [place] Calcium [Mass/Vol] 9.5 mg/dL Normal 8.5-10.2 [facility] Comment on above: Order Comment: Speci men Type: BLOOD SPECIMENOrdering Facility: [facility] Address: [address] [address] Performed By: #### 2 4321-2 ####[facility]ORATORYCLIA [id number] [address] [place] Chloride [Moles/Vol] 97 mmol/L Normal 97-105 [facility] Comment on above: Order Comment: Speci men Type: BLOOD SPECIMENOrdering Facility: [facility] Address: [address] [place] [address] Performed By: #### 2 4321-2 ####[facility]ORATORYCLIA [id number] [address] [place] CO2 [Moles/Vol] 30 mmol/L Normal 22-30 [facility] Comment on above: Order Comment: Speci men Type: BLOOD SPECIMENOrdering Facility: [facility] Address: [address] [place] [address] Performed By: #### 2 4321-2 ####[facility]ORATORYCLIA [id number] [address] [place] [facility] Creatinine [Mass/Vol] 0.61 mg/dL Low 0.73-1.22 [facility] Comment on above: Order Comment: Speci men Type: BLOOD SPECIMENOrdering Facility: [facility] Address: [address] [place] [address] Performed By: #### 2 4321-2 ####[facility]ORATORYCLIA [id number] [address] ESTIMATED GLOMERULAR FILTRATION RATE 104 mL/min/1.73m??? Normal >=60 [facility] Comment on above: Order Comment: Speci men Type: BLOOD SPECIMENOrdering Facility: [facility] Address: [address] [place] [address] Result Comment: Luzmaria mated Glomerular Filtration Rate [...] #### 2 4321-2 ####[facility]ORATORYCLIA [id number] [place] [address] [place] Glucose [Mass/Vol] 124 mg/dL High 74-99 [facility] Comment on above: Order Comment: Shira feldman Type: BLOOD SPECIMENOrdering Facility: [facility] Address: [address] [place] [address] Result Comment: The [place] [employer] (ADA) provides guidance for cutoff [...] Standards of Medical Care in Diabetes 2016, [place] [employer]. Diabetes Care. 2016.39(Suppl 1). Performed By: #### 2 4321-2 ####[facility]ORATORYCLIA [id number] [place] [address] [place] Potassium [Moles/Vol] 4.9 mmol/L Normal 3.7-5.1 [facility] Comment on above: Order Comment: Shira feldman Type: BLOOD SPECIMENOrdering Facility: [facility] Address: [address] [address] Performed By: #### 2 4321-2 ####[facility]ORATORYCLIA [id number] [place] [address] [place] Sodium [Moles/Vol] 134 mmol/L Low 136-144 [facility] Comment on above: Order Comment: Shira feldman Type: BLOOD SPECIMENOrdering Facility: [facility] Address: [address] [address] Performed By: #### 2 4321-2 ####[facility]ORATORYCLIA [id number] [place] [address] [place] Urea nitrogen [Mass/Vol] 40 mg/dL High 9-24 [facility] Comment on above: Order Comment: Speci men Type: BLOOD SPECIMENOrdering Facility: [facility] Address: [address] [place] [address] Performed By: #### 2 4321-2 ####[facility]ORATORYCLIA [id number] [address] [place] CBC W Auto Differential pane l (Bld)on 08-05-2021 Basophils (Bld) [#/Vol] 0.04 10*3/uL Normal <0.11 [facility] Comment on above: Order Comment: Speci men Type: BLOOD SPECIMENOrdering Facility: [facility] Address: [address] [place] [address] Performed By: #### 5 7021-8 ####[facility]ORATORYCLIA [id number] [address] [place] Basophils/100 WBC (Bld) 0.3 % Normal [facility] Comment on above: Order Comment: Speci men Type: BLOOD SPECIMENOrdering Facility: [facility] Address: [address] [place] [address] Performed By: #### 5 7021-8 ####[facility]ORATORYCLIA [id number] [address] Differential cell count method Nom (Bld) Auto Normal [facility] Comment on above: Order Comment: Speci men Type: BLOOD SPECIMENOrdering Facility: [facility] Address: [address] [place] [address] Performed By: #### 5 7021-8 ####[facility]ORATORYCLIA [id number] [place] [address] [place] Eosinophils (Bld) [#/Vol] 0.42 10*3/uL Normal <0.46 [facility] Comment on above: Order Comment: Speci men Type: BLOOD SPECIMENOrdering Facility: [facility] Address: [address] [place] [address] Performed By: #### 5 7021-8 ####[facility]ORATORYCLIA [id number] [address] Eosinophils/100 WBC (Bld) 3.6 % Normal [facility] Comment on above: Order Comment: Speci men Type: BLOOD SPECIMENOrdering Facility: [facility] Address: [address] [place] [address] Performed By: #### 5 7021-8 ####[facility]ORATORYCLIA [id number] [address] Erythrocyte distribution width (RBC) [Ratio] 17.9 % High 11.5-15.0 [facility] Comment on above: Order Comment: Speci men Type: BLOOD SPECIMENOrdering Facility: [facility] Address: [address] [place] [address] Performed By: #### 5 7021-8 ####[facility]ORATORYCLIA [id number] [address] Hematocrit (Bld) [Volume fraction] 30.8 % Low 39.0-51.0 [facility] Comment on above: Order Comment: Speci men Type: BLOOD SPECIMENOrdering Facility: [facility] Address: [address] [place] [address] Performed By: #### 5 7021-8 ####[facility]ORATORYCLIA [id number] [address] Hemoglobin (Bld) [Mass/Vol] 9.6 g/dL Low 13.0-17.0 [facility] Comment on above: Order Comment: Speci men Type: BLOOD SPECIMENOrdering Facility: [facility] Address: [address] [place] [address] Performed By: #### 5 7021-8 ####[facility]ORATORYCLIA [id number] [address] IMMATURE GRAN % 0.5 % Normal [facility] Comment on above: Order Comment: Speci men Type: BLOOD SPECIMENOrdering Facility: [facility] Address: [address] [place] [address] Performed By: #### 5 7021-8 ####[facility] LABORATORYCLIA [id number] [address] [place] [facility] IMMATURE GRAN ABS 0.06 k/uL Normal <0.10 [facility] Comment on above: Order Comment: Speci men Type: BLOOD SPECIMENOrdering Facility: [facility] Address: [address] [place] [address] Performed By: #### 5 7021-8 ####[facility] LABORATORYCLIA [id number] [address] Lymphocytes (Bld) [#/Vol] 2.17 10*3/uL Normal 1.00-4.00 [facility] Comment on above: Order Comment: Speci men Type: BLOOD SPECIMENOrdering Facility: [facility] Address: [address] [place] [address] Performed By: #### 5 7021-8 ####[facility] LABORATORYCLIA [id number] [address] Lymphocytes/100 WBC (Bld) 18.7 % Normal [facility] Comment on above: Order Comment: Speci men Type: BLOOD SPECIMENOrdering Facility: [facility] Address: [address] [place] [address] Performed By: #### 5 7021-8 ####[facility] LABORATORYCLIA [id number] [place] [address] [place] MCH (RBC) [Entitic mass] 28.9 pg Normal 26.0-34.0 [facility] Comment on above: Order Comment: Speci men Type: BLOOD SPECIMENOrdering Facility: [facility] Address: [address] [place] [address] Performed By: #### 5 7021-8 ####[facility]ORATORYCLIA [id number] [address] STATES [place] [facility] MCHC (RBC) [Mass/Vol] 31.2 g/dL Normal 30.5-36.0 [facility] Comment on above: Order Comment: Speci men Type: BLOOD SPECIMENOrdering Facility: [facility] Address: [address] [place] [address] Performed By: #### 5 7021-8 ####[facility] LABORATORYCLIA [id number] [address] [place] MCV (RBC) [Entitic vol] 92.8 fL Normal 80.0-100.0 [facility] Comment on above: Order Comment: Speci men Type: BLOOD SPECIMENOrdering Facility: [facility] Address: [address] [place] [address] Performed By: #### 5 7021-8 ####[facility]ORATORYCLIA [id number] [address] Monocytes (Bld) [#/Vol] 0.71 10*3/uL Normal <0.87 [facility] Comment on above: Order Comment: Speci men Type: BLOOD SPECIMENOrdering Facility: [facility] Address: [address] [place] [address] Performed By: #### 5 7021-8 ####[facility]ORATORYCLIA [id number] [address] Monocytes/100 WBC (Bld) 6.1 % Normal [facility] Comment on above: Order Comment: Speci men Type: BLOOD SPECIMENOrdering Facility: [facility] Address: [address] [place] [address] Performed By: #### 5 7021-8 ####[facility] LABORATORYCLIA [id number] [address] [place] Neutrophils (Bld) [#/Vol] 8.19 10*3/uL High 1.45-7.50 [facility] Comment on above: Order Comment: Speci men Type: BLOOD SPECIMENOrdering Facility: [facility] Address: [address] [address] Performed By: #### 5 7021-8 ####[facility]ORATORYCLIA [id number] [address] Neutrophils/100 WBC (Bld) 70.8 % Normal [facility] Comment on above: Order Comment: Speci men Type: BLOOD SPECIMENOrdering Facility: [facility] Address: [address] [place] [address] Performed By: #### 5 7021-8 ####[facility]ORATORYCLIA [id number] [address] [place] Nucleated RBC (Bld) [#/Vol] 10*3/uL Normal <0.01 [facility] Comment on above: Order Comment: Speci men Type: BLOOD SPECIMENOrdering Facility: [facility] Address: [address] [place] [address] Performed By: #### 5 7021-8 ####[facility] LABORATORYCLIA [id number] [address] [place] Nucleated RBC/100 WBC (Bld) [Ratio] 0.0 /100 WBC Normal [facility] Comment on above: Order Comment: Speci men Type: BLOOD SPECIMENOrdering Facility: [facility] Address: [address] [place] [address] Performed By: #### 5 7021-8 ####[facility] LABORATORYCLIA [id number] [place] [address] [place] Platelet mean volume (Bld) [Entitic vol] 9.6 fL Normal 9.0-12.7 [facility] Comment on above: Order Comment: Speci men Type: BLOOD SPECIMENOrdering Facility: [facility] Address: [address] [place] [address] Performed By: #### 5 7021-8 ####[facility]ORATORYCLIA [id number] [place] [address] [place] Platelets (Bld) [#/Vol] 339 10*3/uL Normal 150-400 [facility] Comment on above: Order Comment: Speci men Type: BLOOD SPECIMENOrdering Facility: [facility] Address: [address] [place] [address] Performed By: #### 5 7021-8 ####[facility]ORATORYCLIA [id number] [address] STATES [place] [facility] RBC (Bld) [#/Vol] 3.32 10*6/uL Low 4.20-6.00 [facility] Comment on above: Order Comment: Speci men Type: BLOOD SPECIMENOrdering Facility: [facility] Address: [address] [place] [address] Performed By: #### 5 7021-8 ####[facility] LABORATORYCLIA [id number] [address] OF [facility] WBC (Bld) [#/Vol] 11.59 10*3/uL High 3.70-11.00 [facility] Comment on above: Order Comment: Speci men Type: BLOOD SPECIMENOrdering Facility: [facility] Address: [address] [place] [address] Performed By: #### 5 7021-8 ####[facility]ORATORYCLIA [id number] [address] BRAIN WO IVCONon 08-06-19 CT BRAIN WO IVCON Normal [facility] Magnesium SerPl-mCncon 08-05 Magnesium [Mass/Vol] 2.2 mg/dL Normal 1.7-2.3 [facility] Comment on above: Order Comment: Speci men Type: BLOOD SPECIMENOrdering Facility: [facility] Address: [address] [place] [address] Performed By: #### 1 9123-9, 2777-1 ####[facility] LABORATORYCLIA [id number] [address] OF [facility] NURSING PROGon 08-05-2021 NURSING PROG Normal [facility] NURSING PROG Normal [facility] NUTRITIONon 08-05-2021 NUTRITION Normal [facility] OPERATIVE NOon 08-05-2021 OPERATIVE NO Normal [facility] Phosphate SerPl-mCncon 08-05 Phosphate [Mass/Vol] 4.6 mg/dL Normal 2.7-4.8 [facility] Comment on above: Order Comment: Speci men Type: BLOOD SPECIMENOrdering Facility: [facility] Address: [address] [place] [address] Performed By: #### 1 9123-9, 2777-1 ####[facility]ORATORYCLIA [id number] [address] [place] THERAPY NTon 08-05-2021 THERAPY NT Normal [facility] THERAPY NT Normal [facility] Urinalysis complete panel (U )on 08-05-2021 Bilirubin Ql (U) Negative Normal Negative [facility] Comment on above: Order Comment: Speci men Type: URINE SPECIMENOrdering Facility: [facility] Address: [address] [place] [address] Performed By: #### 2 4356-8 ####[facility]CL[facility] [id number] [address] [place] Clarity (Unsp spec) Clear Normal Clear [facility] Comment on above: Order Comment: Speci men Type: URINE SPECIMENOrdering Facility: [facility] Address: [address] [place] [address] Performed By: #### 2 4356-8 ####[facility]ORATORYCLIA [id number] [address] [place] Color (U) Light Yellow Normal yellow [facility] Comment on above: Order Comment: Speci men Type: URINE SPECIMENOrdering Facility: [facility] Address: [address] [place] [address] Performed By: #### 2 4356-8 ####[facility]ORATORYCLIA [id number] [address] [place] Epithelial cells LM.HPF (Urine sed) [#/Area] Few Abnormal None Seen [facility] Comment on above: Order Comment: Speci men Type: URINE SPECIMENOrdering Facility: [facility] Address: [address] [place] [address] Performed By: #### 2 4356-8 ####[facility]ORATORYCLIA [id number] [address] [place] Glucose Test strip (U) [Mass/Vol] Negative Normal Negative [facility] Comment on above: Order Comment: Speci men Type: URINE SPECIMENOrdering Facility: [facility] Address: [address] [place] [address] Performed By: #### 2 4356-8 ####[facility]ORATORYCLIA [id number] [address] [place] [facility] Hemoglobin Ql (U) Negative Normal Negative [facility] Comment on above: Order Comment: Speci men Type: URINE SPECIMENOrdering Facility: [facility] Address: [address] [place] [address] Performed By: #### 2 4356-8 ####[facility]ORATORYCLIA [id number] [address] STATES [place] [facility] Hyaline casts (Urine sed) [#/Area] 1-3 /LPF Abnormal 0 /LPF [facility] Comment on above: Order Comment: Speci men Type: URINE SPECIMENOrdering Facility: [facility] Address: [address] [place] [address] Performed By: #### 2 4356-8 ####[facility]ORATORYCLIA [id number] [address] [place] Ketones Ql (U) Negative Normal Negative [facility] Comment on above: Order Comment: Speci men Type: URINE SPECIMENOrdering Facility: [facility] Address: [address] [place] [address] Performed By: #### 2 4356-8 ####[facility]ORATORYCLIA [id number] [address] [place] Leukocyte esterase Test strip Ql (U) Negative Normal Negative [facility] Comment on above: Order Comment: Speci men Type: URINE SPECIMENOrdering Facility: [facility] Address: [address] [place] [address] Performed By: #### 2 4356-8 ####[facility]ORATORYCLIA [id number] [address] [place] Nitrite Ql (U) Negative Normal Negative [facility] Comment on above: Order Comment: Speci men Type: URINE SPECIMENOrdering Facility: [facility] Address: [address] [place] [address] Performed By: #### 2 4356-8 ####[facility]ORATORYCLIA [id number] [address] pH (U) 6.0 [pH] Normal 5.0-8.0 [facility] Comment on above: Order Comment: Speci men Type: URINE SPECIMENOrdering Facility: [facility] Address: [address] [place] [address] Performed By: #### 2 4356-8 ####[facility]ORATORYCLIA [id number] [address] STATES [facility] Protein (U) [Mass/Vol] Negative Normal Negative [facility] Comment on above: Order Comment: Speci men Type: URINE SPECIMENOrdering Facility: [facility] Address: [address] [place] [address] Performed By: #### 2 4356-8 ####[facility]ORATORYCLIA [id number] [address] [place] RBC LM.HPF (Urine sed) [#/Area] 0-3 /HPF Normal 0-3 /HPF [facility] Comment on above: Order Comment: Speci men Type: URINE SPECIMENOrdering Facility: [facility] Address: [address] [place] [address] Performed By: #### 2 4356-8 ####[facility]ORATORYCLIA [id number] [address] [place] Specific gravity (U) [Rel density] 1.015 Normal 1.005-1.030 [facility] Comment on above: Order Comment: Speci men Type: URINE SPECIMENOrdering Facility: [facility] Address: [address] [place] [address] Performed By: #### 2 4356-8 ####[facility]ORATORYCLIA [id number] [address] [place] Urobilinogen Ql (U) Normal Normal Negative [facility] Comment on above: Order Comment: Speci men Type: URINE SPECIMENOrdering Facility: [facility] Address: [address] [place] [address] Performed By: #### 2 4356-8 ####[facility]ORATORYCLIA [id number] [address] [place] WBC LM.HPF (Urine sed) [#/Area] 0-5 /HPF Normal 0-5 /HPF [facility] Comment on above: Order Comment: Speci men Type: URINE SPECIMENOrdering Facility: [facility] Address: [address] [place] [address] Performed By: #### 2 4356-8 ####[facility]ORATORYCLIA [id number] [address] [place] XR ABDOMEN 1V [...] on above: Performed By: #### 6 00-7 ####[facility]ORATORYCLIA [id number] [address] Bacteria identified Cx Nom (Bld) CULTURE, BLOOD: No growth 5 days Normal [facility] Comment on above: Performed By: #### 6 00-7 ####[facility]ORATORYCLIA [id number] [address] [place] CBC W Auto Differential pane l (Bld)on 08-04-2021 Basophils (Bld) [#/Vol] 0.05 10*3/uL Normal <0.11 [facility] Comment on above: Order Comment: Speci men Type: BLOOD SPECIMENOrdering Facility: [facility] Address: [address] [place] [address] Performed By: #### 5 7021-8 ####[facility]ORATORYCLIA [id number] [address] Basophils/100 WBC (Bld) 0.4 % Normal [facility] Comment on above: Order Comment: Speci men Type: BLOOD SPECIMENOrdering Facility: [facility] Address: [address] [place] [address] Performed By: #### 5 7021-8 ####[facility]ORATORYCLIA [id number] [address] Differential cell count method Nom (Bld) Auto Normal [facility] Comment on above: Order Comment: Speci men Type: BLOOD SPECIMENOrdering Facility: [facility] Address: [address] [address] Performed By: #### 5 7021-8 ####[facility]ORATORYCLIA [id number] [address] STATES [place] [facility] Eosinophils (Bld) [#/Vol] 0.21 10*3/uL Normal <0.46 [facility] Comment on above: Order Comment: Speci men Type: BLOOD SPECIMENOrdering Facility: [facility] Address: [address] [address] Performed By: #### 5 7021-8 ####[facility]ORATORYCLIA [id number] [address] Eosinophils/100 WBC (Bld) 1.7 % Normal [facility] Comment on above: Order Comment: Speci men Type: BLOOD SPECIMENOrdering Facility: [facility] Address: [address] [place] [address] Performed By: #### 5 7021-8 ####[facility]ORATORYCLIA [id number] [address] Erythrocyte distribution width (RBC) [Ratio] 18.1 % High 11.5-15.0 [facility] Comment on above: Order Comment: Speci men Type: BLOOD SPECIMENOrdering Facility: [facility] Address: [address] [place] [address] Performed By: #### 5 7021-8 ####[facility]ORATORYCLIA [id number] [address] Hematocrit (Bld) [Volume fraction] 32.0 % Low 39.0-51.0 [facility] Comment on above: Order Comment: Speci men Type: BLOOD SPECIMENOrdering Facility: [facility] Address: [address] [place] [address] Performed By: #### 5 7021-8 ####[facility]ORATORYCLIA [id number] [address] [place] Hemoglobin (Bld) [Mass/Vol] 10.0 g/dL Low 13.0-17.0 [facility] Comment on above: Order Comment: Speci men Type: BLOOD SPECIMENOrdering Facility: [facility] Address: [address] [place] [address] Performed By: #### 5 7021-8 ####[facility]ORATORYCLIA [id number] [address] IMMATURE GRAN % 0.6 % Normal [facility] Comment on above: Order Comment: Speci men Type: BLOOD SPECIMENOrdering Facility: [facility] Address: [address] [place] [address] Performed By: #### 5 7021-8 ####[facility]ORATORYCLIA [id number] [address] IMMATURE GRAN ABS 0.08 k/uL Normal <0.10 [facility] Comment on above: Order Comment: Speci men Type: BLOOD SPECIMENOrdering Facility: [facility] Address: [address] [place] [address] Performed By: #### 5 7021-8 ####[facility]ORATORYCLIA [id number] [address] Lymphocytes (Bld) [#/Vol] 2.55 10*3/uL Normal 1.00-4.00 [facility] Comment on above: Order Comment: Speci men Type: BLOOD SPECIMENOrdering Facility: [facility] Address: [address] [place] [address] Performed By: #### 5 7021-8 ####[facility]ORATORYCLIA [id number] [address] Lymphocytes/100 WBC (Bld) 20.5 % Normal [facility] Comment on above: Order Comment: Speci men Type: BLOOD SPECIMENOrdering Facility: [facility] Address: [address] [place] [address] Performed By: #### 5 7021-8 ####[facility]ORATORYCLIA [id number] [address] MCH (RBC) [Entitic mass] 28.9 pg Normal 26.0-34.0 [facility] Comment on above: Order Comment: Speci men Type: BLOOD SPECIMENOrdering Facility: [facility] Address: [address] [place] [address] Performed By: #### 5 7021-8 ####[facility]ORATORYCLIA [id number] [address] MCHC (RBC) [Mass/Vol] 31.3 g/dL Normal 30.5-36.0 [facility] Comment on above: Order Comment: Speci men Type: BLOOD SPECIMENOrdering Facility: [facility] Address: [address] [address] Performed By: #### 5 7021-8 ####[facility]ORATORYCLIA [id number] [address] [place] MCV (RBC) [Entitic vol] 92.5 fL Normal 80.0-100.0 [facility] Comment on above: Order Comment: Speci men Type: BLOOD SPECIMENOrdering Facility: [facility] Address: [address] [place] [address] Performed By: #### 5 7021-8 ####[facility]ORATORYCLIA [id number] [address] [place] Monocytes (Bld) [#/Vol] 0.85 10*3/uL Normal <0.87 [facility] Comment on above: Order Comment: Speci men Type: BLOOD SPECIMENOrdering Facility: [facility] Address: [address] [place] [address] Performed By: #### 5 7021-8 ####[facility]ORATORYCLIA [id number] [address] Monocytes/100 WBC (Bld) 6.8 % Normal [facility] Comment on above: Order Comment: Speci men Type: BLOOD SPECIMENOrdering Facility: [facility] Address: [address] [place] [address] Performed By: #### 5 7021-8 ####[facility]ORATORYCLIA [id number] [address] [place] Neutrophils (Bld) [#/Vol] 8.68 10*3/uL High 1.45-7.50 [facility] Comment on above: Order Comment: Speci men Type: BLOOD SPECIMENOrdering Facility: [facility] Address: [address] [place] [address] Performed By: #### 5 7021-8 ####[facility]ORATORYCLIA [id number] [address] Neutrophils/100 WBC (Bld) 70.0 % Normal [facility] Comment on above: Order Comment: Speci men Type: BLOOD SPECIMENOrdering Facility: [facility] Address: [address] [place] [address] Performed By: #### 5 7021-8 ####[facility]ORATORYCLIA [id number] [address] [place] Nucleated RBC (Bld) [#/Vol] 10*3/uL Normal <0.01 [facility] Comment on above: Order Comment: Speci men Type: BLOOD SPECIMENOrdering Facility: [facility] Address: [address] [place] [address] Performed By: #### 5 7021-8 ####[facility]ORATORYCLIA [id number] [address] Nucleated RBC/100 WBC (Bld) [Ratio] 0.0 /100 WBC Normal [facility] Comment on above: Order Comment: Speci men Type: BLOOD SPECIMENOrdering Facility: [facility] Address: [address] [place] [address] Performed By: #### 5 7021-8 ####[facility]ORATORYCLIA [id number] [address] [place] Platelet mean volume (Bld) [Entitic vol] 10.0 fL Normal 9.0-12.7 [facility] Comment on above: Order Comment: Speci men Type: BLOOD SPECIMENOrdering Facility: [facility] Address: [address] Performed By: #### 5 7021-8 ####[facility]ORATORYCLIA [id number] [address] [place] Platelets (Bld) [#/Vol] 393 10*3/uL Normal 150-400 [facility] Comment on above: Order Comment: Speci men Type: BLOOD SPECIMENOrdering Facility: [facility] Address: [address] [place] [address] Performed By: #### 5 7021-8 ####[facility]ORATORYCLIA [id number] [address] OF [facility] RBC (Bld) [#/Vol] 3.46 10*6/uL Low 4.20-6.00 [facility] Comment on above: Order Comment: Speci men Type: BLOOD SPECIMENOrdering Facility: [facility] Address: [address] [place] [address] Performed By: #### 5 7021-8 ####[facility]ORATORYCLIA [id number] [address] OF [facility] WBC (Bld) [#/Vol] 12.42 10*3/uL High 3.70-11.00 [facility] Comment on above: Order Comment: Speci men Type: BLOOD SPECIMENOrdering Facility: [facility] Address: [address] [place] [address] Performed By: #### 5 7021-8 ####[facility] LABORATORYCLIA [id number] [address] [place] BRAIN WO IVCONon 08-05-[address] BRAIN WO IVCON Normal [facility] Lactate (Bld) [Moles/Vol]on 08-04-2021 Lactate [Moles/Vol] 1.4 mmol/L Normal 0.5-2.2 [facility] Comment on above: Order Comment: Speci men Type: BLOOD SPECIMENOrdering Facility: [facility] Address: [address] [place] [address] Performed By: #### 3 2693-4 ####[facility] LABORATORYCLIA [id number] [address] PROCALCITONIN (LAB)on 2021 Procalcitonin [Mass/Vol] 0.08 ng/mL Normal <0.09 [facility] Comment on above: Order Comment: Speci men Type: BLOOD SPECIMENOrdering Facility: [facility] Address: [address] [place] [address] Result Comment: For a guided interpretation of test results, please visit the Change in Procalcitonin Calculator, [email or web address]. Performed By: #### P ROCAL ####[facility] LABORATORYCLIA [id number] [address] Prealbumin [Mass/Vol]on 07-07 Prealbumin Nephelometry [Mass/Vol] 35 mg/dL Normal 17-36 [facility] Comment on above: Order Comment: Speci men Type: BLOOD SPECIMENOrdering Facility: [facility] Address: [address] [place] [address] Performed By: #### 1 4338-8 ####[facility] LABORATORYCLIA [id number] [address] SARS-CoV-2 RNA Resp Ql MEGAN+p robeon 08-04-2021 SARS-CoV-2 (COVID-19) RNA MEGAN+probe Ql (Resp) COVID 19 RESULT: SARS-CoV-2 (Agent of COVID-19) Not Detected by RT-PCR or equivalent method. This test has been authorized by FDA under an Emergency Use Authorization (EUA). Normal [facility] Comment on above: Performed By: #### 9 4500-6 ####[facility] LABORATORYCLIA [id number] [address] TYPE AND SCREENon 08-04-2021 ABO O Normal [facility] Comment on above: Order Comment: Speci men Type: BLOOD SPECIMENOrdering Facility: [facility] Address: [address] [place] [address] Performed By: #### T SCR ####[facility] BLOOD BANKCLIA [id number] [address] HISTORICAL AB SCR STATUS Negative Normal [facility] Comment on above: Order Comment: Speci men Type: BLOOD SPECIMENOrdering Facility: [facility] Address: [address] [place] [address] Performed By: #### T SCR ####[facility] BLOOD BANKCLIA [id number] [address] [facility] Rh Nom (Bld) Positive Normal [facility] Comment on above: Order Comment: Speci men Type: BLOOD SPECIMENOrdering Facility: [facility] Address: [address] [place] [address] Performed By: #### T SCR ####[facility] BLOOD BANKCLIA [id number] [address] TYPE AND SCREEN EXPIRATION 08/07/2021 23:59 Normal [facility] Comment on above: Order Comment: Speci men Type: BLOOD SPECIMENOrdering Facility: [facility] Address: [address] [place] [address] Performed By: #### T SCR ####[facility] BLOOD BANKCLIA [id number] [address] [place] aPTT PPPon 08-04-2021 aPTT Coag (PPP) [Time] 51.8 s High 23.0-32.4 [facility] Comment on above: Order Comment: Speci men Type: BLOOD SPECIMENOrdering Facility: [facility] Address: [address] [place] [address] Performed By: #### 1 4979-9 ####[facility] LABORATORYCLIA [id number] [address] [place] Basic metabolic 2000 panelon 08-03-2021 Anion gap [Moles/Vol] 9 mmol/L Normal 9-18 [facility] Comment on above: Order Comment: Speci men Type: BLOOD SPECIMENOrdering Facility: [facility] Address: [address] [place] [address] Performed By: #### 2 4321-2, 49145-3, 2777-1 ####[facility] LABORATORYCLIA [id number] [address] [facility] Calcium [Mass/Vol] 9.3 mg/dL Normal 8.5-10.2 [facility] Comment on above: Order Comment: Speci men Type: BLOOD SPECIMENOrdering Facility: [facility] Address: [address] [place], [place] [address] Performed By: #### 2 4321-2, , 2776-05 ####[facility] LABORATORYCLIA [id number] [place] [address] [place] Chloride [Moles/Vol] 97 mmol/L Normal 97-105 [facility] Comment on above: Order Comment: Speci men Type: BLOOD SPECIMENOrdering Facility: [facility] Address: [address] [place] [address] Performed By: #### 2 4321-2, , 2776-05 ####[facility] LABORATORYCLIA [id number] [address] [place] CO2 [Moles/Vol] 27 mmol/L Normal 22-30 [facility] Comment on above: Order Comment: Speci men Type: BLOOD SPECIMENOrdering Facility: [facility] Address: [address] [place] [address] Performed By: #### 2 4321-2, , 2776-05 ####[facility] LABORATORYCLIA [id number] [address] [place] Creatinine [Mass/Vol] 0.63 mg/dL Low 0.73-1.22 [facility] Comment on above: Order Comment: Speci men Type: BLOOD SPECIMENOrdering Facility: [facility] Address: [address] [place] [address] Performed By: #### 2 4321-2, , 2776-05 ####[facility] LABORATORYCLIA [id number] [address] [facility] ESTIMATED GLOMERULAR FILTRATION RATE 103 mL/min/1.73m??? Normal >=60 [facility] Comment on above: Order Comment: Speci men Type: BLOOD SPECIMENOrdering Facility: [facility] Address: [address] [place] [address] Result Comment: Luzmaria mated Glomerular Filtration Rate [...] 4321-2, , 2776-05 ####[facility] LABORATORYCLIA [id number] [place] [address] [place] Glucose [Mass/Vol] 136 mg/dL High 74-99 [facility] Comment on above: Order Comment: Shira feldman Type: BLOOD SPECIMENOrdering Facility: [facility] Address: [address] [place], [place] [address] Result Comment: The [place] [employer] (ADA) provides guidance for cutoff [...] Standards of Medical Care in Diabetes 2016, [place] [employer]. Diabetes Care. 2016.39(Suppl 1). Performed By: #### 2 4321-2, , 2776-05 ####[facility] LABORATORYCLIA [id number] [place] [address] [place] Potassium [Moles/Vol] 4.1 mmol/L Normal 3.7-5.1 [facility] Comment on above: Order Comment: Shira feldman Type: BLOOD SPECIMENOrdering Facility: [facility] Address: [address] [place] [address] Performed By: #### 2 4321-2, , 2776-05 ####[facility] LABORATORYCLIA [id number] [place] [address] [place] Sodium [Moles/Vol] 133 mmol/L Low 136-144 [facility] Comment on above: Order Comment: Speci men Type: BLOOD SPECIMENOrdering Facility: [facility] Address: [address] [place] [address] Performed By: #### 2 4321-2, 68279-2, 2777-1 ####[facility] LABORATORYCLIA [id number] [address] [place] Urea nitrogen [Mass/Vol] 40 mg/dL High 9-24 [facility] Comment on above: Order Comment: Speci men Type: BLOOD SPECIMENOrdering Facility: [facility] Address: [address] [place] [address] Performed By: #### 2 4321-2, , 27711-04 ####[facility] LABORATORYCLIA [id number] [address] CASE MANAGEMon 08-03-2021 CASE MANAGEM Normal [facility] CBC W Auto Differential pane l (Bld)on 08-03-2021 Basophils (Bld) [#/Vol] 0.06 10*3/uL Normal <0.11 [facility] Comment on above: Order Comment: Speci men Type: BLOOD SPECIMENOrdering Facility: [facility] Address: [address] [place] [address] Performed By: #### 5 7021-8 ####[facility] LABORATORYCLIA [id number] [address] [place] Basophils/100 WBC (Bld) 0.5 % Normal [facility] Comment on above: Order Comment: Speci men Type: BLOOD SPECIMENOrdering Facility: [facility] Address: [address] [place] [address] Performed By: #### 5 7021-8 ####[facility] LABORATORYCLIA [id number] [address] [place] Differential cell count method Nom (Bld) Auto Normal [facility] Comment on above: Order Comment: Speci men Type: BLOOD SPECIMENOrdering Facility: [facility] Address: [address] [place] [place] [address] Performed By: #### 5 7021-8 ####[facility] LABORATORYCLIA [id number] [address] Eosinophils (Bld) [#/Vol] 0.23 10*3/uL Normal <0.46 [facility] Comment on above: Order Comment: Speci men Type: BLOOD SPECIMENOrdering Facility: [facility] Address: [address] [place] [address] Performed By: #### 5 7021-8 ####[facility] LABORATORYCLIA [id number] [address] Eosinophils/100 WBC (Bld) 1.8 % Normal [facility] Comment on above: Order Comment: Speci men Type: BLOOD SPECIMENOrdering Facility: [facility] Address: [address] [place] [address] Performed By: #### 5 7021-8 ####[facility] LABORATORYCLIA [id number] [address] Erythrocyte distribution width (RBC) [Ratio] 17.6 % High 11.5-15.0 [facility] Comment on above: Order Comment: Speci men Type: BLOOD SPECIMENOrdering Facility: [facility] Address: [address] [place] [address] Performed By: #### 5 7021-8 ####[facility] LABORATORYCLIA [id number] [address] Hematocrit (Bld) [Volume fraction] 30.7 % Low 39.0-51.0 [facility] Comment on above: Order Comment: Speci men Type: BLOOD SPECIMENOrdering Facility: [facility] Address: [address] [place] [address] Performed By: #### 5 7021-8 ####[facility] LABORATORYCLIA [id number] [place] [address] [place] Hemoglobin (Bld) [Mass/Vol] 9.3 g/dL Low 13.0-17.0 [facility] Comment on above: Order Comment: Speci men Type: BLOOD SPECIMENOrdering Facility: [facility] Address: [address] [place] [address] Performed By: #### 5 7021-8 ####[facility]ORATORYCLIA [id number] [address] [place] IMMATURE GRAN % 0.6 % Normal [facility] Comment on above: Order Comment: Speci men Type: BLOOD SPECIMENOrdering Facility: [facility] Address: [address] [place] [address] Performed By: #### 5 7021-8 ####[facility] LABORATORYCLIA [id number] [address] [facility] IMMATURE GRAN ABS 0.08 k/uL Normal <0.10 [facility] Comment on above: Order Comment: Speci men Type: BLOOD SPECIMENOrdering Facility: [facility] Address: [address] [place] [address] Performed By: #### 5 7021-8 ####[facility] LABORATORYCLIA [id number] [place] [address] [place] Lymphocytes (Bld) [#/Vol] 2.45 10*3/uL Normal 1.00-4.00 [facility] Comment on above: Order Comment: Speci men Type: BLOOD SPECIMENOrdering Facility: [facility] Address: [address] [place] [address] Performed By: #### 5 7021-8 ####[facility] LABORATORYCLIA [id number] [address] [place] Lymphocytes/100 WBC (Bld) 19.7 % Normal [facility] Comment on above: Order Comment: Speci men Type: BLOOD SPECIMENOrdering Facility: [facility] Address: [address] [place] [address] Performed By: #### 5 7021-8 ####[facility]ORATORYCLIA [id number] [address] MCH (RBC) [Entitic mass] 28.2 pg Normal 26.0-34.0 [facility] Comment on above: Order Comment: Speci men Type: BLOOD SPECIMENOrdering Facility: [facility] Address: [address] [place] [address] Performed By: #### 5 7021-8 ####[facility] LABORATORYCLIA [id number] [address] [facility] MCHC (RBC) [Mass/Vol] 30.3 g/dL Low 30.5-36.0 [facility] Comment on above: Order Comment: Speci men Type: BLOOD SPECIMENOrdering Facility: [facility] Address: [address] [place] [address] Performed By: #### 5 7021-8 ####[facility] LABORATORYCLIA [id number] [address] [facility] MCV (RBC) [Entitic vol] 93.0 fL Normal 80.0-100.0 [facility] Comment on above: Order Comment: Speci men Type: BLOOD SPECIMENOrdering Facility: [facility] Address: [address] [place] [address] Performed By: #### 5 7021-8 ####[facility] LABORATORYCLIA [id number] [address] [facility] Monocytes (Bld) [#/Vol] 0.72 10*3/uL Normal <0.87 [facility] Comment on above: Order Comment: Speci men Type: BLOOD SPECIMENOrdering Facility: [facility] Address: [address] [place] [address] Performed By: #### 5 7021-8 ####[facility] LABORATORYCLIA [id number] [address] Monocytes/100 WBC (Bld) 5.8 % Normal [facility] Comment on above: Order Comment: Speci men Type: BLOOD SPECIMENOrdering Facility: [facility] Address: [address] [place] [address] Performed By: #### 5 7021-8 ####[facility] LABORATORYCLIA [id number] [address] [place] Neutrophils (Bld) [#/Vol] 8.92 10*3/uL High 1.45-7.50 [facility] Comment on above: Order Comment: Speci men Type: BLOOD SPECIMENOrdering Facility: [facility] Address: [address] [place] [address] Performed By: #### 5 7021-8 ####[facility] LABORATORYCLIA [id number] [address] [place] [facility] Neutrophils/100 WBC (Bld) 71.6 % Normal [facility] Comment on above: Order Comment: Speci men Type: BLOOD SPECIMENOrdering Facility: [facility] Address: [address] [place] [address] Performed By: #### 5 7021-8 ####[facility] LABORATORYCLIA [id number] [address] [place] Nucleated RBC (Bld) [#/Vol] 10*3/uL Normal <0.01 [facility] Comment on above: Order Comment: Speci men Type: BLOOD SPECIMENOrdering Facility: [facility] Address: [address] [place] [address] Performed By: #### 5 7021-8 ####[facility] LABORATORYCLIA [id number] [address] [place] Nucleated RBC/100 WBC (Bld) [Ratio] 0.0 /100 WBC Normal [facility] Comment on above: Order Comment: Speci men Type: BLOOD SPECIMENOrdering Facility: [facility] Address: [address] [place] [address] Performed By: #### 5 7021-8 ####[facility] LABORATORYCLIA [id number] [address] [place] Platelet mean volume (Bld) [Entitic vol] 10.2 fL Normal 9.0-12.7 [facility] Comment on above: Order Comment: Speci men Type: BLOOD SPECIMENOrdering Facility: [facility] Address: [address] [place] [address] Performed By: #### 5 7021-8 ####[facility] LABORATORYCLIA [id number] [address] [place] Platelets (Bld) [#/Vol] 352 10*3/uL Normal 150-400 [facility] Comment on above: Order Comment: Speci men Type: BLOOD SPECIMENOrdering Facility: [facility] Address: [address] [place] [address] Performed By: #### 5 7021-8 ####[facility] LABORATORYCLIA [id number] [place] [address] [place] RBC (Bld) [#/Vol] 3.30 10*6/uL Low 4.20-6.00 [facility] Comment on above: Order Comment: Speci men Type: BLOOD SPECIMENOrdering Facility: [facility] Address: [address] [place] [address] Performed By: #### 5 7021-8 ####[facility] LABORATORYCLIA [id number] [address] [facility] WBC (Bld) [#/Vol] 12.46 10*3/uL High 3.70-11.00 [facility] Comment on above: Order Comment: Speci men Type: BLOOD SPECIMENOrdering Facility: [facility] Address: [address] [place] [address] Performed By: #### 5 7021-8 ####[facility] LABORATORYCLIA [id number] [address] [facility] CONSULT PROGon 08-03-2021 CONSULT PROG Normal [facility] Magnesium SerPl-mCncon 08-03 Magnesium [Mass/Vol] 2.2 mg/dL Normal 1.7-2.3 [facility] Comment on above: Order Comment: Speci men Type: BLOOD SPECIMENOrdering Facility: [facility] Address: [address] [place] [address] Performed By: #### 2 4321-2, 11610-4, 2777 ####[facility] LABORATORYCLIA [id number] [address] [facility] NURSING PROGon 08-03-2021 NURSING PROG Normal [facility] Phosphate SerPl-mCncon 08-03 Phosphate [Mass/Vol] 4.2 mg/dL Normal 2.7-4.8 [facility] Comment on above: Order Comment: Speci men Type: BLOOD SPECIMENOrdering Facility: [facility] Address: [address] [place] [address] Performed By: #### 2 4321-2, , 2777 ####[facility] LABORATORYCLIA [id number] [address] aPTT PPPon 08-03-2021 aPTT Coag (PPP) [Time] 50.0 s High 23.0-32.4 [facility] Comment on above: Order Comment: Speci men Type: BLOOD SPECIMENOrdering Facility: [facility] Address: [address] [place] [address] Performed By: #### 1 4979-9 ####[facility] LABORATORYCLIA [id number] [address] [facility] CBC W Auto Differential pane l (Bld)on 08-02-2021 Basophils (Bld) [#/Vol] 10*3/uL Normal <0.11 [facility] Comment on above: Order Comment: Speci men Type: BLOOD SPECIMENOrdering Facility: [facility] Address: [address] [place] [address] Performed By: #### 5 7021-8 ####[facility] LABORATORYCLIA [id number] [address] Basophils/100 WBC (Bld) 0.2 % Normal [facility] Comment on above: Order Comment: Speci men Type: BLOOD SPECIMENOrdering Facility: [facility] Address: [address] [place] [address] Performed By: #### 5 7021-8 ####[facility] LABORATORYCLIA [id number] [address] Differential cell count method Nom (Bld) Auto Normal [facility] Comment on above: Order Comment: Speci men Type: BLOOD SPECIMENOrdering Facility: [facility] Address: [address] [place] [address] Performed By: #### 5 7021-8 ####[facility] LABORATORYCLIA [id number] [address] Eosinophils (Bld) [#/Vol] 10*3/uL Normal <0.46 [facility] Comment on above: Order Comment: Speci men Type: BLOOD SPECIMENOrdering Facility: [facility] Address: [address] [place] [address] Performed By: #### 5 7021-8 ####[facility] LABORATORYCLIA [id number] [address] Eosinophils/100 WBC (Bld) 0.0 % Normal [facility] Comment on above: Order Comment: Speci men Type: BLOOD SPECIMENOrdering Facility: [facility] Address: [address] [place] [address] Performed By: #### 5 7021-8 ####[facility] LABORATORYCLIA [id number] [address] Erythrocyte distribution width (RBC) [Ratio] 17.3 % High 11.5-15.0 [facility] Comment on above: Order Comment: Speci men Type: BLOOD SPECIMENOrdering Facility: [facility] Address: [address] [place] [address] Performed By: #### 5 7021-8 ####[facility] LABORATORYCLIA [id number] [address] [place] Hematocrit (Bld) [Volume fraction] 30.8 % Low 39.0-51.0 [facility] Comment on above: Order Comment: Speci men Type: BLOOD SPECIMENOrdering Facility: [facility] Address: [address] [place] [address] Performed By: #### 5 7021-8 ####[facility] LABORATORYCLIA [id number] [address] [place] Hemoglobin (Bld) [Mass/Vol] 9.7 g/dL Low 13.0-17.0 [facility] Comment on above: Order Comment: Speci men Type: BLOOD SPECIMENOrdering Facility: [facility] Address: [address] [place] [address] Performed By: #### 5 7021-8 ####[facility] LABORATORYCLIA [id number] [address] [place] IMMATURE GRAN % 0.5 % Normal [facility] Comment on above: Order Comment: Speci men Type: BLOOD SPECIMENOrdering Facility: [facility] Address: [address] [place] [address] Performed By: #### 5 7021-8 ####[facility] LABORATORYCLIA [id number] [address] IMMATURE GRAN ABS 0.07 k/uL Normal <0.10 [facility] Comment on above: Order Comment: Speci men Type: BLOOD SPECIMENOrdering Facility: [facility] Address: [address] [place] [address] Performed By: #### 5 7021-8 ####[facility] LABORATORYCLIA [id number] [address] [place] Lymphocytes (Bld) [#/Vol] 1.60 10*3/uL Normal 1.00-4.00 [facility] Comment on above: Order Comment: Speci men Type: BLOOD SPECIMENOrdering Facility: [facility] Address: [address] [place] [address] Performed By: #### 5 7021-8 ####[facility]ORATORYCLIA [id number] [address] Lymphocytes/100 WBC (Bld) 12.1 % Normal [facility] Comment on above: Order Comment: Speci men Type: BLOOD SPECIMENOrdering Facility: [facility] Address: [address] [place] [address] Performed By: #### 5 7021-8 ####[facility] LABORATORYCLIA [id number] [address] MCH (RBC) [Entitic mass] 28.6 pg Normal 26.0-34.0 [facility] Comment on above: Order Comment: Speci men Type: BLOOD SPECIMENOrdering Facility: [facility] Address: [address] [place] [address] Performed By: #### 5 7021-8 ####[facility] LABORATORYCLIA [id number] [address] [facility] MCHC (RBC) [Mass/Vol] 31.5 g/dL Normal 30.5-36.0 [facility] Comment on above: Order Comment: Speci men Type: BLOOD SPECIMENOrdering Facility: [facility] Address: [address] [place] [address] Performed By: #### 5 7021-8 ####[facility] LABORATORYCLIA [id number] [address] MCV (RBC) [Entitic vol] 90.9 fL Normal 80.0-100.0 [facility] Comment on above: Order Comment: Speci men Type: BLOOD SPECIMENOrdering Facility: [facility] Address: [address] [place] [address] Performed By: #### 5 7021-8 ####[facility] LABORATORYCLIA [id number] [address] Monocytes (Bld) [#/Vol] 0.39 10*3/uL Normal <0.87 [facility] Comment on above: Order Comment: Speci men Type: BLOOD SPECIMENOrdering Facility: [facility] Address: [address] [address] Performed By: #### 5 7021-8 ####[facility] LABORATORYCLIA [id number] [address] [place] Monocytes/100 WBC (Bld) 3.0 % Normal [facility] Comment on above: Order Comment: Speci men Type: BLOOD SPECIMENOrdering Facility: [facility] Address: [address] [place] [address] Performed By: #### 5 7021-8 ####[facility]ORATORYCLIA [id number] [place] [address] [place] Neutrophils (Bld) [#/Vol] 11.09 10*3/uL High 1.45-7.50 [facility] Comment on above: Order Comment: Speci men Type: BLOOD SPECIMENOrdering Facility: [facility] Address: [address] [place] [address] Performed By: #### 5 7021-8 ####[facility] LABORATORYCLIA [id number] [address] STATES [facility] Neutrophils/100 WBC (Bld) 84.2 % Normal [facility] Comment on above: Order Comment: Speci men Type: BLOOD SPECIMENOrdering Facility: [facility] Address: [address] [place] [address] Performed By: #### 5 7021-8 ####[facility]ORATORYCLIA [id number] [address] [place] Nucleated RBC (Bld) [#/Vol] 10*3/uL Normal <0.01 [facility] Comment on above: Order Comment: Speci men Type: BLOOD SPECIMENOrdering Facility: [facility] Address: [address] [place] [address] Performed By: #### 5 7021-8 ####[facility]ATORYCLIA [id number] [address] [place] Nucleated RBC/100 WBC (Bld) [Ratio] 0.0 /100 WBC Normal [facility] Comment on above: Order Comment: Speci men Type: BLOOD SPECIMENOrdering Facility: [facility] Address: [address] [place] [address] Performed By: #### 5 7021-8 ####[facility] LABORATORYCLIA [id number] [address] Platelet mean volume (Bld) [Entitic vol] 10.0 fL Normal 9.0-12.7 [facility] Comment on above: Order Comment: Speci men Type: BLOOD SPECIMENOrdering Facility: [facility] Address: [address] [place], [place] [id number] Performed By: #### 5 7021-8 ####[facility] LABORATORYCLIA [id number] [address] [place] Platelets (Bld) [#/Vol] 358 10*3/uL Normal 150-400 [facility] Comment on above: Order Comment: Speci men Type: BLOOD SPECIMENOrdering Facility: [facility] Address: [address] [place] [address] Performed By: #### 5 7021-8 ####[facility] LABORATORYCLIA [id number] [address] [place] RBC (Bld) [#/Vol] 3.39 10*6/uL Low 4.20-6.00 [facility] Comment on above: Order Comment: Speci men Type: BLOOD SPECIMENOrdering Facility: [facility] Address: [address] [place], [place] [address] Performed By: #### 5 7021-8 ####[facility] LABORATORYCLIA [id number] [address] [place] WBC (Bld) [#/Vol] 13.17 10*3/uL High 3.70-11.00 [facility] Comment on above: Order Comment: Speci men Type: BLOOD SPECIMENOrdering Facility: [facility] Address: [address] [place] [address] Performed By: #### 5 7021-8 ####[facility] LABORATORYCLIA [id number] [address] [facility] NURSING PROGon 08-02-2021 NURSING PROG Normal [facility] THERAPY NTon 08-02-2021 THERAPY NT Normal [facility] aPTT PPPon 08-02-2021 aPTT Coag (PPP) [Time] 54.9 s High 23.0-32.4 [facility] Comment on above: Order Comment: Speci men Type: BLOOD SPECIMENOrdering Facility: [facility] Address: [address] [place] [address] Performed By: #### 1 4979-9 ####[facility] LABORATORYCLIA [id number] [address] [facility] ALLIED HEALTHon 08-01-2021 ALLIED HEALTH Normal [facility] ALLIED HEALTH Normal [facility] Basic metabolic 2000 panelon 08-01-2021 Anion gap [Moles/Vol] 12 mmol/L Normal 9-18 [facility] Comment on above: Order Comment: Speci men Type: BLOOD SPECIMENOrdering Facility: [facility] Address: [address] [place] [address] Performed By: #### 2 4321-2, 90515-7, 18185-2, 2777-1 ####[facility] LABORATORYCLIA [id number] [place] [address] [place] Calcium [Mass/Vol] 9.1 mg/dL Normal 8.5-10.2 [facility] Comment on above: Order Comment: Speci men Type: BLOOD SPECIMENOrdering Facility: [facility] Address: [address] [place] [address] Performed By: #### 2 4321-2, 30358-9, 51437-8, 2777-1 ####[facility] LABORATORYCLIA [id number] [place] [address] [place] Chloride [Moles/Vol] 96 mmol/L Low 97-105 [facility] Comment on above: Order Comment: Speci men Type: BLOOD SPECIMENOrdering Facility: [facility] Address: [address] [place] [address] Performed By: #### 2 4321-2, 75512-5, 20650-1, 2777-1 ####[facility] [id number] [address] STATES [facility] CO2 [Moles/Vol] 27 mmol/L Normal 22-30 [facility] Comment on above: Order Comment: Speci men Type: BLOOD SPECIMENOrdering Facility: [facility] Address: [address] [place] [address] Performed By: #### 2 4321-2, 95447-7, 73812-0, 2777-1 ####[facility] [id number] [address] Creatinine [Mass/Vol] 0.64 mg/dL Low 0.73-1.22 [facility] Comment on above: Order Comment: Speci men Type: BLOOD SPECIMENOrdering Facility: [facility] Address: [address] [place] [address] Performed By: #### 2 4321-2, 24597-5, 76089-4, 2777- ####[facility]ITALIA [id number] [address] ESTIMATED GLOMERULAR FILTRATION RATE 102 mL/min/1.73m??? Normal >=60 [facility] Comment on above: Order Comment: Speci men Type: BLOOD SPECIMENOrdering Facility: [facility] Address: [address] [place] [address] Result Comment: Luzmaria mated Glomerular Filtration Rate [...] actual GFR. Performed By: #### 2 4321-2, 44684-7, 08716-5, 2777-1 ####[facility] LABORATORYCLIA [id number] [place] [address] [place] Glucose [Mass/Vol] 122 mg/dL High 74-99 [facility] Comment on above: Order Comment: Shira feldman Type: BLOOD SPECIMENOrdering Facility: [facility] Address: [address] [place], [place] [phone] Result Comment: The [place] [employer] (ADA) provides guidance for cutoff [...] Standards of Medical Care in Diabetes 2016, [place] [employer]. Diabetes Care. 2016.39(Suppl 1). Performed By: #### 2 4321-2, 68467-7, 24289-4, 2777-1 ####[facility] LABORATORYCLIA [id number] [place] [address] [place] Potassium [Moles/Vol] 4.2 mmol/L Normal 3.7-5.1 [facility] Comment on above: Order Comment: Shira feldman Type: BLOOD SPECIMENOrdering Facility: [facility] Address: [address] [place], [place] [phone] Performed By: #### 2 4321-2, 36174-0, 54669-5, 2777-1 ####[facility] LABORATORYCLIA [id number] [place] [address] [place] Sodium [Moles/Vol] 135 mmol/L Low 136-144 [facility] Comment on above: Order Comment: Shira feldman Type: BLOOD SPECIMENOrdering Facility: [facility] Address: [address] [id number] Performed By: #### 2 4321-2, 10109-4, 25504-0, 2777-1 ####[facility] LABORATORYCLIA [id number] [place] [address] [place] Urea nitrogen [Mass/Vol] 36 mg/dL High 9-24 [facility] Comment on above: Order Comment: Speci men Type: BLOOD SPECIMENOrdering Facility: [facility] Address: [address] [place] [address] Performed By: #### 2 4321-2, 99971-6, 06111-8, 2777-1 ####[facility] LABORATORYCLIA [id number] [address] [place] CASE MANAGEMon 08-01-2021 CASE MANAGEM Normal [facility] CBC W Auto Differential pane l (Bld)on 08-01-2021 Basophils (Bld) [#/Vol] 0.04 10*3/uL Normal <0.11 [facility] Comment on above: Order Comment: Speci men Type: BLOOD SPECIMENOrdering Facility: [facility] Address: [address] [place] [address] Performed By: #### 5 7021-8 ####[facility] LABORATORYCLIA [id number] [address] [place] Basophils/100 WBC (Bld) 0.3 % Normal [facility] Comment on above: Order Comment: Speci men Type: BLOOD SPECIMENOrdering Facility: [facility] Address: [address] [place] [address] Performed By: #### 5 7021-8 ####[facility] LABORATORYCLIA [id number] [address] [place] Differential cell count method Nom (Bld) Auto Normal [facility] Comment on above: Order Comment: Speci men Type: BLOOD SPECIMENOrdering Facility: [facility] Address: [address] [place] [address] Performed By: #### 5 7021-8 ####[facility] LABORATORYCLIA [id number] [place] [address] [place] Eosinophils (Bld) [#/Vol] 0.37 10*3/uL Normal <0.46 [facility] Comment on above: Order Comment: Speci men Type: BLOOD SPECIMENOrdering Facility: [facility] Address: [address] [place] [address] Performed By: #### 5 7021-8 ####[facility] LABORATORYCLIA [id number] [address] Eosinophils/100 WBC (Bld) 3.1 % Normal [facility] Comment on above: Order Comment: Speci men Type: BLOOD SPECIMENOrdering Facility: [facility] Address: [address] [place] [address] Performed By: #### 5 7021-8 ####[facility] LABORATORYCLIA [id number] [address] [place] Erythrocyte distribution width (RBC) [Ratio] 17.5 % High 11.5-15.0 [facility] Comment on above: Order Comment: Speci men Type: BLOOD SPECIMENOrdering Facility: [facility] Address: [address] [place] [address] Performed By: #### 5 7021-8 ####[facility] LABORATORYCLIA [id number] [address] STATES [facility] Hematocrit (Bld) [Volume fraction] 30.1 % Low 39.0-51.0 [facility] Comment on above: Order Comment: Speci men Type: BLOOD SPECIMENOrdering Facility: [facility] Address: [address] [place] [address] Performed By: #### 5 7021-8 ####[facility] LABORATORYCLIA [id number] [address] [place] Hemoglobin (Bld) [Mass/Vol] 9.1 g/dL Low 13.0-17.0 [facility] Comment on above: Order Comment: Speci men Type: BLOOD SPECIMENOrdering Facility: [facility] Address: [address] [place] [address] Performed By: #### 5 7021-8 ####[facility]ORATORYCLIA [id number] [address] IMMATURE GRAN % 0.6 % Normal [facility] Comment on above: Order Comment: Speci men Type: BLOOD SPECIMENOrdering Facility: [facility] Address: [address] [place] [address] Performed By: #### 5 7021-8 ####[facility] LABORATORYCLIA [id number] [address] IMMATURE GRAN ABS 0.07 k/uL Normal <0.10 [facility] Comment on above: Order Comment: Speci men Type: BLOOD SPECIMENOrdering Facility: [facility] Address: [address] [place] [address] Performed By: #### 5 7021-8 ####[facility] LABORATORYCLIA [id number] [address] STATES [facility] Lymphocytes (Bld) [#/Vol] 2.05 10*3/uL Normal 1.00-4.00 [facility] Comment on above: Order Comment: Speci men Type: BLOOD SPECIMENOrdering Facility: [facility] Address: [address] [place] [address] Performed By: #### 5 7021-8 ####[facility] LABORATORYCLIA [id number] [address] Lymphocytes/100 WBC (Bld) 17.1 % Normal [facility] Comment on above: Order Comment: Speci men Type: BLOOD SPECIMENOrdering Facility: [facility] Address: [address] [place] [address] Performed By: #### 5 7021-8 ####[facility] LABORATORYCLIA [id number] [address] [place] [facility] MCH (RBC) [Entitic mass] 27.7 pg Normal 26.0-34.0 [facility] Comment on above: Order Comment: Speci men Type: BLOOD SPECIMENOrdering Facility: [facility] Address: [address] [place] [address] Performed By: #### 5 7021-8 ####[facility] LABORATORYCLIA [id number] [address] [place] [facility] MCHC (RBC) [Mass/Vol] 30.2 g/dL Low 30.5-36.0 [facility] Comment on above: Order Comment: Speci men Type: BLOOD SPECIMENOrdering Facility: [facility] Address: [address] [place] [address] Performed By: #### 5 7021-8 ####[facility] LABORATORYCLIA [id number] [address] [place] [facility] MCV (RBC) [Entitic vol] 91.5 fL Normal 80.0-100.0 [facility] Comment on above: Order Comment: Speci men Type: BLOOD SPECIMENOrdering Facility: [facility] Address: [address] [place] [address] Performed By: #### 5 7021-8 ####[facility] LABORATORYCLIA [id number] [address] [place] [facility] Monocytes (Bld) [#/Vol] 0.53 10*3/uL Normal <0.87 [facility] Comment on above: Order Comment: Speci men Type: BLOOD SPECIMENOrdering Facility: [facility] Address: [address] [place] [address] Performed By: #### 5 7021-8 ####[facility] LABORATORYCLIA [id number] [address] Monocytes/100 WBC (Bld) 4.4 % Normal [facility] Comment on above: Order Comment: Speci men Type: BLOOD SPECIMENOrdering Facility: [facility] Address: [address] [place] [address] Performed By: #### 5 7021-8 ####[facility] LABORATORYCLIA [id number] [address] [place] Neutrophils (Bld) [#/Vol] 8.91 10*3/uL High 1.45-7.50 [facility] Comment on above: Order Comment: Speci men Type: BLOOD SPECIMENOrdering Facility: [facility] Address: [address] [place] [address] Performed By: #### 5 7021-8 ####[facility] LABORATORYCLIA [id number] [address] Neutrophils/100 WBC (Bld) 74.5 % Normal [facility] Comment on above: Order Comment: Speci men Type: BLOOD SPECIMENOrdering Facility: [facility] Address: [address] [place] [address] Performed By: #### 5 7021-8 ####[facility] LABORATORYCLIA [id number] [address] [place] Nucleated RBC (Bld) [#/Vol] 10*3/uL Normal <0.01 [facility] Comment on above: Order Comment: Speci men Type: BLOOD SPECIMENOrdering Facility: [facility] Address: [address] [place] [address] Performed By: #### 5 7021-8 ####[facility] LABORATORYCLIA [id number] [address] Nucleated RBC/100 WBC (Bld) [Ratio] 0.0 /100 WBC Normal [facility] Comment on above: Order Comment: Speci men Type: BLOOD SPECIMENOrdering Facility: [facility] Address: [address] [place] [address] Performed By: #### 5 7021-8 ####[facility] LABORATORYCLIA [id number] [address] [place] Platelet mean volume (Bld) [Entitic vol] 10.4 fL Normal 9.0-12.7 [facility] Comment on above: Order Comment: Speci men Type: BLOOD SPECIMENOrdering Facility: [facility] Address: [address] [place] [address] Performed By: #### 5 7021-8 ####[facility]ORATORYCLIA [id number] [address] [facility] Platelets (Bld) [#/Vol] 319 10*3/uL Normal 150-400 [facility] Comment on above: Order Comment: Speci men Type: BLOOD SPECIMENOrdering Facility: [facility] Address: [address] [place] [address] Performed By: #### 5 7021-8 ####[facility] LABORATORYCLIA [id number] [place] [address] [place] RBC (Bld) [#/Vol] 3.29 10*6/uL Low 4.20-6.00 [facility] Comment on above: Order Comment: Speci men Type: BLOOD SPECIMENOrdering Facility: [facility] Address: [address] [place] [address] Performed By: #### 5 7021-8 ####[facility] LABORATORYCLIA [id number] [address] WBC (Bld) [#/Vol] 11.97 10*3/uL High 3.70-11.00 [facility] Comment on above: Order Comment: Speci men Type: BLOOD SPECIMENOrdering Facility: [facility] Address: [address] [place] [address] Performed By: #### 5 7021-8 ####[facility] LABORATORYCLIA [id number] [address] [place] BRAIN WO IVCONon 08-02-19 CT BRAIN WO IVCON Normal [facility] Magnesium SerPl-mCncon 08-01 Magnesium [Mass/Vol] 2.4 mg/dL High 1.7-2.3 [facility] Comment on above: Order Comment: Speci men Type: BLOOD SPECIMENOrdering Facility: [facility] Address: [address] [place] [address] Performed By: #### 2 4321-2, 70350-3, 91584-5, 2777-1 ####[facility] LABORATORYCLIA [id number] [place] [address] NURSING PROGon 08-01-2021 NURSING PROG Normal [facility] NUTRITIONon 08-01-2021 NUTRITION Normal [facility] Phosphate SerPl-mCncon 08-01 Phosphate [Mass/Vol] 3.3 mg/dL Normal 2.7-4.8 [facility] Comment on above: Order Comment: Speci men Type: BLOOD SPECIMENOrdering Facility: [facility] Address: [address] [place] [address] Performed By: #### 2 4321-2, 16143-6, 84652-9, 2777-1 ####[facility] LABORATORYCLIA [id number] [address] Prealbumin [Mass/Vol]on 07-06 Prealbumin Nephelometry [Mass/Vol] 30 mg/dL Normal 17-36 [facility] Comment on above: Order Comment: Speci men Type: BLOOD SPECIMENOrdering Facility: [facility] Address: [address] [place] [address] Performed By: #### 2 4321-2, 76439-5, 39406-7, 2777-1 ####[facility]ORATORYCLIA [id number] [address] THERAPY NTon 08-01-2021 THERAPY NT Normal [facility] THERAPY NT Normal [facility] TYPE AND SCREENon 08-01-2021 ABO O Normal [facility] Comment on above: Order Comment: Speci men Type: BLOOD SPECIMENOrdering Facility: [facility] Address: [address] [place] [address] Performed By: #### T SCR ####[facility] BLOOD BANKCLIA [id number] [address] HISTORICAL AB SCR STATUS Negative Normal [facility] Comment on above: Order Comment: Speci men Type: BLOOD SPECIMENOrdering Facility: [facility] Address: [address] [place] [address] Performed By: #### T SCR ####[facility] BLOOD BANKCLIA [id number] [address] Rh Nom (Bld) Positive Normal [facility] Comment on above: Order Comment: Speci men Type: BLOOD SPECIMENOrdering Facility: [facility] Address: [address] [place] [address] Performed By: #### T SCR ####[facility] BLOOD BANKCLIA [id number] [address] TYPE AND SCREEN EXPIRATION 08/04/2021 23:59 Normal [facility] Comment on above: Order Comment: Speci men Type: BLOOD SPECIMENOrdering Facility: [facility] Address: [address] [place] [address] Performed By: #### T SCR ####[facility] BLOOD BANKCLIA [id number] [address] XR CHEST 1V FRONTALon 2021 XR CHEST 1V FRONTAL Normal [facility] aPTT PPPon 08-01-2021 aPTT Coag (PPP) [Time] 50.9 s High 23.0-32.4 [facility] Comment on above: Order Comment: Speci men Type: BLOOD SPECIMENOrdering Facility: [facility] Address: [address] [place] [address] Performed By: #### 1 4979-9 ####[facility] LABORATORYCLIA [id number] [address] CBC W Auto Differential pane l (Bld)on 07-31-2021 Basophils (Bld) [#/Vol] 0.05 10*3/uL Normal <0.11 [facility] Comment on above: Order Comment: Speci men Type: BLOOD SPECIMENOrdering Facility: [facility] Address: [address] [place] [address] Performed By: #### 5 7021-8 ####[facility] LABORATORYCLIA [id number] [address] Basophils/100 WBC (Bld) 0.4 % Normal [facility] Comment on above: Order Comment: Speci men Type: BLOOD SPECIMENOrdering Facility: [facility] Address: [address] [place] [address] Performed By: #### 5 7021-8 ####[facility] LABORATORYCLIA [id number] [address] [place] Differential cell count method Nom (Bld) Auto Normal [facility] Comment on above: Order Comment: Speci men Type: BLOOD SPECIMENOrdering Facility: [facility] Address: [address] [place] [address] Performed By: #### 5 7021-8 ####[facility] LABORATORYCLIA [id number] [address] [place] Eosinophils (Bld) [#/Vol] 0.51 10*3/uL High <0.46 [facility] Comment on above: Order Comment: Speci men Type: BLOOD SPECIMENOrdering Facility: [facility] Address: [address] [place] [address] Performed By: #### 5 7021-8 ####[facility] LABORATORYCLIA [id number] [address] Eosinophils/100 WBC (Bld) 4.5 % Normal [facility] Comment on above: Order Comment: Speci men Type: BLOOD SPECIMENOrdering Facility: [facility] Address: [address] [place] [address] Performed By: #### 5 7021-8 ####[facility] LABORATORYCLIA [id number] [address] [place] Erythrocyte distribution width (RBC) [Ratio] 17.5 % High 11.5-15.0 [facility] Comment on above: Order Comment: Speci men Type: BLOOD SPECIMENOrdering Facility: [facility] Address: [address] [place] [address] Performed By: #### 5 7021-8 ####[facility] LABORATORYCLIA [id number] [address] Hematocrit (Bld) [Volume fraction] 30.4 % Low 39.0-51.0 [facility] Comment on above: Order Comment: Speci men Type: BLOOD SPECIMENOrdering Facility: [facility] Address: [address] [place] [address] Performed By: #### 5 7021-8 ####[facility] LABORATORYCLIA [id number] [address] [place] Hemoglobin (Bld) [Mass/Vol] 9.2 g/dL Low 13.0-17.0 [facility] Comment on above: Order Comment: Speci men Type: BLOOD SPECIMENOrdering Facility: [facility] Address: [address] [place] [address] Performed By: #### 5 7021-8 ####[facility] LABORATORYCLIA [id number] [address] IMMATURE GRAN % 0.5 % Normal [facility] Comment on above: Order Comment: Speci men Type: BLOOD SPECIMENOrdering Facility: [facility] Address: [address] [place] [address] Performed By: #### 5 7021-8 ####[facility] LABORATORYCLIA [id number] [address] IMMATURE GRAN ABS 0.06 k/uL Normal <0.10 [facility] Comment on above: Order Comment: Speci men Type: BLOOD SPECIMENOrdering Facility: [facility] Address: [address] [place] [address] Performed By: #### 5 7021-8 ####[facility] LABORATORYCLIA [id number] [address] [place] Lymphocytes (Bld) [#/Vol] 1.99 10*3/uL Normal 1.00-4.00 [facility] Comment on above: Order Comment: Speci men Type: BLOOD SPECIMENOrdering Facility: [facility] Address: [address] [place] [address] Performed By: #### 5 7021-8 ####[facility] LABORATORYCLIA [id number] [address] Lymphocytes/100 WBC (Bld) 17.6 % Normal [facility] Comment on above: Order Comment: Speci men Type: BLOOD SPECIMENOrdering Facility: [facility] Address: [address] [place] [address] Performed By: #### 5 7021-8 ####[facility] LABORATORYCLIA [id number] [address] MCH (RBC) [Entitic mass] 28.4 pg Normal 26.0-34.0 [facility] Comment on above: Order Comment: Speci men Type: BLOOD SPECIMENOrdering Facility: [facility] Address: [address] [place] [address] Performed By: #### 5 7021-8 ####[facility] LABORATORYCLIA [id number] [address] MCHC (RBC) [Mass/Vol] 30.3 g/dL Low 30.5-36.0 [facility] Comment on above: Order Comment: Speci men Type: BLOOD SPECIMENOrdering Facility: [facility] Address: [address] [place] [address] Performed By: #### 5 7021-8 ####[facility] LABORATORYCLIA [id number] [address] MCV (RBC) [Entitic vol] 93.8 fL Normal 80.0-100.0 [facility] Comment on above: Order Comment: Speci men Type: BLOOD SPECIMENOrdering Facility: [facility] Address: [address] [place] [address] Performed By: #### 5 7021-8 ####[facility] LABORATORYCLIA [id number] [address] Monocytes (Bld) [#/Vol] 0.57 10*3/uL Normal <0.87 [facility] Comment on above: Order Comment: Speci men Type: BLOOD SPECIMENOrdering Facility: [facility] Address: [address] [place] [address] Performed By: #### 5 7021-8 ####[facility] LABORATORYCLIA [id number] [address] [place] Monocytes/100 WBC (Bld) 5.0 % Normal [facility] Comment on above: Order Comment: Speci men Type: BLOOD SPECIMENOrdering Facility: [facility] Address: [address] [place] [address] Performed By: #### 5 7021-8 ####[facility] LABORATORYCLIA [id number] [place] [address] [place] Neutrophils (Bld) [#/Vol] 8.12 10*3/uL High 1.45-7.50 [facility] Comment on above: Order Comment: Speci men Type: BLOOD SPECIMENOrdering Facility: [facility] Address: [address] [place] [address] Performed By: #### 5 7021-8 ####[facility] LABORATORYCLIA [id number] [address] [place] Neutrophils/100 WBC (Bld) 72.0 % Normal [facility] Comment on above: Order Comment: Speci men Type: BLOOD SPECIMENOrdering Facility: [facility] Address: [address] [place] [address] Performed By: #### 5 7021-8 ####[facility] LABORATORYCLIA [id number] [place] [address] [place] Nucleated RBC (Bld) [#/Vol] 10*3/uL Normal <0.01 [facility] Comment on above: Order Comment: Speci men Type: BLOOD SPECIMENOrdering Facility: [facility] Address: [address] [place] [address] Performed By: #### 5 7021-8 ####[facility] LABORATORYCLIA [id number] [address] [place] Nucleated RBC/100 WBC (Bld) [Ratio] 0.0 /100 WBC Normal [facility] Comment on above: Order Comment: Speci men Type: BLOOD SPECIMENOrdering Facility: [facility] Address: [address] [place] [address] Performed By: #### 5 7021-8 ####[facility] LABORATORYCLIA [id number] [place] [address] [place] Platelet mean volume (Bld) [Entitic vol] 10.9 fL Normal 9.0-12.7 [facility] Comment on above: Order Comment: Speci men Type: BLOOD SPECIMENOrdering Facility: [facility] Address: [address] [place] [address] Performed By: #### 5 7021-8 ####[facility] LABORATORYCLIA [id number] [place] [address] [place] Platelets (Bld) [#/Vol] 303 10*3/uL Normal 150-400 [facility] Comment on above: Order Comment: Speci men Type: BLOOD SPECIMENOrdering Facility: [facility] Address: [address] [place] [address] Performed By: #### 5 7021-8 ####[facility] LABORATORYCLIA [id number] [place] [address] [place] RBC (Bld) [#/Vol] 3.24 10*6/uL Low 4.20-6.00 [facility] Comment on above: Order Comment: Speci men Type: BLOOD SPECIMENOrdering Facility: [facility] Address: [address] [place] [address] Performed By: #### 5 7021-8 ####[facility] LABORATORYCLIA [id number] [place] [address] [place] WBC (Bld) [#/Vol] 11.30 10*3/uL High 3.70-11.00 [facility] Comment on above: Order Comment: Speci men Type: BLOOD SPECIMENOrdering Facility: [facility] Address: [address] [place] [address] Performed By: #### 5 7021-8 ####[facility] LABORATORYCLIA [id number] [address] NURSING PROGon 07-31-2021 NURSING PROG Normal [facility] aPTT PPPon 07-31-2021 aPTT Coag (PPP) [Time] 64.9 s High 23.0-32.4 [facility] Comment on above: Order Comment: Speci men Type: BLOOD SPECIMENOrdering Facility: [facility] Address: [address] [place] [address] Performed By: #### 1 4979-9 ####[facility] LABORATORYCLIA [id number] [address] [facility] ALLIED HEALTHon 07-30-2021 ALLIED HEALTH Normal [facility] Bacteria CSF Culton 07-31-19 22 Bacteria identified Cx Nom (CSF) CULTURE, CSF: No growth 14 days GRAM STAIN: No organisms seen Few Mononuclear cells Rare Polymorphonuclear leukocytes Gram stain performed on cytospun specimen. Normal [facility] Comment on above: Performed By: #### 6 06-4 ####[facility] LABORATORYCLIA [id number] [place] [address] [place] Basic metabolic 2000 panelon 07-30-2021 Anion gap [Moles/Vol] 9 mmol/L Normal 9-18 [facility] Comment on above: Order Comment: Speci men Type: BLOOD SPECIMENOrdering Facility: [facility] Address: [address] [place] [address] Performed By: #### 2 777-1, 88920-2, 77160-9 ####[facility] LABORATORYCLIA [id number] [address] STATES [facility] Calcium [Mass/Vol] 8.9 mg/dL Normal 8.5-10.2 [facility] Comment on above: Order Comment: Speci men Type: BLOOD SPECIMENOrdering Facility: [facility] Address: [address] [place] [address] Performed By: #### 2 777-1, 25719-9, ####[facility] LABORATORYCLIA [id number] [place] [address] [place] Chloride [Moles/Vol] 95 mmol/L Low 97-105 [facility] Comment on above: Order Comment: Speci men Type: BLOOD SPECIMENOrdering Facility: [facility] Address: [address] [place] [address] Performed By: #### 2 777-1, 62860-8, ####[facility] LABORATORYCLIA [id number] [place] [id number] [place] CO2 [Moles/Vol] 28 mmol/L Normal 22-30 [facility] Comment on above: Order Comment: Speci men Type: BLOOD SPECIMENOrdering Facility: [facility] Address: [address] [place] [address] Performed By: #### 2 777-1, , ####[facility]ITALCL[facility] [id number] [address] [facility] Creatinine [Mass/Vol] 0.67 mg/dL Low 0.73-1.22 [facility] Comment on above: Order Comment: Speci men Type: BLOOD SPECIMENOrdering Facility: [facility] Address: [address] [place] [address] Performed By: #### 2 777-1, , ####[facility] LABORATORYCLIA [id number] [address] ESTIMATED GLOMERULAR FILTRATION RATE 101 mL/min/1.73m??? Normal >=60 [facility] Comment on above: Order Comment: Speci men Type: BLOOD SPECIMENOrdering Facility: [facility] Address: [address] [place] [address] Result Comment: Luzmaria mated Glomerular Filtration Rate [...] actual GFR. Performed By: #### 2 777-1, 62835-9, ####[facility] LABORATORYCLIA [id number] [place] [address] [place] Glucose [Mass/Vol] 125 mg/dL High 74-99 [facility] Comment on above: Order Comment: Shira feldman Type: BLOOD SPECIMENOrdering Facility: [facility] Address: [address] [place], [place] [address] Result Comment: The [place] Diabetes Association (ADA) provides guidance for cutoff [...] Standards of Medical Care in Diabetes 2016, [place] [employer] Association. Diabetes Care. 2016.39(Suppl 1). Performed By: #### 2 777-1, 38896-0, ####[facility] LABORATORYCLIA [id number] [place] [address] [place] Potassium [Moles/Vol] 3.9 mmol/L Normal 3.7-5.1 [facility] Comment on above: Order Comment: Shira feldman Type: BLOOD SPECIMENOrdering Facility: [facility] Address: [address] [place] [address] Performed By: #### 2 777-1, 64372-0, ####[facility] LABORATORYCLIA [id number] [place] [address] [place] Sodium [Moles/Vol] 132 mmol/L Low 136-144 [facility] Comment on above: Order Comment: Speci men Type: BLOOD SPECIMENOrdering Facility: [facility] Address: [address] [place] [address] Performed By: #### 2 777-1, 56609-9, ####[facility] LABORATORYCLIA [id number] [address] STATES [facility] Urea nitrogen [Mass/Vol] 38 mg/dL High 9-24 [facility] Comment on above: Order Comment: Speci men Type: BLOOD SPECIMENOrdering Facility: [facility] Address: [address] [place] [address] Performed By: #### 2 777-1, 72689-4, ####[facility] LABORATORYCLIA [id number] [address] [place] CBC W Auto Differential pane l (Bld)on 07-30-2021 Basophils (Bld) [#/Vol] 0.04 10*3/uL Normal <0.11 [facility] Comment on above: Order Comment: Speci men Type: BLOOD SPECIMENOrdering Facility: [facility] Address: [address] [place] [address] Performed By: #### 5 7021-8 ####[facility] LABORATORYCLIA [id number] [address] [place] Basophils/100 WBC (Bld) 0.4 % Normal [facility] Comment on above: Order Comment: Speci men Type: BLOOD SPECIMENOrdering Facility: [facility] Address: [address] [place] [address] Performed By: #### 5 7021-8 ####[facility] LABORATORYCLIA [id number] [address] Differential cell count method Nom (Bld) Auto Normal [facility] Comment on above: Order Comment: Speci men Type: BLOOD SPECIMENOrdering Facility: [facility] Address: [address] [place] [address] Performed By: #### 5 7021-8 ####[facility] LABORATORYCLIA [id number] [address] [place] Eosinophils (Bld) [#/Vol] 0.30 10*3/uL Normal <0.46 [facility] Comment on above: Order Comment: Speci men Type: BLOOD SPECIMENOrdering Facility: [facility] Address: [address] [place] [address] Performed By: #### 5 7021-8 ####[facility] LABORATORYCLIA [id number] [address] Eosinophils/100 WBC (Bld) 2.7 % Normal [facility] Comment on above: Order Comment: Speci men Type: BLOOD SPECIMENOrdering Facility: [facility] Address: [address] [place] [address] Performed By: #### 5 7021-8 ####[facility] LABORATORYCLIA [id number] [address] Erythrocyte distribution width (RBC) [Ratio] 17.2 % High 11.5-15.0 [facility] Comment on above: Order Comment: Speci men Type: BLOOD SPECIMENOrdering Facility: [facility] Address: [address] [place] [address] Performed By: #### 5 7021-8 ####[facility] LABORATORYCLIA [id number] [address] [place] Hematocrit (Bld) [Volume fraction] 30.8 % Low 39.0-51.0 [facility] Comment on above: Order Comment: Speci men Type: BLOOD SPECIMENOrdering Facility: [facility] Address: [address] [place] [address] Performed By: #### 5 7021-8 ####[facility] LABORATORYCLIA [id number] [address] Hemoglobin (Bld) [Mass/Vol] 9.4 g/dL Low 13.0-17.0 [facility] Comment on above: Order Comment: Speci men Type: BLOOD SPECIMENOrdering Facility: [facility] Address: [address] [place] [address] Performed By: #### 5 7021-8 ####[facility] LABORATORYCLIA [id number] [address] IMMATURE GRAN % 0.5 % Normal [facility] Comment on above: Order Comment: Speci men Type: BLOOD SPECIMENOrdering Facility: [facility] Address: [address] [place] [address] Performed By: #### 5 7021-8 ####[facility] LABORATORYCLIA [id number] [address] IMMATURE GRAN ABS 0.06 k/uL Normal <0.10 [facility] Comment on above: Order Comment: Speci men Type: BLOOD SPECIMENOrdering Facility: [facility] Address: [address] [place] [address] Performed By: #### 5 7021-8 ####[facility] LABORATORYCLIA [id number] [address] Lymphocytes (Bld) [#/Vol] 1.68 10*3/uL Normal 1.00-4.00 [facility] Comment on above: Order Comment: Speci men Type: BLOOD SPECIMENOrdering Facility: [facility] Address: [address] [place] [address] Performed By: #### 5 7021-8 ####[facility] LABORATORYCLIA [id number] [address] Lymphocytes/100 WBC (Bld) 15.3 % Normal [facility] Comment on above: Order Comment: Speci men Type: BLOOD SPECIMENOrdering Facility: [facility] Address: [address] [place] [address] Performed By: #### 5 7021-8 ####[facility] LABORATORYCLIA [id number] [address] [place] MCH (RBC) [Entitic mass] 28.0 pg Normal 26.0-34.0 [facility] Comment on above: Order Comment: Speci men Type: BLOOD SPECIMENOrdering Facility: [facility] Address: [address] [place] [address] Performed By: #### 5 7021-8 ####[facility] LABORATORYCLIA [id number] [address] MCHC (RBC) [Mass/Vol] 30.5 g/dL Normal 30.5-36.0 [facility] Comment on above: Order Comment: Speci men Type: BLOOD SPECIMENOrdering Facility: [facility] Address: [address] [place] [address] Performed By: #### 5 7021-8 ####[facility] LABORATORYCLIA [id number] [address] MCV (RBC) [Entitic vol] 91.7 fL Normal 80.0-100.0 [facility] Comment on above: Order Comment: Speci men Type: BLOOD SPECIMENOrdering Facility: [facility] Address: [address] [place] [address] Performed By: #### 5 7021-8 ####[facility] LABORATORYCLIA [id number] [address] Monocytes (Bld) [#/Vol] 0.53 10*3/uL Normal <0.87 [facility] Comment on above: Order Comment: Speci men Type: BLOOD SPECIMENOrdering Facility: [facility] Address: [address] [place] [address] Performed By: #### 5 7021-8 ####[facility] LABORATORYCLIA [id number] [address] Monocytes/100 WBC (Bld) 4.8 % Normal [facility] Comment on above: Order Comment: Speci men Type: BLOOD SPECIMENOrdering Facility: [facility] Address: [address] [place] [address] Performed By: #### 5 7021-8 ####[facility] LABORATORYCLIA [id number] [place] [address] [place] Neutrophils (Bld) [#/Vol] 8.39 10*3/uL High 1.45-7.50 [facility] Comment on above: Order Comment: Speci men Type: BLOOD SPECIMENOrdering Facility: [facility] Address: [address] [place] [address] Performed By: #### 5 7021-8 ####[facility] LABORATORYCLIA [id number] [address] [place] Neutrophils/100 WBC (Bld) 76.3 % Normal [facility] Comment on above: Order Comment: Speci men Type: BLOOD SPECIMENOrdering Facility: [facility] Address: [address] [place] [address] Performed By: #### 5 7021-8 ####[facility] LABORATORYCLIA [id number] [address] [place] Nucleated RBC (Bld) [#/Vol] 10*3/uL Normal <0.01 [facility] Comment on above: Order Comment: Speci men Type: BLOOD SPECIMENOrdering Facility: [facility] Address: [address] [place] [address] Performed By: #### 5 7021-8 ####[facility] LABORATORYCLIA [id number] [address] [place] Nucleated RBC/100 WBC (Bld) [Ratio] 0.0 /100 WBC Normal [facility] Comment on above: Order Comment: Speci men Type: BLOOD SPECIMENOrdering Facility: [facility] Address: [address] [place] [address] Performed By: #### 5 7021-8 ####[facility] LABORATORYCLIA [id number] [address] [place] Platelet mean volume (Bld) [Entitic vol] 10.9 fL Normal 9.0-12.7 [facility] Comment on above: Order Comment: Speci men Type: BLOOD SPECIMENOrdering Facility: [facility] Address: [address] [place] [address] Performed By: #### 5 7021-8 ####[facility] LABORATORYCLIA [id number] [address] Platelets (Bld) [#/Vol] 287 10*3/uL Normal 150-400 [facility] Comment on above: Order Comment: Speci men Type: BLOOD SPECIMENOrdering Facility: [facility] Address: [address] [place] [address] Performed By: #### 5 7021-8 ####[facility] LABORATORYCLIA [id number] [address] [facility] RBC (Bld) [#/Vol] 3.36 10*6/uL Low 4.20-6.00 [facility] Comment on above: Order Comment: Speci men Type: BLOOD SPECIMENOrdering Facility: [facility] Address: [address] [place] [address] Performed By: #### 5 7021-8 ####[facility] LABORATORYCLIA [id number] [address] WBC (Bld) [#/Vol] 11.00 10*3/uL Normal 3.70-11.00 [facility] Comment on above: Order Comment: Speci men Type: BLOOD SPECIMENOrdering Facility: [facility] Address: [address] [place] [address] Performed By: #### 5 7021-8 ####[facility] LABORATORYCLIA [id number] [address] CSF MANUAL DIFFon 07-30-2021 DIF TTL, CSF 100 cells counted Normal [facility] Comment on above: Order Comment: Speci men Type: CEREBROSPINAL FLUIDOrdering Facility: [facility] Address: [address] [place] [address] Performed By: #### L [id number], TFI8032, 10444-1 ####[facility] LABORATORYCLIA [id number] [address] EOSIN%, CSF 0 % Normal [facility] Comment on above: Order Comment: Speci men Type: CEREBROSPINAL FLUIDOrdering Facility: [facility] Address: [address] [place] [address] Performed By: #### L [id number], IWH6029, 57490-3 ####[facility]ORATORYCLIA [id number] [place] [address] [place] LYMPH%, CSF 75 % Normal 50-90 [facility] Comment on above: Order Comment: Speci men Type: CEREBROSPINAL FLUIDOrdering Facility: [facility] Address: [address] [place] [address] Performed By: #### L [id number], GZV7934, 70661-8 ####[facility]ORATORYCLIA [id number] [place] [address] [place] MACRO%, CSF 9 % High <1 [facility] Comment on above: Order Comment: Speci men Type: CEREBROSPINAL FLUIDOrdering Facility: [facility] Address: [address] [place] [address] Performed By: #### L [id number], AVH8192, 97050-7 ####[facility]ORATORYCLIA [id number] [place] [address] [place] MONO%, CSF 10 % Normal 10-50 [facility] Comment on above: Order Comment: Speci men Type: CEREBROSPINAL FLUIDOrdering Facility: [facility] Address: [address] [place] [address] Performed By: #### L [id number], JXJ8967, 13832-4 ####[facility]ORATORYCLIA [id number] [address] [place] OTHER CL%, CSF 4 % Normal [facility] Comment on above: Order Comment: Speci men Type: CEREBROSPINAL FLUIDOrdering Facility: [facility] Address: [address] [place] [address] Result Comment: Path review to follow. Performed By: #### L YD3351, QPS1240, 94199-0 ####[facility]ORATORYCLIA [id number] [address] [place] REAC LYMPH %, CSF 2 % Normal [facility] Comment on above: Order Comment: Speci men Type: CEREBROSPINAL FLUIDOrdering Facility: [facility] Address: [address] [place] [address] Performed By: #### L [id number], YWR5815, 71037-2 ####[facility]ORATORYCLIA [id number] [address] [place] CSF PATHOLOGIST INTERP (LAB REFLEX ORDER-NO BILL)on 07-30-2021 CSF STAFF REVIEW Negative Normal [facility] Comment on above: Order Comment: Speci men Type: CEREBROSPINAL FLUIDOrdering Facility: [facility] Address: [address] [place] [address] Performed By: #### L ZB1792, ORA2350, 35972-1 ####[facility]ORATORYCLIA [id number] [address] Pathologist name Reviewed by Eloise rebolledo MD Normal [facility] Comment on above: Order Comment: Speci men Type: CEREBROSPINAL FLUIDOrdering Facility: [facility] Address: [address] [place] [address] Performed By: #### L [id number], HUK0902, 08682-6 ####[facility]ORATORYCLIA [id number] [address] [place] CT BRAIN WO IVCONon 07-31-[address] BRAIN WO IVCON Normal [facility] Cell count panel (CSF)on Clarity (CSF) Clear Normal Clear [facility] Comment on above: Order Comment: Speci men Type: CEREBROSPINAL FLUIDOrdering Facility: [facility] Address: [address] [place] [address] Performed By: #### L [id number], DHG7917, 45286-1 ####[facility]ORATORYCLIA [id number] [address] [place] Clarity (Unsp spec) Clear Normal Clear [facility] Comment on above: Order Comment: Speci men Type: CEREBROSPINAL FLUIDOrdering Facility: [facility] Address: [address] [place] [address] Performed By: #### L [id number], QVJ0791, 94488-4 ####[facility] LABORATORYCLIA [id number] [address] Color (CSF) Colorless Normal Colorless [facility] Comment on above: Order Comment: Speci men Type: CEREBROSPINAL FLUIDOrdering Facility: [facility] Address: [address] [place] [address] Performed By: #### L [id number], DFQ3234, 88450-7 ####[facility] LABORATORYCLIA [id number] [address] Color (Spun CSF) Colorless Normal Colorless [facility] Comment on above: Order Comment: Speci men Type: CEREBROSPINAL FLUIDOrdering Facility: [facility] Address: [address] [place] [address] Performed By: #### L EE0831, RHS9350, 45543-3 ####[facility] LABORATORYCLIA [id number] [address] CSF TUBE NUMBER [employer] Normal [facility] Comment on above: Order Comment: Speci men Type: CEREBROSPINAL FLUIDOrdering Facility: [facility] Address: [address] [place] [address] Performed By: #### L UU1525, EYQ2085, 69676-7 ####[facility] LABORATORYCLIA [id number] [address] RBC Manual cnt (CSF) [#/Vol] 9 cells/uL High 0-5 [facility] Comment on above: Order Comment: Speci men Type: CEREBROSPINAL FLUIDOrdering Facility: [facility] Address: [address] [place] [address] Performed By: #### L ZI0102, PLL9755, 11569-3 ####[facility] LABORATORYCLIA [id number] [address] WBC Manual cnt (CSF) [#/Vol] 8 cells/uL High 0-5 [facility] Comment on above: Order Comment: Speci men Type: CEREBROSPINAL FLUIDOrdering Facility: [facility] Address: [address] [place] [address] Performed By: #### L UP6709, TCU9439, 63751-8 ####[facility] LABORATORYCLIA [id number] [address] Glucose CSF-ncon Glucose (CSF) [Mass/Vol] 65 mg/dL Normal 40-70 [facility] Comment on above: Order Comment: Speci men Type: CEREBROSPINAL FLUIDOrdering Facility: [facility] Address: [address] [place] [address] Result Comment: Lumb ar CSF glucose values of healthy patients are approximately 60% of the plasma values and must always be compared with a concurrently measured plasma value for adequate clinical interpretation.References: 1. Glucose HK (GLUC3) [package insert V 12.0 [place]]. [facility], [place], [place]. September 2015. 2. Michelle Moore, Loki, H. (2015). Chapter 7: Glucose and Lactate. Marianela Alcocer al.(eds.), Cerebrospinal Fluid in Clinical Neurology. [place]: [employer]. Performed By: #### 2 342-4, 2880-3 ####[facility] LABORATORYCLIA [id number] [address] [facility] Magnesium SerPl-[facility] 07-30 Magnesium [Mass/Vol] 2.5 mg/dL High 1.7-2.3 [place] [facility] Comment on [facility]: Order Comment: Speci men Type: BLOOD SPECIMENOrdering Facility: [facility] Address: [address] [place] [address] Performed By: #### 2 777-1, 22963-6, 43652-3 ####[facility] LABORATORYCLIA [id number] [address] [place] NURSING PROGon 07-30-2021 NURSING PROG Normal [facility] Phosphate SerPl-mCncon 07-30 Phosphate [Mass/Vol] 2.4 mg/dL Low 2.7-4.8 [facility] Comment on above: Order Comment: Speci men Type: BLOOD SPECIMENOrdering Facility: [facility] Address: [address] [place] [address] Performed By: #### 2 777-1, 51288-2, 95103-1 ####[facility] LABORATORYCLIA [id number] [place] [address] [place] Prot CSF-mCncon 07-30-2021 Protein (CSF) [Mass/Vol] 50 mg/dL High 15-45 [facility] Comment on above: Order Comment: Speci men Type: CEREBROSPINAL FLUIDOrdering Facility: [facility] Address: [address] [place] [address] Performed By: #### 2 342-4, 2880-3 ####[facility] [id number] [place] [address] [place] aPTT PPPon 07-30-2021 aPTT Coag (PPP) [Time] 64.1 s High 23.0-32.4 [facility] Comment on above: Order Comment: Speci men Type: BLOOD SPECIMENOrdering Facility: [facility] Address: [address] [place] [address] Performed By: #### 1 4979-9 ####[facility] LABORATORYCLIA [id number] [address] [place] Bacteria CSF Culton 07-30-19 22 Bacteria identified Cx Nom (CSF) CULTURE, CSF: No growth 14 days GRAM STAIN: No cells or organisms seen Gram stain performed on cytospun specimen. Gram stain confirmed by microbiology Normal [facility] Comment on above: Performed By: #### 6 06-4 ####[facility]ORATORYCLIA [id number] [place] [address] [place] CASE MANAGEMon 07-29-2021 CASE MANAGEM Normal [facility] CBC W Auto Differential pane l (Bld)on 07-29-2021 Basophils (Bld) [#/Vol] 0.03 10*3/uL Normal <0.11 [facility] Comment on above: Order Comment: Speci men Type: BLOOD SPECIMENOrdering Facility: [facility] Address: [address] [address] Performed By: #### 5 7021-8 ####[facility]ORATORYCLIA [id number] [place] [address] [place] Basophils/100 WBC (Bld) 0.3 % Normal [facility] Comment on above: Order Comment: Speci men Type: BLOOD SPECIMENOrdering Facility: [facility] Address: [address] [place] [address] Performed By: #### 5 7021-8 ####[facility]ORATORYCLIA [id number] [address] [place] [facility] Differential cell count method Nom (Bld) Auto Normal [facility] Comment on above: Order Comment: Speci men Type: BLOOD SPECIMENOrdering Facility: [facility] Address: [address] [place] [address] Performed By: #### 5 7021-8 ####[facility]ORATORYCLIA [id number] [place] [address] [place] Eosinophils (Bld) [#/Vol] 0.40 10*3/uL Normal <0.46 [facility] Comment on above: Order Comment: Speci men Type: BLOOD SPECIMENOrdering Facility: [facility] Address: [address] [address] Performed By: #### 5 7021-8 ####[facility]ATORYCLIA [id number] [address] [place] Eosinophils/100 WBC (Bld) 3.9 % Normal [facility] Comment on above: Order Comment: Speci men Type: BLOOD SPECIMENOrdering Facility: [facility] Address: [address] [place] [address] Performed By: #### 5 7021-8 ####[facility]ORATORYCLIA [id number] [address] Erythrocyte distribution width (RBC) [Ratio] 17.1 % High 11.5-15.0 [facility] Comment on above: Order Comment: Speci men Type: BLOOD SPECIMENOrdering Facility: [facility] Address: [address] [place] [address] Performed By: #### 5 7021-8 ####[facility] LABORATORYCLIA [id number] [address] OF [facility] Hematocrit (Bld) [Volume fraction] 32.0 % Low 39.0-51.0 [facility] Comment on above: Order Comment: Speci men Type: BLOOD SPECIMENOrdering Facility: [facility] Address: [address] [place] [address] Performed By: #### 5 7021-8 ####[facility]ORATORYCLIA [id number] [address] Hemoglobin (Bld) [Mass/Vol] 9.7 g/dL Low 13.0-17.0 [facility] Comment on above: Order Comment: Speci men Type: BLOOD SPECIMENOrdering Facility: [facility] Address: [address] [place] [address] Performed By: #### 5 7021-8 ####[facility]ORATORYCLIA [id number] [address] IMMATURE GRAN % 0.6 % Normal [facility] Comment on above: Order Comment: Speci men Type: BLOOD SPECIMENOrdering Facility: [facility] Address: [address] [place] [address] Performed By: #### 5 7021-8 ####[facility]ORATORYCLIA [id number] [address] IMMATURE GRAN ABS 0.06 k/uL Normal <0.10 [facility] Comment on above: Order Comment: Speci men Type: BLOOD SPECIMENOrdering Facility: [facility] Address: [address] [address] Performed By: #### 5 7021-8 ####[facility]ORATORYCLIA [id number] [address] [place] Lymphocytes (Bld) [#/Vol] 1.96 10*3/uL Normal 1.00-4.00 [facility] Comment on above: Order Comment: Speci men Type: BLOOD SPECIMENOrdering Facility: [facility] Address: [address] [place] [address] Performed By: #### 5 7021-8 ####[facility]ORATORYCLIA [id number] [address] Lymphocytes/100 WBC (Bld) 19.0 % Normal [facility] Comment on above: Order Comment: Speci men Type: BLOOD SPECIMENOrdering Facility: [facility] Address: [address] [place] [address] Performed By: #### 5 7021-8 ####[facility]ORATORYCLIA [id number] [address] [place] [facility] MCH (RBC) [Entitic mass] 28.0 pg Normal 26.0-34.0 [facility] Comment on above: Order Comment: Speci men Type: BLOOD SPECIMENOrdering Facility: [facility] Address: [address] [place] [address] Performed By: #### 5 7021-8 ####[facility]ORATORYCLIA [id number] [address] [place] MCHC (RBC) [Mass/Vol] 30.3 g/dL Low 30.5-36.0 [facility] Comment on above: Order Comment: Speci men Type: BLOOD SPECIMENOrdering Facility: [facility] Address: [address] [place] [address] Performed By: #### 5 7021-8 ####[facility]ORATORYCLIA [id number] [address] [place] MCV (RBC) [Entitic vol] 92.5 fL Normal 80.0-100.0 [facility] Comment on above: Order Comment: Speci men Type: BLOOD SPECIMENOrdering Facility: [facility] Address: [address] [place] [address] Performed By: #### 5 7021-8 ####[facility] LABORATORYCLIA [id number] [place] [address] [place] Monocytes (Bld) [#/Vol] 0.53 10*3/uL Normal <0.87 [facility] Comment on above: Order Comment: Speci men Type: BLOOD SPECIMENOrdering Facility: [facility] Address: [address] [place] [address] Performed By: #### 5 7021-8 ####[facility]ORATORYCLIA [id number] [place] [address] [place] Monocytes/100 WBC (Bld) 5.2 % Normal [facility] Comment on above: Order Comment: Speci men Type: BLOOD SPECIMENOrdering Facility: [facility] Address: [address] [place] [address] Performed By: #### 5 7021-8 ####[facility]ORATORYCLIA [id number] [place] [address] [place] Neutrophils (Bld) [#/Vol] 7.31 10*3/uL Normal 1.45-7.50 [facility] Comment on above: Order Comment: Speci men Type: BLOOD SPECIMENOrdering Facility: [facility] Address: [address] [place] [address] Performed By: #### 5 7021-8 ####[facility] LABORATORYCLIA [id number] [place] [address] [place] Neutrophils/100 WBC (Bld) 71.0 % Normal [facility] Comment on above: Order Comment: Speci men Type: BLOOD SPECIMENOrdering Facility: [facility] Address: [address] [place] [address] Performed By: #### 5 7021-8 ####[facility]ORATORYCLIA [id number] [address] [place] Nucleated RBC (Bld) [#/Vol] 10*3/uL Normal <0.01 [facility] Comment on above: Order Comment: Speci men Type: BLOOD SPECIMENOrdering Facility: [facility] Address: [address] [place] [address] Performed By: #### 5 7021-8 ####[facility]ORATORYCLIA [id number] [address] [place] Nucleated RBC/100 WBC (Bld) [Ratio] 0.0 /100 WBC Normal [facility] Comment on above: Order Comment: Speci men Type: BLOOD SPECIMENOrdering Facility: [facility] Address: [address] [place] [address] Performed By: #### 5 7021-8 ####[facility]ORATORYCLIA [id number] [address] [place] Platelet mean volume (Bld) [Entitic vol] 11.2 fL Normal 9.0-12.7 [facility] Comment on above: Order Comment: Speci men Type: BLOOD SPECIMENOrdering Facility: [facility] Address: [address] [place] [address] Performed By: #### 5 7021-8 ####[facility]ORATORYCLIA [id number] [address] [place] Platelets (Bld) [#/Vol] 276 10*3/uL Normal 150-400 [facility] Comment on above: Order Comment: Speci men Type: BLOOD SPECIMENOrdering Facility: [facility] Address: [address] [place] [address] Performed By: #### 5 7021-8 ####[facility]ATORYCLIA [id number] [address] [place] RBC (Bld) [#/Vol] 3.46 10*6/uL Low 4.20-6.00 [facility] Comment on above: Order Comment: Speci men Type: BLOOD SPECIMENOrdering Facility: [facility] Address: [facility] [place] [address] Performed By: #### 5 7021-8 ####[facility]ORATORYCLIA [id number] [place] [address] [place] [facility] WBC (Bld) [#/Vol] 10.29 10*3/uL Normal 3.70-11.00 [facility] Comment on above: Order Comment: Speci men Type: BLOOD SPECIMENOrdering Facility: [facility] Address: [address] [place] [address] Performed By: #### 5 7021-8 ####[facility]ORATORYCLIA [id number] [address] OF [facility] NURSING PROGon 07-29-2021 NURSING PROG Normal [facility] THERAPY NTon 07-29-2021 THERAPY NT Normal [facility] aPTT PPPon 07-29-2021 aPTT Coag (PPP) [Time] 59.2 s High 23.0-32.4 [facility] Comment on above: Order Comment: Speci men Type: BLOOD SPECIMENOrdering Facility: [facility] Address: [address] [place] [address] Performed By: #### 1 4979-9 ####[facility]ORATORYCLIA [id number] [address] [place] ALLIED HEALTHon 07-28-2021 ALLIED HEALTH Normal [facility] Basic metabolic 2000 panelon 07-28-2021 Anion gap [Moles/Vol] 7 mmol/L Low 9-18 [facility] Comment on above: Order Comment: Speci men Type: BLOOD SPECIMENOrdering Facility: [facility] Address: [address] [place] [address] Performed By: #### 1 4338-8, 48196-8, 2777-1, 28671-0 ####[facility]ORATORYCLIA [id number] [address] [place] Calcium [Mass/Vol] 9.0 mg/dL Normal 8.5-10.2 [facility] Comment on above: Order Comment: Speci men Type: BLOOD SPECIMENOrdering Facility: [facility] Address: [address] [place] [address] Performed By: #### 1 4338-8, 37181-9, 277-, 08575-1 ####[facility]ATORYCLIA [id number] [place] [address] [place] Chloride [Moles/Vol] 94 mmol/L Low 97-105 [facility] Comment on above: Order Comment: Speci men Type: BLOOD SPECIMENOrdering Facility: [facility] Address: [address] [place] [address] Performed By: #### 1 4338-8, 91735-3, 27711-04, 64821-3 ####[facility]ITALCLIA [id number] [place] [address] [place] CO2 [Moles/Vol] 31 mmol/L High 22-30 [facility] Comment on above: Order Comment: Speci men Type: BLOOD SPECIMENOrdering Facility: [facility] Address: [address] [place] [address] Performed By: #### 1 4338-8, , 2776-05, 20908-9 ####[facility]ORATORYCLIA [id number] [address] [place] Creatinine [Mass/Vol] 0.75 mg/dL Normal 0.73-1.22 [facility] Comment on above: Order Comment: Speci men Type: BLOOD SPECIMENOrdering Facility: [facility] Address: [address] [place] [address] Performed By: #### 1 4338-8, 87303-5, 2776-05, 37766-4 ####[facility]ORATORYCLIA [id number] [address] [place] [facility] ESTIMATED GLOMERULAR FILTRATION RATE 98 mL/min/1.73m??? Normal >=60 [facility] Comment on above: Order Comment: Speci men Type: BLOOD SPECIMENOrdering Facility: [facility] Address: [address] [place] [address] Result Comment: Luzmaria mated Glomerular Filtration Rate [...] actual GFR. Performed By: #### 1 4338-8, 01406-2, 2777-1, 52112-4 ####[facility]ITALCLIA [id number] [address] [id number] [place] Glucose [Mass/Vol] 122 mg/dL High 74-99 [facility] Comment on above: Order Comment: Shira feldman Type: BLOOD SPECIMENOrdering Facility: [facility] Address: [address] [place], [place] [address] Result Comment: The [place] [employer] (ADA) provides guidance for cutoff [...] Standards of Medical Care in Diabetes 2016, [place] [employer]. Diabetes Care. 2016.39(Suppl 1). Performed By: #### 1 4338-8, 52901-8, 2777-1, 45994-0 ####[facility]ORATORYCLIA [id number] [place] [id number] [place] Potassium [Moles/Vol] 4.0 mmol/L Normal 3.7-5.1 [facility] Comment on above: Order Comment: Shira feldman Type: BLOOD SPECIMENOrdering Facility: [facility] Address: [address] [place] [address] Performed By: #### 1 4338-8, 88479-8, 2777-1, 91464-4 ####[facility]ORATORYCLIA [id number] [address] STATES [facility] Sodium [Moles/Vol] 132 mmol/L Low 136-144 [facility] Comment on above: Order Comment: Speci men Type: BLOOD SPECIMENOrdering Facility: [facility] Address: [address] [place] [address] Performed By: #### 1 4338-8, 61771-1, 2777-1, 59837-9 ####[facility]ATORYCLIA [id number] [address] [place] Urea nitrogen [Mass/Vol] 34 mg/dL High 01-28 [facility] Comment on above: Order Comment: Speci men Type: BLOOD SPECIMENOrdering Facility: [facility] Address: [address] [place] [address] Performed By: #### 1 4338-8, 58743-8, 2777-1, 24150-4 ####[facility]ATORYCLIA [id number] [address] CBC W Auto Differential pane l (Bld)on 07-28-2021 Basophils (Bld) [#/Vol] 0.04 10*3/uL Normal <0.11 [facility] Comment on above: Order Comment: Speci men Type: BLOOD SPECIMENOrdering Facility: [facility] Address: [address] [place] [address] Performed By: #### 5 7021-8 ####[facility]ORATORYCLIA [id number] [address] STATES [facility] Basophils/100 WBC (Bld) 0.5 % Normal [facility] Comment on above: Order Comment: Speci men Type: BLOOD SPECIMENOrdering Facility: [facility] Address: [address] [place] [address] Performed By: #### 5 7021-8 ####[facility]ATORYCLIA [id number] [address] Differential cell count method Nom (Bld) Auto Normal [facility] Comment on above: Order Comment: Speci men Type: BLOOD SPECIMENOrdering Facility: [facility] Address: [address] [place] [address] Performed By: #### 5 7021-8 ####[facility]ATORYCLIA [id number] [address] [place] Eosinophils (Bld) [#/Vol] 0.30 10*3/uL Normal <0.46 [facility] Comment on above: Order Comment: Speci men Type: BLOOD SPECIMENOrdering Facility: [facility] Address: [address] [place] [address] Performed By: #### 5 7021-8 ####[facility]ORATORYCLIA [id number] [address] Eosinophils/100 WBC (Bld) 3.4 % Normal [facility] Comment on above: Order Comment: Speci men Type: BLOOD SPECIMENOrdering Facility: [facility] Address: [address] [place] [address] Performed By: #### 5 7021-8 ####[facility]ORATORYCLIA [id number] [address] Erythrocyte distribution width (RBC) [Ratio] 16.9 % High 11.5-15.0 [facility] Comment on above: Order Comment: Speci men Type: BLOOD SPECIMENOrdering Facility: [facility] Address: [address] [place] [address] Performed By: #### 5 7021-8 ####[facility]ORATORYCLIA [id number] [address] Hematocrit (Bld) [Volume fraction] 30.3 % Low 39.0-51.0 [facility] Comment on above: Order Comment: Speci men Type: BLOOD SPECIMENOrdering Facility: [facility] Address: [address] [place] [address] Performed By: #### 5 7021-8 ####[facility]ORATORYCLIA [id number] [address] [place] [facility] Hemoglobin (Bld) [Mass/Vol] 9.2 g/dL Low 13.0-17.0 [facility] Comment on above: Order Comment: Speci men Type: BLOOD SPECIMENOrdering Facility: [facility] Address: [address] [place] [address] Performed By: #### 5 7021-8 ####[facility]ORATORYCLIA [id number] [address] IMMATURE GRAN % 0.6 % Normal [facility] Comment on above: Order Comment: Speci men Type: BLOOD SPECIMENOrdering Facility: [facility] Address: [address] [place] [address] Performed By: #### 5 7021-8 ####[facility]ORATORYCLIA [id number] [address] IMMATURE GRAN ABS 0.05 k/uL Normal <0.10 [facility] Comment on above: Order Comment: Speci men Type: BLOOD SPECIMENOrdering Facility: [facility] Address: [address] [place] [address] Performed By: #### 5 7021-8 ####[facility]ORATORYCLIA [id number] [address] [place] Lymphocytes (Bld) [#/Vol] 1.68 10*3/uL Normal 1.00-4.00 [facility] Comment on above: Order Comment: Speci men Type: BLOOD SPECIMENOrdering Facility: [facility] Address: [address] [place] [address] Performed By: #### 5 7021-8 ####[facility]ORATORYCLIA [id number] [address] Lymphocytes/100 WBC (Bld) 19.2 % Normal [facility] Comment on above: Order Comment: Speci men Type: BLOOD SPECIMENOrdering Facility: [facility] Address: [address] [place] [address] Performed By: #### 5 7021-8 ####[facility]ORATORYCLIA [id number] [address] MCH (RBC) [Entitic mass] 28.4 pg Normal 26.0-34.0 [facility] Comment on above: Order Comment: Speci men Type: BLOOD SPECIMENOrdering Facility: [facility] Address: [address] [place] [address] Performed By: #### 5 7021-8 ####[facility]ORATORYCLIA [id number] [address] MCHC (RBC) [Mass/Vol] 30.4 g/dL Low 30.5-36.0 [facility] Comment on above: Order Comment: Speci men Type: BLOOD SPECIMENOrdering Facility: [facility] Address: [address] [place] [address] Performed By: #### 5 7021-8 ####[facility]ORATORYCLIA [id number] [address] MCV (RBC) [Entitic vol] 93.5 fL Normal 80.0-100.0 [facility] Comment on above: Order Comment: Speci men Type: BLOOD SPECIMENOrdering Facility: [facility] Address: [address] [place] [address] Performed By: #### 5 7021-8 ####[facility]ORATORYCLIA [id number] [address] Monocytes (Bld) [#/Vol] 0.58 10*3/uL Normal <0.87 [facility] Comment on above: Order Comment: Speci men Type: BLOOD SPECIMENOrdering Facility: [facility] Address: [address] [place] [address] Performed By: #### 5 7021-8 ####[facility]ORATORYCLIA [id number] [address] Monocytes/100 WBC (Bld) 6.6 % Normal [facility] Comment on above: Order Comment: Speci men Type: BLOOD SPECIMENOrdering Facility: [facility] Address: [address] [place] [address] Performed By: #### 5 7021-8 ####[facility] LABORATORYCLIA [id number] [place] [address] [place] Neutrophils (Bld) [#/Vol] 6.11 10*3/uL Normal 1.45-7.50 [facility] Comment on above: Order Comment: Speci men Type: BLOOD SPECIMENOrdering Facility: [facility] Address: [address] [place] [address] Performed By: #### 5 7021-8 ####[facility]ORATORYCLIA [id number] [address] [place] Neutrophils/100 WBC (Bld) 69.7 % Normal [facility] Comment on above: Order Comment: Speci men Type: BLOOD SPECIMENOrdering Facility: [facility] Address: [address] [place] [address] Performed By: #### 5 7021-8 ####[facility]ORATORYCLIA [id number] [address] [place] Nucleated RBC (Bld) [#/Vol] 10*3/uL Normal <0.01 [facility] Comment on above: Order Comment: Speci men Type: BLOOD SPECIMENOrdering Facility: [facility] Address: [address] [place] [address] Performed By: #### 5 7021-8 ####[facility] LABORATORYCLIA [id number] [address] [place] Nucleated RBC/100 WBC (Bld) [Ratio] 0.0 /100 WBC Normal [facility] Comment on above: Order Comment: Speci men Type: BLOOD SPECIMENOrdering Facility: [facility] Address: [address] [place] [address] Performed By: #### 5 7021-8 ####[facility] LABORATORYCLIA [id number] [address] [place] Platelet mean volume (Bld) [Entitic vol] 11.3 fL Normal 9.0-12.7 [facility] Comment on above: Order Comment: Speci men Type: BLOOD SPECIMENOrdering Facility: [facility] Address: [address] [place] [address] Performed By: #### 5 7021-8 ####[facility] LABORATORYCLIA [id number] [place] [address] [place] Platelets (Bld) [#/Vol] 238 10*3/uL Normal 150-400 [facility] Comment on above: Order Comment: Speci men Type: BLOOD SPECIMENOrdering Facility: [facility] Address: [address] [place] [address] Performed By: #### 5 7021-8 ####[facility] LABORATORYCLIA [id number] [place] [address] [place] RBC (Bld) [#/Vol] 3.24 10*6/uL Low 4.20-6.00 [facility] Comment on above: Order Comment: Speci men Type: BLOOD SPECIMENOrdering Facility: [facility] Address: [address] [place] [address] Performed By: #### 5 7021-8 ####[facility] LABORATORYCLIA [id number] [place] [address] [place] WBC (Bld) [#/Vol] 8.76 10*3/uL Normal 3.70-11.00 [facility] Comment on above: Order Comment: Speci men Type: BLOOD SPECIMENOrdering Facility: [facility] Address: [address] [place] [address] Performed By: #### 5 7021-8 ####[facility] LABORATORYCLIA [id number] [address] [place] MRI BRAIN WO/W IVCONon 07-28 MRI BRAIN WO/W IVCON Normal [facility] Magnesium SerPl-mCncon 07-28 Magnesium [Mass/Vol] 2.5 mg/dL High 1.7-2.3 [facility] Comment on above: Order Comment: Speci men Type: BLOOD SPECIMENOrdering Facility: [facility] Address: [address] [place] [address] Performed By: #### 1 4338-8, 43672-2, 2777-1, 50825-9 ####[facility] LABORATORYCLIA [id number] [address] STATES OF [facility] NURSING PROGon 07-28-2021 NURSING PROG Normal [facility] NURSING PROG Normal [facility] Phosphate SerPl-mCncon 07-28 Phosphate [Mass/Vol] 2.8 mg/dL Normal 2.7-4.8 [facility] Comment on above: Order Comment: Speci men Type: BLOOD SPECIMENOrdering Facility: [facility] Address: [address] [place] [address] Performed By: #### 1 4338-8, 56355-9, 2777-1, 65101-8 ####[facility]ORATORYCLIA [id number] [address] [place] Prealbumin [Mass/Vol]on 07-06 Prealbumin Nephelometry [Mass/Vol] 25 mg/dL Normal 17-36 [facility] Comment on above: Order Comment: Speci men Type: BLOOD SPECIMENOrdering Facility: [facility] Address: [address] [place] [address] Performed By: #### 1 4338-8, 16500-9, 2777-1, 50665-3 ####[facility]ORATORYCLIA [id number] [address] [place] aPTT PPPon 07-28-2021 aPTT Coag (PPP) [Time] 53.0 s High 23.0-32.4 [facility] Comment on above: Order Comment: Speci men Type: BLOOD SPECIMENOrdering Facility: [facility] Address: [address] [address] Performed By: #### 1 4979-9 ####[facility]ORATORYCLIA [id number] [address] [place] aPTT Coag (PPP) [Time] 57.2 s High 23.0-32.4 [facility] Comment on above: Order Comment: Speci men Type: BLOOD SPECIMENOrdering Facility: [facility] Address: [address] [place] [address] Performed By: #### 1 4979-9 ####[facility]ORATORYCLIA [id number] [address] [place] Bacteria CSF Culton 07-28-19 22 Bacteria identified Cx Nom (CSF) CULTURE, CSF: No growth 14 days GRAM STAIN: No organisms seen Rare Polymorphonuclear leukocytes Rare Red Blood Cells Gram stain performed on cytospun specimen. Normal [facility] Comment on above: Performed By: #### 6 06-4 ####[facility]ORATORYCLIA [id number] [address] [place] Bacteria Spec Resp Culton Bacteria identified Respiratory culture Nom (Unsp spec) CULTURE, RESPIRATORY: Rare Normal respiratory chris present GRAM STAIN: No organisms seen Rare Polymorphonuclear leukocytes Rare Epithelial cells Normal [facility] Comment on above: Performed By: #### 3 2355-0 ####[facility]ORATORYCLIA [id number] [address] [place] CASE MANAGEMon 07-27-2021 CASE MANAGEM Normal [facility] CBC W Auto Differential pane l (Bld)on 07-27-2021 Basophils (Bld) [#/Vol] 0.04 10*3/uL Normal <0.11 [facility] Comment on above: Order Comment: Speci men Type: BLOOD SPECIMENOrdering Facility: [facility] Address: [address] [id number] Performed By: #### 5 7021-8 ####[facility]ORATORYCLIA [id number] [address] [place] Basophils/100 WBC (Bld) 0.4 % Normal [facility] Comment on above: Order Comment: Speci men Type: BLOOD SPECIMENOrdering Facility: [facility] Address: [address] [place] [address] Performed By: #### 5 7021-8 ####[facility]ORATORYCLIA [id number] [address] Differential cell count method Nom (Bld) Auto Normal [facility] Comment on above: Order Comment: Speci men Type: BLOOD SPECIMENOrdering Facility: [facility] Address: [address] [place] [address] Performed By: #### 5 7021-8 ####[facility]ORATORYCLIA [id number] [address] [place] Eosinophils (Bld) [#/Vol] 0.50 10*3/uL High <0.46 [facility] Comment on above: Order Comment: Speci men Type: BLOOD SPECIMENOrdering Facility: [facility] Address: [address] [place] [address] Performed By: #### 5 7021-8 ####[facility]ORATORYCLIA [id number] [address] Eosinophils/100 WBC (Bld) 5.2 % Normal [facility] Comment on above: Order Comment: Speci men Type: BLOOD SPECIMENOrdering Facility: [facility] Address: [address] [place] [address] Performed By: #### 5 7021-8 ####[facility]ORATORYCLIA [id number] [address] [place] Erythrocyte distribution width (RBC) [Ratio] 16.8 % High 11.5-15.0 [facility] Comment on above: Order Comment: Speci men Type: BLOOD SPECIMENOrdering Facility: [facility] Address: [address] [place] [address] Performed By: #### 5 7021-8 ####[facility]ORATORYCLIA [id number] [address] OF [facility] Hematocrit (Bld) [Volume fraction] 29.8 % Low 39.0-51.0 [facility] Comment on above: Order Comment: Speci men Type: BLOOD SPECIMENOrdering Facility: [facility] Address: [address] [place] [address] Performed By: #### 5 7021-8 ####[facility]ORATORYCLIA [id number] [address] Hemoglobin (Bld) [Mass/Vol] 9.0 g/dL Low 13.0-17.0 [facility] Comment on above: Order Comment: Speci men Type: BLOOD SPECIMENOrdering Facility: [facility] Address: [address] [place] [address] Performed By: #### 5 7021-8 ####[facility]ORATORYCLIA [id number] [address] IMMATURE GRAN % 0.6 % Normal [facility] Comment on above: Order Comment: Speci men Type: BLOOD SPECIMENOrdering Facility: [facility] Address: [address] [place] [address] Performed By: #### 5 7021-8 ####[facility]ORATORYCLIA [id number] [address] IMMATURE GRAN ABS 0.06 k/uL Normal <0.10 [facility] Comment on above: Order Comment: Speci men Type: BLOOD SPECIMENOrdering Facility: [facility] Address: [address] [place] [address] Performed By: #### 5 7021-8 ####[facility]ORATORYCLIA [id number] [address] Lymphocytes (Bld) [#/Vol] 1.73 10*3/uL Normal 1.00-4.00 [facility] Comment on above: Order Comment: Speci men Type: BLOOD SPECIMENOrdering Facility: [facility] Address: [address] [place] [address] Performed By: #### 5 7021-8 ####[facility]ORATORYCLIA [id number] [address] Lymphocytes/100 WBC (Bld) 17.9 % Normal [facility] Comment on above: Order Comment: Speci men Type: BLOOD SPECIMENOrdering Facility: [facility] Address: [address] [place] [address] Performed By: #### 5 7021-8 ####[facility]ORATORYCLIA [id number] [address] MCH (RBC) [Entitic mass] 28.1 pg Normal 26.0-34.0 [facility] Comment on above: Order Comment: Speci men Type: BLOOD SPECIMENOrdering Facility: [facility] Address: [address] [place] [address] Performed By: #### 5 7021-8 ####[facility]ORATORYCLIA [id number] [address] MCHC (RBC) [Mass/Vol] 30.2 g/dL Low 30.5-36.0 [facility] Comment on above: Order Comment: Speci men Type: BLOOD SPECIMENOrdering Facility: [facility] Address: [address] [place] [address] Performed By: #### 5 7021-8 ####[facility]ORATORYCLIA [id number] [address] MCV (RBC) [Entitic vol] 93.1 fL Normal 80.0-100.0 [facility] Comment on above: Order Comment: Speci men Type: BLOOD SPECIMENOrdering Facility: [facility] Address: [address] [place] [address] Performed By: #### 5 7021-8 ####[facility]ORATORYCLIA [id number] [address] Monocytes (Bld) [#/Vol] 0.59 10*3/uL Normal <0.87 [facility] Comment on above: Order Comment: Speci men Type: BLOOD SPECIMENOrdering Facility: [facility] Address: [address] [place] [address] Performed By: #### 5 7021-8 ####[facility]ATORYCLIA [id number] [address] STATES [facility] Monocytes/100 WBC (Bld) 6.1 % Normal [facility] Comment on above: Order Comment: Speci men Type: BLOOD SPECIMENOrdering Facility: [facility] Address: [address] [place] [address] Performed By: #### 5 7021-8 ####[facility]ORATORYCLIA [id number] [address] [place] Neutrophils (Bld) [#/Vol] 6.75 10*3/uL Normal 1.45-7.50 [facility] Comment on above: Order Comment: Speci men Type: BLOOD SPECIMENOrdering Facility: [facility] Address: [address] [place] [address] Performed By: #### 5 7021-8 ####[facility]ORATORYCLIA [id number] [address] Neutrophils/100 WBC (Bld) 69.8 % Normal [facility] Comment on above: Order Comment: Speci men Type: BLOOD SPECIMENOrdering Facility: [facility] Address: [address] [place] [address] Performed By: #### 5 7021-8 ####[facility]ORATORYCLIA [id number] [address] [place] Nucleated RBC (Bld) [#/Vol] 10*3/uL Normal <0.01 [facility] Comment on above: Order Comment: Speci men Type: BLOOD SPECIMENOrdering Facility: [facility] Address: [address] [place] [address] Performed By: #### 5 7021-8 ####[facility]ORATORYCLIA [id number] [address] [place] Nucleated RBC/100 WBC (Bld) [Ratio] 0.0 /100 WBC Normal [facility] Comment on above: Order Comment: Speci men Type: BLOOD SPECIMENOrdering Facility: [facility] Address: [address] [place] [address] Performed By: #### 5 7021-8 ####[facility]ORATORYCLIA [id number] [address] [place] Platelet mean volume (Bld) [Entitic vol] 11.3 fL Normal 9.0-12.7 [facility] Comment on above: Order Comment: Speci men Type: BLOOD SPECIMENOrdering Facility: [facility] Address: [address] [place] [address] Performed By: #### 5 7021-8 ####[facility]ORATORYCLIA [id number] [address] [place] Platelets (Bld) [#/Vol] 227 10*3/uL Normal 150-400 [facility] Comment on above: Order Comment: Speci men Type: BLOOD SPECIMENOrdering Facility: [facility] Address: [address] [place] [address] Performed By: #### 5 7021-8 ####[facility]ORATORYCLIA [id number] [address] [place] RBC (Bld) [#/Vol] 3.20 10*6/uL Low 4.20-6.00 [facility] Comment on above: Order Comment: Speci men Type: BLOOD SPECIMENOrdering Facility: [facility] Address: [address] [place] [address] Performed By: #### 5 7021-8 ####[facility]ORATORYCLIA [id number] [address] [place] WBC (Bld) [#/Vol] 9.67 10*3/uL Normal 3.70-11.00 [facility] Comment on above: Order Comment: Speci men Type: BLOOD SPECIMENOrdering Facility: [facility] Address: [address] [place] [address] Performed By: #### 5 7021-8 ####[facility]ORATORYCLIA [id number] [address] OF [facility] CONSULT PROGon 07-27-2021 CONSULT PROG Normal [facility] CSF MANUAL DIFFon 07-27-2021 DIF TTL, CSF 100 cells counted Normal [facility] Comment on above: Order Comment: Speci men Type: CEREBROSPINAL FLUIDOrdering Facility: [facility] Address: [address] [place] [address] Performed By: #### L [id number], 28787-3, [id number] ####[facility]ORATORYCLIA [id number] [address] [place] LYMPH%, CSF 75 % Normal 50-90 [facility] Comment on above: Order Comment: Speci men Type: CEREBROSPINAL FLUIDOrdering Facility: [facility] Address: [address] [place] [address] Performed By: #### L FK3968, 61948-1, [id number] ####[facility]ORATORYCLIA [id number] [place] [address] [place] MONO%, CSF 22 % Normal 10-50 [facility] Comment on above: Order Comment: Speci men Type: CEREBROSPINAL FLUIDOrdering Facility: [facility] Address: [address] [place] [address] Performed By: #### L EC6443, 79387-0, [id number] ####[facility]ORATORYCLIA [id number] [place] [address] [place] NEUT%, CSF 2 % Normal 0-3 [facility] Comment on above: Order Comment: Speci men Type: CEREBROSPINAL FLUIDOrdering Facility: [facility] Address: [address] [place] [address] Performed By: #### L CC2827, 52104-8, [id number] ####[facility]ORATORYCLIA [id number] [address] OTHER CL%, CSF 1 % Normal [facility] Comment on above: Order Comment: Speci men Type: CEREBROSPINAL FLUIDOrdering Facility: [facility] Address: [address] [place] [address] Result Comment: Path ologist review of microscopy results to follow Performed By: #### L TT9765, 95459-5, [id number] ####[facility]ORATORYCLIA [id number] [address] [place] CSF PATHOLOGIST INTERP (LAB REFLEX ORDER-NO BILL)on 07-27-2021 CSF STAFF REVIEW Negative Normal [facility] Comment on above: Order Comment: Speci men Type: CEREBROSPINAL FLUIDOrdering Facility: [facility] Address: [address] [place] [address] Performed By: #### L JJ6061, 36727-7, [id number] ####[facility]ORATORYCLIA [id number] [address] Pathologist name Reviewed by Amador Stevens MD [facility] Comment on above: Order Comment: Speci men Type: CEREBROSPINAL FLUIDOrdering Facility: [facility] Address: [address] [place] [address] Performed By: #### L [id number], 13229-9, [id number] ####[facility]ORATORYCLIA [id number] [address] Cell count panel (CSF)on Clarity (CSF) Clear Normal Clear [facility] Comment on above: Order Comment: Speci men Type: CEREBROSPINAL FLUIDOrdering Facility: [facility] Address: [address] [place] [address] Performed By: #### L [id number], 30448-2, [id number] ####[facility]ATORYCLIA [id number] [address] Clarity (Unsp spec) Not Indicated Normal Clear [facility] Comment on above: Order Comment: Speci men Type: CEREBROSPINAL FLUIDOrdering Facility: [facility] Address: [address] [address] Performed By: #### L PC9888, 26352-2, [id number] ####[facility]ATORYCLIA [id number] [address] Color (CSF) Colorless Normal Colorless [facility] Comment on above: Order Comment: Speci men Type: CEREBROSPINAL FLUIDOrdering Facility: [facility] Address: [address] [place] [address] Performed By: #### L CF9138, 19498-4, VYQ6941 ####[facility]ORATORYCLIA [id number] [address] Color (Spun CSF) Not Indicated Normal Colorless [facility] Comment on above: Order Comment: Speci men Type: CEREBROSPINAL FLUIDOrdering Facility: [facility] Address: [address] [place] [address] Performed By: #### L BV2923, 63481-6, [id number] ####[facility]ATORYCLIA [id number] [address] CSF TUBE NUMBER [employer] Normal [facility] Comment on above: Order Comment: Speci men Type: CEREBROSPINAL FLUIDOrdering Facility: [facility] Address: [address] [place] [address] Performed By: #### L KX1841, 51084-6, [id number] ####[facility]ATORYCLIA [id number] [address] RBC Manual cnt (CSF) [#/Vol] 39 cells/uL High 0-5 [facility] Comment on above: Order Comment: Speci men Type: CEREBROSPINAL FLUIDOrdering Facility: [facility] Address: [address] [place] [address] Performed By: #### L GG3556, 96087-5, [id number] ####[facility]ATORYCLIA [id number] [address] WBC Manual cnt (CSF) [#/Vol] 14 cells/uL High 0-5 [facility] Comment on above: Order Comment: Speci men Type: CEREBROSPINAL FLUIDOrdering Facility: [facility] Address: [address] [place] [address] Performed By: #### L [id number], 38333-0, [id number] ####[facility]ORATORYCLIA [id number] [place] [address] [place] Glucose CSF-ncon 2 Glucose (CSF) [Mass/Vol] 64 mg/dL Normal 40-70 [facility] Comment on above: Order Comment: Speci men Type: CEREBROSPINAL FLUIDOrdering Facility: [facility] Address: [address] [place] [address] Result Comment: Lumb ar CSF glucose values of healthy patients are approximately 60% of the plasma values and must always be compared with a concurrently measured plasma value for adequate clinical interpretation.References: 1. Glucose HK (GLUC3) [package insert V 12.0 [place]]. [employer], [place], [place]. September 2015. 2. Michelle Moore, Loki HGarfield (2015). Chapter 7: Glucose and Lactate. F. Irina rose al.(eds.), Cerebrospinal Fluid in Clinical Neurology. [place]: [employer]. Performed By: #### 2 342-4, 2880-3 ####[facility]ORATORYCLIA [id number] [place] [address] [place] NUTRITIONon 07-27-2021 NUTRITION Normal [facility] Prot CSF-ncon 07-27-2021 Protein (CSF) [Mass/Vol] 58 mg/dL High 15-45 [facility] Comment on above: Order Comment: Speci men Type: CEREBROSPINAL FLUIDOrdering Facility: [facility] Address: [address] [place] [address] Performed By: #### 2 342-4, 2880-3 ####[facility]ORATORYCLIA [id number] [place] [address] [place] aPTT PPPon 07-27-2021 aPTT Coag (PPP) [Time] 68.4 s High 23.0-32.4 [facility] Comment on above: Order Comment: Speci men Type: BLOOD SPECIMENOrdering Facility: [facility] Address: [address] [place] [address] Performed By: #### 1 4979-9 ####[facility]ORATORYCLIA [id number] [address] aPTT Coag (PPP) [Time] 51.3 s High 23.0-32.4 [facility] Comment on above: Order Comment: Speci men Type: BLOOD SPECIMENOrdering Facility: [facility] Address: [address] [place] [address] Performed By: #### 1 4979-9 ####[facility]ORATORYCLIA [id number] [address] ALLIED HEALTHon 07-26-2021 ALLIED HEALTH HNO ID: [id number] Author: Stephanie Maldonado, clothing supervisor Service: Radiology Author Type: Division Roadmaster Type: Allied Health Filed: 07/26/2021 4:10 PM Note Text: Spoke with nurse. Pt getting new EVD today. Try tomorrow. Normal [facility] Bacteria CSF Culton 07-27-19 Bacteria identified Cx Nom (CSF) Abnormal [facility] Comment on above: Performed By: #### 6 06-4 ####[facility]ORATORYCLIA [id number] [address] STATES OF [facility] Basic metabolic 2000 panelon 07-26-2021 Anion gap [Moles/Vol] 6 mmol/L Low 9-18 [facility] Comment on above: Order Comment: Speci men Type: BLOOD SPECIMENOrdering Facility: [facility] Address: [address] [place] [address] Performed By: #### 2 4321-2 ####[facility]ORATORYCLIA [id number] [address] [place] Calcium [Mass/Vol] 9.2 mg/dL Normal 8.5-10.2 [facility] Comment on above: Order Comment: Speci men Type: BLOOD SPECIMENOrdering Facility: [facility] Address: [address] [address] Performed By: #### 2 4321-2 ####[facility]ORATORYCLIA [id number] [address] [place] Chloride [Moles/Vol] 99 mmol/L Normal 97-105 [facility] Comment on above: Order Comment: Speci men Type: BLOOD SPECIMENOrdering Facility: [facility] Address: [address] [place] [address] Performed By: #### 2 4321-2 ####[facility]ORATORYCLIA [id number] [address] [place] CO2 [Moles/Vol] 32 mmol/L High 22-30 [facility] Comment on above: Order Comment: Speci men Type: BLOOD SPECIMENOrdering Facility: [facility] Address: [address] [place] [address] Performed By: #### 2 4321-2 ####[facility]ORATORYCLIA [id number] [address] [place] Creatinine [Mass/Vol] 0.74 mg/dL Normal 0.73-1.22 [facility] Comment on above: Order Comment: Speci men Type: BLOOD SPECIMENOrdering Facility: [facility] Address: [address] [place] [address] Performed By: #### 2 4321-2 ####[facility]ORATORYCLIA [id number] [address] ESTIMATED GLOMERULAR FILTRATION RATE 98 mL/min/1.73m??? Normal >=60 [facility] Comment on above: Order Comment: Speci men Type: BLOOD SPECIMENOrdering Facility: [facility] Address: [address] [place] [address] Result Comment: Luzmaria mated Glomerular Filtration Rate [...] #### 2 4321-2 ####[facility]ORATORYCLIA [id number] [place] [address] [place] Glucose [Mass/Vol] 126 mg/dL High 74-99 [facility] Comment on above: Order Comment: Shira feldman Type: BLOOD SPECIMENOrdering Facility: [facility] Address: [address] [place] [address] Result Comment: The [place] [employer] Association (ADA) provides guidance for cutoff [...] Standards of Medical Care in Diabetes 2016, [place] [employer]. Diabetes Care. 2016.39(Suppl 1). Performed By: #### 2 4321-2 ####[facility]ORATORYCLIA [id number] [place] [address] [place] Potassium [Moles/Vol] 4.2 mmol/L Normal 3.7-5.1 [facility] Comment on above: Order Comment: Shira feldman Type: BLOOD SPECIMENOrdering Facility: [facility] Address: [address] [address] Performed By: #### 2 4321-2 ####[facility] LABORATORYCLIA [id number] [place] [address] [place] Sodium [Moles/Vol] 137 mmol/L Normal 136-144 [facility] Comment on above: Order Comment: Shira feldman Type: BLOOD SPECIMENOrdering Facility: [facility] Address: [address] [address] Performed By: #### 2 4321-2 ####[facility]ORATORYCLIA [id number] [address] STATES [facility] Urea nitrogen [Mass/Vol] 36 mg/dL High 9-24 [facility] Comment on above: Order Comment: Speci men Type: BLOOD SPECIMENOrdering Facility: [facility] Address: [address] [place] [address] Performed By: #### 2 4321-2 ####[facility]ORATORYCLIA [id number] [address] [place] CBC W Auto Differential pane l (Bld)on 07-26-2021 Basophils (Bld) [#/Vol] 0.04 10*3/uL Normal <0.11 [facility] Comment on above: Order Comment: Speci men Type: BLOOD SPECIMENOrdering Facility: [facility] Address: [address] [place] [address] Performed By: #### 5 7021-8 ####[facility]ORATORYCLIA [id number] [address] STATES [facility] Basophils/100 WBC (Bld) 0.4 % Normal [facility] Comment on above: Order Comment: Speci men Type: BLOOD SPECIMENOrdering Facility: [facility] Address: [address] [place] [address] Performed By: #### 5 7021-8 ####[facility]ORATORYCLIA [id number] [address] Differential cell count method Nom (Bld) Auto Normal [facility] Comment on above: Order Comment: Speci men Type: BLOOD SPECIMENOrdering Facility: [facility] Address: [address] [place] [address] Performed By: #### 5 7021-8 ####[facility]ORATORYCLIA [id number] [address] [place] Eosinophils (Bld) [#/Vol] 0.63 10*3/uL High <0.46 [facility] Comment on above: Order Comment: Speci men Type: BLOOD SPECIMENOrdering Facility: [facility] Address: [address] [place] [address] Performed By: #### 5 7021-8 ####[facility]ORATORYCLIA [id number] [address] [place] Eosinophils/100 WBC (Bld) 5.8 % Normal [facility] Comment on above: Order Comment: Speci men Type: BLOOD SPECIMENOrdering Facility: [facility] Address: [address] [place] [address] Performed By: #### 5 7021-8 ####[facility]ORATORYCLIA [id number] [address] Erythrocyte distribution width (RBC) [Ratio] 16.8 % High 11.5-15.0 [facility] Comment on above: Order Comment: Speci men Type: BLOOD SPECIMENOrdering Facility: [facility] Address: [address] [place] [address] Performed By: #### 5 7021-8 ####[facility]ORATORYCLIA [id number] [address] Hematocrit (Bld) [Volume fraction] 31.2 % Low 39.0-51.0 [facility] Comment on above: Order Comment: Speci men Type: BLOOD SPECIMENOrdering Facility: [facility] Address: [address] [place] [address] Performed By: #### 5 7021-8 ####[facility]ORATORYCLIA [id number] [address] [place] Hemoglobin (Bld) [Mass/Vol] 9.1 g/dL Low 13.0-17.0 [facility] Comment on above: Order Comment: Speci men Type: BLOOD SPECIMENOrdering Facility: [facility] Address: [address] [place] [address] Performed By: #### 5 7021-8 ####[facility]ORATORYCLIA [id number] [address] IMMATURE GRAN % 0.6 % Normal [facility] Comment on above: Order Comment: Speci men Type: BLOOD SPECIMENOrdering Facility: [facility] Address: [address] [place] [address] Performed By: #### 5 7021-8 ####[facility]ORATORYCLIA [id number] [address] IMMATURE GRAN ABS 0.07 k/uL Normal <0.10 [facility] Comment on above: Order Comment: Speci men Type: BLOOD SPECIMENOrdering Facility: [facility] Address: [address] [place] [address] Performed By: #### 5 7021-8 ####[facility]ORATORYCLIA [id number] [address] Lymphocytes (Bld) [#/Vol] 2.16 10*3/uL Normal 1.00-4.00 [facility] Comment on above: Order Comment: Speci men Type: BLOOD SPECIMENOrdering Facility: [facility] Address: [address] [place] [address] Performed By: #### 5 7021-8 ####[facility]ORATORYCLIA [id number] [address] Lymphocytes/100 WBC (Bld) 20.0 % Normal [facility] Comment on above: Order Comment: Speci men Type: BLOOD SPECIMENOrdering Facility: [facility] Address: [address] [place] [address] Performed By: #### 5 7021-8 ####[facility]ORATORYCLIA [id number] [address] STATES [facility] MCH (RBC) [Entitic mass] 27.7 pg Normal 26.0-34.0 [facility] Comment on above: Order Comment: Speci men Type: BLOOD SPECIMENOrdering Facility: [facility] Address: [address] [place] [address] Performed By: #### 5 7021-8 ####[facility]ORATORYCLIA [id number] [address] STATES [place] [facility] MCHC (RBC) [Mass/Vol] 29.2 g/dL Low 30.5-36.0 [facility] Comment on above: Order Comment: Speci men Type: BLOOD SPECIMENOrdering Facility: [facility] Address: [address] [place] [address] Performed By: #### 5 7021-8 ####[facility]ORATORYCLIA [id number] [address] MCV (RBC) [Entitic vol] 95.1 fL Normal 80.0-100.0 [facility] Comment on above: Order Comment: Speci men Type: BLOOD SPECIMENOrdering Facility: [facility] Address: [address] [place] [address] Performed By: #### 5 7021-8 ####[facility]ORATORYCLIA [id number] [address] [place] Monocytes (Bld) [#/Vol] 0.63 10*3/uL Normal <0.87 [facility] Comment on above: Order Comment: Speci men Type: BLOOD SPECIMENOrdering Facility: [facility] Address: [address] [place] [address] Performed By: #### 5 7021-8 ####[facility]ORATORYCLIA [id number] [address] Monocytes/100 WBC (Bld) 5.8 % Normal [facility] Comment on above: Order Comment: Speci men Type: BLOOD SPECIMENOrdering Facility: [facility] Address: [address] [place] [address] Performed By: #### 5 7021-8 ####[facility]ORATORYCLIA [id number] [address] [place] Neutrophils (Bld) [#/Vol] 7.25 10*3/uL Normal 1.45-7.50 [facility] Comment on above: Order Comment: Speci men Type: BLOOD SPECIMENOrdering Facility: [facility] Address: [address] [place] [address] Performed By: #### 5 7021-8 ####[facility]ORATORYCLIA [id number] [address] Neutrophils/100 WBC (Bld) 67.4 % Normal [facility] Comment on above: Order Comment: Speci men Type: BLOOD SPECIMENOrdering Facility: [facility] Address: [address] [place] [address] Performed By: #### 5 7021-8 ####[facility]ORATORYCLIA [id number] [address] Nucleated RBC (Bld) [#/Vol] 10*3/uL Normal <0.01 [facility] Comment on above: Order Comment: Speci men Type: BLOOD SPECIMENOrdering Facility: [facility] Address: [address] [place] [address] Performed By: #### 5 7021-8 ####[facility]ORATORYCLIA [id number] [address] Nucleated RBC/100 WBC (Bld) [Ratio] 0.0 /100 WBC Normal [facility] Comment on above: Order Comment: Speci men Type: BLOOD SPECIMENOrdering Facility: [facility] Address: [address] [place] [address] Performed By: #### 5 7021-8 ####[facility]ORATORYCLIA [id number] [address] Platelet mean volume (Bld) [Entitic vol] 11.2 fL Normal 9.0-12.7 [facility] Comment on above: Order Comment: Speci men Type: BLOOD SPECIMENOrdering Facility: [facility] Address: [address] [place] [address] Performed By: #### 5 7021-8 ####[facility]ORATORYCLIA [id number] [address] [place] Platelets (Bld) [#/Vol] 245 10*3/uL Normal 150-400 [facility] Comment on above: Order Comment: Speci men Type: BLOOD SPECIMENOrdering Facility: [facility] Address: [address] [place], [place] [address] Performed By: #### 5 7021-8 ####[facility]ORATORYCLIA [id number] [address] STATES [place] [facility] RBC (Bld) [#/Vol] 3.28 10*6/uL Low 4.20-6.00 [facility] Comment on above: Order Comment: Speci men Type: BLOOD SPECIMENOrdering Facility: [facility] Address: [address] [place], [place] [address] Performed By: #### 5 7021-8 ####[facility]ORATORYCLIA [id number] [address] STATES [place] [facility] WBC (Bld) [#/Vol] 10.78 10*3/uL Normal 3.70-11.00 [facility] Comment on above: Order Comment: Speci men Type: BLOOD SPECIMENOrdering Facility: [facility] Address: [address] [place] [address] Performed By: #### 5 7021-8 ####[facility]ORATORYCLIA [id number] [address] OF [facility] CSF MANUAL DIFFon 07-26-2021 DIF TTL, CSF 100 cells counted Normal [facility] Comment on above: Order Comment: Speci men Type: CEREBROSPINAL FLUIDOrdering Facility: [facility] Address: [address] [place], [place] [address] Performed By: #### 3 4563-7, [id number], [id number] ####[facility]ORATORYCLIA [id number] [address] [place] LYMPH%, CSF 26 % Low 50-90 [facility] Comment on above: Order Comment: Speci men Type: CEREBROSPINAL FLUIDOrdering Facility: [facility] Address: [address] [place], [place] [address] Performed By: #### 3 4563-7, [id number], [id number] ####[facility]ATORYCLIA [id number] [place] [address] [place] MACRO%, CSF 10 % High <1 [facility] Comment on above: Order Comment: Speci men Type: CEREBROSPINAL FLUIDOrdering Facility: [facility] Address: [address] [place] [address] Performed By: #### 3 4563-7, [id number], [id number] ####[facility]ATORYCLIA [id number] [place] [address] [place] MONO%, CSF 20 % Normal 10-50 [facility] Comment on above: Order Comment: Speci men Type: CEREBROSPINAL FLUIDOrdering Facility: [facility] Address: [address] [place] [address] Performed By: #### 3 4563-7, [id number], [id number] ####[facility]ATORYCLIA [id number] [place] [address] [place] NEUT%, CSF 40 % High 0-3 [facility] Comment on above: Order Comment: Speci men Type: CEREBROSPINAL FLUIDOrdering Facility: [facility] Address: [address] [place] [address] Performed By: #### 3 4563-7, [id number], [id number] ####[facility]ATORYCLIA [id number] [address] [place] OTHER CL%, CSF 2 % Normal [facility] Comment on above: Order Comment: Speci men Type: CEREBROSPINAL FLUIDOrdering Facility: [facility] Address: [address] [place] [address] Result Comment: Path review to follow. Performed By: #### 3 4563-7, [id number], [id number] ####[facility]ATORYCLIA [id number] [place] [address] [place] REAC LYMPH %, CSF 2 % Normal [facility] Comment on above: Order Comment: Speci men Type: CEREBROSPINAL FLUIDOrdering Facility: [facility] Address: [address] [place] [address] Performed By: #### 3 4563-7, [id number], [id number] ####[facility]ORATORYCLIA [id number] [address] CSF PATHOLOGIST INTERP (LAB REFLEX ORDER-NO BILL)on 07-26-2021 CSF STAFF REVIEW Negative for maligna nt cells. Rare bacteria present, cocci in pairs and chains. Correlation with CSF cultures is recommended. Normal [facility] Comment on above: Order Comment: Speci men Type: CEREBROSPINAL FLUIDOrdering Facility: [facility] Address: [address] [place] [address] Performed By: #### 3 4563-7, [id number], [id number] ####[facility]ORATORYCLIA [id number] [address] Pathologist name Reviewed by Amador Stevens MD [facility] Comment on above: Order Comment: Speci men Type: CEREBROSPINAL FLUIDOrdering Facility: [facility] Address: [address] [place] [address] Performed By: #### 3 4563-7, [id number], [id number] ####[facility]ORATORYCLIA [id number] [address] [place] Cell count panel (CSF)on Clarity (CSF) Slightly Cloudy Abnormal Clear [facility] Comment on above: Order Comment: Speci men Type: CEREBROSPINAL FLUIDOrdering Facility: [facility] Address: [address] [place] [address] Performed By: #### 3 4563-7, [id number], [id number] ####[facility]ORATORYCLIA [id number] [address] [place] Clarity (Unsp spec) Clear Normal Clear [facility] Comment on above: Order Comment: Speci men Type: CEREBROSPINAL FLUIDOrdering Facility: [facility] Address: [address] [place] [address] Performed By: #### 3 4563-7, [id number], [id number] ####[facility]ORATORYCLIA [id number] [address] Color (CSF) Colorless Normal Colorless [facility] Comment on above: Order Comment: Speci men Type: CEREBROSPINAL FLUIDOrdering Facility: [facility] Address: [address] [place] [address] Performed By: #### 3 4563-7, [id number], [id number] ####[facility]ORATORYCLIA [id number] [address] Color (Spun CSF) Not Indicated Normal Colorless [facility] Comment on above: Order Comment: Speci men Type: CEREBROSPINAL FLUIDOrdering Facility: [facility] Address: [address] [place] [address] Performed By: #### 3 4563-7, [id number], [id number] ####[facility]ATORYCLIA [id number] [address] CSF TUBE [employer] Normal [facility] Comment on above: Order Comment: Speci men Type: CEREBROSPINAL FLUIDOrdering Facility: [facility] Address: [address] [place] [address] Performed By: #### 3 4563-7, [id number], [id number] ####[facility]ORATORYCLIA [id number] [address] RBC Manual cnt (CSF) [#/Vol] 1 cells/uL Normal 0-[address] [place] [address] Comment on above: Order Comment: Speci men Type: CEREBROSPINAL FLUIDOrdering Facility: [facility] Address: [address] [address] Performed By: #### 3 4563-7, [id number], [id number] ####[facility]ATORYCLIA [id number] [address] WBC Manual cnt (CSF) [#/Vol] 50 cells/uL High 0-5 [facility] Comment on above: Order Comment: Speci men Type: CEREBROSPINAL FLUIDOrdering Facility: [facility] Address: [address] [place] [address] Performed By: #### 3 4563-7, [id number], [id number] ####[facility]ORATORYCLIA [id number] [place] [address] [place] Glucose CSF-mCncon Glucose (CSF) [Mass/Vol] 64 mg/dL Normal 40-70 [facility] Comment on above: Order Comment: Speci men Type: CEREBROSPINAL FLUIDOrdering Facility: [facility] Address: [address] [place] [address] Result Comment: Lumb ar CSF glucose values of healthy patients are approximately 60% of the plasma values and must always be compared with a concurrently measured plasma value for adequate clinical interpretation.References: 1. Glucose HK (GLUC3) [package insert V 12.0 [place]]. [employer], [place], [place]. September 2015. 2. Michelle Moore, Loki HGarfield (2015). Chapter 7: Glucose and Lactate. F. Irina rose al.(eds.), Cerebrospinal Fluid in Clinical Neurology. [place]: [employer]. Performed By: #### 2 880-3, 2342-4 ####[facility]ORATORYCLIA [id number] [place] [address] [place] Magnesium SerPl-ncon 07-26 Magnesium [Mass/Vol] 2.3 mg/dL Normal 1.7-2.3 [facility] Comment on above: Order Comment: Speci men Type: BLOOD SPECIMENOrdering Facility: [facility] Address: [address] [place] [address] Performed By: #### 1 9123-9, 2777-1, 3016-3 ####[facility]ORATORYCLIA [id number] [place] [address] [place] NURSING PROGon 07-26-2021 NURSING PROG Normal [facility] Phosphate SerPl-mCncon 07-26 Phosphate [Mass/Vol] 2.6 mg/dL Low 2.7-4.8 [facility] Comment on above: Order Comment: Speci men Type: BLOOD SPECIMENOrdering Facility: [facility] Address: [address] [place] [address] Performed By: #### 1 9123-9, 2777-1, 3016-3 ####[facility]ORATORYCLIA [id number] [place] [address] [place] Prot CSF-mCncon 07-26-2021 Protein (CSF) [Mass/Vol] 64 mg/dL High 15-45 [facility] Comment on above: Order Comment: Speci men Type: CEREBROSPINAL FLUIDOrdering Facility: [facility] Address: [address] [place] [address] Performed By: #### 2 880-3, 2342-4 ####[facility]ORATORYCLIA [id number] [address] [facility] THERAPY NTon 07-26-2021 THERAPY NT Normal [facility] TSH SerPl-aCncon 07-26-2021 TSH Qn 1.470 m[IU]/L Normal 0.270-4.200 [facility] Comment on above: Order Comment: Speci men Type: BLOOD SPECIMENOrdering Facility: [facility] Address: [address] [place] [address] Performed By: #### 1 9123-9, 2777-1, 3016-3 ####[facility]ORATORYCLIA [id number] [address] [place] VITAMIN B12 BLOODon 07-27-19 Cobalamin (Vitamin B12) [Mass/Vol] 934 pg/mL Normal 232-1,245 [facility] Comment on above: Order Comment: Speci men Type: BLOOD SPECIMENOrdering Facility: [facility] Address: [address] [place] [address] Performed By: #### B 12 ####[facility]ORATORYCLIA [id number] [place] [address] [place] aPTT PPPon 07-26-2021 aPTT Coag (PPP) [Time] 53.6 s High 23.0-32.4 [facility] Comment on above: Order Comment: Speci men Type: BLOOD SPECIMENOrdering Facility: [facility] Address: [address] [place] [address] Performed By: #### 1 4979-9 ####[facility]ORATORYCLIA [id number] [address] aPTT Coag (PPP) [Time] 44.9 s High 23.0-32.4 [facility] Comment on above: Order Comment: Speci men Type: BLOOD SPECIMENOrdering Facility: [facility] Address: [address] [place] [address] Performed By: #### 1 4979-9 ####[facility]ORATORYCLIA [id number] [address] ALLIED HEALTHon 07-25-2021 ALLIED HEALTH HNO ID: [id number] Author: RT Rajwinder(R) Service: Radiology Author Type: Technologist Type: Allied Health Filed: 07/25/2021 1:37 PM Note Text: Called floor for MRI screening form [id number] Normal [facility] Bacteria Bld Culton 07-26-19 22 Bacteria identified Cx Nom (Bld) CULTURE, BLOOD: No growth 5 days Normal [facility] Comment on above: Performed By: #### 6 00-7 ####[facility]ORATORYCLIA [id number] [address] Bacteria identified Cx Nom (Bld) CULTURE, BLOOD: No growth 5 days Normal [facility] Comment on above: Performed By: #### 6 00-7 ####[facility]ORATORYCLIA [id number] [address] CASE MANAGEMon 07-25-2021 CASE MANAGEM Normal [facility] CBC W Auto Differential pane l (Bld)on 07-25-2021 Basophils (Bld) [#/Vol] 0.06 10*3/uL Normal <0.11 [facility] Comment on above: Order Comment: Speci men Type: BLOOD SPECIMENOrdering Facility: [facility] Address: [address] [address] Performed By: #### 5 7021-8 ####[facility] LABORATORYCLIA [id number] [address] STATES [facility] Basophils/100 WBC (Bld) 0.6 % Normal [facility] Comment on above: Order Comment: Speci men Type: BLOOD SPECIMENOrdering Facility: [facility] Address: [address] [place] [address] Performed By: #### 5 7021-8 ####[facility]ORATORYCLIA [id number] [address] Differential cell count method Nom (Bld) Auto Normal [facility] Comment on above: Order Comment: Speci men Type: BLOOD SPECIMENOrdering Facility: [facility] Address: [address] [place] [address] Performed By: #### 5 7021-8 ####[facility]ATORYCLIA [id number] [address] [place] Eosinophils (Bld) [#/Vol] 0.26 10*3/uL Normal <0.46 [facility] Comment on above: Order Comment: Speci men Type: BLOOD SPECIMENOrdering Facility: [facility] Address: [address] [place] [address] Performed By: #### 5 7021-8 ####[facility]ORATORYCLIA [id number] [address] STATES [facility] Eosinophils/100 WBC (Bld) 2.5 % Normal [facility] Comment on above: Order Comment: Speci men Type: BLOOD SPECIMENOrdering Facility: [facility] Address: [address] [place] [address] Performed By: #### 5 7021-8 ####[facility]ATORYCLIA [id number] [address] [place] Erythrocyte distribution width (RBC) [Ratio] 16.9 % High 11.5-15.0 [facility] Comment on above: Order Comment: Speci men Type: BLOOD SPECIMENOrdering Facility: [facility] Address: [address] [place] [address] Performed By: #### 5 7021-8 ####[facility]ORATORYCLIA [id number] [address] OF [facility] Hematocrit (Bld) [Volume fraction] 29.6 % Low 39.0-51.0 [facility] Comment on above: Order Comment: Speci men Type: BLOOD SPECIMENOrdering Facility: [facility] Address: [address] [place] [address] Performed By: #### 5 7021-8 ####[facility]ATORYCLIA [id number] [address] Hemoglobin (Bld) [Mass/Vol] 8.8 g/dL Low 13.0-17.0 [facility] Comment on above: Order Comment: Speci men Type: BLOOD SPECIMENOrdering Facility: [facility] Address: [address] [place] [address] Performed By: #### 5 7021-8 ####[facility] LABORATORYCLIA [id number] [address] IMMATURE GRAN % 0.6 % Normal [facility] Comment on above: Order Comment: Speci men Type: BLOOD SPECIMENOrdering Facility: [facility] Address: [address] [place] [place] [address] Performed By: #### 5 7021-8 ####[facility] LABORATORYCLIA [id number] [address] IMMATURE GRAN ABS 0.06 k/uL Normal <0.10 [facility] Comment on above: Order Comment: Speci men Type: BLOOD SPECIMENOrdering Facility: [facility] Address: [address] [place] [address] Performed By: #### 5 7021-8 ####[facility] LABORATORYCLIA [id number] [address] [facility] Lymphocytes (Bld) [#/Vol] 2.15 10*3/uL Normal 1.00-4.00 [facility] Comment on above: Order Comment: Speci men Type: BLOOD SPECIMENOrdering Facility: [facility] Address: [address] [place] [address] Performed By: #### 5 7021-8 ####[facility] LABORATORYCLIA [id number] [address] Lymphocytes/100 WBC (Bld) 20.7 % Normal [facility] Comment on above: Order Comment: Speci men Type: BLOOD SPECIMENOrdering Facility: [facility] Address: [address] [place] [address] Performed By: #### 5 7021-8 ####[facility] LABORATORYCLIA [id number] [address] STATES [facility] MCH (RBC) [Entitic mass] 28.2 pg Normal 26.0-34.0 [facility] Comment on above: Order Comment: Speci men Type: BLOOD SPECIMENOrdering Facility: [facility] Address: [address] [place] [address] Performed By: #### 5 7021-8 ####[facility] LABORATORYCLIA [id number] [address] STATES [facility] MCHC (RBC) [Mass/Vol] 29.7 g/dL Low 30.5-36.0 [facility] Comment on above: Order Comment: Speci men Type: BLOOD SPECIMENOrdering Facility: [facility] Address: [address] [place] [address] Performed By: #### 5 7021-8 ####[facility] LABORATORYCLIA [id number] [address] MCV (RBC) [Entitic vol] 94.9 fL Normal 80.0-100.0 [facility] Comment on above: Order Comment: Speci men Type: BLOOD SPECIMENOrdering Facility: [facility] Address: [address] [place] [address] Performed By: #### 5 7021-8 ####[facility] LABORATORYCLIA [id number] [place] [address] [place] Monocytes (Bld) [#/Vol] 0.62 10*3/uL Normal <0.87 [facility] Comment on above: Order Comment: Speci men Type: BLOOD SPECIMENOrdering Facility: [facility] Address: [address] [place] [address] Performed By: #### 5 7021-8 ####[facility]ORATORYCLIA [id number] [address] [place] Monocytes/100 WBC (Bld) 6.0 % Normal [facility] Comment on above: Order Comment: Speci men Type: BLOOD SPECIMENOrdering Facility: [facility] Address: [address] [place] [address] Performed By: #### 5 7021-8 ####[facility]ORATORYCLIA [id number] [address] [place] Neutrophils (Bld) [#/Vol] 7.25 10*3/uL Normal 1.45-7.50 [facility] Comment on above: Order Comment: Speci men Type: BLOOD SPECIMENOrdering Facility: [facility] Address: [address] [place] [address] Performed By: #### 5 7021-8 ####[facility]ORATORYCLIA [id number] [address] [place] Neutrophils/100 WBC (Bld) 69.6 % Normal [facility] Comment on above: Order Comment: Speci men Type: BLOOD SPECIMENOrdering Facility: [facility] Address: [address] [place] [address] Performed By: #### 5 7021-8 ####[facility] LABORATORYCLIA [id number] [place] [address] [place] Nucleated RBC (Bld) [#/Vol] 10*3/uL Normal <0.01 [facility] Comment on above: Order Comment: Speci men Type: BLOOD SPECIMENOrdering Facility: [facility] Address: [address] [place] [address] Performed By: #### 5 7021-8 ####[facility] LABORATORYCLIA [id number] [address] [place] Nucleated RBC/100 WBC (Bld) [Ratio] 0.0 /100 WBC Normal [facility] Comment on above: Order Comment: Speci men Type: BLOOD SPECIMENOrdering Facility: [facility] Address: [address] [place] [address] Performed By: #### 5 7021-8 ####[facility]ORATORYCLIA [id number] [place] [address] [place] Platelet mean volume (Bld) [Entitic vol] 11.3 fL Normal 9.0-12.7 [facility] Comment on above: Order Comment: Speci men Type: BLOOD SPECIMENOrdering Facility: [facility] Address: [address] [place] [address] Performed By: #### 5 7021-8 ####[facility]ORATORYCLIA [id number] [place] [address] [place] Platelets (Bld) [#/Vol] 243 10*3/uL Normal 150-400 [facility] Comment on above: Order Comment: Speci men Type: BLOOD SPECIMENOrdering Facility: [facility] Address: [address] Performed By: #### 5 7021-8 ####[facility] LABORATORYCLIA [id number] [place] [address] [place] RBC (Bld) [#/Vol] 3.12 10*6/uL Low 4.20-6.00 [facility] Comment on above: Order Comment: Speci men Type: BLOOD SPECIMENOrdering Facility: [facility] Address: [address] [place] [address] Performed By: #### 5 7021-8 ####[facility]ORATORYCLIA [id number] [place] [address] [place] WBC (Bld) [#/Vol] 10.40 10*3/uL Normal 3.70-11.00 [facility] Comment on above: Order Comment: Speci men Type: BLOOD SPECIMENOrdering Facility: [facility] Address: [address] [place] [address] Performed By: #### 5 7021-8 ####[facility] LABORATORYCLIA [id number] [address] [place] CONSULT PROGon 07-25-2021 CONSULT PROG Normal [facility] MYCOPLASMA PNEUM IGMon 07-25 M. PNEUMO IGM, QUAL Negative Normal Negative [facility] Comment on above: Order Comment: Speci men Type: BLOOD SPECIMENOrdering Facility: [facility] Address: [address] [place] [address] Result Comment: Myco plasma pneumoniae IgM antibody test is used as an aid in diagnosis of recent infection with M. pneumoniae. It may occasionally remain elevated for extended periods after an acute infection. Cannot exclude recent infection if the specimen collected 7-10 days after onset of signs and symptoms. Clinical correlation is required. Performed By: #### M YCOPM ####[facility] LABCLIA [id number] [facility] [id number] [place] NURSING PROGon 07-25-2021 NURSING PROG Normal [facility] THERAPY NTon 07-25-2021 THERAPY NT Normal [facility] THERAPY NT Normal [facility] aPTT PPPon 07-25-2021 aPTT Coag (PPP) [Time] 62.6 s High 23.0-32.4 [facility] Comment on above: Order Comment: Speci men Type: BLOOD SPECIMENOrdering Facility: [facility] Address: [address] [place] [address] Performed By: #### 1 4979-9 ####[facility]ORATORYCLIA [id number] [address] [place] Bacteria Ur Culton 03-20-202 2 Bacteria identified Cx Nom (U) CULTURE, URINE: No growth (<100 CFU/ml) Normal [facility] Comment on above: Performed By: #### 6 30-4 ####[facility]ORATORYCLIA [id number] [place] [address] [place] Basic metabolic 2000 panelon 07-24-2021 Anion gap [Moles/Vol] 13 mmol/L Normal 9-18 [facility] Comment on above: Order Comment: Speci men Type: BLOOD SPECIMENOrdering Facility: [facility] Address: [address] [place] [address] Performed By: #### 1 9123-9, PROCCARLITOS, 7-1, 68866-2 ####[facility]ORATORYCLIA [id number] [place] [address] [place] Calcium [Mass/Vol] 9.5 mg/dL Normal 8.5-10.2 [facility] Comment on above: Order Comment: Speci men Type: BLOOD SPECIMENOrdering Facility: [facility] Address: [address] [address] Performed By: #### 1 9123-9, PROCAL, 2776-1, 59996-5 ####[facility] LABORATORYCLIA [id number] [address] [place] Chloride [Moles/Vol] 102 mmol/L Normal 97-105 [facility] Comment on above: Order Comment: Speci men Type: BLOOD SPECIMENOrdering Facility: [facility] Address: [address] [address] Performed By: #### 1 9123-9, PROCAL, 2776-1, 25647-0 ####[facility]ORATORYCLIA [id number] [place] [address] [place] CO2 [Moles/Vol] 28 mmol/L Normal 22-30 [facility] Comment on above: Order Comment: Speci men Type: BLOOD SPECIMENOrdering Facility: [facility] Address: [address] [address] Performed By: #### 1 9123-9, PROCAL, 2777-1, 59983-2 ####[facility] [id number] [address] [facility] Creatinine [Mass/Vol] 0.86 mg/dL Normal 0.73-1.22 [facility] Comment on above: Order Comment: Speci men Type: BLOOD SPECIMENOrdering Facility: [facility] Address: [address] [address] Performed By: #### 1 9123-9, PROCMO, 2777-1, 27167-5 ####[facility]ITALCLIA [id number] [address] ESTIMATED GLOMERULAR FILTRATION RATE 94 mL/min/1.73m??? Normal >=60 [facility] Comment on above: Order Comment: Speci men Type: BLOOD SPECIMENOrdering Facility: [facility] Address: [address] [address] Result Comment: Luzmaria mated Glomerular Filtration Rate [...] actual GFR. Performed By: #### 1 9123-9, [facility], 2777-1, 34645-8 ####[facility]ORATORYCLIA [id number] [address] STATES [facility] Glucose [Mass/Vol] 148 mg/dL High 74-99 [facility] Comment on above: Order Comment: Speci men Type: BLOOD SPECIMENOrdering Facility: [facility] Address: [address] [address] Result Comment: The [place] Diabetes Association (ADA) provides guidance for cutoff [...] Standards of Medical Care in Diabetes 2016, [place] [employer]. Diabetes Care. 2016.39(Suppl 1). Performed By: #### 1 9123-9, KATIE, 2776-, 34510-6 ####[facility]ORATORYCLIA [id number] [place] [address] [place] Potassium [Moles/Vol] 4.0 mmol/L Normal 3.7-5.1 [facility] Comment on above: Order Comment: Shira feldman Type: BLOOD SPECIMENOrdering Facility: [facility] Address: [address] [place] [address] Performed By: #### 1 9123-9, [facility], 2776-05, 26694-9 ####[facility]ITALCLIA [id number] [address] STATES [facility] Sodium [Moles/Vol] 143 mmol/L Normal 136-144 [facility] Comment on above: Order Comment: Shira feldman Type: BLOOD SPECIMENOrdering Facility: [facility] Address: [address] [place] [address] Performed By: #### 1 9123-9, [place], 2776-05, 77918-4 ####[facility]ORATORYCLIA [id number] [address] [facility] Urea nitrogen [Mass/Vol] 38 mg/dL High 9-24 [facility] Comment on above: Order Comment: Shira feldman Type: BLOOD SPECIMENOrdering Facility: [facility] Address: [address] [place] [address] Performed By: #### 1 9123-9, [facility], 2776-1, 73677-3 ####[facility] LABORATORYCLIA [id number] [place] [address] [place] CBC W Auto Differential pane l (Bld)on 07-24-2021 Basophils (Bld) [#/Vol] 0.06 10*3/uL Normal <0.11 [facility] Comment on above: Order Comment: Speci men Type: BLOOD SPECIMENOrdering Facility: [facility] Address: [address] [address] Performed By: #### 5 7021-8 ####[facility]ORATORYCLIA [id number] [place] [address] [place] Basophils/100 WBC (Bld) 0.6 % Normal [facility] Comment on above: Order Comment: Speci men Type: BLOOD SPECIMENOrdering Facility: [facility] Address: [address] [place] [address] Performed By: #### 5 7021-8 ####[facility]ORATORYCLIA [id number] [address] STATES [facility] Differential cell count method Nom (Bld) Auto Normal [facility] Comment on above: Order Comment: Speci men Type: BLOOD SPECIMENOrdering Facility: [facility] Address: [address] [place] [address] Performed By: #### 5 7021-8 ####[facility] LABORATORYCLIA [id number] [place] [address] [place] Eosinophils (Bld) [#/Vol] 0.03 10*3/uL Normal <0.46 [facility] Comment on above: Order Comment: Speci men Type: BLOOD SPECIMENOrdering Facility: [facility] Address: [address] [place] [address] Performed By: #### 5 7021-8 ####[facility] LABORATORYCLIA [id number] [address] Eosinophils/100 WBC (Bld) 0.3 % Normal [facility] Comment on above: Order Comment: Speci men Type: BLOOD SPECIMENOrdering Facility: [facility] Address: [address] [place] [address] Performed By: #### 5 7021-8 ####[facility]ORATORYCLIA [id number] [address] Erythrocyte distribution width (RBC) [Ratio] 17.0 % High 11.5-15.0 [facility] Comment on above: Order Comment: Speci men Type: BLOOD SPECIMENOrdering Facility: [facility] Address: [address] [place] [address] Performed By: #### 5 7021-8 ####[facility]ORATORYCLIA [id number] [address] Hematocrit (Bld) [Volume fraction] 30.5 % Low 39.0-51.0 [facility] Comment on above: Order Comment: Speci men Type: BLOOD SPECIMENOrdering Facility: [facility] Address: [address] [place] [address] Performed By: #### 5 7021-8 ####[facility]ORATORYCLIA [id number] [address] Hemoglobin (Bld) [Mass/Vol] 9.0 g/dL Low 13.0-17.0 [facility] Comment on above: Order Comment: Speci men Type: BLOOD SPECIMENOrdering Facility: [facility] Address: [address] [place] [address] Performed By: #### 5 7021-8 ####[facility]ORATORYCLIA [id number] [address] IMMATURE GRAN % 0.5 % Normal [facility] Comment on above: Order Comment: Speci men Type: BLOOD SPECIMENOrdering Facility: [facility] Address: [address] [place] [address] Performed By: #### 5 7021-8 ####[facility]ORATORYCLIA [id number] [address] IMMATURE GRAN ABS 0.05 k/uL Normal <0.10 [facility] Comment on above: Order Comment: Speci men Type: BLOOD SPECIMENOrdering Facility: [facility] Address: [address] [address] Performed By: #### 5 7021-8 ####[facility]ORATORYCLIA [id number] [address] [place] Lymphocytes (Bld) [#/Vol] 1.68 10*3/uL Normal 1.00-4.00 [facility] Comment on above: Order Comment: Speci men Type: BLOOD SPECIMENOrdering Facility: [facility] Address: [address] [place] [address] Performed By: #### 5 7021-8 ####[facility]ORATORYCLIA [id number] [address] Lymphocytes/100 WBC (Bld) 16.2 % Normal [facility] Comment on above: Order Comment: Speci men Type: BLOOD SPECIMENOrdering Facility: [facility] Address: [address] [place] [address] Performed By: #### 5 7021-8 ####[facility]ORATORYCLIA [id number] [address] [place] [facility] MCH (RBC) [Entitic mass] 27.4 pg Normal 26.0-34.0 [facility] Comment on above: Order Comment: Speci men Type: BLOOD SPECIMENOrdering Facility: [facility] Address: [address] [place] [address] Performed By: #### 5 7021-8 ####[facility]ORATORYCLIA [id number] [address] [place] MCHC (RBC) [Mass/Vol] 29.5 g/dL Low 30.5-36.0 [facility] Comment on above: Order Comment: Speci men Type: BLOOD SPECIMENOrdering Facility: [facility] Address: [address] [place] [address] Performed By: #### 5 7021-8 ####[facility]ORATORYCLIA [id number] [address] [place] MCV (RBC) [Entitic vol] 93.0 fL Normal 80.0-100.0 [facility] Comment on above: Order Comment: Speci men Type: BLOOD SPECIMENOrdering Facility: [facility] Address: [address] [place] [address] Performed By: #### 5 7021-8 ####[facility] LABORATORYCLIA [id number] [place] [address] [place] Monocytes (Bld) [#/Vol] 0.63 10*3/uL Normal <0.87 [facility] Comment on above: Order Comment: Speci men Type: BLOOD SPECIMENOrdering Facility: [facility] Address: [address] [place] [address] Performed By: #### 5 7021-8 ####[facility]ORATORYCLIA [id number] [address] [place] Monocytes/100 WBC (Bld) 6.1 % Normal [facility] Comment on above: Order Comment: Speci men Type: BLOOD SPECIMENOrdering Facility: [facility] Address: [address] [place] [address] Performed By: #### 5 7021-8 ####[facility]ORATORYCLIA [id number] [place] [address] [place] Neutrophils (Bld) [#/Vol] 7.91 10*3/uL High 1.45-7.50 [facility] Comment on above: Order Comment: Speci men Type: BLOOD SPECIMENOrdering Facility: [facility] Address: [address] [place] [address] Performed By: #### 5 7021-8 ####[facility]ORATORYCLIA [id number] [place] [address] [place] Neutrophils/100 WBC (Bld) 76.3 % Normal [facility] Comment on above: Order Comment: Speci men Type: BLOOD SPECIMENOrdering Facility: [facility] Address: [address] [place] [address] Performed By: #### 5 7021-8 ####[facility]ORATORYCLIA [id number] [address] [place] Nucleated RBC (Bld) [#/Vol] 10*3/uL Normal <0.01 [facility] Comment on above: Order Comment: Speci men Type: BLOOD SPECIMENOrdering Facility: [facility] Address: [address] [place] [address] Performed By: #### 5 7021-8 ####[facility]ORATORYCLIA [id number] [address] [place] Nucleated RBC/100 WBC (Bld) [Ratio] 0.0 /100 WBC Normal [facility] Comment on above: Order Comment: Speci men Type: BLOOD SPECIMENOrdering Facility: [facility] Address: [address] [place] [address] Performed By: #### 5 7021-8 ####[facility] LABORATORYCLIA [id number] [address] [place] Platelet mean volume (Bld) [Entitic vol] 11.1 fL Normal 9.0-12.7 [facility] Comment on above: Order Comment: Speci men Type: BLOOD SPECIMENOrdering Facility: [facility] Address: [address] [place] [address] Performed By: #### 5 7021-8 ####[facility] LABORATORYCLIA [id number] [address] [place] Platelets (Bld) [#/Vol] 285 10*3/uL Normal 150-400 [facility] Comment on above: Order Comment: Speci men Type: BLOOD SPECIMENOrdering Facility: [facility] Address: [address] [place] [address] Performed By: #### 5 7021-8 ####[facility] LABORATORYCLIA [id number] [address] [place] RBC (Bld) [#/Vol] 3.28 10*6/uL Low 4.20-6.00 [facility] Comment on above: Order Comment: Speci men Type: BLOOD SPECIMENOrdering Facility: [facility] Address: [address] [place] [address] Performed By: #### 5 7021-8 ####[facility] LABORATORYCLIA [id number] [place] [address] [place] WBC (Bld) [#/Vol] 10.36 10*3/uL Normal 3.70-11.00 [facility] Comment on above: Order Comment: Speci men Type: BLOOD SPECIMENOrdering Facility: [facility] Address: [address] [place] [address] Performed By: #### 5 7021-8 ####[facility] LABORATORYCLIA [id number] [address] [place] Legionella Ag Ur Qlon 2021 Legionella sp Ag Ql (U) Negative Normal Negative [facility] Comment on above: Order Comment: Speci men Type: URINE SPECIMENOrdering Facility: [facility] Address: [address] [place] [address] Performed By: #### 3 2781-7 ####[facility]ORATORYCLIA [id number] [address] [place] Magnesium SerPl-mCncon 07-24 Magnesium [Mass/Vol] 2.3 mg/dL Normal 1.7-2.3 [facility] Comment on above: Order Comment: Speci men Type: BLOOD SPECIMENOrdering Facility: [facility] Address: [address] [place] [address] Performed By: #### 1 9123-9, PROCAL, 2777-1, 41954-9 ####[facility] LABORATORYCLIA [id number] [place] [address] [place] NURSING PROGon 07-24-2021 NURSING PROG Normal [facility] PROCALCITONIN (LAB)on 2021 Procalcitonin [Mass/Vol] 0.15 ng/mL High <0.09 [facility] Comment on above: Order Comment: Speci men Type: BLOOD SPECIMENOrdering Facility: [facility] Address: [address] [place] [address] Result Comment: For a guided interpretation of test results, please visit the Change in Procalcitonin Calculator, [email or web address]. Performed By: #### 1 9123-9, PROCAL, 2777-1, 32454-5 ####[facility] LABORATORYCLIA [id number] [address] Phosphate SerPl-mCncon 07-24 Phosphate [Mass/Vol] 3.9 mg/dL Normal 2.7-4.8 [facility] Comment on above: Order Comment: Speci men Type: BLOOD SPECIMENOrdering Facility: [facility] Address: [address] [place] [address] Performed By: #### 1 9123-9, PROCAL, 2777-1, 68414-1 ####[facility] LABORATORYCLIA [id number] [address] [place] STREPTOCOCCUS PNEUMONIAE AGo n 07-24-2021 STREPTOCOCCUS PNEUMONIAE AG Normal [facility] Comment on above: Performed By: #### S PNAG ####[facility] LABORATORYCLIA [id number] [address] [place] aPTT PPPon 07-24-2021 aPTT Coag (PPP) [Time] 60.8 s High 23.0-32.4 [facility] Comment on above: Order Comment: Speci men Type: BLOOD SPECIMENOrdering Facility: [facility] Address: [address] [place] [address] Performed By: #### 1 4979-9 ####[facility] LABORATORYCLIA [id number] [address] aPTT Coag (PPP) [Time] 38.2 s High 23.0-32.4 [facility] Comment on above: Order Comment: Speci men Type: BLOOD SPECIMENOrdering Facility: [facility] Address: [address] [place] [address] Performed By: #### 1 4979-9 ####[facility] LABORATORYCLIA [id number] [address] [place] aPTT Coag (PPP) [Time] 35.9 s High 23.0-32.4 [facility] Comment on above: Order Comment: Speci men Type: BLOOD SPECIMENOrdering Facility: [facility] Address: [address] [place] [address] Performed By: #### 1 4979-9 ####[facility] LABORATORYCLIA [id number] [address] aPTT Coag (PPP) [Time] 28.8 s Normal 23.0-32.4 [facility] Comment on above: Order Comment: Speci men Type: BLOOD SPECIMENOrdering Facility: [facility] Address: [address] [place] [address] Performed By: #### 1 4979-9 ####[facility] LABORATORYCLIA [id number] [address] [place] ALLIED HEALTHon 07-23-2021 ALLIED HEALTH Normal [facility] ALLIED HEALTH Normal [facility] ALLIED HEALTH Normal [facility] ARTERIAL BLOOD GASESon 07-23 Base excess Calc (Bld) [Moles/Vol] 4 mmol/L High 0-2 [facility] Comment on above: Order Comment: Speci men Type: ARTERIAL BLOOD SPECIMENOrdering Facility: [facility] Address: [address] [place] [address] Performed By: #### A LLBG ####[facility]ORATORYCLIA [id number] [address] Body temperature 100.58 [degF] Normal [facility] Comment on above: Order Comment: Speci men Type: ARTERIAL BLOOD SPECIMENOrdering Facility: [facility] Address: [address] [place] [address] Performed By: #### A LLBG ####[facility]ORATORYCLIA [id number] [place] [address] [place] CALCIUM IONIZED, PH CORRECTED 1.26 mmol/L Normal 1.08-1.30 [facility] Comment on above: Order Comment: Speci men Type: ARTERIAL BLOOD SPECIMENOrdering Facility: [facility] Address: [address] [place] [address] Performed By: #### A LLBG ####[facility] LABORATORYCLIA [id number] [place] [address] [place] Calcium.ionized (BldV) [Mass/Vol] 1.25 mmol/L Normal 1.08-1.30 [facility] Comment on above: Order Comment: Speci men Type: ARTERIAL BLOOD SPECIMENOrdering Facility: [facility] Address: [address] [place] [address] Performed By: #### A LLBG ####[facility]ORATORYCLIA [id number] [address] [place] Carboxyhemoglobin (BldA) [Mass fraction] 1.2 % Normal 0.0-2.0 [facility] Comment on above: Order Comment: Speci men Type: ARTERIAL BLOOD SPECIMENOrdering Facility: [facility] Address: [address] [place] [address] Result Comment: Carb oxyhemoglobin Reference Range for Smokers: 2.0-8.0% Performed By: #### A LLBG ####[facility]ORATORYCLIA [id number] [place] [address] [place] CO2 (Bld) [Partial pressure] 46 mm Hg Normal 36-46 [facility] Comment on above: Order Comment: Speci men Type: ARTERIAL BLOOD SPECIMENOrdering Facility: [facility] Address: [address] [address] Performed By: #### A LLBG ####[facility]ORATORYCLIA [id number] [place] [address] [place] CO2 [Moles/Vol] 27 mmol/L Normal 22-28 [facility] Comment on above: Order Comment: Speci men Type: ARTERIAL BLOOD SPECIMENOrdering Facility: [facility] Address: [address] [place] [address] Performed By: #### A LLBG ####[facility]ORATORYCLIA [id number] [address] CO2 adjusted to patient's actual temperature (Bld) [Partial pressure] 48 mmHg High 36-46 [facility] Comment on above: Order Comment: Speci men Type: ARTERIAL BLOOD SPECIMENOrdering Facility: [facility] Address: [address] [place] [address] Performed By: #### A LLBG ####[facility]ORATORYCLIA [id number] [address] [place] Glucose [Mass/Vol] 134 mg/dL High 60-105 [facility] Comment on above: Order Comment: Speci men Type: ARTERIAL BLOOD SPECIMENOrdering Facility: [facility] Address: [address] [place] [address] Performed By: #### A LLBG ####[facility]ORATORYCLIA [id number] [address] HCO3 (Bld) [Moles/Vol] 29 mmol/L High 22-26 [facility] Comment on above: Order Comment: Speci men Type: ARTERIAL BLOOD SPECIMENOrdering Facility: [facility] Address: [address] [place] [address] Performed By: #### A LLBG ####[facility]ORATORYCLIA [id number] [address] [place] Hematocrit (Bld) [Volume fraction] 31.4 % Low 39.0-51.0 [facility] Comment on above: Order Comment: Speci men Type: ARTERIAL BLOOD SPECIMENOrdering Facility: [facility] Address: [address] [place] [address] Performed By: #### A LLBG ####[facility]ORATORYCLIA [id number] [address] [place] Hemoglobin (Bld) [Mass/Vol] 10.2 g/dL Low 13.0-17.0 [facility] Comment on above: Order Comment: Speci men Type: ARTERIAL BLOOD SPECIMENOrdering Facility: [facility] Address: [address] [address] Performed By: #### A LLBG ####[facility]ORATORYCLIA [id number] [address] Methemoglobin (Bld) [Mass fraction] % Normal 0.0-1.5 [facility] Comment on above: Order Comment: Speci men Type: ARTERIAL BLOOD SPECIMENOrdering Facility: [facility] Address: [address] [address] Performed By: #### A LLBG ####[facility] [facility]ORATORYCLIA [id number] [address] O2 THERAPY Ventilator Normal [facility] Comment on above: Order Comment: Speci men Type: ARTERIAL BLOOD SPECIMENOrdering Facility: [facility] Address: [address] [place] [address] Performed By: #### A LLBG ####[facility]ORATORYCLIA [id number] [address] Oxygen (Bld) [Partial pressure] 113 mm Hg High 85-95 [facility] Comment on above: Order Comment: Speci men Type: ARTERIAL BLOOD SPECIMENOrdering Facility: [facility] Address: [address] [place] [address] Performed By: #### A LLBG ####[facility] [facility]ORATORYCLIA [id number] [address] Oxygen adjusted to patient's actual temperature (Bld) [Partial pressure] 119 mmHg High 85-95 [facility] Comment on above: Order Comment: Speci men Type: ARTERIAL BLOOD SPECIMENOrdering Facility: [facility] Address: [address] [address] Performed By: #### A LLBG ####[facility] [facility]ORATORYCLIA [id number] [address] [place] OXYGEN SATURATION, ARTERIAL 98 % Normal 95-98 [facility] Comment on above: Order Comment: Speci men Type: ARTERIAL BLOOD SPECIMENOrdering Facility: [facility] Address: [address] [place] [address] Performed By: #### A LLBG ####[facility]ORATORYCLIA [id number] [address] Oxyhemoglobin (BldA) [Mass fraction] 96 % Normal 95-98 [facility] Comment on above: Order Comment: Speci men Type: ARTERIAL BLOOD SPECIMENOrdering Facility: [facility] Address: [address] [place] [address] Performed By: #### A LLBG ####[facility]ORATORYCLIA [id number] [address] [place] pH (Bld) 7.41 [pH] Normal 7.35-7.45 [facility] Comment on above: Order Comment: Speci men Type: ARTERIAL BLOOD SPECIMENOrdering Facility: [facility] Address: [address] [place] [address] Performed By: #### A LLBG ####[facility]ORATORYCLIA [id number] [address] pH adjusted to patient's actual temperature (Bld) 7.40 Normal 7.35-7.45 [facility] Comment on above: Order Comment: Speci men Type: ARTERIAL BLOOD SPECIMENOrdering Facility: [facility] Address: [address] [place] [address] Performed By: #### A LLBG ####[facility]ORATORYCLIA [id number] [address] [place] Potassium [Moles/Vol] 4.3 mmol/L Normal 3.5-5.0 [facility] Comment on above: Order Comment: Speci men Type: ARTERIAL BLOOD SPECIMENOrdering Facility: [facility] Address: [address] [place] [address] Performed By: #### A LLBG ####[facility]ORATORYCLIA [id number] [address] [place] Sodium [Moles/Vol] 144 mmol/L Normal 136-144 [facility] Comment on above: Order Comment: Speci men Type: ARTERIAL BLOOD SPECIMENOrdering Facility: [facility] Address: [address] [place] [address] Performed By: #### A LLBG ####[facility]ORATORYCLIA [id number] [address] [facility] Bacteria CSF Culton 07-24-19 22 Bacteria identified Cx Nom (CSF) Abnormal [facility] Comment on above: Performed By: #### 6 06-4 ####[facility]ORATORYCLIA [id number] [address] [place] Basic metabolic 2000 panelon 07-23-2021 Anion gap [Moles/Vol] 12 mmol/L Normal 9-18 [facility] Comment on above: Order Comment: Speci men Type: BLOOD SPECIMENOrdering Facility: [facility] Address: [address] [place] [address] Performed By: #### 2 4321-2 ####[facility]ORATORYCLIA [id number] [place] [address] [place] Calcium [Mass/Vol] 9.7 mg/dL Normal 8.5-10.2 [facility] Comment on above: Order Comment: Speci men Type: BLOOD SPECIMENOrdering Facility: [facility] Address: [address] [place] [address] Performed By: #### 2 4321-2 ####[facility]ORATORYCLIA [id number] [place] [address] [place] Chloride [Moles/Vol] 105 mmol/L Normal 97-105 [facility] Comment on above: Order Comment: Speci men Type: BLOOD SPECIMENOrdering Facility: [facility] Address: [address] [place] [address] Performed By: #### 2 4321-2 ####[facility]ORATORYCLIA [id number] [place] [address] [place] CO2 [Moles/Vol] 28 mmol/L Normal 22-30 [facility] Comment on above: Order Comment: Speci men Type: BLOOD SPECIMENOrdering Facility: [facility] Address: [address] [address] Performed By: #### 2 4321-2 ####[facility]ORATORYCLIA [id number] [address] [place] [facility] Creatinine [Mass/Vol] 0.78 mg/dL Normal 0.73-1.22 [facility] Comment on above: Order Comment: Speci men Type: BLOOD SPECIMENOrdering Facility: [facility] Address: [address] [place] [address] Performed By: #### 2 4321-2 ####[facility]CL[facility] [id number] [address] ESTIMATED GLOMERULAR FILTRATION RATE 97 mL/min/1.73m??? Normal >=60 [facility] Comment on above: Order Comment: Speci men Type: BLOOD SPECIMENOrdering Facility: [facility] Address: [address] [place] [address] Result Comment: Luzmaria mated Glomerular Filtration Rate [...] #### 2 4321-2 ####[facility]ORATORYCLIA [id number] [address] [place] Glucose [Mass/Vol] 127 mg/dL High 74-99 [facility] Comment on above: Order Comment: Speci francia Type: BLOOD SPECIMENOrdering Facility: [facility] Address: [address] [address] Result Comment: The [place] [employer] (ADA) provides guidance for cutoff [...] Standards of Medical Care in Diabetes 2016, [place] [employer]. Diabetes Care. 2016.39(Suppl 1). Performed By: #### 2 4321-2 ####[facility]ORATORYCLIA [id number] [place] [address] [place] Potassium [Moles/Vol] 4.3 mmol/L Normal 3.7-5.1 [facility] Comment on above: Order Comment: Shira feldman Type: BLOOD SPECIMENOrdering Facility: [facility] Address: [address] [place] [address] Performed By: #### 2 4321-2 ####[facility]PITALIA [id number] [place] [address] [place] Sodium [Moles/Vol] 145 mmol/L High 136-144 [facility] Comment on above: Order Comment: Shira feldman Type: BLOOD SPECIMENOrdering Facility: [facility] Address: [address] [place] [address] Performed By: #### 2 4321-2 ####[facility]OSPITALIA [id number] [place] [address] [place] Urea nitrogen [Mass/Vol] 37 mg/dL High 9-24 [facility] Comment on above: Order Comment: Shira feldman Type: BLOOD SPECIMENOrdering Facility: [facility] Address: [address] [place] [address] Performed By: #### 2 4321-2 ####[facility]ORATORYCLIA [id number] [place] [address] [place] C diff Tox gens Stl Ql MEGAN+p robeon 07-23-2021 C. difficile toxin genes MEGAN+probe Ql (Stl) Negative Normal Negative for C. difficile toxin by PCR [facility] Comment on above: Order Comment: Speci men Type: STOOL SPECIMENOrdering Facility: [facility] Address: [address] [place] [address] Performed By: #### 5 4067-4 ####[facility]ORATORYCLIA [id number] [address] [place] [facility] CBC W Auto Differential pane l (Bld)on 07-23-2021 Basophils (Bld) [#/Vol] 0.07 10*3/uL Normal <0.11 [facility] Comment on above: Order Comment: Speci men Type: BLOOD SPECIMENOrdering Facility: [facility] Address: [address] [place] [address] Performed By: #### 5 7021-8 ####[facility]ORATORYCLIA [id number] [address] [place] Basophils/100 WBC (Bld) 0.5 % Normal [facility] Comment on above: Order Comment: Speci men Type: BLOOD SPECIMENOrdering Facility: [facility] Address: [address] [place] [address] Performed By: #### 5 7021-8 ####[facility]ORATORYCLIA [id number] [address] Differential cell count method Nom (Bld) Auto Normal [facility] Comment on above: Order Comment: Speci men Type: BLOOD SPECIMENOrdering Facility: [facility] Address: [address] [place] [address] Performed By: #### 5 7021-8 ####[facility]ORATORYCLIA [id number] [place] [address] [place] Eosinophils (Bld) [#/Vol] 10*3/uL Normal <0.46 [facility] Comment on above: Order Comment: Speci men Type: BLOOD SPECIMENOrdering Facility: [facility] Address: [address] [place] [address] Performed By: #### 5 7021-8 ####[facility]ORATORYCLIA [id number] [address] [place] Eosinophils/100 WBC (Bld) 0.2 % Normal [facility] Comment on above: Order Comment: Speci men Type: BLOOD SPECIMENOrdering Facility: [facility] Address: [address] [place] [address] Performed By: #### 5 7021-8 ####[facility]ORATORYCLIA [id number] [address] Erythrocyte distribution width (RBC) [Ratio] 16.7 % High 11.5-15.0 [facility] Comment on above: Order Comment: Speci men Type: BLOOD SPECIMENOrdering Facility: [facility] Address: [address] [place] [address] Performed By: #### 5 7021-8 ####[facility]ORATORYCLIA [id number] [address] Hematocrit (Bld) [Volume fraction] 32.8 % Low 39.0-51.0 [facility] Comment on above: Order Comment: Speci men Type: BLOOD SPECIMENOrdering Facility: [facility] Address: [address] [place] [address] Performed By: #### 5 7021-8 ####[facility]ORATORYCLIA [id number] [address] [place] Hemoglobin (Bld) [Mass/Vol] 9.7 g/dL Low 13.0-17.0 [facility] Comment on above: Order Comment: Speci men Type: BLOOD SPECIMENOrdering Facility: [facility] Address: [address] [place] [address] Performed By: #### 5 7021-8 ####[facility]ATORYCLIA [id number] [address] IMMATURE GRAN % 0.7 % Normal [facility] Comment on above: Order Comment: Speci men Type: BLOOD SPECIMENOrdering Facility: [facility] Address: [address] [address] Performed By: #### 5 7021-8 ####[facility]ORATORYCLIA [id number] [address] IMMATURE GRAN ABS 0.09 k/uL Normal <0.10 [facility] Comment on above: Order Comment: Speci men Type: BLOOD SPECIMENOrdering Facility: [facility] Address: [address] [place] [address] Performed By: #### 5 7021-8 ####[facility]ORATORYCLIA [id number] [address] Lymphocytes (Bld) [#/Vol] 1.94 10*3/uL Normal 1.00-4.00 [facility] Comment on above: Order Comment: Speci men Type: BLOOD SPECIMENOrdering Facility: [facility] Address: [address] [place] [address] Performed By: #### 5 7021-8 ####[facility]ORATORYCLIA [id number] [address] Lymphocytes/100 WBC (Bld) 14.6 % Normal [facility] Comment on above: Order Comment: Speci men Type: BLOOD SPECIMENOrdering Facility: [facility] Address: [address] [place] [address] Performed By: #### 5 7021-8 ####[facility]ORATORYCLIA [id number] [address] MCH (RBC) [Entitic mass] 27.2 pg Normal 26.0-34.0 [facility] Comment on above: Order Comment: Speci men Type: BLOOD SPECIMENOrdering Facility: [facility] Address: [address] [place] [address] Performed By: #### 5 7021-8 ####[facility]ORATORYCLIA [id number] [address] MCHC (RBC) [Mass/Vol] 29.6 g/dL Low 30.5-36.0 [facility] Comment on above: Order Comment: Speci men Type: BLOOD SPECIMENOrdering Facility: [facility] Address: [address] [place] [address] Performed By: #### 5 7021-8 ####[facility]ORATORYCLIA [id number] [address] [place] MCV (RBC) [Entitic vol] 92.1 fL Normal 80.0-100.0 [facility] Comment on above: Order Comment: Speci men Type: BLOOD SPECIMENOrdering Facility: [facility] Address: [address] [place] [address] Performed By: #### 5 7021-8 ####[facility]ORATORYCLIA [id number] [address] [place] Monocytes (Bld) [#/Vol] 0.74 10*3/uL Normal <0.87 [facility] Comment on above: Order Comment: Speci men Type: BLOOD SPECIMENOrdering Facility: [facility] Address: [address] [place] [address] Performed By: #### 5 7021-8 ####[facility]ORATORYCLIA [id number] [address] [place] Monocytes/100 WBC (Bld) 5.6 % Normal [facility] Comment on above: Order Comment: Speci men Type: BLOOD SPECIMENOrdering Facility: [facility] Address: [address] [place] [address] Performed By: #### 5 7021-8 ####[facility]ORATORYCLIA [id number] [address] [place] Neutrophils (Bld) [#/Vol] 10.43 10*3/uL High 1.45-7.50 [facility] Comment on above: Order Comment: Speci men Type: BLOOD SPECIMENOrdering Facility: [facility] Address: [address] [place] [address] Performed By: #### 5 7021-8 ####[facility]ORATORYCLIA [id number] [address] [place] Neutrophils/100 WBC (Bld) 78.4 % Normal [facility] Comment on above: Order Comment: Speci men Type: BLOOD SPECIMENOrdering Facility: [facility] Address: [address] [address] Performed By: #### 5 7021-8 ####[facility]ORATORYCLIA [id number] [address] [place] Nucleated RBC (Bld) [#/Vol] 10*3/uL Normal <0.01 [facility] Comment on above: Order Comment: Speci men Type: BLOOD SPECIMENOrdering Facility: [facility] Address: [address] [place] [address] Performed By: #### 5 7021-8 ####[facility]ORATORYCLIA [id number] [address] Nucleated RBC/100 WBC (Bld) [Ratio] 0.0 /100 WBC Normal [facility] Comment on above: Order Comment: Speci men Type: BLOOD SPECIMENOrdering Facility: [facility] Address: [address] [place] [address] Performed By: #### 5 7021-8 ####[facility]ORATORYCLIA [id number] [address] [place] Platelet mean volume (Bld) [Entitic vol] 11.0 fL Normal 9.0-12.7 [facility] Comment on above: Order Comment: Speci men Type: BLOOD SPECIMENOrdering Facility: [facility] Address: [address] [address] Performed By: #### 5 7021-8 ####[facility]ORATORYCLIA [id number] [address] [place] Platelets (Bld) [#/Vol] 381 10*3/uL Normal 150-400 [facility] Comment on above: Order Comment: Speci men Type: BLOOD SPECIMENOrdering Facility: [facility] Address: [address] [place], [place] [address] Performed By: #### 5 7021-8 ####[facility]ORATORYCLIA [id number] [address] [place] RBC (Bld) [#/Vol] 3.56 10*6/uL Low 4.20-6.00 [facility] Comment on above: Order Comment: Speci men Type: BLOOD SPECIMENOrdering Facility: [facility] Address: [address] [place] [address] Performed By: #### 5 7021-8 ####[facility]ORATORYCLIA [id number] [address] [place] [facility] WBC (Bld) [#/Vol] 13.29 10*3/uL High 3.70-11.00 [facility] Comment on above: Order Comment: Speci men Type: BLOOD SPECIMENOrdering Facility: [facility] Address: [address] [place] [address] Performed By: #### 5 7021-8 ####[facility]ORATORYCLIA [id number] [address] [facility] CONSULT PROGon 07-23-2021 CONSULT PROG Normal [facility] CONSULT PROG Normal [facility] CSF MANUAL DIFFon 07-23-2021 DIF TTL, CSF 100 cells counted Normal [facility] Comment on above: Order Comment: Speci men Type: CEREBROSPINAL FLUIDOrdering Facility: [facility] Address: [address] [place] [address] Performed By: #### L [id number], [id number], 47788-7 ####[facility]ORATORYCLIA [id number] [address] [place] LYMPH%, CSF 2 % Low 50-90 [facility] Comment on above: Order Comment: Speci men Type: CEREBROSPINAL FLUIDOrdering Facility: [facility] Address: [address] [place] [address] Performed By: #### L [id number], [id number], 02973-1 ####[facility]ATORYCLIA [id number] [address] [place] MONO%, CSF 9 % Low 10-50 [facility] Comment on above: Order Comment: Speci men Type: CEREBROSPINAL FLUIDOrdering Facility: [facility] Address: [address] [place] [address] Performed By: #### L [id number], [id number], 47187-5 ####[facility]ATORYCLIA [id number] [address] [place] NEUT%, CSF 89 % High 0-3 [facility] Comment on above: Order Comment: Speci men Type: CEREBROSPINAL FLUIDOrdering Facility: [facility] Address: [address] [place] [address] Performed By: #### L [id number], DHO2627, 91669-9 ####[facility] LABORATORYCLIA [id number] [address] CSF PATHOLOGIST INTERP (LAB REFLEX ORDER-NO BILL)on 07-23-2021 CSF STAFF REVIEW Negative for maligna nt cells. Numerous bacterial organisms present, cocci in pairs and chains. Recommend correlation with CSF culture results. Normal [facility] Comment on above: Order Comment: Speci men Type: CEREBROSPINAL FLUIDOrdering Facility: [facility] Address: [address] [place] [address] Performed By: #### L BY3116, IUC3804, 17111-8 ####[facility] LABORATORYCLIA [id number] [address] Pathologist name Reviewed by Amador Stevens MD [facility] Comment on above: Order Comment: Speci men Type: CEREBROSPINAL FLUIDOrdering Facility: [facility] Address: [address] [place] [address] Performed By: #### L [id number], LUD2833, 81494-8 ####[facility] LABORATORYCLIA [id number] [address] [place] BRAIN WO IVCONon 03-19-[address] BRAIN WO IVCON Normal [facility] Cell count panel (CSF)on Clarity (CSF) Clear Normal Clear [facility] Comment on above: Order Comment: Speci men Type: CEREBROSPINAL FLUIDOrdering Facility: [facility] Address: [address] [place] [address] Performed By: #### L OS2688, SWY8471, 69246-5 ####[facility]ORATORYCLIA [id number] [address] Clarity (Unsp spec) Not Indicated Normal Clear [facility] Comment on above: Order Comment: Speci men Type: CEREBROSPINAL FLUIDOrdering Facility: [facility] Address: [address] [place] [address] Performed By: #### L ER4126, LDA7847, 78222-4 ####[facility] LABORATORYCLIA [id number] [address] Color (CSF) Colorless Normal Colorless [facility] Comment on above: Order Comment: Speci men Type: CEREBROSPINAL FLUIDOrdering Facility: [facility] Address: [address] [place] [address] Performed By: #### L GY9531, VRZ1431, 71694-6 ####[facility]ORATORYCLIA [id number] [address] Color (Spun CSF) Not Indicated Normal Colorless [facility] Comment on above: Order Comment: Speci men Type: CEREBROSPINAL FLUIDOrdering Facility: [facility] Address: [address] [place] [address] Performed By: #### L [id number], EFV1444, 28379-6 ####[facility]ORATORYCLIA [id number] [address] CSF TUBE NUMBER Sterile Container Normal [facility] Comment on above: Order Comment: Speci men Type: CEREBROSPINAL FLUIDOrdering Facility: [facility] Address: [address] [place] [address] Performed By: #### L [id number], BMH6838, 47869-6 ####[facility] LABORATORYCLIA [id number] [address] RBC Manual cnt (CSF) [#/Vol] 7 cells/uL High 0-5 [facility] Comment on above: Order Comment: Speci men Type: CEREBROSPINAL FLUIDOrdering Facility: [facility] Address: [address] [place] [address] Performed By: #### L HT3859, HHM1779, 06303-8 ####[facility] LABORATORYCLIA [id number] [address] WBC Manual cnt (CSF) [#/Vol] 193 cells/uL High 0-5 [facility] Comment on above: Order Comment: Speci men Type: CEREBROSPINAL FLUIDOrdering Facility: [facility] Address: [address] [place] [address] Performed By: #### L IG2917, IBT9239, 48294-1 ####[facility]ITAL[facility]IA [id number] [address] Glucose CSF-mCncon 2 Glucose (CSF) [Mass/Vol] 81 mg/dL High 40-70 [facility] Comment on above: Order Comment: Speci men Type: CEREBROSPINAL FLUIDOrdering Facility: [facility] Address: [address] [place] [address] Result Comment: Lumb ar CSF glucose values of healthy patients are approximately 60% of the plasma values and must always be compared with a concurrently measured plasma value for adequate clinical interpretation.References: 1. Glucose HK (GLUC3) [package insert V 12.0 [place]]. [employer], [place], [place]. September 2015. 2. Teresa H., He, H. (2015). Chapter 7: Glucose and Lactate. Marianela Rothman.(eds.), Cerebrospinal Fluid in Clinical Neurology. [place]: [employer]. Performed By: #### 2 342-4, 2880-3 ####[facility] LABORATORYCLIA [id number] [address] NURSING PROGon 07-23-2021 NURSING PROG Normal [facility] NURSING PROG Normal [facility] Prot CSF-mCncon 07-23-2021 Protein (CSF) [Mass/Vol] 68 mg/dL High 15-45 [facility] Comment on above: Order Comment: Speci men Type: CEREBROSPINAL FLUIDOrdering Facility: [facility] Address: [address] [place] [address] Performed By: #### 2 342-4, 2880-3 ####[facility] LABORATORYCLIA [id number] [address] Urinalysis complete panel (U )on 07-23-2021 Bilirubin Ql (U) Negative Normal Negative [facility] Comment on above: Order Comment: Speci men Type: URINE SPECIMENOrdering Facility: [facility] Address: [address] [place] [address] Performed By: #### 2 4356-8 ####[facility] LABORATORYCLIA [id number] [address] [place] Clarity (Unsp spec) Clear Normal Clear [facility] Comment on above: Order Comment: Speci men Type: URINE SPECIMENOrdering Facility: [facility] Address: [address] [place] [address] Performed By: #### 2 4356-8 ####[facility] LABORATORYCLIA [id number] [address] Color (U) Light Yellow Normal yellow [facility] Comment on above: Order Comment: Speci men Type: URINE SPECIMENOrdering Facility: [facility] Address: [address] [place] [address] Performed By: #### 2 4356-8 ####[facility] LABORATORYCLIA [id number] [address] Glucose Test strip (U) [Mass/Vol] Negative Normal Negative [facility] Comment on above: Order Comment: Speci men Type: URINE SPECIMENOrdering Facility: [facility] Address: [address] [place], [place] [address] Performed By: #### 2 4356-8 ####[facility] LABORATORYCLIA [id number] [address] Hemoglobin Ql (U) Negative Normal Negative [facility] Comment on above: Order Comment: Speci men Type: URINE SPECIMENOrdering Facility: [facility] Address: [address] [address] Performed By: #### 2 4356-8 ####[facility] LABORATORYCLIA [id number] [address] [place] [facility] Ketones Ql (U) Negative Normal Negative [facility] Comment on above: Order Comment: Speci men Type: URINE SPECIMENOrdering Facility: [facility] Address: [facility] [place] [place] [address] Performed By: #### 2 4356-8 ####[facility] LABORATORYCLIA [id number] [address] Leukocyte esterase Test strip Ql (U) Negative Normal Negative [facility] Comment on above: Order Comment: Speci men Type: URINE SPECIMENOrdering Facility: [facility] Address: [address] [address] Performed By: #### 2 4356-8 ####[facility] LABORATORYCLIA [id number] [address] Nitrite Ql (U) Negative Normal Negative [facility] Comment on above: Order Comment: Speci men Type: URINE SPECIMENOrdering Facility: [facility] Address: [address] [address] Performed By: #### 2 4356-8 ####[facility] LABORATORYCLIA [id number] [address] pH (U) 6.0 [pH] Normal 5.0-8.0 [facility] Comment on above: Order Comment: Speci men Type: URINE SPECIMENOrdering Facility: [facility] Address: [address] [address] Performed By: #### 2 4356-8 ####[facility] LABORATORYCLIA [id number] [address] Protein (U) [Mass/Vol] 1+ Abnormal Negative [facility] Comment on above: Order Comment: Speci men Type: URINE SPECIMENOrdering Facility: [facility] Address: [address] [place] [address] Performed By: #### 2 4356-8 ####[facility] LABORATORYCLIA [id number] [address] RBC LM.HPF (Urine sed) [#/Area] 0-3 /HPF Normal 0-3 /HPF [facility] Comment on above: Order Comment: Speci men Type: URINE SPECIMENOrdering Facility: [facility] Address: [address] [place] [address] Performed By: #### 2 4356-8 ####[facility] LABORATORYCLIA [id number] [address] Specific gravity (U) [Rel density] 1.018 Normal 1.005-1.030 [facility] Comment on above: Order Comment: Speci men Type: URINE SPECIMENOrdering Facility: [facility] Address: [address] [place] [address] Performed By: #### 2 4356-8 ####[facility] LABORATORYCLIA [id number] [address] Urobilinogen Ql (U) Normal Normal Negative [facility] Comment on above: Order Comment: Speci men Type: URINE SPECIMENOrdering Facility: [facility] Address: [address] [place] [address] Performed By: #### 2 4356-8 ####[facility] LABORATORYCLIA [id number] [address] WBC LM.HPF (Urine sed) [#/Area] 0-5 /HPF Normal 0-5 /HPF [facility] Comment on above: Order Comment: Speci men Type: URINE SPECIMENOrdering Facility: [facility] Address: [address] [place] [address] Performed By: #### 2 4356-8 ####[facility] LABORATORYCLIA [id number] [address] Vancomycin random [Mass/Vol] on 07-23-2021 Vancomycin [Mass/Vol] 12.9 ug/mL Normal 10.0-20.0 [facility] Comment on above: Order Comment: Speci men Type: BLOOD SPECIMENOrdering Facility: [facility] Address: [address] [place] [address] Result Comment: Refe rence ranges and high/low indicator flags are provided as general guidelines only. The treating physician must determine appropriate target levels/dosing based on the specific clinical situation. Performed By: #### 4 091-5 ####[facility] LABORATORYCLIA [id number] [address] [place] [facility] XR CHEST 1V FRONTALon 2021 XR CHEST 1V FRONTAL Normal [facility] XR CHEST 1V FRONTAL Normal [facility] aPTT PPPon 07-23-2021 aPTT Coag (PPP) [Time] 32.3 s Normal 23.0-32.4 [facility] Comment on above: Order Comment: Speci men Type: BLOOD SPECIMENOrdering Facility: [facility] Address: [address] [place] [address] Performed By: #### 1 4979-9 ####[facility] LABORATORYCLIA [id number] [address] [place] [facility] aPTT Coag (PPP) [Time] 57.9 s High 23.0-32.4 [facility] Comment on above: Order Comment: Speci men Type: BLOOD SPECIMENOrdering Facility: [facility] Address: [address] [place] [address] Performed By: #### 1 4979-9 ####[facility] LABORATORYCLIA [id number] [address] aPTT Coag (PPP) [Time] 46.3 s High 23.0-32.4 [facility] Comment on above: Order Comment: Speci men Type: BLOOD SPECIMENOrdering Facility: [facility] Address: [address] [place] [address] Performed By: #### 1 4979-9 ####[facility] LABORATORYCLIA [id number] [place] [address] [place] Basic metabolic 2000 panelon 07-22-2021 Anion gap [Moles/Vol] 8 mmol/L Low -18 [facility] Comment on above: Order Comment: Speci men Type: BLOOD SPECIMENOrdering Facility: [facility] Address: [address] [place] [address] Performed By: #### 2 4321-2 ####[facility] LABORATORYCLIA [id number] [place] [address] [place] Calcium [Mass/Vol] 9.5 mg/dL Normal 8.5-10.2 [facility] Comment on above: Order Comment: Speci men Type: BLOOD SPECIMENOrdering Facility: [facility] Address: [address] [place] [address] Performed By: #### 2 4321-2 ####[facility] LABORATORYCLIA [id number] [address] [place] Chloride [Moles/Vol] 105 mmol/L Normal 97-105 [facility] Comment on above: Order Comment: Speci men Type: BLOOD SPECIMENOrdering Facility: [facility] Address: [address] [place] [address] Performed By: #### 2 4321-2 ####[facility] LABORATORYCLIA [id number] [place] [address] [place] CO2 [Moles/Vol] 32 mmol/L High 22-30 [facility] Comment on above: Order Comment: Speci men Type: BLOOD SPECIMENOrdering Facility: [facility] Address: [address] [place] [address] Performed By: #### 2 4321-2 ####[facility] LABORATORYCLIA [id number] [address] [place] [facility] Creatinine [Mass/Vol] 0.75 mg/dL Normal 0.73-1.22 [facility] Comment on above: Order Comment: Johncara feldman Type: BLOOD SPECIMENOrdering Facility: [facility] Address: [address] [place] [address] Performed By: #### 2 4321-2 ####[facility] LABORATORYCLIA [id number] [address] ESTIMATED GLOMERULAR FILTRATION RATE 98 mL/min/1.73m??? Normal >=60 [facility] Comment on above: Order Comment: Shira feldman Type: BLOOD SPECIMENOrdering Facility: [facility] Address: [address] [place] [address] Result Comment: Luzmaria mated Glomerular Filtration Rate [...] GFR. Performed By: #### 2 4321-2 ####[facility]OSPITALIA [id number] [address] Glucose [Mass/Vol] 128 mg/dL High 74-99 [facility] Comment on above: Order Comment: Shira francia Type: BLOOD SPECIMENOrdering Facility: [facility] Address: [address] [place] [address] Result Comment: The [place] Diabetes Association (ADA) provides guidance for cutoff [...] Standards of Medical Care in Diabetes 2016, [place] [employer]. Diabetes Care. 2016.39(Suppl 1). Performed By: #### 2 4321-2 ####[facility] LABORATORYCLIA [id number] [address] [place] [facility] Potassium [Moles/Vol] 3.7 mmol/L Normal 3.7-5.1 [facility] Comment on above: Order Comment: Speci men Type: BLOOD SPECIMENOrdering Facility: [facility] Address: [address] [place] [address] Performed By: #### 2 4321-2 ####[facility] LABORATORYCLIA [id number] [address] Sodium [Moles/Vol] 145 mmol/L High 136-144 [facility] Comment on above: Order Comment: Speci men Type: BLOOD SPECIMENOrdering Facility: [facility] Address: [address] [place] [address] Performed By: #### 2 4321-2 ####[facility] LABORATORYCLIA [id number] [address] Urea nitrogen [Mass/Vol] 39 mg/dL High 9-24 [facility] Comment on above: Order Comment: Speci men Type: BLOOD SPECIMENOrdering Facility: [facility] Address: [address] [place] [address] Performed By: #### 2 4321-2 ####[facility] LABORATORYCLIA [id number] [address] [place] CASE MANAGEMon 07-22-2021 CASE MANAGEM Normal [facility] CBC W Auto Differential pane l (Bld)on 07-22-2021 Basophils (Bld) [#/Vol] 0.06 10*3/uL Normal <0.11 [facility] Comment on above: Order Comment: Speci men Type: BLOOD SPECIMENOrdering Facility: [facility] Address: [address] [place] [address] Performed By: #### 5 7021-8 ####[facility]ORATORYCLIA [id number] [address] STATES [facility] Basophils/100 WBC (Bld) 0.5 % Normal [facility] Comment on above: Order Comment: Speci men Type: BLOOD SPECIMENOrdering Facility: [facility] Address: [address] [place] [address] Performed By: #### 5 7021-8 ####[facility]ORATORYCLIA [id number] [address] [place] Differential cell count method Nom (Bld) Auto Normal [facility] Comment on above: Order Comment: Speci men Type: BLOOD SPECIMENOrdering Facility: [facility] Address: [address] [place] [address] Performed By: #### 5 7021-8 ####[facility] LABORATORYCLIA [id number] [address] [place] Eosinophils (Bld) [#/Vol] 0.44 10*3/uL Normal <0.46 [facility] Comment on above: Order Comment: Speci men Type: BLOOD SPECIMENOrdering Facility: [facility] Address: [address] [place] [address] Performed By: #### 5 7021-8 ####[facility]ORATORYCLIA [id number] [address] Eosinophils/100 WBC (Bld) 3.9 % Normal [facility] Comment on above: Order Comment: Speci men Type: BLOOD SPECIMENOrdering Facility: [facility] Address: [address] [place] [address] Performed By: #### 5 7021-8 ####[facility]ORATORYCLIA [id number] [address] [place] Erythrocyte distribution width (RBC) [Ratio] 17.0 % High 11.5-15.0 [facility] Comment on above: Order Comment: Speci men Type: BLOOD SPECIMENOrdering Facility: [facility] Address: [address] [address] Performed By: #### 5 7021-8 ####[facility] LABORATORYCLIA [id number] [address] Hematocrit (Bld) [Volume fraction] 32.0 % Low 39.0-51.0 [facility] Comment on above: Order Comment: Speci men Type: BLOOD SPECIMENOrdering Facility: [facility] Address: [address] [place] [address] Performed By: #### 5 7021-8 ####[facility] LABORATORYCLIA [id number] [address] Hemoglobin (Bld) [Mass/Vol] 9.3 g/dL Low 13.0-17.0 [facility] Comment on above: Order Comment: Speci men Type: BLOOD SPECIMENOrdering Facility: [facility] Address: [address] [place] [address] Performed By: #### 5 7021-8 ####[facility] LABORATORYCLIA [id number] [address] IMMATURE GRAN % 0.5 % Normal [facility] Comment on above: Order Comment: Speci men Type: BLOOD SPECIMENOrdering Facility: [facility] Address: [address] [place] [address] Performed By: #### 5 7021-8 ####[facility] LABORATORYCLIA [id number] [address] IMMATURE GRAN ABS 0.06 k/uL Normal <0.10 [facility] Comment on above: Order Comment: Speci men Type: BLOOD SPECIMENOrdering Facility: [facility] Address: [address] [place] [address] Performed By: #### 5 7021-8 ####[facility] LABORATORYCLIA [id number] [address] OF [facility] Lymphocytes (Bld) [#/Vol] 1.83 10*3/uL Normal 1.00-4.00 [facility] Comment on above: Order Comment: Speci men Type: BLOOD SPECIMENOrdering Facility: [facility] Address: [address] [place] [address] Performed By: #### 5 7021-8 ####[facility] LABORATORYCLIA [id number] [address] Lymphocytes/100 WBC (Bld) 16.1 % Normal [facility] Comment on above: Order Comment: Speci men Type: BLOOD SPECIMENOrdering Facility: [facility] Address: [address] [place] [address] Performed By: #### 5 7021-8 ####[facility] LABORATORYCLIA [id number] [address] MCH (RBC) [Entitic mass] 27.0 pg Normal 26.0-34.0 [facility] Comment on above: Order Comment: Speci men Type: BLOOD SPECIMENOrdering Facility: [facility] Address: [address] [place] [address] Performed By: #### 5 7021-8 ####[facility] LABORATORYCLIA [id number] [address] [place] [facility] MCHC (RBC) [Mass/Vol] 29.1 g/dL Low 30.5-36.0 [facility] Comment on above: Order Comment: Speci men Type: BLOOD SPECIMENOrdering Facility: [facility] Address: [address] [place] [address] Performed By: #### 5 7021-8 ####[facility] LABORATORYCLIA [id number] [address] [place] [facility] MCV (RBC) [Entitic vol] 92.8 fL Normal 80.0-100.0 [facility] Comment on above: Order Comment: Speci men Type: BLOOD SPECIMENOrdering Facility: [facility] Address: [address] [place] [address] Performed By: #### 5 7021-8 ####[facility] LABORATORYCLIA [id number] [address] [place] Monocytes (Bld) [#/Vol] 0.87 10*3/uL High <0.87 [facility] Comment on above: Order Comment: Speci men Type: BLOOD SPECIMENOrdering Facility: [facility] Address: [address] [place] [address] Performed By: #### 5 7021-8 ####[facility] LABORATORYCLIA [id number] [address] [place] Monocytes/100 WBC (Bld) 7.6 % Normal [facility] Comment on above: Order Comment: Speci men Type: BLOOD SPECIMENOrdering Facility: [facility] Address: [address] [place] [address] Performed By: #### 5 7021-8 ####[facility] LABORATORYCLIA [id number] [address] [place] Neutrophils (Bld) [#/Vol] 8.12 10*3/uL High 1.45-7.50 [facility] Comment on above: Order Comment: Speci men Type: BLOOD SPECIMENOrdering Facility: [facility] Address: [address] [place] [address] Performed By: #### 5 7021-8 ####[facility] LABORATORYCLIA [id number] [address] [place] Neutrophils/100 WBC (Bld) 71.4 % Normal [facility] Comment on above: Order Comment: Speci men Type: BLOOD SPECIMENOrdering Facility: [facility] Address: [address] [place] [address] Performed By: #### 5 7021-8 ####[facility] LABORATORYCLIA [id number] [address] [place] Nucleated RBC (Bld) [#/Vol] 10*3/uL Normal <0.01 [facility] Comment on above: Order Comment: Speci men Type: BLOOD SPECIMENOrdering Facility: [facility] Address: [address] [place] [address] Performed By: #### 5 7021-8 ####[facility] LABORATORYCLIA [id number] [address] [place] Nucleated RBC/100 WBC (Bld) [Ratio] 0.0 /100 WBC Normal [facility] Comment on above: Order Comment: Speci men Type: BLOOD SPECIMENOrdering Facility: [facility] Address: [address] [place] [address] Performed By: #### 5 7021-8 ####[facility] LABORATORYCLIA [id number] [address] [place] Platelet mean volume (Bld) [Entitic vol] 10.8 fL Normal 9.0-12.7 [facility] Comment on above: Order Comment: Speci men Type: BLOOD SPECIMENOrdering Facility: [facility] Address: [address] [place] [address] Performed By: #### 5 7021-8 ####[facility] LABORATORYCLIA [id number] [address] [place] Platelets (Bld) [#/Vol] 362 10*3/uL Normal 150-400 [facility] Comment on above: Order Comment: Speci men Type: BLOOD SPECIMENOrdering Facility: [facility] Address: [address] [place] [address] Performed By: #### 5 7021-8 ####[facility] LABORATORYCLIA [id number] [address] [place] RBC (Bld) [#/Vol] 3.45 10*6/uL Low 4.20-6.00 [facility] Comment on above: Order Comment: Speci men Type: BLOOD SPECIMENOrdering Facility: [facility] Address: [address] [place] [address] Performed By: #### 5 7021-8 ####[facility] LABORATORYCLIA [id number] [address] [place] WBC (Bld) [#/Vol] 11.38 10*3/uL High 3.70-11.00 [facility] Comment on above: Order Comment: Speci men Type: BLOOD SPECIMENOrdering Facility: [facility] Address: [address] [place] [address] Performed By: #### 5 7021-8 ####[facility]ORATORYCLIA [id number] [address] [place] Magnesium SerPl-mCncon 07-22 Magnesium [Mass/Vol] 2.3 mg/dL Normal 1.7-2.3 [facility] Comment on above: Order Comment: Speci men Type: BLOOD SPECIMENOrdering Facility: [facility] Address: [address] [place] [address] Performed By: #### 1 9123-9, 2777-1, 00479-8 ####[facility]ORATORYCLIA [id number] [address] [place] NT-proBNP SerPl-ncon 07-22 Natriuretic peptide.B prohormone N-Terminal [Mass/Vol] 328 pg/mL High <125 [facility] Comment on above: Order Comment: Speci men Type: BLOOD SPECIMENOrdering Facility: [facility] Address: [address] [place] [address] Performed By: #### 1 9123-9, 2777-1, 07487-3 ####[facility]ORATORYCLIA [id number] [address] [place] NURSING PROGon 07-22-2021 NURSING PROG Normal [facility] NUTRITIONon 07-22-2021 NUTRITION Normal [facility] Phosphate SerPl-mCncon 07-22 Phosphate [Mass/Vol] 3.5 mg/dL Normal 2.7-4.8 [facility] Comment on above: Order Comment: Speci men Type: BLOOD SPECIMENOrdering Facility: [facility] Address: [address] [place] [address] Performed By: #### 1 9123-9, 2777-1, 84277-5 ####[facility]ORATORYCLIA [id number] [address] [place] THERAPY NTon 07-22-2021 THERAPY NT Normal [facility] THERAPY NT Normal [facility] aPTT PPPon 07-22-2021 aPTT Coag (PPP) [Time] 50.1 s High 23.0-32.4 [facility] Comment on above: Order Comment: Speci men Type: BLOOD SPECIMENOrdering Facility: [facility] Address: [address] [place] [address] Performed By: #### 1 4979-9 ####[facility]ORATORYCLIA [id number] [address] STATES OF [facility] ALLIED HEALTHon 07-21-2021 ALLIED HEALTH Normal [facility] Bacteria Spec Resp Culton Bacteria identified Respiratory culture Nom (Unsp spec) Abnormal [facility] Comment on above: Performed By: #### 3 2355-0 ####[facility] LABORATORYCLIA [id number] [place] [address] [place] Basic metabolic 2000 panelon 07-21-2021 Anion gap [Moles/Vol] 9 mmol/L Normal 9-18 [facility] Comment on above: Order Comment: Speci men Type: BLOOD SPECIMENOrdering Facility: [facility] Address: [address] [place] [address] Performed By: #### 1 9123-9, 2777-1, 67198-5 ####[facility]ORATORYCLIA [id number] [address] [place] Calcium [Mass/Vol] 9.9 mg/dL Normal 8.5-10.2 [facility] Comment on above: Order Comment: Speci men Type: BLOOD SPECIMENOrdering Facility: [facility] Address: [address] [place] [address] Performed By: #### 1 9123-9, 2777-1, 83338-9 ####[facility] LABORATORYCLIA [id number] [place] [address] [place] Chloride [Moles/Vol] 103 mmol/L Normal 97-105 [facility] Comment on above: Order Comment: Speci men Type: BLOOD SPECIMENOrdering Facility: [facility] Address: [address] [place] [address] Performed By: #### 1 9123-9, 2777, 80644-7 ####[facility]ORATORYCLIA [id number] [address] [place] CO2 [Moles/Vol] 33 mmol/L High 22-30 [facility] Comment on above: Order Comment: Speci men Type: BLOOD SPECIMENOrdering Facility: [facility] Address: [address] [place] [address] Performed By: #### 1 9123-9, 27711-04, 29398-4 ####[facility]ORATORYCLIA [id number] [address] STATES [place] [facility] Creatinine [Mass/Vol] 0.80 mg/dL Normal 0.73-1.22 [facility] Comment on above: Order Comment: Speci men Type: BLOOD SPECIMENOrdering Facility: [facility] Address: [address] [place] [address] Performed By: #### 1 9123-9, 27711-04, 09247-7 ####[facility]ORATORYCLIA [id number] [address] ESTIMATED GLOMERULAR FILTRATION RATE 96 mL/min/1.73m??? Normal >=60 [facility] Comment on above: Order Comment: Speci men Type: BLOOD SPECIMENOrdering Facility: [facility] Address: [address] [place] [address] Result Comment: Luzmaria mated Glomerular Filtration Rate [...] GFR. Performed By: #### 1 9123-9, 2777-, 19981-0 ####[facility]ORATORYCLIA [id number] [place] [address] [place] Glucose [Mass/Vol] 148 mg/dL High 74-99 [facility] Comment on above: Order Comment: Speci men Type: BLOOD SPECIMENOrdering Facility: [facility] Address: [address] [place] [address] Result Comment: The [place] Diabetes Association (ADA) provides guidance for cutoff [...] Standards of Medical Care in Diabetes 2016, [place] [employer]. Diabetes Care. 2016.39(Suppl 1). Performed By: #### 1 9123-9, 2777-, 32135-6 ####[facility]ORATORYCLIA [id number] [place] [address] [place] Potassium [Moles/Vol] 4.1 mmol/L Normal 3.7-5.1 [facility] Comment on above: Order Comment: Speci men Type: BLOOD SPECIMENOrdering Facility: [facility] Address: [address] [place] [address] Performed By: #### 1 9123-9, 2777-1, 24037-9 ####[facility]ORATORYCLIA [id number] [place] [address] [place] Sodium [Moles/Vol] 145 mmol/L High 136-144 [facility] Comment on above: Order Comment: Speci men Type: BLOOD SPECIMENOrdering Facility: [facility] Address: [address] [place] [address] Performed By: #### 1 9123-9, 2777-1, 47681-5 ####[facility]ORATORYCLIA [id number] [address] STATES [facility] Urea nitrogen [Mass/Vol] 40 mg/dL High 9-24 [facility] Comment on above: Order Comment: Speci men Type: BLOOD SPECIMENOrdering Facility: [facility] Address: [address] [place] [address] Performed By: #### 1 9123-9, 27711-04, 60846-6 ####[facility]ATORYCLIA [id number] [address] [place] CBC W Auto Differential pane l (Bld)on 07-21-2021 Basophils (Bld) [#/Vol] 0.06 10*3/uL Normal <0.11 [facility] Comment on above: Order Comment: Speci men Type: BLOOD SPECIMENOrdering Facility: [facility] Address: [address] [place] [address] Performed By: #### 5 7021-8 ####[facility]ORATORYCLIA [id number] [address] [place] Basophils/100 WBC (Bld) 0.4 % Normal [facility] Comment on above: Order Comment: Speci men Type: BLOOD SPECIMENOrdering Facility: [facility] Address: [address] [place] [address] Performed By: #### 5 7021-8 ####[facility]ORATORYCLIA [id number] [address] Differential cell count method Nom (Bld) Auto Normal [facility] Comment on above: Order Comment: Speci men Type: BLOOD SPECIMENOrdering Facility: [facility] Address: [address] [place] [address] Performed By: #### 5 7021-8 ####[facility]ORATORYCLIA [id number] [place] [address] [place] Eosinophils (Bld) [#/Vol] 0.04 10*3/uL Normal <0.46 [facility] Comment on above: Order Comment: Speci men Type: BLOOD SPECIMENOrdering Facility: [facility] Address: [address] [place] [address] Performed By: #### 5 7021-8 ####[facility]ORATORYCLIA [id number] [address] [place] Eosinophils/100 WBC (Bld) 0.3 % Normal [facility] Comment on above: Order Comment: Speci men Type: BLOOD SPECIMENOrdering Facility: [facility] Address: [address] [place] [address] Performed By: #### 5 7021-8 ####[facility]ORATORYCLIA [id number] [address] [place] Erythrocyte distribution width (RBC) [Ratio] 17.0 % High 11.5-15.0 [facility] Comment on above: Order Comment: Speci men Type: BLOOD SPECIMENOrdering Facility: [facility] Address: [address] [place] [address] Performed By: #### 5 7021-8 ####[facility]ORATORYCLIA [id number] [address] [place] Hematocrit (Bld) [Volume fraction] 33.1 % Low 39.0-51.0 [facility] Comment on above: Order Comment: Speci men Type: BLOOD SPECIMENOrdering Facility: [facility] Address: [address] [place] [address] Performed By: #### 5 7021-8 ####[facility]ORATORYCLIA [id number] [address] [place] Hemoglobin (Bld) [Mass/Vol] 9.7 g/dL Low 13.0-17.0 [facility] Comment on above: Order Comment: Speci men Type: BLOOD SPECIMENOrdering Facility: [facility] Address: [address] [place] [address] Performed By: #### 5 7021-8 ####[facility] LABORATORYCLIA [id number] [address] IMMATURE GRAN % 0.5 % Normal [facility] Comment on above: Order Comment: Speci men Type: BLOOD SPECIMENOrdering Facility: [facility] Address: [address] [place] [address] Performed By: #### 5 7021-8 ####[facility]ATORYCLIA [id number] [address] IMMATURE GRAN ABS 0.07 k/uL Normal <0.10 [facility] Comment on above: Order Comment: Speci men Type: BLOOD SPECIMENOrdering Facility: [facility] Address: [address] [place] [address] Performed By: #### 5 7021-8 ####[facility]ORATORYCLIA [id number] [address] Lymphocytes (Bld) [#/Vol] 1.99 10*3/uL Normal 1.00-4.00 [facility] Comment on above: Order Comment: Speci men Type: BLOOD SPECIMENOrdering Facility: [facility] Address: [address] [place] [address] Performed By: #### 5 7021-8 ####[facility]ORATORYCLIA [id number] [address] Lymphocytes/100 WBC (Bld) 13.4 % Normal [facility] Comment on above: Order Comment: Speci men Type: BLOOD SPECIMENOrdering Facility: [facility] Address: [address] [place] [address] Performed By: #### 5 7021-8 ####[facility]ORATORYCLIA [id number] [address] STATES [facility] MCH (RBC) [Entitic mass] 27.2 pg Normal 26.0-34.0 [facility] Comment on above: Order Comment: Speci men Type: BLOOD SPECIMENOrdering Facility: [facility] Address: [address] [place] [address] Performed By: #### 5 7021-8 ####[facility]ORATORYCLIA [id number] [address] [place] MCHC (RBC) [Mass/Vol] 29.3 g/dL Low 30.5-36.0 [facility] Comment on above: Order Comment: Speci men Type: BLOOD SPECIMENOrdering Facility: [facility] Address: [address] [place] [address] Performed By: #### 5 7021-8 ####[facility]ORATORYCLIA [id number] [address] [place] MCV (RBC) [Entitic vol] 92.7 fL Normal 80.0-100.0 [facility] Comment on above: Order Comment: Speci men Type: BLOOD SPECIMENOrdering Facility: [facility] Address: [address] [place] [address] Performed By: #### 5 7021-8 ####[facility]ORATORYCLIA [id number] [address] [place] Monocytes (Bld) [#/Vol] 1.10 10*3/uL High <0.87 [facility] Comment on above: Order Comment: Speci men Type: BLOOD SPECIMENOrdering Facility: [facility] Address: [address] [place] [address] Performed By: #### 5 7021-8 ####[facility]ORATORYCLIA [id number] [address] OF [facility] Monocytes/100 WBC (Bld) 7.4 % Normal [facility] Comment on above: Order Comment: Speci men Type: BLOOD SPECIMENOrdering Facility: [facility] Address: [address] [place] [address] Performed By: #### 5 7021-8 ####[facility]ORATORYCLIA [id number] [address] [place] Neutrophils (Bld) [#/Vol] 11.61 10*3/uL High 1.45-7.50 [facility] Comment on above: Order Comment: Speci men Type: BLOOD SPECIMENOrdering Facility: [facility] Address: [address] [place] [address] Performed By: #### 5 7021-8 ####[facility]ORATORYCLIA [id number] [address] Neutrophils/100 WBC (Bld) 78.0 % Normal [facility] Comment on above: Order Comment: Speci men Type: BLOOD SPECIMENOrdering Facility: [facility] Address: [address] [place] [address] Performed By: #### 5 7021-8 ####[facility]ORATORYCLIA [id number] [address] [place] Nucleated RBC (Bld) [#/Vol] 10*3/uL Normal <0.01 [facility] Comment on above: Order Comment: Speci men Type: BLOOD SPECIMENOrdering Facility: [facility] Address: [address] [place] [address] Performed By: #### 5 7021-8 ####[facility]ORATORYCLIA [id number] [address] Nucleated RBC/100 WBC (Bld) [Ratio] 0.0 /100 WBC Normal [facility] Comment on above: Order Comment: Speci men Type: BLOOD SPECIMENOrdering Facility: [facility] Address: [address] [place] [address] Performed By: #### 5 7021-8 ####[facility]ORATORYCLIA [id number] [address] [place] Platelet mean volume (Bld) [Entitic vol] 10.4 fL Normal 9.0-12.7 [facility] Comment on above: Order Comment: Speci men Type: BLOOD SPECIMENOrdering Facility: [facility] Address: [address] [place] [address] Performed By: #### 5 7021-8 ####[facility]ORATORYCLIA [id number] [place] [address] [place] Platelets (Bld) [#/Vol] 396 10*3/uL Normal 150-400 [facility] Comment on above: Order Comment: Speci men Type: BLOOD SPECIMENOrdering Facility: [facility] Address: [address] [place] [address] Performed By: #### 5 7021-8 ####[facility]ORATORYCLIA [id number] [place] [address] [place] RBC (Bld) [#/Vol] 3.57 10*6/uL Low 4.20-6.00 [facility] Comment on above: Order Comment: Speci men Type: BLOOD SPECIMENOrdering Facility: [facility] Address: [address] [place] [address] Performed By: #### 5 7021-8 ####[facility]ORATORYCLIA [id number] [address] STATES [place] [facility] WBC (Bld) [#/Vol] 14.87 10*3/uL High 3.70-11.00 [facility] Comment on above: Order Comment: Speci men Type: BLOOD SPECIMENOrdering Facility: [facility] Address: [address] [place] [address] Performed By: #### 5 7021-8 ####[facility]ORATORYCLIA [id number] [address] OF [facility] Gas and Carbon monoxide pane l (BldV)on 07-21-2021 Base excess Calc (BldV) [Moles/Vol] 7 mmol/L High 0-2 [facility] Comment on above: Order Comment: Speci men Type: VENOUS BLOOD SPECIMENOrdering Facility: [facility] Address: [address] [place] [address] Performed By: #### 2 4344-4 ####[facility]ORATORYCLIA [id number] [address] Body temperature 98.6 [degF] Normal [facility] Comment on above: Order Comment: Speci men Type: VENOUS BLOOD SPECIMENOrdering Facility: [facility] Address: [address] [place] [address] Performed By: #### 2 4344-4 ####[facility]ORATORYCLIA [id number] [place] [address] [place] CALCIUM IONIZED, PH CORRECTED 1.21 mmol/L Normal 1.08-1.30 [facility] Comment on above: Order Comment: Speci men Type: VENOUS BLOOD SPECIMENOrdering Facility: [facility] Address: [address] [place] [address] Performed By: #### 2 4344-4 ####[facility]ORATORYCLIA [id number] [place] [address] [place] Calcium.ionized (BldV) [Mass/Vol] 1.23 mmol/L Normal 1.08-1.30 [facility] Comment on above: Order Comment: Speci men Type: VENOUS BLOOD SPECIMENOrdering Facility: [facility] Address: [address] [place] [address] Performed By: #### 2 4344-4 ####[facility]ORATORYCLIA [id number] [place] [address] [place] Carboxyhemoglobin (BldV) [Mass fraction] 2.3 % High 0.0-2.0 [facility] Comment on above: Order Comment: Speci men Type: VENOUS BLOOD SPECIMENOrdering Facility: [facility] Address: [address] [place] [address] Result Comment: Carb oxyhemoglobin Reference Range for Smokers: 2.0-8.0% Performed By: #### 2 4344-4 ####[facility]ORATORYCLIA [id number] [address] [place] CO2 (BldV) [Partial pressure] 58 mm[Hg] High 42-55 [facility] Comment on above: Order Comment: Speci men Type: VENOUS BLOOD SPECIMENOrdering Facility: [facility] Address: [address] [place] [address] Performed By: #### 2 4344-4 ####[facility]ORATORYCLIA [id number] [place] [address] [place] CO2 [Moles/Vol] 31 mmol/L High 25-29 [facility] Comment on above: Order Comment: Speci men Type: VENOUS BLOOD SPECIMENOrdering Facility: [facility] Address: [address] [place] [address] Performed By: #### 2 4344-4 ####[facility]ORATORYCLIA [id number] [place] [address] [place] Glucose [Mass/Vol] 146 mg/dL High 60-105 [facility] Comment on above: Order Comment: Speci men Type: VENOUS BLOOD SPECIMENOrdering Facility: [facility] Address: [address] [place] [address] Performed By: #### 2 4344-4 ####[facility]ORATORYCLIA [id number] [place] [address] [place] HCO3 (Bld) [Moles/Vol] 33 mmol/L High 24-28 [facility] Comment on above: Order Comment: Speci men Type: VENOUS BLOOD SPECIMENOrdering Facility: [facility] Address: [address] [place] [address] Performed By: #### 2 4344-4 ####[facility]ORATORYCLIA [id number] [place] [address] [place] Hematocrit (Bld) [Volume fraction] 30.1 % Low 39.0-51.0 [facility] Comment on above: Order Comment: Speci men Type: VENOUS BLOOD SPECIMENOrdering Facility: [facility] Address: [address] [place] [address] Performed By: #### 2 4344-4 ####[facility]ORATORYCLIA [id number] [place] [address] [place] Hemoglobin (Bld) [Mass/Vol] 9.7 g/dL Low 13.0-17.0 [facility] Comment on above: Order Comment: Speci men Type: VENOUS BLOOD SPECIMENOrdering Facility: [facility] Address: [address] [place] [address] Performed By: #### 2 4344-4 ####[facility] LABORATORYCLIA [id number] [place] [id number] [place] Methemoglobin (Bld) [Mass fraction] % Normal 0.0-1.5 [facility] Comment on above: Order Comment: Speci men Type: VENOUS BLOOD SPECIMENOrdering Facility: [facility] Address: [address] [place] [address] Performed By: #### 2 4344-4 ####[facility]ATORYCLIA [id number] [address] [place] O2 THERAPY NC = Nasal Cannula Normal [facility] Comment on above: Order Comment: Speci men Type: VENOUS BLOOD SPECIMENOrdering Facility: [facility] Address: [address] [place] [address] Performed By: #### 2 4344-4 ####[facility]ORATORYCLIA [id number] [address] [place] Oxygen (BldV) [Partial pressure] 64 mm[Hg] High 35-45 [facility] Comment on above: Order Comment: Speci men Type: VENOUS BLOOD SPECIMENOrdering Facility: [facility] Address: [address] [place] [address] Performed By: #### 2 4344-4 ####[facility]ORATORYCLIA [id number] [address] [place] Oxygen saturation in Blood 90 % High 60-85 [facility] Comment on above: Order Comment: Speci men Type: VENOUS BLOOD SPECIMENOrdering Facility: [facility] Address: [address] [place] [address] Performed By: #### 2 4344-4 ####[facility]ORATORYCLIA [id number] [address] [place] Oxyhemoglobin (BldV) [Mass fraction] 87 % High 60-85 [facility] Comment on above: Order Comment: Speci men Type: VENOUS BLOOD SPECIMENOrdering Facility: [facility] Address: [address] [place] [address] Performed By: #### 2 4344-4 ####[facility]ORATORYCLIA [id number] [place] [address] [place] pH (BldV) 7.38 [pH] Normal 7.32-7.42 [facility] Comment on above: Order Comment: Speci men Type: VENOUS BLOOD SPECIMENOrdering Facility: [facility] Address: [address] [place] [address] Performed By: #### 2 4344-4 ####[facility]ORATORYCLIA [id number] [address] [place] Potassium [Moles/Vol] 3.8 mmol/L Normal 3.5-5.0 [facility] Comment on above: Order Comment: Speci men Type: VENOUS BLOOD SPECIMENOrdering Facility: [facility] Address: [address] [place] [address] Performed By: #### 2 4344-4 ####[facility] LABORATORYCLIA [id number] [address] [place] Sodium [Moles/Vol] 145 mmol/L High 136-144 [facility] Comment on above: Order Comment: Speci men Type: VENOUS BLOOD SPECIMENOrdering Facility: [facility] Address: [address] [place] [address] Performed By: #### 2 4344-4 ####[facility] LABORATORYCLIA [id number] [address] [place] Base excess Calc (BldV) [Moles/Vol] 8 mmol/L High 0-2 [facility] Comment on above: Order Comment: Speci men Type: VENOUS BLOOD SPECIMENOrdering Facility: [facility] Address: [address] [place] [address] Performed By: #### 2 4344-4 ####[facility] LABORATORYCLIA [id number] [address] [place] Body temperature 100.22 [degF] Normal [facility] Comment on above: Order Comment: Speci men Type: VENOUS BLOOD SPECIMENOrdering Facility: [facility] Address: [address] [place] [address] Performed By: #### 2 4344-4 ####[facility] LABORATORYCLIA [id number] [address] STATES OF [facility] CALCIUM IONIZED, PH CORRECTED 1.25 mmol/L Normal 1.08-1.30 [facility] Comment on above: Order Comment: Speci men Type: VENOUS BLOOD SPECIMENOrdering Facility: [facility] Address: [address] [place] [address] Performed By: #### 2 4344-4 ####[facility] LABORATORYCLIA [id number] [address] Calcium.ionized (BldV) [Mass/Vol] 1.24 mmol/L Normal 1.08-1.30 [facility] Comment on above: Order Comment: Speci men Type: VENOUS BLOOD SPECIMENOrdering Facility: [facility] Address: [address] [place] [address] Performed By: #### 2 4344-4 ####[facility] LABORATORYCLIA [id number] [address] [place] Carboxyhemoglobin (BldV) [Mass fraction] 2.5 % High 0.0-2.0 [facility] Comment on above: Order Comment: Speci men Type: VENOUS BLOOD SPECIMENOrdering Facility: [facility] Address: [address] [place] [address] Result Comment: Carb oxyhemoglobin Reference Range for Smokers: 2.0-8.0% Performed By: #### 2 4344-4 ####[facility] LABORATORYCLIA [id number] [address] [place] CO2 (BldV) [Partial pressure] 53 mm[Hg] Normal 42-55 [facility] Comment on above: Order Comment: Speci men Type: VENOUS BLOOD SPECIMENOrdering Facility: [facility] Address: [address] [place] [address] Performed By: #### 2 4344-4 ####[facility] LABORATORYCLIA [id number] [address] [place] CO2 [Moles/Vol] 31 mmol/L High 25-29 [facility] Comment on above: Order Comment: Speci men Type: VENOUS BLOOD SPECIMENOrdering Facility: [facility] Address: [address] [place] [address] Performed By: #### 2 4344-4 ####[facility] LABORATORYCLIA [id number] [address] [place] CO2 adjusted to patient's actual temperature (BldV) [Partial pressure] 56 mmHg High 42-55 [facility] Comment on above: Order Comment: Speci men Type: VENOUS BLOOD SPECIMENOrdering Facility: [facility] Address: [address] [place] [address] Performed By: #### 2 4344-4 ####[facility] LABORATORYCLIA [id number] [address] [place] Glucose [Mass/Vol] 131 mg/dL High 60-105 [facility] Comment on above: Order Comment: Speci men Type: VENOUS BLOOD SPECIMENOrdering Facility: [facility] Address: [address] [place] [address] Performed By: #### 2 4344-4 ####[facility] LABORATORYCLIA [id number] [place] [address] [place] HCO3 (Bld) [Moles/Vol] 33 mmol/L High 24-28 [facility] Comment on above: Order Comment: Speci men Type: VENOUS BLOOD SPECIMENOrdering Facility: [facility] Address: [address] [place] [address] Performed By: #### 2 4344-4 ####[facility] LABORATORYCLIA [id number] [place] [address] [place] Hematocrit (Bld) [Volume fraction] 30.8 % Low 39.0-51.0 [facility] Comment on above: Order Comment: Speci men Type: VENOUS BLOOD SPECIMENOrdering Facility: [facility] Address: [address] [place] [address] Performed By: #### 2 4344-4 ####[facility] LABORATORYCLIA [id number] [address] OF [facility] Hemoglobin (Bld) [Mass/Vol] 10.0 g/dL Low 13.0-17.0 [facility] Comment on above: Order Comment: Speci men Type: VENOUS BLOOD SPECIMENOrdering Facility: [facility] Address: [address] [place] [address] Performed By: #### 2 4344-4 ####[facility] LABORATORYCLIA [id number] [address] Methemoglobin (Bld) [Mass fraction] % Normal 0.0-1.5 [facility] Comment on above: Order Comment: Speci men Type: VENOUS BLOOD SPECIMENOrdering Facility: [facility] Address: [address] [place] [address] Performed By: #### 2 4344-4 ####[facility] LABORATORYCLIA [id number] [address] O2 THERAPY NC = Nasal Cannula Normal [facility] Comment on above: Order Comment: Speci men Type: VENOUS BLOOD SPECIMENOrdering Facility: [facility] Address: [address] [place] [address] Performed By: #### 2 4344-4 ####[facility] LABORATORYCLIA [id number] [address] Oxygen (BldV) [Partial pressure] 58 mm[Hg] High 35-45 [facility] Comment on above: Order Comment: Speci men Type: VENOUS BLOOD SPECIMENOrdering Facility: [facility] Address: [address] [place] [address] Performed By: #### 2 4344-4 ####[facility] LABORATORYCLIA [id number] [place] [address] [place] Oxygen adjusted to patient's actual temperature (BldV) [Partial pressure] 61 mmHg High 35-45 [facility] Comment on above: Order Comment: Speci men Type: VENOUS BLOOD SPECIMENOrdering Facility: [facility] Address: [address] [address] Performed By: #### 2 4344-4 ####[facility] LABORATORYCLIA [id number] [address] [place] Oxygen saturation in Blood 88 % High 60-85 [facility] Comment on above: Order Comment: Speci men Type: VENOUS BLOOD SPECIMENOrdering Facility: [facility] Address: [address] [place] [address] Performed By: #### 2 4344-4 ####[facility] LABORATORYCLIA [id number] [address] Oxyhemoglobin (BldV) [Mass fraction] 85 % Normal 60-85 [facility] Comment on above: Order Comment: Speci men Type: VENOUS BLOOD SPECIMENOrdering Facility: [facility] Address: [address] [address] Performed By: #### 2 4344-4 ####[facility] LABORATORYCLIA [id number] [address] [place] pH (BldV) 7.41 [pH] Normal 7.32-7.42 [facility] Comment on above: Order Comment: Speci men Type: VENOUS BLOOD SPECIMENOrdering Facility: [facility] Address: [address] [address] Performed By: #### 2 4344-4 ####[facility] LABORATORYCLIA [id number] [address] STATES [facility] pH adjusted to patient's actual temperature (BldV) 7.40 Normal 7.32-7.42 [facility] Comment on above: Order Comment: Speci men Type: VENOUS BLOOD SPECIMENOrdering Facility: [facility] Address: [address] [address] Performed By: #### 2 4344-4 ####[facility] LABORATORYCLIA [id number] [address] [place] Potassium [Moles/Vol] 4.0 mmol/L Normal 3.5-5.0 [facility] Comment on above: Order Comment: Speci men Type: VENOUS BLOOD SPECIMENOrdering Facility: [facility] Address: [address] [place] [address] Performed By: #### 2 4344-4 ####[facility] LABORATORYCLIA [id number] [address] [place] [facility] Sodium [Moles/Vol] 146 mmol/L High 136-144 [facility] Comment on above: Order Comment: Speci men Type: VENOUS BLOOD SPECIMENOrdering Facility: [facility] Address: [address] [place] [address] Performed By: #### 2 4344-4 ####[facility] LABORATORYCLIA [id number] [address] [place] Magnesium SerPl-ncon 07-21 Magnesium [Mass/Vol] 2.5 mg/dL High 1.7-2.3 [facility] Comment on above: Order Comment: Speci men Type: BLOOD SPECIMENOrdering Facility: [facility] Address: [address] [place] [address] Performed By: #### 1 9123-9, 2777-1, 87099-1 ####[facility] LABORATORYCLIA [id number] [address] [place] NURSING PROGon 07-21-2021 NURSING PROG Normal [facility] Phosphate SerPl-mCncon 07-21 Phosphate [Mass/Vol] 3.7 mg/dL Normal 2.7-4.8 [facility] Comment on above: Order Comment: Speci men Type: BLOOD SPECIMENOrdering Facility: [facility] Address: [address] [place] [address] Performed By: #### 1 9123-9, 2777-1, 69659-3 ####[facility] LABORATORYCLIA [id number] [place] [address] [facility] [place] THERAPY NTon 07-21-2021 THERAPY NT Normal [facility] XR CHEST 1V FRONTALon 2021 XR CHEST 1V FRONTAL Normal [facility] aPTT PPPon 07-21-2021 aPTT Coag (PPP) [Time] 53.0 s High 23.0-32.4 [facility] Comment on above: Order Comment: Speci men Type: BLOOD SPECIMENOrdering Facility: [facility] Address: [address] [place] [address] Performed By: #### 1 4979-9 ####[facility] LABORATORYCLIA [id number] [address] [place] ALLIED HEALTHon 07-20-2021 ALLIED HEALTH Normal [facility] Basic metabolic 2000 panelon 07-20-2021 Anion gap [Moles/Vol] 8 mmol/L Low 9-18 [facility] Comment on above: Order Comment: Speci men Type: BLOOD SPECIMENOrdering Facility: [facility] Address: [address] [place] [address] Performed By: #### 2 4321-2, 22820-1, 2777-1 ####[facility] [id number] [place] [address] [place] Calcium [Mass/Vol] 9.7 mg/dL Normal 8.5-10.2 [facility] Comment on above: Order Comment: Speci men Type: BLOOD SPECIMENOrdering Facility: [facility] Address: [address] [place] [address] Performed By: #### 2 4321-2, 60130-1, 2777-1 ####[facility] LABORATORYCLIA [id number] [place] [address] [place] Chloride [Moles/Vol] 104 mmol/L Normal 97-105 [facility] Comment on above: Order Comment: Speci men Type: BLOOD SPECIMENOrdering Facility: [facility] Address: [address] [place] [address] Performed By: #### 2 4321-2, , 2776-05 ####[facility] LABORATORYCLIA [id number] [place] [address] [place] CO2 [Moles/Vol] 34 mmol/L High 22-30 [facility] Comment on above: Order Comment: Speci men Type: BLOOD SPECIMENOrdering Facility: [facility] Address: [address] [place] [address] Performed By: #### 2 4321-2, , 2776-05 ####[facility] LABORATORYCLIA [id number] [place], [place] [address] [place] [address] [place] [facility] Creatinine [Mass/Vol] 0.76 mg/dL Normal 0.73-1.22 [facility] Comment on above: Order Comment: Speci men Type: BLOOD SPECIMENOrdering Facility: [facility] Address: [address] [place] [address] Performed By: #### 2 4321-2, , 2776-05 ####[facility]ITAL[facility]IA [id number] [address] ESTIMATED GLOMERULAR FILTRATION RATE 97 mL/min/1.73m??? Normal >=60 [facility] Comment on above: Order Comment: Speci men Type: BLOOD SPECIMENOrdering Facility: [facility] Address: [address] [place] [address] Result Comment: Luzmaria mated Glomerular Filtration Rate [...] 4321-2, , 2776-05 ####[facility] LABORATORYCLIA [id number] [place] [address] [place] Glucose [Mass/Vol] 123 mg/dL High 74-99 [facility] Comment on above: Order Comment: Shira feldman Type: BLOOD SPECIMENOrdering Facility: [facility] Address: [address] [place], [place] [address] Result Comment: The [place] [employer] (ADA) provides guidance for cutoff [...] Standards of Medical Care in Diabetes 2016, [place] [employer]. Diabetes Care. 2016.39(Suppl 1). Performed By: #### 2 4321-2, , 2776-05 ####[facility] LABORATORYCLIA [id number] [place] [address] [place] Potassium [Moles/Vol] 4.4 mmol/L Normal 3.7-5.1 [facility] Comment on above: Order Comment: Shira feldman Type: BLOOD SPECIMENOrdering Facility: [facility] Address: [address] [place], [place] [address] Performed By: #### 2 4321-2, , 2776-05 ####[facility] LABORATORYCLIA [id number] [place] [address] [place] Sodium [Moles/Vol] 146 mmol/L High 136-144 [facility] Comment on above: Order Comment: Shira feldman Type: BLOOD SPECIMENOrdering Facility: [facility] Address: [address] [place], [place] [address] Performed By: #### 2 4321-2, , 2776-05 ####[facility] LABORATORYCLIA [id number] [place] [address] [place] Urea nitrogen [Mass/Vol] 38 mg/dL High 9-24 [facility] Comment on above: Order Comment: Speci men Type: BLOOD SPECIMENOrdering Facility: [facility] Address: [address] [place] [address] Performed By: #### 2 4321-2, 41020-2, 2777-1 ####[facility] LABORATORYCLIA [id number] [address] [place] CASE MANAGEMon 07-20-2021 CASE MANAGEM Normal [facility] CBC W Auto Differential pane l (Bld)on 07-20-2021 Basophils (Bld) [#/Vol] 0.05 10*3/uL Normal <0.11 [facility] Comment on above: Order Comment: Speci men Type: BLOOD SPECIMENOrdering Facility: [facility] Address: [address] [place] [address] Performed By: #### 5 7021-8 ####[facility] LABORATORYCLIA [id number] [address] [place] Basophils/100 WBC (Bld) 0.5 % Normal [facility] Comment on above: Order Comment: Speci men Type: BLOOD SPECIMENOrdering Facility: [facility] Address: [address] [place] [address] Performed By: #### 5 7021-8 ####[facility] LABORATORYCLIA [id number] [address] [place] Differential cell count method Nom (Bld) Auto Normal [facility] Comment on above: Order Comment: Speci men Type: BLOOD SPECIMENOrdering Facility: [facility] Address: [address] [place] [address] Performed By: #### 5 7021-8 ####[facility] LABORATORYCLIA [id number] [place] [address] [place] Eosinophils (Bld) [#/Vol] 0.43 10*3/uL Normal <0.46 [facility] Comment on above: Order Comment: Speci men Type: BLOOD SPECIMENOrdering Facility: [facility] Address: [address] [place], [place] [address] Performed By: #### 5 7021-8 ####[facility] LABORATORYCLIA [id number] [address] [place] Eosinophils/100 WBC (Bld) 4.1 % Normal [facility] Comment on above: Order Comment: Speci men Type: BLOOD SPECIMENOrdering Facility: [facility] Address: [address] [place] [address] Performed By: #### 5 7021-8 ####[facility] LABORATORYCLIA [id number] [address] [place] Erythrocyte distribution width (RBC) [Ratio] 16.7 % High 11.5-15.0 [facility] Comment on above: Order Comment: Speci men Type: BLOOD SPECIMENOrdering Facility: [facility] Address: [address] [place] [address] Performed By: #### 5 7021-8 ####[facility] LABORATORYCLIA [id number] [address] Hematocrit (Bld) [Volume fraction] 33.0 % Low 39.0-51.0 [facility] Comment on above: Order Comment: Speci men Type: BLOOD SPECIMENOrdering Facility: [facility] Address: [address] [place] [address] Performed By: #### 5 7021-8 ####[facility] LABORATORYCLIA [id number] [address] [place] Hemoglobin (Bld) [Mass/Vol] 9.7 g/dL Low 13.0-17.0 [facility] Comment on above: Order Comment: Speci men Type: BLOOD SPECIMENOrdering Facility: [facility] Address: [address] [place] [address] Performed By: #### 5 7021-8 ####[facility] LABORATORYCLIA [id number] [address] [place] IMMATURE GRAN % 0.4 % Normal [facility] Comment on above: Order Comment: Speci men Type: BLOOD SPECIMENOrdering Facility: [facility] Address: [address] [place] [address] Performed By: #### 5 7021-8 ####[facility] LABORATORYCLIA [id number] [address] IMMATURE GRAN ABS 0.04 k/uL Normal <0.10 [facility] Comment on above: Order Comment: Speci men Type: BLOOD SPECIMENOrdering Facility: [facility] Address: [address] [place] [address] Performed By: #### 5 7021-8 ####[facility] LABORATORYCLIA [id number] [address] Lymphocytes (Bld) [#/Vol] 1.99 10*3/uL Normal 1.00-4.00 [facility] Comment on above: Order Comment: Speci men Type: BLOOD SPECIMENOrdering Facility: [facility] Address: [address] [place] [address] Performed By: #### 5 7021-8 ####[facility] LABORATORYCLIA [id number] [address] Lymphocytes/100 WBC (Bld) 18.8 % Normal [facility] Comment on above: Order Comment: Speci men Type: BLOOD SPECIMENOrdering Facility: [facility] Address: [address] [place] [address] Performed By: #### 5 7021-8 ####[facility] LABORATORYCLIA [id number] [address] MCH (RBC) [Entitic mass] 27.8 pg Normal 26.0-34.0 [facility] Comment on above: Order Comment: Speci men Type: BLOOD SPECIMENOrdering Facility: [facility] Address: [address] [place] [address] Performed By: #### 5 7021-8 ####[facility] LABORATORYCLIA [id number] [address] MCHC (RBC) [Mass/Vol] 29.4 g/dL Low 30.5-36.0 [facility] Comment on above: Order Comment: Speci men Type: BLOOD SPECIMENOrdering Facility: [facility] Address: [address] [place] [address] Performed By: #### 5 7021-8 ####[facility] LABORATORYCLIA [id number] [address] [place] MCV (RBC) [Entitic vol] 94.6 fL Normal 80.0-100.0 [facility] Comment on above: Order Comment: Speci men Type: BLOOD SPECIMENOrdering Facility: [facility] Address: [address] [place] [address] Performed By: #### 5 7021-8 ####[facility] LABORATORYCLIA [id number] [address] [place] Monocytes (Bld) [#/Vol] 0.82 10*3/uL Normal <0.87 [facility] Comment on above: Order Comment: Speci men Type: BLOOD SPECIMENOrdering Facility: [facility] Address: [address] [place] [address] Performed By: #### 5 7021-8 ####[facility] LABORATORYCLIA [id number] [address] [place] Monocytes/100 WBC (Bld) 7.8 % Normal [facility] Comment on above: Order Comment: Speci men Type: BLOOD SPECIMENOrdering Facility: [facility] Address: [address] [place] [address] Performed By: #### 5 7021-8 ####[facility] LABORATORYCLIA [id number] [address] [place] Neutrophils (Bld) [#/Vol] 7.23 10*3/uL Normal 1.45-7.50 [facility] Comment on above: Order Comment: Speci men Type: BLOOD SPECIMENOrdering Facility: [facility] Address: [address] [place] [address] Performed By: #### 5 7021-8 ####[facility] LABORATORYCLIA [id number] [address] Neutrophils/100 WBC (Bld) 68.4 % Normal [facility] Comment on above: Order Comment: Speci men Type: BLOOD SPECIMENOrdering Facility: [facility] Address: [address] [place] [address] Performed By: #### 5 7021-8 ####[facility] LABORATORYCLIA [id number] [address] [place] Nucleated RBC (Bld) [#/Vol] 10*3/uL Normal <0.01 [facility] Comment on above: Order Comment: Speci men Type: BLOOD SPECIMENOrdering Facility: [facility] Address: [address] [place] [address] Performed By: #### 5 7021-8 ####[facility] LABORATORYCLIA [id number] [address] Nucleated RBC/100 WBC (Bld) [Ratio] 0.0 /100 WBC Normal [facility] Comment on above: Order Comment: Speci men Type: BLOOD SPECIMENOrdering Facility: [facility] Address: [address] [place] [address] Performed By: #### 5 7021-8 ####[facility] LABORATORYCLIA [id number] [address] [place] Platelet mean volume (Bld) [Entitic vol] 10.5 fL Normal 9.0-12.7 [facility] Comment on above: Order Comment: Speci men Type: BLOOD SPECIMENOrdering Facility: [facility] Address: [address] [place] [address] Performed By: #### 5 7021-8 ####[facility] LABORATORYCLIA [id number] [address] [place] Platelets (Bld) [#/Vol] 400 10*3/uL Normal 150-400 [facility] Comment on above: Order Comment: Speci men Type: BLOOD SPECIMENOrdering Facility: [facility] Address: [address] [place] [address] Performed By: #### 5 7021-8 ####[facility] LABORATORYCLIA [id number] [address] RBC (Bld) [#/Vol] 3.49 10*6/uL Low 4.20-6.00 [facility] Comment on above: Order Comment: Speci men Type: BLOOD SPECIMENOrdering Facility: [facility] Address: [address] [place] [address] Performed By: #### 5 7021-8 ####[facility] LABORATORYCLIA [id number] [address] WBC (Bld) [#/Vol] 10.56 10*3/uL Normal 3.70-11.00 [facility] Comment on above: Order Comment: Speci men Type: BLOOD SPECIMENOrdering Facility: [facility] Address: [address] [place] [address] Performed By: #### 5 7021-8 ####[facility] LABORATORYCLIA [id number] [address] CONSULT PROGon 07-20-2021 CONSULT PROG Normal [facility] CT BRAIN WO IVCONon 07-21-[address] BRAIN WO IVCON Normal [facility] Enterprisel-ncon 07-20 Magnesium [Mass/Vol] 2.4 mg/dL High 1.7-2.3 [facility] Comment on above: Order Comment: Speci men Type: BLOOD SPECIMENOrdering Facility: [facility] Address: [address] [place] [address] Performed By: #### 2 4321-2, 35301-7, 2777-1 ####[facility]ATORYCLIA [id number] [address] [place] NUTRITIONon 07-20-2021 NUTRITION Normal [facility] Phosphate SerPl-mCncon 07-20 Phosphate [Mass/Vol] 4.1 mg/dL Normal 2.7-4.8 [facility] Comment on above: Order Comment: Speci men Type: BLOOD SPECIMENOrdering Facility: [facility] Address: [address] [place] [address] Performed By: #### 2 4321-2, 80318-1, 2777-1 ####[facility] LABORATORYCLIA [id number] [place] [address] [place] aPTT PPPon 07-20-2021 aPTT Coag (PPP) [Time] 53.6 s High 23.0-32.4 [facility] Comment on above: Order Comment: Speci men Type: BLOOD SPECIMENOrdering Facility: [facility] [facility] Address: [address] [place] [address] Performed By: #### 1 4979-9 ####[facility]ATORYCLIA [id number] [address] [place] Bacteria CSF Culton 07-20-19 22 Bacteria identified Cx Nom (CSF) CULTURE, CSF: No growth 14 days GRAM STAIN: No organisms seen No Polymorphonuclear Leukocytes Rare Mononuclear cells Gram stain performed on cytospun specimen. Normal [facility] Comment on above: Performed By: #### 6 06-4 ####[facility]ATORYCLIA [id number] [place] [address] [place] CONSULT PROGon 07-19-2021 CONSULT PROG Normal [facility] CSF MANUAL DIFFon 07-19-2021 DIF TTL, CSF 100 cells counted Normal [facility] Comment on above: Order Comment: Speci men Type: CEREBROSPINAL FLUIDOrdering Facility: [facility] Address: [address] [place] [address] Performed By: #### L [id number], 76242-5, [id number] ####[facility]ATORYCLIA [id number] [place] [address] [place] EOSIN%, CSF 1 % Normal [facility] Comment on above: Order Comment: Speci men Type: CEREBROSPINAL FLUIDOrdering Facility: [facility] Address: [address] [address] Performed By: #### L [id number], 43005-8, [id number] ####[facility]ATORYCLIA [id number] [place] [address] [place] LYMPH%, CSF 67 % Normal 50-90 [facility] Comment on above: Order Comment: Speci men Type: CEREBROSPINAL FLUIDOrdering Facility: [facility] Address: [address] [place] [address] Performed By: #### L [id number], 95053-2, [id number] ####[facility]ORYCLIA [id number] [address] [place] MACRO%, CSF 1 % High <1 [facility] Comment on above: Order Comment: Speci men Type: CEREBROSPINAL FLUIDOrdering Facility: [facility] Address: [address] [place] [address] Performed By: #### L [id number], 33166-1, [id number] ####[facility]ORYCLIA [id number] [place] [address] [place] MONO%, CSF 18 % Normal 10-50 [facility] Comment on above: Order Comment: Speci men Type: CEREBROSPINAL FLUIDOrdering Facility: [facility] Address: [address] [place] [address] Performed By: #### L [id number], 47183-6, [id number] ####[facility]ORYCLIA [id number] [place] [address] [place] NEUT%, CSF 11 % High 0-3 [facility] Comment on above: Order Comment: Speci men Type: CEREBROSPINAL FLUIDOrdering Facility: [facility] Address: [address] [place] [address] Performed By: #### L [id number], 11770-4, [id number] ####[facility]ORYCLIA [id number] [address] [place] OTHER CL%, CSF 2 % Normal [facility] Comment on above: Order Comment: Speci men Type: CEREBROSPINAL FLUIDOrdering Facility: [facility] Address: [address] [place] [address] Result Comment: Path review to follow. Performed By: #### L [id number], 75283-8, [id number] ####[facility]ATORYCLIA [id number] [address] CSF PATHOLOGIST INTERP (LAB REFLEX ORDER-NO BILL)on 07-19-2021 CSF STAFF REVIEW Normal [facility] Comment on above: Order Comment: Speci men Type: CEREBROSPINAL FLUIDOrdering Facility: [facility] Address: [address] [place] [address] Performed By: #### L [id number], 84428-3, [id number] ####[facility]ATORYCLIA [id number] [address] Pathologist name Reviewed by Wing Cummings MD [facility] Comment on above: Order Comment: Speci men Type: CEREBROSPINAL FLUIDOrdering Facility: [facility] Address: [address] [place] [address] Performed By: #### L CA5078, 93316-2, [id number] ####[facility]ORYCLIA [id number] [address] Cell count panel (CSF)on Clarity (CSF) Clear Normal Clear [facility] Comment on above: Order Comment: Speci men Type: CEREBROSPINAL FLUIDOrdering Facility: [facility] Address: [address] [place] [address] Performed By: #### L CM6174, 73349-2, [id number] ####[facility]ATORYCLIA [id number] [address] Clarity (Unsp spec) Not Indicated Normal Clear [facility] Comment on above: Order Comment: Speci men Type: CEREBROSPINAL FLUIDOrdering Facility: [facility] Address: [address] [place] [address] Performed By: #### L NV6862, 01463-9, [id number] ####[facility]ORYCLIA [id number] [address] [facility] Color (CSF) Colorless Normal Colorless [facility] Comment on above: Order Comment: Speci men Type: CEREBROSPINAL FLUIDOrdering Facility: [facility] Address: [address] [place] [address] Performed By: #### L SE5695, 24576-2, [id number] ####[facility]ORYCLIA [id number] [address] [place] Color (Spun CSF) Not Indicated Normal Colorless [facility] Comment on above: Order Comment: Speci men Type: CEREBROSPINAL FLUIDOrdering Facility: [facility] Address: [address] [place] [address] Performed By: #### L [id number], 99170-6, [id number] ####[facility]ATORYCLIA [id number] [address] [facility] CSF TUBE NUMBER [employer] Normal [facility] Comment on above: Order Comment: Speci men Type: CEREBROSPINAL FLUIDOrdering Facility: [facility] Address: [address] [place] [address] Performed By: #### L CP3403, 03085-3, [id number] ####[facility]ORYCLIA [id number] [address] [facility] RBC Manual cnt (CSF) [#/Vol] 0 cells/uL Normal 0-5 [facility] Comment on above: Order Comment: Speci men Type: CEREBROSPINAL FLUIDOrdering Facility: [facility] Address: [address] [place] [address] Performed By: #### L VO1911, 62649-7, [id number] ####[facility]ORYCLIA [id number] [address] WBC Manual cnt (CSF) [#/Vol] 2 cells/uL Normal 0-5 [facility] Comment on above: Order Comment: Speci men Type: CEREBROSPINAL FLUIDOrdering Facility: [facility] Address: [address] [place] [address] Performed By: #### L [id number], 10239-1, [id number] ####[facility]ATORYCLIA [id number] [place] [address] [place] Glucose CSF-mCncon Glucose (CSF) [Mass/Vol] 69 mg/dL Normal 40-70 [facility] Comment on above: Order Comment: Speci men Type: CEREBROSPINAL FLUIDOrdering Facility: [facility] Address: [address] [place] [address] Result Comment: Lumb ar CSF glucose values of healthy patients are approximately 60% of the plasma values and must always be compared with a concurrently measured plasma value for adequate clinical interpretation.References: 1. Glucose HK (GLUC3) [package insert V 12.0 [place]]. [employer], [place], [place]. September 2015. 2. Michelle Moore, Loki HGarfield (2015). Chapter 7: Glucose and Lactate. FGarfield Alcocer al.(eds.), Cerebrospinal Fluid in Clinical Neurology. [place]: [employer]. Performed By: #### 2 342-4, 2880-3 ####[facility]ORATORYCLIA [id number] [place] [address] [place] NURSING PROGon 07-19-2021 NURSING PROG Normal [facility] NURSING PROG Normal [facility] Prot CSF-mCncon 07-19-2021 Protein (CSF) [Mass/Vol] 51 mg/dL High 15-45 [facility] Comment on above: Order Comment: Speci men Type: CEREBROSPINAL FLUIDOrdering Facility: [facility] Address: [address] [place] [address] Performed By: #### 2 342-4, 2880-3 ####[facility]ATORYCLIA [id number] [address] [place] THERAPY NTon 07-19-2021 THERAPY NT Normal [facility] Urinalysis complete panel (U )on 07-19-2021 Bilirubin Ql (U) Negative Normal Negative [facility] Comment on above: Order Comment: Speci men Type: URINE SPECIMENOrdering Facility: [facility] Address: [address] [place] [address] Performed By: #### 2 4356-8 ####[facility]ATORYCLIA [id number] [address] [place] Clarity (Unsp spec) Clear Normal Clear [facility] Comment on above: Order Comment: Speci men Type: URINE SPECIMENOrdering Facility: [facility] Address: [address] [place] [address] Performed By: #### 2 4356-8 ####[facility]ATORYCLIA [id number] [address] STATES [facility] Color (U) Colorless Normal yellow [facility] Comment on above: Order Comment: Speci men Type: URINE SPECIMENOrdering Facility: [facility] Address: [address] [place] [address] Performed By: #### 2 4356-8 ####[facility]ATORYCLIA [id number] [address] [place] Glucose Test strip (U) [Mass/Vol] Negative Normal Negative [facility] Comment on above: Order Comment: Speci men Type: URINE SPECIMENOrdering Facility: [facility] Address: [address] [place] [address] Performed By: #### 2 4356-8 ####[facility]ATORYCLIA [id number] [address] Hemoglobin Ql (U) Trace Abnormal Negative [facility] Comment on above: Order Comment: Speci men Type: URINE SPECIMENOrdering Facility: [facility] Address: [address] [place] [address] Performed By: #### 2 4356-8 ####[facility]ATORYCLIA [id number] [address] [place] Hyaline casts (Urine sed) [#/Area] 1-3 /LPF Abnormal 0 /LPF [facility] Comment on above: Order Comment: Speci men Type: URINE SPECIMENOrdering Facility: [facility] Address: [address] [place] [address] Performed By: #### 2 4356-8 ####[facility]ATORYCLIA [id number] [address] [facility] Ketones Ql (U) Negative Normal Negative [facility] Comment on above: Order Comment: Speci men Type: URINE SPECIMENOrdering Facility: [facility] Address: [address] [place] [address] Performed By: #### 2 4356-8 ####[facility]ATORYCLIA [id number] [address] Leukocyte esterase Test strip Ql (U) Negative Normal Negative [facility] Comment on above: Order Comment: Speci men Type: URINE SPECIMENOrdering Facility: [facility] Address: [address] [place] [address] Performed By: #### 2 4356-8 ####[facility]ATORYCLIA [id number] [address] STATES [facility] Nitrite Ql (U) Negative Normal Negative [facility] Comment on above: Order Comment: Speci men Type: URINE SPECIMENOrdering Facility: [facility] Address: [address] [place] [address] Performed By: #### 2 4356-8 ####[facility]ORYCLIA [id number] [address] [place] pH (U) 7.0 [pH] Normal 5.0-8.0 [facility] Comment on above: Order Comment: Speci men Type: URINE SPECIMENOrdering Facility: [facility] Address: [address] [place] [address] Performed By: #### 2 4356-8 ####[facility]ATORYCLIA [id number] [address] [place] Protein (U) [Mass/Vol] Negative Normal Negative [facility] Comment on above: Order Comment: Speci men Type: URINE SPECIMENOrdering Facility: [facility] Address: [address] [place] [address] Performed By: #### 2 4356-8 ####[facility]ORYCLIA [id number] [address] RBC LM.HPF (Urine sed) [#/Area] 6-10 /HPF Abnormal 0-3 /HPF [facility] Comment on above: Order Comment: Speci men Type: URINE SPECIMENOrdering Facility: [facility] Address: [address] [place] [address] Performed By: #### 2 4356-8 ####[facility]ATORYCLIA [id number] [address] Specific gravity (U) [Rel density] 1.008 Normal 1.005-1.030 [facility] Comment on above: Order Comment: Speci men Type: URINE SPECIMENOrdering Facility: [facility] Address: [address] [place] [address] Performed By: #### 2 4356-8 ####[facility]ATORYCLIA [id number] [address] Urobilinogen Ql (U) Normal Normal Negative [facility] Comment on above: Order Comment: Speci men Type: URINE SPECIMENOrdering Facility: [facility] Address: [address] [place] [address] Performed By: #### 2 4356-8 ####[facility]ATORYCLIA [id number] [address] WBC LM.HPF (Urine sed) [#/Area] 0-5 /HPF Normal 0-5 /HPF [facility] Comment on above: Order Comment: Speci men Type: URINE SPECIMENOrdering Facility: [facility] Address: [address] [place] [address] Performed By: #### 2 4356-8 ####[facility]ATORYCLIA [id number] [address] Vancomycin random [Mass/Vol] on 07-19-2021 Vancomycin [Mass/Vol] 13.9 ug/mL Normal 10.0-20.0 [facility] Comment on above: Order Comment: Speci men Type: BLOOD SPECIMENOrdering Facility: [facility] Address: [address] [place] [address] Result Comment: Refe rence ranges and high/low indicator flags are provided as general guidelines only. The treating physician must determine appropriate target levels/dosing based on the specific clinical situation. Performed By: #### 4 091-5 ####[facility]ATORYCLIA [id number] [address] [place] aPTT PPPon 07-19-2021 aPTT Coag (PPP) [Time] 53.9 s High 23.0-32.4 [facility] Comment on above: Order Comment: Speci men Type: BLOOD SPECIMENOrdering Facility: [facility] Address: [address] [place] [address] Performed By: #### 1 4979-9 ####[facility]ATORYCLIA [id number] [place] [address] [place] Basic metabolic 2000 panelon 07-18-2021 Anion gap [Moles/Vol] 6 mmol/L Low 9-18 [facility] Comment on above: Order Comment: Speci men Type: BLOOD SPECIMENOrdering Facility: [facility] Address: [address] [place] [address] Performed By: #### 2 4321-2, , 2777-1 ####[facility]ATORYCLIA [id number] [place] [address] [place] Calcium [Mass/Vol] 9.4 mg/dL Normal 8.5-10.2 [facility] Comment on above: Order Comment: Speci men Type: BLOOD SPECIMENOrdering Facility: [facility] Address: [address] [place] [address] Performed By: #### 2 4321-2, , 2777-1 ####[facility]ATORYCLIA [id number] [address] [place] Chloride [Moles/Vol] 103 mmol/L Normal 97-105 [facility] Comment on above: Order Comment: Speci francia Type: BLOOD SPECIMENOrdering Facility: [facility] Address: [address] [place] [address] Performed By: #### 2 4321-2, 28096-1, 277-1 ####[facility]ATORYCLIA [id number] [address] [id number] [place] CO2 [Moles/Vol] 34 mmol/L High 22-30 [facility] Comment on above: Order Comment: Speci men Type: BLOOD SPECIMENOrdering Facility: [facility] Address: [address] [place] [address] Performed By: #### 2 4321-2, , 2776-05 ####[facility] [id number] [address] Creatinine [Mass/Vol] 0.75 mg/dL Normal 0.73-1.22 [facility] Comment on above: Order Comment: Speci men Type: BLOOD SPECIMENOrdering Facility: [facility] Address: [address] [place] [address] Performed By: #### 2 4321-2, , 2777 ####[facility]ATORYCLIA [id number] [address] ESTIMATED GLOMERULAR FILTRATION RATE 98 mL/min/1.73m??? Normal >=60 [facility] Comment on above: Order Comment: Speci men Type: BLOOD SPECIMENOrdering Facility: [facility] Address: [address] [place] [address] Result Comment: Luzmaria mated Glomerular Filtration Rate [...] By: #### 2 4321-2, , 2776-05 ####[facility]IA [id number] [place] [address] [place] Glucose [Mass/Vol] 125 mg/dL High 74-99 [facility] Comment on above: Order Comment: Shira feldman Type: BLOOD SPECIMENOrdering Facility: [facility] Address: [address] [place], [place] [phone] Result Comment: The [place] Diabetes Association (ADA) provides guidance for cutoff [...] Standards of Medical Care in Diabetes 2016, [place] [employer] Association. Diabetes Care. 2016.39(Suppl 1). Performed By: #### 2 4321-2, , 2776-05 ####[facility]ITALCLIA [id number] [place] [address] [place] Potassium [Moles/Vol] 4.4 mmol/L Normal 3.7-5.1 [facility] Comment on above: Order Comment: Shira feldman Type: BLOOD SPECIMENOrdering Facility: [facility] Address: [address] [id number] Performed By: #### 2 4321-2, , 2776-05 ####[facility]ORYCLIA [id number] [place] [address] [place] Sodium [Moles/Vol] 143 mmol/L Normal 136-144 [facility] Comment on above: Order Comment: Shira feldman Type: BLOOD SPECIMENOrdering Facility: [facility] Address: [address] [address] Performed By: #### 2 4321-2, 90157-1, 2777-1 ####[facility]ORYCLIA [id number] [place] [address] [place] Urea nitrogen [Mass/Vol] 33 mg/dL High 9-24 [facility] Comment on above: Order Comment: Speci men Type: BLOOD SPECIMENOrdering Facility: [facility] Address: [address] [place] [address] Performed By: #### 2 4321-2, , 2776-05 ####[facility]ORYCLIA [id number] [address] [place] CASE MANAGEMon 07-18-2021 CASE MANAGEM Normal [facility] CBC W Auto Differential pane l (Bld)on 07-18-2021 Basophils (Bld) [#/Vol] 0.05 10*3/uL Normal <0.11 [facility] Comment on above: Order Comment: Speci men Type: BLOOD SPECIMENOrdering Facility: [facility] Address: [address] [place] [address] Performed By: #### 5 7021-8 ####[facility]ORYCLIA [id number] [address] [place] Basophils/100 WBC (Bld) 0.5 % Normal [facility] Comment on above: Order Comment: Speci men Type: BLOOD SPECIMENOrdering Facility: [facility] Address: [address] [place] [address] Performed By: #### 5 7021-8 ####[facility]ORYCLIA [id number] [address] STATES [facility] Differential cell count method Nom (Bld) Auto Normal [facility] Comment on above: Order Comment: Speci men Type: BLOOD SPECIMENOrdering Facility: [facility] Address: [address] [place] [address] Performed By: #### 5 7021-8 ####[facility]ORYCLIA [id number] [address] [place] Eosinophils (Bld) [#/Vol] 0.44 10*3/uL Normal <0.46 [facility] Comment on above: Order Comment: Speci men Type: BLOOD SPECIMENOrdering Facility: [facility] Address: [address] [place] [address] Performed By: #### 5 7021-8 ####[facility]ORYCLIA [id number] [address] Eosinophils/100 WBC (Bld) 4.3 % Normal [facility] Comment on above: Order Comment: Speci men Type: BLOOD SPECIMENOrdering Facility: [facility] Address: [address] [place] [address] Performed By: #### 5 7021-8 ####[facility]ORYCLIA [id number] [address] Erythrocyte distribution width (RBC) [Ratio] 16.6 % High 11.5-15.0 [facility] Comment on above: Order Comment: Speci men Type: BLOOD SPECIMENOrdering Facility: [facility] Address: [address] [place] [address] Performed By: #### 5 7021-8 ####[facility]ORYCLIA [id number] [address] [place] Hematocrit (Bld) [Volume fraction] 32.2 % Low 39.0-51.0 [facility] Comment on above: Order Comment: Speci men Type: BLOOD SPECIMENOrdering Facility: [facility] Address: [address] [place] [address] Performed By: #### 5 7021-8 ####[facility]ORYCLIA [id number] [address] Hemoglobin (Bld) [Mass/Vol] 9.5 g/dL Low 13.0-17.0 [facility] Comment on above: Order Comment: Speci men Type: BLOOD SPECIMENOrdering Facility: [facility] Address: [address] [place] [address] Performed By: #### 5 7021-8 ####[facility]ORYCLIA [id number] [address] IMMATURE GRAN % 0.4 % Normal [facility] Comment on above: Order Comment: Speci men Type: BLOOD SPECIMENOrdering Facility: [facility] Address: [address] [place] [address] Performed By: #### 5 7021-8 ####[facility]ORYCLIA [id number] [address] IMMATURE GRAN ABS 0.04 k/uL Normal <0.10 [facility] Comment on above: Order Comment: Speci men Type: BLOOD SPECIMENOrdering Facility: [facility] Address: [address] [place] [address] Performed By: #### 5 7021-8 ####[facility]ORYCLIA [id number] [address] Lymphocytes (Bld) [#/Vol] 1.71 10*3/uL Normal 1.00-4.00 [facility] Comment on above: Order Comment: Speci men Type: BLOOD SPECIMENOrdering Facility: [facility] Address: [address] [place] [address] Performed By: #### 5 7021-8 ####[facility]ORYCLIA [id number] [address] Lymphocytes/100 WBC (Bld) 16.9 % Normal [facility] Comment on above: Order Comment: Speci men Type: BLOOD SPECIMENOrdering Facility: [facility] Address: [address] [place] [address] Performed By: #### 5 7021-8 ####[facility]ATORYCLIA [id number] [address] [place] MCH (RBC) [Entitic mass] 27.9 pg Normal 26.0-34.0 [facility] Comment on above: Order Comment: Speci men Type: BLOOD SPECIMENOrdering Facility: [facility] Address: [address] [place] [address] Performed By: #### 5 7021-8 ####[facility]ORYCLIA [id number] [address] MCHC (RBC) [Mass/Vol] 29.5 g/dL Low 30.5-36.0 [facility] Comment on above: Order Comment: Speci men Type: BLOOD SPECIMENOrdering Facility: [facility] Address: [address] [place] [address] Performed By: #### 5 7021-8 ####[facility]ORYCLIA [id number] [address] MCV (RBC) [Entitic vol] 94.7 fL Normal 80.0-100.0 [facility] Comment on above: Order Comment: Speci men Type: BLOOD SPECIMENOrdering Facility: [facility] Address: [address] [place] [address] Performed By: #### 5 7021-8 ####[facility]ORYCLIA [id number] [address] Monocytes (Bld) [#/Vol] 0.69 10*3/uL Normal <0.87 [facility] Comment on above: Order Comment: Speci men Type: BLOOD SPECIMENOrdering Facility: [facility] Address: [address] [place] [address] Performed By: #### 5 7021-8 ####[facility] LABORATORYCLIA [id number] [address] Monocytes/100 WBC (Bld) 6.8 % Normal [facility] Comment on above: Order Comment: Speci men Type: BLOOD SPECIMENOrdering Facility: [facility] Address: [address] [place] [address] Performed By: #### 5 7021-8 ####[facility] LABORATORYCLIA [id number] [place] [address] [place] Neutrophils (Bld) [#/Vol] 7.19 10*3/uL Normal 1.45-7.50 [facility] Comment on above: Order Comment: Speci men Type: BLOOD SPECIMENOrdering Facility: [facility] Address: [address] [place] [address] Performed By: #### 5 7021-8 ####[facility] LABORATORYCLIA [id number] [address] [place] Neutrophils/100 WBC (Bld) 71.1 % Normal [facility] Comment on above: Order Comment: Speci men Type: BLOOD SPECIMENOrdering Facility: [facility] Address: [address] [place] [address] Performed By: #### 5 7021-8 ####[facility] LABORATORYCLIA [id number] [address] [place] Nucleated RBC (Bld) [#/Vol] 10*3/uL Normal <0.01 [facility] Comment on above: Order Comment: Speci men Type: BLOOD SPECIMENOrdering Facility: [facility] Address: [address] [place] [address] Performed By: #### 5 7021-8 ####[facility]ORATORYCLIA [id number] [address] [place] Nucleated RBC/100 WBC (Bld) [Ratio] 0.0 /100 WBC Normal [facility] Comment on above: Order Comment: Speci men Type: BLOOD SPECIMENOrdering Facility: [facility] Address: [address] [place] [address] Performed By: #### 5 7021-8 ####[facility]ORATORYCLIA [id number] [address] [place] Platelet mean volume (Bld) [Entitic vol] 10.3 fL Normal 9.0-12.7 [facility] Comment on above: Order Comment: Speci men Type: BLOOD SPECIMENOrdering Facility: [facility] Address: [address] [place] [address] Performed By: #### 5 7021-8 ####[facility] LABORATORYCLIA [id number] [address] OF [facility] Platelets (Bld) [#/Vol] 403 10*3/uL High 150-400 [facility] Comment on above: Order Comment: Speci men Type: BLOOD SPECIMENOrdering Facility: [facility] Address: [address] [place] [address] Performed By: #### 5 7021-8 ####[facility]ORATORYCLIA [id number] [address] STATES [place] [facility] RBC (Bld) [#/Vol] 3.40 10*6/uL Low 4.20-6.00 [facility] Comment on above: Order Comment: Speci men Type: BLOOD SPECIMENOrdering Facility: [facility] Address: [address] [place] [address] Performed By: #### 5 7021-8 ####[facility]ORATORYCLIA [id number] [address] OF [facility] WBC (Bld) [#/Vol] 10.12 10*3/uL Normal 3.70-11.00 [facility] Comment on above: Order Comment: Speci men Type: BLOOD SPECIMENOrdering Facility: [facility] Address: [address] [place] [address] Performed By: #### 5 7021-8 ####[facility]ORATORYCLIA [id number] [address] [facility] Magnesium SerPl-mCncon 07-18 Magnesium [Mass/Vol] 2.4 mg/dL High 1.7-2.3 [facility] Comment on above: Order Comment: Speci men Type: BLOOD SPECIMENOrdering Facility: [facility] Address: [address] [place] [address] Performed By: #### 2 4321-2, 84008-7, 2777-1 ####[facility] LABORATORYCLIA [id number] [address] [place] NURSING PROGon 07-18-2021 NURSING PROG Normal [facility] NURSING PROG Normal [facility] Phosphate SerPl-mCncon 07-18 Phosphate [Mass/Vol] 3.9 mg/dL Normal 2.7-4.8 [facility] Comment on above: Order Comment: Speci men Type: BLOOD SPECIMENOrdering Facility: [facility] Address: [address] [place] [address] Performed By: #### 2 4321-2, 54072-4, 2777-1 ####[facility]ORATORYCLIA [id number] [address] THERAPY NTon 07-18-2021 THERAPY NT Normal [facility] aPTT PPPon 07-18-2021 aPTT Coag (PPP) [Time] 52.3 s High 23.0-32.4 [facility] Comment on above: Order Comment: Speci men Type: BLOOD SPECIMENOrdering Facility: [facility] Address: [address] [place] [address] Performed By: #### 1 4979-9 ####[facility]ORATORYCLIA [id number] [address] CBC W Auto Differential pane l (Bld)on 07-17-2021 Basophils (Bld) [#/Vol] 0.05 10*3/uL Normal <0.11 [facility] Comment on above: Order Comment: Speci men Type: BLOOD SPECIMENOrdering Facility: [facility] Address: [address] [place] [address] Performed By: #### 5 7021-8 ####[facility]ORATORYCLIA [id number] [address] Basophils/100 WBC (Bld) 0.5 % Normal [facility] Comment on above: Order Comment: Speci men Type: BLOOD SPECIMENOrdering Facility: [facility] Address: [address] [place] [address] Performed By: #### 5 7021-8 ####[facility]ORATORYCLIA [id number] [address] Differential cell count method Nom (Bld) Auto Normal [facility] Comment on above: Order Comment: Speci men Type: BLOOD SPECIMENOrdering Facility: [facility] Address: [address] [place] [address] Performed By: #### 5 7021-8 ####[facility]ORATORYCLIA [id number] [address] [place] Eosinophils (Bld) [#/Vol] 0.32 10*3/uL Normal <0.46 [facility] Comment on above: Order Comment: Speci men Type: BLOOD SPECIMENOrdering Facility: [facility] Address: [address] [place] [address] Performed By: #### 5 7021-8 ####[facility]ORATORYCLIA [id number] [address] Eosinophils/100 WBC (Bld) 3.4 % Normal [facility] Comment on above: Order Comment: Speci men Type: BLOOD SPECIMENOrdering Facility: [facility] Address: [address] [place] [address] Performed By: #### 5 7021-8 ####[facility]ORATORYCLIA [id number] [address] [place] Erythrocyte distribution width (RBC) [Ratio] 16.6 % High 11.5-15.0 [facility] Comment on above: Order Comment: Speci men Type: BLOOD SPECIMENOrdering Facility: [facility] Address: [address] [place] [address] Performed By: #### 5 7021-8 ####[facility]ORATORYCLIA [id number] [address] Hematocrit (Bld) [Volume fraction] 30.7 % Low 39.0-51.0 [facility] Comment on above: Order Comment: Speci men Type: BLOOD SPECIMENOrdering Facility: [facility] Address: [address] [place] [address] Performed By: #### 5 7021-8 ####[facility]ORATORYCLIA [id number] [address] [place] Hemoglobin (Bld) [Mass/Vol] 9.0 g/dL Low 13.0-17.0 [facility] Comment on above: Order Comment: Speci men Type: BLOOD SPECIMENOrdering Facility: [facility] Address: [address] [place] [address] Performed By: #### 5 7021-8 ####[facility]ORATORYCLIA [id number] [address] IMMATURE GRAN % 0.6 % Normal [facility] Comment on above: Order Comment: Speci men Type: BLOOD SPECIMENOrdering Facility: [facility] Address: [address] [place] [address] Performed By: #### 5 7021-8 ####[facility]ORATORYCLIA [id number] [address] IMMATURE GRAN ABS 0.06 k/uL Normal <0.10 [facility] Comment on above: Order Comment: Speci men Type: BLOOD SPECIMENOrdering Facility: [facility] Address: [address] [place] [address] Performed By: #### 5 7021-8 ####[facility]ORATORYCLIA [id number] [address] [place] Lymphocytes (Bld) [#/Vol] 1.61 10*3/uL Normal 1.00-4.00 [facility] Comment on above: Order Comment: Speci men Type: BLOOD SPECIMENOrdering Facility: [facility] Address: [address] [place] [address] Performed By: #### 5 7021-8 ####[facility]ORATORYCLIA [id number] [address] [place] Lymphocytes/100 WBC (Bld) 17.3 % Normal [facility] Comment on above: Order Comment: Speci men Type: BLOOD SPECIMENOrdering Facility: [facility] Address: [address] [place] [address] Performed By: #### 5 7021-8 ####[facility]ORATORYCLIA [id number] [address] MCH (RBC) [Entitic mass] 26.9 pg Normal 26.0-34.0 [facility] Comment on above: Order Comment: Speci men Type: BLOOD SPECIMENOrdering Facility: [facility] Address: [address] [place] [address] Performed By: #### 5 7021-8 ####[facility]ORATORYCLIA [id number] [address] MCHC (RBC) [Mass/Vol] 29.3 g/dL Low 30.5-36.0 [facility] Comment on above: Order Comment: Speci men Type: BLOOD SPECIMENOrdering Facility: [facility] Address: [address] [place] [address] Performed By: #### 5 7021-8 ####[facility]ORATORYCLIA [id number] [address] MCV (RBC) [Entitic vol] 91.9 fL Normal 80.0-100.0 [facility] Comment on above: Order Comment: Speci men Type: BLOOD SPECIMENOrdering Facility: [facility] Address: [address] [place] [address] Performed By: #### 5 7021-8 ####[facility]ORATORYCLIA [id number] [address] Monocytes (Bld) [#/Vol] 0.61 10*3/uL Normal <0.87 [facility] Comment on above: Order Comment: Speci men Type: BLOOD SPECIMENOrdering Facility: [facility] Address: [address] [place] [address] Performed By: #### 5 7021-8 ####[facility]ORATORYCLIA [id number] [address] [place] Monocytes/100 WBC (Bld) 6.6 % Normal [facility] Comment on above: Order Comment: Speci men Type: BLOOD SPECIMENOrdering Facility: [facility] Address: [address] [place] [address] Performed By: #### 5 7021-8 ####[facility] LABORATORYCLIA [id number] [place] [address] [place] Neutrophils (Bld) [#/Vol] 6.64 10*3/uL Normal 1.45-7.50 [facility] Comment on above: Order Comment: Speci men Type: BLOOD SPECIMENOrdering Facility: [facility] Address: [address] [place] [address] Performed By: #### 5 7021-8 ####[facility]ORATORYCLIA [id number] [address] [place] Neutrophils/100 WBC (Bld) 71.6 % Normal [facility] Comment on above: Order Comment: Speci men Type: BLOOD SPECIMENOrdering Facility: [facility] Address: [address] [place] [address] Performed By: #### 5 7021-8 ####[facility]ORATORYCLIA [id number] [place] [address] [place] Nucleated RBC (Bld) [#/Vol] 10*3/uL Normal <0.01 [facility] Comment on above: Order Comment: Speci men Type: BLOOD SPECIMENOrdering Facility: [facility] Address: [address] [place] [address] Performed By: #### 5 7021-8 ####[facility]ORATORYCLIA [id number] [address] [place] Nucleated RBC/100 WBC (Bld) [Ratio] 0.0 /100 WBC Normal [facility] Comment on above: Order Comment: Speci men Type: BLOOD SPECIMENOrdering Facility: [facility] Address: [address] [place] [address] Performed By: #### 5 7021-8 ####[facility] LABORATORYCLIA [id number] [address] [place] Platelet mean volume (Bld) [Entitic vol] 10.1 fL Normal 9.0-12.7 [facility] Comment on above: Order Comment: Speci men Type: BLOOD SPECIMENOrdering Facility: [facility] Address: [address] [place] [address] Performed By: #### 5 7021-8 ####[facility] LABORATORYCLIA [id number] [place] [address] [place] Platelets (Bld) [#/Vol] 387 10*3/uL Normal 150-400 [facility] Comment on above: Order Comment: Speci men Type: BLOOD SPECIMENOrdering Facility: [facility] Address: [address] [place] [address] Performed By: #### 5 7021-8 ####[facility] LABORATORYCLIA [id number] [place] [address] [place] RBC (Bld) [#/Vol] 3.34 10*6/uL Low 4.20-6.00 [facility] Comment on above: Order Comment: Speci men Type: BLOOD SPECIMENOrdering Facility: [facility] Address: [address] [place] [address] Performed By: #### 5 7021-8 ####[facility] LABORATORYCLIA [id number] [place] [address] [place] WBC (Bld) [#/Vol] 9.29 10*3/uL Normal 3.70-11.00 [facility] Comment on above: Order Comment: Speci men Type: BLOOD SPECIMENOrdering Facility: [facility] Address: [address] [place], [place] [address] Performed By: #### 5 7021-8 ####[facility] LABORATORYCLIA [id number] [address] [place] CONSULT PROGon 07-17-2021 CONSULT PROG Normal [facility] Magnesium SerPl-ncon 07-17 Magnesium [Mass/Vol] 2.3 mg/dL Normal 1.7-2.3 [facility] Comment on above: Order Comment: Speci men Type: BLOOD SPECIMENOrdering Facility: [facility] Address: [address] [place] [address] Performed By: #### 2 777-1, ####[facility] LABORATORYCLIA [id number] [address] NURSING PROGon 07-17-2021 NURSING PROG Normal [facility] NURSING PROG Normal [facility] NURSING PROG Normal [facility] Phosphate SerPl-mCncon 07-17 Phosphate [Mass/Vol] 3.6 mg/dL Normal 2.7-4.8 [facility] Comment on above: Order Comment: Speci men Type: BLOOD SPECIMENOrdering Facility: [facility] Address: [address] [place] [address] Performed By: #### 2 777-1, ####[facility] LABORATORYCLIA [id number] [address] aPTT PPPon 07-17-2021 aPTT Coag (PPP) [Time] 57.2 s High 23.0-32.4 [facility] Comment on above: Order Comment: Speci men Type: BLOOD SPECIMENOrdering Facility: [facility] Address: [address] [place] [address] Performed By: #### 1 4979-9 ####[facility] LABORATORYCLIA [id number] [place] [address] [place] Basic metabolic 2000 panelon 07-16-2021 Anion gap [Moles/Vol] 5 mmol/L Low 9-18 [facility] Comment on above: Order Comment: Speci men Type: BLOOD SPECIMENOrdering Facility: [facility] Address: [address] [place] [address] Performed By: #### 2 777-1, , ####[facility] LABORATORYCLIA [id number] [place] [address] [place] Calcium [Mass/Vol] 9.1 mg/dL Normal 8.5-10.2 [facility] Comment on above: Order Comment: Speci men Type: BLOOD SPECIMENOrdering Facility: [facility] Address: [address] [place] [address] Performed By: #### 2 777-1, , ####[facility] LABORATORYCLIA [id number] [place] [address] [place] Chloride [Moles/Vol] 101 mmol/L Normal 97-105 [facility] Comment on above: Order Comment: Speci men Type: BLOOD SPECIMENOrdering Facility: [facility] Address: [address] [place] [address] Performed By: #### 2 777-1, , ####[facility] LABORATORYCLIA [id number] [place] [address] [place] CO2 [Moles/Vol] 35 mmol/L High 22-30 [facility] Comment on above: Order Comment: Speci men Type: BLOOD SPECIMENOrdering Facility: [facility] Address: [address] [place] [address] Performed By: #### 2 777-1, , ####[facility] LABORATORYCLIA [id number] [place] [address] [place] Creatinine [Mass/Vol] 0.73 mg/dL Normal 0.73-1.22 [facility] Comment on above: Order Comment: Speci men Type: BLOOD SPECIMENOrdering Facility: [facility] Address: [address] [place] [address] Performed By: #### 2 777-1, , ####[facility] LABORATORYCLIA [id number] [address] [place] ESTIMATED GLOMERULAR FILTRATION RATE 98 mL/min/1.73m??? Normal >=60 [facility] Comment on above: Order Comment: Shira feldman Type: BLOOD SPECIMENOrdering Facility: [facility] Address: [address] [place] [address] Result Comment: Luzmaria mated Glomerular Filtration Rate [...] actual GFR. Performed By: #### 2 777-1, 63949-7, ####[facility]CL[facility] [id number] [place] [address] [place] Glucose [Mass/Vol] 133 mg/dL High 74-99 [facility] Comment on above: Order Comment: Shira feldman Type: BLOOD SPECIMENOrdering Facility: [facility] Address: [address] [place] [address] Result Comment: The [place] [employer] (ADA) provides guidance for cutoff [...] Standards of Medical Care in Diabetes 2016, [place] [employer]. Diabetes Care. 2016.39(Suppl 1). Performed By: #### 2 777-1, 86684-1, 02610-4 ####[facility] LABORATORYCLIA [id number] [place] [id number] [place] Potassium [Moles/Vol] 4.2 mmol/L Normal 3.7-5.1 [facility] Comment on above: Order Comment: Speci men Type: BLOOD SPECIMENOrdering Facility: [facility] Address: [address] [place] [address] Performed By: #### 2 777-1, 25271-8, 86955-1 ####[facility] LABORATORYCLIA [id number] [address] [place] [facility] Sodium [Moles/Vol] 141 mmol/L Normal 136-144 [facility] Comment on above: Order Comment: Speci men Type: BLOOD SPECIMENOrdering Facility: [facility] Address: [address] [place] [address] Performed By: #### 2 777-1, 91343-3, ####[facility] LABORATORYCLIA [id number] [address] [place] Urea nitrogen [Mass/Vol] 21 mg/dL Normal 9-24 [facility] Comment on above: Order Comment: Speci men Type: BLOOD SPECIMENOrdering Facility: [facility] Address: [address] [place] [address] Performed By: #### 2 777-1, 35024-3, ####[facility] LABORATORYCLIA [id number] [address] [place] CBC W Auto Differential pane l (Bld)on 07-16-2021 Basophils (Bld) [#/Vol] 0.06 10*3/uL Normal <0.11 [facility] Comment on above: Order Comment: Speci men Type: BLOOD SPECIMENOrdering Facility: [facility] Address: [address] [place] [address] Performed By: #### 5 7021-8 ####[facility] LABORATORYCLIA [id number] [address] Basophils/100 WBC (Bld) 0.7 % Normal [facility] Comment on above: Order Comment: Speci men Type: BLOOD SPECIMENOrdering Facility: [facility] Address: [address] [place] [address] Performed By: #### 5 7021-8 ####[facility] LABORATORYCLIA [id number] [address] Differential cell count method Nom (Bld) Auto Normal [facility] Comment on above: Order Comment: Speci men Type: BLOOD SPECIMENOrdering Facility: [facility] Address: [address] [place] [address] Performed By: #### 5 7021-8 ####[facility]ORATORYCLIA [id number] [address] Eosinophils (Bld) [#/Vol] 0.35 10*3/uL Normal <0.46 [facility] Comment on above: Order Comment: Speci men Type: BLOOD SPECIMENOrdering Facility: [facility] Address: [address] [place] [address] Performed By: #### 5 7021-8 ####[facility] LABORATORYCLIA [id number] [address] Eosinophils/100 WBC (Bld) 3.9 % Normal [facility] Comment on above: Order Comment: Speci men Type: BLOOD SPECIMENOrdering Facility: [facility] Address: [address] [place] [address] Performed By: #### 5 7021-8 ####[facility] LABORATORYCLIA [id number] [address] Erythrocyte distribution width (RBC) [Ratio] 16.5 % High 11.5-15.0 [facility] Comment on above: Order Comment: Speci men Type: BLOOD SPECIMENOrdering Facility: [facility] Address: [address] [place] [address] Performed By: #### 5 7021-8 ####[facility] LABORATORYCLIA [id number] [address] Hematocrit (Bld) [Volume fraction] 30.9 % Low 39.0-51.0 [facility] Comment on above: Order Comment: Speci men Type: BLOOD SPECIMENOrdering Facility: [facility] Address: [address] [place] [address] Performed By: #### 5 7021-8 ####[facility]ORATORYCLIA [id number] [address] [place] Hemoglobin (Bld) [Mass/Vol] 9.1 g/dL Low 13.0-17.0 [facility] Comment on above: Order Comment: Speci men Type: BLOOD SPECIMENOrdering Facility: [facility] Address: [address] [place] [address] Performed By: #### 5 7021-8 ####[facility] LABORATORYCLIA [id number] [address] IMMATURE GRAN % 0.4 % Normal [facility] Comment on above: Order Comment: Speci men Type: BLOOD SPECIMENOrdering Facility: [facility] Address: [address] [place] [address] Performed By: #### 5 7021-8 ####[facility] LABORATORYCLIA [id number] [address] IMMATURE GRAN ABS 0.04 k/uL Normal <0.10 [facility] Comment on above: Order Comment: Speci men Type: BLOOD SPECIMENOrdering Facility: [facility] Address: [address] [place] [address] Performed By: #### 5 7021-8 ####[facility] LABORATORYCLIA [id number] [address] [place] Lymphocytes (Bld) [#/Vol] 1.35 10*3/uL Normal 1.00-4.00 [facility] Comment on above: Order Comment: Speci men Type: BLOOD SPECIMENOrdering Facility: [facility] Address: [address] [place] [address] Performed By: #### 5 7021-8 ####[facility]ORATORYCLIA [id number] [address] Lymphocytes/100 WBC (Bld) 15.0 % Normal [facility] Comment on above: Order Comment: Speci men Type: BLOOD SPECIMENOrdering Facility: [facility] Address: [address] [place] [address] Performed By: #### 5 7021-8 ####[facility] LABORATORYCLIA [id number] [address] MCH (RBC) [Entitic mass] 27.1 pg Normal 26.0-34.0 [facility] Comment on above: Order Comment: Speci men Type: BLOOD SPECIMENOrdering Facility: [facility] Address: [address] [place] [address] Performed By: #### 5 7021-8 ####[facility] LABORATORYCLIA [id number] [address] STATES [facility] MCHC (RBC) [Mass/Vol] 29.4 g/dL Low 30.5-36.0 [facility] Comment on above: Order Comment: Speci men Type: BLOOD SPECIMENOrdering Facility: [facility] Address: [address] [place] [address] Performed By: #### 5 7021-8 ####[facility] LABORATORYCLIA [id number] [address] MCV (RBC) [Entitic vol] 92.0 fL Normal 80.0-100.0 [facility] Comment on above: Order Comment: Speci men Type: BLOOD SPECIMENOrdering Facility: [facility] Address: [address] [place] [address] Performed By: #### 5 7021-8 ####[facility] LABORATORYCLIA [id number] [address] Monocytes (Bld) [#/Vol] 0.53 10*3/uL Normal <0.87 [facility] Comment on above: Order Comment: Speci men Type: BLOOD SPECIMENOrdering Facility: [facility] Address: [address] [place] [address] Performed By: #### 5 7021-8 ####[facility] LABORATORYCLIA [id number] [address] [place] Monocytes/100 WBC (Bld) 5.9 % Normal [facility] Comment on above: Order Comment: Speci men Type: BLOOD SPECIMENOrdering Facility: [facility] Address: [address] [place] [address] Performed By: #### 5 7021-8 ####[facility] LABORATORYCLIA [id number] [place] [address] [place] Neutrophils (Bld) [#/Vol] 6.67 10*3/uL Normal 1.45-7.50 [facility] Comment on above: Order Comment: Speci men Type: BLOOD SPECIMENOrdering Facility: [facility] Address: [address] [place] [address] Performed By: #### 5 7021-8 ####[facility] LABORATORYCLIA [id number] [address] [place] Neutrophils/100 WBC (Bld) 74.1 % Normal [facility] Comment on above: Order Comment: Speci men Type: BLOOD SPECIMENOrdering Facility: [facility] Address: [address] [place] [address] Performed By: #### 5 7021-8 ####[facility]ORATORYCLIA [id number] [place] [address] [place] Nucleated RBC (Bld) [#/Vol] 10*3/uL Normal <0.01 [facility] Comment on above: Order Comment: Speci men Type: BLOOD SPECIMENOrdering Facility: [facility] Address: [address] [place] [address] Performed By: #### 5 7021-8 ####[facility] LABORATORYCLIA [id number] [address] [place] Nucleated RBC/100 WBC (Bld) [Ratio] 0.0 /100 WBC Normal [facility] Comment on above: Order Comment: Speci men Type: BLOOD SPECIMENOrdering Facility: [facility] Address: [address] [place] [address] Performed By: #### 5 7021-8 ####[facility]ORATORYCLIA [id number] [address] [place] Platelet mean volume (Bld) [Entitic vol] 9.9 fL Normal 9.0-12.7 [facility] Comment on above: Order Comment: Speci men Type: BLOOD SPECIMENOrdering Facility: [facility] Address: [address] [place] [address] Performed By: #### 5 7021-8 ####[facility] LABORATORYCLIA [id number] [place] [address] [place] Platelets (Bld) [#/Vol] 391 10*3/uL Normal 150-400 [facility] Comment on above: Order Comment: Speci men Type: BLOOD SPECIMENOrdering Facility: [facility] Address: [address] [place] [address] Performed By: #### 5 7021-8 ####[facility]ORATORYCLIA [id number] [place] [address] [place] RBC (Bld) [#/Vol] 3.36 10*6/uL Low 4.20-6.00 [facility] Comment on above: Order Comment: Speci men Type: BLOOD SPECIMENOrdering Facility: [facility] Address: [address] [place] [address] Performed By: #### 5 7021-8 ####[facility]ORATORYCLIA [id number] [place] [address] [place] WBC (Bld) [#/Vol] 9.00 10*3/uL Normal 3.70-11.00 [facility] Comment on above: Order Comment: Speci men Type: BLOOD SPECIMENOrdering Facility: [facility] Address: [address] [place] [address] Performed By: #### 5 7021-8 ####[facility] LABORATORYCLIA [id number] [address] [place] CONSULT PROGon 07-16-2021 CONSULT PROG Normal [facility] CONSULT PROG Normal [facility] Magnesium SerPl-mCncon 07-16 Magnesium [Mass/Vol] 2.3 mg/dL Normal 1.7-2.3 [facility] Comment on above: Order Comment: Speci men Type: BLOOD SPECIMENOrdering Facility: [facility] Address: [address] [place] [address] Performed By: #### 2 777-1, 37520-6, 87230-2 ####[facility]ORATORYCLIA [id number] [address] [place] NURSING PROGon 07-16-2021 NURSING PROG Normal [facility] Phosphate SerPl-mCncon 07-16 Phosphate [Mass/Vol] 3.6 mg/dL Normal 2.7-4.8 [facility] Comment on above: Order Comment: Speci men Type: BLOOD SPECIMENOrdering Facility: [facility] Address: [address] [place] [address] Performed By: #### 2 777-1, 75980-9, 86942-5 ####[facility] LABORATORYCLIA [id number] [address] [place] Vancomycin random [Mass/Vol] on 07-16-2021 Vancomycin [Mass/Vol] 16.9 ug/mL Normal 10.0-20.0 [facility] Comment on above: Order Comment: Speci men Type: BLOOD SPECIMENOrdering Facility: [facility] Address: [address] [place] [address] Result Comment: Refe rence ranges and high/low indicator flags are provided as general guidelines only. The treating physician must determine appropriate target levels/dosing based on the specific clinical situation. Performed By: #### 4 091-5 ####[facility]ORATORYCLIA [id number] [address] [place] aPTT PPPon 07-16-2021 aPTT Coag (PPP) [Time] 57.2 s High 23.0-32.4 [facility] Comment on above: Order Comment: Speci men Type: BLOOD SPECIMENOrdering Facility: [facility] Address: [address] [place] [address] Performed By: #### 1 4979-9 ####[facility]ORATORYCLIA [id number] [place] [address] [place] ALLIED HEALTHon 07-15-2021 ALLIED HEALTH Normal [facility] Basic metabolic 2000 panelon 07-15-2021 Anion gap [Moles/Vol] 11 mmol/L Normal 9-18 [facility] Comment on above: Order Comment: Speci men Type: BLOOD SPECIMENOrdering Facility: [facility] Address: [address] [place] [address] Performed By: #### 2 4321-2, , 2776-05 ####[facility]ORATORYCLIA [id number] [place] [address] [place] Calcium [Mass/Vol] 8.8 mg/dL Normal 8.5-10.2 [facility] Comment on above: Order Comment: Speci men Type: BLOOD SPECIMENOrdering Facility: [facility] Address: [address] [place] [address] Performed By: #### 2 4321-2, , 2776-05 ####[facility]ORATORYCLIA [id number] [place] [address] [place] Chloride [Moles/Vol] 101 mmol/L Normal 97-105 [facility] Comment on above: Order Comment: Speci men Type: BLOOD SPECIMENOrdering Facility: [facility] Address: [address] [place], [place] [address] Performed By: #### 2 4321-2, , 2776-05 ####[facility]ORATORYCLIA [id number] [place] [address] [place] CO2 [Moles/Vol] 31 mmol/L High 22-30 [facility] Comment on above: Order Comment: Speci men Type: BLOOD SPECIMENOrdering Facility: [facility] Address: [address] [place], [place] [address] Performed By: #### 2 4321-2, 85923-6, 2776-05 ####[facility]IA [id number] [place] [id number] [place] [facility] Creatinine [Mass/Vol] 0.76 mg/dL Normal 0.73-1.22 [facility] Comment on above: Order Comment: Speccara feldman Type: BLOOD SPECIMENOrdering Facility: [facility] Address: [address] [place] [address] Performed By: #### 2 4321-2, , 2776-05 ####[facility]ITALCLIA [id number] [place] [id number] [facility] ESTIMATED GLOMERULAR FILTRATION RATE 97 mL/min/1.73m??? Normal >=60 [facility] Comment on above: Order Comment: Speccara feldman Type: BLOOD SPECIMENOrdering Facility: [facility] Address: [address] [place] [address] Result Comment: Luzmaria mated Glomerular Filtration Rate [...] 4321-2, , 2776-05 ####[facility] LABORATORYCLIA [id number] [place] [id number] [place] Glucose [Mass/Vol] 115 mg/dL High 74-99 [facility] Comment on above: Order Comment: Speci men Type: BLOOD SPECIMENOrdering Facility: [facility] Address: [address] Result Comment: The [place] [employer] (ADA) provides guidance for cutoff [...] Standards of Medical Care in Diabetes 2016, [place] [employer]. Diabetes Care. 2016.39(Suppl 1). Performed By: #### 2 4321-2, , 2776-05 ####[facility] LABORATORYCLIA [id number] [place] [address] [place] Potassium [Moles/Vol] 4.0 mmol/L Normal 3.7-5.1 [facility] Comment on above: Order Comment: Shira feldman Type: BLOOD SPECIMENOrdering Facility: [facility] Address: [address] [place] [address] Performed By: #### 2 432-2, , 2776-05 ####[facility]ORATORYCLIA [id number] [address] [place] Sodium [Moles/Vol] 143 mmol/L Normal 136-144 [facility] Comment on above: Order Comment: Shira feldman Type: BLOOD SPECIMENOrdering Facility: [facility] Address: [address] [place] [address] Performed By: #### 2 4321-2, , 2776-05 ####[facility]ORATORYCLIA [id number] [place] [address] [place] Urea nitrogen [Mass/Vol] 17 mg/dL Normal 9-24 [facility] Comment on above: Order Comment: Johni francia Type: BLOOD SPECIMENOrdering Facility: [facility] Address: [address] [place] [address] Performed By: #### 2 4321-2, , 2776-05 ####[facility] LABORATORYCLIA [id number] [place] [address] [place] CASE MANAGEMon 07-15-2021 CASE MANAGEM Normal [facility] CBC panel Auto (Bld)on 07-15 Erythrocyte distribution width (RBC) [Ratio] 16.4 % High 11.5-15.0 [facility] Comment on above: Order Comment: Speci men Type: BLOOD SPECIMENOrdering Facility: [facility] Address: [address] [place] [address] Performed By: #### 5 8410-2 ####[facility]ORATORYCLIA [id number] [address] Hematocrit (Bld) [Volume fraction] 30.3 % Low 39.0-51.0 [facility] Comment on above: Order Comment: Speci men Type: BLOOD SPECIMENOrdering Facility: [facility] Address: [address] [place] [address] Performed By: #### 5 8410-2 ####[facility]ORATORYCLIA [id number] [address] OF [facility] Hemoglobin (Bld) [Mass/Vol] 9.2 g/dL Low 13.0-17.0 [facility] Comment on above: Order Comment: Speci men Type: BLOOD SPECIMENOrdering Facility: [facility] Address: [address] [place] [address] Performed By: #### 5 8410-2 ####[facility]ORATORYCLIA [id number] [address] [place] [facility] MCH (RBC) [Entitic mass] 28.3 pg Normal 26.0-34.0 [facility] Comment on above: Order Comment: Speci men Type: BLOOD SPECIMENOrdering Facility: [facility] Address: [address] [place] [address] Performed By: #### 5 8410-2 ####[facility]ORATORYCLIA [id number] [address] [place] MCHC (RBC) [Mass/Vol] 30.4 g/dL Low 30.5-36.0 [facility] Comment on above: Order Comment: Speci men Type: BLOOD SPECIMENOrdering Facility: [facility] Address: [address] [place] [address] Performed By: #### 5 8410-2 ####[facility]ORATORYCLIA [id number] [address] MCV (RBC) [Entitic vol] 93.2 fL Normal 80.0-100.0 [facility] Comment on above: Order Comment: Speci men Type: BLOOD SPECIMENOrdering Facility: [facility] Address: [address] [place] [address] Performed By: #### 5 8410-2 ####[facility]ORATORYCLIA [id number] [address] Nucleated RBC (Bld) [#/Vol] 10*3/uL Normal <0.01 [facility] Comment on above: Order Comment: Speci men Type: BLOOD SPECIMENOrdering Facility: [facility] Address: [address] [place] [address] Performed By: #### 5 8410-2 ####[facility]ORATORYCLIA [id number] [address] Platelet mean volume (Bld) [Entitic vol] 9.9 fL Normal 9.0-12.7 [facility] Comment on above: Order Comment: Speci men Type: BLOOD SPECIMENOrdering Facility: [facility] Address: [address] [place] [address] Performed By: #### 5 8410-2 ####[facility]ORATORYCLIA [id number] [address] Platelets (Bld) [#/Vol] 381 10*3/uL Normal 150-400 [facility] Comment on above: Order Comment: Speci men Type: BLOOD SPECIMENOrdering Facility: [facility] Address: [address] [place] [address] Performed By: #### 5 8410-2 ####[facility] LABORATORYCLIA [id number] [place] [address] [place] RBC (Bld) [#/Vol] 3.25 10*6/uL Low 4.20-6.00 [facility] Comment on above: Order Comment: Speci men Type: BLOOD SPECIMENOrdering Facility: [facility] Address: [address] [place] [address] Performed By: #### 5 8410-2 ####[facility]ORATORYCLIA [id number] [address] [place] WBC (Bld) [#/Vol] 8.80 10*3/uL Normal 3.70-11.00 [facility] Comment on above: Order Comment: Speci men Type: BLOOD SPECIMENOrdering Facility: [facility] Address: [address] [place] [address] Performed By: #### 5 8410-2 ####[facility]ORATORYCLIA [id number] [address] Magnesium SerPl-mCncon 07-15 Magnesium [Mass/Vol] 2.2 mg/dL Normal 1.7-2.3 [facility] Comment on above: Order Comment: Speci men Type: BLOOD SPECIMENOrdering Facility: [facility] Address: [address] [place] [address] Performed By: #### 2 4321-2, , 2777-1 ####[facility] LABORATORYCLIA [id number] [address] [place] NURSING PROGon 07-15-2021 NURSING PROG Normal [facility] NURSING PROG Normal [facility] NURSING PROG Normal [facility] NUTRITIONon 07-15-2021 NUTRITION Normal [facility] Phosphate SerPl-mCncon 07-15 Phosphate [Mass/Vol] 3.4 mg/dL Normal 2.7-4.8 [facility] Comment on above: Order Comment: Speci men Type: BLOOD SPECIMENOrdering Facility: [facility] Address: [address] [place] [address] Performed By: #### 2 4321-2, , 2777-1 ####[facility] LABORATORYCLIA [id number] [place] [address] [place] THERAPY NTon 07-15-2021 THERAPY NT Normal [facility] US DVT UPPER LTon 07-15-2021 US DVT UPPER LT Normal [facility] XR CHEST 1V FRONTALon 2021 XR CHEST 1V FRONTAL Normal [facility] aPTT PPPon 07-15-2021 aPTT Coag (PPP) [Time] 59.9 s High 23.0-32.4 [facility] Comment on above: Order Comment: Speci men Type: BLOOD SPECIMENOrdering Facility: [facility] Address: [address] [place] [address] Performed By: #### 1 4979-9 ####[facility] LABORATORYCLIA [id number] [place] [address] [place] Basic metabolic 2000 panelon 07-14-2021 Anion gap [Moles/Vol] 9 mmol/L Normal 9-18 [facility] Comment on above: Order Comment: Speci men Type: BLOOD SPECIMENOrdering Facility: [facility] Address: [address] [place] [address] Performed By: #### 1 9123-9, 2777-, 24078-8 ####[facility]ORATORYCLIA [id number] [place] [address] [place] Calcium [Mass/Vol] 8.5 mg/dL Normal 8.5-10.2 [facility] Comment on above: Order Comment: Speci men Type: BLOOD SPECIMENOrdering Facility: [facility] Address: [address] [place] [address] Performed By: #### 1 9123-9, 2777-, 19202-0 ####[facility] LABORATORYCLIA [id number] [place] [address] [place] Chloride [Moles/Vol] 99 mmol/L Normal 97-105 [facility] Comment on above: Order Comment: Speci men Type: BLOOD SPECIMENOrdering Facility: [facility] Address: [address] [place] [address] Performed By: #### 1 9123-9, 2777-1, 63605-9 ####[facility]ITALIA [id number] [address] CO2 [Moles/Vol] 31 mmol/L High 22-30 [facility] Comment on above: Order Comment: Speci men Type: BLOOD SPECIMENOrdering Facility: [facility] Address: [address] [place] [address] Performed By: #### 1 9123-9, 2777, 60251-3 ####[facility]OSPITALIA [id number] [address] Creatinine [Mass/Vol] 0.74 mg/dL Normal 0.73-1.22 [facility] Comment on above: Order Comment: Speci men Type: BLOOD SPECIMENOrdering Facility: [facility] Address: [address] [place] [address] Performed By: #### 1 9123-9, 2777, 74995-4 ####[facility]PITALIA [id number] [address] ESTIMATED GLOMERULAR FILTRATION RATE 98 mL/min/1.73m??? Normal >=60 [facility] Comment on above: Order Comment: Speci men Type: BLOOD SPECIMENOrdering Facility: [facility] Address: [address] [place] [address] Result Comment: Luzmaria mated Glomerular Filtration Rate [...] GFR. Performed By: #### 1 9123-9, 2777-1, 03576-8 ####[facility] LABORATORYCLIA [id number] [place] [address] [place] Glucose [Mass/Vol] 117 mg/dL High 74-99 [facility] Comment on above: Order Comment: Speci men Type: BLOOD SPECIMENOrdering Facility: [facility] Address: [address] [place] [address] Result Comment: The [place] [employer] (ADA) provides guidance for cutoff [...] Standards of Medical Care in Diabetes 2016, [place] [employer]. Diabetes Care. 2016.39(Suppl 1). Performed By: #### 1 9123-9, 2777-, 12678-8 ####[facility] LABORATORYCLIA [id number] [place] [address] [place] Potassium [Moles/Vol] 3.7 mmol/L Normal 3.7-5.1 [facility] Comment on above: Order Comment: Shira feldman Type: BLOOD SPECIMENOrdering Facility: [facility] Address: [address] [place], [place] [address] Performed By: #### 1 9123-9, 2777-, 69037-7 ####[facility] LABORATORYCLIA [id number] [place] [address] [place] Sodium [Moles/Vol] 139 mmol/L Normal 136-144 [facility] Comment on above: Order Comment: Shira francia Type: BLOOD SPECIMENOrdering Facility: [facility] Address: [address] [place] [address] Performed By: #### 1 9123-9, 2777-1, 58728-2 ####[facility] LABORATORYCLIA [id number] [place] [address] [place] Urea nitrogen [Mass/Vol] 16 mg/dL Normal 9-24 [facility] Comment on above: Order Comment: Speci men Type: BLOOD SPECIMENOrdering Facility: [facility] Address: [address] [place] [address] Performed By: #### 1 9123-9, 2777-1, 19691-3 ####[facility] LABORATORYCLIA [id number] [address] [place] [facility] CBC panel Auto (Bld)on 07-14 Erythrocyte distribution width (RBC) [Ratio] 16.2 % High 11.5-15.0 [facility] Comment on above: Order Comment: Speci men Type: BLOOD SPECIMENOrdering Facility: [facility] Address: [address] [place] [address] Performed By: #### 5 8410-2 ####[facility] LABORATORYCLIA [id number] [address] [place] Hematocrit (Bld) [Volume fraction] 29.7 % Low 39.0-51.0 [facility] Comment on above: Order Comment: Speci men Type: BLOOD SPECIMENOrdering Facility: [facility] Address: [address] [place] [address] Performed By: #### 5 8410-2 ####[facility] LABORATORYCLIA [id number] [address] [place] [facility] Hemoglobin (Bld) [Mass/Vol] 8.8 g/dL Low 13.0-17.0 [facility] Comment on above: Order Comment: Speci men Type: BLOOD SPECIMENOrdering Facility: [facility] Address: [address] [place] [address] Performed By: #### 5 8410-2 ####[facility] LABORATORYCLIA [id number] [address] [place] MCH (RBC) [Entitic mass] 27.5 pg Normal 26.0-34.0 [facility] Comment on above: Order Comment: Speci men Type: BLOOD SPECIMENOrdering Facility: [facility] Address: [address] [place] [address] Performed By: #### 5 8410-2 ####[facility]ATORYCLIA [id number] [address] MCHC (RBC) [Mass/Vol] 29.6 g/dL Low 30.5-36.0 [facility] Comment on above: Order Comment: Speci men Type: BLOOD SPECIMENOrdering Facility: [facility] Address: [address] [place] [address] Performed By: #### 5 8410-2 ####[facility]ORATORYCLIA [id number] [address] MCV (RBC) [Entitic vol] 92.8 fL Normal 80.0-100.0 [facility] Comment on above: Order Comment: Speci men Type: BLOOD SPECIMENOrdering Facility: [facility] Address: [address] [place] [address] Performed By: #### 5 8410-2 ####[facility]ATORYCLIA [id number] [address] Nucleated RBC (Bld) [#/Vol] 10*3/uL Normal <0.01 [facility] Comment on above: Order Comment: Speci men Type: BLOOD SPECIMENOrdering Facility: [facility] Address: [address] [place] [address] Performed By: #### 5 8410-2 ####[facility] LABORATORYCLIA [id number] Platelet mean volume (Bld) [Entitic vol] 9.6 fL Normal 9.0-12.7 [facility] Comment on above: Order Comment: Speci men Type: BLOOD SPECIMENOrdering Facility: [facility] Address: [address] [place] [address] Performed By: #### 5 8410-2 ####[facility] LABORATORYCLIA [id number] Platelets (Bld) [#/Vol] 354 10*3/uL Normal 150-400 [facility] Comment on above: Order Comment: Speci men Type: BLOOD SPECIMENOrdering Facility: [facility] Address: [address] [place] [address] Performed By: #### 5 8410-2 ####[facility] LABORATORYCLIA [id number] [place] [place] [address] [place] RBC (Bld) [#/Vol] 3.20 10*6/uL Low 4.20-6.00 [facility] Comment on above: Order Comment: Speci men Type: BLOOD SPECIMENOrdering Facility: [facility] Address: [address] [place] [address] Performed By: #### 5 8410-2 ####[facility] LABORATORYCLIA [id number] [address] WBC (Bld) [#/Vol] 9.41 10*3/uL Normal 3.70-11.00 [facility] Comment on above: Order Comment: Speci men Type: BLOOD SPECIMENOrdering Facility: [facility] Address: [address] [place] [address] Performed By: #### 5 8410-2 ####[facility] LABORATORYCLIA [id number] [address] [facility] CONSULT PROGon 07-14-2021 CONSULT PROG Normal [facility] Magnesium SerPl-mCncon 07-14 Magnesium [Mass/Vol] 2.2 mg/dL Normal 1.7-2.3 [facility] Comment on above: Order Comment: Speci men Type: BLOOD SPECIMENOrdering Facility: [facility] Address: [address] [place] [address] Performed By: #### 1 9123-9, 2777-1, 97079-9 ####[facility] LABORATORYCLIA [id number] [address] [place] NURSING PROGon 07-14-2021 NURSING PROG Normal [facility] Phosphate SerPl-mCncon 07-14 Phosphate [Mass/Vol] 3.6 mg/dL Normal 2.7-4.8 [facility] Comment on above: Order Comment: Speci men Type: BLOOD SPECIMENOrdering Facility: [facility] Address: [address] [place] [address] Performed By: #### 1 9123-9, 2777-1, 45719-1 ####[facility] LABORATORYCLIA [id number] [address] aPTT PPPon 07-14-2021 aPTT Coag (PPP) [Time] 62.9 s High 23.0-32.4 [facility] Comment on above: Order Comment: Speci men Type: BLOOD SPECIMENOrdering Facility: [facility] Address: [address] [place] [address] Performed By: #### 1 4979-9 ####[facility] [id number] [address] aPTT Coag (PPP) [Time] 55.2 s High 23.0-32.4 [facility] Comment on above: Order Comment: Speci men Type: BLOOD SPECIMENOrdering Facility: [facility] Address: [address] [place] [address] Performed By: #### 1 4979-9 ####[facility]ITALCLIA [id number] [address] [place] Basic metabolic 2000 panelon 07-13-2021 Anion gap [Moles/Vol] 10 mmol/L Normal 9-18 [facility] Comment on above: Order Comment: Speci men Type: BLOOD SPECIMENOrdering Facility: [facility] Address: [address] [place] [address] Performed By: #### 1 9123-9, 2777-1, 67519-3 ####[facility]ORATORYCLIA [id number] [address] [facility] Calcium [Mass/Vol] 8.5 mg/dL Normal 8.5-10.2 [facility] Comment on above: Order Comment: Speci men Type: BLOOD SPECIMENOrdering Facility: [facility] Address: [address] [place] [address] Performed By: #### 1 9123-9, 27711-04, 60849-3 ####[facility]ORATORYCLIA [id number] [address] [place] Chloride [Moles/Vol] 98 mmol/L Normal 97-105 [facility] Comment on above: Order Comment: Speci men Type: BLOOD SPECIMENOrdering Facility: [facility] Address: [address] [place] [address] Performed By: #### 1 9123-9, 2776-05, 80099-6 ####[facility]ORATORYCLIA [id number] [address] [place] CO2 [Moles/Vol] 32 mmol/L High 22-30 [facility] Comment on above: Order Comment: Speci men Type: BLOOD SPECIMENOrdering Facility: [facility] Address: [address] [place] [address] Performed By: #### 1 9123-9, 2776-05, ####[facility]ORATORYCLIA [id number] [address] [facility] Creatinine [Mass/Vol] 0.75 mg/dL Normal 0.73-1.22 [facility] Comment on above: Order Comment: Speci men Type: BLOOD SPECIMENOrdering Facility: [facility] Address: [address] [place] [address] Performed By: #### 1 9123-9, 27711-04, 98830-6 ####[facility]ORATORYCLIA [id number] [address] ESTIMATED GLOMERULAR FILTRATION RATE 98 mL/min/1.73m??? Normal >=60 [facility] Comment on above: Order Comment: Speci men Type: BLOOD SPECIMENOrdering Facility: [facility] Address: [address] [place] [address] Result Comment: Luzmaria mated Glomerular Filtration Rate [...] GFR. Performed By: #### 1 9123-9, 2777-, 79444-3 ####[facility]PITALIA [id number] [place] [address] [place] Glucose [Mass/Vol] 118 mg/dL High 74-99 [facility] Comment on above: Order Comment: Shira feldman Type: BLOOD SPECIMENOrdering Facility: [facility] Address: [address] [place] [address] Result Comment: The [place] [employer] (ADA) provides guidance for cutoff [...] Standards of Medical Care in Diabetes 2016, [place] [employer]. Diabetes Care. 2016.39(Suppl 1). Performed By: #### 1 9123-9, 2777-, 77845-3 ####[facility] HOSPITALIA [id number] [place] [address] [place] Potassium [Moles/Vol] 3.6 mmol/L Low 3.7-5.1 [facility] Comment on above: Order Comment: Shira feldman Type: BLOOD SPECIMENOrdering Facility: [facility] Address: [address] [place], [place] [address] Performed By: #### 1 9123-9, 2777-, 61668-9 ####[facility] LABORATORYCLIA [id number] [place], [place] [address] [place] [address] [place] Sodium [Moles/Vol] 140 mmol/L Normal 136-144 [facility] Comment on above: Order Comment: Speci men Type: BLOOD SPECIMENOrdering Facility: [facility] Address: [address] [place] [address] Performed By: #### 1 9123-9, 2777-, 55343-8 ####[facility]ORATORYCLIA [id number] [address] [place] Urea nitrogen [Mass/Vol] 15 mg/dL Normal 9-24 [facility] Comment on above: Order Comment: Speci men Type: BLOOD SPECIMENOrdering Facility: [facility] Address: [address] [place] [address] Performed By: #### 1 9123-9, 2777, 82846-3 ####[facility]ORATORYCLIA [id number] [address] CASE MANAGEMon 07-13-2021 CASE MANAGEM Normal [facility] CBC panel Auto (Bld)on 07-13 Erythrocyte distribution width (RBC) [Ratio] 16.2 % High 11.5-15.0 [facility] Comment on above: Order Comment: Speci men Type: BLOOD SPECIMENOrdering Facility: [facility] Address: [address] [place] [address] Performed By: #### 5 8410-2 ####[facility]ORATORYCLIA [id number] [address] STATES [facility] Hematocrit (Bld) [Volume fraction] 29.5 % Low 39.0-51.0 [facility] Comment on above: Order Comment: Speci men Type: BLOOD SPECIMENOrdering Facility: [facility] Address: [address] [place] [address] Performed By: #### 5 8410-2 ####[facility]ORATORYCLIA [id number] [address] [place] Hemoglobin (Bld) [Mass/Vol] 8.9 g/dL Low 13.0-17.0 [facility] Comment on above: Order Comment: Speci men Type: BLOOD SPECIMENOrdering Facility: [facility] Address: [address] [place] [address] Performed By: #### 5 8410-2 ####[facility]ORATORYCLIA [id number] [address] MCH (RBC) [Entitic mass] 27.8 pg Normal 26.0-34.0 [facility] Comment on above: Order Comment: Speci men Type: BLOOD SPECIMENOrdering Facility: [facility] Address: [address] [place] [address] Performed By: #### 5 8410-2 ####[facility]ORATORYCLIA [id number] [address] MCHC (RBC) [Mass/Vol] 30.2 g/dL Low 30.5-36.0 [facility] Comment on above: Order Comment: Speci men Type: BLOOD SPECIMENOrdering Facility: [facility] Address: [address] [place] [address] Performed By: #### 5 8410-2 ####[facility]ORATORYCLIA [id number] [address] MCV (RBC) [Entitic vol] 92.2 fL Normal 80.0-100.0 [facility] Comment on above: Order Comment: Speci men Type: BLOOD SPECIMENOrdering Facility: [facility] Address: [address] [place] [address] Performed By: #### 5 8410-2 ####[facility]ORATORYCLIA [id number] [address] Nucleated RBC (Bld) [#/Vol] 10*3/uL Normal <0.01 [facility] Comment on above: Order Comment: Speci men Type: BLOOD SPECIMENOrdering Facility: [facility] Address: [address] Performed By: #### 5 8410-2 ####[facility]ORATORYCLIA [id number] [address] STATES [facility] Platelet mean volume (Bld) [Entitic vol] 9.8 fL Normal 9.0-12.7 [facility] Comment on above: Order Comment: Speci men Type: BLOOD SPECIMENOrdering Facility: [facility] Address: [address] [place] [address] Performed By: #### 5 8410-2 ####[facility]ORATORYCLIA [id number] [place] [address] [place] Platelets (Bld) [#/Vol] 356 10*3/uL Normal 150-400 [facility] Comment on above: Order Comment: Speci men Type: BLOOD SPECIMENOrdering Facility: [facility] Address: [address] [place] [address] Performed By: #### 5 8410-2 ####[facility]ORATORYCLIA [id number] [address] [place] RBC (Bld) [#/Vol] 3.20 10*6/uL Low 4.20-6.00 [facility] Comment on above: Order Comment: Speci men Type: BLOOD SPECIMENOrdering Facility: [facility] Address: [address] [place] [address] Performed By: #### 5 8410-2 ####[facility]ORATORYCLIA [id number] [address] [place] WBC (Bld) [#/Vol] 9.20 10*3/uL Normal 3.70-11.00 [facility] Comment on above: Order Comment: Speci men Type: BLOOD SPECIMENOrdering Facility: [facility] Address: [address] [place] [address] Performed By: #### 5 8410-2 ####[facility]ORATORYCLIA [id number] [address] CONSULT PROGon 07-13-2021 CONSULT PROG Normal [facility] CONSULT PROG Normal [facility] CONSULT PROG Normal [facility] Magnesium SerPl-mCncon 07-13 Magnesium [Mass/Vol] 2.1 mg/dL Normal 1.7-2.3 [facility] Comment on above: Order Comment: Speci men Type: BLOOD SPECIMENOrdering Facility: [facility] Address: [address] [place] [address] Performed By: #### 1 9123-9, 2777-1, 82836-6 ####[facility]ORATORYCLIA [id number] [address] Phosphate SerPl-mCncon 07-13 Phosphate [Mass/Vol] 3.7 mg/dL Normal 2.7-4.8 [facility] Comment on above: Order Comment: Speci men Type: BLOOD SPECIMENOrdering Facility: [facility] Address: [address] [place] [address] Performed By: #### 1 9123-9, 2777-1, 73485-4 ####[facility]ORATORYCLIA [id number] [address] THERAPY NTon 07-13-2021 THERAPY NT Normal [facility] THERAPY NT Normal [facility] Vancomycin random [Mass/Vol] on 07-13-2021 Vancomycin [Mass/Vol] 31.7 ug/mL High 10.0-20.0 [facility] Comment on above: Order Comment: Speci men Type: BLOOD SPECIMENOrdering Facility: [facility] Address: [address] [place] [address] Result Comment: Refe rence ranges and high/low indicator flags are provided as general guidelines only. The treating physician must determine appropriate target levels/dosing based on the specific clinical situation. Performed By: #### 4 091-5 ####[facility]ORATORYCLIA [id number] [address] [place] aPTT PPPon 07-13-2021 aPTT Coag (PPP) [Time] 47.3 s High 23.0-32.4 [facility] Comment on above: Order Comment: Speci men Type: BLOOD SPECIMENOrdering Facility: [facility] Address: [address] [place] [address] Performed By: #### 1 4979-9 ####[facility]ORATORYCLIA [id number] [address] aPTT Coag (PPP) [Time] 51.2 s High 23.0-32.4 [facility] Comment on above: Order Comment: Speci men Type: BLOOD SPECIMENOrdering Facility: [facility] Address: [address] [place] [address] Performed By: #### 1 4979-9 ####[facility]ORATORYCLIA [id number] [address] [place] [facility] aPTT Coag (PPP) [Time] 47.5 s High 23.0-32.4 [facility] Comment on above: Order Comment: Speci men Type: BLOOD SPECIMENOrdering Facility: [facility] Address: [address] [place] [address] Performed By: #### 1 4979-9 ####[facility]ORATORYCLIA [id number] [place] [address] [place] Basic metabolic 2000 panelon 07-12-2021 Anion gap [Moles/Vol] 7 mmol/L Low 9-18 [facility] Comment on above: Order Comment: Speci men Type: BLOOD SPECIMENOrdering Facility: [facility] Address: [address] [place] [address] Performed By: #### 1 9123-9, 2777-1, 03619-2 ####[facility]ORATORYCLIA [id number] [address] [place] [facility] Calcium [Mass/Vol] 8.3 mg/dL Low 8.5-10.2 [facility] Comment on above: Order Comment: Speci men Type: BLOOD SPECIMENOrdering Facility: [facility] Address: [address] [place] [address] Performed By: #### 1 9123-9, 2777-1, 36898-1 ####[facility]ORATORYCLIA [id number] [place] [address] [place] Chloride [Moles/Vol] 101 mmol/L Normal 97-105 [facility] Comment on above: Order Comment: Speci men Type: BLOOD SPECIMENOrdering Facility: [facility] Address: [address] [place] [address] Performed By: #### 1 9123-9, 2777-1, 52888-1 ####[facility]ORATORYCLIA [id number] [place] [address] [place] CO2 [Moles/Vol] 32 mmol/L High 22-30 [facility] Comment on above: Order Comment: Speci men Type: BLOOD SPECIMENOrdering Facility: [facility] Address: [address] [place] [address] Performed By: #### 1 9123-9, 2777-, 73306-1 ####[facility]ORATORYCLIA [id number] [place] [address] [place] Creatinine [Mass/Vol] 0.70 mg/dL Low 0.73-1.22 [facility] Comment on above: Order Comment: Speci men Type: BLOOD SPECIMENOrdering Facility: [facility] Address: [address] [place] [address] Performed By: #### 1 9123-9, 2777-, 81608-2 ####[facility]ORATORYCLIA [id number] [address] [place] ESTIMATED GLOMERULAR FILTRATION RATE 100 mL/min/1.73m??? Normal >=60 [facility] Comment on above: Order Comment: Speci men Type: BLOOD SPECIMENOrdering Facility: [facility] Address: [address] [place] [address] Result Comment: Luzmaria mated Glomerular Filtration Rate [...] GFR. Performed By: #### 1 9123-9, 2777-1, 06230-6 ####[facility]ORATORYCLIA [id number] [place] [address] [place] Glucose [Mass/Vol] 104 mg/dL High 74-99 [facility] Comment on above: Order Comment: Shira feldman Type: BLOOD SPECIMENOrdering Facility: [facility] Address: [address] [place], [place] [address] Result Comment: The [place] [employer] (ADA) provides guidance for cutoff [...] Standards of Medical Care in Diabetes 2016, [place] [employer]. Diabetes Care. 2016.39(Suppl 1). Performed By: #### 1 9123-9, 2776-, 13303-0 ####[facility] LABORATORYCLIA [id number] [place] [id number] [place] Potassium [Moles/Vol] 3.7 mmol/L Normal 3.7-5.1 [facility] Comment on above: Order Comment: Shira feldman Type: BLOOD SPECIMENOrdering Facility: [facility] Address: [address] [place] [address] Performed By: #### 1 9123-9, 2777-, 96258-6 ####[facility]ORATORYCLIA [id number] [place] [address] [place] Sodium [Moles/Vol] 140 mmol/L Normal 136-144 [facility] Comment on above: Order Comment: Speci men Type: BLOOD SPECIMENOrdering Facility: [facility] Address: [address] [place] [address] Performed By: #### 1 9123-9, 2777-1, 60551-6 ####[facility]ORATORYCLIA [id number] [address] [place] [facility] Urea nitrogen [Mass/Vol] 12 mg/dL Normal 9-24 [facility] Comment on above: Order Comment: Speci men Type: BLOOD SPECIMENOrdering Facility: [facility] Address: [address] [place] [address] Performed By: #### 1 9123-9, 2777-, 98191-1 ####[facility]ORATORYCLIA [id number] [address] [place] [facility] CBC panel Auto (Bld)on 07-12 Erythrocyte distribution width (RBC) [Ratio] 16.1 % High 11.5-15.0 [facility] Comment on above: Order Comment: Speci men Type: BLOOD SPECIMENOrdering Facility: [facility] Address: [address] [place] [address] Performed By: #### 5 8410-2 ####[facility]ORATORYCLIA [id number] [address] [place] Hematocrit (Bld) [Volume fraction] 28.2 % Low 39.0-51.0 [facility] Comment on above: Order Comment: Speci men Type: BLOOD SPECIMENOrdering Facility: [facility] Address: [address] [place] [address] Performed By: #### 5 8410-2 ####[facility]ORATORYCLIA [id number] [address] [place] [facility] Hemoglobin (Bld) [Mass/Vol] 8.5 g/dL Low 13.0-17.0 [facility] Comment on above: Order Comment: Speci men Type: BLOOD SPECIMENOrdering Facility: [facility] Address: [address] [place] [address] Performed By: #### 5 8410-2 ####[facility]ORATORYCLIA [id number] [address] MCH (RBC) [Entitic mass] 26.8 pg Normal 26.0-34.0 [facility] Comment on above: Order Comment: Speci men Type: BLOOD SPECIMENOrdering Facility: [facility] Address: [address] [place] [address] Performed By: #### 5 8410-2 ####[facility]ORATORYCLIA [id number] [address] MCHC (RBC) [Mass/Vol] 30.1 g/dL Low 30.5-36.0 [facility] Comment on above: Order Comment: Speci men Type: BLOOD SPECIMENOrdering Facility: [facility] Address: [address] [place] [address] Performed By: #### 5 8410-2 ####[facility]ORATORYCLIA [id number] [address] MCV (RBC) [Entitic vol] 89.0 fL Normal 80.0-100.0 [facility] Comment on above: Order Comment: Speci men Type: BLOOD SPECIMENOrdering Facility: [facility] Address: [address] [place] [address] Performed By: #### 5 8410-2 ####[facility]ORATORYCLIA [id number] [address] Nucleated RBC (Bld) [#/Vol] 10*3/uL Normal <0.01 [facility] Comment on above: Order Comment: Speci men Type: BLOOD SPECIMENOrdering Facility: [facility] Address: [address] [place] [address] Performed By: #### 5 8410-2 ####[facility]ORATORYCLIA [id number] [address] Platelet mean volume (Bld) [Entitic vol] 9.6 fL Normal 9.0-12.7 [facility] Comment on above: Order Comment: Speci men Type: BLOOD SPECIMENOrdering Facility: [facility] Address: [address] [place] [address] Performed By: #### 5 8410-2 ####[facility]ORATORYCLIA [id number] [address] [facility] Platelets (Bld) [#/Vol] 340 10*3/uL Normal 150-400 [facility] Comment on above: Order Comment: Speci men Type: BLOOD SPECIMENOrdering Facility: [facility] Address: [address] [place] [address] Performed By: #### 5 8410-2 ####[facility]ORATORYCLIA [id number] [address] [place] RBC (Bld) [#/Vol] 3.17 10*6/uL Low 4.20-6.00 [facility] Comment on above: Order Comment: Speci men Type: BLOOD SPECIMENOrdering Facility: [facility] Address: [address] [place] [address] Performed By: #### 5 8410-2 ####[facility]ORATORYCLIA [id number] [address] [facility] WBC (Bld) [#/Vol] 8.66 10*3/uL Normal 3.70-11.00 [facility] Comment on above: Order Comment: Speci men Type: BLOOD SPECIMENOrdering Facility: [facility] Address: [address] [place] [address] Performed By: #### 5 8410-2 ####[facility]ORATORYCLIA [id number] [address] [place] CONSULTon 07-12-2021 CONSULT Normal [facility] CONSULT PROGon 07-12-2021 CONSULT PROG Normal [facility] Magnesium SerPl-mCncon 07-12 Magnesium [Mass/Vol] 2.1 mg/dL Normal 1.7-2.3 [facility] Comment on above: Order Comment: Speci men Type: BLOOD SPECIMENOrdering Facility: [facility] Address: [address] [place] [address] Performed By: #### 1 9123-9, 2777-1, 37110-7 ####[facility]ATORYCLIA [id number] [address] [facility] NURSING PROGon 07-12-2021 NURSING PROG Normal [facility] Phosphate SerPl-mCncon 07-12 Phosphate [Mass/Vol] 3.1 mg/dL Normal 2.7-4.8 [facility] Comment on above: Order Comment: Speci men Type: BLOOD SPECIMENOrdering Facility: [facility] Address: [address] [place] [address] Performed By: #### 1 9123-9, 2777, 81616-4 ####[facility]ORATORYCLIA [id number] [address] THERAPY NTon 07-12-2021 THERAPY NT Normal [facility] aPTT PPPon 07-12-2021 aPTT Coag (PPP) [Time] 49.5 s High 23.0-32.4 [facility] Comment on above: Order Comment: Speci men Type: BLOOD SPECIMENOrdering Facility: [facility] Address: [address] [place] [address] Performed By: #### 1 4979-9 ####[facility] LABORATORYCLIA [id number] [address] [place] aPTT Coag (PPP) [Time] 68.0 s High 23.0-32.4 [facility] Comment on above: Order Comment: Speci men Type: BLOOD SPECIMENOrdering Facility: [facility] Address: [address] [place] [address] Performed By: #### 1 4979-9 ####[facility] LABORATORYCLIA [id number] [address] aPTT Coag (PPP) [Time] 80.0 s High 23.0-32.4 [facility] Comment on above: Order Comment: Speci men Type: BLOOD SPECIMENOrdering Facility: [facility] Address: [address] [place] [address] Performed By: #### 1 4979-9 ####[facility] LABORATORYCLIA [id number] [address] [place] CASE MGT INIT ASSESon 2021 CASE MGT INIT ASSES Normal [facility] CBC panel Auto (Bld)on 07-11 Erythrocyte distribution width (RBC) [Ratio] 16.3 % High 11.5-15.0 [facility] Comment on above: Order Comment: Speci men Type: BLOOD SPECIMENOrdering Facility: [facility] Address: [address] [place] [address] Performed By: #### 5 8410-2 ####[facility] LABORATORYCLIA [id number] [address] STATES [facility] Hematocrit (Bld) [Volume fraction] 28.3 % Low 39.0-51.0 [facility] Comment on above: Order Comment: Speci men Type: BLOOD SPECIMENOrdering Facility: [facility] Address: [address] [place] [address] Performed By: #### 5 8410-2 ####[facility] LABORATORYCLIA [id number] [address] [place] Hemoglobin (Bld) [Mass/Vol] 8.8 g/dL Low 13.0-17.0 [facility] Comment on above: Order Comment: Speci men Type: BLOOD SPECIMENOrdering Facility: [facility] Address: [address] [place] [address] Performed By: #### 5 8410-2 ####[facility] LABORATORYCLIA [id number] [address] [place] MCH (RBC) [Entitic mass] 27.4 pg Normal 26.0-34.0 [facility] Comment on above: Order Comment: Speci men Type: BLOOD SPECIMENOrdering Facility: [facility] Address: [address] [place] [address] Performed By: #### 5 8410-2 ####[facility] LABORATORYCLIA [id number] [address] MCHC (RBC) [Mass/Vol] 31.1 g/dL Normal 30.5-36.0 [facility] Comment on above: Order Comment: Speci men Type: BLOOD SPECIMENOrdering Facility: [facility] Address: [address] [place] [address] Performed By: #### 5 8410-2 ####[facility]ORATORYCLIA [id number] [address] MCV (RBC) [Entitic vol] 88.2 fL Normal 80.0-100.0 [facility] Comment on above: Order Comment: Speci men Type: BLOOD SPECIMENOrdering Facility: [facility] Address: [address] [place] [address] Performed By: #### 5 8410-2 ####[facility] LABORATORYCLIA [id number] [address] Nucleated RBC (Bld) [#/Vol] 10*3/uL Normal <0.01 [facility] Comment on above: Order Comment: Speci men Type: BLOOD SPECIMENOrdering Facility: [facility] Address: [address] [place] [address] Performed By: #### 5 8410-2 ####[facility]ORATORYCLIA [id number] [address] Platelet mean volume (Bld) [Entitic vol] 9.7 fL Normal 9.0-12.7 [facility] Comment on above: Order Comment: Speci men Type: BLOOD SPECIMENOrdering Facility: [facility] Address: [address] [place] [address] Performed By: #### 5 8410-2 ####[facility]ORATORYCLIA [id number] [address] STATES [facility] Platelets (Bld) [#/Vol] 315 10*3/uL Normal 150-400 [facility] Comment on above: Order Comment: Speci men Type: BLOOD SPECIMENOrdering Facility: [facility] Address: [address] [place] [address] Performed By: #### 5 8410-2 ####[facility] LABORATORYCLIA [id number] [place] [address] [place] RBC (Bld) [#/Vol] 3.21 10*6/uL Low 4.20-6.00 [facility] Comment on above: Order Comment: Speci men Type: BLOOD SPECIMENOrdering Facility: [facility] Address: [address] [place] [address] Performed By: #### 5 8410-2 ####[facility] LABORATORYCLIA [id number] [address] OF [facility] WBC (Bld) [#/Vol] 9.18 10*3/uL Normal 3.70-11.00 [facility] Comment on above: Order Comment: Speci men Type: BLOOD SPECIMENOrdering Facility: [facility] Address: [address] [place] [address] Performed By: #### 5 8410-2 ####[facility] LABORATORYCLIA [id number] [address] [place] CONSULT PROGon 07-11-2021 CONSULT PROG Normal [facility] CT BRAIN WO IVCONon 07-12-[address] BRAIN WO IVCON Normal [facility] Magnesium SerPl-mCncon 07-11 Magnesium [Mass/Vol] 2.1 mg/dL Normal 1.7-2.3 [facility] Comment on above: Order Comment: Speci men Type: BLOOD SPECIMENOrdering Facility: [facility] Address: [address] [place] [address] Performed By: #### 1 9123-9, 2777-1 ####[facility]ORATORYCLIA [id number] [address] NURSING PROGon 07-11-2021 NURSING PROG Normal [facility] NURSING PROG Normal [facility] Phosphate SerPl-mCncon 07-11 Phosphate [Mass/Vol] 3.4 mg/dL Normal 2.7-4.8 [facility] Comment on above: Order Comment: Speci men Type: BLOOD SPECIMENOrdering Facility: [facility] Address: [address] [place] [address] Performed By: #### 1 9123-9, 2777-1 ####[facility]ORATORYCLIA [id number] [address] THERAPY NTon 07-11-2021 THERAPY NT Normal [facility] Vancomycin random [Mass/Vol] on 07-11-2021 Vancomycin [Mass/Vol] 28.6 ug/mL High 10.0-20.0 [facility] Comment on above: Order Comment: Speci men Type: BLOOD SPECIMENOrdering Facility: [facility] Address: [address] [place] [address] Result Comment: Refe rence ranges and high/low indicator flags are provided as general guidelines only. The treating physician must determine appropriate target levels/dosing based on the specific clinical situation. Performed By: #### 4 091-5 ####[facility]ORATORYCLIA [id number] [address] aPTT PPPon 07-11-2021 aPTT Coag (PPP) [Time] 62.0 s High 23.0-32.4 [facility] Comment on above: Order Comment: Speci men Type: BLOOD SPECIMENOrdering Facility: [facility] Address: [address] [place] [address] Performed By: #### 1 4979-9 ####[facility]ORATORYCLIA [id number] [address] aPTT Coag (PPP) [Time] 52.7 s High 23.0-32.4 [facility] Comment on above: Order Comment: Speci men Type: BLOOD SPECIMENOrdering Facility: [facility] Address: [address] [place] [address] Performed By: #### 1 4979-9 ####[facility]ORATORYCLIA [id number] [address] [place] aPTT Coag (PPP) [Time] 29.9 s Normal 23.0-32.4 [facility] Comment on above: Order Comment: Speci men Type: BLOOD SPECIMENOrdering Facility: [facility] Address: [address] [place] [address] Performed By: #### 1 4979-9 ####[facility]ORATORYCLIA [id number] [place] [address] [place] Basic metabolic 2000 panelon 07-10-2021 Anion gap [Moles/Vol] 14 mmol/L Normal 9-18 [facility] Comment on above: Order Comment: Speci men Type: BLOOD SPECIMENOrdering Facility: [facility] Address: [address] [place] [address] Performed By: #### 1 9123-9, 2777-1, 33585-5 ####[facility]CLIA [id number] [place] [address] [place] Calcium [Mass/Vol] 8.5 mg/dL Normal 8.5-10.2 [facility] Comment on above: Order Comment: Speci men Type: BLOOD SPECIMENOrdering Facility: [facility] Address: [address] [place] [address] Performed By: #### 1 9123-9, 2777-1, 63415-2 ####[facility]ORATORYCLIA [id number] [place] [address] [place] Chloride [Moles/Vol] 100 mmol/L Normal 97-105 [facility] Comment on above: Order Comment: Speci men Type: BLOOD SPECIMENOrdering Facility: [facility] Address: [address] [place] [address] Performed By: #### 1 9123-9, 2777, 40008-1 ####[facility]ORATORYCLIA [id number] [address] STATES [place] [facility] CO2 [Moles/Vol] 27 mmol/L Normal 22-30 [facility] Comment on above: Order Comment: Speci men Type: BLOOD SPECIMENOrdering Facility: [facility] Address: [address] [place] [address] Performed By: #### 1 9123-9, 27711-04, 07011-4 ####[facility]ORATORYCLIA [id number] [address] [place] [facility] Creatinine [Mass/Vol] 0.66 mg/dL Low 0.73-1.22 [facility] Comment on above: Order Comment: Speci men Type: BLOOD SPECIMENOrdering Facility: [facility] Address: [address] [place] [address] Performed By: #### 1 9123-9, 27711-04, ####[facility]ITALCLIA [id number] [address] ESTIMATED GLOMERULAR FILTRATION RATE 102 mL/min/1.73m??? Normal >=60 [facility] Comment on above: Order Comment: Speci men Type: BLOOD SPECIMENOrdering Facility: [facility] Address: [address] [place] [address] Result Comment: Luzmaria mated Glomerular Filtration Rate [...] GFR. Performed By: #### 1 9123-9, 2777-, 37039-5 ####[facility]ORATORYCLIA [id number] [address] [place] Glucose [Mass/Vol] 93 mg/dL Normal 74-99 [facility] Comment on above: Order Comment: Speci men Type: BLOOD SPECIMENOrdering Facility: [facility] Address: [address] [place], [place] [address] Result Comment: The [place] [employer] (ADA) provides guidance for cutoff [...] Standards of Medical Care in Diabetes 2016, [place] [employer]. Diabetes Care. 2016.39(Suppl 1). Performed By: #### 1 9123-9, 2777-1, 37849-7 ####[facility]ORATORYCLIA [id number] [place] [address] [place] Potassium [Moles/Vol] 3.5 mmol/L Low 3.7-5.1 [facility] Comment on above: Order Comment: Shira [facility] Type: BLOOD SPECIMENOrdering Facility: [facility] Address: [address] [place], [place] [address] Performed By: #### 1 9123-9, 2777-, 61929-9 ####[facility]ORATORYCLIA [id number] [place] [address] [place] Sodium [Moles/Vol] 141 mmol/L Normal 136-144 [facility] Comment on above: Order Comment: Speci men Type: BLOOD SPECIMENOrdering Facility: [facility] Address: [address] [place], [place] [address] Performed By: #### 1 9123-9, 2777-, 76644-3 ####[facility]ORATORYCLIA [id number] [place] [address] [place] Urea nitrogen [Mass/Vol] 11 mg/dL Normal 9-24 [facility] Comment on above: Order Comment: Speci men Type: BLOOD SPECIMENOrdering Facility: [facility] Address: [address] [place] [address] Performed By: #### 1 9123-9, 2777-1, 61388-1 ####[facility]ORATORYCLIA [id number] [address] CBC panel Auto (Bld)on 07-10 Erythrocyte distribution width (RBC) [Ratio] 16.2 % High 11.5-15.0 [facility] Comment on above: Order Comment: Speci men Type: BLOOD SPECIMENOrdering Facility: [facility] Address: [address] [place] [address] Performed By: #### 5 8410-2 ####[facility]ORATORYCLIA [id number] [address] Hematocrit (Bld) [Volume fraction] 30.6 % Low 39.0-51.0 [facility] Comment on above: Order Comment: Speci men Type: BLOOD SPECIMENOrdering Facility: [facility] Address: [address] [place] [address] Performed By: #### 5 8410-2 ####[facility]ORATORYCLIA [id number] [address] Hemoglobin (Bld) [Mass/Vol] 9.6 g/dL Low 13.0-17.0 [facility] Comment on above: Order Comment: Speci men Type: BLOOD SPECIMENOrdering Facility: [facility] Address: [address] [place] [address] Performed By: #### 5 8410-2 ####[facility]ORATORYCLIA [id number] [address] MCH (RBC) [Entitic mass] 28.3 pg Normal 26.0-34.0 [facility] Comment on above: Order Comment: Speci men Type: BLOOD SPECIMENOrdering Facility: [facility] Address: [address] [place] [address] Performed By: #### 5 8410-2 ####[facility]ORATORYCLIA [id number] [address] [place] [facility] MCHC (RBC) [Mass/Vol] 31.4 g/dL Normal 30.5-36.0 [facility] Comment on above: Order Comment: Speci men Type: BLOOD SPECIMENOrdering Facility: [facility] Address: [address] [place] [address] Performed By: #### 5 8410-2 ####[facility]ORATORYCLIA [id number] [address] [place] [facility] MCV (RBC) [Entitic vol] 90.3 fL Normal 80.0-100.0 [facility] Comment on above: Order Comment: Speci men Type: BLOOD SPECIMENOrdering Facility: [facility] Address: [address] [place] [address] Performed By: #### 5 8410-2 ####[facility]ORATORYCLIA [id number] [address] Nucleated RBC (Bld) [#/Vol] 10*3/uL Normal <0.01 [facility] Comment on above: Order Comment: Speci men Type: BLOOD SPECIMENOrdering Facility: [facility] Address: [address] [place] [address] Performed By: #### 5 8410-2 ####[facility]ORATORYCLIA [id number] [address] [place] Platelet mean volume (Bld) [Entitic vol] 9.7 fL Normal 9.0-12.7 [facility] Comment on above: Order Comment: Speci men Type: BLOOD SPECIMENOrdering Facility: [facility] Address: [address] [place] [address] Performed By: #### 5 8410-2 ####[facility]ORATORYCLIA [id number] [address] [place] Platelets (Bld) [#/Vol] 306 10*3/uL Normal 150-400 [facility] Comment on above: Order Comment: Speci men Type: BLOOD SPECIMENOrdering Facility: [facility] Address: [address] [place] [address] Performed By: #### 5 8410-2 ####[facility]ORATORYCLIA [id number] [address] OF [facility] RBC (Bld) [#/Vol] 3.39 10*6/uL Low 4.20-6.00 [facility] Comment on above: Order Comment: Speci men Type: BLOOD SPECIMENOrdering Facility: [facility] Address: [address] [place] [address] Performed By: #### 5 8410-2 ####[facility]ORATORYCLIA [id number] [address] WBC (Bld) [#/Vol] 9.81 10*3/uL Normal 3.70-11.00 [facility] Comment on above: Order Comment: Speci men Type: BLOOD SPECIMENOrdering Facility: [facility] Address: [address] [place] [address] Performed By: #### 5 8410-2 ####[facility]ORATORYCLIA [id number] [address] [place] CONSULTon 07-10-2021 CONSULT Normal [facility] CONSULT Normal [facility] Magnesium SerPl-mCncon 07-10 Magnesium [Mass/Vol] 1.9 mg/dL Normal 1.7-2.3 [facility] Comment on above: Order Comment: Speci men Type: BLOOD SPECIMENOrdering Facility: [facility] Address: [address] [place] [address] Performed By: #### 1 9123-9, 2777-1, 67841-2 ####[facility]ORATORYCLIA [id number] [address] [place] NURSING PROGon 07-10-2021 NURSING PROG Normal [facility] NURSING PROG Normal [facility] NUTRITIONon 07-10-2021 NUTRITION Normal [facility] Phosphate SerPl-mCncon 07-10 Phosphate [Mass/Vol] 3.6 mg/dL Normal 2.7-4.8 [facility] Comment on above: Order Comment: Speci men Type: BLOOD SPECIMENOrdering Facility: [facility] Address: [address] [place] [address] Performed By: #### 1 9123-9, 2777-1, 15541-9 ####[facility]ORATORYCLIA [id number] [address] [place] US DVT LOWER BILon US DVT LOWER RAINER Normal [facility] aPTT PPPon 07-10-2021 aPTT Coag (PPP) [Time] 28.8 s Normal 23.0-32.4 [facility] Comment on above: Order Comment: Speci men Type: BLOOD SPECIMENOrdering Facility: [facility] Address: [address] [place] [address] Performed By: #### 1 4979-9 ####[facility]ORATORYCLIA [id number] [address] aPTT Coag (PPP) [Time] 28.4 s Normal 23.0-32.4 [facility] Comment on above: Order Comment: Speci men Type: BLOOD SPECIMENOrdering Facility: [facility] Address: [address] [place] [address] Performed By: #### 1 4979-9 ####[facility]ORATORYCLIA [id number] [address] [place] ALLIED HEALTHon 07-09-2021 ALLIED HEALTH Normal [facility] Basic metabolic 2000 panelon 07-09-2021 Anion gap [Moles/Vol] 9 mmol/L Normal 9-18 [facility] Comment on above: Order Comment: Speci men Type: BLOOD SPECIMENOrdering Facility: [facility] Address: [address] [place] [address] Performed By: #### 1 9123-9, 2777-1, 50922-0 ####[facility]ORATORYCLIA [id number] [place] [address] [place] Calcium [Mass/Vol] 8.3 mg/dL Low 8.5-10.2 [facility] Comment on above: Order Comment: Speci men Type: BLOOD SPECIMENOrdering Facility: [facility] Address: [address] [place] [address] Performed By: #### 1 9123-9, 2777-1, 11041-5 ####[facility]ORATORYCLIA [id number] [place] [address] [place] Chloride [Moles/Vol] 100 mmol/L Normal 97-105 [facility] Comment on above: Order Comment: Speci men Type: BLOOD SPECIMENOrdering Facility: [facility] Address: [address] [place] [address] Performed By: #### 1 9123-9, 27711-04, 71212-9 ####[facility]ORATORYCLIA [id number] [address] [place] CO2 [Moles/Vol] 29 mmol/L Normal 22-30 [facility] Comment on above: Order Comment: Speci men Type: BLOOD SPECIMENOrdering Facility: [facility] Address: [address] [place] [address] Performed By: #### 1 9123-9, 27711-04, 66815-1 ####[facility]ORATORYCLIA [id number] [place] [address] [place] Creatinine [Mass/Vol] 0.61 mg/dL Low 0.73-1.22 [facility] Comment on above: Order Comment: Speci men Type: BLOOD SPECIMENOrdering Facility: [facility] Address: [address] [place] [address] Performed By: #### 1 9123-9, 2777-1, 26761-8 ####[facility]ORATORYCLIA [id number] [address] [facility] ESTIMATED GLOMERULAR FILTRATION RATE 104 mL/min/1.73m??? Normal >=60 [facility] Comment on above: Order Comment: Shira feldman Type: BLOOD SPECIMENOrdering Facility: [facility] Address: [address] [place], [place] [address] Result Comment: Luzmaria mated Glomerular Filtration Rate [...] GFR. Performed By: #### 1 9123-9, 2777-1, 52522-2 ####[facility]ITALCLIA [id number] [place] [address] [place] Glucose [Mass/Vol] 106 mg/dL High 74-99 [facility] Comment on above: Order Comment: Shira feldman Type: BLOOD SPECIMENOrdering Facility: [facility] Address: [address] [place] [address] Result Comment: The [place] Diabetes [employer] (ADA) provides guidance for cutoff [...] Standards of Medical Care in Diabetes 2016, [place] [employer]. Diabetes Care. 2016.39(Suppl 1). Performed By: #### 1 9123-9, 2777-1, 69466-4 ####[facility] LABORATORYCLIA [id number] [place] [address] [place] Potassium [Moles/Vol] 3.6 mmol/L Low 3.7-5.1 [facility] Comment on above: Order Comment: Shira feldman Type: BLOOD SPECIMENOrdering Facility: [facility] Address: [address] [place] [address] Performed By: #### 1 9123-9, 2777-1, 75768-9 ####[facility]ORATORYCLIA [id number] [address] Sodium [Moles/Vol] 138 mmol/L Normal 136-144 [facility] Comment on above: Order Comment: Speci men Type: BLOOD SPECIMENOrdering Facility: [facility] Address: [address] [place] [address] Performed By: #### 1 9123-9, 2777, 22850-1 ####[facility]ORATORYCLIA [id number] [address] Urea nitrogen [Mass/Vol] 12 mg/dL Normal 9-24 [facility] Comment on above: Order Comment: Speci men Type: BLOOD SPECIMENOrdering Facility: [facility] Address: [address] [place] [address] Performed By: #### 1 9123-9, 2777, 93310-9 ####[facility] LABORATORYCLIA [id number] [address] CBC panel Auto (Bld)on 07-09 Erythrocyte distribution width (RBC) [Ratio] 16.2 % High 11.5-15.0 [facility] Comment on above: Order Comment: Speci men Type: BLOOD SPECIMENOrdering Facility: [facility] Address: [address] [place] [address] Performed By: #### 5 8410-2 ####[facility]ORATORYCLIA [id number] [address] Hematocrit (Bld) [Volume fraction] 29.0 % Low 39.0-51.0 [facility] Comment on above: Order Comment: Speci men Type: BLOOD SPECIMENOrdering Facility: [facility] Address: [address] [place] [address] Performed By: #### 5 8410-2 ####[facility] LABORATORYCLIA [id number] [address] [facility] Hemoglobin (Bld) [Mass/Vol] 8.8 g/dL Low 13.0-17.0 [facility] Comment on above: Order Comment: Speci men Type: BLOOD SPECIMENOrdering Facility: [facility] Address: [address] [place] [address] Performed By: #### 5 8410-2 ####[facility]ORATORYCLIA [id number] [address] MCH (RBC) [Entitic mass] 27.0 pg Normal 26.0-34.0 [facility] Comment on above: Order Comment: Speci men Type: BLOOD SPECIMENOrdering Facility: [facility] Address: [address] [place] [address] Performed By: #### 5 8410-2 ####[facility]ORATORYCLIA [id number] [address] MCHC (RBC) [Mass/Vol] 30.3 g/dL Low 30.5-36.0 [facility] Comment on above: Order Comment: Speci men Type: BLOOD SPECIMENOrdering Facility: [facility] Address: [address] [place] [address] Performed By: #### 5 8410-2 ####[facility]ORATORYCLIA [id number] [address] MCV (RBC) [Entitic vol] 89.0 fL Normal 80.0-100.0 [facility] Comment on above: Order Comment: Speci men Type: BLOOD SPECIMENOrdering Facility: [facility] Address: [address] [place] [address] Performed By: #### 5 8410-2 ####[facility] LABORATORYCLIA [id number] Nucleated RBC (Bld) [#/Vol] 10*3/uL Normal <0.01 [facility] Comment on above: Order Comment: Speci men Type: BLOOD SPECIMENOrdering Facility: [facility] Address: [address] [place] [address] Performed By: #### 5 8410-2 ####[facility] LABORATORYCLIA [id number] Platelet mean volume (Bld) [Entitic vol] 9.8 fL Normal 9.0-12.7 [facility] Comment on above: Order Comment: Speci men Type: BLOOD SPECIMENOrdering Facility: [facility] Address: [address] [place] [address] Performed By: #### 5 8410-2 ####[facility] LABORATORYCLIA [id number] [address] [place] Platelets (Bld) [#/Vol] 281 10*3/uL Normal 150-400 [facility] Comment on above: Order Comment: Speci men Type: BLOOD SPECIMENOrdering Facility: [facility] Address: [address] [place] [address] Performed By: #### 5 8410-2 ####[facility] LABORATORYCLIA [id number] [address] [place] RBC (Bld) [#/Vol] 3.26 10*6/uL Low 4.20-6.00 [facility] Comment on above: Order Comment: Speci men Type: BLOOD SPECIMENOrdering Facility: [facility] Address: [address] [place], [place] [address] Performed By: #### 5 8410-2 ####[facility] LABORATORYCLIA [id number] [address] [place] WBC (Bld) [#/Vol] 9.12 10*3/uL Normal 3.70-11.00 [facility] Comment on above: Order Comment: Speci men Type: BLOOD SPECIMENOrdering Facility: [facility] Address: [address] [place] [address] Performed By: #### 5 8410-2 ####[facility] LABORATORYCLIA [id number] [address] [place] CONSULT PROGon 07-09-2021 CONSULT PROG Normal [facility] CONSULT PROG Normal [facility] HISTORY PHYSICALon HISTORY PHYSICAL Normal [facility] Magnesium SerPl-mCncon 07-09 Magnesium [Mass/Vol] 1.9 mg/dL Normal 1.7-2.3 [facility] Comment on above: Order Comment: Speci men Type: BLOOD SPECIMENOrdering Facility: [facility] Address: [address] [place] [address] Performed By: #### 1 9123-9, 2777-1, 34147-2 ####[facility]ORATORYCLIA [id number] [address] Phosphate SerPl-mCncon 07-09 Phosphate [Mass/Vol] 3.6 mg/dL Normal 2.7-4.8 [facility] Comment on above: Order Comment: Speci men Type: BLOOD SPECIMENOrdering Facility: [facility] Address: [address] [place] [address] Performed By: #### 1 9123-9, 2777-1, 73263-5 ####[facility]ORATORYCLIA [id number] [address] THERAPY NTon 07-09-2021 THERAPY NT Normal [...] on above: Performed By: #### 6 00-7 ####[facility]ORATORYCLIA [id number] [address] Bacteria identified Cx Nom (Bld) CULTURE, BLOOD: No growth 5 days [facility] Comment on above: Performed By: #### 6 00-7 ####[facility]ORATORYCLIA [id number] [address] Bacteria CSF Culton 07-09-19 22 Bacteria identified Cx Nom (CSF) CULTURE, CSF: No growth 14 days GRAM STAIN: No organisms seen No Polymorphonuclear Leukocytes Few Red Blood Cells Gram stain performed on cytospun specimen. Normal [facility] Comment on above: Performed By: #### 6 06-4 ####[facility]ORATORYCLIA [id number] [address] Bacteria Ur Culton 2 Bacteria identified Cx Nom (U) ORGANISM ID: 1 10,000 -<50,000 CFU/ml Proteus species Insignificant colony count. No further workup. ORGANISM ID: 2 <10,000 CFU/ml Normal urogenital chris [facility] Comment on above: Performed By: #### 6 30-4 ####[facility]ORATORYCLIA [id number] [address] Bacteria Wnd Culton 07-09-19 22 Bacteria identified Cx Nom (Wound) ORGANISM ID: 1 Coagulase negative staphylococcus Growth in Enrichment Broth Only No susceptibility testing done. Call lab within 72 hours to initiate work-up if clinically indicated. GRAM STAIN: Account credited. Not performed on this specimen type. Normal [facility] Comment on above: Performed By: #### 6 462-6 ####[facility]ORATORYCLIA [id number] [address] Bacteria identified Cx Nom (Wound) ORGANISM ID: 1 Rare Coagulase negative staphylococcus No susceptibility testing done. Call lab within 72 hours to initiate work-up if clinically indicated. GRAM STAIN: Account credited. Not performed on this specimen type. [facility] Comment on above: Performed By: #### 6 462-6 ####[facility] LABORATORYCLIA [id number] [place] [address] Bacteria identified Cx Nom (Wound) CULTURE, INTRAOPERATIVE HARDWARE: No growth 14 days GRAM STAIN: Account credited. Not performed on this specimen type. Normal [facility] Comment on above: Performed By: #### 6 462-6 ####[facility]ORATORYCLIA [id number] [place] [address] [place] Basic metabolic 2000 panelon 07-08-2021 Anion gap [Moles/Vol] 9 mmol/L Normal 9-18 [facility] Comment on above: Order Comment: Speci men Type: BLOOD SPECIMENOrdering Facility: [facility] Address: [address] [place] [address] Performed By: #### 2 4321-2 ####[facility]ORATORYCLIA [id number] [place] [address] [place] Calcium [Mass/Vol] 8.5 mg/dL Normal 8.5-10.2 [facility] Comment on above: Order Comment: Speci men Type: BLOOD SPECIMENOrdering Facility: [facility] Address: [address] [place] [address] Performed By: #### 2 4321-2 ####[facility]ORATORYCLIA [id number] [address] [place] Chloride [Moles/Vol] 98 mmol/L Normal 97-105 [facility] Comment on above: Order Comment: Speci men Type: BLOOD SPECIMENOrdering Facility: [facility] Address: [address] [place] [address] Performed By: #### 2 4321-2 ####[facility]ORATORYCLIA [id number] [place] [address] [place] CO2 [Moles/Vol] 31 mmol/L High 22-30 [facility] Comment on above: Order Comment: Speci men Type: BLOOD SPECIMENOrdering Facility: [facility] Address: [facility] [place] [address] Performed By: #### 2 4321-2 ####[facility]ORATORYCLIA [id number] [address] [place] Creatinine [Mass/Vol] 0.64 mg/dL Low 0.73-1.22 [facility] Comment on above: Order Comment: Shira feldman Type: BLOOD SPECIMENOrdering Facility: [facility] Address: [address] [place] [address] Performed By: #### 2 4321-2 ####[facility] LABORATORYIA [id number] [address] ESTIMATED GLOMERULAR FILTRATION RATE 102 mL/min/1.73m??? Normal >=60 [facility] Comment on above: Order Comment: Shira feldman Type: BLOOD SPECIMENOrdering Facility: [facility] Address: [address] [place] [address] Result Comment: Luzmaria mated Glomerular Filtration Rate [...] GFR. Performed By: #### 2 4321-2 ####[facility]ITALIA [id number] [address] [place] Glucose [Mass/Vol] 114 mg/dL High 74-99 [facility] Comment on above: Order Comment: Shira feldman Type: BLOOD SPECIMENOrdering Facility: [facility] Address: [address] [place] [address] Result Comment: The [place] Diabetes Association (ADA) provides guidance for cutoff [...] Standards of Medical Care in Diabetes 2016, [place] [employer]. Diabetes Care. 2016.39(Suppl 1). Performed By: #### 2 4321-2 ####[facility]ORATORYCLIA [id number] [address] [place] Potassium [Moles/Vol] 3.4 mmol/L Low 3.7-5.1 [facility] Comment on above: Order Comment: Speci men Type: BLOOD SPECIMENOrdering Facility: [facility] Address: [address] [place] [address] Performed By: #### 2 4321-2 ####[facility]ORATORYCLIA [id number] [address] STATES [facility] Sodium [Moles/Vol] 138 mmol/L Normal 136-144 [facility] Comment on above: Order Comment: Speci men Type: BLOOD SPECIMENOrdering Facility: [facility] Address: [address] [place] [address] Performed By: #### 2 4321-2 ####[facility]ORATORYCLIA [id number] [address] STATES [facility] Urea nitrogen [Mass/Vol] 14 mg/dL Normal 9-24 [facility] Comment on above: Order Comment: Speci men Type: BLOOD SPECIMENOrdering Facility: [facility] Address: [address] [place] [address] Performed By: #### 2 4321-2 ####[facility]ATORYCLIA [id number] [address] [place] CBC W Auto Differential pane l (Bld)on 07-08-2021 Basophils (Bld) [#/Vol] 0.05 10*3/uL Normal <0.11 [facility] Comment on above: Order Comment: Speci men Type: BLOOD SPECIMENOrdering Facility: [facility] Address: [address] [place] [address] Performed By: #### 5 7021-8 ####[facility]ORATORYCLIA [id number] [address] [place] Basophils/100 WBC (Bld) 0.4 % Normal [facility] Comment on above: Order Comment: Speci men Type: BLOOD SPECIMENOrdering Facility: [facility] Address: [address] [place] [address] Performed By: #### 5 7021-8 ####[facility]ORATORYCLIA [id number] [address] [place] Differential cell count method Nom (Bld) Auto Normal [facility] Comment on above: Order Comment: Speci men Type: BLOOD SPECIMENOrdering Facility: [facility] Address: [address] [place] [address] Performed By: #### 5 7021-8 ####[facility]ORATORYCLIA [id number] [address] [place] Eosinophils (Bld) [#/Vol] 0.68 10*3/uL High <0.46 [facility] Comment on above: Order Comment: Speci men Type: BLOOD SPECIMENOrdering Facility: [facility] Address: [address] [place] [address] Performed By: #### 5 7021-8 ####[facility]ORATORYCLIA [id number] [address] [place] Eosinophils/100 WBC (Bld) 5.4 % Normal [facility] Comment on above: Order Comment: Speci men Type: BLOOD SPECIMENOrdering Facility: [facility] Address: [address] [place] [address] Performed By: #### 5 7021-8 ####[facility]ORATORYCLIA [id number] [address] [place] Erythrocyte distribution width (RBC) [Ratio] 16.3 % High 11.5-15.0 [facility] Comment on above: Order Comment: Speci men Type: BLOOD SPECIMENOrdering Facility: [facility] Address: [address] [place] [address] Performed By: #### 5 7021-8 ####[facility]ORATORYCLIA [id number] [address] Hematocrit (Bld) [Volume fraction] 35.7 % Low 39.0-51.0 [facility] Comment on above: Order Comment: Speci men Type: BLOOD SPECIMENOrdering Facility: [facility] Address: [address] [place] [address] Performed By: #### 5 7021-8 ####[facility]ORATORYCLIA [id number] [address] Hemoglobin (Bld) [Mass/Vol] 10.8 g/dL Low 13.0-17.0 [facility] Comment on above: Order Comment: Speci men Type: BLOOD SPECIMENOrdering Facility: [facility] Address: [address] [place] [address] Performed By: #### 5 7021-8 ####[facility]ORATORYCLIA [id number] [address] IMMATURE GRAN % 0.4 % Normal [facility] Comment on above: Order Comment: Speci men Type: BLOOD SPECIMENOrdering Facility: [facility] Address: [address] [place] [address] Performed By: #### 5 7021-8 ####[facility]ORATORYCLIA [id number] [address] IMMATURE GRAN ABS 0.05 k/uL Normal <0.10 [facility] Comment on above: Order Comment: Speci men Type: BLOOD SPECIMENOrdering Facility: [facility] Address: [address] [place] [address] Performed By: #### 5 7021-8 ####[facility]ORATORYCLIA [id number] [address] Lymphocytes (Bld) [#/Vol] 1.85 10*3/uL Normal 1.00-4.00 [facility] Comment on above: Order Comment: Speci men Type: BLOOD SPECIMENOrdering Facility: [facility] Address: [address] [place] [address] Performed By: #### 5 7021-8 ####[facility]ORATORYCLIA [id number] [address] Lymphocytes/100 WBC (Bld) 14.7 % Normal [facility] Comment on above: Order Comment: Speci men Type: BLOOD SPECIMENOrdering Facility: [facility] Address: [address] [place] [address] Performed By: #### 5 7021-8 ####[facility]ORATORYCLIA [id number] [address] [facility] MCH (RBC) [Entitic mass] 27.1 pg Normal 26.0-34.0 [facility] Comment on above: Order Comment: Speci men Type: BLOOD SPECIMENOrdering Facility: [facility] Address: [address] [place] [address] Performed By: #### 5 7021-8 ####[facility]ORATORYCLIA [id number] [address] STATES [facility] MCHC (RBC) [Mass/Vol] 30.3 g/dL Low 30.5-36.0 [facility] Comment on above: Order Comment: Speci men Type: BLOOD SPECIMENOrdering Facility: [facility] Address: [address] [place] [address] Performed By: #### 5 7021-8 ####[facility]ORATORYCLIA [id number] [address] MCV (RBC) [Entitic vol] 89.7 fL Normal 80.0-100.0 [facility] Comment on above: Order Comment: Speci men Type: BLOOD SPECIMENOrdering Facility: [facility] Address: [address] [place] [address] Performed By: #### 5 7021-8 ####[facility]ORATORYCLIA [id number] [address] Monocytes (Bld) [#/Vol] 0.87 10*3/uL High <0.87 [facility] Comment on above: Order Comment: Speci men Type: BLOOD SPECIMENOrdering Facility: [facility] Address: [address] [place] [address] Performed By: #### 5 7021-8 ####[facility] LABORATORYCLIA [id number] [address] [place] Monocytes/100 WBC (Bld) 6.9 % Normal [facility] Comment on above: Order Comment: Speci men Type: BLOOD SPECIMENOrdering Facility: [facility] Address: [address] [place] [address] Performed By: #### 5 7021-8 ####[facility]ORATORYCLIA [id number] [address] [place] Neutrophils (Bld) [#/Vol] 9.05 10*3/uL High 1.45-7.50 [facility] Comment on above: Order Comment: Speci men Type: BLOOD SPECIMENOrdering Facility: [facility] Address: [address] [place] [address] Performed By: #### 5 7021-8 ####[facility]ORATORYCLIA [id number] [address] [place] Neutrophils/100 WBC (Bld) 72.2 % Normal [facility] Comment on above: Order Comment: Speci men Type: BLOOD SPECIMENOrdering Facility: [facility] Address: [address] [place] [address] Performed By: #### 5 7021-8 ####[facility]ORATORYCLIA [id number] [address] [place] Nucleated RBC (Bld) [#/Vol] 10*3/uL Normal <0.01 [facility] Comment on above: Order Comment: Speci men Type: BLOOD SPECIMENOrdering Facility: [facility] Address: [address] [place] [address] Performed By: #### 5 7021-8 ####[facility]ORATORYCLIA [id number] [address] [place] Nucleated RBC/100 WBC (Bld) [Ratio] 0.0 /100 WBC Normal [facility] Comment on above: Order Comment: Speci men Type: BLOOD SPECIMENOrdering Facility: [facility] Address: [address] [place] [address] Performed By: #### 5 7021-8 ####[facility]ORATORYCLIA [id number] [place] [address] [place] Platelet mean volume (Bld) [Entitic vol] 9.9 fL Normal 9.0-12.7 [facility] Comment on above: Order Comment: Speci men Type: BLOOD SPECIMENOrdering Facility: [facility] Address: [address] [place] [address] Performed By: #### 5 7021-8 ####[facility]ORATORYCLIA [id number] [address] [place] Platelets (Bld) [#/Vol] 335 10*3/uL Normal 150-400 [facility] Comment on above: Order Comment: Speci men Type: BLOOD SPECIMENOrdering Facility: [facility] Address: [address] [place] [address] Performed By: #### 5 7021-8 ####[facility]ORATORYCLIA [id number] [place] [address] [place] RBC (Bld) [#/Vol] 3.98 10*6/uL Low 4.20-6.00 [facility] Comment on above: Order Comment: Speci men Type: BLOOD SPECIMENOrdering Facility: [facility] Address: [address] [place] [address] Performed By: #### 5 7021-8 ####[facility]ORATORYCLIA [id number] [address] [place] WBC (Bld) [#/Vol] 12.55 10*3/uL High 3.70-11.00 [facility] Comment on above: Order Comment: Speci men Type: BLOOD SPECIMENOrdering Facility: [facility] Address: [address] [place] [address] Performed By: #### 5 7021-8 ####[facility]ORATORYCLIA [id number] [address] [facility] CK CREATINE KINASEon 022 CK [Catalytic activity/Vol] 72 U/L Normal 51-298 [facility] Comment on above: Order Comment: Speci men Type: BLOOD SPECIMENOrdering Facility: [facility] Address: [address] [place] [address] Performed By: #### C K, 06884-5 ####[facility]ORATORYCLIA [id number] [address] [place] CONSULT PROGon 07-08-2021 CONSULT PROG Normal [facility] CONSULT PROG Normal [facility] CSF MANUAL DIFFon 07-08-2021 DIF TTL, CSF 3 cells counted Normal [facility] Comment on above: Order Comment: Speci men Type: CEREBROSPINAL FLUIDOrdering Facility: [facility] Address: [address] [place] [address] Performed By: #### 3 4563-7, [id number] ####[facility]ORATORYCLIA [id number] [place] [address] [place] LYMPH%, CSF 33 % Low 50-90 [facility] Comment on above: Order Comment: Speci men Type: CEREBROSPINAL FLUIDOrdering Facility: [facility] Address: [address] [place] [address] Performed By: #### 3 4563-7, [id number] ####[facility]ORATORYCLIA [id number] [place] [address] [place] MONO%, CSF 67 % High 10-50 [facility] Comment on above: Order Comment: Speci men Type: CEREBROSPINAL FLUIDOrdering Facility: [facility] Address: [address] [place] [address] Performed By: #### 3 4563-7, [id number] ####[facility] LABORATORYCLIA [id number] [place] [address] [place] CT ABD/PEL W [...] Type: CEREBROSPINAL FLUIDOrdering Facility: [facility] Address: [address] [place] [address] Performed By: #### 3 4563-7, [id number] ####[facility]ORATORYCLIA [id number] [place] [address] [place] Clarity (Unsp spec) Clear Normal Clear [facility] Comment on above: Order Comment: Speci men Type: CEREBROSPINAL FLUIDOrdering Facility: [facility] Address: [address] [place] [address] Performed By: #### 3 4563-7, [id number] ####[facility]ORATORYCLIA [id number] [address] [place] Color (CSF) Colorless Normal Colorless [facility] Comment on above: Order Comment: Speci men Type: CEREBROSPINAL FLUIDOrdering Facility: [facility] Address: [address] [place] [address] Performed By: #### 3 4563-7, [id number] ####[facility]ORATORYCLIA [id number] [address] [place] Color (Spun CSF) Colorless Normal Colorless [facility] Comment on above: Order Comment: Speci men Type: CEREBROSPINAL FLUIDOrdering Facility: [facility] Address: [address] [place] [address] Performed By: #### 3 4563-7, [id number] ####[facility]ORATORYCLIA [id number] [address] CSF TUBE NUMBER [employer] Normal [facility] Comment on above: Order Comment: Speci men Type: CEREBROSPINAL FLUIDOrdering Facility: [facility] Address: [address] [place] [address] Performed By: #### 3 4563-7, [id number] ####[facility]ORATORYCLIA [id number] [address] RBC Manual cnt (CSF) [#/Vol] 94 cells/uL High 0-5 [facility] Comment on above: Order Comment: Speci men Type: CEREBROSPINAL FLUIDOrdering Facility: [facility] Address: [address] [place] [address] Performed By: #### 3 4563-7, [id number] ####[facility]ORATORYCLIA [id number] [address] WBC Manual cnt (CSF) [#/Vol] 1 cells/uL Normal 0-5 [facility] Comment on above: Order Comment: Speci men Type: CEREBROSPINAL FLUIDOrdering Facility: [facility] Address: [address] [place] [address] Performed By: #### 3 4563-7, [id number] ####[facility]ORATORYCLIA [id number] [address] [facility] Comprehensive metabolic 2000 panelon 07-08-2021 Albumin [Mass/Vol] 3.6 g/dL Low 3.9-4.9 [facility] Comment on above: Order Comment: Speci men Type: BLOOD SPECIMENOrdering Facility: [facility] Address: [address] [place] [address] Performed By: #### C K, 53863-8 ####[facility]ORATORYCLIA [id number] [address] ALP [Catalytic activity/Vol] 125 U/L High 38-113 [facility] Comment on above: Order Comment: Speci men Type: BLOOD SPECIMENOrdering Facility: [facility] Address: [address] [place] [address] Performed By: #### Eileen Valdivia, 41354-0 ####[facility] LABORATORYCLIA [id number] [place] [address] [place] ALT With P-5'-P [Catalytic activity/Vol] 24 U/L Normal 10-54 [facility] Comment on above: Order Comment: Speci men Type: BLOOD SPECIMENOrdering Facility: [facility] Address: [address] [place] [address] Performed By: #### Eileen Valdivia, 33815-3 ####[facility]ORATORYCLIA [id number] [address] STATES [facility] Anion gap [Moles/Vol] 16 mmol/L Normal 9-18 [facility] Comment on above: Order Comment: Speci men Type: BLOOD SPECIMENOrdering Facility: [facility] Address: [address] [place] [address] Performed By: #### Eileen Valdivia, 72748-7 ####[facility] LABORATORYCLIA [id number] [address] [place] AST With P-5'-P [Catalytic activity/Vol] 21 U/L Normal 14-40 [facility] Comment on above: Order Comment: Speci men Type: BLOOD SPECIMENOrdering Facility: [facility] Address: [address] [place] [address] Performed By: #### Eileen Valdivia, 31198-7 ####[facility] LABORATORYCLIA [id number] [address] [place] Bilirubin [Mass/Vol] 0.3 mg/dL Normal 0.2-1.3 [facility] Comment on above: Order Comment: Speci men Type: BLOOD SPECIMENOrdering Facility: [facility] Address: [address] [place] [address] Performed By: #### Eileen Valdivia, [id number] ####[facility] LABORATORYCLIA [id number] [address] [place] Calcium [Mass/Vol] 8.9 mg/dL Normal 8.5-10.2 [facility] Comment on above: Order Comment: Speci men Type: BLOOD SPECIMENOrdering Facility: [facility] Address: [address] [address] Performed By: #### Eileen Valdivia, 88956-9 ####[facility] LABORATORYCLIA [id number] [place] [address] [place] Chloride [Moles/Vol] 96 mmol/L Low 97-105 [facility] Comment on above: Order Comment: Speci men Type: BLOOD SPECIMENOrdering Facility: [facility] Address: [address] [place] [address] Performed By: #### Eileen Valdivia, 88301-9 ####[facility] LABORATORYCLIA [id number] [address] [place] CO2 [Moles/Vol] 27 mmol/L Normal 22-30 [facility] Comment on above: Order Comment: Speci men Type: BLOOD SPECIMENOrdering Facility: [facility] Address: [address] [place] [address] Performed By: #### Eileen Valdivia, 58951-5 ####[facility]ORATORYCLIA [id number] [address] [place] Creatinine [Mass/Vol] 0.68 mg/dL Low 0.73-1.22 [facility] Comment on above: Order Comment: Speci men Type: BLOOD SPECIMENOrdering Facility: [facility] Address: [address] [address] Performed By: #### Eileen Valdivia, 71197-7 ####[facility]ORATORYCLIA [id number] [address] ESTIMATED GLOMERULAR FILTRATION RATE 101 mL/min/1.73m??? Normal >=60 [facility] Comment on above: Order Comment: Speci men Type: BLOOD SPECIMENOrdering Facility: [facility] Address: [address] [place] [address] Result Comment: Luzmaria mated Glomerular Filtration Rate [...] actual GFR. Performed By: #### Eileen Valdivia, 00411-5 ####[facility]ORATORYCLIA [id number] [place] [address] [place] Glucose [Mass/Vol] 130 mg/dL High 74-99 [facility] Comment on above: Order Comment: Shira feldman Type: BLOOD SPECIMENOrdering Facility: [facility] Address: [address] [place], [place] [address] Result Comment: The [place] Diabetes Association (ADA) provides guidance for cutoff [...] Standards of Medical Care in Diabetes 2016, [place] [employer]. Diabetes Care. 2016.39(Suppl 1). Performed By: #### Eileen Valdivia, 58347-2 ####[facility] LABORATORYCLIA [id number] [address] [id number] [place] Potassium [Moles/Vol] 3.9 mmol/L Normal 3.7-5.1 [facility] Comment on above: Order Comment: Shira feldman Type: BLOOD SPECIMENOrdering Facility: [facility] Address: [address] [place] [address] Performed By: #### Eileen Valdivia, 29906-4 ####[facility]ORATORYCLIA [id number] [place] [address] [place] Protein [Mass/Vol] 7.0 g/dL Normal 6.3-8.0 [facility] Comment on above: Order Comment: Speci men Type: BLOOD SPECIMENOrdering Facility: [facility] Address: [address] [place] [address] Performed By: #### Eileen Valdivia, 37428-9 ####[facility]ATORYCLIA [id number] [address] [place] Sodium [Moles/Vol] 139 mmol/L Normal 136-144 [facility] Comment on above: Order Comment: Speci men Type: BLOOD SPECIMENOrdering Facility: [facility] Address: [address] [place] [address] Performed By: #### Eileen Valdivia, 40899-9 ####[facility]ORATORYCLIA [id number] [address] [place] Urea nitrogen [Mass/Vol] 16 mg/dL Normal 9-24 [facility] Comment on above: Order Comment: Speci men Type: BLOOD SPECIMENOrdering Facility: [facility] Address: [address] [place] [address] Performed By: #### Eileen Valdivia, 01387-5 ####[facility]ORATORYCLIA [id number] [address] ED NOTEon 07-08-2021 ED NOTE HNO ID: [id number] Author: Lenora James RN Service: Emergency Medicine Author Type: Registered Nurse Type: ED Notes Filed: 07/08/2021 5:03 PM Note Text: Pt to OR with surgical team Normal [facility] ED NOTE HNO ID: [id number] Author: Lenora James RN Service: Emergency Medicine Author Type: Registered Nurse Type: ED Notes Filed: 07/08/2021 4:50 PM Note Text: OR team to get pt Normal [facility] ED NOTE HNO ID: [id number] Author: Lenora James RN Service: Emergency Medicine Author Type: Registered Nurse Type: ED Notes Filed: 07/08/2021 4:50 PM Note Text: Normal [facility] ED NOTE HNO ID: [id number] Author: Lenora James RN Service: Emergency Medicine Author Type: Registered Nurse Type: ED Notes Filed: 07/08/2021 4:50 PM Note Text: Spoke with presurg; pt to go to OR now [facility] ED NOTE HNO ID: [id number] Author: Lenora James RN Service: Emergency Medicine Author Type: Registered Nurse Type: ED Notes Filed: 07/08/2021 4:12 PM Note Text: Neurosurgery at beside [facility] ED NOTE HNO ID: [id number] Author: Lenora James RN Service: Emergency Medicine Author Type: Registered Nurse Type: ED Notes Filed: 07/08/2021 2:35 PM Note Text: respiratory aware of pt breathing treatments [facility] ED NOTE HNO ID: [id number] Author: Lisa Woo RN Service: ? Author Type: Registered Nurse Type: ED Notes Filed: 07/08/2021 2:20 PM Note Text: Xray notified pt is ready. [facility] ED NOTE HNO ID: [id number] Author: Lenora James RN Service: Emergency Medicine Author Type: Registered Nurse Type: ED Notes Filed: 07/08/2021 12:14 PM Note Text: CT notified regarding imaging orders placed [facility] ED NOTE Normal [facility] ED PROV NOTEon 07-08-2021 ED PROV NOTE Normal [facility] Glucose CSF-mCncon 2 Glucose (CSF) [Mass/Vol] 88 mg/dL High 40-70 [facility] Comment on above: Order Comment: Speci men Type: CEREBROSPINAL FLUIDOrdering Facility: [facility] Address: [address] [place] [address] Result Comment: Lumb ar CSF glucose values of healthy patients are approximately 60% of the plasma values and must always be compared with a concurrently measured plasma value for adequate clinical interpretation.References: 1. Glucose HK (GLUC3) [package insert V 12.0 [place]]. [employer], [place], [place]. September 2015. 2. Teresa HGarfield, Loki, H. (2015). Chapter 7: Glucose and Lactate. F. Irina rose al.(eds.), Cerebrospinal Fluid in Clinical Neurology. [place]: [employer]. Performed By: #### 2 880-3, 2342-4 ####[facility] LABORATORYCLIA [id number] [address] HIGH SENSITIVITY TROPONIN To n 07-08-2021 HIGH SENSITIVITY TAMIKO 27 ng/L High <12 [facility] Comment on above: Order Comment: Speci men Type: BLOOD SPECIMENOrdering Facility: [facility] Address: [address] [place] [address] Result Comment: When assessing risk for acute [...] day MACE. Performed By: #### H STNT ####[facility]ORATORYCLIA [id number] [address] HIGH SENSITIVITY TAMIKO 36 ng/L High <12 [facility] Comment on above: Order Comment: Speci francia Type: BLOOD SPECIMENOrdering Facility: [facility] Address: [address] [place] [address] Result Comment: When assessing risk for acute [...] day MACE. Performed By: #### H STNT ####[facility]ORATORYCLIA [id number] [address] [facility] HISTORY PHYSICALon HISTORY PHYSICAL Normal [facility] NURSING PROGon 07-08-2021 NURSING PROG Normal [facility] OPERATIVE NOon 07-08-2021 OPERATIVE NO Normal [facility] Prot CSF-mCncon 07-08-2021 Protein (CSF) [Mass/Vol] 33 mg/dL Normal 15-45 [facility] Comment on above: Order Comment: Speci men Type: CEREBROSPINAL FLUIDOrdering Facility: [facility] Address: [address] [place] [address] Performed By: #### 2 880-3, 2342-4 ####[facility]ORATORYCLIA [id number] [address] [place] SARS-CoV-2 RNA Resp Ql MEGAN+p robeon 07-08-2021 SARS-CoV-2 (COVID-19) RNA MEGAN+probe Ql (Resp) COVID 19 RESULT: SARS-CoV-2 (Agent of COVID-19) Not Detected by RT-PCR or equivalent method. This test has been authorized by FDA under an Emergency Use Authorization (EUA). Normal [facility] Comment on above: Performed By: #### 9 4500-6 ####[facility]ORATORYCLIA [id number] [address] STAPH AUREUS PCRon 2 S. aureus and MRSA panel MEGAN+probe (Nose) Normal Negative [facility] Comment on above: Order Comment: Speci men Type: SWAB OF INTERNAL NOSEOrdering Facility: [facility] Address: [address] [place] [address] Result Comment: Nega tive for Staphylococcus aureus by PCR.Negative for MRSA by PCR Performed By: #### S APCR ####[facility]ORATORYCLIA [id number] [address] [place] Urinalysis complete panel (U )on 07-08-2021 Bacteria LM.HPF (Urine sed) [#/Area] Few Abnormal None Seen [facility] Comment on above: Order Comment: Speci men Type: URINE SPECIMENOrdering Facility: [facility] Address: [address] [place] [address] Performed By: #### 2 4356-8 ####[facility]ORATORYCLIA [id number] [place] [address] [place] Bilirubin Ql (U) Negative Normal Negative [facility] Comment on above: Order Comment: Speci men Type: URINE SPECIMENOrdering Facility: [facility] Address: [address] [place] [address] Performed By: #### 2 4356-8 ####[facility]ORATORYCLIA [id number] [address] Clarity (Unsp spec) Turbid Abnormal Clear [facility] Comment on above: Order Comment: Speci men Type: URINE SPECIMENOrdering Facility: [facility] Address: [address] [place] [address] Performed By: #### 2 4356-8 ####[facility]ORATORYCLIA [id number] [address] Color (U) Light Yellow Normal yellow [facility] Comment on above: Order Comment: Speci men Type: URINE SPECIMENOrdering Facility: [facility] Address: [address] [place] [address] Performed By: #### 2 4356-8 ####[facility]ATORYCLIA [id number] [address] Glucose Test strip (U) [Mass/Vol] Negative Normal Negative [facility] Comment on above: Order Comment: Speci men Type: URINE SPECIMENOrdering Facility: [facility] Address: [address] [place] [address] Performed By: #### 2 4356-8 ####[facility]ORATORYCLIA [id number] [address] Hemoglobin Ql (U) Negative Normal Negative [facility] Comment on above: Order Comment: Speci men Type: URINE SPECIMENOrdering Facility: [facility] Address: [address] [place] [address] Performed By: #### 2 4356-8 ####[facility]ATORYCLIA [id number] [address] Hyaline casts (Urine sed) [#/Area] 1-3 /LPF Abnormal 0 /LPF [facility] Comment on above: Order Comment: Speci men Type: URINE SPECIMENOrdering Facility: [facility] Address: [address] [place] [address] Performed By: #### 2 4356-8 ####[facility]ORATORYCLIA [id number] [address] Ketones Ql (U) Negative Normal Negative [facility] Comment on above: Order Comment: Speci men Type: URINE SPECIMENOrdering Facility: [facility] Address: [address] [place] [address] Performed By: #### 2 4356-8 ####[facility]ATORYCLIA [id number] [address] Leukocyte esterase Test strip Ql (U) Negative Normal Negative [facility] Comment on above: Order Comment: Speci men Type: URINE SPECIMENOrdering Facility: [facility] Address: [address] [place] [address] Performed By: #### 2 4356-8 ####[facility]ATORYCLIA [id number] [address] [place] Nitrite Ql (U) Negative Normal Negative [facility] Comment on above: Order Comment: Speci men Type: URINE SPECIMENOrdering Facility: [facility] Address: [address] [place] [address] Performed By: #### 2 4356-8 ####[facility]ORATORYCLIA [id number] [address] [place] pH (U) 5.0 [pH] Normal 5.0-8.0 [facility] Comment on above: Order Comment: Speci men Type: URINE SPECIMENOrdering Facility: [facility] Address: [address] [place] [address] Performed By: #### 2 4356-8 ####[facility]ATORYCLIA [id number] [address] [place] Protein (U) [Mass/Vol] Negative Normal Negative [facility] Comment on above: Order Comment: Speci men Type: URINE SPECIMENOrdering Facility: [facility] Address: [address] [place] [address] Performed By: #### 2 4356-8 ####[facility]ORATORYCLIA [id number] [address] RBC LM.HPF (Urine sed) [#/Area] 11-25 /HPF Abnormal 0-3 /HPF [facility] Comment on above: Order Comment: Speci men Type: URINE SPECIMENOrdering Facility: [facility] Address: [address] [place] [address] Performed By: #### 2 4356-8 ####[facility]ORATORYCLIA [id number] [address] Specific gravity (U) [Rel density] 1.018 Normal 1.005-1.030 [facility] Comment on above: Order Comment: Speci men Type: URINE SPECIMENOrdering Facility: [facility] Address: [address] [place] [address] Performed By: #### 2 4356-8 ####[facility]ORATORYCLIA [id number] [address] Urobilinogen Ql (U) Normal Normal Negative [facility] Comment on above: Order Comment: Speci men Type: URINE SPECIMENOrdering Facility: [facility] Address: [address] [place] [address] Performed By: #### 2 4356-8 ####[facility]ORATORYCLIA [id number] [address] WBC LM.HPF (Urine sed) [#/Area] /[HPF] Abnormal 0-5 /HPF [facility] Comment on above: Order Comment: Speci men Type: URINE SPECIMENOrdering Facility: [facility] Address: [address] [place] [address] Performed By: #### 2 4356-8 ####[facility]ORATORYCLIA [id number] [address] Vancomycin random [Mass/Vol] on 07-08-2021 Vancomycin [Mass/Vol] 31.0 ug/mL High 10.0-20.0 [facility] Comment on above: Order Comment: Speci men Type: BLOOD SPECIMENOrdering Facility: [facility] Address: [address] [place] [address] Result Comment: Refe rence ranges and high/low indicator flags are provided as general guidelines only. The treating physician must determine appropriate target levels/dosing based on the specific clinical situation. Performed By: #### 4 091-5 ####[facility]ORATORYCLIA [id number] [address] [facility] XR ABD 2V SUPINE W UPR/DECUB [...] Hospital HISTORY PHYSICALon HISTORY PHYSICAL HNO ID: [id number] Author: Amy Beltran MD Service: ? Author Type: Physician Type: HANDP Filed: 06/30/2021 6:42 PM Note Text: Connected Care Unit History and Physical [facility] Level of Care: Skilled Admission Date: June [...] regarding the above plan. Total time spent [id number] and/or counseling and coordinating care on the skilled care unit for patient was approximately 45 minutes SUBJECTIVE (HISTORY) Chief Complaint: Confusion, infection, blood clot. Andrew Sifuentes is being seen today for snf facility (SNF) admission AND management of weakness, tube feed, infected retroperitoneal infection and seizure. HPI: This is a 71 year old male who presents from [facility] with primary admitting diagnosis of Seizure, [...] CT brain concerning for hydrocephalus. Tip of DIRECT ENTRY MIDWIFE shunt was found to be in the [...] Status: Fu (more content not included)... Normal [facility] Basic metabolic 2000 panelon 06-28-2021 Anion gap [Moles/Vol] 7 mmol/L Low 9-18 [facility] Comment on above: Order Comment: Speci men Type: BLOOD SPECIMENOrdering Facility: [facility] Address: [address] [place] [address] [place] [address] Performed By: #### 2 43205-08, ####[facility]ORATORYCLIA [id number] [place] [address] [place] Calcium [Mass/Vol] 8.8 mg/dL Normal 8.5-10.2 [facility] Comment on above: Order Comment: Speci men Type: BLOOD SPECIMENOrdering Facility: [facility] Address: [address] [place] [address] Performed By: #### 2 2, ####[facility]ORATORYCLIA [id number] [place] [address] [place] Chloride [Moles/Vol] 103 mmol/L Normal 97-105 [facility] Comment on above: Order Comment: Speci men Type: BLOOD SPECIMENOrdering Facility: [facility] Address: [address] [place] [address] Performed By: #### 2 4320-06, ####[facility]ATORYCLIA [id number] [place] [address] [place] CO2 [Moles/Vol] 28 mmol/L Normal 22-30 [facility] Comment on above: Order Comment: Speci men Type: BLOOD SPECIMENOrdering Facility: [facility] Address: [address] [place] [address] Performed By: #### 2 4320-06, ####[facility]ATORYCLIA [id number] [place] [address] [place] Creatinine [Mass/Vol] 0.57 mg/dL Low 0.73-1.22 [facility] Comment on above: Order Comment: Speci men Type: BLOOD SPECIMENOrdering Facility: [facility] Address: [address] [place] [address] Performed By: #### 2 4320-06, ####[facility]ORATORYCLIA [id number] [place] [address] [place] GFR/1.73 sq M.predicted MDRD (S/P/Bld) [Vol rate/Area] mL/min/{1.73_m2} Normal [facility] Comment on above: Order Comment: Shira feldman Type: BLOOD SPECIMENOrdering Facility: [facility] Address: [address] [place] [address] Result Comment: >60e GFR (Estimated GFR) Units [...] actual GFR. Performed By: #### 2 4321-2, 95033-4 ####[facility]ORATORYCLIA [id number] [place] [address] [place] Glucose [Mass/Vol] 120 mg/dL High 74-99 [facility] Comment on above: Order Comment: Shira feldman Type: BLOOD SPECIMENOrdering Facility: [facility] Address: [address] [place] [address] Result Comment: The [place] Diabetes Association (ADA) provides guidance for cutoff [...] Standards of Medical Care in Diabetes 2016, [place] [employer]. Diabetes Care. 2016.39(Suppl 1). Performed By: #### 2 4321-2, 12174-0 ####[facility]ORATORYCLIA [id number] [place] [address] [place] Potassium [Moles/Vol] 3.8 mmol/L Normal 3.7-5.1 [facility] Comment on above: Order Comment: Speci men Type: BLOOD SPECIMENOrdering Facility: [facility] Address: [address] [place] [address] Performed By: #### 2 4321-2, ####[facility]ORATORYCLIA [id number] [address] STATES [facility] Sodium [Moles/Vol] 138 mmol/L Normal 136-144 [facility] Comment on above: Order Comment: Speci men Type: BLOOD SPECIMENOrdering Facility: [facility] Address: [address] [place] [address] Performed By: #### 2 4321-2, ####[facility]ATORYCLIA [id number] [address] STATES [facility] Urea nitrogen [Mass/Vol] 24 mg/dL Normal 9-24 [facility] Comment on above: Order Comment: Speci men Type: BLOOD SPECIMENOrdering Facility: [facility] Address: [address] [place] [address] Performed By: #### 2 4321-2, ####[facility]ORATORYCLIA [id number] [address] CASE MANAGEMon 06-28-2021 CASE MANAGEM Normal [facility] CBC panel Auto (Bld)on 06-28 Erythrocyte distribution width (RBC) [Ratio] 15.6 % High 11.5-15.0 [facility] Comment on above: Order Comment: Speci men Type: BLOOD SPECIMENOrdering Facility: [facility] Address: [address] [place] [address] Performed By: #### 5 8410-2 ####[facility]ORATORYCLIA [id number] [address] Hematocrit (Bld) [Volume fraction] 30.5 % Low 39.0-51.0 [facility] Comment on above: Order Comment: Speci men Type: BLOOD SPECIMENOrdering Facility: [facility] Address: [address] [place] [address] Performed By: #### 5 8410-2 ####[facility]ATORYCLIA [id number] [address] Hemoglobin (Bld) [Mass/Vol] 9.4 g/dL Low 13.0-17.0 [facility] Comment on above: Order Comment: Speci men Type: BLOOD SPECIMENOrdering Facility: [facility] Address: [address] [place] [address] Performed By: #### 5 8410-2 ####[facility]ORATORYCLIA [id number] [address] MCH (RBC) [Entitic mass] 27.8 pg Normal 26.0-34.0 [facility] Comment on above: Order Comment: Speci men Type: BLOOD SPECIMENOrdering Facility: [facility] Address: [address] [place] [address] Performed By: #### 5 8410-2 ####[facility]ORATORYCLIA [id number] [address] MCHC (RBC) [Mass/Vol] 30.8 g/dL Normal 30.5-36.0 [facility] Comment on above: Order Comment: Speci men Type: BLOOD SPECIMENOrdering Facility: [facility] Address: [address] [place] [address] Performed By: #### 5 8410-2 ####[facility]ORATORYCLIA [id number] [address] [place] [facility] MCV (RBC) [Entitic vol] 90.2 fL Normal 80.0-100.0 [facility] Comment on above: Order Comment: Speci men Type: BLOOD SPECIMENOrdering Facility: [facility] Address: [address] [place] [address] Performed By: #### 5 8410-2 ####[facility]ORATORYCLIA [id number] [place] [address] [place] Nucleated RBC (Bld) [#/Vol] 10*3/uL Normal <0.01 [facility] Comment on above: Order Comment: Speci men Type: BLOOD SPECIMENOrdering Facility: [facility] Address: [address] [place] [address] Performed By: #### 5 8410-2 ####[facility]ORATORYCLIA [id number] [place] [address] [place] Platelet mean volume (Bld) [Entitic vol] 9.9 fL Normal 9.0-12.7 [facility] Comment on above: Order Comment: Speci men Type: BLOOD SPECIMENOrdering Facility: [facility] Address: [address] [place] [address] Performed By: #### 5 8410-2 ####[facility]ORATORYCLIA [id number] [address] [place] Platelets (Bld) [#/Vol] 333 10*3/uL Normal 150-400 [facility] Comment on above: Order Comment: Speci men Type: BLOOD SPECIMENOrdering Facility: [facility] Address: [address] [place] [address] Performed By: #### 5 8410-2 ####[facility]ORATORYCLIA [id number] [place] [address] [place] [place] RBC (Bld) [#/Vol] 3.38 10*6/uL Low 4.20-6.00 [facility] Comment on above: Order Comment: Speci men Type: BLOOD SPECIMENOrdering Facility: [facility] Address: [address] [address] Performed By: #### 5 8410-2 ####[facility] LABORATORYCLIA [id number] [place] [address] [place] WBC (Bld) [#/Vol] 9.71 10*3/uL Normal 3.70-11.00 [facility] Comment on above: Order Comment: Speci men Type: BLOOD SPECIMENOrdering Facility: [facility] Address: [address] [address] Performed By: #### 5 8410-2 ####[facility] LABORATORYCLIA [id number] [address] [place] CNDSon 06-28-2021 CNDS Normal [facility] CONSULT PROGon 06-28-2021 CONSULT PROG Normal [facility] Magnesium SerPl-mCncon 06-28 Magnesium [Mass/Vol] 2.2 mg/dL Normal 1.7-2.3 [facility] Comment on above: Order Comment: Speci men Type: BLOOD SPECIMENOrdering Facility: [facility] Address: [address] [address] Performed By: #### 2 4321-2, ####[facility] LABORATORYCLIA [id number] [address] Vancomycin random [Mass/Vol] on 06-28-2021 Vancomycin [Mass/Vol] 23.0 ug/mL High 10.0-20.0 [facility] Comment on above: Order Comment: Speci men Type: BLOOD SPECIMENOrdering Facility: [facility] Address: [address] [place] [address] Result Comment: Refe rence ranges and high/low indicator flags are provided as general guidelines only. The treating physician must determine appropriate target levels/dosing based on the specific clinical situation. Performed By: #### 4 091-5 ####[facility]ORATORYCLIA [id number] [address] OF [facility] ALLIED HEALTHon 06-27-2021 ALLIED HEALTH Normal [facility] Basic metabolic 2000 panelon 06-27-2021 Anion gap [Moles/Vol] 10 mmol/L Normal 9-18 [facility] Comment on above: Order Comment: Speci men Type: BLOOD SPECIMENOrdering Facility: [facility] Address: [address] [address] Performed By: #### 2 4321-2, ####[facility]ORATORYCLIA [id number] [place] [address] [place] Calcium [Mass/Vol] 8.8 mg/dL Normal 8.5-10.2 [facility] Comment on above: Order Comment: Speci men Type: BLOOD SPECIMENOrdering Facility: [facility] Address: [address] [place] [address] Performed By: #### 2 4321-2, ####[facility] LABORATORYCLIA [id number] [place] [address] [place] Chloride [Moles/Vol] 104 mmol/L Normal 97-105 [facility] Comment on above: Order Comment: Speci men Type: BLOOD SPECIMENOrdering Facility: [facility] Address: [address] [place] [address] Performed By: #### 2 4321-2, ####[facility] LABORATORYCLIA [id number] [address] [place] CO2 [Moles/Vol] 26 mmol/L Normal 22-30 [facility] Comment on above: Order Comment: Speci men Type: BLOOD SPECIMENOrdering Facility: [facility] Address: [address] [place] [address] Performed By: #### 2 4320-2, ####[facility]ORATORYCLIA [id number] [place] [address] [place] Creatinine [Mass/Vol] 0.57 mg/dL Low 0.73-1.22 [facility] Comment on above: Order Comment: Speci men Type: BLOOD SPECIMENOrdering Facility: [facility] Address: [address] [place] [address] Performed By: #### 2 4320-2, ####[facility] LABORATORYCLIA [id number] [address] [place] GFR/1.73 sq M.predicted MDRD (S/P/Bld) [Vol rate/Area] mL/min/{1.73_m2} Normal [facility] Comment on above: Order Comment: Speci men Type: BLOOD SPECIMENOrdering Facility: [facility] Address: [address] [place], [place] [address] Result Comment: >60e GFR (Estimated GFR) Units [...] actual GFR. Performed By: #### 2 4321-2, 20588-3 ####[facility]ORATORYCLIA [id number] [place] [address] [place] Glucose [Mass/Vol] 133 mg/dL High 74-99 [facility] Comment on above: Order Comment: Shira feldman Type: BLOOD SPECIMENOrdering Facility: [facility] Address: [address] [place] [address] Result Comment: The [place] Diabetes Association (ADA) provides guidance for cutoff [...] Standards of Medical Care in Diabetes 2016, [place] [employer]. Diabetes Care. 2016.39(Suppl 1). Performed By: #### 2 4321-2, 51425-3 ####[facility] LABORATORYCLIA [id number] [place] [address] [place] Potassium [Moles/Vol] 4.2 mmol/L Normal 3.7-5.1 [facility] Comment on above: Order Comment: Speci men Type: BLOOD SPECIMENOrdering Facility: [facility] Address: [address] [place] [address] Performed By: #### 2 4321-2, 12848-8 ####[facility]ORATORYCLIA [id number] [address] Sodium [Moles/Vol] 140 mmol/L Normal 136-144 [facility] Comment on above: Order Comment: Speci men Type: BLOOD SPECIMENOrdering Facility: [facility] Address: [address] [place] [address] Performed By: #### 2 4321-2, ####[facility]ORATORYCLIA [id number] [address] STATES [facility] Urea nitrogen [Mass/Vol] 24 mg/dL Normal 9-24 [facility] Comment on above: Order Comment: Speci men Type: BLOOD SPECIMENOrdering Facility: [facility] Address: [address] [place] [address] Performed By: #### 2 432-2, ####[facility]ORATORYCLIA [id number] [address] CASE MANAGEMon 06-27-2021 CASE MANAGEM Normal [facility] CBC panel Auto (Bld)on 06-27 Erythrocyte distribution width (RBC) [Ratio] 15.8 % High 11.5-15.0 [facility] Comment on above: Order Comment: Speci men Type: BLOOD SPECIMENOrdering Facility: [facility] Address: [address] [place] [address] Performed By: #### 5 8410-2 ####[facility]ORATORYCLIA [id number] [address] Hematocrit (Bld) [Volume fraction] 31.4 % Low 39.0-51.0 [facility] Comment on above: Order Comment: Speci men Type: BLOOD SPECIMENOrdering Facility: [facility] Address: [address] [place] [address] Performed By: #### 5 8410-2 ####[facility]ORATORYCLIA [id number] [address] Hemoglobin (Bld) [Mass/Vol] 9.3 g/dL Low 13.0-17.0 [facility] Comment on above: Order Comment: Speci men Type: BLOOD SPECIMENOrdering Facility: [facility] Address: [address] [place] [address] Performed By: #### 5 8410-2 ####[facility]ORATORYCLIA [id number] [address] MCH (RBC) [Entitic mass] 27.0 pg Normal 26.0-34.0 [facility] Comment on above: Order Comment: Speci men Type: BLOOD SPECIMENOrdering Facility: [facility] Address: [address] [place] [address] Performed By: #### 5 8410-2 ####[facility]ORATORYCLIA [id number] [address] MCHC (RBC) [Mass/Vol] 29.6 g/dL Low 30.5-36.0 [facility] Comment on above: Order Comment: Speci men Type: BLOOD SPECIMENOrdering Facility: [facility] Address: [address] [place] [address] Performed By: #### 5 8410-2 ####[facility]ORATORYCLIA [id number] [address] MCV (RBC) [Entitic vol] 91.3 fL Normal 80.0-100.0 [facility] Comment on above: Order Comment: Speci men Type: BLOOD SPECIMENOrdering Facility: [facility] Address: [address] [place] [address] Performed By: #### 5 8410-2 ####[facility]ORATORYCLIA [id number] [address] Nucleated RBC (Bld) [#/Vol] 10*3/uL Normal <0.01 [facility] Comment on above: Order Comment: Speci men Type: BLOOD SPECIMENOrdering Facility: [facility] Address: [address] [place] [address] Performed By: #### 5 8410-2 ####[facility]ORATORYCLIA [id number] [address] [place] Platelet mean volume (Bld) [Entitic vol] 10.3 fL Normal 9.0-12.7 [facility] Comment on above: Order Comment: Speci men Type: BLOOD SPECIMENOrdering Facility: [facility] Address: [address] [place] [address] Performed By: #### 5 8410-2 ####[facility] LABORATORYCLIA [id number] [address] [place] Platelets (Bld) [#/Vol] 359 10*3/uL Normal 150-400 [facility] Comment on above: Order Comment: Speci men Type: BLOOD SPECIMENOrdering Facility: [facility] Address: [address] [place] [address] Performed By: #### 5 8410-2 ####[facility]ORATORYCLIA [id number] [place] [address] [place] RBC (Bld) [#/Vol] 3.44 10*6/uL Low 4.20-6.00 [facility] Comment on above: Order Comment: Speci men Type: BLOOD SPECIMENOrdering Facility: [facility] Address: [address] [place], [place] [address] Performed By: #### 5 8410-2 ####[facility]ORATORYCLIA [id number] [place] [address] [place] WBC (Bld) [#/Vol] 10.73 10*3/uL Normal 3.70-11.00 [facility] Comment on above: Order Comment: Speci men Type: BLOOD SPECIMENOrdering Facility: [facility] Address: [address] [place] [address] Performed By: #### 5 8410-2 ####[facility]ORATORYCLIA [id number] [place] [address] [place] [facility] Healthcareon 06-27 Magnesium [Mass/Vol] 2.2 mg/dL Normal 1.7-2.3 [facility] Comment on above: Order Comment: Speci men Type: BLOOD SPECIMENOrdering Facility: [facility] Address: [address] [place] [address] Performed By: #### 2 4321-2, 65801-3 ####[facility]ORATORYCLIA [id number] [place] [address] [place] NT-proBNP SerPl-Paladin Healthcareon 06-27 Natriuretic peptide.B prohormone N-Terminal [Mass/Vol] 184 pg/mL High <125 [facility] Comment on above: Order Comment: Speci men Type: BLOOD SPECIMENOrdering Facility: [facility] Address: [address] [place] [address] Performed By: #### 3 3762-6 ####[facility]ORATORYCLIA [id number] [place] [address] [place] NUTRITIONon 06-27-2021 NUTRITION [...] Type: BLOOD SPECIMENOrdering Facility: [facility] Address: [address] [place] [address] Performed By: #### 1 9123-9, 80172-0 ####[facility]ORATORYCLIA [id number] [place] [address] [place] Calcium [Mass/Vol] 8.7 mg/dL Normal 8.5-10.2 [facility] Comment on above: Order Comment: Speci men Type: BLOOD SPECIMENOrdering Facility: [facility] Address: [address] [address] Performed By: #### 1 9123-9, 29218-3 ####[facility]ORATORYCLIA [id number] [address] [place] Chloride [Moles/Vol] 105 mmol/L Normal 97-105 [facility] Comment on above: Order Comment: Speci men Type: BLOOD SPECIMENOrdering Facility: [facility] Address: [address] [place] [address] Performed By: #### 1 9123-9, 53956-1 ####[facility]ORATORYCLIA [id number] [address] [place] CO2 [Moles/Vol] 26 mmol/L Normal 22-30 [facility] Comment on above: Order Comment: Speci men Type: BLOOD SPECIMENOrdering Facility: [facility] Address: [address] [place] [address] Performed By: #### 1 9123-9, 42544-6 ####[facility]ORATORYCLIA [id number] [place] [address] [place] Creatinine [Mass/Vol] 0.56 mg/dL Low 0.73-1.22 [facility] Comment on above: Order Comment: Speci men Type: BLOOD SPECIMENOrdering Facility: [facility] Address: [address] [place] [address] Performed By: #### 1 9123-9, 25473-1 ####[facility]ORATORYCLIA [id number] [place] [address] [place] GFR/1.73 sq M.predicted MDRD (S/P/Bld) [Vol rate/Area] mL/min/{1.73_m2} Normal [facility] Comment on above: Order Comment: Speci men Type: BLOOD SPECIMENOrdering Facility: [facility] Address: [address] [place] [address] Result Comment: >60e GFR (Estimated GFR) Units [...] actual GFR. Performed By: #### 1 9123-9, 09708-2 ####[facility]CLIA [id number] [place] [address] [place] Glucose [Mass/Vol] 134 mg/dL High 74-99 [facility] Comment on above: Order Comment: Shira feldman Type: BLOOD SPECIMENOrdering Facility: [facility] Address: [address] [place] [address] Result Comment: The [place] Diabetes [employer] (ADA) provides guidance for cutoff [...] Standards of Medical Care in Diabetes 2016, [place] [employer]. Diabetes Care. 2016.39(Suppl 1). Performed By: #### 1 9123-9, 41597-5 ####[facility]ORATORYCLIA [id number] [place] [address] [place] Potassium [Moles/Vol] 3.8 mmol/L Normal 3.7-5.1 [facility] Comment on above: Order Comment: Shira feldman Type: BLOOD SPECIMENOrdering Facility: [facility] Address: [address] [place], [place] [phone] Performed By: #### 1 9123-9, 01713-9 ####[facility]ORATORYCLIA [id number] [address] STATES [facility] Sodium [Moles/Vol] 140 mmol/L Normal 136-144 [facility] Comment on above: Order Comment: Speci men Type: BLOOD SPECIMENOrdering Facility: [facility] Address: [address] [place] [address] Performed By: #### 1 9123-9, 42197-4 ####[facility]ORATORYCLIA [id number] [address] [place] Urea nitrogen [Mass/Vol] 24 mg/dL Normal 9-24 [facility] Comment on above: Order Comment: Speci men Type: BLOOD SPECIMENOrdering Facility: [facility] Address: [address] [place] [address] Performed By: #### 1 9123-9, 91038-8 ####[facility]ORATORYCLIA [id number] [address] STATES [facility] CBC panel Auto (Bld)on 06-26 Erythrocyte distribution width (RBC) [Ratio] 15.9 % High 11.5-15.0 [facility] Comment on above: Order Comment: Speci men Type: BLOOD SPECIMENOrdering Facility: [facility] Address: [address] [place] [address] Performed By: #### 5 8410-2 ####[facility]ORATORYCLIA [id number] [address] STATES [facility] Hematocrit (Bld) [Volume fraction] 29.8 % Low 39.0-51.0 [facility] Comment on above: Order Comment: Speci men Type: BLOOD SPECIMENOrdering Facility: [facility] Address: [address] [place] [address] Performed By: #### 5 8410-2 ####[facility]ORATORYCLIA [id number] [address] [place] Hemoglobin (Bld) [Mass/Vol] 9.1 g/dL Low 13.0-17.0 [facility] Comment on above: Order Comment: Speci men Type: BLOOD SPECIMENOrdering Facility: [facility] Address: [address] [place] [address] Performed By: #### 5 8410-2 ####[facility]ORATORYCLIA [id number] [address] MCH (RBC) [Entitic mass] 27.8 pg Normal 26.0-34.0 [facility] Comment on above: Order Comment: Speci men Type: BLOOD SPECIMENOrdering Facility: [facility] Address: [address] [place] [address] Performed By: #### 5 8410-2 ####[facility]ORATORYCLIA [id number] [address] MCHC (RBC) [Mass/Vol] 30.5 g/dL Normal 30.5-36.0 [facility] Comment on above: Order Comment: Speci men Type: BLOOD SPECIMENOrdering Facility: [facility] Address: [address] [place] [address] Performed By: #### 5 8410-2 ####[facility]ORATORYCLIA [id number] [address] MCV (RBC) [Entitic vol] 91.1 fL Normal 80.0-100.0 [facility] Comment on above: Order Comment: Speci men Type: BLOOD SPECIMENOrdering Facility: [facility] Address: [address] [place] [address] Performed By: #### 5 8410-2 ####[facility]ORATORYCLIA [id number] [address] Nucleated RBC (Bld) [#/Vol] 10*3/uL Normal <0.01 [facility] Comment on above: Order Comment: Speci men Type: BLOOD SPECIMENOrdering Facility: [facility] Address: [address] [place] [address] Performed By: #### 5 8410-2 ####[facility]ORATORYCLIA [id number] [address] [place] Platelet mean volume (Bld) [Entitic vol] 10.3 fL Normal 9.0-12.7 [facility] Comment on above: Order Comment: Speci men Type: BLOOD SPECIMENOrdering Facility: [facility] Address: [address] [place] [address] Performed By: #### 5 8410-2 ####[facility]ORATORYCLIA [id number] [address] [place] Platelets (Bld) [#/Vol] 336 10*3/uL Normal 150-400 [facility] Comment on above: Order Comment: Speci men Type: BLOOD SPECIMENOrdering Facility: [facility] Address: [address] [place] [address] Performed By: #### 5 8410-2 ####[facility]ORATORYCLIA [id number] [address] [place] RBC (Bld) [#/Vol] 3.27 10*6/uL Low 4.20-6.00 [facility] Comment on above: Order Comment: Speci men Type: BLOOD SPECIMENOrdering Facility: [facility] Address: [address] [place] [address] Performed By: #### 5 8410-2 ####[facility]ORATORYCLIA [id number] [address] [place] WBC (Bld) [#/Vol] 9.14 10*3/uL Normal 3.70-11.00 [facility] Comment on above: Order Comment: Speci men Type: BLOOD SPECIMENOrdering Facility: [facility] Address: [address] [place] [address] Performed By: #### 5 8410-2 ####[facility]ORATORYCLIA [id number] [address] [place] CONSULT PROGon 06-26-2021 CONSULT PROG Normal [facility] Magnesium SerPl-mCncon 02-20 -2022 Magnesium [Mass/Vol] 2.2 mg/dL Normal 1.7-2.3 [facility] Comment on above: Order Comment: Speci men Type: BLOOD SPECIMENOrdering Facility: [facility] Address: [address] [place] [address] Performed By: #### 1 9123-9, 47971-1 ####[facility]ORATORYCLIA [id number] [address] [place] NURSING PROGon 06-26-2021 NURSING PROG Normal [facility] NURSING PROG Normal [facility] Basic metabolic 2000 panelon 06-25-2021 Anion gap [Moles/Vol] 8 mmol/L Low 9-18 [facility] Comment on above: Order Comment: Speci men Type: BLOOD SPECIMENOrdering Facility: [facility] Address: [address] [place] [address] Performed By: #### 2 4321-2, ####[facility]ORATORYCLIA [id number] [place] [address] [place] Calcium [Mass/Vol] 8.8 mg/dL Normal 8.5-10.2 [facility] Comment on above: Order Comment: Speci men Type: BLOOD SPECIMENOrdering Facility: [facility] Address: [address] [place] [address] Performed By: #### 2 4321-2, ####[facility]ORATORYCLIA [id number] [place] [address] [place] Chloride [Moles/Vol] 105 mmol/L Normal 97-105 [facility] Comment on above: Order Comment: Speci men Type: BLOOD SPECIMENOrdering Facility: [facility] Address: [address] [place] [address] Performed By: #### 2 4321-2, ####[facility]ORATORYCLIA [id number] [place] [address] [place] CO2 [Moles/Vol] 27 mmol/L Normal 22-30 [facility] Comment on above: Order Comment: Speci francia Type: BLOOD SPECIMENOrdering Facility: [facility] Address: [address] [id number] Performed By: #### 2 432-, ####[facility] LABORATORYCLIA [id number] [place] [address] [place] Creatinine [Mass/Vol] 0.59 mg/dL Low 0.73-1.22 [facility] Comment on above: Order Comment: Speci men Type: BLOOD SPECIMENOrdering Facility: [facility] Address: [address] [place] [address] Performed By: #### 2 43205-08, ####[facility]ITALCLIA [id number] [place] [address] [place] GFR/1.73 sq M.predicted MDRD (S/P/Bld) [Vol rate/Area] mL/min/{1.73_m2} Normal [facility] Comment on above: Order Comment: Shira francia Type: BLOOD SPECIMENOrdering Facility: [facility] Address: [address] [place] [address] Result Comment: >60e GFR (Estimated GFR) Units [...] actual GFR. Performed By: #### 2 432-, ####[facility] LABORATORYCLIA [id number] [place] [address] [place] Glucose [Mass/Vol] 132 mg/dL High 74-99 [facility] Comment on above: Order Comment: Johncara feldman Type: BLOOD SPECIMENOrdering Facility: [facility] Address: [address] [place], [place] [phone] Result Comment: The [place] [employer] (ADA) provides guidance for cutoff [...] Standards of Medical Care in Diabetes 2016, [place] [employer]. Diabetes Care. 2016.39(Suppl 1). Performed By: #### 2 4320-06, ####[facility] LABORATORYCLIA [id number] [place] [address] [place] Potassium [Moles/Vol] 3.9 mmol/L Normal 3.7-5.1 [facility] Comment on above: Order Comment: Speci men Type: BLOOD SPECIMENOrdering Facility: [facility] Address: [address] [address] Performed By: #### 2 4320-06, ####[facility]ORATORYCLIA [id number] [place] [address] [place] Sodium [Moles/Vol] 140 mmol/L Normal 136-144 [facility] Comment on above: Order Comment: Speci men Type: BLOOD SPECIMENOrdering Facility: [facility] Address: [address] [address] Performed By: #### 2 4320-06, ####[facility]ORATORYCLIA [id number] [place] [address] [place] Urea nitrogen [Mass/Vol] 24 mg/dL Normal 9-24 [facility] Comment on above: Order Comment: Speci men Type: BLOOD SPECIMENOrdering Facility: [facility] Address: [address] [address] Performed By: #### 2 4320-06, 82147-6 ####[facility] LABORATORYCLIA [id number] [address] [place] CASE MANAGEMon 06-25-2021 CASE MANAGEM Normal [facility] CBC panel Auto (Bld)on 06-25 Erythrocyte distribution width (RBC) [Ratio] 15.9 % High 11.5-15.0 [facility] Comment on above: Order Comment: Speci men Type: BLOOD SPECIMENOrdering Facility: [facility] Address: [address] [place] [address] Performed By: #### 5 8410-2 ####[facility] LABORATORYCLIA [id number] [address] Hematocrit (Bld) [Volume fraction] 31.0 % Low 39.0-51.0 [facility] Comment on above: Order Comment: Speci men Type: BLOOD SPECIMENOrdering Facility: [facility] Address: [address] [place] [address] Performed By: #### 5 8410-2 ####[facility]ORATORYCLIA [id number] [address] Hemoglobin (Bld) [Mass/Vol] 9.4 g/dL Low 13.0-17.0 [facility] Comment on above: Order Comment: Speci men Type: BLOOD SPECIMENOrdering Facility: [facility] Address: [address] [place] [address] Performed By: #### 5 8410-2 ####[facility] LABORATORYCLIA [id number] [address] [place] MCH (RBC) [Entitic mass] 28.1 pg Normal 26.0-34.0 [facility] Comment on above: Order Comment: Speci men Type: BLOOD SPECIMENOrdering Facility: [facility] Address: [address] [place] [address] Performed By: #### 5 8410-2 ####[facility]ORATORYCLIA [id number] [address] [place] MCHC (RBC) [Mass/Vol] 30.3 g/dL Low 30.5-36.0 [facility] Comment on above: Order Comment: Speci men Type: BLOOD SPECIMENOrdering Facility: [facility] Address: [address] [place] [address] Performed By: #### 5 8410-2 ####[facility]ORATORYCLIA [id number] [address] [place] MCV (RBC) [Entitic vol] 92.5 fL Normal 80.0-100.0 [facility] Comment on above: Order Comment: Speci men Type: BLOOD SPECIMENOrdering Facility: [facility] Address: [address] [place] [address] Performed By: #### 5 8410-2 ####[facility]ORATORYCLIA [id number] [address] [place] [facility] Nucleated RBC (Bld) [#/Vol] 10*3/uL Normal <0.01 [facility] Comment on above: Order Comment: Speci men Type: BLOOD SPECIMENOrdering Facility: [facility] Address: [address] [place] [address] Performed By: #### 5 8410-2 ####[facility]ORATORYCLIA [id number] [address] [place] Platelet mean volume (Bld) [Entitic vol] 10.5 fL Normal 9.0-12.7 [facility] Comment on above: Order Comment: Speci men Type: BLOOD SPECIMENOrdering Facility: [facility] Address: [address] [place] [address] Performed By: #### 5 8410-2 ####[facility]ATORYCLIA [id number] [address] [place] Platelets (Bld) [#/Vol] 311 10*3/uL Normal 150-400 [facility] Comment on above: Order Comment: Speci men Type: BLOOD SPECIMENOrdering Facility: [facility] Address: [address] [place] [address] Performed By: #### 5 8410-2 ####[facility]ORATORYCLIA [id number] [address] [place] [facility] RBC (Bld) [#/Vol] 3.35 10*6/uL Low 4.20-6.00 [facility] Comment on above: Order Comment: Speci men Type: BLOOD SPECIMENOrdering Facility: [facility] Address: [address] [place] [address] Performed By: #### 5 8410-2 ####[facility]ORATORYCLIA [id number] [address] OF [facility] WBC (Bld) [#/Vol] 9.57 10*3/uL Normal 3.70-11.00 [facility] Comment on above: Order Comment: Speci men Type: BLOOD SPECIMENOrdering Facility: [facility] Address: [address] [place] [address] Performed By: #### 5 8410-2 ####[facility]ORATORYCLIA [id number] [address] [place] Magnesium SerPl-mCncon 06-25 Magnesium [Mass/Vol] 2.4 mg/dL High 1.7-2.3 [facility] Comment on above: Order Comment: Speci men Type: BLOOD SPECIMENOrdering Facility: [facility] Address: [address] [place] [address] Performed By: #### 2 4321-2, 47042-4 ####[facility]ORATORYCLIA [id number] [address] [place] Basic metabolic 2000 panelon 06-24-2021 Anion gap [Moles/Vol] 9 mmol/L Normal -18 [facility] Comment on above: Order Comment: Speci men Type: BLOOD SPECIMENOrdering Facility: [facility] Address: [address] [place] [address] Performed By: #### 1 9123-9, 58347-8 ####[facility]ORATORYCLIA [id number] [place] [address] [place] Calcium [Mass/Vol] 8.6 mg/dL Normal 8.5-10.2 [facility] Comment on above: Order Comment: Speci men Type: BLOOD SPECIMENOrdering Facility: [facility] Address: [address] [place] [address] Performed By: #### 1 9123-9, 13244-6 ####[facility]ORATORYCLIA [id number] [place] [address] [place] Chloride [Moles/Vol] 103 mmol/L Normal 97-105 [facility] Comment on above: Order Comment: Speci men Type: BLOOD SPECIMENOrdering Facility: [facility] Address: [address] [place] [address] Performed By: #### 1 9123-9, 34806-2 ####[facility]ORATORYCLIA [id number] [address] [place] CO2 [Moles/Vol] 26 mmol/L Normal 22-30 [facility] Comment on above: Order Comment: Speci men Type: BLOOD SPECIMENOrdering Facility: [facility] Address: [address] [place] [address] Performed By: #### 1 9123-9, 59866-3 ####[facility]ORATORYCLIA [id number] [place] [address] [place] Creatinine [Mass/Vol] 0.60 mg/dL Low 0.73-1.22 [facility] Comment on above: Order Comment: Speci men Type: BLOOD SPECIMENOrdering Facility: [facility] Address: [address] [place] [address] Performed By: #### 1 9123-9, 33531-4 ####[facility]ORATORYCLIA [id number] [place] [address] [place] GFR/1.73 sq M.predicted MDRD (S/P/Bld) [Vol rate/Area] mL/min/{1.73_m2} Normal [facility] Comment on above: Order Comment: Shira feldman Type: BLOOD SPECIMENOrdering Facility: [facility] Address: [address] [place], [place] [address] Result Comment: >60e GFR (Estimated GFR) Units [...] actual GFR. Performed By: #### 1 9123-9, 42179-1 ####[facility]ORATORYCLIA [id number] [place] [address] [place] Glucose [Mass/Vol] 126 mg/dL High 74-99 [facility] Comment on above: Order Comment: Johncara feldman Type: BLOOD SPECIMENOrdering Facility: [facility] Address: [address] [place] [place] [phone] Result Comment: The [place] [employer] (ADA) provides guidance for cutoff [...] Standards of Medical Care in Diabetes 2016, [place] [employer]. Diabetes Care. 2016.39(Suppl 1). Performed By: #### 1 9123-9, 35011-4 ####[facility] LABORATORYCLIA [id number] [place] [address] [place] Potassium [Moles/Vol] 3.9 mmol/L Normal 3.7-5.1 [facility] Comment on above: Order Comment: Speci men Type: BLOOD SPECIMENOrdering Facility: [facility] Address: [address] [place] [address] Performed By: #### 1 9123-9, 28692-1 ####[facility]ORATORYCLIA [id number] [address] [place] [facility] Sodium [Moles/Vol] 138 mmol/L Normal 136-144 [facility] Comment on above: Order Comment: Speci men Type: BLOOD SPECIMENOrdering Facility: [facility] Address: [address] [place] [address] Performed By: #### 1 9123-9, 44655-1 ####[facility]ORATORYCLIA [id number] [address] [place] Urea nitrogen [Mass/Vol] 24 mg/dL Normal 9-24 [facility] Comment on above: Order Comment: Speci men Type: BLOOD SPECIMENOrdering Facility: [facility] Address: [address] [place] [address] Performed By: #### 1 9123-9, 98623-3 ####[facility]ORATORYCLIA [id number] [address] OF [facility] CASE MANAGEMon 06-24-2021 CASE MANAGEM Normal [facility] CASE MANAGEM Normal [facility] CASE MANAGEM Normal [facility] CBC panel Auto (Bld)on 06-24 Erythrocyte distribution width (RBC) [Ratio] 16.1 % High 11.5-15.0 [facility] Comment on above: Order Comment: Speci men Type: BLOOD SPECIMENOrdering Facility: [facility] Address: [address] [place] [address] Performed By: #### 5 8410-2 ####[facility]ORATORYCLIA [id number] [address] [place] Hematocrit (Bld) [Volume fraction] 31.7 % Low 39.0-51.0 [facility] Comment on above: Order Comment: Speci men Type: BLOOD SPECIMENOrdering Facility: [facility] Address: [address] [place] [address] Performed By: #### 5 8410-2 ####[facility]ORATORYCLIA [id number] [address] Hemoglobin (Bld) [Mass/Vol] 9.7 g/dL Low 13.0-17.0 [facility] Comment on above: Order Comment: Speci men Type: BLOOD SPECIMENOrdering Facility: [facility] Address: [address] [place] [address] Performed By: #### 5 8410-2 ####[facility]ORATORYCLIA [id number] [address] MCH (RBC) [Entitic mass] 28.0 pg Normal 26.0-34.0 [facility] Comment on above: Order Comment: Speci men Type: BLOOD SPECIMENOrdering Facility: [facility] Address: [address] [place] [address] Performed By: #### 5 8410-2 ####[facility]ORATORYCLIA [id number] [address] MCHC (RBC) [Mass/Vol] 30.6 g/dL Normal 30.5-36.0 [facility] Comment on above: Order Comment: Speci men Type: BLOOD SPECIMENOrdering Facility: [facility] Address: [address] [place] [address] Performed By: #### 5 8410-2 ####[facility]ORATORYCLIA [id number] [address] MCV (RBC) [Entitic vol] 91.4 fL Normal 80.0-100.0 [facility] Comment on above: Order Comment: Speci men Type: BLOOD SPECIMENOrdering Facility: [facility] Address: [address] [place] [address] Performed By: #### 5 8410-2 ####[facility]ATORYCLIA [id number] [address] Nucleated RBC (Bld) [#/Vol] 10*3/uL Normal <0.01 [facility] Comment on above: Order Comment: Speci men Type: BLOOD SPECIMENOrdering Facility: [facility] Address: [address] [place] [address] Performed By: #### 5 8410-2 ####[facility]ORATORYCLIA [id number] [address] [place] Platelet mean volume (Bld) [Entitic vol] 11.0 fL Normal 9.0-12.7 [facility] Comment on above: Order Comment: Speci men Type: BLOOD SPECIMENOrdering Facility: [facility] Address: [address] [place] [address] Performed By: #### 5 8410-2 ####[facility]ORATORYCLIA [id number] [address] Platelets (Bld) [#/Vol] 358 10*3/uL Normal 150-400 [facility] Comment on above: Order Comment: Speci men Type: BLOOD SPECIMENOrdering Facility: [facility] Address: [address] [place] [address] Performed By: #### 5 8410-2 ####[facility]ATORYCLIA [id number] [address] [place] RBC (Bld) [#/Vol] 3.47 10*6/uL Low 4.20-6.00 [facility] Comment on above: Order Comment: Speci men Type: BLOOD SPECIMENOrdering Facility: [facility] Address: [address] [place] [address] Performed By: #### 5 8410-2 ####[facility]ORATORYCLIA [id number] [address] [place] WBC (Bld) [#/Vol] 10.07 10*3/uL Normal 3.70-11.00 [facility] Comment on above: Order Comment: Speci men Type: BLOOD SPECIMENOrdering Facility: [facility] Address: [address] [place] [address] Performed By: #### 5 8410-2 ####[facility]ORATORYCLIA [id number] [place] [address] [place] Magnesium SerPl-mCncon 06-24 Magnesium [Mass/Vol] 2.3 mg/dL Normal 1.7-2.3 [facility] Comment on above: Order Comment: Speci men Type: BLOOD SPECIMENOrdering Facility: [facility] Address: [address] [place] [address] Performed By: #### 1 9123-9, 10250-1 ####[facility]ORATORYCLIA [id number] [place] [address] [place] ALLIED HEALTHon 06-23-2021 ALLIED HEALTH Normal [facility] Basic metabolic 2000 panelon 06-23-2021 Anion gap [Moles/Vol] 9 mmol/L Normal 9-18 [facility] Comment on above: Order Comment: Speci men Type: BLOOD SPECIMENOrdering Facility: [facility] Address: [address] [place] [address] Performed By: #### 1 9123-9, 58172-5 ####[facility]ORATORYCLIA [id number] [place] [address] [place] Calcium [Mass/Vol] 8.4 mg/dL Low 8.5-10.2 [facility] Comment on above: Order Comment: Speci men Type: BLOOD SPECIMENOrdering Facility: [facility] Address: [address] [place], [place] [address] Performed By: #### 1 9123-9, 89939-0 ####[facility]ORATORYCLIA [id number] [place] [address] [place] Chloride [Moles/Vol] 104 mmol/L Normal 97-105 [facility] Comment on above: Order Comment: Speci men Type: BLOOD SPECIMENOrdering Facility: [facility] Address: [address] [place] [address] Performed By: #### 1 91239, ####[facility]ORATORYCLIA [id number] [place] [address] [place] [facility] CO2 [Moles/Vol] 26 mmol/L Normal 22-30 [facility] Comment on above: Order Comment: Speci men Type: BLOOD SPECIMENOrdering Facility: [facility] Address: [address] [place] [address] Performed By: #### 1 919, ####[facility] [id number] [place] [address] [place] Creatinine [Mass/Vol] 0.62 mg/dL Low 0.73-1.22 [facility] Comment on above: Order Comment: Speci men Type: BLOOD SPECIMENOrdering Facility: [facility] Address: [address] [place] [address] Performed By: #### 1 91239, ####[facility] [id number] [address] [place] GFR/1.73 sq M.predicted MDRD (S/P/Bld) [Vol rate/Area] mL/min/{1.73_m2} Normal [facility] Comment on above: Order Comment: Speci men Type: BLOOD SPECIMENOrdering Facility: [facility] Address: [address] [place] [address] Result Comment: >60e GFR (Estimated GFR) Units [...] actual GFR. Performed By: #### 1 9123-9, 11336-0 ####[facility]ORATORYCLIA [id number] [place] [address] [place] Glucose [Mass/Vol] 111 mg/dL High 74-99 [facility] Comment on above: Order Comment: Shira men Type: BLOOD SPECIMENOrdering Facility: [facility] Address: [address] [place] [address] Result Comment: The [place] [employer] (ADA) provides guidance for cutoff [...] Standards of Medical Care in Diabetes 2016, [place] [employer]. Diabetes Care. 2016.39(Suppl 1). Performed By: #### 1 9123-9, 70333-4 ####[facility]ORATORYCLIA [id number] [place] [address] [place] Potassium [Moles/Vol] 4.1 mmol/L Normal 3.7-5.1 [facility] Comment on above: Order Comment: Shira feldman Type: BLOOD SPECIMENOrdering Facility: [facility] Address: [address] [place] [address] Performed By: #### 1 9123-9, 09616-1 ####[facility]ATORYCLIA [id number] [place] [address] [place] Sodium [Moles/Vol] 139 mmol/L Normal 136-144 [facility] Comment on above: Order Comment: Shira francia Type: BLOOD SPECIMENOrdering Facility: [facility] Address: [address] [place] [address] Performed By: #### 1 9123-9, 79618-6 ####[facility]ORATORYCLIA [id number] [place] [address] [place] Urea nitrogen [Mass/Vol] 26 mg/dL High 9-24 [facility] Comment on above: Order Comment: Speci men Type: BLOOD SPECIMENOrdering Facility: [facility] Address: [address] [place] [address] Performed By: #### 1 9123-9, 33583-4 ####[facility]ORATORYCLIA [id number] [address] [place] CASE MANAGEMon 06-23-2021 CASE MANAGEM Normal [facility] CBC panel Auto (Bld)on 06-23 Erythrocyte distribution width (RBC) [Ratio] 16.0 % High 11.5-15.0 [facility] Comment on above: Order Comment: Speci men Type: BLOOD SPECIMENOrdering Facility: [facility] Address: [address] [place] [address] Performed By: #### 5 8410-2 ####[facility]ORATORYCLIA [id number] [address] [place] Hematocrit (Bld) [Volume fraction] 31.1 % Low 39.0-51.0 [facility] Comment on above: Order Comment: Speci men Type: BLOOD SPECIMENOrdering Facility: [facility] Address: [address] [place] [address] Performed By: #### 5 8410-2 ####[facility]ORATORYCLIA [id number] [place] [address] [place] Hemoglobin (Bld) [Mass/Vol] 9.5 g/dL Low 13.0-17.0 [facility] Comment on above: Order Comment: Speci men Type: BLOOD SPECIMENOrdering Facility: [facility] Address: [address] [place] [address] Performed By: #### 5 8410-2 ####[facility]ORATORYCLIA [id number] [address] [place] MCH (RBC) [Entitic mass] 28.1 pg Normal 26.0-34.0 [facility] Comment on above: Order Comment: Speci men Type: BLOOD SPECIMENOrdering Facility: [facility] Address: [address] [place] [address] Performed By: #### 5 8410-2 ####[facility]ORATORYCLIA [id number] [address] MCHC (RBC) [Mass/Vol] 30.5 g/dL Normal 30.5-36.0 [facility] Comment on above: Order Comment: Speci men Type: BLOOD SPECIMENOrdering Facility: [facility] Address: [address] [place] [address] Performed By: #### 5 8410-2 ####[facility]ORATORYCLIA [id number] [address] MCV (RBC) [Entitic vol] 92.0 fL Normal 80.0-100.0 [facility] Comment on above: Order Comment: Speci men Type: BLOOD SPECIMENOrdering Facility: [facility] Address: [address] [place] [address] Performed By: #### 5 8410-2 ####[facility]ORATORYCLIA [id number] [address] Nucleated RBC (Bld) [#/Vol] 10*3/uL Normal <0.01 [facility] Comment on above: Order Comment: Speci men Type: BLOOD SPECIMENOrdering Facility: [facility] Address: [address] [place] [address] Performed By: #### 5 8410-2 ####[facility]ORATORYCLIA [id number] [address] Platelet mean volume (Bld) [Entitic vol] 11.0 fL Normal 9.0-12.7 [facility] Comment on above: Order Comment: Speci men Type: BLOOD SPECIMENOrdering Facility: [facility] Address: [address] [place] [address] Performed By: #### 5 8410-2 ####[facility]ORATORYCLIA [id number] [address] [facility] Platelets (Bld) [#/Vol] 361 10*3/uL Normal 150-400 [facility] Comment on above: Order Comment: Speci men Type: BLOOD SPECIMENOrdering Facility: [facility] Address: [address] [place] [address] Performed By: #### 5 8410-2 ####[facility]ORATORYCLIA [id number] [place] [address] [place] RBC (Bld) [#/Vol] 3.38 10*6/uL Low 4.20-6.00 [facility] Comment on above: Order Comment: Speci men Type: BLOOD SPECIMENOrdering Facility: [facility] Address: [address] [place] [address] Performed By: #### 5 8410-2 ####[facility]ORATORYCLIA [id number] [address] WBC (Bld) [#/Vol] 9.02 10*3/uL Normal 3.70-11.00 [facility] Comment on above: Order Comment: Speci men Type: BLOOD SPECIMENOrdering Facility: [facility] Address: [address] [place] [address] Performed By: #### 5 8410-2 ####[facility]ORATORYCLIA [id number] [address] CONSULT PROGon 06-23-2021 CONSULT PROG Normal [facility] CONSULT PROG Normal [facility] Magnesium SerPl-mCncon 06-23 Magnesium [Mass/Vol] 2.4 mg/dL High 1.7-2.3 [facility] Comment on above: Order Comment: Speci men Type: BLOOD SPECIMENOrdering Facility: [facility] Address: [address] [place] [address] Performed By: #### 1 9123-9, 60062-6 ####[facility]ATORYCLIA [id number] [address] THERAPY NTon 06-23-2021 THERAPY NT Normal [facility] Vancomycin random [Mass/Vol] on 06-23-2021 Vancomycin [Mass/Vol] 22.8 ug/mL High 10.0-20.0 [facility] Comment on above: Order Comment: Speci men Type: BLOOD SPECIMENOrdering Facility: [facility] Address: [address] [place] [address] Result Comment: Refe rence ranges and high/low indicator flags are provided as general guidelines only. The treating physician must determine appropriate target levels/dosing based on the specific clinical situation. Performed By: #### 4 091-5 ####[facility] LABORATORYCLIA [id number] [place] [address] [place] XR MOD BARIUM SWALLOW W SPEE Lore 06-23-2021 XR MOD BARIUM SWALLOW W SPEECH Normal [facility] Basic metabolic 2000 panelon 06-22-2021 Anion gap [Moles/Vol] 6 mmol/L Low 9-18 [facility] Comment on above: Order Comment: Speci men Type: BLOOD SPECIMENOrdering Facility: [facility] Address: [address] [place] [address] Performed By: #### 2 4321-2, ####[facility]ORATORYCLIA [id number] [place] [address] [place] Calcium [Mass/Vol] 8.5 mg/dL Normal 8.5-10.2 [facility] Comment on above: Order Comment: Speci men Type: BLOOD SPECIMENOrdering Facility: [facility] Address: [address] [address] Performed By: #### 2 4321-2, ####[facility] LABORATORYCLIA [id number] [place] [address] [place] Chloride [Moles/Vol] 105 mmol/L Normal 97-105 [facility] Comment on above: Order Comment: Speci men Type: BLOOD SPECIMENOrdering Facility: [facility] Address: [address] [place] [address] Performed By: #### 2 43205-08, ####[facility] LABORATORYCLIA [id number] [place] [address] [place] CO2 [Moles/Vol] 26 mmol/L Normal 22-30 [facility] Comment on above: Order Comment: Speci men Type: BLOOD SPECIMENOrdering Facility: [facility] Address: [address] [place] [address] Performed By: #### 2 4320-06, ####[facility]ITAL[facility]IA [id number] [place] [address] [place] Creatinine [Mass/Vol] 0.56 mg/dL Low 0.73-1.22 [facility] Comment on above: Order Comment: Speci men Type: BLOOD SPECIMENOrdering Facility: [facility] Address: [address] [place] [address] Performed By: #### 2 43205-08, ####[facility] [id number] [address] [place] GFR/1.73 sq M.predicted MDRD (S/P/Bld) [Vol rate/Area] mL/min/{1.73_m2} Normal [facility] Comment on above: Order Comment: Speci men Type: BLOOD SPECIMENOrdering Facility: [facility] Address: [address] [place] [address] Result Comment: >60e GFR (Estimated GFR) Units [...] actual GFR. Performed By: #### 2 43205-08, ####[facility]ORATORYCLIA [id number] [place] [address] [place] Glucose [Mass/Vol] 120 mg/dL High 74-99 [facility] Comment on above: Order Comment: Shira feldman Type: BLOOD SPECIMENOrdering Facility: [facility] Address: [address] [place] [address] Result Comment: The [place] [employer] Association (ADA) provides guidance for cutoff [...] Standards of Medical Care in Diabetes 2016, [place] [employer]. Diabetes Care. 2016.39(Suppl 1). Performed By: #### 2 ####[facility]ATORYCLIA [id number] [place] [address] [place] Potassium [Moles/Vol] 4.0 mmol/L Normal 3.7-5.1 [facility] Comment on above: Order Comment: Shira feldman Type: BLOOD SPECIMENOrdering Facility: [facility] Address: [address] [place] [address] Performed By: #### 2 ####[facility] LABORATORYCLIA [id number] [place] [address] [place] Sodium [Moles/Vol] 137 mmol/L Normal 136-144 [facility] Comment on above: Order Comment: Shira feldman Type: BLOOD SPECIMENOrdering Facility: [facility] Address: [address] [place] [address] Performed By: #### 2 ####[facility] LABORATORYCLIA [id number] [place] [address] [place] Urea nitrogen [Mass/Vol] 25 mg/dL High 9-24 [facility] Comment on above: Order Comment: Speci men Type: BLOOD SPECIMENOrdering Facility: [facility] Address: [address] [place] [address] Performed By: #### 2 4321-2, 27052-9 ####[facility] LABORATORYCLIA [id number] [address] [place] CASE MANAGEMon 06-22-2021 CASE MANAGEM Normal [facility] CBC panel Auto (Bld)on 06-22 Erythrocyte distribution width (RBC) [Ratio] 16.0 % High 11.5-15.0 [facility] Comment on above: Order Comment: Speci men Type: BLOOD SPECIMENOrdering Facility: [facility] Address: [address] [place] [address] Performed By: #### 5 8410-2 ####[facility]ORATORYCLIA [id number] [address] [place] Hematocrit (Bld) [Volume fraction] 30.5 % Low 39.0-51.0 [facility] Comment on above: Order Comment: Speci men Type: BLOOD SPECIMENOrdering Facility: [facility] Address: [address] [place] [address] Performed By: #### 5 8410-2 ####[facility]ORATORYCLIA [id number] [place] [address] [place] Hemoglobin (Bld) [Mass/Vol] 9.3 g/dL Low 13.0-17.0 [facility] Comment on above: Order Comment: Speci men Type: BLOOD SPECIMENOrdering Facility: [facility] Address: [address] [place] [address] Performed By: #### 5 8410-2 ####[facility]ORATORYCLIA [id number] [address] [place] MCH (RBC) [Entitic mass] 28.4 pg Normal 26.0-34.0 [facility] Comment on above: Order Comment: Speci men Type: BLOOD SPECIMENOrdering Facility: [facility] Address: [address] [place] [address] Performed By: #### 5 8410-2 ####[facility]ORATORYCLIA [id number] [address] MCHC (RBC) [Mass/Vol] 30.5 g/dL Normal 30.5-36.0 [facility] Comment on above: Order Comment: Speci men Type: BLOOD SPECIMENOrdering Facility: [facility] Address: [address] [place] [address] Performed By: #### 5 8410-2 ####[facility]ORATORYCLIA [id number] [address] MCV (RBC) [Entitic vol] 93.3 fL Normal 80.0-100.0 [facility] Comment on above: Order Comment: Speci men Type: BLOOD SPECIMENOrdering Facility: [facility] Address: [address] [place] [address] Performed By: #### 5 8410-2 ####[facility] LABORATORYCLIA [id number] [address] Nucleated RBC (Bld) [#/Vol] 10*3/uL Normal <0.01 [facility] Comment on above: Order Comment: Speci men Type: BLOOD SPECIMENOrdering Facility: [facility] Address: [address] [place] [address] Performed By: #### 5 8410-2 ####[facility]ORATORYCLIA [id number] [address] Platelet mean volume (Bld) [Entitic vol] 11.5 fL Normal 9.0-12.7 [facility] Comment on above: Order Comment: Speci men Type: BLOOD SPECIMENOrdering Facility: [facility] Address: [address] [place] [address] Performed By: #### 5 8410-2 ####[facility]ORATORYCLIA [id number] [address] Platelets (Bld) [#/Vol] 346 10*3/uL Normal 150-400 [facility] Comment on above: Order Comment: Speci men Type: BLOOD SPECIMENOrdering Facility: [facility] Address: [address] [place] [address] Performed By: #### 5 8410-2 ####[facility] LABORATORYCLIA [id number] [place] [address] [place] RBC (Bld) [#/Vol] 3.27 10*6/uL Low 4.20-6.00 [facility] Comment on above: Order Comment: Speci men Type: BLOOD SPECIMENOrdering Facility: [facility] Address: [address] [place] [address] Performed By: #### 5 8410-2 ####[facility] LABORATORYCLIA [id number] [address] [facility] WBC (Bld) [#/Vol] 9.44 10*3/uL Normal 3.70-11.00 [facility] Comment on above: Order Comment: Speci men Type: BLOOD SPECIMENOrdering Facility: [facility] Address: [address] [place] [address] Performed By: #### 5 8410-2 ####[facility] LABORATORYCLIA [id number] [address] [place] HEMOGLOBIN (HGB)on 2 Hemoglobin (Bld) [Mass/Vol] 9.7 g/dL Low 13.0-17.0 [facility] Comment on above: Order Comment: Speci men Type: BLOOD SPECIMENOrdering Facility: [facility] Address: [address] [place] [address] Performed By: #### H GB ####[facility] LABORATORYCLIA [id number] [address] [facility] Magnesium SerPl-mCncon 06-22 Magnesium [Mass/Vol] 2.4 mg/dL High 1.7-2.3 [facility] Comment on above: Order Comment: Speci men Type: BLOOD SPECIMENOrdering Facility: [facility] Address: [address] [place] [address] Performed By: #### 2 4321-2, ####[facility]ORATORYCLIA [id number] [address] [facility] THERAPY NTon 06-22-2021 THERAPY NT Normal [facility] THERAPY NT Normal [facility] aPTT PPPon 06-22-2021 aPTT Coag (PPP) [Time] 62.3 s High 23.0-32.4 [facility] Comment on above: Order Comment: Speci men Type: BLOOD SPECIMENOrdering Facility: [facility] Address: [address] [place] [address] Performed By: #### 1 4979-9 ####[facility] LABORATORYCLIA [id number] [address] [place] ALLIED HEALTHon 06-21-2021 ALLIED HEALTH Normal [facility] Basic metabolic 2000 panelon 06-21-2021 Anion gap [Moles/Vol] 8 mmol/L Low 9-18 [facility] Comment on above: Order Comment: Speci men Type: BLOOD SPECIMENOrdering Facility: [facility] Address: [address] [place] [address] Performed By: #### 2 4321-2, ####[facility]ORATORYCLIA [id number] [place] [address] [place] Calcium [Mass/Vol] 8.2 mg/dL Low 8.5-10.2 [facility] Comment on above: Order Comment: Speci men Type: BLOOD SPECIMENOrdering Facility: [facility] Address: [address] [place] [address] Performed By: #### 2 4321-2, ####[facility]ORATORYCLIA [id number] [address] [place] Chloride [Moles/Vol] 108 mmol/L High 97-105 [facility] Comment on above: Order Comment: Speci men Type: BLOOD SPECIMENOrdering Facility: [facility] Address: [address] [place] [address] Performed By: #### 2 432-2, ####[facility] LABORATORYCLIA [id number] [address] [place] [facility] CO2 [Moles/Vol] 24 mmol/L Normal 22-30 [facility] Comment on above: Order Comment: Speci men Type: BLOOD SPECIMENOrdering Facility: [facility] Address: [address] [place] [address] Performed By: #### 2 4321-2, ####[facility] LABORATORYCLIA [id number] [address] [facility] Creatinine [Mass/Vol] 0.61 mg/dL Low 0.73-1.22 [facility] Comment on above: Order Comment: Speci men Type: BLOOD SPECIMENOrdering Facility: [facility] Address: [address] [place] [address] Performed By: #### 2 43205-08, ####[facility] LABORATORYCLIA [id number] [address] [place] GFR/1.73 sq M.predicted MDRD (S/P/Bld) [Vol rate/Area] mL/min/{1.73_m2} Normal [facility] Comment on above: Order Comment: Speci men Type: BLOOD SPECIMENOrdering Facility: [facility] Address: [address] [place] [address] Result Comment: >60e GFR (Estimated GFR) Units [...] actual GFR. Performed By: #### 2 432-, ####[facility] LABORATORYCLIA [id number] [place] [address] [place] Glucose [Mass/Vol] 211 mg/dL High 74-99 [facility] Comment on above: Order Comment: Shira [facility] Type: BLOOD SPECIMENOrdering Facility: [facility] Address: [address] [place] [address] Result Comment: The [place] [employer] (ADA) provides guidance for cutoff [...] Standards of Medical Care in Diabetes 2016, [place] [employer]. Diabetes Care. 2016.39(Suppl 1). Performed By: #### 2 43205-08, ####[facility] LABORATORYCLIA [id number] [place] [address] [place] Potassium [Moles/Vol] 4.3 mmol/L Normal 3.7-5.1 [facility] Comment on above: Order Comment: Shira [facility] Type: BLOOD SPECIMENOrdering Facility: [facility] Address: [address] Performed By: #### 2 43205-08, ####[facility] LABORATORYCLIA [id number] [place] [address] [place] Sodium [Moles/Vol] 140 mmol/L Normal 136-144 [facility] Comment on above: Order Comment: Shira feldman Type: BLOOD SPECIMENOrdering Facility: [facility] Address: [address] [place] [address] Performed By: #### 2 1-2, ####[facility] LABORATORYCLIA [id number] [place] [address] [place] [facility] Urea nitrogen [Mass/Vol] 26 mg/dL High 9-24 [facility] Comment on above: Order Comment: Speci men Type: BLOOD SPECIMENOrdering Facility: [facility] Address: [address] [place] [address] Performed By: #### 2 4320-2, ####[facility] LABORATORYCLIA [id number] [address] CBC panel Auto (Bld)on 06-21 Erythrocyte distribution width (RBC) [Ratio] 16.1 % High 11.5-15.0 [facility] Comment on above: Order Comment: Speci men Type: BLOOD SPECIMENOrdering Facility: [facility] Address: [address] [place] [address] Performed By: #### 5 8410-2 ####[facility] LABORATORYCLIA [id number] [address] STATES [facility] Hematocrit (Bld) [Volume fraction] 29.7 % Low 39.0-51.0 [facility] Comment on above: Order Comment: Speci men Type: BLOOD SPECIMENOrdering Facility: [facility] Address: [address] [place] [address] Performed By: #### 5 8410-2 ####[facility] LABORATORYCLIA [id number] [address] STATES [place] [facility] Hemoglobin (Bld) [Mass/Vol] 9.2 g/dL Low 13.0-17.0 [facility] Comment on above: Order Comment: Speci men Type: BLOOD SPECIMENOrdering Facility: [facility] Address: [address] [place] [address] Performed By: #### 5 8410-2 ####[facility] LABORATORYCLIA [id number] [address] [place] MCH (RBC) [Entitic mass] 28.8 pg Normal 26.0-34.0 [facility] Comment on above: Order Comment: Speci men Type: BLOOD SPECIMENOrdering Facility: [facility] Address: [address] [place] [address] Performed By: #### 5 8410-2 ####[facility] LABORATORYCLIA [id number] [address] MCHC (RBC) [Mass/Vol] 31.0 g/dL Normal 30.5-36.0 [facility] Comment on above: Order Comment: Speci men Type: BLOOD SPECIMENOrdering Facility: [facility] Address: [address] [place] [address] Performed By: #### 5 8410-2 ####[facility] LABORATORYCLIA [id number] [address] MCV (RBC) [Entitic vol] 93.1 fL Normal 80.0-100.0 [facility] Comment on above: Order Comment: Speci men Type: BLOOD SPECIMENOrdering Facility: [facility] Address: [address] [place] [address] Performed By: #### 5 8410-2 ####[facility] LABORATORYCLIA [id number] [address] Nucleated RBC (Bld) [#/Vol] 10*3/uL Normal <0.01 [facility] Comment on above: Order Comment: Speci men Type: BLOOD SPECIMENOrdering Facility: [facility] Address: [address] [place] [address] Performed By: #### 5 8410-2 ####[facility] LABORATORYCLIA [id number] [address] Platelet mean volume (Bld) [Entitic vol] 11.6 fL Normal 9.0-12.7 [facility] Comment on above: Order Comment: Speci men Type: BLOOD SPECIMENOrdering Facility: [facility] Address: [address] [place] [address] Performed By: #### 5 8410-2 ####[facility] LABORATORYCLIA [id number] [place] [address] [place] Platelets (Bld) [#/Vol] 347 10*3/uL Normal 150-400 [facility] Comment on above: Order Comment: Speci men Type: BLOOD SPECIMENOrdering Facility: [facility] Address: [address] [place] [address] Performed By: #### 5 8410-2 ####[facility] LABORATORYCLIA [id number] [place] [address] [place] RBC (Bld) [#/Vol] 3.19 10*6/uL Low 4.20-6.00 [facility] Comment on above: Order Comment: Speci men Type: BLOOD SPECIMENOrdering Facility: [facility] Address: [address] [place] [address] Performed By: #### 5 8410-2 ####[facility] LABORATORYCLIA [id number] [address] [facility] WBC (Bld) [#/Vol] 10.29 10*3/uL Normal 3.70-11.00 [facility] Comment on above: Order Comment: Speci men Type: BLOOD SPECIMENOrdering Facility: [facility] Address: [address] [place] [address] Performed By: #### 5 8410-2 ####[facility] LABORATORYCLIA [id number] [address] [place] CONSULT PROGon 06-21-2021 CONSULT PROG Normal [facility] CONSULT PROG Normal [facility] Magnesium SerPl-mCncon 06-21 Magnesium [Mass/Vol] 2.5 mg/dL High 1.7-2.3 [facility] Comment on above: Order Comment: Speci men Type: BLOOD SPECIMENOrdering Facility: [facility] Address: [address] [place] [address] Performed By: #### 2 4321-2, 79870-4 ####[facility] LABORATORYCLIA [id number] [place] [address] [place] NUTRITIONon 06-21-2021 NUTRITION Normal [facility] XR CHEST 1V FRONTALon 2021 XR CHEST 1V FRONTAL Normal [facility] aPTT PPPon 06-21-2021 aPTT Coag (PPP) [Time] 68.5 s High 23.0-32.4 [facility] Comment on above: Order Comment: Speci men Type: BLOOD SPECIMENOrdering Facility: [facility] Address: [address] [place] [address] Performed By: #### 1 4979-9 ####[facility] LABORATORYCLIA [id number] [address] [place] aPTT Coag (PPP) [Time] 57.8 s High 23.0-32.4 [facility] Comment on above: Order Comment: Speci men Type: BLOOD SPECIMENOrdering Facility: [facility] Address: [address] [place] [address] Performed By: #### 1 4979-9 ####[facility] LABORATORYCLIA [id number] [place] [address] [place] Basic metabolic 2000 panelon 06-20-2021 Anion gap [Moles/Vol] 9 mmol/L Normal 9-18 [facility] Comment on above: Order Comment: Speci men Type: BLOOD SPECIMENOrdering Facility: [facility] Address: [address] [place] [address] Performed By: #### 2 4321-2, ####[facility] LABORATORYCLIA [id number] [place] [address] [place] Calcium [Mass/Vol] 8.3 mg/dL Low 8.5-10.2 [facility] Comment on above: Order Comment: Speci men Type: BLOOD SPECIMENOrdering Facility: [facility] Address: [address] [place] [address] Performed By: #### 2 4321-2, ####[facility] LABORATORYCLIA [id number] [address] [place] Chloride [Moles/Vol] 111 mmol/L High 97-105 [facility] Comment on above: Order Comment: Speci men Type: BLOOD SPECIMENOrdering Facility: [facility] Address: [address] [place] [address] Performed By: #### 2 4321-2, ####[facility] LABORATORYCLIA [id number] [place] [address] [place] CO2 [Moles/Vol] 24 mmol/L Normal 22-30 [facility] Comment on above: Order Comment: Speci men Type: BLOOD SPECIMENOrdering Facility: [facility] Address: [address] [place] [address] Performed By: #### 2 4321-2, ####[facility] LABORATORYCLIA [id number] [address] [place] Creatinine [Mass/Vol] 0.64 mg/dL Low 0.73-1.22 [facility] Comment on above: Order Comment: Speci men Type: BLOOD SPECIMENOrdering Facility: [facility] Address: [address] [place] [address] Performed By: #### 2 4321-2, ####[facility] LABORATORYCLIA [id number] [place] [address] [place] GFR/1.73 sq M.predicted MDRD (S/P/Bld) [Vol rate/Area] mL/min/{1.73_m2} Normal [facility] Comment on above: Order Comment: Speci men Type: BLOOD SPECIMENOrdering Facility: [facility] Address: [address] [place] [address] Result Comment: >60e GFR (Estimated GFR) Units [...] actual GFR. Performed By: #### 2 4320-06, ####[facility] LABORATORYCLIA [id number] [place] [address] [place] Glucose [Mass/Vol] 114 mg/dL High 74-99 [facility] Comment on above: Order Comment: Speci men Type: BLOOD SPECIMENOrdering Facility: [facility] Address: [address] [place], [place] [address] Result Comment: The [place] [employer] (ADA) provides guidance for cutoff [...] Standards of Medical Care in Diabetes 2016, [place] [employer]. Diabetes Care. 2016.39(Suppl 1). Performed By: #### 2 4320-06, ####[facility] LABORATORYCLIA [id number] [place] [address] [place] Potassium [Moles/Vol] 4.1 mmol/L Normal 3.7-5.1 [facility] Comment on above: Order Comment: Speci men Type: BLOOD SPECIMENOrdering Facility: [facility] Address: [address] [place] [address] Performed By: #### 2 4320-06, ####[facility] LABORATORYCLIA [id number] [place] [address] [place] Sodium [Moles/Vol] 144 mmol/L Normal 136-144 [facility] Comment on above: Order Comment: Speci men Type: BLOOD SPECIMENOrdering Facility: [facility] Address: [address] [place] [address] Performed By: #### 2 4321-2, 57800-4 ####[facility] LABORATORYCLIA [id number] [address] [place] Urea nitrogen [Mass/Vol] 27 mg/dL High 9-24 [facility] Comment on above: Order Comment: Speci men Type: BLOOD SPECIMENOrdering Facility: [facility] Address: [address] [place] [address] Performed By: #### 2 4321-2, 18411-0 ####[facility] LABORATORYCLIA [id number] [address] [place] CASE MANAGEMon 06-20-2021 CASE MANAGEM Normal [facility] CBC panel Auto (Bld)on 06-20 Erythrocyte distribution width (RBC) [Ratio] 15.9 % High 11.5-15.0 [facility] Comment on above: Order Comment: Speci men Type: BLOOD SPECIMENOrdering Facility: [facility] Address: [address] [place] [address] Performed By: #### 5 8410-2 ####[facility] LABORATORYCLIA [id number] [address] [place] Hematocrit (Bld) [Volume fraction] 31.0 % Low 39.0-51.0 [facility] Comment on above: Order Comment: Speci men Type: BLOOD SPECIMENOrdering Facility: [facility] Address: [address] [place] [address] Performed By: #### 5 8410-2 ####[facility] LABORATORYCLIA [id number] [place] [address] [place] Hemoglobin (Bld) [Mass/Vol] 9.2 g/dL Low 13.0-17.0 [facility] Comment on above: Order Comment: Speci men Type: BLOOD SPECIMENOrdering Facility: [facility] Address: [address] [place] [address] Performed By: #### 5 8410-2 ####[facility] LABORATORYCLIA [id number] [address] MCH (RBC) [Entitic mass] 27.4 pg Normal 26.0-34.0 [facility] Comment on above: Order Comment: Speci men Type: BLOOD SPECIMENOrdering Facility: [facility] Address: [address] [place] [address] Performed By: #### 5 8410-2 ####[facility] LABORATORYCLIA [id number] MCHC (RBC) [Mass/Vol] 29.7 g/dL Low 30.5-36.0 [facility] Comment on above: Order Comment: Speci men Type: BLOOD SPECIMENOrdering Facility: [facility] Address: [address] [place] [address] Performed By: #### 5 8410-2 ####[facility] LABORATORYCLIA [id number] MCV (RBC) [Entitic vol] 92.3 fL Normal 80.0-100.0 [facility] Comment on above: Order Comment: Speci men Type: BLOOD SPECIMENOrdering Facility: [facility] Address: [address] [place] [address] Performed By: #### 5 8410-2 ####[facility] LABORATORYCLIA [id number] [address] Nucleated RBC (Bld) [#/Vol] 10*3/uL Normal <0.01 [facility] Comment on above: Order Comment: Speci men Type: BLOOD SPECIMENOrdering Facility: [facility] Address: [address] [place] [address] Performed By: #### 5 8410-2 ####[facility] LABORATORYCLIA [id number] [address] Platelet mean volume (Bld) [Entitic vol] 11.5 fL Normal 9.0-12.7 [facility] Comment on above: Order Comment: Speci men Type: BLOOD SPECIMENOrdering Facility: [facility] Address: [address] [place] [address] Performed By: #### 5 8410-2 ####[facility] LABORATORYCLIA [id number] [address] [facility] Platelets (Bld) [#/Vol] 343 10*3/uL Normal 150-400 [facility] Comment on above: Order Comment: Speci men Type: BLOOD SPECIMENOrdering Facility: [facility] Address: [address] [place] [address] Performed By: #### 5 8410-2 ####[facility] LABORATORYCLIA [id number] [address] RBC (Bld) [#/Vol] 3.36 10*6/uL Low 4.20-6.00 [facility] Comment on above: Order Comment: Speci men Type: BLOOD SPECIMENOrdering Facility: [facility] Address: [address] [place] [address] Performed By: #### 5 8410-2 ####[facility] LABORATORYCLIA [id number] [address] WBC (Bld) [#/Vol] 10.71 10*3/uL Normal 3.70-11.00 [facility] Comment on above: Order Comment: Speci men Type: BLOOD SPECIMENOrdering Facility: [facility] Address: [address] [place] [address] Performed By: #### 5 8410-2 ####[facility] LABORATORYCLIA [id number] [address] CONSULT PROGon 06-20-2021 CONSULT PROG Normal [facility] HEMOGLOBIN (HGB)on 2 Hemoglobin (Bld) [Mass/Vol] 9.7 g/dL Low 13.0-17.0 [facility] Comment on above: Order Comment: Speci men Type: BLOOD SPECIMENOrdering Facility: [facility] Address: [address] [place] [address] Performed By: #### H GB ####[facility] LABORATORYCLIA [id number] [address] [place] Magnesium SerPl-mCncon 06-20 Magnesium [Mass/Vol] 2.5 mg/dL High 1.7-2.3 [facility] Comment on above: Order Comment: Speci men Type: BLOOD SPECIMENOrdering Facility: [facility] Address: [address] [place] [address] Performed By: #### 2 4321-2, 47433-9 ####[facility] LABORATORYCLIA [id number] [address] [facility] NURSING PROGon 06-20-2021 NURSING PROG Normal [facility] THERAPY NTon 06-20-2021 THERAPY NT Normal [facility] aPTT PPPon 06-20-2021 aPTT Coag (PPP) [Time] 93.5 s High 23.0-32.4 [facility] Comment on above: Order Comment: Speci men Type: BLOOD SPECIMENOrdering Facility: [facility] Address: [address] [place] [address] Performed By: #### 1 4979-9 ####[facility]ORATORYCLIA [id number] [address] aPTT Coag (PPP) [Time] 47.1 s High 23.0-32.4 [facility] Comment on above: Order Comment: Speci men Type: BLOOD SPECIMENOrdering Facility: [facility] Address: [address] [place] [address] Performed By: #### 1 4979-9 ####[facility]ORATORYCLIA [id number] [address] [place] Basic metabolic 2000 panelon 06-19-2021 Anion gap [Moles/Vol] 7 mmol/L Low 9-18 [facility] Comment on above: Order Comment: Speci men Type: BLOOD SPECIMENOrdering Facility: [facility] Address: [address] [place] [address] Performed By: #### 2 4321-2 ####[facility]ORATORYCLIA [id number] [place] [address] [place] Calcium [Mass/Vol] 8.1 mg/dL Low 8.5-10.2 [facility] Comment on above: Order Comment: Speci men Type: BLOOD SPECIMENOrdering Facility: [facility] Address: [address] [place] [address] Performed By: #### 2 4321-2 ####[facility]ORATORYCLIA [id number] [place] [address] [place] Chloride [Moles/Vol] 111 mmol/L High 97-105 [facility] Comment on above: Order Comment: Speci men Type: BLOOD SPECIMENOrdering Facility: [facility] Address: [address] [place] [address] Performed By: #### 2 4321-2 ####[facility]ORATORYCLIA [id number] [place] [address] [place] CO2 [Moles/Vol] 24 mmol/L Normal 22-30 [facility] Comment on above: Order Comment: Speci men Type: BLOOD SPECIMENOrdering Facility: [facility] Address: [address] [place] [address] Performed By: #### 2 4321-2 ####[facility]ORATORYCLIA [id number] [place] [address] [place] Creatinine [Mass/Vol] 0.71 mg/dL Low 0.73-1.22 [facility] Comment on above: Order Comment: Speci men Type: BLOOD SPECIMENOrdering Facility: [facility] Address: [address] [place] [address] Performed By: #### 2 4321-2 ####[facility]ORATORYCLIA [id number] [place] [address] [place] GFR/1.73 sq M.predicted MDRD (S/P/Bld) [Vol rate/Area] mL/min/{1.73_m2} Normal [facility] Comment on above: Order Comment: Shira feldman Type: BLOOD SPECIMENOrdering Facility: [facility] Address: [address] [place] [address] Result Comment: >60e GFR (Estimated GFR) Units [...] GFR. Performed By: #### 2 4321-2 ####[facility]IA [id number] [place] [address] [place] Glucose [Mass/Vol] 110 mg/dL High 74-99 [facility] Comment on above: Order Comment: Johncara feldman Type: BLOOD SPECIMENOrdering Facility: [facility] Address: [address] [place], [place] [address] Result Comment: The [place] [employer] (ADA) provides guidance for cutoff [...] Standards of Medical Care in Diabetes 2016, [place] [employer]. Diabetes Care. 2016.39(Suppl 1). Performed By: #### 2 4321-2 ####[facility] LABORATORYCLIA [id number] [place] [id number] [place] Potassium [Moles/Vol] 3.7 mmol/L Normal 3.7-5.1 [facility] Comment on above: Order Comment: Speci men Type: BLOOD SPECIMENOrdering Facility: [facility] Address: [address] [place] [address] Performed By: #### 2 4321-2 ####[facility]ORATORYCLIA [id number] [address] [facility] Sodium [Moles/Vol] 142 mmol/L Normal 136-144 [facility] Comment on above: Order Comment: Speci men Type: BLOOD SPECIMENOrdering Facility: [facility] Address: [address] [place] [address] Performed By: #### 2 4321-2 ####[facility]ORATORYCLIA [id number] [address] [facility] Urea nitrogen [Mass/Vol] 26 mg/dL High 9-24 [facility] Comment on above: Order Comment: Speci men Type: BLOOD SPECIMENOrdering Facility: [facility] Address: [address] [place] [address] Performed By: #### 2 4321-2 ####[facility]ORATORYCLIA [id number] [address] CBC panel Auto (Bld)on 06-19 Erythrocyte distribution width (RBC) [Ratio] 15.7 % High 11.5-15.0 [facility] Comment on above: Order Comment: Speci men Type: BLOOD SPECIMENOrdering Facility: [facility] Address: [address] [place] [address] Performed By: #### 5 8410-2 ####[facility]ORATORYCLIA [id number] [address] Hematocrit (Bld) [Volume fraction] 30.9 % Low 39.0-51.0 [facility] Comment on above: Order Comment: Speci men Type: BLOOD SPECIMENOrdering Facility: [facility] Address: [address] [place] [address] Performed By: #### 5 8410-2 ####[facility]ORATORYCLIA [id number] [address] [facility] Hemoglobin (Bld) [Mass/Vol] 9.5 g/dL Low 13.0-17.0 [facility] Comment on above: Order Comment: Speci men Type: BLOOD SPECIMENOrdering Facility: [facility] Address: [address] [place] [address] Performed By: #### 5 8410-2 ####[facility]ORATORYCLIA [id number] [address] MCH (RBC) [Entitic mass] 28.4 pg Normal 26.0-34.0 [facility] Comment on above: Order Comment: Speci men Type: BLOOD SPECIMENOrdering Facility: [facility] Address: [address] [place] [address] Performed By: #### 5 8410-2 ####[facility]ORATORYCLIA [id number] [address] MCHC (RBC) [Mass/Vol] 30.7 g/dL Normal 30.5-36.0 [facility] Comment on above: Order Comment: Speci men Type: BLOOD SPECIMENOrdering Facility: [facility] Address: [address] [place] [address] Performed By: #### 5 8410-2 ####[facility]ORATORYCLIA [id number] [address] MCV (RBC) [Entitic vol] 92.2 fL Normal 80.0-100.0 [facility] Comment on above: Order Comment: Speci men Type: BLOOD SPECIMENOrdering Facility: [facility] Address: [address] [place] [address] Performed By: #### 5 8410-2 ####[facility]ORATORYCLIA [id number] [address] [facility] Nucleated RBC (Bld) [#/Vol] 10*3/uL Normal <0.01 [facility] Comment on above: Order Comment: Speci men Type: BLOOD SPECIMENOrdering Facility: [facility] Address: [address] [place] [address] Performed By: #### 5 8410-2 ####[facility]ORATORYCLIA [id number] [address] [place] Platelet mean volume (Bld) [Entitic vol] 11.7 fL Normal 9.0-12.7 [facility] Comment on above: Order Comment: Speci men Type: BLOOD SPECIMENOrdering Facility: [facility] Address: [address] [place] [address] Performed By: #### 5 8410-2 ####[facility]ORATORYCLIA [id number] [address] [place] Platelets (Bld) [#/Vol] 323 10*3/uL Normal 150-400 [facility] Comment on above: Order Comment: Speci men Type: BLOOD SPECIMENOrdering Facility: [facility] Address: [address] [place] [address] Performed By: #### 5 8410-2 ####[facility]ORATORYCLIA [id number] [place] [address] [place] RBC (Bld) [#/Vol] 3.35 10*6/uL Low 4.20-6.00 [facility] Comment on above: Order Comment: Speci men Type: BLOOD SPECIMENOrdering Facility: [facility] Address: [address] [place], [place] [address] Performed By: #### 5 8410-2 ####[facility]ORATORYCLIA [id number] [address] [place] WBC (Bld) [#/Vol] 9.53 10*3/uL Normal 3.70-11.00 [facility] Comment on above: Order Comment: Speci men Type: BLOOD SPECIMENOrdering Facility: [facility] Address: [address] [place] [address] Performed By: #### 5 8410-2 ####[facility]ORATORYCLIA [id number] [address] [place] HEMOGLOBIN (HGB)on Hemoglobin (Bld) [Mass/Vol] 9.7 g/dL Low 13.0-17.0 [facility] Comment on above: Order Comment: Speci men Type: BLOOD SPECIMENOrdering Facility: [facility] Address: [address] [place] [address] Performed By: #### H GB ####[facility]ORATORYCLIA [id number] [address] [place] Magnesium SerPl-mCncon 06-19 Magnesium [Mass/Vol] 2.5 mg/dL High 1.7-2.3 [facility] Comment on above: Order Comment: Speci men Type: BLOOD SPECIMENOrdering Facility: [facility] Address: [address] [place] [address] Performed By: #### 1 9123-9, 2777-1 ####[facility]ITALCLIA [id number] [address] [place] NURSING PROGon 06-19-2021 NURSING PROG Normal [facility] Phosphate SerPl-mCncon 06-19 Phosphate [Mass/Vol] 2.6 mg/dL Low 2.7-4.8 [facility] Comment on above: Order Comment: Speci men Type: BLOOD SPECIMENOrdering Facility: [facility] Address: [address] [place] [address] Performed By: #### 1 9123-9, 2777-1 ####[facility]ITALCLIA [id number] [address] [place] aPTT PPPon 06-19-2021 aPTT Coag (PPP) [Time] 61.9 s High 23.0-32.4 [facility] Comment on above: Order Comment: Speci men Type: BLOOD SPECIMENOrdering Facility: [facility] Address: [address] [place] [address] Performed By: #### 1 4979-9 ####[facility]ORATORYCLIA [id number] [address] [place] aPTT Coag (PPP) [Time] 68.6 s High 23.0-32.4 [facility] Comment on above: Order Comment: Speci men Type: BLOOD SPECIMENOrdering Facility: [facility] Address: [address] [place] [address] Performed By: #### 1 4979-9 ####[facility]ORATORYCLIA [id number] [address] [place] aPTT Coag (PPP) [Time] 83.2 s High 23.0-32.4 [facility] Comment on above: Order Comment: Speci men Type: BLOOD SPECIMENOrdering Facility: [facility] Address: [address] [place] [address] Performed By: #### 1 4979-9 ####[facility]ORATORYCLIA [id number] [place] [address] [place] Basic metabolic 2000 panelon 06-18-2021 Anion gap [Moles/Vol] 7 mmol/L Low 9-18 [facility] Comment on above: Order Comment: Speci men Type: BLOOD SPECIMENOrdering Facility: [facility] Address: [address] [place] [address] Performed By: #### 2 4321-2, , 2776-05 ####[facility]ORATORYCLIA [id number] [place] [address] [place] Calcium [Mass/Vol] 8.2 mg/dL Low 8.5-10.2 [facility] Comment on above: Order Comment: Speci men Type: BLOOD SPECIMENOrdering Facility: [facility] Address: [address] [place] [address] Performed By: #### 2 4321-2, , 2776-05 ####[facility]ORATORYCLIA [id number] [address] [place] Chloride [Moles/Vol] 115 mmol/L High 97-105 [facility] Comment on above: Order Comment: Speci men Type: BLOOD SPECIMENOrdering Facility: [facility] Address: [address] [place], [place] [address] Performed By: #### 2 4321-2, , 2776-05 ####[facility]ORATORYCLIA [id number] [place] [address] [place] [facility] CO2 [Moles/Vol] 23 mmol/L Normal 22-30 [facility] Comment on above: Order Comment: Speci men Type: BLOOD SPECIMENOrdering Facility: [facility] Address: [address] [place], [place] [address] Performed By: #### 2 4321-2, , 2776-05 ####[facility]ITALCLIA [id number] [address] [place] Creatinine [Mass/Vol] 0.70 mg/dL Low 0.73-1.22 [facility] Comment on above: Order Comment: Speci men Type: BLOOD SPECIMENOrdering Facility: [facility] Address: [address] [place], [place] [address] Performed By: #### 2 4321-2, , 2776-05 ####[facility]ORATORYCLIA [id number] [address] [place] GFR/1.73 sq M.predicted MDRD (S/P/Bld) [Vol rate/Area] mL/min/{1.73_m2} Normal [facility] Comment on above: Order Comment: Speci men Type: BLOOD SPECIMENOrdering Facility: [facility] Address: [address] [place], [place] [address] Result Comment: >60e GFR (Estimated GFR) Units [...] 4321-2, , 2776-05 ####[facility]ORATORYCLIA [id number] [place] [address] [place] Glucose [Mass/Vol] 105 mg/dL High 74-99 [facility] Comment on above: Order Comment: Shira feldman Type: BLOOD SPECIMENOrdering Facility: [facility] Address: [address] [place] [address] Result Comment: The [place] [employer] (ADA) provides guidance for cutoff [...] Standards of Medical Care in Diabetes 2016, [place] [employer]. Diabetes Care. 2016.39(Suppl 1). Performed By: #### 2 4321-2, , 2776-05 ####[facility]ORATORYCLIA [id number] [place] [address] [place] Potassium [Moles/Vol] 4.1 mmol/L Normal 3.7-5.1 [facility] Comment on above: Order Comment: Shira feldman Type: BLOOD SPECIMENOrdering Facility: [facility] Address: [address] [place] [address] Performed By: #### 2 4321-2, , 2776-05 ####[facility]ORATORYCLIA [id number] [place] [address] [place] Sodium [Moles/Vol] 145 mmol/L High 136-144 [facility] Comment on above: Order Comment: Speci men Type: BLOOD SPECIMENOrdering Facility: [facility] Address: [address] [place] [address] Performed By: #### 2 4321-2, , 2776-05 ####[facility]ORATORYCLIA [id number] [address] [place] [facility] Urea nitrogen [Mass/Vol] 27 mg/dL High 9-24 [facility] Comment on above: Order Comment: Speci men Type: BLOOD SPECIMENOrdering Facility: [facility] Address: [address] [place] [address] Performed By: #### 2 4321-2, , 2776-05 ####[facility]ORATORYCLIA [id number] [address] [place] [facility] CALCIUM IONIZED Bon 06-18-19 Calcium.ionized (BldV) [Mass/Vol] 1.22 mmol/L Normal 1.08-1.30 [facility] Comment on above: Order Comment: Speci men Type: BLOOD SPECIMENOrdering Facility: [facility] Address: [address] [place] [address] Performed By: #### I CA ####[facility] LABORATORYCLIA [id number] [address] Calcium.ionized adjusted to pH 7.4 (Bld) [Moles/Vol] 1.23 mmol/L Normal 1.08-1.30 [facility] Comment on above: Order Comment: Speci men Type: BLOOD SPECIMENOrdering Facility: [facility] Address: [address] [place] [address] Performed By: #### I CA ####[facility]ORATORYCLIA [id number] [address] [place] CBC panel Auto (Bld)on 06-18 Erythrocyte distribution width (RBC) [Ratio] 15.8 % High 11.5-15.0 [facility] Comment on above: Order Comment: Speci men Type: BLOOD SPECIMENOrdering Facility: [facility] Address: [address] [place] [address] Performed By: #### 5 8410-2 ####[facility]ORATORYCLIA [id number] [address] Hematocrit (Bld) [Volume fraction] 29.5 % Low 39.0-51.0 [facility] Comment on above: Order Comment: Speci men Type: BLOOD SPECIMENOrdering Facility: [facility] Address: [address] [place] [address] Performed By: #### 5 8410-2 ####[facility]ORATORYCLIA [id number] [address] [facility] Hemoglobin (Bld) [Mass/Vol] 8.8 g/dL Low 13.0-17.0 [facility] Comment on above: Order Comment: Speci men Type: BLOOD SPECIMENOrdering Facility: [facility] Address: [address] [place] [address] Performed By: #### 5 8410-2 ####[facility]ORATORYCLIA [id number] [address] [facility] MCH (RBC) [Entitic mass] 27.4 pg Normal 26.0-34.0 [facility] Comment on above: Order Comment: Speci men Type: BLOOD SPECIMENOrdering Facility: [facility] Address: [address] [place] [address] Performed By: #### 5 8410-2 ####[facility]ORATORYCLIA [id number] [address] [place] MCHC (RBC) [Mass/Vol] 29.8 g/dL Low 30.5-36.0 [facility] Comment on above: Order Comment: Speci men Type: BLOOD SPECIMENOrdering Facility: [facility] Address: [address] [place] [address] Performed By: #### 5 8410-2 ####[facility]ORATORYCLIA [id number] [address] MCV (RBC) [Entitic vol] 91.9 fL Normal 80.0-100.0 [facility] Comment on above: Order Comment: Speci men Type: BLOOD SPECIMENOrdering Facility: [facility] Address: [address] [place] [address] Performed By: #### 5 8410-2 ####[facility] LABORATORYCLIA [id number] [place] [address] [place] Nucleated RBC (Bld) [#/Vol] 10*3/uL Normal <0.01 [facility] Comment on above: Order Comment: Speci men Type: BLOOD SPECIMENOrdering Facility: [facility] Address: [address] [place] [address] Performed By: #### 5 8410-2 ####[facility]ORATORYCLIA [id number] [place] [address] [place] Platelet mean volume (Bld) [Entitic vol] 11.9 fL Normal 9.0-12.7 [facility] Comment on above: Order Comment: Speci men Type: BLOOD SPECIMENOrdering Facility: [facility] Address: [address] [place] [address] Performed By: #### 5 8410-2 ####[facility]ORATORYCLIA [id number] [place] [address] [place] Platelets (Bld) [#/Vol] 291 10*3/uL Normal 150-400 [facility] Comment on above: Order Comment: Speci men Type: BLOOD SPECIMENOrdering Facility: [facility] Address: [address] Performed By: #### 5 8410-2 ####[facility] LABORATORYCLIA [id number] [place] [address] [place] RBC (Bld) [#/Vol] 3.21 10*6/uL Low 4.20-6.00 [facility] Comment on above: Order Comment: Speci men Type: BLOOD SPECIMENOrdering Facility: [facility] Address: [address] [place] [address] Performed By: #### 5 8410-2 ####[facility] LABORATORYCLIA [id number] [address] [facility] WBC (Bld) [#/Vol] 10.19 10*3/uL Normal 3.70-11.00 [facility] Comment on above: Order Comment: Speci men Type: BLOOD SPECIMENOrdering Facility: [facility] Address: [address] [place] [address] Performed By: #### 5 8410-2 ####[facility] LABORATORYCLIA [id number] [address] [place] FERRITIN BLDon 06-18-2021 Ferritin [Mass/Vol] 600.9 ng/mL High 30.3-565.7 [facility] Comment on above: Order Comment: Speci men Type: BLOOD SPECIMENOrdering Facility: [facility] Address: [address] [place] [address] Performed By: #### S ERFOL, IRON, FERR ####[facility] [id number] [address] FOLATE SERUMon 06-18-2021 Folate [Mass/Vol] 14.3 ng/mL Normal >4.7 [facility] Comment on above: Order Comment: Speci men Type: BLOOD SPECIMENOrdering Facility: [facility] Address: [address] [place] [address] Performed By: #### S ERFOL, IRON, FERR ####[facility] LABORATORYCLIA [id number] [address] Gas and Carbon monoxide pane l (BldV)on 06-18-2021 Base excess Calc (BldV) [Moles/Vol] 0.5 mmol/L Normal 0-2 [facility] Comment on above: Order Comment: Speci men Type: VENOUS BLOOD SPECIMENOrdering Facility: [facility] Address: [address] [place] [address] Performed By: #### 2 4344-4 ####[facility] LABORATORYCLIA [id number] [address] Body temperature 97.34 [degF] Normal [facility] Comment on above: Order Comment: Speci men Type: VENOUS BLOOD SPECIMENOrdering Facility: [facility] Address: [address] [place] [address] Performed By: #### 2 4344-4 ####[facility] LABORATORYCLIA [id number] [address] STATES OF [facility] CALCIUM IONIZED, PH CORRECTED 1.26 mmol/L Normal 1.08-1.30 [facility] Comment on above: Order Comment: Speci men Type: VENOUS BLOOD SPECIMENOrdering Facility: [facility] Address: [address] [place] [address] Performed By: #### 2 4344-4 ####[facility] LABORATORYCLIA [id number] [address] Calcium.ionized (BldV) [Mass/Vol] 1.25 mmol/L Normal 1.08-1.30 [facility] Comment on above: Order Comment: Speci men Type: VENOUS BLOOD SPECIMENOrdering Facility: [facility] Address: [address] [place] [address] Performed By: #### 2 4344-4 ####[facility] LABORATORYCLIA [id number] [address] [place] Carboxyhemoglobin (BldV) [Mass fraction] 1.5 % Normal 0.0-2.0 [facility] Comment on above: Order Comment: Speci men Type: VENOUS BLOOD SPECIMENOrdering Facility: [facility] Address: [address] [place] [address] Result Comment: Carb oxyhemoglobin Reference Range for Smokers: 2.0-8.0% Performed By: #### 2 4344-4 ####[facility]ORATORYCLIA [id number] [address] [place] CO2 (BldV) [Partial pressure] 38 mm[Hg] Low 42-55 [facility] Comment on above: Order Comment: Speci men Type: VENOUS BLOOD SPECIMENOrdering Facility: [facility] Address: [address] [address] Performed By: #### 2 4344-4 ####[facility]ORATORYCLIA [id number] [address] [place] [facility] CO2 [Moles/Vol] 22.9 mmol/L Low 25-29 [facility] Comment on above: Order Comment: Speci men Type: VENOUS BLOOD SPECIMENOrdering Facility: [facility] Address: [address] [place] [address] Performed By: #### 2 4344-4 ####[facility]ORATORYCLIA [id number] [address] CO2 adjusted to patient's actual temperature (BldV) [Partial pressure] 37 mmHg Low 42-55 [facility] Comment on above: Order Comment: Speci men Type: VENOUS BLOOD SPECIMENOrdering Facility: [facility] Address: [address] [place] [address] Performed By: #### 2 4344-4 ####[facility]ATORYCLIA [id number] [address] Glucose [Mass/Vol] 103 mg/dL Normal 60-105 [facility] Comment on above: Order Comment: Speci men Type: VENOUS BLOOD SPECIMENOrdering Facility: [facility] Address: [address] [address] Performed By: #### 2 4344-4 ####[facility]ORATORYCLIA [id number] [address] [place] HCO3 (Bld) [Moles/Vol] 24.4 mmol/L Normal 24-28 [facility] Comment on above: Order Comment: Speci men Type: VENOUS BLOOD SPECIMENOrdering Facility: [facility] Address: [address] [place] [address] Performed By: #### 2 4344-4 ####[facility]ORATORYCLIA [id number] [address] [facility] Hematocrit (Bld) [Volume fraction] 28.7 % Low 39.0-51.0 [facility] Comment on above: Order Comment: Speci men Type: VENOUS BLOOD SPECIMENOrdering Facility: [facility] Address: [address] [place] [address] Performed By: #### 2 4344-4 ####[facility]ORATORYCLIA [id number] [address] [place] Hemoglobin (Bld) [Mass/Vol] 9.3 g/dL Low 13.0-17.0 [facility] Comment on above: Order Comment: Speci men Type: VENOUS BLOOD SPECIMENOrdering Facility: [facility] Address: [address] [place] [address] Performed By: #### 2 4344-4 ####[facility]ORATORYCLIA [id number] [address] [place] Methemoglobin (Bld) [Mass fraction] % Normal 0.0-1.5 [facility] Comment on above: Order Comment: Speci men Type: VENOUS BLOOD SPECIMENOrdering Facility: [facility] Address: [address] [place] [address] Performed By: #### 2 4344-4 ####[facility]ORATORYCLIA [id number] [address] [place] O2 THERAPY Ventilator Normal [facility] Comment on above: Order Comment: Speci men Type: VENOUS BLOOD SPECIMENOrdering Facility: [facility] Address: [address] [place] [address] Performed By: #### 2 4344-4 ####[facility]ORATORYCLIA [id number] [address] Oxygen (BldV) [Partial pressure] 37 mm[Hg] Normal 35-45 [facility] Comment on above: Order Comment: Speci men Type: VENOUS BLOOD SPECIMENOrdering Facility: [facility] Address: [address] [place] [address] Performed By: #### 2 4344-4 ####[facility]ORATORYCLIA [id number] [place], [place] [address] [place] [address] [place] Oxygen adjusted to patient's actual temperature (BldV) [Partial pressure] 35.1 mmHg Normal 35-45 [facility] Comment on above: Order Comment: Speci men Type: VENOUS BLOOD SPECIMENOrdering Facility: [facility] Address: [address] [place] [address] Performed By: #### 2 4344-4 ####[facility]ORATORYCLIA [id number] [address] [place] Oxygen saturation in Blood 67.1 % Normal 60-85 [facility] Comment on above: Order Comment: Speci men Type: VENOUS BLOOD SPECIMENOrdering Facility: [facility] Address: [address] [place] [address] Performed By: #### 2 4344-4 ####[facility]ORATORYCLIA [id number] [address] Oxyhemoglobin (BldV) [Mass fraction] 66 % Normal 60-85 [facility] Comment on above: Order Comment: Speci men Type: VENOUS BLOOD SPECIMENOrdering Facility: [facility] Address: [address] [place] [address] Performed By: #### 2 4344-4 ####[facility]ORATORYCLIA [id number] [address] [place] pH (BldV) 7.42 [pH] Normal 7.32-7.42 [facility] Comment on above: Order Comment: Speci men Type: VENOUS BLOOD SPECIMENOrdering Facility: [facility] Address: [address] [place] [address] Performed By: #### 2 4344-4 ####[facility]ORATORYCLIA [id number] [address] pH adjusted to patient's actual temperature (BldV) 7.43 High 7.32-7.42 [facility] Comment on above: Order Comment: Speci men Type: VENOUS BLOOD SPECIMENOrdering Facility: [facility] Address: [address] [place] [address] Performed By: #### 2 4344-4 ####[facility]ORATORYCLIA [id number] [place] [address] [place] Potassium [Moles/Vol] 4.0 mmol/L Normal 3.5-5.0 [facility] Comment on above: Order Comment: Speci men Type: VENOUS BLOOD SPECIMENOrdering Facility: [facility] Address: [address] [place] [address] Performed By: #### 2 4344-4 ####[facility]ORATORYCLIA [id number] [address] [place] Sodium [Moles/Vol] 146 mmol/L High 136-144 [facility] Comment on above: Order Comment: Speci men Type: VENOUS BLOOD SPECIMENOrdering Facility: [facility] Address: [address] [place] [address] Performed By: #### 2 4344-4 ####[facility]ORATORYCLIA [id number] [place] [address] [place] HEMOGLOBIN (HGB)on Hemoglobin (Bld) [Mass/Vol] 9.2 g/dL Low 13.0-17.0 [facility] Comment on above: Order Comment: Speci men Type: BLOOD SPECIMENOrdering Facility: [facility] Address: [address] [place] [address] Performed By: #### H GB ####[facility]ORATORYCLIA [id number] [address] [place] IRON + TIBCon 06-18-2021 Iron [Mass/Vol] 27 ug/dL Low 41-186 [facility] Comment on above: Order Comment: Speci men Type: BLOOD SPECIMENOrdering Facility: [facility] Address: [address] [place] [address] Performed By: #### S ERFOL, IRON, FERR ####[facility]ORATORYCLIA [id number] [address] Iron binding capacity [Mass/Vol] 141 ug/dL Low 232-386 [facility] Comment on above: Order Comment: Speci men Type: BLOOD SPECIMENOrdering Facility: [facility] Address: [address] [place] [address] Performed By: #### S ERFOL, IRON, FERR ####[facility]ORATORYCLIA [id number] [address] Iron saturation [Mass fraction] 19 % Normal 15-57 [facility] Comment on above: Order Comment: Speci men Type: BLOOD SPECIMENOrdering Facility: [facility] Address: [address] [place] [address] Performed By: #### S ERFOL, IRON, FERR ####[facility]ORATORYCLIA [id number] [address] Magnesium SerPl-mCncon 06-18 Magnesium [Mass/Vol] 2.5 mg/dL High 1.7-2.3 [facility] Comment on above: Order Comment: Speci men Type: BLOOD SPECIMENOrdering Facility: [facility] Address: [address] [place] [address] Performed By: #### 2 4321-2, , 2776- ####[facility]ORATORYCLIA [id number] [address] NURSING PROGon 06-18-2021 NURSING PROG Normal [facility] Phosphate SerPl-mCncon 06-18 Phosphate [Mass/Vol] 3.0 mg/dL Normal 2.7-4.8 [facility] Comment on above: Order Comment: Speci men Type: BLOOD SPECIMENOrdering Facility: [facility] Address: [address] [place] [address] Performed By: #### 2 4321-2, 80034-4, 2777-1 ####[facility]ATORYCLIA [id number] [address] THERAPY NTon 06-18-2021 THERAPY NT Normal [facility] aPTT PPPon 06-18-2021 aPTT Coag (PPP) [Time] 43.0 s High 23.0-32.4 [facility] Comment on above: Order Comment: Speci men Type: BLOOD SPECIMENOrdering Facility: [facility] Address: [address] [place] [address] Performed By: #### 1 4979-9 ####[facility]ORATORYCLIA [id number] [address] aPTT Coag (PPP) [Time] 60.6 s High 23.0-32.4 [facility] Comment on above: Order Comment: Speci men Type: BLOOD SPECIMENOrdering Facility: [facility] Address: [address] [place] [address] Performed By: #### 1 4979-9 ####[facility]IA [id number] [address] aPTT Coag (PPP) [Time] 46.4 s High 23.0-32.4 [facility] Comment on above: Order Comment: Speci men Type: BLOOD SPECIMENOrdering Facility: [facility] Address: [address] [place] [address] Performed By: #### 1 4979-9 ####[facility]ORATORYCLIA [id number] [address] [place] Basic metabolic 2000 panelon 06-17-2021 Anion gap [Moles/Vol] 7 mmol/L Low 9-18 [facility] Comment on above: Order Comment: Speci men Type: BLOOD SPECIMENOrdering Facility: [facility] Address: [address] [place] [address] Performed By: #### 2 951-2, 71627-8, 2777-1, 42274-0 ####[facility]ORATORYCLIA [id number] [address] OF [facility] Calcium [Mass/Vol] 8.1 mg/dL Low 8.5-10.2 [facility] Comment on above: Order Comment: Speci men Type: BLOOD SPECIMENOrdering Facility: [facility] Address: [address] [place] [address] Performed By: #### 2 951-2, , 2776-05, 76414-5 ####[facility]ORATORYCLIA [id number] [place] [address] [place] Chloride [Moles/Vol] 113 mmol/L High 97-105 [facility] Comment on above: Order Comment: Speci men Type: BLOOD SPECIMENOrdering Facility: [facility] Address: [address] [place] [address] Performed By: #### 2 951-2, , 2776-05, 83210-1 ####[facility]ORATORYCLIA [id number] [place] [address] [place] CO2 [Moles/Vol] 25 mmol/L Normal 22-30 [facility] Comment on above: Order Comment: Speci men Type: BLOOD SPECIMENOrdering Facility: [facility] Address: [address] [place] [address] Performed By: #### 2 951-2, , 2776-05, ####[facility]ORATORYCLIA [id number] [place] [address] [place] Creatinine [Mass/Vol] 0.70 mg/dL Low 0.73-1.22 [facility] Comment on above: Order Comment: Speci men Type: BLOOD SPECIMENOrdering Facility: [facility] Address: [address] [place] [address] Performed By: #### 2 951-2, , 2776-05, 30993-0 ####[facility]ORATORYCLIA [id number] [place] [address] [place] GFR/1.73 sq M.predicted MDRD (S/P/Bld) [Vol rate/Area] mL/min/{1.73_m2} Normal [facility] Comment on above: Order Comment: Shira feldman Type: BLOOD SPECIMENOrdering Facility: [facility] Address: [address] [place] [address] Result Comment: >60e GFR (Estimated GFR) Units [...] actual GFR. Performed By: #### 2 951-2, 86464-7, 2777-1, 19363-5 ####[facility]ITALCLIA [id number] [place] [id number] [place] Glucose [Mass/Vol] 122 mg/dL High 74-99 [facility] Comment on above: Order Comment: Shira feldman Type: BLOOD SPECIMENOrdering Facility: [facility] Address: [address] [place] [address] Result Comment: The [place] [employer] (ADA) provides guidance for cutoff [...] Standards of Medical Care in Diabetes 2016, [place] [employer]. Diabetes Care. 2016.39(Suppl 1). Performed By: #### 2 951-2, 17700-4, 2777-1, 02896-4 ####[facility] LABORATORYCLIA [id number] [place] [address] [place] Potassium [Moles/Vol] 3.5 mmol/L Low 3.7-5.1 [facility] Comment on above: Order Comment: Speci men Type: BLOOD SPECIMENOrdering Facility: [facility] Address: [address] [place] [address] Performed By: #### 2 951-2, 23051-1, 2777-1, 82942-2 ####[facility]ORATORYCLIA [id number] [address] STATES [place] [facility] Urea nitrogen [Mass/Vol] 27 mg/dL High 9-24 [facility] Comment on above: Order Comment: Speci men Type: BLOOD SPECIMENOrdering Facility: [facility] Address: [address] [place] [address] Performed By: #### 2 951-2, 60159-3, 2777-1, 19952-8 ####[facility]ORATORYCLIA [id number] [address] CASE MANAGEMon 06-17-2021 CASE MANAGEM Normal [facility] CBC panel Auto (Bld)on 06-17 Erythrocyte distribution width (RBC) [Ratio] 15.9 % High 11.5-15.0 [facility] Comment on above: Order Comment: Speci men Type: BLOOD SPECIMENOrdering Facility: [facility] Address: [address] [place] [address] Performed By: #### 5 8410-2 ####[facility]ORATORYCLIA [id number] [address] Hematocrit (Bld) [Volume fraction] 28.9 % Low 39.0-51.0 [facility] Comment on above: Order Comment: Speci men Type: BLOOD SPECIMENOrdering Facility: [facility] Address: [address] [place] [address] Performed By: #### 5 8410-2 ####[facility]ORATORYCLIA [id number] [address] [place] [facility] Hemoglobin (Bld) [Mass/Vol] 8.8 g/dL Low 13.0-17.0 [facility] Comment on above: Order Comment: Speci men Type: BLOOD SPECIMENOrdering Facility: [facility] Address: [address] [place] [address] Performed By: #### 5 8410-2 ####[facility]ORATORYCLIA [id number] [address] STATES [facility] MCH (RBC) [Entitic mass] 28.4 pg Normal 26.0-34.0 [facility] Comment on above: Order Comment: Speci men Type: BLOOD SPECIMENOrdering Facility: [facility] Address: [address] [place] [address] Performed By: #### 5 8410-2 ####[facility]ORATORYCLIA [id number] [address] STATES [facility] MCHC (RBC) [Mass/Vol] 30.4 g/dL Low 30.5-36.0 [facility] Comment on above: Order Comment: Speci men Type: BLOOD SPECIMENOrdering Facility: [facility] Address: [address] [place] [address] Performed By: #### 5 8410-2 ####[facility]ORATORYCLIA [id number] [address] MCV (RBC) [Entitic vol] 93.2 fL Normal 80.0-100.0 [facility] Comment on above: Order Comment: Speci men Type: BLOOD SPECIMENOrdering Facility: [facility] Address: [address] [place] [address] Performed By: #### 5 8410-2 ####[facility]ORATORYCLIA [id number] [address] Nucleated RBC (Bld) [#/Vol] 10*3/uL Normal <0.01 [facility] Comment on above: Order Comment: Speci men Type: BLOOD SPECIMENOrdering Facility: [facility] Address: [address] [place] [address] Performed By: #### 5 8410-2 ####[facility]ORATORYCLIA [id number] [address] Platelet mean volume (Bld) [Entitic vol] 11.9 fL Normal 9.0-12.7 [facility] Comment on above: Order Comment: Speci men Type: BLOOD SPECIMENOrdering Facility: [facility] Address: [address] [place] [address] Performed By: #### 5 8410-2 ####[facility]ORATORYCLIA [id number] [address] OF [facility] Platelets (Bld) [#/Vol] 257 10*3/uL Normal 150-400 [facility] Comment on above: Order Comment: Speci men Type: BLOOD SPECIMENOrdering Facility: [facility] Address: [address] [place] [address] Performed By: #### 5 8410-2 ####[facility]ORATORYCLIA [id number] [address] RBC (Bld) [#/Vol] 3.10 10*6/uL Low 4.20-6.00 [facility] Comment on above: Order Comment: Speci men Type: BLOOD SPECIMENOrdering Facility: [facility] Address: [address] [place] [address] Performed By: #### 5 8410-2 ####[facility]ORATORYCLIA [id number] [address] WBC (Bld) [#/Vol] 10.54 10*3/uL Normal 3.70-11.00 [facility] Comment on above: Order Comment: Speci men Type: BLOOD SPECIMENOrdering Facility: [facility] Address: [address] [place] [address] Performed By: #### 5 8410-2 ####[facility]ORATORYCLIA [id number] [address] HEMOGLOBIN (HGB)on 2 Hemoglobin (Bld) [Mass/Vol] 8.8 g/dL Low 13.0-17.0 [facility] Comment on above: Order Comment: Speci men Type: BLOOD SPECIMENOrdering Facility: [facility] Address: [address] [place] [address] Performed By: #### H GB ####[facility]ORATORYCLIA [id number] [address] [place] Magnesium SerPl-mCncon 06-17 Magnesium [Mass/Vol] 2.5 mg/dL High 1.7-2.3 [facility] Comment on above: Order Comment: Speci men Type: BLOOD SPECIMENOrdering Facility: [facility] Address: [address] [place] [address] Performed By: #### 2 951-2, , 2776-05, 82600-9 ####[facility]ORATORYCLIA [id number] [place] [address] [place] NURSING PROGon 06-17-2021 NURSING PROG Normal [facility] NURSING PROG Normal [facility] NURSING PROG Normal [facility] Phosphate SerPl-mCncon 06-17 Phosphate [Mass/Vol] 1.9 mg/dL Low 2.7-4.8 [facility] Comment on above: Order Comment: Speci men Type: BLOOD SPECIMENOrdering Facility: [facility] Address: [address] [place] [address] Performed By: #### 2 951-2, , 2776-05, 05748-5 ####[facility]ORATORYCLIA [id number] [place] [address] [place] Sodium SerPl-sCncon 06-17-19 22 Sodium [Moles/Vol] 144 mmol/L Normal 136-144 [facility] Comment on above: Order Comment: Speci men Type: BLOOD SPECIMENOrdering Facility: [facility] Address: [address] [place] [address] Performed By: #### 2 951-2 ####[facility]ORATORYCLIA [id number] [address] STATES [facility] Sodium [Moles/Vol] 145 mmol/L High 136-144 [facility] Comment on above: Order Comment: Speci men Type: BLOOD SPECIMENOrdering Facility: [facility] Address: [address] [place] [address] Performed By: #### 2 951-2, 69832-8, 2777-1, 94547-0 ####[facility]ORATORYCLIA [id number] [address] [place] aPTT PPPon 06-17-2021 aPTT Coag (PPP) [Time] 55.8 s High 23.0-32.4 [facility] Comment on above: Order Comment: Speci men Type: BLOOD SPECIMENOrdering Facility: [facility] Address: [address] [place] [address] Performed By: #### 1 4979-9 ####[facility]ORATORYCLIA [id number] [address] [place] ARTERIAL BLOOD GASESon 06-16 Base excess Calc (Bld) [Moles/Vol] 3 mmol/L High 0-2 [facility] Comment on above: Order Comment: Speci men Type: ARTERIAL BLOOD SPECIMENOrdering Facility: [facility] Address: [address] [place] [address] Performed By: #### A LLBG ####[facility] LABORATORYCLIA [id number] [address] [place] Body temperature 99.14 [degF] Normal [facility] Comment on above: Order Comment: Speci men Type: ARTERIAL BLOOD SPECIMENOrdering Facility: [facility] Address: [address] [place] [address] Performed By: #### A LLBG ####[facility]ORATORYCLIA [id number] [address] [place] CALCIUM IONIZED, PH CORRECTED 1.21 mmol/L Normal 1.08-1.30 [facility] Comment on above: Order Comment: Speci men Type: ARTERIAL BLOOD SPECIMENOrdering Facility: [facility] Address: [address] [place] [address] Performed By: #### A LLBG ####[facility] LABORATORYCLIA [id number] [address] [place] Calcium.ionized (BldV) [Mass/Vol] 1.17 mmol/L Normal 1.08-1.30 [facility] Comment on above: Order Comment: Speci men Type: ARTERIAL BLOOD SPECIMENOrdering Facility: [facility] Address: [address] [place] [address] Performed By: #### A LLBG ####[facility] LABORATORYCLIA [id number] [address] Carboxyhemoglobin (BldA) [Mass fraction] 1.4 % Normal 0.0-2.0 [facility] Comment on above: Order Comment: Speci men Type: ARTERIAL BLOOD SPECIMENOrdering Facility: [facility] Address: [address] [place] [address] Result Comment: Carb oxyhemoglobin Reference Range for Smokers: 2.0-8.0% Performed By: #### A LLBG ####[facility] LABORATORYCLIA [id number] [address] [place] CO2 (Bld) [Partial pressure] 38 mm Hg Normal 36-46 [facility] Comment on above: Order Comment: Speci men Type: ARTERIAL BLOOD SPECIMENOrdering Facility: [facility] Address: [address] [place] [address] Performed By: #### A LLBG ####[facility] LABORATORYCLIA [id number] [address] [place] CO2 [Moles/Vol] 24.5 mmol/L Normal 22-28 [facility] Comment on above: Order Comment: Speci men Type: ARTERIAL BLOOD SPECIMENOrdering Facility: [facility] Address: [address] [place] [address] Performed By: #### A LLBG ####[facility]ORATORYCLIA [id number] [address] OF [facility] CO2 adjusted to patient's actual temperature (Bld) [Partial pressure] 38 mmHg Normal 36-46 [facility] Comment on above: Order Comment: Speci men Type: ARTERIAL BLOOD SPECIMENOrdering Facility: [facility] Address: [address] [place] [address] Performed By: #### A LLBG ####[facility]ORATORYCLIA [id number] [address] [place] Glucose [Mass/Vol] 147 mg/dL High 60-105 [facility] Comment on above: Order Comment: Speci men Type: ARTERIAL BLOOD SPECIMENOrdering Facility: [facility] Address: [address] [place] [address] Performed By: #### A LLBG ####[facility]ORATORYCLIA [id number] [address] [place] HCO3 (Bld) [Moles/Vol] 27 mmol/L High 22-26 [facility] Comment on above: Order Comment: Speci men Type: ARTERIAL BLOOD SPECIMENOrdering Facility: [facility] Address: [address] [place] [address] Performed By: #### A LLBG ####[facility]ORATORYCLIA [id number] [address] [place] Hematocrit (Bld) [Volume fraction] 31.8 % Low 39.0-51.0 [facility] Comment on above: Order Comment: Speci men Type: ARTERIAL BLOOD SPECIMENOrdering Facility: [facility] Address: [address] [place] [address] Performed By: #### A LLBG ####[facility]ORATORYCLIA [id number] [address] [place] Hemoglobin (Bld) [Mass/Vol] 10.3 g/dL Low 13.0-17.0 [facility] Comment on above: Order Comment: Speci men Type: ARTERIAL BLOOD SPECIMENOrdering Facility: [facility] Address: [address] [place] [address] Performed By: #### A LLBG ####[facility]ATORYCLIA [id number] [address] Methemoglobin (Bld) [Mass fraction] 1.0 % Normal 0.0-1.5 [facility] Comment on above: Order Comment: Speci men Type: ARTERIAL BLOOD SPECIMENOrdering Facility: [facility] Address: [address] [place] [address] Performed By: #### A LLBG ####[facility]ATORYCLIA [id number] [address] O2 THERAPY Ventilator Normal [facility] Comment on above: Order Comment: Speci men Type: ARTERIAL BLOOD SPECIMENOrdering Facility: [facility] Address: [address] [place] [address] Performed By: #### A LLBG ####[facility]ORATORYCLIA [id number] [address] Oxygen (Bld) [Partial pressure] 78 mm Hg Low 85-95 [facility] Comment on above: Order Comment: Speci men Type: ARTERIAL BLOOD SPECIMENOrdering Facility: [facility] Address: [address] [place] [address] Performed By: #### A LLBG ####[facility]ORATORYCLIA [id number] [address] Oxygen adjusted to patient's actual temperature (Bld) [Partial pressure] 79.7 mmHg Low 85-95 [facility] Comment on above: Order Comment: Speci men Type: ARTERIAL BLOOD SPECIMENOrdering Facility: [facility] Address: [address] [place] [address] Performed By: #### A LLBG ####[facility]ATORYCLIA [id number] [address] [place] OXYGEN SATURATION, ARTERIAL 96 % Normal 95-98 [facility] Comment on above: Order Comment: Speci men Type: ARTERIAL BLOOD SPECIMENOrdering Facility: [facility] Address: [address] [place] [address] Performed By: #### A LLBG ####[facility]ORATORYCLIA [id number] [address] [place] Oxyhemoglobin (BldA) [Mass fraction] 94 % Low 95-98 [facility] Comment on above: Order Comment: Speci men Type: ARTERIAL BLOOD SPECIMENOrdering Facility: [facility] Address: [address] [place] [address] Performed By: #### A LLBG ####[facility]ORATORYCLIA [id number] [place] [address] [place] pH (Bld) 7.47 [pH] High 7.35-7.45 [facility] Comment on above: Order Comment: Speci men Type: ARTERIAL BLOOD SPECIMENOrdering Facility: [facility] Address: [address] [place] [address] Performed By: #### A LLBG ####[facility]ORATORYCLIA [id number] [address] pH adjusted to patient's actual temperature (Bld) 7.46 High 7.35-7.45 [facility] Comment on above: Order Comment: Speci men Type: ARTERIAL BLOOD SPECIMENOrdering Facility: [facility] Address: [address] [place] [address] Performed By: #### A LLBG ####[facility]ORATORYCLIA [id number] [address] [place] Potassium [Moles/Vol] 3.7 mmol/L Normal 3.5-5.0 [facility] Comment on above: Order Comment: Speci men Type: ARTERIAL BLOOD SPECIMENOrdering Facility: [facility] Address: [address] [place] [address] Performed By: #### A LLBG ####[facility]ORATORYCLIA [id number] [place] [address] [place] Sodium [Moles/Vol] 155 mmol/L High 136-144 [facility] Comment on above: Order Comment: Speci men Type: ARTERIAL BLOOD SPECIMENOrdering Facility: [facility] Address: [address] [place] [address] Performed By: #### A LLBG ####[facility]ORATORYCLIA [id number] [place] [address] [place] Bacteria Spec Resp Culton Bacteria identified Respiratory culture Nom (Unsp spec) CULTURE, RESPIRATORY: Rare Normal respiratory chris present ORGANISM ID: 1 Few Yeast, not cryptococcus neoformans GRAM STAIN: No organisms seen Few Polymorphonuclear leukocytes Few Epithelial cells Abnormal [facility] Comment on above: Performed By: #### 3 2355-0 ####[facility]ORATORYCLIA [id number] [place] [address] [place] Basic metabolic 2000 panelon 06-16-2021 Anion gap [Moles/Vol] 9 mmol/L Normal 9-18 [facility] Comment on above: Order Comment: Speci men Type: BLOOD SPECIMENOrdering Facility: [facility] Address: [address] [place] [address] Performed By: #### 2 4321-2 ####[facility]ORATORYCLIA [id number] [place] [address] [place] Calcium [Mass/Vol] 8.4 mg/dL Low 8.5-10.2 [facility] Comment on above: Order Comment: Speci men Type: BLOOD SPECIMENOrdering Facility: [facility] Address: [address] [place] [address] Performed By: #### 2 4321-2 ####[facility]ORATORYCLIA [id number] [place] [address] [place] Chloride [Moles/Vol] 120 mmol/L High 97-105 [facility] Comment on above: Order Comment: Speci men Type: BLOOD SPECIMENOrdering Facility: [facility] Address: [address] [place] [address] Performed By: #### 2 4321-2 ####[facility]ORATORYCLIA [id number] [place] [address] [place] CO2 [Moles/Vol] 27 mmol/L Normal 22-30 [facility] Comment on above: Order Comment: Speci men Type: BLOOD SPECIMENOrdering Facility: [facility] Address: [address] [place] [address] Performed By: #### 2 4321-2 ####[facility]ORATORYCLIA [id number] [place] [address] [place] Creatinine [Mass/Vol] 0.75 mg/dL Normal 0.73-1.22 [facility] Comment on above: Order Comment: Speci men Type: BLOOD SPECIMENOrdering Facility: [facility] Address: [address] [place] [address] Performed By: #### 2 4321-2 ####[facility]PITALIA [id number] [place] [address] [place] GFR/1.73 sq M.predicted MDRD (S/P/Bld) [Vol rate/Area] mL/min/{1.73_m2} Normal [facility] Comment on above: Order Comment: Speci francia Type: BLOOD SPECIMENOrdering Facility: [facility] Address: [address] [place] [address] Result Comment: >60e GFR (Estimated GFR) Units [...] #### 2 4321-2 ####[facility]ORATORYCLIA [id number] [place] [address] [place] Glucose [Mass/Vol] 160 mg/dL High 74-99 [facility] Comment on above: Order Comment: Speci men Type: BLOOD SPECIMENOrdering Facility: [facility] Address: [address] [place] [address] Result Comment: The [place] [employer] (ADA) provides guidance for cutoff [...] Standards of Medical Care in Diabetes 2016, [place] [employer]. Diabetes Care. 2016.39(Suppl 1). Performed By: #### 2 4321-2 ####[facility]ORATORYCLIA [id number] [place] [address] [place] Potassium [Moles/Vol] 3.1 mmol/L Low 3.7-5.1 [facility] Comment on above: Order Comment: Shira [facility] Type: BLOOD SPECIMENOrdering Facility: [facility] Address: [address] [address] Performed By: #### 2 4321-2 ####[facility]ORATORYCLIA [id number] [place] [address] [place] Sodium [Moles/Vol] 156 mmol/L High 136-144 [facility] Comment on above: Order Comment: Johni men Type: BLOOD SPECIMENOrdering Facility: [facility] Address: [address] [address] Performed By: #### 2 4321-2 ####[facility]ORATORYCLIA [id number] [place] [address] [place] Urea nitrogen [Mass/Vol] 33 mg/dL High 9-24 [facility] Comment on above: Order Comment: Johni [facility] Type: BLOOD SPECIMENOrdering Facility: [facility] Address: [address] [address] Performed By: #### 2 4321-2 ####[facility]ORATORYCLIA [id number] [address] CASE MANAGEMon 06-16-2021 CASE MANAGEM Normal [facility] CBC panel Auto (Bld)on 06-16 Erythrocyte distribution width (RBC) [Ratio] 15.9 % High 11.5-15.0 [facility] Comment on above: Order Comment: Speci men Type: BLOOD SPECIMENOrdering Facility: [facility] Address: [address] [place] [address] Performed By: #### 5 8410-2 ####[facility]ORATORYCLIA [id number] [address] Hematocrit (Bld) [Volume fraction] 34.6 % Low 39.0-51.0 [facility] Comment on above: Order Comment: Speci men Type: BLOOD SPECIMENOrdering Facility: [facility] Address: [address] [place] [address] Performed By: #### 5 8410-2 ####[facility]ORATORYCLIA [id number] [address] Hemoglobin (Bld) [Mass/Vol] 10.2 g/dL Low 13.0-17.0 [facility] Comment on above: Order Comment: Speci men Type: BLOOD SPECIMENOrdering Facility: [facility] Address: [address] [place] [address] Performed By: #### 5 8410-2 ####[facility]ORATORYCLIA [id number] [address] MCH (RBC) [Entitic mass] 28.5 pg Normal 26.0-34.0 [facility] Comment on above: Order Comment: Speci men Type: BLOOD SPECIMENOrdering Facility: [facility] Address: [address] [place] [address] Performed By: #### 5 8410-2 ####[facility]ORATORYCLIA [id number] [place] [address] MCHC (RBC) [Mass/Vol] 29.5 g/dL Low 30.5-36.0 [facility] Comment on above: Order Comment: Speci men Type: BLOOD SPECIMENOrdering Facility: [facility] Address: [address] [place] [address] Performed By: #### 5 8410-2 ####[facility]ORATORYCLIA [id number] [address] [place] MCV (RBC) [Entitic vol] 96.6 fL Normal 80.0-100.0 [facility] Comment on above: Order Comment: Speci men Type: BLOOD SPECIMENOrdering Facility: [facility] Address: [address] [place] [address] Performed By: #### 5 8410-2 ####[facility]ORATORYCLIA [id number] [address] Nucleated RBC (Bld) [#/Vol] 10*3/uL Normal <0.01 [facility] Comment on above: Order Comment: Speci men Type: BLOOD SPECIMENOrdering Facility: [facility] Address: [address] [place] [address] Performed By: #### 5 8410-2 ####[facility]ORATORYCLIA [id number] [address] [place] Platelet mean volume (Bld) [Entitic vol] 11.9 fL Normal 9.0-12.7 [facility] Comment on above: Order Comment: Speci men Type: BLOOD SPECIMENOrdering Facility: [facility] Address: [address] [place] [address] Performed By: #### 5 8410-2 ####[facility]ORATORYCLIA [id number] [address] [place] Platelets (Bld) [#/Vol] 269 10*3/uL Normal 150-400 [facility] Comment on above: Order Comment: Speci men Type: BLOOD SPECIMENOrdering Facility: [facility] Address: [address] [address] Performed By: #### 5 8410-2 ####[facility]ORATORYCLIA [id number] [address] [place] RBC (Bld) [#/Vol] 3.58 10*6/uL Low 4.20-6.00 [facility] Comment on above: Order Comment: Speci men Type: BLOOD SPECIMENOrdering Facility: [facility] Address: [address] [place] [address] Performed By: #### 5 8410-2 ####[facility]ORATORYCLIA [id number] [address] STATES OF [facility] WBC (Bld) [#/Vol] 13.11 10*3/uL High 3.70-11.00 [facility] Comment on above: Order Comment: Speci men Type: BLOOD SPECIMENOrdering Facility: [facility] Address: [address] [place] [address] Performed By: #### 5 8410-2 ####[facility]ORATORYCLIA [id number] [address] [place] CONSULTon 06-16-2021 CONSULT Normal [facility] CONSULT PROGon 06-16-2021 CONSULT PROG Normal [facility] CT BRAIN WO IVCONon 06-16-[address] BRAIN WO IVCON Normal [facility] HEMOGLOBIN (HGB)on 2 Hemoglobin (Bld) [Mass/Vol] 8.9 g/dL Low 13.0-17.0 [facility] Comment on above: Order Comment: Speci men Type: BLOOD SPECIMENOrdering Facility: [facility] Address: [address] [place] [address] Performed By: #### H GB ####[facility]ORATORYCLIA [id number] [address] [place] [facility] Hemoglobin (Bld) [Mass/Vol] 9.6 g/dL Low 13.0-17.0 [facility] Comment on above: Order Comment: Speci men Type: BLOOD SPECIMENOrdering Facility: [facility] Address: [address] [place] [address] Performed By: #### H GB ####[facility]ORATORYCLIA [id number] [place] [address] [place] Magnesium SerPl-mCncon 06-16 Magnesium [Mass/Vol] 2.7 mg/dL High 1.7-2.3 [facility] Comment on above: Order Comment: Speci men Type: BLOOD SPECIMENOrdering Facility: [facility] Address: [address] [place] [address] Performed By: #### 1 9123-9 ####[facility]ORATORYCLIA [id number] [place] [address] [place] NURSING PROGon 06-16-2021 NURSING PROG Normal [facility] NUTRITIONon 06-16-2021 NUTRITION Normal [facility] Phosphate SerPl-mCncon 06-16 Phosphate [Mass/Vol] 1.4 mg/dL Low 2.7-4.8 [facility] Comment on above: Order Comment: Speci men Type: BLOOD SPECIMENOrdering Facility: [facility] Address: [address] [place] [address] Performed By: #### 2 777-1 ####[facility]ORATORYCLIA [id number] [address] [place] STAPH AUREUS PCRon 2 S. aureus and MRSA panel MEGAN+probe (Nose) Normal Negative [facility] Comment on above: Order Comment: Speci men Type: SWAB OF INTERNAL NOSEOrdering Facility: [facility] Address: [address] [place] [address] Result Comment: Nega tive for Staphylococcus aureus by PCR.Negative for MRSA by PCR Performed By: #### S APCR ####[facility]ATORYCLIA [id number] [place] [address] [place] Sodium SerPl-sCncon 06-16-19 Sodium [Moles/Vol] 150 mmol/L High 136-144 [facility] Comment on above: Order Comment: Speci men Type: BLOOD SPECIMENOrdering Facility: [facility] Address: [address] [place] [address] Performed By: #### 2 951-2 ####[facility]ATORYCLIA [id number] [address] [place] Sodium [Moles/Vol] 153 mmol/L High 136-144 [facility] Comment on above: Order Comment: Speci men Type: BLOOD SPECIMENOrdering Facility: [facility] Address: [address] [place] [address] Performed By: #### 2 951-2 ####[facility]ORATORYCLIA [id number] [address] [place] [facility] Sodium [Moles/Vol] 158 mmol/L High 136-144 [facility] Comment on above: Order Comment: Speci men Type: BLOOD SPECIMENOrdering Facility: [facility] Address: [address] [place] [address] Performed By: #### 2 951-2 ####[facility]ORATORYCLIA [id number] [address] [place] aPTT PPPon 06-16-2021 aPTT Coag (PPP) [Time] 61.8 s High 23.0-32.4 [facility] Comment on above: Order Comment: Speci men Type: BLOOD SPECIMENOrdering Facility: [facility] Address: [address] [place] [address] Performed By: #### 1 4979-9 ####[facility]ATORYCLIA [id number] [address] [place] aPTT Coag (PPP) [Time] 57.6 s High 23.0-32.4 [facility] Comment on above: Order Comment: Speci men Type: BLOOD SPECIMENOrdering Facility: [facility] Address: [address] [place] [address] Performed By: #### 1 4979-9 ####[facility]ORATORYCLIA [id number] [place] [address] [place] ALLIED HEALTHon 06-15-2021 ALLIED HEALTH Normal [facility] ALLIED HEALTH Normal [facility] ALLIED HEALTH Normal [facility] ALLIED HEALTH Normal [facility] ARTERIAL BLOOD GASESon 06-15 Base excess Calc (Bld) [Moles/Vol] 3 mmol/L High 0-2 [facility] Comment on above: Order Comment: Speci men Type: ARTERIAL BLOOD SPECIMENOrdering Facility: [facility] Address: [address] [place] [address] Performed By: #### A LLBG ####[facility]ORATORYCLIA [id number] [address] Body temperature 99.5 [degF] Normal [facility] Comment on above: Order Comment: Speci men Type: ARTERIAL BLOOD SPECIMENOrdering Facility: [facility] Address: [address] [place] [address] Performed By: #### A LLBG ####[facility]ORATORYCLIA [id number] [place] [address] [place] CALCIUM IONIZED, PH CORRECTED 1.34 mmol/L High 1.08-1.30 [facility] Comment on above: Order Comment: Speci men Type: ARTERIAL BLOOD SPECIMENOrdering Facility: [facility] Address: [address] [place] [address] Performed By: #### A LLBG ####[facility]ORATORYCLIA [id number] [place] [address] [place] Calcium.ionized (BldV) [Mass/Vol] 1.29 mmol/L Normal 1.08-1.30 [facility] Comment on above: Order Comment: Speci men Type: ARTERIAL BLOOD SPECIMENOrdering Facility: [facility] Address: [address] [place] [address] Performed By: #### A LLBG ####[facility]ORATORYCLIA [id number] [address] [place] Carboxyhemoglobin (BldA) [Mass fraction] 1.3 % Normal 0.0-2.0 [facility] Comment on above: Order Comment: Speci men Type: ARTERIAL BLOOD SPECIMENOrdering Facility: [facility] Address: [address] [address] Result Comment: Carb oxyhemoglobin Reference Range for Smokers: 2.0-8.0% Performed By: #### A LLBG ####[facility]ATORYCLIA [id number] [address] [place] CO2 (Bld) [Partial pressure] 37 mm Hg Normal 36-46 [facility] Comment on above: Order Comment: Speci men Type: ARTERIAL BLOOD SPECIMENOrdering Facility: [facility] Address: [address] [place] [address] Performed By: #### A LLBG ####[facility]ATORYCLIA [id number] [address] [place] CO2 [Moles/Vol] 24.6 mmol/L Normal 22-28 [facility] Comment on above: Order Comment: Speci men Type: ARTERIAL BLOOD SPECIMENOrdering Facility: [facility] Address: [address] [place] [address] Performed By: #### A LLBG ####[employer] [facility]ATORYCLIA [id number] [address] [place] CO2 adjusted to patient's actual temperature (Bld) [Partial pressure] 38 mmHg Normal 36-46 [facility] Comment on above: Order Comment: Speci men Type: ARTERIAL BLOOD SPECIMENOrdering Facility: [facility] Address: [address] [address] Performed By: #### A LLBG ####[facility]ATORYCLIA [id number] [address] [place] FIO2 100 % Normal [facility] Comment on above: Order Comment: Speci men Type: ARTERIAL BLOOD SPECIMENOrdering Facility: [facility] Address: [address] [address] Performed By: #### A LLBG ####[facility]ORYCLIA [id number] [address] [place] Glucose [Mass/Vol] 159 mg/dL High 60-105 [facility] Comment on above: Order Comment: Speci men Type: ARTERIAL BLOOD SPECIMENOrdering Facility: [facility] Address: [address] [address] Performed By: #### A LLBG ####[facility]ORATORYCLIA [id number] [place] [address] [place] HCO3 (Bld) [Moles/Vol] 27 mmol/L High 22-26 [facility] Comment on above: Order Comment: Speci men Type: ARTERIAL BLOOD SPECIMENOrdering Facility: [facility] Address: [address] [place] [address] Performed By: #### A LLBG ####[facility]ORATORYCLIA [id number] [address] [place] Hematocrit (Bld) [Volume fraction] 31.0 % Low 39.0-51.0 [facility] Comment on above: Order Comment: Speci men Type: ARTERIAL BLOOD SPECIMENOrdering Facility: [facility] Address: [address] [place] [address] Performed By: #### A LLBG ####[facility] LABORATORYCLIA [id number] [address] [place] Hemoglobin (Bld) [Mass/Vol] 10.0 g/dL Low 13.0-17.0 [facility] Comment on above: Order Comment: Speci men Type: ARTERIAL BLOOD SPECIMENOrdering Facility: [facility] Address: [address] [address] Performed By: #### A LLBG ####[facility] LABORATORYCLIA [id number] [address] [place] Methemoglobin (Bld) [Mass fraction] % Normal 0.0-1.5 [facility] Comment on above: Order Comment: Speci men Type: ARTERIAL BLOOD SPECIMENOrdering Facility: [facility] Address: [address] [place], [place] [address] Performed By: #### A LLBG ####[facility]ORATORYCLIA [id number] [address] O2 THERAPY Ventilator Normal [facility] Comment on above: Order Comment: Speci men Type: ARTERIAL BLOOD SPECIMENOrdering Facility: [facility] Address: [address] [address] Performed By: #### A LLBG ####[facility]ORATORYCLIA [id number] [address] [place] Oxygen (Bld) [Partial pressure] 279 mm Hg High 85-95 [facility] Comment on above: Order Comment: Speci men Type: ARTERIAL BLOOD SPECIMENOrdering Facility: [facility] Address: [address] [address] Performed By: #### A LLBG ####[facility] LABORATORYCLIA [id number] [address] Oxygen adjusted to patient's actual temperature (Bld) [Partial pressure] 281 mmHg High 85-95 [facility] Comment on above: Order Comment: Speci men Type: ARTERIAL BLOOD SPECIMENOrdering Facility: [facility] Address: [facility] [address] Performed By: #### A LLBG ####[facility] LABORATORYCLIA [id number] [address] [place] OXYGEN SATURATION, ARTERIAL 100 % High 95-98 [facility] Comment on above: Order Comment: Speci men Type: ARTERIAL BLOOD SPECIMENOrdering Facility: [facility] Address: [address] [address] Performed By: #### A LLBG ####[facility] LABORATORYCLIA [id number] [address] Oxyhemoglobin (BldA) [Mass fraction] 98 % Normal 95-98 [facility] Comment on above: Order Comment: Speci men Type: ARTERIAL BLOOD SPECIMENOrdering Facility: [facility] Address: [address] [place] [address] Performed By: #### A LLBG ####[facility] LABORATORYCLIA [id number] [address] [place] pH (Bld) 7.47 [pH] High 7.35-7.45 [facility] Comment on above: Order Comment: Speci men Type: ARTERIAL BLOOD SPECIMENOrdering Facility: [facility] Address: [address] [place] [address] Performed By: #### A LLBG ####[facility] LABORATORYCLIA [id number] [address] pH adjusted to patient's actual temperature (Bld) 7.46 High 7.35-7.45 [facility] Comment on above: Order Comment: Speci men Type: ARTERIAL BLOOD SPECIMENOrdering Facility: [facility] Address: [address] [place] [address] Performed By: #### A LLBG ####[facility] LABORATORYCLIA [id number] [address] [place] Potassium [Moles/Vol] 3.6 mmol/L Normal 3.5-5.0 [facility] Comment on above: Order Comment: Speci men Type: ARTERIAL BLOOD SPECIMENOrdering Facility: [facility] Address: [address] [place] [address] Performed By: #### A LLBG ####[facility] LABORATORYCLIA [id number] [address] [place] Sodium [Moles/Vol] 162 mmol/L High 136-144 [facility] Comment on above: Order Comment: Speci men Type: ARTERIAL BLOOD SPECIMENOrdering Facility: [facility] Address: [address] [place] [address] Performed By: #### A LLBG ####[facility] LABORATORYCLIA [id number] [place] [address] [place] Base excess Calc (Bld) [Moles/Vol] 4 mmol/L High 0-2 [facility] Comment on above: Order Comment: Speci men Type: ARTERIAL BLOOD SPECIMENOrdering Facility: [facility] Address: [address] [place] [address] Performed By: #### A LLBG ####[facility] LABORATORYCLIA [id number] [address] Body temperature 100.58 [degF] Normal [facility] Comment on above: Order Comment: Speci men Type: ARTERIAL BLOOD SPECIMENOrdering Facility: [facility] Address: [address] [place] [address] Performed By: #### A LLBG ####[facility] LABORATORYCLIA [id number] [address] [place] CALCIUM IONIZED, PH CORRECTED 1.34 mmol/L High 1.08-1.30 [facility] Comment on above: Order Comment: Speci men Type: ARTERIAL BLOOD SPECIMENOrdering Facility: [facility] Address: [address] [place] [address] Performed By: #### A LLBG ####[facility] LABORATORYCLIA [id number] [address] [place] Calcium.ionized (BldV) [Mass/Vol] 1.33 mmol/L High 1.08-1.30 [facility] Comment on above: Order Comment: Speci men Type: ARTERIAL BLOOD SPECIMENOrdering Facility: [facility] Address: [address] [place] [address] Performed By: #### A LLBG ####[facility] LABORATORYCLIA [id number] [address] Carboxyhemoglobin (BldA) [Mass fraction] 1.5 % Normal 0.0-2.0 [facility] Comment on above: Order Comment: Speci men Type: ARTERIAL BLOOD SPECIMENOrdering Facility: [facility] Address: [address] [place] [address] Result Comment: Carb oxyhemoglobin Reference Range for Smokers: 2.0-8.0% Performed By: #### A LLBG ####[facility] LABORATORYCLIA [id number] [address] CO2 (Bld) [Partial pressure] 46 mm Hg Normal 36-46 [facility] Comment on above: Order Comment: Speci men Type: ARTERIAL BLOOD SPECIMENOrdering Facility: [facility] Address: [address] [place] [address] Performed By: #### A LLBG ####[facility] LABORATORYCLIA [id number] [address] [place] CO2 [Moles/Vol] 26.4 mmol/L Normal 22-28 [facility] Comment on above: Order Comment: Speci men Type: ARTERIAL BLOOD SPECIMENOrdering Facility: [facility] Address: [address] [place] [address] Performed By: #### A LLBG ####[facility] LABORATORYCLIA [id number] [address] CO2 adjusted to patient's actual temperature (Bld) [Partial pressure] 48 mmHg High 36-46 [facility] Comment on above: Order Comment: Speci men Type: ARTERIAL BLOOD SPECIMENOrdering Facility: [facility] Address: [address] [place] [address] Performed By: #### A LLBG ####[facility] LABORATORYCLIA [id number] [address] [place] FIO2 100 % Normal [facility] Comment on above: Order Comment: Speci men Type: ARTERIAL BLOOD SPECIMENOrdering Facility: [facility] Address: [address] [place] [address] Performed By: #### A LLBG ####[facility] LABORATORYCLIA [id number] [address] [place] Glucose [Mass/Vol] 132 mg/dL High 60-105 [facility] Comment on above: Order Comment: Speci men Type: ARTERIAL BLOOD SPECIMENOrdering Facility: [facility] Address: [address] [place] [address] Performed By: #### A LLBG ####[facility] LABORATORYCLIA [id number] [address] [place] HCO3 (Bld) [Moles/Vol] 29 mmol/L High 22-26 [facility] Comment on above: Order Comment: Speci men Type: ARTERIAL BLOOD SPECIMENOrdering Facility: [facility] Address: [address] [place] [address] Performed By: #### A LLBG ####[facility] LABORATORYCLIA [id number] [address] [facility] Hematocrit (Bld) [Volume fraction] 32.3 % Low 39.0-51.0 [facility] Comment on above: Order Comment: Speci men Type: ARTERIAL BLOOD SPECIMENOrdering Facility: [facility] Address: [address] [place] [address] Performed By: #### A LLBG ####[facility] LABORATORYCLIA [id number] [address] [place] Hemoglobin (Bld) [Mass/Vol] 10.4 g/dL Low 13.0-17.0 [facility] Comment on above: Order Comment: Speci men Type: ARTERIAL BLOOD SPECIMENOrdering Facility: [facility] Address: [address] [place] [address] Performed By: #### A LLBG ####[facility] LABORATORYCLIA [id number] [address] Methemoglobin (Bld) [Mass fraction] % Normal 0.0-1.5 [facility] Comment on above: Order Comment: Speci men Type: ARTERIAL BLOOD SPECIMENOrdering Facility: [facility] Address: [address] [place] [address] Performed By: #### A LLBG ####[facility] LABORATORYCLIA [id number] [address] O2 THERAPY NR=Non-Rebreather Mask Normal [facility] Comment on above: Order Comment: Speci men Type: ARTERIAL BLOOD SPECIMENOrdering Facility: [facility] Address: [address] [place] [address] Performed By: #### A LLBG ####[facility] LABORATORYCLIA [id number] [address] [place] Oxygen (Bld) [Partial pressure] 130 mm Hg High 85-95 [facility] Comment on above: Order Comment: Speci men Type: ARTERIAL BLOOD SPECIMENOrdering Facility: [facility] Address: [address] [place] [address] Performed By: #### A LLBG ####[facility] LABORATORYCLIA [id number] [address] [place] Oxygen adjusted to patient's actual temperature (Bld) [Partial pressure] 136 mmHg High 85-95 [facility] Comment on above: Order Comment: Speci men Type: ARTERIAL BLOOD SPECIMENOrdering Facility: [facility] Address: [address] [place] [address] Performed By: #### A LLBG ####[facility] LABORATORYCLIA [id number] [address] [place] OXYGEN SATURATION, ARTERIAL 99 % High 95-98 [facility] Comment on above: Order Comment: Speci men Type: ARTERIAL BLOOD SPECIMENOrdering Facility: [facility] Address: [address] [place] [address] Performed By: #### A LLBG ####[facility] LABORATORYCLIA [id number] [address] [place] Oxyhemoglobin (BldA) [Mass fraction] 97 % Normal 95-98 [facility] Comment on above: Order Comment: Speci men Type: ARTERIAL BLOOD SPECIMENOrdering Facility: [facility] Address: [address] [address] Performed By: #### A LLBG ####[facility] LABORATORYCLIA [id number] [address] [place] pH (Bld) 7.41 [pH] Normal 7.35-7.45 [facility] Comment on above: Order Comment: Speci men Type: ARTERIAL BLOOD SPECIMENOrdering Facility: [facility] Address: [address] [place] [address] Performed By: #### A LLBG ####[facility] LABORATORYCLIA [id number] [address] STATES [facility] pH adjusted to patient's actual temperature (Bld) 7.40 Normal 7.35-7.45 [facility] Comment on above: Order Comment: Speci men Type: ARTERIAL BLOOD SPECIMENOrdering Facility: [facility] Address: [address] [place] [address] Performed By: #### A LLBG ####[facility] LABORATORYCLIA [id number] [address] OF [facility] Potassium [Moles/Vol] 3.8 mmol/L Normal 3.5-5.0 [facility] Comment on above: Order Comment: Speci men Type: ARTERIAL BLOOD SPECIMENOrdering Facility: [facility] Address: [address] [place] [address] Performed By: #### A LLBG ####[facility] LABORATORYCLIA [id number] [address] STATES [facility] Sodium [Moles/Vol] 166 mmol/L High 136-144 [facility] Comment on above: Order Comment: Speci men Type: ARTERIAL BLOOD SPECIMENOrdering Facility: [facility] Address: [address] [place] [address] Performed By: #### A LLBG ####[facility] LABORATORYCLIA [id number] [address] [place] Bacteria Bld Culton 06-15-19 22 Bacteria identified Cx Nom (Bld) CULTURE, BLOOD: No growth 5 days Normal [facility] Comment on above: Performed By: #### 6 00-7 ####[facility] LABORATORYCLIA [id number] [address] [place] Basic metabolic 2000 panelon 06-15-2021 Anion gap [Moles/Vol] 9 mmol/L Normal 9-18 [facility] Comment on above: Order Comment: Speci men Type: BLOOD SPECIMEN Performed By: #### 2 4321-2, 2776-05, ####[facility] LABORATORYCLIA [id number] [place], [place] [address] [place] [address] [place] [facility] Calcium [Mass/Vol] 9.0 mg/dL Normal 8.5-10.2 [facility] Comment on above: Order Comment: Speci men Type: BLOOD SPECIMEN Performed By: #### 2 4321-2, 2776-05, ####[facility] LABORATORYCLIA [id number] [place], [place] [id number] [place] [address] [place] Chloride [Moles/Vol] 125 mmol/L High 97-105 [facility] Comment on above: Order Comment: Speci men Type: BLOOD SPECIMEN Performed By: #### 2 4321-2, 2776-05, ####[facility] LABORATORYCLIA [id number] [address] [place] CO2 [Moles/Vol] 29 mmol/L Normal 22-30 [facility] Comment on above: Order Comment: Speci men Type: BLOOD SPECIMEN Performed By: #### 2 4321-2, 2776-05, ####[facility] LABORATORYCLIA [id number] [address] [place] Creatinine [Mass/Vol] 0.81 mg/dL Normal 0.73-1.22 [facility] Comment on above: Order Comment: Speci men Type: BLOOD SPECIMEN Performed By: #### 2 4321-2, 2776-05, ####[facility] LABORATORYCLIA [id number] [place] [address] [place] GFR/1.73 sq M.predicted [...] GFR. Performed By: #### 2 4321-2, 2776-05, ####[facility] LABORATORYCLIA [id number] [place] [address] [place] Glucose [Mass/Vol] 124 mg/dL High 74-99 [facility] Comment on above: Order Comment: Speci men Type: BLOOD SPECIMEN Result Comment: The [place] [employer] (ADA) provides guidance for cutoff [...] Standards of Medical Care in Diabetes 2016, [place] [employer]. Diabetes Care. 2016.39(Suppl 1). Performed By: #### 2 4321-2, 2776-05, ####[facility] LABORATORYCLIA [id number] [address] [place] Potassium [Moles/Vol] 3.8 mmol/L Normal 3.7-5.1 [facility] Comment on above: Order Comment: Speci men Type: BLOOD SPECIMEN Performed By: #### 2 4321-2, 2776-05, ####[facility] LABORATORYCLIA [id number] [address] [place] Sodium [Moles/Vol] 163 mmol/L High 136-144 [facility] Comment on above: Order Comment: Speci men Type: BLOOD SPECIMEN Performed By: #### 2 4321-2, 2776-1, ####[facility] LABORATORYCLIA [id number] [address] Urea nitrogen [Mass/Vol] 35 mg/dL High 9-24 [facility] Comment on above: Order Comment: Speci men Type: BLOOD SPECIMEN Performed By: #### 2 4321-2, 2776-, ####[facility] LABORATORYCLIA [id number] [address] CBC panel Auto (Bld)on 06-15 Erythrocyte distribution width (RBC) [Ratio] 16.3 % High 11.5-15.0 [facility] Comment on above: Order Comment: Speci men Type: BLOOD SPECIMENOrdering Facility: [facility] Address: [address] [place] [address] Performed By: #### 5 8410-2 ####[facility] LABORATORYCLIA [id number] [address] Hematocrit (Bld) [Volume fraction] 30.0 % Low 39.0-51.0 [facility] Comment on above: Order Comment: Speci men Type: BLOOD SPECIMENOrdering Facility: [facility] Address: [address] [place] [address] Performed By: #### 5 8410-2 ####[facility] LABORATORYCLIA [id number] [address] Hemoglobin (Bld) [Mass/Vol] 8.9 g/dL Low 13.0-17.0 [facility] Comment on above: Order Comment: Speci men Type: BLOOD SPECIMENOrdering Facility: [facility] Address: [address] [place] [address] Performed By: #### 5 8410-2 ####[facility] LABORATORYCLIA [id number] [address] MCH (RBC) [Entitic mass] 28.7 pg Normal 26.0-34.0 [facility] Comment on above: Order Comment: Speci men Type: BLOOD SPECIMENOrdering Facility: [facility] Address: [address] [place] [address] Performed By: #### 5 8410-2 ####[facility] LABORATORYCLIA [id number] [address] MCHC (RBC) [Mass/Vol] 29.7 g/dL Low 30.5-36.0 [facility] Comment on above: Order Comment: Speci men Type: BLOOD SPECIMENOrdering Facility: [facility] Address: [address] [place] [address] Performed By: #### 5 8410-2 ####[facility] LABORATORYCLIA [id number] [address] STATES [facility] MCV (RBC) [Entitic vol] 96.8 fL Normal 80.0-100.0 [facility] Comment on above: Order Comment: Speci men Type: BLOOD SPECIMENOrdering Facility: [facility] Address: [address] [place] [address] Performed By: #### 5 8410-2 ####[facility] LABORATORYCLIA [id number] [address] Nucleated RBC (Bld) [#/Vol] 10*3/uL Normal <0.01 [facility] Comment on above: Order Comment: Speci men Type: BLOOD SPECIMENOrdering Facility: [facility] Address: [address] [place] [address] Performed By: #### 5 8410-2 ####[facility] LABORATORYCLIA [id number] [address] Platelet mean volume (Bld) [Entitic vol] 12.3 fL Normal 9.0-12.7 [facility] Comment on above: Order Comment: Speci men Type: BLOOD SPECIMENOrdering Facility: [facility] Address: [address] [place] [address] Performed By: #### 5 8410-2 ####[facility] LABORATORYCLIA [id number] [address] [place] Platelets (Bld) [#/Vol] 226 10*3/uL Normal 150-400 [facility] Comment on above: Order Comment: Speci men Type: BLOOD SPECIMENOrdering Facility: [facility] Address: [address] [place] [address] Performed By: #### 5 8410-2 ####[facility] LABORATORYCLIA [id number] [address] OF [facility] RBC (Bld) [#/Vol] 3.10 10*6/uL Low 4.20-6.00 [facility] Comment on above: Order Comment: Speci men Type: BLOOD SPECIMENOrdering Facility: [facility] Address: [address] [place] [address] Performed By: #### 5 8410-2 ####[facility] LABORATORYCLIA [id number] [address] WBC (Bld) [#/Vol] 10.77 10*3/uL Normal 3.70-11.00 [facility] Comment on above: Order Comment: Speci men Type: BLOOD SPECIMENOrdering Facility: [facility] Address: [address] [place] [address] Performed By: #### 5 8410-2 ####[facility] LABORATORYCLIA [id number] [address] Erythrocyte distribution width (RBC) [Ratio] 16.2 % High 11.5-15.0 [facility] Comment on above: Order Comment: Speci men Type: BLOOD SPECIMENOrdering Facility: [facility] Address: [address] [place] [address] Performed By: #### 5 8410-2 ####[facility] LABORATORYCLIA [id number] [address] OF [facility] Hematocrit (Bld) [Volume fraction] 34.8 % Low 39.0-51.0 [facility] Comment on above: Order Comment: Speci men Type: BLOOD SPECIMENOrdering Facility: [facility] Address: [address] [place] [address] Performed By: #### 5 8410-2 ####[facility] LABORATORYCLIA [id number] [address] STATES [facility] Hemoglobin (Bld) [Mass/Vol] 10.0 g/dL Low 13.0-17.0 [facility] Comment on above: Order Comment: Speci men Type: BLOOD SPECIMENOrdering Facility: [facility] Address: [address] [place] [address] Performed By: #### 5 8410-2 ####[facility] LABORATORYCLIA [id number] [address] [place] [facility] MCH (RBC) [Entitic mass] 27.5 pg Normal 26.0-34.0 [facility] Comment on above: Order Comment: Speci men Type: BLOOD SPECIMENOrdering Facility: [facility] Address: [address] [place] [address] Performed By: #### 5 8410-2 ####[facility] LABORATORYCLIA [id number] [address] OF [facility] MCHC (RBC) [Mass/Vol] 28.7 g/dL Low 30.5-36.0 [facility] Comment on above: Order Comment: Speci men Type: BLOOD SPECIMENOrdering Facility: [facility] Address: [address] [place] [address] Performed By: #### 5 8410-2 ####[facility] LABORATORYCLIA [id number] [address] [place] MCV (RBC) [Entitic vol] 95.6 fL Normal 80.0-100.0 [facility] Comment on above: Order Comment: Speci men Type: BLOOD SPECIMENOrdering Facility: [facility] Address: [address] [place] [address] Performed By: #### 5 8410-2 ####[facility] LABORATORYCLIA [id number] [address] [place] Nucleated RBC (Bld) [#/Vol] 10*3/uL Normal <0.01 [facility] Comment on above: Order Comment: Speci men Type: BLOOD SPECIMENOrdering Facility: [facility] Address: [address] [place] [address] Performed By: #### 5 8410-2 ####[facility] LABORATORYCLIA [id number] [address] [place] Platelet mean volume (Bld) [Entitic vol] 11.9 fL Normal 9.0-12.7 [facility] Comment on above: Order Comment: Speci men Type: BLOOD SPECIMENOrdering Facility: [facility] Address: [address] [place] [address] Performed By: #### 5 8410-2 ####[facility] LABORATORYCLIA [id number] [address] [place] Platelets (Bld) [#/Vol] 246 10*3/uL Normal 150-400 [facility] Comment on above: Order Comment: Speci men Type: BLOOD SPECIMENOrdering Facility: [facility] Address: [address] [place] [address] Performed By: #### 5 8410-2 ####[facility] LABORATORYCLIA [id number] [address] [place] RBC (Bld) [#/Vol] 3.64 10*6/uL Low 4.20-6.00 [facility] Comment on above: Order Comment: Speci men Type: BLOOD SPECIMENOrdering Facility: [facility] Address: [address] [place] [address] Performed By: #### 5 8410-2 ####[facility] LABORATORYCLIA [id number] [address] [place] WBC (Bld) [#/Vol] 11.45 10*3/uL High 3.70-11.00 [facility] Comment on above: Order Comment: Speci men Type: BLOOD SPECIMENOrdering Facility: [facility] Address: [address] [place] [address] Performed By: #### 5 8410-2 ####[facility] LABORATORYCLIA [id number] [address] Erythrocyte distribution width (RBC) [Ratio] 15.9 % High 11.5-15.0 [facility] Comment on above: Order Comment: Speci men Type: BLOOD SPECIMEN Performed By: #### 5 8410-2 ####[facility] [facility]OSPITAL LABORATORYCLIA [id number] [address] Hematocrit (Bld) [Volume fraction] 35.8 % Low 39.0-51.0 [facility] Comment on above: Order Comment: Speci men Type: BLOOD SPECIMEN Performed By: #### 5 8410-2 ####[facility]ATORYCLIA [id number] [address] Hemoglobin (Bld) [Mass/Vol] 10.4 g/dL Low 13.0-17.0 [facility] Comment on above: Order Comment: Speci men Type: BLOOD SPECIMEN Performed By: #### 5 8410-2 ####[facility]ORATORYCLIA [id number] [address] MCH (RBC) [Entitic mass] 28.0 pg Normal 26.0-34.0 [facility] Comment on above: Order Comment: Speci men Type: BLOOD SPECIMEN Performed By: #### 5 8410-2 ####[facility]ORATORYCLIA [id number] [address] MCHC (RBC) [Mass/Vol] 29.1 g/dL Low 30.5-36.0 [facility] Comment on above: Order Comment: Speci men Type: BLOOD SPECIMEN Performed By: #### 5 8410-2 ####[facility]ORATORYCLIA [id number] [address] MCV (RBC) [Entitic vol] 96.2 fL Normal 80.0-100.0 [facility] Comment on above: Order Comment: Speci men Type: BLOOD SPECIMEN Performed By: #### 5 8410-2 ####[facility]ORATORYCLIA [id number] [address] Nucleated RBC (Bld) [#/Vol] 10*3/uL Normal <0.01 [facility] Comment on above: Order Comment: Speci men Type: BLOOD SPECIMEN Performed By: #### 5 8410-2 ####[facility]ORATORYCLIA [id number] [address] Platelet mean volume (Bld) [Entitic vol] 11.6 fL Normal 9.0-12.7 [facility] Comment on above: Order Comment: Speci men Type: BLOOD SPECIMEN Performed By: #### 5 8410-2 ####[facility]ORATORYCLIA [id number] [address] Platelets (Bld) [#/Vol] 265 10*3/uL Normal 150-400 [facility] Comment on above: Order Comment: Speci men Type: BLOOD SPECIMEN Performed By: #### 5 8410-2 ####[facility]ATORYCLIA [id number] [address] RBC (Bld) [#/Vol] 3.72 10*6/uL Low 4.20-6.00 [facility] Comment on above: Order Comment: Speci men Type: BLOOD SPECIMEN Performed By: #### 5 8410-2 ####[facility]ORATORYCLIA [id number] [address] WBC (Bld) [#/Vol] 12.24 10*3/uL High 3.70-11.00 [facility] Comment on above: Order Comment: Speci men Type: BLOOD SPECIMEN Performed By: #### 5 8410-2 ####[facility]ORATORYCLIA [id number] [address] CONSULTon 06-15-2021 CONSULT Normal [facility] [...] Type: URINE SPECIMENOrdering Facility: [facility] Address: [address] [place] [address] Performed By: #### U TPR, 28173-1, 94277-6, 14107-6 ####[facility]ORATORYCLIA [id number] [address] Comprehensive metabolic 2000 panelon 06-15-2021 Albumin [Mass/Vol] 2.8 g/dL Low 3.9-4.9 [facility] Comment on above: Order Comment: Speci men Type: BLOOD SPECIMENOrdering Facility: [facility] Address: [address] [place] [address] Performed By: #### 2 4323-8 ####[facility] LABORATORYCLIA [id number] [address] ALP [Catalytic activity/Vol] 74 U/L Normal 38-113 [facility] Comment on above: Order Comment: Speci men Type: BLOOD SPECIMENOrdering Facility: [facility] Address: [address] [place] [address] Performed By: #### 2 4323-8 ####[facility] LABORATORYCLIA [id number] [address] ALT With P-5'-P [Catalytic activity/Vol] 50 U/L Normal 10-54 [facility] Comment on above: Order Comment: Speci men Type: BLOOD SPECIMENOrdering Facility: [facility] Address: [address] [place] [address] Performed By: #### 2 4323-8 ####[facility]ORATORYCLIA [id number] [place] [address] [place] Anion gap [Moles/Vol] 12 mmol/L Normal 9-18 [facility] Comment on above: Order Comment: Speci men Type: BLOOD SPECIMENOrdering Facility: [facility] Address: [address] [place] [address] Performed By: #### 2 4323-8 ####[facility]ORATORYCLIA [id number] [place] [address] [place] AST With P-5'-P [Catalytic activity/Vol] 36 U/L Normal 14-40 [facility] Comment on above: Order Comment: Speci men Type: BLOOD SPECIMENOrdering Facility: [facility] Address: [address] [place] [address] Performed By: #### 2 4323-8 ####[facility] LABORATORYCLIA [id number] [address] [place] Bilirubin [Mass/Vol] 0.5 mg/dL Normal 0.2-1.3 [facility] Comment on above: Order Comment: Speci men Type: BLOOD SPECIMENOrdering Facility: [facility] Address: [address] [place] [address] Performed By: #### 2 4323-8 ####[facility] LABORATORYCLIA [id number] [address] [place] Calcium [Mass/Vol] 8.8 mg/dL Normal 8.5-10.2 [facility] Comment on above: Order Comment: Speci men Type: BLOOD SPECIMENOrdering Facility: [facility] Address: [address] [place] [address] Performed By: #### 2 4323-8 ####[facility]ORATORYCLIA [id number] [place] [address] [place] Chloride [Moles/Vol] 126 mmol/L High 97-105 [facility] Comment on above: Order Comment: Speci men Type: BLOOD SPECIMENOrdering Facility: [facility] Address: [address] [place] [address] Performed By: #### 2 4323-8 ####[facility] LABORATORYCLIA [id number] [address] [place] CO2 [Moles/Vol] 24 mmol/L Normal 22-30 [facility] Comment on above: Order Comment: Speci men Type: BLOOD SPECIMENOrdering Facility: [facility] Address: [address] [place] [address] Performed By: #### 2 4323-8 ####[facility]ORATORYCLIA [id number] [place] [address] [place] Creatinine [Mass/Vol] 0.84 mg/dL Normal 0.73-1.22 [facility] Comment on above: Order Comment: Speci men Type: BLOOD SPECIMENOrdering Facility: [facility] Address: [address] [place] [address] Performed By: #### 2 4323-8 ####[facility]ORATORYCLIA [id number] [place] [address] [place] GFR/1.73 sq M.predicted MDRD (S/P/Bld) [Vol rate/Area] mL/min/{1.73_m2} Normal [facility] Comment on above: Order Comment: Speci men Type: BLOOD SPECIMENOrdering Facility: [facility] Address: [address] [place] [address] Result Comment: >60e GFR (Estimated GFR) Units [...] actual GFR. Performed By: #### 2 4323-8 ####[facility]ORATORYCLIA [id number] [place] [address] [place] Glucose [Mass/Vol] 142 mg/dL High 74-99 [facility] Comment on above: Order Comment: Shira men Type: BLOOD SPECIMENOrdering Facility: [facility] Address: [address] [place] [address] Result Comment: The [place] [employer] (ADA) provides guidance for cutoff [...] Standards of Medical Care in Diabetes 2016, [place] [employer]. Diabetes Care. 2016.39(Suppl 1). Performed By: #### 2 4323-8 ####[facility]ORATORYCLIA [id number] [place] [address] [place] Potassium [Moles/Vol] 3.8 mmol/L Normal 3.7-5.1 [facility] Comment on above: Order Comment: Shira feldman Type: BLOOD SPECIMENOrdering Facility: [facility] Address: [address] [place] [address] Performed By: #### 2 4323-8 ####[facility]ORATORYCLIA [id number] [place] [address] [place] Protein [Mass/Vol] 6.1 g/dL Low 6.3-8.0 [facility] Comment on above: Order Comment: Johni men Type: BLOOD SPECIMENOrdering Facility: [facility] Address: [address] [place] [address] Performed By: #### 2 4323-8 ####[facility] LABORATORYCLIA [id number] [place] [address] [place] Sodium [Moles/Vol] 162 mmol/L High 136-144 [facility] Comment on above: Order Comment: Speci men Type: BLOOD SPECIMENOrdering Facility: [facility] Address: [address] [place] [address] Performed By: #### 2 4323-8 ####[facility] LABORATORYCLIA [id number] [place] [address] [place] Urea nitrogen [Mass/Vol] 33 mg/dL High 9-24 [facility] Comment on above: Order Comment: Speci men Type: BLOOD SPECIMENOrdering Facility: [facility] Address: [address] [place] [address] Performed By: #### 2 4323-8 ####[facility]ORATORYCLIA [id number] [place] [address] [place] Creatinine Unsp time (U) [Ma ss/Vol]on 06-15-2021 Creatinine (U) [Mass/Vol] 87.0 mg/dL Normal 46.8-314.5 [facility] Comment on above: Order Comment: Speci men Type: URINE SPECIMENOrdering Facility: [facility] Address: [address] [place] [address] Performed By: #### U TPR, 42857-7, 08347-9, 88815-5 ####[facility] LABORATORYCLIA [id number] [place] [address] [place] HIGH SENSITIVITY TROPONIN To n 06-15-2021 HIGH SENSITIVITY TAMIKO 23 ng/L High <12 [facility] Comment on above: Order Comment: Speci men Type: BLOOD SPECIMENOrdering Facility: [facility] Address: [address] [place] [address] Result Comment: When assessing risk for acute [...] Performed By: #### P Chelo WHITAKER62-6, HSTNT ####[facility]ITALCLIA [id number] [address] [place] [facility] Lactate (Bld) [Moles/Vol]on 06-15-2021 Lactate [Moles/Vol] 0.8 mmol/L Normal 0.5-2.2 [facility] Comment on above: Order Comment: Speci men Type: BLOOD SPECIMENOrdering Facility: [facility] Address: [address] [place] [address] Performed By: #### 3 2693-4 ####[facility]ITALCLIA [id number] [address] [place] [facility] Enterprisel-ncon 06-15 Magnesium [Mass/Vol] 3.0 mg/dL High 1.7-2.3 [facility] Comment on above: Order Comment: Speci men Type: BLOOD SPECIMEN Performed By: #### 2 4321-2, 2777-1, 94796-6 ####[facility]ITALCLIA [id number] [address] [place] [facility] Healthcareon [facility]-15 Natriuretic peptide.B prohormone N-Terminal [Mass/Vol] 265 pg/mL High <125 [facility] Comment on above: Order Comment: Speci men Type: BLOOD SPECIMENOrdering Facility: [facility] Address: [address] [place] [address] Performed By: #### P JULIANNE, 89733-8, HSTNT ####[facility] LABORATORYCLIA [id number] [place] [address] [place] Osmolality Uron 06-15-2021 Osmolality (U) [Osmolality] 606 mosm/kg Normal 50-1,200 [facility] Comment on above: Order Comment: Speci men Type: URINE SPECIMENOrdering Facility: [facility] Address: [address] [place] [address] Performed By: #### 2 695-5 ####[facility]ITALCLIA [id number] [address] PROCALCITONIN (LAB)on 2021 Procalcitonin [Mass/Vol] 0.21 ng/mL High <0.09 [facility] Comment on above: Order Comment: Speci men Type: BLOOD SPECIMENOrdering Facility: [facility] Address: [address] [place] [address] Result Comment: For a guided interpretation of test results, please visit the Change in Procalcitonin Calculator, [email or web address]. Performed By: #### P JULIANNE, 2951-2 ####[facility] LABORATORYIA [id number] [address] Procalcitonin [Mass/Vol] 0.17 ng/mL High <0.09 [facility] Comment on above: Order Comment: Speci men Type: BLOOD SPECIMENOrdering Facility: [facility] Address: [address] [place] [address] Result Comment: For a guided interpretation of test results, please visit the Change in Procalcitonin Calculator, [email or web address]. Performed By: #### P JULIANNE, 29846-5, HSTNT ####[facility]ITALIA [id number] [address] PROTEIN RANDOM URon 06-15-19 22 Protein (U) [Mass/Vol] 175 mg/dL High 0-20 [facility] Comment on above: Order Comment: Speci men Type: URINE SPECIMENOrdering Facility: [facility] Address: [address] [place] [address] Performed By: #### U TPR, 33793-5, 57134-7, 93727-7 ####[facility] LABORATORYCLIA [id number] [address] PT panel Coag (PPP)on 2021 INR Coag (PPP) [Relative time] 1.1 {INR} Normal <1.4 [facility] Comment on above: Order Comment: Speci men Type: BLOOD SPECIMENOrdering Facility: [facility] Address: [address] [place] [address] Result Comment: Yris min K Antagonist (VKA) Therapeutic Range: INR 2 to 3 (Target INR of 2.5)Note: For patients treated with VKA drugs, such as warfarin, the [place] [employer] 2012 Guideline recommends [...] al. Chest 2012, 141:7S-47SNishmariangel RA, et al. [facility] 2017, 70: 252-289 Performed By: #### 3 4528-0, 82355-0 ####[facility] LABORATORYCLIA [id number] [place] [address] [place] PT Coag (PPP) [Time] 11.4 s Normal <13.1 [facility] Comment on above: Order Comment: Shira feldman Type: BLOOD SPECIMENOrdering Facility: [facility] Address: [address] [place], [place] [address] Performed By: #### 3 4528-0, 71000-0 ####[facility]ORATORYCLIA [id number] [place] [address] [place] Phosphate SerPl-mCncon 06-15 Phosphate [Mass/Vol] 2.6 mg/dL Low 2.7-4.8 [facility] Comment on above: Order Comment: Shira feldman Type: BLOOD SPECIMEN Performed By: #### 2 4321-2, 2777-1, 41427-0 ####[facility]ORATORYCLIA [id number] [address] [place] Sodium ?Tm Ur-sCncon 022 Sodium Unsp time (U) [Moles/Vol] 34 mmol/L Normal 14-216 [facility] Comment on above: Order Comment: Speci men Type: URINE SPECIMENOrdering Facility: [facility] Address: [address] [place] [address] Performed By: #### U TPR, 16736-4, 78929-7, 33694-4 ####[facility]ORATORYCLIA [id number] [address] [place] Sodium SerPl-sCncon 06-15-19 22 Sodium [Moles/Vol] 159 mmol/L High 136-144 [facility] Comment on above: Order Comment: Speci men Type: BLOOD SPECIMENOrdering Facility: [facility] Address: [address] [place] [address] Performed By: #### P JULIANNE, 2951-2 ####[facility]ORATORYCLIA [id number] [address] THERAPY NTon 06-15-2021 THERAPY NT Normal [facility] Urinalysis complete panel (U )on 06-15-2021 Bacteria LM.HPF (Urine sed) [#/Area] None Seen Normal None Seen [facility] Comment on above: Order Comment: Speci men Type: URINE SPECIMENOrdering Facility: [facility] Address: [address] [place] [address] Performed By: #### 2 4356-8 ####[facility]ORATORYCLIA [id number] [address] [place] Bilirubin Ql (U) Negative Normal Negative [facility] Comment on above: Order Comment: Speci men Type: URINE SPECIMENOrdering Facility: [facility] Address: [address] [place] [address] Performed By: #### 2 4356-8 ####[facility]ORATORYCLIA [id number] [address] [place] Clarity (Unsp spec) Cloudy Abnormal Clear [facility] Comment on above: Order Comment: Speci men Type: URINE SPECIMENOrdering Facility: [facility] Address: [address] [place] [address] Performed By: #### 2 4356-8 ####[facility]ORATORYCLIA [id number] [address] Color (U) Yellow Normal Yellow [facility] Comment on above: Order Comment: Speci men Type: URINE SPECIMENOrdering Facility: [facility] Address: [address] [place] [address] Performed By: #### 2 4356-8 ####[facility]ORATORYCLIA [id number] [address] Epithelial cells LM.HPF (Urine sed) [#/Area] 7.1 /[HPF] Normal [facility] Comment on above: Order Comment: Speci men Type: URINE SPECIMENOrdering Facility: [facility] Address: [address] [place] [address] Performed By: #### 2 4356-8 ####[facility]ORATORYCLIA [id number] [address] Glucose Test strip (U) [Mass/Vol] Negative Normal Negative [facility] Comment on above: Order Comment: Speci men Type: URINE SPECIMENOrdering Facility: [facility] Address: [address] [place] [address] Performed By: #### 2 4356-8 ####[facility]ORATORYCLIA [id number] [address] Granular casts (Urine sed) [#/Area] /[LPF] Abnormal 0 /LPF [facility] Comment on above: Order Comment: Speci men Type: URINE SPECIMENOrdering Facility: [facility] Address: [address] [place] [address] Performed By: #### 2 4356-8 ####[facility]ORATORYCLIA [id number] [address] Hemoglobin Ql (U) Moderate Abnormal Negative [facility] Comment on above: Order Comment: Speci men Type: URINE SPECIMENOrdering Facility: [facility] Address: [address] [place] [address] Performed By: #### 2 4356-8 ####[facility]ORATORYCLIA [id number] [address] OF [facility] Hyaline casts (Urine sed) [#/Area] /[LPF] Abnormal 0 /LPF [facility] Comment on above: Order Comment: Speci men Type: URINE SPECIMENOrdering Facility: [facility] Address: [address] [place] [address] Performed By: #### 2 4356-8 ####[facility]ATORYCLIA [id number] [address] Ketones Ql (U) Negative Normal Negative [facility] Comment on above: Order Comment: Speci men Type: URINE SPECIMENOrdering Facility: [facility] Address: [address] [place] [address] Performed By: #### 2 4356-8 ####[facility]ATORYCLIA [id number] [address] Leukocyte esterase Test strip Ql (U) Negative Normal Negative [facility] Comment on above: Order Comment: Speci men Type: URINE SPECIMENOrdering Facility: [facility] Address: [address] [place] [address] Performed By: #### 2 4356-8 ####[facility]ORATORYCLIA [id number] [address] Nitrite Ql (U) Negative Normal Negative [facility] Comment on above: Order Comment: Speci men Type: URINE SPECIMENOrdering Facility: [facility] Address: [address] [place] [address] Performed By: #### 2 4356-8 ####[facility]ORATORYCLIA [id number] [address] [place] pH (U) 6.0 [pH] Normal 5.0-8.0 [facility] Comment on above: Order Comment: Speci men Type: URINE SPECIMENOrdering Facility: [facility] Address: [address] [place] [address] Performed By: #### 2 4356-8 ####[facility]ATORYCLIA [id number] [address] Protein (U) [Mass/Vol] 100 mg/dL Abnormal Negative [facility] Comment on above: Order Comment: Speci men Type: URINE SPECIMENOrdering Facility: [facility] Address: [address] [place] [address] Performed By: #### 2 4356-8 ####[facility]ORATORYCLIA [id number] [address] [place] RBC LM.HPF (Urine sed) [#/Area] 0-3 /HPF Normal 0-3 /HPF [facility] Comment on above: Order Comment: Speci men Type: URINE SPECIMENOrdering Facility: [facility] Address: [address] [place] [address] Performed By: #### 2 4356-8 ####[facility]ORATORYCLIA [id number] [address] Specific gravity (U) [Rel density] 1.024 Normal 1.005-1.030 [facility] Comment on above: Order Comment: Speci men Type: URINE SPECIMENOrdering Facility: [facility] Address: [address] [place] [address] Performed By: #### 2 4356-8 ####[facility]ORATORYCLIA [id number] [address] Urobilinogen Ql (U) 0.2 EU/dL Normal 0.2-1.0 EU/dL [facility] Comment on above: Order Comment: Speci men Type: URINE SPECIMENOrdering Facility: [facility] Address: [address] [place] [address] Performed By: #### 2 4356-8 ####[facility]ORATORYCLIA [id number] [place] [address] [place] WBC LM.HPF (Urine sed) [#/Area] 0-5 /HPF Normal 0-5 /HPF [facility] Comment on above: Order Comment: Speci men Type: URINE SPECIMENOrdering Facility: [facility] Address: [address] [place] [address] Performed By: #### 2 4356-8 ####[facility]ATORYCLIA [id number] [address] [place] XR CHEST 1V FRONTALon 2021 XR CHEST 1V FRONTAL Normal [facility] XR CHEST 1V FRONTAL PORTon 0 06-15-2021 XR CHEST 1V FRONTAL PORT Normal [facility] XR CHEST 1V FRONTAL PORT Normal [facility] aPTT PPPon 06-15-2021 aPTT Coag (PPP) [Time] 30.9 s Normal 23.0-32.4 [facility] Comment on above: Order Comment: Speci men Type: BLOOD SPECIMENOrdering Facility: [facility] Address: [address] [place] [address] Performed By: #### 3 4528-0, 62090-7 ####[facility]ORATORYCLIA [id number] [place] [address] [place] Basic metabolic 2000 panelon 06-14-2021 Anion gap [Moles/Vol] 8 mmol/L Low 9-18 [facility] Comment on above: Order Comment: Speci men Type: BLOOD SPECIMEN Performed By: #### 2 4321-2, 2776-1, ####[facility]ATORYCLIA [id number] [place] [address] [place] Calcium [Mass/Vol] 8.9 mg/dL Normal 8.5-10.2 [facility] Comment on above: Order Comment: Speci men Type: BLOOD SPECIMEN Performed By: #### 2 4321-2, 2777-1, ####[facility]ORATORYCLIA [id number] [place], [place] [id number] [place] [address] [place] Chloride [Moles/Vol] 121 mmol/L High 97-105 [facility] Comment on above: Order Comment: Speci men Type: BLOOD SPECIMEN Performed By: #### 2 4321-2, 2776-05, ####[facility]ATORYCLIA [id number] [place] [address] [place] CO2 [Moles/Vol] 30 mmol/L Normal 22-30 [facility] Comment on above: Order Comment: Speci men Type: BLOOD SPECIMEN Performed By: #### 2 4321-2, 2776-05, ####[facility] [id number] [address] [place] [facility] Creatinine [Mass/Vol] 0.78 mg/dL Normal 0.73-1.22 [facility] Comment on above: Order Comment: Speci men Type: BLOOD SPECIMEN Performed By: #### 2 4321-2, 2776-05, ####[facility]ATORYCLIA [id number] [place] [address] [place] GFR/1.73 sq M.predicted [...] GFR. Performed By: #### 2 4321-2, 2777, ####[facility] LABORATORYCLIA [id number] [place] [address] [place] Glucose [Mass/Vol] 132 mg/dL High 74-99 [facility] Comment on above: Order Comment: Speci men Type: BLOOD SPECIMEN Result Comment: The [place] [employer] (ADA) provides guidance for cutoff [...] Standards of Medical Care in Diabetes 2016, [place] [employer]. Diabetes Care. 2016.39(Suppl 1). Performed By: #### 2 4321-2, 2776-05, ####[facility] LABORATORYCLIA [id number] [address] [place] Potassium [Moles/Vol] 3.7 mmol/L Normal 3.7-5.1 [facility] Comment on above: Order Comment: Speci men Type: BLOOD SPECIMEN Performed By: #### 2 4321-2, 2776-05, ####[facility] LABORATORYCLIA [id number] [address] [place] Sodium [Moles/Vol] 159 mmol/L High 136-144 [facility] Comment on above: Order Comment: Speci men Type: BLOOD SPECIMEN Performed By: #### 2 4321-2, 2776-05, ####[facility]ORATORYCLIA [id number] [place] [address] [place] Urea nitrogen [Mass/Vol] 35 mg/dL High 9-24 [facility] Comment on above: Order Comment: Speci men Type: BLOOD SPECIMEN Performed By: #### 2 4321-2, 2776-05, ####[facility] LABORATORYCLIA [id number] [address] CASE MANAGEMon 06-14-2021 CASE MANAGEM Normal [facility] CBC panel Auto (Bld)on 06-14 Erythrocyte distribution width (RBC) [Ratio] 16.2 % High 11.5-15.0 [facility] Comment on above: Order Comment: Speci men Type: BLOOD SPECIMEN Performed By: #### 5 8410-2 ####[facility] LABORATORYCLIA [id number] [address] Hematocrit (Bld) [Volume fraction] 35.2 % Low 39.0-51.0 [facility] Comment on above: Order Comment: Speci men Type: BLOOD SPECIMEN Performed By: #### 5 8410-2 ####[facility]ORATORYCLIA [id number] [address] Hemoglobin (Bld) [Mass/Vol] 10.1 g/dL Low 13.0-17.0 [facility] Comment on above: Order Comment: Speci men Type: BLOOD SPECIMEN Performed By: #### 5 8410-2 ####[facility] LABORATORYCLIA [id number] [address] MCH (RBC) [Entitic mass] 27.2 pg Normal 26.0-34.0 [facility] Comment on above: Order Comment: Speci men Type: BLOOD SPECIMEN Performed By: #### 5 8410-2 ####[facility]ORATORYCLIA [id number] [address] MCHC (RBC) [Mass/Vol] 28.7 g/dL Low 30.5-36.0 [facility] Comment on above: Order Comment: Speci men Type: BLOOD SPECIMEN Performed By: #### 5 8410-2 ####[facility]ORATORYCLIA [id number] [address] MCV (RBC) [Entitic vol] 94.6 fL Normal 80.0-100.0 [facility] Comment on above: Order Comment: Speci men Type: BLOOD SPECIMEN Performed By: #### 5 8410-2 ####[facility]ORATORYCLIA [id number] [address] Nucleated RBC (Bld) [#/Vol] 10*3/uL Normal <0.01 [facility] Comment on above: Order Comment: Speci men Type: BLOOD SPECIMEN Performed By: #### 5 8410-2 ####[facility]ORATORYCLIA [id number] [address] Platelet mean volume (Bld) [Entitic vol] 11.0 fL Normal 9.0-12.7 [facility] Comment on above: Order Comment: Speci men Type: BLOOD SPECIMEN Performed By: #### 5 8410-2 ####[facility]ORATORYCLIA [id number] [address] Platelets (Bld) [#/Vol] 287 10*3/uL Normal 150-400 [facility] Comment on above: Order Comment: Speci men Type: BLOOD SPECIMEN Performed By: #### 5 8410-2 ####[facility]ATORYCLIA [id number] [address] RBC (Bld) [#/Vol] 3.72 10*6/uL Low 4.20-6.00 [facility] Comment on above: Order Comment: Speci men Type: BLOOD SPECIMEN Performed By: #### 5 8410-2 ####[facility]ORATORYCLIA [id number] [address] WBC (Bld) [#/Vol] 12.23 10*3/uL High 3.70-11.00 [facility] Comment on above: Order Comment: Speci men Type: BLOOD SPECIMEN Performed By: #### 5 8410-2 ####[facility]ORATORYCLIA [id number] [address] Comprehensive metabolic 2000 panelon 06-14-2021 Albumin [Mass/Vol] 3.1 g/dL Low 3.9-4.9 [facility] Comment on above: Order Comment: Speci men Type: BLOOD SPECIMEN Performed By: #### 2 4323-8, HSTNT, 2776-05, ####[facility]ATORYCLIA [id number] [place], [place] [id number] [place] [address] ALP [Catalytic activity/Vol] 72 U/L Normal 38-113 [facility] Comment on above: Order Comment: Speci men Type: BLOOD SPECIMEN Performed By: #### 2 4323-8, HSTNT, 2776-05, ####[facility] LABORATORYCLIA [id number] [address] ALT With P-5'-P [Catalytic activity/Vol] 57 U/L High 10-54 [facility] Comment on above: Order Comment: Speci men Type: BLOOD SPECIMEN Performed By: #### 2 4323-8, HSTNT, 2776-05, ####[facility]ATORYCLIA [id number] [address] Anion gap [Moles/Vol] 9 mmol/L Normal 9-18 [facility] Comment on above: Order Comment: Speci men Type: BLOOD SPECIMEN Performed By: #### 2 4323-8, HSTNT, 2776-05, ####[facility]ATORYCLIA [id number] [place], [place] [address] [place] [address] AST With P-5'-P [Catalytic activity/Vol] 33 U/L Normal 14-40 [facility] Comment on above: Order Comment: Speci men Type: BLOOD SPECIMEN Performed By: #### 2 4323-8, HSTNT, 2776-05, ####[facility]ATORYCLIA [id number] [address] Bilirubin [Mass/Vol] 0.5 mg/dL Normal 0.2-1.3 [facility] Comment on above: Order Comment: Speci men Type: BLOOD SPECIMEN Performed By: #### 2 4323-8, HSTNT, 2776-05, ####[facility]ORATORYCLIA [id number] [place] [address] [place] Calcium [Mass/Vol] 8.8 mg/dL Normal 8.5-10.2 [facility] Comment on above: Order Comment: Speci men Type: BLOOD SPECIMEN Performed By: #### 2 4323-8, HSTNT, 2776-05, ####[facility]ORATORYCLIA [id number] [address] [place] Chloride [Moles/Vol] 124 mmol/L High 97-105 [facility] Comment on above: Order Comment: Speci men Type: BLOOD SPECIMEN Performed By: #### 2 4323-8, HSTNT, 2776-05, ####[facility]ATORYCLIA [id number] [address] [place] CO2 [Moles/Vol] 29 mmol/L Normal 22-30 [facility] Comment on above: Order Comment: Speci men Type: BLOOD SPECIMEN Performed By: #### 2 4323-8, HSTNT, 2776-05, ####[facility]ATORYCLIA [id number] [address] [place] Creatinine [Mass/Vol] 0.73 mg/dL Normal 0.73-1.22 [facility] Comment on above: Order Comment: Speci men Type: BLOOD SPECIMEN Performed By: #### 2 4323-8, HSTNT, 2776-05, ####[facility]ORATORYCLIA [id number] [place] [address] [place] GFR/1.73 sq M.predicted [...] GFR. Performed By: #### 2 4323-8, HSTNT, ####[facility]ORATORYCLIA [id number] [place] [address] [place] Glucose [Mass/Vol] 137 mg/dL High 74-99 [facility] Comment on above: Order Comment: Speci men Type: BLOOD SPECIMEN Result Comment: The [place] [employer] (ADA) provides guidance for cutoff [...] Standards of Medical Care in Diabetes 2016, [place] [employer]. Diabetes Care. 2016.39(Suppl 1). Performed By: #### 2 4323-8, HSTNT, ####[facility]ORATORYCLIA [id number] [place] [address] [place] Potassium [Moles/Vol] 3.6 mmol/L Low 3.7-5.1 [facility] Comment on above: Order Comment: Speci men Type: BLOOD SPECIMEN Performed By: #### 2 4323-8, HSTNT, ####[facility]ORATORYCLIA [id number] [place] [address] [place] Protein [Mass/Vol] 5.9 g/dL Low 6.3-8.0 [facility] Comment on above: Order Comment: Speci men Type: BLOOD SPECIMEN Performed By: #### 2 4323-8, HSTNT, 2776-05, ####[facility]ORATORYCLIA [id number] [place], [place] [address] [place] [address] Sodium [Moles/Vol] 162 mmol/L High 136-144 [facility] Comment on above: Order Comment: Speci men Type: BLOOD SPECIMEN Performed By: #### 2 4323-8, HSTNT, 2776-05, ####[facility]ORATORYCLIA [id number] [address] Urea nitrogen [Mass/Vol] 33 mg/dL High 9-24 [facility] Comment on above: Order Comment: Speci men Type: BLOOD SPECIMEN Performed By: #### 2 4323-8, HSTNT, 2776-05, ####[facility]ORATORYCLIA [id number] [address] HIGH SENSITIVITY TROPONIN To n 06-14-2021 [...] day MACE. Performed By: #### H STNT ####[facility]ORATORYCLIA [id number] [address] HIGH SENSITIVITY TAMIKO 22 ng/L High [...] Performed By: #### 2 4323-8, HSTNT, 2776-05, ####[facility]ORATORYCLIA [id number] [address] Magnesium SerPl-mCncon 06-14 Magnesium [Mass/Vol] 2.9 mg/dL High 1.7-2.3 [facility] Comment on above: Order Comment: Speci men Type: BLOOD SPECIMEN Performed By: #### 2 4323-8, HSTNT, 2776-05, ####[facility]ORATORYCLIA [id number] [address] Magnesium [Mass/Vol] 3.0 mg/dL High 1.7-2.3 [facility] Comment on above: Order Comment: Speci men Type: BLOOD SPECIMEN Performed By: #### 2 4321-2, 2776-05, ####[facility]ORATORYCLIA [id number] [address] NURSING PROGon 06-14-2021 NURSING PROG Normal [facility] NUTRITIONon 06-14-2021 NUTRITION Normal [facility] Phosphate SerPl-mCncon 06-14 Phosphate [Mass/Vol] 2.4 mg/dL Low 2.7-4.8 [facility] Comment on above: Order Comment: Speci men Type: BLOOD SPECIMEN Performed By: #### 2 4323-8, HSTNT, 2776-05, ####[facility]ORATORYCLIA [id number] [address] Phosphate [Mass/Vol] 3.2 mg/dL Normal 2.7-4.8 [facility] Comment on above: Order Comment: Speci men Type: BLOOD SPECIMEN Performed By: #### 2 4321-2, 2776-05, ####[facility]ORATORYCLIA [id number] [place] [address] [place] THERAPY NTon 06-14-2021 [...] 4321-2, , 2776-05 ####[facility]ORATORYCLIA [id number] [place] [address] [place] Calcium [Mass/Vol] 8.8 mg/dL Normal 8.5-10.2 [facility] Comment on above: Order Comment: Speci men Type: BLOOD SPECIMEN Performed By: #### 2 4321-2, , 2776-05 ####[facility]ORATORYCLIA [id number] [place] [address] [place] Chloride [Moles/Vol] 120 mmol/L High 97-105 [facility] Comment on above: Order Comment: Speci men Type: BLOOD SPECIMEN Performed By: #### 2 4321-2, , 2776-05 ####[facility]ORATORYCLIA [id number] [place] [address] [place] CO2 [Moles/Vol] 28 mmol/L Normal 22-30 [facility] Comment on above: Order Comment: Speci men Type: BLOOD SPECIMEN Performed By: #### 2 4321-2, , 2776-05 ####[facility]ORATORYCLIA [id number] [place] [address] [place] Creatinine [Mass/Vol] 0.78 mg/dL Normal 0.73-1.22 [facility] Comment on above: Order Comment: Speci men Type: BLOOD SPECIMEN Performed By: #### 2 4321-2, 15490-0, 2776-05 ####[facility]ORATORYCLIA [id number] [place] [address] [place] GFR/1.73 sq M.predicted [...] By: #### 2 4321-2, , 2776-05 ####[facility] [id number] [place] [address] [place] Glucose [Mass/Vol] 126 mg/dL High 74-99 [facility] Comment on above: Order Comment: Shira feldman Type: BLOOD SPECIMEN Result Comment: The [place] [employer] (ADA) provides guidance for cutoff [...] Standards of Medical Care in Diabetes 2016, [place] [employer]. Diabetes Care. 2016.39(Suppl 1). Performed By: #### 2 4321-2, 67354-5, 2776- ####[facility]ORATORYCLIA [id number] [place] [address] [place] Potassium [Moles/Vol] 3.6 mmol/L Low 3.7-5.1 [facility] Comment on above: Order Comment: Speci men Type: BLOOD SPECIMEN Performed By: #### 2 4321-2, , 2776-05 ####[facility]ORATORYCLIA [id number] [place] [address] [place] Sodium [Moles/Vol] 155 mmol/L High 136-144 [facility] Comment on above: Order Comment: Speci men Type: BLOOD SPECIMEN Performed By: #### 2 4321-2, , 2776-05 ####[facility]ORATORYCLIA [id number] [place] [address] [place] Urea nitrogen [Mass/Vol] 36 mg/dL High 9-24 [facility] Comment on above: Order Comment: Speci men Type: BLOOD SPECIMEN Performed By: #### 2 4321-2, , 2776-05 ####[facility]ORATORYCLIA [id number] [place], [place] [id number] [place] [address] [place] Anion gap [Moles/Vol] 6 mmol/L Low 9-18 [facility] Comment on above: Order Comment: Speci men Type: BLOOD SPECIMEN Performed By: #### 2 4321-2, 2776-05, ####[facility]ATORYCLIA [id number] [place] [address] [place] Calcium [Mass/Vol] 6.5 mg/dL Low 8.5-10.2 [facility] Comment on above: Order Comment: Speci men Type: BLOOD SPECIMEN Performed By: #### 2 4321-2, 2776-05, ####[facility]ATORYCLIA [id number] [place] [address] [place] Chloride [Moles/Vol] 124 mmol/L High 97-105 [facility] Comment on above: Order Comment: Speci men Type: BLOOD SPECIMEN Performed By: #### 2 4321-2, 2776-05, ####[facility]ORATORYCLIA [id number] [place], [place] [address] [place] [address] [place] CO2 [Moles/Vol] 24 mmol/L Normal 22-30 [facility] Comment on above: Order Comment: Speci men Type: BLOOD SPECIMEN Performed By: #### 2 4321-2, 2776-05, ####[facility]ORATORYCLIA [id number] [address] [place] Creatinine [Mass/Vol] 0.61 mg/dL Low 0.73-1.22 [facility] Comment on above: Order Comment: Speci men Type: BLOOD SPECIMEN Performed By: #### 2 4321-2, 2776-05, ####[facility]ORATORYCLIA [id number] [address] [place] GFR/1.73 sq M.predicted [...] GFR. Performed By: #### 2 4321-2, 2776-05, ####[facility]ORATORYCLIA [id number] [place] [address] [place] Glucose [Mass/Vol] 100 mg/dL High 74-99 [facility] Comment on above: Order Comment: Speci men Type: BLOOD SPECIMEN Result Comment: The [place] [employer] (ADA) provides guidance for cutoff [...] Standards of Medical Care in Diabetes 2016, [place] [employer]. Diabetes Care. 2016.39(Suppl 1). Performed By: #### 2 4321-2, 2776-05, ####[facility] LABORATORYCLIA [id number] [address] [place] [facility] Potassium [Moles/Vol] 2.7 mmol/L Low 3.7-5.1 [facility] Comment on above: Order Comment: Speci men Type: BLOOD SPECIMEN Performed By: #### 2 4321-2, 2776-05, ####[facility] LABORATORYCLIA [id number] [address] [place] [facility] Sodium [Moles/Vol] 154 mmol/L High 136-144 [facility] Comment on above: Order Comment: Speci men Type: BLOOD SPECIMEN Performed By: #### 2 4321-2, 2776-05, ####[facility]ORATORYCLIA [id number] [address] [place] Urea nitrogen [Mass/Vol] 29 mg/dL High 9-24 [facility] Comment on above: Order Comment: Speci men Type: BLOOD SPECIMEN Performed By: #### 2 4321-2, 2776-05, ####[facility]ORATORYCLIA [id number] [address] [place] CASE MANAGEMon 06-13-2021 CASE MANAGEM Normal [facility] CBC panel Auto (Bld)on 06-13 Erythrocyte distribution width (RBC) [Ratio] 15.9 % High 11.5-15.0 [facility] Comment on above: Order Comment: Speci men Type: BLOOD SPECIMEN Performed By: #### 5 8410-2 ####[facility]ORATORYCLIA [id number] [address] Hematocrit (Bld) [Volume fraction] 34.3 % Low 39.0-51.0 [facility] Comment on above: Order Comment: Speci men Type: BLOOD SPECIMEN Performed By: #### 5 8410-2 ####[facility]ORATORYCLIA [id number] [address] Hemoglobin (Bld) [Mass/Vol] 9.9 g/dL Low 13.0-17.0 [facility] Comment on above: Order Comment: Speci men Type: BLOOD SPECIMEN Performed By: #### 5 8410-2 ####[facility]ORATORYCLIA [id number] [address] MCH (RBC) [Entitic mass] 27.3 pg Normal 26.0-34.0 [facility] Comment on above: Order Comment: Speci men Type: BLOOD SPECIMEN Performed By: #### 5 8410-2 ####[facility]ORATORYCLIA [id number] [address] MCHC (RBC) [Mass/Vol] 28.9 g/dL Low 30.5-36.0 [facility] Comment on above: Order Comment: Speci men Type: BLOOD SPECIMEN Performed By: #### 5 8410-2 ####[facility]ORATORYCLIA [id number] [address] MCV (RBC) [Entitic vol] 94.5 fL Normal 80.0-100.0 [facility] Comment on above: Order Comment: Speci men Type: BLOOD SPECIMEN Performed By: #### 5 8410-2 ####[facility]ORATORYCLIA [id number] [address] Nucleated RBC (Bld) [#/Vol] 10*3/uL Normal <0.01 [facility] Comment on above: Order Comment: Speci men Type: BLOOD SPECIMEN Performed By: #### 5 8410-2 ####[facility]ORATORYCLIA [id number] [address] Platelet mean volume (Bld) [Entitic vol] 11.3 fL Normal 9.0-12.7 [facility] Comment on above: Order Comment: Speci men Type: BLOOD SPECIMEN Performed By: #### 5 8410-2 ####[facility]ORATORYCLIA [id number] [address] [place] [facility] Platelets (Bld) [#/Vol] 269 10*3/uL Normal 150-400 [facility] Comment on above: Order Comment: Speci men Type: BLOOD SPECIMEN Performed By: #### 5 8410-2 ####[facility]ORATORYCLIA [id number] [address] OF [facility] RBC (Bld) [#/Vol] 3.63 10*6/uL Low 4.20-6.00 [facility] Comment on above: Order Comment: Speci men Type: BLOOD SPECIMEN Performed By: #### 5 8410-2 ####[facility]ORATORYCLIA [id number] [address] OF [facility] WBC (Bld) [#/Vol] 12.77 10*3/uL High 3.70-11.00 [facility] Comment on above: Order Comment: Speci men Type: BLOOD SPECIMEN Performed By: #### 5 8410-2 ####[facility]ORATORYCLIA [id number] [address] Gas and Carbon monoxide pane l (BldV)on 06-13-2021 Base excess Calc (BldV) [Moles/Vol] 5.7 mmol/L High 0-2 [facility] Comment on above: Order Comment: Speci men Type: VENOUS BLOOD SPECIMEN Performed By: #### 2 4344-4 ####[facility]ORATORYCLIA [id number] [address] Body temperature 99.5 [degF] Normal [facility] Comment on above: Order Comment: Speci men Type: VENOUS BLOOD SPECIMEN Performed By: #### 2 4344-4 ####[facility]ORATORYCLIA [id number] [address] CALCIUM IONIZED, PH CORRECTED 1.24 mmol/L Normal 1.08-1.30 [facility] Comment on above: Order Comment: Speci men Type: VENOUS BLOOD SPECIMEN Performed By: #### 2 4344-4 ####[facility]ATORYCLIA [id number] [address] Calcium.ionized (BldV) [Mass/Vol] 1.23 mmol/L Normal 1.08-1.30 [facility] Comment on above: Order Comment: Speci men Type: VENOUS BLOOD SPECIMEN Performed By: #### 2 4344-4 ####[facility]ORATORYCLIA [id number] [address] Carboxyhemoglobin (BldV) [Mass fraction] 1.2 % Normal 0.0-2.0 [facility] Comment on above: Order Comment: Speci men Type: VENOUS BLOOD SPECIMEN Result Comment: Carb oxyhemoglobin Reference Range for Smokers: 2.0-8.0% Performed By: #### 2 4344-4 ####[facility]ATORYCLIA [id number] [address] CO2 (BldV) [Partial pressure] 48 mm[Hg] Normal 42-55 [facility] Comment on above: Order Comment: Speci men Type: VENOUS BLOOD SPECIMEN Performed By: #### 2 4344-4 ####[facility]ORYCLIA [id number] [address] CO2 [Moles/Vol] 28.2 mmol/L Normal 25-29 [facility] Comment on above: Order Comment: Speci men Type: VENOUS BLOOD SPECIMEN Performed By: #### 2 4344-4 ####[facility]ATORYCLIA [id number] [address] CO2 adjusted to patient's actual temperature (BldV) [Partial pressure] 49 mmHg Normal 42-55 [facility] Comment on above: Order Comment: Speci men Type: VENOUS BLOOD SPECIMEN Performed By: #### 2 4344-4 ####[facility]ORYCLIA [id number] [address] Glucose [Mass/Vol] 131 mg/dL High 60-105 [facility] Comment on above: Order Comment: Speci men Type: VENOUS BLOOD SPECIMEN Performed By: #### 2 4344-4 ####[facility]ORYCLIA [id number] [address] HCO3 (Bld) [Moles/Vol] 30.6 mmol/L High 24-28 [facility] Comment on above: Order Comment: Speci men Type: VENOUS BLOOD SPECIMEN Performed By: #### 2 4344-4 ####[facility]ATORYCLIA [id number] [address] [place] Hematocrit (Bld) [Volume fraction] 32.8 % Low 39.0-51.0 [facility] Comment on above: Order Comment: Speci men Type: VENOUS BLOOD SPECIMEN Performed By: #### 2 4344-4 ####[facility]ORYCLIA [id number] [address] [place] Hemoglobin (Bld) [Mass/Vol] 10.6 g/dL Low 13.0-17.0 [facility] Comment on above: Order Comment: Speci men Type: VENOUS BLOOD SPECIMEN Performed By: #### 2 4344-4 ####[facility]ATORYCLIA [id number] [address] [place] LITERS 6 Liters/min Normal [facility] Comment on above: Order Comment: Speci men Type: VENOUS BLOOD SPECIMEN Performed By: #### 2 4344-4 ####[facility]ORY[facility]IA [id number] [place] [address] [facility] [place] Methemoglobin (Bld) [Mass fraction] 1.0 % Normal 0.0-1.5 [facility] Comment on above: Order Comment: Speci men Type: VENOUS BLOOD SPECIMEN Performed By: #### 2 4344-4 ####[facility]ORYCLIA [id number] [place] [address] [facility] O2 THERAPY NC = Nasal Cannula Normal [facility] Comment on above: Order Comment: Speci men Type: VENOUS BLOOD SPECIMEN Performed By: #### 2 4344-4 ####[facility]ATORYCLIA [id number] [place], [place] [id number] [place] [address] [place] Oxygen (BldV) [Partial pressure] 42 mm[Hg] Normal 35-45 [facility] Comment on above: Order Comment: Speci men Type: VENOUS BLOOD SPECIMEN Performed By: #### 2 4344-4 ####[facility]ORYCLIA [id number] [place], [place] [id number] [place] [address] Oxygen adjusted to patient's actual temperature (BldV) [Partial pressure] 43.8 mmHg Normal 35-45 [facility] Comment on above: Order Comment: Speci men Type: VENOUS BLOOD SPECIMEN Performed By: #### 2 4344-4 ####[facility]ORYCLIA [id number] [place], [place] [id number] [place] [address] [place] Oxygen saturation in Blood 76.7 % Normal 60-85 [facility] Comment on above: Order Comment: Speci men Type: VENOUS BLOOD SPECIMEN Performed By: #### 2 4344-4 ####[facility]ORYCLIA [id number] [place], [place] [id number] [place] [address] [place] Oxyhemoglobin (BldV) [Mass fraction] 75 % Normal 60-85 [facility] Comment on above: Order Comment: Speci men Type: VENOUS BLOOD SPECIMEN Performed By: #### 2 4344-4 ####[facility]ORYCLIA [id number] [place], [place] [address] [place] [address] [place] pH (BldV) 7.42 [pH] Normal 7.32-7.42 [facility] Comment on above: Order Comment: Speci men Type: VENOUS BLOOD SPECIMEN Performed By: #### 2 4344-4 ####[facility] [id number] [address] pH adjusted to patient's actual temperature (BldV) 7.41 Normal 7.32-7.42 [facility] Comment on above: Order Comment: Speci men Type: VENOUS BLOOD SPECIMEN Performed By: #### 2 4344-4 ####[facility]ORYCL[facility] [id number] [address] Potassium [Moles/Vol] 3.5 mmol/L Normal 3.5-5.0 [facility] Comment on above: Order Comment: Speci men Type: VENOUS BLOOD SPECIMEN Performed By: #### 2 4344-4 ####[facility] [id number] [address] Sodium [Moles/Vol] 157 mmol/L High 136-144 [facility] Comment on above: Order Comment: Speci men Type: VENOUS BLOOD SPECIMEN Performed By: #### 2 4344-4 ####[facility] [id number] [address] Magnesium SerPl-mCncon 06-13 Magnesium [Mass/Vol] 3.0 mg/dL High 1.7-2.3 [facility] Comment on above: Order Comment: Speci men Type: BLOOD SPECIMEN Performed By: #### 2 4321-2, , 2776-05 ####[facility]ORYCLIA [id number] [address] Magnesium [Mass/Vol] 2.2 mg/dL Normal 1.7-2.3 [facility] Comment on above: Order Comment: Speci men Type: BLOOD SPECIMEN Performed By: #### 2 4321-2, 2776-, ####[facility]ORYCLIA [id number] [place] [address] [place] Phosphate SerPl-mCncon 06-13 Phosphate [Mass/Vol] 2.2 mg/dL Low 2.7-4.8 [facility] Comment on above: Order Comment: Speci men Type: BLOOD SPECIMEN Performed By: #### 2 4321-2, , 2776-05 ####[facility]ATORYCLIA [id number] [address] STATES OF [facility] Phosphate [Mass/Vol] 1.8 mg/dL Low 2.7-4.8 [facility] Comment on above: Order Comment: Speci men Type: BLOOD SPECIMEN Performed By: #### 2 4321-2, 2776-05, ####[facility]ATORYCLIA [id number] [address] STATES OF [facility] XR CHEST 1V FRONTALon 2021 XR [...] on above: Performed By: #### 6 11-4 ####[facility]ATORYCLIA [id number] [address] [place] Basic metabolic 2000 panelon 06-12-2021 Anion gap [Moles/Vol] 6 mmol/L Low 9-18 [facility] Comment on above: Order Comment: Speci men Type: BLOOD SPECIMEN Performed By: #### 2 777-1, 66522-6, ####[facility]ORYCLIA [id number] [address] [place] Calcium [Mass/Vol] 8.7 mg/dL Normal 8.5-10.2 [facility] Comment on above: Order Comment: Speci men Type: BLOOD SPECIMEN Performed By: #### 2 777-1, 42044-3, ####[facility]ATORYCLIA [id number] [address] Chloride [Moles/Vol] 118 mmol/L High 97-105 [facility] Comment on above: Order Comment: Speci men Type: BLOOD SPECIMEN Performed By: #### 2 777-1, 77128-6, ####[facility]ATORYCLIA [id number] [address] CO2 [Moles/Vol] 28 mmol/L Normal 22-30 [facility] Comment on above: Order Comment: Speci men Type: BLOOD SPECIMEN Performed By: #### 2 777-1, , ####[facility]ORYCLIA [id number] [address] STATES [facility] Creatinine [Mass/Vol] 0.77 mg/dL Normal 0.73-1.22 [facility] Comment on above: Order Comment: Speci men Type: BLOOD SPECIMEN Performed By: #### 2 777-1, , ####[facility]ATORYCLIA [id number] [address] GFR/1.73 sq M.predicted MDRD (S/P/Bld) [Vol [...] actual GFR. Performed By: #### 2 777-1, 32016-2, ####[facility]ATORYCLIA [id number] [place] [address] [place] Glucose [Mass/Vol] 116 mg/dL High 74-99 [facility] Comment on above: Order Comment: Speci men Type: BLOOD SPECIMEN Result Comment: The [place] [employer] (ADA) provides guidance for cutoff [...] Standards of Medical Care in Diabetes 2016, [place] [employer]. Diabetes Care. 2016.39(Suppl 1). Performed By: #### 2 777-1, , ####[facility]ORATORYCLIA [id number] [place] [address] [place] Potassium [Moles/Vol] 4.0 mmol/L Normal 3.7-5.1 [facility] Comment on above: Order Comment: Speci men Type: BLOOD SPECIMEN Performed By: #### 2 777-1, , ####[facility]ATORYCLIA [id number] [place] [address] [place] Sodium [Moles/Vol] 152 mmol/L High 136-144 [facility] Comment on above: Order Comment: Speci men Type: BLOOD SPECIMEN Performed By: #### 2 777-1, , ####[facility]ATORYCLIA [id number] [place] [address] [place] Urea nitrogen [Mass/Vol] 34 mg/dL High 9-24 [facility] Comment on above: Order Comment: Speci men Type: BLOOD SPECIMEN Performed By: #### 2 777-1, 10969-4, 45612-2 ####[facility]ATORYCLIA [id number] [address] CBC panel Auto (Bld)on 06-12 Erythrocyte distribution width (RBC) [Ratio] 16.1 % High 11.5-15.0 [facility] Comment on above: Order Comment: Speci men Type: BLOOD SPECIMEN Performed By: #### 5 8410-2 ####[facility]ATORYCLIA [id number] [address] Hematocrit (Bld) [Volume fraction] 32.8 % Low 39.0-51.0 [facility] Comment on above: Order Comment: Speci men Type: BLOOD SPECIMEN Performed By: #### 5 8410-2 ####[facility]ATORYCLIA [id number] [address] Hemoglobin (Bld) [Mass/Vol] 9.9 g/dL Low 13.0-17.0 [facility] Comment on above: Order Comment: Speci men Type: BLOOD SPECIMEN Performed By: #### 5 8410-2 ####[facility]ATORYCLIA [id number] [address] MCH (RBC) [Entitic mass] 28.4 pg Normal 26.0-34.0 [facility] Comment on above: Order Comment: Speci men Type: BLOOD SPECIMEN Performed By: #### 5 8410-2 ####[facility]ORYCLIA [id number] [address] MCHC (RBC) [Mass/Vol] 30.2 g/dL Low 30.5-36.0 [facility] Comment on above: Order Comment: Speci men Type: BLOOD SPECIMEN Performed By: #### 5 8410-2 ####[facility]ATORYCLIA [id number] [address] MCV (RBC) [Entitic vol] 94.3 fL Normal 80.0-100.0 [facility] Comment on above: Order Comment: Speci men Type: BLOOD SPECIMEN Performed By: #### 5 8410-2 ####[facility]ATORYCLIA [id number] [address] Nucleated RBC (Bld) [#/Vol] 10*3/uL Normal <0.01 [facility] Comment on above: Order Comment: Speci men Type: BLOOD SPECIMEN Performed By: #### 5 8410-2 ####[facility]ATORYCLIA [id number] [address] Platelet mean volume (Bld) [Entitic vol] 11.2 fL Normal 9.0-12.7 [facility] Comment on above: Order Comment: Speci men Type: BLOOD SPECIMEN Performed By: #### 5 8410-2 ####[facility]ATORYCLIA [id number] [address] Platelets (Bld) [#/Vol] 218 10*3/uL Normal 150-400 [facility] Comment on above: Order Comment: Speci men Type: BLOOD SPECIMEN Performed By: #### 5 8410-2 ####[facility]ORYCLIA [id number] [address] RBC (Bld) [#/Vol] 3.48 10*6/uL Low 4.20-6.00 [facility] Comment on above: Order Comment: Speci men Type: BLOOD SPECIMEN Performed By: #### 5 8410-2 ####[facility]ATORYCLIA [id number] [address] OF [facility] WBC (Bld) [#/Vol] 13.33 10*3/uL High 3.70-11.00 [facility] Comment on above: Order Comment: Speci men Type: BLOOD SPECIMEN Performed By: #### 5 8410-2 ####[facility]ORATORYCLIA [id number] [address] OF [facility] CONSULT PROGon 06-12-2021 CONSULT PROG Normal [facility] CT DRN PLACE PERIT/RETROP [place] BIon 06-12-[address] PERIT/RETROP FL BI Normal [facility] HISTORY PHYSICALon 2 HISTORY PHYSICAL Normal [facility] Magnesium SerPl-mCncon 06-12 Magnesium [Mass/Vol] 2.7 mg/dL High 1.7-2.3 [facility] Comment on above: Order Comment: Speci men Type: BLOOD SPECIMEN Performed By: #### 2 777-1, 58272-3, 45057-0 ####[facility]ATORYCLIA [id number] [place] [address] [place] PT panel Coag (PPP)on 2021 INR Coag (PPP) [Relative time] 1.1 {INR} Normal 0.9-1.3 [facility] Comment on above: Order Comment: Speci men Type: BLOOD SPECIMEN Result Comment: Yris min K Antagonist (VKA) Therapeutic Range: INR 2 to 3 (Target INR of 2.5)Note: For patients treated with VKA drugs, such as warfarin, the [place] [employer] 2012 Guideline recommends [...] 70: 252-289 Performed By: #### 3 4528-0 ####[facility]ATORYCLIA [id number] [place] [address] [place] PT Coag (PPP) [Time] 11.9 s Normal 9.7-13.0 [facility] Comment on above: Order Comment: Speci men Type: BLOOD SPECIMEN Performed By: #### 3 4528-0 ####[facility]ATORYCLIA [id number] [address] Phosphate SerPl-mCncon 06-12 Phosphate [Mass/Vol] 2.2 mg/dL Low 2.7-4.8 [facility] Comment on above: Order Comment: Speci men Type: BLOOD SPECIMEN Performed By: #### 2 777-1, 98455-9, 51010-1 ####[facility]ATORYCLIA [id number] [address] OF [facility] XR ABDOMEN 1V SUPINEon 06-12 XR ABDOMEN 1V SUPINE Normal [facility] ALLIED HEALTHon 06-11-2021 ALLIED HEALTH Normal [facility] Bacteria Bld Culton 06-11-19 22 Bacteria identified Cx Nom (Bld) CULTURE, BLOOD: No growth 5 days Normal [facility] Comment on above: Performed By: #### 6 00-7 ####[facility]ATORYCLIA [id number] [address] Bacteria identified Cx Nom (Bld) CULTURE, BLOOD: No growth 5 days Normal [facility] Comment on above: Performed By: #### 6 00-7 ####[facility]ATORYCLIA [id number] [address] Bacteria Ur Culton 2 Bacteria identified Cx Nom (U) CULTURE, URINE: No growth (<1,000 CFU/ml) [facility] Comment on above: Performed By: #### 6 30-4 ####[facility]ORYCLIA [id number] [address] Basic metabolic 2000 panelon 06-11-2021 Anion gap [Moles/Vol] 9 mmol/L Normal 9-18 [facility] Comment on above: Order Comment: Speci men Type: BLOOD SPECIMEN Performed By: #### 1 9123-9, 2777-1, 88962-2 ####[facility]ORYCLIA [id number] [address] STATES OF [facility] Calcium [Mass/Vol] 8.5 mg/dL Normal 8.5-10.2 [facility] Comment on above: Order Comment: Speci men Type: BLOOD SPECIMEN Performed By: #### 1 9123-9, 2777-1, 80312-2 ####[facility]ORYCLIA [id number] [address] [place] Chloride [Moles/Vol] 118 mmol/L High 97-105 [facility] Comment on above: Order Comment: Speci men Type: BLOOD SPECIMEN Performed By: #### 1 9123-9, 277-, 40060-4 ####[facility]ORYCLIA [id number] [address] CO2 [Moles/Vol] 27 mmol/L Normal 22-30 [facility] Comment on above: Order Comment: Speci men Type: BLOOD SPECIMEN Performed By: #### 1 9123-9, 2777-1, 45815-1 ####[facility]ATORYCLIA [id number] [address] STATES [facility] Creatinine [Mass/Vol] 0.75 mg/dL Normal 0.73-1.22 [facility] Comment on above: Order Comment: Speci men Type: BLOOD SPECIMEN Performed By: #### 1 9123-9, 2777-1, 13827-4 ####[facility]ORYCLIA [id number] [address] [place] GFR/1.73 sq M.predicted [...] GFR. Performed By: #### 1 9123-9, 7-, 64402-9 ####[facility]ORYCLIA [id number] [address] [place] Glucose [Mass/Vol] 142 mg/dL High 74-99 [facility] Comment on above: Order Comment: Speci men Type: BLOOD SPECIMEN Result Comment: The [place] [employer] (ADA) provides guidance for cutoff [...] Standards of Medical Care in Diabetes 2016, [place] [employer]. Diabetes Care. 2016.39(Suppl 1). Performed By: #### 1 9123-9, 2776-05, 15658-3 ####[facility]ATORYCLIA [id number] [place] [address] [place] Potassium [Moles/Vol] 3.6 mmol/L Low 3.7-5.1 [facility] Comment on above: Order Comment: Speci men Type: BLOOD SPECIMEN Performed By: #### 1 9123-9, 27711-04, 38671-1 ####[facility]ATORYCLIA [id number] [address] [place] Sodium [Moles/Vol] 154 mmol/L High 136-144 [facility] Comment on above: Order Comment: Speci men Type: BLOOD SPECIMEN Performed By: #### 1 9123-9, 27711-04, 70012-4 ####[facility]ORYCLIA [id number] [address] Urea nitrogen [Mass/Vol] 31 mg/dL High 9-24 [facility] Comment on above: Order Comment: Speci men Type: BLOOD SPECIMEN Performed By: #### 1 9123-9, 2777-1, 87933-9 ####[facility]ATORYCLIA [id number] [address] C diff Tox gens Stl Ql MEGAN+p robeon 06-11-2021 C. difficile toxin genes MEGAN+probe Ql (Stl) Negative Normal Negative for C. difficile toxin by PCR [facility] Comment on above: Order Comment: Speci men Type: STOOL SPECIMEN Performed By: #### 5 4067-4 ####[facility]ATORYCLIA [id number] [address] CBC W Auto Differential pane l (Bld)on 06-11-2021 Basophils (Bld) [#/Vol] 0.03 10*3/uL Normal <0.11 [facility] Comment on above: Order Comment: Speci men Type: BLOOD SPECIMEN Performed By: #### 5 7021-8 ####[facility]ATORYCLIA [id number] [address] Basophils/100 WBC (Bld) 0.2 % Normal [facility] Comment on above: Order Comment: Speci men Type: BLOOD SPECIMEN Performed By: #### 5 7021-8 ####[facility]ATORYCLIA [id number] [address] Differential cell count method Nom (Bld) Auto Normal [facility] Comment on above: Order Comment: Speci men Type: BLOOD SPECIMEN Performed By: #### 5 7021-8 ####[facility]ATORYCLIA [id number] [address] STATES [facility] Eosinophils (Bld) [#/Vol] 0.19 10*3/uL Normal <0.46 [facility] Comment on above: Order Comment: Speci men Type: BLOOD SPECIMEN Performed By: #### 5 7021-8 ####[facility]ATORYCLIA [id number] [address] Eosinophils/100 WBC (Bld) 1.5 % Normal [facility] Comment on above: Order Comment: Speci men Type: BLOOD SPECIMEN Performed By: #### 5 7021-8 ####[facility]ORYCLIA [id number] [address] Erythrocyte distribution width (RBC) [Ratio] 16.3 % High 11.5-15.0 [facility] Comment on above: Order Comment: Speci men Type: BLOOD SPECIMEN Performed By: #### 5 7021-8 ####[facility]ORYCLIA [id number] [address] Hematocrit (Bld) [Volume fraction] 32.1 % Low 39.0-51.0 [facility] Comment on above: Order Comment: Speci men Type: BLOOD SPECIMEN Performed By: #### 5 7021-8 ####[facility]ORYCLIA [id number] [address] Hemoglobin (Bld) [Mass/Vol] 9.3 g/dL Low 13.0-17.0 [facility] Comment on above: Order Comment: Speci men Type: BLOOD SPECIMEN Performed By: #### 5 7021-8 ####[facility]ATORYCLIA [id number] [address] IMMATURE GRAN % 0.6 % Normal [facility] Comment on above: Order Comment: Speci men Type: BLOOD SPECIMEN Performed By: #### 5 7021-8 ####[facility]ATORYCLIA [id number] [address] IMMATURE GRAN ABS 0.08 k/uL Normal <0.10 [facility] Comment on above: Order Comment: Speci men Type: BLOOD SPECIMEN Performed By: #### 5 7021-8 ####[facility]ORYCLIA [id number] [address] Lymphocytes (Bld) [#/Vol] 1.65 10*3/uL Normal 1.00-4.00 [facility] Comment on above: Order Comment: Speci men Type: BLOOD SPECIMEN Performed By: #### 5 7021-8 ####[facility]ATORYCLIA [id number] [address] Lymphocytes/100 WBC (Bld) 12.8 % Normal [facility] Comment on above: Order Comment: Speci men Type: BLOOD SPECIMEN Performed By: #### 5 7021-8 ####[facility]ATORYCLIA [id number] [address] MCH (RBC) [Entitic mass] 27.2 pg Normal 26.0-34.0 [facility] Comment on above: Order Comment: Speci men Type: BLOOD SPECIMEN Performed By: #### 5 7021-8 ####[facility]ATORYCLIA [id number] [address] MCHC (RBC) [Mass/Vol] 29.0 g/dL Low 30.5-36.0 [facility] Comment on above: Order Comment: Speci men Type: BLOOD SPECIMEN Performed By: #### 5 7021-8 ####[facility]ORYCLIA [id number] [address] MCV (RBC) [Entitic vol] 93.9 fL Normal 80.0-100.0 [facility] Comment on above: Order Comment: Speci men Type: BLOOD SPECIMEN Performed By: #### 5 7021-8 ####[facility]ATORYCLIA [id number] [address] Monocytes (Bld) [#/Vol] 0.68 10*3/uL Normal <0.87 [facility] Comment on above: Order Comment: Speci men Type: BLOOD SPECIMEN Performed By: #### 5 7021-8 ####[facility]ORATORYCLIA [id number] [place] [address] Monocytes/100 WBC (Bld) 5.3 % Normal [facility] Comment on above: Order Comment: Speci men Type: BLOOD SPECIMEN Performed By: #### 5 7021-8 ####[facility]ORATORYCLIA [id number] [address] Neutrophils (Bld) [#/Vol] 10.22 10*3/uL High 1.45-7.50 [facility] Comment on above: Order Comment: Speci men Type: BLOOD SPECIMEN Performed By: #### 5 7021-8 ####[facility]ATORYCLIA [id number] [address] Neutrophils/100 WBC (Bld) 79.6 % Normal [facility] Comment on above: Order Comment: Speci men Type: BLOOD SPECIMEN Performed By: #### 5 7021-8 ####[facility]ATORYCLIA [id number] [address] Nucleated RBC (Bld) [#/Vol] 10*3/uL Normal <0.01 [facility] Comment on above: Order Comment: Speci men Type: BLOOD SPECIMEN Performed By: #### 5 7021-8 ####[facility]ATORYCLIA [id number] [address] Nucleated RBC/100 WBC (Bld) [Ratio] 0.0 /100 WBC Normal 0.0 [facility] Comment on above: Order Comment: Speci men Type: BLOOD SPECIMEN Performed By: #### 5 7021-8 ####[facility] LABORATORYCLIA [id number] [address] Platelet mean volume (Bld) [Entitic vol] 11.1 fL Normal 9.0-12.7 [facility] Comment on above: Order Comment: Speci men Type: BLOOD SPECIMEN Performed By: #### 5 7021-8 ####[facility]ATORYCLIA [id number] [address] Platelets (Bld) [#/Vol] 188 10*3/uL Normal 150-400 [facility] Comment on above: Order Comment: Speci men Type: BLOOD SPECIMEN Performed By: #### 5 7021-8 ####[facility]ATORYCLIA [id number] [address] RBC (Bld) [#/Vol] 3.42 10*6/uL Low 4.20-6.00 [facility] Comment on above: Order Comment: Speci men Type: BLOOD SPECIMEN Performed By: #### 5 7021-8 ####[facility]ATORYCLIA [id number] [address] WBC (Bld) [#/Vol] 12.85 10*3/uL High 3.70-11.00 [facility] Comment on above: Order Comment: Speci men Type: BLOOD SPECIMEN Performed By: #### 5 7021-8 ####[facility]ATORYCLIA [id number] [address] CBC panel Auto (Bld)on 06-11 Erythrocyte distribution width (RBC) [Ratio] 16.2 % High 11.5-15.0 [facility] Comment on above: Order Comment: Speci men Type: BLOOD SPECIMEN Performed By: #### 5 8410-2 ####[facility]ATORYCLIA [id number] [address] Hematocrit (Bld) [Volume fraction] 34.5 % Low 39.0-51.0 [facility] Comment on above: Order Comment: Speci men Type: BLOOD SPECIMEN Performed By: #### 5 8410-2 ####[facility]ATORYCLIA [id number] [address] Hemoglobin (Bld) [Mass/Vol] 10.3 g/dL Low 13.0-17.0 [facility] Comment on above: Order Comment: Speci men Type: BLOOD SPECIMEN Performed By: #### 5 8410-2 ####[facility]ATORYCLIA [id number] [address] MCH (RBC) [Entitic mass] 28.1 pg Normal 26.0-34.0 [facility] Comment on above: Order Comment: Speci men Type: BLOOD SPECIMEN Performed By: #### 5 8410-2 ####[facility]ATORYCLIA [id number] [address] MCHC (RBC) [Mass/Vol] 29.9 g/dL Low 30.5-36.0 [facility] Comment on above: Order Comment: Speci men Type: BLOOD SPECIMEN Performed By: #### 5 8410-2 ####[facility]ATORYCLIA [id number] [address] MCV (RBC) [Entitic vol] 94.3 fL Normal 80.0-100.0 [facility] Comment on above: Order Comment: Speci men Type: BLOOD SPECIMEN Performed By: #### 5 8410-2 ####[facility]ATORYCLIA [id number] [address] Nucleated RBC (Bld) [#/Vol] 10*3/uL Normal <0.01 [facility] Comment on above: Order Comment: Speci men Type: BLOOD SPECIMEN Performed By: #### 5 8410-2 ####[facility]ATORYCLIA [id number] [address] Platelet mean volume (Bld) [Entitic vol] 10.9 fL Normal 9.0-12.7 [facility] Comment on above: Order Comment: Speci men Type: BLOOD SPECIMEN Performed By: #### 5 8410-2 ####[facility] LABORATORYCLIA [id number] [address] Platelets (Bld) [#/Vol] 210 10*3/uL Normal 150-400 [facility] Comment on above: Order Comment: Speci men Type: BLOOD SPECIMEN Performed By: #### 5 8410-2 ####[facility]ORATORYCLIA [id number] [address] RBC (Bld) [#/Vol] 3.66 10*6/uL Low 4.20-6.00 [facility] Comment on above: Order Comment: Speci men Type: BLOOD SPECIMEN Performed By: #### 5 8410-2 ####[facility]ORATORYCLIA [id number] [address] WBC (Bld) [#/Vol] 13.03 10*3/uL High 3.70-11.00 [facility] Comment on above: Order Comment: Speci men Type: BLOOD SPECIMEN Performed By: #### 5 8410-2 ####[facility]ORATORYCLIA [id number] [address] CONSULT PROGon 06-11-2021 CONSULT PROG Normal [...] SPECIMEN Performed By: #### 1 9123-9, 2777-1, 19469-9 ####[facility]ORATORYCLIA [id number] [address] Phosphate SerPl-mCncon 06-11 Phosphate [Mass/Vol] 2.5 mg/dL Low 2.7-4.8 [facility] Comment on above: Order Comment: Speci men Type: BLOOD SPECIMEN Performed By: #### 1 9123-9, 2777-1, 99567-5 ####[facility]ORATORYCLIA [id number] [address] [facility] Basic metabolic 2000 panelon 06-10-2021 Anion gap [Moles/Vol] 7 mmol/L Low 9-18 [facility] Comment on above: Order Comment: Speci men Type: BLOOD SPECIMEN Performed By: #### 2 777-1, 92395-9, , HFP ####[facility]ATORYCLIA [id number] [place], [place] [address] [place] [address] [place] [facility] Calcium [Mass/Vol] 8.5 mg/dL Normal 8.5-10.2 [facility] Comment on above: Order Comment: Speci men Type: BLOOD SPECIMEN Performed By: #### 2 777-1, 78455-3, , HFP ####[facility]ATORYCLIA [id number] [place], [place] [address] [place] [address] [place] Chloride [Moles/Vol] 118 mmol/L High 97-105 [facility] Comment on above: Order Comment: Speci men Type: BLOOD SPECIMEN Performed By: #### 2 777-1, 23273-4, , HFP ####[facility]ORATORYCLIA [id number] [address] [place] CO2 [Moles/Vol] 26 mmol/L Normal 22-30 [facility] Comment on above: Order Comment: Speci men Type: BLOOD SPECIMEN Performed By: #### 2 777-1, 42988-7, , HFP ####[facility]ORYCLIA [id number] [address] [place] Creatinine [Mass/Vol] 0.70 mg/dL Low 0.73-1.22 [facility] Comment on above: Order Comment: Speci men Type: BLOOD SPECIMEN Performed By: #### 2 777-1, 46503-7, , HFP ####[facility]ATORYCLIA [id number] [place] [address] [place] GFR/1.73 sq M.predicted [...] actual GFR. Performed By: #### 2 777-1, 98254-9, , [facility] ####[facility]ORATORYCLIA [id number] [place] [address] [place] Glucose [Mass/Vol] 135 mg/dL High 74-99 [facility] Comment on above: Order Comment: Speci men Type: BLOOD SPECIMEN Result Comment: The [place] Diabetes Association (ADA) provides guidance for cutoff [...] Standards of Medical Care in Diabetes 2016, [place] [employer]. Diabetes Care. 2016.39(Suppl 1). Performed By: #### 2 777-1, 29308-5, , [facility] ####[facility] LABORATORYIA [id number] [place] [address] [place] Potassium [Moles/Vol] 3.9 mmol/L Normal 3.7-5.1 [facility] Comment on above: Order Comment: Speci men Type: BLOOD SPECIMEN Performed By: #### 2 777-1, 59183-9, , [facility] ####[facility]ORATORYCLIA [id number] [place] [address] [place] Sodium [Moles/Vol] 151 mmol/L High 136-144 [facility] Comment on above: Order Comment: Speci men Type: BLOOD SPECIMEN Performed By: #### 2 777-1, 14909-5, , [facility] ####[facility]ORATORYCLIA [id number] [address] Urea nitrogen [Mass/Vol] 27 mg/dL High 9-24 [facility] Comment on above: Order Comment: Speci men Type: BLOOD SPECIMEN Performed By: #### 2 777-1, 80115-5, , [facility] ####[facility]ORATORYCLIA [id number] [address] CASE MANAGEMon 06-10-2021 CASE MANAGEM Normal [facility] CBC panel Auto (Bld)on 06-10 Erythrocyte distribution width (RBC) [Ratio] 16.2 % High 11.5-15.0 [facility] Comment on above: Order Comment: Speci men Type: BLOOD SPECIMEN Performed By: #### 5 8410-2 ####[facility]ATORYCLIA [id number] [address] Hematocrit (Bld) [Volume fraction] 34.8 % Low 39.0-51.0 [facility] Comment on above: Order Comment: Speci men Type: BLOOD SPECIMEN Performed By: #### 5 8410-2 ####[facility]ATORYCLIA [id number] [address] Hemoglobin (Bld) [Mass/Vol] 10.2 g/dL Low 13.0-17.0 [facility] Comment on above: Order Comment: Speci men Type: BLOOD SPECIMEN Performed By: #### 5 8410-2 ####[facility]ATORYCLIA [id number] [address] MCH (RBC) [Entitic mass] 27.1 pg Normal 26.0-34.0 [facility] Comment on above: Order Comment: Speci men Type: BLOOD SPECIMEN Performed By: #### 5 8410-2 ####[facility]ATORYCLIA [id number] [address] MCHC (RBC) [Mass/Vol] 29.3 g/dL Low 30.5-36.0 [facility] Comment on above: Order Comment: Speci men Type: BLOOD SPECIMEN Performed By: #### 5 8410-2 ####[facility]ATORYCLIA [id number] [address] MCV (RBC) [Entitic vol] 92.6 fL Normal 80.0-100.0 [facility] Comment on above: Order Comment: Speci men Type: BLOOD SPECIMEN Performed By: #### 5 8410-2 ####[facility]ATORYCLIA [id number] [address] Nucleated RBC (Bld) [#/Vol] 10*3/uL Normal <0.01 [facility] Comment on above: Order Comment: Speci men Type: BLOOD SPECIMEN Performed By: #### 5 8410-2 ####[facility]ATORYCLIA [id number] [address] Platelet mean volume (Bld) [Entitic vol] 10.4 fL Normal 9.0-12.7 [facility] Comment on above: Order Comment: Speci men Type: BLOOD SPECIMEN Performed By: #### 5 8410-2 ####[facility]ATORYCLIA [id number] [address] Platelets (Bld) [#/Vol] 206 10*3/uL Normal 150-400 [facility] Comment on above: Order Comment: Speci men Type: BLOOD SPECIMEN Performed By: #### 5 8410-2 ####[facility]ORYCLIA [id number] [address] RBC (Bld) [#/Vol] 3.76 10*6/uL Low 4.20-6.00 [facility] Comment on above: Order Comment: Speci men Type: BLOOD SPECIMEN Performed By: #### 5 8410-2 ####[facility]ATORYCLIA [id number] [place] [address] [facility] WBC (Bld) [#/Vol] 11.36 10*3/uL High 3.70-11.00 [facility] Comment on above: Order Comment: Speci men Type: BLOOD SPECIMEN Performed By: #### 5 8410-2 ####[facility]ORYCLIA [id number] [address] HEPATIC FUNCTION PNLon 06-10 Albumin [Mass/Vol] 3.1 g/dL Low 3.9-4.9 [facility] Comment on above: Order Comment: Speci men Type: BLOOD SPECIMEN Performed By: #### 2 777-1, 97127-9, , HFP ####[facility]ATORYCLIA [id number] [place], [place] [address] [place] [address] ALP [Catalytic activity/Vol] 73 U/L Normal 38-113 [facility] Comment on above: Order Comment: Speci men Type: BLOOD SPECIMEN Performed By: #### 2 777-1, 38075-1, , HFP ####[facility]ATORYCLIA [id number] [address] ALT With P-5'-P [Catalytic activity/Vol] 64 U/L High 10-54 [facility] Comment on above: Order Comment: Speci men Type: BLOOD SPECIMEN Performed By: #### 2 777-1, 47221-3, , HFP ####[facility]ATORYCLIA [id number] [place], [place] [address] [place] [address] AST With P-5'-P [Catalytic activity/Vol] 44 U/L High 14-40 [facility] Comment on above: Order Comment: Speci men Type: BLOOD SPECIMEN Performed By: #### 2 777-1, 28110-6, , HFP ####[facility]ATORYCLIA [id number] [facility] [address] Bilirubin [Mass/Vol] 0.5 mg/dL Normal 0.2-1.3 [facility] Comment on above: Order Comment: Speci men Type: BLOOD SPECIMEN Performed By: #### 2 777-1, 17865-0, , [facility] ####[facility]ORATORYCLIA [id number] [address] Bilirubin.conjugated [Mass/Vol] mg/dL Normal <0.2 [facility] Comment on above: Order Comment: Speci men Type: BLOOD SPECIMEN Performed By: #### 2 777-1, 80361-0, , [facility] ####[facility]ORATORYCLIA [id number] [address] Protein [Mass/Vol] 5.7 g/dL Low 6.3-8.0 [facility] Comment on above: Order Comment: Speci men Type: BLOOD SPECIMEN Performed By: #### 2 777-1, , , [facility] ####[facility]ORATORYCLIA [id number] [address] LEVETIRACETAMon 06-10-2021 levETIRAcetam [Mass/Vol] 57.7 ug/mL [...] developed and its performance characteristics determined by [facility] ( [facility]). It has not been cleared or approved by the FDA. [facility] is regulated under CLIA as qualified to perform high complexity testing. This test is used for clinical purposes. It should not be regarded as investigational or for research. Performed By: #### L EMILYET ####[facility] LABCLIA [id number] [id number] [address] [place] Magnesium SerPl-mCncon 06-10 Magnesium [Mass/Vol] 2.7 mg/dL High 1.7-2.3 [facility] Comment on above: Order Comment: Speci men Type: BLOOD SPECIMEN Performed By: #### 2 777-1, 21313-1, , [facility] ####[facility]ORATORYCLIA [id number] [place] [address] [place] Phosphate SerPl-ncon 06-10 Phosphate [Mass/Vol] 1.8 mg/dL Low 2.7-4.8 [facility] Comment on above: Order Comment: Speci men Type: BLOOD SPECIMEN Performed By: #### 2 777-1, 37260-1, , [facility] ####[facility]ORATORYCLIA [id number] [place] [address] [place] ALLIED HEALTHon 06-09-2021 [...] SPECIMEN Performed By: #### 2 4321-2, 2776-05, ####[facility]ATORYCLIA [id number] [place] [address] [place] Calcium [Mass/Vol] 8.3 mg/dL Low 8.5-10.2 [facility] Comment on above: Order Comment: Speci men Type: BLOOD SPECIMEN Performed By: #### 2 4321-2, 2776-05, ####[facility]ATORYCLIA [id number] [place] [address] [place] Chloride [Moles/Vol] 116 mmol/L High 97-105 [facility] Comment on above: Order Comment: Speci men Type: BLOOD SPECIMEN Performed By: #### 2 4321-2, 2776-05, ####[facility]ATORYCLIA [id number] [place] [address] [place] CO2 [Moles/Vol] 27 mmol/L Normal 22-30 [facility] Comment on above: Order Comment: Speci men Type: BLOOD SPECIMEN Performed By: #### 2 4321-2, 2776-05, ####[facility]ATORYCLIA [id number] [address] [place] Creatinine [Mass/Vol] 0.70 mg/dL Low 0.73-1.22 [facility] Comment on above: Order Comment: Speci men Type: BLOOD SPECIMEN Performed By: #### 2 4321-2, 2776-05, ####[facility]ORYCLIA [id number] [address] [place] GFR/1.73 sq M.predicted [...] GFR. Performed By: #### 2 4321-2, 2776-05, ####[facility]ATORYCLIA [id number] [place] [address] [place] Glucose [Mass/Vol] 123 mg/dL High 74-99 [facility] Comment on above: Order Comment: Speci men Type: BLOOD SPECIMEN Result Comment: The [place] Diabetes Association (ADA) provides guidance for cutoff [...] Standards of Medical Care in Diabetes 2016, [place] [employer]. Diabetes Care. 2016.39(Suppl 1). Performed By: #### 2 4321-2, 2776-05, ####[facility]ATORYCLIA [id number] [address] STATES [facility] Potassium [Moles/Vol] 3.5 mmol/L Low 3.7-5.1 [facility] Comment on above: Order Comment: Speci men Type: BLOOD SPECIMEN Performed By: #### 2 1-2, 2776-05, ####[facility]ATORYCLIA [id number] [address] STATES [facility] Sodium [Moles/Vol] 151 mmol/L High 136-144 [facility] Comment on above: Order Comment: Speci men Type: BLOOD SPECIMEN Performed By: #### 2 1-2, 2776-05, ####[facility]ATORYCLIA [id number] [address] [place] Urea nitrogen [Mass/Vol] 39 mg/dL High 9-24 [facility] Comment on above: Order Comment: Speci men Type: BLOOD SPECIMEN Performed By: #### 2 4321-2, 2776-05, ####[facility]ATORYCLIA [id number] [address] [facility] CBC panel Auto (Bld)on 06-09 Erythrocyte distribution width (RBC) [Ratio] 16.2 % High 11.5-15.0 [facility] Comment on above: Order Comment: Speci men Type: BLOOD SPECIMEN Performed By: #### 5 8410-2 ####[facility]ATORYCLIA [id number] [address] Hematocrit (Bld) [Volume fraction] 33.7 % Low 39.0-51.0 [facility] Comment on above: Order Comment: Speci men Type: BLOOD SPECIMEN Performed By: #### 5 8410-2 ####[facility]ATORYCLIA [id number] [address] Hemoglobin (Bld) [Mass/Vol] 10.2 g/dL Low 13.0-17.0 [facility] Comment on above: Order Comment: Speci men Type: BLOOD SPECIMEN Performed By: #### 5 8410-2 ####[facility]ATORYCLIA [id number] [address] MCH (RBC) [Entitic mass] 27.4 pg Normal 26.0-34.0 [facility] Comment on above: Order Comment: Speci men Type: BLOOD SPECIMEN Performed By: #### 5 8410-2 ####[facility]ATORYCLIA [id number] [address] MCHC (RBC) [Mass/Vol] 30.3 g/dL Low 30.5-36.0 [facility] Comment on above: Order Comment: Speci men Type: BLOOD SPECIMEN Performed By: #### 5 8410-2 ####[facility]ATORYCLIA [id number] [address] MCV (RBC) [Entitic vol] 90.6 fL Normal 80.0-100.0 [facility] Comment on above: Order Comment: Speci men Type: BLOOD SPECIMEN Performed By: #### 5 8410-2 ####[facility]ATORYCLIA [id number] [address] Nucleated RBC (Bld) [#/Vol] 10*3/uL Normal <0.01 [facility] Comment on above: Order Comment: Speci men Type: BLOOD SPECIMEN Performed By: #### 5 8410-2 ####[facility]ATORYCLIA [id number] [address] Platelet mean volume (Bld) [Entitic vol] 10.3 fL Normal 9.0-12.7 [facility] Comment on above: Order Comment: Speci men Type: BLOOD SPECIMEN Performed By: #### 5 8410-2 ####[facility]ATORYCLIA [id number] [address] Platelets (Bld) [#/Vol] 219 10*3/uL Normal 150-400 [facility] Comment on above: Order Comment: Speci men Type: BLOOD SPECIMEN Performed By: #### 5 8410-2 ####[facility]ATORYCLIA [id number] [address] RBC (Bld) [#/Vol] 3.72 10*6/uL Low 4.20-6.00 [facility] Comment on above: Order Comment: Speci men Type: BLOOD SPECIMEN Performed By: #### 5 8410-2 ####[facility]ATORYCLIA [id number] [address] WBC (Bld) [#/Vol] 13.02 10*3/uL High 3.70-11.00 [facility] Comment on above: Order Comment: Speci men Type: BLOOD SPECIMEN Performed By: #### 5 8410-2 ####[facility]ATORYCLIA [id number] [address] CONSULT PROGon 06-09-2021 CONSULT PROG Normal [facility] CONSULT PROG Normal [facility] CT BRAIN WO IVCONon 06-09-[address] BRAIN WO IVCON Normal [facility] Magnesium SerPl-mCncon 06-09 Magnesium [Mass/Vol] 2.8 mg/dL High 1.7-2.3 [facility] Comment on above: Order Comment: Speci men Type: BLOOD SPECIMEN Performed By: #### 2 4321-2, 2777-1, 90503-5 ####[facility]ATORYCLIA [id number] [address] NURSING PROGon 06-09-2021 NURSING PROG Normal [facility] NUTRITIONon 06-09-2021 NUTRITION Normal [facility] PT EDon 06-09-2021 PT ED Normal [facility] Phosphate SerPl-mCncon 06-09 Phosphate [Mass/Vol] 2.2 mg/dL Low 2.7-4.8 [facility] Comment on above: Order Comment: Speci men Type: BLOOD SPECIMEN Performed By: #### 2 4321-2, 2777-1, 46021-6 ####[facility]ATORYCLIA [id number] [address] Vancomycin random [Mass/Vol] on 06-09-2021 Vancomycin [Mass/Vol] 18.9 ug/mL Normal 10.0-20.0 [facility] Comment on above: Order Comment: Speci men Type: BLOOD SPECIMEN Result Comment: Refe rence ranges and high/low indicator flags are provided as general guidelines only. The treating physician must determine appropriate target levels/dosing based on the specific clinical situation. Performed By: #### 4 091-5 ####[facility]ORATORYCLIA [id number] [address] XR ABD 2V SUPINE W UPR/DECUB [...] 1 Rare Staphylococcus saccharolyticus Identification performed by [facility] [employer] See scanned document for susceptibility report Normal [facility] Comment on above: Performed By: #### 6 462-6, 635-3 ####[facility]ORATORYCLIA [id number] [place] [address] [place] Bacteria Wnd Culton 06-08-19 22 Bacteria identified Cx Nom (Wound) CULTURE, INTRAOPERATIVE HARDWARE: No growth 5 days GRAM STAIN: Not performed on specimen type Normal [facility] Comment on above: Performed By: #### 6 462-6, 635-3 ####[facility]ORATORYCLIA [id number] [place] [address] [place] Basic metabolic 2000 panelon 06-08-2021 Anion gap [Moles/Vol] 9 mmol/L Normal 9-18 [facility] Comment on above: Order Comment: Speci men Type: BLOOD SPECIMEN Performed By: #### 2 4321-2, 2777-1, ####[facility]ATORYCLIA [id number] [place] [address] [place] Calcium [Mass/Vol] 8.7 mg/dL Normal 8.5-10.2 [facility] Comment on above: Order Comment: Speci men Type: BLOOD SPECIMEN Performed By: #### 2 4321-2, 2777-, ####[facility]ATORYCLIA [id number] [place] [address] [place] Chloride [Moles/Vol] 113 mmol/L High 97-105 [facility] Comment on above: Order Comment: Speci men Type: BLOOD SPECIMEN Performed By: #### 2 4321-2, 2776-05, ####[facility]ATORYCLIA [id number] [place] [address] [place] CO2 [Moles/Vol] 26 mmol/L Normal 22-30 [facility] Comment on above: Order Comment: Speci men Type: BLOOD SPECIMEN Performed By: #### 2 4321-2, 2776-05, ####[facility]ORATORYCLIA [id number] [place] [address] [place] Creatinine [Mass/Vol] 0.68 mg/dL Low 0.73-1.22 [facility] Comment on above: Order Comment: Speci men Type: BLOOD SPECIMEN Performed By: #### 2 4321-2, 2776-05, ####[facility]ATORYCLIA [id number] [address] [place] GFR/1.73 sq M.predicted [...] GFR. Performed By: #### 2 4321-2, 2776-05, ####[facility]ORATORYCLIA [id number] [place] [address] [place] Glucose [Mass/Vol] 146 mg/dL High 74-99 [facility] Comment on above: Order Comment: Speci men Type: BLOOD SPECIMEN Result Comment: The [place] Diabetes Association (ADA) provides guidance for cutoff [...] Standards of Medical Care in Diabetes 2016, [place] [employer]. Diabetes Care. 2016.39(Suppl 1). Performed By: #### 2 4321-2, 2776-05, ####[facility]ORATORYCLIA [id number] [address] STATES [facility] Potassium [Moles/Vol] 3.6 mmol/L Low 3.7-5.1 [facility] Comment on above: Order Comment: Speci men Type: BLOOD SPECIMEN Performed By: #### 2 1-2, 2776-05, ####[facility]ORATORYCLIA [id number] [address] STATES [facility] Sodium [Moles/Vol] 148 mmol/L High 136-144 [facility] Comment on above: Order Comment: Speci men Type: BLOOD SPECIMEN Performed By: #### 2 4321-2, 2776-05, ####[facility]ORATORYCLIA [id number] [address] [place] Urea nitrogen [Mass/Vol] 36 mg/dL High 9-24 [facility] Comment on above: Order Comment: Speci men Type: BLOOD SPECIMEN Performed By: #### 2 4321-2, 2776-05, ####[facility]ORATORYCLIA [id number] [address] [facility] CASE MANAGEMon 06-08-2021 CASE MANAGEM Normal [facility] CBC panel Auto (Bld)on 06-08 Erythrocyte distribution width (RBC) [Ratio] 16.0 % High 11.5-15.0 [facility] Comment on above: Order Comment: Speci men Type: BLOOD SPECIMEN Performed By: #### 5 8410-2 ####[facility]ATORYCLIA [id number] [address] Hematocrit (Bld) [Volume fraction] 38.4 % Low 39.0-51.0 [facility] Comment on above: Order Comment: Speci men Type: BLOOD SPECIMEN Performed By: #### 5 8410-2 ####[facility]ATORYCLIA [id number] [address] Hemoglobin (Bld) [Mass/Vol] 12.1 g/dL Low 13.0-17.0 [facility] Comment on above: Order Comment: Speci men Type: BLOOD SPECIMEN Performed By: #### 5 8410-2 ####[facility]ATORYCLIA [id number] [address] MCH (RBC) [Entitic mass] 28.3 pg Normal 26.0-34.0 [facility] Comment on above: Order Comment: Speci men Type: BLOOD SPECIMEN Performed By: #### 5 8410-2 ####[facility]ORATORYCLIA [id number] [address] MCHC (RBC) [Mass/Vol] 31.5 g/dL Normal 30.5-36.0 [facility] Comment on above: Order Comment: Speci men Type: BLOOD SPECIMEN Performed By: #### 5 8410-2 ####[facility]ORATORYCLIA [id number] [address] MCV (RBC) [Entitic vol] 89.9 fL Normal 80.0-100.0 [facility] Comment on above: Order Comment: Speci men Type: BLOOD SPECIMEN Performed By: #### 5 8410-2 ####[facility]ATORYCLIA [id number] [address] Nucleated RBC (Bld) [#/Vol] 10*3/uL Normal <0.01 [facility] Comment on above: Order Comment: Speci men Type: BLOOD SPECIMEN Performed By: #### 5 8410-2 ####[facility]ATORYCLIA [id number] [address] Platelet mean volume (Bld) [Entitic vol] 10.3 fL Normal 9.0-12.7 [facility] Comment on above: Order Comment: Speci men Type: BLOOD SPECIMEN Performed By: #### 5 8410-2 ####[facility]ORATORYCLIA [id number] [address] STATES [facility] Platelets (Bld) [#/Vol] 236 10*3/uL Normal 150-400 [facility] Comment on above: Order Comment: Speci men Type: BLOOD SPECIMEN Performed By: #### 5 8410-2 ####[facility]ATORYCLIA [id number] [address] RBC (Bld) [#/Vol] 4.27 10*6/uL Normal 4.20-6.00 [facility] Comment on above: Order Comment: Speci men Type: BLOOD SPECIMEN Performed By: #### 5 8410-2 ####[facility] LABORATORYCLIA [id number] [address] WBC (Bld) [#/Vol] 11.06 10*3/uL High 3.70-11.00 [facility] Comment on above: Order Comment: Speci men Type: BLOOD SPECIMEN Performed By: #### 5 8410-2 ####[facility] LABORATORYCLIA [id number] [address] CONSULT PROGon 06-08-2021 CONSULT PROG Normal [facility] CT BRAIN WO IVCONon 06-08-[address] BRAIN WO IVCON Normal [facility] Magnesium SerPl-mCncon 06-08 Magnesium [Mass/Vol] 2.8 mg/dL High 1.7-2.3 [facility] Comment on above: Order Comment: Speci men Type: BLOOD SPECIMEN Performed By: #### 2 4321-2, 2777-1, 14661-1 ####[facility] LABORATORYCLIA [id number] [address] Microorganism Spec Culton Microorganism identified Cx Nom (Unsp spec) CULTURE, FUNGAL: No Fungus isolated after 28 days FUNGAL SMEAR: No fungus seen Normal [facility] Comment on above: Performed By: #### 1 1475-1 ####[facility] LABORATORYCLIA [id number] [address] NURSING PROGon 06-08-2021 NURSING PROG Normal [facility] OPERATIVE NOon 06-08-2021 OPERATIVE NO Normal [facility] OPERATIVE NO [facility] PT panel Coag (PPP)on 2021 INR Coag (PPP) [Relative time] 1.1 {INR} Normal 0.9-1.3 [facility] Comment on above: Order Comment: Speci men Type: BLOOD SPECIMEN Result Comment: Yris min K Antagonist (VKA) Therapeutic Range: INR 2 to 3 (Target INR of 2.5)Note: For patients treated with VKA drugs, such as warfarin, the [place] [employer] 2012 Guideline recommends [...] al. Chest 2012, 141:7S-47SAlba MURRY et al. [facility] 2017, 70: 252-289 Performed By: #### 3 4528-0, 49346-4 ####[facility] LABORATORYCLIA [id number] PT Coag (PPP) [Time] 11.9 s Normal 9.7-13.0 [facility] Comment on above: Order Comment: Speci men Type: BLOOD SPECIMEN Performed By: #### 3 4528-0, 41647-0 ####[facility] LABORATORYCLIA [id number] [address] [facility] Phosphate SerPl-mCncon 06-08 Phosphate [Mass/Vol] 2.3 mg/dL Low 2.7-4.8 [facility] Comment on above: Order Comment: Speci men Type: BLOOD SPECIMEN Performed By: #### 2 4321-2, 2777-1, 46645-2 ####[facility] LABORATORYCLIA [id number] [address] aPTT PPPon 06-08-2021 aPTT Coag (PPP) [Time] 24.2 s Normal 23.0-32.4 [facility] Comment on above: Order Comment: Speci men Type: BLOOD SPECIMEN Performed By: #### 3 4528-0, 88044-5 ####[facility] LABORATORYCLIA [id number] [address] [facility] ALLIED HEALTHon 06-07-2021 ALLIED HEALTH Normal [facility] [...] on above: Performed By: #### 6 06-4 ####[facility] LABORATORYCLIA [id number] [address] [facility] Basic metabolic 2000 panelon 06-07-2021 Anion gap [Moles/Vol] 9 mmol/L Normal 9-18 [facility] Comment on above: Order Comment: Speci men Type: BLOOD SPECIMEN Performed By: #### 1 9123-9, 2777-1, 76525-3 ####[facility] LABORATORYCLIA [id number] [address] STATES [facility] Calcium [Mass/Vol] 8.8 mg/dL Normal 8.5-10.2 [facility] Comment on above: Order Comment: Speci men Type: BLOOD SPECIMEN Performed By: #### 1 9123-9, 2777-1, 16033-1 ####[facility] LABORATORYCLIA [id number] [address] [place] Chloride [Moles/Vol] 111 mmol/L High 97-105 [facility] Comment on above: Order Comment: Speci men Type: BLOOD SPECIMEN Performed By: #### 1 9123-9, 2776-05, 61463-7 ####[facility] LABORATORYCLIA [id number] [address] CO2 [Moles/Vol] 27 mmol/L Normal 22-30 [facility] Comment on above: Order Comment: Speci men Type: BLOOD SPECIMEN Performed By: #### 1 9123-9, 27711-04, 84079-5 ####[facility] LABORATORYCLIA [id number] [address] [facility] Creatinine [Mass/Vol] 0.66 mg/dL Low 0.73-1.22 [facility] Comment on above: Order Comment: Speci men Type: BLOOD SPECIMEN Performed By: #### 1 9123-9, 2777, 12529-1 ####[facility] LABORATORYCLIA [id number] [address] [place] GFR/1.73 sq M.predicted [...] GFR. Performed By: #### 1 9123-9, 2776-05, 77989-8 ####[facility] LABORATORYCLIA [id number] [place] [address] [place] Glucose [Mass/Vol] 123 mg/dL High 74-99 [facility] Comment on above: Order Comment: Speci men Type: BLOOD SPECIMEN Result Comment: The [place] [employer] Association (ADA) provides guidance for cutoff [...] Standards of Medical Care in Diabetes 2016, [place] [employer]. Diabetes Care. 2016.39(Suppl 1). Performed By: #### 1 9123-9, 2776-05, ####[facility] LABORATORYCLIA [id number] [address] [place] [facility] Potassium [Moles/Vol] 3.6 mmol/L Low 3.7-5.1 [facility] Comment on above: Order Comment: Speci men Type: BLOOD SPECIMEN Performed By: #### 1 9123-9, 2776-05, 40637-3 ####[facility] LABORATORYCLIA [id number] [address] [place] Sodium [Moles/Vol] 147 mmol/L High 136-144 [facility] Comment on above: Order Comment: Speci men Type: BLOOD SPECIMEN Performed By: #### 1 9123-9, 2777-1, 36581-8 ####[facility]ORATORYCLIA [id number] [address] [place] Urea nitrogen [Mass/Vol] 30 mg/dL High 9-24 [facility] Comment on above: Order Comment: Speci men Type: BLOOD SPECIMEN Performed By: #### 1 9123-9, 2777-1, 43537-8 ####[facility]ORATORYCLIA [id number] [address] STATES [facility] CBC W Auto Differential pane l (Bld)on 06-07-2021 Basophils (Bld) [#/Vol] 10*3/uL Normal <0.11 [facility] Comment on above: Order Comment: Speci men Type: BLOOD SPECIMEN Performed By: #### 5 7021-8 ####[facility]ORATORYCLIA [id number] [address] Basophils/100 WBC (Bld) 0.2 % Normal [facility] Comment on above: Order Comment: Speci men Type: BLOOD SPECIMEN Performed By: #### 5 7021-8 ####[facility]ORATORYCLIA [id number] [address] Differential cell count method Nom (Bld) Auto Normal [facility] Comment on above: Order Comment: Speci men Type: BLOOD SPECIMEN Performed By: #### 5 7021-8 ####[facility]ORATORYCLIA [id number] [address] [place] Eosinophils (Bld) [#/Vol] 0.06 10*3/uL Normal <0.46 [facility] Comment on above: Order Comment: Speci men Type: BLOOD SPECIMEN Performed By: #### 5 7021-8 ####[facility]ORATORYCLIA [id number] [address] Eosinophils/100 WBC (Bld) 0.6 % Normal [facility] Comment on above: Order Comment: Speci men Type: BLOOD SPECIMEN Performed By: #### 5 7021-8 ####[facility]ORATORYCLIA [id number] [address] Erythrocyte distribution width (RBC) [Ratio] 15.8 % High 11.5-15.0 [facility] Comment on above: Order Comment: Speci men Type: BLOOD SPECIMEN Performed By: #### 5 7021-8 ####[facility] LABORATORYCLIA [id number] [address] Hematocrit (Bld) [Volume fraction] 40.4 % Normal 39.0-51.0 [facility] Comment on above: Order Comment: Speci men Type: BLOOD SPECIMEN Performed By: #### 5 7021-8 ####[facility] LABORATORYCLIA [id number] [address] Hemoglobin (Bld) [Mass/Vol] 12.4 g/dL Low 13.0-17.0 [facility] Comment on above: Order Comment: Speci men Type: BLOOD SPECIMEN Performed By: #### 5 7021-8 ####[facility] LABORATORYCLIA [id number] [address] IMMATURE GRAN % 0.7 % Normal [facility] Comment on above: Order Comment: Speci men Type: BLOOD SPECIMEN Performed By: #### 5 7021-8 ####[facility] LABORATORYCLIA [id number] [address] IMMATURE GRAN ABS 0.07 k/uL Normal <0.10 [facility] Comment on above: Order Comment: Speci men Type: BLOOD SPECIMEN Performed By: #### 5 7021-8 ####[facility] LABORATORYCLIA [id number] [address] Lymphocytes (Bld) [#/Vol] 1.43 10*3/uL Normal 1.00-4.00 [facility] Comment on above: Order Comment: Speci men Type: BLOOD SPECIMEN Performed By: #### 5 7021-8 ####[facility] LABORATORYCLIA [id number] [address] Lymphocytes/100 WBC (Bld) 14.1 % Normal [facility] Comment on above: Order Comment: Speci men Type: BLOOD SPECIMEN Performed By: #### 5 7021-8 ####[facility] LABORATORYCLIA [id number] [address] MCH (RBC) [Entitic mass] 27.6 pg Normal 26.0-34.0 [facility] Comment on above: Order Comment: Speci men Type: BLOOD SPECIMEN Performed By: #### 5 7021-8 ####[facility] LABORATORYCLIA [id number] [address] MCHC (RBC) [Mass/Vol] 30.7 g/dL Normal 30.5-36.0 [facility] Comment on above: Order Comment: Speci men Type: BLOOD SPECIMEN Performed By: #### 5 7021-8 ####[facility] LABORATORYCLIA [id number] [address] MCV (RBC) [Entitic vol] 89.8 fL Normal 80.0-100.0 [facility] Comment on above: Order Comment: Speci men Type: BLOOD SPECIMEN Performed By: #### 5 7021-8 ####[facility] LABORATORYCLIA [id number] [address] Monocytes (Bld) [#/Vol] 0.82 10*3/uL Normal <0.87 [facility] Comment on above: Order Comment: Speci men Type: BLOOD SPECIMEN Performed By: #### 5 7021-8 ####[facility] LABORATORYCLIA [id number] [address] Monocytes/100 WBC (Bld) 8.1 % Normal [facility] Comment on above: Order Comment: Speci men Type: BLOOD SPECIMEN Performed By: #### 5 7021-8 ####[facility] LABORATORYCLIA [id number] [address] Neutrophils (Bld) [#/Vol] 7.74 10*3/uL High 1.45-7.50 [facility] Comment on above: Order Comment: Speci men Type: BLOOD SPECIMEN Performed By: #### 5 7021-8 ####[facility] LABORATORYCLIA [id number] [address] Neutrophils/100 WBC (Bld) 76.3 % Normal [facility] Comment on above: Order Comment: Speci men Type: BLOOD SPECIMEN Performed By: #### 5 7021-8 ####[facility]ORATORYCLIA [id number] [address] Nucleated RBC (Bld) [#/Vol] 10*3/uL Normal <0.01 [facility] Comment on above: Order Comment: Speci men Type: BLOOD SPECIMEN Performed By: #### 5 7021-8 ####[facility] LABORATORYCLIA [id number] [address] Nucleated RBC/100 WBC (Bld) [Ratio] 0.0 /100 WBC Normal 0.0 [facility] Comment on above: Order Comment: Speci men Type: BLOOD SPECIMEN Performed By: #### 5 7021-8 ####[facility] LABORATORYCLIA [id number] [address] Platelet mean volume (Bld) [Entitic vol] 10.4 fL Normal 9.0-12.7 [facility] Comment on above: Order Comment: Speci men Type: BLOOD SPECIMEN Performed By: #### 5 7021-8 ####[facility] LABORATORYCLIA [id number] [address] Platelets (Bld) [#/Vol] 236 10*3/uL Normal 150-400 [facility] Comment on above: Order Comment: Speci men Type: BLOOD SPECIMEN Performed By: #### 5 7021-8 ####[facility]ATORYCLIA [id number] [address] RBC (Bld) [#/Vol] 4.50 10*6/uL Normal 4.20-6.00 [facility] Comment on above: Order Comment: Speci men Type: BLOOD SPECIMEN Performed By: #### 5 7021-8 ####[facility] LABORATORYCLIA [id number] [address] WBC (Bld) [#/Vol] 10.14 10*3/uL Normal 3.70-11.00 [facility] Comment on above: Order Comment: Speci men Type: BLOOD SPECIMEN Performed By: #### 5 7021-8 ####[facility] LABORATORYCLIA [id number] [address] CBC panel Auto (Bld)on 06-07 Erythrocyte distribution width (RBC) [Ratio] 15.8 % High 11.5-15.0 [facility] Comment on above: Order Comment: Speci men Type: BLOOD SPECIMEN Performed By: #### 5 8410-2 ####[facility] LABORATORYCLIA [id number] [address] Hematocrit (Bld) [Volume fraction] 40.0 % Normal 39.0-51.0 [facility] Comment on above: Order Comment: Speci men Type: BLOOD SPECIMEN Performed By: #### 5 8410-2 ####[facility] LABORATORYCLIA [id number] [address] Hemoglobin (Bld) [Mass/Vol] 12.3 g/dL Low 13.0-17.0 [facility] Comment on above: Order Comment: Speci men Type: BLOOD SPECIMEN Performed By: #### 5 8410-2 ####[facility] LABORATORYCLIA [id number] [address] MCH (RBC) [Entitic mass] 27.3 pg Normal 26.0-34.0 [facility] Comment on above: Order Comment: Speci men Type: BLOOD SPECIMEN Performed By: #### 5 8410-2 ####[facility] LABORATORYCLIA [id number] [address] MCHC (RBC) [Mass/Vol] 30.8 g/dL Normal 30.5-36.0 [facility] Comment on above: Order Comment: Speci men Type: BLOOD SPECIMEN Performed By: #### 5 8410-2 ####[facility] LABORATORYCLIA [id number] [address] MCV (RBC) [Entitic vol] 88.7 fL Normal 80.0-100.0 [facility] Comment on above: Order Comment: Speci men Type: BLOOD SPECIMEN Performed By: #### 5 8410-2 ####[facility] LABORATORYCLIA [id number] [address] Nucleated RBC (Bld) [#/Vol] 10*3/uL Normal <0.01 [facility] Comment on above: Order Comment: Speci men Type: BLOOD SPECIMEN Performed By: #### 5 8410-2 ####[facility] LABORATORYCLIA [id number] [address] Platelet mean volume (Bld) [Entitic vol] 10.0 fL Normal 9.0-12.7 [facility] Comment on above: Order Comment: Speci men Type: BLOOD SPECIMEN Performed By: #### 5 8410-2 ####[facility] LABORATORYCLIA [id number] [address] Platelets (Bld) [#/Vol] 234 10*3/uL Normal 150-400 [facility] Comment on above: Order Comment: Speci men Type: BLOOD SPECIMEN Performed By: #### 5 8410-2 ####[facility] LABORATORYCLIA [id number] [address] RBC (Bld) [#/Vol] 4.51 10*6/uL Normal 4.20-6.00 [facility] Comment on above: Order Comment: Speci men Type: BLOOD SPECIMEN Performed By: #### 5 8410-2 ####[facility] LABORATORYCLIA [id number] [place] [address] [place] WBC (Bld) [#/Vol] 11.47 10*3/uL High 3.70-11.00 [facility] Comment on above: Order Comment: Speci men Type: BLOOD SPECIMEN Performed By: #### 5 8410-2 ####[facility] LABORATORYCLIA [id number] [address] [place] CONSULT PROGon 06-07-2021 CONSULT PROG Normal [facility] CONSULT PROG Normal [facility] CSF MANUAL DIFFon 06-07-2021 DIF TTL, CSF 92 cells counted Normal [facility] Comment on above: Order Comment: Speci men Type: CEREBROSPINAL FLUID Performed By: #### 3 4563-7, [id number], [id number] ####[facility] LABORATORYCLIA [id number] [address] [place] EOSIN%, CSF 1 % Normal [facility] Comment on above: Order Comment: Speci men Type: CEREBROSPINAL FLUID Performed By: #### 3 4563-7, [id number], [id number] ####[facility]ORATORYCLIA [id number] [place], [place] [address] [place] [address] [place] LYMPH%, CSF 21 % Low 50-90 [facility] Comment on above: Order Comment: Speci men Type: CEREBROSPINAL FLUID Performed By: #### 3 4563-7, ONG2012, [id number] ####[facility] LABORATORYCLIA [id number] [address] [place] MACRO%, CSF 27 % High <1 [facility] Comment on above: Order Comment: Speci men Type: CEREBROSPINAL FLUID Result Comment: Tati ected result: Previously reported as 22 % on 06/07/2021 at 1:49 PM EST. Performed By: #### 3 4563-7, [id number], HYQ4304 ####[facility]ORATORYCLIA [id number] [place], [place] [address] [place] [address] [place] MONO%, CSF 36 % Normal 10-50 [facility] Comment on above: Order Comment: Speci men Type: CEREBROSPINAL FLUID Performed By: #### 3 4563-7, [id number], DRP5731 ####[facility] LABORATORYCLIA [id number] [address] NEUT%, CSF 11 % High 0-3 [facility] Comment on above: Order Comment: Speci men Type: CEREBROSPINAL FLUID Performed By: #### 3 4563-7, IZQ0027, LKV0914 ####[facility] LABORATORYCLIA [id number] [address] OTHER CL%, CSF 4 % Normal [facility] Comment on above: Order Comment: Speci men Type: CEREBROSPINAL FLUID Result Comment: Path review to follow.Corrected result: Previously reported as 10 % on 06/07/2021 at 1:49 PM EST. Performed By: #### 3 4563-7, [id number], SDT3117 ####[facility] LABORATORYCLIA [id number] [address] CSF PATHOLOGIST INTERP (LAB REFLEX ORDER-NO BILL)on 06-07-2021 CSF STAFF REVIEW Negative for maligna nt cells. Rare immature myeloid or ventricular lining cells. Normal [facility] Comment on above: Order Comment: Speci men Type: CEREBROSPINAL FLUID Performed By: #### 3 4563-7, [id number], AZM5392 ####[facility] LABORATORYCLIA [id number] [address] Pathologist name Reviewed by Eloise rebolledo MD Normal [facility] Comment on above: Order Comment: Speci men Type: CEREBROSPINAL FLUID Performed By: #### 3 4563-7, ASN0492, AIR6105 ####[facility] LABORATORYCLIA [id number] [address] BRAIN WO IVCONon 06-07-19 CT BRAIN WO IVCON Normal [facility] CT BRAIN WO IVCON Normal [facility] Cell count panel (CSF)on Clarity (CSF) Clear Normal Clear [facility] Comment on above: Order Comment: Speci men Type: CEREBROSPINAL FLUID Performed By: #### 3 4563-7, TGS6276, [id number] ####[facility]ORATORYCLIA [id number] [address] Clarity (Unsp spec) Not Indicated Normal Clear [facility] Comment on above: Order Comment: Speci men Type: CEREBROSPINAL FLUID Performed By: #### 3 4563-7, MTS1673, JLW9606 ####[facility]ORATORYCLIA [id number] [address] Color (CSF) Colorless Normal Colorless [facility] Comment on above: Order Comment: Speci men Type: CEREBROSPINAL FLUID Performed By: #### 3 4563-7, QJJ1644, BIC0506 ####[facility]ORATORYCLIA [id number] [address] Color (Spun CSF) Not Indicated Normal Colorless [facility] Comment on above: Order Comment: Speci men Type: CEREBROSPINAL FLUID Performed By: #### 3 4563-7, TEJ7851, HDG0009 ####[facility]ORATORYCLIA [id number] [address] CSF TUBE NUMBER Sterile Container Normal [facility] Comment on above: Order Comment: Speci men Type: CEREBROSPINAL FLUID Performed By: #### 3 4563-7, YJE2643, LYC7488 ####[facility]ATORYCLIA [id number] [address] RBC Manual cnt (CSF) [#/Vol] 42 cells/uL High 0-5 [facility] Comment on above: Order Comment: Speci men Type: CEREBROSPINAL FLUID Performed By: #### 3 4563-7, JXA9540, OQT2918 ####[facility]ATORYCLIA [id number] [address] WBC Manual cnt (CSF) [#/Vol] 1 cells/uL Normal 0-5 [facility] Comment on above: Order Comment: Speci men Type: CEREBROSPINAL FLUID Performed By: #### 3 4563-7, XSQ8111, TPB1230 ####[facility]ORATORYCLIA [id number] [place] [address] [place] Glucose CSF-mCncon 2 [...] [package insert V 12.0 [place]er]. [employer], [place], [place]. September 2015. 2. Michelle Moore, Loki H. (2015). Chapter 7: Glucose and Lactate. Marianela Rothman.(eds.), Cerebrospinal Fluid in Clinical Neurology. [place]: Docin. Performed By: #### 2 880-3, 2342-4 ####[facility] LABORATORYCLIA [id number] [address] [place] Lactate (Bld) [Moles/Vol]on 06-07-2021 Lactate [Moles/Vol] 0.9 mmol/L Normal 0.5-2.2 [facility] Comment on above: Order Comment: Speci men Type: BLOOD SPECIMEN Performed By: #### 3 2693-4 ####[facility] LABORATORYCLIA [id number] [address] [place] Lipase SerPl-cCncon 06-07-19 22 Lipase [Catalytic activity/Vol] 35 U/L Normal 16-61 [facility] Comment on above: Order Comment: Speci men Type: BLOOD SPECIMEN Performed By: #### 3 040-3, PROCAL ####[facility] LABORATORYCLIA [id number] [address] [place] Magnesium SerPl-ncon 06-07 Magnesium [Mass/Vol] 2.7 mg/dL High 1.7-2.3 [facility] Comment on above: Order Comment: Speci men Type: BLOOD SPECIMEN Performed By: #### 1 9123-9, 2777-1, 12358-8 ####[facility] LABORATORYCLIA [id number] [address] PROCALCITONIN (LAB)on 2021 Procalcitonin [Mass/Vol] 0.13 ng/mL High <0.09 [facility] Comment on above: Order Comment: Speci men Type: BLOOD SPECIMEN Result Comment: For a guided interpretation of test results, please visit the Change in Procalcitonin Calculator, [email or web address]. Performed By: #### 3 040-3, PROCAL ####[facility] LABORATORYCLIA [id number] [address] Phosphate SerPl-ncon 06-07 Phosphate [Mass/Vol] 1.9 mg/dL Low 2.7-4.8 [facility] Comment on above: Order Comment: Speci men Type: BLOOD SPECIMEN Performed By: #### 1 9123-9, 2777-1, 38803-0 ####[facility] LABORATORYCLIA [id number] [address] Prot CSF-ncon 06-07-2021 Protein (CSF) [Mass/Vol] 33 mg/dL Normal 15-45 [facility] Comment on above: Order Comment: Speci men Type: CEREBROSPINAL FLUID Performed By: #### 2 880-3, 2342-4 ####[facility] LABORATORYCLIA [id number] [address] [facility] SARS-CoV-2 RNA Resp Ql MEGAN+p robeon 06-07-2021 SARS-CoV-2 (COVID-19) RNA MEGAN+probe Ql (Resp) COVID 19 RESULT: SARS-CoV-2 (Agent of COVID-19) Not Detected by PCR. This test has been authorized by FDA under an Emergency Use Authorization (EUA). Normal [facility] Comment on above: Performed By: #### 9 4500-6 ####[facility] LABORATORYCLIA [id number] [address] TYPE AND SCREENon 06-07-2021 ABO O Normal [facility] Comment on above: Order Comment: Speci men Type: BLOOD SPECIMEN Performed By: #### T SCR ####[facility] BLOOD BANKCLIA [id number] [address] HISTORICAL AB SCR STATUS Negative Normal [facility] Comment on above: Order Comment: Speci men Type: BLOOD SPECIMEN Performed By: #### T SCR ####[facility] BLOOD BANKCLIA [id number] [address] Rh Nom (Bld) Positive Normal [facility] Comment on above: Order Comment: Speci men Type: BLOOD SPECIMEN Performed By: #### T SCR ####[facility] BLOOD BANKCLIA [id number] [address] TYPE AND SCREEN EXPIRATION 06/10/2021 23:59 Normal [facility] Comment on above: Order Comment: Speci men Type: BLOOD SPECIMEN Performed By: #### T SCR ####[facility] BLOOD BANKCLIA [id number] [address] Vancomycin random [Mass/Vol] on 06-07-2021 Vancomycin [Mass/Vol] 16.5 ug/mL Normal 10.0-20.0 [facility] Comment on above: Order Comment: Speci men Type: BLOOD SPECIMEN Result Comment: Refe rence ranges and high/low indicator flags are provided as general guidelines only. The treating physician must determine appropriate target levels/dosing based on the specific clinical situation. Performed By: #### 4 091-5 ####[facility] LABORATORYCLIA [id number] [address] XR CHEST 1V FRONTAL PORTon 0 06-07-2021 XR CHEST 1V FRONTAL PORT Normal [facility] Basic metabolic 2000 panelon 06-06-2021 Anion gap [Moles/Vol] 11 mmol/L Normal 9-18 [facility] Comment on above: Order Comment: Speci men Type: BLOOD SPECIMEN Performed By: #### 2 4321-2, , 2776-05 ####[facility] LABORATORYCLIA [id number] [place], [place] [id number] [place] [address] [place] Calcium [Mass/Vol] 8.6 mg/dL Normal 8.5-10.2 [facility] Comment on above: Order Comment: Speci men Type: BLOOD SPECIMEN Performed By: #### 2 4321-2, , 2776-05 ####[facility] LABORATORYCLIA [id number] [address] STATES OF [facility] Chloride [Moles/Vol] 108 mmol/L High 97-105 [facility] Comment on above: Order Comment: Speci men Type: BLOOD SPECIMEN Performed By: #### 2 4321-2, , 2776-05 ####[facility] LABORATORYCLIA [id number] [address] [place] CO2 [Moles/Vol] 25 mmol/L Normal 22-30 [facility] Comment on above: Order Comment: Speci men Type: BLOOD SPECIMEN Performed By: #### 2 4321-2, , 2776-05 ####[facility] LABORATORYCLIA [id number] [address] [place] Creatinine [Mass/Vol] 0.76 mg/dL Normal 0.73-1.22 [facility] Comment on above: Order Comment: Speci men Type: BLOOD SPECIMEN Performed By: #### 2 4321-2, , 2776-05 ####[facility] LABORATORYCLIA [id number] [address] [place] GFR/1.73 sq M.predicted [...] Performed By: #### 2 1-2, , 2776-05 ####[facility] LABORATORYCLIA [id number] [place] [address] [place] Glucose [Mass/Vol] 116 mg/dL High 74-99 [facility] Comment on above: Order Comment: Speci men Type: BLOOD SPECIMEN Result Comment: The [place] Diabetes [employer] (ADA) provides guidance for cutoff [...] Standards of Medical Care in Diabetes 2016, [place] [employer]. Diabetes Care. 2016.39(Suppl 1). Performed By: #### 2 4320-2, , 2776-05 ####[facility] LABORATORYCLIA [id number] [address] [place] Potassium [Moles/Vol] 3.5 mmol/L Low 3.7-5.1 [facility] Comment on above: Order Comment: Speci men Type: BLOOD SPECIMEN Performed By: #### 2 4320-2, , 2776-05 ####[facility] LABORATORYCLIA [id number] [address] [place] Sodium [Moles/Vol] 144 mmol/L Normal 136-144 [facility] Comment on above: Order Comment: Speci men Type: BLOOD SPECIMEN Performed By: #### 2 4321-2, , 2776-05 ####[facility] LABORATORYCLIA [id number] [address] STATES [facility] Urea nitrogen [Mass/Vol] 31 mg/dL High 9-24 [facility] Comment on above: Order Comment: Speci men Type: BLOOD SPECIMEN Performed By: #### 2 4321-2, 24871-8, 2776-05 ####[facility] LABORATORYCLIA [id number] [address] CASE MANAGEMon 06-06-2021 CASE MANAGEM Normal [facility] CBC panel Auto (Bld)on 06-06 Erythrocyte distribution width (RBC) [Ratio] 15.8 % High 11.5-15.0 [facility] Comment on above: Order Comment: Speci men Type: BLOOD SPECIMEN Performed By: #### 5 8410-2 ####[facility] LABORATORYCLIA [id number] [address] Hematocrit (Bld) [Volume fraction] 39.5 % Normal 39.0-51.0 [facility] Comment on above: Order Comment: Speci men Type: BLOOD SPECIMEN Performed By: #### 5 8410-2 ####[facility] LABORATORYCLIA [id number] [address] Hemoglobin (Bld) [Mass/Vol] 12.2 g/dL Low 13.0-17.0 [facility] Comment on above: Order Comment: Speci men Type: BLOOD SPECIMEN Performed By: #### 5 8410-2 ####[facility] LABORATORYCLIA [id number] [address] MCH (RBC) [Entitic mass] 27.8 pg Normal 26.0-34.0 [facility] Comment on above: Order Comment: Speci men Type: BLOOD SPECIMEN Performed By: #### 5 8410-2 ####[facility] LABORATORYCLIA [id number] [address] MCHC (RBC) [Mass/Vol] 30.9 g/dL Normal 30.5-36.0 [facility] Comment on above: Order Comment: Speci men Type: BLOOD SPECIMEN Performed By: #### 5 8410-2 ####[facility] LABORATORYCLIA [id number] [address] MCV (RBC) [Entitic vol] 90.0 fL Normal 80.0-100.0 [facility] Comment on above: Order Comment: Speci men Type: BLOOD SPECIMEN Performed By: #### 5 8410-2 ####[facility] LABORATORYCLIA [id number] [address] Nucleated RBC (Bld) [#/Vol] 10*3/uL Normal <0.01 [facility] Comment on above: Order Comment: Speci men Type: BLOOD SPECIMEN Performed By: #### 5 8410-2 ####[facility] LABORATORYCLIA [id number] [address] Platelet mean volume (Bld) [Entitic vol] 10.4 fL Normal 9.0-12.7 [facility] Comment on above: Order Comment: Speci men Type: BLOOD SPECIMEN Performed By: #### 5 8410-2 ####[facility] LABORATORYCLIA [id number] [address] Platelets (Bld) [#/Vol] 236 10*3/uL Normal 150-400 [facility] Comment on above: Order Comment: Speci men Type: BLOOD SPECIMEN Performed By: #### 5 8410-2 ####[facility] LABORATORYCLIA [id number] [address] RBC (Bld) [#/Vol] 4.39 10*6/uL Normal 4.20-6.00 [facility] Comment on above: Order Comment: Speci men Type: BLOOD SPECIMEN Performed By: #### 5 8410-2 ####[facility] LABORATORYCLIA [id number] [address] WBC (Bld) [#/Vol] 9.74 10*3/uL Normal 3.70-11.00 [facility] Comment on above: Order Comment: Speci men Type: BLOOD SPECIMEN Performed By: #### 5 8410-2 ####[facility] LABORATORYCLIA [id number] [place] [id number] [facility] CONSULT PROGon 06-06-2021 CONSULT PROG Normal [facility] CONSULT PROG Normal [facility] Magnesium SerPl-mCncon 06-06 Magnesium [Mass/Vol] 2.5 mg/dL High 1.7-2.3 [facility] Comment on above: Order Comment: Speci men Type: BLOOD SPECIMEN Performed By: #### 2 4321-2, 50739-0, 2777-1 ####[facility] LABORATORYCLIA [id number] [address] PT panel Coag (PPP)on 2021 INR Coag (PPP) [Relative time] 1.0 {INR} Normal 0.9-1.3 [facility] Comment on above: Order Comment: Speci men Type: BLOOD SPECIMEN Result Comment: Yris min K Antagonist (VKA) Therapeutic Range: INR 2 to 3 (Target INR of 2.5)Note: For patients treated with VKA drugs, such as warfarin, the [place] [employer] 2012 Guideline recommends [...] al. Chest 2012, 141:7S-47SAlba MURRY, et al. [facility] 2017, 70: 252-289 Performed By: #### 3 4528-0, 53673-6 ####[facility] LABORATORYCLIA [id number] [address] PT Coag (PPP) [Time] 11.4 s Normal 9.7-13.0 [facility] Comment on above: Order Comment: Speci men Type: BLOOD SPECIMEN Performed By: #### 3 4528-0, 27470-5 ####[facility] LABORATORYCLIA [id number] [address] Phosphate SerPl-mCncon 06-06 Phosphate [Mass/Vol] 2.3 mg/dL Low 2.7-4.8 [facility] Comment on above: Order Comment: Speci men Type: BLOOD SPECIMEN Performed By: #### 2 4321-2, 90024-0, 2777-1 ####[facility] LABORATORYCLIA [id number] [address] THROMBOGRAPH HEPARINASE PANE Kiel 06-06-2021 Clot angle after addition of heparinase TEG (Bld) [Angle] 70.2 degrees Normal 47.0-74.0 [facility] Comment on above: Order Comment: Speci men Type: BLOOD SPECIMEN Performed By: #### T EGHPP ####[facility] LABORATORYCLIA [id number] [address] Clot Lysis 30 Min post maximum clot amplitude TEG (Bld) [Length fraction] 0.0 % Normal 0.0-8.0 [facility] Comment on above: Order Comment: Speci men Type: BLOOD SPECIMEN Performed By: #### T EGHPP ####[facility] LABORATORYCLIA [id number] [address] Clotting time after addition of heparinase TEG (Bld) 5.7 minutes Normal 4.0-10.0 [facility] Comment on above: Order Comment: Speci men Type: BLOOD SPECIMEN Performed By: #### T EGHPP ####[facility] LABORATORYCLIA [id number] [address] Coagulation index TEG Qn (Bld) 1.2 Normal -4.6-3.2 [facility] Comment on above: Order Comment: Speci men Type: BLOOD SPECIMEN Result Comment: The Coagulation Index, a secondary parameter, is labeled by the road mender as for research use only and is used per the road mender's instructions. Its performance characteristics were determined by [facility] [place] in a manner consistent with CLIA requirements. This test has not been cleared by the U.S. Food and Drug Administration. Performed By: #### T EGHPP ####[facility] LABORATORYCLIA [id number] [address] Maximum clot firmness after addition of heparinase TEG (Bld) [Length] 64.0 mm Normal 51.0-75.0 [facility] Comment on above: Order Comment: Speci men Type: BLOOD SPECIMEN Performed By: #### T EGHPP ####[facility] LABORATORYCLIA [id number] [address] Vancomycin random [Mass/Vol] on 06-06-2021 Vancomycin [Mass/Vol] 17.4 ug/mL Normal 10.0-20.0 [facility] Comment on above: Order Comment: Speci men Type: BLOOD SPECIMEN Result Comment: Refe rence ranges and high/low indicator flags are provided as general guidelines only. The treating physician must determine appropriate target levels/dosing based on the specific clinical situation. Performed By: #### 4 091-5 ####[facility] LABORATORYCLIA [id number] [address] [place] [facility] Vancomycin [Mass/Vol] 13.5 ug/mL Normal 10.0-20.0 [facility] Comment on above: Order Comment: Speci men Type: BLOOD SPECIMEN Result Comment: Refe rence ranges and high/low indicator flags are provided as general guidelines only. The treating physician must determine appropriate target levels/dosing based on the specific clinical situation. Performed By: #### 4 091-5 ####[facility] LABORATORYCLIA [id number] [address] aPTT PPPon 06-06-2021 aPTT Coag (PPP) [Time] 27.8 s Normal 23.0-32.4 [facility] Comment on above: Order Comment: Speci men Type: BLOOD SPECIMEN Performed By: #### 3 4528-0, 87575-0 ####[facility] LABORATORYCLIA [id number] [address] [place] [facility] Basic metabolic 2000 panelon 06-05-2021 Anion gap [Moles/Vol] 11 mmol/L Normal 9-18 [facility] Comment on above: Order Comment: Speci men Type: BLOOD SPECIMEN Performed By: #### 1 9123-9, 66814-4, 2776- ####[facility] LABORATORYCLIA [id number] [address] [place] [facility] Calcium [Mass/Vol] 8.6 mg/dL Normal 8.5-10.2 [facility] Comment on above: Order Comment: Speci men Type: BLOOD SPECIMEN Performed By: #### 1 9123-9, 79700-8, 2776- ####[facility] LABORATORYCLIA [id number] [address] [place] [facility] Chloride [Moles/Vol] 108 mmol/L High 97-105 [facility] Comment on above: Order Comment: Speci men Type: BLOOD SPECIMEN Performed By: #### 1 9123-9, 79605-0, 2776- ####[facility] LABORATORYCLIA [id number] [address] [place] CO2 [Moles/Vol] 25 mmol/L Normal 22-30 [facility] Comment on above: Order Comment: Speci men Type: BLOOD SPECIMEN Performed By: #### 1 9123-9, 50057-8, 2776- ####[facility] LABORATORYCLIA [id number] [address] [place] Creatinine [Mass/Vol] 0.77 mg/dL Normal 0.73-1.22 [facility] Comment on above: Order Comment: Speci men Type: BLOOD SPECIMEN Performed By: #### 1 9123-9, 94765-5, 2776-05 ####[facility] [id number] [place] [address] [place] GFR/1.73 sq M.predicted [...] actual GFR. Performed By: #### 1 9123-9, 51677-4, 2776-05 ####[facility]ITAL[facility] [id number] [place] [address] [place] Glucose [Mass/Vol] 96 mg/dL Normal 74-99 [facility] Comment on above: Order Comment: Speci men Type: BLOOD SPECIMEN Result Comment: The [place] [employer] (ADA) provides guidance for cutoff [...] Standards of Medical Care in Diabetes 2016, [place] [employer]. Diabetes Care. 2016.39(Suppl 1). Performed By: #### 1 9123-9, 50395-5, 2776-05 ####[facility] LABORATORYCLIA [id number] [address] [place] [facility] Potassium [Moles/Vol] 3.9 mmol/L Normal 3.7-5.1 [facility] Comment on above: Order Comment: Speci men Type: BLOOD SPECIMEN Performed By: #### 1 9123-9, 94770-0, 2777-1 ####[facility] LABORATORYCLIA [id number] [address] Sodium [Moles/Vol] 144 mmol/L Normal 136-144 [facility] Comment on above: Order Comment: Speci men Type: BLOOD SPECIMEN Performed By: #### 1 9123-9, 33078-9, 2777-1 ####[facility] LABORATORYCLIA [id number] [address] Urea nitrogen [Mass/Vol] 26 mg/dL High 9-24 [facility] Comment on above: Order Comment: Speci men Type: BLOOD SPECIMEN Performed By: #### 1 9123-9, 88818-7, 2776- ####[facility] LABORATORYCLIA [id number] [address] CBC panel Auto (Bld)on 06-05 Erythrocyte distribution width (RBC) [Ratio] 15.9 % High 11.5-15.0 [facility] Comment on above: Order Comment: Speci men Type: BLOOD SPECIMEN Performed By: #### 5 8410-2 ####[facility] LABORATORYCLIA [id number] [address] Hematocrit (Bld) [Volume fraction] 39.6 % Normal 39.0-51.0 [facility] Comment on above: Order Comment: Speci men Type: BLOOD SPECIMEN Performed By: #### 5 8410-2 ####[facility] LABORATORYCLIA [id number] [address] [facility] Hemoglobin (Bld) [Mass/Vol] 12.3 g/dL Low 13.0-17.0 [facility] Comment on above: Order Comment: Speci men Type: BLOOD SPECIMEN Performed By: #### 5 8410-2 ####[facility] LABORATORYCLIA [id number] [address] MCH (RBC) [Entitic mass] 28.1 pg Normal 26.0-34.0 [facility] Comment on above: Order Comment: Speci men Type: BLOOD SPECIMEN Performed By: #### 5 8410-2 ####[facility] LABORATORYCLIA [id number] [address] MCHC (RBC) [Mass/Vol] 31.1 g/dL Normal 30.5-36.0 [facility] Comment on above: Order Comment: Speci men Type: BLOOD SPECIMEN Performed By: #### 5 8410-2 ####[facility] LABORATORYCLIA [id number] [address] MCV (RBC) [Entitic vol] 90.4 fL Normal 80.0-100.0 [facility] Comment on above: Order Comment: Speci men Type: BLOOD SPECIMEN Performed By: #### 5 8410-2 ####[facility] LABORATORYCLIA [id number] [address] Nucleated RBC (Bld) [#/Vol] 10*3/uL Normal <0.01 [facility] Comment on above: Order Comment: Speci men Type: BLOOD SPECIMEN Performed By: #### 5 8410-2 ####[facility] LABORATORYCLIA [id number] [address] Platelet mean volume (Bld) [Entitic vol] 10.5 fL Normal 9.0-12.7 [facility] Comment on above: Order Comment: Speci men Type: BLOOD SPECIMEN Performed By: #### 5 8410-2 ####[facility] LABORATORYCLIA [id number] [address] Platelets (Bld) [#/Vol] 224 10*3/uL Normal 150-400 [facility] Comment on above: Order Comment: Speci men Type: BLOOD SPECIMEN Performed By: #### 5 8410-2 ####[facility] LABORATORYCLIA [id number] [address] OF [facility] RBC (Bld) [#/Vol] 4.38 10*6/uL Normal 4.20-6.00 [facility] Comment on above: Order Comment: Speci men Type: BLOOD SPECIMEN Performed By: #### 5 8410-2 ####[facility] LABORATORYCLIA [id number] [address] WBC (Bld) [#/Vol] 9.66 10*3/uL Normal 3.70-11.00 [facility] Comment on above: Order Comment: Speci men Type: BLOOD SPECIMEN Performed By: #### 5 8410-2 ####[facility] LABORATORYCLIA [id number] [address] CONSULT PROGon 06-05-2021 CONSULT PROG Normal [facility] Gas and Carbon monoxide pane l (BldV)on 06-05-2021 Base excess Calc (BldV) [Moles/Vol] 1.8 mmol/L Normal 0-2 [facility] Comment on above: Order Comment: Speci men Type: VENOUS BLOOD SPECIMEN Performed By: #### 2 4344-4 ####[facility] LABORATORYCLIA [id number] [address] Body temperature 100.4 [degF] Normal [facility] Comment on above: Order Comment: Speci men Type: VENOUS BLOOD SPECIMEN Performed By: #### 2 4344-4 ####[facility] LABORATORYCLIA [id number] [address] CALCIUM IONIZED, PH CORRECTED 1.21 mmol/L Normal 1.08-1.30 [facility] Comment on above: Order Comment: Speci men Type: VENOUS BLOOD SPECIMEN Performed By: #### 2 4344-4 ####[facility] LABORATORYCLIA [id number] [address] Calcium.ionized (BldV) [Mass/Vol] 1.19 mmol/L Normal 1.08-1.30 [facility] Comment on above: Order Comment: Speci men Type: VENOUS BLOOD SPECIMEN Performed By: #### 2 4344-4 ####[facility] LABORATORYCLIA [id number] [address] Carboxyhemoglobin (BldV) [Mass fraction] 1.0 % Normal 0.0-2.0 [facility] Comment on above: Order Comment: Speci men Type: VENOUS BLOOD SPECIMEN Result Comment: Carb oxyhemoglobin Reference Range for Smokers: 2.0-8.0% Performed By: #### 2 4344-4 ####[facility] LABORATORYCLIA [id number] [address] CO2 (BldV) [Partial pressure] 41 mm[Hg] Low 42-55 [facility] Comment on above: Order Comment: Speci men Type: VENOUS BLOOD SPECIMEN Performed By: #### 2 4344-4 ####[facility] LABORATORYCLIA [id number] [address] CO2 [Moles/Vol] 23.4 mmol/L Low 25-29 [facility] Comment on above: Order Comment: Speci men Type: VENOUS BLOOD SPECIMEN Performed By: #### 2 4344-4 ####[facility] LABORATORYCLIA [id number] [address] CO2 adjusted to patient's actual temperature (BldV) [Partial pressure] 43 mmHg Normal 42-55 [facility] Comment on above: Order Comment: Speci men Type: VENOUS BLOOD SPECIMEN Performed By: #### 2 4344-4 ####[facility] LABORATORYCLIA [id number] [address] Glucose [Mass/Vol] 101 mg/dL Normal 60-105 [facility] Comment on above: Order Comment: Speci men Type: VENOUS BLOOD SPECIMEN Performed By: #### 2 4344-4 ####[facility] LABORATORYCLIA [id number] [address] STATES [facility] HCO3 (Bld) [Moles/Vol] 26.0 mmol/L Normal 24-28 [facility] Comment on above: Order Comment: Speci men Type: VENOUS BLOOD SPECIMEN Performed By: #### 2 4344-4 ####[facility]ORATORYCLIA [id number] [place], [place] [address] [place] [address] [facility] Hematocrit (Bld) [Volume fraction] 38.4 % Low 39.0-51.0 [facility] Comment on above: Order Comment: Speci men Type: VENOUS BLOOD SPECIMEN Performed By: #### 2 4344-4 ####[facility]ORATORYCLIA [id number] [address] Hemoglobin (Bld) [Mass/Vol] 12.5 g/dL Low 13.0-17.0 [facility] Comment on above: Order Comment: Speci men Type: VENOUS BLOOD SPECIMEN Performed By: #### 2 4344-4 ####[facility]ORATORYCLIA [id number] [address] Methemoglobin (Bld) [Mass fraction] % Normal 0.0-1.5 [facility] Comment on above: Order Comment: Speci men Type: VENOUS BLOOD SPECIMEN Performed By: #### 2 4344-4 ####[facility]ORATORYCLIA [id number] [address] [place] O2 THERAPY Ventilator Normal [facility] Comment on above: Order Comment: Speci men Type: VENOUS BLOOD SPECIMEN Performed By: #### 2 4344-4 ####[facility]ORATORYCLIA [id number] [place], [place] [address] [place] [address] Oxygen (BldV) [Partial pressure] 44 mm[Hg] Normal 35-45 [facility] Comment on above: Order Comment: Speci men Type: VENOUS BLOOD SPECIMEN Performed By: #### 2 4344-4 ####[facility]ORATORYCLIA [id number] [address] Oxygen adjusted to patient's actual temperature (BldV) [Partial pressure] 46.8 mmHg High 35-45 [facility] Comment on above: Order Comment: Speci men Type: VENOUS BLOOD SPECIMEN Performed By: #### 2 4344-4 ####[facility]ORATORYCLIA [id number] [address] Oxygen saturation in Blood 76.5 % Normal 60-85 [facility] Comment on above: Order Comment: Speci men Type: VENOUS BLOOD SPECIMEN Performed By: #### 2 4344-4 ####[facility]ORATORYCLIA [id number] [address] Oxyhemoglobin (BldV) [Mass fraction] 75 % Normal 60-85 [facility] Comment on above: Order Comment: Speci men Type: VENOUS BLOOD SPECIMEN Performed By: #### 2 4344-4 ####[facility]ORATORYCLIA [id number] [address] OF [facility] pH (BldV) 7.42 [pH] Normal 7.32-7.42 [facility] Comment on above: Order Comment: Speci men Type: VENOUS BLOOD SPECIMEN Performed By: #### 2 4344-4 ####[facility]ORATORYCLIA [id number] [address] pH adjusted to patient's actual temperature (BldV) 7.40 Normal 7.32-7.42 [facility] Comment on above: Order Comment: Speci men Type: VENOUS BLOOD SPECIMEN Performed By: #### 2 4344-4 ####[facility]ORATORYCLIA [id number] [address] [place] Potassium [Moles/Vol] 3.7 mmol/L Normal 3.5-5.0 [facility] Comment on above: Order Comment: Speci men Type: VENOUS BLOOD SPECIMEN Performed By: #### 2 4344-4 ####[facility]ORATORYCLIA [id number] [address] [place] Sodium [Moles/Vol] 141 mmol/L Normal 136-144 [facility] Comment on above: Order Comment: Speci men Type: VENOUS BLOOD SPECIMEN Performed By: #### 2 4344-4 ####[facility] LABORATORYCLIA [id number] [address] [place] Magnesium SerPl-mCncon 06-05 Magnesium [Mass/Vol] 2.3 mg/dL Normal 1.7-2.3 [facility] Comment on above: Order Comment: Speci men Type: BLOOD SPECIMEN Performed By: #### 1 9123-9, 69933-4, 2777-1 ####[facility] LABORATORYCLIA [id number] [address] [place] Phosphate SerPl-mCncon 06-05 Phosphate [Mass/Vol] 2.9 mg/dL Normal 2.7-4.8 [facility] Comment on above: Order Comment: Speci men Type: BLOOD SPECIMEN Performed By: #### 1 9123-9, 19260-3, 2777-1 ####[facility] LABORATORYCLIA [id number] [address] STATES [facility] Vancomycin random [Mass/Vol] on 06-05-2021 Vancomycin [Mass/Vol] 23.2 ug/mL High 10.0-20.0 [facility] Comment on above: Order Comment: Speci men Type: BLOOD SPECIMEN Result Comment: Refe rence ranges and high/low indicator flags are provided as general guidelines only. The treating physician must determine appropriate target levels/dosing based on the specific clinical situation. Performed By: #### 4 091-5 ####[facility] LABORATORYCLIA [id number] [place] [id number] [place] (1,3)-Q-I-FZVMNSmi 2 (1,3) B-D GLUCAN <31 Normal <60 [facility] Comment on above: Order Comment: Speci men Type: BLOOD SPECIMEN Performed By: #### B DGLUC ####[facility] LABCLIA [id number] [id number] [address] [place] (1,3) B-D GLUCAN, QUAL Negative Normal NEGAT [facility] Comment on above: Order Comment: Speci men Type: BLOOD SPECIMEN Result Comment: Cert ain fungi, such as the genus Cryptococcus which produces very low levels of (1,3)-zdjp-A-sxvkpt, may not result in serum (1,3)-ubqr-D-owmfrw sufficiently elevated so as to be detected by the assay. Infections with fungi of the order Mucorales such as Absidia, Mucor and Rhizopus which are not known to produce (1,3)-vvoz-B-qneaht, are also observed to yield low serum (1,3)-ltke-E-xjcscv titers.In addition, the yeast phase of Blastomyces dermatitidis produces little (1,3)-wgsf-S-zhelxb and may not be detected by the assay. Performed By: #### B DGLUC ####[facility] REFER[facility] LABCLIA [id number] [facility] [id number] [address] [place] ALLIED HEALTHon 06-04-2021 ALLIED HEALTH Normal [facility] ALLIED HEALTH Normal [facility] ARTERIAL BLOOD GASESon 06-04 Base excess Calc (Bld) [Moles/Vol] 3 mmol/L High 0-2 [facility] Comment on above: Order Comment: Speci men Type: ARTERIAL BLOOD SPECIMEN Performed By: #### A LLBG ####[facility] LABORATORYCLIA [id number] [address] [place] Body temperature 98.06 [degF] Normal [facility] Comment on above: Order Comment: Speci men Type: ARTERIAL BLOOD SPECIMEN Performed By: #### A LLBG ####[facility]ORATORYCLIA [id number] [address] [place] CALCIUM IONIZED, PH CORRECTED 1.19 mmol/L Normal 1.08-1.30 [facility] Comment on above: Order Comment: Speci men Type: ARTERIAL BLOOD SPECIMEN Performed By: #### A LLBG ####[facility] LABORATORYCLIA [id number] [place] [address] [place] Calcium.ionized (BldV) [Mass/Vol] 1.14 mmol/L Normal 1.08-1.30 [facility] Comment on above: Order Comment: Speci men Type: ARTERIAL BLOOD SPECIMEN Performed By: #### A LLBG ####[facility]ORY[facility]IA [id number] [address] [facility] Carboxyhemoglobin (BldA) [Mass fraction] 1.2 % Normal 0.0-2.0 [facility] Comment on above: Order Comment: Speci men Type: ARTERIAL BLOOD SPECIMEN Result Comment: Carb oxyhemoglobin Reference Range for Smokers: 2.0-8.0% Performed By: #### A LLBG ####[facility]ORYCLIA [id number] [address] CO2 (Bld) [Partial pressure] 35 mm Hg Low 36-46 [facility] Comment on above: Order Comment: Speci men Type: ARTERIAL BLOOD SPECIMEN Performed By: #### A LLBG ####[facility]IA [id number] [address] [place] CO2 [Moles/Vol] 23.2 mmol/L Normal 22-28 [facility] Comment on above: Order Comment: Speci men Type: ARTERIAL BLOOD SPECIMEN Performed By: #### A LLBG ####[facility]ORYCLIA [id number] [address] CO2 adjusted to patient's actual temperature (Bld) [Partial pressure] 34 mmHg Low 36-46 [facility] Comment on above: Order Comment: Speci men Type: ARTERIAL BLOOD SPECIMEN Performed By: #### A LLBG ####[facility]ORYCLIA [id number] [address] [place] Glucose [Mass/Vol] 115 mg/dL High 60-105 [facility] Comment on above: Order Comment: Speci men Type: ARTERIAL BLOOD SPECIMEN Performed By: #### A LLBG ####[facility]ORYCLIA [id number] [address] [place] HCO3 (Bld) [Moles/Vol] 26 mmol/L Normal 22-26 [facility] Comment on above: Order Comment: Speci men Type: ARTERIAL BLOOD SPECIMEN Performed By: #### A LLBG ####[facility]ORYCLIA [id number] [address] Hematocrit (Bld) [Volume fraction] 35.3 % Low 39.0-51.0 [facility] Comment on above: Order Comment: Speci men Type: ARTERIAL BLOOD SPECIMEN Performed By: #### A LLBG ####[facility]ORYCLIA [id number] [address] [facility] Hemoglobin (Bld) [Mass/Vol] 11.5 g/dL Low 13.0-17.0 [facility] Comment on above: Order Comment: Speci men Type: ARTERIAL BLOOD SPECIMEN Performed By: #### A LLBG ####[facility]ORATORYCLIA [id number] [address] Methemoglobin (Bld) [Mass fraction] % Normal 0.0-1.5 [facility] Comment on above: Order Comment: Speci men Type: ARTERIAL BLOOD SPECIMEN Performed By: #### A LLBG ####[facility]ORATORYCLIA [id number] [address] O2 THERAPY Ventilator Normal [facility] Comment on above: Order Comment: Speci men Type: ARTERIAL BLOOD SPECIMEN Performed By: #### A LLBG ####[facility]ORYCLIA [id number] [address] Oxygen (Bld) [Partial pressure] 66 mm Hg Low 85-95 [facility] Comment on above: Order Comment: Speci men Type: ARTERIAL BLOOD SPECIMEN Performed By: #### A LLBG ####[facility]ORYCLIA [id number] [address] Oxygen adjusted to patient's actual temperature (Bld) [Partial pressure] 64.3 mmHg Low 85-95 [facility] Comment on above: Order Comment: Speci men Type: ARTERIAL BLOOD SPECIMEN Performed By: #### A LLBG ####[facility] LABORATORYCLIA [id number] [address] OXYGEN SATURATION, ARTERIAL 95 % Normal 95-98 [facility] Comment on above: Order Comment: Speci men Type: ARTERIAL BLOOD SPECIMEN Performed By: #### A LLBG ####[facility]ORATORYCLIA [id number] [address] Oxyhemoglobin (BldA) [Mass fraction] 93 % Low 95-98 [facility] Comment on above: Order Comment: Speci men Type: ARTERIAL BLOOD SPECIMEN Performed By: #### A LLBG ####[facility]ORATORYCLIA [id number] [address] pH (Bld) 7.49 [pH] High 7.35-7.45 [facility] Comment on above: Order Comment: Speci men Type: ARTERIAL BLOOD SPECIMEN Performed By: #### A LLBG ####[facility]ORATORYCLIA [id number] [address] pH adjusted to patient's actual temperature (Bld) 7.49 High 7.35-7.45 [facility] Comment on above: Order Comment: Speci men Type: ARTERIAL BLOOD SPECIMEN Performed By: #### A LLBG ####[facility]ORATORYCLIA [id number] [address] Potassium [Moles/Vol] 2.8 mmol/L Low 3.5-5.0 [facility] Comment on above: Order Comment: Speci men Type: ARTERIAL BLOOD SPECIMEN Performed By: #### A LLBG ####[facility]ORYCLIA [id number] [address] Bas Metab 2000 Pnl SerPlon 0 06-04-2021 Sodium [Moles/Vol] 143 mmol/L Normal 136-144 [facility] Comment on above: Order Comment: Speci men Type: BLOOD SPECIMEN Performed By: #### 2 777-1, 01324-6, ####[facility]ORATORYCLIA [id number] [place], [place] [id number] [place] [address] Order Comment: Speci men Type: ARTERIAL BLOOD SPECIMEN Performed By: #### A LLBG ####[facility]ORATORYCLIA [id number] [place] [address] [facility] Basic metabolic 2000 panelon 06-04-2021 Anion gap [Moles/Vol] 11 mmol/L Normal 9-18 [facility] Comment on above: Order Comment: Speci men Type: BLOOD SPECIMEN Performed By: #### 2 777-1, , ####[facility]ORYCLIA [id number] [address] STATES [facility] Calcium [Mass/Vol] 8.5 mg/dL Normal 8.5-10.2 [facility] Comment on above: Order Comment: Speci men Type: BLOOD SPECIMEN Performed By: #### 2 777-1, , ####[facility]ATORYCLIA [id number] [address] [place] Chloride [Moles/Vol] 107 mmol/L High 97-105 [facility] Comment on above: Order Comment: Speci men Type: BLOOD SPECIMEN Performed By: #### 2 777-1, , ####[facility]ATORYCLIA [id number] [place], [place] [id number] [place] [address] [place] CO2 [Moles/Vol] 25 mmol/L Normal 22-30 [facility] Comment on above: Order Comment: Speci men Type: BLOOD SPECIMEN Performed By: #### 2 777-1, , ####[facility]ATORYCLIA [id number] [place], [place] [address] [place] [address] [place] Creatinine [Mass/Vol] 0.77 mg/dL Normal 0.73-1.22 [facility] Comment on above: Order Comment: Speci men Type: BLOOD SPECIMEN Performed By: #### 2 777-1, , 12980-1 ####[facility]ITAL[facility] [id number] [place] [address] [place] GFR/1.73 sq M.predicted [...] actual GFR. Performed By: #### 2 777-1, 69451-1, 79237-7 ####[facility]PITALIA [id number] [place] [id number] [place] Glucose [Mass/Vol] 107 mg/dL High 74-99 [facility] Comment on above: Order Comment: Speci men Type: BLOOD SPECIMEN Result Comment: The [place] [employer] (ADA) provides guidance for cutoff [...] Standards of Medical Care in Diabetes 2016, [place] [employer]. Diabetes Care. 2016.39(Suppl 1). Performed By: #### 2 777-1, 31527-2, 61899-3 ####[facility]PITALIA [id number] [address] Potassium [Moles/Vol] 3.1 mmol/L Low 3.7-5.1 [facility] Comment on above: Order Comment: Speci men Type: BLOOD SPECIMEN Performed By: #### 2 777-1, , 89888-5 ####[facility]ORATORYCLIA [id number] [address] Urea nitrogen [Mass/Vol] 19 mg/dL Normal 9-24 [facility] Comment on above: Order Comment: Speci men Type: BLOOD SPECIMEN Performed By: #### 2 777-1, , 78456-8 ####[facility]ORATORYCLIA [id number] [address] CBC panel Auto (Bld)on 06-04 Erythrocyte distribution width (RBC) [Ratio] 15.8 % High 11.5-15.0 [facility] Comment on above: Order Comment: Speci men Type: BLOOD SPECIMEN Performed By: #### 5 8410-2 ####[facility]ORATORYCLIA [id number] [address] Hematocrit (Bld) [Volume fraction] 36.9 % Low 39.0-51.0 [facility] Comment on above: Order Comment: Speci men Type: BLOOD SPECIMEN Performed By: #### 5 8410-2 ####[facility]ORATORYCLIA [id number] [address] Hemoglobin (Bld) [Mass/Vol] 11.2 g/dL Low 13.0-17.0 [facility] Comment on above: Order Comment: Speci men Type: BLOOD SPECIMEN Performed By: #### 5 8410-2 ####[facility]ORATORYCLIA [id number] [address] MCH (RBC) [Entitic mass] 27.3 pg Normal 26.0-34.0 [facility] Comment on above: Order Comment: Speci men Type: BLOOD SPECIMEN Performed By: #### 5 8410-2 ####[facility]ORATORYCLIA [id number] [address] MCHC (RBC) [Mass/Vol] 30.4 g/dL Low 30.5-36.0 [facility] Comment on above: Order Comment: Speci men Type: BLOOD SPECIMEN Performed By: #### 5 8410-2 ####[facility]ORATORYCLIA [id number] [address] MCV (RBC) [Entitic vol] 89.8 fL Normal 80.0-100.0 [facility] Comment on above: Order Comment: Speci men Type: BLOOD SPECIMEN Performed By: #### 5 8410-2 ####[facility]ORATORYCLIA [id number] [address] Nucleated RBC (Bld) [#/Vol] 10*3/uL Normal <0.01 [facility] Comment on above: Order Comment: Speci men Type: BLOOD SPECIMEN Performed By: #### 5 8410-2 ####[facility]ORATORYCLIA [id number] [address] Platelet mean volume (Bld) [Entitic vol] 10.7 fL Normal 9.0-12.7 [facility] Comment on above: Order Comment: Speci men Type: BLOOD SPECIMEN Performed By: #### 5 8410-2 ####[facility]ORATORYCLIA [id number] [address] Platelets (Bld) [#/Vol] 174 10*3/uL Normal 150-400 [facility] Comment on above: Order Comment: Speci men Type: BLOOD SPECIMEN Performed By: #### 5 8410-2 ####[facility]ORATORYCLIA [id number] [address] RBC (Bld) [#/Vol] 4.11 10*6/uL Low 4.20-6.00 [facility] Comment on above: Order Comment: Speci men Type: BLOOD SPECIMEN Performed By: #### 5 8410-2 ####[facility]ORATORYCLIA [id number] [address] WBC (Bld) [#/Vol] 8.29 10*3/uL Normal 3.70-11.00 [facility] Comment on above: Order Comment: Speci men Type: BLOOD SPECIMEN Performed By: #### 5 8410-2 ####[facility]ORATORYCLIA [id number] [address] CONSULT PROGon 06-04-2021 CONSULT PROG Normal [...] BLOOD SPECIMEN Performed By: #### 2 777-1, 70645-6, 61511-3 ####[facility]ORATORYCLIA [id number] [address] NT-proBNP SerPl-mCncon 06-04 Natriuretic peptide.B prohormone N-Terminal [Mass/Vol] 229 pg/mL High <125 [facility] Comment on above: Order Comment: Speci men Type: BLOOD SPECIMEN Performed By: #### 3 3762-6, 4091-5 ####[facility]ORATORYCLIA [id number] [address] Phosphate SerPl-mCncon 06-04 Phosphate [Mass/Vol] 2.0 mg/dL Low 2.7-4.8 [facility] Comment on above: Order Comment: Speci men Type: BLOOD SPECIMEN Performed By: #### 2 777-1, 89812-6, 15371-3 ####[facility]ORATORYCLIA [id number] [address] Vancomycin random [Mass/Vol] on 06-04-2021 Vancomycin [Mass/Vol] 35.2 ug/mL High 10.0-20.0 [facility] Comment on above: Order Comment: Speci men Type: BLOOD SPECIMEN Result Comment: Refe rence ranges and high/low indicator flags are provided as general guidelines only. The treating physician must determine appropriate target levels/dosing based on the specific clinical situation. Performed By: #### 3 3762-6, 4091-5 ####[facility]ORATORYCLIA [id number] [address] XR ABDOMEN 1V SUPINEon 06-04 XR ABDOMEN 1V SUPINE Normal [facility] ALLIED HEALTHon 06-03-2021 ALLIED HEALTH Normal [facility] ARTERIAL BLOOD GASESon 06-03 Base excess Calc (Bld) [Moles/Vol] 5 mmol/L High 0-2 [facility] Comment on above: Order Comment: Speci men Type: ARTERIAL BLOOD SPECIMEN Performed By: #### A LLBG ####[facility]ORATORYCLIA [id number] [address] Body temperature 99.5 [degF] Normal [facility] Comment on above: Order Comment: Speci men Type: ARTERIAL BLOOD SPECIMEN Performed By: #### A LLBG ####[facility]ORATORYCLIA [id number] [address] CALCIUM IONIZED, PH CORRECTED 1.18 mmol/L Normal 1.08-1.30 [facility] Comment on above: Order Comment: Speci men Type: ARTERIAL BLOOD SPECIMEN Performed By: #### A LLBG ####[facility]ORATORYCLIA [id number] [address] Calcium.ionized (BldV) [Mass/Vol] 1.16 mmol/L Normal 1.08-1.30 [facility] Comment on above: Order Comment: Speci men Type: ARTERIAL BLOOD SPECIMEN Performed By: #### A LLBG ####[facility]ORATORYCLIA [id number] [address] Carboxyhemoglobin (BldA) [Mass fraction] 1.2 % Normal 0.0-2.0 [facility] Comment on above: Order Comment: Speci men Type: ARTERIAL BLOOD SPECIMEN Result Comment: Carb oxyhemoglobin Reference Range for Smokers: 2.0-8.0% Performed By: #### A LLBG ####[facility]ORYCLIA [id number] [address] CO2 (Bld) [Partial pressure] 45 mm Hg Normal 36-46 [facility] Comment on above: Order Comment: Speci men Type: ARTERIAL BLOOD SPECIMEN Performed By: #### A LLBG ####[facility]ORATORYCLIA [id number] [address] CO2 [Moles/Vol] 26.9 mmol/L Normal 22-28 [facility] Comment on above: Order Comment: Speci men Type: ARTERIAL BLOOD SPECIMEN Performed By: #### A LLBG ####[facility]ORATORYCLIA [id number] [address] CO2 adjusted to patient's actual temperature (Bld) [Partial pressure] 47 mmHg High 36-46 [facility] Comment on above: Order Comment: Speci men Type: ARTERIAL BLOOD SPECIMEN Performed By: #### A LLBG ####[facility]ORATORYCLIA [id number] [address] Glucose [Mass/Vol] 141 mg/dL High 60-105 [facility] Comment on above: Order Comment: Speci men Type: ARTERIAL BLOOD SPECIMEN Performed By: #### A LLBG ####[facility]ORYCLIA [id number] [address] HCO3 (Bld) [Moles/Vol] 30 mmol/L High 22-26 [facility] Comment on above: Order Comment: Speci men Type: ARTERIAL BLOOD SPECIMEN Performed By: #### A LLBG ####[facility]ORYCLIA [id number] [address] Hematocrit (Bld) [Volume fraction] 35.8 % Low 39.0-51.0 [facility] Comment on above: Order Comment: Speci men Type: ARTERIAL BLOOD SPECIMEN Performed By: #### A LLBG ####[facility]ORYCLIA [id number] [address] Hemoglobin (Bld) [Mass/Vol] 11.6 g/dL Low 13.0-17.0 [facility] Comment on above: Order Comment: Speci men Type: ARTERIAL BLOOD SPECIMEN Performed By: #### A LLBG ####[facility]ORYCLIA [id number] [address] Methemoglobin (Bld) [Mass fraction] % Normal 0.0-1.5 [facility] Comment on above: Order Comment: Speci men Type: ARTERIAL BLOOD SPECIMEN Performed By: #### A LLBG ####[facility]ORYCLIA [id number] [address] O2 THERAPY Ventilator Normal [facility] Comment on above: Order Comment: Speci men Type: ARTERIAL BLOOD SPECIMEN Performed By: #### A LLBG ####[facility]ORYCLIA [id number] [address] [facility] Oxygen (Bld) [Partial pressure] 69 mm Hg Low 85-95 [facility] Comment on above: Order Comment: Speci men Type: ARTERIAL BLOOD SPECIMEN Performed By: #### A LLBG ####[facility]ORYCLIA [id number] [address] [place] Oxygen adjusted to patient's actual temperature (Bld) [Partial pressure] 70.8 mmHg Low 85-95 [facility] Comment on above: Order Comment: Speci men Type: ARTERIAL BLOOD SPECIMEN Performed By: #### A LLBG ####[facility]ORYCLIA [id number] [address] [place] OXYGEN SATURATION, ARTERIAL 94 % Low 95-98 [facility] Comment on above: Order Comment: Speci men Type: ARTERIAL BLOOD SPECIMEN Performed By: #### A LLBG ####[facility]ATORYCLIA [id number] [address] Oxyhemoglobin (BldA) [Mass fraction] 93 % Low 95-98 [facility] Comment on above: Order Comment: Speci men Type: ARTERIAL BLOOD SPECIMEN Performed By: #### A LLBG ####[facility]ORATORYCLIA [id number] [address] [place] pH (Bld) 7.43 [pH] Normal 7.35-7.45 [facility] Comment on above: Order Comment: Speci men Type: ARTERIAL BLOOD SPECIMEN Performed By: #### A LLBG ####[facility]ATORYCLIA [id number] [address] pH adjusted to patient's actual temperature (Bld) 7.43 Normal 7.35-7.45 [facility] Comment on above: Order Comment: Speci men Type: ARTERIAL BLOOD SPECIMEN Performed By: #### A LLBG ####[facility]ATORYCLIA [id number] [address] [facility] Potassium [Moles/Vol] 3.1 mmol/L Low 3.5-5.0 [facility] Comment on above: Order Comment: Speci men Type: ARTERIAL BLOOD SPECIMEN Performed By: #### A LLBG ####[facility]ATORYCLIA [id number] [address] [facility] Sodium [Moles/Vol] 145 mmol/L High 136-144 [facility] Comment on above: Order Comment: Speci men Type: ARTERIAL BLOOD SPECIMEN Performed By: #### A LLBG ####[facility]ORATORYCLIA [id number] [address] [facility] ASPERGILLUS GALACTOMANNAN SE RUMon 06-03-2021 Galactomannan Ag IA Ql Negative Normal NEGAT [facility] Comment on above: Order Comment: Speci men [...] is suspected. Performed By: #### A MIMI ####[facility] LABCLIA [id number] [place] [facility] [address] [address] [place] Galactomannan Ag IA Qn <0.50 Normal [facility] Comment on above: Order Comment: Speci men Type: BLOOD SPECIMEN Result Comment: Inde x Values are Interpreted as Follows:Negative specimens <0.50Positive specimens >=0.50 Performed By: #### A SGAKATHRYN ####[facility] LABCLIA [id number] [place] [facility] [address] [address] [place] Basic metabolic 2000 panelon 06-03-2021 Anion gap [Moles/Vol] 8 mmol/L Low 9-18 [facility] Comment on above: Order Comment: Speci men Type: BLOOD SPECIMEN Performed By: #### 1 9123-9, 2777-1, 68732-6 ####[facility]ORATORYCLIA [id number] [place] [address] [place] Calcium [Mass/Vol] 8.0 mg/dL Low 8.5-10.2 [facility] Comment on above: Order Comment: Speci men Type: BLOOD SPECIMEN Performed By: #### 1 9123-9, 2777-1, 20953-2 ####[facility]ATORYCLIA [id number] [place] [address] [place] Chloride [Moles/Vol] 110 mmol/L High 97-105 [facility] Comment on above: Order Comment: Speci men Type: BLOOD SPECIMEN Performed By: #### 1 9123-9, 2777-1, 20700-6 ####[facility]ATORYCLIA [id number] [place] [address] [place] CO2 [Moles/Vol] 28 mmol/L Normal 22-30 [facility] Comment on above: Order Comment: Speci men Type: BLOOD SPECIMEN Performed By: #### 1 9123-9, 2777-1, 97160-7 ####[facility]ORATORYCLIA [id number] [place] [address] [place] Creatinine [Mass/Vol] 0.75 mg/dL Normal 0.73-1.22 [facility] Comment on above: Order Comment: Speci men Type: BLOOD SPECIMEN Performed By: #### 1 9123-9, 2777-, 01610-5 ####[facility]ATORYCLIA [id number] [place] [address] [place] GFR/1.73 sq M.predicted [...] GFR. Performed By: #### 1 9123-9, 2777-, 90969-8 ####[facility]ORATORYCLIA [id number] [place] [address] [place] Glucose [Mass/Vol] 141 mg/dL High 74-99 [facility] Comment on above: Order Comment: [facility] Type: BLOOD SPECIMEN Result Comment: The [place] Diabetes [employer] (ADA) provides guidance for cutoff [...] Standards of Medical Care in Diabetes 2016, [place] [employer]. Diabetes Care. 2016.39(Suppl 1). Performed By: #### 1 9123-9, 2777-1, 93580-5 ####[facility]ATORYCLIA [id number] [address] Potassium [Moles/Vol] 3.3 mmol/L Low 3.7-5.1 [facility] Comment on above: Order Comment: Speci men Type: BLOOD SPECIMEN Performed By: #### 1 9123-9, 27711-04, 79683-6 ####[facility]ATORYCLIA [id number] [address] Sodium [Moles/Vol] 146 mmol/L High 136-144 [facility] Comment on above: Order Comment: Speci men Type: BLOOD SPECIMEN Performed By: #### 1 9123-9, 27711-04, 78560-9 ####[facility]ATORYCLIA [id number] [address] Urea nitrogen [Mass/Vol] 10 mg/dL Normal 9-24 [facility] Comment on above: Order Comment: Speci men Type: BLOOD SPECIMEN Performed By: #### 1 9123-9, 2777, 12010-3 ####[facility]ORYCLIA [id number] [address] CASE MANAGEMon 06-03-2021 CASE MANAGEM Normal [facility] CBC panel Auto (Bld)on 06-03 Erythrocyte distribution width (RBC) [Ratio] 15.6 % High 11.5-15.0 [facility] Comment on above: Order Comment: Speci men Type: BLOOD SPECIMEN Performed By: #### 5 8410-2 ####[facility]ORYCLIA [id number] [address] Hematocrit (Bld) [Volume fraction] 36.9 % Low 39.0-51.0 [facility] Comment on above: Order Comment: Speci men Type: BLOOD SPECIMEN Performed By: #### 5 8410-2 ####[facility]ORYCLIA [id number] [address] Hemoglobin (Bld) [Mass/Vol] 11.1 g/dL Low 13.0-17.0 [facility] Comment on above: Order Comment: Speci men Type: BLOOD SPECIMEN Performed By: #### 5 8410-2 ####[facility]ATORYCLIA [id number] [address] MCH (RBC) [Entitic mass] 27.0 pg Normal 26.0-34.0 [facility] Comment on above: Order Comment: Speci men Type: BLOOD SPECIMEN Performed By: #### 5 8410-2 ####[facility]ATORYCLIA [id number] [address] MCHC (RBC) [Mass/Vol] 30.1 g/dL Low 30.5-36.0 [facility] Comment on above: Order Comment: Speci men Type: BLOOD SPECIMEN Performed By: #### 5 8410-2 ####[facility]ATORYCLIA [id number] [address] MCV (RBC) [Entitic vol] 89.8 fL Normal 80.0-100.0 [facility] Comment on above: Order Comment: Speci men Type: BLOOD SPECIMEN Performed By: #### 5 8410-2 ####[facility]ATORYCLIA [id number] [address] Nucleated RBC (Bld) [#/Vol] 10*3/uL Normal <0.01 [facility] Comment on above: Order Comment: Speci men Type: BLOOD SPECIMEN Performed By: #### 5 8410-2 ####[facility]ATORYCLIA [id number] [address] Platelet mean volume (Bld) [Entitic vol] 10.5 fL Normal 9.0-12.7 [facility] Comment on above: Order Comment: Speci men Type: BLOOD SPECIMEN Performed By: #### 5 8410-2 ####[facility]ATORYCLIA [id number] [address] Platelets (Bld) [#/Vol] 196 10*3/uL Normal 150-400 [facility] Comment on above: Order Comment: Speci men Type: BLOOD SPECIMEN Performed By: #### 5 8410-2 ####[facility]ATORYCLIA [id number] [address] RBC (Bld) [#/Vol] 4.11 10*6/uL Low 4.20-6.00 [facility] Comment on above: Order Comment: Speci men Type: BLOOD SPECIMEN Performed By: #### 5 8410-2 ####[facility]ATORYCLIA [id number] [address] WBC (Bld) [#/Vol] 8.18 10*3/uL Normal 3.70-11.00 [facility] Comment on above: Order Comment: Speci men Type: BLOOD SPECIMEN Performed By: #### 5 8410-2 ####[facility]ATORYCLIA [id number] [address] CONSULTon 06-03-2021 CONSULT Normal [facility] CONSULT PROGon 06-03-2021 CONSULT PROG Normal [facility] Gas and Carbon monoxide pane l (BldV)on 06-03-2021 Base excess Calc (BldV) [Moles/Vol] 1.4 mmol/L Normal 0-2 [facility] Comment on above: Order Comment: Speci men Type: VENOUS BLOOD SPECIMEN Performed By: #### 2 4344-4 ####[facility]ATORYCLIA [id number] [address] Body temperature 98.42 [degF] Normal [facility] Comment on above: Order Comment: Speci men Type: VENOUS BLOOD SPECIMEN Performed By: #### 2 4344-4 ####[facility]ORATORYCLIA [id number] [address] CALCIUM IONIZED, PH CORRECTED 1.09 mmol/L Normal 1.08-1.30 [facility] Comment on above: Order Comment: Speci men Type: VENOUS BLOOD SPECIMEN Performed By: #### 2 4344-4 ####[facility]ORYCLIA [id number] [address] Calcium.ionized (BldV) [Mass/Vol] 1.12 mmol/L Normal 1.08-1.30 [facility] Comment on above: Order Comment: Speci men Type: VENOUS BLOOD SPECIMEN Performed By: #### 2 4344-4 ####[facility]ORYCLIA [id number] [address] Carboxyhemoglobin (BldV) [Mass fraction] 1.7 % Normal 0.0-2.0 [facility] Comment on above: Order Comment: Speci men Type: VENOUS BLOOD SPECIMEN Result Comment: Carb oxyhemoglobin Reference Range for Smokers: 2.0-8.0% Performed By: #### 2 4344-4 ####[facility]ORYCLIA [id number] [address] CO2 (BldV) [Partial pressure] 50 mm[Hg] Normal 42-55 [facility] Comment on above: Order Comment: Speci men Type: VENOUS BLOOD SPECIMEN Performed By: #### 2 4344-4 ####[facility]ORYCLIA [id number] [address] [place] CO2 [Moles/Vol] 24.9 mmol/L Low 25-29 [facility] Comment on above: Order Comment: Speci men Type: VENOUS BLOOD SPECIMEN Performed By: #### 2 4344-4 ####[facility]ORYCLIA [id number] [address] CO2 adjusted to patient's actual temperature (BldV) [Partial pressure] 50 mmHg Normal 42-55 [facility] Comment on above: Order Comment: Speci men Type: VENOUS BLOOD SPECIMEN Performed By: #### 2 4344-4 ####[facility] LABORATORYCLIA [id number] [address] [place] FIO2 30 % Normal [facility] Comment on above: Order Comment: Speci men Type: VENOUS BLOOD SPECIMEN Performed By: #### 2 4344-4 ####[facility]ORYCLIA [id number] [address] Glucose [Mass/Vol] 191 mg/dL High 60-105 [facility] Comment on above: Order Comment: Speci men Type: VENOUS BLOOD SPECIMEN Performed By: #### 2 4344-4 ####[facility]ORYCLIA [id number] [address] HCO3 (Bld) [Moles/Vol] 27.1 mmol/L Normal 24-28 [facility] Comment on above: Order Comment: Speci men Type: VENOUS BLOOD SPECIMEN Performed By: #### 2 4344-4 ####[facility]ORYCLIA [id number] [address] Hematocrit (Bld) [Volume fraction] 36.2 % Low 39.0-51.0 [facility] Comment on above: Order Comment: Speci men Type: VENOUS BLOOD SPECIMEN Performed By: #### 2 4344-4 ####[facility]ORYCLIA [id number] [address] Hemoglobin (Bld) [Mass/Vol] 11.8 g/dL Low 13.0-17.0 [facility] Comment on above: Order Comment: Speci men Type: VENOUS BLOOD SPECIMEN Performed By: #### 2 4344-4 ####[facility]ATORYCLIA [id number] [address] INHALED TIDAL VOLUME (ML) 530 Normal [facility] Comment on above: Order Comment: Speci men Type: VENOUS BLOOD SPECIMEN Performed By: #### 2 4344-4 ####[facility]ATORYCLIA [id number] [place] [address] [facility] Methemoglobin (Bld) [Mass fraction] % Normal 0.0-1.5 [facility] Comment on above: Order Comment: Speci men Type: VENOUS BLOOD SPECIMEN Performed By: #### 2 4344-4 ####[facility]ATORYCLIA [id number] [place] [address] [facility] [place] O2 THERAPY Ventilator Normal [facility] Comment on above: Order Comment: Speci men Type: VENOUS BLOOD SPECIMEN Performed By: #### 2 4344-4 ####[facility]ATORYCLIA [id number] [place], [place] [address] [place] [address] Oxygen (BldV) [Partial pressure] 69 mm[Hg] High 35-45 [facility] Comment on above: Order Comment: Speci men Type: VENOUS BLOOD SPECIMEN Performed By: #### 2 4344-4 ####[facility]ATORYCLIA [id number] [place], [place] [address] [place] [address] Oxygen adjusted to patient's actual temperature (BldV) [Partial pressure] 68.8 mmHg High 35-45 [facility] Comment on above: Order Comment: Speci men Type: VENOUS BLOOD SPECIMEN Performed By: #### 2 4344-4 ####[facility]ATORYCLIA [id number] [place], [place] [address] [place] [address] Oxygen saturation in Blood 92.4 % High 60-85 [facility] Comment on above: Order Comment: Speci men Type: VENOUS BLOOD SPECIMEN Performed By: #### 2 4344-4 ####[facility]ATORYCLIA [id number] [place], [place] [address] [place] [address] Oxyhemoglobin (BldV) [Mass fraction] 90 % High 60-85 [facility] Comment on above: Order Comment: Speci men Type: VENOUS BLOOD SPECIMEN Performed By: #### 2 4344-4 ####[facility]ATORYCLIA [id number] [place] [facility], [address] PEEP/CPAP 8 cmH2O Normal [facility] Comment on above: Order Comment: Speci men Type: VENOUS BLOOD SPECIMEN Performed By: #### 2 4344-4 ####[facility]ORYCLIA [id number] [address] pH (BldV) 7.35 [pH] Normal 7.32-7.42 [facility] Comment on above: Order Comment: Speci men Type: VENOUS BLOOD SPECIMEN Performed By: #### 2 4344-4 ####[facility]ORYCLIA [id number] [address] pH adjusted to patient's actual temperature (BldV) 7.35 Normal 7.32-7.42 [facility] Comment on above: Order Comment: Speci men Type: VENOUS BLOOD SPECIMEN Performed By: #### 2 4344-4 ####[facility]ORYCLIA [id number] [address] Potassium [Moles/Vol] 3.6 mmol/L Normal 3.5-5.0 [facility] Comment on above: Order Comment: Speci men Type: VENOUS BLOOD SPECIMEN Performed By: #### 2 4344-4 ####[facility]ORYCLIA [id number] [address] SET VENTILATOR RESPIRATORY RATE (BPM) 18 BPM Normal [facility] Comment on above: Order Comment: Speci men Type: VENOUS BLOOD SPECIMEN Performed By: #### 2 4344-4 ####[facility]ATORYCLIA [id number] [address] Sodium [Moles/Vol] 141 mmol/L Normal 136-144 [facility] Comment on above: Order Comment: Speci men Type: VENOUS BLOOD SPECIMEN Performed By: #### 2 4344-4 ####[facility]ATORYCLIA [id number] [address] OF [facility] HIV 1+2 Ab IA Qlon 2 HIV 1 and 2 Ab IA.rapid Nom Normal [facility] Comment on above: Order Comment: Speci men Type: BLOOD SPECIMEN Result Comment: Test not indicated. Performed By: #### 3 1201-7, TOXMG ####[facility]ATORYCLIA [id number] [address] HIV 1+2 Ab+HIV1 p24 Ag IA Ql Non-Reactive Normal Nonreactive [facility] Comment on above: Order Comment: Speci men Type: BLOOD SPECIMEN Result Comment: [place] Rev. Code 3701.243(E): This information has been [...] diagnoses. Performed By: #### 3 1201-7, TOXMG ####[facility]ATORYCLIA [id number] [address] HIVINT Normal [facility] Comment on above: Order Comment: Speci men Type: BLOOD SPECIMEN Result Comment: No e vidence of HIV-1 or HIV-2 infection. Should recent infection be suspected, repeat testing may be considered 2-3 weeks after this draw. Performed By: #### 3 1201-7, TOXMG ####[facility]ATORYCLIA [id number] [address] [place] Magnesium SerPl-mCncon 06-03 Magnesium [Mass/Vol] 1.9 mg/dL Normal 1.7-2.3 [facility] Comment on above: Order Comment: Speci men Type: BLOOD SPECIMEN Performed By: #### 1 9123-9, 2777-1, 84363-4 ####[facility]ATORYCLIA [id number] [address] [place] NUTRITIONon 06-03-2021 NUTRITION Normal [facility] Phosphate SerPl-mCncon 06-03 Phosphate [Mass/Vol] 1.9 mg/dL Low 2.7-4.8 [facility] Comment on above: Order Comment: Speci men Type: BLOOD SPECIMEN Performed By: #### 1 9123-9, 2777-1, 34078-4 ####[facility]ATORYCLIA [id number] [address] TOXOPLASMOSIS IGM AND IGG AB on [...] IU/mL Performed By: #### 3 1201-7, TOXMG ####[facility]ATORYCLIA [id number] [address] TOXO IGM QUAL Negative Normal Negative [facility] Comment on above: Order Comment: Speci men Type: BLOOD SPECIMEN Result Comment: No s erological evidence of recent exposure to Toxoplasma gondii.Negative <0.9 IndexEquivocal 0.9-0.99 IndexPositive >=1.0 Index Performed By: #### 3 1201-7, TOXMG ####[facility]ATORYCLIA [id number] [address] [place] US DVT LOWER BILon 2 US DVT LOWER RAINER Normal [facility] XR CHEST 1V FRONTALon 2021 XR CHEST 1V FRONTAL Normal [facility] ARTERIAL BLOOD GASESon 06-02 Base excess Calc (Bld) [Moles/Vol] 2 mmol/L Normal 0-2 [facility] Comment on above: Order Comment: Speci men Type: ARTERIAL BLOOD SPECIMEN Performed By: #### A LLBG ####[facility]ATORYCLIA [id number] [address] Body temperature 99.32 [degF] Normal [facility] Comment on above: Order Comment: Speci men Type: ARTERIAL BLOOD SPECIMEN Performed By: #### A LLBG ####[facility]ORYCLIA [id number] [address] CALCIUM IONIZED, PH CORRECTED 1.15 mmol/L Normal 1.08-1.30 [facility] Comment on above: Order Comment: Speci men Type: ARTERIAL BLOOD SPECIMEN Performed By: #### A LLBG ####[facility]ORYCLIA [id number] [address] Calcium.ionized (BldV) [Mass/Vol] 1.13 mmol/L Normal 1.08-1.30 [facility] Comment on above: Order Comment: Speci men Type: ARTERIAL BLOOD SPECIMEN Performed By: #### A LLBG ####[facility]ATORYCLIA [id number] [address] Carboxyhemoglobin (BldA) [Mass fraction] 1.4 % Normal 0.0-2.0 [facility] Comment on above: Order Comment: Speci men Type: ARTERIAL BLOOD SPECIMEN Result Comment: Carb oxyhemoglobin Reference Range for Smokers: 2.0-8.0% Performed By: #### A LLBG ####[facility]ATORYCLIA [id number] [address] CO2 (Bld) [Partial pressure] 39 mm Hg Normal 36-46 [facility] Comment on above: Order Comment: Speci men Type: ARTERIAL BLOOD SPECIMEN Performed By: #### A LLBG ####[facility]ATORYCLIA [id number] [address] CO2 [Moles/Vol] 23.4 mmol/L Normal 22-28 [facility] Comment on above: Order Comment: Speci men Type: ARTERIAL BLOOD SPECIMEN Performed By: #### A LLBG ####[facility]ATORYCLIA [id number] [address] CO2 adjusted to patient's actual temperature (Bld) [Partial pressure] 40 mmHg Normal 36-46 [facility] Comment on above: Order Comment: Speci men Type: ARTERIAL BLOOD SPECIMEN Performed By: #### A LLBG ####[facility]ATORYCLIA [id number] [address] Glucose [Mass/Vol] 156 mg/dL High 60-105 [facility] Comment on above: Order Comment: Speci men Type: ARTERIAL BLOOD SPECIMEN Performed By: #### A LLBG ####[facility]ORYCLIA [id number] [address] HCO3 (Bld) [Moles/Vol] 26 mmol/L Normal 22-26 [facility] Comment on above: Order Comment: Speci men Type: ARTERIAL BLOOD SPECIMEN Performed By: #### A LLBG ####[facility]ORYCLIA [id number] [address] Hematocrit (Bld) [Volume fraction] 33.9 % Low 39.0-51.0 [facility] Comment on above: Order Comment: Speci men Type: ARTERIAL BLOOD SPECIMEN Performed By: #### A LLBG ####[facility]ORYCLIA [id number] [address] Hemoglobin (Bld) [Mass/Vol] 11.0 g/dL Low 13.0-17.0 [facility] Comment on above: Order Comment: Speci men Type: ARTERIAL BLOOD SPECIMEN Performed By: #### A LLBG ####[facility]ORYCLIA [id number] [address] Methemoglobin (Bld) [Mass fraction] % Normal 0.0-1.5 [facility] Comment on above: Order Comment: Speci men Type: ARTERIAL BLOOD SPECIMEN Performed By: #### A LLBG ####[facility]ORYCLIA [id number] [address] O2 THERAPY Ventilator Normal [facility] Comment on above: Order Comment: Speci men Type: ARTERIAL BLOOD SPECIMEN Performed By: #### A LLBG ####[facility]ATORYCLIA [id number] [place] [address] [place] Oxygen (Bld) [Partial pressure] 70 mm Hg Low 85-95 [facility] Comment on above: Order Comment: Speci men Type: ARTERIAL BLOOD SPECIMEN Performed By: #### A LLBG ####[facility]ATORYCLIA [id number] [place], [place] [address] [place] [address] Oxygen adjusted to patient's actual temperature (Bld) [Partial pressure] 72.2 mmHg Low 85-95 [facility] Comment on above: Order Comment: Speci men Type: ARTERIAL BLOOD SPECIMEN Performed By: #### A LLBG ####[facility]ORYCLIA [id number] [address] OXYGEN SATURATION, ARTERIAL 96 % Normal 95-98 [facility] Comment on above: Order Comment: Speci men Type: ARTERIAL BLOOD SPECIMEN Performed By: #### A LLBG ####[facility]ORYCLIA [id number] [address] Oxyhemoglobin (BldA) [Mass fraction] 94 % Low 95-98 [facility] Comment on above: Order Comment: Speci men Type: ARTERIAL BLOOD SPECIMEN Performed By: #### A LLBG ####[facility]ORYCLIA [id number] [address] [place] pH (Bld) 7.43 [pH] Normal 7.35-7.45 [facility] Comment on above: Order Comment: Speci men Type: ARTERIAL BLOOD SPECIMEN Performed By: #### A LLBG ####[facility]ORYCLIA [id number] [address] pH adjusted to patient's actual temperature (Bld) 7.42 Normal 7.35-7.45 [facility] Comment on above: Order Comment: Speci men Type: ARTERIAL BLOOD SPECIMEN Performed By: #### A LLBG ####[facility]ORYCLIA [id number] [address] [place] Potassium [Moles/Vol] 2.6 mmol/L Low 3.5-5.0 [facility] Comment on above: Order Comment: Speci men Type: ARTERIAL BLOOD SPECIMEN Performed By: #### A LLBG ####[facility]ORYCLIA [id number] [address] Sodium [Moles/Vol] 142 mmol/L Normal 136-144 [facility] Comment on above: Order Comment: Speci men Type: ARTERIAL BLOOD SPECIMEN Performed By: #### A LLBG ####[facility]ORYCLIA [id number] [address] Ammonia Plas-sCncon 06-02-19 22 Ammonia (P) [Moles/Vol] 20 umol/L Normal 16-60 [facility] Comment on above: Order Comment: Speci men Type: BLOOD SPECIMEN Performed By: #### 1 6362-6 ####[facility]ORYCLIA [id number] [address] Bacteria CSF Culton 06-02-19 22 Bacteria identified Cx Nom (CSF) CULTURE, CSF: No growth 14 days GRAM STAIN: No organisms seen Rare Polymorphonuclear leukocytes Gram stain performed on cytospun specimen. Normal [facility] Comment on above: Performed By: #### 6 06-4 ####[facility]ORYCLIA [id number] [address] Basic metabolic 2000 panelon 06-02-2021 Anion gap [Moles/Vol] 10 mmol/L Normal 9-18 [facility] Comment on above: Order Comment: Speci men Type: BLOOD SPECIMEN Performed By: #### 2 4321-2, , 2776-05 ####[facility]ATORYCLIA [id number] [address] STATES [facility] Calcium [Mass/Vol] 8.1 mg/dL Low 8.5-10.2 [facility] Comment on above: Order Comment: Speci men Type: BLOOD SPECIMEN Performed By: #### 2 4321-2, , 2776-05 ####[facility]ATORYCLIA [id number] [place] [address] [place] Chloride [Moles/Vol] 108 mmol/L High 97-105 [facility] Comment on above: Order Comment: Speci men Type: BLOOD SPECIMEN Performed By: #### 2 4321-2, , 2776-05 ####[facility]ATORYCLIA [id number] [place] [address] [place] CO2 [Moles/Vol] 24 mmol/L Normal 22-30 [facility] Comment on above: Order Comment: Speci men Type: BLOOD SPECIMEN Performed By: #### 2 1-2, , 2776-05 ####[facility]ORYCLIA [id number] [address] STATES [place] [facility] Creatinine [Mass/Vol] 0.78 mg/dL Normal 0.73-1.22 [facility] Comment on above: Order Comment: Speci men Type: BLOOD SPECIMEN Performed By: #### 2 1-2, , 2776-05 ####[facility]ATORYCLIA [id number] [address] [place] GFR/1.73 sq M.predicted [...] 4321-2, , 2776-05 ####[facility]ORYCLIA [id number] [address] [place] Glucose [Mass/Vol] 162 mg/dL High 74-99 [facility] Comment on above: Order Comment: Speci men Type: BLOOD SPECIMEN Result Comment: The [place] [employer] (ADA) provides guidance for cutoff [...] Standards of Medical Care in Diabetes 2016, [place] [employer]. Diabetes Care. 2016.39(Suppl 1). Performed By: #### 2 1-2, , 2776-05 ####[facility]ATORYCLIA [id number] [address] [place] Potassium [Moles/Vol] 2.7 mmol/L Low 3.7-5.1 [facility] Comment on above: Order Comment: Speci men Type: BLOOD SPECIMEN Performed By: #### 2 4320-2, , 2776-05 ####[facility]ORYCLIA [id number] [address] STATES [facility] Sodium [Moles/Vol] 142 mmol/L Normal 136-144 [facility] Comment on above: Order Comment: Speci men Type: BLOOD SPECIMEN Performed By: #### 2 1-2, , 2776-05 ####[facility]ATORYCLIA [id number] [place] [address] [place] Urea nitrogen [Mass/Vol] 12 mg/dL Normal 9-24 [facility] Comment on above: Order Comment: Speci men Type: BLOOD SPECIMEN Performed By: #### 2 1-2, , 2776-05 ####[facility]ORYCLIA [id number] [address] STATES [facility] CBC panel Auto (Bld)on 06-02 Erythrocyte distribution width (RBC) [Ratio] 15.0 % Normal 11.5-15.0 [facility] Comment on above: Order Comment: Speci men Type: BLOOD SPECIMEN Performed By: #### 5 8410-2 ####[facility]ATORYCLIA [id number] [address] Hematocrit (Bld) [Volume fraction] 34.3 % Low 39.0-51.0 [facility] Comment on above: Order Comment: Speci men Type: BLOOD SPECIMEN Performed By: #### 5 8410-2 ####[facility]ORYCLIA [id number] [address] Hemoglobin (Bld) [Mass/Vol] 10.3 g/dL Low 13.0-17.0 [facility] Comment on above: Order Comment: Speci men Type: BLOOD SPECIMEN Performed By: #### 5 8410-2 ####[facility]ORYCLIA [id number] [address] MCH (RBC) [Entitic mass] 27.0 pg Normal 26.0-34.0 [facility] Comment on above: Order Comment: Speci men Type: BLOOD SPECIMEN Performed By: #### 5 8410-2 ####[facility]ORYCLIA [id number] [address] MCHC (RBC) [Mass/Vol] 30.0 g/dL Low 30.5-36.0 [facility] Comment on above: Order Comment: Speci men Type: BLOOD SPECIMEN Performed By: #### 5 8410-2 ####[facility]ORYCLIA [id number] [address] MCV (RBC) [Entitic vol] 90.0 fL Normal 80.0-100.0 [facility] Comment on above: Order Comment: Speci men Type: BLOOD SPECIMEN Performed By: #### 5 8410-2 ####[facility]ORYCLIA [id number] [address] Nucleated RBC (Bld) [#/Vol] 10*3/uL Normal <0.01 [facility] Comment on above: Order Comment: Speci men Type: BLOOD SPECIMEN Performed By: #### 5 8410-2 ####[facility]ORYCLIA [id number] [address] Platelet mean volume (Bld) [Entitic vol] 10.2 fL Normal 9.0-12.7 [facility] Comment on above: Order Comment: Speci men Type: BLOOD SPECIMEN Performed By: #### 5 8410-2 ####[facility]ORYCLIA [id number] [address] Platelets (Bld) [#/Vol] 194 10*3/uL Normal 150-400 [facility] Comment on above: Order Comment: Speci men Type: BLOOD SPECIMEN Performed By: #### 5 8410-2 ####[facility]ORYCLIA [id number] [address] RBC (Bld) [#/Vol] 3.81 10*6/uL Low 4.20-6.00 [facility] Comment on above: Order Comment: Speci men Type: BLOOD SPECIMEN Performed By: #### 5 8410-2 ####[facility]ORYCLIA [id number] [address] WBC (Bld) [#/Vol] 9.22 10*3/uL Normal 3.70-11.00 [facility] Comment on above: Order Comment: Speci men Type: BLOOD SPECIMEN Performed By: #### 5 8410-2 ####[facility]ATORYCLIA [id number] [address] CONSULT PROGon 06-02-2021 CONSULT PROG Normal [facility] CSF MANUAL DIFFon 06-02-2021 DIF TTL, CSF 25 cells counted Normal [facility] Comment on above: Order Comment: Speci men Type: CEREBROSPINAL FLUID Performed By: #### 3 [id number], [id number], [id number] ####[facility]ATORYCLIA [id number] [place], [place] [id number] [place] [address] OF [place] LYMPH%, CSF 4 % Low 50-90 [facility] Comment on above: Order Comment: Speci men Type: CEREBROSPINAL FLUID Performed By: #### 3 4563-7, [id number], [id number] ####[facility]ORYCLIA [id number] [address] STATES [place] MACRO%, CSF 4 % High <1 [facility] Comment on above: Order Comment: Speci men Type: CEREBROSPINAL FLUID Performed By: #### 3 4563-7, [id number], [id number] ####[facility]ORYCLIA [id number] [address] [place] MONO%, CSF 20 % Normal 10-50 [facility] Comment on above: Order Comment: Speci men Type: CEREBROSPINAL FLUID Performed By: #### 3 4563-7, [id number], [id number] ####[facility]ORYCLIA [id number] [address] [place] NEUT%, CSF 72 % High 0-3 [facility] Comment on above: Order Comment: Speci men Type: CEREBROSPINAL FLUID Performed By: #### 3 4563-7, [id number], [id number] ####[facility]ORYCLIA [id number] [address] CSF PATHOLOGIST INTERP (LAB REFLEX ORDER-NO BILL)on 06-02-2021 CSF STAFF REVIEW Negative [facility] Comment on above: Order Comment: Speci men Type: CEREBROSPINAL FLUID Performed By: #### 3 4563-7, [id number], [id number] ####[facility]ORYCLIA [id number] [address] Pathologist name Reviewed by Amador Stevens MD [facility] Comment on above: Order Comment: Speci men Type: CEREBROSPINAL FLUID Performed By: #### 3 4563-7, [id number], [id number] ####[facility]ORATORYCLIA [id number] [address] Cell count panel (CSF)on Clarity (CSF) Clear Normal Clear [facility] Comment on above: Order Comment: Speci men Type: CEREBROSPINAL FLUID Performed By: #### 3 4563-7, [id number], [id number] ####[facility]ATORYCLIA [id number] [address] Clarity (Unsp spec) Not Indicated Normal Clear [facility] Comment on above: Order Comment: Speci men Type: CEREBROSPINAL FLUID Performed By: #### 3 4563-7, [id number], [id number] ####[facility]ATORYCLIA [id number] [address] Color (CSF) Colorless Normal Colorless [facility] Comment on above: Order Comment: Speci men Type: CEREBROSPINAL FLUID Performed By: #### 3 4563-7, [id number], ZFQ3679 ####[facility]ATORYCLIA [id number] [address] Color (Spun CSF) Not Indicated Normal Colorless [facility] Comment on above: Order Comment: Speci men Type: CEREBROSPINAL FLUID Performed By: #### 3 4563-7, [id number], [id number] ####[facility]ATORYCLIA [id number] [address] CSF TUBE NUMBER Sterile Container Normal [facility] Comment on above: Order Comment: Speci men Type: CEREBROSPINAL FLUID Performed By: #### 3 4563-7, BXQ4992, JOP7488 ####[facility]ORYCLIA [id number] [address] RBC Manual cnt (CSF) [#/Vol] 117 cells/uL High 0-5 [facility] Comment on above: Order Comment: Speci men Type: CEREBROSPINAL FLUID Performed By: #### 3 4563-7, [id number], [id number] ####[facility]ORYCLIA [id number] [address] STATES [place] [facility] WBC Manual cnt (CSF) [#/Vol] 1 cells/uL Normal 0-5 [facility] Comment on above: Order Comment: Speci men Type: CEREBROSPINAL FLUID Performed By: #### 3 4563-7, [id number], [id number] ####[facility]ATORYCLIA [id number] [address] [place] Glucose CSF-mCncon 2 [...] insert V 12.0 [place]]. [employer], [place], [place]. September 2015. 2. Michelle Moore, Loki HGarfield (2015). Chapter 7: Glucose and Lactate. Marianela Alcocer al.(eds.), Cerebrospinal Fluid in Clinical Neurology. [place]: [employer]. Performed By: #### 2 342-4 ####[facility]ORATORYCLIA [id number] [address] HEPATIC FUNCTION PNLon 06-02 Albumin [Mass/Vol] 3.2 g/dL Low 3.9-4.9 [facility] Comment on above: Order Comment: Speci men Type: BLOOD SPECIMEN Performed By: #### [place], [address]-9 ####[facility]ATORYCLIA [id number] [address] [place] ALP [Catalytic activity/Vol] 67 U/L Normal 38-113 [facility] Comment on above: Order Comment: Speci men Type: BLOOD SPECIMEN Performed By: #### H FP, 22754-4 ####[facility]ORATORYCLIA [id number] [address] [place] [facility] ALT With P-5'-P [Catalytic activity/Vol] 16 U/L Normal 10-54 [facility] Comment on above: Order Comment: Speci men Type: BLOOD SPECIMEN Performed By: #### [place], [address]-7 ####[employer] Twitter DashboardVENITA GENERAL LABORATORYCLIA [id number] [address] AST With P-5'-P [Catalytic activity/Vol] 25 U/L Normal 14-40 [facility] Comment on above: Order Comment: Speci men Type: BLOOD SPECIMEN Performed By: #### [place] KATHIE, 70918-5 ####[facility]ATORYCLIA [id number] [address] Bilirubin [Mass/Vol] 0.2 mg/dL Normal 0.2-1.3 [facility] Comment on above: Order Comment: Speci men Type: BLOOD SPECIMEN Performed By: #### [place] KATHIE, ####[facility]ORATORYCLIA [id number] [address] Bilirubin.conjugated [Mass/Vol] mg/dL Normal <0.2 [facility] Comment on above: Order Comment: Speci men Type: BLOOD SPECIMEN Performed By: #### [place] KATHIE, 25245-6 ####[employer] Twitter DashboardVENITA GENERAL LABORATORYCLIA [id number] [address] Protein [Mass/Vol] 5.8 g/dL Low 6.3-8.0 [facility] Comment on above: Order Comment: Speci men Type: BLOOD SPECIMEN Performed By: #### [place], [address]-1 ####[employer] Twitter DashboardVENITA [facility] LABORATORYCLIA [id number] [address] MRI BRAIN WO/W IVCONon 06-02 MRI BRAIN WO/W IVCON Normal [facility] Magnesium SerPl-mCncon 06-02 Magnesium [Mass/Vol] 2.0 mg/dL Normal 1.7-2.3 [facility] Comment on above: Order Comment: Speci men Type: BLOOD SPECIMEN Performed By: #### 2 4321-2, 10932-9, 2777-1 ####[facility]ORATORYCLIA [id number] [address] NT-proBNP SerPl-ncon 06-02 Natriuretic peptide.B prohormone N-Terminal [Mass/Vol] 296 pg/mL High <125 [facility] Comment on above: Order Comment: Speci men Type: BLOOD SPECIMEN Performed By: #### H FP, 64[address]-1 ####[facility]ORATORYCLIA [id number] [address] OF [facility] POTASSIUM BLDon 06-02-2021 Potassium [Moles/Vol] 3.2 mmol/L Low 3.7-5.1 [facility] Comment on above: Order Comment: Speci men Type: BLOOD SPECIMEN Performed By: #### K 1 ####[facility]ORATORYCLIA [id number] [address] STATES [place] [facility] Phosphate SerPl-[facility] Healthcareon 06-02 Phosphate [Mass/Vol] 2.1 mg/dL Low 2.7-4.8 [facility] Comment on above: Order Comment: Speci men Type: BLOOD SPECIMEN Performed By: #### 2 4321-2, 61300-4, 2777-1 ####[facility]ORATORYCLIA [id number] [address] [place] Vancomycin random [Mass/Vol] [...] clinical situation. Performed By: #### 4 091-5 ####[facility]ORATORYCLIA [id number] [address] [place] ALLIED HEALTHon 06-01-2021 ALLIED HEALTH Normal [facility] ALLIED HEALTH Normal [facility] ALLIED HEALTH Normal [facility] ARTERIAL BLOOD GASESon 06-01 Base excess Calc (Bld) [Moles/Vol] 1 mmol/L Normal 0-2 [facility] Comment on above: Order Comment: Speci men Type: ARTERIAL BLOOD SPECIMEN Performed By: #### A LLBG ####[facility]ORATORYCLIA [id number] [address] Body temperature 97.52 [degF] Normal [facility] Comment on above: Order Comment: Speci men Type: ARTERIAL BLOOD SPECIMEN Performed By: #### A LLBG ####[facility]ORATORYCLIA [id number] [address] CALCIUM IONIZED, PH CORRECTED 1.13 mmol/L Normal 1.08-1.30 [facility] Comment on above: Order Comment: Speci men Type: ARTERIAL BLOOD SPECIMEN Performed By: #### A LLBG ####[facility]ATORYCLIA [id number] [address] Calcium.ionized (BldV) [Mass/Vol] 1.12 mmol/L Normal 1.08-1.30 [facility] Comment on above: Order Comment: Speci men Type: ARTERIAL BLOOD SPECIMEN Performed By: #### A LLBG ####[facility]ATORYCLIA [id number] [address] Carboxyhemoglobin (BldA) [Mass fraction] 1.6 % Normal 0.0-2.0 [facility] Comment on above: Order Comment: Speci men Type: ARTERIAL BLOOD SPECIMEN Result Comment: Carb oxyhemoglobin Reference Range for Smokers: 2.0-8.0% Performed By: #### A LLBG ####[facility]ATORYCLIA [id number] [address] CO2 (Bld) [Partial pressure] 41 mm Hg Normal 36-46 [facility] Comment on above: Order Comment: Speci men Type: ARTERIAL BLOOD SPECIMEN Performed By: #### A LLBG ####[facility]ORATORYCLIA [id number] [address] CO2 [Moles/Vol] 23.0 mmol/L Normal 22-28 [facility] Comment on above: Order Comment: Speci men Type: ARTERIAL BLOOD SPECIMEN Performed By: #### A LLBG ####[facility]ATORYCLIA [id number] [address] CO2 adjusted to patient's actual temperature (Bld) [Partial pressure] 40 mmHg Normal 36-46 [facility] Comment on above: Order Comment: Speci men Type: ARTERIAL BLOOD SPECIMEN Performed By: #### A LLBG ####[facility]ATORYCLIA [id number] [address] [place] FIO2 40 % Normal [facility] Comment on above: Order Comment: Speci men Type: ARTERIAL BLOOD SPECIMEN Performed By: #### A LLBG ####[facility]ATORYCLIA [id number] [address] Glucose [Mass/Vol] 127 mg/dL High 60-105 [facility] Comment on above: Order Comment: Speci men Type: ARTERIAL BLOOD SPECIMEN Performed By: #### A LLBG ####[facility]ORYCLIA [id number] [address] HCO3 (Bld) [Moles/Vol] 25 mmol/L Normal 22-26 [facility] Comment on above: Order Comment: Speci men Type: ARTERIAL BLOOD SPECIMEN Performed By: #### A LLBG ####[facility]ATORYCLIA [id number] [address] OF [place] Hematocrit (Bld) [Volume fraction] 33.7 % Low 39.0-51.0 [facility] Comment on above: Order Comment: Speci men Type: ARTERIAL BLOOD SPECIMEN Performed By: #### A LLBG ####[facility]ORYCLIA [id number] [address] Hemoglobin (Bld) [Mass/Vol] 10.9 g/dL Low 13.0-17.0 [facility] Comment on above: Order Comment: Speci men Type: ARTERIAL BLOOD SPECIMEN Performed By: #### A LLBG ####[facility]ORYCLIA [id number] [address] [place] INHALED TIDAL VOLUME (ML) 500 Normal [facility] Comment on above: Order Comment: Speci men Type: ARTERIAL BLOOD SPECIMEN Performed By: #### A LLBG ####[facility]ORYCLIA [id number] [address] INVASIVE VENTILATOR MODE PRVC=Pressure Regulated Volume Control Normal [facility] Comment on above: Order Comment: Speci men Type: ARTERIAL BLOOD SPECIMEN Performed By: #### A LLBG ####[facility]ORYCLIA [id number] [address] [place] Methemoglobin (Bld) [Mass fraction] % Normal 0.0-1.5 [facility] Comment on above: Order Comment: Speci men Type: ARTERIAL BLOOD SPECIMEN Performed By: #### A LLBG ####[facility]ORYCLIA [id number] [address] [place] O2 THERAPY Ventilator Normal [facility] Comment on above: Order Comment: Speci men Type: ARTERIAL BLOOD SPECIMEN Performed By: #### A LLBG ####[facility]ORYCLIA [id number] [address] [place] Oxygen (Bld) [Partial pressure] 64 mm Hg Low 85-95 [facility] Comment on above: Order Comment: Speci men Type: ARTERIAL BLOOD SPECIMEN Performed By: #### A LLBG ####[facility]ORYCLIA [id number] [address] [place] Oxygen adjusted to patient's actual temperature (Bld) [Partial pressure] 61.8 mmHg Low 85-95 [facility] Comment on above: Order Comment: Speci men Type: ARTERIAL BLOOD SPECIMEN Performed By: #### A LLBG ####[facility]ORYCLIA [id number] [address] [place] OXYGEN SATURATION, ARTERIAL 94 % Low 95-98 [facility] Comment on above: Order Comment: Speci men Type: ARTERIAL BLOOD SPECIMEN Performed By: #### A LLBG ####[facility]ORYCLIA [id number] [address] Oxyhemoglobin (BldA) [Mass fraction] 92 % Low 95-98 [facility] Comment on above: Order Comment: Speci men Type: ARTERIAL BLOOD SPECIMEN Performed By: #### A LLBG ####[facility]ORYCLIA [id number] [address] PEEP/CPAP 5 cmH2O Normal [facility] Comment on above: Order Comment: Speci men Type: ARTERIAL BLOOD SPECIMEN Performed By: #### A LLBG ####[facility]ORYCLIA [id number] [address] pH (Bld) 7.40 [pH] Normal 7.35-7.45 [facility] Comment on above: Order Comment: Speci men Type: ARTERIAL BLOOD SPECIMEN Performed By: #### A LLBG ####[facility]ORYCLIA [id number] [address] pH adjusted to patient's actual temperature (Bld) 7.41 Normal 7.35-7.45 [facility] Comment on above: Order Comment: Speci men Type: ARTERIAL BLOOD SPECIMEN Performed By: #### A LLBG ####[facility]ORYCLIA [id number] [address] Potassium [Moles/Vol] 3.1 mmol/L Low 3.5-5.0 [facility] Comment on above: Order Comment: Speci men Type: ARTERIAL BLOOD SPECIMEN Performed By: #### A LLBG ####[facility]ORYCLIA [id number] [address] SET VENTILATOR RESPIRATORY RATE (BPM) 18 BPM Normal [facility] Comment on above: Order Comment: Speci men Type: ARTERIAL BLOOD SPECIMEN Performed By: #### A LLBG ####[facility]ORYCLIA [id number] [address] Sodium [Moles/Vol] 141 mmol/L Normal 136-144 [facility] Comment on above: Order Comment: Speci men Type: ARTERIAL BLOOD SPECIMEN Performed By: #### A LLBG ####[facility]ORATORYCLIA [id number] [address] BASE DEFICIT, ARTERIAL -1.0 mmol/L Normal -2-0 A [facility] Comment on above: Order Comment: Speci men Type: ARTERIAL BLOOD SPECIMEN Performed By: #### A LLBG ####[facility]ATORYCLIA [id number] [address] Body temperature 98.24 [degF] Normal [facility] Comment on above: Order Comment: Speci men Type: ARTERIAL BLOOD SPECIMEN Performed By: #### A LLBG ####[facility]ATORYCLIA [id number] [address] CALCIUM IONIZED, PH CORRECTED 1.08 mmol/L Normal 1.08-1.30 [facility] Comment on above: Order Comment: Speci men Type: ARTERIAL BLOOD SPECIMEN Performed By: #### A LLBG ####[facility]ATORYCLIA [id number] [address] Calcium.ionized (BldV) [Mass/Vol] 1.15 mmol/L Normal 1.08-1.30 [facility] Comment on above: Order Comment: Speci men Type: ARTERIAL BLOOD SPECIMEN Performed By: #### A LLBG ####[facility]ATORYCLIA [id number] [address] Carboxyhemoglobin (BldA) [Mass fraction] 1.4 % Normal 0.0-2.0 [facility] Comment on above: Order Comment: Speci men Type: ARTERIAL BLOOD SPECIMEN Result Comment: Carb oxyhemoglobin Reference Range for Smokers: 2.0-8.0% Performed By: #### A LLBG ####[facility]ORATORYCLIA [id number] [place] [address] [place] CO2 (Bld) [Partial pressure] 59 mm Hg High 36-46 [facility] Comment on above: Order Comment: Speci men Type: ARTERIAL BLOOD SPECIMEN Performed By: #### A LLBG ####[facility]ORYCLIA [id number] [address] CO2 [Moles/Vol] 24.5 mmol/L Normal 22-28 [facility] Comment on above: Order Comment: Speci men Type: ARTERIAL BLOOD SPECIMEN Performed By: #### A LLBG ####[facility]ORYCLIA [id number] [address] CO2 adjusted to patient's actual temperature (Bld) [Partial pressure] 58 mmHg High 36-46 [facility] Comment on above: Order Comment: Speci men Type: ARTERIAL BLOOD SPECIMEN Performed By: #### A LLBG ####[facility]ORYCLIA [id number] [address] FIO2 40 % Normal [facility] Comment on above: Order Comment: Speci men Type: ARTERIAL BLOOD SPECIMEN Performed By: #### A LLBG ####[facility]ORYCLIA [id number] [address] Glucose [Mass/Vol] 128 mg/dL High 60-105 [facility] Comment on above: Order Comment: Speci men Type: ARTERIAL BLOOD SPECIMEN Performed By: #### A LLBG ####[facility]ORYCLIA [id number] [address] [place] HCO3 (Bld) [Moles/Vol] 26 mmol/L Normal 22-26 [facility] Comment on above: Order Comment: Speci men Type: ARTERIAL BLOOD SPECIMEN Performed By: #### A LLBG ####[facility]CLIA [id number] [address] Hematocrit (Bld) [Volume fraction] 35.6 % Low 39.0-51.0 [facility] Comment on above: Order Comment: Speci men Type: ARTERIAL BLOOD SPECIMEN Performed By: #### A LLBG ####[facility]ORYCLIA [id number] [address] [place] Hemoglobin (Bld) [Mass/Vol] 11.5 g/dL Low 13.0-17.0 [facility] Comment on above: Order Comment: Speci men Type: ARTERIAL BLOOD SPECIMEN Performed By: #### A LLBG ####[facility]ORYCLIA [id number] [address] INHALED TIDAL VOLUME (ML) 500 Normal [facility] Comment on above: Order Comment: Speci men Type: ARTERIAL BLOOD SPECIMEN Performed By: #### A LLBG ####[facility]ORYCLIA [id number] [address] INVASIVE VENTILATOR MODE PRVC=Pressure Regulated Volume Control [facility] Comment on above: Order Comment: Speci men Type: ARTERIAL BLOOD SPECIMEN Performed By: #### A LLBG ####[facility]ORYCLIA [id number] [address] Methemoglobin (Bld) [Mass fraction] % Normal 0.0-1.5 [facility] Comment on above: Order Comment: Speci men Type: ARTERIAL BLOOD SPECIMEN Performed By: #### A LLBG ####[facility]ORYCLIA [id number] [address] [place] O2 THERAPY Ventilator Normal [facility] Comment on above: Order Comment: Speci men Type: ARTERIAL BLOOD SPECIMEN Performed By: #### A LLBG ####[facility]ORYCLIA [id number] [address] [place] Oxygen (Bld) [Partial pressure] 88 mm Hg Normal 85-95 [facility] Comment on above: Order Comment: Speci men Type: ARTERIAL BLOOD SPECIMEN Performed By: #### A LLBG ####[facility]ORYCLIA [id number] [address] [place] Oxygen adjusted to patient's actual temperature (Bld) [Partial pressure] 86.5 mmHg Normal 85-95 [facility] Comment on above: Order Comment: Speci men Type: ARTERIAL BLOOD SPECIMEN Performed By: #### A LLBG ####[facility]ORYCLIA [id number] [address] OXYGEN SATURATION, ARTERIAL 95 % Normal 95-98 [facility] Comment on above: Order Comment: Speci men Type: ARTERIAL BLOOD SPECIMEN Performed By: #### A LLBG ####[facility]CLIA [id number] [address] Oxyhemoglobin (BldA) [Mass fraction] 93 % Low 95-98 [facility] Comment on above: Order Comment: Speci men Type: ARTERIAL BLOOD SPECIMEN Performed By: #### A LLBG ####[facility]ORYCLIA [id number] [address] PEEP/CPAP 5 cmH2O Normal [facility] Comment on above: Order Comment: Speci men Type: ARTERIAL BLOOD SPECIMEN Performed By: #### A LLBG ####[facility]ORYCLIA [id number] [address] pH (Bld) 7.27 [pH] Low 7.35-7.45 [facility] Comment on above: Order Comment: Speci men Type: ARTERIAL BLOOD SPECIMEN Performed By: #### A LLBG ####[facility]ORYCLIA [id number] [address] pH adjusted to patient's actual temperature (Bld) 7.28 Low 7.35-7.45 [facility] Comment on above: Order Comment: Speci men Type: ARTERIAL BLOOD SPECIMEN Performed By: #### A LLBG ####[facility]ORYCLIA [id number] [address] Potassium [Moles/Vol] 3.3 mmol/L Low 3.5-5.0 [facility] Comment on above: Order Comment: Speci men Type: ARTERIAL BLOOD SPECIMEN Performed By: #### A LLBG ####[facility]ORYCLIA [id number] [address] SET VENTILATOR RESPIRATORY RATE (BPM) 14 BPM Normal [facility] Comment on above: Order Comment: Speci men Type: ARTERIAL BLOOD SPECIMEN Performed By: #### A LLBG ####[facility]ATORYCLIA [id number] [address] Sodium [Moles/Vol] 141 mmol/L Normal 136-144 [facility] Comment on above: Order Comment: Speci men Type: ARTERIAL BLOOD SPECIMEN Performed By: #### A LLBG ####[facility]ORATORYCLIA [id number] [address] Bacteria CSF Culton 06-01-19 22 Bacteria identified Cx Nom (CSF) CULTURE, CSF: No growth 14 days GRAM STAIN: No organisms seen Rare Polymorphonuclear leukocytes Moderate Red Blood Cells Gram stain performed on cytospun specimen. Normal [facility] Comment on above: Performed By: #### 6 06-4 ####[facility]ORATORYCLIA [id number] [address] [place] Bacteria Spec Resp Culton Bacteria identified Respiratory culture Nom (Unsp spec) CULTURE, RESPIRATORY: No growth 2 days GRAM STAIN: No organisms seen No Polymorphonuclear Leukocytes Normal [facility] Comment on above: Performed By: #### 3 2355-0 ####[facility]ATORYCLIA [id number] [address] OF [facility] Basic metabolic 2000 panelon 06-01-2021 Anion gap [Moles/Vol] 8 mmol/L Low 9-18 [facility] Comment on above: Order Comment: Speci men Type: BLOOD SPECIMEN Performed By: #### 2 4321-2, 18620-3, 2777-1 ####[facility]ORATORYCLIA [id number] [address] Calcium [Mass/Vol] 7.8 mg/dL Low 8.5-10.2 [facility] Comment on above: Order Comment: Speci men Type: BLOOD SPECIMEN Performed By: #### 2 4321-2, , 2776-05 ####[facility]ATORYCLIA [id number] [address] STATES [facility] Chloride [Moles/Vol] 109 mmol/L High 97-105 [facility] Comment on above: Order Comment: Speci men Type: BLOOD SPECIMEN Performed By: #### 2 1-2, , 2776-05 ####[facility]ATORYCLIA [id number] [address] STATES [facility] CO2 [Moles/Vol] 26 mmol/L Normal 22-30 [facility] Comment on above: Order Comment: Speci men Type: BLOOD SPECIMEN Performed By: #### 2 1-2, , 2776-05 ####[facility]ATORYCLIA [id number] [address] STATES [facility] Creatinine [Mass/Vol] 0.82 mg/dL Normal 0.73-1.22 [facility] Comment on above: Order Comment: Speci men Type: BLOOD SPECIMEN Performed By: #### 2 4320-2, , 2776-05 ####[facility]ATORYCLIA [id number] [address] STATES [place] GFR/1.73 sq M.predicted [...] Performed By: #### 2 1-2, , 2776-05 ####[facility]ORATORYCLIA [id number] [place] [address] [place] Glucose [Mass/Vol] 105 mg/dL High 74-99 [facility] Comment on above: Order Comment: Speci men Type: BLOOD SPECIMEN Result Comment: The [place] [employer] (ADA) provides guidance for cutoff [...] Standards of Medical Care in Diabetes 2016, [place] [employer]. Diabetes Care. 2016.39(Suppl 1). Performed By: #### 2 4320-2, , 2776-05 ####[facility] LABORATORYCLIA [id number] [place] [address] [place] Potassium [Moles/Vol] 3.8 mmol/L Normal 3.7-5.1 [facility] Comment on above: Order Comment: Speci men Type: BLOOD SPECIMEN Performed By: #### 2 4320-2, , 2776-05 ####[facility]ORATORYCLIA [id number] [place] [address] [place] Sodium [Moles/Vol] 143 mmol/L Normal 136-144 [facility] Comment on above: Order Comment: Speci men Type: BLOOD SPECIMEN Performed By: #### 2 4320-2, , 2776-05 ####[facility] LABORATORYCLIA [id number] [address] [place] Urea nitrogen [Mass/Vol] 15 mg/dL Normal 9-24 [facility] Comment on above: Order Comment: Speci men Type: BLOOD SPECIMEN Performed By: #### 2 4320-2, , 2777-1 ####[facility]ATORYCLIA [id number] [address] CBC panel Auto (Bld)on 06-01 Erythrocyte distribution width (RBC) [Ratio] 15.4 % High 11.5-15.0 [facility] Comment on above: Order Comment: Speci men Type: BLOOD SPECIMEN Performed By: #### 5 8410-2 ####[facility]ATORYCLIA [id number] [address] Hematocrit (Bld) [Volume fraction] 38.4 % Low 39.0-51.0 [facility] Comment on above: Order Comment: Speci men Type: BLOOD SPECIMEN Performed By: #### 5 8410-2 ####[facility]ATORYCLIA [id number] [address] Hemoglobin (Bld) [Mass/Vol] 11.1 g/dL Low 13.0-17.0 [facility] Comment on above: Order Comment: Speci men Type: BLOOD SPECIMEN Performed By: #### 5 8410-2 ####[facility]ORATORYCLIA [id number] [address] MCH (RBC) [Entitic mass] 26.9 pg Normal 26.0-34.0 [facility] Comment on above: Order Comment: Speci men Type: BLOOD SPECIMEN Performed By: #### 5 8410-2 ####[facility]ATORYCLIA [id number] [address] MCHC (RBC) [Mass/Vol] 28.9 g/dL Low 30.5-36.0 [facility] Comment on above: Order Comment: Speci men Type: BLOOD SPECIMEN Performed By: #### 5 8410-2 ####[facility]ATORYCLIA [id number] [address] MCV (RBC) [Entitic vol] 93.2 fL Normal 80.0-100.0 [facility] Comment on above: Order Comment: Speci men Type: BLOOD SPECIMEN Performed By: #### 5 8410-2 ####[facility]ATORYCLIA [id number] [address] Nucleated RBC (Bld) [#/Vol] 10*3/uL Normal <0.01 [facility] Comment on above: Order Comment: Speci men Type: BLOOD SPECIMEN Performed By: #### 5 8410-2 ####[facility]ATORYCLIA [id number] [address] Platelet mean volume (Bld) [Entitic vol] 10.2 fL Normal 9.0-12.7 [facility] Comment on above: Order Comment: Speci men Type: BLOOD SPECIMEN Performed By: #### 5 8410-2 ####[facility]ATORYCLIA [id number] [address] Platelets (Bld) [#/Vol] 231 10*3/uL Normal 150-400 [facility] Comment on above: Order Comment: Speci men Type: BLOOD SPECIMEN Performed By: #### 5 8410-2 ####[facility]ORYCLIA [id number] [address] RBC (Bld) [#/Vol] 4.12 10*6/uL Low 4.20-6.00 [facility] Comment on above: Order Comment: Speci men Type: BLOOD SPECIMEN Performed By: #### 5 8410-2 ####[facility]ATORYCLIA [id number] [address] [facility] WBC (Bld) [#/Vol] 10.99 10*3/uL Normal 3.70-11.00 [facility] Comment on above: Order Comment: Speci men Type: BLOOD SPECIMEN Performed By: #### 5 8410-2 ####[facility]ATORYCLIA [id number] [address] [facility] CONSULT PROGon 06-01-2021 CONSULT PROG Normal [facility] CSF MANUAL DIFFon 06-01-2021 DIF TTL, CSF 100 cells counted Normal [facility] Comment on above: Order Comment: Speci men Type: CEREBROSPINAL FLUID Performed By: #### 3 4563-7, [id number] ####[facility]ATORYCLIA [id number] [place], [place] [address] [place] [address] LYMPH%, CSF 11 % Low 50-90 [facility] Comment on above: Order Comment: Speci men Type: CEREBROSPINAL FLUID Performed By: #### 3 4563-7, [id number] ####[facility]ATORYCLIA [id number] [address] [place] MONO%, CSF 10 % Normal 10-50 [facility] Comment on above: Order Comment: Speci men Type: CEREBROSPINAL FLUID Performed By: #### 3 4563-7, [id number] ####[facility]ORYCLIA [id number] [address] NEUT%, CSF 79 % High 0-3 [facility] Comment on above: Order Comment: Speci men Type: CEREBROSPINAL FLUID Performed By: #### 3 4563-7, [id number] ####[facility]ATORYCLIA [id number] [address] BRAIN WO IVCONon 06-01-19 CT BRAIN WO IVCON Normal [facility] Cell count panel (CSF)on Clarity (CSF) Clear Normal Clear [facility] Comment on above: Order Comment: Speci men Type: CEREBROSPINAL FLUID Performed By: #### 3 4563-7, [id number] ####[facility]ATORYCLIA [id number] [address] Clarity (Unsp spec) Not Indicated Normal Clear [facility] Comment on above: Order Comment: Speci men Type: CEREBROSPINAL FLUID Performed By: #### 3 4563-7, [id number] ####[facility]ORYCLIA [id number] [address] Color (CSF) Colorless Normal Colorless [facility] Comment on above: Order Comment: Speci men Type: CEREBROSPINAL FLUID Performed By: #### 3 4563-7, [id number] ####[facility] LABORATORYCLIA [id number] [address] Color (Spun CSF) Not Indicated Normal Colorless [facility] Comment on above: Order Comment: Speci men Type: CEREBROSPINAL FLUID Performed By: #### 3 4563-7, [id number] ####[facility]ATORYCLIA [id number] [address] CSF TUBE NUMBER Sterile Container Normal [facility] Comment on above: Order Comment: Speci men Type: CEREBROSPINAL FLUID Performed By: #### 3 4563-7, [id number] ####[facility] LABORATORYCLIA [id number] [address] RBC Manual cnt (CSF) [#/Vol] 171 cells/uL High 0-5 [facility] Comment on above: Order Comment: Speci men Type: CEREBROSPINAL FLUID Performed By: #### 3 4563-7, [id number] ####[facility] LABORATORYCLIA [id number] [address] WBC Manual cnt (CSF) [#/Vol] 5 cells/uL Normal 0-5 [facility] Comment on above: Order Comment: Speci men Type: CEREBROSPINAL FLUID Performed By: #### 3 4563-7, [id number] ####[facility]ORATORYCLIA [id number] [address] FUNGAL CULTUREon 06-01-2021 FUNGAL CULTURE CULTURE, FUNGAL: No Fungus isolated after 28 days Normal [facility] Comment on above: Performed By: #### F CUL ####[facility]ORATORYCLIA [id number] [address] Glucose CSF-mCncon Glucose (CSF) [Mass/Vol] 78 [...] insert V 12.0 [place]]. [employer], [place], [place]. September 2015. 2. Michelle Moore, Michelle Manjarrez (2015). Chapter 7: Glucose and Lactate. F. Irina rose al.(eds.), Cerebrospinal Fluid in Clinical Neurology. [place]: Docin. Performed By: #### 2 342-4, 2880-3 ####[facility]ATORYCLIA [id number] [place], [place] [address] [place] [address] [place] HERPES SIMPLEX CSFon 022 HERPES SIMPLEX CSF HSV PCR SPEC SOURCE: Cerebrospinal Fluid HSV-1: Negative for Herpes Simplex Virus Type 1 by PCR HSV-2: Negative for Herpes Simplex Virus Type 2 by PCR Normal [facility] Comment on above: Performed By: #### H [facility] ####[facility] LABCLIA [id number] [id number] [address] [place] Lactate (Bld) [Moles/Vol]on 06-01-2021 Lactate [Moles/Vol] 0.5 mmol/L Normal 0.5-2.2 [facility] Comment on above: Order Comment: Speci men Type: BLOOD SPECIMEN Performed By: #### 3 2693-4 ####[facility]ORATORYCLIA [id number] [place] [address] [facility] [place] MENINGITIS ENCEPHALITIS BIOF IREon 06-01-2021 MENINGITIS ENCEPHALITIS BIOFIRE Negative Normal [facility] Comment on above: Order Comment: Speci men Type: CEREBROSPINAL FLUID Performed By: #### M GEBF ####[facility] [id number] [address] Magnesium SerPl-mCncon 06-01 Magnesium [Mass/Vol] 2.2 mg/dL Normal 1.7-2.3 [facility] Comment on above: Order Comment: Speci men Type: BLOOD SPECIMEN Performed By: #### 2 4321-2, 06991-8, 6177-1 ####[facility]ORATORYCLIA [id number] [place], [place] [address] [place] [address] [place] Microorganism Spec Culton Microorganism identified Cx Nom (Unsp spec) CULTURE, AFB: No Acid Fast Bacilli isolated after 42 days AFB STAIN: No acid fast bacilli seen by flurochrome stain Normal [facility] Comment on above: Performed By: #### 1 1475-1 ####[facility]ORATORYCLIA [id number] [address] [place] PROCALCITONIN (LAB)on 2021 Procalcitonin [Mass/Vol] 0.08 ng/mL Normal <0.09 [facility] Comment on above: Order Comment: Speci men Type: BLOOD SPECIMEN Result Comment: For a guided interpretation of test results, please visit the [facility] in Procalcitonin Calculator, [email or web address]. Performed By: #### P ROCAL ####[facility]ORATORYCLIA [id number] [address] [place] Phosphate SerPl-ncon 06-01 Phosphate [Mass/Vol] 3.5 mg/dL Normal 2.7-4.8 [facility] Comment on above: Order Comment: Speci men Type: BLOOD SPECIMEN Performed By: #### 2 4321-2, 43367-9, 2776-1 ####[facility]ATORYCLIA [id number] [address] [place] Prot CSF-mCncon 06-01-2021 Protein (CSF) [Mass/Vol] 52 mg/dL High 15-45 [facility] Comment on above: Order Comment: Speci men Type: CEREBROSPINAL FLUID Performed By: #### 2 342-4, 2880-3 ####[facility]ORATORYCLIA [id number] [address] [place] Vancomycin random [Mass/Vol] [...] clinical situation. Performed By: #### 4 091-5 ####[facility]ORATORYCLIA [id number] [address] [place] XR CHEST 1V FRONTALon 2021 XR CHEST 1V FRONTAL Normal [facility] XR CHEST 1V FRONTAL Normal [facility] XR NECK SOFT TISSUE 2V AP/LA Ton 06-01-2021 XR NECK SOFT TISSUE 2V AP/LAT Normal [facility] XR SKULL 2V AP/LATon 022 XR SKULL 2V AP/LAT Normal [facility] ALLIED HEALTHon 05-31-2021 ALLIED HEALTH HNO ID: [id number] Author: Christina Lynne RT(R) Service: Radiology Author Type: Technologist Type: Allied Health Filed: 05/31/2021 5:48 PM Note Text: MRI tomorrow per RN. Normal [facility] ALLIED HEALTH Normal [facility] ALLIED HEALTH Normal [facility] HEALTH Normal [facility] ANES [...] on above: Performed By: #### 6 00-7 ####[facility]ORATORYCLIA [id number] [address] [facility] Bacteria CSF Culton 05-31-19 22 Bacteria identified Cx Nom (CSF) CULTURE, CSF: No growth 14 days GRAM STAIN: No organisms seen Rare Polymorphonuclear leukocytes Rare Red Blood Cells Gram stain performed on cytospun specimen. Normal [facility] Comment on above: Performed By: #### 6 06-4 ####[facility]ORATORYCLIA [id number] [place] [address] [place] Basic metabolic 2000 panelon 05-31-2021 Anion gap [Moles/Vol] 9 mmol/L Normal 9-18 [facility] Comment on above: Order Comment: Speci men Type: BLOOD SPECIMEN Performed By: #### 2 777-1, 56616-6, ####[facility] LABORATORYCLIA [id number] [address] STATES [facility] Calcium [Mass/Vol] 8.2 mg/dL Low 8.5-10.2 [facility] Comment on above: Order Comment: Speci men Type: BLOOD SPECIMEN Performed By: #### 2 777-1, , ####[facility]ORYCLIA [id number] [address] [place] Chloride [Moles/Vol] 110 mmol/L High 97-105 [facility] Comment on above: Order Comment: Speci men Type: BLOOD SPECIMEN Performed By: #### 2 777-1, , ####[facility]ORYCLIA [id number] [address] STATES [facility] CO2 [Moles/Vol] 27 mmol/L Normal 22-30 [facility] Comment on above: Order Comment: Speci men Type: BLOOD SPECIMEN Performed By: #### 2 777-1, , ####[facility]ATORYCLIA [id number] [place] [address] [place] Creatinine [Mass/Vol] 0.85 mg/dL Normal 0.73-1.22 [facility] Comment on above: Order Comment: Speci men Type: BLOOD SPECIMEN Performed By: #### 2 777-1, 95876-1, ####[facility]ATORYCLIA [id number] [place] [address] [place] GFR/1.73 sq M.predicted [...] actual GFR. Performed By: #### 2 777-1, 90937-8, 26284-6 ####[facility]ORATORYCLIA [id number] [place] [address] [place] Glucose [Mass/Vol] 111 mg/dL High 74-99 [facility] Comment on above: Order Comment: Speci men Type: BLOOD SPECIMEN Result Comment: The [place] [employer] (ADA) provides guidance for cutoff [...] Standards of Medical Care in Diabetes 2016, [place] [employer]. Diabetes Care. 2016.39(Suppl 1). Performed By: #### 2 777-1, 55552-5, 43121-7 ####[facility]ORATORYCLIA [id number] [place] [address] [place] Potassium [Moles/Vol] 3.7 mmol/L Normal 3.7-5.1 [facility] Comment on above: Order Comment: Speci men Type: BLOOD SPECIMEN Performed By: #### 2 777-1, 00791-4, ####[facility]ATORYCLIA [id number] [address] STATES [facility] Sodium [Moles/Vol] 146 mmol/L High 136-144 [facility] Comment on above: Order Comment: Speci men Type: BLOOD SPECIMEN Performed By: #### 2 777-1, 50790-2, ####[facility]ORATORYCLIA [id number] [address] Urea nitrogen [Mass/Vol] 16 mg/dL Normal 9-24 [facility] Comment on above: Order Comment: Speci men Type: BLOOD SPECIMEN Performed By: #### 2 777-1, 91718-2, ####[facility]ORATORYCLIA [id number] [address] [facility] CASE MGT INIT ASSESon 2021 CASE MGT INIT ASSES Normal [facility] CBC W Auto Differential pane l (Bld)on 05-31-2021 Basophils (Bld) [#/Vol] 0.04 10*3/uL Normal <0.11 [facility] Comment on above: Order Comment: Speci men Type: BLOOD SPECIMEN Performed By: #### 5 7021-8 ####[facility]ORATORYCLIA [id number] [address] [place] Basophils/100 WBC (Bld) 0.5 % Normal [facility] Comment on above: Order Comment: Speci men Type: BLOOD SPECIMEN Performed By: #### 5 7021-8 ####[facility]ATORYCLIA [id number] [address] Differential cell count method Nom (Bld) Auto Normal [facility] Comment on above: Order Comment: Speci men Type: BLOOD SPECIMEN Performed By: #### 5 7021-8 ####[facility]ATORYCLIA [id number] [address] [place] Eosinophils (Bld) [#/Vol] 0.27 10*3/uL Normal <0.46 [facility] Comment on above: Order Comment: Speci men Type: BLOOD SPECIMEN Performed By: #### 5 7021-8 ####[facility] LABORATORYCLIA [id number] [address] Eosinophils/100 WBC (Bld) 3.3 % Normal [facility] Comment on above: Order Comment: Speci men Type: BLOOD SPECIMEN Performed By: #### 5 7021-8 ####[facility]ORYCLIA [id number] [address] Erythrocyte distribution width (RBC) [Ratio] 15.4 % High 11.5-15.0 [facility] Comment on above: Order Comment: Speci men Type: BLOOD SPECIMEN Performed By: #### 5 7021-8 ####[facility]ATORYCLIA [id number] [address] Hematocrit (Bld) [Volume fraction] 37.9 % Low 39.0-51.0 [facility] Comment on above: Order Comment: Speci men Type: BLOOD SPECIMEN Performed By: #### 5 7021-8 ####[facility]ATORYCLIA [id number] [address] Hemoglobin (Bld) [Mass/Vol] 11.5 g/dL Low 13.0-17.0 [facility] Comment on above: Order Comment: Speci men Type: BLOOD SPECIMEN Performed By: #### 5 7021-8 ####[facility]ORYCLIA [id number] [address] IMMATURE GRAN % 0.4 % Normal [facility] Comment on above: Order Comment: Speci men Type: BLOOD SPECIMEN Performed By: #### 5 7021-8 ####[facility]ATORYCLIA [id number] [address] IMMATURE GRAN ABS 0.03 k/uL Normal <0.10 [facility] Comment on above: Order Comment: Speci men Type: BLOOD SPECIMEN Performed By: #### 5 7021-8 ####[facility]ATORYCLIA [id number] [address] Lymphocytes (Bld) [#/Vol] 1.90 10*3/uL Normal 1.00-4.00 [facility] Comment on above: Order Comment: Speci men Type: BLOOD SPECIMEN Performed By: #### 5 7021-8 ####[facility]ATORYCLIA [id number] [address] Lymphocytes/100 WBC (Bld) 23.0 % Normal [facility] Comment on above: Order Comment: Speci men Type: BLOOD SPECIMEN Performed By: #### 5 7021-8 ####[facility]ATORYCLIA [id number] [address] MCH (RBC) [Entitic mass] 28.0 pg Normal 26.0-34.0 [facility] Comment on above: Order Comment: Speci men Type: BLOOD SPECIMEN Performed By: #### 5 7021-8 ####[facility]ATORYCLIA [id number] [address] MCHC (RBC) [Mass/Vol] 30.3 g/dL Low 30.5-36.0 [facility] Comment on above: Order Comment: Speci men Type: BLOOD SPECIMEN Performed By: #### 5 7021-8 ####[facility]ORATORYCLIA [id number] [address] MCV (RBC) [Entitic vol] 92.4 fL Normal 80.0-100.0 [facility] Comment on above: Order Comment: Speci men Type: BLOOD SPECIMEN Performed By: #### 5 7021-8 ####[facility]ATORYCLIA [id number] [address] Monocytes (Bld) [#/Vol] 0.60 10*3/uL Normal <0.87 [facility] Comment on above: Order Comment: Speci men Type: BLOOD SPECIMEN Performed By: #### 5 7021-8 ####[facility]ORYCLIA [id number] [address] Monocytes/100 WBC (Bld) 7.3 % Normal [facility] Comment on above: Order Comment: Speci men Type: BLOOD SPECIMEN Performed By: #### 5 7021-8 ####[facility]ORYCLIA [id number] [address] Neutrophils (Bld) [#/Vol] 5.41 10*3/uL Normal 1.45-7.50 [facility] Comment on above: Order Comment: Speci men Type: BLOOD SPECIMEN Performed By: #### 5 7021-8 ####[facility]ATORYCLIA [id number] [address] Neutrophils/100 WBC (Bld) 65.5 % Normal [facility] Comment on above: Order Comment: Speci men Type: BLOOD SPECIMEN Performed By: #### 5 7021-8 ####[facility]ORYCLIA [id number] [address] Nucleated RBC (Bld) [#/Vol] 10*3/uL Normal <0.01 [facility] Comment on above: Order Comment: Speci men Type: BLOOD SPECIMEN Performed By: #### 5 7021-8 ####[facility]ORYCLIA [id number] [address] Nucleated RBC/100 WBC (Bld) [Ratio] 0.0 /100 WBC Normal 0.0 [facility] Comment on above: Order Comment: Speci men Type: BLOOD SPECIMEN Performed By: #### 5 7021-8 ####[facility]ORYCLIA [id number] [address] Platelet mean volume (Bld) [Entitic vol] 9.8 fL Normal 9.0-12.7 [facility] Comment on above: Order Comment: Speci men Type: BLOOD SPECIMEN Performed By: #### 5 7021-8 ####[facility]ATORYCLIA [id number] [address] [facility] Platelets (Bld) [#/Vol] 251 10*3/uL Normal 150-400 [facility] Comment on above: Order Comment: Speci men Type: BLOOD SPECIMEN Performed By: #### 5 7021-8 ####[facility]ORATORYCLIA [id number] [address] STATES [facility] RBC (Bld) [#/Vol] 4.10 10*6/uL Low 4.20-6.00 [facility] Comment on above: Order Comment: Speci men Type: BLOOD SPECIMEN Performed By: #### 5 7021-8 ####[facility]ATORYCLIA [id number] [address] WBC (Bld) [#/Vol] 8.25 10*3/uL Normal 3.70-11.00 [facility] Comment on above: Order Comment: Speci men Type: BLOOD SPECIMEN Performed By: #### 5 7021-8 ####[facility]ORATORYCLIA [id number] [address] CONSULTon 05-31-2021 CONSULT Normal [facility] [...] ug/dL Performed By: #### 2 143-6, 3016-3 ####[facility]ORATORYCLIA [id number] [address] Cryptoc Ag Spec Ql LAon 05-08 Cryptococcus sp Ag LA Ql (Unsp spec) Negative Normal [facility] Comment on above: Performed By: #### 4 3228-6 ####[facility]ORATORYCLIA [id number] [address] [place] HISTORY PHYSICALon 2 HISTORY PHYSICAL Normal [facility] Magnesium SerPl-mCncon 05-31 Magnesium [Mass/Vol] 2.2 mg/dL Normal 1.7-2.3 [facility] Comment on above: Order Comment: Speci men Type: BLOOD SPECIMEN Performed By: #### 2 777-1, 91882-6, ####[facility]ORATORYCLIA [id number] [address] NURSING PROGon 05-31-2021 NURSING PROG Normal [facility] NUTRITIONon 05-31-2021 NUTRITION Normal [facility] OPERATIVE NOon 05-31-2021 OPERATIVE NO Normal [facility] Phosphate SerPl-mCncon 05-31 Phosphate [Mass/Vol] 3.3 mg/dL Normal 2.7-4.8 [facility] Comment on above: Order Comment: Speci men Type: BLOOD SPECIMEN Performed By: #### 2 777-1, 95295-9, ####[facility]ORATORYCLIA [id number] [address] STAPH AUREUS PCRon 2 S. aureus and MRSA panel MEGAN+probe (Nose) Normal Negative [facility] Comment on above: Order Comment: Speci men Type: SWAB OF INTERNAL NOSE Result Comment: Nega tive for Staphylococcus aureus by PCR.Negative for MRSA by PCR Performed By: #### S APCR ####[facility]ORATORYCLIA [id number] [address] [place] TSH SerPl-aCncon 05-31-2021 TSH Qn 0.829 m[IU]/L Normal 0.270-4.200 [facility] Comment on above: Order Comment: Speci men Type: BLOOD SPECIMEN Performed By: #### 2 143-6, 3016-3 ####[facility] LABORATORYCLIA [id number] [place] [address] [place] XR CHEST 1V FRONTALon 2021 XR CHEST 1V FRONTAL Normal [facility] XR CHEST 1V FRONTAL Normal [facility] Blood Cultureon 05-30-2021 Bacteria identified Cx Nom (Bld) Culture Result - No growth 5 days Normal [facility] Comment on above: Performed By: #### C AD #### [facility] [address] [place], [place] [id number] [place] [address] Bacteria identified Cx Nom (Bld) Sp. Request/Comment: - 8.2MLS Culture Result - No growth 5 days Normal [facility] Comment on above: Performed By: #### C AD #### [facility] [address] [place], [place] [id number] [place] [address] C-Reactive Proteinon 022 C-Reactive Protein 1.7 mg/dL High <0.9 [facility] Comment on above: Performed By: #### C RP ####[facility] [address] [place], [place] [id number] CNDSon 05-30-2021 [facility] HNO ID: [id number] Author: Columba Carroll PA-C Service: Hospital Medicine Author Type: Physician Green Building Energy Engineer Type: Discharge Summary Filed: 05/30/2021 12:49 PM Note Text: ----- Attestation signed by Ayaka Menjivar MD at 06/01/2021 12:53 PM Attending Note I have personally reviewed the PA/BUNDLE BREAKER note. Agree with above assessment and plan. [...] Team: Attending Provider: Ayaka Menjivar MD Physician Green Building Energy Engineer: Columba Carroll PA-C Consulting: Lilo Mendoza MD [...] consulted. Neurology suggested empiric abx coverage for DIRECTOR OF FRONT OFFICE infection Rocephin and Vancomycin was started. Tele-neuro also suggested an MRI brain be obtained prior to LP to check DIRECT ENTRY MIDWIFE shunt and decrease risk of herniation in neurosurgery capable facility. Transfer to [facility] requested. Sepsis lactate was 1.3. ABG showed pO2 67.8, placed patient on 2L NC.Follow B1, B12, and RPR pending. 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 LABS AND PROCEDURES PENDING [...] q 1 (more content not included)... Normal [facility] CONSULTon 05-30-2021 CONSULT HNO ID: [id number] Author: Juan Carlos Mckenzie MD Service: Infectious [...] vertebrae with counting from the craniocervical junction. Mountain Guide: PSCShilpa Transcribe Date/Time: May 29 2021 8:59P Dictated by : CARLOS YOUNGER MD This examination was interpreted and the report reviewed and electronically signed by: CARLOS YOUNGER MD on May 29 2021 9:14PM EST ? CT CERVICAL SPINE WO (more content not included)... Normal [facility] CONSULT HNO ID: [id number] Author: Lilo Mendoza MD Service: Neurology General Author Type: Physician Type: Consults Filed: 05/30/2021 10:56 AM Note Text: [facility] TeleNeurology Consult Note Patient seen using Teleneurology Services. Recommendations are placed in the chart. Please review. For questions after hours, when teleneurologist is not available, for DEXTER: Please Page [phone] for the [facility] from 12pm to 8Am Admitting Provider/Consulted by:Hermes Roca MD Time of Note:05/30/2021 Patient Name:Andrew Sifuentes Admit Date:05/29/2021 Hospital Day:0 CC: altered mental status History of Present Illness: Andrew Sifuentes is a 71 year old unknown handed male with limited information about past medical history including venous insufficiency s/p EVLT, hydrocepalus s/p DIRECT ENTRY MIDWIFE shunt in 1987 with multiple revisions and [...] Reflexes Right Lef (more content not included)... 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 Age: [age] year old Allergies: ALLERGIES Allergen [...] found for: YANDELGHULAM Shannon Gutierres, [facility] Normal [facility] Creatinineon 05-30-2021 Creatinine [Mass/Vol] 0.86 mg/dL Normal 0.73-1.22 [facility] Comment on above: Performed By: #### C RET1 ####[facility] [address] [place] [phone] eGFR- Amer. >60 [facility] Comment on above: Performed By: #### C RET1 ####[facility] [address] [place] [phone] eGFR-All Other Races >60 Normal [facility] [...] at [email or web address]. Performed By: #### C RET1 ####[facility] [address] [place] [phone] Crypto Antigen Deton 01-24-2 022 Crypto Antigen Det Sp. Request/Comment: - SST Test Result - Duplicate request Account Credited [facility] Comment on above: Performed By: #### C AD #### [facility] [address] [place] [address] [facility] [address] [place], [place] [address] Crypto Antigen Det Sp. Request/Comment: - SST Test Result - Cryptococcal antigen detection result: Negative By latex agglutination [facility] Comment on above: Performed By: #### C AD #### [facility] [address] [place] [address] [facility] [address] [place] [address] ED NOTEon 05-30-2021 ED NOTE HNO ID: [id number] Author: Aletha Lopez RN Service: ? Author Type: Registered Nurse Type: ED Notes Filed: 05/29/2021 11:16 PM Note Text: Patient changed for incontinent urine, labs redrawn and sent. Patient aware of plan to be admitted and agrees with plan [facility] HISTORY PHYSICALon HISTORY PHYSICAL Normal [facility] HISTORY PHYSICAL HNO ID: [id number] Author: Hermes Roca MD Service: Hospital Medicine Author Type: Physician Type: HANDP Filed: 05/30/2021 1:03 AM Note Text: DEPARTMENT OF HOSPITAL MEDICINE HISTORY AND PHYSICAL EXAM SERVICE DATE: 05/29/2021 SERVICE TIME: 11:18 PM Primary Care Physician: Mateus Burris MD NIGHT AND WEEKEND COVERAGE: Please page [phone] until 7:30am this morning. After 7:30am please check the treatment team banner and page the appropriate service. 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 Normal [facility] Magnesium SerPl-mCncon 05-30 Magnesium [Mass/Vol] 2.5 mg/dL High 1.7-2.3 [facility] Comment on above: Order Comment: Speci men Type: BLOOD SPECIMEN Performed By: #### 1 9123-9, 2777-1 ####[facility]ATORY[facility]IA [id number] [place] [id number] [place] NURSING PROGon 05-30-2021 NURSING PROG HNO ID: [id number] Author: Precious Cervantes RN Service: ? Author Type: Registered Nurse Type: Nursing Progress Note Filed: 05/30/2021 11:26 AM Note Text: Nursing Progress Note Patient Name: Andrew Sifuentes Patient Location: [id number] Daily Note: 0700- Report received from shift mechanic RN, patient resting in bed at this time, call light within reach, bed low and locked. Asked the patient to state his name because shift mechanic RN was unable to complete his admission [...] This note was completed by: Precious Cervantes [facility] NURSING PROG HNO ID: [id number] Author: Lyubov Day RN Service: ? Author Type: Registered Nurse Type: Nursing Progress Note Filed: 05/30/2021 1:27 AM Note Text: Nursing Progress Note Patient Name: Andrew Sifuentes Patient Location: [id number] 0100: Patient is unresponsive to questions. Patient [...] note was completed by: Lyubov Day Normal [facility] Phosphate SerPl-mCncon 05-30 Phosphate [Mass/Vol] 3.5 mg/dL Normal 2.7-4.8 [facility] Comment on above: Order Comment: Speci men Type: BLOOD SPECIMEN Performed By: #### 1 9123-9, 2777-1 ####[facility]ATORYCLIA [id number] [place] [address] [place] Sepsis Lactateon 05-30-2021 Sepsis Lactate 1.5 mmol/L Normal 0.5-2.0 [facility] Comment on above: Performed By: #### S LACT ####[facility] [address] [place] [phone] Syphilis Ttl w/Reflxon 05-30 Syphilis Interp Cannot exclude recen t Treponemal infection if specimen collected within 7 to 10 days after appearance of suspect lesions or 2 to 3 weeks after an exposure. Clinical correlation is required. Normal [facility] Comment on above: Performed By: #### S Jennifer RUCKERB ####[facility] [place], [place] [phone] Syphilis Screen Rslt Non-Reactive Normal Non Reactive [facility] Comment on above: Performed By: #### S ALKA B1WB ####[facility] [place], [place] [phone] THERAPY NTon 05-30-2021 THERAPY NT HNO ID: [id number] Author: Bette Jimenez OTR/L Service: Occupational Therapy Author Type: Occupational Therapist Type: Therapy (PT/OT/Speech/Resp) Filed: 05/30/2021 10:29 AM Note Text: OCCUPATIONAL THERAPY MISSED VISIT SERVICE DATE: 05/30/2021 SERVICE TIME: 1017 to 1019 ROOM: [place] [address] Attempted Evaluation. Patient not seen due to Not following commands. Per nursing patient was seen by neuro and they are talking about having him transferred to [facility] secondary to shunt concerns. Will re attempt in the event patient continues to be admitted at [place] and is able to participate. SIGNATURE: RADHA Andres/L PATIENT NAME: Andrew Sifuentes DATE: May 30, 2021 TIME: 10:21 AM [facility] THERAPY NT HNO ID: [id number] Author: Bette Velasquez PT Service: Physical Therapy Author Type: Physical Therapist Type: Therapy (PT/OT/Speech/Resp) Filed: 05/30/2021 8:42 AM Note Text: PHYSICAL THERAPY MISSED VISIT SERVICE DATE: 05/30/2021 SERVICE TIME: 0840 to 0840 ROOM: [place] [address] Attempted Evaluation. Patient not seen due to (pt difficult to awake per RN, very lethargic). Will re-attempt when schedule permits. SIGNATURE: Bette Velasquez PT PATIENT NAME: Andrew Sifuentes DATE: May 30, 2021 TIME: 8:41 AM Normal [facility] Toxicology Screen,Uron 05-30 Amphetamines, Urine Negative Normal Negative [facility] Comment on above: Result Comment: Cuto ff threshold at 1000 ng/mL. Performed By: #### C AD #### [facility] [address] [place] [address] [facility] [address] [place], [place] [address] Barbiturates, Urine Negative Normal Negative [facility] Comment on above: Result Comment: Cuto ff threshold at 200 ng/mL. Performed By: #### C AD #### [facility] [address] [place] [address] [facility] [address] [place] [address] Benzodiazepines, Ur Negative Normal Negative [facility] Comment on above: Result Comment: Cuto ff threshold at 200 ng/mL. Performed By: #### C AD #### [facility] [address] [place] [phone] [place] [address] Cannabinoids, Urine Negative Normal Negative [facility] Comment on above: Result Comment: Cuto ff threshold at 50 ng/mL. Performed By: #### C AD #### [facility] [address] [place], [place] [phone] [place] [address] Cocaine, Urine Negative Normal Negative [facility] Comment on above: Result Comment: Cuto ff threshold at 300 ng/mL. Performed By: #### C AD #### [facility] [place] [phone] [place] [address] Opiates, Urine Negative Normal Negative [facility] Comment on above: Result Comment: Cuto ff threshold at 300 ng/mL. Performed By: #### C AD #### [facility] [place] [phone] [place] [address] Oxycodone, Urine Negative Normal Negative [facility] Comment on above: Result [...] on the same specimen through Client Services ([phone]) if contacted within 48 hours of initial testing. [1]Substance Abuse and Mental Health Services Administration (2012). Clinical Drug Testing in Primary Care Technical Assistance Publication Series 32. Department of Health and Human Services, [place], p.10. Performed By: #### C AD #### [facility] [address] [place], [place] [phone] [place] [address] Phencyclidine, Urine Negative Normal Negative [facility] Comment on above: Result Comment: Cuto ff threshold at 25 ng/mL. Performed By: #### C AD #### [facility] [address] [place] [phone] Troponin Ton 05-30-2021 Troponin T <0.010 Normal 0.000-0.029 [facility] Comment on above: Performed By: #### T NT ####[facility] [address] [place], [place] [phone] Urinalysison 05-30-2021 Bilirubin, Urine Negative Normal Negative [facility] Comment on above: Performed By: #### C AD #### [facility] [address] [place], [place] [phone] [place] [address] Clarity (U) Slightly Cloudy Critically abnormal Clear [facility] Comment on above: Performed By: #### C AD #### [facility] [address] [place], [place] [phone] [place] [address] Color (U) Yellow Normal Yellow [facility] Comment on above: Performed By: #### C AD #### [facility] [address] [place], [place] [phone] [place] [address] Glucose Ql (U) Negative Normal Negative [facility] Comment on above: Performed By: #### C AD #### [facility] [address] [place] [address] [facility] [address] [place], [place] [address] Hemoglobin/Blood,Ur Negative Normal Negative [facility] Comment on above: Performed By: #### C AD #### [facility] [address] [place] [address] [facility] [address] [place], [place] [address] Ketones Ql (U) Negative Normal Negative [facility] Comment on above: Performed By: #### C AD #### [facility] [address] [place] [address] [facility] [address] [place] [address] Leukest Negative Normal Negative [facility] Comment on above: Performed By: #### C AD #### [facility] [address] [place] [address] [facility] [address] [place], [place] [address] Nitrite Ql (U) Negative Normal Negative [facility] Comment on above: Performed By: #### C AD #### [facility] [address] [place] [address] [facility] [address] [place], [place] [address] pH (U) 8.5 [pH] High 5.0-8.0 [facility] Comment on above: Performed By: #### C AD #### [facility] [address] [place] [address] [facility] [address] [place], [place] [address] Protein, Urine Negative Normal Negative [facility] Comment on above: Performed By: #### C AD #### [facility] [address] [place] [address] [facility] [address] [place], [place] [address] Specific [place], Ur 1.015 Normal 1.005-1.030 [facility] Comment on above: Performed By: #### C AD #### [facility] [address] [place] [address] [place] [address] [place], [place] [address] Urobilinogen Qn (U) 0.2 {Marianne'U}/dL Normal 0.2-1.0 [facility] Comment on above: Performed By: #### C AD #### [facility] [address] [place] [address] [place] [address] Vitamin B1, Whole Blon 05-30 Vitamin B1 (TDP), WB 207.1 nmol/L Normal 84.0-213.0 [facility] Comment on above: Result Comment: This assay measures the concentration of thiamine diphosphate (TDP), the primary active form of vitamin B1. Approximately 90 percent of vitamin B1 present in whole blood is TDP. Thiamine and thiamine monophosphate, which comprise the remaining 10 percent, are not measured. This test was developed and its performance characteristics determined by [facility] [place] ( [facility]). It has not been cleared or approved by the FDA. [facility] is regulated under CLIA as qualified to perform high complexity testing. This test is used for clinical purposes. It should not be regarded as investigational or for research. Performed By: #### S YPHTX, B1WB ####[place] [id number] [place], [place] [phone] Vitamin B12on 05-30-2021 Cobalamin (Vitamin B12) [Mass/Vol] 494 pg/mL Normal 232-1245 [facility] Comment on above: Performed By: #### C AD #### [facility] [place] [address] [phone] ALLIED HEALTHon 05-29-2021 ALLIED HEALTH HNO ID: [id number] Author: Danica Jose RT(R) Service: Radiology Author [...] RT Kitty(R) May 29, 2021 8:51 PM [facility] HNO ID: [id number] Author: Markie Fish Service: ? Author Type: Division Roadmaster Type: Allied Health Filed: 05/29/2021 8:39 PM [...] Fish May 29, 2021 8:38 PM Normal [facility] CBC and Differentialon 05-29 Abs Baso 0.05 k/uL Normal <0.11 [facility] Comment on above: Performed By: #### C MP, MG1, CBCDIF ####[facility] [address] [place], [place] [phone] Abs Starke 0.72 k/uL Normal <0.87 [facility] Comment on above: Performed By: #### C MP, MG1, CBCDIF ####[facility] [address] [place] [address] Abs Neut 7.86 k/uL High 1.45-7.50 [facility] Comment on above: Performed By: #### C MP, MG1, CBCDIF ####[place] [address] Absolute nRBC <0.01 Normal <0.01 [facility] Comment on above: Performed By: #### C MP, MG1, CBCDIF ####[facility] [address] [place] [address] Basophils/100 WBC (Bld) 0.5 % Normal [facility] Comment on above: Performed By: #### C MP, MG1, CBCDIF ####[place] [address] DTYPE Auto Diff Normal [facility] Comment on above: Performed By: #### C MP, MG1, CBCDIF ####[place] [address] Eosinophils (Bld) [#/Vol] 0.10 10*3/uL Normal <0.46 [facility] Comment on above: Performed By: #### C MP, MG1, CBCDIF ####[place] [address] Eosinophils/100 WBC (Bld) 0.9 % Normal [facility] Comment on above: Performed By: #### C MP, MG1, CBCDIF ####[place] [address] Erythrocyte distribution width (RBC) [Ratio] 15.5 % High 11.5-15.0 [facility] Comment on above: Performed By: #### C MP, MG1, CBCDIF ####[place] [address] Hematocrit (Bld) [Volume fraction] 41.6 % Normal 39.0-51.0 [facility] Comment on above: Performed By: #### C MP, MG1, CBCDIF ####[facility] [address] [place], [place] [phone] Hemoglobin (Bld) [Mass/Vol] 12.7 g/dL Low 13.0-17.0 [facility] Comment on above: Performed By: #### C MARÍA ELENA MG1, CBCDIF ####[facility] [address] [place] [address] Lymphocytes (Bld) [#/Vol] 2.04 10*3/uL Normal 1.00-4.00 [facility] Comment on above: Performed By: #### C MP MG1, CBCDIF ####[facility] [address] [place] [address] Lymphocytes/100 WBC (Bld) 18.9 % Normal [facility] Comment on above: Performed By: #### C MARÍA ELENA MG1, CBCDIF ####[place] [address] MCH 27.3 pG Normal 26.0-34.0 [facility] Comment on above: Performed By: #### C MARÍA ELENA MG1, CBCDIF ####[place] [address] MCHC (RBC) [Mass/Vol] 30.5 g/dL Normal 30.5-36.0 [facility] Comment on above: Performed By: #### C MP MG1, CBCDIF ####[place] [address] MCV (RBC) [Entitic vol] 89.5 fL Normal 80.0-100.0 [facility] Comment on above: Performed By: #### C MP MG1, CBCDIF ####[facility] [address] [place] [address] Monocytes/100 WBC (Bld) 6.7 % Normal [facility] Comment on above: Performed By: #### C MP, MG1, CBCDIF ####[place] [address] Neutrophils/100 WBC (Bld) 73.0 % Normal [facility] Comment on above: Performed By: #### C MP, MG1, CBCDIF ####[facility] [address] [place] [address] NRBCs 0.0 /100 WBC Normal 0 [facility] Comment on above: Performed By: #### C MP, MG1, CBCDIF ####[facility] [address] [place] [address] Platelet mean volume (Bld) [Entitic vol] 10.1 fL Normal 9.0-12.7 [facility] Comment on above: Performed By: #### C MP, MG1, CBCDIF ####[facility] [address] [place], [place] [address] Platelets (Bld) [#/Vol] 291 10*3/uL Normal 150-400 [facility] Comment on above: Performed By: #### C MP, MG1, CBCDIF ####[facility] [address] [place], [place] [address] RBC (Bld) [#/Vol] 4.65 10*6/uL Normal 4.20-6.00 [facility] Comment on above: Performed By: #### C MP, MG1, CBCDIF ####[facility] [address] [place], [place] [address] WBC (Bld) [#/Vol] 10.77 10*3/uL Normal 3.70-11.00 [facility] Comment on above: Performed By: #### C MP, MG1, CBCDIF ####[facility] [address] [place], [place] [address] CT BRAIN WO IVCONon 05-29-19 CT BRAIN WO IVCON * * *Final Report* * * DATE OF EXAM: May 29 2021 8:42PM [facility] 0504 - CT BRAIN WO IVCON / PROCEDURE REASON: Head trauma, headache * * * * Physician Interpretation * * * * EXAMINATION: CT CERVICAL SPINE WO IVCON, CT BRAIN WO IVCON CLINICAL HISTORY: C-spine trauma, NEXUS/CCR positive (accession [id number]), Head trauma, headache (accession [id number]) TECHNIQUE: Serial axial unenhanced images were obtained from the vertex to the foramen magnum. Spiral, high resolution axial unenhanced images were obtained from the skull base to the cervicothoracic junction with sagittal and coronal planar reconstructions. Dose-Length Product (DLP): 2132 mGy*cm. CT Dose Reduction Employed: Automated exposure control (AEC) COMPARISON: 08/13/[address] RESULT: BRAIN: Post-operative change: Right parietal approach DIRECT ENTRY MIDWIFE shunt is intact. The intracranial fragments of [...] vertebrae with counting from the craniocervical junction. Mountain Guide: OG Transcribe Date/Time: May 29 2021 8:59P Dictated by : CARLOS YOUNGER MD This examination was interpreted and the report reviewed and electronically signed by: CARLOS YOUNGER MD on May 29 2021 9:14PM EST [id number] [facility] CT CERVICAL SPINE WO IVCONon 05-29-2021 CT CERVICAL SPINE WO IVCON * * *Final Report* * * DATE OF EXAM: May 29 2021 8:42PM [facility] 0505 - CT CERVICAL SPINE WO IVCON / PROCEDURE REASON: C-spine trauma, NEXUS/CCR positive * * * * Physician Interpretation * * * * EXAMINATION: CT CERVICAL SPINE WO IVCON, CT BRAIN WO IVCON CLINICAL HISTORY: C-spine trauma, NEXUS/CCR positive (accession [id number]), Head trauma, headache (accession [id number]) TECHNIQUE: Serial axial unenhanced images were obtained from the vertex to the foramen magnum. Spiral, high resolution axial unenhanced images were obtained from the skull base to the cervicothoracic junction with sagittal and coronal planar reconstructions. Dose-Length Product (DLP): 2132 mGy*cm. CT Dose Reduction Employed: Automated exposure control (AEC) COMPARISON: 08/13/[address] RESULT: BRAIN: Post-operative change: Right parietal approach DIRECT ENTRY MIDWIFE shunt is intact. The intracranial fragments of [...] vertebrae with counting from the craniocervical junction. Mountain Guide: PSCB Transcribe Date/Time: May 29 2021 8:59P Dictated by : CARLOS YOUNGER MD This examination was interpreted and the report reviewed and electronically signed by: CARLOS YOUNGER MD on May 29 2021 9:14PM EST [id number] [facility] Cepheid Bill only (EXCFR)on 05-29-2021 Cepheid Bill only (EXCFR) Billed for services performed [facility] Comment on above: Performed By: #### C AD #### [facility] [address] [place] [address] [facility] [address] [place], [place] [address] Comp Metabolic Panelon 05-29 Albumin [Mass/Vol] 4.1 g/dL Normal 3.9-4.9 [facility] Comment on above: Performed By: #### C MP ####[facility] [address] [place] [address] ALP [Catalytic activity/Vol] 86 U/L Normal 38-113 [facility] Comment on above: Performed By: #### C MP ####[facility] [address] [place] [address] ALT [Catalytic activity/Vol] 15 U/L Normal 10-54 [facility] Comment on above: Performed By: #### C MP ####[facility] [address] [place] [address] Anion gap [Moles/Vol] 9 mmol/L Normal 9-18 [facility] Comment on above: Performed By: #### C MP ####[facility] [address] [place] [address] AST [Catalytic activity/Vol] 22 U/L Normal 14-40 [facility] Comment on above: Performed By: #### C MP ####[facility] [address] [place] [address] Bilirubin [Mass/Vol] 0.2 mg/dL Normal 0.2-1.3 [facility] Comment on above: Performed By: #### C MP ####[facility] Tccfcercza4753 [place] [address] Calcium [Mass/Vol] 9.1 mg/dL Normal 8.5-10.2 [facility] Comment on above: Performed By: #### C MP ####[facility] Dxzacjjczx1883 [place] [address] Chloride [Moles/Vol] 103 mmol/L Normal 97-105 [facility] Comment on above: Performed By: #### C MP ####[facility] Amqxmdhnrm6066 [place] [address] CO2 [Moles/Vol] 29 mmol/L Normal 22-30 [facility] Comment on above: Performed By: #### C MP ####[facility] Nggqaukind2380 [address] Creatinine [Mass/Vol] 0.89 mg/dL Normal 0.73-1.22 [facility] Comment on above: Performed By: #### C MP ####[facility] Pstlgfabab6068 [place] [address] eGFR- Amer. >60 Normal [facility] Comment on above: Performed By: #### C MP ####[facility] Mnxbtyrzix6894 [address] eGFR-All Other Races >60 Normal [place] [...] at [email or web address]. Performed By: #### C MP ####[facility] Weyatiwvgn9481 [address] Glucose [Mass/Vol] 120 mg/dL High 74-99 [facility] Comment on above: Result Comment: The [place] Diabetes Association (ADA) provides guidance for cutoff [...] Standards of Medical Care in Diabetes 2016, [place] [employer]. Diabetes Care. 2016.39(Suppl 1). Performed By: #### C MP ####[facility] Whvepwwchs7558 [place] [address] Potassium [Moles/Vol] 4.2 mmol/L Normal 3.7-5.1 [facility] Comment on above: Performed By: #### C MP ####[facility] [address] [place] [address] Protein [Mass/Vol] 7.1 g/dL Normal 6.3-8.0 [facility] Comment on above: Performed By: #### C MP ####[place] [address] Sodium [Moles/Vol] 141 mmol/L Normal 136-144 [facility] Comment on above: Performed By: #### C MP ####[facility] [address] [place] [address] Urea nitrogen [Mass/Vol] 11 mg/dL Normal 9-24 [facility] Comment on above: Performed By: #### C MP ####[place] [address] Albumin [Mass/Vol] 4.1 g/dL Normal 3.9-4.9 [facility] Comment on above: Performed By: #### C MP, MG1, CBCDIF ####[facility] [address] [place] [address] ALP [Catalytic activity/Vol] 86 U/L Normal 38-113 [facility] Comment on above: Performed By: #### C MP, MG1, CBCDIF ####[place] [address] ALT Unable to assay due to interference from hemolysis. Suggest reorder as clinically indicated. Normal 10-54 [facility] Comment on above: Result Comment: Call ed to LISA Rea at 2129 on 05.29.21 by Sabino Performed By: #### C MP, MG1, CBCDIF ####[facility] Rvbikffuai4017 [place] [address] Anion gap [Moles/Vol] 12 mmol/L Normal 9-18 [facility] Comment on above: Performed By: #### C MP, MG1, CBCDIF ####[facility] Wnshxcyjel8983 [place] [address] AST Unable to assay due to interference from hemolysis. Suggest reorder as clinically indicated. Normal 14-40 [facility] Comment on above: Result Comment: Call ed to ED Álvaro at 2129 on 05.29.21 by Sabino Performed By: #### C MP, MG1, CBCDIF ####[facility] Tkcxsadubj2164 [place] [address] Bilirubin [Mass/Vol] 0.2 mg/dL Normal 0.2-1.3 [facility] Comment on above: Performed By: #### C MP, MG1, CBCDIF ####[facility] Saskndqeov7526 [place] [address] Calcium [Mass/Vol] 9.0 mg/dL Normal 8.5-10.2 [facility] Comment on above: Performed By: #### C MP, MG1, CBCDIF ####[facility] Rygeufhsds1222 [place] [address] Chloride [Moles/Vol] 102 mmol/L Normal 97-105 [facility] Comment on above: Performed By: #### C MP, MG1, CBCDIF ####[facility] Pkxcnkvcxm8441 [place] [address] CO2 [Moles/Vol] 27 mmol/L Normal 22-30 [facility] Comment on above: Performed By: #### C MP, MG1, CBCDIF ####[facility] Kizpaceswb9152 [place] [address] Creatinine [Mass/Vol] 0.75 mg/dL Normal 0.73-1.22 [facility] Comment on above: Performed By: #### C MP, MG1, CBCDIF ####[facility] Bogbhwcwfu8134 [address] eGFR- Amer. >60 Normal [facility] Comment on above: Performed By: #### C MP, MG1, CBCDIF ####[facility] [address]ol[address]jozt[address] [place] [phone] eGFR-All Other Races >60 Normal [facility] [...] Performed By: #### C MP, MG1, CBCDIF ####[facility] Bwqiidlulx0103 [place] [phone] Glucose [Mass/Vol] 112 mg/dL High 74-99 [facility] Comment on above: Result Comment: The [place] Diabetes Association (ADA) provides guidance for cutoff [...] Standards of Medical Care in Diabetes 2016, [place] Diabetes [employer]. Diabetes Care. 2016.39(Suppl 1). Performed By: #### C MP, MG1, CBCDIF ####[facility] Iyrpwjcine[address] [place] [phone] Potassium Unable to assay due to interference from hemolysis. Suggest reorder as clinically indicated. Normal 3.7-5.1 [facility] Comment on above: Result Comment: Call ed to ED Álvaro at 2129 on 05.29.21 by Sabino Performed By: #### C MP, MG1, CBCDIF ####[facility] Etrzqrgjkt9155 [address]7[address] Protein [Mass/Vol] 7.3 g/dL Normal 6.3-8.0 [facility] Comment on above: Performed By: #### C MP, MG1, CBCDIF ####[facility] Iagdedajci5461 [address]7[address] Sodium [Moles/Vol] 141 mmol/L Normal 136-144 [facility] Comment on above: Performed By: #### C MP, MG1, CBCDIF ####[facility] Jxmunqmmbo2598 [address]7[address] Urea nitrogen [Mass/Vol] 11 mg/dL Normal 9-24 [facility] Comment on above: Performed By: #### C MP, MG1, CBCDIF ####[facility] Dsvzofrmeh2341 [address]721[address] ED PROV NOTEon 05-29-2021 ED PROV NOTE HNO ID: [id number] Author: Shanell Slaughter MD Service: ? Author [...] No radiographic evidence of acute cardiopulmonary disease. Mountain Guide: [facility] Transcribe Date/Time: May 29 2021 8:53P [...] vertebrae with counting from the craniocervical junction. Mountain Guide: [facility] Transcribe Date/Time: May 29 2021 8:59P [...] vertebrae with counting from the craniocervical junction. Mountain Guide: [facility] Transcribe Date/Time: May 29 (more content not included)... Normal [facility] ED PROV NOTE HNO ID: [id number] Author: Flavio Pandya DO Service: Emergency Medicine Author Type: Physician Type: ED Provider Notes Filed: 05/29/2021 7:10 PM Note Text: ED Provider Note Patient Name: Andrew Sifuentes SERVICE DATE: 05/29/21 History Patient presents with: Fall 71 yo male non-smoker, hx of HTN, 2 DIRECT ENTRY MIDWIFE shunts, PE (not on anticoagulation now), asthma, [...] with assistance from bedside clinician. Provider Location: [facility] Patient Location: Outpatient Hospital Physical Exam [...] Pandya, DO Flavio Pandya, DO 05/29/211909 Normal [facility] EXCOVD, Flu A/B, RSV (On int erfaces 1102,1120)on 05-29-2021 Influenza A PCR Negative Normal [facility] Comment on above: Performed By: #### C AD #### [facility] [address] [place], [place] [address] [place] [address] Laboratories [address] [place] [address] Influenza B PCR Negative Normal [facility] Comment on above: Performed By: #### C AD #### [facility] [address] [place] [address] RSV PCR Negative Normal [facility] Comment on above: Result Comment: This test has been authorized by [facility] under an Emergency Use Authorization (EUA). Performed By: #### C AD #### [facility] [address] [place] [address] SARS-CoV-2 (COVID-19) RNA MEGAN+probe Ql (Unsp spec) UPPER RESPIRATORY TRACT SWAB Normal [facility] Comment on above: Performed By: #### C AD #### [facility] [address] [place] [address] SARS-CoV-2 (COVID-19) RNA MEGAN+probe Ql (Unsp spec) Negative for COVID19 (SARS CoV2) by RT-PCR or equivalent method. Normal Negative for COVID19 (SARS CoV2) by RT-PCR or equivalent method. [facility] Comment on above: Result Comment: This test has been authorized by [facility] under an Emergency Use Authorization (EUA). Performed By: #### C AD #### [facility] [address] [place] [address] Magnesiumon 05-29-2021 Magnesium [Mass/Vol] 2.2 mg/dL Normal 1.7-2.3 [facility] Comment on above: Performed By: #### C MP, MG1, CBCDIF ####[facility] [address] [place] [phone] NT Pro BNPon 05-29-2021 PRO B Natr Peptide 303 pg/mL High <125 [facility] Comment on above: Performed By: #### N TBNP ####[facility] Yzrytnxedu3631 [place] [phone] Troponin Ton 05-29-2021 Troponin T <0.010 Normal 0.000-0.029 [facility] Comment on above: Performed By: #### T NT ####[facility] Ylmsvacrim5914 [place] [phone] Troponin T Unable to assay due to interference from hemolysis. Suggest reorder as clinically indicated. Normal 0.000-0.029 [facility] Comment on above: Result Comment: Call ed to ED Álvaro at 2129 on 05.29.21 by Sabino Performed By: #### T NT ####[facility] Adgovomirv6754 [phone] XR CHEST 1V FRONTAL PORTon 0 [...] No radiographic evidence of acute cardiopulmonary disease. Mountain Guide: [facility]G Transcribe Date/Time: May 29 2021 8:53P Dictated by : ROLY BANGURA MD This examination was interpreted and the report reviewed and electronically signed by: ROLY BANGURA MD on May 29 2021 8:54PM EST [id number] Normal [facility] COMPREHENSIVE PANELon 2020 Albumin [Mass/Vol] 3.9 g/dL Normal 3.4 - 5.0 [facility] Comment on above: Order Comment: PATIE NT FASTING Performed By: #### C MP #### [facility] [address] [place] [address] ALP [Catalytic activity/Vol] 71 U/L Normal 33 - 136 [facility] Comment on above: Order Comment: PATIE NT FASTING Performed By: #### C MP #### [facility] [address] [place] [address] ALT [Catalytic activity/Vol] 19 U/L Normal 10 - 52 [facility] Comment on above: Order Comment: PATIE NT FASTING Result Comment: Nasima ents treated with Sulfasalazine may generate falsely decreased results for ALT. Performed By: #### C MP #### [facility] [address] [place] [address] Anion gap [Moles/Vol] 13 mmol/L Normal 10 - 20 [facility] Comment on above: Order Comment: PATIE NT FASTING Performed By: #### C MP #### [facility] [address] [place] [address] AST [Catalytic activity/Vol] 20 U/L Normal 9 - 39 [facility] Comment on above: Order Comment: PATIE NT FASTING Performed By: #### C MP #### [facility] [address] [place] [address] Bilirubin [Mass/Vol] 0.6 mg/dL Normal 0.0 - 1.2 [facility] Comment on above: Order Comment: PATIE NT FASTING Performed By: #### C MP #### [facility] [address] [place] [address] Calcium [Mass/Vol] 9.0 mg/dL Normal 8.6 - 10.6 [facility] Comment on above: Order Comment: PATIE NT FASTING Performed By: #### C MP #### [facility] [address] [place] [address] Chloride [Moles/Vol] 103 mmol/L Normal 98 - 107 [facility] Comment on above: Order Comment: PATIE NT FASTING Performed By: #### C MP #### [facility] [address] [place] [address] Creatinine [Mass/Vol] 0.94 mg/dL Normal 0.50 - 1.30 [facility] Comment on above: Order Comment: PATIE NT FASTING Performed By: #### C MP #### [facility] [address] [place] [address] GFR- AM. >60 Normal >60 [facility] Comment on above: Order Comment: PATIE NT FASTING Result Comment: CALC ULATIONS OF ESTIMATED GFR ARE PERFORMED USING THE MDRD STUDY EQUATION FOR THE IDMS-TRACEABLE CREATININE METHODS. CLIN CHEM 2007;53:766-72 Performed By: #### C MP #### [facility] [address] [place] [address] GFR-NON AM. >60 Normal >60 [facility] Comment on above: Order Comment: PATIE NT FASTING Performed By: #### C MP #### [facility] [address] [place] [address] Glucose [Mass/Vol] 85 mg/dL Normal 74 - 99 [facility] Comment on above: Order Comment: PATIE NT FASTING Performed By: #### C MP #### [facility] [address] [place] [address] HCO3 (Bld) [Moles/Vol] 30 mmol/L Normal 21 - 32 [facility] Comment on above: Order Comment: PATIE NT FASTING Performed By: #### C MP #### [facility] [address] [place] [address] Potassium [Moles/Vol] 4.1 mmol/L Normal 3.5 - 5.3 [facility] Comment on above: Order Comment: PATIE NT FASTING Performed By: #### C MP #### [facility] [address] [place] [address] Protein [Mass/Vol] 6.6 g/dL Normal 6.4 - 8.2 [facility] Comment on above: Order Comment: PATIE NT FASTING Performed By: #### C MP #### [facility] [address] [place] [address] Sodium [Moles/Vol] 142 mmol/L Normal 136 - 145 [facility] Comment on above: Order Comment: PATIE NT FASTING Performed By: #### C MP #### [facility] [address] [place] [address] Urea nitrogen [Mass/Vol] 14 mg/dL Normal 6 - 23 [facility] Comment on above: Order Comment: PATIE NT FASTING Performed By: #### C MP #### [facility] [address] [place] [address] LIPID PANEL (CORONARY RISK 2 )on 09-03-2020 Cholesterol [Mass/Vol] 210 mg/dL High 0 - 199 [facility] Comment on above: Order Comment: PATIE [...] Performed By: #### L IPID #### [facility] [address] [place] [address] Cholesterol in HDL [Mass/Vol] 50.1 mg/dL Normal [facility] Comment on above: Order Comment: PATIE NT FASTING Result Comment: . AGE VERY LOW LOW NORMAL HIGH 0-19 Y < 35 < 40 40-45 ---- 20-24 Y ---- < 40 >45 ---- >24 Y ---- < 40 40-60 >60 . Performed By: #### L IPID #### [facility] [address] [place] [address] Cholesterol in LDL [Mass/Vol] 130 mg/dL High 0 - 99 [facility] Comment on above: Order Comment: PATIE NT FASTING Result Comment: . NEAR BORD AGE DESIRABLE OPTIMAL HIGH HIGH VERY HIGH 0-19 Y 0 - 109 --- 110-129 >/= 130 ---- 20-24 Y 0 - 119 --- 120-159 >/= 160 ---- >24 Y 0 - 99 100-129 130-159 160-189 >/=190 . Performed By: #### L IPID #### [facility] [address] [place] [address] Cholesterol in VLDL [Mass/Vol] 30 mg/dL Normal 0 - 40 [facility] Comment on above: Order Comment: PATIE NT FASTING Performed By: #### L IPID #### [facility] [address] [place] [address] Cholesterol.total/Chol esterol in HDL [Mass ratio] 4.2 {ratio} Normal [facility] Comment on above: Order Comment: PATIE NT FASTING Result Comment: REF VALUES DESIRABLE < 3.4 HIGH RISK > 5.0 Performed By: #### L IPID #### [facility] [address] [place] [address] Triglyceride [Mass/Vol] 152 mg/dL High 0 - 149 [facility] Comment on above: Order Comment: PATIE [...] Performed By: #### L IPID #### [facility] [address] [place] [address] PROSTATE SPEC.AG,SCREENon PROSTATE SPEC.AG,SCREEN 0.37 ng/mL Normal 0.00 - 4.00 [facility] Comment on above: Order Comment: PATIE NT FASTING Result Comment: The FDA requires that the method used for PSA assay be reported to the physician. Values obtained with different assay methods must not be used interchangeably. This test was performed at [facility] using the [employer] PSA method, which is a sandwich immunoassay using chemiluminescence for quantitation. The assay is approved for measurement of prostate-specific antigen (PSA) in serum and may be used in conjunction with a digital rectal examination in men 50 years and older as an aid in detection of prostate cancer. 5-Ovwqv-lsqiyxaar inhibitors (e.g. Proscar, Finasteride, Avodart, Dutasteride and Elizabeth) for the treatment of BPH have been shown to lower PSA levels by an average of 50% after 6 months of treatment. Performed By: #### P [facility] #### [facility] [address] [place] [address] TSH WITH REFLEX TO FREE T4 I F ABNORMALon 09-03-2020 TSH Qn 0.97 m[IU]/L Normal 0.44 - 3.98 [facility] Comment on above: Order Comment: PATIE NT FASTING Result Comment: TSH testing is performed using different testing methodology at [facility] than at other [facility]. Direct result comparisons should only be made within the same method. Performed By: #### T HYDS #### [facility] [address] [place] [address] CBC AND DIFFERENTIALon 09-02 % AUTOMATED IMMATURE GRAN 0.3 % Normal 0.0 - 0.9 [facility] Comment on above: Order Comment: PATIE NT FASTING Result Comment: [place] Granulocyte Count (IG) includes promyelocytes, myelocytes and metamyelocytes but does not include bands. Percent differential counts (%) should be interpreted in the context of the absolute cell counts (cells/L). Performed By: #### C BCDF #### [facility] [address] [place] [address] Basophils (Bld) [#/Vol] 0.07 10*3/uL Normal 0.00 - 0.10 [facility] Comment on above: Order Comment: PATIE NT FASTING Result Comment: Auto mated WBC differential has been confirmed by manual smear. Performed By: #### C BCDF #### [facility] [address] [place] [address] Basophils/100 WBC (Bld) 0.9 % Normal 0.0 - 2.0 [facility] Comment on above: Order Comment: PATIE NT FASTING Performed By: #### C BCDF #### [facility] [address] [place] [address] Eosinophils (Bld) [#/Vol] 0.21 10*3/uL Normal 0.00 - 0.70 [facility] Comment on above: Order Comment: PATIE NT FASTING Performed By: #### C BCDF #### [facility] [address] [place] [address] Eosinophils/100 WBC (Bld) 2.8 % Normal 0.0 - 6.0 [facility] Comment on above: Order Comment: PATIE NT FASTING Performed By: #### C BCDF #### [facility] [address] [place] [address] Lymphocytes (Bld) [#/Vol] 2.28 10*3/uL Normal 1.20 - 4.80 [facility] Comment on above: Order Comment: PATIE NT FASTING Performed By: #### C BCDF #### [facility] [address] [place] [address] Lymphocytes/100 WBC (Bld) 30.9 % Normal 13.0 - 44.0 [facility] Comment on above: Order Comment: PATIE NT FASTING Performed By: #### C BCDF #### [facility] [address] [place] [address] Monocytes (Bld) [#/Vol] 0.50 10*3/uL Normal 0.10 - 1.00 [facility] Comment on above: Order Comment: PATIE NT FASTING Performed By: #### C BCDF #### [facility] [address] [place] [address] Monocytes/100 WBC (Bld) 6.8 % Normal 2.0 - 10.0 [facility] Comment on above: Order Comment: PATIE NT FASTING Performed By: #### C BCDF #### [facility] [address] [place] [address] Neutrophils (Bld) [#/Vol] 4.29 10*3/uL Normal 1.20 - 7.70 [facility] Comment on above: Order Comment: PATIE NT FASTING Performed By: #### C BCDF #### [facility] [address] [place] [address] Neutrophils/100 WBC (Bld) 58.3 % Normal 40.0 - 80.0 [facility] Comment on above: Order Comment: PATIE NT FASTING Performed By: #### C BCDF #### [facility] [address] [place] [address] Erythrocyte distribution width (RBC) [Ratio] 14.6 % High 11.5 - 14.5 [facility] Comment on above: Order Comment: PATIE NT FASTING Performed By: #### C BCDF #### [facility] [address] [place] [address] Hematocrit (Bld) [Volume fraction] 43.1 % Normal 41.0 - 52.0 [facility] Comment on above: Order Comment: PATIE NT FASTING Performed By: #### C BCDF #### [facility] [address] [place] [address] Hemoglobin (Bld) [Mass/Vol] 13.3 g/dL Low 13.5 - 17.5 [facility] Comment on above: Order Comment: PATIE NT FASTING Performed By: #### C BCDF #### [facility] [address] [place] [address] MCHC (RBC) [Mass/Vol] 30.9 g/dL Low 32.0 - 36.0 [facility] Comment on above: Order Comment: PATIE NT FASTING Performed By: #### C BCDF #### [facility] [address] [place] [address] MCV (RBC) [Entitic vol] 92 fL Normal 80 - 100 [facility] Comment on above: Order Comment: PATIE NT FASTING Performed By: #### C BCDF #### [facility] [address] [place] [address] NUCLEATED RBC 0.0 /100 WBC Normal 0.0-0.0 [facility] Comment on above: Order Comment: PATIE NT FASTING Performed By: #### C BCDF #### [facility] [address] [place] [address] Platelets (Bld) [#/Vol] 267 10*3/uL Normal 150 - 450 [facility] Comment on above: Order Comment: PATIE NT FASTING Performed By: #### C BCDF #### [facility] [address] [place] [address] RBC 4.69 x10E12/L Normal 4.50 - 5.90 [facility] Comment on above: Order Comment: PATIE NT FASTING Performed By: #### C BCDF #### [facility] [address] [place] [address] WBC (Bld) [#/Vol] 7.4 10*3/uL Normal 4.4 - 11.3 [facility] Comment on above: Order Comment: PATIE NT FASTING Performed By: #### C BCDF #### [facility] [address] [place] [address] RED CELL MORPHOLOGYon 2020 CHANELL CELLS Few Normal [facility] Comment on above: Order Comment: PATIE NT FASTING Performed By: #### M ORP2 #### [facility] [address] [place] [address] OVALOCYTES Few Normal [facility] Comment on above: Order Comment: PATIE NT FASTING Performed By: #### M ORP2 #### [facility] [address] [place] [address] POLYCHROMASIA Mild Normal [facility] Comment on above: Order Comment: PATIE NT FASTING Performed By: #### M ORP2 #### [facility] [address] [place] [address] RBC FRAGMENTS Few Normal [facility] Comment on above: Order Comment: PATIE NT FASTING Performed By: #### M ORP2 #### [facility] [address] [place] [address] RBC morphology finding Nom (Bld) See Below Normal [facility] Comment on above: Order Comment: PATIE NT FASTING Performed By: #### M ORP2 #### [facility] [address] [place] [address] No Panel Informationon 01-19 76 1 MP-Cardiolo [...] [place] Work Phone: [email or web address] ?RetrieveTestByDateTime?P afdqtiJT=[id number]&Date=1 09-13-2019&Time=15%3a11%3a 03%3a00&TestType=ECG&Site =1&OutputType=PDF&Ext=PDF MP-Cardiolo gy-[place] [address] [place] Work Phone: Otheron 11-13-2019 [facility] Complete Blood Count + Diffe rentialon 11-06-2019 Basophils (Bld) [#/Vol] 0.06 {x10E9/L} See Below MP-[facility] Work Phone: Comment on above: Reference Range: 0.0 0 - 0.10 Basophils/100 WBC (Bld) 0.8 % 0.0 - 2.0 [facility] Work Phone: Eosinophils (Bld) [#/Vol] 0.18 {x10E9/L} See Below [facility] Work Phone: Comment on above: Reference Range: 0.0 0 - 0.70 Eosinophils/100 WBC (Bld) 2.5 % 0.0 - 6.0 [facility] Work Phone: Erythrocyte distribution width (RBC) [Ratio] 13.7 % See Below [facility] Work Phone: Comment on above: Reference Range: 11. 5 - 14.5 Hematocrit (Bld) [Volume fraction] 45.5 % See Below [facility] Work Phone: Comment on above: Reference Range: 41. 0 - 52.0 Hemoglobin (Bld) [Mass/Vol] 14.0 g/dL See Below [facility] Work Phone: Comment on above: Reference Range: 13. 5 - 17.5 Lymphocytes (Bld) [#/Vol] 2.15 {x10E9/L} See Below [facility] Work Phone: Comment on above: Reference Range: 1.2 0 - 4.80 Lymphocytes/100 WBC (Bld) 29.9 % See Below [facility] Work Phone: Comment on above: Reference Range: 13. 0 - 44.0 MCHC (RBC) [Mass/Vol] 30.8 g/dL below low threshold See Below [facility] Work Phone: Comment on above: Reference Range: 32. 0 - 36.0 MCV (RBC) [Entitic vol] 94 fL 80 - 100 [facility] Work Phone: Monocytes (Bld) [#/Vol] 0.49 {x10E9/L} See Below [facility] Work Phone: Comment on above: Reference Range: 0.1 0 - 1.00 Monocytes/100 WBC (Bld) 6.8 % 2.0 - 10.0 [facility] Work Phone: Neutrophils (Bld) [#/Vol] 4.30 {x10E9/L} See Below [facility] Work Phone: Comment on above: Reference Range: 1.2 0 - 7.70 Neutrophils/100 WBC (Bld) 59.9 % See Below [facility] Work Phone: Comment on above: Reference Range: 40. 0 - 80.0 Platelets (Bld) [#/Vol] 270 {x10E9/L} 150 - 450 [facility] Work Phone: RBC (Bld) [#/Vol] 4.85 {x10E12/L} See Below [facility] Work Phone: Comment on above: Reference Range: 4.5 0 - 5.90 WBC (Bld) [#/Vol] 0.0 {/100_WBC} 0.0-0.0 [facility] Work Phone: WBC (Bld) [#/Vol] 7.2 {x10E9/L} 4.4 - 11.3 [facility] Work Phone: Complete Blood Count + Differential 0.1 % 0.0 - 0.9 [facility] Work Phone: Comment on above: Immature Granulocyte Count (IG) includes promyelocytes, myelocytes and metamyelocytes but does not include bands. Percent differential counts (%) should be interpreted in the context of the absolute cell counts (cells/L). Lipid Panelon 11-06-2019 Cholesterol [Mass/Vol] 181 mg/dL 0 - 199 [facility] Work Phone: Comment on [...] dosing. Cholesterol in HDL [Mass/Vol] 52.1 mg/dL [facility] Work Phone: Comment on above: . AGE VERY LOW LOW N ORMAL HIGH 0-19 Y < 35 < 40 40-45 ---- 20-24 Y ---- < 40 >45 ---- >24 Y ---- < 40 40-60 >60. Cholesterol in LDL [Mass/Vol] 97 mg/dL 0 - 99 [facility] Work Phone: Comment on above: . NEAR BORD AGE IZABELLA RABLE OPTIMAL HIGH HIGH VERY HIGH 0-19 Y 0 - 109 --- 110-129 >/= 130 ---- 20-24 Y 0 - 119 --- 120-159 >/= 160 ---- >24 Y 0 - 99 100-129 130-159 160-189 >/=190. Cholesterol.total/Chol esterol in HDL [Mass ratio] 3.5 {ratio} [facility] Work Phone: Comment on above: REF VALUESDESIRABLE < 3.4HIGH RISK > 5.0 Triglyceride [Mass/Vol] 158 mg/dL above high threshold 0 - 149 [facility] Work Phone: Comment on above: . AGE [...] [Catalytic activity/Vol] 70 U/L 33 - 136 [facility] Work Phone: Anion gap [Moles/Vol] 13 mmol/L 10 - 20 [facility] Work Phone: Bilirubin [Mass/Vol] 0.6 mg/dL 0.0 - 1.2 [facility] Work Phone: Calcium [Mass/Vol] 9.4 mg/dL 8.6 - 10.6 [facility] Work Phone: Chloride [Moles/Vol] 99 mmol/L 98 - 107 [facility] Work Phone: CO2 [Moles/Vol] 30 mmol/L 21 - 32 [facility] Work Phone: Creatinine [Mass/Vol] 0.87 mg/dL See Below [facility] Work Phone: Comment on above: Reference Range: 0.5 0 - 1.30 Glucose [Mass/Vol] 89 mg/dL 74 - 99 [facility] Work Phone: Potassium [Moles/Vol] 4.3 mmol/L 3.5 - 5.3 [facility] Work Phone: Protein [Mass/Vol] 7.3 g/dL 6.4 - 8.2 [facility] Work Phone: Sodium [Moles/Vol] 138 mmol/L 136 - 145 [facility] Work Phone: Urea nitrogen [Mass/Vol] 14 mg/dL 6 - 23 [facility] Work Phone: Otheron 11-06-2019 Albumin BCP dye [Mass/Vol] 4.4 g/dL 3.4 - 5.0 [facility] Work Phone: ALT With P-5'-P [Catalytic activity/Vol] 11 U/L 10 - 52 [facility] Work Phone: Comment on above: Patients treated wit h Sulfasalazine may generate falsely decreased results for ALT. AST With P-5'-P [Catalytic activity/Vol] 17 U/L 9 - 39 [facility] Work Phone: >60 >60 [facility] Work Phone: Comment on above: CALCULATIONS OF LUZMARIA MATED GFR ARE PERFORMED USING THE MDRD STUDY EQUATION FOR THE IDMS-TRACEABLE CREATININE METHODS. CLIN CHEM 2007;53:766-72 Culture, urine Bacteria identified Cx Nom (U) Mixed Gram Pos & Gram Neg Org [facility] Work Phone: Bacteria identified Cx Nom (U) Klebsiella pneumoniae sp pneum [facility] Work Phone: Vital Signs Date [...] 98.01 [degF] Lanette Munguia DO Work Phone: [facility] 03-02-2022 18:49-0400 Diastolic blood pressure 72 mm[Hg] Lanette Munguia DO Work Phone: [email or web address] 03-02-2022 18:49-0400 Heart rate 94 /min Lanette Munguia DO Work Phone: [email or web address] 03-02-2022 18:49-0400 Respiratory rate 18 /min Lanette Munguia DO Work Phone: [email or web address] 03-02-2022 18:49-0400 SaO2% (BldA) [Mass fraction] 98 % Lanette Munguia DO Work Phone: [email or web address] 03-02-2022 18:49-0400 Systolic blood pressure 104 mm[Hg] Lan[facility] DO [facility] Phone: [facility] 03-02-2022 11:55-0400 Body height 175.3 cm Lanette Munguia DO Work Phone: [email or web address] 03-02-2022 11:55-0400 Body mass index (BMI) [Ratio] 25.84 kg/m2 Lanette Munguia DO Work Phone: [email or web address] 03-02-2022 11:55-0400 Body weight 79.38 kg Lanette Munguia DO Work Phone: [facility] 12-22-2021 02:08-0400 Diastolic blood pressure 67 mm[Hg] Sharon Olivia MD Work Phone: [email or web address] 12-22-2021 02:08-0400 Heart rate 77 /min Sharon Olivia MD Work Phone: [email or web address] 12-22-2021 02:08-0400 Respiratory rate 16 /min Sharon Olivia MD [facility] Phone: [facility] 12-22-2021 02:08-0400 SaO2% (BldA) [Mass fraction] 96 % Sharon Olivia MD Work Phone: [facility] 12-22-2021 02:08-0400 Systolic blood pressure 108 mm[Hg] Sharon Olivia MD Work Phone: [facility] 12-21-2021 23:52-0400 Body height 175.3 cm Sharon Olivia MD Work Phone: [facility] 12-21-2021 23:52-0400 Body mass index (BMI) [Ratio] 25.84 kg/m2 Sharon Olivia MD Work Phone: [facility] 12-21-2021 23:52-0400 Body temperature 97.9 [degF] Sharon Olivia MD Work Phone: [facility] 12-21-2021 23:52-0400 Body weight 79.38 kg Sharon Olivia MD Work Phone: [facility] 11-01-2021 08:41-0400 Diastolic blood pressure 77 mm[Hg] Dante Kim MD Work Phone: [facility] 11-01-2021 08:41-0400 Heart rate 75 /min Dante Kim MD Work Phone: [facility] 11-01-2021 08:41-0400 Respiratory rate 16 /min Dante Kim MD Work Phone: [facility] 11-01-2021 08:41-0400 SaO2% (BldA) [Mass fraction] 97 % Dante Kim MD Work Phone: [facility] 11-01-2021 08:41-0400 Systolic blood pressure 112 mm[Hg] Dante Kim MD Work Phone: [facility] 10-31-2021 19:13-0400 Body height 177.8 cm Dante Kim MD [facility] Phone: [facility] 10-31-2021 19:13-0400 Body mass index (BMI) [Ratio] 27.26 kg/m2 Dante Kim MD Work Phone: [facility] 10-31-2021 19:13-0400 Body temperature 98.49 [degF] Dante Kim MD Work Phone: [facility] 10-31-2021 19:13-0400 Body weight 86.18 kg Dante Kim MD Work Phone: [facility] 10-29-2021 07:38-0400 Body temperature 97.81 [degF] Lisa Miguel Angel DO Work Phone: [facility] 10-29-2021 07:38-0400 Diastolic blood pressure 79 mm[Hg] Lisa Miguel Angel DO Work Phone: [facility] 10-29-2021 07:38-0400 Heart rate 80 /min Lisa Miguel Angel DO Work Phone: [facility] 10-29-2021 07:38-0400 Respiratory rate 18 /min Lisa Miguel Angel DO Work Phone: [facility] 10-29-2021 07:38-0400 SaO2% (BldA) [Mass fraction] 96 % Lisa Miguel Angel DO Work Phone: [facility] 10-29-2021 07:38-0400 Systolic blood pressure 123 mm[Hg] Lisa Miguel Angel DO Work Phone: [facility] 10-25-2021 13:55-0400 Body height 170.2 cm Lisa Miguel Angel DO Work Phone: [facility] 10-21-2021 00:57-0400 Body mass index (BMI) [Ratio] 37.58 kg/m2 Lisa Miguel Angel DO Work Phone: [facility] 10-21-2021 00:57-0400 Body weight 108.86 kg Lisa Miguel Angel DO Work Phone: [facility] 07-13-2020 13:21-0500 BMI (Body Mass Index) 40.47 kg/m2 Monika Staley [facility] Work Phone: 07-13-2020 13:21-0500 Body Temperature 98 [degF] Monika Staley [facility] Work Phone: 07-13-2020 13:21-0500 Body weight 124.31 kg Monika Staley [facility] Work Phone: 07-13-2020 13:21-0500 BP Diastolic [...] Source: 04-13-2020 15:33-0500 0 1 Wing Ritter [facility] Work Phone: Comment on above: Pain Scale 01-20-2020 16:39-0400 Body height 175.26 cm Monika Staley MD [facility] [address] [place] Work Phone: 01-20-2020 16:39-0400 Body mass index (BMI) [Ratio] 39.28 kg/m2 Monika Staley MD LD-Luysmxxfsr-Eai [facility] [address] [place] Work Phone: 01-20-2020 16:39-0400 Body surface area Derived from formula 2.33 m2 Monika Staley MD XS-Oyusogudyl-Bld [facility] [address] [place] Work Phone: 01-20-2020 16:39-0400 Body weight 120.66 kg Monika Staley MD [facility] [address] [place] Work Phone: 01-20-2020 16:39-0400 Diastolic blood pressure 84 mm[Hg] Monika Staley MD NO-Rmmmntblrg-Unu [address] [place] Work Phone: Comment on above: Location: [facility]; Position: Sitting 01-20-2020 16:39-0400 Heart rate 80 /min Monika Staley MD [facility] [address] [place] Work Phone: 01-20-2020 16:39-0400 SaO2% (BldA) [Mass fraction] 100 % Monika Staley MD YQ-Yrkjtdvjqf-Myy [address] [place] Work Phone: Comment on above: Source: 01-20-2020 16:39-0400 Systolic blood pressure 144 mm[Hg] Monika Staley MD BF-Yhvibgwxjm-Xxu [address] [place] Work Phone: Comment on above: Location: [facility]; Position: Sitting 11-06-2019 15:29-0400 BMI (Body Mass Index) 38.31 kg/m2 [facility] Work Phone: 11-06-2019 15:29-0400 Body Temperature [...] Start: 03-16-2025 ambulatory Carlos Lópezsaros [facility] Faci lity:[facility] Start: 03-13-2025 ambulatory Carlos Katsaros OLS Faci lity:[facility] Start: 03-12-2025 ambulatory Mahaveer Mukka flash OLS Facility:[facility] Start: 03-11-2025 ambulatory Carlos Katsaros OLS Faci lity:[facility] Start: 03-09-2025 ambulatory Mahaveer Mukka flash OLS Facility:[facility] Start: 03-05-2025 ambulatory Mahaveer Mukka flash OLS Facility:[facility] Start: 03-02-2025 ambulatory Peter Katsaros OLS Faci lity:[facility] Start: 02-26-2025 ambulatory Mahaveer Mukka flash OLS Facility:[facility] Start: 02-23-2025 ambulatory Mahaveer Mukka flash OLS Facility:[facility] Start: 02-19-2025 ambulatory Mahaveer Mukka flash OLS Facility:[facility] Start: 02-16-2025 End: 02-16-2025 ambulatory Karon Delacruzlla OLS Facility:[facility] Start: 02-12-2025 [facility]istered [facility] Start: 02-12-2025 End: 02-12-2025 ambulatory Karon Delacruzlla OLS Facility:[facility] Start: 02-09-2025 Registered Referred Carlos Cavazos - [facility] Start: 02-09-2025 ambulatory Carlos Cavazos OLS Faci lity:[facility] Start: 02-05-2025 [facility]istered [facility] Start: 02-05-2025 End: 02-05-2025 ambulatory Karon Delacruzlla OLS Facility:[facility] Start: 02-02-2025 Registered Referred [facility] [employer] [facility] Start: 02-02-2025 End: 02-02-2025 ambulatory Karon Delacruzlla OLS Facility:[facility] Start: 01-29-2025 Registered [facility] Start: 01-29-2025 End: 01-29-2025 ambulatory Karon Delacruzlla OLS Facility:[facility] Start: 01-26-2025 Registered [facility] Start: 01-26-2025 End: 01-26-2025 ambulatory Karon Delacruzlla OLS Facility:[facility] Start: 01-22-2025 Registered [facility] Start: 01-22-2025 End: 01-22-2025 [facility] Start: 01-19-2025 Registered Referred Carlos Cavazos - [facility] [employer] Start: 01-19-2025 End: 01-19-2025 ambulatory Carlos Cavazos OLS Facility:[facility] Start: 01-15-2025 Registered Ref[facility] [employer] Start: 01-15-2025 End: 01-15-2025 ambulatory Karon Farmera OLS Facility:[facility] Start: 01-12-2025 Registered Referred Karon casillas MD -[facility] Start: 01-12-2025 End: 01-12-2025 ambulatory Karon Farmera OLS Facility:[facility] Start: 01-08-2025 Registered Referred Karon casillas MD [facility] Start: 01-08-2025 End: 01-08-2025 ambulatory Karon Farmera OLS Facility:[facility] Start: 01-06-2025 Registered Referred Karon casillas MD [facility] Start: 01-06-2025 End: 01-06-2025 ambulatory Karon Delacruzmarlenea OLS Facility:[facility] Start: 01-01-2025 End: 01-01-[address] Monika Staley MD Work Phone: -[facility] [employer] Start: 01-01-2025 End: 01-01-2025 Departed Referred Karon Corrales MD [facility] [employer] Start: 01-01-2025 Registered Referred Karon casillas MD -[facility] [employer] Start: 01-01-2025 End: 01-01-2025 ambulatory Carlavilmanoe Delacruzmarlenevnaessa OLS Facility:[facility] Start: 12-29-2024 Registered Referred Carlos Cavazos - [facility] [employer] Start: 12-29-2024 End: 12-29-2024 ambulatory Carlos Maribelkameron OLS Facility:[facility] Start: 12-26-2024 End: 12-26-[address] Monika Staley MD Work Phone: [facility] [employer] Start: 12-26-2024 End: 12-26-2024 Departed Referred Karon Corrales MD -[facility] [employer] Start: 12-26-2024 Registered Referred Karon casillas MD -[facility] [employer] Start: 12-26-2024 End: 12-26-2024 ambulatory Karon Delacruzlla OLS Facility:[facility] Start: 12-25-2024 Registered Ref[facility] [employer] [facility] Start: 12-24-2024 End: 12-25-2024 ambulatory Mahavenoe Hernandezkkminglla OLS Facility:[facility] Start: 12-24-2024 Registered Referred Carlos Cavazos - [facility] [employer] Start: 12-22-2024 ambulatory Karon Hernandezkka flash OLS Facility:[facility] Start: 12-22-2024 Registered Referred Karon casillas MD -[facility] [employer] Start: 12-18-2024 Registered [facility] Start: 12-18-2024 End: 12-18-2024 [facility] Start: 12-15-2024 [facility]ulatory [facility] Start: 12-15-2024 Registered Referred [facility] [employer] Start: 12-11-2024 Registered Referred Carlos Cavazos - [facility] [employer] Start: 12-11-2024 End: 12-11-2024 ambulatory Carlos Maribelsaros OLS Facility:[facility] Start: 12-08-2024 Registered Referred [facility] [employer] [facility] Start: 12-08-2024 End: 12-08-2024 ambulatory Karon Delacruzlla OLS Facility:[facility] Start: 12-04-2024 Registered Referred [facility] [employer] [facility] Start: 12-04-2024 End: 12-04-2024 ambulatory Carlaaveer Mukkamalla OLS Facility:[facility] Start: 12-02-2024 ambulatory [facility] Start: 12-02-2024 Registered Referred Karon [facility] [employer] Start: 12-01-2024 ambulatory Carlos NOVAK Faci lity:[facility] Start: 12-01-2024 Registered Referred Carlos Cavazos - [facility] [employer] Start: 11-28-2024 Registered Referred Carlos Cavazos - [facility] [employer] Start: 11-28-2024 End: 11-28-2024 ambulatory Carlos NOVAK Facility:[facility] Start: 11-27-2024 Registered Referred Karon casillas MD [facility] [employer] Start: 11-27-2024 End: 11-27-2024 ambulatory Karon NOVAK Facility:[facility] Start: 11-24-2024 ambulatory Karon NOVAK Facility:[facility] Start: 11-24-2024 Registered Referred Karon [facility] [employer] Start: 11-20-2024 Registered Referred Karon casillas MD -[facility] [employer] Start: 11-20-2024 End: 11-20-2024 ambulatory Karon NOVAK Facility:[facility] Start: 11-17-2024 ambulatory Monika Carlos ty:[facility] Start: 11-17-2024 Registered Referred Karon casillas MD -[facility] [employer] Start: 11-13-2024 ambulatory Monika Carlos ty:[facility] Start: 11-13-2024 Registered Referred Karon casillas MD [facility] [employer] Start: 11-10-2024 ambulatory Karon NOVAK Facility:[facility] Start: 11-10-2024 Registered Referred Karon [facility] [employer] Start: 11-06-2024 Registered Referred Karon casillas MD [facility] [employer] Start: 11-06-2024 End: 11-06-2024 ambulatory Karon NOVAK Facility:[facility] Start: 11-03-2024 End: 11-03-[address] Monika Staley MD Work Phone: [facility] [employer] Start: 11-03-2024 End: 11-03-2024 Departed Referred Carlos Cavazos [facility] [employer] Start: 11-03-2024 Registered Referred Carlos Cavazos - [facility] [employer] [facility] Start: 11-03-2024 End: 11-03-2024 ambulatory Carlos NOVAK Facility:[facility] Start: 10-30-2024 End: 10-30-[address] Monika Staley MD Work Phone: [facility] [employer] Start: 10-30-2024 End: 10-30-2024 Departed Referred Karon Corrales MD -[facility] [employer] Start: 10-30-2024 Registered Referred Karon casillas MD -[facility] [employer] Start: 10-30-2024 End: 10-30-2024 ambulatory Monika Staley Facility:[facility] Start: 10-27-2024 Registered Referred Karon casillas MD [facility] [employer] Start: 10-27-2024 End: 10-27-2024 ambulatory Karon NOVAK Facility:[facility] Start: 10-23-2024 Registered Referred Karon casillas MD [facility] [employer] Start: 10-23-2024 End: 10-23-2024 ambulatory Monika Staley Facility:[facility] Start: 10-20-2024 End: 10-20-[address] Monika Staley MD Work Phone: [facility] [employer] Start: 10-20-2024 End: 10-20-2024 Departed Referred Karon Corrales MD [facility] [employer] Start: 10-20-2024 Registered Referred Karon casillas MD -[facility] [employer] Start: 10-20-2024 End: 10-20-2024 ambulatory Karon NOVAK Facility:[facility] Start: 10-16-2024 ambulatory Monika Horner Luís Facili ty:[facility] Start: 10-16-2024 Registered Ref[facility] Start: 10-13-2024 ambulatory Carlos NOVAK Faci lity:[facility] Start: 10-13-2024 Registered Referred Carlos Cavazos - [facility] [employer] Start: 10-09-2024 ambulatory Monika Horner Luís Facili ty:[facility] Start: 10-09-2024 Registered Referred Karon casillas MD [facility] [employer] Start: 10-06-2024 ambulatory Carlos NOVAK Faci lity:[facility] Start: 10-06-2024 Registered Referred Carlos Cavazos - [facility] [employer] [facility] Start: 10-02-2024 ambulatory Monika Horner Luís Facili ty:[facility] Start: 10-02-2024 Registered Referred Karon casillas MD -[facility] [employer] Start: 09-30-2024 End: 09-30-[address] Monika Staley MD Work Phone: [facility] Work Phone: Start: 09-30-2024 End: 09-30-2024 Departed Referred Karon Corrales MD -[facility] [employer] Start: 09-30-2024 Registered [facility] [employer] Start: 09-30-2024 End: 09-30-2024 ambulatory Karon NOVAK Facility:[facility] Start: 09-25-2024 ambulatory Karon NOVAK Facility:[facility] Start: 09-25-2024 Registered Referred Karon ReederLonoke Kathy [employer] Start: 09-22-2024 End: 09-22-[address] Monika Staley MD Work Phone: [facility] [employer] Start: 09-22-2024 End: 09-22-2024 Departed Referred Karon Corrales MD [facility] [employer] [facility] Start: 09-22-2024 Registered Referred Karon casillas MD -[facility] [employer] Start: 09-22-2024 End: 09-22-2024 ambulatory Karon NOVAK Facility:[facility] Start: 09-18-2024 End: 09-18-[address] Monika Staley MD Work Phone: [facility] [employer] Start: 09-18-2024 End: 09-18-2024 Departed Referred Karon Corrales MD -[facility] [employer] Start: 09-18-2024 Registered Referred Karon casillas MD -[facility] [employer] Start: 09-18-2024 End: 09-18-2024 ambulatory Karon NOVAK Facility:[facility] Start: 09-15-2024 End: 09-15-[address] Monika Staley MD Work Phone: [facility] Work Phone: Start: 09-15-2024 End: 09-15-2024 Departed Referred Carlos Cavazos [facility] [employer] Start: 09-15-2024 Registered Referred Carlos Cavazos - [facility] [employer] [facility] Start: 09-15-2024 End: 09-15-2024 ambulatory Carlos NOVAK Facility:[facility] Start: 09-11-2024 ambulatory Karon NOVAK Facility:[facility] Start: 09-11-2024 Registered Referred Karon casillas MD -[facility] [employer] Start: 09-08-2024 End: 09-08-[address] Monika Staley MD Work Phone: [facility] Work Phone: Start: 09-08-2024 End: 09-08-2024 Departed Referred Karon Corrales MD [facility] [facility] Start: 09-08-2024 Registered Referred Karon casillas MD -[facility] [employer] Start: 09-08-2024 End: 09-08-2024 ambulatory Karon NOVAK Facility:[facility] Start: 09-04-2024 End: 09-04-2024 Departed Referred Carlos Cavazos [facility] [employer] [facility] Start: 09-04-2024 Registered Referred Carlos Cavazos - [employer] [employer] Start: 09-04-2024 End: 09-04-2024 ambulatory Carlos Cavazos OLS Facility:[facility] Start: 09-01-2024 End: 09-01-[address] Monika Staley MD Work Phone: [facility] Work Phone: Start: 09-01-2024 End: 09-01-2024 Departed Referred Carlos Cavazos [facility] [employer] Start: 09-01-2024 Registered Referred Carlos Maribelkameron - [facility] [employer] [facility] Start: 09-01-2024 End: 09-01-2024 ambulatory Carlos NOVAK Facility:[facility] Start: 08-28-2024 End: 08-28-[address] Monika Staley MD Work Phone: [facility] Work Phone: Start: 08-28-2024 End: 08-28-2024 Departed Referred Carlos Cavazos [facility] Start: 08-28-2024 Registered Referred Carlos Abdelrahmanros - [facility] [employer] Start: 08-28-2024 End: 08-28-2024 ambulatory Carlos NOVAK Facility:[facility] Start: 08-25-2024 End: 08-25-[address] Monika Staley MD Work Phone: [facility] Work Phone: Start: 08-25-2024 End: 08-25-2024 Departed Referred Karon Corrales MD -[facility] [employer] Start: 08-25-2024 Registered Referred Karon casillas MD -[facility] [employer] Start: 08-25-2024 End: 08-25-2024 ambulatory Carlaamber Morrisonmingshellie OLS Facility:[facility] Start: 08-21-2024 End: 08-21-[address] Monika Staley MD Work Phone: [facility] Work Phone: Start: 08-21-2024 End: 08-21-2024 Departed Referred Karon Corrales [facility] [employer] Start: 08-21-2024 Registered Referred Karon casillas MD [facility] Start: 08-21-2024 End: 08-21-2024 ambulatory Carlaamber Davidinga OLS Facility:[facility] Start: 08-18-2024 End: 08-18-[address] Monika Staley MD Work Phone: [facility] Work Phone: Start: 08-18-2024 End: 08-18-2024 Departed Referred Karon Corrales MD -[facility] [employer] Start: 08-18-2024 Registered Referred Karon casillas MD -[facility] [employer] Start: 08-18-2024 End: 08-18-2024 ambulatory Carlavilmanoe Hernandzeelismingshellie OLS Facility:[facility] Start: 08-14-2024 End: 08-14-[address] Monika Staley MD Work Phone: [facility] Work Phone: Start: 08-14-2024 End: 08-14-2024 Departed Referred Karon Corrales MD -[facility] [employer] Start: 08-14-2024 Registered Referred Karon casillas MD -[facility] [employer] Start: 08-14-2024 End: 08-14-2024 ambulatory Carlaamber Corrales OLS Facility:[facility] Start: 08-11-2024 End: 08-11-2024 Departed Referred Karon Corrales MD [facility] Start: 08-11-2024 Registered Referred Karon casillas MD -[facility] Start: 08-11-2024 End: 08-11-2024 ambulatory Karon NOVAK Facility:[facility] Start: 08-07-2024 End: 08-07-2024 Departed Referred Carlos Maribelsaros [facility] Start: 08-07-2024 Registered Referred Carlos Maribelsaros - [facility] Start: 08-07-2024 End: 08-07-2024 ambulatory Carlos NOVAK Facility:[facility] Start: 08-04-2024 End: 08-04-[address] Monika Staley MD Work Phone: [facility] Work Phone: Start: 08-04-2024 End: 08-04-2024 Departed Referred Carlos Mariblesaros [facility] Start: 08-04-2024 Registered Referred Carlos Maribelsaros - [facility] Start: 08-04-2024 End: 08-04-2024 ambulatory Carlos NOVAK Facility:[facility] Start: 07-31-2024 End: 07-31-[address] Monika Staley MD Work Phone: [facility] Work Phone: Start: 07-31-2024 End: 07-31-2024 Departed Referred Karon Corrales MD -[facility] Start: 07-31-2024 Registered Referred Karon casillas MD -[facility] Start: 07-31-2024 End: 07-31-2024 ambulatory Karon NOVAK Facility:[facility] Start: 07-28-2024 End: 07-28-[address] Monika Staley MD Work Phone: [facility] Work Phone: Start: 07-28-2024 End: 07-28-2024 Departed Referred Karon Corrales MD -[facility] [employer] Start: 07-28-2024 Registered Referred Karon casillas MD -[facility] Start: 07-28-2024 End: 07-28-2024 ambulatory Karon NOVAK Facility:[facility] Start: 07-25-2024 End: 07-25-[address] Monika Staley MD Work Phone: [facility] Work Phone: Start: 07-25-2024 End: 07-25-2024 Departed Referred Carlos Cavazos [facility] Start: 07-25-2024 Registered Referred Carlos Reeder [facility] Start: 07-24-2024 End: 07-25-[address] Monika Staley MD Work Phone: [facility] Work Phone: Start: 07-24-2024 End: 07-24-2024 Departed Referred Karon Corrales MD [facility] [employer] Start: 07-24-2024 Registered Referred Karon casillas MD -[facility] [employer] Start: 07-24-2024 End: 07-24-2024 ambulatory Karon NOVAK Facility:[facility] Start: 07-21-2024 End: 07-21-[address] Monika Staley MD Work Phone: [facility] Work Phone: Start: 07-21-2024 End: 07-21-2024 Departed Referred Karon Corrales MD -[facility] [employer] Start: 07-21-2024 Registered Referred Karon ReederLonoke [facility] [employer] Start: 07-21-2024 End: 07-21-2024 ambulatory Karon NOVAK Facility:[facility] Start: 07-17-2024 End: 07-17-[address] Monika Staley MD Work Phone: [facility] Work Phone: Start: 07-17-2024 End: 07-17-2024 Departed Referred Karon Corrales MD -[facility] [employer] Start: 07-17-2024 Registered Referred Karon casillas MD -[facility] Start: 07-17-2024 End: 07-17-2024 ambulatory Karon NOVAK Facility:[facility] Start: 07-14-2024 End: 07-14-[address] Monika Staley MD Work Phone: [facility] Work Phone: Start: 07-14-2024 End: 07-14-2024 Departed Referred Carlos Cavazos [facility] Start: 07-14-2024 Registered Referred Carlos Lópezsaviri - [facility] Start: 07-14-2024 End: 07-14-2024 ambulatory Carlos NOVAK Facility:[facility] Start: 07-11-2024 End: 07-11-[address] Monika Staley MD Work Phone: [facility] Work Phone: Start: 07-11-2024 End: 07-11-2024 Departed Referred Carlos Cavazos [facility] Start: 07-11-2024 Registered Referred Carlos L[facility]pezsaviri - [facility] Start: 07-11-2024 End: 07-11-2024 ambulatory Carlos NOVAK Facility:[facility] Start: 07-07-2024 End: 07-07-[address] Monika Staley MD Work Phone: [facility] Work Phone: Start: 07-07-2024 End: 07-07-2024 Departed Referred Karon Corrales MD -[facility] Start: 07-07-2024 Registered Referred [facility] Start: 07-07-2024 End: 07-07-2024 ambulatory Karon NOVAK Facility:[facility] Start: 07-03-2024 End: 07-03-[address] Monika Staley MD Work Phone: [facility] Work Phone: Start: 07-03-2024 End: 07-03-2024 Departed Referred Kvng Crisostomo MD -[facility] Start: 07-03-2024 Registered Referred Kvng Crisostomo MD -[facility] Start: 07-03-2024 End: 07-03-2024 ambulatory Kvng NOVAK Facility:[facility] Start: 06-30-2024 End: 06-30-[address] Monika Staley MD Work Phone: [facility] Work Phone: Start: 06-30-2024 End: 06-30-2024 Departed Referred Kvng Crisostomo MD -[facility] Start: 06-30-2024 Registered Referred Kvng Crisostomo MD -[facility] Start: 06-30-2024 End: 06-30-2024 ambulatory Kvng NOVAK Facility:[facility] Start: 06-26-2024 ambulatory Kvng NOVAK Fac ility:[facility] Start: 06-26-2024 Registered Referred Kvng Crisostomo MD -[facility] Start: 06-23-2024 End: 06-23-[address] Monika Staley MD Work Phone: [facility] Work Phone: Start: 06-23-2024 End: 06-23-2024 Dep[facility]ed Referred [facility] [employer] Start: 06-23-2024 Registered Referred Carlos Reeder [facility] [employer] Start: 06-23-2024 End: 06-23-2024 ambulatory Carlos NOVAK Facility:[facility] Start: 06-19-2024 End: 06-19-[address] Monkia Staley MD Work Phone: [facility] Work Phone: Start: 06-19-2024 End: 06-19-2024 Departed Referred Kvng Crisostomo MD -[facility] [employer] Start: 06-19-2024 Registered Referred Kvng Crisostomo MD -[facility] [employer] Start: 06-19-2024 End: 06-19-2024 ambulatory Monika Staley Facility:[facility] Start: 06-16-2024 End: 06-16-[address] Monika Staley MD Work Phone: [facility] Work Phone: Start: 06-16-2024 End: 06-16-2024 Departed Referred Kvng Crisostomo MD -[facility] [employer] Start: 06-16-2024 Registered Referred Kvng Crisostomo MD -[facility] [employer] Start: 06-16-2024 End: 06-16-2024 ambulatory Monika Staley Facility:[facility] Start: 06-12-2024 End: 06-12-[address] Monika Staley MD Work Phone: [facility] Work Phone: Start: 06-12-2024 End: 06-12-2024 Departed Referred Kvng Crisostomo MD -[facility] [employer] Start: 06-12-2024 Registered Referred Kvng Crisostomo MD -[facility] [employer] Start: 06-12-2024 End: 06-12-2024 ambulatory Kvng NOVAK Facility:[facility] Start: 06-09-2024 End: 06-09-[address] Monika Staley MD Work Phone: [facility] Work Phone: Start: 06-09-2024 End: 06-09-2024 Departed Referred Carlos Chavez [employer] Start: 06-09-2024 Registered Referred Carlos Chavez [employer] Start: 06-09-2024 End: 06-09-2024 ambulatory Monika Staley Facility:[facility] Start: 06-05-2024 End: 06-05-[address] Monika Staley MD Work Phone: [facility] Work Phone: Start: 06-05-2024 End: 06-05-2024 Departed Referred Kvng Mcclain [facility] [employer] Start: 06-05-2024 End: 06-05-2024 ambulatory Kvng NOVAK Facility:[facility] Start: 06-02-2024 End: 06-02-[address] Monika Staley MD Work Phone: [facility] Work Phone: Start: 06-02-2024 End: 06-02-2024 Departed Referred [facility] [employer] Start: 06-02-2024 Registered Referred Kvng Crisostomo MD -[facility] [employer] Start: 06-02-2024 End: 06-02-2024 ambulatory Kvng NOVAK Facility:[facility] Start: 05-29-2024 End: 05-29-[address] Monika Staley MD Work Phone: [facility] Work Phone: Start: 05-29-2024 End: 05-29-2024 Departed Referred Kvng [facility]clain [facility] [employer] Start: 05-29-2024 Registered Referred K[facility]ng [facility] Start: 05-29-2024 End: 05-29-2024 ambulatory Kvng NOVAK Facility:[facility] Start: 05-26-2024 End: 05-26-[address] Monika Staley MD Work Phone: [facility] Work Phone: Start: 05-26-2024 End: 05-26-2024 Departed [facility]erred [facility] Start: 05-26-2024 Registered Referred Carlos Reeder [facility] Start: 05-26-2024 End: 05-26-2024 ambulatory Carlos NOVAK Facility:[facility] Start: 05-22-2024 ambulatory Kvng NOVAK Fac ility:[facility] Start: 05-22-2024 Registered Ref[facility] Start: 05-20-2024 End: 05-20-2024 [facility] Start: 05-19-2024 End: 05-20-2024 ambulatory Kvng NOVAK Facility:[facility] Start: 05-19-2024 Registered [facility] Start: 05-15-2024 End: 05-15-2024 [facility]arted [facility] Start: 05-15-2024 End: 05-15-2024 ambulatory Kvng NOVAK Facility:[facility] Start: 05-12-2024 End: 05-12-2024 Departed Referred Carlos [facility] Start: 05-12-2024 End: 05-12-2024 ambulatory Carlos NOVAK Facility:[facility] Start: 05-09-2024 End: 05-09-2024 Departed Ref[facility] Start: 05-09-2024 End: 05-09-2024 ambulatory Kvng NOVAK Facility:[facility] Start: 05-08-2024 End: 05-08-2024 [facility]ed [facility] Start: 05-08-2024 End: 05-08-2024 ambulatory Kvng Crisostomoluis enrique NOVAK Facility:[facility] Start: 05-05-2024 End: 05-05-2024 Departed Referred Kvng Crisostomo MD -[facility] [employer] Start: 05-05-2024 End: 05-05-2024 ambulatory Vicenterocio Jonesluis enrique NOVAK Facility:[facility] Start: 05-01-2024 End: 05-01-2024 Departed Referred Kvng Crisostomo MD -[facility] [employer] Start: 05-01-2024 End: 05-01-2024 ambulatory Vicenterocio Andressa NOVAK Facility:[facility] Start: 04-28-2024 End: 04-28-2024 Departed Referred Carlos Cavazos [facility] [employer] Start: 04-28-2024 End: 04-28-2024 ambulatory Carlos NOVAK Facility:[facility] Start: 04-24-2024 End: 04-24-2024 Departed Referred Kvng Crisostomo MD -[facility] [employer] Start: 04-24-2024 End: 04-24-2024 ambulatory Vicenterocio Andressa NOVAK Facility:[facility] Start: 04-21-2024 End: 04-21-2024 Departed Referred Carlos Cavazos [facility] [employer] Start: 04-21-2024 End: 04-21-2024 ambulatory Carlos NOVAK Facility:[facility] Start: 04-17-2024 ambulatory Vicenterocio Jonesur OLS Fac ility:[facility] Start: 04-17-2024 Registered Referred [facility] [employer] Start: 04-14-2024 ambulatory Vicenterocio Jonesluis enrique NOVAK Fac ility:[facility] Start: 04-14-2024 Registered Referred Kvng Crisostomo MD -[facility] [employer] Start: 04-10-2024 End: 04-10-2024 Departed Referred [facility] [employer] Start: 04-10-2024 End: 04-10-2024 ambulatory Vicentesigifredokarolmilton Andressa NOVAK Facility:[facility] Start: 04-07-2024 End: 04-07-2024 Departed Referred Carlos Cavazos [facility] Start: 04-07-2024 End: 04-07-2024 ambulatory Carlos NOVAK Facility:[facility] Start: 04-04-2024 ambulatory Kvng NOVAK Fac ility:[facility] Start: 04-04-2024 Registered Referred Kvng Crisostomo [facility] Start: 03-31-2024 End: 03-31-2024 Departed Referred Carlos Cavazos [facility] Start: 03-31-2024 End: 03-31-2024 ambulatory Carlos NOVAK Facility:[facility] Start: 03-27-2024 End: 03-27-2024 Departed Referred [facility] Start: 03-27-2024 End: 03-27-2024 ambulatory [facility] Facility[facility] Start: 03-24-2024 End: 03-24-2024 Departed Referred Kvng Crisostomo [facility] Start: 03-24-2024 End: 03-24-2024 ambulatory Kvng NOVAK Facility:[facility] Start: 03-20-2024 End: 03-20-2024 Departed Referred [facility] Start: 03-20-2024 End: 03-20-2024 ambulatory [facility] Facility[facility] Start: 03-19-2024 End: 03-19-2024 Departed Referred Kvng Crisostomo MD [facility] Start: 03-19-2024 End: 03-19-2024 ambulatory Kvng NOVAK Facility:[facility] Start: 03-18-2024 End: 03-18-2024 Departed Referred [facility] Start: 03-17-2024 End: 03-17-2024 Departed Referred [facility] Start: 03-14-2024 End: 03-14-2024 Departed Referred Carlos Cavazos [facility] Start: 03-13-2024 End: 03-13-2024 Departed Referred [facility] Start: 09-13-2023 End: 09-13-2023 ambulatory [facility] Start: 09-13-2023 End: 09-13-2023 Office outpatient visit 25 minutes Rebecca Buck MD Work Phone: [facility] Comment on above: Left flank pain (Christina magui Dx); BPH with urinary obstruction; History of kidney stones Start: 09-06-2023 End: 09-07-2023 ambulatory [facility] Start: 09-06-2023 End: 09-06-2023 Subsequent hospital visit by physician Rebecca Buck MD Work Phone: [facility] CT Imaging Comment on above: Left flank pain; Calculus of ureter Start: 08-31-2023 [facility] Start: 08-31-2023 [facility] Start: 08-21-2023 Telephone encounter Rebecca Buck MD Work Phone: [facility] Clinical Communication Comment on above: CT appt Boaz advice Start: 08-21-2023 [facility] Start: 08-13-2023 End: 08-13-2023 ambulatory [facility] Start: 08-13-2023 End: 08-13-2023 Office outpatient new 45 minutes Rebecca Buck MD Work Phone: [facility] Comment on above: Left flank pain (Christina magui Dx); Calculus of ureter; Disease of prostate; BPH with urinary obstruction Start: 08-03-2023 End: 08-03-2023 ambulatory [facility] Work Phone: Start: 08-03-2023 End: 08-03-2023 Departed Referred [facility] Start: 07-20-2023 End: 07-20-2023 ambulatory [facility] Work Phone: Start: 07-20-2023 End: 07-20-2023 Departed Referred [facility] Start: 07-20-2023 Registered Referred [facility] Start: 07-18-2023 End: 07-18-2023 ambulatory [facility] Work Phone: Start: 07-18-2023 End: 07-18-2023 [facility] Start: 07-18-[facility]23 [facility] Start: 07-16-2023 End: 07-16-2023 ambulatory [facility] Work Phone: Start: 07-16-2023 End: 07-16-2023 [facility] Start: 07-16-2023 [facility] Start: 07-13-2023 End: 07-13-2023 ambulatory [facility] Work Phone: Start: 07-13-2023 End: 07-13-2023 [facility] Start: 07-13-2023 [facility] Start: 07-12-2023 End: 07-12-2023 ambulatory [facility] Work Phone: Start: 07-12-2023 End: 07-12-2023 [facility] Start: 07-12-2023 Registered Referred [facility] Start: 07-05-2023 End: 07-05-2023 ambulatory [facility] Work Phone: Start: 07-05-2023 End: 07-05-2023 [facility] Start: 07-05-2023 [facility] Start: 07-02-2023 [facility] Start: 06-28-2023 End: 06-28-2023 ambulatory [facility] Work Phone: Start: 06-28-2023 End: 06-28-2023 [facility] Start: 06-28-2023 [facility] Start: 06-25-2023 Telephone encounter Rebecca Buck MD Work Phone: [facility] Start: 06-25-2023 End: 06-25-2023 ambulatory [facility] Work Phone: Start: 06-25-2023 End: 06-25-2023 [facility] Start: 06-25-2023 [facility] Start: 06-21-2023 End: 06-21-2023 ambulatory [facility] Work Phone: Start: 06-21-2023 End: 06-21-2023 [facility] Start: 06-21-2023 [facility] Start: 06-13-2023 End: 06-13-2023 ambulatory [facility] Work Phone: Start: 06-13-2023 End: 06-13-2023 [facility] Start: 06-06-2023 End: 06-06-2023 ambulatory [facility] Work Phone: Start: 06-06-2023 End: 06-06-2023 [facility] Start: 06-06-2023 [facility] Start: 05-23-2023 End: 05-23-2023 ambulatory [facility] Work Phone: Start: 05-23-2023 End: 05-23-2023 [facility] Start: 05-09-2023 End: 05-09-2023 [facility] Start: 05-09-2023 [facility] Start: 04-23-2023 End: 04-23-2023 [facility] Start: 04-09-2023 End: 04-09-2023 ambulatory [facility] Work Phone: Start: 04-09-2023 End: 04-09-2023 [facility] Start: 04-09-2023 [facility] Start: 04-02-2023 End: 04-02-2023 ambulatory [facility] Work Phone: Start: 04-02-2023 End: 04-02-2023 [facility] Start: 04-02-2023 [facility] Start: 03-26-2023 End: 03-26-2023 ambulatory [facility] Work Phone: Start: 03-26-2023 End: 03-26-2023 [facility] Start: 03-26-2023 [facility] Start: 03-22-2023 End: 03-22-2023 ambulatory [facility] Work Phone: Start: 03-22-2023 End: 03-22-2023 [facility] Start: 03-22-2023 [facility] Start: 03-08-2023 End: 03-08-2023 ambulatory [facility] Work Phone: Start: 03-08-2023 End: 03-08-2023 [facility] Start: 02-22-2023 End: 02-22-2023 ambulatory [facility] Work Phone: Start: 02-22-2023 End: 02-22-2023 [facility] Start: 02-22-2023 Registered Referred [facility] Start: 02-15-2023 End: 02-15-2023 ambulatory [facility] Work Phone: Start: 02-15-2023 End: 02-15-2023 Departed Referred [facility] Start: 02-15-2023 Registered Referred [facility] Start: 02-08-2023 End: 02-08-2023 ambulatory [facility] Work Phone: Start: 02-08-2023 End: 02-08-2023 Departed Referred [facility] Start: 01-31-2023 End: 01-31-2023 ambulatory [facility] Work Phone: Start: 01-31-2023 End: 01-31-2023 Dep[facility] Start: 01-31-2023 Registered Referred [facility] Start: 01-29-2023 End: 01-29-2023 [facility] Start: 01-29-2023 Registered Referred [facility] Start: 01-26-2023 End: 01-26-2023 [facility] Start: 01-26-2023 Registered Referred [facility] Start: 01-24-2023 End: 01-24-2023 Dep[facility] Start: 01-24-2023 Registered Referred [facility] Start: 01-22-2023 End: 01-22-2023 ambulatory [facility] Work Phone: Start: 01-22-2023 End: 01-22-2023 [facility] Start: 01-22-2023 [facility] Start: 01-10-2023 End: 01-10-2023 ambulatory [facility] Work Phone: Start: 01-10-2023 End: 01-10-2023 [facility] Start: 01-10-2023 [facility] Start: 12-27-2022 End: 12-27-2022 ambulatory [facility] Work Phone: Start: 12-27-2022 End: 12-27-2022 [facility] Start: 12-27-2022 [facility] Start: 12-21-2022 End: 12-21-2022 ambulatory [facility] Work Phone: Start: 12-21-2022 End: 12-21-2022 [facility] Start: 12-21-2022 [facility] Start: 12-14-2022 End: 12-14-2022 ambulatory [facility] Work Phone: Start: 12-14-2022 End: 12-14-2022 [facility] Start: 12-14-2022 [facility] Start: 12-07-2022 End: 12-07-2022 ambulatory [facility] Work Phone: Start: 12-07-2022 End: 12-07-2022 [facility] Start: 12-07-2022 [facility] Start: 11-24-2022 End: 11-24-2022 ambulatory [facility] Work Phone: Start: 11-24-2022 End: 11-24-2022 Departed Referred [facility] Start: 11-24-2022 Registered Referred [facility] Start: 11-23-2022 End: 11-23-2022 ambulatory [facility] Work Phone: Start: 11-23-2022 End: 11-23-2022 [facility] Start: 11-23-2022 [facility] Start: 11-22-2022 End: 11-22-2022 ambulatory [facility] Work Phone: Start: 11-22-2022 End: 11-22-2022 [facility] Start: 11-22-2022 [facility] Start: 11-09-2022 End: 11-09-2022 ambulatory [facility] Work Phone: Start: 11-09-2022 End: 11-09-2022 [facility] Start: 11-09-2022 Registered Referred [facility] Start: 10-26-2022 End: 10-26-2022 [facility] Start: 10-26-2022 Registered Referred [facility] Start: 10-12-2022 End: 10-12-2022 ambulatory [facility] Work Phone: Start: 10-12-2022 End: 10-12-2022 [facility] Start: 10-12-2022 [facility] Start: 10-05-2022 End: 10-05-2022 [facility] Start: 10-05-2022 [facility] Start: 09-28-2022 End: 09-28-2022 ambulatory [facility] Work Phone: Start: 09-28-2022 End: 09-28-2022 [facility] Start: 09-14-2022 End: 09-14-2022 [facility] Start: 08-31-2022 End: 08-31-2022 [facility] Start: 08-31-2022 [facility] Start: 08-23-2022 End: 08-23-2022 ambulatory [facility] Work Phone: Start: 08-23-2022 End: 08-23-2022 [facility] Start: 08-23-2022 [facility] Start: 08-17-2022 End: 08-17-2022 ambulatory [facility] Work Phone: Start: 08-17-2022 End: 08-17-2022 [facility] Start: 08-17-2022 [facility] Start: 08-14-2022 End: 08-14-2022 ambulatory [facility] Work Phone: Start: 08-14-2022 End: 08-14-2022 [facility] Start: 08-14-2022 [facility] Start: 07-31-2022 End: 07-31-2022 ambulatory [facility] Work Phone: Start: 07-31-2022 End: 07-31-2022 [facility] Start: 07-31-2022 Registered Referred [facility] Start: 07-24-2022 End: 07-24-2022 ambulatory [facility] Work Phone: Start: 07-24-2022 End: 07-24-2022 [facility] Start: 07-24-2022 Registered Referred [facility] Start: 07-20-2022 End: 07-20-2022 [facility] Start: 07-20-2022 Registered Ref[facility] Start: 07-17-2022 End: 07-17-2022 [facility] Start: 07-17-2022 [facility] Start: 07-11-2022 [facility] Start: 07-10-2022 End: 07-10-2022 ambulatory [facility] Work Phone: Start: 07-10-2022 End: 07-10-2022 [facility] Start: 07-10-2022 [facility] Start: 07-03-2022 End: 07-03-2022 ambulatory [facility] Work Phone: Start: 07-03-2022 End: 07-03-2022 [facility] Start: 07-03-2022 [facility] Start: 06-27-2022 End: 06-27-2022 ambulatory [facility] Work Phone: Start: 06-27-2022 End: 06-27-2022 [facility] Start: 06-27-2022 [facility] Start: 06-13-2022 End: 06-13-2022 ambulatory [facility] Work Phone: Start: 06-13-2022 End: 06-13-2022 Departed [facility]erred [facility] Start: 06-13-2022 Registered Referred [facility] Start: 06-06-2022 End: 06-06-2022 ambulatory [facility] Work Phone: Start: 06-06-2022 End: 06-06-2022 [facility] Start: 06-06-2022 [facility] Start: 05-30-2022 End: 05-30-2022 ambulatory [facility] Work Phone: Start: 05-30-2022 End: 05-30-2022 [facility] Start: 05-30-2022 [facility] Start: 05-16-2022 End: 05-16-2022 ambulatory [facility] Work Phone: Start: 05-16-2022 End: 05-16-2022 [facility] Start: 05-16-2022 Registered Referred [facility] Start: 05-02-2022 End: 05-02-2022 ambulatory [facility] Work Phone: Start: 05-02-2022 End: 05-02-2022 [facility] Start: 05-02-2022 [facility] Start: 04-27-2022 End: 04-27-2022 ambulatory [facility] Work Phone: Start: 04-27-2022 End: 04-27-2022 [facility] Start: 04-27-2022 Registered Referred [facility] Start: 04-26-2022 End: 04-26-2022 ambulatory [facility] Work Phone: Start: 04-26-2022 End: 04-26-2022 Departed [facility] Start: 04-11-2022 End: 04-11-2022 ambulatory [facility] Work Phone: Start: 04-11-2022 End: 04-11-2022 Departed [facility]erred [facility] Start: 03-28-2022 End: 03-28-2022 Departed Referred [facility] Start: 03-28-2022 Registered Referred [facility] Start: 03-23-2022 End: 03-23-2022 Departed Referred [facility] Start: 03-23-2022 Registered Referred [facility] Start: 03-16-2022 End: 03-16-2022 ambulatory [facility] Work Phone: Start: 03-16-2022 End: 03-16-2022 Departed [facility]erred [facility] Start: 03-16-2022 Registered Referred [facility] Start: 03-09-2022 End: 03-09-2022 ambulatory [facility] Work Phone: Start: 03-09-2022 End: 03-09-2022 Departed [facility]erred [facility] Start: 03-09-2022 Registered Referred [facility] Start: 03-06-2022 End: 03-06-2022 ambulatory [facility] Work Phone: Start: 03-06-2022 End: 03-06-2022 [facility] Start: 03-06-2022 Registered [facility] Start: 03-02-2022 End: 03-03-2022 Emergency department patient visit UNKNOWN PROVIDER [facility] Start: 03-02-2022 End: 03-02-2022 Emergency department patient visit Lanette Munguia Work Phone: [facility] Emergency Dept Comment on above: Fall, initial encoun ter (Primary Dx); Anticoagulated Start: 02-20-2022 End: 02-20-2022 Departed Referred [facility] [employer] Start: 02-20-2022 Registered Referred [facility] Start: 02-13-2022 End: 02-13-2022 ambulatory [facility] Work Phone: Start: 02-13-2022 End: 02-13-2022 Departed Referred [facility] Start: 02-13-2022 Registered Referred [facility] Start: 02-06-2022 End: 02-06-2022 ambulatory [facility] Work Phone: Start: 02-06-2022 End: 02-06-2022 Departed Referred [facility] [employer] Start: 02-06-2022 Registered [facility] Start: 01-30-2022 End: 01-30-2022 Departed Referred [facility] Start: 01-30-2022 Registered Ref[facility] Start: 01-26-2022 End: 01-26-2022 ambulatory [facility] Work Phone: Start: 01-26-2022 End: 01-26-2022 Departed Referred [facility] [employer] Start: 01-26-2022 Registered Referred [facility] Start: 01-19-2022 End: 01-19-2022 ambulatory [facility] Work Phone: Start: 01-19-2022 End: 01-19-2022 [facility] Start: 01-19-2022 [facility] Start: 01-17-2022 ambulatory [facility] Start: 01-10-2022 ambulatory [facility] Start: 01-10-2022 End: 01-10-2022 ambulatory [facility] Work Phone: Start: 01-10-2022 End: 01-10-2022 [facility] Start: 01-10-2022 Registered Referred [facility] Start: 01-06-2022 AUDIT Monika Elias rt Work Phone: [facility] Work Phone: Start: 01-05-2022 End: 01-05-2022 [facility] Start: 01-05-2022 [facility] Start: 12-30-2021 End: 12-30-2021 [facility] Start: 12-30-2021 Registered Referred [facility] Start: 12-28-2021 End: 12-28-2021 ambulatory [facility] Work Phone: Start: 12-28-2021 End: 12-28-2021 [facility] Start: 12-28-2021 [facility] Start: 12-26-2021 End: 12-26-2021 ambulatory [facility] Work Phone: Start: 12-26-2021 End: 12-26-2021 [facility] Start: 12-26-2021 [facility] Start: 12-22-2021 End: 12-22-2021 ambulatory [facility] Work Phone: Start: 12-22-2021 End: 12-22-2021 Departed Referred [facility] Start: 12-22-2021 Registered [facility] Start: 12-22-2021 End: 12-22-2021 [facility] Start: 12-21-2021 End: 12-22-2021 Emergency department patient visit Sharon Olivia MD Work Phone: [facility] Emergency Dept Comment on above: Heel ulceration, lef t, with unspecified severity (HCC) (Primary Dx) Start: 12-19-2021 End: 12-19-2021 ambulatory [facility] Work Phone: Start: 12-19-2021 End: 12-19-2021 Departed Referred [facility] Kathy [facility] Start: 12-19-2021 Registered [facility] Start: 12-12-2021 End: 12-12-2021 ambulatory [facility] Work Phone: Start: 12-12-2021 End: 12-12-2021 Departed Referred [facility] [employer] Start: 12-12-2021 Registered Ref[facility] Start: 12-08-2021 End: 12-08-2021 ambulatory [facility] Work Phone: Start: 12-08-2021 End: 12-08-2021 Departed Referred [facility] [employer] Start: 12-08-2021 Registered [facility] Start: 12-05-2021 End: 12-05-2021 ambulatory [facility] Work Phone: Start: 12-05-2021 End: 12-05-2021 Departed Referred [facility] [employer] Start: 12-05-2021 [facility] Start: 12-01-2021 End: 12-01-2021 [facility] Start: 12-01-2021 [facility] Start: 11-28-2021 End: 11-28-2021 [facility] Start: 11-28-2021 [facility] Start: 11-25-2021 Rx Renewal Monika Elias rt Work Phone: [facility] Work Phone: Start: 11-23-2021 End: 11-23-2021 [facility] Start: 11-23-2021 [facility] Start: 11-22-2021 End: 11-22-2021 [facility] Start: 11-22-2021 [facility] Start: 11-21-2021 End: 11-21-2021 [facility] Start: 11-15-2021 AUDIT Shiela Jada rt Work Phone: [facility] Work Phone: Start: 11-14-2021 End: 11-14-2021 [facility] Start: 11-14-2021 [facility] Start: 11-08-2021 End: 11-08-2021 [facility] Start: 11-08-2021 [facility] Start: 11-04-2021 End: 11-04-2021 [facility] Start: 11-04-2021 Registered Referred [facility] Start: 10-31-2021 End: 11-01-2021 Emergency department patient visit UNKNOWN PROVIDER [facility] Start: 10-31-2021 End: 11-01-2021 Emergency department patient visit Dante Kim MD Work Phone: [facility] Emergency Dept Comment on above: Other fatigue (Prima ry Dx) Start: 10-31-2021 End: 10-31-2021 Departed Referred [facility] Start: 10-21-2021 End: 10-29-2021 Evaluation and management of inpatient UNKNOWN PROVIDER [facility] Start: 10-21-2021 End: 10-29-2021 Evaluation and management of inpatient Lisa Michelle DO Work Phone: [facility] Comment on above: Leg swelling (Primar y Dx); Acute deep vein thrombosis (DVT) of proximal vein of lower extremity, unspecified laterality (HCC) Start: 10-20-2021 End: 10-20-2021 Departed Referred [facility] Start: 10-17-2021 Telephone encounter Nicole davis MD Work Phone: [facility] Comment on above: Missed Appointment Start: 09-19-2021 End: 09-19-2021 Departed Referred [facility] Start: 11-02-2020 AUDIT Monika Elias rt Work Phone: [facility] Work Phone: Start: 10-27-2020 AUDIT Monika Elias rt Work Phone: [facility] Work Phone: Start: 07-13-2020 Patient encounter procedure Monika Staley [facility] Work Phone: Start: 04-13-2020 [facility] Work Phone: Start: 04-07-2020 Patient encounter procedure Wing Ritter [facility] Work Phone: Start: 03-18-2020 Patient encounter procedure Wing Stone [facility] Work Phone: Start: 01-20-2020 Patient encounter procedure Monika Staley MD [facility] Work Phone: Start: 11-13-2019 End: 11-13-2019 Subsequent hospital visit by physician [facility] Comment on above: Non-pressure chronic ulcer left lower leg, 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] Start: 11-06-2019 Patient encounter procedure Monika Staley MD QZ-Tbnnrntfyx-Ztfqb Work Phone: Start: 06-18-2019 End: 06-18-2019 Subsequent [...] Start: 10-26-2021 Electroencephalogram w/rec awake&asleep Sarina Pineda RIVET TAPPING MACHINE OPERATOR - [employer] Work Phone: Start: 10-26-2021 Ct head/brain w/o co ntrast material Sarina Pineda RIVET TAPPING MACHINE OPERATOR - [employer] Work Phone: Start: 10-26-2021 Prothrombin time Andres Sheridan MD Work Phone: Start: 10-25-2021 Speech and language therapy regime Sarina Pineda RIVET TAPPING MACHINE OPERATOR - [employer] Work Phone: Start: 10-25-2021 Prothrombin time Andres [...] Blood count reticulo cyte automated Ellen Scherer RIVET TAPPING MACHINE OPERATOR - [employer] Work Phone: Start: 10-21-2021 C-reactive protein Loua nn B Niesha RIVET TAPPING MACHINE OPERATOR - [employer] Work Phone: Start: 10-21-2021 Non-invas physiologi c std extremity art 2 level Shruthi Malik RIVET TAPPING MACHINE OPERATOR - [employer] Work Phone: Start: 10-21-2021 Radex calcaneus mini mum 2 views Shruthi Malik RIVET TAPPING MACHINE OPERATOR - [employer] Work Phone: Start: 10-21-2021 Dup-scan xtr veins [...] Type: BLOOD SPECIMENOrdering Facility: [facility] Address: [address] [place] [address] Performed By: #### T SCR ####[facility] BLOOD BANKIA [id number] [address] Start: 08-04-2021 Antibody screen Comment on above: Order Comment: Speci men Type: BLOOD SPECIMENOrdering Facility: [facility] Address: [address] [place] [address] Performed By: #### T SCR ####[facility] BLOOD [facility]IA [id number] [address] Start: 08-01-2021 Antibody screen Comment on above: Order Comment: Speci men Type: BLOOD SPECIMENOrdering Facility: [facility] Address: [address] [place] [address] Performed By: #### T SCR ####[facility] BLOOD BANKCLIA [id number] [place] [address] [facility] Start: 06-07-2021 Antibody screen Comment on above: Order Comment: Speci men Type: BLOOD SPECIMEN Performed By: #### T SCR ####[facility] BLOOD BANKCLIA [id number] [place] [address] [facility] Start: 09-02-2020 Lipid 1996 panel - S bradly or Plasma Rebecca Buck MD Work Phone: Start: 04-07-2020 Echocardiography Wing Ritter Start: 11-13-2019 Radiologic examinati on tibia & fibula 2 views 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 (Rotary Soil Stabilizer Operator) Debbie Work Phone: Hernia repair Monika melvin History of Cholecystotomy An yvette Staley History of Creation Of Subdural-Peritoneal CSF Shunt Monika Staley History of Interrupt ion Inferior Vena Cava [place] Filter Placement Monika Staley Urine culture Plan of Treatment Date Care Activity Detail Author Start: 09-22-2026 DTaP/Tdap/Td vaccine (2 - Td or Tdap) DTaP/Tdap/Td vaccine (2 - Td or Tdap) [facility] Start: 09-22-2026 DTaP/Tdap/Td vaccine (2 - Td) DTaP/Tdap/Td vaccine (2 - Td) [facility] Work Phone: Start: 09-22-2026 DTaP/Tdap/Td Vaccine s (2 - Td or Tdap) DTaP/Tdap/Td Vaccines (2 - Td or Tdap) [facility] Start: 09-02-2025 Lipid panel Lipid Panel [facility] Start: 03-02-2025 Registered Referred Registered Refer red [employer] [employer] Start: 02-26-2025 Registered Referred Registered [facility] Start: 02-23-2025 Registered Referred Registered [facility] red [facility] Start: 02-19-2025 Registered Referred Registered [facility] red [facility] Start: 02-16-2025 Registered Referred Registered [facility] Start: 08-22-2024 DIABETES SCREEN DIABETES SCREEN [facility] Start: 12-04-2023 Lipid panel Lipids [facility] Start: 12-04-2023 Lipid screen Lipid screen [facility] Work Phone: Start: 09-13-2023 End: 09-13-2023 Patient encounter procedure 09/13/2023 11:30 AM EDT Office Visit [facility] [address] [place] [id number] Rebecca Buck MD [address] [place] [address] [facility] Start: 08-31-2023 End: 08-31-2023 Patient encounter procedure 08/31/2023 9:30 AM EDT Appointment [facility] [address] [place] [id number] Rebecca Buck MD [address] [place] [address] [facility] Start: 08-13-2023 End: 08-12-2024 Basic metabolic 1998 panel - Serum or Plasma Basic metabolic panel Lab Routine Calculus of ureter Expected: 08/13/2023 (Approximate), Expires: 08/12/2024 [facility] [email or web address] Comment on above: Expected: 08/13/2023 (Approximate), Expires: 08/12/2024 Start: 08-13-2023 End: 08-12-2024 CT Abdomen WO contrast CT abdomen pelvis wo IV contrast Imaging Routine Left flank pain Calculus of ureter Expected: 08/13/2023, Expires: 08/12/2024 [facility] [email or web address] Comment on above: Expected: 08/13/2023 , Expires: 08/12/2024 Start: 08-13-2023 End: 02-12-2024 PSA, Monitoring ([facility]) PSA, Monitoring ([facility]) Lab Routine Disease of prostate Expected: 08/13/2023 (Approximate), Expires: 02/12/2024 [facility] [employer] Work Phone: Comment on above: Expected: 08/13/2023 (Approximate), Expires: 02/12/2024 Start: 08-13-2023 End: 08-13-2023 Patient encounter procedure 08/13/2023 10:00 AM EDT Office Visit [facility] [address] [place] [id number] Rebecca Buck MD [address] [place] [address] [facility] Start: 07-17-2023 Bacteria identified in Urine by Culture [facility] Start: 07-17-2023 [facility] Start: 07-16-2023 Measurement of substance [facility] Start: 05-07-2023 Medicare Advantage A nnual Wellness Visit Medicare Advantage Annual Wellness Visit [facility] Start: 03-02-2023 Creatinine measurement Creatinine Le carmela [facility] Start: 03-02-2023 Potassium measurement Potassium Leve l [facility] Start: 08-22-2022 Diabetes mellitus screening Diabetes Screening [facility] Start: 01-05-2022 Influenza vaccination [facility] Start: 12-23-2021 EPV, Provider: Wing Ritter, Status: Pen, Time: 9:30 AM EPV, Provider: Wing Ritter, Status: Pen, Time: 9:30 AM [facility]-Ssmcegpwwr-Yae ks Work Phone: Start: 12-05-2021 Influenza vaccination Flu vaccine (# 1) [facility] Start: 12-05-2021 Blood chemistry [facility] Work Phone: Start: 12-05-2021 Complete blood count [facility] Work Phone: Start: 12-05-2021 [facility] Work Phone: Start: 12-01-2021 [facility] Work Phone: Start: 08-05-2021 COVID-19 VACCINE (4 - Booster for Moderna series) COVID-19 VACCINE (4 - Booster for Moderna series) [facility] Start: 08-05-2021 COVID-19 Vaccine (4 - Booster for Pfizer series) COVID-19 Vaccine (4 - Booster for Pfizer series) [facility] Start: 06-01-2021 COVID-19 Vaccine (4 - Booster for Pfizer series) COVID-19 Vaccine (4 - Booster for Pfizer series) [facility] Start: 05-07-2021 ADVANCE DIRECTIVE DISCUSSION ADVANCE DIRECTIVE DISCUSSION [facility] Start: 08-11-2020 Screening for malign ant neoplasm of colon [facility] Start: 07-30-2020 Screening for malign ant neoplasm of colon [facility] Start: 01-20-2020 Echocardiography Echocardiogram MP-[facility] [address] [place] Work Phone: Start: 01-06-2020 Influenza vaccination INFLUENZA (#1) [facility] Start: 12-04-2019 Annual Wellness Visi t (AWV) Annual Wellness Visit (AWV) [facility] Start: 12-04-2019 Creatinine monitoring Creatinine mon itoring [facility] Work Phone: Start: 12-04-2019 Hepatitis C screen Hepatitis C scree n [facility] Work Phone: Comment on above: Postponed from 05/06 (Patient Refused) Start: 12-04-2019 Potassium monitoring Potassium monit oring [facility] Work Phone: Start: 12-04-2019 Prostate specific an tigen measurement Prostate Specific Antigen (PSA) Screening or Monitoring [facility] Start: 12-04-2019 Shingles Vaccine (1 of 2) Day gles Vaccine (1 of 2) [facility] Work Phone: Comment on above: Postponed from 05/06 (Patient Refused) Start: 06-07-2019 Colon Cancer Screen FIT/FOBT [facility] Work Phone: Start: 08-14-2017 LIPID SCREEN LIPID SCREEN [facility] Start: 2017 ADVANCE DIRECTIVE DISCUSSION ADVANCE DIRECTIVE DISCUSSION [facility] Start: 2017 PNEUMOCOCCAL: 65+ (1 - PCV) PNEUMOCOCCAL: 65+ (1 - PCV) [facility] Start: 2017 PNEUMOVAX AGE 65 AND OVER WITH 5YR LOOKBACK (#1) PNEUMOVAX AGE 65 AND OVER WITH 5YR LOOKBACK (#1) [facility] Start: 04-14-2016 DIABETES SCREEN DIABETES SCREEN [facility] Start: 2012 RSV Immunization age d 60 or older (1 - 1-dose 60+ series) RSV Immunization aged 60 or older (1 - 1-dose 60+ series) [facility] Start: 2007 PROSTATE CANCER SCRE ENING DISCUSSION PROSTATE CANCER SCREENING DISCUSSION [facility] Start: 2002 Shingles vaccine (1 of 2) Day gles vaccine (1 of 2) [facility] Start: 2002 SHINGRIX VACCINE (1 of 2) DAY GRIX VACCINE (1 of 2) [facility] Start: 2002 Tuberculosis screening COLOREC MONIQUE CANCER SCREENING,SEE MODIFIER [facility] Start: 2002 Zoster Vaccines (1 of 2) Zoste r Vaccines (1 of 2) [facility] Start: 1997 COLOGUARD (FIT-DNA) COLOGUARD (FIT-D NA) [facility] Start: 1997 Colonoscopy COLONOSCOPY [facility] Start: 1997 COLORECTAL CANCER SCREENING COLORECTAL CANCER SCREENING [facility] Start: [address] COLONOGRAPHY [facility] Start: 1997 FECAL OCCULT BLOOD FECAL OCCULT BLOO D [facility] Start: 1997 Screening for malign ant neoplasm of colon [facility] Start: 1997 SIGMOIDOSCOPY SIGMOIDOSCOPY [facility] Start: 1987 Diabetes screen Diabetes screen [facility] Start: 1971 Urine microalbumin profile DTAP,TDAP,TD (1 - Tdap) [facility] Start: 1970 ANNUAL PCP TEAM MANUFACTURERS SERVICE REPRESENTATIVE KEESHA DISEASE VISIT ANNUAL PCP TEAM CHRONIC DISEASE VISIT [facility] Start: 1970 BP CONTROLLED (<130/80) BP CONTROLLE D (<130/80) [facility] Start: 1970 Diabetes mellitus screening Diabetes Screening [facility] Start: 1970 HEPATITIS C SCREENING HEPATITIS C SC PHIL [facility] Start: 1970 Hepatitis C screening [facility] Start: 1964 Adult depression screening assessment DEPRESSION SCREENING [facility] Start: 1964 Depression Screen Depression Screen [facility] Start: 1962 Diabetic foot examination Diabetes: Foot Exam [facility] Start: 1962 Glaucoma screening Diabetes: R etinopathy Screening [facility] Start: 1962 Preventive dental service Diabetes: Dental Exam [facility] Start: 1952 Echocardiography Echocardiogram [facility] Start: 1952 Hemoglobin A1c measurement Diabetes: Hemoglobin A1C [facility] Start: 1952 Lipid panel Lipid Panel [facility] Start: 1952 Screening for malign ant neoplasm of colon [facility] Bacteria identified in Urine by Culture Urine Culture [facility] Work Phone: End: 03-02-2022 CBC W Auto Differential panel - Blood CBC with Auto Differential Lab Routine One Time for 1 Occurrences starting 03/02/2022 until 03/02/2022 [facility] Work Phone: Comment on above: One Time for 1 Occur rences starting 03/02/2022 until 03/02/2022 End: 03-02-2022 Comprehensive metabolic 2000 panel - Serum or Plasma Comprehensive Metabolic Panel Lab STAT One Time for 1 Occurrences starting 03/02/2022 until 03/02/2022 [employer] Work Phone: Comment on above: One Time for 1 Occur rences starting 03/02/2022 until 03/02/2022 End: 09-06-2023 CT Abdomen WO contrast [facility] [employer] Work Phone: Comment on above: Once for 1 Occurrenc es starting 09/06/2023 until 09/06/2023 End: 12-22-2021 Culture, Blood 2 Culture, Blood 2 Microbiology STAT One Time for 1 Occurrences starting 12/22/2021 until 12/22/2021 [employer] Work Phone: Comment on above: One Time for 1 Occur rences starting 12/22/2021 until 12/22/2021 End: 12-22-2021 Microscopic examination of blood, culture Culture, Blood Microbiology STAT One Time for 1 Occurrences starting 12/22/2021 until 12/22/2021 [email or web address] Work Phone: Comment on above: One Time for 1 Occur rences starting 12/22/2021 until 12/22/2021 Microscopic examinat ion of blood, culture Culture, Blood Microbiology STAT 12/22/2021 12:22 AM EDT [facility]: Oxygen therapy [[facility]] Initiate Oxygen Therapy Protocol Respiratory Care Routine As Needed until discontinued starting 10/21/2021 [facility] Comment on above: As Needed until disc ontinued starting 10/21/2021 Protime-INR Protime-INR Lab Routine Daily until discontinued starting 10/23/2021, 7 completed [facility] Work Phone: Comment on above: Daily until disconti nued starting 10/23/2021, 7 completed End: 03-02-2022 Protime-INR Protime-INR Lab Routine One Time for 1 Occurrences starting 03/02/2022 until 03/02/2022 [facility] Work Phone: Comment on above: One Time for 1 Occur rences starting 03/02/2022 until 03/02/2022 Spirometry panel Incentive stef metry Respiratory Care Routine Daily until discontinued starting 10/21/2021 [facility] Work Phone: Comment on above: Daily until disconti nued starting 10/21/2021 End: 10-21-2021 Wound ostomy eval Wound ostomy eval Wound Ostomy Routine One Time for 1 Occurrences starting 10/21/2021 until 10/21/2021 [facility] Work Phone: Comment on above: One Time for 1 Occur rences starting 10/21/2021 until 10/21/2021 [facility] NEGATED: Highlighted row has been ruled out! Planned Goals not documented [facility] Work Phone: Immunizations Immunization Date Immunization Notes Care Provider Christopher chu 03-04-2019 influenza, high dose seasonal, preservative-free [facility] 12-03-2018 pneumococcal polysac charide vaccine, 23 valent Sarika Salas [facility] Work Phone: 01-25-2018 influenza, high dose seasonal, preservative-free [facility] 02-14-2017 influenza, injectabl e, quadrivalent, contains preservative [facility] 09-22-2016 pneumococcal conjuga te vaccine, 13 valent Sarika Salas [facility] Work Phone: 09-22-2016 tetanus toxoid, redu patrice diphtheria toxoid, and acellular pertussis vaccine, adsorbed Sarika [facility]ENDAR[facility] Work Phone: 02-24-2016 influenza, injectabl e, quadrivalent, contains preservative Sarika ARMENDARIZ 02-08-2015 influenza virus vacc ine, unspecified formulation Sarika ERAZOA Work Phone: 02-04-2013 pneumococcal Conjuga te, unspecified formulation Sarika ARMENDARIZ Work Phone: Payers Date Payer Category Payer Unknown [id number] 03-19-2024 Self-pay 01-05-2022 Medicaid 01-05-2022 Medicare 01-05-2022 Medicare [id number] 10-05-2021 Medicaid [id number] [id number] 06-07-2021 Medicare UHC MEDICARE UHC DUAL COMPLETE HMO SNP [id number] 06/07/2021-Present [phone] [address] [place] [address] Medicare [id number] [id number] 06-07-2021 Medicare UHC MEDICARE UNITEDHEALTHCARE DUAL COMPLETE [id number] 06/07/2021-Present [phone] [address] [place] [address] [id number]. 2.7.3.057231.315 11-05-2019 Medicare UHC AARP MEDICAR E [facility] AARP MEDICARE HMO [id number] 11/05/2019-Present O [id number]. 2.7.3.687271.315 07-06-2015 Medicare UHC MEDICARE UHC MEDICARE COMPLETE xxxxxxxxx 2015-Present xxxxxxxxx 1.2.840.233895.1.13.239. 2.7.3.398670.315 1950 Unknown [id number] 2.16.840.1.487802.3.579. 2.668 1950 Unknown [id number] 2.840.1.522030.3.579. 2.668 1950 Unknown [id number] 2..840.1.384182.3.579. 2.05-06-1950 Unknown [id number] .840.1.170727.3.579. 2.05-06-1950 Unknown [id number] 2.840.1.095658.3.579. 2.05-06-1950 Unknown [id number] 2.840.1.736553.3.579. 2.8 1950 Unknown [id number] 2.840.1.598782.3.579. 2.8 Private Health Insurance Unknown Unknown [id number] 2.840.1.663047.3.579. 2.462 Unknown [id number] 2.840.1.900006.3.579. 2.462 Unknown [id number] 2.840.1.964348.3.579. 2.462 Unknown [id number] 2.840.1.182182.3.579. 2.462 Unknown [id number] 2.840.1.106447.3.579. 2.462 Unknown [id number] .840.1.651837.3.579. 2.462 Unknown [id number] 2.840.1.222624.3.579. 2.462 Unknown [id number] 2.840.1.797248.3.579. 2.462 Unknown [id number] 2.840.1.293122.3.579. 2.462 Unknown [id number] 2.840.1.157476.3.579. 2.462 Unknown [id number] 2.16.840.1.623981.3.579. 2.462 Unknown [id number] 2.16.840.1.035255.3.579. 2.462 Unknown [id number] 2.16.840.1.753567.3.579. 2.462 Unknown [id number] 2.16.840.1.938510.3.579. 2.462 Unknown [id number] 2.16.840.1.013265.3.579. 2.462 Unknown [id number] 2.16.840.1.413998.3.579. 2.462 Unknown [id number] 2.840.1.861747.3.579. 2.462 Unknown [id number] 2..840.1.428623.3.579. 2.462 Unknown [id number] 2.840.1.579648.3.579. 2.462 Unknown [id number] 2.840.1.513264.3.579. 2.462 Unknown [id number] 2.840.1.784403.3.579. 2.462 Unknown [id number] 2.16.840.1.448147.3.579. 2.462 Unknown [id number] 2.16.840.1.318960.3.579. 2.462 Unknown [id number] 2.840.1.849349.3.579. 2.462 Unknown [id number] 2..840.1.116990.3.579. 2.462 Unknown [id number] 2.16.840.1.335332.3.579. 2.462 Unknown [id number] 2.16.840.1.690698.3.579. 2.462 Unknown [id number] 2.16.840.1.269015.3.579. 2.462 Unknown [id number] 2.840.1.017743.3.579. 2.462 Unknown [id number] 2.16.840.1.814574.3.579. 2.462 Unknown [id number] 2.16.840.1.493221.3.579. 2.462 Unknown [id number] 2.16.840.1.663846.3.579. 2.462 Unknown [id number] 2.16840.1.907258.3.579. 2.462 Unknown [id number] 2.16.840.1.352078.3.579. 2.462 Unknown [id number] 2.840.1.046497.3.579. 2.462 Unknown [id number] 2.840.1.478727.3.579. 2.462 Unknown [id number] 2.840.1.922431.3.579. 2.462 Unknown [id number] 2.840.1.472311.3.579. 2.462 Unknown [id number] 2.840.1.736910.3.579. 2.462 Unknown [id number] 2.840.1.119570.3.579. 2.462 Unknown [id number] 2.840.1.290762.3.579. 2.462 Unknown [id number] 2.840.1.610917.3.579. 2.462 Unknown [id number] 2.840.1.256528.3.579. 2.462 Unknown [id number] 2.840.1.116856.3.579. 2.462 Unknown [id number] 2.840.1.245443.3.579. 2.462 Unknown [id number] 2.840.1.555176.3.579. 2.462 Unknown [id number] 2.16840.1.062615.3.579. 2.462 Unknown [id number] 2.16.840.1.161466.3.579. 2.462 Unknown [id number] 2.16.840.1.520040.3.579. 2.462 Unknown [id number] 2.16.840.1.697734.3.579. 2.462 Unknown [id number] 2.16.840.1.926326.3.579. 2.462 Unknown [id number] 2.16.840.1.449635.3.579. 2.462 Unknown [id number] 2.16.840.1.649880.3.579. 2.462 Unknown [id number] 2..840.1.412362.3.579. 2.462 Unknown [id number] 2..840.1.398462.3.579. 2.462 Unknown [id number] 2.840.1.911900.3.579. 2.462 Unknown [id number] 2..840.1.816649.3.579. 2.462 Unknown [id number] 2..840.1.266456.3.579. 2.462 Unknown [id number] 2..840.1.744383.3.579. 2.462 Unknown [id number] 2..840.1.922084.3.579. 2.462 Unknown [id number] 2.840.1.726257.3.579. 2.462 Unknown [id number] 2..840.1.025175.3.579. 2.462 Unknown [id number] 2..840.1.334122.3.579. 2.462 Unknown [id number] 2.16.840.1.571750.3.579. 2.462 Unknown [id number] 2.16.840.1.600055.3.579. 2.462 Unknown [id number] 2..840.1.718499.3.579. 2.462 Unknown [id number] 2.16.840.1.744175.3.579. 2.462 Unknown [id number] 2.16.840.1.576924.3.579. 2.462 Unknown [id number] 2.16.840.1.738896.3.579. 2.462 Unknown [id number] 2.16.840.1.080403.3.579. 2.462 Unknown [id number] 2.16.840.1.268622.3.579. 2.462 Unknown [id number] 2.16.840.1.235413.3.579. 2.462 Unknown 39108823 2.16.840.1.148899.3.579. 2.462 Unknown 57534730 2.16.840.1.477535.3.579. 2.462 Unknown 68009883 2.16840.1.135207.3.579. 2.462 Unknown 43373130 2.16840.1.663276.3.579. 2.462 Unknown 39815007 2.16.840.1.900966.3.579. 2.462 Unknown 82479858 2.16.840.1.437675.3.579. 2.462 Unknown 72328390 2.16.840.1.162211.3.579. 2.462 Unknown 09885447 2.16.840.1.662100.3.579. 2.462 Unknown 30212635 2.16.840.1.171902.3.579. 2.462 Unknown 67454510 2.16.840.1.000071.3.579. 2.462 Unknown 80105673 2.16.840.1.136195.3.579. 2.462 Unknown 60798702 2.16.840.1.943875.3.579. 2.462 Unknown 44822602 2.16.840.1.016355.3.579. 2.462 Unknown 49298484 2.16.840.1.004007.3.579. 2.462 Unknown 44518673 2.16.840.1.506435.3.579. 2.462 Unknown 10655269 2.16.840.1.142830.3.579. 2.462 Unknown 37456352 2.16.840.1.456311.3.579. 2.462 Unknown 73004922 2.16.840.1.192673.3.579. 2.462 Unknown 12337189 2.16.840.1.693594.3.579. 2.462 Unknown 65133411 2.16.840.1.947948.3.579. 2.462 Unknown 33589459 2.16.840.1.988908.3.579. 2.462 Unknown 60573682 2.16.840.1.192090.3.579. 2.462 Unknown 90112013 2.16.840.1.276699.3.579. 2.462 Unknown 35076317 2.16.840.1.949237.3.579. 2.462 Unknown 17464439 2.16.840.1.554715.3.579. 2.462 Unknown 85843720 2.16.840.1.440560.3.579. 2.462 Unknown 35262842 2.16.840.1.409015.3.579. 2.462 Unknown 15368670 2.16.840.1.249752.3.579. 2.462 Unknown 54797901 2.16.840.1.556866.3.579. 2.462 Unknown 69394058 2.16.840.1.356584.3.579. 2.462 Unknown 33799105 2.16.840.1.751084.3.579. 2.462 Unknown 35114816 2.16.840.1.581177.3.579. 2.462 Unknown 78556816 2.16.840.1.040790.3.579. 2.462 Unknown 40359061 2.16.840.1.483596.3.579. 2.462 Unknown 67375727 2.16.840.1.827903.3.579. 2.462 Unknown [id number] 2.16.840.1.771876.3.579. 2.462 Unknown 70332079 2.16.840.1.747549.3.579. 2.462 Unknown [id number] 2.16.840.1.906002.3.579. 2.462 Unknown [id number] 2.16.840.1.068023.3.579. 2.462 Unknown [id number] 2.16.840.1.718054.3.579. 2.462 Unknown [id number] 2.16.840.1.845619.3.579. 2.462 Unknown [id number] 2.16.840.1.308491.3.579. 2.462 Unknown [id number] 2.16.840.1.571982.3.579. 2.462 Social History Date Type Detail Facility Start: 05-23-2018 End: 05-19-2019 Tobacco smoking status NVIS Former smoker [employer] Work Phone: History of tobacco use Cigar Smoker [employer] Work Phone: Start: 05-19-2019 End: 08-13-2023 Cigarettes smoked current (pack per day) - Reported [employer] Work Phone: Start: 05-19-2019 End: 08-13-2023 Alcohol intake Current non-drinker of alcohol (finding) [employer] Work Phone: Start: 12-03-2018 History SDOH Physica l Activity DPW 7 [employer] Work Phone: Start: 12-03-2018 History SDOH Physica l Activity MPS 9 [facility] Work Phone: Start: 12-03-2018 End: 10-31-2021 History SDOH Stress 1 [facility] Work Phone: Start: 12-03-2018 History SDOH Financial 5 [facility] Work Phone: Start: 12-03-2018 History SDOH Transpo rt Med 2 [facility] Work Phone: Start: 1950 Sex Assigned At Not on file S [facility] Work Phone: Start: 08-13-2012 End: 11-13-2019 Tobacco smoking status NHIS Never smoker [facility] Start: 05-23-2018 End: 11-13-2019 Tobacco use and exposure Never used [facility] Start: 11-13-2019 History SDOH Alcohol Std Drinks 98 [facility] Start: 10-11-2021 End: 02-15-2022 Exposure to SARS-CoV-2 (event) Not sure [facility] Start: 1950 Sex Assigned At Male [facility] History of tobacco use Current smoker [facility] Work Phone: History of tobacco use Cigarette Smoker S [facility] Work Phone: Start: 10-31-2021 End: 08-13-2023 Tobacco use panel [facility] Tobacco smoking stat us NVIS Unknown if ever smoked [facility] Work Phone: Start: 07-11-2024 End: 08-21-2024 Sex Male (finding) [facility] NEGATED: Highlighted row - - [facility] Work Phone: Medical Equipment Procedure Code Equipment Code Equipment Origin al Text Equipment Identifier Dates Kit Bactiseal Woodard maria guadalupe Silicone Barium Catheter Shunt Sterile - [id number] Start: 06-08-2021 Catheter Bactise al 14cm External Drainage Csf Sterile Latex Free - [id number] Start: 08-05-2021 Valve Certas Shannon nt Inline - [id number] Start: 06-08-2021 Valve Certas Shannon nt Inline - [id number] Start: 08-05-2021 Cass snow [facility] - [id number]_[id number] Start: 08-09-2021 Goals Date Patient [...] status health issues are not documented Disease [facility] Work Phone: Mental Status Date Assessment Result Facility NEGATED: Highlighted row Cognitive function [Interpretation] Cognitive status health issues are not documented Disease [facility] Work Phone: Clinical Notes [...] Hydrocephalus, adult (CMS/HCC) (HCC) Kidney stone Neuropathy DIRECT ENTRY MIDWIFE (ventriculoperitoneal) shunt status Past Surgical History: Procedure [...] [facility] 08-31-2023 Note S: Shanthi from [facility] with [facility] nurse regarding voiding trial procedure. [...] Protocols used: Information Only Call - No [facility]23 Telephone encounter Note S: Shanthi from [facility] with [facility] regarding voiding trial procedure. [...] Protocols used: Information Only Call - No Arwxou-PUFLK-VI [facility] 08-31-2023 Miscellaneous Notes S: Shanthi from [facility] spoke with [facility] nurse regarding voiding trial [...] Protocols used: Information Only Call - No Qkiwmt-QLYEQ-NQ documented in this encounter [facility] 08-29-2023 Telephone encounter Note Chidi on greg vm to advise them to call the number for the power manager to get clarification, and to call back with further questions [facility] 08-29-2023 Miscellaneous Notes Chidi on greg vm to advise them to call the number for the power manager to get clarification, and to call back with further questions Yes, they will need to call the number given to them. Please advise Name of caller: Shanthi Contact phone number: [phone] Relationship to Patient: patient Provider: MD Quinn Practice: [facility] Urology Chief Complaint/Reason [...] to reach out to call Maury Cedeño Plant Care Worker at [facility] [phone] to get clarifications. CAC did reach back out to [facility] and advised and provider Maury's #. [...] Name of caller: Shanthi Contact phone number: [phone] Relationship to Patient: patient Provider: MD Quinn Practice: [facility] Urology Chief Complaint/Reason [...] to reach out to call Maury Cedeño Plant Care Worker at [facility] [phone] to get clarifications. CAC did reach back out to [facility] and advised and provider Maury's #. [...] Hydrocephalus, adult (CMS/HCC) (HCC) Kidney stone Neuropathy DIRECT ENTRY MIDWIFE (ventriculoperitoneal) shunt status Past Surgical History: Past [facility]2023 Telephone encounter Note [facility] called in stating appt scheduled 07/10/23 Remer has to be made further out, pt being transported by cot. Changed appt to 08/13/23 per [facility] only avail time for transport, first avail with DR Buck at 10:00 AM. [facility] 06-25-2023 Miscellaneous Notes [facility] stating appt scheduled 07/10/23 Remer has to be made further out, pt being transported by cot. Changed appt to 08/13/23 per [facility] only avail time for transport, first avail with DR Buck at 10:00 AM. documented in this encounter [facility] 12-22-2021 Hospital Discharge instructions SANIA Lou - 12/22/2021 2:32 AM EDT Please take medication as prescribed Please follow up with your Physicians as instructed in this discharge paperwork Thank you for choosing [facility] I appreciate your patience Please return to the emergency department if your symptoms worsen, or new symptoms develop as discussed documented in this encounter [facility] Work Phone: 10-29-2021 Note Hospitalist [...] abnormality and previous indwelling tubing history of DIRECT ENTRY MIDWIFE shunt ? #?Bilateral lower extremity wounds-wound care [...] neurologist. Patient will be transferred to the skilled nursing and his Coumadin was continued, dosing instructions were given. Wound care was given for his lower extremity wounds. Consults: neurology, vascular surgery, gastroenterology Discharge Instructions: Diet: No diet orders on file Activity: as tolerated Disposition: Patient discharged in stable condition to skilled nursing . Greater than 30 minutes spent discharging [...] Your Medications These medications were sent to [facility] [address] [place] [address] [address] [facility] - P [phone] - F [phone] [facility] [id number] ? levETIRAcetam 750 MG tablet ? warfarin 6 MG tablet Recommended Follow-up: No follow-up provider specified. Complexity of Follow up: [] Moderate Complexity: follow up within 7-14 calendar days (37546) [x] Severe Complexity: follow up within 7 calendar days (08111) Follow up Testing, Pending results or Referrals [...] PCP: MONIKA STALEY MD Discharging Nurse: Fabi [facility] Hospital Unit/Room#: 146/1461 Discharging Unit Emergency Contact: Extended Emergency Contact Information Primary Emergency Contact: NelsonTriny Address: [address] [place] [address] [address] [place], [place] [address] [place] [address] Relation: Brother/Sister Secondary Emergency Contact: Melissa Sifuentes [...] older Afluria) 02/24/2016, 02/14/2017 Pneumococcal Conjugate 13-valent (Gzxeunv05) 09/22/2016 Pneumococcal Conjugate Vaccine 02/04/2013 Pneumococcal Polysaccharide (Dzlkdtvxp09) 12/03/2018 Tdap (Boostrix, Adacel) 09/22/2016 Active Problems: Patient Active Problem List Diagnosis Code Flank pain, acute R10.9 Night muscle spasms M62.838 Chronic fatigue R53.82 Hydrocephalus ([facility]) G91.9 Neuropathy G62.9 Erectile dysfunction N52.9 Fluid retention in tissues R60.9 Hyperlipidemia E78.5 Morbidly obese ([facility]) E66.01 Leg wound, left S81.802A DVT, lower extremity, recurrent, unspecified laterality ([facility]) I82.409 Moderate malnutrition ([facility]) E44.0 History of seizures Z87.898 Isolation/Infection: Isolation [...] Dependent Dressing Dependent Toileting Dependent Feeding Dependent Production 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 Dependent Med Delivery whole in pudding [...] Q4H prn SOB Oxygen Therapy: {Therapy; copd oxygen:23271} Ventilator: { CC Vent List:[id number]} Rehab Therapies: {THERAPEUTIC INTERVENTION:[id number]} Weight Bearing Status/Restrictions: Weight Bearing - Patient was bedbound in hospital Other Medical Equipment (for information only, NOT a DME order): wheelchair, hospital bed, and Boaz Other Treatments: Patient's personal belongings (please select all that are sent with patient): {[facility] DME Belongings:312694199} RN SIGNATURE: CASE MANAGEMENT/SOCIAL WORK SECTION Inpatient Status Date: Readmission Risk Assessment Score: Readmission Risk Risk of Unplanned Readmission: 11 Discharging to Facility/ Agency Name: Address: Phone: Fax: Dialysis Facility (if applicable) Name: Address: Dialysis Schedule: Phone: Fax: Fish Header/Education Dean signature: {Esignature:[id number]} PHYSICIAN SECTION Prognosis: Fair Condition at Discharge: Stable Rehab Potential (if transferring to Rehab): Fair Recommended Labs or Other Treatments After Discharge: Coumadin based on INR target range 2-3, Coumadin 6 mg on 10/30 and 10/31, recheck INR 11/01 and notify physician, ideally should be on 6 mg alt with 7 mg daily, PT/OT, follow-up with neurologist in 1 month, continue [facility] Physician Certification: I certify the above information and transfer of Andrew Sfiuentes is necessary for the continuing treatment of the diagnosis listed and that he requires Correction Facility for greater than 30 days. Update Admission H&P: No change in H&P PHYSICIAN SIGNATURE: documented in this encounter [facility]: 10-29-2021 History of Present illness Narrative [facility] Anticoagulation Management Service ([facility]) Inpatient Warfarin Consult HPI: Andrew Sifuentes is a 71 y.o. 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 [...] PharmD IRVIN Consult Service is available daily [phone]. Please search for covering pharmacist name via Portable Internet or Groups --> Pharmacy --> Anti-Coagulation Consult Pharmacist (on 3rd page). If no response via Portable Internet, please page [phone]. Patient seen and chart reviewed. Afebrile. Adequate oxygenation on room air. Baseline mentation. Exam stable X 5 systems. Hgb 11.0 WBC 10.0 K Platelets 344 K Creatinine 0.71 GFR > 90 cc/min. NSE 20.8 with hemolysis. PT 30.8 INR 3.1 Conversion to Warfarin has been completed. APS w/u pending. Discussed with patient's cleaning staff supervisor. Will continue to monitor. Total visit time > 35 minutes. Neurology Attending Progress Note SUBJECTIVE: No issues overnight. Care discussed with nursing staff/patient's medical team MRI brain reported nothing acute. Assessment and Plan: 71 yr M with H obstructive hydrocephalus s/p DIRECT ENTRY MIDWIFE shunt in 1987, needing multiple revisions and [...] normal limits and both old and new DIRECT ENTRY MIDWIFE shunt tubing noted. At present patient is awake, follows commands, was able to tell his name, and that he was in hospital but not oriented to time. Per documentation patient had NCSE in May 2021, was on Vimpat, but it was discontinued as there was no evidence of recurrent seizures in july 2021 by Neurology at [facility], per daughter patient was on Dilantin [...] normal limits and both old and new DIRECT ENTRY MIDWIFE shunt tubing noted -EEG mild to moderate slow, no seizures reported -Labs reviewed -Hydrocephalus management per Neurosurgery. At present patient does not have hydrocephalus on CT head done this admission. No Neurosurgery services available as inpatient in [facility]. Patient can follow up with Neurosurgery as outpatient and if ends up needing inpatient neurosurgery requirement then may need to be transferred to [facility]. -No clear clinical signs of ventriculitis. Defer evaluation to primary medical team/ID as deemed necessary. -Discussed with daughter in detail on . She was concerned that patient has had h/o seizures, and he has been taken off seizure medication, per note documentation patient had NCSE in May 2021 when he was admitted to [facility]. Per daughter she would want patient [...] the weekend, primary hospitalist team to contact special education associate Neurology at [facility] for any weekend neurological issues related to the patient and if need to discuss any neurological test results/findings. Other deal in house Neurology coverage will be available from Sunday at [facility] and please call special education associate Neurology back on Sunday if need further assistance. This note has been generated using deskwolf dictation software. It may contain incorrect words, punctuation's and spellings that were not noted in the review of the note prior to signing. This note has been generated using deskwolf dictation software. It may contain incorrect words, [...] eGFR >90.0 >60 mL/min EGFR IF NonAfrican Croatian >90.0 >60 mL/min Calcium 9.1 8.4 - [...] 26 AST 24 BILITOT 0.4 LABALBU 3.7 @[facility]) ABGs: )No results for input(s): [...] Radiology ACCESSION EXAM DATE/TIME PROCEDURE ORDERING PROVIDER [id number] 10/21/2021 15:30 EDT CR Calcaneus 2+ Views [id number] -HELENA, SHRUTHI Left CPT code 59135 Reason For Exam (CR Calcaneus 2+ Views [...] 10/26/2021 [id number] Computed Tomography ACCESSION EXAM DATE/TIME PROCEDURE ORDERING PROVIDER [id number] 10/26/2021 11:[address] Head or Brain w/o JUNIE PINEDA ALLISON Contrast CPT code 11336 Reason For Exam (CT Head or Brain w/o Contrast) hydrocephalus. thank you Report CLINICAL INFORMATION: Hydrocephalus. Shunt. 3 mm axial cuts through the head are obtained without IV contrast. The examination is compared to a previous study dated 06/29/2014. FINDINGS: Old DIRECT ENTRY MIDWIFE shunt tubing is noted bilaterally. The new [...] are clear. IMPRESSION: 1. Old and new DIRECT ENTRY MIDWIFE shunt tubing. 2. No hydrocephalus. 3. Atrophy [...] Imaging ACCESSION EXAM DATE/TIME PROCEDURE ORDERING PROVIDER [id number] 10/23/2021 11:08 EDT MRI Abdomen w/o Contrast WING SRIVASTAVA CPT code 28233 Reason For Exam (MRI Abdomen w/o Contrast) [...] 10/21/2021 [facility]: [id number] Nuclear Medicine ACCESSION EXAM DATE/TIME PROCEDURE ORDERING PROVIDER [id number] 10/21/2021 07:55 EDT NM Pulmonary Perfusion [id number] MAY BOGGS w/ Vent Aerosol CPT code 45524 A9567 Reason For Exam (NM Pulmonary Perfusion [...] Brachial Indices Extremity Bilateral Result Date: 10/22/2021 [facility] --- Ankle Brachial Index Report Patient DO GurpreetB: 1950 Study 10/21/2021 Name: Andrew Gonzalez (71yrs) Date: Age: 71 Account: [id number] Gender: M Loc: 444W BP: Ordering Physician: Shruthi Malik Plate And Weld Inspector: Rody Cross RDMS, RVT Interpreting Physician: Carina Call --- Location: [facility] --- Indications: Foot wounds. Originally ordered as a full PVR. Ordering HOME SUPERVISOR had to modify the order to [...] supine position. Images were obtained using a [employer] vascular ultrasound machine. --- Arterial pressure indices: [...] EXTREMITY BILATERAL VENOUS DUPLEX Result Date: 10/21/2021 [facility] --- Lower Extremity Venous Duplex Report Patient DO GurpreetB: 1950 Study 10/21/2021 Name: Andrew Gonzalez (71yrs) Date: Age: 71 Account: [id number] Gender: M Loc: 444 BP: Ordering Physician: May Cash Plate And Weld Inspector: Rody Cross RDMS, T Interpreting Physician: Carina Call --- Location: [facility] --- Indications: Bilateral lower leg [...] supine position. Images were obtained using a [employer] vascular ultrasound machine. --- Venous flow and [...] Radiology ACCESSION EXAM DATE/TIME PROCEDURE ORDERING PROVIDER [id number] 10/21/2021 08:16 EDT CR Chest 1 View Frontal [id number] MAY BOGGS CPT code 03927 Reason For Exam (CR Chest 1 View [...] Tomography ACCESSION EXAM DATE/TIME PROCEDURE ORDERING PROVIDER [id number] 10/22/2021 13:[address] Abdomen/Pelvis (No SRIVASTAVA, WING PO, No IV) CPT code 62118 Reason For Exam (CT Abdomen/Pelvis (No PO, [...] 10/27/2021 [id number] Magnetic Resonance Imaging ACCESSION EXAM DATE/TIME PROCEDURE ORDERING PROVIDER [id number] 10/27/2021 13:14 EDT MRI Brain w/o Contrast UNASSIGNED, UNASSIGNED CPT code 68482 Reason For Exam (MRI Brain w/o Contrast) stroke Patient has DIRECT ENTRY MIDWIFE shunt in place, please follow Radiology protocol [...] included. Hospitalist Progress Note 10/28/2021 11:37 AM [phone]: Please page me @ [phone] for patient care issues. [phone]: Please page hardwood floor installation helper for any issues@ night Subjective: Admit Date: [...] abnormality and previous indwelling tubing history of DIRECT ENTRY MIDWIFE shunt # Bilateral lower extremity wounds-wound care [...] Services This report was created using the GeneAssess Speaking voice-activated system. Despite prompt dictation and [...] and gloves were worn throughout this session. [facility] Anticoagulation Management Service ([facility]) Inpatient Warfarin Consult HPI: Andrew Sifuentes is a 71 y.o. 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 [...] drug interactions and adjust dose accordingly. 3. [facility] will manage while inpatient and sign off at discharge. Patient resides in a SNF. 4. Will provide warfarin education including [facility] warfarin booklet, if appropriate. Brionna Le, PharmD candidate Josie Gupta RPh, PharmD [facility] Consult Service is available daily [phone]. Please search for covering pharmacist name via Portable Internet or Groups --> Pharmacy --> Anti-Coagulation Consult Pharmacist (on 3rd page). If no response via Portable Internet, please page [phone]. Follow up b/l foot wounds. No new [...] yr M with PMH obstructive hydrocephalus s/p DIRECT ENTRY MIDWIFE shunt in 1987, needing multiple revisions and [...] normal limits and both old and new DIRECT ENTRY MIDWIFE shunt tubing noted. At present patient is awake, follows commands, was able to tell his name, and that he was in hospital but not oriented to time. Per documentation patient had NCSE in May 2021, was on Vimpat, but it was discontinued as there was no evidence of recurrent seizures in july 2021 by Neurology at [facility], per daughter patient was on Dilantin [...] normal limits and both old and new DIRECT ENTRY MIDWIFE shunt tubing noted -EEG mild to moderate slow, no seizures reported -Labs reviewed -Hydrocephalus management per Neurosurgery. At present patient does not have hydrocephalus on CT head done this admission. No Neurosurgery services available as inpatient in [facility]. Patient can follow up with Neurosurgery as outpatient and if ends up needing inpatient neurosurgery requirement then may need to be transferred to [facility]. -No clear clinical signs of ventriculitis. Defer evaluation to primary medical team/ID as deemed necessary. -Discussed with daughter in detail on . She was concerned that patient has had h/o seizures, and he has been taken off seizure medication, per note documentation patient had NCSE in May 2021 when he was admitted to [facility]. Per daughter she would want patient [...] interim. This note has been generated using deskwolf dictation software. It may contain incorrect words, punctuation's and spellings that were not noted in the review of the note prior to signing. This note has been generated using deskwolf dictation software. It may contain incorrect words, [...] LABALBU, AMYLASE, LIPASE in the last 72 hours.@[facility]) ABGs: )No results for input(s): [...] Radiology ACCESSION EXAM DATE/TIME PROCEDURE ORDERING PROVIDER [id number] 10/21/2021 15:30 EDT CR Calcaneus 2+ Views [id number] -SHRUTHI MALIK CPT code 61179 Reason For Exam (CR Calcaneus 2+ Views [...] Tomography ACCESSION EXAM DATE/TIME PROCEDURE ORDERING PROVIDER [id number] 10/26/2021 11:[address] Head or Brain w/o JUNIE PINEDA, SARINA Contrast CPT code 85963 Reason For Exam (CT Head or Brain w/o Contrast) hydrocephalus. thank you Report CLINICAL INFORMATION: Hydrocephalus. Shunt. 3 mm axial cuts through the head are obtained without IV contrast. The examination is compared to a previous study dated 06/29/2014. FINDINGS: Old DIRECT ENTRY MIDWIFE shunt tubing is noted bilaterally. The new [...] are clear. IMPRESSION: 1. Old and new DIRECT ENTRY MIDWIFE shunt tubing. 2. No hydrocephalus. 3. Atrophy [...] Imaging ACCESSION EXAM DATE/TIME PROCEDURE ORDERING PROVIDER [id number] 10/23/2021 11:08 EDT MRI Abdomen w/o Contrast WING SRIVASTAVA CPT code 43838 Reason For Exam (MRI Abdomen w/o Contrast) [...] Medicine ACCESSION EXAM DATE/TIME PROCEDURE ORDERING PROVIDER [id number] 10/21/2021 07:55 EDT NM Pulmonary Perfusion [id number] -MAY CASH w/ Vent Aerosol CPT code 51510 A9567 Reason For Exam (NM Pulmonary Perfusion [...] Brachial Indices Extremity Bilateral Result Date: 10/22/2021 [facility] --- Ankle Brachial Index Report Patient DO GurpreetB: 1950 Study 10/21/2021 Name: Andrew Gonzalez (71yrs) Date: Age: 71 Account: [id number] Gender: M Loc: 444W BP: Ordering Physician: Shruthi Malik Plate And Weld Inspector: Rody Cross RDMS, RVT Interpreting Physician: Carina Call --- Location: [facility] --- Indications: Foot wounds. Originally ordered as a full PVR. Ordering HOME SUPERVISOR had to modify the order to [...] supine position. Images were obtained using a [employer] vascular ultrasound machine. --- Arterial pressure indices: [...] EXTREMITY BILATERAL VENOUS DUPLEX Result Date: 10/21/2021 [facility] --- Lower Extremity Venous Duplex Report Patient DO GurpreetB: 1950 Study 10/21/2021 Name: Andrew Gonzalez (71yr) Date: Age: 71 Account: [id number] Gender: M Loc: 444 BP: Ordering Physician: May Cash Plate And Weld Inspector: Rody Cross RDMS, RVT Interpreting Physician: Carina Call --- Location: [facility] --- Indications: Bilateral lower leg [...] supine position. Images were obtained using a [employer] vascular ultrasound machine. --- Venous flow and [...] Radiology ACCESSION EXAM DATE/TIME PROCEDURE ORDERING PROVIDER [id number] 10/21/2021 08:16 EDT CR Chest 1 View Frontal [id number] MAY BOGGS CPT code 91720 Reason For Exam (CR Chest 1 View [...] Tomography ACCESSION EXAM DATE/TIME PROCEDURE ORDERING PROVIDER [id number] 10/22/2021 13:[address] Abdomen/Pelvis (No SRIVASTAVA, WING PO, No IV) CPT code 47956 Reason For Exam (CT Abdomen/Pelvis (No PO, [...] 2:37 All questions and concerns were addressed. Kahterine Barreto MD Neurology, Vascular Neurology 10/27/2021 12:48 [...] reactivity and state change, indicative of a [id number] diffuse encephalopathy of nonspecific etiology. There are [...] Easy to chew diet/cut up. NEVILLE Jones M.A.CCC/COMMISSIONED FIRE OFFICER Time session ended: 1156 Total session minutes: 23 Images from the original note were not included. Hospitalist Progress Note 10/27/2021 10:40 AM [phone]: Please page me @ [phone] for patient care issues. [phone]: Please page hardwood floor installation helper for any issues@ night Subjective: Admit Date: [...] due to misrecognition of the spoken word. [facility] Anticoagulation Management Service ([facility]) Inpatient Warfarin Consult HPI: Andrew Sifuentes is a 71 y.o. 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 [...] SNF. 4. Will provide warfarin education including [facility] warfarin booklet, if appropriate. Thank you for this consult Brionna Le, PharmD candidate Josie Gupta [facility], PharmD [facility] Consult Service is available daily [phone]. Please search for covering pharmacist name via Portable Internet or Groups --> Pharmacy --> Anti-Coagulation Consult Pharmacist (on 3rd page). If no response via PerfectServe, please page [phone]. I cleaned under patient's finger nails with [...] therapeutic status with Warfarin. Discussed with patient's cleaning staff supervisor. Will continue to monitor. Total visit time [...] if concern Hydrocephalus Chronic WOODARD's - Revised DIRECT ENTRY MIDWIFE shunt - daughter requested that pt have [...] then may need to be transferred to [facility]. Seizure history, unspecified - daughter requested [...] get report from nursing. Continue wound care. [facility] Anticoagulation Management Service ([facility]) Inpatient Warfarin Consult HPI: Andrew Sifuentes is a 71 y.o. 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 [...] PharmD [facility] Consult Service is available daily [phone]. Please search for covering pharmacist name via Portable Internet or Groups --> Pharmacy --> Anti-Coagulation Consult Pharmacist (on 3rd page). If no response via Portable Internet, please page [phone]. Moon daughter stated that any of patient's [...] a small bore straw. Additionally discussed with COMMISSIONED FIRE OFFICER, agreeable to assess tomorrow. Recent Chest Xray/CT [...] and liquids between bites. Treatment Plan Requires COMMISSIONED FIRE OFFICER Intervention: Yes Duration of Treatment: 2 weeks [...] Education Response: Verbalizes understanding;Needs reinforcement Therapy Time COMMISSIONED FIRE OFFICER Individual Minutes Time In: 826 Time Out: 53 Minutes: 26 NEVILLE Jones 10/26/2021 9:20 AM Comprehensive Nutrition Assessment Type and Reason for Visit: Initial (DT referral for wounds) Nutrition Recommendations/Plan: 1. Recommend to continue: Easy to Chew diet with Thin Liquids as currently ordered and safe for patient to participate in. Discussed with: RN, HOME SUPERVISOR, and COMMISSIONED FIRE OFFICER. COMMISSIONED FIRE OFFICER to assess tomorrow, best diet and liquid [...] deltoids),Scapula (trapezius) Fluid Accumulation: Mild Extremities Manager Gift Strength: Not Performed Nutrition Assessment: 71 year [...] a small bore straw. Additionally discussed with COMMISSIONED FIRE OFFICER, agreeable to assess tomorrow. Nutrition Related Findings: [...] Anthropometric Measures: Height: 5' 7.01 (170.2 cm) Phillips Body Weight (IBW): 148 lbs (67 kg) [...] On: Kcal/kg Weight Used for Energy Requirements: Phillips (67.15 kg) Energy (kcal/day): 3694-1520 (27-32 kcal/kg IBW) --> increased need d/t wounds Weight Used for Protein Requirements: Phillips (67.15 kg) Protein (g/day): 67-101 (1.0-1.5 g protein/kg IBW) Method Used for Fluid Requirements: Other (Comment) Fluid (ml/day): 6631-2609 mL daily or per MD Nutrition Diagnosis: [...] Plan of Care discussed with: Patient, RN, HOME SUPERVISOR Edwin Goals: Goals: other (specify) Specify [...] to determine Puja Almanza RD, LD Contact: *[phone] Or Via Portable Internet Hematology/Oncology Attending Progress Note SUBJECTIVE: Patient seen [...] IRON, TIBC, FERRITIN No results found for: [id number] No results found for: FOLATE PT 15.6 INR 1.5 CA 19 - 9 is 17 Protein S 138% Protein C 186% ASSESSMENT AND PLAN GI input appreciated. Patient continues with subtherapeutic INR. GI input appreciated. Discussed with patient's cleaning staff supervisor. Will continue monitor. Total visit time > 35 minutes. [facility] Anticoagulation Management Service ([facility]) Inpatient Warfarin Consult HPI: Andrew Sifuentes is a 71 y.o. 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 [...] drug interactions and adjust dose accordingly. 3. [facility] will manage while inpatient and sign off at discharge. Patient resides in a SNF. 4. Will provide warfarin education including [facility] warfarin booklet, if appropriate. Thank you for this consult Brionna Le, PharmD candidate Josie Gupta RPh, PharmD [facility] Consult Service is available daily [phone]. Please search for covering pharmacist name via Portable Internet or Groups --> Pharmacy --> Anti-Coagulation Consult Pharmacist (on 3rd page). If no response via PerfectServe, please page [phone]. Progress Note 10/25/2021 9:36 AM Name: Andrew [...] if concern Hydrocephalus Chronic WOODARD's - Revised DIRECT ENTRY MIDWIFE shunt DC planning - 10/25/21: INR subtherapeutic, [...] if concern Hydrocephalus Chronic WOODARD's - Revised DIRECT ENTRY MIDWIFE shunt DC planning - Can be DC'd back to ECF once MRI done if no acute findings, MRI is done, defer to hem / onc on plan for that, awaiting chest PA with fluoro Patient seen and chart reviewed. Consult dictated. Will ask GI to assess concerning the etiology of liver lesions. Will continue to monitor. [facility] Anticoagulation Management Service ([facility]) Inpatient Warfarin Consult HPI: Andrew R Gurpreet is a 71 y.o. 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 [...] drug interactions and adjust dose accordingly. 3. [facility] will manage while inpatient and sign off at discharge. Patient resides in a SNF. 4. Will provide warfarin education including [facility] warfarin booklet, if appropriate. Thank you for this consult Brionna Le, PharmD candidate Josie Gupta RPh, PharmD [facility] Consult Service is available daily [phone]. Please search for covering pharmacist name via LucidPort Technologyve or Groups --> Pharmacy --> Anti-Coagulation Consult Pharmacist (on 3rd page). If no response via PerfectServe, please page [phone]. Follow up foot wounds Patient is more alert this morning. Waffle boots are on Ulcer left heel ulcer right foot Foot drop PE, chart reviewed. Patient relates that he does not walk at home. c ontinue wound care. Images from the original note were not included. Hospitalist Progress Note 10/23/2021 1:47 PM [phone]: Please page me ([phone]) or perfect serve me for patient care issues. 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 Pt referred to RD for foot ulcers. Occupational Therapy Facility/Department: [facility] Occupational Therapy Initial Assessment Name: Andrew Sifuentes : 1950 Date of Service: 10/23/2021 OT eval and treat orders received. Chart reviewed. Per notes pt from [facility], is Boaz lift at baseline, non-ambulatory, and requires assist for all ADLs. Will d/c OT orders. Elizabeth Gutierrez OT Physical Therapy Facility/Department: [facility] Physical Therapy Initial Assessment Name: Andrew Sifuentes : 1950 Date of Service: 10/23/2021 PT eval and treat orders received. Chart reviewed. Per notes pt from [facility], is Boaz lift at baseline, non-ambulatory. Will d/c PT orders. Lloyd Silva PT [facility] Anticoagulation Management Service ([facility]) Inpatient Warfarin Consult HPI: Andrew Sifuentes is a 71 y.o. 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 [...] PharmD [facility] Consult Service is available daily [phone]. Please search for covering pharmacist name via Portable Internet or Groups --> Pharmacy --> Anti-Coagulation Consult Pharmacist (on 3rd page). If no response via Portable Internet, please page [phone]. Department of Podiatry Attending Consult Note Reason for Consult: Wound care Requesting Physician: MD Oksana CHIEF COMPLAINT: Foot wounds HISTORY OF PRESENT ILLNESS: The patient is a 71 y.o. male with b/l foot wounds. Patient is awake , but not answering questions. 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 Hospitalist Progress Note 10/22/2021 6:33 AM [phone]: Please page me ([phone]) or perfect serve me for patient care issues. [phone]: Please page IMS night Hospitalist for any issues. Subjective: Admit Date: 10/21/2021 PCP: MONIKA STALEY MD Room#: 234/9487 Admitting Synopsis: 71 y/o male presents from [...] consider MRI if concern Hydrocephalus - Revised DIRECT ENTRY MIDWIFE shunt Interval History: No overnight issues. 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 Hospitalist Progress Note 10/21/2021 5:31 PM [phone]: Please page me ([phone]) or perfect serve me for patient care issues. [phone]: Please page IMS night Hospitalist for any issues. Subjective: Admit Date: 10/21/2021 PCP: MONIKA STALEY MD Room#: 692/1469 Admitting Synopsis: 71 y/o male presents from [...] Will need chronic OAC Hydrocephalus - Revised DIRECT ENTRY MIDWIFE shunt Interval History: No overnight issues. 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 Her phone number is [phone] to speak with whomever was attempting to reach out to her. documented in this encounter KALA Zavala Phone: 10-17-2021 Miscellaneous Notes Mr. Sifuentes missed his hospital stay follow-up appointment w. Dr. Lim today. Called to Reschedule. Could not get through. Subscriber you have dialed not in service - was the automated voice mail. Unable to leave . No other phone# available. Ramya Negro Watch Technician [facility] documented in this encounter [facility] 08-19-2021 Note [facility] 08-19-2021 Note [facility] 08-18-2021 Note [facility] 08-18-2021 Note [facility] 08-17-2021 Note [facility] 08-17-2021 Note [facility] 08-16-2021 Note [facility] 08-16-2021 Note HNO ID: [id number] Author: Katt Kelsey DO Service: Hospital Medicine Author Type: Physician Type: Plan of Care Filed: 08/16/2021 12:26 PM Note Text: Spoke with RN that line is a PICC. Katt Kelsey DO 08/16/2021 12:26 PM [facility] 08-16-2021 Note [facility] 08-16-2021 Note [facility] 08-15-2021 Note [facility] 08-15-2021 Note [facility] 08[facility]15-2021 Note [facility] 08-14-2021 Note [facility] 08-14-2021 Note [facility] 08-13-2021 Note [facility] 08-13-2021 Note [facility] 08-13-2021 Note [facility] 08-13-2021 Note HNO ID: [id number] Author: Interface Note Service: ? Author Type: ? Type: Progress Notes Filed: 08/13/2021 3:10 AM Note Text: Epic Scheduled Downtime: 08/13/2021 1:08:47 AM to 08/13/2021 2:53:47 AM [facility] 08-12-2021 Note [facility] 08-12-2021 Note [facility] 08-12-2021 Note [facility] 08-11-2021 Note [facility] 08[facility]11-2021 Note [facility] 08-11-2021 Note [facility] 08[facility]11-2021 Note [facility] 08[facility]11-2021 Note [facility] 08[facility]11-2021 Note [facility] 08-10-2021 Note [facility] 08-10-2021 Note [facility] 08-10-2021 Note [facility] 08-10-2021 Note [facility] 08-09-2021 Note HNO ID: [id number] Author: Shannon Brooks RN Service: ? Author Type: Registered Nurse Type: Nursing Progress Note Filed: 08/09/2021 7:33 PM Note Text: Report called to unit [facility] 08-09-2021 Note [facility] 08-09-2021 Note [facility] 08-09-2021 Note [facility] 08-08-2021 Note [facility] 08[facility]08-2021 Note [facility] 08-08-2021 Note [facility] 08-07-2021 Note [facility] 08[facility]07-2021 Note [facility] 08[facility]07-2021 Note [facility] 08-07-2021 Note [facility] 08-07-2021 [facility] 08-06-2021 Note [facility] 08[facility]06-2021 Note [facility] 08-06-2021 [facility] 08-05-2021 [facility] 08[facility]05-2021 [facility] 08-05-2021 [facility] 08-04-2021 [facility] 08[facility]04-2021 [facility] 08[facility]04-2021 Note [facility] 08-03-2021 Note [facility] 08[facility]03-2021 Note [facility] 08[facility]03-2021 Note [facility] 08-02-2021 Note [facility] 08[facility]02-2021 Note [facility] 08[facility]02-2021 Note [facility] 08-01-2021 [facility] 08-01-2021 Note [facility] 08-01-2021 [facility] 08[facility]01-2021 Note [facility] 07-31-2021 [facility] 07-31-2021 [facility] 07-30-2021 [facility] 07-30-2021 [facility] 07-30-2021 [facility] 07-29-2021 [facility] 07-29-2021 [facility] 07-29-2021 [facility] 07-28-2021 [facility] 07[facility]28-2021 [facility] 07[facility]28-2021 [facility] 07-27-2021 [facility] 07-27-2021 [facility] 07[facility]27-2021 [facility] 07-26-2021 [facility] 07-26-2021 [facility] 07-26-2021 [facility] 07-26-2021 [facility] 07-26-2021 [facility] 07-25-2021 [facility] 07-25-2021 [facility] 07[facility]25-2021 [facility] 07-25-2021 [facility] 07-24-2021 Note [facility] 07-24-2021 [facility] 07-24-2021 Note [facility] 07-23-2021 [facility] 07-23-2021 [facility] 07-23-2021 [facility] 07[facility]23-2021 Note [facility] 07-23-2021 [facility] 07-22-2021 Note [facility] 07-22-2021 Note [facility] 07-22-2021 Note [facility] 07-21-2021 Note [facility] 07-21-2021 Note [facility] 07-21-2021 Note [facility] 07-21-2021 History of [...] history of fever, elevated WBC, RP hematoma DIRECT ENTRY MIDWIFE shunt tip grew anaerobic gram positive cocci 06/08/2021 PLAN: DIRECT ENTRY MIDWIFE shunt tip sent to [facility] [...] - following CSF studies; 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 for DIRECTOR OF FRONT OFFICE infection at this time - ID following- Continue antibiotics: Meropenem -CSF leak from EVD site, appreciate NSGY recs> stat repeat CTH on 06/07 d/t concern for CSF leak, cephalematoma, CTH unremarkable -Tolerating TF - SBT WTE - PICC line placed documented as of this encounter (statuses as of 10/17/2021) [facility]03-17-2022 [facility]03-16-2022 [facility]03-16-2022 [facility]03-16-2022 Note [facility]03-16-2022 [facility] 07-19-2021 [facility]03-15-2022 [facility]03-15-2022 [facility]03-14-2022 [facility]03-14-2022 [facility]03-13-2022 [facility]03-13-2022 [facility]03-12-2022 Note [facility]03-12-2022 [facility] 07-15-2021 [facility]03-11-2022 [facility]03-10-2022 [facility]03-10-2022 [facility]03-10-2022 [facility]03-09-2022 [facility]03-09-2022 [facility]03-09-2022 Note [facility]03-09-2022 [facility] 07-12-2021 [facility]03-08-2022 [facility]03-07-2022 [facility]03-07-2022 [facility]03-07-2022 [facility]03-07-2022 [facility]03-06-2022 [facility]03-06-2022 Note [facility]03-05-2022 [facility] 07-09-2021 [facility]03-05-2022 [facility]03-05-2022 [facility]03-05-2022 NoteHNO ID: [id number] Author: Lizette Valdrerama RN Service: Nursing Author Type: Registered Nurse Type: Nursing Progress Note Filed: 07/09/2021 1:41 AM Note Text: Report called to [facility]03-04-2022 NoteHNO ID: [id number] Author: Lizette Valderrama RN Service: Nursing Author Type: Registered Nurse Type: Nursing Progress Note Filed: 07/08/2021 8:57 PM Note Text: [address] back to PACU [address] [place], [place] [address]-04-2022 NoteHNO ID: [id number] Author: Sukhi Chery APRN.CNP Service: ? Author Type: Nurse Practitioner Type: Progress Notes Filed: 07/09/2021 6:46 PM Note Text: Connected Care Unit Progress Note Patient Name: Andrew Sifuentes [facility] Admit Date 06/28/2021 Level of Care: Skilled [...] Dept Phone 07/21/2021 11:00 AM NICOLE LIM [phone] HPI: (Per Dr. Beltran) Andrew Sifuentes is being seen today for snf facility (SNF) admission AND management of weakness, tube feed, infected retroperitoneal infection and seizure. ? This is a 71 year old male who presents from [facility] with primary admitting diagnosis of Seizure, [...] CT brain concerning for hydrocephalus. Tip of DIRECT ENTRY MIDWIFE shunt was found to be in the [...] slow to respond. Ordered to transfer to [facility] ED for evaluation of neurological and [...] changes in co (more content not included)... [facility]03-04-2022 [facility]03-04-2022 [facility]03-02-2022 NoteHNO ID: [id number] Author: Sukhi Chery APRN.CNP Service: ? Author Type: Nurse Practitioner Type: Progress Notes Filed: 07/09/2021 6:20 PM Note Text: Connected Care Unit Progress Note Patient Name: Andrew Sifuentes [facility] Admit Date 06/28/2021 Level of Care: Skilled [...] Dept Phone 07/21/2021 11:00 AM NICOLE LIM [phone] HPI: (Per Dr. Beltran) Andrew Sifuentes is being seen today for snf facility (SNF) admission AND management of weakness, tube feed, infected retroperitoneal infection and seizure. ? This is a 71 year old male who presents from [facility] with primary admitting diagnosis of Seizure, [...] CT brain concerning for hydrocephalus. Tip of DIRECT ENTRY MIDWIFE shunt was found to be in the [...] Pharynx: Oropharynx is clear. (more content not included)...[facility]02-28-2022 NoteHNO ID: [id number] Author: Sukhi Chery APRN.CNP Service: ? Author Type: Nurse Practitioner Type: Progress Notes Filed: 07/09/2021 6:07 PM Note Text: Connected Care Unit Progress Note Patient Name: Andrew Sifuentes [facility] Admit Date 06/28/2021 Level of Care: Skilled [...] nursing notes it was drawn by oil and gas principal as vancomycin was being infused; reordered trough - PICC Line Intact - No fevers or chills per patient or staff (R53.81) Debility - Certify therapies - Maintain high falls risk precautions - pt/staff verbalize understanding validated via teach back - Monitor safety awareness Appointments for Next 60 Days Date Time Provider Location Dept Phone 07/21/2021 11:00 AM NICOLE LIM [phone] HPI: (Per Dr. Beltran) Andrew Sifuentes is being seen today for snf facility (SNF) admission AND management of weakness, tube feed, infected retroperitoneal infection and seizure. ? This is a 71 year old male who presents from [facility] with primary admitting diagnosis of Seizure, [...] CT brain concerning for hydrocephalus. Tip of DIRECT ENTRY MIDWIFE shunt was found to be in the [...] to facility records. OBJECTIVE: Labs/diagnostics: 07/04/2021 Glucose=91 Hb=642 K=3.8 Cl=148 CO2=24 BUN=14 Creatinine=0.5 PAU=275 Ca=9.0 Protein,Total=6.7 Albumin=3.6 KjzRalz=536 AST=15 ALT=21 Bilirubin,Totall=0.5 WBC=10.7 RBC=4.04 Hgb=10.9 Hct=35.3 Xgnomelo=741 VancomycinTr (more content not included)...[facility]02-24-2022 NoteHNO ID: [id number] Author: Sukhi Chery APRN.CNP Service: ? Author Type: Nurse Practitioner Type: Progress Notes Filed: 07/09/2021 5:43 PM Note Text: Connected Care Unit Progress Note Patient Name: Andrew Sifuentes [facility] Admit Date 06/28/2021 Level of Care: Skilled [...] Dept Phone 07/21/2021 11:00 AM NICOLE LIM [phone] HPI: (Per Dr. Beltran) Andrew Sifuentes is being seen today for snf facility (SNF) admission AND management of weakness, tube feed, infected retroperitoneal infection and seizure. ? This is a 71 year old male who presents from [facility] with primary admitting diagnosis of Seizure, [...] CT brain concerning for hydrocephalus. Tip of DIRECT ENTRY MIDWIFE shunt was found to be in the [...] to facility records. OBJECTIVE: Labs/diagnostics: 07/01/2021 Glucose=83 Xo=552 K=4.1 Tq=224 CO2=27 BUN=22 Creatinine=0.6 TZD=133 Ca=8.7 WBC=10.8 RBC=3.40 Hgb=9.3 Hct=29.9 Dpcfwppa=488 Vital Signs: BP 128/80 Pulse 77 Temp 36.7 ?C (98 ?F) Resp 20 Ht 182.9 cm (6') Wt 113 kg (249 lb 3.2 oz) SpO2 96% BMI 33.80 kg/m? Physical Exam: Physical Exam Vitals reviewed. Constitutional: General: He is not in acute distress. (more content not included)...[facility]02-21-2022 [facility]02-21-2022 Note [facility]02-20-2022 [facility] 06-26-2021 [facility]02-19-2022 [facility]02-19-2022 [facility]02-18-2022 [facility]02[facility]18-2022 [facility]02-18-2022 [facility]02-17-2022 [facility]02-17-2022 Note [facility]02-17-2022 [facility] 06-22-2021 NoteHNO ID: [id number] Author: Xiomy England RN Service: Nursing Author Type: Registered Nurse Type: Nursing Progress Note Filed: 06/22/2021 7:22 PM Note Text: RT contacted as pt has wheezing auscultated and same auditory. For prn Treatment.[facility]02-16-2022 [facility]02-16-2022 [facility]02-16-2022 [facility]02-16-2022 [facility]02[facility]16-2022 [facility]02-15-2022 [facility]02-15-2022 Note [facility]02-15-2022 [facility] 06-21-2021 [facility]02-14-2022 [facility]02-14-2022 [facility]02-14-2022 [facility]02-14-2022 [facility]02-14-2022 [facility]02-13-2022 [facility]02-13-2022 Note [facility]02-13-2022 [facility] 06-19-2021 [facility]02-13-2022 [facility]02-12-2022 [facility]02-12-2022 [facility]02[facility]12-2022 [facility]02-12-2022 [facility]02-12-2022 [facility]02-12-2022 Note [facility]02-12-2022 NoteHNO ID: [id number] Author: Interface Note Service: ? Author Type: ? Type: Progress Notes Filed: 06/18/2021 3:10 AM Note Text: Epic Scheduled Downtime: 06/18/2021 1:00:00 AM to 06/18/2021 2:27:00 [facility]02-11-2022 Note [facility]02-11-2022 [facility] 06-17-2021 [facility]02-11-2022 [facility]02-11-2022 [facility]02-10-2022 [facility]02-10-2022 [facility]02-10-2022 [facility]02-10-2022 [facility]02-10-2022 Note [facility]02-10-2022 [facility] 06-15-2021 [facility]02-09-2022 NoteHNO ID: [id number] Author: Lamonte Kline DO Service: Neurology ICU Author Type: Resident Type: Plan of Care Filed: 06/15/2021 6:21 PM Note Text: Patient's daughter Melissa updated on plan of care and critical condition, all questions answered.[facility]02-09-2022 [facility]02-09-2022 [facility]02-09-2022 [facility]02-09-2022 [facility]02-09-2022 Note [facility]02-09-2022 [facility] 06-15-2021 [facility]02-08-2022 [facility]02-08-2022 [facility]02-08-2022 [facility]02-08-2022 [facility]02-07-2022 [facility]02-07-2022 [facility]02-07-2022 Note [facility]02-07-2022 [facility] 06-12-2021 [facility]02-06-2022 [facility]02-06-2022 [facility]02-05-2022 [facility]02-05-2022 [facility]02-04-2022 [facility]02-04-2022 [facility]02-04-2022 Note [facility]02-04-2022 [facility] 06-09-2021 [facility]02-03-2022 [facility]02-03-2022 [facility]02-03-2022 [facility]02-02-2022 [facility]02-02-2022 NoteHNO ID: [id number] Author: Luis Diaz RN Service: ? Author Type: Registered Nurse Type: Nursing Progress Note Filed: 06/08/2021 9:23 AM Note Text: Patient off the floor to OR at this time.[facility]02-02-2022 [facility]02-02-2022 [facility] 06-08-2021 NoteHNO ID: [id number] Author: Eloise Samuel RN Service: ? Author Type: Registered Nurse Type: Nursing Progress Note Filed: 06/08/2021 12:46 AM Note Text: Dr. Brito notified of changes throughout shift. No new orders [facility]02[facility] 06-07-2021 NoteHNO ID: [id number] Author: Eloise Samuel RN Service: ? 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 No new orders at this time.[facility]02-01-2022 [facility]02-01-2022 [facility]02-01-2022 [facility]02-01-2022 [facility]01-31-2022 [facility]01-31-2022 [facility]01-31-2022 Note [facility]01-31-2022 [facility] 06-05-2021 [facility]01-30-2022 [facility]01-30-2022 [facility]01-29-2022 [facility]01-29-2022 NoteHNO ID: [id number] Author: Jermaine Miller PA-C Service: Neurosurgery Author Type: Physician Green Building Energy Engineer Type: Plan of Care Filed: 06/04/2021 1:59 PM Note Text: Discussed with Dr. Charles CT brain results. At this time, continue with EVD at 5 [facility]01-29-2022 [facility] 06-04-2021 [facility]01-28-2022 [facility]01-28-2022 NoteHNO ID: [id number] Author: Mauricio Frank DO Service: Neurology ICU Author Type: Physician Type: Plan of Care Filed: 06/03/2021 2:38 PM Note Text: I spoke with Melissa and updated her over the phone. Mauricio Frank, [facility]01-28-2022 [facility]01-28-2022 [facility]01-27-2022 [facility]01-27-2022 [facility]01-27-2022 Note [facility]01-26-2022 [facility] 06-01-2021 [facility]01-26-2022 [facility]01-26-2022 [facility]01-26-2022 [facility]01-25-2022 [facility]01-25-2022 [facility]01-25-2022 [facility]01-25-2022 Note [facility]01-25-2022 [facility] 05-31-2021 [facility] Diagnosis Leg swelling- Primary Swelling of limb Acute deep vein thrombosis (DVT) of proximal vein of lower extremity, unspecified laterality (HCC) DVT, lower extremity, recurrent, unspecified laterality (HCC) Moderate malnutrition (HCC) Malnutrition of moderate degree History of seizures Personal history of other disorders of nervous system and sense organs documented in this encounter [facility] Work Phone: Evaluation noteNo assessment information available [facility] Work Phone: Evaluation note* Diagnosis Other fatigue- Primary [facility] Work Phone: Evaluation note* Diagnosis Heel ulceration, left, with unspecified severity (HCC)- Primary [facility] Work Phone: Evaluation note* Diagnosis Fall, initial encounter- Primary Anticoagulated Encounter for long-term (current) use of anticoagulants documented in this encounter [facility] Work Phone: Evaluation note* Diagnosis Left flank pain- Primary Abdominal pain, unspecified site Calculus of ureter Disease of prostate Unspecified disorder of prostate BPH with urinary obstruction Hypertrophy of prostate with urinary obstruction and other lower urinary tract symptoms (LUTS) documented in this encounter [facility]Evaluation note* Diagnosis Left flank pain Abdominal pain, unspecified site Calculus of ureter documented in this encounter [facility] Ebid.co.zwEvaluation note* Diagnosis Left flank pain- Primary Abdominal pain, unspecified site BPH with urinary obstruction Hypertrophy of prostate with urinary obstruction and other lower urinary tract symptoms (LUTS) History of kidney stones documented in this encounter [facility] HealthInstructions* Name Dates Details Instructions not documented [id number] Work Phone: Instructions* Name Dates Details Instructions not documented [id number] [address] [place] Work Phone: Reason for referral (narrative)No reason for referral information [facility] Work Phone: Advance Directives No Advanced Directives Records FoundDocuments on File Type Date Recorded Patient Freight Claim Investigator Expl anation Advance Directives and Living Will Power of Sheep Killer Documents on File Type Date Recorded Patient Freight Claim Investigator Expl anation Advance Directive(s) 06/02/2021 2:45 PM [...] Maker Relationship: 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 Adult Children (telemarketing representative) Documents on File Type Date Recorded Patient Freight Claim Investigator Expl anation ACP-Advance Directive ACP-Power of Sheep Killer Latest Code Status on File Code Status Date Activated Date Inactivated Comments Full Code 10/21/2021 4:09 AM Healthcare Agents on File Name Relationship Healthcare Agent Relationshi p Communication Melissa Gurpreet Child Primary Decision Maker deann Gurpreet Child Secondary Decision Maker Documents on File Type Date Recorded Patient Freight Claim Investigator Expl anation ACP-Advance Directive ACP-Power of Sheep Killer ACP-Do Not Resuscitate 11/01/2021 7:03 AM Latest Code Status on File Code Status Date Activated Date Inactivated Comments Full Code 10/21/2021 4:09 AM 10/29/2021 7:25 PM Healthcare Agents on File Name Relationship Healthcare Agent Relationshi p Communication Melissa Gurpreet Child Primary Decision Maker deann Gurpreet Child Secondary Decision Maker Documents on File Type Date Recorded Patient Freight Claim Investigator Expl anation ACP-Do Not Resuscitate 11/03/2021 10:15 AM ACP-Do Not Resuscitate 11/01/2021 7:03 AM Healthcare Agents on File Name Relationship Healthcare Agent Relationshi p Communication Melissa Gurpreet Child Primary Decision Maker deann Gurpreet Child Secondary Decision Maker Documents on File Type Date Recorded Patient Freight Claim Investigator Expl anation ACP-Do Not Resuscitate 11/03/2021 10:15 [...] Documents on File Type Date Recorded Patient Freight Claim Investigator Expl anation DNR (Do Not Resuscitate) 10/31/2021 DNR (Do Not Resuscitate) 10/21/2021 Documents on File Type Date Recorded Patient Freight Claim Investigator Expl anation DNR (Do Not Resuscitate) 10/31/2021 [...] Urology Diagnoses Other fatigue Lanette Munguia DO [address] [place] [address] [facility] [address] [place] [address] Referral ID Status Reason Start Date Expiration Date V isits Requested Visits Authorized [id number] Open Specialty Services Required 11/01/2021 11/01/2022 1 [address] [facility] Urology - [place] [address] Specialty Diagnoses / Procedures Referred By Contac t Referred To Contact IP Unit Diagnoses Heel ulceration, left, with unspecified severity (HCC) Henry Hidalgo, [place] [address] [place] [address] [facility] [address] [place] [address] Referral ID Status Reason Start Date Expiration Date V isits Requested Visits Authorized [id number] Open Specialty Services Required 12/22/2021 12/22/2022 1 1 Scheduling Instructions [facility] Wound Care/Hyperbaric - [facility] [address] [place] [address] Comments Please use the parking lot located on [address] or [employer]. There are handicap parking spots located in a small lot beside the wound care entrance off of [address]. Please be advised there is a small incline from those handicap spots to our main door. Bring photo ID and insurance card to photocopy. Wear loose fitting clothing (to easily access wound). Bring list of medications (or can be sent by office). Check in at Registration for your first visit. Please call us directly with any questions [phone]. We look forward to helping you heal. Specialty Diagnoses / Procedures Referred By Aki kumari Referred To Contact Radiology Diagnoses Left flank pain Calculus of ureter Procedures CT abdomen pelvis wo IV contrast Rebecca Buck MD [address] [place] [address] Referral ID Status Reason Start Date Expiration Date V isits Requested Visits Authorized [id number] Pending Review 08/13/2023 08/12/2024 1 1 Referral ID Status Reason Start Date Expiration Date Visits Re quested Visits Authorized [id number] Closed 08/17/2023 09/16/2023 1 1 Additional Source Comments Source Comments (unrecognize d section and content) In the event this informatio n is protected by the Federal Confidentiality of Alcohol and Drug Abuse Patient Records regulations: The Federal rules restrict any use of the information to criminally investigate or prosecute any alcohol or drug abuse patient.[facility] the event this information is protected by the Federal Confidentiality of Alcohol and Drug Abuse Patient Records regulations: The Federal rules restrict any use of the information to criminally investigate or prosecute any alcohol or drug abuse patient.[facility] (unrecognized sect ion and content) No Status Records FoundNo Status Records FoundNo Status Records FoundNo Status Records FoundNo Status Records FoundNo Status Records FoundNo Status Records FoundNo Status Records FoundNo Status Records FoundNo Status Records Found INFORMATION SOURCE (unrecogn ized section and content) DATE CREATED AUTHOR 05/20/2021 [facility] DATE CREATED AUTHOR AUTHOR'S ORGANIZ ATION 06/07/2021 [facility] DATE CREATED AUTHOR AUTHOR'S ORGANIZ ATION 08/02/2021 [facility] DATE CREATED AUTHOR AUTHOR'S ORGANIZ ATION 12/09/2021 [facility] DATE CREATED AUTHOR AUTHOR'S ORGANIZ ATION 12/29/2021 [facility] DATE CREATED AUTHOR AUTHOR'S ORGANIZ ATION 02/04/2022 [facility] DATE CREATED AUTHOR AUTHOR'S ORGANIZ ATION 03/03/2022 [facility] DATE CREATED AUTHOR AUTHOR'S ORGANIZ ATION 09/15/2023 [facility] DATE CREATED AUTHOR AUTHOR'S ORGANIZ ATION 03/18/2025 [facility] Reason for Visit (unrecogniz ed section and content) Reason Comments Missed Appointment Reason Comments Leg Swelling Blood clots Reason Comments Altered Mental Status Pt presents to ED via [facility] for complaint listed. Pt is from [facility]. Pt's LKW was 1000 hours today. Per EMS, pt had a - [place]. Pt denies CP, SOB, and N/V. Pt seems slow to respond, slightly confused at this time. Reason Comments Osteomyelitis Patient from [facility], facility did xrays on left lower leg and and have concerns for possible osteomyelitis A&Ox2 to self and place, stated year 2022 preside Miss martini Reason Comments Fall Patient had unwitnes sed fall at [facility] landed [...] Buck MD [address] [place] [address] Referral ID Status Reason Start Date Expiration Date Visits Re quested Visits Authorized [id number] Closed 08/17/2023 09/16/2023 1 1 Reason Comments [...] Status Dates Carlos NOVAK Attending Provider Active Web Ui Designer Relationship Specialty Start Date End Date Mateus Burris [address] [place] [address] PCP - General Family Practice 11/12/19 Web Ui Designer Relationship Specialty [place] [address] [place] [address] PCP - General Family Medicine 09/09/20 Web Ui Designer Relationship Specialty [place] [address] [place] [address] PCP - General Family Medicine 09/09/20 Web Ui Designer Relationship Specialty [place] [address] [place] [address] PCP - General Family Medicine 09/09/20 Web Ui Designer Relationship Specialty Start Date End Date Carlos Cavazos MD [address] [facility] [address] [place] [address] PCP - General Internal Medicine 02/20/22 Team [...] Monika Staley MD Primary Care Provider Active Web Ui Designer Relationship Specialty Start Date End Date Carlos Cavazos [address] [place] [phone] PCP - General 12/21/21 Rebecca Buck MD [address] [place] [address] [address] [place] [address] Surgeon Urology 06/25/23 Team Status: Inactive Member [...] OLS Attending Provider, Referring Provi lupillo Active Web Ui Designer Relationship Specialty Start Date End Date Carlos Cavazos [address] [place] [phone] PCP - General 12/21/21 Rebecca Buck MD [address] [address] Surgeon Urology 06/25/23 Web Ui Designer Relationship Specialty Start Date End Date Carlos Cavazos [address] [place] [phone] PCP - General 12/21/21 Rebecca Buck MD [address] [address] Surgeon Urology 06/25/23 Web Ui Designer Relationship Specialty Start Date End Date Carlos Cavazos [address] [place] [phone] PCP - General 12/21/21 Rebecca Buck MD [address] [address] Surgeon Urology 06/25/23 Web Ui Designer Relationship Specialty Start Date End Date Carlos Cavazos [address] [place] [phone] PCP - General 12/21/21 Rebecca Buck MD [address] [address] Surgeon Urology 06/25/23 Web Ui Designer Relationship Specialty Start Date End Date Carlos Cavazos [address] [place] [phone] PCP - General 12/21/21 Rebecca Buck MD [address] [address] Surgeon Urology 06/25/23 Web Ui Designer Relationship Specialty Start Date End Date Carlos Cavazos [address] [place] [phone] PCP - General 12/21/21 Rebecca Buck MD [address] [address] Surgeon Urology 06/25/23 Team Status: Inactive Member Role Status Dates Dr. Monika Staley MD Primary Care Provider Active Start: March 13, 2024 End: March 13, 2024 [facility] Attending Provider Active Start: March [...] March 17, 2024 End: March 17, 2024 [facility] Attending Provider Active Start: March 17, 2024 End: March 17, 2024 Team Status: Inactive Member Role Status Dates Dr. Monika Staley MD Primary Care Provider Active Start: March 18, 2024 End: March 18, 2024 [facility] Attending Provider Active Start: March [...] March 20, 2024 End: March 20, 2024 [facility] Attending Provider Active Start: March [...] March 27, 2024 End: March 27, 2024 [facility] Attending Provider Active Start: March [...] Care Provider Active Start: July 07, 2024 [facility] Attending Provider Active Start: July [...] 22, 2024 End: September 22, 2024 Karon NOAVK MD Attending Provider Active Start: September 22, [...] Active Member Role/Relationship Status Dates Dr. Monika Satley MD Primary care physician Activ e Start: [...] Activ e Start: November 17, 2024 Karon NOAVK MD Attending physician Active Start: November 17, [...] Status Dates Dr. Mnoika Staley MD Primary care physician Activ e [...] Activ e Start: December 15, 2024 Karon NVOAK MD Attending physician Active Start: December 15, [...] Provider: Katlin Julio RN)[phone] (Stopped - Provider: Ktalin Julio RN) [phone] (New Bag - Provider: [...] BE BASED ON THE PRIMARY CLINICAL RECORDS. [facility] [employer] [facility]. provides no warranty or guarantee of the accuracy or completeness of information in this document.
[2025-05-05 09:00] LABS: Prothrombin Time (Protime)PT. 29.5 SECONDS (11.7-14.9)
== END ==
LOC: OLS.SANC 05:00
PROVIDERS: PCP General Practice
DX: Z79.01 Long term (current) use of anticoagulants (principal)
CPT/HCPCS: 36415; 85610